=== PATIENT | female | born 1975 | race Caucasian/White ===

== ENCOUNTER 2023-05-27 19:49 | Emergency (ER) | payer OTHER, SELFPAY ==
[2023-05-27 19:54] VITALS: BP 167/95; PULSE 103; RESP 18; TEMP 36.6; O2SAT 97; BMI 44.3
--- NOTE | 2023-05-27 22:38 | ED_ITS ---
HPI - Back Pain/Injury General Chief Complaint: Back Pain/Injury Stated Complaint: Lower Back Pain Time Seen by Provider: 05/27/23 20:01 Source: patient Mode of arrival: walk-in Limitations: no limitations History of Present Illness HPI Narrative: This 48-year-old female with a history of chronic low back pain who states she has herniated discs in her back and is scheduled to see a neurosurgeon at [facility] later this month presents for evaluation of ongoing and worsening low back pain. The patient states they are opening up a new [address] in [place] and she was lifting some boxes recently and thinks she re-irritated her herniated disks. She has pain in her low back that goes down into her buttocks and both legs. She denies any recent injury. She has no loss of bowel or bladder control. She has not had a fever. She has never had any back surgery. She has been seen recently several times at [facility] emergency department and received pain medication but she states that was because she had a broken right thumb. She denies any new or changing weakness or numbness. He states she was previously receiving a cream that had gabapentin and it that did help her somewhat. She also received 90 Percocet 90 gabapentin on 04/13/2023. I discussed this with her and she states that was prescribed by her family physician who is no longer practicing family medicine and moved to [place]. Related Data Home Medications Medication Instructions Recorded Confirmed cream base no.47 (bulk) (Base, applic topical 05/27/23 PCCA Vanpen topical cream) gabapentin 300 mg capsule mg 05/27/23 glecaprevir 100 mg-pibrentasvir 40 tab PO 05/27/23 mg tablet (Mavyret) ibuprofen 800 mg tablet mg 05/27/23 lidocaine 5 % topical patch patch 05/27/23 methocarbamol 500 mg tablet mg 05/27/23 methocarbamol 750 mg tablet mg 05/27/23 oxycodone 5 mg capsule mg 05/27/23 promethazine 25 mg rectal mg KS 05/27/23 suppository tizanidine 4 mg tablet mg 05/27/23 Allergies Allergy/AdvReac Type Severity Reaction Status Date / Time hydrocodone Allergy Verified 05/27/23 19:58 ketorolac [From Toradol] Allergy Verified 05/27/23 19:58 Penicillins Allergy Verified 05/27/23 19:58 Review of Systems ROS Status of ROS 10 or more systems reviewed and unremark able except as noted in history and below [facility] Social History Smoking status: Current every day smoker Exam Narrative Exam Narrative: Nurses note and vital signs reviewed and patient is not hypoxic. Blood pressure is elevated at 167/95, pulse is mildly elevated at 103. General: Obese female resting comfortably on a stretcher, she is ambulatory with a steady gait, no respiratory distress Skin: Warm, dry, no pallor noted. There is no rash noted. Head: Normocephalic, atraumatic Eye: Normal conjunctiva, no drainage, EOMI. PERRL Cardiovascular: Regular Rate and Rhythm S1 S2, no murmurs, rubs or gallops Respiratory: Patient is in no distress, no accessory muscle use, lungs are clear to auscultation, no wheezing, rales or rhonchi Back: Lumbar soft tissue tenderness with no bony vertebral step-off, skin rash or other notable abnormality GI: Normal bowel sounds, no tenderness to palpation, no masses appreciated. No rebound, guarding, or rigidity noted. Musculoskeletal: The patient has no evidence of calf tenderness, no pitting edema, symmetrical pulses noted bilaterally, pain in low back with straight leg raising bilaterally Neurological: A&O x4, normal speech, no saddle anesthesia, DTRs are brisk and equal bilaterally, lower extremity push and pulls are intact and equal bilate rally Psychiatric: Cooperative Constitutional Vital Signs, click to edit/add: Last Vital Signs Temp 97.9 F 05/27/23 19:54 Pulse 103 H 05/27/23 19:54 Resp 18 05/27/23 19:54 BP 167/95 H 05/27/23 19:54 Pulse Ox 97 05/27/23 19:54 Course Vital Signs Vital signs: Vital Signs Temperature 97.9 F 05/27/23 19:54 Pulse Rate 103 H 05/27/23 19:54 Respiratory Rate 18 05/27/23 19:54 Blood Pressure 167/95 H 05/27/23 19:54 Pulse Oximetry 97 05/27/23 19:54 Temperature 97.9 F 05/27/23 19:54 Pulse Rate 103 H 05/27/23 19:54 Respiratory Rate 18 05/27/23 19:54 Blood Pressure 167/95 H 05/27/23 19:54 Pulse Oximetry 97 05/27/23 19:54 MDM - Back Pain/Injury MDM Narrative Medical decision making narrative: This 48 showed female history of chronic low back pain who is a herniated disc and has been seen by multiple providers recently presents for evaluation of ongoing and worsening back pain. She has low back pain that radiates into her hips and down her legs bilaterally. This is chronic in nature. She has not had any bowel or bladder dysfunction. She states her pain has gotten worse recently because she has been lifting boxes because they are opening up a new [employer] where she works. Her neuro exam is normal she is able to her the study gait. 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 She is a smoker. She has a follow-up appointment later this month with a neurosurgeon at [facility]. I did review her orders report. Her last prescription for narcotic analgesics was on 05/12/2023 when she received 9 oxycodone from a provider at [facility] emergency department. She was medicated emergency department with a dose of Solu-Medrol. I ordered Toradol but she states she is ALLERGIC to Toradol. She was given 2 Percocet in the emergency department and will be given a prescription for 10 Percocet to use as needed. I explained to her that [facility] emergency Department is not her go to for pain management and she needs to quit smoking and follow up closely with neurosurgery and her family physician. Discharge Plan Discharge Chief Complaint: Back Pain/Injury Clinical Impression: Acute exacerbation of chronic low back pain Patient Disposition: Home, Self-Care Time of Disposition Decision: 22:40 Condition: Good Prescriptions / Home Meds: No Action methocarbamol 500 mg tablet ibuprofen 800 mg tablet tizanidine 4 mg tablet promethazine 25 mg suppository KS methocarbamol 750 mg tablet lidocaine 5 % adhesive patch,medicated oxycodone 5 mg capsule gabapentin 300 mg capsule Base, PCCA Vanpen Cream TOPICAL Mavyret 100-40 mg tablet PO Instructions: Pain Management (ED), Chronic Pain (ED), Chronic Back Pain (DC), Heat Pack Application (ED), Opioid Safety (ED) Referrals: Physician,Non-Staff, MD [Primary Care Provider] - 1 week Stand Alone Forms: Portal Instructions
[2023-05-27] MEDS: METHYLPREDNISOLONE SOD SUCC PF 125 MG/2 ML VIAL IM (23:04)
[2023-05-27] MEDS: OXYCODONE HCL/ACETAMINOPHEN 5MG/325MG 2 TAB PO (23:04)
== END 2023-05-27 23:15 | disposition home or self-care (01) ==
PROVIDERS: Emergency Provider Emergency Medicine
DX: M54.50 Low back pain, unspecified (principal); G89.29 Other chronic pain; Z79.899 Other long term (current) drug therapy; F17.210 Nicotine dependence, cigarettes, uncomplicated
CPT/HCPCS: 96372; 99284; J2930

== ENCOUNTER 2023-06-05 14:20 | Emergency (ER) | payer OTHER, SELFPAY ==
[2023-06-05 14:25] VITALS: BP 129/98; PULSE 92; RESP 20; TEMP 37.1; O2SAT 97; BMI 44.3
[2023-06-05] MEDS: HYDROMORPHONE HCL 1 MG/ML CARTRIDGE IM (14:58)
[2023-06-05] MEDS: ORPHENADRINE 60 MG/ 2 ML VIAL IM (14:58)
--- NOTE | 2023-06-05 15:01 | ED.BACK1 ---
HPI - Back Pain/Injury General Chief Complaint: Back Pain/Injury Stated Complaint: BACK PAIN Time Seen by Provider: 06/05/23 14:45 Source: patient Mode of arrival: walk-in Limitations: no limitations History of Present Illness HPI Narrative: 48-year-old female presents for lower back pain. She bent over to pick something up about noon today and felt pain in her back. She has a history of back issues and has a herniated disc at L4-L5. She is scheduled to have a nerve stimulator placed soon. She always has pain going into her buttocks. She did not fall and this is the same pain she typically has. No dysuria or hematuria. Related Data Home Medications Medication Instructions Recorded Confirmed cream base no.47 (bulk) (Base, applic topical 05/27/23 PCCA Vanpen topical cream) gabapentin 300 mg capsule mg 05/27/23 glecaprevir 100 mg-pibrentasvir 40 tab PO 05/27/23 mg tablet (Mavyret) ibuprofen 800 mg tablet mg 05/27/23 lidocaine 5 % topical patch patch 05/27/23 methocarbamol 500 mg tablet mg 05/27/23 methocarbamol 750 mg tablet mg 05/27/23 oxycodone 5 mg capsule mg 05/27/23 promethazine 25 mg rectal mg MS 05/27/23 suppository tizanidine 4 mg tablet mg 05/27/23 Previous Rx's Medication Instructions Recorded oxycodone-acetaminophen 5 mg-325 1 tab PO Q6H PRN pain 5 days #20 06/05/23 mg tablet (Percocet) tabs Allergies Allergy/AdvReac Type Severity Reaction Status Date / Time hydrocodone Allergy Verified 06/05/23 14:28 ketorolac [From Toradol] Allergy Verified 06/05/23 14:28 Penicillins Allergy Verified 06/05/23 14:28 Review of Systems ROS Narrative A ten point review of systems is negative except as noted above. PFSH PFSH Social History Smoking status: Current every day smoker Exam Narrative Exam Narrative: Nurses note and vital signs reviewed and patient is not hypoxic. General: The patient appears in no apparent distress. Patient is resting comfortably on cart. Skin: Warm, dry, no pallor noted. There is no rash noted. Head: Normocephalic, atraumatic Eye: Normal conjunctiva, no drainage Ears, Nose, Mouth, and Throat: oral mucosa is moist. Nares patent. Cardiovascular: Regular Rate and Rhythm Respiratory: Patient is in no distress, no accessory muscle use, lungs are clear to auscultation, no wheezing, rales or rhonchi Back: No bruise or rash to her back GI: Soft and nontender Musculoskeletal: The patient has no evidence of calf tenderness, no pitting edema, symmetrical pulses noted bilaterally Neurological: A&O, normal speech, upper and lower extremity strength 5 out of 5 and symmetric Psychiatric: Cooperative Constitutional Vital Signs, click to edit/add: Last Vital Signs Temp 98.7 F 06/05/23 14:25 Pulse 92 H 06/05/23 14:25 Resp 20 06/05/23 14:25 BP 129/98 H 06/05/23 14:25 Pulse Ox 97 06/05/23 14:25 O2 Del Method Room Air 06/05/23 14:25 Course Vital Signs Vital signs: Vital Signs Temperature 98.7 F 06/05/23 14:25 Pulse Rate 92 H 06/05/23 14:25 Respiratory Rate 20 06/05/23 14:25 Blood Pressure 129/98 H 06/05/23 14:25 Pulse Oximetry 97 06/05/23 14:25 Oxygen Delivery Method Room Air 06/05/23 14:25 Temperature 98.7 F 06/05/23 14:25 Pulse Rate 92 H 06/05/23 14:25 Respiratory Rate 06/05/23 14:25 Blood Pressure 129/98 H 06/05/23 14:25 Pulse Oximetry 97 06/05/23 14:25 Oxygen Delivery Method Room Air 06/05/23 14:25 MDM - Back Pain/Injury MDM Narrative Medical decision making narrative: The patient was given IM Dilaudid and Norflex and feels improved and she is discharged home on Percocet. Treatment diagnosis and follow-up were discussed with the patient. There is no indication for radiographic imaging. Differential Diagnosis Differential diagnosis: Likely lumbar radiculopathy, strain of lumbar region and other (Acute exacerbation of chronic back pain, herniated disc) Discharge Plan Discharge Stand Alone Forms: Portal Instructions Chief Complaint: Back Pain/Injury Clinical Impression: Acute exacerbation of chronic low back pain Patient Disposition: Home, Self-Care Time of Disposition Decision: 15:29 Condition: Good Mode of Transportation: Private Vehicle Prescriptions / Home Meds: New oxycodone-acetaminophen [Percocet] 5-325 mg tablet 1 tab PO Q6H PRN (Reason: pain) 5 Days Qty: 20 0RF No Action methocarbamol 500 mg tablet ibuprofen 800 mg tablet tizanidine 4 mg tablet promethazine 25 mg suppository MS methocarbamol 750 mg tablet lidocaine 5 % adhesive patch,medicated oxycodone 5 mg capsule gabapentin 300 mg capsule Base, PCCA Vanpen Cream TOPICAL Mavyret 100-40 mg tablet PO Instructions: Acute Low Back Pain (ED) Referrals: Physician,Non-Staff, MD [Primary Care Provider] - 1 week
== END 2023-06-05 15:39 | disposition home or self-care (01) ==
PROVIDERS: Emergency Provider Emergency Medicine
DX: M54.50 Low back pain, unspecified (principal); G89.29 Other chronic pain; Z79.899 Other long term (current) drug therapy; F17.210 Nicotine dependence, cigarettes, uncomplicated
CPT/HCPCS: 96372; 99284; J1170

== ENCOUNTER 2023-06-17 11:45 | Emergency (ER) | payer OTHER, SELFPAY ==
[2023-06-17 12:12] VITALS: BP 172/93; PULSE 78; RESP 16; TEMP 36.8; O2SAT 96; BMI 43.4
--- NOTE | 2023-06-17 12:56 | ED.BACK1 ---
HPI - Back Pain/Injury General Chief Complaint: Back Pain/Injury Stated Complaint: BACK PAIN Time Seen by Provider: 06/17/23 12:45 Source: patient Mode of arrival: walk-in Limitations: no limitations History of Present Illness HPI Narrative: 48-year-old female presents for lower back pain. She has ongoing issues with her back and she states she has bulging disks. She is being evaluated for a nerve stimulator and that is supposed to be placed next month. No new injury. The pain does not radiate and she does not have any weakness or numbness. No dysuria or hematuria. The pain is severe and worse in certain positions. Related Data Home Medications ?Medication ?Instructions ?Recorded ?Confirmed cream base no.47 (bulk) (Base, applic topical 05/27/23 PCCA Vanpen topical cream) gabapentin 300 mg capsule mg 05/27/23 glecaprevir 100 mg-pibrentasvir 40 tab PO 05/27/23 mg tablet (Mavyret) ibuprofen 800 mg tablet mg 05/27/23 lidocaine 5 % topical patch patch 05/27/23 methocarbamol 500 mg tablet mg 05/27/23 methocarbamol 750 mg tablet mg 05/27/23 oxycodone 5 mg capsule mg 05/27/23 promethazine 25 mg rectal mg MD 05/27/23 suppository tizanidine 4 mg tablet mg 05/27/23 Previous Rx's ?Medication ?Instructions ?Recorded oxycodone-acetaminophen 5 mg-325 1 tab PO Q6H PRN pain 5 days #20 06/05/23 mg tablet (Percocet) tabs oxycodone-acetaminophen 5 mg-325 1 tab PO Q6H PRN pain 5 days #20 06/17/23 mg tablet (Percocet) tabs Allergies Allergy/AdvReac Type Severity Reaction Status Date / Time hydrocodone Allergy Verified 06/17/23 12:11 ketorolac [From Toradol] Allergy Verified 06/17/23 12:11 Penicillins Allergy Verified 06/17/23 12:11 Review of Systems ROS Narrative A ten point review of systems is negative except as noted above. PFSH PFSH Social History Smoking status: Current every day smoker Exam Narrative Exam Narrative: Nurses note and vital signs reviewed and patient is not hypoxic. General: The patient appears well and in no apparent distress. Patient is resting comfortably on cart. Skin: Warm, dry, no pallor noted. There is no rash noted. Head: Normocephalic, atraumatic Eye: Normal conjunctiva, no drainage Ears, Nose, Mouth, and Throat: oral mucosa is moist. Nares patent. Cardiovascular: Regular Rate and Rhythm Respiratory: Patient is in no distress, no accessory muscle use, lungs are clear to auscultation, no wheezing, rales or rhonchi Back: No bruise or rash. Ice pack is in place. No focal area of tenderness to palpation. GI: Soft and nontender Musculoskeletal: The patient has no evidence of calf tenderness, no pitting edema, symmetrical pulses noted bilaterally Neurological: A&O, normal speech Psychiatric: Cooperative Constitutional Vital Signs, click to edit/add: Last Vital Signs Temp 98.2 F 06/17/23 12:12 Pulse 78 06/17/23 12:12 Resp 16 06/17/23 12:12 BP 172/93 H 06/17/23 12:12 Pulse Ox 96 06/17/23 12:12 O2 Del Method Room Air 06/17/23 12:12 Course Vital Signs Vital signs: Vital Signs Temperature 98.2 F 06/17/23 12:12 Pulse Rate 78 06/17/23 12:12 Respiratory Rate 16 06/17/23 12:12 Blood Pressure 172/93 H 06/17/23 12:12 Pulse Oximetry 96 06/17/23 12:12 Oxygen Delivery Method Room Air 06/17/23 12:12 Temperature 98.2 F 06/17/23 12:12 Pulse Rate 78 06/17/23 12:12 Respiratory Rate 16 06/17/23 12:12 Blood Pressure 172/93 H 06/17/23 12:12 Pulse Oximetry 96 06/17/23 12:12 Oxygen Delivery Method Room Air 06/17/23 12:12 MDM - Back Pain/Injury MDM Narrative Medical decision making narrative: She was given injections of Dilaudid and Norflex and prescribed Percocet. She was instructed to have follow-up with her physician. Treatment diagnosis and follow-up were discussed with the patient Differential Diagnosis Differential diagnosis: Likely lumbar radiculopathy, sciatica, strain of lumbar region and other (Herniated disc) Discharge Plan Discharge Stand Alone Forms: Portal Instructions Chief Complaint: Back Pain/Injury Clinical Impression: Acute exacerbation of chronic low back pain Patient Disposition: Home, Self-Care Time of Disposition Decision: 12:53 Condition: Good Mode of Transportation: Private Vehicle Prescriptions / Home Meds: New oxycodone-acetaminophen [Percocet] 5-325 mg tablet 1 tab PO Q6H PRN (Reason: pain) 5 Days Qty: 20 0RF No Action oxycodone-acetaminophen [Percocet] 5-325 mg tablet 1 tab PO Q6H PRN (Reason: pain) 5 Days Qty: 20 0RF methocarbamol 500 mg tablet ibuprofen 800 mg tablet tizanidine 4 mg tablet promethazine 25 mg suppository MD methocarbamol 750 mg tablet lidocaine 5 % adhesive patch,medicated oxycodone 5 mg capsule gabapentin 300 mg capsule Base, PCCA Vanpen Cream TOPICAL Mavyret 100-40 mg tablet PO Print Language: Occitan Instructions: Acute Low Back Pain (ED) Referrals: Physician,Non-Staff, MD [Primary Care Provider] - 1 week
[2023-06-17] MEDS: HYDROMORPHONE HCL 1 MG/ML CARTRIDGE IM (13:08)
[2023-06-17] MEDS: ORPHENADRINE 60 MG/ 2 ML VIAL IM (13:09)
== END 2023-06-17 13:15 | disposition home or self-care (01) ==
PROVIDERS: Emergency Provider Emergency Medicine
DX: M54.50 Low back pain, unspecified (principal); G89.29 Other chronic pain; Z79.899 Other long term (current) drug therapy; F17.210 Nicotine dependence, cigarettes, uncomplicated
CPT/HCPCS: 96372; 99284; J1170

== ENCOUNTER 2023-06-25 09:09 | Emergency (ER) | payer OTHER, SELFPAY ==
--- NOTE | 2023-06-25 | MR_ITS ---
[address] [address] Patient Name: JERAD BROWN MRN: [facility]:[id number] date: 1975 Sex: F Assigned Patient Location: ER Current Patient Location: ER Accession/Order Number: [id number] Exam Date: 06/25/2023 11:35 Report Date: 06/25/2023 12:37 At the request of: LYNDA HINTON Procedure: MR lumbar spine wo con EXAM: MR lumbar spine wo con CLINICAL INDICATION: loss of sensation, R/O cauda equina COMPARISON: CT lumbar spine 04/08/2023. TECHNIQUE/PROTOCOL: Noncontrast lumbar spine MR protocol (Sagittal T1, T2, STIR and axial T1, T2 sequences). FINDINGS: Segmentation: Normal. Conus: Terminates at mid L2. Spinal Cord and Cauda Equina: Normal. Epidural Hematoma: None. Alignment: Normal. Marrow Signal: Degenerative reactive marrow endplate changes at L4-L5. Vertebral Body Heights: Maintained. Sacroiliac Joints: Grossly normal given only partially visualized. Paraspinal Soft Tissues: Normal. Retroperitoneal Soft Tissues: No acute abnormalities. Spondylotic Changes: Mild multilevel spondylotic changes include varying degrees of intervertebral disc height loss, disc desiccation, osteophytic ridging, and facet/ligamentum flavum hypertrophy. T12-L1: No disc bulge or herniation. No high-grade spinal canal or foraminal narrowing. L1-L2: No disc bulge or herniation. No high-grade spinal canal or foraminal narrowing. L2-L3: No disc bulge or herniation. No high-grade spinal canal or foraminal narrowing. L3-L4: No disc bulge or herniation. No high-grade spinal canal or foraminal narrowing. L4-L5: Disc bulge with hyperintense T2 annular fissure indents the ventral thecal sac and compresses the transiting left L5 nerve root. Disc material possibly contacts the transiting right L5 nerve root. Mild spinal canal narrowing is also contributed to by moderate bilateral facet/ligamentum flavum hypertrophy. Moderate bilateral foraminal narrowing. L5-S1: Slight disc bulge with superimposed central disc protrusion minimally indents the ventral thecal sac. No high-grade spinal canal narrowing. Moderate right and mild left foraminal narrowing. Moderate bilateral facet hypertrophy. MR/MR lumbar spine wo con IMPRESSION: 1. Mild multilevel spondylotic changes without high-grade spinal canal or foraminal narrowing at any lumbar level. 2. Disc bulge at L4-L5 compresses the transiting left L5 nerve root and possibly contacts the transiting right L5 nerve root. 3. Foraminal narrowing is at most moderate bilaterally at L4-L5 and on the right at L5-S1. Electronically authenticated by: ALEN FRANKEL Date: 06/25/2023 12:37
[2023-06-25 09:14] VITALS: BP 130/88; PULSE 86; TEMP 36.5; O2SAT 97; BMI 44.3
--- NOTE | 2023-06-25 09:22 | PC.NURSE ---
Patient arrives c/o left leg numbness and states that she is unable to tell when her bladder is full. Patient ambulates to room and moves onto bed with no issues. patient is able to do straight leg raises and push/pull tests with equal strength. patient tells this nurse that she had urinary incontinence twice. when physician entered room, patient stated she had two episodes of bowel incontinence and denies the urinary incontinence. patient has motril and flexeril at home but patient states she did not take these prior to arrival.
[2023-06-25] MEDS: ORPHENADRINE 60 MG/ 2 ML VIAL IM (10:25)
--- NOTE | 2023-06-25 13:20 | ED.BACK1 ---
HPI HPI - Back Pain/Injury General Chief Complaint: Back Pain/Injury Stated Complaint: BACK PAIN Time Seen by Provider: 06/25/23 09:13 Source: patient Mode of arrival: walk-in Limitations: no limitations History of Present Illness HPI Narrative: 48-year-old female presents for lower back pain. She was directed here by her neurologist because she called and told him that she had lost control of her bowels twice and could not sense if she needed to urinate or not. She has ongoing issues and is under the care of a neurologist. She has had no fever or dysuria. No injury. Related Data Home Medications ?Medication ?Instructions ?Recorded ?Confirmed cream base no.47 (bulk) (Base, applic topical 05/27/23 PCCA Vanpen topical cream) gabapentin 300 mg capsule mg 05/27/23 glecaprevir 100 mg-pibrentasvir 40 tab PO 05/27/23 mg tablet (Mavyret) ibuprofen 800 mg tablet mg 05/27/23 lidocaine 5 % topical patch patch 05/27/23 methocarbamol 500 mg tablet mg 05/27/23 methocarbamol 750 mg tablet mg 05/27/23 oxycodone 5 mg capsule mg 05/27/23 promethazine 25 mg rectal mg DC 05/27/23 suppository tizanidine 4 mg tablet mg 05/27/23 Previous Rx's ?Medication ?Instructions ?Recorded oxycodone-acetaminophen 5 mg-325 1 tab PO Q6H PRN pain 5 days #20 06/05/23 mg tablet (Percocet) tabs oxycodone-acetaminophen 5 mg-325 1 tab PO Q6H PRN pain 5 days #20 06/17/23 mg tablet (Percocet) tabs Allergies Allergy/AdvReac Type Severity Reaction Status Date / Time hydrocodone Allergy Verified 06/17/23 12:11 ketorolac [From Toradol] Allergy Verified 06/17/23 12:11 Penicillins Allergy Verified 06/17/23 12:11 Opioid HPI Opioid Management Most Recent Opioid Data: Last Pain Scale 8 06/17/23 13:08 Review of Systems ROS Narrative A ten point review of systems is negative except as noted above. PFSH PFSH Social History Smoking status: Current every day smoker Exam Narrative Exam Narrative: Nurses note and vital signs reviewed and patient is not hypoxic. General: The patient appears in no apparent distress. Skin: Warm, dry, no pallor noted. There is no rash noted. Head: Normocephalic, atraumatic Eye: Normal conjunctiva, no drainage Ears, Nose, Mouth, and Throat: oral mucosa is moist. Nares patent. Cardiovascular: Regular Rate and Rhythm Respiratory: Patient is in no distress, no accessory muscle use, lungs are clear to auscultation, no wheezing, rales or rhonchi Back: No bruise or rash GI: no tenderness to palpation, no masses appreciated. No rebound, guarding, or rigidity noted. Musculoskeletal: No ankle edema. Motor strength intact in her lower extremities Neurological: A&O, normal speech; motor strength intact in her lower extremities. Arms have full range of motion Psychiatric: Cooperative Constitutional Vital Signs, click to edit/add: Last Vital Signs Temp 97.7 F 06/25/23 09:14 Pulse 86 06/25/23 09:14 Resp 24 H 06/25/23 09:14 BP 130/88 06/25/23 09:14 Pulse Ox 97 06/25/23 09:14 O2 Del Method Room Air 06/25/23 09:14 Course Vital Signs Vital signs: Vital Signs Temperature 97.7 F 06/25/23 09:14 Pulse Rate 86 06/25/23 09:14 Respiratory Rate 24 H 06/25/23 09:14 Blood Pressure 130/88 06/25/23 09:14 Pulse Oximetry 97 06/25/23 09:14 Oxygen Delivery Method Room Air 06/25/23 09:14 Temperature 97.7 F 06/25/23 09:14 Pulse Rate 86 06/25/23 09:14 Respiratory Rate 24 H 06/25/23 09:14 Blood Pressure 130/88 06/25/23 09:14 Pulse Oximetry 97 06/25/23 09:14 Oxygen Delivery Method Room Air 06/25/23 09:14 MDM - Back Pain/Injury MDM Narrative Medical decision making narrative: MRI findings are discussed with the patient. She was recommended to have pain medication from her neurologist or family doctor or from pain management. She has been in this emergency department multiple times over the past month for ongoing pain. She was given IM Norflex here. No evidence of cauda equina syndrome. Differential Diagnosis Differential diagnosis: Likely lumbar radiculopathy, sciatica and other (Cauda equina) Imaging Data MRI lumbar: Radiologist's impression: ITS Impressions Lumbar Spine MRI 06/25/23 00:00 IMPRESSION: 1. Mild multilevel spondylotic changes without high-grade spinal canal or foraminal narrowing at any lumbar level. 2. Disc bulge at L4-L5 compresses the transiting left L5 nerve root and possibly contacts the transiting right L5 nerve root. 3. Foraminal narrowing is at most moderate bilaterally at L4-L5 and on the right at L5-S1. Electronically authenticated by: ALEN FRANKEL Date: 06/25/2023 12:37 Discharge Plan Discharge Stand Alone Forms: Portal Instructions Chief Complaint: Back Pain/Injury Clinical Impression: Acute exacerbation of chronic low back pain Patient Disposition: Home, Self-Care Time of Disposition Decision: 13:20 Condition: Good Mode of Transportation: Private Vehicle Prescriptions / Home Meds: No Action oxycodone-acetaminophen [Percocet] 5-325 mg tablet 1 tab PO Q6H PRN (Reason: pain) 5 Days Qty: 20 0RF methocarbamol 500 mg tablet ibuprofen 800 mg tablet tizanidine 4 mg tablet promethazine 25 mg suppository DC methocarbamol 750 mg tablet lidocaine 5 % adhesive patch,medicated oxycodone 5 mg capsule gabapentin 300 mg capsule Base, PCCA Vanpen Cream TOPICAL Mavyret 100-40 mg tablet PO oxycodone-acetaminophen [Percocet] 5-325 mg tablet 1 tab PO Q6H PRN (Reason: pain) 5 Days Qty: 20 0RF Print Language: Danish Instructions: Chronic Pain (ED) Referrals: Physician,Non-Staff, MD [Primary Care Provider] - 1 week
== END 2023-06-25 13:32 | disposition home or self-care (01) ==
PROVIDERS: Emergency Provider Emergency Medicine
DX: M54.50 Low back pain, unspecified (principal); G89.29 Other chronic pain; F17.210 Nicotine dependence, cigarettes, uncomplicated; Z79.899 Other long term (current) drug therapy
CPT/HCPCS: 72148; 99285

== ENCOUNTER 2023-07-16 11:20 | Emergency (ER) | payer OTHER, SELFPAY ==
[2023-07-16 11:24] VITALS: BP 169/96; PULSE 88; TEMP 36.8; O2SAT 98; BMI 42.2
--- NOTE | 2023-07-16 12:02 | ED.BACK1 ---
HPI HPI - Back Pain/Injury General Chief Complaint: Back Pain/Injury Stated Complaint: BACK PAIN Time Seen by Provider: 07/16/23 11:26 Source: patient Mode of arrival: walk-in Limitations: no limitations History of Present Illness HPI Narrative: Patient has chronic back pain for which she sees a neurosurgeon and plans to have back surgery next month. Over the last few months she has tried narcotics, lidocaine patches and a variety of other meds without complete relief. She said that right now her surgeon only has me on ibuprofen and won't prescribe anything until my surgery . 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 She presents now with pain in the right lower back that worsened yesterday. No injury or activity to cause the pain to worsen. No bowel or bladder dysfunction,. No fever or chills. No neck pain or abdominal pain. Pain radiates from the right lower back down the outside of the right leg. All of these symptoms are typical for her and the same symptoms she has been experiencing for the last few months. Related Data Home Medications ?Medication ?Instructions ?Recorded ?Confirmed ibuprofen 800 mg tablet 800 mg PO Q8H 05/27/23 07/16/23 fluoxetine 60 mg tablet 60 mg PO DAILY 07/16/23 07/16/23 Previous Rx's ?Medication ?Instructions ?Recorded methocarbamol 750 mg tablet 750 mg PO Q6H PRN pain #30 tabs 07/16/23 nabumetone 750 mg tablet 750 mg PO BID PRN pain #14 tabs 07/16/23 Allergies Allergy/AdvReac Type Severity Reaction Status Date / Time hydrocodone Allergy Verified 06/17/23 12:11 ketorolac [From Toradol] Allergy Verified 06/17/23 12:11 Penicillins Allergy Verified 06/17/23 12:11 Opioid HPI Opioid Management Most Recent Opioid Data: Last Pain Scale 8 07/16/23 11:27 PFSH PFSH Social History Smoking status: Current every day smoker Exam Narrative Exam Narrative: General: Alert, no acute distress, patient resting comfortably Skin: warm, intact, no pallor noted Head: Normocephalic, atraumatic Eye: Normal conjunctiva Respiratory: No acute distress Abdomen: obese. Normal bowel sounds, soft, nontender, no masses detected. No rebound, guarding, or rigidity noted. Back: inspection of the back shows no obvious deformity, no swelling, no ecchymosis, contusion, abrasion, swelling, erythema, fluctuance or induration. Tenderness noted to Right paralumbar soft tissue. Straight leg raise on left is Negative. Straight leg raise on right is Positive. No CVA tenderness noted bilaterally. Musculoskeletal: No deformity noted to bilateral lower extremities. no cyanosis or mottling noted. normal pulses at DP and PT 2+ bilaterally and symmetrically. Normal 5/5 strength at ankles with dorsiflexion and plantar flexion. Patient is able to ambulate. Normal sensation noted to both lower extremities. Neurological: AAOx4, normal sensory and motor observed. L5-S1 reflexes intact symmetrically. DTR 2+ at patellar bilaterally. Psychiatric: Cooperative and interactive. Constitutional Vital Signs, click to edit/add: Last Vital Signs Temp 98.3 F 07/16/23 11:24 Pulse 88 07/16/23 11:24 Resp 18 07/16/23 11:24 BP 169/96 H 07/16/23 11:24 Pulse Ox 98 07/16/23 11:24 O2 Del Method Room Air 07/16/23 11:24 Course Vital Signs Vital signs: Vital Signs Temperature 98.3 F 07/16/23 11:24 Pulse Rate 88 07/16/23 11:24 Respiratory Rate 18 07/16/23 11:24 Blood Pressure 169/96 H 07/16/23 11:24 Pulse Oximetry 98 07/16/23 11:24 Oxygen Delivery Method Room Air 07/16/23 11:24 Temperature 98.3 F 07/16/23 11:24 Pulse Rate 88 07/16/23 11:24 Respiratory Rate 18 07/16/23 11:24 Blood Pressure 169/96 H 07/16/23 11:24 Pulse Oximetry 98 07/16/23 11:24 Oxygen Delivery Method Room Air 07/16/23 11:24 MDM - Back Pain/Injury MDM Narrative Medical decision making narrative: No neurological deficits to suggest acute cauda equina syndrome. No bowel or bladder incontinence or retention. She has normal movement of the lower extremities and intact reflexes and sensation in both lower extremities. The patient received IM Solu-Medrol and IM Norflex before being discharged home with prescriptions for Relafen and Robaxin. She was instructed to follow-up with her surgeon as needed or return to the ED if she worsens. Discharge Plan Discharge Stand Alone Forms: Portal Instructions Chief Complaint: Back Pain/Injury Clinical Impression: Lumbar radiculopathy, Acute exacerbation of chronic low back pain Patient Disposition: Home, Self-Care Time of Disposition Decision: 12:06 Prescriptions / Home Meds: New nabumetone 750 mg tablet 750 mg PO BID PRN (Reason: pain) Qty: 14 0RF methocarbamol 750 mg tablet 750 mg PO Q6H PRN (Reason: pain) Qty: 30 0RF No Action ibuprofen 800 mg tablet 800 mg PO Q8H fluoxetine 60 mg tablet 60 mg PO DAILY Print Language: Nepali Instructions: Chronic Pain (ED), Acute Low Back Pain (ED), Lumbar Radiculopathy (ED) Referrals: Physician,Non-Staff, MD [Primary Care Provider] - 1 week
[2023-07-16] MEDS: ORPHENADRINE 60 MG/ 2 ML VIAL IM (12:11)
[2023-07-16] MEDS: METHYLPREDNISOLONE SOD SUCC PF 125 MG/2 ML VIAL IM (12:11)
[2023-07-16 12:19] VITALS: BP 148/88; PULSE 88; O2SAT 98
== END 2023-07-16 12:20 | disposition home or self-care (01) ==
PROVIDERS: Emergency Provider Emergency Medicine
DX: M54.16 Radiculopathy, lumbar region (principal); G89.29 Other chronic pain; M54.50 Low back pain, unspecified; E66.9 Obesity, unspecified; Z68.41 Body mass index [BMI] 40.0-44.9, adult; F17.210 Nicotine dependence, cigarettes, uncomplicated; Z79.899 Other long term (current) drug therapy
CPT/HCPCS: 96372; 99284; J2919

== ENCOUNTER 2023-08-09 11:04 | Emergency (ER) | payer OTHER, SELFPAY ==
[2023-08-09 11:18] VITALS: BP 150/101; PULSE 85; TEMP 36.7; O2SAT 98; BMI 44.3
--- NOTE | 2023-08-09 13:07 | ED_ITS ---
HPI HPI - Back Pain/Injury General Chief Complaint: Back Pain/Injury Stated Complaint: LOWER BACK PAIN Time Seen by Provider: 08/09/23 13:05 Source: patient Mode of arrival: walk-in Limitations: no limitations History of Present Illness HPI Narrative: Patient is a 48-year-old female presents to the ER with acute on chronic low back pain. Patient states she is scheduled for a spine stimulator to be placed with neurosurgery on 08/20, she was advised to stop her Motrin 14 days before surgery and has since been experiencing increased pain in her lower back. Patient notes chronic pain radiating into her legs that goes down the posterior thigh stopping at the knee. She denies symptoms into her gil or feet. She denies pain into her calf. She denies any bowel or bladder incontinence or saddle paresthesias. Patient notes pain is worse with movement but she is seen pacing about the room in no distress waiting provider in the hallway. Patient is pleasant but states that she typically gets treated with IM pain medication and unfortunately cannot do any more steroids with upcoming surgery. Patient states she does not see pain management. Patient denies any new injury or roma nge in symptoms and states her pain is chronic in her lower back moderate worse with movement and diffuse across the lower lumbar spine. Denies dysuria MD elicited complaint: Reports back pain Pertinent past history: Reports prior back pain; Denies neurological deficit Severity: moderate Similar Symptoms Previously: No Quality: Reports aching Location: Reports lumbar spine Related Data Home Medications ?Medication ?Instructions ?Recorded ?Confirmed ibuprofen 800 mg tablet 800 mg PO Q8H 05/27/23 08/09/23 fluoxetine 60 mg tablet 60 mg PO DAILY 07/16/23 08/09/23 Previous Rx's ?Medication ?Instructions ?Recorded methocarbamol 750 mg tablet 750 mg PO Q6H PRN pain #30 tabs 07/16/23 Allergies Allergy/AdvReac Type Severity Reaction Status Date / Time hydrocodone Allergy Verified 06/17/23 12:11 ketorolac [From Toradol] Allergy Verified 06/17/23 12:11 Penicillins Allergy Verified 06/17/23 12:11 nabumet Allergy Mild Uncoded 07/16/23 12:15 nabumetone Allergy Mild Uncoded 07/16/23 12:15 Review of Systems ROS Constitutional Denies: fever or chills Eyes Denies: change in vision Ears, nose, mouth, and throat Denies: throat pain Cardiovascular Denies: chest pain, palpitations or bluish discoloration of hands/feet Respiratory Denies: shortness of breath or cough Gastrointestinal Denies: abdominal pain Musculoskeletal Reports: back pain and limited range of motion; Denies: neck pain Integumentary/Breast Denies: rash, itching or redness Neurological Denies: headache, numbness in extremities, weakness in extremities or lack of coordination Psychiatric Denies: anxiety Endocrine Denies: excessive urination Allergic/Immunologic Denies: hives [facility] Social History Smoking status: Current every day smoker Exam Narrative Exam Narrative: Vital Signs reviewed and nurse's notes reviewed. The patient is not hypoxic. General: Alert, no acute distress, patient Standing, no acute distress in the doorway upon my arrival to the room. Ambulates easily about the room. Skin: warm, intact, no pallor noted, no rash Head: Normocephalic, atraumatic Eye: Normal conjunctiva, EOMI Respiratory: No acute distress Abdomen: Normal bowel sounds, soft, nontender, no masses detected. No rebound, guarding, or rigidity noted. No midline pulsatile mass. Back: inspection of the back shows no obvious deformity, no swelling, no ecchymosis, contusion, abrasion, swelling, erythema, fluctuance or induration. No step offs or crepitus noted. No CVA tenderness noted bilaterally. Tenderness noted to Paravertebral lumbar region, no midline bony tenderness. Mild spasm noted.. Straight leg raise on left is Negative in seated position . Straight leg raise on right is In seated position. Musculoskeletal: No deformity noted to bilateral lower extremities. no cyanosis or mottling noted. normal pulses at DP and PT 2+ bilaterally and symmetrically. Normal 5/5 strength at ankles with dorsiflexion and plantar flexion. Patient is able to ambulate. Normal sensation noted to the bilateral lower extremities. Neurological: alert and oriented x4, normal sensory and motor observed. DTR 2+ at patellar and achilles bilaterally. Psychiatric: Cooperative Constitutional Vital Signs, click to edit/add: Last Vital Signs Temp 98.1 F 08/09/23 11:18 Pulse 85 08/09/23 11:18 Resp 18 08/09/23 11:18 BP 150/101 H 08/09/23 11:18 Pulse Ox 98 08/09/23 11:18 O2 Del Method Room Air 08/09/23 11:18 Course Vital Signs Vital signs: Vital Signs Temperature 98.1 F 08/09/23 11:18 Pulse Rate 85 08/09/23 11:18 Respiratory Rate 18 08/09/23 11:18 Blood Pressure 150/101 H 08/09/23 11:18 Pulse Oximetry 98 08/09/23 11:18 Oxygen Delivery Method Room Air 08/09/23 11:18 Temperature 98.1 F 08/09/23 11:18 Pulse Rate 85 08/09/23 11:18 Respiratory Rate 18 08/09/23 11:18 Blood Pressure 150/101 H 08/09/23 11:18 Pulse Oximetry 98 08/09/23 11:18 Oxygen Delivery Method Room Air 08/09/23 11:18 MDM - Back Pain/Injury MDM Narrative Medical decision making narrative: Discussed patient's history, prior MRI, I feel she is having myofascial lower back pain, denies CVA tenderness. Reviewed her MRI and she does not have any L5-S1 or L4 complaints in the lower leg and actually demonstrates pain more favorable to sciatica. We discussed the chronicity of her symptoms, [facility] was reviewed noting multiple providers with short-term narcotic prescriptions. Patient states she typically receives IM Dilaudid in the ER, I do not feel this is indicated. I am compassionate that she does have pain and will give her 1 Percocet here with a muscle relaxant injection but she is to contact her on-call neurosurgeon to discuss her pain needs now that she has stopped her daily anti-inflammatory pending upcoming surgery. Patient given number for local pain management if her neurosurgeon suggest this as a treatment plan pending her stimulator. Patient denies any bowel or bladder incontinence or saddle paresthesias. Notes chronic pain posterior thighs. Patient admits this is the same pain that she has had for months unchanged. Patient educated on medication safety. The patient is to followup with primary care physician in next 2-3 days or to return to the emergency department should any of the signs or symptoms worsen or new symptoms develop. Patient had questions answered. The patient agrees with the following Diagnosis and Treatment plan and the patient will be discharged home. Medical Records Attestation: I reviewed the patient's medical records. Medical records narrative: MRN: [facility]:[id number] date: 1975 Sex: F Assigned Patient Location: Current Patient Location: Accession/Order Number: [id number] Exam Date: 06/25/2023 11:35 Report Date: 06/26/2023 08:50 At the request of: LYNDA HINTON Procedure: MR lumbar spine wo con Begin Addendum #1 Addendum requested as prior MRI lumbar spine from 10/31/2022 is now available in PACS for review. Since 10/31/2022, there has been no substantial progression of the mild multilevel spondylotic changes. Overall findings are unchanged. Original Report EXAM: MR lumbar spine wo con CLINICAL INDICATION: loss of sensation, R/O cauda equina COMPARISON: CT lumbar spine 04/08/2023. TECHNIQUE/PROTOCOL: Noncontrast lumbar spine MR protocol (Sagittal T1, T2, STIR and axial T1, T2 sequences). FINDINGS: Segmentation: Normal. Conus: Terminates at mid L2. Spinal Cord and Cauda Equina: Normal. Epidural Hematoma: None. Alignment: Normal. Marrow Signal: Degenerative reactive marrow endplate changes at L4-L5. Vertebral Body Heights: Maintained. Sacroiliac Joints: Grossly normal given only partially visualized. Paraspinal Soft Tissues: Normal. Retroperitoneal Soft Tissues: No acute abnormalities. Spondylotic Changes: Mild multilevel spondylotic changes include varying degrees of intervertebral disc height loss, disc desiccation, osteophytic ridging, and facet/ligamentum flavum hypertrophy. T12-L1: No disc bulge or herniation. No high-grade spinal canal or foraminal narrowing. L1-L2: No disc bulge or herniation. No high-grade spinal canal or foraminal narrowing. L2-L3: No disc bulge or herniation. No high-grade spinal canal or foraminal narrowing. L3-L4: No disc bulge or herniation. No high-grade spinal canal or foraminal narrowing. L4-L5: Disc bulge with hyperintense T2 annular fissure indents the ventral thecal sac and compresses the transiting left L5 nerve root. Disc material possibly contacts the transiting right L5 nerve root. Mild spinal canal narrowing is also contributed to by moderate bilateral facet/ligamentum flavum hypertrophy. Moderate bilateral foraminal narrowing. L5-S1: Slight disc bulge with superimposed central disc protrusion minimally indents the ventral thecal sac. No high-grade spinal canal narrowing. Moderate right and mild left foraminal narrowing. Moderate bilateral facet hypertrophy. IMPRESSION: 1. Mild multilevel spondylotic changes without high-grade spinal canal or foraminal narrowing at any lumbar level. 2. Disc bulge at L4-L5 compresses the transiting left L5 nerve root and possibly contacts the transiting right L5 nerve root. 3. Foraminal narrowing is at most moderate bilaterally at L4-L5 and on the right at L5-S1. Electronically authenticated by: ALEN FRANKEL Date: 06/26/2023 08:50 Discharge Plan Discharge Stand Alone Forms: Portal Instructions Chief Complaint: Back Pain/Injury Clinical Impression: Acute exacerbation of chronic low back pain Patient Disposition: Home, Self-Care Time of Disposition Decision: 13:23 Condition: Good Prescriptions / Home Meds: No Action ibuprofen 800 mg tablet 800 mg PO Q8H fluoxetine 60 mg tablet 60 mg PO DAILY methocarbamol 750 mg tablet 750 mg PO Q6H PRN (Reason: pain) Qty: 30 0RF Print Language: Italian Instructions: Chronic Pain (ED), Opioid Safety (ED) Additional Instructions: Please contact your Neurosurgeon today/ physician loss control engineer at to discuss pain managment with stopping motrin before surgery: Yoanna pain management: [phone] Referrals: Physician,Non-Staff, MD [Primary Care Provider] - 1 week Discharge Date/Time: 08/09/23 13:41
[2023-08-09] MEDS: ORPHENADRINE 60 MG/ 2 ML VIAL IM (13:34)
[2023-08-09] MEDS: OXYCODONE HCL/ACETAMINOPHEN 5MG/325MG 1 TAB PO (13:35)
== END 2023-08-09 13:41 | disposition home or self-care (01) ==
PROVIDERS: Emergency Provider Emergency Medicine
DX: M54.50 Low back pain, unspecified (principal); G89.29 Other chronic pain; Z79.899 Other long term (current) drug therapy; F17.210 Nicotine dependence, cigarettes, uncomplicated
CPT/HCPCS: 96372; 99284

== ENCOUNTER 2023-08-12 19:02 | Emergency (ER) | payer OTHER, SELFPAY ==
[2023-08-12 19:12] VITALS: BP 172/85; PULSE 81; TEMP 36.9; O2SAT 97; BMI 44.3
== END 2023-08-12 20:30 | disposition left against medical advice (07) ==
PROVIDERS: Emergency Provider Emergency Medicine
DX: Z53.21 Procedure and treatment not carried out due to patient leaving prior to being seen by health care provider (principal)

== ENCOUNTER 2023-08-15 11:35 | Emergency (ER) | payer OTHER, SELFPAY ==
[2023-08-15 11:38] VITALS: BP 167/90; PULSE 92; TEMP 36.8; O2SAT 98; BMI 44.6
--- NOTE | 2023-08-15 11:40 | XR_ITS ---
The [address] [address] Patient Name: JERAD BROWN MRN: [id number] date: 1975 Sex: F Assigned Patient Location: ED.MAIN Current Patient Location: ER Accession/Order Number: [id number] Exam Date: 08/15/2023 11:50 Report Date: 08/15/2023 12:51 At the request of: LYNDA HINTON Procedure: XR hand RT min 3V PROCEDURE: XR hand RT min 3V COMPARISON: None. HISTORY: injury c/o pain attn. to right thumb FINDINGS: BONES:Moderate degenerative change at the first metacarpal phalangeal joint. Contour deformity base of the first metacarpal and heterotopic ossification along the radial aspect of the trapezoid. I favor degenerative policy change clerk an acute fracture SOFT TISSUES:Negative. No visible soft tissue swelling. EFFUSION:None visible. OTHER: Negative. XR/XR hand RT min 3V IMPRESSION: Moderate degenerative changes of the first carpometacarpal joint Electronically authenticated by: BROOK PUENTES Date: 08/15/2023 12:51
--- NOTE | 2023-08-15 11:48 | ED_ITS ---
HPI HPI - Extremity Injury (Upper) General Chief Complaint: Extremity Injury, Upper Stated Complaint: UPPER EXTREMITY INJURY Time Seen by Provider: 08/15/23 11:40 Source: patient Mode of arrival: walk-in Limitations: no limitations History of Present Illness HPI narrative: 48-year-old female presents to the emergency department for chief complaint of pain to her right thumb. She tripped and caught it on a counter today, hyper flexing the MCP joint, which is where most of her pain is. No other injury was sustained, the other fingers do not hurt. It hurts more to move it or push on i t. Related Data Home Medications ?Medication ?Instructions ?Recorded ?Confirmed fluoxetine 60 mg tablet 60 mg PO DAILY 07/16/23 08/12/23 Previous Rx's ?Medication ?Instructions ?Recorded methocarbamol 750 mg tablet 750 mg PO Q6H PRN pain #30 tabs 07/16/23 Allergies Allergy/AdvReac Type Severity Reaction Status Date / Time hydrocodone Allergy Verified 08/15/23 11:38 ketorolac [From Toradol] Allergy Verified 08/15/23 11:38 Penicillins Allergy Verified 08/15/23 11:38 nabumet Allergy Mild Uncoded 08/15/23 11:38 nabumetone Allergy Mild Uncoded 08/15/23 11:38 Opioid HPI Opioid Management Most Recent Pain and Opioid Data: Last Pain Scale 6 08/15/23 11:52 Last ED Pain Assessment 08/15/23 11:52 Review of Systems ROS Narrative A ten point review of systems is negative except as noted above. PFSH PFSH Social History Smoking status: Current every day smoker Exam Narrative Exam Narrative: Nurses note and vital signs reviewed and patient is not hypoxic. General: The patient appears well and in no apparent distress. Patient is resting comfortably on cart. Skin: Warm, dry, no pallor noted. There is no rash noted. Head: Normocephalic, atraumatic Eye: Normal conjunctiva, no drainage Ears, Nose, Mouth, and Throat: oral mucosa is moist. Nares patent. Cardiovascular: Regular Rate and Rhythm Respiratory: Patient is in no distress, no accessory muscle use, lungs are clear to auscultation, no wheezing, rales or rhonchi Back: non-tender GI: Soft and nontender Musculoskeletal: The right thumb is not swollen or bruised. Skin intact. She has tenderness at the MCP joint area. Other fingers are nontender. Wrist nontender. Neurological: A&O, normal speech Psychiatric: Cooperative Constitutional Vital Signs, click to edit/add: Last Vital Signs Temp 98.3 F 08/15/23 11:38 Pulse 92 H 08/15/23 11:38 Resp 16 08/15/23 11:38 BP 167/90 H 08/15/23 11:38 Pulse Ox 98 08/15/23 11:38 O2 Del Method Room Air 08/15/23 11:38 Course Vital Signs Vital signs: Vital Signs Temperature 98.3 F 08/15/23 11:38 Pulse Rate 92 H 08/15/23 11:38 Respiratory Rate 16 08/15/23 11:38 Blood Pressure 167/90 H 08/15/23 11:38 Pulse Oximetry 98 08/15/23 11:38 Oxygen Delivery Method Room Air 08/15/23 11:38 Temperature 98.3 F 08/15/23 11:38 Pulse Rate 92 H 08/15/23 11:38 Respiratory Rate 16 08/15/23 11:38 Blood Pressure 167/90 H 08/15/23 11:38 Pulse Oximetry 98 08/15/23 11:38 Oxygen Delivery Method Room Air 08/15/23 11:38 MDM - Extremity Injury (Upper) MDM Narrative Medical decision making narrative: X-rays are negative and thumb spica splint applied, application checked by me and found to be appropriate, she is neurovascularly intact. Treatment diagnosis and follow-up were discussed with the patient. Differential Diagnosis Differential diagnosis: Likely other (Thumb fracture, thumb sprain) Imaging Data Hand x-ray: Radiologist's impression: ITS Impressions Hand X-Ray 08/15/23 11:40 IMPRESSION: Moderate degenerative changes of the first carpometacarpal joint Electronically authenticated by: BROOK PUENTES Date: 08/15/2023 12:51 Discharge Plan Discharge Stand Alone Forms: Portal Instructions Chief Complaint: Extremity Injury, Upper Clinical Impression: Sprain of right thumb Patient Disposition: Home, Self-Care Time of Disposition Decision: 13:03 Condition: Good Mode of Transportation: Private Vehicle Prescriptions / Home Meds: No Action fluoxetine 60 mg tablet 60 mg PO DAILY methocarbamol 750 mg tablet 750 mg PO Q6H PRN (Reason: pain) Qty: 30 0RF Print Language: Mongolian Instructions: Finger Sprain (ED) Referrals: Physician,Non-Staff, MD [Primary Care Provider] - 1 week
[2023-08-15] MEDS: ACETAMINOPHEN 325 MG TABLET 650 MG PO (13:26)
[2023-08-15 13:27] VITALS: PULSE 78; O2SAT 96
== END 2023-08-15 13:28 | disposition home or self-care (01) ==
PROVIDERS: Emergency Provider Emergency Medicine
DX: S63.601A Unspecified sprain of right thumb, initial encounter (principal); W18.40XA Slipping, tripping and stumbling without falling, unspecified, initial encounter; F17.210 Nicotine dependence, cigarettes, uncomplicated
CPT/HCPCS: 73130; 99283

== ENCOUNTER 2023-09-04 15:19 | Emergency (ER) | payer BC, OTHER, SELFPAY ==
[2023-09-04 15:29] VITALS: BP 105/63; PULSE 90; TEMP 36.7; O2SAT 99; BMI 44.9
--- NOTE | 2023-09-04 16:08 | ED.GENADUL1 ---
HPI HPI - General Adult General Chief complaint: Back Pain/Injury Stated complaint: Back Pain Post Surgical Time Seen by Provider: 09/04/23 15:38 Mode of arrival: walk-in History of Present Illness HPI narrative: Patient presents ED complaining of low back pain. She has a known herniated disc between L4-L5. She is scheduled for spinal stimulator in 2 weeks. She sees someone in the system in [place]. 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 She thinks this flared up her back pain. She has no new neurological deficits, no numbness or tingling that is new, no loss of bowel or bladder habit or urinary retention. She does have some tingling into her legs bilaterally but this is completely normal for her per patient. She ambulated into ED. No fevers no abdominal pain alert and oriented resting comfortably in the bed in no acute distress Related Data Home Medications ?Medication ?Instructions ?Recorded ?Confirmed fluoxetine 60 mg tablet 60 mg PO DAILY 07/16/23 08/12/23 Previous Rx's ?Medication ?Instructions ?Recorded methocarbamol 750 mg tablet 750 mg PO Q6H PRN pain #30 tabs 07/16/23 oxycodone 5 mg capsule 5 mg PO Q6H PRN pain #10 caps 09/04/23 Allergies Allergy/AdvReac Type Severity Reaction Status Date / Time hydrocodone Allergy Verified 08/15/23 11:38 ketorolac [From Toradol] Allergy Verified 08/15/23 11:38 Penicillins Allergy Verified 08/15/23 11:38 nabumet Allergy Mild Uncoded 08/15/23 11:38 nabumetone Allergy Mild Uncoded 08/15/23 11:38 Opioid HPI Opioid Management Most Recent Opioid Data: Last Pain Scale 7 09/04/23 15:37 Last ED Pain Assessment 09/04/23 15:37 Review of Systems ROS Status of ROS 10 or more systems reviewed and unremarkable except as noted in history and below PFSH PFS Surgical History (Updated 09/04/23 @ 15:39 by Michelle Marie) History of spinal surgery ?Z98.890 - Other specified postprocedural states (ICD-10) Social History Smoking status: Current every day smoker Exam Narrative Exam Narrative: General: alert, no acute distress Cardiovascular: regular rate and rhythm, normal peripheral perfusion. Respiratory: Lungs CTA, respirations non labored. Extremities: no deformity, no trauma. Generalized lumbar back pain. Sutures in place from spinal stimulator trial, no signs of cellulitis Neurological: oriented x 4, LOC appropriate for age. Constitutional Vital Signs, click to edit/add: Last Vital Signs Temp 98.1 F 09/04/23 15:29 Pulse 90 09/04/23 15:29 Resp 18 09/04/23 15:29 BP 105/63 09/04/23 15:29 Pulse Ox 99 09/04/23 15:29 O2 Del Method Room Air 09/04/23 15:29 Course Vital Signs Vital signs: Vital Signs Temperature 98.1 F 09/04/23 15:29 Pulse Rate 90 09/04/23 15:29 Respiratory Rate 18 09/04/23 15:29 Blood Pressure 105/63 09/04/23 15:29 Pulse Oximetry 99 09/04/23 15:29 Oxygen Delivery Method Room Air 09/04/23 15:29 Temperature 98.1 F 09/04/23 15:29 Pulse Rate 90 09/04/23 15:29 Respiratory Rate 18 09/04/23 15:29 Blood Pressure 105/63 09/04/23 15:29 Pulse Oximetry 99 09/04/23 15:29 Oxygen Delivery Method Room Air 09/04/23 15:29 Medical Decision Making [facility] Narrative Medical decision making narrative: Patient states she usually gets an injection for pain here and goes home with steroids to hold her over until she sees her doctor. She was given IM Dilaudid here and will be sent home with steroids and oxycodone. She states she has liver problems and cannot take regular Percocet but can have the plain oxycodone. Return to ER If anything worsens or changes that is concerning. Patient expresses understanding and is comfortable care plan for home Differential Diagnosis Differential Diagnosis: Lumbar disc disease, radicular symptoms, cauda equina, cellulitis, Medical Records Medical records reviewed: Yes I reviewed the patient's medical records Discharge Plan Discharge Stand Alone Forms: Portal Instructions Chief Complaint: Back Pain/Injury Clinical Impression: Lumbar radiculopathy Patient Disposition: Home, Self-Care Time of Disposition Decision: 16:10 Condition: Good Mode of Transportation: Private Vehicle Prescriptions / Home Meds: New oxycodone 5 mg capsule 5 mg PO Q6H PRN (Reason: pain) Qty: 10 0RF No Action fluoxetine 60 mg tablet 60 mg PO DAILY methocarbamol 750 mg tablet 750 mg PO Q6H PRN (Reason: pain) Qty: 30 0RF Print Language: Citizen [place] Instructions: Acute Low Back Pain (ED) Referrals: Physician,Non-Staff, MD [Primary Care Provider] - 1 week
[2023-09-04] MEDS: HYDROMORPHONE HCL 1 MG/ML CARTRIDGE IM (16:13)
== END 2023-09-04 16:22 | disposition home or self-care (01) ==
PROVIDERS: Emergency Provider Emergency Medicine
DX: M51.16 Intervertebral disc disorders with radiculopathy, lumbar region (principal); F17.200 Nicotine dependence, unspecified, uncomplicated
CPT/HCPCS: 96372; 99284; J1170

== ENCOUNTER 2023-09-13 16:16 | Emergency (ER) | payer BC, OTHER, SELFPAY ==
[2023-09-13 16:23] VITALS: BP 152/88; PULSE 92; TEMP 36.7; O2SAT 97; BMI 42.9
--- NOTE | 2023-09-13 16:36 | ED.BACK1 ---
HPI HPI - Back Pain/Injury General Chief Complaint: Back Pain/Injury Stated Complaint: SEVERE BACK PAIN Time Seen by Provider: 09/13/23 16:18 Source: patient Mode of arrival: walk-in Limitations: no limitations History of Present Illness HPI Narrative: 48-year-old female presents for lower back pain. She has an ongoing issue with her back and has had extensive evaluation including the recent MRI. She states that she is scheduled to have a nerve stimulator placed on September 22 at [facility]. She has had no new injury and the pain does not radiate. The pain is moderate and continuous and worse in certain positions. Related Data Home Medications ?Medication ?Instructions ?Recorded ?Confirmed fluoxetine 60 mg tablet 60 mg PO DAILY 07/16/23 09/13/23 cyclobenzaprine 10 mg tablet mg 09/13/23 ibuprofen 800 mg tablet mg 09/13/23 Previous Rx's ?Medication ?Instructions ?Recorded methocarbamol 750 mg tablet 750 mg PO Q6H PRN pain #30 tabs 07/16/23 methylprednisolone 4 mg tablets in 4 mg PO DAILY #21 ea 09/04/23 a dose pack (Medrol (Ian)) oxycodone 5 mg capsule 5 mg PO Q6H PRN pain #10 caps 09/04/23 oxycodone 5 mg tablet 5 mg PO Q8H PRN pain 3 days #10 09/13/23 tabs Allergies Allergy/AdvReac Type Severity Reaction Status Date / Time nabumetone Allergy Mild Verified 09/13/23 16:25 hydrocodone Allergy Verified 09/13/23 16:22 ketorolac [From Toradol] Allergy Verified 09/13/23 16:22 Penicillins Allergy Verified 09/13/23 16:22 Opioid HPI Opioid Management Most Recent Opioid Data: Last Pain Scale 9 09/04/23 16:13 Review of Systems ROS Narrative A ten point review of systems is negative except as noted above. PFSH PFSH Surgical History (Updated 09/04/23 @ 15:39 by Michelle Marie) History of spinal surgery ?Z98.890 - Other specified postprocedural states (ICD-10) Social History Smoking status: Current every day smoker Exam Narrative Exam Narrative: Nurses note and vital signs reviewed and patient is not hypoxic. General: The patient appears well and in no apparent distress. Patient is resting comfortably on cart. Skin: Warm, dry, no pallor noted. There is no rash noted. Head: Normocephalic, atraumatic Eye: Normal conjunctiva, no drainage Ears, Nose, Mouth, and Throat: oral mucosa is moist. Nares patent. Cardiovascular: Regular Rate and Rhythm Respiratory: Patient is in no distress, no accessory muscle use, lungs are clear to auscultation, no wheezing, rales or rhonchi Back: non-tender, no bruise or rash GI: Soft and nontender Musculoskeletal: The patient has no evidence of calf tenderness, no pitting edema, symmetrical pulses noted bilaterally Neurological: Awake and alert Psychiatric: Cooperative Constitutional Vital Signs, click to edit/add: Last Vital Signs Temp 98.1 F 09/13/23 16:23 Pulse 92 H 09/13/23 16:23 Resp 16 09/13/23 16:23 BP 152/88 H 09/13/23 16:23 Pulse Ox 97 09/13/23 16:23 O2 Del Method Room Air 09/13/23 16:23 Course Vital Signs Vital signs: Vital Signs Temperature 98.1 F 09/13/23 16:23 Pulse Rate 92 H 09/13/23 16:23 Respiratory Rate 16 09/13/23 16:23 Blood Pressure 152/88 H 09/13/23 16:23 Pulse Oximetry 97 09/13/23 16:23 Oxygen Delivery Method Room Air 09/13/23 16:23 Temperature 98.1 F 09/13/23 16:23 Pulse Rate 92 H 09/13/23 16:23 Respiratory Rate 16 09/13/23 16:23 Blood Pressure 152/88 H 09/13/23 16:23 Pulse Oximetry 97 09/13/23 16:23 Oxygen Delivery Method Room Air 09/13/23 16:23 MDM - Back Pain/Injury MDM Narrative Medical decision making narrative: She was given IM Norflex and prescribed 10 oxycodone tablets. Treatment diagnosis and follow-up were discussed with the patient. Differential Diagnosis Differential diagnosis: Likely other (Chronic pain, degenerative disc disease, muscle strain) Discharge Plan Discharge Stand Alone Forms: Portal Instructions Chief Complaint: Back Pain/Injury Clinical Impression: Acute exacerbation of chronic low back pain Patient Disposition: Home, Self-Care Time of Disposition Decision: 16:33 Condition: Good Mode of Transportation: Private Vehicle Prescriptions / Home Meds: New oxycodone 5 mg tablet 5 mg PO Q8H PRN (Reason: pain) 3 Days Qty: 10 0RF No Action cyclobenzaprine 10 mg tablet ibuprofen 800 mg tablet fluoxetine 60 mg tablet 60 mg PO DAILY methocarbamol 750 mg tablet 750 mg PO Q6H PRN (Reason: pain) Qty: 30 0RF oxycodone 5 mg capsule 5 mg PO Q6H PRN (Reason: pain) Qty: 10 0RF methylprednisolone [Medrol (Ian)] 4 mg tablets,dose pack 4 mg PO DAILY Qty: 21 0RF Print Language: Persian Instructions: Chronic Pain (ED) Referrals: Physician,Non-Staff, MD [Primary Care Provider] - 1 week
[2023-09-13] MEDS: ORPHENADRINE 60 MG/ 2 ML VIAL IM (16:40)
== END 2023-09-13 16:46 | disposition home or self-care (01) ==
PROVIDERS: Emergency Provider Emergency Medicine
DX: M54.50 Low back pain, unspecified (principal); G89.29 Other chronic pain; F17.200 Nicotine dependence, unspecified, uncomplicated
CPT/HCPCS: 96372; 99284; J2360

== ENCOUNTER 2023-09-21 14:50 | Emergency (ER) | payer BC, OTHER, SELFPAY ==
[2023-09-21 14:54] VITALS: PULSE 83; TEMP 36.8; O2SAT 98; BMI 44.3
[2023-09-21 14:57] VITALS: BP 170/100
--- OUTSIDE RECORDS SUMMARY | 2023-09-21 15:02 | XMS_ITS ---
Patient Summarization (C-CDA 2.1 CCD) Created on: September 21, 2023 JERAD TRACY Seng : 1975 Sex: Female Author Organization Sample organization Care Team Providers Care Neonatal Specialist Name Role Phone ROSHAN ESCOBEDO Seng Primary Care Physician Jd Malone Unavailable Avery Goodman Unavailable [facility] Primary Care Provider DO Vlad Martinez Emergency Provider [phone] MORGAN Romero Attending Provider [phone] DO José Miguel Mcnamara Emergency Provider GINGER Bennett Emergency Provider ELIZABETH Veliz Attending Provider DO Berto Villasenor Emergency Provider [facility] Primary Care Provider [phone] FAROOQ, DR MASTERSON Primary Care Unavailable JUAN TRUONG Admitting Unavailable JUAN TRUONG Attending Unavailable MIKE, DR PROMISE Lopez Consulting Unavailable JUAN TRUONG Consulting Unavailable ALMAS GRULLON Admitting Unavailable ALMAS GRULLON Attending Unavailable FAROOQ, DR MASTERSON Primary Care Unavailable JOON MOSLEY Consulting Unavailable LEILANI SOLOMON Consulting Unavailable [facility], Services Primary Care Provider GINGER Lamar Emergency Provider [facility] Services Primary Care Provider DO Berto Villasenor Emergency Provider [phone] ELIZABETH Veliz Attending Provider GINGER Lamar Emergency Provider DO Dalton Ceja Emergency Provider [phone] [facility] Primary Care Provider DO Cameron Rene Emergency Provider Unavai [facility] Primary Care Provider DO Berto Villasenor Emergency Provider MD Jorge Dan Emergency Provider Keke Skaggs Unavailable [facility] Primary Care Provider MD Jorge Dan Emergency Provider MD Keke Skaggs Attending Provider [phone] [facility] Mary Beth E Emergency Provider [facility] Primary Care Provider GINGER Bennett Emergency Provider [phone] Rose Marie Shepherd Unavailable ELIZABETH Veliz Attending Provider ELIZABETH Ferrell Emergency Provider MD Rena Belcher Emergency Provider Glen Garza Unavailable NONE, XXXX Primary Care Physician Unavailab MD Jorge Samuel Emergency Provider [facility] Primary Care Provider [phone] [facility] E Emergency Provider [phone] MD Joe Meza Attending Provider ELZBIETA Shepherd Attending Provider MD Glen Garza Attending Provider DO Vlad Martinez Emergency Provider ELIZABETH Carmichael Emergency Provider [phone] GINGER Dowd Emergency Provider [phone] MD Avery Berger Jr Emergency Provider [facility] Primary Care Provider GINGER Bennett Emergency Provider MD RASHAD RAMACHANDRAN Attending Unavaila [facility] Primary Care Provider [place], [facility] DELIV[facility] CLERK[facility] Mary Beth E Emergency Provider [facility], Services Primary Care Provider ELIZABETH Ferrell Emergency Provider [phone] [facility] Services Primary Care Provider [place], [facility] CL[facility] Mary Beth E Emergency Provider NO FAMILY, PHYSICIAN Primary Care Provider Unava alvaro Bermeo MD, [facility] Primary Care Provider [phone] [facility] Services Primary Care Provider ELIZABETH Ferrell Emergency Provider ELZBIETA Shepherd Attending Provider [facility] Primary Care Provider [place], [facility]IV[facility] Mary Beth E Emergency Provider MD Glen Garza Attending Provider [phone] [facility] Primary Care Provider GINGER Bennett Emergency Provider DO Vlad Martinez Emergency Provider [phone] [facility] Primary Care Provider [phone] ELIZABETH Ferrell Emergency Provider GINGER Bennett Emergency Provider ELIZABETH Veliz Primary Care Provider [phone] [facility] Services Primary Care Provider [phone] Joe Meza Unavailable [facility] Services Primary Care Provider [phone] [place], [facility] Mary Beth E Emergency Provider [phone] NON STAFF Primary Care Provider ELIZABETH Valentin Emergency Provider Antonio Husain PA-C Primary Care Provider [facility] Primary Care Provider [place], [facility] ON DELIVERY CLERK-BC Mary Beth E Emergency Provider ELIZABETH Ferrell Emergency Provider [phone] [facility] Primary Care Provider ELZBIETA Shepherd Attending Provider DO Vlad Martinez Emergency Provider [place], [facility] ON DELIVERY CLERK-BC Mary Beth E Emergency Provider ELIZABETH Ferrell Emergency Provider GINGER Bennett Emergency Provider [phone] MD Glen Garza Attending Provider NO FAMILY, PHYSICIAN Primary Care Provider Unava ilable ELIZABETH Veliz Primary Care Provider NON STAFF Primary Care Provider ELIZABETH Valentin Emergency Provider [facility] Primary Care Provider ELZBIETA Shepherd Attending Provider DO Vlad Martinez Emergency Provider [facility] Primary Care Provider [phone] ELIZABETH Ferrell Emergency Provider [phone] [place], [facility] Mary Beth E Emergency Provider ELZBIETA Shepherd Attending Provider DO Vlad Martinez Emergency Provider NO FAMILY, PHYSICIAN Primary Care Provider Unava ilable [place], [facility] DELIV[employer] [facility]ERK-[facility] Mary Beth E Emergency Provider MD Glen Garza Attending Provider ELIZABETH Ferrell Emergency Provider ANTONIO HUSAIN Primary Care Physician [phone] ELIZABETH Veliz Primary Care Provider [phone] ELIZABETH Ferrell Emergency Provider [place], [facility] DELIVERY CLERK-[facility] Mary Beth E Emergency Provider NO FAMILY, PHYSICIAN Primary Care Provider Unava ilable NON STAFF Primary Care Provider Unavailabl e Mariaelena 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 Joshua Emergency Provider [phone] [place], [facility] Mary Beth E Emergency Provider [phone] [facility] Primary Care Provider NO FAMILY, PHYSICIAN Primary Care Provider Unava ilable ELIZABETH Huerta Kati A Emergency Provider ELIZABETH Ferrell Emergency Provider Cheyanne Rosas Primary Care Physician [phone] NO FAMILY, PHYSICIAN Primary Care Provider Unava ilable [place], [facility]- Mary Beth E Emergency Provider ELIZABETH Huerta Kati A Emergency Provider ELIZABETH Giraldo Emergency Provider Slime Sherwood DO Primary Care Provider ELIZABETH Ferrell Emergency Provider [facility] Primary Care Provider ELIZABETH Huerta Kati A Emergency Provider ELIZABETH Giraldo Emergency Provider ELIZABETH Carmichael Emergency Provider DO Vlad Martinez Emergency Provider [phone] [facility] Primary Care Provider ELIZABETH Ferrell Emergency Provider [place], [facility] Mary Beth E Emergency Provider [phone] ANTONIO HUSAIN Attending Unavailable ANTONIO HUSAIN Primary Care Unavailable JORI CAM Attending Unavailable ANTONIO HUSAIN Primary Care Unavailable BELKIS HERNANDEZ Attending Unavailable ANTONIO HUSAIN Primary Care Unavailable BELKIS HERNANDEZ Referring Unavailable ANTONIO HUSAIN Primary Care Unavailable DECLAN LEYVA Attending Unavailable SLIME SHERWOOD Primary Care Unavailable KEKE PAYNE Attending Unavailable ALLYSON GRIFFITHS Attending Unavailable SAL MENA Attending Unavailable ALLYSON GRIFFITHS Attending Unavailable Garry MILES, Dory Garcia Attending Unavaila ble Unavailable, Physician Primary Care Unavailab loretta Linder APRN-MARINA, Daysi Muñoz Attending Unavailable Generic Provider , No Assigned Pcp Primary Car e Provider Unavailable Cheyanne Mckeon Primary Care Unavailable Kathy, Peter S Admitting Unavailab ePter Michel S Attending Unavailab [facility], Services Primary Care Provider ELIZABETH Carmichael Emergency Provider [phone] Vlad Martinez Admitting Unavailable Vlad Martinez Attending Unavailable [facility], Services Primary Care Unavaila ble Laurita Giraldo Admitting Unavailable Laurita Giraldo Attending Unavailable [facility], Services Primary Care Unavaila ble Mariaelena, Joshua Attending Unavailable [facility], Services Primary Care Unavaila ble Mariaelena, Joshua Admitting Unavailable [place], Mary Beth E Attending Unavailable [place], Mary Beth E Admitting Unavailable [facility], Services Primary Care Unavaila ble [facility], Services Primary Care Unavaila ble Kayla, Glen S Admitting Unavailable Kayla, Glen S Attending Unavailable [place], Mary Beth E Admitting Unavailable [place], Mary Beth E Attending Unavailable NO FAMILY, PHYSICIAN Primary Care Unavailable Rose Marie Shepherd Admitting Unavailable Rose Marie Shepherd Attending Unavailable [facility], Services Primary Care Unavaila ble Mariaelena, Joshua Admitting Unavailable Mariaelena, Joshua Attending Unavailable NO FAMILY, PHYSICIAN Primary Care Unavailable [place], Mary Beth E Admitting Unavailable [place], Mary Beth E Attending Unavailable NO FAMILY, PHYSICIAN Primary Care Unavailable Mariaelena, Joshua Admitting Unavailable Mariaelena, Joshua Attending Unavailable NO FAMILY, PHYSICIAN Primary Care Unavailable [place], Mary Beth E Admitting Unavailable [place], Mary Beth E Attending Unavailable NO FAMILY, PHYSICIAN Primary Care Unavailable Kati Huerta Attending Unavailable Kati Huerta Admitting Unavailable NO FAMILY, PHYSICIAN Primary Care Unavailable [place], Mary Beth E Admitting Unavailable [place], Mary Beth E Attending Unavailable NO FAMILY, PHYSICIAN Primary Care Unavailable Mariaelena, Joshua Attending Unavailable Mariaelena, Joshua Admitting Unavailable NO FAMILY, PHYSICIAN Primary Care Unavailable [place], Mary Beth E Admitting Unavailable [place], Mary Beth E Attending Unavailable NO FAMILY, PHYSICIAN Primary Care Unavailable Mariaelena, Joshua Admitting Unavailable Mariaelena, Joshua Attending Unavailable [facility] Primary Care Unavaila ble Mariaelena, Joshua Admitting Unavailable Mariaelena, Joshua Attending Unavailable [facility] Primary Care Unavaila ble [place], Mary Beth E Admitting Unavailable [facility] Primary Care Unavaila ble [place], Mary Beth E Attending Unavailable Mariaelena, Joshua Attending Unavailable Mariaelena, Joshua Admitting Unavailable NO FAMILY, PHYSICIAN Primary Care Unavailable Kiepert, Kati A Attending Unavailable Kiepert, Kati A Admitting Unavailable NO FAMILY, PHYSICIAN Primary Care Unavailable Mariaelena, Joshua Attending Unavailable Mariaelena, Joshua Admitting Unavailable NO FAMILY, PHYSICIAN Primary Care Unavailable NON STAFF Primary Care Unavailable Kiepert, Kati A Attending Unavailable Kiepert, Kati A Admitting Unavailable [place], Mary Beth E Attending Unavailable Estelle Veliz Mayra Primary Care Unavailable [place], Mary Beth E Admitting Unavailable Mariaelena, Joshua Attending Unavailable Mariaelena, Joshua Admitting Unavailable Veliz [facility] Primary Care Unavailable [place], Mary Beth E Attending Unavailable Veliz [facility] Primary Care Unavailable [place], Mary Beth E Admitting Unavailable [place], Mary Beth E Attending Unavailable [place], Mary Beth E Admitting Unavailable NO FAMILY, PHYSICIAN Primary Care Unavailable [place], Mary Beth E Attending Unavailable [place], Mary Beth E Admitting Unavailable [facility] Primary Care Unavaila ble Saffle, Deb N Admitting Unavailable Saffle, Deb N Attending Unavailable [facility] Primary Care Unavaila ble Mariaelena, Joshua Admitting Unavailable [facility] Primary Care Unavaila ble Mariaelena, Joshua Attending Unavailable Mariaelena, Joshua Attending Unavailable Mariaelena, Joshua Admitting Unavailable [facility] Primary Care Unavaila ble [facility] Primary Care Unavaila ble Narciso Bennett Attending Unavailable Narciso Bennett Admitting Unavailable [place], Mary Beth E Admitting Unavailable [place], Mary Beth E Attending Unavailable [facility] Primary Care Unavaila ble Saffle, Deb N Attending Unavailable [facility] Primary Care Unavaila ble Saffle, Deb N Admitting Unavailable [place], Mary Beth E Admitting Unavailable [facility] Primary Care Unavaila ble [place], Mary Beth E Attending Unavailable [facility] Primary Care Unavaila ble Rose Marie Shepherd Attending Unavailable Rose Marie Shepherd Admitting Unavailable [facility] Primary Care Unavaila ble Rose Marie Shepherd Admitting Unavailable Rose Marie Shepherd Attending Unavailable Estelle Veliz Primary Care Unavailable Rose Marie Shepherd Attending Unavailable Rose Marie Shepherd Admitting Unavailable Kayla, Glen S Admitting Unavailable Kayla, Glen S Attending Unavailable NO FAMILY, PHYSICIAN Primary Care Unavailable Sam Dowd Admitting Unavailable Sam Dowd Attending Unavailable [facility] Primary Care Unavaila ble Narciso Bennett Admitting Unavailable Narciso Bennett Attending Unavailable [facility] Primary Care Unavaila ble Mariaelena, Joshua Admitting Unavailable Mariaelena, Joshua Attending Unavailable [facility] Primary Care Unavaila ble Mariaelena, Joshua Admitting Unavailable [facility] Primary Care Unavaila ble Mariaelena, Joshua Attending Unavailable [facility] Primary Care Unavaila ble Kayla, Glen S Admitting Unavailable Kayla, Glen S Attending Unavailable Avery Berger Jr Admitting Unavailable Avery Berger Jr Attending Unavailable [facility] Primary Care Unavaila ble Elisabet, Vlad M Admitting Unavailable Vlad Martinez M Attending Unavailable [facility] Primary Care Unavaila ble Mariaelena, Joshua Admitting Unavailable Mariaelena, Joshua Attending Unavailable NO FAMILY, PHYSICIAN Primary Care Unavailable Mariaelena, Joshua Admitting Unavailable [facility] Primary Care Unavaila ble Mariaelena, Joshua Attending Unavailable Vlad Martinez M Attending Unavailable Vlad Martinez M Admitting Unavailable [facility] Primary Care Unavaila ble Vlad Martinez M Admitting Unavailable NON STAFF Primary Care Unavailable Vlad Martinez M Attending Unavailable [facility] Primary Care Unavaila ble Terrenceeperkim, Kati A Attending Unavailable Deanna Kati A Admitting Unavailable Vlad Martinez M Attending Unavailable [facility] Primary Care Unavaila ble Tupa, Vlad M Admitting Unavailable MariaelenaJoshua shultz Attending Unavailable Mariaelena, Joshua Admitting Unavailable NO FAMILY, PHYSICIAN Primary Care Unavailable Deb Carmichael Attending Unavailable Deb Carmichael Admitting Unavailable [facility] Primary Care Unavaila ble [facility] Primary Care Unavaila ble Narciso Bennett Admitting Unavailable Narciso Bennett Attending Unavailable Mariaelena, Joshua Attending Unavailable Mariaelena, Joshua Admitting Unavailable NO FAMILY, PHYSICIAN Primary Care Unavailable [place], Mary Beth E Admitting Unavailable [facility] Primary Care Unavaila ble [place], Mary Beth E Attending Unavailable Unavailable Primary Care Provider Unavailabl BENJA Gonzalez Attending Unavailable Arnaldo, Jorge Attending Unavailable Nikhil Tubbs Attending Unavailable Hajdari, Astrit H Attending Unavailable Arnaldo, Jorge Attending Unavailable Arnaldo, Jorge Attending Unavailable Hajdari, Astrit H Attending Unavailable Nikhil Tubbs Attending Unavailable Hajdari, Astrit H Attending Unavailable Hajdari, Astrit H Attending Unavailable Arnaldo, Jorge Attending Unavailable Arnaldo, Jorge Attending Unavailable Dokken, DO Pérez A Attending Unavailable Nikhil Tubbs Attending Unavailable Arnaldo, Jorge Attending Unavailable Hajdari, Astrit H Attending Unavailable Nikhil Tubbs Attending Unavailable Hajdari, Astrit H Attending Unavailable Chance, Pedro Pablo S. Attending Unavailable Chance, Pedro Pablo S. Attending Unavailable Dokkhudson, DO Pérez A Attending Unavailable Ashia Ruiz Attending Unavailable Ashia Ruiz Attending Unavailable Dax Lira Attending Unavailable Dokken, DO Pérez A Attending Unavailable Nikhil Tubbs Attending Unavailable NONE, XXXX Referring Unavailable Dory Shepherd Attending Unavailable GINGER Shepherd Admitting Unavailabl Domenic Brownlee Attending Unavailable DO Domenic Sher Admitting Unavailabl e Cheyanne Rosas Referring Unavailable Arnaldo, Jorge Attending Unavailable Arnaldo, Jorge Attending Unavailable Hajdari, Astrit H Attending Unavailable Cheyanne Rosas Attending Unavailable Chance, Pedro Pablo S. Attending Unavailable Chance, Pedro Pablo S. Attending Unavailable Nikhil Tubbs Attending Unavailable FARASherron Attending Unavailable FARASherron PAGE Attending Unavailable Nikhil Tubbs Attending Unavailable Hajdari, Astrit H Attending Unavailable Chance, Pedro Pablo S. Attending Unavailable Dokken, Kaylinn A Attending Unavailable Nikhil Tubbs Attending Unavailable Nikhil Tubbs Attending Unavailable Nikhil Tubbs Attending Unavailable Arnaldo, Jorge Attending Unavailable Hajdari, Astrit H Attending Unavailable Arnaldo, Jorge Attending Unavailable Chance, Pedro Pablo S. Attending Unavailable Hajdari, Astrit H Attending Unavailable Dokken, Kaylinn A Attending Unavailable Hajdari, Astrit H Attending Unavailable DokkDO Bebeto treviñoylvera A Attending Unavailable Nikhil Tubbs Attending Unavailable Hajdari, Astrit H Attending Unavailable Nikhil Tubbs. Attending Unavailable Hajdari, Astrit H Attending Unavailable DokkenDO Kaylinn A Attending Unavailable Nikhil Tubbs Attending Unavailable Hajdari, Astrit H Attending Unavailable Jorge Mcintosh Attending Unavailable Nikhil Tubbs Attending Unavailable Nikhil Tubbs. Attending Unavailable Jorge Mcintosh Attending Unavailable Nikhil Tubbs Attending Unavailable Pedro Pablo Fletcher Attending Unavailable Chandana Varela Attending Unavailable GHOLAM, CHIDI M Referring Unavailable NEWBILL, ANTONIO M Primary Care Unavailable SWEET, ELKE A Attending Unavailable NEWBILL, ANTONIO M Referring Unavailable NEWBILL, ANTONIO M Primary Care Unavailable OBERHAUSER, SLIME L Primary Care Unavailable SWEET, ELKE A Admitting Unavailable SWEET, ELKE A Attending Unavailable GENERIC PROVIDER, NO ASSIGNED PCP Primary Care Unavailable OBERHAUSER, SLIME L Primary Care Unavailable SWEET, ELKE A Referring Unavailable GENERIC PROVIDER, NO ASSIGNED PCP Primary Care Unavailable NEWBILL, ANTONIO M Primary Care Unavailable GHOLAM, CHIDI M Attending Unavailable VELA, EFE Referring Unavailable NEWBILL, ANTONIO M Primary Care Unavailable NEWBILL, ANTONIO M Primary Care Unavailable CHIRAG OVIEDO Attending Unavailab le GENERIC PROVIDER, NO ASSIGNED PCP Primary Care Unavailable SWEET, ELKE A Admitting Unavailable SWEET, ELKE A Attending Unavailable GENERIC PROVIDER, NO ASSIGNED PCP Primary Care Unavailable GENERIC PROVIDER, NO ASSIGNED PCP Primary Care Unavailable NEWBILL, ANTONIO M Primary Care Unavailable GENERIC PROVIDER, NO ASSIGNED PCP Primary Care Unavailable NEWBILL, ANTONIO M Referring Unavailable NEWBILL, ANTONIO M Primary Care Unavailable GENERIC PROVIDER, NO ASSIGNED PCP Primary Care Unavailable GENERIC PROVIDER, NO ASSIGNED PCP Primary Care Unavailable Allergies Allergy Classification Reported Allergen(s) Allergy Type Date of Onset Reaction(s) Facility Acetaminophen / HYDROcodone (4 sources) Acetaminophen / HYDROcodone; Translations: [acetaminophen-hy drocodone] Drug Allergy 3 Hives [facility] NSAIDs (4 sources) nabumetone; Translations: [nabumetone] Drug Allergy 3 Nausea/vomitin g, Rash [facility] Opioid Agonists (1 source) HYDROcodone Drug Allergy 3 Hives, Unknown [facility] Work Phone: Penicillins (antibiotic) (4 sources) Penicillin; Translations: [penicillin] Drug Allergy 3 Hives, Unknown [facility] (20 sources) Acetaminophen / HYDROcodone; Translations: [Acetaminophen / Hydrocodone] Drug Allergy Unknown, Hives [facility] (20 sources) Diclofenac Drug Allergy 4 Unknown, Hives [facility] (20 sources) HYDROcodone; Translations: [Hydrocodone] Drug Allergy 4 Hives, Unknown, Rash [facility] (20 sources) Penicillins; Translations: [PENICILLINS] Propensity to adverse reactions 2 Hives, Unknown [facility] (20 sources) Penicillin; Translations: [penicillin] Drug Allergy 2 Unknown, Hives [facility] (19 sources) Acetaminophen; Translations: [acetaminophen] Drug Allergy 2 Abdominal Pain, Hives, Unknown Reaction [facility] (20 sources) nabumetone; Translations: [nabumetone] Drug Allergy 3 Nausea/vomitin g, Rash [facility] (17 sources) Acetaminophen / HYDROcodone; Translations: [HYDROCODONE-ACET AMINOPHEN] Drug Allergy 3 [facility] (16 sources) Penicillin G; Translations: [PENICILLIN G] Drug Allergy [address] [facility] (1 source) Diclofenac Drug Allergy 4 [facility] Encounters Encounter Date Encounter Type Care Provider Facility Start: 09-20-2023 End: 09-20-2023 Emergency department patient visit Jorge Mcintosh [facility] Start: 09-19-2023 End: 09-19-2023 Emergency department patient visit NO ASSIGNED PCP GENERIC PROVIDER [facility] Start: 09-18-2023 ambulatory ELKE ADAMS [facility] Start: 09-17-2023 End: 09-17-2023 ambulatory Dax Lira Facility:[facility] [place] Start: 09-17-2023 End: 09-17-2023 Patient encounter procedure Dax Lira [facility] Start: 09-16-2023 End: 09-16-2023 Emergency department patient visit NO ASSIGNED PCP GENERIC PROVIDER [facility] Start: 09-16-2023 ambulatory NO ASSIGNED PC P GENERIC PROVIDER [facility] Start: 09-11-2023 End: 09-11-2023 ambulatory Ashia Ruiz Facility[facility] Start: 09-11-2023 End: 09-11-2023 Patient encounter procedure Ashia Ruiz [facility] Start: 09-10-2023 End: 09-10-2023 Emergency department patient visit Benja Radha SLATER Work Phone: [facility] Comment on above: Strain of lumbar reg ion, initial encounter (Primary Dx) Start: 09-09-2023 End: 09-09-2023 Emergency department patient visit Jorge Mcintosh [facility] Start: 09-08-2023 End: 09-08-2023 Emergency department patient visit Services [facility] Work Phone: [facility] Work Phone: Start: 09-06-2023 End: 09-06-2023 Emergency department patient visit Pedro Pablo Fletcher [facility] Start: 09-02-2023 End: 09-02-2023 Emergency department patient visit Jorge Mcintosh [facility] Start: 08-30-2023 End: 08-30-2023 Emergency department patient visit Nikhil Tubbs [facility] Start: 08-27-2023 End: 08-27-2023 ambulatory CHIRAG OVIEDO [facility] Start: 08-27-2023 End: 08-27-2023 Postop follow up visit related to original px Chirag Oviedo 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[employer] Work Phone: [facility] [place] Comment on above: Chronic back pain gr eater than 3 months duration (Primary Dx); Neuropathic pain Start: 08-21-2023 End: 08-21-2023 ambulatory ELKE ADAMS [facility] Start: 08-21-2023 End: 08-21-2023 Subsequent hospital visit by physician Elke Adams MD Work Phone: [facility] [place] Comment on above: Chronic back pain gr eater than 3 months duration (Primary Dx); Neuropathic pain; Continuous opioid dependence (Multi) Start: 08-17-2023 End: 08-17-2023 Emergency department patient visit Cheyanne HORVATH Facility:[facility] Start: 08-16-2023 End: 08-16-2023 Emergency department patient visit Physician Unavailable Facility:[facility] Start: 08-15-2023 End: 08-16-2023 Emergency department patient visit Balbina Bryant [facility] Start: 08-14-2023 End: 08-14-2023 ambulatory Domenic Sher Facility:[facility] Start: 08-14-2023 End: 08-14-2023 Pain Management Domenic Sher [facility] Start: 08-12-2023 End: 08-12-2023 Emergency department patient visit Elisa Sánchez [facility] Start: 08-09-2023 End: 08-10-2023 Emergency department patient visit KEKE PAYNE [facility] Start: 08-09-2023 End: 08-09-2023 Emergency department patient visit Keke Payne MD Work Phone: [facility] Emergency [facility] Level [facility] Start: 08-07-2023 End: 08-07-2023 ambulatory Ashia Ruiz Facility:[facility] Start: 08-07-2023 End: 08-07-2023 Patient encounter procedure Ashia Ruiz [facility] Start: 08-05-2023 End: 08-05-2023 Emergency department patient visit Pedro Pablo SAdrien Fletcher [facility] Start: 08-02-2023 End: 08-02-2023 Emergency department patient visit Nikhil Tubbs [facility] Start: 08-02-2023 End: 08-02-2023 ambulatory ELKE Seng [facility] Start: 08-02-2023 End: 08-02-2023 Encounter for other preprocedural examination [facility] Start: 07-31-2023 End: 07-31-2023 Emergency department patient visit Balbina Bryant [facility] Start: 07-26-2023 End: 07-26-2023 ambulatory SLIME SHERWOOD [facility] Start: 07-26-2023 End: 07-26-2023 Emergency department patient visit Jorge Mcintosh [facility] Start: 07-20-2023 End: 07-20-2023 Emergency department patient visit Nikhil Tubbs Facility:[facility] Start: 07-17-2023 ambulatory Jorge Mcintosh Facility:[facility] Start: 07-17-2023 End: 07-17-2023 ambulatory Cheyanne Rosas Facility:[facility] Start: 07-17-2023 End: 07-17-2023 Patient encounter procedure Cheyanne Rosas [facility] Start: 07-17-2023 End: 07-17-2023 Well adult monitoring check done Cheyanne Rosas [facility] Start: 07-15-2023 End: 07-15-2023 ambulatory XXXX NONE Facility:[facility] Start: 07-15-2023 End: 07-15-2023 Pain Management Dory Joao [facility] Start: 07-14-2023 End: 07-14-2023 Emergency department patient visit Nikhil Tubbs [facility] Start: 07-11-2023 ambulatory [facility] Facility:[facility] Start: 07-11-2023 End: 07-11-2023 Emergency department patient visit Balbina Starreduard [facility] Start: 07-08-2023 End: 07-08-2023 ambulatory [facility] Start: 07-08-2023 End: 07-08-2023 Telemedicine consultation with patient Declan De La Rosa [facility] PhD Work Phone: [facility] Comment on above: 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 Start: 07-06-2023 End: 07-06-2023 Emergency department patient visit Balbina Bryant [facility] Start: 07-04-2023 End: 07-04-2023 Emergency department patient visit Services [facility] Work Phone: [facility]Emergency [facility] Work Phone: Start: 06-29-2023 End: 06-29-2023 Emergency department patient visit Nikhil Tubbs [facility] Start: 06-27-2023 End: 06-27-2023 Emergency department patient visit Nikhil Tubbs [facility] Start: 06-26-2023 End: 06-26-2023 Emergency department patient visit ELIZABETH Ferrell Work Phone: [facility]-Emergency Room Work Phone: Start: 06-24-2023 End: 06-24-2023 Emergency department patient visit [facility] Bridger Bryant [facility] Start: 06-22-2023 End: 06-22-2023 ambulatory [facility] Facility:[facility] Start: 06-22-2023 End: 06-22-2023 Emergency department patient visit Nikhil Tubbs [facility] Start: 06-22-2023 End: 06-22-2023 ambulatory [facility] Facility:[facility] Start: 06-17-2023 End: 06-17-2023 ambulatory [facility] Start: 06-15-2023 End: 06-15-2023 [facility] Start: 06-15-2023 End: 06-15-2023 Emergency department patient visit NO ASSIGNED PCP GENERIC PROVIDER [facility] Comment on above: Chronic back pain, u nspecified back location, unspecified back pain laterality (Primary Dx) Start: 06-11-2023 End: 06-11-2023 Emergency department patient visit Elisa Sánchez [facility] Start: 06-08-2023 End: 06-08-2023 Emergency department patient visit ALLYSON GRIFFITHS [facility] Start: 06-08-2023 End: 06-08-2023 Emergency department patient visit Allyson Griffiths DO Work Phone: [facility] Emergency [facility] Level [facility] Tra[facility] Start: 06-05-2023 End: 06-05-2023 ambulatory ELKE ADAMS [facility] Start: 06-05-2023 End: 06-05-2023 Office outpatient new 45 minutes Elke Adams MD Work Phone: [facility] Comment on above: Chronic back pain gr eater than 3 months duration (Primary Dx); Neuropathic pain Start: 06-03-2023 End: 06-03-2023 Emergency department patient visit Jorge Mcintosh [facility] Start: 06-01-2023 End: 06-01-2023 Emergency department patient visit 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Radha Ferrell Work Phone: [facility] Work Phone: Start: 05-31-2023 End: 05-31-2023 Emergency department patient visit Jorge Mcintosh [facility] Start: 05-26-2023 End: 05-26-2023 Emergency department patient visit Pedro Pablo Flecther [facility] Start: 05-25-2023 End: 05-25-2023 Emergency department patient visit 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Radha Ferrell Work Phone: [facility] Work Phone: Start: 05-24-2023 End: 05-24-2023 Emergency department patient visit Nikhil Tubbs [facility] Start: 05-20-2023 End: 05-21-2023 ambulatory BELKIS HERNANDEZ [facility] Amb[facility] Start: 05-20-2023 End: 05-20-2023 Office outpatient new 45 minutes Belkis Hernandez DO Work Phone: [facility] Comment on above: [facility] arthritis (Prima ry Dx); Right wrist pain Start: 05-19-2023 End: 05-19-2023 Emergency department patient visit PHYSICIAN YENNI [facility] Work Phone: Start: 05-16-2023 End: 05-16-2023 Emergency department patient visit Nikhil Tubbs [facility] Start: 05-15-2023 End: 05-15-2023 ambulatory PHYSICIAN NO [facility] Work Phone: Start: 05-15-2023 End: 05-15-2023 Patient encounter procedure PHYSICIAN NO [facility] Work Phone: Start: 05-14-2023 End: 05-14-2023 Emergency department patient visit Jorge Mcintosh [facility] Start: 05-12-2023 End: 05-12-2023 Emergency department patient visit Nikhil Tubbs [facility] Start: 05-11-2023 End: 05-11-2023 Emergency department patient visit Jorge Mcintosh [facility] Start: 05-08-2023 End: 05-08-2023 Emergency department patient visit Balbina Bryant [facility] Start: 05-05-2023 End: 05-05-2023 Emergency department patient visit PHYSICIAN NO [facility] Work Phone: Start: 05-04-2023 End: 05-04-2023 Emergency department patient visit Pedro Pablo Fletcher Facility:[facility] Start: 05-03-2023 End: 05-03-2023 Emergency department patient visit ANTONIO Nguyen [facility] Start: 04-30-2023 End: 04-30-2023 Emergency department patient visit Jorge Mcintosh Facility:[facility] Start: 04-28-2023 End: 04-28-2023 Emergency department patient visit SAL MENA [facility] Start: 04-27-2023 End: 04-28-2023 Emergency department patient visit Sal Mena MD Work Phone: [facility] Emergency [facility] Tra[facility] Start: 04-26-2023 End: 04-26-2023 Emergency department patient visit Balbina Bryant [facility] Start: 04-22-2023 End: 04-22-2023 Emergency department patient visit Pedro Pablo Fletcher [facility] Start: 04-19-2023 End: 04-19-2023 [facility] Start: 04-12-2023 End: 04-12-2023 Emergency department patient visit [facility] Work Phone: Start: 04-11-2023 End: 04-11-2023 Emergency department patient visit Balbina Bryant [facility] Start: 04-10-2023 End: 04-11-2023 Emergency department patient visit Pedro Pablo Fletcher [facility] Start: 04-08-2023 End: 04-08-2023 Emergency department patient visit Dory Castañeda PA-C Facility:[facility] Start: 04-05-2023 End: 04-05-2023 Emergency department patient visit Nikhil Tubbs [facility] Start: 04-02-2023 End: 04-02-2023 Emergency department patient visit Elisa Sánchez [facility] Start: 04-01-2023 End: 04-01-2023 Office consultation new/estab patient 60 min Chidi Yuen MD Work Phone: [facility] Comment on above: Continuous opioid de pendence (CMS/HCC) (Primary Dx); Chronic hepatitis C without hepatic coma (CMS/HCC) Start: 04-01-2023 End: 04-01-2023 ambulatory ANTONIO Wendy [facility] Start: 03-29-2023 End: 03-29-2023 Emergency department patient visit 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 Estelle Veliz Work Phone: [facility] Work Phone: Start: 03-26-2023 End: 03-26-2023 Emergency department patient visit Jorge Mcintosh [facility] Start: 2023 End: 2023 Emergency department patient visit 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 Estelle Veliz Work Phone: [facility] Work Phone: Start: 03-23-2023 End: 03-23-2023 Emergency department patient visit Nikhil Tubbs [facility] Start: 03-20-2023 End: 03-20-2023 Emergency department patient visit Elisa Sánchez [facility] Start: 03-11-2023 End: 03-11-2023 Emergency department patient visit Balbina Bryant [facility] Start: 03-09-2023 End: 03-09-2023 Emergency department patient visit PHYSICIAN YENNI BLAIR [facility] Work Phone: Start: 02-22-2023 ambulatory Jorge Mcintosh Facility:[facility] Start: 02-21-2023 End: 02-21-2023 Emergency department patient visit [facility] Work Phone: [facility] Work Phone: Start: 02-13-2023 End: 02-13-2023 Subsequent hospital visit by physician Dre Farmer [facility] Comment on above: Chronic hepatitis C without hepatic coma (CMS/HCC) Start: 02-13-2023 End: 02-13-2023 ambulatory ANTONIO Nguyen [facility] Start: 02-12-2023 End: 02-12-2023 Emergency department patient visit Pedro Pablo Fletcher [facility] Start: 02-08-2023 End: 02-08-2023 Emergency department patient visit [facility] Work Phone: [facility] Work Phone: Start: 02-07-2023 End: 02-07-2023 Emergency department patient visit Elisa Sánchez [facility] Start: 02-04-2023 End: 02-04-2023 Emergency department patient visit [facility] Work Phone: [facility] Work Phone: Start: 02-02-2023 End: 02-02-2023 Emergency department patient visit [facility] Work Phone: [facility] Work Phone: Start: 01-29-2023 End: 01-29-2023 Emergency department patient visit Jorge Mcintosh [facility] Start: 01-28-2023 End: 01-28-2023 ambulatory Joe Meza Other [employer] Other Start: 01-28-2023 Telephone encounter Joe Meza [facility] Sales Property Manager Start: 01-27-2023 End: 01-27-2023 Emergency department patient visit Services [facility] Work Phone: [facility] Work Phone: Start: 01-23-2023 End: 01-23-2023 Emergency department patient visit Services [facility] Work Phone: [facility] Work Phone: Start: 01-22-2023 End: 01-22-2023 Emergency department patient visit [facility] Bridger [facility] Start: 01-22-2023 End: 01-22-2023 ambulatory JORI Oanh [facility] Start: 01-22-2023 End: 01-22-2023 Office outpatient new 30 minutes Jori Cam MD PhD Work Phone: [facility] Comment on above: Chronic low back marily n, unspecified back pain laterality, unspecified whether sciatica present (Primary Dx) Start: 01-15-2023 End: 01-15-2023 ambulatory [facility] Start: 01-15-2023 End: 01-15-2023 Office outpatient new 45 minutes [facility]-C Work Phone: [facility] Comment on above: Encounter for screen ing mammogram for breast cancer (Primary Dx); Recurrent major depressive disorder, in full remission (CMS/HCC); Herniation of intervertebral disc between L4 and L5; Lumbar radiculopathy; Chronic hepatitis C without hepatic coma (CMS/HCC); Chronic, continuous use of opioids; Controlled substance agreement signed Start: 01-14-2023 End: 01-14-2023 Emergency department patient visit Jogre Arnaldo [facility] Start: 01-12-2023 End: 01-12-2023 [facility] Annette [facility] Start: 01-12-2023 End: 01-12-2023 Emergency department patient visit [facility] Work Phone: [facility] Work Phone: Start: 01-11-2023 End: 01-11-2023 Emergency department patient visit [facility] Work Phone: [facility] Work Phone: Start: 01-10-2023 End: 01-10-2023 ambulatory Joe Meza Other [facility] [employer] Other Start: 01-10-2023 Office outpatient vi sit 15 minutes Joe Meza [facility] Neurosurgery Start: 01-10-2023 End: 01-10-2023 Emergency department patient visit Nikhil Tubbs [facility] Start: 01-07-2023 End: 01-07-2023 Emergency department patient visit [facility] Work Phone: [facility] Work Phone: Start: 01-04-2023 End: 01-05-2023 Emergency department patient visit Balbina Starreduard [facility] Start: 01-04-2023 End: 01-04-2023 Emergency department patient visit [facility] Work Phone: [facility] Work Phone: Start: 01-02-2023 End: 01-02-2023 Emergency department patient visit Nikhil Tubbs [facility] Start: 12-31-2022 End: 12-31-2022 Emergency department patient visit DO Elisa Sánchez Facility:[facility] Start: 12-28-2022 End: 12-28-2022 Emergency department patient visit [facility] Work Phone: [facility] Work Phone: Start: 12-28-2022 End: 12-28-2022 Patient encounter procedure Services [facility] Work Phone: [facility]-XRay [place] Work Phone: Start: 12-28-2022 End: 12-28-2022 ambulatory Estelle Mayra Veliz Facility:[facility] Start: 12-27-2022 End: 12-27-2022 ambulatory Rose Marie Shepherd Other [facility] [employer] Other Start: 12-27-2022 Office outpatient vi sit 15 minutes Rose Marie Shepherd [facility] Start: 12-26-2022 End: 12-26-2022 Emergency department patient visit Balbina Finleyzander [facility] Start: 12-26-2022 End: 12-26-2022 ambulatory Glen Garza Other [facility] [employer] Other Start: 12-26-2022 Office outpatient vi sit 15 minutes Glen Garza [facility] Start: 12-24-2022 End: 12-24-2022 Emergency department patient visit Services [facility] Work Phone: [facility] Work Phone: Start: 12-23-2022 End: 12-23-2022 Emergency department patient visit Nikhil Tubbs [facility] Start: 12-21-2022 End: 12-21-2022 Emergency department patient visit Services [facility] Work Phone: [facility] Work Phone: Start: 12-18-2022 End: 12-18-2022 Emergency department patient visit Jorge Arnaldo [facility] Start: 12-14-2022 End: 12-14-2022 Emergency department patient visit [facility] Work Phone: [facility] Work Phone: Start: 12-13-2022 End: 12-13-2022 Emergency department patient visit Nikhil NguyenAdrien Tubbs [facility] Start: 12-12-2022 End: 12-13-2022 Emergency department patient visit Houstonjaidenradha Ellsworth Gonzalo [facility] Start: 12-12-2022 (PROC) PROCEDURE Glen Garza [facility] Medical OutPt Start: 12-12-2022 End: 12-12-2022 Admission to same day surgery center Services [facility] Work Phone: [facility] Work Phone: Start: 12-12-2022 End: 12-12-2022 ambulatory [facility] Work Phone: [facility] Work Phone: Start: 12-11-2022 End: 12-11-2022 Emergency department patient visit [facility] Work Phone: [facility] Work Phone: Start: 12-10-2022 End: 12-10-2022 Emergency department patient visit [facility] Work Phone: [facility] Work Phone: Start: 12-09-2022 End: 12-09-2022 Emergency department patient visit [facility] Work Phone: [facility] Work Phone: Start: 12-07-2022 End: 12-07-2022 Emergency department patient visit Chandana Varela [facility] Start: 12-07-2022 End: 12-07-2022 Emergency department patient visit [facility] Work Phone: [facility] Work Phone: Start: 12-04-2022 End: 12-04-2022 Emergency department patient visit ALLYSON E COREY [facility] Start: 12-04-2022 End: 12-04-2022 Emergency department patient visit Allyson Griffiths DO Work Phone: [facility] Emergency [facility] Tra[facility] Start: 11-29-2022 End: 11-29-2022 Emergency department patient visit [facility] Work Phone: [facility] Work Phone: Start: 11-28-2022 (PROC) PROCEDURE Glen Garza [facility] Start: 11-28-2022 End: 11-28-2022 Admission to same day surgery center Services [facility] Work Phone: [facility] Work Phone: Start: 11-28-2022 End: 11-28-2022 ambulatory [facility] Work Phone: [facility] Work Phone: Start: 11-19-2022 End: 11-19-2022 ambulatory Glen Garza Other [employer] Other Start: 11-19-2022 Office outpatient vi sit 25 minutes Glen Garza [facility] Start: 11-18-2022 End: 11-18-2022 Emergency department patient visit [facility] Work Phone: [facility] Work Phone: Start: 11-16-2022 End: 11-17-2022 Emergency department patient visit [facility] Work Phone: [facility] Work Phone: Start: 11-15-2022 End: 11-15-2022 Emergency department patient visit [facility] Work Phone: [facility] Work Phone: Start: 11-12-2022 End: 11-12-2022 Emergency department patient visit [facility] Work Phone: [facility] Work Phone: Start: 11-11-2022 End: 11-11-2022 Emergency department patient visit [facility] Work Phone: [facility] Work Phone: Start: 11-08-2022 End: 11-08-2022 Emergency department patient visit [facility] Work Phone: [facility] Work Phone: Start: 11-06-2022 Office outpatient vi sit 15 minutes Rose Marie Shepherd [facility] Neurosurgery Start: 11-06-2022 End: 11-06-2022 Patient encounter procedure [facility] Work Phone: [facility] [place] Work Phone: Start: 11-06-2022 End: 11-06-2022 ambulatory [facility] Work Phone: [facility] Work Phone: Start: 11-05-2022 End: 11-05-2022 Emergency department patient visit MD RASHAD RAMACHANDRAN Facility:[id number] Start: 11-01-2022 End: 11-01-2022 Emergency department patient visit [facility] Work Phone: [facility] Work Phone: Start: 10-31-2022 End: 10-31-2022 Patient encounter procedure [facility] Work Phone: [facility] [place] Work Phone: Start: 10-31-2022 End: 10-31-2022 ambulatory [facility] Work Phone: [facility] Work Phone: Start: 10-25-2022 End: 10-26-2022 Emergency department patient visit [facility] Work Phone: [facility]Emer[facility] Work Phone: Start: 10-23-2022 End: 10-23-2022 Emergency department patient visit [facility] Work Phone: [facility]Emer[facility] Work Phone: Start: 10-16-2022 End: 10-16-2022 Emergency department patient visit [facility] Work Phone: [facility]Emer[facility] Work Phone: Start: 10-11-2022 End: 10-11-2022 Emergency department patient visit [facility] Work Phone: [facility] Work Phone: Start: 10-07-2022 End: 10-07-2022 Emergency department patient visit [facility] Work Phone: [facility]Emer[facility] Work Phone: Start: 10-04-2022 End: 10-04-2022 Emergency department patient visit [facility] Work Phone: [facility] Work Phone: Start: 10-02-2022 End: 10-02-2022 Emergency department patient visit [facility] Work Phone: [facility] Work Phone: Start: 09-28-2022 End: 09-28-2022 Emergency department patient visit [facility] Work Phone: [facility] Work Phone: Start: 09-26-2022 End: 09-26-2022 ambulatory Glen Garza Other [employer] Other Start: 09-26-2022 Office outpatient vi sit 15 minutes Glen Garza [facility] Start: 09-24-2022 End: 09-24-2022 Emergency department patient visit [facility] Work Phone: [facility]-Emergency Room Work Phone: Start: 09-22-2022 End: 09-22-2022 Emergency department patient visit [facility] Work Phone: [facility]-Emergency Room Work Phone: Start: 09-19-2022 (PROC) PROCEDURE Glen Garza [facility] Medical OutPt Start: 09-19-2022 End: 09-19-2022 Admission to same day surgery center [facility] Work Phone: [facility]-Digestive Health Work Phone: Start: 09-19-2022 End: 09-19-2022 ambulatory [facility] Work Phone: [facility] [employer] Other Start: 09-18-2022 End: 09-18-2022 Emergency department patient visit [facility] Work Phone: [facility]-Emergency Room Work Phone: Start: 09-11-2022 End: 09-11-2022 ambulatory Rose Marie Shepherd Other [employer] Other Start: 09-11-2022 Telephone encounter Rose Marie Shepherd [facility] Neurosurgery Start: 09-11-2022 End: 09-11-2022 Emergency department patient visit [facility] Work Phone: [facility]-Emergency Room Work Phone: Start: 09-10-2022 End: 09-10-2022 Patient encounter procedure [facility] Work Phone: [facility]-Center for Breast Care Work Phone: Start: 09-10-2022 End: 09-10-2022 ambulatory [facility] Facility:[facility] Start: 09-06-2022 End: 09-06-2022 Discharged Recurring [facility] Work Phone: [facility]-Physical Therapy [place] [employer] Start: 09-05-2022 End: 09-05-2022 Emergency department patient visit [facility] Work Phone: [facility]-Emergency Room Work Phone: Start: 09-04-2022 End: 09-04-2022 Emergency department patient visit Pedro Pablo Fletcher [facility] Start: 09-04-2022 End: 09-04-2022 ambulatory Glen Garza Other [employer] Other Start: 09-04-2022 Office consultation new/estab patient 60 min Glen Garza [facility] Start: 09-04-2022 Telephone encounter Glen CHAU [employer] Start: 09-01-2022 End: 09-01-2022 Emergency department patient visit [facility] Work Phone: [facility]-Emergency Room Work Phone: Start: 08-31-2022 End: 08-31-2022 Emergency department patient visit [facility] Work Phone: [facility]-Emergency Room Work Phone: Start: 08-27-2022 End: 08-27-2022 ambulatory Rose Marie Shepherd Other [employer] Other Start: 08-27-2022 Telephone encounter Rose Marie CHAU [facility] Neurosurgery Start: 08-26-2022 End: 08-26-2022 Emergency department patient visit [facility] Work Phone: [facility]-Emergency Room Work Phone: Start: 08-21-2022 End: 08-21-2022 ambulatory Rose Marie Shepherd Other [employer] Other Start: 08-21-2022 Office outpatient ne w 45 minutes Rose Marie Shepherd [facility] Neurosurgery Start: 08-16-2022 End: 08-17-2022 Emergency department patient visit [facility] Work Phone: [facility]Emer[facility] Room Work Phone: Start: 08-13-2022 End: 08-13-2022 Emergency department patient visit [facility] Work Phone: [facility] Work Phone: Start: 08-09-2022 End: 08-09-2022 Patient encounter procedure [facility] Work Phone: [facility]XRay [place] Work Phone: Start: 08-06-2022 End: 08-06-2022 Emergency department patient visit [facility] Work Phone: [facility] Work Phone: Start: 08-02-2022 End: 08-02-2022 Emergency department patient visit [facility] Work Phone: [facility] Work Phone: Start: 06-16-2022 End: 06-16-2022 Emergency department patient visit [facility] Work Phone: [facility] Work Phone: Start: 03-30-2022 End: 03-30-2022 Admission to same day surgery center [facility] Work Phone: [facility]Digestive Health Work Phone: Start: 03-22-2022 End: 03-22-2022 ambulatory Keke Skaggs Other [facility] [employer] Other Start: 03-22-2022 Telephone encounter Keke Small [facility] Start: 03-19-2022 End: 03-19-2022 Emergency department patient visit [facility] Work Phone: [facility] Work Phone: Start: 03-17-2022 End: 03-17-2022 Emergency department patient visit [facility] Work Phone: [facility] Work Phone: Start: 03-14-2022 End: 03-14-2022 Emergency department patient visit [facility] Work Phone: [facility] Room Start: 02-03-2022 End: 02-03-2022 Emergency department patient visit [facility] Work Phone: [facility] Start: 01-21-2022 End: 01-21-2022 Emergency department patient visit [facility] Work Phone: [facility] Room Start: 01-10-2022 End: 01-10-2022 Patient encounter procedure [facility] Start: 12-20-2021 End: 12-20-2021 ambulatory [facility] Work Phone: [facility] Work Phone: Start: 12-20-2021 End: 12-20-2021 Patient encounter procedure [facility] Work Phone: [facility] [place] Start: 11-13-2021 End: 11-14-2021 Emergency department patient visit [facility] Work Phone: [facility]Emer[facility] Room Start: 10-30-2021 End: 10-30-2021 Patient encounter procedure [facility] Work Phone: [facility] [place] Start: 10-18-2021 End: 10-18-2021 Emergency department patient visit [facility] Work Phone: [facility] Start: 10-15-2021 End: 10-15-[address] DOCTOR [id number] Start: 10-09-2021 End: 10-10-2021 Emergency department patient visit Services [employer] Work Phone: [facility]-Emergency Room Start: 09-19-2021 End: 09-19-2021 Patient encounter procedure Services [employer] [facility] Work Phone: [facility] [place] Start: 09-13-2021 End: 09-14-2021 ambulatory ALMAS MITCHEL Facility: Start: 09-13-2021 End: 09-13-2021 Emergency department patient visit [facility] [employer] Phone: [facility]-Emergency Room Start: 06-21-2021 End: 06-21-2021 Lab Drop off Dagoberto Romero [facility] Start: 04-18-2021 (Procedure) Short Avery Goodman [facility] Start: 04-18-2021 End: 04-18-2021 ambulatory Avery Goodman Other [employer] Other Start: 03-30-2021 End: 03-30-2021 ambulatory Avery Goodman Other [employer] Other Start: 03-30-2021 Office consultation new/estab patient 60 min Avery Goodman [facility] [place] [employer] Start: 02-15-2021 End: 02-15-2021 ambulatory Jd Malone Other [employer] Other Start: 02-15-2021 Office outpatient vi sit 15 minutes Jd Malone [facility] Medical Equipment Procedure Code Equipment Code Equipment Origin al Text Equipment Identifier Dates Kellee Ponce - [id number] - [id number] Start: 08-21-2023 Goals Date Patient Goal Desired Activity /State Immunizations Immunization Date Immunization Notes Care Provider Farhat roman 04-26-2023 hepatitis B vaccine, adult dosage Dax Lira [facility] 07-03-2020 SARS-CoV-2 (COVID-19 ) Ad26 vaccine, recombinant Dax Lira [facility] Medications Current Medications Medication Drug Class(es) Dates Sig (Normalized) Sig (Original) acetaminophen 325 mg / butalbital 50 mg / caffeine 40 mg oral tablet (5 sources) Barbiturate, Central Nervous System Stimulant, Methylxanthine Start: 05-14-2023 take 1 tablet by mouth every four hours for headache APAP/butalbital/ caffeine 325 mg-50 mg-40 mg Tab 1 tab(s), Oral, q4hr for headache, 15 tab(s), Refill(s) 0, [id number], 160, cm, 05/14/23 10:27:00 EST, Height/Length Dosing, 115, kg, 05/14/23 10:27:00 EST, Weight Dosing Start Date: 05/14/23 Status: Ordered acetaminophen 325 mg / oxyCODONE hydrochloride 5 mg oral tablet (20 sources) Opioid Agonist Start: 09-10-2023 End: 09-10-2023 oxyCODONE-acetam inophen (PERCOCET) 5-325 MG per tablet 1 tablet Start: 08-09-2023 End: 08-12-2023 take 1 tablet by mouth every six hours as needed for pain oxyCODONE-acetaminophen (PERCOCET) 5-325 mg tablet Indications: Pain Take 1 Tab by mouth every 6 hours as needed (pain) for up to 3 days 12 Tab 0 08/09/2023 08/12/2023 Active Start: 08-05-2023 End: 08-08-2023 acetaminophen-oxycodone 325 mg-5 mg Tab 1 tab(s), Oral, q4hr for pain for 3 day(s), 12 tab(s), Refill(s) 0, [id number], 160, cm, 08/05/23 20:18:00 EDT, Height/Length Dosing, 114.7, kg, 08/05/23 20:18:00 EDT, Weight Dosing Start Date: 08/05/23 Stop Date: 08/08/23 Status: Ordered Start: 07-17-2023 End: 07-20-2023 acetaminophen-oxycodone 325 mg-5 mg Tab 2 tab(s), Oral, q6hr for pain for 3 day(s), 12 tab(s), Refill(s) 0, [id number], 160, cm, 07/17/23 8:06:00 EDT, Height/Length Dosing, 116.8, kg, 07/17/23 8:06:00 EDT, Weight Dosing Start Date: 07/17/23 Stop Date: 07/20/23 Status: Ordered Start: 06-08-2023 End: 06-11-2023 take 1 tablet by mouth every six hours as needed for pain oxyCODONE-acetaminophen (PERCOCET) 5-325 mg tablet Indications: Pain Take 1 Tab by mouth every 6 hours as needed (pain) for up to 3 days 12 Tab 0 06/08/2023 06/11/2023 Active Start: 04-13-2023 take 1 tablet by wei th three times daily as needed for pain oxyCODONE-acetaminophen (Percocet) 5-325 mg tablet Indications: Herniation of intervertebral disc between L4 and L5 , Lumbar radiculopathy Take 1 tablet by mouth 3 times a day as needed for severe pain (7 - 10). 90 tablet 04/13/2023 Active Start: 03-11-2023 take 1 tablet by wei th three times daily as needed for pain oxyCODONE-acetaminophen (Percocet) 5-325 mg tablet Indications: Herniation of intervertebral disc between L4 and L5 , Lumbar radiculopathy Take 1 tablet by mouth 3 times a day as needed for severe pain (7 - 10). 90 tablet 0 03/11/2023 Active Start: 02-11-2023 take 1 tablet by wei th three times daily as needed for pain oxyCODONE-acetaminophen (Percocet) 5-325 mg tablet Indications: Herniation of intervertebral disc between L4 and L5 , Lumbar radiculopathy Take 1 tablet by mouth 3 times a day as needed for severe pain (7 - 10). 90 tablet 0 02/11/2023 Active Start: 02-08-2023 End: 06-01-2023 take 1 tablet by mouth every six hours Oxycodone-Acetaminophen (Percocet) 5-325 mg tablet Discontinued 1 TAB PO Every 6 hours 12 May 19, 2023 June 01, 2023 2:55pm Start: 12-24-2022 End: 01-12-2023 take 1 tablet by mouth every six hours Oxycodone-Acetaminophen Discontinued 1 T AB PO Q6H 12 January 07, 2023 January 12, 2023 10:17am Start: 12-21-2022 End: 12-24-2022 take 1 tablet by mouth every eight hours Oxycodone-Acetaminophen (Percocet) 5-325 mg tablet Discontinued 1 TAB PO Q8H 9 December 21, 2022 December 24, 2022 1:07pm Start: 12-18-2022 End: 12-21-2022 Percocet 5 mg-325 mg oral ta blet 1 tab(s), Oral, q6hr as needed for pain for 3 day(s), 8 tab(s), Refill(s) 0, [id number], 160, cm, 12/18/22 12:28:00 EDT, Height/Length Dosing, 105.1, kg, 12/18/22 12:28:00 EDT, Weight Dosing Start Date: 12/18/22 Stop Date: 12/21/22 Status: Ordered Start: 12-04-2022 End: 12-10-2022 acetaminophen-oxycodone 325 mg-5 mg Tab 1 tab(s), Oral, q6hr for pain for 3 day(s), 12 tab(s), Refill(s) 0, [id number], 160, cm, 12/07/22 16:52:00 EDT, Height/Length Dosing, 105.1, kg, 12/07/22 16:52:00 EDT, Weight Dosing Start Date: 12/07/22 Stop Date: 12/10/22 Status: Ordered Start: 11-18-2022 End: 11-29-2022 take 1 tablet by mouth every six hours Oxycodone-Acetaminophen Discontinued 1 T AB PO Q6H 10 November 18, 2022 November 29, 2022 3:27pm Start: 11-08-2022 End: 11-11-2022 take 1 tablet by mouth every six hours Oxycodone-Acetaminophen Discontinued 1 T AB PO Q6H 10 November 08, 2022 November 11, 2022 3:38pm Start: 10-11-2022 End: 10-25-2022 take 1 tablet by mouth every six hours Oxycodone-Acetaminophen Discontinued 1 T AB PO Q6H 12 October 16, 2022 October 25, 2022 11:29pm Start: 10-07-2022 End: 10-11-2022 take 1 tablet by mouth every four to six hours Oxycodone-Acetaminophen (Percocet) 5-325 mg tablet Discontinued 1 TAB PO EVERY 4-6 HOURS 4 October 07, 2022 October 11, 2022 5:28pm Start: 09-28-2022 End: 10-02-2022 take 1 tablet by mouth every eight hours Oxycodone-Acetaminophen (Percocet) 5-325 mg tablet Discontinued 1 TAB PO Q8H 7 September 28, 2022 October 02, 2022 7:03pm Start: 09-18-2022 End: 09-28-2022 take 1 tablet by mouth every six hours Oxycodone-Acetaminophen (Percocet) 5-325 mg tablet Discontinued 1 TAB PO Q6H 10 September 24, 2022 September 28, 2022 5:16pm Start: 09-05-2022 End: 09-11-2022 take 1 tablet by mouth every eight hours Oxycodone-Acetaminophen (Percocet) 5-325 mg tablet Discontinued 1 TAB PO Q8H 10 September 05, 2022 September 11, 2022 12:38pm Start: 08-26-2022 End: 09-01-2022 take 1 tablet by mouth every six hours Oxycodone-Acetaminophen Discontinued 1 T AB PO Q6H 10 August 26, 2022 September 01, 2022 2:59pm Start: 08-17-2022 End: 08-26-2022 take 1 tablet by mouth every four to six hours Oxycodone-Acetaminophen (Percocet) 5-325 mg tablet Discontinued 1 TAB PO EVERY 4-6 HOURS 02 26August 17, 2022 August 26, 2022 3:39pm Start: 08-13-2022 End: 08-26-2022 take 1 tablet by mouth every eight hours Oxycodone-Acetaminophen (Percocet) 5-325 mg tablet Discontinued 1 TAB PO Q8H 10 August 13, 2022 August 26, 2022 3:39pm Start: 08-02-2022 End: 08-06-2022 take 1 tablet by mouth every six hours Oxycodone-Acetaminophen (Percocet) 5-325 mg tablet Discontinued 1 TAB PO Q6H 8 August 02, 2022 August 06, 2022 6:46pm Start: 03-14-2022 End: 03-29-2022 take 1 tablet by mouth once daily Oxycodone-Acetaminophen (Percocet) 5-325 mg tablet Discontinued 1 TAB PO Daily 5 March 14, 2022 March 29, 2022 2:25pm Start: 04-27-2021 End: 06-02-2021 take 1 tablet by mouth every six hours Oxycodone-Acetaminophen Discontinued 1 T AB PO Q6H 10 April 27, 2021 June 02, 2021 1:55pm Start: 11-27-2020 End: 01-27-2023 take 1 tablet by mouth three times daily Oxycodone-Acetaminophen (Percocet) 5-325 mg tablet Discontinued 1 TAB PO Three times daily 6 January 12, 2023 January 27, 2023 11:40am Start: 05-10-2020 End: 06-30-2020 take 1 tablet by mouth every four to six hours Oxycodone-Acetaminophen (Percocet) 5-325 mg tablet Discontinued 1 TAB PO EVERY 4-6 HOURS 7 May 10, 2020 June 30, 2020 3:39pm Start: 06-20-2017 End: 04-11-2018 take 1 tablet by mouth every four to six hours Oxycodone-Acetaminophen (Percocet) 5-325 mg tablet Discontinued 1 TAB PO EVERY 4-6 HOURS 7 August 29, 2017 April 01, 2018 8:03pm [id number] 200 actuat albuterol 0.09 mg/actuat metered dose inhaler (20 sources) beta2-Adrenergic Agonist Start: 07-24-2021 Albut maxwell Sulfate Active 2 INH INHALATION .every 4 hours prn July 24, 2021 12:00am administer with spacer Start: 02-02-2020 End: 06-30-2020 Albuterol Sulfate Discontinu ed 2 INH INHALATION EVERY 4-6 HOURS 6.7 February 02, 2020 1:00am June 30, 2020 3:39pm Aspirin / butalbital / Caffeine (2 sources) Start: 08-12-2023 End: 08-15-2023 take 1 capsule by mouth every six hours for pain Fiorinal 325 mg-50 mg-40 mg Cap 1 cap(s), Oral, q6hr for pain for 3 day(s), 12 cap(s), Refill(s) 0, [facility]acy #[id number], 160, cm, 08/12/23 20:54:00 EDT, Height/Length Dosing, 114.7, kg, 08/12/23 20:54:00 EDT, Weight Dosing Start Date: 08/12/23 Stop Date: 08/15/23 Status: Ordered baclofen 5 mg oral tablet (9 sources) gamma-Aminobu tyric Acid-ergic Agonist Start: 08-14-2023 End: 10-13-2023 take 1 tablet by mouth three times daily as needed for muscle spasms baclofen 5 mg oral tablet 5 mg = 1 tab(s), Oral, TID, take as needed for spasms, X 30 day(s), # 90 tab(s), Refills(s) 1, Pharmacy: [facility]/pharmacy #[id number], 160, cm, 08/14/23 15:27:00 EDT, Height/Length Dosing, 113.5, kg, 08/14/23 15:27:00 EDT, Weight Dosing Start Date: 08/14/23 Stop Date: 10/13/23 Status: Ordered calcium chloride 0.0014 meq/ml / potassium chloride 0.004 meq/ml / sodium chloride 0.103 meq/ml / sodium lactate 0.028 meq/ml injectable solution (1 source) Start: 08-21-2023 take 100 mL intravenously every hour 100 mL/hr, intravenous, Continuous, Starting on Sat08/21/23 at 1015, Recovery (only) chlorhexidine gluconate 1.2 mg/ml mouthwash (19 sources) Start: 08-02-2023 End: 08-21-2023 chlorhexidine (Peridex) 0.12 % solution Indications: Preoperative examination Swish and spit 15 mL night before surgery and morning of surgery 473 mL 08/02/2023 08/21/2023 Discontinued (Stop Taking at Discharge) Start: 01-13-2018 take 0.018 g by mout h twice daily Peridex 0.12% Liquid 0.018 gram, 15 mL, Oral, BID, 480 mL, Refill(s) 0, (swish and spit; do not swallow) Start Date: 01/13/18 Status: Ordered Start: 01-13-2018 take 0.018 g by mout h twice daily Peridex 0.12% Liquid 0.018 gram, 15 mL, Oral, BID, 480 mL, Refill(s) 0, (swish and spit; do not swallow) Start Date: 01/13/18 Status: Ordered cyclobenzaprine hydrochloride 10 mg oral tablet (20 sources) Muscle Relaxant Start: 09-10-2023 End: 09-10-2023 cyclobenzaprine (FLEXERIL) tablet 10 mg Start: 07-17-2023 End: 09-20-2023 take 1 tablet by mouth three times daily as needed for muscle spasms cyclobenzaprine 10 mg Tab 10 mg = 1 tab(s), Oral, TID, PRN for spasm, # 20 tab(s), Refills(s) 0, Pharmacy: [facility]/pharmacy #[id number], 160, cm, 08/15/23 22:27:00 EDT, Height/Length Dosing, 115.5, kg, 08/15/23 22:27:00 EDT, Weight Dosing Start Date: 08/16/23 Status: Ordered Start: 01-07-2023 End: 06-22-2023 take 10 mg by mouth three times daily Cyclobenzaprine Discontinued 10 MG PO Three times daily February 04, 2023 1:00am June 01, 2023 2:54pm Start: 12-23-2022 End: 01-04-2023 take 10 mg by mouth three times daily Cyclobenzaprine Discontinued 10 MG PO Three times daily December 24, 2022 12:00am January 04, 2023 3:20pm Start: 11-06-2022 take 1 tablet by wei th every twenty-four hours Cyclobenzaprine HCl 5 MG 1 tablet at bedtime as needed Orally Once a day for 30 day(s) Oct, Active Start: 10-11-2022 End: 10-25-2022 take 10 mg by mouth three times daily Cyclobenzaprine Discontinued 10 MG PO Three times daily October 16, 2022 5:51pm October 25, 2022 11:29pm Start: 08-31-2022 End: 09-18-2022 take 10 mg by mouth three times daily Cyclobenzaprine Discontinued 10 MG PO Three times daily August 31, 2022 12:00am September 18, 2022 3:40pm Start: 08-26-2022 End: 09-01-2022 Cyclobenzaprine Discontinued MG TABLET August 26, 2022 12:00am September 01, 2022 2:59pm Start: 08-21-2022 take 1 tablet by wei every twenty-four hours Cyclobenzaprine HCl 5 MG 1 tablet at bedtime as needed Orally Once a day for 30 day(s) July, Active Start: 06-16-2022 End: 08-13-2022 take 10 mg by mouth three times daily Cyclobenzaprine Discontinued 10 MG PO Three times daily June 16, 2022 12:00am August 13, 2022 5:22pm Start: 01-18-2021 take 1 tablet by wei every eight hours as needed Cyclobenzaprine HCl 5 MG 1 tablet Orally every 8 hours as needed for 30 day(s) Dec, Active Dexamethasone (20 sources) Corticosteroid Start: 09-10-2023 End: 09-10-2023 dexAMETHasone (DECADRON) tab let 10 mg Start: 12-11-2022 End: 01-04-2023 take 6 mg by mouth once daily Dexamethasone Discontinu ed 6 MG PO Daily December 11, 2022 12:00am January 04, 2023 3:20pm diazePAM 5 mg oral tablet (5 sources) Benzodiazepine Start: 12-04-2022 End: 12-04-2022 take 1 tablet by mouth three times daily diazePAM (VALIUM) 5 mg tablet Indications: Lumbar disc disease Take 1 Tab by mouth three times a day 10 Tab 0 12/04/2022 Active diclofenac sodium 0.03 mg/mg topical gel (20 sources) Nonsteroidal Anti-inflammatory Drug Start: 09-04-2022 Diclofenac Sodium 3 % as directed Externally apply to painful areas two to three times daily as needed for 30 days Aug, Active Start: 06-02-2021 End: 01-21-2022 apply 4 g topically four times daily Diclofenac Sodium Discontinued 4 GM TOPICAL Four times daily June 02, 2021 1:00am January 21, 2022 8:16pm apply to single knee, ankle, foot; for foot includes sole/toes/top of foot dicyclomine hydrochloride 10 mg oral capsule (20 sources) Anticholinergic Start: 06-22-2023 take 1 capsule by mouth four times daily as needed Bentyl 10 mg Cap 10 mg = 1 cap(s), Oral, QID, PRN Other (see comment), For abdominal cramping, # 12 cap(s), Refills(s) 0, Pharmacy: [facility]/pharmacy #[id number], 160, cm, 06/22/23 14:24:00 EDT, Height/Length Dosing, 118.5, kg, 06/22/23 14:24:00 EDT, Weight Dosing Start Date: 06/22/23 Status: Ordered Start: 06-01-2023 End: 06-26-2023 take 10 mg by mouth twice daily Dicyclomine Discontinued 10 MG PO Twice daily June 01, 2023 1:00am June 26, 2023 4:40pm Start: 03-19-2022 End: 08-26-2022 take 20 mg by mouth four times daily Dicyclomine Discontinued 20 MG PO Four times daily March 19, 2022 1:00am August 26, 2022 3:39pm Start: 03-17-2022 End: 03-29-2022 take 20 mg by mouth three times daily Dicyclomine Discontinued 20 MG PO Three times daily March 17, 2022 1:00am March 29, 2022 2:25pm Start: 03-14-2022 End: 03-29-2022 take 10 mg by mouth twice daily Dicyclomine Discontinued 10 MG PO Twice daily 6 March 14, 2022 8:45pm March 29, 2022 2:25pm diflunisal 500 mg oral tablet (6 sources) Nonsteroidal Anti-inflammatory Drug Start: 09-02-2023 take 1 tablet by mouth every twelve hours diflunisal 500 mg Tab 500 mg = 1 tab(s), Oral, q12hr, # 20 tab(s), Refills(s) 0, Pharmacy: [facility]/pharmacy #[id number], 160, cm, 09/02/23 18:11:00 EDT, Height/Length Dosing, 115.5, kg, 09/02/23 18:11:00 EDT, Weight Dosing Start Date: 09/02/23 Status: Ordered docusate sodium 50 mg / sennosides, fpc 8.6 mg oral tablet (2 sources) Start: 08-21-2023 End: 08-28-2023 take 1 tablet by mouth once daily sennosides-docusat e sodium (Judy-Colace) 8.6-50 mg tablet Indications: Continuous opioid dependence (Multi) Take 1 tablet by mouth once daily for 7 days. 7 tablet 08/21/2023 08/28/2023 Active 2 ml droperidol 2.5 mg/ml injection (1 source) Dopamine-2 Receptor Antagonist Start: 08-21-2023 0.625 mg, intravenous, Once as needed, nausea/vomiting, second line, Starting on Sat08/21/23 at 0946, For 1 dose, Recovery (only), Monitor QTc while on therapy (2 lead monitoring) 1 ml fentaNYL 0.05 mg/ml injection (6 sources) Opioid Agonist Start: 08-21-2023 50 mcg, intravenous, Every 5 min PRN, pain severe (7-10), first line, Starting on Sat08/21/23 at 0946, Recovery (only), Max total of 200 micrograms regardless of dose., If ordered PRN for pain, nurse is permitted to administer this medication for higher pain scores based on patient preference? Yes Start: 08-21-2023 25 mcg, intrav enous, Every 5 min PRN, pain moderate (4-6), first line, Starting on Sat08/21/23 at 0946, Recovery (only), Max total of 200 micrograms regardless of dose., If ordered PRN for pain, nurse is permitted to administer this medication for higher pain scores based on patient preference? Yes Start: 08-21-2023 12.5 mcg, intr avenous, Every 5 min PRN, pain mild (1-3), first line, Starting on Sat08/21/23 at 0946, Recovery (only), Max total of 200 micrograms regardless of dose., If ordered PRN for pain, nurse is permitted to administer this medication for higher pain scores based on patient preference? Yes Start: 08-09-2023 End: 08-09-2023 fentaNYL (PF) (SUBLIMAZE) in jection solution 50 mcg Start: 06-08-2023 End: 06-08-2023 fentaNYL (PF) (SUBLIMAZE) in jection solution 50 mcg Start: 12-04-2022 End: 12-04-2022 fentaNYL (PF) (SUBLIMAZE) in jection solution 75 mcg FLUoxetine 60 mg oral tablet (20 sources) Serotonin Reuptake Inhibitor Start: 02-11-2023 take 1 tablet by mouth once daily FLUoxetine 60 mg oral tablet 60 mg = 1 tab(s), Oral, Daily, # 90 tab(s), Refills(s) 1, Pharmacy: [facility]/pharmacy #[id number], 160, cm, 07/17/23 8:06:00 EDT, Height/Length Dosing, 116.8, kg, 07/17/23 8:06:00 EDT, Weight Dosing Start Date: 07/17/23 Status: Ordered Start: 12-20-2022 End: 01-15-2023 take 1 tablet by mouth once daily FLUoxetine (PROzac) 60 mg tablet Indications: Recurrent major depressive disorder, in full remission (CMS/HCC) Take 1 tablet (60 mg) by mouth once daily. 30 tablet 6 01/15/2023 Active Start: 06-02-2021 take 3 capsules by m outh once daily Fluoxetine (Prozac) 20 mg capsule Active 60 MG PO Daily June 02, 2021 1:00am Start: 06-02-2021 take 20 mg by mouth once daily Fluoxetine Active 20 MG PO Daily June 02, 2021 12:00am Start: 06-02-2021 take 60 mg by mouth once daily Fluoxetine Active 60 MG PO Daily June 02, 2021 1:00am Mavyret (18 sources) Start: 06-03-2023 take 3 tablets by mo uth once daily Mavyret 3 tab(s), Oral, Daily, Refill(s) 0 Start Date: 06/03/23 Status: Ordered Start: 05-15-2023 Glecaprevir-Pi brentasvir (Mavyret) 100-40 mg tablet Active TAB PO May 15, 2023 12:00am Start: 04-27-2023 End: 09-08-2023 take 1 tablet by mouth once daily Glecaprevir-Pibrentasvir (Mavyret) 100-4 0 mg tablet Discontinued 3 TAB PO Daily May 15, 2023 1:00am September 08, 2023 6:36pm ibuprofen 600 mg oral tablet (20 sources) Nonsteroidal Anti-inflammatory Drug Start: 09-10-2023 take 1 tablet by mouth three times daily as needed for pain ibuprofen (ADVIL;MOTRIN) 600 MG tablet Take 1 tablet by mouth 3 times daily as needed for Pain 30 tablet 0 09/10/2023 Active Start: 07-17-2023 take 1 tablet by wei th three times daily ibuprofen 800 mg Tab 800 mg = 1 tab(s), Oral, TID, # 30 tab(s), Refills(s) 0, Pharmacy: [facility]/pharmacy #[id number], 160, cm, 07/17/23 8:06:00 EDT, Height/Length Dosing, 116.8, kg, 07/17/23 8:06:00 EDT, Weight Dosing Start Date: 07/17/23 Status: Ordered Start: 06-27-2023 take 1 tablet by wei th every six hours ibuprofen 600 mg Tab 600 mg = 1 tab(s), Oral, q6hr, Pt is to start this after she has completed the course of prednisone, # 40 tab(s), Refills(s) 0, Pharmacy: [facility]/pharmacy #[id number], 160, cm, 06/27/23 11:54:00 EDT, Height/Length Dosing, 117.2, kg, 06/27/23 11:54:00 EDT, Weight Dosing Start Date: 06/27/23 Status: Ordered Start: 02-21-2023 take 800 mg by mouth every eight hours Ibuprofen Active 800 MG PO Q8H February 21, 2023 6:15pm Start: 01-12-2023 End: 06-01-2023 take 800 mg by mouth three times daily Ibuprofen Discontinued 800 MG PO Three times daily January 12, 2023 12:00am June 01, 2023 2:54pm Start: 08-31-2022 End: 09-01-2022 take 800 mg by mouth three times daily Ibuprofen Discontinued 800 MG PO Three times daily August 31, 2022 12:00am September 01, 2022 2:59pm Start: 03-19-2022 End: 03-29-2022 take 800 mg by mouth three times daily Ibuprofen Discontinued 800 MG PO Three times daily March 19, 2022 1:00am March 29, 2022 2:25pm Start: 01-21-2022 End: 09-28-2022 take 800 mg by mouth every six hours Ibuprofen Discontinued 800 MG PO Q6H January 21, 2022 12:00am September 28, 2022 5:16pm Start: 05-10-2020 End: 06-30-2020 take 800 mg by mouth three times daily Ibuprofen Discontinued 800 MG PO Three times daily May 10, 2020 11:42am June 30, 2020 3:39pm Start: 01-13-2018 take 1 tablet by wei th every eight hours ibuprofen 600 mg Tab 600 mg = 1 tab(s), Oral, q8hr, # 60 tab(s), Refills(s) 0 Start Date: 01/13/18 Status: Ordered Start: 02-01-2017 End: 08-29-2017 take 800 mg by mouth three times daily Ibuprofen Discontinued 800 MG PO Three times daily February 01, 2017 1:00am August 29, 2017 2:32pm lidocaine 0.05 mg/mg medicated patch (20 sources) Antiarrhythmic, Amide Local Anesthetic Start: 09-02-2023 Lidoderm 5% Patch 1 patch(es), Topical, Daily, 7 patch(es), Refill(s) 0, apply 12 hours on and 12 hours off daily, [facility]/pharmacy #[id number], 160, cm, 09/02/23 18:11:00 EDT, Height/Length Dosing, 115.5, kg, 09/02/23 18:11:00 EDT, Weight Dosing Start Date: 09/02/23 Status: Ordered Start: 08-09-2023 End: 08-10-2023 Lidocaine (ASPERCREME) 4 % t opical patch 1 Patch Start: 05-20-2023 End: 05-20-2023 lidocaine (Xylocaine) 10 mg/ mL (1 %) injection 0.5 mL Start: 04-28-2023 End: 05-13-2023 apply 1 dose topically once daily lidocaine patch (LIDODERM) 5 % topical patch Apply 1 Patch daily for 15 doses 15 Patch 0 04/28/2023 05/13/2023 Active Start: 04-27-2023 Lidocaine (ASP ERCREME) 4 % topical patch 2 Patch Start: 12-23-2022 Lidoderm 5% Pa tch 1 patch(es), Topical, Daily, 7 EA, Refill(s) 0, apply 12 hours on and 12 hours off daily, [facility]/pharmacy #[id number], 160, cm, 01/12/23 20:29:00 EDT, Height/Length Dosing, 114.3, kg, 01/12/23 20:29:00 EDT, Weight Dosing Start Date: 01/12/23 Status: Ordered Start: 08-02-2022 End: 10-16-2022 apply 1 dose topically every twenty-four hours Lidocaine Discontinued 1 PATCH TOPICAL Q24H 15 August 02, 2022 12:00am October 16, 2022 4:13pm leave on most painful area for up to 12 hrs Medrol Dose Pack as directed (5 sources) Start: 01-18-2021 Medrol Dose Pa ck as directed as directed orally as directed Dec, Active meloxicam 15 mg oral tablet (20 sources) Nonsteroidal Anti-inflammatory Drug Start: 09-04-2022 End: 04-22-2023 take 1 tablet by mouth once daily meloxicam (Mobic) 15 mg tablet Indications: Chronic low back pain, unspecified back pain laterality, unspecified whether sciatica present Take 1 tablet (15 mg) by mouth once daily. 30 tablet 2 01/22/2023 04/01/2023 Discontinued (Therapy completed) Start: 01-18-2021 take 1 tablet by wei th every twenty-four hours Meloxicam 15 MG 1 tablet Orally Once a day for 30 day(s) Dec, Active methocarbamol 750 mg oral tablet (20 sources) Muscle Relaxant Start: 09-02-2023 End: 09-09-2023 take 1 tablet by mouth three times daily Robaxin-750 oral tablet 750 mg = 1 tab(s), Oral, TID, X 7 day(s), # 21 tab(s), Refills(s) 0, Pharmacy: [facility]/pharmacy #[id number], 160, cm, 09/02/23 18:11:00 EDT, Height/Length Dosing, 115.5, kg, 09/02/23 18:11:00 EDT, Weight Dosing Start Date: 09/02/23 Stop Date: 09/09/23 Status: Ordered Start: 08-09-2023 End: 08-09-2023 methocarbamoL (ROBAXIN) tabl et 1,000 mg Start: 08-05-2023 End: 08-19-2023 take 2 tablets by mouth four times daily Robaxin 500 mg Tab 1,000 mg = 2 tab(s), Oral, QID, X 14 day(s), # 112 tab(s), Refills(s) 0, [id number], cm, 08/05/23 20:18:00 EDT, Height/Length Dosing, 114.7, kg, 08/05/23 20:18:00 EDT, Weight Dosing Start Date: 08/05/23 Stop Date: 08/19/23 Status: Ordered Start: 07-26-2023 End: 08-02-2023 take 1 tablet by mouth three times daily Robaxin-750 oral tablet 750 mg = 1 tab(s), Oral, TID, X 7 day(s), # 21 tab(s), Refills(s) 0, Pharmacy: [facility]/pharmacy #[id number], 160, cm, 07/26/23 11:12:00 EDT, Height/Length Dosing, 116.8, kg, 07/26/23 11:12:00 EDT, Weight Dosing Start Date: 07/26/23 Stop Date: 08/02/23 Status: Ordered Start: 06-15-2023 End: 06-22-2023 take 1 tablet by mouth three times daily Robaxin-750 oral tablet 1,500 mg = 2 tab(s), Oral, TID, X 7 day(s), # 42 tab(s), Refills(s) 0, Pharmacy: [facility]/pharmacy #[id number], 160, cm, 06/15/23 18:08:00 EDT, Height/Length Dosing, 118.5, kg, 06/15/23 18:08:00 EDT, Weight Dosing Start Date: 06/15/23 Stop Date: 06/22/23 Status: Ordered Start: 06-11-2023 End: 06-14-2023 take 1 tablet by mouth three times daily Robaxin 500 mg Tab 500 mg = 1 tab(s), Oral, TID, X 3 day(s), # 9 tab(s), Refills(s) 0, Pharmacy: [facility]/pharmacy #[id number], 160, cm, 06/11/23 19:00:00 EDT, Height/Length Dosing, 118.8, kg, 06/11/23 19:00:00 EDT, Weight Dosing Start Date: 06/11/23 Stop Date: 06/14/23 Status: Ordered Start: 06-08-2023 End: 06-13-2023 take 2 tablets by mouth twice daily as needed methocarbamoL (ROBAXIN) 500 mg tablet Take 2 Tab by mouth two times a day as needed for up to 5 days 20 Tab 0 06/08/2023 06/13/2023 Active Start: 04-28-2023 End: 06-08-2023 take 2 tablets by mouth three times daily as needed methocarbamoL (ROBAXIN) 500 mg tablet Take 2 Tab by mouth three times a day as needed for up to 90 doses 90 Tab 0 04/28/2023 06/08/2023 Discontinued (Therapy Completed) Start: 04-27-2023 End: 04-27-2023 methocarbamoL (ROBAXIN) tabl et 1,000 mg Start: 04-10-2023 End: 04-13-2023 take 1 tablet by mouth three times daily as needed for pain Robaxin-750 oral tablet 750 mg = 1 tab(s), Oral, TID, PRN as needed for pain, X 3 day(s), # 9 tab(s), Refills(s) 0, Pharmacy: [facility]/pharmacy #[id number], 160, cm, 04/10/23 22:09:00 EST, Height/Length Dosing, 114.5, kg, 04/10/23 22:09:00 EST, Weight Dosing Start Date: 04/10/23 Stop Date: 04/13/23 Status: Ordered Start: 04-02-2023 End: 04-05-2023 take 1 tablet by mouth three times daily Robaxin 500 mg Tab 500 mg = 1 tab(s), Oral, TID, X 3 day(s), # 9 tab(s), Refills(s) 0, Pharmacy: [facility]/pharmacy #[id number], 160, cm, 04/02/23 21:48:00 EST, Height/Length Dosing, 110, kg, 04/02/23 21:48:00 EST, Weight Dosing Start Date: 04/02/23 Stop Date: 04/05/23 Status: Ordered Start: 02-07-2023 End: 02-10-2023 take 1 tablet by mouth three times daily Robaxin 500 mg Tab 500 mg = 1 tab(s), Oral, TID, X 3 day(s), # 9 tab(s), Refills(s) 0 Start Date: 02/07/23 Stop Date: 02/10/23 Status: Ordered Start: 12-07-2022 End: 12-14-2022 take 2 tablets by mouth four times daily Robaxin 500 mg Tab 1,000 mg = 2 tab(s), Oral, QID, X 7 day(s), # 56 tab(s), Refills(s) 0, Pharmacy: [facility]/pharmacy #[id number], 160, cm, 12/07/22 16:52:00 EDT, Height/Length Dosing, 105.1, kg, 12/07/22 16:52:00 EDT, Weight Dosing Start Date: 12/07/22 Stop Date: 12/14/22 Status: Ordered Start: 08-02-2022 End: 08-26-2022 take 750 mg by mouth three times daily Methocarbamol Discontinued 750 MG PO Three times daily August 02, 2022 12:00am August 26, 2022 3:39pm methylPREDNISolone 4 mg oral tablet (20 sources) Corticosteroid Start: 08-30-2023 End: 09-05-2023 Medrol 4 mg Tab = 1 packet(s), Oral, As Directed, as directed on package labeling, X 6 day(s), # 21 tab(s), Refills(s) 0, Pharmacy: [facility]/pharmacy #[id number], 160, cm, 08/30/23 18:16:00 EDT, Height/Length Dosing, 115.5, kg, 08/30/23 18:16:00 EDT, Weight Dosing Start Date: 08/30/23 Stop Date: 09/05/23 Status: Ordered Start: 04-10-2023 End: 04-16-2023 Medrol Dosepack 4 mg Tab = 1 packet(s), Oral, As Directed, as directed on package labeling, X 6 day(s), # 21 tab(s), Refills(s) 0, Pharmacy: [facility]/pharmacy #[id number], 160, cm, 04/10/23 22:09:00 EST, Height/Length Dosing, 114.5, kg, 04/10/23 22:09:00 EST, Weight Dosing Start Date: 04/10/23 Stop Date: 04/16/23 Status: Ordered Start: 01-10-2023 End: 01-16-2023 Medrol 4 mg Tab = 1 packet(s ), Oral, As Directed, as directed on package labeling, X 6 day(s), # 21 tab(s), Refills(s) 0, Pharmacy: [facility]/pharmacy #[id number], 160, cm, 01/10/23 10:36:00 EDT, Height/Length Dosing, 115.7, kg, 01/10/23 10:36:00 EDT, Weight Dosing Start Date: 01/10/23 Stop Date: 01/16/23 Status: Ordered Start: 10-11-2022 End: 10-25-2022 Methylprednisolone Discontin ued 0 PO .COMPLEX October 10, 2022 11:00pm October 25, 2022 10:29pm orally per package directions Start: 10-11-2022 End: 10-25-2022 Methylprednisolone Discontin ued 0 PO .COMPLEX October 11, 2022 12:00am October 25, 2022 11:29pm orally per package directions Start: 10-11-2022 Methylpredniso lone Active 0 PO .COMPLEX October 11, 2022 12:00am orally per package directions Start: 08-06-2022 End: 08-13-2022 Methylprednisolone Discontin ued 0 PO .COMPLEX August 05, 2022 11:00pm August 13, 2022 4:22pm orally per package directions Start: 08-06-2022 End: 08-13-2022 Methylprednisolone Discontin ued 0 PO .COMPLEX August 06, 2022 12:00am August 13, 2022 5:22pm orally per package directions Start: 08-06-2022 Methylpredniso lone Active 0 PO .COMPLEX August 06, 2022 12:00am orally per package directions metoclopramide 10 mg oral tablet (11 sources) Dopamine-2 Receptor Antagonist Start: 08-12-2023 take 1 tablet by mouth every six hours Reglan 10 mg Tab 10 mg = 1 tab(s), Oral, q6hr, # 12 tab(s), Refills(s) 0, Pharmacy: [facility]/pharmacy #[id number], 160, cm, 08/12/23 20:54:00 EDT, Height/Length Dosing, 114.7, kg, 08/12/23 20:54:00 EDT, Weight Dosing Start Date: 08/12/23 Status: Ordered Start: 03-26-2023 End: 03-31-2023 take 1 tablet by mouth three times daily Reglan 10 mg Tab 10 mg = 1 tab(s), Oral, TID, X 5 day(s), # 15 tab(s), Refills(s) 0, Pharmacy: [facility]/pharmacy #[id number], 160, cm, 03/26/23 10:58:00 EST, Height/Length Dosing, 110, kg, 03/26/23 10:58:00 EST, Weight Dosing Start Date: 03/26/23 Stop Date: 03/31/23 Status: Ordered naloxone hydrochloride 40 mg/ml nasal spray (10 sources) Opioid Antagonist Start: 01-15-2023 End: 01-15-2024 naloxone (Narcan) 4 mg/0.1 mL nasal spray Indications: Chronic, continuous use of opioids Administer 1 spray (4 mg) into affected nostril(s) if needed for opioid reversal. May repeat every 2-3 minutes if needed, alternating nostrils, until medical assistance becomes available. 2 each 01/15/2023 08/21/2023 Discontinued (Stop Taking at Discharge) 2 ml ondansetron 2 mg/ml injection (20 sources) Serotonin-3 Receptor Antagonist Start: 08-21-2023 4 mg, intravenous, Once as needed, nausea/vomiting, first line, Starting on Sat08/21/23 at 0946, For 1 dose, Recovery (only), When administering via IV Push, administer over 3-5 minutes. Start: 06-08-2023 End: 06-08-2023 ondansetron (ZOFRAN ODT) RAP ID DISSOLVING tablet 4 mg Start: 06-01-2023 take 4 mg by mouth e very eight hours Ondansetron Active 4 MG PO Every 8 hours 9 June 01, 2023 1:00am Start: 12-18-2023 take 1 tablet by wei th every six hours as needed for nausea Zofran 4 mg Tab 4 mg = 1 tab(s), Oral, q6hr, PRN Nausea, Take one tab by mouth every six hours as needed for nausea, # 10 tab(s), Refills(s) 0 Start Date: 03/11/23 Status: Ordered Start: 12-04-2022 take 1 tablet by wei th every six hours as needed ondansetron (ZOFRAN ODT) RAPID DISSOLVING tablet 4 mg Start: 11-14-2021 End: 09-05-2022 take 4 mg by mouth every eight hours Ondansetron Discontinued 4 MG PO Q8H 6 January 21, 2022 12:00am March 29, 2022 2:25pm Start: 11-14-2021 take 4 mg by mouth e very eight hours Ondansetron Active 4 MG PO Q8H 6 2 November 14, 2021 12:00am Start: 11-14-2021 take 4 mg by mouth e very eight hours Ondansetron Active 4 MG PO Q8H 6 2 November 14, 2021 12:00am Start: 02-02-2020 End: 06-30-2020 take 4 mg by mouth every eight hours Ondansetron Discontinued 4 MG PO Q8H 9 February 02, 2020 1:00am June 30, 2020 3:39pm oxyCODONE hydrochloride 5 mg oral tablet (20 sources) Opioid Agonist Start: 08-21-2023 End: 09-10-2023 take 1 tablet by mouth every six hours for pain oxyCODONE (Roxicodone) 5 mg immediate release tablet Indications: Chronic back pain greater than 3 months duration , Neuropathic pain Take 1 tablet (5 mg) by mouth every 6 hours if needed for severe pain (7 - 10) for up to 3 days. 12 tablet 08/27/2023 08/30/2023 Active Start: 05-12-2023 oxyCODONE 5 mg Cap 5 mg = 1 cap(s), Oral, q6hr, PRN Pain 8-10, # 9 cap(s), Refills(s) 0, Pharmacy: [facility]/pharmacy #[id number], 160, cm, 05/12/23 10:26:00 EST, Height/Length Dosing, 114.8, kg, 05/12/23 10:26:00 EST, Weight Dosing Start Date: 05/12/23 Status: Ordered Start: 11-14-2021 End: 01-21-2022 take 1 tablet by mouth three times daily Oxycodone (Roxicodone) 5 mg tablet Discontinued 5 MG PO Three times daily 7 3 November 14, 2021 January 21, 2022 8:16pm Start: 11-14-2021 take 1 tablet by wei th three times daily Oxycodone (Roxicodone) 5 mg tablet Active 5 MG PO Three times daily 7 November 14, 2021 Start: 11-14-2021 take 1 tablet by wei th three times daily Oxycodone (Roxicodone) 5 mg tablet Active 5 MG PO Three times daily 7 November 14, 2021 take 1 tablet by wei th every six hours oxyCODONE HCl 5 MG 1 tablet as needed Orally every 6 hrs Active oxygen (O2) therapy (1 source) Start: 08-21-2023 inhalation, Co ntinuous - Inhalation, First dose on Sat08/21/23 at 1015, Recovery (only), Device: Nasal Cannula, Rate in liters per minute: Other, Custom Value: 1-6 LPM, Keep O2 Sat Above: 92% predniSONE 10 mg oral tablet (20 sources) Start: 06-27-2023 predniSONE 10 mg Tab = 1 -, Oral, As Directed, Take 3 tabs by mouth daily x3 days, then 2 tabs daily x3 days, then 1 tab daily x3 days., # 18 tab(s), Refills(s) 0, Pharmacy: [facility]/pharmacy #[id number], 160, cm, 06/27/23 11:54:00 EDT, Height/Length Dosing, 117.2, kg, 06/27/23 11:54:00 EDT, Weight Dosing Start Date: 06/27/23 Status: Ordered Start: 06-11-2023 End: 06-16-2023 take 1 tablet by mouth once daily predniSONE 50 mg Tab 50 mg = 1 tab(s), Oral, Daily, X 5 day(s), # 5 tab(s), Refills(s) 0, Pharmacy: [facility]/pharmacy #[id number], 160, cm, 06/11/23 19:00:00 EDT, Height/Length Dosing, 118.8, kg, 06/11/23 19:00:00 EDT, Weight Dosing Start Date: 06/11/23 Stop Date: 06/16/23 Status: Ordered Start: 02-07-2023 End: 02-12-2023 take 1 tablet by mouth once daily predniSONE 50 mg Tab 50 mg = 1 tab(s), Oral, Daily, X 5 day(s), # 5 tab(s), Refills(s) 0 Start Date: 02/07/23 Stop Date: 02/12/23 Status: Ordered Start: 08-31-2022 End: 09-01-2022 Prednisone Discontinued 0 MG .ROUTE .COMPLEX 39 August 31, 2022 12:00am September 01, 2022 2:59pm 6 tabs for 3 days 4 tabs for 3 days 2 tabs for 3 days 1 tabs for 3 days Start: 08-21-2022 predniSONE 10 MG Take 3 tablets by mouth for 3 days then 2 tablets by mouth for 3 days then 1 tablet by mouth for 3 days Orally Once a day for July, Active Start: 06-16-2022 End: 08-06-2022 take 50 mg by mouth once daily Prednisone Discontinued 50 MG PO Daily 4 June 16, 2022 12:00am August 06, 2022 6:45pm Start: 06-02-2021 End: 01-21-2022 take 50 mg by mouth once daily at mealtime Prednisone Discontinued 50 MG PO Daily 4 July 24, 2021 4:40pm January 21, 2022 8:16pm administer with food or milk Start: 01-08-2021 End: 04-27-2021 take 60 mg by mouth once daily at mealtime Prednisone Discontinued 60 MG PO Daily January 08, 2021 12:00am April 27, 2021 12:57pm administer with food or milk Start: 02-09-2020 End: 06-30-2020 take 60 mg by mouth once daily Prednisone Discontinued 60 MG PO Daily 06 08February 09, 2020 1:00am June 30, 2020 3:39pm Start: 05-10-2018 End: 05-15-2018 take 60 mg by mouth once daily Prednisone Discontinued 60 MG PO Daily 15 May 10, 2018 1:00am May 15, 2018 1:01am pregabalin 50 mg oral capsule (8 sources) Start: 07-15-2023 End: 09-13-2023 take 1 capsule by mouth twice daily pregabalin 50 mg Cap 50 mg = 1 cap(s), Oral, BID, X 30 day(s), # 60 cap(s), Refills(s) 1, [id number] 160, cm, 07/15/23 13:55:00 EDT, Height/Length Dosing, 116.5, kg, 07/15/23 13:55:00 EDT, Weight Dosing Start Date: 07/15/23 Stop Date: 09/13/23 Status: Ordered promethazine hydrochloride 25 mg rectal suppository (8 sources) Phenothiazine Start: 04-30-2023 take 25 mg rectal route every six hours as needed for nausea Phenergan 25 mg Supp 25 mg = 1 supp, Rectal, q6hr, PRN Nausea/Vomiting, # 6 EA, Refills(s) 0, [id number] 160, cm, 04/30/23 17:09:00 EST, Height/Length Dosing, 114, kg, 04/30/23 17:09:00 EST, Weight Dosing Start Date: 04/30/23 Status: Ordered Robaxin-750 (1 source) Robaxin-750 Acti ve tiZANidine 4 mg oral tablet (6 sources) Central alpha-2 Adrenergic Agonist Start: 06-27-2023 take 1 tablet by mouth every six hours as needed for pain tiZANidine 4 mg Tab 4 mg = 1 tab(s), Oral, q6hr, PRN Muscle pain, # 40 tab(s), Refills(s) 0, [id number] 160, cm, 06/27/23 11:54:00 EDT, Height/Length Dosing, 117.2, kg, 06/27/23 11:54:00 EDT, Weight Dosing Start Date: 06/27/23 Status: Ordered Start: 05-26-2023 End: 05-31-2023 take 1 tablet by mouth every eight hours Zanaflex 4 mg Tab 4 mg = 1 tab(s), Oral, q8hr, X 5 day(s), # 15 tab(s), Refills(s) 0, Pharmacy: [facility] #[id number], 160, cm, 05/26/23 19:39:00 EST, Height/Length Dosing, 120, kg, 05/26/23 19:39:00 EST, Weight Dosing Start Date: 05/26/23 Stop Date: 05/31/23 Status: Ordered traMADol hydrochloride 50 mg oral tablet (10 sources) Opioid Agonist Start: 05-15-2023 take 1 tablet by mouth every six hours Tramadol Active 50 MG PO Every 6 hours 11 10May 15, 2023 1:00am Dispense quantity of twenty tablets. Dx code s63.601A right thumb sprain Start: 01-18-2021 take 1 tablet by wei th every eight hours as needed traMADol HCl 50 MG 1 tablet as needed Orally every 8 hours as needed Dec, Active Zofran ODT 4 mg Tab-Dis (20 sources) Start: 06-22-2023 take 1 tablet by mouth every eight hours as needed for nausea Zofran ODT 4 mg Tab-Dis 4 mg = 1 tab(s), Oral, q8hr, PRN Nausea/Vomiting, # 12 tab(s), Refills(s) 0, Pharmacy: [facility]/pharmacy #[id number], 160, cm, 06/22/23 14:24:00 EDT, Height/Length Dosing, 118.5, kg, 06/22/23 14:24:00 EDT, Weight Dosing Start Date: 06/22/23 Status: Ordered Start: 05-14-2023 take 1 tablet by wie th three times daily Zofran ODT 4 mg Tab-Dis 4 mg = 1 tab(s), Oral, TID, # 15 tab(s), Refills(s) 0, Pharmacy: [facility]/pharmacy #[id number], 160, cm, 05/14/23 10:27:00 EST, Height/Length Dosing, 115, kg, 05/14/23 10:27:00 EST, Weight Dosing Start Date: 05/14/23 Status: Ordered Start: 04-30-2023 take 1 tablet by wei th every eight hours Zofran ODT 4 mg Tab-Dis 4 mg = 1 tab(s), Oral, q8hr, # 12 tab(s), Refills(s) 0, Pharmacy: [facility]/pharmacy #[id number], 160, cm, 04/30/23 17:09:00 EST, Height/Length Dosing, 114, kg, 04/30/23 17:09:00 EST, Weight Dosing Start Date: 04/30/23 Status: Ordered Start: 01-02-2023 take 1 tablet by wei th every eight hours as needed for nausea Zofran ODT 4 mg Tab-Dis 4 mg = 1 tab(s), Oral, q8hr, PRN Nausea/Vomiting, # 12 tab(s), Refills(s) 0, Pharmacy: [facility]/pharmacy #[id number], 160, cm, 01/02/23 16:09:00 EDT, Height/Length Dosing, 114.2, kg, 01/02/23 16:09:00 EDT, Weight Dosing Start Date: 01/02/23 Status: Ordered Completed/Discontinued Medications Medication Drug Class(es) Dates Sig (Normalized) Sig (Original) acetaminophen 500 mg oral tablet (1 source) Start: 08-09-2023 End: 08-09-2023 acetaminophen (TYLENOL EXTRA STR) tablet 1,000 mg Start: 08-09-2023 End: 08-09-2023 acetaminophen (TYLENOL EXTRA STR) tablet 1,000 mg azithromycin 250 mg oral tablet (20 sources) Macrolide Antimicrobial Start: 02-09-2020 End: 06-30-2020 take 2-5 tablets by mouth once daily Azithromycin (Zithromax Z-Ian) 250 mg tablet Discontinued 0 PO .COMPLEX February 09, 2020 1:00am June 30, 2020 3:39pm take 500 mg today (day 1), then 250 mg for 4 days (days 2-5) benzonatate 200 mg oral capsule (20 sources) Non-narcotic Antitussive Start: 07-24-2021 End: 01-21-2022 take 200 mg by mouth three times daily Benzonatate Discontinued 200 MG PO Three times daily October 18, 2021 12:00am January 21, 2022 8:15pm cephalexin 500 mg oral capsule (20 sources) Cephalosporin Antibacterial Start: 12-10-2022 End: 01-04-2023 take 500 mg by mouth every eight hours Cephalexin Discontinued 500 MG PO Q8H 21 December 10, 2022 12:00am January 04, 2023 3:19pm Start: 08-29-2017 End: 04-01-2018 take 1 capsule by mouth every six hours Cephalexin (Keflex) 500 mg capsule Discontinued 500 MG PO Q6H 40 August 29, 2017 12:00am April 01, 2018 8:03pm cetirizine hydrochloride 10 mg oral tablet (20 sources) Histamine-1 Receptor Antagonist Start: 10-11-2022 End: 11-29-2022 take 10 mg by mouth once daily Cetirizine Discontinued 10 MG PO Daily October 11, 2022 12:00am November 29, 2022 3:26pm clindamycin 150 mg oral capsule (20 sources) Lincosamide Antibacterial Start: 07-02-2021 End: 01-21-2022 take 450 mg by mouth three times daily Clindamycin Hcl Discontinued 450 MG PO Three times daily 90 July 02, 2021 12:00am January 21, 2022 8:16pm Start: 06-30-2020 End: 11-27-2020 take 300 mg by mouth every eight hours Clindamycin Hcl Discontinued 300 MG PO Q8H 30 June 30, 2020 12:00am November 27, 2020 6:42pm Start: 05-10-2020 End: 06-30-2020 take 300 mg by mouth every six hours Clindamycin Hcl Discontinued 300 MG PO Q6H 40 May 10, 2020 1:00am June 30, 2020 3:39pm Start: 01-13-2018 take 2 capsules by m outh four times daily clindamycin 150 mg Cap 300 mg = 2 cap(s), Oral, QID, # 80 cap(s), Refills(s) 0 Start Date: 01/13/18 Status: Ordered Start: 02-01-2017 End: 02-11-2017 take 150 mg by mouth four times daily Clindamycin Hcl Discontinued 150 MG PO Four times daily 40 February 01, 2017 1:00am February 11, 2017 1:03am gabapentin 300 mg oral capsule (20 sources) Anti-epileptic Agent Start: 11-12-2022 End: 06-01-2023 take 300 mg by mouth three times daily Gabapentin Discontinued 300 MG PO Three times daily November 16, 2022 12:00am June 01, 2023 2:54pm hydrOXYzine hydrochloride 25 mg oral tablet (16 sources) Antihistamine Start: 07-17-2023 End: 11-14-2023 hydrOXYzine hydrochloride 25 mg Tab 25 mg = 1 tab(s), Oral, QID, PRN for anxiety, may take 2 at night, 1-2 times daily, X 30 day(s), # 120 tab(s), Refills(s) 3, Pharmacy: [facility]/pharmacy #[id number], 160, cm, 07/17/23 8:06:00 EDT, Height/Length Dosing, 116.8, kg, 07/17/23 8:06:00 EDT, Weight Dosing Start Date: 07/17/23 Stop Date: 11/14/23 Status: Ordered 1 ml ketorolac tromethamine 30 mg/ml injection (20 sources) Nonsteroidal Anti-inflammatory Drug, Cyclooxygenase Inhibitor Start: 06-15-2023 End: 06-15-2023 ketorolac (Toradol) injection 30 mg Start: 04-28-2023 take 1 tablet by wei th every six hours as needed ketorolac (TORADOL) 10 mg tablet Take 1 Tab by mouth every 6 hours as needed for up to 30 doses 30 Tab 0 04/28/2023 Active Start: 04-27-2023 End: 04-27-2023 ketorolac (TORADOL) injectio n 15 mg Start: 06-16-2022 End: 08-26-2022 take 10 mg by mouth every six hours Ketorolac Discontinued 10 MG PO Q6H June 16, 2022 12:00am August 26, 2022 3:39pm levoFLOXacin 750 mg oral tablet (20 sources) Quinolone Antimicrobial Start: 02-03-2022 End: 03-29-2022 take 750 mg by mouth once daily Levofloxacin Discontinued 750 MG PO Daily 12 01February 03, 2022 1:00am March 29, 2022 2:25pm Multivitamin preparation (20 sources) Start: 06-30-2020 End: 11-27-2020 Multivitamin Discontinued CAP June 29, 2020 11:00pm November 27, 2020 5:42pm Start: 06-30-2020 End: 11-27-2020 Multivitamin Discontinued CA P June 30, 2020 12:00am November 27, 2020 6:42pm nabumetone 750 mg oral tablet (20 sources) Nonsteroidal Anti-inflammatory Drug Start: 10-02-2022 End: 10-07-2022 take 750 mg by mouth twice daily Nabumetone Discontinued 750 MG PO Twice daily October 02, 2022 12:00am October 07, 2022 12:25pm naproxen 500 mg oral tablet (20 sources) Nonsteroidal Anti-inflammatory Drug Start: 07-26-2023 take 1 tablet by mouth twice daily naproxen 500 mg Tab 500 mg = 1 tab(s), Oral, BID, Take one tab by mouth two times a day, # 14 tab(s), Refills(s) 0, Pharmacy: [facility]/pharmacy #[id number], 160, cm, 07/26/23 11:12:00 EDT, Height/Length Dosing, 116.8, kg, 07/26/23 11:12:00 EDT, Weight Dosing Start Date: 07/26/23 Status: Ordered Start: 02-22-2023 take 1 tablet by wei th twice daily as needed for pain Naprosyn 500 mg Tab 500 mg = 1 tab(s), Oral, BID, PRN for pain, # 20 tab(s), Refills(s) 0, Pharmacy: [facility]/pharmacy #[id number], 160, cm, 04/02/23 21:48:00 EST, Height/Length Dosing, 110, kg, 04/02/23 21:48:00 EST, Weight Dosing Start Date: 04/02/23 Status: Ordered Start: 12-23-2022 take 1 tablet by wei th twice daily as needed for pain naproxen 500 mg Tab 500 mg = 1 tab(s), Oral, BID, PRN for pain, # 20 tab(s), Refills(s) 0, Pharmacy: [facility]/pharmacy #[id number], 160, cm, 12/23/22 17:18:00 EDT, Height/Length Dosing, 113.8, kg, 12/23/22 17:18:00 EDT, Weight Dosing Start Date: 12/23/22 Status: Ordered Start: 07-18-2016 End: 11-28-2022 take 500 mg by mouth twice daily at mealtime Naproxen Discontinued 500 MG PO Twice daily October 26, 2022 12:00am November 11, 2022 3:38pm administer with food or milk nitrofurantoin, macrocrystals 25 mg / nitrofurantoin, monohydrate 75 mg oral capsule (20 sources) Nitrofuran Antibacterial Start: 10-10-2021 End: 01-21-2022 take 1 capsule by mouth twice daily at mealtime Nitrofurantoin Monohyd/M-Cryst (Macrobid) 100 mg capsule Discontinued 100 MG PO Twice daily 10 October 10, 2021 12:00am January 21, 2022 8:16pm must administer with a meal/food omeprazole 40 mg delayed release oral capsule (20 sources) Proton Pump Inhibitor Start: 02-03-2022 End: 08-26-2022 take 40 mg by mouth once daily Omeprazole Discontinued 40 MG PO Daily February 03, 2022 1:00am August 26, 2022 3:39pm take 1 capsule by [facility] twice daily at mealtime omeprazole (PRILOSEC) 20 MG capsule Take 20 mg by mouth 2 times daily (with meals). 0 Active 2 ml orphenadrine citrate 30 mg/ml injection (1 source) Muscle Relaxant Start: 06-15-2023 End: 06-15-2023 orphenadrine (Norflex) injection 60 mg penicillin v potassium 500 mg oral tablet (20 sources) Start: 01-21-2022 End: 02-03-2022 take 500 mg by mouth every six hours Penicillin V Potassium Discontinued 500 MG PO Q6H 28 January 21, 2022 12:00am February 03, 2022 8:57pm QUEtiapine 50 mg oral tablet (20 sources) Atypical Antipsychotic Start: 02-01-2017 End: 04-01-2018 take 100 mg by mouth once daily Quetiapine Discontinued 100 MG PO Daily February 01, 2017 1:00am April 01, 2018 8:03pm sertraline 50 mg oral tablet (20 sources) Serotonin Reuptake Inhibitor Start: 07-18-2016 End: 04-01-2018 take 50 mg by mouth once daily Sertraline Discontinued 50 MG PO Daily February 01, 2017 1:00am April 01, 2018 8:03pm simethicone 250 mg oral capsule (20 sources) Start: 03-14-2022 End: 09-05-2022 take 250 mg by mouth once daily Simethicone Discontinued 250 MG PO Daily 09 28March 14, 2022 1:00am September 05, 2022 3:33pm sucralfate 1000 mg oral tablet (20 sources) Aluminum Complex Start: 03-17-2022 End: 09-05-2022 take 1 tablet by mouth twice daily Sucralfate (Carafate) 1 gram tablet Discontinued 1 GM PO Twice daily March 17, 2022 1:00am September 05, 2022 3:33pm sulfamethoxazole 800 mg / trimethoprim 160 mg oral tablet (20 sources) Dihydrofolate Reductase Inhibitor Antibacterial, Sulfonamide Antimicrobial Start: 04-01-2018 End: 04-11-2018 take 1 tablet by mouth twice daily Sulfamethoxazole- Trimethoprim (Bactrim Ds) 800-160 mg tablet Discontinued 1 TAB PO Twice daily April 01, 2018 1:00am April 11, 2018 8:03pm topiramate 100 mg oral tablet (20 sources) Start: 01-21-2022 End: 06-01-2023 take 1 tablet by mouth twice daily Topiramate (Topamax) 100 mg tablet Discontinued 100 MG PO Twice daily January 21, 2022 12:00am June 01, 2023 2:55pm Start: 01-21-2022 take 100 mg by mouth once sha y Topiramate Active 100 MG PO Daily January 21, 2022 12:00am triamcinolone acetonide 10 mg/ml injectable suspension (2 sources) Corticosteroid Start: 05-20-2023 End: 05-20-2023 triamcinolone acetonide (Kenalog) injection 5 mg Payers Date Payer Category Payer Unknown [id number] 08-15-2023 Worker's Compensation [id number] 05-24-2023 Unknown [id number] 07-16-2022 [facility] [id number] 2.16.840.1.391296.19 04-25-2022 Medicaid [id number]. [id number] .[id number] 04-25-2022 Unknown 1977 Unknown [id number] 2.16.840.1.619876.3.579.2 .593 1977 Unknown [id number] 2.16.840.1.486395.3.579.2 .593 1977 Unknown [id number] 2.16.840.1.230428.3.579.2 .1069 1977 Unknown [id number] 2.16.840.1.666065.3.579.2 .1244 1977 Unknown [id number] 2.16.840.1.227731.3.579.2 .1244 1977 Unknown [id number] 2.16.840.1.421395.3.579.2 .1244 1977 Unknown [id number] 2.16.840.1.042701.3.579.2 .1244 1977 Unknown [id number] 2.16.840.1.466629.3.579.2 .1244 1977 Unknown [id number] 2.16.840.1.186450.3.579.2 .196 1977 Unknown [id number] 2.16.840.1.957527.3.579.2 .196 1977 Unknown [id number] 2.16.840.1.163062.3.579.2 .718 1977 Unknown [id number] 2.16.840.1.999267.3.579.2 .176 1977 Unknown [id number] 2.16.840.1.183926.3.579.2 .727 1977 Unknown [id number] 2.16.840.1.177044.3.579.2 .727 1977 Unknown [id number] 2.16.840.1.019863.3.579.2 .727 1977 Unknown [id number] 2.16.840.1.798889.3.579.2 .727 1977 Unknown [id number] 2.16.840.1.790161.3.579.2 .727 1977 Unknown [id number] 2.16.840.1.587443.3.579.2 .727 1977 Unknown [id number] 2.16.840.1.694899.3.579.2 .1977 Unknown [id number] 2.16.840.1.118935.3.579.2 1977 Unknown [id number] 2.16.840.1.088437.3.579.2 1977 Unknown [id number] 2.16.840.1.260471.3.579.2 1977 Unknown [id number] 2.16.840.1.281161.3.579.2 1977 Unknown [id number] 2.16.840.1.775799.3.579.2 1977 Unknown [id number] 2.16.840.1.762678.3.579.2 1977 Unknown [id number] 2.16.840.1.186441.3.579.2 1977 Unknown [id number] 2.16.840.1.569917.3.579.2 1977 Unknown [id number] 2.16.840.1.065849.3.579.2 1977 Unknown [id number] 2.16.840.1.844115.3.579.2 1977 Unknown [id number] 2.16.840.1.766374.3.579.2 1977 Unknown [id number] 2.16.840.1.798963.3.579.2 1977 Unknown [id number] 2.16.840.1.368935.3.579.2 1977 Unknown [id number] 2.16.840.1.059340.3.579.2 1977 Unknown [id number] 2.16.840.1.421117.3.579.2 1977 Unknown [id number] 2.16.840.1.577837.3.579.2 1977 Unknown [id number] 2.16.840.1.311415.3.579.2 1977 Unknown [id number] 2.16.840.1.164219.3.579.2 1977 Unknown [id number] 2.16.840.1.503405.3.579.2 1977 Unknown [id number] 2.16.840.1.356596.3.579.2 1977 Unknown [id number] 2.16.840.1.900764.3.579.2 1977 Unknown [id number] 2.16.840.1.313998.3.579.2 1977 Unknown [id number] 2.16.840.1.571912.3.579.2 1977 Unknown [id number] 2.16.840.1.651976.3.579.2 1977 Unknown [id number] 2.16.840.1.878573.3.579.2 1977 Unknown [id number] 2.16.840.1.918614.3.579.2 1977 Unknown [id number] 2.16.840.1.514498.3.579.2 1977 Unknown [id number] 2.16.840.1.570891.3.579.2 1977 Unknown [id number] 2.16.840.1.859340.3.579.2 1977 Unknown [id number] 2.16.840.1.876326.3.579.2 1977 Unknown [id number] 2.16.840.1.967702.3.579.2 .72 1977 Unknown [id number] 2.16.840.1.066533.3.579.2 1977 Unknown [id number] 2.16.840.1.701930.3.579.2 .72 1977 Unknown [id number] 2.16.840.1.797793.3.579.2 1977 Unknown [id number] 2.16.840.1.616691.3.579.2 1977 Unknown [id number] 2.16.840.1.119381.3.579.2 1977 Unknown [id number] 2.16.840.1.257977.3.579.2 1977 Unknown [id number] 2.16.840.1.382051.3.579.2 1977 Unknown [id number] 2.16.840.1.732541.3.579.2 1977 Unknown [id number] 2.16.840.1.635062.3.579.2 1977 Unknown [id number] 2.16.840.1.997676.3.579.2 1977 Unknown [id number] 2.16.840.1.802147.3.579.2 1977 Unknown [id number] 2.16.840.1.724696.3.579.2 1977 Unknown [id number] 2.16.840.1.121658.3.579.2 1977 Unknown [id number] 2.16.840.1.162128.3.579.2 1977 Unknown [id number] 2.16.840.1.010169.3.579.2 1977 Unknown [id number] 2.16.840.1.158463.3.579.2 .727 1977 Unknown [id number] 2.16.840.1.790087.3.579.2 .727 1977 Unknown [id number] 2.16.840.1.067957.3.579.2 .727 1977 Unknown [id number] 2.16.840.1.642126.3.579.2 .72 1977 Unknown [id number] 2.16.840.1.827031.3.579.2 .727 1977 Unknown [id number] 2.16.840.1.723053.3.579.2 .72 1977 Unknown [id number] 2.16.840.1.337705.3.579.2 .72 1977 Unknown [id number] 2.16.840.1.903731.3.579.2 .72 1977 Unknown [id number] 2.16.840.1.108015.3.579.2 .727 1977 Unknown [id number] 2.16.840.1.199587.3.579.2 .72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 02-02-2020 Episodic Residual codes; unclassified (1 source) Asymptomatic menopausal state Episodic Residual codes; unclassified (1 source) Left against medical advice; Translations: [Procedure and treatment not carried out due to patient leaving prior to being seen by health care provider] Onset: 3 Episodic Residual codes; unclassified (16 sources) Chronic back pain 07-17-2023 Episodic Screening and history of mental health and substance abuse codes (17 sources) Patient encounter status; Translations: [Encounter for screening for depression] Episodic Skull and face fractures (20 sources) Fracture of tooth ; Translations: [Fracture of tooth (traumatic), initial encounter for closed fracture] 06-30-2020 Episodic Spondylosis; intervertebral disc disorders; other back problems (20 sources) Degeneration of lumbar intervertebral disc; Translations: [Other intervertebral disc degeneration, lumbar region] Onset: 2 Resolved: 2 Chronic Spondylosis; intervertebral disc disorders; other back problems (2 sources) Spondylosis; intervertebral disc disorders; other back problems Onset: 4 Sprains and strains (20 sources) Sprain of ankle; Translations: [Sprain of unspecified ligament of right ankle, initial encounter] Onset: 4 11-27-2020 Episodic Substance-related disorders (20 sources) Smoker; Translations: [Nicotine dependence, unspecified, uncomplicated] Onset: 3 07-18-2016 Chronic Comment on above: Added secondary to d ocumentation in Social History. Substance-related disorders (9 sources) Continuous opioid dependence; Translations: [Opioid use, unspecified, uncomplicated] Onset: 3 01-15-2023 Episodic Superficial injury; contusion (4 sources) Superficial injury of trunk; Translations: [Contusion of lower back and pelvis, initial encounter] Onset: 3 Episodic Unclassified (3 sources) Fitting and adjustment of other gastrointestinal appliance and device; Translations: [Fitting and adjustment of other gastrointestinal appliance and device] Unclassified (1 source) CONTACT W/AND (SUSP) EXPOS COVID-19; Translations: [CONTACT W/AND (SUSP) EXPOS COVID-19] Onset: 2 Unclassified (6 sources) Low back pain, unspecified; Translations: [Low back pain, unspecified] Onset: 3 Unclassified (16 sources) Drug therapy finding 07-17-2023 Unclassified (20 sources) Patient encounter status 07-17-2023 Unclassified (1 source) Pain in right wrist; Translations: [Pain in right wrist] Onset: 4 Unclassified (1 source) Pain in left shoulder; Translations: [Pain in left shoulder] Onset: 4 Unclassified (1 source) Other low back pain; Translations: [Other low back pain] Onset: 3 Unclassified (1 source) Low back pain, unspecified; Translations: [Low back pain, unspecified] Onset: 3 Unclassified (1 source) Trochanteric bursitis, left hip; Translations: [Trochanteric bursitis, left hip] Onset: 3 Unclassified (1 source) Other intervertebral disc degeneration, lumbar region; Translations: [Other intervertebral disc degeneration, lumbar region] Onset: 3 Unclassified (1 source) Encounter for screening for osteoporosis; Translations: [Encounter for screening for osteoporosis] Onset: 3 Urinary tract infections (20 sources) Urinary tract infectious disease; Translations: [Urinary tract infection, site not specified] 10-10-2021 Episodic Viral infection (20 sources) Disease caused by 2019-nCoV; Translations: [COVID-19] Onset: 3 10-18-2021 Episodic Viral infection (16 sources) Disease caused by 2019-nCoV Onset: 3 07-17-2023 Past or Other Problems Problem Classification Problem Date Documented Da te Episodic/Chronic Abdominal pain (20 sources) Right upper quadrant pain; Translations: [Right upper quadrant pain] Onset: 01-31-2014 11-13-2021 Episodic Allergic reactions (2 sources) Allergy status to penicillin; Translations: [Urticaria, unspecified] Onset: 10-04-2022 Episodic Fracture of upper limb (19 sources) Closed fracture of trapezoidal bone of wrist; Translations: [Displaced fracture of trapezoid [smaller multangular], right wrist, initial encounter for closed fracture] Onset: 05-11-2023 Episodic Nonspecific chest pain (1 source) Chest pain, unspecified; Translations: [Chest pain, unspecified] Onset: 09-22-2022 Episodic Other aftercare (3 sources) Other prison (current) drug therapy; Translations: [[employer] CURRENT DRUG THERAPY] Onset: 10-19-2021 Episodic Other connective tissue disease (1 source) Pain in right lower limb; Translations: [Pain in right leg] Onset: 11-12-2022 Episodic Other gastrointestinal disorders (1 source) Diarrhea, unspecified; Translations: [DIARRHEA UNSPECIFIED] Onset: 09-15-2021 Episodic Other nervous system disorders (1 source) Anesthesia of skin; Translations: [Anesthesia of skin] Onset: 12-09-2022 Episodic Other non-traumatic joint disorders (1 source) Pain in left hip Onset: 02-15-2021 Resolved: 02-15-2021 Episodic Other upper respiratory infections (3 sources) Streptococcal sore throat; Translations: [Strep pharyngitis] Episodic Residual codes; unclassified (3 sources) Insomnia; Translations: [Insomnia] Episodic Spondylosis; intervertebral disc disorders; other back problems (20 sources) Radiculopathy, lumbar region; Translations: [Low back pain] Onset: 02-15-2021 Resolved: 02-15-2021 Episodic Unclassified (4 sources) Other low back pain; Translations: [Other low back pain] Unclassified (1 source) Other low back pain M54.59 Onset: 03-30-2021 Resolved: 03-30-2021 Unclassified (1 source) Acute left-sided low back pain, unspecified whether sciatica present M54.50 Unclassified (14 sources) Myofascial low back pain; Translations: [Other low back pain] Unclassified (11 sources) Onset: 01-15-2023 Resolved: 06-05-2023 01-15-2023 Unclassified (3 sources) Low back pain, unspecified; Translations: [Low back pain, unspecified] Onset: 01-22-2023 Procedures Date Procedure Procedure Detail Performing Clinician Start: 08-21-2023 XR tomography Unspecified body region Tiff Story MD Work Phone: Start: 08-21-2023 PULSE OXIMETRY, CONTINUOUS Joe miller MD Work Phone: Start: 08-21-2023 VERAB/VERIFY SALBADOR Adams MD Work Phone: Start: 08-21-2023 PULSE OXIMETRY, SPOT Chirag Chinchilla terrence 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[employer] Work Phone: Start: 08-02-2023 EXTRA URINE CASTRO TUBE CHIDI YUEN Start: 08-02-2023 URINALYSIS WITH REFLEX CULTURE AND MICROSCOPIC CHIDI YUEN Start: 08-02-2023 Basic metabolic 2000 panel - Serum or Plasma CHIDI YUEN Start: 08-02-2023 CBC panel - Blood by Automated count CHIDIKARINA YUEN Start: 08-02-2023 COAGULATION SCREEN CHIDI YUEN Start: 08-02-2023 STAPHYLOCOCCUS AUREUS/MRSA COLONIZATION, CULTURE CHIDIKARINA YUEN Start: 08-02-2023 TYPE AND SCREEN CHIDIKARINA YUEN Start: 08-02-2023 REQUEST FOR PRE-ADMISSION TESTING VISIT CHIDI YUEN Start: 06-17-2023 Hepatic function 2000 panel - Serum or Plasma CHIDI YUEN Start: 06-01-2023 Computed tomography of abdomen and pelvis with contrast ELIZABETH Ferrell Work Phone: Start: 06-01-2023 Plain chest X-ray ELIZABETH Ferrell Work Phone: Start: 05-20-2023 HAND/UPPER EXTREMITY INJECTION/ARTHROCENTESIS ANTONIO HUSAIN Start: 05-20-2023 XR WRIST RIGHT 3+ VIEWS ANTONIO HUSAIN Start: 05-20-2023 Arthrocentesis aspir&/inj small jt/bursa w/o us Belkis Hernandez DO Work Phone: Start: 04-19-2023 LIVER ELASTOGRAPHY CHIDI YUEN Start: 04-12-2023 Plain X-ray of left shoulder Start: 04-01-2023 [id number] CHIDI ALEXANDRAWendy Start: 04-01-2023 ALPHA-FETOPROTEIN CHIDI ALEXANDRAWendy Start: 04-01-2023 BEATRIZ-WITH REFLEX TO JESUS CHIDI ALEXANDRAWendy Start: 04-01-2023 ANTI-MITOCHONDRIAL ANTIBODY CHDII Nguyen Start: 04-01-2023 ANTI-SMOOTH MUSCLE ANTIBODY CHIDI Nguyen Start: 04-01-2023 Bilirubin.indirect [Mass/volume] in Serum or Plasma CHIDI YUEN Start: 04-01-2023 CBC W Auto Differential panel - Blood CHIDI YUEN Start: 04-01-2023 CERULOPLASMIN CHIDI YUEN Start: 04-01-2023 Comprehensive metabolic 2000 panel - Serum or Plasma CHIDI YUEN Start: 04-01-2023 Ferritin [Mass/volume] in Serum or Plasma CIHDI YUEN Start: 04-01-2023 HCV PCR WITH GENOTYPE REFLEX CHIDI HUDSON Start: 04-01-2023 HEPATITIS A ANTIBODY, TOTAL CHIDI Nguyen Start: 04-01-2023 HEPATITIS B CORE ANTIBODY, TOTAL CHIDI YUEN Start: 04-01-2023 HEPATITIS B SURFACE ANTIBODY CHIDI HUDSON Start: 04-01-2023 HEPATITIS B SURFACE ANTIGEN CHIDI Nguyen Start: 04-01-2023 HEPATITIS C GENOTYPE CHIDI YUEN Start: 04-01-2023 HIV 1/2 ANTIGEN/ANTIBODY SCREEN WIH REFLEX TO CONFIRMATION CHIDI YUEN Start: 04-01-2023 IRON AND TIBC CHIDI YUEN Start: 04-01-2023 PHOSPHATIDYLETHANOL (PETH), WHOLE BLOOD, QUANTITATIVE CHIDI YUEN Start: 04-01-2023 PROTIME-INR CHIDI YUEN Start: 02-13-2023 HEPATITIS C ANTIBODY CHIDI YUEN Start: 02-13-2023 HEPATITIS C RNA, QUANTITATIVE, PCR CHIDI YUEN Start: 02-13-2023 US ABDOMEN LIMITED LIVER ANTONIO HUSAIN Start: 02-13-2023 Us abdominal real time w/image limited Antonio Husain [employer] Work Phone: Start: 01-15-2023 DRUG SCREEN, URINE WITH REFLEX TO CONFIRMATION ANTONIO SOCORRO Start: 12-28-2022 X-ray of lumbar spine, six views including bending views Services [employer] [facility] [email or web address] Phone: Start: 12-12-2022 Injection of spinal epidural space Services [employer] Work Phone: Start: 12-09-2022 X-ray of lumbar spine, four or more views Services [employer] [facility] [email or web address] Phone: Start: 11-28-2022 Injection of spinal epidural space [facility] [employer] Phone: Start: 11-17-2022 X-ray of lumbar spine, two or three views [employer] Phone: Start: 11-06-2022 Plain X-ray of left hip [employer] Phone: Start: 10-31-2022 MR lumbar spine wo con [facility] [employer] Phone: Start: 10-16-2022 CT of lumbar spine without contrast [employer] Phone: Start: 09-19-2022 Injection of local anesthetic into sacroiliac joint [employer] Phone: Start: 09-11-2022 X-ray of lumbar spine, four or more views [employer] Phone: Start: 09-10-2022 Dual energy X-ray absorptiometry [employer] Phone: Start: 08-09-2022 X-ray of lumbar spine, six views including bending views [employer] Phone: Start: 03-30-2022 End: 03-30-2022 Colonoscopy [employer] Phone: Start: 03-19-2022 CT of abdomen and pelvis without contrast [employer] Phone: Start: 03-19-2022 SARS-CoV-2, Influenza & RSV (PCR) [facility] [employer] Phone: Start: 03-14-2022 Computed tomography of abdomen and pelvis with contrast [facility] [employer] Phone: Start: 03-14-2022 Screening for occult blood in feces [facility] Phone: Start: 02-03-2022 CT of abdomen and pelvis without contrast [facility] Phone: Start: 02-03-2022 Urine culture [facility] Phone: Start: 12-20-2021 Plain X-ray of left shoulder Services [facility] [email or web address] Phone: Start: 11-13-2021 Computed tomography of abdomen and pelvis with contrast Services [facility] Work Phone: Start: 10-18-2021 Plain chest X-ray Services [facility] Work Phone: Start: 10-09-2021 Computed tomography of abdomen and pelvis with contrast Services [facility] Work Phone: Start: 03-25-2010 Hysterectomy Cheyanne Rosas History of cholecystectomy L annette Skaggs Other History of cholecystectomy E marcos Rosas Hysterectomy Dagoberto Romero Hysterectomy Cheyanne Rosas lap x 7 Dagoberto Romero Tonillectomy with adenoids N jewell Romero Urine culture Services [facility] Work Phone: Results Test Name Value Interpretation Reference Range Facility XR SACRUM COCCYX 2+ VIEWSon 09-19-2023 XR SACRUM COCCYX 2+ VIEWS Interpreted By: Susie Brennan, STUDY: XR SACRUM COCCYX 2+ VIEWS; 09/19/2023 1:13 pm INDICATION: Signs/Symptoms:fall. COMPARISON: None. ACCESSION NUMBER(S): [id number] ORDERING CLINICIAN: GERMAINE DIAZ FINDINGS: Three views of the sacrum/coccyx obtained. No focal disruption of the sacral or coccygeal contours to suggest acute displaced fracture. Sacral neural arches are grossly intact and symmetric. SI joints are grossly symmetric. Presumed tubal ligation clips overlying the upper pelvis. IMPRESSION: No evidence of acute displaced sacral or coccygeal fracture. MACRO: None. Signed by: Susie Brennan 09/19/2023 1:41 PM Dictation workstation: [id number] [facility] Family Medicine Office/Clini c Noteon 09-17-2023 Family Medicine Office/Clinic Note Normal [facility] Comment on above: Result Comment: Elec tronically Signed By: Pankaj MILES, Dax Salguero\.br\Date and Time Signed: 09/17/23 18:07 EDT Patient Educationon 09-17-19 Patient Education Normal [facility] HCV RNA panel LINDSEY+probeon HCV RNA LINDSEY+probe [Log units/Vol] Normal [facility] Comment on above: Order Comment: Repor table Range: 15-100,000,000 IU/mL.The javier HCV is an in vitro nucleic acid amplification test for both the detection and quantitation of hepatitis C virus (HCV) RNA, in human EDTA plasma or serum, of HCV antibody positive or HCV-infected individuals on the javier [employer]/8800 Systems. Dual probes are used to detect and quantify, but notdiscriminate HCV genotypes 1-6. Though rare, mutations within the highly conserved regions of a viral genome covered by javier HCV may affect primer and/or probe binding resulting in the under-quantitation of virus or failure to detect the presence of virus.The analytical quantification range of this assay has been determined to be 15 to 100,000,000 IU/ml in plasma. If the assay DETECTED the presence of the virus but was not able to accurately quantify the number of copies, the test result will be reported as <15 Detected or >100,000,000 Detected .The javier HCV is intended for use as an aid in the diagnosis of HCV infection in the following populations: individuals with antibody evidence of HCV with evidence of liver disease, individuals suspected to be actively infected with HCV antibody evidence, and individuals at risk for HCV infection with antibodies to HCV. Detection of HCV RNA indicates that the virus is replicating and therefore is evidence of active infection. The javier HCV is intended for use as an aid in the management of HCV infected patients undergoing anti-viral therapy. The assay can be used to measure HCV RNA levels at baseline, during treatment, at the end of treatment, and at the end of follow up of treatment todetermine sustained or non-sustained viral response. The results must be interpreted within the context of all relevant clinical and laboratory findings.This test is approved by the [place] Food and Drug Administration, and its performance characteristics verified by the [facility] Laboratory, Department of Pathology, [facility]. Result Comment: Not calculated Performed By: #### 5 7021-8 #### SHWETA ROCHA ([id number]) [facility] ([facility]) [address] [place] [address] [place] [address] HCV RNA LINDSEY+probe Qn Not detected Normal Not detected [facility] Comment on above: Order Comment: Repor table Range: 15-100,000,000 IU/mL.The javier HCV is an in vitro nucleic acid amplification test for both the detection and quantitation of hepatitis C virus (HCV) RNA, in human EDTA plasma or serum, of HCV antibody positive or HCV-infected individuals on the javier [employer]/8800 Systems. Dual probes are used to detect and quantify, but notdiscriminate HCV genotypes 1-6. Though rare, mutations within the highly conserved regions of a viral genome covered by javier HCV may affect primer and/or probe binding resulting in the under-quantitation of virus or failure to detect the presence of virus.The analytical quantification range of this assay has been determined to be 15 to 100,000,000 IU/ml in plasma. If the assay DETECTED the presence of the virus but was not able to accurately quantify the number of copies, the test result will be reported as <15 Detected or >100,000,000 Detected .The javier HCV is intended for use as an aid in the diagnosis of HCV infection in the following populations: individuals with antibody evidence of HCV with evidence of liver disease, individuals suspected to be actively infected with HCV antibody evidence, and individuals at risk for HCV infection with antibodies to HCV. Detection of HCV RNA indicates that the virus is replicating and therefore is evidence of active infection. The javier HCV is intended for use as an aid in the management of HCV infected patients undergoing anti-viral therapy. The assay can be used to measure HCV RNA levels at baseline, during treatment, at the end of treatment, and at the end of follow up of treatment todetermine sustained or non-sustained viral response. The results must be interpreted within the context of all relevant clinical and laboratory findings.This test is approved by the US Food and Drug Administration, and its performance characteristics verified by the [facility], Department of Pathology, [facility]. Performed By: #### 5 7021-8 #### SHWETA ROCHA ([id number]) [facility] ([facility]) [address] [place] [address] 50198 Hepatic function 2000 panelo n 09-16-2023 Albumin BCP dye [Mass/Vol] 4.1 g/dL Normal 3.4-5.0 [facility] Comment on above: Performed By: #### 5 7021-8 #### SHWETA ROCHA ([id number]) [facility] ([facility]) [address] [place] [address] 53345 ALP [Catalytic activity/Vol] 96 U/L Normal 33-110 [facility] Comment on above: Performed By: #### 5 7021-8 #### SHWETA ROCHA ([id number]) [facility] ([facility]) [address] [place] [address] 45795 ALT With P-5'-P [Catalytic activity/Vol] 21 U/L Normal 7-45 [facility] Comment on above: Result Comment: Katia ents treated with Sulfasalazine may generate falsely decreased results for ALT. Performed By: #### 5 7021-8 #### SHWETA ROCHA ([id number]) [facility] ([facility]) [address] [place] [address] 57608 AST With P-5'-P [Catalytic activity/Vol] 17 U/L Normal 9-39 [facility] Comment on above: Performed By: #### 5 7021-8 #### SHWETA ROCHA ([id number]) [facility] ([facility]) [address] [place] [address] 12755 Bilirubin [Mass/Vol] 0.2 mg/dL Normal 0.0-1.2 [facility] Comment on above: Performed By: #### 5 7021-8 #### SHWETA ROCHA ([id number]) [facility] ([facility]) [address] [place] [address] 27944 Bilirubin.direct [Mass/Vol] 0.1 mg/dL Normal 0.0-0.3 [facility] Comment on above: Performed By: #### 5 7021-8 #### SHWETA ROCHA ([id number]) [facility] ([facility]) [address] [place] [address] 32885 Protein [Mass/Vol] 6.7 g/dL Normal 6.4-8.2 [facility] Comment on above: Performed By: #### 5 7021-8 #### SHWETA ROCHA ([id number]) [facility] (C) [address] [place] [address] 16870 XR ELBOW RIGHT 3+ VIEWSon XR ELBOW RIGHT 3+ VIEWS STUDY: Elbow Radiographs; 09/16/2023 4:48 PM INDICATION: Injury to the right elbow. COMPARISON: None Available. ACCESSION NUMBER(S): [id number] ORDERING CLINICIAN: GERMAINE BLAIR TECHNIQUE: Five view(s) of the right elbow. FINDINGS: There is no displaced fracture. The alignment is anatomic. No soft tissue abnormality is seen. There is no joint effusion. IMPRESSION: No acute bony abnormalities. Signed by Johan Connor MD [facility] Coding Summary.on 09-12-2023 Coding Summary. Normal [facility] Provider Letteron 09-12-2023 Provider Letter [facility] Discharge Instructionson Discharge Instructions [id number]#1.00TIF F [facility] MRI Spine Lumbar w/o Contras ton 09-10-2023 MRI Spine Lumbar w/o Contrast Normal [facility] RAD - Preliminary Cat Scan R eporton 09-10-2023 RAD - Preliminary Cat Scan Report [id number]#1.00TIF F [facility] Consent for Treatmenton 08-23 Consent for Treatment [id number]#1.00TIF F Normal [facility] ED Clinical Summaryon 2023 ED Clinical Summary Normal [facility] ED Note-Physicianon 09-09-19 ED Note-Physician Normal [facility] Comment on above: Result Comment: Elec tronically Signed By: Landon Tidwell PA-C.br\Date and Time Signed: 09/09/23 23:52 EDT\.br\Electronically Co-Signed By: Dokken DO, Kaylinn A\.br\Date and Time Co-Signed: 09/09/23 23:54 EDT ED Patient Education Noteon 09-09-2023 ED Patient Education Note Normal [facility] ED Patient Summaryon 024 ED Patient Summary Normal [facility] RAD - MRI Screening Formon 0 09-09-2023 RAD - MRI Screening Form [id number]#1.00TI FF Normal [facility] ED Clinical Summaryon 2023 ED Clinical Summary Normal [facility] ED Note-Physicianon 09-07-19 ED Note-Physician Normal [facility] Comment on above: Result Comment: Elec tronically Signed By: Zhane Castro PA-C\.br\Date and Time Signed: 09/07/23 00:11 EDT\.br\Electronically Co-Signed By: Pedro Pablo Fletcher DO\.br\Date and Time Co-Signed: 09/07/23 01:06 EDT ED Patient Education Noteon 09-07-2023 ED Patient Education Note Normal [facility] ED Patient Summaryon 024 ED Patient Summary Normal [facility] Consent for Treatmenton 08-23 Consent for Treatment [id number]#1.00TIF F [facility] Consent for Treatmenton 08-23 Consent for Treatment [id number]#1.00TIF F [facility] Discharge Instructionson Discharge Instructions [id number]#1.00TI FF Normal [facility] ED Clinical Summaryon 2023 ED Clinical Summary Normal [facility] ED Note-Physicianon 09-02-19 ED Note-Physician [facility] Comment on above: Result Comment: Elec tronically Signed By: Jorge Mcintosh DO\.br\Date and Time Signed: 09/02/23 18:33 EDT ED Patient Education Noteon 09-02-2023 ED Patient Education Note Normal [facility] ED Patient Summaryon 024 ED Patient Summary Normal [facility] Progress Note-Nurseon 2023 Progress Note-Nurse left with [facility]jazmine [facility] Consent for Treatmenton Consent for Treatment [id number]#1.00TIF F Normal [facility] Discharge Instructionson Discharge Instructions [id number]#1.00TI FF Normal [facility] ED Clinical Summaryon 2023 ED Clinical Summary Normal Osbaldo lopez [facility] ED Note-Nursingon 08-30-2023 ED Note-Nursing pt states she is mitra ng driven home by her who is at bedside Normal [facility] ED Note-Physicianon 08-30-19 ED Note-Physician Normal [facility] Comment on above: Result Comment: Elec tronically Signed By: April Krueger PA-C\.br\Date and Time Signed: 08/30/23 19:02 EDT\.br\Electronically Co-Signed By: Nikhil Tubbs DO\.br\Date and Time Co-Signed: 08/30/23 19:48 EDT ED Patient Education Noteon 08-30-2023 ED Patient Education Note Normal [facility] ED Patient Summaryon 024 ED Patient Summary Normal [facility] Coding Summaryon 08-27-2023 Coding Summary HTMLBase 64 GuitsbsuUUb2jYo+PGhlYWQ+ QA4ARJKhZ84wdYLkpV4fN9YQ TElOSywgQVBQTElOSyIgbmFt ST5bcQYyWXAk IC8+IE7yAXRgRyxqvMVkk3X3 wIA0K17rfw6vSDsirTS8WZSi ChTgqomif4bmyPc5XNthDctq OyBt UQAynP72GUA2gD92Eq86pLAt nWOau3svyIq4ZwNhBPWrTSZ7 eCrxCUixf5MeSRXoC51jkGMu c2U6 CVMwkQdqwSFpSsFvmBO5uI7n ALynavqnk9pzroovVji5xm09 qQLdw9N2fHA3G9EsurT8HJCp bGQg BamknHBIkF1kgtraa3rrvnsu NvGdXLGbAOb9DYw0MTQqcZxw SgUhQU68GYA3FDXbifRqD5Av LWFs kNdnBxA5f1A9Oq5OC3EMZeaz E1HDYHZMAAoliJC+XP74gk44 W7BuHtoqUgy7ARNaVSS3oPV5 aD0n OEUqKRkjl3I8oEM6U6BupkTx sl4nd0ahIPKqZBcnX15awTOc s1X2XVRbzMA3SGWlwCdfLsPr aG93 Oyc+MOSdrRikl8WnHvkfe8xx u7djhPh6XejnWKKbxzQwpNbl BJQ7f8VjTp4sKQRmwPU9kUU1 aD0i WfIcXfO4EZfqY383RdMdyVFc GfgbS58rG6KjmDO+PHRyPjx0 FAOiaApdYO8mZ8BmPYMwclhl bGVm gZfnHQ6wQEZsoxkrEFCcxK6a LFZeB4t5RrQgAwJ5VLmzB4Eb YOHpxpmeZt21tU7sFgCgPsM8 MGlu T5NiwaN8ZYLsbWUtJSynSQV3 R84gc4H6LWKjARPcHEG5jRA9 wL5xdUogqfllfPAqeWjzrgFi dGlj FTkcENguY667QKOuvZomUhQb ZGluZyBEYXRlOiAgMDYvMDQv MjAyNDwvdGQ+EIFqNCP8oMxg PSAn eHTfGDttDb8jeEelrFekJD3z FDGdedizMNWbaL7oWLYlhTUm hHnvRW4nFSJmhhxnz712SfWy MHB0 MBUqyANeB8WxsP5dIpLtQTJm SUJaH8RvqLPaNSfpP494DFbt LpT0OIJfufShD3KuICAzeUtc OiB0 t5D7Bi9Cj4OfjmmdA6HsyUKx VvKoIfhsWMq6O1VjPuaqlLZ+ QQ05XTTnLO15YYr7RWI2vYdr PSdi PRDkE1SfaN7pLpTgTCFkUCIf Oyc+PHRhYmxlIHdpZHRoPScx GWObShEarSroES1xHk7eHXQe LWNv iLdmaWRaDhAat3wzAVOtMJjr OO1ejYbrG6ErkHG1DQFye7o0 Sa56W01pQ9EogNE+PGNvbCB3 aWR0 lZ2lMsRgKpE1QGiwA720CqTc cGQvDbinn5usj1fptLn4LoC2 PXRvwvCzqAroZPN4e2NeDp73 Y29s IHdpZHRoPSIxNSUiIHZhbGln ee7puK6cEb1+QZImjGR1gXV9 pN3mYbZjPrO9JRkoD860XwSd cCIv Pcmrg9sxh8izrIy8ZkBbTURr llWexWsdAHF5o1JoLd86L9Si aFztl6RsMhf5qi34lOCxu7A0 bGU9 W0NiSRNlonojtSZizNztEM6j CDNuqnbdCKJdtW4bTEGcL5i1 IdMkEpK6SIfkB1NqvaO8VWYl bGQg VERgxKGWmP9ponzor9nzzsqu PrKhPJDzGBr3JMf5SXIniMpa TpFaSXH4LsM6IEP3ePZueG8w bGln jufskX8vGvw+MYI4jDXymXOJ BG1uWkgojTW+THGfJRW4rPzm TDvzNJJmcI9pMICsD1o9QmEk LjA1 ETxwK8EbtvF4FTImwXJaWWSj nNXVlT8fibmba6wrwopiIaOl LDUyGMp3WGt2AKBprMsjYiVl ZWZ0 FqT5JQQ1pZYelQ6jdGgritgp iX0qRhz+CwqpyTghHDO9ZAc4 U8XcCyn1BXLstLadDT9ziWAm ZGlu Fx3tzAleeQgjCU7mJHSdpgpl j353MxQij6xcXPKgeTXrSGng HHX3N32ak4P0JHXzZIPsZZM2 dGV4 hM6xqHkvgkmszNDttVdnjcRd uFvdZVbqWEceB291SPOqaEdj OvGaEZm1B8YeOof5ECSkdJvf ZT0n iUAjUMsrOc2znJjgzGkbGN1k AFDuotldp394HoLls3qiSDFb iAVpVVhxJIO8L44fu3C9EHNj MDAw MJY5dQL5pF9tzLhlldxzgLLn dNomoxSexDnzJPveICdeS641 UPKvcQowAfKaxJs6Y1McNms2 ZCBz rJvhJU3fsPMvNEnyXc3fdYno lFetTD1pTGStdbobl912WwQj k2jbRNCkvTUoISfpBDN6Q79i b3I6 XDBvDIOpJFK6rRH3cO8zmKig bjogbGVmdDsgdmVydGljYWwt IYnjR113USMjvNzsPhHnnXol bnQg GHyaXQn1P8TdGyotfAB+PC90 XXZfPA61cWDnoQLnr5ivbPp2 YsEoAYTnJRE1jZekSYrrf2Tk ZXIt K31okFRve6H3NLHdeAzbnUGa CmIfmCV3gN6rTOxciasjv9at onmnMfgco8lfdl02rV90H24p IHdp QAEpJLXfJRQdUTWanYdrll3z nA0oMu6+CDDxxLT6lGX0cI7m PBWmVsD3IGlmB880ZcDnoCQs Pjxj j7hlw6ckvSm4OjL8RLQxrwEr pZzzAPZ9m0KmWd99T55tSZcb YDXrQXHwBLRpOGLtcOptct2s dG9w Ii8+IAMjpYS1bJB0wF2uNvRh ScA0CEcrP178HfGfhBPfKkiw P67cH5JtxUK+EUMbWmk6WCFo dHls NP2foCMmQWivIe0kKSJ9RxDb HxYkFJxkS3IhCNYkkvwbhbfs cCQ1CYGyYAJyiA44Sn6xcNni MTBw xCXOgS2odilrs3jhboyhMoOi FCDpTOl3JRc4OUQcbPdpYwYc OKW0PvJ0CCT8sTFicS7rlXlg bjog bN4qR5YsYVLydwisBl31zN3s QjYnDhQ0GPdhBwc+TElFQiwg JWXIGMRBFIFDRtmNOeP0F6Xg Pjx0 LPDgbFtfZK3ycDQcHGzlIk6h sKxfbAnvTB3fPPMhxysqZAAy rK6hDWUvzUIfwGoiVC3kNGMg bjtm i432HyKkBHV0JQYnpIXlZ0Zp mG5sUqVfYKBvESJjD0VolQHy ICdeN342AMpiMcO0WXNagfSd Y2Fs LHErsOwoZmY6y9J4Gx6wUf6x GU1tEUq2YA18GL20zNAdz2U3 qCS5Z1WcVHThiqyivwzpvOQ8 IDAu DNAoxF25zOYyUXimUm2xz7U8 a985VVUuSUNgfE10Qs1jlLdp BIEryTZVpQ2xathes2vekvdm IzAw EIIkAJm4CKg1MAWmnYvfVvZw XZE6FiC1GJS8lBPtuW9wsLiz oghedZ7qHug+NDYgWWVhcnM8 L3Rk Ovu8DVYloDxsCJ9fmNJnDDrn Bx6xfUuypTrsZU3fSWPgpwxj EPSusE4nMPWfnHCfvNppLE7f NTBp vqjtw107CkIkEHP3OMWwsQBw Q7EisT3bUaXtUVZkYTGlA1Kx oDPeXOfvN158DHgmVfP8DEDw cnRp L6GiUDWwgRjhPaJ5u3O3Sl1S HN2LANK7T4JzQdp8XOPgqSkk WT9mvEQyCWpbWm2jcHsqoGlp MC4w TMEuxiwyYVTioC5pFKWkzPDx ySykNE2kXHQzuidrz548MjRi CFC9VRAcrXMkB3IdoG0aZwJg MDAw PDReR3YhaDPhNZsdD537KOlw GgU4HASszgJmG4YoESXfuZdg GmL8n0J8Kd1HsYEcJ8UsS8s4 L3Rk PjwvdHI+FB42CTLnOI13xYFs aBTbu9autWd4CnKrHNJtYZN0 aHqgUZzeo8UgTACzJ14nlPCs c2U6 AHEzgRiftZCcTyYgpVG8cI8f WFfkzgjdt5dcoxsgTdsbl9lc kb37rL69U68zNUnlBZBsXTCl MCUi IOHjaSbooc5zaN0vPr2+PGNv fPC5aLJ2sU6vMgAiBuG8EJhi A294MtYiaUTlYrcqr9yzf9cr dGg9 JsLkGEUegbNftLpbFQY8x2Oj Rv59O87vOIchNXMvWUMvWYYj ZKUpzXrwfl9rzG4vPm3+PC9j b2xn ih88oE51wIG+AAEkGNX9mLfh ALrcUVZoaK5oAUelShE5FLPd DgDwaE82hRNmKBmyBt6thIuq dDog NZ9aROOqoixuh514XmYhc4gs IZSyiEKjCPogQFW4L98sl8A0 IIXoEFBoHJQ2hEL2iM0lvBhk bjog bGVmdDsgdmVydGljYWwtYWxp N657QOCzyIedCuBvxGWoB9rc osAUOL3uZlcslAV+PHRkIHN0 eWxl GJegGFRyoB6kEJZcV2v4QbEb XpO0OUkgV1ZabcO3NELweXOe ZBEunMKFhZ0ocsljo9irdypn IzAw LAPzPWs7AZx3OTYfkJvuOsBw NYO8AmK8AGD5kWUpcH3gmRot jrixuW8vFkt+RklOOjwvdGQ+ PHRk DMM1tQxcPUejQNXvcV2wZVTp O3k1MaAaTfR3WIswG9PtfiO2 WGUgbQKqXHZmhETPbK5esvir b2xv gxkoJgMaWIJbCYd5ESz2EFUf jMwrUlLdUWX1OvU0INY7xOBr mM5ssVzezznzlV5ySgg+TVJO Ojwv dGQ+GFRhHZI8oUmqRSguNPWw wS3fQYZmT4h8TmJmIrL1RLou N1EgcjV5RFAvaMGsAFIrqLGR aW1l vlody3zeyclqDuElHUMvXPh0 HGc4KUCriJgpKjDjFMD4YoJ5 YJG0kYSdmS2xeBmclsprhX8s Oyc+ AND9PCZ7UD74RJ11H0HwCgbv dGFibGU+PHRhYmxlIHdpZHRo YPgzIQVzDzPzhNtbXF7mWm5l ZGVy LWN (more content not included)... [facility] FL FLUORO IMAGES NO CHARGEon 08-21-2023 FL FLUORO IMAGES NO CHARGE These images are not reportable by radiology and will not be interpreted by Radiologists. [facility] VERAB/VERIFY ABORHon 024 ABO group Nom (Bld) O Normal [facility] Comment on above: Performed By: #### 5 902-2 #### JOLENE Cantu ([id number]) [facility] ([facility]) [address] [place] [address] D Ag Ql (Bld) Positive [facility] Comment on above: Performed By: #### 5 902-2 #### JOLENE Cantu ([id number]) [facility] ([facility]) [address] [place] [address] Verify ABO/Rh Group Test (VE RAB)on 08-21-2023 ABO group Nom (Bld) O [facility] D Ag Ql (Bld) Positive [facility] XR tomography Unspecified diana dy regionon 08-21-2023 These images are not reportable by radiology and will not be interpreted by Radiologists. IMAGING ED Clinical Summaryon 2023 ED Clinical Summary [facility] Emergency Department [address] [place] [address] ED Clinical Summary PERSON INFORMATION Name: JERAD TRACY Age: 48 Years Sex: FEMALE : 1975 MRN: Acct#: Visit Reason: Back pain; FELL , LOWER BACK PAIN Arrival: 08/17/2023 15:31:41 Discharge: 08/17/2023 17:29:00 LOS: 000 01:58 Check In: 08/17/2023 15:31:41 Checkout:08/17/2023 17:29:00 Address: [address] [place] [id number] PCP: Cheyanne Mckeon PROVIDER INFORMATION Provider Role Assigned Unassigned Peter Chavez DO ED Provider 08/17/2023 16:07:25 Gayla Miranda ANGLE BENDER Nurse 08/17/2023 16:08:50 VITALS INFORMATION Vital Sign Triage Latest Temperature Tympanic Temperature Temporal Artery Pulse Rate O2 Sat 100 % 100 % Respiratory Rate 16 br/min 16 br/min Blood Pressure /78 mmHg /78 mmHg MEDICAL INFORMATION Medications Given: Medication Dose Route acetaminophen-oxycodone (acetaminophen-oxycodone 325 mg-5 mg oral tablet) 1 tab(s) Oral Allergy Information: HYDROcodone; penicillin PHYSICIAN DOCUMENTATION Patient: JERAD TRACY Age: 48 years Sex: FEMALE : 1975 Associated Diagnoses: Acute lumbosacral myofascial strain Author: Peter Chavez DO Basic Information Additional information: Chief Complaint from Nursing Triage Note : Chief Complaint 08/17/2023 16:01 EDT Chief Complaint Pt. C/O of back pain due to tripping over a hose. . History of Present Illness 48-year-old female to the emergency department chief complaint of low back pain. Patient states she has a history of bulging and herniated disc at her L4-L5 area. Patient supposed to have surgery at [facility] next [facility]. Patient tripped over a hose and fell when she did she twisted her lower back denies any blunt trauma. No changes to bowel movements or bladder function. The injury happened approximately 3 hours ago. Patient states numbness and tingling down her legs which is normal for her no new or unusual symptoms. Patient states that she is currently out of her pain medication. Denies head injury or loss of consciousness no neck pain Review of Systems Constitutional symptoms: Negative except as documented in HPI. Skin symptoms: Negative except as documented in HPI. Eye symptoms: Negative except as documented in HPI. ENMT symptoms: Negative except as documented in HPI. Respiratory symptoms: Negative except as documented in HPI. Cardiovascular symptoms: Negative except as documented in HPI. Gastrointestinal symptoms: Negative except as documented in HPI. Genitourinary symptoms: Negative except as documented in HPI. Musculoskeletal symptoms: Back pain, Muscle pain. Neurologic symptoms: Negative except as documented in HPI. Health Status Allergies: Allergic Reactions (Selected) Unknown HYDROcodone- No reactions were documented. Penicillin- No reactions were documented.. Medications: (Selected) Inpatient Medications Ordered acetaminophen-oxycodone 325 mg-5 mg oral tablet: 1 tab(s), Oral, Once Documented Medications Documented FLUoxetine: 60 mg, Oral, Daily, 0 Refill(s) cyclobenzaprine: 0 Refill(s). Past Medical/ Family/ Social History Medical history: No active or resolved past medical history items have been selected or recorded.. Surgical history: No active procedure history items have been selected or recorded.. Family history: No family history items have been selected or recorded.. Social history: Social & Psychosocial Habits Alcohol 08/17/2023 Alcohol Use: Never Substance Use 08/17/2023 Substance use: Never Tobacco 08/17/2023 Smoking tobacco use: Current everyday tobacco Number used per day: 1/2 ppd Electronic Cigarette/Vaping 08/17/2023 Electronic Cigarette Use: Never . Problem list: Active Problems (1) Tobacco user . Physical Examination Vital Signs Vital Signs 08/17/2023 16:01 EDT Temperature Oral 36.7 DegC Heart Rate Monitored 75 bpm Respiratory Rate 16 br/min Systolic Blood Pressure 131 mmHg Diastolic Blood Pressure 78 mmHg SpO2 100 % Oxygen Therapy Room air . Measurements 08/17/2023 16:01 EDT Height 161 cm Weight 114.31 kg Weight Dosing 114.310 kg Body Mass Index Measured 44.1 kg/m2 . General: Alert, no acute distress, Appears uncomfortable with movement.. Skin: Warm, dry. Head: Normocephalic, atraumatic. Neck: Supple. Eye: Pupils are equal, round and reactive to light, normal conjunctiva. Cardiovascular: Regular rate and rhythm, No murmur. Respiratory: Lungs are clear to auscultation, respirations are non-labored. Genitourinary: No CVA tenderness. Back: Examination of the lower back shows no redness warmth or signs of infection no swelling bruising or signs of trauma no obvious spasm. No step-offs noted. Patient with tenderness midline mid to lower lumbar spine and upper aspect of the sacrum. Mostly tender to the right paraspinal musculat (more content not included)... Normal [facility] ED Note - Physicianon 2023 ED Note - Physician Patient: GINI TRACY SA Age: 48 years Sex: FEMALE : 1975 Associated Diagnoses: Acute lumbosacral myofascial strain Author: Peter Chavez DO Basic Information Additional information: Chief Complaint from Nursing Triage Note : Chief Complaint 08/17/2023 16:01 EDT Chief Complaint Pt. C/O of back pain due to tripping over a hose. . History of Present Illness 48-year-old female to the emergency department chief complaint of low back pain. Patient states she has a history of bulging and herniated disc at her L4-L5 area. Patient supposed to have surgery at [facility] next month. Patient tripped over a hose and fell when she did she twisted her lower back denies any blunt trauma. No changes to bowel movements or bladder function. The injury happened approximately 3 hours ago. Patient states numbness and tingling down her legs which is normal for her no new or unusual symptoms. Patient states that she is currently out of her pain medication. Denies head injury or loss of consciousness no neck pain Review of Systems Constitutional symptoms: Negative except as documented in HPI. Skin symptoms: Negative except as documented in HPI. Eye symptoms: Negative except as documented in HPI. ENMT symptoms: Negative except as documented in HPI. Respiratory symptoms: Negative except as documented in HPI. Cardiovascular symptoms: Negative except as documented in HPI. Gastrointestinal symptoms: Negative except as documented in HPI. Genitourinary symptoms: Negative except as documented in HPI. Musculoskeletal symptoms: Back pain, Muscle pain. Neurologic symptoms: Negative except as documented in HPI. Health Status Allergies: Allergic Reactions (Selected) Unknown HYDROcodone- No reactions were documented. Penicillin- No reactions were documented.. Medications: (Selected) Inpatient Medications Ordered acetaminophen-oxycodone 325 mg-5 mg oral tablet: 1 tab(s), Oral, Once Documented Medications Documented FLUoxetine: 60 mg, Oral, Daily, 0 Refill(s) cyclobenzaprine: 0 Refill(s). Past Medical/ Family/ Social History Medical history: No active or resolved past medical history items have been selected or recorded.. Surgical history: No active procedure history items have been selected or recorded.. Family history: No family history items have been selected or recorded.. Social history: Social & Psychosocial Habits Alcohol 08/17/2023 Alcohol Use: Never Substance Use 08/17/2023 Substance use: Never Tobacco 08/17/2023 Smoking tobacco use: Current everyday tobacco Number used per day: 1/2 ppd Electronic Cigarette/Vaping 08/17/2023 Electronic Cigarette Use: Never . Problem list: Active Problems (1) Tobacco user . Physical Examination Vital Signs Vital Signs 08/17/2023 16:01 EDT Temperature Oral 36.7 DegC Heart Rate Monitored 75 bpm Respiratory Rate 16 br/min Systolic Blood Pressure 131 mmHg Diastolic Blood Pressure 78 mmHg SpO2 100 % Oxygen Therapy Room air . Measurements 08/17/2023 16:01 EDT Height 161 cm Weight 114.31 kg Weight Dosing 114.310 kg Body Mass Index Measured 44.1 kg/m2 . General: Alert, no acute distress, Appears uncomfortable with movement.. Skin: Warm, dry. Head: Normocephalic, atraumatic. Neck: Supple. Eye: Pupils are equal, round and reactive to light, normal conjunctiva. Cardiovascular: Regular rate and rhythm, No murmur. Respiratory: Lungs are clear to auscultation, respirations are non-labored. Genitourinary: No CVA tenderness. Back: Examination of the lower back shows no redness warmth or signs of infection no swelling bruising or signs of trauma no obvious spasm. No step-offs noted. Patient with tenderness midline mid to lower lumbar spine and upper aspect of the sacrum. Mostly tender to the right paraspinal musculature in that area but no tenderness at sciatic region. No calf swelling or tenderness neurovascularly intact distally.. Musculoskeletal: No swelling, no deformity. Neurological: Alert and oriented to person, place, time, and situation, normal speech observed. Lymphatics: No lymphadenopathy. Psychiatric: Cooperative. Medical Decision Making Differential Diagnosis: Back pain, lumbar strain, disc herniation, sciatica, spinal stenosis, urinary tract infection, chronic back pain, vertebral fracture, renal stone. Lumbosacral spine X-ray: X-rays interpreted by me as showing no gross deformity or malalignment. Mild degenerative changes. No obvious fracture. Reexamination/ Reevaluation 48-year-old female with history of chronic low back pain and scheduled for surgery next month to the emergency department after twisting her back and having worsened pain earlier today. X-rays were obtained and interpreted by me as showing no obvious signs of acute bony abnormality. Patient was given a p.o. Percocet in the emergency department. Discussed x-ray findings and need for close (more content not included)... Normal [facility] ED Patient Summaryon 024 ED Patient Summary [facility] - Emergency Department [address] [place] [id number] PATIENT DISCHARGE INSTRUCTIONS Patient Information Name: JERAD TRACY Age: 48 Years Date of : 1975 [facility]: [id number] Reason For Visit: Back pain; FELL , LOWER BACK PAIN Arrival Time: 08/17/2023 15:31:41 Primary Care Physician: Cheyanne Mckeon Attending Physician: Peter Chavez DO Comment: Visit Diagnosis: Diagnoses This Visit Acute lumbosacral myofascial strain (S39.012A) Back pain ([id number]) The Pharmacy at [facility] is open Saturday through Saturday from 9A to 6P and Saturday and Saturday from 9A to 5P Prescription Information: If you have been given a prescription for narcotics, seek immediate medical attention if you have any difficulty breathing or any sudden status changes such as confusion and sleepiness. If you or anyone you know is experiencing suicidal thoughts, mental health, alcohol and/or drug addiction problems; contact the [facility] 15/10 Crisis Hotline -Text 5KZHD kz 740492. If you received any narcotics, sedation, or any other medication that causes drowsiness for the next 24 hours, unless otherwise directed: ? Do not drive a car. ? Do not operate machinery such as power tools, lawn mowers, drills, sewing machines, or stoves ? Avoid alcoholic beverages and drugs for allergies, nerves, or sleep ? Do not make important personal or business decisions or sign any legal documents With: Address: When: Call your back surgeon first thing on Saturday and make them aware you were in the emergency department. Follow-up as directed Within 3 to 5 days Comments: Call for follow up appointment Return for wound check Medication Information: The exam and treatment you received today in the [facility] Emergency Department were for an urgent problem and are not intended as complete care. It is important for you to follow up with a doctor, nurse practitioner, or physician?s assistant professor of surgery for ongoing care. If your symptoms become worse or you do not improve as expected and you are unable to reach your usual health care provider, you should return to the Emergency Department, we are available 24 hours a day. For those patients who have received Radiology results, the interpretation of your X-ray as given to you by our Emergency Department physician is only a preliminary report. The Radiologist will review your films and if there is a change in the diagnosis you will be notified by phone. Please make sure you have provided a working phone number so we can reach you if necessary. In the event that you had a lab culture while you were a patient in the Emergency Department, you will be notified by phone if there is a need to change your antibiotic. Please make sure you have provided a working phone number so we can reach you if necessary. [facility] Emergency Department has provided you with a complete list of medications post discharge. Please inform your drafting clerk/provider of your visit and for further instruction on these medications. Any specific questions regarding your chronic medications and dosages should be discussed with your primary care physician(s) and/or pharmacist. New Medications Printed Prescriptions oxyCODONE (oxyCODONE 5 mg oral capsule) 1 cap(s) Oral (given by mouth) every 6 hours. as needed for pain. Refills: 0. Additional medications on your home medication list not specifically addressed. Please contact the ordering physician if you have questions about these medications. cyclobenzaprine FLUoxetine 60 Milligram Oral (given by mouth) every day. Visit Information Allergies: Substance Reaction Symptoms Type Comments HYDROcodone Drug penicillin Drug Vital Signs: Vitals and Measurements this Visit (last charted value for your 08/17/2023 visit) Vital Signs This Visit Temperature Oral: 36.7 DegC Heart Rate Monitored: 75 bpm Respiratory Rate: 16 br/min Systolic Blood Pressure: 131 mmHg Diastolic Blood Pressure: 78 mmHg SpO2: 100 % Oxygen Therapy: Room air Measurements This Visit Height/Length Measured: 161 cm Weight Measured: 114.31 kg Weight Dosin.310 kg Body Mass Index: 44.1 kg/m2 Problems List: Problem Onset Comments Tobacco user Patient Education Chronic Pain, Adult Chronic pain is a type of pain that lasts or keeps coming back for at least 3?6 months. You may have headaches, pain in the abdomen, or pain in other areas of the body. Chronic pain may be related to an illness, injury, or a health condition. Sometimes, the cause of chronic pain is not known. Chronic pain can make it hard for you to do daily activities. If it is not treated, chronic pain can lead to anxiety and depression. Treatment depends on the cause of your pain and how severe it is. You may need to work with a pain specialist to come up with a treatme (more content not included)... Normal [facility] XR Spine Lumbosacral 2 or 3 Viewson 08-17-2023 XR Spine Lumbosacral 2 or 3 Views IMAGES REVIEWED: XR Spine Lumbosacral 2 or 3 Views COMPARISON: 06/25/2023. CLINICAL INDICATION: fall, twisted lower back FINDINGS/IMPRESSION: 1. No radiographic evidence of acute osseous abnormality of the lumbar spine. 2. Moderate degenerative disc disease at L4-L5 and lower lumbar facet arthropathy again seen. 3. Recent MRI with left lateral recess narrowing at L4-L5, moderate bilateral foraminal narrowing at L4-L5 and on the right at L5-S1. Final Dictated by: Manuel Doll MD Dictated DT/TM: 08/17/23 5:39 Signed (Electronic Signature): Manuel Doll MD 08/17/23 5:42 pm Technologist: Wendy TRAN [facility] CT Head or Brain w/o Contras ton 08-16-2023 CT Head or Brain w/o Contrast Normal [facility] CT Spine Cervical w/o Contra ston 08-16-2023 CT Spine Cervical w/o Contrast Normal [facility] Discharge Instructionson Discharge Instructions [id number]#1.00T IFF Normal [facility] ED Clinical Summaryon 2023 ED Clinical Summary Normal [facility] ED Clinical Summary (Inserted Image. Darlene ble to display) [place] [id number] ED Clinical Summary Person Information Name: Jerad Tracy/[facility] Age: 48 Years : 1975 Sex: Female PCP: Unavailable, Physician Marital Status: Phone: Race: White Ethnicity: Not or Language: Malaysian Visit Reason: Back pain; back pain Acuity: 4 Enc Type: Emergency Med Service: Emergency Medicine Arrival: 08/16/2023 15:20:16 Discharge: 08/16/2023 16:38:00 LOS: 000 01:18 Checkin: 08/16/2023 15:20:16 Checkout: 08/16/2023 16:38:00 Dispo Type: Home or Self Care Address: [facility] [id number] Provider Notes: Diagnosis: 1:Chronic back pain Problems No Problems Documented Smoking Status: Smoking Status 10 or more cigarettes (1/2 pack or more)/day in last 30 days Functional Status: Sensory Deficits: History of Falls: Mobility Assistance Prior to Admission: ADLs: Current Level of Assistance for Self-Care/Mobility: Cognitive Status: Allergies HYDROcodone (hives) penicillin (hives) Laboratory or Other Results This Visit (last charted value for your 08/16/2023 visit) No Laboratory or Other Results This Visit Measurements: Height: Weight: 115 kg Blood Pressure: /104 mmHg BMI: Procedures No Procedures Documented Immunizations No Immunizations Documented This Visit Final Med List: Medications that have not changed Other Medications dicyclomine (Bentyl 10 mg oral capsule) 1 Capsules Oral (given by mouth) 3 times a day as needed abdominal spasms for 7 Days. Refills: 0. Last Dose: _ esomeprazole (NexIUM 20 mg oral delayed release capsule) 1 Capsules Oral (given by mouth) every day. Last Dose: _ methylPREDNISolone (Medrol Dosepak 4 mg oral tablet) 1 Packets Oral (given by mouth) As Indicated for 6 Days. as directed on package labeling. Refills: 0. Last Dose: _ ondansetron (Zofran 4 mg oral tablet) 1 Tabs Oral (given by mouth) every 8 hours as needed as needed for nausea/vomiting. Refills: 0. Last Dose: _ Other Medications dicyclomine (Bentyl 10 mg oral capsule) 1 Capsules Oral (given by mouth) 3 times a day as needed abdominal spasms for 7 Days. Refills: 0. esomeprazole (NexIUM 20 mg oral delayed release capsule) 1 Capsules Oral (given by mouth) every day. methylPREDNISolone (Medrol Dosepak 4 mg oral tablet) 1 Packets Oral (given by mouth) As Indicated for 6 Days. as directed on package labeling. Refills: 0. ondansetron (Zofran 4 mg oral tablet) 1 Tabs Oral (given by mouth) every 8 hours as needed as needed for nausea/vomiting. Refills: 0. Care Team Members: Attending Physician: Daysi Yates Consulting Physician: Referring Physician: Provider Role Assigned Unassigned Daysi Yates ED MidLevel 08/16/2023 15:26:24 Follow up: With: Address: When: Specialist Comments: Follow-up with your back specialist as previously scheduled for your procedure. Try to take it easy and I would decrease how long your travel time is as this puts added pressure and stress on your back. Please return to the emergency department for new or worsening symptoms. Discharge Orders: Discharge Patient 08/16/23 16:03:00 EDT, Discharge to Home, Self, Chronic back pain Patient Education Information: Caring for Your Back Throughout the Day [facility] Poison Help line: . [facility] Hotline: [place] Tobacco Quit Line: [place], [place]) [address]: [phone] [place], [place]) [address]: [phone] [facility] [address], [place]: [phone] [facility] ED Note-Physicianon 08-16-19 ED Note-Physician Normal [facility] Comment on above: Result Comment: Elec tronically Signed By: Annette Watkins, Balbina Sparks\.rufino\Date and Time Signed: 08/16/23 03:58 EDT ED Note-Physician Chief Complaint Patient was traveling in the car from [place] and has started having lower back spasms. She believes that she was in the car too long. History of Present Illness Patient is an alert, oriented 48-year-old female presenting to the emergency department with complaints of low back pain. Patient does have chronic pain and is supposed to be having surgery soon. Patient reports that she felt like she was doing fine and was traveling over 2 hours here to visit family. Patient reports she got here and that the pain has just become excruciating. Patient reports that she just needs to be able to get back home but in the amount of pain that she is currently in does not feel that she will be able to make it back home. Her son is going to drive her home she just needs to be able to get there. Review of Systems As reviewed in the HPI. All other systems reviewed are negative or normal. Physical Exam CONSTITUTIONAL: [well appearing in no acute distress] SKIN: [Warm, dry, and intact without rash] EYES: [extraocular movements are grossly intact, clear conjunctiva] HENT: [Normocephalic, atraumatic, moist mucus membranes] NECK: [no obvious swelling, normal range of motion] PULMONARY: [normal chest rise and fall, no respiratory distress or stridor CARDIOVASCULAR: [regular rate, distal extremities are warm and well perfused] GASTROINSTESTINAL: [nondistended, non-tender] GENITOURINARY: [deferred] NEUROLOGIC: [normal speech, moves all extremities] MUSCULOSKELETAL: [Decreased range of motion of trunk, tenderness on palpation down the low back.] PSYCHIATRIC: [normal mood and affect] Vitals & Measurements T: 36.5 ?C (Oral) HR: 85 (Peripheral) RR: 18 SpO2: 94% HT: 160 cm WT: 115 kg (Dosing) Additional Vitals No qualifying data available. Procedure No qualifying data available. ASA Documentation Medical Decision Making MEDICAL DECISION MAKING Number and Complexity of Problems Differential Diagnosis: _Including but not limited to chronic back pain Treatment and Disposition ED Course: _ Patient is an alert, oriented 48-year-old female presenting to the emergency department with complaints of low back pain. Patient does have chronic pain and is supposed to be having surgery soon. Patient reports that she felt like she was doing fine and was traveling over 2 hours here to visit family. Patient reports she got here and that the pain has just become excruciating. Patient reports that she just needs to be able to get back home but in the amount of pain that she is currently in does not feel that she will be able to make it back home. Her son is going to drive her home she just needs to be able to get there. On evaluation I do note a decreased range of motion of the trunk with tenderness on palpation down the low back. With patient's complaints and patient's history and her upcoming procedure. I did go ahead and discuss treating her pain now and discharging her so that she can travel home to get started back on her current pain medication regimen. Patient is very agreeable with this plan of care. I did order for her to receive Dilaudid 2 mg IM and Toradol 30 mg IM. Did also order for Zofran ODT. Plan to discharge home with the following discharge instructions: Follow-up with your back specialist as previously scheduled for your procedure. Try to take it easy and I would decrease how long your travel time is as this puts added pressure and stress on your back. Please return to the emergency department for new or worsening symptoms. Patient verbalized understanding had no further questions or concerns. All were agreeable with this plan of care. Shared decision making: _The results of pertinent diagnostic studies and exam findings were discussed. The patient?s provisional diagnosis and plan of care were discussed with the patient and present family. The patient and/or present family expressed understanding of the diagnosis and plan. The nurse was instructed to provide written instructions and appropriate follow-up information. The patient understands their need and responsibility to obtain additional follow-up as instructed. The risks of medications administered and prescribed were discussed with the patient and family present. Code status: _Full code Assessment/Plan 1. Chronic back pain Refresh vitals and sections below: Problem List/Past Medical History Ongoing Hep C w/ coma, chronic Historical No qualifying data Medications Inpatient No active inpatient medications Home Bentyl 10 mg oral capsule, 10 mg= 1 caps, Oral, TID, PRN, Not taking Medrol Dosepak 4 mg oral tablet, 1 packets, Oral, As Indicated, as directed on package labeling, Not taking NexIUM 20 mg oral delayed release capsule, 20 mg= 1 caps, Oral, Daily Zofran 4 mg oral tablet, 4 mg= 1 tabs, Oral, q8hr, PRN, Not taking Allergies penicillin (hives) HYDROcodone (hives) Social History Alcohol Never Substance Abuse Denies All Tobacco 10 or more ciga (more content not included)... Normal [facility] ED Patient Education Noteon 08-16-2023 ED Patient Education Note Normal [facility] ED Patient Summaryon 024 ED Patient Summary Normal [facility] RAD - Preliminary Cat Scan R eporton 08-16-2023 RAD - Preliminary Cat Scan Report [id number]#1.00T IFF Normal [facility] RAD - Preliminary Cat Scan Report [id number]#1.00T IFF Normal [facility] Workers Comp Formson 024 Workers Comp Forms [id number]#1.00T IFF Normal [facility] XR Spine Lumbosacral 2 or 3 Viewson 08-16-2023 XR Spine Lumbosacral 2 or 3 Views Normal [facility] XR Spine Thoracic 3 Viewson 08-16-2023 XR Spine Thoracic 3 Views [facility] Consent for Treatmenton 07-24 Consent for Treatment [id number]#1.00TIF F [facility] Consent for Treatmenton 07-24 Consent for Treatment [id number]#1.00TI FF [facility] Consultation Noteon 08-14-19 Consultation Note Normal [facility] Comment on above: Result Comment: Elec tronically Signed By: Domenic Sher DO.br\Date and Time Signed: 08/14/23 16:33 EDT Office/Clinic Note-Physician on 08-14-2023 Office/Clinic Note-Physician [id number]#1.00TI FF Normal [facility] Patient Correspondenceon Patient Correspondence [id number] FF Normal [facility] Patient Correspondence [id number]#1.00TI FF Normal [facility] Patient History Officeon Patient History Office [id number]#1.00TI FF [facility] Consent for Treatmenton 07-24 Consent for Treatment [id number]#1.00TIF F [facility] Discharge Instructionson Discharge Instructions [id number]#1.00TI FF [facility] ED Clinical Summaryon 2023 ED Clinical Summary Normal [facility] ED Note-Nursingon 08-12-2023 ED Note-Nursing This nurse went to discharge patient and recheck vitals and patient has eloped from the department without her instructions. Normal [facility] ED Note-Physicianon 08-12-19 ED Note-Physician [facility] Comment on above: Result Comment: Elec tronically Signed By: Elisa Sánchez DO\.br\Date and Time Signed: 08/12/23 22:53 EDT ED Patient Education Noteon 08-12-2023 ED Patient Education Note [facility] ED Patient Summaryon 024 ED Patient Summary [facility] ED NOTESon 08-10-2023 [facility] Ed Note ED Note: Last filed note HNO ID: [id number] Author: Yarelis Finley RN Service: ? Author Type: Registered Nurse Filed: 08/09/23 2314 Note Text: Discharge instructions, medications and follow up discussed with patient with patient's understanding verbalized. Patient left the department in no acute distress. Normal [facility] ED PROVIDER NOTESon 08-10-19 [facility] Ed Provider Note ED Provider Note: Pepe ast filed note HNO ID: [id number] Author: Courtney Gibbs MD Service: Emergency Medicine Author Type: Resident Filed: 08/10/23 0004 Note Text: TRIAGE CHIEF COMPLAINT: Chief Complaint Patient presents with Back Pain HPI: Jerad Tracy is a 48 year old female who presents to the emergency department with lower back pain. Patient reports a history of a bulging disc at L4-L5 and states she is scheduled for surgery later this month in [place]. Patient states that she is in town visiting her cousin and because of the 3-hour drive, her back pain has been exacerbated. Patient states she typically takes Motrin for her pain but is not allowed to take NSAIDs within 2 weeks of her surgery. Patient denies loss of bowel/bladder function, saddle anesthesia, fevers, chills, IVDU, lower extremity weakness. She denies any other complaints. REVIEW OF SYSTEMS: As listed above, otherwise negative PAST MEDICAL HISTORY: History reviewed. No pertinent past medical history. CURRENT MEDICATIONS: Current Facility-Administered Medications: Lidocaine (ASPERCREME) 4 % topical patch 1 Patch, 1 Patch, Topical, Once, Courtney Gibbs MD, 1 Patch at 08/09/232222 Current Outpatient Medications: oxyCODONE-acetaminophen (PERCOCET) 5-325 mg tablet, Take 1 Tab by mouth every 6 hours as needed (pain) for up to 3 days, Disp: 12 Tab, Rfl: 0 ketorolac (TORADOL) 10 mg tablet, Take 1 Tab by mouth every 6 hours as needed for up to 30 doses, Disp: 30 Tab, Rfl: 0 gabapentin (NEURONTIN) 300 mg capsule, Take 1 Cap by mouth three times a day, Disp: , Rfl: ibuprofen (MOTRIN) 800 mg tablet, Take 1 Tab by mouth three times a day as needed for Pain, Disp: , Rfl: diazePAM (VALIUM) 5 mg tablet, Take 1 Tab by mouth three times a day, Disp: 10 Tab, Rfl: 0 SURGICAL HISTORY: History reviewed. No pertinent surgical history. FAMILY HISTORY: History reviewed. No pertinent family history. SOCIAL HISTORY: Social History Socioeconomic History Marital status: Legally Tobacco Use Smoking status: Every Day Packs/day: .5 Types: Cigarettes Smokeless tobacco: Never Substance and Sexual Activity Drug use: Never ALLERGIES: Hydrocodone-acetaminophe n and Penicillin g PHYSICAL EXAM: VITAL SIGNS: The Initial Triage assessment is as follows: ED Vitals Temp: 98 F (36.7 C) (08/09/232145) Temp Source: Oral (08/09/232145) Pulse: 84 (08/09/232145) Resp: 16 (08/09/232145) BP: 139/65 (08/09/232145) MAP: Noninvasive: 94 mmHg (08/09/232145) SpO2: 97 % (08/09/232145) Oxygen Liters Per Minute: 0 LITERS PER MINUTE (08/09/23 2320) Oxygen Source: Rm Air (08/09/23 2146) Vitals during ED course were reviewed and are as charted. Constitutional: Awake, alert. Non-toxic appearing. HENT: Normocephalic, bilateral ears without appreciable injury or deformity. External nose without appreciable injury or deformity. Moist mucous membranes. Eyes: EOMI as observed, Conjunctiva noninjected. Neck: Full ROM as observed, trachea midline. Cardiovascular: Regular rate and rhythm, No murmurs. Peripheral pulses intact. Pulmonary/Chest: Normal respiratory effort, breath sounds present bilaterally, no wheezes, rales, or rhonchi. Abdomen: Soft, non-distended, nontender, no rebound or guarding. Back: Midline lumbar tenderness palpation, no step-offs or deformities Musculoskeletal: No major deformities noted. Full ROM in all major joints as observed. No peripheral edema. Skin: Warm, dry, No erythema. No rash or lesion on visualized skin Neurologic: CN II through XII grossly intact, intact and sensation all 4 extremities. Radiology: I reviewed the radiologist interpretation: No orders to display Lab Results: Labs Reviewed - No data to display ED COURSE Pertinent Labs 48 year old female presents with lower back pain, as above. At the time of presentation, patient was hemodynamically stable, nontoxic-appearing, and in no acute distress. Patient is afebrile vital signs within supple limits. Patient does not have any red flag signs or symptoms of back pain. Neuroexam is unremarkable. Patient treated symptomatically with Tylenol, Robaxin, fentanyl, and lidocaine patch. She endorses improvement in her symptoms following these interventions. She is able to ambulate independently in the emergency department. She was determined to be safe for discharge at this time. She will be given a short course of Percocet for her pain. She is to follow-up with her spine surgeon. She was given strict return precautions and discharged home in medically stable condition. All diagnoses and treatment plans were discussed and explained to the patient and/or family at bedside. The patient/family understand and agree to our treatment plan. Patient seen with attending physician Keke Payne MD Medications Administered in the Emergency Dept: Medications Lidocaine (ASPERCREME) 4 % topical patc (more content not included)... Normal [facility] Ed Provider Note ED Provider Note: L ast filed note HNO ID: [id number] Author: Keke Payne MD Service: ? Author Type: Physician Filed: 08/09/23 3119 Note Text: [facility] Keke Payne MD Attending Physician Emergency Department Encounter Note, Attestation, and Medical Decision Making I have personally examined, evaluated, and fully participated in the care of this patient, in conjunction with the Resident Physician. I agree with the History and Physical Examination, assessment, treatment plan, medical decision making and disposition of this patient, as recorded or as will be recorded by the Resident Physician, unless specifically recorded differently in my personal documentation of this patient's emergency encounter. Furthermore, I have verified, to the best of my ability, that this patient has granted permission for visitors to be present during my history taking, physical exam and results review, including diagnosis and my impression. I was involved in the decision making of and/or medrano portions of and/or final evaluation of any procedures performed, as well as the inclusive time noted for any critical care statement. I have personally made/approved the management plan and take responsibility for the patient management. A review of systems was performed and is negative throughout except as documented by the Resident Physician or by myself below. If, for any reason, this attending note has its final electronic signature timestamp before the initial electronic signature timestamp of the Resident Physician's note, I attest that it is my usual and customary practice to confirm that the Resident Physician understands - and fully intends to implement and document - the assessment and plan that I have approved during our collaboration in this patient's emergency department care. Very pleasant 48-year-old woman presents with acute on chronic back pain, she has upcoming lumbar surgery in 2 weeks at [facility]. She just had a 3-hour car ride which has exacerbated the pain. Patient denies any trauma, fever, IV drug use, bilateral radicular symptoms, history of cancer, bowel or bladder incontinence or retention, saddle or genital anesthesia or hypoesthesia. Vitals: 08/09/232145 BP: 139/65 Pulse: 84 Resp: 16 Temp: 98 F (36.7 C) SpO2: 97% On musculoskeletal examination of the back, patient has no midline spinal tenderness to palpation. Patient has no step-off or deformity, no crepitus or fluctuance. Patient does have tenderness to palpation with a palpable knot with spasm to the right of midline in the lower lumbar distribution. Palpating this area does exacerbate the radicular pain described. No tachycardia. No respiratory distress. GCS 13. Stands and ambulates without assistance. No brock red flags for spinal cord infection or compression such as cauda equina, epidural abscess, no evidence of discitis osteomyelitis or other great pathology. Will treat symptomatically and refer the patient to her upcoming surgery in 2 weeks. Patient comfortable with this plan of care, follow-up instructions and usual return precautions. Clinical impression: Right-sided lower back pain with radicular pain Normal [facility] ED TRIAGEon 08-09-2023 [facility] Ed Triage Note ED Triage Note: Last filed note HNO ID: [id number] Author: Juan Gustafson RN Service: ? Author Type: Registered Nurse Filed: 08/09/232143 Note Text: Patient arrives through triage for complaints of chronic back pain that is worsened by a 3.[address]. Endorses history of L 4-5 disc herniation. A/O x4 with respirations even and unlabored. Normal [facility] Consent for Treatmenton 07-23 Consent for Treatment [id number]#[id number] F Normal [facility] Discharge Instructionson Discharge Instructions [id number]#1.00T IFF Normal [facility] ED Clinical Summaryon 2023 ED Clinical Summary Normal [facility] ED Note-Physicianon 08-05-19 ED Note-Physician Normal [facility] Comment on above: Result Comment: Elec tronically Signed By: Yaw MILES, Landon Govea\.br\Date and Time Signed: 08/05/23 21:19 EDT\.br\Electronically Co-Signed By: Pedro Pablo Fletcher DO\.br\Date and Time Co-Signed: 08/05/23 22:58 EDT ED Patient Education Noteon 08-05-2023 ED Patient Education Note Normal [facility] ED Patient Summaryon 024 ED Patient Summary Normal [facility] Basic metabolic 2000 panelon 08-02-2023 Anion gap [Moles/Vol] 15 mmol/L Normal 10-20 [facility] Comment on above: Performed By: #### 5 902-2 #### JOLENE RONQUILLO L ([id number]) [facility] ([facility]) [address] [place] [address] Calcium [Mass/Vol] 8.8 mg/dL Normal 8.6-10.6 [facility] Comment on above: Performed By: #### 5 902-2 #### JOLENE CASTROER L ([id number]) [facility] ([facility]) [address] [place] [address] Chloride [Moles/Vol] 105 mmol/L Normal 98-107 [facility] Comment on above: Performed By: #### 5 902-2 #### JOLENE WELSHMOTZER L ([id number]) [facility] ([facility]) [id number] [place] [address] 67872 CO2 [Moles/Vol] 24 mmol/L Normal 21-32 [facility] Comment on above: Performed By: #### 5 902-2 #### JOLENE WELSHMOTZER L ([id number]) [facility] ([facility]) [address] [place] [address] Creatinine [Mass/Vol] 0.63 mg/dL Normal 0.50-1.05 [facility] Comment on above: Performed By: #### 5 902-2 #### JOLENE WELSHMOTZER L ([id number]) [facility] ([facility]) [address] [place] [address] 95158 GFR/1.73 sq M.predicted MDRD (S/P/Bld) [Vol rate/Area] mL/min/{1.73_m2} Normal >60 [facility] Comment on above: Result Comment: Calc ulations of estimated GFR are performed using the 2020 CKD-EPI Study Refit equation without the race variable for the IDMS-Traceable creatinine methods. https://jasn.asnjournals.org/content/early/ASN.2020 189171 Performed By: #### 5 902-2 #### JOLENE Cantu ([id number]) [facility] ([facility]) [address] [place] [address] 29799 Glucose [Mass/Vol] 87 mg/dL Normal 74-99 [facility] Comment on above: Performed By: #### 5 902-2 #### JOLENE Cantu ([id number]) [facility] ([facility]) [address] [place] [address]1379 Potassium [Moles/Vol] 4.8 mmol/L Normal 3.5-5.3 [facility] Comment on above: Performed By: #### 5 902-2 #### JOLENE Cantu ([id number]) [facility] ([facility]) [id number] [place] [address]5929 Sodium [Moles/Vol] 139 mmol/L Normal 136-145 [facility] Comment on above: Performed By: #### 5 902-2 #### JOLENE Cantu ([id number]) [facility] ([facility]) [id number] [place] [address] 28890 Urea nitrogen [Mass/Vol] 10 mg/dL Normal 6-23 [facility] Comment on above: Performed By: #### 5 902-2 #### JOLENE Cantu ([id number]) [facility] ([facility]) [address] [place] [address] 33238 Blood type and Indirect anti body screen panel (Bld)on 08-02-2023 ABO group Nom (Bld) O Normal [facility] Comment on above: Performed By: #### 5 902-2 #### JOLENE Cantu ([id number]) [facility] ([facility]) [address] [place] [address] 58699 Blood group antibody screen Ql [facility] Comment on above: Performed By: #### 5 902-2 #### JOLENE Cantu ([id number]) [facility] ([facility]) [address] [place] [address] 53859 D Ag Ql (Bld) [facility] Comment on above: Result Comment: 2nd ABO test required. Order and Collect VERAB Performed By: #### 5 902-2 #### JOLENE Cantu ([id number]) [facility] ([facility]) [address] [place], [place] [address] CBC panel Auto (Bld)on 08-01 Erythrocyte distribution width (RBC) [Ratio] 12.7 % Normal 11.5-14.5 [facility] Comment on above: Performed By: #### 5 902-2 #### JOLENE Cantu ([id number]) [facility] ([facility]) [address] [place] [address] 95976 Hematocrit (Bld) [Volume fraction] 42.8 % Normal 36.0-46.0 [facility] Comment on above: Performed By: #### 5 902-2 #### JOLENE Cantu ([id number]) [facility] ([facility]) [address] [place] [address] 48308 Hemoglobin (Bld) [Mass/Vol] 14.4 g/dL Normal 12.0-16.0 [facility] Comment on above: Performed By: #### 5 902-2 #### JOLENE Cantu ([id number]) [facility] ([facility]) [address] [place] [address] 46664 MCH (RBC) [Entitic mass] 30.9 pg Normal 26.0-34.0 [facility] Comment on above: Performed By: #### 5 902-2 #### JOLENE Cantu ([id number]) [facility] ([facility]) [address] [place] [address] 79910 MCHC (RBC) [Mass/Vol] 33.6 g/dL Normal 32.0-36.0 [facility] Comment on above: Performed By: #### 5 902-2 #### JOLENE Cantu ([id number]) [facility] ([facility]) [address] [place] [address] MCV (RBC) [Entitic vol] 92 fL Normal 80-100 [facility] Comment on above: Performed By: #### 5 902-2 #### JOLENE Cantu ([id number]) [facility] ([facility]) [address] [place] [address] 25598 Nucleated RBC/100 WBC (Bld) [Ratio] 0.0 /100 WBCs Normal 0.0-0.0 [facility] Comment on above: Performed By: #### 5 902-2 #### JOLENE Cantu ([id number]) [facility] ([facility]) [address] [place] [address] 67188 Platelets (Bld) [#/Vol] 308 x10*3/uL Normal 150-450 [facility] Comment on above: Performed By: #### 5 902-2 #### JOLENE Cantu ([id number]) [facility] ([facility]) [address] [place] [address] 62507 RBC (Bld) [#/Vol] 4.66 x10*6/uL Normal 4.00-5.20 [facility] Comment on above: Performed By: #### 5 902-2 #### JOLENE Cantu ([id number]) [facility] ([facility]) [address] [place] [address] 41054 WBC (Bld) [#/Vol] 5.9 x10*3/uL Normal 4.4-11.3 [facility] Comment on above: Performed By: #### 5 902-2 #### JOLENE Cantu ([id number]) [facility] ([facility]) [address] [place] [address] Spine Lumbar w/o Contrast on 08-02-2023 CT Spine Lumbar w/o Contrast Normal [facility] Consent for Treatmenton 07-23 Consent for Treatment [id number]#1.00TIF F Normal [facility] Discharge Instructionson Discharge Instructions [id number]#1.00TI FF Normal [facility] ED Clinical Summaryon 2023 ED Clinical Summary Normal [facility]baldo [facility] ED Note-Physicianon 08-02-19 ED Note-Physician Normal [facility] Comment on above: Result Comment: Elec tronically Signed By: Landon Tidwell PA-C\.br\Date and Time Signed: 08/02/23 15:22 EDT\.br\Electronically Co-Signed By: Nikhil Tubbs DO\.br\Date and Time Co-Signed: 08/02/23 15:32 EDT ED Patient Education Noteon 08-02-2023 ED Patient Education Note Normal [facility] ED Patient Summaryon 024 ED Patient Summary Normal [facility] PT and aPTT panel Coag (PPP) on 08-02-2023 aPTT Coag (PPP) [Time] 33 s Normal 27-38 Un [facility] Comment on above: Order Comment: The A PTT is no longer used for monitoring Unfractionated Heparin Therapy. For monitoring Heparin Therapy, use the Heparin Assay. Performed By: #### 5 902-2 #### JOLENE Cantu ([id number]) [facility] ([facility]) [address] [place] [address] 64735 INR Coag (PPP) [Relative time] 1.0 Normal 0.9-1.1 [facility] Comment on above: Order Comment: The A PTT is no longer used for monitoring Unfractionated Heparin Therapy. For monitoring Heparin Therapy, use the Heparin Assay. Performed By: #### 5 902-2 #### JOLENE Cantu ([id number]) [facility] ([facility]) [address] [place] [address] 15319 PT Coag (PPP) [Time] 11.1 s Normal 9.8-12.8 [facility] Comment on above: Order Comment: The A PTT is no longer used for monitoring Unfractionated Heparin Therapy. For monitoring Heparin Therapy, use the Heparin Assay. Performed By: #### 5 902-2 #### JOLENE Cantu ([id number]) [facility] ([facility]) [address] [place] [address] 21848 Progress Note-Nurseon 2023 Progress Note-Nurse Pt leaves with ride James [facility] Staphylococcus aureus.methic illin resistant isolateon 08-02-2023 MRSA isol Org specific cx Ql (Nose) Test: Staphylococcus aureus/MRSA colonization, Culture Specimen Source: Nares/Axilla/Groin Specimen Type: Swab Specimen Date: 08/02/2023 0853 Result Date: 08/03/2023 1234 Result Status: Final result Abnormal: No Resulting Lab: [facility] [address] [place] [address] CULTURE No Staphylococcus aureus isolated Normal [facility] Comment on above: Performed By: #### 5 902-2 #### JOLENE Cantu ([id number]) [facility] ([facility]) [address] [place] [address] 05657 Urinalysis complete W Reflex Culture panel (U)on 08-02-2023 Appearance (U) Clear Normal Clear [facility] Comment on above: Performed By: #### 5 902-2 #### JOLENE Cantu ([id number]) [facility] ([facility]) [address] [place] [address] 33646 Bilirubin (U) [Mass/Vol] Negative Normal NEGATIVE [facility] Comment on above: Performed By: #### 5 902-2 #### JOLENE Cantu ([id number]) [facility] ([facility]) [address] [place] [address] 76184 Color (U) Colorless Normal Light-Yellow , Yellow, Dark-Yellow [facility] Comment on above: Performed By: #### 5 902-2 #### JOLENE Cantu ([id number]) [facility] ([facility]) [address] [place] [address] 19280 Glucose Auto test strip (U) [Mass/Vol] Normal Normal Normal [facility] Comment on above: Performed By: #### 5 902-2 #### JOLENE RONQUILLO L ([id number]) [facility] ([facility]) [address] [place] [address] 87969 Ketones (U) [Mass/Vol] Negative [facility]: Performed By: #### 5 902-2 #### JOLENE Cantu ([id number]) [facility] ([facility]) [address] [place] [address] 72955 Leukocyte esterase Auto test strip Ql (U) Negative Normal NEGATIVE [facility] Comment on above: Performed By: #### 5 902-2 #### JOLENE RONQUILLO L ([id number]) [facility] ([facility]) [address] [place] [address] 52151 Nitrite Auto test strip Ql (U) Negative Normal NEGATIVE [facility] Comment on above: Performed By: #### 5 902-2 #### JOLENE Cantu ([id number]) [facility] ([facility]) [address] [place] [address] 29601 pH (U) 7.5 [pH] Normal 5.0, 5.5, 6.0, 6.5, 7.0, 7.5, 8.0 [facility] Comment on above: Performed By: #### 5 902-2 #### JOLENE RONQUILLO L ([id number]) [facility] ([facility]) [address] [place] [address] 67115 Protein (U) [Mass/Vol] Negative Normal NEGAT ALEXANDRE, 10 (TRACE), 20 (TRACE) [facility] Comment on above: Performed By: #### 5 902-2 #### JOLENE RONQUILLO L (49988) [facility] ([facility]) [address] [place] [address] 97321 RBC (U) [#/Vol] Negative Normal NEGATIVE [facility] Comment on above: Performed By: #### 5 902-2 #### JOLENE Cantu ([id number]) [facility] ([facility]) [address] [place] [address] 98130 Specific gravity (U) [Rel density] 1.007 Normal 1.005-1.035 [facility] Comment on above: Performed By: #### 5 902-2 #### JOLENE Cantu ([id number]) [facility] ([facility]) [id number] [place] [address] 01262 Urobilinogen (U) [Mass/Vol] Normal Normal Normal [facility] Comment on above: Performed By: #### 5 902-2 #### JOLENE Cantu ([id number]) [facility] ([facility]) [address] [place] [address] 98025 Consent for Treatmenton Consent for Treatment [id number]#1.00TIF F Normal [facility] Discharge Instructionson Discharge Instructions [id number]#1.00TIF F Normal [facility] ED Clinical Summaryon 2023 ED Clinical Summary Normal [facility] ED Note-Physicianon 07-31-19 ED Note-Physician Normal [facility] Comment on above: Result Comment: Elec tronically Signed By: Landon Tidwell PA-C.br\Date and Time Signed: 07/31/23 15:32 EDT\.br\Electronically Co-Signed By: Balbina Bryant M.D..br\Date and Time Co-Signed: 07/31/23 15:51 EDT ED Patient Education Noteon 07-31-2023 ED Patient Education Note Normal [facility] ED Patient Summaryon 024 ED Patient Summary Normal [facility] Consent To Leave AMAon 07-25 Consent To Leave AMA [id number]#1.00TIF F [facility] Consent for Treatmenton Consent for Treatment [id number]#1.00TIF F [facility] Discharge Instructionson Discharge Instructions [id number]#1.00TIF F [facility] ED Clinical Summaryon 2023 ED Clinical Summary [facility] ED Note-Physicianon 07-26-19 ED Note-Physician [facility] Comment on above: Result Comment: Elec tronically Signed By: Jorge Mcintosh DO\.br\Date and Time Signed: 07/26/23 11:28 EDT ED Patient Education Noteon 07-26-2023 ED Patient Education Note Normal [facility] ED Patient Summaryon 024 ED Patient Summary Normal [facility] Consultation Noteon 07-24-19 Consultation Note [id number]#1.00TIF F [facility] Consultation Note [id number]#1.00TIF F [facility] Family Medicine Office/Clini c Noteon 07-23-2023 Family Medicine Office/Clinic Note [facility] Comment on above: Result Comment: Elec tronically Signed By: Cheyanne Rincon\.br\Date and Time Signed: 07/23/23 14:37 EDT Physician Referralon 024 Physician Referral [id number]#1.00TIF F [facility] CT Abdomen/Pelvis w/o Contra ston 07-21-2023 CT Abdomen/Pelvis w/o Contrast [facility] ED Note-Physicianon 07-21-19 ED Note-Physician [facility] Comment on above: Result Comment: Elec tronically Signed By: Balbina Bryant M.D.\.br\Date and Time Signed: 07/21/23 04:24 EDT XR Chest Single Viewon 07-20 XR Chest Single View Normal [facility] BMPon 07-20-2023 Anion gap [Moles/Vol] 10 mmol/L Normal 6-16 [facility] Comment on above: Performed By: #### 1 [id number], 1358095, 82929185, 85944499, 4001335, 0277170, 42804471 ####[facility] [address] [place] [address] Calcium [Mass/Vol] 8.2 mg/dL Low 8.9-11.1 [facility] Comment on above: Performed By: #### 1 8133892, 1553927, 74392431, 48188403, 0419944, 9538137, 71555638 ####[facility] [address] [place] [address] Chloride [Moles/Vol] 105 mmol/L Normal 101-111 [facility] Comment on above: Performed By: #### 1 8350957, 4493276, 94290271, 87447416, 4591490, 5649156, 72313702 ####[facility] [address] [place] [address] CO2 [Moles/Vol] 26 mmol/L Normal 21-31 [facility] Comment on above: Performed By: #### 1 7332562, 7228544, 41857903, 17152440, 1632217, 8227969, 36394416 ####[facility] [address] [place] [address] Creatinine [Mass/Vol] 0.7 mg/dL Normal 0.5-1.3 [facility] Comment on above: Performed By: #### 1 3066867, 2822371, 73623937, 66656120, 7232948, 4609914, 40123722 ####[facility] [address] [place] [address] Glucose [Mass/Vol] 122 mg/dL Normal 55-199 [facility] Comment on above: Performed By: #### 1 8421221, 3655806, 13999615, 71131474, 9687636, 4844341, 06193722 ####[facility] [address] [place] [address] Potassium [Moles/Vol] 4.0 mmol/L Normal 3.5-5.3 [facility] Comment on above: Performed By: #### 1 7938604, 6073775, 50365579, 29742026, 1338126, 7900397, [id number] ####[facility] [address] [place] [address] Sodium [Moles/Vol] 137 mmol/L Normal 135-145 [facility] Comment on above: Performed By: #### 1 6986056, 2752545, 82831550, 41587325, 2345348, 5938473, 05391187 ####[facility] [address] [place] [address] Urea nitrogen [Mass/Vol] 17 mg/dL Normal 5-21 [facility] Comment on above: Performed By: #### 1 3657925, 6168923, 34840418, 27675852, 1864926, 5600887, 07883601 ####[facility] [address] [place] [address] Urea nitrogen/Creatinine [Mass ratio] 24 No Units High 10-20 [facility] Comment on above: Performed By: #### 1 2893689, 4824588, 30900924, 79662235, 6294552, 9587320, 89647812 ####[facility] [address] [place] [address] BNPon 07-20-2023 Natriuretic peptide B (Bld) [Mass/Vol] 25 pg/mL Normal 5-80 [facility] Comment on above: Performed By: #### 1 6302729, 3604360, 99510750, 66844670, 1309245, 4298491, 78123603 ####[address] [place] [address] CBC w/ Auto Diffon 4 Basophils/100 WBC (Bld) 0.4 % Normal 0.0-2.0 [facility] Comment on above: Performed By: #### 1 2946528, 5022268, 23059827, 49218684, 6308890, 7387330, 49231502 ####[address] [address] Basophils/Leukocytes Auto (Bld) [Pure # fraction] 0.0 E9/L Normal 0.0-0.2 [facility] Comment on above: Performed By: #### 1 1623070, 7065279, 52179915, 73064831, 3051244, 6841578, 71634102 ####[address] [address] Eosinophils (Bld) [#/Vol] 0.2 E9/L Normal 0.0-0.5 [facility] Comment on above: Performed By: #### 1 6091375, 0025995, 26351226, 37643637, 8316868, 5135514, 77414177 ####[address] [address] Eosinophils/100 WBC (Bld) 1.3 % Normal 0.0-8.0 [facility] Comment on above: Performed By: #### 1 7099702, 0656809, 05642448, 24040307, 6144863, 5803472, 17466247 ####[address] [address] Erythrocyte distribution width (RBC) [Ratio] 13.3 % Normal 10.9-14.2 [facility] Comment on above: Performed By: #### 1 4078037, 7151078, 20310738, 22737573, 2800288, 8657748, 92219075 ####[address] [address] Hematocrit (Bld) [Volume fraction] 38.3 % Normal 34.0-46.0 [facility] Comment on above: Performed By: #### 1 6592068, 6210132, 11579590, 28436447, 5335880, 3681359, 20179109 ####[facility] [address] [place] [address] Hemoglobin (Bld) [Mass/Vol] 12.9 g/dL Normal 12.0-16.0 [facility] Comment on above: Performed By: #### 1 1112225, 2039888, 55859471, 80170308, 7523202, 9963549, 67641868 ####[facility] [address] [place] [address] Lymphocytes (Bld) [#/Vol] 2.2 E9/L Normal 1.0-4.0 [facility] Comment on above: Performed By: #### 1 5289618, 4703400, 81889957, 85192300, 5762074, 9110699, 16133948 ####[facility] [address] [place] [address] Lymphocytes/100 WBC (Bld) 18.2 % Normal 14.0-50.0 [facility] Comment on above: Performed By: #### 1 1505381, 8759495, 68897718, 33133261, 3916642, 5190338, 79850283 ####[address] [place] [address] MCH (RBC) [Entitic mass] 31.7 pg Normal 27.0-34.0 [facility] Comment on above: Performed By: #### 1 4353705, 3992533, 63369875, 10148560, 9610733, 9586592, 90521891 ####[facility] [address] [place] [address] MCHC (RBC) [Mass/Vol] 33.8 g/dL Normal 31.4-36.0 [facility] Comment on above: Performed By: #### 1 4382460, 0045699, 82333511, 72488048, 1168111, 6896982, 80823306 ####[address] [place] [address] MCV (RBC) [Entitic vol] 93.8 fL Normal 80.0-100.0 [facility] Comment on above: Performed By: #### 1 1125703, 0549802, 14537474, 95994504, 1459738, 0644218, 12165574 ####[address] [address] Monocytes (Bld) [#/Vol] 0.6 E9/L Normal 0.2-1.0 [facility] Comment on above: Performed By: #### 1 3761842, 1712988, 59709699, 21027780, 6475570, 5827743, 79759987 ####[address] [address] Neutrophils (Bld) [#/Vol] 9.0 E9/L High 2.0-7.5 [facility] Comment on above: Performed By: #### 1 0828770, 5067941, 52940440, 83586544, 8807188, 2005596, 06838979 ####[address] [address] Neutrophils/100 WBC (Bld) 75.2 % High 36.0-75.0 [facility] Comment on above: Performed By: #### 1 6448243, 6012682, 45196581, 28557215, 7341300, 7423635, 77485525 ####[address] [address] Platelet mean volume (Bld) [Entitic vol] 8.9 fL Normal 6.4-10.8 [facility] Comment on above: Performed By: #### 1 3869738, 2527342, 33377357, 62682484, 7977346, 7251247, 30981945 ####[facility] [address] [place] [address] Platelets (Bld) [#/Vol] 245.0 E9/L Normal 150.0-500.0 [facility] Comment on above: Performed By: #### 1 2914829, 5181306, 93205815, 78383279, 5825810, 2199402, 62250963 ####[facility] [address] [place] [address] RBC (Bld) [#/Vol] 4.1 E12/L Low 4.3-5.9 [facility] Comment on above: Performed By: #### 1 3588843, 5003108, 52970404, 82784996, 4545948, 4580682, 17778668 ####[facility] [address] [place] [address] WBC corrected for nucl RBC Auto (Bld) [#/Vol] 11.9 E9/L High 4.0-11.0 [facility] Comment on above: Performed By: #### 1 7956779, 1009294, 55966424, 74802590, 4684567, 8557938, 66168084 ####[facility] [address] [place] [address] Consent for Treatmenton 06-24 Consent for Treatment [id number]#1.00TIF F Normal [facility] Discharge Instructionson Discharge Instructions [id number]#1.00TIF F Normal [facility] ED Clinical Summaryon 2023 ED Clinical Summary Normal [facility] ED Patient Education Noteon 07-20-2023 ED Patient Education Note Normal [facility] ED Patient Summaryon 024 ED Patient Summary Normal [facility] Hep Func Panelon 07-20-2023 Albumin [Mass/Vol] 3.8 g/dL Normal 3.3-5.0 [facility] Comment on above: Performed By: #### 1 5794706, 4357815, 21288019, 92393545, 2357204, 6657069, 65490816 ####[address] [place] [address] Albumin/Globulin (S) [Mass conc ratio] 1.4 Normal 1.1-2.2 [facility] Comment on above: Performed By: #### 1 0477021, 2211338, 34853568, 74530846, 4419364, 5665745, 35544112 ####[facility] [address] [place] [address] ALP [Catalytic activity/Vol] 68 Int._Unit/L Normal 21-98 [facility] Comment on above: Performed By: #### 1 2915690, 0368694, 65856631, 35955075, 9182085, 4178414, 55969070 ####[address] [address] ALT No additional P-5'-P [Catalytic activity/Vol] 22 Int._Unit/L Normal 6-46 [facility] Comment on above: Performed By: #### 1 8900001, 9093353, 34841508, 18942857, 8244104, 8367271, 32247528 ####[address] [address] AST [Catalytic activity/Vol] 26 Int._Unit/L Normal 5-43 [facility] Comment on above: Performed By: #### 1 6573668, 0813998, 12093276, 00183316, 1678139, 4243077, 82210352 ####[address] [place] [address] Bilirubin [Mass/Vol] 0.3 mg/dL Normal 0.0-1.1 [facility] Comment on above: Performed By: #### 1 5900437, 6295203, 76079735, 74405638, 3762130, 2234539, 18722133 ####[address] [place] [address] Bilirubin.direct [Mass/Vol] 0.1 mg/dL Normal 0.0-0.4 [facility] Comment on above: Performed By: #### 1 7807594, 9716097, 00658856, 16150691, 2113233, 2900133, 24938820 ####[facility] [address] [place] [address] Bilirubin.indirect [Mass or moles/Vol] 0.2 mg/dL Normal 0.1-0.9 [facility] Comment on above: Performed By: #### 1 3827033, 4373491, 18577202, 40762709, 0704346, 0940185, 91542065 ####[facility] [address] [place] [address] Globulin (S) [Mass/Vol] 2.8 g/dL Normal 1.4-4.0 [facility] Comment on above: Performed By: #### 1 0721550, 9547964, 72074249, 96223124, 3510071, 4112114, 04981402 ####[facility] [address] [place] [address] Protein [Mass/Vol] 6.6 g/dL Normal 6.0-7.8 [facility] Comment on above: Performed By: #### 1 9698364, 4052099, 74089086, 14385481, 1010575, 0521841, 68816879 ####[facility] [address] [place] [address] PT & PTTon 07-20-2023 aPTT Coag (PPP) [Time] 33.9 second(s) Normal 25.1-36.5 [facility] Comment on above: Result Comment: Para meter 15 days - 4 weeks 1 - 5 months 6 - 11 months 1 - 5 years 6 - 10 years 11 - 17 years PTT Mean: 35.4 (27.6-45.6) Mean: 33.5 (24.8-40.7) Mean: 32.4 (25.1-40.7) Mean: 31.6 (24.0-39.2) Mean: 31.6 (26.9-38.7) Mean: 31.0 (24.6-38.4) Pediatric Reference ranges were obtained from a study by jean-claude Zavala. prepared from 1437 samples obtained at 7 different centers using the same coagulation reagent and instrumentation as [facility]. Currently there are no coagulation studies available worldwide for children to 14 days, and no normal ranges. Heparin therapeutic range (represented by Anti-Factor Xa activity of 0.2 - 0.4 U/mL) corresponds to PTT of 56.6 - 109.0 sec. Performed By: #### 1 8813219, 5498209, 47571299, 56293560, 0657129, 6488504, 82049573 ####[facility] [address] [place] [address] INR Coag (PPP) [Relative time] 0.98 {INR} Invalid Interpretation Code [facility] Comment on above: Result Comment: INR results are specifically intended to assess patients stabilized on long-term Anticoagulation therapy suggested INR?s ?Less Intensive Anticoagulation? 2.0 ? 3.0Conventional Range 3.0 ? 4.5 Performed By: #### 1 7651293, 2794903, 53290079, 60069961, 9480173, 6488036, 17198726 ####[facility] [address] [place] [address] PT Coag (PPP) [Time] 11.0 second(s) Normal 9.4-12.5 [facility] Comment on above: Result Comment: 15 d ays - 4 weeks 1 - 5 months 6 -11 months 1-5 years 6-10 years 11 -17 years Mean: 11.2 (9.5-12.6) Mean: 11.0 (9.7-12.8) Mean: 11.0 (9.8-13.0) Mean: 11.3 (9.9-13.4) Mean: 11.7 (10.0-14.6) Mean: 11.8 (10.0 - 14.1) Pediatric Reference ranges were obtained from a study by Chidi Paonia, et al. prepared from 1437 samples obtained at 7 different centers using the same coagulation reagent and instrumentation as [facility]. Currently there are no coagulation studies available worldwide for children to 14 days, and no normal ranges. Performed By: #### 1 1502978, 0934636, 15628986, 97148747, 6683734, 2756015, 11872720 ####[facility] [address] [place] [address] RAD - Preliminary Cat Scan R eporton 07-20-2023 RAD - Preliminary Cat Scan Report [id number]#1.00TIF F Normal [facility] Troponin 0 Hr.on 07-20-2023 Troponin 11.90 pg/mL Normal 10.10-27.10 [facility] Comment on above: Result Comment: The 95% CI (Confidence Interval) PPV (Positive Predictive Value) for myocardial infarction in females is 38 pg/mL, in males 51 pg/mL. The results should be used in conjunction with clinical conditions of myocardial infarction.(Access High Sensitivity Troponin I Instructions For Use, [employer]ink, October 2017) Performed By: #### 1 8016931, 6125237, 80068572, 80403807, 9811524, 1418210, 83528634 ####[facility] [address] [place] [address] Troponin 1 Hr.on 07-20-2023 Troponin 2.50 pg/mL Low 10.10-27.10 [facility] Comment on above: Order Comment: to be drawn at 1939. [id number] 07/20/2023 18:47:40 EDT Result Comment: The 95% CI (Confidence Interval) PPV (Positive Predictive Value) for myocardial infarction in females is 38 pg/mL, in males 51 pg/mL. The results should be used in conjunction with clinical conditions of myocardial infarction.(Access High Sensitivity Troponin I Instructions For Use, [employer]ink, October 2017) Performed By: #### 1 2559625 ####[facility] [address] [place] [address] eGFRon 07-20-2023 eGFR 108 mL/min/1.73 m2 Normal >=59 [facility] Comment on above: Order Comment: Order added by Discern Expert. Performed By: #### 1 6716503, 0714168, 98470354, 62803236, 9085982, 3096944, 34905196 ####[facility] [address] [place] [address] Outside Records Officeon Outside Records Office [id number]#1.00TI FF [facility] Ambulatory Visit Summaryon 0 07-17-2023 Ambulatory Visit Summary Invalid Interpretation Code Weight gain [facility] Auth for Release of Medical Recordson 07-17-2023 Auth for Release of Medical Records [id number]#1.00TIF F [facility] Formson 07-17-2023 Forms [id number]#1.00TIF F [facility] Patient Educationon 07-17-19 Patient Education [facility] Outside Records Officeon Outside Records Office [id number]#1.00TI FF [facility] Outside Records Office [id number]#1.00TI FF [facility] Consent for Treatmenton 06-24 Consent for Treatment [id number]#1.00TI FF [facility] Consultation Noteon 07-15-19 Consultation Note Normal [facility] Comment on above: Result Comment: Elec tronically Signed By: Joao MILES, Dory\.br\Date and Time Signed: 07/15/23 14:14 EDT HIPAA Forms Officeon 024 HIPAA Forms Office [id number]#1.00TI FF [facility] Legal Correspondence Officeo n 07-15-2023 Legal Correspondence Office [id number]#1.00TI FF [facility] Legal Correspondence Office [id number]#1.00TI FF Normal [facility] Office/Clinic Note-Physician on 07-15-2023 Office/Clinic Note-Physician [id number]#1.00TI FF Normal [facility] Patient Correspondenceon Patient Correspondence [id number]#1.00TI FF Normal [facility] Patient Correspondence [id number]#1.00TI FF Normal [facility] Patient Correspondence [id number]#1.00TI FF Normal [facility] Patient Correspondence [id number]#1.00TI FF Normal [facility] Patient Correspondence [id number]#1.00TI FF [facility] Patient History Officeon Patient History Office [id number]#1.00TI FF [facility] Release of Records Officeon 07-15-2023 Release of Records Office [id number]#1.00TI FF [facility] Release of Records Office [id number]#1.00TI FF [facility] Consent for Treatmenton 06-24 Consent for Treatment [id number]#1.00TIF F [facility] Discharge Instructionson Discharge Instructions [id number]#1.00TI FF [facility] ED Clinical Summaryon 2023 ED Clinical Summary Normal [facility] ED Note-Physicianon 07-14-19 ED Note-Physician Normal [facility] Comment on above: Result Comment: Elec tronically Signed By: Angelic Reece PA-C\.br\Date and Time Signed: 07/14/23 12:06 EDT\.br\Electronically Co-Signed By: Nikhil Tubbs DO.br\Date and Time Co-Signed: 07/14/23 13:59 EDT ED Patient Education Noteon 07-14-2023 ED Patient Education Note Normal [facility] ED Patient Summaryon 024 ED Patient Summary Normal [facility] Consent for Treatmenton 06-23 Consent for Treatment [id number]#1.00TIF F Normal [facility] Discharge Instructionson Discharge Instructions [id number]#1.00TIFF Normal [facility] ED Clinical Summaryon 2023 ED Clinical Summary Normal [facility] ED Note-Physicianon 07-11-19 ED Note-Physician Normal [facility] Comment on above: Result Comment: Elec tronically Signed By: Balbina Bryant M.D.\.br\Date and Time Signed: 07/11/23 10:11 EDT ED Patient Education Noteon 07-11-2023 ED Patient Education Note Normal [facility] ED Patient Summaryon 024 ED Patient Summary Normal [facility] Clipboard Summaryon 07-08-19 Clipboard Summary {mx-60-pv-01-9d-ab-4 a-89 -15-11-6t-15-2t-z9-42-37 }XML Normal [facility] Discharge Instructionson Discharge Instructions [id number]#1.00TI FF Normal [facility] Consent for Treatmenton 06-23 Consent for Treatment [id number]#1.00TIF F Normal [facility] ED Clinical Summaryon 2023 ED Clinical Summary Normal [facility] ED Note-Physicianon 07-06-19 ED Note-Physician Normal [facility] Comment on above: Result Comment: Elec tronically Signed By: Pedro Pablo Fletcher DO\.br\Date and Time Signed: 07/06/23 19:43 EDT ED Patient Education Noteon 07-06-2023 ED Patient Education Note Normal [facility] ED Patient Summaryon 024 ED Patient Summary Normal [facility] Consent for Treatmenton Consent for Treatment [id number]#1.00TIF F [facility] Discharge Instructionson Discharge Instructions [id number]#1.00TI FF Normal [facility] ED Clinical Summaryon 2023 ED Clinical Summary Normal [facility] ED Note-Physicianon 06-29-19 ED Note-Physician Normal [facility] Comment on above: Result Comment: Elec tronically Signed By: Landon Tidwell PA-C\.br\Date and Time Signed: 06/29/23 15:22 EDT\.br\Electronically Co-Signed By: Nikhil Tubbs DO\.br\Date and Time Co-Signed: 06/29/23 15:52 EDT ED Patient Education Noteon 06-29-2023 ED Patient Education Note Normal [facility] ED Patient Summaryon 024 ED Patient Summary Normal [facility] .HCV RT-PCR, Quant (Non-Grap h)on 06-27-2023 Diagnostic impression Mol[employer] Sky (Unsp spec) [Interp] Comment Invalid Interpretation Code [facility] Comment on above: Result Comment: Posi tive HCV antibody screen without the presence of HCV RNAis consistent with a resolved past infection or a falsepositive HCV antibody. Consider repeat testing after onemonth.Performed at: [address] [id number] MD Bhargav Lamar Performed By: #### 2 [id number], [id number], 5519709 ####[facility] [address] [place] [address]457 HCV RNA LINDSEY+probe Qn Not detected Invalid Interpretation Code [facility] Comment on above: Performed By: #### 2 027692638, 4092397835, 9458708 ####[facility] [address] [place] [address]457 Reference Lab Test Reference Range Comment Invalid Interpretation Code [facility] Comment on above: Result Comment: The quantitative range of this assay is 15 IU/mL to 100 million IU/mL. Performed By: #### 2 722797521, [id number], 9853946 ####[facility] [address] [place] [address] Consent for Treatmenton Consent for Treatment [id number]#1.00TIF F Normal [facility] Discharge Instructionson Discharge Instructions [id number]#1.00TI FF Normal [facility] ED Clinical Summaryon 2023 ED Clinical Summary Normal [facility] ED Note-Physicianon 06-27-19 ED Note-Physician Normal [facility] Comment on above: Result Comment: Elec tronically Signed By: Kristie Boss PA-C\.br\Date and Time Signed: 06/27/23 12:40 EDT\.br\Electronically Co-Signed By: Nikhil Tubbs DO.br\Date and Time Co-Signed: 06/27/23 14:49 EDT ED Patient Education Noteon 06-27-2023 ED Patient Education Note Normal [facility] ED Patient Summaryon 024 ED Patient Summary Normal [facility] HCV Antibody RFX to Quant PC Fernando 06-27-2023 HCV IgG IA Ql Reactive Abnormal Non Reactive [facility] Comment on above: Result Comment: Perf ormed at: [facility] [place], [place] [id number] PhD Pantera Alonso Performed By: #### 2 [id number], [id number], 6992987 ####[facility] [address] [place] [address] Hep Bs Agon 06-27-2023 HBV surface Ag IA Ql Negative Invalid Interpretation Code Negative [facility] Comment on above: Result Comment: Perf ormed at: [facility] [place], [place] [id number] PhD [employer]tera Alonso Performed By: #### 2 [id number], [id number], 8111598 ####[facility] [address] [place] [address] Consent for Treatmenton Consent for Treatment [id number]#1.00TIF F Normal [facility] Discharge Instructionson Discharge Instructions [id number]#1.00TI FF Normal [facility] ED Clinical Summaryon 2023 ED Clinical Summary Normal [facility] ED Note-Physicianon 06-24-19 ED Note-Physician Normal [facility] Comment on above: Result Comment: Elec tronically Signed By: Annette Watkins, Balbina Sparks\.br\Date and Time Signed: 06/24/23 12:17 EDT ED Patient Education Noteon 06-24-2023 ED Patient Education Note Normal [facility] ED Patient Summaryon 024 ED Patient Summary Normal [facility] MRI Spine Lumbar w/o Contras ton 06-24-2023 MRI Spine Lumbar w/o Contrast Normal [facility] RAD - MRI Screening Formon 0 06-24-2023 RAD - MRI Screening Form [id number]#1.00TIF F Normal [facility] CT Abdomen/Pelvis w/ Contras ton 06-23-2023 CT Abdomen/Pelvis w/ Contrast Normal [facility] CBC w/ Auto DiffOrdered By: SYSTEM SYSTEM on 06-22-2023 Basophils/100 WBC (Bld) 0.1 % Normal 0.0-2.0 R [facility] Comment on above: Performed By: #### 2 925785, 0380752, 6704271, 8322339, 98094473, 93030247, 81133502, 6744609 ####[address] [address] Basophils/Leukocytes Auto (Bld) [Pure # fraction] 0.0 E9/L Normal 0.0-0.2 [facility] Comment on above: Performed By: #### 2 216127, 2534002, 8048738, 0859681, 61262113, 72833535, 81929364, 8946650 ####[address] [address] Eosinophils (Bld) [#/Vol] 0.1 E9/L Normal 0.0-0.5 [facility] Comment on above: Performed By: #### 2 375714, 4213443, 6762738, 7155704, 49425747, 93525976, 74819216, 0438233 ####[address] [address] Eosinophils/100 WBC (Bld) 0.9 % Normal 0.0-8.0 [facility] Comment on above: Performed By: #### 2 781284, 7532650, 4078201, 0333269, 66337467, 36530444, 96242673, 5949906 ####[address] [address] Erythrocyte distribution width (RBC) [Ratio] 13.3 % Normal 10.9-14.2 [facility] Comment on above: Performed By: #### 2 262015, 6136506, 3330416, 3498374, 44787360, 75866150, 69371521, 5064264 ####[address] [place] [address] Hematocrit (Bld) [Volume fraction] 45.0 % Normal 34.0-46.0 [facility] Comment on above: Performed By: #### 2 960066, 3347032, 0700094, 4601410, 83475738, 87736643, 03211699, 7852284 ####[place] [address] Hemoglobin (Bld) [Mass/Vol] 15.1 g/dL Normal 12.0-16.0 [facility] Comment on above: Performed By: #### 2 964691, 7257540, 7858020, 5052097, 96772671, 25843663, 30408040, 8756110 ####[place] [address] Lymphocytes (Bld) [#/Vol] 0.4 E9/L Low 1.0-4.0 [facility] Comment on above: Performed By: #### 2 960332, 1286961, 2444986, 3603664, 39117561, 89545705, 98582310, 5478735 ####[place] [address]457 Lymphocytes/100 WBC (Bld) 3.7 % Low 14.0-50.0 [facility] Comment on above: Performed By: #### 2 032949, 2839466, 7230062, 7919529, 14546717, 34762820, 73820128, 1406745 ####[place] [address] [address] MCH (RBC) [Entitic mass] 31.5 pg Normal 27.0-34.0 [facility] Comment on above: Performed By: #### 2 132569, 1097658, 3908016, 3730048, 72358404, 14952616, 08139253, 8262557 ####[place] [address] [address] MCHC (RBC) [Mass/Vol] 33.5 g/dL Normal 31.4-36.0 [facility] Comment on above: Performed By: #### 2 863251, 6314718, 6015594, 6987827, 65564815, 17529179, 70332811, 4821491 ####[address] [address] MCV (RBC) [Entitic vol] 94.2 fL Normal 80.0-100.0 R emisol Heme Comment on above: Performed By: #### 2 480815, 4147016, 1805366, 9558044, 63251435, 83832180, 26359177, 6993408 ####[address] [address] Monocytes (Bld) [#/Vol] 0.3 E9/L Normal 0.2-1.0 R emisol Heme Comment on above: Performed By: #### 2 856589, 4788953, 2329918, 5928574, 39855142, 66434519, 21187040, 4479836 ####Orr [address] [address] Neutrophils (Bld) [#/Vol] 9.5 E9/L High 2.0-7.5 Remisol Heme Comment on above: Performed By: #### 2 011792, 8945239, 4865973, 6233627, 30632482, 24750140, 91054752, 8513033 ####Orr [address] [address] Neutrophils/100 WBC (Bld) 92.1 % High 36.0-75.0 Remisol Heme Comment on above: Performed By: #### 2 198575, 5561900, 7019008, 9855347, 86745427, 05901311, 92243433, 8236115 ####[address] [address] Platelet 308.0 E9/L Normal 150.0-500.0 Remisol Heme Comment on above: Performed By: #### 2 025095, 0563541, 7843460, 4713903, 77915472, 98718166, 15483093, 4375087 ####[facility] [address] [place] [address] Platelet mean volume (Bld) [Entitic vol] 8.7 fL Normal 6.4-10.8 Remisol Heme Comment on above: Performed By: #### 2 668303, 6932503, 1425041, 3526490, 31053846, 45865333, 92798016, 6925344 ####[facility] [address] [place] [address] RBC (Bld) [#/Vol] 4.8 E12/L Normal 4.3-5.9 Remisol Heme Comment on above: Performed By: #### 2 989170, 8463105, 8175088, 6788699, 28368205, 51693072, 71113639, 4062371 ####[facility] [address] [place] [address] WBC corrected for nucl RBC Auto (Bld) [#/Vol] 10.3 E9/L Normal 4.0-11.0 Remisol Heme Comment on above: Performed By: #### 2 196759, 1257825, 1899257, 0114464, 21485389, 73343166, 67767819, 0063058 ####Kirby [address] [address] CHEMISTRYOrdered By: SYSTEM SYSTEM on 06-22-2023 Albumin/Globulin [Mass ratio] 1.2 {ratio} Normal 1.1 - 2.2 Remisol Chem ALP [Catalytic activity/Vol] 74 [iU]/d Normal 21 - 98 Int._Unit/L Remisol Chem ALT No additional P-5'-P [Catalytic activity/Vol] 17 [iU]/d Normal 6 - 46 Int._Unit/L Remisol Chem AST [Catalytic activity/Vol] 18 [iU]/d Normal 5 - 43 Int._Unit/L Remisol Chem Lipase [Catalytic activity/Vol] unit/L Low 13 - 58 unit/L Remisol Chem Urea nitrogen/Creatinine [Mass ratio] 19 mg/mg Normal 10 - 20 Remisol Chem CMPOrdered By: SYSTEM SYSTEM on 06-22-2023 Albumin [Mass/Vol] 4.2 g/dL Normal 3.3-5.0 Remiso l Chem Comment on above: Performed By: #### 2 683043, 2664785, 8720046, 4863516, 14945168, 17354395, 35254535, 0316447 ####[facility] [address] [place] [address] Anion gap [Moles/Vol] 13 mmol/L Normal 6-16 Rem isol Chem Comment on above: Performed By: #### 2 028516, 7973394, 1278779, 1281196, 31513961, 30431947, 76997767, 3553849 ####[address] [address] Bilirubin [Mass/Vol] 0.6 mg/dL Normal 0.0-1.1 Donnie diego Chem Comment on above: Performed By: #### 2 472523, 1161612, 3548029, 3527171, 66194025, 00764155, 14954711, 3427869 ####[address] [address] Calcium [Mass/Vol] 8.3 mg/dL Low 8.9-11.1 Remiso l Chem Comment on above: Performed By: #### 2 496343, 0841492, 9355269, 7905031, 81805339, 90995333, 65694560, 1430825 ####[facility] [address] [place] [address] Chloride [Moles/Vol] 106 mmol/L Normal 101-111 Donnie diego Chem Comment on above: Performed By: #### 2 366231, 2093159, 8479893, 5784158, 30075582, 46526419, 36418126, 0001947 ####[address] [address] CO2 [Moles/Vol] 24 mmol/L Normal 21-31 Remisol Chem Comment on above: Performed By: #### 2 014498, 8058416, 8971125, 5784725, 29967986, 98971862, 00734206, 9230873 ####[place] [address] [place] [address] Creatinine [Mass/Vol] 0.7 mg/dL Normal 0.5-1.3 Rem isol Chem Comment on above: Performed By: #### 2 638777, 4117099, 1947938, 0677659, 13670743, 82654376, 95551657, 6788253 ####[address] [address] Globulin (S) [Mass/Vol] 3.6 g/dL Normal 1.4-4.0 R emisol Chem Comment on above: Performed By: #### 2 561446, 9144980, 7395892, 9218442, 86322120, 32068069, 00622751, 0554029 ####Kirby [address] [address] Glucose [Mass/Vol] 124 mg/dL Normal 55-199 Remiso l Chem Comment on above: Performed By: #### 2 296154, 0643720, 3092354, 5654214, 08198852, 97667000, 83040972, 3641222 ####Orr [address] [address] Potassium [Moles/Vol] 3.9 mmol/L Normal 3.5-5.3 Rem isol Chem Comment on above: Performed By: #### 2 839273, 4933049, 3545921, 3045421, 48283349, 85837383, 49224174, 7699036 ####Orr [address] [address] Protein [Mass/Vol] 7.8 g/dL Normal 6.0-7.8 Remiso l Chem Comment on above: Performed By: #### 2 302976, 2813049, 0158873, 8616196, 96424132, 93533123, 33223484, 2537091 ####[facility] [address] [place] [address] Sodium [Moles/Vol] 139 mmol/L Normal 135-145 Remiso l Chem Comment on above: Performed By: #### 2 335121, 3976999, 3962684, 8856082, 30406199, 74436208, 17025232, 5530887 ####[address] [place] [address] Urea nitrogen [Mass/Vol] 13 mg/dL Normal 5-21 Remisol Chem Comment on above: Performed By: #### 2 067302, 5687950, 4873043, 0557596, 41780013, 83761715, 46016332, 1745050 ####[address] [address] CMPon 06-22-2023 Albumin/Globulin (S) [Mass conc ratio] 1.2 Normal 1.1-2.2 [facility] Comment on above: Performed By: #### 2 617896, 5001182, 7898495, 3996777, 22665169, 12513429, 82679820, 4411635 ####[address] [place] [address] ALP [Catalytic activity/Vol] 74 Int._Unit/L Normal 21-98 [facility] Comment on above: Performed By: #### 2 807592, 8149485, 6998592, 5922262, 55802601, 36712069, 77392213, 1661866 ####[facility] [address] [place] [address] ALT No additional P-5'-P [Catalytic activity/Vol] 17 Int._Unit/L Normal 6-46 [facility] Comment on above: Performed By: #### 2 040114, 8978977, 0103057, 3906216, 03446337, 23749294, 13138132, 7523085 ####[address] [place] [address] AST [Catalytic activity/Vol] 18 Int._Unit/L Normal 5-43 [facility] Comment on above: Performed By: #### 2 979872, 9701150, 8520648, 2465434, 00020802, 41083317, 06426573, 1172819 ####[facility] [address] [place] [address] Urea nitrogen/Creatinine [Mass ratio] 19 No Units Normal 10-20 [facility] Comment on above: Performed By: #### 2 173311, 7415273, 9772249, 9670561, 73290623, 87328799, 34269921, 0498758 ####[facility] [address] [place] [address] COAGULATIONOrdered By: Nuvia Carrillo on 06-22-2023 aPTT Coag (PPP) [Time] 36.0 s Normal 25.1 - 36.5 second(s) [facility] Auto Coag Comment on above: Interpretive Data: P arameter 15 days - 4 weeks 1 - 5 months 6 - 11 months 1 - 5 years 6 - 10 years 11 - 17 years PTT Mean: 35.4 (27.6-45.6) Mean: 33.5 (24.8-40.7) Mean: 32.4 (25.1-40.7) Mean: 31.6 (24.0-39.2) Mean: 31.6 (26.9-38.7) Mean: 31.0 (24.6-38.4) Pediatric Reference ranges were obtained from a study by Chidi Valera et al. prepared from 1437 samples obtained at 7 different centers using the same coagulation reagent and instrumentation as [facility]. Currently there are no coagulation studies available worldwide for children to 14 days, and no normal ranges. Heparin therapeutic range (represented by Anti-Factor Xa activity of 0.2 - 0.4 U/mL) corresponds to PTT of 56.6 - 109.0 sec. PT Coag (PPP) [Time] 10.7 s Normal 9.4 - 1 2.5 second(s) [facility] Auto Coag Comment on above: Interpretive Data: 1 5 days - 4 weeks 1 - 5 months 6 -11 months 1 5 years 6 10 years 11 -17 years Mean: 11.2 (9.5 12.6) Mean: 11.0 (9.7 12.8) Mean: 11.0 (9.8 13.0) Mean: 11.3 (9.9 13.4) Mean: 11.7 (10.0 14.6) Mean: 11.8 (10.0 - 14.1) Pediatric Reference ranges were obtained from a study by monet Zavala al. prepared from 1437 samples obtained at 7 different centers using the same coagulation reagent and instrumentation as [facility]. Currently there are no coagulation studies available worldwide for children to 14 days, and no normal ranges. Consent for Treatmenton 05-25 Consent for Treatment [id number]#[id number] F [facility] Consent for Treatment [id number]#1.00TI FF [facility] Discharge Instructionson Discharge Instructions [id number]#[id number] FF Normal [facility] ED Clinical Summaryon 2023 ED Clinical Summary Normal [facility] ED Note-Physicianon 06-22-19 ED Note-Physician Normal [facility] Comment on above: Result Comment: Elec tronically Signed By: Susu Lamar PA-C\.br\Date and Time Signed: 06/22/23 15:59 EDT\.br\Electronically Co-Signed By: Nikhil Tubbs DO\.br\Date and Time Co-Signed: 06/22/23 18:54 EDT ED Patient Education Noteon 06-22-2023 ED Patient Education Note Normal [facility] ED Patient Summaryon 024 ED Patient Summary Normal [facility] HEMATOLOGYOrdered By: SYSTEM SYSTEM on 06-22-2023 Monocytes/100 WBC (Bld) 3.2 % Low 4.0 - 14.0 % Remisol Heme HIV-1/2 Ag/Ab Comboon 2023 HIV 1+2 Ab and HIV1 p24 Ag IA.rapid Nom (S/P/Bld) Negative Normal Negative [facility] Comment on above: Performed By: #### 8 [id number] ####[address] [place] [address] HIV 1+2 Ab+HIV1 p24 Ag IA Ql Non-Reactive Normal Non-Reactive [facility] Comment on above: Performed By: #### 8 17448145 ####[place] HIV Combo Internal Control Line Reactive Normal Reactive [facility] Comment on above: Performed By: #### 8 46191695 ####[address] HIV-1/2 Ag/Ab Combo Negative for HIV-1 and/or HIV-2 antibodies and HIV-1 p24 antigen. Normal Negative [facility] Influenza A&B Agon Influenzae A Ag Negative Normal Negative [facility] Comment on above: Performed By: #### 1 2257337, [id number] ####[address] [address] Influenzae B Ag Negative Normal Negative [facility] Comment on above: Result Comment: Test sensitivity and specificity vary for age group, specimen type, antigen types, and prevalence of disease. Test results must be evaluated in conjunction with other clinical data available to the physician. Individuals who received nasally administered Influenza A vaccine may have positive test results up to 3 days after vaccination. Performed By: #### 1 5089997, [id number] ####[address] [place] [address] Lactic AcidOrdered By: Chiquita Michaud on 06-22-2023 Lactic Acid Lvl 1.4 mmol/L Normal 0.5-2.2 Remisol Chem Comment on above: Performed By: #### 2 618920, 8212413, 0185455, 3096805, 43877698, 74706438, 61409161, 1629825 ####[facility] [address] [place] [address] Lipase Levelon 06-22-2023 Lipase [Catalytic activity/Vol] U/L Low 13-58 [facility] Comment on above: Performed By: #### 2 016652, 8216796, 5580649, 7817440, 19112216, 41452511, 62082453, 2046917 ####[facility] [address] [place] [address] MICRO OTHER TESTSOrdered By: Allen Hansen on 06-22-2023 Influenzae A Ag Negative (06/22/23 2:59 PM) Normal Negative [facility] Man Sero Influenzae B Ag Negative 2 (06/22/23 2:59 PM) Normal Negative [facility] Man Sero Comment on above: Interpretive Data: T est sensitivity and specificity vary for age group, specimen type, antigen types, and prevalence of disease. Test results must be evaluated in conjunction with other clinical data available to the physician. Individuals who received nasally administered Influenza A vaccine may have positive test results up to 3 days after vaccination. Rapid COV Int NEG Ctl Pass (06/22/23 2:59 PM) Normal [facility] Man Sero Rapid COV Int POS Ctl Pass (06/22/23 2:59 PM) Normal [facility] Sero SARS-CoV+SARS-CoV-2 (COVID-19) Ag IA.rapid Ql (Resp) Not Detected 7 (06/22/23 2:59 PM) Normal Not Detected [facility] Man Sero Comment on above: Interpretive Data: T he iZettle Veritor System for Rapid Detection of SARS-CoV-2 is a chromatographic digital immunoassay intended for the direct and qualitative detection of SARS-CoV-2 nucleocapsid antigens in nasal swabs from individuals who are suspected of COVID-19 by their healthcare provider within the first five days of the onset of symptoms. Negative results should be treated as presumptive, do not rule out SARS-CoV-2 infection and should not be used as the sole basis for treatment or patient management decisions, including infection control decisions. Negative results should be considered in the context of a patient s recent exposures, history and the presence of clinical signs and symptoms consistent with COVID-19, and confirmed with a molecular assay, if necessary, for patient management. For in vitro diagnostic use. In the [place], only for use under an Emergency Use Authorization. In the [place], this test has not been FDA cleared or approved; this test has been authorized by FDA under an EUA for use by authorized laboratories; use by laboratories certified under the CLIA, 42 U.S.C. 263a, that meet requirements to perform moderate, high, or waived complexity tests and at the Point of Care (POC), i.e., in patient care settings operating under a CLIA Certificate of Waiver, Certificate of Compliance, or Certificate of Accreditation. This test has been authorized only for the detection of proteins from SARS-CoV-2, not for any other viruses or pathogens; and, in the [place], this test is only authorized for the duration of the declaration that circumstances exist justifying the authorization of emergency use of in vitro diagnostics for detection and/or diagnosis of the virus that causes COVID-19 under Section 564(b)(1) of the Act, 21 U.S.C. 360bbb-3(b)(1), unless the authorization is terminated or revoked sooner. MagnesiumOrdered By: SYSTEM SYSTEM on 06-22-2023 Magnesium [Mass/Vol] 1.8 mg/dL Normal 1.3-2.4 Donnie die[facility] Chem Comment on above: Performed By: #### 2 881497, 1810250, 6725964, 9519346, 84054984, 76234312, 26023310, 2332416 ####[facility] [address] [place] [address] PT & PTTon 06-22-2023 aPTT Coag (PPP) [Time] 36.0 second(s) Normal 25.1-36.5 [facility] Comment on above: Result Comment: Para meter 15 days - 4 weeks 1 - 5 months 6 - 11 months 1 - 5 years 6 - 10 years 11 - 17 years PTT Mean: 35.4 (27.6-45.6) Mean: 33.5 (24.8-40.7) Mean: 32.4 (25.1-40.7) Mean: 31.6 (24.0-39.2) Mean: 31.6 (26.9-38.7) Mean: 31.0 (24.6-38.4) Pediatric Reference ranges were obtained from a study by Chidi Valera et al. prepared from 1437 samples obtained at 7 different centers using the same coagulation reagent and instrumentation as [facility]. Currently there are no coagulation studies available worldwide for children to 14 days, and no normal ranges. Heparin therapeutic range (represented by Anti-Factor Xa activity of 0.2 - 0.4 U/mL) corresponds to PTT of 56.6 - 109.0 sec. Performed By: #### 2 105343, 1428052, 7690534, 2243419, 86987227, 94763805, 77284875, 2769091 ####[facility] [address] [place] [address] PT Coag (PPP) [Time] 10.7 second(s) Normal 9.4-12.5 [facility] Comment on above: Result Comment: 15 d ays - 4 weeks 1 - 5 months 6 -11 months 1 ? 5 years 6 ? 10 years 11 -17 years Mean: 11.2 (9.5 ? 12.6) Mean: 11.0 (9.7 ? 12.8) Mean: 11.0 (9.8 ? 13.0) Mean: 11.3 (9.9 ? 13.4) Mean: 11.7 (10.0 ? 14.6) Mean: 11.8 (10.0 - 14.1) Pediatric Reference ranges were obtained from a study by Chidi Valera et al. prepared from 1437 samples obtained at 7 different centers using the same coagulation reagent and instrumentation as [facility]. Currently there are no coagulation studies available worldwide for children to 14 days, and no normal ranges. Performed By: #### 2 658618, 2083630, 5702101, 8331032, 32798917, 23197500, 60201364, 8775863 ####[facility] [address] [place] [address] PT & PTTOrdered By: Elke Carrillo on 06-22-2023 INR Coag (PPP) [Relative time] 0.96 {INR} Invalid Interpretation Code [facility] Auto Coag Comment on above: Interpretive Data: I NR results are specifically intended to assess patients stabilized on long-term Anticoagulation therapy suggested INR s Less Intensive Anticoagulation 2.0 3.0 Conventional Range 3.0 4.5 Result Comment: INR results are specifically intended to assess patients stabilized on long-term Anticoagulation therapy suggested INR?s ?Less Intensive Anticoagulation? 2.0 ? 3.0Conventional Range 3.0 ? 4.5 Performed By: #### 2 577173, 1231292, 5075448, 9387992, 13680285, 68948658, 34117435, 4717280 ####[facility] [address] [place] [address] Physician Orderon 06-22-2023 Physician Order [id number]#[id number] FF Normal [facility] RAD - Preliminary Cat Scan R eporton 06-22-2023 RAD - Preliminary Cat Scan Report [id number]#1.00TI FF Normal [facility] Rapid COVID Antigen ([facility])on 06-22-2023 Rapid COV Int NEG Ctl Pass Normal [facility] Comment on above: Performed By: #### 1 4769273, [id number] ####[facility] [address] [place] [address] Rapid COV Int POS Ctl Pass Normal [facility] Comment on above: Performed By: #### 1 4073772, [id number] ####[facility] [address] [place] [address] SARS-CoV+SARS-CoV-2 (COVID-19) Ag IA.rapid Ql (Resp) Not detected Normal Not Detected [facility] Comment on above: Result Comment: The iZettle Veritor? System for Rapid Detection of SARS-CoV-2 is a chromatographic digital immunoassay intended for the direct and qualitative detection of SARS-CoV-2 nucleocapsid antigens in nasal swabs from individuals who are suspected of COVID-19 by their healthcare provider within the first five days of the onset of symptoms. Negative results should be treated as presumptive, do not rule out SARS-CoV-2 infection and should not be used as the sole basis for treatment or patient management decisions, including infection control decisions. Negative results should be considered in the context of a patient?s recent exposures, history and the presence of clinical signs and symptoms consistent with COVID-19, and confirmed with a molecular assay, if necessary, for patient management. For in vitro diagnostic use. In the [place], only for use under an Emergency Use Authorization. In the [place], this test has not been FDA cleared or approved; this test has been authorized by FDA under an EUA for use by authorized laboratories; use by laboratories certified under the CLIA, 42 U.S.C. ?263a, that meet requirements to perform moderate, high, or waived complexity tests and at the Point of Care (POC), i.e., in patient care settings operating under a CLIA Certificate of Waiver, Certificate of Compliance, or Certificate of Accreditation.This test has been authorized only for the detection of proteins from SARS-CoV-2, not for any other viruses or pathogens; and, in the [place], this test is only authorized for the duration of the declaration that circumstances exist justifying the authorization of emergency use of in vitro diagnostics for detection and/or diagnosis of the virus that causes COVID-19 under Section 564(b)(1) of the Act, 21 U.S.C. ? 360bbb-3(b)(1), unless the authorization is terminated or revoked sooner. Performed By: #### 1 0177959, [id number] ####Orr [facility] [place] [address] Troponin 0 Hr.Ordered By: Plisten on 06-22-2023 Troponin 3.10 pg/mL Low 10.10-27.10 [facility] Comment on above: Interpretive Data: T he 95% CI (Confidence Interval) PPV (Positive Predictive Value) for myocardial infarction in females is 38 pg/mL, in males 51 pg/mL. The results should be used in conjunction with clinical conditions of myocardial infarction. ([employer] High Sensitivity Troponin I Instructions For Use, [employer], October 2017) Result Comment: The 95% CI (Confidence Interval) PPV (Positive Predictive Value) for myocardial infarction in females is 38 pg/mL, in males 51 pg/mL. The results should be used in conjunction with clinical conditions of myocardial infarction.([employer] High Sensitivity Troponin I Instructions For Use, [employer], October 2017) Performed By: #### 2 981028, 2694494, 9576891, 5529439, 04512401, 92919899, 62045037, 6148561 ####[address] [place] [address] UA with Cult Rflxon 06-22-19 Color (U) Yellow Normal Yellow [facility] Comment on above: Result Comment: Micr oscopic readings are only performed on those samples that meet specific criteria set forth by [facility]. Performed By: #### 4 [id number] ####[place] [address] UA Clarity Clear Normal Clear [facility] Comment on above: Performed By: #### 4 [id number] ####[place] [address] UA pH 7.0 Invalid Interpretation Code 5.0-9.0 [facility] Comment on above: Performed By: #### 4 [id number] ####[place] [address] UA Protein Trace Abnormal Negative [facility] Comment on above: Performed By: #### 4 [id number] ####[place] [address] UA Spec Desc Clean Catch Normal [facility] Comment on above: Performed By: #### 4 [id number] ####[place] [address] UA Spec Grav 1.028 Invalid Interpretation Code 1.005-1.030 [facility] Comment on above: Performed By: #### 4 [id number] ####[address] [address] UA with Cult RflxOrdered By: SYSTEM SYSTEM on 06-22-2023 Glucose (U) [Mass/Vol] Negative Normal Negative FT UA Auto SS Comment on above: Performed By: #### 4 [id number] ####[address] [address] Ketones Ql (U) Negative Normal Negative FT [facility] Auto SS Comment on above: Performed By: #### 4 [id number] ####[address] [address] UA Blood Negative Normal Negative FT [facility] Auto SS Comment on above: Performed By: #### 4 [id number] ####[address] [address] UA Leuk Est Negative Normal Negative FT [facility] Auto SS Comment on above: Performed By: #### 4 [id number] ####[address] [address] UA Nitrite Negative Normal Negative FT [facility]A Auto SS Comment on above: Performed By: #### 4 [id number] ####[address] [address] UA Urobilinogen Negative Normal Negative FT UA Auto SS Comment on above: Performed By: #### 4 [id number] ####[place] [address] Urobilinogen (U) [Mass/Vol] Negative Normal Negative [facility] UA Auto SS Comment on above: Performed By: #### 4 [id number] ####[place] [address] URINALYSISOrdered By: SYSTEM SYSTEM on 06-22-2023 Color (U) Yellow 1 (06/22/23 3:09 PM) Normal Yellow FT UA Auto SS Comment on above: Interpretive Data: M icroscopic readings are only performed on those samples that meet specific criteria set forth by [facility]. UA Clarity Clear (06/22/23 3:09 PM) Normal Clear FT UA Auto SS UA pH 7.0 *NA* (06/22/23 3:09 PM) Invalid Interpretation Code 5.0 - 9.0 [facility] UA Auto SS UA Protein Trace mg/dL Invalid Interpretation Code Negativemg/d L [facility] UA Auto SS UA Spec Grav 1.028 *NA* (06/22/23 3:09 PM) Invalid Interpretation Code 1.005 - 1.030 [facility] UA Auto SS URINALYSISOrdered By: Susu Lamar on 06-22-2023 UA Spec Desc Clean Catch (06/22/23 3:09 PM) Normal [facility] UA Auto SS Work Phone: eGFROrdered By: KRYSTAL Nguyen on 06-22-2023 eGFR 108 mL/min/1.73 m2 Normal >=59 [facility] Comment on above: Order Comment: Order added by Discern Expert. Performed By: #### 2 521295, 8385986, 3698400, 7309331, 06454593, 62646320, 92328105, 4075458 ####Orr [facility] [address] [place] [address] Hepatic function 2000 panelo n 06-17-2023 Albumin BCP dye [Mass/Vol] 4.0 g/dL Normal 3.4-5.0 [facility] Comment on above: Performed By: #### 5 902-2 #### JOLENE Cantu ([id number]) [facility] ([facility]) [address] [place] [address] ALP [Catalytic activity/Vol] 87 U/L Normal 33-110 [facility] Comment on above: Performed By: #### 5 902-2 #### JOLENE Cantu ([id number]) [facility] ([facility]) [id number] [place] [address] ALT With P-5'-P [Catalytic activity/Vol] 18 U/L Normal 7-45 [facility] Comment on above: Result Comment: Katia ents treated with Sulfasalazine may generate falsely decreased results for ALT. Performed By: #### 5 902-2 #### JOLENE Cantu ([id number]) [facility] ([facility]) [address] [place] [address] AST With P-5'-P [Catalytic activity/Vol] 18 U/L Normal 9-39 [facility] Comment on above: Performed By: #### 5 902-2 #### JOLENE Cantu ([id number]) [facility] ([facility]) [address] [place] [address] Bilirubin [Mass/Vol] 0.5 mg/dL Normal 0.0-1.2 [facility] Comment on above: Performed By: #### 5 902-2 #### JOLENE Cantu ([id number]) [facility] ([facility]) [address] [place] [address] Bilirubin.direct [Mass/Vol] 0.1 mg/dL Normal 0.0-0.3 [facility] Comment on above: Performed By: #### 5 902-2 #### JOLENE Cantu ([id number]) [facility] ([facility]) [id number] [place] [address] Protein [Mass/Vol] 7.0 g/dL Normal 6.4-8.2 [facility] Comment on above: Performed By: #### 5 902-2 #### JOLENE Cantu ([id number]) [facility] ([facility]) [address] [place] [address] Consent for Treatmenton 05-24 Consent for Treatment [id number] F Normal [facility] Discharge Instructionson Discharge Instructions [id number] F Normal [facility] ED Clinical Summaryon 2023 ED Clinical Summary Normal [facility] ED Note-Physicianon 06-15-19 ED Note-Physician [facility] Comment on above: Result Comment: Elec tronically Signed By: Annette Watkins, Balbina Sparks\.br\Date and Time Signed: 06/15/23 18:34 EDT ED Patient Education Noteon 06-15-2023 ED Patient Education Note Normal [facility] ED Patient Summaryon 024 ED Patient Summary Normal [facility] Consent for Treatmenton 05-23 Consent for Treatment [id number] F Normal [facility] Discharge Instructionson Discharge Instructions [id number] F Normal [facility] ED Clinical Summaryon 2023 ED Clinical Summary Normal Osbaldo lopez [facility] ED Note-Physicianon 06-11-19 ED Note-Physician Normal [facility] Comment on above: Result Comment: Elec tronically Signed By: Elisa Sánchez DO.br\Date and Time Signed: 06/11/23 22:47 EDT ED PROVIDER NOTESon 06-11-19 Php Ed Provider Note ED Provider Note: L ast filed note HNO ID: [id number] Author: Allyson Griffiths DO Service: ? Author Type: Physician Filed: 06/11/23 1012 Note Text: I have seen Jerad Tracy with the LOGAN and have personally evaluated this patient myself. I am in agreement with the history and physical examination, past medical history, allergies, medications, and medical decision-making as documented by the LOGAN. I am also in agreement with the workup performed here in the emergency department. I have personally made/approved the management plan and take responsibility for the patient management. Please see documentation by the LOGAN for full H department evaluation, and medical decision-making. Electronically signed by: Allyson Griffiths DO, 06/11/2023 10:12 AM Normal [facility] ED Patient Education Noteon 06-11-2023 ED Patient Education Note Normal [facility] ED Patient Summaryon 024 ED Patient Summary Normal [facility] ED NOTESon 06-08-2023 [facility] Ed Note ED Note: Last filed note HNO ID: [id number] Author: Munira Perez RN Service: ? Author Type: Registered Nurse Filed: 06/08/23 3841 Note Text: Registration called for registration as pt has been up for discharge for 20 min. Normal [facility] ED PROVIDER NOTESon 06-08-19 [facility] Ed Provider Note ED Provider Note: L ast filed note HNO ID: [id number] Author: Flex Jansen PA-C Service: Emergency Medicine Author Type: Physician Hearing Aid Assembly Supervisor Filed: 06/08/23 5674 Note Text: TRIAGE CHIEF COMPLAINT: Chief Complaint Patient presents with Back Pain HPI: Jerad Tracy is a 48 year old female who presents to the emergency department with a chief complaint of low back pain, this has been a chronic issue however she rode in a long car ride yesterday, visiting family, concerned she may have exacerbated her pain. Does have known bulging disc at L4-L5. No loss of bladder or bowel function, no saddle anesthesia. Did ibuprofen with no relief. No history of IV drug use, no history of fevers chills. REVIEW OF SYSTEMS: Otherwise Negative PAST MEDICAL HISTORY: History reviewed. No pertinent past medical history. FAMILY HISTORY: History reviewed. No pertinent family history. SOCIAL HISTORY: Social History Socioeconomic History Marital status: Legally Spouse name: Not on file Number of children: Not on file Years of education: Not on file Highest education level: Not on file Occupational History Not on file Tobacco Use Smoking status: Every Day Packs/day: .5 Types: Cigarettes Smokeless tobacco: Never Substance and Sexual Activity Alcohol use: Not on file Drug use: Never Sexual activity: Not on file Other Topics Concern Not on file Social History Narrative Not on file Social Determinants of Health Financial Resource Strain: Not on file Food Insecurity: Not on file Transportation Needs: Not on file Physical Activity: Not on file Stress: Not on file Social Connections: Not on file Intimate Partner Violence: Not on file Housing Stability: Not on file SURGICAL HISTORY: History reviewed. No pertinent surgical history. CURRENT MEDICATIONS: Home medications reviewed. ALLERGIES: Hydrocodone-acetaminophe n and Penicillin g PHYSICAL EXAM: VITAL SIGNS: Visit Vitals Pulse 88 Temp 97.8 F (36.6 C) Resp 18 Ht 1.6 m (5' 3 ) Wt 113.4 kg (250 lb) SpO2 98% BMI 44.29 kg/m? OB Status Postmenopausal Smoking Status Every Day BSA 2.24 m? CONSTITUTIONAL: Awake, oriented, appears non-toxic HENT: Atraumatic, normocephalic, oral mucosa pink and moist, airway patent EYES: Conjunctiva clear NECK: Trachea midline, non-tender, supple BACK: Minimal bilateral low back tenderness, no CVA tenderness SKIN: Warm, Dry, No erythema, No rash EXTREMITIES: No clubbing, cyanosis, or edema NEUROLOGIC: Non-focal, CN 2-12 intact, patient ambulating without issue, no foot drop. Labs Reviewed - No data to display ED COURSE / MEDICAL DECISION MAKING: Patient presents with acute on chronic low back pain, exacerbated after long car ride yesterday. Is able to ambulate, no loss of bladder or bowel function, no saddle anesthesia. Discussed with attending who did evaluate patient [id number], developed plan for pain control here, will be given fentanyl dose here with [place]. Being prescription for Percocet. Encourage rest hydration outpatient follow-up as discussed, close return precautions if symptoms get worse. Did discuss with attending, Allyson Griffiths DO, who did evaluate patient [id number]. Patient otherwise stable at this time, vital signs are stable, patient afebrile, and nontoxic in appearance. Attending physician available for immediate consultation throughout entire patient's stay. Decision to Disposition Home or Admit: Discharge FINAL IMPRESSION: 1. Bilateral low back pain Normal [facility] ED TRIAGEon 06-08-2023 [facility] Ed Triage Note ED Triage Note: Last filed note HNO ID: [id number] Author: Cheryl Joiner RN Service: Emergency Medicine Author Type: Registered Nurse Filed: 06/08/23 8817 Note Text: Pt arrives via triage for complaints of lower back apin. Pt states she has hx of bulging disc and states that she was in the car for a long time and thinks that it aggravated her pain more. Normal [facility] ED Note-Physicianon 06-04-19 ED Note-Physician Normal [facility] Comment on above: Result Comment: Elec tronically Signed By: Landon Tidwell PA-C\.br\Date and Time Signed: 06/03/23 19:41 EDT\.br\Electronically Co-Signed By: Pedro Pablo Fletcher DO\.br\Date and Time Co-Signed: 06/04/23 01:40 EDT Consent for Treatmenton 05-23 Consent for Treatment [id number] F Normal [facility] Discharge Instructionson Discharge Instructions [id number] IFF Normal [facility] ED Clinical Summaryon 2023 ED Clinical Summary Normal Tommy juan [facility] ED Patient Education Noteon 06-03-2023 ED Patient Education Note Normal [facility] ED Patient Summaryon 024 ED Patient Summary Normal [facility] Alanine aminotransferase [En zymatic activity/volume] in Serum or PlasmaOrdered By: Deb Carmichael on 06-01-2023 ALT [Catalytic activity/Vol] 14 U/L Normal 7-52 [facility] Comment on above: Performed By: #### L IPASE, HEPATIC, BMP, CBC #### [facility] [address] [place] [address] [place] Albumin [Mass/volume] in Ser um or Plasma by Bromocresol green (BCG) dye binding methoOrdered By: Deb Carmichael on 06-01-2023 Albumin BCG dye [Mass/Vol] 4.2 g/dL 3.5-5.7 [facility] Alkaline phosphatase [Enzyma tic activity/volume] in Serum or PlasmaOrdered By: Deb Carmichael on 06-01-2023 ALP [Catalytic activity/Vol] 69 U/L Normal 34-104 [facility] Comment on above: Performed By: #### L IPASE, HEPATIC, BMP, CBC #### [facility] [address] Aspartate aminotransferase [ Enzymatic activity/volume] in Serum or PlasmaOrdered By: Deb Carmichael on 06-01-2023 AST [Catalytic activity/Vol] 16 U/L Normal 13-39 [facility] Comment on above: Result Comment: PERF ORMED BY: [facility] [address] [place] [address] PATHOLOGIST COMPUTER EDUCATION PROFESSOR JASON WILSON M.D. Performed By: #### R EDRAW DBILi, REDRAW AST, REDRAW K ####[facility] Ceq[address] Automated basophil %Ordered By: Deb Carmichael on 06-01-2023 Basophils/100 WBC (Bld) 0.4 % Normal . [facility] Comment on above: Performed By: #### L IPASE, HEPATIC, BMP, CBC #### [facility] [address] [place] [address] [place] Automated basophil countOrde red By: Deb Carmichael on 06-01-2023 Basophils (Bld) [#/Vol] 0.0 10*3/uL Normal 0.0-0.2 [facility] Comment on above: Result Comment: PERF ORMED BY: [place] [address] PATHOLOGIST COMPUTER EDUCATION PROFESSOR JASON WILSON M.D. Performed By: #### L IPASE, HEPATIC, BMP, CBC #### [address] Automated blood monocyte cou ntOrdered By: Deb Carmichael on 06-01-2023 Monocytes (Bld) [#/Vol] 0.6 10*3/uL Normal 0.0-0.8 [facility] Comment on above: Performed By: #### L IPASE, HEPATIC, BMP, CBC #### [facility] [address] [place] [address] Automated eosinophil %Ordere d By: Deb Carmichael on 06-01-2023 Eosinophils/100 WBC (Bld) 2.6 % Normal . [facility] Comment on above: Performed By: #### L IPASE, HEPATIC, BMP, CBC #### [facility] [address] [place] [address] Automated eosinophil countOr dered By: Deb Carmichael on 06-01-2023 Eosinophils (Bld) [#/Vol] 0.3 10*3/uL Normal 0.0-0.45 [facility] Comment on above: Performed By: #### L IPASE, HEPATIC, BMP, CBC #### [facility] [address] [place] [address] Automated monocyte %Ordered By: Deb Carmichael on 06-01-2023 Monocytes/100 WBC (Bld) 6.0 % Normal . F [facility] Comment on above: Performed By: #### L IPASE, HEPATIC, BMP, CBC #### [facility] [address] [place] [address] Automated neutrophil %Ordere d By: Deb Carmichael on 06-01-2023 Neutrophils/100 WBC (Bld) 60.6 % Normal . [facility] Comment on above: Performed By: #### L IPASE, HEPATIC, BMP, CBC #### [facility] [address] Automated urine color determ inationOrdered By: PROVIDER TEMP on 06-01-2023 Color (U) Yellow Normal Yellow [facility] Comment on above: Order Comment: Name Collection Type:: Clean-Voided Midstream Performed By: #### U A ####[place] [id number] [address] Basic Metabolic Panelon Anion gap [Moles/Vol] Not performed Normal 6.0-15.0 [facility] Comment on above: Performed By: #### L IPASE, HEPATIC, BMP, CBC ####[place] [id number] [address] Creatinine Clr Calc Pharmacy 122.15 Normal [facility] Comment on above: Performed By: #### L IPASE, HEPATIC, BMP, CBC ####[place] [address] [address] GFR/1.73 sq M.predicted MDRD (S/P/Bld) [Vol rate/Area] mL/min/{1.73_m2} Normal [facility] Comment on above: Performed By: #### L IPASE, HEPATIC, BMP, CBC ####[address] Potassium Normal 3.5-5.1 [facility] Comment on above: Result Comment: Spec imen hemolyzed, redraw requested Performed By: #### L IPASE, HEPATIC, BMP, CBC ####[address] Bilirubin Test strip Ql (U)O rdered By: PROVIDER TEMP on 06-01-2023 Bilirubin Ql (U) Negative Negative [facility] Bilirubin.direct [Mass/volum e] in Serum or PlasmaOrdered By: Deb Carmichael on 06-01-2023 Bilirubin.direct [Mass/Vol] 0.10 mg/dL 0.03-0.18 [facility] Bilirubin.total [Mass/volume ] in Serum or PlasmaOrdered By: Deb Carmichael on 06-01-2023 Bilirubin [Mass/Vol] 0.5 mg/dL Normal 0.3-1.0 [facility] Comment on above: Performed By: #### L IPASE, HEPATIC, BMP, CBC #### [facility] [address] abdomen pelvis w conon CT abdomen pelvis w con [facility] [address] [place] [address] [place] [address] CT Scan Report Signed Patient: Jerad Tracy MR#: [id number] 49 : 1975 Acct:[id number] Age/Sex: 48 / F ADM Date: 06/01/23 Loc: ER Room: Type: [facility] ER Attending Dr: Copies to: Deb Carmichael APRN Ordering Provider: Deb Carmichael APRN Date of Service: 06/01/23 CT/CT abdomen pelvis w con: pain CT ABDOMEN AND PELVIS WITH CONTRAST COMPARISON: 03/19/2022 CLINICAL DATA: Right upper quadrant pain with nausea and vomiting. History of cirrhosis. Spiral images were obtained through the abdomen and pelvis following 90 mL of Isovue-300. This CT exam was performed using one or more following dose reduction techniques: Automated exposure control, adjustment of the mA and/or kV according to patient size, or use of iterative reconstruction technique. Limited cuts through the lung bases show no contributory findings. The gallbladder is surgically absent. No common duct stones are identified. No intrahepatic masses are seen. The spleen and pancreas show no acute findings. There is similar low-density bilateral adrenal nodularity. Symmetric renal nephrograms are visualized. No hydronephrosis is present. There is minor atherosclerotic plaque at the aorta and iliac arteries. There are similar abdominal lymph nodes. No ascites is noted. The small bowel loops are not distended. There is air and stool within the colon, greater on the right. Degenerative changes are visualized at the spine, greatest at the facets. Images through the pelvis show normal caliber small bowel loops. No appendiceal inflammation is seen. There is a small amount of distal colonic stool. No diverticular disease is noted. The uterus is surgically absent. There is a left ovarian cyst measuring approximately 3 cm cm in size. Tubal ligation clips are present. No bladder abnormalities are seen. There is no ascites. CT/CT abdomen pelvis w con IMPRESSION: SIMILAR ADRENAL NODULARITY. NO BOWEL OR URINARY TRACT OBSTRUCTION. 3 CM LEFT OVARIAN CYST. NO ACUTE FINDINGS. Impression dictated by: Idalia Juarez M.D.06/01/2023 3:07 PM Dictation Location: [place] [address] Transcribed By: [facility] 06/01/23 1507 Dictated By: Idalia Juarez MD 06/01/23 1501 Signed By: 06/01/23 1507 Normal [facility] Physician [facility] Calcium [Mass/volume] in Ser um or PlasmaOrdered By: Deb Carmichael on 06-01-2023 Calcium [Mass/Vol] 9.0 mg/dL Normal 8.6-10.3 [facility] Comment on above: Performed By: #### L IPASE, HEPATIC, BMP, CBC ####[facility] [address] Carbon dioxide, total [Moles /volume] in Serum or PlasmaOrdered By: Deb Carmichael on 06-01-2023 CO2 [Moles/Vol] 25.6 mmol/L Normal 21.0-31.0 [facility] Comment on above: Performed By: #### L IPASE, HEPATIC, BMP, CBC ####[place] [id number] [place] [id number] [facility] Chloride [Moles/volume] in S saw or PlasmaOrdered By: Deb Carmichael on 06-01-2023 Chloride [Moles/Vol] 102 mmol/L Normal 98-107 [facility] Comment on above: Performed By: #### L IPASE, HEPATIC, BMP, CBC ####[facility] Tyw[address]395 [place] [id number] [facility] Complete Blood Count Auto Di ffon 06-01-2023 Mean Corpuscular HGB Conc 33.9 g/dL Normal 32.0-35.0 [facility] Comment on above: Performed By: #### L IPASE, HEPATIC, BMP, CBC #### [facility] [address] [place] [address] [place] Monocytes/100 WBC (Bld) 18.80 % Normal 0.00-20.00 T ned [facility] Comment on above: Performed By: #### L IPASE, HEPATIC, BMP, CBC #### [facility] [address] NRBC% 0.1 /100{WBC} Normal 0-0.5 [facility] Comment on above: Performed By: #### L IPASE, HEPATIC, BMP, CBC #### [facility] [address] Creatinine [Mass/volume] in Serum or PlasmaOrdered By: Deb Carmichael on 06-01-2023 Creatinine [Mass/Vol] 0.64 mg/dL Normal 0.60-1.20 [facility] Comment on above: Performed By: #### L IPASE, HEPATIC, BMP, CBC ####[facility] Dyx0727 [place] [id number] [facility] ECG 12 lead ECGon 06-01-2023 ECG 12 lead ECG [facility] [place] [address] [place] [address] Electrocardiograph Report Signed Patient: Jerad Tracy MR#: [id number] 49 : 1975 Acct:[id number] Age/Sex: 48 / F ADM Date: 06/01/23 Loc: ER Room: Type: [facility] ER Attending Dr: Ordering Provider: Deb Carmichael APRN Date of Service: 06/01/2312/16/1353 ECG/ECG 12 lead ECG: Abdominal Pain Copies to: Test Reason : Blood Pressure : / mmHG Vent. Rate : 078 BPM Atrial Rate : 078 BPM P-R Int : 144 ms QRS Dur : 086 ms QT Int : 408 ms P-R-T Axes : 054 050 042 degrees QTc Int : 465 ms Normal sinus rhythm Normal ECG When compared with ECG of 22-SEP-2022 22:20, No significant change was found Confirmed by VLAD MARTINEZ DO ([id number]) on 06/01/2023 6:34:55 PM Referred By: Electronically Signed By:VLAD MARTINEZ DO Transcribed By: MUS Signed By Vlad Martinez DO 1834 Normal [facility] ED Note-Physicianon 06-01-19 ED Note-Physician Normal [facility] Comment on above: Result Comment: Elec tronically Signed By: Robert Taylor PA-C\.br\Date and Time Signed: 05/31/23 18:10 EST\.br\Electronically Co-Signed By: Jorge Mcintosh DO\.br\Date and Time Co-Signed: 06/01/23 07:39 EST Erythrocyte distribution wid th [Ratio] by Automated countOrdered By: Deb Carmichael on 06-01-2023 Erythrocyte distribution width (RBC) [Ratio] 13.4 % Normal 11.9-15.3 [facility] Comment on above: Performed By: #### L IPASE, HEPATIC, BMP, CBC #### [facility] [address] Erythrocytes [#/volume] in B lood by Automated countOrdered By: Deb Carmichael on 06-01-2023 RBC (Bld) [#/Vol] 4.75 10*6/uL Normal 3.60-5.00 [facility] Comment on above: Performed By: #### L IPASE, HEPATIC, BMP, CBC #### [facility] [address] Glucose [Mass/volume] in Ser um or PlasmaOrdered By: Deb Carmichael on 06-01-2023 Glucose [Mass/Vol] 92 mg/dL Normal 70-100 [facility] Comment on above: ADA recommended refe rence rangeRandom Glucose Reference Range is dependent on time and content of last meal. Glucose of more than 200 mg/dL in a nonstressed, ambulatory subject supports the diagnosis of Diabetes Mellitus. Result Comment: [place] Glucose Reference Range is dependent on time and content of last meal. Glucose of more than 200 mg/dL in a nonstressed, ambulatory subject supports the diagnosis of Diabetes Mellitus. ADA recommended reference range Performed By: #### L IPASE, HEPATIC, BMP, CBC ####[facility] [id number] Hematocrit [Volume Fraction] of Blood by Automated countOrdered By: Deb Carmichael on 06-01-2023 Hematocrit (Bld) [Volume fraction] 44.7 % Normal 34.0-46.4 [facility] Comment on above: Performed By: #### L IPASE, HEPATIC, BMP, CBC #### [address] Hemoglobin [Mass/volume] in BloodOrdered By: Deb Carmichael on 06-01-2023 Hemoglobin (Bld) [Mass/Vol] 15.1 g/dL Normal 11.8-15.4 [facility] Comment on above: Performed By: #### L IPASE, HEPATIC, BMP, CBC #### [address] Hepatic Panelon 06-01-2023 Albumin [Mass/Vol] 4.2 g/dL Normal 3.5-5.7 [facility] Comment on above: Performed By: #### L IPASE, HEPATIC, BMP, CBC #### [address] Aspartate Amino Transferase Normal 13-39 [facility] Comment on above: Result Comment: Spec imen hemolyzed, redraw requested Performed By: #### L IPASE, HEPATIC, BMP, CBC #### [address] Bilirubin,Direct Normal 0.03-0.18 [facility] Comment on above: Result Comment: Spec imen hemolyzed, redraw requested Performed By: #### L IPASE, HEPATIC, BMP, CBC #### [address] Bilirubin,Indirect Not performed Normal [facility] Comment on above: Performed By: #### L IPASE, HEPATIC, BMP, CBC #### [address] Ketones Auto test strip (U) [Mass/Vol]Ordered By: PROVIDER TEMP on 06-01-2023 Ketones (U) [Mass/Vol] Negative Negative [facility] Leukocytes [#/volume] correc lisa for nucleated erythrocytes in Blood by Automated counOrdered By: Deb Carmichael on 06-01-2023 WBC corrected for nucl RBC Auto (Bld) [#/Vol] 10.7 10*3/uL 3.8-11.6 [facility] Leukocytes [#/volume] in Blo od by Automated countOrdered By: Deb Carmichael on 06-01-2023 WBC (Bld) [#/Vol] 10.7 10*3/uL Normal 3.8-11.6 [facility] Comment on above: Performed By: #### L IPASE, HEPATIC, BMP, CBC #### [facility] [address] [place] [address] [place] Lipase [Enzymatic activity/v olume] in Serum or PlasmaOrdered By: Deb Carmichael on 06-01-2023 Lipase [Catalytic activity/Vol] 13.0 U/L Normal 11.0-82.0 [facility] Comment on above: Result Comment: PERF ORMED BY: [facility] [address] [place] [address] PATHOLOGIST COMPUTER EDUCATION PROFESSOR JASON WILSON M.D. Performed By: #### L IPASE, HEPATIC, BMP, CBC ####[facility] [address] [place] [address] [place] Lymphocytes [#/volume] in Bl ood by Automated countOrdered By: Deb Carmichael on 06-01-2023 Lymphocytes (Bld) [#/Vol] 3.2 10*3/uL Normal 1.00-4.8 [facility] Comment on above: Performed By: #### L IPASE, HEPATIC, BMP, CBC #### [facility] [address] [place] [id number] [place] Lymphocytes/100 leukocytes i n Blood by Automated countOrdered By: Deb Carmichael on 06-01-2023 Lymphocytes/100 WBC (Bld) 30.4 % Normal . [facility] Comment on above: Performed By: #### L IPASE, HEPATIC, BMP, CBC #### [facility] [address] MCH [Entitic mass] by Automa lisa countOrdered By: Deb Carmichael on 06-01-2023 MCH (RBC) [Entitic mass] 31.8 pg Normal 24.7-34.3 [facility] Comment on above: Performed By: #### L IPASE, HEPATIC, BMP, CBC #### [facility] [address] [place] [address] MCHC Auto (RBC) [Mass/Vol]Or dered By: Deb Carmichael on 06-01-2023 MCHC (RBC) [Mass/Vol] 33.9 g/dL 32.0-35.0 [facility] MCV [Entitic volume] by Auto mated countOrdered By: Deb Carmichael on 06-01-2023 MCV (RBC) [Entitic vol] 94.0 fL Normal 80-100 F [facility] Comment on above: Performed By: #### L IPASE, HEPATIC, BMP, CBC #### [facility] [address] [place] [address] Monocyte distribution width [Entitic volume] in Blood by AutomatedOrdered By: Deb Carmichael on 06-01-2023 Monocyte distribution width Auto (Bld) [Entitic vol] 18.80 % 0.00-20.00 [facility] Neutrophils [#/volume] in Bl ood by Automated countOrdered By: Deb Carmichael on 06-01-2023 Neutrophils (Bld) [#/Vol] 6.5 10*3/uL Normal 1.8-7.7 [facility] Comment on above: Performed By: #### L IPASE, HEPATIC, BMP, CBC #### [facility] [address] [place] [address] Nitrite Test strip Ql (U)Ord ered By: PROVIDER TEMP on 06-01-2023 Nitrite Ql (U) Negative Negative [facility] No Panel InformationOrdered By: Deb Carmichael on 06-01-2023 Estimated GFR (CKD-EPI) > 60.0 mL/Min [facility] Creatinine Clearance (Chem 122.15 [facility] Nucleated erythrocytes [Pres ence] in Blood by Automated countOrdered By: Deb Carmichael on 06-01-2023 Nucleated RBC Auto Ql (Bld) 0.1 /100{WBC} 0-0.5 [facility] Platelet mean volume [Entiti c volume] in Blood by Automated countOrdered By: Deb Carmichael on 06-01-2023 Platelet mean volume (Bld) [Entitic vol] 9.0 fL Normal 6.3-10.7 [facility] Comment on above: Performed By: #### L IPASE, HEPATIC, BMP, CBC #### [facility] [address] [place] [address] [place] Platelets [#/volume] in Bloo d by Automated countOrdered By: Deb Carmichael on 06-01-2023 Platelets (Bld) [#/Vol] 311 10*3/uL Normal 150-450 [facility] Comment on above: Performed By: #### L IPASE, HEPATIC, BMP, CBC #### [facility] [address] [place] [address] [place] Potassium [Moles/volume] in Serum or PlasmaOrdered By: Deb Carmichael on 06-01-2023 Potassium [Moles/Vol] 4.2 mmol/L Normal 3.5-5.1 [facility] Comment on above: Performed By: #### R EDRAW DBILi, REDRAW AST, REDRAW K ####[facility] [id number] Protein Auto test strip (U) [Mass/Vol]Ordered By: MOLLY KURTZ on 06-01-2023 Protein (U) [Mass/Vol] Negative Negative [facility] Protein [Mass/volume] in Ser um or PlasmaOrdered By: Deb Carmichael on 06-01-2023 Protein [Mass/Vol] 7.9 g/dL Normal 6.4-8.9 [facility] Comment on above: Performed By: #### L IPASE, HEPATIC, BMP, CBC #### [facility] [address] [place] [address] [place] Redraw Bilirubin,Directon Redraw Bilirubin,Direct 0.10 mg/dL Normal 0.03-0.18 T ned [facility] Comment on above: Performed By: #### R EDRAW DBILi, REDRAW AST, REDRAW K ####[facility] [id number] Serum globulin measurement b y calculation (mass/volume)Ordered By: Deb Carmichael on 06-01-2023 Globulin (S) [Mass/Vol] 3.7 g/dL Normal F [facility] Comment on above: Performed By: #### L IPASE, HEPATIC, BMP, CBC #### [facility] [address] Serum or plasma albumin/glob ulin mass ratioOrdered By: Deb Carmichael on 06-01-2023 Albumin/Globulin [Mass ratio] 1.1 {ratio} Normal [facility] Comment on above: Performed By: #### L IPASE, HEPATIC, BMP, CBC #### [facility] [address] Serum or plasma anion gap de terminationOrdered By: Deb Carmichael on 06-01-2023 Anion gap [Moles/Vol] TNP [facility] Comment on above: Test not performed Serum or plasma non-glucuron idated bilirubin measurement (mass/volume)Ordered By: Deb Carmichael on 06-01-2023 Bilirubin.indirect [Mass/Vol] TNP [facility] Comment on above: Test not performed Sodium [Moles/volume] in Ser um or PlasmaOrdered By: Deb Cramichael on 06-01-2023 Sodium [Moles/Vol] 136 mmol/L Normal 136-145 [facility] Comment on above: Performed By: #### L IPASE, HEPATIC, BMP, CBC ####[facility] Mxm[address] Specific gravity Auto test s trip (U) [Rel density]Ordered By: PROVIDER TEMP on 06-01-2023 Specific gravity (U) [Rel density] 1.015 1.001-1.030 [facility] Troponin I High Sensitivityo n 06-01-2023 Troponin I High Sensitivity 3.5 pg/mL Normal 0.0-15.0 [facility] Comment on above: Result Comment: PERF ORMED BY: [facility] [address] [place] [id number] PATHOLOGIST COMPUTER EDUCATION PROFESSOR JASON WILSON M.D. Performed By: #### H S TROP ####[place] [id number] [facility] Troponin I.cardiac [Mass/vol ume] in Serum or Plasma by Detection limit <= 0.01 ng/Ordered By: Deb Carmichael on 06-01-2023 Troponin I.cardiac DL <= 0.01 ng/mL [Mass/Vol] 3.5 pg/mL 0.0-15.0 [facility] Urea nitrogen [Mass/volume] in Serum or PlasmaOrdered By: Deb Carmichael on 06-01-2023 Urea nitrogen [Mass/Vol] 18 mg/dL Normal 7-25 [facility] Comment on above: Performed By: #### L IPASE, HEPATIC, BMP, CBC ####[place] [id number] [facility] Urinalysison 06-01-2023 Appearance (U) Clear Normal Clear [facility] Comment on above: Order Comment: Name Collection Type:: Clean-Voided Midstream Performed By: #### U A ####[place] [id number] [facility] Bilirubin,Urine Negative Normal Negative [facility] Comment on above: Order Comment: Name Collection Type:: Clean-Voided Midstream Performed By: #### U A ####[address] [address] [facility] Glucose Ql (U) Normal Normal Normal [facility] Comment on above: Order Comment: Name Collection Type:: Clean-Voided Midstream Performed By: #### U A ####[address] [address] [facility] Ketones Ql (U) Negative Normal Negative [facility] Comment on above: Order Comment: Name Collection Type:: Clean-Voided Midstream Performed By: #### U A ####[address] [address] [facility] Leukocyte esterase Test strip Ql (U) Negative Normal Negative [facility] Comment on above: Order Comment: Name Collection Type:: Clean-Voided Midstream Performed By: #### U A ####[address] [address] [facility] Nitrite,Urine Negative Normal Negative [facility] Comment on above: Order Comment: Name Collection Type:: Clean-Voided Midstream Performed By: #### U A ####[address] [address] [facility] Occult Blood,Urine Negative Normal Negative [facility] Comment on above: Order Comment: Name Collection Type:: Clean-Voided Midstream Result Comment: PERF ORMED BY: [facility] [address] [place] [id number] PATHOLOGIST COMPUTER EDUCATION PROFESSOR JASON WILSON M.D. Performed By: #### U A ####[address] [address] [facility] Protein,Urine Negative Normal Negative [facility] Comment on above: Order Comment: Name Collection Type:: Clean-Voided Midstream Performed By: #### U A ####[address] [address] [facility] Specificy [place],Urine 1.015 Normal 1.001-1.030 [facility] Comment on above: Order Comment: Name Collection Type:: Clean-Voided Midstream Performed By: #### U A ####[address] [address] [facility] Urobilinogen,Urine Normal Normal Normal [facility] Comment on above: Order Comment: Name Collection Type:: Clean-Voided Midstream Performed By: #### U A ####[address] [address] [facility] Urine clarity by refractomet ry automatedOrdered By: PROVIDER TEMP on 06-01-2023 Clarity Refractometry automated (U) Clear Clear [facility] Urine glucose measurement by automated test strip (mass/volume)Ordered By: PROVIDER TEMP on 06-01-2023 Glucose Auto test strip (U) [Mass/Vol] Normal mg/dL Normal [facility] Urine hemoglobin detection b y automated test stripOrdered By: PROVIDER TEMP on 06-01-2023 Hemoglobin Auto test strip Ql (U) Negative Negative [facility] Urine leukocyte esterase det ection by automated test stripOrdered By: PROVIDER TEMP on 06-01-2023 Leukocyte esterase Auto test strip Ql (U) Negative Negative [facility] Urine pH measurement by auto mated test stripOrdered By: PROVIDER TEMP on 06-01-2023 pH (U) 7.0 [pH] Normal 5.0-9.0 [facility] Comment on above: Order Comment: Name Collection Type:: Clean-Voided Midstream Performed By: #### U A ####[facility] [id number] Urobilinogen Auto test strip (U) [Mass/Vol]Ordered By: PROVIDER TEMP on 06-01-2023 Urobilinogen (U) [Mass/Vol] Normal mg/dL Normal [facility] XR chest 2V*on 06-01-2023 XR chest 2V* [facility] [place] [address] [place] [address] XRay Report Signed Patient: Jerad Tracy MR#: [id number] 49 : 1975 Acct:[id number] Age/Sex: 48 / F ADM Date: 06/01/23 Loc: ER Room: Type: [facility] ER Attending Dr: Copies to: Deb Carmichael APRN Ordering Provider: Deb Carmichael APRN Date of Service: 06/01/23 XR/XR chest 2V*: Abdominal Pain PA AND LATERAL CHEST: CLINICAL HISTORY: Right upper quadrant abdominal pain COMPARISON: 10/18/2021 There is no focal parenchymal consolidation, effusion or pneumothorax. The cardiac, hilar and mediastinal silhouettes are within normal limits. There is no vascular congestion. The visualized bony thorax is intact. There is mild endplate spurring. XR/XR chest 2V* IMPRESSION: NO ACUTE CARDIOPULMONARY ABNORMALITY. Impression dictated by: Idalia Juarez M.D.06/01/2023 5:24 PM Dictation Location: [place] [address] Transcribed By: [facility] 06/01/231723 Dictated By: Idalia Juarez MD 06/01/231722 Signed By: 06/01/231723 Normal [facility] BMPOrdered By: SYSTEM SYSTEM on 05-31-2023 Anion gap [Moles/Vol] 11 mmol/L Normal 6-16 Rem isol Chem Comment on above: Performed By: #### 2 848159, 0148005, 8138958, 1803753, 68879883, 81431997 ####[place] [address] [place] [address] Calcium [Mass/Vol] 9.0 mg/dL Normal 8.9-11.1 [facility] Comment on above: Performed By: #### 2 490327, 2963409, 1487355, 9095138, 36380169, 28968201 ####[facility] [address] [place] [address] Chloride [Moles/Vol] 104 mmol/L Normal 101-111 [facility] Comment on above: Performed By: #### 2 569630, 7547563, 9384485, 4340102, 41799105, 85999485 ####[facility] [address] [place] [address] CO2 [Moles/Vol] 27 mmol/L Normal 21-31 [facility] Comment on above: Performed By: #### 2 136066, 5126102, 0840541, 6793810, 94641791, 35686850 ####[facility] [address] [place] [address] Creatinine [Mass/Vol] 0.7 mg/dL Normal 0.5-1.3 Rem isol Chem Comment on above: Performed By: #### 2 606182, 6166070, 1201406, 5828908, 35444231, 42710537 ####[facility] [address] [place] [address] Glucose [Mass/Vol] 97 mg/dL Normal 55-199 [facility] Comment on above: Performed By: #### 2 804215, 8610889, 5294385, 9931006, 89046018, 29544404 ####[place] [address] [place] [address] Potassium [Moles/Vol] 3.7 mmol/L Normal 3.5-5.3 Rem isol Chem Comment on above: Performed By: #### 2 249693, 2367515, 6150191, 8527218, 03089624, 10301777 ####[place] [address] [place] [address] Sodium [Moles/Vol] 138 mmol/L Normal 135-145 [facility] Comment on above: Performed By: #### 2 507769, 6108570, 2552343, 0893597, 14655181, 86156376 ####[address] [address] Urea nitrogen [Mass/Vol] 15 mg/dL Normal 5-21 [facility] Comment on above: Performed By: #### 2 947838, 2854979, 1148955, 8503617, 63381555, 32010643 ####[address] [address] BMPon 05-31-2023 Urea nitrogen/Creatinine [Mass ratio] 21 No Units High 10-20 [facility] Comment on above: Performed By: #### 2 760724, 9875154, 0351399, 7259862, 54076257, 90367838 ####[facility] [address] [place] [address] CBC w/ Auto DiffOrdered By: SYSTEM SYSTEM on 05-31-2023 Basophils/100 WBC (Bld) 0.5 % Normal 0.0-2.0 R emisol Heme Comment on above: Performed By: #### 2 703519, 9079239, 6101343, 5815623, 80500083, 69986671 ####[place] [address] Basophils/Leukocytes Auto (Bld) [Pure # fraction] 0.1 E9/L Normal 0.0-0.2 [facility] Comment on above: Performed By: #### 2 155878, 6488880, 5918458, 3993920, 23549523, 29188795 ####[place] [address] Eosinophils (Bld) [#/Vol] 0.2 E9/L Normal 0.0-0.5 [facility] Comment on above: Performed By: #### 2 147238, 7821107, 8620889, 6163787, 22795296, 37292049 ####[place] [address] Eosinophils/100 WBC (Bld) 2.1 % Normal 0.0-8.0 [facility] Comment on above: Performed By: #### 2 651036, 5580053, 8392822, 6823256, 67171583, 01454302 ####[place] [address] Erythrocyte distribution width (RBC) [Ratio] 13.4 % Normal 10.9-14.2 [facility] Comment on above: Performed By: #### 2 066641, 9436112, 2365098, 6391042, 86180043, 54512270 ####[place] [address] Hematocrit (Bld) [Volume fraction] 41.8 % Normal 34.0-46.0 [facility] Comment on above: Performed By: #### 2 599617, 2357570, 8283567, 9616665, 14054844, 04943638 ####[place] [address] [address] Hemoglobin (Bld) [Mass/Vol] 13.9 g/dL Normal 12.0-16.0 [facility] Comment on above: Performed By: #### 2 822377, 2515945, 5696366, 1295545, 94921419, 12064755 ####[address] [address] Lymphocytes (Bld) [#/Vol] 3.6 E9/L Normal 1.0-4.0 [facility] Comment on above: Performed By: #### 2 736182, 2209828, 8691252, 1408108, 02623922, 15140663 ####[address] [address] Lymphocytes/100 WBC (Bld) 32.1 % Normal 14.0-50.0 [facility] Comment on above: Performed By: #### 2 671902, 6410150, 2993993, 9621014, 00925087, 22650650 ####[address] [address] MCH (RBC) [Entitic mass] 31.4 pg Normal 27.0-34.0 [facility] Comment on above: Performed By: #### 2 305582, 8320527, 3349429, 4073431, 89624074, 08859494 ####[address] [address] MCHC (RBC) [Mass/Vol] 33.3 g/dL Normal 31.4-36.0 Rem [facility] Comment on above: Performed By: #### 2 967947, 1755398, 8302234, 9882048, 24785227, 17215673 ####[address] [address] MCV (RBC) [Entitic vol] 94.1 fL Normal 80.0-100.0 R em[facility] Comment on above: Performed By: #### 2 217452, 9164305, 4785906, 1194429, 11709498, 47905039 ####[address] [address] Monocytes (Bld) [#/Vol] 0.6 E9/L Normal 0.2-1.0 R [facility] Comment on above: Performed By: #### 2 574999, 3355782, 9280992, 6377163, 32035815, 80981870 ####[place] [address] [address] Neutrophils (Bld) [#/Vol] 6.8 E9/L Normal 2.0-7.5 [facility] Comment on above: Performed By: #### 2 522634, 1630342, 4740062, 9889263, 96922027, 26950561 ####[place] [address] Neutrophils/100 WBC (Bld) 59.6 % Normal 36.0-75.0 [facility] Comment on above: Performed By: #### 2 218353, 1964357, 0598360, 3158767, 07665317, 07776893 ####[place] [address] [address] Platelet mean volume (Bld) [Entitic vol] 9.2 fL Normal 6.4-10.8 [facility] Comment on above: Performed By: #### 2 520670, 6590918, 3138846, 3216905, 29598489, 50850564 ####[place] [address] [address] Platelets (Bld) [#/Vol] 271.0 E9/L Normal 150.0-500.0 [facility] Comment on above: Performed By: #### 2 375484, 8497940, 3181926, 7539543, 03033299, 13025736 ####[place] [address] [address] RBC (Bld) [#/Vol] 4.4 E12/L Normal 4.3-5.9 [facility] Comment on above: Performed By: #### 2 936115, 0360562, 7307971, 0932668, 27834537, 14954791 ####[place] [address] [address] WBC corrected for nucl RBC Auto (Bld) [#/Vol] 11.4 E9/L High 4.0-11.0 [facility] Comment on above: Performed By: #### 2 509862, 0117179, 7068752, 1140007, 36622992, 50822038 ####[place] [facility] [address] [place] [address] CHEMISTRYOrdered By: SYSTEM SYSTEM on 05-31-2023 Albumin/Globulin [Mass ratio] 1.3 {ratio} Normal 1.1 - 2.2 [facility] ALP [Catalytic activity/Vol] 72 [iU]/d Normal 21 - 98 Int._Unit/L [facility] ALT No additional P-5'-P [Catalytic activity/Vol] 13 [iU]/d Normal 6 - 46 Int._Unit/L [facility] AST [Catalytic activity/Vol] 14 [iU]/d Normal 5 - 43 Int._Unit/L [facility] Urea nitrogen/Creatinine [Mass ratio] 21 mg/mg High 10 - 20 [facility] COAGULATIONOrdered By: Zoë Case on 05-31-2023 aPTT Coag (PPP) [Time] 33.3 s Normal 25.1 - 36.5 second(s) [facility] Auto Coag Comment on above: Interpretive Data: P arameter 15 days - 4 weeks 1 - 5 months 6 - 11 months 1 - 5 years 6 - 10 years 11 - 17 years PTT Mean: 35.4 (27.6-45.6) Mean: 33.5 (24.8-40.7) Mean: 32.4 (25.1-40.7) Mean: 31.6 (24.0-39.2) Mean: 31.6 (26.9-38.7) Mean: 31.0 (24.6-38.4) Pediatric Reference ranges were obtained from a study by Chidi Valera et al. prepared from 1437 samples obtained at 7 different centers using the same coagulation reagent and instrumentation as [facility]. Currently there are no coagulation studies available worldwide for children to 14 days, and no normal ranges. Heparin therapeutic range (represented by Anti-Factor Xa activity of 0.2 - 0.4 U/mL) corresponds to PTT of 56.6 - 109.0 sec. PT Coag (PPP) [Time] 10.8 s Normal 9.4 - 1 2.5 second(s) [facility] Auto Coag Comment on above: Interpretive Data: 1 5 days - 4 weeks 1 - 5 months 6 -11 months 1 5 years 6 10 years 11 -17 years Mean: 11.2 (9.5 12.6) Mean: 11.0 (9.7 12.8) Mean: 11.0 (9.8 13.0) Mean: 11.3 (9.9 13.4) Mean: 11.7 (10.0 14.6) Mean: 11.8 (10.0 - 14.1) Pediatric Reference ranges were obtained from a study by Chidi Valera et al. prepared from 1437 samples obtained at 7 different centers using the same coagulation reagent and instrumentation as [facility]. Currently there are no coagulation studies available worldwide for children to 14 days, and no normal ranges. Consent for Treatmenton Consent for Treatment [id number] F Normal [facility] Discharge Instructionson Discharge Instructions [id number] FF Normal [facility] ED Clinical Summaryon 2023 ED Clinical Summary Normal [facility] ED Patient Education Noteon 05-31-2023 ED Patient Education Note Normal [facility] ED Patient Summaryon 024 ED Patient Summary Normal [facility] HEMATOLOGYOrdered By: SYSTEM SYSTEM on 05-31-2023 Monocytes/100 WBC (Bld) 5.7 % Normal 4.0 - 14.0 % [facility] Hep Func PanelOrdered By: SY STEM SYSTEM on 05-31-2023 Albumin [Mass/Vol] 4.1 g/dL Normal 3.3-5.0 [facility] Comment on above: Performed By: #### 2 185457, 7874099, 9941856, 9485225, 09574506, 31592692 ####[facility] [place] [address] Bilirubin [Mass/Vol] 0.4 mg/dL Normal 0.0-1.1 [facility] Comment on above: Performed By: #### 2 451683, 8531191, 0158813, 1236779, 51709257, 73301338 ####[address] [address] Bilirubin.direct [Mass/Vol] 0.1 mg/dL Normal 0.0-0.4 [facility] Comment on above: Performed By: #### 2 806974, 6230921, 0968845, 1342534, 21952765, 84540096 ####[address] [address] Bilirubin.indirect [Mass or moles/Vol] 0.3 mg/dL Normal 0.1-0.9 [facility] Comment on above: Performed By: #### 2 165155, 5275901, 3064933, 2973883, 78844726, 73594717 ####[address] [address] Globulin (S) [Mass/Vol] 3.1 g/dL Normal 1.4-4.0 R emisol Chem Comment on above: Performed By: #### 2 018145, 2255057, 7612049, 4708639, 43968043, 57134418 ####[address] [address] Protein [Mass/Vol] 7.2 g/dL Normal 6.0-7.8 [facility] Comment on above: Performed By: #### 2 997270, 9537771, 6796295, 7096970, 28420785, 85124154 ####[address] [address] Hep Func Panelon 05-31-2023 Albumin/Globulin (S) [Mass conc ratio] 1.3 Normal 1.1-2.2 [facility] Comment on above: Performed By: #### 2 388273, 7293824, 2120218, 1472881, 29183613, 29154263 ####[address] [place] [address] ALP [Catalytic activity/Vol] 72 Int._Unit/L Normal 21-98 [facility] Comment on above: Performed By: #### 2 317830, 3819476, 8708293, 6991957, 66675668, 66341059 ####[facility] [address] [place] [address] ALT No additional P-5'-P [Catalytic activity/Vol] 13 Int._Unit/L Normal 6-46 [facility] Comment on above: Performed By: #### 2 057292, 8801692, 3435309, 4691811, 93227741, 83521129 ####[facility] [address] [place] [address] AST [Catalytic activity/Vol] 14 Int._Unit/L Normal 5-43 [facility] Comment on above: Performed By: #### 2 540857, 0795577, 8247226, 2886599, 21489230, 70993611 ####[facility] [address] [place] [address] Lipase LevelOrdered By: SYST EM SYSTEM on 05-31-2023 Lipase [Catalytic activity/Vol] 10 U/L Low 13-58 [facility] Comment on above: Performed By: #### 2 883718, 0768039, 1973577, 9918304, 97602102, 39730526 ####[place] [address] [place] [address] PT & PTTon 05-31-2023 aPTT Coag (PPP) [Time] 33.3 second(s) Normal 25.1-36.5 [facility] Comment on above: Result Comment: Para meter 15 days - 4 weeks 1 - 5 months 6 - 11 months 1 - 5 years 6 - 10 years 11 - 17 years PTT Mean: 35.4 (27.6-45.6) Mean: 33.5 (24.8-40.7) Mean: 32.4 (25.1-40.7) Mean: 31.6 (24.0-39.2) Mean: 31.6 (26.9-38.7) Mean: 31.0 (24.6-38.4) Pediatric Reference ranges were obtained from a study by monet Zavala al. prepared from 1437 samples obtained at 7 different centers using the same coagulation reagent and instrumentation as [facility]. Currently there are no coagulation studies available worldwide for children to 14 days, and no normal ranges. Heparin therapeutic range (represented by Anti-Factor Xa activity of 0.2 - 0.4 U/mL) corresponds to PTT of 56.6 - 109.0 sec. Performed By: #### 2 466100, 3849328, 9936925, 0131032, 91201469, 68691725 ####[facility] [address] [place] [address] PT Coag (PPP) [Time] 10.8 second(s) Normal 9.4-12.5 [facility] Comment on above: Result Comment: 15 d ays - 4 weeks 1 - 5 months 6 -11 months 1 ? 5 years 6 ? 10 years 11 -17 years Mean: 11.2 (9.5 ? 12.6) Mean: 11.0 (9.7 ? 12.8) Mean: 11.0 (9.8 ? 13.0) Mean: 11.3 (9.9 ? 13.4) Mean: 11.7 (10.0 ? 14.6) Mean: 11.8 (10.0 - 14.1) Pediatric Reference ranges were obtained from a study by Chidi Valera et al. prepared from 1437 samples obtained at 7 different centers using the same coagulation reagent and instrumentation as [facility]. Currently there are no coagulation studies available worldwide for children to 14 days, and no normal ranges. Performed By: #### 2 679476, 3118356, 6277488, 0004448, 80878691, 30026159 ####[facility] [address] [place] [address] PT & PTTOrdered By: Zoë lucero on 05-31-2023 INR Coag (PPP) [Relative time] 0.96 {INR} Invalid Interpretation Code [facility] Auto Coag Comment on above: Interpretive Data: I NR results are specifically intended to assess patients stabilized on long-term Anticoagulation therapy suggested INR s Less Intensive Anticoagulation 2.0 3.0 Conventional Range 3.0 4.5 Result Comment: INR results are specifically intended to assess patients stabilized on long-term Anticoagulation therapy suggested INR?s ?Less Intensive Anticoagulation? 2.0 ? 3.0Conventional Range 3.0 ? 4.5 Performed By: #### 2 290729, 3112234, 5870691, 3250425, 42305660, 55414185 ####[facility] [address] [place] [address] UA With Cult Reflexon 2023 Bacteria LM Ql (Urine sed) TRACE Normal Trace [facility] Comment on above: Performed By: #### 1 [id number] ####[facility] [address] [place] [address] Bilirubin Ql (U) Negative Normal Negative [facility] Comment on above: Performed By: #### 1 6185275 ####[facility] [address] [place] [address] Clarity (U) CLOUDY Abnormal Clear [facility] Comment on above: Performed By: #### 1 4798825 ####[facility] [address] [place] [address] Color (U) YELLOW Normal Yellow [facility] Comment on above: Performed By: #### 1 [id number] ####[facility] [address] [place] [address] Crystals LM Ql (Urine sed) Present Normal [facility] Comment on above: Performed By: #### 1 8777756 ####[facility] [address] [place] [address] Epithelial cells.squamous LM.HPF (Urine sed) [#/Area] 0-2 Normal 0-2 [facility] Comment on above: Performed By: #### 1 5094386 ####[facility] [address] [place] [address] Glucose Test strip (U) [Mass/Vol] Negative Normal Negative [facility] Comment on above: Performed By: #### 1 4067451 ####[address] [address] Hemoglobin Ql (U) Negative Normal Negative [facility] Comment on above: Performed By: #### 1 8474501 ####[address] [address] Ketones (U) [Mass/Vol] Negative Normal Negative [facility] Comment on above: Performed By: #### 1 5500399 ####[address] [address] [place].plasma/[place]. RBC (Bld) [Mass ratio] 0-3 Normal 0-3 [facility] Comment on above: Performed By: #### 1 5997265 ####[address] [address] Nitrite Ql (U) Negative Normal Negative [facility] Comment on above: Performed By: #### 1 7707997 ####[address] [address] pH (U) 8.0 [pH] Invalid Interpretation Code 5.0-9.0 [facility] Comment on above: Performed By: #### 1 8583102 ####[address] [address] Protein (U) [Mass/Vol] Negative Normal Negative [facility] Comment on above: Performed By: #### 1 2571945 ####[address] [address] Specific gravity (U) [Rel density] 1.015 Invalid Interpretation Code 1.005-1.030 [facility] Comment on above: Performed By: #### 1 4989115 ####[address] [address] Type of Urine collection method Clean Catch Normal [facility] Comment on above: Performed By: #### 1 4363727 ####[address] [address] Urobilinogen Qn (U) 0.2 {Jan'U}/dL Normal 0.0-1.0 [facility] Comment on above: Performed By: #### 1 0641715 ####[facility] [address] [place] [address] WBC Auto Ql (U) Negative Normal Negative [facility] Comment on above: Performed By: #### 1 6310695 ####[facility] [address] [place] [address] WBC LM.HPF (Urine sed) [#/Area] 0-5 Normal 0-5 [facility] Comment on above: Performed By: #### 1 9215799 ####[facility] [address] [place] [address] URINALYSISOrdered By: Zoë gordon on 05-31-2023 Bacteria LM Ql (Urine sed) Trace /HPF Normal Trace/HPF [facility] UA Auto SS Bilirubin Ql (U) Negative (05/31/23 4:53 PM) Normal Negative [facility] UA Auto SS Clarity (U) Cloudy *ABN* (05/31/23 4:53 PM) Invalid Interpretation Code Clear [facility] UA Auto SS Color (U) Yellow (05/31/23 4:53 PM) Normal Yellow [facility] UA Auto SS Crystals LM Ql (Urine sed) Present (05/31/23 4:53 PM) Normal [facility] UA Auto SS Epithelial cells.squamous LM.HPF (Urine sed) [#/Area] 0-2 /HPF Normal 0-2/HPF [facility] UA Auto SS Glucose Test strip (U) [Mass/Vol] Negative (05/31/23 4:53 PM) Normal Negative [facility] UA Auto SS Hemoglobin Ql (U) Negative (05/31/23 4:53 PM) Normal Negative [facility] UA Auto SS Ketones (U) [Mass/Vol] Negative (05/31/23 4:53 PM) Normal Negative [facility] UA Auto SS [place].plasma/[place]. RBC (Bld) [Mass ratio] 0-3 /HPF Normal 0-3/HPF [facility] UA Auto SS Nitrite Ql (U) Negative (05/31/23 4:53 PM) Normal Negative [facility] UA Auto SS pH (U) 8.0 *NA* (05/31/23 4:53 PM) Invalid Interpretation Code 5.0 - 9.0 [facility] UA Auto SS Protein (U) [Mass/Vol] Negative (05/31/23 4:53 PM) Normal Negative [facility] UA Auto SS Specific gravity (U) [Rel density] 1.015 *NA* (05/31/23 4:53 PM) Invalid Interpretation Code 1.005 - 1.030 [facility] UA Auto SS UA Spec Desc Clean Catch (05/31/23 4:53 PM) Normal [facility] UA Auto SS Urobilinogen Qn (U) 0.9920902 {Jan'U}/dL Normal 0.0 - 1.0 EU/dL [facility] UA Auto SS WBC Auto Ql (U) Negative (05/31/23 4:53 PM) Normal Negative [facility] UA Auto SS WBC LM.HPF (Urine sed) [#/Area] 0-5 /HPF Normal 0-5/HPF [facility] UA Auto SS eGFROrdered By: SYSTEM SYSTE Ecast on 05-31-2023 eGFR 108 mL/min/1.73 m2 Normal >=59 [facility] Comment on above: Order Comment: Order added by Discern Expert. Performed By: #### 2 886014, 4036212, 1247803, 5267404, 83754187, 68455969 ####[facility] [address] [place] [address] ED Note-Physicianon 05-27-19 ED Note-Physician Normal [facility] Comment on above: Result Comment: Elec tronically Signed By: Susu Lamar PA-C\.br\Date and Time Signed: 05/26/23 21:33 EST\.br\Electronically Co-Signed By: Pedro Pablo Fletcher DO\.br\Date and Time Co-Signed: 05/27/23 00:01 EST Consent for Treatmenton Consent for Treatment [id number]#1.00TIF F Normal [facility] ED Clinical Summaryon 2023 ED Clinical Summary Normal Osbaldo juan [facility] ED Patient Education Noteon 05-26-2023 ED Patient Education Note Normal [facility] ED Patient Summaryon 024 ED Patient Summary Normal [facility] UA With Cult Reflexon 2023 Bilirubin Ql (U) Negative Normal Negative [facility] Comment on above: Performed By: #### 1 [id number] ####[facility] [address] [place] [address] Clarity (U) CLEAR Normal Clear [facility] Comment on above: Performed By: #### 1 8503139 ####[facility] [address] [place] [address] Color (U) YELLOW Normal Yellow [facility] Comment on above: Performed By: #### 1 6223248 ####[address] [address] Epithelial cells.squamous LM.HPF (Urine sed) [#/Area] 0-2 Normal 0-2 [facility] Comment on above: Performed By: #### 1 6582148 ####[facility] [address] [place] [address] Glucose Test strip (U) [Mass/Vol] Negative Normal Negative [facility] Comment on above: Performed By: #### 1 2109911 ####[facility] [address] [place] [address] Hemoglobin Ql (U) Negative Normal Negative [facility] Comment on above: Performed By: #### 1 9549746 ####[facility] [address] [place] [address] Ketones (U) [Mass/Vol] Negative Normal Negative [facility] Comment on above: Performed By: #### 1 5423503 ####[facility] [address] [place] [address] [place].plasma/[place]. RBC (Bld) [Mass ratio] 0-3 Normal 0-3 [facility] Comment on above: Performed By: #### 1 5281419 ####[facility] [address] [place] [address] Nitrite Ql (U) Negative Normal Negative [facility] Comment on above: Performed By: #### 1 7304026 ####[facility] [address] [place] [address] pH (U) 6.5 [pH] Invalid Interpretation Code 5.0-9.0 [facility] Comment on above: Performed By: #### 1 5280668 ####[place] [address]057 Protein (U) [Mass/Vol] Negative Normal Negative [facility] Comment on above: Performed By: #### 1 1486643 ####[place] [address]057 Specific gravity (U) [Rel density] 1.020 Invalid Interpretation Code 1.005-1.030 [facility] Comment on above: Performed By: #### 1 3675645 ####[place] [address] Type of Urine collection method Clean Catch Normal [facility] Comment on above: Performed By: #### 1 0295933 ####[place] [address]057 Urobilinogen Qn (U) 0.2 {Jan'U}/dL Normal 0.0-1.0 [facility] Comment on above: Performed By: #### 1 5714332 ####[place] [address]69057 WBC Auto Ql (U) Negative Normal Negative [facility] Comment on above: Performed By: #### 1 3758099 ####[place] [address]057 WBC LM.HPF (Urine sed) [#/Area] 0-5 Normal 0-5 [facility] Comment on above: Performed By: #### 1 8222917 ####[place] [address]057 URINALYSISOrdered By: Alfonso Hernandez on 05-26-2023 Bilirubin Ql (U) Negative (05/26/23 8:20 PM) Normal Negative [facility] UA Auto SS Clarity (U) Clear (05/26/23 8:20 PM) Normal Clear [facility] UA Auto SS Color (U) Yellow (05/26/23 8:20 PM) Normal Yellow [facility] UA Auto SS Epithelial cells.squamous LM.HPF (Urine sed) [#/Area] 0-2 /HPF Normal 0-2/HPF [facility] UA Auto SS Glucose Test strip (U) [Mass/Vol] Negative (05/26/23 8:20 PM) Normal Negative [facility] UA Auto SS Hemoglobin Ql (U) Negative (05/26/23 8:20 PM) Normal Negative [facility] UA Auto SS Ketones (U) [Mass/Vol] Negative (05/26/23 8:20 PM) Normal Negative [facility] UA Auto SS [place].plasma/[place]. RBC (Bld) [Mass ratio] 0-3 /HPF Normal 0-3/HPF [facility] UA Auto SS Nitrite Ql (U) Negative (05/26/23 8:20 PM) Normal Negative [facility] UA Auto SS pH (U) 6.5 *NA* (05/26/23 8:20 PM) Invalid Interpretation Code 5.0 - 9.0 [facility] UA Auto SS Protein (U) [Mass/Vol] Negative (05/26/23 8:20 PM) Normal Negative [facility] UA Auto SS Specific gravity (U) [Rel density] 1.020 *NA* (05/26/23 8:20 PM) Invalid Interpretation Code 1.005 - 1.030 [facility] UA Auto SS UA Spec Desc Clean Catch (05/26/23 8:20 PM) Normal [facility] UA Auto SS Urobilinogen Qn (U) 0.8304063 {Jan'U}/dL Normal 0.0 - 1.0 EU/dL [facility] UA Auto SS WBC Auto Ql (U) Negative (05/26/23 8:20 PM) Normal Negative [facility] UA Auto SS WBC LM.HPF (Urine sed) [#/Area] 0-5 /HPF Normal 0-5/HPF [facility] UA Auto SS ED Note-Physicianon 05-25-19 ED Note-Physician Normal [facility] Comment on above: Result Comment: Elec tronically Signed By: Landon Tidwell PA-C\.br\Date and Time Signed: 05/24/23 23:15 EST\.br\Electronically Co-Signed By: Pedro Pablo Fletcher DO.br\Date and Time Co-Signed: 05/25/23 01:59 EST XR Spine Lumbosacral 2 or 3 Viewson 05-25-2023 XR Spine Lumbosacral 2 or 3 Views Normal [facility] Consent for Treatmenton Consent for Treatment [id number]#1.00TIF F [facility] Discharge Instructionson Discharge Instructions [id number]#1.00TIFF Normal [facility] ED Clinical Summaryon 2023 ED Clinical Summary Normal [facility] ED Patient Education Noteon 05-24-2023 ED Patient Education Note Normal [facility] ED Patient Summaryon 024 ED Patient Summary [facility] Hand / UE Inj/Asp: R thumb C MCon 05-20-2023 Belkis Hernandez, DO 05/20/2023 9:07 AM Hand / UE Inj/Asp: R thumb CMC for osteoarthritis on 05/20/2023 8:27 AM Indications: pain Details: 25 G needle, dorsal approach Medications: 5 mg triamcinolone acetonide 10 mg/mL; 0.5 mL lidocaine 10 mg/mL (1 %) Outcome: tolerated well, no immediate complications Right Thumb Carpometacarpal Joint Injection: It was explained to the patient that the risks of a steroid injection include but are not limited to infection, local skin irritation, skin atrophy, calcification, continued pain and discomfort, elevated blood sugar, burning, failure to relieve pain, and possible late infection. The patient verbalized good insight and verbalized consent for the injection. It was further explained that the postinjection discomfort can be alleviated with additional medications, ice, elevation, and rest over the first 24 hours, and that these modalities are recommended. Using aseptic technique, a solution containing 0.5 cc of 5 mg of Kenalog and 0.5 mL of 1% lidocaine without epinephrine was injected intraarticularly to the right thumb carpometacarpal joint. Digital palpation was used to localize the CMC articulation about the dorsal radial aspect of the joint. Gentle traction was then imparted to the thumb distally and a 25-gauge needle was advanced through the skin, subcutaneous tissue and capsule. The injection was then administered and the patient tolerated the injection well. A band-aid was then placed. It should be noted that ethyl chloride spray was used to make the injection delivery more comfortable for the patient. Procedure, treatment alternatives, risks and benefits explained, specific risks discussed. Consent was given by the patient. Immediately prior to procedure a time out was called to verify the correct patient, procedure, equipment, it desktop support specialist and site/side marked as required. Patient was prepped and draped in the usual sterile fashion. [facility] Work Phone: [facility] Work Phone: XR WRIST RIGHT 3+ VIEWSon XR WRIST RIGHT 3+ VIEWS Interpreted By: Belkis Hernandez, STUDY: XR WRIST RIGHT 3+ VIEWS; ; 05/20/2023 8:00 am INDICATION: Signs/Symptoms:Pain. ACCESSION NUMBER(S): [id number] ORDERING CLINICIAN: BELKIS HERNANDEZ FINDINGS: X-rays of the right wrist show no acute fracture or dislocation. Right thumb CMC arthritis. Signed by: Belkis Hernandez 05/20/2023 3:12 PM Dictation workstation: [id number] [facility] Ambulatory ED Note-Physicianon 05-17-19 ED Note-Physician [facility] Comment on above: Result Comment: Elec tronically Signed By: Robert Taylor PA-C\.br\Date and Time Signed: 05/14/23 11:56 EST\.br\Electronically Co-Signed By: Jorge Mcintosh DO\.br\Date and Time Co-Signed: 05/17/23 08:07 EST Correction Documentson 05-17-2023 Correction Documents [id number]#1.00T IFF [facility] Consent for Treatmenton 04-26 Consent for Treatment [id number]#1.00TIF F [facility] Discharge Instructionson Discharge Instructions [id number]#1.00TIF F [facility] ED Clinical Summaryon 2023 ED Clinical Summary Normal [facility] ED Note-Physicianon 05-16-19 ED Note-Physician Normal [facility] Comment on above: Result Comment: Elec tronically Signed By: Robert Taylor PA-C\.br\Date and Time Signed: 05/16/23 16:54 EST\.br\Electronically Co-Signed By: Nikhil Tubbs DO\.br\Date and Time Co-Signed: 05/16/23 17:00 EST ED Patient Education Noteon 05-16-2023 ED Patient Education Note Normal [facility] ED Patient Summaryon 024 ED Patient Summary Normal [facility] Consent for Treatmenton 04-26 Consent for Treatment [id number]#1.00TIF F [facility] Discharge Instructionson Discharge Instructions [id number]#1.00T IFF Normal [facility] ED Clinical Summaryon 2023 ED Clinical Summary Normal [facility] ED Patient Education Noteon 05-14-2023 ED Patient Education Note Normal [facility] ED Patient Summaryon 024 ED Patient Summary Normal [facility] ED Note-Physicianon 05-13-19 ED Note-Physician [facility] Comment on above: Result Comment: Elec tronically Signed By: Landon Tidwell PA-C\.br\Date and Time Signed: 05/11/23 17:24 EST\.br\Electronically Co-Signed By: Jorge Mcintosh DO\.br\Date and Time Co-Signed: 05/13/23 07:06 EST Consent for Treatmenton 04-25 Consent for Treatment [id number]#1.00TIF F Normal [facility] Discharge Instructionson Discharge Instructions [id number]#1.00TI FF Normal [facility] ED Clinical Summaryon 2023 ED Clinical Summary Normal [facility] ED Note-Physicianon 05-12-19 ED Note-Physician Normal [facility] Comment on above: Result Comment: Elec tronically Signed By: Nikhil Tubbs DO\.br\Date and Time Signed: 05/12/23 11:06 EST ED Patient Education Noteon 05-12-2023 ED Patient Education Note Normal [facility] ED Patient Summaryon 024 ED Patient Summary Normal [facility] Consent for Treatmenton 04-25 Consent for Treatment [id number]#1.00TIF F Normal [facility] Discharge Instructionson Discharge Instructions [id number]#1.00TIF F Normal [facility] ED Clinical Summaryon 2023 ED Clinical Summary Normal [facility] ED Patient Education Noteon 05-11-2023 ED Patient Education Note Normal [facility] ED Patient Summaryon 024 ED Patient Summary Normal [facility] XR Hand 3+ Views Righton XR Hand 3+ Views Right Normal Fi [facility] XR Wrist 3+ Views Righton XR Wrist 3+ Views Right Normal F [facility] ED Note-Physicianon 05-09-19 ED Note-Physician Normal [facility] Comment on above: Result Comment: Elec tronically Signed By: Landon Tidwell PA-C\.br\Date and Time Signed: 05/08/23 14:03 EST\.br\Electronically Co-Signed By: Balbina Bryant M.D..br\Date and Time Co-Signed: 05/09/23 07:48 EST BMPOrdered By: SYSTEM SYSTEM on 05-08-2023 Anion gap [Moles/Vol] 12 mmol/L Normal 6-16 Rem isol Chem Comment on above: Performed By: #### 2 930703, 9334532, 6450699, 3402502, 26906320 ####[place] [place] [address] [address] Calcium [Mass/Vol] 8.4 mg/dL Low 8.9-11.1 Remiso l [facility] Comment on above: Performed By: #### 2 678629, 5049533, 3495856, 3306668, 52785621 ####[address] [address] Chloride [Moles/Vol] 105 mmol/L Normal 101-111 [facility] Comment on above: Performed By: #### 2 156200, 6921883, 1905656, 7938741, 93481395 ####[address] [address] CO2 [Moles/Vol] 24 mmol/L Normal 21-31 [facility] Comment on above: Performed By: #### 2 600442, 8016888, 5134842, 4061035, 49368024 ####[address] [address] Creatinine [Mass/Vol] 0.7 mg/dL Normal 0.5-1.3 Rem isol Chem Comment on above: Performed By: #### 2 020771, 4754928, 2354899, 7790862, 22100291 ####[address] [address] Glucose [Mass/Vol] 107 mg/dL Normal 55-199 Rem[facility] Comment on above: Performed By: #### 2 616935, 9885755, 7223400, 3658662, 08227988 ####[address] [address] Potassium [Moles/Vol] 4.1 mmol/L Normal 3.5-5.3 Rem isol Chem Comment on above: Performed By: #### 2 876660, 3404208, 4839505, 0961971, 28186949 ####[address] [address] Sodium [Moles/Vol] 137 mmol/L Normal 135-145 [facility] Comment on above: Performed By: #### 2 982776, 4983442, 3906194, 7472221, 09820377 ####[address] [address] Urea nitrogen [Mass/Vol] 15 mg/dL Normal 5-21 [facility] Comment on above: Performed By: #### 2 585479, 8514360, 4799776, 7440024, 91722456 ####[address] [address] BMPon 05-08-2023 BUN/Creat Ratio 21 No Units High 10-20 [facility] Comment on above: Performed By: #### 2 906479, 2055310, 2716302, 3523500, 81484456 ####[address] [address] CBC w/ Auto DiffOrdered By: SYSTEM SYSTEM on 05-08-2023 Basophil Absolute 0.1 E9/L Normal 0.0-0.2 [facility] Heme Comment on above: Performed By: #### 2 443150, 7250885, 9919780, 2216763, 39342941 ####[address] [address] Basophils/100 WBC (Bld) 0.8 % Normal 0.0-2.0 R emisol Heme Comment on above: Performed By: #### 2 554043, 2063620, 3962481, 2263221, 81098348 ####[address] [address] Eos Absolute 0.2 E9/L Normal 0.0-0.5 [facility] Comment on above: Performed By: #### 2 503502, 6722923, 8743032, 2769422, 14129124 ####[address] [address] Eosinophils/100 WBC (Bld) 2.0 % Normal 0.0-8.0 [facility] Comment on above: Performed By: #### 2 748572, 6348802, 4498551, 3833406, 79186896 ####[facility] [address] [address] Erythrocyte distribution width (RBC) [Ratio] 13.1 % Normal 10.9-14.2 [facility] Comment on above: Performed By: #### 2 520550, 4117643, 6528999, 9215755, 59099750 ####[address] [address] Hematocrit (Bld) [Volume fraction] 44.0 % Normal 34.0-46.0 [facility] Comment on above: Performed By: #### 2 362864, 1213821, 2363089, 6306167, 51968161 ####[place] 5469057 Hemoglobin (Bld) [Mass/Vol] 15.0 g/dL Normal 12.0-16.0 [facility] Comment on above: Performed By: #### 2 825855, 9902048, 2313980, 8725100, 31360825 ####[facility] [address] [address] Lymph Absolute 3.1 E9/L Normal 1.0-4.0 [facility] Comment on above: Performed By: #### 2 590637, 2411948, 0054612, 7066228, 01561009 ####[address] [address] Lymphocytes/100 WBC (Bld) 35.0 % Normal 14.0-50.0 [facility] Comment on above: Performed By: #### 2 255930, 1212140, 1279293, 2384655, 06357907 ####[address] [address] MCH (RBC) [Entitic mass] 32.2 pg Normal 27.0-34.0 [facility] Comment on above: Performed By: #### 2 360794, 8557271, 4686870, 0700109, 56786998 ####[facility] [address] [address] MCHC (RBC) [Mass/Vol] 34.3 g/dL Normal 31.4-36.0 Rem isol Heme Comment on above: Performed By: #### 2 115477, 4328288, 0457842, 3351294, 78247078 ####[address] [address] MCV (RBC) [Entitic vol] 94.0 fL Normal 80.0-100.0 R emisol Heme Comment on above: Performed By: #### 2 300408, 4617073, 4390256, 9225598, 12602118 ####[address] [address] [place] Absolute 0.6 E9/L Normal 0.2-1.0 Rem[facility] Heme Comment on above: Performed By: #### 2 502791, 6309224, 7300534, 1638213, 33648007 ####[place] 5469057 Monocytes/100 WBC (Bld) 6.9 % Normal 4.0-14.0 R emisol Heme Comment on above: Performed By: #### 2 948210, 4830845, 9930921, 1754195, 59502057 ####[address] [address] Neutro Absolute 5.0 E9/L Normal 2.0-7.5 [facility] Comment on above: Performed By: #### 2 933689, 4535018, 6164719, 7132723, 92682215 ####[address] [address] Neutro Auto 55.3 % Normal 36.0-75.0 [facility] Comment on above: Performed By: #### 2 488239, 8577388, 8105820, 9834139, 09981694 ####[address] [address] Platelet 279.0 E9/L Normal 150.0-500.0 Rem[facility] Heme Comment on above: Performed By: #### 2 966241, 0744311, 5545385, 8313668, 46466615 ####[facility] [address] [place] 0435457 Platelet mean volume (Bld) [Entitic vol] 9.1 fL Normal 6.4-10.8 Remisol Heme Comment on above: Performed By: #### 2 617332, 6676167, 5733098, 9630025, 52399362 ####[facility] [address] [place] 0435457 RBC 4.7 E12/L Normal 4.3-5.9 Remisol Heme Comment on above: Performed By: #### 2 284295, 5796145, 9592172, 8953136, 82170150 ####[facility] [address] [place] [address] WBC 9.0 E9/L Normal 4.0-11.0 Remisol Heme Comment on above: Performed By: #### 2 622260, 6438104, 7683051, 6137178, 81692417 ####[facility] [address] [place] [address] CHEMISTRYOrdered By: SYSTEM SYSTEM on 05-08-2023 Alk Phos 80 [iU]/d Normal 21 - 98 Int._Unit/L Remisol Chem ALT 57 [iU]/d High 6 - 46 Int._Unit/L Remisol Chem AST 27 [iU]/d Normal 5 - 43 Int._Unit/L Remisol Chem Urea nitrogen/Creatinine [Mass ratio] 21 mg/mg High 10 - 20 Remisol Chem Consent for Treatmenton 04-25 Consent for Treatment [id number]#1.00TIF F Normal [facility] Discharge Instructionson Discharge Instructions [id number]#1.00TI FF Normal [facility] ED Clinical Summaryon 2023 ED Clinical Summary [facility] Patient Education Noteon 05-08-2023 ED Patient Education Note Normal [facility] ED Patient Summaryon 024 ED Patient Summary Normal [facility] Hep Func PanelOrdered By: LUMI Mask SYSTEM on 05-08-2023 Albumin [Mass/Vol] 4.1 g/dL Normal 3.3-5.0 Remiso l Chem Comment on above: Performed By: #### 2 663238, 0100691, 8825993, 3933935, 28764647 ####[facility] [address] [place] [address] Albumin/Globulin [Mass ratio] 1.3 {ratio} Normal 1.1-2.2 Remisol Chem Comment on above: Performed By: #### 2 655353, 9315302, 4014548, 7488160, 23009783 ####[address] [address] Bili Direct 0.1 mg/dL Normal 0.0-0.4 Remisol Chem Comment on above: Performed By: #### 2 095264, 6102985, 5876314, 2523807, 82014591 ####[facility] [address] [place] [address] Bili Indirect 0.4 mg/dL Normal 0.1-0.9 Remisol Chem Comment on above: Performed By: #### 2 056084, 6811918, 0474839, 8830571, 91345902 ####[address] [place] [address] Bili Total 0.5 mg/dL Normal 0.0-1.1 Remisol Chem Comment on above: Performed By: #### 2 503552, 2521100, 0938153, 2929350, 44998846 ####[address] [place] [address] Globulin (S) [Mass/Vol] 3.2 g/dL Normal 1.4-4.0 R emisol Chem Comment on above: Performed By: #### 2 760272, 5491863, 7926085, 8209812, 81078862 ####[address] [place] [address] Protein [Mass/Vol] 7.3 g/dL Normal 6.0-7.8 Remiso l Chem Comment on above: Performed By: #### 2 240709, 0301456, 9782354, 2579075, 63847621 ####[address] [address] Hep Func Panelon 05-08-2023 Alk Phos 80 Int._Unit/L Normal 21-98 [facility] Comment on above: Performed By: #### 2 398406, 0203746, 2335192, 2824864, 21369116 ####[address] [address] ALT 57 Int._Unit/L High 6-46 [facility] Comment on above: Performed By: #### 2 665462, 1725155, 1145971, 8788579, 72403897 ####[address] [address] AST 27 Int._Unit/L Normal 5-43 [facility] Comment on above: Performed By: #### 2 791066, 2657690, 7336965, 1469532, 76073843 ####[address] [address] Lipase LevelOrdered By: SYST EM SYSTEM on 05-08-2023 Lipase Lvl 26 unit/L Normal 13-58 Remisol Chem Comment on above: Performed By: #### 2 302933, 4285033, 6581310, 8567374, 73599596 ####[facility] [address] [place] [address] eGFROrdered By: SYSTEM SYSTE M on 05-08-2023 eGFR 108 mL/min/1.73 m2 Normal >=59 Remiso l Chem Comment on above: Order Comment: Order added by Discern Expert. Performed By: #### 2 064504, 3269594, 8786908, 5690164, 87390445 ####[address] [address] Discharge Instructionson Discharge Instructions [id number] F [facility] ED Note-Physicianon 05-05-19 ED Note-Physician [facility] Comment on above: Result Comment: Elec tronically Signed By: Landon Tidwell PA-C\.br\Date and Time Signed: 05/04/23 22:33 EST\.br\Electronically Co-Signed By: Pedro Pablo Fletcher DO\.br\Date and Time Co-Signed: 05/05/23 19:43 EST Consent for Treatmenton 04-25 Consent for Treatment [id number] F [facility] ED Clinical Summaryon 2023 ED Clinical Summary Normal [facility] ED Note-Nursingon 05-04-2023 ED Note-Nursing Pt. refused staying for 30 minutes more for observation after receiving pain meds, said she always get immediately discharged after receiving the medications. Demanded leaving at this time. Normal [facility] ED Patient Education Noteon 05-04-2023 ED Patient Education Note Normal [facility] ED Patient Summaryon 024 ED Patient Summary Normal [facility] B hCG Qualon 04-30-2023 Beta HCG ( test) Ql Negative [facility] Comment on above: Performed By: #### 1 4395723, 37174301, 0773844, 9671255, 7574044, 3906270, 8650814 ####[facility] [address] [place] [address] BMPon 04-30-2023 Anion gap [Moles/Vol] 12 mmol/L Normal 6-16 [facility] Comment on above: Performed By: #### 1 7203598, 63285338, 5441888, 1900911, 4542686, 9123636, 6276292 ####[facility] [address] [place] [address] BUN/Creat Ratio 21 No Units High 10- [facility] Comment on above: Performed By: #### 1 9849181, 32442787, 7815453, 6543750, 4068221, 5498077, 8869234 ####[facility] [address] [place] [address] Calcium [Mass/Vol] 8.6 mg/dL Low 8.9-11.1 [facility] Comment on above: Performed By: #### 1 4314229, 03532291, 7991718, 9121199, 4709158, 5286301, 7786347 ####[facility] [address] [place] [address] Chloride [Moles/Vol] 106 mmol/L Normal 101-111 [facility] Comment on above: Performed By: #### 1 3391245, 80153307, 7836613, 4635641, 9004256, 9359930, 2278580 ####[facility] [address] [place] [address] CO2 [Moles/Vol] 24 mmol/L Normal 21-31 [facility] Comment on above: Performed By: #### 1 6394986, 85204315, 7521330, 2042514, 7718154, 3270152, 7124875 ####[facility] [address] [place] [address] Creatinine [Mass/Vol] 0.7 mg/dL Normal 0.5-1.3 [facility] Comment on above: Performed By: #### 1 1454983, 01021147, 1057576, 7640319, 6462189, 2734391, 0283518 ####[facility] [address] [place] [address] Glucose [Mass/Vol] 83 mg/dL Normal 55-199 [facility] Comment on above: Performed By: #### 1 5740287, 05110325, 9913940, 5212850, 2521716, 0710851, 2819770 ####[facility] [address] [place] [address] Potassium [Moles/Vol] 4.1 mmol/L Normal 3.5-5.3 [facility] Comment on above: Performed By: #### 1 4766974, 57222648, 0991771, 5433392, 0676591, 0224864, 5192736 ####[facility] [address] [place] [address] Sodium [Moles/Vol] 138 mmol/L Normal 135-145 [facility] Comment on above: Performed By: #### 1 3290424, 94005335, 5906606, 3818993, 4339012, 4924144, 8749782 ####[facility] [address] [place] [address] Urea nitrogen [Mass/Vol] 15 mg/dL Normal 5-21 [facility] Comment on above: Performed By: #### 1 5055441, 67012182, 4353084, 2071364, 6683817, 5584713, 8901077 ####[address] [address] CBC w/ Auto Diffon 4 Basophil Absolute 0.0 E9/L Normal 0.0-0.2 [facility] Comment on above: Performed By: #### 1 0798184, 45829518, 7484507, 8512102, 3009236, 2637153, 3866289 ####[address] [address] Basophils/100 WBC (Bld) 0.6 % Normal 0.0-2.0 [facility] Comment on above: Performed By: #### 1 1621477, 34863672, 3445408, 6294421, 9946057, 9235394, 6207054 ####[address] [place] [address] Eos Absolute 0.2 E9/L Normal 0.0-0.5 [facility] Comment on above: Performed By: #### 1 5015974, 81645740, 5320619, 9881292, 6257158, 8180298, 1380305 ####[address] [address] Eosinophils/100 WBC (Bld) 2.5 % Normal 0.0-8.0 [facility] Comment on above: Performed By: #### 1 0254179, 39797979, 2808314, 1014184, 6787560, 6564250, 1629245 ####[address] [place] [address] Erythrocyte distribution width (RBC) [Ratio] 13.3 % Normal 10.9-14.2 [facility] Comment on above: Performed By: #### 1 0835745, 14407311, 1323658, 2260019, 5494859, 7679220, 6179680 ####[address] [place] [address] Hematocrit (Bld) [Volume fraction] 43.0 % Normal 34.0-46.0 [facility] Comment on above: Performed By: #### 1 4019060, 38583659, 0035743, 5642684, 3035921, 2602297, 9901747 ####[address]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 Normal 40.0-80.0 [facility] Comment on above: Performed By: #### 5 7021-8 #### SHWETA ROCHA ([id number]) [facility] ([facility]) [address] [place] [address] Nucleated RBC/100 WBC (Bld) [Ratio] 0.0 /100 WBCs Normal 0.0-0.0 [facility] Comment on above: Performed By: #### 5 7021-8 #### SHWETA ROCHA (47107) [facility] ([facility]) [address] [place] [address] Platelets (Bld) [#/Vol] 403 x10*3/uL Normal 150-450 [facility] Comment on above: Performed By: #### 5 7021-8 #### SHWETA ROCHA (22277) [facility] ([facility]) [address] [place] [address] RBC (Bld) [#/Vol] 4.96 x10*6/uL Normal 4.00-5.20 [facility] Comment on above: Performed By: #### 5 7021-8 #### SHWETA ROCHA (64573) [facility] ([facility]) [address] [place] [address] WBC (Bld) [#/Vol] 6.2 x10*3/uL Normal 4.4-11.3 [facility] Comment on above: Performed By: #### 5 7021-8 #### SHWETA ROCHA (23777) [facility] ([facility]) [address] [place] [address] Ceruloplasminon 04-01-2023 Ceruloplasmin [Mass/Vol] 30.7 mg/dL Normal 20.0-60.0 [facility] Comment on above: Performed By: #### 2 064-4 #### JOLENE Cantu (45038) [facility] ([facility]) [id number] [place] [address] Coagulation tissue factor in ducedon 04-01-2023 PT Coag (PPP) [Time] 10.1 s Normal 9.8-12.8 [facility] Comment on above: Performed By: #### 5 902-2 #### JOLENE Cantu (71007) [facility] ([facility]) [address] [place] [address] Comprehensive metabolic 2000 panelon 04-01-2023 Albumin BCP dye [Mass/Vol] 4.3 g/dL Normal 3.4-5.0 [facility] Comment on above: Performed By: #### 2 4323-8 #### SHWETA ROCHA ([id number]) [facility] ([facility]) [address] [place] [address] ALP [Catalytic activity/Vol] 97 U/L Normal 33-110 [facility] Comment on above: Performed By: #### 2 4323-8 #### SHWETA ROCHA (88219) [facility] ([facility]) [address] [place] [address] ALT With P-5'-P [Catalytic activity/Vol] 144 U/L High 7-45 [facility] Comment on above: Result Comment: Katia ents treated with Sulfasalazine may generate falsely decreased results for ALT. Performed By: #### 2 4323-8 #### SHWETA ROCHA ([id number]) [facility] ([facility]) [address] [place] [address] Anion gap [Moles/Vol] 14 mmol/L Normal 10-20 [facility] Comment on above: Performed By: #### 2 4323-8 #### SHWETA ROCHA (02397) [facility] ([facility]) [address] [place] [address] AST With P-5'-P [Catalytic activity/Vol] 120 U/L High 9-39 [facility] Comment on above: Performed By: #### 2 4323-8 #### SHWETA ROCHA (01559) [facility] ([facility]) [address] [place] [address] Bilirubin [Mass/Vol] 0.6 mg/dL Normal 0.0-1.2 [facility] Comment on above: Performed By: #### 2 4323-8 #### SHWETA ROCHA (49752) [facility] ([facility]) [address] [place] [address] Calcium [Mass/Vol] 9.4 mg/dL Normal 8.6-10.3 [facility] Comment on above: Performed By: #### 2 4323-8 #### CARLOSRENE ROCHA (81166) [facility] ([facility]) [address] [place] [address] Chloride [Moles/Vol] 101 mmol/L Normal 98-107 [facility] Comment on above: Performed By: #### 2 4323-8 #### [address]ELIGANESH BARNET[address] (83387) [facility] ([facility]) [address] [place] [address] CO2 [Moles/Vol] 29 mmol/L Normal 21-32 [facility] Comment on above: Performed By: #### 2 4323-8 #### BEATRIZIBRENE ROCHA (46891) [facility] ([facility]) [address] [place] [address] Creatinine [Mass/Vol] 0.74 mg/dL Normal 0.50-1.05 [facility] Comment on above: Performed By: #### 2 4323-8 #### BEATRIZIBRENE ROCHA (62556) [facility] ([facility]) [address] [place] [address] 107[address] GFR/1.73 sq M.predicted MDRD (S/P/Bld) [Vol rate/Area] mL/min/{1.73_m2} Normal >60 [facility] Comment on above: Result Comment: Calc ulations of estimated GFR are performed using the 2020 CKD-EPI Study Refit equation without the race variable for the IDMS-Traceable creatinine methods. https://jasn.asnjournals.org/content/early/ASN.2020 211513 Performed By: #### 2 4323-8 #### BEATRIZIBRENE BARNETT [address] KEY ([id number]) [facility] ([facility]) [address] [place] [address] Glucose [Mass/Vol] 81 mg/dL Normal 74-99 [facility] Comment on above: Performed By: #### 2 4323-8 #### BEATRIZIBRENE ROCHA (79624) [facility] ([facility]) [address] [place] [address] Potassium [Moles/Vol] 5.5 mmol/L High 3.5-5.3 [facility] Comment on above: Performed By: #### 2 4323-8 #### SHWETA ROCHA (35014) [facility] ([facility]) [address] [place] [address] Protein [Mass/Vol] 7.6 g/dL Normal 6.4-8.2 [facility] Comment on above: Performed By: #### 2 4323-8 #### SHWETA ROCHA (93952) [facility] ([facility]) [address] [place] [address] 36262 Sodium [Moles/Vol] 138 mmol/L Normal 136-145 [facility] Comment on above: Performed By: #### 2 4323-8 #### SHWETA ROCHA (13591) [facility] ([facility]) [address] [place] [address]39 Urea nitrogen [Mass/Vol] 11 mg/dL Normal 6-23 [facility] Comment on above: Performed By: #### 2 4323-8 #### SHWETA BARNETT [address] ([id number]) [facility] ([facility]) [address] [place] [address] 02466 Ferritinon 04-01-2023 Ferritin [Mass/Vol] 77 ng/mL Normal 8-150 [facility] Comment on above: Performed By: #### 5 0023-1 #### JOLENE Cantu (26509) [facility] ([facility]) [address] [place] [address] HCV RNA panel LINDSEY+probeon HCV PCR QUANT [id number] IU/mL High Not detected [facility] Comment on above: Order Comment: Repor table Range: 15-100,000,000 IU/mL. The javier HCV is an in vitro nucleic acid amplification test for both the detection and quantitation of hepatitis C virus (HCV) RNA, in human EDTA plasma or serum, of HCV antibody positive or HCV-infected individuals on the javier 6800/8800 Systems. Dual probes are used to detect and quantify, but not discriminate HCV genotypes 1-6. Though rare, mutations within the highly conserved regions of a viral genome covered by javier HCV may affect primer and/or probe binding resulting in the under-quantitation of virus or failure to detect the presence of virus. The analytical quantification range of this assay has been determined to be 15 to 100,000,000 IU/ml in plasma. If the assay DETECTED the presence of the virus but was not able to accurately quantify the number of copies, the test result will be reported as <15 Detected or >100,000,000 Detected . The javier??? HCV is intended for use as an aid in the diagnosis of HCV infection in the following populations: individuals with antibody evidence of HCV with evidence of liver disease, individuals suspected to be actively infected with HCV antibody evidence, and individuals at risk for HCV infection with antibodies to HCV. Detection of HCV RNA indicates that the virus is replicating and therefore is evidence of active infection. The javier HCV is intended for use as an aid in the management of HCV infected patients undergoing anti-viral therapy. The assay can be used to measure HCV RNA levels at baseline, during treatment, at the end of treatment, and at the end of follow up of treatment to determine sustained or non-sustained viral response. The results must be interpreted within the context of all relevant clinical and laboratory findings. This test is approved by the [place] Food and Drug Administration, and its performance characteristics verified by the Molecular Diagnostic Laboratory, Department of Pathology, [facility]. Performed By: #### 5 0023-1 #### JOLENE Cantu (32651) [facility] ([facility]) [address] [place] [address] HCV PCR W/GENOTYPE REFLEX ORDERED Aliquot sent to Genetics Lab for genotyping Normal [facility] Comment on above: Order Comment: Repor table Range: 15-100,000,000 IU/mL. The javier HCV is an in vitro nucleic acid amplification test for both the detection and quantitation of hepatitis C virus (HCV) RNA, in human EDTA plasma or serum, of HCV antibody positive or HCV-infected individuals on the javier 6800/8800 Systems. Dual probes are used to detect and quantify, but not discriminate HCV genotypes 1-6. Though rare, mutations within the highly conserved regions of a viral genome covered by javier HCV may affect primer and/or probe binding resulting in the under-quantitation of virus or failure to detect the presence of virus. The analytical quantification range of this assay has been determined to be 15 to 100,000,000 IU/ml in plasma. If the assay DETECTED the presence of the virus but was not able to accurately quantify the number of copies, the test result will be reported as <15 Detected or >100,000,000 Detected . The javier??? HCV is intended for use as an aid in the diagnosis of HCV infection in the following populations: individuals with antibody evidence of HCV with evidence of liver disease, individuals suspected to be actively infected with HCV antibody evidence, and individuals at risk for HCV infection with antibodies to HCV. Detection of HCV RNA indicates that the virus is replicating and therefore is evidence of active infection. The javier HCV is intended for use as an aid in the management of HCV infected patients undergoing anti-viral therapy. The assay can be used to measure HCV RNA levels at baseline, during treatment, at the end of treatment, and at the end of follow up of treatment to determine sustained or non-sustained viral response. The results must be interpreted within the context of all relevant clinical and laboratory findings. This test is approved by the [place] Food and Drug Administration, and its performance characteristics verified by the Molecular Diagnostic Laboratory, Department of Pathology, [facility]. Performed By: #### 5 0023-1 #### JOLENE Cantu (14572) [facility] ([facility]) [address] [place] [address] HCV RNA RESULT Detected Abnormal Not detected [facility] Comment on above: Order Comment: Repor table Range: 15-100,000,000 IU/mL. The javier HCV is an in vitro nucleic acid amplification test for both the detection and quantitation of hepatitis C virus (HCV) RNA, in human EDTA plasma or serum, of HCV antibody positive or HCV-infected individuals on the javier World Reviewer0/8800 Systems. Dual probes are used to detect and quantify, but not discriminate HCV genotypes 1-6. Though rare, mutations within the highly conserved regions of a viral genome covered by javier HCV may affect primer and/or probe binding resulting in the under-quantitation of virus or failure to detect the presence of virus. The analytical quantification range of this assay has been determined to be 15 to 100,000,000 IU/ml in plasma. If the assay DETECTED the presence of the virus but was not able to accurately quantify the number of copies, the test result will be reported as <15 Detected or >100,000,000 Detected . The javier??? HCV is intended for use as an aid in the diagnosis of HCV infection in the following populations: individuals with antibody evidence of HCV with evidence of liver disease, individuals suspected to be actively infected with HCV antibody evidence, and individuals at risk for HCV infection with antibodies to HCV. Detection of HCV RNA indicates that the virus is replicating and therefore is evidence of active infection. The javier HCV is intended for use as an aid in the management of HCV infected patients undergoing anti-viral therapy. The assay can be used to measure HCV RNA levels at baseline, during treatment, at the end of treatment, and at the end of follow up of treatment to determine sustained or non-sustained viral response. The results must be interpreted within the context of all relevant clinical and laboratory findings. This test is approved by the [place] Food and Drug Administration, and its performance characteristics verified by the Molecular Diagnostic Laboratory, Department of Pathology, [facility]. Performed By: #### 5 0023-1 #### JOLENE Cantu ([id number]) [facility] ([facility]) [address] [place] [address] HCV RNA, PCR LOG 7.24 Log IU/mL Normal [facility] Comment on above: Order Comment: Repor table Range: 15-100,000,000 IU/mL. The javier HCV is an in vitro nucleic acid amplification test for both the detection and quantitation of hepatitis C virus (HCV) RNA, in human EDTA plasma or serum, of HCV antibody positive or HCV-infected individuals on the javier World Reviewer0/8800 Systems. Dual probes are used to detect and quantify, but not discriminate HCV genotypes 1-6. Though rare, mutations within the highly conserved regions of a viral genome covered by javier HCV may affect primer and/or probe binding resulting in the under-quantitation of virus or failure to detect the presence of virus. The analytical quantification range of this assay has been determined to be 15 to 100,000,000 IU/ml in plasma. If the assay DETECTED the presence of the virus but was not able to accurately quantify the number of copies, the test result will be reported as <15 Detected or >100,000,000 Detected . The javier??? HCV is intended for use as an aid in the diagnosis of HCV infection in the following populations: individuals with antibody evidence of HCV with evidence of liver disease, individuals suspected to be actively infected with HCV antibody evidence, and individuals at risk for HCV infection with antibodies to HCV. Detection of HCV RNA indicates that the virus is replicating and therefore is evidence of active infection. The javier HCV is intended for use as an aid in the management of HCV infected patients undergoing anti-viral therapy. The assay can be used to measure HCV RNA levels at baseline, during treatment, at the end of treatment, and at the end of follow up of treatment to determine sustained or non-sustained viral response. The results must be interpreted within the context of all relevant clinical and laboratory findings. This test is approved by the [place] Food and Drug Administration, and its performance characteristics verified by the Molecular Diagnostic Laboratory, Department of Pathology, [facility]. Performed By: #### 5 0023-1 #### JOLENE Cantu ([id number]) [facility] ([facility]) [address] [place] [address] HCV genotype Sequencing Nomo n 04-01-2023 ELECTRONICALLY SIGNED BY Stephen Nguyen MD PhD [facility] Comment on above: Performed By: #### 5 902-2 #### JOLENE Cantu ([id number]) [facility] ([facility]) [address] [place], [place] [address] HEPATITIS C INTERPRETATION INTERPRETATION [facility] Comment on above: Performed By: #### 5 902-2 #### JOLENE Cantu ([id number]) [facility] ([facility]) [address] [place] [address] HIV 1+2 Ab+HIV1 p24 Agon HIV 1+2 Ab+HIV1 p24 Ag IA Ql Non-Reactive Normal Nonreactive [facility] Comment on above: Order Comment: HIV A g/Ab screen is performed using the Siemens AtellGigsJam HIV Ag/Ab Combo assay which detects the presence of HIV p24 antigen as well as antibodies to HIV-1 (Group M and O) and HIV-2. No laboratory evidence of HIV infection. If acute HIV infection is suspected, consider testing for HIV RNA by PCR (viral load). Performed By: #### 5 6888-1 #### JOLENE Cantu ([id number]) [facility] ([facility]) [address] [place] [address] Hepatitis A virus Abon 04-01 HAV Ab IA Ql (S) Reactive Abnormal Nonreactive [facility] Comment on above: Order Comment: Repor table Range: 15-100,000,000 IU/mL. The javier HCV is an in vitro nucleic acid amplification test for both the detection and quantitation of hepatitis C virus (HCV) RNA, in human EDTA plasma or serum, of HCV antibody positive or HCV-infected individuals on the javier World Reviewer0/8800 Systems. Dual probes are used to detect and quantify, but not discriminate HCV genotypes 1-6. Though rare, mutations within the highly conserved regions of a viral genome covered by javier HCV may affect primer and/or probe binding resulting in the under-quantitation of virus or failure to detect the presence of virus. The analytical quantification range of this assay has been determined to be 15 to 100,000,000 IU/ml in plasma. If the assay DETECTED the presence of the virus but was not able to accurately quantify the number of copies, the test result will be reported as <15 Detected or >100,000,000 Detected . The javier??? HCV is intended for use as an aid in the diagnosis of HCV infection in the following populations: individuals with antibody evidence of HCV with evidence of liver disease, individuals suspected to be actively infected with HCV antibody evidence, and individuals at risk for HCV infection with antibodies to HCV. Detection of HCV RNA indicates that the virus is replicating and therefore is evidence of active infection. The javier HCV is intended for use as an aid in the management of HCV infected patients undergoing anti-viral therapy. The assay can be used to measure HCV RNA levels at baseline, during treatment, at the end of treatment, and at the end of follow up of treatment to determine sustained or non-sustained viral response. The results must be interpreted within the context of all relevant clinical and laboratory findings. This test is approved by the US Food and Drug Administration, and its performance characteristics verified by the Molecular Diagnostic Laboratory, Department of Pathology, [facility]. Performed By: #### 5 0023-1 #### JOLENE Cantu ([id number]) [facility] ([facility]) [address] [place] [address] Hepatitis B virus core Abon 04-01-2023 HBV core Ab Ql (S) Non-Reactive Normal Nonreactive [facility] Comment on above: Order Comment: Repor table Range: 15-100,000,000 IU/mL. The javier HCV is an in vitro nucleic acid amplification test for both the detection and quantitation of hepatitis C virus (HCV) RNA, in human EDTA plasma or serum, of HCV antibody positive or HCV-infected individuals on the javier World Reviewer0/8800 Systems. Dual probes are used to detect and quantify, but not discriminate HCV genotypes 1-6. Though rare, mutations within the highly conserved regions of a viral genome covered by javier HCV may affect primer and/or probe binding resulting in the under-quantitation of virus or failure to detect the presence of virus. The analytical quantification range of this assay has been determined to be 15 to 100,000,000 IU/ml in plasma. If the assay DETECTED the presence of the virus but was not able to accurately quantify the number of copies, the test result will be reported as <15 Detected or >100,000,000 Detected . The javier??? HCV is intended for use as an aid in the diagnosis of HCV infection in the following populations: individuals with antibody evidence of HCV with evidence of liver disease, individuals suspected to be actively infected with HCV antibody evidence, and individuals at risk for HCV infection with antibodies to HCV. Detection of HCV RNA indicates that the virus is replicating and therefore is evidence of active infection. The javier HCV is intended for use as an aid in the management of HCV infected patients undergoing anti-viral therapy. The assay can be used to measure HCV RNA levels at baseline, during treatment, at the end of treatment, and at the end of follow up of treatment to determine sustained or non-sustained viral response. The results must be interpreted within the context of all relevant clinical and laboratory findings. This test is approved by the US Food and Drug Administration, and its performance characteristics verified by the Molecular Diagnostic Laboratory, Department of Pathology, [facility]. Performed By: #### 5 0023-1 #### JOLENE Cantu ([id number]) [facility] ([facility]) [address] [place], [place] [address] Hepatitis B virus surface Ab on 04-01-2023 HBV surface Ab Qn (S) <3.1 Normal <10.0 [facility] Comment on above: Result Comment: Inte rpretive Criteria: <10 mIU/mL Nonreactive >=10 mIU/mL Reactive Biotin interference may cause falsely decreased results. Patients taking a Biotin dose of up to 5 mg/day should refrain from taking Biotin for 24 hours before sample collection. Providers may contact their local laboratory for further information. Performed By: #### 5 0023-1 #### JOLENE Cantu ([id number]) [facility] ([facility]) [address] [place] [address] Hepatitis B virus surface Ag on 04-01-2023 HBV surface Ag IA Ql Non-Reactive Normal Nonreactive [facility] Comment on above: Result Comment: Biot in interference may cause falsely decreased results. Patients taking a Biotin dose of up to 5 mg/day should refrain from taking Biotin for 24 hours before sample collection. Providers may contact their local laboratory for further information. Performed By: #### 5 0023-1 #### JOLENE Cantu ([id number]) [facility] ([facility]) [address] [place], [place] [address] Hepatitis C virus genotypeon 04-01-2023 HCV genotype Sequencing Nom Genotype 1a Normal Genotypes: 1, 1a, 1b, 1c, 1d, 1e, 1g, 1h, 1i, 1j, 1k, 1l, 1m, 1n, 2, 2a, 2b, 3, 3a, 3b, 3d, 3e, 3g, 3h, 3i, 3k, 4, 4a, 4b, 5, 5a, 6, 6a, 6b [facility] Comment on above: Performed By: #### 5 902-2 #### JOLENE Cantu ([id number]) [facility] ([facility]) [address] [place] [address] Iron and Iron binding capaci ty panelon 04-01-2023 Iron [Mass/Vol] 119 ug/dL Normal 35-150 [facility] Comment on above: Performed By: #### 5 0190-8 #### SHWETA ROCHA ([id number]) [facility] ([facility]) [address] [place] [address] Iron binding capacity [Mass/Vol] 465 ug/dL High 240-445 [facility] Comment on above: Performed By: #### 5 0190-8 #### SHWETA ROCHA ([id number]) [facility] ([facility]) [address] [place] [address] Iron binding capacity.unsaturated [Mass/Vol] 346 ug/dL Normal 110-370 [facility] Comment on above: Performed By: #### 5 0190-8 #### SHWETA ROCHA ([id number]) [facility] ([facility]) [address] [place] [address] Iron saturation [Mass fraction] 26 % Normal 25-45 [facility] Comment on above: Performed By: #### 5 0190-8 #### SHWETA ROCHA ([id number]) [facility] ([facility]) [address] [place] [address] Mitochondria Abon 04-01-2023 Mitochondria Ab IF Ql (S) Negative Normal Negative [facility] Comment on above: Performed By: #### 5 0023-1 #### JOLENE Cantu ([id number]) [facility] ([facility]) [address] [place] [address] Nuclear Abon 04-01-2023 Nuclear Ab Hep2 substrate Ql (S) Negative Normal Negative [facility] Comment on above: Result Comment: The Antinuclear Antibody (BEATRIZ) test was performed using indirect immunofluorescence assay with HEp-2 cells slide. Performed By: #### 5 0023-1 #### JOLENE Cantu ([id number]) [facility] ([facility]) [address] [place] [address] PHOSPHATIDYLETHANOL (PETH), WHOLE BLOOD, QUANTITATIVEon 04-01-2023 Laboratory report See Note Normal [facility] Comment on above: Result Comment: Auth orized individuals can access the [employer] Enhanced Report using the following link: [email or web address] Performed By: #### 5 902-2 #### JOLENE Cantu ([id number]) [facility] ([facility]) [address] [place] [address] PETH INTERPRETATION See Note Normal [facility] Comment on above: Result Comment: Phos phatidylethanol (PEth) is a group of phospholipids formed in the presence of ethanol, phospholipase D and phosphatidylcholine. PEth is known to be a direct alcohol biomarker. The predominant PEth homologues are PEth 16:0/18:1 (POPEth) and PEth 16:0/18:2 (PLPEth), which account for 37-46% and 26-28% of the total PEth homologues, respectively. PEth is incorporated into the phospholipid membrane of red blood cells and has a general half-life of 4-10 days and a window of detection of 2-4 weeks. However, the window of detection is longer in individuals who chronically or excessively consume alcohol. The limit of quantification is 10 ng/mL. Serial monitoring of PEth may be helpful in monitoring alcohol abstinence over time. PEth results should be interpreted in the context of the patient's clinical and behavioral history. Patients with advanced liver disease may have falsely elevated PEth concentrations (Shweta MATTHEW et al 2018, Alcoholism Clinical & Experimental Research). This test was developed and its performance characteristics determined by [employer]. It has not been cleared or approved by the U.S. Food and Drug Administration. This test was performed in a CLIA-certified laboratory and is intended for clinical purposes. Performed By: [employer] [address] [place] [address] Helper Coordinator: Miki Neal MD, PhD CLIA Number: [id number] Performed By: #### 5 902-2 #### JOLENE Cantu ([id number]) [facility] ([facility]) [address] [place], [place] [address] Phosphatidylethanol 16:0-18:1 <10 [facility] Comment on above: Result Comment: PEth 16:0/18:1 (POPEth) Less than 10 ng/mL............Not detected Less than 20 ng/mL............Abstinence or light alcohol consumption 20 - 200 ng/mL................Moderate alcohol consumption Greater than 200 ng/mL........Heavy alcohol consumption or chronic alcohol use (Reference: Enrike Mirza and Noé Dan 2018 J. Forensic Sci) Performed By: #### 5 902-2 #### JOLENE Cantu ([id number]) [facility] ([facility]) [address] [place] [address] Phosphatidylethanol 16:0-18:2 <10 Normal [facility] Comment on above: Result Comment: Refe rence ranges are not well established. Performed By: #### 5 902-2 #### JOLENE Cantu ([id number]) [facility] ([facility]) [address] [place] [address] 10123 PT Coag (PPP) [Time]on 04-01 INR Coag (PPP) [Relative time] 0.9 Normal 0.9-1.1 [facility] Comment on above: Performed By: #### 5 902-2 #### JOLENE Cantu ([id number]) [facility] ([facility]) [address] [place] [address] Smooth muscle Abon 4 Smooth muscle Ab IF Ql (S) Negative Normal Negative [facility] Comment on above: Performed By: #### 5 0023-1 #### JOLENE Cantu ([id number]) [facility] ([facility]) [address] [place] [address]76 Consent for Treatmenton Consent for Treatment [id number]#1.00TIF F Normal [facility] Discharge Instructionson Discharge Instructions [id number]#1.00TI FF Normal [facility] ED Clinical Summaryon 2023 ED Clinical Summary Normal Osbaldo lopez [facility] ED Note-Physicianon 03-26-19 ED Note-Physician Normal [facility] Comment on above: Result Comment: Elec tronically Signed By: Jorge Mcintosh DO\.br\Date and Time Signed: 03/26/23 12:29 EST ED Patient Education Noteon 03-26-2023 ED Patient Education Note Normal [facility] ED Patient Summaryon 024 ED Patient Summary Normal [facility] Consent for Treatmenton 02-24 Consent for Treatment [id number] F [facility] Discharge Instructionson Discharge Instructions [id number]#1.00TI FF Normal [facility] ED Clinical Summaryon 2022 ED Clinical Summary Normal [facility] ED Note-Physicianon 03-23-20 ED Note-Physician Normal [facility] Comment on above: Result Comment: Elec tronically Signed By: Landon Tidwell PA-C.br\Date and Time Signed: 03/23/23 13:46 EST\.br\Electronically Co-Signed By: Nikhil Tubbs DO.br\Date and Time Co-Signed: 03/23/23 15:51 EST ED Patient Education Noteon 03-23-2023 ED Patient Education Note Normal [facility] ED Patient Summaryon 023 ED Patient Summary [facility] Consent for Treatmenton 02-23 Consent for Treatment [id number] F [facility] Discharge Instructionson Discharge Instructions [id number]#1.00TI FF Normal [facility] ED Clinical Summaryon 2022 ED Clinical Summary Normal [facility] ED Note-Physicianon 03-20-20 ED Note-Physician [facility] Comment on above: Result Comment: Elec tronically Signed By: Landon Tidwell PA-C.br\Date and Time Signed: 03/20/23 13:40 EST\.br\Electronically Co-Signed By: Elisa Sánchez DO\.br\Date and Time Co-Signed: 03/20/23 15:13 EST ED Patient Education Noteon 03-20-2023 ED Patient Education Note Normal [facility] ED Patient Summaryon 023 ED Patient Summary Normal [facility] Auto DiffOrdered By: SYSTEM SYSTEM on 03-11-2023 Basophils/100 WBC (Bld) 0.3 % Normal 0.0-2.0 F [facility] Comment on above: Order Comment: Order Added by Discern Expert. Performed By: #### 2 121511, 4013116, 5171290, 8214418, 83828005, 0065147 ####[address] [address] Basophils/Leukocytes Auto (Bld) [Pure # fraction] 0.0 E9/L Normal 0.0-0.2 [facility] Comment on above: Order Comment: Order Added by Discern Expert. Performed By: #### 2 111158, 2706561, 1042434, 1929578, 71758921, 5386038 ####[address] [address] Eosinophils/100 WBC (Bld) 5.6 % Normal 0.0-8.0 [facility] Comment on above: Order Comment: Order Added by Discern Expert. Performed By: #### 2 196268, 2843144, 9023819, 6614461, 44782541, 3330419 ####[address] [place] [address] Eosinophils/Leukocytes Auto (Bld) [Pure # fraction] 0.3 E9/L Normal 0.0-0.5 [facility] Comment on above: Order Comment: Order Added by Discern Expert. Performed By: #### 2 473292, 0005274, 0477424, 2970996, 52119631, 6289954 ####[address] [address] Lymphocytes/100 WBC (Bld) 28.4 % Normal 14.0-50.0 [facility] Comment on above: Order Comment: Order Added by Discern Expert. Performed By: #### 2 376606, 0372627, 7738085, 6164918, 82601825, 0730880 ####[place] [address] [address] Lymphocytes/Leukocytes Auto (Bld) [Pure # fraction] 1.8 E9/L Normal 1.0-4.0 [facility] Comment on above: Order Comment: Order Added by Discern Expert. Performed By: #### 2 338954, 2504114, 8012320, 1143737, 71571413, 7160643 ####[place] [address] Monocytes/100 WBC (Bld) 9.4 % Normal 4.0-14.0 F [facility] Comment on above: Order Comment: Order Added by Discern Expert. Performed By: #### 2 041895, 8875916, 5053900, 5968165, 19218422, 8287313 ####[place] [address] [address] Monocytes/Leukocytes Auto (Bld) [Pure # fraction] 0.6 E9/L Normal 0.2-1.0 [facility] Comment on above: Order Comment: Order Added by Discern Expert. Performed By: #### 2 428362, 8248150, 3250831, 9323279, 37510247, 2989084 ####[place] [address] [address] Neutrophils/100 WBC (Bld) 56.3 % Normal 36.0-75.0 [facility] Comment on above: Order Comment: Order Added by Discern Expert. Performed By: #### 2 729616, 3184164, 6867490, 2836399, 85418546, 2855782 ####[address] [address] Neutrophils/Leukocytes Auto (Bld) [Pure # fraction] 3.5 E9/L Normal 2.0-7.5 [facility] Comment on above: Order Comment: Order Added by Discern Expert. Performed By: #### 2 042623, 3261033, 7244871, 6693339, 88303649, 0840181 ####[address] [address] BMPOrdered By: SYSTEM SYSTEM on 03-11-2023 Anion gap [Moles/Vol] 9 mmol/L Normal 6-16 Rem isol Chem Comment on above: Performed By: #### 2 090887, 7009502, 0423948, 6443541, 35416559, 5436175 ####[address] [address] Calcium [Mass/Vol] 8.5 mg/dL Low 8.9-11.1 [facility] Comment on above: Performed By: #### 2 187382, 4383449, 4474419, 8052744, 12207277, 3658498 ####[address] [address] Chloride [Moles/Vol] 105 mmol/L Normal 101-111 [facility] Comment on above: Performed By: #### 2 887891, 4916572, 6159001, 1306398, 77436782, 1788160 ####[address] [address] CO2 [Moles/Vol] 27 mmol/L Normal 21-31 [facility] Comment on above: Performed By: #### 2 344320, 6449571, 1176130, 3301076, 56884593, 6459161 ####[address] [place] [address] Creatinine [Mass/Vol] 0.7 mg/dL Normal 0.5-1.3 Rem isol Chem Comment on above: Performed By: #### 2 910182, 2687429, 5029616, 0124241, 48797575, 7989382 ####[address] [address] Glucose [Mass/Vol] 104 mg/dL Normal 55-199 [facility] Comment on above: Performed By: #### 2 518244, 7265788, 4995291, 0999114, 98845895, 8660084 ####[address] [place] [address] Potassium [Moles/Vol] 4.0 mmol/L Normal 3.5-5.3 Rem isol Chem Comment on above: Performed By: #### 2 659956, 6913099, 0029788, 7703533, 53436966, 5504433 ####[address] [address] Sodium [Moles/Vol] 137 mmol/L Normal 135-145 [facility] Comment on above: Performed By: #### 2 231717, 3647559, 8556490, 5452205, 44073464, 0031085 ####[address] [address] Urea nitrogen [Mass/Vol] 9 mg/dL Normal 5-21 [facility] Comment on above: Performed By: #### 2 242363, 7374607, 4442751, 5854300, 10836290, 3383021 ####[address] [address] BMPon 03-11-2023 BUN/Creat Ratio 13 No Units Normal 10-20 [facility] Comment on above: Performed By: #### 2 653155, 0767566, 3917827, 6961541, 80662900, 0177143 ####[address] [address] CBC w/ Auto DiffOrdered By: Radha Vivar on 03-11-2023 Erythrocyte distribution width (RBC) [Ratio] 13.1 % Normal 10.9-14.2 [facility] Comment on above: Performed By: #### 2 535008, 8722159, 3910309, 1814909, 68767756, 2218987 ####[address] [address] Hematocrit (Bld) [Volume fraction] 46.1 % High 34.0-46.0 [facility] Comment on above: Performed By: #### 2 515888, 8869159, 1567687, 0703557, 73736395, 6245826 ####[address] [address] Hemoglobin (Bld) [Mass/Vol] 15.4 g/dL Normal 12.0-16.0 [facility] Comment on above: Performed By: #### 2 380041, 1730440, 5281036, 2340614, 17226906, 2731699 ####[address] [address] MCH (RBC) [Entitic mass] 32.0 pg Normal 27.0-34.0 [facility] Comment on above: Performed By: #### 2 288362, 2314264, 5956745, 6263817, 41666818, 5090051 ####[place] [address] [address] MCHC (RBC) [Mass/Vol] 33.5 g/dL Normal 31.4-36.0 [facility] Comment on above: Performed By: #### 2 642308, 3424475, 9326979, 5075427, 25386796, 9864707 ####[address] [address] MCV (RBC) [Entitic vol] 95.7 fL Normal 80.0-100.0 F [facility] Comment on above: Performed By: #### 2 198577, 0578782, 9243022, 6480242, 59398126, 7176022 ####[address] [address] Platelet mean volume (Bld) [Entitic vol] 9.0 fL Normal 6.4-10.8 [facility] Comment on above: Performed By: #### 2 188624, 5877575, 1603629, 3279443, 01139645, 0673979 ####[place] [address] [place] [address] Platelets (Bld) [#/Vol] 248.0 E9/L Normal 150.0-500.0 [facility] Comment on above: Performed By: #### 2 125244, 4730551, 0041793, 1343608, 46649405, 8166702 ####[facility] [address] [place] [address] RBC (Bld) [#/Vol] 4.8 E12/L Normal 4.3-5.9 [facility] Comment on above: Performed By: #### 2 770233, 1351989, 1738185, 9726162, 56831801, 0525007 ####[facility] [address] [place] [address] WBC corrected for nucl RBC Auto (Bld) [#/Vol] 6.2 E9/L Normal 4.0-11.0 [facility] Comment on above: Performed By: #### 2 843231, 5071682, 9935130, 6938780, 73156780, 8652062 ####[facility] [address] [place] [address] CHEMISTRYOrdered By: SYSTEM SYSTEM on 03-11-2023 Alk Phos 68 [iU]/d Normal 21 - 98 Int._Unit/L Remisol Chem ALT 66 [iU]/d High 6 - 46 Int._Unit/L Remisol Chem AST 51 [iU]/d High 5 - 43 Int._Unit/L Remisol Chem eGFR mL/min/1.73 m2 Normal >=59mL/min/1 .73 m2 Remisol Chem Urea nitrogen/Creatinine [Mass ratio] 13 mg/mg Normal 10 - 20 Remisol Chem Consent for Treatmenton 02-22 Consent for Treatment [id number] F Normal [facility] Discharge Instructionson Discharge Instructions [id number] FF Normal [facility] ED Clinical Summaryon 2022 ED Clinical Summary Normal Osbaldo lopez [facility] ED Note-Physicianon 03-11-20 ED Note-Physician Normal [facility] Comment on above: Result Comment: Elec tronically Signed By: Jorge Mcintosh DO\.rufino\Date and Time Signed: 03/11/23 10:39 EST ED Patient Education Noteon 03-11-2023 ED Patient Education Note Normal [facility] ED Patient Summaryon 023 ED Patient Summary Normal [facility] Hep Func PanelOrdered By: LUMI Mask SYSTEM on 03-11-2023 Albumin [Mass/Vol] 4.1 g/dL Normal 3.3-5.0 Remiso l Chem Comment on above: Performed By: #### 2 521126, 9519563, 4057744, 9683508, 80349731, 8828652 ####[facility] [address] [place] [address] Albumin/Globulin [Mass ratio] 1.4 {ratio} Normal 1.1-2.2 Remisol Chem Comment on above: Performed By: #### 2 848200, 5367564, 8737021, 3789457, [id number], 9530129 ####[facility] [address] [place] [address] Bili Direct 0.2 mg/dL Normal 0.1-0.4 Remisol Chem Comment on above: Performed By: #### 2 939024, 6290953, 2114206, 3388421, 79995867, 7562056 ####[facility] [address] [place] [address] Bili Indirect 0.4 mg/dL Normal 0.1-0.9 Remisol Chem Comment on above: Performed By: #### 2 079054, 2283816, 7184997, 8349907, 19597197, 6705994 ####[facility] [address] [place] [address] Bili Total 0.6 mg/dL Normal 0.0-1.1 Remisol Chem Comment on above: Performed By: #### 2 346747, 4267928, 5312918, 1124663, 48402291, 8711603 ####[address] [place] [address] Globulin (S) [Mass/Vol] 3.0 g/dL Normal 1.4-4.0 R emisol Chem Comment on above: Performed By: #### 2 961297, 9166301, 7866841, 5831522, 77319587, 4278582 ####[address] [address] Protein [Mass/Vol] 7.1 g/dL Normal 6.0-7.8 Remiso l Chem Comment on above: Performed By: #### 2 014207, 4807209, 7418592, 0028303, 84104137, 0119309 ####[address] [address] Hep Func Panelon 03-11-2023 Alk Phos 68 Int._Unit/L Normal 21-98 [facility] Comment on above: Performed By: #### 2 053729, 2098157, 4363875, 0325512, 74617112, 4850866 ####[address] [address] ALT 66 Int._Unit/L High 6-46 [facility] Comment on above: Performed By: #### 2 299702, 8394700, 6295554, 8316080, 14654905, 2383298 ####[address] [address] AST 51 Int._Unit/L High 5-43 [facility] Comment on above: Performed By: #### 2 231746, 2621402, 0783514, 2634195, 77900857, 5452817 ####[address] [address] Lipase LevelOrdered By: SYST EM SYSTEM on 03-11-2023 Lipase Lvl 15 unit/L Normal 13-58 Remisol Chem Comment on above: Performed By: #### 2 763725, 6524179, 9516207, 8254068, 19383549, 3550874 ####Orr [facility] [address] [place] [address] MICRO OTHER TESTSOrdered By: Chyeanne Rosas on 03-11-2023 Rapid COV Int NEG Ctl Pass (03/11/23 9:34 AM) Normal [facility] Man Sero Rapid COV Int POS Ctl Pass (03/11/23 9:34 AM) Normal [facility] Man Sero SARS-CoV+SARS-CoV-2 (COVID-19) Ag IA.rapid Ql (Resp) Not Detected 1 (03/11/23 9:34 AM) Normal Not Detected [facility] Man Sero Comment on above: Interpretive Data: Kim ned iZettle Veritor System for Rapid Detection of SARS-CoV-2 is a chromatographic digital immunoassay intended for the direct and qualitative detection of SARS-CoV-2 nucleocapsid antigens in nasal swabs from individuals who are suspected of COVID-19 by their healthcare provider within the first five days of the onset of symptoms. Negative results should be treated as presumptive, do not rule out SARS-CoV-2 infection and should not be used as the sole basis for treatment or patient management decisions, including infection control decisions. Negative results should be considered in the context of a patient s recent exposures, history and the presence of clinical signs and symptoms consistent with COVID-19, and confirmed with a molecular assay, if necessary, for patient management. For in vitro diagnostic use. In the [place], only for use under an Emergency Use Authorization. In the [place], this test has not been FDA cleared or approved; this test has been authorized by FDA under an EUA for use by authorized laboratories; use by laboratories certified under the CLIA, 42 U.S.C. 263a, that meet requirements to perform moderate, high, or waived complexity tests and at the Point of Care (POC), i.e., in patient care settings operating under a CLIA Certificate of Waiver, Certificate of Compliance, or Certificate of Accreditation. This test has been authorized only for the detection of proteins from SARS-CoV-2, not for any other viruses or pathogens; and, in the [place], this test is only authorized for the duration of the declaration that circumstances exist justifying the authorization of emergency use of in vitro diagnostics for detection and/or diagnosis of the virus that causes COVID-19 under Section 564(b)(1) of the Act, 21 U.S.C. 360bbb-3(b)(1), unless the authorization is terminated or revoked sooner. Rapid COVID Antigen ([facility])on 03-11-2023 Rapid COV Int NEG Ctl Pass Normal [facility] Comment on above: Performed By: #### 2 [id number] ####[facility] [address] [place] [address] Rapid COV Int POS Ctl Pass Normal [facility] Comment on above: Performed By: #### 2 [id number] ####[address] [place] [address] SARS-CoV+SARS-CoV-2 (COVID-19) Ag IA.rapid Ql (Resp) Not detected Normal Not Detected [facility] Comment on above: Result Comment: The Above Security System for Rapid Detection of SARS-CoV-2 is a chromatographic digital immunoassay intended for the direct and qualitative detection of SARS-CoV-2 nucleocapsid antigens in nasal swabs from individuals who are suspected of COVID-19 by their healthcare provider within the first five days of the onset of symptoms. Negative results should be treated as presumptive, do not rule out SARS-CoV-2 infection and should not be used as the sole basis for treatment or patient management decisions, including infection control decisions. Negative results should be considered in the context of a patient?s recent exposures, history and the presence of clinical signs and symptoms consistent with COVID-19, and confirmed with a molecular assay, if necessary, for patient management. For in vitro diagnostic use. In the [place], only for use under an Emergency Use Authorization. In the [place], this test has not been FDA cleared or approved; this test has been authorized by FDA under an EUA for use by authorized laboratories; use by laboratories certified under the CLIA, 42 U.S.C. ?263a, that meet requirements to perform moderate, high, or waived complexity tests and at the Point of Care (POC), i.e., in patient care settings operating under a CLIA Certificate of Waiver, Certificate of Compliance, or Certificate of Accreditation.This test has been authorized only for the detection of proteins from SARS-CoV-2, not for any other viruses or pathogens; and, in the [place], this test is only authorized for the duration of the declaration that circumstances exist justifying the authorization of emergency use of in vitro diagnostics for detection and/or diagnosis of the virus that causes COVID-19 under Section 564(b)(1) of the Act, 21 U.S.C. ? 360bbb-3(b)(1), unless the authorization is terminated or revoked sooner. Performed By: #### 2 [id number] ####[facility] [address] [place] [address] eGFRon 03-11-2023 GFR/1.73 sq M.predicted among non-blacks MDRD (S/P/Bld) [Vol rate/Area] mL/min/{1.73_m2} Normal >=59 [facility] Comment on above: Order Comment: Order added by Discern Expert. Performed By: #### 2 768055, 2881705, 2900864, 1655832, 56965761, 5410328 ####[facility] [address] [place] [address] US Liver limitedon 3 No focal intrahepati c lesions noted. The patient is status post cholecystectomy. MACRO: None Signed by: Harshad Tran 02/14/2023 7:30 AM Dictation workstation: [id number] [facility] Interpreted By: Harshad Tran, STUDY: US ABDOMEN LIMITED LIVER; 02/13/2023 7:27 am INDICATION: Signs/Symptoms:Hx of Hep C. COMPARISON: None. ACCESSION NUMBER(S): [id number] ORDERING CLINICIAN: ANTONIO HUSAIN TECHNIQUE: Multiple images of the right upper quadrant were obtained. FINDINGS: LIVER: The visualized portions of the liver are grossly unremarkable and free of any focal lesions. The liver measures 17.1 cm in length. No focal lesions are identified. GALLBLADDER: Surgically absent. BILIARY TREE: There is no intrahepatic biliary dilatation. The common bile duct is mildly dilated at 8 mm in diameter. This is most likely normal in a post cholecystectomy state. PANCREAS: The visualized pancreas is unremarkable in appearance. RIGHT KIDNEY: The right kidney is normal in size, measuring 11.2 cm in craniocaudal dimension. The renal cortical echogenicity and thickness are within normal limits. No hydronephrosis or renal calculi are seen. [facility] Harshad Tran MD - 02/14/2023 Interpreted By: Harshad Tran, STUDY: US ABDOMEN LIMITED LIVER; 02/13/2023 7:27 am INDICATION: Signs/Symptoms:Hx of Hep C. COMPARISON: None. ACCESSION NUMBER(S): [id number] ORDERING CLINICIAN: ANTONIO HUSAIN TECHNIQUE: Multiple images of the right upper quadrant were obtained. FINDINGS: LIVER: The visualized portions of the liver are grossly unremarkable and free of any focal lesions. The liver measures 17.1 cm in length. No focal lesions are identified. GALLBLADDER: Surgically absent. BILIARY TREE: There is no intrahepatic biliary dilatation. The common bile duct is mildly dilated at 8 mm in diameter. This is most likely normal in a post cholecystectomy state. PANCREAS: The visualized pancreas is unremarkable in appearance. RIGHT KIDNEY: The right kidney is normal in size, measuring 11.2 cm in craniocaudal dimension. The renal cortical echogenicity and thickness are within normal limits. No hydronephrosis or renal calculi are seen. IMPRESSION: No focal intrahepatic lesions noted. The patient is status post cholecystectomy. MACRO: None Signed by: Harshad Tran 02/14/2023 7:30 AM Dictation workstation: [id number] [facility] Work Phone: US Liver limitedOrdered By: Harshad Tran on 02-14-2023 [facility] Work Phone: HCV RNA panel LINDSEY+probeon HCV RNA LINDSEY+probe [Log units/Vol] 7.46 Log IU/mL Normal [facility] Comment on above: Order Comment: Repor table Range: 15-100,000,000 IU/mL. The javier HCV is an in vitro nucleic acid amplification test for both the detection and quantitation of hepatitis C virus (HCV) RNA, in human EDTA plasma or serum, of HCV antibody positive or HCV-infected individuals on the javier 6800/8800 Systems. Dual probes are used to detect and quantify, but not discriminate HCV genotypes 1-6. Though rare, mutations within the highly conserved regions of a viral genome covered by javier HCV may affect primer and/or probe binding resulting in the under-quantitation of virus or failure to detect the presence of virus. The analytical quantification range of this assay has been determined to be 15 to 100,000,000 IU/ml in plasma. If the assay DETECTED the presence of the virus but was not able to accurately quantify the number of copies, the test result will be reported as <15 Detected or >100,000,000 Detected . The javier??? HCV is intended for use as an aid in the diagnosis of HCV infection in the following populations: individuals with antibody evidence of HCV with evidence of liver disease, individuals suspected to be actively infected with HCV antibody evidence, and individuals at risk for HCV infection with antibodies to HCV. Detection of HCV RNA indicates that the virus is replicating and therefore is evidence of active infection. The javier HCV is intended for use as an aid in the management of HCV infected patients undergoing anti-viral therapy. The assay can be used to measure HCV RNA levels at baseline, during treatment, at the end of treatment, and at the end of follow up of treatment to determine sustained or non-sustained viral response. The results must be interpreted within the context of all relevant clinical and laboratory findings. This test is approved by the [place] Food and Drug Administration, and its performance characteristics verified by the Molecular Diagnostic Laboratory, Department of Pathology, [facility]. Performed By: #### 5 0023-1 #### JOLENE Cantu ([id number]) [facility] ([facility]) [address] [place] [address] HCV RNA LINDSEY+probe Qn Detected Abnormal Not detected Un [facility] Comment on above: Order Comment: Repor table Range: 15-100,000,000 IU/mL. The javier HCV is an in vitro nucleic acid amplification test for both the detection and quantitation of hepatitis C virus (HCV) RNA, in human EDTA plasma or serum, of HCV antibody positive or HCV-infected individuals on the javier World Reviewer0/8800 Systems. Dual probes are used to detect and quantify, but not discriminate HCV genotypes 1-6. Though rare, mutations within the highly conserved regions of a viral genome covered by javier HCV may affect primer and/or probe binding resulting in the under-quantitation of virus or failure to detect the presence of virus. The analytical quantification range of this assay has been determined to be 15 to 100,000,000 IU/ml in plasma. If the assay DETECTED the presence of the virus but was not able to accurately quantify the number of copies, the test result will be reported as <15 Detected or >100,000,000 Detected . The javier??? HCV is intended for use as an aid in the diagnosis of HCV infection in the following populations: individuals with antibody evidence of HCV with evidence of liver disease, individuals suspected to be actively infected with HCV antibody evidence, and individuals at risk for HCV infection with antibodies to HCV. Detection of HCV RNA indicates that the virus is replicating and therefore is evidence of active infection. The javier HCV is intended for use as an aid in the management of HCV infected patients undergoing anti-viral therapy. The assay can be used to measure HCV RNA levels at baseline, during treatment, at the end of treatment, and at the end of follow up of treatment to determine sustained or non-sustained viral response. The results must be interpreted within the context of all relevant clinical and laboratory findings. This test is approved by the [place] Food and Drug Administration, and its performance characteristics verified by the Molecular Diagnostic Laboratory, Department of Pathology, [facility]. Performed By: #### 5 0023-1 #### JOLENE Cantu ([id number]) [facility] ([facility]) [address] [place] [address] Hepatitis C virus Abon 02-13 HCV Ab Ql (S) Reactive Abnormal Nonreactive [facility] Comment on above: Result Comment: HCV antibody detected. HCV RNA PCR has been ordered to evaluate the possibility of a current infection. Results from patients taking biotin supplements or receiving high-dose biotin therapy should be interpreted with caution due to possible interference with this test. Providers may contact their local laboratory for further information. Performed By: #### 1 6128-1 #### JOLENE Cantu ([id number]) [facility] ([facility]) [address] [place] [address] US ABDOMEN LIMITED LIVERon 1 04-15-2022 US ABDOMEN LIMITED LIVER Interpreted By: Harshad Tran, STUDY: US ABDOMEN LIMITED LIVER; 02/13/2023 7:27 am INDICATION: Signs/Symptoms:Hx of Hep C. COMPARISON: None. ACCESSION NUMBER(S): [id number] ORDERING CLINICIAN: ANTONIO HUSAIN TECHNIQUE: Multiple images of the right upper quadrant were obtained. FINDINGS: LIVER: The visualized portions of the liver are grossly unremarkable and free of any focal lesions. The liver measures 17.1 cm in length. No focal lesions are identified. GALLBLADDER: Surgically absent. BILIARY TREE: There is no intrahepatic biliary dilatation. The common bile duct is mildly dilated at 8 mm in diameter. This is most likely normal in a post cholecystectomy state. PANCREAS: The visualized pancreas is unremarkable in appearance. RIGHT KIDNEY: The right kidney is normal in size, measuring 11.2 cm in craniocaudal dimension. The renal cortical echogenicity and thickness are within normal limits. No hydronephrosis or renal calculi are seen. IMPRESSION: No focal intrahepatic lesions noted. The patient is status post cholecystectomy. MACRO: None Signed by: Harshad Tran 02/14/2023 7:30 AM Dictation workstation: [id number] [facility] US Liver limitedon 3 Radiology Study observation (narrative) [facility] Work Phone: Consent for Treatmenton 01-24 Consent for Treatment [id number]#1.00TIF F Normal [facility] Discharge Instructionson Discharge Instructions [id number]#1.00TIF F Normal [facility] ED Clinical Summaryon 2022 ED Clinical Summary Normal [facility] ED Note-Physicianon 02-13-20 ED Note-Physician Normal [facility] Comment on above: Result Comment: Elec tronically Signed By: Pedro Pablo Fletcher DO\.br\Date and Time Signed: 02/12/23 20:43 EST ED Patient Education Noteon 02-12-2023 ED Patient Education Note Normal [facility] ED Patient Summaryon 023 ED Patient Summary Normal [facility] ED Note-Physicianon 02-09-20 ED Note-Physician Normal [facility] Comment on above: Result Comment: Elec tronically Signed By: Elisa Sánchez DO\.br\Date and Time Signed: 02/08/23 00:49 EST Consent for Treatmenton 01-23 Consent for Treatment [id number]#1.00TIF F [facility] Discharge Instructionson Discharge Instructions [id number]#1.00TI FF [facility] ED Clinical Summaryon 2022 ED Clinical Summary Normal [facility] ED Patient Education Noteon 02-07-2023 ED Patient Education Note Normal [facility] ED Patient Summaryon ED Patient Summary [facility] ED Note-Physicianon 02-05-20 ED Note-Physician [facility] Comment on above: Result Comment: Elec tronically Signed By: Robert Taylor PA-C\.br\Date and Time Signed: 01/29/23 12:25 EST\.br\Electronically Co-Signed By: Jorge Mcintosh DO\.br\Date and Time Co-Signed: 02/04/23 07:04 EST Consent for Treatmenton Consent for Treatment [id number]#1.00TIF F [facility] Discharge Instructionson Discharge Instructions [id number]#1.00TI FF [facility] ED Clinical Summaryon 2022 ED Clinical Summary Normal [facility] ED Patient Education Noteon 01-29-2023 ED Patient Education Note [facility] ED Patient Summaryon 023 ED Patient Summary [facility] Consent for Treatmenton 12-25 Consent for Treatment [id number] F [facility] Discharge Instructionson Discharge Instructions [id number] FF [facility] ED Clinical Summaryon 2022 ED Clinical Summary Normal Osbaldo lopez [facility] ED Note-Physicianon 01-23-20 ED Note-Physician Normal [facility] Comment on above: Result Comment: Elec tronically Signed By: Landon Tidwell PA-C\.br\Date and Time Signed: 01/22/23 20:05 EDT\.br\Electronically Co-Signed By: Pedro Pablo Fletcher DO\.br\Date and Time Co-Signed: 01/22/23 20:44 EDT ED Patient Education Noteon 01-22-2023 ED Patient Education Note Normal [facility] ED Patient Summaryon 023 ED Patient Summary Normal [facility] Drugs of abuse screen W Refl ex confirm panel (U)on 01-15-2023 Amphetamines Screen Ql (U) Negative Normal Presumptive Negative [facility] Comment on above: Order Comment: Drug screen results are presumptive and should not be used to assess compliance with prescribed medication. Definitive confirmatory drug testing has been added to this sample for any positive screen result and will be reported separately. Toxicology screening results are reported qualitatively. The concentration must be greater than or equal to the cutoff to be reported as positive. The concentration at which the screening test can detect an individual drug or metabolite varies. The absence of expected drug(s) and/or drug metabolite(s) may indicate non-compliance, inappropriate timing of specimen collection relative to drug administration, poor drug absorption, diluted/adulterated urine, or limitations of testing. For medical purposes only; not valid for forensic use. Interpretive questions should be directed to the laboratory medical directors. Result Comment: CUTO FF LEVEL: 500 NG/ML Cross-reactivity has been reported with high concentrations of the following drugs: buproprion, chloroquine, chlorpromazine, ephedrine, mephentermine, fenfluramine, phentermine, phenylpropanolamine, pseudoephedrine, and propranolol. Performed By: #### 8 7428-9 #### DAVILA LEX ([id number]) [facility] ([facility]) [address] [place] [address] Barbiturates Screen Ql (U) Negative Normal Presumptive Negative [facility] Comment on above: Order Comment: Drug screen results are presumptive and should not be used to assess compliance with prescribed medication. Definitive confirmatory drug testing has been added to this sample for any positive screen result and will be reported separately. Toxicology screening results are reported qualitatively. The concentration must be greater than or equal to the cutoff to be reported as positive. The concentration at which the screening test can detect an individual drug or metabolite varies. The absence of expected drug(s) and/or drug metabolite(s) may indicate non-compliance, inappropriate timing of specimen collection relative to drug administration, poor drug absorption, diluted/adulterated urine, or limitations of testing. For medical purposes only; not valid for forensic use. Interpretive questions should be directed to the laboratory medical directors. Result Comment: CUTO FF LEVEL: 200 NG/ML Performed By: #### 8 7428-9 #### GIOVANNI BURNETT ([id number]) [facility] ([facility]) [address] [place] [address] Benzodiazepines Ql (U) Negative Normal Presu mptive Negative [facility] Comment on above: Order Comment: Drug screen results are presumptive and should not be used to assess compliance with prescribed medication. Definitive confirmatory drug testing has been added to this sample for any positive screen result and will be reported separately. Toxicology screening results are reported qualitatively. The concentration must be greater than or equal to the cutoff to be reported as positive. The concentration at which the screening test can detect an individual drug or metabolite varies. The absence of expected drug(s) and/or drug metabolite(s) may indicate non-compliance, inappropriate timing of specimen collection relative to drug administration, poor drug absorption, diluted/adulterated urine, or limitations of testing. For medical purposes only; not valid for forensic use. Interpretive questions should be directed to the laboratory medical directors. Result Comment: CUTO FF LEVEL: 200 NG/ML Performed By: #### 8 7428-9 #### GIOVANNI BURNETT ([id number]) [facility] ([facility]) [address] [place] [address] Benzoylecgonine Screen Ql (U) Negative Normal Presumptive Negative [facility] Ambulatory Comment on above: Order Comment: Drug screen results are presumptive and should not be used to assess compliance with prescribed medication. Definitive confirmatory drug testing has been added to this sample for any positive screen result and will be reported separately. Toxicology screening results are reported qualitatively. The concentration must be greater than or equal to the cutoff to be reported as positive. The concentration at which the screening test can detect an individual drug or metabolite varies. The absence of expected drug(s) and/or drug metabolite(s) may indicate non-compliance, inappropriate timing of specimen collection relative to drug administration, poor drug absorption, diluted/adulterated urine, or limitations of testing. For medical purposes only; not valid for forensic use. Interpretive questions should be directed to the laboratory medical directors. Result Comment: CUTO FF LEVEL: 150 NG/ML Performed By: #### 8 7428-9 #### GIOVANNI BURNETT ([id number]) [facility] ([facility]) [address] [place] [address] Cannabinoids Screen Ql (U) Negative Normal Presumptive Negative [facility] Ambulatory Comment on above: Order Comment: Drug screen results are presumptive and should not be used to assess compliance with prescribed medication. Definitive confirmatory drug testing has been added to this sample for any positive screen result and will be reported separately. Toxicology screening results are reported qualitatively. The concentration must be greater than or equal to the cutoff to be reported as positive. The concentration at which the screening test can detect an individual drug or metabolite varies. The absence of expected drug(s) and/or drug metabolite(s) may indicate non-compliance, inappropriate timing of specimen collection relative to drug administration, poor drug absorption, diluted/adulterated urine, or limitations of testing. For medical purposes only; not valid for forensic use. Interpretive questions should be directed to the laboratory medical directors. Result Comment: CUTO FF LEVEL: 50 NG/ML Performed By: #### 8 7428-9 #### GIOVANNI BURNETT ([id number]) [facility] ([facility]) [address] [place] [address] fentaNYL+Norfentanyl Screen Ql (U) Negative Normal Presumptive Negative [facility] Ambulatory Comment on above: Order Comment: Drug screen results are presumptive and should not be used to assess compliance with prescribed medication. Definitive confirmatory drug testing has been added to this sample for any positive screen result and will be reported separately. Toxicology screening results are reported qualitatively. The concentration must be greater than or equal to the cutoff to be reported as positive. The concentration at which the screening test can detect an individual drug or metabolite varies. The absence of expected drug(s) and/or drug metabolite(s) may indicate non-compliance, inappropriate timing of specimen collection relative to drug administration, poor drug absorption, diluted/adulterated urine, or limitations of testing. For medical purposes only; not valid for forensic use. Interpretive questions should be directed to the laboratory medical directors. Result Comment: CUTO FF LEVEL: 5 NG/ML Performed By: #### 8 7428-9 #### GIOVANNI BURNETT ([id number]) [facility] ([facility]) [address] [place] [address] Opiates Screen Ql (U) Positive Abnormal Presum ptive Negative [facility] Ambulatory Comment on above: Order Comment: Drug screen results are presumptive and should not be used to assess compliance with prescribed medication. Definitive confirmatory drug testing has been added to this sample for any positive screen result and will be reported separately. Toxicology screening results are reported qualitatively. The concentration must be greater than or equal to the cutoff to be reported as positive. The concentration at which the screening test can detect an individual drug or metabolite varies. The absence of expected drug(s) and/or drug metabolite(s) may indicate non-compliance, inappropriate timing of specimen collection relative to drug administration, poor drug absorption, diluted/adulterated urine, or limitations of testing. For medical purposes only; not valid for forensic use. Interpretive questions should be directed to the laboratory medical directors. Result Comment: CUTO FF LEVEL: 300 NG/ML The opiate screen does not detect fentanyl, meperidine, or tramadol. Oxycodone is not consistently detected (refer to Oxycodone Screen, Urine result). Performed By: #### 8 7428-9 #### GIOVANNI BURNETT ([id number]) [facility] ([facility]) [address] [place], [place] [id number] oxyCODONE+oxyMORphone Screen Ql (U) Negative Normal Presumptive Negative [facility] Ambulatory Comment on above: Order Comment: Drug screen results are presumptive and should not be used to assess compliance with prescribed medication. Definitive confirmatory drug testing has been added to this sample for any positive screen result and will be reported separately. Toxicology screening results are reported qualitatively. The concentration must be greater than or equal to the cutoff to be reported as positive. The concentration at which the screening test can detect an individual drug or metabolite varies. The absence of expected drug(s) and/or drug metabolite(s) may indicate non-compliance, inappropriate timing of specimen collection relative to drug administration, poor drug absorption, diluted/adulterated urine, or limitations of testing. For medical purposes only; not valid for forensic use. Interpretive questions should be directed to the laboratory medical directors. Result Comment: CUTO FF LEVEL: 100 NG/ML This test will accurately detect both oxycodone and oxymorphone. Performed By: #### 8 7428-9 #### GIOVANNI BURNETT ([id number]) [facility] ([facility]) [address] [place] [address] Phencyclidine Ql (U) Negative Normal Presump tive Negative [facility] Ambulatory Comment on above: Order Comment: Drug screen results are presumptive and should not be used to assess compliance with prescribed medication. Definitive confirmatory drug testing has been added to this sample for any positive screen result and will be reported separately. Toxicology screening results are reported qualitatively. The concentration must be greater than or equal to the cutoff to be reported as positive. The concentration at which the screening test can detect an individual drug or metabolite varies. The absence of expected drug(s) and/or drug metabolite(s) may indicate non-compliance, inappropriate timing of specimen collection relative to drug administration, poor drug absorption, diluted/adulterated urine, or limitations of testing. For medical purposes only; not valid for forensic use. Interpretive questions should be directed to the laboratory medical directors. Result Comment: CUTO FF LEVEL: 25 NG/ML Cross-reactivity has been reported with dextromethorphan. Performed By: #### 8 7428-9 #### GIOVANNI BURNETT ([id number]) [facility] ([facility]) [address] [place], [place] [id number] Opiates Confirm (U) [Mass/Vo l]on 01-15-2023 6-Monoacetylmorphine (6-PERLITA) Confirm (U) [Mass/Vol] <25 Normal <25 [facility] Ambulatory Comment on above: Order Comment: The p erformance characteristics of the Opiate Confirmation, Urine has been validated by the individual laboratory site where testing is performed. It has not been cleared or approved by the FDA. However the FDA has determined that such clearance or approval is not necessary. Our Laboratory is certified under the Clinical Laboratory Improvement Amendments of 1988 (CLIA) as qualified to perform high complexity clinical laboratory testing. Performed By: #### 1 7384-9 #### JOLENE Cantu ([id number]) [facility] ([facility]) [address] [place] [address] Codeine Confirm (U) [Mass/Vol] <50 Normal <50 [facility] Ambulatory Comment on above: Order Comment: The p erformance characteristics of the Opiate Confirmation, Urine has been validated by the individual laboratory site where testing is performed. It has not been cleared or approved by the FDA. However the FDA has determined that such clearance or approval is not necessary. Our Laboratory is certified under the Clinical Laboratory Improvement Amendments of 1988 (CLIA) as qualified to perform high complexity clinical laboratory testing. Performed By: #### 1 7384-9 #### JOLENE Cantu ([id number]) [facility] ([facility]) [address] [place] [address] HYDROcodone cutoff Confirm (U) [Mass/Vol] <25 Normal <25 [facility] Ambulatory Comment on above: Order Comment: The p erformance characteristics of the Opiate Confirmation, Urine has been validated by the individual laboratory site where testing is performed. It has not been cleared or approved by the FDA. However the FDA has determined that such clearance or approval is not necessary. Our Laboratory is certified under the Clinical Laboratory Improvement Amendments of 1988 (CLIA) as qualified to perform high complexity clinical laboratory testing. Performed By: #### 1 7384-9 #### JOLENE RONQUILLO L ([id number]) [facility] ([facility]) [address] [place] [address] HYDROmorphone Confirm (U) [Mass/Vol] <25 Normal <25 [facility] Ambulatory Comment on above: Order Comment: The p erformance characteristics of the Opiate Confirmation, Urine has been validated by the individual laboratory site where testing is performed. It has not been cleared or approved by the FDA. However the FDA has determined that such clearance or approval is not necessary. Our Laboratory is certified under the Clinical Laboratory Improvement Amendments of 1988 (CLIA) as qualified to perform high complexity clinical laboratory testing. Performed By: #### 1 7384-9 #### JOLENE WELSHMOTZER L ([id number]) [facility] ([facility]) [address] [place] [address] Morphine Confirm (U) [Mass/Vol] 207 ng/mL High <50 [facility] Ambulatory Comment on above: Order Comment: The p erformance characteristics of the Opiate Confirmation, Urine has been validated by the individual laboratory site where testing is performed. It has not been cleared or approved by the FDA. However the FDA has determined that such clearance or approval is not necessary. Our Laboratory is certified under the Clinical Laboratory Improvement Amendments of 1988 (CLIA) as qualified to perform high complexity clinical laboratory testing. Result Comment: Cons istent with metabolism of a drug containing codeine or heroin. May also reflect independent use of a drug containing morphine. Performed By: #### 1 7384-9 #### JOLENE Cantu ([id number]) [facility] ([facility]) [address] [place] [address]68 Norhydrocodone Confirm (U) [Mass/Vol] <25 Normal <25 [facility] Ambulatory Comment on above: Order Comment: The p erformance characteristics of the Opiate Confirmation, Urine has been validated by the individual laboratory site where testing is performed. It has not been cleared or approved by the FDA. However the FDA has determined that such clearance or approval is not necessary. Our Laboratory is certified under the Clinical Laboratory Improvement Amendments of 1988 (CLIA) as qualified to perform high complexity clinical laboratory testing. Performed By: #### 1 7384-9 #### JOLENE Cantu ([id number]) [facility] ([facility]) [address] [place] [address] Noroxycodone Confirm (U) [Mass/Vol] 711 ng/mL High <25 [facility] Ambulatory Comment on above: Order Comment: The p erformance characteristics of the Opiate Confirmation, Urine has been validated by the individual laboratory site where testing is performed. It has not been cleared or approved by the FDA. However the FDA has determined that such clearance or approval is not necessary. Our Laboratory is certified under the Clinical Laboratory Improvement Amendments of 1988 (CLIA) as qualified to perform high complexity clinical laboratory testing. Result Comment: Noro xycodone is a metabolite of oxycodone; consistent with use of a drug containing oxycodone. Performed By: #### 1 7384-9 #### JOLENE Cantu ([id number]) [facility] ([facility]) [address] [place], [place] [phone] oxyCODONE Confirm (U) [Mass/Vol] 63 ng/mL High <25 [facility] Ambulatory Comment on above: Order Comment: The p erformance characteristics of the Opiate Confirmation, Urine has been validated by the individual laboratory site where testing is performed. It has not been cleared or approved by the FDA. However the FDA has determined that such clearance or approval is not necessary. Our Laboratory is certified under the Clinical Laboratory Improvement Amendments of 1988 (CLIA) as qualified to perform high complexity clinical laboratory testing. Result Comment: Cons istent with use of drug containing oxycodone. Performed By: #### 1 7384-9 #### JOLENE Cantu ([id number]) [facility] ([facility]) [address] [place] [address] oxyMORphone Confirm (U) [Mass/Vol] <25 Normal <25 [facility] Ambulatory Comment on above: Order Comment: The p erformance characteristics of the Opiate Confirmation, Urine has been validated by the individual laboratory site where testing is performed. It has not been cleared or approved by the FDA. However the FDA has determined that such clearance or approval is not necessary. Our Laboratory is certified under the Clinical Laboratory Improvement Amendments of 1988 (CLIA) as qualified to perform high complexity clinical laboratory testing. Performed By: #### 1 7384-9 #### JOLENE Cantu ([id number]) [facility] ([facility]) [address] [place], [place] [address] Consent for Treatmenton 12-24 Consent for Treatment [id number]#1.00TIF F Normal [facility] Discharge Instructionson Discharge Instructions [id number]#1.00T IFF Normal [facility] ED Clinical Summaryon 2022 ED Clinical Summary [facility]-Physicianon 01-15-20 ED Note-Physician Normal [facility] Comment on above: Result Comment: Elec tronically Signed By: Eden Salomon\.br\Date and Time Signed: 01/14/23 15:35 EDT\.br\Electronically Co-Signed By: Jorge Mcintosh DO\.br\Date and Time Co-Signed: 01/14/23 15:43 EDT ED Patient Education Noteon 01-14-2023 ED Patient Education Note Normal [facility] ED Patient Summaryon 023 ED Patient Summary Normal [facility] ED Note-Physicianon 01-14-20 ED Note-Physician Normal [facility] Comment on above: Result Comment: Elec tronically Signed By: Balbina Bryant M.D.\.br\Date and Time Signed: 01/13/23 01:40 EDT XR Spine Lumbosacral 2 or 3 Viewson 01-13-2023 XR Spine Lumbosacral 2 or 3 Views [facility] Consent for Treatmenton 12-24 Consent for Treatment [id number]#1.00TIF F [facility] Discharge Instructionson Discharge Instructions [id number]#1.00TIF F [facility] ED Clinical Summaryon 2022 ED Clinical Summary Normal [facility] ED Note-Nursingon 01-12-2023 ED Note-Nursing [facility] ED Note-Nursing pt given d/c instructions and educated on importance of follow up. pt educated on new medication. pt verbalized understanding of instructions and readiness for d/c. pt was wheeled to her cousins car in stable condition. Normal [facility] ED Patient Education Noteon 01-12-2023 ED Patient Education Note Normal [facility] ED Patient Summaryon 023 ED Patient Summary Normal [facility] Consent for Treatmenton 12-23 Consent for Treatment [id number]#1.00TIF F [facility] Discharge Instructionson Discharge Instructions [id number]#1.00TIF F Normal [facility] ED Clinical Summaryon 2022 ED Clinical Summary Normal [facility] ED Note-Physicianon 01-11-20 ED Note-Physician Normal [facility] Comment on above: Result Comment: Elec tronically Signed By: Nikhil Tubbs DO\.br\Date and Time Signed: 01/10/23 11:50 EDT ED Patient Education Noteon 01-10-2023 ED Patient Education Note Normal [facility] ED Patient Summaryon 023 ED Patient Summary Normal [facility] CT Spine Lumbar w/o Contrast on 01-05-2023 CT Spine Lumbar w/o Contrast Normal [facility] Discharge Instructionson Discharge Instructions [id number]#1.00TI FF Normal [facility] ED Clinical Summaryon 2022 ED Clinical Summary Normal [facility] ED Note-Physicianon 01-06-20 ED Note-Physician Normal [facility] Comment on above: Result Comment: Elec tronically Signed By: Balbina Bryant M.D.\.br\Date and Time Signed: 01/05/23 00:31 EDT ED Patient Education Noteon 01-05-2023 ED Patient Education Note Normal [facility] ED Patient Summaryon ED Patient Summary Normal [facility] RAD - Preliminary Cat Scan R eporton 01-05-2023 RAD - Preliminary Cat Scan Report [id number]#1.00TI FF Normal [facility] XR Hip 2-3 Views Left + Pelv kavin 01-05-2023 XR Hip 2-3 Views Left + Pelvis Normal [facility] Consent for Treatmenton 12-23 Consent for Treatment [id number]#1.00TIF F Normal [facility] Consent for Treatmenton 12-23 Consent for Treatment [id number]#1.00TIF F Normal [facility] Discharge Instructionson Discharge Instructions [id number]#1.00TI FF Normal [facility] ED Clinical Summaryon 2022 ED Clinical Summary Normal [facility] ED Note-Physicianon 01-03-20 ED Note-Physician [facility] Comment on above: Result Comment: Elec tronically Signed By: Landon Tidwell PA-C\.br\Date and Time Signed: 01/02/23 18:55 EDT\.br\Electronically Co-Signed By: Nikhil Tubbs DO.br\Date and Time Co-Signed: 01/02/23 20:25 EDT ED Patient Education Noteon 01-02-2023 ED Patient Education Note Normal [facility] ED Patient Summaryon ED Patient Summary Normal [facility] ED Note-Physicianon 01-02-20 ED Note-Physician Normal [facility] Comment on above: Result Comment: Elec tronically Signed By: Landon Tidwell PA-C\.br\Date and Time Signed: 01/01/23 00:28 EDT\.br\Electronically Co-Signed By: Elisa Sánchez DO.br\Date and Time Co-Signed: 01/01/23 01:37 EDT Consent for Treatmenton Consent for Treatment [id number]#1.00TIF F Normal [facility] Discharge Instructionson Discharge Instructions [id number]#1.00TI FF Normal [facility] ED Clinical Summaryon 2022 ED Clinical Summary Normal [facility] ED Patient Education Noteon 12-31-2022 ED Patient Education Note Normal [facility] ED Patient Summaryon 023 ED Patient Summary Normal [facility] XR lumbar spine 6V w bending on 12-28-2022 XR lumbar spine 6V w bending [address] [address] XRay Report Signed Patient: Jerad Tracy MR#: [id number] : 1975 Acct:[id number] Age/Sex: 47 / F ADM Date: 12/28/22 Loc: XD Room: Type: [facility] Attending Dr: Rose Marie RUFF Copies to: ELZBIETA Kaye Ordering Provider: ELZBIETA Kaye Date of Service: 12/28/22 XR/XR lumbar spine 6V w bending: M54.17 6 views of the Lumbar Spinewith bending HISTORY: Low back pain with radiation into the legs. Numbness and tingling. COMPARISON: 12/09/2022 POSTSURGICAL CHANGES: Right upper quadrant surgical clips. Tubal ligation clips. BONY ALIGNMENT: Similar mild L4-5 degenerative retrolisthesis. No hypermobility. FRACTURE: None DEGENERATIVE CHANGES: Similar moderate L4-5 and mild L5-S1 spondylosis. Lower lumbar hypertrophic facet changes. SOFT TISSUES: Unremarkable BONY MINERALIZATION:Adequate XR/XR lumbar spine 6V w bending IMPRESSION: No hypermobility. Similar lower lumbar degeneration. Impression dictated by: Declan Bailey M.D.12/28/2022 3:27 PM Dictation Location: [place] [address] Transcribed By: [facility] 12/28/221526 Dictated By: Declan Bailey DO 12/28/22 1525 Signed By: 12/28/22 152 Normal [facility] Consent for Treatmenton Consent for Treatment [id number]#1.00CD: 127 Normal [facility] Discharge Instructionson Discharge Instructions [id number]#1.00CD :127 Normal [facility] ED Clinical Summaryon 2022 ED Clinical Summary Normal [facility] ED Note-Physicianon 12-27-19 ED Note-Physician Normal [facility] Comment on above: Result Comment: Elec tronically Signed By: Brandon MILES, Robert\.br\Date and Time Signed: 12/26/22 17:06 EDT\.br\Electronically Co-Signed By: Balbina Bryant M.D.\.br\Date and Time Co-Signed: 12/26/22 17:28 EDT ED Patient Education Noteon 12-26-2022 ED Patient Education Note Normal [facility] ED Patient Summaryon 023 ED Patient Summary Normal [facility] XR Spine Lumbosacral 2 or 3 Viewson 12-24-2022 XR Spine Lumbosacral 2 or 3 Views Normal [facility] Consent for Treatmenton Consent for Treatment [id number]#1.00CD: 127 Normal [facility] Discharge Instructionson Discharge Instructions [id number]#1.00CD: 127 Normal [facility] ED Clinical Summaryon 2022 ED Clinical Summary Normal [facility] ED Note-Physicianon 12-24-19 ED Note-Physician Normal [facility] Comment on above: Result Comment: Elec tronically Signed By: Nikhil Tubbs DO\.br\Date and Time Signed: 12/23/22 19:56 EDT ED Patient Education Noteon 12-23-2022 ED Patient Education Note Normal [facility] ED Patient Summaryon 023 ED Patient Summary Normal [facility] Progress Note-Nurseon 2022 Progress Note-Nurse left without papers Normal [facility] ED Note-Physicianon 12-23-19 ED Note-Physician Normal [facility] Comment on above: Result Comment: Elec tronically Signed By: Landon Tidwell PA-C\.br\Date and Time Signed: 12/07/22 23:23 EDT\.br\Electronically Co-Signed By: Chandana Varela MD\.br\Date and Time Co-Signed: 12/22/22 19:17 EDT Result Comment: Elec tronically Signed By: Robert Taylor PA-C\.br\Date and Time Signed: 12/18/22 13:31 EDT\.br\Electronically Co-Signed By: Jorge Mcintosh DO\.br\Date and Time Co-Signed: 12/22/22 18:47 EDT Consent for Treatmenton 11-24 Consent for Treatment [id number]#1.00CD: 127 Normal [facility] Discharge Instructionson Discharge Instructions [id number]#1.00CD: 127 Normal [facility] ED Clinical Summaryon 2022 ED Clinical Summary Normal [facility] ED Patient Education Noteon 12-18-2022 ED Patient Education Note Normal [facility] ED Patient Summaryon 023 ED Patient Summary [facility] ED Note-Physicianon 12-15-19 ED Note-Physician [facility] Comment on above: Result Comment: Elec tronically Signed By: Angelic Reece PA-C\.br\Date and Time Signed: 12/13/22 23:26 EDT\.br\Electronically Co-Signed By: Nikhil Tubbs DO\.br\Date and Time Co-Signed: 12/14/22 06:46 EDT Consent for Treatmenton 11-24 Consent for Treatment [id number]: 127 Normal [facility] Discharge Instructionson Discharge Instructions [id number]: 127 Normal [facility] Discharge Instructions [id number]: 127 Normal [facility] ED Clinical Summaryon 2022 ED Clinical Summary Normal [facility] ED Clinical Summary Normal [facility] ED Note-Physicianon 12-14-19 ED Note-Physician [facility] Comment on above: Result Comment: Elec tronically Signed By: Sam Dowd PA-C\.br\Date and Time Signed: 12/12/22 23:57 EDT\.br\Electronically Co-Signed By: Elisa Sánchez DO\.br\Date and Time Co-Signed: 12/13/22 01:13 EDT ED Patient Education Noteon 12-13-2022 ED Patient Education Note Normal [facility] ED Patient Education Note Normal [facility] ED Patient Summaryon 023 ED Patient Summary Normal [facility] ED Patient Summary Normal [facility] MRI Spine Lumbar w/o Contras ton 12-13-2022 MRI Spine Lumbar w/o Contrast Normal [facility] Monitor Recordon 12-13-2022 Monitor Record [id number] :127 Normal [facility] RAD - Preliminary Cat Scan R eporton 12-13-2022 RAD - Preliminary Cat Scan Report [id number]#[id number]: 127 Normal [facility] U BetaHcg QualOrdered By: Vimal wn Case on 12-13-2022 HCG.beta subunit (U) [Moles/Vol] Negative Normal [facility] Man Sero Comment on above: Performed By: #### 2 [id number] ####[facility] [address] [place] [address] UA With Cult Reflexon 2022 Bacteria LM Ql (Urine sed) TRACE Normal Trace [facility] Comment on above: Performed By: #### 1 [id number] ####[facility] [address] [place] [address] Bilirubin Ql (U) 1+ Abnormal Negative [facility] Comment on above: Performed By: #### 1 [id number] ####[facility] [address] [place] [address] Calcium oxalate crystals LM Ql (Urine sed) Present Normal [facility] Comment on above: Performed By: #### 1 [id number] ####[facility] [address] [place] [address] Color (U) YELLOW Normal Yellow [facility] Comment on above: Performed By: #### 1 [id number] ####[facility] [address] [facility] [place] [address] Crystals LM Ql (Urine sed) Present Normal [facility] Comment on above: Performed By: #### 1 [id number] ####[facility] [address] [facility] [place] [address] Glucose Test strip (U) [Mass/Vol] Negative Normal Negative [facility] Comment on above: Performed By: #### 1 [id number] ####[facility] [address] [facility] [place] [address] Hemoglobin Ql (U) Negative Normal Negative [facility] Comment on above: Performed By: #### 1 [id number] ####[facility] [address] [facility] [place] [address] Ketones (U) [Mass/Vol] TRACE Invalid Interpretation Code Negative [facility] Comment on above: Performed By: #### 1 [id number] ####[facility] [address] [place] [address] [place].plasma/[place]. RBC (Bld) [Mass ratio] 0-3 Normal 0-3 [facility] Comment on above: Performed By: #### 1 [id number] ####[facility] [address] [facility] [place] [address] Mucus Ql (Urine sed) 3+ Normal [facility] Comment on above: Performed By: #### 1 [id number] ####[facility] [address] [facility] [place] [address] Nitrite Ql (U) Negative Normal Negative [facility] Comment on above: Performed By: #### 1 [id number] ####[facility] [address] [facility] [place] [address] pH (U) 6.0 [pH] Invalid Interpretation Code 5.0-9.0 [facility] Comment on above: Performed By: #### 1 [id number] ####[facility] [address] [facility] [place] [address] Protein (U) [Mass/Vol] 1+ Abnormal Negative Fi [facility] Comment on above: Performed By: #### 1 [id number] ####[facility] [address] [place] [address] Specific gravity (U) [Rel density] >=1.030 Invalid Interpretation Code 1.005-1.030 [facility] Comment on above: Performed By: #### 1 [id number] ####[address] [address] Type of Urine collection method Clean Catch Normal [facility] Comment on above: Performed By: #### 1 [id number] ####[address] [address] Urobilinogen Qn (U) 0.2 {Jan'U}/dL Normal 0.0-1.0 [facility] Comment on above: Performed By: #### 1 [id number] ####[address] [address] WBC Auto Ql (U) Negative Normal Negative [facility] Comment on above: Performed By: #### 1 [id number] ####[address] [address] WBC LM.HPF (Urine sed) [#/Area] 0-5 Normal 0-5 [facility] Comment on above: Performed By: #### 1 [id number] ####[address] [address] UA With Cult ReflexOrdered B y: Zoë Joyce on 12-13-2022 Clarity (U) SL CLOUDY Invalid Interpretation Code [facility] UA Auto SS Comment on above: Performed By: #### 1 [id number] ####[address] [address] Epithelial cells.squamous LM.HPF (Urine sed) [#/Area] /[HPF] Normal 0-2 [facility] UA Auto SS Comment on above: Performed By: #### 1 [id number] ####[address] [address] URINALYSISOrdered By: Zoë gordon on 12-13-2022 Bacteria LM Ql (Urine sed) Trace /HPF Normal Trace/HPF [facility] UA Auto SS Bilirubin Ql (U) 1+ *ABN* (12/13/22 5:52 PM) Invalid Interpretation Code Negative [facility] UA Auto SS Calcium oxalate crystals LM Ql (Urine sed) Present (12/13/22 5:52 PM) Normal [facility] UA Auto SS Color (U) Yellow (12/13/22 5:52 PM) Normal Yellow [facility] UA Auto SS Crystals LM Ql (Urine sed) Present (12/13/22 5:52 PM) Normal [facility] UA Auto SS Glucose Test strip (U) [Mass/Vol] Negative (12/13/22 5:52 PM) Normal Negative [facility] UA Auto SS Hemoglobin Ql (U) Negative (12/13/22 5:52 PM) Normal Negative [facility] UA Auto SS Ketones (U) [Mass/Vol] Trace *NA* (12/13/22 5:52 PM) Invalid Interpretation Code Negative [facility] UA Auto SS [place].plasma/[place]. RBC (Bld) [Mass ratio] 0-3 /HPF Normal 0-3/HPF [facility] UA Auto SS Mucus Ql (Urine sed) 3+ (12/13/22 5:52 PM) Normal [facility] UA Auto SS Nitrite Ql (U) Negative (12/13/22 5:52 PM) Normal Negative [facility] UA Auto SS pH (U) 6.0 *NA* (12/13/22 5:52 PM) Invalid Interpretation Code 5.0 - 9.0 [facility] UA Auto SS Protein (U) [Mass/Vol] 1+ *ABN* (12/13/22 5:52 PM) Invalid Interpretation Code Negative [facility] UA Auto SS Specific gravity (U) [Rel density] >=1.030 *NA* (12/13/22 5:52 PM) Invalid Interpretation Code 1.005 - 1.030 [facility] UA Auto SS UA Spec Desc Clean Catch (12/13/22 5:52 PM) Normal [facility] UA Auto SS Urobilinogen Qn (U) 0.3967878 {Jan'U}/dL Normal 0.0 - 1.0 EU/dL [facility] UA Auto SS WBC Auto Ql (U) Negative (12/13/22 5:52 PM) Normal Negative [facility] UA Auto SS WBC LM.HPF (Urine sed) [#/Area] 0-5 /HPF Normal 0-5/HPF FT UA Auto SS XR Chest Single Viewon 12-13 XR Chest Single View Normal [facility] Auto DiffOrdered By: SYSTEM SYSTEM on 12-12-2022 Basophils/100 WBC (Bld) 0.2 % Normal 0.0-2.0 F [facility] Comment on above: Order Comment: Order Added by Discern Expert. Performed By: #### 2 584328, 4115367, 3207291, 10243131 ####[place] [address] [address] Basophils/Leukocytes Auto (Bld) [Pure # fraction] 0.0 E9/L Normal 0.0-0.2 [facility] Comment on above: Order Comment: Order Added by Discern Expert. Performed By: #### 2 772247, 4033256, 2914003, 24344683 ####[place] [address] [address] Eosinophils/100 WBC (Bld) 0.2 % Normal 0.0-8.0 [facility] Comment on above: Order Comment: Order Added by Discern Expert. Performed By: #### 2 565998, 9306818, 7958956, 51276619 ####[address] [address] Eosinophils/Leukocytes Auto (Bld) [Pure # fraction] 0.0 E9/L Normal 0.0-0.5 [facility] Comment on above: Order Comment: Order Added by Discern Expert. Performed By: #### 2 217405, 8912776, 3252182, 34703617 ####[place] [address] [address] Lymphocytes/100 WBC (Bld) 8.3 % Low 14.0-50.0 [facility] Comment on above: Order Comment: Order Added by Discern Expert. Performed By: #### 2 751396, 6862944, 6665845, 53714858 ####[address] [address] Lymphocytes/Leukocytes Auto (Bld) [Pure # fraction] 1.2 E9/L Normal 1.0-4.0 [facility] Comment on above: Order Comment: Order Added by Discern Expert. Performed By: #### 2 631255, 1742308, 8195017, 52606775 ####[address] [address] Monocytes/100 WBC (Bld) 2.4 % Low 4.0-14.0 F [facility]eAuto[facility] Comment on above: Order Comment: Order Added by Discern Expert. Performed By: #### 2 206611, 5134375, 3974812, 10261130 ####[address] [address] Monocytes/Leukocytes Auto (Bld) [Pure # fraction] 0.3 E9/L Normal 0.2-1.0 [facility] Comment on above: Order Comment: Order Added by Discern Expert. Performed By: #### 2 805822, 2482988, 2645474, 41748432 ####[place] [address] [address] Neutrophils/100 WBC (Bld) 88.9 % High 36.0-75.0 [facility] Comment on above: Order Comment: Order Added by Discern Expert. Performed By: #### 2 960683, 5258961, 1022205, 28304590 ####[address] [address] Neutrophils/Leukocytes Auto (Bld) [Pure # fraction] 12.7 E9/L High 2.0-7.5 [facility] Comment on above: Order Comment: Order Added by Discern Expert. Performed By: #### 2 525865, 7715534, 8558950, 27374655 ####[address] [address] BMPOrdered By: SYSTEM SYSTEM on 12-12-2022 Anion gap [Moles/Vol] 12 mmol/L Normal 6-16 F[facility] C [facility] Comment on above: Performed By: #### 2 414412, 2663618, 1474342, 23020883 ####[facility] [address] [place] [address] Calcium [Mass/Vol] 8.6 mg/dL Low 8.9-11.1 [facility] Comment on above: Performed By: #### 2 707019, 4411515, 2489657, 52972502 ####[facility] [address] [place] [address] Chloride [Moles/Vol] 110 mmol/L Normal 101-111 [facility] Comment on above: Performed By: #### 2 469157, 2493137, 6437203, 37832841 ####[facility] [address] [place] [address] CO2 [Moles/Vol] 19 mmol/L Low 21-31 [facility] Comment on above: Performed By: #### 2 003684, 5689754, 9738456, 93675107 ####[facility] [address] [place] [address] Creatinine [Mass/Vol] 0.9 mg/dL Normal 0.5-1.3 [facility] Comment on above: Performed By: #### 2 642139, 1639736, 3024285, 00168253 ####[address] [address] Glucose [Mass/Vol] 132 mg/dL Normal 55-199 [facility] Remisol Comment on above: Result Comment: If t his glucose result represents a fasting glucose, interpretation should refer to the following reference range: 55-99 mg/dL Performed By: #### 2 732006, 7887072, 8447961, 45326008 ####[facility] [address] [place] [address] Potassium [Moles/Vol] 4.7 mmol/L Normal 3.5-5.3 [facility] Comment on above: Result Comment: 'Spe cimen hemolyzed. Result may be affected. Redraw is recommended.' Result Comment: 'Spe cimen hemolyzed. Result may be affected. Redraw is recommended.' Performed By: #### 2 306928, 7639682, 2361741, 56145464 ####[facility] [address] [place] [address] Sodium [Moles/Vol] 136 mmol/L Normal 135-145 [facility] Remisol Comment on above: Performed By: #### 2 051168, 1109427, 1917821, 69658417 ####[address] [place] [address] Urea nitrogen [Mass/Vol] 17 mg/dL Normal 5-21 [facility] Comment on above: Performed By: #### 2 344159, 2731678, 9754207, 74007251 ####[address] [place] [address] BMPon 12-12-2022 Urea nitrogen/Creatinine [Mass ratio] 19 No Units Normal 10-20 [facility] Comment on above: Performed By: #### 2 787480, 6654683, 0594702, 23135465 ####[facility] [address] [place] [address] CBC w/ Auto DiffOrdered By: Frank Strong on 12-12-2022 Erythrocyte distribution width (RBC) [Ratio] 13.1 % Normal 10.9-14.2 [facility] HemeAutoSS Comment on above: Performed By: #### 2 472099, 3128822, 9781580, 63944940 ####[address] [place] [address] Hematocrit (Bld) [Volume fraction] 42.4 % Normal 34.0-46.0 FT [facility] Comment on above: Performed By: #### 2 178574, 1813593, 0539578, 27807342 ####[address] [place] [address] Hemoglobin (Bld) [Mass/Vol] 14.1 g/dL Normal 12.0-16.0 [facility] Comment on above: Performed By: #### 2 785664, 9260943, 9901513, 37791673 ####[place] [address] [address] MCH (RBC) [Entitic mass] 32.5 pg Normal 27.0-34.0 [facility] Comment on above: Performed By: #### 2 790333, 1133305, 9015135, 92588566 ####[place] [address] [address] MCHC (RBC) [Mass/Vol] 33.4 g/dL Normal 31.4-36.0 [facility] Comment on above: Performed By: #### 2 152970, 4532463, 5626608, 97527989 ####[place] [address] MCV (RBC) [Entitic vol] 97.5 fL Normal 80.0-100.0 F C [facility] Comment on above: Performed By: #### 2 519526, 1641283, 1367057, 14843298 ####[place] [address] Platelet mean volume (Bld) [Entitic vol] 8.6 fL Normal 6.4-10.8 [facility] Comment on above: Performed By: #### 2 370545, 0502148, 2816298, 23362581 ####[place] [address] [address] Platelets (Bld) [#/Vol] 281.0 E9/L Normal 150.0-500.0 [facility] Comment on above: Performed By: #### 2 036681, 0958031, 2660285, 51704197 ####[place] [address] RBC (Bld) [#/Vol] 4.4 E12/L Normal 4.3-5.9 [facility] Comment on above: Performed By: #### 2 621131, 9009001, 2511898, 07965307 ####[place] [address] WBC corrected for nucl RBC Auto (Bld) [#/Vol] 14.3 E9/L High 4.0-11.0 [facility] HemeAuto[facility] Comment on above: Performed By: #### 2 542912, 1539701, 4241116, 32398198 ####[facility] [address] [place] [address] CHEMISTRYOrdered By: SYSTEM SYSTEM on 12-12-2022 Urea nitrogen/Creatinine [Mass ratio] 19 mg/mg Normal - [facility] Remisol Consent for Treatmenton 11-24 Consent for Treatment [id number]#[id number]: 127 Normal [facility] ED Note-Nursingon 12-12-2022 ED Note-Nursing This RN requests to observe patient due to paresthesia, per PA. Sam Okay to put patient back in waiting room Normal [facility] ED Note-Nursing Patient complaint du ring registration not SOB. EKG done when patient reports SOB Normal [facility] RAD - MRI Screening Formon 0 12-12-2022 RAD - MRI Screening Form [id number]#[id number] :127 Normal [facility] eGFROrdered By: SYSTEM SYSTE M on 12-12-2022 GFR/1.73 sq M.predicted among non-blacks MDRD (S/P/Bld) [Vol rate/Area] 80 mL/min/1.73 m2 Normal >=59 [facility] Chem S Comment on above: Order Comment: Order added by Discern Expert. Result Comment: Aniline Press Worker simba kidney disease could be indicated at eGFR's of less than 60 mL/min/1.73m2. Kidney failure is indicated at less than 15 mL/min/1.73m2. Performed By: #### 2 437025, 9664715, 2593213, 70132504 ####[facility] [address] [place] [address] Alanine aminotransferase [En zymatic activity/volume] in Serum or PlasmaOrdered By: Mary Beth Sloan on 12-10-2022 ALT [Catalytic activity/Vol] 39 U/L Normal 7-52 [facility] Comment on above: Performed By: #### C MP, CBC #### [address] Albumin [Mass/volume] in Ser um or Plasma by Bromocresol green (BCG) dye binding methoOrdered By: Mary Beth Bullimore on 12-10-2022 Albumin BCG dye [Mass/Vol] 3.7 g/dL 3.5-5.7 [facility] Alkaline phosphatase [Enzyma tic activity/volume] in Serum or PlasmaOrdered By: Mary Beth Bullimore on 12-10-2022 ALP [Catalytic activity/Vol] 70 U/L Normal 34-104 [facility] Comment on above: Performed By: #### C MP, CBC #### [address] Amorphous urine sedimentOrde red By: Deb Carmichael on 12-10-2022 Amorphous sediment LM Ql (Urine sed) 2+ [LPF] [facility] Aspartate aminotransferase [ Enzymatic activity/volume] in Serum or PlasmaOrdered By: Mary Beth Bullimore on 12-10-2022 AST [Catalytic activity/Vol] 28 U/L Normal 13-39 [facility] Comment on above: Performed By: #### C MP, CBC #### [address] Automated basophil %Ordered By: Mary Beth Bullimore on 12-10-2022 Basophils/100 WBC (Bld) 0.5 % Normal . F [facility] Comment on above: Performed By: #### C MP, CBC #### [address] Automated basophil countOrde red By: Mary Beth Sebastienimore on 12-10-2022 Basophils (Bld) [#/Vol] 0.1 10*3/uL Normal 0.0-0.2 [facility] Comment on above: Result Comment: PERF ORMED BY: [place] [address] PATHOLOGIST COMPUTER EDUCATION PROFESSOR JASON WILSON M.D. Performed By: #### C MP, CBC #### [facility] [address] Automated blood monocyte cou ntOrdered By: Mary Beth Bullimore on 12-10-2022 Monocytes (Bld) [#/Vol] 0.7 10*3/uL Normal 0.0-0.8 [facility] Comment on above: Performed By: #### C MP, CBC #### [address] Automated eosinophil %Ordere d By: Mary Beth Bullimore on 12-10-2022 Eosinophils/100 WBC (Bld) 1.7 % Normal . [facility] Comment on above: Performed By: #### C MP, CBC #### [address] Automated eosinophil countOr dered By: Mary Beth Bullimore on 12-10-2022 Eosinophils (Bld) [#/Vol] 0.2 10*3/uL Normal 0.0-0.45 [facility] Comment on above: Performed By: #### C MP, CBC #### [address] Automated erythrocytes count in urine sediment (number/area)Ordered By: Deb Carmichael on 12-10-2022 RBC Auto (Urine sed) [#/Area] 10-19 [HPF] 0-4 [facility] Automated leukocytes count i n urine sediment (number/area)Ordered By: Deb Carmichael on 12-10-2022 WBC Auto (Urine sed) [#/Area] 3-4 [HPF] 0-4 [facility] Automated monocyte %Ordered By: Mary Beth Sebastienimore on 12-10-2022 Monocytes/100 WBC (Bld) 6.2 % Normal . [facility] Comment on above: Performed By: #### C MP, CBC #### [address] Automated neutrophil %Ordere d By: Mary Beth Bullimore on 12-10-2022 Neutrophils/100 WBC (Bld) 71.6 % Normal . [facility] Comment on above: Performed By: #### C MP, CBC #### [facility] [address] Automated urine color determ inationOrdered By: Deb Carmichael on 12-10-2022 Color (U) Yellow Normal Yellow [facility] Comment on above: Order Comment: Name Collection Type:: Voided Performed By: #### A DDONUAPLUS #### [facility] [address] Bilirubin Test strip Ql (U)O rdered By: Deb Carmichael on 12-10-2022 Bilirubin Ql (U) Negative Negative [facility] Bilirubin.total [Mass/volume ] in Serum or PlasmaOrdered By: Mary Beth Bullimore on 12-10-2022 Bilirubin [Mass/Vol] 0.3 mg/dL Normal 0.3-1.0 [facility] Comment on above: Performed By: #### C MP, CBC #### [place] [address] [place] Calcium [Mass/volume] in Ser um or PlasmaOrdered By: Mary Beth Bullimore on 12-10-2022 Calcium [Mass/Vol] 8.3 mg/dL Low 8.6-10.3 [facility] Comment on above: Performed By: #### C MP, CBC #### [address] Carbon dioxide, total [Moles /volume] in Serum or PlasmaOrdered By: Mary Beth Bullimore on 12-10-2022 CO2 [Moles/Vol] 22.2 mmol/L Normal 21.0-31.0 [facility] Comment on above: Performed By: #### C MP, CBC #### [facility] [address] [place] [address] [place] Chloride [Moles/volume] in S saw or PlasmaOrdered By: Mary Beth Bullimore on 12-10-2022 Chloride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 José Miguel Mcnamara on 03-19-2022 Monocytes (Bld) [#/Vol] 0.4 10*3/uL 0.0-0.8 [facility] Monocytes/100 WBC Auto (Bld) Ordered By: José Miguel Mcnamara on 03-19-2022 Monocytes/100 WBC (Bld) 11.7 % . [facility] Neutrophils Auto (Bld) [#/Vo l]Ordered By: José Miguel Mcnamara on 03-19-2022 Neutrophils (Bld) [#/Vol] 1.2 10*3/uL 1.8-7.7 [facility] Neutrophils/100 WBC Auto (Bl d)Ordered By: José Miguel Mcnamara on 03-19-2022 Neutrophils/100 WBC (Bld) 38.0 % . [facility] No Panel InformationOrdered By: José Miguel Mcnamara on 03-19-2022 Estimated GFR () > 60 mL/Min [facility] Comment on above: GFR estimated refere nce range: According to KDOQI guidelines, <60 ml/min/1.73m2 is sufficient to diagnose a patient with chronic kidney disease. Pharmacy Creatinine Clearance (Chem 107.22 [facility] Nucleated erythrocytes [Pres ence] in Blood by Automated countOrdered By: José Miguel Mcnamara on 03-19-2022 Nucleated RBC Auto Ql (Bld) 0.3 /100{WBC} 0-0.5 [facility] Platelet mean volume Auto (B ld) [Entitic vol]Ordered By: José Miguel Mcnamara on 03-19-2022 Platelet mean volume (Bld) [Entitic vol] 9.5 fL 6.3-10.7 [facility] Platelet poor plasma interna tional normalized ratio (INR) by coagulation assay (relatOrdered By: José Miguel Mcnamara on 03-19-2022 INR Coag (PPP) [Relative time] 1.1 {INR} [facility] Comment on above: INR Therapeutic Rang e A) Pre- and Peroperative OAT started two weeks before surgery. NOT HIP SURGERY: 1.5 - 2.5 HIP SURGERY: 2 - 3B) Primary and secondary prevention of venous THROMBOSIS: 2 - 3C) Active venous thrombosis, pulmonary embolismand prevention of recurrent venous thrombosis: 2 - 3D) Prevention of arterial thromboembolismincluding patients with mechanical heart valves: 3 - 4.5 Platelets Auto (Bld) [#/Vol] Ordered By: José Miguel Mcnamara on 03-19-2022 Platelets (Bld) [#/Vol] 206 10*3/uL 150-450 [facility] Protein [Mass/volume] in Ser um or PlasmaOrdered By: José Miguel Mcnamara on 03-19-2022 Protein [Mass/Vol] 6.9 g/dL 6.1-7.9 [facility] RBC Auto (Bld) [#/Vol]Ordere d By: José Miguel Mcnamara on 03-19-2022 RBC (Bld) [#/Vol] 4.28 10*6/uL 3.60-5.00 [facility] Serum or plasma alanine cardoso otransferase measurement without P-5'-P (enzymatic activiOrdered By: José Miguel Mcnamara on 03-19-2022 ALT No additional P-5'-P [Catalytic activity/Vol] 86 U/L 10-60 [facility] Serum or plasma albumin/glob ulin mass ratioOrdered By: José Miguel Mcnamara on 03-19-2022 Albumin/Globulin [Mass ratio] 1.1 {ratio} [facility] Serum or plasma alkaline sintia sphatase measurement (enzymatic activity/volume)Ordered By: José Miguel Mcnamara on 03-19-2022 ALP [Catalytic activity/Vol] 65 U/L 32-92 [facility] Serum or plasma anion gap de terminationOrdered By: José Miguel Mcnamara on 03-19-2022 Anion gap [Moles/Vol] 9.9 mmol/L 6.0-15.0 [facility] Serum or plasma aspartate am inotransferase measurement (enzymatic activity/volume)Ordered By: José Miguel Mcnamara on 03-19-2022 AST [Catalytic activity/Vol] 74 U/L 10-42 [facility] Serum or plasma calcium skyla urement (mass/volume)Ordered By: José Miguel Mcnamara on 03-19-2022 Calcium [Mass/Vol] 8.3 mg/dL 8.2-10.2 [facility] Serum or plasma chloride florin surement (moles/volume)Ordered By: José Miguel Mcnamara on 03-19-2022 Chloride [Moles/Vol] 108 mmol/L 95-114 [facility] Serum or plasma glucose skyla urement (mass/volume)Ordered By: José Miguel Mcnamara on 03-19-2022 Glucose [Mass/Vol] 100 mg/dL 70-100 [facility] Comment on above: ADA recommended refe rence rangeRandom Glucose Reference Range is dependent on time and content of last meal. Glucose of more than 200 mg/dL in a nonstressed, ambulatory subject supports the diagnosis of Diabetes Mellitus. Serum or plasma non-glucuron idated bilirubin measurement (mass/volume)Ordered By: José Miguel Mcnamara on 03-19-2022 Bilirubin.indirect [Mass/Vol] 0.4 mg/dL [facility] Serum or plasma potassium me asurement (moles/volume)Ordered By: José Miguel Mcnamara on 03-19-2022 Potassium [Moles/Vol] 3.2 mmol/L 3.5-5.1 [facility] Serum or plasma sodium measu rement (moles/volume)Ordered By: José Miguel Mcnamara on 03-19-2022 Sodium [Moles/Vol] 136 mmol/L 136-146 [facility] Serum or plasma total biliru bin measurement (mass/volume)Ordered By: José Miguel Mcnamara on 03-19-2022 Bilirubin [Mass/Vol] 0.5 mg/dL 0.3-1.2 [facility] Serum or plasma total carbon dioxide measurement (moles/volume)Ordered By: José Miguel Mcnamara on 03-19-2022 CO2 [Moles/Vol] 21.3 mmol/L 22.0-30.0 [facility] Serum or plasma urea nitroge n measurement (mass/volume)Ordered By: José Miguel Mcnamara on 03-19-2022 Urea nitrogen [Mass/Vol] 5 mg/dL 12-15 [facility] WBC Auto (Bld) [#/Vol]Ordere d By: José Miguel Mcnamara on 03-19-2022 WBC (Bld) [#/Vol] 3.2 10*3/uL 3.8-11.6 [facility] Basophils Auto (Bld) [#/Vol] Ordered By: Berto Villasenor on 03-17-2022 Basophils (Bld) [#/Vol] 0.0 10*3/uL 0.0-0.2 [facility] Basophils/100 WBC Auto (Bld) Ordered By: Berto Villasenor on 03-17-2022 Basophils/100 WBC (Bld) 0.6 % . [facility] Body fluid albumin measureme nt (mass/volume)Ordered By: Berto Villasenor on 03-17-2022 Albumin (Body fld) [Mass/Vol] 3.7 g/dL 3.2-5.5 [facility] Creatinine and Glomerular fi ltration rate.predicted panel (S/P/Bld)Ordered By: Berto Villasenor on 03-17-2022 Creatinine [Mass/Vol] 0.80 mg/dL 0.44-1.03 [facility] Direct bilirubin measurement Ordered By: Berto Villasenor on 03-17-2022 Bilirubin.direct [Mass/Vol] 0.2 mg/dL 0.0-0.4 [facility] Eosinophils Auto (Bld) [#/Vo l]Ordered By: Berto Villasenor on 03-17-2022 Eosinophils (Bld) [#/Vol] 0.0 10*3/uL 0.0-0.45 [facility] Eosinophils/100 WBC Auto (Bl d)Ordered By: Berto Villasenor on 03-17-2022 Eosinophils/100 WBC (Bld) 0.5 % . [facility] Erythrocyte distribution wid th Auto (RBC) [Ratio]Ordered By: Berto Villasenor on 03-17-2022 Erythrocyte distribution width (RBC) [Ratio] 13.3 % 11.9-15.3 [facility] Estimated glomerular filtrat ion rate (GFR) non- AmericanOrdered By: Berto Villasenor on 03-17-2022 GFR/1.73 sq M.predicted among non-blacks MDRD (S/P/Bld) [Vol rate/Area] > 60 mL/Min [facility] Globulin Calc (S) [Mass/Vol] Ordered By: Berto Villasenor on 03-17-2022 Globulin (S) [Mass/Vol] 3.1 g/dL [facility] Hematocrit Auto (Bld) [Volum e fraction]Ordered By: Berto Villasenor on 03-17-2022 Hematocrit (Bld) [Volume fraction] 40.8 % 34.0-46.4 [facility] Hemoglobin [Mass/volume] in BloodOrdered By: Berto Villasenor on 03-17-2022 Hemoglobin (Bld) [Mass/Vol] 13.8 g/dL 11.8-15.4 [facility] Leukocytes [#/volume] correc lisa for nucleated erythrocytes in Blood by Automated counOrdered By: Berto Villasenor on 03-17-2022 WBC corrected for nucl RBC Auto (Bld) [#/Vol] 5.2 10*3/uL 3.8-11.6 [facility] Lymphocytes Auto (Bld) [#/Vo l]Ordered By: Berto Villasenor on 03-17-2022 Lymphocytes (Bld) [#/Vol] 1.8 10*3/uL 1.00-4.8 [facility] Lymphocytes/100 WBC Auto (Bl d)Ordered By: Berto Villasenor on 03-17-2022 Lymphocytes/100 WBC (Bld) 34.2 % . [facility] MCH Auto (RBC) [Entitic mass ]Ordered By: Berto Villasenor on 03-17-2022 MCH (RBC) [Entitic mass] 31.8 pg 24.7-34.3 [facility] MCHC Auto (RBC) [Mass/Vol]Or dered By: Berto Villasenor on 03-17-2022 MCHC (RBC) [Mass/Vol] 33.7 g/dL 32.0-35.[address] [facility] MCV Auto (RBC) [Entitic vol] Ordered By: Berto Villasenor on 03-17-2022 MCV (RBC) [Entitic vol] 94.2 fL 80-100 [facility] Monocyte distribution width [Entitic volume] in Blood by AutomatedOrdered By: Berto Villasenor on 03-17-2022 Monocyte distribution width Auto (Bld) [Entitic vol] 20.70 % 0.00-20.00 [facility] Comment on above: For adults in ED, MD W > 20.0 may be associated with a higher risk of sepsis during the first 12 hrs of hospital admission Monocytes Auto (Bld) [#/Vol] Ordered By: Berto Villasenor on 03-17-2022 Monocytes (Bld) [#/Vol] 0.5 10*3/uL 0.0-0.8 [facility] Monocytes/100 WBC Auto (Bld) Ordered By: Berto Villasenor on 03-17-2022 Monocytes/100 WBC (Bld) 9.1 % . [facility] Neutrophils Auto (Bld) [#/Vo l]Ordered By: Berto Villasenor on 03-17-2022 Neutrophils (Bld) [#/Vol] 2.9 10*3/uL 1.8-7.7 [facility] Neutrophils/100 WBC Auto (Bl d)Ordered By: Berto Villasenor on 03-17-2022 Neutrophils/100 WBC (Bld) 55.6 % . [facility] No Panel InformationOrdered By: Berto Villasenor on 03-17-2022 Estimated GFR () > 60 mL/Min [facility] Comment on above: GFR estimated refere nce range: According to KDOQI guidelines, <60 ml/min/1.73m2 is sufficient to diagnose a patient with chronic kidney disease. Pharmacy Creatinine Clearance (Chem 106.22 [facility] Nucleated erythrocytes [Pres ence] in Blood by Automated countOrdered By: Berto Villasenor on 03-17-2022 Nucleated RBC Auto Ql (Bld) 0.6 /100{WBC} 0-0.5 [facility] Platelet mean volume Auto (B ld) [Entitic vol]Ordered By: Berto Villasenor on 03-17-2022 Platelet mean volume (Bld) [Entitic vol] 9.0 fL 6.3-10.7 [facility] Platelets Auto (Bld) [#/Vol] Ordered By: Berto Villasenor on 12-24-2022 Platelets (Bld) [#/Vol] 225 10*3/uL 150-450 [facility] Protein [Mass/volume] in Ser um or PlasmaOrdered By: Berto Villasenor on 03-17-2022 Protein [Mass/Vol] 6.8 g/dL 6.1-7.9 [facility] RBC Auto (Bld) [#/Vol]Ordere d By: Berto Villasenor on 03-17-2022 RBC (Bld) [#/Vol] 4.33 10*6/uL 3.60-5.00 [facility] Serum or plasma alanine cardoso otransferase measurement without P-5'-P (enzymatic activiOrdered By: Berto Villasenor on 03-17-2022 ALT No additional P-5'-P [Catalytic activity/Vol] 87 U/L 1060 [facility] Serum or plasma albumin/glob ulin mass ratioOrdered By: Berto Villasenor on 03-17-2022 Albumin/Globulin [Mass ratio] 1.2 {ratio} [facility] Serum or plasma alkaline sintia sphatase measurement (enzymatic activity/volume)Ordered By: Berto Villasenor on 03-17-2022 ALP [Catalytic activity/Vol] 71 U/L 32-92 [facility] Serum or plasma anion gap de terminationOrdered By: Berto Villasenor on 03-17-2022 Anion gap [Moles/Vol] 12.6 mmol/L 6.0-15.0 [facility] Serum or plasma aspartate am inotransferase measurement (enzymatic activity/volume)Ordered By: Berto Villasenor on 03-17-2022 AST [Catalytic activity/Vol] 71 U/L 10-42 [facility] Serum or plasma calcium skyla urement (mass/volume)Ordered By: Berto Villasenor on 03-17-2022 Calcium [Mass/Vol] 8.5 mg/dL 8.2-10.2 [facility] Serum or plasma chloride florin surement (moles/volume)Ordered By: Berto Villasenor on 03-17-2022 Chloride [Moles/Vol] 110 mmol/L 95-114 [facility] Serum or plasma glucose skyla urement (mass/volume)Ordered By: Berto Villasenor on 03-17-2022 Glucose [Mass/Vol] 98 mg/dL 70-100 [facility] Comment on above: ADA recommended refe rence rangeRandom Glucose Reference Range is dependent on time and content of last meal. Glucose of more than 200 mg/dL in a nonstressed, ambulatory subject supports the diagnosis of Diabetes Mellitus. Serum or plasma non-glucuron idated bilirubin measurement (mass/volume)Ordered By: Berto Villasenor on 03-17-2022 Bilirubin.indirect [Mass/Vol] 0.4 mg/dL [facility] Serum or plasma potassium me asurement (moles/volume)Ordered By: Berto Villasenor on 03-17-2022 Potassium [Moles/Vol] 4.1 mmol/L 3.5-5.1 [facility] Serum or plasma sodium measu rement (moles/volume)Ordered By: Berto Villasenor on 03-17-2022 Sodium [Moles/Vol] 138 mmol/L 136-146 [facility] Serum or plasma total biliru bin measurement (mass/volume)Ordered By: Berto Villasenor on 03-17-2022 Bilirubin [Mass/Vol] 0.6 mg/dL 0.3-1.2 [facility] Serum or plasma total carbon dioxide measurement (moles/volume)Ordered By: Berto Villasenor on 03-17-2022 CO2 [Moles/Vol] 19.5 mmol/L 22.0-30.0 [facility] Serum or plasma urea nitroge n measurement (mass/volume)Ordered By: Berto Villasenor on 03-17-2022 Urea nitrogen [Mass/Vol] 9 mg/dL 12-15 [facility] WBC Auto (Bld) [#/Vol]Ordere d By: Berto Villasenor on 03-17-2022 WBC (Bld) [#/Vol] 5.2 10*3/uL 3.8-11.6 [facility] Activated partial thrombopla stin time (aPTT) in platelet poor plasma by coagulation aOrdered By: Cameron Rene on 03-14-2022 aPTT Coag (PPP) [Time] 22.4 s 25.1-36.5 [facility] Albumin [Mass/volume] in Ser um or PlasmaOrdered By: Cameron Rene on 03-14-2022 Albumin [Mass/Vol] 3.7 g/dL 3.2-5.5 [facility] Automated erythrocytes count in urine sediment (number/area)Ordered By: Cameron Rene on 03-14-2022 RBC Auto (Urine sed) [#/Area] 0-1 [HPF] 0-4 [facility] Automated leukocytes count i n urine sediment (number/area)Ordered By: Cameron Rene on 03-14-2022 WBC Auto (Urine sed) [#/Area] 0-1 [HPF] 0-4 [facility] Basophils Auto (Bld) [#/Vol] Ordered By: Cameron Rene on 03-14-2022 Basophils (Bld) [#/Vol] 0.0 10*3/uL 0.0-0.2 [facility] Basophils/100 WBC Auto (Bld) Ordered By: Cameron Rene on 03-14-2022 Basophils/100 WBC (Bld) 0.2 % . [facility] Bilirubin Test strip Ql (U)O rdered By: Cameron Rene on 03-14-2022 Bilirubin Ql (U) Negative Negative [facility] Color Auto (U)Ordered By: Bo Rene on 03-14-2022 Color (U) Dark yellow Yellow [facility] Creatinine and Glomerular fi ltration rate.predicted panel (S/P/Bld)Ordered By: Cameron Rene on 03-14-2022 Creatinine [Mass/Vol] 0.86 mg/dL 0.44-1.03 [facility] Eosinophils Auto (Bld) [#/Vo l]Ordered By: Cameron Rene on 03-14-2022 Eosinophils (Bld) [#/Vol] 0.1 10*3/uL 0.0-0.45 [facility] Eosinophils/100 WBC Auto (Bl d)Ordered By: Cameron Rene on 03-14-2022 Eosinophils/100 WBC (Bld) 1.2 % . [facility] Erythrocyte distribution wid th Auto (RBC) [Ratio]Ordered By: Cameron Rene on 03-14-2022 Erythrocyte distribution width (RBC) [Ratio] 13.3 % 11.9-15.3 [facility] Estimated glomerular filtrat ion rate (GFR) non- AmericanOrdered By: Cameron Rene on 03-14-2022 GFR/1.73 sq M.predicted among non-blacks MDRD (S/P/Bld) [Vol rate/Area] > 60 mL/Min [facility] Fecal occult blood detection by immunochemistryOrdered By: Cameron Rene on 03-14-2022 Hemoglobin.gastrointest inal Ql (Stl) [facility] Globulin Calc (S) [Mass/Vol] Ordered By: Cameron Rene on 03-14-2022 Globulin (S) [Mass/Vol] 3.8 g/dL [facility] Hematocrit Auto (Bld) [Volum e fraction]Ordered By: Cameron Rene on 03-14-2022 Hematocrit (Bld) [Volume fraction] 43.7 % 34.0-46.4 [facility] Hemoglobin [Mass/volume] in BloodOrdered By: Cameron Rene on 03-14-2022 Hemoglobin (Bld) [Mass/Vol] 14.6 g/dL 11.8-15.4 [facility] Ketones Auto test strip (U) [Mass/Vol]Ordered By: Cameron Rene on 03-14-2022 Ketones (U) [Mass/Vol] Trace Negative [facility] Laboratory - CoagulationOrde red By: Cameron Rene on 03-14-2022 PT Coag (PPP) [Time] 12.4 s 9.0-12.9 [facility] Laboratory - UrinalysisOrder ed By: Cameron Rene on 03-14-2022 Hyaline casts LM Ql (Urine sed) 0-8 [LPF] 0-8 [facility] Leukocytes [#/volume] correc lisa for nucleated erythrocytes in Blood by Automated counOrdered By: Cameron Rene on 03-14-2022 WBC corrected for nucl RBC Auto (Bld) [#/Vol] 6.8 10*3/uL 3.8-11.6 [facility] Lymphocytes Auto (Bld) [#/Vo l]Ordered By: Cameron Rene on 03-14-2022 Lymphocytes (Bld) [#/Vol] 2.2 10*3/uL 1.00-4.8 [facility] Lymphocytes/100 WBC Auto (Bl d)Ordered By: Cameron Rene on 03-14-2022 Lymphocytes/100 WBC (Bld) 32.9 % . [facility] MCH Auto (RBC) [Entitic mass ]Ordered By: Cameron Rene on 03-14-2022 MCH (RBC) [Entitic mass] 31.2 pg 24.7-34.3 [facility] MCHC Auto (RBC) [Mass/Vol]Or dered By: Cameron Rene on 03-14-2022 MCHC (RBC) [Mass/Vol] 33.3 g/dL 32.0-35.[address] [facility] MCV Auto (RBC) [Entitic vol] Ordered By: Cameron Rene on 03-14-2022 MCV (RBC) [Entitic vol] 93.7 fL 80-100 [facility] Monocyte distribution width [Entitic volume] in Blood by AutomatedOrdered By: Cameron Rene on 03-14-2022 Monocyte distribution width Auto (Bld) [Entitic vol] 18.75 % 0.00-20.00 [facility] Monocytes Auto (Bld) [#/Vol] Ordered By: Cameron Rene on 03-14-2022 Monocytes (Bld) [#/Vol] 0.4 10*3/uL 0.0-0.8 [facility] Monocytes/100 WBC Auto (Bld) Ordered By: Cameron Rene on 03-14-2022 Monocytes/100 WBC (Bld) 6.1 % . [facility] Neutrophils Auto (Bld) [#/Vo l]Ordered By: Cameron Rene on 03-14-2022 Neutrophils (Bld) [#/Vol] 4.0 10*3/uL 1.8-7.7 [facility] Neutrophils/100 WBC Auto (Bl d)Ordered By: Cameron Rene on 03-14-2022 Neutrophils/100 WBC (Bld) 59.6 % . [facility] Nitrite Test strip Ql (U)Ord ered By: Cameorn Rene on 03-14-2022 Nitrite Ql (U) Negative Negative [facility] No Panel InformationOrdered By: Cameron Rene on 03-14-2022 Estimated GFR () > 60 mL/Min [facility] Comment on above: GFR estimated refere nce range: According to KDOQI guidelines, <60 ml/min/1.73m2 is sufficient to diagnose a patient with chronic kidney disease. Pharmacy Creatinine Clearance (Chem 98.52 [facility] Nucleated erythrocytes [Pres ence] in Blood by Automated countOrdered By: Cameron Rene on 03-14-2022 Nucleated RBC Auto Ql (Bld) 0.1 /100{WBC} 0-0.5 [facility] Platelet mean volume Auto (B ld) [Entitic vol]Ordered By: Cameron Rene on 03-14-2022 Platelet mean volume (Bld) [Entitic vol] 9.1 fL 6.3-10.7 [facility] Platelet poor plasma interna tional normalized ratio (INR) by coagulation assay (relatOrdered By: Cameron Rene on 03-14-2022 INR Coag (PPP) [Relative time] 1.1 {INR} [facility] Comment on above: INR Therapeutic Rang e A) Pre- and Peroperative OAT started two weeks before surgery. NOT HIP SURGERY: 1.5 - 2.5 HIP SURGERY: 2 - 3B) Primary and secondary prevention of venous THROMBOSIS: 2 - 3C) Active venous thrombosis, pulmonary embolismand prevention of recurrent venous thrombosis: 2 - 3D) Prevention of arterial thromboembolismincluding patients with mechanical heart valves: 3 - 4.5 Platelets Auto (Bld) [#/Vol] Ordered By: Cameron Rene on 03-14-2022 Platelets (Bld) [#/Vol] 279 10*3/uL 150-450 [facility] Protein Auto test strip (U) [Mass/Vol]Ordered By: Cameron Rene on 03-14-2022 Protein (U) [Mass/Vol] Trace mg/dL Negative [facility] Protein [Mass/volume] in Ser um or PlasmaOrdered By: Cameron Rene on 03-14-2022 Protein [Mass/Vol] 7.5 g/dL 6.1-7.9 [facility] RBC Auto (Bld) [#/Vol]Ordere d By: Cameron Rene on 03-14-2022 RBC (Bld) [#/Vol] 4.66 10*6/uL 3.60-5.00 [facility] Serum or plasma alanine cardoso otransferase measurement without P-5'-P (enzymatic activiOrdered By: Cameron Rene on 03-14-2022 ALT No additional P-5'-P [Catalytic activity/Vol] 86 U/L 10-60 [facility] Serum or plasma albumin/glob ulin mass ratioOrdered By: Cameron Rene on 03-14-2022 Albumin/Globulin [Mass ratio] 1.0 {ratio} [facility] Serum or plasma alkaline sintia sphatase measurement (enzymatic activity/volume)Ordered By: Cameron Rene on 03-14-2022 ALP [Catalytic activity/Vol] 69 U/L 32-92 [facility] Serum or plasma anion gap de terminationOrdered By: Cameron Rene on 03-14-2022 Anion gap [Moles/Vol] 11.6 mmol/L 6.0-15.0 [facility] Serum or plasma aspartate am inotransferase measurement (enzymatic activity/volume)Ordered By: Cameron Rene on 03-14-2022 AST [Catalytic activity/Vol] 70 U/L 10-42 [facility] Serum or plasma calcium skyla urement (mass/volume)Ordered By: Cameron Rene on 03-14-2022 Calcium [Mass/Vol] 8.3 mg/dL 8.2-10.2 [facility] Serum or plasma chloride florin surement (moles/volume)Ordered By: Cameron Rene on 03-14-2022 Chloride [Moles/Vol] 108 mmol/L 95-114 [facility] Serum or plasma glucose skyla urement (mass/volume)Ordered By: Cameron Rene on 03-14-2022 Glucose [Mass/Vol] 105 mg/dL 70-100 [facility] Comment on above: ADA recommended refe rence rangeRandom Glucose Reference Range is dependent on time and content of last meal. Glucose of more than 200 mg/dL in a nonstressed, ambulatory subject supports the diagnosis of Diabetes Mellitus. Serum or plasma potassium me asurement (moles/volume)Ordered By: Cameron Rene on 03-14-2022 Potassium [Moles/Vol] 3.9 mmol/L 3.5-5.1 [facility] Serum or plasma sodium measu rement (moles/volume)Ordered By: Cameron Rene on 03-14-2022 Sodium [Moles/Vol] 135 mmol/L 136-146 [facility] Serum or plasma total biliru bin measurement (mass/volume)Ordered By: Cameron Rene on 03-14-2022 Bilirubin [Mass/Vol] 0.7 mg/dL 0.3-1.2 [facility] Serum or plasma total carbon dioxide measurement (moles/volume)Ordered By: Cameron Rene on 03-14-2022 CO2 [Moles/Vol] 19.3 mmol/L 22.0-30.0 [facility] Serum or plasma urea nitroge n measurement (mass/volume)Ordered By: Cameron Rene on 03-14-2022 Urea nitrogen [Mass/Vol] 11 mg/dL 9-23 [facility] Specific gravity Auto test s trip (U) [Rel density]Ordered By: Cameron Rene on 03-14-2022 Specific gravity (U) [Rel density] 1.030 1.001-1.030 [facility] Squamous epithelial cells de tection in urine sediment by light microscopyOrdered By: Cameron Rene on 03-14-2022 Epithelial cells.squamous LM Ql (Urine sed) 3-4 [HPF] 0-2 [facility] Urine bacteria detection by automated methodOrdered By: Cameron Rene on 03-14-2022 Bacteria Auto Ql (U) None seen None Seen [facility] Urine clarity by refractomet ry automatedOrdered By: Cameron Rene on 03-14-2022 Clarity Refractometry automated (U) Clear Clear [facility] Urine glucose measurement by automated test strip (mass/volume)Ordered By: Cameron Rene on 03-14-2022 Glucose Auto test strip (U) [Mass/Vol] Normal mg/dL Normal [facility] Urine hemoglobin detection b y automated test stripOrdered By: Cameron Rene on 03-14-2022 Hemoglobin Auto test strip Ql (U) Negative Negative [facility] Urine lactic acid measuremen tOrdered By: Cameron Rene on 03-14-2022 Lactate (U) [Moles/Vol] 1.0 mmol/L 0.5-2.2 [facility] Urine leukocyte esterase det ection by automated test stripOrdered By: Cameron Rene on 03-14-2022 Leukocyte esterase Auto test strip Ql (U) Negative Negative [facility] Urobilinogen Auto test strip (U) [Mass/Vol]Ordered By: Cameron Rene on 03-14-2022 Urobilinogen (U) [Mass/Vol] Normal mg/dL Normal [facility] WBC Auto (Bld) [#/Vol]Ordere d By: Cameron Rene on 03-14-2022 WBC (Bld) [#/Vol] 6.8 10*3/uL 3.8-11.6 [facility] pH Auto test strip (U)Ordere d By: Cameron Rene on 03-14-2022 pH (U) 6.5 [pH] 5.0-9.0 [facility] Urine culture routineOrdered By: Dalton Ceja on 02-05-2022 Bacteria identified Cx Nom (U) Escherichia coli [facility] Automated erythrocytes count in urine sediment (number/area)Ordered By: Dalton Ceja on 02-03-2022 RBC Auto (Urine sed) [#/Area] 0-1 [HPF] 0-4 [facility] Automated leukocytes count i n urine sediment (number/area)Ordered By: Dalton Ceja on 02-03-2022 WBC Auto (Urine sed) [#/Area] Innumerable [HPF] 0-4 [facility] Automated urine hyaline cast s count (number/volume)Ordered By: Dalton Ceja on 02-03-2022 Hyaline casts Auto (U) [#/Vol] None seen [LPF] 0-1 [facility] Basophils Auto (Bld) [#/Vol] Ordered By: Dalton Ceja on 02-03-2022 Basophils (Bld) [#/Vol] 0.0 10*3/uL 0.0-0.2 [facility] Basophils/100 WBC Auto (Bld) Ordered By: Dalton Ceja on 02-03-2022 Basophils/100 WBC (Bld) 0.5 % . [facility] Bilirubin Test strip Ql (U)O rdered By: Dalton Ceja on 02-03-2022 Bilirubin Ql (U) Negative Negative [facility] Body fluid albumin measureme nt (mass/volume)Ordered By: Dalton Ceja on 02-03-2022 Albumin (Body fld) [Mass/Vol] 3.7 g/dL 3.2-5.5 [facility] Casts typing in urine sedime nt by light microscopyOrdered By: Dalton Cjea on 02-03-2022 Casts LM Nom (Urine sed) None seen [LPF] None Seen [facility] Color Auto (U)Ordered By: Susan Ceja on 02-03-2022 Color (U) Yellow Yellow [facility] Creatinine and Glomerular fi ltration rate.predicted panel (S/P/Bld)Ordered By: Dalton Ceja on 02-03-2022 Creatinine [Mass/Vol] 0.78 mg/dL 0.44-1.03 [facility] Direct bilirubin measurement Ordered By: Dalton Ceja on 02-03-2022 Bilirubin.direct [Mass/Vol] 0.1 mg/dL 0.0-0.4 [facility] Eosinophils Auto (Bld) [#/Vo l]Ordered By: Dalton Ceaj on 02-03-2022 Eosinophils (Bld) [#/Vol] 0.1 10*3/uL 0.0-0.45 [facility] Eosinophils/100 WBC Auto (Bl d)Ordered By: Dalton Ceja on 02-03-2022 Eosinophils/100 WBC (Bld) 1.7 % . [facility] Erythrocyte distribution wid th Auto (RBC) [Ratio]Ordered By: Dalton Ceja on 02-03-2022 Erythrocyte distribution width (RBC) [Ratio] 13.4 % 11.9-15.3 [facility] Estimated glomerular filtrat ion rate (GFR) non- AmericanOrdered By: Dalton Ceja on 02-03-2022 GFR/1.73 sq M.predicted among non-blacks MDRD (S/P/Bld) [Vol rate/Area] > 60 mL/Min [facility] Globulin Calc (S) [Mass/Vol] Ordered By: Dalton Ceja on 02-03-2022 Globulin (S) [Mass/Vol] 3.4 g/dL [facility] HCG ( test) IA.rapi d Ql (U)Ordered By: Dalton Ceja on 02-03-2022 HCG ( test) Ql (U) Negative [facility] Hematocrit Auto (Bld) [Volum e fraction]Ordered By: Dalton Ceja on 02-03-2022 Hematocrit (Bld) [Volume fraction] 43.8 % 34.0-46.4 [facility] Hemoglobin [Mass/volume] in BloodOrdered By: Dalton Ceja on 02-03-2022 Hemoglobin (Bld) [Mass/Vol] 14.5 g/dL 11.8-15.4 [facility] Ketones Auto test strip (U) [Mass/Vol]Ordered By: Dalton Ceja on 02-03-2022 Ketones (U) [Mass/Vol] Negative Negative [facility] Laboratory - Chemistry and C hemistry - challengeOrdered By: Dalton Ceja on 02-03-2022 Lipase [Catalytic activity/Vol] 30.0 U/L 22-51 [facility] Laboratory - CoagulationOrde red By: Dalton Ceja on 02-03-2022 PT Coag (PPP) [Time] 11.9 s 9.0-12.9 [facility] Laboratory - Hematology and Cell countsOrdered By: Dalton Ceja on 02-03-2022 Nucleated RBC/100 WBC (Bld) [Ratio] 0.1 % 0-0.5 [facility] Leukocytes [#/volume] in Blo od by Automated countOrdered By: Dalton Ceja on 02-03-2022 WBC (Bld) [#/Vol] 8.6 10*3/uL 4.5-11.0 [facility] Lymphocytes Auto (Bld) [#/Vo l]Ordered By: Dalton Ceja on 02-03-2022 Lymphocytes (Bld) [#/Vol] 2.6 10*3/uL 1.00-4.8 [facility] Lymphocytes/100 WBC Auto (Bl d)Ordered By: Dalton Ceja on 02-03-2022 Lymphocytes/100 WBC (Bld) 30.4 % . [facility] MCH Auto (RBC) [Entitic mass ]Ordered By: Dalton Ceja on 02-03-2022 MCH (RBC) [Entitic mass] 31.4 pg 24.7-34.3 [facility] MCHC Auto (RBC) [Mass/Vol]Or dered By: Dalton Ceja on 02-03-2022 MCHC (RBC) [Mass/Vol] 33.1 g/dL 32.0-35.[address] [facility] MCV Auto (RBC) [Entitic vol] Ordered By: Dalton Ceja on 02-03-2022 MCV (RBC) [Entitic vol] 94.9 fL 80-100 [facility] Monocytes Auto (Bld) [#/Vol] Ordered By: Dalton Ceja on 02-03-2022 Monocytes (Bld) [#/Vol] 0.6 10*3/uL 0.0-0.8 [facility] Monocytes/100 WBC Auto (Bld) Ordered By: Dalton Ceja on 02-03-2022 Monocytes/100 WBC (Bld) 7.4 % . [facility] Neutrophils Auto (Bld) [#/Vo l]Ordered By: Dalton Ceja on 02-03-2022 Neutrophils (Bld) [#/Vol] 5.1 10*3/uL 1.8-7.7 [facility] Neutrophils/100 WBC Auto (Bl d)Ordered By: Dalton Ceja on 02-03-2022 Neutrophils/100 WBC (Bld) 60.0 % . [facility] Nitrite Test strip Ql (U)Ord ered By: Dalton Ceja on 02-03-2022 Nitrite Ql (U) Positive Negative [facility] No Panel InformationOrdered By: Dalton Ceja on 02-03-2022 Estimated GFR () > 60 mL/Min [facility] Comment on above: GFR estimated refere nce range: According to KDOQI guidelines, <60 ml/min/1.73m2 is sufficient to diagnose a patient with chronic kidney disease. Pharmacy Creatinine Clearance (Chem 111.62 [facility] Platelet mean volume Auto (B ld) [Entitic vol]Ordered By: Dalton Ceja on 02-03-2022 Platelet mean volume (Bld) [Entitic vol] 9.6 fL 6.3-10.7 [facility] Platelet poor plasma interna tional normalized ratio (INR) by coagulation assay (relatOrdered By: Dalton Ceja on 02-03-2022 INR Coag (PPP) [Relative time] 1.1 {INR} [facility] Comment on above: INR Therapeutic Rang e A) Pre- and Peroperative OAT started two weeks before surgery. NOT HIP SURGERY: 1.5 - 2.5 HIP SURGERY: 2 - 3B) Primary and secondary prevention of venous THROMBOSIS: 2 - 3C) Active venous thrombosis, pulmonary embolismand prevention of recurrent venous thrombosis: 2 - 3D) Prevention of arterial thromboembolismincluding patients with mechanical heart valves: 3 - 4.5 Platelets Auto (Bld) [#/Vol] Ordered By: Dalton Ceja on 02-03-2022 Platelets (Bld) [#/Vol] 269 10*3/uL 150-450 [facility] Protein Auto test strip (U) [Mass/Vol]Ordered By: Dalton Ceja on 02-03-2022 Protein (U) [Mass/Vol] 100 mg/dL Negative [facility] Protein [Mass/volume] in Ser um or PlasmaOrdered By: Dalton Ceja on 02-03-2022 Protein [Mass/Vol] 7.1 g/dL 6.1-7.9 [facility] RBC Auto (Bld) [#/Vol]Ordere d By: Dalton Ceja on 02-03-2022 RBC (Bld) [#/Vol] 4.62 10*6/uL 3.60-5.00 [facility] Serum or plasma alanine cardoso otransferase measurement without P-5'-P (enzymatic activiOrdered By: Dalton Ceja on 02-03-2022 ALT No additional P-5'-P [Catalytic activity/Vol] 74 U/L 10-60 [facility] Serum or plasma albumin/glob ulin mass ratioOrdered By: Dalton Ceja on 02-03-2022 Albumin/Globulin [Mass ratio] 1.1 {ratio} [facility] Serum or plasma alkaline sintia sphatase measurement (enzymatic activity/volume)Ordered By: Dalton Ceja on 02-03-2022 ALP [Catalytic activity/Vol] 78 U/L 32-92 [facility] Serum or plasma anion gap de terminationOrdered By: Dalton Ceja on 02-03-2022 Anion gap [Moles/Vol] 14.0 mmol/L 6.0-15.0 [facility] Serum or plasma aspartate am inotransferase measurement (enzymatic activity/volume)Ordered By: Dalton Ceja on 02-03-2022 AST [Catalytic activity/Vol] 54 U/L 10-42 [facility] Serum or plasma calcium skyla urement (mass/volume)Ordered By: Dalton Ceja on 02-03-2022 Calcium [Mass/Vol] 8.9 mg/dL 8.2-10.2 [facility] Serum or plasma chloride florin surement (moles/volume)Ordered By: Dalton Ceja on 02-03-2022 Chloride [Moles/Vol] 109 mmol/L 95-114 [facility] Serum or plasma glucose skyla urement (mass/volume)Ordered By: Dalton Ceja on 02-03-2022 Glucose [Mass/Vol] 107 mg/dL 70-100 [facility] Comment on above: ADA recommended refe rence rangeRandom Glucose Reference Range is dependent on time and content of last meal. Glucose of more than 200 mg/dL in a nonstressed, ambulatory subject supports the diagnosis of Diabetes Mellitus. Serum or plasma non-glucuron idated bilirubin measurement (mass/volume)Ordered By: Dalton Ceja on 02-03-2022 Bilirubin.indirect [Mass/Vol] 0.3 mg/dL [facility] Serum or plasma potassium me asurement (moles/volume)Ordered By: Dalton Ceja on 02-03-2022 Potassium [Moles/Vol] 3.6 mmol/L 3.5-5.1 [facility] Serum or plasma sodium measu rement (moles/volume)Ordered By: Dalton Ceja on 02-03-2022 Sodium [Moles/Vol] 137 mmol/L 136-146 [facility] Serum or plasma total biliru bin measurement (mass/volume)Ordered By: Dalton Ceja on 02-03-2022 Bilirubin [Mass/Vol] 0.4 mg/dL 0.3-1.2 [facility] Serum or plasma total carbon dioxide measurement (moles/volume)Ordered By: Dalton Ceja on 02-03-2022 CO2 [Moles/Vol] 17.6 mmol/L 22.0-30.0 [facility] Serum or plasma urea nitroge n measurement (mass/volume)Ordered By: Dalton Ceja on 02-03-2022 Urea nitrogen [Mass/Vol] 15 mg/dL 9- [facility] Specific gravity Auto test s trip (U) [Rel density]Ordered By: Dalton Ceja on 02-03-2022 Specific gravity (U) [Rel density] 1.020 1.001-1.030 [facility] Squamous epithelial cells de tection in urine sediment by light microscopyOrdered By: Dalton Ceja on 02-03-2022 Epithelial cells.squamous LM Ql (Urine sed) 3-4 [HPF] 0-2 [facility] Urine bacteria detection by automated methodOrdered By: Dalton Ceja on 02-03-2022 Bacteria Auto Ql (U) 4+ None Seen [facility] Urine clarity by refractomet ry automatedOrdered By: Dalton Ceja on 02-03-2022 Clarity Refractometry automated (U) Cloudy Clear [facility] Urine culture routineOrdered By: Dalton Ceja on 02-03-2022 Bacteria identified Cx Nom (U) Escherichia coli [facility] Urine glucose measurement by automated test strip (mass/volume)Ordered By: Dalton Ceja on 02-03-2022 Glucose Auto test strip (U) [Mass/Vol] Normal mg/dL Normal [facility] Urine hemoglobin detection b y automated test stripOrdered By: Dalton Ceja on 02-03-2022 Hemoglobin Auto test strip Ql (U) 3+ Negative [facility] Urine leukocyte esterase det ection by automated test stripOrdered By: Dalton Ceja on 02-03-2022 Leukocyte esterase Auto test strip Ql (U) 4+ Negative [facility] Urobilinogen Auto test strip (U) [Mass/Vol]Ordered By: Dalton Ceja on 02-03-2022 Urobilinogen (U) [Mass/Vol] Normal mg/dL Normal [facility] pH Auto test strip (U)Ordere d By: Dalton Ceja on 02-03-2022 pH (U) 7.0 [pH] 5.0-9.0 [facility] Activated partial thrombopla stin time (aPTT) in platelet poor plasma by coagulation aOrdered By: Berto Villasenor on 11-13-2021 aPTT Coag (PPP) [Time] 31.1 s 25.1-36.5 [facility] Albumin [Mass/volume] in Ser um or PlasmaOrdered By: Berto Villasenor on 11-13-2021 Albumin [Mass/Vol] 3.5 g/dL 3.2-5.5 [facility] Basophils Auto (Bld) [#/Vol] Ordered By: Berto Villasenor on 11-13-2021 Basophils (Bld) [#/Vol] 0.0 10*3/uL 0.0-0.2 [facility] Basophils/100 WBC Auto (Bld) Ordered By: Berto Villasenor on 11-13-2021 Basophils/100 WBC (Bld) 0.5 % . [facility] Blood hemoglobin measurement (mass/volume)Ordered By: Berto Villasenor on 11-13-2021 Hemoglobin (Bld) [Mass/Vol] 14.8 g/dL 11.8-15.4 [facility] Blood leukocytes automated c ount (number/volume)Ordered By: Berto Villasenor on 11-13-2021 WBC (Bld) [#/Vol] 7.8 10*3/uL 4.5-11.0 [facility] Creatinine and Glomerular fi ltration rate.predicted panel (S/P/Bld)Ordered By: Berto Villasenor on 11-13-2021 Creatinine [Mass/Vol] 0.92 mg/dL 0.44-1.03 [facility] Direct bilirubin measurement Ordered By: Berto Villasenor on 11-13-2021 Bilirubin.direct [Mass/Vol] mg/dL 0.0-0.4 [facility] Eosinophils Auto (Bld) [#/Vo l]Ordered By: Berto Villasenor on 11-13-2021 Eosinophils (Bld) [#/Vol] 0.2 10*3/uL 0.0-0.45 [facility] Eosinophils/100 WBC Auto (Bl d)Ordered By: Berto Villasenor on 11-13-2021 Eosinophils/100 WBC (Bld) 2.5 % . [facility] Erythrocyte distribution wid th Auto (RBC) [Ratio]Ordered By: Berto Villasenor on 11-13-2021 Erythrocyte distribution width (RBC) [Ratio] 13.6 % 11.9-15.3 [facility] Estimated glomerular filtrat ion rate (GFR) non- AmericanOrdered By: Berto Villasenor on 11-13-2021 GFR/1.73 sq M.predicted among non-blacks MDRD (S/P/Bld) [Vol rate/Area] > 60 mL/Min [facility] Globulin Calc (S) [Mass/Vol] Ordered By: Berto Villasenor on 11-13-2021 Globulin (S) [Mass/Vol] 3.6 g/dL [facility] Hematocrit Auto (Bld) [Volum e fraction]Ordered By: Berto Villasenor on 11-13-2021 Hematocrit (Bld) [Volume fraction] 45.1 % 34.0-46.4 [facility] Laboratory - Chemistry and C hemistry - challengeOrdered By: Berto Villasenor on 11-13-2021 Lipase [Catalytic activity/Vol] 33.0 U/L 51 [facility] Laboratory - CoagulationOrde red By: Berto Villasenor on 11-13-2021 PT Coag (PPP) [Time] 11.7 s 9.0-12.9 [facility] Laboratory - Hematology and Cell countsOrdered By: Berto Villasenor on 11-13-2021 Nucleated RBC/100 WBC (Bld) [Ratio] 0.1 % 0-0.5 [facility] Lactate dehydrogenase measur ement (enzymatic activity/volume)Ordered By: Berto Villasenor on 11-13-2021 LDH (Unsp spec) [Catalytic activity/Vol] 154 U/L 45-190 [facility] Lymphocytes Auto (Bld) [#/Vo l]Ordered By: Berto Villasenor on 11-13-2021 Lymphocytes (Bld) [#/Vol] 2.5 10*3/uL 1.00-4.8 [facility] Lymphocytes/100 WBC Auto (Bl d)Ordered By: Berto Villasenor on 11-13-2021 Lymphocytes/100 WBC (Bld) 31.5 % . [facility] MCH Auto (RBC) [Entitic mass ]Ordered By: Berto Villasenor on 11-13-2021 MCH (RBC) [Entitic mass] 30.8 pg 24.7-34.3 [facility] MCHC Auto (RBC) [Mass/Vol]Or dered By: Berto Villasenor on 11-13-2021 MCHC (RBC) [Mass/Vol] 32.8 g/dL 32.0-35.[address] [facility] MCV Auto (RBC) [Entitic vol] Ordered By: Berto Villasenor on 11-13-2021 MCV (RBC) [Entitic vol] 94.1 fL 80-100 [facility] Monocyte %Ordered By: Berto Villasenor on 11-13-2021 Monocyte % 27 umol/L 11-35 [facility] Monocytes Auto (Bld) [#/Vol] Ordered By: Berto Villasenor on 11-13-2021 Monocytes (Bld) [#/Vol] 0.5 10*3/uL 0.0-0.8 [facility] Monocytes/100 WBC Auto (Bld) Ordered By: Berto Villasenor on 11-13-2021 Monocytes/100 WBC (Bld) 6.5 % . [facility] Neutrophils Auto (Bld) [#/Vo l]Ordered By: Berto Villasenor on 11-13-2021 Neutrophils (Bld) [#/Vol] 4.6 10*3/uL 1.8-7.7 [facility] Neutrophils/100 WBC Auto (Bl d)Ordered By: Berto Villasenor on 11-13-2021 Neutrophils/100 WBC (Bld) 59.0 % . [facility] No Panel InformationOrdered By: Berto Villasenor on 11-13-2021 Estimated GFR () > 60 mL/Min [facility] Comment on above: GFR estimated refere nce range: According to KDOQI guidelines, <60 ml/min/1.73m2 is sufficient to diagnose a patient with chronic kidney disease. Pharmacy Creatinine Clearance (Chem 92.37 [facility] Platelet mean volume Auto (B ld) [Entitic vol]Ordered By: Berto Villasenor on 11-13-2021 Platelet mean volume (Bld) [Entitic vol] 9.2 fL 6.3-10.7 [facility] Platelet poor plasma interna tional normalized ratio (INR) by coagulation assay (relatOrdered By: Berto Villasenor on 11-13-2021 INR Coag (PPP) [Relative time] 1.0 {INR} [facility] Comment on above: INR Therapeutic Rang e A) Pre- and Peroperative OAT started two weeks before surgery. NOT HIP SURGERY: 1.5 - 2.5 HIP SURGERY: 2 - 3 B) Primary and secondary prevention of venous THROMBOSIS: 2 - 3 C) Active venous thrombosis, pulmonary embolism and prevention of recurrent venous thrombosis: 2 - 3 D) Prevention of arterial thromboembolism including patients with mechanical heart valves: 3 - 4.5 INR Therapeutic Rang e A) Pre- and Peroperative OAT started two weeks before surgery. NOT HIP SURGERY: 1.5 - 2.5 HIP SURGERY: 2 - 3B) Primary and secondary prevention of venous THROMBOSIS: 2 - 3C) Active venous thrombosis, pulmonary embolismand prevention of recurrent venous thrombosis: 2 - 3D) Prevention of arterial thromboembolismincluding patients with mechanical heart valves: 3 - 4.5 Platelets Auto (Bld) [#/Vol] Ordered By: Berto Villasenor on 11-13-2021 Platelets (Bld) [#/Vol] 281 10*3/uL 150-450 [facility] Protein [Mass/volume] in Ser um or PlasmaOrdered By: Berto Villasenor on 11-13-2021 Protein [Mass/Vol] 7.1 g/dL 6.1-7.9 [facility] RBC Auto (Bld) [#/Vol]Ordere d By: Berto Villasenor on 11-13-2021 RBC (Bld) [#/Vol] 4.79 10*6/uL 3.60-5.00 [facility] Serum or plasma alanine cardoso otransferase measurement without P-5'-P (enzymatic activiOrdered By: Berto Villasenor on 11-13-2021 ALT No additional P-5'-P [Catalytic activity/Vol] 96 U/L 10-60 [facility] Serum or plasma albumin/glob ulin mass ratioOrdered By: Berto Villasenor on 11-13-2021 Albumin/Globulin [Mass ratio] 1.0 {ratio} [facility] Serum or plasma alkaline sintia sphatase measurement (enzymatic activity/volume)Ordered By: Berto Villasenor on 11-13-2021 ALP [Catalytic activity/Vol] 87 U/L 32-92 [facility] Serum or plasma aspartate am inotransferase measurement (enzymatic activity/volume)Ordered By: Berto Villasenor on 11-13-2021 AST [Catalytic activity/Vol] 64 U/L 10-42 [facility] Serum or plasma calcium skyla urement (mass/volume)Ordered By: Berto Villasenor on 11-13-2021 Calcium [Mass/Vol] 9.0 mg/dL 8.2-10.2 [facility] Serum or plasma chloride florin surement (moles/volume)Ordered By: Berto Villasenor on 11-13-2021 Chloride [Moles/Vol] 101 mmol/L 95-114 [facility] Serum or plasma glucose skyla urement (mass/volume)Ordered By: Berto Villasenor on 11-13-2021 Glucose [Mass/Vol] 96 mg/dL 70-100 [facility] Comment on above: ADA recommended refe rence range Random Glucose Reference Range is dependent on time and content of last meal. Glucose of more than 200 mg/dL in a nonstressed, ambulatory subject supports the diagnosis of Diabetes Mellitus. ADA recommended refe rence rangeRandom Glucose Reference Range is dependent on time and content of last meal. Glucose of more than 200 mg/dL in a nonstressed, ambulatory subject supports the diagnosis of Diabetes Mellitus. Serum or plasma non-glucuron idated bilirubin measurement (mass/volume)Ordered By: Berto Villasenor on 11-13-2021 Bilirubin.indirect [Mass/Vol] TNP [facility] Comment on above: Test not performed Serum or plasma potassium me asurement (moles/volume)Ordered By: Berto Villasenor on 11-13-2021 Potassium [Moles/Vol] 4.0 mmol/L 3.5-5.1 [facility] Serum or plasma sodium measu rement (moles/volume)Ordered By: Berto Villasenor on 11-13-2021 Sodium [Moles/Vol] 135 mmol/L 136-146 [facility] Serum or plasma total biliru bin measurement (mass/volume)Ordered By: Berto Villasenor on 11-13-2021 Bilirubin [Mass/Vol] 0.4 mg/dL 0.3-1.2 [facility] Serum or plasma total carbon dioxide measurement (moles/volume)Ordered By: Berto Villasenor on 11-13-2021 CO2 [Moles/Vol] 24.3 mmol/L 22.0-30.0 [facility] Serum or plasma urea nitroge n measurement (mass/volume)Ordered By: Berto Villasenor on 11-13-2021 Urea nitrogen [Mass/Vol] 14 mg/dL 12-15 [facility] Basophils Auto (Bld) [#/Vol] Ordered By: Estelle Veliz on 10-30-2021 Basophils (Bld) [#/Vol] 0.1 10*3/uL 0.0-0.2 [facility] Basophils/100 WBC Auto (Bld) Ordered By: Estelle Veliz on 10-30-2021 Basophils/100 WBC (Bld) 0.8 % . [facility] Blood hemoglobin measurement (mass/volume)Ordered By: Estelle Veliz on 10-30-2021 Hemoglobin (Bld) [Mass/Vol] 14.9 g/dL 11.8-15.4 [facility] Blood leukocytes automated c ount (number/volume)Ordered By: Estelle Veliz on 10-30-2021 WBC (Bld) [#/Vol] 8.2 10*3/uL 4.5-11.0 [facility] Body fluid albumin measureme nt (mass/volume)Ordered By: Estelle Veliz on 10-30-2021 Albumin (Body fld) [Mass/Vol] 3.5 g/dL 3.2-5.5 [facility] Creatinine and Glomerular fi ltration rate.predicted panel (S/P/Bld)Ordered By: Estelle Veliz on 10-30-2021 Creatinine [Mass/Vol] 0.74 mg/dL 0.44-1.03 [facility] Diagnostic impression [Inter pretation] in Specimen NarrativeOrdered By: Estelle Veliz on 10-30-2021 Diagnostic impression [employer] (Unsp spec) [Interp] See comment . [facility] Comment on above: Positive HCV antibod y screen with the presence of HCV RNA is consistent with active infection. Performed at: [employer] [id number] Treatment Plant Operator: Gavin Mott PhD, Phone: [phone] Performed at: [facility] [employer] [id number] Treatment Plant Operator: Brianda Durant MD, Phone: [phone] Positive HCV antibod y screen with the presence of HCV RNAis consistent with active infection.Performed at: [employer] [id number] Director: Gavin Mott PhD, Phone: [phone] at: [facility] [employer] [id number] Director: Brianda Durant MD, Phone: [phone] Eosinophils Auto (Bld) [#/Vo l]Ordered By: Estelle Veliz on 10-30-2021 Eosinophils (Bld) [#/Vol] 0.1 10*3/uL 0.0-0.45 [facility] Eosinophils/100 WBC Auto (Bl d)Ordered By: Estelle Veliz on 10-30-2021 Eosinophils/100 WBC (Bld) 1.4 % . [facility] Erythrocyte distribution wid th Auto (RBC) [Ratio]Ordered By: Estelle Veliz on 10-30-2021 Erythrocyte distribution width (RBC) [Ratio] 13.4 % 11.9-15.3 [facility] Estimated glomerular filtrat ion rate (GFR) non- AmericanOrdered By: Estelle Veliz on 10-30-2021 GFR/1.73 sq M.predicted among non-blacks MDRD (S/P/Bld) [Vol rate/Area] > 60 mL/Min [facility] Globulin Calc (S) [Mass/Vol] Ordered By: Estelle Veliz on 10-30-2021 Globulin (S) [Mass/Vol] 3.5 g/dL [facility] Hematocrit Auto (Bld) [Volum e fraction]Ordered By: Estelle Veliz on 10-30-2021 Hematocrit (Bld) [Volume fraction] 45.0 % 34.0-46.4 [facility] Hepatitis B virus surface Ag [Presence] in Serum or Plasma by ImmunoassayOrdered By: Estelle Veliz on 10-30-2021 HBV surface Ag IA Ql Negative Negative [facility] Hepatitis C virus RNA [Units /volume] (viral load) in Serum or Plasma by LINDSEY with probOrdered By: Estelle Veliz on 10-30-2021 HCV RNA LINDSEY+probe Qn [id number] [IU]/mL . [facility] Hepatitis C virus RNA [log u nits/volume] (viral load) in Serum or Plasma by LINDSEY withOrdered By: Estelle Veliz on 10-30-2021 HCV RNA LINDSEY+probe [Log units/Vol] 7.124 . [facility] Comment on above: Result Units: log10 IU/mL Laboratory - Chemistry and C hemistry - challengeOrdered By: Estelle Veliz on 10-30-2021 Amylase [Catalytic activity/Vol] 77 U/L 7-64 [facility] Laboratory - Hematology and Cell countsOrdered By: Estelle Veliz on 10-30-2021 Nucleated RBC/100 WBC (Bld) [Ratio] 0.0 % 0-0.5 [facility] Lymphocytes Auto (Bld) [#/Vo l]Ordered By: Estelle Veliz on 10-30-2021 Lymphocytes (Bld) [#/Vol] 1.9 10*3/uL 1.00-4.8 [facility] Lymphocytes/100 WBC Auto (Bl d)Ordered By: Estelle Veliz on 10-30-2021 Lymphocytes/100 WBC (Bld) 23.9 % . [facility] MCH Auto (RBC) [Entitic mass ]Ordered By: Estelle Veliz on 10-30-2021 MCH (RBC) [Entitic mass] 31.0 pg 24.7-34.3 [facility] MCHC Auto (RBC) [Mass/Vol]Or dered By: Estelle Veliz on 10-30-2021 MCHC (RBC) [Mass/Vol] 33.1 g/dL 32.0-35.0 [facility] MCV Auto (RBC) [Entitic vol] Ordered By: Estelle Veliz on 10-30-2021 MCV (RBC) [Entitic vol] 93.5 fL 80-100 F [facility] Monocytes Auto (Bld) [#/Vol] Ordered By: Estelle Veliz on 10-30-2021 Monocytes (Bld) [#/Vol] 0.7 10*3/uL 0.0-0.8 [facility] Monocytes/100 WBC Auto (Bld) Ordered By: Estelle Veliz on 10-30-2021 Monocytes/100 WBC (Bld) 8.5 % . [facility] Neutrophils Auto (Bld) [#/Vo l]Ordered By: Estelle Veliz on 10-30-2021 Neutrophils (Bld) [#/Vol] 5.3 10*3/uL 1.8-7.7 [facility] Neutrophils/100 WBC Auto (Bl d)Ordered By: Estelle Veliz on 10-30-2021 Neutrophils/100 WBC (Bld) 65.4 % . [facility] No Panel InformationOrdered By: Estelle Veliz on 10-30-2021 Estimated GFR () > 60 mL/Min [facility] Comment on above: GFR estimated refere nce range: According to KDOQI guidelines, <60 ml/min/1.73m2 is sufficient to diagnose a patient with chronic kidney disease. Hepatitis A IgM Antibody Negative Negative [facility] Hepatitis B Core IgM Antibody Negative Negative [facility] Hepatitis C RNA Qnt (PCR) Test Info See comment . [facility] Comment on above: The quantitative ran ge of this assay is 15 IU/mL to 100 million IU/mL. The quantitative ran ge of this assay is 15 IU/mL to 100million IU/mL. Pharmacy Creatinine Clearance (Chem N/A [facility] Platelet mean volume Auto (B ld) [Entitic vol]Ordered By: Estelle Veliz on 10-30-2021 Platelet mean volume (Bld) [Entitic vol] 9.6 fL 6.3-10.7 [facility] Platelets Auto (Bld) [#/Vol] Ordered By: Estelle Veliz on 10-30-2021 Platelets (Bld) [#/Vol] 251 10*3/uL 150-450 [facility] Protein [Mass/volume] in Ser um or PlasmaOrdered By: Estelle Veliz on 10-30-2021 Protein [Mass/Vol] 7.0 g/dL 6.1-7.9 [facility] RBC Auto (Bld) [#/Vol]Ordere d By: Estelle Veliz on 10-30-2021 RBC (Bld) [#/Vol] 4.81 10*6/uL 3.60-5.00 [facility] Serum nuclear antibody titer Ordered By: Estelle Veliz on 10-30-2021 Nuclear Ab (S) [Titer] Negative . [facility] Comment on above: Negative <1:80 Borderline 1:80 Positive >1:80 ICAP nomenclature: AC-[id number] For more information about Hep-2 cell patterns use ANApaTrueFaceterns.org, the official website for the International Consensus on Antinuclear Antibody (BEATRIZ) Patterns (ICAP). Speckled cytoplasmic fluorescence is present. The antibodies noted in this pattern may be associated with, but not restricted to, primary biliary cirrhosis (PBC), polymyositis and dermatomyositis (PM/DM), and/or systemic lupus erythematosus (SLE). Performed at: [facility] [address] [place] [id number] [place] Operator: Gavin Mott PhD, Phone: [phone] Negative <1:80 [place] 1:80 Positive >1:80ICAP nomenclature: [id number] more information about Hep-2 cell patterns useANApaTrueFaceterAuction.com.org, the official website for theInternational Consensus on Antinuclear Antibody (BEATRIZ)Patterns (ICAP).Speckled cytoplasmic fluorescence is present. Theantibodies noted in this pattern may be associated with,but not restricted to, primary biliary cirrhosis (PBC),polymyositis and dermatomyositis (PM/DM), and/or systemiclupus erythematosus (SLE).Performed at: [facility] [address] [id number] Director: Gavin Mott PhD, Phone: [phone] Serum or plasma alanine cardoso otransferase measurement without P-5'-P (enzymatic activiOrdered By: Estelle Veliz on 10-30-2021 ALT No additional P-5'-P [Catalytic activity/Vol] 118 U/L 10-60 [facility] Serum or plasma albumin/glob ulin mass ratioOrdered By: Estelle Veliz on 10-30-2021 Albumin/Globulin [Mass ratio] 1.0 {ratio} [facility] Serum or plasma alkaline sintia sphatase measurement (enzymatic activity/volume)Ordered By: Estelle Veliz on 10-30-2021 ALP [Catalytic activity/Vol] 79 U/L 32-92 [facility] Serum or plasma aspartate am inotransferase measurement (enzymatic activity/volume)Ordered By: Estelle Veliz on 10-30-2021 AST [Catalytic activity/Vol] 95 U/L 10-42 [facility] Serum or plasma calcium skyla urement (mass/volume)Ordered By: Estelle Veliz on 10-30-2021 Calcium [Mass/Vol] 8.8 mg/dL 8.2-10.2 [facility] Serum or plasma chloride florin surement (moles/volume)Ordered By: Estelle Veliz on 10-30-2021 Chloride [Moles/Vol] 101 mmol/L 95-114 [facility] Serum or plasma glucose skyla urement (mass/volume)Ordered By: Estelle Veliz on 10-30-2021 Glucose [Mass/Vol] 100 mg/dL 70-100 [facility] Comment on above: ADA recommended refe rence range Random Glucose Reference Range is dependent on time and content of last meal. Glucose of more than 200 mg/dL in a nonstressed, ambulatory subject supports the diagnosis of Diabetes Mellitus. ADA recommended refe rence rangeRandom Glucose Reference Range is dependent on time and content of last meal. Glucose of more than 200 mg/dL in a nonstressed, ambulatory subject supports the diagnosis of Diabetes Mellitus. Serum or plasma hepatitis C virus antibody signal/cutoff ratio by immunoassay (relatiOrdered By: Estelle Veliz on 10-30-2021 HCV Ab Signal/Cutoff IA [Rel units/Vol] >11.0 s/co ratio 0.0-0.9 [facility] Serum or plasma potassium me asurement (moles/volume)Ordered By: Estelle Veliz on 10-30-2021 Potassium [Moles/Vol] 4.2 mmol/L 3.5-5.1 [facility] Serum or plasma sodium measu rement (moles/volume)Ordered By: Estelle Veliz on 10-30-2021 Sodium [Moles/Vol] 136 mmol/L 136-146 [facility] Serum or plasma total biliru bin measurement (mass/volume)Ordered By: Estelle Veliz on 10-30-2021 Bilirubin [Mass/Vol] 0.3 mg/dL 0.3-1.2 [facility] Serum or plasma total carbon dioxide measurement (moles/volume)Ordered By: Estelle Veliz on 10-30-2021 CO2 [Moles/Vol] 22.6 mmol/L 22.0-30.0 [facility] Serum or plasma urea nitroge n measurement (mass/volume)Ordered By: Estelle Veliz on 10-30-2021 Urea nitrogen [Mass/Vol] 11 mg/dL 12-15 [facility] CBC AUTO DIFFon 10-15-2021 BASO # 0.0 103/ul Normal 0.0-0.1 [facility] Comment on above: Performed By: #### C BC #### [facility] [address] [address] [address] Nolan Biggs Basophils/100 WBC (Bld) 0.2 % Normal 0.2-2.0 [facility] Comment on above: Performed By: #### C BC #### [facility] [address] [address] [address] Nolan Biggs EO # 0.1 103/ul Normal 0.0-0.7 [facility] Comment on above: Performed By: #### C BC #### [facility] [address] [address] [address] Nolan Biggs Eosinophils/100 WBC (Bld) 2.0 % Normal 0.9-7.0 [facility] Comment on above: Performed By: #### C BC #### [facility] [address] [place] [address] Dr. Nolan Biggs Erythrocyte distribution width (RBC) [Ratio] 12.7 % Normal 11.0-15.0 [facility] Comment on above: Performed By: #### C BC #### [facility] [address] [place] [address] Dr. Nolan Biggs Hematocrit (Bld) [Volume fraction] 43.7 % Normal 36.0-48.0 [facility] Comment on above: Performed By: #### C BC #### [facility] [address] [place] [address] Dr. Nolan Biggs Hemoglobin (Bld) [Mass/Vol] 14.8 g/dL Normal 12.0-16.0 [facility] Comment on above: Performed By: #### C BC #### [facility] [address] [place] [address] Dr. Nolan Biggs IG # 0.02 10e3/ul Normal 0.00-0.03 [facility] Comment on above: Performed By: #### C BC #### [facility] [address] [place] [address] Dr. Nolan Biggs IG % 0.3 % Normal 0.0-0.5 [facility] Comment on above: Performed By: #### C BC #### [facility] [address] [place] [address] Dr. Nolan Biggs LYMPH # 0.4 103/ul Critically low 1.2-3.8 [facility] Comment on above: Performed By: #### C BC #### [facility] [address] [place] [address] Dr. Nolan Biggs Lymphocytes/100 WBC (Bld) 7.0 % Critically low 20.5-60.0 [facility] Comment on above: Performed By: #### C BC #### [facility] [address] [place] [address] Dr. Nolan Biggs MANUAL DIFF REQ NO Normal [facility] Comment on above: Performed By: #### C BC #### [facility] [address] [place] [address] Dr. Nolan Biggs MCH (RBC) [Entitic mass] 31.3 pg Normal 26.7-34.0 [facility] Comment on above: Performed By: #### C BC #### [facility] [address] [address] [address] Nolan Biggs MCHC (RBC) [Mass/Vol] 33.9 g/dL Normal 29.9-35.2 [facility] Comment on above: Performed By: #### C BC #### [facility] [address] [place] [address] Dr. Nolan Biggs MCV (RBC) [Entitic vol] 92.4 fL Normal 81.0-99.0 [facility] Comment on above: Performed By: #### C BC #### [facility] [address] [place] [address] Dr. Nolan Biggs MONO # 0.3 103/ul Normal 0.3-0.8 [facility] Comment on above: Performed By: #### C BC #### [facility] [address] [place] [address] Dr. Nolan Biggs Monocytes/100 WBC (Bld) 5.7 % Normal 1.7-12.0 [facility] Comment on above: Performed By: #### C BC #### [facility] [address] [place] [address] Dr. Nolan Biggs NEUT # 5.1 103/ul Normal 1.4-6.5 [facility] Comment on above: Performed By: #### C BC #### [facility] [address] [place] [address] Dr. Nolan Biggs Neutrophils/100 WBC (Bld) 84.8 % Critically high 43.0-75.0 [facility] Comment on above: Performed By: #### C BC #### [facility] [address] [place] [address] Dr. Nolan Biggs Platelet mean volume (Bld) [Entitic vol] 10.5 fL Normal 9.5-13.5 [facility] Comment on above: Performed By: #### C BC #### [facility] [address] [place] [address] Dr. Nolan Biggs PLT 218 103/ul Normal 150-450 [facility] Comment on above: Performed By: #### C BC #### [facility] [address] [place] [address] Dr. Nolan Biggs RBC 4.73 106/ul Normal 4.20-5.40 [facility] Comment on above: Performed By: #### C BC #### [facility] [address] [place] [address] Dr. Nolan Biggs WBC 6.0 103/ul Normal 4.0-11.0 [facility] Comment on above: Performed By: #### C BC #### [facility] [address] [place] [address] Dr. Nolan Biggs ER URINE PROFILEon 2 Bilirubin Ql (U) Negative Normal NEGATIVE [facility] Comment on above: Performed By: #### E RUR, PREGU #### [facility] [address] [place] [address] Dr. Nolan Biggs Clarity (U) CLEAR Normal CLEAR [facility] Comment on above: Performed By: #### E RUR, PREGU #### [facility] [address] [place] [address] Dr. Nolan Biggs Color (U) YELLOW Normal YELLOW [facility] Comment on above: Performed By: #### E RUR, PREGU #### [facility] [address] [place] [address] Dr. Nolan Biggs ERULAUREND A micrscopic examina tion will be performed if indicated. Normal [facility] Comment on above: Performed By: #### E RUR, PREGU #### [facility] [address] [place] [address] Dr. Nolan Biggs Glucose Ql (U) Negative Normal NEGATIVE [facility] Comment on above: Performed By: #### E RUR, PREGU #### [facility] [address] [place] [address] Dr. Nolan Biggs Hemoglobin Ql (U) Negative Normal NEGATIVE [facility] Comment on above: Performed By: #### E RUR, PREGU #### [facility] [address] [place] [address] Dr. Nolan Biggs Ketones Ql (U) Negative Normal NEGATIVE [facility] Comment on above: Performed By: #### E RUR, PREGU #### [facility] [address] [place] [address] Dr. Nolan Biggs LEUKOCYTES Negative Normal NEGATIVE [facility] Comment on above: Performed By: #### E RUR, PREGU #### [facility] [address] [place] [address] Dr. Nolan Biggs Nitrite Ql (U) Negative Normal NEGATIVE [facility] Comment on above: Performed By: #### E RUR, PREGU #### [facility] [address] [place] [address] Dr. Nolan Biggs pH (U) 7.0 [pH] Normal 5-9 [facility] Comment on above: Performed By: #### E RUR, PREGU #### [facility] [address] [place] [address] Dr. Nolan Biggs SPEC GRAVITY 1.020 Normal 1.005-<=1.02 5 [facility] Comment on above: Performed By: #### E RUR, PREGU #### [facility] [address] [place] [address] Dr. Nolan Biggs UA PROTEIN TRACE Normal NEGATIVE/ TRACE [facility] Comment on above: Performed By: #### Jazmine SARABIAR, PREGU #### [facility] [address] [place] [address] Dr. Nolan Biggs UR MICRO IND NOT INDICATED Normal [facility] Comment on above: Performed By: #### E RUR, PREGU #### [facility] [address] [place] [address] Dr. Nolan Biggs Urobilinogen Qn (U) 1.0 {Jan'U}/dL Normal 0.2 - 1. 0 [facility] Comment on above: Performed By: #### E RUR, PREGU #### [facility] [address] [place] [address] Dr. Nolan Biggs LIPASEon 10-15-2021 Lipase [Catalytic activity/Vol] 56.0 U/L Critically low 73.0-393.0 [facility] Comment on above: Performed By: #### L IPA, CMP #### [facility] [address] [address] [address] Nolan Biggs URon 10-15-2021 , QUAL Negative Normal NEGATIVE [facility] Comment on above: Performed By: #### E RUR, PREGU #### [facility] [address] [place] [address] Dr. Nolan Biggs PROF 14(COMP METB)on 022 Albumin [Mass/Vol] 3.5 g/dL Normal 3.4-5.0 [facility] Comment on above: Performed By: #### L IPA, CMP #### [facility] [address] [place] [address] Dr. Nolan Biggs Albumin/Globulin [Mass ratio] 0.9 {ratio} Normal [facility] Comment on above: Performed By: #### L IPA, CMP #### [facility] [address] [place] [address] Dr. Nolan Biggs ALP [Catalytic activity/Vol] 78 U/L Normal 46-116 [facility] Comment on above: Performed By: #### L IPA, CMP #### [facility] [address] [place] [address] Dr. Nolan Biggs ALT [Catalytic activity/Vol] 157 U/L Critically high 14-59 [facility] Comment on above: Performed By: #### L IPA, CMP #### [facility] [address] [place] [address] Dr. Nolan Biggs Anion gap [Moles/Vol] 11.3 mmol/L Normal [facility] Comment on above: Performed By: #### L IPA, CMP #### [facility] [address] [place] [address] Dr. Nolan Biggs AST [Catalytic activity/Vol] 84 U/L Critically high 15-37 [facility] Comment on above: Performed By: #### L IPA, CMP #### [facility] [address] [place] [address] Dr. Nolan Biggs Bilirubin [Mass/Vol] 0.5 mg/dL Normal 0.2-1.0 [facility] Comment on above: Performed By: #### L IPA, CMP #### [facility] [address] [address] [address] Nolan Biggs Calcium [Mass/Vol] 8.2 mg/dL Critically low 8.5-10.1 [facility] Comment on above: Performed By: #### L IPA, CMP #### [facility] [address] [address] [address] Nolan Biggs Chloride [Moles/Vol] 106 mmol/L Normal 98-107 [facility] Comment on above: Performed By: #### L IPA, CMP #### [facility] [address] [place] [address] Dr. Nolan Biggs CO2 [Moles/Vol] 23.6 mmol/L Normal 21.0-32.0 [facility] Comment on above: Performed By: #### L IPA, CMP #### [facility] [address] [place] [address] Dr. Nolan Biggs Creatinine [Mass/Vol] 0.83 mg/dL Normal 0.55-1.02 [facility] Comment on above: Performed By: #### L IPA, CMP #### [facility] [address] [place] [address] Dr. Nolan Biggs EGFR-AF URUGUAYAN >60 Normal >=60 [facility] Comment on above: Performed By: #### L IPA, CMP #### [facility] [address] [place] [address] Dr. Nolan Biggs EGFR-NON AF URUGUAYAN >60 Normal >=60 [facility] Comment on above: Performed By: #### L IPA, CMP #### [facility] [address] [place] [address] Dr. Nolan Biggs Globulin (S) [Mass/Vol] 4.0 g/dL Normal [facility] Comment on above: Performed By: #### L IPA, CMP #### [facility] [address] [place] [address] Dr. Noaln Biggs Glucose [Mass/Vol] 115 mg/dL Critically high 74-106 [facility] Comment on above: Performed By: #### L IPA, CMP #### [facility] [address] [address] [address] Nolan Biggs Potassium [Moles/Vol] 3.9 mmol/L Normal 3.5-5.1 [facility] Comment on above: Performed By: #### L IPA, CMP #### [facility] [address] [address] [address] Nolan Biggs Protein [Mass/Vol] 7.5 g/dL Normal 6.4-8.2 [facility] Comment on above: Performed By: #### L IPA, CMP #### [facility] [address] [address] [address] Nolan Biggs Sodium [Moles/Vol] 137 mmol/L Normal 136-145 [facility] Comment on above: Performed By: #### L IPA, CMP #### [facility] [address] [address] [address] Nolan Biggs Urea nitrogen [Mass/Vol] 13.0 mg/dL Normal 7.0-18.0 [facility] Comment on above: Performed By: #### L IPA, CMP #### [facility] [address] [address] [address] Nolan Biggs Urea nitrogen/Creatinine [Mass ratio] 15.7 mg/mg Normal [facility] Comment on above: Performed By: #### L IPA, CMP #### [facility] [address] [address] [address] Nolan Biggs XR ABD FLAT UP_PA Jeevan 10-15 XR ABD FLAT UP_PA CH EXAMINATION: XR ABD FLAT UP_PA CH HISTORY: NAUSEA WITH VOMITING, UNSPECIFIED ; acute left flank pain radiating to groin COMPARISON: No relevant comparison available. FINDINGS: LUNGS: No infiltrate, pneumothorax, or pleural effusion. MEDIASTINUM: No abnormal widening. BOWEL GAS PATTERN: Non-obstructed. No abnormal dilation or suspicious fluid levels. FREE AIR: None. CALCIFICATIONS: No visible urinary tract calculi. BONES: No fracture or visible bone lesion. OTHER: Bilateral fallopian tube clips. Cholecystectomy. IMPRESSION: 1. No acute cardiopulmonary process. 2. Normal bowel gas pattern. 3. No visible urinary tract calculi. Electronically authenticated by: PROMISE MCKEON Date: 2021-10-15 12:58 Normal [facility] Serum or plasma potassium me asurement (moles/volume)Ordered By: José Miguel Mcnamara on 10-10-2021 Potassium [Moles/Vol] 3.9 mmol/L 3.5-5.1 [facility] Activated partial thrombopla stin time (aPTT) in platelet poor plasma by coagulation aOrdered By: José Miguel Mcnamara on 10-09-2021 aPTT Coag (PPP) [Time] 24.4 s 25.1-36.5 [facility] Automated erythrocytes count in urine sediment (number/area)Ordered By: PROVIDER TEMP on 10-09-2021 RBC Auto (Urine sed) [#/Area] 1-2 [HPF] 0-4 [facility] Automated leukocytes count i n urine sediment (number/area)Ordered By: PROVIDER TEMP on 10-09-2021 WBC Auto (Urine sed) [#/Area] 0-1 [HPF] 0-4 [facility] Basophils Auto (Bld) [#/Vol] Ordered By: José Miguel Mcnamara on 10-09-2021 Basophils (Bld) [#/Vol] 0.1 10*3/uL 0.0-0.2 [facility] Basophils/100 WBC Auto (Bld) Ordered By: José Miguel Mcnamara on 10-09-2021 Basophils/100 WBC (Bld) 0.7 % . [facility] Bilirubin Test strip Ql (U)O rdered By: PROVIDER TEMP on 10-09-2021 Bilirubin Ql (U) Negative Negative [facility] Blood hemoglobin measurement (mass/volume)Ordered By: José Miguel Mcnamara on 10-09-2021 Hemoglobin (Bld) [Mass/Vol] 14.4 g/dL 11.8-15.4 [facility] Blood leukocytes automated c ount (number/volume)Ordered By: José Miguel Mcnamara on 10-09-2021 WBC (Bld) [#/Vol] 8.3 10*3/uL 4.5-11.0 [facility] Body fluid albumin measureme nt (mass/volume)Ordered By: José Miguel Mcnamara on 10-09-2021 Albumin (Body fld) [Mass/Vol] 3.4 g/dL 3.2-5.5 [facility] Color Auto (U)Ordered By: RICH KURTZ on 10-09-2021 Color (U) Yellow Yellow [facility] Creatinine and Glomerular fi ltration rate.predicted panel (S/P/Bld)Ordered By: José Miguel Mcnamara on 10-09-2021 Creatinine [Mass/Vol] 0.94 mg/dL 0.44-1.03 [facility] Direct bilirubin measurement Ordered By: José Miguel Mcnamara on 10-09-2021 Bilirubin.direct [Mass/Vol] 0.3 mg/dL 0.0-0.4 [facility] Eosinophils Auto (Bld) [#/Vo l]Ordered By: José Miguel Mcnamara on 10-09-2021 Eosinophils (Bld) [#/Vol] 0.3 10*3/uL 0.0-0.45 [facility] Eosinophils/100 WBC Auto (Bl d)Ordered By: José Miguel Mcnamara on 10-09-2021 Eosinophils/100 WBC (Bld) 3.1 % . [facility] Erythrocyte distribution wid th Auto (RBC) [Ratio]Ordered By: José Miguel Mcnamara on 10-09-2021 Erythrocyte distribution width (RBC) [Ratio] 13.2 % 11.9-15.3 [facility] Estimated glomerular filtrat ion rate (GFR) non- AmericanOrdered By: José Miguel Mcnamara on 10-09-2021 GFR/1.73 sq M.predicted among non-blacks MDRD (S/P/Bld) [Vol rate/Area] > 60 mL/Min [facility] Globulin Calc (S) [Mass/Vol] Ordered By: José Miguel Mcnamara on 10-09-2021 Globulin (S) [Mass/Vol] 3.3 g/dL [facility] Hematocrit Auto (Bld) [Volum e fraction]Ordered By: José Miguel Mcnamara on 10-09-2021 Hematocrit (Bld) [Volume fraction] 42.6 % 34.0-46.4 [facility] Ketones Auto test strip (U) [Mass/Vol]Ordered By: MOLLY KURTZ on 10-09-2021 Ketones (U) [Mass/Vol] Trace Negative [facility] - Chemistry and C hemistry - challengeOrdered By: José Miguel Mcnamara on 10-09-2021 Lipase [Catalytic activity/Vol] 31.0 U/L 22-51 [facility] - CoagulationOrde red By: José Miguel Mcnamara on 10-09-2021 PT Coag (PPP) [Time] 11.1 s 9.0-12.9 [facility] - Hematology and Cell countsOrdered By: José Miguel Mcnamara on 10-09-2021 Nucleated RBC/100 WBC (Bld) [Ratio] 0.1 % 0-0.5 [facility] - UrinalysisOrder ed By: PROVIDER TEMP on 10-09-2021 Hyaline casts LM Ql (Urine sed) 0-8 [LPF] 0-8 [facility] Lymphocytes Auto (Bld) [#/Vo l]Ordered By: José Miguel Mcnamara on 10-09-2021 Lymphocytes (Bld) [#/Vol] 2.6 10*3/uL 1.00-4.8 [facility] Lymphocytes/100 WBC Auto (Bl d)Ordered By: José Miguel Mcnamara on 10-09-2021 Lymphocytes/100 WBC (Bld) 30.9 % . [facility] MCH Auto (RBC) [Entitic mass ]Ordered By: José Miguel Mcnamara on 10-09-2021 MCH (RBC) [Entitic mass] 31.7 pg 24.7-34.3 [facility] MCHC Auto (RBC) [Mass/Vol]Or dered By: José Miguel Mcnamara on 10-09-2021 MCHC (RBC) [Mass/Vol] 33.7 g/dL 32.0-35.0 [facility] MCV Auto (RBC) [Entitic vol] Ordered By: José Miguel Mcnamara on 10-09-2021 MCV (RBC) [Entitic vol] 94.3 fL 80-100 [facility] Monocytes Auto (Bld) [#/Vol] Ordered By: José Miguel Mcnamara on 10-09-2021 Monocytes (Bld) [#/Vol] 0.6 10*3/uL 0.0-0.8 [facility] Monocytes/100 WBC Auto (Bld) Ordered By: José Miguel Mcnamara on 10-09-2021 Monocytes/100 WBC (Bld) 6.6 % . [facility] Neutrophils Auto (Bld) [#/Vo l]Ordered By: José Miguel Mcnamara on 10-09-2021 Neutrophils (Bld) [#/Vol] 4.9 10*3/uL 1.8-7.7 [facility] Neutrophils/100 WBC Auto (Bl d)Ordered By: José Miguel Mcnamara on 10-09-2021 Neutrophils/100 WBC (Bld) 58.7 % . [facility] Nitrite Test strip Ql (U)Ord ered By: PROVIDER TEMP on 10-09-2021 Nitrite Ql (U) Negative Negative [facility] No Panel InformationOrdered By: José Miguel Mcnamara on 10-09-2021 Estimated GFR () > 60 mL/Min [facility] Comment on above: GFR estimated refere nce range: According to KDOQI guidelines, <60 ml/min/1.73m2 is sufficient to diagnose a patient with chronic kidney disease. Pharmacy Creatinine Clearance (Chem 90.41 [facility] Platelet mean volume Auto (B ld) [Entitic vol]Ordered By: José Miguel Mcnamara on 10-09-2021 Platelet mean volume (Bld) [Entitic vol] 9.2 fL 6.3-10.7 [facility] Platelet poor plasma interna tional normalized ratio (INR) by coagulation assay (relatOrdered By: José Miguel Mcnamara on 10-09-2021 INR Coag (PPP) [Relative time] 1.0 {INR} [facility] Comment on above: INR Therapeutic Rang e A) Pre- and Peroperative OAT started two weeks before surgery. NOT HIP SURGERY: 1.5 - 2.5 HIP SURGERY: 2 - 3 B) Primary and secondary prevention of venous THROMBOSIS: 2 - 3 C) Active venous thrombosis, pulmonary embolism and prevention of recurrent venous thrombosis: 2 - 3 D) Prevention of arterial thromboembolism including patients with mechanical heart valves: 3 - 4.5 INR Therapeutic Rang e A) Pre- and Peroperative OAT started two weeks before surgery. NOT HIP SURGERY: 1.5 - 2.5 HIP SURGERY: 2 - 3B) Primary and secondary prevention of venous THROMBOSIS: 2 - 3C) Active venous thrombosis, pulmonary embolismand prevention of recurrent venous thrombosis: 2 - 3D) Prevention of arterial thromboembolismincluding patients with mechanical heart valves: 3 - 4.5 Platelets Auto (Bld) [#/Vol] Ordered By: José Miguel Mcnamara on 10-09-2021 Platelets (Bld) [#/Vol] 233 10*3/uL 150-450 [facility] Protein Auto test strip (U) [Mass/Vol]Ordered By: PROVIDER TEMP on 10-09-2021 Protein (U) [Mass/Vol] Trace mg/dL Negative [facility] Protein [Mass/volume] in Ser um or PlasmaOrdered By: José Miguel Mcnamara on 10-09-2021 Protein [Mass/Vol] 6.7 g/dL 6.1-7.9 [facility] RBC Auto (Bld) [#/Vol]Ordere d By: José Miguel Mcnamara on 10-09-2021 RBC (Bld) [#/Vol] 4.52 10*6/uL 3.60-5.00 [facility] Serum or plasma alanine cardoso otransferase measurement without P-5'-P (enzymatic activiOrdered By: José Miguel Mcnamara on 10-09-2021 ALT No additional P-5'-P [Catalytic activity/Vol] 101 U/L 10-60 [facility] Serum or plasma albumin/glob ulin mass ratioOrdered By: José Miguel Mcnamara on 10-09-2021 Albumin/Globulin [Mass ratio] 1.0 {ratio} [facility] Serum or plasma alkaline sintia sphatase measurement (enzymatic activity/volume)Ordered By: José Miguel Mcnamara on 10-09-2021 ALP [Catalytic activity/Vol] 79 U/L 32-92 [facility] Serum or plasma aspartate am inotransferase measurement (enzymatic activity/volume)Ordered By: José Miguel Mcnamara on 10-09-2021 AST [Catalytic activity/Vol] 66 U/L 10-42 [facility] Serum or plasma calcium skyla urement (mass/volume)Ordered By: José Mgiuel Mcnamara on 10-09-2021 Calcium [Mass/Vol] 8.8 mg/dL 8.2-10.2 [facility] Serum or plasma chloride florin surement (moles/volume)Ordered By: José Miguel Mcnamara on 10-09-2021 Chloride [Moles/Vol] 107 mmol/L 95-114 [facility] Serum or plasma glucose skyla urement (mass/volume)Ordered By: José Miguel Mcnamara on 10-09-2021 Glucose [Mass/Vol] 103 mg/dL 70-100 [facility] Comment on above: ADA recommended refe rence range Random Glucose Reference Range is dependent on time and content of last meal. Glucose of more than 200 mg/dL in a nonstressed, ambulatory subject supports the diagnosis of Diabetes Mellitus. ADA recommended refe rence rangeRandom Glucose Reference Range is dependent on time and content of last meal. Glucose of more than 200 mg/dL in a nonstressed, ambulatory subject supports the diagnosis of Diabetes Mellitus. Serum or plasma non-glucuron idated bilirubin measurement (mass/volume)Ordered By: José Miguel Mcnamara on 10-09-2021 Bilirubin.indirect [Mass/Vol] 0.4 mg/dL [facility] Serum or plasma sodium measu rement (moles/volume)Ordered By: José Miguel Mcnamara on 10-09-2021 Sodium [Moles/Vol] 139 mmol/L 136-146 [facility] Serum or plasma total biliru bin measurement (mass/volume)Ordered By: José Miguel Mcnamara on 10-09-2021 Bilirubin [Mass/Vol] 0.7 mg/dL 0.3-1.2 [facility] Serum or plasma total carbon dioxide measurement (moles/volume)Ordered By: José Miguel Mcnamara on 10-09-2021 CO2 [Moles/Vol] 23.0 mmol/L 22.0-30.0 [facility] Serum or plasma urea nitroge n measurement (mass/volume)Ordered By: José Miguel Mcnamara on 10-09-2021 Urea nitrogen [Mass/Vol] 16 mg/dL 9-23 [facility] Specific gravity Auto test s trip (U) [Rel density]Ordered By: PROVIDER TEMP on 10-09-2021 Specific gravity (U) [Rel density] 1.038 1.001-1.030 [facility] Squamous epithelial cells de tection in urine sediment by light microscopyOrdered By: PROVIDER TEMP on 10-09-2021 Epithelial cells.squamous LM Ql (Urine sed) 3-4 [HPF] 0-2 [facility] Urine bacteria detection by automated methodOrdered By: PROVIDER TEMP on 10-09-2021 Bacteria Auto Ql (U) 1+ None Seen [facility] Urine clarity by refractomet ry automatedOrdered By: PROVIDER TEMP on 10-09-2021 Clarity Refractometry automated (U) Turbid Clear [facility] Urine glucose measurement by automated test strip (mass/volume)Ordered By: PROVIDER TEMP on 10-09-2021 Glucose Auto test strip (U) [Mass/Vol] Normal mg/dL Normal [facility] Urine hemoglobin detection b y automated test stripOrdered By: PROVIDER TEMP on 10-09-2021 Hemoglobin Auto test strip Ql (U) Negative Negative [facility] Urine leukocyte esterase det ection by automated test stripOrdered By: PROVIDER TEMP on 10-09-2021 Leukocyte esterase Auto test strip Ql (U) Negative Negative [facility] Urobilinogen Auto test strip (U) [Mass/Vol]Ordered By: PROVIDER TEMP on 10-09-2021 Urobilinogen (U) [Mass/Vol] Normal mg/dL Normal [facility] pH Auto test strip (U)Ordere d By: PROVIDER TEMP on 10-09-2021 pH (U) 7.0 [pH] 5.0-9.0 [facility] Basophils Auto (Bld) [#/Vol] Ordered By: Dagoberto Romero on 09-19-2021 Basophils (Bld) [#/Vol] 0.0 10*3/uL 0.0-0.2 [facility] Basophils/100 WBC Auto (Bld) Ordered By: Dagoberto Romero on 09-19-2021 Basophils/100 WBC (Bld) 0.3 % . [facility] Blood hemoglobin measurement (mass/volume)Ordered By: Dagoberto Romero on 09-19-2021 Hemoglobin (Bld) [Mass/Vol] 15.0 g/dL 11.8-15.4 [facility] Blood leukocytes automated c ount (number/volume)Ordered By: Dagoberto Romero on 09-19-2021 WBC (Bld) [#/Vol] 6.9 10*3/uL 4.5-11.0 [facility] Creatinine and Glomerular fi ltration rate.predicted panel (S/P/Bld)Ordered By: Dagoberto Romero on 09-19-2021 Creatinine [Mass/Vol] 0.86 mg/dL 0.44-1.03 [facility] Eosinophils Auto (Bld) [#/Vo l]Ordered By: Dagoberto Romero on 09-19-2021 Eosinophils (Bld) [#/Vol] 0.3 10*3/uL 0.0-0.45 [facility] Eosinophils/100 WBC Auto (Bl d)Ordered By: Dagoberto Romero on 09-19-2021 Eosinophils/100 WBC (Bld) 4.7 % . [facility] Erythrocyte distribution wid th Auto (RBC) [Ratio]Ordered By: Dagoberto Romero on 09-19-2021 Erythrocyte distribution width (RBC) [Ratio] 13.1 % 11.9-15.3 [facility] Estimated glomerular filtrat ion rate (GFR) non- AmericanOrdered By: Dagoberto Romero on 09-19-2021 GFR/1.73 sq M.predicted among non-blacks MDRD (S/P/Bld) [Vol rate/Area] > 60 mL/Min [facility] Hematocrit Auto (Bld) [Volum e fraction]Ordered By: Dagoberto Romero on 09-19-2021 Hematocrit (Bld) [Volume fraction] 44.6 % 34.0-46.4 [facility] Laboratory - Hematology and Cell countsOrdered By: Dagoberto Romero on 09-19-2021 Nucleated RBC/100 WBC (Bld) [Ratio] 0.1 % 0-0.5 [facility] Lymphocytes Auto (Bld) [#/Vo l]Ordered By: Dagoberto Romero on 09-19-2021 Lymphocytes (Bld) [#/Vol] 2.0 10*3/uL 1.00-4.8 [facility] Lymphocytes/100 WBC Auto (Bl d)Ordered By: Dagoberto Romero on 09-19-2021 Lymphocytes/100 WBC (Bld) 28.5 % . [facility] MCH Auto (RBC) [Entitic mass ]Ordered By: Dagoberto Romero on 09-19-2021 MCH (RBC) [Entitic mass] 31.7 pg 24.7-34.3 [facility] MCHC Auto (RBC) [Mass/Vol]Or dered By: Dagoberto Romero on 09-19-2021 MCHC (RBC) [Mass/Vol] 33.7 g/dL 32.0-35.0 [facility] MCV Auto (RBC) [Entitic vol] Ordered By: Dagoberto Romero on 09-19-2021 MCV (RBC) [Entitic vol] 94.2 fL 80-100 [facility] Monocytes Auto (Bld) [#/Vol] Ordered By: Dagoberto Romero on 09-19-2021 Monocytes (Bld) [#/Vol] 0.7 10*3/uL 0.0-0.8 [facility] Monocytes/100 WBC Auto (Bld) Ordered By: Dagoberto Romero on 09-19-2021 Monocytes/100 WBC (Bld) 9.7 % . [facility] Neutrophils Auto (Bld) [#/Vo l]Ordered By: Dagoberto Romero on 09-19-2021 Neutrophils (Bld) [#/Vol] 3.9 10*3/uL 1.8-7.7 [facility] Neutrophils/100 WBC Auto (Bl d)Ordered By: Dagoberto Romero on 09-19-2021 Neutrophils/100 WBC (Bld) 56.8 % . [facility] No Panel InformationOrdered By: Dagoberto Romero on 09-19-2021 Estimated GFR () > 60 mL/Min [facility] Comment on above: GFR estimated refere nce range: According to KDOQI guidelines, <60 ml/min/1.73m2 is sufficient to diagnose a patient with chronic kidney disease. Pharmacy Creatinine Clearance (Chem N/A [facility] Platelet mean volume Auto (B ld) [Entitic vol]Ordered By: Dagoberto Romero on 09-19-2021 Platelet mean volume (Bld) [Entitic vol] 9.6 fL 6.3-10.7 [facility] Platelets Auto (Bld) [#/Vol] Ordered By: Dagoberto Romero on 09-19-2021 Platelets (Bld) [#/Vol] 254 10*3/uL 150-450 [facility] RBC Auto (Bld) [#/Vol]Ordere d By: Dagoberto Romero on 09-19-2021 RBC (Bld) [#/Vol] 4.74 10*6/uL 3.60-5.00 [facility] Serum or plasma calcium skyla urement (mass/volume)Ordered By: Dagoberto Romero on 09-19-2021 Calcium [Mass/Vol] 8.5 mg/dL 8.2-10.2 [facility] Serum or plasma chloride florin surement (moles/volume)Ordered By: Dagoberto Romreo on 09-19-2021 Chloride [Moles/Vol] 105 mmol/L 95-114 [facility] Serum or plasma glucose skyla urement (mass/volume)Ordered By: Dagoberto Romero on 09-19-2021 Glucose [Mass/Vol] 97 mg/dL 70-100 [facility] Comment on above: ADA recommended refe rence range Random Glucose Reference Range is dependent on time and content of last meal. Glucose of more than 200 mg/dL in a nonstressed, ambulatory subject supports the diagnosis of Diabetes Mellitus. Serum or plasma potassium me asurement (moles/volume)Ordered By: Dagoberto Romero on 09-19-2021 Potassium [Moles/Vol] 4.1 mmol/L 3.5-5.1 [facility] Serum or plasma sodium measu rement (moles/volume)Ordered By: Dagoberto Romero on 09-19-2021 Sodium [Moles/Vol] 137 mmol/L 136-146 [facility] Serum or plasma total carbon dioxide measurement (moles/volume)Ordered By: Dagoberto Romero on 09-19-2021 CO2 [Moles/Vol] 23.5 mmol/L 22.0-30.0 [facility] Serum or plasma urea nitroge n measurement (mass/volume)Ordered By: Dagoberto Romero on 09-19-2021 Urea nitrogen [Mass/Vol] 12 mg/dL - [facility] CBC AUTO DIFFon 09-13-2021 BASO # 0.0 103/ul Normal 0.0-0.1 [facility] Comment on above: Performed By: #### C BC #### [facility] [address] [place] [address] Dr. Nolan Biggs Basophils/100 WBC (Bld) 0.2 % Normal 0.2-2.0 [facility] Comment on above: Performed By: #### C BC #### [facility] [address] [place] [address] Dr. Nolan Biggs EO # 0.2 103/ul Normal 0.0-0.7 [facility] Comment on above: Performed By: #### C BC #### [facility] [address] [place] [address] Dr. Nolan Biggs Eosinophils/100 WBC (Bld) 3.2 % Normal 0.9-7.0 [facility] Comment on above: Performed By: #### C BC #### [facility] [address] [place] [address] Dr. Nolan Biggs Erythrocyte distribution width (RBC) [Ratio] 12.3 % Normal 11.0-15.0 [facility] Comment on above: Performed By: #### C BC #### [facility] [address] [place] [address] Dr. Nolan Biggs Hematocrit (Bld) [Volume fraction] 44.6 % Normal 36.0-48.0 [facility] Comment on above: Performed By: #### C BC #### [facility] [address] [place] [address] Dr. Nolan Biggs Hemoglobin (Bld) [Mass/Vol] 14.8 g/dL Normal 12.0-16.0 [facility] Comment on above: Performed By: #### C BC #### [facility] [address] [place] [address] Dr. Nolan Biggs IG # 0.02 10e3/ul Normal 0.00-0.03 [facility] Comment on above: Performed By: #### C BC #### [facility] [address] [place] [address] Dr. Nolan Biggs IG % 0.3 % Normal 0.0-0.5 [facility] Comment on above: Performed By: #### C BC #### [facility] [address] [place] [address] Dr. Nolan Biggs LYMPH # 2.4 103/ul Normal 1.2-3.8 [facility] Comment on above: Performed By: #### C BC #### [facility] [address] [place] [address] Dr. Nolan Biggs Lymphocytes/100 WBC (Bld) 40.0 % Normal 20.5-60.0 [facility] Comment on above: Performed By: #### C BC #### [facility] [address] [place] [address] Dr. Nolan Biggs MANUAL DIFF REQ NO Normal [facility] Comment on above: Performed By: #### C BC #### [facility] [address] [place] [address] Dr. Nolan Biggs MCH (RBC) [Entitic mass] 30.9 pg Normal 26.7-34.0 [facility] Comment on above: Performed By: #### C BC #### [facility] [address] [place] [address] Dr. Nolan Biggs MCHC (RBC) [Mass/Vol] 33.2 g/dL Normal 29.9-35.2 [facility] Comment on above: Performed By: #### C BC #### [facility] [address] [place] [address] Dr. Nolan Biggs MCV (RBC) [Entitic vol] 93.1 fL Normal 81.0-99.0 [facility] Comment on above: Performed By: #### C BC #### [facility] [address] [place] [address] Dr. Nolan Biggs MONO # 0.5 103/ul Normal 0.3-0.8 [facility] Comment on above: Performed By: #### C BC #### [facility] [address] [place] [address] Dr. Nolan Biggs Monocytes/100 WBC (Bld) 8.4 % Normal 1.7-12.0 [facility] Comment on above: Performed By: #### C BC #### [facility] [address] [place] [address] Dr. Nolan Biggs NEUT # 2.9 103/ul Normal 1.4-6.5 [facility] Comment on above: Performed By: #### C BC #### [facility] [address] [place] [address] Dr. Nolan Biggs Neutrophils/100 WBC (Bld) 47.9 % Normal 43.0-75.0 [facility] Comment on above: Performed By: #### C BC #### [facility] [address] [place] [address] Dr. Nolan Biggs Platelet mean volume (Bld) [Entitic vol] 10.7 fL Normal 9.5-13.5 [facility] Comment on above: Performed By: #### C BC #### [facility] [address] [place] [address] Dr. Nolan Biggs PLT 298 103/ul Normal 150-450 [facility] Comment on above: Performed By: #### C BC #### [facility] [address] [place] [address] Dr. Nolan Biggs RBC 4.79 106/ul Normal 4.20-5.40 [facility] Comment on above: Performed By: #### C BC #### [facility] [address] [place] [address] Dr. Nolan Biggs WBC 6.0 103/ul Normal 4.0-11.0 [facility] Comment on above: Performed By: #### C BC #### [facility] [address] [place] [address] ABD/PELVIS WO CONon 09-13 CT ABD/PELVIS WO CON TECHNIQUE: CT abdom en and pelvis. Helically acquired axial images of the abdomen and pelvis from the diaphragm to the iliac crest and the iliac crest to the symphysis pubis. Sagittal and coronal multiplanar reconstructions. . HISTORY: Nausea and vomiting with abdominal pain COMPARISON: No comparison FINDINGS: The lung bases are clear. The heart size is normal. The liver, spleen, and pancreas appear unremarkable on this noncontrast examination. Patient is post cholecystectomy. Surgical clips are seen in the gallbladder fossa. 15 mm bilateral adrenal nodule is seen with density characteristics suggestive of benign adenomas. Bilateral kidneys have an unremarkable noncontrast appearance. There is no evidence for nephrolithiasis or hydronephrosis bilaterally. No ureteral calculus is seen bilaterally. The urinary bladder appears unremarkable. The stomach and duodenum appear unremarkable. Nonobstructive bowel pattern is seen. Normal-appearing appendix is visualized. Mild wall thickening of the colon is seen, without significant surrounding mesenteric fat stranding, suggestive of mild colitis. No significant free fluid or abnormal fluid collection is seen in the abdomen and pelvis. The vascular structures demonstrate normal caliber. Tiny fat-containing umbilical hernia is seen. No acute osseous abnormality seen. IMPRESSION: Mild wall thickening of the colon is seen, suggestive of mild (probably inflammatory) colitis. Normal-appearing appendix is visualized. Bilateral adrenal nodules. Prior cholecystectomy. Electronically authenticated by: LEILANI SOLOMON Date: 2021-09-13 21:13 Normal [facility] Covid-19 PCR ([facility])on 08-24 SARS-CoV-2 (COVID-19) RNA LINDSEY+probe Ql (Unsp spec) Not detected Normal NOT DETECTED [facility] Comment on above: Result Comment: When diagnostic testing is negative, the possibility of a false negative should be considered in the context of a patient's recent exposures and the presence of clinical signs and symptoms consistent with SARS-CoV-2. This test is not yet approved or cleared by the [place] FDA. When there are no FDA-approved or cleared tests available, and other criteria are met, FDA can make tests available under an emergency access mechanism called an Emergency Use Authorization (EUA). The EUA for this test is supported by the Master Motorcycle Technician of Health and Human Service's declaration that circumstances exist to justify the emergency use of in vitro diagnostics for the detection and/or diagnosis of the virus that causes COVID-19. This EUA will remain in effect for the duration of the COVID-19 declaration justifying emergency of IVDs, unless it is terminated or revoked by the FDA (after which the test may no longer be used). Performed By: #### C BC #### [facility] [address] [place] [address] Dr. Nolan Biggs ER URINE PROFILEon 2 Bilirubin Ql (U) SMALL Abnormal NEGATIVE [facility] Comment on above: Performed By: #### E RUR #### [facility] [address] [place] [address] Dr. Nolan Biggs Clarity (U) CLEAR Normal CLEAR [facility] Comment on above: Performed By: #### E RUR #### [facility] [address] [place] [address] Dr. Nolan Biggs Color (U) DK. YELLOW Normal YELLOW [facility] Comment on above: Performed By: #### E RUR #### [facility] [address] [place] [address] Dr. Nolan Biggs ERUAHD A micrscopic examina tion will be performed if indicated. Normal [facility] Comment on above: Performed By: #### E RUR #### [facility] [address] [place] [address] Dr. Nolan Biggs Glucose Ql (U) Negative Normal NEGATIVE [facility] Comment on above: Performed By: #### E RUR #### [facility] [address] [place] [address] Dr. Nolan Biggs Hemoglobin Ql (U) Negative Normal NEGATIVE [facility] Comment on above: Performed By: #### E RUR #### [facility] [address] [place] [address] Dr. Nolan Biggs Ketones Ql (U) Negative Normal NEGATIVE [facility] Comment on above: Performed By: #### E RUR #### [facility] [address] [place] [address] Dr. Nolan Biggs LEUKOCYTES Negative Normal NEGATIVE [facility] Comment on above: Performed By: #### E RUR #### [facility] [address] [place] [address] Dr. Nolan Biggs Nitrite Ql (U) Negative Normal NEGATIVE [facility] Comment on above: Performed By: #### E RUR #### [facility] [address] [place] [address] Dr. Nolan Biggs pH (U) 5.5 [pH] Normal 5-9 [facility] Comment on above: Performed By: #### E RUR #### [facility] [address] [place] [address] Dr. Nolan Biggs SPEC GRAVITY >=1.030 Abnormal 1.005-<=1.02 5 [facility] Comment on above: Performed By: #### E RUR #### [facility] [address] [place] [address] Dr. Nolan Biggs UA PROTEIN Negative Normal NEGATIVE/ TRACE [facility] Comment on above: Performed By: #### E RUR #### [facility] [address] [place] [address] Dr. Nolan Biggs UR MICRO IND NOT INDICATED Normal [facility] Comment on above: Performed By: #### E RUR #### [facility] [address] [place] [address] Dr. Nolan Biggs Urobilinogen Qn (U) 1.0 {Jan'U}/dL Normal 0.2 - 1. 0 [facility] Comment on above: Performed By: #### E RUR #### [facility] [address] [place] [address] Dr. Nolan Biggs INFLUENZA A AND B AGon 09-13 INFLUENZA A AG Negative Normal NEGATIVE SEE COMMENT [facility] Comment on above: Performed By: #### C BC #### [facility] [address] [place] [address] Dr. Nolan Biggs INFLUENZA B AG Negative Normal NEGATIVE SEE COMMENT [facility] Comment on above: Performed By: #### C BC #### [facility] [address] [place] [address] Dr. Nolan Biggs INTERNAL CONTROLS Within Normal Limits Normal Wi thin Normal Limits [facility] Comment on above: Performed By: #### C BC #### [facility] [address] [place] [address] Dr. Nolan Biggs LACTATE/LACTIC ACIDon 2021 Lactate [Moles/Vol] 0.4 mmol/L Normal 0.4-1.9 [facility] Comment on above: Performed By: #### C BC #### [facility] [address] [place] [address] Dr. Nolan Biggs LIPASEon 09-13-2021 Lipase [Catalytic activity/Vol] 63.0 U/L Critically low 73.0-393.0 [facility] Comment on above: Performed By: #### C MP, HSTROPN, LIPA #### [facility] [address] [place] [address] Dr. Nolan Biggs PROF 14(COMP METB)on 022 Albumin [Mass/Vol] 3.5 g/dL Normal 3.4-5.0 [facility] Comment on above: Performed By: #### C MP, HSTROPN, LIPA #### [facility] [address] [place] [address] Dr. Nolan Biggs Albumin/Globulin [Mass ratio] 0.8 {ratio} Normal [facility] Comment on above: Performed By: #### C MP, HSTROPN, LIPA #### [facility] [address] [place] [address] Dr. Nolan Biggs ALP [Catalytic activity/Vol] 83 U/L Normal 46-116 [facility] Comment on above: Performed By: #### C MP, HSTROPN, LIPA #### [facility] [address] [place] [address] Dr. Nolan Biggs ALT [Catalytic activity/Vol] 143 U/L Critically high 14-59 [facility] Comment on above: Performed By: #### C MP, HSTROPN, LIPA #### [facility] [address] [place] [address] Dr. Nolan Biggs Anion gap [Moles/Vol] 10.9 mmol/L Normal [facility] Comment on above: Performed By: #### C MP, HSTROPN, LIPA #### [facility] [address] [place] [address] Dr. Nolan Biggs AST [Catalytic activity/Vol] 82 U/L Critically high 15-37 [facility] Comment on above: Performed By: #### C MP, HSTROPN, LIPA #### [facility] [address] [place] [address] Dr. Nolan Biggs Bilirubin [Mass/Vol] 0.6 mg/dL Normal 0.2-1.0 [facility] Comment on above: Performed By: #### C MP, HSTROPN, LIPA #### [facility] [address] [place] [address] Dr. Nolan Biggs Calcium [Mass/Vol] 8.4 mg/dL Critically low 8.5-10.1 Th e [facility] Comment on above: Performed By: #### C MP, HSTROPN, LIPA #### [facility] [address] [place] [address] Dr. Nolan Biggs Chloride [Moles/Vol] 106 mmol/L Normal 98-107 [facility] Comment on above: Performed By: #### C MP, HSTROPN, LIPA #### [facility] [address] [place] [address] Dr. Nolan Biggs CO2 [Moles/Vol] 26.2 mmol/L Normal 21.0-32.0 [facility] Comment on above: Performed By: #### C MP, HSTROPN, LIPA #### [facility] [address] [place] [address] Dr. Nolan Biggs Creatinine [Mass/Vol] 0.82 mg/dL Normal 0.55-1.02 [facility] Comment on above: Performed By: #### C MP, HSTROPN, LIPA #### [facility] [address] [place] [address] Dr. Nolan Biggs EGFR-AF URUGUAYAN >60 Normal >=60 [facility] Comment on above: Performed By: #### C MP, HSTROPN, LIPA #### [facility] [address] [place] [address] Dr. Nolan Biggs EGFR-NON AF URUGUAYAN >60 Normal >=60 [facility] Comment on above: Performed By: #### C MP, HSTROPN, LIPA #### [facility] [address] [place] [address] Dr. Nolan Biggs Globulin (S) [Mass/Vol] 4.2 g/dL Normal T [facility] Comment on above: Performed By: #### C MP, HSTROPN, LIPA #### [facility] [address] [place] [address] Dr. Nolan Biggs Glucose [Mass/Vol] 112 mg/dL Critically high 74-106 T [facility] Comment on above: Performed By: #### C MP, HSTROPN, LIPA #### [facility] [address] [place] [address] Dr. Nolan Biggs Potassium [Moles/Vol] 4.1 mmol/L Normal 3.5-5.1 [facility] Comment on above: Performed By: #### C MP, HSTROPN, LIPA #### [facility] [address] [place] [address] Dr. Nolan Biggs Protein [Mass/Vol] 7.7 g/dL Normal 6.4-8.2 [facility] Comment on above: Performed By: #### C MP, HSTROPN, LIPA #### [facility] [address] [place] [address] Dr. Nolan Biggs Sodium [Moles/Vol] 139 mmol/L Normal 136-145 [facility] Comment on above: Performed By: #### C MP, HSTROPN, LIPA #### [facility] [address] [place] [address] Dr. Nolan Biggs Urea nitrogen [Mass/Vol] 11.0 mg/dL Normal 7.0-18.0 [facility] Comment on above: Performed By: #### C MP, HSTROPN, LIPA #### [facility] [address] [place] [address] Dr. Nolan Biggs Urea nitrogen/Creatinine [Mass ratio] 13.4 mg/mg Normal [facility] Comment on above: Performed By: #### C MP, HSTROPN, LIPA #### [facility] [address] [place] [address] Dr. Nolan Biggs PROTIMEon 09-13-2021 INR Coag (PPP) [Relative time] 1.00 {INR} Normal [facility] Comment on above: Performed By: #### C BC #### [facility] [address] [place] [address] Dr. Nolan Biggs INR GUIDELINES SEE BELOW Normal [facility] Comment on above: Result Comment: PATRICIA RED INR: 2.0 - 3.0 CONDITIONS NOT LISTED BELOW 2.5 - 3.5 FOR PROSTHETIC HEART VALVE REPLACEMENT 2.5 - 3.5 RECURRENT THROMBOSIS Performed By: #### C BC #### [facility] [address] [address] [address] Nolan Biggs PT Coag (PPP) [Time] 10.8 s Normal 9.0-11.6 [facility] Comment on above: Performed By: #### C BC #### [facility] [address] [address] [address] Nolan Biggs PTTon 09-13-2021 aPTT Coag (Bld) [Time] 27.3 s Normal 22.3-36.2 Th [facility] Comment on above: Performed By: #### C BC #### [facility] [address] [place] [address] Dr. Nolan Biggs TROPONIN, HIGH SENSITIVITYon 09-13-2021 HSTROP <4.0 Normal 4.0-51.3 [facility] Comment on above: Result Comment: CUT- OFF POINTS HAVE BEEN ESTABLISHED BASED ON THE FOURTH UNIVERSAL DEFINITIONS OF MYOCARDIAL INFARCTION. THE UPPER REFERENCE LIMIT (URL) OF TROPONIN, DEFINED THE 99TH PERCENTILE OF cTnI DISTRIBUTION IN A REFERENCE POPULATION, HAS BEEN CONFIRMED THE DECISION THRESHOLD FOR AR DIAGNOSIS. Performed By: #### C BC #### [facility] [address] [place] [address] Dr. Nolan Biggs Social History Date Type Detail Facility Start: 08-21-2023 Gender identity Identifies as female gender (finding) [facility] Work Phone: Start: 01-22-2023 End: 09-17-2023 Tobacco smoking status Heavy tobacco smoker (finding) [facility] Start: 01-22-2023 End: 08-27-2023 Alcohol intake Current drinker of alcohol (finding) [facility] Work Phone: Start: 01-22-2023 Alcohol Comment Soc[address] [facility] Work Phone: Start: 08-24-2014 End: 01-15-2023 Sex Assigned At Female [employer] [facility] [employer] Other Start: 01-15-2023 Alcohol intake Ex-drinker (finding) [facility] Work Phone: Start: 01-05-2023 End: 08-27-2023 Exposure to SARS-CoV-2 (event) Not sure [facility] Start: 12-21-2022 Tobacco smoking status IAIS Never smoked tobacco (finding) [facility] Start: 01-30-2014 End: 12-04-2022 Tobacco smoking status IAIS Smokes tobacco daily [facility] Start: 08-24-2014 End: 12-04-2022 Cigarettes smoked current (pack per day) - Reported 0.5 [facility] Start: 12-04-2022 End: 07-26-2023 Tobacco use and exposure Smokeless tobacco non-user [facility] Start: 11-13-2021 End: 09-08-2023 Tobacco smoking status NHIS Smoker (finding) [facility] Start: 01-31-2014 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 [employer] [facility] [employer] Other Comment on above: 10 cigs per day every day smoker Tobacco smoking status No Smoking Status Entered [facility] History of tobacco use Cigarette Smoker [facility] Tobacco smoking status Never [facility] NEGATED: Highlighted row [facility] Vital Signs Date Time Vital Sign Value Performing Clinician Facility 09-20-2023 10:55-0400 Body temperature 97.52 [degF] Jorge Mcintosh [facility] 09-20-2023 10:55-0400 Diastolic blood pressure 85 mm[Hg] Jorge Mcintosh [facility] 06-28-2024 10:55-0400 Heart rate 102 /min Jorge Mcintosh [facility] 09-20-2023 10:55-0400 Respiratory rate 97 /min Jorge Mcintosh [facility] 09-20-2023 10:55-0400 SaO2% (BldA) [Mass fraction] 99 % Jorge Mcintosh [facility] 09-20-2023 10:55-0400 Systolic blood pressure 166 mm[Hg] Jorge Mcintosh [facility] 09-17-2023 17:45-0400 Blood Pressure Location Dax Lira [facility] 09-17-2023 17:45-0400 Body temperature 98.6 [degF] Dax Zapatapsey [facility] 09-17-2023 17:45-0400 Diastolic blood pressure 88 mm[Hg] Dax Zapatapsey [facility] 09-17-2023 17:45-0400 Heart rate 92 /min Dax Lira [facility] 09-17-2023 17:45-0400 Respiratory rate 16 /min Dax Lira [facility] 09-17-2023 17:45-0400 SaO2% (BldA) [Mass fraction] 98 % Dax Lira [facility] 09-17-2023 17:45-0400 Systolic blood pressure 130 mm[Hg] Dax Pankaj [facility] 09-10-2023 14:06-0400 Diastolic blood pressure 61 mm[Hg] Benja Garcia DO Work Phone: [facility] 09-10-2023 14:06-0400 Systolic blood pressure 140 mm[Hg] Benja Lid DO Work Phone: [facility] [employer] 09-10-2023 14:02-0400 Body height 160 cm Benja Lid DO Work Phone: [facility] [employer] 09-10-2023 14:02-0400 Body mass index (BMI) [Ratio] 38.09 kg/m2 Benja Lid DO Work Phone: [facility] [employer] 09-10-2023 14:02-0400 Body temperature 98.29 [degF] Benja Garcia DO Work Phone: [facility] [employer] 09-10-2023 14:02-0400 Body weight 97.52 kg Benja Garcia DO Work Phone: [facility] [employer] 09-10-2023 14:02-0400 Heart rate 83 /min Benja Lid DO Work Phone: [facility] [employer] 09-10-2023 14:02-0400 Respiratory rate 17 /min Benja Lid DO Work Phone: [facility] [employer] 09-10-2023 14:02-0400 SaO2% (BldA) [Mass fraction] 97 % Benja Lid DO Work Phone: [facility] [employer] [facility] [employer] [facility] 09-09-2023 22:30-0400 Blood Pressure Location Jorge Mcintosh [facility] 09-09-2023 22:30-0400 Diastolic blood pressure 67 mm[Hg] Jorge Mcintosh [facility] 09-09-2023 22:30-0400 Heart rate 71 /min Jorge Mcintosh [facility] 09-09-2023 22:30-0400 Mean blood pressure 87 mm[Hg] Jorge Mcintosh [facility] 09-09-2023 22:30-0400 Respiratory rate 16 /min Jorge Arnaldo [facility] 09-09-2023 22:30-0400 SaO2% (BldA) [Mass fraction] 99 % Jorge Arnaldo [facility] 09-09-2023 22:30-0400 Systolic blood pressure 126 mm[Hg] Jorge Arnaldo [facility] 09-09-2023 21:30-0400 Diastolic blood pressure 76 mm[Hg] Jorge Arnaldo [facility] 09-09-2023 21:30-0400 Heart rate 80 /min Jorge Arnaldo [facility] 09-09-2023 21:30-0400 Mean blood pressure 96 mm[Hg] Jorge Arnaldo [facility] 09-09-2023 21:30-0400 SaO2% (BldA) [Mass fraction] 98 % Jorge Arnaldo [facility] 09-09-2023 21:30-0400 Systolic blood pressure 136 mm[Hg] Jorge Arnaldo [facility] 09-09-2023 21:00-0400 Diastolic blood pressure 62 mm[Hg] Jorge Arnaldo [facility] 09-09-2023 21:00-0400 Heart rate 79 /min Jorge Arnaldo [facility] 09-09-2023 21:00-0400 SaO2% (BldA) [Mass fraction] 94 % Jorge Arnaldo [facility] 09-09-2023 19:12-0400 Heart rate 96 /min Jorge Arnaldo [facility] 09-08-2023 18:37-0400 Body height 162.56 cm [facility] Work Phone: [facility] 09-08-2023 18:37-0400 Body temperature 98.3 [degF] [employer] Work Phone: [facility] 09-08-2023 18:37-0400 Body weight 116.3 kg [employer] Work Phone: [facility] 09-08-2023 18:37-0400 Diastolic blood pressure 89 mm[Hg] [employer] Work Phone: [facility] 09-08-2023 18:37-0400 Heart rate 97 /min [facility] Work Phone: [facility] 09-08-2023 18:37-0400 Respiratory rate 19 /min [facility] Work Phone: [facility] 09-08-2023 18:37-0400 SaO2% (BldA) [Mass fraction] 99 % [employer] Work Phone: [facility] 09-08-2023 18:37-0400 Systolic blood pressure 162 mm[Hg] [facility] Work Phone: [facility] 09-06-2023 21:10-0400 Body temperature 97.88 [degF] Pedro Pablo Chance [facility] 09-06-2023 21:10-0400 Diastolic blood pressure 82 mm[Hg] Pedro Pablo Chance [facility] 09-06-2023 21:10-0400 Heart rate 79 /min Pedro Pablo Chance [facility] 09-06-2023 21:10-0400 Respiratory rate 17 /min Pedro Pablo Chance [facility] 09-06-2023 21:10-0400 SaO2% (BldA) [Mass fraction] 98 % Pedro Pablo Chance [facility] 09-06-2023 21:10-0400 Systolic blood pressure 152 mm[Hg] Pedro Pablo Fletcher [facility] 09-02-2023 18:07-0400 Body temperature 97.88 [degF] Jorge Mcintosh [facility] 09-02-2023 18:07-0400 Diastolic blood pressure 79 mm[Hg] Jorge Mcintosh [facility] 09-02-2023 18:07-0400 Heart rate 94 /min Jorge Mcintosh [facility] 09-02-2023 18:07-0400 Respiratory rate 16 /min Jorge Mcintosh [facility] 09-02-2023 18:07-0400 SaO2% (BldA) [Mass fraction] 96 % Jorge Mcintosh [facility] 09-02-2023 18:07-0400 Systolic blood pressure 136 mm[Hg] Jorge Mcintosh [facility] 08-30-2023 19:17-0400 Diastolic blood pressure 92 mm[Hg] Nikhil Tubbs [facility] 08-30-2023 19:17-0400 Heart rate 94 /min Nikhil Arley [facility] 08-30-2023 19:17-0400 Mean blood pressure 112 mm[Hg] Nikhil Arley [facility] 08-30-2023 19:17-0400 Respiratory rate 17 /min Nikhil Arley [facility] 08-30-2023 19:17-0400 SaO2% (BldA) [Mass fraction] 97 % Nikhil Arley [facility] 08-30-2023 19:17-0400 Systolic blood pressure 151 mm[Hg] Nikhil Arley [facility] 08-30-2023 18:13-0400 Body temperature 98.24 [degF] Nikhil Tubbs [facility] 08-30-2023 18:13-0400 Diastolic blood pressure 100 mm[Hg] Nikhil Tubbs [facility] 08-30-2023 18:13-0400 Heart rate 92 /min Nikhil Tubbs [facility] 08-30-2023 18:13-0400 Respiratory rate 18 /min Nikhil Tubbs [facility] 08-30-2023 18:13-0400 SaO2% (BldA) [Mass fraction] 100 % Nikhil Tubbs [facility] 08-30-2023 18:13-0400 Systolic blood pressure 165 mm[Hg] Nikhil Tubbs [facility] 08-27-2023 13:20-0400 Body height 160 cm Chirag Oviedo 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 Work Phone: [facility] 08-27-2023 13:20-0400 Body mass index (BMI) [Ratio] 44.29 kg/m2 Chirag Oviedo 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 Work Phone: [facility] 08-27-2023 13:20-0400 Body weight 113.4 kg Chirag Oviedo 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 Work Phone: [facility] 08-27-2023 13:20-0400 Diastolic blood pressure 88 mm[Hg] Chirag Oviedo 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 Work Phone: [facility] 08-27-2023 13:20-0400 Heart rate 88 /min Chirag Oviedo 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 Work Phone: [facility] 08-27-2023 13:20-0400 Respiratory rate 18 /min Chirag Oviedo 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 Work Phone: [facility] 08-27-2023 13:20-0400 Systolic blood pressure 132 mm[Hg] Chirag Oviedo 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 Work Phone: [facility] 08-21-2023 10:06-0400 Body temperature 98.8 [degF] Elke Adams MD Work Phone: [facility] 08-21-2023 10:06-0400 Diastolic blood pressure 62 mm[Hg] Elke Adams MD Work Phone: [facility] 08-21-2023 10:06-0400 Respiratory rate 16 /min Elke Adams MD Work Phone: [facility] 08-21-2023 10:06-0400 SaO2% (BldA) [Mass fraction] 93 % Elke Adams MD Work Phone: [facility] 08-21-2023 10:06-0400 Systolic blood pressure 116 mm[Hg] Elke Adams MD Work Phone: [facility] 08-21-2023 06:30-0400 Body height 160 cm Elke Adams MD Work Phone: [facility] 08-21-2023 06:30-0400 Body mass index (BMI) [Ratio] 44.32 kg/m2 Elke Adams MD Work Phone: [facility] 08-21-2023 06:30-0400 Body weight 113.5 kg Elke Adams MD Work Phone: [facility] 08-21-2023 06:30-0400 Heart rate 87 /min Elke Adams MD Work Phone: [facility] 08-16-2023 00:55-0400 Diastolic blood pressure 90 mm[Hg] Balbina Bryant [facility] 08-16-2023 00:55-0400 Heart rate 64 /min [facility] 08-16-2023 00:55-0400 Mean blood pressure 111 mm[Hg] [facility] 08-16-2023 00:55-0400 Respiratory rate 15 /min [facility] 08-16-2023 00:55-0400 SaO2% (BldA) [Mass fraction] 93 % [facility] 08-16-2023 00:55-0400 Systolic blood pressure 153 mm[Hg] [facility] 08-16-2023 00:07-0400 Diastolic blood pressure 88 mm[Hg] [facility] 08-16-2023 00:07-0400 Heart rate 73 /min [facility] 08-16-2023 00:07-0400 Mean blood pressure 105 mm[Hg] [facility] 08-16-2023 00:07-0400 Respiratory rate 17 /min [facility] 08-16-2023 00:07-0400 Systolic blood pressure 138 mm[Hg] [facility] 08-15-2023 23:42-0400 Diastolic blood pressure 80 mm[Hg] [facility] 08-15-2023 23:42-0400 Heart rate 79 /min [facility] 08-15-2023 23:42-0400 Mean blood pressure 96 mm[Hg] [facility] 08-15-2023 23:42-0400 Respiratory rate 15 /min [facility] 08-15-2023 23:42-0400 SaO2% (BldA) [Mass fraction] 94 % [facility] 08-15-2023 23:42-0400 Systolic blood pressure 129 mm[Hg] [facility] 08-15-2023 22:22-0400 Body temperature 98.06 [degF] [facility] 08-15-2023 22:22-0400 Heart rate 88 /min [facility] 08-14-2023 15:16-0400 Diastolic blood pressure 58 mm[Hg] Domenic Sher [facility] 08-14-2023 15:16-0400 Heart rate 86 /min Domenic Sher [facility] 08-14-2023 15:16-0400 Mean blood pressure 88 mm[Hg] Domenic Sher [facility] 08-14-2023 15:16-0400 Respiratory rate 16 /min Domenic Sher [facility] 08-14-2023 15:16-0400 Systolic blood pressure 148 mm[Hg] Domenic Sher [facility] 08-12-2023 20:51-0400 Body temperature 98.24 [degF] Kaylinn Dokken [facility] 08-12-2023 20:51-0400 Diastolic blood pressure 83 mm[Hg] Kaylinn Dokken [facility] 08-12-2023 20:51-0400 Heart rate 83 /min Kaylinn Dokken [facility] 08-12-2023 20:51-0400 Respiratory rate 18 /min Kaylinn Dokken [facility] 08-12-2023 20:51-0400 SaO2% (BldA) [Mass fraction] 95 % Kaylinn Dokken [facility] 08-12-2023 20:51-0400 Systolic blood pressure 146 mm[Hg] Kaylinn Dokken [facility] 08-09-2023 23:20-0400 Body temperature 97.7 [degF] Keke Payne MD Work Phone: [facility] 08-09-2023 23:20-0400 Diastolic blood pressure 78 mm[Hg] Keke Payne MD Work Phone: [facility] 08-09-2023 23:20-0400 Heart rate 79 /min Keke Payne MD Work Phone: [facility] 08-09-2023 23:20-0400 Respiratory rate 18 /min Keke Payne MD Work Phone: [facility] 08-09-2023 23:20-0400 SaO2% (BldA) [Mass fraction] 95 % Keke Payne MD Work Phone: [facility] 08-09-2023 23:20-0400 Systolic blood pressure 151 mm[Hg] Keke Payne MD Work Phone: [facility] 08-09-2023 21:46-0400 Body mass index (BMI) [Ratio] 44.29 kg/m2 Keke Payne MD Work Phone: [facility] 08-09-2023 21:46-0400 Body weight 113.4 kg Keke Payne MD Work Phone: [facility] 08-05-2023 20:15-0400 Body temperature 97.88 [degF] Pedro Pablo Chance [facility] 08-05-2023 20:15-0400 Diastolic blood pressure 85 mm[Hg] Pedro Pablo Chance [facility] 08-05-2023 20:15-0400 Heart rate 98 /min Pedro Pablo Chance [facility] 08-05-2023 20:15-0400 Respiratory rate 16 /min Pedro Pablo Chance [facility] 08-05-2023 20:15-0400 SaO2% (BldA) [Mass fraction] 94 % Pedro Pablo Chance [facility] 08-05-2023 20:15-0400 Systolic blood pressure 150 mm[Hg] Pedro Pablo Fletcher [facility] 08-02-2023 11:52-0400 Body temperature 97.88 [degF] Nikhil Tubbs [facility] 08-02-2023 11:52-0400 Diastolic blood pressure 68 mm[Hg] Nikhil Tubbs [facility] 08-02-2023 11:52-0400 Heart rate 86 /min Nikhil Tubbs [facility] 08-02-2023 11:52-0400 Respiratory rate 20 /min Nikhil Tubbs [facility] 08-02-2023 11:52-0400 SaO2% (BldA) [Mass fraction] 93 % Nikhil Tubbs [facility] 08-02-2023 11:52-0400 Systolic blood pressure 161 mm[Hg] Nikhil uTbbs [facility] 07-31-2023 15:29-0400 Diastolic blood pressure 86 mm[Hg] [facility] 07-31-2023 15:29-0400 Heart rate 75 /min [facility] 07-31-2023 15:29-0400 Mean blood pressure 103 mm[Hg] [facility] 07-31-2023 15:29-0400 Respiratory rate 16 /min [facility] 07-31-2023 15:29-0400 SaO2% (BldA) [Mass fraction] 98 % [facility] 07-31-2023 15:29-0400 Systolic blood pressure 138 mm[Hg] [facility] 07-31-2023 14:22-0400 Body temperature 98.06 [degF] [facility] 07-31-2023 14:22-0400 Diastolic blood pressure 87 mm[Hg] [facility] 07-31-2023 14:22-0400 Heart rate 88 /min [facility] 07-31-2023 14:22-0400 Mean blood pressure 101 mm[Hg] [facility] 07-31-2023 14:22-0400 Respiratory rate 18 /min [facility] 07-31-2023 14:22-0400 SaO2% (BldA) [Mass fraction] 96 % [facility] 07-31-2023 14:22-0400 Systolic blood pressure 130 mm[Hg] [facility] 07-26-2023 11:06-0400 Body temperature 98.24 [degF] Jorge Mcintosh [facility] 07-26-2023 11:06-0400 Diastolic blood pressure 66 mm[Hg] Jorge Mcintosh [facility] 07-26-2023 11:06-0400 Heart rate 83 /min Jorge Mcintosh [facility] 07-26-2023 11:06-0400 Respiratory rate 19 /min Jorge Mcintosh [facility] 07-26-2023 11:06-0400 SaO2% (BldA) [Mass fraction] 97 % Jorge Mcintosh [facility] 07-26-2023 11:06-0400 Systolic blood pressure 119 mm[Hg] Jorge Mcintosh [facility] 07-17-2023 09:43-0400 Diastolic blood pressure 90 mm[Hg] Cheyanne Rosas [facility] 07-17-2023 09:43-0400 Mean blood pressure 107 mm[Hg] Cheyanne Rosas [facility] 07-17-2023 09:43-0400 Systolic blood pressure 140 mm[Hg] Cheyanne Rosas [facility] 07-17-2023 07:48-0400 Blood Pressure Location Cheyanne Rosas [facility] 07-17-2023 07:48-0400 Body temperature 97.7 [degF] Cheyanne Rosas [facility] 07-17-2023 07:48-0400 Diastolic blood pressure 78 mm[Hg] Cheyanne Rosas [facility] 07-17-2023 07:48-0400 Heart rate 91 /min Cheyanne Rosas [facility] 07-17-2023 07:48-0400 Respiratory rate 18 /min Cheyanne Rosas [facility] 07-17-2023 07:48-0400 SaO2% (BldA) [Mass fraction] 97 % Cheyanne Rosas [facility] 07-17-2023 07:48-0400 Systolic blood pressure 144 mm[Hg] Cheyanne Rosas [facility] 07-15-2023 13:42-0400 Diastolic blood pressure 86 mm[Hg] Dory Shepherd [facility] 07-15-2023 13:42-0400 Heart rate 76 /min Dory Shepherd [facility] 07-15-2023 13:42-0400 Mean blood pressure 103 mm[Hg] Dory Shepherd [facility] 07-15-2023 13:42-0400 Respiratory rate 15 /min Dory Shepherd [facility] 07-15-2023 13:42-0400 Systolic blood pressure 138 mm[Hg] Dory Shepherd [facility] 07-14-2023 11:37-0400 Body temperature 97.52 [degF] Nikhil Arley [facility] 07-14-2023 11:37-0400 Diastolic blood pressure 80 mm[Hg] Nikhil Arley [facility] 07-14-2023 11:37-0400 Heart rate 98 /min Nikhil Tubbs [facility] 07-14-2023 11:37-0400 Respiratory rate 18 /min Nikhil Tubbs [facility] 07-14-2023 11:37-0400 SaO2% (BldA) [Mass fraction] 99 % Nikhil Arley [facility] 07-14-2023 11:37-0400 Systolic blood pressure 124 mm[Hg] Nikhil Arley [facility] 07-11-2023 09:23-0400 Body temperature 98.24 [degF] [facility] 07-11-2023 09:23-0400 Diastolic blood pressure 82 mm[Hg] [facility] 07-11-2023 09:23-0400 Heart rate 92 /min [facility] 07-11-2023 09:23-0400 Respiratory rate 18 /min [facility] 07-11-2023 09:23-0400 SaO2% (BldA) [Mass fraction] 99 % [facility] 07-11-2023 09:23-0400 Systolic blood pressure 151 mm[Hg] [facility] 07-06-2023 18:22-0400 Body temperature 97.88 [degF] [facility] 07-06-2023 18:22-0400 Diastolic blood pressure 99 mm[Hg] [facility] 07-06-2023 18:22-0400 Heart rate 90 /min [facility] 07-06-2023 18:22-0400 Respiratory rate 18 /min [facility] 07-06-2023 18:22-0400 SaO2% (BldA) [Mass fraction] 97 % [facility] 07-06-2023 18:22-0400 Systolic blood pressure 159 mm[Hg] [facility] 07-04-2023 10:35-0400 Body height 160.02 cm Services [employer] [facility] Work Phone: [facility] 07-04-2023 10:35-0400 Body weight 117.5 kg [facility] Work Phone: [facility] 07-04-2023 10:34-0400 Body temperature 97.5 [degF] [facility] Work Phone: [facility] 07-04-2023 10:34-0400 Diastolic blood pressure 78 mm[Hg] [facility] Work Phone: [facility] 07-04-2023 10:34-0400 Heart rate 98 /min [facility] Work Phone: [facility] 07-04-2023 10:34-0400 Respiratory rate 22 /min [facility] Work Phone: [facility] 07-04-2023 10:34-0400 SaO2% (BldA) [Mass fraction] 98 % [facility] Work Phone: [facility] 07-04-2023 10:34-0400 Systolic blood pressure 173 mm[Hg] [facility] Work Phone: [facility] 06-29-2023 13:37-0400 Body temperature 98.24 [degF] Nikhil Arley [facility] 06-29-2023 13:37-0400 Diastolic blood pressure 89 mm[Hg] Nikhil Arley [facility] 06-29-2023 13:37-0400 Heart rate 84 /min Nikhil Arley [facility] 06-29-2023 13:37-0400 Respiratory rate 16 /min Nikhil Arley [facility] 06-29-2023 13:37-0400 SaO2% (BldA) [Mass fraction] 97 % Nikhil Arley [facility] 06-29-2023 13:37-0400 Systolic blood pressure 153 mm[Hg] Nikhil Arley [facility] 06-27-2023 11:52-0400 Body temperature 97.7 [degF] Nikhil Arley [facility] 06-27-2023 11:52-0400 Diastolic blood pressure 82 mm[Hg] Nikhil Arley [facility] 06-27-2023 11:52-0400 Heart rate 87 /min Nikhil Arley [facility] 06-27-2023 11:52-0400 Respiratory rate 18 /min Nikhil Arley [facility] 06-27-2023 11:52-0400 SaO2% (BldA) [Mass fraction] 96 % Nikhil Arley [facility] 06-27-2023 11:52-0400 Systolic blood pressure 146 mm[Hg] Nikhil Arley [facility] 06-26-2023 16:39-0400 Body height 160.02 cm ELIZABETH Ferrell Work Phone: [facility] 06-26-2023 16:39-0400 Body temperature 97.6 [degF] ELIZABETH Ferrell Work Phone: [facility] 06-26-2023 16:39-0400 Body weight 117 kg ELIZABETH Ferrell Work Phone: [facility] 06-26-2023 16:39-0400 Diastolic blood pressure 72 mm[Hg] ELIZABETH Ferrell Work Phone: [facility] 06-26-2023 16:39-0400 Heart rate 92 /min 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Radha Ferrell Work Phone: [facility] 06-26-2023 16:39-0400 Respiratory rate 21 /min 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Radha Ferrell Work Phone: [facility] 06-26-2023 16:39-0400 SaO2% (BldA) [Mass fraction] 97 % ELIZAEBTH Ferrell Work Phone: [facility] 06-26-2023 16:39-0400 Systolic blood pressure 139 mm[Hg] ELIZABETH Ferrell Work Phone: [facility] 06-24-2023 11:30-0400 Diastolic blood pressure 78 mm[Hg] [facility] 06-24-2023 11:30-0400 Heart rate 78 /min [facility] 06-24-2023 11:30-0400 Mean blood pressure 87 mm[Hg] [facility] 06-24-2023 11:30-0400 Respiratory rate 18 /min [facility] 06-24-2023 11:30-0400 SaO2% (BldA) [Mass fraction] 97 % [facility] 06-24-2023 11:30-0400 Systolic blood pressure 106 mm[Hg] [facility] 06-24-2023 10:30-0400 Diastolic blood pressure 75 mm[Hg] [facility] 06-24-2023 10:30-0400 Heart rate 80 /min [facility] 06-24-2023 10:30-0400 Mean blood pressure 98 mm[Hg] [facility] 06-24-2023 10:30-0400 Systolic blood pressure 143 mm[Hg] [facility] 06-24-2023 09:45-0400 Body temperature 97.7 [degF] [facility] 06-24-2023 09:45-0400 Diastolic blood pressure 84 mm[Hg] [facility] 06-24-2023 09:45-0400 Heart rate 103 /min [facility] 06-24-2023 09:45-0400 Respiratory rate 17 /min [facility] 06-24-2023 09:45-0400 SaO2% (BldA) [Mass fraction] 97 % [facility] 06-24-2023 09:45-0400 Systolic blood pressure 137 mm[Hg] [facility] 06-22-2023 19:05-0400 Diastolic blood pressure 95 mm[Hg] Nikhil Tubbs [facility] 06-22-2023 19:05-0400 Heart rate 94 /min Nikhil Tubbs [facility] 06-22-2023 19:05-0400 Mean blood pressure 108 mm[Hg] Nikhil Tubbs [facility] 06-22-2023 19:05-0400 SaO2% (BldA) [Mass fraction] 94 % Nikhil Tubbs [facility] 06-22-2023 19:05-0400 Systolic blood pressure 135 mm[Hg] Nikhil Tubbs [facility] 06-22-2023 18:02-0400 Diastolic blood pressure 76 mm[Hg] Nikhil Arley [facility] 06-22-2023 18:02-0400 Heart rate 95 /min Nikhil Arley [facility] 06-22-2023 18:02-0400 Mean blood pressure 93 mm[Hg] Nikhil Arley [facility] 06-22-2023 18:02-0400 Systolic blood pressure 126 mm[Hg] Nikhil Arley [facility] 06-22-2023 17:00-0400 Blood Pressure Location Nikhil Arley [facility] 06-22-2023 17:00-0400 Diastolic blood pressure 80 mm[Hg] Nikhil Arley [facility] 06-22-2023 17:00-0400 Heart rate 93 /min Nikhil Arley [facility] 06-22-2023 17:00-0400 Mean blood pressure 97 mm[Hg] Nikhil Arley [facility] 06-22-2023 17:00-0400 Respiratory rate 18 /min Nikhil Arley [facility] 06-22-2023 17:00-0400 SaO2% (BldA) [Mass fraction] 96 % Nikhil Arley [facility] 06-22-2023 17:00-0400 Systolic blood pressure 130 mm[Hg] Nikhil Arley [facility] 06-22-2023 16:00-0400 SaO2% (BldA) [Mass fraction] 98 % Nikhil Arley [facility] 06-22-2023 15:20-0400 Respiratory rate 17 /min Nikhil Arley [facility] 06-22-2023 14:21-0400 Body temperature 98.24 [degF] Nikhil Tubbs [facility] 06-22-2023 14:21-0400 Heart rate 109 /min Nikhil Tubbs [facility] 06-22-2023 14:21-0400 Respiratory rate 16 /min Nikhil Tubbs [facility] 06-15-2023 18:05-0400 Body temperature 97.7 [degF] [facility] 06-15-2023 18:05-0400 Diastolic blood pressure 99 mm[Hg] [facility] 06-15-2023 18:05-0400 Heart rate 79 /min [facility] 06-15-2023 18:05-0400 Respiratory rate 18 /min [facility] 06-15-2023 18:05-0400 SaO2% (BldA) [Mass fraction] 99 % [facility] 06-15-2023 18:05-0400 Systolic blood pressure 125 mm[Hg] [facility] 06-15-2023 16:03-0400 Diastolic blood pressure 80 mm[Hg] Slime Oberhauser DO Work Phone: [facility] 06-15-2023 16:03-0400 Heart rate 84 /min Slime Oberhauser DO Work Phone: [facility] 06-15-2023 16:03-0400 Respiratory rate 16 /min Slime Oberhauser DO Work Phone: [facility] 06-15-2023 16:03-0400 SaO2% (BldA) [Mass fraction] 98 % Slime Oberhauser DO Work Phone: [facility] 06-15-2023 16:03-0400 Systolic blood pressure 128 mm[Hg] Lsime Oberhauser DO Work Phone: [facility] 06-15-2023 14:37-0400 Body height 160 cm Slime Oberhauser DO Work Phone: [facility] 06-15-2023 14:37-0400 Body mass index (BMI) [Ratio] 44.29 kg/m2 Slime Oberhauser DO Work Phone: [facility] 06-15-2023 14:37-0400 Body temperature 97 [degF] Slime Oberhauser DO Work Phone: [facility] 06-15-2023 14:37-0400 Body weight 113.4 kg Slime Oberhauser DO Work Phone: [facility] 06-11-2023 18:54-0400 Body temperature 98.24 [degF] Kaylinn Dokken [facility] 06-11-2023 18:54-0400 Diastolic blood pressure 80 mm[Hg] Kaylinn Dokken [facility] 06-11-2023 18:54-0400 Heart rate 92 /min Kaylinn Dokken [facility] 06-11-2023 18:54-0400 Respiratory rate 16 /min Kaylinn Dokken [facility] 06-11-2023 18:54-0400 SaO2% (BldA) [Mass fraction] 98 % Kaylinn Dokken [facility] 06-11-2023 18:54-0400 Systolic blood pressure 135 mm[Hg] Kaylinn Dokken [facility] 06-08-2023 18:35-0400 Diastolic blood pressure 86 mm[Hg] Allyson Griffiths DO Work Phone: [facility] 06-08-2023 18:35-0400 Heart rate 86 /min Allyson Griffiths DO Work Phone: [facility] 06-08-2023 18:35-0400 Respiratory rate 16 /min Allyson Griffiths DO Work Phone: [facility] 06-08-2023 18:35-0400 SaO2% (BldA) [Mass fraction] 98 % Allyson Griffiths DO Work Phone: [facility] 06-08-2023 18:35-0400 Systolic blood pressure 135 mm[Hg] Allyson Griffiths DO Work Phone: [facility] 06-08-2023 17:41-0400 Body height 160 cm Allyson Griffiths DO Work Phone: [facility] 06-08-2023 17:41-0400 Body mass index (BMI) [Ratio] 44.29 kg/m2 Allyson Griffiths DO Work Phone: [facility] 06-08-2023 17:41-0400 Body temperature 97.81 [degF] Allyson Griffiths DO Work Phone: [facility] 06-08-2023 17:41-0400 Body weight 113.4 kg Allyson Griffiths DO Work Phone: [facility] 06-05-2023 08:13-0400 Body height 160 cm Elke Adams MD Work Phone: [facility] 06-05-2023 08:13-0400 Body mass index (BMI) [Ratio] 44.29 kg/m2 Elke Adams MD Work Phone: [facility] 06-05-2023 08:13-0400 Body weight 113.4 kg Elke Adams MD Work Phone: [facility] 06-05-2023 08:13-0400 Diastolic blood pressure 88 mm[Hg] Elke Adams MD Work Phone: [facility] 06-05-2023 08:13-0400 Heart rate 85 /min Elke Adams MD Work Phone: [facility] 06-05-2023 08:13-0400 Respiratory rate 20 /min Elke Adams MD Work Phone: [facility] 06-05-2023 08:13-0400 Systolic blood pressure 133 mm[Hg] Elke Adams MD Work Phone: [facility] 06-03-2023 19:07-0400 Body temperature 98.06 [degF] Jorge Mcintosh [facility] 06-03-2023 19:07-0400 Diastolic blood pressure 88 mm[Hg] Jorge Mcintosh [facility] 06-03-2023 19:07-0400 Heart rate 71 /min Jorge Mcintosh [facility] 06-03-2023 19:07-0400 Respiratory rate 16 /min Jorge Mcintosh [facility] 06-03-2023 19:07-0400 SaO2% (BldA) [Mass fraction] 96 % Jorge Mcintosh [facility] 06-03-2023 19:07-0400 Systolic blood pressure 132 mm[Hg] Jorge Mcintosh [facility] 06-01-2023 16:07-0500 Diastolic blood pressure 81 mm[Hg] 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 Joshua Mariaelena Work Phone: [facility] 06-01-2023 16:07-0500 Heart rate 76 /min 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 Joshua Mariaelena Work Phone: [facility] 06-01-2023 16:07-0500 Respiratory rate 18 /min 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 Joshua Mariaelena Work Phone: [facility] 06-01-2023 16:07-0500 SaO2% (BldA) [Mass fraction] 96 % 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 Joshua Mariaelena Work Phone: [facility] 06-01-2023 16:07-0500 Systolic blood pressure 141 mm[Hg] ELIZABETH Ferrell Work Phone: [facility] 06-01-2023 11:49-0500 Body height 160.02 cm ELIZABETH Ferrell Work Phone: [facility] 06-01-2023 11:49-0500 Body temperature 97.9 [degF] ELIZABETH Ferrell Work Phone: [facility] 06-01-2023 11:49-0500 Body weight 97.52 kg ELIZABETH Ferrell Work Phone: [facility] 05-31-2023 18:12-0500 Diastolic blood pressure 104 mm[Hg] Jorge Mcintosh [facility] 05-31-2023 18:12-0500 Heart rate 71 /min Jorge Mcintosh [facility] 05-31-2023 18:12-0500 Mean blood pressure 117 mm[Hg] Jorge Mcintosh [facility] 05-31-2023 18:12-0500 Respiratory rate 18 /min Jorge Mcintosh [facility] 05-31-2023 18:12-0500 SaO2% (BldA) [Mass fraction] 97 % Jorge Mcintosh [facility] 05-31-2023 18:12-0500 Systolic blood pressure 143 mm[Hg] Jorge Rodrigueze [facility] 05-31-2023 17:01-0500 Diastolic blood pressure 70 mm[Hg] Jorge Mcintosh [facility] 05-31-2023 17:01-0500 Heart rate 85 /min Jorge Mcintosh [facility] 05-31-2023 17:01-0500 Mean blood pressure 91 mm[Hg] Jorge Mcintosh [facility] 05-31-2023 17:01-0500 Respiratory rate 18 /min Jorge Mcintosh [facility] 05-31-2023 17:01-0500 SaO2% (BldA) [Mass fraction] 96 % Jorge Mcintosh [facility] 05-31-2023 17:01-0500 Systolic blood pressure 133 mm[Hg] Jorge Mcintosh [facility] 05-31-2023 16:41-0500 Body temperature 98.6 [degF] Jorge Mcintosh [facility] 05-31-2023 16:41-0500 Diastolic blood pressure 91 mm[Hg] Jorge Mcintosh [facility] 05-31-2023 16:41-0500 Heart rate 88 /min Jorge Mcintosh [facility] 05-31-2023 16:41-0500 Systolic blood pressure 155 mm[Hg] Jorge Mcintosh [facility] 05-26-2023 19:35-0500 Body temperature 97.7 [degF] Pedro Pablo Chance [facility] 05-26-2023 19:35-0500 Diastolic blood pressure 81 mm[Hg] Pedro Pablo Chance [facility] 05-26-2023 19:35-0500 Heart rate 94 /min Pedro Pablo Chance [facility] 05-26-2023 19:35-0500 Respiratory rate 16 /min Pedro Pablo Chance [facility] 05-26-2023 19:35-0500 SaO2% (BldA) [Mass fraction] 98 % Pedro Pablo Fletcher [facility] 05-26-2023 19:35-0500 Systolic blood pressure 147 mm[Hg] Pedro Pablo Fletcher [facility] 05-25-2023 14:00-0500 Body height 160.02 cm 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Radha Carranzamond Work Phone: [facility] 05-25-2023 14:00-0500 Body temperature 97.7 [degF] ELIZABETH Carranzamond Work Phone: [facility] 05-25-2023 14:00-0500 Body weight 116 kg 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Radha Lewis Mariaelena Work Phone: [facility] 05-25-2023 14:00-0500 Diastolic blood pressure 86 mm[Hg] 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Radha EllingtonJoshua Mariaelena Work Phone: [facility] 05-25-2023 14:00-0500 Heart rate 89 /min 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Radha EllingtonJoshua Mariaelena Work Phone: [facility] 05-25-2023 14:00-0500 Respiratory rate 16 /min 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 Joshua Mariaelena Work Phone: [facility] 05-25-2023 14:00-0500 SaO2% (BldA) [Mass fraction] 96 % 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Radha EllingtonJoshua Mariaelena Work Phone: [facility] 05-25-2023 14:00-0500 Systolic blood pressure 134 mm[Hg] 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Radha EllingtonJoshua Mariaelena Work Phone: [facility] 05-24-2023 19:20-0500 Body temperature 97.7 [degF] Nikhil Tubbs [facility] 05-24-2023 19:20-0500 Diastolic blood pressure 95 mm[Hg] Nikhil Tubbs [facility] 05-24-2023 19:20-0500 Heart rate 98 /min Nikhil Tubbs [facility] 05-24-2023 19:20-0500 Respiratory rate 16 /min Nikhil Tubbs [facility] 05-24-2023 19:20-0500 SaO2% (BldA) [Mass fraction] 96 % Nikhil Tubbs [facility] 05-24-2023 19:20-0500 Systolic blood pressure 151 mm[Hg] Nikhil Tubbs [facility] 05-19-2023 12:01-0500 Body height 160.02 cm PHYSICIAN NO [facility] 05-19-2023 12:01-0500 Body temperature 98.1 [degF] PHYSICIAN NO [facility] 05-19-2023 12:01-0500 Body weight 115 kg PHYSICIAN NO [facility] 05-19-2023 12:01-0500 Diastolic blood pressure 80 mm[Hg] PHYSICIAN NO [facility] 05-19-2023 12:01-0500 Heart rate 97 /min PHYSICIAN NO [facility] 05-19-2023 12:01-0500 Respiratory rate 18 /min PHYSICIAN NO [facility] 05-19-2023 12:01-0500 SaO2% (BldA) [Mass fraction] 98 % PHYSICIAN NO [facility] 05-19-2023 12:01-0500 Systolic blood pressure 165 mm[Hg] PHYSICIAN NO [facility] 05-16-2023 16:20-0500 Body temperature 98.06 [degF] Nikhil Tubbs [facility] 05-16-2023 16:20-0500 Diastolic blood pressure 93 mm[Hg] Nikhil Tubbs [facility] 05-16-2023 16:20-0500 Heart rate 86 /min Nikhil Tubbs [facility] 05-16-2023 16:20-0500 Respiratory rate 16 /min Nikhil Tubbs [facility] 05-16-2023 16:20-0500 SaO2% (BldA) [Mass fraction] 100 % Nikhil Tubbs [facility] 05-16-2023 16:20-0500 Systolic blood pressure 162 mm[Hg] Nikhil Tubbs [facility] 05-14-2023 10:24-0500 Body temperature 97.52 [degF] Jorge Mcintosh [facility] 05-14-2023 10:24-0500 Diastolic blood pressure 86 mm[Hg] Jorge Mcintosh [facility] 05-14-2023 10:24-0500 Heart rate 85 /min Jorge Mcintosh [facility] 05-14-2023 10:24-0500 Respiratory rate 18 /min Jorge Mcintosh [facility] 05-14-2023 10:24-0500 SaO2% (BldA) [Mass fraction] 96 % Jorge Mcintosh [facility] 05-14-2023 10:24-0500 Systolic blood pressure 143 mm[Hg] Jorge Mcintosh [facility] 05-12-2023 10:19-0500 Body temperature 97.88 [degF] Nikhil Tubbs [facility] 05-12-2023 10:19-0500 Diastolic blood pressure 107 mm[Hg] Nikhil Arley [facility] 05-12-2023 10:19-0500 Heart rate 82 /min Nikhil Tubbs [facility] 05-12-2023 10:19-0500 Respiratory rate 18 /min Nikhil Tubbs [facility] 05-12-2023 10:19-0500 SaO2% (BldA) [Mass fraction] 96 % Nikhil Tubbs [facility] 05-12-2023 10:19-0500 Systolic blood pressure 156 mm[Hg] Nikhil Tubbs [facility] 05-11-2023 16:23-0500 Body temperature 97.88 [degF] Jorge Mcintosh [facility] 05-11-2023 16:23-0500 Diastolic blood pressure 102 mm[Hg] Jorge Mcintosh [facility] 05-11-2023 16:23-0500 Heart rate 89 /min Jorge Mcintosh [facility] 05-11-2023 16:23-0500 Respiratory rate 16 /min Jorge Mcintosh [facility] 05-11-2023 16:23-0500 SaO2% (BldA) [Mass fraction] 97 % Jorge Mcintosh [facility] 05-11-2023 16:23-0500 Systolic blood pressure 163 mm[Hg] Jorge Mcintosh [facility] 05-08-2023 12:41-0500 Diastolic blood pressure 62 mm[Hg] [facility] 05-08-2023 12:41-0500 Heart rate 78 /min [facility] 05-08-2023 12:41-0500 Mean blood pressure 80 mm[Hg] [facility] 05-08-2023 12:41-0500 Respiratory rate 16 /min [facility] 05-08-2023 12:41-0500 SaO2% (BldA) [Mass fraction] 95 % [facility] 05-08-2023 12:41-0500 Systolic blood pressure 115 mm[Hg] [facility] 05-08-2023 12:00-0500 Diastolic blood pressure 74 mm[Hg] [facility] 05-08-2023 12:00-0500 Mean blood pressure 95 mm[Hg] [facility] 05-08-2023 12:00-0500 SaO2% (BldA) [Mass fraction] 96 % [facility] 05-08-2023 12:00-0500 Systolic blood pressure 138 mm[Hg] [facility] 05-08-2023 11:27-0500 Body temperature 98.06 [degF] [facility] 05-08-2023 11:27-0500 Diastolic blood pressure 93 mm[Hg] [facility] 05-08-2023 11:27-0500 Heart rate 97 /min [facility] 05-08-2023 11:27-0500 Respiratory rate 18 /min [facility] 05-08-2023 11:27-0500 SaO2% (BldA) [Mass fraction] 95 % [facility] 05-08-2023 11:27-0500 Systolic blood pressure 166 mm[Hg] [facility] 05-05-2023 11:58-0500 Body height 160.02 cm PHYSICIAN NO [facility] 05-05-2023 11:58-0500 Body temperature 97.4 [degF] PHYSICIAN NO [facility] 05-05-2023 11:58-0500 Body weight 115.3 kg PHYSICIAN NO [facility] 05-05-2023 11:58-0500 Diastolic blood pressure 89 mm[Hg] PHYSICIAN NO [facility] 05-05-2023 11:58-0500 Heart rate 91 /min PHYSICIAN NO [facility] 05-05-2023 11:58-0500 Respiratory rate 20 /min PHYSICIAN NO [facility] 05-05-2023 11:58-0500 SaO2% (BldA) [Mass fraction] 98 % PHYSICIAN NO [facility] 05-05-2023 11:58-0500 Systolic blood pressure 152 mm[Hg] PHYSICIAN NO [facility] 04-28-2023 00:38-0500 Diastolic blood pressure 89 mm[Hg] Sal Mena MD Work Phone: [facility] 04-28-2023 00:38-0500 Heart rate 76 /min Sal Mena MD Work Phone: [facility] 04-28-2023 00:38-0500 Respiratory rate 16 /min Sal Mena MD Work Phone: [facility] 04-28-2023 00:38-0500 SaO2% (BldA) [Mass fraction] 99 % Sal Mena MD Work Phone: [facility] 04-28-2023 00:38-0500 Systolic blood pressure 160 mm[Hg] Sal Mena MD Work Phone: [facility] 04-27-2023 22:40-0500 Body temperature 97.81 [degF] Sal Mena MD Work Phone: [facility] 04-26-2023 09:29-0500 Body temperature 97.52 [degF] [facility] 04-26-2023 09:29-0500 Diastolic blood pressure 80 mm[Hg] [facility] 04-26-2023 09:29-0500 Heart rate 87 /min [facility] 04-26-2023 09:29-0500 Respiratory rate 20 /min [facility] 04-26-2023 09:29-0500 SaO2% (BldA) [Mass fraction] 96 % [facility] 04-26-2023 09:29-0500 Systolic blood pressure 166 mm[Hg] [facility] 04-22-2023 20:11-0500 Body temperature 98.06 [degF] Pedro Pablo Chance [facility] 04-22-2023 20:11-0500 Diastolic blood pressure 82 mm[Hg] Pedro Pablo Chance [facility] 04-22-2023 20:11-0500 Heart rate 93 /min Pedro Pablo Chance [facility] 04-22-2023 20:11-0500 Respiratory rate 18 /min Pedro Pablo Chance [facility] 04-22-2023 20:11-0500 SaO2% (BldA) [Mass fraction] 96 % Pedro Pablo Chance [facility] 04-22-2023 20:11-0500 Systolic blood pressure 166 mm[Hg] Pedro Pablo Chance [facility] 04-12-2023 14:11-0500 Body height 160.02 cm [facility] 04-12-2023 14:11-0500 Body temperature 97.9 [degF] [facility] 04-12-2023 14:11-0500 Body weight 114.5 kg [facility] 04-12-2023 14:11-0500 Diastolic blood pressure 98 mm[Hg] [facility] 04-12-2023 14:11-0500 Heart rate 99 /min [facility] 04-12-2023 14:11-0500 Respiratory rate 18 /min [facility] 04-12-2023 14:11-0500 SaO2% (BldA) [Mass fraction] 98 % [facility] 04-12-2023 14:11-0500 Systolic blood pressure 193 mm[Hg] [facility] 04-11-2023 18:31-0500 Body temperature 97.34 [degF] [facility] 04-11-2023 18:31-0500 Diastolic blood pressure 105 mm[Hg] [facility] 04-11-2023 18:31-0500 Heart rate 87 /min [facility] 04-11-2023 18:31-0500 Respiratory rate 20 /min [facility] 04-11-2023 18:31-0500 SaO2% (BldA) [Mass fraction] 96 % [facility] 04-11-2023 18:31-0500 Systolic blood pressure 160 mm[Hg] [facility] 04-11-2023 01:00-0500 Hourly Rounding Pedro Pablo Chance [facility] 04-11-2023 01:00-0500 Promise to Return Pedro Pablo Chance [facility] 04-11-2023 00:00-0500 Hourly Rounding Pedro Pablo Chance [facility] 04-11-2023 00:00-0500 Promise to Return Pedro Pablo Chance [facility] 04-10-2023 23:00-0500 Hourly Rounding Pedro Pablo Chance [facility] 04-10-2023 23:00-0500 Promise to Return Pedro Pablo Chance [facility] 04-10-2023 22:05-0500 Body temperature 97.34 [degF] Pedro Pablo Chance [facility] 04-10-2023 22:05-0500 Diastolic blood pressure 95 mm[Hg] Pedro Pablo Chance [facility] 04-10-2023 22:05-0500 Heart rate 80 /min Pedro Pablo Chance [facility] 04-10-2023 22:05-0500 Respiratory rate 16 /min Pedro Pablo Chance [facility] 04-10-2023 22:05-0500 SaO2% (BldA) [Mass fraction] 95 % Pedro Pablo Chance [facility] 04-10-2023 22:05-0500 Systolic blood pressure 156 mm[Hg] Pedro Pablo Chance [facility] 04-05-2023 15:30-0500 Diastolic blood pressure 82 mm[Hg] Nikhil Arley [facility] 04-05-2023 15:30-0500 Heart rate 76 /min Nikhil Arley [facility] 04-05-2023 15:30-0500 Mean blood pressure 100 mm[Hg] Nikhil Arley [facility] 04-05-2023 15:30-0500 Respiratory rate 17 /min Nikhil Arley [facility] 04-05-2023 15:30-0500 SaO2% (BldA) [Mass fraction] 97 % Nikhil Arley [facility] 04-05-2023 15:30-0500 Systolic blood pressure 137 mm[Hg] Nikhil Arley [facility] 04-05-2023 15:00-0500 Diastolic blood pressure 85 mm[Hg] Nikhil Arley [facility] 04-05-2023 15:00-0500 Heart rate 84 /min Nikhil Arley [facility] 04-05-2023 15:00-0500 Mean blood pressure 108 mm[Hg] Nikhil Arley [facility] 04-05-2023 15:00-0500 Systolic blood pressure 153 mm[Hg] Nikhil Arley [facility] 04-05-2023 14:30-0500 Diastolic blood pressure 66 mm[Hg] Nikhil Arley [facility] 04-05-2023 14:30-0500 Heart rate 81 /min Nikhil Tubbs [facility] 04-05-2023 14:30-0500 Mean blood pressure 88 mm[Hg] Nikhil Tubbs [facility] 04-05-2023 14:30-0500 Respiratory rate 18 /min Nikhil Tubbs [facility] 04-05-2023 14:30-0500 SaO2% (BldA) [Mass fraction] 96 % Nikhil Tubbs [facility] 04-05-2023 14:30-0500 Systolic blood pressure 131 mm[Hg] Nikhil Tubbs [facility] 04-05-2023 12:34-0500 Body temperature 98.06 [degF] Nikhil Tubbs [facility] 04-05-2023 12:34-0500 Heart rate 92 /min Nikhil Tubbs [facility] 04-02-2023 21:43-0500 Body temperature 97.34 [degF] Bebetoylinn Dokken [facility] 04-02-2023 21:43-0500 Diastolic blood pressure 94 mm[Hg] Kaylinn Dokken [facility] 04-02-2023 21:43-0500 Heart rate 96 /min Kaylinn Dokken [facility] 04-02-2023 21:43-0500 Respiratory rate 20 /min Kaylinn Dokken [facility] 04-02-2023 21:43-0500 SaO2% (BldA) [Mass fraction] 96 % Kaylinn Dokken [facility] 04-02-2023 21:43-0500 Systolic blood pressure 145 mm[Hg] Elisa Sánchez [facility] 04-01-2023 08:21-0500 Body height 160 cm Chidi Yuen MD Work Phone: 0(110)[phone] [address] 04-01-2023 08:21-0500 Body mass index (BMI) [Ratio] 43.22 kg/m2 Chidi Yuen MD Work Phone: 5(536)[phone] [address] 04-01-2023 08:21-0500 Body temperature 97.5 [degF] Chidi Yuen MD Work Phone: 9(952)[phone] [place] [address] 04-01-2023 08:21-0500 Body weight 110.68 kg Chidi Yuen MD Work Phone: 4(466)[phone] [address] 04-01-2023 08:21-0500 Diastolic blood pressure 87 mm[Hg] Chidi Yuen MD Work Phone: 5(556)[phone] [address] 04-01-2023 08:21-0500 Heart rate 92 /min Chidi Yuen MD Work Phone: 5(585)[phone] [place] [address] 04-01-2023 08:21-0500 Respiratory rate 16 /min Chidi Yuen MD Work Phone: 5(094)[phone] [place] [address] 04-01-2023 08:21-0500 Systolic blood pressure 138 mm[Hg] Chidi Yuen MD Work Phone: 7(205)[phone] [place] [address] 03-29-2023 10:06-0500 Body height 160.02 cm ELIZABETH Veliz Work Phone: [facility] 03-29-2023 10:06-0500 Body temperature 97.5 [degF] ELIZABETH Veliz Work Phone: [facility] 03-29-2023 10:06-0500 Body weight 111 kg ELIZABETH Veliz Work Phone: [facility] 03-29-2023 10:06-0500 Diastolic blood pressure 86 mm[Hg] ELIZABETH Veliz Work Phone: [facility] 03-29-2023 10:06-0500 Heart rate 85 /min ELIZABETH Veliz Work Phone: [facility] 03-29-2023 10:06-0500 Respiratory rate 20 /min ELIZABETH Veliz Work Phone: [facility] 03-29-2023 10:06-0500 SaO2% (BldA) [Mass fraction] 96 % ELIZABETH Veliz Work Phone: [facility] 03-29-2023 10:06-0500 Systolic blood pressure 133 mm[Hg] ELIZABETH Veliz Work Phone: [facility] 03-26-2023 12:43-0500 Diastolic blood pressure 80 mm[Hg] Jorge Mcintosh [facility] 03-26-2023 12:43-0500 Heart rate 79 /min Jorge Mcintosh [facility] 03-26-2023 12:43-0500 Respiratory rate 16 /min Jorge Mcintosh [facility] 03-26-2023 12:43-0500 SaO2% (BldA) [Mass fraction] 100 % Jorge Mcintosh [facility] 03-26-2023 12:43-0500 Systolic blood pressure 109 mm[Hg] Jorge Arnaldo [facility] 03-26-2023 10:55-0500 Body temperature 97.88 [degF] Jorge Arnaldo [facility] 03-26-2023 10:55-0500 Diastolic blood pressure 75 mm[Hg] Jorge Arnaldo [facility] 03-26-2023 10:55-0500 Heart rate 88 /min Jorge Arnaldo [facility] 03-26-2023 10:55-0500 Respiratory rate 16 /min Jorge Mcintosh [facility] 03-26-2023 10:55-0500 SaO2% (BldA) [Mass fraction] 95 % Jorge Mcintosh [facility] 03-26-2023 10:55-0500 Systolic blood pressure 132 mm[Hg] Jorge Mcintosh [facility] 2023 13:28-0500 Body height 160.02 cm 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Radha Veliz Work Phone: [facility] 2023 13:28-0500 Body temperature 97.8 [degF] 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 Estelle Veliz Work Phone: [facility] 2023 13:28-0500 Body weight 112.3 kg 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 Estelle Veliz Work Phone: [facility] 2023 13:28-0500 Diastolic blood pressure 85 mm[Hg] 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 Estelle Veliz Work Phone: [facility] 2023 13:28-0500 Heart rate 72 /min 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 Estelle Veliz Work Phone: [facility] 2023 13:28-0500 Respiratory rate 20 /min 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 Estelle Veliz Work Phone: [facility] 2023 13:28-0500 SaO2% (BldA) [Mass fraction] 98 % 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 Estelle Veliz Work Phone: [facility] 2023 13:28-0500 Systolic blood pressure 148 mm[Hg] 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 Estelle Veliz Work Phone: [facility] 03-23-2023 12:47-0500 Body temperature 97.7 [degF] Nikhil Tubbs [facility] 03-23-2023 12:47-0500 Diastolic blood pressure 100 mm[Hg] Nikhil Arley [facility] 03-23-2023 12:47-0500 Heart rate 77 /min Nikhil Arley [facility] 03-23-2023 12:47-0500 Respiratory rate 16 /min Nikhil Arley [facility] 03-23-2023 12:47-0500 SaO2% (BldA) [Mass fraction] 98 % Nikhil Arley [facility] 03-23-2023 12:47-0500 Systolic blood pressure 158 mm[Hg] Nikhil Arley [facility] 03-20-2023 13:07-0500 Body temperature 98.06 [degF] Kaylinn Dokken [facility] 03-20-2023 13:07-0500 Diastolic blood pressure 87 mm[Hg] Kaylinn Dokken [facility] 03-20-2023 13:07-0500 Heart rate 99 /min Kaylinn Dokken [facility] 03-20-2023 13:07-0500 Respiratory rate 16 /min Kaylinn Dokken [facility] 03-20-2023 13:07-0500 SaO2% (BldA) [Mass fraction] 97 % Kaylinn Dokken [facility] 03-20-2023 13:07-0500 Systolic blood pressure 125 mm[Hg] Kaylinn Dokken [facility] 03-11-2023 10:57-0500 Blood Pressure Location Alexute Finleyzander [facility] 03-11-2023 10:57-0500 Diastolic blood pressure 83 mm[Hg] [facility] 03-11-2023 10:57-0500 Heart rate 82 /min [facility] 03-11-2023 10:57-0500 Mean blood pressure 110 mm[Hg] [facility] 03-11-2023 10:57-0500 Respiratory rate 16 /min [facility] 03-11-2023 10:57-0500 SaO2% (BldA) [Mass fraction] 97 % [facility] 03-11-2023 10:57-0500 Systolic blood pressure 163 mm[Hg] [facility] 03-11-2023 10:13-0500 Diastolic blood pressure 99 mm[Hg] [facility] 03-11-2023 10:13-0500 Heart rate 64 /min [facility] 03-11-2023 10:13-0500 Mean blood pressure 117 mm[Hg] [facility] 03-11-2023 10:13-0500 SaO2% (BldA) [Mass fraction] 95 % [facility] 03-11-2023 10:13-0500 Systolic blood pressure 154 mm[Hg] [facility] 03-11-2023 09:02-0500 Body temperature 97.88 [degF] [facility] 03-11-2023 09:02-0500 Diastolic blood pressure 94 mm[Hg] [facility] 03-11-2023 09:02-0500 Heart rate 76 /min [facility] 03-11-2023 09:02-0500 Respiratory rate 20 /min [facility] 03-11-2023 09:02-0500 SaO2% (BldA) [Mass fraction] 96 % [facility] 03-11-2023 09:02-0500 Systolic blood pressure 143 mm[Hg] Balbina Bryant [facility] 03-09-2023 10:24-0500 Body height 160.02 cm PHYSICIAN NO [facility] 03-09-2023 10:24-0500 Body temperature 97.9 [degF] PHYSICIAN NO [facility] 03-09-2023 10:24-0500 Body weight 110 kg PHYSICIAN NO [facility] 03-09-2023 10:24-0500 Diastolic blood pressure 87 mm[Hg] PHYSICIAN NO [facility] 03-09-2023 10:24-0500 Heart rate 97 /min PHYSICIAN NO [facility] 03-09-2023 10:24-0500 Respiratory rate 16 /min PHYSICIAN NO [facility] 03-09-2023 10:24-0500 SaO2% (BldA) [Mass fraction] 96 % PHYSICIAN NO [facility] 03-09-2023 10:24-0500 Systolic blood pressure 154 mm[Hg] PHYSICIAN NO [facility] 02-21-2023 17:00-0500 Body height 160.02 cm [facility] Work Phone: [facility] 02-21-2023 17:00-0500 Body weight 110.95 kg [facility] Work Phone: [facility] 02-21-2023 16:59-0500 Body temperature 97.3 [degF] [facility] Work Phone: [facility] 02-21-2023 16:59-0500 Diastolic blood pressure 86 mm[Hg] [facility] Work Phone: [facility] 02-21-2023 16:59-0500 Heart rate 91 /min [facility] Work Phone: [facility] 02-21-2023 16:59-0500 Respiratory rate 20 /min [facility] Work Phone: [facility] 02-21-2023 16:59-0500 SaO2% (BldA) [Mass fraction] 97 % [facility] Work Phone: [facility] 02-21-2023 16:59-0500 Systolic blood pressure 183 mm[Hg] [facility] Work Phone: [facility] 02-12-2023 19:48-0500 Body temperature 98.06 [degF] Pedro Pablo Chance [facility] 02-12-2023 19:48-0500 Diastolic blood pressure 84 mm[Hg] Pedro Pablo Chance [facility] 02-12-2023 19:48-0500 Heart rate 98 /min Pedro Pablo Chance [facility] 02-12-2023 19:48-0500 Respiratory rate 18 /min Pedro Pablo Chance [facility] 02-12-2023 19:48-0500 SaO2% (BldA) [Mass fraction] 100 % Pedro Pablo Chance [facility] 02-12-2023 19:48-0500 Systolic blood pressure 134 mm[Hg] Pedro Pablo Chance [facility] 02-08-2023 17:18-0500 Body height 160.02 cm [facility] Work Phone: [facility] 02-08-2023 17:18-0500 Body temperature 98.5 [degF] [facility] Work Phone: [facility] 02-08-2023 17:18-0500 Body weight 108.86 kg [facility] Work Phone: [facility] 02-08-2023 17:18-0500 Diastolic blood pressure 115 mm[Hg] [facility] Work Phone: [facility] 02-08-2023 17:18-0500 Heart rate 98 /min [facility] Work Phone: [facility] 11-17-2023 17:18-0500 Respiratory rate 18 /min [facility] Work Phone: [facility] 02-08-2023 17:18-0500 SaO2% (BldA) [Mass fraction] 98 % [facility] Work Phone: [facility] 02-08-2023 17:18-0500 Systolic blood pressure 167 mm[Hg] [facility] Work Phone: [facility] 02-07-2023 19:28-0500 Body temperature 97.88 [degF] Houstoninn Dokken [facility] 02-07-2023 19:28-0500 Diastolic blood pressure 84 mm[Hg] Kaylinn Dokken [facility] 02-07-2023 19:28-0500 Heart rate 114 /min Bebetoylinn Dokken [facility] 02-07-2023 19:28-0500 Respiratory rate 18 /min Bebetoylinn Dokken [facility] 02-07-2023 19:28-0500 SaO2% (BldA) [Mass fraction] 99 % Bebetoylinn Dokken [facility] 02-07-2023 19:28-0500 Systolic blood pressure 163 mm[Hg] Bebetoylinn Dokken [facility] 02-04-2023 13:13-0500 Diastolic blood pressure 91 mm[Hg] [facility] Work Phone: [facility] 02-04-2023 13:13-0500 Heart rate 95 /min [facility] Work Phone: [facility] 02-04-2023 13:13-0500 Respiratory rate 18 /min Services [facility] Work Phone: [facility] 02-04-2023 13:13-0500 SaO2% (BldA) [Mass fraction] 99 % [facility] Work Phone: [facility] 02-04-2023 13:13-0500 Systolic blood pressure 145 mm[Hg] [facility] Work Phone: [facility] 02-04-2023 11:54-0500 Body height 160.02 cm [facility] Work Phone: [facility] 02-04-2023 11:54-0500 Body temperature 98.1 [degF] [facility] Work Phone: [facility] 02-04-2023 11:54-0500 Body weight 110.15 kg [facility] Work Phone: [facility] 02-02-2023 13:17-0500 Body height 160.02 cm [facility] Work Phone: [facility] 02-02-2023 13:17-0500 Body temperature 98.7 [degF] [facility] Work Phone: [facility] 02-02-2023 13:17-0500 Body weight 112.2 kg [facility] Work Phone: [facility] 02-02-2023 13:17-0500 Diastolic blood pressure 92 mm[Hg] [facility] Work Phone: [facility] 02-02-2023 13:17-0500 Heart rate 96 /min [facility] Work Phone: [facility] 02-02-2023 13:17-0500 Respiratory rate 24 /min [facility] Work Phone: [facility] 02-02-2023 13:17-0500 SaO2% (BldA) [Mass fraction] 98 % [facility] Work Phone: [facility] 02-02-2023 13:17-0500 Systolic blood pressure 171 mm[Hg] [facility] Work Phone: [facility] 01-29-2023 11:35-0500 Body temperature 98.06 [degF] Jorge Mcintosh [facility] 01-29-2023 11:35-0500 Diastolic blood pressure 87 mm[Hg] Jorge Mcintosh [facility] 01-29-2023 11:35-0500 Heart rate 84 /min Jorge Mcintosh [facility] 01-29-2023 11:35-0500 Respiratory rate 18 /min Jorge Mcintosh [facility] 01-29-2023 11:35-0500 SaO2% (BldA) [Mass fraction] 97 % Jorge Mcintosh [facility] 01-29-2023 11:35-0500 Systolic blood pressure 140 mm[Hg] Jorge Mcintosh [facility] 01-27-2023 10:41-0500 Body height 163.19 cm Services [employer] [facility] Work Phone: [facility] 01-27-2023 10:41-0500 Body weight 110 kg [facility] Work Phone: [facility] 01-27-2023 10:39-0500 Body temperature 98.2 [degF] [facility] Work Phone: [facility] 01-27-2023 10:39-0500 Diastolic blood pressure 100 mm[Hg] [facility] Work Phone: [facility] 01-27-2023 10:39-0500 Heart rate 96 /min [facility] Work Phone: [facility] 01-27-2023 10:39-0500 Respiratory rate 18 /min [facility] Work Phone: [facility] 01-27-2023 10:39-0500 SaO2% (BldA) [Mass fraction] 98 % [facility] Work Phone: [facility] 01-27-2023 10:39-0500 Systolic blood pressure 140 mm[Hg] [facility] Work Phone: [facility] 01-23-2023 13:19-0400 Body height 160.02 cm [facility] Work Phone: [facility] 01-23-2023 13:19-0400 Body temperature 97.4 [degF] [facility] Work Phone: [facility] 01-23-2023 13:19-0400 Body weight 113.4 kg Services [employer] [facility] Work Phone: [facility] 01-23-2023 13:19-0400 Diastolic blood pressure 85 mm[Hg] [facility] Work Phone: [facility] 01-23-2023 13:19-0400 Heart rate 81 /min [facility] Work Phone: [facility] 01-23-2023 13:19-0400 Respiratory rate 20 /min [facility] Work Phone: [facility] 01-23-2023 13:19-0400 SaO2% (BldA) [Mass fraction] 99 % [facility] Work Phone: [facility] 01-23-2023 13:19-0400 Systolic blood pressure 154 mm[Hg] [facility] Work Phone: [facility] 01-22-2023 18:48-0400 Body temperature 97.52 [degF] [facility] 01-22-2023 18:48-0400 Diastolic blood pressure 97 mm[Hg] [facility] 01-22-2023 18:48-0400 Heart rate 85 /min [facility] 01-22-2023 18:48-0400 Respiratory rate 16 /min [facility] 01-22-2023 18:48-0400 SaO2% (BldA) [Mass fraction] 96 % [facility] 01-22-2023 18:48-0400 Systolic blood pressure 143 mm[Hg] Balbina Bryant [facility] 01-22-2023 13:45-0400 Body height 160 cm Jori Cam MD PhD Work Phone: [facility] 01-22-2023 13:45-0400 Body mass index (BMI) [Ratio] 43.08 kg/m2 Jori Cam MD PhD Work Phone: [facility] 01-22-2023 13:45-0400 Body temperature 96.8 [degF] Jori Cam MD PhD Work Phone: [facility] 01-22-2023 13:45-0400 Body weight 110.31 kg Jori Cam MD PhD Work Phone: [facility] 01-22-2023 13:45-0400 Diastolic blood pressure 84 mm[Hg] Jori Cam MD PhD Work Phone: [facility] 01-22-2023 13:45-0400 Heart rate 97 /min Jori Cam MD PhD Work Phone: [facility] 01-22-2023 13:45-0400 Systolic blood pressure 160 mm[Hg] Jori Cam MD PhD Work Phone: [facility] 01-15-2023 13:20-0400 Body height 160 cm Antonio Newbill PA-C Work Phone: [facility] 01-15-2023 13:20-0400 Body mass index (BMI) [Ratio] 44.04 kg/m2 Antonio Newbill PA-C Work Phone: [facility] 01-15-2023 13:20-0400 Body temperature 97.5 [degF] Antonio Newbill PA-C Work Phone: [facility] 01-15-2023 13:20-0400 Body weight 112.76 kg Antonio Newbill PA-C Work Phone: [facility] 01-15-2023 13:20-0400 Diastolic blood pressure 90 mm[Hg] Antonio Husain PA-C Work Phone: [facility] 01-15-2023 13:20-0400 Heart rate 92 /min Antonio Husain PA-C Work Phone: [facility] 01-15-2023 13:20-0400 SaO2% (BldA) [Mass fraction] 94 % Antonio Husain PA-C Work Phone: [facility] 01-15-2023 13:20-0400 Systolic blood pressure 144 mm[Hg] Antonio Mcelroyl PA-C Work Phone: [facility] 01-14-2023 14:35-0400 Body temperature 97.52 [degF] Jorge Mcintosh [facility] 01-14-2023 14:35-0400 Diastolic blood pressure 81 mm[Hg] Jorge Mcintosh [facility] 01-14-2023 14:35-0400 Heart rate 81 /min Jorge Mcintosh [facility] 01-14-2023 14:35-0400 Respiratory rate 22 /min Jorge Mcintosh [facility] 01-14-2023 14:35-0400 SaO2% (BldA) [Mass fraction] 95 % Jorge Mcintosh [facility] 01-14-2023 14:35-0400 Systolic blood pressure 118 mm[Hg] Jorge Rodrigueze [facility] 01-12-2023 21:30-0400 Body temperature 98.06 [degF] [facility] 01-12-2023 21:30-0400 Diastolic blood pressure 80 mm[Hg] [facility] 01-12-2023 21:30-0400 Heart rate 78 /min [facility] 01-12-2023 21:30-0400 Mean blood pressure 100 mm[Hg] [facility] 01-12-2023 21:30-0400 Respiratory rate 16 /min [facility] 01-12-2023 21:30-0400 SaO2% (BldA) [Mass fraction] 98 % [facility] 01-12-2023 21:30-0400 Systolic blood pressure 140 mm[Hg] [facility] 01-12-2023 21:00-0400 Diastolic blood pressure 67 mm[Hg] [facility] 01-12-2023 21:00-0400 Heart rate 70 /min [facility] 01-12-2023 21:00-0400 Mean blood pressure 91 mm[Hg] [facility] 01-12-2023 21:00-0400 Systolic blood pressure 138 mm[Hg] [facility] 01-12-2023 20:24-0400 Body temperature 98.06 [degF] [facility] 01-12-2023 20:24-0400 Diastolic blood pressure 84 mm[Hg] [facility] 01-12-2023 20:24-0400 Heart rate 79 /min [facility] 01-12-2023 20:24-0400 Respiratory rate 20 /min [facility] 01-12-2023 20:24-0400 SaO2% (BldA) [Mass fraction] 97 % [facility] 01-12-2023 20:24-0400 Systolic blood pressure 144 mm[Hg] [facility] 01-12-2023 10:20-0400 Body height 160.02 cm [facility] Work Phone: [facility] 01-12-2023 10:20-0400 Body temperature 97.8 [degF] [facility] Work Phone: [facility] 01-12-2023 10:20-0400 Body weight 113.39 kg [facility] Work Phone: [facility] 01-12-2023 10:20-0400 Diastolic blood pressure 75 mm[Hg] [facility] Work Phone: [facility] 01-12-2023 10:20-0400 Heart rate 79 /min [facility] Work Phone: [facility] 01-12-2023 10:20-0400 Respiratory rate 18 /min Services [facility] Work Phone: [facility] 01-12-2023 10:20-0400 SaO2% (BldA) [Mass fraction] 96 % [facility] Work Phone: [facility] 01-12-2023 10:20-0400 Systolic blood pressure 130 mm[Hg] [facility] Work Phone: [facility] 01-10-2023 10:32-0400 Body temperature 97.88 [degF] Nikhil Tubbs [facility] 01-10-2023 10:32-0400 Diastolic blood pressure 92 mm[Hg] Nikhil Tubbs [facility] 01-10-2023 10:32-0400 Heart rate 75 /min Nikhil Tubbs [facility] 01-10-2023 10:32-0400 Respiratory rate 18 /min Nikhil Tubbs [facility] 01-10-2023 10:32-0400 SaO2% (BldA) [Mass fraction] 98 % Nikhil Tubbs [facility] 01-10-2023 10:32-0400 Systolic blood pressure 138 mm[Hg] Nikhil Tubbs [facility] 01-10-2023 08:40-0400 Body height 162.56 cm Joe Meza Other [employer] [facility] [employer] Other 01-10-2023 08:40-0400 Body mass index (BMI) [Ratio] 43.94 kg/m2 Joe Meza Other [employer] [facility] [employer] Other 01-10-2023 08:40-0400 Body weight 116.12 kg Joe Meza Other [employer] [facility] [employer] Other 01-07-2023 11:04-0400 Body height 160.02 cm [facility] Work Phone: [facility] 01-07-2023 11:04-0400 Body temperature 97.5 [degF] [facility] Work Phone: [facility] 01-07-2023 11:04-0400 Body weight 108.86 kg [facility] Work Phone: [facility] 01-07-2023 11:04-0400 Diastolic blood pressure 81 mm[Hg] [facility] Work Phone: [facility] 01-07-2023 11:04-0400 Heart rate 75 /min Services [employer] [facility] Work Phone: [facility] 01-07-2023 11:04-0400 Respiratory rate 18 /min Services [employer] [facility] Work Phone: [facility] 01-07-2023 11:04-0400 SaO2% (BldA) [Mass fraction] 97 % [facility] Work Phone: [facility] 01-07-2023 11:04-0400 Systolic blood pressure 159 mm[Hg] [facility] Work Phone: [facility] 01-04-2023 23:07-0400 Diastolic blood pressure 83 mm[Hg] Balbina Bryant [facility] 01-04-2023 23:07-0400 Heart rate 77 /min [facility] 01-04-2023 23:07-0400 Respiratory rate 18 /min [facility] 01-04-2023 23:07-0400 SaO2% (BldA) [Mass fraction] 95 % [facility] 01-04-2023 23:07-0400 Systolic blood pressure 124 mm[Hg] [facility] 01-04-2023 21:12-0400 Body temperature 97.88 [degF] [facility] 01-04-2023 21:12-0400 Diastolic blood pressure 82 mm[Hg] [facility] 01-04-2023 21:12-0400 Heart rate 81 /min [facility] 01-04-2023 21:12-0400 Respiratory rate 16 /min [facility] 01-04-2023 21:12-0400 SaO2% (BldA) [Mass fraction] 98 % [facility] 01-04-2023 21:12-0400 Systolic blood pressure 121 mm[Hg] [facility] 01-04-2023 15:17-0400 Body height 160.02 cm [facility] Work Phone: [facility] 01-04-2023 15:17-0400 Body temperature 98.5 [degF] [facility] Work Phone: [facility] 01-04-2023 15:17-0400 Body weight 108.86 kg [facility] Work Phone: [facility] 01-04-2023 15:17-0400 Diastolic blood pressure 68 mm[Hg] [facility] Work Phone: [facility] 01-04-2023 15:17-0400 Heart rate 97 /min [facility] Work Phone: [facility] 01-04-2023 15:17-0400 Respiratory rate 18 /min [facility] Work Phone: [facility] 01-04-2023 15:17-0400 SaO2% (BldA) [Mass fraction] 96 % [facility] Work Phone: [facility] 01-04-2023 15:17-0400 Systolic blood pressure 148 mm[Hg] [facility] Work Phone: [facility] 01-02-2023 16:07-0400 Body temperature 97.88 [degF] Nikhil Tubbs [facility] 01-02-2023 16:07-0400 Diastolic blood pressure 84 mm[Hg] Nikhil Tubbs [facility] 01-02-2023 16:07-0400 Heart rate 67 /min Nikhil Tubbs [facility] 01-02-2023 16:07-0400 Respiratory rate 18 /min Nikhil Tubbs [facility] 01-02-2023 16:07-0400 SaO2% (BldA) [Mass fraction] 93 % Nikhil Tubbs [facility] 01-02-2023 16:07-0400 Systolic blood pressure 127 mm[Hg] Nikhil Tubbs [facility] 12-28-2022 14:48-0400 Heart rate 97 /min [facility] Work Phone: [facility] 12-28-2022 13:09-0400 Body height 160.02 cm [facility] Work Phone: [facility] 12-28-2022 13:09-0400 Body temperature 98.3 [degF] [facility] Work Phone: [facility] 12-28-2022 13:09-0400 Body weight 108.86 kg [facility] Work Phone: [facility] 12-28-2022 13:09-0400 Diastolic blood pressure 84 mm[Hg] [facility] Work Phone: [facility] 12-28-2022 13:09-0400 Respiratory rate 20 /min Services [facility] Work Phone: [facility] 12-28-2022 13:09-0400 SaO2% (BldA) [Mass fraction] 100 % Services [facility] Work Phone: [facility] 12-28-2022 13:09-0400 Systolic blood pressure 124 mm[Hg] Services [facility] Work Phone: [facility] 12-27-2022 08:40-0400 Body height 162.56 cm Rose [employer] Other [employer] Other 12-27-2022 08:40-0400 Body mass index (BMI) [Ratio] 42.05 kg/m2 [employer] Other [employer] Other 12-27-2022 08:40-0400 Body weight 111.13 kg [employer] Other [employer] Other 12-26-2022 16:28-0400 Body temperature 98.06 [degF] [facility] 12-26-2022 16:28-0400 Diastolic blood pressure 63 mm[Hg] [facility] 12-26-2022 16:28-0400 Heart rate 74 /min [facility] 12-26-2022 16:28-0400 Respiratory rate 18 /min [facility] 12-26-2022 16:28-0400 SaO2% (BldA) [Mass fraction] 98 % [facility] 12-26-2022 16:28-0400 Systolic blood pressure 142 mm[Hg] [facility] 12-26-2022 13:15-0400 Body height 162.56 cm Glen Garza Other [employer] Other 12-26-2022 13:15-0400 Body mass index (BMI) [Ratio] 42.74 kg/m2 Glen Garza Other [employer] Other 12-26-2022 13:15-0400 Body weight 112.95 kg Glen Garza Other [employer] Other 12-26-2022 13:15-0400 Diastolic blood pressure 80 mm[Hg] Glen Garza Other [employer] Other 12-26-2022 13:15-0400 SaO2% (BldA) [Mass fraction] 98 % Glen Garza Other [employer] Other 12-26-2022 13:15-0400 Systolic blood pressure 126 mm[Hg] Glen Garza Other [employer] Other 12-24-2022 12:28-0400 Body height 160.02 cm [facility] Work Phone: [facility] 12-24-2022 12:28-0400 Body temperature 97.8 [degF] [facility] Work Phone: [facility] 12-24-2022 12:28-0400 Body weight 114 kg [facility] Work Phone: [facility] 12-24-2022 12:28-0400 Diastolic blood pressure 78 mm[Hg] [facility] Work Phone: [facility] 12-24-2022 12:28-0400 Heart rate 82 /min [facility] Work Phone: [facility] 12-24-2022 12:28-0400 Respiratory rate 20 /min [facility] Work Phone: [facility] 12-24-2022 12:28-0400 SaO2% (BldA) [Mass fraction] 100 % [facility] Work Phone: [facility] 12-24-2022 12:28-0400 Systolic blood pressure 135 mm[Hg] [facility] Work Phone: [facility] 12-23-2022 16:55-0400 Body temperature 97.7 [degF] Nikhil Tubbs [facility] 12-23-2022 16:55-0400 Diastolic blood pressure 80 mm[Hg] Nikhil Tubbs [facility] 12-23-2022 16:55-0400 Heart rate 81 /min Nikhil Tubbs [facility] 12-23-2022 16:55-0400 Respiratory rate 20 /min Nikhil Tubbs [facility] 12-23-2022 16:55-0400 SaO2% (BldA) [Mass fraction] 98 % Nikhil Tubbs [facility] 12-23-2022 16:55-0400 Systolic blood pressure 123 mm[Hg] Nikhil Tubbs [facility] 12-21-2022 16:11-0400 Body height 160.02 cm Services [employer] [facility] Work Phone: [facility] 12-21-2022 16:11-0400 Body weight 112 kg Services [employer] [facility] Work Phone: [facility] 12-21-2022 16:10-0400 Body temperature 97.8 [degF] [facility] Work Phone: [facility] 12-21-2022 16:10-0400 Diastolic blood pressure 78 mm[Hg] [facility] Work Phone: [facility] 09-29-2023 16:10-0400 Heart rate 87 /min Services [employer] [facility] Work Phone: [facility] 12-21-2022 16:10-0400 Respiratory rate 16 /min [facility] Work Phone: [facility] 12-21-2022 16:10-0400 SaO2% (BldA) [Mass fraction] 97 % [facility] Work Phone: [facility] 12-21-2022 16:10-0400 Systolic blood pressure 139 mm[Hg] [facility] Work Phone: [facility] 12-18-2022 12:25-0400 Body temperature 98.06 [degF] Jorge Rodrigueze [facility] 12-18-2022 12:25-0400 Diastolic blood pressure 84 mm[Hg] Jorge Rodrigueze [facility] 12-18-2022 12:25-0400 Heart rate 77 /min Jorge Rodrigueze [facility] 12-18-2022 12:25-0400 Respiratory rate 18 /min Jorge Rodrigueze [facility] 12-18-2022 12:25-0400 SaO2% (BldA) [Mass fraction] 98 % Jorge Rodrigueze [facility] 12-18-2022 12:25-0400 Systolic blood pressure 131 mm[Hg] Jorge Rodrigueze [facility] 12-14-2022 15:12-0400 Body height 160.02 cm Services [employer] [facility] Work Phone: [facility] 12-14-2022 15:12-0400 Body temperature 98.1 [degF] [facility] Work Phone: [facility] 12-14-2022 15:12-0400 Body weight 108.86 kg [facility] Work Phone: [facility] 12-14-2022 15:12-0400 Diastolic blood pressure 73 mm[Hg] [facility] Work Phone: [facility] 12-14-2022 15:12-0400 Heart rate 93 /min [facility] Work Phone: [facility] 12-14-2022 15:12-0400 Respiratory rate 20 /min Services [facility] Work Phone: [facility] 12-14-2022 15:12-0400 SaO2% (BldA) [Mass fraction] 97 % [facility] Work Phone: [facility] 12-14-2022 15:12-0400 Systolic blood pressure 132 mm[Hg] [facility] Work Phone: [facility] 12-13-2022 18:33-0400 Diastolic blood pressure 68 mm[Hg] Nikhil Arley [facility] 12-13-2022 18:33-0400 Heart rate 61 /min Nikhil Arley [facility] 12-13-2022 18:33-0400 Mean blood pressure 95 mm[Hg] Nikhil Arley [facility] 12-13-2022 18:33-0400 SaO2% (BldA) [Mass fraction] 97 % Nikhil Arley [facility] 12-13-2022 18:33-0400 Systolic blood pressure 149 mm[Hg] Nikhil Arley [facility] 12-13-2022 18:13-0400 Diastolic blood pressure 63 mm[Hg] Nikhil Arley [facility] 12-13-2022 18:13-0400 Heart rate 73 /min Nikhil Arley [facility] 12-13-2022 18:13-0400 Mean blood pressure 86 mm[Hg] Nikhil Arley [facility] 12-13-2022 18:13-0400 Respiratory rate 20 /min Nikhil Arley [facility] 12-13-2022 18:13-0400 SaO2% (BldA) [Mass fraction] 98 % Nikhil Arley [facility] 12-13-2022 18:13-0400 Systolic blood pressure 131 mm[Hg] Nikhil Arley [facility] 12-13-2022 17:22-0400 Body temperature 98.06 [degF] Nikhil Arley [facility] 12-13-2022 17:22-0400 Diastolic blood pressure 61 mm[Hg] Nikhil Arley [facility] 12-13-2022 17:22-0400 Heart rate 63 /min Nikhil Arley [facility] 12-13-2022 17:22-0400 Respiratory rate 22 /min Nikhil Arley [facility] 12-13-2022 17:22-0400 Systolic blood pressure 147 mm[Hg] Nikhil Arley [facility] 12-13-2022 00:15-0400 Diastolic blood pressure 56 mm[Hg] Kaylinn Dokken [facility] 12-13-2022 00:15-0400 Heart rate 65 /min Kaylinn Dokken [facility] 12-13-2022 00:15-0400 Mean blood pressure 77 mm[Hg] Kaylinn Dokken [facility] 12-13-2022 00:15-0400 Respiratory rate 16 /min Kaylinn Dokken [facility] 12-13-2022 00:15-0400 SaO2% (BldA) [Mass fraction] 96 % Kaylinn Dokken [facility] 12-13-2022 00:15-0400 Systolic blood pressure 120 mm[Hg] Kaylinn Dokken [facility] 12-12-2022 23:39-0400 Diastolic blood pressure 47 mm[Hg] Kaylinn Dokken [facility] 12-12-2022 23:39-0400 Heart rate 70 /min Kaylinn Dokken [facility] 12-12-2022 23:39-0400 Respiratory rate 25 /min Kaylinn Dokken [facility] 12-12-2022 23:39-0400 SaO2% (BldA) [Mass fraction] 95 % Kaylinn Dokken [facility] 12-12-2022 23:39-0400 Systolic blood pressure 136 mm[Hg] Kaylinn Dokken [facility] 12-12-2022 22:59-0400 Diastolic blood pressure 72 mm[Hg] Kaylinn Dokken [facility] 12-12-2022 22:59-0400 Heart rate 69 /min Kaylinn Dokken [facility] 12-12-2022 22:59-0400 Mean blood pressure 96 mm[Hg] Kaylinn Dokken [facility] 12-12-2022 22:59-0400 Respiratory rate 18 /min Kaylinn Dokken [facility] 12-12-2022 22:59-0400 Systolic blood pressure 143 mm[Hg] Kaylinn Dokken [facility] 12-12-2022 20:58-0400 Body temperature 98.24 [degF] Elisa Sánchez [facility] 12-12-2022 20:58-0400 Heart rate 79 /min Elisa Sánchez [facility] 12-12-2022 20:58-0400 Respiratory rate 18 /min Elisa Sánchez [facility] 12-12-2022 10:45-0400 Diastolic blood pressure 75 mm[Hg] [facility] Work Phone: [facility] 12-12-2022 10:45-0400 Heart rate 84 /min Services [employer] [facility] Work Phone: [facility] 12-12-2022 10:45-0400 Respiratory rate 16 /min Services [employer] [facility] Work Phone: [facility] 12-12-2022 10:45-0400 SaO2% (BldA) [Mass fraction] 100 % [facility] Work Phone: [facility] 12-12-2022 10:45-0400 Systolic blood pressure 127 mm[Hg] [facility] Work Phone: [facility] 12-12-2022 09:01-0400 Body height 162.56 cm [facility] Work Phone: [facility] 12-12-2022 09:01-0400 Body weight 112.03 kg [facility] Work Phone: [facility] 12-11-2022 17:19-0400 Diastolic blood pressure 71 mm[Hg] [facility] Work Phone: [facility] 12-11-2022 17:19-0400 Heart rate 70 /min [facility] Work Phone: [facility] 12-11-2022 17:19-0400 Respiratory rate 20 /min [facility] Work Phone: [facility] 12-11-2022 17:19-0400 SaO2% (BldA) [Mass fraction] 97 % [facility] Work Phone: [facility] 12-11-2022 17:19-0400 Systolic blood pressure 131 mm[Hg] [facility] Work Phone: [facility] 12-11-2022 14:58-0400 Body height 160.02 cm [facility] Work Phone: [facility] 12-11-2022 14:58-0400 Body temperature 98.7 [degF] [facility] Work Phone: [facility] 12-11-2022 14:58-0400 Body weight 108.86 kg [facility] Work Phone: [facility] 12-10-2022 17:46-0400 Body height 160.02 cm [facility] Work Phone: [facility] 12-10-2022 17:46-0400 Body temperature 98.2 [degF] [facility] Work Phone: [facility] 12-10-2022 17:46-0400 Body weight 108.86 kg [facility] Work Phone: [facility] 12-10-2022 17:46-0400 Diastolic blood pressure 90 mm[Hg] [facility] Work Phone: [facility] 12-10-2022 17:46-0400 Heart rate 97 /min [facility] Work Phone: [facility] 12-10-2022 17:46-0400 Respiratory rate 15 /min [facility] Work Phone: [facility] 12-10-2022 17:46-0400 SaO2% (BldA) [Mass fraction] 99 % [facility] Work Phone: [facility] 12-10-2022 17:46-0400 Systolic blood pressure 135 mm[Hg] [facility] Work Phone: [facility] 12-09-2022 16:38-0400 Body height 160.02 cm [facility] Work Phone: [facility] 12-09-2022 16:38-0400 Body temperature 97.7 [degF] [facility] Work Phone: [facility] 12-09-2022 16:38-0400 Body weight 104.32 kg [facility] Work Phone: [facility] 12-09-2022 16:38-0400 Diastolic blood pressure 86 mm[Hg] [facility] Work Phone: [facility] 12-09-2022 16:38-0400 Heart rate 90 /min Services [facility] Work Phone: [facility] 12-09-2022 16:38-0400 Respiratory rate 20 /min [facility] Work Phone: [facility] 12-09-2022 16:38-0400 SaO2% (BldA) [Mass fraction] 98 % [facility] Work Phone: [facility] 12-09-2022 16:38-0400 Systolic blood pressure 125 mm[Hg] Services [facility] Work Phone: [facility] 12-07-2022 18:54-0400 Heart rate 70 /min Chandana Avery [facility] 12-07-2022 18:54-0400 Respiratory rate 16 /min Chandana Avery [facility] 12-07-2022 18:54-0400 SaO2% (BldA) [Mass fraction] 99 % Chandana Avery [facility] 12-07-2022 16:49-0400 Body temperature 98.78 [degF] Chandana Avery [facility] 12-07-2022 16:49-0400 Diastolic blood pressure 79 mm[Hg] Chandana Varela [facility] 12-07-2022 16:49-0400 Heart rate 84 /min Chandana Varela [facility] 12-07-2022 16:49-0400 Respiratory rate 18 /min [facility] [facility] 12-07-2022 16:49-0400 SaO2% (BldA) [Mass fraction] 98 % Chandana Varela [facility] 12-07-2022 16:49-0400 Systolic blood pressure 116 mm[Hg] Chandana Varela [facility] 12-07-2022 10:20-0400 Body height 160.02 cm Services [employer] [facility] Work Phone: [facility] 12-07-2022 10:20-0400 Body temperature 97.6 [degF] Services [facility] Work Phone: [facility] 12-07-2022 10:20-0400 Body weight 110.1 kg Services [facility] Work Phone: [facility] 12-07-2022 10:20-0400 Diastolic blood pressure 82 mm[Hg] Services [facility] Work Phone: [facility] 12-07-2022 10:20-0400 Heart rate 98 /min [facility] Work Phone: [facility] 12-07-2022 10:20-0400 Respiratory rate 22 /min [facility] Work Phone: [facility] 12-07-2022 10:20-0400 SaO2% (BldA) [Mass fraction] 98 % Services [facility] Work Phone: [facility] 12-07-2022 10:20-0400 Systolic blood pressure 139 mm[Hg] [facility] Work Phone: [facility] 12-04-2022 20:24-0400 Body temperature 98.01 [degF] Allyson Griffiths DO Work Phone: [facility] 12-04-2022 20:24-0400 Diastolic blood pressure 74 mm[Hg] Allyson Griffiths DO Work Phone: [facility] 12-04-2022 20:24-0400 Heart rate 70 /min Allyson Griffiths DO Work Phone: [facility] 12-04-2022 20:24-0400 Respiratory rate 18 /min Allyson Griffiths DO Work Phone: [facility] 12-04-2022 20:24-0400 SaO2% (BldA) [Mass fraction] 98 % Allyson Griffiths DO Work Phone: [facility] 12-04-2022 20:24-0400 Systolic blood pressure 127 mm[Hg] Allyson Griffiths DO Work Phone: [facility] 12-04-2022 19:35-0400 Body height 160 cm Allyson Griffiths DO Work Phone: [facility] 12-04-2022 19:35-0400 Body mass index (BMI) [Ratio] 42.16 kg/m2 Allyson Griffiths DO Work Phone: [facility] 12-04-2022 19:35-0400 Body weight 107.96 kg Allyson Griffiths DO Work Phone: [facility] 11-29-2022 16:15-0400 Body temperature 97.9 [degF] Services [facility] Work Phone: [facility] 11-29-2022 16:15-0400 Diastolic blood pressure 86 mm[Hg] Services [facility] Work Phone: [facility] 11-29-2022 16:15-0400 Heart rate 86 /min [facility] Work Phone: [facility] 11-29-2022 16:15-0400 Respiratory rate 18 /min [facility] Work Phone: [facility] 11-29-2022 16:15-0400 SaO2% (BldA) [Mass fraction] 98 % Services [facility] Work Phone: [facility] 11-29-2022 16:15-0400 Systolic blood pressure 113 mm[Hg] Services [facility] Work Phone: [facility] 11-29-2022 15:27-0400 Body height 160.02 cm Services [facility] Work Phone: [facility] 11-29-2022 15:27-0400 Body weight 108.9 kg Services [facility] Work Phone: [facility] 11-28-2022 10:51-0400 Diastolic blood pressure 95 mm[Hg] [facility] Work Phone: [facility] 11-28-2022 10:51-0400 Heart rate 84 /min [facility] Work Phone: [facility] 11-28-2022 10:51-0400 Respiratory rate 16 /min [facility] Work Phone: [facility] 11-28-2022 10:51-0400 SaO2% (BldA) [Mass fraction] 98 % Services [facility] Work Phone: [facility] 11-28-2022 10:51-0400 Systolic blood pressure 122 mm[Hg] [facility] Work Phone: [facility] 11-28-2022 10:11-0400 Inhaled oxygen flow rate 3 L/min [facility] Work Phone: [facility] 11-28-2022 08:54-0400 Body height 160.02 cm Services [facility] Work Phone: [facility] 11-28-2022 08:54-0400 Body temperature 97.9 [degF] Services [facility] Work Phone: [facility] 11-28-2022 08:54-0400 Body weight 108.86 kg Services [facility] Work Phone: [facility] 11-19-2022 10:30-0400 Body height 162.56 cm Glen Garza Other [employer] Other 11-19-2022 10:30-0400 Body mass index (BMI) [Ratio] 42.39 kg/m2 Glen Garza Other [employer] Other 11-19-2022 10:30-0400 Body weight 112.04 kg Glen Garza Other [employer] Other 11-19-2022 10:30-0400 Diastolic blood pressure 70 mm[Hg] Glen Garza Other [employer] Other 11-19-2022 10:30-0400 SaO2% (BldA) [Mass fraction] 97 % Glen Garza Other [employer] Other 11-19-2022 10:30-0400 Systolic blood pressure 102 mm[Hg] Glen Garza Other [employer] Other 11-18-2022 12:35-0400 Body height 160.02 cm Services [facility] Work Phone: [facility] 11-18-2022 12:35-0400 Body temperature 98.6 [degF] Services [facility] Work Phone: [facility] 11-18-2022 12:35-0400 Body weight 110.4 kg Services [facility] Work Phone: [facility] 11-18-2022 12:35-0400 Diastolic blood pressure 84 mm[Hg] Services [employer] [facility] Work Phone: [facility] 11-18-2022 12:35-0400 Heart rate 99 /min [facility] Work Phone: [facility] 11-18-2022 12:35-0400 Respiratory rate 20 /min [facility] Work Phone: [facility] 11-18-2022 12:35-0400 SaO2% (BldA) [Mass fraction] 98 % Services [facility] Work Phone: [facility] 11-18-2022 12:35-0400 Systolic blood pressure 142 mm[Hg] Services [facility] Work Phone: [facility] 11-16-2022 23:39-0400 Body height 160.02 cm Services [facility] Work Phone: [facility] 11-16-2022 23:39-0400 Body temperature 97.5 [degF] Services [facility] Work Phone: [facility] 11-16-2022 23:39-0400 Body weight 110 kg [facility] Work Phone: [facility] 11-16-2022 23:39-0400 Diastolic blood pressure 64 mm[Hg] Services [facility] Work Phone: [facility] 11-16-2022 23:39-0400 Heart rate 85 /min [facility] Work Phone: [facility] 11-16-2022 23:39-0400 Respiratory rate 18 /min [facility] Work Phone: [facility] 11-16-2022 23:39-0400 SaO2% (BldA) [Mass fraction] 96 % [facility] Work Phone: [facility] 11-16-2022 23:39-0400 Systolic blood pressure 140 mm[Hg] [facility] Work Phone: [facility] 11-15-2022 18:19-0400 Body height 160.02 cm [facility] Work Phone: [facility] 11-15-2022 18:19-0400 Body temperature 97.8 [degF] Services [facility] Work Phone: [facility] 11-15-2022 18:19-0400 Body weight 111 kg Services [facility] Work Phone: [facility] 11-15-2022 18:19-0400 Diastolic blood pressure 76 mm[Hg] [facility] Work Phone: [facility] 11-15-2022 18:19-0400 Heart rate 96 /min [facility] Work Phone: [facility] 11-15-2022 18:19-0400 Respiratory rate 22 /min [facility] Work Phone: [facility] 11-15-2022 18:19-0400 SaO2% (BldA) [Mass fraction] 97 % [facility] Work Phone: [facility] 11-15-2022 18:19-0400 Systolic blood pressure 133 mm[Hg] [facility] Work Phone: [facility] 11-12-2022 21:47-0400 Body height 160.02 cm Services [facility] Work Phone: [facility] 11-12-2022 21:47-0400 Body temperature 98 [degF] Services [facility] Work Phone: [facility] 11-12-2022 21:47-0400 Body weight 108.86 kg Services [facility] Work Phone: [facility] 11-12-2022 21:47-0400 Diastolic blood pressure 81 mm[Hg] [facility] Work Phone: [facility] 11-12-2022 21:47-0400 Heart rate 81 /min [facility] Work Phone: [facility] 11-12-2022 21:47-0400 Respiratory rate 20 /min [facility] Work Phone: [facility] 11-12-2022 21:47-0400 SaO2% (BldA) [Mass fraction] 96 % [facility] Work Phone: [facility] 11-12-2022 21:47-0400 Systolic blood pressure 142 mm[Hg] [facility] Work Phone: [facility] 11-11-2022 15:39-0400 Body height 160.02 cm Services [facility] Work Phone: [facility] 11-11-2022 15:39-0400 Body temperature 97.6 [degF] Services [facility] Work Phone: [facility] 11-11-2022 15:39-0400 Body weight 109.45 kg Services [facility] Work Phone: [facility] 11-11-2022 15:39-0400 Diastolic blood pressure 109 mm[Hg] Services [facility] Work Phone: [facility] 11-11-2022 15:39-0400 Heart rate 105 /min [facility] Work Phone: [facility] 11-11-2022 15:39-0400 Respiratory rate 20 /min [facility] Work Phone: [facility] 11-11-2022 15:39-0400 SaO2% (BldA) [Mass fraction] 96 % [facility] Work Phone: [facility] 11-11-2022 15:39-0400 Systolic blood pressure 153 mm[Hg] [facility] Work Phone: [facility] 11-08-2022 09:05-0400 Body height 160.02 cm [facility] Work Phone: [facility] 11-08-2022 09:05-0400 Body temperature 97.7 [degF] [facility] Work Phone: [facility] 11-08-2022 09:05-0400 Body weight 108.86 kg [facility] Work Phone: [facility] 11-08-2022 09:05-0400 Diastolic blood pressure 76 mm[Hg] Services [facility] Work Phone: [facility] 11-08-2022 09:05-0400 Heart rate 95 /min [facility] Work Phone: [facility] 11-08-2022 09:05-0400 Respiratory rate 18 /min Services [employer] [facility] Work Phone: [facility] 11-08-2022 09:05-0400 SaO2% (BldA) [Mass fraction] 96 % Services [facility] Work Phone: [facility] 11-08-2022 09:05-0400 Systolic blood pressure 134 mm[Hg] Services [employer] [facility] Work Phone: [facility] 11-06-2022 09:00-0400 Body height 162.56 cm Rose Marie Shepherd Other [employer] [facility] [employer] Other 11-06-2022 09:00-0400 Body mass index (BMI) [Ratio] 41.36 kg/m2 Rose Marie Shepherd Other [employer] Other 11-06-2022 09:00-0400 Body weight 109.32 kg Rose Marie Shepherd Other [employer] Other 11-06-2022 09:00-0400 Diastolic blood pressure 76 mm[Hg] Rose Marie Shepherd Other [employer] Other 11-06-2022 09:00-0400 Systolic blood pressure 136 mm[Hg] Rose Marie Shepherd Other [employer] Other 11-01-2022 20:46-0400 Body height 160.02 cm Services [employer] [facility] Work Phone: [facility] 11-01-2022 20:46-0400 Body temperature 97.8 [degF] Services [facility] Work Phone: [facility] 11-01-2022 20:46-0400 Body weight 109.76 kg [facility] Work Phone: [facility] 11-01-2022 20:46-0400 Diastolic blood pressure 92 mm[Hg] [facility] Work Phone: [facility] 11-01-2022 20:46-0400 Heart rate 90 /min [facility] Work Phone: [facility] 11-01-2022 20:46-0400 Respiratory rate 12 /min [facility] Work Phone: [facility] 11-01-2022 20:46-0400 SaO2% (BldA) [Mass fraction] 97 % [facility] Work Phone: [facility] 11-01-2022 20:46-0400 Systolic blood pressure 138 mm[Hg] [facility] Work Phone: [facility] 10-31-2022 09:05-0400 Body height 160.02 cm [facility] Work Phone: [facility] 10-31-2022 09:05-0400 Body weight 108.86 kg [facility] Work Phone: [facility] 10-25-2022 21:56-0400 Body height 160.02 cm [facility] Work Phone: [facility] 10-25-2022 21:56-0400 Body temperature 98.1 [degF] [facility] Work Phone: [facility] 10-25-2022 21:56-0400 Body weight 104.32 kg [facility] Work Phone: [facility] 10-25-2022 21:56-0400 Diastolic blood pressure 77 mm[Hg] [facility] Work Phone: [facility] 10-25-2022 21:56-0400 Heart rate 90 /min [facility] Work Phone: [facility] 10-25-2022 21:56-0400 Respiratory rate 18 /min [facility] Work Phone: [facility] 10-25-2022 21:56-0400 SaO2% (BldA) [Mass fraction] 96 % [facility] Work Phone: [facility] 10-25-2022 21:56-0400 Systolic blood pressure 127 mm[Hg] [facility] Work Phone: [facility] 10-23-2022 12:21-0400 Body temperature 97.6 [degF] [facility] Work Phone: [facility] 10-23-2022 12:20-0400 Body height 160.02 cm [facility] Work Phone: [facility] 10-23-2022 12:20-0400 Body weight 108.86 kg [facility] Work Phone: [facility] 10-23-2022 12:20-0400 Diastolic blood pressure 89 mm[Hg] [facility] Work Phone: [facility] 10-23-2022 12:20-0400 Heart rate 87 /min [facility] Work Phone: [facility] 10-23-2022 12:20-0400 Respiratory rate 20 /min [facility] Work Phone: [facility] 10-23-2022 12:20-0400 SaO2% (BldA) [Mass fraction] 97 % [facility] Work Phone: [facility] 10-23-2022 12:20-0400 Systolic blood pressure 133 mm[Hg] [facility] Work Phone: [facility] 10-16-2022 16:24-0400 Body height 160.02 cm [facility] Work Phone: [facility] 10-16-2022 16:24-0400 Body temperature 97.7 [degF] [facility] Work Phone: [facility] 10-16-2022 16:24-0400 Body weight 105.7 kg [facility] Work Phone: [facility] 10-16-2022 16:24-0400 Diastolic blood pressure 95 mm[Hg] [facility] Work Phone: [facility] 10-16-2022 16:24-0400 Heart rate 82 /min [facility] Work Phone: [facility] 10-16-2022 16:24-0400 Respiratory rate 16 /min [facility] Work Phone: [facility] 10-16-2022 16:24-0400 SaO2% (BldA) [Mass fraction] 96 % [facility] Work Phone: [facility] 10-16-2022 16:24-0400 Systolic blood pressure 122 mm[Hg] [facility] Work Phone: [facility] 10-11-2022 17:34-0400 Body height 160.02 cm [facility] Work Phone: [facility] 10-11-2022 17:34-0400 Body temperature 97.7 [degF] [facility] Work Phone: [facility] 10-11-2022 17:34-0400 Body weight 106.95 kg [facility] Work Phone: [facility] 10-11-2022 17:34-0400 Diastolic blood pressure 82 mm[Hg] [facility] Work Phone: [facility] 10-11-2022 17:34-0400 Heart rate 90 /min [facility] Work Phone: [facility] 10-11-2022 17:34-0400 Respiratory rate 18 /min [facility] Work Phone: [facility] 10-11-2022 17:34-0400 SaO2% (BldA) [Mass fraction] 97 % [facility] Work Phone: [facility] 10-11-2022 17:34-0400 Systolic blood pressure 126 mm[Hg] [facility] Work Phone: [facility] 10-07-2022 12:25-0400 Body height 162.56 cm [facility] Work Phone: [facility] 10-07-2022 12:25-0400 Body temperature 97.7 [degF] [facility] Work Phone: [facility] 10-07-2022 12:25-0400 Body weight 106 kg [facility] Work Phone: [facility] 10-07-2022 12:25-0400 Diastolic blood pressure 81 mm[Hg] [facility] Work Phone: [facility] 10-07-2022 12:25-0400 Heart rate 85 /min [facility] Work Phone: [facility] 10-07-2022 12:25-0400 Respiratory rate 20 /min [facility] Work Phone: [facility] 10-07-2022 12:25-0400 SaO2% (BldA) [Mass fraction] 97 % [facility] Work Phone: [facility] 10-07-2022 12:25-0400 Systolic blood pressure 154 mm[Hg] [facility] Work Phone: [facility] 10-04-2022 18:16-0400 Body height 162.56 cm [facility] Work Phone: [facility] 10-04-2022 18:16-0400 Body temperature 98.1 [degF] [facility] Work Phone: [facility] 10-04-2022 18:16-0400 Body weight 107.2 kg [facility] Work Phone: [facility] 10-04-2022 18:16-0400 Diastolic blood pressure 80 mm[Hg] [facility] Work Phone: [facility] 10-04-2022 18:16-0400 Heart rate 89 /min [facility] Work Phone: [facility] 10-04-2022 18:16-0400 Respiratory rate 18 /min [facility] Work Phone: [facility] 10-04-2022 18:16-0400 SaO2% (BldA) [Mass fraction] 96 % [facility] Work Phone: [facility] 10-04-2022 18:16-0400 Systolic blood pressure 165 mm[Hg] [facility] Work Phone: [facility] 10-02-2022 19:44-0400 Diastolic blood pressure 84 mm[Hg] [facility] Work Phone: [facility] 10-02-2022 19:44-0400 Heart rate 77 /min [facility] Work Phone: [facility] 10-02-2022 19:44-0400 Respiratory rate 20 /min [facility] Work Phone: [facility] 10-02-2022 19:44-0400 Systolic blood pressure 130 mm[Hg] [facility] Work Phone: [facility] 10-02-2022 18:59-0400 Body height 162.56 cm [facility] Work Phone: [facility] 10-02-2022 18:59-0400 Body temperature 98 [degF] [facility] Work Phone: [facility] 10-02-2022 18:59-0400 Body weight 108.8 kg [facility] Work Phone: [facility] 10-02-2022 18:59-0400 SaO2% (BldA) [Mass fraction] 96 % [facility] Work Phone: [facility] 09-28-2022 18:45-0400 Diastolic blood pressure 52 mm[Hg] [facility] Work Phone: [facility] 09-28-2022 18:45-0400 Heart rate 81 /min [facility] Work Phone: [facility] 09-28-2022 18:45-0400 Respiratory rate 20 /min [facility] Work Phone: [facility] 09-28-2022 18:45-0400 SaO2% (BldA) [Mass fraction] 97 % [facility] Work Phone: [facility] 09-28-2022 18:45-0400 Systolic blood pressure 139 mm[Hg] [facility] Work Phone: [facility] 09-28-2022 17:30-0400 Body height 160.02 cm Services [facility] Work Phone: [facility] 09-28-2022 17:30-0400 Body weight 108.86 kg Services [employer] Work Phone: [facility] 09-28-2022 17:28-0400 Body temperature 98.1 [degF] Services [employer] Work Phone: [facility] 09-26-2022 14:00-0400 Body height 162.56 cm Glen Garza Other [facility] [employer] Other 09-26-2022 14:00-0400 Diastolic blood pressure 70 mm[Hg] Glen Garza Other [facility] [employer] Other 09-26-2022 14:00-0400 SaO2% (BldA) [Mass fraction] 97 % Glen Garza Other [employer] [facility] [employer] Other 09-26-2022 14:00-0400 Systolic blood pressure 140 mm[Hg] Glen Garza Other [facility] [employer] Other 09-24-2022 17:58-0400 Body temperature 97.8 [degF] Services [employer] Work Phone: [facility] 09-24-2022 17:58-0400 Diastolic blood pressure 63 mm[Hg] [facility] Work Phone: [facility] 09-24-2022 17:58-0400 Heart rate 84 /min [facility] Work Phone: [facility] 09-24-2022 17:58-0400 Respiratory rate 20 /min [facility] Work Phone: [facility] 09-24-2022 17:58-0400 SaO2% (BldA) [Mass fraction] 97 % [facility] Work Phone: [facility] 09-24-2022 17:58-0400 Systolic blood pressure 129 mm[Hg] [facility] Work Phone: [facility] 09-24-2022 17:56-0400 Body height 160.02 cm [facility] Work Phone: [facility] 09-24-2022 17:56-0400 Body weight 107 kg [facility] Work Phone: [facility] 09-22-2022 22:23-0400 Body temperature 98.1 [degF] [facility] Work Phone: [facility] 09-22-2022 22:23-0400 Diastolic blood pressure 67 mm[Hg] [facility] Work Phone: [facility] 09-22-2022 22:23-0400 Heart rate 87 /min [facility] Work Phone: [facility] 09-22-2022 22:23-0400 Respiratory rate 24 /min [facility] Work Phone: [facility] 09-22-2022 22:23-0400 SaO2% (BldA) [Mass fraction] 96 % [facility] Work Phone: [facility] 09-22-2022 22:23-0400 Systolic blood pressure 126 mm[Hg] [facility] Work Phone: [facility] 09-22-2022 22:17-0400 Body height 160.02 cm [facility] Work Phone: [facility] 09-22-2022 22:17-0400 Body weight 104.32 kg [facility] Work Phone: [facility] 09-19-2022 12:24-0400 Diastolic blood pressure 70 mm[Hg] [facility] Work Phone: [facility] 09-19-2022 12:24-0400 Heart rate 63 /min [facility] Work Phone: [facility] 09-19-2022 12:24-0400 Respiratory rate 16 /min [facility] Work Phone: [facility] 09-19-2022 12:24-0400 SaO2% (BldA) [Mass fraction] 96 % [facility] Work Phone: [facility] 09-19-2022 12:24-0400 Systolic blood pressure 111 mm[Hg] [facility] Work Phone: [facility] 09-19-2022 11:49-0400 Inhaled oxygen flow rate 3 L/min [facility] Work Phone: [facility] 09-19-2022 10:59-0400 Body height 160.02 cm [facility] Work Phone: [facility] 09-19-2022 10:59-0400 Body weight 104.32 kg [facility] Work Phone: [facility] 09-18-2022 15:42-0400 Body height 160.02 cm [facility] Work Phone: [facility] 09-18-2022 15:42-0400 Body temperature 97.7 [degF] [facility] Work Phone: [facility] 09-18-2022 15:42-0400 Body weight 104.32 kg [facility] Work Phone: [facility] 09-18-2022 15:42-0400 Diastolic blood pressure 80 mm[Hg] [facility] Work Phone: [facility] 09-18-2022 15:42-0400 Heart rate 82 /min [facility] Work Phone: [facility] 09-18-2022 15:42-0400 Respiratory rate 18 /min [facility] Work Phone: [facility] 09-18-2022 15:42-0400 SaO2% (BldA) [Mass fraction] 97 % [facility] Work Phone: [facility] 09-18-2022 15:42-0400 Systolic blood pressure 140 mm[Hg] [facility] Work Phone: [facility] 09-11-2022 14:00-0400 Diastolic blood pressure 71 mm[Hg] [facility] Work Phone: [facility] 09-11-2022 14:00-0400 Heart rate 86 /min [facility] Work Phone: [facility] 09-11-2022 14:00-0400 Respiratory rate 20 /min [facility] Work Phone: [facility] 09-11-2022 14:00-0400 Systolic blood pressure 109 mm[Hg] [facility] Work Phone: [facility] 09-11-2022 12:59-0400 Body height 160.02 cm [facility] Work Phone: [facility] 09-11-2022 12:59-0400 Body temperature 98 [degF] [facility] Work Phone: [facility] 09-11-2022 12:59-0400 Body weight 104.32 kg [facility] Work Phone: [facility] 09-11-2022 12:59-0400 SaO2% (BldA) [Mass fraction] 98 % [facility] Work Phone: [facility] 09-05-2022 15:23-0400 Body height 160.02 cm [facility] Work Phone: [facility] 09-05-2022 15:23-0400 Body temperature 97.9 [degF] Services [employer] Work Phone: [facility] 09-05-2022 15:23-0400 Body weight 105.25 kg Services [employer] Work Phone: [facility] 09-05-2022 15:23-0400 Diastolic blood pressure 90 mm[Hg] Services [employer] [facility] Work Phone: [facility] 09-05-2022 15:23-0400 Heart rate 90 /min Services [facility] Work Phone: [facility] 09-05-2022 15:23-0400 Respiratory rate 20 /min Services [facility] Work Phone: [facility] 09-05-2022 15:23-0400 SaO2% (BldA) [Mass fraction] 98 % Services [employer] Work Phone: [facility] 09-05-2022 15:23-0400 Systolic blood pressure 151 mm[Hg] Services [facility] Work Phone: [facility] 09-04-2022 19:11-0400 Body temperature 98.42 [degF] Pedro Pablo Chance [facility] 09-04-2022 19:11-0400 Diastolic blood pressure 104 mm[Hg] Pedro Pablo Chance [facility] 09-04-2022 19:11-0400 Heart rate 101 /min Pedro Pablo Chance [facility] 09-04-2022 19:11-0400 Respiratory rate 18 /min Pedro Pablo Chance [facility] 09-04-2022 19:11-0400 SaO2% (BldA) [Mass fraction] 100 % Pedro Pablo Chance [facility] 09-04-2022 19:11-0400 Systolic blood pressure 141 mm[Hg] Pedro Pablo Perezner [facility] 09-04-2022 10:00-0400 Body height 162.56 cm Glen Garza Other [employer] Other 09-04-2022 10:00-0400 Body mass index (BMI) [Ratio] 40.16 kg/m2 Glen Garza Other [facility] [employer] Other 09-04-2022 10:00-0400 Body weight 106.14 kg Glen Garza Other [employer] [facility] [employer] Other 09-04-2022 10:00-0400 Diastolic blood pressure 70 mm[Hg] Glen Garza Other [facility] [employer] Other 09-04-2022 10:00-0400 SaO2% (BldA) [Mass fraction] 99 % Glen Kayla Other [facility] [employer] Other 09-04-2022 10:00-0400 Systolic blood pressure 110 mm[Hg] Glentito Garza Other [facility] [employer] Other 09-01-2022 15:00-0400 Body height 162.56 cm [facility] Work Phone: [facility] 09-01-2022 15:00-0400 Body temperature 97.7 [degF] [facility] Work Phone: [facility] 09-01-2022 15:00-0400 Body weight 104 kg [facility] Work Phone: [facility] 09-01-2022 15:00-0400 Diastolic blood pressure 73 mm[Hg] [facility] Work Phone: [facility] 09-01-2022 15:00-0400 Heart rate 96 /min [facility] Work Phone: [facility] 09-01-2022 15:00-0400 Respiratory rate 20 /min [facility] Work Phone: [facility] 09-01-2022 15:00-0400 SaO2% (BldA) [Mass fraction] 100 % [facility] Work Phone: [facility] 09-01-2022 15:00-0400 Systolic blood pressure 132 mm[Hg] [facility] Work Phone: [facility] 08-31-2022 20:05-0400 Body height 160.02 cm [facility] Work Phone: [facility] 08-31-2022 20:05-0400 Body temperature 97.8 [degF] [facility] Work Phone: [facility] 08-31-2022 20:05-0400 Body weight 103.7 kg [facility] Work Phone: [facility] 08-31-2022 20:05-0400 Diastolic blood pressure 76 mm[Hg] [facility] Work Phone: [facility] 08-31-2022 20:05-0400 Heart rate 94 /min [facility] Work Phone: [facility] 08-31-2022 20:05-0400 Respiratory rate 18 /min [facility] Work Phone: [facility] 08-31-2022 20:05-0400 SaO2% (BldA) [Mass fraction] 98 % [facility] Work Phone: [facility] 08-31-2022 20:05-0400 Systolic blood pressure 134 mm[Hg] [facility] Work Phone: [facility] 08-26-2022 15:35-0400 Body height 160.02 cm [facility] Work Phone: [facility] 08-26-2022 15:35-0400 Body temperature 98.1 [degF] [facility] Work Phone: [facility] 08-26-2022 15:35-0400 Body weight 104.6 kg [facility] Work Phone: [facility] 08-26-2022 15:35-0400 Diastolic blood pressure 59 mm[Hg] [facility] Work Phone: [facility] 08-26-2022 15:35-0400 Heart rate 94 /min Services [employer] [facility] Work Phone: [facility] 08-26-2022 15:35-0400 Respiratory rate 18 /min Services [employer] [facility] Work Phone: [facility] 08-26-2022 15:35-0400 SaO2% (BldA) [Mass fraction] 99 % Services [employer] [facility] Work Phone: [facility] 08-26-2022 15:35-0400 Systolic blood pressure 119 mm[Hg] Services [employer] Work Phone: [facility] 08-21-2022 08:40-0400 Body height 162.56 cm Rose Marie Shepherd Other [employer] Other 08-21-2022 08:40-0400 Body mass index (BMI) [Ratio] 40.16 kg/m2 Rose Marie Shepherd Other [employer] Other 08-21-2022 08:40-0400 Body weight 106.14 kg Rose Marie Shepherd Other [employer] Other 08-21-2022 08:40-0400 Diastolic blood pressure 78 mm[Hg] Rose Marie Shepherd Other [employer] Other 08-21-2022 08:40-0400 Systolic blood pressure 132 mm[Hg] Rose Marie Shepherd Other [employer] Other 08-17-2022 00:19-0400 Diastolic blood pressure 62 mm[Hg] [facility] Work Phone: [facility] 08-17-2022 00:19-0400 Heart rate 75 /min [facility] Work Phone: [facility] 08-17-2022 00:19-0400 Respiratory rate 20 /min [facility] Work Phone: [facility] 08-17-2022 00:19-0400 SaO2% (BldA) [Mass fraction] 97 % [facility] Work Phone: [facility] 08-17-2022 00:19-0400 Systolic blood pressure 127 mm[Hg] [facility] Work Phone: [facility] 08-16-2022 21:20-0400 Body height 160.02 cm [facility] Work Phone: [facility] 08-16-2022 21:20-0400 Body temperature 97.9 [degF] [facility] Work Phone: [facility] 08-16-2022 21:20-0400 Body weight 104.32 kg [facility] Work Phone: [facility] 08-13-2022 17:20-0400 Body height 160.02 cm [facility] Work Phone: [facility] 08-13-2022 17:20-0400 Body temperature 97.8 [degF] [facility] Work Phone: [facility] 08-13-2022 17:20-0400 Body weight 102.85 kg [facility] Work Phone: [facility] 08-13-2022 17:20-0400 Diastolic blood pressure 81 mm[Hg] [facility] Work Phone: [facility] 08-13-2022 17:20-0400 Heart rate 92 /min [facility] Work Phone: [facility] 08-13-2022 17:20-0400 Respiratory rate 20 /min [facility] Work Phone: [facility] 08-13-2022 17:20-0400 SaO2% (BldA) [Mass fraction] 96 % [facility] Work Phone: [facility] 08-13-2022 17:20-0400 Systolic blood pressure 140 mm[Hg] [facility] Work Phone: [facility] 08-06-2022 17:12-0400 Body height 160.02 cm [facility] Work Phone: [facility] 08-06-2022 17:12-0400 Body temperature 97.7 [degF] [facility] Work Phone: [facility] 08-06-2022 17:12-0400 Body weight 103.3 kg [facility] Work Phone: [facility] 08-06-2022 17:12-0400 Diastolic blood pressure 76 mm[Hg] [facility] Work Phone: [facility] 08-06-2022 17:12-0400 Heart rate 78 /min [facility] Work Phone: [facility] 08-06-2022 17:12-0400 Respiratory rate 20 /min [facility] Work Phone: [facility] 08-06-2022 17:12-0400 SaO2% (BldA) [Mass fraction] 98 % [facility] Work Phone: [facility] 08-06-2022 17:12-0400 Systolic blood pressure 130 mm[Hg] [facility] Work Phone: [facility] 08-02-2022 21:20-0400 Body height 160.02 cm [facility] Work Phone: [facility] 08-02-2022 21:20-0400 Body temperature 97.6 [degF] [facility] Work Phone: [facility] 08-02-2022 21:20-0400 Body weight 104.55 kg [facility] Work Phone: [facility] 08-02-2022 21:20-0400 Diastolic blood pressure 84 mm[Hg] [facility] Work Phone: [facility] 08-02-2022 21:20-0400 Heart rate 74 /min [facility] Work Phone: [facility] 08-02-2022 21:20-0400 Respiratory rate 22 /min [facility] Work Phone: [facility] 08-02-2022 21:20-0400 SaO2% (BldA) [Mass fraction] 97 % [facility] Work Phone: [facility] 08-02-2022 21:20-0400 Systolic blood pressure 174 mm[Hg] [facility] Work Phone: [facility] 06-16-2022 12:24-0400 Body height 160.02 cm [facility] Work Phone: [facility] 06-16-2022 12:24-0400 Body temperature 97.5 [degF] [facility] Work Phone: [facility] 06-16-2022 12:24-0400 Body weight 104 kg [facility] Work Phone: [facility] 06-16-2022 12:24-0400 Diastolic blood pressure 68 mm[Hg] [facility] Work Phone: [facility] 06-16-2022 12:24-0400 Heart rate 69 /min [facility] Work Phone: [facility] 06-16-2022 12:24-0400 Respiratory rate 20 /min [facility] Work Phone: [facility] 06-16-2022 12:24-0400 SaO2% (BldA) [Mass fraction] 97 % [facility] Work Phone: [facility] 06-16-2022 12:24-0400 Systolic blood pressure 151 mm[Hg] [facility] Work Phone: [facility] 03-30-2022 13:10-0500 Diastolic blood pressure 60 mm[Hg] [facility] Work Phone: [facility] 03-30-2022 13:10-0500 Heart rate 79 /min [facility] Work Phone: [facility] 03-30-2022 13:10-0500 Respiratory rate 18 /min [facility] Work Phone: [facility] 03-30-2022 13:10-0500 SaO2% (BldA) [Mass fraction] 98 % [facility] Work Phone: [facility] 03-30-2022 13:10-0500 Systolic blood pressure 118 mm[Hg] [facility] Work Phone: [facility] 03-30-2022 10:09-0500 Body height 160.02 cm [facility] Work Phone: [facility] 03-30-2022 10:09-0500 Body temperature 98.3 [degF] [facility] Work Phone: [facility] 03-30-2022 10:09-0500 Body weight 107.95 kg [facility] Work Phone: [facility] 03-19-2022 18:13-0500 Diastolic blood pressure 64 mm[Hg] [facility] Work Phone: [facility] 03-19-2022 18:13-0500 Heart rate 51 /min [facility] Work Phone: [facility] 03-19-2022 18:13-0500 Respiratory rate 20 /min [facility] Work Phone: [facility] 03-19-2022 18:13-0500 SaO2% (BldA) [Mass fraction] 97 % [facility] Work Phone: [facility] 03-19-2022 18:13-0500 Systolic blood pressure 121 mm[Hg] [facility] Work Phone: [facility] 03-19-2022 14:37-0500 Body height 160.02 cm [facility] Work Phone: [facility] 03-19-2022 14:37-0500 Body temperature 97.5 [degF] [facility] Work Phone: [facility] 03-19-2022 14:37-0500 Body weight 108.25 kg [facility] Work Phone: [facility] 03-17-2022 18:14-0500 Diastolic blood pressure 79 mm[Hg] [facility] Work Phone: [facility] 03-17-2022 18:14-0500 Heart rate 79 /min [facility] Work Phone: [facility] 03-17-2022 18:14-0500 Respiratory rate 19 /min [facility] Work Phone: [facility] 03-17-2022 18:14-0500 SaO2% (BldA) [Mass fraction] 98 % [facility] Work Phone: [facility] 03-17-2022 18:14-0500 Systolic blood pressure 118 mm[Hg] [facility] Work Phone: [facility] 03-17-2022 14:45-0500 Body height 160.02 cm [facility] Work Phone: [facility] 03-17-2022 14:45-0500 Body temperature 97.9 [degF] [facility] Work Phone: [facility] 03-17-2022 14:45-0500 Body weight 108.85 kg [facility] Work Phone: [facility] 03-14-2022 19:09-0500 Diastolic blood pressure 61 mm[Hg] [facility] Work Phone: [facility] 03-14-2022 19:09-0500 Heart rate 61 /min [facility] Work Phone: [facility] 03-14-2022 19:09-0500 Respiratory rate 16 /min [facility] Work Phone: [facility] 03-14-2022 19:09-0500 SaO2% (BldA) [Mass fraction] 96 % [facility] Work Phone: [facility] 03-14-2022 19:09-0500 Systolic blood pressure 111 mm[Hg] [facility] Work Phone: [facility] 03-14-2022 15:23-0500 Body height 160.02 cm [facility] Work Phone: [facility] 03-14-2022 15:23-0500 Body temperature 97.4 [degF] [facility] Work Phone: [facility] 03-14-2022 15:23-0500 Body weight 108.3 kg [facility] Work Phone: [facility] 02-03-2022 21:30-0500 Body temperature 97.9 [degF] [facility] Work Phone: [facility] 02-03-2022 21:30-0500 Diastolic blood pressure 87 mm[Hg] [facility] Work Phone: [facility] 02-03-2022 21:30-0500 Heart rate 70 /min [facility] Work Phone: [facility] 02-03-2022 21:30-0500 Respiratory rate 16 /min [facility] Work Phone: [facility] 02-03-2022 21:30-0500 SaO2% (BldA) [Mass fraction] 99 % [facility] Work Phone: [facility] 02-03-2022 21:30-0500 Systolic blood pressure 142 mm[Hg] [facility] Work Phone: [facility] 02-03-2022 17:12-0500 Body height 163.83 cm [facility] Work Phone: [facility] 02-03-2022 17:12-0500 Body weight 110 kg [facility] Work Phone: [facility] 01-21-2022 20:16-0400 Body height 160.02 cm [facility] Work Phone: [facility] 01-21-2022 20:16-0400 Body temperature 98.2 [degF] [facility] Work Phone: [facility] 01-21-2022 20:16-0400 Body weight 111.25 kg [facility] Work Phone: [facility] 01-21-2022 20:16-0400 Diastolic blood pressure 77 mm[Hg] [facility] Work Phone: [facility] 01-21-2022 20:16-0400 Heart rate 107 /min [facility] Work Phone: [facility] 01-21-2022 20:16-0400 Respiratory rate 22 /min [facility] Work Phone: [facility] 01-21-2022 20:16-0400 SaO2% (BldA) [Mass fraction] 98 % [facility] Work Phone: [facility] 01-21-2022 20:16-0400 Systolic blood pressure 134 mm[Hg] [facility] Work Phone: [facility] 11-14-2021 00:54-0400 Diastolic blood pressure 70 mm[Hg] [facility] Work Phone: [facility] 11-14-2021 00:54-0400 Heart rate 81 /min [facility] Work Phone: [facility] 11-14-2021 00:54-0400 Respiratory rate 20 /min [facility] Work Phone: [facility] 11-14-2021 00:54-0400 SaO2% (BldA) [Mass fraction] 99 % [facility] Work Phone: [facility] 11-14-2021 00:54-0400 Systolic blood pressure 122 mm[Hg] [facility] Work Phone: [facility] 11-13-2021 18:29-0400 Body height 160.02 cm [facility] Work Phone: [facility] 11-13-2021 18:29-0400 Body temperature 97.6 [degF] [facility] Work Phone: [facility] 11-13-2021 18:29-0400 Body weight 108.86 kg [facility] Work Phone: [facility] 10-18-2021 20:30-0400 Body height 160.02 cm [facility] Work Phone: [facility] 10-18-2021 20:30-0400 Body temperature 98 [degF] [facility] Work Phone: [facility] 10-18-2021 20:30-0400 Body weight 109.6 kg [facility] Work Phone: [facility] 10-18-2021 20:30-0400 Diastolic blood pressure 89 mm[Hg] [facility] Work Phone: [facility] 10-18-2021 20:30-0400 Heart rate 87 /min [facility] Work Phone: [facility] 10-18-2021 20:30-0400 Respiratory rate 22 /min [facility] Work Phone: [facility] 10-18-2021 20:30-0400 SaO2% (BldA) [Mass fraction] 99 % [facility] Work Phone: [facility] 10-18-2021 20:30-0400 Systolic blood pressure 149 mm[Hg] [facility] Work Phone: [facility] 10-10-2021 01:28-0400 Diastolic blood pressure 71 mm[Hg] [facility] Work Phone: [facility] 10-10-2021 01:28-0400 Heart rate 70 /min [facility] Work Phone: [facility] 10-10-2021 01:28-0400 Respiratory rate 18 /min [facility] Work Phone: [facility] 10-10-2021 01:28-0400 SaO2% (BldA) [Mass fraction] 98 % [facility] Work Phone: [facility] 10-10-2021 01:28-0400 Systolic blood pressure 159 mm[Hg] [facility] Work Phone: [facility] 10-09-2021 20:44-0400 Body height 160.02 cm [facility] Work Phone: [facility] 10-09-2021 20:44-0400 Body mass index (BMI) [Ratio] 42.5 kg/m2 [facility] Work Phone: [facility] 10-09-2021 20:44-0400 Body temperature 98.2 [degF] [facility] Work Phone: [facility] 10-09-2021 20:44-0400 Body weight 108.86 kg [facility] Work Phone: [facility] 09-13-2021 18:42-0400 Heart rate 93 /min [facility] Work Phone: [facility] 09-13-2021 17:16-0400 Body height 160.02 cm [facility] Work Phone: [facility] 09-13-2021 17:16-0400 Body mass index (BMI) [Ratio] 42.7 kg/m2 [facility] Work Phone: [facility] 09-13-2021 17:16-0400 Body temperature 98.5 [degF] [facility] Work Phone: [facility] 09-13-2021 17:16-0400 Body weight 109.45 kg Services [facility] Work Phone: [facility] 09-13-2021 17:16-0400 Diastolic blood pressure 78 mm[Hg] Services [facility] Work Phone: [facility] 09-13-2021 17:16-0400 Respiratory rate 20 /min Services [facility] Work Phone: [facility] 09-13-2021 17:16-0400 SaO2% (BldA) [Mass fraction] 96 % Services [facility] Work Phone: [facility] 09-13-2021 17:16-0400 Systolic blood pressure 136 mm[Hg] Services [facility] Work Phone: [facility] 03-30-2021 10:30-0500 Body height 162.56 cm Avery Goodman Other [facility] [employer] Other Functional Status Date Assessment Result Facility 09-20-2023 Functional Status N/A [facility] 09-17-2023 Functional Status N/A [facility] 09-09-2023 Functional Status N/A [facility] 09-06-2023 Functional Status N/A [facility] 09-02-2023 Functional Status N/A [facility] 08-30-2023 Functional Status N/A [facility] 08-15-2023 Functional Status N/A [facility] 08-14-2023 Functional Status N/A [facility] 08-12-2023 Functional Status N/A [facility] 08-05-2023 Functional Status N/A [facility] 08-02-2023 Functional Status N/A [facility] 07-31-2023 Functional Status N/A [facility] 07-26-2023 Functional Status N/A [facility] 07-17-2023 Functional Status N/A [facility] 07-15-2023 Functional Status N/A [facility] 07-14-2023 Functional Status N/A [facility] 07-11-2023 Functional Status N/A [facility] 07-06-2023 Functional Status N/A [facility] 06-29-2023 Functional Status N/A [facility] 06-27-2023 Functional Status N/A [facility] 06-24-2023 Functional Status N/A [facility] 06-22-2023 Functional Status N/A [facility] 06-15-2023 Functional Status N/A [facility] 06-11-2023 Functional Status N/A [facility] 06-03-2023 Functional Status N/A [facility] 05-31-2023 Functional Status N/A [facility] 05-26-2023 Functional Status N/A [facility] 05-24-2023 Functional Status N/A [facility] 05-16-2023 Functional Status N/A [facility] 05-14-2023 Functional Status N/A [facility] 05-12-2023 Functional Status N/A [facility] 05-11-2023 Functional Status N/A [facility] 05-08-2023 Functional Status N/A [facility] 04-26-2023 Functional Status N/A [facility] 04-22-2023 Functional Status N/A [facility] 04-11-2023 Functional Status N/A [facility] 04-10-2023 Functional Status N/A [facility] 04-05-2023 Functional Status N/A [facility] 04-02-2023 Functional Status N/A [facility] 03-26-2023 Functional Status N/A [facility] 03-23-2023 Functional Status N/A [facility] 03-20-2023 Functional Status N/A [facility] 03-11-2023 Functional Status N/A [facility] 02-12-2023 Functional Status N/A [facility] 02-07-2023 Functional Status N/A [facility] 01-29-2023 Functional Status N/A [facility] 01-22-2023 Functional Status N/A [facility] 01-14-2023 Functional Status N/A [facility] 01-12-2023 Functional Status N/A [facility] 01-10-2023 Functional Status N/A [facility] 01-04-2023 Functional Status N/A [facility] 01-02-2023 Functional Status N/A [facility] 12-26-2022 Functional Status N/A [facility] 12-23-2022 Functional Status N/A [facility] 12-18-2022 Functional Status N/A [facility] 12-13-2022 Functional Status N/A [facility] 12-12-2022 Functional Status N/A [facility] 12-07-2022 Functional Status N/A [facility] 09-04-2022 Functional Status N/A [facility] Clinical Notes 02-15-2021 to 09-20-2023 Note Date & Type Note Facility 09-20-2023 Evaluation + Plan note Extrac lisa from: Title:ED Note Author:Robert Taylor PA-C te:09/20/23 Chronic back pain (M54.9: Do rsalgia, unspecified) Other chronic pain (G89.29: Other chronic pain) Orders: oxycodone, 10 mg = 2 tab(s), Tab, Oral, Once, Stop date 09/20/23 11:15:00 EDT, STAT, Start date 09/20/23 11:15:00 EDT, 09/20/23 11:15:00 EDT Future Appointments Appointment Date:11/13/2023 08:00:00 AM Scheduled Provider:Domenic Sher DO Location:.[facility] [place] Appointment Type:Pain Management - Follow Up (FT) Future Scheduled Tests Laboratory* TSH With T4fr Reflex 07/17/23 * Urinalysis with Micro 07/17/23 * Lipid Panel 07/17/23 * Drug Screen Urine 07/17/23 Radiology* MA Mamm Screen w/CAD if perf and 3D Kenan 07/17/23 [facility]06[facility]24 Hospital Discharge instructions Patient Education 09/20/2023 11:31:16 Chronic Obstructive Pulmonary Disease, [id number] Chronic Obstructive Pulmonary Disease Chronic obstructive pulmonary disease (COPD) is a long-term (chronic) lung problem. When you have COPD, it is hard for air to get in and out of your lungs. Usually the condition gets worse over time, and your lungs will never return to normal. There are things you can do to keep yourself as healthy as possible. What are the causes? Smoking. This is the most common cause. Certain genes passed from parent to child (inherited). What increases the risk? Being exposed to secondhand smoke from cigarettes, pipes, or cigars. Being exposed to chemicals and other irritants, such as fumes and dust in the work environment. Having chronic lung conditions or infections. What are the signs or symptoms? Shortness of breath, especially during physical activity. A long-term cough with a large amount of thick mucus. Sometimes, the cough may not have any mucus (dry cough). Wheezing. Breathing quickly. Skin that looks castro or blue, especially in the fingers, toes, or lips. Feeling tired (fatigue). Weight loss. Chest tightness. Having infections often. Episodes when breathing symptoms become much worse (exacerbations). At the later stages of this disease, you may have swelling in the ankles, feet, or legs. How is this treated? Taking medicines. Quitting smoking, if you smoke. Rehabilitation. This includes steps to make your body work better. It may involve a team of specialists. Doing exercises. Making changes to your diet. Using oxygen. Lung surgery. Lung transplant. Comfort measures (palliative care). Follow these instructions at home: Medicines Take nrxk-nwk-ynwauuh and prescription medicines only as told by your doctor. Talk to your doctor before taking any cough or allergy medicines. You may need to avoid medicines that cause your lungs to be dry. Lifestyle If you smoke, stop smoking. Smoking makes the problem worse. Do not smoke or use any products that contain nicotine or tobacco. If you need help quitting, ask your doctor. Avoid being around things that make your breathing worse. This may include smoke, chemicals, and fumes. Stay active, but remember to rest as well. Learn and use tips on how to manage stress and control your breathing. Make sure you get enough sleep. Most adults need at least 7 hours of sleep every night. Eat healthy foods. Eat smaller meals more often. Rest before meals. Controlled breathing Learn and use tips on how to control your breathing as told by your doctor. Try: Breathing in (inhaling) through your nose for 1 second. Then, pucker your lips and breath out (exhale) through your lips for 2 seconds. Putting one hand on your belly (abdomen). Breathe in slowly through your nose for 1 second. Your hand on your belly should move out. Pucker your lips and breathe out slowly through your lips. Your hand on your belly should move in as you breathe out. Controlled coughing Learn and use controlled coughing to clear mucus from your lungs. Follow these steps: 1.Lean your head a little forward. 2.Breathe in deeply. 3.Try to hold your breath for 3 seconds. 4.Keep your mouth slightly open while coughing 2 times. 5.Spit any mucus out into a tissue. 6.Rest and do the steps again 1 or 2 times as needed. General instructions Make sure you get all the shots (vaccines) that your doctor recommends. Ask your doctor about a flushot and a pneumonia shot. Use oxygen therapy and pulmonary rehabilitation if told by your doctor. If you need home oxygen therapy, ask your doctor if you should buy a tool to measure your oxygen level (oximeter). Make a COPD action plan with your doctor. This helps you to know what to do if you feel worse than usual. Manage any other conditions you have as told by your doctor. Avoid going outside when it is very hot, cold, or humid. Avoid people who have a sickness you can catch (contagious). Keep all follow-up visits. Contact a doctor if: You cough up more mucus than usual. There is a change in the color or thickness of the mucus. It is harder to breathe than usual. Your breathing is faster than usual. You have trouble sleeping. You need to use your medicines more often than usual. You have trouble doing your normal activities such as getting dressed or walking around the house. Get help right away if: You have shortness of breath while resting. You have shortness of breath that stops you from: ?Being able to talk. ?Doing normal activities. Your chest hurts for longer than 5 minutes. Your skin color is more blue than usual. Your pulse oximeter shows that you have low oxygen for longer than 5 minutes. You have a fever. You feel too tired to breathe normally. These symptoms may represent a serious problem that is an emergency. Do not wait to see if the symptoms will go away. Get medical help right away. Call your local emergency services (911 in the [place] Do not drive yourself to the hospital. Summary Chronic obstructive pulmonary disease (COPD) is a long-term lung problem. The way your lungs work will never return to normal. Usually the condition gets worse over time. There are things you can do to keep yourself as healthy as possible. Take imfv-kpb-kscetww and prescription medicines only as told by your doctor. If you smoke, stop. Smoking makes the problem worse. This information is not intended to replace advice given to you by your health care provider. Make sure you discuss any questions you have with your health care provider. Document Revised: 01/17/2021 Document Reviewed: 01/17/2021 [employer] Patient Education 2022 [email or web address]. Follow Up Care 09/20/2023 10:52:05 With:Cheyanne Rosas Address[address] [place] [id number] Business (1) When:09/23/2023 11:16:15 [facility]06[facility]24 Hospital Discharge instructions Patient Education 09/17/2023 17:50:54 BMI for Adults BMI for Adults What is BMI? Body mass index (BMI) is a number that is calculated from a person's weight and height. BMI can help estimate how much of a person's weight is composed of fat. BMI does not measure body fat directly.Rather, it is an alternative to procedures that directly measure body fat, which can be difficult and expensive. BMI can help identify people who may be at higher risk for certain medical problems. What are BMI measurements used for? BMI is used as a screening tool to identify possible weight problems. It helps determine whether a person is obese, overweight, a healthy weight, or underweight. BMI is useful for: Identifying a weight problem that may be related to a medical condition or may increase the risk for medical problems. Promoting changes, such as changes in diet and exercise, to help reach a healthy weight. BMI screening can be repeated to see if these changes are working. How is BMI calculated? BMI involves measuring your weight in relation to your height. Both height and weight are measured,and the BMI is calculated from those numbers. This can be done either in [place] ([place] or metric measurements. Note that charts and online BMI calculators are available to help you find your BMI quickly and easily without having to do these calculations yourself. To calculate your BMI in [place] measurements: 1.Measure your weight in pounds (lb). 2.Multiply the number of pounds by 703. For example, for a person who weighs 180 lb, multiply that number by 703, which equals 126,540. 3.Measure your height in inches. Then multiply that number by itself to get a measurement called inches squared. For example, for a person who is 70 inches tall, the inches squared measurement is 70 inches x 70inches, which equals 4,900 inches squared. 4.Divide the total from step 2 (number of lb x 703) by the total from step 3 (inches squared): 126,540 4,900 = 25.8. This is your BMI. To calculate your BMI in metric measurements: 1.Measure your weight in kilograms (kg). 2.Measure your height in meters (m). Then multiply that number by itself to get a measurement called meters squared. For example, for a person who is 1.75 m tall, the meters squared measurement is 1.75 m x 1.75 m, which is equal to 3.1 meters squared. 3.Divide the number of kilograms (your weight) by the meters squared number. In this example: 70 3.1 = 22.6. This is your BMI. What do the results mean? BMI charts are used to identify whether you are underweight, normal weight, overweight, or obese. The following guidelines will be used: Underweight: BMI less than 18.5. Normal weight: BMI between 18.5 and 24.9. Overweight: BMI between 25 and 29.9. Obese: BMI of 30 or above. Keep these notes in mind: Weight includes both fat and muscle, so someone with a muscular build, such as an athlete, may havea BMI that is higher than 24.9. In cases like these, BMI is not an accurate measure of body fat. To determine if excess body fat is the cause of a BMI of 25 or higher, further assessments may needto be done by a health care provider. BMI is usually interpreted in the same way for men and women. Where to find more information For more information about BMI, including tools to quickly calculate your BMI, go to these websites: Centers for Disease Control and Prevention: www.cdc.gov [place] [employer]: www.heart.org National Heart, Lung, and Blood [place]: www.nhlbi.nih.gov Summary Body mass index (BMI) is a number that is calculated from a person's weight and height. BMI may help estimate how much of a person's weight is composed of fat. BMI can help identify thosewho may be at higher risk for certain medical problems. BMI can be measured using Malaysian measurements or metric measurements. BMI charts are used to identify whether you are underweight, normal weight, overweight, or obese. This information is not intended to replace advice given to you by your health care provider. Make sure you discuss any questions you have with your health care provider. Document Revised: 12/02/2019 Document Reviewed: 10/09/2019 [employer] Patient Education 2022 [email or web address]. 09/17/2023 17:50:52 Steps to Quit Smoking Steps to Quit Smoking Smoking tobacco is the leading cause of preventable . It can affect almost every organ in the body. Smoking puts you and those around you at risk for developing many serious chronic diseases. Quitting smoking can be very challenging. Do not get discouraged if you are not successful the first time. Some people need to make many attempts to quit before they achieve long-term success. Do your best to stick to your quit plan, and talk with your health care provider if you have any questionsor concerns. How do I get ready to quit? When you decide to quit smoking, create a plan to help you succeed. Before you quit: Pick a date to quit. Set a date within the next 2 weeks to give you time to prepare. Write down the reasons why you are quitting. Keep this list in places where you will see it often. Tell your family, friends, and co-workers that you are quitting. Support from people you are close to can make quitting easier. Talk with your health care provider about your options for quitting smoking. Find out what treatment options are covered by your health insurance. Identify people, places, things, and activities that make you want to smoke (triggers). Avoid them. What first steps can I take to quit smoking? Throw away all cigarettes at home, at work, and in your car. Throw away smoking accessories, such as ashtrays and lighters. Clean your car. Make sure to empty the ashtray. Clean your home, including curtains and carpets. What strategies can I use to quit smoking? Talk with your health care provider about combining strategies, such as taking medicines while you are also receiving in-person counseling. Using these two strategies together makes you more likely to succeed in quitting than if you used either strategy on its own. If you are or , talk with your health care provider about finding counseling or other support strategies to quit smoking. Do not take medicine to help you quit smoking unless your health care provider tells you to. Quit right away Quit smoking completely, instead of gradually reducing how much you smoke over a period of time. Stopping smoking right away may be more successful than gradually quitting. Attend in-person counseling to help you build problem-solving skills. You are more likely to succeed in quitting if you attend counseling sessions regularly. Even short sessions of 10 minutes can be effective. Take medicine You may take medicines to help you quit smoking. Some medicines require a prescription. You can also purchase serb-sij-jteainh medicines. Medicines may have nicotine in them to replace the nicotine in cigarettes. Medicines may: Help to stop cravings. Help to relieve withdrawal symptoms. Your health care provider may recommend: Nicotine patches, gum, or lozenges. Nicotine inhalers or sprays. Non-nicotine medicine that you take by mouth. Find resources Find resources and support systems that can help you quit smoking and remain smoke-free after you quit. These resources are most helpful when you use them often. They include: Online chats with a counselor. Telephone quitlines. Printed self-help materials. Support groups or group counseling. Text messaging programs. Mobile phone apps or applications. Use apps that can help you stick to your quit plan by providing reminders, tips, and encouragement. Examples of free services include Quit Guide from the CDC and smokefree.gov What can I do to make it easier to quit? Reach out to your family and friends for support and encouragement. Call telephone quitlines, such as 3-782-OGHW-NOW, reach out to support groups, or work with a counselor for support. Ask people who smoke to avoid smoking around you. Avoid places that trigger you to smoke, such as bars, parties, or smoke-break areas at work. Spend time with people who do not smoke. Lessen the stress in your life. Stress can be a smoking trigger for some people. To lessen stress, try: ?Exercising regularly. ?Doing deep-breathing exercises. ?Doing yoga. ?Meditating. What benefits will I see if I quit smoking? Over time, you should start to see positive results, such as: Improved sense of smell and taste. Decreased coughing and sore throat. Slower heart rate. Lower blood pressure. Clearer and healthier skin. The ability to breathe more easily. Fewer sick days. Summary Quitting smoking can be very challenging. Do not get discouraged if you are not successful the first time. Some people need to make many attempts to quit before they achieve long-term success. When you decide to quit smoking, create a plan to help you succeed. Quit smoking right away, not slowly over a period of time. Find resources and support systems that can help you quit smoking and remain smoke-free after you quit. This information is not intended to replace advice given to you by your health care provider. Make sure you discuss any questions you have with your health care provider. Document Revised: 03/02/2022 Document Reviewed: 03/02/2022 [employer] Patient Education 2022 [employer] 09/17/2023 17:50:51 Health Risks of Smoking Health Risks of Smoking Smoking tobacco is very bad for your health. Tobacco smoke contains many toxic chemicals that can damage every part of your body. Secondhand smoke can be harmful to those around you. Tobacco or nicotine use can cause many long-term (chronic) diseases. Smoking is difficult to quit because a chemical in tobacco, called nicotine, causes addiction or dependence. When you smoke and inhale, nicotine is absorbed quickly into your bloodstream through yourlungs. Both inhaled and non-inhaled nicotine may be addictive. How can quitting affect me? There are health benefits of quitting smoking. Some benefits happen right away and others take time. Benefits may include: Blood flow, blood pressure, heart rate, and lung capacity may begin to improve. However, any lung damage that has already occurred cannot be repaired. Respiratory symptoms from smoking, such as nasal congestion and cough, may improve over time. Your risk of heart disease, stroke, and cancer is reduced. The overall quality of your health may improve. You may save money, as you will not spend money on tobacco products and may spend less money on smoking-related health issues. What can increase my risk? Smoking harms nearly every organ in the body. People who smoke tobacco have a shorter life expectancy and an increased risk of many serious medical problems. These include: More respiratory infections, such as colds and pneumonia. Cancer. Heart disease. Stroke. Chronic respiratory diseases. Delayed wound healing and increased risk of complications during surgery. Problems with reproduction, , and childbirth, such as infertility, early (premature) births, stillbirths, and defects. Secondhand smoke exposure to children increases the risk of: Sudden infant syndrome (SIDS). Infections in the nose, throat, or airways (respiratory infections). Chronic respiratory symptoms. What actions can I take to quit? Smoking is an addiction that affects both your body and your mind, and long-time habits can be hardto change. Your health care provider can recommend: Nicotine replacement products, such as patches, gum, and nasal sprays. Use these products only as directed. Do not replace cigarette smoking with electronic cigarettes, which are commonly called e-cigarettes. The safety of e-cigarettes is not known, and some may contain harmful chemicals. Programs and community resources, which may include group support, education, or talk therapy. Prescription medicines to help reduce cravings. A combination of two or more quit methods, which may increase the success of quitting. Where to find support Follow the recommendations from your health care provider about support groups and other assistance. You can also visit: [place] Department of Health and Human Services: www.smokefree.gov [place] [employer]: www.freedomfromsmoking.org [place] [employer] Association: www.heart.org Where to find more information Centers for Disease Control and Prevention: www.cdc.gov World Health Organization: www.who.int Summary Smoking tobacco is very bad for your health. Tobacco smoke contains many toxic chemicals that can damage every part of the body. Smoking is difficult to quit because a chemical in tobacco, called nicotine, causes addiction or dependence. There are immediate and long-term health benefits of quitting smoking. A combination of two or more quit methods may increase the success of quitting. This information is not intended to replace advice given to you by your health care provider. Make sure you discuss any questions you have with your health care provider. Document Revised: 03/13/2022 Document Reviewed: 03/13/2022 [employer] Patient Education 2022 [email or web address]. Follow Up Care 09/17/2023 17:37:01 With:Ralph BEYER, VANESSA Aaron, [facility] Address: [facility] Emmanuel Oswald, [facility] [address] [phone]- When: Unknown [facility] 06-18-2024 Hospital Discharge instructions Patient Education 09/09/2023 23:26:42 Chronic Back Pain, Jlrd-oa-Glux Chronic Back Pain When back pain lasts longer than 3 months, it is called chronic back pain. Pain may get worse at certain times (flare-ups). There are things you can do at home to manage your pain. Follow these instructions at home: Pay attention to any changes in your symptoms. Take these actions to help with your pain: Managing pain and stiffness If told, put ice on the painful area. Your doctor may tell you to use ice for 24 48 hours after theflare-up starts. To do this: ?Put ice in a plastic bag. ?Place a towel between your skin and the bag. ?Leave the ice on for 20 minutes, 2 3 times a day. If told, put heat on the painful area. Do this as often as told by your doctor. Use the heat sourcethat your doctor recommends, such as a moist heat pack or a heating pad. ?Place a towel between your skin and the heat source. ?Leave the heat on for 20 30 minutes. ?Take off the heat if your skin turns bright red. This is especially important if you are unable tofeel pain, heat, or cold. You may have a greater risk of getting burned. Soak in a warm bath. This can help relieve pain. Activity Avoid bending and other activities that make pain worse. When standing: ?Keep your upper back and neck straight. ?Keep your shoulders pulled back. ?Avoid slouching. When sitting: ?Keep your back straight. ?Relax your shoulders. Do not round your shoulders or pull them backward. Do not sit or intelligence consultant one place for long periods of time. Take short rest breaks during the day. Lying down or standing is usually better than sitting. Resting can help relieve pain. When sitting or lying down for a long time, do some mild activity or stretching. This will help to prevent stiffness and pain. Get regular exercise. Ask your doctor what activities are safe for you. Do not lift anything that is heavier than 10 lb (4.5 kg) or the limit that you are told, until yourdoctor says that it is safe. To prevent injury when you lift things: ?Bend your knees. ?Keep the weight close to your body. ?Avoid twisting. Sleep on a firm mattress. Try lying on your side with your knees slightly bent. If you lie on your back, put a pillow under your knees. Medicines Treatment may include medicines for pain and swelling taken by mouth or put on the skin, prescription pain medicine, or muscle relaxants. Take qkxg-pye-pnzzjyn and prescription medicines only as told by your doctor. Ask your doctor if the medicine prescribed to you: ?Requires you to avoid driving or using machinery. ?Can cause trouble pooping (constipation). You may need to take these actions to prevent or treat trouble pooping: ?Drink enough fluid to keep your pee (urine) pale yellow. ?Take exur-qhs-bcguokh or prescription medicines. ?Eat foods that are high in fiber. These include beans, whole grains, and fresh fruits and vegetables. ?Limit foods that are high in fat and sugars. These include fried or sweet foods. General instructions Do not use any products that contain nicotine or tobacco, such as cigarettes, e- cigarettes, and chewing tobacco. If you need help quitting, ask your doctor. Keep all follow-up visits as told by your doctor. This is important. Contact a doctor if: Your pain does not get better with rest or medicine. Your pain gets worse, or you have new pain. You have a high fever. You lose weight very quickly. You have trouble doing your normal activities. Get help right away if: One or both of your legs or feet feel weak. One or both of your legs or feet lose feeling (have numbness). You have trouble controlling when you poop (have a bowel movement) or pee (urinate). You have bad back pain and: ?You feel like you may vomit (nauseous), or you vomit. ?You have pain in your belly (abdomen). ?You have shortness of breath. ?You faint. Summary When back pain lasts longer than 3 months, it is called chronic back pain. Pain may get worse at certain times (flare-ups). Use ice and heat as told by your doctor. Your doctor may tell you to use ice after flare-ups. This information is not intended to replace advice given to you by your health care provider. Make sure you discuss any questions you have with your health care provider. Document Revised: 04/20/2020 Document Reviewed: 04/20/2020 [employer] Patient Education 2022 [email or web address]. 09/09/2023 23:26:42 Acute Back Pain, Adult Acute Back Pain, Adult Acute back pain is sudden and usually short-lived. It is often caused by an injury to the muscles and tissues in the back. The injury may result from: A muscle, tendon, or ligament getting overstretched or torn. Ligaments are tissues that connect bones to each other. Lifting something improperly can cause a back strain. Wear and tear (degeneration) of the spinal disks. Spinal disks are circular tissue that provide cushioning between the bones of the spine (vertebrae). Twisting motions, such as while playing sports or doing yard work. A hit to the back. Arthritis. You may have a physical exam, lab tests, and imaging tests to find the cause of your pain. Acute back pain usually goes away with rest and home care. Follow these instructions at home: Managing pain, stiffness, and swelling Take wwlp-uyq-sozrgbc and prescription medicines only as told by your health care provider. Treatment may include medicines for pain and inflammation that are taken by mouth or applied to the skin, or muscle relaxants. Your health care provider may recommend applying ice during the first 24 48 hours after your pain starts. To do this: ?Put ice in a plastic bag. ?Place a towel between your skin and the bag. ?Leave the ice on for 20 minutes, 2 3 times a day. ?Remove the ice if your skin turns bright red. This is very important. If you cannot feel pain, heat, or cold, you have a greater risk of damage to the area. If directed, apply heat to the affected area as often as told by your health care provider. Use theheat source that your health care provider recommends, such as a moist heat pack or a heating pad. ?Place a towel between your skin and the heat source. ?Leave the heat on for 20 30 minutes. ?Remove the heat if your skin turns bright red. This is especially important if you are unable to feel pain, heat, or cold. You have a greater risk of getting burned. Activity Do not stay in bed. Staying in bed for more than 1 2 days can delay your recovery. Sit up and stand up straight. Avoid leaning forward when you sit or hunching over when you stand. ?If you work at a desk, sit close to it so you do not need to lean over. Keep your chin tucked in. Keep your neck drawn back, and keep your elbows bent at a 90-degree angle (right angle). ?Sit high and close to the steering wheel when you drive. Add lower back (lumbar) support to your car seat, if needed. Take short walks on even surfaces as soon as you are able. Try to increase the length of time you walk each day. Do not sit, drive, or intelligence consultant one place for more than 30 minutes at a time. Sitting or standing for long periods of time can put stress on your back. Do not drive or use heavy machinery while taking prescription pain medicine. Use proper lifting techniques. When you bend and lift, use positions that put less stress on your back: ?Bend your knees. ?Keep the load close to your body. ?Avoid twisting. Exercise regularly as told by your health care provider. Exercising helps your back heal faster andhelps prevent back injuries by keeping muscles strong and flexible. Work with a physical therapist to make a safe exercise program, as recommended by your health care provider. Do any exercises as told by your physical therapist. Lifestyle Maintain a healthy weight. Extra weight puts stress on your back and makes it difficult to have good posture. Avoid activities or situations that make you feel anxious or stressed. Stress and anxiety increase muscle tension and can make back pain worse. Learn ways to manage anxiety and stress, such as through exercise. General instructions Sleep on a firm mattress in a comfortable position. Try lying on your side with your knees slightlybent. If you lie on your back, put a pillow under your knees. Keep your head and neck in a straight line with your spine (neutral position) when using electronicequipment like smartphones or pads. To do this: ?Raise your smartphone or pad to look at it instead of bending your head or neck to look down. ?Put the smartphone or pad at the level of your face while looking at the screen. Follow your treatment plan as told by your health care provider. This may include: ?Cognitive or behavioral therapy. ?Acupuncture or massage therapy. ?Meditation or yoga. Contact a health care provider if: You have pain that is not relieved with rest or medicine. You have increasing pain going down into your legs or buttocks. Your pain does not improve after 2 weeks. You have pain at night. You lose weight without trying. You have a fever or chills. You develop nausea or vomiting. You develop abdominal pain. Get help right away if: You develop new bowel or bladder control problems. You have unusual weakness or numbness in your arms or legs. You feel faint. These symptoms may represent a serious problem that is an emergency. Do not wait to see if the symptoms will go away. Get medical help right away. Call your local emergency services (911 in the [place] Do not drive yourself to the hospital. Summary Acute back pain is sudden and usually short-lived. Use proper lifting techniques. When you bend and lift, use positions that put less stress on your back. Take ccff-mnj-jwgzzit and prescription medicines only as told by your health care provider, and apply heat or ice as told. This information is not intended to replace advice given to you by your health care provider. Make sure you discuss any questions you have with your health care provider. Document Revised: 06/02/2021 Document Reviewed: 06/02/2021 Elsevier Patient Education 2022 [employer] Follow Up Care 09/09/2023 18:55:50 With:Cheyanne Rosas Address: [address] [place] [address] [place] [id number] [facility] (1) When:09/12/2023 Comments:Call Dr for diagnosis based follow up [facility]06-17-2024 Evaluation + Plan noteExtracted from: Title:ED Note Author:Landon Tidwell PA-C te:09/09/23 Chronic back pain (M54.9: Do rsalgia, unspecified) Other chronic pain (G89.29: Other chronic pain) Orders: ketorolac, 30 mg = 1 mL, Injection, IntraMuscular, Once, Stop date 09/09/23 19:26:00 EDT, STAT, Start date 09/09/23 19:26:00 EDT, 09/09/23 19:26:00 EDT morphine, 2 mg = 0.5 mL, Injection, IntraMuscular, Once, Stop date 09/09/23 19:25:00 EDT, STAT, Start date 09/09/23 19:25:00 EDT, 09/09/23 19:25:00 EDT orphenadrine, 60 mg = 2 mL, Injection, IntraMuscular, Once, Stop date 09/09/23 23:02:00 EDT, STAT, Start date 09/09/23 23:02:00 EDT, 09/09/23 23:02:00 EDT triamcinolone, 40 mg = 1 mL, Susp-Inj, IntraMuscular, Once, Stop date 09/09/23 23:02:00 EDT, STAT, Start date 09/09/23 23:02:00 EDT, 09/09/23 23:02:00 EDT MRI Spine Lumbar w/o Contrast Future Appointments Appointment Date:09/11/2023 09:00:00 AM Scheduled Provider:Ashia Simental Location:[facility] Appointment Type: Intake Appointment Date:11/13/2023 08:00:00 AM Scheduled Provider:Domenic Sher DO Location:[facility] Appointment Type:Pain Management - Follow Up (FT) Future Scheduled Tests Laboratory* TSH With T4fr Reflex 07/17/23 * Urinalysis with Micro 07/17/23 * Lipid Panel 07/17/23 * Drug Screen Urine 07/17/23 Radiology* MA Mamm Screen w/CAD if perf and 3D Kenan 07/17/23 [facility]06-14-2024 Evaluation + Plan noteExtracted from: Title:ED Note Author:Matthew MILES, Zhane Celis te:09/06/23 Headache, migraine (G43.909: Migraine, unspecified, not intractable, without status migrainosus) Orders: diphenhydrAMINE, 25 mg = 0.5 mL, Injection, IntraMuscular, Once, Stop date 09/06/23 21:23:00 EDT, STAT, Start date 09/06/23 21:23:00 EDT, 09/06/23 21:23:00 EDT ketorolac, 30 mg = 1 mL, Injection, IntraMuscular, Once, Stop date 09/06/23 21:23:00 EDT, STAT, Start date 09/06/23 21:23:00 EDT, 09/06/23 21:23:00 EDT metoclopramide, 10 mg = 2 mL, Injection, IntraMuscular, Once, Stop date 09/06/23 21:23:00 EDT, STAT, Start date 09/06/23 21:23:00 EDT, 09/06/23 21:23:00 EDT Future Appointments Appointment Date:09/11/2023 09:00:00 AM Scheduled Provider:Ashia Simental Location:[facility] Appointment Type: Intake Appointment Date:11/13/2023 08:00:00 AM Scheduled Provider:Domenic Sher DO Location:[facility] Appointment Type:Pain Management - Follow Up (FT) Future Scheduled Tests Laboratory* TSH With T4fr Reflex 07/17/23 * Urinalysis with Micro 07/17/23 * Lipid Panel 07/17/23 * Drug Screen Urine 07/17/23 Radiology* MA Mamm Screen w/CAD if perf and 3D Kenan 07/17/23 [facility]06-10-2024 Hospital Discharge instructions Patient Education 09/02/2023 19:03:31 Chronic Back Pain Chronic Back Pain When back pain lasts longer than 3 months, it is called chronic back pain. The cause of your back pain may not be known. Some common causes include: Wear and tear (degenerative disease) of the bones, ligaments, or disks in your back. Inflammation and stiffness in your back (arthritis). People who have chronic back pain often go through certain periods in which the pain is more intense (flare-ups). Many people can learn to manage the pain with home care. Follow these instructions at home: Pay attention to any changes in your symptoms. Take these actions to help with your pain: Managing pain and stiffness If directed, apply ice to the painful area. Your health care provider may recommend applying ice during the first 24 48 hours after a flare-up begins. To do this: ?Put ice in a plastic bag. ?Place a towel between your skin and the bag. ?Leave the ice on for 20 minutes, 2 3 times per day. If directed, apply heat to the affected area as often as told by your health care provider. Use theheat source that your health care provider recommends, such as a moist heat pack or a heating pad. ?Place a towel between your skin and the heat source. ?Leave the heat on for 20 30 minutes. ?Remove the heat if your skin turns bright red. This is especially important if you are unable to feel pain, heat, or cold. You may have a greater risk of getting burned. Try soaking in a warm tub. Activity Avoid bending and other activities that make the problem worse. Maintain a proper position when standing or sitting: ?When standing, keep your upper back and neck straight, with your shoulders pulled back. Avoid slouching. ?When sitting, keep your back straight and relax your shoulders. Do not round your shoulders or pull them backward. Do not sit or intelligence consultant one place for long periods of time. Take brief periods of rest throughout the day. This will reduce your pain. Resting in a lying or standing position is usually better than sitting to rest. When you are resting for longer periods, mix in some mild activity or stretching between periods ofrest. This will help to prevent stiffness and pain. Get regular exercise. Ask your health care provider what activities are safe for you. Do not lift anything that is heavier than 10 lb (4.5 kg), or the limit that you are told, until your health care provider says that it is safe. Always use proper lifting technique, which includes: ?Bending your knees. ?Keeping the load close to your body. ?Avoiding twisting. Sleep on a firm mattress in a comfortable position. Try lying on your side with your knees slightlybent. If you lie on your back, put a pillow under your knees. Medicines Treatment may include medicines for pain and inflammation taken by mouth or applied to the skin, prescription pain medicine, or muscle relaxants. Take ezsd-qij-imdpiwi and prescription medicines onlyas told by your health care provider. Ask your health care provider if the medicine prescribed to you: ?Requires you to avoid driving or using machinery. ?Can cause constipation. You may need to take these actions to prevent or treat constipation: ?Drink enough fluid to keep your urine pale yellow. ?Take inta-rnp-cznvjhk or prescription medicines. ?Eat foods that are high in fiber, such as beans, whole grains, and fresh fruits and vegetables. ?Limit foods that are high in fat and processed sugars, such as fried or sweet foods. General instructions Do not use any products that contain nicotine or tobacco, such as cigarettes, e- cigarettes, and chewing tobacco. If you need help quitting, ask your health care provider. Keep all follow-up visits as told by your health care provider. This is important. Contact a health care provider if: You have pain that is not relieved with rest or medicine. Your pain gets worse, or you have new pain. You have a high fever. You have rapid weight loss. You have trouble doing your normal activities. Get help right away if: You have weakness or numbness in one or both of your legs or feet. You have trouble controlling your bladder or your bowels. You have severe back pain and have any of the following: ?Nausea or vomiting. ?Pain in your abdomen. ?Shortness of breath or you faint. Summary Chronic back pain is back pain that lasts longer than 3 months. When a flare-up begins, apply ice to the painful area for the first 24 48 hours. Apply a moist heat pad or use a heating pad on the painful area as directed by your health care provider. When you are resting for longer periods, mix in some mild activity or stretching between periods ofrest. This will help to prevent stiffness and pain. This information is not intended to replace advice given to you by your health care provider. Make sure you discuss any questions you have with your health care provider. Document Revised: 04/20/2020 Document Reviewed: 04/20/2020 [employer] Patient Education 2022 [email or web address]. Follow Up Care 09/02/2023 17:51:01 With:Domenic Sher Address: [address] [place], [place] [address] [address] Business (1) When:09/05/2023 18:28:26 With:[employer] Address: [address] [place] [address]- Business (1) When:09/05/2023 18:28:19 With:Cheyanne Rosas Address: [address], [address] [facility] [address] [place] [address]- Business (1) When:Within 3 Day(s) [facility]06-10-2024 Evaluation + Plan noteExtracted from: Title:ED Note Author:Jorge Mcintosh DO Date:08/23 Back pain (M54.9: Dorsalgia, unspecified) Orders: diazepam, 5 mg = 1 mL, Injection, IntraMuscular, Once, Stop date 09/02/23 18:30:00 EDT, STAT, Start date 09/02/23 18:30:00 EDT, 09/02/23 18:30:00 EDT diflunisal, 500 mg = 1 tab(s), Oral, q12hr, # 20 tab(s), Refills(s) 0, Pharmacy: [facility]/pharmacy #[id number], 160, cm, 09/02/23 18:11:00 EDT, Height/Length Dosing, 115.5, kg, 09/02/23 18:11:00 EDT, Weight Dosing ketorolac, 60 mg = 2 mL, Injection, IntraMuscular, Once, Stop date 09/02/23 18:30:00 EDT, STAT, Start date 09/02/23 18:30:00 EDT, 09/02/23 18:30:00 EDT lidocaine topical, 1 patch(es), Topical, Daily, 7 patch(es), Refill(s) 0, apply 12 hours on and 12 hours off daily, [id number], 160, cm, 09/02/23 18:11:00 EDT, Height/Length Dosing, 115.5, kg, 09/02/23 18:11:00 EDT, Weight Dosing methocarbamol, 750 mg = 1 tab(s), Oral, TID, X 7 day(s), # 21 tab(s), Refills(s) 0, Pharmacy: [facility]/pharmacy #[id number], 160, cm, 09/02/23 18:11:00 EDT, Height/Length Dosing, 115.5, kg, 09/02/23 18:11:00 EDT, Weight Dosing Future Appointments Appointment Date:09/11/2023 09:00:00 AM Scheduled Provider:Ashia Simental Location:[facility] Appointment Type: Intake Appointment Date:11/13/2023 08:00:00 AM Scheduled Provider:Domenic Sher DO Location:.[facility] Appointment Type:Pain Management - Follow Up (FT) Future Scheduled Tests Laboratory* TSH With T4fr Reflex 07/17/23 * Urinalysis with Micro 07/17/23 * Lipid Panel 07/17/23 * Drug Screen Urine 07/17/23 Radiology* MA Mamm Screen w/CAD if perf and 3D Kenan 07/17/23 [facility]06-07-2024 Hospital Discharge instructions Patient Education 08/30/2023 19:01:28 Chronic Back Pain, [place] Chronic Back Pain When back pain lasts longer than 3 months, it is called chronic back pain. Pain may get worse at certain times (flare-ups). There are things you can do at home to manage your pain. Follow these instructions at home: Pay attention to any changes in your symptoms. Take these actions to help with your pain: Managing pain and stiffness If told, put ice on the painful area. Your doctor may tell you to use ice for 24 48 hours after theflare-up starts. To do this: ?Put ice in a plastic bag. ?Place a towel between your skin and the bag. ?Leave the ice on for 20 minutes, 2 3 times a day. If told, put heat on the painful area. Do this as often as told by your doctor. Use the heat sourcethat your doctor recommends, such as a moist heat pack or a heating pad. ?Place a towel between your skin and the heat source. ?Leave the heat on for 20 30 minutes. ?Take off the heat if your skin turns bright red. This is especially important if you are unable tofeel pain, heat, or cold. You may have a greater risk of getting burned. Soak in a warm bath. This can help relieve pain. Activity Avoid bending and other activities that make pain worse. When standing: ?Keep your upper back and neck straight. ?Keep your shoulders pulled back. ?Avoid slouching. When sitting: ?Keep your back straight. ?Relax your shoulders. Do not round your shoulders or pull them backward. Do not sit or intelligence consultant one place for long periods of time. Take short rest breaks during the day. Lying down or standing is usually better than sitting. Resting can help relieve pain. When sitting or lying down for a long time, do some mild activity or stretching. This will help to prevent stiffness and pain. Get regular exercise. Ask your doctor what activities are safe for you. Do not lift anything that is heavier than 10 lb (4.5 kg) or the limit that you are told, until yourdoctor says that it is safe. To prevent injury when you lift things: ?Bend your knees. ?Keep the weight close to your body. ?Avoid twisting. Sleep on a firm mattress. Try lying on your side with your knees slightly bent. If you lie on your back, put a pillow under your knees. Medicines Treatment may include medicines for pain and swelling taken by mouth or put on the skin, prescription pain medicine, or muscle relaxants. Take fvio-gjs-njycqra and prescription medicines only as told by your doctor. Ask your doctor if the medicine prescribed to you: ?Requires you to avoid driving or using machinery. ?Can cause trouble pooping (constipation). You may need to take these actions to prevent or treat trouble pooping: ?Drink enough fluid to keep your pee (urine) pale yellow. ?Take neqo-xfm-dassdap or prescription medicines. ?Eat foods that are high in fiber. These include beans, whole grains, and fresh fruits and vegetables. ?Limit foods that are high in fat and sugars. These include fried or sweet foods. General instructions Do not use any products that contain nicotine or tobacco, such as cigarettes, e- cigarettes, and chewing tobacco. If you need help quitting, ask your doctor. Keep all follow-up visits as told by your doctor. This is important. Contact a doctor if: Your pain does not get better with rest or medicine. Your pain gets worse, or you have new pain. You have a high fever. You lose weight very quickly. You have trouble doing your normal activities. Get help right away if: One or both of your legs or feet feel weak. One or both of your legs or feet lose feeling (have numbness). You have trouble controlling when you poop (have a bowel movement) or pee (urinate). You have bad back pain and: ?You feel like you may vomit (nauseous), or you vomit. ?You have pain in your belly (abdomen). ?You have shortness of breath. ?You faint. Summary When back pain lasts longer than 3 months, it is called chronic back pain. Pain may get worse at certain times (flare-ups). Use ice and heat as told by your doctor. Your doctor may tell you to use ice after flare-ups. This information is not intended to replace advice given to you by your health care provider. Make sure you discuss any questions you have with your health care provider. Document Revised: 04/20/2020 Document Reviewed: 04/20/2020 [employer] Patient Education 2022 [email or web address]. Follow Up Care 08/30/2023 18:12:14 With:Ralph BEYER, Cheyanne Cantu [facility] Address: [address] [place], [place] [address]- When:09/02/2023 [facility]06-07-2024 Evaluation + Plan noteExtracted from: Title:ED Note Author:Pati MILES, April Sagastume ate:08/30/23 1. Acute exacerbation of chr onic low back pain (M54.50: Low back pain, unspecified) Ordered: methylPREDNISolone, = 1 packet(s), Oral, As Directed, as directed on package labeling, X 6 day(s), # 21 tab(s), Refills(s) 0, Pharmacy: [facility]/pharmacy #[id number], 160, cm, 08/30/23 18:16:00 EDT, Height/Length Dosing, 115.5, kg, 08/30/23 18:16:00 EDT, Weight Dosing Other chronic pain (G89.29: Other chronic pain) Orders: ketorolac, 30 mg = 1 mL, Injection, IntraMuscular, Once, Stop date 08/30/23 19:00:00 EDT, STAT, Start date 08/30/23 19:00:00 EDT, 08/30/23 19:00:00 EDT morphine, 4 mg = 1 mL, Injection, IntraMuscular, Once, Stop date 08/30/23 19:00:00 EDT, STAT, Start date 08/30/23 19:00:00 EDT, 08/30/23 19:00:00 EDT Future Appointments Appointment Date:09/11/2023 09:00:00 AM Scheduled Provider:Ashia Simental Location:[facility] Appointment Type: Intake Appointment Date:11/13/2023 08:00:00 AM Scheduled Provider:Domenic Sher DO Location[facility] Appointment Type:Pain Management - Follow Up (FT) Future Scheduled Tests Laboratory* TSH With T4fr Reflex 07/17/23 * Urinalysis with Micro 07/17/23 * Lipid Panel 07/17/23 * Drug Screen Urine 07/17/23 Radiology* MA Mamm Screen w/CAD if perf and 3D Kenan 07/17/23 [facility]06-04-2024 History of Present illness Narrative* Chirag Oviedo, ELIZABETH-VERTICA ARCHITECT - 08/27/2023 1:00 PM EDT [facility] Neurosurgery Diagnosis Jerad Dee was seen today for follow-up. Diagnoses and all orders for this visit: Chronic back pain greater than 3 months duration - oxyCODONE (Roxicodone) 5 mg immediate release tablet; Take 1 tablet (5 mg) by mouth every 6 hoursif needed for severe pain (7 - 10) for up to 3 days. Neuropathic pain - oxyCODONE (Roxicodone) 5 mg immediate release tablet; Take 1 tablet (5 mg) by mouth every 6 hoursif needed for severe pain (7 - 10) for up to 3 days. Patient Discussion/Summary 1) You expressed that you are pleased with the results of the trial, and would like to proceed withimplantation of the device. 2) We discussed proceeding with a percutaneous method, though you are aware that if there is difficulty in placing the leads or migration of the leads, a paddle device may be necessary down the line. 3) We will proceed with preoperative lab work and scheduling surgery for the next available time. Provider Impressions 48 y.o. female with chronic b/l LBP, as well as neuropathic LE pain, R>L, primarily in the anterior thighs and occas down to the feet; refractory to medical management. Patient was determined to be a good candidate for spinal cord stimulation trial, s/p successful perc thoracic SCS trial w/ [place] on 08/21/[address] Adams, with 75% relief of low back and LE pain with stim, and improved ability to sit, walk, and sleep. As such, patient is an excellent candidate for permanent perc thoracic SCS placement. Our office will schedule surgery for the next available date. 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 History of Present Illness Chief Complaint: Chief Complaint Patient presents with Follow-up Spinal cord stimulator HPI: Jerad Tracy is a 48 y.o. 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 As such, patient was determined to be a good candidate for spinal cord stimulation, and is now s/p perc thoracic SCS trial w/ [place] on 08/21/[address] Adams. Patient presents today for her postop visit and lead pull. Patient reports excellent relief with stim, with 75% relief of low back and LE pain during trial. Patient reports improved ability to sit, walk, and sleep during trial, and is extremely pleased with results. Patient would like to proceed with placement as soon as possible. Patient is requesting a short refill of opioid pain relief, for return to work and while awaiting permanent placement. Will provide with one additional short- term refill, and patient will follow up with her PCP or pain management for further management. Procedure: Perc thoracic lead was pulled in a clean fashion and was intact upon removal. Patient tolerated the procedure. ROS: As noted in HPI. Previous History Past Medical History: Diagnosis Date Anxiety Arthritis Bipolar disorder (Multi) Chronic back pain Chronic pain disorder Depression taking prozac HCV (hepatitis C virus) 2013 (in setting of prison opioid use), treated with medication, seen by Dr. Yuen on 04/01/23 Herniated lumbar intervertebral disc Liver disease stage 3 Neuropathic pain R>L Obesity Vision loss Past Surgical History: Procedure Laterality Date ADENOIDECTOMY BUNIONECTOMY CHOLECYSTECTOMY COLONOSCOPY DENTAL SURGERY Bilateral all teeth removed, dentures HYSTERECTOMY MYRINGOTOMY W/ TUBES Bilateral TONSILLECTOMY Social History Tobacco Use Smoking status: Every Day Current packs/day: 0.50 Types: Cigarettes Smokeless tobacco: Never Vaping Use Vaping status: Never Used Substance Use Topics Alcohol use: Yes Comment: Socially Drug use: Not Currently Comment: last use 2016- heroin Family History Problem Relation Name Age of Onset Lung disease Mother COPD Mother Lung disease Father Lung cancer Father Heart disease Father Allergies Allergen Reactions Hydrocodone Hives and Unknown Hydrocodone-Acetaminophen Hives Penicillins Hives and Unknown Nabumetone Nausea/vomiting and Rash Current Outpatient Medications Medication Instructions cyclobenzaprine (FLEXERIL) 10 mg, oral, 3 times daily PRN FLUoxetine (PROZAC) 60 mg, oral, Daily ibuprofen 800 mg, oral, Every 8 hours PRN omeprazole (PRILOSEC) 20 mg, oral, 2 times daily before meals, Do not crush or chew. oxyCODONE (ROXICODONE) 5 mg, oral, Every 6 hours PRN sennosides-docusate sodium (Judy-Colace) 8.6-50 mg tablet 1 tablet, oral, Daily Vitals BP 132/88 Pulse 88 Resp 18 Ht 1.6 m (5' 3 ) Wt 113 kg (250 lb) BMI 44.29 kg/m Physical Exam Well appearing, in no acute distress. S/p removal of perc thoracic lead, c/d/I. documented in this [facility] Work Phone: [phone] 608-954805-29-2024 Hospital Note* Hospital Course - Tiff Story MD - 08/21/2023 6:11 AM EDT 48yF h/o chronic bilateral low back pain, neuropathic BLE pain (R>L), LL radiculopathy, HCV, GERD, depression, bipolar disorder, presenting for spinal cord stimulator trial. 08/20 s/p thoracic spinal stimulator lead placement for trial. On the day of discharge, patient was clinically stable from a neurosurgical perspective. [facility] Work Phone: [phone] Miscellaneous Notes* Hospital Course - Tiff Story MD - 08/21/2023 6:11 AM EDT 48yF h/o chronic bilateral low back pain, neuropathic BLE pain (R>L), LL radiculopathy, HCV, GERD, depression, bipolar disorder, presenting for spinal cord stimulator trial. 08/20 s/p thoracic spinal stimulator lead placement for trial. On the day of discharge, patient was clinically stable from a neurosurgical perspective. [facility] [phone] NoteEducation Materials Mental and Behavioral Health Chronic Pain, Adult Chronic pain is a type of pain that lasts or keeps coming back for at least 3?6 months. You may have headaches, pain in the abdomen, or pain in other areas of the body. Chronic pain may be related gonzalez illness, injury, or a health condition. Sometimes, the cause of chronic pain is not known. Chronic pain can make it hard for you to do daily activities. If it is not treated, chronic pain can lead to anxiety and depression. Treatment depends on the cause of your pain and how severe it is. You may need to work with a pain specialist to come up with a treatment plan. Many people benefit from two or more types of treatment to control their pain. Follow these instructions at home: Treatment plan Follow your treatment plan as told by your health care provider. This may include: ? Gentle, regular exercise. ? Eating a healthy diet that includes foods such as vegetables, fruits, fish, and lean meats. ? Mental health therapy (cognitive or behavioral therapy) that changes the way you think or act in response to the pain. This may help improve how you feel. ? Doing physical therapy exercises to improve movement and strength. ? Meditation, yoga, acupuncture, or massage therapy. ? Using the oils from plants in your environment or on your skin (aromatherapy). Other treatments may include: ? Pviw-izm-kqcjajo or prescription medicines. ? Color, light, or sound therapy. ? Local electrical stimulation. The electrical pulses help to relieve pain by temporarily stopping the nerve impulses that cause you to feel pain. ? Injections. These deliver numbing or pain-relieving medicines into the spine or the area of pain. Medicines ? Take xwqs-pzs-eyxubbd and prescription medicines only as told by your health care provider. ? Ask your health care provider if the medicine prescribed to you: ? Requires you to avoid driving or using machinery. ? Can cause constipation. You may need to take these actions to prevent or treat constipation: ? Drink enough fluid to keep your urine pale yellow. ? Take ktnx-uwi-hyfzflf or prescription medicines. ? Eat foods that are high in fiber, such as beans, whole grains, and fresh fruits and vegetables. ? Limit foods that are high in fat and processed sugars, such as fried or sweet foods. Lifestyle ? Ask your health care provider whether you should keep a pain diary. Your health care provider will tell you what information to write in the diary. This may include: ? When you have pain. ? What the pain feels like. ? How medicines and other behaviors or treatments help to reduce the pain. ? Consider talking with a mental health care provider about how to help manage chronic pain. ? Consider joining a chronic pain support group. ? Try to control or lower your stress levels. Talk with your health care provider about ways to do this. General instructions ? Learn as much as you can about how to manage your chronic pain. Ask your health care provider if an intensive pain rehabilitation program or a chronic pain specialist would be helpful. ? Check your pain level as told by your health care provider. Ask your health care provider if you should use a pain scale. Contact a health care provider if: ? Your pain is not controlled with treatment. ? You have new pain. ? You have side effects from pain medicine. ? You feel weak or you have trouble doing your normal activities. ? You have trouble sleeping or you develop confusion. ? You lose feeling or have numbness in your body. ? You lose control of your bowels or bladder. Get help right away if: ? Your pain suddenly gets much worse. ? You develop chest pain. ? You have trouble breathing or shortness of breath. ? You faint, or another person sees you faint. These symptoms may be an emergency. Get help right away. Call 911. ? Do not wait to see if the symptoms will go away. ? Do not drive yourself to the hospital. Also, get help right away if: ? You have thoughts about hurting yourself or others. Take one of these steps if you feel like you may hurt yourself or others, or have thoughts about taking your own life: ? Go to your nearest emergency room. ? Call 911. ? Call the National Suicide Prevention Lifeline at or 325. This is open 24 hours a day. ? Text the Crisis Text Line at 771036. This information is not intended to replace advice given to you by your health care provider. Make sure you discuss any questions you have with your health care provider. Document Revised: 10/31/2022 Document Reviewed: 10/03/2022 [employer] Patient Education ? 2022 [employer] Orthopedics Lumbosacral Strain A lumbosacral strain is an injury that causes pain in the lower back (lumbosacral spine). This injury usually happens from overstretching the muscles or ligaments along the spine. Ligaments are cord-l (more content not included)...[id number] Evaluation + Plan noteExtracted from: Title:ED Note Author:Annette Watkins, Balbina Celis te:08/16/23 1. Closed head injury (S09.9 0XA: Unspecified injury of head, initial encounter) 2. Muscle strain (T14.8XXA: Other injury of unspecified body region, initial encounter) Orders: acetaminophen, 650 mg = 2 tab(s), Tab, Oral, Once, Stop date 08/16/23 1:14:00 EDT, STAT, Start date 08/16/23 1:14:00 EDT, 08/16/23 1:14:00 EDT cyclobenzaprine, 10 mg = 1 tab(s), Oral, TID, PRN for spasm, # 20 tab(s), Refills(s) 0, Pharmacy: [facility]/pharmacy #[id number], 160, cm, 08/15/23 22:27:00 EDT, Height/Length Dosing, 115.5, kg, 08/15/23 22:27:00 EDT, Weight Dosing CT Head or Brain w/o Contrast CT Spine Cervical w/o Contrast XR Spine Lumbosacral 2 or 3 Views XR Spine Thoracic 3 Views Future Appointments Appointment Date:09/11/2023 09:00:00 AM Scheduled Provider:Ashia Simental Location:[facility] Appointment Type: Intake Appointment Date:11/13/2023 08:00:00 AM Scheduled Provider:Domenic Sher DO Location:[facility] Appointment Type:Pain Management - Follow Up (FT) Future Scheduled Tests Laboratory* TSH With T4fr Reflex 07/17/23 * Urinalysis with Micro 07/17/23 * Lipid Panel 07/17/23 * Drug Screen Urine 07/17/23 Radiology* MA Mamm Screen w/CAD if perf and 3D Kenan 07/17/23 [facility]05-24-2024 Hospital Discharge instructions Patient Education 08/16/2023 01:25:49 Muscle Strain Muscle Strain A muscle strain is an injury that occurs when a muscle is stretched beyond its normal length. Usually, a small number of muscle fibers are torn when this happens. There are three types of muscle strains. First-degree strains have the least amount of muscle fiber tearing and the least amount of pain. Second-degree and third-degree strains have more tearing and pain. Usually, recovery from muscle strain takes 1 2 weeks. Complete healing normally takes 5 6 weeks. What are the causes? This condition is caused when a sudden, violent force is placed on a muscle and stretches it too far. This may occur with a fall, while lifting, or during sports. What increases the risk? This condition is more likely to develop in athletes and people who are physically active. What are the signs or symptoms? Symptoms of this condition include: Pain. Tenderness. Bruising. Swelling. Trouble using the muscle. How is this diagnosed? This condition is diagnosed based on a physical exam and your medical history. Tests may also be done, including an X-ray, ultrasound, or MRI. How is this treated? This condition is initially treated with DIGGS therapy. This therapy involves: Protecting the muscle from being injured again. Resting the injured muscle. Icing the injured muscle. Applying pressure (compression) to the injured muscle. This may be done with a splint or elastic bandage. Raising (elevating) the injured muscle. Your health care provider may also recommend medicine for pain. Follow these instructions at home: If you have a removable splint: Wear the splint as told by your health care provider. Remove it only as told by your health care provider. Check the skin around the splint every day. Tell your health care provider about any concerns. Loosen the splint if your fingers or toes tingle, become numb, or turn cold and blue. Keep the splint clean. If the splint is not waterproof: ?Do not let it get wet. ?Cover it with a watertight covering when you take a bath or a shower. Managing pain, stiffness, and swelling If directed, put ice on the injured area. To do this: ?If you have a removable splint, remove it as told by your health care provider. ?Put ice in a plastic bag. ?Place a towel between your skin and the bag. ?Leave the ice on for 20 minutes, 2 3 times a day. ?Remove the ice if your skin turns bright red. This is very important. If you cannot feel pain, heat, or cold, you have a greater risk of damage to the area. Move your fingers or toes often to reduce stiffness and swelling. Raise (elevate) the injured area above the level of your heart while you are sitting or lying down. Wear an elastic bandage as told by your health care provider. Make sure that it is not too tight. General instructions Take auch-ein-voyoaxx and prescription medicines only as told by your health care provider. Treatment may include muscle relaxants or medicines for pain and inflammation that are taken by mouth or applied to the skin. Restrict your activity and rest the injured muscle as told by your health care provider. Gentle movements may be allowed. If physical therapy was prescribed, do exercises as told by your health care provider. Do not put pressure on any part of the splint until it is fully hardened. This may take several hours. Do not use any products that contain nicotine or tobacco. These products include cigarettes, chewing tobacco, and vaping devices, such as e-cigarettes. If you need help quitting, ask your health careprovider. Ask your health care provider when it is safe to drive if you have a splint. Keep all follow-up visits. This is important. How is this prevented? Warm up before exercising. This helps to prevent future muscle strains. Contact a health care provider if: You have more pain or swelling in the injured area. Get help right away if: You have numbness or tingling in the injured area. You lose a lot of strength in the injured area. Summary A muscle strain is an injury that occurs when a muscle is stretched beyond its normal length. This condition is caused when a sudden, violent force is placed on a muscle and stretches it too far. This condition is initially treated with DIGGS therapy, which involves protecting, resting, icing, compressing, and elevating. Gentle movements may be allowed. If physical therapy was prescribed, do exercises as told by your health care provider. This information is not intended to replace advice given to you by your health care provider. Make sure you discuss any questions you have with your health care provider. Document Revised: 05/29/2021 Document Reviewed: 05/29/2021 [employer] Patient Education 2022 [email or web address]. 08/16/2023 01:25:49 Head Injury, Adult Head Injury, Adult There are many types of head injuries. Head injuries can be as minor as a small bump, or they can be a serious medical issue. More severe head injuries include: A jarring injury to the brain (concussion). A bruise (contusion) of the brain. This means there is bleeding in the brain that can cause swelling. A cracked skull (skull fracture). Bleeding in the brain that collects, clots, and forms a bump (hematoma). After a head injury, most problems occur within the first 24 hours, but side effects may occur up to 7 10 days after the injury. It is important to watch your condition for any changes. You may need to be observed in the emergency department or urgent care, or you may be admitted to the hospital. What are the causes? There are many possible causes of a head injury. Serious head injuries may be caused by car accidents, bicycle or motorcycle accidents, sports injuries, falls, or being struck by an object. What are the symptoms? Symptoms of a head injury include a contusion, bump, or bleeding at the site of the injury. Other physical symptoms may include: Headache. Nausea or vomiting. Dizziness. Blurred or double vision. Being uncomfortable around bright lights or loud noises. Seizures. Feeling tired. Trouble being awakened. Loss of consciousness. Mental or emotional symptoms may include: Irritability. Confusion and memory problems. Poor attention and concentration. Changes in eating or sleeping habits. Anxiety or depression. How is this diagnosed? This condition can usually be diagnosed based on your symptoms, a description of the injury, and a physical exam. You may also have imaging tests done, such as a CT scan or an MRI. How is this treated? Treatment for this condition depends on the severity and type of injury you have. The main goal of treatment is to prevent complications and allow the brain time to heal. Mild head injury If you have a mild head injury, you may be sent home, and treatment may include: Observation. A responsible adult should stay with you for 24 hours after your injury and check on you often. Physical rest. Brain rest. Pain medicines. Severe head injury If you have a severe head injury, treatment may include: Close observation. This includes hospitalization with the following care: ?Frequent physical exams. ?Frequent checks of how your brain and nervous system are working (neurological status). ?Checking your blood pressure and oxygen levels. Medicines to relieve pain, prevent seizures, and decrease brain swelling. Airway protection and breathing support. This may include using a ventilator. Treatments that monitor and manage swelling inside the brain. Brain surgery. This may be needed to: ?Remove a collection of blood or blood clots. ?Stop the bleeding. ?Remove a part of the skull to allow room for the brain to swell. Follow these instructions at home: Activity Rest and avoid activities that are physically hard or tiring. Make sure you get enough sleep. Let your brain rest by limiting activities that require a lot of thought or attention, such as: ?Watching TV. ?Playing memory games and puzzles. ?Job-related work or homework. ?Working on the computer, using social media, and texting. Avoid activities that could cause another head injury, such as playing sports, until your health care provider approves. Having another head injury, especially before the first one has healed, can bedangerous. Ask your health care provider when it is safe for you to return to your regular activities, including work or school. Ask your health care provider for a pmxm-nc-lihq plan for gradually returning to activities. Ask your health care provider when you can drive, ride a bicycle, or use heavy machinery. Your ability to react may be slower after a brain injury. Do not do these activities if you are dizzy. Lifestyle Do not drink alcohol until your health care provider approves. Do not use drugs. Alcohol and certain drugs may slow your recovery and can put you at risk of further injury. If it is harder than usual to remember things, write them down. If you are easily distracted, try to do one thing at a time. Talk with family members or close friends when making important decisions. Tell your friends, family, a trusted colleague, and barnworker groom about your injury, symptoms, and restrictions. Have them watch for any new or worsening problems. General instructions Take unxc-lcb-ylfibgz and prescription medicines only as told by your health care provider. Have someone stay with you for 24 hours after your head injury. This person should watch you for any changes in your symptoms and be ready to seek medical help. Keep all follow-up visits as told by your health care provider. This is important. How is this prevented? Work on improving your balance and strength to avoid falls. Wear a seat belt when you are in a moving vehicle. Wear a helmet when riding a bicycle, skiing, or doing any other sport or activity that has a risk of injury. If you drink alcohol: ?Limit how much you use to: ?0 1 drink a day for non women. ?0 2 drinks a day for men. ?Be aware of how much alcohol is in your drink. In the [place] one drink equals one 12 oz bottle of beer (355 mL), one 5 oz glass of wine (148 mL), or one 1 oz glass of hard liquor (44 mL). Take safety measures in your home, such as: ?Removing clutter and tripping hazards from floors and stairways. ?Using grab bars in bathrooms and handrails by stairs. ?Placing non-slip mats on floors and in bathtubs. ?Improving lighting in dim areas. Where to find more information Centers for Disease Control and Prevention: www.cdc.gov Get help right away if: You have: ?A severe headache that is not helped by medicine. ?Trouble walking or weakness in your arms and legs. ?Clear or bloody fluid coming from your nose or ears. ?Changes in your vision. ?A seizure. ?Increased confusion or irritability. Your symptoms get worse. You are sleepier than normal and have trouble staying awake. You lose your balance. Your pupils change size. Your speech is slurred. Your dizziness gets worse. You vomit. These symptoms may represent a serious problem that is an emergency. Do not wait to see if the symptoms will go away. Get medical help right away. Call your local emergency services (911 in the [place] Do not drive yourself to the hospital. Summary Head injuries can be minor, or they can be a serious medical issue requiring immediate attention. Treatment for this condition depends on the severity and type of injury you have. Have someone stay with you for 24 hours after your injury and check on you often. Ask your health care provider when it is safe for you to return to your regular activities, including work or school. Head injury prevention includes wearing a seat belt in a motor vehicle, using a helmet on a bicycle, limiting alcohol use, and taking safety measures in your home. This information is not intended to replace advice given to you by your health care provider. Make sure you discuss any questions you have with your health care provider. Document Revised: 01/22/2020 Document Reviewed: 01/22/2020 [employer] Patient Education 2022 [email or web address]. Follow Up Care 08/15/2023 22:16:33 With:Occupational Health: [facility] [phone] Address:Unknown When:08/19/2023 Comments:Return to the emergency room if your headache gets worse, vomiting, your pain gets worse or any newsymptoms. [facility]05-22-2024 Evaluation + Plan noteExtracted from: Title:chronic pain Author:Domenic Sher DO Date:08/14/23 Patient is presenting with h istory of lumbar stenosis with neurogenic claudication and bilateral lumbar radiculopathy. She rates her pain as a 8/10 when it is acutely exacerbated and it stays in the back as well as travels down her legs. This pain is intensified by any standing or walking and makes it difficult for her to complete her job. She has had this pain for quite some time we did review a CT scan of her lumbar spine showed at least moderate central canal stenosis at L4/5. She is multilevel degenerative changes and foraminal stenosis throughout. She is planning undergo a spinal cord stimulator trial on . We discussed that this is a typically effective therapy for her conditions and we should evaluate her response to this before considering significant medication changes or other interventions. Patient was agreeable to this plan. CESAR Score: 52% PHQ-2: 0 Patient denies any symptoms of progressively worsening upper/lower extremity weakness, progressively worsening gait abnormality, new onset bowel/bladder incontinence/ urinary retention, or saddle anesthesia. No new or worsening symptoms of fever, chills, night sweats. 14 Point Review of systems negative unless otherwise noted. General: No acute distress. Patient appears well-nourished. HEENT: Head is normocephalic and external ears are normal in appearance. Cardiovascular: No signs of poor perfusion and no peripheral edema Pulmonary: Nonlabored breathing, symmetric chest movement. GI: Abdomen nondistended Integumentary: No lesions Neurologic: Alert, oriented x3. 5/5 strength grossly in the bilateral upper extremities. Sensation intact to light touch in the bilateral upper extremities. 5/5 strength grossly in the bilateral lower extremities. Sensation intact to light touch in the bilateral lower extremities. MSK/Special Testing: Negative Jeyson sign bilaterally, seated straight leg raise test did reproduce radicular symptoms bilaterally. History, physical examination, and personal review of pertinent imaging results indicate a diagnosis of: -Lumbar stenosis with neurogenic claudication -Lumbosacral radiculopathy Plan: -We extensively reviewed her medications and things that have not worked in the past. It appears we are very limited on medications and I do not believe that opioid- based therapy would be the most appropriate treatment course at this time we discussed that a trial of a different muscle relaxant such as baclofen 5 mg 3 times daily with meals most reasonable neck step -We like to follow-up with her 3 months from now, she is undergoing a spinal cord stimulator trial on August 25/2024. We would like to see how this does for her before considering other interventions as I feel that this therapy may be very effective for her Patient was counseled on the above diagnosis and treatment, all questions were answered and patient agrees to adhere to the plan above. Risk and benefits of appropriate procedures and medications were reviewed as well with patient, who voiced understanding and agreeance. Patient was counseled on appropriate use of opioids if prescribed or renewed today and naloxone was offered to patient if opioids were prescribed or maintained at this visit. PHQ-2 scoring reviewed with patient and discussed seeking treatment for depression or mood disorder as appropriate. Patient was counseled on smoking cessation and/or continuing to abstain from nicotine/tobacco products as appropriate based on history; as smoking/nicotine can contribute to increased pain overall and decreased wound healing. Patient counseled on maintaining a healthy BMI as part of the total treatment of their pain and to reduce stress/strain on joints. Patient invited to return or call with any questions or concerns that arise. Future Appointments Appointment Date:09/11/2023 09:00:00 AM Scheduled Provider:Ashia Simental Location:[facility] Appointment Type: Intake Appointment Date:11/13/2023 08:00:00 AM Scheduled Provider:Domenic Sher DO Location:.[facility] [place] Appointment Type:Pain Management - Follow Up (FT) Future Scheduled Tests Laboratory* TSH With T4fr Reflex 07/17/23 * Urinalysis with Micro 07/17/23 * Lipid Panel 07/17/23 * Drug Screen Urine 07/17/23 Radiology* MA Mamm Screen w/CAD if perf and 3D Kenan 07/17/23 [facility]05-21-2024 Hospital Discharge instructions Patient Education 08/12/2023 22:33:51 General Headache Without Cause, Pwhg-hz-Wfyi General Headache Without Cause A headache is pain or discomfort you feel around the head or neck area. There are many causes and types of headaches. In some cases, the cause may not be found. Follow these instructions at home: Watch your condition for any changes. Let your doctor know about them. Take these steps to help with your condition: Managing pain Take rqsi-doa-wpwyunl and prescription medicines only as told by your doctor. This includes medicines for pain that are taken by mouth or put on the skin. Lie down in a dark, quiet room when you have a headache. If told, put ice on your head and neck area: ?Put ice in a plastic bag. ?Place a towel between your skin and the bag. ?Leave the ice on for 20 minutes, 2 3 times per day. ?Take off the ice if your skin turns bright red. This is very important. If you cannot feel pain, heat, or cold, you have a greater risk of damage to the area. If told, put heat on the affected area. Use the heat source that your doctor recommends, such as a moist heat pack or a heating pad. ? Place a towel between your skin and the heat source. ?Leave the heat on for 20 30 minutes. ?Take off the heat if your skin turns bright red. This is very important. If you cannot feel pain, heat, or cold, you have a greater risk of getting burned. Keep lights dim if bright lights bother you or make your headaches worse. Eating and drinking Eat meals on a regular schedule. If you drink alcohol: ?Limit how much you have to: ?0 1 drink a day for women who are not . ? 0 2 drinks a day for men. ?Know how much alcohol is in a drink. In the [place] one drink equals one 12 oz bottle of beer (355 mL), one 5 oz glass of wine (148 mL), or one 1 oz glass of hard liquor (44 mL). Stop drinking caffeine, or drink less caffeine. General instructions Keep a journal to find out if certain things bring on headaches. For example, write down: ?What you eat and drink. ?How much sleep you get. ?Any change to your diet or medicines. Get a massage or try other ways to relax. Limit stress. Sit up straight. Do not tighten (tense) your muscles. Do not smoke or use any products that contain nicotine or tobacco. If you need help quitting, ask your doctor. Exercise regularly as told by your doctor. Get enough sleep. This often means 7 9 hours of sleep each night. Keep all follow-up visits. This is important. Contact a doctor if: Medicine does not help your symptoms. You have a headache that feels different than the other headaches. You feel like you may vomit (nauseous) or you vomit. You have a fever. Get help right away if: Your headache: ?Gets very bad quickly. ?Gets worse after a lot of physical activity. You have any of these symptoms: ?You continue to vomit. ?A stiff neck. ?Trouble seeing. ?Your eye or ear hurts. ?Trouble speaking. ?Weak muscles or you lose muscle control. ?You lose your balance or have trouble walking. You feel like you will pass out (faint) or you pass out. You are mixed up (confused). You have a seizure. These symptoms may be an emergency. Get help right away. Call your local emergency services (911 int [place] Do not wait to see if the symptoms will go away. Do not drive yourself to the hospital. Summary A headache is pain or discomfort that is felt around the head or neck area. There are many causes and types of headaches. In some cases, the cause may not be found. Keep a journal to help find out what causes your headaches. Watch your condition for any changes. Let your doctor know about them. Contact a doctor if you have a headache that is different from usual, or if medicine does not help your headache. Get help right away if your headache gets very bad, you throw up, you have trouble seeing, you loseyour balance, or you have a seizure. This information is not intended to replace advice given to you by your health care provider. Make sure you discuss any questions you have with your health care provider. Document Revised: 08/09/2021 Document Reviewed: 08/09/2021 [employer] Patient Education 2022 [email or web address]. Follow Up Care 08/12/2023 20:18:09 With:Cheyanne Rosas Address: [address] [place] [address] Business (1) When:08/15/2023 Comments:You can use the medications as prescribed as needed for pain. Please follow-up with your primary care doctor in the next 2 to 3 days for further evaluation and management. Please return to the ED forany new or worsening symptoms. [facility]05-20-2024 Evaluation + Plan noteExtracted from: Title:ED Note Author:Elisa Sánchez DO Date :08/12/23 Headache (R51.9: Headache, u nspecified) Orders: APAP/butalbital/caffeine, 1 tab(s), Tab, Oral, Once, Stop date 08/12/23 21:52:00 EDT, STAT, Start date 08/12/23 21:52:00 EDT ASA/butalbital/caffeine, 1 cap(s), Oral, q6hr for pain for 3 day(s), 12 cap(s), Refill(s) 0, [id number], 160, cm, 08/12/23 20:54:00 EDT, Height/Length Dosing, 114.7, kg, 08/12/23 20:54:00 EDT, Weight Dosing diphenhydrAMINE, 25 mg = 0.5 mL, Injection, IntraMuscular, Once, Stop date 08/12/23 21:52:00 EDT, STAT, Start date 08/12/23 21:52:00 EDT, 08/12/23 21:52:00 EDT ketorolac, 30 mg = 1 mL, Injection, IntraMuscular, Once, Stop date 08/12/23 21:52:00 EDT, STAT, Start date 08/12/23 21:52:00 EDT, 08/12/23 21:52:00 EDT metoclopramide, 10 mg = 1 tab(s), Oral, q6hr, # 12 tab(s), Refills(s) 0, Pharmacy: [id number], 160, cm, 08/12/23 20:54:00 EDT, Height/Length Dosing, 114.7, kg, 08/12/23 20:54:00 EDT, Weight Dosing metoclopramide, 10 mg = 2 mL, Injection, IntraMuscular, Once, Stop date 08/12/23 21:52:00 EDT, STAT, Start date 08/12/23 21:52:00 EDT, 08/12/23 21:52:00 EDT Future Appointments Appointment Date:08/14/2023 03:15:00 PM Scheduled Provider:Domenic Sher DO Location:.[facility] [place] Appointment Type:Pain Management - Follow Up (FT) Future Scheduled Tests Laboratory* TSH With T4fr Reflex 07/17/23 * Urinalysis with Micro 07/17/23 * Lipid Panel 07/17/23 * Drug Screen Urine 07/17/23 Radiology* MA Mamm Screen w/CAD if perf and 3D Kenan 07/17/23 [facility]05-17-2024 Emergency department Note* Yarelis Finley RN - 08/09/2023 11:14 PM EDT Discharge instructions, medications and follow up discussed with patient with patient's understanding verbalized. Patient left the department in no acute distress. [id number]* Yarelis Finley RN - 08/09/2023 11:14 PM EDT Discharge instructions, medications and follow up discussed with patient with patient's understanding verbalized. Patient left the department in no acute distress. * Keke Payne MD - 08/09/2023 10:43 PM EDT [facility] Keke Payne MD Attending Physician Emergency Department Encounter Note, Attestation, and Medical Decision Making I have personally examined, evaluated, and fully participated in the care of this patient, in conjunction with the Resident Physician. I agree with the History and Physical Examination, assessment, treatment plan, medical decision making and disposition of this patient, as recorded or as will be recorded by the Resident Physician, unless specifically recorded differently in my personal documentation of this patient's emergency encounter. Furthermore, I have verified, to the best of my ability, that this patient has granted permission for visitors to be present during my history taking, physical exam and results review, including diagnosis and my impression. I was involved in the decision making of and/or medrano portions of and/or final evaluation of any procedures performed, as well as the inclusive time noted for any critical care statement. I have personally made/approved the management plan and take responsibility for the patient management. A review of systems was performed and is negative throughout except as documented by the Resident Physician or by myself below. If, for any reason, this attending note has its final electronic signature timestamp before the initial electronic signature timestamp of the Resident Physician's note, I attest that it is my usual and customary practice to confirm that the Resident Physician understands - and fully intends to implement and document - the assessment and plan that I have approved during our collaboration in this patient's emergency department care. Very pleasant 48-year-old woman presents with acute on chronic back pain, she has upcoming lumbar surgery in 2 weeks at [facility]. She just had a 3- hour car ride which has exacerbated the pain. Patient denies any trauma, fever, IV drug use, bilateral radicular symptoms, history of cancer, bowel or bladder incontinence or retention, saddle or genital anesthesia or hypoesthesia. Vitals: 08/09/23 2146 BP: 139/65 Pulse: 84 Resp: 16 Temp: 98 F (36.7 C) SpO2: 97% On musculoskeletal examination of the back, patient has no midline spinal tenderness to palpation. Patient has no step-off or deformity, no crepitus or fluctuance. Patient does have tenderness to palpation with a palpable knot with spasm to the right of midline in the lower lumbar distribution. Palpating this area does exacerbate the radicular pain described. No tachycardia. No respiratory distress. GCS 13. Stands and ambulates without assistance. No brock red flags for spinal cord infection or compression such as cauda equina, epidural abscess,no evidence of discitis osteomyelitis or other great pathology. Will treat symptomatically and refer the patient to her upcoming surgery in 2 weeks. Patient comfortable with this plan of care, follow-up instructions and usual return precautions. Clinical impression: Right-sided lower back pain with radicular pain * Juan Gustafson RN - 08/09/2023 9:42 PM EDT Patient arrives through triage for complaints of chronic back pain that is worsened by a 3.[address]. Endorses history of L 4-5 disc herniation. A/O x4 with respirations even and unlabored. documented in this encounterWood County [id number] Physician Emergency department Note* Keke Payne MD - 08/09/2023 10:43 PM EDT [facility] Keke Payne MD Attending Physician Emergency Department Encounter Note, Attestation, and Medical Decision Making I have personally examined, evaluated, and fully participated in the care of this patient, in conjunction with the Resident Physician. I agree with the History and Physical Examination, assessment, treatment plan, medical decision making and disposition of this patient, as recorded or as will be recorded by the Resident Physician, unless specifically recorded differently in my personal documentation of this patient's emergency encounter. Furthermore, I have verified, to the best of my ability, that this patient has granted permission for visitors to be present during my history taking, physical exam and results review, including diagnosis and my impression. I was involved in the decision making of and/or medrano portions of and/or final evaluation of any procedures performed, as well as the inclusive time noted for any critical care statement. I have personally made/approved the management plan and take responsibility for the patient management. A review of systems was performed and is negative throughout except as documented by the Resident Physician or by myself below. If, for any reason, this attending note has its final electronic signature timestamp before the initial electronic signature timestamp of the Resident Physician's note, I attest that it is my usual and customary practice to confirm that the Resident Physician understands - and fully intends to implement and document - the assessment and plan that I have approved during our collaboration in this patient's emergency department care. Very pleasant 48-year-old woman presents with acute on chronic back pain, she has upcoming lumbar surgery in 2 weeks at [facility]. She just had a 3- hour car ride which has exacerbated the pain. Patient denies any trauma, fever, IV drug use, bilateral radicular symptoms, history of cancer, bowel or bladder incontinence or retention, saddle or genital anesthesia or hypoesthesia. Vitals: 08/09/23 2146 BP: 139/65 Pulse: 84 Resp: 16 Temp: 98 F (36.7 C) SpO2: 97% On musculoskeletal examination of the back, patient has no midline spinal tenderness to palpation. Patient has no step-off or deformity, no crepitus or fluctuance. Patient does have tenderness to palpation with a palpable knot with spasm to the right of midline in the lower lumbar distribution. Palpating this area does exacerbate the radicular pain described. No tachycardia. No respiratory distress. GCS 13. Stands and ambulates without assistance. No brock red flags for spinal cord infection or compression such as cauda equina, epidural abscess,no evidence of discitis osteomyelitis or other great pathology. Will treat symptomatically and refer the patient to her upcoming surgery in 2 weeks. Patient comfortable with this plan of care, follow-up instructions and usual return precautions. Clinical impression: Right-sided lower back pain with radicular pain [facility] Phone: [phone] Hospital Discharge instructions* Discharge Instructions* Courtney Gibbs MD - 08/09/2023 10:39 PM EDT Dear Jerad Tracy, Thank you for allowing me and the rest of the Emergency Department staff at the [facility] Emergency Department to care for you today. You were evaluated in the Emergency Department today for back pain. During your visit today you were screened for medical and surgical emergencies requiring immediate intervention or hospitalization. But today is only one snapshot in time. Emergent medical conditionsand severe diseases can change and progress over time. Please follow up with your primary care physician as needed. If you do not have a primary doctor, you can call your insurance company or call [facility] at [phone] for assistance in finding a doctor. If you do not have insurance, you can go to the finance/registration department for more assistance. Return to the Emergency Department if you experience worsening shortness of breath, chest pain, palpitations, headache, light headedness, nausea/vomiting, or any other concerning symptoms. You should seek immediate medical help for: Worsening pain that is not helped with prescribed pain medicines and/or the recommended doses of over the counter pain medicines such as acetaminophen (Tylenol) or ibuprofen (Motrin/Advil)*. New or worsening chest pain or trouble breathing New or worsening headache, confusion, weakness, or visual changes New or worsening fever (>100.4 F) that does not improve with the recommended doses of over the counter fever treatments such as acetaminophen (Tylenol) or ibuprofen (Motrin/Advil)* for more than afew hours. Any other concerns that you feel could be life, limb, or eye-sight threatening Inability to tolerate fluid intake Continue a healthy diet and drink plenty of clear fluids. Avoid sugary and carbonated beverages. Continue regular exercise as tolerated. If you were given any prescriptions, then take the medications as prescribed. If you require assistance with paying for medications, please visit https://www.[employer]/ where you can find the best prices for prescription and qxfn-kqb-wslzzho medications. Wishing you a speedy recovery, Courtney Gibbs MD documented in this encounterWood County [id number] Emergency department Note* Juan Gustafson RN - 08/09/2023 9:42 PM EDT Patient arrives through triage for complaints of chronic back pain that is worsened by a 3.[address]. Endorses history of L 4-5 disc herniation. A/O x4 with respirations even and unlabored. [facility] [id number] Hospital Discharge instructions Patient Education 08/05/2023 21:13:19 Chronic Back Pain, Pvmy-jm-Duus Chronic Back Pain When back pain lasts longer than 3 months, it is called chronic back pain. Pain may get worse at certain times (flare-ups). There are things you can do at home to manage your pain. Follow these instructions at home: Pay attention to any changes in your symptoms. Take these actions to help with your pain: Managing pain and stiffness If told, put ice on the painful area. Your doctor may tell you to use ice for 24 48 hours after theflare-up starts. To do this: ?Put ice in a plastic bag. ?Place a towel between your skin and the bag. ?Leave the ice on for 20 minutes, 2 3 times a day. If told, put heat on the painful area. Do this as often as told by your doctor. Use the heat sourcethat your doctor recommends, such as a moist heat pack or a heating pad. ?Place a towel between your skin and the heat source. ?Leave the heat on for 20 30 minutes. ?Take off the heat if your skin turns bright red. This is especially important if you are unable tofeel pain, heat, or cold. You may have a greater risk of getting burned. Soak in a warm bath. This can help relieve pain. Activity Avoid bending and other activities that make pain worse. When standing: ?Keep your upper back and neck straight. ?Keep your shoulders pulled back. ?Avoid slouching. When sitting: ?Keep your back straight. ?Relax your shoulders. Do not round your shoulders or pull them backward. Do not sit or intelligence consultant one place for long periods of time. Take short rest breaks during the day. Lying down or standing is usually better than sitting. Resting can help relieve pain. When sitting or lying down for a long time, do some mild activity or stretching. This will help to prevent stiffness and pain. Get regular exercise. Ask your doctor what activities are safe for you. Do not lift anything that is heavier than 10 lb (4.5 kg) or the limit that you are told, until yourdoctor says that it is safe. To prevent injury when you lift things: ?Bend your knees. ?Keep the weight close to your body. ?Avoid twisting. Sleep on a firm mattress. Try lying on your side with your knees slightly bent. If you lie on your back, put a pillow under your knees. Medicines Treatment may include medicines for pain and swelling taken by mouth or put on the skin, prescription pain medicine, or muscle relaxants. Take zrra-teq-fmjcyzz and prescription medicines only as told by your doctor. Ask your doctor if the medicine prescribed to you: ?Requires you to avoid driving or using machinery. ?Can cause trouble pooping (constipation). You may need to take these actions to prevent or treat trouble pooping: ?Drink enough fluid to keep your pee (urine) pale yellow. ?Take flmp-uwy-tuyvjnv or prescription medicines. ?Eat foods that are high in fiber. These include beans, whole grains, and fresh fruits and vegetables. ?Limit foods that are high in fat and sugars. These include fried or sweet foods. General instructions Do not use any products that contain nicotine or tobacco, such as cigarettes, e- cigarettes, and chewing tobacco. If you need help quitting, ask your doctor. Keep all follow-up visits as told by your doctor. This is important. Contact a doctor if: Your pain does not get better with rest or medicine. Your pain gets worse, or you have new pain. You have a high fever. You lose weight very quickly. You have trouble doing your normal activities. Get help right away if: One or both of your legs or feet feel weak. One or both of your legs or feet lose feeling (have numbness). You have trouble controlling when you poop (have a bowel movement) or pee (urinate). You have bad back pain and: ?You feel like you may vomit (nauseous), or you vomit. ?You have pain in your belly (abdomen). ?You have shortness of breath. ?You faint. Summary When back pain lasts longer than 3 months, it is called chronic back pain. Pain may get worse at certain times (flare-ups). Use ice and heat as told by your doctor. Your doctor may tell you to use ice after flare-ups. This information is not intended to replace advice given to you by your health care provider. Make sure you discuss any questions you have with your health care provider. Document Revised: 04/20/2020 Document Reviewed: 04/20/2020 [employer] Patient Education 2022 [email or web address]. 08/05/2023 21:13:19 Acute Back Pain, Adult Acute Back Pain, Adult Acute back pain is sudden and usually short-lived. It is often caused by an injury to the muscles and tissues in the back. The injury may result from: A muscle, tendon, or ligament getting overstretched or torn. Ligaments are tissues that connect bones to each other. Lifting something improperly can cause a back strain. Wear and tear (degeneration) of the spinal disks. Spinal disks are circular tissue that provide cushioning between the bones of the spine (vertebrae). Twisting motions, such as while playing sports or doing yard work. A hit to the back. Arthritis. You may have a physical exam, lab tests, and imaging tests to find the cause of your pain. Acute back pain usually goes away with rest and home care. Follow these instructions at home: Managing pain, stiffness, and swelling Take akqo-eoc-qmkapcg and prescription medicines only as told by your health care provider. Treatment may include medicines for pain and inflammation that are taken by mouth or applied to the skin, or muscle relaxants. Your health care provider may recommend applying ice during the first 24 48 hours after your pain starts. To do this: ?Put ice in a plastic bag. ?Place a towel between your skin and the bag. ?Leave the ice on for 20 minutes, 2 3 times a day. ?Remove the ice if your skin turns bright red. This is very important. If you cannot feel pain, heat, or cold, you have a greater risk of damage to the area. If directed, apply heat to the affected area as often as told by your health care provider. Use theheat source that your health care provider recommends, such as a moist heat pack or a heating pad. ?Place a towel between your skin and the heat source. ?Leave the heat on for 20 30 minutes. ?Remove the heat if your skin turns bright red. This is especially important if you are unable to feel pain, heat, or cold. You have a greater risk of getting burned. Activity Do not stay in bed. Staying in bed for more than 1 2 days can delay your recovery. Sit up and stand up straight. Avoid leaning forward when you sit or hunching over when you stand. ?If you work at a desk, sit close to it so you do not need to lean over. Keep your chin tucked in. Keep your neck drawn back, and keep your elbows bent at a 90-degree angle (right angle). ?Sit high and close to the steering wheel when you drive. Add lower back (lumbar) support to your car seat, if needed. Take short walks on even surfaces as soon as you are able. Try to increase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 hours after your pain starts. To do this: ?Put ice in a plastic bag. ?Place a towel between your skin and the bag. ?Leave the ice on for 20 minutes, 2 3 times a day. ?Remove the ice if your skin turns bright red. This is very important. If you cannot feel pain, heat, or cold, you have a greater risk of damage to the area. If directed, apply heat to the affected area as often as told by your health care provider. Use theheat source that your health care provider recommends, such as a moist heat pack or a heating pad. ?Place a towel between your skin and the heat source. ?Leave the heat on for 20 30 minutes. ?Remove the heat if your skin turns bright red. This is especially important if you are unable to feel pain, heat, or cold. You have a greater risk of getting burned. Activity Do not stay in bed. Staying in bed for more than 1 2 days can delay your recovery. Sit up and stand up straight. Avoid leaning forward when you sit or hunching over when you stand. ?If you work at a desk, sit close to it so you do not need to lean over. Keep your chin tucked in. Keep your neck drawn back, and keep your elbows bent at a 90-degree angle (right angle). ?Sit high and close to the steering wheel when you drive. Add lower back (lumbar) support to your car seat, if needed. Take short walks on even surfaces as soon as you are able. Try to increase the length of time you walk each day. Do not sit, drive, or intelligence consultant one place for more than 30 minutes at a time. Sitting or standing for long periods of time can put stress on your back. Do not drive or use heavy machinery while taking prescription pain medicine. Use proper lifting techniques. When you bend and lift, use positions that put less stress on your back: ?Bend your knees. ?Keep the load close to your body. ?Avoid twisting. Exercise regularly as told by your health care provider. Exercising helps your back heal faster andhelps prevent back injuries by keeping muscles strong and flexible. Work with a physical therapist to make a safe exercise program, as recommended by your health care provider. Do any exercises as told by your physical therapist. Lifestyle Maintain a healthy weight. Extra weight puts stress on your back and makes it difficult to have good posture. Avoid activities or situations that make you feel anxious or stressed. Stress and anxiety increase muscle tension and can make back pain worse. Learn ways to manage anxiety and stress, such as through exercise. General instructions Sleep on a firm mattress in a comfortable position. Try lying on your side with your knees slightlybent. If you lie on your back, put a pillow under your knees. Keep your head and neck in a straight line with your spine (neutral position) when using electronicequipment like smartphones or pads. To do this: ?Raise your smartphone or pad to look at it instead of bending your head or neck to look down. ?Put the smartphone or pad at the level of your face while looking at the screen. Follow your treatment plan as told by your health care provider. This may include: ?Cognitive or behavioral therapy. ?Acupuncture or massage therapy. ?Meditation or yoga. Contact a health care provider if: You have pain that is not relieved with rest or medicine. You have increasing pain going down into your legs or buttocks. Your pain does not improve after 2 weeks. You have pain at night. You lose weight without trying. You have a fever or chills. You develop nausea or vomiting. You develop abdominal pain. Get help right away if: You develop new bowel or bladder control problems. You have unusual weakness or numbness in your arms or legs. You feel faint. These symptoms may represent a serious problem that is an emergency. Do not wait to see if the symptoms will go away. Get medical help right away. Call your local emergency services (911 in the [place] Do not drive yourself to the hospital. Summary Acute back pain is sudden and usually short-lived. Use proper lifting techniques. When you bend and lift, use positions that put less stress on your back. Take encl-abe-yabraev and prescription medicines only as told by your health care provider, and apply heat or ice as told. This information is not intended to replace advice given to you by your health care provider. Make sure you discuss any questions you have with your health care provider. Document Revised: 06/02/2021 Document Reviewed: 06/02/2021 [employer] Patient Education 2022 [email or web address]. 07/31/2023 15:31:04 Back Injury Prevention, Sywg-jo-Qgvo Back Injury Prevention Back injuries can be very painful. They can also be difficult to heal. After having one back injury, you are more likely to have another one. It is important to learn how to avoid injuring or re-injuring your back. The following tips can help you prevent a back injury. What actions can I take to prevent back injuries? Changes in your diet Talk with your doctor about what to eat. Some foods can help make the bones strong. Talk with your doctor about how much calcium and vitamin D you need each day. These nutrients help to prevent weakening of the bones (osteoporosis). Eat foods that have calcium. These include: ?Dairy products. ?Green leafy vegetables. ?Food and drinks that have calcium added to them (are fortified). Eat foods that have vitamin D. These include: ?Milk. ?Food and drinks that have vitamin D added to them. If needed, take supplements and vitamins as told by your doctor. Physical fitness Physical fitness makes your bones and muscles strong. It also improves your balance and strength. Exercise for 30 minutes a day on most days of the week, or as told by your doctor. Make sure to: ?Do aerobic exercises, such as walking, jogging, biking, or swimming. ?Do exercises that increase balance and strength, such as douglas chi and yoga. ?Do stretching exercises. ?Develop strong belly (abdominal) muscles. Your belly muscles help to support your back. Stay at a healthy weight. This lowers your risk of a back injury. Good posture Prevent back injuries by developing and keeping a good posture. To do this: Sit up straight and stand up straight. Avoid leaning forward when you sit or hunching over when youstand. Choose chairs that have good low-back (lumbar) support. If you work at a desk: ?Sit close to it so you do not need to lean over. ?Keep your chin tucked in. ?Keep your neck drawn back. ?Keep your elbows bent so that your arms make a corner (right angle). When you drive: ?Sit high and close to the steering wheel. Add low-back support to your car seat, if needed. ?Take breaks every hour if you are driving for long periods of time. Avoid sitting or standing in one position for very long. Take breaks to get up, stretch, and walk around at least once every hour. Sleep on your side with your knees slightly bent, or sleep on your back with a pillow under your knees. Keep your head and neck in a straight line with your spine (neutral position) when using electronics like smartphones or tablets. To do this: ?Raise your smartphone or tablet to look at it instead of bending your head or neck to look down. ?Put the smartphone or tablet at the level of your face while looking at the screen. Lifting, twisting, and reaching Heavy lifting ?Avoid heavy lifting, especially lifting over and over again. If you must do heavy lifting: ?Stretch before lifting. ?Work slowly. ?Rest between lifts. ?Use a tool such as a cart or a kelly to move objects. ?Make a few small trips instead of carrying one heavy load. ?Ask for help when you need it, especially when moving big objects. ?Follow these steps when lifting: ?Stand with your feet shoulder-width apart. ?Get as close to the object as you can. Do not berry picker machine operator a heavy object that is far from your body. ?Use handles or lifting straps if you have them. ?Bend at your knees. Squat down, but keep your heels off the floor. ?Keep your shoulders back. Keep your chin tucked in. Keep your back straight. ?Lift the object slowly while you tighten the muscles in your legs, belly, and butt. Keep the object as close to the center of your body as you can. ?Follow these steps when putting down a heavy load: ?Stand with your feet shoulder-width apart. ?Lower the object slowly while you tighten the muscles in your legs, belly, and butt. Keep the object as close to the center of your body as you can. ?Keep your shoulders back. Keep your chin tucked in. Keep your back straight. ?Bend at your knees. Squat down, but keep your heels off the floor. ?Use handles or lifting straps if you have them. Twisting and reaching ?Avoid lifting heavy objects above your waist. ?Do not twist at your waist while you are lifting or carrying a load. If you need to turn, move your feet. ?Do not bend over without bending at your knees. ?Avoid reaching over your head, across a table, or for an object on a high surface. Other things to do Avoid wet floors and icy ground. Keep sidewalks clear of ice to prevent falls. Do not sleep on a mattress that is too soft or too hard. Put heavier objects on shelves at waist level. Put oyster worker objects on lower or higher shelves. Find ways to lower your stress, such as: ?Exercise. ?Massage. ?Using a technique to help you relax. Talk with your doctor if you feel worried or sad (depressed). These conditions can make back pain worse. Wear flat heeled shoes with cushioned soles. Use both shoulder straps when carrying a backpack. Do not smoke or use any products that contain nicotine or tobacco. If you need help quitting, ask your doctor. Summary Back injuries can be very painful and difficult to heal. You can keep your back healthy by making certain changes. These include eating foods that make bones strong, working on being physically fit, developing a good posture, and lifting heavy objects in asafe way. Talk with your doctor about how much calcium and vitamin D you need each day. These nutrients help to prevent weakening of the bones (osteoporosis). This information is not intended to replace advice given to you by your health care provider. Make sure you discuss any questions you have with your health care provider. Document Revised: 07/03/2021 Document Reviewed: 07/03/2021 [employer] Patient Education 2022 [employer] 07/31/2023 15:31:04 Back Exercises, Nyqr-ma-Fktl Back Exercises These exercises help to make your trunk and back strong. They also help to keep the lower back flexible. Doing these exercises can help to prevent or lessen pain in your lower back. If you have back pain, try to do these exercises 2 3 times each day or as told by your doctor. As you get better, do the exercises once each day. Repeat the exercises more often as told by your doctor. To stop back pain from coming back, do the exercises once each day, or as told by your doctor. Do exercises exactly as told by your doctor. Stop right away if you feel sudden pain or your pain gets worse. Exercises Single knee to chest Do these steps 3 5 times in a row for each le.Lie on your back on a firm bed or the floor with your legs stretched out. 2.Bring one knee to your chest. 3.Grab your knee or thigh with both hands and hold it in place. 4.Pull on your knee until you feel a gentle stretch in your lower back or butt. 5.Keep doing the stretch for 10 30 seconds. 6.Slowly let go of your leg and straighten it. Pelvic tilt Do these steps 5 10 times in a row: 1.Lie on your back on a firm bed or the floor with your legs stretched out. 2.Bend your knees so they point up to the ceiling. Your feet should be flat on the floor. 3.Tighten your lower belly (abdomen) muscles to press your lower back against the floor. This will make your tailbone point up to the ceiling instead of pointing down to your feet or the floor. 4.Stay in this position for 5 10 seconds while you gently tighten your muscles and breathe evenly. Cat cow Do these steps until your lower back bends more easily: 1.Get on your hands and knees on a firm bed or the floor. Keep your hands under your shoulders, andkeep your knees under your hips. You may put padding under your knees. 2.Let your head hang down toward your chest. Tighten (contract) the muscles in your belly. Point your tailbone toward the floor so your lower back becomes rounded like the back of a cat. 3.Stay in this position for 5 seconds. 4.Slowly lift your head. Let the muscles of your belly relax. Point your tailbone up toward the ceiling so your back forms a sagging arch like the back of a cow. 5.Stay in this position for 5 seconds. Press-ups Do these steps 5 10 times in a row: 1.Lie on your belly (face-down) on a firm bed or the floor. 2.Place your hands near your head, about shoulder-width apart. 3.While you keep your back relaxed and keep your hips on the floor, slowly straighten your arms to raise the top half of your body and lift your shoulders. Do not use your back muscles. You may change where you place your hands to make yourself more comfortable. 4.Stay in this position for 5 seconds. Keep your back relaxed. 5.Slowly return to lying flat on the floor. Bridges Do these steps 10 times in a row: 1.Lie on your back on a firm bed or the floor. 2.Bend your knees so they point up to the ceiling. Your feet should be flat on the floor. Your armsshould be flat at your sides, next to your body. 3.Tighten your butt muscles and lift your butt off the floor until your waist is almost as high as your knees. If you do not feel the muscles working in your butt and the back of your thighs, slide your feet 1 2 inches (2.5 5 cm) farther away from your butt. 4.Stay in this position for 3 5 seconds. 5.Slowly lower your butt to the floor, and let your butt muscles relax. If this exercise is too easy, try doing it with your arms crossed over your chest. Belly crunches Do these steps 5 10 times in a row: 1.Lie on your back on a firm bed or the floor with your legs stretched out. 2.Bend your knees so they point up to the ceiling. Your feet should be flat on the floor. 3.Cross your arms over your chest. 4.Tip your chin a little bit toward your chest, but do not bend your neck. 5.Tighten your belly muscles and slowly raise your chest just enough to lift your shoulder blades atiny bit off the floor. Avoid raising your body higher than that because it can put too much stresson your lower back. 6.Slowly lower your chest and your head to the floor. Back lifts Do these steps 5 10 times in a row: 1.Lie on your belly (face-down) with your arms at your sides, and rest your forehead on the floor. 2.Tighten the muscles in your legs and your butt. 3.Slowly lift your chest off the floor while you keep your hips on the floor. Keep the back of yourhead in line with the curve in your back. Look at the floor while you do this. 4.Stay in this position for 3 5 seconds. 5.Slowly lower your chest and your face to the floor. Contact a doctor if: Your back pain gets a lot worse when you do an exercise. Your back pain does not get better within 2 hours after you exercise. If you have any of these problems, stop doing the exercises. Do not do them again unless your doctor says it is okay. Get help right away if: You have sudden, very bad back pain. If this happens, stop doing the exercises. Do not do them again unless your doctor says it is okay. This information is not intended to replace advice given to you by your health care provider. Make sure you discuss any questions you have with your health care provider. Document Revised: 05/24/2021 Document Reviewed: 05/24/2021 [employer] Patient Education 2022 [email or web address]. Follow Up Care 07/31/2023 14:21:17 With:Cheyanne Rosas Address: [address] [place] [address] [place] [phone] Business (1) When:08/03/2023 14:50:19 Comments:Call Dr for diagnosis based follow up [facility]05-08-2024 Evaluation + Plan noteExtracted from: Title:ED Note Author:Landon Tidwell PA-C te:07/31/23 Acute back pain (M54.9: [place], unspecified) Orders: ketorolac, 30 mg = 1 mL, Injection, IntraMuscular, Once, Stop date 07/31/23 14:48:00 EDT, STAT, Start date 07/31/23 14:48:00 EDT, 07/31/23 14:48:00 EDT morphine, 4 mg = 1 mL, Injection, IntraMuscular, Once, Stop date 07/31/23 14:48:00 EDT, STAT, Start date 07/31/23 14:48:00 EDT, 07/31/23 14:48:00 EDT Future Appointments Appointment Date:08/07/2023 08:00:00 AM Scheduled Provider:Ashia Simental Location:[facility] Appointment Type: Intake Appointment Date:08/14/2023 03:15:00 PM Scheduled Provider:Domenic Sher DO Location:[facility] Appointment Type:Pain Management - Follow Up (FT) Future Scheduled Tests Laboratory* TSH With T4fr Reflex 07/17/23 * Urinalysis with Micro 07/17/23 * Lipid Panel 07/17/23 * Drug Screen Urine 07/17/23 Radiology* MA Mamm Screen w/CAD if perf and 3D Kenan 07/17/23 [facility]05-03-2024 Evaluation + Plan noteExtracted from: Title:ED Note Author:Jorge Mcintosh DO Date:07/25 Low back pain (M54.50: Low b ack pain, unspecified) Orders: HYDROmorphone, 1 mg = 1 mL, Injection, IntraMuscular, Once, Stop date 07/26/23 11:17:00 EDT, STAT, Start date 07/26/23 11:17:00 EDT, 07/26/23 11:17:00 EDT ketorolac, 60 mg = 2 mL, Injection, IntraMuscular, Once, Stop date 07/26/23 11:17:00 EDT, STAT, Start date 07/26/23 11:17:00 EDT, 07/26/23 11:17:00 EDT methocarbamol, 750 mg = 1 tab(s), Oral, TID, X 7 day(s), # 21 tab(s), Refills(s) 0, Pharmacy: [facility]/pharmacy #[id number], 160, cm, 07/26/23 11:12:00 EDT, Height/Length Dosing, 116.8, kg, 07/26/23 11:12:00 EDT, Weight Dosing naproxen, 500 mg = 1 tab(s), Oral, BID, Take one tab by mouth two times a day, # 14 tab(s), Refills(s) 0, Pharmacy: [facility]/pharmacy #[id number], 160, cm, 07/26/23 11:12:00 EDT, Height/Length Dosing, 116.8, kg, 07/26/23 11:12:00 EDT, Weight Dosing Future Appointments Appointment Date:08/07/2023 08:00:00 AM Scheduled Provider:Ashia Simental Location:[facility] Appointment Type: Intake Appointment Date:08/14/2023 03:15:00 PM Scheduled Provider:Domenic Sher DO Location:[facility] Appointment Type:Pain Management - Follow Up (FT) Future Scheduled Tests Laboratory* TSH With T4fr Reflex 07/17/23 * Urinalysis with Micro 07/17/23 * Lipid Panel 07/17/23 * Drug Screen Urine 07/17/23 Radiology* MA Mamm Screen w/CAD if perf and 3D Kenan 07/17/23 [facility]05-03-2024 Hospital Discharge instructions Follow Up Care 07/26/2023 11:04:26 With:Cheyanne Rosas Address: [facility]ald, [address] [place], [place] [id number] Business (1) When:Within 3 Day(s) [facility]04-24-2024 Hospital Discharge instructions Patient Education 07/17/2023 09:41:09 Finding Treatment for Addiction Finding Treatment for Addiction Addiction is a complex disease of the brain that causes an uncontrollable (compulsive) need for: A substance. This includes alcohol, drugs, or prescription medicines, such as painkillers. An activity or behavior, such as gambling or shopping. What are the risks? Addiction is a progressive disease. Without treatment, addiction can get worse. Living with addiction puts you at higher risk for injury, poor health, loss of employment, loss of money, and even . Addiction changes the way your brain works. Because of this change: The need for the medicine, drug, or activity can become so strong that you think about it all the time. Getting more and more of your addiction becomes the most important thing to you. You may find yourself leaving other activities and relationships to pursue your addiction. You can become physically dependent on a substance. Your health, behavior, emotions, and relationships can change for the worse. How to select a treatment program Know your options There may be options for treatment programs and plans based on your addiction, condition, needs, and preferences. No single treatment is right for everyone. Treatment programs can be: ?Outpatient. You live at home and go to work or school, but you go to a clinic for treatment. ?Inpatient. You live and sleep at the program facility during treatment. Programs may include: ?Medicine. You may need medicine to treat the addiction itself or to treat anxiety or depression. ?Counseling and behavior therapy. This can help individuals and families behave in healthier ways and relate more effectively. ?Support groups. Confidential group therapy, such as a 12-step program, can help individuals and families during treatment and recovery. ?A combination of education, counseling, and a 12-step, spirituality-based approach. Think about your needs Think about your individual requirements when selecting a treatment program. Ask about: The overall approach to treatment. ?Some programs are strictly 12-step programs. Some have a more flexible approach. ?Programs may differ in length of stay, setting, and size. ?Some programs include your family in your treatment plan. Support may be offered to them throughout the treatment process, as well as instructions for them when you are discharged. ?You may continue to receive support after you have left the program. The types of medical services that are offered. Find out if the program: ?Offers specific treatment for your particular addiction. ?Meets all of your needs, including physical and cultural needs. ?Includes any medicines you might need. ?Offers mental health counseling as part of your treatment. ?Offers the 12-step meetings at the center, or if transport is available for you to attend meetingsat other locations. The cost and types of insurance that are accepted. ?Some programs are sponsored by the government. They support people in treatment who do not have private insurance. ?If you do not have insurance, or if you choose to attend a program that does not accept your insurance, call the treatment center. Tell them your financial needs and ask whether a payment plan can be set up. ?There are also organizations that will help you find the resources for treatment. You can find them online by searching for treatment for addiction. If the program is certified by the appropriate government agency. Follow these instructions at home: Find supportive people who will help you stay away from your addiction and stay sober. Do not use the substance or engage in the activity. If you have been through treatment: ?Follow your plan. The plan is usually developed by you and your health care provider during treatment. These discussions are confidential. ?Go to meetings with other people in recovery. ?Avoid people, situations, and things that lead you to do the things you are addicted to (triggers). Where to find more information Recovered: recovered.org Substance Abuse and Mental Health Services Administration (SAMHSA): findtreatment.samhsa.gov National [place] on Problem Gambling: www.ncpgambling.org Get help right away if: You have serious thoughts about hurting yourself or others. Get help right away if you feel like you may hurt yourself or others, or have thoughts about takingyour own life. Go to your nearest emergency room or: Call 911. Call the National Suicide Prevention Lifeline at or 652 in the [place] This is open 24hours a day. Text the Crisis Text Line at 075883. Summary Addiction changes the way your brain works. These changes cause a desire to repeat and increase theuse of the substance or behavior. Addiction is a progressive disease. Without treatment, addiction can get worse. Living with addiction puts you at higher risk for injury, poor health, loss of employment, loss of money, and even . There may be options for treatment programs and plans based on your addiction, condition, needs, and preferences. No single treatment is right for everyone. Your health care provider can help you find the right treatment. These discussions are confidential. This information is not intended to replace advice given to you by your health care provider. Make sure you discuss any questions you have with your health care provider. Document Revised: 10/05/2021 Document Reviewed: 09/13/2021 [employer] Patient Education 2022 [email or web address]. 07/17/2023 09:41:03 Managing Anxiety, Adult Managing Anxiety, Adult After being diagnosed with anxiety, you may be relieved to know why you have felt or behaved a certain way. You may also feel overwhelmed about the treatment ahead and what it will mean for your life. With care and support, you can manage this condition. How to manage lifestyle changes Managing stress and anxiety Stress is your body's reaction to life changes and events, both good and bad. Most stress will lastjust a few hours, but stress can be ongoing and can lead to more than just stress. Although stress can play a major role in anxiety, it is not the same as anxiety. Stress is usually caused by something external, such as a deadline, test, or competition. Stress normally passes after the triggering event has ended. Anxiety is caused by something internal, such as imagining a terrible outcome or worrying that something will go wrong that will devastate you. Anxiety often does not go away even after the triggering event is over, and it can become long-term (chronic) worry. It is important to understand the differences between stress and anxiety and to manage your stress effectively so that it does not lead gonzalez anxious response. Talk with your health care provider or a counselor to learn more about reducing anxiety and stress.He or she may suggest tension reduction techniques, such as: Music therapy. Spend time creating or listening to music that you enjoy and that inspires you. Mindfulness-based meditation. Practice being aware of your normal breaths while not trying to control your breathing. It can be done while sitting or walking. Centering prayer. This involves focusing on a word, phrase, or sacred image that means something toyou and brings you peace. Deep breathing. To do this, expand your stomach and inhale slowly through your nose. Hold your breath for 3 5 seconds. Then exhale slowly, letting your stomach muscles relax. Self-talk. Learn to notice and identify thought patterns that lead to anxiety reactions and change those patterns to thoughts that feel peaceful. Muscle relaxation. Taking time to tense muscles and then relax them. Choose a tension reduction technique that fits your lifestyle and personality. These techniques take time and practice. Set aside 5 15 minutes a day to do them. Therapists can offer counseling and training in these techniques. The training to help with anxiety may be covered by some insurance plans. Other things you can do to manage stress and anxiety include: Keeping a stress diary. This can help you learn what triggers your reaction and then learn ways to manage your response. Thinking about how you react to certain situations. You may not be able to control everything, but you can control your response. Making time for activities that help you relax and not feeling guilty about spending your time in this way. Doing visual imagery. This involves imagining or creating mental pictures to help you relax. Practicing yoga. Through yoga poses, you can lower tension and promote relaxation. Medicines Medicines can help ease symptoms. Medicines for anxiety include: Antidepressant medicines. These are usually prescribed for long-term daily control. Anti-anxiety medicines. These may be added in severe cases, especially when panic attacks occur. Medicines will be prescribed by a health care provider. When used together, medicines, psychotherapy, and tension reduction techniques may be the most effective treatment. Relationships Relationships can play a big part in helping you recover. Try to spend more time connecting with trusted friends and family members. Consider going to couples counseling if you have a partner, taking family education classes, or going to family therapy. Therapy can help you and others better understand your condition. How to recognize changes in your anxiety Everyone responds differently to treatment for anxiety. Recovery from anxiety happens when symptomsdecrease and stop interfering with your daily activities at home or work. This may mean that you will start to: Have better concentration and focus. Worry will interfere less in your daily thinking. Sleep better. Be less irritable. Have more energy. Have improved memory. It is also important to recognize when your condition is getting worse. Contact your health care provider if your symptoms interfere with home or work and you feel like your condition is not improving. Follow these instructions at home: Activity Exercise. Adults should do the following: ?Exercise for at least 150 minutes each week. The exercise should increase your heart rate and makeyou sweat (moderate-intensity exercise). ?Strengthening exercises at least twice a week. Get the right amount and quality of sleep. Most adults need 7 9 hours of sleep each night. Lifestyle Eat a healthy diet that includes plenty of vegetables, fruits, whole grains, low-fat dairy products, and lean protein. ?Do not eat a lot of foods that are high in fats, added sugars, or salt (sodium). Make choices that simplify your life. Do not use any products that contain nicotine or tobacco. These products include cigarettes, chewing tobacco, and vaping devices, such as e-cigarettes. If you need help quitting, ask your health careprovider. Avoid caffeine, alcohol, and certain isce-age-libeulz cold medicines. These may make you feel worse. Ask your pharmacist which medicines to avoid. General instructions Take gqhy-nex-ncenwem and prescription medicines only as told by your health care provider. Keep all follow-up visits. This is important. Where to find support You can get help and support from these sources: Self-help groups. Online and community organizations. A trusted spiritual leader. Couples counseling. Family education classes. Family therapy. Where to find more information You may find that joining a support group helps you deal with your anxiety. The following sources can help you locate counselors or support groups near you: Mental Health [place]: www.mentalhealthamer[place].net Anxiety and Depression Association of [place] (ADAA): www.adaa.org National [place] on Mental Illness (KATI): www.kati.org Contact a health care provider if: You have a hard time staying focused or finishing daily tasks. You spend many hours a day feeling worried about everyday life. You become exhausted by worry. You start to have headaches or frequently feel tense. You develop chronic nausea or diarrhea. Get help right away if: You have a racing heart and shortness of breath. You have thoughts of hurting yourself or others. If you ever feel like you may hurt yourself or others, or have thoughts about taking your own life,get help right away. Go to your nearest emergency department or: Call your local emergency services (232 in the [place] Call a suicide crisis helpline, such as the National Suicide Prevention Lifeline at or 765 in the [place] This is open 24 hours a day in the [place] Text the Crisis Text Line at 642408 (in the [place] Summary Taking steps to learn and use tension reduction techniques can help calm you and help prevent triggering an anxiety reaction. When used together, medicines, psychotherapy, and tension reduction techniques may be the most effective treatment. Family, friends, and partners can play a big part in supporting you. This information is not intended to replace advice given to you by your health care provider. Make sure you discuss any questions you have with your health care provider. Document Revised: 10/04/2021 Document Reviewed: 07/02/2021 [employer] Patient Education 2022 [email or web address]. 07/17/2023 09:40:59 Exercising to Lose Weight Exercising to Lose Weight Getting regular exercise is important for everyone. It is especially important if you are overweight. Being overweight increases your risk of heart disease, stroke, diabetes, high blood pressure, andseveral types of cancer. Exercising, and reducing the calories you consume, can help you lose weight and improve fitness and health. Exercise can be moderate or vigorous intensity. To lose weight, most people need to do a certain amount of moderate or vigorous-intensity exercise each week. How can exercise affect me? You lose weight when you exercise enough to burn more calories than you eat. Exercise also reduces body fat and builds muscle. The more muscle you have, the more calories you burn. Exercise also: Improves mood. Reduces stress and tension. Improves your overall fitness, flexibility, and endurance. Increases bone strength. Moderate-intensity exercise Moderate-intensity exercise is any activity that gets you moving enough to burn at least three times more energy (calories) than if you were sitting. Examples of moderate exercise include: Walking a mile in 15 minutes. Doing light yard work. Biking at an easy pace. Most people should get at least 150 minutes of moderate-intensity exercise a week to maintain theirbody weight. Vigorous-intensity exercise Vigorous-intensity exercise is any activity that gets you moving enough to burn at least six times more calories than if you were sitting. When you exercise at this intensity, you should be working hard enough that you are not able to carry on a conversation. Examples of vigorous exercise include: Running. Playing a team sport, such as football, basketball, and soccer. Jumping rope. Most people should get at least 75 minutes a week of vigorous exercise to maintain their body weight. What actions can I take to lose weight? The amount of exercise you need to lose weight depends on: Your age. The type of exercise. Any health conditions you have. Your overall physical ability. Talk to your health care provider about how much exercise you need and what types of activities aresafe for you. Nutrition Make changes to your diet as told by your health care provider or diet and medicare contact specialist (dietitian). This may include: ?Eating fewer calories. ?Eating more protein. ?Eating less unhealthy fats. ?Eating a diet that includes fresh fruits and vegetables, whole grains, low-fat dairy products, andlean protein. ?Avoiding foods with added fat, salt, and sugar. Drink plenty of water while you exercise to prevent dehydration or heat stroke. Activity Choose an activity that you enjoy and set realistic goals. Your health care provider can help you make an exercise plan that works for you. Exercise at a moderate or vigorous intensity most days of the week. ?The intensity of exercise may vary from person to person. You can tell how intense a workout is for you by paying attention to your breathing and heartbeat. Most people will notice their breathing and heartbeat get faster with more intense exercise. Do resistance training twice each week, such as: ?Push-ups. ?Sit-ups. ?Lifting weights. ?Using resistance bands. Getting short amounts of exercise can be just as helpful as long, structured periods of exercise. If you have trouble finding time to exercise, try doing these things as part of your daily routine: ?Get up, stretch, and walk around every 30 minutes throughout the day. ?Go for a walk during your lunch break. ?Park your car farther away from your destination. ?If you take public transportation, get off one stop early and walk the rest of the way. ?Make phone calls while standing up and walking around. ?Take the stairs instead of elevators or escalators. Wear comfortable clothes and shoes with good support. Do not exercise so much that you hurt yourself, feel dizzy, or get very short of breath. Where to find more information [place] Department of Health and Human Services: www.hhs.gov Centers for Disease Control and Prevention: www.cdc.gov Contact a health care provider: Before starting a new exercise program. If you have questions or concerns about your weight. If you have a medical problem that keeps you from exercising. Get help right away if: You have any of the following while exercising: ?Injury. ?Dizziness. ?Difficulty breathing or shortness of breath that does not go away when you stop exercising. ?Chest pain. ?Rapid heartbeat. These symptoms may represent a serious problem that is an emergency. Do not wait to see if the symptoms will go away. Get medical help right away. Call your local emergency services (911 in the [place] Do not drive yourself to the hospital. Summary Getting regular exercise is especially important if you are overweight. Being overweight increases your risk of heart disease, stroke, diabetes, high blood pressure, and several types of cancer. Losing weight happens when you burn more calories than you eat. Reducing the amount of calories you eat, and getting regular moderate or vigorous exercise each week, helps you lose weight. This information is not intended to replace advice given to you by your health care provider. Make sure you discuss any questions you have with your health care provider. Document Revised: 05/07/2021 Document Reviewed: 05/07/2021 [employer] Patient Education 2022 [employer] 07/17/2023 09:40:58 BMI for Adults BMI for Adults What is BMI? Body mass index (BMI) is a number that is calculated from a person's weight and height. BMI can help estimate how much of a person's weight is composed of fat. BMI does not measure body fat directly.Rather, it is an alternative to procedures that directly measure body fat, which can be difficult and expensive. BMI can help identify people who may be at higher risk for certain medical problems. What are BMI measurements used for? BMI is used as a screening tool to identify possible weight problems. It helps determine whether a person is obese, overweight, a healthy weight, or underweight. BMI is useful for: Identifying a weight problem that may be related to a medical condition or may increase the risk for medical problems. Promoting changes, such as changes in diet and exercise, to help reach a healthy weight. BMI screening can be repeated to see if these changes are working. How is BMI calculated? BMI involves measuring your weight in relation to your height. Both height and weight are measured,and the BMI is calculated from those numbers. This can be done either in [place] ([place] or metric measurements. Note that charts and online BMI calculators are available to help you find your BMI quickly and easily without having to do these calculations yourself. To calculate your BMI in [place] ([place] measurements: 1.Measure your weight in pounds (lb). 2.Multiply the number of pounds by 703. For example, for a person who weighs 180 lb, multiply that number by 703, which equals 126,540. 3.Measure your height in inches. Then multiply that number by itself to get a measurement called inches squared. For example, for a person who is 70 inches tall, the inches squared measurement is 70 inches x 70inches, which equals 4,900 inches squared. 4.Divide the total from step 2 (number of lb x 703) by the total from step 3 (inches squared): 126,540 4,900 = 25.8. This is your BMI. To calculate your BMI in metric measurements: 1.Measure your weight in kilograms (kg). 2.Measure your height in meters (m). Then multiply that number by itself to get a measurement called meters squared. For example, for a person who is 1.75 m tall, the meters squared measurement is 1.75 m x 1.75 m, which is equal to 3.1 meters squared. 3.Divide the number of kilograms (your weight) by the meters squared number. In this example: 70 3.1 = 22.6. This is your BMI. What do the results mean? BMI charts are used to identify whether you are underweight, normal weight, overweight, or obese. The following guidelines will be used: Underweight: BMI less than 18.5. Normal weight: BMI between 18.5 and 24.9. Overweight: BMI between 25 and 29.9. Obese: BMI of 30 or above. Keep these notes in mind: Weight includes both fat and muscle, so someone with a muscular build, such as an athlete, may havea BMI that is higher than 24.9. In cases like these, BMI is not an accurate measure of body fat. To determine if excess body fat is the cause of a BMI of 25 or higher, further assessments may needto be done by a health care provider. BMI is usually interpreted in the same way for men and women. Where to find more information For more information about BMI, including tools to quickly calculate your BMI, go to these websites: Centers for Disease Control and Prevention: www.cdc.gov [place] [employer] Association: www.heart.org National Heart, Lung, and Blood [place]: www.nhlbi.nih.gov Summary Body mass index (BMI) is a number that is calculated from a person's weight and height. BMI may help estimate how much of a person's weight is composed of fat. BMI can help identify thosewho may be at higher risk for certain medical problems. BMI can be measured using [place] measurements or metric measurements. BMI charts are used to identify whether you are underweight, normal weight, overweight, or obese. This information is not intended to replace advice given to you by your health care provider. Make sure you discuss any questions you have with your health care provider. Document Revised: 12/02/2019 Document Reviewed: 10/09/2019 [employer] Patient Education 2022 [email or web address]. 07/17/2023 09:40:55 Heart Disease Prevention Heart Disease Prevention Heart disease is the leading cause of in the world. Coronary artery disease is the most common cause of heart disease. This condition results when cholesterol and other substances (plaque) build up inside the boyle of the blood vessels that supply your heart muscle (arteries). This buildup inarteries is called atherosclerosis. You can take actions to lower your risk of heart disease. How can heart disease affect me? Heart disease can cause many unpleasant symptoms and complications, such as: Chest pain (angina). Reduced or blocked blood flow to your heart. This can cause: ?Irregular heartbeats (arrhythmias). ?Heart attack. ?Heart failure. What can increase my risk? The following factors may make you more likely to develop this condition: High blood pressure (hypertension). High cholesterol. A diet high in saturated fats or trans fats. Obesity. Diabetes. Having a family history of heart disease. Certain lifestyle factors, including: ?Smoking. ?Lack of physical activity. ?Drinking too much alcohol. What actions can I take to prevent heart disease? Nutrition Follow a heart-healthy eating plan as told by your health care provider. Examples include the DASH eating plan. DASH stands for Dietary Approaches to Stop Hypertension. Generally, it is recommended that you: ?Eat less salt (sodium). Ask your health care provider how much sodium is safe for you. Most peopleshould have less than 2,300 mg each day. ?Limit unhealthy fats, such as saturated and trans fats, in your diet. You can do this by eating low-fat dairy products, eating less red meat, and avoiding processed foods. ?Eat healthy fats (omega-3 fatty acids). These are found in fish, such as mackerel or salmon. ?Eat more fruits and vegetables. You should try to fill one-half of your plate with fruits and vegetables at each meal. ?Eat more whole grains. ?Avoid foods and drinks that have added sugars. Try to limit how much added sugar you have to: ?Less than 25 grams a day for women. ?Less than 36 grams a day for men. Lifestyle Get regular exercise. This is one of the most important things you can do for your health. Generally, it is recommended that you: ?Exercise for at least 30 minutes on most days of the week (150 minutes each week). This should be exercise that causes your heart to beat faster (aerobic exercise). ?Add strength exercises on at least 2 days each week. Do not use any products that contain nicotine or tobacco. These products include cigarettes, chewing tobacco, and vaping devices, such as e-cigarettes. These can damage your heart and blood vessels. If you need help quitting, ask your health care provider. Alcohol use Do not drink alcohol if: ?Your health care provider tells you not to drink. ?You are , may be , or are planning to become . If you drink alcohol: ?Limit how much you have to: ?0 1 drink a day for women. ?0 2 drinks a day for men. ?Know how much alcohol is in your drink. In the [place] one drink equals one 12 oz bottle of beer (355 mL), one 5 oz glass of wine (148 mL), or one 1 oz glass of hard liquor (44 mL). Medicines Take jzat-bav-qeonebk and prescription medicines only as told by your health care provider. Work with your health care provider to find out whether it is safe and beneficial for you to take aspirin daily. Make sure that you understand how much to take and what form to take. Depending on your risk factors, your health care provider may prescribe medicines to lower your risk of heart disease or to control related conditions. You may take medicine to: ?Lower cholesterol. ?Control blood pressure. ?Control diabetes. General information Keep your blood pressure under control, as recommended by your health care provider. For most healthy people, the upper number of their blood pressure (systolic) should be no higher than 120, and thelower number (diastolic) no higher than 80. Treatment may be needed if your blood pressure is higher than 130/80. Have your blood pressure checked at least every 2 years. Your health care provider may check your blood pressure more often if you have high blood pressure. After age 20, have your cholesterol checked every 4 6 years. If you have risk factors for heart disease, you may need to have it checked more often. Treatment may be needed if your cholesterol is high. Have your body mass index (BMI) checked every year. Your health care provider can calculate your BMI from your height and weight. Check your waist circumference. It should be: ?No more than 35 inches (89 cm) for women who are not . ?No more than 40 inches (102 cm) for men. Work with your health care provider to lose weight, if needed, or to maintain a healthy weight. Where to find more information: Centers for Disease Control and Prevention: www.cdc.gov/heartdisease [place] [employer]: www.heart.org Summary Heart disease is the leading cause of in the world. Heart disease can cause chest pain, abnormal heart rhythms, heart attack, and heart failure. Some of the risk factors for heart disease include high blood pressure, high cholesterol, and smoking. You can take actions to lower your chances of developing heart disease. Work with your health care provider to reduce your risk by following a heart-healthy diet, being physically active, and controlling your weight, blood pressure, and cholesterol level. This information is not intended to replace advice given to you by your health care provider. Make sure you discuss any questions you have with your health care provider. Document Revised: 11/08/2021 Document Reviewed: 11/08/2021 [employer] Patient Education 2022 [email or web address]. 07/17/2023 09:40:54 Form - Blood Pressure Record Sheet Blood Pressure Record Sheet To take your blood pressure, you will need a blood pressure machine. You may be prescribed one, or you can buy a blood pressure machine (blood pressure monitor) at your clinic, drug store, or online.When choosing one, look for these features: An automatic monitor that has an arm cuff. A cuff that wraps snugly, but not too tightly, around your upper arm. You should be able to fit only one finger between your arm and the cuff. A device that stores blood pressure reading results. Do not choose a monitor that measures your blood pressure from your wrist or finger. Follow your health care provider's instructions for how to take your blood pressure. To use this form: Get one reading in the morning (a.m.) before you take any medicines. Get one reading in the evening (p.m.) before supper. Take at least two readings with each blood pressure check. This makes sure the results are correct.Wait 1 2 minutes between measurements. Write down the results in the spaces on this form. Repeat this once a week, or as told by your health care provider. Make a follow-up appointment with your health care provider to discuss the results. Blood pressure log Date: a.m. (1st reading) (2nd reading) p.m. (1st reading) (2nd reading) Date: a.m. (1st reading) (2nd reading) p.m. (1st reading) (2nd reading) Date: a.m. (1st reading) (2nd reading) p.m. (1st reading) (2nd reading) Date: a.m. (1st reading) (2nd reading) p.m. (1st reading) (2nd reading) Date: a.m. (1st reading) (2nd reading) p.m. (1st reading) (2nd reading) This information is not intended to replace advice given to you by your health care provider. Make sure you discuss any questions you have with your health care provider. Document Revised: 11/23/2021 Document Reviewed: 11/23/2021 [employer] Patient Education 2022 [email or web address]. 07/17/2023 09:40:54 DASH Eating Plan DASH Eating Plan DASH stands for Dietary Approaches to Stop Hypertension. The DASH eating plan is a healthy eating plan that has been shown to: Reduce high blood pressure (hypertension). Reduce your risk for type 2 diabetes, heart disease, and stroke. Help with weight loss. What are tips for following this plan? Reading food labels Check food labels for the amount of salt (sodium) per serving. Choose foods with less than 5 percent of the Daily Value of sodium. Generally, foods with less than 300 milligrams (mg) of sodium per serving fit into this eating plan. To find whole grains, look for the word whole as the first word in the ingredient list. Shopping Buy products labeled as low-sodium or no salt added. Buy fresh foods. Avoid canned foods and pre-made or frozen meals. Cooking Avoid adding salt when cooking. Use salt-free seasonings or herbs instead of table salt or sea salt. Check with your health care provider or pharmacist before using salt substitutes. Do not todd foods. Cook foods using healthy methods such as baking, boiling, grilling, roasting, andbroiling instead. Cook with heart-healthy oils, such as olive, canola, avocado, soybean, or sunflower oil. Meal planning Eat a balanced diet that includes: ?4 or more servings of fruits and 4 or more servings of vegetables each day. Try to fill one-half of your plate with fruits and vegetables. ?6 8 servings of whole grains each day. ?Less than 6 oz (170 g) of lean meat, poultry, or fish each day. A 3-oz (85-g) serving of meat is about the same size as a deck of cards. One egg equals 1 oz (28 g). ?2 3 servings of low-fat dairy each day. One serving is 1 cup (237 mL). ?1 serving of nuts, seeds, or beans 5 times each week. ?2 3 servings of heart-healthy fats. Healthy fats called omega-3 fatty acids are found in foods such as walnuts, flaxseeds, fortified milks, and eggs. These fats are also found in cold-water fish, such as sardines, salmon, and mackerel. Limit how much you eat of: ?Canned or prepackaged foods. ?Food that is high in trans fat, such as some fried foods. ?Food that is high in saturated fat, such as fatty meat. ?Desserts and other sweets, sugary drinks, and other foods with added sugar. ?Full-fat dairy products. Do not salt foods before eating. Do not eat more than 4 egg yolks a week. Try to eat at least 2 vegetarian meals a week. Eat more home-cooked food and less restaurant, buffet, and fast food. Lifestyle When eating at a restaurant, ask that your food be prepared with less salt or no salt, if possible. If you drink alcohol: ?Limit how much you use to: ?0 1 drink a day for women who are not . ?0 2 drinks a day for men. ?Be aware of how much alcohol is in your drink. In the [place] one drink equals one 12 oz bottle of beer (355 mL), one 5 oz glass of wine (148 mL), or one 1 oz glass of hard liquor (44 mL). General information Avoid eating more than 2,300 mg of salt a day. If you have hypertension, you may need to reduce your sodium intake to 1,500 mg a day. Work with your health care provider to maintain a healthy body weight or to lose weight. Ask what an ideal weight is for you. Get at least 30 minutes of exercise that causes your heart to beat faster (aerobic exercise) most days of the week. Activities may include walking, swimming, or biking. Work with your health care provider or dietitian to adjust your eating plan to your individual calorie needs. What foods should I eat? Fruits All fresh, dried, or frozen fruit. Canned fruit in natural juice (without added sugar). Vegetables Fresh or frozen vegetables (raw, steamed, roasted, or grilled). Low-sodium or reduced-sodium tomatoand vegetable juice. Low-sodium or reduced-sodium tomato sauce and tomato paste. Low-sodium or reduced-sodium canned vegetables. Grains Whole-grain or whole-wheat bread. Whole-grain or whole-wheat pasta. Brown rice. Oatmeal. Quinoa. Bulgur. Whole-grain and low-sodium cereals. Melany bread. Low- fat, low-sodium crackers. Whole-wheat flour tortillas. Meats and other proteins Skinless chicken or turkey. Ground chicken or turkey. Pork with fat trimmed off. Fish and seafood. Egg whites. Dried beans, peas, or lentils. Unsalted nuts, nut butters, and seeds. Unsalted canned beans. Lean cuts of beef with fat trimmed off. Low-sodium, lean precooked or cured meat, such as sausages or meat loaves. Dairy Low-fat (1%) or fat-free (skim) milk. Reduced-fat, low-fat, or fat-free cheeses. Nonfat, low-sodiumricotta or cottage cheese. Low-fat or nonfat yogurt. Low-fat, low-sodium cheese. Fats and oils Soft margarine without trans fats. Vegetable oil. Reduced-fat, low-fat, or light mayonnaise and salad dressings (reduced-sodium). Canola, safflower, olive, avocado, soybean, and sunflower oils. Avocado. Seasonings and condiments Herbs. Spices. Seasoning mixes without salt. Other foods Unsalted popcorn and pretzels. Fat-free sweets. The items listed above may not be a complete list of foods and beverages you can eat. Contact a dietitian for more information. What foods should I avoid? Fruits Canned fruit in a light or heavy syrup. Fried fruit. Fruit in cream or butter sauce. Vegetables Creamed or fried vegetables. Vegetables in a cheese sauce. Regular canned vegetables (not low-sodium or reduced-sodium). Regular canned tomato sauce and paste (not low-sodium or reduced-sodium). Regular tomato and vegetable juice (not low-sodium or reduced-sodium). Pickles. Olives. Grains Baked goods made with fat, such as croissants, muffins, or some breads. Dry pasta or rice meal packs. Meats and other proteins Fatty cuts of meat. Ribs. Fried meat. [place]. Bologna, salami, and other precooked or cured meats, such as sausages or meat loaves. Fat from the back of a pig (fatback). Bratwurst. Salted nuts and seeds. Canned beans with added salt. Canned or smoked fish. Whole eggs or egg yolks. Chicken or turkey with skin. Dairy Whole or 2% milk, cream, and mjnf-tbv-ilbr. Whole or full-fat cream cheese. Whole-fat or sweetened yogurt. Full-fat cheese. Nondairy creamers. Whipped toppings. Processed cheese and cheese spreads. Fats and oils Butter. Stick margarine. Lard. Shortening. Ghee. [place] fat. Tropical oils, such as coconut, palm kernel, or palm oil. Seasonings and condiments Onion salt, garlic salt, seasoned salt, table salt, and sea salt. Worcestershire sauce. Tartar sauce. Barbecue sauce. Teriyaki sauce. Soy sauce, including reduced-sodium. Steak sauce. Canned and packaged gravies. Fish sauce. Oyster sauce. Cocktail sauce. Store-bought horseradish. Ketchup. Mustard. Meat flavorings and tenderizers. Bouillon cubes. Hot sauces. Pre-made or packaged marinades. Pre-made or packaged taco seasonings. Relishes. Regular salad dressings. Other foods Salted popcorn and pretzels. The items listed above may not be a complete list of foods and beverages you should avoid. Contact a dietitian for more information. Where to find more information National Heart, Lung, and [facility] [place]: www.nhlbi.nih.gov [place] [employer]: www.heart.org Academy of Nutrition and Dietetics: www.eatright.org National Kidney Foundation: www.kidney.org Summary The DASH eating plan is a healthy eating plan that has been shown to reduce high blood pressure (hypertension). It may also reduce your risk for type 2 diabetes, heart disease, and stroke. When on the DASH eating plan, aim to eat more fresh fruits and vegetables, whole grains, lean proteins, low-fat dairy, and heart-healthy fats. With the DASH eating plan, you should limit salt (sodium) intake to 2,300 mg a day. If you have hypertension, you may need to reduce your sodium intake to 1,500 mg a day. Work with your health care provider or dietitian to adjust your eating plan to your individual calorie needs. This information is not intended to replace advice given to you by your health care provider. Make sure you discuss any questions you have with your health care provider. Document Revised: 02/12/2020 Document Reviewed: 02/12/2020 [employer] Patient Education 2022 [email or web address]. 07/17/2023 09:40:52 Health Risks of Smoking Health Risks of Smoking Smoking tobacco is very bad for your health. Tobacco smoke contains many toxic chemicals that can damage every part of your body. Secondhand smoke can be harmful to those around you. Tobacco or nicotine use can cause many long-term (chronic) diseases. Smoking is difficult to quit because a chemical in tobacco, called nicotine, causes addiction or dependence. When you smoke and inhale, nicotine is absorbed quickly into your bloodstream through yourlungs. Both inhaled and non-inhaled nicotine may be addictive. How can quitting affect me? There are health benefits of quitting smoking. Some benefits happen right away and others take time. Benefits may include: Blood flow, blood pressure, heart rate, and lung capacity may begin to improve. However, any lung damage that has already occurred cannot be repaired. Respiratory symptoms from smoking, such as nasal congestion and cough, may improve over time. Your risk of heart disease, stroke, and cancer is reduced. The overall quality of your health may improve. You may save money, as you will not spend money on tobacco products and may spend less money on smoking-related health issues. What can increase my risk? Smoking harms nearly every organ in the body. People who smoke tobacco have a shorter life expectancy and an increased risk of many serious medical problems. These include: More respiratory infections, such as colds and pneumonia. Cancer. Heart disease. Stroke. Chronic respiratory diseases. Delayed wound healing and increased risk of complications during surgery. Problems with reproduction, , and childbirth, such as infertility, early (premature) births, stillbirths, and defects. Secondhand smoke exposure to children increases the risk of: Sudden syndrome (SIDS). Infections in the nose, throat, or airways (respiratory infections). Chronic respiratory symptoms. What actions can I take to quit? Smoking is an addiction that affects both your body and your mind, and long-time habits can be hardto change. Your health care provider can recommend: Nicotine replacement products, such as patches, gum, and nasal sprays. Use these products only as directed. Do not replace cigarette smoking with electronic cigarettes, which are commonly called e-cigarettes. The safety of e-cigarettes is not known, and some may contain harmful chemicals. Programs and community resources, which may include group support, education, or talk therapy. Prescription medicines to help reduce cravings. A combination of two or more quit methods, which may increase the success of quitting. Where to find support Follow the recommendations from your health care provider about support groups and other assistance. You can also visit: [place] Department of Health and Human Services: www.smokefree.gov [place] [employer]: www.freedomfromsmoking.org [place] [employer]: www.heart.org Where to find more information Centers for Disease Control and Prevention: www.cdc.gov World Health Organization: www.who.int Summary Smoking tobacco is very bad for your health. Tobacco smoke contains many toxic chemicals that can damage every part of the body. Smoking is difficult to quit because a chemical in tobacco, called nicotine, causes addiction or dependence. There are immediate and long-term health benefits of quitting smoking. A combination of two or more quit methods may increase the success of quitting. This information is not intended to replace advice given to you by your health care provider. Make sure you discuss any questions you have with your health care provider. Document Revised: 03/13/2022 Document Reviewed: 03/13/2022 [employer] Patient Education 2022 [email or web address]. 07/17/2023 09:40:49 Chronic Back Pain Chronic Back Pain When back pain lasts longer than 3 months, it is called chronic back pain. The cause of your back pain may not be known. Some common causes include: Wear and tear (degenerative disease) of the bones, ligaments, or disks in your back. Inflammation and stiffness in your back (arthritis). People who have chronic back pain often go through certain periods in which the pain is more intense (flare-ups). Many people can learn to manage the pain with home care. Follow these instructions at home: Pay attention to any changes in your symptoms. Take these actions to help with your pain: Managing pain and stiffness If directed, apply ice to the painful area. Your health care provider may recommend applying ice during the first 24 48 hours after a flare-up begins. To do this: ?Put ice in a plastic bag. ?Place a towel between your skin and the bag. ?Leave the ice on for 20 minutes, 2 3 times per day. If directed, apply heat to the affected area as often as told by your health care provider. Use theheat source that your health care provider recommends, such as a moist heat pack or a heating pad. ?Place a towel between your skin and the heat source. ?Leave the heat on for 20 30 minutes. ?Remove the heat if your skin turns bright red. This is especially important if you are unable to feel pain, heat, or cold. You may have a greater risk of getting burned. Try soaking in a warm tub. Activity Avoid bending and other activities that make the problem worse. Maintain a proper position when standing or sitting: ?When standing, keep your upper back and neck straight, with your shoulders pulled back. Avoid slouching. ?When sitting, keep your back straight and relax your shoulders. Do not round your shoulders or pull them backward. Do not sit or intelligence consultant one place for long periods of time. Take brief periods of rest throughout the day. This will reduce your pain. Resting in a lying or standing position is usually better than sitting to rest. When you are resting for longer periods, mix in some mild activity or stretching between periods ofrest. This will help to prevent stiffness and pain. Get regular exercise. Ask your health care provider what activities are safe for you. Do not lift anything that is heavier than 10 lb (4.5 kg), or the limit that you are told, until your health care provider says that it is safe. Always use proper lifting technique, which includes: ?Bending your knees. ?Keeping the load close to your body. ?Avoiding twisting. Sleep on a firm mattress in a comfortable position. Try lying on your side with your knees slightlybent. If you lie on your back, put a pillow under your knees. Medicines Treatment may include medicines for pain and inflammation taken by mouth or applied to the skin, prescription pain medicine, or muscle relaxants. Take mtzy-fwt-quzvjpl and prescription medicines onlyas told by your health care provider. Ask your health care provider if the medicine prescribed to you: ?Requires you to avoid driving or using machinery. ?Can cause constipation. You may need to take these actions to prevent or treat constipation: ?Drink enough fluid to keep your urine pale yellow. ?Take zrux-set-sqkhtrm or prescription medicines. ?Eat foods that are high in fiber, such as beans, whole grains, and fresh fruits and vegetables. ?Limit foods that are high in fat and processed sugars, such as fried or sweet foods. General instructions Do not use any products that contain nicotine or tobacco, such as cigarettes, e- cigarettes, and chewing tobacco. If you need help quitting, ask your health care provider. Keep all follow-up visits as told by your health care provider. This is important. Contact a health care provider if: You have pain that is not relieved with rest or medicine. Your pain gets worse, or you have new pain. You have a high fever. You have rapid weight loss. You have trouble doing your normal activities. Get help right away if: You have weakness or numbness in one or both of your legs or feet. You have trouble controlling your bladder or your bowels. You have severe back pain and have any of the following: ?Nausea or vomiting. ?Pain in your abdomen. ?Shortness of breath or you faint. Summary Chronic back pain is back pain that lasts longer than 3 months. When a flare-up begins, apply ice to the painful area for the first 24 48 hours. Apply a moist heat pad or use a heating pad on the painful area as directed by your health care provider. When you are resting for longer periods, mix in some mild activity or stretching between periods ofrest. This will help to prevent stiffness and pain. This information is not intended to replace advice given to you by your health care provider. Make sure you discuss any questions you have with your health care provider. Document Revised: 04/20/2020 Document Reviewed: 04/20/2020 [employer] Patient Education 2022 [email or web address]. 07/17/2023 09:40:47 Hepatitis C Hepatitis C Hepatitis C is a liver infection that is caused by the hepatitis C virus (HCV). The virus infects and causes inflammation in the liver. Hepatitis C can lead to: Loss of liver function (liver failure). Scarring of the liver (cirrhosis). Liver cancer. People with hepatitis C often do not know for months or years that they have this condition. This is because they have no symptoms or may have only mild symptoms. What are the causes? This condition is caused by HCV. The virus can spread from person to person (is contagious). It canspread through: Contact with an infected person's blood, semen, or vaginal fluids. Childbirth. A woman who has hepatitis C can pass it to her baby during . Having received donated blood (blood transfusion) or an organ transplant that was done in the [place] before 1991. What increases the risk? The following factors may make you more likely to develop this condition: Having contact with needles or syringes that have HCV on them (are contaminated). This may happen while injecting drugs, getting a tattoo or body piercing, or receiving acupuncture. Acupuncture is a treatment that inserts thin needles through your skin. Contact also may happen when you: ?Have sex with someone who is infected. The virus can spread through vaginal, oral, or anal sex. ?Receive treatment to filter your blood (kidney dialysis). ?Have a job that involves contact with blood or body fluids, such as in health care. Having HIV (human immunodeficiency virus) or AIDS (acquired immunodeficiency syndrome). What are the signs or symptoms? Symptoms of this condition include: Tiredness (fatigue). Loss of appetite. Nausea or vomiting. Pain in your abdomen. Dark yellow urine. Yellowing of your skin or the white parts of your eyes (jaundice). Itchy skin. Light-colored or noguera stool. Joint pain. Bleeding and bruising that happen often. Fluid buildup in your stomach (ascites). Often, hepatitis C causes no symptoms. How is this diagnosed? This condition is diagnosed with: Blood tests. Other tests that show how well your liver is working. These tests may include: ?Magnetic resonance elastography (MRE). This imaging test uses MRI and sound waves to measure liverstiffness. ?Transient elastography. This imaging test uses ultrasound to measure liver stiffness. ?Liver biopsy. In this test, a tissue sample is taken from your liver and looked at under a microscope. How is this treated? Treatment may depend on how severe your condition is, how long it has lasted, and whether you have liver damage. Treatment may include: Taking antiviral medicines and other medicines. Having follow-up treatments every 6 12 months for infections or other liver problems. Having a liver transplant. Follow these instructions at home: Medicines Take xjpw-weu-wjnwsdx and prescription medicines only as told by your health care provider. If you were prescribed an antiviral medicine, take it as told by your health care provider. Do not stop using the antiviral even if you start to feel better. Do not take any new medicines, including vcvu-weh-zwmgdma medicines or supplements, unless your health care provider approves. Activity Rest as needed. Do not have sex unless your health care provider approves. Avoid swimming or using hot tubs if you have open sores or wounds. Return to your normal activities as told by your health care provider. Ask your health care provider what activities are safe for you. Ask your health care provider when you may return to school or work. Eating and drinking Eat a balanced diet with plenty of fruits and vegetables, whole grains, and lean meats or non-meat proteins, such as beans or tofu. Drink enough fluid to keep your urine pale yellow. Do not drink alcohol. General instructions Do not share toothbrushes, nail clippers, or razors. Wash your hands often with soap and water for at least 20 seconds. If soap and water are not available, use alcohol-based hand hip hop artist. Cover any cuts or open sores on your skin to prevent spreading HCV. Keep all follow-up visits. This is important. You may need follow-up visits every 6 12 months. How is this prevented? There is no vaccine for hepatitis C. You can lessen your risk of coming into contact with HCV by making sure you: Wash your hands often with soap and water for at least 20 seconds. Do not share needles or syringes. Use a condom every time you have vaginal, oral, or anal sex. Latex condoms offer the best protection. Avoid handling blood or other body fluids without gloves or other protection. Avoid getting tattoos or body piercings in shops that are not clean. Where to find more information Centers for Disease Control and Prevention: www.cdc.gov/hepatitis World Health Organization: www.who.int Contact a health care provider if you: Have a fever or chills. Have pain or swelling in your abdomen. Pass dark urine. Pass light-colored or noguera stool. Have joint pain. Get help right away if you: Have more fatigue. Lose your appetite. Cannot eat or drink without vomiting. Develop jaundice, or your jaundice gets worse. Bruise or bleed easily. Summary Hepatitis C is a liver infection that is caused by the hepatitis C virus (HCV). This infection can lead to a loss of liver function (liver failure), scarring of the liver (cirrhosis), or liver cancer. HCV can spread from person to person (is contagious). Do not take any medicines, including nuzk-mka-ztforeh medicines or supplements, unless your health care provider approves. This information is not intended to replace advice given to you by your health care provider. Make sure you discuss any questions you have with your health care provider. Document Revised: 01/26/2021 Document Reviewed: 01/26/2021 [employer] Patient Education 2022 [email or web address]. 07/17/2023 09:40:45 Mixed Bipolar Disorder Mixed Bipolar Disorder Mixed bipolar disorder is a mental health disorder in which a person has episodes of emotional highs (bel), lows (depression), or both of these feelings at the same time. People with this disorder have very big mood changes (mood swings) that happen quickly on a regular basis. These episodes may be severe enough to cause problems with relationships, school, or work. In some cases, they can cause the person to be unsafe, and the person may need to stay in a hospital. What are the causes? The cause of this condition is not known. What increases the risk? The following factors may make you more likely to develop this condition: Having a family history of the disorder. Misusing substances such as alcohol or drugs. Having an anxiety disorder. Having another illness, such as heart disease or thyroid disease. What are the signs or symptoms? Symptoms of this condition include having episodes of bel or depression. Sometimes, symptoms of both happen at the same time. For instance, you may feel sad and full of energy at the same time. Youmay have mood swings almost every day. Symptoms of bel may include: Very high self-esteem or self-confidence. Being unusually talkative, or feeling a need to keep talking. Speech may be very fast. It may seem like you cannot stop talking. Racing thoughts or constant talking, with quick shifts between topics that may or may not be related (flight of ideas). Being less able or more able to focus. Increased purposeful activity, such as work, study, or social activity. Increased nonproductive activity. This could be pacing, squirming and fidgeting, or finger and toe tapping. Impulsive behavior and poor judgment. These may lead to high-risk activities, such as having unprotected sex or spending a lot of money. Symptoms of depression may include: Feeling sad, hopeless, or helpless. Lack of feeling or caring about anything. Not being able to enjoy things that you used to enjoy. Trouble concentrating or remembering. Trouble making decisions. Thoughts of , or wanting to harm yourself. How is this diagnosed? This condition may be diagnosed based on: Your symptoms, your medical history, and a mental health (psychiatric) assessment. Your health careprovider will ask about your emotional episodes. A physical exam. This is done to rule out any health problems that may be causing symptoms. Your health care provider will also ask about your alcohol and drug use. How is this treated? Bipolar disorder is a long-term (chronic) illness. It is best controlled with treatment that is given on an ongoing basis, rather than only when symptoms are present. A combination of treatments is best. Treatment may include: Medicines. These can be prescribed by a provider who specializes in treating mental health disorders (psychiatrist). ?Medicines called mood stabilizers, antipsychotics, or antidepressants may be prescribed. ?If symptoms occur while one type of medicine is taken, other medicines may be added. Talk therapy (psychotherapy). Some forms of talk therapy, such as cognitive behavioral therapy (CBT), can provide support, education, and guidance. Methods of managing your condition, such as journaling or relaxation exercises. These may include: ?Yoga. ?Meditation. ?Deep breathing. Lifestyle changes, such as: ?Avoiding alcohol and drug use. ?Exercising regularly. ?Getting plenty of sleep. ?Making healthy eating choices. In severe cases, if other treatments do not work, a procedure called electroconvulsive therapy (ECT) may be used. In ECT, short electrical pulses are sent to the brain through the scalp. This is doneto change the brain chemicals that send messages between brain cells (neurotransmitters). Follow these instructions at home: Activity Return to your normal activities as told by your health care provider. Find activities that you enjoy, and make time to do them. Get regular exercise. Lifestyle Follow a set schedule for eating and sleeping. Eat a balanced diet that includes fresh fruits and vegetables, whole grains, low-fat dairy products, and lean meat. Get 7 8 or more hours of sleep each night. Avoid using products that contain nicotine or tobacco. If you need help quitting, ask your health care provider. Do not drink alcohol or use drugs. General instructions Take htys-zbd-wuafkzw and prescription medicines only as told by your health care provider. Think about joining a support group. Your health care provider may be able to recommend one. Talk with your family and loved ones about your treatment goals and about how they can help. Keep all follow-up visits. This is important. Where to find more information National [place] on Mental Illness: kati.org National [place] of Mental Health: nimh.nih.gov Contact a health care provider if: Your symptoms get worse. You have side effects from your medicine. You have trouble sleeping. You have trouble doing daily activities. You feel unsafe in your surroundings. You are misusing substances. Get help right away if: You think about hurting yourself or you try to hurt yourself. You think about suicide. If you ever feel like you may hurt yourself or others, or have thoughts about taking your own life,get help right away. Go to your nearest emergency department or: Call your local emergency services (982 in the [place] Call a suicide crisis helpline, such as the National Suicide Prevention Lifeline at or 289 in the [place] This is open 24 hours a day. Text the Crisis Text Line at 479385 (in the [place] Summary Mixed bipolar disorder is a mental health disorder in which a person has episodes of emotional highs (bel), lows (depression), or both of these feelings at the same time. Bipolar disorder is a long-term illness. It is best controlled with treatment that is given on an ongoing basis, rather than only when symptoms are present. The best treatment approach is a combination of medicine, talk therapy, and methods of managing thecondition. This information is not intended to replace advice given to you by your health care provider. Make sure you discuss any questions you have with your health care provider. Document Revised: 10/05/2021 Document Reviewed: 08/31/2021 [employer] Patient Education 2022 [employer] Follow Up Care 05/07/2023 10:08:54 With:Cheyanne Rincon FAM, MED Address: [address] [place], [place] [address] [address] [address]- When:Within 1 Month(s) Comments:f/u labs, HTN, [facility] 04-22-2024 Evaluation + Plan noteExtracted from: Title:Pain Managment H&P new patient Author:Dory Biswas PA-C Date:07/15/23 Impression and Plan Patient is a 48-year-old female with a past medical history significant for lumbar degenerative disease and lumbar neuritis. Per patient she is scheduled for a spinal cord stimulator trial by Dr. Adams on 08/26/2023. Unfortunate, she still has lower back pain with right radiating leg pain that she has not been able to get calm down. She has gone to the ER a few times. They recommended her here for further pain control. We reviewed her MRI. We discussed different options. We discussed the medication she has trialed. At this time, I would not recommend chronic opiates. The reasons as to why were discussed. Patient voiced understanding. She does have a history of pain management. I would like to try to get these records. I would also like to get her records from her surgeon. We discussed trialing Lyrica. Potential side effects discussed. How to start the medication was discussed. OARRS was reviewed. Prescription sent to the pharmacy. Follow-up in 4 to 6 weeks. Call the clinic sooner if necessary. CESAR score: 64% Future Appointments Appointment Date:07/17/2023 07:40:00 AM Scheduled Provider:Cheyanne Rincon Location:[facility] Appointment Type:FM New Patient - Adult Appointment Date:08/14/2023 03:15:00 PM Scheduled Provider:Domenic Sher DO Location:[facility] Appointment Type:Pain Management - Follow Up (FT) [facility]04-21-2024 Hospital Discharge instructions Patient Education 07/14/2023 12:21:30 Chronic Back Pain Chronic Back Pain When back pain lasts longer than 3 months, it is called chronic back pain. The cause of your back pain may not be known. Some common causes include: Wear and tear (degenerative disease) of the bones, ligaments, or disks in your back. Inflammation and stiffness in your back (arthritis). People who have chronic back pain often go through certain periods in which the pain is more intense (flare-ups). Many people can learn to manage the pain with home care. Follow these instructions at home: Pay attention to any changes in your symptoms. Take these actions to help with your pain: Managing pain and stiffness If directed, apply ice to the painful area. Your health care provider may recommend applying ice during the first 24 48 hours after a flare-up begins. To do this: ?Put ice in a plastic bag. ?Place a towel between your skin and the bag. ?Leave the ice on for 20 minutes, 2 3 times per day. If directed, apply heat to the affected area as often as told by your health care provider. Use theheat source that your health care provider recommends, such as a moist heat pack or a heating pad. ?Place a towel between your skin and the heat source. ?Leave the heat on for 20 30 minutes. ?Remove the heat if your skin turns bright red. This is especially important if you are unable to feel pain, heat, or cold. You may have a greater risk of getting burned. Try soaking in a warm tub. Activity Avoid bending and other activities that make the problem worse. Maintain a proper position when standing or sitting: ?When standing, keep your upper back and neck straight, with your shoulders pulled back. Avoid slouching. ?When sitting, keep your back straight and relax your shoulders. Do not round your shoulders or pull them backward. Do not sit or intelligence consultant one place for long periods of time. Take brief periods of rest throughout the day. This will reduce your pain. Resting in a lying or standing position is usually better than sitting to rest. When you are resting for longer periods, mix in some mild activity or stretching between periods ofrest. This will help to prevent stiffness and pain. Get regular exercise. Ask your health care provider what activities are safe for you. Do not lift anything that is heavier than 10 lb (4.5 kg), or the limit that you are told, until your health care provider says that it is safe. Always use proper lifting technique, which includes: ?Bending your knees. ?Keeping the load close to your body. ?Avoiding twisting. Sleep on a firm mattress in a comfortable position. Try lying on your side with your knees slightlybent. If you lie on your back, put a pillow under your knees. Medicines Treatment may include medicines for pain and inflammation taken by mouth or applied to the skin, prescription pain medicine, or muscle relaxants. Take shoh-kxd-kewyyvc and prescription medicines onlyas told by your health care provider. Ask your health care provider if the medicine prescribed to you: ?Requires you to avoid driving or using machinery. ?Can cause constipation. You may need to take these actions to prevent or treat constipation: ?Drink enough fluid to keep your urine pale yellow. ?Take aonc-xeq-vklybfa or prescription medicines. ?Eat foods that are high in fiber, such as beans, whole grains, and fresh fruits and vegetables. ?Limit foods that are high in fat and processed sugars, such as fried or sweet foods. General instructions Do not use any products that contain nicotine or tobacco, such as cigarettes, e- cigarettes, and chewing tobacco. If you need help quitting, ask your health care provider. Keep all follow-up visits as told by your health care provider. This is important. Contact a health care provider if: You have pain that is not relieved with rest or medicine. Your pain gets worse, or you have new pain. You have a high fever. You have rapid weight loss. You have trouble doing your normal activities. Get help right away if: You have weakness or numbness in one or both of your legs or feet. You have trouble controlling your bladder or your bowels. You have severe back pain and have any of the following: ?Nausea or vomiting. ?Pain in your abdomen. ?Shortness of breath or you faint. Summary Chronic back pain is back pain that lasts longer than 3 months. When a flare-up begins, apply ice to the painful area for the first 24 48 hours. Apply a moist heat pad or use a heating pad on the painful area as directed by your health care provider. When you are resting for longer periods, mix in some mild activity or stretching between periods ofrest. This will help to prevent stiffness and pain. This information is not intended to replace advice given to you by your health care provider. Make sure you discuss any questions you have with your health care provider. Document Revised: 04/20/2020 Document Reviewed: 04/20/2020 [employer] Patient Education 2022 [email or web address]. Follow Up Care 07/14/2023 11:37:07 With:Follow-up with pain management tomorrow as scheduled Address:Unknown When: Unknown With:Pain Clinic: [facility] [phone] Address:Unknown When:07/15/2023 12:02:43 With:Cheyanne Rosas Address: [address], [facility] A [address] [address]- Business (1) When:Within 3 Day(s) [facility]04-21-2024 Evaluation + Plan noteExtracted from: Title:ED Note Author:Angelic Reece PA-C e:07/14/23 1. Exacerbation of chronic b ack pain (M54.9: Dorsalgia, unspecified) Other chronic pain (G89.29: Other chronic pain) Orders: ketorolac, 30 mg = 1 mL, Injection, IntraMuscular, Once, Stop date 07/14/23 12:01:00 EDT, STAT, Start date 07/14/23 12:01:00 EDT, 07/14/23 12:01:00 EDT lidocaine topical, 1 patch(es), Patch, TransDermal, Once, Stop date 07/14/23 12:02:00 EDT, STAT, Start date 07/14/23 12:02:00 EDT orphenadrine, 60 mg = 2 mL, Injection, IntraMuscular, Once, Stop date 07/14/23 12:01:00 EDT, STAT, Start date 07/14/23 12:01:00 EDT, 07/14/23 12:01:00 EDT 48 year old female presents to the ER with complaint of exacerbation of chronic low back pain. In the ER patient is afebrile, vital signs are stable, no acute distress. Neurologically intact, no alarm signs. Will treat with IM Toradol and orphenadrine. Will also apply Lidoderm patch. Patient does have a concerning OOARS score. Will avoid narcotics at this time. Patient is requesting oxycodone, discussed that this was not the appropriate management of chronic back pain. Patient instructed to follow with her pain management appointment tomorrow as scheduled and is to return to the ER with any new or worsening symptoms. Patient voices understanding and is agreeable to plan Future Appointments Appointment Date:07/15/2023 01:45:00 PM Scheduled Provider:Dory Shepherd PA-C Location:[facility] Appointment Type:Pain Management - New (FT) Appointment Date:07/17/2023 07:40:00 AM Scheduled Provider:Cheyanne Rincon Location:[facility] Appointment Type:FM New Patient - Adult [facility]04-18-2024 Evaluation + Plan noteExtracted from: Title:ED Note Author:Annette Watkins, Balbina Celis te:07/11/23 1. Chronic back pain (M54.9: Dorsalgia, unspecified) Other chronic pain (G89.29: Other chronic pain) Orders: acetaminophen-oxycodone, 1 tab(s), Tab, Oral, Once, Stop date 07/11/23 9:47:00 EDT, STAT, Start date 07/11/23 9:47:00 EDT ketorolac, 60 mg = 2 mL, Injection, IntraMuscular, Once, Stop date 07/11/23 9:47:00 EDT, STAT, Start date 07/11/23 9:47:00 EDT, 07/11/23 9:47:00 EDT orphenadrine, 60 mg = 2 mL, Injection, IntraMuscular, Once, Stop date 07/11/23 9:47:00 EDT, STAT, Start date 07/11/23 9:47:00 EDT, 07/11/23 9:47:00 EDT Future Appointments Appointment Date:07/15/2023 01:45:00 PM Scheduled Provider:Dory Shepherd PA-C [facility] Type:Pain Management - New (FT) Appointment Date:07/17/2023 07:40:00 AM Scheduled Provider:Cheyanne Rincon Location:[facility] Appointment Type:FM New Patient - Adult [facility]04-18-2024 Hospital Discharge instructions Patient Education 07/11/2023 10:06:49 Chronic Back Pain Chronic Back Pain When back pain lasts longer than 3 months, it is called chronic back pain. The cause of your back pain may not be known. Some common causes include: Wear and tear (degenerative disease) of the bones, ligaments, or disks in your back. Inflammation and stiffness in your back (arthritis). People who have chronic back pain often go through certain periods in which the pain is more intense (flare-ups). Many people can learn to manage the pain with home care. Follow these instructions at home: Pay attention to any changes in your symptoms. Take these actions to help with your pain: Managing pain and stiffness If directed, apply ice to the painful area. Your health care provider may recommend applying ice during the first 24 48 hours after a flare-up begins. To do this: ?Put ice in a plastic bag. ?Place a towel between your skin and the bag. ?Leave the ice on for 20 minutes, 2 3 times per day. If directed, apply heat to the affected area as often as told by your health care provider. Use theheat source that your health care provider recommends, such as a moist heat pack or a heating pad. ?Place a towel between your skin and the heat source. ?Leave the heat on for 20 30 minutes. ?Remove the heat if your skin turns bright red. This is especially important if you are unable to feel pain, heat, or cold. You may have a greater risk of getting burned. Try soaking in a warm tub. Activity Avoid bending and other activities that make the problem worse. Maintain a proper position when standing or sitting: ?When standing, keep your upper back and neck straight, with your shoulders pulled back. Avoid slouching. ?When sitting, keep your back straight and relax your shoulders. Do not round your shoulders or pull them backward. Do not sit or intelligence consultant one place for long periods of time. Take brief periods of rest throughout the day. This will reduce your pain. Resting in a lying or standing position is usually better than sitting to rest. When you are resting for longer periods, mix in some mild activity or stretching between periods ofrest. This will help to prevent stiffness and pain. Get regular exercise. Ask your health care provider what activities are safe for you. Do not lift anything that is heavier than 10 lb (4.5 kg), or the limit that you are told, until your health care provider says that it is safe. Always use proper lifting technique, which includes: ?Bending your knees. ?Keeping the load close to your body. ?Avoiding twisting. Sleep on a firm mattress in a comfortable position. Try lying on your side with your knees slightlybent. If you lie on your back, put a pillow under your knees. Medicines Treatment may include medicines for pain and inflammation taken by mouth or applied to the skin, prescription pain medicine, or muscle relaxants. Take knro-nws-ahuscda and prescription medicines onlyas told by your health care provider. Ask your health care provider if the medicine prescribed to you: ?Requires you to avoid driving or using machinery. ?Can cause constipation. You may need to take these actions to prevent or treat constipation: ?Drink enough fluid to keep your urine pale yellow. ?Take qkiw-ouz-pmyoqdc or prescription medicines. ?Eat foods that are high in fiber, such as beans, whole grains, and fresh fruits and vegetables. ?Limit foods that are high in fat and processed sugars, such as fried or sweet foods. General instructions Do not use any products that contain nicotine or tobacco, such as cigarettes, e- cigarettes, and chewing tobacco. If you need help quitting, ask your health care provider. Keep all follow-up visits as told by your health care provider. This is important. Contact a health care provider if: You have pain that is not relieved with rest or medicine. Your pain gets worse, or you have new pain. You have a high fever. You have rapid weight loss. You have trouble doing your normal activities. Get help right away if: You have weakness or numbness in one or both of your legs or feet. You have trouble controlling your bladder or your bowels. You have severe back pain and have any of the following: ?Nausea or vomiting. ?Pain in your abdomen. ?Shortness of breath or you faint. Summary Chronic back pain is back pain that lasts longer than 3 months. When a flare-up begins, apply ice to the painful area for the first 24 48 hours. Apply a moist heat pad or use a heating pad on the painful area as directed by your health care provider. When you are resting for longer periods, mix in some mild activity or stretching between periods ofrest. This will help to prevent stiffness and pain. This information is not intended to replace advice given to you by your health care provider. Make sure you discuss any questions you have with your health care provider. Document Revised: 04/20/2020 Document Reviewed: 04/20/2020 [employer] Patient Education 2022 [email or web address]. 07/11/2023 10:06:49 Managing Chronic Back Pain Managing Chronic Back Pain Chronic back pain is back pain that lasts for 12 weeks or longer. It often affects the lower back. Back pain may feel like a muscle ache or a sharp, stabbing pain. It can be mild, moderate, or severe. If you have been diagnosed with chronic back pain, there are things you can do to manage your symptoms. You may have to try different things to see what works best for you. Your health care provider may also give you specific instructions. How to manage lifestyle changes Treating chronic back pain often starts with rest and pain relief, followed by exercises to restoremovement and strength to your back (physical therapy). You may need surgery if other treatments do not help, or if your pain is caused by a condition or an injury. Follow your treatment plan as told by your health care provider. This may include: Relaxation techniques. Talk therapy or counseling with a mental health specialist. A form of talk therapy called cognitivebehavioral therapy (CBT) can be especially helpful. This therapy helps you set goals and follow up on the changes that you make. Acupuncture or massage therapy. Local electrical stimulation. Injections. These deliver numbing or pain-relieving medicines into your spine or the area of pain. How to recognize changes in your chronic back pain Your condition may improve with treatment. However, back pain may not go away or may get worse overtime. Watch your symptoms carefully and let your health care provider know if your symptoms get worse or do not improve. Your back pain may be getting worse if you have: Pain that begins to cause problems with posture. Pain that gets worse when you are sitting, standing, walking, bending, or lifting. Pain that affects you while you are active, or at rest, or both. Pain that eventually makes it hard to move around (limits mobility). Pain that occurs with fever, weight loss, or difficulty urinating. Pain that causes numbness and tingling. How to use body mechanics and posture to help with pain Healthy body mechanics and good posture can help to relieve stress on your back. Body mechanics refers to the movements and positions of your body during your daily activities. Posture is part of body mechanics. Good posture means: Your spine is in its natural S-curve, or neutral, position. Your shoulders are pulled back slightly. Your head is not tipped forward. Follow these guidelines to improve your posture and body mechanics in your everyday activities. Standing When standing, keep your spine neutral and your feet about hip-width apart. Keep your knees slightly bent. Your ears, shoulders, and hips should line up. When you do a task in which you intelligence consultant one place for a long time, place one foot on a stable object that is 2 4 inches (5 10 cm) high, such as a footstool. This helps keep your spine neutral. Sitting When sitting, keep your spine neutral and your feet flat on the floor. Use a footrest, if necessary, and keep your thighs parallel to the floor. Avoid rounding your shoulders, and avoid tilting your head forward. When working at a desk or a computer, keep your desk at a height where your hands are slightly lower than your elbows. Slide your chair under your desk so you are close enough to maintain good posture. When working at a computer, place your monitor at a height where you are looking straight ahead andyou do not have to tilt your head forward or downward to view the screen. Lifting Keep your feet at least shoulder-width apart and tighten the muscles of your abdomen. Bend your knees and hips and keep your spine neutral. Be sure to lift using the strength of your legs, not your back. Do not lock your knees straight out. Always ask for help to lift heavy or awkward objects. Resting When lying down and resting, avoid positions that are most painful. If you have pain with activities such as sitting, bending, stooping, or squatting, lie in a position in which your body does not bend very much. For example, avoid curling up on your side with your arms and knees near your chest ( position). If you have pain with activities such as standing for a long time or reaching with your arms, lie with your spine in a neutral position and bend your knees slightly. Try: ?Lying on your side with a pillow between your knees. ?Lying on your back with a pillow under your knees. Follow these instructions at home: Medicines Treatment may include ryaa-yyu-tqoifku or prescription medicines for pain and inflammation that aretaken by mouth or applied to the skin. Another treatment may include muscle relaxants. Take rdtm-fqv-opnsxny and prescription medicines only as told by your health care provider. Ask your health care provider if the medicine prescribed to you: ?Requires you to avoid driving or using machinery. ?Can cause constipation. You may need to take these actions to prevent or treat constipation: ?Drink enough fluid to keep your urine pale yellow. ?Take ypxa-bfz-tfvakpp or prescription medicines. ?Eat foods that are high in fiber, such as beans, whole grains, and fresh fruits and vegetables. ?Limit foods that are high in fat and processed sugars, such as fried or sweet foods. Lifestyle Do not use any products that contain nicotine or tobacco, such as cigarettes, e- cigarettes, and chewing tobacco. If you need help quitting, ask your health care provider. Eat a healthy diet that includes foods such as vegetables, fruits, fish, and lean meats. Work with your health care provider to achieve or maintain a healthy weight. General instructions Get regular exercise as told. Exercise improves flexibility and strength. If physical therapy was prescribed, do exercises as told by your health care provider. Use ice or heat therapy as told by your health care provider. Keep all follow-up visits as told by your health care provider. This is important. Where can I get support? Consider joining a support group for people managing chronic back pain. Ask your health care provider about support groups in your area. You can also find online and in-person support groups through: The [place] [employer]: theacpa.org Pain Connection Program: painconnection.org Contact a health care provider if: You have pain that is not relieved with rest or medicine. Your pain gets worse, or you have new pain. You have a fever. You have rapid weight loss. You have trouble doing your normal activities. Get help right away if: You have weakness or numbness in one or both of your legs or feet. You have trouble controlling your bladder or your bowels. You have severe back pain and have any of the following: ?Nausea or vomiting. ?Abdominal pain. ?Shortness of breath or you faint. Summary Chronic back pain is often treated with rest, pain relief, and physical therapy. Talk therapy, acupuncture, massage, and local electrical stimulation may help. Follow your treatment plan as told by your health care provider. Joining a support group may help you manage chronic back pain. This information is not intended to replace advice given to you by your health care provider. Make sure you discuss any questions you have with your health care provider. Document Revised: 04/21/2020 Document Reviewed: 12/29/2019 [employer] Patient Education 2022 [email or web address]. Follow Up Care 07/11/2023 09:19:03 With:Cheyanne Rosas Address: [address], [address] [place] [id number]- Business (1) When:07/14/2023 09:59:05 Comments:Make sure to follow-up with your primary doctor and the pain management. Return to the emergency room if your pain gets worse, bowel or bladder incontinence, numbness/tingling in the saddle/groin area, weakness in your legs or any new symptoms. [facility]04-15-2024 History of Present illness Narrative* Declan Leyva, PhD - 07/08/2023 10:00 AM EDT Televideo Informed Consent for psychological evaluation was reviewed with the patient as follows: There are potential benefits and risks of the use of telephone or video- conferencing that differ from in-person sessions. Specifically, the telephone or televideo system we are using may not be HIPPAcompliant and may present limits to patient confidentiality. Confidentiality still applies for telepsychology services, and nobody will record the session without your permission. Understanding and verbal agreement was attested to by the patient. Patient identity was confirmed using 3 sources, including telephone number, email address and date of . The televideo call originated from the patient's house. Non-secure Note: The patient has consented to an unrestricted note. I had the pleasure of seeing Jerad Tracy for a psychological evaluation to help determine the appropriateness of a trial of neurostimulation. As you know, she is a 48 y.o. year old woman with a history of chronic low back and bilateral lower extremity pain. Current pain and psychoactive medications include: Oxycodone, Flexeril, fluoxetine. Pain Status She reports pain in her low back with neuropathic pain in both her legs, right greater than left, that she has been experiencing for over a year. She quantifies her pain as 9/10 in intensity with a very limited range of 9-10/10. Her pain is worse if she stands beyond her 2-hour tolerance, walks more than about a block or sits in a car for too long. As a consequence she avoids activities that tendto intensify her pain. For example, she has learned to pace her activity at work such that she sitsfor 15 minutes out of every hour that she works. She has tried physical therapy which was discontinued after only 2 sessions as a consequence of theintense pain she experienced. She has found water therapy to be helpful and we talked about the importance of water-based exercise. She has no history of spine surgery. None of the strategies she hastried have reduced her pain nor improved her function. 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 She has 4 sons. She reports that she feels safe and well supported at home. Mental Status Exam Orientation: Alert. Oriented x3. Memory: Grossly intact. Attention/Concentration: Normal. Distractible. Appearance: Well-groomed. Neat. Behavior/Attitude: Cooperative. Pleasant. Good eye contact. Motor: Calm. Normal motor activity. Speech: Regular rate and volume. Fluent. No pressure. Mood: My mood is generally good Affect: Congruent to stated mood. Broad. Reactive. Thought process: Goal-directed. Linear. Organized. Thought content: No paranoia, delusion or ideas of reference. No hallucinations in auditory, visualor other sensory modalities. Suicidal ideation: denied. Homicidal ideation: denied. Insight: Fair. Psychological Status She reports that her mood is euthymic and stable. She has been maintained on a regimen of fluoxetine for many years. The dose was increased 4 years ago during a period of grief when she lost both herfather and sister. That grief episode is resolved but she remains on 60 mg of fluoxetine and I encouraged her to contact the prescribing PCP to consider downward titration. She reports no current depr essive symptoms with adequate energy and motivation. She denies anhedonia. Her mood is stable without irritability or mood fragility and she has no history of bel nor of hypomania. She has no history of suicidal or homicidal ideation and no history of substance misuse. She has never required psychiatric hospitalization. She has no history of anxiety, fears, phobias or panic. Sleep tends to be restorative for her. She has experienced a significant 50 pound weight gain over the past year which she relates to the inactivity associated with low back and leg pain. She reportsno problems with memory nor concentration and a brief cognitive screen reveals no gross deficits. Reason and judgment seem fully intact. Behavioral Screening for Neurostimulation 1) Active psychosis: There is no evidence of delusions, hallucinations or somatic preoccupation, and, as such, the validity of the patient's pain complaints is not suspect. 2) Major Affective Disorder: Patients with severe mood disturbance are at risk for responding poorly to treatment. In this case, I do not believe that mood issues preclude either accuracy of pain report nor adequate response to neurostimulation. 3) Suicidal or homicidal ideation: There is no history of either suicidal or homicidal ideation. 4) Substance misuse or addiction: There is no reported history of substance misuse, including alcohol, street drugs and pharmaceuticals. 5) Somatization or somatoform disorder: There is no evidence of preoccupation with physical complaints that are unsupported by or exceed evidence obtained in diagnostic evaluations. 6) Unresolved compensation or litigation: There is no evidence of the presence of significant disincentive to accurately report positive response to interventional treatment. 7) Adequate social support: To be successful, pain treatment and the accompanying rehabilitative efforts require the daily practical and psychological support of family and friends. By patient report, there is adequate social support present. 8) Serious cognitive deficits: Careful mental status exam reveals no evidence of problems with memory, concentration, attention, reason and judgment. 9) Self-efficacy: Adequate self-efficacy expresses itself in the form of active engagement in the behavior change efforts that are the necessary companions to intervention. She expresses willingness and inclination to pair any relief obtained through neurostimulation with their own rehabilitative efforts. 10) Informed consent: She is able to describe the interventional process, including the trial period, pain reduction levels that permit permanent installation, and installation procedures. Understanding is expressed that stimulation is not likely to eliminate pain but rather to reduce it to the point that self-managed strategies, such as behavior change efforts and rehabilitative strategies, are likely to be additionally helpful. Impression: In my opinion, Jerad Tracy is able to provide informed consent and is an acceptable candidate for a trial of neurostimulation from the behavioral perspective. Please fell free to contact me with any questions. Thank you for allowing me to collaborate in the care of your patient. Declan Leyva, Ph.D. Professor, Department of Psychiatry Director, Division of Psychology [facility] (o) [phone] documented in this [facility] Work Phone: [phone] Hospital Discharge instructions Patient Education 07/06/2023 19:51:44 Acute Back Pain, Adult Acute Back Pain, Adult Acute back pain is sudden and usually short-lived. It is often caused by an injury to the muscles and tissues in the back. The injury may result from: A muscle, tendon, or ligament getting overstretched or torn. Ligaments are tissues that connect bones to each other. Lifting something improperly can cause a back strain. Wear and tear (degeneration) of the spinal disks. Spinal disks are circular tissue that provide cushioning between the bones of the spine (vertebrae). Twisting motions, such as while playing sports or doing yard work. A hit to the back. Arthritis. You may have a physical exam, lab tests, and imaging tests to find the cause of your pain. Acute back pain usually goes away with rest and home care. Follow these instructions at home: Managing pain, stiffness, and swelling Take mcnx-sea-fmzdbix and prescription medicines only as told by your health care provider. Treatment may include medicines for pain and inflammation that are taken by mouth or applied to the skin, or muscle relaxants. Your health care provider may recommend applying ice during the first 24 48 hours after your pain starts. To do this: ?Put ice in a plastic bag. ?Place a towel between your skin and the bag. ?Leave the ice on for 20 minutes, 2 3 times a day. ?Remove the ice if your skin turns bright red. This is very important. If you cannot feel pain, heat, or cold, you have a greater risk of damage to the area. If directed, apply heat to the affected area as often as told by your health care provider. Use theheat source that your health care provider recommends, such as a moist heat pack or a heating pad. ?Place a towel between your skin and the heat source. ?Leave the heat on for 20 30 minutes. ?Remove the heat if your skin turns bright red. This is especially important if you are unable to feel pain, heat, or cold. You have a greater risk of getting burned. Activity Do not stay in bed. Staying in bed for more than 1 2 days can delay your recovery. Sit up and stand up straight. Avoid leaning forward when you sit or hunching over when you stand. ?If you work at a desk, sit close to it so you do not need to lean over. Keep your chin tucked in. Keep your neck drawn back, and keep your elbows bent at a 90-degree angle (right angle). ?Sit high and close to the steering wheel when you drive. Add lower back (lumbar) support to your car seat, if needed. Take short walks on even surfaces as soon as you are able. Try to increase the length of time you walk each day. Do not sit, drive, or intelligence consultant one place for more than 30 minutes at a time. Sitting or standing for long periods of time can put stress on your back. Do not drive or use heavy machinery while taking prescription pain medicine. Use proper lifting techniques. When you bend and lift, use positions that put less stress on your back: ?Bend your knees. ?Keep the load close to your body. ?Avoid twisting. Exercise regularly as told by your health care provider. Exercising helps your back heal faster andhelps prevent back injuries by keeping muscles strong and flexible. Work with a physical therapist to make a safe exercise program, as recommended by your health care provider. Do any exercises as told by your physical therapist. Lifestyle Maintain a healthy weight. Extra weight puts stress on your back and makes it difficult to have good posture. Avoid activities or situations that make you feel anxious or stressed. Stress and anxiety increase muscle tension and can make back pain worse. Learn ways to manage anxiety and stress, such as through exercise. General instructions Sleep on a firm mattress in a comfortable position. Try lying on your side with your knees slightlybent. If you lie on your back, put a pillow under your knees. Keep your head and neck in a straight line with your spine (neutral position) when using electronicequipment like smartphones or pads. To do this: ?Raise your smartphone or pad to look at it instead of bending your head or neck to look down. ?Put the smartphone or pad at the level of your face while looking at the screen. Follow your treatment plan as told by your health care provider. This may include: ?Cognitive or behavioral therapy. ?Acupuncture or massage therapy. ?Meditation or yoga. Contact a health care provider if: You have pain that is not relieved with rest or medicine. You have increasing pain going down into your legs or buttocks. Your pain does not improve after 2 weeks. You have pain at night. You lose weight without trying. You have a fever or chills. You develop nausea or vomiting. You develop abdominal pain. Get help right away if: You develop new bowel or bladder control problems. You have unusual weakness or numbness in your arms or legs. You feel faint. These symptoms may represent a serious problem that is an emergency. Do not wait to see if the symptoms will go away. Get medical help right away. Call your local emergency services (911 in the [place] Do not drive yourself to the hospital. Summary Acute back pain is sudden and usually short-lived. Use proper lifting techniques. When you bend and lift, use positions that put less stress on your back. Take vjkk-bxa-dgiasde and prescription medicines only as told by your health care provider, and apply heat or ice as told. This information is not intended to replace advice given to you by your health care provider. Make sure you discuss any questions you have with your health care provider. Document Revised: 06/02/2021 Document Reviewed: 06/02/2021 [employer] Patient Education 2022 [email or web address]. Follow Up Care 07/06/2023 18:10:42 With:Cheyanne Rosas Address: [address] [place] [address] A [place] [phone] Business (1) When:Within 3 Day(s) [facility]04-13-2024 Evaluation + Plan noteExtracted from: Title:ED Note Author:Pedro Pablo Fletcher DO Date :07/06/23 Acute exacerbation of chroni c low back pain (M54.50: Low back pain, unspecified) Other chronic pain (G89.29: Other chronic pain) Orders: acetaminophen-oxycodone, 1 EA, Tab, Oral, Once, Stop date 07/06/23 19:41:00 EDT, STAT, Start date 07/06/23 19:41:00 EDT ketorolac, 30 mg = 1 mL, Injection, IntraMuscular, Once, Stop date 07/06/23 19:40:00 EDT, STAT, Start date 07/06/23 19:40:00 EDT, 07/06/23 19:40:00 EDT morphine, 4 mg = 1 mL, Injection, IntraMuscular, Once, Stop date 07/06/23 19:41:00 EDT, STAT, Start date 07/06/23 19:41:00 EDT, 07/06/23 19:41:00 EDT Future Appointments Appointment Date:07/15/2023 01:45:00 PM Scheduled Provider:Dory Shepherd PA-C [facility] Type:Pain Management - New () Appointment Date:07/17/2023 07:40:00 AM Scheduled Provider:Cheyanne Rincon Location:[facility] Appointment Type:FM New Patient - Adult [facility]04-06-2024 Hospital Discharge instructions Patient Education 06/29/2023 14:20:12 Chronic Back Pain Chronic Back Pain When back pain lasts longer than 3 months, it is called chronic back pain. The cause of your back pain may not be known. Some common causes include: Wear and tear (degenerative disease) of the bones, ligaments, or disks in your back. Inflammation and stiffness in your back (arthritis). People who have chronic back pain often go through certain periods in which the pain is more intense (flare-ups). Many people can learn to manage the pain with home care. Follow these instructions at home: Pay attention to any changes in your symptoms. Take these actions to help with your pain: Managing pain and stiffness If directed, apply ice to the painful area. Your health care provider may recommend applying ice during the first 24 48 hours after a flare-up begins. To do this: ?Put ice in a plastic bag. ?Place a towel between your skin and the bag. ?Leave the ice on for 20 minutes, 2 3 times per day. If directed, apply heat to the affected area as often as told by your health care provider. Use theheat source that your health care provider recommends, such as a moist heat pack or a heating pad. ?Place a towel between your skin and the heat source. ?Leave the heat on for 20 30 minutes. ?Remove the heat if your skin turns bright red. This is especially important if you are unable to feel pain, heat, or cold. You may have a greater risk of getting burned. Try soaking in a warm tub. Activity Avoid bending and other activities that make the problem worse. Maintain a proper position when standing or sitting: ?When standing, keep your upper back and neck straight, with your shoulders pulled back. Avoid slouching. ?When sitting, keep your back straight and relax your shoulders. Do not round your shoulders or pull them backward. Do not sit or intelligence consultant one place for long periods of time. Take brief periods of rest throughout the day. This will reduce your pain. Resting in a lying or standing position is usually better than sitting to rest. When you are resting for longer periods, mix in some mild activity or stretching between periods ofrest. This will help to prevent stiffness and pain. Get regular exercise. Ask your health care provider what activities are safe for you. Do not lift anything that is heavier than 10 lb (4.5 kg), or the limit that you are told, until your health care provider says that it is safe. Always use proper lifting technique, which includes: ?Bending your knees. ?Keeping the load close to your body. ?Avoiding twisting. Sleep on a firm mattress in a comfortable position. Try lying on your side with your knees slightlybent. If you lie on your back, put a pillow under your knees. Medicines Treatment may include medicines for pain and inflammation taken by mouth or applied to the skin, prescription pain medicine, or muscle relaxants. Take uood-sxe-emtdxdb and prescription medicines onlyas told by your health care provider. Ask your health care provider if the medicine prescribed to you: ?Requires you to avoid driving or using machinery. ?Can cause constipation. You may need to take these actions to prevent or treat constipation: ?Drink enough fluid to keep your urine pale yellow. ?Take dmwo-olc-sablrfi or prescription medicines. ?Eat foods that are high in fiber, such as beans, whole grains, and fresh fruits and vegetables. ?Limit foods that are high in fat and processed sugars, such as fried or sweet foods. General instructions Do not use any products that contain nicotine or tobacco, such as cigarettes, e- cigarettes, and chewing tobacco. If you need help quitting, ask your health care provider. Keep all follow-up visits as told by your health care provider. This is important. Contact a health care provider if: You have pain that is not relieved with rest or medicine. Your pain gets worse, or you have new pain. You have a high fever. You have rapid weight loss. You have trouble doing your normal activities. Get help right away if: You have weakness or numbness in one or both of your legs or feet. You have trouble controlling your bladder or your bowels. You have severe back pain and have any of the following: ?Nausea or vomiting. ?Pain in your abdomen. ?Shortness of breath or you faint. Summary Chronic back pain is back pain that lasts longer than 3 months. When a flare-up begins, apply ice to the painful area for the first 24 48 hours. Apply a moist heat pad or use a heating pad on the painful area as directed by your health care provider. When you are resting for longer periods, mix in some mild activity or stretching between periods ofrest. This will help to prevent stiffness and pain. This information is not intended to replace advice given to you by your health care provider. Make sure you discuss any questions you have with your health care provider. Document Revised: 04/20/2020 Document Reviewed: 04/20/2020 [employer] Patient Education 2022 [email or web address]. 06/29/2023 14:20:12 Acute Back Pain, Adult Acute Back Pain, Adult Acute back pain is sudden and usually short-lived. It is often caused by an injury to the muscles and tissues in the back. The injury may result from: A muscle, tendon, or ligament getting overstretched or torn. Ligaments are tissues that connect bones to each other. Lifting something improperly can cause a back strain. Wear and tear (degeneration) of the spinal disks. Spinal disks are circular tissue that provide cushioning between the bones of the spine (vertebrae). Twisting motions, such as while playing sports or doing yard work. A hit to the back. Arthritis. You may have a physical exam, lab tests, and imaging tests to find the cause of your pain. Acute back pain usually goes away with rest and home care. Follow these instructions at home: Managing pain, stiffness, and swelling Take jjfc-gpw-rhgsyhw and prescription medicines only as told by your health care provider. Treatment may include medicines for pain and inflammation that are taken by mouth or applied to the skin, or muscle relaxants. Your health care provider may recommend applying ice during the first 24 48 hours after your pain starts. To do this: ?Put ice in a plastic bag. ?Place a towel between your skin and the bag. ?Leave the ice on for 20 minutes, 2 3 times a day. ?Remove the ice if your skin turns bright red. This is very important. If you cannot feel pain, heat, or cold, you have a greater risk of damage to the area. If directed, apply heat to the affected area as often as told by your health care provider. Use theheat source that your health care provider recommends, such as a moist heat pack or a heating pad. ?Place a towel between your skin and the heat source. ?Leave the heat on for 20 30 minutes. ?Remove the heat if your skin turns bright red. This is especially important if you are unable to feel pain, heat, or cold. You have a greater risk of getting burned. Activity Do not stay in bed. Staying in bed for more than 1 2 days can delay your recovery. Sit up and stand up straight. Avoid leaning forward when you sit or hunching over when you stand. ?If you work at a desk, sit close to it so you do not need to lean over. Keep your chin tucked in. Keep your neck drawn back, and keep your elbows bent at a 90-degree angle (right angle). ?Sit high and close to the steering wheel when you drive. Add lower back (lumbar) support to your car seat, if needed. Take short walks on even surfaces as soon as you are able. Try to increase the length of time you walk each day. Do not sit, drive, or intelligence consultant one place for more than 30 minutes at a time. Sitting or standing for long periods of time can put stress on your back. Do not drive or use heavy machinery while taking prescription pain medicine. Use proper lifting techniques. When you bend and lift, use positions that put less stress on your back: ?Bend your knees. ?Keep the load close to your body. ?Avoid twisting. Exercise regularly as told by your health care provider. Exercising helps your back heal faster andhelps prevent back injuries by keeping muscles strong and flexible. Work with a physical therapist to make a safe exercise program, as recommended by your health care provider. Do any exercises as told by your physical therapist. Lifestyle Maintain a healthy weight. Extra weight puts stress on your back and makes it difficult to have good posture. Avoid activities or situations that make you feel anxious or stressed. Stress and anxiety increase muscle tension and can make back pain worse. Learn ways to manage anxiety and stress, such as through exercise. General instructions Sleep on a firm mattress in a comfortable position. Try lying on your side with your knees slightlybent. If you lie on your back, put a pillow under your knees. Keep your head and neck in a straight line with your spine (neutral position) when using electronicequipment like smartphones or pads. To do this: ?Raise your smartphone or pad to look at it instead of bending your head or neck to look down. ?Put the smartphone or pad at the level of your face while looking at the screen. Follow your treatment plan as told by your health care provider. This may include: ?Cognitive or behavioral therapy. ?Acupuncture or massage therapy. ?Meditation or yoga. Contact a health care provider if: You have pain that is not relieved with rest or medicine. You have increasing pain going down into your legs or buttocks. Your pain does not improve after 2 weeks. You have pain at night. You lose weight without trying. You have a fever or chills. You develop nausea or vomiting. You develop abdominal pain. Get help right away if: You develop new bowel or bladder control problems. You have unusual weakness or numbness in your arms or legs. You feel faint. These symptoms may represent a serious problem that is an emergency. Do not wait to see if the symptoms will go away. Get medical help right away. Call your local emergency services (911 in the [place] Do not drive yourself to the hospital. Summary Acute back pain is sudden and usually short-lived. Use proper lifting techniques. When you bend and lift, use positions that put less stress on your back. Take ujfv-fog-acmqcnj and prescription medicines only as told by your health care provider, and apply heat or ice as told. This information is not intended to replace advice given to you by your health care provider. Make sure you discuss any questions you have with your health care provider. Document Revised: 06/02/2021 Document Reviewed: 06/02/2021 [employer] Patient Education 2022 [employer] Follow Up Care 06/29/2023 13:03:37 With:Cheyanne Rosas Address: [address], [facility] [place] [phone] Business (1) When:07/02/2023 14:07:11 Comments:Follow-up with your primary care provider in 3 to 5 days. If symptoms worsen, do not improve, or new symptoms arise please report back to emergency department for further evaluation. [facility]04-06-2024 Evaluation + Plan noteExtracted from: Title:ED Note Author:Landon Tidwell PA-C te:06/29/23 Lumbago (M54.50: Low back pa in, unspecified) Orders: ketorolac, 60 mg = 2 mL, Injection, IntraMuscular, Once, Stop date 06/29/23 14:06:00 EDT, STAT, Start date 06/29/23 14:06:00 EDT, 06/29/23 14:06:00 EDT morphine, 4 mg = 1 mL, Injection, IntraMuscular, Once, Stop date 06/29/23 14:06:00 EDT, STAT, Start date 06/29/23 14:06:00 EDT, 06/29/23 14:06:00 EDT Future Appointments Appointment Date:07/15/2023 01:45:00 PM Scheduled Provider:Dory Shepherd PA-C [facility] Type:Pain Management - New () Appointment Date:07/17/2023 07:40:00 AM Scheduled Provider:Cheyanne Rincon Location:[facility] Appointment Type: New Patient - Adult [facility]04-04-2024 Hospital Discharge instructions Patient Education 06/27/2023 12:37:54 Lumbosacral Radiculopathy Lumbosacral Radiculopathy Lumbosacral radiculopathy is a condition that involves the spinal nerves and nerve roots in the lowback and bottom of the spine. The condition develops when these nerves and nerve roots move out of place or become inflamed and cause symptoms. What are the causes? This condition may be caused by: Pressure from a disk that bulges out of place (herniated disk). A disk is a plate of soft cartilagethat separates bones in the spine. Disk changes that occur with age (disk degeneration). A narrowing of the bones of the lower back (spinal stenosis). A tumor. An infection. An injury that places sudden pressure on the disks that cushion the bones of your lower spine. What increases the risk? You are more likely to develop this condition if: You are a male who is 30 50 years old. You are a female who is 50 60 years old. You use improper technique when lifting things. You are overweight or live a sedentary lifestyle. You smoke. Your work requires frequent lifting. You do repetitive activities that strain the spine. What are the signs or symptoms? Symptoms of this condition include: Pain that goes down from your back into your legs (sciatica), usually on one side of the body. Thisis the most common symptom. The pain may be worse when you sit, cough, or sneeze. Tingling and numbness in your legs. Muscle weakness in your legs. Loss of bladder control or bowel control. How is this diagnosed? This condition may be diagnosed based on: Your symptoms and medical history. A physical exam. If the pain lasts, you may have tests, such as: MRI. X-ray. CT scan. A type of CT scan used to examine the spinal canal after injecting a dye into your spine (myelogram). A test to measure how electrical impulses move through a nerve (nerve conduction study). A test to measure the electrical activity in muscles (electromyogram). How is this treated? In many cases, treatment is not needed for this condition. With rest, the condition usually gets better over time. If treatment is needed, it may include: Working with a physical therapist to improve strength and flexibility. Taking pain medicine. Applying heat or ice or both to the affected areas. Having chiropractic spinal manipulation. Using transcutaneous electrical nerve stimulation (TENS) therapy. Getting a steroid injection in the spine. Having surgery. This may be needed if other treatments do not help. Different types of surgery may be done depending on the cause of this condition. Follow these instructions at home: Activity Avoid bending and any other activities that make the problem worse. Maintain a proper position when standing or sitting. ?When standing, keep your upper back and neck straight with your shoulders pulled back. Avoid slouching. ?When sitting, keep your back straight and relax your shoulders. Do not round your shoulders or pull them backward. Do not sit or intelligence consultant one place for long periods of time. Take brief periods of rest throughout the day. This will reduce your pain. It is usually better to rest by lying down or standing, not sitting. Mix in mild activity or stretching between long periods of rest. This will help to prevent stiffness and pain. Get regular exercise. Ask your health care provider what activities are safe for you. If you were shown how to do any exercises or stretches, do them as told by your health care provider. You may have to avoid lifting. Ask your health care provider how much you can safely lift. Always use proper lifting technique, which includes: ?Bending your knees. ?Keeping the load close to your body. ?Avoiding twisting. Managing pain If directed, put ice on the affected area. To do this: ?Put ice in a plastic bag. ?Place a towel between your skin and the bag. ?Leave the ice on for 20 minutes, 2 3 times a day. ?Remove the ice if your skin turns bright red. This is very important. If you cannot feel pain, heat, or cold, you have a greater risk of damage to the area. If directed, apply heat to the affected area as often as told by your health care provider. Use theheat source that your health care provider recommends, such as a moist heat pack or a heating pad. ?Place a towel between your skin and the heat source. ?Leave the heat on for 20 30 minutes. ?Remove the heat if your skin turns bright red. This is especially important if you are unable to feel pain, heat, or cold. You have a greater risk of getting burned. Take lekk-sei-cpmvrvh and prescription medicines only as told by your health care provider. General instructions Sleep on a firm mattress in a comfortable position. Try lying on your side with your knees slightlybent. If you lie on your back, put a pillow under your knees. Ask your health care provider if the medicine prescribed to you requires you to avoid driving or using machinery. If your health care provider prescribed a diet or exercise program, follow it as told. Keep all follow-up visits. This is important. Contact a health care provider if: Your pain does not get better over time, even when taking pain medicines. Get help right away if: You develop severe pain. Your pain suddenly gets worse. You develop increasing weakness in your legs. You lose the ability to control your bladder or bowel. You have difficulty walking or balancing. You have a fever. Summary Lumbosacral radiculopathy is a condition that occurs when the spinal nerves and nerve roots in the lower part of the spine move out of place or become inflamed and cause symptoms. Symptoms include pain, numbness, and tingling that go down from your back into your legs (sciatica), muscle weakness, and loss of bladder control or bowel control. If directed, apply ice or heat or both to the affected area as told by your health care provider. Follow instructions about activity, rest, and proper lifting technique. This information is not intended to replace advice given to you by your health care provider. Make sure you discuss any questions you have with your health care provider. Document Revised: 09/14/2021 Document Reviewed: 09/14/2021 [employer] Patient Education 2022 [email or web address] 06/27/2023 12:37:54 Herniated Disk Herniated Disk A herniated disk, also called a ruptured disk or slipped disk, occurs when a disk in the spine bulges out too far. Between the bones in the spine (vertebrae), there are oval disks that are made of a soft, spongy center filled with liquid that is surrounded by a tough outer ring. The disks connect the vertebrae, help the spine move, and keep the bones from rubbing against each other when you move. When you have a herniated disk, the spongy center of the disk bulges out or breaks through the outer ring. The spongy center can press on a nerve between the vertebrae and cause pain. This can occur anywhere in the back or neck area, but the lower back is most commonly affected. What are the causes? This condition may be caused by: Age-related wear and tear. Sudden injury, such as a strain or sprain. What increases the risk? The following factors may make you more likely to develop this condition: Aging. This is the main risk factor for a herniated disk. Being a man who is 30 50 years old. Frequently doing activities that involve heavy lifting, bending, or twisting. Not getting enough exercise. Being overweight. Using tobacco products. What are the signs or symptoms? Symptoms may vary depending on where your herniated disk is located. A herniated disk in the lower back may cause: ?Sharp pain in part of the hips, buttocks, or legs. ?Sharp pain in the lower back, spreading down through the leg into the foot (sciatica). A herniated disk in the neck may cause dizziness and vertigo. It may also cause pain or weakness inthe neck, shoulder, or upper arm, forearm, or fingers. You may also have muscle weakness. You may have trouble: Lifting your leg or arm. Standing on your toes. Squeezing tightly with one of your hands. Other symptoms may include: Numbness or tingling in the affected areas of the hands, arms, feet, or legs. Inability to control when you urinate or when you have bowel movements. This is a rare but serious sign of a severe herniated disk in the lower back. How is this diagnosed? This condition may be diagnosed based on: Your symptoms. Your medical history. A physical exam. The exam may include: ?A straight-leg test. For this test, you will lie on your back while your health care provider lifts your leg, keeping your knee straight. If you feel pain, you likely have a herniated disk. ?Neurologic tests. These include checking for numbness, reflexes, muscle strength, and problems with posture. Imaging tests, such as: ?X-rays. ?MRI. ?CT scan. ?Electromyogram (EMG) to check the nerves that control muscles. How is this treated? Treatment for this condition may include: A period of light, painless activity for a few days to several weeks. Complete bed rest is not recommended. ?If you have a herniated disk in your lower back, avoid sitting as it increases pressure on the disk. Medicines. These may include: ?NSAIDs, such as ibuprofen, to help reduce pain and swelling. ?Muscle relaxants to prevent sudden tightening of the back muscles (back spasms). ?Prescription pain medicines, if you have severe pain. Ice or heat therapy. Steroid injections in the area of the herniated disk. These can help reduce pain and swelling. Physical therapy to strengthen your back muscles. In many cases, symptoms go away with treatment over a period of days or weeks. You will most likelybe free of symptoms after 3 4 months. If other treatments do not help to relieve your symptoms, youmay need surgery. Follow these instructions at home: Medicines Take uufn-dyd-iogdmph and prescription medicines only as told by your health care provider. Ask your health care provider if the medicine prescribed to you: ?Requires you to avoid driving or using heavy machinery. ?Can cause constipation. You may need to take these actions to prevent or treat constipation: ?Drink enough fluid to keep your urine pale yellow. ?Take vqgb-lif-pdasedw or prescription medicines. ?Eat foods that are high in fiber, such as beans, whole grains, and fresh fruits and vegetables. ?Limit foods that are high in fat and processed sugars, such as fried or sweet foods. Managing pain, stiffness, and swelling If directed, put ice on the painful area. Icing can help to relieve pain. To do this: ?Put ice in a plastic bag. ?Place a towel between your skin and the bag. ?Leave the ice on for 20 minutes, 2 3 times a day. ?Remove the ice if your skin turns bright red. This is very important. If you cannot feel pain, heat, or cold, you have a greater risk of damage to the area. If directed, apply heat to the painful area as often as told by your health care provider. Heat canreduce the stiffness of your muscles. Use the heat source that your health care provider recommends, such as a moist heat pack or a heating pad. ?Place a towel between your skin and the heat source. ?Leave the heat on for 20 30 minutes. ?Remove the heat if your skin turns bright red. This is especially important if you are unable to feel pain, heat, or cold. You may have a greater risk of getting burned. Activity Avoid strict bed rest but only do activities that are painless. Gradually return to your normal activities and exercise as told by your health care provider. Ask your health care provider what activities and exercises are safe for you. Use good posture. Avoid movements that cause pain. Do not lift anything that is heavier than 10 lb (4.5 kg), or the limit that you are told, until your health care provider says that it is safe. Do not sit or stand for long periods of time without changing positions. Do not sit for long periods of time without getting up and moving around. If physical therapy was prescribed, do exercises as told by your health care provider. Aim to strengthen muscles in your back and abdomen with exercises such as swimming or walking. General instructions Do not use any products that contain nicotine or tobacco, such as cigarettes, e- cigarettes, and chewing tobacco. These products can delay healing. If you need help quitting, ask your health care provider. Do not wear high-heeled shoes. Do not sleep on your abdomen. If you are overweight, work with your health care provider to lose weight safely. Keep all follow-up visits. This is important. How is this prevented? Maintain a healthy weight. Maintain physical fitness. Do at least 150 minutes of moderate-intensity exercise each week, such as brisk walking or water aerobics. When lifting objects: ?Keep your feet at least shoulder-width apart and tighten the muscles of your abdomen. ?Keep your spine neutral as you bend your knees and hips. It is important to lift using the strength of your legs, not your back. Do not lock your knees straight out. ?Always ask for help to lift heavy or awkward objects. Contact a health care provider if you: Have back pain or neck pain that does not get better after 6 weeks. Have severe pain in your back, neck, legs, or arms. Develop numbness, tingling, or weakness anywhere in your body. Get help right away if: You cannot move your arms or legs. You cannot control when you urinate or have bowel movements. You feel dizzy or you faint. You have shortness of breath. These symptoms may represent a serious problem that is an emergency. Do not wait to see if the symptoms will go away. Get medical help right away. Call your local emergency services (911 in the [place] Do not drive yourself to the hospital. Summary A herniated disk, also called a ruptured disk or slipped disk, occurs when a disk in the spine bulges out too far (herniates). This condition may be caused by age-related wear and tear or a sudden injury. Symptoms may vary depending on where your herniated disk is located. Treatment may include rest, medicines, ice or heat therapy, steroid injections, and physical therapy. If other treatments do not help to relieve your symptoms, you may need surgery. This information is not intended to replace advice given to you by your health care provider. Make sure you discuss any questions you have with your health care provider. Document Revised: 06/29/2020 Document Reviewed: 06/29/2020 [employer] Patient Education 2022 [email or web address] Follow Up Care 06/27/2023 11:49:45 With:[facility] [phone] Address:Unknown When:06/30/2023 12:22:32 With:Cheyanne Rosas Address: [address], [facility] [address] [address] Business (1) When:Within 3 Day(s) [facility]04-04-2024 Evaluation + Plan noteExtracted from: Title:ED Note Author:Kristie Boss PA-C Date:06/27/23 1. Chronic left-sided lumbar radiculopathy (M54.16: Radiculopathy, lumbar region) 2. Herniated intervertebral disc of lumbar spine (M51.26: Other intervertebral disc displacement, lumbar region) Orders: acetaminophen-oxycodone, 1 tab(s), Tab, Oral, Once, Stop date 06/27/23 12:32:00 EDT, STAT, Start date 06/27/23 12:32:00 EDT ibuprofen, 600 mg = 1 tab(s), Oral, q6hr, Pt is to start this after she has completed the course of prednisone, # 40 tab(s), Refills(s) 0, Pharmacy: [facility]/pharmacy #[id number], 160, cm, 06/27/23 11:54:00 EDT, Height/Length Dosing, 117.2, kg, 06/27/23 11:54:00 EDT, Weigh... ketorolac, 60 mg = 2 mL, Injection, IntraMuscular, Once, Stop date 06/27/23 12:13:00 EDT, STAT, Start date 06/27/23 12:13:00 EDT, 06/27/23 12:13:00 EDT orphenadrine, 60 mg = 2 mL, Injection, IntraMuscular, Once, Stop date 06/27/23 12:14:00 EDT, STAT, Start date 06/27/23 12:14:00 EDT, 06/27/23 12:14:00 EDT predniSONE, = 1 -, Oral, As Directed, Take 3 tabs by mouth daily x3 days, then 2 tabs daily x3 days, then 1 tab daily x3 days., # 18 tab(s), Refills(s) 0, Pharmacy: [facility]/pharmacy #[id number], 160, cm, 06/27/23 11:54:00 EDT, Height/Length Dosing, 117.2, kg, 06/27/23 11:5... tizanidine, 4 mg = 1 tab(s), Oral, q6hr, PRN Muscle pain, # 40 tab(s), Refills(s) 0, Pharmacy: [facility]/pharmacy #[id number], 160, cm, 06/27/23 11:54:00 EDT, Height/Length Dosing, 117.2, kg, 06/27/23 11:54:00 EDT, Weight Dosing Future Appointments Appointment Date:07/17/2023 07:40:00 AM Scheduled Provider:Cheyanne Rincon Location:[facility] Appointment Type: New Patient - Adult [facility]04-01-2024 Evaluation + Plan noteExtracted from: Title:ED Note Author:Annette Watkins, Balbina Celis te:06/24/23 1. Chronic lower back pain ( M54.50: Low back pain, unspecified) 2. Degenerative disc disease, lumbar (M51.36: Other intervertebral disc degeneration, lumbar region) Other chronic pain (G89.29: Other chronic pain) Orders: acetaminophen-oxycodone, 1 tab(s), Tab, Oral, Once, Stop date 06/24/23 11:40:00 EDT, STAT, Start date 06/24/23 11:40:00 EDT ketorolac, 60 mg = 2 mL, Injection, IntraMuscular, Once, Stop date 06/24/23 10:09:00 EDT, STAT, Start date 06/24/23 10:09:00 EDT, 06/24/23 10:09:00 EDT orphenadrine, 60 mg = 2 mL, Injection, IntraMuscular, Once, Stop date 06/24/23 10:09:00 EDT, STAT, Start date 06/24/23 10:09:00 EDT, 06/24/23 10:09:00 EDT Bladder Scan MRI Spine Lumbar w/o Contrast Future Appointments Appointment Date:07/17/2023 07:40:00 AM Scheduled Provider:Cheyanne Rincon Location:[facility] Appointment Type: New Patient - Adult [facility]04-01-2024 Hospital Discharge instructions Patient Education 06/24/2023 11:56:52 Chronic Back Pain Chronic Back Pain When back pain lasts longer than 3 months, it is called chronic back pain. The cause of your back pain may not be known. Some common causes include: Wear and tear (degenerative disease) of the bones, ligaments, or disks in your back. Inflammation and stiffness in your back (arthritis). People who have chronic back pain often go through certain periods in which the pain is more intense (flare-ups). Many people can learn to manage the pain with home care. Follow these instructions at home: Pay attention to any changes in your symptoms. Take these actions to help with your pain: Managing pain and stiffness If directed, apply ice to the painful area. Your health care provider may recommend applying ice during the first 24 48 hours after a flare-up begins. To do this: ?Put ice in a plastic bag. ?Place a towel between your skin and the bag. ?Leave the ice on for 20 minutes, 2 3 times per day. If directed, apply heat to the affected area as often as told by your health care provider. Use theheat source that your health care provider recommends, such as a moist heat pack or a heating pad. ?Place a towel between your skin and the heat source. ?Leave the heat on for 20 30 minutes. ?Remove the heat if your skin turns bright red. This is especially important if you are unable to feel pain, heat, or cold. You may have a greater risk of getting burned. Try soaking in a warm tub. Activity Avoid bending and other activities that make the problem worse. Maintain a proper position when standing or sitting: ?When standing, keep your upper back and neck straight, with your shoulders pulled back. Avoid slouching. ?When sitting, keep your back straight and relax your shoulders. Do not round your shoulders or pull them backward. Do not sit or intelligence consultant one place for long periods of time. Take brief periods of rest throughout the day. This will reduce your pain. Resting in a lying or standing position is usually better than sitting to rest. When you are resting for longer periods, mix in some mild activity or stretching between periods ofrest. This will help to prevent stiffness and pain. Get regular exercise. Ask your health care provider what activities are safe for you. Do not lift anything that is heavier than 10 lb (4.5 kg), or the limit that you are told, until your health care provider says that it is safe. Always use proper lifting technique, which includes: ?Bending your knees. ?Keeping the load close to your body. ?Avoiding twisting. Sleep on a firm mattress in a comfortable position. Try lying on your side with your knees slightlybent. If you lie on your back, put a pillow under your knees. Medicines Treatment may include medicines for pain and inflammation taken by mouth or applied to the skin, prescription pain medicine, or muscle relaxants. Take stfa-crz-vevsywr and prescription medicines onlyas told by your health care provider. Ask your health care provider if the medicine prescribed to you: ?Requires you to avoid driving or using machinery. ?Can cause constipation. You may need to take these actions to prevent or treat constipation: ?Drink enough fluid to keep your urine pale yellow. ?Take rymf-xga-yrropid or prescription medicines. ?Eat foods that are high in fiber, such as beans, whole grains, and fresh fruits and vegetables. ?Limit foods that are high in fat and processed sugars, such as fried or sweet foods. General instructions Do not use any products that contain nicotine or tobacco, such as cigarettes, e- cigarettes, and chewing tobacco. If you need help quitting, ask your health care provider. Keep all follow-up visits as told by your health care provider. This is important. Contact a health care provider if: You have pain that is not relieved with rest or medicine. Your pain gets worse, or you have new pain. You have a high fever. You have rapid weight loss. You have trouble doing your normal activities. Get help right away if: You have weakness or numbness in one or both of your legs or feet. You have trouble controlling your bladder or your bowels. You have severe back pain and have any of the following: ?Nausea or vomiting. ?Pain in your abdomen. ?Shortness of breath or you faint. Summary Chronic back pain is back pain that lasts longer than 3 months. When a flare-up begins, apply ice to the painful area for the first 24 48 hours. Apply a moist heat pad or use a heating pad on the painful area as directed by your health care provider. When you are resting for longer periods, mix in some mild activity or stretching between periods ofrest. This will help to prevent stiffness and pain. This information is not intended to replace advice given to you by your health care provider. Make sure you discuss any questions you have with your health care provider. Document Revised: 04/20/2020 Document Reviewed: 04/20/2020 [employer] Patient Education 2022 [employer] Follow Up Care 06/24/2023 09:43:03 With:Cheyanne Rosas Address: [address], [facility] [place] [phone] Business (1) When:06/27/2023 11:48:27 Comments:Follow-up with your primary doctor and your back specialist. Return to the emergency room if your pain gets worse or any new symptoms. [facility]03-30-2024 Hospital Discharge instructions Patient Education 06/22/2023 18:48:41 Viral Gastroenteritis, Adult, Cmjv-am-Zwlp Viral Gastroenteritis, Adult Viral gastroenteritis is also known as the stomach flu. This condition may affect your stomach, your small intestine, and your large intestine. It can cause sudden watery poop (diarrhea), fever, and vomiting. This condition is caused by certain germs (viruses). These germs can be passed from personto person very easily (are contagious). Having watery poop and vomiting can make you feel weak and cause you to not have enough water in your body (get dehydrated). This can make you tired and thirsty, make you have a dry mouth, and make it so you pee (urinate) less often. It is important to replace the fluids that you lose from having watery poop and vomiting. What are the causes? You can get sick by catching germs from other people. You can also get sick by: ?Eating food, drinking water, or touching a surface that has the germs on it (is contaminated). ?Sharing utensils or other personal items with a person who is sick. What increases the risk? Having a weak body defense system (immune system). Living with one or more children who are younger than 2 years. Living in a senior care. Going on cruise ships. What are the signs or symptoms? Symptoms of this condition start suddenly. Symptoms may last for a few days or for as long as a week. Common symptoms include: ?Watery poop. ?Vomiting. Other symptoms include: ?Fever. ?Headache. ?Feeling tired (fatigue). ?Pain in the belly (abdomen). ?Chills. ?Feeling weak. ?Feeling like you may vomit (nauseous). ?Muscle aches. ?Not feeling hungry. How is this treated? This condition typically goes away on its own. The focus of treatment is to replace the fluids thatyou lose. This condition may be treated with: An ORS (oral rehydration solution). This is a drink that helps you replace fluids and minerals yourbody lost. It is sold at pharmacies and stores. Medicines to help with your symptoms. Probiotic supplements to reduce symptoms of watery poop. Fluids given through an IV tube, if needed. Older adults and people with other diseases or a weak body defense system are at higher risk for not having enough water in the body. Follow these instructions at home: Eating and drinking Take an ORS as told by your doctor. Drink clear fluids in small amounts as you are able. Clear fluids include: ?Water. ?Ice chips. ?Fruit juice that has water added to it (is diluted). ?Low-calorie sports drinks. Drink enough fluid to keep your pee (urine) pale yellow. Eat small amounts of healthy foods every 3 4 hours as you are able. This may include whole grains, fruits, vegetables, lean meats, and yogurt. Avoid fluids that have a lot of sugar or caffeine in them. This includes energy drinks, sports drinks, and soda. Avoid spicy or fatty foods. Avoid alcohol. General instructions Wash your hands often. This is very important after you have watery poop or you vomit. If you cannot use soap and water, use hand hip hop artist. Make sure that all people in your home wash their hands well and often. Take fabg-dth-jkmeaaq and prescription medicines only as told by your doctor. Rest at home while you get better. Watch your condition for any changes. Take a warm bath to help with any burning or pain from having watery poop. Keep all follow-up visits. Contact a doctor if: You cannot keep fluids down. Your symptoms get worse. You have new symptoms. You feel light-headed or dizzy. You have muscle cramps. Get help right away if: You have chest pain. You have trouble breathing, or you are breathing very fast. You have a fast heartbeat. You feel very weak or you faint. You have a very bad headache, a stiff neck, or both. You have a rash. You have very bad pain, cramping, or bloating in your belly. Your skin feels cold and clammy. You feel mixed up (confused). You have pain when you pee. You have signs of not having enough water in the body, such as: ?Dark pee, hardly any pee, or no pee. ?Cracked lips. ?Dry mouth. ?Sunken eyes. ?Feeling very sleepy. ?Feeling weak. You have signs of bleeding, such as: ?You see blood in your vomit. ?Your vomit looks like coffee grounds. ?You have bloody or black poop or poop that looks like tar. These symptoms may be an emergency. Get help right away. Call 911. Do not wait to see if the symptoms will go away. Do not drive yourself to the hospital. Summary Viral gastroenteritis is also known as the stomach flu. This condition can cause sudden watery poop (diarrhea), fever, and vomiting. These germs can be passed from person to person very easily. Take an ORS (oral rehydration solution) as told by your doctor. This is a drink that is sold at pharmacies and stores. Wash your hands often, especially after having watery poop or vomiting. If you cannot use soap and water, use hand hip hop artist. This information is not intended to replace advice given to you by your health care provider. Make sure you discuss any questions you have with your health care provider. Document Revised: 01/08/2022 Document Reviewed: 01/08/2022 [employer] Patient Education 2022 [email or web address] Follow Up Care 06/22/2023 14:18:20 With:Cheyanne Rosas Address: [address] [place] [address] [place] [phone] [facility] (1) When:06/25/2023 18:47:46 Comments:Call the office of your primary care doctor to arrange for follow-up within the above-stated timeframe. Follow-up with your primary care doctor about this ED visit. You should review your labs, imaging, and diagnoses from this ED visit with your primary care physician. There are occasionally non-emergent findings that require additional follow-up after your ED visit. If you were prescribed medications you should discuss possible side-effects and drug interactions with your pharmacist. Call 911 or go to the nearest Emergency Department if you develop any new or worsening symptoms.Seek immediate medical attention if you develop:worsening abdominal pain, new or worsening nausea, new or worsening vomiting, new or worsening diarrhea, chest pain, shortness of breath, pain with urination, problems urinating, fever, chills, weakness, or any new or worsening symptoms. [facility]03-30-2024 Evaluation + Plan noteExtracted from: Title:ED Note Author:Susu Lamar PA-C Date :06/22/23 Acute gastroenteritis (K52.9 : Noninfective gastroenteritis and colitis, unspecified) Orders: dicyclomine, 10 mg = 1 cap(s), Oral, QID, PRN Other (see comment), For abdominal cramping, # 12 cap(s), Refills(s) 0, Pharmacy: [facility]/pharmacy #[id number], 160, cm, 06/22/23 14:24:00 EDT, Height/Length Dosing, 118.5, kg, 06/22/23 14:24:00 EDT, Weight Dosing dicyclomine, 20 mg = 1 tab(s), Tab, Oral, Once, Stop date 06/22/23 18:49:00 EDT, STAT, Start date 06/22/23 18:49:00 EDT, 06/22/23 18:49:00 EDT ondansetron, 4 mg = 1 tab(s), Oral, q8hr, PRN Nausea/Vomiting, # 12 tab(s), Refills(s) 0, Pharmacy: [facility]/pharmacy #[id number], 160, cm, 06/22/23 14:24:00 EDT, Height/Length Dosing, 118.5, kg, 06/22/23 14:24:00 EDT, Weight Dosing ondansetron, 4 mg = 1 tab(s), Tab-Dis, Oral, Once, Stop date 06/22/23 18:49:00 EDT, STAT, Start date 06/22/23 18:49:00 EDT, 06/22/23 18:49:00 EDT Future Appointments Appointment Date:07/17/2023 07:40:00 AM Scheduled Provider:Cheyanne Rincon Location:[facility] Appointment Type:FM New Patient - Adult [facility]03-23-2024 Hospital Discharge instructions Patient Education 06/15/2023 18:41:01 Chronic Back Pain Chronic Back Pain When back pain lasts longer than 3 months, it is called chronic back pain. The cause of your back pain may not be known. Some common causes include: Wear and tear (degenerative disease) of the bones, ligaments, or disks in your back. Inflammation and stiffness in your back (arthritis). People who have chronic back pain often go through certain periods in which the pain is more intense (flare-ups). Many people can learn to manage the pain with home care. Follow these instructions at home: Pay attention to any changes in your symptoms. Take these actions to help with your pain: Managing pain and stiffness If directed, apply ice to the painful area. Your health care provider may recommend applying ice during the first 24 48 hours after a flare-up begins. To do this: ?Put ice in a plastic bag. ?Place a towel between your skin and the bag. ?Leave the ice on for 20 minutes, 2 3 times per day. If directed, apply heat to the affected area as often as told by your health care provider. Use theheat source that your health care provider recommends, such as a moist heat pack or a heating pad. ?Place a towel between your skin and the heat source. ?Leave the heat on for 20 30 minutes. ?Remove the heat if your skin turns bright red. This is especially important if you are unable to feel pain, heat, or cold. You may have a greater risk of getting burned. Try soaking in a warm tub. Activity Avoid bending and other activities that make the problem worse. Maintain a proper position when standing or sitting: ?When standing, keep your upper back and neck straight, with your shoulders pulled back. Avoid slouching. ?When sitting, keep your back straight and relax your shoulders. Do not round your shoulders or pull them backward. Do not sit or intelligence consultant one place for long periods of time. Take brief periods of rest throughout the day. This will reduce your pain. Resting in a lying or standing position is usually better than sitting to rest. When you are resting for longer periods, mix in some mild activity or stretching between periods ofrest. This will help to prevent stiffness and pain. Get regular exercise. Ask your health care provider what activities are safe for you. Do not lift anything that is heavier than 10 lb (4.5 kg), or the limit that you are told, until your health care provider says that it is safe. Always use proper lifting technique, which includes: ?Bending your knees. ?Keeping the load close to your body. ?Avoiding twisting. Sleep on a firm mattress in a comfortable position. Try lying on your side with your knees slightlybent. If you lie on your back, put a pillow under your knees. Medicines Treatment may include medicines for pain and inflammation taken by mouth or applied to the skin, prescription pain medicine, or muscle relaxants. Take rcxm-hpe-wpsdiap and prescription medicines onlyas told by your health care provider. Ask your health care provider if the medicine prescribed to you: ?Requires you to avoid driving or using machinery. ?Can cause constipation. You may need to take these actions to prevent or treat constipation: ?Drink enough fluid to keep your urine pale yellow. ?Take egrj-ovf-gfqxuwc or prescription medicines. ?Eat foods that are high in fiber, such as beans, whole grains, and fresh fruits and vegetables. ?Limit foods that are high in fat and processed sugars, such as fried or sweet foods. General instructions Do not use any products that contain nicotine or tobacco, such as cigarettes, e- cigarettes, and chewing tobacco. If you need help quitting, ask your health care provider. Keep all follow-up visits as told by your health care provider. This is important. Contact a health care provider if: You have pain that is not relieved with rest or medicine. Your pain gets worse, or you have new pain. You have a high fever. You have rapid weight loss. You have trouble doing your normal activities. Get help right away if: You have weakness or numbness in one or both of your legs or feet. You have trouble controlling your bladder or your bowels. You have severe back pain and have any of the following: ?Nausea or vomiting. ?Pain in your abdomen. ?Shortness of breath or you faint. Summary Chronic back pain is back pain that lasts longer than 3 months. When a flare-up begins, apply ice to the painful area for the first 24 48 hours. Apply a moist heat pad or use a heating pad on the painful area as directed by your health care provider. When you are resting for longer periods, mix in some mild activity or stretching between periods ofrest. This will help to prevent stiffness and pain. This information is not intended to replace advice given to you by your health care provider. Make sure you discuss any questions you have with your health care provider. Document Revised: 04/20/2020 Document Reviewed: 04/20/2020 [employer] Patient Education 2022 [email or web address]. Follow Up Care 06/15/2023 17:57:51 With:Cheyanne Rosas Address: [address] [place] [address], [facility] [place] [phone] Business (1) When:06/18/2023 18:33:35 Comments:Return to the emergency room if your pain gets worse, bowel or bladder incontinence, numbness/tingling in the saddle/groin area or any new symptoms. [facility]03-23-2024 Emergency department Note* Germaine David Diaz, 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VERTICA ARCHITECT - 06/15/2023 2:33 PM EDT Chief Complaint Patient presents with Back Pain Patient to ED reference back pain. She has history of chronic back pain with bulging discs at L4 and L5. She is schedule electric stimulator in June. She recently returned to work and is having issues with her back. Patient History Past Medical History: Diagnosis Date Depression Past Surgical History: Procedure Laterality Date CHOLECYSTECTOMY DENTAL SURGERY Bilateral HYSTERECTOMY MYRINGOTOMY W/ TUBES Bilateral TONSILLECTOMY Family History Problem Relation Name Age of Onset Lung disease Mother COPD Mother Lung disease Father Lung cancer Father Heart disease Father Social History Social History Narrative Not on file Allergies Allergen Reactions Hydrocodone Hives and Unknown Hydrocodone-Acetaminophen Hives Penicillin G Hives Penicillins Hives and Unknown Nabumetone Nausea/vomiting and Rash PMH: Reviewed PSH: Reviewed Social History: Reviewed. Allergies reviewed. HPI: Jerad Tracy is a 48 y.o. female who presents to the ED today accompanied by her with complaints of mid to upper back pain, worsening. She has chronic back pain. She recently went back to work and has been doing activities that have aggravated her pain. She's set for stimulator placement sometime after July 08 and has an appt with her new PCP July 16. No loss of bowel or bladder control. Does not see pain management. She has muscle relaxer but states it's not helping her. PHYSICAL EXAM: GENERAL: Vitals noted, no distress. Alert and oriented x 3. Non-toxic. HEAD: Normocephalic, atraumatic. NECK: Supple. No midline or paraspinal tenderness through full range of motion. CARDIAC: Regular rate, rhythm. No murmurs or rubs. RESPIRATORY: Lungs clear and equal bilaterally. No respiratory distress. MUSCULOSKELETAL & SKIN: Warm, dry, and intact. No rash/lesions. No peripheral edema. Ambulates with steady gait. NEURO: No focal neurologic deficits, acting appropriately. Labs Reviewed - No data to display No orders to display Medical Decision Making ED COURSE: This patient was seen and examined by myself independently. She's well appearing withoutevidence of cauda equina today. Will give IM injections of Norflex and Tordaol here today. She has been on Flexeril in the past and this is not what she has at home currently. Therefore, will write aprescription for Flexeril and have her continue Motrin for pain. If needs more pain medication, will need to get into PCP sooner or consult pain management. She is discharged home in a stable condition with computer instructions given and is encouraged to return to the ER for any new or worsening symptoms. DIAGNOSTIC IMPRESSION: #1 acute exacerbation of chronic back pain ROX Martinez 06/15/23 [id number] [facility] Phone: [phone] 152-835303-23-2024 Physician Emergency department Note* ROX Martinez - 06/15/2023 2:33 PM EDT Chief Complaint Patient presents with Back Pain Patient to ED reference back pain. She has history of chronic back pain with bulging discs at L4 and L5. She is schedule electric stimulator in June. She recently returned to work and is having issues with her back. Patient History Past Medical History: Diagnosis Date Depression Past Surgical History: Procedure Laterality Date CHOLECYSTECTOMY DENTAL SURGERY Bilateral HYSTERECTOMY MYRINGOTOMY W/ TUBES Bilateral TONSILLECTOMY Family History Problem Relation Name Age of Onset Lung disease Mother COPD Mother Lung disease Father Lung cancer Father Heart disease Father Social History Social History Narrative Not on file Allergies Allergen Reactions Hydrocodone Hives and Unknown Hydrocodone-Acetaminophen Hives Penicillin G Hives Penicillins Hives and Unknown Nabumetone Nausea/vomiting and Rash PMH: Reviewed PSH: Reviewed Social History: Reviewed. Allergies reviewed. HPI: Jerad Tracy is a 48 y.o. female who presents to the ED today accompanied by her with complaints of mid to upper back pain, worsening. She has chronic back pain. She recently went back to work and has been doing activities that have aggravated her pain. She's set for stimulator placement sometime after July 08 and has an appt with her new PCP July 16. No loss of bowel or bladder control. Does not see pain management. She has muscle relaxer but states it's not helping her. PHYSICAL EXAM: GENERAL: Vitals noted, no distress. Alert and oriented x 3. Non-toxic. HEAD: Normocephalic, atraumatic. NECK: Supple. No midline or paraspinal tenderness through full range of motion. CARDIAC: Regular rate, rhythm. No murmurs or rubs. RESPIRATORY: Lungs clear and equal bilaterally. No respiratory distress. MUSCULOSKELETAL & SKIN: Warm, dry, and intact. No rash/lesions. No peripheral edema. Ambulates with steady gait. NEURO: No focal neurologic deficits, acting appropriately. Labs Reviewed - No data to display No orders to display Medical Decision Making ED COURSE: This patient was seen and examined by myself independently. She's well appearing withoutevidence of cauda equina today. Will give IM injections of Norflex and Tordaol here today. She has been on Flexeril in the past and this is not what she has at home currently. Therefore, will write aprescription for Flexeril and have her continue Motrin for pain. If needs more pain medication, will need to get into PCP sooner or consult pain management. She is discharged home in a stable condition with computer instructions given and is encouraged to return to the ER for any new or worsening symptoms. DIAGNOSTIC IMPRESSION: #1 acute exacerbation of chronic back pain ROX Martinez 06/15/23 1537 [facility] Work Phone: [phone]) 519-429703-23-2024 Evaluation + Plan noteExtracted from: Title:ED Note Author:Annette Watkins, Balbina Sparks Vimal te:06/15/23 1. Chronic back pain (M54.9: Dorsalgia, unspecified) Other chronic pain (G89.29: Other chronic pain) Orders: ketorolac, 30 mg = 1 mL, Injection, IntraMuscular, Once, Stop date 06/15/23 18:23:00 EDT, STAT, Start date 06/15/23 18:23:00 EDT, 06/15/23 18:23:00 EDT methocarbamol, 1,500 mg = 2 tab(s), Oral, TID, X 7 day(s), # 42 tab(s), Refills(s) 0, Pharmacy: [facility]/pharmacy #[id number], 160, cm, 06/15/23 18:08:00 EDT, Height/Length Dosing, 118.5, kg, 06/15/23 18:08:00 EDT, Weight Dosing orphenadrine, 60 mg = 2 mL, Injection, IntraMuscular, Once, Stop date 06/15/23 18:23:00 EDT, STAT, Start date 06/15/23 18:23:00 EDT, 06/15/23 18:23:00 EDT Future Appointments Appointment Date:07/17/2023 07:40:00 AM Scheduled Provider:Cheyanne Rincon Location:[facility] Appointment Type:FM New Patient - Adult [facility]03-19-2024 Hospital Discharge instructions Patient Education 06/11/2023 20:11:42 Chronic Back Pain, Qxtf-[id number] Chronic Back Pain When back pain lasts longer than 3 months, it is called chronic back pain. Pain may get worse at certain times (flare-ups). There are things you can do at home to manage your pain. Follow these instructions at home: Pay attention to any changes in your symptoms. Take these actions to help with your pain: Managing pain and stiffness If told, put ice on the painful area. Your doctor may tell you to use ice for 24 48 hours after theflare-up starts. To do this: ?Put ice in a plastic bag. ?Place a towel between your skin and the bag. ?Leave the ice on for 20 minutes, 2 3 times a day. If told, put heat on the painful area. Do this as often as told by your doctor. Use the heat sourcethat your doctor recommends, such as a moist heat pack or a heating pad. ?Place a towel between your skin and the heat source. ?Leave the heat on for 20 30 minutes. ?Take off the heat if your skin turns bright red. This is especially important if you are unable tofeel pain, heat, or cold. You may have a greater risk of getting burned. Soak in a warm bath. This can help relieve pain. Activity Avoid bending and other activities that make pain worse. When standing: ?Keep your upper back and neck straight. ?Keep your shoulders pulled back. ?Avoid slouching. When sitting: ?Keep your back straight. ?Relax your shoulders. Do not round your shoulders or pull them backward. Do not sit or intelligence consultant one place for long periods of time. Take short rest breaks during the day. Lying down or standing is usually better than sitting. Resting can help relieve pain. When sitting or lying down for a long time, do some mild activity or stretching. This will help to prevent stiffness and pain. Get regular exercise. Ask your doctor what activities are safe for you. Do not lift anything that is heavier than 10 lb (4.5 kg) or the limit that you are told, until yourdoctor says that it is safe. To prevent injury when you lift things: ?Bend your knees. ?Keep the weight close to your body. ?Avoid twisting. Sleep on a firm mattress. Try lying on your side with your knees slightly bent. If you lie on your back, put a pillow under your knees. Medicines Treatment may include medicines for pain and swelling taken by mouth or put on the skin, prescription pain medicine, or muscle relaxants. Take zkch-odz-qraykni and prescription medicines only as told by your doctor. Ask your doctor if the medicine prescribed to you: ?Requires you to avoid driving or using machinery. ?Can cause trouble pooping (constipation). You may need to take these actions to prevent or treat trouble pooping: ?Drink enough fluid to keep your pee (urine) pale yellow. ?Take gkww-cyz-fnoyvzm or prescription medicines. ?Eat foods that are high in fiber. These include beans, whole grains, and fresh fruits and vegetables. ?Limit foods that are high in fat and sugars. These include fried or sweet foods. General instructions Do not use any products that contain nicotine or tobacco, such as cigarettes, e- cigarettes, and chewing tobacco. If you need help quitting, ask your doctor. Keep all follow-up visits as told by your doctor. This is important. Contact a doctor if: Your pain does not get better with rest or medicine. Your pain gets worse, or you have new pain. You have a high fever. You lose weight very quickly. You have trouble doing your normal activities. Get help right away if: One or both of your legs or feet feel weak. One or both of your legs or feet lose feeling (have numbness). You have trouble controlling when you poop (have a bowel movement) or pee (urinate). You have bad back pain and: ?You feel like you may vomit (nauseous), or you vomit. ?You have pain in your belly (abdomen). ?You have shortness of breath. ?You faint. Summary When back pain lasts longer than 3 months, it is called chronic back pain. Pain may get worse at certain times (flare-ups). Use ice and heat as told by your doctor. Your doctor may tell you to use ice after flare-ups. This information is not intended to replace advice given to you by your health care provider. Make sure you discuss any questions you have with your health care provider. Document Revised: 04/20/2020 Document Reviewed: 04/20/2020 [employer] Patient Education 2022 [email or web address]. Follow Up Care 06/11/2023 18:49:29 With:Cheyanne Rosas Address: [facility] [place] [id number] Business (1) When:06/14/2023 19:30:55 Comments:Take the steroids once daily and to complete the course. Use medications as prescribed as needed for pain. Please follow-up with your primary care doctor next 2 to 3 days. Please return to the ED forany new or worsening symptoms. [facility]03-19-2024 Evaluation + Plan noteExtracted from: Title:ED Note Author:Elisa Sánchez DO Date :06/11/23 Chronic back pain (M54.9: Do rsalgia, unspecified) Other chronic pain (G89.29: Other chronic pain) Orders: ketorolac, 30 mg = 1 mL, Injection, IntraMuscular, Once, Stop date 06/11/23 19:29:00 EDT, STAT, Start date 06/11/23 19:29:00 EDT, 06/11/23 19:29:00 EDT methocarbamol, 500 mg = 1 tab(s), Oral, TID, X 3 day(s), # 9 tab(s), Refills(s) 0, Pharmacy: [facility]/pharmacy #[id number], 160, cm, 06/11/23 19:00:00 EDT, Height/Length Dosing, 118.8, kg, 06/11/23 19:00:00 EDT, Weight Dosing morphine, 2 mg = 1 mL, Injection, IntraMuscular, Once, Stop date 06/11/23 19:29:00 EDT, STAT, Start date 06/11/23 19:29:00 EDT, 06/11/23 19:29:00 EDT predniSONE, 50 mg = 1 tab(s), Oral, Daily, X 5 day(s), # 5 tab(s), Refills(s) 0, Pharmacy: [facility]/pharmacy #[id number], 160, cm, 06/11/23 19:00:00 EDT, Height/Length Dosing, 118.8, kg, 06/11/23 19:00:00 EDT, Weight Dosing predniSONE, 60 mg = 3 tab(s), Tab, Oral, Once, Stop date 06/11/23 19:29:00 EDT, STAT, Start date 06/11/23 19:29:00 EDT, 06/11/23 19:29:00 EDT Future Appointments Appointment Date:07/17/2023 07:40:00 AM Scheduled Provider:Cheyanne Rincon Location:[facility] Appointment Type:FM New Patient - Adult [facility]03-16-2024 Emergency department Note* Munira Perez, RN - 06/08/2023 6:29 PM EDT Registration called for registration as pt has been up for discharge for 20 min. [id number] Note* Munira Perez RN - 06/08/2023 6:29 PM EDT Registration called for registration as pt has been up for discharge for 20 min. * Flex Jansen PA-C - 06/08/2023 5:42 PM EDT TRIAGE CHIEF COMPLAINT: Chief Complaint Patient presents with Back Pain HPI: Jerad Tracy is a 48 year old female who presents to the emergency department with a chief complaint of low back pain, this has been a chronic issue however she rode in a long car ride yesterday, visiting family, concerned she may have exacerbated her pain. Does have known bulging disc at L4-L5. No loss of bladder or bowel function, no saddle anesthesia. Did ibuprofen with no relief. No history of IV drug use, no history of fevers chills. REVIEW OF SYSTEMS: Otherwise Negative PAST MEDICAL HISTORY: History reviewed. No pertinent past medical history. FAMILY HISTORY: History reviewed. No pertinent family history. SOCIAL HISTORY: Social History Socioeconomic History Marital status: Legally Spouse name: Not on file Number of children: Not on file Years of education: Not on file Highest education level: Not on file Occupational History Not on file Tobacco Use Smoking status: Every Day Packs/day: .5 Types: Cigarettes Smokeless tobacco: Never Substance and Sexual Activity Alcohol use: Not on file Drug use: Never Sexual activity: Not on file Other Topics Concern Not on file Social History Narrative Not on file Social Determinants of Health Financial Resource Strain: Not on file Food Insecurity: Not on file Transportation Needs: Not on file Physical Activity: Not on file Stress: Not on file Social Connections: Not on file Intimate Partner Violence: Not on file Housing Stability: Not on file SURGICAL HISTORY: History reviewed. No pertinent surgical history. CURRENT MEDICATIONS: Home medications reviewed. ALLERGIES: Hydrocodone-acetaminophen and Penicillin g PHYSICAL EXAM: VITAL SIGNS: Visit Vitals Pulse 88 Temp 97.8 F (36.6 C) Resp 18 Ht 1.6 m (5' 3 ) Wt 113.4 kg (250 lb) SpO2 98% BMI 44.29 kg/m OB Status Postmenopausal Smoking Status Every Day BSA 2.24 m CONSTITUTIONAL: Awake, oriented, appears non-toxic HENT: Atraumatic, normocephalic, oral mucosa pink and moist, airway patent EYES: Conjunctiva clear NECK: Trachea midline, non-tender, supple BACK: Minimal bilateral low back tenderness, no CVA tenderness SKIN: Warm, Dry, No erythema, No rash EXTREMITIES: No clubbing, cyanosis, or edema NEUROLOGIC: Non-focal, CN 2-12 intact, patient ambulating without issue, no foot drop. Labs Reviewed - No data to display ED COURSE / MEDICAL DECISION MAKING: Patient presents with acute on chronic low back pain, exacerbated after long car ride yesterday. Isable to ambulate, no loss of bladder or bowel function, no saddle anesthesia. Discussed with attending who did evaluate patient bbrm-xt-lckl, developed plan for pain control here, will be given fentanyl dose here with Zofran. Being prescription for Percocet. Encourage rest hydration outpatient follow-up as discussed, close return precautions if symptoms get worse. Did discuss with attending, Allyson Griffiths DO, who did evaluate patient oxnz-qq-vesx. Patient otherwise stable at this time, vital signs are stable, patient afebrile, and nontoxic in appearance.Attending physician available for immediate consultation throughout entire patient's stay. Decision to Disposition Home or Admit: Discharge FINAL IMPRESSION: 1. Bilateral low back pain * Cheryl Joiner RN - 06/08/2023 5:39 PM EDT Pt arrives via triage for complaints of lower back apin. Pt states she has hx of bulging disc and states that she was in the car for a long time and thinks that it aggravated her pain more. documented in this [facility] [id number] Hospital Discharge instructions* Discharge Instructions* Flex Jansen PA-C - 06/08/2023 5:58 PM EDT Medication as directed, beware may cause drowsiness. Rest and hydrate, follow-up with your doctors in the next few days, return as needed. * Attachments The following attachments cannot be sent through Care Everywhere. * Back Pain (Malaysian) documented in this encounterPreCleveland [id number] Physician Emergency department Note* Flex Jansen PA-C - 06/08/2023 5:42 PM EDT TRIAGE CHIEF COMPLAINT: Chief Complaint Patient presents with Back Pain HPI: Jerad Tracy is a 48 year old female who presents to the emergency department with a chief complaint of low back pain, this has been a chronic issue however she rode in a long car ride yesterday, visiting family, concerned she may have exacerbated her pain. Does have known bulging disc at L4-L5. No loss of bladder or bowel function, no saddle anesthesia. Did ibuprofen with no relief. No history of IV drug use, no history of fevers chills. REVIEW OF SYSTEMS: Otherwise Negative PAST MEDICAL HISTORY: History reviewed. No pertinent past medical history. FAMILY HISTORY: History reviewed. No pertinent family history. SOCIAL HISTORY: Social History Socioeconomic History Marital status: Legally Spouse name: Not on file Number of children: Not on file Years of education: Not on file Highest education level: Not on file Occupational History Not on file Tobacco Use Smoking status: Every Day Packs/day: .5 Types: Cigarettes Smokeless tobacco: Never Substance and Sexual Activity Alcohol use: Not on file Drug use: Never Sexual activity: Not on file Other Topics Concern Not on file Social History Narrative Not on file Social Determinants of Health Financial Resource Strain: Not on file Food Insecurity: Not on file Transportation Needs: Not on file Physical Activity: Not on file Stress: Not on file Social Connections: Not on file Intimate Partner Violence: Not on file Housing Stability: Not on file SURGICAL HISTORY: History reviewed. No pertinent surgical history. CURRENT MEDICATIONS: Home medications reviewed. ALLERGIES: Hydrocodone-acetaminophen and Penicillin g PHYSICAL EXAM: VITAL SIGNS: Visit Vitals Pulse 88 Temp 97.8 F (36.6 C) Resp 18 Ht 1.6 m (5' 3 ) Wt 113.4 kg (250 lb) SpO2 98% BMI 44.29 kg/m OB Status Postmenopausal Smoking Status Every Day BSA 2.24 m CONSTITUTIONAL: Awake, oriented, appears non-toxic HENT: Atraumatic, normocephalic, oral mucosa pink and moist, airway patent EYES: Conjunctiva clear NECK: Trachea midline, non-tender, supple BACK: Minimal bilateral low back tenderness, no CVA tenderness SKIN: Warm, Dry, No erythema, No rash EXTREMITIES: No clubbing, cyanosis, or edema NEUROLOGIC: Non-focal, CN 2-12 intact, patient ambulating without issue, no foot drop. Labs Reviewed - No data to display ED COURSE / MEDICAL DECISION MAKING: Patient presents with acute on chronic low back pain, exacerbated after long car ride yesterday. Isable to ambulate, no loss of bladder or bowel function, no saddle anesthesia. Discussed with attending who did evaluate patient [id number], developed plan for pain control here, will be given fentanyl dose here with Zofran. Being prescription for Percocet. Encourage rest hydration outpatient follow-up as discussed, close return precautions if symptoms get worse. Did discuss with attending, Allyson Griffiths DO, who did evaluate patient sgnl-ic-poat. Patient otherwise stable at this time, vital signs are stable, patient afebrile, and nontoxic in appearance.Attending physician available for immediate consultation throughout entire patient's stay. Decision to Disposition Home or Admit: Discharge FINAL IMPRESSION: 1. Bilateral low back pain [id number] Emergency department Note* Cheryl Joiner RN - 06/08/2023 5:39 PM EDT Pt arrives via triage for complaints of lower back apin. Pt states she has hx of bulging disc and states that she was in the car for a long time and thinks that it aggravated her pain more. [facility] [id number] History of Present illness Narrative* Elke Adams MD - 06/05/2023 8:00 AM EDT NEUROSURGERY EVALUATION NOTE Diagnosis Jerad was seen today for back pain. Diagnoses and all orders for this visit: Chronic back pain greater than 3 months duration - Referral to Psychology; Future Neuropathic pain - Referral to Psychology; Future Patient Discussion/Summary 1) We discussed the nature of spinal cord stimulation and the potential benefits of spinal cord stimulation over spine surgery and continued medical management. Given that you have persistent pain that appears to be neuropathic in etiology, without any concerning structural abnormality on imaging at this time, and given that you have failed extensive conservative management, you would be a great candidate for spinal cord stimulation. 2) We discussed the process of undergoing a spinal cord stimulator trial prior to an implant. We discussed the procedure, as well as the associated risks/benefits. We also discussed the different implant techniques, including a percutaneous approach with wire placement through a small needle vs a paddle lead approach via a bony opening called a laminotomy. Finally, we reviewed the different typesof spinal cord stimulation devices currently available. 3) Prior to proceeding with a trial, we will need a pain psychology evaluation. Once this is complete, we will proceed with preoperative lab work and scheduling for the next available date for surgery. Provider Impressions 48 y.o. female with chronic b/l LBP, as well as neuropathic LE pain, R>L, primarily in the anterior thighs and occas down to the feet; likely attributed to many years of working a physically demanding job; symptoms refractory to medical management. Patient is a good candidate for thoracic perc SCS trial, pending pain psych evaluation. History of Present Illness Chief Complaint: Chief Complaint Patient presents with Back Pain Disc L4-L5 HPI: Jerad Tracy is a 48 y.o. 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 Cam for consideration of spinal cord stimulation. Patient was evaluated by Dr. Cam in December 2022 for her symptoms, who reviewed imaging and did not feel surgery was indicated. As such, patient was recommended continued conservative management with PT and pain management, and was referred here. Patient also had a recent EMG of lower extremities reporting mild b/l S1 radiculopathy, L>R (EMG report not available for review today).In the interim, patient has had multiple presentations to the ED for exacerbation of her back pain symptoms. Patient presents today for neurosurgical evaluation and to discuss spinal cord stimulation. 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 Patient reports pain is primarily in b/l low back, which is chronic sharp, shooting and stabbing; ave 7.5/10 and worst 10/10 with bending, prolonged sitting, and activity. Pain also goes into b/l anterior thighs, R>L, that is a chronic painful tingling, ave 5/10, worst 8/10; occas down to b/l feet with prolonged standing ~2x/month. Patient reports occasnumbness from groin to buttocks that occurs with prolonged sitting, ~2x/week. Patient denies changes in b/b. Patient denies history of neck pain. Patient did PT in 08/2022, which exacerbated pain. Patient takes Motrin for pain, as well as heat application, which is not helpful, and is unable to take Tylenol due to history of liver disease. Patient reports that pain is only improved with going to the ED and receiving an injection, which lasts only for a few days. Patient does not currently follow with pain management. Patient was being prescribed opioid therapy by her PCP, whom recently left the practice, but she would like a more prison solution to her pain, and she is also scheduled to establish with a new physician. Patient was evaluated by neurosurgery, Dr. Cam, in 12/2022 and surgery was not recommended and was further referred here for consideration of spinal cord stimulation. 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 Previous History Past Medical History: Diagnosis Date Depression Past Surgical History: Procedure Laterality Date CHOLECYSTECTOMY DENTAL SURGERY Bilateral HYSTERECTOMY MYRINGOTOMY W/ TUBES Bilateral TONSILLECTOMY Social History Tobacco Use Smoking status: Every Day Types: Cigarettes Smokeless tobacco: Never Substance Use Topics Alcohol use: Yes Comment: Socially Drug use: Never Family History Problem Relation Name Age of Onset Lung disease Mother COPD Mother Lung disease Father Lung cancer Father Heart disease Father Allergies Allergen Reactions Hydrocodone Hives and Unknown Hydrocodone-Acetaminophen Hives Penicillin G Hives Penicillins Hives and Unknown Nabumetone Nausea/vomiting and Rash Current Outpatient Medications Medication Instructions cyclobenzaprine (FLEXERIL) 10 mg, oral, 3 times daily PRN FLUoxetine (PROZAC) 60 mg, oral, Daily glecaprevir-pibrentasvir (Mavyret) 100-40 mg tablet tablet 3 tablets, oral, Daily naloxone (NARCAN) 4 mg, nasal, As needed, May repeat every 2-3 minutes if needed, alternating nostrils, until medical assistance becomes available. omeprazole (PRILOSEC) 20 mg, oral, 2 times daily before meals, Do not crush or chew. oxyCODONE-acetaminophen (Percocet) 5-325 mg tablet 1 tablet, oral, 3 times daily PRN Vitals BP 133/88 Pulse 85 Resp 20 Ht 1.6 m (5' 3 ) Wt 113 kg (250 lb) BMI 44.29 kg/m Physical Exam Constitutional: Well appearing. No acute distress. Musculoskeletal: No visible deformity of joints and nails. Normal ROM. Orientation: Oriented to self, place, and time Language: Fluid speech and intact cognition CN 2: Normal CN 3, 4, and 6: Normal CN 5: Normal CN 7: Normal CN 8: Normal CN 9 and 10: Normal CN 11: Normal CN 12: Normal Muscle strength: 4+/5 R hip flex and knee ext (pain limited), otherwise 5/5 strength throughout. Muscle tone: No atrophy, abnormal movements, flaccidity, cogwheeling or spasticity. Gait and station: antalgic gait Sensation: Reduced sensation b/l anterior thighs, otherwise grossly intact throughout all dermatomes. No allodynia. Reflexes: Brisk 3+ L patellar, otherwise symmetric and normal deep tendon reflexes throughout. Negative Kebede's sign. No clonus at ankles. Coordination: No dysmetria. Mood and Affect: Appropriate mood and affect. Results I personally reviewed the lumbar MRI from 10/31/22 demonstrating mild disc bulge and foraminal narrowing at L4-L5, L>R, without evidence of nerve impingement, and no significant central canal narrowing. documented in this [facility] Work Phone: [phone] Hospital Discharge instructions Patient Education 06/03/2023 20:00:59 Acute Back Pain, Adult Acute Back Pain, Adult Acute back pain is sudden and usually short-lived. It is often caused by an injury to the muscles and tissues in the back. The injury may result from: A muscle, tendon, or ligament getting overstretched or torn. Ligaments are tissues that connect bones to each other. Lifting something improperly can cause a back strain. Wear and tear (degeneration) of the spinal disks. Spinal disks are circular tissue that provide cushioning between the bones of the spine (vertebrae). Twisting motions, such as while playing sports or doing yard work. A hit to the back. Arthritis. You may have a physical exam, lab tests, and imaging tests to find the cause of your pain. Acute back pain usually goes away with rest and home care. Follow these instructions at home: Managing pain, stiffness, and swelling Take dhce-hom-ewvkxnw and prescription medicines only as told by your health care provider. Treatment may include medicines for pain and inflammation that are taken by mouth or applied to the skin, or muscle relaxants. Your health care provider may recommend applying ice during the first 24 48 hours after your pain starts. To do this: ?Put ice in a plastic bag. ?Place a towel between your skin and the bag. ?Leave the ice on for 20 minutes, 2 3 times a day. ?Remove the ice if your skin turns bright red. This is very important. If you cannot feel pain, heat, or cold, you have a greater risk of damage to the area. If directed, apply heat to the affected area as often as told by your health care provider. Use theheat source that your health care provider recommends, such as a moist heat pack or a heating pad. ?Place a towel between your skin and the heat source. ?Leave the heat on for 20 30 minutes. ?Remove the heat if your skin turns bright red. This is especially important if you are unable to feel pain, heat, or cold. You have a greater risk of getting burned. Activity Do not stay in bed. Staying in bed for more than 1 2 days can delay your recovery. Sit up and stand up straight. Avoid leaning forward when you sit or hunching over when you stand. ?If you work at a desk, sit close to it so you do not need to lean over. Keep your chin tucked in. Keep your neck drawn back, and keep your elbows bent at a 90-degree angle (right angle). ?Sit high and close to the steering wheel when you drive. Add lower back (lumbar) support to your car seat, if needed. Take short walks on even surfaces as soon as you are able. Try to increase the length of time you walk each day. Do not sit, drive, or intelligence consultant one place for more than 30 minutes at a time. Sitting or standing for long periods of time can put stress on your back. Do not drive or use heavy machinery while taking prescription pain medicine. Use proper lifting techniques. When you bend and lift, use positions that put less stress on your back: ?Bend your knees. ?Keep the load close to your body. ?Avoid twisting. Exercise regularly as told by your health care provider. Exercising helps your back heal faster andhelps prevent back injuries by keeping muscles strong and flexible. Work with a physical therapist to make a safe exercise program, as recommended by your health care provider. Do any exercises as told by your physical therapist. Lifestyle Maintain a healthy weight. Extra weight puts stress on your back and makes it difficult to have good posture. Avoid activities or situations that make you feel anxious or stressed. Stress and anxiety increase muscle tension and can make back pain worse. Learn ways to manage anxiety and stress, such as through exercise. General instructions Sleep on a firm mattress in a comfortable position. Try lying on your side with your knees slightlybent. If you lie on your back, put a pillow under your knees. Keep your head and neck in a straight line with your spine (neutral position) when using electronicequipment like smartphones or pads. To do this: ?Raise your smartphone or pad to look at it instead of bending your head or neck to look down. ?Put the smartphone or pad at the level of your face while looking at the screen. Follow your treatment plan as told by your health care provider. This may include: ?Cognitive or behavioral therapy. ?Acupuncture or massage therapy. ?Meditation or yoga. Contact a health care provider if: You have pain that is not relieved with rest or medicine. You have increasing pain going down into your legs or buttocks. Your pain does not improve after 2 weeks. You have pain at night. You lose weight without trying. You have a fever or chills. You develop nausea or vomiting. You develop abdominal pain. Get help right away if: You develop new bowel or bladder control problems. You have unusual weakness or numbness in your arms or legs. You feel faint. These symptoms may represent a serious problem that is an emergency. Do not wait to see if the symptoms will go away. Get medical help right away. Call your local emergency services (911 in the [place] Do not drive yourself to the hospital. Summary Acute back pain is sudden and usually short-lived. Use proper lifting techniques. When you bend and lift, use positions that put less stress on your back. Take qjsw-qsw-ooplgsc and prescription medicines only as told by your health care provider, and apply heat or ice as told. This information is not intended to replace advice given to you by your health care provider. Make sure you discuss any questions you have with your health care provider. Document Revised: 06/02/2021 Document Reviewed: 06/02/2021 [employer] Patient Education 2022 [email or web address]. 06/03/2023 20:00:59 Chronic Back Pain, Mhcs-ju-Zbrv Chronic Back Pain When back pain lasts longer than 3 months, it is called chronic back pain. Pain may get worse at certain times (flare-ups). There are things you can do at home to manage your pain. Follow these instructions at home: Pay attention to any changes in your symptoms. Take these actions to help with your pain: Managing pain and stiffness If told, put ice on the painful area. Your doctor may tell you to use ice for 24 48 hours after theflare-up starts. To do this: ?Put ice in a plastic bag. ?Place a towel between your skin and the bag. ?Leave the ice on for 20 minutes, 2 3 times a day. If told, put heat on the painful area. Do this as often as told by your doctor. Use the heat sourcethat your doctor recommends, such as a moist heat pack or a heating pad. ?Place a towel between your skin and the heat source. ?Leave the heat on for 20 30 minutes. ?Take off the heat if your skin turns bright red. This is especially important if you are unable tofeel pain, heat, or cold. You may have a greater risk of getting burned. Soak in a warm bath. This can help relieve pain. Activity Avoid bending and other activities that make pain worse. When standing: ?Keep your upper back and neck straight. ?Keep your shoulders pulled back. ?Avoid slouching. When sitting: ?Keep your back straight. ?Relax your shoulders. Do not round your shoulders or pull them backward. Do not sit or intelligence consultant one place for long periods of time. Take short rest breaks during the day. Lying down or standing is usually better than sitting. Resting can help relieve pain. When sitting or lying down for a long time, do some mild activity or stretching. This will help to prevent stiffness and pain. Get regular exercise. Ask your doctor what activities are safe for you. Do not lift anything that is heavier than 10 lb (4.5 kg) or the limit that you are told, until yourdoctor says that it is safe. To prevent injury when you lift things: ?Bend your knees. ?Keep the weight close to your body. ?Avoid twisting. Sleep on a firm mattress. Try lying on your side with your knees slightly bent. If you lie on your back, put a pillow under your knees. Medicines Treatment may include medicines for pain and swelling taken by mouth or put on the skin, prescription pain medicine, or muscle relaxants. Take ucof-upr-islhrnh and prescription medicines only as told by your doctor. Ask your doctor if the medicine prescribed to you: ?Requires you to avoid driving or using machinery. ?Can cause trouble pooping (constipation). You may need to take these actions to prevent or treat trouble pooping: ?Drink enough fluid to keep your pee (urine) pale yellow. ?Take isae-woc-tpwpsik or prescription medicines. ?Eat foods that are high in fiber. These include beans, whole grains, and fresh fruits and vegetables. ?Limit foods that are high in fat and sugars. These include fried or sweet foods. General instructions Do not use any products that contain nicotine or tobacco, such as cigarettes, e- cigarettes, and chewing tobacco. If you need help quitting, ask your doctor. Keep all follow-up visits as told by your doctor. This is important. Contact a doctor if: Your pain does not get better with rest or medicine. Your pain gets worse, or you have new pain. You have a high fever. You lose weight very quickly. You have trouble doing your normal activities. Get help right away if: One or both of your legs or feet feel weak. One or both of your legs or feet lose feeling (have numbness). You have trouble controlling when you poop (have a bowel movement) or pee (urinate). You have bad back pain and: ?You feel like you may vomit (nauseous), or you vomit. ?You have pain in your belly (abdomen). ?You have shortness of breath. ?You faint. Summary When back pain lasts longer than 3 months, it is called chronic back pain. Pain may get worse at certain times (flare-ups). Use ice and heat as told by your doctor. Your doctor may tell you to use ice after flare-ups. This information is not intended to replace advice given to you by your health care provider. Make sure you discuss any questions you have with your health care provider. Document Revised: 04/20/2020 Document Reviewed: 04/20/2020 [employer] Patient Education 2022 [email or web address]. Follow Up Care 06/03/2023 18:58:41 With:Cheyanne Rosas Address: [facility] [place] [phone] Business (1) When:06/06/2023 19:33:42 Comments:Follow-up with your primary care provider in 3 to 5 days. If symptoms worsen, do not improve, or new symptoms arise please report back to emergency department for further evaluation. [facility]03-11-2024 Evaluation + Plan noteExtracted from: Title:ED Note Author:Landon Tidwell PA-C te:06/03/23 Chronic back pain (M54.9: Do rsalgia, unspecified) Other chronic pain (G89.29: Other chronic pain) Orders: ibuprofen, 800 mg = 1 tab(s), Oral, q8hr, # 30 tab(s), Refills(s) 0, Pharmacy: [id number], 160, cm, 03/23/23 12:50:00 EST, Height/Length Dosing, 109, kg, 03/23/23 12:50:00 EST, Weight Dosing ketorolac, 30 mg = 1 mL, Injection, IntraMuscular, Once, Stop date 06/03/23 19:31:00 EDT, STAT, Start date 06/03/23 19:31:00 EDT, 06/03/23 19:31:00 EDT morphine, 4 mg = 1 mL, Injection, IntraMuscular, Once, Stop date 06/03/23 19:30:00 EDT, STAT, Start date 06/03/23 19:30:00 EDT, 06/03/23 19:30:00 EDT Future Appointments Appointment Date:06/13/2023 07:40:00 AM Scheduled Provider:Cheyanne Rincon Location:[facility] Appointment Type: New Patient - Adult [facility]03-08-2024 Hospital Discharge instructions Patient Education 05/31/2023 18:15:18 Abdominal Pain, Adult Abdominal Pain, Adult Pain in the abdomen (abdominal pain) can be caused by many things. Often, abdominal pain is not serious and it gets better with no treatment or by being treated at home. However, sometimes abdominal pain is serious. Your health care provider will ask questions about your medical history and do a physical exam to try to determine the cause of your abdominal pain. Follow these instructions at home: Medicines Take dvwd-akz-xepamsj and prescription medicines only as told by your health care provider. Do not take a laxative unless told by your health care provider. General instructions Watch your condition for any changes. Drink enough fluid to keep your urine pale yellow. Keep all follow-up visits as told by your health care provider. This is important. Contact a health care provider if: Your abdominal pain changes or gets worse. You are not hungry or you lose weight without trying. You are constipated or have diarrhea for more than 2 3 days. You have pain when you urinate or have a bowel movement. Your abdominal pain wakes you up at night. Your pain gets worse with meals, after eating, or with certain foods. You are vomiting and cannot keep anything down. You have a fever. You have blood in your urine. Get help right away if: Your pain does not go away as soon as your health care provider told you to expect. You cannot stop vomiting. Your pain is only in areas of the abdomen, such as the right side or the left lower portion of the abdomen. Pain on the right side could be caused by appendicitis. You have bloody or black stools, or stools that look like tar. You have severe pain, cramping, or bloating in your abdomen. You have signs of dehydration, such as: ?Dark urine, very little urine, or no urine. ?Cracked lips. ?Dry mouth. ?Sunken eyes. ?Sleepiness. ?Weakness. You have trouble breathing or chest pain. Summary Often, abdominal pain is not serious and it gets better with no treatment or by being treated at home. However, sometimes abdominal pain is serious. Watch your condition for any changes. Take xrln-kez-brfkybx and prescription medicines only as told by your health care provider. Contact a health care provider if your abdominal pain changes or gets worse. Get help right away if you have severe pain, cramping, or bloating in your abdomen. This information is not intended to replace advice given to you by your health care provider. Make sure you discuss any questions you have with your health care provider. Document Revised: 04/29/2020 Document Reviewed: 07/20/2019 [employer] Patient Education 2022 [email or web address]. Follow Up Care 05/31/2023 16:33:31 With:Cheyanne Rosas Address: [address] [place] [phone] [facility] (1) When:06/03/2023 18:09:48 [facility]03-03-2024 Hospital Discharge instructions Patient Education 05/26/2023 20:04:37 Lumbosacral Strain Lumbosacral Strain Lumbosacral strain is an injury that causes pain in the lower back (lumbosacral spine). This injuryusually happens from overstretching the muscles or ligaments along your spine. Ligaments are cord-like tissues that connect bones to other bones. A strain can affect one or more muscles or ligaments. What are the causes? This condition may be caused by: A hard, direct hit to the back. Overstretching the lower back muscles. This may result from: ?A fall. ?Lifting something heavy. ?Repetitive movements such as bending or crouching. What increases the risk? The following factors may make you more likely to develop this condition: Participating in sports or activities that involve: ?A sudden twist of the back. ?Pushing or pulling motions. Being overweight or obese. Having poor strength and flexibility, especially tight hamstrings or weak muscles in the back or abdomen. Having too much of a curve in the lower back. Having a pelvis that is tilted forward. What are the signs or symptoms? The main symptom of this condition is pain in the lower back, at the site of the strain. Pain may also be felt down one or both legs. How is this diagnosed? This condition is diagnosed based on your symptoms, your medical history, and a physical exam. During the physical exam, your health care provider may push on certain areas of your back to find the source of your pain. You may be asked to bend forward, backward, and side to side to check your pain and range of motion. You may also have imaging tests, such as X-rays and an MRI. How is this treated? This condition may be treated by: Applying heat and cold on the affected area. Taking medicines to help relieve pain and relax your muscles. Taking NSAIDs, such as ibuprofen, to help reduce swelling and discomfort. Doing stretching and strengthening exercises for your lower back. Symptoms usually improve within several weeks of treatment. However, recovery time varies. When your symptoms improve, gradually return to your normal routine as soon as possible to reduce pain, avoid stiffness, and keep muscle strength. Follow these instructions at home: Medicines Take jdwl-iyi-jczffzi and prescription medicines only as told by your health care provider. Ask your health care provider if the medicine prescribed to you: ?Requires you to avoid driving or using heavy machinery. ?Can cause constipation. You may need to take these actions to prevent or treat constipation: ?Drink enough fluid to keep your urine pale yellow. ?Take xjve-tqy-qczuyvo or prescription medicines. ?Eat foods that are high in fiber, such as beans, whole grains, and fresh fruits and vegetables. ?Limit foods that are high in fat and processed sugars, such as fried or sweet foods. Managing pain, stiffness, and swelling If directed, put ice on the injured area. To do this: ?Put ice in a plastic bag. ?Place a towel between your skin and the bag. ?Leave the ice on for 20 minutes, 2 3 times a day. If directed, apply heat on the affected area as often as told by your health care provider. Use theheat source that your health care provider recommends, such as a moist heat pack or a heating pad. ?Place a towel between your skin and the heat source. ?Leave the heat on for 20 30 minutes. ?Remove the heat if your skin turns bright red. This is especially important if you are unable to feel pain, heat, or cold. You may have a greater risk of getting burned. Activity Rest as told by your health care provider. Do not stay in bed. Staying in bed for more than 1 2 days can delay your recovery. Return to your normal activities as told by your health care provider. Ask your health care provider what activities are safe for you. Avoid activities that take a lot of energy for as long as told by your health care provider. Do exercises as told by your health care provider. This includes stretching and strengthening exercises. General instructions Sit up and stand up straight. Avoid leaning forward when you sit, or hunching over when you stand. Do not use any products that contain nicotine or tobacco, such as cigarettes, e- cigarettes, and chewing tobacco. If you need help quitting, ask your health care provider. Keep all follow-up visits as told by your health care provider. This is important. How is this prevented? Use correct form when playing sports and lifting heavy objects. Use good posture when sitting and standing. Maintain a healthy weight. Sleep on a mattress with medium firmness to support your back. Do at least 150 minutes of moderate-intensity exercise each week, such as brisk walking or water aerobics. Try a form of exercise that takes stress off your back, such as swimming or stationary cycling. Maintain physical fitness, including: ?Strength. ?Flexibility. Contact a health care provider if: Your back pain does not improve after several weeks of treatment. Your symptoms get worse. Get help right away if: Your back pain is severe. You cannot stand or walk. You have difficulty controlling when you urinate or when you have a bowel movement. You feel nauseous or you vomit. Your feet or legs get very cold, turn pale, or look blue. You have numbness, tingling, weakness, or problems using your arms or legs. You develop any of the following: ?Shortness of breath. ?Dizziness. ?Pain in your legs. ?Weakness in your buttocks or legs. Summary Lumbosacral strain is an injury that causes pain in the lower back (lumbosacral spine). This injury usually happens from overstretching the muscles or ligaments along your spine. This condition may be caused by a direct hit to the lower back or by overstretching the lower back muscles. Symptoms usually improve within several weeks of treatment. This information is not intended to replace advice given to you by your health care provider. Make sure you discuss any questions you have with your health care provider. Document Revised: 06/18/2022 Document Reviewed: 08/04/2019 [employer] Patient Education 2022 [email or web address]. Follow Up Care 05/26/2023 19:25:03 With:Ralph BEYER, VANESSA Aaron, MED Address: [facility] [place], [facility] [place] [phone]- When:05/29/2023 [facility]03-03-2024 Evaluation + Plan noteExtracted from: Title:ED Note Author:Susu Lamar PA-C Date :05/26/23 1. Lumbar strain (S39.012A: Strain of muscle, fascia and tendon of lower back, initial encounter) Ordered: tizanidine, 4 mg = 1 tab(s), Oral, q8hr, X 5 day(s), # 15 tab(s), Refills(s) 0, Pharmacy: [id number], 160, cm, 05/26/23 19:39:00 EST, Height/Length Dosing, 120, kg, 05/26/23 19:39:00 EST, Weight Dosing Orders: ketorolac, 15 mg = 0.5 mL, Injection, IntraMuscular, Once, Stop date 05/26/23 20:00:00 EST, STAT, Start date 05/26/23 20:00:00 EST, 05/26/23 20:00:00 EST lidocaine topical, 1 patch(es), Patch, TransDermal, Once, Stop date 05/26/23 20:01:00 EST, STAT, Start date 05/26/23 20:01:00 EST orphenadrine, 60 mg = 2 mL, Injection, IntraMuscular, Once, Stop date 05/26/23 20:01:00 EST, STAT, Start date 05/26/23 20:01:00 EST, 05/26/23 20:01:00 EST UA With Cult Reflex Future Appointments Appointment Date:06/13/2023 07:40:00 AM Scheduled Provider:Cheyanne Rincon Location:[facility] Appointment Type:FM New Patient - Adult [facility]03-01-2024 Hospital Discharge instructions Patient Education 05/24/2023 20:43:51 Chronic Back Pain, Bxfc-ew-Brkc Chronic Back Pain When back pain lasts longer than 3 months, it is called chronic back pain. Pain may get worse at certain times (flare-ups). There are things you can do at home to manage your pain. Follow these instructions at home: Pay attention to any changes in your symptoms. Take these actions to help with your pain: Managing pain and stiffness If told, put ice on the painful area. Your doctor may tell you to use ice for 24 48 hours after theflare-up starts. To do this: ?Put ice in a plastic bag. ?Place a towel between your skin and the bag. ?Leave the ice on for 20 minutes, 2 3 times a day. If told, put heat on the painful area. Do this as often as told by your doctor. Use the heat sourcethat your doctor recommends, such as a moist heat pack or a heating pad. ?Place a towel between your skin and the heat source. ?Leave the heat on for 20 30 minutes. ?Take off the heat if your skin turns bright red. This is especially important if you are unable tofeel pain, heat, or cold. You may have a greater risk of getting burned. Soak in a warm bath. This can help relieve pain. Activity Avoid bending and other activities that make pain worse. When standing: ?Keep your upper back and neck straight. ?Keep your shoulders pulled back. ?Avoid slouching. When sitting: ?Keep your back straight. ?Relax your shoulders. Do not round your shoulders or pull them backward. Do not sit or intelligence consultant one place for long periods of time. Take short rest breaks during the day. Lying down or standing is usually better than sitting. Resting can help relieve pain. When sitting or lying down for a long time, do some mild activity or stretching. This will help to prevent stiffness and pain. Get regular exercise. Ask your doctor what activities are safe for you. Do not lift anything that is heavier than 10 lb (4.5 kg) or the limit that you are told, until yourdoctor says that it is safe. To prevent injury when you lift things: ?Bend your knees. ?Keep the weight close to your body. ?Avoid twisting. Sleep on a firm mattress. Try lying on your side with your knees slightly bent. If you lie on your back, put a pillow under your knees. Medicines Treatment may include medicines for pain and swelling taken by mouth or put on the skin, prescription pain medicine, or muscle relaxants. Take rneo-sxw-ijsjfuh and prescription medicines only as told by your doctor. Ask your doctor if the medicine prescribed to you: ?Requires you to avoid driving or using machinery. ?Can cause trouble pooping (constipation). You may need to take these actions to prevent or treat trouble pooping: ?Drink enough fluid to keep your pee (urine) pale yellow. ?Take dgke-ars-vtfwper or prescription medicines. ?Eat foods that are high in fiber. These include beans, whole grains, and fresh fruits and vegetables. ?Limit foods that are high in fat and sugars. These include fried or sweet foods. General instructions Do not use any products that contain nicotine or tobacco, such as cigarettes, e- cigarettes, and chewing tobacco. If you need help quitting, ask your doctor. Keep all follow-up visits as told by your doctor. This is important. Contact a doctor if: Your pain does not get better with rest or medicine. Your pain gets worse, or you have new pain. You have a high fever. You lose weight very quickly. You have trouble doing your normal activities. Get help right away if: One or both of your legs or feet feel weak. One or both of your legs or feet lose feeling (have numbness). You have trouble controlling when you poop (have a bowel movement) or pee (urinate). You have bad back pain and: ?You feel like you may vomit (nauseous), or you vomit. ?You have pain in your belly (abdomen). ?You have shortness of breath. ?You faint. Summary When back pain lasts longer than 3 months, it is called chronic back pain. Pain may get worse at certain times (flare-ups). Use ice and heat as told by your doctor. Your doctor may tell you to use ice after flare-ups. This information is not intended to replace advice given to you by your health care provider. Make sure you discuss any questions you have with your health care provider. Document Revised: 04/20/2020 Document Reviewed: 04/20/2020 [employer] Patient Education 2022 [email or web address]. Follow Up Care 05/24/2023 18:42:41 With:Cheyanne Rosas Address: [address] [facility], [facility] [place] [phone] Business (1) When:Within 3 Day(s) [facility]03-01-2024 Evaluation + Plan noteExtracted from: Title:ED Note Author:Yaw MILES, Landon Celis te:05/24/23 Lumbago (M54.50: Low back pa in, unspecified) Orders: ketorolac, 60 mg = 2 mL, Injection, IntraMuscular, Once, Stop date 05/24/23 20:27:00 EST, STAT, Start date 05/24/23 20:27:00 EST, 05/24/23 20:27:00 EST morphine, 4 mg = 1 mL, Injection, IntraMuscular, Once, Stop date 05/24/23 20:28:00 EST, STAT, Start date 05/24/23 20:28:00 EST, 05/24/23 20:28:00 EST triamcinolone, 40 mg = 1 mL, Susp-Inj, IntraMuscular, Once, Stop date 05/24/23 20:28:00 EST, STAT, Start date 05/24/23 20:28:00 EST, 05/24/23 20:28:00 EST Future Appointments Appointment Date:06/13/2023 07:40:00 AM Scheduled Provider:Cheyanne Rincon Location:[facility] Appointment Type:FM New Patient - Adult [facility]02-26-2024 History of Present illness Narrative* Belkis Hernandez, - 05/20/2023 8:15 AM ESTAssociated Order(s): Hand / UE Inj/Asp: R thumb CMC Post-Procedure Diagnose(s): CMC arthritis History present illness: Patient presents today for evaluation status post mechanical fall down 2 stairs that occurred on 11 May 2023. She was walking the dog in the snow. She slipped and fell. Lwfsq-unqd-yoptnfha and otherwise healthy. She describes right radial wrist pain along with pain to the right thumb at the CMC joint. Past medical history: The patient's past medical history, family history, social history, and review of systems were documented on the patient medical intake. The updated data was reviewed in the electronic medical record. History is negative except otherwise stated in history of present illness. Physical examination: General: Alert and oriented to person, place, and time. No acute distress and breathing comfortably: Pleasant and cooperative with examination. HEENT: Head is normocephalic and atraumatic. Neck: Supple, no visible swelling. Cardiovascular: No palpable tachycardia Lungs: No audible wheezing or labored breathing Abdomen: Nondistended. Extremities: Evaluation of the right upper extremity finds the patient had palpable radial artery at the wrist with brisk capillary refill to all digits. Patient has intact sensation to axillary radial median and ulnar nerves. There are no open wounds. There are no signs of infection. There is no evidence of lymphedema or lymphatic streaking. The patient has supple compartments to right arm forearm and hand. Tenderness to right wrist at anatomic snuffbox. More pronounced tenderness to right thumb CMC joint. Radiology: X-rays of the right wrist taken in the office today show no acute fracture or dislocation. Arthritic changes right thumb at CMC joint. Assessment: Right wrist sprain with concern for occult scaphoid fracture. Right thumb CMC sprain exacerbating baseline of arthritic change. Plan: Treatment options were discussed. Patient has a Velcro thumb spica splint. We recommend for continuance of nonweightbearing and to wear the splint like a cast only coming out for skin rest and bathing. The patient is agreeable with this strategy. Provide to see back in 2 weeks for x-rays of the right wrist including 3 standard views along with a dedicated scaphoid view. Regarding the flareup of her baseline of right thumb CMC arthritis secondary to injury and sprain she elects for intra-articular steroid injection to the right thumb CMC joint. She tolerated that well. Procedure: Hand / UE Inj/Asp: R thumb CMC for osteoarthritis on 05/20/2023 8:27 AM Indications: pain Details: 25 G needle, dorsal approach Medications: 5 mg triamcinolone acetonide 10 mg/mL; 0.5 mL lidocaine 10 mg/mL (1 %) Outcome: tolerated well, no immediate complications Right Thumb Carpometacarpal Joint Injection: It was explained to the patient that the risks of a steroid injection include but are not limited to infection, local skin irritation, skin atrophy, calcification, continued pain and discomfort, elevated blood sugar, burning, failure to relieve pain, andpossible late infection. The patient verbalized good insight and verbalized consent for the injection. It was further explained that the postinjection discomfort can be alleviated with additional medications, ice, elevation, and rest over the first 24 hours, and that these modalities are recommended. Using aseptic technique, a solution containing 0.5 cc of 5 mg of Kenalog and 0.5 mL of 1% lidocainewithout epinephrine was injected intraarticularly to the right thumb carpometacarpal joint. Digitalpalpation was used to localize the CMC articulation about the dorsal radial aspect of the joint. Gentle traction was then imparted to the thumb distally and a 25-gauge needle was advanced through theskin, subcutaneous tissue and capsule. The injection was then administered and the patient tolerated the injection well. A band-aid was then placed. It should be noted that ethyl chloride spray was used to make the injection delivery more comfortable for the patient. Procedure, treatment alternatives, risks and benefits explained, specific risks discussed. Consent was given by the patient. Immediately prior to procedure a time out was called to verify the correctpatient, procedure, equipment, it desktop support specialist and site/side marked as required. Patient was prepped and draped in the usual sterile fashion. documented in this [facility] Work Phone: [phone]) 741-209702-22-2024 Hospital Discharge instructions Patient Education 05/16/2023 17:04:02 Thumb Fracture Thumb Fracture A thumb fracture is a break in one of the two bones in your thumb. The bone that goes from the tip of your thumb to the first joint in your thumb is called the distal phalanx. The bone that goes fromthe first joint to the joint at the base of your thumb is called the proximal phalanx. Fractures that happen at the joints of your thumb are harder to treat. A broken thumb is more serious than a break in one of your other fingers because you need your thumb for grasping. Thumb fractures are also more likely to lead to pain and stiffness years after healing (arthritis). What are the causes? A thumb fracture may be caused by: A hard, direct hit to your thumb. Your thumb being pulled out of place. What increases the risk? You may be more likely to break your thumb if you: Participate in sports such as wrestling, hockey, football, or skiing. Have a condition that causes your bones to become thin and brittle (osteoporosis). What are the signs or symptoms? Symptoms may include: Sudden severe pain. Swelling. Bruising. Not being able to move the thumb. An abnormal shape of the thumb (deformity). Numbness or coldness. A red, black, or blue thumbnail. How is this diagnosed? This condition may be diagnosed based on: Your symptoms and medical history. A physical exam. Imaging studies such as X-ray, ultrasound, or MRI. How is this treated? Treatment for this condition depends on the severity of the fracture. At first, you may need to wear a padded splint until you can get a cast or have surgery. The paddedsplint protects your thumb and keeps it from moving (immobilization). If the broken pieces of your bone line up with each other, you will need to wear a splint or a castfor up to 4 6 weeks. If your fracture is severe, your health care provider will need to align the bone pieces manually or surgically. Your health care provider may: ?Move the bones back into position without surgery (closed reduction). ?Do surgery to align the fracture and put in metal screws, plates, or wires to hold the bone piecesin place (open reduction and internal fixation, ORIF). ?Do surgery to align the fracture and put in pins that are attached to a stabilizing bar outside your skin to hold the bone pieces in place (external fixation). In all cases, treatment may involve: ?Wearing a splint or cast for up to 6 weeks. ?Follow-up visits with your health care provider and X-rays to make sure you are healing correctly. ?Doing exercises to restore full movement and strength to your thumb (physical therapy) after your cast is removed. Follow these instructions at home: If you have a splint: Wear the splint as told by your health care provider. Remove it only as told by your health care provider. Do not put pressure on any part of the splint until it is fully hardened. This may take several hours. Check the skin around the splint every day. Tell your health care provider about any concerns. Loosen the splint if your thumb or fingers tingle, become numb, or turn cold and blue. Keep the splint clean and dry. If you have a cast: Do not put pressure on any part of the cast until it is fully hardened. This may take several hours. Do not stick anything inside the cast to scratch your skin. Doing that increases your risk of infection. Check the skin around the cast every day. Tell your health care provider about any concerns. You may put lotion on dry skin around the edges of the cast. Do not put lotion on the skin underneath the cast. Keep the cast clean and dry. Bathing Do not take baths, swim, or use a hot tub until your health care provider approves. Ask your healthcare provider if you may take showers. You may only be allowed to take sponge baths. If the splint or cast is not waterproof: ?Do not let it get wet. ?Cover it with a watertight covering when you take a bath or shower. Managing pain, stiffness, and swelling If directed, put ice on your thumb. To do this: ?If you have a removable splint, remove it as told by your health care provider. ? Put ice in a plastic bag. ?Place a towel between your skin and the bag, or between your cast and the bag. ?Leave the ice on for 20 minutes, 2 3 times a day. ?Remove the ice if your skin turns bright red. This is very important. If you cannot feel pain, heat, or cold, you have a greater risk of damage to the area. Move your thumb and fingers often to reduce stiffness and swelling. Raise (elevate) your hand above the level of your heart while you are sitting or lying down. Activity Return to your normal activities as told by your health care provider. Ask your health care provider what activities are safe for you. After your cast is removed, do physical therapy exercises as directed. Your health care provider may recommend that you: ?Move your thumb in circles. ?Touch your thumb to your pinky finger. ?Do these exercises several times a day. Ask your health care provider if you may use a hand clinical program director to strengthen your muscles. If your thumb feels stiff while you are exercising it, try doing the exercises while soaking your hand in warm water. General instructions Take etkt-qqu-cnjfpjw and prescription medicines only as told by your health care provider. Ask your health care provider when it is safe to drive if you have a splint or cast on your thumb. Do not use any products that contain nicotine or tobacco. These products include cigarettes, chewing tobacco, and vaping devices, such as e-cigarettes. These can delay bone healing. If you need help quitting, ask your health care provider. Keep all follow-up visits. This is important. Contact a health care provider if: You have pain that gets worse. You have a fever. You have a bad smell coming from your cast or splint. Get help right away if: Your thumb feels numb, tingles, turns cold, or turns blue. You have redness or swelling that gets worse. You have severe pain. Summary A thumb fracture is a break in one of the two bones in your thumb. Treatment involves wearing a splint or cast to keep the thumb from moving until it heals. Sometimessurgery is needed. Make sure you understand and follow all of your health care provider's home care instructions. This information is not intended to replace advice given to you by your health care provider. Make sure you discuss any questions you have with your health care provider. Document Revised: 01/17/2021 Document Reviewed: 01/17/2021 [employer] Patient Education 2022 [email or web address]. 05/16/2023 17:04:02 Cast or Splint Care, Adult Cast or Splint Care, Adult Casts and splints are supports that are worn to protect broken bones and other injuries. A cast or splint may hold a bone still and in the correct position while it heals. Casts and splints may also help with pain, swelling, and muscle spasms. A cast is a hardened support that is usually made of fiberglass or plaster. It is custom-fit to thebody and offers more protection than a splint. Most casts cannot be taken off and put back on. A splint is a type of soft support that is usually made from cloth and elastic. It can be adjusted or taken off as needed. Often, when a bone is broken, a splint is put on until the swelling goes down, and then the splint is replaced by a cast. You may need a cast or a splint if you: Have a broken bone. Have a soft-tissue injury. Need to keep an injured body part from moving (keep it immobile) after surgery. What are the risks? In some cases, wearing a cast or splint can cause a reduced blood supply to the wrist or hand or tothe foot and toes. This can happen if there is a lot of swelling or if the cast or splint is too tight. Limited blood supply results in a condition called compartment syndrome and can cause permanentdamage. Symptoms include: Pain that is getting worse. Numbness and tingling. Changes in skin color, including paleness or a bluish color. Cold fingers or toes. Other complications of wearing a cast or splint can include: Skin irritation that can cause itching, rash, skin sores, or skin infection. Limb stiffness or weakness. How to care for a nonremovable cast or splint Do not put pressure on any part of the cast or splint until it is fully hardened. This may take several hours. Check the skin around the cast or splint every day. Tell your health care provider about any concerns. Do not stick anything inside the cast or splint to scratch your skin. Doing that increases your risk of infection. You may put lotion on dry skin around the edges of the cast or splint. Do not put lotion on the skin underneath the cast or splint. Keep the cast or splint clean and dry. How to care for a removable splint Wear the splint as told by your health care provider. Remove it only as told by your health care provider. Check the skin around the splint every day. Tell your health care provider about any concerns. Loosen the splint if your fingers tingle, become numb, or turn cold and blue. Keep the splint clean and dry. Clean your splint as told by your health care provider. Use mild soap and water and let it air-dry. Do not use heat on your splint. Follow these instructions at home: Bathing Do not take baths, swim, or use a hot tub until your health care provider approves. Ask your healthcare provider if you may take showers. You may only be allowed to take sponge baths. If your cast or splint is not waterproof: ?Do not let it get wet. ?Cover it with a watertight covering when you take a bath or shower. Managing pain, stiffness, and swelling If directed, put ice on the affected area. To do this: ?If you have a removable cast or splint, remove it as told by your health care provider. ?Put ice in a plastic bag. ?Place a towel between your skin and the bag or between your cast and the bag. ?Leave the ice on for 20 minutes, 2 3 times a day. ?Remove the ice if your skin turns bright red. This is very important. If you cannot feel pain, heat, or cold, you have a greater risk of damage to the area. Move your fingers or toes often to reduce stiffness and swelling. Raise (elevate) the injured area above the level of your heart while you are sitting or lying down. Safety Do not use the injured limb to support your body weight until your health care provider says that you can. Use crutches or other assistive devices as told by your health care provider. Ask your health care provider when it is safe to drive if you have a cast or splint on part of yourbody. General instructions Take vghf-fsj-ltdwsen and prescription medicines only as told by your health care provider. Return to your normal activities as told by your health care provider. Ask your health care provider what activities are safe for you. Keep all follow-up visits. This is important. Contact a health care provider if: The skin around the cast or splint gets red or raw. The skin under the cast is extremely itchy or painful. Your cast or splint: ?Gets damaged. ?Feels very uncomfortable. ?Is too tight or too loose. Your cast becomes wet or develops a soft spot or area. You notice a bad smell coming from under your cast. You get an object stuck under your cast. There is fluid leaking through the cast. Get help right away if: You develop any symptoms of compartment syndrome, such as: ?Severe pain or pressure under the cast. ?Numbness, tingling, coldness, or pale or bluish skin. The part of your body above or below the cast is swollen and discolored. You cannot feel or move your fingers or toes. You have trouble breathing or shortness of breath. You have chest pain. Your pain gets worse. These symptoms may represent a serious problem that is an emergency. Do not wait to see if the symptoms will go away. Get medical help right away. Call your local emergency services (911 in the [place] Do not drive yourself to the hospital. Summary Casts and splints are worn to protect broken bones and other injuries. Casts and splints should remain clean and dry. Remove your cast or splint only as told by your health care provider. Get help right away if your pain gets worse, or if you have numbness, tingling, or skin that turns cold, blue, or discolored. This information is not intended to replace advice given to you by your health care provider. Make sure you discuss any questions you have with your health care provider. Document Revised: 09/05/2021 Document Reviewed: 09/05/2021 [employer] Patient Education 2022 [email or web address]. Follow Up Care 05/16/2023 16:17:01 With:Cheyanne Rosas Address: [address] [place] [address] [place] [phone] Business (1) When:05/19/2023 16:52:35 [facility]02-22-2024 Evaluation + Plan noteExtracted from: Title:ED Note Author:Robert Taylor PA-C te:05/16/23 Right hand fracture (S62.91X A: Unspecified fracture of right wrist and hand, initial encounter for closed fracture) Ordered: acetaminophen-oxycodone, 1 tab(s), Oral, q6hr as needed for pain for 3 day(s), 6 tab(s), Refill(s) 0, [id number], 160, cm, 05/16/23 16:22:00 EST, Height/Length Dosing, 115, kg, 05/16/23 16:22:00 EST, Weight Dosing Future Appointments Appointment Date:06/13/2023 07:40:00 AM Scheduled Provider:Cheyanne Rincon Location:[facility] Appointment Type:FM New Patient - Adult [facility]02-20-2024 Hospital Discharge instructions Patient Education 05/14/2023 12:06:20 Chronic Migraine Headache Chronic Migraine Headache A migraine is a type of headache that is usually stronger and more sudden than other headaches. Migraines are characterized by an intense pulsing, throbbing pain that is usually only present on one side of the head. Migraine pain usually gets worse with activity. Migraines can cause nausea, vomiting, sensitivity to light and sound, and vision changes. Migrainesthat keep coming back are called recurrent migraines. A migraine is called a chronic migraine if ithappens at least 15 days in a month for more than 3 months. Talk with your health care provider about what things may bring on (trigger) your migraines. What are the causes? The exact cause of this condition is not known. However, a migraine may be caused when nerves in the brain become irritated and release chemicals that cause inflammation of blood vessels. The inflammation of the blood vessels causes pain. Migraines may be triggered or caused by: Smoking. Certain foods and drinks, such as: ?Aged cheese. ?Chocolate. ?Alcohol. ?Caffeine. ?Foods or drinks that contain nitrates, glutamate, aspartame, MSG, or tyramine. Medicines, such as control pills or some blood pressure medicines. Other things that may trigger a migraine include: Menstruation. Emotional stress. Lack of sleep or too much sleep. Tiredness (fatigue). Bright lights or loud noises. Odors. Weather changes and high altitude. What increases the risk? The following factors may make you more likely to experience chronic migraine: Having migraines or a family history of migraines. Having a mental health condition, such as depression or anxiety. Having to take a lot of pain medicine. Having sleep problems. Having heart disease, diabetes, or obesity. What are the signs or symptoms? Symptoms of a migraine vary for each person and may include: Pulsating or throbbing pain. Pain that is usually only present on one side of the head. In some cases, the pain may be on both sides of the head or around the head or neck. Severe pain that prevents you from doing daily activities. Pain that gets worse with physical activity. Nausea, vomiting, or both. Pain with exposure to bright lights, loud noises, or activity. General sensitivity to bright lights, loud noises, or smells. Dizziness. A sign that a migraine is becoming chronic is an increasing number of migraine episodes. It is considered chronic if the migraine happens at least 15 days in a month for more than 3 months. How is this diagnosed? This condition is often diagnosed based on: Your symptoms and medical history. A physical exam. You may also have tests, including: A CT scan or an MRI of your brain. These imaging tests cannot diagnose migraines, but they can helpto rule out other causes of headaches. Taking fluid from the spine (lumbar puncture) and analyzing it (cerebrospinal fluid analysis, or CSF analysis). Blood tests. How is this treated? This condition is treated with: Medicines. These help to: ?Lessen pain and nausea. ?Prevent migraines. Lifestyle changes, such as changes to your diet or sleeping patterns. Behavior therapy. This may include: ?Relaxation training. ?Biofeedback. This is a treatment that teaches you to relax and use your brain to lower your heart rate and control your breathing. ?Cognitive behavioral therapy (CBT). This is a form of talk therapy. This therapy helps you set goals and follow up on the changes that you make. Acupuncture. Using a device that provides electrical stimulation to your nerves, which can relieve pain (neuromodulation therapy). Surgery, if the other treatments are not working. Follow these instructions at home: Medicines Take eeak-uzi-bhqjheq and prescription medicines only as told by your health care provider. Ask your health care provider if the medicine prescribed to you requires you to avoid driving or using machinery. Lifestyle Do not use any products that contain nicotine or tobacco, such as cigarettes, e- cigarettes, and chewing tobacco. If you need help quitting, ask your health care provider. Do not drink alcohol. Get 7 9 hours of sleep each night, or the amount of sleep recommended by your health care provider. Find ways to manage stress, such as meditation, deep breathing, or yoga. Maintain a healthy weight. If you need help losing weight, ask your health care provider. Exercise regularly. Aim for 150 minutes of moderate-intensity exercise, such as walking, biking, oryoga, or 75 minutes of vigorous exercise each week. Vigorous exercise includes running, circuit training, and swimming. General instructions Keep a journal to find out what triggers your migraines so you can avoid these triggers. For example, write down: ?What you eat and drink. ?How much sleep you get. ?Any change to your diet or medicines. Lie down in a dark, quiet room when you have a migraine. Try placing a cool towel over your head when you have a migraine. Keep lights dim, if bright lights bother you or make your migraines worse. Keep all follow-up visits as told by your health care provider. This is important. Where to find more information Coalition for Headache and Migraine Patients (CHAMP): headachemigraine.org [employer] [employer]: americanmigrainefoundation.org National Headache Foundation: headaches.org Contact a health care provider if: Your pain does not improve, even with medicine. Your migraines continue to return, even with medicine. Get help right away if: Your migraine becomes severe and medicine does not help. You have a stiff neck and fever. You have a loss of vision. You have muscle weakness or loss of muscle control. You start losing your balance, or you have trouble walking. You feel like you may faint, or you faint. You start having sudden and unexpected, severe headaches. You have a seizure. Summary Migraine headaches are usually stronger and more sudden than other headaches. Migraines are characterized by an intense pulsing, throbbing pain that is usually only present on one side of the head. Migraines that keep coming back are called recurrent migraines. A migraine is called a chronic migraine if it happens 15 days in a month for more than 3 months. Certain things may trigger migraines, such as lack of sleep or too much sleep, smoking, certain foods, alcohol, stress, and certain medicines. Your treatment plan may include medicines, lifestyle changes, and behavior therapy. This information is not intended to replace advice given to you by your health care provider. Make sure you discuss any questions you have with your health care provider. Document Revised: 04/27/2020 Document Reviewed: 04/27/2020 [employer] Patient Education 2022 [employer] Follow Up Care 05/14/2023 10:21:04 With:Cheyanne Rosas Address: [address], [facility] [address] [address] Business (1) When:05/17/2023 11:54:32 [facility]02-18-2024 Evaluation + Plan noteExtracted from: Title:ED Note Author:Nikhil Tubbs DO Date: Wrist fracture (S62.109A: Fr acture of unspecified carpal bone, unspecified wrist, initial encounter for closed fracture) Ordered: oxycodone, 5 mg = 1 cap(s), Oral, q6hr, PRN Pain 8-10, # 9 cap(s), Refills(s) 0, Pharmacy: [facility]/pharmacy #[id number], 160, cm, 05/12/23 10:26:00 EST, Height/Length Dosing, 114.8, kg, 05/12/23 10:26:00 EST, Weight Dosing Orders: acetaminophen-oxycodone, 1 tab(s), Tab, Oral, Once, Stop date 05/12/23 10:41:00 EST, STAT, Start date 05/12/23 10:41:00 EST Future Appointments Appointment Date:06/13/2023 07:40:00 AM Scheduled Provider:Cheyanne Rincon Location:[facility] Appointment Type: New Patient - Adult [facility]02-18-2024 Hospital Discharge instructions Patient Education 05/12/2023 10:45:04 Wrist Fracture Treated With Immobilization Wrist Fracture Treated With Immobilization A wrist fracture is a break or crack in one of the bones of the wrist. The wrist is made up of eight small bones at the palm of the hand (carpal bones) and two long bones that make up the forearm (radius and ulna). If the joint is stable and the bones are still in their normal position (nondisplaced), the injury may be treated with immobilization. This involves the use of a cast, splint, or sling to hold the wrist in place. Immobilization ensures that the bones continue to stay in the correct position while the wrist is healing. What are the causes? This condition may be caused by: A direct force to the wrist. Trauma, such as a car crash or falling on an outstretched hand. What increases the risk? The following factors may make you more likely to develop this condition: Doing contact sports or high-risk sports such as skiing, biking, and ice skating. Taking steroid medicines. Smoking. Being female. Being . Drinking more than three alcoholic beverages a day. Having a condition that weakens the bones (osteoporosis). Being older. Having a history of previous fractures. What are the signs or symptoms? Symptoms of this condition include: Pain. Swelling. Bruising. Not being able to move the wrist normally. The wrist may also hang in an odd position or appear deformed. How is this diagnosed? This condition may be diagnosed based on a physical exam and X-rays. You may also have a CT scan orMRI. How is this treated? Treatment for this condition involves wearing a cast, splint, or sling until the injured area is stable enough for you to begin jhhco-cy-ucgtcj exercises. You may also be prescribed pain medicine. Follow these instructions at home: If you have a cast: Do not stick anything inside the cast to scratch your skin. Doing that increases your risk of infection. Check the skin around the cast every day. Tell your health care provider about any concerns. You may put lotion on dry skin around the edges of the cast. Do not put lotion on the skin underneath the cast. Keep the cast clean and dry. If you have a splint or sling: Wear the splint or sling as told by your health care provider. Remove it only as told by your health care provider. Loosen the splint or sling if your fingers tingle, become numb, or turn cold and blue. Keep the splint or sling clean and dry. Bathing Do not take baths, swim, or use a hot tub until your health care provider approves. Ask your healthcare provider if you may take showers. You may only be allowed to take sponge baths. If your cast, splint, or sling is not waterproof: ?Do not let it get wet. ?Cover it with a watertight covering when you take a bath or a shower. If you have a sling, remove it for bathing only if your health care provider tells you it is safe to do that. Managing pain, stiffness, and swelling If directed, put ice on the injured area. To do this: ?If you have a removable splint or sling, remove it as told by your health care provider. ?Put ice in a plastic bag. ?Place a towel between your skin and the bag or between your cast and the bag. ?Leave the ice on for 20 minutes, 2 3 times a day. ?Remove the ice if your skin turns bright red. This is very important. If you cannot feel pain, heat, or cold, you have a greater risk of damage to the area. Move your fingers often to reduce stiffness and swelling. Raise (elevate) the injured area above the level of your heart while you are sitting or lying down. Activity Return to your normal activities as told by your health care provider. Ask your health care provider what activities are safe for you. Do not lift with or put weight on your injured wrist until your health care provider approves. Ask your health care provider when it is safe to drive if you have a cast, splint, or sling on yourwrist. Do obuln-yg-upodrm exercises only as told by your health care provider or physical therapist. Medicines Take jwxe-idf-yvzfuau and prescription medicines only as told by your health care provider. Ask your health care provider if the medicine prescribed to you: ?Requires you to avoid driving or using machinery. ?Can cause constipation. You may need to take these actions to prevent or treat constipation: ?Drink enough fluid to keep your urine pale yellow. ?Take trmn-ftm-nbqwfkn or prescription medicines. ?Eat foods that are high in fiber, such as beans, whole grains, and fresh fruits and vegetables. ?Limit foods that are high in fat and processed sugars, such as fried or sweet foods. General instructions Do not put pressure on any part of the cast or splint until it is fully hardened. This may take several hours. Do not use any products that contain nicotine or tobacco, such as cigarettes, e- cigarettes, and chewing tobacco. These can delay bone healing. If you need help quitting, ask your health care provider. Keep all follow-up visits. This is important. Contact a health care provider if: Your cast, splint, or sling is damaged or loose. You have any new pain, swelling, or bruising. Your pain, swelling, and bruising do not improve. You have a fever. You have chills. Get help right away if: Your skin or fingers on your injured arm turn blue or castro. Your arm feels cold or numb. You have severe pain in your injured wrist. Summary A wrist fracture is a break or crack in one of the bones of the wrist. If the joint is stable and the bones are still in their normal position, the injury may be treated by wearing a cast, splint, or sling. If you have a cast, check the skin around the cast every day. Tell your health care provider about any concerns. If you have a splint or sling, wear it as told by your health care provider. Remove it only as toldby your health care provider. This information is not intended to replace advice given to you by your health care provider. Make sure you discuss any questions you have with your health care provider. Document Revised: 06/21/2020 Document Reviewed: 06/21/2020 [employer] Patient Education 2022 [email or web address] Follow Up Care 05/12/2023 10:19:15 With:Esvin Romero Address: [address] [place] [address]- Business (1) When:05/15/2023 10:42:26 Comments:Follow-up with Dr. Romero in office.Take oxycodone as prescribed. You may take the 5 mg oxycodone tablet on top of your baseline Percocet for breakthrough pain from your fracture. [facility]02-17-2024 Hospital Discharge instructions Patient Education 05/11/2023 17:37:45 Wrist Fracture Treated With Immobilization, Kefg-mu-Ipbq Wrist Fracture Treated With Immobilization A wrist fracture is a break or crack in one of the bones of your wrist. Your wrist is made of eightsmall bones at the palm of your hand (carpal bones) and two long bones of the forearm (radius and ulna). A broken wrist is often treated by wearing a cast, splint, or sling (immobilization). This holds the broken pieces in place so they can heal. What are the causes? A direct force to the wrist. Trauma, such as a car crash or falling on an outstretched hand. What increases the risk? Doing contact sports or high-risk sports such as skiing, biking, and ice skating. Taking steroid medicines. Smoking. Being female. Being . Drinking more than three drinks that contain alcohol a day. Having a condition that weakens the bones (osteoporosis). Being older. Having had other broken bones in the past. What are the signs or symptoms? Pain. Swelling. Bruising. Not being able to move the wrist normally. The wrist hanging in an odd position or looking oddly shaped. How is this treated? Treatment involves wearing a cast, splint, or sling. You may also need to take pain medicine. Once the injury has healed enough, you may begin doing wqlmv-pd-sncbej exercises. Follow these instructions at home: If you have a cast: Do not stick anything inside the cast to scratch your skin. Check the skin around the cast every day. Tell your doctor if you see problems. You may put lotion on dry skin around the cast. Do not put lotion on the skin under the cast. Keep the cast clean and dry. If you have a splint or sling: Wear the splint or sling as told by your doctor. Take it off only as told by your doctor. Loosen the splint or sling if your fingers: ?Tingle. ?Become numb. ?Turn cold and blue. Keep the splint or sling clean and dry. Bathing Do not take baths, swim, or use a hot tub. Ask your doctor about taking showers or sponge baths. If your cast, splint, or sling is not waterproof: ?Do not let it get wet. ?Cover it with a watertight covering when you take a bath or shower. If you have a sling, take it off for bathing only if your doctor says this is okay. Managing pain, stiffness, and swelling If told, put ice on the injured area. To do this: ?If you have a removable splint or sling, take it off as told by your doctor. ?Put ice in a plastic bag. ?Place a towel between your skin and the bag or between your cast and the bag. ?Leave the ice on for 20 minutes, 2 3 times a day. ?Take off the ice if your skin turns bright red. This is very important. If you cannot feel pain, heat, or cold, you have a greater risk of damage to the area. Move your fingers often. Raise the injured area above the level of your heart while you are sitting or lying down. Activity Return to your normal activities when your doctor says that it is safe. Do not lift with or put weight on your injured wrist until your doctor says this is okay. Ask your doctor when it is safe to drive if you have a cast, splint, or sling on your wrist. Do qhafy-me-mjtwzd exercises only as told by your doctor. Medicines Take rgqa-yaa-dpajcpl and prescription medicines only as told by your doctor. Ask your doctor if you should avoid driving or using machines while you are taking your medicine. General instructions Do not put pressure on any part of the cast or splint until it is fully hardened. Do not smoke or use any products that contain nicotine or tobacco. If you need help quitting, ask your doctor. If told, take steps to prevent problems with pooping (constipation). You may need to: ?Drink enough fluid to keep your pee (urine) pale yellow. ?Take medicines. You will be told what medicines to take. ?Eat foods that are high in fiber. These include beans, whole grains, and fresh fruits and vegetables. ?Limit foods that are high in fat and sugar. These include fried or sweet foods. Keep all follow-up visits. Contact a doctor if: Your cast, splint, or sling is damaged or loose. You have any new pain, swelling, or bruising. Your pain, swelling, and bruising do not get better. You have a fever. You have chills. Get help right away if: Your skin or fingers on your injured arm turn blue or castro. Your arm feels cold or gets numb. You have very bad pain in your injured wrist. Summary A wrist fracture is a break or crack in one of the bones of your wrist. A broken wrist is often treated by wearing a cast, splint, or sling. You should check the skin around a cast every day. Take off a splint or sling only as told by your doctor. This information is not intended to replace advice given to you by your health care provider. Make sure you discuss any questions you have with your health care provider. Document Revised: 06/21/2020 Document Reviewed: 06/21/2020 [employer] Patient Education 2022 [email or web address]. 05/11/2023 17:37:45 Cast or Splint Care, Adult, Xbvl-bh-Gczf Cast or Splint Care, Adult Casts and splints are supports that are worn to protect broken bones and other injuries. A cast or splint may hold a bone still and in the correct position while it heals. Casts and splints may also help with pain, swelling, and muscle spasms. A cast is a hardened support that is usually made of fiberglass or plaster. It is custom-fit to thebody and offers more protection than a splint. Most casts cannot be taken off and put back on. A splint is a type of soft support that is usually made from cloth and elastic. It can be adjusted or taken off as needed. Often, splints are used on broken bones at first. Later, a cast can replace the splint. What are the risks? In some cases, wearing a cast or splint can make it so that less blood gets to the wrist or hand orto the foot and toes. This can happen if there is a lot of swelling or if the cast or splint is tootight. Limited blood supply can cause a problem called compartment syndrome. This can lead to lasting damage. Symptoms include: Pain that gets worse. Numbness and tingling. Changes in skin color, including paleness or a bluish color. Cold fingers or toes. Other problems from wearing a cast or splint can include: Skin irritation that can cause: ?Itching. ?Rash. ?Skin sores. ?Skin infection. Limb stiffness or weakness. How to care for a cast or splint that cannot be taken off Do not put pressure on any part of the cast or splint until it is fully hardened. Do not stick anything inside the cast or splint to scratch your skin. Check the skin around the cast or splint every day. Tell your doctor if you see problems. You may put lotion on dry skin around the cast or splint. Do not put lotion on the skin under the cast or splint. Keep the cast or splint clean and dry. How to care for your splint that you can take off Wear the splint as told by your doctor. Take it off only as told by your doctor. Check the skin around it every day. Tell your doctor if you see problems. Loosen it if your fingers or toes: ?Tingle. ?Become numb. ?Turn cold and blue. Keep it clean and dry. Clean your splint as told by your doctor. Use mild soap and water and let itair-dry. Do not use heat on the splint. Follow these instructions at home: Bathing Do not take baths, swim, or use a hot tub until your doctor approves. Ask your doctor if you may take showers. You may only be allowed to take sponge baths. If the cast or splint is not waterproof: ?Do not let it get wet. ?Cover it with a watertight covering when you take a bath or a shower. Managing pain, stiffness, and swelling If told, put ice on the affected area. To do this: ?If you have a cast or splint that can be taken off, take it off as told by your doctor. ?Put ice in a plastic bag. ?Place a towel between your skin and the bag or between your cast and the bag. ?Leave the ice on for 20 minutes, 2 3 times a day. ?Take off the ice if your skin turns bright red. This is very important. If you cannot feel pain, heat, or cold, you have a greater risk of damage to the area. Move your fingers or toes often. Raise the injured area above the level of your heart while you are sitting or lying down. Safety Do not use your injured leg or foot to support your body weight until your doctor says that you can. Use crutches or other helpful (assistive) devices as told by your doctor. Ask your doctor when it is safe to drive if you have a cast or splint on part of your body. General instructions Take glpc-yyr-xbzwsad and prescription medicines only as told by your doctor. Return to your normal activities as told by your doctor. Ask your doctor what activities are safe for you. Keep all follow-up visits. This is important. Contact a doctor if: The skin around the cast or splint gets red or raw. The skin under the cast is very itchy or painful. Your cast or splint: ?Gets damaged. ?Feels very uncomfortable. ?Is too tight or too loose. Your cast becomes wet or it starts to have a soft spot or area. There is a bad smell coming from under your cast. You get an object stuck under your cast. Get help right away if: You get any symptoms of compartment syndrome, such as: ?Very bad pain or pressure under the cast. ?Numbness, tingling, coldness, or pale or bluish skin. The part of your body above or below the cast is swollen, and it turns a different color (is discolored). You cannot feel or move your fingers or toes. Your pain gets worse. There is fluid leaking through the cast. You have trouble breathing or shortness of breath. You have chest pain. These symptoms may be an emergency. Get help right away. Call your local emergency services (911 int [place] Do not wait to see if the symptoms will go away. Do not drive yourself to the hospital. Summary Casts and splints are worn to protect broken bones and other injuries. Keep your cast or splint clean and dry. Take off your cast or splint only as told by your doctor. Get help right away if you have very bad pain, numbness, tingling, or skin that turns cold or another color. This information is not intended to replace advice given to you by your health care provider. Make sure you discuss any questions you have with your health care provider. Document Revised: 09/05/2021 Document Reviewed: 09/05/2021 [employer] Patient Education 2022 [email or web address]. Follow Up Care 05/11/2023 16:21:24 With:Esvin Romero Address: [address] [place] [address]- Business (1) When:05/14/2023 17:17:09 Comments:Call Dr for diagnosis based follow up With:Cheyanne Rosas Address: [address], [facility] [address] [address]- Business (1) When:05/14/2023 17:17:07 [facility]02-14-2024 Hospital Discharge instructions Patient Education 05/08/2023 13:05:53 Abdominal Pain, Adult, Uhqn-ij-Mnbm Abdominal Pain, Adult Many things can cause belly (abdominal) pain. Most times, belly pain is not dangerous. Many cases of belly pain can be watched and treated at home. Sometimes, though, belly pain is serious. Your doctor will try to find the cause of your belly pain. Follow these instructions at home: Medicines Take gder-aqr-ylflpic and prescription medicines only as told by your doctor. Do not take medicines that help you poop (laxatives) unless told by your doctor. General instructions Watch your belly pain for any changes. Drink enough fluid to keep your pee (urine) pale yellow. Keep all follow-up visits as told by your doctor. This is important. Contact a doctor if: Your belly pain changes or gets worse. You are not hungry, or you lose weight without trying. You are having trouble pooping (constipated) or have watery poop (diarrhea) for more than 2 3 days. You have pain when you pee or poop. Your belly pain wakes you up at night. Your pain gets worse with meals, after eating, or with certain foods. You are vomiting and cannot keep anything down. You have a fever. You have blood in your pee. Get help right away if: Your pain does not go away as soon as your doctor says it should. You cannot stop vomiting. Your pain is only in areas of your belly, such as the right side or the left lower part of the belly. You have bloody or black poop, or poop that looks like tar. You have very bad pain, cramping, or bloating in your belly. You have signs of not having enough fluid or water in your body (dehydration), such as: ?Dark pee, very little pee, or no pee. ?Cracked lips. ?Dry mouth. ?Sunken eyes. ?Sleepiness. ?Weakness. You have trouble breathing or chest pain. Summary Many cases of belly pain can be watched and treated at home. Watch your belly pain for any changes. Take jlew-tww-wfzmpbe and prescription medicines only as told by your doctor. Contact a doctor if your belly pain changes or gets worse. Get help right away if you have very bad pain, cramping, or bloating in your belly. This information is not intended to replace advice given to you by your health care provider. Make sure you discuss any questions you have with your health care provider. Document Revised: 07/20/2019 Document Reviewed: 07/20/2019 [employer] Patient Education 2022 [email or web address]. Follow Up Care 05/08/2023 11:25:27 With:Katharina Kidd Address: [address], [address] [place] [phone] Business (1) When:05/11/2023 12:34:39 With:Cheyanne Roass Address: [address], [address] [place] [address]- Business (1) When:05/11/2023 12:34:31 Comments:Follow-up with your primary care provider in 3 to 5 days. If symptoms worsen, do not improve, or new symptoms arise please report back to emergency department for further evaluation. [facility]02-04-2024 Emergency department Note* Laurita Baires RN - 04/28/2023 12:39 AM EST Patient discharged to home, alert and oriented, skin warm, dry and pink. Denies needs and or questions. Will follow-up as directed, patient encouraged to return for worsening or new symptoms or otherconcerns. [id number]* Laurita Baires RN - 04/28/2023 12:39 AM EST Patient discharged to home, alert and oriented, skin warm, dry and pink. Denies needs and or questions. Will follow-up as directed, patient encouraged to return for worsening or new symptoms or otherconcerns. * Laurita Baires RN - 04/28/2023 12:24 AM EST Pt ambulated to restroom with steady gait. Pt states her pain has improved and is now 5/10 and tolerable. Physician aware. * Laurita Baires RN - 04/27/2023 11:26 PM EST To bedside for rounding. Pt medicated for 10/10 pain per MAY. Pt resting quietly. No other needs expressed at this time. Call light in reach. * Laurita Baires RN - 04/27/2023 11:00 PM EST To bedside to introduce self to pt and address needs. Resident at bedside. Pt resting quietly. No needs expressed at this time. Call light within reach. * Sharan Hwang MD - 04/27/2023 10:41 PM EST CHIEF COMPLAINT Chief Complaint Patient presents with Back Pain HPI Jerad Tracy is a 48 year old female with a PMHx of herniated disc L4-5 who presents to the ED with chief complaint of acute on chronic back pain. Onset earlier this afternoon when she was on a tilt table inverted at a friends house. She describes shooting pain down both legs but much more severeon the right. Please see MDM and ED course for full details. REVIEW OF SYSTEMS ROS reviewed and negative except as stated in the HPI. PAST MEDICAL HISTORY No past medical history on file. FAMILY HISTORY No family history on file. SOCIAL HISTORY Social History Socioeconomic History Marital status: Legally Tobacco Use Smoking status: Every Day Packs/day: .5 Types: Cigarettes Smokeless tobacco: Never Substance and Sexual Activity Drug use: Never SURGICAL HISTORY No past surgical history on file. CURRENT MEDICATIONS No current facility-administered medications on file prior to encounter. Current Outpatient Medications on File Prior to Encounter Medication Sig gabapentin (NEURONTIN) 300 mg capsule Take 1 Cap by mouth three times a day ibuprofen (MOTRIN) 800 mg tablet Take 1 Tab by mouth three times a day as needed for Pain diazePAM (VALIUM) 5 mg tablet Take 1 Tab by mouth three times a day ALLERGIES Allergies Allergen Reactions Hydrocodone-Acetaminophen Hives Penicillin G Hives PHYSICAL EXAM VITAL SIGNS: ED Triage Vitals [04/27/23 2240] Enc Vitals Group BP (!) 170/96 Pulse 83 Resp 16 Temp 97.8 F (36.6 C) Temp src SpO2 98 % Weight Height Head Circumference Peak Flow Pain Score Pain Loc Pain Edu? Excl. in GC? Vitals: 04/27/23 2240 BP: (!) 170/96 Pulse: 83 Resp: 16 Temp: 97.8 F (36.6 C) SpO2: 98% Physical Exam Vitals and nursing note reviewed. Constitutional: General: She is not in acute distress. Appearance: She is normal weight. She is not toxic-appearing. HENT: Head: Normocephalic and atraumatic. Right Ear: Tympanic membrane and external ear normal. Left Ear: Tympanic membrane and external ear normal. Nose: Nose normal. Mouth/Throat: Mouth: Mucous membranes are moist. Eyes: Extraocular Movements: Extraocular movements intact. Pupils: Pupils are equal, round, and reactive to light. Cardiovascular: Rate and Rhythm: Normal rate and regular rhythm. Heart sounds: No murmur heard. No friction rub. No gallop. Pulmonary: Effort: Pulmonary effort is normal. Breath sounds: No stridor. No wheezing, rhonchi or rales. Abdominal: General: Bowel sounds are normal. Palpations: Abdomen is soft. Tenderness: There is no abdominal tenderness. There is no guarding or rebound. Musculoskeletal: General: Normal range of motion. Cervical back: Normal range of motion. Comments: Slightly limited range of motion at the back and hips to extension fully, patient having trouble standing completely erect. She can do it this is limited by pain. There is no midline tenderness but has some sacroiliac tenderness on the right. Patient is able to ambulate. No concerning overlying cutaneous changes, no palpable step-offs on palpation. Skin: General: Skin is warm. Capillary Refill: Capillary refill takes less than 2 seconds. Neurological: General: No focal deficit present. Mental Status: She is alert and oriented to person, place, and time. Psychiatric: Mood and Affect: Mood normal. Judgment: Judgment normal. LABS Labs Reviewed - No data to display RADIOLOGY I personally reviewed the images. The radiologist's interpretation reveals: Last Imaging results: No orders to display MEDS GIVEN IN ED: Medications acetaminophen (TYLENOL EXTRA STR) tablet 1,000 mg (1,000 mg Oral Not Given 04/27/232327) Lidocaine (ASPERCREME) 4 % topical patch 2 Patch (2 Patches Topical Patch Applied 04/27/232328) methocarbamoL (ROBAXIN) tablet 1,000 mg (1,000 mg Oral Given 04/27/238) ketorolac (TORADOL) injection 15 mg (15 mg Intramuscular Given 04/27/232326) COURSE & MEDICAL DECISION MAKING Pertinent Labs & Imaging studies reviewed. (See chart for details) In summary, patient presents with CC stated above in the HPI Chronic conditions managed during thisvisit include chronic low back pain. Notable points from history and exam discussed above. History was obtained from pt, chart review, family, EMS. My differential diagnosis includes but is not limited to cauda equina syndrome, epidural abscess, spinal hematoma, lumbar strain, . Please see the ED Course section for further details. I considered the following: -Diagnostic tests: Basic labs, CT lumbar spine, MRI -Medications (including prescriptions): Multimodal pain therapy -Escalation to higher level of care: Consider admission and consultation if indicated Patient presents with seems like radicular pain versus sciatica. Acute on chronic worsening of her underlying lumbar back pain with a known slipped disc at L4-L5. Patient has appointment with her neurosurgeon on May 08. It seems like the patient's activities today during physical therapy and using a inversion table exacerbate her pain. Will treat symptomatically and if there is no improvement we will pursue further imaging. No red flag signs of cauda equina syndrome or other emergent back pain. ED Course Update: ED Course as of 04/28/23 0030 Sun Apr 28, 2023 0023 Patient's pain is improved, she will ambulate to the bathroom and actually stand completely erect without any significant pain. She rates her pain as a 4-5 out of 10 now. Patient is satisfied with the pain improvement. We discussed the option for further imaging today versus discharge home with appropriate return precautions and follow-up with her spinal surgeon as already scheduled for . Patient is comfortable with the plan for discharge home at this time is grateful for the pain control. She was discharged home in stable and amatory condition. At this time patient is stable for discharge. Results were reviewed with the patient. Patient will follow-up with their primary care provider in the immediate future. All questions and concerns were addressed and strict return precautions were given. Time of Disposition: 002 New Prescriptions KETOROLAC (TORADOL) 10 MG TABLET Take 1 Tab by mouth every 6 hours as needed for up to 30 doses LIDOCAINE PATCH (LIDODERM) 5 % TOPICAL PATCH Apply 1 Patch daily for 15 doses METHOCARBAMOL (ROBAXIN) 500 MG TABLET Take 2 Tab by mouth three times a day as needed for up to 90 doses FINAL IMPRESSION ICD-10-CM ICD-9-CM 1. Chronic right-sided low back pain with right-sided sciatica M54.41 724.2 G89.29 724.3 338.29 Electronically signed by: Sharan Hwang MD, 04/28/2023 * Rebecca Gómez RN - 04/27/2023 10:39 PM EST Patient arrives to triage stating she has a herniated L4-L5 disc, got on an inversion table tonightand is now having back pain. Denies any other injury or complaints. A&Ox4. documented in this encounterWood County [id number] Hospital Discharge instructions* Discharge Instructions* Sharan Hwang MD - 04/28/2023 12:28 AM EST Dear Jerad Tracy, Thank you for allowing me and the rest of the Emergency Department staff at the [facility] ED to care for you today. You were evaluated in the Emergency Department today for worsening of chronic back pain. During your visit today you were screened for medical and surgical emergencies requiring immediate intervention or hospitalization. But today is only one snapshot in time. Emergent medical conditionsand severe diseases can change and progress over time. Please follow up with your primary care physician as needed. If you do not have a primary doctor, you can call your insurance company or call [facility] at [phone] for assistance in finding a doctor. If you do not have insurance, you can go to the finance/registration department for more assistance. Return to the Emergency Department if you experience worsening shortness of breath, chest pain, palpitations, headache, light headedness, nausea/vomiting, or any other concerning symptoms. You should seek immediate medical help for: Worsening pain that is not helped with prescribed pain medicines and/or the recommended doses of over the counter pain medicines such as acetaminophen (Tylenol) or ibuprofen (Motrin/Advil)*. New or worsening chest pain or trouble breathing New or worsening headache, confusion, weakness, or visual changes New or worsening fever (>100.4 F) that does not improve with the recommended doses of over the counter fever treatments such as acetaminophen (Tylenol) or ibuprofen (Motrin/Advil)* for more than afew hours. Any other concerns that you feel could be life, limb, or eye-sight threatening Inability to tolerate fluid intake Continue a healthy diet and drink plenty of clear fluids. Avoid sugary and carbonated beverages. Continue regular exercise as tolerated. If you were given any prescriptions, then take the medications as prescribed. If you require assistance with paying for medications, please visit https://www.[employer]/ where you can find the best prices for prescription and rttt-olp-rhmyuud medications. Wishing you a speedy recovery, Sharan Hwang MD documented in this encounterWood County [id number] Emergency department Note* Laurita Baires RN - 04/28/2023 12:24 AM EST Pt ambulated to restroom with steady gait. Pt states her pain has improved and is now 5/10 and tolerable. Physician aware. [facility] [id number] Emergency department Note* Laurita Baires RN - 04/27/2023 11:26 PM EST To bedside for rounding. Pt medicated for 10/10 pain per MAR. Pt resting quietly. No other needs expressed at this time. Call light in reach. [facility] [id number] Emergency department Note* Laurita Baires RN - 04/27/2023 11:00 PM EST To bedside to introduce self to pt and address needs. Resident at bedside. Pt resting quietly. No needs expressed at this time. Call light within reach. [address]03-2024 Physician Emergency department Note* Sharan Hwang MD - 04/27/2023 10:41 PM EST CHIEF COMPLAINT Chief Complaint Patient presents with Back Pain HPI Jerad Tracy is a 48 year old female with a PMHx of herniated disc L4-5 who presents to the ED with chief complaint of acute on chronic back pain. Onset earlier this afternoon when she was on a tilt table inverted at a friends house. She describes shooting pain down both legs but much more severeon the right. Please see MDM and ED course for full details. REVIEW OF SYSTEMS ROS reviewed and negative except as stated in the HPI. PAST MEDICAL HISTORY No past medical history on file. FAMILY HISTORY No family history on file. SOCIAL HISTORY Social History Socioeconomic History Marital status: Legally Tobacco Use Smoking status: Every Day Packs/day: .5 Types: Cigarettes Smokeless tobacco: Never Substance and Sexual Activity Drug use: Never SURGICAL HISTORY No past surgical history on file. CURRENT MEDICATIONS No current facility-administered medications on file prior to encounter. Current Outpatient Medications on File Prior to Encounter Medication Sig gabapentin (NEURONTIN) 300 mg capsule Take 1 Cap by mouth three times a day ibuprofen (MOTRIN) 800 mg tablet Take 1 Tab by mouth three times a day as needed for Pain diazePAM (VALIUM) 5 mg tablet Take 1 Tab by mouth three times a day ALLERGIES Allergies Allergen Reactions Hydrocodone-Acetaminophen Hives Penicillin G Hives PHYSICAL EXAM VITAL SIGNS: ED Triage Vitals [04/27/23 2240] Enc Vitals Group BP (!) 170/96 Pulse 83 Resp 16 Temp 97.8 F (36.6 C) Temp src SpO2 98 % Weight Height Head Circumference Peak Flow Pain Score Pain Loc Pain Edu? Excl. in GC? Vitals: 04/27/23 2240 BP: (!) 170/96 Pulse: 83 Resp: 16 Temp: 97.8 F (36.6 C) SpO2: 98% Physical Exam Vitals and nursing note reviewed. Constitutional: General: She is not in acute distress. Appearance: She is normal weight. She is not toxic-appearing. HENT: Head: Normocephalic and atraumatic. Right Ear: Tympanic membrane and external ear normal. Left Ear: Tympanic membrane and external ear normal. Nose: Nose normal. Mouth/Throat: Mouth: Mucous membranes are moist. Eyes: Extraocular Movements: Extraocular movements intact. Pupils: Pupils are equal, round, and reactive to light. Cardiovascular: Rate and Rhythm: Normal rate and regular rhythm. Heart sounds: No murmur heard. No friction rub. No gallop. Pulmonary: Effort: Pulmonary effort is normal. Breath sounds: No stridor. No wheezing, rhonchi or rales. Abdominal: General: Bowel sounds are normal. Palpations: Abdomen is soft. Tenderness: There is no abdominal tenderness. There is no guarding or rebound. Musculoskeletal: General: Normal range of motion. Cervical back: Normal range of motion. Comments: Slightly limited range of motion at the back and hips to extension fully, patient having trouble standing completely erect. She can do it this is limited by pain. There is no midline tenderness but has some sacroiliac tenderness on the right. Patient is able to ambulate. No concerning overlying cutaneous changes, no palpable step-offs on palpation. Skin: General: Skin is warm. Capillary Refill: Capillary refill takes less than 2 seconds. Neurological: General: No focal deficit present. Mental Status: She is alert and oriented to person, place, and time. Psychiatric: Mood and Affect: Mood normal. Judgment: Judgment normal. LABS Labs Reviewed - No data to display RADIOLOGY I personally reviewed the images. The radiologist's interpretation reveals: Last Imaging results: No orders to display MEDS GIVEN IN ED: Medications acetaminophen (TYLENOL EXTRA STR) tablet 1,000 mg (1,000 mg Oral Not Given 04/27/232327) Lidocaine (ASPERCREME) 4 % topical patch 2 Patch (2 Patches Topical Patch Applied 04/27/232328) methocarbamoL (ROBAXIN) tablet 1,000 mg (1,000 mg Oral Given 04/27/238) ketorolac (TORADOL) injection 15 mg (15 mg Intramuscular Given 04/27/232326) COURSE & MEDICAL DECISION MAKING Pertinent Labs & Imaging studies reviewed. (See chart for details) In summary, patient presents with CC stated above in the HPI Chronic conditions managed during thisvisit include chronic low back pain. Notable points from history and exam discussed above. History was obtained from pt, chart review, family, EMS. My differential diagnosis includes but is not limited to cauda equina syndrome, epidural abscess, spinal hematoma, lumbar strain, . Please see the ED Course section for further details. I considered the following: -Diagnostic tests: Basic labs, CT lumbar spine, MRI -Medications (including prescriptions): Multimodal pain therapy -Escalation to higher level of care: Consider admission and consultation if indicated Patient presents with seems like radicular pain versus sciatica. Acute on chronic worsening of her underlying lumbar back pain with a known slipped disc at L4-L5. Patient has appointment with her neurosurgeon on May 08. It seems like the patient's activities today during physical therapy and using a inversion table exacerbate her pain. Will treat symptomatically and if there is no improvement we will pursue further imaging. No red flag signs of cauda equina syndrome or other emergent back pain. ED Course Update: ED Course as of 04/28/23 0030 Sun Apr 28, 2023 0023 Patient's pain is improved, she will ambulate to the bathroom and actually stand completely erect without any significant pain. She rates her pain as a 4-5 out of 10 now. Patient is satisfied with the pain improvement. We discussed the option for further imaging today versus discharge home with appropriate return precautions and follow-up with her spinal surgeon as already scheduled for . Patient is comfortable with the plan for discharge home at this time is grateful for the pain control. She was discharged home in stable and amatory condition. At this time patient is stable for discharge. Results were reviewed with the patient. Patient will follow-up with their primary care provider in the immediate future. All questions and concerns were addressed and strict return precautions were given. Time of Disposition: 002 New Prescriptions KETOROLAC (TORADOL) 10 MG TABLET Take 1 Tab by mouth every 6 hours as needed for up to 30 doses LIDOCAINE PATCH (LIDODERM) 5 % TOPICAL PATCH Apply 1 Patch daily for 15 doses METHOCARBAMOL (ROBAXIN) 500 MG TABLET Take 2 Tab by mouth three times a day as needed for up to 90 doses FINAL IMPRESSION ICD-10-CM ICD-9-CM 1. Chronic right-sided low back pain with right-sided sciatica M54.41 724.2 G89.29 724.3 338.29 Electronically signed by: Sharan Hwang MD, 04/28/2023 [facility] [id number] Emergency department Note* Rebecca Gómez RN - 04/27/2023 10:39 PM EST Patient arrives to triage stating she has a herniated L4-L5 disc, got on an inversion table tonightand is now having back pain. Denies any other injury or complaints. A&Ox4. [facility] [id number] Evaluation + Plan noteExtracted from: Title:ED Note Author:Annette Watkins, Balbina Celis te:04/26/23 1. Chronic back pain (M54.9: Dorsalgia, unspecified) Other chronic pain (G89.29: Other chronic pain) Orders: ibuprofen, 800 mg = 1 tab(s), Oral, TID, # 30 tab(s), Refills(s) 0, Pharmacy: [facility]/pharmacy #[id number], 160, cm, 04/26/23 9:34:00 EST, Height/Length Dosing, 114.3, kg, 04/26/23 9:34:00 EST, Weight Dosing ketorolac, 60 mg = 2 mL, Injection, IntraMuscular, Once, Stop date 04/26/23 9:37:00 EST, STAT, Start date 04/26/23 9:37:00 EST, 04/26/23 9:37:00 EST morphine, 4 mg = 1 mL, Injection, IntraMuscular, Once, Stop date 04/26/23 9:38:00 EST, STAT, Start date 04/26/23 9:38:00 EST, 04/26/23 9:38:00 EST [facility]02-02-2024 Hospital Discharge instructions Patient Education 04/26/2023 10:11:06 Chronic Back Pain Chronic Back Pain When back pain lasts longer than 3 months, it is called chronic back pain. The cause of your back pain may not be known. Some common causes include: Wear and tear (degenerative disease) of the bones, ligaments, or disks in your back. Inflammation and stiffness in your back (arthritis). People who have chronic back pain often go through certain periods in which the pain is more intense (flare-ups). Many people can learn to manage the pain with home care. Follow these instructions at home: Pay attention to any changes in your symptoms. Take these actions to help with your pain: Managing pain and stiffness If directed, apply ice to the painful area. Your health care provider may recommend applying ice during the first 24 48 hours after a flare-up begins. To do this: ?Put ice in a plastic bag. ?Place a towel between your skin and the bag. ?Leave the ice on for 20 minutes, 2 3 times per day. If directed, apply heat to the affected area as often as told by your health care provider. Use theheat source that your health care provider recommends, such as a moist heat pack or a heating pad. ?Place a towel between your skin and the heat source. ?Leave the heat on for 20 30 minutes. ?Remove the heat if your skin turns bright red. This is especially important if you are unable to feel pain, heat, or cold. You may have a greater risk of getting burned. Try soaking in a warm tub. Activity Avoid bending and other activities that make the problem worse. Maintain a proper position when standing or sitting: ?When standing, keep your upper back and neck straight, with your shoulders pulled back. Avoid slouching. ?When sitting, keep your back straight and relax your shoulders. Do not round your shoulders or pull them backward. Do not sit or intelligence consultant one place for long periods of time. Take brief periods of rest throughout the day. This will reduce your pain. Resting in a lying or standing position is usually better than sitting to rest. When you are resting for longer periods, mix in some mild activity or stretching between periods ofrest. This will help to prevent stiffness and pain. Get regular exercise. Ask your health care provider what activities are safe for you. Do not lift anything that is heavier than 10 lb (4.5 kg), or the limit that you are told, until your health care provider says that it is safe. Always use proper lifting technique, which includes: ?Bending your knees. ?Keeping the load close to your body. ?Avoiding twisting. Sleep on a firm mattress in a comfortable position. Try lying on your side with your knees slightlybent. If you lie on your back, put a pillow under your knees. Medicines Treatment may include medicines for pain and inflammation taken by mouth or applied to the skin, prescription pain medicine, or muscle relaxants. Take llyq-hbr-ymfnsjz and prescription medicines onlyas told by your health care provider. Ask your health care provider if the medicine prescribed to you: ?Requires you to avoid driving or using machinery. ?Can cause constipation. You may need to take these actions to prevent or treat constipation: ?Drink enough fluid to keep your urine pale yellow. ?Take sqpx-bem-abymrny or prescription medicines. ?Eat foods that are high in fiber, such as beans, whole grains, and fresh fruits and vegetables. ?Limit foods that are high in fat and processed sugars, such as fried or sweet foods. General instructions Do not use any products that contain nicotine or tobacco, such as cigarettes, e- cigarettes, and chewing tobacco. If you need help quitting, ask your health care provider. Keep all follow-up visits as told by your health care provider. This is important. Contact a health care provider if: You have pain that is not relieved with rest or medicine. Your pain gets worse, or you have new pain. You have a high fever. You have rapid weight loss. You have trouble doing your normal activities. Get help right away if: You have weakness or numbness in one or both of your legs or feet. You have trouble controlling your bladder or your bowels. You have severe back pain and have any of the following: ?Nausea or vomiting. ?Pain in your abdomen. ?Shortness of breath or you faint. Summary Chronic back pain is back pain that lasts longer than 3 months. When a flare-up begins, apply ice to the painful area for the first 24 48 hours. Apply a moist heat pad or use a heating pad on the painful area as directed by your health care provider. When you are resting for longer periods, mix in some mild activity or stretching between periods ofrest. This will help to prevent stiffness and pain. This information is not intended to replace advice given to you by your health care provider. Make sure you discuss any questions you have with your health care provider. Document Revised: 04/20/2020 Document Reviewed: 04/20/2020 [employer] Patient Education 2022 [email or web address]. Follow Up Care 04/26/2023 09:28:24 With:ANTONIO HUSAIN Address: [address] [place] [phone] Business (1) When:04/29/2023 10:05:29 Comments:Make sure to follow-up with your neurosurgeon as scheduled and your primary doctor. Return to the emergency room if your pain gets worse, bowel or bladder incontinence, numbness/tingling in the saddle/groin area, weakness in your leg or any new symptoms. [facility]01-29-2024 Hospital Discharge instructions Patient Education 04/22/2023 20:37:29 Acute Back Pain, Adult Acute Back Pain, Adult Acute back pain is sudden and usually short-lived. It is often caused by an injury to the muscles and tissues in the back. The injury may result from: A muscle, tendon, or ligament getting overstretched or torn. Ligaments are tissues that connect bones to each other. Lifting something improperly can cause a back strain. Wear and tear (degeneration) of the spinal disks. Spinal disks are circular tissue that provide cushioning between the bones of the spine (vertebrae). Twisting motions, such as while playing sports or doing yard work. A hit to the back. Arthritis. You may have a physical exam, lab tests, and imaging tests to find the cause of your pain. Acute back pain usually goes away with rest and home care. Follow these instructions at home: Managing pain, stiffness, and swelling Take mhfr-wuz-empmlpl and prescription medicines only as told by your health care provider. Treatment may include medicines for pain and inflammation that are taken by mouth or applied to the skin, or muscle relaxants. Your health care provider may recommend applying ice during the first 24 48 hours after your pain starts. To do this: ?Put ice in a plastic bag. ?Place a towel between your skin and the bag. ?Leave the ice on for 20 minutes, 2 3 times a day. ?Remove the ice if your skin turns bright red. This is very important. If you cannot feel pain, heat, or cold, you have a greater risk of damage to the area. If directed, apply heat to the affected area as often as told by your health care provider. Use theheat source that your health care provider recommends, such as a moist heat pack or a heating pad. ?Place a towel between your skin and the heat source. ?Leave the heat on for 20 30 minutes. ?Remove the heat if your skin turns bright red. This is especially important if you are unable to feel pain, heat, or cold. You have a greater risk of getting burned. Activity Do not stay in bed. Staying in bed for more than 1 2 days can delay your recovery. Sit up and stand up straight. Avoid leaning forward when you sit or hunching over when you stand. ?If you work at a desk, sit close to it so you do not need to lean over. Keep your chin tucked in. Keep your neck drawn back, and keep your elbows bent at a 90-degree angle (right angle). ?Sit high and close to the steering wheel when you drive. Add lower back (lumbar) support to your car seat, if needed. Take short walks on even surfaces as soon as you are able. Try to increase the length of time you walk each day. Do not sit, drive, or intelligence consultant one place for more than 30 minutes at a time. Sitting or standing for long periods of time can put stress on your back. Do not drive or use heavy machinery while taking prescription pain medicine. Use proper lifting techniques. When you bend and lift, use positions that put less stress on your back: ?Bend your knees. ?Keep the load close to your body. ?Avoid twisting. Exercise regularly as told by your health care provider. Exercising helps your back heal faster andhelps prevent back injuries by keeping muscles strong and flexible. Work with a physical therapist to make a safe exercise program, as recommended by your health care provider. Do any exercises as told by your physical therapist. Lifestyle Maintain a healthy weight. Extra weight puts stress on your back and makes it difficult to have good posture. Avoid activities or situations that make you feel anxious or stressed. Stress and anxiety increase muscle tension and can make back pain worse. Learn ways to manage anxiety and stress, such as through exercise. General instructions Sleep on a firm mattress in a comfortable position. Try lying on your side with your knees slightlybent. If you lie on your back, put a pillow under your knees. Keep your head and neck in a straight line with your spine (neutral position) when using electronicequipment like smartphones or pads. To do this: ?Raise your smartphone or pad to look at it instead of bending your head or neck to look down. ?Put the smartphone or pad at the level of your face while looking at the screen. Follow your treatment plan as told by your health care provider. This may include: ?Cognitive or behavioral therapy. ?Acupuncture or massage therapy. ?Meditation or yoga. Contact a health care provider if: You have pain that is not relieved with rest or medicine. You have increasing pain going down into your legs or buttocks. Your pain does not improve after 2 weeks. You have pain at night. You lose weight without trying. You have a fever or chills. You develop nausea or vomiting. You develop abdominal pain. Get help right away if: You develop new bowel or bladder control problems. You have unusual weakness or numbness in your arms or legs. You feel faint. These symptoms may represent a serious problem that is an emergency. Do not wait to see if the symptoms will go away. Get medical help right away. Call your local emergency services (911 in the [place] Do not drive yourself to the hospital. Summary Acute back pain is sudden and usually short-lived. Use proper lifting techniques. When you bend and lift, use positions that put less stress on your back. Take qsva-muw-kpbyebf and prescription medicines only as told by your health care provider, and apply heat or ice as told. This information is not intended to replace advice given to you by your health care provider. Make sure you discuss any questions you have with your health care provider. Document Revised: 06/02/2021 Document Reviewed: 06/02/2021 [employer] Patient Education 2022 [email or web address]. 04/22/2023 20:37:29 Chronic Back Pain, Ylel-mr-Jyie Chronic Back Pain When back pain lasts longer than 3 months, it is called chronic back pain. Pain may get worse at certain times (flare-ups). There are things you can do at home to manage your pain. Follow these instructions at home: Pay attention to any changes in your symptoms. Take these actions to help with your pain: Managing pain and stiffness If told, put ice on the painful area. Your doctor may tell you to use ice for 24 48 hours after theflare-up starts. To do this: ?Put ice in a plastic bag. ?Place a towel between your skin and the bag. ?Leave the ice on for 20 minutes, 2 3 times a day. If told, put heat on the painful area. Do this as often as told by your doctor. Use the heat sourcethat your doctor recommends, such as a moist heat pack or a heating pad. ?Place a towel between your skin and the heat source. ?Leave the heat on for 20 30 minutes. ?Take off the heat if your skin turns bright red. This is especially important if you are unable tofeel pain, heat, or cold. You may have a greater risk of getting burned. Soak in a warm bath. This can help relieve pain. Activity Avoid bending and other activities that make pain worse. When standing: ?Keep your upper back and neck straight. ?Keep your shoulders pulled back. ?Avoid slouching. When sitting: ?Keep your back straight. ?Relax your shoulders. Do not round your shoulders or pull them backward. Do not sit or intelligence consultant one place for long periods of time. Take short rest breaks during the day. Lying down or standing is usually better than sitting. Resting can help relieve pain. When sitting or lying down for a long time, do some mild activity or stretching. This will help to prevent stiffness and pain. Get regular exercise. Ask your doctor what activities are safe for you. Do not lift anything that is heavier than 10 lb (4.5 kg) or the limit that you are told, until yourdoctor says that it is safe. To prevent injury when you lift things: ?Bend your knees. ?Keep the weight close to your body. ?Avoid twisting. Sleep on a firm mattress. Try lying on your side with your knees slightly bent. If you lie on your back, put a pillow under your knees. Medicines Treatment may include medicines for pain and swelling taken by mouth or put on the skin, prescription pain medicine, or muscle relaxants. Take gvve-cgq-ehfnugc and prescription medicines only as told by your doctor. Ask your doctor if the medicine prescribed to you: ?Requires you to avoid driving or using machinery. ?Can cause trouble pooping (constipation). You may need to take these actions to prevent or treat trouble pooping: ?Drink enough fluid to keep your pee (urine) pale yellow. ?Take kovo-dcy-qzgtdtg or prescription medicines. ?Eat foods that are high in fiber. These include beans, whole grains, and fresh fruits and vegetables. ?Limit foods that are high in fat and sugars. These include fried or sweet foods. General instructions Do not use any products that contain nicotine or tobacco, such as cigarettes, e- cigarettes, and chewing tobacco. If you need help quitting, ask your doctor. Keep all follow-up visits as told by your doctor. This is important. Contact a doctor if: Your pain does not get better with rest or medicine. Your pain gets worse, or you have new pain. You have a high fever. You lose weight very quickly. You have trouble doing your normal activities. Get help right away if: One or both of your legs or feet feel weak. One or both of your legs or feet lose feeling (have numbness). You have trouble controlling when you poop (have a bowel movement) or pee (urinate). You have bad back pain and: ?You feel like you may vomit (nauseous), or you vomit. ?You have pain in your belly (abdomen). ?You have shortness of breath. ?You faint. Summary When back pain lasts longer than 3 months, it is called chronic back pain. Pain may get worse at certain times (flare-ups). Use ice and heat as told by your doctor. Your doctor may tell you to use ice after flare-ups. This information is not intended to replace advice given to you by your health care provider. Make sure you discuss any questions you have with your health care provider. Document Revised: 04/20/2020 Document Reviewed: 04/20/2020 [employer] Patient Education 2022 [email or web address]. Follow Up Care 04/22/2023 20:10:10 With:ANTONIO HUSAIN Address: [address] [place] [phone] Business (1) When:04/25/2023 20:23:39 Comments:Follow-up with your primary care provider in 3 to 5 days. If symptoms worsen, do not improve, or new symptoms arise please report back to emergency department for further evaluation. [facility]01-29-2024 Evaluation + Plan noteExtracted from: Title:ED Note Author:Landon Tidwell PA-C te:04/22/23 Lumbago (M54.50: Low back pa in, unspecified) Orders: ketorolac, 60 mg = 2 mL, Injection, IntraMuscular, Once, Stop date 04/22/23 20:20:00 EST, STAT, Start date 04/22/23 20:20:00 EST, 04/22/23 20:20:00 EST morphine, 4 mg = 1 mL, Injection, IntraMuscular, Once, Stop date 04/22/23 20:19:00 EST, STAT, Start date 04/22/23 20:19:00 EST, 04/22/23 20:19:00 EST [facility]01-18-2024 Hospital Discharge instructions Patient Education 04/11/2023 19:08:19 Chronic Back Pain Chronic Back Pain When back pain lasts longer than 3 months, it is called chronic back pain. The cause of your back pain may not be known. Some common causes include: Wear and tear (degenerative disease) of the bones, ligaments, or disks in your back. Inflammation and stiffness in your back (arthritis). People who have chronic back pain often go through certain periods in which the pain is more intense (flare-ups). Many people can learn to manage the pain with home care. Follow these instructions at home: Pay attention to any changes in your symptoms. Take these actions to help with your pain: Managing pain and stiffness If directed, apply ice to the painful area. Your health care provider may recommend applying ice during the first 24 48 hours after a flare-up begins. To do this: ?Put ice in a plastic bag. ?Place a towel between your skin and the bag. ?Leave the ice on for 20 minutes, 2 3 times per day. If directed, apply heat to the affected area as often as told by your health care provider. Use theheat source that your health care provider recommends, such as a moist heat pack or a heating pad. ?Place a towel between your skin and the heat source. ?Leave the heat on for 20 30 minutes. ?Remove the heat if your skin turns bright red. This is especially important if you are unable to feel pain, heat, or cold. You may have a greater risk of getting burned. Try soaking in a warm tub. Activity Avoid bending and other activities that make the problem worse. Maintain a proper position when standing or sitting: ?When standing, keep your upper back and neck straight, with your shoulders pulled back. Avoid slouching. ?When sitting, keep your back straight and relax your shoulders. Do not round your shoulders or pull them backward. Do not sit or intelligence consultant one place for long periods of time. Take brief periods of rest throughout the day. This will reduce your pain. Resting in a lying or standing position is usually better than sitting to rest. When you are resting for longer periods, mix in some mild activity or stretching between periods ofrest. This will help to prevent stiffness and pain. Get regular exercise. Ask your health care provider what activities are safe for you. Do not lift anything that is heavier than 10 lb (4.5 kg), or the limit that you are told, until your health care provider says that it is safe. Always use proper lifting technique, which includes: ?Bending your knees. ?Keeping the load close to your body. ?Avoiding twisting. Sleep on a firm mattress in a comfortable position. Try lying on your side with your knees slightlybent. If you lie on your back, put a pillow under your knees. Medicines Treatment may include medicines for pain and inflammation taken by mouth or applied to the skin, prescription pain medicine, or muscle relaxants. Take novd-liw-epnkrdz and prescription medicines onlyas told by your health care provider. Ask your health care provider if the medicine prescribed to you: ?Requires you to avoid driving or using machinery. ?Can cause constipation. You may need to take these actions to prevent or treat constipation: ?Drink enough fluid to keep your urine pale yellow. ?Take ilhg-eso-uzkjlbu or prescription medicines. ?Eat foods that are high in fiber, such as beans, whole grains, and fresh fruits and vegetables. ?Limit foods that are high in fat and processed sugars, such as fried or sweet foods. General instructions Do not use any products that contain nicotine or tobacco, such as cigarettes, e- cigarettes, and chewing tobacco. If you need help quitting, ask your health care provider. Keep all follow-up visits as told by your health care provider. This is important. Contact a health care provider if: You have pain that is not relieved with rest or medicine. Your pain gets worse, or you have new pain. You have a high fever. You have rapid weight loss. You have trouble doing your normal activities. Get help right away if: You have weakness or numbness in one or both of your legs or feet. You have trouble controlling your bladder or your bowels. You have severe back pain and have any of the following: ?Nausea or vomiting. ?Pain in your abdomen. ?Shortness of breath or you faint. Summary Chronic back pain is back pain that lasts longer than 3 months. When a flare-up begins, apply ice to the painful area for the first 24 48 hours. Apply a moist heat pad or use a heating pad on the painful area as directed by your health care provider. When you are resting for longer periods, mix in some mild activity or stretching between periods ofrest. This will help to prevent stiffness and pain. This information is not intended to replace advice given to you by your health care provider. Make sure you discuss any questions you have with your health care provider. Document Revised: 04/20/2020 Document Reviewed: 04/20/2020 [employer] Patient Education 2022 [email or web address]. Follow Up Care 04/11/2023 18:29:24 With:ANTONIORadha EMERYKENANPepe Address: [address] [place] [phone] Business (1) When:04/14/2023 18:58:52 [facility]01-18-2024 Evaluation + Plan noteExtracted from: Title:ED Note Author:Robert Taylor PA-C te:04/11/23 Chronic back pain (M54.9: Do rsalgia, unspecified) Other chronic pain (G89.29: Other chronic pain) Orders: ketorolac, 60 mg = 2 mL, Injection, IntraMuscular, Once, Stop date 04/11/23 18:56:00 EST, STAT, Start date 04/11/23 18:56:00 EST, 04/11/23 18:56:00 EST oxycodone, 10 mg = 2 tab(s), Tab, Oral, Once, Stop date 04/11/23 18:57:00 EST, STAT, Start date 04/11/23 18:57:00 EST, 04/11/23 18:57:00 EST [facility]01-18-2024 Hospital Discharge instructions Patient Education 04/11/2023 01:37:11 Chronic Back Pain, Mdws-jz-Vnlp Chronic Back Pain When back pain lasts longer than 3 months, it is called chronic back pain. Pain may get worse at certain times (flare-ups). There are things you can do at home to manage your pain. Follow these instructions at home: Pay attention to any changes in your symptoms. Take these actions to help with your pain: Managing pain and stiffness If told, put ice on the painful area. Your doctor may tell you to use ice for 24 48 hours after theflare-up starts. To do this: ?Put ice in a plastic bag. ?Place a towel between your skin and the bag. ?Leave the ice on for 20 minutes, 2 3 times a day. If told, put heat on the painful area. Do this as often as told by your doctor. Use the heat sourcethat your doctor recommends, such as a moist heat pack or a heating pad. ?Place a towel between your skin and the heat source. ?Leave the heat on for 20 30 minutes. ?Take off the heat if your skin turns bright red. This is especially important if you are unable tofeel pain, heat, or cold. You may have a greater risk of getting burned. Soak in a warm bath. This can help relieve pain. Activity Avoid bending and other activities that make pain worse. When standing: ?Keep your upper back and neck straight. ?Keep your shoulders pulled back. ?Avoid slouching. When sitting: ?Keep your back straight. ?Relax your shoulders. Do not round your shoulders or pull them backward. Do not sit or intelligence consultant one place for long periods of time. Take short rest breaks during the day. Lying down or standing is usually better than sitting. Resting can help relieve pain. When sitting or lying down for a long time, do some mild activity or stretching. This will help to prevent stiffness and pain. Get regular exercise. Ask your doctor what activities are safe for you. Do not lift anything that is heavier than 10 lb (4.5 kg) or the limit that you are told, until yourdoctor says that it is safe. To prevent injury when you lift things: ?Bend your knees. ?Keep the weight close to your body. ?Avoid twisting. Sleep on a firm mattress. Try lying on your side with your knees slightly bent. If you lie on your back, put a pillow under your knees. Medicines Treatment may include medicines for pain and swelling taken by mouth or put on the skin, prescription pain medicine, or muscle relaxants. Take objz-rxv-jyatdws and prescription medicines only as told by your doctor. Ask your doctor if the medicine prescribed to you: ?Requires you to avoid driving or using machinery. ?Can cause trouble pooping (constipation). You may need to take these actions to prevent or treat trouble pooping: ?Drink enough fluid to keep your pee (urine) pale yellow. ?Take fpyv-nce-rnglzkr or prescription medicines. ?Eat foods that are high in fiber. These include beans, whole grains, and fresh fruits and vegetables. ?Limit foods that are high in fat and sugars. These include fried or sweet foods. General instructions Do not use any products that contain nicotine or tobacco, such as cigarettes, e- cigarettes, and chewing tobacco. If you need help quitting, ask your doctor. Keep all follow-up visits as told by your doctor. This is important. Contact a doctor if: Your pain does not get better with rest or medicine. Your pain gets worse, or you have new pain. You have a high fever. You lose weight very quickly. You have trouble doing your normal activities. Get help right away if: One or both of your legs or feet feel weak. One or both of your legs or feet lose feeling (have numbness). You have trouble controlling when you poop (have a bowel movement) or pee (urinate). You have bad back pain and: ?You feel like you may vomit (nauseous), or you vomit. ?You have pain in your belly (abdomen). ?You have shortness of breath. ?You faint. Summary When back pain lasts longer than 3 months, it is called chronic back pain. Pain may get worse at certain times (flare-ups). Use ice and heat as told by your doctor. Your doctor may tell you to use ice after flare-ups. This information is not intended to replace advice given to you by your health care provider. Make sure you discuss any questions you have with your health care provider. Document Revised: 04/20/2020 Document Reviewed: 04/20/2020 [employer] Patient Education 2022 [email or web address]. 04/11/2023 01:37:11 Acute Back Pain, Adult Acute Back Pain, Adult Acute back pain is sudden and usually short-lived. It is often caused by an injury to the muscles and tissues in the back. The injury may result from: A muscle, tendon, or ligament getting overstretched or torn. Ligaments are tissues that connect bones to each other. Lifting something improperly can cause a back strain. Wear and tear (degeneration) of the spinal disks. Spinal disks are circular tissue that provide cushioning between the bones of the spine (vertebrae). Twisting motions, such as while playing sports or doing yard work. A hit to the back. Arthritis. You may have a physical exam, lab tests, and imaging tests to find the cause of your pain. Acute back pain usually goes away with rest and home care. Follow these instructions at home: Managing pain, stiffness, and swelling Take gnqg-qsk-hszmhka and prescription medicines only as told by your health care provider. Treatment may include medicines for pain and inflammation that are taken by mouth or applied to the skin, or muscle relaxants. Your health care provider may recommend applying ice during the first 24 48 hours after your pain starts. To do this: ?Put ice in a plastic bag. ?Place a towel between your skin and the bag. ?Leave the ice on for 20 minutes, 2 3 times a day. ?Remove the ice if your skin turns bright red. This is very important. If you cannot feel pain, heat, or cold, you have a greater risk of damage to the area. If directed, apply heat to the affected area as often as told by your health care provider. Use theheat source that your health care provider recommends, such as a moist heat pack or a heating pad. ?Place a towel between your skin and the heat source. ?Leave the heat on for 20 30 minutes. ?Remove the heat if your skin turns bright red. This is especially important if you are unable to feel pain, heat, or cold. You have a greater risk of getting burned. Activity Do not stay in bed. Staying in bed for more than 1 2 days can delay your recovery. Sit up and stand up straight. Avoid leaning forward when you sit or hunching over when you stand. ?If you work at a desk, sit close to it so you do not need to lean over. Keep your chin tucked in. Keep your neck drawn back, and keep your elbows bent at a 90-degree angle (right angle). ?Sit high and close to the steering wheel when you drive. Add lower back (lumbar) support to your car seat, if needed. Take short walks on even surfaces as soon as you are able. Try to increase the length of time you walk each day. Do not sit, drive, or intelligence consultant one place for more than 30 minutes at a time. Sitting or standing for long periods of time can put stress on your back. Do not drive or use heavy machinery while taking prescription pain medicine. Use proper lifting techniques. When you bend and lift, use positions that put less stress on your back: ?Bend your knees. ?Keep the load close to your body. ?Avoid twisting. Exercise regularly as told by your health care provider. Exercising helps your back heal faster andhelps prevent back injuries by keeping muscles strong and flexible. Work with a physical therapist to make a safe exercise program, as recommended by your health care provider. Do any exercises as told by your physical therapist. Lifestyle Maintain a healthy weight. Extra weight puts stress on your back and makes it difficult to have good posture. Avoid activities or situations that make you feel anxious or stressed. Stress and anxiety increase muscle tension and can make back pain worse. Learn ways to manage anxiety and stress, such as through exercise. General instructions Sleep on a firm mattress in a comfortable position. Try lying on your side with your knees slightlybent. If you lie on your back, put a pillow under your knees. Keep your head and neck in a straight line with your spine (neutral position) when using electronicequipment like smartphones or pads. To do this: ?Raise your smartphone or pad to look at it instead of bending your head or neck to look down. ?Put the smartphone or pad at the level of your face while looking at the screen. Follow your treatment plan as told by your health care provider. This may include: ?Cognitive or behavioral therapy. ?Acupuncture or massage therapy. ?Meditation or yoga. Contact a health care provider if: You have pain that is not relieved with rest or medicine. You have increasing pain going down into your legs or buttocks. Your pain does not improve after 2 weeks. You have pain at night. You lose weight without trying. You have a fever or chills. You develop nausea or vomiting. You develop abdominal pain. Get help right away if: You develop new bowel or bladder control problems. You have unusual weakness or numbness in your arms or legs. You feel faint. These symptoms may represent a serious problem that is an emergency. Do not wait to see if the symptoms will go away. Get medical help right away. Call your local emergency services (911 in the [place] Do not drive yourself to the hospital. Summary Acute back pain is sudden and usually short-lived. Use proper lifting techniques. When you bend and lift, use positions that put less stress on your back. Take kgbe-vwn-fahdyub and prescription medicines only as told by your health care provider, and apply heat or ice as told. This information is not intended to replace advice given to you by your health care provider. Make sure you discuss any questions you have with your health care provider. Document Revised: 06/02/2021 Document Reviewed: 06/02/2021 Elsevier Patient Education 2022 [email or web address]. Follow Up Care 04/10/2023 22:03:35 With:ANTONIO MCELROYPepe Address: [address] [place] [phone] Business (1) When:Within 3 Day(s) [facility]01-12-2024 Hospital Discharge instructions Patient Education 04/05/2023 15:51:34 Hepatitis C Hepatitis C Hepatitis C is a liver infection that is caused by the hepatitis C virus (HCV). The virus infects and causes inflammation in the liver. Hepatitis C can lead to: Loss of liver function (liver failure). Scarring of the liver (cirrhosis). Liver cancer. People with hepatitis C often do not know for months or years that they have this condition. This is because they have no symptoms or may have only mild symptoms. What are the causes? This condition is caused by HCV. The virus can spread from person to person (is contagious). It canspread through: Contact with an infected person's blood, semen, or vaginal fluids. Childbirth. A woman who has hepatitis C can pass it to her baby during . Having received donated blood (blood transfusion) or an organ transplant that was done in the [place] before 1991. What increases the risk? The following factors may make you more likely to develop this condition: Having contact with needles or syringes that have HCV on them (are contaminated). This may happen while injecting drugs, getting a tattoo or body piercing, or receiving acupuncture. Acupuncture is a treatment that inserts thin needles through your skin. Contact also may happen when you: ?Have sex with someone who is infected. The virus can spread through vaginal, oral, or anal sex. ?Receive treatment to filter your blood (kidney dialysis). ?Have a job that involves contact with blood or body fluids, such as in health care. Having HIV (human immunodeficiency virus) or AIDS (acquired immunodeficiency syndrome). What are the signs or symptoms? Symptoms of this condition include: Tiredness (fatigue). Loss of appetite. Nausea or vomiting. Pain in your abdomen. Dark yellow urine. Yellowing of your skin or the white parts of your eyes (jaundice). Itchy skin. Light-colored or noguera stool. Joint pain. Bleeding and bruising that happen often. Fluid buildup in your stomach (ascites). Often, hepatitis C causes no symptoms. How is this diagnosed? This condition is diagnosed with: Blood tests. Other tests that show how well your liver is working. These tests may include: ?Magnetic resonance elastography (MRE). This imaging test uses MRI and sound waves to measure liverstiffness. ?Transient elastography. This imaging test uses ultrasound to measure liver stiffness. ?Liver biopsy. In this test, a tissue sample is taken from your liver and looked at under a microscope. How is this treated? Treatment may depend on how severe your condition is, how long it has lasted, and whether you have liver damage. Treatment may include: Taking antiviral medicines and other medicines. Having follow-up treatments every 6 12 months for infections or other liver problems. Having a liver transplant. Follow these instructions at home: Medicines Take ydba-mrd-mgchfpx and prescription medicines only as told by your health care provider. If you were prescribed an antiviral medicine, take it as told by your health care provider. Do not stop using the antiviral even if you start to feel better. Do not take any new medicines, including cmtf-hol-luuwnaq medicines or supplements, unless your health care provider approves. Activity Rest as needed. Do not have sex unless your health care provider approves. Avoid swimming or using hot tubs if you have open sores or wounds. Return to your normal activities as told by your health care provider. Ask your health care provider what activities are safe for you. Ask your health care provider when you may return to school or work. Eating and drinking Eat a balanced diet with plenty of fruits and vegetables, whole grains, and lean meats or non-meat proteins, such as beans or tofu. Drink enough fluid to keep your urine pale yellow. Do not drink alcohol. General instructions Do not share toothbrushes, nail clippers, or razors. Wash your hands often with soap and water for at least 20 seconds. If soap and water are not available, use alcohol-based hand hip hop artist. Cover any cuts or open sores on your skin to prevent spreading HCV. Keep all follow-up visits. This is important. You may need follow-up visits every 6 12 months. How is this prevented? There is no vaccine for hepatitis C. You can lessen your risk of coming into contact with HCV by making sure you: Wash your hands often with soap and water for at least 20 seconds. Do not share needles or syringes. Use a condom every time you have vaginal, oral, or anal sex. Latex condoms offer the best protection. Avoid handling blood or other body fluids without gloves or other protection. Avoid getting tattoos or body piercings in shops that are not clean. Where to find more information Centers for Disease Control and Prevention: www.cdc.gov/hepatitis World Health Organization: www.who.int Contact a health care provider if you: Have a fever or chills. Have pain or swelling in your abdomen. Pass dark urine. Pass light-colored or noguera stool. Have joint pain. Get help right away if you: Have more fatigue. Lose your appetite. Cannot eat or drink without vomiting. Develop jaundice, or your jaundice gets worse. Bruise or bleed easily. Summary Hepatitis C is a liver infection that is caused by the hepatitis C virus (HCV). This infection can lead to a loss of liver function (liver failure), scarring of the liver (cirrhosis), or liver cancer. HCV can spread from person to person (is contagious). Do not take any medicines, including mwnp-pmw-xqbbfdc medicines or supplements, unless your health care provider approves. This information is not intended to replace advice given to you by your health care provider. Make sure you discuss any questions you have with your health care provider. Document Revised: 01/26/2021 Document Reviewed: 01/26/2021 [employer] Patient Education 2022 [email or web address]. 04/05/2023 15:51:34 Abdominal Pain, Adult Abdominal Pain, Adult Pain in the abdomen (abdominal pain) can be caused by many things. Often, abdominal pain is not serious and it gets better with no treatment or by being treated at home. However, sometimes abdominal pain is serious. Your health care provider will ask questions about your medical history and do a physical exam to try to determine the cause of your abdominal pain. Follow these instructions at home: Medicines Take tldt-yub-bvgujbu and prescription medicines only as told by your health care provider. Do not take a laxative unless told by your health care provider. General instructions Watch your condition for any changes. Drink enough fluid to keep your urine pale yellow. Keep all follow-up visits as told by your health care provider. This is important. Contact a health care provider if: Your abdominal pain changes or gets worse. You are not hungry or you lose weight without trying. You are constipated or have diarrhea for more than 2 3 days. You have pain when you urinate or have a bowel movement. Your abdominal pain wakes you up at night. Your pain gets worse with meals, after eating, or with certain foods. You are vomiting and cannot keep anything down. You have a fever. You have blood in your urine. Get help right away if: Your pain does not go away as soon as your health care provider told you to expect. You cannot stop vomiting. Your pain is only in areas of the abdomen, such as the right side or the left lower portion of the abdomen. Pain on the right side could be caused by appendicitis. You have bloody or black stools, or stools that look like tar. You have severe pain, cramping, or bloating in your abdomen. You have signs of dehydration, such as: ?Dark urine, very little urine, or no urine. ?Cracked lips. ?Dry mouth. ?Sunken eyes. ?Sleepiness. ?Weakness. You have trouble breathing or chest pain. Summary Often, abdominal pain is not serious and it gets better with no treatment or by being treated at home. However, sometimes abdominal pain is serious. Watch your condition for any changes. Take gcym-vee-cpfxful and prescription medicines only as told by your health care provider. Contact a health care provider if your abdominal pain changes or gets worse. Get help right away if you have severe pain, cramping, or bloating in your abdomen. This information is not intended to replace advice given to you by your health care provider. Make sure you discuss any questions you have with your health care provider. Document Revised: 04/29/2020 Document Reviewed: 07/20/2019 [employer] Patient Education 2022 [email or web address]. Follow Up Care 04/05/2023 12:31:48 With:ANTONIO HUSAIN Address: [address] [place] [phone] Business (1) When:04/08/2023 15:38:51 [facility]01-12-2024 Evaluation + Plan noteExtracted from: Title:ED Note Author:Robert Taylor PA-C te:04/05/23 Abdominal pain (R10.9: Unspe cified abdominal pain) Hepatitis C (B19.20: Unspecified viral hepatitis C without hepatic coma) Orders: HYDROmorphone, 1 mg = 1 mL, Injection, IV Push, Once, Stop date 04/05/23 14:42:00 EST, STAT, Start date 04/05/23 14:42:00 EST, 04/05/23 14:42:00 EST morphine, 4 mg = 1 mL, Injection, IV Push, Once, Stop date 04/05/23 13:07:00 EST, STAT, Start date 04/05/23 13:07:00 EST, 04/05/23 13:07:00 EST ondansetron, 4 mg = 2 mL, Injection, IV Push, Once, Stop date 04/05/23 13:07:00 EST, STAT, Start date 04/05/23 13:07:00 EST, 04/05/23 13:07:00 EST [facility]01-10-2024 Hospital Discharge instructions Patient Education 04/02/2023 22:19:34 Chronic Back Pain, Oizd-ok-Emnd Chronic Back Pain When back pain lasts longer than 3 months, it is called chronic back pain. Pain may get worse at certain times (flare-ups). There are things you can do at home to manage your pain. Follow these instructions at home: Pay attention to any changes in your symptoms. Take these actions to help with your pain: Managing pain and stiffness If told, put ice on the painful area. Your doctor may tell you to use ice for 24 48 hours after theflare-up starts. To do this: ?Put ice in a plastic bag. ?Place a towel between your skin and the bag. ?Leave the ice on for 20 minutes, 2 3 times a day. If told, put heat on the painful area. Do this as often as told by your doctor. Use the heat sourcethat your doctor recommends, such as a moist heat pack or a heating pad. ?Place a towel between your skin and the heat source. ?Leave the heat on for 20 30 minutes. ?Take off the heat if your skin turns bright red. This is especially important if you are unable tofeel pain, heat, or cold. You may have a greater risk of getting burned. Soak in a warm bath. This can help relieve pain. Activity Avoid bending and other activities that make pain worse. When standing: ?Keep your upper back and neck straight. ?Keep your shoulders pulled back. ?Avoid slouching. When sitting: ?Keep your back straight. ?Relax your shoulders. Do not round your shoulders or pull them backward. Do not sit or intelligence consultant one place for long periods of time. Take short rest breaks during the day. Lying down or standing is usually better than sitting. Resting can help relieve pain. When sitting or lying down for a long time, do some mild activity or stretching. This will help to prevent stiffness and pain. Get regular exercise. Ask your doctor what activities are safe for you. Do not lift anything that is heavier than 10 lb (4.5 kg) or the limit that you are told, until yourdoctor says that it is safe. To prevent injury when you lift things: ?Bend your knees. ?Keep the weight close to your body. ?Avoid twisting. Sleep on a firm mattress. Try lying on your side with your knees slightly bent. If you lie on your back, put a pillow under your knees. Medicines Treatment may include medicines for pain and swelling taken by mouth or put on the skin, prescription pain medicine, or muscle relaxants. Take xdwk-ips-lsudroh and prescription medicines only as told by your doctor. Ask your doctor if the medicine prescribed to you: ?Requires you to avoid driving or using machinery. ?Can cause trouble pooping (constipation). You may need to take these actions to prevent or treat trouble pooping: ?Drink enough fluid to keep your pee (urine) pale yellow. ?Take jotj-pzl-nnoifro or prescription medicines. ?Eat foods that are high in fiber. These include beans, whole grains, and fresh fruits and vegetables. ?Limit foods that are high in fat and sugars. These include fried or sweet foods. General instructions Do not use any products that contain nicotine or tobacco, such as cigarettes, e- cigarettes, and chewing tobacco. If you need help quitting, ask your doctor. Keep all follow-up visits as told by your doctor. This is important. Contact a doctor if: Your pain does not get better with rest or medicine. Your pain gets worse, or you have new pain. You have a high fever. You lose weight very quickly. You have trouble doing your normal activities. Get help right away if: One or both of your legs or feet feel weak. One or both of your legs or feet lose feeling (have numbness). You have trouble controlling when you poop (have a bowel movement) or pee (urinate). You have bad back pain and: ?You feel like you may vomit (nauseous), or you vomit. ?You have pain in your belly (abdomen). ?You have shortness of breath. ?You faint. Summary When back pain lasts longer than 3 months, it is called chronic back pain. Pain may get worse at certain times (flare-ups). Use ice and heat as told by your doctor. Your doctor may tell you to use ice after flare-ups. This information is not intended to replace advice given to you by your health care provider. Make sure you discuss any questions you have with your health care provider. Document Revised: 04/20/2020 Document Reviewed: 04/20/2020 [employer] Patient Education 2022 [email or web address]. 04/02/2023 22:19:34 Back Exercises, Ltqn-xt-Taen Back Exercises These exercises help to make your trunk and back strong. They also help to keep the lower back flexible. Doing these exercises can help to prevent or lessen pain in your lower back. If you have back pain, try to do these exercises 2 3 times each day or as told by your doctor. As you get better, do the exercises once each day. Repeat the exercises more often as told by your doctor. To stop back pain from coming back, do the exercises once each day, or as told by your doctor. Do exercises exactly as told by your doctor. Stop right away if you feel sudden pain or your pain gets worse. Exercises Single knee to chest Do these steps 3 5 times in a row for each le.Lie on your back on a firm bed or the floor with your legs stretched out. 2.Bring one knee to your chest. 3.Grab your knee or thigh with both hands and hold it in place. 4.Pull on your knee until you feel a gentle stretch in your lower back or butt. 5.Keep doing the stretch for 10 30 seconds. 6.Slowly let go of your leg and straighten it. Pelvic tilt Do these steps 5 10 times in a row: 1.Lie on your back on a firm bed or the floor with your legs stretched out. 2.Bend your knees so they point up to the ceiling. Your feet should be flat on the floor. 3.Tighten your lower belly (abdomen) muscles to press your lower back against the floor. This will make your tailbone point up to the ceiling instead of pointing down to your feet or the floor. 4.Stay in this position for 5 10 seconds while you gently tighten your muscles and breathe evenly. Cat cow Do these steps until your lower back bends more easily: 1.Get on your hands and knees on a firm bed or the floor. Keep your hands under your shoulders, andkeep your knees under your hips. You may put padding under your knees. 2.Let your head hang down toward your chest. Tighten (contract) the muscles in your belly. Point your tailbone toward the floor so your lower back becomes rounded like the back of a cat. 3.Stay in this position for 5 seconds. 4.Slowly lift your head. Let the muscles of your belly relax. Point your tailbone up toward the ceiling so your back forms a sagging arch like the back of a cow. 5.Stay in this position for 5 seconds. Press-ups Do these steps 5 10 times in a row: 1.Lie on your belly (face-down) on a firm bed or the floor. 2.Place your hands near your head, about shoulder-width apart. 3.While you keep your back relaxed and keep your hips on the floor, slowly straighten your arms to raise the top half of your body and lift your shoulders. Do not use your back muscles. You may change where you place your hands to make yourself more comfortable. 4.Stay in this position for 5 seconds. Keep your back relaxed. 5.Slowly return to lying flat on the floor. Bridges Do these steps 10 times in a row: 1.Lie on your back on a firm bed or the floor. 2.Bend your knees so they point up to the ceiling. Your feet should be flat on the floor. Your armsshould be flat at your sides, next to your body. 3.Tighten your butt muscles and lift your butt off the floor until your waist is almost as high as your knees. If you do not feel the muscles working in your butt and the back of your thighs, slide your feet 1 2 inches (2.5 5 cm) farther away from your butt. 4.Stay in this position for 3 5 seconds. 5.Slowly lower your butt to the floor, and let your butt muscles relax. If this exercise is too easy, try doing it with your arms crossed over your chest. Belly crunches Do these steps 5 10 times in a row: 1.Lie on your back on a firm bed or the floor with your legs stretched out. 2.Bend your knees so they point up to the ceiling. Your feet should be flat on the floor. 3.Cross your arms over your chest. 4.Tip your chin a little bit toward your chest, but do not bend your neck. 5.Tighten your belly muscles and slowly raise your chest just enough to lift your shoulder blades atiny bit off the floor. Avoid raising your body higher than that because it can put too much stresson your lower back. 6.Slowly lower your chest and your head to the floor. Back lifts Do these steps 5 10 times in a row: 1.Lie on your belly (face-down) with your arms at your sides, and rest your forehead on the floor. 2.Tighten the muscles in your legs and your butt. 3.Slowly lift your chest off the floor while you keep your hips on the floor. Keep the back of yourhead in line with the curve in your back. Look at the floor while you do this. 4.Stay in this position for 3 5 seconds. 5.Slowly lower your chest and your face to the floor. Contact a doctor if: Your back pain gets a lot worse when you do an exercise. Your back pain does not get better within 2 hours after you exercise. If you have any of these problems, stop doing the exercises. Do not do them again unless your doctor says it is okay. Get help right away if: You have sudden, very bad back pain. If this happens, stop doing the exercises. Do not do them again unless your doctor says it is okay. This information is not intended to replace advice given to you by your health care provider. Make sure you discuss any questions you have with your health care provider. Document Revised: 05/24/2021 Document Reviewed: 05/24/2021 [employer] Patient Education 2022 [employer] Follow Up Care 04/02/2023 21:42:13 With:ANTONIO HUSAIN Address: [address] [place] [phone] Business (1) When:04/05/2023 21:59:55 Comments:You can take the naproxen every 12 hours as needed for for pain you can use the Robaxin every 8 hours as needed for pain. Please follow-up with your primary care doctor next 2 to 3 days. Please return to the ED for any new or worsening symptoms. [facility]01-09-2024 Evaluation + Plan noteExtracted from: Title:ED Note Author:Elisa Sánchez DO Date :04/02/23 Chronic back pain (M54.9: Do rsalgia, unspecified) Other chronic pain (G89.29: Other chronic pain) Orders: ketorolac, 30 mg = 1 mL, Injection, IntraMuscular, Once, Stop date 04/02/23 21:58:00 EST, STAT, Start date 04/02/23 21:58:00 EST, 04/02/23 21:58:00 EST methocarbamol, 500 mg = 1 tab(s), Oral, TID, X 3 day(s), # 9 tab(s), Refills(s) 0, Pharmacy: [facility]/pharmacy #[id number], 160, cm, 04/02/23 21:48:00 EST, Height/Length Dosing, 110, kg, 04/02/23 21:48:00 EST, Weight Dosing naproxen, 500 mg = 1 tab(s), Oral, BID, PRN for pain, # 20 tab(s), Refills(s) 0, Pharmacy: [facility]/pharmacy #[id number], 160, cm, 04/02/23 21:48:00 EST, Height/Length Dosing, 110, kg, 04/02/23 21:48:00 EST, Weight Dosing orphenadrine, 60 mg = 2 mL, Injection, IntraMuscular, Once, Stop date 04/02/23 21:58:00 EST, STAT, Start date 04/02/23 21:58:00 EST, 04/02/23 21:58:00 EST oxycodone, 5 mg = 1 tab(s), Tab, Oral, Once, Stop date 04/02/23 21:59:00 EST, STAT, Start date 04/02/23 21:59:00 EST, 04/02/23 21:59:00 EST [facility]01-08-2024 Evaluation + Plan note* Assessment & Plan Note - Chidi Yuen MD - 04/01/2023 9:14 AM ESTAssociated Problem(s): Chronic hepatitis C without hepatic coma (CMS/HCC) This patient has chronic Hepatitis C infection with no evidence of advanced fibrosis. We discussed the natural history of hepatitis C and ways to prevent transmission to others. Specifically we emphasized the importance of keeping all grooming tools including razors, toothbrushes and hairbrushes away from the reach of others. We emphasized the importance of proper dressing of all wounds to avoid exposing others to blood We advised avoidance of sexual contact in the setting of bleeding or genital sores or wounds We emphasized the critical importance of commitment to lifelong abstinence We advised avoidance of raw fish and shellfish which can harbor bacteria which can injure the liver We advised diet and exercise to avoid weight gain and potential fatty liver which may exacerbate liver disease We will perform a work up for causes of chronic liver disease including inheritable, viral and autoimmune causes We will vaccinate against Hepatitis A and/or B if not immune We will check an ultrasound of the liver to assess for evidence of advanced chronic liver disease We will perform a fibroscan to assess for the presence and severity of steatosis and fibrosis We will plan to prescribe HCV meds pending the above We will see this patient in 6 weeks [facility] Work Phone: 1(635) 357-751301-08-2024 Miscellaneous Notes* Assessment & Plan Note - Chidi Yuen MD - 04/01/2023 9:14 AM ESTAssociated Problem(s): Chronic hepatitis C without hepatic coma (CMS/HCC) This patient has chronic Hepatitis C infection with no evidence of advanced fibrosis. We discussed the natural history of hepatitis C and ways to prevent transmission to others. Specifically we emphasized the importance of keeping all grooming tools including razors, toothbrushes and hairbrushes away from the reach of others. We emphasized the importance of proper dressing of all wounds to avoid exposing others to blood We advised avoidance of sexual contact in the setting of bleeding or genital sores or wounds We emphasized the critical importance of commitment to lifelong abstinence We advised avoidance of raw fish and shellfish which can harbor bacteria which can injure the liver We advised diet and exercise to avoid weight gain and potential fatty liver which may exacerbate liver disease We will perform a work up for causes of chronic liver disease including inheritable, viral and autoimmune causes We will vaccinate against Hepatitis A and/or B if not immune We will check an ultrasound of the liver to assess for evidence of advanced chronic liver disease We will perform a fibroscan to assess for the presence and severity of steatosis and fibrosis We will plan to prescribe HCV meds pending the above We will see this patient in 6 weeks documented in this [facility] Work Phone: 1([phone]) 186-537401-08-2024 History of Present illness Narrative* Chidi Yuen MD - 04/01/2023 8:20 AM EST Subjective She has known HCV infection since 2014 in the setting of an opioid use disorder in prolonged remission. She doesn't drink alcohol. She smokes 1/2 PPD. She denies fluid overload or cognitive impairment. Review of Systems Constitutional: Positive for fatigue. Negative for appetite change. HENT: Negative. Respiratory: Negative. Negative for cough and shortness of breath. Gastrointestinal: Positive for abdominal pain. Endocrine: Positive for cold intolerance. Skin: Negative. Neurological: Negative for seizures and speech difficulty. Physical Exam Vitals reviewed. Constitutional: General: She is awake. Cardiovascular: Rate and Rhythm: Normal rate and regular rhythm. Pulmonary: Effort: Pulmonary effort is normal. Breath sounds: Normal breath sounds. Neurological: Mental Status: She is alert and oriented to person, place, and time. Psychiatric: Attention and Perception: Attention and perception normal. Behavior: Behavior normal. LIVER LABS: No results found for: ALBUMIN , BILITOT , BILIDIR , ALKPHOS , ALT , AST , PROT No results found for: NA , CREATININE , BILITOT , INR Lab Results Component Value Date HEPCAB Reactive (A) 02/13/2023 Lab Results Component Value Date HEPCAB Reactive (A) 02/13/2023 HCVRNAPCR Detected (A) 02/13/2023 No results found for: HEPBSAG , HEPBSAB , HEPBCAB , HBVDNAPCRIUM , HBVDNAQNPCRL , HBVDNAPCR No results found for: GFIH306 , KYDI767 === 02/13/23 === US ABDOMEN LIMITED LIVER - Impression - No focal intrahepatic lesions noted. The patient is status post cholecystectomy. MACRO: None Signed by: Harshad Tran 02/14/2023 7:30 AM Dictation workstation: [id number] Chronic hepatitis C without hepatic coma (CMS/HCC) This patient has chronic Hepatitis C infection with no evidence of advanced fibrosis. We discussed the natural history of hepatitis C and ways to prevent transmission to others. Specifically we emphasized the importance of keeping all grooming tools including razors, toothbrushes and hairbrushes away from the reach of others. We emphasized the importance of proper dressing of all wounds to avoid exposing others to blood We advised avoidance of sexual contact in the setting of bleeding or genital sores or wounds We emphasized the critical importance of commitment to lifelong abstinence We advised avoidance of raw fish and shellfish which can harbor bacteria which can injure the liver We advised diet and exercise to avoid weight gain and potential fatty liver which may exacerbate liver disease We will perform a work up for causes of chronic liver disease including inheritable, viral and autoimmune causes We will vaccinate against Hepatitis A and/or B if not immune We will check an ultrasound of the liver to assess for evidence of advanced chronic liver disease We will perform a fibroscan to assess for the presence and severity of steatosis and fibrosis We will plan to prescribe HCV meds pending the above We will see this patient in 6 weeks documented in this [facility] Work Phone: 1([phone]) 877-371801-08-2024 Instructions* Patient Instructions* Elke Haas RN - 04/01/2023 8:20 AM EST [phone] (See below for department name when scheduling) [x] LABS:due date : Now (Labs can be done at any location) A workup for underlying causes of liver disease has been ordered. This includes checking to see if you are protected against Hepatitis A & B. If you are not, it is recommended that anyone with chronic liver disease be vaccinated. [x] LIVER ELASTOGRAPHY aka Fibroscan (Department Gastro) (This test is not done in radiology) Type of liver elastography. A special ultrasound that measures scarring (fibrosis) and fat (steatosis) in the liver. The Fibroscan is located at the following locations: [facility], [facility], [facility]. YOU SHOULD NOT EAT OR DRINK 3 HOURS BEFORE THE EXAM. [x] FOLLOW UP (Department Gastro): due date : 6 Week If you have any questions or need assistance, please don't hesitate to contact us. Dr. Yuen: Office [phone] Hepatology Nurse Coordinator: Elke SEXTON [phone] documented in this [facility] Work Phone: 1(537) 611-663401-02-2024 Hospital Discharge instructions Patient Education 03/26/2023 12:45:13 Migraine Headache Migraine Headache A migraine headache is an intense, throbbing pain on one side or both sides of the head. Migraine headaches may also cause other symptoms, such as nausea, vomiting, and sensitivity to light and noise. A migraine headache can last from 4 hours to 3 days. Talk with your doctor about what things may bring on (trigger) your migraine headaches. What are the causes? The exact cause of this condition is not known. However, a migraine may be caused when nerves in the brain become irritated and release chemicals that cause inflammation of blood vessels. This inflammation causes pain. This condition may be triggered or caused by: Drinking alcohol. Smoking. Taking medicines, such as: ?Medicine used to treat chest pain (nitroglycerin). ? control pills. ?Estrogen. ?Certain blood pressure medicines. Eating or drinking products that contain nitrates, glutamate, aspartame, or tyramine. Aged cheeses,chocolate, or caffeine may also be triggers. Doing physical activity. Other things that may trigger a migraine headache include: Menstruation. . Hunger. Stress. Lack of sleep or too much sleep. Weather changes. Fatigue. What increases the risk? The following factors may make you more likely to experience migraine headaches: Being a certain age. This condition is more common in people who are 25 55 years old. Being female. Having a family history of migraine headaches. Being . Having a mental health condition, such as depression or anxiety. Being obese. What are the signs or symptoms? The main symptom of this condition is pulsating or throbbing pain. This pain may: Happen in any area of the head, such as on one side or both sides. Interfere with daily activities. Get worse with physical activity. Get worse with exposure to bright lights or loud noises. Other symptoms may include: Nausea. Vomiting. Dizziness. General sensitivity to bright lights, loud noises, or smells. Before you get a migraine headache, you may get warning signs (an aura). An aura may include: Seeing flashing lights or having blind spots. Seeing bright spots, halos, or zigzag lines. Having tunnel vision or blurred vision. Having numbness or a tingling feeling. Having trouble talking. Having muscle weakness. Some people have symptoms after a migraine headache (postdromal phase), such as: Feeling tired. Difficulty concentrating. How is this diagnosed? A migraine headache can be diagnosed based on: Your symptoms. A physical exam. Tests, such as: ?CT scan or an MRI of the head. These imaging tests can help rule out other causes of headaches. ?Taking fluid from the spine (lumbar puncture) and analyzing it (cerebrospinal fluid analysis, or CSF analysis). How is this treated? This condition may be treated with medicines that: Relieve pain. Relieve nausea. Prevent migraine headaches. Treatment for this condition may also include: Acupuncture. Lifestyle changes like avoiding foods that trigger migraine headaches. Biofeedback. Cognitive behavioral therapy. Follow these instructions at home: Medicines Take zugg-oip-gfqcddc and prescription medicines only as told by your health care provider. Ask your health care provider if the medicine prescribed to you: ?Requires you to avoid driving or using heavy machinery. ?Can cause constipation. You may need to take these actions to prevent or treat constipation: ?Drink enough fluid to keep your urine pale yellow. ?Take tkvl-ciz-xizavxg or prescription medicines. ?Eat foods that are high in fiber, such as beans, whole grains, and fresh fruits and vegetables. ?Limit foods that are high in fat and processed sugars, such as fried or sweet foods. Lifestyle Do not drink alcohol. Do not use any products that contain nicotine or tobacco, such as cigarettes, e- cigarettes, and chewing tobacco. If you need help quitting, ask your health care provider. Get at least 8 hours of sleep every night. Find ways to manage stress, such as meditation, deep breathing, or yoga. General instructions Keep a journal to find out what may trigger your migraine headaches. For example, write down: ?What you eat and drink. ?How much sleep you get. ?Any change to your diet or medicines. If you have a migraine headache: ?Avoid things that make your symptoms worse, such as bright lights. ?It may help to lie down in a dark, quiet room. ?Do not drive or use heavy machinery. ?Ask your health care provider what activities are safe for you while you are experiencing symptoms. Keep all follow-up visits as told by your health care provider. This is important. Contact a health care provider if: You develop symptoms that are different or more severe than your usual migraine headache symptoms. You have more than 15 headache days in one month. Get help right away if: Your migraine headache becomes severe. Your migraine headache lasts longer than 72 hours. You have a fever. You have a stiff neck. You have vision loss. Your muscles feel weak or like you cannot control them. You start to lose your balance often. You have trouble walking. You faint. You have a seizure. Summary A migraine headache is an intense, throbbing pain on one side or both sides of the head. Migraines may also cause other symptoms, such as nausea, vomiting, and sensitivity to light and noise. This condition may be treated with medicines and lifestyle changes. You may also need to avoid certain things that trigger a migraine headache. Keep a journal to find out what may trigger your migraine headaches. Contact your health care provider if you have more than 15 headache days in a month or you develop symptoms that are different or more severe than your usual migraine headache symptoms. This information is not intended to replace advice given to you by your health care provider. Make sure you discuss any questions you have with your health care provider. Document Revised: 07/03/2019 Document Reviewed: 04/23/2019 [employer] Patient Education 2022 [email or web address]. Follow Up Care 03/26/2023 10:48:18 With:ANTONIO SOCORRO Address: [address] [place] [phone] Business (1) When:Within 3 Day(s) [facility]01-02-2024 Evaluation + Plan noteExtracted from: Title:ED Note Author:Arnaldo SLATER Jorge Date:03/26 Migraine (G43.909: Migraine, unspecified, not intractable, without status migrainosus) Orders: diphenhydrAMINE, 25 mg = 0.5 mL, Injection, IV Push, Once, Stop date 03/26/23 11:06:00 EST, STAT, Start date 03/26/23 11:06:00 EST, 03/26/23 11:06:00 EST ketorolac, 30 mg = 1 mL, Injection, IV Push, Once, Stop date 03/26/23 11:06:00 EST, STAT, Start date 03/26/23 11:06:00 EST, 03/26/23 11:06:00 EST metoclopramide, 10 mg = 1 tab(s), Oral, TID, X 5 day(s), # 15 tab(s), Refills(s) 0, Pharmacy: [facility]/pharmacy #[id number], 160, cm, 03/26/23 10:58:00 EST, Height/Length Dosing, 110, kg, 03/26/23 10:58:00 EST, Weight Dosing metoclopramide, 10 mg = 2 mL, Injection, IV Push, Once, Stop date 03/26/23 11:06:00 EST, STAT, Start date 03/26/23 11:06:00 EST, 03/26/23 11:06:00 EST Sodium Chloride 0.9% intravenous solution, 1,000 mL, Soln-IV, IV, Once, Stop date 03/26/23 11:06:00 EST, STAT, Start date 03/26/23 11:06:00 EST, Infuse over 61, minute(s) [facility]12-30-2023 Hospital Discharge instructions Patient Education 03/23/2023 13:57:23 Acute Back Pain, Adult Acute Back Pain, Adult Acute back pain is sudden and usually short-lived. It is often caused by an injury to the muscles and tissues in the back. The injury may result from: A muscle, tendon, or ligament getting overstretched or torn. Ligaments are tissues that connect bones to each other. Lifting something improperly can cause a back strain. Wear and tear (degeneration) of the spinal disks. Spinal disks are circular tissue that provide cushioning between the bones of the spine (vertebrae). Twisting motions, such as while playing sports or doing yard work. A hit to the back. Arthritis. You may have a physical exam, lab tests, and imaging tests to find the cause of your pain. Acute back pain usually goes away with rest and home care. Follow these instructions at home: Managing pain, stiffness, and swelling Take juym-edm-rhcytje and prescription medicines only as told by your health care provider. Treatment may include medicines for pain and inflammation that are taken by mouth or applied to the skin, or muscle relaxants. Your health care provider may recommend applying ice during the first 24 48 hours after your pain starts. To do this: ?Put ice in a plastic bag. ?Place a towel between your skin and the bag. ?Leave the ice on for 20 minutes, 2 3 times a day. ?Remove the ice if your skin turns bright red. This is very important. If you cannot feel pain, heat, or cold, you have a greater risk of damage to the area. If directed, apply heat to the affected area as often as told by your health care provider. Use theheat source that your health care provider recommends, such as a moist heat pack or a heating pad. ?Place a towel between your skin and the heat source. ?Leave the heat on for 20 30 minutes. ?Remove the heat if your skin turns bright red. This is especially important if you are unable to feel pain, heat, or cold. You have a greater risk of getting burned. Activity Do not stay in bed. Staying in bed for more than 1 2 days can delay your recovery. Sit up and stand up straight. Avoid leaning forward when you sit or hunching over when you stand. ?If you work at a desk, sit close to it so you do not need to lean over. Keep your chin tucked in. Keep your neck drawn back, and keep your elbows bent at a 90-degree angle (right angle). ?Sit high and close to the steering wheel when you drive. Add lower back (lumbar) support to your car seat, if needed. Take short walks on even surfaces as soon as you are able. Try to increase the length of time you walk each day. Do not sit, drive, or intelligence consultant one place for more than 30 minutes at a time. Sitting or standing for long periods of time can put stress on your back. Do not drive or use heavy machinery while taking prescription pain medicine. Use proper lifting techniques. When you bend and lift, use positions that put less stress on your back: ?Bend your knees. ?Keep the load close to your body. ?Avoid twisting. Exercise regularly as told by your health care provider. Exercising helps your back heal faster andhelps prevent back injuries by keeping muscles strong and flexible. Work with a physical therapist to make a safe exercise program, as recommended by your health care provider. Do any exercises as told by your physical therapist. Lifestyle Maintain a healthy weight. Extra weight puts stress on your back and makes it difficult to have good posture. Avoid activities or situations that make you feel anxious or stressed. Stress and anxiety increase muscle tension and can make back pain worse. Learn ways to manage anxiety and stress, such as through exercise. General instructions Sleep on a firm mattress in a comfortable position. Try lying on your side with your knees slightlybent. If you lie on your back, put a pillow under your knees. Keep your head and neck in a straight line with your spine (neutral position) when using electronicequipment like smartphones or pads. To do this: ?Raise your smartphone or pad to look at it instead of bending your head or neck to look down. ?Put the smartphone or pad at the level of your face while looking at the screen. Follow your treatment plan as told by your health care provider. This may include: ?Cognitive or behavioral therapy. ?Acupuncture or massage therapy. ?Meditation or yoga. Contact a health care provider if: You have pain that is not relieved with rest or medicine. You have increasing pain going down into your legs or buttocks. Your pain does not improve after 2 weeks. You have pain at night. You lose weight without trying. You have a fever or chills. You develop nausea or vomiting. You develop abdominal pain. Get help right away if: You develop new bowel or bladder control problems. You have unusual weakness or numbness in your arms or legs. You feel faint. These symptoms may represent a serious problem that is an emergency. Do not wait to see if the symptoms will go away. Get medical help right away. Call your local emergency services (911 in the [place] Do not drive yourself to the hospital. Summary Acute back pain is sudden and usually short-lived. Use proper lifting techniques. When you bend and lift, use positions that put less stress on your back. Take mwvk-nkz-rksxmpj and prescription medicines only as told by your health care provider, and apply heat or ice as told. This information is not intended to replace advice given to you by your health care provider. Make sure you discuss any questions you have with your health care provider. Document Revised: 06/02/2021 Document Reviewed: 06/02/2021 [employer] Patient Education 2022 [email or web address]. 03/23/2023 13:57:23 Chronic Back Pain, Iqgl-ri-Zryu Chronic Back Pain When back pain lasts longer than 3 months, it is called chronic back pain. Pain may get worse at certain times (flare-ups). There are things you can do at home to manage your pain. Follow these instructions at home: Pay attention to any changes in your symptoms. Take these actions to help with your pain: Managing pain and stiffness If told, put ice on the painful area. Your doctor may tell you to use ice for 24 48 hours after theflare-up starts. To do this: ?Put ice in a plastic bag. ?Place a towel between your skin and the bag. ?Leave the ice on for 20 minutes, 2 3 times a day. If told, put heat on the painful area. Do this as often as told by your doctor. Use the heat sourcethat your doctor recommends, such as a moist heat pack or a heating pad. ?Place a towel between your skin and the heat source. ?Leave the heat on for 20 30 minutes. ?Take off the heat if your skin turns bright red. This is especially important if you are unable tofeel pain, heat, or cold. You may have a greater risk of getting burned. Soak in a warm bath. This can help relieve pain. Activity Avoid bending and other activities that make pain worse. When standing: ?Keep your upper back and neck straight. ?Keep your shoulders pulled back. ?Avoid slouching. When sitting: ?Keep your back straight. ?Relax your shoulders. Do not round your shoulders or pull them backward. Do not sit or intelligence consultant one place for long periods of time. Take short rest breaks during the day. Lying down or standing is usually better than sitting. Resting can help relieve pain. When sitting or lying down for a long time, do some mild activity or stretching. This will help to prevent stiffness and pain. Get regular exercise. Ask your doctor what activities are safe for you. Do not lift anything that is heavier than 10 lb (4.5 kg) or the limit that you are told, until yourdoctor says that it is safe. To prevent injury when you lift things: ?Bend your knees. ?Keep the weight close to your body. ?Avoid twisting. Sleep on a firm mattress. Try lying on your side with your knees slightly bent. If you lie on your back, put a pillow under your knees. Medicines Treatment may include medicines for pain and swelling taken by mouth or put on the skin, prescription pain medicine, or muscle relaxants. Take rxvi-qmt-ceeskhn and prescription medicines only as told by your doctor. Ask your doctor if the medicine prescribed to you: ?Requires you to avoid driving or using machinery. ?Can cause trouble pooping (constipation). You may need to take these actions to prevent or treat trouble pooping: ?Drink enough fluid to keep your pee (urine) pale yellow. ?Take aedh-itg-eawnqfc or prescription medicines. ?Eat foods that are high in fiber. These include beans, whole grains, and fresh fruits and vegetables. ?Limit foods that are high in fat and sugars. These include fried or sweet foods. General instructions Do not use any products that contain nicotine or tobacco, such as cigarettes, e- cigarettes, and chewing tobacco. If you need help quitting, ask your doctor. Keep all follow-up visits as told by your doctor. This is important. Contact a doctor if: Your pain does not get better with rest or medicine. Your pain gets worse, or you have new pain. You have a high fever. You lose weight very quickly. You have trouble doing your normal activities. Get help right away if: One or both of your legs or feet feel weak. One or both of your legs or feet lose feeling (have numbness). You have trouble controlling when you poop (have a bowel movement) or pee (urinate). You have bad back pain and: ?You feel like you may vomit (nauseous), or you vomit. ?You have pain in your belly (abdomen). ?You have shortness of breath. ?You faint. Summary When back pain lasts longer than 3 months, it is called chronic back pain. Pain may get worse at certain times (flare-ups). Use ice and heat as told by your doctor. Your doctor may tell you to use ice after flare-ups. This information is not intended to replace advice given to you by your health care provider. Make sure you discuss any questions you have with your health care provider. Document Revised: 04/20/2020 Document Reviewed: 04/20/2020 [employer] Patient Education 2022 [email or web address]. 03/23/2023 13:57:23 Back Exercises, Khvr-vr-Mupg Back Exercises These exercises help to make your trunk and back strong. They also help to keep the lower back flexible. Doing these exercises can help to prevent or lessen pain in your lower back. If you have back pain, try to do these exercises 2 3 times each day or as told by your doctor. As you get better, do the exercises once each day. Repeat the exercises more often as told by your doctor. To stop back pain from coming back, do the exercises once each day, or as told by your doctor. Do exercises exactly as told by your doctor. Stop right away if you feel sudden pain or your pain gets worse. Exercises Single knee to chest Do these steps 3 5 times in a row for each le.Lie on your back on a firm bed or the floor with your legs stretched out. 2.Bring one knee to your chest. 3.Grab your knee or thigh with both hands and hold it in place. 4.Pull on your knee until you feel a gentle stretch in your lower back or butt. 5.Keep doing the stretch for 10 30 seconds. 6.Slowly let go of your leg and straighten it. Pelvic tilt Do these steps 5 10 times in a row: 1.Lie on your back on a firm bed or the floor with your legs stretched out. 2.Bend your knees so they point up to the ceiling. Your feet should be flat on the floor. 3.Tighten your lower belly (abdomen) muscles to press your lower back against the floor. This will make your tailbone point up to the ceiling instead of pointing down to your feet or the floor. 4.Stay in this position for 5 10 seconds while you gently tighten your muscles and breathe evenly. Cat cow Do these steps until your lower back bends more easily: 1.Get on your hands and knees on a firm bed or the floor. Keep your hands under your shoulders, andkeep your knees under your hips. You may put padding under your knees. 2.Let your head hang down toward your chest. Tighten (contract) the muscles in your belly. Point your tailbone toward the floor so your lower back becomes rounded like the back of a cat. 3.Stay in this position for 5 seconds. 4.Slowly lift your head. Let the muscles of your belly relax. Point your tailbone up toward the ceiling so your back forms a sagging arch like the back of a cow. 5.Stay in this position for 5 seconds. Press-ups Do these steps 5 10 times in a row: 1.Lie on your belly (face-down) on a firm bed or the floor. 2.Place your hands near your head, about shoulder-width apart. 3.While you keep your back relaxed and keep your hips on the floor, slowly straighten your arms to raise the top half of your body and lift your shoulders. Do not use your back muscles. You may change where you place your hands to make yourself more comfortable. 4.Stay in this position for 5 seconds. Keep your back relaxed. 5.Slowly return to lying flat on the floor. Bridges Do these steps 10 times in a row: 1.Lie on your back on a firm bed or the floor. 2.Bend your knees so they point up to the ceiling. Your feet should be flat on the floor. Your armsshould be flat at your sides, next to your body. 3.Tighten your butt muscles and lift your butt off the floor until your waist is almost as high as your knees. If you do not feel the muscles working in your butt and the back of your thighs, slide your feet 1 2 inches (2.5 5 cm) farther away from your butt. 4.Stay in this position for 3 5 seconds. 5.Slowly lower your butt to the floor, and let your butt muscles relax. If this exercise is too easy, try doing it with your arms crossed over your chest. Belly crunches Do these steps 5 10 times in a row: 1.Lie on your back on a firm bed or the floor with your legs stretched out. 2.Bend your knees so they point up to the ceiling. Your feet should be flat on the floor. 3.Cross your arms over your chest. 4.Tip your chin a little bit toward your chest, but do not bend your neck. 5.Tighten your belly muscles and slowly raise your chest just enough to lift your shoulder blades atiny bit off the floor. Avoid raising your body higher than that because it can put too much stresson your lower back. 6.Slowly lower your chest and your head to the floor. Back lifts Do these steps 5 10 times in a row: 1.Lie on your belly (face-down) with your arms at your sides, and rest your forehead on the floor. 2.Tighten the muscles in your legs and your butt. 3.Slowly lift your chest off the floor while you keep your hips on the floor. Keep the back of yourhead in line with the curve in your back. Look at the floor while you do this. 4.Stay in this position for 3 5 seconds. 5.Slowly lower your chest and your face to the floor. Contact a doctor if: Your back pain gets a lot worse when you do an exercise. Your back pain does not get better within 2 hours after you exercise. If you have any of these problems, stop doing the exercises. Do not do them again unless your doctor says it is okay. Get help right away if: You have sudden, very bad back pain. If this happens, stop doing the exercises. Do not do them again unless your doctor says it is okay. This information is not intended to replace advice given to you by your health care provider. Make sure you discuss any questions you have with your health care provider. Document Revised: 05/24/2021 Document Reviewed: 05/24/2021 [employer] Patient Education 2022 [employer] Follow Up Care 03/23/2023 12:41:35 With:[facility] [phone] Address:Unknown When:03/26/2023 13:05:55 With:ANTONIO HUSAIN Address: [address] [place] [phone] Business (1) When:03/26/2023 13:05:48 Comments:Follow-up with your primary care provider in 3 to 5 days. If symptoms worsen, do not improve, or new symptoms arise please report back to emergency department for further evaluation. [facility]12-30-2023 Evaluation + Plan noteExtracted from: Title:ED Note Author:Landon Tidwell PA-C te:03/23/23 Chronic back pain (M54.9: Do rsalgia, unspecified) Other chronic pain (G89.29: Other chronic pain) Orders: ibuprofen, 800 mg = 1 tab(s), Oral, q8hr, # 30 tab(s), Refills(s) 0, Pharmacy: [facility]/pharmacy #[id number], 160, cm, 03/23/23 12:50:00 EST, Height/Length Dosing, 109, kg, 03/23/23 12:50:00 EST, Weight Dosing ketorolac, 60 mg = 2 mL, Injection, IntraMuscular, Once, Stop date 03/23/23 13:03:00 EST, STAT, Start date 03/23/23 13:03:00 EST, 03/23/23 13:03:00 EST morphine, 4 mg = 1 mL, Injection, IntraMuscular, Once, Stop date 03/23/23 13:03:00 EST, STAT, Start date 03/23/23 13:03:00 EST, 03/23/23 13:03:00 EST orphenadrine, 60 mg = 2 mL, Injection, IntraMuscular, Once, Stop date 03/23/23 13:03:00 EST, STAT, Start date 03/23/23 13:03:00 EST, 03/23/23 13:03:00 EST [facility]12-27-2023 Hospital Discharge instructions Patient Education 03/20/2023 13:38:51 Chronic Back Pain Chronic Back Pain When back pain lasts longer than 3 months, it is called chronic back pain. The cause of your back pain may not be known. Some common causes include: Wear and tear (degenerative disease) of the bones, ligaments, or disks in your back. Inflammation and stiffness in your back (arthritis). People who have chronic back pain often go through certain periods in which the pain is more intense (flare-ups). Many people can learn to manage the pain with home care. Follow these instructions at home: Pay attention to any changes in your symptoms. Take these actions to help with your pain: Managing pain and stiffness If directed, apply ice to the painful area. Your health care provider may recommend applying ice during the first 24 48 hours after a flare-up begins. To do this: ?Put ice in a plastic bag. ?Place a towel between your skin and the bag. ?Leave the ice on for 20 minutes, 2 3 times per day. If directed, apply heat to the affected area as often as told by your health care provider. Use theheat source that your health care provider recommends, such as a moist heat pack or a heating pad. ?Place a towel between your skin and the heat source. ?Leave the heat on for 20 30 minutes. ?Remove the heat if your skin turns bright red. This is especially important if you are unable to feel pain, heat, or cold. You may have a greater risk of getting burned. Try soaking in a warm tub. Activity Avoid bending and other activities that make the problem worse. Maintain a proper position when standing or sitting: ?When standing, keep your upper back and neck straight, with your shoulders pulled back. Avoid slouching. ?When sitting, keep your back straight and relax your shoulders. Do not round your shoulders or pull them backward. Do not sit or intelligence consultant one place for long periods of time. Take brief periods of rest throughout the day. This will reduce your pain. Resting in a lying or standing position is usually better than sitting to rest. When you are resting for longer periods, mix in some mild activity or stretching between periods ofrest. This will help to prevent stiffness and pain. Get regular exercise. Ask your health care provider what activities are safe for you. Do not lift anything that is heavier than 10 lb (4.5 kg), or the limit that you are told, until your health care provider says that it is safe. Always use proper lifting technique, which includes: ?Bending your knees. ?Keeping the load close to your body. ?Avoiding twisting. Sleep on a firm mattress in a comfortable position. Try lying on your side with your knees slightlybent. If you lie on your back, put a pillow under your knees. Medicines Treatment may include medicines for pain and inflammation taken by mouth or applied to the skin, prescription pain medicine, or muscle relaxants. Take jqhg-sbm-mshotqj and prescription medicines onlyas told by your health care provider. Ask your health care provider if the medicine prescribed to you: ?Requires you to avoid driving or using machinery. ?Can cause constipation. You may need to take these actions to prevent or treat constipation: ?Drink enough fluid to keep your urine pale yellow. ?Take jqpz-xju-bqudfvi or prescription medicines. ?Eat foods that are high in fiber, such as beans, whole grains, and fresh fruits and vegetables. ?Limit foods that are high in fat and processed sugars, such as fried or sweet foods. General instructions Do not use any products that contain nicotine or tobacco, such as cigarettes, e- cigarettes, and chewing tobacco. If you need help quitting, ask your health care provider. Keep all follow-up visits as told by your health care provider. This is important. Contact a health care provider if: You have pain that is not relieved with rest or medicine. Your pain gets worse, or you have new pain. You have a high fever. You have rapid weight loss. You have trouble doing your normal activities. Get help right away if: You have weakness or numbness in one or both of your legs or feet. You have trouble controlling your bladder or your bowels. You have severe back pain and have any of the following: ?Nausea or vomiting. ?Pain in your abdomen. ?Shortness of breath or you faint. Summary Chronic back pain is back pain that lasts longer than 3 months. When a flare-up begins, apply ice to the painful area for the first 24 48 hours. Apply a moist heat pad or use a heating pad on the painful area as directed by your health care provider. When you are resting for longer periods, mix in some mild activity or stretching between periods ofrest. This will help to prevent stiffness and pain. This information is not intended to replace advice given to you by your health care provider. Make sure you discuss any questions you have with your health care provider. Document Revised: 04/20/2020 Document Reviewed: 04/20/2020 [employer] Patient Education 2022 [email or web address] 03/20/2023 13:38:51 Acute Pain, Adult Acute Pain, Adult Acute pain is a type of sudden pain that may last for just a few days or for as long as six months.It is often related to an illness, injury, or medical procedure. Acute pain may be mild, moderate, or severe. Pain can make it hard for you to do your normal, daily activities. It can cause anxiety and lead toother problems if it is left untreated. Treatment depends on the cause and severity of your pain. Acute pain usually goes away once your injury has healed or you are no longer ill. Follow these instructions at home: Medicines Take jibt-xbc-tsblqub and prescription medicines only as told by your health care provider. Take the lowest dose of medicine for the shortest amount of time needed to relieve the pain. If you are taking prescription pain medicine: ?Do not stop taking the medicine suddenly. Talk to your health care provider about how and when to discontinue prescription medicine. ?Do not take more pills than told by your health care provider even if your pain is severe. ?Do not take other xmir-okj-ngsrnpu pain medicines in addition to prescription pain medicine unlesstold by your health care provider. ?Ask your health care provider if the medicine requires you to avoid driving or using heavy machinery. ?Ask your health care provider if the medicine can cause constipation. You may need to take these actions to prevent or treat constipation: ?Drink enough fluid to keep your urine pale yellow. ?Eat foods that are high in fiber, such as beans, whole grains, and fresh fruits and vegetables. ?Take pirq-cqu-otdahfs or prescription medicines. ?Limit foods that are high in fat and processed sugars, such as fried or sweet foods. Managing pain, stiffness, and swelling If directed, put ice on the affected area. To do this: Put ice in a plastic bag. Place a towel between your skin and the bag. Leave the ice on for 20 minutes, 2 3 times a day. If directed, apply heat to the affected area as often as told by your health care provider. Use theheat source that your health care provider recommends, such as a moist heat pack or a heating pad. Place a towel between your skin and the heat source. Leave the heat on for 20 30 minutes. Remove the heat if your skin turns bright red. This is especially important if you are unable to feel pain, heat, or cold. You may have a greater risk of getting burned. Activity Rest as told by your health care provider. Return to your normal activities as told by your health care provider. Ask your health care provider what activities are safe for you. General instructions Check your pain level as told by your health care provider. Ask your health care provider if other strategies such as distraction, relaxation, or physical therapies can help your pain. Keep all follow-up visits as told by your health care provider. This is important. Contact a health care provider if: Your pain is not controlled by medicine. Your pain does not improve or gets worse. You have side effects from pain medicines, such as vomiting or confusion. Get help right away if you: Have severe pain. Have trouble breathing. Lose consciousness. Have chest pain or pressure that lasts for more than a few minutes, or if you have other symptoms along with chest pain, including if you: ?Have pain or discomfort in one or both arms, your back, neck, jaw, or stomach. ?Have shortness of breath. ?Break out in a cold sweat. ?Feel nauseous. ?Become light-headed. These symptoms may represent a serious problem that is an emergency. Do not wait to see if the symptoms will go away. Get medical help right away. Call your local emergency services (911 in the [place] Do not drive yourself to the hospital. Summary Acute pain may be mild, moderate, or severe. It usually goes away once your injury has healed or you are no longer ill. Take yvxb-hqv-wdvhttt and prescription medicines only as told by your health care provider. Ask your health care provider if the medicine prescribed to you can cause constipation. Contact a health care provider if your pain is not controlled by medicine. This information is not intended to replace advice given to you by your health care provider. Make sure you discuss any questions you have with your health care provider. Document Revised: 07/26/2022 Document Reviewed: 07/27/2019 [employer] Patient Education 2022 [email or web address] 03/20/2023 13:38:51 Radicular Pain Radicular Pain Radicular pain is a type of pain that spreads from your back or neck along a spinal nerve. Spinal nerves are nerves that leave the spinal cord and go to the muscles. Radicular pain is sometimes called radiculopathy, radiculitis, or a pinched nerve. When you have this type of pain, you may also haveweakness, numbness, or tingling in the area of your body that is supplied by the nerve. The pain may feel sharp and burning. Depending on which spinal nerve is affected, the pain may occur in the: Neck area (cervical radicular pain). You may also feel pain, numbness, weakness, or tingling in thearms. Mid-spine area (thoracic radicular pain). You would feel this pain in the back and chest. This typeis rare. Lower back area (lumbar radicular pain). You would feel this pain as low back pain. You may feel pain, numbness, weakness, or tingling in the buttocks or legs. Sciatica is a type of lumbar radicular pain that shoots down the back of the leg. Radicular pain occurs when one of the spinal nerves becomes irritated or squeezed (compressed). It is often caused by something pushing on a spinal nerve, such as one of the bones of the spine (vertebrae) or one of the round cushions between vertebrae (intervertebral disks). This can result from: An injury. Wear and tear or aging of a disk. The growth of a bone spur that pushes on the nerve. Radicular pain often goes away when you follow instructions from your health care provider for relieving pain at home. How is this treated? Treatment may depend on the cause of the condition and may include: Working with a physical therapist. Taking pain medicine. Applying heat or ice or both to the affected areas. Doing stretches to improve flexibility. Having surgery. This may be needed if other treatments do not help. Different types of surgery may be done depending on the cause of this condition. Follow these instructions at home: Managing pain If directed, put ice on the affected area. To do this: ?Put ice in a plastic bag. ?Place a towel between your skin and the bag. ?Leave the ice on for 20 minutes, 2 3 times a day. ?Remove the ice if your skin turns bright red. This is very important. If you cannot feel pain, heat, or cold, you have a greater risk of damage to the area. If directed, apply heat to the affected area as often as told by your health care provider. Use theheat source that your health care provider recommends, such as a moist heat pack or a heating pad. ?Place a towel between your skin and the heat source. ?Leave the heat on for 20 30 minutes. ?Remove the heat if your skin turns bright red. This is especially important if you are unable to feel pain, heat, or cold. You have a greater risk of getting burned. Activity Do not sit or rest in bed for long periods of time. Try to stay as active as possible. Ask your health care provider what type of exercise or activity is best for you. Avoid activities that make your pain worse, such as bending and lifting. You may have to avoid lifting. Ask your health care provider how much you can safely lift. Practice using proper technique when lifting items. Proper lifting technique involves bending your knees and rising up. Do strength and hopqu-gs-vbjzmd exercises only as told by your health care provider or physical therapist. General instructions Take kocx-hth-encwmhs and prescription medicines only as told by your health care provider. Pay attention to any changes in your symptoms. Keep all follow-up visits. This is important. Contact a health care provider if: Your pain and other symptoms get worse. Your pain medicine is not helping. Your pain has not improved after a few weeks of home care. You have a fever. Get help right away if: You have severe pain, weakness, or numbness. You have difficulty with bladder or bowel control. Summary Radicular pain is a type of pain that spreads from your back or neck along a spinal nerve. When you have radicular pain, you may also have weakness, numbness, or tingling in the area of yourbody that is supplied by the nerve. The pain may feel sharp or burning. Radicular pain may be treated with ice, heat, medicines, or physical therapy. This information is not intended to replace advice given to you by your health care provider. Make sure you discuss any questions you have with your health care provider. Document Revised: 09/14/2021 Document Reviewed: 09/14/2021 [employer] Patient Education 2022 [email or web address] Follow Up Care 03/20/2023 12:42:50 With:ANTONIO HUSAIN Address: [address] [place] [phone] Business (1) When:03/23/2023 13:25:02 Comments:Follow-up with your primary care provider in 3 to 5 days. If symptoms worsen, do not improve, or new symptoms arise please report back to emergency department for further evaluation. [facility]12-27-2023 Evaluation + Plan noteExtracted from: Title:ED Note Author:Ladnon Tidwell PA-C te:03/20/23 Lumbago with sciatica, right side (M54.41: Lumbago with sciatica, right side) Orders: ketorolac, 60 mg = 2 mL, Injection, IntraMuscular, Once, Stop date 03/20/23 13:21:00 EST, STAT, Start date 03/20/23 13:21:00 EST, 03/20/23 13:21:00 EST morphine, 4 mg = 1 mL, Injection, IntraMuscular, Once, Stop date 03/20/23 13:21:00 EST, STAT, Start date 03/20/23 13:21:00 EST, 03/20/23 13:21:00 EST [facility]12-18-2023 Evaluation + Plan noteExtracted from: Title:ED Note Author:Jorge Mcintosh DO Date: Gastroenteritis (K52.9: Denisa nfective gastroenteritis and colitis, unspecified) Viral syndrome (B34.9: Viral infection, unspecified) Orders: acetaminophen, 975 mg = 3 tab(s), Tab, Oral, Once, Stop date 03/11/23 10:36:00 EST, STAT, Start date 03/11/23 10:36:00 EST, 03/11/23 10:36:00 EST ketorolac, 30 mg = 1 mL, Injection, IV, Once, Stop date 03/11/23 10:36:00 EST, STAT, Start date 03/11/23 10:36:00 EST, 03/11/23 10:36:00 EST ondansetron, 4 mg = 2 mL, Injection, IV Push, Once, Stop date 03/11/23 9:13:00 EST, STAT, Start date 03/11/23 9:13:00 EST, 03/11/23 9:13:00 EST ondansetron, 4 mg = 1 tab(s), Oral, q6hr, PRN Nausea, Take one tab by mouth every six hours as needed for nausea, # 10 tab(s), Refills(s) 0 pantoprazole, 40 mg = 10 mL, Injection, IV Push, Once, Stop date 03/11/23 9:13:00 EST, STAT, Start date 03/11/23 9:13:00 EST, 03/11/23 9:13:00 EST Sodium Chloride 0.9% intravenous solution, 1,000 mL, Soln-IV, IV, Once, Stop date 03/11/23 9:13:00 EST, STAT, Start date 03/11/23 9:13:00 EST, Infuse over 61, minute(s) Automated Diff Basic Metabolic Panel CBC w/ Auto Diff eGFR Extra Blue Tube Extra SST Tube Hepatic Function Panel Lipase Level Rapid COVID Antigen ([facility] [place]) [facility]12-18-2023 Hospital Discharge instructions Follow Up Care 03/11/2023 08:57:16 With:ANTONIO HUSAIN Address: [address] [place] [phone] Business (1) When:Within 3 Day(s) [facility]11-21-2023 Hospital Discharge instructions Patient Education 02/12/2023 21:11:24 Chronic Back Pain Chronic Back Pain When back pain lasts longer than 3 months, it is called chronic back pain. The cause of your back pain may not be known. Some common causes include: Wear and tear (degenerative disease) of the bones, ligaments, or disks in your back. Inflammation and stiffness in your back (arthritis). People who have chronic back pain often go through certain periods in which the pain is more intense (flare-ups). Many people can learn to manage the pain with home care. Follow these instructions at home: Pay attention to any changes in your symptoms. Take these actions to help with your pain: Managing pain and stiffness If directed, apply ice to the painful area. Your health care provider may recommend applying ice during the first 24 48 hours after a flare-up begins. To do this: ?Put ice in a plastic bag. ?Place a towel between your skin and the bag. ?Leave the ice on for 20 minutes, 2 3 times per day. If directed, apply heat to the affected area as often as told by your health care provider. Use theheat source that your health care provider recommends, such as a moist heat pack or a heating pad. ?Place a towel between your skin and the heat source. ?Leave the heat on for 20 30 minutes. ?Remove the heat if your skin turns bright red. This is especially important if you are unable to feel pain, heat, or cold. You may have a greater risk of getting burned. Try soaking in a warm tub. Activity Avoid bending and other activities that make the problem worse. Maintain a proper position when standing or sitting: ?When standing, keep your upper back and neck straight, with your shoulders pulled back. Avoid slouching. ?When sitting, keep your back straight and relax your shoulders. Do not round your shoulders or pull them backward. Do not sit or intelligence consultant one place for long periods of time. Take brief periods of rest throughout the day. This will reduce your pain. Resting in a lying or standing position is usually better than sitting to rest. When you are resting for longer periods, mix in some mild activity or stretching between periods ofrest. This will help to prevent stiffness and pain. Get regular exercise. Ask your health care provider what activities are safe for you. Do not lift anything that is heavier than 10 lb (4.5 kg), or the limit that you are told, until your health care provider says that it is safe. Always use proper lifting technique, which includes: ?Bending your knees. ?Keeping the load close to your body. ?Avoiding twisting. Sleep on a firm mattress in a comfortable position. Try lying on your side with your knees slightlybent. If you lie on your back, put a pillow under your knees. Medicines Treatment may include medicines for pain and inflammation taken by mouth or applied to the skin, prescription pain medicine, or muscle relaxants. Take buml-ofo-nrbbziv and prescription medicines onlyas told by your health care provider. Ask your health care provider if the medicine prescribed to you: ?Requires you to avoid driving or using machinery. ?Can cause constipation. You may need to take these actions to prevent or treat constipation: ?Drink enough fluid to keep your urine pale yellow. ?Take qcqq-qmj-bqtmhpz or prescription medicines. ?Eat foods that are high in fiber, such as beans, whole grains, and fresh fruits and vegetables. ?Limit foods that are high in fat and processed sugars, such as fried or sweet foods. General instructions Do not use any products that contain nicotine or tobacco, such as cigarettes, e- cigarettes, and chewing tobacco. If you need help quitting, ask your health care provider. Keep all follow-up visits as told by your health care provider. This is important. Contact a health care provider if: You have pain that is not relieved with rest or medicine. Your pain gets worse, or you have new pain. You have a high fever. You have rapid weight loss. You have trouble doing your normal activities. Get help right away if: You have weakness or numbness in one or both of your legs or feet. You have trouble controlling your bladder or your bowels. You have severe back pain and have any of the following: ?Nausea or vomiting. ?Pain in your abdomen. ?Shortness of breath or you faint. Summary Chronic back pain is back pain that lasts longer than 3 months. When a flare-up begins, apply ice to the painful area for the first 24 48 hours. Apply a moist heat pad or use a heating pad on the painful area as directed by your health care provider. When you are resting for longer periods, mix in some mild activity or stretching between periods ofrest. This will help to prevent stiffness and pain. This information is not intended to replace advice given to you by your health care provider. Make sure you discuss any questions you have with your health care provider. Document Revised: 04/20/2020 Document Reviewed: 04/20/2020 [employer] Patient Education 2022 [email or web address]. Follow Up Care 02/12/2023 19:28:18 With:DALTON JAMES Address: [address] [address] Business (1) When:02/15/2023 20:41:14 [facility]11-21-2023 Evaluation + Plan noteExtracted from: Title:ED Note Author:Pedro Pablo Fletcher DO Date :02/12/23 Acute exacerbation of chroni c low back pain (M54.50: Low back pain, unspecified) Other chronic pain (G89.29: Other chronic pain) Orders: morphine, 2 mg = 1 mL, Injection, IntraMuscular, Once, Stop date 02/12/23 20:40:00 EST, STAT, Start date 02/12/23 20:40:00 EST, 02/12/23 20:40:00 EST orphenadrine, 60 mg = 2 mL, Injection, IntraMuscular, Once, Stop date 02/12/23 20:39:00 EST, STAT, Start date 02/12/23 20:39:00 EST, 02/12/23 20:39:00 EST [facility]11-16-2023 Hospital Discharge instructions Patient Education 02/07/2023 20:30:36 Chronic Back Pain, Sltr-yy-Hmlm Chronic Back Pain When back pain lasts longer than 3 months, it is called chronic back pain. Pain may get worse at certain times (flare-ups). There are things you can do at home to manage your pain. Follow these instructions at home: Pay attention to any changes in your symptoms. Take these actions to help with your pain: Managing pain and stiffness If told, put ice on the painful area. Your doctor may tell you to use ice for 24 48 hours after theflare-up starts. To do this: ?Put ice in a plastic bag. ?Place a towel between your skin and the bag. ?Leave the ice on for 20 minutes, 2 3 times a day. If told, put heat on the painful area. Do this as often as told by your doctor. Use the heat sourcethat your doctor recommends, such as a moist heat pack or a heating pad. ?Place a towel between your skin and the heat source. ?Leave the heat on for 20 30 minutes. ?Take off the heat if your skin turns bright red. This is especially important if you are unable tofeel pain, heat, or cold. You may have a greater risk of getting burned. Soak in a warm bath. This can help relieve pain. Activity Avoid bending and other activities that make pain worse. When standing: ?Keep your upper back and neck straight. ?Keep your shoulders pulled back. ?Avoid slouching. When sitting: ?Keep your back straight. ?Relax your shoulders. Do not round your shoulders or pull them backward. Do not sit or intelligence consultant one place for long periods of time. Take short rest breaks during the day. Lying down or standing is usually better than sitting. Resting can help relieve pain. When sitting or lying down for a long time, do some mild activity or stretching. This will help to prevent stiffness and pain. Get regular exercise. Ask your doctor what activities are safe for you. Do not lift anything that is heavier than 10 lb (4.5 kg) or the limit that you are told, until yourdoctor says that it is safe. To prevent injury when you lift things: ?Bend your knees. ?Keep the weight close to your body. ?Avoid twisting. Sleep on a firm mattress. Try lying on your side with your knees slightly bent. If you lie on your back, put a pillow under your knees. Medicines Treatment may include medicines for pain and swelling taken by mouth or put on the skin, prescription pain medicine, or muscle relaxants. Take sypp-qbc-equepzh and prescription medicines only as told by your doctor. Ask your doctor if the medicine prescribed to you: ?Requires you to avoid driving or using machinery. ?Can cause trouble pooping (constipation). You may need to take these actions to prevent or treat trouble pooping: ?Drink enough fluid to keep your pee (urine) pale yellow. ?Take rybq-vox-kgxlqam or prescription medicines. ?Eat foods that are high in fiber. These include beans, whole grains, and fresh fruits and vegetables. ?Limit foods that are high in fat and sugars. These include fried or sweet foods. General instructions Do not use any products that contain nicotine or tobacco, such as cigarettes, e- cigarettes, and chewing tobacco. If you need help quitting, ask your doctor. Keep all follow-up visits as told by your doctor. This is important. Contact a doctor if: Your pain does not get better with rest or medicine. Your pain gets worse, or you have new pain. You have a high fever. You lose weight very quickly. You have trouble doing your normal activities. Get help right away if: One or both of your legs or feet feel weak. One or both of your legs or feet lose feeling (have numbness). You have trouble controlling when you poop (have a bowel movement) or pee (urinate). You have bad back pain and: ?You feel like you may vomit (nauseous), or you vomit. ?You have pain in your belly (abdomen). ?You have shortness of breath. ?You faint. Summary When back pain lasts longer than 3 months, it is called chronic back pain. Pain may get worse at certain times (flare-ups). Use ice and heat as told by your doctor. Your doctor may tell you to use ice after flare-ups. This information is not intended to replace advice given to you by your health care provider. Make sure you discuss any questions you have with your health care provider. Document Revised: 04/20/2020 Document Reviewed: 04/20/2020 [employer] Patient Education 2022 [email or web address]. 02/07/2023 20:30:36 Back Exercises, Azbd-ye-Lmuo Back Exercises These exercises help to make your trunk and back strong. They also help to keep the lower back flexible. Doing these exercises can help to prevent or lessen pain in your lower back. If you have back pain, try to do these exercises 2 3 times each day or as told by your doctor. As you get better, do the exercises once each day. Repeat the exercises more often as told by your doctor. To stop back pain from coming back, do the exercises once each day, or as told by your doctor. Do exercises exactly as told by your doctor. Stop right away if you feel sudden pain or your pain gets worse. Exercises Single knee to chest Do these steps 3 5 times in a row for each le.Lie on your back on a firm bed or the floor with your legs stretched out. 2.Bring one knee to your chest. 3.Grab your knee or thigh with both hands and hold it in place. 4.Pull on your knee until you feel a gentle stretch in your lower back or butt. 5.Keep doing the stretch for 10 30 seconds. 6.Slowly let go of your leg and straighten it. Pelvic tilt Do these steps 5 10 times in a row: 1.Lie on your back on a firm bed or the floor with your legs stretched out. 2.Bend your knees so they point up to the ceiling. Your feet should be flat on the floor. 3.Tighten your lower belly (abdomen) muscles to press your lower back against the floor. This will make your tailbone point up to the ceiling instead of pointing down to your feet or the floor. 4.Stay in this position for 5 10 seconds while you gently tighten your muscles and breathe evenly. Cat cow Do these steps until your lower back bends more easily: 1.Get on your hands and knees on a firm bed or the floor. Keep your hands under your shoulders, andkeep your knees under your hips. You may put padding under your knees. 2.Let your head hang down toward your chest. Tighten (contract) the muscles in your belly. Point your tailbone toward the floor so your lower back becomes rounded like the back of a cat. 3.Stay in this position for 5 seconds. 4.Slowly lift your head. Let the muscles of your belly relax. Point your tailbone up toward the ceiling so your back forms a sagging arch like the back of a cow. 5.Stay in this position for 5 seconds. Press-ups Do these steps 5 10 times in a row: 1.Lie on your belly (face-down) on a firm bed or the floor. 2.Place your hands near your head, about shoulder-width apart. 3.While you keep your back relaxed and keep your hips on the floor, slowly straighten your arms to raise the top half of your body and lift your shoulders. Do not use your back muscles. You may change where you place your hands to make yourself more comfortable. 4.Stay in this position for 5 seconds. Keep your back relaxed. 5.Slowly return to lying flat on the floor. Bridges Do these steps 10 times in a row: 1.Lie on your back on a firm bed or the floor. 2.Bend your knees so they point up to the ceiling. Your feet should be flat on the floor. Your armsshould be flat at your sides, next to your body. 3.Tighten your butt muscles and lift your butt off the floor until your waist is almost as high as your knees. If you do not feel the muscles working in your butt and the back of your thighs, slide your feet 1 2 inches (2.5 5 cm) farther away from your butt. 4.Stay in this position for 3 5 seconds. 5.Slowly lower your butt to the floor, and let your butt muscles relax. If this exercise is too easy, try doing it with your arms crossed over your chest. Belly crunches Do these steps 5 10 times in a row: 1.Lie on your back on a firm bed or the floor with your legs stretched out. 2.Bend your knees so they point up to the ceiling. Your feet should be flat on the floor. 3.Cross your arms over your chest. 4.Tip your chin a little bit toward your chest, but do not bend your neck. 5.Tighten your belly muscles and slowly raise your chest just enough to lift your shoulder blades atiny bit off the floor. Avoid raising your body higher than that because it can put too much stresson your lower back. 6.Slowly lower your chest and your head to the floor. Back lifts Do these steps 5 10 times in a row: 1.Lie on your belly (face-down) with your arms at your sides, and rest your forehead on the floor. 2.Tighten the muscles in your legs and your butt. 3.Slowly lift your chest off the floor while you keep your hips on the floor. Keep the back of yourhead in line with the curve in your back. Look at the floor while you do this. 4.Stay in this position for 3 5 seconds. 5.Slowly lower your chest and your face to the floor. Contact a doctor if: Your back pain gets a lot worse when you do an exercise. Your back pain does not get better within 2 hours after you exercise. If you have any of these problems, stop doing the exercises. Do not do them again unless your doctor says it is okay. Get help right away if: You have sudden, very bad back pain. If this happens, stop doing the exercises. Do not do them again unless your doctor says it is okay. This information is not intended to replace advice given to you by your health care provider. Make sure you discuss any questions you have with your health care provider. Document Revised: 05/24/2021 Document Reviewed: 05/24/2021 [employer] Patient Education 2022 [email or web address]. Follow Up Care 02/07/2023 19:11:26 With:Declan COLVIN Address: [address] [place] [id number] [facility] (1) When:02/10/2023 19:59:42 Comments:Take the steroids once daily until you have completed the course. You can use the anti-inflammatory, muscle relaxers as prescribed as needed for pain. Please follow-up with your primary care doctor in addition to spine doctor for further evaluation and management. With:XXXX NONE Address: [place] When:Within 3 Day(s) [facility]11-07-2023 Hospital Discharge instructions Patient Education 01/29/2023 12:30:56 Chronic Pain, Adult Chronic Pain, Adult Chronic pain is a type of pain that lasts or keeps coming back for at least 3 6 months. You may have headaches, pain in the abdomen, or pain in other areas of the body. Chronic pain may be related gonzalez illness, such as fibromyalgia or complex regional pain syndrome. Chronic pain may also be related to an injury or a health condition. Sometimes, the cause of chronic pain is not known. Chronic pain can make it hard for you to do daily activities. If not treated, chronic pain can leadto anxiety and depression. Treatment depends on the cause and severity of your pain. You may need to work with a pain specialist to come up with a treatment plan. The plan may include medicine, counseling, and physical therapy. Many people benefit from a combination of two or more types of treatment to control their pain. Follow these instructions at home: Medicines Take rlhs-njt-dbewnbb and prescription medicines only as told by your health care provider. Ask your health care provider if the medicine prescribed to you: ?Requires you to avoid driving or using machinery. ?Can cause constipation. You may need to take these actions to prevent or treat constipation: ?Drink enough fluid to keep your urine pale yellow. ?Take qkma-ttz-qeeybpv or prescription medicines. ?Eat foods that are high in fiber, such as beans, whole grains, and fresh fruits and vegetables. ?Limit foods that are high in fat and processed sugars, such as fried or sweet foods. Treatment plan Follow your treatment plan as told by your health care provider. This may include: Gentle, regular exercise. Eating a healthy diet that includes foods such as vegetables, fruits, fish, and lean meats. Cognitive or behavioral therapy that changes the way you think or act in response to the pain. Thismay help improve how you feel. Working with a physical therapist. Meditation, yoga, acupuncture, or massage therapy. Aroma, color, light, or sound therapy. Local electrical stimulation. The electrical pulses help to relieve pain by temporarily stopping the nerve impulses that cause you to feel pain. Injections. These deliver numbing or pain-relieving medicines into the spine or the area of pain. Lifestyle Ask your health care provider whether you should keep a pain diary. Your health care provider will tell you what information to write in the diary. This may include when you have pain, what the pain feels like, and how medicines and other behaviors or treatments help to reduce the pain. Consider talking with a mental health care provider about how to manage chronic pain. Consider joining a chronic pain support group. Try to control or lower your stress levels. Talk with your health care provider about ways to do this. General instructions Learn as much as you can about how to manage your chronic pain. Ask your health care provider if anintensive pain rehabilitation program or a chronic pain specialist would be helpful. Check your pain level as told by your health care provider. Ask your health care provider if you should use a pain scale. It is up to you to get the results of any tests that were done. Ask your health care provider, or the department that is doing the tests, when your results will be ready. Keep all follow-up visits as told by your health care provider. This is important. Contact a health care provider if: Your pain gets worse, or you have new pain. You have trouble sleeping. You have trouble doing your normal activities. Your pain is not controlled with treatment. You have side effects from pain medicine. You feel weak. You notice any other changes that show that your condition is getting worse. Get help right away if: You lose feeling or have numbness in your body. You lose control of bowel or bladder function. Your pain suddenly gets much worse. You develop shaking or chills. You develop confusion. You develop chest pain. You have trouble breathing or shortness of breath. You pass out. You have thoughts about hurting yourself or others. If you ever feel like you may hurt yourself or others, or have thoughts about taking your own life,get help right away. Go to your nearest emergency department or: Call your local emergency services (244 in the [place] Call a suicide crisis helpline, such as the National Suicide Prevention Lifeline at or 394 in the [place] This is open 24 hours a day in the [place] Text the Crisis Text Line at 651988 (in the [place] Summary Chronic pain is a type of pain that lasts or keeps coming back for at least 3 6 months. Chronic pain may be related to an illness, injury, or other health condition. Sometimes, the cause of chronic pain is not known. Treatment depends on the cause and severity of your pain. Many people benefit from a combination of two or more types of treatment to control their pain. Follow your treatment plan as told by your health care provider. This information is not intended to replace advice given to you by your health care provider. Make sure you discuss any questions you have with your health care provider. Document Revised: 10/04/2021 Document Reviewed: 11/26/2019 [employer] Patient Education 2022 [email or web address]. Follow Up Care 01/29/2023 11:30:42 With:Luís Mar Address: [facility] [address] [phone]- Business (1) When:02/01/2023 12:09:50 [facility]10-31-2023 Hospital Discharge instructions Patient Education 01/22/2023 19:37:08 Chronic Back Pain, Nxmz-id-Qreo Chronic Back Pain When back pain lasts longer than 3 months, it is called chronic back pain. Pain may get worse at certain times (flare-ups). There are things you can do at home to manage your pain. Follow these instructions at home: Pay attention to any changes in your symptoms. Take these actions to help with your pain: Managing pain and stiffness If told, put ice on the painful area. Your doctor may tell you to use ice for 24 48 hours after theflare-up starts. To do this: ?Put ice in a plastic bag. ?Place a towel between your skin and the bag. ?Leave the ice on for 20 minutes, 2 3 times a day. If told, put heat on the painful area. Do this as often as told by your doctor. Use the heat sourcethat your doctor recommends, such as a moist heat pack or a heating pad. ?Place a towel between your skin and the heat source. ?Leave the heat on for 20 30 minutes. ?Take off the heat if your skin turns bright red. This is especially important if you are unable tofeel pain, heat, or cold. You may have a greater risk of getting burned. Soak in a warm bath. This can help relieve pain. Activity Avoid bending and other activities that make pain worse. When standing: ?Keep your upper back and neck straight. ?Keep your shoulders pulled back. ?Avoid slouching. When sitting: ?Keep your back straight. ?Relax your shoulders. Do not round your shoulders or pull them backward. Do not sit or intelligence consultant one place for long periods of time. Take short rest breaks during the day. Lying down or standing is usually better than sitting. Resting can help relieve pain. When sitting or lying down for a long time, do some mild activity or stretching. This will help to prevent stiffness and pain. Get regular exercise. Ask your doctor what activities are safe for you. Do not lift anything that is heavier than 10 lb (4.5 kg) or the limit that you are told, until yourdoctor says that it is safe. To prevent injury when you lift things: ?Bend your knees. ?Keep the weight close to your body. ?Avoid twisting. Sleep on a firm mattress. Try lying on your side with your knees slightly bent. If you lie on your back, put a pillow under your knees. Medicines Treatment may include medicines for pain and swelling taken by mouth or put on the skin, prescription pain medicine, or muscle relaxants. Take arjf-mej-qyhytju and prescription medicines only as told by your doctor. Ask your doctor if the medicine prescribed to you: ?Requires you to avoid driving or using machinery. ?Can cause trouble pooping (constipation). You may need to take these actions to prevent or treat trouble pooping: ?Drink enough fluid to keep your pee (urine) pale yellow. ?Take nqor-pfn-fzcxhlr or prescription medicines. ?Eat foods that are high in fiber. These include beans, whole grains, and fresh fruits and vegetables. ?Limit foods that are high in fat and sugars. These include fried or sweet foods. General instructions Do not use any products that contain nicotine or tobacco, such as cigarettes, e- cigarettes, and chewing tobacco. If you need help quitting, ask your doctor. Keep all follow-up visits as told by your doctor. This is important. Contact a doctor if: Your pain does not get better with rest or medicine. Your pain gets worse, or you have new pain. You have a high fever. You lose weight very quickly. You have trouble doing your normal activities. Get help right away if: One or both of your legs or feet feel weak. One or both of your legs or feet lose feeling (have numbness). You have trouble controlling when you poop (have a bowel movement) or pee (urinate). You have bad back pain and: ?You feel like you may vomit (nauseous), or you vomit. ?You have pain in your belly (abdomen). ?You have shortness of breath. ?You faint. Summary When back pain lasts longer than 3 months, it is called chronic back pain. Pain may get worse at certain times (flare-ups). Use ice and heat as told by your doctor. Your doctor may tell you to use ice after flare-ups. This information is not intended to replace advice given to you by your health care provider. Make sure you discuss any questions you have with your health care provider. Document Revised: 04/20/2020 Document Reviewed: 04/20/2020 [employer] Patient Education 2022 [email or web address]. Follow Up Care 01/22/2023 18:45:34 With:Peña Salazar Address: [address] [place] [id number] [phone] Business (1) When:01/25/2023 19:09:36 Comments:Follow-up with your primary care provider in 3 to 5 days. If symptoms worsen, do not improve, or new symptoms arise please report back to emergency department for further evaluation. [facility]10-31-2023 Evaluation + Plan noteExtracted from: Title:ED Note Author:Landon Tidwell PA-C te:01/22/23 Chronic back pain (M54.9: Do rsalgia, unspecified) Other chronic pain (G89.29: Other chronic pain) Orders: ketorolac, 30 mg = 1 mL, Injection, IntraMuscular, Once, Stop date 01/22/23 19:08:00 EDT, STAT, Start date 01/22/23 19:08:00 EDT, 01/22/23 19:08:00 EDT morphine, 4 mg = 2 mL, Injection, IntraMuscular, Once, Stop date 01/22/23 19:08:00 EDT, STAT, Start date 01/22/23 19:08:00 EDT, 01/22/23 19:08:00 EDT [facility]10-31-2023 History of Present illness Narrative* Jori Cam MD PhD - 01/22/2023 1:30 PM EDT It was a pleasure to see Ms. Tracy at the [facility] at [facility]. Patient is a 47 year old who presents to us with complaints of back pain and LLE radicular issues. She has had issues for a long time but worsened in May of this year. Reportedly nothing helps withthe pain. Pain is worse in the morning when she wakes up. Denies any new bowel or bladder issues. ROS is otherwise negative. A recent EMG/nerve conduction study was interpreted as showing mild bilateral S1 radiculopathy, worse on the left. She has tried medications without any relief. Injections and PT have provided no relief either. Aggravating factors: movement Relieving factors: NONE Associated symptoms : No history of bowel bladder symptoms. No history of depression, DVT/Blood Clots, chronic steroid use, Osteoporosis, narcotic dependence, cancer, or recent infections. PRIOR SPINE SURGERY: No The patient denies any history of trauma, fever, low back pain, headache, vomiting, excessive sleepiness, diplopia, photophobia, visual or hearing deterioration. 14 point review of systems as above, otherwise negative Denies use of Aspirin, Coumadin, or Plavix Part of this patient s history is from personal review of the patient s previous charts. I also personally reviewed the past imaging and interpreted it myself. Physical Exam: General: Well developed, awake/alert/oriented x3, no distress, alert and cooperative Skin: Warm and dry, no lesions, no rashes ENMT: Mucous membranes moist, no apparent injury, no lesions seen Head/Neck: Neck Supple, no apparent injury Respiratory/Thorax: Normal breath sounds with good chest expansion, thorax symmetric Cardiovascular: No pitting edema, no JVD BUE 4+, BLE pain limited 4/5 Imaging: Imaging was personally reviewed and shows disc degeneration at L4-L5 with no sig central canal stenosis. Does have some foraminal compression on the right. Assessment and Plan: Patient is a 47 year old with back pain and LLE radicular issues with L4-L5 disc degeneration without any significant compression. At this point, we will get standing flexion/extension xrays. We are referring her to my colleague Dr. Elke Adams for consideration of neuromodulation therapy. We have also recommended that the patient continue her work with therapy and pain management. All questions were answered. documented in this [facility] Work Phone: [phone]) 868-294110-24-2023 History of Present illness Narrative* Antonio Husain PA-C - 01/15/2023 1:10 PM EDT Subjective Patient ID: Jerad Tracy is a 47 y.o. female who presents for [facility] (Patient transferring Care form [place], [place], last seen by PCP 3 months ago./Colonoscopy done 04/2022 and bone density done 10/2022 at [facility], mammogram scheduled for 01-17-23 and Pap done over 5 years.) and Weight Loss (Patient would like to discuss weight loss options.). HPI Patient presents to [facility]. Patient has medical history of depression, herniated disc at L4-L5 with radiculopathy causing chronic pain, and GERD currently managed with Percocet, omeprazole,, and Prozac. Acutely, patient has no complaints. Patient does report a history of hep C that has not been assessed or treated. Regarding the low back, patient is scheduled to see neurosurgeon on 22 January 2023. Patient hasbeen dealing with back pain for quite some time and was previously seen in [place] by neurosurgery. Patient reports inability to get surgery that she wants. The pain is quite severe at times and is debilitating. Patient admits to leading a sedentary life secondary to pain. Review of Systems Constitutional: See HPI Eye: No recent visual problem. Respiratory: No shortness of breath, No cough. Cardiovascular: No chest pain. Gastrointestinal: No abdominal pain, No nausea, No vomiting. Genitourinary: No dysuria, No hematuria. Musculoskeletal: See HPI Integumentary: No rash. Neurologic: See HPI All other systems are negative Objective BP 144/90 Pulse 92 Temp 36.4 C (97.5 F) (Temporal) Ht 1.6 m (5' 3 ) Wt 113 kg (248 lb 9.6 oz) SpO2 94% BMI 44.04 kg/m Physical Exam General: Alert and oriented, No acute distress. Eye: Pupils are equal, round and reactive to light, Extraocular movements are intact, Normal conjunctiva. HENT: Normocephalic, Normal hearing, Oral mucosa is moist, No pharyngeal erythema, No sinus tenderness. Neck: Supple, Non-tender, No lymphadenopathy. Respiratory: Lungs are clear to auscultation, Respirations are non-labored, Breath sounds are equal Cardiovascular: Normal rate, Regular rhythm. Gastrointestinal: Non-distended. Musculoskeletal: Normal range of motion, Normal strength, No tenderness, No swelling, No deformity,Normal gait. Integumentary: Warm, Dry, Intact, No pallor, No rash. Neurologic: Alert, Oriented, Normal sensory, Normal motor function, No focal deficits, Cranial Nerves II-XII are grossly intact Psychiatric: Cooperative, Appropriate mood & affect. OARRS: Antonio Husain PA-C on 01/15/2023 1:47 PM I have personally reviewed the OARRS report for Jerad Tracy. I have considered the risks of abuse,dependence, addiction and diversion Is the patient prescribed a combination of a benzodiazepine and opioid? Yes, I feel it is clincially indicated to continue the medication and have discussed with the patient risks/benefits/alternatives. Last Urine Drug Screen / ordered today: Yes No results found for this or any previous visit (from the past 8760 hour(s)). N/A Controlled Substance Agreement: Date of the Last Agreement: Today Reviewed Controlled Substance Agreement including but not limited to the benefits, risks, and alternatives to treatment with a Controlled Substance medication(s). Opioids: What is the patient's goal of therapy? Pain control Is this being achieved with current treatment? Yes I have calculated the patient's Morphine Dose Equivalent (MED): I have considered referral to Pain Management and/or a specialist, and do not feel it is necessary at this time. I feel that it is clinically indicated to continue this current medication regimen after consideration of alternative therapies, and other non-opioid treatment. Opioid Risk Screening: No data recorded Pain Assessment: No data recorded Assessment/Plan Major depression: Continue Prozac Herniated disc with lumbar radiculopathy: Continue with neurosurgery as scheduled. Patient does have a recent MRI. The patient was previously getting Percocet from ERs at the behest of neurosurgery. Patient has not seen a pain management. Patient with be periodically sent to the ER by the neurosurgery and this was verifiable in OARRS. Agreed to continue Percocet treatment here. The patient's OARRS is full of red flags however, the patient readily admits to visiting ER departments for treatment.OARRS reviewed, appropriate, and consitent with provided history. Follow-up in 3 months Hepatitis C: Hep titer and antibody ordered as well as liver ultrasound with hep otology referral. Problem List Items Addressed This Visit None Visit Diagnoses Encounter for screening mammogram for breast cancer - Primary Relevant Orders BI mammo bilateral screening tomosynthesis Recurrent major depressive disorder, in full remission (CMS/HCC) Relevant Medications FLUoxetine (PROzac) 60 mg tablet Herniation of intervertebral disc between L4 and L5 Relevant Medications gabapentin (Neurontin) 300 mg capsule oxyCODONE-acetaminophen (Percocet) 5-325 mg tablet Lumbar radiculopathy Relevant Medications gabapentin (Neurontin) 300 mg capsule oxyCODONE-acetaminophen (Percocet) 5-325 mg tablet Chronic hepatitis C without hepatic coma (CMS/HCC) Relevant Orders Hepatitis C RNA, Quantitative, PCR Hepatitis C Antibody US abdomen limited liver Referral to Hepatology Chronic, continuous use of opioids Relevant Medications naloxone (Narcan) 4 mg/0.1 mL nasal spray Controlled substance agreement signed Relevant Orders Drug Screen, Urine With Reflex to Confirmation Final diagnoses: [Z12.31] Encounter for screening mammogram for breast cancer [F33.42] Recurrent major depressive disorder, in full remission (CMS/HCC) [M51.26] Herniation of intervertebral disc between L4 and L5 [M54.16] Lumbar radiculopathy [B18.2] Chronic hepatitis C without hepatic coma (CMS/HCC) [F11.90] Chronic, continuous use of opioids [Z79.899] Controlled substance agreement signed [facility]: [phone]) 495-825010-23-2023 Hospital Discharge instructions Patient Education 01/14/2023 15:50:08 Chronic Back Pain Chronic Back Pain When back pain lasts longer than 3 months, it is called chronic back pain. The cause of your back pain may not be known. Some common causes include: Wear and tear (degenerative disease) of the bones, ligaments, or disks in your back. Inflammation and stiffness in your back (arthritis). People who have chronic back pain often go through certain periods in which the pain is more intense (flare-ups). Many people can learn to manage the pain with home care. Follow these instructions at home: Pay attention to any changes in your symptoms. Take these actions to help with your pain: Managing pain and stiffness If directed, apply ice to the painful area. Your health care provider may recommend applying ice during the first 24 48 hours after a flare-up begins. To do this: ?Put ice in a plastic bag. ?Place a towel between your skin and the bag. ?Leave the ice on for 20 minutes, 2 3 times per day. If directed, apply heat to the affected area as often as told by your health care provider. Use theheat source that your health care provider recommends, such as a moist heat pack or a heating pad. ?Place a towel between your skin and the heat source. ?Leave the heat on for 20 30 minutes. ?Remove the heat if your skin turns bright red. This is especially important if you are unable to feel pain, heat, or cold. You may have a greater risk of getting burned. Try soaking in a warm tub. Activity Avoid bending and other activities that make the problem worse. Maintain a proper position when standing or sitting: ?When standing, keep your upper back and neck straight, with your shoulders pulled back. Avoid slouching. ?When sitting, keep your back straight and relax your shoulders. Do not round your shoulders or pull them backward. Do not sit or intelligence consultant one place for long periods of time. Take brief periods of rest throughout the day. This will reduce your pain. Resting in a lying or standing position is usually better than sitting to rest. When you are resting for longer periods, mix in some mild activity or stretching between periods ofrest. This will help to prevent stiffness and pain. Get regular exercise. Ask your health care provider what activities are safe for you. Do not lift anything that is heavier than 10 lb (4.5 kg), or the limit that you are told, until your health care provider says that it is safe. Always use proper lifting technique, which includes: ?Bending your knees. ?Keeping the load close to your body. ?Avoiding twisting. Sleep on a firm mattress in a comfortable position. Try lying on your side with your knees slightlybent. If you lie on your back, put a pillow under your knees. Medicines Treatment may include medicines for pain and inflammation taken by mouth or applied to the skin, prescription pain medicine, or muscle relaxants. Take gcms-nmq-gjwndnc and prescription medicines onlyas told by your health care provider. Ask your health care provider if the medicine prescribed to you: ?Requires you to avoid driving or using machinery. ?Can cause constipation. You may need to take these actions to prevent or treat constipation: ?Drink enough fluid to keep your urine pale yellow. ?Take axtz-zbd-busemhp or prescription medicines. ?Eat foods that are high in fiber, such as beans, whole grains, and fresh fruits and vegetables. ?Limit foods that are high in fat and processed sugars, such as fried or sweet foods. General instructions Do not use any products that contain nicotine or tobacco, such as cigarettes, e- cigarettes, and chewing tobacco. If you need help quitting, ask your health care provider. Keep all follow-up visits as told by your health care provider. This is important. Contact a health care provider if: You have pain that is not relieved with rest or medicine. Your pain gets worse, or you have new pain. You have a high fever. You have rapid weight loss. You have trouble doing your normal activities. Get help right away if: You have weakness or numbness in one or both of your legs or feet. You have trouble controlling your bladder or your bowels. You have severe back pain and have any of the following: ?Nausea or vomiting. ?Pain in your abdomen. ?Shortness of breath or you faint. Summary Chronic back pain is back pain that lasts longer than 3 months. When a flare-up begins, apply ice to the painful area for the first 24 48 hours. Apply a moist heat pad or use a heating pad on the painful area as directed by your health care provider. When you are resting for longer periods, mix in some mild activity or stretching between periods ofrest. This will help to prevent stiffness and pain. This information is not intended to replace advice given to you by your health care provider. Make sure you discuss any questions you have with your health care provider. Document Revised: 04/20/2020 Document Reviewed: 04/20/2020 [employer] Patient Education 2022 [email or web address]. 01/14/2023 15:50:08 Back Exercises, Cmhc-dp-Xqem Back Exercises These exercises help to make your trunk and back strong. They also help to keep the lower back flexible. Doing these exercises can help to prevent or lessen pain in your lower back. If you have back pain, try to do these exercises 2 3 times each day or as told by your doctor. As you get better, do the exercises once each day. Repeat the exercises more often as told by your doctor. To stop back pain from coming back, do the exercises once each day, or as told by your doctor. Do exercises exactly as told by your doctor. Stop right away if you feel sudden pain or your pain gets worse. Exercises Single knee to chest Do these steps 3 5 times in a row for each le.Lie on your back on a firm bed or the floor with your legs stretched out. 2.Bring one knee to your chest. 3.Grab your knee or thigh with both hands and hold it in place. 4.Pull on your knee until you feel a gentle stretch in your lower back or butt. 5.Keep doing the stretch for 10 30 seconds. 6.Slowly let go of your leg and straighten it. Pelvic tilt Do these steps 5 10 times in a row: 1.Lie on your back on a firm bed or the floor with your legs stretched out. 2.Bend your knees so they point up to the ceiling. Your feet should be flat on the floor. 3.Tighten your lower belly (abdomen) muscles to press your lower back against the floor. This will make your tailbone point up to the ceiling instead of pointing down to your feet or the floor. 4.Stay in this position for 5 10 seconds while you gently tighten your muscles and breathe evenly. Cat cow Do these steps until your lower back bends more easily: 1.Get on your hands and knees on a firm bed or the floor. Keep your hands under your shoulders, andkeep your knees under your hips. You may put padding under your knees. 2.Let your head hang down toward your chest. Tighten (contract) the muscles in your belly. Point your tailbone toward the floor so your lower back becomes rounded like the back of a cat. 3.Stay in this position for 5 seconds. 4.Slowly lift your head. Let the muscles of your belly relax. Point your tailbone up toward the ceiling so your back forms a sagging arch like the back of a cow. 5.Stay in this position for 5 seconds. Press-ups Do these steps 5 10 times in a row: 1.Lie on your belly (face-down) on a firm bed or the floor. 2.Place your hands near your head, about shoulder-width apart. 3.While you keep your back relaxed and keep your hips on the floor, slowly straighten your arms to raise the top half of your body and lift your shoulders. Do not use your back muscles. You may change where you place your hands to make yourself more comfortable. 4.Stay in this position for 5 seconds. Keep your back relaxed. 5.Slowly return to lying flat on the floor. Bridges Do these steps 10 times in a row: 1.Lie on your back on a firm bed or the floor. 2.Bend your knees so they point up to the ceiling. Your feet should be flat on the floor. Your armsshould be flat at your sides, next to your body. 3.Tighten your butt muscles and lift your butt off the floor until your waist is almost as high as your knees. If you do not feel the muscles working in your butt and the back of your thighs, slide your feet 1 2 inches (2.5 5 cm) farther away from your butt. 4.Stay in this position for 3 5 seconds. 5.Slowly lower your butt to the floor, and let your butt muscles relax. If this exercise is too easy, try doing it with your arms crossed over your chest. Belly crunches Do these steps 5 10 times in a row: 1.Lie on your back on a firm bed or the floor with your legs stretched out. 2.Bend your knees so they point up to the ceiling. Your feet should be flat on the floor. 3.Cross your arms over your chest. 4.Tip your chin a little bit toward your chest, but do not bend your neck. 5.Tighten your belly muscles and slowly raise your chest just enough to lift your shoulder blades atiny bit off the floor. Avoid raising your body higher than that because it can put too much stresson your lower back. 6.Slowly lower your chest and your head to the floor. Back lifts Do these steps 5 10 times in a row: 1.Lie on your belly (face-down) with your arms at your sides, and rest your forehead on the floor. 2.Tighten the muscles in your legs and your butt. 3.Slowly lift your chest off the floor while you keep your hips on the floor. Keep the back of yourhead in line with the curve in your back. Look at the floor while you do this. 4.Stay in this position for 3 5 seconds. 5.Slowly lower your chest and your face to the floor. Contact a doctor if: Your back pain gets a lot worse when you do an exercise. Your back pain does not get better within 2 hours after you exercise. If you have any of these problems, stop doing the exercises. Do not do them again unless your doctor says it is okay. Get help right away if: You have sudden, very bad back pain. If this happens, stop doing the exercises. Do not do them again unless your doctor says it is okay. This information is not intended to replace advice given to you by your health care provider. Make sure you discuss any questions you have with your health care provider. Document Revised: 05/24/2021 Document Reviewed: 05/24/2021 [employer] Patient Education 2022 [email or web address]. Follow Up Care 01/14/2023 14:32:06 With:Domenic Sher Address: [address] [place] [address] [place] [address] Business (1) When:01/17/2023 15:23:38 [facility]10-23-2023 Evaluation + Plan noteExtracted from: Title:ED Note Author:Eden Salomon ate:01/14/23 Chronic back pain (M54.9: Do rsalgia, unspecified) [facility]10-21-2023 Hospital Discharge instructions Patient Education 01/12/2023 21:42:49 Acute Back Pain, Adult Acute Back Pain, Adult Acute back pain is sudden and usually short-lived. It is often caused by an injury to the muscles and tissues in the back. The injury may result from: A muscle, tendon, or ligament getting overstretched or torn. Ligaments are tissues that connect bones to each other. Lifting something improperly can cause a back strain. Wear and tear (degeneration) of the spinal disks. Spinal disks are circular tissue that provide cushioning between the bones of the spine (vertebrae). Twisting motions, such as while playing sports or doing yard work. A hit to the back. Arthritis. You may have a physical exam, lab tests, and imaging tests to find the cause of your pain. Acute back pain usually goes away with rest and home care. Follow these instructions at home: Managing pain, stiffness, and swelling Take yxti-onl-ujjwsde and prescription medicines only as told by your health care provider. Treatment may include medicines for pain and inflammation that are taken by mouth or applied to the skin, or muscle relaxants. Your health care provider may recommend applying ice during the first 24 48 hours after your pain starts. To do this: ?Put ice in a plastic bag. ?Place a towel between your skin and the bag. ?Leave the ice on for 20 minutes, 2 3 times a day. ?Remove the ice if your skin turns bright red. This is very important. If you cannot feel pain, heat, or cold, you have a greater risk of damage to the area. If directed, apply heat to the affected area as often as told by your health care provider. Use theheat source that your health care provider recommends, such as a moist heat pack or a heating pad. ?Place a towel between your skin and the heat source. ?Leave the heat on for 20 30 minutes. ?Remove the heat if your skin turns bright red. This is especially important if you are unable to feel pain, heat, or cold. You have a greater risk of getting burned. Activity Do not stay in bed. Staying in bed for more than 1 2 days can delay your recovery. Sit up and stand up straight. Avoid leaning forward when you sit or hunching over when you stand. ?If you work at a desk, sit close to it so you do not need to lean over. Keep your chin tucked in. Keep your neck drawn back, and keep your elbows bent at a 90-degree angle (right angle). ?Sit high and close to the steering wheel when you drive. Add lower back (lumbar) support to your car seat, if needed. Take short walks on even surfaces as soon as you are able. Try to increase the length of time you walk each day. Do not sit, drive, or intelligence consultant one place for more than 30 minutes at a time. Sitting or standing for long periods of time can put stress on your back. Do not drive or use heavy machinery while taking prescription pain medicine. Use proper lifting techniques. When you bend and lift, use positions that put less stress on your back: ?Bend your knees. ?Keep the load close to your body. ?Avoid twisting. Exercise regularly as told by your health care provider. Exercising helps your back heal faster andhelps prevent back injuries by keeping muscles strong and flexible. Work with a physical therapist to make a safe exercise program, as recommended by your health care provider. Do any exercises as told by your physical therapist. Lifestyle Maintain a healthy weight. Extra weight puts stress on your back and makes it difficult to have good posture. Avoid activities or situations that make you feel anxious or stressed. Stress and anxiety increase muscle tension and can make back pain worse. Learn ways to manage anxiety and stress, such as through exercise. General instructions Sleep on a firm mattress in a comfortable position. Try lying on your side with your knees slightlybent. If you lie on your back, put a pillow under your knees. Keep your head and neck in a straight line with your spine (neutral position) when using electronicequipment like smartphones or pads. To do this: ?Raise your smartphone or pad to look at it instead of bending your head or neck to look down. ?Put the smartphone or pad at the level of your face while looking at the screen. Follow your treatment plan as told by your health care provider. This may include: ?Cognitive or behavioral therapy. ?Acupuncture or massage therapy. ?Meditation or yoga. Contact a health care provider if: You have pain that is not relieved with rest or medicine. You have increasing pain going down into your legs or buttocks. Your pain does not improve after 2 weeks. You have pain at night. You lose weight without trying. You have a fever or chills. You develop nausea or vomiting. You develop abdominal pain. Get help right away if: You develop new bowel or bladder control problems. You have unusual weakness or numbness in your arms or legs. You feel faint. These symptoms may represent a serious problem that is an emergency. Do not wait to see if the symptoms will go away. Get medical help right away. Call your local emergency services (911 in the [place] Do not drive yourself to the hospital. Summary Acute back pain is sudden and usually short-lived. Use proper lifting techniques. When you bend and lift, use positions that put less stress on your back. Take goga-vbp-tgewmch and prescription medicines only as told by your health care provider, and apply heat or ice as told. This information is not intended to replace advice given to you by your health care provider. Make sure you discuss any questions you have with your health care provider. Document Revised: 06/02/2021 Document Reviewed: 06/02/2021 [employer] Patient Education 2022 [email or web address]. 01/12/2023 21:42:49 Contusion Contusion A contusion is a deep bruise. Contusions are the result of a blunt injury to tissues and muscle fibers under the skin. The injury causes bleeding under the skin. The skin overlying the contusion may turn blue, purple, or yellow. Minor injuries will give you a painless contusion, but more severe injuries cause contusions that may stay painful and swollen for a few weeks. Follow these instructions at home: Pay attention to any changes in your symptoms. Let your health care provider know about them. Take these actions to relieve your pain. Managing pain, stiffness, and swelling Use resting, icing, applying pressure (compression), and raising (elevating) the injured area. Thisis often called the RICE strategy. ?Rest the injured area. Return to your normal activities as told by your health care provider. Ask your health care provider what activities are safe for you. ?If directed, put ice on the injured area: ?Put ice in a plastic bag. ?Place a towel between your skin and the bag. ?Leave the ice on for 20 minutes, 2 3 times per day. ?If directed, apply light compression to the injured area using an elastic bandage. Make sure the bandage is not wrapped too tightly. Remove and reapply the bandage as directed by your health care provider. ?If possible, raise (elevate) the injured area above the level of your heart while you are sitting or lying down. General instructions Take iprl-ynh-mhkkekl and prescription medicines only as told by your health care provider. Keep all follow-up visits as told by your health care provider. This is important. Contact a health care provider if: Your symptoms do not improve after several days of treatment. Your symptoms get worse. You have difficulty moving the injured area. Get help right away if: You have severe pain. You have numbness in a hand or foot. Your hand or foot turns pale or cold. Summary A contusion is a deep bruise. Contusions are the result of a blunt injury to tissues and muscle fibers under the skin. It is treated with rest, ice, compression, and elevation. You may be given trym-egq-zyydqip medicines for pain. Contact a health care provider if your symptoms do not improve, or get worse. Get help right away if you have severe pain, have numbness, or the area turns pale or cold. This information is not intended to replace advice given to you by your health care provider. Make sure you discuss any questions you have with your health care provider. Document Revised: 01/23/2022 Document Reviewed: 01/04/2022 [employer] Patient Education 2022 [email or web address]. Follow Up Care 01/12/2023 20:23:40 With:Alondra LIZETT Address: [address] [place] [address] [address] [place] [address] Business (1) When:01/15/2023 21:37:43 Comments:Return to the emergency room if your pain gets worse or any new symptoms. [facility]10-21-2023 Evaluation + Plan noteExtracted from: Title:ED Note Author:Balbina Bryant M.D. te:01/12/23 1. Lumbar contusion (S30.0XX A: Contusion of lower back and pelvis, initial encounter) Orders: lidocaine topical, 1 patch(es), Topical, Daily, 7 EA, Refill(s) 0, apply 12 hours on and 12 hours off daily, [id number], 160, cm, 01/12/23 20:29:00 EDT, Height/Length Dosing, 114.3, kg, 01/12/23 20:29:00 EDT, Weight Dosing morphine, 4 mg = 2 mL, Injection, IntraMuscular, Once, Stop date 01/12/23 20:36:00 EDT, STAT, Start date 01/12/23 20:36:00 EDT, 01/12/23 20:36:00 EDT XR Spine Lumbosacral 2 or 3 Views [facility]10-19-2023 Evaluation + Plan noteExtracted from: Title:ED Note Author:Nikhil Tubbs DO Date:1 Back pain (M54.9: Dorsalgia, unspecified) Ordered: acetaminophen-oxycodone, 1 tab(s), Oral, q6hr Pain 8-10, 4 tab(s), Refill(s) 0, [id number], 160, cm, 01/10/23 10:36:00 EDT, Height/Length Dosing, 115.7, kg, 01/10/23 10:36:00 EDT, Weight Dosing Orders: ketorolac, 30 mg = 1 mL, Injection, IntraMuscular, Once, Stop date 01/10/23 11:37:00 EDT, STAT, Start date 01/10/23 11:37:00 EDT, 01/10/23 11:37:00 EDT methylPREDNISolone, = 1 packet(s), Oral, As Directed, as directed on package labeling, X 6 day(s), # 21 tab(s), Refills(s) 0, Pharmacy: [id number], 160, cm, 01/10/23 10:36:00 EDT, Height/Length Dosing, 115.7, kg, 01/10/23 10:36:00 EDT, Weight Dosing morphine, 4 mg = 2 mL, Injection, IntraMuscular, Once, Stop date 01/10/23 11:37:00 EDT, STAT, Start date 01/10/23 11:37:00 EDT, 01/10/23 11:37:00 EDT [facility]10-19-2023 Evaluation note* Encounter Date Diagnosis Assessment Notes Treatment Notes Treatment Clinical Notes Dec, Lumbar degenerative disc disease (ICD-10 - M51.36) Dec, Lumbar radiculopathy (ICD-10 - M54.16) I independently reviewed the MRI of the lumbar spine and the report the plain x-ray of the lumbar spine and report and the DEXA scan.Her bone quality is good. Her MRI shows mild lateral recess narrowing L4-5 with disc bulge. She has no overt nerve compromise her foramen are overall adequate her complaint of leg pain is down the very back of the legs bilaterally when pressed as to the exact path based on this MRI there is no pathology that would cause her a S1 radiculopathy and I believe this is why she got no improvement with the transforaminal injections this patient has axial back pain midline sacrum lumbar sacral junction and in my opinion her best option remains pain management I have given her a referral.She would like to go back to the [facility] and does not like coming all the way out to [place] for the pain management. Dec, Lumbosacral spondylosis (ICD-10 - M47.817) Dec, Chronic pain (ICD-10 - G89.29) [employer] Other 10-19-2023 Hospital Discharge instructions Patient Education 01/10/2023 11:36:59 Acute Back Pain, Adult Acute Back Pain, Adult Acute back pain is sudden and usually short-lived. It is often caused by an injury to the muscles and tissues in the back. The injury may result from: A muscle, tendon, or ligament getting overstretched or torn. Ligaments are tissues that connect bones to each other. Lifting something improperly can cause a back strain. Wear and tear (degeneration) of the spinal disks. Spinal disks are circular tissue that provide cushioning between the bones of the spine (vertebrae). Twisting motions, such as while playing sports or doing yard work. A hit to the back. Arthritis. You may have a physical exam, lab tests, and imaging tests to find the cause of your pain. Acute back pain usually goes away with rest and home care. Follow these instructions at home: Managing pain, stiffness, and swelling Take repe-iyn-cuhblip and prescription medicines only as told by your health care provider. Treatment may include medicines for pain and inflammation that are taken by mouth or applied to the skin, or muscle relaxants. Your health care provider may recommend applying ice during the first 24 48 hours after your pain starts. To do this: ?Put ice in a plastic bag. ?Place a towel between your skin and the bag. ?Leave the ice on for 20 minutes, 2 3 times a day. ?Remove the ice if your skin turns bright red. This is very important. If you cannot feel pain, heat, or cold, you have a greater risk of damage to the area. If directed, apply heat to the affected area as often as told by your health care provider. Use theheat source that your health care provider recommends, such as a moist heat pack or a heating pad. ?Place a towel between your skin and the heat source. ?Leave the heat on for 20 30 minutes. ?Remove the heat if your skin turns bright red. This is especially important if you are unable to feel pain, heat, or cold. You have a greater risk of getting burned. Activity Do not stay in bed. Staying in bed for more than 1 2 days can delay your recovery. Sit up and stand up straight. Avoid leaning forward when you sit or hunching over when you stand. ?If you work at a desk, sit close to it so you do not need to lean over. Keep your chin tucked in. Keep your neck drawn back, and keep your elbows bent at a 90-degree angle (right angle). ?Sit high and close to the steering wheel when you drive. Add lower back (lumbar) support to your car seat, if needed. Take short walks on even surfaces as soon as you are able. Try to increase the length of time you walk each day. Do not sit, drive, or intelligence consultant one place for more than 30 minutes at a time. Sitting or standing for long periods of time can put stress on your back. Do not drive or use heavy machinery while taking prescription pain medicine. Use proper lifting techniques. When you bend and lift, use positions that put less stress on your back: ?Bend your knees. ?Keep the load close to your body. ?Avoid twisting. Exercise regularly as told by your health care provider. Exercising helps your back heal faster andhelps prevent back injuries by keeping muscles strong and flexible. Work with a physical therapist to make a safe exercise program, as recommended by your health care provider. Do any exercises as told by your physical therapist. Lifestyle Maintain a healthy weight. Extra weight puts stress on your back and makes it difficult to have good posture. Avoid activities or situations that make you feel anxious or stressed. Stress and anxiety increase muscle tension and can make back pain worse. Learn ways to manage anxiety and stress, such as through exercise. General instructions Sleep on a firm mattress in a comfortable position. Try lying on your side with your knees slightlybent. If you lie on your back, put a pillow under your knees. Keep your head and neck in a straight line with your spine (neutral position) when using electronicequipment like smartphones or pads. To do this: ?Raise your smartphone or pad to look at it instead of bending your head or neck to look down. ?Put the smartphone or pad at the level of your face while looking at the screen. Follow your treatment plan as told by your health care provider. This may include: ?Cognitive or behavioral therapy. ?Acupuncture or massage therapy. ?Meditation or yoga. Contact a health care provider if: You have pain that is not relieved with rest or medicine. You have increasing pain going down into your legs or buttocks. Your pain does not improve after 2 weeks. You have pain at night. You lose weight without trying. You have a fever or chills. You develop nausea or vomiting. You develop abdominal pain. Get help right away if: You develop new bowel or bladder control problems. You have unusual weakness or numbness in your arms or legs. You feel faint. These symptoms may represent a serious problem that is an emergency. Do not wait to see if the symptoms will go away. Get medical help right away. Call your local emergency services (911 in the [place] Do not drive yourself to the hospital. Summary Acute back pain is sudden and usually short-lived. Use proper lifting techniques. When you bend and lift, use positions that put less stress on your back. Take tknk-tqu-dqsrknd and prescription medicines only as told by your health care provider, and apply heat or ice as told. This information is not intended to replace advice given to you by your health care provider. Make sure you discuss any questions you have with your health care provider. Document Revised: 06/02/2021 Document Reviewed: 06/02/2021 [employer] Patient Education 2022 [email or web address]. Follow Up Care 01/10/2023 10:31:11 With:Joe Meza Address: [address] [place], [place] [id number] [facility] (1) When:01/13/2023 11:35:28 Comments:Call the office of your primary care doctor to arrange for follow-up within the above-stated timeframe. Follow-up with your primary care doctor about this ED visit. You should review your labs, imaging, and diagnoses from this ED visit with your primary care physician. There are occasionally non-emergent findings that require additional follow-up after your ED visit. If you were prescribed medications you should discuss possible side-effects and drug interactions with your pharmacist. Call 911 or go to the nearest Emergency Department if you develop any new or worsening symptoms.Seek immediate medical attention if you develop: increasing pain, numbness, tingling, weakness, loss of motion inyour arms or legs, loss of control of your urine or stool, fever, abdominal pain, chest pain, shortness of breath, or any new or worsening symptoms. [facility]10-15-2023 Hospital Discharge instructions Additional Instructions Take medication as prescribed Follow-up with the doctor as scheduled this week Return to the ER for worsening pain fever weakness in her legs loss of bladder bowel control or any [facility] Phone: [phone] Hospital Discharge instructions Additional Instructions Keep follow up appointment with [facility] neurosurgery this week. She is uncertain of the name of the provider she is seeing. She was referred to the [facility] last week by Dr. Meza. [facility] Work Phone: [phone] Evaluation + Plan noteExtracted from: Title:ED Note Author:Balbina Bryant M.D. te:01/05/23 1. Contusion of lower back ( S30.0XXA: Contusion of lower back and pelvis, initial encounter) Ordered: acetaminophen-oxycodone, 1 tab(s), Oral, q6hr as needed for pain, 10 tab(s), Refill(s) 0, [id number], 160, cm, 01/04/23 21:16:00 EDT, Height/Length Dosing, 114.7, kg, 01/04/23 21:16:00 EDT, Weight Dosing 2. Lumbar herniated disc (M51.26: Other intervertebral disc displacement, lumbar region) Ordered: acetaminophen-oxycodone, 1 tab(s), Oral, q6hr as needed for pain, 10 tab(s), Refill(s) 0, [id number], 160, cm, 01/04/23 21:16:00 EDT, Height/Length Dosing, 114.7, kg, 01/04/23 21:16:00 EDT, Weight Dosing Orders: ketorolac, 60 mg = 2 mL, Injection, IntraMuscular, Once, Stop date 01/04/23 21:38:00 EDT, STAT, Start date 01/04/23 21:38:00 EDT, 01/04/23 21:38:00 EDT morphine, 4 mg = 2 mL, Injection, IntraMuscular, Once, Stop date 01/04/23 22:59:00 EDT, STAT, Start date 01/04/23 22:59:00 EDT, 01/04/23 22:59:00 EDT naproxen, 500 mg = 1 tab(s), Oral, BID, # 20 tab(s), Refills(s) 0, Pharmacy: [id number], 160, cm, 01/04/23 21:16:00 EDT, Height/Length Dosing, 114.7, kg, 01/04/23 21:16:00 EDT, Weight Dosing orphenadrine, 60 mg = 2 mL, Injection, IntraMuscular, Once, Stop date 01/04/23 21:39:00 EDT, STAT, Start date 01/04/23 21:39:00 EDT, 01/04/23 21:39:[address] Spine Lumbar w/o Contrast XR Hip 2-3 Views Left + Pelvis [facility]10-14-2023 Hospital Discharge instructions Patient Education 01/05/2023 00:38:20 Herniated Disk Herniated Disk A herniated disk, also called a ruptured disk or slipped disk, occurs when a disk in the spine bulges out too far. Between the bones in the spine (vertebrae), there are oval disks that are made of a soft, spongy center filled with liquid that is surrounded by a tough outer ring. The disks connect the vertebrae, help the spine move, and keep the bones from rubbing against each other when you move. When you have a herniated disk, the spongy center of the disk bulges out or breaks through the outer ring. The spongy center can press on a nerve between the vertebrae and cause pain. This can occur anywhere in the back or neck area, but the lower back is most commonly affected. What are the causes? This condition may be caused by: Age-related wear and tear. Sudden injury, such as a strain or sprain. What increases the risk? The following factors may make you more likely to develop this condition: Aging. This is the main risk factor for a herniated disk. Being a man who is 30 50 years old. Frequently doing activities that involve heavy lifting, bending, or twisting. Not getting enough exercise. Being overweight. Using tobacco products. What are the signs or symptoms? Symptoms may vary depending on where your herniated disk is located. A herniated disk in the lower back may cause: ?Sharp pain in part of the hips, buttocks, or legs. ?Sharp pain in the lower back, spreading down through the leg into the foot (sciatica). A herniated disk in the neck may cause dizziness and vertigo. It may also cause pain or weakness inthe neck, shoulder, or upper arm, forearm, or fingers. You may also have muscle weakness. You may have trouble: Lifting your leg or arm. Standing on your toes. Squeezing tightly with one of your hands. Other symptoms may include: Numbness or tingling in the affected areas of the hands, arms, feet, or legs. Inability to control when you urinate or when you have bowel movements. This is a rare but serious sign of a severe herniated disk in the lower back. How is this diagnosed? This condition may be diagnosed based on: Your symptoms. Your medical history. A physical exam. The exam may include: ?A straight-leg test. For this test, you will lie on your back while your health care provider lifts your leg, keeping your knee straight. If you feel pain, you likely have a herniated disk. ?Neurologic tests. These include checking for numbness, reflexes, muscle strength, and problems with posture. Imaging tests, such as: ?X-rays. ?MRI. ?CT scan. ?Electromyogram (EMG) to check the nerves that control muscles. How is this treated? Treatment for this condition may include: A period of light, painless activity for a few days to several weeks. Complete bed rest is not recommended. ?If you have a herniated disk in your lower back, avoid sitting as it increases pressure on the disk. Medicines. These may include: ?NSAIDs, such as ibuprofen, to help reduce pain and swelling. ?Muscle relaxants to prevent sudden tightening of the back muscles (back spasms). ?Prescription pain medicines, if you have severe pain. Ice or heat therapy. Steroid injections in the area of the herniated disk. These can help reduce pain and swelling. Physical therapy to strengthen your back muscles. In many cases, symptoms go away with treatment over a period of days or weeks. You will most likelybe free of symptoms after 3 4 months. If other treatments do not help to relieve your symptoms, youmay need surgery. Follow these instructions at home: Medicines Take wjlj-utq-zkeqmgp and prescription medicines only as told by your health care provider. Ask your health care provider if the medicine prescribed to you: ?Requires you to avoid driving or using heavy machinery. ?Can cause constipation. You may need to take these actions to prevent or treat constipation: ?Drink enough fluid to keep your urine pale yellow. ?Take orho-ily-ezjeflw or prescription medicines. ?Eat foods that are high in fiber, such as beans, whole grains, and fresh fruits and vegetables. ?Limit foods that are high in fat and processed sugars, such as fried or sweet foods. Managing pain, stiffness, and swelling If directed, put ice on the painful area. Icing can help to relieve pain. To do this: ?Put ice in a plastic bag. ?Place a towel between your skin and the bag. ?Leave the ice on for 20 minutes, 2 3 times a day. ?Remove the ice if your skin turns bright red. This is very important. If you cannot feel pain, heat, or cold, you have a greater risk of damage to the area. If directed, apply heat to the painful area as often as told by your health care provider. Heat canreduce the stiffness of your muscles. Use the heat source that your health care provider recommends, such as a moist heat pack or a heating pad. ?Place a towel between your skin and the heat source. ?Leave the heat on for 20 30 minutes. ?Remove the heat if your skin turns bright red. This is especially important if you are unable to feel pain, heat, or cold. You may have a greater risk of getting burned. Activity Avoid strict bed rest but only do activities that are painless. Gradually return to your normal activities and exercise as told by your health care provider. Ask your health care provider what activities and exercises are safe for you. Use good posture. Avoid movements that cause pain. Do not lift anything that is heavier than 10 lb (4.5 kg), or the limit that you are told, until your health care provider says that it is safe. Do not sit or stand for long periods of time without changing positions. Do not sit for long periods of time without getting up and moving around. If physical therapy was prescribed, do exercises as told by your health care provider. Aim to strengthen muscles in your back and abdomen with exercises such as swimming or walking. General instructions Do not use any products that contain nicotine or tobacco, such as cigarettes, e- cigarettes, and chewing tobacco. These products can delay healing. If you need help quitting, ask your health care provider. Do not wear high-heeled shoes. Do not sleep on your abdomen. If you are overweight, work with your health care provider to lose weight safely. Keep all follow-up visits. This is important. How is this prevented? Maintain a healthy weight. Maintain physical fitness. Do at least 150 minutes of moderate-intensity exercise each week, such as brisk walking or water aerobics. When lifting objects: ?Keep your feet at least shoulder-width apart and tighten the muscles of your abdomen. ?Keep your spine neutral as you bend your knees and hips. It is important to lift using the strength of your legs, not your back. Do not lock your knees straight out. ?Always ask for help to lift heavy or awkward objects. Contact a health care provider if you: Have back pain or neck pain that does not get better after 6 weeks. Have severe pain in your back, neck, legs, or arms. Develop numbness, tingling, or weakness anywhere in your body. Get help right away if: You cannot move your arms or legs. You cannot control when you urinate or have bowel movements. You feel dizzy or you faint. You have shortness of breath. These symptoms may represent a serious problem that is an emergency. Do not wait to see if the symptoms will go away. Get medical help right away. Call your local emergency services (911 in the [place] Do not drive yourself to the hospital. Summary A herniated disk, also called a ruptured disk or slipped disk, occurs when a disk in the spine bulges out too far (herniates). This condition may be caused by age-related wear and tear or a sudden injury. Symptoms may vary depending on where your herniated disk is located. Treatment may include rest, medicines, ice or heat therapy, steroid injections, and physical therapy. If other treatments do not help to relieve your symptoms, you may need surgery. This information is not intended to replace advice given to you by your health care provider. Make sure you discuss any questions you have with your health care provider. Document Revised: 06/29/2020 Document Reviewed: 06/29/2020 [employer] Patient Education 2022 [email or web address]. 01/05/2023 00:38:20 Contusion Contusion A contusion is a deep bruise. Contusions are the result of a blunt injury to tissues and muscle fibers under the skin. The injury causes bleeding under the skin. The skin overlying the contusion may turn blue, purple, or yellow. Minor injuries will give you a painless contusion, but more severe injuries cause contusions that may stay painful and swollen for a few weeks. Follow these instructions at home: Pay attention to any changes in your symptoms. Let your health care provider know about them. Take these actions to relieve your pain. Managing pain, stiffness, and swelling Use resting, icing, applying pressure (compression), and raising (elevating) the injured area. Thisis often called the RICE strategy. ?Rest the injured area. Return to your normal activities as told by your health care provider. Ask your health care provider what activities are safe for you. ?If directed, put ice on the injured area: ?Put ice in a plastic bag. ?Place a towel between your skin and the bag. ?Leave the ice on for 20 minutes, 2 3 times per day. ?If directed, apply light compression to the injured area using an elastic bandage. Make sure the bandage is not wrapped too tightly. Remove and reapply the bandage as directed by your health care provider. ?If possible, raise (elevate) the injured area above the level of your heart while you are sitting or lying down. General instructions Take rbme-sco-ccbvbam and prescription medicines only as told by your health care provider. Keep all follow-up visits as told by your health care provider. This is important. Contact a health care provider if: Your symptoms do not improve after several days of treatment. Your symptoms get worse. You have difficulty moving the injured area. Get help right away if: You have severe pain. You have numbness in a hand or foot. Your hand or foot turns pale or cold. Summary A contusion is a deep bruise. Contusions are the result of a blunt injury to tissues and muscle fibers under the skin. It is treated with rest, ice, compression, and elevation. You may be given jaul-pgz-biuuvfx medicines for pain. Contact a health care provider if your symptoms do not improve, or get worse. Get help right away if you have severe pain, have numbness, or the area turns pale or cold. This information is not intended to replace advice given to you by your health care provider. Make sure you discuss any questions you have with your health care provider. Document Revised: 01/23/2022 Document Reviewed: 01/04/2022 [employer] Patient Education 2022 [email or web address]. Follow Up Care 01/04/2023 21:05:36 With:Joe Meza Address: [address] [place] [phone]- Business (1) When:01/08/2023 Comments:Return to the emergency room if your pain gets worse, bowel or bladder incontinence, numbness/tingling in the saddle/groin area or any new symptoms. [facility]10-11-2023 Hospital Discharge instructions Patient Education 01/02/2023 16:56:30 Chronic Back Pain, Hots-za-Avtx Chronic Back Pain When back pain lasts longer than 3 months, it is called chronic back pain. Pain may get worse at certain times (flare-ups). There are things you can do at home to manage your pain. Follow these instructions at home: Pay attention to any changes in your symptoms. Take these actions to help with your pain: Managing pain and stiffness If told, put ice on the painful area. Your doctor may tell you to use ice for 24 48 hours after theflare-up starts. To do this: ?Put ice in a plastic bag. ?Place a towel between your skin and the bag. ?Leave the ice on for 20 minutes, 2 3 times a day. If told, put heat on the painful area. Do this as often as told by your doctor. Use the heat sourcethat your doctor recommends, such as a moist heat pack or a heating pad. ?Place a towel between your skin and the heat source. ?Leave the heat on for 20 30 minutes. ?Take off the heat if your skin turns bright red. This is especially important if you are unable tofeel pain, heat, or cold. You may have a greater risk of getting burned. Soak in a warm bath. This can help relieve pain. Activity Avoid bending and other activities that make pain worse. When standing: ?Keep your upper back and neck straight. ?Keep your shoulders pulled back. ?Avoid slouching. When sitting: ?Keep your back straight. ?Relax your shoulders. Do not round your shoulders or pull them backward. Do not sit or intelligence consultant one place for long periods of time. Take short rest breaks during the day. Lying down or standing is usually better than sitting. Resting can help relieve pain. When sitting or lying down for a long time, do some mild activity or stretching. This will help to prevent stiffness and pain. Get regular exercise. Ask your doctor what activities are safe for you. Do not lift anything that is heavier than 10 lb (4.5 kg) or the limit that you are told, until yourdoctor says that it is safe. To prevent injury when you lift things: ?Bend your knees. ?Keep the weight close to your body. ?Avoid twisting. Sleep on a firm mattress. Try lying on your side with your knees slightly bent. If you lie on your back, put a pillow under your knees. Medicines Treatment may include medicines for pain and swelling taken by mouth or put on the skin, prescription pain medicine, or muscle relaxants. Take aqxp-fzm-jjcdwfa and prescription medicines only as told by your doctor. Ask your doctor if the medicine prescribed to you: ?Requires you to avoid driving or using machinery. ?Can cause trouble pooping (constipation). You may need to take these actions to prevent or treat trouble pooping: ?Drink enough fluid to keep your pee (urine) pale yellow. ?Take kgnd-fya-zzkuhak or prescription medicines. ?Eat foods that are high in fiber. These include beans, whole grains, and fresh fruits and vegetables. ?Limit foods that are high in fat and sugars. These include fried or sweet foods. General instructions Do not use any products that contain nicotine or tobacco, such as cigarettes, e- cigarettes, and chewing tobacco. If you need help quitting, ask your doctor. Keep all follow-up visits as told by your doctor. This is important. Contact a doctor if: Your pain does not get better with rest or medicine. Your pain gets worse, or you have new pain. You have a high fever. You lose weight very quickly. You have trouble doing your normal activities. Get help right away if: One or both of your legs or feet feel weak. One or both of your legs or feet lose feeling (have numbness). You have trouble controlling when you poop (have a bowel movement) or pee (urinate). You have bad back pain and: ?You feel like you may vomit (nauseous), or you vomit. ?You have pain in your belly (abdomen). ?You have shortness of breath. ?You faint. Summary When back pain lasts longer than 3 months, it is called chronic back pain. Pain may get worse at certain times (flare-ups). Use ice and heat as told by your doctor. Your doctor may tell you to use ice after flare-ups. This information is not intended to replace advice given to you by your health care provider. Make sure you discuss any questions you have with your health care provider. Document Revised: 04/20/2020 Document Reviewed: 04/20/2020 [employer] Patient Education 2022 [employer] Follow Up Care 01/02/2023 15:59:31 With:Joe Meza Address: [address] [place], [place] [id number] Business (1) When:01/05/2023 16:20:40 [facility]10-11-2023 Evaluation + Plan noteExtracted from: Title:ED Note Author:Yaw MILES, Landon Celis te:01/02/23 Chronic back pain (M54.9: Do rsalgia, unspecified) Other chronic pain (G89.29: Other chronic pain) Orders: acetaminophen-oxycodone, 1 EA, Tab, Oral, Once, Stop date 01/02/23 16:19:00 EDT, STAT, Start date 01/02/23 16:19:00 EDT ketorolac, 30 mg = 1 mL, Injection, IntraMuscular, Once, Stop date 01/02/23 16:18:00 EDT, STAT, Start date 01/02/23 16:18:00 EDT, 01/02/23 16:18:00 EDT morphine, 4 mg = 2 mL, Injection, IntraMuscular, Once, Stop date 01/02/23 16:18:00 EDT, STAT, Start date 01/02/23 16:18:00 EDT, 01/02/23 16:18:00 EDT ondansetron, 4 mg = 1 tab(s), Oral, q8hr, PRN Nausea/Vomiting, # 12 tab(s), Refills(s) 0, Pharmacy: [facility]/pharmacy #[id number], 160, cm, 01/02/23 16:09:00 EDT, Height/Length Dosing, 114.2, kg, 01/02/23 16:09:00 EDT, Weight Dosing [facility]10-05-2023 Evaluation note* Encounter Date Diagnosis Assessment Notes Treatment Notes Treatment Clinical Notes Dec, Lumbosacral radiculopathy at L5 (ICD-10 - M54.17) All test reviewed with patient X-ray lumbar spine 4V reviewed from 12/09/2022 which shows no fracture or subluxation. Degenerative changes are redemonstrated in the lower lumbar spine greatest at L4-5 and L5-S1. Mild degeneration changes are noted in the sacroiliac joints.I independently reviewed the MRI of the lumbar spine from and which shows at the L4-L5 extensive spondylosis. Disc herniation with mild central canal stenosis. Facet ligamentum flavum hypertrophy. Marked bilateral neuroforaminal narrowing similar endplate edematous changes likely reactive consistent with Modic type I endplate change. L5-S1 similar mild spondylosis. Mild midline disc protrusion. Concavity enter thecal sac. Patent central canal. Facet ligamentum flavum hypertrophy. Moderate right and mild left neuroforaminal narrowing. Patient's symptoms seem to be L4-L5 L5-S1 with left greater than right. DEXA scan reviewed from 09/10/2022 which shows normal. Physical therapy notes from 09/06/2022 in which patient had 1 physical therapy session and was disengaged due to worsening of pain. Pain management notes reviewed with the most recent note from Dr. Garza from 12/26/2022 in which patient had minimal relief from injections. Medical management patient will continue with current medication as prescribed. Will order bilateral lower extremity EMG. -Follow up in 2 weeks for Sx Consult with Dr Meza. Dec, Lumbosacral spondylosis (ICD-10 - M47.817) Dec, Lumbar degenerative disc disease (ICD-10 - M51.36) [employer] Other 10-04-2023 Hospital Discharge instructions Patient Education 12/26/2022 17:49:33 Chronic Back Pain Chronic Back Pain When back pain lasts longer than 3 months, it is called chronic back pain. The cause of your back pain may not be known. Some common causes include: Wear and tear (degenerative disease) of the bones, ligaments, or disks in your back. Inflammation and stiffness in your back (arthritis). People who have chronic back pain often go through certain periods in which the pain is more intense (flare-ups). Many people can learn to manage the pain with home care. Follow these instructions at home: Pay attention to any changes in your symptoms. Take these actions to help with your pain: Managing pain and stiffness If directed, apply ice to the painful area. Your health care provider may recommend applying ice during the first 24 48 hours after a flare-up begins. To do this: ?Put ice in a plastic bag. ?Place a towel between your skin and the bag. ?Leave the ice on for 20 minutes, 2 3 times per day. If directed, apply heat to the affected area as often as told by your health care provider. Use theheat source that your health care provider recommends, such as a moist heat pack or a heating pad. ?Place a towel between your skin and the heat source. ?Leave the heat on for 20 30 minutes. ?Remove the heat if your skin turns bright red. This is especially important if you are unable to feel pain, heat, or cold. You may have a greater risk of getting burned. Try soaking in a warm tub. Activity Avoid bending and other activities that make the problem worse. Maintain a proper position when standing or sitting: ?When standing, keep your upper back and neck straight, with your shoulders pulled back. Avoid slouching. ?When sitting, keep your back straight and relax your shoulders. Do not round your shoulders or pull them backward. Do not sit or intelligence consultant one place for long periods of time. Take brief periods of rest throughout the day. This will reduce your pain. Resting in a lying or standing position is usually better than sitting to rest. When you are resting for longer periods, mix in some mild activity or stretching between periods ofrest. This will help to prevent stiffness and pain. Get regular exercise. Ask your health care provider what activities are safe for you. Do not lift anything that is heavier than 10 lb (4.5 kg), or the limit that you are told, until your health care provider says that it is safe. Always use proper lifting technique, which includes: ?Bending your knees. ?Keeping the load close to your body. ?Avoiding twisting. Sleep on a firm mattress in a comfortable position. Try lying on your side with your knees slightlybent. If you lie on your back, put a pillow under your knees. Medicines Treatment may include medicines for pain and inflammation taken by mouth or applied to the skin, prescription pain medicine, or muscle relaxants. Take szsd-lej-iqzytsd and prescription medicines onlyas told by your health care provider. Ask your health care provider if the medicine prescribed to you: ?Requires you to avoid driving or using machinery. ?Can cause constipation. You may need to take these actions to prevent or treat constipation: ?Drink enough fluid to keep your urine pale yellow. ?Take obww-fee-fjrgykf or prescription medicines. ?Eat foods that are high in fiber, such as beans, whole grains, and fresh fruits and vegetables. ?Limit foods that are high in fat and processed sugars, such as fried or sweet foods. General instructions Do not use any products that contain nicotine or tobacco, such as cigarettes, e- cigarettes, and chewing tobacco. If you need help quitting, ask your health care provider. Keep all follow-up visits as told by your health care provider. This is important. Contact a health care provider if: You have pain that is not relieved with rest or medicine. Your pain gets worse, or you have new pain. You have a high fever. You have rapid weight loss. You have trouble doing your normal activities. Get help right away if: You have weakness or numbness in one or both of your legs or feet. You have trouble controlling your bladder or your bowels. You have severe back pain and have any of the following: ?Nausea or vomiting. ?Pain in your abdomen. ?Shortness of breath or you faint. Summary Chronic back pain is back pain that lasts longer than 3 months. When a flare-up begins, apply ice to the painful area for the first 24 48 hours. Apply a moist heat pad or use a heating pad on the painful area as directed by your health care provider. When you are resting for longer periods, mix in some mild activity or stretching between periods ofrest. This will help to prevent stiffness and pain. This information is not intended to replace advice given to you by your health care provider. Make sure you discuss any questions you have with your health care provider. Document Revised: 04/20/2020 Document Reviewed: 04/20/2020 [employer] Patient Education 2022 [email or web address]. Follow Up Care 12/26/2022 16:21:06 With:Bridger Del Rosario Address: [address] [place] [address] [facility] [place] [address] Business (1) When:12/29/2022 16:53:27 [facility]10-04-2023 Evaluation + Plan noteExtracted from: Title:ED Note Author:Robert Taylor PA-C te:12/26/22 Chronic back pain (M54.9: Do rsalgia, unspecified) Ordered: acetaminophen-oxycodone, 1 tab(s), Oral, q6hr as needed for pain for 3 day(s), 8 tab(s), Refill(s) 0, [id number], 160, cm, 12/26/22 16:32:00 EDT, Height/Length Dosing, 113.8, kg, 12/26/22 16:32:00 EDT, Weight Dosing Other chronic pain (G89.29: Other chronic pain) Orders: ketorolac, 60 mg = 2 mL, Injection, IntraMuscular, Once, Stop date 12/26/22 16:52:00 EDT, STAT, Start date 12/26/22 16:52:00 EDT, 12/26/22 16:52:00 EDT morphine, 4 mg = 2 mL, Injection, IntraMuscular, Once, Stop date 12/26/22 16:52:00 EDT, STAT, Start date 12/26/22 16:52:00 EDT, 12/26/22 16:52:00 EDT ondansetron, 4 mg = 1 tab(s), Tab-Dis, Oral, Once, Stop date 12/26/22 16:52:00 EDT, STAT, Start date 12/26/22 16:52:00 EDT, 12/26/22 16:52:00 EDT [facility]10-04-2023 Evaluation note* Encounter Date Diagnosis Assessment Notes Treatment Notes Treatment Clinical Notes Dec, Lumbar degenerative disc disease (ICD-10 - M51.36) Follow up with Neurosurgery Dec, Lumbar radiculopathy (ICD-10 - M54.16) 47 year old female here for follow up status post right followed by left L4 and L5 transforaminal epidural steroid injection under fluoroscopic guidance. Patient reports minimal pain relief as well as improved walking, standing and daily functions following procedure. She continues to complain of low back pain with radiation down the bilateral lower extremities. She also notes numbness to bilateral lower extremities. Anatomy of spine as well as different treatment options were discussed in detail with patient in regards to patients condition. I feel we have exhausted nearly all interventional options. She is encouraged to follow up with [facility] for neurosurgery consultation as scheduled tomorrow. She can also see a tertiary center or chronic pain rehab in the future, if applicable. Dec, Sacroiliitis (ICD-10 - M46.1) Patient reports minimal pain relief or improved walking, standing and daily functions following procedure. Dec, Lumbosacral spondylosis (ICD-10 - M47.817) Continue with current treatment plan Dec, Chronic pain (ICD-10 - G89.29) No follow up. [employer] Other 10-01-2023 Hospital Discharge instructions Patient Education 12/23/2022 18:30:17 Acute Back Pain, Adult Acute Back Pain, Adult Acute back pain is sudden and usually short-lived. It is often caused by an injury to the muscles and tissues in the back. The injury may result from: A muscle, tendon, or ligament getting overstretched or torn. Ligaments are tissues that connect bones to each other. Lifting something improperly can cause a back strain. Wear and tear (degeneration) of the spinal disks. Spinal disks are circular tissue that provide cushioning between the bones of the spine (vertebrae). Twisting motions, such as while playing sports or doing yard work. A hit to the back. Arthritis. You may have a physical exam, lab tests, and imaging tests to find the cause of your pain. Acute back pain usually goes away with rest and home care. Follow these instructions at home: Managing pain, stiffness, and swelling Take cihj-fnv-keyehlj and prescription medicines only as told by your health care provider. Treatment may include medicines for pain and inflammation that are taken by mouth or applied to the skin, or muscle relaxants. Your health care provider may recommend applying ice during the first 24 48 hours after your pain starts. To do this: ?Put ice in a plastic bag. ?Place a towel between your skin and the bag. ?Leave the ice on for 20 minutes, 2 3 times a day. ?Remove the ice if your skin turns bright red. This is very important. If you cannot feel pain, heat, or cold, you have a greater risk of damage to the area. If directed, apply heat to the affected area as often as told by your health care provider. Use theheat source that your health care provider recommends, such as a moist heat pack or a heating pad. ?Place a towel between your skin and the heat source. ?Leave the heat on for 20 30 minutes. ?Remove the heat if your skin turns bright red. This is especially important if you are unable to feel pain, heat, or cold. You have a greater risk of getting burned. Activity Do not stay in bed. Staying in bed for more than 1 2 days can delay your recovery. Sit up and stand up straight. Avoid leaning forward when you sit or hunching over when you stand. ?If you work at a desk, sit close to it so you do not need to lean over. Keep your chin tucked in. Keep your neck drawn back, and keep your elbows bent at a 90-degree angle (right angle). ?Sit high and close to the steering wheel when you drive. Add lower back (lumbar) support to your car seat, if needed. Take short walks on even surfaces as soon as you are able. Try to increase the length of time you walk each day. Do not sit, drive, or intelligence consultant one place for more than 30 minutes at a time. Sitting or standing for long periods of time can put stress on your back. Do not drive or use heavy machinery while taking prescription pain medicine. Use proper lifting techniques. When you bend and lift, use positions that put less stress on your back: ?Bend your knees. ?Keep the load close to your body. ?Avoid twisting. Exercise regularly as told by your health care provider. Exercising helps your back heal faster andhelps prevent back injuries by keeping muscles strong and flexible. Work with a physical therapist to make a safe exercise program, as recommended by your health care provider. Do any exercises as told by your physical therapist. Lifestyle Maintain a healthy weight. Extra weight puts stress on your back and makes it difficult to have good posture. Avoid activities or situations that make you feel anxious or stressed. Stress and anxiety increase muscle tension and can make back pain worse. Learn ways to manage anxiety and stress, such as through exercise. General instructions Sleep on a firm mattress in a comfortable position. Try lying on your side with your knees slightlybent. If you lie on your back, put a pillow under your knees. Keep your head and neck in a straight line with your spine (neutral position) when using electronicequipment like smartphones or pads. To do this: ?Raise your smartphone or pad to look at it instead of bending your head or neck to look down. ?Put the smartphone or pad at the level of your face while looking at the screen. Follow your treatment plan as told by your health care provider. This may include: ?Cognitive or behavioral therapy. ?Acupuncture or massage therapy. ?Meditation or yoga. Contact a health care provider if: You have pain that is not relieved with rest or medicine. You have increasing pain going down into your legs or buttocks. Your pain does not improve after 2 weeks. You have pain at night. You lose weight without trying. You have a fever or chills. You develop nausea or vomiting. You develop abdominal pain. Get help right away if: You develop new bowel or bladder control problems. You have unusual weakness or numbness in your arms or legs. You feel faint. These symptoms may represent a serious problem that is an emergency. Do not wait to see if the symptoms will go away. Get medical help right away. Call your local emergency services (911 in the [place] Do not drive yourself to the hospital. Summary Acute back pain is sudden and usually short-lived. Use proper lifting techniques. When you bend and lift, use positions that put less stress on your back. Take oiqi-pir-hvlcnwj and prescription medicines only as told by your health care provider, and apply heat or ice as told. This information is not intended to replace advice given to you by your health care provider. Make sure you discuss any questions you have with your health care provider. Document Revised: 06/02/2021 Document Reviewed: 06/02/2021 [employer] Patient Education 2022 [employer] Follow Up Care 12/23/2022 16:55:38 With:Keep upcoming appointment with your spinal surgeon Address:Unknown When:12/26/2022 18:30:08 Comments:Seek immediate medical attention if you develop: increasing pain, numbness, tingling, weakness, loss of motion in your arms or legs, loss of control of your urine or stool, fever, abdominal pain, chest pain, shortness of breath, or any new or worsening symptoms. [facility]10-01-2023 Evaluation + Plan noteExtracted from: Title:ED Note Author:Nikhil Tubbs DO Date: Acute exacerbation of chroni c low back pain (M54.50: Low back pain, unspecified) Eloped from emergency department (Z53.21: Procedure and treatment not carried out due to patient leaving prior to being seen by health care provider) Other chronic pain (G89.29: Other chronic pain) Orders: cyclobenzaprine, 10 mg = 1 tab(s), Tab, Oral, Once, Stop date 12/23/22 18:01:00 EDT, STAT, Start date 12/23/22 18:01:00 EDT, 12/23/22 18:01:00 EDT cyclobenzaprine, 10 mg = 1 tab(s), Oral, TID, PRN Muscle pain, X 5 day(s), # 15 tab(s), Refills(s) 0, Pharmacy: [facility]/pharmacy #[id number], 160, cm, 12/23/22 17:18:00 EDT, Height/Length Dosing, 113.8, kg, 12/23/22 17:18:00 EDT, Weight Dosing ketorolac, 60 mg = 2 mL, Injection, IntraMuscular, Once, Stop date 12/23/22 18:00:00 EDT, STAT, Start date 12/23/22 18:00:00 EDT, 12/23/22 18:00:00 EDT lidocaine topical, 1 patch(es), Topical, Daily Pain, 7 EA, Refill(s) 0, apply 12 hours on and 12 hours off daily, [facility]/pharmacy #[id number], 160, cm, 12/23/22 17:18:00 EDT, Height/Length Dosing, 113.8, kg, 12/23/22 17:18:00 EDT, Weight Dosing naproxen, 500 mg = 1 tab(s), Oral, BID, PRN for pain, # 20 tab(s), Refills(s) 0, Pharmacy: [facility]/pharmacy #[id number], 160, cm, 12/23/22 17:18:00 EDT, Height/Length Dosing, 113.8, kg, 12/23/22 17:18:00 EDT, Weight Dosing XR Spine Lumbosacral 2 or 3 Views [facility]09-26-2023 Hospital Discharge instructions Patient Education 12/18/2022 13:31:19 Acute Back Pain, Adult Acute Back Pain, Adult Acute back pain is sudden and usually short-lived. It is often caused by an injury to the muscles and tissues in the back. The injury may result from: A muscle, tendon, or ligament getting overstretched or torn. Ligaments are tissues that connect bones to each other. Lifting something improperly can cause a back strain. Wear and tear (degeneration) of the spinal disks. Spinal disks are circular tissue that provide cushioning between the bones of the spine (vertebrae). Twisting motions, such as while playing sports or doing yard work. A hit to the back. Arthritis. You may have a physical exam, lab tests, and imaging tests to find the cause of your pain. Acute back pain usually goes away with rest and home care. Follow these instructions at home: Managing pain, stiffness, and swelling Take shrt-qpm-ygoguiq and prescription medicines only as told by your health care provider. Treatment may include medicines for pain and inflammation that are taken by mouth or applied to the skin, or muscle relaxants. Your health care provider may recommend applying ice during the first 24 48 hours after your pain starts. To do this: ?Put ice in a plastic bag. ?Place a towel between your skin and the bag. ?Leave the ice on for 20 minutes, 2 3 times a day. ?Remove the ice if your skin turns bright red. This is very important. If you cannot feel pain, heat, or cold, you have a greater risk of damage to the area. If directed, apply heat to the affected area as often as told by your health care provider. Use theheat source that your health care provider recommends, such as a moist heat pack or a heating pad. ?Place a towel between your skin and the heat source. ?Leave the heat on for 20 30 minutes. ?Remove the heat if your skin turns bright red. This is especially important if you are unable to feel pain, heat, or cold. You have a greater risk of getting burned. Activity Do not stay in bed. Staying in bed for more than 1 2 days can delay your recovery. Sit up and stand up straight. Avoid leaning forward when you sit or hunching over when you stand. ?If you work at a desk, sit close to it so you do not need to lean over. Keep your chin tucked in. Keep your neck drawn back, and keep your elbows bent at a 90-degree angle (right angle). ?Sit high and close to the steering wheel when you drive. Add lower back (lumbar) support to your car seat, if needed. Take short walks on even surfaces as soon as you are able. Try to increase the length of time you walk each day. Do not sit, drive, or intelligence consultant one place for more than 30 minutes at a time. Sitting or standing for long periods of time can put stress on your back. Do not drive or use heavy machinery while taking prescription pain medicine. Use proper lifting techniques. When you bend and lift, use positions that put less stress on your back: ?Bend your knees. ?Keep the load close to your body. ?Avoid twisting. Exercise regularly as told by your health care provider. Exercising helps your back heal faster andhelps prevent back injuries by keeping muscles strong and flexible. Work with a physical therapist to make a safe exercise program, as recommended by your health care provider. Do any exercises as told by your physical therapist. Lifestyle Maintain a healthy weight. Extra weight puts stress on your back and makes it difficult to have good posture. Avoid activities or situations that make you feel anxious or stressed. Stress and anxiety increase muscle tension and can make back pain worse. Learn ways to manage anxiety and stress, such as through exercise. General instructions Sleep on a firm mattress in a comfortable position. Try lying on your side with your knees slightlybent. If you lie on your back, put a pillow under your knees. Keep your head and neck in a straight line with your spine (neutral position) when using electronicequipment like smartphones or pads. To do this: ?Raise your smartphone or pad to look at it instead of bending your head or neck to look down. ?Put the smartphone or pad at the level of your face while looking at the screen. Follow your treatment plan as told by your health care provider. This may include: ?Cognitive or behavioral therapy. ?Acupuncture or massage therapy. ?Meditation or yoga. Contact a health care provider if: You have pain that is not relieved with rest or medicine. You have increasing pain going down into your legs or buttocks. Your pain does not improve after 2 weeks. You have pain at night. You lose weight without trying. You have a fever or chills. You develop nausea or vomiting. You develop abdominal pain. Get help right away if: You develop new bowel or bladder control problems. You have unusual weakness or numbness in your arms or legs. You feel faint. These symptoms may represent a serious problem that is an emergency. Do not wait to see if the symptoms will go away. Get medical help right away. Call your local emergency services (911 in the [place] Do not drive yourself to the hospital. Summary Acute back pain is sudden and usually short-lived. Use proper lifting techniques. When you bend and lift, use positions that put less stress on your back. Take ipnh-qdn-rggtxna and prescription medicines only as told by your health care provider, and apply heat or ice as told. This information is not intended to replace advice given to you by your health care provider. Make sure you discuss any questions you have with your health care provider. Document Revised: 06/02/2021 Document Reviewed: 06/02/2021 [employer] Patient Education 2022 [email or web address]. Follow Up Care 12/18/2022 12:20:19 With:Joe Meza Address: [address] [place], [place] [id number] [facility] (1) When:12/21/2022 12:52:24 [facility]09-21-2023 Hospital Discharge instructions Patient Education 12/13/2022 19:09:28 Chronic Back Pain Chronic Back Pain When back pain lasts longer than 3 months, it is called chronic back pain. The cause of your back pain may not be known. Some common causes include: Wear and tear (degenerative disease) of the bones, ligaments, or disks in your back. Inflammation and stiffness in your back (arthritis). People who have chronic back pain often go through certain periods in which the pain is more intense (flare-ups). Many people can learn to manage the pain with home care. Follow these instructions at home: Pay attention to any changes in your symptoms. Take these actions to help with your pain: Managing pain and stiffness If directed, apply ice to the painful area. Your health care provider may recommend applying ice during the first 24 48 hours after a flare-up begins. To do this: ?Put ice in a plastic bag. ?Place a towel between your skin and the bag. ?Leave the ice on for 20 minutes, 2 3 times per day. If directed, apply heat to the affected area as often as told by your health care provider. Use theheat source that your health care provider recommends, such as a moist heat pack or a heating pad. ?Place a towel between your skin and the heat source. ?Leave the heat on for 20 30 minutes. ?Remove the heat if your skin turns bright red. This is especially important if you are unable to feel pain, heat, or cold. You may have a greater risk of getting burned. Try soaking in a warm tub. Activity Avoid bending and other activities that make the problem worse. Maintain a proper position when standing or sitting: ?When standing, keep your upper back and neck straight, with your shoulders pulled back. Avoid slouching. ?When sitting, keep your back straight and relax your shoulders. Do not round your shoulders or pull them backward. Do not sit or intelligence consultant one place for long periods of time. Take brief periods of rest throughout the day. This will reduce your pain. Resting in a lying or standing position is usually better than sitting to rest. When you are resting for longer periods, mix in some mild activity or stretching between periods ofrest. This will help to prevent stiffness and pain. Get regular exercise. Ask your health care provider what activities are safe for you. Do not lift anything that is heavier than 10 lb (4.5 kg), or the limit that you are told, until your health care provider says that it is safe. Always use proper lifting technique, which includes: ?Bending your knees. ?Keeping the load close to your body. ?Avoiding twisting. Sleep on a firm mattress in a comfortable position. Try lying on your side with your knees slightlybent. If you lie on your back, put a pillow under your knees. Medicines Treatment may include medicines for pain and inflammation taken by mouth or applied to the skin, prescription pain medicine, or muscle relaxants. Take vacu-xsp-diytxsp and prescription medicines onlyas told by your health care provider. Ask your health care provider if the medicine prescribed to you: ?Requires you to avoid driving or using machinery. ?Can cause constipation. You may need to take these actions to prevent or treat constipation: ?Drink enough fluid to keep your urine pale yellow. ?Take buqg-jgg-tyfuyvd or prescription medicines. ?Eat foods that are high in fiber, such as beans, whole grains, and fresh fruits and vegetables. ?Limit foods that are high in fat and processed sugars, such as fried or sweet foods. General instructions Do not use any products that contain nicotine or tobacco, such as cigarettes, e- cigarettes, and chewing tobacco. If you need help quitting, ask your health care provider. Keep all follow-up visits as told by your health care provider. This is important. Contact a health care provider if: You have pain that is not relieved with rest or medicine. Your pain gets worse, or you have new pain. You have a high fever. You have rapid weight loss. You have trouble doing your normal activities. Get help right away if: You have weakness or numbness in one or both of your legs or feet. You have trouble controlling your bladder or your bowels. You have severe back pain and have any of the following: ?Nausea or vomiting. ?Pain in your abdomen. ?Shortness of breath or you faint. Summary Chronic back pain is back pain that lasts longer than 3 months. When a flare-up begins, apply ice to the painful area for the first 24 48 hours. Apply a moist heat pad or use a heating pad on the painful area as directed by your health care provider. When you are resting for longer periods, mix in some mild activity or stretching between periods ofrest. This will help to prevent stiffness and pain. This information is not intended to replace advice given to you by your health care provider. Make sure you discuss any questions you have with your health care provider. Document Revised: 04/20/2020 Document Reviewed: 04/20/2020 [employer] Patient Education 2022 [email or web address]. Follow Up Care 12/13/2022 17:19:50 With:Joe Meza Address: [address] [place] [phone] Business (1) When:12/16/2022 18:50:16 [facility]09-21-2023 Hospital Discharge instructions Patient Education 12/12/2022 23:52:47 Paresthesia Paresthesia Paresthesia is an abnormal burning or prickling sensation. It is usually felt in the hands, arms, legs, or feet. However, it may occur in any part of the body. Usually, paresthesia is not painful. Itmay feel like: Tingling or numbness. Buzzing. Itching. Paresthesia may occur without any clear cause, or it may be caused by: Breathing too quickly (hyperventilation). Pressure on a nerve. An underlying medical condition. Side effects of a medicine. Nutritional deficiencies. Exposure to toxic chemicals. Most people experience temporary (transient) paresthesia at some time in their lives. For some people, it may be long-lasting (chronic) because of an underlying medical condition. If you have paresthesia that lasts a long time, you need to be evaluated by your health care provider. Follow these instructions at home: Nutrition Eat a healthy diet. This includes: Eating foods that are high in fiber, such as beans, whole grains, and fresh fruits and vegetables. Limiting foods that are high in fat and processed sugars, such as fried or sweet foods. Alcohol use Avoid or limit alcohol. Too much alcohol can cause a vitamin B deficiency, and vitamin B is needed for healthy nerves. Do not drink alcohol if: ?Your health care provider tells you not to drink. ?You are , may be , or are planning to become . If you drink alcohol: ?Limit how much you have to: ?0 1 drink a day for women. ?0 2 drinks a day for men. ?Know how much alcohol is in your drink. In the [place] one drink equals one 12 oz bottle of beer (355 mL), one 5 oz glass of wine (148 mL), or one 1 oz glass of hard liquor (44 mL). General instructions Take hecg-cok-zttxugh and prescription medicines only as told by your health care provider. Do not use any products that contain nicotine or tobacco. These products include cigarettes, chewing tobacco, and vaping devices, such as e-cigarettes. If you need help quitting, ask your health careprovider. If you have diabetes, work closely with your health care provider to keep your blood sugar under control. If you have numbness in your feet: ?Check every day for signs of injury or infection. Watch for redness, warmth, and swelling. ?Wear padded socks and comfortable shoes. These help protect your feet. Keep all follow-up visits. This is important. Contact a health care provider if you: Have paresthesia that gets worse or does not go away. Have numbness after an injury. Have a burning or prickling feeling that gets worse when you walk. Have pain, cramps, or dizziness, or you faint. Develop a rash. Get help right away if you: Feel muscle weakness. Develop new weakness in an arm or leg. Have trouble walking or moving. Have problems with speech, understanding, or vision. Feel confused. Cannot control your bladder or bowel movements. These symptoms may be an emergency. Get help right away. Call 911. Do not wait to see if the symptoms will go away. Do not drive yourself to the hospital. Summary Paresthesia is an abnormal burning or prickling sensation that is usually felt in the hands, arms, legs, or feet. It may also occur in other parts of the body. Paresthesia may occur without any clear cause, or it may be caused by breathing too quickly (hyperventilation), pressure on a nerve, an underlying medical condition, side effects of a medicine, nutritional deficiencies, or exposure to toxic chemicals. If you have paresthesia that lasts a long time, you need to be evaluated by your health care provider. This information is not intended to replace advice given to you by your health care provider. Make sure you discuss any questions you have with your health care provider. Document Revised: 11/20/2021 Document Reviewed: 11/20/2021 [employer] Patient Education 2022 [email or web address]. 12/12/2022 23:52:47 Chronic Back Pain Chronic Back Pain When back pain lasts longer than 3 months, it is called chronic back pain. The cause of your back pain may not be known. Some common causes include: Wear and tear (degenerative disease) of the bones, ligaments, or disks in your back. Inflammation and stiffness in your back (arthritis). People who have chronic back pain often go through certain periods in which the pain is more intense (flare-ups). Many people can learn to manage the pain with home care. Follow these instructions at home: Pay attention to any changes in your symptoms. Take these actions to help with your pain: Managing pain and stiffness If directed, apply ice to the painful area. Your health care provider may recommend applying ice during the first 24 48 hours after a flare-up begins. To do this: ?Put ice in a plastic bag. ?Place a towel between your skin and the bag. ?Leave the ice on for 20 minutes, 2 3 times per day. If directed, apply heat to the affected area as often as told by your health care provider. Use theheat source that your health care provider recommends, such as a moist heat pack or a heating pad. ?Place a towel between your skin and the heat source. ?Leave the heat on for 20 30 minutes. ?Remove the heat if your skin turns bright red. This is especially important if you are unable to feel pain, heat, or cold. You may have a greater risk of getting burned. Try soaking in a warm tub. Activity Avoid bending and other activities that make the problem worse. Maintain a proper position when standing or sitting: ?When standing, keep your upper back and neck straight, with your shoulders pulled back. Avoid slouching. ?When sitting, keep your back straight and relax your shoulders. Do not round your shoulders or pull them backward. Do not sit or intelligence consultant one place for long periods of time. Take brief periods of rest throughout the day. This will reduce your pain. Resting in a lying or standing position is usually better than sitting to rest. When you are resting for longer periods, mix in some mild activity or stretching between periods ofrest. This will help to prevent stiffness and pain. Get regular exercise. Ask your health care provider what activities are safe for you. Do not lift anything that is heavier than 10 lb (4.5 kg), or the limit that you are told, until your health care provider says that it is safe. Always use proper lifting technique, which includes: ?Bending your knees. ?Keeping the load close to your body. ?Avoiding twisting. Sleep on a firm mattress in a comfortable position. Try lying on your side with your knees slightlybent. If you lie on your back, put a pillow under your knees. Medicines Treatment may include medicines for pain and inflammation taken by mouth or applied to the skin, prescription pain medicine, or muscle relaxants. Take zaez-uda-lkqixgw and prescription medicines onlyas told by your health care provider. Ask your health care provider if the medicine prescribed to you: ?Requires you to avoid driving or using machinery. ?Can cause constipation. You may need to take these actions to prevent or treat constipation: ?Drink enough fluid to keep your urine pale yellow. ?Take ixre-ogx-vdyipsf or prescription medicines. ?Eat foods that are high in fiber, such as beans, whole grains, and fresh fruits and vegetables. ?Limit foods that are high in fat and processed sugars, such as fried or sweet foods. General instructions Do not use any products that contain nicotine or tobacco, such as cigarettes, e- cigarettes, and chewing tobacco. If you need help quitting, ask your health care provider. Keep all follow-up visits as told by your health care provider. This is important. Contact a health care provider if: You have pain that is not relieved with rest or medicine. Your pain gets worse, or you have new pain. You have a high fever. You have rapid weight loss. You have trouble doing your normal activities. Get help right away if: You have weakness or numbness in one or both of your legs or feet. You have trouble controlling your bladder or your bowels. You have severe back pain and have any of the following: ?Nausea or vomiting. ?Pain in your abdomen. ?Shortness of breath or you faint. Summary Chronic back pain is back pain that lasts longer than 3 months. When a flare-up begins, apply ice to the painful area for the first 24 48 hours. Apply a moist heat pad or use a heating pad on the painful area as directed by your health care provider. When you are resting for longer periods, mix in some mild activity or stretching between periods ofrest. This will help to prevent stiffness and pain. This information is not intended to replace advice given to you by your health care provider. Make sure you discuss any questions you have with your health care provider. Document Revised: 04/20/2020 Document Reviewed: 04/20/2020 [employer] Patient Education 2022 [email or web address]. Follow Up Care 12/12/2022 20:51:35 With:XXXX NONE Address: [place] When:12/15/2022 Comments:[facility] of your primary care doctor to arrange for follow-up within the above-stated timeframe. Follow-up with your primary care doctor about this ED visit. You should review your labs, imaging, and diagnoses from this ED visit with your primarycare physician. If you were prescribed medications you should discuss possible side- effects and drug interactions with your pharmacist. Call 911 or go to the nearest Emergency Department if you develop any new or worsening symptoms. [facility]09-20-2023 Evaluation + Plan noteExtracted from: Title:ED Note Author:Sam Dowd PA-C Gerry e:12/12/22 Low back pain (M54.50: Low b ack pain, unspecified) Lower extremity pain, left (M79.605: Pain in left leg) Paresthesia of lower extremity (R20.2: Paresthesia of skin) Orders: acetaminophen-oxycodone, 1 EA, Tab, Oral, Once, Stop date 12/12/22 23:51:00 EDT, STAT, Start date 12/12/22 23:51:00 EDT lorazepam, 0.5 mg = 0.25 mL, Injection, IV Push, Once, Stop date 12/12/22 22:00:00 EDT, Start date 12/12/22 22:00:00 EDT, 12/12/22 21:53:00 EDT morphine, 4 mg = 2 mL, Injection, IV Push, Once, Stop date 12/12/22 23:27:00 EDT, STAT, Start date 12/12/22 23:27:00 EDT, 12/12/22 23:27:00 EDT ondansetron, 4 mg = 2 mL, Injection, IV Push, Once, Stop date 12/12/22 23:27:00 EDT, STAT, Start date 12/12/22 23:27:00 EDT, 12/12/22 23:27:00 EDT Automated Diff Basic Metabolic Panel CBC w/ Auto Diff eGFR Extra Blue Tube MRI Spine Lumbar w/o Contrast XR Chest Single View [facility]09-20-2023 Procedure [facility]09-15-2023 Hospital Discharge instructions Patient Education 12/07/2022 18:55:05 Chronic Back Pain, Njus-ep-Suev Chronic Back Pain When back pain lasts longer than 3 months, it is called chronic back pain. Pain may get worse at certain times (flare-ups). There are things you can do at home to manage your pain. Follow these instructions at home: Pay attention to any changes in your symptoms. Take these actions to help with your pain: Managing pain and stiffness If told, put ice on the painful area. Your doctor may tell you to use ice for 24 48 hours after theflare-up starts. To do this: ?Put ice in a plastic bag. ?Place a towel between your skin and the bag. ?Leave the ice on for 20 minutes, 2 3 times a day. If told, put heat on the painful area. Do this as often as told by your doctor. Use the heat sourcethat your doctor recommends, such as a moist heat pack or a heating pad. ?Place a towel between your skin and the heat source. ?Leave the heat on for 20 30 minutes. ?Take off the heat if your skin turns bright red. This is especially important if you are unable tofeel pain, heat, or cold. You may have a greater risk of getting burned. Soak in a warm bath. This can help relieve pain. Activity Avoid bending and other activities that make pain worse. When standing: ?Keep your upper back and neck straight. ?Keep your shoulders pulled back. ?Avoid slouching. When sitting: ?Keep your back straight. ?Relax your shoulders. Do not round your shoulders or pull them backward. Do not sit or intelligence consultant one place for long periods of time. Take short rest breaks during the day. Lying down or standing is usually better than sitting. Resting can help relieve pain. When sitting or lying down for a long time, do some mild activity or stretching. This will help to prevent stiffness and pain. Get regular exercise. Ask your doctor what activities are safe for you. Do not lift anything that is heavier than 10 lb (4.5 kg) or the limit that you are told, until yourdoctor says that it is safe. To prevent injury when you lift things: ?Bend your knees. ?Keep the weight close to your body. ?Avoid twisting. Sleep on a firm mattress. Try lying on your side with your knees slightly bent. If you lie on your back, put a pillow under your knees. Medicines Treatment may include medicines for pain and swelling taken by mouth or put on the skin, prescription pain medicine, or muscle relaxants. Take bwck-mie-tiatord and prescription medicines only as told by your doctor. Ask your doctor if the medicine prescribed to you: ?Requires you to avoid driving or using machinery. ?Can cause trouble pooping (constipation). You may need to take these actions to prevent or treat trouble pooping: ?Drink enough fluid to keep your pee (urine) pale yellow. ?Take vcgj-mle-abaxlmy or prescription medicines. ?Eat foods that are high in fiber. These include beans, whole grains, and fresh fruits and vegetables. ?Limit foods that are high in fat and sugars. These include fried or sweet foods. General instructions Do not use any products that contain nicotine or tobacco, such as cigarettes, e- cigarettes, and chewing tobacco. If you need help quitting, ask your doctor. Keep all follow-up visits as told by your doctor. This is important. Contact a doctor if: Your pain does not get better with rest or medicine. Your pain gets worse, or you have new pain. You have a high fever. You lose weight very quickly. You have trouble doing your normal activities. Get help right away if: One or both of your legs or feet feel weak. One or both of your legs or feet lose feeling (have numbness). You have trouble controlling when you poop (have a bowel movement) or pee (urinate). You have bad back pain and: ?You feel like you may vomit (nauseous), or you vomit. ?You have pain in your belly (abdomen). ?You have shortness of breath. ?You faint. Summary When back pain lasts longer than 3 months, it is called chronic back pain. Pain may get worse at certain times (flare-ups). Use ice and heat as told by your doctor. Your doctor may tell you to use ice after flare-ups. This information is not intended to replace advice given to you by your health care provider. Make sure you discuss any questions you have with your health care provider. Document Revised: 04/20/2020 Document Reviewed: 04/20/2020 [employer] Patient Education 2022 [email or web address]. 12/07/2022 18:55:05 Acute Back Pain, Adult Acute Back Pain, Adult Acute back pain is sudden and usually short-lived. It is often caused by an injury to the muscles and tissues in the back. The injury may result from: A muscle, tendon, or ligament getting overstretched or torn. Ligaments are tissues that connect bones to each other. Lifting something improperly can cause a back strain. Wear and tear (degeneration) of the spinal disks. Spinal disks are circular tissue that provide cushioning between the bones of the spine (vertebrae). Twisting motions, such as while playing sports or doing yard work. A hit to the back. Arthritis. You may have a physical exam, lab tests, and imaging tests to find the cause of your pain. Acute back pain usually goes away with rest and home care. Follow these instructions at home: Managing pain, stiffness, and swelling Take vlah-era-zbyjleq and prescription medicines only as told by your health care provider. Treatment may include medicines for pain and inflammation that are taken by mouth or applied to the skin, or muscle relaxants. Your health care provider may recommend applying ice during the first 24 48 hours after your pain starts. To do this: ?Put ice in a plastic bag. ?Place a towel between your skin and the bag. ?Leave the ice on for 20 minutes, 2 3 times a day. ?Remove the ice if your skin turns bright red. This is very important. If you cannot feel pain, heat, or cold, you have a greater risk of damage to the area. If directed, apply heat to the affected area as often as told by your health care provider. Use theheat source that your health care provider recommends, such as a moist heat pack or a heating pad. ?Place a towel between your skin and the heat source. ?Leave the heat on for 20 30 minutes. ?Remove the heat if your skin turns bright red. This is especially important if you are unable to feel pain, heat, or cold. You have a greater risk of getting burned. Activity Do not stay in bed. Staying in bed for more than 1 2 days can delay your recovery. Sit up and stand up straight. Avoid leaning forward when you sit or hunching over when you stand. ?If you work at a desk, sit close to it so you do not need to lean over. Keep your chin tucked in. Keep your neck drawn back, and keep your elbows bent at a 90-degree angle (right angle). ?Sit high and close to the steering wheel when you drive. Add lower back (lumbar) support to your car seat, if needed. Take short walks on even surfaces as soon as you are able. Try to increase the length of time you walk each day. Do not sit, drive, or intelligence consultant one place for more than 30 minutes at a time. Sitting or standing for long periods of time can put stress on your back. Do not drive or use heavy machinery while taking prescription pain medicine. Use proper lifting techniques. When you bend and lift, use positions that put less stress on your back: ?Bend your knees. ?Keep the load close to your body. ?Avoid twisting. Exercise regularly as told by your health care provider. Exercising helps your back heal faster andhelps prevent back injuries by keeping muscles strong and flexible. Work with a physical therapist to make a safe exercise program, as recommended by your health care provider. Do any exercises as told by your physical therapist. Lifestyle Maintain a healthy weight. Extra weight puts stress on your back and makes it difficult to have good posture. Avoid activities or situations that make you feel anxious or stressed. Stress and anxiety increase muscle tension and can make back pain worse. Learn ways to manage anxiety and stress, such as through exercise. General instructions Sleep on a firm mattress in a comfortable position. Try lying on your side with your knees slightlybent. If you lie on your back, put a pillow under your knees. Keep your head and neck in a straight line with your spine (neutral position) when using electronicequipment like smartphones or pads. To do this: ?Raise your smartphone or pad to look at it instead of bending your head or neck to look down. ?Put the smartphone or pad at the level of your face while looking at the screen. Follow your treatment plan as told by your health care provider. This may include: ?Cognitive or behavioral therapy. ?Acupuncture or massage therapy. ?Meditation or yoga. Contact a health care provider if: You have pain that is not relieved with rest or medicine. You have increasing pain going down into your legs or buttocks. Your pain does not improve after 2 weeks. You have pain at night. You lose weight without trying. You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 patient, which shows moderate disc space narrowing L4-L5 and L5-S1 without any spondylolisthesis. Similar to previous study. Flory get notes from Physical Therapy. Will order MRI to rule out any cord compression and determin interventional procdures. Will refer to pain managment Dr Garza for SI injections. Due to previous history of hysterectomy greater than 10 years vitamin D deficiency, will order Dexa scan to rule out osteoporosis. OARRS reviewed 470 discussion of use of Rx risks. Will follow up 4 weeks or once MRI is completed. Medical decision making shows a new problem to me with further workup planned or suggested with the potential for extensive treatment options that were considered with the most applicable given this patient's situation as noted above. Treatment options considered include a combination of physical therapy approaches, pharmacologic management, and interventional procedures. Those most applicable to the patient were discussed at this time. Risk of complications and/or morbidity and mortality is high given that acute and chronic pain poses a threat to life and bodily function if undertreated, poorly treated or with failure to maintain adequate treatment and timely followup. Given the serious and fluctuating nature of pain with extensive consideration for whenever pain changes, there always remains the possibility of prolonged functional impairment requiring constant patient reassessment and high-level medical decision making. The amount and complexity of data reviewed is high given that patient labs, radiology reports, and other test were obtained, reviewed and summarized as applicable from the physician portal and/or outside medical records. Pertinent positive and negative findings were considered in medical decision-making July, Acute left-sided low back pain, unspecified whether sciatica present (ICD-10 - M54.50) July, Post-menopausal (ICD-10 - Z78.0) July, Encounter for screening for depression (ICD-10 - Z13.31) PHQ reviewed score 0 negative screening for July, Severe obesity (BMI >= 40) (ICD-10 - E66.01) Discussion of diet and exercise, decrease sugar intake. Advised of 1pound over is equvilent to 4-6 pounds of pressure on the spine. [employer] Other 01-06-2022 Evaluation note* Encounter Date Diagnosis Assessment Notes Treatment Notes Treatment Clinical Notes Mar, DDD (degenerative disc disease), lumbar (ICD-10 - M51.36) Patient's main complaint continues to be her axial back pain symptoms that radiate into her left lower extremity. Given these findings as well as MRI results and physical exam we will plan to proceed with lumbar epidural steroid injection. Risks and benefits of procedure explained to patient; patient verbalizes understanding. Anatomy of spine discussed in detail with patient in regards to patients condition. Mar, Other low back pain (ICD-10 - M54.59) Mar, Other Above note written by Ina Regalado LPN, Pediatric Physician Assistant. Edited and approved by Dr. Avery Goodman MD. Medical decision making shows a new problem to me with further workup planned or suggested with the potential for extensive treatment options that were considered with the most applicable given this patient's situation as noted above. Treatment options considered include a combination of physical therapy approaches, pharmacologic management, and interventional procedures. Those most applicable to the patient were discussed at this time. Risk of complications and/or morbidity and mortality is high given that acute and chronic pain poses a threat to life and bodily function if undertreated, poorly treated or with failure to maintain adequate treatment and timely followup. Given the serious and fluctuating nature of pain with extensive consideration for whenever pain changes, there always remains the possibility of prolonged functional impairment requiring constant patient reassessment and high-level medical decision making. The amount and complexity of data reviewed is high given that patient labs, radiology reports, and other test were obtained, reviewed and summarized as applicable from the physician portal and/or outside medical records. Pertinent positive and negative findings were considered in medical decision-making. [employer] Other 11-24-2021 Evaluation note* Encounter Date Diagnosis Assessment Notes Treatment Notes Treatment Clinical Notes Jan, Left hip pain (ICD-10 - M25.552) Jan, Lumbar radiculopathy (ICD-10 - M54.16) Jerad presents with what I believe is a form of lumbar radiculopathy. At this juncture we have discussed the findings and diagnosis as well as personally reviewed appropriate imaging and performed interpretation of related testing and examination with the patient in office today. Our conservative care did not resolve her issues and she continues to have radicular pain. I would recommend MRI of the lumbar spine at this point referral to Dr. Roby Goodman for possible epidural injection. We will obtain an MRI which will help with treatment plans. We will send a referral to Dr Kim Goodman for further treatment options. A reill for Cyclobenzaprine was given today. Possible side effects to medication reveiwed with the patient, patint verbalized understanding and denies any concerns at this time. [employer] Other Evaluation + Plan note No data available for this section [facility] noteExtracted from: Title:ED Note Author:Elisa Sánchez DO Date :02/08/23 Back pain (M54.9: Dorsalgia, unspecified) Orders: methocarbamol, 500 mg = 1 tab(s), Oral, TID, X 3 day(s), # 9 tab(s), Refills(s) 0 morphine, 4 mg = 1 mL, Injection, IntraMuscular, Once, Stop date 02/07/23 19:57:00 EST, STAT, Start date 02/07/23 19:57:00 EST, 02/07/23 19:57:00 EST naproxen, 500 mg = 1 tab(s), Oral, BID, PRN for pain, # 20 tab(s), Refills(s) 0 orphenadrine, 60 mg = 2 mL, Injection, IntraMuscular, Once, Stop date 02/07/23 19:57:00 EST, STAT, Start date 02/07/23 19:57:00 EST, 02/07/23 19:57:00 EST predniSONE, 50 mg = 1 tab(s), Oral, Daily, X 5 day(s), # 5 tab(s), Refills(s) 0 predniSONE, 60 mg = 3 tab(s), Tab, Oral, Once, Stop date 02/07/23 19:57:00 EST, STAT, Start date 02/07/23 19:57:00 EST, 02/07/23 19:57:00 EST [facility] Future Appointments Appointment Date:06/13/2023 07:40:00 AM Scheduled Provider:Cheyanne Rincon Location:[facility] Appointment Type:FM New Patient - Adult [facility] Future Appointments Appointment Date:08/14/2023 03:15:00 PM Scheduled Provider:Domenic Sher DO Location:[facility] Appointment Type:Pain Management - Follow Up (FT) Future Scheduled Tests Laboratory* TSH With T4fr Reflex 07/17/23 * Urinalysis with Micro 07/17/23 * Lipid Panel 07/17/23 * Drug Screen Urine 07/17/23 Radiology* MA Mamm Screen w/CAD if perf and 3D Kenan 07/17/23 [facility] Evaluation + Plan note Future Appointments Appointment Date:11/13/2023 08:00:00 AM Scheduled Provider:Domenic Sher DO Location:[facility] Appointment Type:Pain Management - Follow Up (FT) Future Scheduled Tests Laboratory* TSH With T4fr Reflex 07/17/23 * Urinalysis with Micro 07/17/23 * Lipid Panel 07/17/23 * Drug Screen Urine 07/17/23 Radiology* MA Mamm Screen w/CAD if perf and 3D Kenan 07/17/23 [facility] evaluation noteNo InformationNort IndianStage Other Evaluation noteNo assessment information available [facility] Work Phone: Evaluation note* Diagnosis Onset Date Resolution Status Rectal bleeding acute [facility] Work Phone: Evaluation note* Diagnosis Lumbar disc disease- Primary Other and unspecified disc disorder of lumbar region [facility]* Diagnosis Encounter for screening mammogram for breast cancer- Primary Recurrent major depressive disorder, in full remission (CMS/HCC) Herniation of intervertebral disc between L4 and L5 Lumbar radiculopathy Thoracic or lumbosacral neuritis or radiculitis, unspecified Chronic hepatitis C without hepatic coma (CMS/HCC) Chronic, continuous use of opioids Controlled substance agreement signed documented in this encounter [facility] Work Phone: Evaluation note* Diagnosis Chronic low back pain, unspecified back pain laterality, unspecified whether sciatica present- Primary documented in this encounter [facility] Work Phone: Evaluation note* Diagnosis Chronic hepatitis C without hepatic coma (CMS/HCC) documented in this encounter [facility] Work Phone: Evaluation note* Diagnosis Chronic hepatitis C without hepatic coma (CMS/HCC) documented in this encounter [facility] Work Phone: Evaluation note* Diagnosis Continuous opioid dependence (CMS/HCC)- Primary Opioid type dependence, continuous abuse Chronic hepatitis C without hepatic coma (CMS/HCC) documented in this encounter [facility] Work Phone: Evaluation note* Diagnosis Chronic right-sided low back pain with right-sided sciatica- Primary [facility] Diagnosis Onset Date Resolution Status Arthritis of carpometacarpal (CMC) joint of right thum b acute Sprain of right thumb acute [facility] Work Phone: Evaluation note* Diagnosis CMC arthritis- Primary Right wrist pain Pain in joint, forearm documented in this encounter [facility] Work Phone: Evaluation note* Diagnosis Chronic back pain greater than 3 months duration- Primary Neuropathic pain documented in this encounter [facility] Work Phone: Evaluation note* Diagnosis Acute bilateral low back pain, unspecified whether sciatica present- Primary [facility] Diagnosis Chronic back pain, unspecified back location, unspecified back pain laterality- Primary documented in this encounter [facility] Work Phone: Evaluation note* Diagnosis Pain disorder associated with psychological and physical factors documented in this encounter [facility] Work Phone: Evaluation note* Diagnosis Low back pain without sciatica, unspecified back pain laterality, unspecified chronicity- Primary [facility] Diagnosis Chronic back pain greater than 3 months duration- Primary Chronic back pain greater than 3 months duration Neuropathic pain Continuous opioid dependence (Multi) Opioid type dependence, continuous abuse Neuropathic pain documented in this encounter [facility] Work Phone: Evaluation note* Diagnosis Chronic back pain greater than 3 months duration- Primary Neuropathic pain documented in this encounter [facility] Work Phone: Evaluation note* Diagnosis Strain of lumbar region, initial encounter- Primary documented in this encounter [facility] general Narrative - Reported* Type Description Date Medical History depression/ anxiety Medical History endometrosis Medical History DUB Medical History menorrhagia Medical History irregular menses Medical History migraine Medical History Hx cocaine and marijuana abuse - last used 2009 Surgical History laparoscopies x8 for endometros is Surgical History tubal ligation 2006 Surgical History tubes in ears x4 Surgical History tonsils & adneoids Surgical History TANIKA, RSO 2010 [employer] Other History general Narrative - Reported* Type Description Date Medical History depression/ anxiety Medical History endometrosis Medical History DUB Medical History menorrhagia Medical History irregular menses Medical History migraine Medical History Hx cocaine and marijuana abuse - last used 2009 Surgical History laparoscopies x8 for endometros is Surgical History tubal ligation 2006 Surgical History tubes in ears x4 Surgical History tonsils & adneoids Surgical History TANIKA, RSO 2010 Hospitalization History see surg Hx [facility] [employer] Other Hospital Discharge instructions No data available for this section [facility] Additional Instructions Return for new or worsening symptoms [facility] Hospital Discharge instructions Additional Instructions Take Bentyl and simethicone as prescribed for mild to moderate pain. Take Percocet as needed for severe pain. Increase your intake of fluids. Follow-up with a quill machine operator listed below for ongoing evaluation possible colonoscopy regarding your lower GI bleeding. Return to emergency department if you develop any fevers chills or intractable nausea vomiting, severe worsening bleeding, shortness of breath fatigue with bleeding. Follow-up with the PCP for reevaluation in 3 to 5 days days.[facility] Work Phone: Hospital Discharge instructions Additional Instructions Take the Bentyl as needed for abdominal cramping pain, use Zofran for nausea, start taking Carafate as well Call the GI doctor to see if he can be seen sooner Return for worsening abdominal pain or bleeding, fevers, continued vomiting, [facility]ness[facility] Work Phone: Hospital Discharge instructions Additional Instructions [facility] Work Phone: Hospital Discharge instructions Additional Instructions Take the prednisone for 4 more days starting tomorrow After prednisone completed can take the ketorolac every 6 hours as needed for pain take with food You can take the cyclobenzaprine muscle relaxer 3 times a day as needed may make you drowsy May use ice warm moist heat and gentle stretching May use topical medicine such as [employer] Beng[place] or lidocaine patches Follow-up with your family doctor for recheck Return to the ER for worsening pain loss of bladder bowel control weakness gets in your legs high fever or any other [facility] Work Phone: Hospital Discharge instructions Additional Instructions Take the Medrol Dosepak as prescribed to completed 1 oxycodone every 6 hours as needed for pain Continue the muscle relaxers you have at home Ice warm moist heat whichever helps the best Follow-up with the family doctor Return to the ER for worsening pain weakness in the legs loss of bladder bowel control high fever or any other concernsUniversity [facility]als [facility] Work Phone: Hospital Discharge instructions Additional Instructions Take 1 oxycodone every 6 hours for severe pain Continue your other medications Follow-up with the neurosurgeon and physical therapy Return to the ER for more severe pain high fever weakness in your legs loss of bladder bowel control or any other concernsUniversity [facility] Work Phone: Hospital Discharge instructions Additional Instructions Take the oxycodone as prescribed to completed Follow-up with your doctors Return to the ER for worsening pain high fever weakness in your legs loss of bladder bowel control or any other concernsUniversity [facility]als [facility] Work Phone: hospital Discharge instructions Additional Instructions Follow-up pain management as discussed Take Relafen if needed for pain Gentle range of motion Return here if any problems persist or worsen including loss of bowel bladder control, fevers, chills, numbness, tingling or other concernsUniversity Hospitals [facility] Work Phone: hospital Discharge instructions Additional Instructions Take the oxycodone every 6 hours as needed for severe pain Take the cyclobenzaprine 3 times a day as needed for pain Take the Medrol Dosepak as prescribed to completed Follow-up as scheduled with neurology and getting your MRI Return to the ER for worsening pain weakness in your legs loss of bladder bowel control high fever or any other concernsUniversity Hospitals Portage [facility] Center Work Phone: Hospital Discharge instructions Additional Instructions We know that you have arthritis in your back causing some nerve impingement. This relates directly to your symptoms. The MRI is to make sure there is no herniated disc or other problem. This will help us figure out whether surgery might be a solution or whether nonsurgical treatments are better. Have the tests done and follow-up with your doctor. I have prescribed you pain medicine for the next several days.[facility] Work Phone: hospital Discharge instructions Additional Instructions Take 1 oxycodone every 6 hours for severe pain May apply ice warm moist heat to sore areas Gentle stretching Follow-up with your family doctorUniversity [facility]als [facility] Work Phone: Hospital Discharge instructions Additional Instructions Avoid heavy lifting Take your antibiotic as instructed until gone for your UTI Is important that you call Dr. Meza and Dr. Rivero's office both tomorrow to let them know of your symptoms and discuss treatment plan Return here if any problems persist or worsen*[facility] Work Phone: Hospital Discharge instructions Additional Instructions Take the dexamethasone once a day for 7 days Continue your other medication May use ice warm moist heat Follow-up with pain management and neurosurgery Return to the ER for worsening symptoms fever more severe pain or any other concernsUniversity Hospitals [facility] Center Work Phone: Hospital Discharge instructions Additional Instructions On oxycodone every 6 hours as needed for pain Ice warm moist heat Continue your other medications Follow-up with your doctors as scheduled Return to the ER worsening pain high fever weakness in the legs loss of bladder bowel control or any other concernsUniversity Hospitals [facility] Work Phone: Hospital Discharge instructions Additional Instructions Continue cyclobenzaprine 3 times a day as needed Oxycodone every 6 hours as needed Follow-up with the specialist as scheduled Return to the ER for leg weakness loss of bladder bowel control high fever or any other concernsUniversity Hospitals [facility] Center Work Phone: Hospital Discharge instructions Additional Instructions 1. Apply moist heat to affected area 2. Avoid lifting, pushing or pulling more than 10 pounds 3. Keep appointment with neurosurgery/pain management as scheduled in March 28. May apply OTC Lidocaine patches to affected area to help with painUniversity Hospitals [facility] Work Phone: Hospital Discharge instructions Additional Instructions Avoid lifting, pushing, pulling continue to try to reach neurosurgeonUniversity Hospitals [facility] Work Phone: Hospital Discharge instructions Additional Instructions Continue your other medication Follow-up with your providers Return to the ER for worsening back pain high fever weakness in your legs loss of bladder bowel control or any other concernsUniversity Hospitals [facility] Center Work Phone: Hospital Discharge instructions Additional Instructions Follow-up with Ortho as scheduled Take Percocet as needed for pain, do not drive, drink, operate heavy machinery while takingUniversity Hospitals [facility] Center Work Phone: Hospital Discharge instructions* Attachments The following attachments cannot be sent through Care Everywhere. * Managing acute pain at home (Malaysian) [facility] Discharge instructions Additional Instructions Continue your regular medication Follow-up with your family doctor Return to the ER for worsening pain weakness in your legs loss of bladder bowel control high fever or any other concernsUniversity Hospitals [facility] Work Phone: Hospital Discharge instructions Additional Instructions Continue Flexeril for muscle spasms at home Continue oxycodone as prescribed at home Follow-up with pain management Rest Apply ice Return here if any problems persist or worsenUniversity Hospitals [facility] Center Work Phone: Hospital Discharge instructions* Attachments The following attachments cannot be sent through Care Everywhere. * Back: Strain (Malaysian) [facility] No data available for this section [facility] Reason for referral (narrative)* Consultation (Routine) - Authorized Specialty Diagnoses / Procedures Referred By Michi alvarez Referred To Contact Primary Care Procedures Follow Up In Primary Care - Established Antonio Husain PA-C [address] [place] [address] [place] [address] Referral ID Status Reason Start Date Expiration Date V isits Requested Visits Authorized [id number] Authorized 01/15/2023 01/15/2024 1 1 * Consultation (Routine) - Pending Review Specialty Diagnoses / Procedures Referred By Michi alvarez Referred To Contact Hepatology Diagnoses Chronic hepatitis C without hepatic coma (CMS/HCC) Antonio Husain PA-C [address] [facility] [place] [address] Referral ID Status Reason Start Date Expiration Date Visits Requested Visits Authorized [id number] Pending Review Specialty Services Required 3 01/15/2024 1 1 * Imaging (Routine) - Pending Review Specialty Diagnoses / Procedures Referred By Contac t Referred To Contact Radiology Diagnoses Chronic hepatitis C without hepatic coma (CMS/HCC) Procedures US abdomen limited liver Antonio Husain PA-C [address] [facility] [place] [address] Referral ID Status Reason Start Date Expiration Date Visits Requested Visits Authorized [id number] Pending Review Perform Procedure 3 01/15/2024 1 1 * Imaging (Routine) - Authorized Specialty Diagnoses / Procedures Referred By Contac t Referred To Contact Radiology Diagnoses Encounter for screening mammogram for breast cancer Procedures BI mammo bilateral screening tomosynthesis Antonio Husain PA-C [address] [facility] [place] [address] Referral ID Status Reason Start Date Expiration Date Visits Requested Visits Authorized [id number] Authorized Perform Procedure 3 01/15/2024 1 1 * Medications - Pending Review Specialty Diagnoses / Procedures Referred By Contac t Referred To Contact Diagnoses Recurrent major depressive disorder, in full remission (CMS/HCC) Antonio Husain PA-C [address] [facility] [place] [address] Referral ID Status Reason Start Date Expiration Date V isits Requested Visits Authorized [id number] Pending Review 1 1 [facility] Work Phone: Reason for referral (narrative)* Consultation (Routine) - Pending Review Specialty Diagnoses / Procedures Referred By Contac t Referred To Contact Neurosurgery Diagnoses Chronic low back pain, unspecified back pain laterality, unspecified [place] [address] [address] Department of Neurosurgery/[place] [address] [place] [address] [address] Department [place] [address] Referral ID Status Reason Start Date Expiration Date Visits Requested Visits Authorized [id number] Pending Review Specialty Services Required 3 01/22/2024 1 1 * Imaging (Routine) - Authorized Specialty Diagnoses / Procedures Referred By Contac t Referred To Contact Radiology Diagnoses Chronic low back pain, unspecified back pain laterality, unspecified whether sciatica present Procedures XR lumbar spine 4+ [place] [address] [address] Department of Neurosurgery/[place] [address] Referral ID Status Reason Start Date Expiration Date Visits Requested Visits Authorized [id number] Authorized Perform Procedure 3 01/22/2024 1 1 [facility] Work Phone: Reason for referral (narrative)* Consultation (Routine) - Authorized Specialty Diagnoses / Procedures Referred By Contac t Referred To Contact Hepatology Diagnoses Chronic hepatitis C without hepatic coma (CMS/HCC) Procedures Follow [place] [address] [address] Department [place] [address] Referral ID Status Reason Start Date Expiration Date V isits Requested Visits Authorized [id number] Authorized 04/01/2023 03/31/2024 1 1 * Gastroenterology (Routine) - Pending Review Specialty Diagnoses / Procedures Referred By Contac t Referred To Contact Gastroenterology Diagnoses Chronic hepatitis C without hepatic coma (CMS/HCC) Procedures Liver Elastography (Fibrosc[place]) [place] [address] [place] [facility] Department [place] [address] Referral ID Status Reason Start Date Expiration Date V isits Requested Visits Authorized [id number] Pending Review 04/01/2023 03/31/2024 1 1 [facility] Work Phone: [employer] for referral (narrative)* Consultation (Routine) - Authorized Specialty Diagnoses / Procedures Referred By Contact Referred To Contact Psychology / Behavioral Health Diagnoses Chronic back pain greater than 3 months duration Neuropathic pain Chirag Oviedo, [place] [address] [place] [facility] Department [place] [address] Referral ID Status Reason Start Date Expiration Date Visits Requested Visits Authorized [id number] Authorized Specialty Services Required 06/05/2023 06/04/2024 1 1 Electronically signed by Chirag Oviedo 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[employer]ICA [employer]CHITECT at 06/05/2023 9:03 AM EDT [facility] Work Phone: Rebqyn for referral (narrative) , - bipolar- hx drug use, hep c, BHAVIK score high and PHQ9 - high Referred by: Ralph BEYER, Cheyanne [facility] Primary [facility] Reason for visit NarrativePain Medicine Referral Update [employer] Other Reason for Referral Specialty Diagnoses / Procedures Referred By Contact Referred To Contact Orthopaedic Surgery / Orthopedic Surgery Diagnoses [facility] arthritis Procedures Hand / UE Inj/Asp: R thumb [facility] Belkis Hernandez, DO [address] [facility], [address] [place] [address] Referral ID Status Reason Start Date Expiration Date V isits Requested Visits Authorized [id number] Pending Review 05/20/2023 05/19/2024 1 1 Specialty Diagnoses / Procedures Referred By Contac t Referred To Contact Radiology Diagnoses Right wrist pain Procedures XR wrist right 3+ views Belkis Hernandez, DO [address] [facility], [address] [place] [address] Referral ID Status Reason Start Date Expiration Date Visits Requested Visits Authorized [id number] Authorized Perform Procedure 05/20/2023 05/19/2024 1 1 Specialty Diagnoses / Procedures Referred By Contac t Referred To Contact Radiology Diagnoses Chronic hepatitis C without hepatic coma (CMS/HCC) Procedures US abdomen limited liver Antonio Husain PA-C [address] [place] [address] Referral ID Status Reason Start Date Expiration Date Visits Requested Visits Authorized [id number] Pending Review Perform Procedure 3 01/15/2024 1 1 Reason evaluate and treat Diagnosis 1 Other low back pain (M54.59) Referral Organization [facility] Referring Provider First Name Joe Referring Provider Last Name Derrick Referring Provider Specialty Neurologica l Surgery Referred Organization [facility] Referred Provider Domenic Sher Referred Address [address] [place], [place],[address] Referred Provider Specialty Pain Medicin e Referral Priority Routine General Notes Zoë Subramanian 023 02:17:44 PM >Received today and waiting for office notes to be locked before sending referral Reason EMG Bilat lower extr emities Diagnosis 1 Lumbosacral radiculo jose alejandro at L5 (M54.17) Referral Organization [facility] Referring Provider First Name Rose Marie Referring Provider Last Name Shepherd Referring Provider Specialty Nurse Pract itioner Referred Organization [facility] Referred Address [address] [place],[address] Referred Provider Specialty Neurology Referral Priority Routine Reason Evaluate and treat Diagnosis 1 DDD (degenerative di sc disease), lumbar (M51.36) Referral Organization [facility] Referring Provider First Name Rose Marie Referring Provider Last Name Joao Referring Provider Specialty Nurse Pract itioner Referred Organization [facility] Managemen t Referred Provider Glen Garza Referred Address [address] ,[place], [place],[address] Referred Provider Specialty Pain Medicin e Referral Priority Routine Reason discuss treatment op tions Diagnosis 1 Lumbar radiculopathy (M54.16) Referral Organization [facility] Referring Provider First Name Jd Referring Provider Last Name Kira Referring Provider Specialty Orthopedic Surgery Referred Organization [facility] Referred Provider Tami Goodman Thomas Referred Address [address] [place], [place],[address] Referred Provider Specialty Pain Medicin e Referral Priority Routine Chief Complaint and Reason for Visit Chief Complaint Headache,abd pain T84.84XA stomach pain sob, FINLEY, body aches, weak R74.8 rt side pain Chief Complaint stomach pain sob, FINLEY, body aches, weak R74.8 rt side pain Pain in left shoulder Chief Complaint R74.8 rt side pain Pain in left shoulder Mouth pain post teeth removal Chief Complaint rt side pain Pain in left shoulder Mouth pain post teeth removal Abd Pain Chief Complaint Pain in left shoulde r Mouth pain post teeth removal Abd Pain bleeding from rectum Chief Complaint Mouth pain post teet h removal Abd Pain bleeding from rectum rectal bleeding Chief Complaint Mouth pain post teet h removal Abd Pain bleeding from rectum rectal bleeding bleeding from colon Chief Complaint bleeding from colon abd pain, rectal bleed back pain Reason for Visit Rectal bleeding Chief Complaint back pain back pain Chief Complaint back pain back pain back pain-nki Chief Complaint back pain back pain back pain-nki M54.42 back pain-nki back pain low back pain Chief Complaint back pain back pain back pain-nki M54.42 back pain-nki back pain low back pain Back pain NKI back pain lower back pain Chief Complaint back pain back pain-nki M54.42 back pain-nki back pain low back pain Back pain NKI back pain lower back pain Lower back pain z78.0 back inj, fell down stairs 6--23 @ home back pain Chief Complaint back pain back pain-nki M54.42 back pain-nki back pain low back pain Back pain NKI back pain lower back pain Lower back pain z78.0 back inj, fell down stairs 6-20-23 @ home back pain Back Pain Chest pain Chief Complaint back pain back pain-nki M54.42 back pain-nki back pain low back pain Back pain NKI back pain lower back pain Lower back pain z78.0 back inj, fell down stairs -- @ home back pain Back Pain Chest pain back pain Chief Complaint back pain back pain-nki M54.42 back pain-nki back pain low back pain Back pain NKI back pain lower back pain Lower back pain z78.0 back inj, fell down stairs 09-11- @ home back pain Back Pain Chest pain back pain BACK PAIN Chief Complaint back pain back pain-nki M54.42 back pain-nki back pain low back pain Back pain NKI back pain lower back pain Lower back pain z78.0 back inj, fell down stairs 09-11- @ home back pain Back Pain Chest pain back pain BACK PAIN Back pain Chief Complaint back pain back pain-nki M54.42 back pain-nki back pain low back pain Back pain NKI back pain lower back pain Lower back pain z78.0 back inj, fell down stairs 09-11- @ home back pain Back Pain Chest pain back pain BACK PAIN Back pain med rxn lower back pain Back pain Chief Complaint back pain back pain-nki M54.42 back pain-nki back pain low back pain Back pain NKI back pain lower back pain Lower back pain z78.0 back inj, fell down stairs 09-11- @ home back pain Back Pain Chest pain back pain BACK PAIN Back pain med rxn lower back pain Back pain Lower back pain NKI back pain,nki Chief Complaint back pain back pain-nki M54.42 back pain-nki back pain low back pain Back pain NKI back pain lower back pain Lower back pain z78.0 back inj, fell down stairs 09-11- @ home back pain Back Pain Chest pain back pain BACK PAIN Back pain med rxn lower back pain Back pain Lower back pain NKI back pain,nki back pain/ left leg numbness Chief Complaint back pain-nki M54.42 back pain-nki back pain low back pain Back pain NKI back pain lower back pain Lower back pain z78.0 back inj, fell down stairs 09-11- @ home back pain Back Pain Chest pain back pain BACK PAIN Back pain med rxn lower back pain Back pain Lower back pain NKI back pain,nki back pain/ left leg numbness z78.0 Chief Complaint back pain-nki back pain low back pain Back pain NKI back pain lower back pain Lower back pain z78.0 back inj, fell down stairs 6--23 @ home back pain Back Pain Chest pain back pain BACK PAIN Back pain med rxn lower back pain Back pain Lower back pain NKI back pain,nki back pain/ left leg numbness z78.0 Back pain M70.62 Chief Complaint back pain-nki back pain low back pain Back pain NKI back pain lower back pain Lower back pain z78.0 back inj, fell down stairs 6-- @ home back pain Back Pain Chest pain back pain BACK PAIN Back pain med rxn lower back pain Back pain Lower back pain NKI back pain,nki back pain/ left leg numbness z78.0 Back pain M70.62 back pain lower back pain Chief Complaint low back pain Back pain NKI back pain lower back pain Lower back pain z78.0 back inj, fell down stairs -- @ home back pain Back Pain Chest pain back pain BACK PAIN Back pain med rxn lower back pain Back pain Lower back pain NKI back pain,nki back pain/ left leg numbness z78.0 Back pain M70.62 back pain lower back pain back pain fall,lower back pain Chief Complaint low back pain Back pain NKI back pain lower back pain Lower back pain z78.0 back inj, fell down stairs 6-- @ home back pain Back Pain Chest pain back pain BACK PAIN Back pain med rxn lower back pain Back pain Lower back pain NKI back pain,nki back pain/ left leg numbness z78.0 Back pain M70.62 back pain lower back pain back pain fall,lower back pain Fall Chief Complaint low back pain Back pain NKI back pain lower back pain Lower back pain z78.0 back inj, fell down stairs 6--23 @ home back pain Back Pain Chest pain back pain BACK PAIN Back pain med rxn lower back pain Back pain Lower back pain NKI back pain,nki back pain/ left leg numbness z78.0 Back pain M70.62 back pain lower back pain back pain fall,lower back pain Fall left leg /hip pain Chief Complaint Back pain NKI back pain lower back pain Lower back pain z78.0 back inj, fell down stairs 09-11- @ home back pain Back Pain Chest pain back pain BACK PAIN Back pain med rxn lower back pain Back pain Lower back pain NKI back pain,nki back pain/ left leg numbness z78.0 Back pain M70.62 back pain lower back pain back pain fall,lower back pain Fall left leg /hip pain Back Pain Chief Complaint Back pain NKI back pain lower back pain Lower back pain z78.0 back inj, fell down stairs 09-11- @ home back pain Back Pain Chest pain back pain BACK PAIN Back pain med rxn lower back pain Back pain Lower back pain NKI back pain,nki back pain/ left leg numbness z78.0 Back pain M70.62 back pain lower back pain back pain fall,lower back pain Fall left leg /hip pain Back Pain back pain Chief Complaint back pain Back Pain Chest pain back pain BACK PAIN Back pain med rxn lower back pain Back pain Lower back pain NKI back pain,nki back pain/ left leg numbness z78.0 Back pain M70.62 back pain lower back pain back pain fall,lower back pain Fall left leg /hip pain Back Pain back pain back pain back pain back pain, bilateral leg numbness Chief Complaint back pain Back Pain Chest pain back pain BACK PAIN Back pain med rxn lower back pain Back pain Lower back pain NKI back pain,nki back pain/ left leg numbness z78.0 Back pain M70.62 back pain lower back pain back pain fall,lower back pain Fall left leg /hip pain Back Pain back pain back pain back pain back pain, bilateral leg numbness dr. sent over Chief Complaint back pain Back Pain Chest pain back pain BACK PAIN Back pain med rxn lower back pain Back pain Lower back pain NKI back pain,nki back pain/ left leg numbness z78.0 Back pain M70.62 back pain lower back pain back pain fall,lower back pain Fall left leg /hip pain Back Pain back pain back pain back pain back pain, bilateral leg numbness dr. sent over Back Pain Chief Complaint back pain Back Pain Chest pain back pain BACK PAIN Back pain med rxn lower back pain Back pain Lower back pain NKI back pain,nki back pain/ left leg numbness z78.0 Back pain M70.62 back pain lower back pain back pain fall,lower back pain Fall left leg /hip pain Back Pain back pain back pain back pain back pain, bilateral leg numbness dr. sent over Back Pain left leg pain post epidural Chief Complaint Chest pain back pain BACK PAIN Back pain med rxn lower back pain Back pain Lower back pain NKI back pain,nki back pain/ left leg numbness z78.0 Back pain M70.62 back pain lower back pain back pain fall,lower back pain Fall left leg /hip pain Back Pain back pain back pain back pain back pain, bilateral leg numbness dr. sent over Back Pain left leg pain post epidural back pain/numbness Chief Complaint BACK PAIN Back pain med rxn lower back pain Back pain Lower back pain NKI back pain,nki back pain/ left leg numbness z78.0 Back pain M70.62 back pain lower back pain back pain fall,lower back pain Fall left leg /hip pain Back Pain back pain back pain back pain back pain, bilateral leg numbness dr. sent over Back Pain left leg pain post epidural back pain/numbness lower back pain, nki Chief Complaint lower back pain Back pain Lower back pain NKI back pain,nki back pain/ left leg numbness z78.0 Back pain M70.62 back pain lower back pain back pain fall,lower back pain Fall left leg /hip pain Back Pain back pain back pain back pain back pain, bilateral leg numbness dr. sent over Back Pain left leg pain post epidural back pain/numbness lower back pain, nki M54.17 lower back spasms back pain Chief Complaint Back pain Lower back pain NKI back pain,nki back pain/ left leg numbness z78.0 Back pain M70.62 back pain lower back pain back pain fall,lower back pain Fall left leg /hip pain Back Pain back pain back pain back pain back pain, bilateral leg numbness dr. sent over Back Pain left leg pain post epidural back pain/numbness lower back pain, nki M54.17 lower back spasms back pain back spasms Chief Complaint Lower back pain NKI back pain,nki back pain/ left leg numbness z78.0 Back pain M70.62 back pain lower back pain back pain fall,lower back pain Fall left leg /hip pain Back Pain back pain back pain back pain back pain, bilateral leg numbness dr. sent over Back Pain left leg pain post epidural back pain/numbness lower back pain, nki M54.17 lower back spasms back pain back spasms back pain Chief Complaint Lower back pain NKI back pain,nki back pain/ left leg numbness z78.0 Back pain M70.62 back pain lower back pain back pain fall,lower back pain Fall left leg /hip pain Back Pain back pain back pain back pain back pain, bilateral leg numbness dr. sent over Back Pain left leg pain post epidural back pain/numbness lower back pain, nki M54.17 lower back spasms back pain back spasms back pain back pain Chief Complaint back pain/ left leg numbness z78.0 Back pain M70.62 back pain lower back pain back pain fall,lower back pain Fall left leg /hip pain Back Pain back pain back pain back pain back pain, bilateral leg numbness dr. sent over Back Pain left leg pain post epidural back pain/numbness lower back pain, nki M54.17 lower back spasms back pain back spasms back pain back pain lower back pain Chief Complaint z78.0 Back pain M70.62 back pain lower back pain back pain fall,lower back pain Fall left leg /hip pain Back Pain back pain back pain back pain back pain, bilateral leg numbness dr. sent over Back Pain left leg pain post epidural back pain/numbness lower back pain, nki M54.17 lower back spasms back pain back spasms back pain back pain lower back pain back pain Chief Complaint M70.62 back pain lower back pain back pain fall,lower back pain Fall left leg /hip pain Back Pain back pain back pain back pain back pain, bilateral leg numbness dr. sent over Back Pain left leg pain post epidural back pain/numbness lower back pain, nki M54.17 lower back spasms back pain back spasms back pain back pain lower back pain back pain back pain Chief Complaint M70.62 back pain lower back pain back pain fall,lower back pain Fall left leg /hip pain Back Pain back pain back pain back pain back pain, bilateral leg numbness dr. sent over Back Pain left leg pain post epidural back pain/numbness lower back pain, nki M54.17 lower back spasms back pain back spasms back pain back pain lower back pain back pain back pain lower back pain Chief Complaint Back Pain back pain back pain back pain back pain, bilateral leg numbness dr. sent over Back Pain left leg pain post epidural back pain/numbness lower back pain, nki M54.17 lower back spasms back pain back spasms back pain back pain lower back pain back pain back pain lower back pain back pain lower back pain Chief Complaint sent over Back Pain left leg pain post epidural back pain/numbness lower back pain, nki M54.17 lower back spasms back pain back spasms back pain back pain lower back pain back pain back pain lower back pain back pain lower back pain back pain Chief Complaint back pain back spasms back pain back pain lower back pain back pain back pain lower back pain back pain lower back pain back pain back pain back pain Chief Complaint back pain lower back pain back pain back pain lower back pain back pain lower back pain back pain back pain back pain mva left side pain Chief Complaint lower back pain back pain lower back pain back pain back pain back pain mva left side pain back pain Chief Complaint lower back pain back pain back pain back pain mva left side pain back pain ER [facility] RIGHT WRIST FX WX Reason for Visit 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 Sprain of right thumb Chief Complaint lower back pain back pain back pain back pain mva left side pain back pain ER [facility] RIGHT WRIST FX WX rt thumb pain-recent fall Reason for Visit 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 Sprain of right thumb Chief Complaint back pain mva left side pain back pain ER [facility] RIGHT WRIST FX WX rt thumb pain-recent fall back pain rt side pain back pain Reason for Visit 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 Sprain of right thumb Chief Complaint mva left side pain back pain ER [facility] RIGHT WRIST FX WX rt thumb pain-recent fall back pain rt side pain back pain back pain Reason for Visit 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 Sprain of right thumb Chief Complaint back pain back pain back pain-recent surgery Advance Directives No Advanced Directives Records Found Advance Directive Response Recorded Date/ Time Advance Directives No January 11:56am Advance Directive Response Recorded Date/ Time Advance Directives No January 10:56am Advance Directive Response Recorded Date/ Time Advance Directives No April 3:47pm Advance Directive Response Recorded Date/ Time Advance Directives No April 4:47pm Date Activated Date Inactivated Comments 08/21/2023 6:35 AM Question Answer Comments Plan of Care: Code Status Discussion Not Compl eted Decision Maker: Provider Rationale: Patient condition does not warra nt discussion Date Activated Date Inactivated Comments 08/21/2023 6:35 AM Question Answer Comments Plan of Care: Code Status Discussion Not Compl eted Decision Maker: Provider Rationale: Patient condition does not warra nt discussion Latest Code Status on File Code Status Date Activated Date Inactivated Comments Full Code 01/31/2014 5:10 AM 01/31/2014 7:41 PM Summary Purpose Family History Relationship Condition Age at Onset Recorded Date/T kelechi grandparent Unknown Myocardial infarction Unknown grandparent Malignant neoplasm Unknown Unknown No Family History Records Found Additional Source Comments REASON FOR VISIT (unrecogniz ed section and content) Reason Comments Back Pain Reason Comments Establish Care Patient transferring Care form [place], [place], last seen by PCP 3 months ago.Colonoscopy done 04/2022 and bone density done 10/2022 at [facility], mammogram scheduled for 01-17-23 and Pap done over 5 years. Weight Loss Patient would like t o discuss weight loss options. Reason Comments Back Pain Patient presents wit h low back pain. Patient describes her pain as throbbing and constant. Specialty Diagnoses / Procedures Referred By Contac t Referred To Contact Radiology Diagnoses Chronic hepatitis C without hepatic coma (CMS/HCC) Procedures US abdomen limited liver Antonio Husain PA-C [address] [facility] [address] [facility] [address] Referral ID Status Reason Start Date Expiration Date Visits Requested Visits Authorized [id number] Pending Review Perform Procedure 3 01/15/2024 1 1 Reason Comments Hepatitis C New Patient Visit Specialty Diagnoses / Procedures Referred By Contac t Referred To Contact Neurosurgery Diagnoses Chronic low back pain, unspecified back pain laterality, unspecified [place] [id number] [address] Department of Neurosurgery/[place] [address] [place] [address] [address] Department [place] [address] Referral ID Status Reason Start Date Expiration Date Visits Requested Visits Authorized [id number] Pending Review Specialty Services Required 3 01/22/2024 1 1 Reason Comments Follow-up Rt Wrist Fx; Xrays T alicia Reason Comments Back Pain Disc L4-L5 Reason Comments Back Pain Patient to ED refere nce back pain. She has history of chronic back pain with bulging discs at L4 and L5. She is schedule electric stimulator in June. She recently returned to work and is having issues with her back. Specialty Diagnoses / Procedures Referred By Michi t Referred To Contact Diagnoses Chronic back pain greater than 3 months duration Neuropathic pain Chronic back pain greater than 3 months duration [M54.9, G89.29] Neuropathic pain [M79.2] Procedures PA PRQ IMPLTJ NSTIM ELECTRODE ARRAY EPIDURAL PA ELEC GARO IMPLT NPGT SMPL SP/PN NPGT PRGRMG Percutaneous Thoracic Spinal Cord [place] [address] [facility] Department [place] [address] [facility] [place] [address] [place] [address] Referral ID Status Reason Start Date Expiration Date Visits Re quested Visits Authorized [id number] 1 1 Reason Comments Follow-up Spinal cord stimulat or Care Teams (unrecognized sec tion and content) Team Status: Inactive Member Role Status Dates Services [facility] Primary Care Provider Active Berto Villasenor DO Emergency Provider Active Team Status: Inactive Member Role Status [facility] Services [facility] Primary Care Provider Active ELIZABETH DiazC Attending Provider Active Team Status: Inactive Member Role Status Dates Services [facility] Primary Care Provider Active Naricso Bennett PA-C Emergency Provider Active Team Status: Inactive Member Role Status Dates Services [facility] Primary Care Provider Active Dagoberto Romero DPM Attending Provider Active Team Status: Inactive Member Role Status Dates Services [facility] Primary Care Provider Active José Miguel Mcnamara DO Emergency Provider Active Team Status: Inactive Member Role Status Dates Services [facility] Primary Care Provider Active Vlad Martinez DO Emergency Provider Active Team Status: Active Member Role Status Dates Services [facility] Primary Care Provider Active Team Status: Inactive Member Role Status [facility] Services [facility] Primary Care Provider Active Susu Lamar PA-C Emergency Provider Active Team Status: Inactive Member Role Status Dates Services [facility] Primary Care Provider Active Dalton Ceja DO Emergency Provider Active Team Status: Inactive Member Role Status Dates Services [facility] Primary Care Provider Active Cameron Rene DO Emergency Provider Active Team Status: Inactive Member Role Status Dates Services [facility] Primary Care Provider Active Jorge Dan MD Emergency Provider Active Team Status: Inactive Member Role Status Dates Services [facility] Primary Care Provider Active Mary Beth Sloan , COLLECT ON DELIVERY CLERK-BC Emergency Provider Active Team Status: Inactive Member Role Status Dates Services [facility] Primary Care Provider Active Keke Skaggs MD Attending Provider Active Team Status: Inactive Member Role Status Dates Services [facility] Primary Care Provider Active Rena Belcher MD Emergency Provider Active Team Status: Inactive Member Role Status Dates Services [facility] Primary Care Provider Active Joshua Ferrell APRN Emergency Provider Active Team Status: Inactive Member Role Status Dates Services [facility] Primary Care Provider Active ELZBIETA Causey Attending Provider Active Team Status: Inactive Member Role Status Dates Services [facility] Primary Care Provider Active Joe Meza MD Attending Provider Active Team Status: Active Member Role Status Dates Services [facility] Primary Care Provider Active Glen Garza MD Attending Provider Active Team Status: Inactive Member Role Status Dates Services [facility] Primary Care Provider Active Glen Garza MD Attending Provider Active Team Status: Inactive Member Role Status Dates Services [facility] Primary Care Provider Active Deb Carmichael APRN Emergency Provider Active Team Status: Inactive Member Role Status Dates Services [facility] Primary Care Provider Active Sam Dowd PA-C Emergency Provider Active Team Status: Inactive Member Role Status Dates Services [facility] Primary Care Provider Active Avery Berger Jr, MD Emergency Provider Active Team Status: Active Member Role Status Dates PHYSICIAN NO FAMILY Primary Care Provider Active Team Status: Inactive Member Role Status Dates PHYSICIAN NO FAMILY Primary Care Provider Active Joshua Ferrell APRN Emergency Provider Active Neonatal Specialist Relationship Specialty Start Date End Date [place] [address] [phone] (Work) PCP - General 12/04/22 Team Status: Inactive Member Role Status Dates PHYSICIAN NO FAMILY Primary Care Provider Active Mary Beth Sloan , COLLECT ON DELIVERY CLERK-BC Emergency Provider Active Team Status: Inactive Member Role Status Dates PHYSICIAN NO FAMILY Primary Care Provider Active Glen Garza MD Attending Provider Active Team Status: Active Member Role Status Dates Estelle Veliz , 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 SUPERINTENDENT PRESSURE-C Primary Care Provider Act alexandre Team Status: Inactive Member Role Status Dates Estelle Veliz , 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 SUPERINTENDENT PRESSURE-C Primary Care Provider Act alexandre Rose Marie Shepherd SUPERINTENDENT PRESSURE-C Attending Provider Active Team Status: Inactive Member Role Status Dates Estelle Veliz , 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 SUPERINTENDENT PRESSURE-C Primary Care Provider Act alexandre Mary Beth Jazmine Sebastiengurpreet , COLLECT ON DELIVERY CLERK- Emergency Provider Active Team Status: Inactive Member Role Status Dates Estelle Veliz , 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 SUPERINTENDENT PRESSURE-C Primary Care Provider Act alexandre Joshua Ferrell , 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 Emergency Provider Active Team Status: Active Member Role Status Dates NON STAFF Primary Care Provider Active Team Status: Inactive Member Role Status Dates NON STAFF Primary Care Provider Active Vlad Martinez , Emergency Provider Active Team Status: Inactive Member Role Status Dates NON STAFF Primary Care Provider Active Kati Huerta APRN Emergency Provider Active Neonatal Specialist Relationship Specialty Start Date End Date Antonio Husain PA-C [address] [facility] Physician [place] [phone] PCP - General Internal Medicine 01/08/23 Neonatal Specialist Relationship Specialty Start Date End Date Antonio Husain PA-C [address] [facility] [place] [address] PCP - General Internal Medicine 01/08/23 Team Status: Inactive Member Role Status Dates PHYSICIAN NO FAMILY Primary Care Provider Active Kati Huerta APRN Emergency Provider Active Neonatal Specialist Relationship Specialty Start Date End Date Antonio Husain PA-C [address] [facility] [place] [address] PCP - General Internal Medicine 01/08/23 Neonatal Specialist Relationship Specialty Start Date End Date Antonio Husain PA-C [address] [facility] [place] [address] PCP - General Internal Medicine 01/08/23 Neonatal Specialist Relationship Specialty Start Date End Date Antonio Husain PA-C [address] [facility] [place] [address] PCP - General Internal Medicine 01/08/23 Team Status: Inactive Member Role Status Dates NON STAFF Primary Care Provider Active Start: January 12, 2023 End: January 12, 2023 Kati Huerta APRN Emergency Provider Active Start: January 12, 2023 End: January 12, 2023 Team Status: Inactive Member Role Status Dates PHYSICIAN NO FAMILY Primary Care Provider Active Start: January 23, 2023 End: January 23, 2023 Joshua Ferrell APRN Emergency Provider Active Start: January 23, 2023 End: January 23, 2023 Team Status: Inactive Member Role Status Dates PHYSICIAN NO FAMILY Primary Care Provider Active Start: January 27, 2023 End: January 27, 2023 Kati Huerta APRN Emergency Provider Active Start: January 27, 2023 End: January 27, 2023 Team Status: Inactive Member Role Status Dates PHYSICIAN NO FAMILY Primary Care Provider Active Start: February 02, 2023 End: February 02, 2023 Joshua Ferrell APRN Emergency Provider Active Start: February 02, 2023 End: February 02, 2023 Team Status: Inactive Member Role Status Dates PHYSICIAN NO FAMILY Primary Care Provider Active Start: February 04, 2023 End: February 04, 2023 Kati Huerta APRN Emergency Provider Active Start: February 04, 2023 End: February 04, 2023 Team Status: Inactive Member Role Status Dates PHYSICIAN NO FAMILY Primary Care Provider Active Start: February 08, 2023 End: February 08, 2023 YULIET Pineda- Emergency Provider Active Start: February 08, 2023 End: February 08, 2023 Team Status: Inactive Member Role Status Dates PHYSICIAN NO FAMILY Primary Care Provider Active Start: February 21, 2023 End: February 21, 2023 Joshua Ferrell APRN Emergency Provider Active Start: February 21, 2023 End: February 21, 2023 Team Status: Inactive Member Role Status Dates PHYSICIAN NO FAMILY Primary Care Provider Active Start: March 09, 2023 End: March 09, 2023 Mary Beth Sloan COLLECT ON DELIVERY CLERK- Emergency Provider Active Start: March 09, 2023 End: March 09, 2023 Team Status: Inactive Member Role Status Dates PHYSICIAN NO FAMILY Primary Care Provider Active Start: 2023 End: 2023 Joshua Ferrell APRN Emergency Provider Active Start: 2023 End: 2023 Team Status: Inactive Member Role Status Dates Joshua Ferrell APRN Emergency Provider Active Start: March 29, 2023 End: March 29, 2023 Services [facility] Primary Care Provider Active Start: March 29, 2023 End: March 29, 2023 Team Status: Inactive Member Role Status Dates Services [facility] Primary Care Provider Active Start: April 12, 2023 End: April 12, 2023 Joshua Ferrell APRN Emergency Provider Active Start: April 12, 2023 End: April 12, 2023 Neonatal Specialist Relationship Specialty Start Date End Date [place] [phone] (Work) PCP - General 12/04/22 Team Status: Inactive Member Role Status Dates Services [facility] Primary Care Provider Active Start: May 05, 2023 End: May 05, 2023 Kati Huerta APRN Emergency Provider Active Start: May 05, 2023 End: May 05, 2023 Team Status: Inactive Member Role Status Dates Services [facility] Primary Care Provider Active Start: May 15, 2023 End: May 15, 2023 Jd Malone DO Attending Provider Active S tart: May 15, 2023 End: May 15, 2023 Team Status: Inactive Member Role Status Dates Services [facility] Primary Care Provider Active Start: May 19, 2023 End: May 19, 2023 Laurita Giraldo APRN Emergency Provider Active Start: May 19, 2023 End: May 19, 2023 Neonatal Specialist Relationship Specialty Start Date End Date Antonio Husain PA-C [address] [facility] [place] [address] PCP - General Internal Medicine 01/08/23 Neonatal Specialist Relationship Specialty Start Date End Date [place] [phone] (Work) PCP - General 12/04/22 Neonatal Specialist Relationship Specialty Start Date End Date Slime Sherwood DO [address] [facility] [place] [address] PCP - General Internal Medicine 06/15/23 Team Status: Inactive Member Role Status Dates Services [facility] Primary Care Provider Active Start: May 25, 2023 End: May 25, 2023 Joshua Ferrell APRN Emergency Provider Active Start: May 25, 2023 End: May 25, 2023 Team Status: Inactive Member Role Status Dates Services [facility] Primary Care Provider Active Start: June 01, 2023 End: June 01, 2023 Deb Carmichael APRN Emergency Provider Active Start: June 01, 2023 End: June 01, 2023 Team Status: Inactive Member Role Status Dates Services [facility] Primary Care Provider Active Start: June 26, 2023 End: June 26, 2023 Vlad Martinez DO Emergency Provider Active St art: June 26, 2023 End: June 26, 2023 Team Status: Inactive Member Role Status Dates Services [facility] Primary Care Provider Active Start: July 04, 2023 End: July 04, 2023 Mary Beth Sloan [facility] Emergency Provider Active Start: July 04, 2023 End: July 04, 2023 Neonatal Specialist Relationship Specialty Start Date End Date Slime Sherwood DO [address] [facility] [place] [address] PCP - General Internal Medicine 06/15/23 Neonatal Specialist Relationship Specialty Start Date End Date [place] [phone] (Work) PCP - General 12/04/22 Neonatal Specialist Relationship Specialty Start Date End Date Generic Provider, No [place] [address] PCP - General Audio/Video Technician 08/02/23 Neonatal Specialist Relationship Specialty Start Date End Date Generic Provider, No Assigned [place] [address] PCP - General Audio/Video Technician 08/02/23 Team Status: Inactive Member Role Status Dates Services [facility] Primary Care Provider Active Start: September 08, 2023 End: September 08, 2023 Deb Carmichael APRN Emergency Provider Active Start: September 08, 2023 End: September 08, 2023 Goals (unrecognized section and content) Goals may be documented in a n alternate section INFORMATION SOURCE (unrecogn ized section and content) DATE CREATED AUTHOR 01/15/2022 [facility] DATE CREATED AUTHOR AUTHOR'S ORGANIZ ATION 11/08/2022 [facility] DATE CREATED AUTHOR AUTHOR'S ORGANIZ ATION 07/09/2023 [facility] DATE CREATED AUTHOR AUTHOR'S ORGANIZ ATION 08/12/2023 [facility] DATE CREATED AUTHOR AUTHOR'S ORGANIZ ATION 08/20/[address] [facility] DATE CREATED AUTHOR AUTHOR'S ORGANIZ ATION 08/29/2023 [facility] DATE CREATED AUTHOR AUTHOR'S ORGANIZ ATION 09/08/2023 [facility] DATE CREATED AUTHOR AUTHOR'S ORGANIZ ATION 09/12/2023 [facility] DATE CREATED AUTHOR AUTHOR'S ORGANIZ ATION 09/19/2023 [facility] DATE CREATED AUTHOR AUTHOR'S ORGANIZ ATION 09/20/2023 [facility] DATE CREATED AUTHOR AUTHOR'S ORGANIZ ATION 09/21/2023 [facility] Scheduled Active and Recently Administ ered Medications (unrecognized section and content) Medication Order 12/02/2022 12/03/2022 12/04/2022 diazePAM (VALIUM) tablet 5 mg (COMPLETED) 5 mg, Oral, NOW, 1 dose, On Sat12/04/22 at 2004 2006 (Given - Provid er: Zoey Dan RN) fentaNYL (PF) (SUBLIMAZE) injection solution 75 mcg (COMPLETED) 75 mcg, Subcutaneous, NOW, 1 dose, On Sat12/04/22 at 2004 2006 (Given - Provid er: Zoey Dan RN) PRN Medication Order 12/02/2022 12/03/2022 12/04/2022 ondansetron (ZOFRAN ODT) RAPID DISSOLVING tablet 4 mg 4 mg, Oral, EVERY 6 HOURS PRN, Starting on Sat12/04/22 at 1957, Until Discontinued, Nausea/Vomiting 2006 (Given - Provid er: Zoey Dan RN) Scheduled Medication Order 04/26/2023 04/27/2023 04/28/2023 acetaminophen (TYLENOL EXTRA STR) tablet 1,000 mg 1,000 mg, Oral, NOW, 1 dose, On 04/27/23 at 2320 2328 (Not Given - Provider: Laurita Baires RN - Reason: Refused - Comment: Liver disease per pt) ketorolac (TORADOL) injection 15 mg (COMPLETED) 15 mg, Intramuscular, NOW, 1 dose, On 04/27/23 at 2320 2327 (Given - Provider: Laurita Baires RN) Lidocaine (ASPERCREME) 4 % topical patch 2 Patch 2 Patch, Topical, DAILY (PATCH), First dose on 04/27/23 at 2315, Until Discontinued, Administer over 12 Hours 2329 (Patch Applied - Provider: Laurita Baires, DARSHAN) 1129 (Due: Patch Removed - Provider: Laurita Baires RN) methocarbamoL (ROBAXIN) tablet 1,000 mg (COMPLETED) 1,000 mg, Oral, NOW, 1 dose, On 04/27/23 at 2320 2328 (Given - Provider: Laurita Baires RN) Scheduled Medication Order 06/06/2023 06/07/2023 06/08/2023 fentaNYL (PF) (SUBLIMAZE) injection solution 50 mcg (COMPLETED) 50 mcg, Subcutaneous, NOW, 1 dose, On 06/08/23 at 1810 1808 (Given - Provid er: Munira Perez, DARSHAN) ondansetron (ZOFRAN ODT) RAPID DISSOLVING tablet 4 mg (COMPLETED) 4 mg, Oral, NOW, 1 dose, On 06/08/23 at 1810 1807 (Given - Provid er: Munira Perez RN) Scheduled Medication Order 06/13/2023 06/14/2023 06/15/2023 ketorolac (Toradol) injection 30 mg (COMPLETED) 30 mg, intramuscular, Once, On 06/15/23 at 1525, For 1 dose 1539 (Given - Provid er: Layla Schulz RN) orphenadrine (Norflex) injection 60 mg (COMPLETED) 60 mg, intramuscular, Once, On 06/15/23 at 1525, For 1 dose 1539 (Given - Provid er: Layla Schulz RN) Scheduled Medication Order 08/07/2023 08/08/2023 08/09/2023 acetaminophen (TYLENOL EXTRA STR) tablet 1,000 mg (COMPLETED) 1,000 mg, Oral, NOW, 1 dose, On Sat08/09/23 at 2225 2223 (Given - Provid er: Yarelis Finley RN) fentaNYL (PF) (SUBLIMAZE) injection solution 50 mcg (COMPLETED) 50 mcg, Subcutaneous, NOW, 1 dose, On Sat08/09/23 at 2315 2319 (Given - Provid er: Yarelis Finley RN) Lidocaine (ASPERCREME) 4 % topical patch 1 Patch 1 Patch, Topical, ONCE, 1 dose, On Sat08/09/23 at 2225, Administer over 12 Hours 2223 (Patch Applied - Provider: Yarelis Finley RN) methocarbamoL (ROBAXIN) tablet 1,000 mg (COMPLETED) 1,000 mg, Oral, NOW, 1 dose, On Sat08/09/23 at 2225 2223 (Given - Provid er: Yarelis Finley RN) Scheduled Medication Order 08/19/2023 08/20/2023 08/21/2023 lidocaine (Xylocaine) 10 mg/mL (1 %) injection 1 mg 1 mg (0.1 mL), subcutaneous, Once, On Sat08/21/23 at 1015, For 1 dose, Recovery (only), To be used for IV insertion ONLY 1015 (Due) oxygen (O2) therapy inhalation, Continuous - Inhalation, First dose on Sat08/21/23 at 1015, Recovery (only), Device: Nasal Cannula, Rate in liters per minute: Other, Custom Value: 1-6 LPM, Keep O2 Sat Above: 92% 1015 (Due)1999 (Due) Continuous Medication Order 08/19/2023 08/20/2023 08/21/2023 lactated Ringer's infusion 100 mL/hr, intravenous, Continuous, Starting on Sat08/21/23 at 1015, Recovery (only) 1015 (Due) PRN Medication Order 08/19/2023 08/20/2023 08/21/2023 bacitracin ointment (CANCELED) As needed, Starting on Sat08/21/23 at 0907, Intraprocedure 0907 (Given - Provid er: Elke Adams MD) bupivacaine PF (Marcaine) 0.25 % (2.5 mg/mL) 20 mL, lidocaine-epinephrine (Xylocaine W/EPI) 1 %-1:100,000 20 mL, sodium bicarbonate 6 mEq syringe (CANCELED) As needed, Starting on Sat08/21/23 at 0858, Intraprocedure 0858 (Canceled Entry - Provider: Elke Adams MD)0918 (Given - Provider: Elke Adams MD)0930 (Given - Provider: Elke Adams MD) droperidol (Inapsine) injection 0.625 mg 0.625 mg, intravenous, Once as needed, nausea/vomiting, second line, Starting on Sat08/21/23 at 0946, For 1 dose, Recovery (only), Monitor QTc while on therapy (2 lead monitoring) fentaNYL PF (Sublimaze) injection 12.5 mcg 12.5 mcg, intravenous, Every 5 min PRN, pain mild (1-3), first line, Starting on Sat08/21/23 at 0946, Recovery (only), Max total of 200 micrograms regardless of dose., If ordered PRN for pain, nurse is permitted to administer this medication for higher pain scores based on patient preference? Yes fentaNYL PF (Sublimaze) injection 25 mcg 25 mcg, intravenous, Every 5 min PRN, pain moderate (4-6), first line, Starting on Sat08/21/23 at 0946, Recovery (only), Max total of 200 micrograms regardless of dose., If ordered PRN for pain, nurse is permitted to administer this medication for higher pain scores based on patient preference? Yes fentaNYL PF (Sublimaze) injection 50 mcg 50 mcg, intravenous, Every 5 min PRN, pain severe (7-10), first line, Starting on Sat08/21/23 at 0946, Recovery (only), Max total of 200 micrograms regardless of dose., If ordered PRN for pain, nurse is permitted to administer this medication for higher pain scores based on patient preference? Yes ondansetron (Zofran) injection 4 mg 4 mg, intravenous, Once as needed, nausea/vomiting, first line, Starting on Sat08/21/23 at 0946, For 1 dose, Recovery (only), When administering via IV Push, administer over 3-5 minutes. sterile water injection (COMPLETED) Continuous PRN, Starting on Sat08/21/23 at 0859, Intraprocedure 0859 (New Bag - Prov ider: Elke Adams MD - Comment: used to find edidural space) Scheduled Medication Order 09/08/2023 09/09/2023 09/10/2023 cyclobenzaprine (FLEXERIL) tablet 10 mg (COMPLETED) 10 mg, Oral, ONCE, 1 dose, On Sat09/10/23 at 1445 1441 (Given - Provid er: Michelle Sweet RN) dexAMETHasone (DECADRON) tablet 10 mg (COMPLETED) 10 mg, Oral, ONCE, 1 dose, On Sat09/10/23 at 1445 1441 (Given - Provid er: Michelle Sweet RN) oxyCODONE-acetaminophen (PERCOCET) 5-325 MG per tablet 1 tablet (COMPLETED) 1 tablet, Oral, ONCE, 1 dose, On Sat09/10/23 at 1445, Maximum dose of acetaminophen is 4000 mg from all sources in 24 hours. 1441 (Given - Provid er: Michelle Sweet RN) Ordered Prescriptions (unrec ognized section and content) Prescription Sig Dispensed Refills Start Date End Da te cyclobenzaprine (FLEXERIL) 10 MG tablet Take 1 tablet by mouth 3 times daily as needed for Muscle spasms 21 tablet 0 09/10/2023 09/20/2023 ibuprofen (ADVIL;MOTRIN) 600 MG tablet Take 1 tablet by mouth 3 times daily as needed for Pain 30 tablet 0 09/10/2023 FOR RECORDS PERTAINING TO PATIENTS WHO ARE OR HAVE BEEN ENROLLED IN A CHEMICAL DEPENDENCY/SUBSTANCEABUSE PROGRAM, SOME INFORMATION MAY BE OMITTED. This clinical summary was aggregated from multiple sources. Caution should be exercised in using it in the provision of clinical care. This summary normalizes information from multiple sources, and as a consequence, information in this document may materially change the coding, format and clinical context of patient data. In addition, data may be omitted in some cases. CLINICAL DECISIONS SHOULD BE BASED ON THE PRIMARY CLINICAL RECORDS. [facility]. provides no warranty or guarantee of the accuracy or completeness of information in this document.
--- NOTE | 2023-09-21 15:12 | ED.BACK1 ---
HPI HPI - Back Pain/Injury General Chief Complaint: Back Pain/Injury Stated Complaint: LOWER BACK PAIN Time Seen by Provider: 09/21/23 14:53 Source: patient Mode of arrival: walk-in Limitations: no limitations History of Present Illness HPI Narrative: 48-year-old female presents for chronic back pain. She states she ran out of her pain medication and is scheduled to have a nerve stimulator placed the day after tomorrow in [place]. No new injury and no radiation or weakness or numbness. The pain is moderate to severe. Related Data Home Medications ?Medication ?Instructions ?Recorded ?Confirmed fluoxetine 60 mg tablet 60 mg PO DAILY 07/16/23 09/13/23 cyclobenzaprine 10 mg tablet mg 09/13/23 ibuprofen 800 mg tablet mg 09/13/23 Previous Rx's ?Medication ?Instructions ?Recorded methocarbamol 750 mg tablet 750 mg PO Q6H PRN pain #30 tabs 07/16/23 methylprednisolone 4 mg tablets in 4 mg PO DAILY #21 ea 09/04/23 a dose pack (Medrol (Ian)) oxycodone 5 mg capsule 5 mg PO Q6H PRN pain #10 caps 09/04/23 oxycodone 5 mg tablet 5 mg PO Q8H PRN pain 3 days #10 09/13/23 tabs oxycodone 5 mg tablet 5 mg PO Q6H PRN pain #6 tabs 09/21/23 Allergies Allergy/AdvReac Type Severity Reaction Status Date / Time nabumetone Allergy Mild Verified 09/13/23 16:25 hydrocodone Allergy Verified 09/13/23 16:22 ketorolac [From Toradol] Allergy Verified 09/13/23 16:22 Penicillins Allergy Verified 09/13/23 16:22 Opioid HPI Opioid Management Most Recent Opioid Data: Last Pain Scale 9 09/04/23 16:13 Review of Systems ROS Narrative A ten point review of systems is negative except as noted above. PFSH PFSH Surgical History (Updated 09/04/23 @ 15:39 by Michelle Marie) History of spinal surgery ?Z98.890 - Other specified postprocedural states (ICD-10) Social History Smoking status: Current every day smoker Exam Narrative Exam Narrative: Nurses note and vital signs reviewed and patient is not hypoxic. General: The patient appears well and in no apparent distress. Patient is resting comfortably on cart. Skin: Warm, dry, no pallor noted. There is no rash noted. Head: Normocephalic, atraumatic Eye: Normal conjunctiva, no drainage Ears, Nose, Mouth, and Throat: oral mucosa is moist. Nares patent. Cardiovascular: Regular Rate and Rhythm Respiratory: Patient is in no distress, no accessory muscle use, lungs are clear to auscultation, no wheezing, rales or rhonchi Back: No bruise or rash or focal area of tenderness GI: Soft and nontender Musculoskeletal: The patient has no evidence of calf tenderness, no pitting edema, symmetrical pulses noted bilaterally Neurological: A&O, normal speech Psychiatric: Cooperative Constitutional Vital Signs, click to edit/add: Last Vital Signs Temp 98.3 F 09/21/23 14:54 Pulse 83 09/21/23 14:54 Resp 22 H 09/21/23 14:54 BP 170/100 H 09/21/23 14:57 Pulse Ox 98 09/21/23 14:54 O2 Del Method Room Air 09/21/23 14:54 Course Vital Signs Vital signs: Vital Signs Temperature 98.3 F 09/21/23 14:54 Pulse Rate 83 09/21/23 14:54 Respiratory Rate 22 H 09/21/23 14:54 Pulse Oximetry 98 09/21/23 14:54 Oxygen Delivery Method Room Air 09/21/23 14:54 Temperature 98.3 F 09/21/23 14:54 Pulse Rate 83 09/21/23 14:54 Respiratory Rate 22 H 09/21/23 14:54 Blood Pressure 170/100 H 09/21/23 14:57 Pulse Oximetry 98 09/21/23 14:54 Oxygen Delivery Method Room Air 09/21/23 14:54 MDM - Back Pain/Injury MDM Narrative Medical decision making narrative: She was given IM Norflex and a prescription for 6 Percocet tablets. She has had numerous visits to this emergency department and I have informed her today that I would no longer be prescribing her narcotic pain medications for this chronic condition and that future prescriptions would need to come from her treating physicians with whom she is established. Treatment diagnosis and follow-up were discussed with the patient. Differential Diagnosis Differential diagnosis: Likely lumbar radiculopathy, sciatica and other (Muscle strain) Medical Records Attestation: I reviewed the patient's medical records. Discharge Plan Discharge Stand Alone Forms: Portal Instructions Chief Complaint: Back Pain/Injury Clinical Impression: Chronic back pain Patient Disposition: Home, Self-Care Time of Disposition Decision: 15:10 Condition: Good Mode of Transportation: Private Vehicle Prescriptions / Home Meds: New oxycodone 5 mg tablet 5 mg PO Q6H PRN (Reason: pain) Qty: 6 0RF No Action cyclobenzaprine 10 mg tablet ibuprofen 800 mg tablet oxycodone 5 mg tablet 5 mg PO Q8H PRN (Reason: pain) 3 Days Qty: 10 0RF fluoxetine 60 mg tablet 60 mg PO DAILY methocarbamol 750 mg tablet 750 mg PO Q6H PRN (Reason: pain) Qty: 30 0RF oxycodone 5 mg capsule 5 mg PO Q6H PRN (Reason: pain) Qty: 10 0RF methylprednisolone [Medrol (Ian)] 4 mg tablets,dose pack 4 mg PO DAILY Qty: 21 0RF Print Language: Nigerian Instructions: Chronic Back Pain (DC) Additional Instructions: Future pain medication will need to come from your treating physicians. Referrals: Physician,Non-Staff, MD [Primary Care Provider] - 1 week
[2023-09-21] MEDS: ORPHENADRINE 60 MG/ 2 ML VIAL IM (15:14)
== END 2023-09-21 15:22 | disposition home or self-care (01) ==
PROVIDERS: Emergency Provider Emergency Medicine
DX: M54.9 Dorsalgia, unspecified (principal); G89.29 Other chronic pain; F17.200 Nicotine dependence, unspecified, uncomplicated
CPT/HCPCS: 96372; 99284; J2360

== ENCOUNTER 2023-11-03 15:15 | Emergency (ER) | payer BC, OTHER, SELFPAY ==
[2023-11-03 15:23] VITALS: BP 158/90; PULSE 84; TEMP 36.6; O2SAT 98; BMI 44.6
--- OUTSIDE RECORDS SUMMARY | 2023-11-03 15:26 | XMS_ITS | CCD ---
Author Organization [facility] Inform ion [facility] Care Team Providers Care Lumber Sorter Machine Name Role Phone ROSHAN ESCOBEDO Seng Primary Care Physician Jd Malone Unavailable Avery Goodman Unavailable [facility] Primary Care Provider DO Vlad Martinez Emergency Provider [phone] MORGAN Romero Attending Provider DO José Miguel Mcnamara Emergency Provider GINGER Bennett Emergency Provider ELIZABETH Veliz Attending Provider DO Berto Villasenor Emergency Provider [facility] Primary Care Provider FAROOQ, DR MASTERSON Primary Care Unavailable JUAN TRUONG Admitting Unavailable JUAN TRUONG Attending Unavailable DR PROMISE MCKEON Consulting Unavailable JUAN TRUONG Consulting Unavailable ALMAS GRULLON Admitting Unavailable ALMAS GRULLON Attending Unavailable FAROOQ, DR MASTERSON Primary Care Unavailable JOON MOSLEY Consulting Unavailable LEILANI SOLOMON Consulting Unavailable [facility] Primary Care Provider GINGER Lamar Emergency Provider [phone] [facility] Services Primary Care Provider DO Berto Villasenor Emergency Provider ELIZABETH Veliz Attending Provider GINGER Lamar Emergency Provider DO Dalton Ceja Emergency Provider [facility] Primary Care Provider [phone] DO Cameron Rene Emergency Provider Unasandra guerrero [facility] Primary Care Provider [phone] DO Berto Villasenor Emergency Provider [phone] MD Jorge Dan Emergency Provider Keke Skaggs Unavailable [facility] Primary Care Provider [phone] MD Jorge Dan Emergency Provider [phone] MD Keke Skaggs Attending Provider [phone] Nathalia [facility] Mary Beth E Emergency Provider [facility] Primary Care Provider [phone] GINGER Bennett Emergency Provider [phone] Rose Marie Shepherd Unavailable ELIZABETH Veliz Attending Provider ELIZABETH Ferrell Emergency Provider MD Rena Belcher B Emergency Provider Glen Garza Unavailable NONE, XXXX Primary Care Physician Unavailab MD Jorge Samuel Emergency Provider [facility] Primary Care Provider [phone] Nathalia [facility] Mary Beth E Emergency Provider [phone] MD Joe Meza Attending Provider ELZBIETA Shepherd Attending Provider MD Glen Garza Attending Provider DO Vlad Martinez Emergency Provider ELIZABETH Carmichael Emergency Provider GINGER Dowd Emergency Provider MD Avery Berger Jr Emergency Provider [facility] Primary Care Provider GINGER Bennett Emergency Provider MD RASHAD RAMACHANDRAN Attending Unavaila david [facility] Primary Care Provider [phone] Nathalia [facility] Beth E Emergency Provider [phone] [facility] Primary Care Provider ELIZABETH Ferrell Emergency Provider [facility] Primary Care Provider Nathalia, [facility] Mary Beth E Emergency Provider NO FAMILY, PHYSICIAN Primary Care Provider Unava alvaro Bermeo MD, [facility] Primary Care Provider [phone] [facility] Primary Care Provider [phone] ELIZABETH Ferrell Emergency Provider ELZBIETA Shepherd Attending Provider [facility] Primary Care Provider [phone] Nath[place] [facility] Mary Beth E Emergency Provider MD Glen Garza Attending Provider [phone] [facility] Services Primary Care Provider [phone] GINGER Bennett Emergency Provider [phone] DO Vlad Martinez Emergency Provider [facility] Services Primary Care Provider ELIZABETH Ferrell Emergency Provider GINGER Bennett Emergency Provider [phone] ELIZABETH Veliz Primary Care Provider [phone] [facility] Primary Care Provider [phone] Joe Meza Unavailable [facility] Primary Care Provider Nathalia [facility] Mary Beth E Emergency Provider [phone] NON STAFF Primary Care Provider ELIZABETH Valentin Emergency Provider Antonio Husain PA-C Primary Care Provider [facility] Primary Care Provider [place]ath[place], [facility] Mary Beth E Emergency Provider ELIZABETH Ferrell Emergency Provider [phone] [facility] Primary Care Provider ELZBIETA Shepherd Attending Provider DO Vlad Martinez Emergency Provider [place], [facility] Mary Beth E Emergency Provider [phone] ELIZABETH Ferrell Emergency Provider GINGER Bennett Emergency Provider [phone] MD Glen aGrza Attending Provider NO FAMILY, PHYSICIAN Primary Care Provider Unava ilable ELIZABETH Veliz Primary Care Provider NON STAFF Primary Care Provider ELIZABETH Valentin Emergency Provider [facility] Primary Care Provider [phone] ELZBIETA Shepherd Attending Provider DO Vlda Martinez Emergency Provider [facility] Primary Care Provider ELIZABETH Ferrell Emergency Provider [place]ath[place], [facility] Mary Beth E Emergency Provider [phone] ELZBIETA Shepherd Attending Provider DO Vlad Martinez Emergency Provider NO FAMILY, PHYSICIAN Primary Care Provider Unava ilable Nathalia, [facility] Mary Beth E Emergency Provider [phone] MD Glen Garza Attending Provider [phone] ELIZABETH Ferrell Emergency Provider ANTONIO HUSAIN Primary Care Physician ELIZABETH Veliz Primary Care Provider ELIZABETH Ferrell Emergency Provider [place], [facility] Beth E Emergency Provider NO FAMILY, PHYSICIAN Primary Care Provider Unava ilable NON STAFF Primary Care Provider Unavailparag jazmine ELIZABETH Ferrell Emergency Provider [place], [facility] Mary Beth E Emergency Provider [facility] Primary Care Provider NO FAMILY, PHYSICIAN Primary Care Provider Unava ilable ELIZABETH Huerta Kati A Emergency Provider ELIZABETH Ferrell Emergency Provider [phone] Cheyanne Rosas Primary Care Physician NO FAMILY, PHYSICIAN Primary Care Provider Unava ilable [place], [facility] Mary Beth E Emergency Provider [phone] ELIZABETH Huerta Kati A Emergency Provider ELIZABETH Giraldo Emergency Provider [phone] [facility] Primary Care Provider ELIZABETH Ferrell Emergency Provider [facility] Primary Care Provider ELIZABETH Huerta Kati Seng Emergency Provider ELIZABETH Giraldo Emergency Provider ELIZABETH Carmichael Emergency Provider [phone] DO Vlad Martinez Emergency Provider [facility] Primary Care Provider ELIZABETH Ferrell Emergency Provider [place], [facility] Mary Beth E Emergency Provider ANTONIO HUSAIN Attending Unavailable ANTONIO HUSAIN Primary Care Unavailable JORI CAM Attending Unavailable ANTONIO HUSAIN Primary Care Unavailable BELKIS HERNANDEZ Attending Unavailable ANTONIO HUSAIN Primary Care Unavailable BELKIS HERNANDEZ Referring Unavailable NEWBILL, ANTONIO M Primary Care Unavailable DECLAN LEYVA Attending Unavailable SLIME SHERWOOD Primary Care Unavailable KEKE PAYNE Attending Unavailable ALLYSON GRIFFITHS Attending Unavailable SAL MENA Attending Unavailable ALLYSON GRIFFITHS Attending Unavailable Garry MILES, Dory Garcia Attending Unavaila ble Unavailable, Physician Primary Care Unavailab loretta GRAMAJO, Daysi Muñoz Attending Unavailable Generic Provider MD, No Assigned Pcp Primary Car e Provider Unavailable [facility] Primary Care Provider ELIZABETH Carmichael Emergency Provider Unavailable Primary Care Provider Unavailabl e [facility] Primary Care Provider [phone] MD Abby Ng Emergency Provider Ralph [employer] FIELD COACH, [place]yanne Primary Care Unavailable Raj Ayers Attending Unavailable Raj Ayers Admitting Unavailable Ralph [employer] FIELD COACH, Cheyanne Primary Care Unavailable Daryl Cullen Attending Unavailable Daryl Cullen Admitting Unavailable Peter Chavez Attending Unavailab Peter Michel Admitting Unavailab loretta Rosas [employer] FIELD COACH, Cheyanne Primary Care Unavailable NEWBILL, ANTONIO M Primary Care Unavailable GENERIC PROVIDER, NO ASSIGNED PCP Primary Care Unavailable NEWBILL, ANTONIO M Referring Unavailable NEWBILL, ANTONIO M Primary Care Unavailable GENERIC PROVIDER, NO ASSIGNED PCP Primary Care Unavailable GENERIC PROVIDER, NO ASSIGNED PCP Primary Care Unavailable MD Peter Veliz Emergency Provider Laurita Grialdo Attending Unavailable Laurita Giraldo Admitting Unavailable [facility] Services Primary Care Unavaila ble [facility] Primary Care Unavaila ble Vlad Martinez M Admitting Unavailable TupaFiorellaVlad M Attending Unavailable Vlad Martinez M Attending Unavailable NON STAFF Primary Care Unavailable Tupa, Vlad M Admitting Unavailable Kiepert, Kati A Admitting Unavailable Kiepert, Kati A Attending Unavailable NO FAMILY, PHYSICIAN Primary Care Unavailable Joshua Ferrell Attending Unavailable Joshua Ferrell Admitting Unavailable NO FAMILY, PHYSICIAN Primary Care Unavailable Kiepert, Kati A Admitting Unavailable Kiepert, Kati A Attending Unavailable NO FAMILY, PHYSICIAN Primary Care Unavailable Joshua Ferrell Admitting Unavailable Joshua Ferrell Attending Unavailable NO FAMILY, PHYSICIAN Primary Care Unavailable Mariaelena, Joshua Admitting Unavailable Mariaelena, Joshua Attending Unavailable [facility] Primary Care Unavaila ble [facility] Primary Care Unavaila ble Narciso Bennett Admitting Unavailable Narciso Bennett Attending Unavailable Mariaelena, Joshua Admitting Unavailable Mariaelena, Joshua Attending Unavailable [facility] Primary Care Unavaila ble [place], Mary Beth E Admitting Unavailable [place], Mary Beth E Attending Unavailable [facility] Primary Care Unavaila ble [facility] Primary Care Unavaila ble Vlad Martinez Attending Unavailable Vlad Martinez Admitting Unavailable Avery Berger Jr Attending Unavailable Avery Berger Jr Admitting Unavailable [facility] Primary Care Unavaila ble Deb Carmichael Attending Unavailable Deb Carmichael Admitting Unavailable [facility] Primary Care Unavaila ble Mariaelena, Joshua Admitting Unavailable Mariaelena, Joshua Attending Unavailable [facility], Services Primary Care Unavaila ble [place], Mary Beth E Attending Unavailable NO FAMILY, PHYSICIAN Primary Care Unavailable [place], Mary Beth E Admitting Unavailable [place], Mary Beth E Admitting Unavailable NO FAMILY, PHYSICIAN Primary Care Unavailable [place], Mary Beth E Attending Unavailable Mariaelena, Joshua Admitting Unavailable Mariaelena, Joshua Attending Unavailable NO FAMILY, PHYSICIAN Primary Care Unavailable Kati Huerta Admitting Unavailable Kati Huerta Attending Unavailable [facility] Primary Care Unavaila ble Abby Ng Attending Unavailable Abby Ng Admitting Unavailable [facility] Primary Care Unavaila ble [place], Mary Beth E Admitting Unavailable Estelle Veliz Primary Care Unavailable [place], Mary Beth E Attending Unavailable Mariaelena, Joshua Admitting Unavailable Mariaelena, Joshua Attending Unavailable NO FAMILY, PHYSICIAN Primary Care Unavailable Mariaelena, Joshua Admitting Unavailable Mariaelena, Joshua Attending Unavailable [facility] Primary Care Unavaila ble Mariaelena, Joshua Admitting Unavailable Mariaelena, Joshua Attending Unavailable [facility] Primary Care Unavaila ble [place], Mary Beth E Admitting Unavailable [place], [...] PHYSICIAN Primary Care Unavailable Kiepert, Kati A Admitting Unavailable Kiepert, Kati A Attending Unavailable NON STAFF Primary Care Unavailable [place], Mary Beth E Attending Unavailable [facility] Primary Care Unavaila ble [place], Mary Beth E Admitting Unavailable Peter Veliz Attending Unavailable Peetr Veliz Admitting Unavailable [facility] Primary Care Unavaila ble Deb Carmichael Attending Unavailable Deb Carmichael Admitting Unavailable [facility] Primary Care Unavaila ble [facility] Primary Care Unavaila ble Rose Marie Shepherd Attending Unavailable Rose Marie Shepherd Admitting Unavailable Jose Alfredo, Estelle Mayra Primary Care Unavailable Rose Marie Shepherd Attending Unavailable Rose Marie Shepherd Admitting Unavailable Glen Garza S Attending Unavailable Kayla, Glen S Admitting Unavailable [facility] Primary Care Unavaila ble Mariaelena, Joshua Attending Unavailable Mariaelena, Joshua Admitting Unavailable NO FAMILY, PHYSICIAN Primary Care Unavailable [facility], Services Primary Care Unavaila ble Rose Marie Shepherd Attending Unavailable Rose Marie Shepherd Admitting Unavailable Kayla, Glen S Attending Unavailable Kayla, Glen S Admitting Unavailable NO FAMILY, PHYSICIAN Primary Care Unavailable Mariaelena, Joshua Attending Unavailable Mariaelena, Joshua Admitting Unavailable Jose Alfredo, Estelle Mayra Primary Care Unavailable [place], Mary Beth E Admitting Unavailable Veliz, Estelle Mayra Primary Care Unavailable [place], Mary Beth E Attending Unavailable [place], Mary Beth E Admitting Unavailable [place], Mary Beth E Attending Unavailable [facility] Primary Care Unavaila ble [facility] Primary Care Unavaila ble Vlad Martinez Attending Unavailable Vlad Martinez Admitting Unavailable Mariaelena, Joshua Admitting Unavailable Mariaelena, Joshua Attending Unavailable NO FAMILY, PHYSICIAN Primary Care Unavailable [place], Mary Beth E Admitting Unavailable [place], Mary Beth E Attending Unavailable NO FAMILY, PHYSICIAN Primary Care Unavailable Mariaelena, Joshua Attending Unavailable Mariaelena, Joshua Admitting Unavailable NO FAMILY, PHYSICIAN Primary Care Unavailable ELKE ADAMS Attending Unavailable GENERIC PROVIDER, NO ASSIGNED PCP Primary Care Unavailable ELKE ADAMS Attending Unavailable GENERIC PROVIDER, NO ASSIGNED PCP Primary Care Unavailable Jorge Mcintosh Attending Unavailable Chandana Varela Attending Unavailable NONE, XXXX Referring Unavailable GINGER Shepherd Admitting Unavailabl e GINGER Shepherd Attending Unavailabl e Hajdeduard, Astrit H Attending Unavailable Nikhil Tubbs Attending Unavailable Arnaldo, Jorge Attending Unavailable Pedro Pablo Fletcher S. Attending Unavailable Nikhil Tubbs Attending Unavailable Nikhil Tubbs Attending Unavailable Hajdari, Astrit H Attending Unavailable Nikhil Tubbs MAdrien Attending Unavailable Hajdari, Astrit H Attending Unavailable Arnaldo, Jorge Attending Unavailable Hajdari, Astrit H Attending Unavailable Nikhil Tubbs Attending Unavailable Arnaldo, Jorge Attending Unavailable Dokken, DO Elisa Ellsworth Attending Unavailable Nikhil Tubbs Attending Unavailable Cheyanne Rosas Referring Unavailable Domenic Sher Attending Unavailable DO Domenic Sher Admitting Unavailabl e Arnaldo, Jorge Attending Unavailable Chance, Pedro Pablo S. Attending Unavailable Hajdari, Astrit H Attending Unavailable Arnaldo, Jorge Attending Unavailable Nikhil Tubbs Attending Unavailable Arnaldo, Jorge Attending Unavailable Hajdari, Astrit H Attending Unavailable Arnaldo, Jorge Attending Unavailable Dax Lira Attending Unavailable Joseph, [facility] Ashia M Attending Unavailable Joseph, [facility] Ashia M Attending Unavailable Nikhil Tubbs MAdrien Attending Unavailable Nikhil Tubbs Attending Unavailable Arnaldo, Jorge Attending Unavailable Nikhil Tubbs Attending Unavailable Nikhil Tubbs MAdrien Attending Unavailable Dokken, DO Mitchelln A Attending Unavailable Nikhil Tubbs MAdrien Attending Unavailable Hajdari, Astrit H Attending Unavailable Nikhil Tubbs MAdrien Attending Unavailable Dokken, DO Tateylinn A Attending Unavailable Dokken, Kaylinradha A Attending Unavailable Hajdari, Astrit H Attending Unavailable Hajdari, Astrit H Attending Unavailable Nikhil Tubbs MAdrien Attending Unavailable Hajdari, Astrit H Attending Unavailable Hajdari, Astrit H Attending Unavailable Nikhil Tubbs MAdrien Attending Unavailable Chance, Pedro Pablo S. Attending Unavailable Hajdari, Astrit H Attending Unavailable Hajdari, Astrit H Attending Unavailable Arnaldo, Jorge Attending Unavailable Arnaldo, Jorge Attending Unavailable Arnaldo, Jorge Attending Unavailable Nikhil Tubbs MAdrien Attending Unavailable Hajdari, Astrit H Attending Unavailable Arnaldo, Jorge Attending Unavailable Chance, Pedro Pablo S. Attending Unavailable Hajdari, Astrit H Attending Unavailable Sherron CHAUDHARI Attending Unavailable FARA, Sherron Alvarez Attending Unavailable Chance, Pedro Pablo S. Attending Unavailable Nikhil Tubbs Attending Unavailable Chance, Pedro Pablo S. Attending Unavailable Chance, Pedro Pablo S. Attending Unavailable Dokken, DO Kaylinn A Attending Unavailable Dokken, DO Kaylinn A Attending Unavailable Chance, Pedro Pablo S. Attending Unavailable Balbina Bryant Attending Unavailable Dorobert, DO Elisa A Attending Unavailable Cheyanne Rosas Attending Unavailable Jorge Mcintosh Attending Unavailable WICHO TUBBS Attending Unavailable TAD, BENJA Attending Unavailable JADIELOLACHIDI Nguyen Referring Unavailable NEWBILL, ANTONIO M Primary Care [...] PROVIDER, NO ASSIGNED PCP Primary Care Unavailable ZOEOLOCHIRAG PINO Attending Unavailab le GENERIC PROVIDER, NO ASSIGNED PCP Primary Care Unavailable SWEET, ELKE A Admitting Unavailable SWEET, ELKE A Attending Unavailable GENERIC PROVIDER, NO ASSIGNED PCP Primary Care Unavailable GENERIC PROVIDER, NO ASSIGNED PCP Primary Care Unavailable GENERIC PROVIDER, NO ASSIGNED PCP Primary Care Unavailable ABBY NG Referring Unavailable MAINE WELCH Attending Unavailable SWEET, ELKE A Admitting Unavailable SWEET, ELKE A Attending Unavailable CHIRAG OVIEDO Referring Unavailab le GENERIC PROVIDER, NO ASSIGNED PCP Primary Care Unavailable GENERIC PROVIDER, NO ASSIGNED PCP Primary Care Unavailable SWEET, ELKE A Admitting Unavailable SWEET, ELKE A Attending Unavailable JEFFREY STEINBERG Consulting Unavailable WICHO TUBBS Referring Unavailable GENERIC PROVIDER, NO ASSIGNED PCP Primary Care Unavailable SWEET, ELKE A Admitting Unavailable SWEET, ELKE A Attending Unavailable GILLIAN BELL Consulting Unavailable NEWBILL, ANTONIO M Primary Care Unavailable GHOLAMCHIDI Attending Unavailable EFE VELA Referring Unavailable NEWBILL, ANTONIO M Primary Care Unavailable NEWBILL, ANTONIO M Primary Care Unavailable Allergies Allergy Classification Reported Allergen(s) Allergy Type Date of Onset Reaction(s) Facility Acetaminophen / HYDROcodone (4 sources) Acetaminophen / HYDROcodone; Translations: [acetaminophen-hy drocodone] Drug Allergy 3 [facility] NSAIDs (4 sources) nabumetone; Translations: [nabumetone] Drug Allergy 3 Nausea/vomitin g, Rash [facility] Opioid Agonists (1 source) HYDROcodone Drug Allergy 3 Hives, Unknown [facility] Work Phone: Penicillins (antibiotic) (4 sources) Penicillin; Translations: [penicillin] Drug Allergy 3 Hives, Unknown [facility] (20 sources) Acetaminophen / HYDROcodone; Translations: [Acetaminophen / Hydrocodone] Drug Allergy Unknown, [facility] (20 sources) Diclofenac Drug Allergy 4 Unknown, [facility] (20 sources) HYDROcodone; Translations: [Hydrocodone] Drug Allergy 4 Hives, Unknown, Rash [facility] (20 sources) Penicillins; Translations: [PENICILLINS] Propensity to adverse reactions 2 Hives, Unknown [facility] (20 sources) Penicillin; Translations: [penicillin] Drug Allergy 2 Unknown, Hives [facility] (19 sources) Acetaminophen; Translations: [acetaminophen] Drug Allergy 2 Abdominal Pain, Hives, Unknown Reaction [facility] (20 sources) nabumetone; Translations: [nabumetone] Drug Allergy 3 Nausea/vomitin g, Rash [facility] (17 sources) Acetaminophen / HYDROcodone; Translations: [HYDROCODONE-ACET AMINOPHEN] Drug Allergy 3 [facility] (16 sources) Penicillin G; Translations: [PENICILLIN G] Drug Allergy 3 [facility] (1 source) Diclofenac Drug Allergy 4 [facility] Repository Medications Current Medications Medication Drug Class(es) Dates [...] tab(s), Refill(s) 0, [id number], 160, cm, 07/17/23 8:06:00 EDT, Height/Length [...] Discontinued 1 TAB PO Every 6 hours 02 24May 19, 2023 June 01, 2023 2:55pm Start: 12-24-2022 End: 01-12-2023 take 1 tablet by mouth every six hours Oxycodone-Acetaminophen Discontinued 1 T AB PO Q6H 02 24January 07, 2023 January 12, 2023 10:17am Start: [...] tablet Discontinued 1 TAB PO Q8H 7 2 September 28, 2022 October 02, 2022 7:03pm Start: 09-18-2022 End: 09-28-2022 take 1 tablet by mouth every six hours Oxycodone-Acetaminophen (Percocet) 5-325 mg tablet Discontinued 1 TAB PO Q6H 10 3 September 24, 2022 September 28, 2022 5:16pm Start: 09-05-2022 End: 09-11-2022 take 1 tablet by mouth every eight hours Oxycodone-Acetaminophen (Percocet) 5-325 mg tablet Discontinued 1 TAB PO Q8H 10 3 September 05, 2022 September 11, 2022 12:38pm Start: 08-26-2022 End: 09-01-2022 take 1 tablet by mouth every six hours Oxycodone-Acetaminophen Discontinued 1 T AB PO Q6H 10 3 August 26, 2022 September 01, 2022 2:59pm Start: 08-17-2022 End: 08-26-2022 take 1 tablet by mouth every four to six hours Oxycodone-Acetaminophen (Percocet) 5-325 mg tablet Discontinued 1 TAB PO EVERY 4-6 HOURS 12 August 17, 2022 August 26, 2022 3:39pm Start: 08-13-2022 End: 08-26-2022 take 1 tablet by mouth every eight hours Oxycodone-Acetaminophen (Percocet) 5-325 mg tablet Discontinued 1 TAB PO Q8H 10 3 August 13, 2022 August 26, 2022 3:39pm Start: 08-02-2022 End: 08-06-2022 take 1 tablet by mouth every six hours Oxycodone-Acetaminophen (Percocet) 5-325 mg tablet Discontinued 1 TAB PO Q6H 8 2 August 02, 2022 August 06, 2022 6:46pm [...] August 29, 2017 April 01, 2018 8:03pm [id number] 200 actuat albuterol 0.09 mg/actuat metered dose [...] 3 day(s), 12 cap(s), Refill(s) 0, [id number], 160, cm, 08/12/23 20:54:00 EDT, Height/Length Dosing, 114.7, kg, 08/12/23 20:54:00 EDT, Weight Dosing Start Date: 08/12/23 Stop Date: 08/15/23 Status: Ordered baclofen 5 mg oral tablet (12 sources) gamma-Aminobutyric Acid-ergic Agonist Start: 08-14-2023 End: 10-13-2023 take 1 tablet by mouth three times daily as needed for muscle spasms baclofen 5 mg oral tablet 5 mg = 1 tab(s), Oral, TID, take as needed for spasms, X 30 day(s), # 90 tab(s), Refills(s) 1, Pharmacy: [id number], 160, cm, 08/14/23 15:27:00 EDT, Height/Length [...] Starting on Sat08/21/23 at 1015, Recovery (only) cephalexin 500 mg oral capsule (20 sources) Cephalosporin Antibacterial Start: 09-25-2023 End: 10-02-2023 take 1 capsule by mouth every six hours Keflex 500 mg Cap 500 mg = 1 cap(s), Oral, q6hr, X 7 day(s), # 28 cap(s), Refills(s) 0, Pharmacy: [id number], 160, cm, 09/25/23 11:43:00 EDT, Height/Length Dosing, 115.3, kg, 09/25/23 11:43:00 EDT, Weight Dosing Start Date: 09/25/23 Stop Date: 10/02/23 Status: Ordered Start: 12-10-2022 End: 01-04-2023 take 500 mg by mouth every eight hours Cephalexin Discontinued 500 MG PO Q8H 21 December 10, 2022 12:00am January 04, 2023 3:19pm Start: 08-29-2017 End: 04-01-2018 take 1 capsule by mouth every six hours Cephalexin (Keflex) 500 mg capsule Discontinued 500 MG PO Q6H 40 August 29, 2017 12:00am April 01, 2018 8:03pm chlorhexidine gluconate 1.2 mg/ml mouthwash (19 sources) [...] oral tablet (20 sources) Muscle Relaxant Start: 09-21-2023 take 1 tablet by mouth three times daily as needed for muscle spasms cyclobenzaprine 10 mg Tab 10 mg = 1 tab(s), Oral, TID, PRN for spasm, # 30 tab(s), Refills(s) 0, Pharmacy: [facility]/pharmacy #[id number], 160, cm, 09/21/23 11:20:00 EDT, Height/Length Dosing, 115.3, kg, 09/21/23 11:20:00 EDT, Weight Dosing Start Date: 09/21/23 Status: Ordered Start: 09-10-2023 End: 09-10-2023 cyclobenzaprine (FLEXERIL) t ablet 10 mg Start: 07-17-2023 End: 09-20-2023 take 1 tablet by mouth three times daily as needed for muscle spasms cyclobenzaprine 10 mg Tab 10 mg = 1 tab(s), Oral, TID, PRN for spasm, # 20 tab(s), Refills(s) 0, Pharmacy: [facility]/pharmacy #[id number], 160, cm, 08/15/23 22:27:00 EDT, Height/Length [...] Start: 08-21-2022 take 1 tablet by wei th every [...] wei th every eight hours as needed Cyclobenzaprine HCl 5 MG 1 tablet Orally every 8 hours as needed for 30 day(s) Dec, Active Dexamethasone (20 sources) Corticosteroid Start: 09-10-2023 End: 09-10-2023 dexAMETHasone (DECADRON) tab let 10 mg Start: 12-11-2022 End: 01-04-2023 take 6 mg by mouth once daily Dexamethasone Discontinu ed 6 MG PO Daily December 11, 2022 12:00am January 04, 2023 3:20pm diclofenac sodium 0.03 mg/mg topical gel (20 [...] cramping, # 12 cap(s), Refills(s) 0, Pharmacy: [facility]/pharmacy #[id number], 160, cm, 06/22/23 14:24:00 EDT, Height/Length [...] Dicyclomine Discontinued 10 MG PO Twice daily 08 25March 14, 2022 8:45pm March 29, 2022 2:25pm diflunisal 500 mg oral tablet (11 sources) Nonsteroidal Anti-inflammatory Drug Start: 09-02-2023 take 1 tablet by mouth every twelve hours diflunisal 500 mg Tab 500 mg = 1 tab(s), Oral, q12hr, # 20 tab(s), Refills(s) 0, Pharmacy: [facility]/pharmacy #[id number], 160, cm, 09/02/23 18:11:00 EDT, Height/Length Dosing, 115.5, kg, 09/02/23 18:11:00 EDT, Weight Dosing Start Date: 09/02/23 Status: Ordered docusate sodium 50 mg / sennosides, [facility] 8.6 mg oral tablet (2 sources) Start: [...] Daily, # 90 tab(s), Refills(s) 1, Pharmacy: [facility]/pharmacy #[id number], 160, cm, 07/17/23 8:06:00 EDT, Height/Length [...] PO Daily June 02, 2021 1:00am Mavyret (20 sources) Start: 06-03-2023 take 3 tablets by mo alh once daily Mavyret 3 tab(s), Oral, Daily, [...] TID, # 30 tab(s), Refills(s) 0, Pharmacy: [facility]/pharmacy #[id number], 160, cm, 07/17/23 8:06:00 EDT, Height/Length Dosing, 116.8, kg, 07/17/23 8:06:00 EDT, Weight Dosing Start Date: 07/17/23 Status: Ordered Start: 06-27-2023 take 1 tablet by wei th every six hours ibuprofen 600 mg Tab 600 mg = 1 tab(s), Oral, q6hr, Pt is to start this after she has completed the course of prednisone, # 40 tab(s), Refills(s) 0, Pharmacy: [facility]/pharmacy #[id number], 160, cm, 06/27/23 11:54:00 EDT, Height/Length [...] 01, 2017 1:00am August 29, 2017 2:32pm ketoconazole 20 mg/ml topical cream (2 sources) Azole Antifungal Start: 10-26-2023 End: 11-23-2023 ketoconazole Top 2% Crm 1 kennedi, Topical, BID for 28 day(s), 60 gm, Refill(s) 0, [facility] #[id number], 160, cm, 10/26/23 2:47:00 EDT, Height/Length Dosing, 116.7, kg, 10/26/23 2:47:00 EDT, Weight Dosing Start Date: 10/26/23 Stop Date: 11/23/23 Status: Ordered lidocaine 0.05 mg/mg medicated patch (20 sources) Antiarrhythmic, Amide Local Anesthetic Start: 09-02-2023 Lidoderm 5% Patch 1 patch(es), Topical, Daily, 7 patch(es), Refill(s) 0, apply 12 hours on and 12 hours off daily, [facility]/pharmacy #[id number], 160, cm, 09/02/23 18:11:00 EDT, Height/Length [...] hours on and 12 hours off daily, [facility]/pharmacy #[id number], 160, cm, 01/12/23 20:29:00 EDT, Height/Length Dosing, 114.3, kg, 01/12/23 20:29:00 EDT, Weight Dosing Start Date: 01/12/23 Status: Ordered Start: 08-02-2022 End: 10-16-2022 apply 1 dose topically every twenty-four hours Lidocaine Discontinued 1 PATCH TOPICAL Q24H 15 15 August 02, 2022 12:00am October 16, [...] day(s), # 21 tab(s), Refills(s) 0, Pharmacy: [facility]/pharmacy #[id number], 160, cm, 09/02/23 18:11:00 EDT, Height/Length [...] day(s), # 112 tab(s), Refills(s) 0, Pharmacy: [facility]/pharmacy #[id number], 160, cm, 08/05/23 20:18:00 EDT, Height/Length Dosing, 114.7, kg, 08/05/23 20:18:00 EDT, Weight Dosing Start Date: 08/05/23 Stop Date: 08/19/23 Status: Ordered Start: 07-26-2023 End: 08-02-2023 take 1 tablet by mouth three times daily Robaxin-750 oral tablet 750 mg = 1 tab(s), Oral, TID, X 7 day(s), # 21 tab(s), Refills(s) 0, Pharmacy: [facility]/pharmacy #[id number], 160, cm, 07/26/23 11:12:00 EDT, Height/Length Dosing, 116.8, kg, 07/26/23 11:12:00 EDT, Weight Dosing Start Date: 07/26/23 Stop Date: 08/02/23 Status: Ordered Start: 06-15-2023 End: 06-22-2023 take 1 tablet by mouth three times daily Robaxin-750 oral tablet 1,500 mg = 2 tab(s), Oral, TID, X 7 day(s), # 42 tab(s), Refills(s) 0, Pharmacy: [facility]/pharmacy #[id number], 160, cm, 06/15/23 18:08:00 EDT, Height/Length Dosing, 118.5, kg, 06/15/23 18:08:00 EDT, Weight Dosing Start Date: 06/15/23 Stop Date: 06/22/23 Status: Ordered Start: 06-11-2023 End: 06-14-2023 take 1 tablet by mouth three times daily Robaxin 500 mg Tab 500 mg = 1 tab(s), Oral, TID, X 3 day(s), # 9 tab(s), Refills(s) 0, Pharmacy: [facility]/pharmacy #[id number], 160, cm, 06/11/23 19:00:00 EDT, Height/Length [...] day(s), # 9 tab(s), Refills(s) 0, Pharmacy: [facility]/pharmacy #[id number], 160, cm, 04/10/23 22:09:00 EST, Height/Length Dosing, 114.5, kg, 04/10/23 22:09:00 EST, Weight Dosing Start Date: 04/10/23 Stop Date: 04/13/23 Status: Ordered Start: 04-02-2023 End: 04-05-2023 take 1 tablet by mouth three times daily Robaxin 500 mg Tab 500 mg = 1 tab(s), Oral, TID, X 3 day(s), # 9 tab(s), Refills(s) 0, Pharmacy: [facility]/pharmacy #[id number], 160, cm, 04/02/23 21:48:00 EST, Height/Length [...] day(s), # 56 tab(s), Refills(s) 0, Pharmacy: [facility]/pharmacy #[id number], 160, cm, 12/07/22 16:52:00 EDT, Height/Length [...] day(s), # 21 tab(s), Refills(s) 0, Pharmacy: [facility]/pharmacy #[id number], 160, cm, 08/30/23 18:16:00 EDT, Height/Length Dosing, 115.5, kg, 08/30/23 18:16:00 EDT, Weight Dosing Start Date: 08/30/23 Stop Date: 09/05/23 Status: Ordered Start: 04-10-2023 End: 04-16-2023 Medrol Dosepack 4 mg Tab = 1 packet(s), Oral, As Directed, as directed on package labeling, X 6 day(s), # 21 tab(s), Refills(s) 0, Pharmacy: [facility]/pharmacy #[id number], 160, cm, 04/10/23 22:09:00 EST, Height/Length Dosing, 114.5, kg, 04/10/23 22:09:00 EST, Weight Dosing Start Date: 04/10/23 Stop Date: 04/16/23 Status: Ordered Start: 01-10-2023 End: 01-16-2023 Medrol 4 mg Tab = 1 packet(s ), Oral, As Directed, as directed on package labeling, X 6 day(s), # 21 tab(s), Refills(s) 0, Pharmacy: [facility]/pharmacy #[id number], 160, cm, 01/10/23 10:36:00 EDT, Height/Length [...] package directions metoclopramide 10 mg oral tablet (16 sources) Dopamine-2 Receptor Antagonist Start: 08-12-2023 take 1 tablet by mouth every six hours Reglan 10 mg Tab 10 mg = 1 tab(s), Oral, q6hr, # 12 tab(s), Refills(s) 0, Pharmacy: [facility]/pharmacy #[id number], 160, cm, 08/12/23 20:54:00 EDT, Height/Length Dosing, 114.7, kg, 08/12/23 20:54:00 EDT, Weight Dosing Start Date: 08/12/23 Status: Ordered Start: 03-26-2023 End: 03-31-2023 take 1 tablet by mouth three times daily Reglan 10 mg Tab 10 mg = 1 tab(s), Oral, TID, X 5 day(s), # 15 tab(s), Refills(s) 0, Pharmacy: [facility]/pharmacy #[id number], 160, cm, 03/26/23 10:58:00 EST, Height/Length [...] 4 MG PO Every 8 hours 9 3 June 01, 2023 1:00am Start: 03-11-2023 take 1 tablet by wei th every [...] Ondansetron Discontinued 4 MG PO Q8H 6 2 January 21, 2022 12:00am March 29, 2022 [...] 8-10, # 9 cap(s), Refills(s) 0, Pharmacy: [facility]/pharmacy #[id number], 160, cm, 05/12/23 10:26:00 EST, Height/Length Dosing, 114.8, kg, 05/12/23 10:26:00 EST, Weight Dosing Start Date: 05/12/23 Status: Ordered Start: 11-14-2021 End: 01-21-2022 take 1 tablet by mouth three times daily Oxycodone (Roxicodone) 5 mg tablet Discontinued 5 MG PO Three times daily 7 November 14, 2021 January 21, 2022 8:16pm [...] 14, 2021 take 1 tablet by wei every six hours oxyCODONE HCl 5 MG [...] days., # 18 tab(s), Refills(s) 0, Pharmacy: [facility]/pharmacy #[id number], 160, cm, 06/27/23 11:54:00 EDT, Height/Length Dosing, 117.2, kg, 06/27/23 11:54:00 EDT, Weight Dosing Start Date: 06/27/23 Status: Ordered Start: 06-11-2023 End: 06-16-2023 take 1 tablet by mouth once daily predniSONE 50 mg Tab 50 mg = 1 tab(s), Oral, Daily, X 5 day(s), # 5 tab(s), Refills(s) 0, Pharmacy: [facility]/pharmacy #[id number], 160, cm, 06/11/23 19:00:00 EDT, Height/Length [...] 3 days Orally Once a day for 9 July, Active Start: 06-16-2022 End: 08-06-2022 take [...] Prednisone Discontinued 60 MG PO Daily 15 February 09, 2020 1:00am June 30, 2020 [...] day(s), # 60 cap(s), Refills(s) 1, Pharmacy: [facility]/pharmacy #[id number], 160, cm, 07/15/23 13:55:00 EDT, Height/Length [...] Nausea/Vomiting, # 6 EA, Refills(s) 0, Pharmacy: [facility]/pharmacy #[id number], 160, cm, 04/30/23 17:09:00 EST, Height/Length Dosing, 114, kg, 04/30/23 17:09:00 EST, Weight Dosing Start Date: 04/30/23 Status: Ordered Robaxin-750 (1 source) Robaxin-750 Acti ve 5 ml sodium chloride 9 mg/ml injection (2 sources) Start: 10-30-2023 sodium chlorid e flush 0.9 % injection 10 mL Start: 10-30-2023 End: 10-30-2023 sodium chloride 0.9 % bolus 1,000 mL sulfamethoxazole 800 mg / trimethoprim 160 mg oral tablet (20 sources) Dihydrofolate Reductase Inhibitor Antibacterial, Sulfonamide Antimicrobial Start: 09-25-2023 End: 10-02-2023 Bactrim D.S. 800 mg-160 mg Tab 1 tab(s), Oral, BID for 7 day(s), 14 tab(s), Refill(s) 0, [facility]/pharmacy #[id number], 160, cm, 09/25/23 11:43:00 EDT, Height/Length Dosing, 115.3, kg, 09/25/23 11:43:00 EDT, Weight Dosing Start Date: 09/25/23 Stop Date: 10/02/23 Status: Ordered Start: 04-01-2018 End: 04-11-2018 take 1 tablet by mouth twice daily Sulfamethoxazole-Trimethoprim (Bactrim D s) 800-160 mg tablet Discontinued 1 TAB PO Twice daily April 01, 2018 1:00am April 11, 2018 8:03pm tiZANidine 4 mg oral tablet (6 sources) Central alpha-2 Adrenergic Agonist Start: 06-27-2023 take 1 tablet by mouth every six hours as needed for pain tiZANidine 4 mg Tab 4 mg = 1 tab(s), Oral, q6hr, PRN Muscle pain, # 40 tab(s), Refills(s) 0, Pharmacy: [facility]/pharmacy #[id number], 160, cm, 06/27/23 11:54:00 EDT, Height/Length Dosing, 117.2, kg, 06/27/23 11:54:00 EDT, Weight Dosing Start Date: 06/27/23 Status: Ordered Start: 05-26-2023 End: 05-31-2023 take 1 tablet by mouth every eight hours Zanaflex 4 mg Tab 4 mg = 1 tab(s), Oral, q8hr, X 5 day(s), # 15 tab(s), Refills(s) 0, Pharmacy: [facility]/pharmacy #[id number], 160, cm, 05/26/23 19:39:00 EST, Height/Length Dosing, 120, kg, 05/26/23 19:39:00 EST, Weight Dosing Start Date: 05/26/23 Stop Date: 05/31/23 Status: Ordered traMADol hydrochloride 50 mg oral tablet (12 sources) Opioid Agonist Start: 05-15-2023 take 1 [...] Nausea/Vomiting, # 12 tab(s), Refills(s) 0, Pharmacy: [facility]/pharmacy #[id number], 160, cm, 06/22/23 14:24:00 EDT, Height/Length Dosing, 118.5, kg, 06/22/23 14:24:00 EDT, Weight Dosing Start Date: 06/22/23 Status: Ordered Start: 05-14-2023 take 1 tablet by wei th three times daily Zofran ODT 4 mg Tab-Dis 4 mg = 1 tab(s), Oral, TID, # 15 tab(s), Refills(s) 0, Pharmacy: [facility] #[id number], 160, cm, 05/14/23 10:27:00 EST, Height/Length Dosing, 115, kg, 05/14/23 10:27:00 EST, Weight Dosing Start Date: 05/14/23 Status: Ordered Start: 04-30-2023 take 1 tablet by wei th every eight hours Zofran ODT 4 mg Tab-Dis 4 mg = 1 tab(s), Oral, q8hr, # 12 tab(s), Refills(s) 0, [id number], cm, 04/30/23 17:09:00 EST, Height/Length Dosing, 114, kg, 04/30/23 17:09:00 EST, Weight Dosing Start Date: 04/30/23 Status: Ordered Start: 01-02-2023 take 1 tablet by wei th every eight hours as needed for nausea Zofran ODT 4 mg Tab-Dis 4 mg = 1 tab(s), Oral, q8hr, PRN Nausea/Vomiting, # 12 tab(s), Refills(s) 0, [id number] 160, cm, 01/02/23 16:09:00 EDT, Height/Length [...] 18, 2021 12:00am January 21, 2022 8:15pm cetirizine hydrochloride 10 mg oral tablet (20 [...] 01, 2017 1:00am February 11, 2017 1:03am diazePAM 5 mg oral tablet (6 sources) Benzodiazepine Start: 10-30-2023 End: 10-30-2023 diazePAM (VALIUM) tablet 5 mg Start: 12-04-2022 End: 12-04-2022 take 1 tablet by mouth three times daily diazePAM (VALIUM) 5 mg tablet Indications: Lumbar disc disease Take 1 Tab by mouth three times a day 10 Tab 0 12/04/2022 Active gabapentin 300 mg oral capsule (20 sources) Anti-epileptic Agent Start: 11-12-2022 End: 06-01-2023 take 300 mg by mouth three times daily Gabapentin Discontinued 300 MG PO Three times daily November 16, 2022 12:00am June 01, 2023 2:54pm gadoteridol (PROHANCE) injection 20 mL (1 source) Start: 10-30-2023 End: 10-30-2023 gadoteridol (PROHANCE) injection 20 mL hydrOXYzine hydrochloride 25 mg oral tablet (20 sources) Antihistamine Start: 07-17-2023 End: 11-14-2023 hydrOXYzine hydrochloride 25 mg Tab 25 mg = 1 tab(s), Oral, QID, PRN for anxiety, may take 2 at night, 1-2 times daily, X 30 day(s), # 120 tab(s), Refills(s) 3, Pharmacy: [facility]/pharmacy #[id number], 160, cm, 07/17/23 8:06:00 EDT, Height/Length [...] daily Levofloxacin Discontinued 750 MG PO Daily 9 9 November 12th, 2022 1:00am March 29, 2022 2:25pm 1 ml morphine sulfate 4 mg/ml cartridge (3 sources) Opioid Agonist Start: 10-31-2023 End: 10-31-2023 morphine injection 4 mg Start: 10-30-2023 End: 10-30-2023 morphine injection 4 mg Start: 10-30-2023 End: 10-30-2023 morphine injection 4 mg Multivitamin preparation (20 sources) Start: 06-30-2020 End: 11-27-2020 Multivitamin Discontinued CA P June 29, 2020 11:00pm November 27, 2020 [...] day, # 14 tab(s), Refills(s) 0, Pharmacy: [facility]acy #[id number], 160, cm, 07/26/23 11:12:00 EDT, Height/Length Dosing, 116.8, kg, 07/26/23 11:12:00 EDT, Weight Dosing Start Date: 07/26/23 Status: Ordered Start: 02-22-2023 take 1 tablet by wei th twice daily as needed for pain Naprosyn 500 mg Tab 500 mg = 1 tab(s), Oral, BID, PRN for pain, # 20 tab(s), Refills(s) 0, Pharmacy: [facility]/pharmacy #[id number], 160, cm, 04/02/23 21:48:00 EST, Height/Length Dosing, 110, kg, 04/02/23 21:48:00 EST, Weight Dosing Start Date: 04/02/23 Status: Ordered Start: 12-23-2022 take 1 tablet by wei twice daily as needed for pain naproxen 500 mg Tab 500 mg = 1 tab(s), Oral, BID, PRN for pain, # 20 tab(s), Refills(s) 0, Pharmacy: [facility]/pharmacy #[id number], 160, cm, 12/23/22 17:18:00 EDT, Height/Length [...] 26, 2022 3:39pm take 1 capsule by mo [facility] twice daily at mealtime omeprazole [...] 17, 2022 1:00am September 05, 2022 3:33pm topiramate 100 mg oral tablet (20 sources) [...] 05-20-2023 triamcinolone acetonide (Kenalog) injection 5 mg Problems Active Problems Problem Classification Problem Date Documented Da te Episodic/Chronic Allergic reactions (2 sources) Allergy status to penicillin; Translations: [Eczema] Onset: Episodic Chronic obstructive pulmonary disease and bronchiectasis (20 sources) Bronchitis; Translations: [Bronchitis, not specified as acute or chronic] 07-24-2021 Episodic Complications of surgical procedures or medical care (12 sources) Complication of procedure; Translations: [Unspecified complication of procedure, initial encounter] Onset: 4 Episodic Diseases of mouth; excluding dental (20 [...] accident, traffic, initial encounter] Onset: 4 Episodic Fever of unknown origin (1 source) Fever, unspecified; Translations: [Fever, unspecified] Onset: 4 Episodic Gastrointestinal hemorrhage (20 sources) [...] respiratory manifestations] 03-19-2022 Episodic Malaise and fatigue (20 sources) Weakness; Translations: [Fatigue] Onset: 2 Episodic Miscellaneous mental health disorders (1 source) Pain disorder with psychological factor; Translations: [Pain disorder with related psychological factors] 07-08-2023 Chronic Mood disorders (20 sources) Bipolar disorder; Translations: [Bipolar disorder] Onset: 3 09-10-2013 Chronic Mycoses (1 source) Candidal paronychia ; Translations: [Candidiasis of skin and nail] Onset: 4 Episodic Noninfectious gastroenteritis (20 sources) Noninfective gastroenteritis and colitis, unspecified; Translations: [Colitis] Onset: 2 03-19-2022 Episodic Osteoarthritis (20 sources) Arthritis of first carpometacarpal joint of right hand; Translations: [Unilateral primary osteoarthritis of first carpometacarpal joint, right hand] Onset: 4 05-15-2023 Chronic Other aftercare (1 source) Drug therapy finding; Translations: [Other intermodal customer service (current) drug therapy] 01-15-2023 Episodic Other aftercare (1 source) Procedure carried out on subject; Translations: [Encounter for other specified aftercare] Onset: 4 Episodic Other circulatory disease (1 source) Elevated blood-pressure reading without diagnosis of hypertension; Translations: [Elevated blood-pressure reading, without diagnosis of hypertension] Onset: 4 Episodic Other circulatory disease (20 sources) Elevated blood pressure 07-17-2023 Episodic Other [...] 4 06-05-2023 Episodic Other connective tissue disease (4 sources) Neuralgia and neuritis, unspecified; Translations: [Neuralgia and neuritis, unspecified] Onset: 4 Episodic Other gastrointestinal disorders (20 sources) Diarrhea; Translations: [Diarrhea, unspecified] Onset: 4 Episodic Other gastrointestinal disorders (2 sources) Drug induced constipation; Translations: [Drug induced constipation] Onset: 4 Episodic Other injuries and conditions due to external causes (9 sources) Contusion; Translations: [Other injury of unspecified body region, initial encounter] 04-12-2023 Episodic Other injuries and conditions due to external causes (1 source) Injury of head; Translations: [Unspecified injury of head, initial encounter] Onset: 4 Episodic Other injuries and conditions due to external causes (1 source) Traumatic AND/OR non-traumatic injury; Translations: [Other injury of unspecified body region, initial encounter] Onset: 4 Episodic Other injuries and conditions due to external causes (2 sources) Other injury of unspecified body region, initial encounter; Translations: [Other injury of unspecified body region, [...] Onset: 3 Chronic Other nervous system disorders (17 sources) Other chronic pain; Translations: [Other chronic pain] Onset: 3 Chronic Other nervous system disorders (1 source) Other chronic pain; Translations: [Other chronic pain] Onset: 3 Chronic Other nervous system disorders (1 source) Paresthesia; Translations: [Paresthesia of skin] Onset: 3 Episodic Other nervous system disorders (2 sources) Other acute postprocedural pain; Translations: [Other acute postprocedural pain] Onset: 4 Episodic Other non-traumatic joint disorders (1 source) Allergic arthritis of the hand; 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, right hand] Onset: 4 Chronic Other non-traumatic joint disorders (20 sources) Hip pain; Translations: [Pain in unspecified hip] 01-08-2021 Episodic Other non-traumatic joint disorders (6 sources) Pain in wrist; Translations: [Pain in [...] Episodic Other nutritional; endocrine; and metabolic disorders (20 sources) Weight gain 07-17-2023 Episodic Other screening for suspected conditions (not mental disorders or infectious disease) (4 sources) Encounter for screening mammogram for malignant neoplasm of breast; Translations: [Cardiac disease monitoring status] Onset: 3 Episodic Residual codes; unclassified (2 sources) Presence of other specified functional implants; Translations: [Presence of other specified functional implants] Onset: 4 Chronic Residual codes; unclassified (20 sources) Tobacco user [...] provider] Onset: 3 Episodic Residual codes; unclassified (20 sources) Chronic back pain 07-17-2023 Episodic Screening and history of mental health and substance abuse codes (17 sources) Patient encounter status; Translations: [Encounter for screening for depression] Episodic Skin and subcutaneous tissue infections (3 sources) Cellulitis; Translations: [Cellulitis, unspecified] Onset: 4 Episodic Skull and face fractures (20 sources) [...] lumbar region; Translations: [Low back pain] Onset: 1 Resolved: 1 Episodic Spondylosis; intervertebral disc disorders; other back [...] d ocumentation in Social History. Substance-related disorders (11 sources) Continuous opioid dependence; Translations: [Opioid use, [...] W/AND (SUSP) EXPOS COVID-19] Onset: 2 Unclassified (7 sources) Low back pain, unspecified; Translations: [Low back pain, unspecified] Onset: 3 Unclassified (20 sources) Drug therapy finding 07-17-2023 Unclassified (20 sources) Patient encounter status 07-17-2023 Unclassified (1 source) Pain in right wrist; Translations: [Pain in right wrist] Onset: 4 Unclassified (1 source) Pain in left shoulder; Translations: [Pain in left shoulder] Onset: 4 Unclassified (1 source) Low back pain, unspecified; Translations: [Low back pain, unspecified] Onset: 3 Unclassified (1 source) Other low back pain; Translations: [Other low back pain] Onset: 3 Unclassified (1 source) Trochanteric bursitis, left hip; Translations: [Trochanteric bursitis, left hip] Onset: 3 Unclassified (1 source) Other intervertebral disc degeneration, lumbar region; Translations: [Other intervertebral disc degeneration, lumbar region] Onset: 3 Unclassified (2 sources) Chronic back pain greater than 3 months duration Onset: 4 Urinary tract infections (20 sources) Urinary tract infectious disease; Translations: [Urinary tract infection, site not specified] 10-10-2021 Episodic Viral infection (20 sources) Disease caused by 2019-nCoV; Translations: [COVID-19] Onset: 3 10-18-2021 Episodic Viral infection (20 sources) Disease caused by 2019-nCoV Onset: 3 07-17-2023 Past or Other Problems Problem Classification Problem Date Documented Da te Episodic/Chronic Abdominal pain (20 sources) Right upper quadrant pain; Translations: [Right upper quadrant pain] Onset: 01-31-2014 11-13-2021 Episodic Fracture of upper limb (20 sources) Closed fracture of trapezoidal bone of wrist; Translations: [Displaced fracture of trapezoid [smaller multangular], right wrist, initial encounter for closed fracture] Onset: 05-11-2023 Episodic Other aftercare (3 sources) Other intermodal customer service (current) drug therapy; Translations: [OTH LAYOUT TECHNICIAN CURRENT DRUG THERAPY] Onset: 10-19-2021 Episodic Other [...] unclassified (3 sources) Insomnia; Translations: [Insomnia] Episodic Unclassified (4 sources) Other low back pain; Translations: [Other low back pain] Unclassified (1 source) Other low back pain M54.59 Onset: 03-30-2021 Resolved: 03-30-2021 Unclassified (1 source) Acute left-sided low back pain, unspecified whether sciatica present M54.50 Unclassified (14 sources) Myofascial low back pain; Translations: [Other low back pain] Unclassified (11 sources) Onset: 01-15-2023 Resolved: 06-05-2023 01-15-2023 Unclassified (4 sources) Low back pain, unspecified; Translations: [Low back pain, unspecified] Onset: 01-22-2023 Results Test Name Value Interpretation Reference Range Facility C reactive proteinon 024 CRP [Mass/Vol] 0.43 mg/dL Normal <1.00 [facility] Comment on above: Performed By: #### 2 064-4 #### JOLENE Cantu ([id number]) [facility] ([facility]) [address] [place] [address] CBC panel Auto (Bld)on 10-31 Erythrocyte distribution width (RBC) [Ratio] 13.0 % Normal 11.5-14.5 [facility] Comment on above: Performed By: #### 2 064-4 #### JOLENE Cantu ([id number]) [facility] ([facility]) [id number] [place] [address] Hematocrit (Bld) [Volume fraction] 39.1 % Normal 36.0-46.0 [facility] Comment on above: Performed By: #### 2 064-4 #### JOLENE Cantu ([id number]) [facility] ([facility]) [address] [place] [id number] Hemoglobin (Bld) [Mass/Vol] 12.8 g/dL Normal 12.0-16.0 [facility] Comment on above: Performed By: #### 2 064-4 #### JOLENE Cantu ([id number]) [facility] ([facility]) [address] [place] [address] 72419 MCH (RBC) [Entitic mass] 31.4 pg Normal 26.0-34.0 [facility] Comment on above: Performed By: #### 2 064-4 #### JOLENE Cantu ([id number]) [facility] ([facility]) [address] [place] [address] 23077 MCHC (RBC) [Mass/Vol] 32.7 g/dL Normal 32.0-36.0 [facility] Comment on above: Performed By: #### 2 064-4 #### JOLENE Cantu ([id number]) [facility] ([facility]) [address] [place] [address] 14783 MCV (RBC) [Entitic vol] 96 fL Normal 80-100 [facility] Comment on above: Performed By: #### 2 064-4 #### JOLENE Cantu ([id number]) [facility] ([facility]) [address] [place] [address] 41727 Nucleated RBC/100 WBC (Bld) [Ratio] 0.0 /100 WBCs Normal 0.0-0.0 [facility] Comment on above: Performed By: #### 2 064-4 #### JOLENE Cantu ([id number]) [facility] ([facility]) [address] [place] [address] 47214 Platelets (Bld) [#/Vol] 304 x10*3/uL Normal 150-450 [facility] Comment on above: Performed By: #### 2 064-4 #### OJLENE Cantu ([id number]) [facility] ([facility]) [id number] [place] [address] 52249 RBC (Bld) [#/Vol] 4.08 x10*6/uL Normal 4.00-5.20 [facility] Comment on above: Performed By: #### 2 064-4 #### JOLENE Cantu ([id number]) [facility] ([facility]) [id number] [place] [address] 80791 WBC (Bld) [#/Vol] 6.2 x10*3/uL Normal 4.4-11.3 [facility] Comment on above: Performed By: #### 2 064-4 #### JOLENE Cantu ([id number]) [facility] ([facility]) [id number] [place] [address] 64857 ESR Westergren method (Bld) [Velocity]on 11-01-2023 ESR (Bld) [Velocity] 44 mm/h High 0-20 [facility] Comment on above: Performed By: #### 2 064-4 #### JOLENE Cantu ([id number]) [facility] ([facility]) [id number] [place] [address] 29722 MRI LUMBAR SPINE W WO CONTRA STon 11-01-2023 MRI LUMBAR SPINE W WO CONTRAST EXAMINATION: MRI OF THE LUMBAR SPINE WITHOUT AND WITH CONTRAST 10/30/2023 8:21 pm TECHNIQUE: Multiplanar multisequence MRI of the lumbar spine was performed without and with the administration of intravenous contrast. COMPARISON: None. HISTORY: ORDERING SYSTEM PROVIDED HISTORY: electrode stimulator removed 2 weeks ago due to infection. was admitted with IV antibiotcs. pt dc home and pain returned last night TECHNOLOGIST PROVIDED HISTORY: electrode stimulator removed 2 weeks ago due to infection. was admitted with IV antibiotcs. pt dc home and pain returned last night Decision Support Exception - unselect if not a suspected or confirmed emergency medical condition->Emergency Medical Condition (MA) Reason for Exam: electrode stimulator removed 2 weeks ago due to infection. was admitted with IV antibiotcs. pt dc home and pain returned last night Additional signs and symptoms: kub done 10/29 for mri clearance FINDINGS: BONES/ALIGNMENT: Modic type 2 endplate change at L4-L5. Vertebral heights and alignment are normal. No abnormal marrow enhancement or edema. SPINAL CORD: The conus terminates normally. SOFT TISSUES: There is a 31 x 27 x 22 mm (transverse x anteroposterior x craniocaudal) rim enhancing pocket of fluid in the midline subcutaneous space at L3 with mild surrounding enhancement. No epidural or immediate paraspinal fluid collection is identified. L1-L2: There is no significant disc protrusion, spinal canal stenosis or neural foraminal narrowing. L2-L3: There is no significant disc protrusion, spinal canal stenosis or neural foraminal narrowing. L3-L4: There is no significant disc protrusion, spinal canal stenosis or neural foraminal narrowing. L4-L5: Disc bulge eccentric to the left causes mild thecal sac, mild right foraminal and moderate left foraminal stenosis. It also narrows the left lateral recess possibly compressing the descending left L5 nerve root. L5-S1: There is no significant disc protrusion, spinal canal stenosis or neural foraminal narrowing. IMPRESSION: 31 mm midline subcutaneous fluid collection at L3 may be sterile or infected. L4-L5 disc bulge possibly compressing the left L5 nerve root. Interpreted by: Johnson Shin MD Signed by: Johnson Shin MD 11/01/23 Final result Normal [facility] Renal function 2000 panelon 11-01-2023 Albumin BCP dye [Mass/Vol] 3.7 g/dL Normal 3.4-5.0 [facility] Comment on above: Performed By: #### 2 064-4 #### JOLENE Cantu ([id number]) [facility] ([facility]) [address] [place] [address] Anion gap [Moles/Vol] 12 mmol/L Normal 10-20 [facility] Comment on above: Performed By: #### 2 064-4 #### JOLENE Cantu ([id number]) [facility] ([facility]) [address] [place] [address] Calcium [Mass/Vol] 8.4 mg/dL Low 8.6-10.6 [facility] Comment on above: Performed By: #### 2 064-4 #### JOLENE Cantu ([id number]) [facility] ([facility]) [address] [place] [address] Chloride [Moles/Vol] 105 mmol/L Normal 98-107 [facility] Comment on above: Performed By: #### 2 064-4 #### JOLENE Cantu ([id number]) [facility] ([facility]) [address] [place] [address] CO2 [Moles/Vol] 25 mmol/L Normal 21-32 [facility] Comment on above: Performed By: #### 2 064-4 #### JOLENE Cantu ([id number]) [facility] ([facility]) [address] [place] [address] Creatinine [Mass/Vol] 0.73 mg/dL Normal 0.50-1.05 [facility] Comment on above: Performed By: #### 2 064-4 #### JOLENE Cantu ([id number]) [facility] ([facility]) [id number] [place] [address] 20751 GFR/1.73 sq M.predicted MDRD (S/P/Bld) [Vol rate/Area] mL/min/{1.73_m2} Normal >60 [facility] Comment on above: Result Comment: Calc ulations of estimated GFR are performed using the 2020 CKD-EPI Study Refit equation without the race variable for the IDMS-Traceable creatinine methods. https://jasn.asnjournals.org/content//ASN.38565 23444 Performed By: #### 2 064-4 #### JOLENE Cantu ([id number]) [facility] ([facility]) [address] [place] [address] Glucose [Mass/Vol] 84 mg/dL Normal 74-99 [facility] Comment on above: Performed By: #### 2 064-4 #### JOLENE Cantu ([id number]) [facility] ([facility]) [address] [place] [address] 90461 Phosphate [Mass/Vol] 3.1 mg/dL Normal 2.5-4.9 [facility] Comment on above: Result Comment: The performance characteristics of phosphorus testing in heparinized plasma have been validated by the individual laboratory site where testing is performed. Testing on heparinized plasma is not approved by the FDA; however, such approval is not necessary. Performed By: #### 2 064-4 #### JOLENE Cantu ([id number]) [facility] ([facility]) [address] [place] [address] 31621 Potassium [Moles/Vol] 3.9 mmol/L Normal 3.5-5.3 [facility] Comment on above: Performed By: #### 2 064-4 #### JOLENE Cantu ([id number]) [facility] ([facility]) [address] [place] [address] 10918 Sodium [Moles/Vol] 138 mmol/L Normal 136-145 [facility] Comment on above: Performed By: #### 2 064-4 #### JOLENE Cantu ([id number]) [facility] ([facility]) [address] [place] [address] 45389 Urea nitrogen [Mass/Vol] 14 mg/dL Normal 6-23 [facility] Comment on above: Performed By: #### 2 064-4 #### JOLENE Cantu ([id number]) [facility] ([facility]) [address] [place] [address] 61316 Bacteria identifiedon 2023 Bacteria identified Cx Nom (Bld) Test: Blood Culture Specimen Source: Peripheral Venipuncture Specimen Type: Blood culture Specimen Date: 10/31/2023511 Result Date: 11/02/2023 100 Result Status: Preliminary result Abnormal: No Resulting Lab: [facility] [address] [place] [address] 56172 CULTURE No growth at 2 days Normal [facility] Comment on above: Performed By: #### 5 0-8 #### SHWETA ROCHA ([id number]) [facility] ([facility]) [address] [place] [address] Blood type and Indirect anti body screen panel (Bld)on 10-31-2023 ABO group Nom (Bld) O Normal [facility] Comment on above: Performed By: #### 5 0-8 #### SHWETA ROCHA ([id number]) [facility] ([facility]) [address] [place] [address] Blood group antibody screen Ql Negative [facility] Comment on above: Performed By: #### 5 0-8 #### SHWETA ROCHA ([id number]) [facility] ([facility]) [address] [place] [address] D Ag Ql (Bld) Positive [facility] Comment on above: Performed By: #### 5 0-8 #### SHWETA ROCHA ([id number]) [facility] ([facility]) [address] [place] [address] CBC W Auto Differential pane l (Bld)on 10-31-2023 Basophils (Bld) [#/Vol] 0.01 x10*3/uL Normal 0.00-0.10 [facility] Comment on above: Performed By: #### 5 0-8 #### SHWETA ROCHA ([id number]) [facility] ([facility]) [address] [place] [address] Basophils/100 WBC (Bld) 0.2 % Normal 0.0-2.0 [facility] Comment on above: Performed By: #### 5 0-8 #### SHWETA ROCHA ([id number]) [facility] ([facility]) [address] [place] [address] Eosinophils (Bld) [#/Vol] 0.20 x10*3/uL Normal 0.00-0.70 [facility] Comment on above: Performed By: #### 5 0190-8 #### SHWETA ROCHA ([id number]) [facility] ([facility]) [address] [place] [address] 65263 Eosinophils/100 WBC (Bld) 3.3 % Normal 0.0-6.0 [facility] Comment on above: Performed By: #### 5 0-8 #### SHWETA ROCHA ([id number]) [facility] ([facility]) [address] [place] [address] 73800 Erythrocyte distribution width (RBC) [Ratio] 13.1 % Normal 11.5-14.5 [facility] Comment on above: Performed By: #### 5 0-8 #### SHWETA ROCHA ([id number]) [facility] ([facility]) [address] [place] [address] Hematocrit (Bld) [Volume fraction] 37.2 % Normal 36.0-46.0 [facility] Comment on above: Performed By: #### 5 0-8 #### SHWETA ROCHA ([id number]) [facility] ([facility]) [address] [place] [address] Hemoglobin (Bld) [Mass/Vol] 12.6 g/dL Normal 12.0-16.0 [facility] Comment on above: Performed By: #### 5 0190-8 #### SHWETA ROCHA ([id number]) [facility] ([facility]) [address] [place] [address] 81070 Immature granulocytes (Bld) [#/Vol] 0.01 x10*3/uL Normal 0.00-0.70 [facility] Comment on above: Performed By: #### 5 0190-8 #### SHWETA ROCHA ([id number]) [facility] ([facility]) [address] [place] [address] Immature granulocytes/100 WBC (Bld) 0.2 % Normal 0.0-0.9 [facility] Comment on above: Result Comment: Aspen ture Granulocyte Count (IG) includes promyelocytes, myelocytes and metamyelocytes but does not include bands. Percent differential counts (%) should be interpreted in the context of the absolute cell counts (cells/UL). Performed By: #### 5 0190-8 #### SHWETA ROCHA ([id number]) [facility] ([facility]) [address] [place] [address] 17929 Lymphocytes (Bld) [#/Vol] 1.51 x10*3/uL Normal 1.20-4.80 [facility] Comment on above: Performed By: #### 5 0-8 #### SHWETA ROCHA ([id number]) [facility] ([facility]) [address] [place] [address] Lymphocytes/100 WBC (Bld) 24.6 % Normal 13.0-44.0 [facility] Comment on above: Performed By: #### 5 0-8 #### SHWETA ROCHA ([id number]) [facility] ([facility]) [address] [place] [address] 98378 MCH (RBC) [Entitic mass] 30.3 pg Normal 26.0-34.0 [facility] Comment on above: Performed By: #### 5 0190-8 #### SHWETA ROCHA ([id number]) [facility] ([facility]) [address] [place] [address] 30849 MCHC (RBC) [Mass/Vol] 33.9 g/dL Normal 32.0-36.0 [facility] Comment on above: Performed By: #### 5 0190-8 #### SHWETA ROCHA ([id number]) [facility] ([facility]) [address] [place] [address] 69021 MCV (RBC) [Entitic vol] 89 fL Normal 80-100 [facility] Comment on above: Performed By: #### 5 0190-8 #### SHWETA ROCHA (49876) [facility] ([facility]) [address] [place] [address] 83211 Monocytes (Bld) [#/Vol] 0.45 x10*3/uL Normal 0.10-1.00 [facility] Comment on above: Performed By: #### 5 0190-8 #### SHWETA ROCHA (59081) [facility] ([facility]) [address] [place] [address] 70331 Monocytes/100 WBC (Bld) 7.3 % Normal 2.0-10.0 [facility] Comment on above: Performed By: #### 5 0190-8 #### SHWETA ROCHA ([id number]) [facility] ([facility]) [address] [place] [address] 62638 Neutrophils (Bld) [#/Vol] 3.95 x10*3/uL Normal 1.20-7.70 [facility] Comment on above: Result Comment: Perc ent differential counts (%) should be interpreted in the context of the absolute cell counts (cells/uL). Performed By: #### 5 0190-8 #### SHWETA ROCHA ([id number]) [facility] ([facility]) [address] [place] [address] 27692 Neutrophils/100 WBC (Bld) 64.4 % Normal 40.0-80.0 [facility] Comment on above: Performed By: #### 5 0190-8 #### SHWETA ROCHA ([id number]) [facility] ([facility]) [address] [place] [address] 77963 Nucleated RBC/100 WBC (Bld) [Ratio] 0.0 /100 WBCs Normal 0.0-0.0 [facility] Comment on above: Performed By: #### 5 0190-8 #### SHWETA ROCHA ([id number]) [facility] ([facility]) [address] [place] [address] 46084 Platelets (Bld) [#/Vol] 304 x10*3/uL Normal 150-450 [facility] Comment on above: Performed By: #### 5 0190-8 #### SHWETA ROCHA ([id number]) [facility] ([facility]) [address] [place] [address] 52985 RBC (Bld) [#/Vol] 4.16 x10*6/uL Normal 4.00-5.20 [facility] Comment on above: Performed By: #### 5 0190-8 #### SHWETA ROCHA (45409) [facility] ([facility]) [address] [place] [address] WBC (Bld) [#/Vol] 6.1 x10*3/uL Normal 4.4-11.3 [facility] Comment on above: Performed By: #### 5 0190-8 #### SHWETA ROCHA ([id number]) [facility] ([facility]) [address] [place] [address] Choriogonadotropin.beta subu niton 10-31-2023 HCG.beta subunit Qn m[IU]/mL Normal <5 [facility] Comment on above: Order Comment: Total HCG measurement is performed using the Siemens AtellGood Greens immunoassay which detects intact HCG and free beta HCG subunit. This test is not indicated for use as a tumor marker. HCG testing is performed using a different test methodology at [facility] than other [facility]. Direct result comparison should only be made within the same method. Performed By: #### 5 0190-8 #### SHWETA ROCHA ([id number]) [facility] ([facility]) [address] [place] [address] Comprehensive metabolic 2000 panelon 10-31-2023 Albumin BCP dye [Mass/Vol] 3.6 g/dL Normal 3.4-5.0 [facility] Comment on above: Performed By: #### 5 0190-8 #### SHWETA ROCHA ([id number]) [facility] ([facility]) [address] [place] [address] ALP [Catalytic activity/Vol] 75 U/L Normal 33-110 [facility] Comment on above: Performed By: #### 5 0190-8 #### SHWETA ROCHA (33907) [facility] ([facility]) [address] [place] [address] ALT With P-5'-P [Catalytic activity/Vol] 28 U/L Normal 7-45 [facility] Comment on above: Result Comment: Katia ents treated with Sulfasalazine may generate falsely decreased results for ALT. Performed By: #### 5 0190-8 #### SHWETA ROCHA ([id number]) [facility] ([facility]) [address] [place] [address] Anion gap [Moles/Vol] 13 mmol/L Normal 10-20 [facility] Comment on above: Performed By: #### 5 0190-8 #### BEATRIZIBRENE ROCHA ([id number]) [facility] ([facility]) [address] [place] [address] 61225 AST With P-5'-P [Catalytic activity/Vol] 34 U/L Normal 9-39 [facility] Comment on above: Performed By: #### 5 0190-8 #### SHWETA ROCHA ([id number]) [facility] ([facility]) [address] [place] [address] 83913 Bilirubin [Mass/Vol] 0.5 mg/dL Normal 0.0-1.2 [facility] Comment on above: Performed By: #### 5 0190-8 #### SHWETA ROCHA ([id number]) [facility] ([facility]) [address] [place] [address] 73292 Calcium [Mass/Vol] 8.2 mg/dL Low 8.6-10.6 [facility] Comment on above: Performed By: #### 5 0190-8 #### BEATRIZIBRENE BARNETT RIO KEY ([id number]) [facility] ([facility]) [address] [place] [address] 40214 Chloride [Moles/Vol] 106 mmol/L Normal 98-107 [facility] Comment on above: Performed By: #### 5 0190-8 #### BEATRIZIBELIGANESH BARNETTADAMA KEY ([id number]) [facility] ([facility]) [address] [place] [address] 50523 CO2 [Moles/Vol] 24 mmol/L Normal 21-32 [facility] Comment on above: Performed By: #### 5 0190-8 #### SHWETA ROCHA ([id number]) [facility] ([facility]) [address] [place] [address] 21733 Creatinine [Mass/Vol] 0.74 mg/dL Normal 0.50-1.05 [facility] Comment on above: Performed By: #### 5 0190-8 #### SHWETA ROCHA ([id number]) [facility] ([facility]) [address] [place] [address] 61984 GFR/1.73 sq M.predicted MDRD (S/P/Bld) [Vol rate/Area] mL/min/{1.73_m2} Normal >60 [facility] Comment on above: Result Comment: Calc ulations of estimated GFR are performed using the 2020 CKD-EPI Study Refit equation without the race variable for the IDMS-Traceable creatinine methods. https://jasn.asnjournals.org/content//ASN.25716 59099 Performed By: #### 5 0190-8 #### SHWETA ROCHA ([id number]) [facility] ([facility]) [address] [place] [address] 99447 Glucose [Mass/Vol] 90 mg/dL Normal 74-99 [facility] Comment on above: Performed By: #### 5 0190-8 #### SHWETA ROCHA ([id number]) [facility] ([facility]) [address] [place] [address] 72843 Potassium [Moles/Vol] 4.0 mmol/L Normal 3.5-5.3 [facility] Comment on above: Performed By: #### 5 0190-8 #### SHWETA ROCHA ([id number]) [facility] ([facility]) [address] [place] [address] 28466 Protein [Mass/Vol] 6.6 g/dL Normal 6.4-8.2 [facility] Comment on above: Performed By: #### 5 0190-8 #### ANAIBELIGANESH ERICKA MACKEY ([id number]) [facility] ([facility]) [address] [place] [address] Sodium [Moles/Vol] 139 mmol/L Normal 136-145 [facility] Comment on above: Performed By: #### 5 0190-8 #### ANAIBELIGANESH ERICKA MACKEY ([id number]) [facility] ([facility]) [address] [place] [address] Urea nitrogen [Mass/Vol] 13 mg/dL Normal 6-23 [facility] Comment on above: Performed By: #### 5 0190-8 #### BEATRIZIBELIGANESH ERICKA MACKEY ([id number]) [facility] ([facility]) [address] [place] [address] 45571 MR LUMBAR SPINE W AND WO IV CONTRASTon 10-31-2023 MR LUMBAR SPINE W AND WO IV CONTRAST Interpreted By: Amy Miller and Stephens Katherine STUDY: MR LUMBAR SPINE W AND WO IV CONTRAST; 10/31/2023 10:52 pm INDICATION: Signs/Symptoms:r/o infection. COMPARISON: MRI lumbar spine 10/31/2022 ACCESSION NUMBER(S): [id number] ORDERING CLINICIAN: ELKE ADAMS TECHNIQUE: Multiplanar multisequence MR imaging of the lumbar spine performed prior to and following administration of 20 mL Dotarem intravenous contrast. Sagittal T1, T2, STIR, axial T1 and T2 weighted images of the lumbar spine were acquired. Postcontrast sagittal and axial T1 imaging obtained. FINDINGS: Segmentation: There are 5 lumbar type vertebral bodies. The last rib-bearing vertebra is labeled T12. Conus: The lower thoracic cord appears unremarkable. The conus terminates at L2. Cauda equina are unremarkable. No abnormal enhancement. Epidural fluid: None. Alignment: Normal. Vertebral bodies: The vertebral body heights are maintained. Marrow signal: Degenerative type 2 endplate changes at L4-5. Otherwise the marrow signal is within normal limits. Intervertebral discs: Loss of intervertebral disc space most prominent at L4-5 with disc desiccation. 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 This causes moderate left neural foraminal stenosis. No significant spinal canal or right neural foraminal stenosis. L1-2: Prominent epidural fat and facet arthropathy without significant spinal canal or neural foraminal stenosis. L2-3: Circumferential disc bulge, prominent epidural fat, and facet arthropathy without significant spinal canal or neural foraminal stenosis. L3-4: Circumferential disc bulge, prominent epidural fat, and facet arthropathy without significant spinal canal or neural foraminal stenosis. L4-5: Circumferential disc bulge with superimposed left paracentral disc extrusion, prominent epidural fat, and facet arthrosis causing moderate spinal canal and bilateral neural foraminal stenosis. Severe stenosis of the left lateral recess L5-S1: Facet arthropathy without significant spinal canal or neural foraminal stenosis. Soft tissues: Within the posterior soft tissues to the left of the midline approximately the level of L3 a T2 hyperintense, T1 hypointense collection is seen measuring 3.3 x 3.3 x 2.4 cm (series 12, image 19 and series 15, image 34). There is surrounding enhancement which is favored to be postoperative and inflammatory in nature, however rim enhancement is not fully excluded. There is overlying soft tissue swelling. Findings appear new since prior imaging. IMPRESSION: 1. 3.3 cm fluid collection within the posterior subcutaneous tissues to the left of the midline at the level of L3. There is surrounding enhancement predominantly thought to be postsurgical and inflammatory in nature, however rim enhancement is not fully excluded. Differential considerations include a postoperative seroma versus abscess. Correlation with laboratory enzymes and fluid sampling suggested. No evidence of extension into the paraspinal musculature or posterior elements of the lumbar spine. 2. Interval worsening of lumbar spondylosis most notable at L4-5 with left paracentral disc bulge/extrusion resulting in effacement the left lateral recess which likely contacts the traversing left L5 nerve root as well as moderate canal stenosis. I personally reviewed the images/study and I agree with Germaine Solitario DO's (vice president and portfolio manager) findings as stated. This study was interpreted at [facility], [place], [place]. MACRO: None Signed by: Amy Miller 11/01/2023 12:21 AM Dictation workstation: [id number] Normal [facility] Urinalysis complete W Reflex Culture panel (U)on 10-31-2023 Appearance (U) Turbid Normal Clear [facility] Comment on above: Performed By: #### 5 0190-8 #### SHWETA ROCHA ([id number]) [facility] ([facility]) [address] [place] [address] 04590 Bilirubin (U) [Mass/Vol] Negative Normal NEGATIVE [facility] Comment on above: Performed By: #### 5 0190-8 #### SHWETA ROCHA ([id number]) [facility] [facility] ([facility]) [address] [place] [id number] Color (U) Yellow Normal Light-Yellow , Yellow, Dark-Yellow [facility] Comment on above: Performed By: #### 5 0190-8 #### SHWETA ROCHA ([id number]) [facility] ([facility]) [address] [place] [address] 18880 Epithelial cells.squamous Auto (Urine sed) [#/Area] 26-50 (1+) Normal Reference range not established. [facility] Comment on above: Performed By: #### 5 0190-8 #### SHWETA ROCHA ([id number]) [facility] ([facility]) [address] [place] [address] 50639 Glucose Auto test strip (U) [Mass/Vol] Normal Normal Normal [facility] Comment on above: Performed By: #### 5 0190-8 #### SHWETA ROCHA ([id number]) [facility] ([facility]) [address] [place] [address] 36232 Ketones (U) [Mass/Vol] Negative Normal NEGATIVE [facility] Comment on above: Performed By: #### 5 0190-8 #### SHWETA ROCHA ([id number]) [facility] ([facility]) [address] [place] [address] 31762 Leukocyte esterase Auto test strip Ql (U) Negative Normal NEGATIVE [facility] Comment on above: Performed By: #### 5 0190-8 #### SHWETA ROCHA ([id number]) [facility] ([facility]) [address] [place] [address] 74978 Mucus Auto (Urine sed) [#/Area] 3+ /LPF Normal Reference range not established. [facility] Comment on above: Performed By: #### 5 0190-8 #### SHWETA ROCHA ([id number]) [facility] ([facility]) [address] [place] [address] 54925 Nitrite Auto test strip Ql (U) Negative Normal NEGATIVE [facility] Comment on above: Performed By: #### 5 0190-8 #### SHWETA ROCHA ([id number]) [facility] [place] [address] [place] [address] 19037 pH (U) 6.0 [pH] Normal 5.0, 5.5, 6.0, 6.5, 7.0, 7.5, 8.0 [facility] Comment on above: Performed By: #### 5 0190-8 #### SHWETA ROCHA ([id number]) [facility] ([facility]) [address] [place] [address] 57600 Protein (U) [Mass/Vol] 30 (1+) Abnormal NEGAT ALEXANDRE, 10 (TRACE), 20 (TRACE) [facility] Comment on above: Performed By: #### 5 0190-8 #### SHWETA ROCHA ([id number]) [facility] ([facility]) [address] [place] [address] 97863 RBC (U) [#/Vol] Negative Normal NEGATIVE [facility] Comment on above: Performed By: #### 5 0190-8 #### SHWETA ROCHA ([id number]) [facility] ([facility]) [address] [place] [address] 19620 RBC Auto (Urine sed) [#/Area] 1-2 Normal NONE, 1-2, 3-5 [facility] Comment on above: Performed By: #### 5 0190-8 #### SHWETA ROCHA ([id number]) [facility] ([facility]) [address] [place] [address] 08506 Specific gravity (U) [Rel density] 1.033 Normal 1.005-1.035 [facility] Comment on above: Performed By: #### 5 0190-8 #### SHWETA ROCHA ([id number]) [facility] ([facility]) [address] [place] [address] Urobilinogen (U) [Mass/Vol] Normal Normal Normal [facility] Comment on above: Performed By: #### 5 0190-8 #### SHWETA BARNETT RIO KEY ([id number]) [facility] ([facility]) [address] [place] [address] 28218 WBC Auto (Urine sed) [#/Area] 1-5 Normal 1-5, NONE [facility] Comment on above: Performed By: #### 5 0190-8 #### SHWETA BARNETT RIO KEY ([id number]) [facility] ([facility] [address] [place] [address] 64421 XR ABDOMEN (KUB) (SINGLE AP VIEW)on 10-31-2023 XR ABDOMEN (KUB) (SINGLE AP VIEW) EXAMINATION: ONE SUPINE XRAY VIEW(S) OF THE ABDOMEN 10/30/2023 7:26 pm COMPARISON: CT abdomen January 30, 2014 HISTORY: ORDERING SYSTEM PROVIDED HISTORY: rule out FB in lumbar spine from spinal stimulator prior to MACHINE BURRER PROVIDED HISTORY: rule out FB in lumbar spine from spinal stimulator prior to MRI Reason for Exam: Pre MRI clearance, PT hx recent surgery to back including removal of spinal stimulator. PT clothing checked multiple times no exterior metal artifacts on clothing FINDINGS: Cholecystectomy clips as well as tubal ligation clips in the pelvis. No other foreign body. Nonobstructive bowel gas pattern. No evidence of free air. IMPRESSION: Cholecystectomy clips as well as tubal ligation clips in the pelvis. No other foreign body. Interpreted by: Liyah Miranda MD Signed by: Liyah Miranda MD 10/31/23 Final result Normal [facility] XR ABDOMEN 1 VIEWon 10-31-19 XR ABDOMEN 1 VIEW Interpreted By: Amy Miller, and Lisbeth Khan STUDY: XR PELVIS 1-2 VIEWS; XR ABDOMEN 1 VIEW; ; 10/31/2023 9:47 pm INDICATION: Signs/Symptoms:evaluate for abandoned SCS leads prior to MRI. COMPARISON: None ACCESSION NUMBER(S): [id number]; [id number] ORDERING CLINICIAN: GERMAINE SOLITARIO FINDINGS: AP views of the abdomen and pelvis were provided. Radiopaque tubal ligation clips are visualized overlying the pelvis. Right upper quadrant cholecystectomy clips No evidence of radiopaque spinal cord stimulator leads overlying the spine. No additional radiopaque foreign body is identified. Mild degenerative changes. No osseous abnormality. Nonobstructive bowel-gas pattern. The visualized lung bases and cardiac silhouette are unremarkable. Moderate stool burden. IMPRESSION: 1. Nonobstructive bowel gas pattern. No acute osseous abnormality identified. 2. Probable tubal ligation clips and cholecystectomy clips. Otherwise no radiopaque foreign bodies or hardware identified. I personally reviewed the image(s)/study and resident interpretation as stated by Dr. Erin Bob MD. I agree with the findings as stated. This study was interpreted at [facility], [place], [place]. MACRO: None Signed by: Amy Miller 10/31/2023 10:52 PM Dictation workstation: [id number] Normal [facility] XR Abdomen Single viewon Cholecystectomy clip s as well as tubal ligation clips in the pelvis. No other foreign body. [facility] RIS CONSOLIDATED EXAMINATION: ONE SUPINE XRAY VIEW(S) OF THE ABDOMEN 10/30/2023 7:26 pm COMPARISON: CT abdomen January 30, 2014 HISTORY: ORDERING SYSTEM PROVIDED HISTORY: rule out FB in lumbar spine from spinal stimulator prior to MACHINE BURRER PROVIDED HISTORY: rule out FB in lumbar spine from spinal stimulator prior to MRI Reason for Exam: Pre MRI clearance, PT hx recent surgery to back including removal of spinal stimulator. PT clothing checked multiple times no exterior metal artifacts on clothing FINDINGS: Cholecystectomy clips as well as tubal ligation clips in the pelvis. No other foreign body. Nonobstructive bowel gas pattern. No evidence of free air. 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 PT clothing checked multiple times no exterior metal artifacts on clothing FINDINGS: Cholecystectomy clips as well as tubal ligation clips in the pelvis. No other foreign body. Nonobstructive bowel gas pattern. No evidence of free air. IMPRESSION: Cholecystectomy clips as well as tubal ligation clips in the pelvis. No other foreign body. [facility] XR Abdomen Single viewOrdere d By: Liyah Miranda on 10-31-2023 [facility] Work Phone: XR CHEST 1 VIEWon 10-31-2023 XR CHEST 1 VIEW Interpreted By: Amy Miller and Kamau Nyokabi STUDY: XR CHEST 1 VIEW; 10/31/2023 4:38 am INDICATION: Signs/Symptoms:infectio us work up. COMPARISON: None. ACCESSION NUMBER(S): [id number] ORDERING CLINICIAN: ELKE ADAMS FINDINGS: AP radiographs of the chest were provided. CARDIOMEDIASTINAL SILHOUETTE: Cardiomediastinal silhouette is normal in size and configuration. LUNGS: Bilateral lungs appear clear. No pneumothorax, pleural effusion, or focal consolidation. ABDOMEN: No remarkable upper abdominal findings. BONES: Remote/healed right distal 2/3 clavicular fracture. No acute osseous changes. IMPRESSION: 1. No evidence of acute cardiopulmonary process. No focal consolidations. 2. Remote/healed right distal 2/3 clavicular fracture. I personally reviewed the images/study and I agree with Dr. Lucio Chadwick findings as stated. This study was interpreted at [place], [place] MACRO: None Signed by: Amy Miller 10/31/2023 4:46 AM Dictation workstation: [id number] Normal [facility] XR PELVIS 1-2 VIEWSon 2023 XR PELVIS 1-2 VIEWS Interpreted By: Amy Miller and [place] Lesley STUDY: XR PELVIS 1-2 VIEWS; XR ABDOMEN 1 VIEW; ; 10/31/2023 9:47 pm INDICATION: Signs/Symptoms:evaluate for abandoned SCS leads prior to MRI. COMPARISON: None ACCESSION NUMBER(S): [id number]; [id number] ORDERING CLINICIAN: GERMAINE SOLITARIO FINDINGS: AP views of the abdomen and pelvis were provided. Radiopaque tubal ligation clips are visualized overlying the pelvis. Right upper quadrant cholecystectomy clips No evidence of radiopaque spinal cord stimulator leads overlying the spine. No additional radiopaque foreign body is identified. Mild degenerative changes. No osseous abnormality. Nonobstructive bowel-gas pattern. The visualized lung bases and cardiac silhouette are unremarkable. Moderate stool burden. IMPRESSION: 1. Nonobstructive bowel gas pattern. No acute osseous abnormality identified. 2. Probable tubal ligation clips and cholecystectomy clips. Otherwise no radiopaque foreign bodies or hardware identified. I personally reviewed the image(s)/study and resident interpretation as stated by Dr. Erin Bob MD. I agree with the findings as stated. This study was interpreted at [facility], [place], [place]. MACRO: None Signed by: Amy Miller 10/31/2023 10:52 PM Dictation workstation: [id number] Normal [facility] Basic Metabolic Panelon 08-0 Anion gap [Moles/Vol] 10 mmol/L 9 - 17 mmol/L [facility] Calcium [Mass/Vol] 8.7 mg/dL 8.6 - 10. 4 mg/dL [facility] Chloride [Moles/Vol] 103 mmol/L 98 - 10 7 mmol/L [facility] CO2 [Moles/Vol] 25 mmol/L 20 - 31 mmol/L [facility] Creatinine [Mass/Vol] 0.7 mg/dL 0.5 - 0.9 mg/dL [facility] Est, Glom Filt Rate - [facility] Comment on above: These results are not intended for use in patients <18 years of age. eGFR results are calculated without a race factor using the 2020 CKD-EPI equation. Careful clinical correlation is recommended, particularly when comparing to results calculated using previous equations. The CKD-EPI equation is less accurate in patients with extremes of muscle mass, extra-renal metabolism of creatine, excessive creatine ingestion, or following therapy that affects renal tubular secretion. Glucose [Mass/Vol] 96 mg/dL 70 - 99 mg/dL [facility] Potassium [Moles/Vol] 4.1 mmol/L 3.7 - 5.3 mmol/L [facility] Sodium [Moles/Vol] 138 mmol/L 135 - 144 mmol/L [facility] Urea nitrogen [Mass/Vol] 13 mg/dL 6 - 20 mg/dL [facility] Basic Metabolic Profon 10-29 Anion gap [Moles/Vol] 10 mmol/L Normal 9-17 [facility] Comment on above: Performed By: #### B MP, CDP, CRP #### [facility] [address] [place] [address] Angiography Nurse: Keke Romero DO #### SED #### [address] [address] Angiography Nurse: Jose Enrique Oneal MD Calcium [Mass/Vol] 8.7 mg/dL Normal 8.6-10.4 [facility] Comment on above: Performed By: #### B MP, CDP, CRP #### [facility] [address] [place] [address] Angiography Nurse: Keke Romero DO #### SED #### [address] [address] Angiography Nurse: Jose Enrique Oneal MD Chloride [Moles/Vol] 103 mmol/L Normal 98-107 [facility] Comment on above: Performed By: #### B MP, CDP, CRP #### [facility] [address] [place] [address] Angiography Nurse: Keke Romero DO #### SED #### [address] [address] Angiography Nurse: Jose Enrique Oneal MD CO2 [Moles/Vol] 25 mmol/L Normal 20-31 [facility] Comment on above: Performed By: #### B MP, CDP, CRP #### [facility] [address] [facility] [place] [address] Angiography Nurse: Keke Romero DO #### SED #### [address] [place] [place] [address] Angiography Nurse: Jose Enrique Oneal MD Creatinine [Mass/Vol] 0.7 mg/dL Normal 0.5-0.9 [facility] Comment on above: Performed By: #### B MP, CDP, CRP #### [facility] [address] [facility] [place] [address] Angiography Nurse: Keke Romero DO #### SED #### [address] [address] Angiography Nurse: Jose Enrique Oneal MD GFR/1.73 sq M.predicted among non-blacks MDRD (S/P/Bld) [Vol rate/Area] mL/min/{1.73_m2} Normal >60 [facility] Comment on above: Result Comment: These results are not intended for use in patients <18 years of age. eGFR results are calculated without a race factor using the 2020 CKD-EPI equation. Careful clinical correlation is recommended, particularly when comparing to results calculated using previous equations. The CKD-EPI equation is less accurate in patients with extremes of muscle mass, extra-renal metabolism of creatine, excessive creatine ingestion, or following therapy that affects renal tubular secretion. Performed By: #### B MP, CDP, CRP #### [facility] [address] [facility] [place] [address] Angiography Nurse: Keke Romero DO #### SED #### [address] [address] Angiography Nurse: Jose Enrique Oneal MD Glucose [Mass/Vol] 96 mg/dL Normal 70-99 [facility] Comment on above: Performed By: #### B MP, CDP, CRP #### [facility] [address] [place] [address] Angiography Nurse: Keke Romero DO #### SED #### [address] [address] Angiography Nurse: Jose Enrique Oneal MD Potassium [Moles/Vol] 4.1 mmol/L Normal 3.7-5.3 [facility] Comment on above: Performed By: #### B MP, CDP, CRP #### [facility] [address] [place] [address] Angiography Nurse: Keke Romero DO #### SED #### [address] [address] Angiography Nurse: Jose Enrique Oneal MD Sodium [Moles/Vol] 138 mmol/L Normal 135-144 [facility] Comment on above: Performed By: #### B MP, CDP, CRP #### [facility] [address] [place] [address] Angiography Nurse: Keke Romero DO #### SED #### [address] [address] Angiography Nurse: Jose Enrique Oneal MD Urea nitrogen [Mass/Vol] 13 mg/dL Normal 6-20 [facility] Comment on above: Performed By: #### B MP, CDP, CRP #### [facility] [address] [place] [address] Angiography Nurse: Keke Romero DO #### SED #### [address] [address] Angiography Nurse: Jose Enrique Oneal MD C-Reactive Proteinon 024 CRP High sensitivity method [Mass/Vol] 3.6 mg/L 0.0 - 5.0 mg/L [facility] CRP [Mass/Vol] 3.6 mg/L Normal 0.0-5.0 [facility] Comment on above: Performed By: #### B MP, CDP, CRP #### [facility] [address] [place] [address] Angiography Nurse: Keke Romero DO #### SED #### [facility] [address] [place], [place] [id number] Angiography Nurse: Jose Enrique Oneal MD CBC with Auto Differentialon 10-30-2023 Basophils (Bld) [#/Vol] 0.00 10*3/uL [facility] Basophils/100 WBC (Bld) 0 % 0 - 2 % [facility] Eosinophils (Bld) [#/Vol] 0.10 10*3/uL [facility] Eosinophils/100 WBC (Bld) 2 % 0 - 4 % [facility] Erythrocyte distribution width (RBC) [Ratio] 14.2 % 11.5 - 14.9 % [facility] Hematocrit (Bld) [Volume fraction] 42.0 % 36 - 46 % [facility] Hemoglobin (Bld) [Mass/Vol] 13.8 g/dL 12.0 - 16.0 g/dL [facility] Lymphocytes/100 WBC (Bld) 25 % 24 - 44 % [facility] Lymphocytes/100 WBC (Bld) 2.50 % [facility] MCH (RBC) [Entitic mass] 31.3 pg 26 - 34 pg [facility] MCHC (RBC) [Mass/Vol] 33.0 g/dL 31 - 37 g/dL [facility] MCV (RBC) [Entitic vol] 95.0 fL 80 - 100 fL [facility] Monocytes/100 WBC (Bld) 7 % 1 - 7 % [facility] Monocytes/100 WBC (Bld) 0.70 % [facility] Neutrophils/100 WBC (Bld) 66 % 36 - 66 % [facility] Platelet mean volume (Bld) [Entitic vol] 8.1 fL 6.0 - 12.0 fL [facility] Platelets (Bld) [#/Vol] 347 10*3/uL [facility] RBC (Bld) [#/Vol] 4.42 10*6/uL 4.0 - 5.2 m/uL [facility] Segmented neutrophils/100 WBC (Bld) 6.60 % [facility] WBC other (Bld) [#/Vol] 9.9 [facility] CBC with Diffon 10-30-2023 Abs. Basophil 0.00 k/uL Normal 0.0-0.2 [facility] Comment on above: Performed By: #### B MP, CDP, CRP #### [facility] [address] [place] [address] Angiography Nurse: Keke Romero DO #### SED #### [address] [address] Angiography Nurse: Jose Enrique Oneal MD Abs.Neutrophil (Seg) 6.60 k/uL Normal 1.3-9.1 [facility] Comment on above: Performed By: #### B MP, CDP, CRP #### [facility] [address] [place] [address] Angiography Nurse: Keke Romero DO #### SED #### [address] [address] Angiography Nurse: Jose Enrique Oneal MD Basophils/100 WBC (Bld) 0 % Normal 0-2 [facility] Comment on above: Performed By: #### B MP, CDP, CRP #### [facility] [address] [place] [address] Angiography Nurse: Keke Romero DO #### SED #### [address] [address] Angiography Nurse: Jose Enrique Oneal MD Eosinophils (Bld) [#/Vol] 0.10 10*3/uL Normal 0.0-0.4 [facility] Comment on above: Performed By: #### B MP, CDP, CRP #### [facility] [address] [place] [address] Angiography Nurse: Keke Romero DO #### SED #### [address] [address] Angiography Nurse: Jose Enrique Oneal MD Eosinophils/100 WBC (Bld) 2 % Normal 0-4 [facility] Comment on above: Performed By: #### B MP, CDP, CRP #### [facility] [address] [place] [address] Angiography Nurse: Keke Romero DO #### SED #### [address] [address] Angiography Nurse: Jose Enrique Oneal MD Erythrocyte distribution width (RBC) [Ratio] 14.2 % Normal 11.5-14.9 [facility] Comment on above: Performed By: #### B MP, CDP, CRP #### [facility] [address] [place] [address] Angiography Nurse: Keke Romero DO #### SED #### [address] [address] Angiography Nurse: Jose Enrique Oneal MD Hematocrit (Bld) [Volume fraction] 42.0 % Normal 36-46 [facility] Comment on above: Performed By: #### B MP, CDP, CRP #### [facility] [address] [place] [address] Angiography Nurse: Keke Romero DO #### SED #### [address] [address] Angiography Nurse: Jose Enrique Oneal MD Hemoglobin (Bld) [Mass/Vol] 13.8 g/dL Normal 12.0-16.0 [facility] Comment on above: Performed By: #### B MP, CDP, CRP #### [facility] [address] [place] [address] Angiography Nurse: Keke Romero DO #### SED #### [address] [address] Angiography Nurse: Jose Enrique Oneal MD Lymphocytes (Bld) [#/Vol] 2.50 10*3/uL Normal 1.0-4.8 [facility] Comment on above: Performed By: #### B MP, CDP, CRP #### [facility] [address] [place] [address] Angiography Nurse: Keke Romero DO #### SED #### [address] [address] Angiography Nurse: Jose Enrique Oneal MD Lymphocytes/100 WBC (Bld) 25 % Normal 24-44 [facility] Comment on above: Performed By: #### B MP, CDP, CRP #### [facility] [address] [place] [address] Angiography Nurse: Keke Romero DO #### SED #### [address] [address] Angiography Nurse: Jose Enrique Oneal MD MCH (RBC) [Entitic mass] 31.3 pg Normal 26-34 [facility] Comment on above: Performed By: #### B MP, CDP, CRP #### [facility] [address] [place] [address] Angiography Nurse: Keke Romero DO #### SED #### [address] [address] Angiography Nurse: Jose Enrique Oneal MD MCHC (RBC) [Mass/Vol] 33.0 g/dL Normal 31-37 [facility] Comment on above: Performed By: #### B MP, CDP, CRP #### [facility] [address] [place] [address] Angiography Nurse: Keke Romero DO #### SED #### [address] [address] Angiography Nurse: Jose Enrique Oneal MD MCV (RBC) [Entitic vol] 95.0 fL Normal 80-100 [facility] Comment on above: Performed By: #### B MP, CDP, CRP #### [facility] [address] [place] [address] Angiography Nurse: Keke Romero DO #### SED #### [address] [address] Angiography Nurse: Jose Enrique Onela MD Monocytes (Bld) [#/Vol] 0.70 10*3/uL Normal 0.1-1.3 [facility] Comment on above: Performed By: #### B MP, CDP, CRP #### [facility] [address] [place] [address] Angiography Nurse: Keke Romero DO #### SED #### [address] [address] Angiography Nurse: Jose Enrique Oneal MD Monocytes/100 WBC (Bld) 7 % Normal 1-7 [facility] Comment on above: Performed By: #### B MP, CDP, CRP #### [facility] [address] [place] [address] Angiography Nurse: Keke Romero DO #### SED #### [address] [address] Angiography Nurse: Jose Enrique Oneal MD Neutrophil (Seg) 66 % Normal 36-66 [facility] Comment on above: Performed By: #### B MP, CDP, CRP #### [facility] [address] [place] [address] Angiography Nurse: Keke Romero DO #### SED #### [address] [address] Angiography Nurse: Jose Enrique Oneal MD Platelet mean volume (Bld) [Entitic vol] 8.1 fL Normal 6.0-12.0 [facility] Comment on above: Performed By: #### B MP, CDP, CRP #### [facility] [address] [place] [address] Angiography Nurse: Keke Romero DO #### SED #### [address] [address] Angiography Nurse: Jose Enrique Oneal MD Platelets (Bld) [#/Vol] 347 10*3/uL Normal 150-450 [facility] Comment on above: Performed By: #### B MP, CDP, CRP #### [facility] [address] [place] [address] Angiography Nurse: Keke Romero DO #### SED #### [address] [address] Angiography Nurse: Jose Enrique Oneal MD RBC (Bld) [#/Vol] 4.42 10*6/uL Normal 4.0-5.2 [facility] Comment on above: Performed By: #### B MP, CDP, CRP #### [facility] [address] [place] [address] Angiography Nurse: Keke Romero DO #### SED #### [address] [address] Angiography Nurse: Jose Enrique Oneal MD WBC (Bld) [#/Vol] 9.9 10*3/uL Normal 3.5-11.0 [facility] Comment on above: Performed By: #### B MP, CDP, CRP #### [facility] [address] [place] [address] Angiography Nurse: Keke Romero DO #### SED #### [facility] [facility] [address] [place], [place] [id number] Angiography Nurse: Jose Enrique Oneal MD ED Clinical Summaryon 2023 ED Clinical Summary Normal [facility] ED Note-Physicianon 10-30-19 ED Note-Physician Normal [facility] Comment on above: Result Comment: Elec tronically Signed By: Annette Watkins, [email or web address]\Date and Time Signed: 10/30/23 15:29 EDT ED Patient Education Noteon 10-30-2023 ED Patient Education Note Normal [facility] ED Patient Summaryon ED Patient Summary Normal [facility] No Panel Informationon 10-29 [facility] Sedimentation Rateon ESR Photometric method (Bld) [Velocity] 32 High [facility] Interpretation and review of laboratory results Abnormal [facility] Sedimentation Rate 32 mm/Hr High 0-20 [facility] Comment on above: Performed By: #### B MP, CDP, CRP #### [facility] [address] [place] [address] Angiography Nurse: Keke Romero DO #### SED #### [facility] [address] [place] [address] Angiography Nurse: Jsoe Enrique Oneal MD XR Abdomen Single viewon Radiology Study observation (narrative) [facility] ED Clinical Summaryon 2023 ED Clinical Summary Normal [facility] ED Note-Physicianon 10-26-19 ED Note-Physician Normal [facility] Comment on above: Result Comment: Elec tronically Signed By: Pedro Pablo Fletcher DO.[email or web address]\Date and Time Signed: 10/26/23 03:05 EDT ED Patient Education Noteon 10-26-2023 ED Patient Education Note Normal [facility] ED Patient Summaryon 024 ED Patient Summary Normal [facility] Alanine aminotransferase [En zymatic activity/volume] in Serum or PlasmaOrdered By: Peter Veliz on 10-19-2023 ALT [Catalytic activity/Vol] 41 U/L Normal 7-52 [facility] Comment on above: Performed By: #### C CANDACE WADE CUBLD #### [address] Albumin [Mass/volume] in Ser um or Plasma by Bromocresol green (BCG) dye binding methoOrdered By: Peter Veliz on 10-19-2023 Albumin BCG dye [Mass/Vol] 4.0 g/dL 3.5-5.7 [facility] Alkaline phosphatase [Enzyma tic activity/volume] in Serum or PlasmaOrdered By: Peter Veliz on 10-19-2023 ALP [Catalytic activity/Vol] 92 U/L Normal 34-104 [facility] Comment on above: Performed By: #### C CANDACE WADE CUBLD #### [address] Aspartate aminotransferase [ Enzymatic activity/volume] in Serum or PlasmaOrdered By: Peter Veliz on 10-19-2023 AST [Catalytic activity/Vol] 22 U/L Normal 13-39 [facility] Comment on above: Performed By: #### C CANDACE WADE CUBLD #### [address] Automated basophil %Ordered By: Peter Veliz on 10-19-2023 Basophils/100 WBC (Bld) 0.3 % Normal . [facility] Comment on above: Performed By: #### C CANDACE WADE CUBLD #### [address] Automated basophil countOrde red By: Peter Veliz on 10-19-2023 Basophils (Bld) [#/Vol] 0.0 10*3/uL Normal 0.0-0.2 [facility] Comment on above: Result Comment: PERF ORMED BY: [place] [address] PATHOLOGIST JOB RECRUITER JASON WILSON M.D. Performed By: #### C BC, CMP, CUBLD #### [address] Automated blood monocyte cou ntOrdered By: Peter Veliz on 10-19-2023 Monocytes (Bld) [#/Vol] 0.8 10*3/uL Normal 0.0-0.8 [facility] Comment on above: Performed By: #### C BC, CMP, CUBLD #### [address] Automated eosinophil %Ordere d By: Peter Veliz on 10-19-2023 Eosinophils/100 WBC (Bld) 1.9 % Normal . [facility] Comment on above: Performed By: #### C BC, CMP, CUBLD #### [address] Automated eosinophil countOr dered By: Peter Veliz on 10-19-2023 Eosinophils (Bld) [#/Vol] 0.2 10*3/uL Normal 0.0-0.45 [facility] Comment on above: Performed By: #### C BC, CMP, CUBLD #### [address] Automated monocyte %Ordered By: Peter Veliz on 10-19-2023 Monocytes/100 WBC (Bld) 6.8 % Normal . [facility] Comment on above: Performed By: #### C BC, CMP, CUBLD #### [address] Automated neutrophil %Ordere d By: Peter Veliz on 10-19-2023 Neutrophils/100 WBC (Bld) 72.3 % Normal . [facility] Comment on above: Performed By: #### C BC, CMP, CUBLD #### [address] Bacteria [Presence] in Urine by AutomatedOrdered By: Peter Veliz on 10-19-2023 Bacteria Auto Ql (U) None seen [HPF] None Seen [facility] Bilirubin Test strip Ql (U)O rdered By: Peter Veliz on 10-19-2023 Bilirubin Ql (U) Negative Negative [facility] Bilirubin.total [Mass/volume ] in Serum or PlasmaOrdered By: Peter Veliz on 10-19-2023 Bilirubin [Mass/Vol] 0.5 mg/dL Normal 0.3-1.0 [facility] Comment on above: Performed By: #### C BC, CMP, CUBLD #### [facility] [address] [place] [address] Blood Cultureon 10-19-2023 Bacteria identified Cx Nom (Bld) NO GROWTH 5 DAYS PERFORMED BY: [place] [address] PATHOLOGIST JOB RECRUITER JASON WILSON M.D. Normal [facility] Comment on above: Performed By: #### C BC, CMP, CUBLD #### [address] Bacteria identified Cx Nom (Bld) NO GROWTH 5 DAYS PERFORMED BY: [place] [address] PATHOLOGIST JOB RECRUITER JASON WILSON M.D. Normal [facility] Comment on above: Performed By: #### C BC, CMP, CUBLD #### [facility] [address] [place] [address] COVID CepheidOrdered By: Cedric Veliz on 10-19-2023 SARS-CoV-2 (COVID-19) Ab IA Ql Negative Negative [facility] Comment on above: This is a duplicate Cepheid Xpert Xpress CoV-2/Flu/RSV Plus RNA by RT-PCR result to be used for statistical tracking purpose only. SARS-CoV-2 (COVID-19) RNA LINDSEY+probe Ql (Unsp spec) [facility] COVID-19 / Flu A/B / RSV PCR on 10-19-2023 SARS-CoV-2 (COVID-19) RNA LINDSEY+probe Ql (Unsp spec) COVID-19 Cepheid Result Negative for SARS-CoV-2 RNA by RT-PCR Flu A Cepheid Result Negative for Flu A RNA by RT-PCR Flu B Cepheid Result Negative for Flu B RNA by RT-PCR RSV Cepheid Result Negative for RSV RNA by RT-PCR COVID19 Blank Space -------- Reference: Negative COVID19 Blank Space -------- Cepheid Disclaimer The Cepheid Xpert Xpress CoV-2/Flu/RSV Plus has Cepheid Disclaimer not been FDA cleared or approved; this test has Cepheid Disclaimer been authorized by FDA under an EUA for use by Cepheid Disclaimer authorized laboratories; this test has been Cepheid Disclaimer authorized only for the simultaneous qualitative Cepheid Disclaimer detection and differentiation of nucleic acids from Cepheid Disclaimer SARS-CoV-2, influenza A, influenza B, and Cepheid Disclaimer respiratory syncytial virus (RSV), and not for any Cepheid Disclaimer other viruses or pathogens; and this test is only Cepheid Disclaimer authorized for the duration of the declaration that Cepheid Disclaimer circumstances exist justifying the authorization of Cepheid Disclaimer emergency use of in vitro diagnostic tests for Cepheid Disclaimer detection and/or diagnosis of COVID-19 under Cepheid Disclaimer Section 564(b)(1) of the Act, 21 U.S.C. 360bbb- Cepheid Disclaimer 3(b)(1), unless the authorization is terminated or Cepheid Disclaimer revoked sooner. PERFORMED BY: [facility] [address] [place] [address] PATHOLOGIST JOB RECRUITER JASON WILSON M.D. Normal [facility] Comment on above: Performed By: #### C BC, CMP, DEYVI #### [address] Calcium [Mass/volume] in Ser um or PlasmaOrdered By: Peter Veliz on 10-19-2023 Calcium [Mass/Vol] 8.9 mg/dL Normal 8.6-10.3 [facility] Comment on above: Performed By: #### C CANDACE WADE, CUBLD #### [address] Carbon dioxide, total [Moles /volume] in Serum or PlasmaOrdered By: Peter Veliz on 10-19-2023 CO2 [Moles/Vol] 25.7 mmol/L Normal 21.0-31.0 [facility] Comment on above: Performed By: #### C CANDACE WADE CUBLD #### [address] Cepheid COVID PCR Negativeon 10-19-2023 SARS-CoV-2 (COVID-19) RNA LINDSEY+probe Ql (Unsp spec) Negative Normal Negative [facility] Comment on above: Result Comment: This is a duplicate Cepheid Xpert Xpress CoV-2/Flu/RSV Plus RNA by RT-PCR result to be used for statistical tracking purpose only. PERFORMED BY: [place] [address] PATHOLOGIST JOB RECRUITER JASON WILSON M.D. Performed By: #### C CANDACE WADE CUBLD #### [place] [address] [place] Chloride [Moles/volume] in S saw or PlasmaOrdered By: Peter Veliz on 10-19-2023 Chloride [Moles/Vol] 107 mmol/L Normal 98-107 [facility] Comment on above: Performed By: #### C CANDACE WADE, CUBLD #### [address] Color of Urine by AutoOrdere d By: Peter Veliz on 10-19-2023 Color (U) Yellow Normal Yellow [facility] Comment on above: Order Comment: Name Collection Type:: Clean-Voided Midstream Performed By: #### A DDONUAPLUS #### [address] Complete Blood Count Auto Di ffon 10-19-2023 Mean Corpuscular HGB Conc 34.0 g/dL Normal 32.0-35.0 [facility] Comment on above: Performed By: #### C BC, CMP, CUBLD #### [facility] [address] [place] [address] [place] Monocytes/100 WBC (Bld) 19.02 % Normal 0.00-20.00 [facility] Comment on above: Performed By: #### C BC, CMP, CUBLD #### [facility] [address] NRBC% 0.2 /100{WBC} Normal 0-0.5 [facility] Comment on above: Performed By: #### C BC, CMP, CUBLD #### [address] Comprehensive Metabolic Pane cassie 10-19-2023 Albumin [Mass/Vol] 4.0 g/dL Normal 3.5-5.7 [facility] Comment on above: Performed By: #### C BC, CMP, CUBLD #### [place] [address] [place] Creatinine Clr Calc Pharmacy 115.17 Normal [facility] Comment on above: Result Comment: PERF ORMED BY: [place] [address] PATHOLOGIST JOB RECRUITER JASON WILSON M.D. Performed By: #### C BC, CMP, CUBLD #### [place] [address] [place] GFR/1.73 sq M.predicted MDRD (S/P/Bld) [Vol rate/Area] mL/min/{1.73_m2} Normal [facility] Comment on above: Performed By: #### C BC, CMP, CUBLD #### [place] [address] [place] Creatinine [Mass/volume] in Serum or PlasmaOrdered By: Peter Veliz on 10-19-2023 Creatinine [Mass/Vol] 0.74 mg/dL Normal 0.60-1.20 [facility] Comment on above: Performed By: #### C BC, CMP, CUBLD #### [facility] [address] [place] [address] [place] Dipstick and Microscopicon 0 10-19-2023 Bacteria,Urine None Seen Normal None Seen [facility] Comment on above: Order Comment: Name Collection Type:: Clean-Voided Midstream Performed By: #### A DDONUAPLUS #### [place] [address] [place] Bilirubin,Urine Negative Normal Negative [facility] Comment on above: Order Comment: Name Collection Type:: Clean-Voided Midstream Performed By: #### A DDONUAPLUS #### [place] [address] [place] Glucose Ql (U) Normal Normal Normal [facility] Comment on above: Order Comment: Name Collection Type:: Clean-Voided Midstream Performed By: #### A DDONUAPLUS #### [place] [address] [place] Granular Casts, Urine 1-2 High None Seen [facility] Comment on above: Order Comment: Name Collection Type:: Clean-Voided Midstream Performed By: #### A DDONUAPLUS #### [place] [address] [place] Hyaline Casts,Urine 0-8 Normal 0-8 [facility] Comment on above: Order Comment: Name Collection Type:: Clean-Voided Midstream Performed By: #### A DDONUAPLUS #### [place] [address] [place] Mucus,Urine Rare Normal [facility] Comment on above: Order Comment: Name Collection Type:: Clean-Voided Midstream Result Comment: PERF ORMED BY: [place] [address] PATHOLOGIST JOB RECRUITER JASON WILSON M.D. Performed By: #### A DDONUAPLUS #### [place] [address] [place] Nitrite,Urine Negative Normal Negative [facility] Comment on above: Order Comment: Name Collection Type:: Clean-Voided Midstream Performed By: #### A DDONUAPLUS #### [address] Occult Blood,Urine Negative Normal Negative [facility] Comment on above: Order Comment: Name Collection Type:: Clean-Voided Midstream Result Comment: PERF ORMED BY: [place] [address] PATHOLOGIST JOB RECRUITER JASON WILSON M.D. Performed By: #### A DDONUAPLUS #### [address] RBC,Urine 1-2 Normal 0-4 [facility] Comment on above: Order Comment: Name Collection Type:: Clean-Voided Midstream Performed By: #### A DDONUAPLUS #### [place] [address] [place] Specificy [place],Urine 1.027 Normal 1.001-1.030 [facility] Comment on above: Order Comment: Name Collection Type:: Clean-Voided Midstream Performed By: #### A DDONUAPLUS #### [place] [address] [place] Squamous Epithelial Cell,Urine 3-4 High 0-2 [facility] Comment on above: Order Comment: Name Collection Type:: Clean-Voided Midstream Performed By: #### A DDONUAPLUS #### [place] [address] [place] Urobilinogen,Urine Normal Normal Normal [facility] Comment on above: Order Comment: Name Collection Type:: Clean-Voided Midstream Performed By: #### A DDONUAPLUS #### [place] [address] [place] WBC,Urine 1-2 Normal 0-4 [facility] Comment on above: Order Comment: Name Collection Type:: Clean-Voided Midstream Performed By: #### A DDONUAPLUS #### [facility] [address] Epithelial cells.squamous [# /area] in Urine sediment by Automated countOrdered By: Peter Veliz on 10-19-2023 Epithelial cells.squamous Auto (Urine sed) [#/Area] 3-4 [HPF] High 0-2 [facility] Erythrocyte distribution wid th [Ratio] by Automated countOrdered By: Peter Veliz on 10-19-2023 Erythrocyte distribution width (RBC) [Ratio] 13.9 % Normal 11.9-15.3 [facility] Comment on above: Performed By: #### C CANDACE WADE CUBLD #### [address] Erythrocytes [#/area] in Uri ne sediment by Automated countOrdered By: Peter Veliz on 10-19-2023 RBC Auto (Urine sed) [#/Area] 1-2 [HPF] 0-4 [facility] Erythrocytes [#/volume] in B lood by Automated countOrdered By: Peter Veliz on 10-19-2023 RBC (Bld) [#/Vol] 4.47 10*6/uL Normal 3.60-5.00 [facility] Comment on above: Performed By: #### C CADNACE WADE CUBLD #### [address] Glucose [Mass/volume] in Ser um or PlasmaOrdered By: Peter Veliz on 10-19-2023 Glucose [Mass/Vol] 87 mg/dL Normal 70-100 [facility] Comment on above: ADA recommended refe rence rangeRandom Glucose Reference Range is dependent on time and content of last meal. Glucose of more than 200 mg/dL in a nonstressed, ambulatory subject supports the diagnosis of Diabetes Mellitus. Result Comment: [place] om Glucose Reference Range is dependent on time and content of last meal. Glucose of more than 200 mg/dL in a nonstressed, ambulatory subject supports the diagnosis of Diabetes Mellitus. ADA recommended reference range Performed By: #### C CANDACE WADE CUBLD #### [place] [address] [place] Glucose [Mass/volume] in Uri ne by Test stripOrdered By: Peter Veliz on 10-19-2023 Glucose Test strip (U) [Mass/Vol] Normal mg/dL Normal [facility] Granular casts [#/area] in U rine by Computer assisted methodOrdered By: Peter Veliz on 10-19-2023 Granular casts Computer assisted (U) [#/Area] 1-2 [LPF] High None Seen [facility] Hematocrit [Volume Fraction] of Blood by Automated countOrdered By: Peter Veliz on 10-19-2023 Hematocrit (Bld) [Volume fraction] 41.9 % Normal 34.0-46.4 [facility] Comment on above: Performed By: #### C CANDACE WADE CUBLD #### [facility] [address] [place] [address] Hemoglobin Test strip Ql (U) Ordered By: Peter Veliz on 10-19-2023 Hemoglobin Ql (U) Negative Negative [facility] Hemoglobin [Mass/volume] in BloodOrdered By: Peter Veliz on 10-19-2023 Hemoglobin (Bld) [Mass/Vol] 14.2 g/dL Normal 11.8-15.4 [facility] Comment on above: Performed By: #### C CANDACE WADE, DEYVI #### [facility] [address] [place] [address] [place] Hyaline casts [#/area] in Ur ine sediment by Automated countOrdered By: Peter Veliz on 10-19-2023 Hyaline casts Auto (Urine sed) [#/Area] 0-8 [LPF] 0-8 [facility] Ketones [Presence] in Urine by Test stripOrdered By: Peter Veliz on 10-19-2023 Ketones Ql (U) Negative Normal Negative [facility] Comment on above: Order Comment: Name Collection Type:: Clean-Voided Midstream Performed By: #### A DDONUAPLUS #### [facility] [address] [place] [address] [place] Lactate [Moles/volume] in Se rum or PlasmaOrdered By: Peter Veliz on 10-19-2023 Lactate [Moles/Vol] 1.0 mmol/L Normal 0.5-2.2 [facility] Comment on above: Result Comment: PERF ORMED BY: [place] [address] PATHOLOGIST JOB RECRUITER JASON WILSON M.D. Performed By: #### C BC, CMP, CUBLD #### [address] Leukocyte esterase [Presence ] in Urine by Test stripOrdered By: Peter Veliz on 10-19-2023 Leukocyte esterase Test strip Ql (U) Negative Normal Negative [facility] Comment on above: Order Comment: Name Collection Type:: Clean-Voided Midstream Performed By: #### A DDONUAPLUS #### [place] [address] [place] Leukocytes [#/area] in Urine sediment by Automated countOrdered By: Peter Veliz on 10-19-2023 WBC Auto (Urine sed) [#/Area] 1-2 [HPF] 0-4 [facility] Leukocytes [#/volume] correc lisa for nucleated erythrocytes in Blood by Automated counOrdered By: Peter Veliz on 10-19-2023 WBC corrected for nucl RBC Auto (Bld) [#/Vol] 11.5 10*3/uL 3.8-11.6 [facility] Leukocytes [#/volume] in Blo od by Automated countOrdered By: Peter Veliz on 10-19-2023 WBC (Bld) [#/Vol] 11.5 10*3/uL Normal 3.8-11.6 [facility] Comment on above: Performed By: #### C BC, CMP, CUBLD #### [place] [address] [place] Lymphocytes [#/volume] in Bl ood by Automated countOrdered By: Peter Veliz on 10-19-2023 Lymphocytes (Bld) [#/Vol] 2.2 10*3/uL Normal 1.00-4.8 [facility] Comment on above: Performed By: #### C BC, CMP, CUBLD #### [place] [address] [place] Lymphocytes/100 leukocytes i n Blood by Automated countOrdered By: Peter Veliz on 10-19-2023 Lymphocytes/100 WBC (Bld) 18.7 % Normal . [facility] Comment on above: Performed By: #### C CANDACE WADE CUBLD #### [address] MCH [Entitic mass] by Automa lisa countOrdered By: Peter Veliz on 10-19-2023 MCH (RBC) [Entitic mass] 31.9 pg Normal 24.7-34.3 [facility] Comment on above: Performed By: #### C CANDACE WADE CUBLD #### [address] MCHC Auto (RBC) [Mass/Vol]Or dered By: Peter Veliz on 10-19-2023 MCHC (RBC) [Mass/Vol] 34.0 g/dL 32.0-35.0 [facility] MCV [Entitic volume] by Auto mated countOrdered By: Peter Veliz on 10-19-2023 MCV (RBC) [Entitic vol] 93.6 fL Normal 80-100 [facility] Comment on above: Performed By: #### C CANDACE WADE CUBLD #### [address] Monocyte distribution width [Entitic volume] in Blood by AutomatedOrdered By: Peter Veliz on 10-19-2023 Monocyte distribution width Auto (Bld) [Entitic vol] 19.02 % 0.00-20.00 [facility] Mucus [Presence] in Urine by AutomatedOrdered By: Peter Veliz on 10-19-2023 Mucus Auto Ql (U) Rare [LPF] [facility] Neutrophils [#/volume] in Bl ood by Automated countOrdered By: Peetr Veliz on 10-19-2023 Neutrophils (Bld) [#/Vol] 8.3 10*3/uL High 1.8-7.7 [facility] Comment on above: Performed By: #### C CANDACE WADE, BETTYLD #### [address] Nitrite Test strip Ql (U)Ord ered By: Peter Veliz on 10-19-2023 Nitrite Ql (U) Negative Negative [facility] No Panel InformationOrdered By: Peter Veliz on 10-19-2023 Blood Gas Critical Value See comment [facility] Comment on above: Critical Value castro d on: 10/19/2023 at 12:39 Blood Gas Sample Site Venous Fir [facility] FiO2 21 % [facility] Venous Blood Base Excess -0.8 mmol/L -3.0-3.0 [facility] Venous Blood Oxygen Content 6.1 mmol/L Low 6.6-9.7 [facility] Venous Blood Oxygen Saturation 70.1 % Low 73.0-76.0 [facility] Venous Blood Partial Pressure CO2 38.6 mm[Hg] 38.0-50.0 [facility] Venous Blood Partial Pressure O2 34.7 mm[Hg] Low 35.0-45.0 [facility] Venous Blood pH 7.41 7.32-7.43 [facility] Estimated GFR (CKD-EPI) > 60.0 mL/Min [facility] Creatinine Clearance (Chem 115.17 [facility] Nucleated erythrocytes [Pres ence] in Blood by Automated countOrdered By: Peter Veliz on 10-19-2023 Nucleated RBC Auto Ql (Bld) 0.2 /100{WBC} 0-0.5 [facility] Platelet mean volume [Entiti c volume] in Blood by Automated countOrdered By: Peter Veliz on 10-19-2023 Platelet mean volume (Bld) [Entitic vol] 8.1 fL Normal 6.3-10.7 [facility] Comment on above: Performed By: #### C BC, CMP, CUBLD #### [facility] [address] [place] [address] [place] Platelets [#/volume] in Bloo d by Automated countOrdered By: Peter Veliz on 10-19-2023 Platelets (Bld) [#/Vol] 317 10*3/uL Normal 150-450 [facility] Comment on above: Performed By: #### C BC, CMP, CUBLD #### [facility] [address] [place] [address] [place] Potassium [Moles/volume] in Serum or PlasmaOrdered By: Peter Veliz on 10-19-2023 Potassium [Moles/Vol] 4.2 mmol/L Normal 3.5-5.1 [facility] Comment on above: Hemolysis is present at a level that could interfere with the result.Contact lab if redraw is required Result Comment: Hemo lysis is present at a level that could interfere with the result. Contact lab if redraw is required Performed By: #### C CANDACE WADE CUBLD #### [address] Protein [Mass/volume] in Ser um or PlasmaOrdered By: Peter Veliz on 10-19-2023 Protein [Mass/Vol] 7.4 g/dL Normal 6.4-8.9 [facility] Comment on above: Performed By: #### C CANDACE WADE CUBLD #### [address] Protein [Mass/volume] in Uri ne by Test stripOrdered By: Peter Veliz on 10-19-2023 Protein (U) [Mass/Vol] 20 mg/dL High Negative [facility] Comment on above: Order Comment: Name Collection Type:: Clean-Voided Midstream Performed By: #### A DDONUAPLUS #### [address] Serum globulin measurement b y calculation (mass/volume)Ordered By: Peter Veliz on 10-19-2023 Globulin (S) [Mass/Vol] 3.4 g/dL [facility] Comment on above: Performed By: #### C CANDACE WADE CUBLD #### [address] Serum or plasma albumin/glob ulin mass ratioOrdered By: Peter Veliz on 10-19-2023 Albumin/Globulin [Mass ratio] 1.2 {ratio} [facility] Comment on above: Performed By: #### C CANDACE WADE CUBLD #### [address] Serum or plasma anion gap de terminationOrdered By: Peter Veliz on 10-19-2023 Anion gap [Moles/Vol] 10.5 mmol/L Normal 6.0-15.0 [facility] Comment on above: Performed By: #### C CANDACE WADE, DEYVI #### [address] Sodium [Moles/volume] in Ser um or PlasmaOrdered By: Peter Veliz on 10-19-2023 Sodium [Moles/Vol] 139 mmol/L Normal 136-145 [facility] Comment on above: Performed By: #### C SHERI, CANDACE, DEYVI #### [address] Specific gravity Test strip (U) [Rel density]Ordered By: Peter Veliz on 10-19-2023 Specific gravity (U) [Rel density] 1.027 1.001-1.030 [facility] Urea nitrogen [Mass/volume] in Serum or PlasmaOrdered By: Peter Veliz on 10-19-2023 Urea nitrogen [Mass/Vol] 17 mg/dL Normal 7-25 [facility] Comment on above: Performed By: #### C CANDACE WADE, DEYVI #### [address] Urine appearanceOrdered By: Peter Veliz on 10-19-2023 Appearance (U) Clear Normal Clear [facility] Comment on above: Order Comment: Name Collection Type:: Clean-Voided Midstream Performed By: #### A DDONUAPLUS #### [address] Urobilinogen Test strip (U) [Mass/Vol]Ordered By: Peter Veliz on 10-19-2023 Urobilinogen (U) [Mass/Vol] Normal mg/dL Normal [facility] Venous Blood GasOrdered By: Peter Veliz on 10-19-2023 CO2 [Moles/Vol] 24.8 mmol/L Normal 24.0-29.0 [facility] Comment on above: Performed By: #### B MP, LIPASE, CBC, HEPATIC #### [address] HCO3 (Bld) [Moles/Vol] 23.6 mmol/L Normal 23.0-29.0 [facility] Comment on above: Performed By: #### B MP, LIPASE, CBC, HEPATIC #### [address] Venous Blood [place] Respiratory Critical Normal [facility] Group Comment on above: Result Comment: Crit ical Value called on: 10/19/2023 at 12:39 PERFORMED BY: [place] [address] PATHOLOGIST JOB RECRUITER JASON WILSON M.D. Performed By: #### B MP, LIPASE, CBC, HEPATIC #### [address] [facility] Base Excess -0.8 mmol/L Normal -3.0-3.0 [facility] Comment on above: Performed By: #### B MP, LIPASE, CBC, HEPATIC #### [address] [facility] Draw Site Venous Normal [facility] Comment on above: Performed By: #### B MP, LIPASE, CBC, HEPATIC #### [address] [facility] Frac Inspired O2 21 % Normal [facility] Comment on above: Performed By: #### B MP, LIPASE, CBC, HEPATIC #### [address] [facility] O2 Content 6.1 mmol/L Low 6.6-9.7 [facility] Comment on above: Performed By: #### B MP, LIPASE, CBC, HEPATIC #### [address] [facility] Oxygen Saturation 70.1 % Low 73.0-76.0 [facility] Comment on above: Performed By: #### B MP, LIPASE, CBC, HEPATIC #### [address] [facility] PCO2 38.6 mm[Hg] Normal 38.0-50.0 [facility] Comment on above: Performed By: #### B MP, LIPASE, CBC, HEPATIC #### [facility] [address] VBG PH Venous PH 7.41 Normal 7.32-7.43 [facility] Comment on above: Performed By: #### B MP, LIPASE, CBC, HEPATIC #### [facility] [address] [facility] PO2 34.7 mm[Hg] Low 35.0-45.0 [facility] Comment on above: Performed By: #### B MP, LIPASE, CBC, HEPATIC #### [facility] [address] XR chest 1V portableon 10-18 XR chest 1V portable [facility] [place] [address] [place] [address] XRay Report Signed Patient: Jerad Tracy MR#: [id number] 49 : 1975 Acct:[id number] Age/Sex: 48 / F ADM Date: 10/19/23 Loc: ER Room: Type: [facility] ER Attending Dr: Copies to: Peter Veliz MD Ordering Provider: Peter Veliz MD Date of Service: 10/19/23 XR/XR chest 1V portable: Weakness SINGLE VIEW CHEST CLINICAL HISTORY: Increasing weakness after spinal stimulator was removed 5 days ago. COMPARISON: Chest 10/05/2023 FINDINGS: Heart normal size. Lungs are clear. No free air. Remote deformity right clavicle. XR/XR chest 1V portable IMPRESSION: NO ACUTE FINDINGS Impression dictated by: Johan Velazquez Jr., D.OAdrien10/19/2023 12:21 PM Dictation Location: [place] [address] Transcribed By: [facility] 10/19/23 1221 Dictated By: Johan Velazquez Jr, DO 10/19/23 1219 Signed By: 10/19/23 1221 Normal [facility] pH of Urine by Test stripOrd ered By: Peter Veliz on 10-19-2023 pH (U) 6.5 [pH] Normal 5.0-9.0 [facility] Comment on above: Order Comment: Name Collection Type:: Clean-Voided Midstream Performed By: #### A DDONUAPLUS #### [facility] [address] CBC panel Auto (Bld)on 10-15 Erythrocyte distribution width (RBC) [Ratio] 13.3 % Normal 11.5-14.5 [facility] Comment on above: Performed By: #### 1 968-7 #### SHWETA ROCHA (31265) [facility] ([facility]) [address] [place] [address] 98085 Hematocrit (Bld) [Volume fraction] 39.7 % Normal 36.0-46.0 [facility] Comment on above: Performed By: #### 1 968-7 #### SHWETA ROCHA (39423) [facility] ([facility]) [address] [place] [address] 40360 Hemoglobin (Bld) [Mass/Vol] 12.8 g/dL Normal 12.0-16.0 [facility] Comment on above: Performed By: #### 1 968-7 #### SHWETA ROCHA (83194) [facility] ([facility]) [address] [place] [address] 91493 MCH (RBC) [Entitic mass] 30.8 pg Normal 26.0-34.0 [facility] Comment on above: Performed By: #### 1 968-7 #### SHWETA ROCHA (77333) [facility] ([facility]) [address] [place] [address] 90353 MCHC (RBC) [Mass/Vol] 32.2 g/dL Normal 32.0-36.0 [facility] Comment on above: Performed By: #### 1 968-7 #### SHWETA ROCHA (08484) [facility] ([facility]) [address] [place] [address] 25692 MCV (RBC) [Entitic vol] 96 fL Normal 80-100 [facility] Comment on above: Performed By: #### 1 968-7 #### SHWETA ROCHA (11806) [facility] ([facility]) [address] [place] [address] 87754 Nucleated RBC/100 WBC (Bld) [Ratio] 0.0 /100 WBCs Normal 0.0-0.0 [facility] Comment on above: Performed By: #### 1 968-7 #### SHWETA ROCHA (21764) [facility] ([facility]) [address] [place] [address] 02677 Platelets (Bld) [#/Vol] 268 x10*3/uL Normal 150-450 [facility] Comment on above: Performed By: #### 1 968-7 #### SHWETA ROCHA (64824) [facility] ([facility]) [address] [place] [address] 59233 RBC (Bld) [#/Vol] 4.15 x10*6/uL Normal 4.00-5.20 [facility] Comment on above: Performed By: #### 1 968-7 #### SHWETA ROCHA (86625) [facility] ([facility]) [address] [place] [address] 48021 WBC (Bld) [#/Vol] 6.6 x10*3/uL Normal 4.4-11.3 [facility] Comment on above: Performed By: #### 1 968-7 #### SHWETA ROCHA (75020) [facility]) [address] [place] [address] 86295 Renal function 2000 panelon 10-16-2023 Albumin BCP dye [Mass/Vol] 3.7 g/dL Normal 3.4-5.0 [facility] Comment on above: Performed By: #### 1 968-7 #### SHWETA ROCHA (99439) [facility]) [address] [place] [address] 47417 Anion gap [Moles/Vol] 11 mmol/L Normal 10-20 [facility] Comment on above: Performed By: #### 1 968-7 #### SHWETA BARNETT RIO KEY (74889) [facility]) [address] [place] [address] Calcium [Mass/Vol] 8.1 mg/dL Low 8.6-10.6 [facility] Comment on above: Performed By: #### 1 968-7 #### BEATRIZIBELIGANESH ROCHA (84224) [facility] ([facility]) [address] [place] [address] 48901 Chloride [Moles/Vol] 100 mmol/L Normal 98-107 [facility] Comment on above: Performed By: #### 1 968-7 #### SHWETA ROCHA (16189) [facility]) [address] [place] [address] 87303 CO2 [Moles/Vol] 30 mmol/L Normal 21-32 [facility] Comment on above: Performed By: #### 1 968-7 #### SHWETA BARNETT RIO KEY (59913) [facility]) [address] [place] [address] 90698 Creatinine [Mass/Vol] 0.62 mg/dL Normal 0.50-1.05 [facility] Comment on above: Performed By: #### 1 968-7 #### SHWETA BARNETT RIO KEY (09752) [facility]) [address] [place] [address] 70446 GFR/1.73 sq M.predicted MDRD (S/P/Bld) [Vol rate/Area] mL/min/{1.73_m2} Normal >60 [facility] Comment on above: Result Comment: Calc ulations of estimated GFR are performed using the 2020 CKD-EPI Study Refit equation without the race variable for the IDMS-Traceable creatinine methods. https://jasn.asnjournals.org/content//ASN.13748 12102 Performed By: #### 1 968-7 #### SHWETA ROCHA (00255) [facility]) [address] [place] [address] 51486 Glucose [Mass/Vol] 86 mg/dL Normal 74-99 [facility] Comment on above: Performed By: #### 1 968-7 #### SHWETA ERICKA MACKEY (99094) [facility] ([facility]) [address] [place] [address] 52386 Phosphate [Mass/Vol] 3.6 mg/dL Normal 2.5-4.9 [facility] Comment on above: Result Comment: The performance characteristics of phosphorus testing in heparinized plasma have been validated by the individual laboratory site where testing is performed. Testing on heparinized plasma is not approved by the FDA; however, such approval is not necessary. Performed By: #### 1 968-7 #### SHWETA BARNETT RUBEN MACKEY (75887) [facility] ([facility]) [address] [place] [address] 64460 Potassium [Moles/Vol] 4.3 mmol/L Normal 3.5-5.3 [facility] Comment on above: Performed By: #### 1 968-7 #### SHWETA ERICKA MACKEY (07056) [facility] ([facility]) [address] [place] [address] 95210 Sodium [Moles/Vol] 137 mmol/L Normal 136-145 [facility] Comment on above: Performed By: #### 1 968-7 #### SHWETA ERICKA MACKEY (48177) [facility]) [address] [place] [address] 64912 Urea nitrogen [Mass/Vol] 16 mg/dL Normal 6-23 [facility] Comment on above: Performed By: #### 1 968-7 #### SHWETA ERICKA MACKEY (06234) [facility]) [address] [place] [address] 03331 CBC panel Auto (Bld)on 10-14 Erythrocyte distribution width (RBC) [Ratio] 13.0 % Normal 11.5-14.5 [facility] Comment on above: Order Comment: After transfusion completed. Performed By: #### 1 968-7 #### SHWETA ROCHA (74828) [facility]) [address] [place] [address] 84712 Hematocrit (Bld) [Volume fraction] 36.2 % Normal 36.0-46.0 [facility] Comment on above: Order Comment: After transfusion completed. Performed By: #### 1 968-7 #### SHWETA ROCHA (90282) [facility]) [address] [place] [address] 80763 Hemoglobin (Bld) [Mass/Vol] 12.4 g/dL Normal 12.0-16.0 [facility] Comment on above: Order Comment: After transfusion completed. Performed By: #### 1 968-7 #### SHWETA ROCHA (38599) [facility] [address] [place] [address] 49492 MCH (RBC) [Entitic mass] 31.5 pg Normal 26.0-34.0 [facility] Comment on above: Order Comment: After transfusion completed. Performed By: #### 1 968-7 #### SHWETA ROCHA (94456) [facility]) [address] [place] [address] 23911 MCHC (RBC) [Mass/Vol] 34.3 g/dL Normal 32.0-36.0 [facility] Comment on above: Order Comment: After transfusion completed. Performed By: #### 1 968-7 #### SHWETA ROCHA (25491) [facility]) [address] [place] [address] 39657 MCV (RBC) [Entitic vol] 92 fL Normal 80-100 [facility] Comment on above: Order Comment: After transfusion completed. Performed By: #### 1 968-7 #### SHWETA ROCHA (56515) [facility]) [address] [place] [address] 23972 Nucleated RBC/100 WBC (Bld) [Ratio] 0.0 /100 WBCs Normal 0.0-0.0 [facility] Comment on above: Order Comment: After transfusion completed. Performed By: #### 1 968-7 #### SHWETA ROCHA (54278) [facility] ([facility]) [address] [place] [address] 27320 Platelets (Bld) [#/Vol] 261 x10*3/uL Normal 150-450 [facility] Comment on above: Order Comment: After transfusion completed. Performed By: #### 1 968-7 #### SHWETA ROCHA (28870) [facility] ([facility] [address] [place] [address] 63017 RBC (Bld) [#/Vol] 3.94 x10*6/uL Low 4.00-5.20 [facility] Comment on above: Order Comment: After transfusion completed. Performed By: #### 1 968-7 #### SHWETA ROCHA (52007) [facility] ([facility]) [address] [place] [address] 85685 WBC (Bld) [#/Vol] 10.8 x10*3/uL Normal 4.4-11.3 [facility] Comment on above: Order Comment: After transfusion completed. Performed By: #### 1 968-7 #### SHWETA BARNETT RIO KEY (35231) [facility] ([facility]) [address] [place] [address] 22176 Vancomycinon 10-15-2023 Vancomycin [Mass/Vol] 17.4 ug/mL Normal 5.0-20.0 [facility] Comment on above: Order Comment: Vanco mycin levels can be monitored according to area under the curve (AUC) or concentration (ug/mL). The preferred monitoring strategy is determined by the patient's renal function and indication for therapy.For AUC monitoring, a random vancomycin level should be interpreted in the context of AUC rather than the concentration at a single point in time.For concentration monitoring, a trough concentration drawn immediately prior to the next dose is preferred.Therapeutic ranges using concentration-guided results:Peak (all ages): 30.0-40.0 ug/mLTrough (all ages): 10.0-20.0 ug/mL Performed By: #### 1 968-7 #### SHWETA ROCHA (10895) [facility] ([facility]) [address] [place] [address] Bacteria identifiedon 2023 Bacteria identified Cx Nom (Unsp spec) Test: Tissue/Wound Culture/Smear Specimen Source: HARDWARE Specimen Type: Swab Specimen Date: 10/14/20231435 Result Date: 10/16/20231012 Result Status: Final result Resulting Lab: [facility] [address] [place] [address] CULTURE No growth aerobically and anaerobically STAIN (1+) Rare Polymorphonuclear leukocytes No organisms seen Normal [facility] Comment on above: Performed By: #### 1 968-7 #### SHWETA ROCHA (06671) [facility] ([facility] [address] [place] [address] Bacteria identified Cx Nom (Unsp spec) Test: Tissue/Wound Culture/Smear Specimen Source: HARDWARE Specimen Type: Swab Specimen Date: 10/14/20231434 Result Date: 10/16/20231012 Result Status: Final result Resulting Lab: [facility] [address] [place] [address] CULTURE No growth aerobically and anaerobically STAIN No polymorphonuclear leukocytes seen No organisms seen Normal [facility] Comment on above: Performed By: #### 1 968-7 #### SHWETA ROCAH (65939) [facility] ([facility]) [address] [place] [address] Bacteria identified Cx Nom (Unsp spec) Test: Tissue/Wound Culture/Smear Specimen Source: VERTEBRAL BIOPSY Specimen Type: Swab Specimen Date: 10/14/20231419 Result Date: 10/16/20231007 Result Status: Final result Resulting Lab: [facility] [address] [place] [address] CULTURE No growth aerobically and anaerobically STAIN (1+) Rare Polymorphonuclear leukocytes No organisms seen Normal [facility] Comment on above: Performed By: #### 1 774-6 #### SHWETA ROCHA (35254) [facility] ([facility] [address] [place] [address] Bacteria identified Cx Nom (Unsp spec) Test: Tissue/Wound Culture/Smear Specimen Source: VERTEBRAL BIOPSY Specimen Type: Swab Specimen Date: 10/14/20231409 Result Date: 10/16/20231007 Result Status: Final result Resulting Lab: [facility] [address] [place] [address] CULTURE No growth aerobically and anaerobically STAIN No polymorphonuclear leukocytes seen No organisms seen Normal [facility] Comment on above: Performed By: #### 1 645-9 #### SHWETA ROCHA (15566) [facility] ([facility]) [address] [place] [address] Bacteria identified Cx Nom (Unsp spec) Test: Tissue/Wound Culture/Smear Specimen Source: VERTEBRAL BIOPSY Specimen Type: Swab Specimen Date: 10/14/20231408 Result Date: 10/16/20231007 Result Status: Final result Resulting Lab: [facility] [address] [place] [address] CULTURE No growth aerobically and anaerobically STAIN No polymorphonuclear leukocytes seen No organisms seen Normal [facility] Comment on above: Performed By: #### 1 929-1 #### SHWETA ROCHA (25183) [facility] ([facility]) [address] [place] [address] Blood type and Indirect anti body screen panel (Bld)on 10-13-2023 ABO group Nom (Bld) O Normal [facility] Comment on above: Performed By: #### 2 4323-8 #### SHWETA ROCHA (15409) [facility] ([facility]) [address] [place] [address] Blood group antibody screen Ql Negative [facility] Comment on above: Performed By: #### 2 4323-8 #### SHWETA ROCHA (24060) [facility] ([facility]) [address] [place] [address] D Ag Ql (Bld) Positive [facility] Comment on above: Performed By: #### 2 4323-8 #### SHWETA ROCHA (21711) [facility] ([facility]) [address] [place] [address] CBC panel Auto (Bld)on 10-12 Erythrocyte distribution width (RBC) [Ratio] 12.9 % Normal 11.5-14.5 [facility] Comment on above: Performed By: #### 2 4323-8 #### SHWETA ROCHA (38582) [facility] ([facility] [address] [place] [address] Hematocrit (Bld) [Volume fraction] 38.9 % Normal 36.0-46.0 [facility] Comment on above: Performed By: #### 2 4323-8 #### SHWETA ROCHA (96115) [facility] ([facility]) [address] [place] [address] Hemoglobin (Bld) [Mass/Vol] 12.7 g/dL Normal 12.0-16.0 [facility] Comment on above: Performed By: #### 2 4323-8 #### SHWETA ROCHA (20592) [facility] ([facility]) [address] [place] [address] 75622 MCH (RBC) [Entitic mass] 30.4 pg Normal 26.0-34.0 [facility] Comment on above: Performed By: #### 2 4323-8 #### SHWETA ROCHA (72038) [facility] ([facility]) [address] [place] [address] 91210 MCHC (RBC) [Mass/Vol] 32.6 g/dL Normal 32.0-36.0 [facility] Comment on above: Performed By: #### 2 4323-8 #### SHWETA ROCHA (24563) [facility] ([facility] [address] [place] [address] MCV (RBC) [Entitic vol] 93 fL Normal 80-100 [facility] Comment on above: Performed By: #### 2 4323-8 #### SHWETA ROCHA (35461) [facility] ([facility]) [address] [place] [address] 71190 Nucleated RBC/100 WBC (Bld) [Ratio] 0.0 /100 WBCs Normal 0.0-0.0 [facility] Comment on above: Performed By: #### 2 4323-8 #### SHWETA ROCHA (14350) [facility] ([facility]) [address] [place] [address] 01762 Platelets (Bld) [#/Vol] 293 x10*3/uL Normal 150-450 [facility] Comment on above: Performed By: #### 2 4323-8 #### SHWETA ROCHA (98943) [facility] ([facility]) [address] [place] [address] 37681 RBC (Bld) [#/Vol] 4.18 x10*6/uL Normal 4.00-5.20 [facility] Comment on above: Performed By: #### 2 4323-8 #### SHWETA ROCHA (88942) [facility] ([facility]) [address] [place] [address] 13933 WBC (Bld) [#/Vol] 5.5 x10*3/uL Normal 4.4-11.3 [facility] Comment on above: Performed By: #### 2 4323-8 #### SHWETA ROCHA (63393) [facility] ([facility]) [address] [place] [address] 09061 HCG ( test) IA.rapi d Ql (U)on 10-13-2023 HCG ( test) Ql (U) Negative Normal NEGATIVE [facility] Comment on above: Performed By: #### 2 4323-8 #### SHWETA ROCHA (64304) [facility] ([facility] [address] [place] [address] 62992 PT and aPTT panel Coag (PPP) on 10-13-2023 aPTT Coag (PPP) [Time] 28 s Normal 27-38 [facility] Comment on above: Order Comment: The A PTT is no longer used for monitoring Unfractionated Heparin Therapy. For monitoring Heparin Therapy, use the Heparin Assay. Performed By: #### 2 4323-8 #### SHWETA ROCHA (36499) [facility] ([facility] [address] [place] [address] 86891 INR Coag (PPP) [Relative time] 1.0 Normal 0.9-1.1 [facility] Comment on above: Order Comment: The A PTT is no longer used for monitoring Unfractionated Heparin Therapy. For monitoring Heparin Therapy, use the Heparin Assay. Performed By: #### 2 4323-8 #### SHWETA ROCHA (18123) [facility] ([facility]) [address] [place] [address] 88438 PT Coag (PPP) [Time] 10.9 s Normal 9.8-12.8 [facility] Comment on above: Order Comment: The A PTT is no longer used for monitoring Unfractionated Heparin Therapy. For monitoring Heparin Therapy, use the Heparin Assay. Performed By: #### 2 4323-8 #### SHWETA ROCHA (70796) [facility]) [address] [place] [address] 88083 Renal function 2000 panelon 10-13-2023 Albumin BCP dye [Mass/Vol] 3.6 g/dL Normal 3.4-5.0 [facility] Comment on above: Performed By: #### 2 4323-8 #### BEATRIZIBRENE ROCHA (03385) [facility] ([facility]) [address] [place] [address] 44890 Anion gap [Moles/Vol] 14 mmol/L Normal 10-20 [facility] Comment on above: Performed By: #### 2 4323-8 #### BEATRIZIBRENE ROCHA (30821) [facility] ([facility]) [address] [place] [address] 50666 Calcium [Mass/Vol] 8.0 mg/dL Low 8.6-10.6 [facility] Comment on above: Performed By: #### 2 4323-8 #### BEATRIZIBELIGANESH ROCHA (11369) [facility] ([facility]) [address] [place] [address] 10310 Chloride [Moles/Vol] 104 mmol/L Normal 98-107 [facility] Comment on above: Performed By: #### 2 4323-8 #### BEATRIZIBRENE ROCHA (33167) [facility] ([facility]) [address] [place] [address] 18134 CO2 [Moles/Vol] 24 mmol/L Normal 21-32 [facility] Comment on above: Performed By: #### 2 4323-8 #### ANAIBELIGANESH ADAMA KEY (14536) [facility] ([facility]) [address] [place] [address] 49555 Creatinine [Mass/Vol] 0.70 mg/dL Normal 0.50-1.05 [facility] Comment on above: Performed By: #### 2 4323-8 #### ANAIBELIGANESH ADAMA KEY (46421) [facility] ([facility]) [address] [place] [address] 22947 GFR/1.73 sq M.predicted MDRD (S/P/Bld) [Vol rate/Area] mL/min/{1.73_m2} Normal >60 [facility] Comment on above: Result Comment: Calc ulations of estimated GFR are performed using the 2020 CKD-EPI Study Refit equation without the race variable for the IDMS-Traceable creatinine methods. https://jasn.asnjournals.org/content//ASN.85497 13515 Performed By: #### 2 4323-8 #### SHWEAT ROCHA (86749) [facility] ([facility]) [address] [place] [address] 83206 Glucose [Mass/Vol] 129 mg/dL High 74-99 [facility] Comment on above: Performed By: #### 2 4323-8 #### SHWETA ROCHA (36694) [facility] ([facility]) [address] [place] [address] 04181 Phosphate [Mass/Vol] 2.2 mg/dL Low 2.5-4.9 [facility] Comment on above: Result Comment: The performance characteristics of phosphorus testing in heparinized plasma have been validated by the individual laboratory site where testing is performed. Testing on heparinized plasma is not approved by the FDA; however, such approval is not necessary. Performed By: #### 2 4323-8 #### SHWETA ROCHA (09142) [facility] ([facility]) [address] [place] [address] 94811 Potassium [Moles/Vol] 3.7 mmol/L Normal 3.5-5.3 [facility] Comment on above: Performed By: #### 2 4323-8 #### SHWETA ROCHA (35765) [facility] ([facility]) [address] [place] [address] 97232 Sodium [Moles/Vol] 138 mmol/L Normal 136-145 [facility] Comment on above: Performed By: #### 2 4323-8 #### SHWETA ROCHA (45566) [facility]) [address] [place] [address] 07133 Urea nitrogen [Mass/Vol] 12 mg/dL Normal 6-23 [facility] Comment on above: Performed By: #### 2 4323-8 #### SHWETA ROCHA (87749) [facility]) [address] [place] [address] 22677 Urinalysis complete panel (U )on 10-13-2023 Appearance (U) Clear Normal Clear [facility] Comment on above: Performed By: #### 2 4323-8 #### SHWETA ROCHA ([id number]) [facility] ([facility]) [address] [place] [address] [id number] Bilirubin (U) [Mass/Vol] Negative Normal NEGATIVE [facility] Comment on above: Performed By: #### 2 4323-8 #### SHWETA ROCHA ([id number]) [facility] ([facility]) [address] [place] [id number] Color (U) Light-Yellow Normal Light-Yellow , Yellow, Dark-Yellow [facility] Comment on above: Performed By: #### 2 4323-8 #### SHWETA ROCHA ([id number]) [facility] ([facility]) [address] [place] [id number] Glucose Auto test strip (U) [Mass/Vol] Normal Normal Normal [facility] Comment on above: Performed By: #### 2 4323-8 #### SHWETA ROCHA ([id number]) [facility] ([facility]) [address] [place] [address] 05494 Ketones (U) [Mass/Vol] TRACE Abnormal NEGATIVE [facility] Comment on above: Performed By: #### 2 4323-8 #### SHWETA ROCHA ([id number]) [facility] ([facility]) [address] [place] [address] 93370 Leukocyte esterase Auto test strip Ql (U) Negative Normal NEGATIVE [facility] Comment on above: Performed By: #### 2 4323-8 #### SHWETA ROCHA ([id number]) [facility] ([facility]) [address] [place] [address] 28922 Nitrite Auto test strip Ql (U) Negative Normal NEGATIVE [facility] Comment on above: Performed By: #### 2 4323-8 #### SHWETA ROCHA ([id number]) [facility] ([facility]) [address] [place] [address] 03462 pH (U) 6.5 [pH] Normal 5.0, 5.5, 6.0, 6.5, 7.0, 7.5, 8.0 [facility] Comment on above: Performed By: #### 2 4323-8 #### SHWETA ROCHA ([id number]) [facility] ([facility]) [address] [place] [address] 73736 Protein (U) [Mass/Vol] Negative Normal NEGAT ALEXANDRE, 10 (TRACE), 20 (TRACE) [facility] Comment on above: Performed By: #### 2 4323-8 #### SHWETA ROCHA ([id number]) [facility] ([facility]) [address] [place] [address] 01823 RBC (U) [#/Vol] Negative Normal NEGATIVE [facility] Comment on above: Performed By: #### 2 4323-8 #### SHWETA ROCHA ([id number]) [facility] ([facility]) [address] [place] [address] 14957 Specific gravity (U) [Rel density] 1.016 Normal 1.005-1.035 [facility] Comment on above: Performed By: #### 2 4323-8 #### SHWETA ROCHA ([id number]) [facility] ([facility]) [address] [place] [address] 32346 Urobilinogen (U) [Mass/Vol] Normal Normal Normal [facility] Comment on above: Performed By: #### 2 4323-8 #### SHWETA ROCHA ([id number]) [facility] ([facility]) [address] [place] [address] Vancomycinon 10-13-2023 Vancomycin [Mass/Vol] 15.8 ug/mL Normal 5.0-20.0 [facility] Comment on above: Order Comment: Vanco mycin levels can be monitored according to area under the curve (AUC) or concentration (ug/mL). The preferred monitoring strategy is determined by the patient's renal function and indication for therapy.For AUC monitoring, a random vancomycin level should be interpreted in the context of AUC rather than the concentration at a single point in time.For concentration monitoring, a trough concentration drawn immediately prior to the next dose is preferred.Therapeutic ranges using concentration-guided results:Peak (all ages): 30.0-40.0 ug/mLTrough (all ages): 10.0-20.0 ug/mL Performed By: #### 2 4323-8 #### SHWETA ROCHA ([id number]) [facility] ([facility] [address] [place] [address] PICC >5 YR BEDSIDE IMAGINGon 10-12-2023 PICC >5 YR BEDSIDE IMAGING These images are not reportable by radiology and will not be interpreted by Radiologists. [facility] Vancomycinon 10-12-2023 Vancomycin [Mass/Vol] 4.7 ug/mL Low 5.0-20.0 [facility] Comment on above: Order Comment: Vanco mycin levels can be monitored according to area under the curve (AUC) or concentration (ug/mL). The preferred monitoring strategy is determined by the patient's renal function and indication for therapy.For AUC monitoring, a random vancomycin level should be interpreted in the context of AUC rather than the concentration at a single point in time.For concentration monitoring, a trough concentration drawn immediately prior to the next dose is preferred.Therapeutic ranges using concentration-guided results:Peak (all ages): 30.0-40.0 ug/mLTrough (all ages): 10.0-20.0 ug/mL Performed By: #### 2 4323-8 #### SHWETA ROCHA ([id number]) [facility] ([facility]) [address] [place], [place] [id number] Blood type and Indirect anti body screen panel (Bld)on 10-11-2023 ABO group Nom (Bld) O Normal [facility] Comment on above: Performed By: #### 2 4323-8 #### SHWETA ROCHA ([id number]) [facility] ([facility]) [address] [place] [address] 79873 Blood group antibody screen Ql Negative Normal [facility] Comment on above: Performed By: #### 2 4323-8 #### SHWETA ROCHA ([id number]) [facility] ([facility]) [address] [place] [address] 65804 D Ag Ql (Bld) Positive Normal [facility] Comment on above: Performed By: #### 2 4323-8 #### SHWETA ROCHA ([id number]) [facility] ([facility]) [address] [place] [address] 98137 C reactive proteinon 024 CRP [Mass/Vol] 1.04 mg/dL High <1.00 [facility] Comment on above: Performed By: #### 5 6888-1 #### JOLENE Cantu ([id number]) [facility] ([facility]) [id number] [place] [address] 24067 CBC W Auto Differential pane l (Bld)on 10-11-2023 Basophils (Bld) [#/Vol] 0.03 x10*3/uL Normal 0.00-0.10 [facility] Comment on above: Performed By: #### 5 6888-1 #### JOLENE Cantu ([id number]) [facility] ([facility]) [id number] [place] [address] 95399 Basophils/100 WBC (Bld) 0.3 % Normal 0.0-2.0 [facility] Comment on above: Performed By: #### 5 6888-1 #### JOLENE Cantu ([id number]) [facility] ([facility]) [address] [place] [address] 75104 Eosinophils (Bld) [#/Vol] 0.27 x10*3/uL Normal 0.00-0.70 [facility] Comment on above: Performed By: #### 5 6888-1 #### JOLENE Cantu (88751) [facility] ([facility]) [address] [place] [address] 24038 Eosinophils/100 WBC (Bld) 2.4 % Normal 0.0-6.0 [facility] Comment on above: Performed By: #### 5 6888-1 #### JOLENE Cantu ([id number]) [facility] ([facility]) [address] [place] [address] 46052 Erythrocyte distribution width (RBC) [Ratio] 12.9 % Normal 11.5-14.5 [facility] Comment on above: Performed By: #### 5 6888-1 #### JOLENE Cantu ([id number]) [facility] ([facility]) [address] [place] [address] 47130 Hematocrit (Bld) [Volume fraction] 39.2 % Normal 36.0-46.0 [facility] Comment on above: Performed By: #### 5 6888-1 #### JOLENE Cantu ([id number]) [facility] ([facility]) [address] [place] [address] 29357 Hemoglobin (Bld) [Mass/Vol] 13.6 g/dL Normal 12.0-16.0 [facility] Comment on above: Performed By: #### 5 6888-1 #### JOLENE Cantu ([id number]) [facility] ([facility]) [address] [place] [address] 32182 Immature granulocytes (Bld) [#/Vol] 0.05 x10*3/uL Normal 0.00-0.70 [facility] Comment on above: Performed By: #### 5 6888-1 #### JOLENE Cantu ([id number]) [facility] ([facility]) [address] [place] [address] 13886 Immature granulocytes/100 WBC (Bld) 0.4 % Normal 0.0-0.9 [facility] Comment on above: Result Comment: Aspen ture Granulocyte Count (IG) includes promyelocytes, myelocytes and metamyelocytes but does not include bands. Percent differential counts (%) should be interpreted in the context of the absolute cell counts (cells/UL). Performed By: #### 5 6888-1 #### JOLENE Cantu ([id number]) [facility] ([facility]) [address] [place] [address] Lymphocytes (Bld) [#/Vol] 2.27 x10*3/uL Normal 1.20-4.80 [facility] Comment on above: Performed By: #### 5 6888-1 #### JOLENE Cantu ([id number]) [facility] ([facility]) [address] [place] [address] 28276 Lymphocytes/100 WBC (Bld) 19.9 % Normal 13.0-44.0 [facility] Comment on above: Performed By: #### 5 6888-1 #### JOLENE Cantu ([id number]) [facility] ([facility]) [address] [place] [address] MCH (RBC) [Entitic mass] 31.0 pg Normal 26.0-34.0 [facility] Comment on above: Performed By: #### 5 6888-1 #### JOLENE Cantu ([id number]) [facility] ([facility]) [address] [place] [address] MCHC (RBC) [Mass/Vol] 34.7 g/dL Normal 32.0-36.0 [facility] Comment on above: Performed By: #### 5 6888-1 #### JOLENE Cantu (43513) [facility] ([facility]) [address] [place] [address] MCV (RBC) [Entitic vol] 89 fL Normal 80-100 [facility] Comment on above: Performed By: #### 5 6888-1 #### JOLENE Cantu ([id number]) [facility] ([facility]) [address] [place] [address] Monocytes (Bld) [#/Vol] 0.77 x10*3/uL Normal 0.10-1.00 [facility] Comment on above: Performed By: #### 5 6888-1 #### JOLENE Cantu (48320) [facility] ([facility]) [address] [place] [address] 83992 Monocytes/100 WBC (Bld) 6.8 % Normal 2.0-10.0 [facility] Comment on above: Performed By: #### 5 6888-1 #### JOLENE Cantu ([id number]) [facility] ([facility]) [address] [place] [address] 62427 Neutrophils (Bld) [#/Vol] 8.01 x10*3/uL High 1.20-7.70 [facility] Comment on above: Result Comment: Perc ent differential counts (%) should be interpreted in the context of the absolute cell counts (cells/uL). Performed By: #### 5 6888-1 #### JOLENE Cantu ([id number]) [facility] ([facility]) [address] [place] [address] 12027 Neutrophils/100 WBC (Bld) 70.2 % Normal 40.0-80.0 [facility] Comment on above: Performed By: #### 5 6888-1 #### JOLENE Cantu (26035) [facility] ([facility]) [address] [place] [address] 97606 Nucleated RBC/100 WBC (Bld) [Ratio] 0.0 /100 WBCs Normal 0.0-0.0 [facility] Comment on above: Performed By: #### 5 6888-1 #### JOLENE Cantu ([id number]) [facility] ([facility]) [address] [place] [address] Platelets (Bld) [#/Vol] 371 x10*3/uL Normal 150-450 [facility] Comment on above: Performed By: #### 5 6888-1 #### JOLENE Cantu ([id number]) [facility] ([facility]) [address] [place] [address] RBC (Bld) [#/Vol] 4.39 x10*6/uL Normal 4.00-5.20 [facility] Comment on above: Performed By: #### 5 6888-1 #### JOLENE Cantu ([id number]) [facility] ([facility]) [address] [place] [address] 70061 WBC (Bld) [#/Vol] 11.4 x10*3/uL High 4.4-11.3 [facility] Comment on above: Performed By: #### 5 6888-1 #### JOLENE Cantu ([id number]) [facility] ([facility]) [address] [place] [address] 63706 CBC panel Auto (Bld)on 10-10 Erythrocyte distribution width (RBC) [Ratio] 13.0 % Normal 11.5-14.5 [facility] Comment on above: Performed By: #### 5 6888-1 #### JOLENE Cantu ([id number]) [facility] ([facility]) [address] [place] [address] 76644 Hematocrit (Bld) [Volume fraction] 38.2 % Normal 36.0-46.0 [facility] Comment on above: Performed By: #### 5 6888-1 #### JOLENE Cantu ([id number]) [facility] ([facility]) [address] [place] [address] 94418 Hemoglobin (Bld) [Mass/Vol] 12.5 g/dL Normal 12.0-16.0 [facility] Comment on above: Performed By: #### 5 6888-1 #### JOLENE Cantu (32253) [facility] ([facility]) [address] [place] [address] 00254 MCH (RBC) [Entitic mass] 30.3 pg Normal 26.0-34.0 [facility] Comment on above: Performed By: #### 5 6888-1 #### JOLENE Cantu (90687) [facility] ([facility]) [address] [place] [address] 18063 MCHC (RBC) [Mass/Vol] 32.7 g/dL Normal 32.0-36.0 [facility] Comment on above: Performed By: #### 5 6888-1 #### JOLENE Cantu ([id number]) [facility] ([facility]) [id number] [place] [address] 51406 MCV (RBC) [Entitic vol] 93 fL Normal 80-100 [facility] Comment on above: Performed By: #### 5 6888-1 #### JOLENE Cantu ([id number]) [facility] ([facility]) [address] [place] [address] 97751 Nucleated RBC/100 WBC (Bld) [Ratio] 0.0 /100 WBCs Normal 0.0-0.0 [facility] Comment on above: Performed By: #### 5 6888-1 #### JOLENE Cantu ([id number]) [facility] ([facility]) [address] [place] [address] 30527 Platelets (Bld) [#/Vol] 353 x10*3/uL Normal 150-450 [facility] Comment on above: Performed By: #### 5 6888-1 #### JOLENE Cantu ([id number]) [facility] ([facility]) [address] [place] [address] 65153 RBC (Bld) [#/Vol] 4.13 x10*6/uL Normal 4.00-5.20 [facility] Comment on above: Performed By: #### 5 6888-1 #### JOLENE Canut ([id number]) [facility] ([facility]) [address] [place] [address] 71156 WBC (Bld) [#/Vol] 10.4 x10*3/uL Normal 4.4-11.3 [facility] Comment on above: Performed By: #### 5 6888-1 #### JOLENE Cantu (24566) [facility] ([facility]) [address] [place] [address] 12196 Coagulation surface inducedo n 07-19-2024 aPTT Coag (PPP) [Time] 33 s Normal 27-38 [facility] Comment on above: Order Comment: HIV A g/Ab screen is performed using the Siemens Atell[employer] HIV Ag/Ab Combo assay which detects the presence of HIV p24 antigen as well as antibodies to HIV-1 (Group M and O) and HIV-2. No laboratory evidence of HIV infection. If acute HIV infection is suspected, consider testing for HIV RNA by PCR (viral load). Performed By: #### 5 6888-1 #### JOLENE Cantu ([id number]) [facility] ([facility]) [address] [place] [address] 53380 Coagulation tissue factor in ducedon 10-11-2023 PT Coag (PPP) [Time] 10.4 s Normal 9.8-12.8 [facility] Comment on above: Performed By: #### 5 6888-1 #### JOLENE Cantu (69296) [facility] ([facility]) [id number] [place] [address] 88741 Comprehensive metabolic 2000 panelon 10-11-2023 Albumin BCP dye [Mass/Vol] 4.1 g/dL Normal 3.4-5.0 [facility] Comment on above: Performed By: #### 5 6888-1 #### JOLENE Cantu ([id number]) [facility] ([facility]) [address] [place] [address] 77425 ALP [Catalytic activity/Vol] 88 U/L Normal 33-110 [facility] Comment on above: Performed By: #### 5 6888-1 #### JOLENE Cantu (90753) [facility] ([facility]) [address] [place] [address] 72381 ALT With P-5'-P [Catalytic activity/Vol] 15 U/L Normal 7-45 [facility] Comment on above: Result Comment: Katia ents treated with Sulfasalazine may generate falsely decreased results for ALT. Performed By: #### 5 6888-1 #### JOLENE Cantu ([id number]) [facility] ([facility]) [address] [place] [address] 23225 Anion gap [Moles/Vol] 12 mmol/L Normal 10-20 [facility] Comment on above: Performed By: #### 5 6888-1 #### JOLENE Cantu ([id number]) [facility] ([facility]) [address] [place] [address] AST With P-5'-P [Catalytic activity/Vol] 16 U/L Normal 9-39 [facility] Comment on above: Performed By: #### 5 6888-1 #### JOLENE Cantu ([id number]) [facility] ([facility]) [address] [place] [address] 35465 Bilirubin [Mass/Vol] 0.3 mg/dL Normal 0.0-1.2 [facility] Comment on above: Performed By: #### 5 6888-1 #### JOLENE Cantu (74895) [facility] ([facility]) [address] [place] [address] 71911 Calcium [Mass/Vol] 8.5 mg/dL Low 8.6-10.6 [facility] Comment on above: Performed By: #### 5 6888-1 #### JOLENE Cantu ([id number]) [facility] ([facility]) [address] [place] [address] 41095 Chloride [Moles/Vol] 102 mmol/L Normal 98-107 [facility] Comment on above: Performed By: #### 5 6888-1 #### JOLENE Cantu ([id number]) [facility] ([facility]) [address] [place] [address] 28212 CO2 [Moles/Vol] 27 mmol/L Normal 21-32 [facility] Comment on above: Performed By: #### 5 6888-1 #### JOLENE Cantu (05124) [facility] ([facility]) [id number] [place] [address] 77251 Creatinine [Mass/Vol] 0.77 mg/dL Normal 0.50-1.05 [facility] Comment on above: Performed By: #### 5 6888-1 #### JOLENE Cantu ([id number]) [facility] ([facility]) [address] [place] [address] GFR/1.73 sq M.predicted MDRD (S/P/Bld) [Vol rate/Area] mL/min/{1.73_m2} Normal >60 [facility] Comment on above: Result Comment: Calc ulations of estimated GFR are performed using the 2020 CKD-EPI Study Refit equation without the race variable for the IDMS-Traceable creatinine methods. https://jasn.asnjournals.org/content/early//ASN.18417 51323 Performed By: #### 5 6888-1 #### JOLENE Cantu (58793) [facility] ([facility]) [address] [place] [address] 96420 Glucose [Mass/Vol] 85 mg/dL Normal 74-99 [facility] Comment on above: Performed By: #### 5 6888-1 #### JOLENE Cantu (27346) [facility] ([facility]) [id number] [place] [address] 51256 Potassium [Moles/Vol] 3.8 mmol/L Normal 3.5-5.3 [facility] Comment on above: Performed By: #### 5 6888-1 #### JOLENE Cantu (13490) [facility] ([facility]) [address] [place] [address] 38831 Protein [Mass/Vol] 7.5 g/dL Normal 6.4-8.2 [facility] Comment on above: Performed By: #### 5 6888-1 #### JOLENE RONQUILLO L ([id number]) [facility] ([facility]) [address] [place] [address] 05165 Sodium [Moles/Vol] 137 mmol/L Normal 136-145 [facility] Comment on above: Performed By: #### 5 6888-1 #### JOLENE RONQUILLO L ([id number]) [facility] ([facility]) [address] [place] [address] Urea nitrogen [Mass/Vol] 18 mg/dL Normal 6-23 [facility] Comment on above: Performed By: #### 5 6888-1 #### JOLENE Cantu ([id number]) [facility] ([facility]) [address] [place] [address] 14302 ESR Westergren method (Bld) [Velocity]on 10-11-2023 ESR (Bld) [Velocity] 26 mm/h High 0-20 [facility] Comment on above: Performed By: #### 5 6888-1 #### JOLENE Cantu ([id number]) [facility] ([facility]) [address] [place] [address] 41101 Magnesiumon 10-11-2023 Magnesium [Mass/Vol] 1.99 mg/dL Normal 1.60-2.40 [facility] Comment on above: Performed By: #### 5 6888-1 #### JOLENE Cantu (15772) [facility] ([facility]) [id number] [place] [address] 33448 PT Coag (PPP) [Time]on 10-10 INR Coag (PPP) [Relative time] 0.9 Normal 0.9-1.1 [facility] Comment on above: Performed By: #### 5 6888-1 #### JOLENE Cantu ([id number]) [facility] ([facility]) [address] [place] [address] 05854 PT and aPTT panel Coag (PPP) on 10-11-2023 aPTT Coag (PPP) [Time] 32 s Normal 27-38 [facility] Comment on above: Order Comment: HIV A g/Ab screen is performed using the Siemens [employer] HIV Ag/Ab Combo assay which detects the presence of HIV p24 antigen as well as antibodies to HIV-1 (Group M and O) and HIV-2. No laboratory evidence of HIV infection. If acute HIV infection is suspected, consider testing for HIV RNA by PCR (viral load). Performed By: #### 5 6888-1 #### JOLENE Cantu ([id number]) [facility] ([facility]) [address] [place] [address] INR Coag (PPP) [Relative time] 1.0 Normal 0.9-1.1 [facility] Comment on above: Order Comment: HIV A g/Ab screen is performed using the Siemens [employer] HIV Ag/Ab Combo assay which detects the presence of HIV p24 antigen as well as antibodies to HIV-1 (Group M and O) and HIV-2. No laboratory evidence of HIV infection. If acute HIV infection is suspected, consider testing for HIV RNA by PCR (viral load). Performed By: #### 5 6888-1 #### JOLENE Cantu ([id number]) [facility] ([facility]) [address] [place] [address] 94301 PT Coag (PPP) [Time] 11.3 s Normal 9.8-12.8 [facility] Comment on above: Order Comment: HIV A g/Ab screen is performed using the Siemens [employer] HIV Ag/Ab Combo assay which detects the presence of HIV p24 antigen as well as antibodies to HIV-1 (Group M and O) and HIV-2. No laboratory evidence of HIV infection. If acute HIV infection is suspected, consider testing for HIV RNA by PCR (viral load). Performed By: #### 5 6888-1 #### JOLENE Cantu ([id number]) [facility] ([facility]) [address] [place], [place] [id number] Coding Summaryon 10-07-2023 Coding Summary HTMLBase 64 AvvqutqtITy4bCg+PGhlYWQ +RC2NYPKhC10xoNSoiY2kE6 NMTElOSywgQVBQTElOSyIgb fAwWV3weXKeZIBl IC8+WV3oCCEhLikkhPBuo4Q 8sJB3B89opq6wYZhqpTK6KN GlIoZcdphdw7xikJa7WAjlD mluOyBt LCKmdH72BVD5mY74Co23fKP nhKLth7vtyPd7BfTlHFMzCT M3gCszMOauf7CtBUHfL99hg FJla6T3 YPDfzBkwuRPoCrPcrMF5jV9 jQDsrsafru7hetskwEyr1yr 24aXSsr6C2zCY7N9EozlH4M GJvbGQg PvkmpPGVtD4bsvbxu0kkokm lPoYuRNQpOQa9HSv0KIBzjR ohRaVgIU25GOD8LLPktxJkR 2FsLWFs kXlhIvM6v6P4Vs9IV5ASZry wW3HQUHDJILqysGP+PC90cj 28J6WmRafwIff4SUUtHOT1n VW0xI7s PCCqZKamt9C2kXY7E5ItpxP cbg0oh0pcTXJeNQhuX07ekE Uqm4Z2ZJGktTB8TVKecVzfP iBzaG93 Oyc+HSFspMcgt2DyAustr5l hr8xfePy3VexkEGSidqOpwH umIEU9z5WvXx9sUTWudPS6y VU0fS6l KcMcVhP4APewR383AxBejWT sPblcK37nS1WxoCY+PHRyPj b1QXXuhTrxDS8dT8JeUEOhe mctbGVm uLhgDS3pIVSxdjekHCLqzW3 uMIVqS3j9JcBqYmD6PImeV8 KoTBAlkrgtLd36qK2hDmVlM kT7OEgv K3EgwcC5NCPfxAToAXcgLFT 9L03an4Z8VZJhDSTpNON7yW E5nY1ooCctljksbXLuzMwsw mVydGlj ZKjuAHtkA327AMMkyXzlWbF vZGluZyBEYXRlOiAgMDcvMT UvMjAyNDwvdGQ+VRYlETW7t WxlPSAn qLJpCTroLe1afUvuwXzvFC8 nHAQcbxheWRNwrB8fSWNivU FqxZqtRI9lXZNcbqhwg952H iAxMHB0 IIPtxHRmQ3FhmN7qSgNtRMU xRMWlD7QwyBLqSJgvW949XR atPwI3ATXkcdCzU0NjVVUbb WduOiB0 e7F1Vo8Bh5McsuvzF3CimLR hIqUbVqpbAFy9P5LmShcmcL I+WT02XMUkST70PXl3ALX1m WxlPSdi QMLjM6DaqO7pCvJcCUWqHDC kOyc+PHRhYmxlIHdpZHRoPS usWMQjZqWecXbqEK1fIy1nO GVyLWNv vYifdTZdJlFps9kzDTUbFXq mCZ9whXigY0OqfVG0BPIyn3 n3Fl46V06zL9QrpFW+PGNvb WE8nEN7 wC5rQzFyKjG9GUykU016UnM imYKbVwkqx7bxs4naeEi5Vh K2XVToqiZemXtuZTK9s6HzV k55S67b IHdpZHRoPSIxNSUiIHZhbGl eix0vnE7qOk4+JQXjtXQ8wG S9xU0dMkImUyL6ICklZ183T nRvcCIv Rqvvw6lxu1smyOh7PiDhGNM cszBqtIgqRDS9h8NbRv27G7 BolPsug7VbFki7vt70yUXdk 7A2dUV7 O8ZfTVQnyzhobCShzZnoXW2 wARVdzepgVCBkwZ9oZVEjV5 s9NyJjVwI4GLgnF5XoadB2V GJvbGQg VOHehNCXjP4beektz5kuqke rCzNoCRZsTSe8LYh7NGVnkJ zrCiXoDKM7WcC2ZNH5yDMhm J2eeIdl avutbN5bDls+WRK6wYLogKF XEF2bWvdliNN+UAKwOLC9mT ebAHgwREGxvY2rELZwE9f4X iAwLjA1 FJdiQ2GakdZ3BNVaeVJpAIQ xoTXRiD0wcbvtm3glribwKn KqGTQqGLe3SFf8JHNorHfjD iBsZWZ0 MrP1STU6xFZhhH5qrMdsyqm tqN7kSqq+DrxwzQpvWKH9HV q4G5AzEnh9UBOvaEkeWB6wc GFkZGlu Nv8qjKvcsEjdWF7uUJFvzaz ay587ZrFhl8mfIEJudSUqHH lwWPP0T46gl0E9FBRhTXLxO IV3hNQ9 mF4gjBivfhcimXIchBixraP dhGieVMqyWEglF415JCYfgB iuLiCsZVv2B6CdDpp6DBWov QliEW1f bILePLifGy4zkFgcgWfoMQ9 sXTOqhghnd952IfTqc2evRP SzkCSzLTjnJLK5T77zu1U1C CMwMDAw GOI7xXB9tA0kxWkmznknyIC mdDsgdmVydGljYWwtYWxpZ2 88MCDmqRywJcOdwTo5J2IeG ae0QKCa pXpvTJ6uyZWkMQpeVd4miDa dtMxcAJ7mZYRwtrwzg144Iv Wha2bkPDLadFLfJOfxDWN2C 32rh6Q7 QOFaNDSgSCS4sQP2cM7luVw nbjogbGVmdDsgdmVydGljYW xlFDoiT908PFQokSecEdFnv GllbnQg ADirUCf1O3TyWgqsdWV+PC9 4ZQZhPP71oYMldPGqd8aizP j1MjBiPDHgIYK2yRqoHZlcx 3JkZXIt F00syPNot4P4SVFgfAplnKD tTbExeWP6jM3gZDgtqnmde4 osclwgPasop3dpgl24eI72S 29sIHdp ZHRoPSIzMCUiIHZhbGlnbj0 gsN9vCx6+WZMcxAV3sEF6xV 9qKHHaLkK2SLjzK071JhHct CIvPjxj s5uqn4sfgDo2GmH3XZGzrxF toQvjGAT3z6MpPk61R74zWN dpZHRoPSIyMCUiIHZhbGlnb e9tiY8y Ii8+QJZacYD2nKY8sW1pQdX mJsY7DAinX466OhIiqKSzRk djN16nM3GclQE+MKHdXbg1A CBzdHls BZ5jmKPoSMejVe9xWKQ9DrW jTaIuMNljQ1NtZGTkptbzen jybTH8HEJxKNKvnG79Qd5da DogMTBw eVGIbA7ioozuq5cwofyvBqM pXJEdRZq8FDq7AXYqeMbjKu ZwNXQ9FtG4YVD7yVEkmD7ai Glnbjog mY5hI6DkIGLuqmzzQm39yR4 yUvReVrV1XUkzOsn+TElFQi reBZUFUKJQGCJGLkcIOpS0O 2MaPqv4 DOVazDuzJN3lvFSpPFujBh1 trXxmcGpvXU8dYPCnutrgDG DfcE7oQUFioAIjfQdiLV7tG TBpbjtm t542LnRgPOX6SUWxtQEyB7E clO6rHqFzCPBhSBIeT6JmqB JbWIgrZ358VOcyUiO0DVEab lSyU2Mg YENjzXleGqH8e2V6Pq4uDz8 dBD2jNJp9LM67QI98kUAvd6 C9tTX4O5HxIQPsncpvqezcc YL0QYPo HOKxkS75vNTjQVcrIn5tm9L 3b237MLAlIGRpfX42Ot3ngO faKCMmhOVByC3trhtrg5frc jogIzAw MSQfGPw0HAp5JMDvsMsiXhQ pGWQ4YzV0JXR2eBGzbB1uzZ ymjhigvM6lHxp+NDYgWWVhc cP6U9Cx Gqj5SRTgmTgqLZ9rbNNjXAh wAs7agFbhzTxcMY4yKNAreu wpFFKxiU7xUJXizYEzmVzzU X0cLIOo wwryr127BeWaWGF6OKZwtKN lZ7NyxH6cUfCwYGEvESPeI4 VbcTOyLCkxH751SRtbOhM2U HZlcnRp W8QaBSCcjAyiMdZ7j2H7Yg0 PFA8WIAC6S2UiKrf8SLVyeW ejUV1tsBHfAZfbFt9qsJblx KtiNU0h PIKqxvajKSOyfE7pPJXjzIU tbUsfLC0hMREixmaks612Ot OyVIO6DKQbdJRqA2BteD9vR iAjMDAw QUFpX0QagIBtPZqsF571ZKp sAvR5AOWdpnZtE8NaRNWgbL sdTpZ9v4X2Cn6TmFLbT8SvA 8g7Q3Dw PjwvdHI+SG43RRWmIQ82dFM waKLcn4yhaLx8PaBnAEThBM J9aZoqCUekj8ZyKQGwL67jf DEsw7N3 QUQxtQayqQOsFqPahGY6aL9 iWIskomndt6yzbsnpKsvwo1 wfyd18cT33K04rZNnlZHUxH SIzMCUi LNFazAvvab9kvL3uEi6+PGN kxXL7eKY3gC0hFwPyAxO4AY xqJ961FbNykLLpMsgul3cld 4prxZm5 NxLyWOHxieHteMyfCQC2c8L wVl77I93mJAcdRSYcQJSyJB EyMNSrcJlchi4tyX6mZx5+P S1rm5ft tv73hY62iCN+QABcGML3aLu wFPogWWRteO8pPRrvJhW3DL YxOcPuqT75xOKlQUdgRl6oe WdodDog DX2sDYSzwqmzb042PzXgb3t jFOPmjWPkSEvkUDF7A61us7 T2HNCkYFIaBKK0gVG2wY1kj Glnbjog bGVmdDsgdmVydGljYWwtYWx xR605XPAwhWhtMeFnsAEqP7 rqgmRPGX3lExczvDQ+PHRkI LV1uSdx ZYnwXUZwhI6vMKBeL0k5MkZ sLjK9WQxiS7DzfoC0ZMPdhI MbHKJmmJGCxZ1obygmb7iuj jogIzAw GEIrFXd5UYe6OROczGylWrN rABB2UfM9GBA3iBYmsK4zkI dyvnjdcB0fFjs+RklOOjwvd GQ+PHRk ERO3dTmdHIqwJZOukQ0dHHL nJ8l9NdTvUdY8GWfcB0Zzra Y1ALCkaVFzRFMfvZRMiF7ub yunv9an ponpHzThYFNdKZi7FIk2BUF fgGyfBdViSXO7CmY1IZT4eL BixK1hmZqpnomnzK9zFqk+T VJOOjwv dGQ+DXJuWFX5aTajTAmbBZF knI7qDJJwP6g5YjIdQeS1HY jrM8OhmuB7ANHxhYYpGSDni LPOsW8a lfmqj2atvsljDqWmURPqSXt 5WQd0GWFneHsxEtPrEBZ8Hs F5KFS8eYTyeP6ljGgbaxdvp G9wOyc+ AFG1JOW5GN26CD79U6PtVdx vdGFibGU+PHRhYmxlIHdpZH WtTGaxZRLiXhAccBsbSP3bO t8wYOJb LWN (more content not included)... Normal [facility] Activated partial thrombopla stin time (aPTT) in platelet poor plasma by coagulation aOrdered By: Abby Ng on 10-05-2023 aPTT Coag (PPP) [Time] 33.6 s 25.1-36.5 [facility] Comment on above: A hematocrit value g reater than 55% may lead to inaccurate results in coagulation testing. Patients having hematocrit values >55% require a special collection tube for coagulation studies. Please contact the laboratory at [phone] for redraw instructions. Automated basophil %Ordered By: Abby Ng on 10-05-2023 Basophils/100 WBC (Bld) 0.4 % Normal . [facility] Comment on above: Performed By: #### C BC CMP, CUBLD #### [address] Automated basophil countOrde red By: Abby Ng on 10-05-2023 Basophils (Bld) [#/Vol] 0.0 10*3/uL Normal 0.0-0.2 [facility] Comment on above: Performed By: #### C BC CMP, CUBLD #### [address] Automated blood monocyte cou ntOrdered By: Abby Ng on 10-05-2023 Monocytes (Bld) [#/Vol] 0.7 10*3/uL Normal 0.0-0.8 [facility] Comment on above: Performed By: #### C BC CMP, CUBLD #### [address] Automated eosinophil %Ordere d By: Abby Ng on 10-05-2023 Eosinophils/100 WBC (Bld) 1.0 % Normal . [facility] Comment on above: Performed By: #### C BC CMP, CUBLD #### [address] Automated eosinophil countOr dered By: Abby Ng on 10-05-2023 Eosinophils (Bld) [#/Vol] 0.1 10*3/uL Normal 0.0-0.45 [facility] Comment on above: Performed By: #### C BC CMP, CUBLD #### [address] Automated monocyte %Ordered By: Abby Ng on 10-05-2023 Monocytes/100 WBC (Bld) 6.1 % Normal . [facility] Comment on above: Performed By: #### C CANDACE WADE, BETTYLD #### [address] Automated neutrophil %Ordere d By: Abby Ng on 10-05-2023 Neutrophils/100 WBC (Bld) 75.7 % Normal . [facility] Comment on above: Performed By: #### C SHERI, CMP, CUBLD #### [address] BNP ser/plasOrdered By: Rick Ng on 10-05-2023 Natriuretic peptide B (Bld) [Mass/Vol] 70.0 pg/mL Normal 5-100 [facility] Comment on above: Result Comment: PERF ORMED BY: [place] [address] PATHOLOGIST JOB RECRUITER JASON WILSON M.D. Performed By: #### C CANDACE WADE, BETTYLD #### [address] Bacteria identifiedon 2023 Bacteria identified Cx Nom (Bld) Test: Blood Culture Specimen Source: Peripheral Venipuncture Specimen Type: Blood culture Specimen Date: 10/05/20232147 Result Date: 10/10/2023 0000 Result Status: Final result Abnormal: No Resulting Lab: [facility] [id number] [facility] [address] CULTURE No growth at 4 days - FINAL REPORT Normal [facility] Comment on above: Performed By: #### 5 7021-8 #### SHWETA ROCHA ([id number]) [facility] ([facility]) [address] [place] [address] Bacterial blood cultureOrder ed By: Abby Ng on 10-05-2023 Bacteria identified Cx Nom (Bld) NO GROWTH 5 DAYS [facility] Basic Metabolic Panelon 07- Creatinine Clr Calc Pharmacy 116.62 Normal [facility] Comment on above: Performed By: #### C BC, CMP, CUBLD #### [facility] [address] [place] [address] [place] GFR/1.73 sq M.predicted MDRD (S/P/Bld) [Vol rate/Area] mL/min/{1.73_m2} Normal [facility] Comment on above: Performed By: #### C BC, CMP, CUBLD #### [address] Bilirubin Test strip Ql (U)O rdered By: Abby Ng on 10-05-2023 Bilirubin Ql (U) Negative Negative [facility] Blood Cultureon 10-05-2023 Bacteria identified Cx Nom (Bld) NO GROWTH 5 DAYS PERFORMED BY: [place] [address] PATHOLOGIST JOB RECRUITER JASON WILSON M.D. Normal [facility] Comment on above: Performed By: #### C BC, CMP, CUBLD #### [address] Blood type and Indirect anti body screen panel (Bld)on 10-05-2023 ABO group Nom (Bld) O Normal [facility] Comment on above: Performed By: #### 5 6888-1 #### JOLENE Cantu ([id number]) [facility] ([facility]) [address] [place] [address] Blood group antibody screen Ql Negative [facility] Comment on above: Performed By: #### 5 6888-1 #### JOLENE Cantu ([id number]) [facility] ([facility]) [id number] [place] [address] D Ag Ql (Bld) Positive [facility] Comment on above: Performed By: #### 5 6888-1 #### JOLENE Cantu ([id number]) [facility] ([facility]) [address] [place] [address]63 C reactive proteinon 024 CRP [Mass/Vol] 0.98 mg/dL Normal <1.00 [facility] Comment on above: Performed By: #### 5 7021-8 #### SHWETA ROCHA ([id number]) [facility] ([facility]) [address] [place] [address] C reactive protein [Mass/vol ume] in Serum or PlasmaOrdered By: Abby Ng on 10-05-2023 CRP [Mass/Vol] 1.0 mg/dL High 0.0-0.5 [facility] C-Reactive Proteinon 024 C-Reactive Protein 1.0 mg/dL High 0.0-0.5 [facility] Comment on above: Result Comment: PERF ORMED BY: [facility] [address] [place] [address] PATHOLOGIST JOB RECRUITER JASON WILSON M.D. Performed By: #### C BC, CMP, CUBLD #### [facility] [address] CBC panel Auto (Bld)on 10-04 Erythrocyte distribution width (RBC) [Ratio] 12.4 % Normal 11.5-14.5 [facility] Comment on above: Performed By: #### 5 7021-8 #### SHWETA ROCHA ([id number]) [facility] ([facility]) [address] [place] [address] Hematocrit (Bld) [Volume fraction] 36.3 % Normal 36.0-46.0 [facility] Comment on above: Performed By: #### 5 7021-8 #### SHWETA ROCHA ([id number]) [facility]) [address] [place] [address]779 Hemoglobin (Bld) [Mass/Vol] 12.5 g/dL Normal 12.0-16.0 [facility] Comment on above: Performed By: #### 5 7021-8 #### SHWETA ROCHA ([id number]) [facility]) [address] [place] [address]21 MCH (RBC) [Entitic mass] 30.4 pg Normal 26.0-34.0 [facility] Comment on above: Performed By: #### 5 7021-8 #### SHWETA ROCHA ([id number]) [facility] ([facility]) [address] [place] [address]79 MCHC (RBC) [Mass/Vol] 34.4 g/dL Normal 32.0-36.0 [facility] Comment on above: Performed By: #### 5 7021-8 #### SHWETA ROCHA ([id number]) [facility]) [address] [place] [address]671 MCV (RBC) [Entitic vol] 88 fL Normal 80-100 [facility] Comment on above: Performed By: #### 5 7021-8 #### SHWETA ROCHA ([id number]) [facility] ([facility]) [address] [place] [address] 14277 Nucleated RBC/100 WBC (Bld) [Ratio] 0.0 /100 WBCs Normal 0.0-0.0 [facility] Comment on above: Performed By: #### 5 7021-8 #### SHWETA ROCHA ([id number]) [facility] ([facility]) [address] [place] [address]551 Platelets (Bld) [#/Vol] 422 x10*3/uL Normal 150-450 [facility] Comment on above: Performed By: #### 5 7021-8 #### SHWETA ROCHA ([id number]) [facility]) [address] [place] [address] 87711 RBC (Bld) [#/Vol] 4.11 x10*6/uL Normal 4.00-5.20 [facility] Comment on above: Performed By: #### 5 7021-8 #### SHWETA ROCHA ([id number]) [facility]) [address] [place] [address] WBC (Bld) [#/Vol] 10.1 x10*3/uL Normal 4.4-11.3 [facility] Comment on above: Performed By: #### 5 7021-8 #### SHWETA ROCHA ([id number]) [facility]) [address] [place] [address] abdomen pelvis w conon CT abdomen pelvis w con [facility] [place] [address] [place] [address] Scan Report Signed Patient: Jerad Tracy MR#: [id number] 49 : 1975 Acct:[id number] Age/Sex: 48 / F ADM Date: 10/05/23 Loc: ER Room: Type: [facility] ER Attending Dr: Copies to: Abby Ng MD Ordering Provider: Abby Ng MD Date of Service: 10/05/23 CT/CT abdomen pelvis w con: recent spinal stimulator with overlying redness CT abdomen pelvis w con 10/05/2023 5:21 PM SIGNS AND SYMPTOMS: Spinal cord similar placement with left lower quadrant tenderness, warmth and drainage at incision site TECHNIQUE: Multidetector ct axial images of the abdomen and pelvis were obtained with IV contrast. Multiplanar reformats were performed and reviewed to further define anatomy and possible pathology. CT was performed with one or more of the following dose reduction techniques: Automated exposure control, adjustment of the mA and/or kV according to patient size, or use of iterative reconstruction technique. COMPARISON: None. FINDINGS: Lower Chest: Within normal limits. ABDOMEN: Liver: Within normal limits. Bile Ducts: Normal caliber. Gallbladder: Previously removed Pancreas: Within normal limits. Spleen: Within normal limits. 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 This is similar to the prior exam. There is an unchanged 1 cm right adrenal nodule. Kidneys: Within normal limits. Pelvis: Reproductive Organs: No pelvic masses. Ureters: Within normal limits. Bladder: Within normal limits. Bowel: Normal caliber. There is a normal appendix in the right lower quadrant. Mesenteric Lymph Nodes: No enlarged mesenteric lymph nodes. Peritoneum: No ascites or free air, no fluid collection. Vessels: Atherosclerotic changes are noted in the abdominal aorta and its branches. Retroperitoneum: Within normal limits. Abdominal Wall: A pacer generator is noted in the left posterior flank. The leads extending medially towards spine with a fluid collection surrounding the lesions measuring 5.2 x 2.8 cm in greatest axial dimension. This may represent a postoperative seroma. An infectious etiology is not excluded however. Bones: Degenerative changes are noted in the thoracic lumbar spine. There is a spinal cord stimulator entering the canal at the L1-L2 level posteriorly and extending to the T8 superior endplate. CT/CT abdomen pelvis w con IMPRESSION: A pacer generator is noted in the left posterior flank. The leads extending medially towards spine with a fluid collection surrounding the lesions measuring 5.2 x 2.8 cm in greatest axial dimension. This may represent a postoperative seroma. An infectious etiology is not excluded however. No acute intra-abdominal pathology. Impression dictated by: Yoan Ma M.D.10/05/2023 6:57 PM Dictation Location: [place] [address] Transcribed By: [facility] 10/05/231856 Dictated By: Yoan Ma II, MD 10/05/231848 Signed By: 10/05/231856 Normal [facility] Calcium [Mass/volume] in Ser um or PlasmaOrdered By: Abby Ng on 10-05-2023 Calcium [Mass/Vol] 8.8 mg/dL Normal 8.6-10.3 [facility] Comment on above: Performed By: #### C CANDACE WADE CUBLD #### [facility] [address] Carbon dioxide, total [Moles /volume] in Serum or PlasmaOrdered By: Abby Ng on 10-05-2023 CO2 [Moles/Vol] 26.0 mmol/L Normal 21.0-31.0 [facility] Comment on above: Performed By: #### C CANDACE WADE CUBLD #### [facility] [address] [place] [id number] [place] Chloride [Moles/volume] in S saw or PlasmaOrdered By: Abby Ng on 10-05-2023 Chloride [Moles/Vol] 105 mmol/L Normal 98-107 [facility] Comment on above: Performed By: #### C BC, CMP, CUBLD #### [address] Color of Urine by AutoOrdere d By: Abby Ng on 10-05-2023 Color (U) Light-yellow Normal Yellow [facility] Comment on above: Order Comment: Name Collection Type:: Clean-Voided Midstream Performed By: #### C BC, CMP, CUBLD #### [address] Complete Blood Count Auto Di ffon 10-05-2023 Mean Corpuscular HGB Conc 33.9 g/dL Normal 32.0-35.0 [facility] Comment on above: Performed By: #### C BC, CMP, CUBLD #### [address] Monocytes/100 WBC (Bld) 16.83 % Normal 0.00-20.00 [facility] Comment on above: Performed By: #### C BC, CMP, CUBLD #### [address] NRBC% 0.1 /100{WBC} Normal 0-0.5 [facility] Comment on above: Performed By: #### C BC, CMP, CUBLD #### [address] Creatine kinase [Enzymatic a ctivity/volume] in Serum or PlasmaOrdered By: Abby Ng on 10-05-2023 CK [Catalytic activity/Vol] 49 U/L Normal 30-223 [facility] Comment on above: Performed By: #### C BC, CMP, CUBLD #### [place] [address] [place] Creatinine [Mass/volume] in Serum or PlasmaOrdered By: Abby Ng on 10-05-2023 Creatinine [Mass/Vol] 0.75 mg/dL Normal 0.60-1.20 [facility] Comment on above: Performed By: #### C BC, CMP, CUBLD #### [address] ECG 12 lead ECGon 10-05-2023 ECG 12 lead ECG [facility] [place] [address] [place] [address] Electrocardiograph Report Signed Patient: Jerad Tracy MR#: [id number] 49 : 1975 Acct:[id number] Age/Sex: 48 / F ADM Date: 10/05/23 Loc: ER Room: Type: [facility] ER Attending Dr: Ordering Provider: Abby Ng MD Date of Service: 10/05/23 ECG/ECG 12 lead ECG: Skin/Abscess/Foreign Body Copies to: Test Reason : Blood Pressure : 149/86 mmHG Vent. Rate : 81 BPM Atrial Rate : 81 BPM P-R Int : 132 ms QRS Dur : 90 ms QT Int : 414 ms P-R-T Axes : 53 49 44 degrees QTcB Int : 480 ms Normal sinus rhythm regular axis Nonspecific ST abnormality When compared with ECG of 01-Jun-2023 14:02, No significant change was found Confirmed by Abby Ng MD ([id number]) on 10/05/2023 10:15:52 PM Referred By: Electronically Signed By: Abby Ng MD Transcribed By: MUS Signed By Abby Ng MD 09/22 06/15 6198 Normal [facility] ED Clinical Summaryon 2023 ED Clinical Summary [facility] Emergency Department [address] [place], [place] [id number] ED Clinical Summary PERSON INFORMATION Name: JERAD TRACY Age: 48 Years Sex: FEMALE : 1975 MRN: Acct#: Visit Reason: Post surgical problem; SKIN PROBLEM-BACK Arrival: 10/05/2023 11:20:01 Discharge: 10/05/2023 12:04:00 LOS: 000 00:44 Check In: 10/05/2023 11:20:01 Checkout:10/05/2023 12:04:00 Address: [address] [place] [address] PCP: Cheyanne Mckeon PROVIDER INFORMATION Provider Role Assigned Unassigned Susu Lamar PA-C ED PA 10/05/2023 11:21:33 Niki Reyes CONSTRUCTION JOB COST ESTIMATOR Nurse 10/05/2023 11:33:03 VITALS INFORMATION Vital Sign Triage Latest Temperature Tympanic Temperature Temporal Artery Pulse Rate O2 Sat 97 % 97 % Respiratory Rate 16 br/min 16 br/min Blood Pressure /65 mmHg /65 mmHg MEDICAL INFORMATION Medications Given: Allergy Information: HYDROcodone; penicillin PHYSICIAN DOCUMENTATION DISCHARGE INFORMATION: Discharge Disposition: Home Discharge Location: Home PATIENT EDUCATION INFORMATION Instructions: Wound Dehiscence, [id number] Follow-Up: With: Address: When: [facility] [address] [place] [phone] Within 3 to 5 days Comments: Call for follow up appointment With: Address: When: Cheyanne Mckoen [address] [facility] [place] [address] Within 3 to 5 days Comments: keep appt with surgeon in 3 days DIAGNOSIS: 1:Dehiscence of incision Patient Understands: Yes - Patient/family/caregive r verbalizes understanding of instructions given Comment: Normal [facility] ED Note-Physicianon 10-05-19 24 ED Note-Physician [facility] Comment on above: Result Comment: Elec tronically Signed By: Landon Tidwell PA-C\.br\Date and Time Signed: 10/04/23 17:18 EDT\.br\Electronically Co-Signed By: Jorge Mcintosh DO\.br\Date and Time Co-Signed: 10/05/23 07:28 EDT ED Patient Summaryon 024 ED Patient Summary [facility] - Emergency Department [address] [place] [address] PATIENT DISCHARGE INSTRUCTIONS Patient Information Name: JERAD TRACY Age: 48 Years Date of : 1975 Reason For Visit: Post surgical problem; SKIN PROBLEM-BACK Arrival Time: 10/05/2023 11:20:01 Primary Care Physician: Cheyanne Mckeon Attending Physician: Raj Ayers MD Comment: Visit Diagnosis: Diagnoses This Visit Dehiscence of incision (T81.31XA) Post surgical problem ([id number]) The Pharmacy at [facility] is open Saturday through Saturday from 9A [...] alcohol and/or drug addiction problems; contact the [facility] 15/10 Crisis Hotline -Text 1WPLG to 932717. If you received any narcotics, sedation, or [...] sign any legal documents With: Address: When: [facility] [address] [place] [phone] Within 3 to 5 days Comments: Call for follow up appointment With: Address: When: Cheyanne Mckeon [address] [place] [address] [place] [address] Within 3 to 5 days Comments: keep appt with surgeon in 3 days Medication Information: The exam and treatment you received today in the [facility] Emergency Department were for an urgent problem and are not intended as complete care. It is important for you to follow up with a doctor, nurse practitioner, or physician?s carpenter assistant installer for ongoing care. If your symptoms become [...] so we can reach you if necessary. [facility] Emergency Department has provided you with a complete list of medications post discharge. Please inform your supervisor pig machine/provider of your visit and for further instruction on these medications. Any specific questions regarding your chronic medications and dosages should be discussed with your primary care physician(s) and/or pharmacist. New Medications [facility], [address] [place], [place] [id number], [phone] doxycycline (doxycycline hyclate 100 mg oral capsule) 100 Milligram Oral (given by mouth) 2 times per day for 10 Days. Refills: 0. Additional medications on your home medication list not specifically addressed. Please contact the ordering physician if you have questions about these medications. cyclobenzaprine docusate-senna (Stool Softener with Laxative 50 mg-8.6 mg oral tablet) FLUoxetine 60 Milligram Oral (given by mouth) every day. oxyCODONE (oxyCODONE 5 mg oral tablet) Visit Information Allergies: Substance Reaction Symptoms Type Comments HYDROcodone Drug penicillin Drug Vital Signs: Vitals and Measurements this Visit (last charted value for your 10/05/2023 visit) Vital Signs This Visit Temperature Oral: 37 DegC Heart Rate Monitored: 98 bpm Respiratory Rate: 16 br/min Systolic Blood Pressure: 116 mmHg Diastolic Blood Pressure: 65 mmHg SpO2: 97 % Oxygen Therapy: Room air Measurements This Visit Height/Length Measured: 160 cm Weight Measured: 113.40 kg Weight Dosin.400 kg Body Mass Index: 44.3 kg/m2 Problems List: Problem Onset Comments Tobacco user Patient Education Wound Dehiscence Wound dehiscence is when a cut from surgery (an incision) opens up and does not heal like it should. This problem usually happens 7?10 days after surgery. You may have bleeding from the cut. You may also have pain or a fever. This condition should be treated early. What are the causes? C (more content not included)... Normal [facility] ESR Westergren method (Bld) [Velocity]on 10-05-2023 ESR (Bld) [Velocity] 35 mm/h High 0-20 [facility] Comment on above: Performed By: #### 5 7021-8 #### SHWETA ROCHA ([id number]) [facility] [address] [place] [address] Erythrocyte Sedimentation Ra karen 10-05-2023 ESR (Bld) [Velocity] 58 mm/h High 0-19 [facility] Comment on above: Result Comment: PERF ORMED BY: [place] [address] PATHOLOGIST JOB RECRUITER JASON WILSON M.D. Performed By: #### C CANDACE WADE, BETTYLD #### [address] Erythrocyte distribution wid th [Ratio] by Automated countOrdered By: Abby Ng on 10-05-2023 Erythrocyte distribution width (RBC) [Ratio] 13.2 % Normal 11.9-15.3 [facility] Comment on above: Performed By: #### C CANDACE WADE CUBLD #### [address] Erythrocyte sedimentation ra te by Photometric methodOrdered By: Abby Ng on 10-05-2023 ESR Photometric method (Bld) [Velocity] 58 mm/hr High 0-19 [facility] Erythrocytes [#/volume] in B lood by Automated countOrdered By: Abby Ng on 10-05-2023 RBC (Bld) [#/Vol] 4.32 10*6/uL Normal 3.60-5.00 [facility] Comment on above: Performed By: #### C CANDACE WADE CUBLD #### [address] Glucose [Mass/volume] in Ser um or PlasmaOrdered By: Abby Ng on 10-05-2023 Glucose [Mass/Vol] 95 mg/dL Normal 70-100 [facility] Comment on above: ADA recommended refe rence rangeRandom Glucose Reference Range is dependent on time and content of last meal. Glucose of more than 200 mg/dL in a nonstressed, ambulatory subject supports the diagnosis of Diabetes Mellitus. Result Comment: [place] om Glucose Reference Range is dependent on time and content of last meal. Glucose of more than 200 mg/dL in a nonstressed, ambulatory subject supports the diagnosis of Diabetes Mellitus. ADA recommended reference range Performed By: #### C CANDACE WADE CUBLD #### [address] Glucose [Mass/volume] in Uri ne by Test stripOrdered By: Abby Ng on 10-05-2023 Glucose Test strip (U) [Mass/Vol] Normal mg/dL Normal [facility] Hematocrit [Volume Fraction] of Blood by Automated countOrdered By: Abby Ng on 10-05-2023 Hematocrit (Bld) [Volume fraction] 40.4 % Normal 34.0-46.4 [facility] Comment on above: Performed By: #### C CANDACE WADE CUBLD #### [address] Hemoglobin Test strip Ql (U) Ordered By: Abby Ng on 10-05-2023 Hemoglobin Ql (U) Negative Negative [facility] Hemoglobin [Mass/volume] in BloodOrdered By: Abby Ng on 10-05-2023 Hemoglobin (Bld) [Mass/Vol] 13.7 g/dL Normal 11.8-15.4 [facility] Comment on above: Performed By: #### C CANDACE WADE CUBLD #### [address] INR in Platelet poor plasma by Coagulation assayOrdered By: Abby Ng on 10-05-2023 INR Coag (PPP) [Relative time] 1.0 {INR} Normal [facility] Comment on above: INR Therapeutic Rang e A) Pre- and Peroperative OAT started two weeks before surgery. NOT HIP SURGERY: 1.5 - 2.5 HIP SURGERY: 2 - 3B) Primary and secondary prevention of venous THROMBOSIS: 2 - 3C) Active venous thrombosis, pulmonary embolismand prevention of recurrent venous thrombosis: 2 - 3D) Prevention of arterial thromboembolismincluding patients with mechanical heart valves: 3 - 4.5 Result Comment: INR Therapeutic Range A) Pre- and Peroperative OAT started two weeks before surgery. NOT HIP SURGERY: 1.5 - 2.5 HIP SURGERY: 2 - 3 B) Primary and secondary prevention of venous THROMBOSIS: 2 - 3 C) Active venous thrombosis, pulmonary embolism and prevention of recurrent venous thrombosis: 2 - 3 D) Prevention of arterial thromboembolism including patients with mechanical heart valves: 3 - 4.5 Performed By: #### C BC, CMP, CUBLD #### [address] Ketones [Presence] in Urine by Test stripOrdered By: Abby Ng on 10-05-2023 Ketones Ql (U) Negative Normal Negative [facility] Comment on above: Order Comment: Name Collection Type:: Clean-Voided Midstream Performed By: #### C BC, CMP, CUBLD #### [place] [address] [place] Lactate [Moles/volume] in Se rum or PlasmaOrdered By: Abby Ng on 10-05-2023 Lactate [Moles/Vol] 0.6 mmol/L Normal 0.5-2.2 [facility] Comment on above: Result Comment: PERF ORMED BY: [place] [address] PATHOLOGIST JOB RECRUITER JASON WILSON M.D. Performed By: #### C UBLD, LACTIC, BMP, CRP, BNP, CK, HS TROP, PT, PTT, CBC, ESR #### [facility] [address] [place] [address] [place] Leukocyte esterase [Presence ] in Urine by Test stripOrdered By: Abby Ng on 10-05-2023 Leukocyte esterase Test strip Ql (U) Negative Normal Negative [facility] Comment on above: Order Comment: Name Collection Type:: Clean-Voided Midstream Performed By: #### C BC, CMP, CUBLD #### [facility] [address] [place] [address] [place] Leukocytes [#/volume] correc lisa for nucleated erythrocytes in Blood by Automated counOrdered By: Abby Ng on 10-05-2023 WBC corrected for nucl RBC Auto (Bld) [#/Vol] 12.3 10*3/uL High 3.8-11.6 [facility] Leukocytes [#/volume] in Blo od by Automated countOrdered By: Abby Ng on 10-05-2023 WBC (Bld) [#/Vol] 12.3 10*3/uL High 3.8-11.6 [facility] Comment on above: Performed By: #### C BC, CMP, CUBLD #### [facility] [address] Lymphocytes [#/volume] in Bl ood by Automated countOrdered By: Abby Ng on 10-05-2023 Lymphocytes (Bld) [#/Vol] 2.1 10*3/uL Normal 1.00-4.8 [facility] Comment on above: Performed By: #### C BC, CMP, CUBLD #### [place] [address] [place] Lymphocytes/100 leukocytes i n Blood by Automated countOrdered By: Abby Ng on 10-05-2023 Lymphocytes/100 WBC (Bld) 16.8 % Normal . [facility] Comment on above: Performed By: #### C BC, CMP, CUBLD #### [address] MCH [Entitic mass] by Automa lisa countOrdered By: Abby Ng on 10-05-2023 MCH (RBC) [Entitic mass] 31.8 pg Normal 24.7-34.3 [facility] Comment on above: Performed By: #### C BC, CMP, CUBLD #### [address] MCHC Auto (RBC) [Mass/Vol]Or dered By: Abby Ng on 10-05-2023 MCHC (RBC) [Mass/Vol] 33.9 g/dL 32.0-35.0 [facility] MCV [Entitic volume] by Auto mated countOrdered By: Abby Ng on 10-05-2023 MCV (RBC) [Entitic vol] 93.6 fL Normal 80-100 [facility] Comment on above: Performed By: #### C BC, CMP, CUBLD #### [place] [address] [place] Monocyte distribution width [Entitic volume] in Blood by AutomatedOrdered By: Abby Ng on 10-05-2023 Monocyte distribution width Auto (Bld) [Entitic vol] 16.83 % 0.00-20.00 [facility] Neutrophils [#/volume] in Bl ood by Automated countOrdered By: Abby Ng on 10-05-2023 Neutrophils (Bld) [#/Vol] 9.3 10*3/uL High 1.8-7.7 [facility] Comment on above: Performed By: #### C BC, CMP, CUBLD #### [facility] [address] Nitrite Test strip Ql (U)Ord ered By: Abby Ng on 10-05-2023 Nitrite Ql (U) Negative Negative [facility] No Panel InformationOrdered By: Abby Ng on 10-05-2023 Estimated GFR (CKD-EPI) > 60.0 mL/Min [facility] Creatinine Clearance (Chem 116.62 [facility] Nucleated erythrocytes [Pres ence] in Blood by Automated countOrdered By: Abby Ng on 10-05-2023 Nucleated RBC Auto Ql (Bld) 0.1 /100{WBC} 0-0.5 [facility] PT and aPTT panel Coag (PPP) on 10-05-2023 aPTT Coag (PPP) [Time] 33 s Normal 27-38 [facility] Comment on above: Order Comment: The A PTT is no longer used for monitoring Unfractionated Heparin Therapy. For monitoring Heparin Therapy, use the Heparin Assay. Performed By: #### 5 7021-8 #### SHWETA ROCHA ([id number]) [facility] (EM) [address] [place] [address] INR Coag (PPP) [Relative time] 1.0 Normal 0.9-1.1 [facility] Comment on above: Order Comment: The A PTT is no longer used for monitoring Unfractionated Heparin Therapy. For monitoring Heparin Therapy, use the Heparin Assay. Performed By: #### 5 7021-8 #### SHWETA ROCHA ([id number]) [facility] (EM) [address] [place] [address] PT Coag (PPP) [Time] 11.3 s Normal 9.8-12.8 [facility] Comment on above: Order Comment: The A PTT is no longer used for monitoring Unfractionated Heparin Therapy. For monitoring Heparin Therapy, use the Heparin Assay. Performed By: #### 5 7021-8 #### SHWETA ROCHA ([id number]) [facility] ([facility]) [address] [place] [address] Partial Thromboplastin Timeo n 10-05-2023 aPTT Coag (Bld) [Time] 33.6 s Normal 25.1-36.5 [facility] Comment on above: Result Comment: A he matocrit value greater than 55% may lead to inaccurate results in coagulation testing. Patients having hematocrit values >55% require a special collection tube for coagulation studies. Please contact the laboratory at [phone] for redraw instructions. PERFORMED BY: [place] [address] PATHOLOGIST JOB RECRUITER JASON WILSON M.D. Performed By: #### C CANDACE WADE CUBLD #### [place] [id number] [place] Platelet mean volume [Entiti c volume] in Blood by Automated countOrdered By: Abby Ng on 10-05-2023 Platelet mean volume (Bld) [Entitic vol] 7.5 fL Normal 6.3-10.7 [facility] Comment on above: Performed By: #### C CANDACE WADE CUBLD #### [facility] [address] [place] [id number] [place] Platelets [#/volume] in Bloo d by Automated countOrdered By: Abby Ng on 10-05-2023 Platelets (Bld) [#/Vol] 464 10*3/uL High 150-450 [facility] Comment on above: Performed By: #### C CANDACE WADE CUBLD #### [facility] [address] [place] [id number] [place] Potassium [Moles/volume] in Serum or PlasmaOrdered By: Abby Ng on 10-05-2023 Potassium [Moles/Vol] 4.0 mmol/L Normal 3.5-5.1 [facility] Comment on above: Performed By: #### C CANDACE WADE, CUBLD #### [facility] [address] [place] [id number] [facility] Protein Test strip (U) [Mass /Vol]Ordered By: Abby Ng on 10-05-2023 Protein (U) [Mass/Vol] Negative Negative [facility] Prothrombin time (PT)Ordered By: Abby Ng on 10-05-2023 PT Coag (PPP) [Time] 12.0 s Normal 9.0-12.9 [facility] Comment on above: A hematocrit value g reater than 55% may lead to inaccurate results in coagulation testing. Patients having hematocrit values >55% require a special collection tube for coagulation studies. Please contact the laboratory at [phone] for redraw instructions. Result Comment: A he matocrit value greater than 55% may lead to inaccurate results in coagulation testing. Patients having hematocrit values >55% require a special collection tube for coagulation studies. Please contact the laboratory at [phone] for redraw instructions. Performed By: #### C CANDACE WADE, CUBLD #### [facility] [address] [place] [id number] [facility] Renal function 2000 panelon 10-05-2023 Albumin BCP dye [Mass/Vol] 3.9 g/dL Normal 3.4-5.0 [facility] Comment on above: Performed By: #### 5 7021-8 #### SHWETA ROCHA ([id number]) [facility] ([facility]) [address] [place] [address] Anion gap [Moles/Vol] 13 mmol/L Normal 10-20 [facility] Comment on above: Performed By: #### 5 7021-8 #### SHWETA ROCHA ([id number]) [facility] ([facility]) [address] [place] [address] Calcium [Mass/Vol] 8.6 mg/dL Normal 8.6-10.6 [facility] Comment on above: Performed By: #### 5 7021-8 #### SHWETA ROCHA ([id number]) [facility] ([facility]) [address] [place] [address] Chloride [Moles/Vol] 105 mmol/L Normal 98-107 [facility] Comment on above: Performed By: #### 5 7021-8 #### SHWETA ROCHA ([id number]) [facility] ([facility]) [address] [place] [address] CO2 [Moles/Vol] 24 mmol/L Normal 21-32 [facility] Comment on above: Performed By: #### 5 7021-8 #### SHWETA ROCHA ([id number]) [facility] ([facility]) [address] [place] [address] Creatinine [Mass/Vol] 0.68 mg/dL Normal 0.50-1.05 [facility] Comment on above: Performed By: #### 5 7021-8 #### SHWETA BARNETT RIO KEY ([id number]) [facility] ([facility]) [address] [place] [address]871 GFR/1.73 sq M.predicted MDRD (S/P/Bld) [Vol rate/Area] mL/min/{1.73_m2} Normal >60 [facility] Comment on above: Result Comment: Calc ulations of estimated GFR are performed using the 2020 CKD-EPI Study Refit equation without the race variable for the IDMS-Traceable creatinine methods. https://jasn.asnjournals.org/content/early//ASN.81593 13102 Performed By: #### 5 7021-8 #### SHWETA ROCHA ([id number]) [facility] ([facility]) [address] [place] [address] Glucose [Mass/Vol] 94 mg/dL Normal 74-99 [facility] Comment on above: Performed By: #### 5 7021-8 #### SHWETA ROCHA ([id number]) [facility] ([facility]) [address] [place] [address] Phosphate [Mass/Vol] 2.8 mg/dL Normal 2.5-4.9 [facility] Comment on above: Result Comment: The performance characteristics of phosphorus testing in heparinized plasma have been validated by the individual laboratory site where testing is performed. Testing on heparinized plasma is not approved by the FDA; however, such approval is not necessary. Performed By: #### 5 7021-8 #### SHWETA ROCHA ([id number]) [facility] ([facility]) [address] [place] [address] Potassium [Moles/Vol] 3.9 mmol/L Normal 3.5-5.3 [facility] Comment on above: Performed By: #### 5 7021-8 #### SHWETA ROCHA ([id number]) [facility] ([facility]) [address] [place] [address] Sodium [Moles/Vol] 138 mmol/L Normal 136-145 [facility] Comment on above: Performed By: #### 5 7021-8 #### SHWETA ROCHA ([id number]) [facility] ([facility]) [address] [place] [address] Urea nitrogen [Mass/Vol] 10 mg/dL Normal 6-23 [facility] Comment on above: Performed By: #### 5 7021-8 #### SHWETA ROCHA ([id number]) [facility] ([facility]) [address] [place] [address] Serum or plasma anion gap de terminationOrdered By: Abby Ng on 10-05-2023 Anion gap [Moles/Vol] 11.0 mmol/L Normal 6.0-15.0 [facility] Comment on above: Performed By: #### C BC, CMP, CUBLD #### [facility] [address] Sodium [Moles/volume] in Ser um or PlasmaOrdered By: Abby Ng on 10-05-2023 Sodium [Moles/Vol] 138 mmol/L Normal 136-145 [facility] Comment on above: Performed By: #### C BC CMP, CUBLD #### [address] Specific gravity Test strip (U) [Rel density]Ordered By: Abby Ng on 10-05-2023 Specific gravity (U) [Rel density] 1.018 1.001-1.030 [facility] Troponin I High Sensitivityo n 10-05-2023 Troponin I High Sensitivity 2.6 pg/mL Normal 0.0-15.0 [facility] Comment on above: Result Comment: PERF ORMED BY: [place] [address] PATHOLOGIST JOB RECRUITER JASON WILSON M.D. Performed By: #### C BC CMPDEYVI #### [address] Troponin I.cardiac [Mass/vol ume] in Serum or Plasma by Detection limit <= 0.01 ng/Ordered By: Abby Ng on 10-05-2023 Troponin I.cardiac DL <= 0.01 ng/mL [Mass/Vol] 2.6 pg/mL 0.0-15.0 [facility] Urea nitrogen [Mass/volume] in Serum or PlasmaOrdered By: Abby Ng on 10-05-2023 Urea nitrogen [Mass/Vol] 12 mg/dL Normal 7-25 [facility] Comment on above: Performed By: #### C BCCANDACE CUBLD #### [address] Urinalysison 10-05-2023 Bilirubin,Urine Negative Normal Negative [facility] Comment on above: Order Comment: Name Collection Type:: Clean-Voided Midstream Performed By: #### C BC CMP, CUBLD #### [address] Glucose Ql (U) Normal Normal Normal [facility] Comment on above: Order Comment: Name Collection Type:: Clean-Voided Midstream Performed By: #### C BC, CMP, CUBLD #### [place] [address] [place] Nitrite,Urine Negative Normal Negative [facility] Comment on above: Order Comment: Name Collection Type:: Clean-Voided Midstream Performed By: #### C BC, CMP, CUBLD #### [address] Occult Blood,Urine Negative Normal Negative [facility] Comment on above: Order Comment: Name Collection Type:: Clean-Voided Midstream Result Comment: PERF ORMED BY: [place] [address] PATHOLOGIST JOB RECRUITER JASON WILSON M.D. Performed By: #### C BC, CMP, CUBLD #### [address] Protein,Urine Negative Normal Negative [facility] Comment on above: Order Comment: Name Collection Type:: Clean-Voided Midstream Performed By: #### C BC, CMP, CUBLD #### [address] Specificy [place],Urine 1.018 Normal 1.001-1.030 [facility] Comment on above: Order Comment: Name Collection Type:: Clean-Voided Midstream Performed By: #### C BC, CMP, CUBLD #### [address] Urobilinogen,Urine Normal Normal Normal [facility] Comment on above: Order Comment: Name Collection Type:: Clean-Voided Midstream Performed By: #### C BC, CMP, CUBLD #### [address] Urine Cultureon 10-05-2023 Bacteria identified Cx Nom (U) >100,000 colonies/ml mixed bacterial skin contaminants 2 Days PERFORMED BY: [place] [address] PATHOLOGIST JOB RECRUITER JASON WILSON M.D. Normal [facility] Comment on above: Performed By: #### C BC, CMP, CUBLD #### [address] [place] [address] [place] Urine appearanceOrdered By: Abby Ng on 10-05-2023 Appearance (U) Clear Normal Clear [facility] Comment on above: Order Comment: Name Collection Type:: Clean-Voided Midstream Performed By: #### C BC, CMP, CUBLD #### [facility] [address] [place], [place] [id number] [facility] Urine culture routineOrdered By: Abby Ng on 10-05-2023 Bacteria identified Cx Nom (U) 2 Days [facility] Urobilinogen Test strip (U) [Mass/Vol]Ordered By: Abby Ng on 10-05-2023 Urobilinogen (U) [Mass/Vol] Normal mg/dL Normal [facility] XR chest 2V*on 10-05-2023 XR chest 2V* [facility] [place] [address] [place] [address] XRay Report Signed Patient: Jerad Tracy MR#: [id number] 49 : 1975 Acct:[id number] Age/Sex: 48 / F ADM Date: 10/05/23 Loc: ER Room: Type: [facility] ER Attending Dr: Copies to: Abby Ng MD Ordering Provider: Abby Ng MD Date of Service: 10/05/23 XR/XR chest 2V*: Skin/Abscess/Foreign Body XR chest 2V* 10/05/2023 5:15 PM SIGNS AND SYMPTOMS: Ascites contributes, pain, fever PROTOCOL: Frontal and lateral radiographs of the chest COMPARISON: 06/01/2023 FINDINGS: The trachea is midline. The heart and mediastinal structures are within normal limits. The lung parenchyma is clear. The bony thorax is intact. Degenerative changes are present in the thoracic spine. There is a remote healed fracture of the midshaft of the right clavicle. There is a spinal cord stimulator with leads reaching the mid T8 vertebral body segment. XR/XR chest 2V* IMPRESSION: No acute cardiopulmonary pathology. Interval placement of a spinal cord stimulator with the leads reaching fatigue vertebral body segment. Impression dictated by: Yoan Ma M.D.10/05/2023 6:49 PM Dictation Location: [place] [address] Transcribed By: [facility] 10/05/231848 Dictated By: Yoan Ma II, MD 10/05/231847 Signed By: 10/05/231848 Normal [facility] pH of Urine by Test stripOrd ered By: Abby Ng on 10-05-2023 pH (U) 7.5 [pH] Normal 5.0-9.0 [facility] Comment on above: Order Comment: Name Collection Type:: Clean-Voided Midstream Performed By: #### C BC, CMP, CUBLD #### [facility] [address] [place] [address] ED Clinical Summaryon 2023 ED Clinical Summary Normal [facility] ED Patient Education Noteon 10-04-2023 ED Patient Education Note Normal [facility] ED Patient Summaryon 024 ED Patient Summary Normal [facility] ED Clinical Summaryon 2023 ED Clinical Summary [facility] Emergency Department [address] [place] [address] ED Clinical Summary PERSON INFORMATION Name: JERAD TRACY Age: 48 Years Sex: FEMALE : 1975 MRN: Acct#: Visit Reason: Surgical problem reevaluation; SKIN PROBLEM-BACK Arrival: 09/26/2023 11:09:47 Discharge: 09/26/2023 12:04:00 LOS: 000 00:55 Check In: 09/26/2023 11:09:47 Checkout:09/26/2023 12:04:00 Address: [address] [place] [id number] PCP: Cheyanne Mckeon PROVIDER INFORMATION Provider Role Assigned Unassigned Niki Reyes RN ED Nurse 09/26/2023 11:24:21 Daryl Cullen MD ED Provider 09/26/2023 11:27:14 VITALS INFORMATION Vital Sign Triage Latest Temperature Tympanic Temperature Temporal Artery 36.4 DegC Pulse Rate 94 bpm 94 bpm O2 Sat 96 % 96 % Respiratory Rate 20 br/min 20 br/min Blood Pressure /80 mmHg /80 mmHg MEDICAL INFORMATION Medications Given: Medication Dose Route sulfamethoxazole-trimet hoprim (Bactrim DS 800 mg-160 mg oral tablet) 1 tab(s) Oral acetaminophen-oxycodone (acetaminophen-oxycodon e 325 mg-5 mg oral tablet) 1 tab(s) Oral cephalexin 1000 mg Oral Allergy Information: HYDROcodone; penicillin PHYSICIAN DOCUMENTATION DISCHARGE INFORMATION: Discharge Disposition: Home Discharge Location: Home PATIENT EDUCATION INFORMATION Instructions: Pain Medicine Instructions, [id number]; Wound Infection, [id number]; Acute Pain, Adult Follow-Up: With: Address: When: Follow up with specialist Within 2 to 4 days Comments: Reviewed discharge care instruction. Continue with therapy as outlined by Dr. Cullen. Follow-up with your surgeon and specialist. Take your antibiotic as prescribed by your surgeon. Take Percocet as needed for pain. Return to ER for any worsening symptoms especially any symptom that concerns you. With: Address: When: Cheyanne Rosas [address] [place] [address] [place] [address] [facility] () Within 3 to 5 days DIAGNOSIS: Acute post-operative pain; Infected surgical wound Patient Understands: Yes - Patient/family/caregive r verbalizes understanding of instructions given Comment: [facility] ED Note - Physicianon 2023 ED Note - Physician Patient: GINI TRACY SA Age: 48 years Sex: FEMALE : 1975 Associated Diagnoses: Acute post-operative pain; Infected surgical wound Author: Daryl Cullen MD Basic Information Time seen: Date & time 09/26/2023 11:44:00. History source: Patient. Arrival mode: Private vehicle. Additional information: Chief Complaint from Nursing Triage Note : Chief Complaint 09/26/2023 11:17 EDT Chief Complaint Patient arrives with c/o pain and redness an incision site, she had back sugery on saturday and had a electro stimulator placed. Unable to reach combat control surgeon. . History of Present Illness The patient presents with wound infection. The onset was 2 days ago. 48-year-old female presented to ER for evaluation of pain at the lower back area. Patient stated that she had a stimulator placed on Saturday. Stated that it was done at [facility]. Stated that she had been prescribed Percocet 5 for pain. Stated that she has been taking medication, more than prescribed, due to the significant pain. She stated that symptoms worsen 2 days ago. She states that she had noted redness extending from the area. She stated that she had contacted surgeon, and unable to get through. Somehow, she had already been diagnosed with a skin infection postoperative, and been prescribed Bactrim and Keflex at the [facility] in [facility]. Apparently was called in yesterday. She only found out about it today, after we have reviewed med list. She denies any fever. She stated that she had significant pain. She stated that she does not like to take pain medication but because of the significant pain postoperative and ongoing infection, she stated that she has no other option except for come to the ER. Review of Systems Constitutional symptoms: No fever, Skin symptoms: Rash. Eye symptoms: Negative except as documented in HPI. Cardiovascular symptoms: No chest pain, Gastrointestinal symptoms: No abdominal pain, Genitourinary symptoms: No dysuria, Musculoskeletal symptoms: Back pain. Endocrine symptoms: Negative except as documented in HPI. Health Status Allergies: Allergic Reactions (Selected) Unknown HYDROcodone- No reactions were documented. Penicillin- No reactions were documented.. Medications: (Selected) Documented Medications Documented FLUoxetine: 60 mg, Oral, Daily, 0 Refill(s) Stool Softener with Laxative 50 mg-8.6 mg oral tablet: 0 Refill(s) cephalexin 500 mg oral capsule: 0 Refill(s) cyclobenzaprine: 0 Refill(s) oxyCODONE 5 mg oral tablet: 0 Refill(s) sulfamethoxazole-trimet hoprim 800 mg-160 mg oral tablet: 0 Refill(s). Past Medical/ Family/ Social History Medical history: No active or resolved past medical history items have been selected or recorded., Reviewed as documented in chart. Surgical history: No active procedure history items have been selected or recorded., Reviewed as documented in chart. Family history: No family history items have been selected or recorded., Reviewed as documented in chart. Social history: Social & Psychosocial Habits Alcohol 08/17/2023 Alcohol Use: Never 09/26/2023 Alcohol Use: Never Substance Use 08/17/2023 Substance use: Never 09/26/2023 Substance use: Never Tobacco 08/17/2023 Smoking tobacco use: Current everyday tobacco Number used per day: 1/2 ppd 09/26/2023 Smoking tobacco use: Current everyday tobacco Number used per day: 1/2 PPD Electronic Cigarette/Vaping 08/17/2023 Electronic Cigarette Use: Never 09/26/2023 Electronic Cigarette Use: Never , Reviewed as documented in chart. Problem list: Active Problems (1) Tobacco user , per nurse's notes. Physical Examination Vital Signs Vital Signs 09/26/2023 11:17 EDT Temperature Temporal Artery 36.4 DegC Peripheral Pulse Rate 94 bpm Respiratory Rate 20 br/min Systolic Blood Pressure 142 mmHg HI Diastolic Blood Pressure 80 mmHg SpO2 96 % Oxygen Therapy Room air . Measurements 09/26/2023 11:17 EDT Height 160 cm Weight 113.40 kg Weight Dosing 113.400 kg Body Mass Index Measured 44.3 kg/m2 . General: Alert, mild distress. Skin: Warm, dry, On examination, the patient's lower lumbar region, midline, surgical scar noted. Surgical ink, and tissue adhesive still in place. Extending from this area, laterally, appears to be mild erythema, noted over the dermis. Mildly tender around the area as well. No fluctuance. No drainage from the area. No signs of any abscess collection. Eye: Extraocular movements are intact, normal conjunctiva. Cardiovascular: Regular rate and rhythm. Respiratory: Lungs are clear to auscultation, respirations are non-labored. Gastrointestinal: Soft, Nontender, Obese. Musculoskeletal: Normal ROM, no tenderness, no swelling. Neurological: Alert and oriented to person, place, time, and situation. Medical Decision Making Differential Diagnosis:: Cellulitis, postoperative infection. Orders Launch Orders Pharmacy: cephalexin (Order): 1,000 mg, Or (more content not included)... Normal [facility] ED Patient Summaryon 024 ED Patient Summary [facility] - Emergency Department [address] [place] [address] PATIENT DISCHARGE INSTRUCTIONS Patient Information Name: JERAD TRACY Age: 48 Years Date of : 1975 Reason For Visit: Surgical problem reevaluation; SKIN PROBLEM-BACK Arrival Time: 09/26/2023 11:09:47 Primary Care Physician: Cheyanne Mckeon Attending Physician: Daryl Cullen MD Comment: Visit Diagnosis: Diagnoses This Visit Acute post-operative pain (G89.18) Infected surgical wound (T81.49XA) Surgical problem reevaluation ([id number]) The Pharmacy at [facility] is open Saturday through Saturday from 9A [...] alcohol and/or drug addiction problems; contact the [facility] 15/10 Crisis Hotline -Text 2VCEH zl [phone]. If you received any narcotics, sedation, or [...] sign any legal documents With: Address: When: Follow up with specialist Within 2 to 4 days Comments: Reviewed discharge care instruction. Continue with therapy as outlined by Dr. Cullen. Follow-up with your surgeon and specialist. Take your antibiotic as prescribed by your surgeon. Take Percocet as needed for pain. Return to ER for any worsening symptoms especially any symptom that concerns you. With: Address: When: [address], [place] [address] Business (1) Within 3 to 5 days Medication Information: The exam and treatment you received today in the [facility] Emergency Department were for an urgent problem and are not intended as complete care. It is important for you to follow up with a doctor, nurse practitioner, or physician?s carpenter assistant installer for ongoing care. If your symptoms become [...] so we can reach you if necessary. [facility] Emergency Department has provided you with a complete list of medications post discharge. Please inform your supervisor pig machine/provider of your visit and for further instruction on these medications. Any specific questions regarding your chronic medications and dosages should be discussed with your primary care physician(s) and/or pharmacist. New Medications [facility] [id number], [place] [id number], [phone] acetaminophen-oxycodone (acetaminophen-oxycodon e 325 mg-5 mg oral tablet) 1 tab(s) Oral (given by mouth) 3 times per day as needed for pain for 2 Days. Refills: 0. Additional medications on your home medication list not specifically addressed. Please contact the ordering physician if you have questions about these medications. cephalexin (cephalexin 500 mg oral capsule) cyclobenzaprine docusate-senna (Stool Softener with Laxative 50 mg-8.6 mg oral tablet) FLUoxetine 60 Milligram Oral (given by mouth) every day. oxyCODONE (oxyCODONE 5 mg oral tablet) sulfamethoxazole-trimet hoprim (sulfamethoxazole-trime thoprim 800 mg-160 mg oral tablet) Visit Information Allergies: Substance Reaction Symptoms Type Comments HYDROcodone Drug penicillin Drug Vital Signs: Vitals and Measurements this Visit (last charted value for your 09/26/2023 visit) Vital Signs This Visit Temperature Temporal Artery: 36.4 DegC Peripheral Pulse Rate: 94 bpm Respiratory Rate: 20 br/min Systolic Blood Pressure: 142 mmHg Diastolic Blood Pressure: 80 mmHg SpO2: 96 % Oxygen Therapy: Room air Measurements This Visit Height/Length Measured: 160 cm Weight Measured: 113.40 kg Weight Dosin.40 (more content not included)... Normal [facility] CT Spine Lumbar w/o Contrast on 09-25-2023 CT Spine Lumbar w/o Contrast Normal [facility] ED Clinical Summaryon 2023 ED Clinical Summary Normal [facility] ED Note-Physicianon 09-25-19 ED Note-Physician Normal [facility] Comment on above: Result Comment: Elec tronically Signed By: Landon Tidwell PA-C\.br\Date and Time Signed: 09/25/23 15:17 EDT\.br\Electronically Co-Signed By: Balbina Bryant M.D.\.br\Date and Time Co-Signed: 09/25/23 15:18 EDT ED Patient Education Noteon 09-25-2023 ED Patient Education Note Normal [facility] ED Patient Summaryon ED Patient Summary Normal [facility] FL FLUORO IMAGES NO CHARGEon 09-23-2023 FL FLUORO IMAGES NO CHARGE These images are not reportable by radiology and will not be interpreted by Radiologists. Normal [facility] ED Clinical Summaryon 2023 ED Clinical Summary Normal [facility] ED Note-Physicianon 09-21-19 ED Note-Physician Normal [facility] Comment on above: Result Comment: Elec tronically Signed By: Kristie Boss PA-C\.br\Date and Time Signed: 09/21/23 15:14 EDT\.br\Electronically Co-Signed By: Nikhil Tubbs DO\.br\Date and Time Co-Signed: 09/21/23 15:21 EDT ED Patient Education Noteon 09-21-2023 ED Patient Education Note Normal [facility] ED Patient Summaryon 024 ED Patient Summary Normal [facility] ED Clinical Summaryon 2023 ED Clinical Summary Normal [facility] ED Note-Physicianon 09-20-19 ED Note-Physician Normal [facility] Comment on above: Result Comment: Elec tronically Signed By: Robert Taylor PA-C\.br\Date and Time Signed: 09/20/23 11:16 EDT\.br\Electronically Co-Signed By: Jorge Mcintosh DO\.br\Date and Time Co-Signed: 09/20/23 18:45 EDT ED Patient Education Noteon 09-20-2023 ED Patient Education Note Normal [facility] ED Patient Summaryon 024 ED Patient Summary Normal [facility] XR SACRUM COCCYX 2+ VIEWSon 09-19-2023 XR SACRUM COCCYX 2+ VIEWS Interpreted By: Susie Brennan, STUDY: XR SACRUM COCCYX 2+ VIEWS; 09/19/2023 1:13 pm INDICATION: Signs/Symptoms:fall. COMPARISON: None. ACCESSION NUMBER(S): [id number] ORDERING CLINICIAN: GERMAINE LLOYD FINDINGS: Three views of the sacrum/coccyx obtained. No focal disruption of the sacral or coccygeal contours to suggest acute displaced fracture. Sacral neural arches are grossly intact and symmetric. SI joints are grossly symmetric. Presumed tubal ligation clips overlying the upper pelvis. IMPRESSION: No evidence of acute displaced sacral or coccygeal fracture. MACRO: None. Signed by: Susie Brennan 09/19/2023 1:41 PM Dictation workstation: [id number] Normal [facility] Family Medicine Office/Clini c Noteon 09-17-2023 Family Medicine Office/Clinic Note Normal [facility] Comment on above: Result Comment: Elec tronically Signed By: Dax Lira PA-C\.br\Date and Time Signed: 09/17/23 18:07 EDT Patient Educationon 09-17-19 24 Patient Education Normal [facility] HCV RNA panel LINDSEY+probeon HCV RNA LINDSEY+probe [Log units/Vol] [facility] Comment on above: Order Comment: Repor table [...] the Molecular Diagnostic Laboratory, Department of Pathology, [facility]. Result Comment: Not calculated Performed By: #### 5 7021-8 #### SHWETA ROCHA ([id number]) [facility] ([facility] [address] [place] [address] HCV RNA LINDSEY+probe Qn Not detected Normal Not detected [facility] Comment on above: Order Comment: Repor table Range: 15-100,000,000 IU/mL.The javier HCV is an in vitro nucleic acid amplification test for both the detection and quantitation of hepatitis C virus (HCV) RNA, in human EDTA plasma or serum, of HCV antibody positive or HCV-infected individuals on the javier Play[employer]/8800 Systems. Dual probes are used to detect [...] the Molecular Diagnostic Laboratory, Department of Pathology, [facility]. Performed By: #### 5 7021-8 #### SHWETA ROCHA ([id number]) [facility] ([facility] [address] [place] [address] Hepatic function 2000 panelo n 09-16-2023 Albumin BCP dye [Mass/Vol] 4.1 g/dL Normal 3.4-5.0 [facility] Comment on above: Performed By: #### 5 7021-8 #### SHWETA ROCHA ([id number]) [facility] ([facility] [address] [place] [address] ALP [Catalytic activity/Vol] 96 U/L Normal 33-110 [facility] Comment on above: Performed By: #### 5 7021-8 #### SHWETA ROCHA ([id number]) [facility] ([facility]) [address] [place] [address] ALT With P-5'-P [Catalytic activity/Vol] 21 U/L Normal 7-45 [facility] Comment on above: Result Comment: Katia ents treated with Sulfasalazine may generate falsely decreased results for ALT. Performed By: #### 5 7021-8 #### SHWETA ROCHA ([id number]) [facility] ([facility]) [address] [place] [address] AST With P-5'-P [Catalytic activity/Vol] 17 U/L Normal 9-39 [facility] Comment on above: Performed By: #### 5 7021-8 #### SHWETA ROCHA ([id number]) [facility] ([facility]) [address] [place] [address] Bilirubin [Mass/Vol] 0.2 mg/dL Normal 0.0-1.2 [facility] Comment on above: Performed By: #### 5 7021-8 #### SHWETA ROCHA ([id number]) [facility] ([facility]) [address] [place] [address] Bilirubin.direct [Mass/Vol] 0.1 mg/dL Normal 0.0-0.3 [facility] Comment on above: Performed By: #### 5 7021-8 #### SHWETA BARNETT RIO KEY ([id number]) [facility] ([facility]) [address] [place] [address] Protein [Mass/Vol] 6.7 g/dL Normal 6.4-8.2 [facility] Comment on above: Performed By: #### 5 7021-8 #### SHWETA BARNETT RIO KEY ([id number]) [facility] ([facility]) [address] [place] [address] XR ELBOW RIGHT 3+ VIEWSon XR ELBOW RIGHT 3+ VIEWS STUDY: Elbow Radiographs; 09/16/2023 4:48 PM INDICATION: Injury to the right elbow. COMPARISON: None Available. ACCESSION NUMBER(S): [id number] ORDERING CLINICIAN: GERMAINE BLAIR TECHNIQUE: Five view(s) of the right elbow. FINDINGS: There is no displaced fracture. The alignment is anatomic. No soft tissue abnormality is seen. There is no joint effusion. IMPRESSION: No acute bony abnormalities. Signed by Johan Connor MD [facility] Coding Summary.on 09-12-2023 Coding Summary. Normal [facility] Provider Letteron 09-12-2023 Provider Letter Normal [facility] Discharge Instructionson Discharge Instructions [id number]#1.00T IFF Normal [facility] MRI Spine Lumbar w/o Contras ton 09-10-2023 MRI Spine Lumbar w/o Contrast Normal [facility] RAD - Preliminary Cat Scan R eporton 09-10-2023 RAD - Preliminary Cat Scan Report [id number]#1.00T IFF Normal [facility] Consent for Treatmenton 08-23 Consent for Treatment [id number]#1.00T IFF Normal [facility] ED Clinical Summaryon 2023 ED Clinical Summary Normal [facility] ED Note-Physicianon 09-09-19 ED Note-Physician Normal [facility] Comment on above: Result Comment: Elec tronically Signed By: Landon Tidwell PA-C\.br\Date and Time Signed: 09/09/23 23:52 EDT\.br\Electronically Co-Signed By: Elisa Sánchez DO\.br\Date and Time Co-Signed: 09/09/23 23:54 EDT ED Patient Education Noteon 09-09-2023 ED Patient Education Note Normal [facility] ED Patient Summaryon 024 ED Patient Summary Normal [facility] RAD - MRI Screening Formon 0 09-09-2023 RAD - MRI Screening Form [id number]#1.00 TIFF Normal [facility] ED Clinical Summaryon 2023 ED Clinical Summary Normal [facility] ED Note-Physicianon 09-07-19 ED Note-Physician Normal [facility] Comment on above: Result Comment: Elec tronically Signed By: Zhane Castro PA-C\.br\Date and Time Signed: 09/07/23 00:11 EDT\.br\Electronically Co-Signed By: Pedro Pablo Fletcher DObr\Date and Time Co-Signed: 09/07/23 01:06 EDT ED Patient Education Noteon 09-07-2023 ED Patient Education Note Normal [facility] ED Patient Summaryon 024 ED Patient Summary Normal [facility] Consent for Treatmenton 08-23 Consent for Treatment [id number]#1.00T IFF Normal [facility] Consent for Treatmenton 08-23 Consent for Treatment [id number]#1.00T IFF Normal [facility] Discharge Instructionson Discharge Instructions [id number]#1.00 TIFF Normal [facility] ED Clinical Summaryon 2023 ED Clinical Summary Normal [facility] ED Note-Physicianon 09-02-19 24 ED Note-Physician Normal [facility] Comment on above: Result Comment: Elec tronically Signed By: Jorge Mcintosh DO\Adrienbr\Date and Time Signed: 09/02/23 18:33 EDT ED Patient Education Noteon 09-02-2023 ED Patient Education Note Normal [facility] ED Patient Summaryon 024 ED Patient Summary Normal [facility] Progress Note-Nurseon 2023 Progress Note-Nurse left with ride Normal [facility] Consent for Treatmenton Consent for Treatment [id number]#1.00T IFF Normal [facility] Discharge Instructionson Discharge Instructions [id number]#1.00 TIFF Normal [facility] ED Clinical Summaryon 2023 ED Clinical Summary Normal [facility] ED Note-Nursingon 08-30-2023 ED Note-Nursing pt states she is mitra ng driven home by her who is at bedside Normal [facility] ED Note-Physicianon 08-30-19 ED Note-Physician Normal [facility] Comment on above: Result Comment: Elec tronically Signed By: Pati MILES, April Palencia\.br\Date and Time Signed: 08/30/23 19:02 EDT\.br\Electronically Co-Signed By: Nikhil Tubbs DO\.br\Date and Time Co-Signed: 08/30/23 19:48 EDT ED Patient Education Noteon 08-30-2023 ED Patient Education Note Normal [facility] ED Patient Summaryon 024 ED Patient Summary Normal [facility] Coding Summaryon 08-27-2023 Coding Summary HTMLBase 64 QhvpupjjXTt1eIx+PGhlYWQ +BW9GKOKhK85niFZgbR1aX7 NMTElOSywgQVBQTElOSyIgb aBjDT0adOTjOMEj IC8+LY5oMRHsPreitJKyf5D 5wEN7M16rve2qMKzsbXQ6OC OaEfMvyibdc0vdcHg1OSqpK mluOyBt IYKmiO68SZQ9wV40Pp03xZJ lcWEwg2pgiDv8VtRgXAIxXW L7gSrbIDrsn5VcVQCmD05ir AGvd3F9 EQZneTttmTIrIxEixGP3qV6 fGAvpsctzp8lmxntrYht9lb 66nYXve1W5yHF3C0YxopE3P GJvbGQg RxxfqMYNgJ8bnwzih8redvt jQgHeBUBhELr1SDb5JLWtbZ rdByLxEO32KDW3GLDtndOyK 2FsLWFs gWvnAgM9v7F5Tx6UP6SETvv zK6TMVSBTMDqhyNT+PC90cj 65S9AtYxbaGyq9YOBvOJB1s EO4fK4r RVEfAVsjb9A3gWV3S0DmuhV ekl3gu0bsYIJrYHynG41woO Hjf3J7TQDsgGN5YYMkxCugA iBzaG93 Oyc+WWFmpOial5CtOicef3a op9okgTu4SwooOMTvzyYpcC arEOB9j3XdZp7tTNTxoMF5g LD6wS0j PpXwOsC0MRdyH196KhCufCG eHtvbI28fZ3WnxPP+PHRyPj d6MAAqvVinTE3aE8NtKDTnl mctbGVm nYbmJW8qKPQeifvsVCJiaX6 gREKmV1n3UaJeIyY7LXzeS4 KzCTHfncmfDz64jW6oSxIjJ vV4UQbf M4SgddM6AHFixMOuQIexRNJ 3U47tn7Z7SKFyVBNnRRF3sM Q7sQ7hrIkecdtxmBXcgMvcn mVydGlj EHvyGUcuZ231UIUyoKmtReU vZGluZyBEYXRlOiAgMDYvMD QvMjAyNDwvdGQ+QJQoDZU2b WxlPSAn bRVnBTdeDg0xrZhprJkuRW6 bPSWmgbppNDYeyI9lECAjmT SytChoID3vCYCjsmxxb560Z iAxMHB0 EAIouAPdR0WhcS4zCyIiVQA eTCMyD6ZzqVWkMZddQ365AW dhVjM3DJJcswEeV9AsXAUat WduOiB0 l6C2Zf5Xt0SuuyysI3AgoHI uNrKnTcxeQMo7Q7WhTpdqbO I+KF67BHKzPD19ZIj8VMQ6w WxlPSdi KBMiW2EycO1mGdIkKVSpEFY kOyc+PHRhYmxlIHdpZHRoPS eaXKBpTwTcmBlpHS3vLg4bD GVyLWNv bOwjtMPrXxEas5lgNTUrWBp bRW3oxWmvX1ResOV9IKBnk0 f6Qo67A16mF0ClhKI+PGNvb TA2iID4 mH9fWwJwKrL2JCwgK261IzT qcPLoHiitv9jve5kqyYh4Kl G1PAAfwyBdmEsaFAT1v5McF t46B67x IHdpZHRoPSIxNSUiIHZhbGl oin6mrX5lTg5+JFLnnIN7aO G6wA2oYgMaZrR3BMhcH282R nRvcCIv Ltplk4hni6vosLv4HkIdCBI fpwOcjFsiKOP8c4XxHn40B2 CmcGvud8MzGoq6bz87oXAon 1Q1jDC6 L6AeFNCuqzagqDIbnYkfQV5 qBHLhmamhEEFalA5jDGNsU5 n8TuFiQiO4WMafN6IlxfG1C GJvbGQg ANYwyNWCjZ0kappbd2udrvx iMcRyOJLtCUq9AYo5DIFbzQ xnKnUqLNT9GnE6IBY6oSCmk D3exWrc ycjbuT8uRkq+HDS3bZRucCZ TBG0qHdcytGB+KBStQSM4eA veAPpmODYsbT1jCJEnY5d8P iAwLjA1 RSlfP2FjgdB6NFRpxWZxODP bzPMCfJ0mnsfnh8ukbtdsMu WuAOInNAn3LFu2SQQtbWyyI iBsZWZ0 CnI2MJB6uWGwtT1wlFxdgjy bwL7hTgl+GqhrwBcaTQJ8SM v9R0ZeRzf8MUIlvWuwVC6ij GFkZGlu Mh2onZhnaMzzFP5mWGLedkg ki928WgGvh7qfZEIzjOUfFP wkXMC5L84qw8L6SOEgZPVqL TW3zEB5 gK3qwMdidonasJRxrBndoqA gjUnqWLhrMYryE035PMCpuN zlUjTcUTy4B8PsKzi6XFUcz BagVU9u oZWeAKtrYc1jyGirxTdzLU9 pHVWvzasqn275EdAtt5zxAL IomDJnMIrlDPQ1P28iw1T6S CMwMDAw RIN2mRQ5cK5lpTzrabzilJD mdDsgdmVydGljYWwtYWxpZ2 94FFIalMolGcKeqFz0S1QyO mc9GUCp tTvcLK9auFOuHIqcUi5rsKv heSrvFL5dAJTwyvhdn062Am Kuf8bzZRFixOZhQNcjBPL7Q 09uc5F7 DUFoGOLzBLI1iBA8dN0zuGw nbjogbGVmdDsgdmVydGljYW wfMOqcA599UKJweBohQcCzn GllbnQg ZGypSYr6V5KiBvperBF+PC9 5LPFnFG33iRZehYZob2ixvJ e8NzItFMSjQIU2lXioBJisy 3JkZXIt W57qoXYso8Y5LTGubUfinJO gTgTvxCF9bK9lISbuepwfb2 othhzvQkcvv6wciu64eN61Z 29sIHdp ZHRoPSIzMCUiIHZhbGlnbj0 idQ7iSv2+QGZkiUI7fMT5zF 6uUQIoCmN3HAvcK254HfXcx CIvPjxj o5pfv6sfbFg4PzG2HNXjhtK suAjnRSI4t0QsQn59H03hXQ dpZHRoPSIyMCUiIHZhbGlnb f7pmZ7d Ii8+FRMgeNI2nEF8kY5uQfD oPgY4ASdjT115VaCzdGJsZv clI45fI7VcaGX+WAXqDrj4Y CBzdHls CT6daZJeMTveWt8mPCE8IpQ lOoDtRWlnC3EvXKNjgtxrkw bfwZS1GJDkWOBjjF31Lb6be DogMTBw uZQWoH2wzyhdc9rxqlquYiZ zITTmASb0FGl7CGWnrOolRs CxINS1IiC8XEV3oMTltZ5mi Glnbjog uJ2oD4UeTHRgcfbkUu15pF0 wDmWyYgB0FTomAfz+TElFQi csIITMGIVAJHTAWdfJZrG8P 4TzTsw7 BCYigGsgVK2ahUZrMFygDh4 hiOdsnZwdMH1oKBYseewhDU DaqR1vXWDmmDVayArxWL6uE TBpbjtm q409UfLtYKK3GINjzYBqK2L lcK8mNvKyADRjHHQfB4SwxK OrXWkiT984KTxoVqY5KJAfa xQsN4Rj BBNrxQjdXtU2j6E9Aw0fNm5 uIB3uHGw7SC73OP67bQFox1 D3mXR0T1JyOLEinvbopjopv SF5RBLb SWFpdC40pZXjXDmaBd6of0U 3b087JNWeASCvbA24Wp0jxD hdZYQefWOVwU0axeurq4bvf jogIzAw DWBuPQd8BEi6HXFlxGhaScB vNWB5JcB4UWW6fHAelX9ytD zhgcsssG3zQtd+NDYgWWVhc oQ8X7Tf Gfc3ZWBaiRajWX4mkAGnEMz oJf0evTbbwTnjKW3qUMWouz osGKFayV9lMSQrdXHxeVjxY R5qXUOu zqacq236RdDkFHK6WLAskSB wB6VjpH4cZcIsNNOeYYHaM5 KayKWjHKmeU063QWewRvU4D HZlcnRp N0RsMIKxwGyaZmG1i3K4Sf6 LLK2EDVT3I0XvGqf7RWZvjD eeSK7fdYFmIHrqEx3fyJlyg QxhZO8e IAOhzdtgCPKsjZ8cUXNyuRB epFtkBR1zZFThmatvn521Cf NvTHQ6GVOijDUaF5IplF4vX iAjMDAw TMAzF7QxsYXiHOamH351HKu dSyS5AUYurnBiS0EjZAJphM cmRaB3o6W6Cu1YbBYyS9QwT 3x2P3Iz PjwvdHI+OA56HCTnZF56eRY nhAGjz3yxyAt0SyHyYUErYJ X1oIreWNcxu2AmNZDfA11ny WZuu2A4 JIHsjDbqvPClGnHfnBS5rD8 qXGkaycfjp6dhlwdcMhsjs1 ewep12iT83I97qTWcmQMLcE SIzMCUi IIJfbMyakm3qzF2bLn9+PGN mpAL5hAA8bW0pDoXxYxX3LJ glT216MnHsyPNkLhopl2axe 8lwdKn4 YtYaDGTserKkdSuoANR4l0T xKg43S75dSOviIAXwGWEgGX PqLWMswJceld3ypM1dQp8+P A1dv3ej bw46aX26rDI+DJOxYCJ5yLy sYRwnVKJxcG6gXBvrNoR1KP YaImSlaI04rMCoQFqkJz9tl WdodDog SQ4cEGCqltqmg332GrHhv1m aXAPnnVGfCBuuCYL5W77wo3 Q1JEWbCGOfLIU1bXH9nR6pu Glnbjog bGVmdDsgdmVydGljYWwtYWx xK460MWLitCtaBkBgwVHxC4 oeshFPVR4xGxbnxUU+PHRkI HA0rApi ETesJJWxcT0pBFUnY2s1LcM bZkN8YCdfR8SiizI3WVVwhE EzSVMtoCGRwW3kqjcvr4qvz jogIzAw NEWnJXs6ADs7NXGkeIgyQjL uYYM9MmV4RSF8iKEyxL1llN vvygcrxR7vXis+RklOOjwvd GQ+PHRk THL8nDthVCllCOZunR0tTZM kX6c4NfVoRvJ7ZCmmD3Oakq O6MYXywENzLGPndZVSnU8nr amgy9ka aioiAjXmXSXcSXu5URt7TBV laDrnScMyBVE7EnW6MDG3oK GtuG3icMkhojbvhT4lPlc+T VJOOjwv dGQ+BHZtCUC3wVkfYPfhNYB njH9hWAXpK0v3QfFzIoY7GU htD1AbnlX9LSDmlEKcXGFmw MRVbQ0w xveex9eamclxOyNyUCFnOUo 0SZf0NGDvaDiiVkEgNLS4Px Q1QPO9sNUplB9akNzgqvyws G9wOyc+ WAT6YNK4FI50PL27K3FvYnh vdGFibGU+PHRhYmxlIHdpZH UbHTxqCVSsUrSwpZjyUB1cV x4oWGQx LWN (more content not included)... [facility] FL FLUORO IMAGES NO CHARGEon 08-21-2023 FL FLUORO IMAGES NO CHARGE These images are not reportable by radiology and will not be interpreted by Radiologists. [facility] VERAB/VERIFY ABORHon 024 ABO group Nom (Bld) O Normal [facility] Comment on above: Performed By: #### 5 902-2 #### JOLENE Cantu ([id number]) [facility] ([facility]) [address] [place] [address] D Ag Ql (Bld) Positive [facility] Comment on above: Performed By: #### 5 902-2 #### JOLENE Cantu ([id number]) [facility] ([facility]) [address] [place] [address] Verify ABO/Rh Group Test (VE RAB)on 08-21-2023 ABO group Nom (Bld) O [facility] D Ag Ql (Bld) Positive [facility] XR tomography Unspecified diana dy regionon 08-21-2023 These images are not reportable by radiology and will not be interpreted by Radiologists. IMAGING ED Clinical Summaryon 2023 ED Clinical Summary [facility] Emergency Department [address] [place], [place] [id number] ED Clinical Summary PERSON INFORMATION Name: JERAD TRACY Age: 48 Years Sex: FEMALE : 1975 MRN: Acct#: Visit Reason: Back pain; FELL , LOWER BACK PAIN Arrival: 08/17/2023 15:31:41 Discharge: 08/17/2023 17:29:00 LOS: 000 01:58 Check In: 08/17/2023 15:31:41 Checkout:08/17/2023 17:29:00 Address: [facility] [address] PCP: Cheyanne Mckeon PROVIDER INFORMATION Provider Role Assigned Unassigned Peter Chavez DO ED Provider 08/17/2023 16:07:25 Gayla Miranda [employer]CTION [employer]ST ESTIMATOR Nurse 08/17/2023 16:08:50 VITALS INFORMATION Vital Sign Triage Latest Temperature Tympanic Temperature Temporal Artery Pulse Rate O2 Sat 100 % 100 % Respiratory Rate 16 br/min 16 br/min Blood Pressure /78 mmHg /78 mmHg MEDICAL INFORMATION Medications Given: Medication Dose Route acetaminophen-oxycodone (acetaminophen-oxycodon e 325 mg-5 mg oral tablet) 1 tab(s) [...] area. [facility] [place] [facility]. Patient tripped over a hose [...] paraspinal musculat (more content not included)... Normal [facility] ED Note - Physicianon 2023 ED [...] area. Patient supposed to have surgery at [facility] next month. Patient tripped over a hose [...] for close (more content not included)... Normal [facility] ED Patient Summaryon 024 ED Patient Summary [facility] - Emergency Department [address] [place] [address] PATIENT DISCHARGE INSTRUCTIONS Patient Information Name: JERAD TRACY Age: 48 Years Date of : 1975 Reason For Visit: Back pain; FELL , LOWER BACK PAIN Arrival Time: 08/17/2023 15:31:41 Primary Care Physician: Cheyanne Mckeon Attending Physician: Peter Chavez DO Comment: Visit Diagnosis: Diagnoses This Visit Acute lumbosacral myofascial strain (S39.012A) Back pain ([id number]) The Pharmacy at [facility] is open Saturday through Saturday from 9A [...] alcohol and/or drug addiction problems; contact the [facility] 15/10 Crisis Hotline -Text 2GJYP bu 356267. If you received any narcotics, sedation, or [...] and treatment you received today in the [facility] Emergency Department were for an urgent problem and are not intended as complete care. It is important for you to follow up with a doctor, nurse practitioner, or physician?s carpenter assistant installer for ongoing care. If your symptoms become [...] so we can reach you if necessary. [facility] Emergency Department has provided you with a complete list of medications post discharge. Please inform your supervisor pig machine/provider of your visit and for further instruction [...] a treatme (more content not included)... Normal [facility] XR Spine Lumbosacral 2 or 3 [...] MD 08/17/23 5:42 pm Technologist: Wendy TRAN [facility] CT Head or Brain w/o Contras ton 08-16-2023 CT Head or Brain w/o Contrast Normal [facility] CT Spine Cervical w/o Contra ston 08-16-2023 CT Spine Cervical w/o Contrast Normal [facility] Discharge Instructionson Discharge Instructions [id number]#1.0 0TIFF Normal [facility] ED Clinical Summaryon 2023 ED Clinical Summary (Inserted Image. Darlene ble to display) [address] [address] ED Clinical Summary Person Information Name: Jerad Tracy/[facility] Age: 48 Years : 1975 Sex: Female PCP: Unavailable, Physician Marital Status: Phone: Race: White Ethnicity: Not or Language: Guatemalan Visit Reason: Back pain; back pain Acuity: 4 Enc Type: Emergency Med Service: Emergency Medicine Arrival: 08/16/2023 15:20:16 Discharge: 08/16/2023 16:38:00 LOS: 000 01:18 Checkin: 08/16/2023 15:20:16 Checkout: 08/16/2023 16:38:00 Dispo Type: Home or Self Care Address: [address] [place] [id number] Provider Notes: Diagnosis: 1:Chronic back pain Problems [...] for 7 Days. Refills: 0. Last Dose: __ esomeprazole (NexIUM 20 mg oral delayed release capsule) 1 Capsules Oral (given by mouth) every day. Last Dose: __ methylPREDNISolone (Medrol Dosepak 4 mg oral tablet) 1 Packets Oral (given by mouth) As Indicated for 6 Days. as directed on package labeling. Refills: 0. Last Dose: __ ondansetron (Zofran 4 mg oral tablet) 1 Tabs Oral (given by mouth) every 8 hours as needed as needed for nausea/vomiting. Refills: 0. Last Dose: __ Other Medications dicyclomine (Bentyl 10 mg oral [...] Caring for Your Back Throughout the Day [facility] Poison Help line: . [facility] Hotline: [place] Tobacco Quit Line: [facility] ([place], [place]) [address]: [phone] [facility] ([place], [place]) [address]: [phone] [facility] [address], [place]: [phone] Normal [facility] ED Clinical Summary Normal [facility] ED Note-Physicianon 08-16-19 ED Note-Physician Chief Complaint Patient was traveling in the car from [place] and has started having lower back spasms. [...] more ciga (more content not included)... Normal [facility] ED Note-Physician Normal [facility] Comment on above: Result Comment: Elec tronically Signed By: Annette Watkins, Balbina Sparks\.br\Date and Time Signed: 08/16/23 03:58 EDT ED Patient Education Noteon 08-16-2023 ED Patient Education Note Normal [facility] ED Patient Summaryon 024 ED Patient Summary [facility] RAD - Preliminary Cat Scan R eporton 08-16-2023 RAD - Preliminary Cat Scan Report [id number]#1.0 0TIFF [facility] RAD - Preliminary Cat Scan Report [id number]#1.0 0TIFF [facility] Workers Comp Formson 024 Workers Comp Forms [id number]#1.0 0TIFF [facility] XR Spine Lumbosacral 2 or 3 Viewson 08-16-2023 XR Spine Lumbosacral 2 or 3 Views Normal [facility] XR Spine Thoracic 3 Viewson 08-16-2023 XR Spine Thoracic 3 Views Normal [facility] Consent for Treatmenton 07-24 Consent for Treatment [id number]#1.00T IFF [facility] Consent for Treatmenton 07-24 Consent for Treatment [id number]#1.00 TIFF Normal [facility] Consultation Noteon 08-14-19 Consultation Note Normal [facility] Comment on above: Result Comment: Elec tronically Signed By: Domenic Sher DO.br\Date and Time Signed: 08/14/23 16:33 EDT Office/Clinic Note-Physician on 08-14-2023 Office/Clinic Note-Physician [id number]#1.00 TIFF Normal [facility] Patient Correspondenceon Patient Correspondence [id number]#1.00 TIFF Normal [facility] Patient Correspondence [id number]#1.00 TIFF [facility] Patient History Officeon Patient History Office [id number]#1.00 TIFF [facility] Consent for Treatmenton 07-24 Consent for Treatment [id number]#1.00T IFF [facility] Discharge Instructionson Discharge Instructions [id number]#1.00 TIFF [facility] ED Clinical Summaryon 2023 ED Clinical Summary Normal [facility] ED Note-Nursingon 08-12-2023 ED Note-Nursing This nurse went to discharge patient and recheck vitals and patient has eloped from the department without her instructions. Normal [facility] ED Note-Physicianon 08-12-19 ED Note-Physician [facility] Comment on above: Result Comment: Elec tronically Signed By: Elisa Sánchez DO.rufino\Date and Time Signed: 08/12/23 22:53 EDT ED Patient Education Noteon 08-12-2023 ED Patient Education Note Normal [facility] ED Patient Summaryon 024 ED Patient Summary Normal [facility] ED NOTESon 08-10-2023 Php Ed Note ED Note: Last filed note HNO ID: [id number] Author: Yarelis Finley RN Service: ? Author Type: Registered Nurse Filed: 08/09/23 2318 Note Text: Discharge instructions, medications and follow up discussed with patient with patient's understanding verbalized. Patient left the department in no acute distress. Normal [facility] ED PROVIDER NOTESon 08-10-19 [facility] Ed Provider Note ED Provider Note: L ast filed note HNO ID: [id number] Author: Keke Payne MD Service: ? Author Type: Physician Filed: 08/09/23 9179 Note Text: [facility] Keke Payne MD Attending Physician [...] collaboration in this patient's emergency department care. __ Very pleasant 48-year-old woman presents with acute on chronic back pain, she has upcoming lumbar surgery in 2 weeks at [facility]. She just had a 3-hour car [...] lower back pain with radicular pain Normal [facility] Ed Provider Note ED Provider Note: Pepe blas filed note HNO ID: [id number] Author: Courtney Gibbs MD Service: Emergency Medicine [...] scheduled for surgery later this month in [place]. Patient states that she is in town [...] and Sexual Activity Drug use: Never ALLERGIES: Hydrocodone-acetaminoph en and Penicillin g PHYSICAL EXAM: VITAL SIGNS: The Initial Triage assessment is as follows: ED Vitals Temp: 98 F (36.7 C) (08/09/232145) Temp Source: Oral (08/09/232145) Pulse: 84 (08/09/232145) Resp: 16 (08/09/232145) BP: 139/65 (08/09/232145) MAP: Noninvasive: 94 mmHg (08/09/232145) SpO2: 97 % (08/09/232145) Oxygen Liters Per Minute: 0 LITERS PER MINUTE (08/09/232319) Oxygen Source: Rm Air (08/09/232145) Vitals during ED course were reviewed and [...] topical patc (more content not included)... Normal [facility] ED TRIAGEon 08-09-2023 [facility] Ed Triage Note ED Triage Note: Last filed note HNO ID: [id number] Author: Juan Gustafson RN Service: ? Author Type: Registered Nurse Filed: 08/09/23 5184 Note Text: Patient arrives through triage for complaints of chronic back pain that is worsened by a 3.[address] Endorses history of L 4-5 disc herniation. A/O x4 with respirations even and unlabored. Normal [facility] Consent for Treatmenton 07-23 Consent for Treatment [id number]#1.00T IFF Normal [facility] Discharge Instructionson Discharge Instructions [id number]#1.0 0TIFF Normal [facility] ED Clinical Summaryon 2023 ED Clinical Summary Normal [facility] ED Note-Physicianon 08-05-19 ED Note-Physician Normal [facility] Comment on above: Result Comment: Elec tronically Signed By: Landon Tidwell PA-C\.br\Date and Time Signed: 08/05/23 21:19 EDT\.br\Electronically Co-Signed By: Pedro Pablo Fletcher DO\.br\Date and Time Co-Signed: 08/05/23 22:58 EDT ED Patient Education Noteon 08-05-2023 ED Patient Education Note Normal [facility] ED Patient Summaryon 024 ED Patient Summary Normal [facility] Basic metabolic 2000 panelon 08-02-2023 Anion gap [Moles/Vol] 15 mmol/L Normal - [facility] Comment on above: Performed By: #### 5 902-2 #### JOLENE Cantu ([id number]) [facility] ([facility]) [id number] [place] [address] Calcium [Mass/Vol] 8.8 mg/dL Normal 8.6-10.6 [facility] Comment on above: Performed By: #### 5 902-2 #### JOLENE Cantu ([id number]) [facility] ([facility]) [address] [place] [address] Chloride [Moles/Vol] 105 mmol/L Normal 98-107 [facility] Comment on above: Performed By: #### 5 902-2 #### JOLENE Cantu ([id number]) [facility] ([facility]) [address] [place] [address] CO2 [Moles/Vol] 24 mmol/L Normal 21-32 [facility] Comment on above: Performed By: #### 5 902-2 #### JOLENE Cantu ([id number]) [facility] ([facility]) [address] [place] [address] Creatinine [Mass/Vol] 0.63 mg/dL Normal 0.50-1.05 [facility] Comment on above: Performed By: #### 5 902-2 #### JOLENE Cantu ([id number]) [facility] ([facility]) [address] [place] [address] GFR/1.73 sq M.predicted MDRD (S/P/Bld) [Vol rate/Area] mL/min/{1.73_m2} Normal >60 [facility] Comment on above: Result Comment: Calc ulations of estimated GFR are performed using the 2020 CKD-EPI Study Refit equation without the race variable for the IDMS-Traceable creatinine methods. https://jasn.asnjournals.org/content//ASN.36889 33208 Performed By: #### 5 902-2 #### JOLENE Cantu ([id number]) [facility] ([facility]) [address] [place] [address] Glucose [Mass/Vol] 87 mg/dL Normal 74-99 [facility] Comment on above: Performed By: #### 5 902-2 #### JOLENE Cantu ([id number]) [facility] ([facility]) [id number] [place] [address] Potassium [Moles/Vol] 4.8 mmol/L Normal 3.5-5.3 [facility] Comment on above: Performed By: #### 5 902-2 #### JOLENE Cantu ([id number]) [facility] ([facility]) [address] [place] [address] Sodium [Moles/Vol] 139 mmol/L Normal 136-145 [facility] Comment on above: Performed By: #### 5 902-2 #### JOLENE Cantu (22782) [facility] ([facility]) [address] [place] [address] Urea nitrogen [Mass/Vol] 10 mg/dL Normal 6-23 [facility] Comment on above: Performed By: #### 5 902-2 #### JOLENE Cantu ([id number]) [facility] ([facility]) [address] [place] [address] Blood type and Indirect anti body screen panel (Bld)on 08-02-2023 ABO group Nom (Bld) O [facility] Comment on above: Performed By: #### 5 902-2 #### JOLENE Cantu ([id number]) [facility] ([facility]) [address] [place] [address] Blood group antibody screen Ql Negative [facility] Comment on above: Performed By: #### 5 902-2 #### JOLENE Cantu ([id number]) [facility] ([facility]) [address] [place] [address] D Ag Ql (Bld) Positive [facility] Comment on above: Result Comment: 2nd ABO test required. Order and Collect VERAB Performed By: #### 5 902-2 #### JOLENE Cantu ([id number]) [facility] ([facility]) [address] [place] [address] CBC panel Auto (Bld)on 08-01 Erythrocyte distribution width (RBC) [Ratio] 12.7 % Normal 11.5-14.5 [facility] Comment on above: Performed By: #### 5 902-2 #### JOLENE Cantu ([id number]) [facility] ([facility]) [address] [place] [address]47 Hematocrit (Bld) [Volume fraction] 42.8 % Normal 36.0-46.0 [facility] Comment on above: Performed By: #### 5 902-2 #### JOLENE Cantu ([id number]) [facility] ([facility]) [address] [place] [address]1425 Hemoglobin (Bld) [Mass/Vol] 14.4 g/dL Normal 12.0-16.0 [facility] Comment on above: Performed By: #### 5 902-2 #### JOLENE Cantu ([id number]) [facility] ([facility]) [address] [place] [address] 45729 MCH (RBC) [Entitic mass] 30.9 pg Normal 26.0-34.0 [facility] Comment on above: Performed By: #### 5 902-2 #### JOLENE Cantu ([id number]) [facility] ([facility]) [address] [place] [address] 30289 MCHC (RBC) [Mass/Vol] 33.6 g/dL Normal 32.0-36.0 [facility] Comment on above: Performed By: #### 5 902-2 #### JOLENE Cantu ([id number]) [facility] ([facility]) [address] [place] [address] 01789 MCV (RBC) [Entitic vol] 92 fL Normal 80-100 [facility] Comment on above: Performed By: #### 5 902-2 #### JOLENE Cantu (39902) [facility] ([facility]) [address] [place] [address] 36746 Nucleated RBC/100 WBC (Bld) [Ratio] 0.0 /100 WBCs Normal 0.0-0.0 [facility] Comment on above: Performed By: #### 5 902-2 #### JOLENE Cantu (75562) [facility] ([facility]) [address] [place] [address] Platelets (Bld) [#/Vol] 308 x10*3/uL Normal 150-450 [facility] Comment on above: Performed By: #### 5 902-2 #### JOLENE Cantu (40393) [facility] ([facility]) [address] [place] [address] RBC (Bld) [#/Vol] 4.66 x10*6/uL Normal 4.00-5.20 [facility] Comment on above: Performed By: #### 5 902-2 #### JOLENE RONQUILLO L ([id number]) [facility] ([facility]) [address] [place] [address] WBC (Bld) [#/Vol] 5.9 x10*3/uL Normal 4.4-11.3 [facility] Comment on above: Performed By: #### 5 902-2 #### JOLENE Cantu ([id number]) [facility] ([facility]) [address] [place] [address] CT Spine Lumbar w/o Contrast on 08-02-2023 CT Spine Lumbar w/o Contrast Normal [facility] Consent for Treatmenton 07-23 Consent for Treatment [id number]#1.00T IFF Normal [facility] Discharge Instructionson Discharge Instructions [id number]#1.00 TIFF Normal [facility] ED Clinical Summaryon 2023 ED Clinical Summary Normal [facility] ED Note-Physicianon 08-02-19 24 ED Note-Physician Normal [facility] Comment on above: Result Comment: Elec tronically Signed By: Yaw MILES, Landon J.\.br\Date and Time Signed: 08/02/23 15:22 EDT\.br\Electronically Co-Signed By: Nikhil Tubbs DO\.br\Date and Time Co-Signed: 08/02/23 15:32 EDT ED Patient Education Noteon 08-02-2023 ED Patient Education Note Normal [facility] ED Patient Summaryon 024 ED Patient Summary Normal [facility] PT and aPTT panel Coag (PPP) on 08-02-2023 aPTT Coag (PPP) [Time] 33 s Normal 27-38 Un [facility] Comment on above: Order Comment: The A PTT is no longer used for monitoring Unfractionated Heparin Therapy. For monitoring Heparin Therapy, use the Heparin Assay. Performed By: #### 5 902-2 #### JOLENE Cantu ([id number]) [facility] ([facility]) [address] [place] [address] 97546 INR Coag (PPP) [Relative time] 1.0 Normal 0.9-1.1 [facility] Comment on above: Order Comment: The A PTT is no longer used for monitoring Unfractionated Heparin Therapy. For monitoring Heparin Therapy, use the Heparin Assay. Performed By: #### 5 902-2 #### JOLENE Cantu ([id number]) [facility] ([facility]) [address] [place] [address] 23937 PT Coag (PPP) [Time] 11.1 s Normal 9.8-12.8 [facility] Comment on above: Order Comment: The A PTT is no longer used for monitoring Unfractionated Heparin Therapy. For monitoring Heparin Therapy, use the Heparin Assay. Performed By: #### 5 902-2 #### JOLENE Cantu ([id number]) [facility] ([facility]) [address] [place] [address] 81062 Progress Note-Nurseon 2023 Progress Note-Nurse Pt leaves with ride Normal [facility] Staphylococcus aureus.methic illin resistant isolateon 08-02-2023 MRSA isol Org specific cx Ql (Nose) Test: Staphylococcus aureus/MRSA colonization, Culture Specimen Source: Nares/Axilla/Groin Specimen Type: Swab Specimen Date: 08/02/2023 0853 Result Date: 08/03/2023 1234 Result Status: Final result Abnormal: No Resulting Lab: [facility] [address] [place] [address] CULTURE No Staphylococcus aureus isolated Normal [facility] Comment on above: Performed By: #### 5 902-2 #### JOLENE Cantu ([id number]) [facility] ([facility]) [address] [place] [address]9440 Urinalysis complete W Reflex Culture panel (U)on 08-02-2023 Appearance (U) Clear Normal Clear [facility] Comment on above: Performed By: #### 5 902-2 #### JOLENE Cantu ([id number]) [facility] ([facility]) [address] [place] [address] 09611 Bilirubin (U) [Mass/Vol] Negative Normal NEGATIVE [facility] Comment on above: Performed By: #### 5 902-2 #### JOLENE Cantu ([id number]) [facility] ([facility]) [address] [place] [address] 09373 Color (U) Colorless Normal Light-Yellow , Yellow, Dark-Yellow [facility] Comment on above: Performed By: #### 5 902-2 #### JOLENE Cantu ([id number]) [facility] ([facility]) [address] [place] [address] 86867 Glucose Auto test strip (U) [Mass/Vol] Normal Normal Normal [facility] Comment on above: Performed By: #### 5 902-2 #### JOLENE Cantu ([id number]) [facility] ([facility]) [address] [place] [address] 74443 Ketones (U) [Mass/Vol] Negative Normal NEGATIVE [facility] Comment on above: Performed By: #### 5 902-2 #### JOLENE Cantu (28854) [facility] ([facility]) [address] [place] [address] 33960 Leukocyte esterase Auto test strip Ql (U) Negative Normal NEGATIVE [facility] Comment on above: Performed By: #### 5 902-2 #### JOLENE Cantu (85870) [facility] ([facility]) [address] [place] [address] 96082 Nitrite Auto test strip Ql (U) Negative Normal NEGATIVE [facility] Comment on above: Performed By: #### 5 902-2 #### JOLENE Cantu ([id number]) [facility] ([facility]) [address] [place] [address] 42442 pH (U) 7.5 [pH] Normal 5.0, 5.5, 6.0, 6.5, 7.0, 7.5, 8.0 [facility] Comment on above: Performed By: #### 5 902-2 #### JOLENE Cantu ([id number]) [facility] ([facility]) [address] [place] [address] 30129 Protein (U) [Mass/Vol] Negative Normal NEGAT ALEXANDRE, 10 (TRACE), 20 (TRACE) [facility] Comment on above: Performed By: #### 5 902-2 #### JOLENE Cantu ([id number]) [facility] ([facility]) [address] [place] [address] 93932 RBC (U) [#/Vol] Negative Normal NEGATIVE [facility] Comment on above: Performed By: #### 5 902-2 #### JOLENE Cantu ([id number]) [facility] ([facility]) [address] [place] [address] 97785 Specific gravity (U) [Rel density] 1.007 Normal 1.005-1.035 [facility] Comment on above: Performed By: #### 5 902-2 #### JOLENE Cantu ([id number]) [facility] ([facility]) [address] [place] [address] 48101 Urobilinogen (U) [Mass/Vol] Normal Normal Normal [facility] Comment on above: Performed By: #### 5 902-2 #### JOLENE Cantu ([id number]) [facility] ([facility]) [address] [place] [address] Consent for Treatmenton Consent for Treatment [id number]#1.00T IFF Normal [facility] Discharge Instructionson Discharge Instructions [id number]#1.00T IFF Normal [facility] ED Clinical Summaryon 2023 ED Clinical Summary Normal [facility] ED Note-Physicianon 07-31-19 ED Note-Physician [facility] Comment on above: Result Comment: Elec tronically Signed By: Landon Tidwell PA-C\.br\Date and Time Signed: 07/31/23 15:32 EDT\.br\Electronically Co-Signed By: Balbina Bryant M.D.\.br\Date and Time Co-Signed: 07/31/23 15:51 EDT ED Patient Education Noteon 07-31-2023 ED Patient Education Note Normal [facility] ED Patient Summaryon 024 ED Patient Summary Normal [facility] Consent To Leave AMAon 07-25 Consent To Leave AMA [id number]#1.00T IFF Normal [facility] Consent for Treatmenton Consent for Treatment [id number]#1.00T IFF Normal [facility] Discharge Instructionson Discharge Instructions [id number]#1.00T IFF Normal [facility] ED Clinical Summaryon 2023 ED Clinical Summary Normal [facility] ED Note-Physicianon 07-26-19 ED Note-Physician [facility] Comment on above: Result Comment: Elec tronically Signed By: Jorge Mcintosh DO\.br\Date and Time Signed: 07/26/23 11:28 EDT ED Patient Education Noteon 07-26-2023 ED Patient Education Note Normal [facility] ED Patient Summaryon 024 ED Patient Summary Normal [facility] Consultation Noteon 07-24-19 Consultation Note [id number]#1.00T IFF Normal [facility] Consultation Note [id number]#1.00T IFF Normal [facility] Family Medicine Office/Clini c Noteon 07-23-2023 Family Medicine Office/Clinic Note Normal [facility] Comment on above: Result Comment: Elec tronically Signed By: Cheyanne Rincon\.br\Date and Time Signed: 07/23/23 14:37 EDT Physician Referralon 024 Physician Referral [id number]#1.00T IFF Normal [facility] CT Abdomen/Pelvis w/o Contra ston 07-21-2023 CT Abdomen/Pelvis w/o Contrast Normal [facility] ED Note-Physicianon 07-21-19 ED Note-Physician Normal [facility] Comment on above: Result Comment: Elec tronically Signed By: Balbina Bryant M.D.\.br\Date and Time Signed: 07/21/23 04:24 EDT XR Chest Single Viewon 07-20 XR Chest Single View Normal [facility] BMPon 07-20-2023 Anion gap [Moles/Vol] 10 mmol/L Normal 6-16 [facility] Comment on above: Performed By: #### 2 [id number], [id number], [id number], [id number], [id number], [id number], [id number] ####[facility] [address] [place] [address] Calcium [Mass/Vol] 8.2 mg/dL Low 8.9-11.1 [facility] [facility] Comment on above: Performed By: #### 2 528231, 9413732, 7478307, 23051182, 36918548, 96717703, 72659815 ####[facility] [address] [place] [address] Chloride [Moles/Vol] 105 mmol/L Normal 101-111 [facility] Comment on above: Performed By: #### 2 699235, 4199716, 8003480, 94740960, 23781216, 52707709, 02389418 ####[facility] [address] [place] [address] CO2 [Moles/Vol] 26 mmol/L Normal 21-31 [facility] Comment on above: Performed By: #### 2 313704, 4517069, 0082003, 76404254, 96872146, 93212518, 71517226 ####[facility] [address] [place] [address] Creatinine [Mass/Vol] 0.7 mg/dL Normal 0.5-1.3 [facility] Comment on above: Performed By: #### 2 903486, 5707542, 6864105, 34034985, 99893824, 53937150, 88590847 ####[facility] [address] [place] [address] Glucose [Mass/Vol] 122 mg/dL Normal 55-199 [facility] Comment on above: Performed By: #### 2 497206, 1632887, 3336761, 17239186, 06480744, 26726004, 99932567 ####[facility] [address] [place] [address] Potassium [Moles/Vol] 4.0 mmol/L Normal 3.5-5.3 [facility] Comment on above: Performed By: #### 2 660909, 9224564, 9293324, 69631731, 43990126, 58251453, 50353689 ####[facility] [address] [place] [address] Sodium [Moles/Vol] 137 mmol/L Normal 135-145 [facility] Comment on above: Performed By: #### 2 286090, 3881399, 7423135, 15453693, 05059476, 13696956, 05991464 ####[facility] [address] [place] [address] Urea nitrogen [Mass/Vol] 17 mg/dL Normal 5-21 [facility] Comment on above: Performed By: #### 2 202955, 7098402, 9652134, 36672968, 30238734, 01493073, 51568606 ####[facility] [address] [place] [address] Urea nitrogen/Creatinine [Mass ratio] 24 No Units High 10-20 [facility] Comment on above: Performed By: #### 2 019115, 1956035, 4027665, 29729607, 38379102, 08968845, 67027890 ####[facility] [address] [place] [address] BNPon 07-20-2023 Natriuretic peptide B (Bld) [Mass/Vol] 25 pg/mL Normal 5-80 [facility] Comment on above: Performed By: #### 2 814086, 3650913, 9694666, 02955597, 41727495, 83225518, 28824098 ####[facility] [address] [place] [address] CBC w/ Auto Diffon 4 Basophils/100 WBC (Bld) 0.4 % Normal 0.0-2.0 [facility] Comment on above: Performed By: #### 2 327846, 1586063, 3226742, 69081412, 83664598, 94088279, 49023065 ####[facility] [address] [place] [address] Basophils/Leukocytes Auto (Bld) [Pure # fraction] 0.0 E9/L Normal 0.0-0.2 [facility] Comment on above: Performed By: #### 2 416650, 9418870, 0301858, 72362697, 61761504, 79344617, 85112709 ####[address] [place] [address] Eosinophils (Bld) [#/Vol] 0.2 E9/L Normal 0.0-0.5 [facility] Comment on above: Performed By: #### 2 224674, 1059221, 0483454, 06027600, 20028017, 98117960, 42945361 ####[address] [address] Eosinophils/100 WBC (Bld) 1.3 % Normal 0.0-8.0 [facility] Comment on above: Performed By: #### 2 500686, 4016556, 4440427, 93598180, 24766121, 05421935, 31464532 ####[address] [address] Erythrocyte distribution width (RBC) [Ratio] 13.3 % Normal 10.9-14.2 [facility] Comment on above: Performed By: #### 2 394653, 4977985, 4673840, 19381473, 84147348, 86344042, 37471350 ####[address] [address] Hematocrit (Bld) [Volume fraction] 38.3 % Normal 34.0-46.0 [facility] Comment on above: Performed By: #### 2 740567, 8363691, 8757310, 56339430, 48676757, 13437527, 30524434 ####[address] [address] Hemoglobin (Bld) [Mass/Vol] 12.9 g/dL Normal 12.0-16.0 [facility] Comment on above: Performed By: #### 2 597881, 8670913, 6421519, 21510100, 59352067, 01948906, 01766453 ####[address] [place] [address] Lymphocytes (Bld) [#/Vol] 2.2 E9/L Normal 1.0-4.0 [facility] Comment on above: Performed By: #### 2 964388, 9578066, 9411311, 38630676, 29457471, 90388709, 68086495 ####[address] [address] Lymphocytes/100 WBC (Bld) 18.2 % Normal 14.0-50.0 [facility] Comment on above: Performed By: #### 2 670535, 5908994, 1277163, 28556493, 06616056, 05568370, 85390282 ####[address] [address] MCH (RBC) [Entitic mass] 31.7 pg Normal 27.0-34.0 [facility] Comment on above: Performed By: #### 2 500300, 6888209, 3029134, 54868986, 10584929, 65848656, 92489152 ####[facility] [address] [place] [address] MCHC (RBC) [Mass/Vol] 33.8 g/dL Normal 31.4-36.0 [facility] Comment on above: Performed By: #### 2 412465, 7077596, 8691695, 80441498, 91130342, 26886493, 41527367 ####[address] [address] MCV (RBC) [Entitic vol] 93.8 fL Normal 80.0-100.0 [facility] Comment on above: Performed By: #### 2 553673, 3582561, 6189470, 98727422, 73788214, 64538048, 99649666 ####[address] [address] Monocytes (Bld) [#/Vol] 0.6 E9/L Normal 0.2-1.0 [facility] Comment on above: Performed By: #### 2 385116, 7863203, 6341451, 91880674, 53061010, 73312232, 27920828 ####[facility] [address] [place] [address] Neutrophils (Bld) [#/Vol] 9.0 E9/L High 2.0-7.5 [facility] Comment on above: Performed By: #### 2 421145, 7339836, 6719234, 32359620, 78623709, 13414861, 28284416 ####[facility] [address] [place] [address] Neutrophils/100 WBC (Bld) 75.2 % High 36.0-75.0 [facility] Comment on above: Performed By: #### 2 237579, 3276568, 1924037, 41073168, 34714112, 32003636, 52982393 ####[address] [address] Platelet mean volume (Bld) [Entitic vol] 8.9 fL Normal 6.4-10.8 [facility] Comment on above: Performed By: #### 2 447641, 7342641, 8787533, 54537446, 49724744, 20267714, 58877753 ####[address] [address] Platelets (Bld) [#/Vol] 245.0 E9/L Normal 150.0-500.0 [facility] Comment on above: Performed By: #### 2 374552, 8866886, 7654689, 96400414, 27069889, 76674813, 97823810 ####[address] [place] [address] RBC (Bld) [#/Vol] 4.1 E12/L Low 4.3-5.9 [facility] Comment on above: Performed By: #### 2 379349, 1426300, 8455155, 34633819, 82406398, 80582531, 58759180 ####[facility] [address] [place] [address] WBC corrected for nucl RBC Auto (Bld) [#/Vol] 11.9 E9/L High 4.0-11.0 [facility] Comment on above: Performed By: #### 2 769086, 6620412, 2942620, 46306454, 10859270, 60916240, 28405456 ####[facility] [address] [place] [address] Consent for Treatmenton 06-24 Consent for Treatment [id number] 58604 [id number]#1.00T IFF Normal [facility] Discharge Instructionson Discharge Instructions [id number] 786325 [id number]#1.00T IFF Normal [facility] ED Clinical Summaryon 2023 ED Clinical Summary Normal [facility] ED Patient Education Noteon 07-20-2023 ED Patient Education Note Normal [facility] ED Patient Summaryon 024 ED Patient Summary Normal [facility] Hep Func Panelon 07-20-2023 Albumin [Mass/Vol] 3.8 g/dL Normal 3.3-5.0 [facility] Comment on above: Performed By: #### 2 503777, 0343625, 6370452, 62701623, 90020560, 41455754, 84566207 ####[facility] [address] [place] [address] Albumin/Globulin (S) [Mass conc ratio] 1.4 Normal 1.1-2.2 [facility] Comment on above: Performed By: #### 2 954323, 2318768, 6307805, 05182748, 53850843, 22214958, 87353154 ####[facility] [address] [place] [address] ALP [Catalytic activity/Vol] 68 Int._Unit/L Normal 21-98 [facility] Comment on above: Performed By: #### 2 415026, 2426498, 4571726, 61444361, 38728513, 82666975, 19741343 ####[facility] [address] [place], [place] [address] ALT No additional P-5'-P [Catalytic activity/Vol] 22 Int._Unit/L Normal 6-46 [facility] Comment on above: Performed By: #### 2 558739, 6088892, 6131649, 75243429, 30037160, 20818811, 21832813 ####[address] [place] [address] AST [Catalytic activity/Vol] 26 Int._Unit/L Normal 5-43 [facility] Comment on above: Performed By: #### 2 355184, 1174747, 7596378, 42914347, 96093414, 57062285, 33235868 ####[address] Bilirubin [Mass/Vol] 0.3 mg/dL Normal 0.0-1.1 [facility] Comment on above: Performed By: #### 2 887850, 0203567, 9547120, 02152942, 30802987, 93271442, 04489880 ####[address] [address] Bilirubin.direct [Mass/Vol] 0.1 mg/dL Normal 0.0-0.4 [facility] Comment on above: Performed By: #### 2 108689, 3160923, 9994575, 34818197, 94858608, 92576254, 59982950 ####[address] [place] [address] Bilirubin.indirect [Mass or moles/Vol] 0.2 mg/dL Normal 0.1-0.9 [facility] Comment on above: Performed By: #### 2 561186, 5451445, 7609320, 73898501, 97723560, 19457298, 38846994 ####[facility] [address] [place] [address] Globulin (S) [Mass/Vol] 2.8 g/dL Normal 1.4-4.0 [facility] Comment on above: Performed By: #### 2 157463, 5904693, 9039103, 62371890, 63780017, 89919805, 03454025 ####[facility] [address] [place] [address] Protein [Mass/Vol] 6.6 g/dL Normal 6.0-7.8 [facility] Comment on above: Performed By: #### 2 434028, 6559207, 6334372, 52984067, 55802637, 29051621, 53785555 ####[facility] [address] [place] [address] PT & PTTon 07-20-2023 aPTT Coag (PPP) [Time] 33.9 second(s) Normal 25.1-36.5 [facility] Comment on above: Result Comment: Para meter [...] the same coagulation reagent and instrumentation as [facility]. Currently there are no coagulation studies available worldwide for children to 14 days, and no normal ranges. Heparin therapeutic range (represented by Anti-Factor Xa activity of 0.2 - 0.4 U/mL) corresponds to PTT of 56.6 - 109.0 sec. Performed By: #### 2 068985, 3215507, 0096121, 66536333, 08444886, 68662483, 27264234 ####[facility] [address] [place] [address] INR Coag (PPP) [Relative time] 0.98 {INR} Invalid Interpretation Code [facility] Comment on above: Result Comment: INR results are specifically intended to assess patients stabilized on long-term Anticoagulation therapy suggested INR?s ?Less Intensive Anticoagulation? 2.0 ? 3.0Conventional Range 3.0 ? 4.5 Performed By: #### 2 512161, 4971757, 4623448, 35785762, 29191929, 56108543, 69900148 ####[facility] [address] [place] [address] PT Coag (PPP) [Time] 11.0 second(s) Normal 9.4-12.5 [facility] Comment on above: Result Comment: 15 d ays - 4 weeks 1 - 5 months 6 -11 months 1- 5 years 6-10 years 11 -17 years Mean: 11.2 (9.5-12.6) Mean: 11.0 (9.7-12.8) Mean: 11.0 (9.8-13.0) Mean: 11.3 (9.9-13.4) Mean: 11.7 (10.0-14.6) Mean: 11.8 (10.0 - 14.1) Pediatric Reference ranges were obtained from a study by Chidi Valera et al. prepared from 1437 samples obtained at 7 different centers using the same coagulation reagent and instrumentation as [facility]. Currently there are no coagulation studies available worldwide for children to 14 days, and no normal ranges. Performed By: #### 2 333531, 3672840, 2877696, 33544809, 52446841, 20231546, 39804036 ####[facility] [address] [place] [address] RAD - Preliminary Cat Scan R eporton 07-20-2023 RAD - Preliminary Cat Scan Report [id number]#1.00T IFF Normal [facility] Troponin 0 Hr.on 07-20-2023 Troponin 11.90 pg/mL Normal 10.10-27.10 [facility] Comment on above: Result Comment: The 95% CI (Confidence Interval) PPV (Positive Predictive Value) for myocardial infarction in females is 38 pg/mL, in males 51 pg/mL. The results should be used in conjunction with clinical conditions of myocardial infarction.(Access High Sensitivity Troponin I Instructions For Use, [employer], October 2017) Performed By: #### 2 212919, 9253139, 9641529, 62436340, 12774495, 79975743, 41539949 ####[facility] [address] [place] [address] Troponin 1 Hr.on 07-20-2023 Troponin 2.50 pg/mL Low 10.-. [facility] Comment on above: Order Comment: to be drawn at 1939. [id number] 07/20/2023 18:47:40 EDT Result Comment: The 95% CI (Confidence Interval) PPV (Positive Predictive Value) for myocardial infarction in females is 38 pg/mL, in males 51 pg/mL. The results should be used in conjunction with clinical conditions of myocardial infarction.(Access High Sensitivity Troponin I Instructions For Use, [employer], October 2017) Performed By: #### 1 8385319 ####[facility] [address] [place] [address] eGFRon 07-20-2023 eGFR 108 mL/min/1.73 m2 Normal >=59 [facility] Comment on above: Order Comment: Order added by Discern Expert. Performed By: #### 2 526250, 8389253, 6661472, 86936781, 72548096, 65872588, 19354059 ####[facility] [address] [place] [address] Outside Records Officeon Outside Records Office [id number]#1.00 TIFF Normal [facility] Ambulatory Visit Summaryon 0 07-17-2023 Ambulatory Visit Summary Invalid Interpretation Code Weight gain [facility] Auth for Release of Medical Recordson 07-17-2023 Auth for Release of Medical Records [id number]#1.00T IFF Normal [facility] Formson 07-17-2023 Forms [id number]#1.00T IFF Normal [facility] Patient Educationon 07-17-19 Patient Education Normal [facility] Outside Records Officeon Outside Records Office [id number] [id number]#1.00 TIFF Normal [facility] Outside Records Office [id number] [id number]#1.00 TIFF Normal [facility] Consent for Treatmenton 06-24 Consent for Treatment [id number]#1.00 TIFF Normal [facility] Consultation Noteon 07-15-19 Consultation Note Normal [facility] Comment on above: Result Comment: Elec tronically Signed By: Joao MILES, Dory\.br\Date and Time Signed: 07/15/23 14:14 EDT HIPAA Forms Officeon 024 HIPAA Forms Office [id number]#1.00 TIFF Normal [facility] Legal Correspondence Officeo n 07-15-2023 Legal Correspondence Office [id number]#1.00 TIFF Normal [facility] Legal Correspondence Office [id number]#1.00 TIFF Normal [facility] Office/Clinic Note-Physician on 07-15-2023 Office/Clinic Note-Physician [id number]#1.00 TIFF Normal [facility] Patient Correspondenceon Patient Correspondence [id number]#1.00 TIFF Normal [facility] Patient Correspondence [id number]#1.00 TIFF Normal [facility] Patient Correspondence [id number]#1.00 TIFF Normal [facility] Patient Correspondence [id number] [id number]#1.00 TIFF Normal [facility] Patient Correspondence [id number] [id number]#1.00 TIFF Normal [facility] Patient History Officeon Patient History Office [id number]#1.00 TIFF Normal [facility] Release of Records Officeon 07-15-2023 Release of Records Office [id number]#1.00 TIFF Normal [facility] Release of Records Office [id number]#1.00 TIFF Normal [facility] Consent for Treatmenton 06-24 Consent for Treatment [id number]#1.00T IFF [facility] Discharge Instructionson Discharge Instructions [id number]#1.00 TIFF Normal [facility] ED Clinical Summaryon 2023 ED Clinical Summary Normal [facility] ED Note-Physicianon 07-14-19 ED Note-Physician [facility] Comment on above: Result Comment: Elec tronically Signed By: Angelic Reece PA-C\.br\Date and Time Signed: 07/14/23 12:06 EDT\.br\Electronically Co-Signed By: Nikhil Tubbs DO\.br\Date and Time Co-Signed: 07/14/23 13:59 EDT ED Patient Education Noteon 07-14-2023 ED Patient Education Note Normal [facility] ED Patient Summaryon 024 ED Patient Summary Normal [facility] Consent for Treatmenton 06-23 Consent for Treatment [id number]#1.00T IFF Normal [facility] Discharge Instructionson Discharge Instructions [id number]#1.00TI FF Normal [facility] ED Clinical Summaryon 2023 ED Clinical Summary Normal [facility] ED Note-Physicianon 07-11-19 ED Note-Physician Normal [facility] Comment on above: Result Comment: Elec tronically Signed By: Balbina Bryant M.D.\.br\Date and Time Signed: 07/11/23 10:11 EDT ED Patient Education Noteon 07-11-2023 ED Patient Education Note Normal [facility] ED Patient Summaryon ED Patient Summary Normal [facility] Clipboard Summaryon 07-08-19 Clipboard Summary {is-03-go-01-9d-ab-4 a-8 1-76-92-2b-26-9k-d1-42- 37}XML Normal [facility] Discharge Instructionson Discharge Instructions [id number]#1.00 TIFF [facility] Consent for Treatmenton 06-23 Consent for Treatment [id number]#1.00T IFF Normal [facility] ED Clinical Summaryon 2023 ED Clinical Summary Normal [facility] ED Note-Physicianon 07-06-19 ED Note-Physician Normal [facility] Comment on above: Result Comment: Elec tronically Signed By: Pedro Pablo Fletcher DO\.br\Date and Time Signed: 07/06/23 19:43 EDT ED Patient Education Noteon 07-06-2023 ED Patient Education Note Normal [facility] ED Patient Summaryon 024 ED Patient Summary Normal [facility] Consent for Treatmenton Consent for Treatment [id number]#1.00T IFF Normal [facility] Discharge Instructionson Discharge Instructions [id number]#1.00 TIFF Normal [facility] ED Clinical Summaryon 2023 ED Clinical Summary Normal Osbaldo martinez [facility] ED Note-Physicianon 06-29-19 ED Note-Physician Normal [facility] Comment on above: Result Comment: Elec tronically Signed By: Landon Tidwell PA-C\.br\Date and Time Signed: 06/29/23 15:22 EDT\.br\Electronically Co-Signed By: Nikhil Tubbs DO\.br\Date and Time Co-Signed: 06/29/23 15:52 EDT ED Patient Education Noteon 06-29-2023 ED Patient Education Note Normal [facility] ED Patient Summaryon ED Patient Summary Normal [facility] .HCV RT-PCR, Quant (Non-Grap h)on 06-27-2023 Diagnostic impression [employer] Sky (Unsp spec) [Interp] Comment Invalid Interpretation Code [facility] Comment on above: Result Comment: Posi tive HCV antibody screen without the presence of HCV RNAis consistent with a resolved past infection or a falsepositive HCV antibody. Consider repeat testing after onemonth.Performed at: [address] [id number] MD Bhargav Lamar Performed By: #### 2 857388, [id number], [id number] ####[facility] [address] [place] [address] HCV RNA LINDSEY+probe Qn Not detected Invalid Interpretation Code [facility] Comment on above: Performed By: #### 2 874274, [id number], [id number] ####[facility] [address] [place] [address] Reference Lab Test Reference Range Comment Invalid Interpretation Code [facility] Comment on above: Result Comment: The quantitative range of this assay is 15 IU/mL to 100 million IU/mL. Performed By: #### 2 197048, [id number], [id number] ####[facility] [address] [place] [address] Consent for Treatmenton Consent for Treatment [id number]#1.00T IFF Normal [facility] Discharge Instructionson Discharge Instructions [id number]#1.00 TIFF Normal [facility] ED Clinical Summaryon 2023 ED Clinical Summary Normal [facility] ED Note-Physicianon 06-27-19 ED Note-Physician Normal [facility] Comment on above: Result Comment: Elec tronically Signed By: Kristie Boss PA-C\.br\Date and Time Signed: 06/27/23 12:40 EDT\.br\Electronically Co-Signed By: Nikhil Tubbs DO\.br\Date and Time Co-Signed: 06/27/23 14:49 EDT ED Patient Education Noteon 06-27-2023 ED Patient Education Note Normal [facility] ED Patient Summaryon 024 ED Patient Summary Normal [facility] HCV Antibody RFX to Quant PC Fernando 06-27-2023 HCV IgG IA Ql Reactive Abnormal Non Reactive [facility] Comment on above: Result Comment: Perf ormed at: [email or web address] [place], [place] [id number] PhD [employer] Performed By: #### 2 567910, [id number], [id number] ####[facility] [address] [place] [address] Hep Bs Agon 06-27-2023 HBV surface Ag IA Ql Negative Invalid Interpretation Code Negative [facility] Comment on above: Result Comment: Perf ormed at: [employer] [place], [place] [id number] PhD [employer] Performed By: #### 2 425576, [id number], [id number] ####[facility] [address] [place] [address] Consent for Treatmenton Consent for Treatment [id number]#1.00T IFF Normal [facility] Discharge Instructionson Discharge Instructions [id number]#1.00 TIFF Normal [facility] ED Clinical Summaryon 2023 ED Clinical Summary Normal Tommye r [facility] ED Note-Physicianon 06-24-19 ED Note-Physician Normal [facility] Comment on above: Result Comment: Elec tronically Signed By: Balbina Bryant M.D.\.br\Date and Time Signed: 06/24/23 12:17 EDT ED Patient Education Noteon 06-24-2023 ED Patient Education Note Normal [facility] ED Patient Summaryon 024 ED Patient Summary Normal [facility] MRI Spine Lumbar w/o Contras ton 06-24-2023 MRI Spine Lumbar w/o Contrast Normal [facility] RAD - MRI Screening Formon 0 06-24-2023 RAD - MRI Screening Form [id number]#1.00T IFF Normal [facility] CT Abdomen/Pelvis w/ Contras ton 06-23-2023 CT Abdomen/Pelvis w/ Contrast Normal [facility] CBC w/ Auto Diffon 4 Basophils/100 WBC (Bld) 0.1 % Normal 0.0-2.0 [facility] Comment on above: Performed By: #### 1 2301154, 78650650, 7071520, 3748641, 5008381, 4034952, 86929723, 9297045 ####[facility] [address] [place] [address] Basophils/Leukocytes Auto (Bld) [Pure # fraction] 0.0 E9/L Normal 0.0-0.2 [facility] Comment on above: Performed By: #### 1 7013281, 18424884, 8281481, 0362546, 8311897, 9353966, 15543060, 2968175 ####[address] [place] [address] Eosinophils (Bld) [#/Vol] 0.1 E9/L Normal 0.0-0.5 [facility] [facility] Comment on above: Performed By: #### 1 9974829, 18185394, 2571774, 2277400, 8892201, 0900745, 43752247, 8552072 ####[address] [place] [address] Eosinophils/100 WBC (Bld) 0.9 % Normal 0.0-8.0 [facility] Comment on above: Performed By: #### 1 0261596, 39651164, 8438301, 1760088, 5528417, 7463228, 92578001, 8882894 ####[address] Erythrocyte distribution width (RBC) [Ratio] 13.3 % Normal 10.9-14.2 [facility] Comment on above: Performed By: #### 1 9705498, 43790012, 6606273, 5246223, 8971051, 3673546, 02825255, 4554331 ####[address] [address] Hematocrit (Bld) [Volume fraction] 45.0 % Normal 34.0-46.0 [facility] Comment on above: Performed By: #### 1 8790255, 35241445, 6437025, 3582671, 9225636, 7486714, 84329160, 1099842 ####[address] [address] Hemoglobin (Bld) [Mass/Vol] 15.1 g/dL Normal 12.0-16.0 [facility] Comment on above: Performed By: #### 1 7828010, 04411988, 9200111, 7252279, 4249512, 1889669, 46697680, 1364086 ####[facility] [address] [place] [address] Lymphocytes (Bld) [#/Vol] 0.4 E9/L Low 1.0-4.0 [facility] Comment on above: Performed By: #### 1 8466184, 24637969, 3247017, 7728796, 0444650, 4403868, 05823961, 7573911 ####[address] [address] Lymphocytes/100 WBC (Bld) 3.7 % Low 14.0-50.0 [facility] Comment on above: Performed By: #### 1 9192443, 57186405, 4398621, 5471876, 9920285, 0329345, 56086396, 3970301 ####[address] [address] MCH (RBC) [Entitic mass] 31.5 pg Normal 27.0-34.0 [facility] Comment on above: Performed By: #### 1 8113124, 31223368, 6719799, 5399556, 5092899, 2917186, 11662877, 4650210 ####[address] [address] MCHC (RBC) [Mass/Vol] 33.5 g/dL Normal 31.4-36.0 [facility] Comment on above: Performed By: #### 1 3869720, 72982676, 8319850, 5589834, 1945859, 1538921, 34513767, 5384537 ####[address] [place] [address] MCV (RBC) [Entitic vol] 94.2 fL Normal 80.0-100.0 [facility] Comment on above: Performed By: #### 1 7698170, 15351863, 3904014, 7997741, 5425158, 3228315, 33532869, 1521464 ####[address] [address] Monocytes (Bld) [#/Vol] 0.3 E9/L Normal 0.2-1.0 [facility] Comment on above: Performed By: #### 1 7803822, 13167559, 6668478, 4967851, 0598073, 8472463, 83966008, 3867970 ####[facility] [address] [place] [address] Neutrophils (Bld) [#/Vol] 9.5 E9/L High 2.0-7.5 [facility] Comment on above: Performed By: #### 1 8084501, 40269185, 1323887, 4040780, 1148078, 3139712, 08967474, 8302176 ####[address] [place] [address] Neutrophils/100 WBC (Bld) 92.1 % High 36.0-75.0 [facility] Comment on above: Performed By: #### 1 5029150, 75998266, 5007495, 3047726, 8123861, 2372481, 92488853, 5911441 ####[facility] [address] [place] [address] Platelet 308.0 E9/L Normal 150.0-500.0 [facility] Comment on above: Performed By: #### 1 0169686, 10486232, 7233827, 2082278, 0531627, 2160297, 90547685, 0974294 ####[facility] [address] [place] [address] Platelet mean volume (Bld) [Entitic vol] 8.7 fL Normal 6.4-10.8 [facility] Comment on above: Performed By: #### 1 1711165, 88403974, 8618473, 4378144, 4674312, 5429388, 12891448, 2931338 ####[facility] [address] [place] [address] RBC (Bld) [#/Vol] 4.8 E12/L Normal 4.3-5.9 [facility] Comment on above: Performed By: #### 1 4363205, 26842751, 3195751, 6369895, 5875785, 6341546, 68825296, 3591910 ####[facility] [address] [place] [address] WBC corrected for nucl RBC Auto (Bld) [#/Vol] 10.3 E9/L Normal 4.0-11.0 [facility] Comment on above: Performed By: #### 1 7385434, 43143182, 7523662, 2024629, 3479264, 3357115, 65752420, 2948785 ####[facility] [address] [place] [address] CHEMISTRYOrdered By: Chiquita saldana on 06-22-2023 Lactic Acid Lvl 1.4 mmol/L Normal 0.5 - 2.2 mmol/L [facility] Chem CHEMISTRYOrdered By: SYSTEM SYSTEM on 06-22-2023 Albumin [Mass/Vol] 4.2 g/dL Normal 3.3 - 5.0 gm/dL [facility] Chem Albumin/Globulin [Mass ratio] 1.2 {ratio} Normal 1.1 - 2.2 [facility] ALP [Catalytic activity/Vol] 74 [iU]/d Normal 21 - 98 Int._Unit/L [facility] Chem ALT No additional P-5'-P [Catalytic activity/Vol] 17 [iU]/d Normal 6 - 46 Int._Unit/L [facility] Chem Anion gap [Moles/Vol] 13 mmol/L Normal 6 - 16 mEq/L R emisol Chem AST [Catalytic activity/Vol] 18 [iU]/d Normal 5 - 43 Int._Unit/L [facility] Chem Bilirubin [Mass/Vol] 0.6 mg/dL Normal 0.0 - 1 .1 mg/dL [facility] Calcium [Mass/Vol] 8.3 mg/dL Low 8.9 - 11. 1 mg/dL [facility] Chloride [Moles/Vol] 106 mmol/L Normal 101 - 1 11 mmol/L [facility] CO2 [Moles/Vol] 24 mmol/L Normal 21 - 31 mmol/L [facility] Creatinine [Mass/Vol] 0.7 mg/dL Normal 0.5 - 1.3 mg/dL [facility] eGFR 108 mL/min/1.73 m2 Normal >=59mL/mi n/1 .73 m2 [facility] Globulin (S) [Mass/Vol] 3.6 g/dL Normal 1.4 - 4.0 gm/dL [facility] Glucose [Mass/Vol] 124 mg/dL Normal 55 - 199 mg/dL [facility] Lipase [Catalytic activity/Vol] unit/L Low 13 - 58 unit/L [facility] Magnesium [Mass/Vol] 1.8 mg/dL Normal 1.3 - 2 .4 mg/dL [facility] Potassium [Moles/Vol] 3.9 mmol/L Normal 3.5 - 5.3 mmol/L [facility] Chem Protein [Mass/Vol] 7.8 g/dL Normal 6.0 - 7.8 gm/dL [facility] Sodium [Moles/Vol] 139 mmol/L Normal 135 - 145 mmol/L [facility] Troponin 3.10 pg/mL Low 10.10 - 27.10 pg/mL [facility] Comment on above: Interpretive Data: T he 95% CI (Confidence Interval) PPV (Positive Predictive Value) for myocardial infarction in females is 38 pg/mL, in males 51 pg/mL. The results should be used in conjunction with clinical conditions of myocardial infarction. (Access High Sensitivity Troponin I Instructions For Use, Katlyn Edson, October 2017) Urea nitrogen [Mass/Vol] 13 mg/dL Normal 5 - 21 mg/dL [facility] Urea nitrogen/Creatinine [Mass ratio] 19 mg/mg Normal 10 - 20 [facility] Chem CMPon 06-22-2023 Albumin [Mass/Vol] 4.2 g/dL Normal 3.3-5.0 [facility] Comment on above: Performed By: #### 1 2682713, 59089645, 0306702, 6368806, 9101972, 3222079, 69031635, 1548145 ####[facility] [address] [place] [address] Albumin/Globulin (S) [Mass conc ratio] 1.2 Normal 1.1-2.2 [facility] Comment on above: Performed By: #### 1 4552665, 28542134, 3571346, 4060736, 9097613, 2866552, 01900211, 8602976 ####[address] [place] [address] ALP [Catalytic activity/Vol] 74 Int._Unit/L Normal 21-98 [facility] Comment on above: Performed By: #### 1 4928226, 85137821, 4018294, 8606177, 1093514, 2990529, 68218503, 2965445 ####[address] [address] ALT No additional P-5'-P [Catalytic activity/Vol] 17 Int._Unit/L Normal 6-46 [facility] Comment on above: Performed By: #### 1 1078848, 15004481, 1791318, 9185860, 6071085, 0501556, 59408288, 0233000 ####[address] [address] Anion gap [Moles/Vol] 13 mmol/L Normal 6-16 [facility] Comment on above: Performed By: #### 1 3352802, 21610101, 7768979, 5556573, 4461526, 3974265, 96674590, 7430274 ####[address] [address] AST [Catalytic activity/Vol] 18 Int._Unit/L Normal 5-43 [facility] Comment on above: Performed By: #### 1 5389220, 56863052, 7552474, 1658966, 0174111, 5759709, 86029258, 9722690 ####[address] [address] Bilirubin [Mass/Vol] 0.6 mg/dL Normal 0.0-1.1 [facility] Comment on above: Performed By: #### 1 5305501, 25271710, 0188265, 9369423, 2177627, 1074852, 61775255, 7048086 ####[facility] [address] [place] [address] Calcium [Mass/Vol] 8.3 mg/dL Low 8.9-11.1 [facility] Comment on above: Performed By: #### 1 0652033, 13536842, 4496672, 3304152, 1577894, 5557962, 86817691, 4808732 ####[facility] [address] [place] [address] Chloride [Moles/Vol] 106 mmol/L Normal 101-111 [facility] Comment on above: Performed By: #### 1 3177114, 91524664, 1121403, 0720697, 1488675, 2367188, 35516526, 1999039 ####[facility] [address] [place] [address] CO2 [Moles/Vol] 24 mmol/L Normal 21-31 [facility] Comment on above: Performed By: #### 1 4546837, 31137353, 1903640, 5743450, 7210451, 1936791, 00504050, 6025048 ####[facility] [address] [place] [address] Creatinine [Mass/Vol] 0.7 mg/dL Normal 0.5-1.3 [facility] Comment on above: Performed By: #### 1 7332984, 99292914, 4748112, 9620023, 3463791, 2187742, 63543547, 1895605 ####[facility] [address] [place] [address] Globulin (S) [Mass/Vol] 3.6 g/dL Normal 1.4-4.0 [facility] Comment on above: Performed By: #### 1 4859969, 21378289, 1629589, 2870862, 7643006, 0022592, 61937180, 4507795 ####[facility] [address] [place] [address] Glucose [Mass/Vol] 124 mg/dL Normal 55-199 [facility] Comment on above: Performed By: #### 1 9921284, 69439403, 0928449, 1811676, 7592618, 1527925, 61544683, 6362856 ####[facility] [address] [place] [address] Potassium [Moles/Vol] 3.9 mmol/L Normal 3.5-5.3 [facility] Comment on above: Performed By: #### 1 2703386, 52324318, 6850426, 9126805, 4629701, 7919056, 38650644, 7918478 ####[facility] [address] [place] [address] Protein [Mass/Vol] 7.8 g/dL Normal 6.0-7.8 [facility] Comment on above: Performed By: #### 1 9115290, 86362970, 9606174, 7185878, 9127820, 0155998, 07957859, 9144209 ####[facility] [address] [place] [address] Sodium [Moles/Vol] 139 mmol/L Normal 135-145 [facility] Comment on above: Performed By: #### 1 3704255, 08856079, 6970805, 4653765, 9164270, 8565538, 33596911, 2840449 ####[facility] [address] [place] [address] Urea nitrogen [Mass/Vol] 13 mg/dL Normal 5-21 [facility] Comment on above: Performed By: #### 1 6913891, 64263886, 3725743, 5596047, 8471914, 3477612, 00205089, 8236342 ####[facility] [address] [place] [address] Urea nitrogen/Creatinine [Mass ratio] 19 No Units Normal 10-20 [facility] Comment on above: Performed By: #### 1 4472199, 14935372, 4282495, 1299564, 8248572, 7774410, 42038636, 3613592 ####[facility] [address] [place] [address] COAGULATIONOrdered By: Nuvia Carrillo on 06-22-2023 aPTT Coag (PPP) [Time] 36.0 s Normal 25.1 - 36.5 second(s) [facility] Auto Coag Comment on above: Interpretive Data: Tami abraham 15 days - 4 weeks 1 - [...] the same coagulation reagent and instrumentation as [facility]. Currently there are no coagulation studies available worldwide for children to 14 days, and no normal ranges. Heparin therapeutic range (represented by Anti-Factor Xa activity of 0.2 - 0.4 U/mL) corresponds to PTT of 56.6 - 109.0 sec. INR Coag (PPP) [Relative time] 0.96 {INR} Invalid Interpretation Code [facility] Comment on above: Interpretive Data: I NR results are specifically intended to assess patients stabilized on long-term Anticoagulation therapy suggested INR s Less Intensive Anticoagulation 2.0 3.0 Conventional Range 3.0 4.5 PT Coag (PPP) [Time] 10.7 s Normal 9.4 - 1 2.5 second(s) [facility] Comment on above: Interpretive Data: [...] the same coagulation reagent and instrumentation as [facility]. Currently there are no coagulation studies available worldwide for children to 14 days, and no normal ranges. Consent for Treatmenton 05-25 Consent for Treatment [id number]#1.00 TIFF Normal [facility] Consent for Treatment [id number]#1.00T IFF Normal [facility] Discharge Instructionson Discharge Instructions [id number]#1.00 TIFF Normal [facility] ED Clinical Summaryon 2023 ED Clinical Summary Normal [facility] ED Note-Physicianon 06-22-19 ED Note-Physician Normal [facility] Comment on above: Result Comment: Elec tronically Signed By: Susu Lamar PA-C\.br\Date and Time Signed: 06/22/23 15:59 EDT\.br\Electronically Co-Signed By: Nikhil Tubbs DO\.br\Date and Time Co-Signed: 06/22/23 18:54 EDT ED Patient Education Noteon 06-22-2023 ED Patient Education Note Normal [facility] ED Patient Summaryon 024 ED Patient Summary Normal [facility] HEMATOLOGYOrdered By: SYSTEM SYSTEM on 06-22-2023 Basophils/100 WBC (Bld) 0.1 % Normal 0.0 - 2.0 % [facility] Heme Basophils/Leukocytes Auto (Bld) [Pure # fraction] 0.0 E9/L Normal 0.0 - 0.2 E9/L [facility] Eosinophils (Bld) [#/Vol] 0.1 E9/L Normal 0.0 - 0.5 E9/L [facility] Eosinophils/100 WBC (Bld) 0.9 % Normal 0.0 - 8.0 % [facility] Erythrocyte distribution width (RBC) [Ratio] 13.3 % Normal 10.9 - 14.2 % [facility] Hematocrit (Bld) [Volume fraction] 45.0 % Normal 34.0 - 46.0 % [facility] Hemoglobin (Bld) [Mass/Vol] 15.1 g/dL Normal 12.0 - 16.0 gm/dL [facility] Lymphocytes (Bld) [#/Vol] 0.4 E9/L Low 1.0 - 4.0 E9/L [facility] Lymphocytes/100 WBC (Bld) 3.7 % Low 14.0 - 50.0 % [facility] MCH (RBC) [Entitic mass] 31.5 pg Normal 27.0 - 34.0 pg [facility]e MCHC (RBC) [Mass/Vol] 33.5 g/dL Normal 31.4 - 36.0 gm/dL [facility] MCV (RBC) [Entitic vol] 94.2 fL Normal 80.0 - 100.0 fL [facility] Monocytes (Bld) [#/Vol] 0.3 E9/L Normal 0.2 - 1.0 E9/L [facility] Monocytes/100 WBC (Bld) 3.2 % Low 4.0 - 14.0 % [facility] Neutrophils (Bld) [#/Vol] 9.5 E9/L High 2.0 - 7.5 E9/L [facility] Neutrophils/100 WBC (Bld) 92.1 % High 36.0 - 75.0 % [facility] Platelet 308.0 E9/L Normal 150.0 - 500.0 E9/L [facility] Platelet mean volume (Bld) [Entitic vol] 8.7 fL Normal 6.4 - 10.8 fL [facility] RBC (Bld) [#/Vol] 4.8 E12/L Normal 4.3 - 5.9 E12/L [facility] WBC corrected for nucl RBC Auto (Bld) [#/Vol] 10.3 E9/L Normal 4.0 - 11.0 E9/L [facility]-1/2 [facility] 1+2 Ab and HIV1 p24 Ag IA.rapid Nom (S/P/Bld) Negative Normal Negative [facility] Comment on above: Performed By: #### 8 [id number] ####[facility] [address] [place] [address] HIV 1+2 Ab+HIV1 p24 Ag IA Ql Non-Reactive Normal Non-Reactive [facility] Comment on above: Performed By: #### 8 46475812 ####[facility] [address] [place] [address] HIV Combo Internal Control Line Reactive Normal Reactive [facility] Comment on above: Performed By: #### 8 [id number] ####[address] [place] [address] HIV-1/2 Ag/Ab Combo Negative for HIV-1 and/or HIV-2 antibodies and HIV-1 p24 antigen. Normal Negative [facility] Influenza A&B Agon Influenzae A Ag Negative Normal Negative [facility] Comment on above: Performed By: #### 1 0374253, [id number] ####[address] [address] Influenzae B Ag Negative Normal Negative [facility] Comment on above: Result Comment: Test sensitivity and specificity vary for age group, specimen type, antigen types, and prevalence of disease. Test results must be evaluated in conjunction with other clinical data available to the physician. Individuals who received nasally administered Influenza A vaccine may have positive test results up to 3 days after vaccination. Performed By: #### 1 8415172, [id number] ####[address] [place] [address] Lactic Acidon 06-22-2023 Lactic Acid Lvl 1.4 mmol/L Normal 0.5-2.2 [facility] Comment on above: Performed By: #### 1 9677521, 26905944, 0970538, 6366111, 7435438, 5651027, 53980257, 2610986 ####[address] [place] [address] Lipase Levelon 06-22-2023 Lipase [Catalytic activity/Vol] U/L Low 13-58 [facility] Comment on above: Performed By: #### 1 2372994, 38292250, 4352639, 1097326, 3214019, 9644738, 35102091, 3188685 ####[facility] [address] [place] [address] MICRO OTHER TESTSOrdered By: Allen Hansen on 06-22-2023 Influenzae A Ag Negative (06/22/23 2:59 PM) Normal Negative [facility] Man Sero Influenzae B Ag Negative 2 (06/22/23 2:59 PM) Normal Negative [facility] Sero Comment on above: Interpretive Data: T [...] NEG Ctl Pass (06/22/23 2:59 PM) Normal [facility] Sero Rapid COV Int POS Ctl Pass (06/22/23 2:59 PM) Normal [facility] Sero SARS-CoV+SARS-CoV-2 (COVID-19) Ag IA.rapid Ql (Resp) Not Detected 7 (06/22/23 2:59 PM) Normal Not Detected [facility] Sero Comment on above: Interpretive Data: T he Branch Veritor System for Rapid Detection of SARS-CoV-2 [...] the authorization is terminated or revoked sooner. Magnesiumon 06-22-2023 Magnesium [Mass/Vol] 1.8 mg/dL Normal 1.3-2.4 [facility] Comment on above: Performed By: #### 1 2195249, 64673456, 9708816, 9737999, 1320108, 6375728, 86357897, 5188663 ####[facility] [address] [place] [address] PT & PTTon 06-22-2023 aPTT Coag (PPP) [Time] 36.0 second(s) Normal 25.1-36.5 [facility] Comment on above: Result Comment: Para meter [...] the same coagulation reagent and instrumentation as [facility]. Currently there are no coagulation studies available worldwide for children to 14 days, and no normal ranges. Heparin therapeutic range (represented by Anti-Factor Xa activity of 0.2 - 0.4 U/mL) corresponds to PTT of 56.6 - 109.0 sec. Performed By: #### 1 1440694, 00999572, 7116620, 8106728, 9769708, 0179671, 38090485, 0317061 ####[facility] [address] [place] [address] INR Coag (PPP) [Relative time] 0.96 {INR} Invalid Interpretation Code [facility] Comment on above: Result Comment: INR results are specifically intended to assess patients stabilized on long-term Anticoagulation therapy suggested INR?s ?Less Intensive Anticoagulation? 2.0 ? 3.0Conventional Range 3.0 ? 4.5 Performed By: #### 1 3270226, 15798190, 6009543, 8948349, 6428644, 6520315, 30593205, 0390124 ####[facility] [address] [place] [address] PT Coag (PPP) [Time] 10.7 second(s) Normal 9.4-12.5 [facility] Comment on above: Result Comment: 15 d [...] the same coagulation reagent and instrumentation as [facility]. Currently there are no coagulation studies available worldwide for children to 14 days, and no normal ranges. Performed By: #### 1 2895718, 35979948, 9426191, 9244070, 5954872, 6497998, 91869719, 7268783 ####[facility] [address] [place] [address] Physician Orderon 06-22-2023 Physician Order [id number]#1.00 TIFF Normal [facility] RAD - Preliminary Cat Scan R cornelia 06-22-2023 RAD - Preliminary Cat Scan Report [id number]#1.00 TIFF Normal [facility] Rapid COVID Antigen ([facility])on 06-22-2023 Rapid COV Int NEG Ctl Pass Normal Fis [facility] Comment on above: Performed By: #### 1 9611132, [id number] ####[facility] [address] [place] [address] Rapid COV Int POS Ctl Pass Normal Fis [facility] Comment on above: Performed By: #### 1 4433118, [id number] ####[facility] [address] [place] [address] SARS-CoV+SARS-CoV-2 (COVID-19) Ag IA.rapid Ql (Resp) Not detected Normal Not Detected [facility] Comment on above: Result Comment: The Branch Veritor? System for Rapid Detection of SARS-CoV-2 [...] in patient care settings operating under a [place] Certificate of Waiver, Certificate of Compliance, or [...] or revoked sooner. Performed By: #### 1 0679797, [id number] ####[address] [place] [address] Troponin 0 Hr.on 06-22-2023 Troponin 3.10 pg/mL Low 10.10-27.10 [facility] Comment on above: Result Comment: The 95% CI (Confidence Interval) PPV (Positive Predictive Value) for myocardial infarction in females is 38 pg/mL, in males 51 pg/mL. The results should be used in conjunction with clinical conditions of myocardial infarction.(Access High Sensitivity Troponin I Instructions For Use, Katlyn Washington, October 2017) Performed By: #### 1 1018782, 46437603, 5288903, 7716012, 7796857, 7842189, 43522965, 2283876 ####[address] [place] [address] UA with Cult Rflxon 06-22-19 24 Color (U) Yellow Normal Yellow [facility] Comment on above: Result Comment: Micr oscopic readings are only performed on those samples that meet specific criteria set forth by [facility]. Performed By: #### 4 [id number] ####[address] [place] [address] Glucose (U) [Mass/Vol] Negative Normal Negative Fi [facility] Comment on above: Performed By: #### 4 [id number] ####[facility] [address] [place] [address] Ketones Ql (U) Negative Normal Negative [facility] Comment on above: Performed By: #### 4 [id number] ####[facility] [address] [facility] [place] [address] UA Blood Negative Normal Negative [facility] Comment on above: Performed By: #### 4 [id number] ####[facility] [address] [facility] [place] [address] UA Clarity Clear Normal Clear [facility] Comment on above: Performed By: #### 4 [id number] ####[facility] [address] [place] [address] UA Leuk Est Negative Normal Negative [facility] Comment on above: Performed By: #### 4 [id number] ####[facility] [address] [place] [address] UA Nitrite Negative Normal Negative [facility] Comment on above: Performed By: #### 4 [id number] ####[facility] [address] [place] [address] UA pH 7.0 Invalid Interpretation Code 5.0-9.0 [facility] Comment on above: Performed By: #### 4 [id number] ####[facility] [address] [place] [address] UA Protein Trace Abnormal Negative [facility] Comment on above: Performed By: #### 4 [id number] ####[facility] [address] [place] [address] UA Spec Grav 1.028 Invalid Interpretation Code 1.005-1.030 [facility] Comment on above: Performed By: #### 4 [id number] ####[facility] [address] [facility] [place] [address] UA Urobilinogen Negative Normal Negative [facility] Comment on above: Performed By: #### 4 [id number] ####[facility] [address] [place] [address] Urobilinogen (U) [Mass/Vol] Negative Normal Negative [facility] Comment on above: Performed By: #### 4 [id number] ####[facility] [address] [place] [address] UA Spec Desc Clean Catch Normal [facility] Comment on above: Performed By: #### 4 [id number] ####[facility] [address] [place] [address] URINALYSISOrdered By: SYSTEM SYSTEM on 06-22-2023 Color (U) Yellow 1 (06/22/23 3:09 PM) Normal Yellow [facility] UA Auto SS Comment on above: Interpretive Data: M icroscopic readings are only performed on those samples that meet specific criteria set forth by [facility]. Glucose (U) [Mass/Vol] Negative Normal Negat ivemg/d L [facility] UA Auto SS Ketones Ql (U) Negative Normal Negativemg/d L [facility] UA Auto SS UA Blood Negative Normal Negativemg/d L [facility] UA Auto SS UA Clarity Clear (06/22/23 3:09 PM) Normal Clear [facility] UA Auto SS UA Leuk Est Negative Normal NegativeLeu/ uL [facility] UA Auto SS UA Nitrite Negative Normal Negativemg/d L [facility] UA Auto SS UA pH 7.0 *NA* (06/22/23 3:09 PM) Invalid Interpretation Code 5.0 - 9.0 [facility] UA Auto SS UA Protein Trace mg/dL Invalid Interpretation Code Negativemg/d L [facility] UA Auto SS UA Spec Grav 1.028 *NA* (06/22/23 3:09 PM) Invalid Interpretation Code 1.005 - 1.030 [facility] UA Auto SS UA Urobilinogen Negative Normal Negativemg/d L [facility] UA Auto SS Urobilinogen (U) [Mass/Vol] Negative Normal Negativemg/d L [facility] UA Auto SS URINALYSISOrdered By: Susu Lamar on 06-22-2023 UA Spec Desc Clean Catch (06/22/23 3:09 PM) Normal [facility] UA Auto SS eGFRon 06-22-2023 eGFR 108 mL/min/1.73 m2 Normal >=59 [facility] Comment on above: Order Comment: Order added by Discern Expert. Performed By: #### 1 [id number], [id number], [id number], [id number], [id number], [id number], [id number], [id number] ####[facility] [address] [place] [address] Hepatic function 2000 panelo n 06-17-2023 Albumin BCP dye [Mass/Vol] 4.0 g/dL Normal 3.4-5.0 [facility] Comment on above: Performed By: #### 5 902-2 #### JOLENE Cantu ([id number]) [facility] ([facility]) [address] [place] [address] ALP [Catalytic activity/Vol] 87 U/L Normal 33-110 [facility] Comment on above: Performed By: #### 5 902-2 #### JOLENE Cantu ([id number]) [facility] ([facility]) [address] [place] [address] ALT With P-5'-P [Catalytic activity/Vol] 18 U/L Normal 7-45 [facility] Comment on above: Result Comment: Katia ents treated with Sulfasalazine may generate falsely decreased results for ALT. Performed By: #### 5 902-2 #### JOLENE Cantu ([id number]) [facility] ([facility]) [address] [place] [address] AST With P-5'-P [Catalytic activity/Vol] 18 U/L Normal 9-39 [facility] Comment on above: Performed By: #### 5 902-2 #### JOLENE Cantu ([id number]) [facility] ([facility]) [address] [place] [address] Bilirubin [Mass/Vol] 0.5 mg/dL Normal 0.0-1.2 [facility] Comment on above: Performed By: #### 5 902-2 #### JOLENE Cantu ([id number]) [facility] ([facility]) [id number] [place] [address] Bilirubin.direct [Mass/Vol] 0.1 mg/dL Normal 0.0-0.3 [facility] Comment on above: Performed By: #### 5 902-2 #### JOLENE Cantu ([id number]) [facility] ([facility]) [address] [place] [address] Protein [Mass/Vol] 7.0 g/dL Normal 6.4-8.2 [facility] Comment on above: Performed By: #### 5 902-2 #### JOLENE Cantu ([id number]) [facility] ([facility]) [address] [place] [address] Consent for Treatmenton 05-24 Consent for Treatment [id number] IFF Normal [facility] Discharge Instructionson Discharge Instructions [id number]#1.00T IFF Normal [facility] ED Clinical Summaryon 2023 ED Clinical Summary Normal [facility] ED Note-Physicianon 06-15-19 ED Note-Physician Normal [facility] Comment on above: Result Comment: Elec tronically Signed By: Balbina Bryant M.D.\.br\Date and Time Signed: 06/15/23 18:34 EDT ED Patient Education Noteon 06-15-2023 ED Patient Education Note Normal [facility] ED Patient Summaryon 024 ED Patient Summary Normal [facility] Consent for Treatmenton 05-23 Consent for Treatment [id number]#1.00T IFF Normal [facility] Discharge Instructionson Discharge Instructions [id number]#1.00T IFF Normal [facility] ED Clinical Summaryon 2023 ED Clinical Summary Normal [facility] ED Note-Physicianon 06-11-19 ED Note-Physician Normal [facility] Comment on above: Result Comment: Elec tronically Signed By: Elisa Sánchez DO\.br\Date and Time Signed: 06/11/23 22:47 EDT ED PROVIDER NOTESon 06-11-19 Php Ed Provider Note ED Provider Note: L ast filed note HNO ID: [id number] Author: Allyson Griffiths DO Service: ? Author Type: Physician Filed: 06/11/23 1012 Note Text: I have seen Jerad Tracy with the [facility] and have personally evaluated this patient myself. I am in agreement with the history and physical examination, past medical history, allergies, medications, and medical decision-making as documented by the [facility]. I am also in agreement with the workup performed here in the emergency department. I have personally made/approved the management plan and take responsibility for the patient management. Please see documentation by the [facility] for full H department evaluation, and medical decision-making. Electronically signed by: Allyson Griffiths DO, 06/11/2023 10:12 AM Normal [facility] ED Patient Education Noteon 06-11-2023 ED Patient Education Note Normal [facility] ED Patient Summaryon 024 ED Patient Summary Normal [facility] ED NOTESon 06-08-2023 [facility] Ed Note ED Note: Last filed note HNO ID: [id number] Author: Munira Perez RN Service: ? Author Type: Registered Nurse Filed: 06/08/23 7078 Note Text: Registration called for registration as pt has been up for discharge for 20 min. Normal [facility] ED PROVIDER NOTESon 06-08-19 [facility] Ed Provider Note ED Provider Note: L ast filed note HNO ID: [id number] Author: Flex Jansen PA-C Service: Emergency Medicine Author Type: Physician [employer] Filed: 06/08/23 9784 Note Text: TRIAGE CHIEF COMPLAINT: Chief Complaint [...] history. CURRENT MEDICATIONS: Home medications reviewed. ALLERGIES: Hydrocodone-acetaminoph en and Penicillin g PHYSICAL EXAM: VITAL SIGNS: [...] Discussed with attending who did evaluate patient [id number], developed plan for pain control here, will be given fentanyl dose here with Zofran. Being prescription for Percocet. Encourage rest hydration outpatient follow-up as discussed, close return precautions if symptoms get worse. Did discuss with attending, Allyson Griffiths DO, who did evaluate patient [id number]. Patient otherwise stable at this time, vital signs are stable, patient afebrile, and nontoxic in appearance. Attending physician available for immediate consultation throughout entire patient's stay. Decision to Disposition Home or Admit: Discharge FINAL IMPRESSION: 1. Bilateral low back pain Normal [facility] ED TRIAGEon 06-08-2023 [facility] Ed Triage Note ED Triage Note: Last filed note HNO ID: [id number] Author: Cheryl Joiner RN Service: Emergency Medicine Author Type: Registered Nurse Filed: 06/08/23 3515 Note Text: Pt arrives via triage for complaints of lower back apin. Pt states she has hx of bulging disc and states that she was in the car for a long time and thinks that it aggravated her pain more. Normal [facility] ED Note-Physicianon 06-04-19 24 ED Note-Physician Normal [facility] Comment on above: Result Comment: Elec tronically Signed By: Landon Tidwell PA-C\.br\Date and Time Signed: 06/03/23 19:41 EDT\.br\Electronically Co-Signed By: Pedro Pablo Fletcher DO\.br\Date and Time Co-Signed: 06/04/23 01:40 EDT Consent for Treatmenton 05-23 Consent for Treatment [id number] IFF Normal [facility] Discharge Instructionson Discharge Instructions [id number] 0TIFF Normal [facility] ED Clinical Summaryon 2023 ED Clinical Summary Normal [facility] ED Patient Education Noteon 06-03-2023 ED Patient Education Note Normal [facility] ED Patient Summaryon 024 ED Patient Summary Normal [facility] Alanine aminotransferase [En zymatic activity/volume] in Serum or PlasmaOrdered By: Deb Carmichael on 06-01-2023 ALT [Catalytic activity/Vol] 14 U/L Normal 7-52 [facility] Comment on above: Performed By: #### B MP, LIPASE, CBC, HEPATIC #### [address] Albumin [Mass/volume] in Ser um or Plasma by Bromocresol green (BCG) dye binding methoOrdered By: Deb Carmichael on 06-01-2023 Albumin BCG dye [Mass/Vol] 4.2 g/dL 3.5-5.7 [facility] Alkaline phosphatase [Enzyma tic activity/volume] in Serum or PlasmaOrdered By: Deb Carmichael on 06-01-2023 ALP [Catalytic activity/Vol] 69 U/L Normal 34-104 [facility] Comment on above: Performed By: #### B MP, LIPASE, CBC, HEPATIC #### [address] Aspartate aminotransferase [ Enzymatic activity/volume] in Serum or PlasmaOrdered By: Deb Carmichael on 06-01-2023 AST [Catalytic activity/Vol] 16 U/L Normal 13-39 [facility] Comment on above: Result Comment: PERF ORMED BY: [place] [address] PATHOLOGIST JOB RECRUITER JASON WILSON M.D. Performed By: #### C BC, CMP, CUBLD #### [address] Automated basophil %Ordered By: Deb Carmichael on 06-01-2023 Basophils/100 WBC (Bld) 0.4 % Normal . [facility] Comment on above: Performed By: #### B MP, LIPASE, CBC, HEPATIC #### [address] Automated basophil countOrde red By: Deb Carmichael on 06-01-2023 Basophils (Bld) [#/Vol] 0.0 10*3/uL Normal 0.0-0.2 [facility] Comment on above: Result Comment: PERF ORMED BY: [place] [address] PATHOLOGIST JOB RECRUITER JASON WILSON M.D. Performed By: #### B MP, LIPASE, CBC, HEPATIC #### [address] Automated blood monocyte cou ntOrdered By: Deb Carmichael on 06-01-2023 Monocytes (Bld) [#/Vol] 0.6 10*3/uL Normal 0.0-0.8 [facility] Comment on above: Performed By: #### B MP, LIPASE, CBC, HEPATIC #### [address] Automated eosinophil %Ordere d By: Deb Adrianekath on 06-01-2023 Eosinophils/100 WBC (Bld) 2.6 % Normal . [facility] Comment on above: Performed By: #### B MP, LIPASE, CBC, HEPATIC #### [address] Automated eosinophil countOr dered By: Deb Carmichael on 06-01-2023 Eosinophils (Bld) [#/Vol] 0.3 10*3/uL Normal 0.0-0.45 [facility] Comment on above: Performed By: #### B MP, LIPASE, CBC, HEPATIC #### [address] Automated monocyte %Ordered By: Deb Carmichael on 06-01-2023 Monocytes/100 WBC (Bld) 6.0 % Normal . [facility] Comment on above: Performed By: #### B MP, LIPASE, CBC, HEPATIC #### [address] Automated neutrophil %Ordere d By: Deb Adrianekath on 06-01-2023 Neutrophils/100 WBC (Bld) 60.6 % Normal . [facility] Comment on above: Performed By: #### B MP, LIPASE, CBC, HEPATIC #### [address] Automated urine color determ inationOrdered By: PROVIDER TEMP on 06-01-2023 Color (U) Yellow Normal Yellow [facility] Comment on above: Order Comment: Name Collection Type:: Clean-Voided Midstream Performed By: #### C BC, CMP, CUBLD #### [facility] [address] Basic Metabolic Panelon 030 Anion gap [Moles/Vol] Not performed Normal 6.0-15.0 [facility] Comment on above: Performed By: #### B MP, LIPASE, CBC, HEPATIC #### [facility] [address] Creatinine Clr Calc Pharmacy 122.15 Normal [facility] Comment on above: Performed By: #### B MP, LIPASE, CBC, HEPATIC #### [facility] [address] GFR/1.73 sq M.predicted MDRD (S/P/Bld) [Vol rate/Area] mL/min/{1.73_m2} Normal [facility] Comment on above: Performed By: #### B MP, LIPASE, CBC, HEPATIC #### [facility] [address] Potassium Normal 3.5-5.1 [facility] Comment on above: Result Comment: Spec imen hemolyzed, redraw requested Performed By: #### B MP, LIPASE, CBC, HEPATIC #### [facility] [address] Bilirubin Test strip Ql (U)O rdered By: PROVIDER TEMP on 06-01-2023 Bilirubin Ql (U) Negative Negative [facility] Bilirubin.direct [Mass/volum e] in Serum or PlasmaOrdered By: Deb Carmichael on 06-01-2023 Bilirubin.direct [Mass/Vol] 0.10 mg/dL 0.03-0.18 [facility] Bilirubin.total [Mass/volume ] in Serum or PlasmaOrdered By: Deb Carmichael on 06-01-2023 Bilirubin [Mass/Vol] 0.5 mg/dL Normal 0.3-1.0 [facility] Comment on above: Performed By: #### B MP, LIPASE, CBC, HEPATIC #### [facility] [address] abdomen pelvis w conon CT abdomen pelvis w con [facility] [place] [address] [place] [address] CT Scan Report Signed Patient: Jerad Tracy MR#: [id number] 49 : 1975 Acct:[id number] Age/Sex: 48 / F ADM Date: 06/01/23 Loc: ER Room: Type: [facility] ER Attending Dr: Copies to: Deb Carmichael [...] Idalia Juarez M.D.06/01/2023 3:07 PM Dictation Location: [place] [address] Transcribed By: BRYCE 06/01/23 1507 Dictated By: Idalia Juarez MD 06/01/23 1501 Signed By: 06/01/23 1507 Normal [facility] Calcium [Mass/volume] in Ser um or PlasmaOrdered By: Deb Carmichael on 06-01-2023 Calcium [Mass/Vol] 9.0 mg/dL Normal 8.6-10.3 [facility] Comment on above: Performed By: #### B MP, LIPASE, CBC, HEPATIC #### [address] Carbon dioxide, total [Moles /volume] in Serum or PlasmaOrdered By: Deb Carmichael on 06-01-2023 CO2 [Moles/Vol] 25.6 mmol/L Normal 21.0-31.0 [facility] Comment on above: Performed By: #### B MP, LIPASE, CBC, HEPATIC #### [address] Chloride [Moles/volume] in S saw or PlasmaOrdered By: Deb Carmichael on 06-01-2023 Chloride [Moles/Vol] 102 mmol/L Normal 98-107 [facility] Comment on above: Performed By: #### B MP, LIPASE, CBC, HEPATIC #### [address] Complete Blood Count Auto Di ffon 06-01-2023 Mean Corpuscular HGB Conc 33.9 g/dL Normal 32.0-35.0 [facility] Comment on above: Performed By: #### B MP, LIPASE, CBC, HEPATIC #### [place] [address] [place] Monocytes/100 WBC (Bld) 18.80 % Normal 0.00-20.00 [facility] Comment on above: Performed By: #### B MP, LIPASE, CBC, HEPATIC #### [address] NRBC% 0.1 /100{WBC} Normal 0-0.5 [facility] Comment on above: Performed By: #### B MP, LIPASE, CBC, HEPATIC #### [facility] [address] Creatinine [Mass/volume] in Serum or PlasmaOrdered By: Deb Carmichael on 06-01-2023 Creatinine [Mass/Vol] 0.64 mg/dL Normal 0.60-1.20 [facility] Comment on above: Performed By: #### B MP, LIPASE, CBC, HEPATIC #### [facility] [address] ECG 12 lead ECGon 06-01-2023 ECG 12 lead ECG [facility] [place] [address] [place] [address] Electrocardiograph Report Signed Patient: Jerad Tracy MR#: [id number] 49 : 1975 Acct:[id number] Age/Sex: 48 / F ADM Date: 06/01/23 Loc: ER Room: Type: [facility] ER Attending Dr: Ordering Provider: Deb Carmichael [...] By: MUS Signed By Vlad Martinez DO 183 Normal [facility] ED Note-Physicianon 06-01-19 ED Note-Physician Normal [facility] Comment on above: Result Comment: Elec tronically Signed By: Robert Taylor PA-C\.br\Date and Time Signed: 05/31/23 18:10 EST\.br\Electronically Co-Signed By: Jorge Mcintosh DO\.br\Date and Time Co-Signed: 06/01/23 07:39 EST Erythrocyte distribution wid th [Ratio] by Automated countOrdered By: Deb Carmichael on 06-01-2023 Erythrocyte distribution width (RBC) [Ratio] 13.4 % Normal 11.9-15.3 [facility] Comment on above: Performed By: #### B MP, LIPASE, CBC, HEPATIC #### [facility] [address] [place] [address] [place] Erythrocytes [#/volume] in B lood by Automated countOrdered By: Deb Carmichael on 06-01-2023 RBC (Bld) [#/Vol] 4.75 10*6/uL Normal 3.60-5.00 [facility] Comment on above: Performed By: #### B MP, LIPASE, CBC, HEPATIC #### [facility] [address] [place] [address] [place] Glucose [Mass/volume] in Ser um or PlasmaOrdered By: Deb Carmichael on 06-01-2023 Glucose [Mass/Vol] 92 mg/dL Normal 70-100 [facility] Comment on above: ADA recommended refe rence rangeRandom Glucose Reference Range is dependent on time and content of last meal. Glucose of more than 200 mg/dL in a nonstressed, ambulatory subject supports the diagnosis of Diabetes Mellitus. Result Comment: [place] om Glucose Reference Range is dependent on time and content of last meal. Glucose of more than 200 mg/dL in a nonstressed, ambulatory subject supports the diagnosis of Diabetes Mellitus. ADA recommended reference range Performed By: #### B MP, LIPASE, CBC, HEPATIC #### [facility] [address] [place] [id number] [place] Hematocrit [Volume Fraction] of Blood by Automated countOrdered By: Deb Carmichael on 06-01-2023 Hematocrit (Bld) [Volume fraction] 44.7 % Normal 34.0-46.4 [facility] Comment on above: Performed By: #### B MP, LIPASE, CBC, HEPATIC #### [facility] [address] [place] [id number] [place] Hemoglobin [Mass/volume] in BloodOrdered By: Deb Carmichael on 06-01-2023 Hemoglobin (Bld) [Mass/Vol] 15.1 g/dL Normal 11.8-15.4 [facility] Comment on above: Performed By: #### B MP, LIPASE, CBC, HEPATIC #### [facility] [address] Hepatic Panelon 06-01-2023 Albumin [Mass/Vol] 4.2 g/dL Normal 3.5-5.7 [facility] Comment on above: Performed By: #### B MP, LIPASE, CBC, HEPATIC #### [facility] [address] Aspartate Amino Transferase Normal 13-39 [facility] Comment on above: Result Comment: Spec imen hemolyzed, redraw requested Performed By: #### B MP, LIPASE, CBC, HEPATIC #### [facility] [address] Bilirubin,Direct Normal 0.03-0.18 [facility] Comment on above: Result Comment: Spec imen hemolyzed, redraw requested Performed By: #### B MP, LIPASE, CBC, HEPATIC #### [facility] [address] Bilirubin,Indirect Not performed Normal [facility] Comment on above: Performed By: #### B MP, LIPASE, CBC, HEPATIC #### [facility] [address] [place] [id number] [facility] Ketones Auto test strip (U) [Mass/Vol]Ordered By: PROVIDER TEMP on 06-01-2023 Ketones (U) [Mass/Vol] Negative Negative [facility] Leukocytes [#/volume] correc lisa for nucleated erythrocytes in Blood by Automated counOrdered By: Deb Carmichael on 06-01-2023 WBC corrected for nucl RBC Auto (Bld) [#/Vol] 10.7 10*3/uL 3.8-11.6 [facility] Leukocytes [#/volume] in Blo od by Automated countOrdered By: Deb Carmichael on 06-01-2023 WBC (Bld) [#/Vol] 10.7 10*3/uL Normal 3.8-11.6 [facility] Comment on above: Performed By: #### B MP, LIPASE, CBC, HEPATIC #### [address] Lipase [Enzymatic activity/v olume] in Serum or PlasmaOrdered By: Deb Carmichael on 06-01-2023 Lipase [Catalytic activity/Vol] 13.0 U/L Normal 11.0-82.0 [facility] Comment on above: Result Comment: PERF ORMED BY: [place] [address] PATHOLOGIST JOB RECRUITER JASON WILSON M.D. Performed By: #### B MP, LIPASE, CBC, HEPATIC #### [address] Lymphocytes [#/volume] in Bl ood by Automated countOrdered By: Deb Carmichael on 06-01-2023 Lymphocytes (Bld) [#/Vol] 3.2 10*3/uL Normal 1.00-4.8 [facility] Comment on above: Performed By: #### B MP, LIPASE, CBC, HEPATIC #### [address] Lymphocytes/100 leukocytes i n Blood by Automated countOrdered By: Deb Carmichael on 06-01-2023 Lymphocytes/100 WBC (Bld) 30.4 % Normal . [facility] Comment on above: Performed By: #### B MP, LIPASE, CBC, HEPATIC #### [address] MCH [Entitic mass] by Automa lisa countOrdered By: Deb Carmichael on 06-01-2023 MCH (RBC) [Entitic mass] 31.8 pg Normal 24.7-34.3 [facility] Comment on above: Performed By: #### B MP, LIPASE, CBC, HEPATIC #### [address] MCHC Auto (RBC) [Mass/Vol]Or dered By: Deb Carmichael on 06-01-2023 MCHC (RBC) [Mass/Vol] 33.9 g/dL 32.0-35.0 [facility] MCV [Entitic volume] by Auto mated countOrdered By: Deb Carmichael on 06-01-2023 MCV (RBC) [Entitic vol] 94.0 fL Normal 80-100 [facility] Comment on above: Performed By: #### B MP, LIPASE, CBC, HEPATIC #### [facility] [address] [place] [address] Monocyte distribution width [Entitic volume] in Blood by AutomatedOrdered By: Deb Carmichael on 06-01-2023 Monocyte distribution width Auto (Bld) [Entitic vol] 18.80 % 0.00-20.00 [facility] Neutrophils [#/volume] in Bl ood by Automated countOrdered By: Deb Carmichael on 06-01-2023 Neutrophils (Bld) [#/Vol] 6.5 10*3/uL Normal 1.8-7.7 [facility] Comment on above: Performed By: #### B MP, LIPASE, CBC, HEPATIC #### [facility] [address] [place] [address] Nitrite Test strip Ql (U)Ord ered By: MOLLY TEMP on 06-01-2023 Nitrite Ql (U) Negative Negative [facility] No Panel InformationOrdered By: Deb Carmichael on 06-01-2023 Estimated GFR (CKD-EPI) > 60.0 mL/Min [facility] Creatinine Clearance (Chem 122.15 [facility] Nucleated erythrocytes [Pres ence] in Blood by Automated countOrdered By: Deb Carmichael on 06-01-2023 Nucleated RBC Auto Ql (Bld) 0.1 /100{WBC} 0-0.5 [facility] Platelet mean volume [Entiti c volume] in Blood by Automated countOrdered By: Deb Carmichael on 06-01-2023 Platelet mean volume (Bld) [Entitic vol] 9.0 fL Normal 6.3-10.7 [facility] Comment on above: Performed By: #### B MP, LIPASE, CBC, HEPATIC #### [facility] [address] Platelets [#/volume] in Bloo d by Automated countOrdered By: Deb Carmichael on 06-01-2023 Platelets (Bld) [#/Vol] 311 10*3/uL Normal 150-450 [facility] Comment on above: Performed By: #### B MP, LIPASE, CBC, HEPATIC #### [address] Potassium [Moles/volume] in Serum or PlasmaOrdered By: Deb Carmichael on 06-01-2023 Potassium [Moles/Vol] 4.2 mmol/L Normal 3.5-5.1 [facility] Comment on above: Performed By: #### C BC, CMP, CUBLD #### [address] Protein Auto test strip (U) [Mass/Vol]Ordered By: PROVIDER TEMP on 06-01-2023 Protein (U) [Mass/Vol] Negative Negative [facility] Protein [Mass/volume] in Ser um or PlasmaOrdered By: Deb Carmichael on 06-01-2023 Protein [Mass/Vol] 7.9 g/dL Normal 6.4-8.9 [facility] Comment on above: Performed By: #### B MP, LIPASE, CBC, HEPATIC #### [address] Redraw Bilirubin,Directon Redraw Bilirubin,Direct 0.10 mg/dL Normal 0.03-0.18 [facility] Comment on above: Performed By: #### C BC, CMP, CUBLD #### [address] Serum globulin measurement b y calculation (mass/volume)Ordered By: Deb Carmichael on 06-01-2023 Globulin (S) [Mass/Vol] 3.7 g/dL Normal [facility] Comment on above: Performed By: #### B MP, LIPASE, CBC, HEPATIC #### [address] Serum or plasma albumin/glob ulin mass ratioOrdered By: Deb Carmichael on 06-01-2023 Albumin/Globulin [Mass ratio] 1.1 {ratio} Normal [facility] Comment on above: Performed By: #### B MP, LIPASE, CBC, HEPATIC #### [facility] [address] Serum or plasma anion gap de terminationOrdered By: Deb Carmichael on 06-01-2023 Anion gap [Moles/Vol] TNP [facility] Comment on above: Test not performed Serum or plasma non-glucuron idated bilirubin measurement (mass/volume)Ordered By: Deb Carmichael on 06-01-2023 Bilirubin.indirect [Mass/Vol] TNP [facility] Comment on above: Test not performed Sodium [Moles/volume] in Ser um or PlasmaOrdered By: Deb Carmichael on 06-01-2023 Sodium [Moles/Vol] 136 mmol/L Normal 136-145 [facility] Comment on above: Performed By: #### B MP, LIPASE, CBC, HEPATIC #### [facility] [address] [place] [address] Specific gravity Auto test s trip (U) [Rel density]Ordered By: MOLLY KURTZ on 06-01-2023 Specific gravity (U) [Rel density] 1.015 1.001-1.030 [facility] Troponin I High Sensitivityo n 06-01-2023 Troponin I High Sensitivity 3.5 pg/mL Normal 0.0-15.0 [facility] Comment on above: Result Comment: PERF ORMED BY: [place] [address] PATHOLOGIST JOB RECRUITER JASON WILSON M.D. Performed By: #### C BC, CMP, CUBLD #### [facility] [address] [place] [address] Troponin I.cardiac [Mass/vol ume] in Serum or Plasma by Detection limit <= 0.01 ng/Ordered By: Deb Carmichael on 06-01-2023 Troponin I.cardiac DL <= 0.01 ng/mL [Mass/Vol] 3.5 pg/mL 0.0-15.0 [facility] Urea nitrogen [Mass/volume] in Serum or PlasmaOrdered By: Deb Carmichael on 06-01-2023 Urea nitrogen [Mass/Vol] 18 mg/dL Normal 7-25 [facility] Comment on above: Performed By: #### B MP, LIPASE, CBC, HEPATIC #### [address] Urinalysison 06-01-2023 Appearance (U) Clear Normal Clear [facility] Comment on above: Order Comment: Name Collection Type:: Clean-Voided Midstream Performed By: #### C BC, CMP, CUBLD #### [address] Bilirubin,Urine Negative Normal Negative [facility] Comment on above: Order Comment: Name Collection Type:: Clean-Voided Midstream Performed By: #### C BC, CMP, CUBLD #### [address] Glucose Ql (U) Normal Normal Normal [facility] Comment on above: Order Comment: Name Collection Type:: Clean-Voided Midstream Performed By: #### C BC, CMP, CUBLD #### [address] Ketones Ql (U) Negative Normal Negative [facility] Comment on above: Order Comment: Name Collection Type:: Clean-Voided Midstream Performed By: #### C BC, CMP, CUBLD #### [address] Leukocyte esterase Test strip Ql (U) Negative Normal Negative [facility] Comment on above: Order Comment: Name Collection Type:: Clean-Voided Midstream Performed By: #### C BC, CMP, CUBLD #### [address] Nitrite,Urine Negative Normal Negative [facility] Comment on above: Order Comment: Name Collection Type:: Clean-Voided Midstream Performed By: #### C BC, CMP, CUBLD #### [address] Occult Blood,Urine Negative Normal Negative [facility] Comment on above: Order Comment: Name Collection Type:: Clean-Voided Midstream Result Comment: PERF ORMED BY: [place] [address] PATHOLOGIST JOB RECRUITER JASON WILSON M.D. Performed By: #### C BC, CMP, CUBLD #### [address] Protein,Urine Negative Normal Negative [facility] Comment on above: Order Comment: Name Collection Type:: Clean-Voided Midstream Performed By: #### C BC, CMP, CUBLD #### [address] Specificy [place],Urine 1.015 Normal 1.001-1.030 [facility] Comment on above: Order Comment: Name Collection Type:: Clean-Voided Midstream Performed By: #### C BC, CMP, CUBLD #### [place] [address] [place] Urobilinogen,Urine Normal Normal Normal [facility] Comment on above: Order Comment: Name Collection Type:: Clean-Voided Midstream Performed By: #### C BC, CMP, CUBLD #### [address] Urine clarity by refractomet ry automatedOrdered By: PROVIDER TEMP on 06-01-2023 Clarity Refractometry automated (U) Clear Clear [facility] Urine glucose measurement by automated test strip (mass/volume)Ordered By: PROVIDER TEMP on 06-01-2023 Glucose Auto test strip (U) [Mass/Vol] Normal mg/dL Normal [facility] Urine hemoglobin detection b y automated test stripOrdered By: PROVIDER TEMP on 06-01-2023 Hemoglobin Auto test strip Ql (U) Negative Negative [facility] Urine leukocyte esterase det ection by automated test stripOrdered By: PROVIDER TEMP on 06-01-2023 Leukocyte esterase Auto test strip Ql (U) Negative Negative [facility] Urine pH measurement by auto mated test stripOrdered By: PROVIDER TEMP on 06-01-2023 pH (U) 7.0 [pH] Normal 5.0-9.0 [facility] Comment on above: Order Comment: Name Collection Type:: Clean-Voided Midstream Performed By: #### C BC, CMP, CUBLD #### [address] Urobilinogen Auto test strip (U) [Mass/Vol]Ordered By: PROVIDER TEMP on 06-01-2023 Urobilinogen (U) [Mass/Vol] Normal mg/dL Normal [facility] XR chest 2V*on 06-01-2023 XR chest 2V* [facility] [place] [address] [place] [address] XRay Report Signed Patient: Jerad Tracy MR#: [id number] 49 : 1975 Acct:[id number] Age/Sex: 48 / F ADM Date: 06/01/23 Loc: ER Room: Type: [facility] ER Attending Dr: Copies to: Deb Carmichael [...] Idalia Juarez M.D.06/01/2023 5:24 PM Dictation Location: [place] [address] Transcribed By: [facility] 06/01/231723 Dictated By: Idalia Juarez MD 06/01/231722 Signed By: 06/01/23 172 Normal [facility] BMPOrdered By: SYSTEM SYSTEM on 05-31-2023 Anion gap [Moles/Vol] 11 mmol/L Normal 6-16 Rem isol Chem Comment on above: Performed By: #### 1 7930614, 0333111, 7652125, 5917223, 3942167, 59380884 ####[address] [address] Calcium [Mass/Vol] 9.0 mg/dL Normal 8.9-11.1 [facility] Comment on above: Performed By: #### 1 8571830, 4894592, 6209014, 6052849, 4769117, 27378790 ####[address] [address] Chloride [Moles/Vol] 104 mmol/L Normal 101-111 [facility] Comment on above: Performed By: #### 1 5558151, 3333958, 1613540, 1533531, 5574120, 52433317 ####[address] [address] CO2 [Moles/Vol] 27 mmol/L Normal 21-31 [facility] Comment on above: Performed By: #### 1 1015752, 9763844, 6183275, 1902109, 5200084, 55947763 ####[address] [address] Creatinine [Mass/Vol] 0.7 mg/dL Normal 0.5-1.3 Rem isol Chem Comment on above: Performed By: #### 1 0560244, 4273288, 4730750, 6007877, 2604093, 37379277 ####[address] [address] Glucose [Mass/Vol] 97 mg/dL Normal 55-199 [facility] Comment on above: Performed By: #### 1 5185683, 3503968, 7088412, 4381523, 7887208, 78126787 ####[address] [address] Potassium [Moles/Vol] 3.7 mmol/L Normal 3.5-5.3 Rem isol Chem Comment on above: Performed By: #### 1 5932326, 1580843, 9308036, 5705926, 3111825, 00195248 ####[facility] [address] [place] [address] Sodium [Moles/Vol] 138 mmol/L Normal 135-145 [facility] Comment on above: Performed By: #### 1 1997741, 9564195, 6351627, 2894188, 3941894, 22511224 ####[facility] [address] [place] [address] Urea nitrogen [Mass/Vol] 15 mg/dL Normal 5-21 [facility] Comment on above: Performed By: #### 1 6918137, 3423144, 9138475, 1998707, 4711029, 43321079 ####[address] [address] BMPon 05-31-2023 Urea nitrogen/Creatinine [Mass ratio] 21 No Units High 10-20 [facility] Comment on above: Performed By: #### 1 4374077, 0042373, 5998073, 0463653, 2500450, 66065732 ####[facility] [address] [place] [address] CBC w/ Auto DiffOrdered By: SYSTEM SYSTEM on 05-31-2023 Basophils/100 WBC (Bld) 0.5 % Normal 0.0-2.0 [facility] Comment on above: Performed By: #### 1 7674730, 0115155, 6904498, 0721059, 2771800, 42587583 ####[address] [address] Basophils/Leukocytes Auto (Bld) [Pure # fraction] 0.1 E9/L Normal 0.0-0.2 [facility] Comment on above: Performed By: #### 1 1562916, 7715511, 7662931, 3010346, 9197096, 10035037 ####[address] [address] Eosinophils (Bld) [#/Vol] 0.2 E9/L Normal 0.0-0.5 [facility] Comment on above: Performed By: #### 1 3886003, 1314790, 2868229, 4567142, 2679219, 86060568 ####[address] [address] Eosinophils/100 WBC (Bld) 2.1 % Normal 0.0-8.0 [facility] Comment on above: Performed By: #### 1 1375246, 3286347, 3315003, 6439867, 6702871, 18565255 ####[place] [address] Erythrocyte distribution width (RBC) [Ratio] 13.4 % Normal 10.9-14.2 [facility] Comment on above: Performed By: #### 1 6147242, 2504132, 2840463, 7122702, 9626163, 63455351 ####[place] [address] Hematocrit (Bld) [Volume fraction] 41.8 % Normal 34.0-46.0 [facility] Comment on above: Performed By: #### 1 6117517, 3807261, 6949267, 7360627, 5491777, 33215776 ####[place] [address]757 Hemoglobin (Bld) [Mass/Vol] 13.9 g/dL Normal 12.0-16.0 [facility] Comment on above: Performed By: #### 1 3928053, 4428297, 6965041, 7631041, 9119190, 88014855 ####[place] [address] [address] Lymphocytes (Bld) [#/Vol] 3.6 E9/L Normal 1.0-4.0 [facility] Comment on above: Performed By: #### 1 7750345, 8518873, 7014789, 9410754, 0718581, 03603447 ####[address] [address] Lymphocytes/100 WBC (Bld) 32.1 % Normal 14.0-50.0 [facility] Comment on above: Performed By: #### 1 3045696, 7890195, 3330729, 7934030, 5374382, 41616799 ####[place] [address]757 MCH (RBC) [Entitic mass] 31.4 pg Normal 27.0-34.0 [facility] Comment on above: Performed By: #### 1 3750781, 8697238, 1130246, 1142961, 3625907, 44063475 ####[address] [address] MCHC (RBC) [Mass/Vol] 33.3 g/dL Normal 31.4-36.0 Rem isol [facility] Comment on above: Performed By: #### 1 7670197, 2760621, 2418568, 9143244, 7604141, 11173526 ####[place] [address]757 MCV (RBC) [Entitic vol] 94.1 fL Normal 80.0-100.0 [facility] Comment on above: Performed By: #### 1 3189537, 7486757, 4371686, 5006595, 0344475, 24960353 ####[address] [address] Monocytes (Bld) [#/Vol] 0.6 E9/L Normal 0.2-1.0 [facility] Comment on above: Performed By: #### 1 8415706, 6502695, 0078756, 1471921, 3215550, 20873248 ####[address] [address] Neutrophils (Bld) [#/Vol] 6.8 E9/L Normal 2.0-7.5 [facility] Comment on above: Performed By: #### 1 4648275, 8045481, 4742235, 4277402, 8767969, 69115142 ####[address] [address] Neutrophils/100 WBC (Bld) 59.6 % Normal 36.0-75.0 [facility] Comment on above: Performed By: #### 1 3132886, 5880702, 1504479, 2554722, 0294753, 61192591 ####[place] [address] Platelet mean volume (Bld) [Entitic vol] 9.2 fL Normal 6.4-10.8 [facility] Comment on above: Performed By: #### 1 2204041, 8620408, 5938344, 1265444, 5044929, 77755163 ####[place] [address]757 Platelets (Bld) [#/Vol] 271.0 E9/L Normal 150.0-500.0 [facility] Comment on above: Performed By: #### 1 7204740, 3983840, 7126161, 7166124, 4927562, 23268858 ####[place] [address]757 RBC (Bld) [#/Vol] 4.4 E12/L Normal 4.3-5.9 [facility] Comment on above: Performed By: #### 1 1522995, 7236681, 4926233, 0943894, 1373570, 39503444 ####[address] [address] WBC corrected for nucl RBC Auto (Bld) [#/Vol] 11.4 E9/L High 4.0-11.0 [facility] Comment on above: Performed By: #### 1 3420111, 0333246, 7196853, 1300310, 2557940, 47538105 ####[place] [address] CHEMISTRYOrdered By: SYSTEM SYSTEM on 05-31-2023 Albumin/Globulin [...] - 20 [facility] COAGULATIONOrdered By: Zoë Isiah on 05-31-2023 aPTT Coag (PPP) [Time] 33.3 s Normal 25.1 - 36.5 second(s) [facility] Auto Coag Comment on above: Interpretive Data: [...] the same coagulation reagent and instrumentation as [facility]. Currently there are no coagulation studies available worldwide for children to 14 days, and no normal ranges. Heparin therapeutic range (represented by Anti-Factor Xa activity of 0.2 - 0.4 U/mL) corresponds to PTT of 56.6 - 109.0 sec. PT Coag (PPP) [Time] 10.8 s Normal 9.4 - 1 2.5 second(s) [facility] Auto Coag Comment on above: Interpretive Data: [...] were obtained from a study by Chidi Southbridge, et al. prepared from 1437 samples obtained at 7 different centers using the same coagulation reagent and instrumentation as [facility]. Currently there are no coagulation studies available worldwide for children to 14 days, and no normal ranges. Consent for Treatmenton Consent for Treatment [id number] IFF Normal [facility] Discharge Instructionson Discharge Instructions [id number] TIFF Normal [facility] ED Clinical Summaryon 2023 ED Clinical Summary Normal [facility] ED Patient Education Noteon 05-31-2023 ED Patient Education Note Normal [facility] ED Patient Summaryon 024 ED Patient Summary Normal [facility] HEMATOLOGYOrdered By: SYSTEM SYSTEM on 05-31-2023 Monocytes/100 WBC (Bld) 5.7 % Normal 4.0 - 14.0 % [facility] Hep Func PanelOrdered By: [facility] SYSTEM on 05-31-2023 Albumin [Mass/Vol] 4.1 g/dL Normal 3.3-5.0 [facility] Comment on above: Performed By: #### 1 9400341, 6268011, 3960797, 4464552, 8813711, 96404057 ####[facility] [address] [place] [address] Bilirubin [Mass/Vol] 0.4 mg/dL Normal 0.0-1.1 [facility] Comment on above: Performed By: #### 1 9297193, 5450007, 5612765, 5358353, 8134148, 41054439 ####[facility] [address] [place] [address] Bilirubin.direct [Mass/Vol] 0.1 mg/dL Normal 0.0-0.4 [facility] Comment on above: Performed By: #### 1 9862073, 7407419, 6346321, 9362863, 1644780, 03725263 ####[facility] [address] [place] 3[address]357 Bilirubin.indirect [Mass or moles/Vol] 0.3 mg/dL Normal 0.1-0.9 [facility] Comment on above: Performed By: #### 1 7730761, 0453132, 9228498, 2816946, 8429292, 32237763 ####[place] [address] [place] [address] Globulin (S) [Mass/Vol] 3.1 g/dL Normal 1.4-4.0 [facility] Comment on above: Performed By: #### 1 5454738, 6117589, 4248906, 3029990, 7855050, 09851485 ####[place] [address] [place] [address] Protein [Mass/Vol] 7.2 g/dL Normal 6.0-7.8 [facility] Comment on above: Performed By: #### 1 3118773, 4812134, 1912493, 6218564, 7286181, 29313405 ####[address] [address] Hep Func Panelon 05-31-2023 Albumin/Globulin (S) [Mass conc ratio] 1.3 Normal 1.1-2.2 [facility] Comment on above: Performed By: #### 1 7712750, 4410285, 7311152, 2617720, 5138794, 42868635 ####[place] [address] [place] [address] ALP [Catalytic activity/Vol] 72 Int._Unit/L Normal 21-98 [facility] Comment on above: Performed By: #### 1 8282851, 1316215, 9418373, 5242250, 6538825, 67961243 ####[place] [address] [place] [address] ALT No additional P-5'-P [Catalytic activity/Vol] 13 Int._Unit/L Normal 6-46 [facility] Comment on above: Performed By: #### 1 0357648, 1694236, 1094480, 7302133, 5779900, 42645647 ####[facility] [address] [place] [address] AST [Catalytic activity/Vol] 14 Int._Unit/L Normal 5-43 [facility] Comment on above: Performed By: #### 1 3837566, 3700510, 4184176, 3116604, 3422789, 23830382 ####[facility] [address] [place] [address] Lipase LevelOrdered By: SYST EM SYSTEM on 05-31-2023 Lipase [Catalytic activity/Vol] 10 U/L Low 13-58 [facility] Comment on above: Performed By: #### 1 2500742, 3795721, 9757360, 6036798, 4829296, 16111232 ####[facility] [address] [place] [address] PT & PTTon 05-31-2023 aPTT Coag (PPP) [Time] 33.3 second(s) Normal 25.1-36.5 [facility] Comment on above: Result Comment: Para meter [...] the same coagulation reagent and instrumentation as [facility]. Currently there are no coagulation studies available worldwide for children to 14 days, and no normal ranges. Heparin therapeutic range (represented by Anti-Factor Xa activity of 0.2 - 0.4 U/mL) corresponds to PTT of 56.6 - 109.0 sec. Performed By: #### 1 3173431, 1914457, 2985313, 7901179, 0790507, 90641751 ####[facility] [address] [place] [address] PT Coag (PPP) [Time] 10.8 second(s) Normal 9.4-12.5 [facility] Comment on above: Result Comment: 15 d [...] the same coagulation reagent and instrumentation as [facility]. Currently there are no coagulation studies available worldwide for children to 14 days, and no normal ranges. Performed By: #### 1 1178452, 0488742, 9012250, 7342255, 9972836, 83382223 ####[facility] [address] [place] [address] PT & PTTOrdered By: Zoë lucero on 05-31-2023 INR Coag (PPP) [Relative time] 0.96 {INR} Invalid Interpretation Code [facility] Auto Coag Comment on above: Interpretive Data: [...] 3.0 ? 4.5 Performed By: #### 1 7508941, 8245889, 6840688, 4527980, 2762495, 74397314 ####[facility] [address] [place] [address] UA With Cult Reflexon 2023 Bacteria LM Ql (Urine sed) TRACE Normal Trace [facility] Comment on above: Performed By: #### 1 6021207 ####[facility] [address] [place] [address] Bilirubin Ql (U) Negative Normal Negative [facility] Comment on above: Performed By: #### 1 6276454 ####[address] [address] Clarity (U) CLOUDY Abnormal Clear [facility] Comment on above: Performed By: #### 1 7092046 ####[address] [address] Color (U) YELLOW Normal Yellow [facility] Comment on above: Performed By: #### 1 1858686 ####[address] [address] Crystals LM Ql (Urine sed) Present Normal [facility] Comment on above: Performed By: #### 1 0629423 ####[address] [address] Epithelial cells.squamous LM.HPF (Urine sed) [#/Area] 0-2 Normal 0-2 [facility] Comment on above: Performed By: #### 1 9432365 ####[address] [address] Glucose Test strip (U) [Mass/Vol] Negative Normal Negative [facility] Comment on above: Performed By: #### 1 4691975 ####[facility] [address] [place] [address] Hemoglobin Ql (U) Negative Normal Negative [facility] Comment on above: Performed By: #### 1 6434876 ####[facility] [address] [place] [address] Ketones (U) [Mass/Vol] Negative Normal Negative [facility] Comment on above: Performed By: #### 1 4128493 ####[address] [address] [place].plasma/[place] .RBC (Bld) [Mass ratio] 0-3 Normal 0-3 [facility] Comment on above: Performed By: #### 1 8607472 ####[address] [address] Nitrite Ql (U) Negative Normal Negative [facility] Comment on above: Performed By: #### 1 4735800 ####[address] [address] pH (U) 8.0 [pH] Invalid Interpretation Code 5.0-9.0 [facility] Comment on above: Performed By: #### 1 0596494 ####[address] [address] Protein (U) [Mass/Vol] Negative Normal Negative [facility] Comment on above: Performed By: #### 1 3590429 ####[address] [address] Specific gravity (U) [Rel density] 1.015 Invalid Interpretation Code 1.005-1.030 [facility] Comment on above: Performed By: #### 1 5867738 ####[address] [address] Type of Urine collection method Clean Catch Normal [facility] Comment on above: Performed By: #### 1 0947564 ####[address] [address] Urobilinogen Qn (U) 0.2 {Jan'U}/dL Normal 0.0-1.0 [facility] Comment on above: Performed By: #### 1 2812801 ####[address] [address] WBC Auto Ql (U) Negative Normal Negative [facility] Comment on above: Performed By: #### 1 0495732 ####[address] [address] WBC LM.HPF (Urine sed) [#/Area] 0-5 Normal 0-5 [facility] Comment on above: Performed By: #### 1 1347201 ####[address] [address] URINALYSISOrdered By: Zoë gordon on 05-31-2023 Bacteria [...] [#/Area] 0-2 /HPF Normal 0-2/HPF [facility] UA Aut o SS Glucose Test strip (U) [Mass/Vol] Negative (05/31/23 4:53 PM) Normal Negative [facility] UA Auto SS Hemoglobin Ql (U) Negative (05/31/23 4:53 PM) Normal Negative [facility] UA Auto SS Ketones (U) [Mass/Vol] Negative (05/31/23 4:53 PM) Normal Negative [facility] UA Auto SS [place].plasma/[place] .RBC (Bld) [Mass ratio] 0-3 /HPF Normal 0-3/HPF [...] Desc Clean Catch (05/31/23 4:53 PM) Normal [facility] UA Auto SS Urobilinogen Qn (U) 0.3012500 {Jan'U}/dL Normal 0.0 - 1.0 EU/dL [facility] UA Auto SS WBC Auto Ql (U) Negative (05/31/23 4:53 PM) Normal Negative [facility] UA Auto SS WBC LM.HPF (Urine sed) [#/Area] 0-5 /HPF Normal 0-5/HPF [facility] UA Auto SS eGFROrdered By: KRYSTAL Nguyen on 05-31-2023 eGFR 108 mL/min/1.73 m2 Normal >=59 [facility] Comment on above: Order Comment: Order added by Discern Expert. Performed By: #### 1 0255285, 7251468, 9846830, 7020110, 3080144, 26652696 ####[facility] [address] [place] [address] ED Note-Physicianon 05-27-19 ED Note-Physician Normal [facility] Comment on above: Result Comment: Elec tronically Signed By: Susu Lamar PA-C\.br\Date and Time Signed: 05/26/23 21:33 EST\.br\Electronically Co-Signed By: Pedro Pablo Fletcher DO\.br\Date and Time Co-Signed: 05/27/23 00:01 EST Consent for Treatmenton Consent for Treatment [id number] IFF Normal [facility] ED Clinical Summaryon 2023 ED Clinical Summary Normal Tommy [facility] ED Patient Education Noteon 05-26-2023 ED Patient Education Note Normal [facility] ED Patient Summaryon 024 ED Patient Summary Normal [facility] UA With Cult Reflexon 2023 Bilirubin Ql (U) Negative Normal Negative [facility] Comment on above: Performed By: #### 1 1559700 ####[facility] [address] [place] [address] Clarity (U) CLEAR Normal Clear [facility] Comment on above: Performed By: #### 1 5852743 ####[facility] [address] [place] [address] Color (U) YELLOW Normal Yellow [facility] Comment on above: Performed By: #### 1 8284328 ####[facility] [address] [place] [address] Epithelial cells.squamous LM.HPF (Urine sed) [#/Area] 0-2 Normal 0-2 [facility] Comment on above: Performed By: #### 1 9308470 ####[facility] [address] [place] [address] Glucose Test strip (U) [Mass/Vol] Negative Normal Negative [facility] Comment on above: Performed By: #### 1 7820123 ####[address] [address] Hemoglobin Ql (U) Negative Normal Negative [facility] Comment on above: Performed By: #### 1 3814871 ####[address] [address] Ketones (U) [Mass/Vol] Negative Normal Negative [facility] Comment on above: Performed By: #### 1 8603560 ####[address] [address] [place].plasma/[place] .RBC (Bld) [Mass ratio] 0-3 Normal 0-3 [facility] Comment on above: Performed By: #### 1 4430550 ####[facility] [address] [place] [address] Nitrite Ql (U) Negative Normal Negative [facility] Comment on above: Performed By: #### 1 0474119 ####[address] [address] pH (U) 6.5 [pH] Invalid Interpretation Code 5.0-9.0 [facility] Comment on above: Performed By: #### 1 1475751 ####[address] [address] Protein (U) [Mass/Vol] Negative Normal Negative [facility] Comment on above: Performed By: #### 1 9027831 ####[facility] [address] [place] [address] Specific gravity (U) [Rel density] 1.020 Invalid Interpretation Code 1.005-1.030 [facility] Comment on above: Performed By: #### 1 3836428 ####[facility] [address] [place] [address] Type of Urine collection method Clean Catch Normal [facility] Comment on above: Performed By: #### 1 7605299 ####[facility] [address] [place] [address] Urobilinogen Qn (U) 0.2 {Jan'U}/dL Normal 0.0-1.0 [facility] Comment on above: Performed By: #### 1 4670975 ####[facility] [address] [place] [address] WBC Auto Ql (U) Negative Normal Negative [facility] Comment on above: Performed By: #### 1 [id number] ####[facility] [address] [place] [address] WBC LM.HPF (Urine sed) [#/Area] 0-5 Normal 0-5 [facility] Comment on above: Performed By: #### 1 [id number] ####[facility] [address] [place] [address] URINALYSISOrdered By: Alfonso Hernandez on 05-26-2023 Bilirubin Ql (U) Negative (05/26/23 8:20 PM) Normal Negative [facility] UA Auto SS Clarity (U) Clear (05/26/23 8:20 PM) Normal Clear [facility] UA Auto SS Color (U) Yellow (05/26/23 8:20 PM) Normal Yellow [facility] UA Auto SS Epithelial cells.squamous LM.HPF (Urine sed) [#/Area] 0-2 /HPF Normal 0-2/HPF [facility] UA Aut o SS Glucose Test strip (U) [Mass/Vol] Negative (05/26/23 8:20 PM) Normal Negative [facility] UA Auto SS Hemoglobin Ql (U) Negative (05/26/23 8:20 PM) Normal Negative [facility] UA Auto SS Ketones (U) [Mass/Vol] Negative (05/26/23 8:20 PM) Normal Negative [facility] UA Auto SS [place].plasma/[place] .RBC (Bld) [Mass ratio] 0-3 /HPF Normal 0-3/HPF [facility] UA Auto SS Nitrite Ql (U) Negative (05/26/23 8:20 PM) Normal Negative [facility] UA Auto SS pH (U) 6.5 *NA* (05/26/23 8:20 PM) Invalid Interpretation Code 5.0 - 9.0 [facility] UA Auto SS Protein (U) [Mass/Vol] Negative (05/26/23 8:20 PM) Normal Negative [facility] UA Auto SS Specific gravity (U) [Rel density] 1.020 *NA* (05/26/23 8:20 PM) Invalid Interpretation Code 1.005 - 1.030 [facility] UA Auto SS UA Spec Desc Clean Catch (05/26/23 8:20 PM) Normal [facility] UA Auto SS Urobilinogen Qn (U) 0.4477584 {Jan'U}/dL Normal 0.0 - 1.0 EU/dL [facility] UA Auto SS WBC Auto Ql (U) Negative (05/26/23 8:20 PM) Normal Negative [facility] UA Auto SS WBC LM.HPF (Urine sed) [#/Area] 0-5 /HPF Normal 0-5/HPF [facility] UA Auto SS ED Note-Physicianon 05-25-19 ED Note-Physician Normal [facility] Comment on above: Result Comment: Elec tronically Signed By: Landon Tidwell PA-C\.br\Date and Time Signed: 05/24/23 23:15 EST\.br\Electronically Co-Signed By: Pedro Pablo Fletcher DO\.br\Date and Time Co-Signed: 05/25/23 01:59 EST XR Spine Lumbosacral 2 or 3 Viewson 05-25-2023 XR Spine Lumbosacral 2 or 3 Views Normal [facility] Consent for Treatmenton Consent for Treatment [id number]#1.00T IFF Normal [facility] Discharge Instructionson Discharge Instructions [id number]#1.00TI FF Normal [facility] ED Clinical Summaryon 2023 ED Clinical Summary Normal [facility] ED Patient Education Noteon 05-24-2023 ED Patient Education Note Normal [facility] ED Patient Summaryon 024 ED Patient Summary Normal [facility] Hand / UE Inj/Asp: R thumb C MCon 05-20-2023 Belkis Nguyen Ciabernardadeyanira, DO 05/20/2023 9:07 AM Hand / UE [...] to verify the correct patient, procedure, equipment, sales support rep and site/side marked as required. Patient was prepped and draped in the usual sterile fashion. [facility] Work Phone: [facility] Work Phone: XR WRIST RIGHT 3+ VIEWSon 02 -26-2024 XR WRIST RIGHT 3+ VIEWS Interpreted By: Belkis Hernandez, STUDY: XR WRIST RIGHT 3+ VIEWS; ; 05/20/2023 8:00 am INDICATION: Signs/Symptoms:Pain. ACCESSION NUMBER(S): [id number] ORDERING CLINICIAN: BELKIS HERNANDEZ FINDINGS: X-rays of the right wrist show no acute fracture or dislocation. Right thumb [facility] arthritis. Signed by: Belkis Hernandez 05/20/2023 3:12 PM Dictation workstation: [id number] [facility] Ambulatory ED Note-Physicianon 05-17-19 ED Note-Physician Normal [facility] Comment on above: Result Comment: Elec tronically Signed By: Robert Taylor PA-C\.br\Date and Time Signed: 05/14/23 11:56 EST\.br\Electronically Co-Signed By: Jorge Mcintosh DO\.br\Date and Time Co-Signed: 05/17/23 08:07 EST Skilled Nursing Documentson 05-17-2023 Skilled Nursing Documents [id number]#1.0 [facility] Consent for Treatmenton 04-26 Consent for Treatment [id number]#1.00T IFF Normal [facility] Discharge Instructionson Discharge Instructions [id number]#1.00T IFF Normal [facility] ED Clinical Summaryon 2023 ED Clinical Summary Normal [facility] ED Note-Physicianon 05-16-19 ED Note-Physician Normal [facility] Comment on above: Result Comment: Elec tronically Signed By: Robert Taylor PA-C\.br\Date and Time Signed: 05/16/23 16:54 EST\.br\Electronically Co-Signed By: Nikhil Tubbs DO\.br\Date and Time Co-Signed: 05/16/23 17:00 EST ED Patient Education Noteon 05-16-2023 ED Patient Education Note Normal [facility] ED Patient Summaryon 024 ED Patient Summary Normal [facility] Consent for Treatmenton 04-26 Consent for Treatment [id number]#1.00T IFF Normal [facility] Discharge Instructionson Discharge Instructions [id number]#1.0 0TIFF Normal [facility] ED Clinical Summaryon 2023 ED Clinical Summary Normal [facility] ED Patient Education Noteon 05-14-2023 ED Patient Education Note Normal [facility] ED Patient Summaryon ED Patient Summary Normal [facility] ED Note-Physicianon 05-13-19 ED Note-Physician Normal [facility] Comment on above: Result Comment: Elec tronically Signed By: Landon Tidwell PA-C\.br\Date and Time Signed: 05/11/23 17:24 EST\.br\Electronically Co-Signed By: Belia Mcintosh DO.br\Date and Time Co-Signed: 05/13/23 07:06 EST Consent for Treatmenton 04-25 Consent for Treatment [id number]#1.00T IFF Normal [facility] Discharge Instructionson Discharge Instructions [id number]#1.00 TIFF Normal [facility] ED Clinical Summaryon 2023 ED Clinical Summary Normal [facility] ED Note-Physicianon 05-12-19 ED Note-Physician Normal [facility] Comment on above: Result Comment: Elec tronically Signed By: Nikhil Tubbs DO.br\Date and Time Signed: 05/12/23 11:06 EST ED Patient Education Noteon 05-12-2023 ED Patient Education Note Normal [facility] ED Patient Summaryon 024 ED Patient Summary Normal [facility] Consent for Treatmenton 04-25 Consent for Treatment [id number]#1.00T IFF Normal [facility] Discharge Instructionson Discharge Instructions [id number]#1.00T IFF Normal [facility] ED Clinical Summaryon 2023 ED Clinical Summary Normal Osbaldo martinez [facility] ED Patient Education Noteon 05-11-2023 ED Patient Education Note Normal [facility] ED Patient Summaryon 024 ED Patient Summary Normal [facility] XR Hand 3+ Views Righton XR Hand 3+ Views Right Normal Jose kingston [facility] XR Wrist 3+ Views Righton XR Wrist 3+ Views Right Normal [facility] ED Note-Physicianon 05-09-19 ED Note-Physician Normal [facility] Comment on above: Result Comment: Elec tronically Signed By: Landon Tidwell PA-C\.br\Date and Time Signed: 05/08/23 14:03 EST\.br\Electronically Co-Signed By: Balbina Bryant M.D.\.br\Date and Time Co-Signed: 05/09/23 07:48 EST BMPon 05-08-2023 Anion gap [Moles/Vol] 12 mmol/L Normal 6-16 [facility] Comment on above: Performed By: #### 1 [id number], 7368901, 5916375, 0770153, 3528765 ####[facility] [address] [place] [address] BUN/Creat Ratio 21 No Units High 10-20 [facility] Comment on above: Performed By: #### 1 2861327, 6691818, 5458521, 9594967, 7171506 ####[facility] [address] [place] [address] Calcium [Mass/Vol] 8.4 mg/dL Low 8.9-11.1 [facility] Comment on above: Performed By: #### 1 1099531, 6287687, 4110855, 5187993, 5696282 ####[facility] [address] [place] [address] Chloride [Moles/Vol] 105 mmol/L Normal 101-111 [facility] Comment on above: Performed By: #### 1 7413879, 0496426, 1919786, 3275245, 8723228 ####[facility] [address] [place] [address] CO2 [Moles/Vol] 24 mmol/L Normal 21-31 [facility] Comment on above: Performed By: #### 1 4125752, 2798006, 0436061, 5735400, 1901526 ####[facility] [address] [facility] [place] [address] Creatinine [Mass/Vol] 0.7 mg/dL Normal 0.5-1.3 [facility] Comment on above: Performed By: #### 1 9747463, 5602282, 1783739, 8941304, 3444357 ####[facility] [address] [facility] [place] [address] Glucose [Mass/Vol] 107 mg/dL Normal 55-199 [facility] Comment on above: Performed By: #### 1 7281294, 2105061, 1255549, 3412643, 5707982 ####[facility] [address] [place] [place] [address] Potassium [Moles/Vol] 4.1 mmol/L Normal 3.5-5.3 [facility] Comment on above: Performed By: #### 1 4162634, 8949675, 3329066, 0555207, 1583868 ####[facility] [address] [place] [place] [address] Sodium [Moles/Vol] 137 mmol/L Normal 135-145 [facility] Comment on above: Performed By: #### 1 3388227, 8032378, 7930427, 4102018, 9656685 ####[facility] [address] [place] [address] Urea nitrogen [Mass/Vol] 15 mg/dL Normal 5-21 [facility] Comment on above: Performed By: #### 1 1690975, 9250783, 6193115, 7629655, 9263720 ####[address] [place] [address] CBC w/ Auto Diffon 4 Basophil Absolute 0.1 E9/L Normal 0.0-0.2 [facility] Comment on above: Performed By: #### 1 2176358, 5632889, 9499837, 4489604, 1133097 ####[address] [address] Basophils/100 WBC (Bld) 0.8 % Normal 0.0-2.0 [facility] Comment on above: Performed By: #### 1 0660415, 6124528, 4154352, 1099687, 9623387 ####[address] [address] Eos Absolute 0.2 E9/L Normal 0.0-0.5 [facility] Comment on above: Performed By: #### 1 4704864, 5402306, 6089288, 6422184, 7326195 ####[address] [address] Eosinophils/100 WBC (Bld) 2.0 % Normal 0.0-8.0 [facility] Comment on above: Performed By: #### 1 1268350, 6356818, 1362518, 3549411, 4609578 ####[address] [address] Erythrocyte distribution width (RBC) [Ratio] 13.1 % Normal 10.9-14.2 [facility] Comment on above: Performed By: #### 1 4632032, 7718886, 1163855, 4605266, 5909505 ####[address] [address] Hematocrit (Bld) [Volume fraction] 44.0 % Normal 34.0-46.0 [facility] Comment on above: Performed By: #### 1 8894779, 4427248, 0122059, 4398953, 8749611 ####[address] [place] [address] Hemoglobin (Bld) [Mass/Vol] 15.0 g/dL Normal 12.0-16.0 [facility] Comment on above: Performed By: #### 1 1845784, 4760109, 8045483, 6952393, 4735413 ####[address] [address] Lymph Absolute 3.1 E9/L Normal 1.0-4.0 [facility] Comment on above: Performed By: #### 1 9604704, 0741453, 5088425, 8162674, 2037616 ####[address] Lymphocytes/100 WBC (Bld) 35.0 % Normal 14.0-50.0 [facility] Comment on above: Performed By: #### 1 2915115, 5437283, 4067310, 7380124, 4551906 ####[address] MCH (RBC) [Entitic mass] 32.2 pg Normal 27.0-34.0 [facility] Comment on above: Performed By: #### 1 7795601, 7058189, 3729369, 6507416, 8362370 ####[address] [address] MCHC (RBC) [Mass/Vol] 34.3 g/dL Normal 31.4-36.0 [facility] Comment on above: Performed By: #### 1 2003297, 4415263, 3585336, 5555363, 0051927 ####[address] [address] MCV (RBC) [Entitic vol] 94.0 fL Normal 80.0-100.0 [facility] Comment on above: Performed By: #### 1 8043658, 3343899, 9027724, 6240472, 6817239 ####[address] [address] [place] Absolute 0.6 E9/L Normal 0.2-1.0 [facility] Comment on above: Performed By: #### 1 1836056, 9953149, 0995923, 6573657, 7721764 ####[facility] [address] [place] [address] Monocytes/100 WBC (Bld) 6.9 % Normal 4.0-14.0 [facility] Comment on above: Performed By: #### 1 1928348, 9528624, 7547551, 9777227, 0069741 ####[facility] [address] [place] [address] Neutro Absolute 5.0 E9/L Normal 2.0-7.5 [facility] Comment on above: Performed By: #### 1 1150925, 7576989, 9402271, 2003250, 9823425 ####[address] [address] Neutro Auto 55.3 % Normal 36.0-75.0 [facility] Comment on above: Performed By: #### 1 1423017, 0324225, 8870502, 6595870, 6028337 ####[address] [place] [address] Platelet 279.0 E9/L Normal 150.0-500.0 [facility] Comment on above: Performed By: #### 1 0168710, 3768274, 8656236, 3137979, 0468815 ####[facility] [address] [place] [address] Platelet mean volume (Bld) [Entitic vol] 9.1 fL Normal 6.4-10.8 [facility] Comment on above: Performed By: #### 1 8904773, 0771752, 2217611, 9270034, 0567951 ####[facility] [address] [place] [address] RBC 4.7 E12/L Normal 4.3-5.9 [facility] Comment on above: Performed By: #### 1 1742390, 9925935, 6309666, 5470087, 3200606 ####[facility] [address] [place] [address] WBC 9.0 E9/L Normal 4.0-11.0 [facility] Comment on above: Performed By: #### 1 7931396, 9430304, 3581260, 3009057, 4454244 ####[facility] [address] [place] [address] CHEMISTRYOrdered By: SYSTEM SYSTEM on 05-08-2023 Albumin [Mass/Vol] 4.1 g/dL Normal 3.3 - 5.0 gm/dL [facility] Chem Albumin/Globulin [Mass ratio] 1.3 {ratio} Normal 1.1 - 2.2 [facility] Alk Phos 80 [iU]/d Normal 21 - 98 Int._Unit/L [facility] ALT 57 [iU]/d High 6 - 46 Int._Unit/L [facility] Anion gap [Moles/Vol] 12 mmol/L Normal 6 - 16 mEq/L R emisol Chem AST 27 [iU]/d Normal 5 - 43 Int._Unit/L [facility] Bili Direct 0.1 mg/dL Normal 0.0 - 0.4 mg/dL [facility] Bili Indirect 0.4 mg/dL Normal 0.1 - 0.9 mg/dL [facility] Bili Total 0.5 mg/dL Normal 0.0 - 1.1 mg/dL [facility] Calcium [Mass/Vol] 8.4 mg/dL Low 8.9 - 11. 1 mg/dL [facility] Chloride [Moles/Vol] 105 mmol/L Normal 101 - 1 11 mmol/L [facility] CO2 [Moles/Vol] 24 mmol/L Normal 21 - 31 mmol/L [facility] Creatinine [Mass/Vol] 0.7 mg/dL Normal 0.5 - 1.3 mg/dL [facility] eGFR 108 mL/min/1.73 m2 Normal >=59mL/mi n/1 .73 m2 [facility] Globulin (S) [Mass/Vol] 3.2 g/dL Normal 1.4 - 4.0 gm/dL [facility] Glucose [Mass/Vol] 107 mg/dL Normal 55 - 199 mg/dL [facility] Lipase Lvl 26 unit/L Normal 13 - 58 unit/L [facility] Potassium [Moles/Vol] 4.1 mmol/L Normal 3.5 - 5.3 mmol/L [facility] Protein [Mass/Vol] 7.3 g/dL Normal 6.0 - 7.8 gm/dL [facility] Sodium [Moles/Vol] 137 mmol/L Normal 135 - 145 mmol/L [facility] Urea nitrogen [Mass/Vol] 15 mg/dL Normal 5 - 21 mg/dL [facility] Urea nitrogen/Creatinine [Mass ratio] 21 mg/mg High 10 - 20 [facility] Consent for Treatmenton 04-25 Consent for Treatment [id number]#1.00T IFF Normal [facility] Discharge Instructionson Discharge Instructions [id number]#1.00 TIFF Normal [facility] ED Clinical Summaryon 2023 ED Clinical Summary Normal [facility] ED Patient Education Noteon 05-08-2023 ED Patient Education Note Normal [facility] ED Patient Summaryon 024 ED Patient Summary Normal [facility] HEMATOLOGYOrdered By: SYSTEM SYSTEM on 05-08-2023 Basophil Absolute 0.1 E9/L Normal 0.0 - 0.2 E9/L Remisol Heme Basophils/100 WBC (Bld) 0.8 % Normal 0.0 - 2.0 % Remisol Heme Eos Absolute 0.2 E9/L Normal 0.0 - 0.5 E9/L Rem[facility] Heme Eosinophils/100 WBC (Bld) 2.0 % Normal 0.0 - 8.0 % Remisol Heme Erythrocyte distribution width (RBC) [Ratio] 13.1 % Normal 10.9 - 14.2 % Rem[facility] Heme Hematocrit (Bld) [Volume fraction] 44.0 % Normal 34.0 - 46.0 % Rem[facility] Heme Hemoglobin (Bld) [Mass/Vol] 15.0 g/dL Normal 12.0 - 16.0 gm/dL [facility] Heme Lymph Absolute 3.1 E9/L Normal 1.0 - 4.0 E9/L Rem[facility] Heme Lymphocytes/100 WBC (Bld) 35.0 % Normal 14.0 - 50.0 % Remisol Heme MCH (RBC) [Entitic mass] 32.2 pg Normal 27.0 - 34.0 pg Remisol Heme MCHC (RBC) [Mass/Vol] 34.3 g/dL Normal 31.4 - 36.0 gm/dL Remisol Heme MCV (RBC) [Entitic vol] 94.0 fL Normal 80.0 - 100.0 fL Remisol Heme [place] Absolute 0.6 E9/L Normal 0.2 - 1.0 E9/L [facility] Heme Monocytes/100 WBC (Bld) 6.9 % Normal 4.0 - 14.0 % Rem[facility] Heme Neutro Absolute 5.0 E9/L Normal 2.0 - 7.5 E9/L [facility] Neutro Auto 55.3 % Normal 36.0 - 75.0 % [facility] Platelet 279.0 E9/L Normal 150.0 - 500.0 E9/L [facility]e Platelet mean volume (Bld) [Entitic vol] 9.1 fL Normal 6.4 - 10.8 fL Rem[facility] Heme RBC 4.7 E12/L Normal 4.3 - 5.9 E12/L [facility] Heme WBC 9.0 E9/L Normal 4.0 - 11.0 E9/L [facility] Heme Hep Func Panelon 05-08-2023 Albumin [Mass/Vol] 4.1 g/dL Normal 3.3-5.0 [facility] Comment on above: Performed By: #### 1 9028927, 4302612, 7444916, 6105394, 6215850 ####[facility] [address] [place] [address] Albumin/Globulin [Mass ratio] 1.3 {ratio} Normal 1.1-2.2 [facility] Comment on above: Performed By: #### 1 3285776, 4217700, 4919913, 7582493, 3795896 ####[facility] [address] [place] [address] Alk Phos 80 Int._Unit/L Normal 21-98 [facility] Comment on above: Performed By: #### 1 2393436, 2176922, 4223890, 2472051, 3134691 ####[facility] [address] [place] [address] ALT 57 Int._Unit/L High 6-46 [facility] Comment on above: Performed By: #### 1 7929492, 1935038, 7805919, 2351476, 8750818 ####[address] [place] [address] AST 27 Int._Unit/L Normal 5-43 [facility] Comment on above: Performed By: #### 1 1768338, 3817585, 9483891, 6557855, 7951766 ####[address] [address] Bili Direct 0.1 mg/dL Normal 0.0-0.4 [facility] Comment on above: Performed By: #### 1 6926574, 7322342, 7307601, 5081915, 1946862 ####[facility] [address] [place] [address] Bili Indirect 0.4 mg/dL Normal 0.1-0.9 [facility] Comment on above: Performed By: #### 1 1875946, 5473141, 6226128, 7001342, 3367459 ####[address] [address] Bili Total 0.5 mg/dL Normal 0.0-1.1 [facility] Comment on above: Performed By: #### 1 5771834, 5868306, 3045367, 0408246, 1457642 ####[address] [place] [address] Globulin (S) [Mass/Vol] 3.2 g/dL Normal 1.4-4.0 [facility] Comment on above: Performed By: #### 1 5052004, 3844303, 6872430, 3690533, 1551160 ####[address] [address] Protein [Mass/Vol] 7.3 g/dL Normal 6.0-7.8 [facility] Comment on above: Performed By: #### 1 4085351, 2859768, 3036110, 4365741, 5086218 ####[facility] [address] [place] [address] Lipase Levelon 05-08-2023 Lipase Lvl 26 unit/L Normal 13-58 [facility] Comment on above: Performed By: #### 1 2393665, 9144487, 8202729, 2267614, 9847681 ####[facility] [address] [place] [address] eGFRon 05-08-2023 eGFR 108 mL/min/1.73 m2 Normal >=59 [facility] Comment on above: Order Comment: Order added by Discern Expert. Performed By: #### 1 6037265, 2127113, 9961276, 1638901, 9186600 ####[facility] [address] [place] [address] Discharge Instructionson Discharge Instructions [id number]#1.00T IFF Normal [facility] ED Note-Physicianon 05-05-19 ED Note-Physician Normal [facility] Comment on above: Result Comment: Elec tronically Signed By: Landon Tidwell PA-C\.br\Date and Time Signed: 05/04/23 22:33 EST\.br\Electronically Co-Signed By: Pedro Pablo Fletcher DO\.br\Date and Time Co-Signed: 05/05/23 19:43 EST Consent for Treatmenton 04-25 Consent for Treatment [id number]#1.00T IFF Normal [facility] ED Clinical Summaryon 2023 ED Clinical Summary Normal Os[facility]do [facility] ED Note-Nursingon 05-04-2023 ED Note-Nursing Pt. refused staying for 30 minutes more for observation after receiving pain meds, said she always get immediately discharged after receiving the medications. Demanded leaving at this time. Normal [facility] ED Patient Education Noteon 05-04-2023 ED Patient Education Note Normal [facility] ED Patient Summaryon 024 ED Patient Summary Normal [facility] B hCG Qualon 04-30-2023 Beta HCG ( test) Ql Negative Normal [facility] Comment on above: Performed By: #### 2 3635790, 6040671, 1861880, 0345020, 2859792, 99086257, 6440463 ####[facility] [address] [place] [place] [address] BMPon 04-30-2023 Anion gap [Moles/Vol] 12 mmol/L Normal 6-16 [facility] Comment on above: Performed By: #### 2 4583032, 6905255, 6486035, 4966317, 5115799, 21623799, 4553615 ####[facility] [address] [place] [address] BUN/Creat Ratio 21 No Units High 10-20 [facility] Comment on above: Performed By: #### 2 4227474, 8831759, 0584297, 1276226, 2165057, 31164112, 3631516 ####[facility] [address] [place] [place] [address] Calcium [Mass/Vol] 8.6 mg/dL Low 8.9-11.1 [facility] Comment on above: Performed By: #### 2 7513315, 7661017, 9944537, 7543989, 2821268, 31451890, 0657729 ####[facility] [address] [place] [place] [address] Chloride [Moles/Vol] 106 mmol/L Normal 101-111 [facility] Comment on above: Performed By: #### 2 4013268, 0256651, 9733081, 5485441, 0792781, 81621616, 3435259 ####[facility] [address] [place] [place] [address] CO2 [Moles/Vol] 24 mmol/L Normal 21-31 [facility] Comment on above: Performed By: #### 2 4446489, 8923987, 7278448, 0557369, 5006689, 98242972, 6409313 ####[facility] [address] [place] [address] Creatinine [Mass/Vol] 0.7 mg/dL Normal 0.5-1.3 [facility] Comment on above: Performed By: #### 2 3193706, 9789029, 2964260, 9461292, 8158969, 20734914, 1620928 ####[facility] [address] [place] [address] Glucose [Mass/Vol] 83 mg/dL Normal 55-199 [facility] Comment on above: Performed By: #### 2 3350596, 1054549, 1400960, 5739663, 2319119, 01094222, 1378477 ####[facility] [address] [place] [address] Potassium [Moles/Vol] 4.1 mmol/L Normal 3.5-5.3 [facility] Comment on above: Performed By: #### 2 7932225, 5299620, 9471771, 8125106, 7093318, 92686249, 9103220 ####[facility] [address] [place] [address] Sodium [Moles/Vol] 138 mmol/L Normal 135-145 [facility] Comment on above: Performed By: #### 2 0207373, 4905556, 5646574, 1970184, 4731042, 10992557, [id number] ####[facility] [address] [place] [address] Urea nitrogen [Mass/Vol] 15 mg/dL Normal 5-21 [facility] Comment on above: Performed By: #### 2 9643772, 7899601, 7443655, 5250350, 6330642, 40452517, 7654122 ####[facility] [address] [place] [address] CBC w/ Auto Diffon 4 Basophil Absolute 0.0 E9/L Normal 0.0-0.2 [facility] Comment on above: Performed By: #### 2 6274120, 9563696, 0429536, 1385691, 9525854, 06890201, 3533548 ####[address] [address] Basophils/100 WBC (Bld) 0.6 % Normal 0.0-2.0 [facility] Comment on above: Performed By: #### 2 9171227, 4162009, 7811825, 1950910, 5650605, 08755510, 9584090 ####[place] 1222757 Eos Absolute 0.2 E9/L Normal 0.0-0.5 [facility] Comment on above: Performed By: #### 2 3176405, 2523251, 9349018, 0538996, 9515783, 39478716, 7011483 ####[address] [address] Eosinophils/100 WBC (Bld) 2.5 % Normal 0.0-8.0 [facility] Comment on above: Performed By: #### 2 9797533, 2382972, 6620915, 5741987, 0686985, 91446805, 0047721 ####[place] 1222757 Erythrocyte distribution width (RBC) [Ratio] 13.3 % Normal 10.9-14.2 [facility] Comment on above: Performed By: #### 2 1254764, 2750013, 5705300, 1615310, 1457545, 71403342, 2631874 ####[address] [address] Hematocrit (Bld) [Volume fraction] 43.0 % Normal 34.0-46.0 [facility] Comment on above: Performed By: #### 2 8804287, 4488263, 7943529, 1849014, 3945597, 20874312, 0905438 ####[facility] [address] [place] [address] Hemoglobin (Bld) [Mass/Vol] 14.3 g/dL Normal 12.0-16.0 [facility] Comment on above: Performed By: #### 2 7903207, 3125779, 0410303, 1838366, 4434236, 76452892, 9386258 ####[address] [address] Lymph Absolute 2.2 E9/L Normal 1.0-4.0 [facility] Comment on above: Performed By: #### 2 0064538, 4501108, 9697846, 3747330, 7928231, 14691186, 7537347 ####[address] [address] Lymphocytes/100 WBC (Bld) 26.7 % Normal 14.0-50.0 [facility] Comment on above: Performed By: #### 2 4655634, 9972612, 4916536, 8863908, 8592179, 86550288, 8864218 ####[address] [address] MCH (RBC) [Entitic mass] 31.7 pg Normal 27.0-34.0 [facility] Comment on above: Performed By: #### 2 7568511, 4684243, 8131408, 0276247, 8195627, 17320391, 8238407 ####[address] [address] MCHC (RBC) [Mass/Vol] 33.5 g/dL Normal 31.4-36.0 [facility] Comment on above: Performed By: #### 2 1829055, 0358898, 0979487, 7281697, 0455579, 05829621, 3627852 ####[address] [address] MCV (RBC) [Entitic vol] 94.6 fL Normal 80.0-100.0 [facility] Comment on above: Performed By: #### 2 8554294, 6625415, 0901252, 9654819, 5333014, 13237553, 8576823 ####[facility] [address] [place] [address] [place] Absolute 0.7 E9/L Normal 0.2-1.0 [facility] Comment on above: Performed By: #### 2 1922649, 0544134, 2464111, 7062353, 2035238, 57437287, 0743775 ####[address] [address] Monocytes/100 WBC (Bld) 8.4 % Normal 4.0-14.0 [facility] Comment on above: Performed By: #### 2 3933987, 0191375, 7634411, 1210285, 9277888, 83588801, 1065689 ####[address] [address] Neutro Absolute 5.0 E9/L Normal 2.0-7.5 [facility] Comment on above: Performed By: #### 2 3697070, 9860329, 4006837, 4306710, 4060065, 89030312, 9976026 ####[address] [address] Neutro Auto 61.8 % Normal 36.0-75.0 [facility] Comment on above: Performed By: #### 2 6476513, 0757064, 3611834, 7484597, 9573292, 06797505, 1602929 ####[address] [address] Platelet 303.0 E9/L Normal 150.0-500.0 [facility] Comment on above: Performed By: #### 2 4907318, 1205060, 3447909, 0623807, 0100089, 83532887, 3401645 ####[address] [address] Platelet mean volume (Bld) [Entitic vol] 9.1 fL Normal 6.4-10.8 [facility] Comment on above: Performed By: #### 2 4716493, 5610801, 7275277, 0005540, 9453671, 95248565, 7365813 ####[facility] [address] [place] [address] RBC 4.5 E12/L Normal 4.3-5.9 [facility] Comment on above: Performed By: #### 2 6164270, 2692052, 3076015, 0482763, 2984585, 77793480, 1611523 ####[facility] [address] [place] [address] WBC 8.1 E9/L Normal 4.0-11.0 [facility] Comment on above: Performed By: #### 2 3956003, 8864065, 3658440, 4094293, 8752824, 29953926, 1111931 ####[facility] [address] [place] [address] CT Abdomen/Pelvis w/ Contras ton 04-30-2023 CT Abdomen/Pelvis w/ Contrast Normal [facility] Consent for Treatmenton Consent for Treatment [id number]#1.00T IFF Normal [facility] Discharge Instructionson Discharge Instructions [id number]#1.00T IFF Normal [facility] ED Clinical Summaryon 2023 ED Clinical Summary Normal Osbaldo martinez [facility] ED Note-Physicianon 04-30-19 24 ED Note-Physician Normal [facility] Comment on above: Result Comment: Elec tronically Signed By: Elisa Sánchez DO.rufino\Date and Time Signed: 04/30/23 21:02 EST ED Patient Education Noteon 04-30-2023 ED Patient Education Note Normal [facility] ED Patient Summaryon 024 ED Patient Summary Normal [facility] Hep Func Panelon 04-30-2023 Albumin [Mass/Vol] 3.9 g/dL Normal 3.3-5.0 [facility] Comment on above: Performed By: #### 2 9512599, 3871752, 6640739, 2218802, 9412584, 22457540, 2089247 ####[facility] [address] [place] [address] Albumin/Globulin [Mass ratio] 1.3 {ratio} Normal 1.1-2.2 [facility] Comment on above: Performed By: #### 2 4063174, 1198025, 7948538, 3735883, 5927615, 81326756, 9417213 ####[facility] [address] [place] [address] Alk Phos 84 Int._Unit/L Normal 21-98 [facility] Comment on above: Performed By: #### 2 0257553, 0654530, 9813150, 1087224, 3872310, 32488058, 9732160 ####[facility] [address] [place] [address] ALT 118 Int._Unit/L High 6-46 [facility] Comment on above: Performed By: #### 2 0640142, 7169121, 3402064, 0434292, 8281432, 23665828, 4715402 ####[facility] [address] [place] [address] AST 83 Int._Unit/L High 5-43 [facility] Comment on above: Performed By: #### 2 8378910, 7964553, 8406807, 2016586, 9871250, 01956585, 9055857 ####[facility] [address] [place] [address] Bili Direct 0.1 mg/dL Normal 0.0-0.4 [facility] Comment on above: Performed By: #### 2 3166723, 8035276, 8988339, 6083932, 6131048, 62425034, 3165033 ####[facility] [address] [place] [address] Bili Indirect 0.2 mg/dL Normal 0.1-0.9 [facility] Comment on above: Performed By: #### 2 0410196, 9684944, 2436391, 1588656, 5497265, 69523946, 1847205 ####[facility] [address] [place] [address] Bili Total 0.3 mg/dL Normal 0.0-1.1 [facility] Comment on above: Performed By: #### 2 6676264, 3466497, 5339549, 8426194, 2373654, 15521731, 7566764 ####[address] [address] Globulin (S) [Mass/Vol] 3.0 g/dL Normal 1.4-4.0 [facility] Comment on above: Performed By: #### 2 2996524, 0224617, 1318258, 8319524, 3578569, 73543292, 6813355 ####[facility] [address] [place] [address] Protein [Mass/Vol] 6.9 g/dL Normal 6.0-7.8 [facility] Comment on above: Performed By: #### 2 5943609, 0645955, 5874498, 0060842, 2215296, 22863569, 2454723 ####[address] [address] Lactic Acidon 04-30-2023 Lactic Acid Lvl 1.3 mmol/L Normal 0.5-2.2 [facility] Comment on above: Performed By: #### 2 7286189, 3923170, 2426172, 1116886, 3606706, 11058141, 2083379 ####[facility] [address] [place] [address] Lipase Levelon 04-30-2023 Lipase Lvl 29 unit/L Normal 13-58 [facility] Comment on above: Performed By: #### 2 6977197, 7020906, 2589981, 3691322, 8454061, 65649158, 7962992 ####[facility] [address] [place] [address] MRI Cholangiogram Pancreatog abdulkadir (mrcp)on 04-30-2023 MRI Cholangiogram Pancreatography (mrcp) Normal [facility] RAD - MRI Screening Formon 0 04-30-2023 RAD - MRI Screening Form [id number]#1.00 TIFF Normal [facility] UA With Cult Reflexon 2023 Bacteria LM Ql (Urine sed) TRACE Normal Trace [facility] Comment on above: Performed By: #### 1 4750987 ####[facility] [address] [place] [address] Bilirubin Ql (U) Negative Normal Negative [facility] Comment on above: Performed By: #### 1 5701201 ####[facility] [address] [place] [address] Clarity (U) CLEAR Normal Clear [facility] Comment on above: Performed By: #### 1 2801341 ####[facility] [address] [place] [address] Color (U) YELLOW Normal Yellow [facility] Comment on above: Performed By: #### 1 2200070 ####[facility] [address] [place] [address] Epithelial cells.squamous LM.HPF (Urine sed) [#/Area] 5-8 Normal 0-2 [facility] Comment on above: Performed By: #### 1 4506088 ####[facility] [address] [place] [address] Glucose Test strip (U) [Mass/Vol] Negative Normal Negative [facility] Comment on above: Performed By: #### 1 5139498 ####[facility] [address] [place] [address] Hemoglobin Ql (U) Negative Normal Negative [facility] Comment on above: Performed By: #### 1 8451958 ####[place] [address] [place] [address] Ketones (U) [Mass/Vol] Negative Normal Negative [facility] Comment on above: Performed By: #### 1 1445462 ####[address] [address] [place].plasma/[place] .RBC (Bld) [Mass ratio] 0-3 Normal 0-3 [facility] Comment on above: Performed By: #### 1 9188687 ####[address] [address] Nitrite Ql (U) Negative Normal Negative [facility] Comment on above: Performed By: #### 1 1969897 ####[address] [address] pH (U) 5.5 [pH] Invalid Interpretation Code 5.0-9.0 [facility] Comment on above: Performed By: #### 1 8775565 ####[address] [address] Protein (U) [Mass/Vol] Negative Normal Negative [facility] Comment on above: Performed By: #### 1 5843375 ####[address] [address] Specific gravity (U) [Rel density] 1.010 Invalid Interpretation Code 1.005-1.030 [facility] Comment on above: Performed By: #### 1 7409784 ####[address] [address] Type of Urine collection method Clean Catch Normal [facility] Comment on above: Performed By: #### 1 2846484 ####[address] [address] Urobilinogen Qn (U) 0.2 {Jan'U}/dL Normal 0.0-1.0 [facility] Comment on above: Performed By: #### 1 9117742 ####[address] [address] WBC Auto Ql (U) Negative Normal Negative [facility] Comment on above: Performed By: #### 1 9953189 ####[facility] [address] [place] [address] WBC LM.HPF (Urine sed) [#/Area] 0-5 Normal 0-5 [facility] Comment on above: Performed By: #### 1 6292549 ####[facility] [address] [place] [address] eGFRon 04-30-2023 eGFR 108 mL/min/1.73 m2 Normal >=59 [facility] Comment on above: Order Comment: Order added by Discern Expert. Performed By: #### 2 6279749, 2127538, 7131548, 9862227, 5528318, 02389424, 0650510 ####[facility] [address] [place] [address] ED NOTESon 04-28-2023 [facility] Ed Note ED Note: Last filed note HNO ID: [id number] Author: Laurita Baires, DARSHAN Service: Length of Stay Author Type: Registered Nurse Filed: 04/28/2338 Note Text: Patient discharged to home, alert and oriented, skin warm, dry and pink. Denies needs and or questions. Will follow-up as directed, patient encouraged to return for worsening or new symptoms or other concerns. [facility] Ed Note ED Note: Last filed note HNO ID: [id number] Author: Laurita Baires, DARSHAN Service: Length of Stay Author Type: Registered Nurse Filed: 04/28/2330 Note Text: Pt ambulated to restroom with steady gait. Pt states her pain has improved and is now 5/10 and tolerable. Physician aware. HNO ID: [id number] Author: Laurita Baires, RN Service: Length of Stay Author Type: Registered Nurse Filed: 04/28/2329 Note Text: Pt ambulated to restroom with steady gait. Pt states her pain has improved and is now 5/10 and tolerable. [facility] Ed Note ED Note: Last filed note HNO ID: [id number] Author: Laurita Baires RN Service: Length of Stay Author Type: Registered Nurse Filed: 04/27/23 2337 Note Text: To bedside for rounding. Pt medicated for 10/10 pain per MAR. Pt resting quietly. No other needs expressed at this time. Call light in reach. [facility] Ed Note ED Note: Last filed note HNO ID: [id number] Author: Laurita Baires RN Service: Length of Stay Author Type: Registered Nurse Filed: 04/27/23 2301 Note Text: To bedside to introduce self to pt and address needs. Resident at bedside. Pt resting quietly. No needs expressed at this time. Call light within reach. [facility] ED PROVIDER NOTESon 04-28-19 [facility] Ed Provider Note ED Provider Note: Pepe ast filed note HNO ID: [id number] Author: Sal Mena MD Service: Emergency Medicine Author Type: Physician Filed: 04/28/23 0508 Note Text: ATTENDING NOTE I have personally seen and examined this patient. I have fully participated in the care of this patient. I have reviewed and agree with all pertinent clinical information including history, physical exam, labs, radiographic studies and the plan. I have also reviewed and agree with the medications, allergies and past medical history sections for this patient. Please see Resident/KENNEDI note and ED Course below for further [...] by: Sal Mena MD, 04/28/2023 5:07 AM [facility] Ed Provider Note ED Provider Note: L ast filed note HNO ID: [id number] Author: Sharan Hwang MD Service: Emergency Medicine Author Type: Resident Filed: 04/28/23 0031 Note Text: CHIEF COMPLAINT Chief Complaint Patient [...] times a day ALLERGIES Allergies Allergen Reactions Hydrocodone-Acetaminoph en Hives Penicillin G Hives PHYSICAL EXAM VITAL SIGNS: ED Triage Vitals [04/27/232239] Enc Vitals Group BP (!) 170/96 Pulse 83 Resp 16 Temp 97.8 F (36.6 C) Temp src SpO2 98 % Weight Height Head Circumference Peak Flow Pain Score Pain Loc Pain Edu? Excl. in GC? Vitals: 04/27/230 BP: (!) 170/96 Pulse: 83 Resp: 16 [...] injection 15 mg (15 mg Intramuscular Given 04/27/237) COURSE Pertinent Labs In summary, patient presents [...] with se (more content not included)... Normal [facility] ED TRIAGEon 04-28-2023 [facility] Ed Triage Note ED Triage Note: Last filed note HNO ID: [id number] Author: Rebecca Gómez RN Service: Emergency Medicine Author Type: Registered Nurse Filed: 04/27/23 1075 Note Text: Patient arrives to triage stating she has a herniated L4-L5 disc, got on an inversion table tonight and is now having back pain. Denies any other injury or complaints. A Normal [facility] ED Note-Physicianon 04-27-19 ED Note-Physician [facility] Comment on above: Result Comment: Elec tronically Signed By: Angelic Reece PA-C\.br\Date and Time Signed: 04/25/23 10:27 EST\.br\Electronically Co-Signed By: Pedro Pablo Fletcher DO\.br\Date and Time Co-Signed: 04/27/23 20:17 EST Consent for Treatmenton Consent for Treatment [id number]#1.00T IFF [facility] Discharge Instructionson Discharge Instructions [id number]#1.00T IFF [facility] ED Clinical Summaryon 2023 ED Clinical Summary Normal [facility] ED Note-Physicianon 04-26-19 ED Note-Physician [facility] Comment on above: Result Comment: Elec tronically Signed By: Balbina Bryant M.D.\.br\Date and Time Signed: 04/26/23 10:46 EST ED Patient Education Noteon 04-26-2023 ED Patient Education Note Normal [facility] ED Patient Summaryon ED Patient Summary Normal [facility] ED Note-Physicianon 04-23-19 ED Note-Physician [facility] Comment on above: Result Comment: Elec tronically Signed By: Landon Tidwell PA-C.br\Date and Time Signed: 04/22/23 20:40 EST\.br\Electronically Co-Signed By: Landon Tidwell PA-C.br\Date and Time Co-Signed: 04/22/23 20:40 EST\.br\Electronically Co-Signed By: Pedro Pablo Fletcher DO.br\Date and Time Co-Signed: 04/23/23 00:21 EST Consent for Treatmenton 03-26 Consent for Treatment [id number]#1.00T IFF Normal [facility] Discharge Instructionson Discharge Instructions [id number]#1.00 TIFF Normal [facility] ED Clinical Summaryon 2023 ED Clinical Summary Normal [facility] ED Patient Education Noteon 04-22-2023 ED Patient Education Note Normal [facility] ED Patient Summaryon 024 ED Patient Summary Normal [facility] XR shoulder LT min 2V*on XR shoulder LT min 2V* [facility] [place] [address] XRay Report Signed Patient: Jerad Tracy MR#: [id number] 49 : 1975 Acct:[id number] Age/Sex: 48 / F ADM Date: 04/12/23 Loc: ER Room: Type: [facility] ER Attending Dr: Copies to: Joshua Ferrell [...] process. Impression dictated by: Johan Velazquez Jr., DIvan04/12/2023 2:36 PM Dictation Location: [place] [address] Transcribed By: [facility] 04/12/23 1436 Dictated By: Johan Velazquez Jr, DO 04/12/23 1435 Signed By: 04/12/23 1436 Normal [facility] CT Spine Lumbar w/o Contrast on 04-11-2023 CT Spine Lumbar w/o Contrast Normal [facility] CT Spine Thoracic w/o Contra ston 04-11-2023 CT Spine Thoracic w/o Contrast Normal [facility] Consent To Leave AMAon 04-11 Consent To Leave AMA [id number]#1.00 TIFF [facility] Consent for Treatmenton 03-25 Consent for Treatment [id number]#1.00T IFF [facility] Discharge Instructionson Discharge Instructions [id number]#1.0 0TIFF [facility] ED Clinical Summaryon 2023 ED Clinical Summary Normal [facility] ED Clinical Summary Normal [facility] ED Note-Nursingon 04-11-2023 ED Note-Nursing Patient requesting t o leave AMA at this time. Dr. Fletcher made aware. Patient ambulatory upon exit with spouse. Normal [facility] ED Note-Nursing Patient offered additional medication. Patient states no relief from original medication. Patient refused additional medications. Patient states I can just do that at home. Dr. Fletcher made aware. Normal [facility] ED Note-Nursing Patient updated with plan at this time, aware of awaiting ct results. Normal [facility] ED Note-Physicianon 04-11-19 ED Note-Physician [facility] Comment on above: Result Comment: Elec tronically Signed By: Robert Taylor PA-C\.br\Date and Time Signed: 04/11/23 18:59 EST\.br\Electronically Co-Signed By: Hajdari M.D., Astrit H\.br\Date and Time Co-Signed: 04/11/23 19:13 EST ED Patient Education Noteon 04-11-2023 ED Patient Education Note Normal [facility] ED Patient Education Note Normal [facility] ED Patient Summaryon 024 ED Patient Summary Normal [facility] ED Patient Summary Normal [facility] RAD - Preliminary Cat Scan R eporton 04-11-2023 RAD - Preliminary Cat Scan Report [id number]#1.00 TIFF Normal [facility] XR Spine Lumbosacral 2 or 3 Viewson 04-11-2023 XR Spine Lumbosacral 2 or 3 Views Normal [facility] Consent for Treatmenton 03-25 Consent for Treatment [id number]#1.00T IFF Normal [facility] CT Spine Lumbar w/o Contrast on 04-08-2023 [...] above for additional findings. Radiation Dose Estimate: CTDI(mGy):0.608733 / / / kVp:120.844104 / mAs:0.468020 / / / DLP(mGy-cm):3.154309Gdh y Part: CTDI(mGy):49.030715 / / / kVp:140.921676 / mAs:341.723041 / / / DLP(mGy-cm):1330.929735 Body Part: Final Dictated by: Kem Childers MD Dictated DT/TM: 04.08.2023 7:30 pm Signed by: Kem Childers MD Signed (Electronic Signature): 04.08.2023 7:37 pm (If Report Is Signed, Electronically Signed in Other Vendor System) Normal [facility] ED Clinical Summaryon 2023 ED Clinical Summary (Inserted Image. Darlene ble to display) [place] [id number] ED Clinical Summary Person Information Name: Jerad Tracy/[facility] Age: 48 Years : 1975 Sex: Female PCP: Marital Status: Phone: Race: White Ethnicity: Not or Language: Guatemalan Visit Reason: Back pain; back pain Acuity: 4 Enc Type: Emergency Med Service: Emergency Medicine Arrival: 04/08/2023 16:48:15 Discharge: 04/08/2023 20:40:00 LOS: 000 03:52 Checkin: 04/08/2023 16:48:15 Checkout: 04/08/2023 20:40:00 Dispo Type: Home or Self Care Address: [address] [place], [place] [address]Jazmine [facility] [id number] Provider Notes: Diagnosis: 1:Lumbar pain; 2:Bulging lumbar [...] for 7 Days. Refills: 0. Last Dose: __ esomeprazole (NexIUM 20 mg oral delayed release capsule) 1 Capsules Oral (given by mouth) every day. Last Dose: __ methylPREDNISolone (Medrol Dosepak 4 mg oral tablet) 1 Packets Oral (given by mouth) As Indicated for 6 Days. as directed on package labeling. Refills: 0. Last Dose: __ ondansetron (Zofran 4 mg oral tablet) 1 Tabs Oral (given by mouth) every 8 hours as needed as needed for nausea/vomiting. Refills: 0. Last Dose: __ Other Medications dicyclomine (Bentyl 10 mg oral [...] Physician Referral Line Comments: [facility] Referral Line [phone] to establish PCP Discharge Orders: Discharge Patient 04/08/23 20:15:00 EST, Discharge to Home, Self, Lumbar pain Patient Education Information: Degenerative Disk Disease [facility] Poison Help line: . [facility] Hotline: [place] Tobacco Quit Line: [place], [place]) [address]: [phone] [place], [place]) [address]: [phone] [facility] [address], [place]: [phone] [facility] ED Note-Physicianon 04-08-19 ED Note-Physician Chief Complaint [...] and appropria (more content not included)... Normal [facility] Auto Diffon 04-05-2023 Basophils/100 WBC (Bld) 0.4 % Normal 0.0-2.0 [facility] Comment on above: Order Comment: Order Added by Discern Expert. Performed By: #### 2 905516, 1400449, 7601744, 8593098, 9524319, 38725479 ####[facility] [address] [place] [address] Basophils/Leukocytes Auto (Bld) [Pure # fraction] 0.0 E9/L Normal 0.0-0.2 [facility] Comment on above: Order Comment: Order Added by Gregory Expert. Performed By: #### 2 994086, 4693798, 9209511, 6876787, 8446773, 07683710 ####[facility] [address] [place] [address] Eosinophils/100 WBC (Bld) 2.3 % Normal 0.0-8.0 [facility] Comment on above: Order Comment: Order Added by Gregory Expert. Performed By: #### 2 938416, 0397228, 5512020, 5210757, 6040063, 47419637 ####[facility] [address] [place] [address] Eosinophils/Leukocytes Auto (Bld) [Pure # fraction] 0.2 E9/L Normal 0.0-0.5 [facility] Comment on above: Order Comment: Order Added by Gregory Expert. Performed By: #### 2 242617, 7799556, 3303877, 8977085, 4278143, 82516108 ####[facility] [address] [place] [address] Lymphocytes/100 WBC (Bld) 29.6 % Normal 14.0-50.0 [facility] Comment on above: Order Comment: Order Added by Gregory Expert. Performed By: #### 2 198604, 2910404, 3992345, 3055179, 2178846, 21423937 ####[address] [address] Lymphocytes/Leukocytes Auto (Bld) [Pure # fraction] 2.2 E9/L Normal 1.0-4.0 [facility] Comment on above: Order Comment: Order Added by Discern Expert. Performed By: #### 2 713567, 0609565, 3652442, 3505170, 6808877, 46741740 ####[facility] [address] [place] [address] Monocytes/100 WBC (Bld) 9.7 % Normal 4.0-14.0 [facility] Comment on above: Order Comment: Order Added by Discern Expert. Performed By: #### 2 036385, 1209803, 1396632, 1657446, 5511154, 08010661 ####[address] [place] [address] Monocytes/Leukocytes Auto (Bld) [Pure # fraction] 0.7 E9/L Normal 0.2-1.0 [facility] Comment on above: Order Comment: Order Added by Discern Expert. Performed By: #### 2 523124, 8301365, 7082162, 3201234, 1631183, 18531009 ####[address] [place] [address] Neutrophils/100 WBC (Bld) 58.0 % Normal 36.0-75.0 [facility] Comment on above: Order Comment: Order Added by Discern Expert. Performed By: #### 2 907243, 5441441, 4624580, 4431846, 6005220, 21281929 ####[address] [place] [address] Neutrophils/Leukocytes Auto (Bld) [Pure # fraction] 4.3 E9/L Normal 2.0-7.5 [facility] Comment on above: Order Comment: Order Added by Discern Expert. Performed By: #### 2 918105, 5907963, 7891891, 7266629, 3691708, 68335272 ####[address] [place] [address] BMPon 04-05-2023 Anion gap [Moles/Vol] 11 mmol/L Normal 6-16 [facility] Comment on above: Performed By: #### 2 193839, 4863097, 3700483, 5413546, 6443382, 00283202 ####[facility] [address] [place] [address] BUN/Creat Ratio 15 No Units Normal 10-20 [facility] Comment on above: Performed By: #### 2 401800, 8286628, 4356909, 0781618, 8893507, 24897254 ####[facility] [address] [place] [address] Calcium [Mass/Vol] 8.6 mg/dL Low 8.9-11.1 [facility] Comment on above: Performed By: #### 2 675800, 4993539, 0824914, 4187848, 4188150, 02999156 ####[facility] [address] [place] [address] Chloride [Moles/Vol] 107 mmol/L Normal 101-111 [facility] Comment on above: Performed By: #### 2 211691, 3602362, 5735448, 2987068, 0977957, 53601934 ####[facility] [address] [place] [address] CO2 [Moles/Vol] 24 mmol/L Normal 21-31 [facility] Comment on above: Performed By: #### 2 290766, 7600379, 6990537, 6711895, 3749061, 55297082 ####[facility] [address] [place] [address] Creatinine [Mass/Vol] 0.8 mg/dL Normal 0.5-1.3 [facility] Comment on above: Performed By: #### 2 630752, 7394414, 3728028, 3383831, 9146948, 01054857 ####[facility] [address] [place] [address] Glucose [Mass/Vol] 145 mg/dL Normal 55-199 [facility] Comment on above: Performed By: #### 2 330591, 9943680, 2104231, 7997211, 0382810, 77882352 ####[facility] [address] [place] [address] Potassium [Moles/Vol] 3.4 mmol/L Low 3.5-5.3 [facility] Comment on above: Performed By: #### 2 942389, 2331953, 2961592, 6782768, 3195394, 26760253 ####[facility] [address] [place] [address] Sodium [Moles/Vol] 139 mmol/L Normal 135-145 [facility] Comment on above: Performed By: #### 2 524030, 7157239, 6872719, 1843724, 5856055, 81053822 ####[facility] [address] [place] [address] Urea nitrogen [Mass/Vol] 12 mg/dL Normal 5-21 [facility] Comment on above: Performed By: #### 2 805232, 0017867, 6431579, 3843646, 8901507, 78832685 ####[facility] [address] [place] [address] CBC w/ Auto Diffon Erythrocyte distribution width (RBC) [Ratio] 13.2 % Normal 10.9-14.2 [facility] Comment on above: Performed By: #### 2 741958, 1482533, 2852330, 4108225, 5106873, 90708205 ####[facility] [address] [place] [address] Hematocrit (Bld) [Volume fraction] 43.1 % Normal 34.0-46.0 [facility] Comment on above: Performed By: #### 2 823195, 7177319, 4580444, 7389381, 7609462, 60997404 ####[facility] [address] [place] [address] Hemoglobin (Bld) [Mass/Vol] 14.5 g/dL Normal 12.0-16.0 [facility] Comment on above: Performed By: #### 2 350215, 1326323, 7414916, 7908271, 0285716, 21278767 ####[facility] [address] [place] [address] MCH (RBC) [Entitic mass] 31.8 pg Normal 27.0-34.0 [facility] Comment on above: Performed By: #### 2 369474, 0764416, 2708611, 1343946, 7801048, 02058710 ####[address] [address] MCHC (RBC) [Mass/Vol] 33.5 g/dL Normal 31.4-36.0 [facility] Comment on above: Performed By: #### 2 166196, 9102316, 2362629, 6714544, 0358882, 93236522 ####[address] MCV (RBC) [Entitic vol] 95.0 fL Normal 80.0-100.0 [facility] Comment on above: Performed By: #### 2 557815, 8516320, 0046520, 7427410, 6235654, 15834203 ####[address] [address] Platelet mean volume (Bld) [Entitic vol] 9.0 fL Normal 6.4-10.8 [facility] Comment on above: Performed By: #### 2 148120, 1962677, 3504093, 1690127, 7774374, 04556271 ####[address] [address] Platelets (Bld) [#/Vol] 268.0 E9/L Normal 150.0-500.0 [facility] Comment on above: Performed By: #### 2 611715, 3211923, 2240894, 6986069, 6146959, 26122097 ####[address] RBC (Bld) [#/Vol] 4.5 E12/L Normal 4.3-5.9 [facility] Comment on above: Performed By: #### 2 326179, 5426916, 8081762, 2771030, 9089861, 88547235 ####[facility] [address] [place] [address] WBC corrected for nucl RBC Auto (Bld) [#/Vol] 7.4 E9/L Normal 4.0-11.0 [facility] Comment on above: Performed By: #### 2 537740, 7113531, 9890774, 8674043, 4963904, 90711308 ####[facility] [address] [place] [address] CHEMISTRYOrdered By: SYSTEM SYSTEM on 04-05-2023 Albumin [Mass/Vol] 4.0 g/dL Normal 3.3 - 5.0 gm/dL Rem[facility] Chem Albumin/Globulin [Mass ratio] 1.2 {ratio} Normal 1.1 - 2.2 [facility] Alk Phos 79 [iU]/d Normal 21 - 98 Int._Unit/L Remisol Chem ALT 140 [iU]/d High 6 - 46 Int._Unit/L [facility] Anion gap [Moles/Vol] 11 mmol/L Normal 6 - 16 mEq/L R emisol Chem AST 83 [iU]/d High 5 - 43 Int._Unit/L [facility] Bili Direct 0.2 mg/dL Normal 0.0 - 0.4 mg/dL [facility] Bili Indirect 0.6 mg/dL Normal 0.1 - 0.9 mg/dL [facility] Bili Total 0.8 mg/dL Normal 0.0 - 1.1 mg/dL [facility] Calcium [Mass/Vol] 8.6 mg/dL Low 8.9 - 11. 1 mg/dL [facility] Chloride [Moles/Vol] 107 mmol/L Normal 101 - 1 11 mmol/L [facility] CO2 [Moles/Vol] 24 mmol/L Normal 21 - 31 mmol/L [facility] Creatinine [Mass/Vol] 0.8 mg/dL Normal 0.5 - 1.3 mg/dL [facility] eGFR mL/min/1.73 m2 Normal >=59mL/min/1 .73 m2 [facility] Globulin (S) [Mass/Vol] 3.3 g/dL Normal 1.4 - 4.0 gm/dL [facility] Glucose [Mass/Vol] 145 mg/dL Normal 55 - 199 mg/dL [facility] Lipase Lvl 26 unit/L Normal 13 - 58 unit/L [facility] Potassium [Moles/Vol] 3.4 mmol/L Low 3.5 - 5.3 mmol/L [facility] Protein [Mass/Vol] 7.3 g/dL Normal 6.0 - 7.8 gm/dL [facility] Sodium [Moles/Vol] 139 mmol/L Normal 135 - 145 mmol/L [facility] Urea nitrogen [Mass/Vol] 12 mg/dL Normal 5 - 21 mg/dL [facility] Urea nitrogen/Creatinine [Mass ratio] 15 mg/mg Normal 10 - 20 [facility] Consent for Treatmenton 03-25 Consent for Treatment [id number]#1.00T IFF Normal [facility] Discharge Instructionson Discharge Instructions [id number]#1.00 TIFF Normal [facility] ED Clinical Summaryon 2023 ED Clinical Summary Normal [facility] ED Note-Physicianon 04-05-19 ED Note-Physician Normal [facility] Comment on above: Result Comment: Elec tronically Signed By: Robert Taylor PA-C\.br\Date and Time Signed: 04/05/23 18:35 EST\.br\Electronically Co-Signed By: Nikhil Tubbs DO.br\Date and Time Co-Signed: 04/05/23 18:36 EST ED Patient Education Noteon 04-05-2023 ED Patient Education Note Normal [facility] ED Patient Summaryon 024 ED Patient Summary Normal [facility] HEMATOLOGYOrdered By: SYSTEM SYSTEM on 04-05-2023 Basophils/100 WBC (Bld) 0.4 % Normal 0.0 - 2.0 % [facility] Basophils/Leukocytes Auto (Bld) [Pure # fraction] 0.0 E9/L Normal 0.0 - 0.2 E9/L [facility] Eosinophils/100 WBC (Bld) 2.3 % Normal 0.0 - 8.0 % [facility] Eosinophils/Leukocytes Auto (Bld) [Pure # fraction] 0.2 E9/L Normal 0.0 - 0.5 E9/L [facility] Lymphocytes/100 WBC (Bld) 29.6 % Normal 14.0 - 50.0 % [facility] Lymphocytes/Leukocytes Auto (Bld) [Pure # fraction] 2.2 E9/L Normal 1.0 - 4.0 E9/L [facility] Monocytes/100 WBC (Bld) 9.7 % Normal 4.0 - 14.0 % [facility] Monocytes/Leukocytes Auto (Bld) [Pure # fraction] 0.7 E9/L Normal 0.2 - 1.0 E9/L [facility] Neutrophils/100 WBC (Bld) 58.0 % Normal 36.0 - 75.0 % [facility] Neutrophils/Leukocytes Auto (Bld) [Pure # fraction] 4.3 E9/L Normal 2.0 - 7.5 E9/L [facility] HEMATOLOGYOrdered By: Nisha Chau on 04-05-2023 Erythrocyte distribution width (RBC) [Ratio] 13.2 % Normal 10.9 - 14.2 % [facility] Hematocrit (Bld) [Volume fraction] 43.1 % Normal 34.0 - 46.0 % [facility] Hemoglobin (Bld) [Mass/Vol] 14.5 g/dL Normal 12.0 - 16.0 gm/dL [facility] MCH (RBC) [Entitic mass] 31.8 pg Normal 27.0 - 34.0 pg [facility] MCHC (RBC) [Mass/Vol] 33.5 g/dL Normal 31.4 - 36.0 gm/dL [facility] MCV (RBC) [Entitic vol] 95.0 fL Normal 80.0 - 100.0 fL [facility] Platelet mean volume (Bld) [Entitic vol] 9.0 fL Normal 6.4 - 10.8 fL [facility] Platelets (Bld) [#/Vol] 268.0 E9/L Normal 150.0 - 500.0 E9/L [facility] RBC (Bld) [#/Vol] 4.5 E12/L Normal 4.3 - 5.9 E12/L [facility] WBC corrected for nucl RBC Auto (Bld) [#/Vol] 7.4 E9/L Normal 4.0 - 11.0 E9/L [facility] Hep Func Panelon 04-05-2023 Albumin [Mass/Vol] 4.0 g/dL Normal 3.3-5.0 [facility] Comment on above: Performed By: #### 2 873484, 8543773, 3168620, 0234554, 7931444, 85758305 ####[facility] [address] [place] [address] Albumin/Globulin [Mass ratio] 1.2 {ratio} Normal 1.1-2.2 [facility] Comment on above: Performed By: #### 2 743296, 8778395, 3733833, 9904573, 8554201, 70150814 ####[facility] [address] [place] [address] Alk Phos 79 Int._Unit/L Normal 21-98 [facility] Comment on above: Performed By: #### 2 855971, 3270389, 5549722, 8726197, 1929210, 39093167 ####[facility] [address] [place] [address] ALT 140 Int._Unit/L High 6-46 [facility] Comment on above: Performed By: #### 2 789427, 5525204, 7070855, 9508851, 4496661, 82379929 ####[facility] [address] [place] [address] AST 83 Int._Unit/L High 5-43 [facility] Comment on above: Performed By: #### 2 668142, 7394765, 6638714, 6369073, 0389731, 36725592 ####[facility] [address] [place] [address] Bili Direct 0.2 mg/dL Normal 0.0-0.4 [facility] Comment on above: Performed By: #### 2 131778, 1023802, 6586988, 2778683, 1240266, 44532683 ####[facility] [address] [place] [address] Bili Indirect 0.6 mg/dL Normal 0.1-0.9 [facility] Comment on above: Performed By: #### 2 692864, 9073454, 2928868, 5808465, 0024107, 18125925 ####[facility] [address] [place] [address] Bili Total 0.8 mg/dL Normal 0.0-1.1 [facility] Comment on above: Performed By: #### 2 676738, 9157295, 5614840, 4986617, 1086847, 76360975 ####[facility] [address] [place] [address] Globulin (S) [Mass/Vol] 3.3 g/dL Normal 1.4-4.0 [facility] Comment on above: Performed By: #### 2 508018, 9516718, 0257133, 8077827, 1373594, 88536894 ####[facility] [address] [place] [address] Protein [Mass/Vol] 7.3 g/dL Normal 6.0-7.8 [facility] Comment on above: Performed By: #### 2 912680, 9320114, 9987586, 9179234, 0842191, 09175395 ####[facility] [address] [place] [address] Lipase Levelon 04-05-2023 Lipase Lvl 26 unit/L Normal 13-58 [facility] Comment on above: Performed By: #### 2 144754, 8095799, 1542450, 9605265, 8703849, 64543100 ####[facility] [address] [place] [address] eGFRon 04-05-2023 GFR/1.73 sq M.predicted among non-blacks MDRD (S/P/Bld) [Vol rate/Area] mL/min/{1.73_m2} Normal >=59 [facility] Comment on above: Order Comment: Order added by Discern Expert. Performed By: #### 2 362734, 5780057, 9329258, 4928942, 5631681, 41017562 ####[facility] [address] [place] [address] Consent for Treatmenton Consent for Treatment [id number]#1.00T IFF Normal [facility] Discharge Instructionson Discharge Instructions [id number]#1.00T IFF Normal [facility] ED Clinical Summaryon 2023 ED Clinical Summary Normal [facility] ED Note-Physicianon 04-02-19 24 ED Note-Physician Normal [facility] Comment on above: Result Comment: Elec tronically Signed By: Elisa Sánchez DO\.br\Date and Time Signed: 04/02/23 22:34 EST ED Patient Education Noteon 04-02-2023 ED Patient Education Note Normal [facility] ED Patient Summaryon 024 ED Patient Summary Normal [facility] Alpha 1 antitrypsinon 2023 Alpha 1 antitrypsin Nephelometry [Mass/Vol] 155 mg/dL Normal 84-218 [facility] Comment on above: Performed By: #### 5 0023-1 #### JOLENE Cantu ([id number]) [facility] ([facility]) [address] [place] [address] Shtum-0-Wkaubtuhaknom 2023 AFP [Mass/Vol] 6 ng/mL Normal 0-9 [facility] Comment on above: Order Comment: AFP t esting is performed by chemiluminescent immunoassay using the Siemens Malesbanget. Values obtained with different analyte methods cannot be used interchangeably. This test can be used as an adjunct in the diagnosis and monitoring of AFP-producing tumors, including non-seminomatous germ cell tumors and hepatocellular carcinomas. Performed By: #### 1 834-1 #### JOLENE Cantu ([id number]) [facility] ([facility]) [address] [id number] Bilirubin.glucuronidated+Kenan irubin.albumin boundon 04-01-2023 Bilirubin.direct [Mass/Vol] 0.1 mg/dL Normal 0.0-0.3 [facility] Comment on above: Performed By: #### 1 968-7 #### SHWETA ROCHA (29300) [facility] ([facility]) [address] [place] [address] CBC W Auto Differential pane l (Bld)on 04-01-2023 Basophils (Bld) [#/Vol] 0.01 x10*3/uL Normal 0.00-0.10 [facility] Comment on above: Performed By: #### 5 7021-8 #### SHWETA ROCHA ([id number]) [facility] ([facility]) [address] [place] [address] Basophils/100 WBC (Bld) 0.2 % Normal 0.0-2.0 [facility] Comment on above: Performed By: #### 5 7021-8 #### SHWETA ROCHA (98789) [facility] ([facility]) [address] [place] [address] Eosinophils (Bld) [#/Vol] 0.16 x10*3/uL Normal 0.00-0.70 [facility] Comment on above: Performed By: #### 5 7021-8 #### SHWETA ROCHA ([id number]) [facility] ([facility]) [address] [place] [address] Eosinophils/100 WBC (Bld) 2.6 % Normal 0.0-6.0 [facility] Comment on above: Performed By: #### 5 7021-8 #### SHWETA ROCHA (28799) [facility] ([facility]) [address] [place] [address] Erythrocyte distribution width (RBC) [Ratio] 12.2 % Normal 11.5-14.5 [facility] Comment on above: Performed By: #### 5 7021-8 #### SHWETA ROCHA (57320) [facility] ([facility]) [address] [place] [address] Hematocrit (Bld) [Volume fraction] 47.8 % High 36.0-46.0 [facility] Comment on above: Performed By: #### 5 7021-8 #### SHWETA ROCHA (00104) [facility] ([facility]) [address] [place] [address] Hemoglobin (Bld) [Mass/Vol] 16.0 g/dL Normal 12.0-16.0 [facility] Comment on above: Performed By: #### 5 7021-8 #### SHWETA ROCHA (28597) [facility] ([facility]) [address] [place] [address] Immature granulocytes (Bld) [#/Vol] 0.02 x10*3/uL Normal 0.00-0.70 [facility] Comment on above: Performed By: #### 5 7021-8 #### SHWETA ROCHA (70235) [facility] ([facility]) [address] [place] [address] Immature granulocytes/100 WBC (Bld) 0.3 % Normal 0.0-0.9 [facility] Comment on above: Result Comment: Aspen ture Granulocyte Count (IG) includes promyelocytes, myelocytes and metamyelocytes but does not include bands. Percent differential counts (%) should be interpreted in the context of the absolute cell counts (cells/UL). Performed By: #### 5 7021-8 #### SHWETA ROCHA (96094) [facility] ([facility]) [address] [place] [address] Lymphocytes (Bld) [#/Vol] 2.03 x10*3/uL Normal 1.20-4.80 [facility] Comment on above: Performed By: #### 5 7021-8 #### SHWETA ROCHA (08149) [facility] ([facility]) [address] [place] [address] Lymphocytes/100 WBC (Bld) 32.7 % Normal 13.0-44.0 [facility] Comment on above: Performed By: #### 5 7021-8 #### SHWETA ROCHA (61684) [facility] ([facility]) [address] [place] [address] MCH (RBC) [Entitic mass] 32.3 pg Normal 26.0-34.0 [facility] Comment on above: Performed By: #### 5 7021-8 #### SHWETA ROCHA (40966) [facility] ([facility]) [address] [place] [address] MCHC (RBC) [Mass/Vol] 33.5 g/dL Normal 32.0-36.0 [facility] Comment on above: Performed By: #### 5 7021-8 #### SHWETA ROCHA (68542) [facility] ([facility]) [address] [place] [address] MCV (RBC) [Entitic vol] 96 fL Normal 80-100 [facility] Comment on above: Performed By: #### 5 7021-8 #### SHWETA ROCHA (69108) [facility] ([facility]) [address] [place] [address] Monocytes (Bld) [#/Vol] 0.72 x10*3/uL Normal 0.10-1.00 [facility] Comment on above: Performed By: #### 5 7021-8 #### SHWETA ROCHA (06661) [facility] ([facility]) [address] [place] [address] Monocytes/100 WBC (Bld) 11.6 % Normal 2.0-10.0 [facility] Comment on above: Performed By: #### 5 7021-8 #### SHWETA ROCHA (51956) [facility] ([facility]) [address] [place] [address] Neutrophils (Bld) [#/Vol] 3.26 x10*3/uL Normal 1.20-7.70 [facility] Comment on above: Result Comment: Perc ent differential counts (%) should be interpreted in the context of the absolute cell counts (cells/uL). Performed By: #### 5 7021-8 #### SHWETA ROCHA (93796) [facility] ([facility]) [address] [place] [address] Neutrophils/100 WBC (Bld) 52.6 % Normal 40.0-80.0 [facility] Comment on above: Performed By: #### 5 7021-8 #### SHWETA ROCHA (50150) [facility] ([facility]) [address] [place] [address] Nucleated RBC/100 WBC (Bld) [Ratio] 0.0 /100 WBCs Normal 0.0-0.0 [facility] Comment on above: Performed By: #### 5 7021-8 #### SHWETA ROCHA (88784) [facility] ([facility]) [address] [place] [address] Platelets (Bld) [#/Vol] 403 x10*3/uL Normal 150-450 [facility] Comment on above: Performed By: #### 5 7021-8 #### SHWETA ROCHA (04066) [facility] ([facility]) [address] [place] [address] RBC (Bld) [#/Vol] 4.96 x10*6/uL Normal 4.00-5.20 [facility] Comment on above: Performed By: #### 5 7021-8 #### SHWETA ROCHA (26305) [facility] ([facility]) [address] [place] [address] 35967 WBC (Bld) [#/Vol] 6.2 x10*3/uL Normal 4.4-11.3 [facility] Comment on above: Performed By: #### 5 7021-8 #### SHWETA ROCHA (48260) [facility] ([facility]) [address] [place] [address] Ceruloplasminon 04-01-2023 Ceruloplasmin [Mass/Vol] 30.7 mg/dL Normal 20.0-60.0 [facility] Comment on above: Performed By: #### 2 064-4 #### JOLENE Cantu (78384) [facility] ([facility]) [address] [place], [place] [id number] Coagulation tissue factor in ducedon 04-01-2023 PT Coag (PPP) [Time] 10.1 s Normal 9.8-12.8 [facility] Comment on above: Performed By: #### 5 902-2 #### JOLENE Cantu (02496) [facility] ([facility]) [address] [place] [address]896 Comprehensive metabolic 2000 panelon 04-01-2023 Albumin BCP dye [Mass/Vol] 4.3 g/dL Normal 3.4-5.0 [facility] Comment on above: Performed By: #### 2 4323-8 #### SHWETA ROHCA (26267) [facility] ([facility]) [address] [place] [address] ALP [Catalytic activity/Vol] 97 U/L Normal 33-110 [facility] Comment on above: Performed By: #### 2 4323-8 #### SHWETA ROCHA (76696) [facility] ([facility]) [address] [place] [address] 66994 ALT With P-5'-P [Catalytic activity/Vol] 144 U/L High 7-45 [facility] Comment on above: Result Comment: Katia ents treated with Sulfasalazine may generate falsely decreased results for ALT. Performed By: #### 2 4323-8 #### BEATRIZIBRENE ADAMA KEY ([id number]) [facility] ([facility]) [address] [place] [address] [id number] Anion gap [Moles/Vol] 14 mmol/L Normal 10-20 [facility] Comment on above: Performed By: #### 2 4323-8 #### BEATRIZIBRENE ADAMA KEY ([id number]) [facility] ([facility]) [address] [place] [address] [id number] AST With P-5'-P [Catalytic activity/Vol] 120 U/L High 9-39 [facility] Comment on above: Performed By: #### 2 4323-8 #### BEATRIZIBRENE BARNETT RIO KEY ([id number]) [facility] ([facility]) [address] [place] [address] 79368 Bilirubin [Mass/Vol] 0.6 mg/dL Normal 0.0-1.2 [facility] Comment on above: Performed By: #### 2 4323-8 #### BEATRIZIBELIGANESH ADAMA KEY ([id number]) [facility] ([facility]) [address] [place] [address] 09983 Calcium [Mass/Vol] 9.4 mg/dL Normal 8.6-10.3 [facility] Comment on above: Performed By: #### 2 4323-8 #### BEATRIZIBRENE ADAMA KEY ([id number]) [facility] ([facility]) [address] [place] [address] [id number] Chloride [Moles/Vol] 101 mmol/L Normal 98-107 [facility] [facility] Comment on above: Performed By: #### 2 4323-8 #### ANAIBELIGANESH ADAMA KEY ([id number]) [facility] ([facility]) [address] [place] [address] 70335 CO2 [Moles/Vol] 29 mmol/L Normal 21-32 [facility] Comment on above: Performed By: #### 2 4323-8 #### BEATRIZIBELIGANESH ADAMA KEY ([id number]) [facility] ([facility]) [address] [place] [address] 61007 Creatinine [Mass/Vol] 0.74 mg/dL Normal 0.50-1.05 [facility] Comment on above: Performed By: #### 2 4323-8 #### SHWETA ROCHA (06591) [facility] ([facility]) [address] [place] [address] 69319 GFR/1.73 sq M.predicted MDRD (S/P/Bld) [Vol rate/Area] mL/min/{1.73_m2} Normal >60 [facility] Comment on above: Result Comment: Calc ulations of estimated GFR are performed using the 2020 CKD-EPI Study Refit equation without the race variable for the IDMS-Traceable creatinine methods. https://jasn.asnjournals.org/content/early//ASN.03489 34734 Performed By: #### 2 4323-8 #### SHWETA ROCHA (46505) [facility] ([facility]) [address] [place] [address] 49264 Glucose [Mass/Vol] 81 mg/dL Normal 74-99 [facility] Comment on above: Performed By: #### 2 4323-8 #### SHWETA ROCHA ([id number]) [facility] ([facility]) [address] [place] [address] 27673 Potassium [Moles/Vol] 5.5 mmol/L High 3.5-5.3 [facility] Comment on above: Performed By: #### 2 4323-8 #### SHWETA ROCHA (99608) [facility] ([facility]) [address] [place] [address] 20248 Protein [Mass/Vol] 7.6 g/dL Normal 6.4-8.2 [facility] Comment on above: Performed By: #### 2 4323-8 #### SHWETA ROCHA (43902) [facility] ([facility]) [address] [place] [address] 11696 Sodium [Moles/Vol] 138 mmol/L Normal 136-145 [facility] Comment on above: Performed By: #### 2 4323-8 #### SHWETA ROCHA (59532) [facility] ([facility] [address] [place] [address] Urea nitrogen [Mass/Vol] 11 mg/dL Normal 6-23 [facility] Comment on above: Performed By: #### 2 4323-8 #### SHWETA ROCHA (58774) [facility] ([facility]) [address] [place] [address] 58710 Ferritinon 04-01-2023 Ferritin [Mass/Vol] 77 ng/mL Normal 8-150 [facility] Comment on above: Performed By: #### 5 0023-1 #### JOLENE Cantu ([id number]) [facility] ([facility]) [address] [place] [address] HCV RNA panel LINDSEY+probeon HCV PCR QUANT [id number] IU/mL High Not detected [facility] Comment on [...] the Molecular Diagnostic Laboratory, Department of Pathology, [facility]. Performed By: #### 5 0023-1 #### JOLENE Cantu (98448) [facility] ([facility]) [address] [place] [address] HCV PCR W/GENOTYPE REFLEX ORDERED Aliquot sent to Genetics Lab for genotyping Normal [facility] Comment on above: Order Comment: Repor table Range: 15-100,000,000 IU/mL. The javier HCV is an in vitro nucleic acid amplification test for both the detection and quantitation of hepatitis C virus (HCV) RNA, in human EDTA plasma or serum, of HCV antibody positive or HCV-infected individuals on the javier PlayData0/8800 Systems. Dual probes are used to detect [...] the Molecular Diagnostic Laboratory, Department of Pathology, [facility]. Performed By: #### 5 0023-1 #### JOLENE Cantu (96204) [facility] ([facility]) [address] [place] [address] HCV RNA RESULT Detected Abnormal Not detected [facility] Comment on above: Order Comment: Repor table Range: 15-100,000,000 IU/mL. The javier HCV is an in vitro nucleic acid amplification test for both the detection and quantitation of hepatitis C virus (HCV) RNA, in human EDTA plasma or serum, of HCV antibody positive or HCV-infected individuals on the javier PlayData0/8800 Systems. Dual probes are used to detect [...] the Molecular Diagnostic Laboratory, Department of Pathology, [facility]. Performed By: #### 5 0023-1 #### JOLENE Cantu (48745) [facility] ([facility]) [address] [place] [address] HCV RNA, PCR LOG 7.24 Log IU/mL Normal [facility] Comment on above: Order Comment: Repor table Range: 15-100,000,000 IU/mL. The javier HCV is an in vitro nucleic acid amplification test for both the detection and quantitation of hepatitis C virus (HCV) RNA, in human EDTA plasma or serum, of HCV antibody positive or HCV-infected individuals on the javier PlayData0/8800 Systems. Dual probes are used to detect [...] the Molecular Diagnostic Laboratory, Department of Pathology, [facility]. Performed By: #### 5 0023-1 #### JOLENE Cantu ([id number]) [facility] ([facility]) [address] [place] [address] HCV genotype Sequencing Nomo n 04-01-2023 ELECTRONICALLY SIGNED BY Stephen Nguyen MD PhD [facility] Comment on above: Performed By: #### 5 902-2 #### JOLENE Cantu ([id number]) [facility] ([facility]) [address] [place] [address] HEPATITIS C INTERPRETATION INTERPRETATION [facility] Comment on above: Performed By: #### 5 902-2 #### JOLENE Cantu (03306) [facility] ([facility]) [address] [place] [address] HIV 1+2 Ab+HIV1 p24 Agon HIV 1+2 Ab+HIV1 p24 Ag IA Ql Non-Reactive Normal Nonreactive [facility] Comment on above: Order Comment: HIV A g/Ab screen is performed using the Siemens Malesbanget HIV Ag/Ab Combo assay which detects the presence of HIV p24 antigen as well as antibodies to HIV-1 (Group M and O) and HIV-2. No laboratory evidence of HIV infection. If acute HIV infection is suspected, consider testing for HIV RNA by PCR (viral load). Performed By: #### 5 6888-1 #### JOLENE Cantu (81986) [facility] ([facility]) [address] [place] [address] Hepatitis A virus Abon 04-01 HAV Ab IA Ql (S) Reactive Abnormal Nonreactive [facility] Comment on above: Order Comment: Repor table Range: 15-100,000,000 IU/mL. The javier HCV is an in vitro nucleic acid amplification test for both the detection and quantitation of hepatitis C virus (HCV) RNA, in human EDTA plasma or serum, of HCV antibody positive or HCV-infected individuals on the javier PlayData0/8800 Systems. Dual probes are used to detect [...] the Molecular Diagnostic Laboratory, Department of Pathology, [facility]. Performed By: #### 5 0023-1 #### JOLENE Cantu (52459) [facility] ([facility]) [address] [place] [address] Hepatitis B virus core Abon 04-01-2023 HBV core Ab Ql (S) Non-Reactive Normal Nonreactive [facility] Comment on above: Order Comment: Repor [...] the Molecular Diagnostic Laboratory, Department of Pathology, [facility]. Performed By: #### 5 0023-1 #### JOLENE Cantu ([id number]) [facility] ([facility]) [address] [place], [place] [address] Hepatitis B virus surface Ab on 04-01-2023 HBV surface Ab Qn (S) <3.1 Normal <10.0 [facility] Comment on above: Result Comment: Inte rpretive Criteria: <10 mIU/mL Nonreactive >=10 mIU/mL Reactive Biotin interference may cause falsely decreased results. Patients taking a Biotin dose of up to 5 mg/day should refrain from taking Biotin for 24 hours before sample collection. Providers may contact their local laboratory for further information. Performed By: #### 5 0023-1 #### JOLENE Cantu (49996) [facility] ([facility]) [address] [place], [place] [address] Hepatitis B virus surface Ag on 04-01-2023 HBV surface Ag IA Ql Non-Reactive Normal Nonreactive [facility] Comment on above: Result Comment: Biot in interference may cause falsely decreased results. Patients taking a Biotin dose of up to 5 mg/day should refrain from taking Biotin for 24 hours before sample collection. Providers may contact their local laboratory for further information. Performed By: #### 5 0023-1 #### JOLENE Cantu ([id number]) [facility] ([facility]) [address] [place] [address] Hepatitis C virus genotypeon 04-01-2023 HCV genotype Sequencing Nom Genotype 1a Normal Genotypes: 1, 1a, 1b, 1c, 1d, 1e, 1g, 1h, 1i, 1j, 1k, 1l, 1m, 1n, 2, 2a, 2b, 3, 3a, 3b, 3d, 3e, 3g, 3h, 3i, 3k, 4, 4a, 4b, 5, 5a, 6, 6a, 6b [facility] Comment on above: Performed By: #### 5 902-2 #### JOLENE Cantu (52908) [facility] ([facility]) [address] [place] [address] 73724 Iron and Iron binding capaci ty panelon 04-01-2023 Iron [Mass/Vol] 119 ug/dL Normal 35-150 [facility] Comment on above: Performed By: #### 5 0190-8 #### SHWETA ROCHA (31130) [facility] ([facility]) [address] [place] [address] 62448 Iron binding capacity [Mass/Vol] 465 ug/dL High 240-445 [facility] Comment on above: Performed By: #### 5 0190-8 #### SHWETA ROCHA (98869) [facility] ([facility]) [address] [place] [address] 86184 Iron binding capacity.unsaturated [Mass/Vol] 346 ug/dL Normal 110-370 [facility] Comment on above: Performed By: #### 5 0190-8 #### SHWETA ROCHA (62836) [facility] ([facility]) [address] [place] [address] [place] [address] Iron saturation [Mass fraction] 26 % Normal 25-45 [facility] Comment on above: Performed By: #### 5 0190-8 #### SHWETA ROCHA (16026) [facility] ([facility]) [address] [place] [address] Mitochondria Abon 04-01-2023 Mitochondria Ab IF Ql (S) Negative Normal Negative [facility] Comment on above: Performed By: #### 5 0023-1 #### JOLENE Cantu (59703) [facility] ([facility]) [address] [place] [address] 77615 Nuclear Abon 04-01-2023 Nuclear Ab Hep2 substrate Ql (S) Negative Normal Negative [facility] Comment on above: Result Comment: The Antinuclear Antibody (BEATRIZ) test was performed using indirect immunofluorescence assay with HEp-2 cells slide. Performed By: #### 5 0023-1 #### JOLENE Cantu ([id number]) [facility] ([facility]) [address] [place] [address] 68202 PHOSPHATIDYLETHANOL (PETH), WHOLE BLOOD, QUANTITATIVEon 04-01-2023 Laboratory report See Note Normal [facility] Comment on above: Result Comment: Auth orized individuals can access the [facility] Enhanced Report using the following link: [email or web address] Performed By: #### 5 902-2 #### JOLENE Cantu (77373) [facility] ([facility]) [address] [place] [address] 31111 PETH INTERPRETATION See Note Normal [facility] Comment on above: Result Comment: Phos [...] developed and its performance characteristics determined by [facility]. It has not been cleared or approved by the U.S. Food and Drug Administration. This test was performed in a CLIA-certified laboratory and is intended for clinical purposes. Performed By: [facility] [address] [place] [address] Assisted Living Coordinator: Miki Neal MD, PhD CLIA Number: [id number] Performed By: #### 5 902-2 #### JOLENE Cantu (97653) [facility] ([facility]) [address] [place] [address] 20841 Phosphatidylethanol 16:0-18:1 <10 [facility] Comment on above: Result Comment: PEth 16:0/18:1 (POPEth) Less than 10 ng/mL............Not detected Less than 20 ng/mL............Abstinence or light alcohol consumption 20 - 200 ng/mL................Moderate alcohol consumption Greater than 200 ng/mL........Heavy alcohol consumption or chronic alcohol use (Reference: Enrike Mirza and Noé Dan 2018 J. Forensic Sci) Performed By: #### 5 902-2 #### JOLENE Cantu (19573) [facility] ([facility]) [address] [place] [address] 07138 Phosphatidylethanol 16:0-18:2 <10 [facility] Comment on above: Result Comment: Refe rence ranges are not well established. Performed By: #### 5 902-2 #### JOLENE Cantu (48157) [facility] ([facility]) [address] [place] [address] 07915 PT Coag (PPP) [Time]on 04-01 INR Coag (PPP) [Relative time] 0.9 Normal 0.9-1.1 [facility] Comment on above: Performed By: #### 5 902-2 #### JOLENE Cantu (36654) [facility] ([facility]) [address] [place] [address] 80726 Smooth muscle Abon 4 Smooth muscle Ab IF Ql (S) Negative Normal Negative [facility] Comment on above: Performed By: #### 5 0023-1 #### JOLENE Cantu ([id number]) [facility] ([facility]) [address] [place] [address] 90743 Consent for Treatmenton Consent for Treatment [id number]#1.00T IFF Normal [facility] Discharge Instructionson Discharge Instructions [id number]#1.00 TIFF Normal [facility] ED Clinical Summaryon 2023 ED Clinical Summary Normal [facility] ED Note-Physicianon 03-26-19 ED Note-Physician Normal [facility] Comment on above: Result Comment: Elec tronically Signed By: Jorge Mcintosh DO\.br\Date and Time Signed: 03/26/23 12:29 EST ED Patient Education Noteon 03-26-2023 ED Patient Education Note Normal [facility] ED Patient Summaryon 024 ED Patient Summary Normal [facility] Consent for Treatmenton 02-24 Consent for Treatment [id number] IFF Normal [facility] Discharge Instructionson Discharge Instructions [id number]#1.00 TIFF Normal [facility] ED Clinical Summaryon 2022 ED Clinical Summary Normal [facility] ED Note-Physicianon 03-23-20 ED Note-Physician Normal [facility] Comment on above: Result Comment: Elec tronically Signed By: Landon Tidwell PA-C.br\Date and Time Signed: 03/23/23 13:46 EST\.br\Electronically Co-Signed By: Nikhil Tubbs DO\.br\Date and Time Co-Signed: 03/23/23 15:51 EST ED Patient Education Noteon 03-23-2023 ED Patient Education Note Normal [facility] ED Patient Summaryon 023 ED Patient Summary Normal [facility] Consent for Treatmenton 02-23 Consent for Treatment [id number]#1.00T IFF Normal [facility] Discharge Instructionson Discharge Instructions [id number]#1.00 TIFF Normal [facility] ED Clinical Summaryon 2022 ED Clinical Summary Normal [facility] ED Note-Physicianon 03-20-20 ED Note-Physician Normal [facility] Comment on above: Result Comment: Elec tronically Signed By: Landon Tidwell PA-C\.br\Date and Time Signed: 03/20/23 13:40 EST\.br\Electronically Co-Signed By: Elisa Sánchez DO.br\Date and Time Co-Signed: 03/20/23 15:13 EST ED Patient Education Noteon 03-20-2023 ED Patient Education Note Normal [facility] ED Patient Summaryon 023 ED Patient Summary Normal [facility] Auto Diffon 03-11-2023 Basophils/100 WBC (Bld) 0.3 % Normal 0.0-2.0 [facility] Comment on above: Order Comment: Order Added by Discern Expert. Performed By: #### 1 5468640, 5306866, 1639828, 3575970, 3300737, 2106856 ####[address] [place] [address] Basophils/Leukocytes Auto (Bld) [Pure # fraction] 0.0 E9/L Normal 0.0-0.2 [facility] Comment on above: Order Comment: Order Added by Discern Expert. Performed By: #### 1 3977505, 8521653, 6714519, 8017807, 2074991, 1653929 ####[address] [address] Eosinophils/100 WBC (Bld) 5.6 % Normal 0.0-8.0 [facility] Comment on above: Order Comment: Order Added by Discern Expert. Performed By: #### 1 0439308, 6617658, 4051723, 3737525, 2126107, 7806327 ####[address] [address] Eosinophils/Leukocytes Auto (Bld) [Pure # fraction] 0.3 E9/L Normal 0.0-0.5 [facility] Comment on above: Order Comment: Order Added by Discern Expert. Performed By: #### 1 8630130, 8127957, 6910324, 9940328, 3258623, 7227141 ####[address] [address] Lymphocytes/100 WBC (Bld) 28.4 % Normal 14.0-50.0 [facility] Comment on above: Order Comment: Order Added by Discern Expert. Performed By: #### 1 1837903, 4539407, 4858885, 9498709, 9288215, 9038063 ####[address] [place] [address] Lymphocytes/Leukocytes Auto (Bld) [Pure # fraction] 1.8 E9/L Normal 1.0-4.0 [facility] Comment on above: Order Comment: Order Added by Discern Expert. Performed By: #### 1 9110514, 2586527, 3740447, 5749647, 2251291, 6710037 ####[address] [address] Monocytes/100 WBC (Bld) 9.4 % Normal 4.0-14.0 [facility] Comment on above: Order Comment: Order Added by Discern Expert. Performed By: #### 1 6204588, 9787215, 6545303, 4980580, 0134280, 4339800 ####[address] [place] [address] Monocytes/Leukocytes Auto (Bld) [Pure # fraction] 0.6 E9/L Normal 0.2-1.0 [facility] Comment on above: Order Comment: Order Added by Discern Expert. Performed By: #### 1 1132712, 4812298, 8033276, 1572647, 2129273, 6892249 ####[address] [place] [address] Neutrophils/100 WBC (Bld) 56.3 % Normal 36.0-75.0 [facility] Comment on above: Order Comment: Order Added by Discern Expert. Performed By: #### 1 1721123, 2214093, 7986790, 3146657, 4097068, 3217900 ####[address] [place] [address] Neutrophils/Leukocytes Auto (Bld) [Pure # fraction] 3.5 E9/L Normal 2.0-7.5 [facility] Comment on above: Order Comment: Order Added by Discern Expert. Performed By: #### 1 7261718, 5846335, 9562177, 2546377, 5040933, 1397503 ####[facility] [address] [place] [address] BMPon 03-11-2023 Anion gap [Moles/Vol] 9 mmol/L Normal 6-16 [facility] Comment on above: Performed By: #### 1 2608786, 2957836, 6239322, 6012311, 0920332, 0857251 ####[facility] [address] [place] [address] BUN/Creat Ratio 13 No Units Normal 10-20 [facility] Comment on above: Performed By: #### 1 4826494, 9384667, 0014039, 0311040, 4898172, 9345680 ####[facility] [address] [place] [address] Calcium [Mass/Vol] 8.5 mg/dL Low 8.9-11.1 [facility] Comment on above: Performed By: #### 1 6428471, 7452018, 3356404, 4733216, 5747415, 7997288 ####[facility] [address] [place] [address] Chloride [Moles/Vol] 105 mmol/L Normal 101-111 [facility] Comment on above: Performed By: #### 1 0323332, 6127147, 4031302, 5300094, 9902034, 0250407 ####[facility] [address] [place] [address] CO2 [Moles/Vol] 27 mmol/L Normal 21-31 [facility] Comment on above: Performed By: #### 1 8300782, 2606805, 9722662, 3088188, 0480788, 3850921 ####[facility] [address] [place] [address] Creatinine [Mass/Vol] 0.7 mg/dL Normal 0.5-1.3 [facility] Comment on above: Performed By: #### 1 5254302, 4612820, 2496017, 9308225, 7265223, 9186670 ####[facility] [address] [place] [address] Glucose [Mass/Vol] 104 mg/dL Normal 55-199 [facility] Comment on above: Performed By: #### 1 7850001, 7299039, 4705275, 6744356, 0662906, 9504542 ####[facility] [address] [place] [address] Potassium [Moles/Vol] 4.0 mmol/L Normal 3.5-5.3 [facility] Comment on above: Performed By: #### 1 2627544, 2615650, 1876692, 1081966, 1748491, 2910599 ####[facility] [address] [place] [address] Sodium [Moles/Vol] 137 mmol/L Normal 135-145 [facility] Comment on above: Performed By: #### 1 9394431, 8690348, 1229766, 3289202, 0437192, 1005439 ####[facility] [address] [place] [address] Urea nitrogen [Mass/Vol] 9 mg/dL Normal 5-21 [facility] Comment on above: Performed By: #### 1 9710283, 0834211, 7851598, 0520413, 4429407, 4568874 ####[facility] [address] [place] [address] CBC w/ Auto Diffon Erythrocyte distribution width (RBC) [Ratio] 13.1 % Normal 10.9-14.2 [facility] Comment on above: Performed By: #### 1 5192644, 3135834, 2426045, 4485967, 5633607, 7877464 ####[facility] [address] [place] [address] Hematocrit (Bld) [Volume fraction] 46.1 % High 34.0-46.0 [facility] Comment on above: Performed By: #### 1 9050069, 5904129, 8026511, 4133546, 0401307, 3707128 ####[facility] [address] [place] [address] Hemoglobin (Bld) [Mass/Vol] 15.4 g/dL Normal 12.0-16.0 [facility] Comment on above: Performed By: #### 1 8830378, 1476102, 0505043, 3976572, 2531827, 0466285 ####[facility] [address] [place] [address] MCH (RBC) [Entitic mass] 32.0 pg Normal 27.0-34.0 [facility] Comment on above: Performed By: #### 1 7888625, 9129005, 3629653, 3601873, 8527196, 8271954 ####[address] [place] [address] MCHC (RBC) [Mass/Vol] 33.5 g/dL Normal 31.4-36.0 [facility] Comment on above: Performed By: #### 1 5136262, 3403878, 3479055, 5269809, 7196410, 4150942 ####[address] [address] MCV (RBC) [Entitic vol] 95.7 fL Normal 80.0-100.0 [facility] Comment on above: Performed By: #### 1 6834945, 3454886, 8298801, 4715081, 1539016, 0290725 ####[address] [address] Platelet mean volume (Bld) [Entitic vol] 9.0 fL Normal 6.4-10.8 [facility] Comment on above: Performed By: #### 1 5836296, 2998428, 1756648, 7715360, 5908812, 4782655 ####[address] [address] Platelets (Bld) [#/Vol] 248.0 E9/L Normal 150.0-500.0 [facility] Comment on above: Performed By: #### 1 1088587, 0368926, 0196674, 2936828, 3840740, 4526512 ####[address] [address] RBC (Bld) [#/Vol] 4.8 E12/L Normal 4.3-5.9 [facility] Comment on above: Performed By: #### 1 9764452, 6947418, 1037565, 7717825, 1991259, 4628887 ####[address] [address] WBC corrected for nucl RBC Auto (Bld) [#/Vol] 6.2 E9/L Normal 4.0-11.0 [facility] Comment on above: Performed By: #### 1 1343994, 9377641, 9267713, 8840995, 9211409, 7135303 ####[facility] [address] [place] [address] CHEMISTRYOrdered By: SYSTEM SYSTEM on 03-11-2023 Albumin [Mass/Vol] 4.1 g/dL Normal 3.3 - 5.0 gm/dL Rem[facility] Chem Albumin/Globulin [Mass ratio] 1.4 {ratio} Normal 1.1 - 2.2 [facility] Alk Phos 68 [iU]/d Normal 21 - 98 Int._Unit/L Remisol Chem ALT 66 [iU]/d High 6 - 46 Int._Unit/L [facility] Anion gap [Moles/Vol] 9 mmol/L Normal 6 - 16 mEq/L R emisol Chem AST 51 [iU]/d High 5 - 43 Int._Unit/L [facility] Bili Direct 0.2 mg/dL Normal 0.1 - 0.4 mg/dL [facility] Bili Indirect 0.4 mg/dL Normal 0.1 - 0.9 mg/dL [facility] Bili Total 0.6 mg/dL Normal 0.0 - 1.1 mg/dL [facility] Calcium [Mass/Vol] 8.5 mg/dL Low 8.9 - 11. 1 mg/dL [facility] Chloride [Moles/Vol] 105 mmol/L Normal 101 - 1 11 mmol/L [facility] CO2 [Moles/Vol] 27 mmol/L Normal 21 - 31 mmol/L [facility] Creatinine [Mass/Vol] 0.7 mg/dL Normal 0.5 - 1.3 mg/dL [facility] eGFR mL/min/1.73 m2 Normal >=59mL/min/1 .73 m2 [facility] Globulin (S) [Mass/Vol] 3.0 g/dL Normal 1.4 - 4.0 gm/dL Remisol Chem Glucose [Mass/Vol] 104 mg/dL Normal 55 - 199 mg/dL Remisol Chem Lipase Lvl 15 unit/L Normal 13 - 58 unit/L Remisol Chem Potassium [Moles/Vol] 4.0 mmol/L Normal 3.5 - 5.3 mmol/L Remisol Chem Protein [Mass/Vol] 7.1 g/dL Normal 6.0 - 7.8 gm/dL Remisol Chem Sodium [Moles/Vol] 137 mmol/L Normal 135 - 145 mmol/L Remisol Chem Urea nitrogen [Mass/Vol] 9 mg/dL Normal 5 - 21 mg/dL Remisol Chem Urea nitrogen/Creatinine [Mass ratio] 13 mg/mg Normal 10 - 20 Remisol Chem Consent for Treatmenton 02-22 Consent for Treatment [id number]#1.00T IFF Normal [facility] Discharge Instructionson Discharge Instructions [id number]#1.00 TIFF Normal [facility] ED Clinical Summaryon 2022 ED Clinical Summary Normal [facility] ED Note-Physicianon 03-11-20 ED Note-Physician Normal [facility] Comment on above: Result Comment: Elec tronically Signed By: Jorge Mcintosh DO\.br\Date and Time Signed: 03/11/23 10:39 EST ED Patient Education Noteon 03-11-2023 ED Patient Education Note Normal [facility] ED Patient Summaryon 023 ED Patient Summary Normal [facility] HEMATOLOGYOrdered By: SYSTEM SYSTEM on 03-11-2023 Basophils/100 WBC (Bld) 0.3 % Normal 0.0 - 2.0 % [facility] Basophils/Leukocytes Auto (Bld) [Pure # fraction] 0.0 E9/L Normal 0.0 - 0.2 E9/L [facility] Eosinophils/100 WBC (Bld) 5.6 % Normal 0.0 - 8.0 % [facility] Eosinophils/Leukocytes Auto (Bld) [Pure # fraction] 0.3 E9/L Normal 0.0 - 0.5 E9/L [facility] Lymphocytes/100 WBC (Bld) 28.4 % Normal 14.0 - 50.0 % [facility] Lymphocytes/Leukocytes Auto (Bld) [Pure # fraction] 1.8 E9/L Normal 1.0 - 4.0 E9/L [facility] Monocytes/100 WBC (Bld) 9.4 % Normal 4.0 - 14.0 % [facility] Monocytes/Leukocytes Auto (Bld) [Pure # fraction] 0.6 E9/L Normal 0.2 - 1.0 E9/L [facility] Neutrophils/100 WBC (Bld) 56.3 % Normal 36.0 - 75.0 % [facility] Neutrophils/Leukocytes Auto (Bld) [Pure # fraction] 3.5 E9/L Normal 2.0 - 7.5 E9/L [facility] HEMATOLOGYOrdered By: Radha finn on 03-11-2023 Erythrocyte distribution width (RBC) [Ratio] 13.1 % Normal 10.9 - 14.2 % [facility] Hematocrit (Bld) [Volume fraction] 46.1 % High 34.0 - 46.0 % [facility] Hemoglobin (Bld) [Mass/Vol] 15.4 g/dL Normal 12.0 - 16.0 gm/dL [facility] MCH (RBC) [Entitic mass] 32.0 pg Normal 27.0 - 34.0 pg [facility] MCHC (RBC) [Mass/Vol] 33.5 g/dL Normal 31.4 - 36.0 gm/dL [facility] MCV (RBC) [Entitic vol] 95.7 fL Normal 80.0 - 100.0 fL [facility] Platelet mean volume (Bld) [Entitic vol] 9.0 fL Normal 6.4 - 10.8 fL [facility] Platelets (Bld) [#/Vol] 248.0 E9/L Normal 150.0 - 500.0 E9/L [facility] RBC (Bld) [#/Vol] 4.8 E12/L Normal 4.3 - 5.9 E12/L [facility] WBC corrected for nucl RBC Auto (Bld) [#/Vol] 6.2 E9/L Normal 4.0 - 11.0 E9/L [facility] Hep Func Panelon 03-11-2023 Albumin [Mass/Vol] 4.1 g/dL Normal 3.3-5.0 [facility] Comment on above: Performed By: #### 1 1190786, 8444155, 3565730, 0627971, 6478039, 5990970 ####[address] [place] [address] Albumin/Globulin [Mass ratio] 1.4 {ratio} Normal 1.1-2.2 [facility] Comment on above: Performed By: #### 1 3468355, 6832071, 5907910, 0181769, 0782103, 2600841 ####[address] [place] [address] Alk Phos 68 Int._Unit/L Normal 21-98 [facility] Comment on above: Performed By: #### 1 8582734, 0584198, 3401777, 5371275, 6856098, 1800809 ####[address] [address] ALT 66 Int._Unit/L High 6-46 [facility] Comment on above: Performed By: #### 1 1575090, 6498518, 3068010, 2979569, 9899809, 2622058 ####[address] [place] [address] AST 51 Int._Unit/L High 5-43 [facility] Comment on above: Performed By: #### 1 7527648, 0201882, 0951258, 2304387, 1866839, 8955891 ####[address] [place] [address] Bili Direct 0.2 mg/dL Normal 0.1-0.4 [facility] Comment on above: Performed By: #### 1 2124095, 5222199, 2471685, 3907931, 0432702, 3521853 ####[address] [place] [address] Bili Indirect 0.4 mg/dL Normal 0.1-0.9 [facility] Comment on above: Performed By: #### 1 0343766, 1941932, 2886233, 7440172, 2659331, 3263944 ####[facility] [address] [place] [address] Bili Total 0.6 mg/dL Normal 0.0-1.1 [facility] Comment on above: Performed By: #### 1 2574819, 0983819, 7366192, 5817287, 2515009, 2599165 ####[facility] [address] [place] [address] Globulin (S) [Mass/Vol] 3.0 g/dL Normal 1.4-4.0 [facility] Comment on above: Performed By: #### 1 9416031, 6905195, 3181173, 7115110, 7897293, 8157217 ####[address] [place] [address] Protein [Mass/Vol] 7.1 g/dL Normal 6.0-7.8 [facility] Comment on above: Performed By: #### 1 0411568, 9858949, 0832209, 3785886, 7726634, 7293521 ####[facility] [address] [place] [address] Lipase Levelon 03-11-2023 Lipase Lvl 15 unit/L Normal 13-58 [facility] Comment on above: Performed By: #### 1 0417596, 1275575, 4045701, 4231646, 2143974, 5407203 ####[address] [address] MICRO OTHER TESTSOrdered By: Cheyanne Rosas on 03-11-2023 Rapid COV Int NEG Ctl Pass (03/11/23 9:34 AM) Normal [facility] Man Sero Rapid COV Int POS Ctl Pass (03/11/23 9:34 AM) Normal [facility] Sero SARS-CoV+SARS-CoV-2 (COVID-19) Ag IA.rapid Ql (Resp) Not Detected 1 (03/11/23 9:34 AM) Normal Not Detected [facility] Sero Comment on above: Interpretive Data: T ned Branch Veritor System for Rapid Detection of SARS-CoV-2 [...] Rapid COV Int NEG Ctl Pass Normal [facility] Comment on above: Performed By: #### 2 [id number] ####[facility] [address] [place] [address] Rapid COV Int POS Ctl Pass Normal [facility] Comment on above: Performed By: #### 2 [id number] ####[address] [place] [address] SARS-CoV+SARS-CoV-2 (COVID-19) Ag IA.rapid Ql (Resp) Not detected Normal Not Detected [facility] Comment on above: Result Comment: The Branch Veritor? System for Rapid Detection of SARS-CoV-2 [...] or revoked sooner. Performed By: #### 2 [id number] ####[facility] [address] [place] [address] eGFRon 03-11-2023 GFR/1.73 sq M.predicted among non-blacks MDRD (S/P/Bld) [Vol rate/Area] mL/min/{1.73_m2} Normal >=59 [facility] Comment on above: Order Comment: Order added by Discern Expert. Performed By: #### 1 5365162, 4547281, 7409476, 9234061, 5073248, 6545002 ####[facility] [address] [place] [address] US Liver limitedon 3 No focal intrahepati c lesions noted. The patient is status post cholecystectomy. MACRO: None Signed by: Harshad Tran 02/14/2023 7:30 AM Dictation workstation: [id number] [facility] Interpreted By: Harshad Tran, STUDY: US ABDOMEN LIMITED LIVER; 02/13/2023 7:27 am INDICATION: Signs/Symptoms:Hx of Hep C. COMPARISON: None. ACCESSION NUMBER(S): [id number] ORDERING CLINICIAN: ANTONIO HUSAIN TECHNIQUE: Multiple images [...] No hydronephrosis or renal calculi are seen. MMODAL Harshad Tran MD - 02/14/2023 Interpreted By: Harshad Tran, STUDY: US ABDOMEN LIMITED LIVER; 02/13/2023 7:27 am INDICATION: Signs/Symptoms:Hx of Hep C. COMPARISON: None. ACCESSION NUMBER(S): [id number] ORDERING CLINICIAN: ANTONIO HUSAIN TECHNIQUE: Multiple images [...] Harshad Tran 02/14/2023 7:30 AM Dictation workstation: [id number] [facility] Work Phone: US Liver limitedOrdered By: Harshad Tran on 02-14-2023 [facility] Work Phone: HCV RNA panel LINDSEY+probeon HCV RNA LINDSEY+probe [Log units/Vol] 7.46 Log IU/mL Normal [facility] Comment on above: Order Comment: Repor table Range: 15-100,000,000 IU/mL. The javier HCV is an in vitro nucleic acid amplification test for both the detection and quantitation of hepatitis C virus (HCV) RNA, in human EDTA plasma or serum, of HCV antibody positive or HCV-infected individuals on the javier PlayData0/8800 Systems. Dual probes are used to detect [...] the Molecular Diagnostic Laboratory, Department of Pathology, [facility]. Performed By: #### 5 0023-1 #### JOLENE Cantu ([id number]) [facility] ([facility]) [address] [place] [address] HCV RNA LINDSEY+probe Qn Detected Abnormal Not detected [facility] Comment on above: Order Comment: Repor table Range: 15-100,000,000 IU/mL. The javier HCV is an in vitro nucleic acid amplification test for both the detection and quantitation of hepatitis C virus (HCV) RNA, in human EDTA plasma or serum, of HCV antibody positive or HCV-infected individuals on the javier PlayData0/8800 Systems. Dual probes are used to detect [...] the Molecular Diagnostic Laboratory, Department of Pathology, [facility]. Performed By: #### 5 0023-1 #### JOLENE Cantu ([id number]) [facility] ([facility]) [address] [place] [address] Hepatitis C virus Abon 02-13 HCV Ab Ql (S) Reactive Abnormal Nonreactive [facility] Comment on above: Result Comment: HCV antibody detected. HCV RNA PCR has been ordered to evaluate the possibility of a current infection. Results from patients taking biotin supplements or receiving high-dose biotin therapy should be interpreted with caution due to possible interference with this test. Providers may contact their local laboratory for further information. Performed By: #### 1 6128-1 #### JOLENE Cantu ([id number]) [facility] ([facility]) [address] [place] [address] US ABDOMEN LIMITED LIVERon 1 04-15-2022 US ABDOMEN LIMITED LIVER Interpreted By: Harshad Tran, STUDY: US ABDOMEN LIMITED LIVER; 02/13/2023 7:27 am INDICATION: Signs/Symptoms:Hx of Hep C. COMPARISON: None. ACCESSION NUMBER(S): [id number] ORDERING CLINICIAN: ANTONIO HUSAIN TECHNIQUE: Multiple images [...] Harshad Tran 02/14/2023 7:30 AM Dictation workstation: [id number] Normal [facility] US Liver limitedon 3 Radiology Study observation (narrative) [facility] Work Phone: Consent for Treatmenton 01-24 Consent for Treatment [id number]#1.00T IFF Normal [facility] Discharge Instructionson Discharge Instructions [id number]#1.00T IFF Normal [facility] ED Clinical Summaryon 2022 ED Clinical Summary Normal [facility] ED Note-Physicianon 02-13-20 ED Note-Physician Normal [facility] Comment on above: Result Comment: Elec tronically Signed By: Pedro Pablo Fletcher DO\.br\Date and Time Signed: 02/12/23 20:43 EST ED Patient Education Noteon 02-12-2023 ED Patient Education Note Normal [facility] ED Patient Summaryon 023 ED Patient Summary Normal [facility] ED Note-Physicianon 02-09-20 ED Note-Physician Normal [facility] Comment on above: Result Comment: Elec tronically Signed By: Elisa Sánchez DO\.br\Date and Time Signed: 02/08/23 00:49 EST Consent for Treatmenton 01-23 Consent for Treatment [id number]#1.00T IFF Normal [facility] Discharge Instructionson Discharge Instructions [id number]#1.00 TIFF Normal [facility] ED Clinical Summaryon 2022 ED Clinical Summary Normal [facility] ED Patient Education Noteon 02-07-2023 ED Patient Education Note Normal [facility] ED Patient Summaryon 023 ED Patient Summary Normal [facility] ED Note-Physicianon 02-05-20 ED Note-Physician Normal [facility] Comment on above: Result Comment: Elec tronically Signed By: Robert Taylor PA-C\.br\Date and Time Signed: 01/29/23 12:25 EST\.br\Electronically Co-Signed By: Jorge Mcintosh DO\.br\Date and Time Co-Signed: 02/04/23 07:04 EST Consent for Treatmenton -0 Consent for Treatment [id number]#1.00T IFF Normal [facility] Discharge Instructionson Discharge Instructions [id number]#1.00 TIFF Normal [facility] ED Clinical Summaryon 2022 ED Clinical Summary Normal [facility] ED Patient Education Noteon 01-29-2023 ED Patient Education Note Normal [facility] ED Patient Summaryon 023 ED Patient Summary Normal [facility] Consent for Treatmenton 12-25 Consent for Treatment [id number]#1.00T IFF Normal [facility] Discharge Instructionson Discharge Instructions [id number]#1.00 TIFF Normal [facility] ED Clinical Summaryon 2022 ED Clinical Summary Normal [facility] ED Note-Physicianon 01-23-20 ED Note-Physician Normal [facility] Comment on above: Result Comment: Elec tronically Signed By: Landon Tidwell PA-C\.br\Date and Time Signed: 01/22/23 20:05 EDT\.br\Electronically Co-Signed By: Pedro Pablo Fletcher DO\.br\Date and Time Co-Signed: 01/22/23 20:44 EDT ED Patient Education Noteon 01-22-2023 ED Patient Education Note Normal [facility] ED Patient Summaryon 023 ED Patient Summary Normal [facility] Drugs of abuse screen W Refl ex confirm panel (U)on 01-15-2023 Amphetamines Screen Ql (U) Negative Normal Presumptive Negative [facility] Comment on above: Order Comment: Drug [...] propranolol. Performed By: #### 8 7428-9 #### GIOVANNI BURNETT ([id number]) [facility] ([facility]) [address] [place] [address] Barbiturates Screen Ql (U) Negative Normal Presumptive Negative [facility] Comment on above: Order Comment: Drug [...] By: #### 8 7428-9 #### GIOVANNI BURNETT ([id number]) [facility] ([facility]) [address] [place] [address] Benzodiazepines Ql (U) Negative Normal Presu mptive Negative [facility] Comment on above: Order Comment: Drug [...] By: #### 8 7428-9 #### GIOVANNI BURNETT ([id number]) [facility] ([facility]) [address] [place] [address] Benzoylecgonine Screen Ql (U) Negative Normal Presumptive Negative [facility] Comment on above: Order Comment: Drug [...] By: #### 8 7428-9 #### GIOVANNI BURNETT ([id number]) [facility] ([facility]) [address] [place] [address] Cannabinoids Screen Ql (U) Negative Normal Presumptive Negative [facility] Comment on above: Order Comment: Drug [...] NG/ML Performed By: #### 8 7428-9 #### IGOVANNI BURNETT ([id number]) [facility] ([facility]) [address] [place] [address] fentaNYL+Norfentanyl Screen Ql (U) Negative Normal Presumptive Negative [facility] Comment on above: Order Comment: Drug [...] By: #### 8 7428-9 #### GIOVANNI BURNETT ([id number]) [facility] ([facility]) [address] [place] [address] Opiates Screen Ql (U) Positive Abnormal Presum ptive Negative [facility] Comment on above: Order Comment: Drug [...] By: #### 8 7428-9 #### GIOVANNI BURNETT ([id number]) [facility] ([facility]) [address] [place] [address] oxyCODONE+oxyMORphone Screen Ql (U) Negative Normal Presumptive Negative [facility] Comment on above: Order Comment: Drug [...] By: #### 8 7428-9 #### GIOVANNI BURNETT ([id number]) [facility] ([facility]) [address] [place] [address] Phencyclidine Ql (U) Negative Normal Presump tive Negative [facility] Comment on above: Order Comment: Drug [...] dextromethorphan. Performed By: #### 8 7428-9 #### DAVILA LEX ([id number]) [facility] ([facility]) [address] [place] [address] Opiates Confirm (U) [Mass/Vo l]on 01-15-2023 6-Monoacetylmorphine (6-PERLITA) Confirm (U) [Mass/Vol] <25 Normal <25 [facility] Comment on above: Order Comment: The [...] By: #### 1 7384-9 #### JOLENE Cantu ([id number]) [facility] ([facility]) [address] [place] [address] Codeine Confirm (U) [Mass/Vol] <50 Normal <50 [facility] Comment on above: Order Comment: The [...] #### 1 7384-9 #### JOLENE RONQUILLO L ([id number]) [facility] ([facility]) [address] [place] [address] HYDROcodone cutoff Confirm (U) [Mass/Vol] <25 Normal <25 [facility] Comment on above: Order Comment: The [...] By: #### 1 7384-9 #### JOLENE Cantu ([id number]) [facility] ([facility]) [address] [place] [address] HYDROmorphone Confirm (U) [Mass/Vol] <25 Normal <25 [facility] Comment on above: Order Comment: The [...] By: #### 1 7384-9 #### JOLENE Cantu ([id number]) [facility] ([facility]) [address] [place] [address] Morphine Confirm (U) [Mass/Vol] 207 ng/mL High <50 [facility] Comment on above: Order Comment: The [...] By: #### 1 7384-9 #### JOLENE Cantu ([id number]) [facility] ([facility]) [address] [place] [address] Norhydrocodone Confirm (U) [Mass/Vol] <25 Normal <25 [facility] Comment on above: Order Comment: The [...] By: #### 1 7384-9 #### JOLENE Cantu ([id number]) [facility] ([facility]) [address] [place] [address] Noroxycodone Confirm (U) [Mass/Vol] 711 ng/mL High <25 [facility] Comment on above: Order Comment: The [...] By: #### 1 7384-9 #### JOLENE Cantu ([id number]) [facility] ([facility]) [address] [place] [address] oxyCODONE Confirm (U) [Mass/Vol] 63 ng/mL High <25 [facility] Comment on above: Order Comment: The [...] By: #### 1 7384-9 #### JOLENE Cantu ([id number]) [facility] ([facility]) [address] [place] [address] oxyMORphone Confirm (U) [Mass/Vol] <25 Normal <25 [facility] Comment on above: Order Comment: The [...] By: #### 1 7384-9 #### JOLENE Cantu ([id number]) [facility] ([facility]) [address] [place] [address] Consent for Treatmenton 12-24 Consent for Treatment [id number]#1.00T IFF Normal [facility] Discharge Instructionson Discharge Instructions [id number]#1.0 0TIFF Normal [facility] ED Clinical Summaryon 2022 ED Clinical Summary Normal [facility] ED Note-Physicianon 01-15-20 ED Note-Physician Normal [facility] Comment on above: Result Comment: Elec tronically Signed By: Eden Salomon\.br\Date and Time Signed: 01/14/23 15:35 EDT\.br\Electronically Co-Signed By: Jorge Mcintosh DO\.br\Date and Time Co-Signed: 01/14/23 15:43 EDT ED Patient Education Noteon 01-14-2023 ED Patient Education Note Normal [facility] ED Patient Summaryon 023 ED Patient Summary Normal [facility] ED Note-Physicianon 01-14-20 ED Note-Physician Normal [facility] Comment on above: Result Comment: Elec tronically Signed By: Balbina Bryant M.D.\.br\Date and Time Signed: 01/13/23 01:40 EDT XR Spine Lumbosacral 2 or 3 Viewson 01-13-2023 XR Spine Lumbosacral 2 or 3 Views Normal [facility] Consent for Treatmenton 12-24 Consent for Treatment [id number]#1.00T IFF Normal [facility] Discharge Instructionson Discharge Instructions [id number]#1.00T IFF Normal [facility] ED Clinical Summaryon 2022 ED Clinical Summary Normal [facility] ED Note-Nursingon 01-12-2023 ED Note-Nursing pt given d/c instructions and educated on importance of follow up. pt educated on new medication. pt verbalized understanding of instructions and readiness for d/c. pt was wheeled to her cousins car in stable condition. Normal [facility] ED Note-Nursing Normal [facility] ED Patient Education Noteon 01-12-2023 ED Patient Education Note Normal [facility] ED Patient Summaryon ED Patient Summary Normal [facility] Consent for Treatmenton 12-23 Consent for Treatment [id number]#1.00T [facility] Discharge Instructions[facility] Discharge Instructions [id number]#1.00T IFF Normal [facility] ED Clinical Summaryon 2022 ED Clinical Summary Normal [facility] ED Note-Physicianon 01-11-20 ED Note-Physician Normal [facility] Comment on above: Result Comment: Elec tronically Signed By: Nikhil Tubbs DO.br\Date and Time Signed: 01/10/23 11:50 EDT ED Patient Education Noteon 01-10-2023 ED Patient Education Note Normal [facility] ED Patient Summaryon 023 ED Patient Summary [facility] Spine Lumbar w/o Contrast on 01-05-2023 CT Spine Lumbar w/o Contrast Normal [facility] Discharge Instructionson Discharge Instructions [id number]#1.00 TIFF Normal [facility] ED Clinical Summaryon 2022 ED Clinical Summary Normal [facility] ED Note-Physicianon 01-06-20 ED Note-Physician Normal [facility] Comment on above: Result Comment: Elec tronically Signed By: Balbina Bryant M.D.br\Date and Time Signed: 01/05/23 00:31 EDT ED Patient Education Noteon 01-05-2023 ED Patient Education Note Normal [facility] ED Patient Summaryon 023 ED Patient Summary Normal [facility] RAD - Preliminary Cat Scan R eporton 01-05-2023 RAD - Preliminary Cat Scan Report [id number]#1.00 TIFF Normal [facility] XR Hip 2-3 Views Left + Pelv kavin 01-05-2023 XR Hip 2-3 Views Left + Pelvis Normal [facility] Consent for Treatmenton 12-23 Consent for Treatment [id number]#1.00T IFF Normal [facility] Consent for Treatmenton 12-23 Consent for Treatment [id number]#1.00T IFF Normal [facility] Discharge Instructionson Discharge Instructions [id number]#1.00 TIFF Normal [facility] ED Clinical Summaryon 2022 ED Clinical Summary Normal [facility] ED Note-Physicianon 01-03-20 ED Note-Physician Normal [facility] Comment on above: Result Comment: Elec tronically Signed By: Landon Tidwell PA-C.br\Date and Time Signed: 01/02/23 18:55 EDT\.br\Electronically Co-Signed By: Nikhil Tubbs DO\Date and Time Co-Signed: 01/02/23 20:25 EDT ED Patient Education Noteon 01-02-2023 ED Patient Education Note Normal [facility] ED Patient Summaryon 023 ED Patient Summary Normal [facility] ED Note-Physicianon 01-02-20 ED Note-Physician Normal [facility] Comment on above: Result Comment: Elec tronically Signed By: Landon Tidwell PA-C\.br\Date and Time Signed: 01/01/23 00:28 EDT\.br\Electronically Co-Signed By: Elisa Sánchez DO\.br\Date and Time Co-Signed: 01/01/23 01:37 EDT Consent for Treatmenton Consent for Treatment [id number]#1.00T IFF Normal [facility] Discharge Instructionson Discharge Instructions [id number]#1.00 TIFF Normal [facility] ED Clinical Summaryon 2022 ED Clinical Summary Normal [facility] ED Patient Education Noteon 12-31-2022 ED Patient Education Note Normal [facility] ED Patient Summaryon 023 ED Patient Summary Normal [facility] XR lumbar spine 6V w bending on 12-28-2022 XR lumbar spine 6V w bending [facility] [place] [address] XRay Report Signed Patient: Jerad Tracy MR#: [id number] 49 : 1975 Acct:[id number] Age/Sex: 47 / F ADM Date: 12/28/22 Loc: XD Room: Type: [facility] Attending Dr: Rose Marie SANTOSC Copies to: ELZBIETA Kaye Ordering Provider: ELZBIETA [...] Declan Bailey M.D.12/28/2022 3:27 PM Dictation Location: [place] [address] Transcribed By: [facility] 12/28/221526 Dictated By: Declan Bailey DO 12/28/221524 Signed By: 12/28/221526 Normal [facility] Consent for Treatmenton Consent for Treatment [id number]#1.00C D:127 Normal [facility] Discharge Instructionson Discharge Instructions [id number]#1.00 CD:127 Normal [facility] ED Clinical Summaryon 2022 ED Clinical Summary Normal [facility] ED Note-Physicianon 12-27-19 ED Note-Physician Normal [facility] Comment on above: Result Comment: Elec tronically Signed By: Robert Taylor PA-C\.br\Date and Time Signed: 12/26/22 17:06 EDT\.br\Electronically Co-Signed By: Balbina Bryant M.D.\.br\Date and Time Co-Signed: 12/26/22 17:28 EDT ED Patient Education Noteon 12-26-2022 ED Patient Education Note Normal [facility] ED Patient Summaryon 023 ED Patient Summary Normal [facility] XR Spine Lumbosacral 2 or 3 Viewson 12-24-2022 XR Spine Lumbosacral 2 or 3 Views Normal [facility] Consent for Treatmenton Consent for Treatment [id number]#1.00C D:127 Normal [facility] Discharge Instructionson Discharge Instructions [id number]#1.00C D:127 Normal [facility] ED Clinical Summaryon 2022 ED Clinical Summary Normal [facility] ED Note-Physicianon 12-24-19 ED Note-Physician [facility] Comment on above: Result Comment: Elec tronically Signed By: Nikhil Tubbs DO\.br\Date and Time Signed: 12/23/22 19:56 EDT ED Patient Education Noteon 12-23-2022 ED Patient Education Note Normal [facility] ED Patient Summaryon 023 ED Patient Summary Normal [facility] Progress Note-Nurseon 2022 Progress Note-Nurse left without papers [facility] ED Note-Physicianon 12-23-19 ED Note-Physician [facility] Comment on above: Result Comment: Elec tronically Signed By: Landon Tidewll PA-C\.br\Date and Time Signed: 12/07/22 23:23 EDT\.br\Electronically Co-Signed By: Chandana Varela MD\.br\Date and Time Co-Signed: 12/22/22 19:17 EDT ED Note-Physician [facility] Comment on above: Result Comment: Elec tronically Signed By: Robert Taylor PA-C\.br\Date and Time Signed: 12/18/22 13:31 EDT\.br\Electronically Co-Signed By: Jorge Mcintosh DO\.br\Date and Time Co-Signed: 12/22/22 18:47 EDT Consent for Treatmenton 11-24 Consent for Treatment [id number]#1.00C D:127 Normal [facility] Discharge Instructionson Discharge Instructions [id number]#1.00C D:127 Normal [facility] ED Clinical Summaryon 2022 ED Clinical Summary Normal [facility] ED Patient Education Noteon 12-18-2022 ED Patient Education Note Normal [facility] ED Patient Summaryon 023 ED Patient Summary Normal [facility] ED Note-Physicianon 12-15-19 ED Note-Physician Normal [facility] Comment on above: Result Comment: Elec tronically Signed By: Angelic Reece PA-C\.br\Date and Time Signed: 12/13/22 23:26 EDT\.br\Electronically Co-Signed By: Nikhil Tubbs DO\.br\Date and Time Co-Signed: 12/14/22 06:46 EDT Consent for Treatmenton 11-24 Consent for Treatment [id number]#1.00C D:127 Normal [facility] Discharge Instructionson Discharge Instructions [id number]#1.00C D:127 Normal [facility] Discharge Instructions [id number]#1.00C D:127 Normal [facility] ED Clinical Summaryon 2022 ED Clinical Summary Normal [facility] ED Clinical Summary Normal [facility] ED Note-Physicianon 12-14-19 ED Note-Physician Normal [facility] Comment on above: Result Comment: Elec tronically Signed By: Sam Dowd PA-C\.br\Date and Time Signed: 12/12/22 23:57 EDT\.br\Electronically Co-Signed By: Elisa Sánchez DO\.br\Date and Time Co-Signed: 12/13/22 01:13 EDT ED Patient Education Noteon 12-13-2022 ED Patient Education Note Normal [facility] ED Patient Education Note Normal [facility] ED Patient Summaryon 023 ED Patient Summary Normal [facility] ED Patient Summary Normal [facility] MRI Spine Lumbar w/o Contras ton 12-13-2022 MRI Spine Lumbar w/o Contrast Normal [facility] Monitor Recordon 12-13-2022 Monitor Record [id number]#1.00 CD:127 Normal [facility] RAD - Preliminary Cat Scan R eporton 12-13-2022 RAD - Preliminary Cat Scan Report [id number]#1.00C D:127 Normal [facility] SEROLOGYOrdered By: Zoë Khan e on 12-13-2022 HCG.beta subunit (U) [Moles/Vol] Negative Normal [facility] Man Sero U BetaHcg Qualon 12-13-2022 HCG.beta subunit (U) [Moles/Vol] Negative Normal [facility] Comment on above: Performed By: #### 2 [id number] ####[facility] [address] [place] [address] UA With Cult Reflexon 2022 Bacteria LM Ql (Urine sed) TRACE Normal Trace [facility] Comment on above: Performed By: #### 1 [id number] ####[facility] [address] [place] [address] Bilirubin Ql (U) 1+ Abnormal Negative [facility] Comment on above: Performed By: #### 1 [id number] ####[facility] [address] [place] [address] Calcium oxalate crystals LM Ql (Urine sed) Present Normal [facility] Comment on above: Performed By: #### 1 [id number] ####[facility] [address] [place] [address] Clarity (U) SL CLOUDY Invalid Interpretation Code [facility] Comment on above: Performed By: #### 1 [id number] ####[facility] [address] [place] [address] Color (U) YELLOW Normal Yellow [facility] Comment on above: Performed By: #### 1 4243943 ####[facility] [address] [place] [address] Crystals LM Ql (Urine sed) Present Normal [facility] Comment on above: Performed By: #### 1 [id number] ####[facility] [address] [place] [address] Epithelial cells.squamous LM.HPF (Urine sed) [#/Area] /[HPF] Normal 0-2 [facility] Comment on above: Performed By: #### 1 0848939 ####[facility] [address] [place] [address] Glucose Test strip (U) [Mass/Vol] Negative Normal Negative [facility] Comment on above: Performed By: #### 1 [id number] ####[address] [address] Hemoglobin Ql (U) Negative Normal Negative [facility] Comment on above: Performed By: #### 1 [id number] ####[address] [address] Ketones (U) [Mass/Vol] TRACE Invalid Interpretation Code Negative [facility] Comment on above: Performed By: #### 1 [id number] ####[address] [address] [place].plasma/[place] .RBC (Bld) [Mass ratio] 0-3 Normal 0-3 [facility] Comment on above: Performed By: #### 1 5837623 ####[address] [address] Mucus Ql (Urine sed) 3+ Normal Fish [facility] Comment on above: Performed By: #### 1 8000307 ####[address] [address] Nitrite Ql (U) Negative Normal Negative [facility] Comment on above: Performed By: #### 1 7323796 ####[address] [address] pH (U) 6.0 [pH] Invalid Interpretation Code 5.0-9.0 [facility] Comment on above: Performed By: #### 1 [id number] ####[facility] [address] [place] [address] Protein (U) [Mass/Vol] 1+ Abnormal Negative Fi [facility] Comment on above: Performed By: #### 1 8854953 ####[facility] [address] [place] [address] Specific gravity (U) [Rel density] >=1.030 Invalid Interpretation Code 1.005-1.030 [facility] Comment on above: Performed By: #### 1 8548122 ####[facility] [address] [place] [address] Type of Urine collection method Clean Catch Normal [facility] Comment on above: Performed By: #### 1 5900959 ####[facility] [address] [place] [address] Urobilinogen Qn (U) 0.2 {Jan'U}/dL Normal 0.0-1.0 [facility] Comment on above: Performed By: #### 1 5965495 ####[place] [address] WBC Auto Ql (U) Negative Normal Negative [facility] Comment on above: Performed By: #### 1 2406761 ####[facility] [address] [place] [address] WBC LM.HPF (Urine sed) [#/Area] 0-5 Normal 0-5 [facility] Comment on above: Performed By: #### 1 8432995 ####[facility] [address] [place] [address] URINALYSISOrdered By: Zoë gordon on 12-13-2022 Bacteria LM Ql (Urine sed) Trace /HPF Normal Trace/HPF [facility] UA Auto SS Bilirubin Ql (U) 1+ *ABN* (12/13/22 5:52 PM) Invalid Interpretation Code Negative [facility] UA Auto SS Calcium oxalate crystals LM Ql (Urine sed) Present (12/13/22 5:52 PM) Normal [facility] UA Auto SS Clarity (U) SL CLOUDY Invalid Interpretation Code [facility] UA Auto SS Color (U) Yellow (12/13/22 5:52 PM) Normal Yellow [facility] UA Auto SS Crystals LM Ql (Urine sed) Present (12/13/22 5:52 PM) Normal [facility] UA Auto SS Epithelial cells.squamous LM.HPF (Urine sed) [#/Area] /[HPF] Normal 0-2/HPF [facility] UA Aut o SS Glucose Test strip (U) [Mass/Vol] Negative (12/13/22 5:52 PM) Normal Negative [facility] UA Auto SS Hemoglobin Ql (U) Negative (12/13/22 5:52 PM) Normal Negative [facility] UA Auto SS Ketones (U) [Mass/Vol] Trace *NA* (12/13/22 5:52 PM) Invalid Interpretation Code Negative [facility] UA Auto SS [place].plasma/[place] .RBC (Bld) [Mass ratio] 0-3 /HPF Normal 0-3/HPF [...] [facility] UA Auto SS Urobilinogen Qn (U) 0.7581769 {Jan'U}/dL Normal 0.0 - 1.0 EU/dL [facility] UA Auto SS WBC Auto Ql (U) Negative (12/13/22 5:52 PM) Normal Negative [facility] UA Auto SS WBC LM.HPF (Urine sed) [#/Area] 0-5 /HPF Normal 0-5/HPF [facility] UA Auto SS XR Chest Single Viewon 12-13 XR Chest Single View Normal Fish [facility] Auto Diffon 12-12-2022 Basophils/100 WBC (Bld) 0.2 % Normal 0.0-2.0 [facility] Comment on above: Order Comment: Order Added by Discern Expert. Performed By: #### 2 914138, 9170874, 6967371, 05159205 ####[place] [address] [place] [address] Basophils/Leukocytes Auto (Bld) [Pure # fraction] 0.0 E9/L Normal 0.0-0.2 [facility] Comment on above: Order Comment: Order Added by Discern Expert. Performed By: #### 2 787727, 3975270, 4519851, 32237780 ####[address] [address] Eosinophils/100 WBC (Bld) 0.2 % Normal 0.0-8.0 [facility] Comment on above: Order Comment: Order Added by Gregory Expert. Performed By: #### 2 306746, 9032685, 3128231, 30766200 ####[address] [address] Eosinophils/Leukocytes Auto (Bld) [Pure # fraction] 0.0 E9/L Normal 0.0-0.5 [facility] Comment on above: Order Comment: Order Added by Gregory Expert. Performed By: #### 2 324159, 6433849, 8435326, 23470509 ####[address] [address] Lymphocytes/100 WBC (Bld) 8.3 % Low 14.0-50.0 [facility] Comment on above: Order Comment: Order Added by Gregory Expert. Performed By: #### 2 893912, 1091411, 1951690, 14910376 ####[address] [address] Lymphocytes/Leukocytes Auto (Bld) [Pure # fraction] 1.2 E9/L Normal 1.0-4.0 [facility] Comment on above: Order Comment: Order Added by Gregory Expert. Performed By: #### 2 797255, 6183557, 3955246, 00414936 ####[address] [address] Monocytes/100 WBC (Bld) 2.4 % Low 4.0-14.0 [facility] Comment on above: Order Comment: Order Added by Discern Expert. Performed By: #### 2 979407, 1069944, 2776354, 54039596 ####[place] [address] [place] [address] Monocytes/Leukocytes Auto (Bld) [Pure # fraction] 0.3 E9/L Normal 0.2-1.0 [facility] Comment on above: Order Comment: Order Added by Discern Expert. Performed By: #### 2 964601, 5255644, 1272021, 13493316 ####[address] [address] Neutrophils/100 WBC (Bld) 88.9 % High 36.0-75.0 [facility] Comment on above: Order Comment: Order Added by Discern Expert. Performed By: #### 2 217571, 2901805, 4598032, 03714318 ####[address] [address] Neutrophils/Leukocytes Auto (Bld) [Pure # fraction] 12.7 E9/L High 2.0-7.5 [facility] Comment on above: Order Comment: Order Added by Discern Expert. Performed By: #### 2 225137, 2041534, 6982223, 32098944 ####[place] [address] [place] [address] BMPon 12-12-2022 Anion gap [Moles/Vol] 12 mmol/L Normal 6-16 [facility] Comment on above: Performed By: #### 2 480497, 7483690, 5709703, 92002300 ####[place] [address] [place] [address] Calcium [Mass/Vol] 8.6 mg/dL Low 8.9-11.1 [facility] Comment on above: Performed By: #### 2 818862, 2034138, 2005182, 78959018 ####[place] [address] [place] [address] Chloride [Moles/Vol] 110 mmol/L Normal 101-111 Fish [facility] Comment on above: Performed By: #### 2 149367, 5804884, 3075047, 03320851 ####[facility] [address] [place] [address] CO2 [Moles/Vol] 19 mmol/L Low 21-31 [facility] Comment on above: Performed By: #### 2 099626, 0583171, 8749218, 96103530 ####[facility] [address] [place] [address] Creatinine [Mass/Vol] 0.9 mg/dL Normal 0.5-1.3 [facility] Comment on above: Performed By: #### 2 100645, 0175735, 8492836, 11110401 ####[facility] [address] [place] [address] Glucose [Mass/Vol] 132 mg/dL Normal 55-199 [facility] Comment on above: Result Comment: If t his glucose result represents a fasting glucose, interpretation should refer to the following reference range: 55-99 mg/dL Performed By: #### 2 042590, 9159731, 8310735, 78034580 ####[facility] [address] [place] [address] Potassium [Moles/Vol] 4.7 mmol/L Normal 3.5-5.3 [facility] Comment on above: Result Comment: 'Spe cimen hemolyzed. Result may be affected. Redraw is recommended.' Performed By: #### 2 822225, 9372616, 6978994, 98256110 ####[facility] [address] [place] [address] Sodium [Moles/Vol] 136 mmol/L Normal 135-145 [facility] Comment on above: Performed By: #### 2 051527, 0036661, 0494302, 39393951 ####[facility] [address] [place] [address] Urea nitrogen [Mass/Vol] 17 mg/dL Normal 5-21 [facility] Comment on above: Performed By: #### 2 405606, 1310232, 8329075, 16309425 ####[facility] [address] [place] [address] Urea nitrogen/Creatinine [Mass ratio] 19 No Units Normal 10-20 [facility] Comment on above: Performed By: #### 2 270408, 4370364, 6088124, 17612118 ####[address] [address] CBC w/ Auto Diffon 3 Erythrocyte distribution width (RBC) [Ratio] 13.1 % Normal 10.9-14.2 [facility] Comment on above: Performed By: #### 2 663301, 7661059, 6427033, 26929318 ####[address] [address] Hematocrit (Bld) [Volume fraction] 42.4 % Normal 34.0-46.0 [facility] Comment on above: Performed By: #### 2 225622, 0477976, 6573502, 27210582 ####[address] [address] Hemoglobin (Bld) [Mass/Vol] 14.1 g/dL Normal 12.0-16.0 [facility] Comment on above: Performed By: #### 2 280945, 0249543, 2645278, 74286926 ####[address] [address] MCH (RBC) [Entitic mass] 32.5 pg Normal 27.0-34.0 [facility] Comment on above: Performed By: #### 2 657828, 5814359, 0856281, 14566389 ####[address] [address] MCHC (RBC) [Mass/Vol] 33.4 g/dL Normal 31.4-36.0 [facility] Comment on above: Performed By: #### 2 564884, 4441092, 0816691, 14842349 ####[facility] [address] [place] [address] MCV (RBC) [Entitic vol] 97.5 fL Normal 80.0-100.0 [facility] Comment on above: Performed By: #### 2 246398, 3815651, 9304234, 24782654 ####[address] [address] Platelet mean volume (Bld) [Entitic vol] 8.6 fL Normal 6.4-10.8 [facility] Comment on above: Performed By: #### 2 704976, 0751761, 7201117, 95873154 ####[address] [address] Platelets (Bld) [#/Vol] 281.0 E9/L Normal 150.0-500.0 [facility] Comment on above: Performed By: #### 2 096682, 8938330, 4005164, 16237008 ####[address] [address] RBC (Bld) [#/Vol] 4.4 E12/L Normal 4.3-5.9 [facility] Comment on above: Performed By: #### 2 574555, 8520052, 2134030, 29329307 ####[address] [address] WBC corrected for nucl RBC Auto (Bld) [#/Vol] 14.3 E9/L High 4.0-11.0 [facility] Comment on above: Performed By: #### 2 935434, 0369201, 9259405, 81660865 ####[address] [address] CHEMISTRYOrdered By: SYSTEM SYSTEM on 12-12-2022 Anion gap [Moles/Vol] 12 mmol/L Normal 6 - 16 mEq/L [facility] Remisol Calcium [Mass/Vol] 8.6 mg/dL Low 8.9 - 11. 1 mg/dL [facility] Remisol Chloride [Moles/Vol] 110 mmol/L Normal 101 - 1 11 mmol/L [facility] Remisol CO2 [Moles/Vol] 19 mmol/L Low 21 - 31 mmol/L [facility] Remisol Creatinine [Mass/Vol] 0.9 mg/dL Normal 0.5 - 1.3 mg/dL [facility] Remisol GFR/1.73 sq M.predicted among non-blacks MDRD (S/P/Bld) [Vol rate/Area] 80 mL/min/1.73 m2 Normal >=59mL/min/1 .73 m2 [facility] Chem S Glucose [Mass/Vol] 132 mg/dL Normal 55 - 199 mg/dL [facility] Potassium [Moles/Vol] 4.7 mmol/L Normal 3.5 - 5.3 mmol/L [facility] Comment on above: Result Comment: 'Spe cimen hemolyzed. Result may be affected. Redraw is recommended.' Sodium [Moles/Vol] 136 mmol/L Normal 135 - 145 mmol/L [facility] Remisol Urea nitrogen [Mass/Vol] 17 mg/dL Normal 5 - 21 mg/dL [facility] Remisol Urea nitrogen/Creatinine [Mass ratio] 19 mg/mg Normal 10 - 20 [facility] Remisol Consent for Treatmenton 11-24 Consent for Treatment [id number]#1.00C D:127 Normal [facility] ED Note-Nursingon 12-12-2022 ED Note-Nursing Patient complaint during registration not SOB. EKG done when patient reports SOB Normal [facility] ED Note-Nursing This RN requests to observe patient due to paresthesia, per PA. Gabe Vargas to put patient back in waiting room Normal [facility] HEMATOLOGYOrdered By: SYSTEM SYSTEM on 12-12-2022 Basophils/100 WBC (Bld) 0.2 % Normal 0.0 - 2.0 % [facility] HemeAutoSS Basophils/Leukocytes Auto (Bld) [Pure # fraction] 0.0 E9/L Normal 0.0 - 0.2 E9/L [facility] HemeAutoSS Eosinophils/100 WBC (Bld) 0.2 % Normal 0.0 - 8.0 % [facility] HemeAutoSS Eosinophils/Leukocytes Auto (Bld) [Pure # fraction] 0.0 E9/L Normal 0.0 - 0.5 E9/L [facility] HemeAutoSS Lymphocytes/100 WBC (Bld) 8.3 % Low 14.0 - 50.0 % [facility] HemeAutoSS Lymphocytes/Leukocytes Auto (Bld) [Pure # fraction] 1.2 E9/L Normal 1.0 - 4.0 E9/L [facility] HemeAutoSS Monocytes/100 WBC (Bld) 2.4 % Low 4.0 - 14.0 % [facility] HemeAutoSS Monocytes/Leukocytes Auto (Bld) [Pure # fraction] 0.3 E9/L Normal 0.2 - 1.0 E9/L [facility] HemeAutoSS Neutrophils/100 WBC (Bld) 88.9 % High 36.0 - 75.0 % [facility] HemeAutoSS Neutrophils/Leukocytes Auto (Bld) [Pure # fraction] 12.7 E9/L High 2.0 - 7.5 E9/L [facility] HemeAutoSS HEMATOLOGYOrdered By: Frank Strong on 12-12-2022 Erythrocyte distribution width (RBC) [Ratio] 13.1 % Normal 10.9 - 14.2 % [facility] HemeAutoSS Hematocrit (Bld) [Volume fraction] 42.4 % Normal 34.0 - 46.0 % [facility] HemeAutoSS Hemoglobin (Bld) [Mass/Vol] 14.1 g/dL Normal 12.0 - 16.0 gm/dL [facility] HemeAutoSS MCH (RBC) [Entitic mass] 32.5 pg Normal 27.0 - 34.0 pg [facility] HemeAutoSS MCHC (RBC) [Mass/Vol] 33.4 g/dL Normal 31.4 - 36.0 gm/dL [facility] HemeAutoSS MCV (RBC) [Entitic vol] 97.5 fL Normal 80.0 - 100.0 fL [facility] HemeAutoSS Platelet mean volume (Bld) [Entitic vol] 8.6 fL Normal 6.4 - 10.8 fL [facility] HemeAutoSS Platelets (Bld) [#/Vol] 281.0 E9/L Normal 150.0 - 500.0 E9/L [facility] HemeAutoSS RBC (Bld) [#/Vol] 4.4 E12/L Normal 4.3 - 5.9 E12/L [facility] HemeAutoSS WBC corrected for nucl RBC Auto (Bld) [#/Vol] 14.3 E9/L High 4.0 - 11.0 E9/L [facility] HemeAutoSS RAD - MRI Screening Formon 0 12-12-2022 RAD - MRI Screening Form [id number]#1.00 CD:127 Normal [facility] eGFRon 12-12-2022 GFR/1.73 sq M.predicted among non-blacks MDRD (S/P/Bld) [Vol rate/Area] 80 mL/min/1.73 m2 Normal >=59 [facility] Comment on above: Order Comment: Order added by Discern Expert. Result Comment: Humanities And Languages Professor simba kidney disease could be indicated at eGFR's of less than 60 mL/min/1.73m2. Kidney failure is indicated at less than 15 mL/min/1.73m2. Performed By: #### 2 488987, 2242342, 3071050, [id number] ####[facility] [address] [place] [address] Alanine aminotransferase [En zymatic activity/volume] in Serum or PlasmaOrdered By: Mary Beth Chavezore on 12-10-2022 ALT [Catalytic activity/Vol] 39 U/L Normal 7-52 [facility] Comment on above: Performed By: #### B MP, LIPASE, CBC, HEPATIC #### [facility] [id number] [facility] Albumin [Mass/volume] in Ser um or Plasma by Bromocresol green (BCG) dye binding methoOrdered By: Mary Beth Bullimore on 12-10-2022 Albumin BCG dye [Mass/Vol] 3.7 g/dL 3.5-5.7 [facility] Alkaline phosphatase [Enzyma tic activity/volume] in Serum or PlasmaOrdered By: Mary Beth Bullimore on 12-10-2022 ALP [Catalytic activity/Vol] 70 U/L Normal 34-104 [facility] Comment on above: Performed By: #### B MP, LIPASE, CBC, HEPATIC #### [facility] [id number] [facility] Amorphous urine sedimentOrde red By: Deb Carmichael on 12-10-2022 Amorphous sediment LM Ql (Urine sed) 2+ [LPF] [facility] Aspartate aminotransferase [ Enzymatic activity/volume] in Serum or PlasmaOrdered By: Mary Beth Sebastienimceline on 12-10-2022 AST [Catalytic activity/Vol] 28 U/L Normal 13-39 [facility] Comment on above: Performed By: #### B MP, LIPASE, CBC, HEPATIC #### [address] Automated basophil %Ordered By: Mary Beth Bullimore on 12-10-2022 Basophils/100 WBC (Bld) 0.5 % Normal . [facility] Comment on above: Performed By: #### B MP, LIPASE, CBC, HEPATIC #### [address] Automated basophil countOrde red By: Mary Beth Sebastienimore on 12-10-2022 Basophils (Bld) [#/Vol] 0.1 10*3/uL Normal 0.0-0.2 [facility] Comment on above: Result Comment: PERF ORMED BY: [place] [address] PATHOLOGIST JOB RECRUITER JASON WILSON M.D. Performed By: #### B MP, LIPASE, CBC, HEPATIC #### [address] Automated blood monocyte cou ntOrdered By: Mary Beth Bullimore on 12-10-2022 Monocytes (Bld) [#/Vol] 0.7 10*3/uL Normal 0.0-0.8 [facility] Comment on above: Performed By: #### B MP, LIPASE, CBC, HEPATIC #### [address] Automated eosinophil %Ordere d By: Mary Beth Bullimore on 12-10-2022 Eosinophils/100 WBC (Bld) 1.7 % Normal . [facility] Comment on above: Performed By: #### B MP, LIPASE, CBC, HEPATIC #### [address] [place] [address] [place] Automated eosinophil countOr dered By: Mary Beth Sloan on 12-10-2022 Eosinophils (Bld) [#/Vol] 0.2 10*3/uL Normal 0.0-0.45 [facility] Comment on above: Performed By: #### B MP, LIPASE, CBC, HEPATIC #### [facility] [address] Automated erythrocytes count in urine sediment (number/area)Ordered By: Deb Carmichael on 12-10-2022 RBC Auto (Urine sed) [#/Area] 10-19 [HPF] 0-4 [facility] Automated leukocytes count i n urine sediment (number/area)Ordered By: Deb Carmichael on 12-10-2022 WBC Auto (Urine sed) [#/Area] 3-4 [HPF] 0-4 [facility] Automated monocyte %Ordered By: Mary Beth Sloan on 12-10-2022 Monocytes/100 WBC (Bld) 6.2 % Normal . [facility] Comment on above: Performed By: #### B MP, LIPASE, CBC, HEPATIC #### [address] Automated neutrophil %Ordere d By: Mary Beth Sloan on 12-10-2022 Neutrophils/100 WBC (Bld) 71.6 % Normal . [facility] Comment on above: Performed By: #### B MP, LIPASE, CBC, HEPATIC #### [address] Automated urine color determ inationOrdered By: Deb Carmichael on 12-10-2022 Color (U) Yellow Normal Yellow [facility] Comment on above: Order Comment: Name Collection Type:: Voided Performed By: #### C BC, CMP, CUBLD #### [address] Bilirubin Test strip Ql (U)O rdered By: Dbe Carmichael on 12-10-2022 Bilirubin Ql (U) Negative Negative [facility] Bilirubin.total [Mass/volume ] in Serum or PlasmaOrdered By: Mary Beth Sloan on 12-10-2022 Bilirubin [Mass/Vol] 0.3 mg/dL Normal 0.3-1.0 [facility] Comment on above: Performed By: #### B MP, LIPASE, CBC, HEPATIC #### [address] Calcium [Mass/volume] in Ser um or PlasmaOrdered By: Mary Beth Bullimore on 12-10-2022 Calcium [Mass/Vol] 8.3 mg/dL Low 8.6-10.3 [facility] Comment on above: Performed By: #### B MP, LIPASE, CBC, HEPATIC #### [address] Carbon dioxide, total [Moles /volume] in Serum or PlasmaOrdered By: Mary Beth Bullimore on 12-10-2022 CO2 [Moles/Vol] 22.2 mmol/L Normal 21.0-31.0 [facility] Comment on above: Performed By: #### B MP, LIPASE, CBC, HEPATIC #### [address] Chloride [Moles/volume] in S saw or PlasmaOrdered By: Mary Beth Bullimore on 12-10-2022 Chloride [Moles/Vol] 112 mmol/L High 98-107 [facility] Comment on above: Performed By: #### B MP, LIPASE, CBC, HEPATIC #### [address] Complete Blood Count Auto Di ffon 12-10-2022 Mean Corpuscular HGB Conc 34.0 g/dL Normal 32.0-35.0 [facility] Comment on above: Performed By: #### B MP, LIPASE, CBC, HEPATIC #### [address] Monocytes/100 WBC (Bld) 18.95 % Normal 0.00-20.00 [facility] Comment on above: Performed By: #### B MP, LIPASE, CBC, HEPATIC #### [address] NRBC% 0.1 /100{WBC} Normal 0-0.5 [facility] Comment on above: Performed By: #### B MP, LIPASE, CBC, HEPATIC #### [address] Comprehensive Metabolic Pane cassie 12-10-2022 Albumin [Mass/Vol] 3.7 g/dL Normal 3.5-5.7 [facility] Comment on above: Performed By: #### B MP, LIPASE, CBC, HEPATIC #### [address] Creatinine Clr Calc Pharmacy 109.22 Normal [facility] Comment on above: Result Comment: PERF ORMED BY: [place] [address] PATHOLOGIST JOB RECRUITER JASON WILSON M.D. Performed By: #### B MP, LIPASE, CBC, HEPATIC #### [address] GFR/1.73 sq M.predicted MDRD (S/P/Bld) [Vol rate/Area] mL/min/{1.73_m2} Normal [facility] Comment on above: Performed By: #### B MP, LIPASE, CBC, HEPATIC #### [address] Creatinine [Mass/volume] in Serum or PlasmaOrdered By: Mary Beth Sloan on 12-10-2022 Creatinine [Mass/Vol] 0.77 mg/dL Normal 0.60-1.20 [facility] Comment on above: Performed By: #### B MP, LIPASE, CBC, HEPATIC #### [address] Dipstick and Microscopicon 0 12-10-2022 Amorphous Sediment,Urine 2+ Normal [facility] Comment on above: Order Comment: Name Collection Type:: Voided Performed By: #### C BC, CMP, CUBLD #### [address] Appearance (U) Turbid Critically abnormal Clear [facility] Comment on above: Order Comment: Name Collection Type:: Voided Performed By: #### C BC, CMP, CUBLD #### [address] Bacteria,Urine 3+ High None Seen [facility] Comment on above: Order Comment: Name Collection Type:: Voided Performed By: #### C BC, CMP, CUBLD #### [address] Bilirubin,Urine Negative Normal Negative [facility] Comment on above: Order Comment: Name Collection Type:: Voided Performed By: #### C BC, CMP, CUBLD #### [address] Glucose Ql (U) Normal Normal Normal [facility] Comment on above: Order Comment: Name Collection Type:: Voided Performed By: #### C BC, CMP, CUBLD #### [place] [address] [place] Hyaline Casts,Urine 0-8 Normal 0-8 [facility] Comment on above: Order Comment: Name Collection Type:: Voided Result Comment: PERF ORMED BY: [place] [address] PATHOLOGIST JOB RECRUITER JASON WILSON M.D. Performed By: #### C BC, CMP, CUBLD #### [address] Ketones Ql (U) Negative Normal Negative [facility] Comment on above: Order Comment: Name Collection Type:: Voided Performed By: #### C BC, CMP, CUBLD #### [address] Leukocyte esterase Test strip Ql (U) 1+ High Negative [facility] Comment on above: Order Comment: Name Collection Type:: Voided Performed By: #### C BC, CMP, CUBLD #### [address] Nitrite,Urine Negative Normal Negative [facility] Comment on above: Order Comment: Name Collection Type:: Voided Performed By: #### C BC, CMP, CUBLD #### [address] Occult Blood,Urine Negative Normal Negative [facility] Comment on above: Order Comment: Name Collection Type:: Voided Result Comment: PERF ORMED BY: [place] [address] PATHOLOGIST JOB RECRUITER JASON WILSON M.D. Performed By: #### C BC, CMP, CUBLD #### [address] Othe Crystals,Urine None Seen Normal [facility] Comment on above: Order Comment: Name Collection Type:: Voided Performed By: #### C BC, CMP, CUBLD #### [address] Protein,Urine Negative Normal Negative [facility] Comment on above: Order Comment: Name Collection Type:: Voided Performed By: #### C BC, CMP, CUBLD #### [address] RBC,Urine 10-19 High 0-4 [facility] Comment on above: Order Comment: Name Collection Type:: Voided Performed By: #### C BC, CMP, CUBLD #### [address] Specificy [place],Urine 1.020 Normal 1.001-1.030 [facility] Comment on above: Order Comment: Name Collection Type:: Voided Performed By: #### C BC, CMP, CUBLD #### [place] [address] [place] Squamous Epithelial Cell,Urine 5-9 High 0-2 [facility] Comment on above: Order Comment: Name Collection Type:: Voided Performed By: #### C BC, CMP, CUBLD #### [address] Urobilinogen,Urine Normal Normal Normal [facility] Comment on above: Order Comment: Name Collection Type:: Voided Performed By: #### C BC, CMP, CUBLD #### [facility] [address] WBC,Urine 3-4 Normal 0-4 [facility] Comment on above: Order Comment: Name Collection Type:: Voided Performed By: #### C BC, CMP, CUBLD #### [facility] [address] Erythrocyte distribution wid th [Ratio] by Automated countOrdered By: Mary Beth Nathalia on 12-10-2022 Erythrocyte distribution width (RBC) [Ratio] 13.3 % Normal 11.9-15.3 [facility] Comment on above: Performed By: #### B MP, LIPASE, CBC, HEPATIC #### [facility] [address] Erythrocytes [#/volume] in B lood by Automated countOrdered By: Mary Beth Chavezore on 12-10-2022 RBC (Bld) [#/Vol] 4.00 10*6/uL Normal 3.60-5.00 [facility] Comment on above: Performed By: #### B MP, LIPASE, CBC, HEPATIC #### [address] Glucose [Mass/volume] in Ser um or PlasmaOrdered By: Mary Beth Bullimore on 12-10-2022 Glucose [Mass/Vol] 111 mg/dL High 70-100 [facility] Comment on above: ADA recommended refe rence rangeRandom Glucose Reference Range is dependent on time and content of last meal. Glucose of more than 200 mg/dL in a nonstressed, ambulatory subject supports the diagnosis of Diabetes Mellitus. Result Comment: [place] om Glucose Reference Range is dependent on time and content of last meal. Glucose of more than 200 mg/dL in a nonstressed, ambulatory subject supports the diagnosis of Diabetes Mellitus. ADA recommended reference range Performed By: #### B MP, LIPASE, CBC, HEPATIC #### [facility] [address] [place] [address] [place] Hematocrit [Volume Fraction] of Blood by Automated countOrdered By: Mary Beth Bullimore on 12-10-2022 Hematocrit (Bld) [Volume fraction] 39.3 % Normal 34.0-46.4 [facility] Comment on above: Performed By: #### B MP, LIPASE, CBC, HEPATIC #### [facility] [address] Hemoglobin [Mass/volume] in BloodOrdered By: Mary Beth Sloan on 12-10-2022 Hemoglobin (Bld) [Mass/Vol] 13.4 g/dL Normal 11.8-15.4 [facility] Comment on above: Performed By: #### B MP, LIPASE, CBC, HEPATIC #### [facility] [address] Ketones Auto test strip (U) [Mass/Vol]Ordered By: Deb Carimchael on 12-10-2022 Ketones (U) [Mass/Vol] Negative Negative [facility] - UrinalysisOrder ed By: Deb Carmichael on 12-10-2022 Hyaline casts LM Ql (Urine sed) 0-8 [LPF] 0-8 [facility] Leukocytes [#/volume] correc lisa for nucleated erythrocytes in Blood by Automated counOrdered By: Mary Beth Sloan on 12-10-2022 WBC corrected for nucl RBC Auto (Bld) [#/Vol] 11.1 10*3/uL 3.8-11.6 [facility] Leukocytes [#/volume] in Blo od by Automated countOrdered By: Mary Beth Sloan on 12-10-2022 WBC (Bld) [#/Vol] 11.1 10*3/uL Normal 3.8-11.6 [facility] Comment on above: Performed By: #### B MP, LIPASE, CBC, HEPATIC #### [facility] [address] Lymphocytes [#/volume] in Bl ood by Automated countOrdered By: Mary Beth Sloan on 12-10-2022 Lymphocytes (Bld) [#/Vol] 2.2 10*3/uL Normal 1.00-4.8 [facility] Comment on above: Performed By: #### B MP, LIPASE, CBC, HEPATIC #### [facility] [address] Lymphocytes/100 leukocytes i n Blood by Automated countOrdered By: Mary Beth Sloan on 12-10-2022 Lymphocytes/100 WBC (Bld) 20.0 % Normal . [facility] Comment on above: Performed By: #### B MP, LIPASE, CBC, HEPATIC #### [facility] [address] [place] [address] MCH [Entitic mass] by Automa lisa countOrdered By: Mary Beth Croweimore on 12-10-2022 MCH (RBC) [Entitic mass] 33.4 pg Normal 24.7-34.3 [facility] Comment on above: Performed By: #### B MP, LIPASE, CBC, HEPATIC #### [address] MCHC Auto (RBC) [Mass/Vol]Or dered By: Mary Beth Croweimceline on 12-10-2022 MCHC (RBC) [Mass/Vol] 34.0 g/dL 32.0-35.0 [facility] MCV [Entitic volume] by Auto mated countOrdered By: Mary Beth Sloan on 12-10-2022 MCV (RBC) [Entitic vol] 98.2 fL Normal 80-100 [facility] Comment on above: Performed By: #### B MP, LIPASE, CBC, HEPATIC #### [facility] [address] [place] [address] Monocyte distribution width [Entitic volume] in Blood by AutomatedOrdered By: Mary Beth Sloan on 12-10-2022 Monocyte distribution width Auto (Bld) [Entitic vol] 18.95 % 0.00-20.00 [facility] Neutrophils [#/volume] in Bl ood by Automated countOrdered By: Mary Beth Croweimceline on 12-10-2022 Neutrophils (Bld) [#/Vol] 7.9 10*3/uL High 1.8-7.7 [facility] Comment on above: Performed By: #### B MP, LIPASE, CBC, HEPATIC #### [address] Nitrite Test strip Ql (U)Ord ered By: Deb Carmichael on 12-10-2022 Nitrite Ql (U) Negative Negative [facility] No Panel InformationOrdered By: Mary Beth Sloan on 12-10-2022 Estimated GFR (CKD-EPI) > 60.0 mL/Min [facility] Creatinine Clearance (Chem 109.22 [facility] Nucleated erythrocytes [Pres ence] in Blood by Automated countOrdered By: Mary Beth Sloan on 12-10-2022 Nucleated RBC Auto Ql (Bld) 0.1 /100{WBC} 0-0.5 [facility] Platelet mean volume [Entiti c volume] in Blood by Automated countOrdered By: Mary Beth Sloan on 12-10-2022 Platelet mean volume (Bld) [Entitic vol] 8.5 fL Normal 6.3-10.7 [facility] Comment on above: Performed By: #### B MP, LIPASE, CBC, HEPATIC #### [facility] [address] Platelets [#/volume] in Bloo d by Automated countOrdered By: Mary Beth Sloan on 12-10-2022 Platelets (Bld) [#/Vol] 228 10*3/uL Normal 150-450 [facility] Comment on above: Performed By: #### B MP, LIPASE, CBC, HEPATIC #### [facility] [address] Potassium [Moles/volume] in Serum or PlasmaOrdered By: Mary Beth Sloan on 12-10-2022 Potassium [Moles/Vol] 3.9 mmol/L Normal 3.5-5.1 [facility] Comment on above: Performed By: #### B MP, LIPASE, CBC, HEPATIC #### [facility] [address] Protein Auto test strip (U) [Mass/Vol]Ordered By: Deb Carmichael on 12-10-2022 Protein (U) [Mass/Vol] Negative Negative [facility] Protein [Mass/volume] in Ser um or PlasmaOrdered By: Mary Beth Sloan on 12-10-2022 Protein [Mass/Vol] 6.8 g/dL Normal 6.4-8.9 [facility] Comment on above: Performed By: #### B MP, LIPASE, CBC, HEPATIC #### [facility] [address] Serum globulin measurement b y calculation (mass/volume)Ordered By: Mary Beth Sloan on 12-10-2022 Globulin (S) [Mass/Vol] 3.1 g/dL Normal [facility] Comment on above: Performed By: #### B MP, LIPASE, CBC, HEPATIC #### [facility] [address] [place] [address] Serum or plasma albumin/glob ulin mass ratioOrdered By: Mary Beth Sloan on 12-10-2022 Albumin/Globulin [Mass ratio] 1.2 {ratio} [facility] Comment on above: Performed By: #### B MP, LIPASE, CBC, HEPATIC #### [facility] [address] [place] [address] Serum or plasma anion gap de terminationOrdered By: Mary Beth Sloan on 12-10-2022 Anion gap [Moles/Vol] 6.7 mmol/L Normal 6.0-15.0 [facility] Comment on above: Performed By: #### B MP, LIPASE, CBC, HEPATIC #### [address] Sodium [Moles/volume] in Ser um or PlasmaOrdered By: Mary Beth Bullimore on 12-10-2022 Sodium [Moles/Vol] 137 mmol/L Normal 136-145 [facility] Comment on above: Performed By: #### B MP, LIPASE, CBC, HEPATIC #### [facility] [address] [place] [address] Specific gravity Auto test s trip (U) [Rel density]Ordered By: Deb Carmichael on 12-10-2022 Specific gravity (U) [Rel density] 1.020 1.001-1.030 [facility] Squamous epithelial cells de tection in urine sediment by light microscopyOrdered By: Deb Carmichael on 12-10-2022 Epithelial cells.squamous LM Ql (Urine sed) 5-9 [HPF] 0-2 [facility] Urea nitrogen [Mass/volume] in Serum or PlasmaOrdered By: Mary Beth Sloan on 12-10-2022 Urea nitrogen [Mass/Vol] 12 mg/dL Normal 7-25 [facility] Comment on above: Performed By: #### B MP, LIPASE, CBC, HEPATIC #### [facility] [address] Urine bacteria detection by automated methodOrdered By: Deb Carmichael on 12-10-2022 Bacteria Auto Ql (U) 3+ None Seen [facility] Urine clarity by refractomet ry automatedOrdered By: Deb Carmichael on 12-10-2022 Clarity Refractometry automated (U) Turbid Clear [facility] Urine glucose measurement by automated test strip (mass/volume)Ordered By: Deb Carmichael on 12-10-2022 Glucose Auto test strip (U) [Mass/Vol] Normal mg/dL Normal [facility] Urine hemoglobin detection b y automated test stripOrdered By: Deb Carmichael on 12-10-2022 Hemoglobin Auto test strip Ql (U) Negative Negative [facility] Urine leukocyte esterase det ection by automated test stripOrdered By: Deb Carmichael on 12-10-2022 Leukocyte esterase Auto test strip Ql (U) 1+ Negative [facility] Urine pH measurement by auto mated test stripOrdered By: Deb Carmichael on 12-10-2022 pH (U) 8.0 [pH] Normal 5.0-9.0 [facility] Comment on above: Order Comment: Name Collection Type:: Voided Performed By: #### C BC, CMP, CUBLD #### [facility] [address] [place] [address] Urine sediment crystal ident ification by light microscopyOrdered By: Deb Carmichael on 12-10-2022 Crystals LM Nom (Urine sed) None seen [HPF] [facility] Urobilinogen Auto test strip (U) [Mass/Vol]Ordered By: Deb Carmichael on 12-10-2022 Urobilinogen (U) [Mass/Vol] Normal mg/dL Normal [facility] XR lumbar spine min 4V*on XR lumbar spine min 4V* [facility] [place] [address] [place] [address] XRay Report Signed Patient: Jerad Tracy MR#: [id number] 49 : 1975 Acct:[id number] Age/Sex: 47 / F ADM Date: 12/09/22 Loc: ER Room: Type: [facility] ER Attending Dr: Copies to: Joshua Ferrell [...] Yoan Ma M.D.12/09/2022 5:39 PM Dictation Location: [place] [address] Transcribed By: [facility] 12/09/221738 Dictated By: Yoan Ma II, MD 12/09/221735 Signed By: 12/09/221738 Normal [facility] Consent for Treatmenton 11-23 Consent for Treatment [id number] D:127 Normal [facility] Discharge Instructionson Discharge Instructions [id number] CD:127 Normal [facility] ED Clinical Summaryon 2022 ED Clinical Summary Normal Osbaldo martinez [facility] ED Patient Education Noteon 12-07-2022 ED Patient Education Note Normal [facility] ED Patient Summaryon 023 ED Patient Summary Normal [facility] ED NOTESon 12-04-2022 [facility] Ed Note ED Note: Last filed note HNO ID: [id number] Author: Zoey Dan RN Service: Emergency Medicine Author Type: Registered Nurse Filed: 12/04/222024 Note Text: Patient discharged to home, alert and oriented, skin warm, dry and pink. Denies needs and or questions. Will follow-up as directed, patient encouraged to return for worsening or new symptoms or other concerns. Normal [facility] Ed Note ED Note: Last filed note HNO ID: [id number] Author: Zoey Dan RN Service: Emergency Medicine Author Type: Registered Nurse Filed: 12/04/222010 Note Text: Patient medicated per MAY. Respirations even and unlabored. Skin warm and dry. Normal [facility] Ed Note ED Note: Last filed note HNO ID: [id number] Author: Zoey Dan RN Service: Emergency Medicine Author Type: Registered Nurse Filed: 12/04/221953 Note Text: Provider at bedside. Normal [facility] ED PROVIDER NOTESon 12-05-19 [facility] Ed Provider Note ED Provider Note: Pepe ast filed note HNO ID: [id number] Author: Allyson Griffiths, DO Service: ? Author Type: Physician Filed: 12/04/221999 Note Text: Chief Complaint: Lower lumbar back pain that radiates to the right leg history of lumbar disc disease HPI: Jerad Tracy is a 47 year old female who presents with a complaint that she does have a known history of lumbar disc disease. She drove over the weekend from [facility] where she lives and exacerbated her back [...] No current outpatient medications on file. ALLERGIES: Hydrocodone-acetaminoph en and Penicillin g PHYSICAL EXAM: VITAL SIGNS: [...] Management: Outpatient management with her neurosurgeon in [place] FINAL IMPRESSION: 1 --acute on chronic lower lumbar back pain with history of lumbar disc disease 2 -- 3 -- I have reviewed the past medical, family, and social history sections including the medications and allergies listed in the above medical record. Electronically signed by: Allyson Griffiths DO, 12/04/2022 7:58 PM Normal [facility] ED TRIAGEon 12-04-2022 [facility] Ed Triage Note ED Triage Note: Last filed note HNO ID: [id number] Author: Radha Spivey RN Service: ? Author Type: Registered Nurse Filed: 12/04/22 0880 Note Text: Patient arrives ambulatory to triage with c/o herniated disc in her back, states this is a chronic issue but the pain has been flaring up worse. Normal [facility] XR lumbar spine 2-3V*on 10-24 XR lumbar spine 2-3V* [facility] [place] [address] XRay Report Signed Patient: Jerad Tracy MR#: [id number] 49 : 1975 Acct:[id number] Age/Sex: 47 / F ADM Date: 11/16/22 Loc: ER Room: Type: [facility] ER Attending Dr: Copies to: Vlad Martinez [...] L5-S1. Impression dictated by: Johan Velazquez Jr., D.O.11/17/2022 10:33 AM Dictation Location: RADIO-PC-15 Transcribed By: [facility] 11/17/22 103 Dictated By: Johan Velazquez Jr, DO 11/17/22 103 Signed By: 11/17/22 103 Normal [facility] XR hip LT min 2V(w/wo pelvis )*on 11-06-2022 XR hip LT min 2V(w/wo pelvis)* [facility] [place] [address] [place] [address] XRay Report Signed Patient: Jerad Tracy MR#: [id number] 49 : 1975 Acct:[id number] Age/Sex: 47 / F ADM Date: 11/06/22 Loc: XD Room: Type: [facility] Attending Dr: Rose Marie SANTOSC Copies to: ELZBIETA Kaye Ordering Provider: ELZBIETA [...] Idalia Juarez M.D.11/06/2022 3:31 PM Dictation Location: RADIO--10 Transcribed By: BRYCE 11/06/22 153 Dictated By: Idalia Juarez MD 11/06/22 153 Signed By: 11/06/22 153 Normal [facility] Provider Note - ED v3on [...] SIGNS: T PRBP SpO2O2(LPM) %FiO2 Method 04-Nov-2022 22:29:[id number] 96 room air, no respiratory support MDM [...] she always goes to the same place, [facility]'s ER and that she is not frequently [...] Referenced From Triage - ED 04-Nov-2022 22:29 [facility] Triage - EDon 11-05-2022 Triage - ED [...] BMI (kg/m2): 42.617 Calculated BSA (m2) 2.20 [place] Coma Scale: Best Eye Response: (E4) spontaneous Best Motor Response: (M6) obeys commands Best Verbal Response: (V5) oriented Gadiel Score: 15 Allergies: yes [employer] History: hysterectomy Patient has homicidal thoughts: no [...] Updated: 04-Nov-2022 22:50 by Jayna August (RN) [facility] MR lumbar spine wo conon MR lumbar spine wo con [facility] [place] [address] MRI Report Signed Patient: Jerad Tracy MR#: [id number] 49 : 1975 Acct:[id number] Age/Sex: 47 / F ADM Date: 10/31/22 Loc: Room: Type: [facility] Attending Dr: Rose Marie SANTOSC Copies to: ELZBIETA Kaye Ordering Provider: ELZBIETA [...] Declan Bailey M.D.10/31/2022 12:58 PM Dictation Location: [place] [address] Transcribed By: [facility] 10/31/22 1258 Dictated By: Declan Bailey DO 10/31/22 1251 Signed By: 10/31/22 1258 Normal [facility] Bilirubin Test strip Ql (U)O rdered By: Mary Beth Sloan on 10-16-2022 Bilirubin Ql (U) Negative Negative [facility] Color Auto (U)Ordered By: Pascale Sloan on 10-16-2022 Color (U) Yellow Yellow [facility] Ketones Auto test strip (U) [Mass/Vol]Ordered By: Mary Beth Sloan on 10-16-2022 Ketones (U) [Mass/Vol] Negative Negative Fi [facility] Nitrite Test strip Ql (U)Ord ered By: Mary Beth Sloan on 10-16-2022 Nitrite Ql (U) Negative Negative [facility] Protein Auto test strip (U) [Mass/Vol]Ordered By: Mary Beth Sloan on 10-16-2022 Protein (U) [Mass/Vol] Negative Negative Fi [facility] Specific gravity Auto test s trip (U) [Rel density]Ordered By: Mary Beth Sloan on 10-16-2022 Specific gravity (U) [Rel density] 1.017 1.001-1.030 [facility] Urine clarity by refractomet ry automatedOrdered By: Mary Beth Sloan on 10-16-2022 Clarity Refractometry automated (U) Clear Clear [facility] Urine glucose measurement by automated test strip (mass/volume)Ordered By: Mary Beth Sloan on 10-16-2022 Glucose Auto test strip (U) [Mass/Vol] Normal mg/dL Normal [facility] Urine hemoglobin detection b y automated test stripOrdered By: Mary Beth Sloan on 10-16-2022 Hemoglobin Auto test strip Ql (U) Negative Negative [facility] Urine leukocyte esterase det ection by automated test stripOrdered By: Mary Beth Sloan on 10-16-2022 Leukocyte esterase Auto test strip Ql (U) Negative Negative [facility] Urobilinogen Auto test strip (U) [Mass/Vol]Ordered By: Mary Beth Sloan on 10-16-2022 Urobilinogen (U) [Mass/Vol] Normal mg/dL Normal [facility] pH Auto test strip (U)Ordere d By: Mary Beth Sloan on 10-16-2022 pH (U) 7.0 [pH] 5.0-9.0 [facility] Automated erythrocytes count in urine sediment (number/area)Ordered By: Narciso Bennett on 08-02-2022 RBC Auto (Urine sed) [#/Area] 1-2 [HPF] 0-4 [facility] Automated leukocytes count i n urine sediment (number/area)Ordered By: Narciso Bennett on 08-02-2022 WBC Auto (Urine sed) [#/Area] 3-4 [HPF] 0-4 [facility] Bilirubin Test strip Ql (U)O rdered By: Narciso Bennett on 08-02-2022 Bilirubin Ql (U) Negative Negative [facility] Color Auto (U)Ordered By: Romeo Bennett on 08-02-2022 Color (U) Yellow Yellow [facility] Ketones Auto test strip (U) [Mass/Vol]Ordered By: Narciso Bennett on 08-02-2022 Ketones (U) [Mass/Vol] Trace Negative Fi [facility] Laboratory - UrinalysisOrder ed By: Narciso Bennett on 08-02-2022 Hyaline casts LM Ql (Urine sed) 0-8 [LPF] 0-8 [facility] Nitrite Test strip Ql (U)Ord ered By: Narciso Bennett on 08-02-2022 Nitrite Ql (U) Negative Negative [facility] Protein Auto test strip (U) [Mass/Vol]Ordered By: Narciso Bennett on 08-02-2022 Protein (U) [Mass/Vol] Trace mg/dL Negative [facility] Specific gravity Auto test s trip (U) [Rel density]Ordered By: Narciso Bennett on 08-02-2022 Specific gravity (U) [Rel density] 1.037 1.001-1.030 [facility] Squamous epithelial cells de tection in urine sediment by light microscopyOrdered By: Narciso Bennett on 08-02-2022 Epithelial cells.squamous LM Ql (Urine sed) 1-2 [HPF] 0-2 [facility] Urine bacteria detection by automated methodOrdered By: Narciso Bennett on 08-02-2022 Bacteria Auto Ql (U) 1+ None Seen [facility] Urine clarity by refractomet ry automatedOrdered By: Narciso Bennett on 08-02-2022 Clarity Refractometry automated (U) Cloudy Clear [facility] Urine glucose measurement by automated test strip (mass/volume)Ordered By: Narciso Bennett on 08-02-2022 Glucose Auto test strip (U) [Mass/Vol] Normal mg/dL Normal [facility] Urine hemoglobin detection b y automated test stripOrdered By: Narciso Bennett on 08-02-2022 Hemoglobin Auto test strip Ql (U) Negative Negative [facility] Urine leukocyte esterase det ection by automated test stripOrdered By: Narciso Bennett on 08-02-2022 Leukocyte esterase Auto test strip Ql (U) Negative Negative [facility] Urobilinogen Auto test strip (U) [Mass/Vol]Ordered By: Narciso Bennett on 08-02-2022 Urobilinogen (U) [Mass/Vol] Normal mg/dL Normal [facility] pH Auto test strip (U)Ordere d By: Narciso Bennett on 08-02-2022 pH (U) 6.5 [pH] 5.0-9.0 [facility] Automated erythrocytes count in urine sediment (number/area)Ordered By: Mary Beth Sloan on 06-16-2022 RBC Auto (Urine sed) [#/Area] 1-2 [HPF] 0-4 [facility] Automated leukocytes count i n urine sediment (number/area)Ordered By: Mary Beth Sloan on 06-16-2022 WBC Auto (Urine sed) [#/Area] 0-1 [HPF] 0-4 [facility] Bilirubin Test strip Ql (U)O rdered By: Mary Beth Sloan on 06-16-2022 Bilirubin Ql (U) Negative Negative [facility] Color Auto (U)Ordered By: Pascale Sloan on 06-16-2022 Color (U) Yellow Yellow [facility] Ketones Auto test strip (U) [Mass/Vol]Ordered By: Mary Beth Sloan on 06-16-2022 Ketones (U) [Mass/Vol] Negative Negative [facility] - UrinalysisOrder ed By: Mary Beth Sloan on 06-16-2022 Hyaline casts LM Ql (Urine sed) None seen [LPF] 0-8 [facility] Nitrite Test strip Ql (U)Ord ered By: Mary Beth Sloan on 06-16-2022 Nitrite Ql (U) Negative Negative [facility] Protein Auto test strip (U) [Mass/Vol]Ordered By: Mary Beth Sloan on 06-16-2022 Protein (U) [Mass/Vol] Negative Negative [facility] Specific gravity Auto test s trip (U) [Rel density]Ordered By: Mary Beth Sloan on 06-16-2022 Specific gravity (U) [Rel density] 1.017 1.001-1.030 [facility] Squamous epithelial cells de tection in urine sediment by light microscopyOrdered By: Mary Beth Sloan on 06-16-2022 Epithelial cells.squamous LM Ql (Urine sed) 1-2 [HPF] 0-2 [facility] Urine bacteria detection by automated methodOrdered By: Mary Beth Sloan on 06-16-2022 Bacteria Auto Ql (U) None seen None Seen [facility] Urine clarity by refractomet ry automatedOrdered By: Mary Beth Sloan on 06-16-2022 Clarity Refractometry automated (U) Turbid Clear [facility] Urine glucose measurement by automated test strip (mass/volume)Ordered By: Mary Beth Sloan on 06-16-2022 Glucose Auto test strip (U) [Mass/Vol] Normal mg/dL Normal [facility] Urine hemoglobin detection b y automated test stripOrdered By: Mary Beth Sloan on 06-16-2022 Hemoglobin Auto test strip Ql (U) Negative Negative [facility] Urine leukocyte esterase det ection by automated test stripOrdered By: Mary Beth Sloan on 06-16-2022 Leukocyte esterase Auto test strip Ql (U) Negative Negative [facility] Urobilinogen Auto test strip (U) [Mass/Vol]Ordered By: Mary Beth Sloan on 06-16-2022 Urobilinogen (U) [Mass/Vol] Normal mg/dL Normal [facility] pH Auto test strip (U)Ordere d By: Mary Beth Sloan on 06-16-2022 pH (U) [pH] 5.0-9.0 [facility] Activated partial thrombopla stin time (aPTT) in platelet poor plasma by coagulation aOrdered By: José Miguel Mcnamara on 03-19-2022 aPTT Coag (PPP) [Time] 32.5 s 25.1-36.5 [facility] Albumin [Mass/volume] in Ser um or PlasmaOrdered By: José Miguel Mcnamara on 03-19-2022 Albumin [Mass/Vol] 3.6 g/dL 3.2-5.5 [facility] Basophils Auto (Bld) [#/Vol] Ordered By: José Miguel Mcnamara on 03-19-2022 Basophils (Bld) [#/Vol] 0.0 10*3/uL 0.0-0.2 [facility] Basophils/100 WBC Auto (Bld) Ordered By: José Miguel Mcnamara on 03-19-2022 Basophils/100 WBC (Bld) 0.1 % . [facility] COVID CepheidOrdered By: Anel ramirez Naima on 03-19-2022 SARS-CoV-2 (COVID-19) Ab IA Ql Negative Negative [facility] Comment on above: This is a duplicate [employer] X[employer] Xpress CoV-2/Flu/RSV Plus RNA by RT-PCR result to be used for statistical tracking purpose only. SARS-CoV-2 (COVID-19) RNA LINDSEY+probe Ql (Unsp spec) [facility] SARS-CoV-2 (COVID-19) RNA LINDSEY+probe Ql (Unsp spec) [facility] Creatinine and Glomerular fi ltration rate.predicted panel (S/P/Bld)Ordered By: José Miguel Mcanmara on 03-19-2022 Creatinine [Mass/Vol] 0.79 mg/dL 0.44-1.03 [facility] Direct bilirubin measurement Ordered By: José Miguel Mcnamara on 03-19-2022 Bilirubin.direct [Mass/Vol] 0.1 mg/dL 0.0-0.4 [facility] Eosinophils Auto (Bld) [#/Vo l]Ordered By: José Miguel Mcnamara on 03-19-2022 Eosinophils (Bld) [#/Vol] 0.0 10*3/uL 0.0-0.45 [facility] Eosinophils/100 WBC Auto (Bl d)Ordered By: José Miguel Mcnamara on 03-19-2022 Eosinophils/100 WBC (Bld) 0.8 % . [facility] Erythrocyte distribution wid th Auto (RBC) [Ratio]Ordered By: José Miguel Mcnamara on 03-19-2022 Erythrocyte distribution width (RBC) [Ratio] 13.2 % 11.9-15.3 [facility] Estimated glomerular filtrat ion rate (GFR) non- AmericanOrdered By: José Miguel Mcnamara on 03-19-2022 GFR/1.73 sq M.predicted among non-blacks MDRD (S/P/Bld) [Vol rate/Area] > 60 mL/Min [facility] Globulin Calc (S) [Mass/Vol] Ordered By: José Miguel Mcnamara on 03-19-2022 Globulin (S) [Mass/Vol] 3.3 g/dL [facility] HCG ( test) IA.rapi d Ql (U)Ordered By: Jorge Dan on 03-19-2022 HCG ( test) Ql (U) Negative [facility] Hematocrit Auto (Bld) [Volum e fraction]Ordered By: José Miguel Mcnamara on 03-19-2022 Hematocrit (Bld) [Volume fraction] 40.0 % 34.0-46.4 [facility] Hemoglobin [Mass/volume] in BloodOrdered By: José Miguel Mcnamara on 03-19-2022 Hemoglobin (Bld) [Mass/Vol] 13.5 g/dL 11.8-15.4 [facility] Laboratory - CoagulationOrde red By: José Miguel Mcnamara on 03-19-2022 PT Coag (PPP) [Time] 12.4 s 9.0-12.9 [facility] Leukocytes [#/volume] correc lisa for nucleated erythrocytes in Blood by Automated counOrdered By: José Miguel Mcnamara on 03-19-2022 WBC corrected for nucl RBC Auto (Bld) [#/Vol] 3.2 10*3/uL 3.8-11.6 [facility] Lymphocytes Auto (Bld) [#/Vo l]Ordered By: José Miguel Mcnamara on 03-19-2022 Lymphocytes (Bld) [#/Vol] 1.6 10*3/uL 1.00-4.8 [facility] Lymphocytes/100 WBC Auto (Bl d)Ordered By: José Miguel Mcnamara on 03-19-2022 Lymphocytes/100 WBC (Bld) 49.4 % . [facility] MCH Auto (RBC) [Entitic mass ]Ordered By: José Miguel Mcnamara on 03-19-2022 MCH (RBC) [Entitic mass] 31.6 pg 24.7-34.3 [facility] MCHC Auto (RBC) [Mass/Vol]Or dered By: José Miguel Mcnamara on 03-19-2022 MCHC (RBC) [Mass/Vol] 33.8 g/dL 32.0-35.0 [facility] MCV Auto (RBC) [Entitic vol] Ordered By: José Miguel Mcnamara on 03-19-2022 MCV (RBC) [Entitic vol] 93.4 fL 80-100 [facility] Monocyte distribution width [Entitic volume] in Blood by AutomatedOrdered By: José Miguel Mcnamara on 03-19-2022 Monocyte distribution width Auto (Bld) [Entitic vol] 19.83 % 0.00-20.00 [facility] Monocytes Auto (Bld) [#/Vol] Ordered By: José Miguel Mcnamara on 03-19-2022 Monocytes (Bld) [#/Vol] 0.4 10*3/uL 0.0-0.8 [facility] Monocytes/100 WBC Auto (Bld) Ordered By: José Miguel Mcnamara on 03-19-2022 Monocytes/100 WBC (Bld) 11.7 % . [facility] Neutrophils Auto (Bld) [#/Vo l]Ordered By: José Miguel Mcnamara on 03-19-2022 Neutrophils (Bld) [#/Vol] 1.2 10*3/uL 1.8-7.7 [facility] Neutrophils/100 WBC Auto (Bl d)Ordered By: José Miguel Mcnamara on 03-19-2022 Neutrophils/100 WBC (Bld) 38.0 % . [facility] No Panel InformationOrdered By: José Miguel Mcnamara on 03-19-2022 Estimated GFR () > 60 mL/Min [facility] Comment on above: GFR estimated refere nce range: According to KDOQI guidelines, <60 ml/min/1.73m2 is sufficient to diagnose a patient with chronic kidney disease. Pharmacy Creatinine Clearance (Chem 107.22 [facility] Nucleated erythrocytes [Pres ence] in Blood by Automated countOrdered By: José Miguel Mcnamara on 03-19-2022 Nucleated RBC Auto Ql (Bld) 0.3 /100{WBC} 0-0.5 [facility] Platelet mean volume Auto (B ld) [Entitic vol]Ordered By: José Miguel Mcnamara on 03-19-2022 Platelet mean volume (Bld) [Entitic vol] 9.5 fL 6.3-10.7 [facility] Platelet poor plasma interna tional normalized ratio (INR) by coagulation assay (relatOrdered By: José Miguel Mcnamara on 03-19-2022 INR Coag (PPP) [Relative time] 1.1 {INR} [facility] Comment on above: INR Therapeutic Rang e [...] 03-19-2022 Platelets (Bld) [#/Vol] 206 10*3/uL 150-450 [facility] Protein [Mass/volume] in Ser um or PlasmaOrdered By: José Miguel Mcnamara on 03-19-2022 Protein [Mass/Vol] 6.9 g/dL 6.1-7.9 [facility] RBC Auto (Bld) [#/Vol]Ordere d By: José Miguel Mcnamara on 03-19-2022 RBC (Bld) [#/Vol] 4.28 10*6/uL 3.60-5.00 [facility] Serum or plasma alanine cardoso otransferase measurement without P-5'-P (enzymatic activiOrdered By: José Miguel Mcnamara on 03-19-2022 ALT No additional P-5'-P [Catalytic activity/Vol] 86 U/L 1060 [facility] Serum or plasma albumin/glob ulin mass ratioOrdered By: José Miguel Mcnamara on 03-19-2022 Albumin/Globulin [Mass ratio] 1.1 {ratio} [facility] Serum or plasma alkaline sintia sphatase measurement (enzymatic activity/volume)Ordered By: José Miguel Mcnamara on 03-19-2022 ALP [Catalytic activity/Vol] 65 U/L 32-92 [facility] Serum or plasma anion gap de terminationOrdered By: José Miguel Mcnamara on 03-19-2022 Anion gap [Moles/Vol] 9.9 mmol/L 6.0-15.0 [facility] Serum or plasma aspartate am inotransferase measurement (enzymatic activity/volume)Ordered By: José Miguel Mcnamara on 03-19-2022 AST [Catalytic activity/Vol] 74 U/L 1042 [facility] Serum or plasma calcium skyla urement (mass/volume)Ordered By: José Miguel Mcnamara on 03-19-2022 Calcium [Mass/Vol] 8.3 mg/dL 8.2-10.2 [facility] Serum or plasma chloride florin surement (moles/volume)Ordered By: José Miguel Mcnamara on 03-19-2022 Chloride [Moles/Vol] 108 mmol/L 95-114 [facility] Serum or plasma glucose skyla urement (mass/volume)Ordered By: José Migule Mcnamara on 03-19-2022 Glucose [Mass/Vol] 100 mg/dL 70-100 [facility] Comment on above: ADA recommended refe rence rangeRandom Glucose Reference Range is dependent on time and content of last meal. Glucose of more than 200 mg/dL in a nonstressed, ambulatory subject supports the diagnosis of Diabetes Mellitus. Serum or plasma non-glucuron idated bilirubin measurement (mass/volume)Ordered By: José Miguel Mcnamara on 03-19-2022 Bilirubin.indirect [Mass/Vol] 0.4 mg/dL [facility] Serum or plasma potassium me asurement (moles/volume)Ordered By: José Miguel Mcnamara on 03-19-2022 Potassium [Moles/Vol] 3.2 mmol/L 3.5-5.1 [facility] Serum or plasma sodium measu rement (moles/volume)Ordered By: José Miguel Mcnamara on 03-19-2022 Sodium [Moles/Vol] 136 mmol/L 136-146 [facility] Serum or plasma total biliru bin measurement (mass/volume)Ordered By: José Miguel Mcnamara on 03-19-2022 Bilirubin [Mass/Vol] 0.5 mg/dL 0.3-1.2 [facility] Serum or plasma total carbon dioxide measurement (moles/volume)Ordered By: José Miguel Mcnamara on 03-19-2022 CO2 [Moles/Vol] 21.3 mmol/L 22.0-30.0 [facility] Serum or plasma urea nitroge n measurement (mass/volume)Ordered By: José Miguel Mcnamara on 03-19-2022 Urea nitrogen [Mass/Vol] 5 mg/dL 9-23 [facility] WBC Auto (Bld) [#/Vol]Ordere d By: José Miguel Mcnamara on 03-19-2022 WBC (Bld) [#/Vol] 3.2 10*3/uL 3.8-11.6 [facility] Basophils Auto (Bld) [#/Vol] Ordered By: Berto Villasenor on 03-17-2022 Basophils (Bld) [#/Vol] 0.0 10*3/uL 0.0-0.2 [facility] Basophils/100 WBC Auto (Bld) Ordered By: Berto Villasenor on 03-17-2022 Basophils/100 WBC (Bld) 0.6 % . [facility] Body fluid albumin measureme nt (mass/volume)Ordered By: Berto Villasenor on 03-17-2022 Albumin (Body fld) [Mass/Vol] 3.7 g/dL 3.2-5.5 [facility] Creatinine and Glomerular fi ltration rate.predicted panel (S/P/Bld)Ordered By: Berto Villasenor on 03-17-2022 Creatinine [Mass/Vol] 0.80 mg/dL 0.44-1.03 [facility] Direct bilirubin measurement Ordered By: Berto Villasenor on 03-17-2022 Bilirubin.direct [Mass/Vol] 0.2 mg/dL 0.0-0.4 [facility] Eosinophils Auto (Bld) [#/Vo l]Ordered By: Berto Villasenor on 03-17-2022 Eosinophils (Bld) [#/Vol] 0.0 10*3/uL 0.0-0.45 [facility] Eosinophils/100 WBC Auto (Bl d)Ordered By: Berto Villasenor on 03-17-2022 Eosinophils/100 WBC (Bld) 0.5 % . [facility] Erythrocyte distribution wid th Auto (RBC) [Ratio]Ordered By: Berot Villasenor on 03-17-2022 Erythrocyte distribution width (RBC) [Ratio] 13.3 % 11.9-15.3 [facility] Estimated glomerular filtrat ion rate (GFR) non- AmericanOrdered By: Berto Villasenor on 03-17-2022 GFR/1.73 sq M.predicted among non-blacks MDRD (S/P/Bld) [Vol rate/Area] > 60 mL/Min [facility] Globulin Calc (S) [Mass/Vol] Ordered By: Berto Villasenor on 03-17-2022 Globulin (S) [Mass/Vol] 3.1 g/dL [facility] Hematocrit Auto (Bld) [Volum e fraction]Ordered By: Berto Villasenor on 03-17-2022 Hematocrit (Bld) [Volume fraction] 40.8 % 34.0-46.4 [facility] Hemoglobin [Mass/volume] in BloodOrdered By: Berto Villasenor on 03-17-2022 Hemoglobin (Bld) [Mass/Vol] 13.8 g/dL 11.8-15.4 [facility] Leukocytes [#/volume] correc lisa for nucleated erythrocytes in Blood by Automated counOrdered By: Berto Villasenor on 03-17-2022 WBC corrected for nucl RBC Auto (Bld) [#/Vol] 5.2 10*3/uL 3.8-11.6 [facility] Lymphocytes Auto (Bld) [#/Vo l]Ordered By: Berto Villasenor on 03-17-2022 Lymphocytes (Bld) [#/Vol] 1.8 10*3/uL 1.00-4.8 [facility] Lymphocytes/100 WBC Auto (Bl d)Ordered By: Berto Villasenor on 03-17-2022 Lymphocytes/100 WBC (Bld) 34.2 % . [facility] MCH Auto (RBC) [Entitic mass ]Ordered By: Berto Villasenor on 03-17-2022 MCH (RBC) [Entitic mass] 31.8 pg 24.7-34.3 [facility] MCHC Auto (RBC) [Mass/Vol]Or dered By: Berto Villasenor on 03-17-2022 MCHC (RBC) [Mass/Vol] 33.7 g/dL 32.0-35.0 [facility] MCV Auto (RBC) [Entitic vol] Ordered By: Berto Villasenor on 03-17-2022 MCV (RBC) [Entitic vol] 94.2 fL 80-100 [facility] Monocyte distribution width [Entitic volume] in Blood by AutomatedOrdered By: Berto Villasenor on 03-17-2022 Monocyte distribution width Auto (Bld) [Entitic vol] 20.70 % 0.00-20.00 [facility] Comment on above: For adults in ED, MD W > 20.0 may be associated with a higher risk of sepsis during the first 12 hrs of hospital admission Monocytes Auto (Bld) [#/Vol] Ordered By: Berto Villasenor on 03-17-2022 Monocytes (Bld) [#/Vol] 0.5 10*3/uL 0.0-0.8 [facility] Monocytes/100 WBC Auto (Bld) Ordered By: Berto Villasenor on 03-17-2022 Monocytes/100 WBC (Bld) 9.1 % . [facility] Neutrophils Auto (Bld) [#/Vo l]Ordered By: Berto Villasenor on 03-17-2022 Neutrophils (Bld) [#/Vol] 2.9 10*3/uL 1.8-7.7 [facility] Neutrophils/100 WBC Auto (Bl d)Ordered By: Berto Villasenor on 03-17-2022 Neutrophils/100 WBC (Bld) 55.6 % . [facility] No Panel InformationOrdered By: Berto Villasenor on 03-17-2022 Estimated GFR () > 60 mL/Min [facility] Comment on above: GFR estimated refere nce range: According to KDOQI guidelines, <60 ml/min/1.73m2 is sufficient to diagnose a patient with chronic kidney disease. Pharmacy Creatinine Clearance (Chem 106.22 [facility] Nucleated erythrocytes [Pres ence] in Blood by Automated countOrdered By: Berto Villasenor on 03-17-2022 Nucleated RBC Auto Ql (Bld) 0.6 /100{WBC} 0-0.5 [facility] Platelet mean volume Auto (B ld) [Entitic vol]Ordered By: Berto Villasenor on 03-17-2022 Platelet mean volume (Bld) [Entitic vol] 9.0 fL 6.3-10.7 [facility] Platelets Auto (Bld) [#/Vol] Ordered By: Berto Villasenor on 03-17-2022 Platelets (Bld) [#/Vol] 225 10*3/uL 150-450 [facility] Protein [Mass/volume] in Ser um or PlasmaOrdered By: Berto Villasenor on 03-17-2022 Protein [Mass/Vol] 6.8 g/dL 6.1-7.9 [facility] RBC Auto (Bld) [#/Vol]Ordere d By: Berto Villasenor on 03-17-2022 RBC (Bld) [#/Vol] 4.33 10*6/uL 3.60-5.00 [facility] Serum or plasma alanine cardoso otransferase measurement without P-5'-P (enzymatic activiOrdered By: Berto Villasenor on 03-17-2022 ALT No additional P-5'-P [Catalytic activity/Vol] 87 U/L 10-60 [facility] Serum or plasma albumin/glob ulin mass ratioOrdered By: Berto Villasenor on 03-17-2022 Albumin/Globulin [Mass ratio] 1.2 {ratio} [facility] Serum or plasma alkaline sintia sphatase measurement (enzymatic activity/volume)Ordered By: Berto Villasenor on 03-17-2022 ALP [Catalytic activity/Vol] 71 U/L 32-92 [facility] Serum or plasma anion gap de terminationOrdered By: Berto Villasenor on 03-17-2022 Anion gap [Moles/Vol] 12.6 mmol/L 6.0-15.0 [facility] Serum or plasma aspartate am inotransferase measurement (enzymatic activity/volume)Ordered By: Berto Villasenor on 03-17-2022 AST [Catalytic activity/Vol] 71 U/L 10-42 [facility] Serum or plasma calcium skyla urement (mass/volume)Ordered By: Berto Villasenor on 03-17-2022 Calcium [Mass/Vol] 8.5 mg/dL 8.2-10.2 [facility] Serum or plasma chloride florin surement (moles/volume)Ordered By: Berto Villasenor on 03-17-2022 Chloride [Moles/Vol] 110 mmol/L 95-114 [facility] Serum or plasma glucose skyla urement (mass/volume)Ordered By: Berto Villasenor on 03-17-2022 Glucose [Mass/Vol] 98 mg/dL 70-100 [facility] Comment on above: ADA recommended refe rence rangeRandom Glucose Reference Range is dependent on time and content of last meal. Glucose of more than 200 mg/dL in a nonstressed, ambulatory subject supports the diagnosis of Diabetes Mellitus. Serum or plasma non-glucuron idated bilirubin measurement (mass/volume)Ordered By: Berto Villasenor on 03-17-2022 Bilirubin.indirect [Mass/Vol] 0.4 mg/dL [facility] Serum or plasma potassium me asurement (moles/volume)Ordered By: Berto Villasenor on 03-17-2022 Potassium [Moles/Vol] 4.1 mmol/L 3.5-5.1 [facility] Serum or plasma sodium measu rement (moles/volume)Ordered By: Berto Villasenor on 03-17-2022 Sodium [Moles/Vol] 138 mmol/L 136-146 [facility] Serum or plasma total biliru bin measurement (mass/volume)Ordered By: Berto Villasenor on 03-17-2022 Bilirubin [Mass/Vol] 0.6 mg/dL 0.3-1.2 [facility] Serum or plasma total carbon dioxide measurement (moles/volume)Ordered By: Berto Villasenor on 03-17-2022 CO2 [Moles/Vol] 19.5 mmol/L 22.0-30.0 [facility] Serum or plasma urea nitroge n measurement (mass/volume)Ordered By: Berto Villasenor on 03-17-2022 Urea nitrogen [Mass/Vol] 9 mg/dL 9 [facility] WBC Auto (Bld) [#/Vol]Ordere d By: Berto Villasenor on 03-17-2022 WBC (Bld) [#/Vol] 5.2 10*3/uL 3.8-11.6 [facility] Activated partial thrombopla stin time (aPTT) in platelet poor plasma by coagulation aOrdered By: Cameron Rene on 03-14-2022 aPTT Coag (PPP) [Time] 22.4 s 25.1-36.5 [facility] Albumin [Mass/volume] in Ser um or PlasmaOrdered By: Cameron Rene on 03-14-2022 Albumin [Mass/Vol] 3.7 g/dL 3.2-5.5 [facility] Automated erythrocytes count in urine sediment (number/area)Ordered By: Cameron Rene on 03-14-2022 RBC Auto (Urine sed) [#/Area] 0-1 [HPF] 0-4 [facility] Automated leukocytes count i n urine sediment (number/area)Ordered By: Cameron Rene on 03-14-2022 WBC Auto (Urine sed) [#/Area] 0-1 [HPF] 0-4 [facility] Basophils Auto (Bld) [#/Vol] Ordered By: Cameron Rene on 03-14-2022 Basophils (Bld) [#/Vol] 0.0 10*3/uL 0.0-0.2 [facility] Basophils/100 WBC Auto (Bld) Ordered By: Cameron Rene on 03-14-2022 Basophils/100 WBC (Bld) 0.2 % . [facility] Bilirubin Test strip Ql (U)O rdered By: Cameron Rene on 03-14-2022 Bilirubin Ql (U) Negative Negative [facility] Color Auto (U)Ordered By: Bo Rene on 03-14-2022 Color (U) Dark yellow Yellow [facility] Creatinine and Glomerular fi ltration rate.predicted panel (S/P/Bld)Ordered By: Cameron Rene on 03-14-2022 Creatinine [Mass/Vol] 0.86 mg/dL 0.44-1.03 [facility] Eosinophils Auto (Bld) [#/Vo l]Ordered By: Cameron Rene on 03-14-2022 Eosinophils (Bld) [#/Vol] 0.1 10*3/uL 0.0-0.45 [facility] Eosinophils/100 WBC Auto (Bl d)Ordered By: Cameron Rene on 03-14-2022 Eosinophils/100 WBC (Bld) 1.2 % . [facility] Erythrocyte distribution wid th Auto (RBC) [Ratio]Ordered By: Cameron Rene on 03-14-2022 Erythrocyte distribution width (RBC) [Ratio] 13.3 % 11.9-15.3 [facility] Estimated glomerular filtrat ion rate (GFR) non- AmericanOrdered By: Cameron Rene on 03-14-2022 GFR/1.73 sq M.predicted among non-blacks MDRD (S/P/Bld) [Vol rate/Area] > 60 mL/Min [facility] Fecal occult blood detection by immunochemistryOrdered By: Cameron Rene on 03-14-2022 Hemoglobin.gastrointes tinal Ql (Stl) [facility] Globulin Calc (S) [Mass/Vol] Ordered By: Cameron Rene on 03-14-2022 Globulin (S) [Mass/Vol] 3.8 g/dL [facility] Hematocrit Auto (Bld) [Volum e fraction]Ordered By: Cameron Reen on 03-14-2022 Hematocrit (Bld) [Volume fraction] 43.7 % 34.0-46.4 [facility] Hemoglobin [Mass/volume] in BloodOrdered By: Cameron Rene on 03-14-2022 Hemoglobin (Bld) [Mass/Vol] 14.6 g/dL 11.8-15.4 [facility] Ketones Auto test strip (U) [Mass/Vol]Ordered By: Cameron Rene on 03-14-2022 Ketones (U) [Mass/Vol] Trace Negative [facility] - CoagulationOrde red By: Cameron Rene on 03-14-2022 PT Coag (PPP) [Time] 12.4 s 9.0-12.9 [facility] - UrinalysisOrder ed By: Cameron Rene on 03-14-2022 Hyaline casts LM Ql (Urine sed) 0-8 [LPF] 0-8 [facility] Leukocytes [#/volume] correc lisa for nucleated erythrocytes in Blood by Automated counOrdered By: Cameron Rene on 03-14-2022 WBC corrected for nucl RBC Auto (Bld) [#/Vol] 6.8 10*3/uL 3.8-11.6 [facility] Lymphocytes Auto (Bld) [#/Vo l]Ordered By: Cameron Rene on 03-14-2022 Lymphocytes (Bld) [#/Vol] 2.2 10*3/uL 1.00-4.8 [facility] Lymphocytes/100 WBC Auto (Bl d)Ordered By: Cameron Rene on 12-21-2022 Lymphocytes/100 WBC (Bld) 32.9 % . [facility] MCH Auto (RBC) [Entitic mass ]Ordered By: Cameron Rene on 03-14-2022 MCH (RBC) [Entitic mass] 31.2 pg 24.7-34.3 [facility] MCHC Auto (RBC) [Mass/Vol]Or dered By: Cameron Rene on 03-14-2022 MCHC (RBC) [Mass/Vol] 33.3 g/dL 32.0-35.0 [facility] MCV Auto (RBC) [Entitic vol] Ordered By: Cameron Rene on 03-14-2022 MCV (RBC) [Entitic vol] 93.7 fL 80-100 [facility] Monocyte distribution width [Entitic volume] in Blood by AutomatedOrdered By: Cameron Rene on 03-14-2022 Monocyte distribution width Auto (Bld) [Entitic vol] 18.75 % 0.00-20.00 [facility] Monocytes Auto (Bld) [#/Vol] Ordered By: Cameron Rene on 03-14-2022 Monocytes (Bld) [#/Vol] 0.4 10*3/uL 0.0-0.8 [facility] Monocytes/100 WBC Auto (Bld) Ordered By: Cameron Rene on 03-14-2022 Monocytes/100 WBC (Bld) 6.1 % . [facility] Neutrophils Auto (Bld) [#/Vo l]Ordered By: Cameron Rene on 03-14-2022 Neutrophils (Bld) [#/Vol] 4.0 10*3/uL 1.8-7.7 [facility] Neutrophils/100 WBC Auto (Bl d)Ordered By: Cameron Rene on 03-14-2022 Neutrophils/100 WBC (Bld) 59.6 % . [facility] Nitrite Test strip Ql (U)Ord ered By: Cameron Rene on 03-14-2022 Nitrite Ql (U) Negative Negative [facility] No Panel InformationOrdered By: Cameron Rene on 03-14-2022 Estimated GFR () > 60 mL/Min [facility] Comment on above: GFR estimated refere nce range: According to KDOQI guidelines, <60 ml/min/1.73m2 is sufficient to diagnose a patient with chronic kidney disease. Pharmacy Creatinine Clearance (Chem 98.52 [facility] Nucleated erythrocytes [Pres ence] in Blood by Automated countOrdered By: Cameron Rene on 03-14-2022 Nucleated RBC Auto Ql (Bld) 0.1 /100{WBC} 0-0.5 [facility] Platelet mean volume Auto (B ld) [Entitic vol]Ordered By: Cameron Rene on 03-14-2022 Platelet mean volume (Bld) [Entitic vol] 9.1 fL 6.3-10.7 [facility] Platelet poor plasma interna tional normalized ratio (INR) by coagulation assay (relatOrdered By: Cameron Rene on 03-14-2022 INR Coag (PPP) [Relative time] 1.1 {INR} [facility] Comment on above: INR Therapeutic Rang e [...] 03-14-2022 Platelets (Bld) [#/Vol] 279 10*3/uL 150-450 [facility] Protein Auto test strip (U) [Mass/Vol]Ordered By: Cameron Rene on 03-14-2022 Protein (U) [Mass/Vol] Trace mg/dL Negative [facility] Protein [Mass/volume] in Ser um or PlasmaOrdered By: Cameron Rene on 03-14-2022 Protein [Mass/Vol] 7.5 g/dL 6.1-7.9 [facility] RBC Auto (Bld) [#/Vol]Ordere d By: Cameron Rene on 03-14-2022 RBC (Bld) [#/Vol] 4.66 10*6/uL 3.60-5.00 [facility] Serum or plasma alanine cardoso otransferase measurement without P-5'-P (enzymatic activiOrdered By: Cameron Rene on 03-14-2022 ALT No additional P-5'-P [Catalytic activity/Vol] 86 U/L 10-60 [facility] Serum or plasma albumin/glob ulin mass ratioOrdered By: Cameron Rene on 03-14-2022 Albumin/Globulin [Mass ratio] 1.0 {ratio} [facility] Serum or plasma alkaline sintia sphatase measurement (enzymatic activity/volume)Ordered By: Cameron Rene on 03-14-2022 ALP [Catalytic activity/Vol] 69 U/L 32-92 [facility] Serum or plasma anion gap de terminationOrdered By: Cameron Rene on 03-14-2022 Anion gap [Moles/Vol] 11.6 mmol/L 6.0-15.0 [facility] Serum or plasma aspartate am inotransferase measurement (enzymatic activity/volume)Ordered By: Cameron Rene on 03-14-2022 AST [Catalytic activity/Vol] 70 U/L 10 [facility] Serum or plasma calcium skyla urement (mass/volume)Ordered By: Cameron Rene on 03-14-2022 Calcium [Mass/Vol] 8.3 mg/dL 8.2-10.2 [facility] Serum or plasma chloride florin surement (moles/volume)Ordered By: Cameron Rene on 03-14-2022 Chloride [Moles/Vol] 108 mmol/L 95-114 [facility] Serum or plasma glucose skyla urement (mass/volume)Ordered By: Cameron Rene on 03-14-2022 Glucose [Mass/Vol] 105 mg/dL 70-100 [facility] Comment on above: ADA recommended refe rence rangeRandom Glucose Reference Range is dependent on time and content of last meal. Glucose of more than 200 mg/dL in a nonstressed, ambulatory subject supports the diagnosis of Diabetes Mellitus. Serum or plasma potassium me asurement (moles/volume)Ordered By: Cameron Rene on 03-14-2022 Potassium [Moles/Vol] 3.9 mmol/L 3.5-5.1 [facility] Serum or plasma sodium measu rement (moles/volume)Ordered By: Cameron Rene on 03-14-2022 Sodium [Moles/Vol] 135 mmol/L 136-146 [facility] Serum or plasma total biliru bin measurement (mass/volume)Ordered By: Cameron Rene on 03-14-2022 Bilirubin [Mass/Vol] 0.7 mg/dL 0.3-1.2 [facility] Serum or plasma total carbon dioxide measurement (moles/volume)Ordered By: Cameron Rene on 03-14-2022 CO2 [Moles/Vol] 19.3 mmol/L 22.0-30.0 [facility] Serum or plasma urea nitroge n measurement (mass/volume)Ordered By: Cameron Rene on 03-14-2022 Urea nitrogen [Mass/Vol] 11 mg/dL 9-23 [facility] Specific gravity Auto test s trip (U) [Rel density]Ordered By: Cameron Rene on 03-14-2022 Specific gravity (U) [Rel density] 1.030 1.001-1.030 [facility] Squamous epithelial cells de tection in urine sediment by light microscopyOrdered By: Cameron Rene on 03-14-2022 Epithelial cells.squamous LM Ql (Urine sed) 3-4 [HPF] 0-2 [facility] Urine bacteria detection by automated methodOrdered By: Cameron Rene on 03-14-2022 Bacteria Auto Ql (U) None seen None Seen [facility] Urine clarity by refractomet ry automatedOrdered By: Cameron Rene on 03-14-2022 Clarity Refractometry automated (U) Clear Clear [facility] Urine glucose measurement by automated test strip (mass/volume)Ordered By: Cameron Rene on 03-14-2022 Glucose Auto test strip (U) [Mass/Vol] Normal mg/dL Normal [facility] Urine hemoglobin detection b y automated test stripOrdered By: Cameron Rene on 03-14-2022 Hemoglobin Auto test strip Ql (U) Negative Negative [facility] Urine lactic acid measuremen tOrdered By: Cameron Rene on 03-14-2022 Lactate (U) [Moles/Vol] 1.0 mmol/L 0.5-2.2 [facility] Urine leukocyte esterase det ection by automated test stripOrdered By: Cameron Rene on 03-14-2022 Leukocyte esterase Auto test strip Ql (U) Negative Negative [facility] Urobilinogen Auto test strip (U) [Mass/Vol]Ordered By: Cameron Sanchezy on 03-14-2022 Urobilinogen (U) [Mass/Vol] Normal mg/dL Normal [facility] WBC Auto (Bld) [#/Vol]Ordere d By: Cameron Rojasarthy on 03-14-2022 WBC (Bld) [#/Vol] 6.8 10*3/uL 3.8-11.6 [facility] pH Auto test strip (U)Ordere d By: Cameron Edgard on 03-14-2022 pH (U) 6.5 [pH] 5.0-9.0 [facility] Urine culture routineOrdered By: Dalton Ceja on 02-05-2022 Bacteria identified Cx Nom (U) Escherichia coli [facility] Automated erythrocytes count in urine sediment (number/area)Ordered By: Dalton Ceja on 02-03-2022 RBC Auto (Urine sed) [#/Area] 0-1 [HPF] 0-4 [facility] Automated leukocytes count i n urine sediment (number/area)Ordered By: Dalton Ceja on 02-03-2022 WBC Auto (Urine sed) [#/Area] Innumerable [HPF] 0-4 [facility] Automated urine hyaline cast s count (number/volume)Ordered By: Dalton Ceja on 02-03-2022 Hyaline casts Auto (U) [#/Vol] None seen [LPF] 0-1 [facility] Basophils Auto (Bld) [#/Vol] Ordered By: Dalton Ceja on 02-03-2022 Basophils (Bld) [#/Vol] 0.0 10*3/uL 0.0-0.2 [facility] Basophils/100 WBC Auto (Bld) Ordered By: Dalton Ceja on 02-03-2022 Basophils/100 WBC (Bld) 0.5 % . [facility] Bilirubin Test strip Ql (U)O rdered By: Dalton Ceja on 02-03-2022 Bilirubin Ql (U) Negative Negative [facility] Body fluid albumin measureme nt (mass/volume)Ordered By: Dalton Ceja on 02-03-2022 Albumin (Body fld) [Mass/Vol] 3.7 g/dL 3.2-5.5 [facility] Casts typing in urine sedime nt by light microscopyOrdered By: Dalton Ceja on 02-03-2022 Casts LM Nom (Urine sed) None seen [LPF] None Seen [facility] Color Auto (U)Ordered By: Han Ceja on 02-03-2022 Color (U) Yellow Yellow [facility] Creatinine and Glomerular fi ltration rate.predicted panel (S/P/Bld)Ordered By: Dalton Ceja on 02-03-2022 Creatinine [Mass/Vol] 0.78 mg/dL 0.44-1.03 [facility] Direct bilirubin measurement Ordered By: Dalton Ceja on 02-03-2022 Bilirubin.direct [Mass/Vol] 0.1 mg/dL 0.0-0.4 [facility] Eosinophils Auto (Bld) [#/Vo l]Ordered By: Dalton Ceja on 02-03-2022 Eosinophils (Bld) [#/Vol] 0.1 10*3/uL 0.0-0.45 [facility] Eosinophils/100 WBC Auto (Bl d)Ordered By: Dalton Ceja on 02-03-2022 Eosinophils/100 WBC (Bld) 1.7 % . [facility] Erythrocyte distribution wid th Auto (RBC) [Ratio]Ordered By: Dalton Ceja on 02-03-2022 Erythrocyte distribution width (RBC) [Ratio] 13.4 % 11.9-15.3 [facility] Estimated glomerular filtrat ion rate (GFR) non- AmericanOrdered By: Dalton Ceja on 02-03-2022 GFR/1.73 sq M.predicted among non-blacks MDRD (S/P/Bld) [Vol rate/Area] > 60 mL/Min [facility] Globulin Calc (S) [Mass/Vol] Ordered By: Dalton Ceja on 02-03-2022 Globulin (S) [Mass/Vol] 3.4 g/dL [facility] HCG ( test) IA.rapi d Ql (U)Ordered By: Dalton Ceja on 02-03-2022 HCG ( test) Ql (U) Negative [facility] Hematocrit Auto (Bld) [Volum e fraction]Ordered By: Dalton Ceja on 02-03-2022 Hematocrit (Bld) [Volume fraction] 43.8 % 34.0-46.4 [facility] Hemoglobin [Mass/volume] in BloodOrdered By: Dalton Ceja on 02-03-2022 Hemoglobin (Bld) [Mass/Vol] 14.5 g/dL 11.8-15.4 [facility] Ketones Auto test strip (U) [Mass/Vol]Ordered By: Dalton Ceja on 02-03-2022 Ketones (U) [Mass/Vol] Negative Negative [facility] - Chemistry and C hemistry - challengeOrdered By: Dalton Ceja on 02-03-2022 Lipase [Catalytic activity/Vol] 30.0 U/L 22-51 [facility] - CoagulationOrde red By: Dalton Ceja on 02-03-2022 PT Coag (PPP) [Time] 11.9 s 9.0-12.9 [facility] - Hematology and Cell countsOrdered By: Dalton Ceja on 02-03-2022 Nucleated RBC/100 WBC (Bld) [Ratio] 0.1 % 0-0.5 [facility] Leukocytes [#/volume] in Blo od by Automated countOrdered By: Dalton Ceja on 02-03-2022 WBC (Bld) [#/Vol] 8.6 10*3/uL 4.5-11.0 [facility] Lymphocytes Auto (Bld) [#/Vo l]Ordered By: Dalton Ceja on 02-03-2022 Lymphocytes (Bld) [#/Vol] 2.6 10*3/uL 1.00-4.8 [facility] Lymphocytes/100 WBC Auto (Bl d)Ordered By: Dalton Ceja on 02-03-2022 Lymphocytes/100 WBC (Bld) 30.4 % . [facility] MCH Auto (RBC) [Entitic mass ]Ordered By: Dalton Ceja on 02-03-2022 MCH (RBC) [Entitic mass] 31.4 pg 24.7-34.3 [facility] MCHC Auto (RBC) [Mass/Vol]Or dered By: Dalton Ceja on 02-03-2022 MCHC (RBC) [Mass/Vol] 33.1 g/dL 32.0-35.0 [facility] MCV Auto (RBC) [Entitic vol] Ordered By: Dalton Ceja on 02-03-2022 MCV (RBC) [Entitic vol] 94.9 fL 80-100 [facility] Monocytes Auto (Bld) [#/Vol] Ordered By: Dalton Ceja on 02-03-2022 Monocytes (Bld) [#/Vol] 0.6 10*3/uL 0.0-0.8 [facility] Monocytes/100 WBC Auto (Bld) Ordered By: Dalton Ceja on 02-03-2022 Monocytes/100 WBC (Bld) 7.4 % . [facility] Neutrophils Auto (Bld) [#/Vo l]Ordered By: Dalton Ceja on 02-03-2022 Neutrophils (Bld) [#/Vol] 5.1 10*3/uL 1.8-7.7 [facility] Neutrophils/100 WBC Auto (Bl d)Ordered By: Dalton Ceja on 02-03-2022 Neutrophils/100 WBC (Bld) 60.0 % . [facility] Nitrite Test strip Ql (U)Ord ered By: Dalton Ceja on 02-03-2022 Nitrite Ql (U) Positive Negative [facility] No Panel InformationOrdered By: Dalton Ceja on 02-03-2022 Estimated GFR () > 60 mL/Min [facility] Comment on above: GFR estimated refere nce range: According to KDOQI guidelines, <60 ml/min/1.73m2 is sufficient to diagnose a patient with chronic kidney disease. Pharmacy Creatinine Clearance (Chem 111.62 [facility] Platelet mean volume Auto (B ld) [Entitic vol]Ordered By: Dalton Ceja on 02-03-2022 Platelet mean volume (Bld) [Entitic vol] 9.6 fL 6.3-10.7 [facility] Platelet poor plasma interna tional normalized ratio (INR) by coagulation assay (relatOrdered By: Dalton Ceja on 02-03-2022 INR Coag (PPP) [Relative time] 1.1 {INR} [facility] Comment on above: INR Therapeutic Rang e [...] 02-03-2022 Platelets (Bld) [#/Vol] 269 10*3/uL 150-450 [facility] Protein Auto test strip (U) [Mass/Vol]Ordered By: Dalton Ceja on 02-03-2022 Protein (U) [Mass/Vol] 100 mg/dL Negative [facility] Protein [Mass/volume] in Ser um or PlasmaOrdered By: Dalton Ceja on 02-03-2022 Protein [Mass/Vol] 7.1 g/dL 6.1-7.9 [facility] RBC Auto (Bld) [#/Vol]Ordere d By: Dalton Ceja on 02-03-2022 RBC (Bld) [#/Vol] 4.62 10*6/uL 3.60-5.00 [facility] Serum or plasma alanine cardoso otransferase measurement without P-5'-P (enzymatic activiOrdered By: Dalton Ceja on 02-03-2022 ALT No additional P-5'-P [Catalytic activity/Vol] 74 U/L 10-60 [facility] Serum or plasma albumin/glob ulin mass ratioOrdered By: Dalton Ceja on 02-03-2022 Albumin/Globulin [Mass ratio] 1.1 {ratio} [facility] Serum or plasma alkaline sintia sphatase measurement (enzymatic activity/volume)Ordered By: Dalton Ceja on 02-03-2022 ALP [Catalytic activity/Vol] 78 U/L 32-92 [facility] Serum or plasma anion gap de terminationOrdered By: Dlaton Ceja on 02-03-2022 Anion gap [Moles/Vol] 14.0 mmol/L 6.0-15.0 [facility] Serum or plasma aspartate am inotransferase measurement (enzymatic activity/volume)Ordered By: Dalton Ceja on 02-03-2022 AST [Catalytic activity/Vol] 54 U/L 10-42 [facility] Serum or plasma calcium skyla urement (mass/volume)Ordered By: Dalton Ceja on 02-03-2022 Calcium [Mass/Vol] 8.9 mg/dL 8.2-10.2 [facility] Serum or plasma chloride florin surement (moles/volume)Ordered By: Dalton Ceja on 02-03-2022 Chloride [Moles/Vol] 109 mmol/L 95-114 [facility] Serum or plasma glucose skyla urement (mass/volume)Ordered By: Dalton Ceja on 02-03-2022 Glucose [Mass/Vol] 107 mg/dL 70-100 [facility] Comment on above: ADA recommended refe rence rangeRandom Glucose Reference Range is dependent on time and content of last meal. Glucose of more than 200 mg/dL in a nonstressed, ambulatory subject supports the diagnosis of Diabetes Mellitus. Serum or plasma non-glucuron idated bilirubin measurement (mass/volume)Ordered By: Dalton Ceja on 02-03-2022 Bilirubin.indirect [Mass/Vol] 0.3 mg/dL [facility] Serum or plasma potassium me asurement (moles/volume)Ordered By: Dalton Ceja on 02-03-2022 Potassium [Moles/Vol] 3.6 mmol/L 3.5-5.1 [facility] Serum or plasma sodium measu rement (moles/volume)Ordered By: Dalton Ceja on 02-03-2022 Sodium [Moles/Vol] 137 mmol/L 136-146 [facility] Serum or plasma total biliru bin measurement (mass/volume)Ordered By: Dalton Ceja on 02-03-2022 Bilirubin [Mass/Vol] 0.4 mg/dL 0.3-1.2 [facility] Serum or plasma total carbon dioxide measurement (moles/volume)Ordered By: Dalton Ceja on 02-03-2022 CO2 [Moles/Vol] 17.6 mmol/L 22.0-30.0 [facility] Serum or plasma urea nitroge n measurement (mass/volume)Ordered By: Dalton Ceja on 02-03-2022 Urea nitrogen [Mass/Vol] 15 mg/dL 9- [facility] Specific gravity Auto test s trip (U) [Rel density]Ordered By: Dalton Ceja on 02-03-2022 Specific gravity (U) [Rel density] 1.020 1.001-1.030 [facility] Squamous epithelial cells de tection in urine sediment by light microscopyOrdered By: Dalton Ceja on 02-03-2022 Epithelial cells.squamous LM Ql (Urine sed) 3-4 [HPF] 0-2 [facility] Urine bacteria detection by automated methodOrdered By: Dalton Ceja on 02-03-2022 Bacteria Auto Ql (U) 4+ None Seen [facility] Urine clarity by refractomet ry automatedOrdered By: Dalton Ceja on 02-03-2022 Clarity Refractometry automated (U) Cloudy Clear [facility] Urine culture routineOrdered By: Dalton Ceja on 02-03-2022 Bacteria identified Cx Nom (U) Escherichia coli [facility] Urine glucose measurement by automated test strip (mass/volume)Ordered By: Dalton Ceja on 02-03-2022 Glucose Auto test strip (U) [Mass/Vol] Normal mg/dL Normal [facility] Urine hemoglobin detection b y automated test stripOrdered By: Dalton Ceja on 02-03-2022 Hemoglobin Auto test strip Ql (U) 3+ Negative [facility] Urine leukocyte esterase det ection by automated test stripOrdered By: Dalton Ceja on 02-03-2022 Leukocyte esterase Auto test strip Ql (U) 4+ Negative [facility] Urobilinogen Auto test strip (U) [Mass/Vol]Ordered By: Dalton Ceja on 02-03-2022 Urobilinogen (U) [Mass/Vol] Normal mg/dL Normal [facility] pH Auto test strip (U)Ordere d By: Dalton Ceja on 02-03-2022 pH (U) 7.0 [pH] 5.0-9.0 [facility] Activated partial thrombopla stin time (aPTT) in platelet poor plasma by coagulation aOrdered By: Berto Villasenor on 11-13-2021 aPTT Coag (PPP) [Time] 31.1 s 25.1-36.5 [facility] Albumin [Mass/volume] in Ser um or PlasmaOrdered By: Berto Villasenor on 11-13-2021 Albumin [Mass/Vol] 3.5 g/dL 3.2-5.5 [facility] Basophils Auto (Bld) [#/Vol] Ordered By: Berto Villasenor on 11-13-2021 Basophils (Bld) [#/Vol] 0.0 10*3/uL 0.0-0.2 [facility] Basophils/100 WBC Auto (Bld) Ordered By: Berto Villasenor on 11-13-2021 Basophils/100 WBC (Bld) 0.5 % . [facility] Blood hemoglobin measurement (mass/volume)Ordered By: Berto Villasenor on 11-13-2021 Hemoglobin (Bld) [Mass/Vol] 14.8 g/dL 11.8-15.4 [facility] Blood leukocytes automated c ount (number/volume)Ordered By: Berto Villasenor on 11-13-2021 WBC (Bld) [#/Vol] 7.8 10*3/uL 4.5-11.0 [facility] Creatinine and Glomerular fi ltration rate.predicted panel (S/P/Bld)Ordered By: Berto Villasenor on 11-13-2021 Creatinine [Mass/Vol] 0.92 mg/dL 0.44-1.03 [facility] Direct bilirubin measurement Ordered By: Berto Villasenor on 11-13-2021 Bilirubin.direct [Mass/Vol] mg/dL 0.0-0.4 [facility] Eosinophils Auto (Bld) [#/Vo l]Ordered By: Berto Villasenor on 11-13-2021 Eosinophils (Bld) [#/Vol] 0.2 10*3/uL 0.0-0.45 [facility] Eosinophils/100 WBC Auto (Bl d)Ordered By: Berto Villasenor on 11-13-2021 Eosinophils/100 WBC (Bld) 2.5 % . [facility] Erythrocyte distribution wid th Auto (RBC) [Ratio]Ordered By: Berto Villasenor on 11-13-2021 Erythrocyte distribution width (RBC) [Ratio] 13.6 % 11.9-15.3 [facility] Estimated glomerular filtrat ion rate (GFR) non- AmericanOrdered By: Berto Villasenor on 11-13-2021 GFR/1.73 sq M.predicted among non-blacks MDRD (S/P/Bld) [Vol rate/Area] > 60 mL/Min [facility] Globulin Calc (S) [Mass/Vol] Ordered By: Berto Villasenor on 11-13-2021 Globulin (S) [Mass/Vol] 3.6 g/dL [facility] Hematocrit Auto (Bld) [Volum e fraction]Ordered By: Berto Villasenor on 11-13-2021 Hematocrit (Bld) [Volume fraction] 45.1 % 34.0-46.4 [facility] Laboratory - Chemistry and C hemistry - challengeOrdered By: Berto Villasenor on 11-13-2021 Lipase [Catalytic activity/Vol] 33.0 U/L 22-51 [facility] - CoagulationOrde red By: Berto Villasenor on 11-13-2021 PT Coag (PPP) [Time] 11.7 s 9.0-12.9 [facility] - Hematology and Cell countsOrdered By: Berto Villasenor on 11-13-2021 Nucleated RBC/100 WBC (Bld) [Ratio] 0.1 % 0-0.5 [facility] Lactate dehydrogenase measur ement (enzymatic activity/volume)Ordered By: Berto Villasenor on 11-13-2021 LDH (Unsp spec) [Catalytic activity/Vol] 154 U/L 45-190 [facility] Lymphocytes Auto (Bld) [#/Vo l]Ordered By: Berto Villasenor on 11-13-2021 Lymphocytes (Bld) [#/Vol] 2.5 10*3/uL 1.00-4.8 [facility] Lymphocytes/100 WBC Auto (Bl d)Ordered By: Berto Villasenor on 11-13-2021 Lymphocytes/100 WBC (Bld) 31.5 % . [facility] MCH Auto (RBC) [Entitic mass ]Ordered By: Berto Villasenor on 11-13-2021 MCH (RBC) [Entitic mass] 30.8 pg 24.7-34.3 [facility] MCHC Auto (RBC) [Mass/Vol]Or dered By: Berto Villasenor on 11-13-2021 MCHC (RBC) [Mass/Vol] 32.8 g/dL 32.0-35.0 [facility] MCV Auto (RBC) [Entitic vol] Ordered By: Berto Villasenor on 11-13-2021 MCV (RBC) [Entitic vol] 94.1 fL 80-100 [facility] Monocyte %Ordered By: Berto Villasenor on 11-13-2021 Monocyte % 27 umol/L 11-35 [facility] Monocytes Auto (Bld) [#/Vol] Ordered By: Berto Villasenor on 11-13-2021 Monocytes (Bld) [#/Vol] 0.5 10*3/uL 0.0-0.8 [facility] Monocytes/100 WBC Auto (Bld) Ordered By: Berto Villasenor on 11-13-2021 Monocytes/100 WBC (Bld) 6.5 % . [facility] Neutrophils Auto (Bld) [#/Vo l]Ordered By: Berto Villasenor on 11-13-2021 Neutrophils (Bld) [#/Vol] 4.6 10*3/uL 1.8-7.7 [facility] Neutrophils/100 WBC Auto (Bl d)Ordered By: Berto Villasenor on 11-13-2021 Neutrophils/100 WBC (Bld) 59.0 % . [facility] No Panel InformationOrdered By: Berto Villasenor on 11-13-2021 Estimated GFR () > 60 mL/Min [facility] Comment on above: GFR estimated refere nce range: According to KDOQI guidelines, <60 ml/min/1.73m2 is sufficient to diagnose a patient with chronic kidney disease. Pharmacy Creatinine Clearance (Chem 92.37 [facility] Platelet mean volume Auto (B ld) [Entitic vol]Ordered By: Berto Villasenor on 08-22-2022 Platelet mean volume (Bld) [Entitic vol] 9.2 fL 6.3-10.7 [facility] Platelet poor plasma interna tional normalized ratio (INR) by coagulation assay (relatOrdered By: Berto Villasenor on 11-13-2021 INR Coag (PPP) [Relative time] 1.0 {INR} [facility] Comment on above: INR Therapeutic Rang e [...] 11-13-2021 Platelets (Bld) [#/Vol] 281 10*3/uL 150-450 [facility] Protein [Mass/volume] in Ser um or PlasmaOrdered By: Berto Villasenor on 11-13-2021 Protein [Mass/Vol] 7.1 g/dL 6.1-7.9 [facility] RBC Auto (Bld) [#/Vol]Ordere d By: Berto Villasenor on 11-13-2021 RBC (Bld) [#/Vol] 4.79 10*6/uL 3.60-5.00 [facility] Serum or plasma alanine cardoso otransferase measurement without P-5'-P (enzymatic activiOrdered By: Berto Villasenor on 11-13-2021 ALT No additional P-5'-P [Catalytic activity/Vol] 96 U/L 10-60 [facility] Serum or plasma albumin/glob ulin mass ratioOrdered By: Berto Villasenor on 11-13-2021 Albumin/Globulin [Mass ratio] 1.0 {ratio} [facility] Serum or plasma alkaline sintia sphatase measurement (enzymatic activity/volume)Ordered By: Berto Villasenor on 11-13-2021 ALP [Catalytic activity/Vol] 87 U/L 32-92 [facility] Serum or plasma aspartate am inotransferase measurement (enzymatic activity/volume)Ordered By: Berto Villasenor on 11-13-2021 AST [Catalytic activity/Vol] 64 U/L 10-42 [facility] Serum or plasma calcium skyla urement (mass/volume)Ordered By: Berto Villasenor on 11-13-2021 Calcium [Mass/Vol] 9.0 mg/dL 8.2-10.2 [facility] Serum or plasma chloride florin surement (moles/volume)Ordered By: Berto Villasenor on 11-13-2021 Chloride [Moles/Vol] 101 mmol/L 95-114 [facility] Serum or plasma glucose skyla urement (mass/volume)Ordered By: Berto Villasenor on 11-13-2021 Glucose [Mass/Vol] 96 mg/dL 70-100 [facility] Comment on above: ADA recommended refe [...] Berto Villasenor on 11-13-2021 Bilirubin.indirect [Mass/Vol] TNP [facility] Comment on above: Test not performed Serum or plasma potassium me asurement (moles/volume)Ordered By: Berto Villasenor on 11-13-2021 Potassium [Moles/Vol] 4.0 mmol/L 3.5-5.1 [facility] Serum or plasma sodium measu rement (moles/volume)Ordered By: Berto Villasenor on 11-13-2021 Sodium [Moles/Vol] 135 mmol/L 136-146 [facility] Serum or plasma total biliru bin measurement (mass/volume)Ordered By: Berto Villasenor on 11-13-2021 Bilirubin [Mass/Vol] 0.4 mg/dL 0.3-1.2 [facility] Serum or plasma total carbon dioxide measurement (moles/volume)Ordered By: Berto Villasenor on 11-13-2021 CO2 [Moles/Vol] 24.3 mmol/L 22.0-30.0 [facility] Serum or plasma urea nitroge n measurement (mass/volume)Ordered By: Berto Villasenor on 11-13-2021 Urea nitrogen [Mass/Vol] 14 mg/dL 12-15 [facility] Basophils Auto (Bld) [#/Vol] Ordered By: Estelle Veliz on 10-30-2021 Basophils (Bld) [#/Vol] 0.1 10*3/uL 0.0-0.2 [facility] Basophils/100 WBC Auto (Bld) Ordered By: Estelle Veliz on 10-30-2021 Basophils/100 WBC (Bld) 0.8 % . [facility] Blood hemoglobin measurement (mass/volume)Ordered By: Estelle Veliz on 10-30-2021 Hemoglobin (Bld) [Mass/Vol] 14.9 g/dL 11.8-15.4 [facility] Blood leukocytes automated c ount (number/volume)Ordered By: Estelle Veliz on 10-30-2021 WBC (Bld) [#/Vol] 8.2 10*3/uL 4.5-11.0 [facility] Body fluid albumin measureme nt (mass/volume)Ordered By: Estelle Veliz on 10-30-2021 Albumin (Body fld) [Mass/Vol] 3.5 g/dL 3.2-5.5 [facility] Creatinine and Glomerular fi ltration rate.predicted panel (S/P/Bld)Ordered By: Estelle Veliz on 10-30-2021 Creatinine [Mass/Vol] 0.74 mg/dL 0.44-1.03 [facility] Diagnostic impression [Inter pretation] in Specimen NarrativeOrdered By: Estelle Veliz on 10-30-2021 Diagnostic impression [employer] (Unsp spec) [Interp] See comment . [facility] Comment on above: Positive HCV antibod y screen with the presence of HCV RNA is consistent with active infection. Performed at: [address] [id number] Angiography Nurse: Gavin Mott PhD, Phone: [phone] Performed at: [address] [id number] Angiography Nurse: Brianda Durant MD, Phone: [phone] Positive HCV antibod y screen with the presence of HCV RNAis consistent with active infection.Performed at: [address] [id number] Director: Gavin Mott PhD, Phone: [phone] at: [address] [id number] Director: Brianda Durant MD, Phone: [phone] Eosinophils Auto (Bld) [#/Vo l]Ordered By: Estelle Veliz on 10-30-2021 Eosinophils (Bld) [#/Vol] 0.1 10*3/uL 0.0-0.45 [facility] Eosinophils/100 WBC Auto (Bl d)Ordered By: Estelle Veliz on 10-30-2021 Eosinophils/100 WBC (Bld) 1.4 % . [facility] Erythrocyte distribution wid th Auto (RBC) [Ratio]Ordered By: Estelle Veliz on 10-30-2021 Erythrocyte distribution width (RBC) [Ratio] 13.4 % 11.9-15.3 [facility] Estimated glomerular filtrat ion rate (GFR) non- AmericanOrdered By: Estelle Veliz on 10-30-2021 GFR/1.73 sq M.predicted among non-blacks MDRD (S/P/Bld) [Vol rate/Area] > 60 mL/Min [facility] Globulin Calc (S) [Mass/Vol] Ordered By: Estelle Veliz on 10-30-2021 Globulin (S) [Mass/Vol] 3.5 g/dL [facility] Hematocrit Auto (Bld) [Volum e fraction]Ordered By: Estelle Veliz on 10-30-2021 Hematocrit (Bld) [Volume fraction] 45.0 % 34.0-46.4 [facility] Hepatitis B virus surface Ag [Presence] in Serum or Plasma by ImmunoassayOrdered By: Estelle Veliz on 10-30-2021 HBV surface Ag IA Ql Negative Negative [facility] Hepatitis C virus RNA [Units /volume] (viral load) in Serum or Plasma by LINDSEY with probOrdered By: Estelle Veliz on 10-30-2021 HCV RNA LINDSEY+probe Qn [id number] [IU]/mL . [facility] Hepatitis C virus RNA [log u nits/volume] (viral load) in Serum or Plasma by LINDSEY withOrdered By: Estelle Veliz on 10-30-2021 HCV RNA LINDSEY+probe [Log units/Vol] 7.124 . [facility] Comment on above: Result Units: log10 IU/mL Laboratory - Chemistry and C hemistry - challengeOrdered By: Estelle Veliz on 10-30-2021 Amylase [Catalytic activity/Vol] 77 U/L 7-64 [facility] Laboratory - Hematology and Cell countsOrdered By: Estelle Veliz on 10-30-2021 Nucleated RBC/100 WBC (Bld) [Ratio] 0.0 % 0-0.5 [facility] Lymphocytes Auto (Bld) [#/Vo l]Ordered By: Estelle Veliz on 10-30-2021 Lymphocytes (Bld) [#/Vol] 1.9 10*3/uL 1.00-4.8 [facility] Lymphocytes/100 WBC Auto (Bl d)Ordered By: Estelle Veliz on 10-30-2021 Lymphocytes/100 WBC (Bld) 23.9 % . [facility] MCH Auto (RBC) [Entitic mass ]Ordered By: Estelle Veliz on 10-30-2021 MCH (RBC) [Entitic mass] 31.0 pg 24.7-34.3 [facility] MCHC Auto (RBC) [Mass/Vol]Or dered By: Estelle Veliz on 10-30-2021 MCHC (RBC) [Mass/Vol] 33.1 g/dL 32.0-35.0 [facility] MCV Auto (RBC) [Entitic vol] Ordered By: Estelle Veliz on 10-30-2021 MCV (RBC) [Entitic vol] 93.5 fL 80-100 [facility] Monocytes Auto (Bld) [#/Vol] Ordered By: Estelle Veliz on 10-30-2021 Monocytes (Bld) [#/Vol] 0.7 10*3/uL 0.0-0.8 [facility] Monocytes/100 WBC Auto (Bld) Ordered By: Estelle Veliz on 10-30-2021 Monocytes/100 WBC (Bld) 8.5 % . [facility] Neutrophils Auto (Bld) [#/Vo l]Ordered By: Estelle Veliz on 10-30-2021 Neutrophils (Bld) [#/Vol] 5.3 10*3/uL 1.8-7.7 [facility] Neutrophils/100 WBC Auto (Bl d)Ordered By: Estelle Veliz on 10-30-2021 Neutrophils/100 WBC (Bld) 65.4 % . [facility] No Panel InformationOrdered By: Estelle Veliz on 10-30-2021 Estimated GFR () > 60 mL/Min [facility] Comment on above: GFR estimated refere nce range: According to KDOQI guidelines, <60 ml/min/1.73m2 is sufficient to diagnose a patient with chronic kidney disease. Hepatitis A IgM Antibody Negative Negative [facility] Hepatitis B Core IgM Antibody Negative Negative [facility] Hepatitis C RNA Qnt (PCR) Test Info See comment . [facility] Comment on above: The quantitative ran ge of this assay is 15 IU/mL to 100 million IU/mL. The quantitative ran ge of this assay is 15 IU/mL to 100million IU/mL. Pharmacy Creatinine Clearance (Chem N/A [facility] Platelet mean volume Auto (B ld) [Entitic vol]Ordered By: Estelle Veliz on 10-30-2021 Platelet mean volume (Bld) [Entitic vol] 9.6 fL 6.3-10.7 [facility] Platelets Auto (Bld) [#/Vol] Ordered By: Estelle Veliz on 10-30-2021 Platelets (Bld) [#/Vol] 251 10*3/uL 150-450 [facility] Protein [Mass/volume] in Ser um or PlasmaOrdered By: Estelle Veliz on 10-30-2021 Protein [Mass/Vol] 7.0 g/dL 6.1-7.9 [facility] RBC Auto (Bld) [#/Vol]Ordere d By: Estelle Veliz on 10-30-2021 RBC (Bld) [#/Vol] 4.81 10*6/uL 3.60-5.00 [facility] Serum nuclear antibody titer Ordered By: Estelle Veliz on 10-30-2021 Nuclear Ab (S) [Titer] Negative . [facility] Comment on above: Negative <1:80 Borderline 1:80 Positive >1:80 ICAP nomenclature: AC-[id number] For more information about Hep-2 cell patterns use ANApatterns.org, the official website for the International Consensus on Antinuclear Antibody (BEATRIZ) Patterns (ICAP). Speckled cytoplasmic fluorescence is present. The antibodies noted in this pattern may be associated with, but not restricted to, primary biliary cirrhosis (PBC), polymyositis and dermatomyositis (PM/DM), and/or systemic lupus erythematosus (SLE). Performed at: [facility] [id number] Angiography Nurse: Gavin Mott PhD, Phone: [phone] Negative <1:80 Borde rline 1:80 Positive >1:80ICAP nomenclature: [id number] more information about Hep-2 cell patterns useANApatterns.org, the official website for theInternational Consensus on Antinuclear Antibody (BEATRIZ)Patterns (ICAP).Speckled cytoplasmic fluorescence is present. Theantibodies noted in this pattern may be associated with,but not restricted to, primary biliary cirrhosis (PBC),polymyositis and dermatomyositis (PM/DM), and/or systemiclupus erythematosus (SLE).Performed at: [facility] [id number] Director: Gavin Mott PhD, Phone: [phone] Serum or plasma alanine cardoso otransferase measurement without P-5'-P (enzymatic activiOrdered By: Estelle Veliz on 10-30-2021 ALT No additional P-5'-P [Catalytic activity/Vol] 118 U/L 10-60 [facility] Serum or plasma albumin/glob ulin mass ratioOrdered By: Estelle Veliz on 10-30-2021 Albumin/Globulin [Mass ratio] 1.0 {ratio} [facility] Serum or plasma alkaline sintia sphatase measurement (enzymatic activity/volume)Ordered By: Estelle Veliz on 10-30-2021 ALP [Catalytic activity/Vol] 79 U/L 32-92 [facility] Serum or plasma aspartate am inotransferase measurement (enzymatic activity/volume)Ordered By: Estelle Veliz on 10-30-2021 AST [Catalytic activity/Vol] 95 U/L 10-42 [facility] Serum or plasma calcium skyla urement (mass/volume)Ordered By: Estelle Veliz on 10-30-2021 Calcium [Mass/Vol] 8.8 mg/dL 8.2-10.2 [facility] Serum or plasma chloride florin surement (moles/volume)Ordered By: Estelle Veliz on 10-30-2021 Chloride [Moles/Vol] 101 mmol/L 95-114 [facility] Serum or plasma glucose skyla urement (mass/volume)Ordered By: Estelle Veliz on 10-30-2021 Glucose [Mass/Vol] 100 mg/dL 70-100 [facility] Comment on above: ADA recommended refe [...] IA [Rel units/Vol] >11.0 s/co ratio 0.0-0.9 [facility] Serum or plasma potassium me asurement (moles/volume)Ordered By: Estelle Veliz on 10-30-2021 Potassium [Moles/Vol] 4.2 mmol/L 3.5-5.1 [facility] Serum or plasma sodium measu rement (moles/volume)Ordered By: Estelle Veliz on 10-30-2021 Sodium [Moles/Vol] 136 mmol/L 136-146 [facility] Serum or plasma total biliru bin measurement (mass/volume)Ordered By: Estelle Veliz on 10-30-2021 Bilirubin [Mass/Vol] 0.3 mg/dL 0.3-1.2 [facility] Serum or plasma total carbon dioxide measurement (moles/volume)Ordered By: Estelle Veliz on 10-30-2021 CO2 [Moles/Vol] 22.6 mmol/L 22.0-30.0 [facility] Serum or plasma urea nitroge n measurement (mass/volume)Ordered By: Estelle Veliz on 10-30-2021 Urea nitrogen [Mass/Vol] 11 mg/dL 12-15 [facility] CBC AUTO DIFFon 10-15-2021 BASO # 0.0 103/ul Normal 0.0-0.1 [facility] Comment on above: Performed By: #### C BC #### [facility] [address] [place] [address] Dr. Nolan Biggs Basophils/100 WBC (Bld) 0.2 % Normal 0.2-2.0 [facility] Comment on above: Performed By: #### C BC #### [facility] [address] [address] [address] Nolan Bgigs EO # 0.1 103/ul Normal 0.0-0.7 [facility] Comment on above: Performed By: #### C BC #### [facility] [address] [place] [address] Dr. Nolan Biggs Eosinophils/100 WBC (Bld) 2.0 % Normal 0.9-7.0 [facility] Comment on above: Performed By: #### C BC #### [facility] [address] [place] [address] Dr. Nolan Biggs Erythrocyte distribution width (RBC) [Ratio] 12.7 % Normal 11.0-15.0 [facility] Comment on above: Performed By: #### C BC #### [facility] [address] [address] [address] Nolan Biggs Hematocrit (Bld) [Volume fraction] 43.7 % Normal 36.0-48.0 [facility] Comment on above: Performed By: #### C BC #### [facility] [address] [place] [address] Dr. Nolan Biggs Hemoglobin (Bld) [Mass/Vol] 14.8 g/dL Normal 12.0-16.0 [facility] Comment on above: Performed By: #### C BC #### [facility] [address] [place] [address] Dr. Nolan Biggs IG # 0.02 10e3/ul Normal 0.00-0.03 [facility] Comment on above: Performed By: #### C BC #### [facility] [address] [place] [address] Dr. Nolan Biggs IG % 0.3 % Normal 0.0-0.5 [facility] Comment on above: Performed By: #### C BC #### [facility] [address] [place] [address] Dr. Nolan Biggs LYMPH # 0.4 103/ul Critically low 1.2-3.8 [facility] Comment on above: Performed By: #### C BC #### [facility] [address] [place] [address] Dr. Nolan Biggs Lymphocytes/100 WBC (Bld) 7.0 % Critically low 20.5-60.0 [facility] Comment on above: Performed By: #### C BC #### [facility] [address] [place] [address] Dr. Nolan Biggs MANUAL DIFF REQ NO Normal [facility] Comment on above: Performed By: #### C BC #### [facility] [address] [place] [address] Dr. Nolan Biggs MCH (RBC) [Entitic mass] 31.3 pg Normal 26.7-34.0 [facility] Comment on above: Performed By: #### C BC #### [facility] [address] [place] [address] Dr. Nolan Biggs MCHC (RBC) [Mass/Vol] 33.9 g/dL Normal 29.9-35.2 [facility] Comment on above: Performed By: #### C BC #### [facility] [address] [place] [address] Dr. Nolan Biggs MCV (RBC) [Entitic vol] 92.4 fL Normal 81.0-99.0 [facility] Comment on above: Performed By: #### C BC #### [facility] [address] [place] [address] Dr. Nolan Biggs MONO # 0.3 103/ul Normal 0.3-0.8 [facility] Comment on above: Performed By: #### C BC #### [facility] [address] [place] [address] Dr. Nolan Biggs Monocytes/100 WBC (Bld) 5.7 % Normal 1.7-12.0 [facility] Comment on above: Performed By: #### C BC #### [facility] [address] [place] [address] Dr. Nolan Biggs NEUT # 5.1 103/ul Normal 1.4-6.5 [facility] Comment on above: Performed By: #### C BC #### [facility] [address] [place] [address] Dr. Nolan Biggs Neutrophils/100 WBC (Bld) 84.8 % Critically high 43.0-75.0 [facility] Comment on above: Performed By: #### C BC #### [facility] [address] [place] [address] Dr. Nolan Biggs Platelet mean volume (Bld) [Entitic vol] 10.5 fL Normal 9.5-13.5 [facility] Comment on above: Performed By: #### C BC #### [facility] [address] [place] [address] Dr. Nolan Biggs PLT 218 103/ul Normal 150-450 [facility] Comment on above: Performed By: #### C BC #### [facility] [address] [place] [address] Dr. Nolan Biggs RBC 4.73 106/ul Normal 4.20-5.40 [facility] Comment on above: Performed By: #### C BC #### [facility] [address] [place] [address] Dr. Nolan Biggs WBC 6.0 103/ul Normal 4.0-11.0 [facility] Comment on above: Performed By: #### C BC #### [facility] [address] [address] [address] Nolan DUONG URINE PROFILEon 2 Bilirubin Ql (U) Negative Normal NEGATIVE [facility] Comment on above: Performed By: #### E RUR, PREGU #### [facility] [address] [place] [address] Dr. Nolan Biggs Clarity (U) CLEAR Normal CLEAR [facility] Comment on above: Performed By: #### E RUR, PREGU #### [facility] [address] [place] [address] Dr. Nolan Biggs Color (U) YELLOW Normal YELLOW [facility] Comment on above: Performed By: #### E RUR, PREGU #### [facility] [address] [place] [address] Dr. Nolan URBINA A micrscopic examination will be performed if indicated. Normal [facility] Comment on above: Performed By: #### E RUR, PREGU #### [facility] [address] [place] [address] Dr. Nolan Biggs Glucose Ql (U) Negative Normal NEGATIVE [facility] Comment on above: Performed By: #### E RUR, PREGU #### [facility] [address] [place] [address] Dr. Nolan Biggs Hemoglobin Ql (U) Negative Normal NEGATIVE [facility] Comment on above: Performed By: #### E RUR, PREGU #### [facility] [address] [place] [address] Dr. Nolan Biggs Ketones Ql (U) Negative Normal NEGATIVE [facility] Comment on above: Performed By: #### E RUR, PREGU #### [facility] [address] [place] [address] Dr. Nolan Biggs LEUKOCYTES Negative Normal NEGATIVE [facility] Comment on above: Performed By: #### E RUR, PREGU #### [facility] [address] [place] [address] Dr. Nolan Biggs Nitrite Ql (U) Negative Normal NEGATIVE [facility] Comment on above: Performed By: #### E RUR, PREGU #### [facility] [address] [place] [address] Dr. Nolan Biggs pH (U) 7.0 [pH] Normal 5-9 [facility] Comment on above: Performed By: #### E RUR, PREGU #### [facility] [address] [place] [address] Dr. Nolan Biggs SPEC GRAVITY 1.020 Normal 1.005-<=1.02 5 [facility] Comment on above: Performed By: #### E RUR, PREGU #### [facility] [address] [place] [address] Dr. Nolan Biggs UA PROTEIN TRACE Normal NEGATIVE/ TRACE [facility] Comment on above: Performed By: #### E RUR, PREGU #### [facility] [address] [place] [address] Dr. Nolan Biggs UR MICRO IND NOT INDICATED Normal [facility] Comment on above: Performed By: #### E RUR, PREGU #### [facility] [address] [place] [address] Dr. Nolan Biggs Urobilinogen Qn (U) 1.0 {Jan'U}/dL Normal 0.2 - 1. 0 [facility] Comment on above: Performed By: #### E RUR, PREGU #### [facility] [address] [place] [address] Dr. Nolan Biggs LIPASEon 10-15-2021 Lipase [Catalytic activity/Vol] 56.0 U/L Critically low 73.0-393.0 [facility] Comment on above: Performed By: #### L IPA, CMP #### [facility] [address] [place] [address] Dr. Nolan Biggs URon 10-15-2021 , QUAL Negative Normal NEGATIVE [facility] Comment on above: Performed By: #### E RUR, PREGU #### [facility] [address] [place] [address] Dr. Nolan Biggs PROF 14(COMP METB)on 022 Albumin [Mass/Vol] 3.5 g/dL Normal 3.4-5.0 [facility] Comment on above: Performed By: #### L IPA, CMP #### [facility] [address] [address] [address] Nolan Biggs Albumin/Globulin [Mass ratio] 0.9 {ratio} Normal [facility] Comment on above: Performed By: #### L IPA, CMP #### [facility] [address] [address] [address] Nolan Biggs ALP [Catalytic activity/Vol] 78 U/L Normal 46-116 [facility] Comment on above: Performed By: #### L IPA, CMP #### [facility] [address] [address] [address] Nolan Biggs ALT [Catalytic activity/Vol] 157 U/L Critically high 14-59 [facility] Comment on above: Performed By: #### L IPA, CMP #### [facility] [address] [address] [address] Nolan Biggs Anion gap [Moles/Vol] 11.3 mmol/L Normal [facility] Comment on above: Performed By: #### L IPA, CMP #### [facility] [address] [address] [address] Nolan Biggs AST [Catalytic activity/Vol] 84 U/L Critically high 15-37 [facility] Comment on above: Performed By: #### L IPA, CMP #### [facility] [address] [address] [address] Nolan Biggs Bilirubin [Mass/Vol] 0.5 mg/dL Normal 0.2-1.0 [facility] Comment on above: Performed By: #### L IPA, CMP #### [facility] [address] [address] [address] Nolan Biggs Calcium [Mass/Vol] 8.2 mg/dL Critically low 8.5-10.1 [facility] Comment on above: Performed By: #### L IPA, CMP #### [facility] [address] [address] [address] Nolan Biggs Chloride [Moles/Vol] 106 mmol/L Normal 98-107 [facility] Comment on above: Performed By: #### L IPA, CMP #### [facility] [address] [place] [address] Dr. Nolan Biggs CO2 [Moles/Vol] 23.6 mmol/L Normal 21.0-32.0 [facility] Comment on above: Performed By: #### L IPA, CMP #### [facility] [address] [place] [address] Dr. Nolan Biggs Creatinine [Mass/Vol] 0.83 mg/dL Normal 0.55-1.02 [facility] Comment on above: Performed By: #### L IPA, CMP #### [facility] [address] [place] [address] Dr. Nolan Biggs EGFR-AF [place] >60 Normal >=60 [facility] Comment on above: Performed By: #### L IPA, CMP #### [facility] [address] [place] [address] Dr. Nolan Biggs EGFR-NON AF [place] >60 Normal >=60 [facility] Comment on above: Performed By: #### L IPA, CMP #### [facility] [address] [place] [address] Dr. Nolan Biggs Globulin (S) [Mass/Vol] 4.0 g/dL Normal [facility] Comment on above: Performed By: #### L IPA, CMP #### [facility] [address] [address] [address] Nolan Biggs Glucose [Mass/Vol] 115 mg/dL Critically high 74-106 [facility] Comment on above: Performed By: #### L IPA, CMP #### [facility] [address] [address] [address] Nolan Biggs Potassium [Moles/Vol] 3.9 mmol/L Normal 3.5-5.1 [facility] Comment on above: Performed By: #### L IPA, CMP #### [facility] [address] [place] [address] Dr. Nolan Biggs Protein [Mass/Vol] 7.5 g/dL Normal 6.4-8.2 [facility] Comment on above: Performed By: #### L IPA, CMP #### [facility] [address] [place] [address] Dr. Nolan Biggs Sodium [Moles/Vol] 137 mmol/L Normal 136-145 [facility] Comment on above: Performed By: #### L IPA, CMP #### [facility] [address] [address] [address] Nolan Biggs Urea nitrogen [Mass/Vol] 13.0 mg/dL Normal 7.0-18.0 [facility] Comment on above: Performed By: #### L IPA, CMP #### [facility] [address] [address] [address] Nolan Biggs Urea nitrogen/Creatinine [Mass ratio] 15.7 mg/mg Normal [facility] Comment on above: Performed By: #### L IPA, CMP #### [facility] [address] [address] [address] Nolan Biggs XR ABD FLAT UP_PA [...] by: PROMISE MCKEON Date: 2021-10-15 12:58 Normal [facility] Serum or plasma potassium me asurement (moles/volume)Ordered By: José Miguel Mcnamara on 10-10-2021 Potassium [Moles/Vol] 3.9 mmol/L 3.5-5.1 [facility] Activated partial thrombopla stin time (aPTT) in platelet poor plasma by coagulation aOrdered By: José Miguel Mcnamara on 10-09-2021 aPTT Coag (PPP) [Time] 24.4 s 25.1-36.5 [facility] Automated erythrocytes count in urine sediment (number/area)Ordered By: PROVIDER TEMP on 10-09-2021 RBC Auto (Urine sed) [#/Area] 1-2 [HPF] 0-4 [facility] Automated leukocytes count i n urine sediment (number/area)Ordered By: PROVIDER TEMP on 10-09-2021 WBC Auto (Urine sed) [#/Area] 0-1 [HPF] 0-4 [facility] Basophils Auto (Bld) [#/Vol] Ordered By: José Miguel Mcnamara on 10-09-2021 Basophils (Bld) [#/Vol] 0.1 10*3/uL 0.0-0.2 [facility] Basophils/100 WBC Auto (Bld) Ordered By: José Miguel Mcnamara on 10-09-2021 Basophils/100 WBC (Bld) 0.7 % . [facility] Bilirubin Test strip Ql (U)O rdered By: PROVIDER TEMP on 10-09-2021 Bilirubin Ql (U) Negative Negative [facility] Blood hemoglobin measurement (mass/volume)Ordered By: José Miguel Mcnamara on 10-09-2021 Hemoglobin (Bld) [Mass/Vol] 14.4 g/dL 11.8-15.4 [facility] Blood leukocytes automated c ount (number/volume)Ordered By: José Miguel Mcnamara on 10-09-2021 WBC (Bld) [#/Vol] 8.3 10*3/uL 4.5-11.0 [facility] Body fluid albumin measureme nt (mass/volume)Ordered By: José Miguel Mcnamara on 10-09-2021 Albumin (Body fld) [Mass/Vol] 3.4 g/dL 3.2-5.5 [facility] Color Auto (U)Ordered By: RICH GARCIA TEMP on 10-09-2021 Color (U) Yellow Yellow [facility] Creatinine and Glomerular fi ltration rate.predicted panel (S/P/Bld)Ordered By: José Miguel Mcnamara on 10-09-2021 Creatinine [Mass/Vol] 0.94 mg/dL 0.44-1.03 [facility] Direct bilirubin measurement Ordered By: José Miguel Mcnamara on 10-09-2021 Bilirubin.direct [Mass/Vol] 0.3 mg/dL 0.0-0.4 [facility] Eosinophils Auto (Bld) [#/Vo l]Ordered By: José Miguel Mcnamara on 10-09-2021 Eosinophils (Bld) [#/Vol] 0.3 10*3/uL 0.0-0.45 [facility] Eosinophils/100 WBC Auto (Bl d)Ordered By: José Miguel Mcnamara on 10-09-2021 Eosinophils/100 WBC (Bld) 3.1 % . [facility] Erythrocyte distribution wid th Auto (RBC) [Ratio]Ordered By: José Miguel Mcnamara on 10-09-2021 Erythrocyte distribution width (RBC) [Ratio] 13.2 % 11.9-15.3 [facility] Estimated glomerular filtrat ion rate (GFR) non- AmericanOrdered By: José Miguel Mcnamara on 10-09-2021 GFR/1.73 sq M.predicted among non-blacks MDRD (S/P/Bld) [Vol rate/Area] > 60 mL/Min [facility] Globulin Calc (S) [Mass/Vol] Ordered By: José Miguel Mcnamara on 10-09-2021 Globulin (S) [Mass/Vol] 3.3 g/dL [facility] Hematocrit Auto (Bld) [Volum e fraction]Ordered By: José Miguel Mcnamara on 10-09-2021 Hematocrit (Bld) [Volume fraction] 42.6 % 34.0-46.4 [facility] Ketones Auto test strip (U) [Mass/Vol]Ordered By: MOLLY TEMP on 10-09-2021 Ketones (U) [Mass/Vol] Trace Negative Fi [facility] - Chemistry and C hemistry - challengeOrdered By: José Miguel Mcnamara on 10-09-2021 Lipase [Catalytic activity/Vol] 31.0 U/L 22-51 [facility] - CoagulationOrde red By: José Miguel Mcnamara on 10-09-2021 PT Coag (PPP) [Time] 11.1 s 9.0-12.9 [facility] - Hematology and Cell countsOrdered By: José Miguel Mcnamara on 10-09-2021 Nucleated RBC/100 WBC (Bld) [Ratio] 0.1 % 0-0.5 [facility] - UrinalysisOrder ed By: MOLLY KURTZ on 10-09-2021 Hyaline casts LM Ql (Urine sed) 0-8 [LPF] 0-8 [facility] Lymphocytes Auto (Bld) [#/Vo l]Ordered By: José Miguel Mcnamara on 10-09-2021 Lymphocytes (Bld) [#/Vol] 2.6 10*3/uL 1.00-4.8 [facility] Lymphocytes/100 WBC Auto (Bl d)Ordered By: José Miguel Mcnamara on 10-09-2021 Lymphocytes/100 WBC (Bld) 30.9 % . [facility] MCH Auto (RBC) [Entitic mass ]Ordered By: José Miguel Mcnamara on 10-09-2021 MCH (RBC) [Entitic mass] 31.7 pg 24.7-34.3 [facility] MCHC Auto (RBC) [Mass/Vol]Or dered By: José Miguel Mcnamara on 10-09-2021 MCHC (RBC) [Mass/Vol] 33.7 g/dL 32.0-35.0 [facility] MCV Auto (RBC) [Entitic vol] Ordered By: José Miguel Mcnamara on 10-09-2021 MCV (RBC) [Entitic vol] 94.3 fL 80-100 [facility] Monocytes Auto (Bld) [#/Vol] Ordered By: José Miguel Mcnamara on 10-09-2021 Monocytes (Bld) [#/Vol] 0.6 10*3/uL 0.0-0.8 [facility] Monocytes/100 WBC Auto (Bld) Ordered By: José Miguel Mcnamara on 10-09-2021 Monocytes/100 WBC (Bld) 6.6 % . [facility] Neutrophils Auto (Bld) [#/Vo l]Ordered By: José Miguel Mcnamara on 10-09-2021 Neutrophils (Bld) [#/Vol] 4.9 10*3/uL 1.8-7.7 [facility] Neutrophils/100 WBC Auto (Bl d)Ordered By: José Miguel Mcnamara on 10-09-2021 Neutrophils/100 WBC (Bld) 58.7 % . [facility] Nitrite Test strip Ql (U)Ord ered By: PROVIDER TEMTami on 10-09-2021 Nitrite Ql (U) Negative Negative [facility] No Panel InformationOrdered By: José Miguel Mcnamara on 10-09-2021 Estimated GFR () > 60 mL/Min [facility] Comment on above: GFR estimated refere nce range: According to KDOQI guidelines, <60 ml/min/1.73m2 is sufficient to diagnose a patient with chronic kidney disease. Pharmacy Creatinine Clearance (Chem 90.41 [facility] Platelet mean volume Auto (B ld) [Entitic vol]Ordered By: José Miguel Mcnamara on 10-09-2021 Platelet mean volume (Bld) [Entitic vol] 9.2 fL 6.3-10.7 [facility] Platelet poor plasma interna tional normalized ratio (INR) by coagulation assay (relatOrdered By: José Miguel Mcnamara on 10-09-2021 INR Coag (PPP) [Relative time] 1.0 {INR} [facility] Comment on above: INR Therapeutic Rang e [...] 10-09-2021 Platelets (Bld) [#/Vol] 233 10*3/uL 150-450 [facility] Protein Auto test strip (U) [Mass/Vol]Ordered By: PROVIDER TEMP on 10-09-2021 Protein (U) [Mass/Vol] Trace mg/dL Negative [facility] Protein [Mass/volume] in Ser um or PlasmaOrdered By: José Miguel Mcnamara on 10-09-2021 Protein [Mass/Vol] 6.7 g/dL 6.1-7.9 [facility] RBC Auto (Bld) [#/Vol]Ordere d By: José Miguel Mcnamara on 10-09-2021 RBC (Bld) [#/Vol] 4.52 10*6/uL 3.60-5.00 [facility] Serum or plasma alanine cardoso otransferase measurement without P-5'-P (enzymatic activiOrdered By: José Miguel Mcnamara on 10-09-2021 ALT No additional P-5'-P [Catalytic activity/Vol] 101 U/L 10-60 [facility] Serum or plasma albumin/glob ulin mass ratioOrdered By: José Miguel Mcnamara on 10-09-2021 Albumin/Globulin [Mass ratio] 1.0 {ratio} [facility] Serum or plasma alkaline sintia sphatase measurement (enzymatic activity/volume)Ordered By: José Miguel Mcnamara on 10-09-2021 ALP [Catalytic activity/Vol] 79 U/L 32-92 [facility] Serum or plasma aspartate am inotransferase measurement (enzymatic activity/volume)Ordered By: José Miguel Mcnamara on 10-09-2021 AST [Catalytic activity/Vol] 66 U/L 10-42 [facility] Serum or plasma calcium skyla urement (mass/volume)Ordered By: José Miguel Mcnamara on 10-09-2021 Calcium [Mass/Vol] 8.8 mg/dL 8.2-10.2 [facility] Serum or plasma chloride florin surement (moles/volume)Ordered By: José Miguel Mcnamara on 10-09-2021 Chloride [Moles/Vol] 107 mmol/L 95-114 [facility] Serum or plasma glucose skyla urement (mass/volume)Ordered By: José Miguel Mcnamara on 10-09-2021 Glucose [Mass/Vol] 103 mg/dL 70-100 [facility] Comment on above: ADA recommended refe [...] Mcnamara on 10-09-2021 Bilirubin.indirect [Mass/Vol] 0.4 mg/dL [facility] Serum or plasma sodium measu rement (moles/volume)Ordered By: José Miguel Mcnamara on 10-09-2021 Sodium [Moles/Vol] 139 mmol/L 136-146 [facility] Serum or plasma total biliru bin measurement (mass/volume)Ordered By: José Miguel Mcnamara on 10-09-2021 Bilirubin [Mass/Vol] 0.7 mg/dL 0.3-1.2 [facility] Serum or plasma total carbon dioxide measurement (moles/volume)Ordered By: José Miguel Mcnamara on 10-09-2021 CO2 [Moles/Vol] 23.0 mmol/L 22.0-30.0 [facility] Serum or plasma urea nitroge n measurement (mass/volume)Ordered By: José Miguel Mcnamara on 10-09-2021 Urea nitrogen [Mass/Vol] 16 mg/dL 9-23 [facility] Specific gravity Auto test s trip (U) [Rel density]Ordered By: MOLLY KURTZ on 10-09-2021 Specific gravity (U) [Rel density] 1.038 1.001-1.030 [facility] Squamous epithelial cells de tection in urine sediment by light microscopyOrdered By: PROVIDER TESSIE on 10-09-2021 Epithelial cells.squamous LM Ql (Urine sed) 3-4 [HPF] 0-2 [facility] Urine bacteria detection by automated methodOrdered By: PROVIDER TEMP on 10-09-2021 Bacteria Auto Ql (U) 1+ None Seen [facility] Urine clarity by refractomet ry automatedOrdered By: PROVIDER TEMP on 10-09-2021 Clarity Refractometry automated (U) Turbid Clear [facility] Urine glucose measurement by automated test strip (mass/volume)Ordered By: PROVIDER TEMP on 10-09-2021 Glucose Auto test strip (U) [Mass/Vol] Normal mg/dL Normal [facility] Urine hemoglobin detection b y automated test stripOrdered By: PROVIDER TEMP on 10-09-2021 Hemoglobin Auto test strip Ql (U) Negative Negative [facility] Urine leukocyte esterase det ection by automated test stripOrdered By: PROVIDER TEMP on 10-09-2021 Leukocyte esterase Auto test strip Ql (U) Negative Negative [facility] Urobilinogen Auto test strip (U) [Mass/Vol]Ordered By: PROVIDER TEMP on 10-09-2021 Urobilinogen (U) [Mass/Vol] Normal mg/dL Normal [facility] pH Auto test strip (U)Ordere d By: PROVIDER TEMP on 10-09-2021 pH (U) 7.0 [pH] 5.0-9.0 [facility] Basophils Auto (Bld) [#/Vol] Ordered By: Dagoberto Romero on 09-19-2021 Basophils (Bld) [#/Vol] 0.0 10*3/uL 0.0-0.2 [facility] Basophils/100 WBC Auto (Bld) Ordered By: Dagoberto Romero on 09-19-2021 Basophils/100 WBC (Bld) 0.3 % . [facility] Blood hemoglobin measurement (mass/volume)Ordered By: Dagoberto Romero on 09-19-2021 Hemoglobin (Bld) [Mass/Vol] 15.0 g/dL 11.8-15.4 [facility] Blood leukocytes automated c ount (number/volume)Ordered By: Dagoberto Romero on 09-19-2021 WBC (Bld) [#/Vol] 6.9 10*3/uL 4.5-11.0 [facility] Creatinine and Glomerular fi ltration rate.predicted panel (S/P/Bld)Ordered By: Dagoberto Romero on 09-19-2021 Creatinine [Mass/Vol] 0.86 mg/dL 0.44-1.03 [facility] Eosinophils Auto (Bld) [#/Vo l]Ordered By: Dagoberto Romero on 09-19-2021 Eosinophils (Bld) [#/Vol] 0.3 10*3/uL 0.0-0.45 [facility] Eosinophils/100 WBC Auto (Bl d)Ordered By: Dagoberto Romero on 09-19-2021 Eosinophils/100 WBC (Bld) 4.7 % . [facility] Erythrocyte distribution wid th Auto (RBC) [Ratio]Ordered By: Dagoberto Romero on 09-19-2021 Erythrocyte distribution width (RBC) [Ratio] 13.1 % 11.9-15.3 [facility] Estimated glomerular filtrat ion rate (GFR) non- AmericanOrdered By: Dagoberto Romero on 09-19-2021 GFR/1.73 sq M.predicted among non-blacks MDRD (S/P/Bld) [Vol rate/Area] > 60 mL/Min [facility] Hematocrit Auto (Bld) [Volum e fraction]Ordered By: Dagoberto Romero on 09-19-2021 Hematocrit (Bld) [Volume fraction] 44.6 % 34.0-46.4 [facility] - Hematology and Cell countsOrdered By: Dagoberto Romero on 09-19-2021 Nucleated RBC/100 WBC (Bld) [Ratio] 0.1 % 0-0.5 [facility] Lymphocytes Auto (Bld) [#/Vo l]Ordered By: Dagoberto Romero on 09-19-2021 Lymphocytes (Bld) [#/Vol] 2.0 10*3/uL 1.00-4.8 [facility] Lymphocytes/100 WBC Auto (Bl d)Ordered By: Dagoberto Romero on 09-19-2021 Lymphocytes/100 WBC (Bld) 28.5 % . [facility] MCH Auto (RBC) [Entitic mass ]Ordered By: Dagoberto Romero on 09-19-2021 MCH (RBC) [Entitic mass] 31.7 pg 24.7-34.3 [facility] MCHC Auto (RBC) [Mass/Vol]Or dered By: Dagoberto Romero on 09-19-2021 MCHC (RBC) [Mass/Vol] 33.7 g/dL 32.0-35.0 [facility] MCV Auto (RBC) [Entitic vol] Ordered By: Dagoberto Romero on 09-19-2021 MCV (RBC) [Entitic vol] 94.2 fL 80-100 [facility] Monocytes Auto (Bld) [#/Vol] Ordered By: Dagoberto Romero on 09-19-2021 Monocytes (Bld) [#/Vol] 0.7 10*3/uL 0.0-0.8 [facility] Monocytes/100 WBC Auto (Bld) Ordered By: Dagoberto Romero on 09-19-2021 Monocytes/100 WBC (Bld) 9.7 % . [facility] Neutrophils Auto (Bld) [#/Vo l]Ordered By: Dagoberto Romero on 09-19-2021 Neutrophils (Bld) [#/Vol] 3.9 10*3/uL 1.8-7.7 [facility] Neutrophils/100 WBC Auto (Bl d)Ordered By: Dagoberto Romero on 09-19-2021 Neutrophils/100 WBC (Bld) 56.8 % . [facility] No Panel InformationOrdered By: Dagoberto Romero on 09-19-2021 Estimated GFR () > 60 mL/Min [facility] Comment on above: GFR estimated refere nce range: According to KDOQI guidelines, <60 ml/min/1.73m2 is sufficient to diagnose a patient with chronic kidney disease. Pharmacy Creatinine Clearance (Chem N/A [facility] Platelet mean volume Auto (B ld) [Entitic vol]Ordered By: Dagoberto Romero on 09-19-2021 Platelet mean volume (Bld) [Entitic vol] 9.6 fL 6.3-10.7 [facility] Platelets Auto (Bld) [#/Vol] Ordered By: Dagoberto Romero on 09-19-2021 Platelets (Bld) [#/Vol] 254 10*3/uL 150-450 [facility] RBC Auto (Bld) [#/Vol]Ordere d By: Dagoberto Romero on 09-19-2021 RBC (Bld) [#/Vol] 4.74 10*6/uL 3.60-5.00 [facility] Serum or plasma calcium skyla urement (mass/volume)Ordered By: Dagoberto Romero on 09-19-2021 Calcium [Mass/Vol] 8.5 mg/dL 8.2-10.2 [facility] Serum or plasma chloride florin surement (moles/volume)Ordered By: Dagoberto Romero on 09-19-2021 Chloride [Moles/Vol] 105 mmol/L 95-114 [facility] Serum or plasma glucose skyla urement (mass/volume)Ordered By: Dagoberto Romero on 09-19-2021 Glucose [Mass/Vol] 97 mg/dL 70-100 [facility] Comment on above: ADA recommended refe rence range Random Glucose Reference Range is dependent on time and content of last meal. Glucose of more than 200 mg/dL in a nonstressed, ambulatory subject supports the diagnosis of Diabetes Mellitus. Serum or plasma potassium me asurement (moles/volume)Ordered By: Dagoberto Romero on 09-19-2021 Potassium [Moles/Vol] 4.1 mmol/L 3.5-5.1 [facility] Serum or plasma sodium measu rement (moles/volume)Ordered By: Dagoberto Romero on 09-19-2021 Sodium [Moles/Vol] 137 mmol/L 136-146 [facility] Serum or plasma total carbon dioxide measurement (moles/volume)Ordered By: Dagoberto Romero on 09-19-2021 CO2 [Moles/Vol] 23.5 mmol/L 22.0-30.0 [facility] Serum or plasma urea nitroge n measurement (mass/volume)Ordered By: Dagoberto Romero on 09-19-2021 Urea nitrogen [Mass/Vol] 12 mg/dL 9-23 [facility] CBC AUTO DIFFon 09-13-2021 BASO # 0.0 103/ul Normal 0.0-0.1 [facility] Comment on above: Performed By: #### C BC #### [facility] [address] [place], [place] [address] Dr. Nolan Biggs Basophils/100 WBC (Bld) 0.2 % Normal 0.2-2.0 [facility] Comment on above: Performed By: #### C BC #### [facility] [address] [place], [place] [address] Dr. Nolan Biggs EO # 0.2 103/ul Normal 0.0-0.7 [facility] Comment on above: Performed By: #### C BC #### [facility] [address] [place] [address] Dr. Nolan Biggs Eosinophils/100 WBC (Bld) 3.2 % Normal 0.9-7.0 [facility] Comment on above: Performed By: #### C BC #### [facility] [address] [place] [address] Dr. Nolan Biggs Erythrocyte distribution width (RBC) [Ratio] 12.3 % Normal 11.0-15.0 [facility] Comment on above: Performed By: #### C BC #### [facility] [address] [place] [address] Dr. Nolan Biggs Hematocrit (Bld) [Volume fraction] 44.6 % Normal 36.0-48.0 [facility] Comment on above: Performed By: #### C BC #### [facility] [address] [place] [address] Dr. Nolan Biggs Hemoglobin (Bld) [Mass/Vol] 14.8 g/dL Normal 12.0-16.0 [facility] Comment on above: Performed By: #### C BC #### [facility] [address] [place] [address] Dr. Nolan Biggs IG # 0.02 10e3/ul Normal 0.00-0.03 [facility] Comment on above: Performed By: #### C BC #### [facility] [address] [place] [address] Dr. Nolan Biggs IG % 0.3 % Normal 0.0-0.5 [facility] Comment on above: Performed By: #### C BC #### [facility] [address] [place] [address] Dr. Nolan Biggs LYMPH # 2.4 103/ul Normal 1.2-3.8 [facility] Comment on above: Performed By: #### C BC #### [facility] [address] [place] [address] Dr. Nolan Biggs Lymphocytes/100 WBC (Bld) 40.0 % Normal 20.5-60.0 [facility] Comment on above: Performed By: #### C BC #### [facility] [address] [place] [address] Dr. Nolan Biggs MANUAL DIFF REQ NO Normal [facility] Comment on above: Performed By: #### C BC #### [facility] [address] [place] [address] Dr. Nolan Biggs MCH (RBC) [Entitic mass] 30.9 pg Normal 26.7-34.0 [facility] Comment on above: Performed By: #### C BC #### [facility] [address] [place] [address] Dr. Nolan Biggs MCHC (RBC) [Mass/Vol] 33.2 g/dL Normal 29.9-35.2 [facility] Comment on above: Performed By: #### C BC #### [facility] [address] [place] [address] Dr. Nolan Biggs MCV (RBC) [Entitic vol] 93.1 fL Normal 81.0-99.0 [facility] Comment on above: Performed By: #### C BC #### [facility] [address] [place] [address] Dr. Nolan Biggs MONO # 0.5 103/ul Normal 0.3-0.8 [facility] Comment on above: Performed By: #### C BC #### [facility] [address] [place] [address] Dr. Nolan Biggs Monocytes/100 WBC (Bld) 8.4 % Normal 1.7-12.0 [facility] Comment on above: Performed By: #### C BC #### [facility] [address] [place] [address] Dr. Nolan Biggs NEUT # 2.9 103/ul Normal 1.4-6.5 [facility] Comment on above: Performed By: #### C BC #### [facility] [address] [place] [address] Dr. Nolan Biggs Neutrophils/100 WBC (Bld) 47.9 % Normal 43.0-75.0 [facility] Comment on above: Performed By: #### C BC #### [facility] [address] [address] [address] Nolan Biggs Platelet mean volume (Bld) [Entitic vol] 10.7 fL Normal 9.5-13.5 [facility] Comment on above: Performed By: #### C BC #### [facility] [address] [address] [address] Nolan Biggs PLT 298 103/ul Normal 150-450 [facility] Comment on above: Performed By: #### C BC #### [facility] [address] [address] [address] Nolan Biggs RBC 4.79 106/ul Normal 4.20-5.40 [facility] Comment on above: Performed By: #### C BC #### [facility] [address] [place] [address] Dr. Nolan Biggs WBC 6.0 103/ul Normal 4.0-11.0 [facility] Comment on above: Performed By: #### C BC #### [facility] [address] [place] [address] ABD/PELVIS WO CONon [...] LEILANI SOLOMON Date: 2021-09-13 21:13 Normal [facility]on 08-24 SARS-CoV-2 (COVID-19) RNA LINDSEY+probe Ql (Unsp spec) Not detected Normal NOT DETECTED [facility] Comment on above: Result Comment: When diagnostic [...] for this test is supported by the Sales Operations Analyst of Health and Human Service's declaration that [...] used). Performed By: #### C BC #### [facility] [address] [place] [address] Dr. Nolan Biggs ER URINE PROFILEon 2 Bilirubin Ql (U) SMALL Abnormal NEGATIVE [facility] Comment on above: Performed By: #### E RUR #### [facility] [address] [address] [address] Nolan Biggs Clarity (U) CLEAR Normal CLEAR [facility] Comment on above: Performed By: #### E RUR #### [facility] [address] [place] [address] Dr. Nolan Biggs Color (U) DK. YELLOW Normal YELLOW [facility] Comment on above: Performed By: #### E RUR #### [facility] [address] [address] [address] Nolan URBINA A micrscopic examination will be performed if indicated. Normal [facility] Comment on above: Performed By: #### E RUR #### [facility] [address] [address] [address] Nolan Biggs Glucose Ql (U) Negative Normal NEGATIVE [facility] Comment on above: Performed By: #### E RUR #### [facility] [address] [place] [address] Dr. Nolan Biggs Hemoglobin Ql (U) Negative Normal NEGATIVE [facility] Comment on above: Performed By: #### E RUR #### [facility] [address] [place] [address] Dr. Nolan Biggs Ketones Ql (U) Negative Normal NEGATIVE [facility] Comment on above: Performed By: #### E RUR #### [facility] [address] [place] [address] Dr. Nolan Biggs LEUKOCYTES Negative Normal NEGATIVE [facility] Comment on above: Performed By: #### E RUR #### [facility] [address] [place] [address] Dr. Nolan Biggs Nitrite Ql (U) Negative Normal NEGATIVE [facility] Comment on above: Performed By: #### E RUR #### [facility] [address] [place] [address] Dr. Nolan Biggs pH (U) 5.5 [pH] Normal 5-9 [facility] Comment on above: Performed By: #### E RUR #### [facility] [address] [place] [address] Dr. Nolan Biggs SPEC GRAVITY >=1.030 Abnormal 1.005-<=1.02 5 [facility] Comment on above: Performed By: #### E RUR #### [facility] [address] [place] [address] Dr. Nolan Biggs UA PROTEIN Negative Normal NEGATIVE/ TRACE [facility] Comment on above: Performed By: #### E RUR #### [facility] [address] [place] [address] Dr. Nolan Biggs UR MICRO IND NOT INDICATED Normal [facility] Comment on above: Performed By: #### E RUR #### [facility] [address] [place] [address] Dr. Nolan Biggs Urobilinogen Qn (U) 1.0 {Jan'U}/dL Normal 0.2 - 1. 0 [facility] Comment on above: Performed By: #### E RUR #### [facility] [address] [place] [address] Dr. Nolan Biggs INFLUENZA A AND B AGon 09-13 INFLUENZA A AG Negative Normal NEGATIVE SEE COMMENT [facility] Comment on above: Performed By: #### C BC #### [facility] [address] [place] [address] Dr. Nolan Biggs INFLUENZA B AG Negative Normal NEGATIVE SEE COMMENT [facility] Comment on above: Performed By: #### C BC #### [facility] [address] [place] [address] Dr. Nolan Biggs INTERNAL CONTROLS Within Normal Limits Normal Wi thin Normal Limits [facility] Comment on above: Performed By: #### C BC #### [facility] [address] [place] [address] Dr. Nolan Biggs LACTATE/LACTIC ACIDon 2021 Lactate [Moles/Vol] 0.4 mmol/L Normal 0.4-1.9 [facility] Comment on above: Performed By: #### C BC #### [facility] [address] [place] [address] Dr. Nolan Biggs LIPASEon 09-13-2021 Lipase [Catalytic activity/Vol] 63.0 U/L Critically low 73.0-393.0 [facility] Comment on above: Performed By: #### C MP, HSTROPN, LIPA #### [facility] [address] [place] [address] Dr. Nolan Biggs PROF 14(COMP METB)on Albumin [Mass/Vol] 3.5 g/dL Normal 3.4-5.0 [facility] Comment on above: Performed By: #### C MP, HSTROPN, LIPA #### [facility] [address] [address] [address] Nolan Biggs Albumin/Globulin [Mass ratio] 0.8 {ratio} Normal [facility] Comment on above: Performed By: #### C MP, HSTROPN, LIPA #### [facility] [address] [address] [address] Nolan Biggs ALP [Catalytic activity/Vol] 83 U/L Normal 46-116 [facility] Comment on above: Performed By: #### C MP, HSTROPN, LIPA #### [facility] [address] [place] [address] Dr. Nolan Biggs ALT [Catalytic activity/Vol] 143 U/L Critically high 14-59 [facility] Comment on above: Performed By: #### C MP, HSTROPN, LIPA #### [facility] [address] [place] [address] Dr. Nolan Biggs Anion gap [Moles/Vol] 10.9 mmol/L Normal [facility] Comment on above: Performed By: #### C MP, HSTROPN, LIPA #### [facility] [address] [place] [address] Dr. Nolan Biggs AST [Catalytic activity/Vol] 82 U/L Critically high 15-37 [facility] Comment on above: Performed By: #### C MP, HSTROPN, LIPA #### [facility] [address] [place] [address] Dr. Nolan Biggs Bilirubin [Mass/Vol] 0.6 mg/dL Normal 0.2-1.0 [facility] Comment on above: Performed By: #### C MP, HSTROPN, LIPA #### [facility] [address] [place] [address] Dr. Nolan Biggs Calcium [Mass/Vol] 8.4 mg/dL Critically low 8.5-10.1 [facility] Comment on above: Performed By: #### C MP, HSTROPN, LIPA #### [facility] [address] [address] [address] oNlan Biggs Chloride [Moles/Vol] 106 mmol/L Normal 98-107 [facility] Comment on above: Performed By: #### C MP, HSTROPN, LIPA #### [facility] [address] [address] [address] Nolan Biggs CO2 [Moles/Vol] 26.2 mmol/L Normal 21.0-32.0 [facility] Comment on above: Performed By: #### C MP, HSTROPN, LIPA #### [facility] [address] [address] [address] Nolan Biggs Creatinine [Mass/Vol] 0.82 mg/dL Normal 0.55-1.02 [facility] Comment on above: Performed By: #### C MP, HSTROPN, LIPA #### [facility] [address] [address] [address] Nolan Biggs EGFR-AF [place] CITIZ[place] >60 Normal >=60 [facility] Comment on above: Performed By: #### C MP, HSTROPN, LIPA #### [facility] [address] [address] [address] Nolan Biggs EGFR-NON AF [place] CITIZEN >60 Normal >=60 [facility] Comment on above: Performed By: #### C MP, HSTROPN, LIPA #### [facility] [address] [address] [address] Nolan Biggs Globulin (S) [Mass/Vol] 4.2 g/dL Normal [facility] Comment on above: Performed By: #### C MP, HSTROPN, LIPA #### [facility] [address] [address] [address] Nolan Biggs Glucose [Mass/Vol] 112 mg/dL Critically high 74-106 [facility] Comment on above: Performed By: #### C MP, HSTROPN, LIPA #### [facility] [address] [address] [address] Nolan Biggs Potassium [Moles/Vol] 4.1 mmol/L Normal 3.5-5.1 [facility] Comment on above: Performed By: #### C AMI PARKINSONTRNAMITA LIPA #### [facility] [address] [place] [address] Dr. Nolan Biggs Protein [Mass/Vol] 7.7 g/dL Normal 6.4-8.2 [facility] Comment on above: Performed By: #### C AMI PARKINSONTRNAMITA, LIPA #### [facility] [address] [place] [address] Dr. Nolan Biggs Sodium [Moles/Vol] 139 mmol/L Normal 136-145 [facility] Comment on above: Performed By: #### C AMI PARKINSONTROPRadha, LIPA #### [facility] [address] [place] [address] Dr. Nolan Biggs Urea nitrogen [Mass/Vol] 11.0 mg/dL Normal 7.0-18.0 [facility] Comment on above: Performed By: #### C IGGY HSTRNAMITA, LIPA #### [facility] [address] [place] [address] Dr. Nolan Biggs Urea nitrogen/Creatinine [Mass ratio] 13.4 mg/mg Normal [facility] Comment on above: Performed By: #### C AMI PARKINSONTRNAMITA, LIPA #### [facility] [address] [place] [address] Dr. Nolan Biggs PROTIMEon 09-13-2021 INR Coag (PPP) [Relative time] 1.00 {INR} Normal [facility] Comment on above: Performed By: #### C BC #### [facility] [address] [place] [address] Dr. Nolan Biggs INR GUIDELINES SEE BELOW Normal [facility] Comment on above: Result Comment: PATRICIA RED INR: 2.0 - 3.0 CONDITIONS NOT LISTED BELOW 2.5 - 3.5 FOR PROSTHETIC HEART VALVE REPLACEMENT 2.5 - 3.5 RECURRENT THROMBOSIS Performed By: #### C BC #### [facility] [address] [place] [address] Dr. Nolan Biggs PT Coag (PPP) [Time] 10.8 s Normal 9.0-11.6 [facility] Comment on above: Performed By: #### C BC #### [facility] [address] [place], [place] [address] Dr. Nolan Bgigs PTTon 09-13-2021 aPTT Coag (Bld) [Time] 27.3 s Normal 22.3-36.2 [facility] Comment on above: Performed By: #### C BC #### [facility] [address] [place], [place] [address] Dr. Nolan Biggs TROPONIN, HIGH SENSITIVITYon 09-13-2021 HSTROP <4.0 Normal 4.0-51.3 [facility] Comment on above: Result Comment: CUT- OFF POINTS HAVE BEEN ESTABLISHED BASED ON THE FOURTH UNIVERSAL DEFINITIONS OF MYOCARDIAL INFARCTION. THE UPPER REFERENCE LIMIT (URL) OF TROPONIN, DEFINED THE 99TH PERCENTILE OF cTnI DISTRIBUTION IN A REFERENCE POPULATION, HAS BEEN CONFIRMED THE DECISION THRESHOLD FOR NM DIAGNOSIS. Performed By: #### C BC #### [facility] [address] [place], [place] [id number] Dr. Nolan Biggs Vital Signs Date Time Vital Sign Value Performing Clinician Facility 10-31-2023 00:00-0400 Diastolic blood pressure 70 mm[Hg] Aaliyah Fischer I, DO Work Phone: [facility] 10-31-2023 00:00-0400 Heart rate 69 /min Aaliyah Fischer I, DO Work Phone: [facility] 10-31-2023 00:00-0400 Respiratory rate 19 /min Aaliyah Fischer I, DO Work Phone: [facility] 10-31-2023 00:00-0400 SaO2% (BldA) [Mass fraction] 96 % Aaliyah Fischer I, DO Work Phone: [facility] 10-31-2023 00:00-0400 Systolic blood pressure 127 mm[Hg] Aaliyah Fischer I, DO Work Phone: [facility] 10-30-2023 20:06-0400 Body temperature 97.7 [degF] Aaliyah Fischer I, DO Work Phone: [facility] [employer] 10-30-2023 18:01-0400 Body height 160 cm Aaliyah Fischer I, DO [facility] Phone[facility] 10-30-2023 18:01-0400 Body mass index (BMI) [Ratio] 44.29 kg/m2 Aaliyah Fischer I, DO Work Phone[facility] 10-30-2023 18:01-0400 Body weight 113.4 kg Aaliyah Fischer I DO Work Phone: [facility] 10-30-2023 12:14-0400 Body temperature 98.24 [degF] [facility] 10-30-2023 12:14-0400 Diastolic blood pressure 96 mm[Hg] [facility] 10-30-2023 12:14-0400 Heart rate 91 /min [facility] 10-30-2023 12:14-0400 Respiratory rate 20 /min [facility] 10-30-2023 12:14-0400 SaO2% (BldA) [Mass fraction] 98 % [facility] 10-30-2023 12:14-0400 Systolic blood pressure 146 mm[Hg] [facility] 10-26-2023 02:43-0400 Body temperature 97.7 [degF] Pedro Pablo [facility] 10-26-2023 02:43-0400 Diastolic blood pressure 92 mm[Hg] Pedro Pablo [facility] 10-26-2023 02:43-0400 Heart rate 82 /min Pedro Pablo [facility] 10-26-2023 02:43-0400 Respiratory rate 16 /min Pedro Pablo [facility] 10-26-2023 02:43-0400 SaO2% (BldA) [Mass fraction] 94 % Pedro Pablo [facility] 10-26-2023 02:43-0400 Systolic blood pressure 143 mm[Hg] Pedro [facility] 10-19-2023 13:04-0400 Body temperature 98.1 [degF] [facility] Work Phone: [facility] 10-19-2023 13:04-0400 Diastolic blood pressure 79 mm[Hg] [facility] Work Phone: [facility] 10-19-2023 13:04-0400 Heart rate 87 /min [facility] Work Phone: [facility] 10-19-2023 13:04-0400 Respiratory rate 18 /min [facility] Work Phone: [facility] 10-19-2023 13:04-0400 SaO2% (BldA) [Mass fraction] 99 % [facility] Work Phone: [facility] 10-19-2023 13:04-0400 Systolic blood pressure 136 mm[Hg] [facility] Work Phone: [facility] 10-19-2023 11:26-0400 Body height 160.02 cm [facility] Work Phone: [facility] 10-19-2023 11:26-0400 Body weight 113.39 kg [facility] Work Phone: [facility] 10-05-2023 19:56-0400 Diastolic blood pressure 62 mm[Hg] [facility] Work Phone: [facility] 10-05-2023 19:56-0400 Heart rate 87 /min [facility] Work Phone: [facility] 10-05-2023 19:56-0400 Respiratory rate 18 /min [facility] [employer] Work Phone: [facility] 10-05-2023 19:56-0400 SaO2% (BldA) [Mass fraction] 98 % [facility] [employer] Work Phone: [facility] 10-05-2023 19:56-0400 Systolic blood pressure 134 mm[Hg] [facility] [employer] Work Phone: [facility] 10-05-2023 14:36-0400 Body height 163.83 cm [facility] [employer] Work Phone: [facility] 10-05-2023 14:36-0400 Body temperature 98 [degF] [facility] [employer] Work Phone: [facility] 10-05-2023 14:36-0400 Body weight 115 kg Services [facility] [employer] Work Phone: [facility] 10-04-2023 14:48-0400 Body temperature 98.06 [degF] Jorge Rodrigueze [facility] 10-04-2023 14:48-0400 Diastolic blood pressure 75 mm[Hg] Jorge Rodrigueze [facility] 10-04-2023 14:48-0400 Heart rate 72 /min Jorge Rodrigueze [facility] 10-04-2023 14:48-0400 Respiratory rate 16 /min Jorge Rodrigueze [facility] 10-04-2023 14:48-0400 SaO2% (BldA) [Mass fraction] 97 % Jorge Rodrigueze [facility] 10-04-2023 14:48-0400 Systolic blood pressure 153 mm[Hg] Jorge Rodrigueze [facility] 09-25-2023 11:41-0400 Body temperature 98.24 [degF] Balbina Bryant [facility] 09-25-2023 11:41-0400 Diastolic blood pressure 105 mm[Hg] [facility] 09-25-2023 11:41-0400 Heart rate 105 /min [facility] 09-25-2023 11:41-0400 Respiratory rate 18 /min [facility] 09-25-2023 11:41-0400 SaO2% (BldA) [Mass fraction] 95 % [facility] 09-25-2023 11:41-0400 Systolic blood pressure 173 mm[Hg] [facility] 09-21-2023 11:15-0400 Body temperature 98.24 [degF] Nikhil Arley [facility] 09-21-2023 11:15-0400 Diastolic blood pressure 65 mm[Hg] Nikhil Tubbs [facility] 09-21-2023 11:15-0400 Heart rate 100 /min Nikhil Arley [facility] 09-21-2023 11:15-0400 Respiratory rate 18 /min Nikhil Arley [facility] 09-21-2023 11:15-0400 SaO2% (BldA) [Mass fraction] 98 % Nikhil Tubbs [facility] 09-21-2023 11:15-0400 Systolic blood pressure 121 mm[Hg] Nikhil Arley [facility] 09-20-2023 10:55-0400 Body temperature 97.52 [degF] Jorge Mcintosh [facility] 09-20-2023 10:55-0400 Diastolic blood pressure 85 mm[Hg] Jorge Mcintosh [facility] 09-20-2023 10:55-0400 Heart rate 102 /min Jorge Mcintosh [facility] 09-20-2023 10:55-0400 Respiratory rate 97 /min Jorge Mcintosh [facility] 09-20-2023 10:55-0400 SaO2% (BldA) [Mass fraction] 99 % Jorge Mcintosh [facility] 09-20-2023 10:55-0400 Systolic blood pressure 166 mm[Hg] Jorge Mcintosh [facility] 09-17-2023 17:45-0400 Blood Pressure Location Dax Lira [facility] 09-17-2023 17:45-0400 Body temperature 98.6 [degF] Dax Moralesey [facility] 09-17-2023 17:45-0400 Diastolic blood pressure 88 mm[Hg] Dax Pankaj [facility] 09-17-2023 17:45-0400 Heart rate 92 /min Dax Lira [facility] 09-17-2023 17:45-0400 Respiratory rate 16 /min Dax Lira [facility] 09-17-2023 17:45-0400 SaO2% (BldA) [Mass fraction] 98 % Dax Lira [facility] 09-17-2023 17:45-0400 Systolic blood pressure 130 mm[Hg] Dax Pankaj [facility] 09-10-2023 14:06-0400 Diastolic blood pressure 61 mm[Hg] Benja Tad DO Work Phone: [facility] 09-10-2023 14:06-0400 Systolic blood pressure 140 mm[Hg] Benja Tad DO Work Phone: [employer] 09-10-2023 14:02-0400 Body height 160 cm Benja Lid DO Work Phone: [employer] 09-10-2023 14:02-0400 Body mass index (BMI) [Ratio] 38.09 kg/m2 Benja Clarkeoud DO Work Phone: [facility] [employer] 09-10-2023 14:02-0400 Body temperature 98.29 [degF] Benja Lid DO Work Phone: [facility] [employer] 09-10-2023 14:02-0400 Body weight 97.52 kg Benja Lid DO Work Phone: [facility] [employer] 09-10-2023 14:02-0400 Heart rate 83 /min Benja Lid DO Work Phone: [facility] [employer] 09-10-2023 14:02-0400 Respiratory rate 17 /min Benja Lid DO Work Phone: [facility] [employer] 09-10-2023 14:02-0400 SaO2% (BldA) [Mass fraction] 97 % Benja Lid DO Work Phone: [facility] [employer] 09-09-2023 22:30-0400 Blood Pressure Location Jorge Mcintosh [facility] 09-09-2023 22:30-0400 Diastolic blood pressure 67 mm[Hg] Jorge Mcintosh [facility] 09-09-2023 22:30-0400 Heart rate 71 /min Jorge Mcintosh [facility] 09-09-2023 22:30-0400 Mean blood pressure 87 mm[Hg] Jorge Mcintosh [facility] 09-09-2023 22:30-0400 Respiratory rate 16 /min Jorge Arnaldo [facility] 09-09-2023 22:30-0400 SaO2% (BldA) [Mass fraction] 99 % Jorge Rodrigueze [facility] 09-09-2023 22:30-0400 Systolic blood pressure 126 mm[Hg] Jorge Rodrigueze [facility] 09-09-2023 21:30-0400 Blood Pressure Location Jorge Rodrigueze [facility] 09-09-2023 21:30-0400 Diastolic blood pressure 76 mm[Hg] Jorge Rodrigueze [facility] 09-09-2023 21:30-0400 Heart rate 80 /min Jorge Rodrigueze [facility] 09-09-2023 21:30-0400 Mean blood pressure 96 mm[Hg] Jorge Rodrigueze [facility] 09-09-2023 21:30-0400 Respiratory rate 16 /min Jorge Arnaldo [facility] 09-09-2023 21:30-0400 SaO2% (BldA) [Mass fraction] 98 % Jorge Rodrigueze [facility] 09-09-2023 21:30-0400 Systolic blood pressure 136 mm[Hg] Jorge Arnaldo [facility] 09-09-2023 21:00-0400 Diastolic blood pressure 62 mm[Hg] Jorge Arnaldo [facility] 09-09-2023 21:00-0400 Heart rate 79 /min Jorge Arnaldo [facility] 09-09-2023 21:00-0400 SaO2% (BldA) [Mass fraction] 94 % Jorge Arnaldo [facility] 09-09-2023 19:12-0400 Heart rate 96 /min Jorge Mcintohs [facility] 09-08-2023 18:37-0400 Body height 162.56 cm [facility] Work Phone: [facility] 09-08-2023 18:37-0400 Body temperature 98.3 [degF] [facility] Work Phone: [facility] 09-08-2023 18:37-0400 Body weight 116.3 kg Services [email or web address] [facility] Work Phone: [facility] 09-08-2023 18:37-0400 Diastolic blood pressure 89 mm[Hg] Services [email or web address] [facility] Work Phone: [facility] 09-08-2023 18:37-0400 Heart rate 97 /min [facility] [employer] Work Phone: [facility] 09-08-2023 18:37-0400 Respiratory rate 19 /min [facility] [employer] Work Phone: [facility] 09-08-2023 18:37-0400 SaO2% (BldA) [Mass fraction] 99 % [facility] [employer] Work Phone: [facility] 09-08-2023 18:37-0400 Systolic blood pressure 162 mm[Hg] Services [facility] [employer] Work Phone: [facility] 09-06-2023 21:10-0400 Body temperature 97.88 [degF] Pedro Pablo [facility] 09-06-2023 21:10-0400 Diastolic blood pressure 82 mm[Hg] Pedro Pablo [facility] 09-06-2023 21:10-0400 Heart rate 79 /min Pedro Pablo [facility] 09-06-2023 21:10-0400 Respiratory rate 17 /min Pedro Pablo [facility] 09-06-2023 21:10-0400 SaO2% (BldA) [Mass fraction] 98 % Pedro [facility] 09-06-2023 21:10-0400 Systolic blood pressure 152 mm[Hg] Pedro Pablo [facility] 09-02-2023 18:07-0400 Body temperature 97.88 [degF] Jorge Mcintosh [facility] 09-02-2023 18:07-0400 Diastolic blood pressure 79 mm[Hg] Jorge Mcintosh [facility] 09-02-2023 18:07-0400 Heart rate 94 /min Jorge Mcintosh [facility] 09-02-2023 18:07-0400 Respiratory rate 16 /min Jorge Mcintosh [facility] 09-02-2023 18:07-0400 SaO2% (BldA) [Mass fraction] 96 % Jorge Mcintosh [facility] 09-02-2023 18:07-0400 Systolic blood pressure 136 mm[Hg] Jorge Mcintosh [facility] 08-30-2023 19:17-0400 Diastolic blood pressure 92 mm[Hg] Nikhil Arley [facility] 08-30-2023 19:17-0400 Heart rate 94 /min Nikhil Arley [facility] 08-30-2023 19:17-0400 Mean blood pressure 112 mm[Hg] Nikhil Arley [facility] 08-30-2023 19:17-0400 Respiratory rate 17 /min Nikhil Arley [facility] 08-30-2023 19:17-0400 SaO2% (BldA) [Mass fraction] 97 % Nikhil Arley [facility] 08-30-2023 19:17-0400 Systolic blood pressure 151 mm[Hg] Nikhil Tubbs [facility] 08-30-2023 18:13-0400 Body temperature 98.24 [degF] Nikhil Tubbs [facility] 08-30-2023 18:13-0400 Diastolic blood pressure 100 mm[Hg] Nikhil Tubbs [facility] 08-30-2023 18:13-0400 Heart rate 92 /min Nikhil Tubbs [facility] 08-30-2023 18:13-0400 Respiratory rate 18 /min Nikhil Tubbs [facility] 08-30-2023 18:13-0400 SaO2% (BldA) [Mass fraction] 100 % Nikhil Tubbs [facility] 08-30-2023 18:13-0400 Systolic blood pressure 165 mm[Hg] Nikhil Tubbs [facility] 08-27-2023 13:20-0400 Body height 160 cm Chirag Oviedo 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[facility] 08-27-2023 13:20-0400 Body mass index (BMI) [Ratio] 44.29 kg/m2 Chirag Oviedo 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[facility] 08-27-2023 13:20-0400 Body weight 113.4 kg Chirag Oviedo 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[facility] 08-27-2023 13:20-0400 Diastolic blood pressure 88 mm[Hg] Chirag Oviedo 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[facility] 08-27-2023 13:20-0400 Heart rate 88 /min Chirag Oviedo 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[facility] 08-27-2023 13:20-0400 Respiratory rate 18 /min Chirag Oviedo 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[facility] 08-27-2023 13:20-0400 Systolic blood pressure 132 mm[Hg] Chirag Oviedo 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[facility] 08-21-2023 10:06-0400 Body temperature 98.8 [degF] Elke Adams MD Work Phone: [facility] 08-21-2023 10:06-0400 Diastolic blood pressure 62 mm[Hg] Elke Adams MD Work Phone: [facility] 08-21-2023 10:06-0400 Respiratory rate 16 /min Elke Adams MD Work Phone: [facility] 08-21-2023 10:06-0400 SaO2% (BldA) [Mass fraction] 93 % Elke Adams MD Work Phone: [facility] 08-21-2023 10:06-0400 Systolic blood pressure 116 mm[Hg] Elke Adams MD Work Phone: [facility] 08-21-2023 06:30-0400 Body height 160 cm Elke Adams MD Work Phone: [facility] 08-21-2023 06:30-0400 Body mass index (BMI) [Ratio] 44.32 kg/m2 Elke Adams MD Work Phone: [facility] 08-21-2023 06:30-0400 Body weight 113.5 kg Elke Adams MD Work Phone: [facility] 08-21-2023 06:30-0400 Heart rate 87 /min Elke Adams MD Work Phone: [facility] 08-16-2023 00:55-0400 Diastolic blood pressure 90 mm[Hg] [facility] 08-16-2023 00:55-0400 Heart rate 64 /min [facility] 08-16-2023 00:55-0400 Mean blood pressure 111 mm[Hg] [facility] 08-16-2023 00:55-0400 Respiratory rate 15 /min [facility] 08-16-2023 00:55-0400 SaO2% (BldA) [Mass fraction] 93 % [facility] 08-16-2023 00:55-0400 Systolic blood pressure 153 mm[Hg] [facility] 08-16-2023 00:07-0400 Diastolic blood pressure 88 mm[Hg] [facility] 08-16-2023 00:07-0400 Heart rate 73 /min [facility] 08-16-2023 00:07-0400 Mean blood pressure 105 mm[Hg] [facility] 08-16-2023 00:07-0400 Respiratory rate 17 /min [facility] 08-16-2023 00:07-0400 SaO2% (BldA) [Mass fraction] 93 % [facility] 08-16-2023 00:07-0400 Systolic blood pressure 138 mm[Hg] [facility] 08-15-2023 23:42-0400 Diastolic blood pressure 80 mm[Hg] [facility] 08-15-2023 23:42-0400 Heart rate 79 /min [facility] 08-15-2023 23:42-0400 Mean blood pressure 96 mm[Hg] [facility] 08-15-2023 23:42-0400 Respiratory rate 15 /min [facility] 08-15-2023 23:42-0400 SaO2% (BldA) [Mass fraction] 94 % [facility] 08-15-2023 23:42-0400 Systolic blood pressure 129 mm[Hg] [facility] 08-15-2023 22:22-0400 Body temperature 98.06 [degF] [facility] 08-15-2023 22:22-0400 Heart rate 88 /min [facility] 08-14-2023 15:16-0400 Diastolic blood pressure 58 mm[Hg] Domenic Sher [facility] 08-14-2023 15:16-0400 Heart rate 86 /min Domenic Sher [facility] 08-14-2023 15:16-0400 Mean blood pressure 88 mm[Hg] Domenic Sher [facility] 08-14-2023 15:16-0400 Respiratory rate 16 /min Domenic Sher [facility] 08-14-2023 15:16-0400 Systolic blood pressure 148 mm[Hg] Domenic Sher [facility] 08-12-2023 20:51-0400 Body temperature 98.24 [degF] Kaylinn Dokken [facility] 08-12-2023 20:51-0400 Diastolic blood pressure 83 mm[Hg] Kaylinn Dokken [facility] 08-12-2023 20:51-0400 Heart rate 83 /min Kaylinn Dokken [facility] 08-12-2023 20:51-0400 Respiratory rate 18 /min Kaylinn Dokken [facility] 08-12-2023 20:51-0400 SaO2% (BldA) [Mass fraction] 95 % Elisa Sánchez [facility] 08-12-2023 20:51-0400 Systolic blood pressure 146 mm[Hg] Elisa Sánchez [facility] 08-09-2023 23:20-0400 Body temperature 97.7 [degF] Keke Payne MD Work Phone: [facility] 08-09-2023 23:20-0400 Diastolic blood pressure 78 mm[Hg] Keke Payne MD Work Phone: [facility] 08-09-2023 23:20-0400 Heart rate 79 /min Keke Payne MD Work Phone: [facility] 08-09-2023 23:20-0400 Respiratory rate 18 /min Keke Payne MD Work Phone: [facility] 08-09-2023 23:20-0400 SaO2% (BldA) [Mass fraction] 95 % Keke Payne MD Work Phone: [facility] 08-09-2023 23:20-0400 Systolic blood pressure 151 mm[Hg] Keke Payne MD Work Phone: [facility] 08-09-2023 21:46-0400 Body mass index (BMI) [Ratio] 44.29 kg/m2 Keke Payne MD Work Phone: [facility] 08-09-2023 21:46-0400 Body weight 113.4 kg Keke Payne MD Work Phone: [facility] 08-05-2023 20:15-0400 Body temperature 97.88 [degF] Pedro Pablo Chance [facility] 08-05-2023 20:15-0400 Diastolic blood pressure 85 mm[Hg] Pedro Pablo Chance [facility] 08-05-2023 20:15-0400 Heart rate 98 /min Pedro Pablo Chance [facility] 08-05-2023 20:15-0400 Respiratory rate 16 /min Pedro Pablo Fletcher [facility] 08-05-2023 20:15-0400 SaO2% (BldA) [Mass fraction] 94 % Pedro Pablo Chance [facility] 08-05-2023 20:15-0400 Systolic blood pressure 150 mm[Hg] Pedro Pablo Fletcher [facility] 08-02-2023 11:52-0400 Body temperature 97.88 [degF] Nikhil Tubbs [facility] 08-02-2023 11:52-0400 Diastolic blood pressure 68 mm[Hg] Nikhil Arley [facility] 08-02-2023 11:52-0400 Heart rate 86 /min Nikhil Tubbs [facility] 08-02-2023 11:52-0400 Respiratory rate 20 /min Nikhil Tubbs [facility] 08-02-2023 11:52-0400 SaO2% (BldA) [Mass fraction] 93 % Nikhil Tubbs [facility] 08-02-2023 11:52-0400 Systolic blood pressure 161 mm[Hg] Nikhil Arley [facility] 07-31-2023 15:29-0400 Diastolic blood pressure 86 mm[Hg] [facility] 07-31-2023 15:29-0400 Heart rate 75 /min [facility] 07-31-2023 15:29-0400 Mean blood pressure 103 mm[Hg] [facility] 07-31-2023 15:29-0400 Respiratory rate 16 /min [facility] 07-31-2023 15:29-0400 SaO2% (BldA) [Mass fraction] 98 % [facility] 07-31-2023 15:29-0400 Systolic blood pressure 138 mm[Hg] [facility] 07-31-2023 14:22-0400 Body temperature 98.06 [degF] [facility] 07-31-2023 14:22-0400 Diastolic blood pressure 87 mm[Hg] [facility] 07-31-2023 14:22-0400 Heart rate 88 /min [facility] 07-31-2023 14:22-0400 Mean blood pressure 101 mm[Hg] [facility] 07-31-2023 14:22-0400 Respiratory rate 18 /min [facility] 07-31-2023 14:22-0400 SaO2% (BldA) [Mass fraction] 96 % [facility] 07-31-2023 14:22-0400 Systolic blood pressure 130 mm[Hg] [facility] 07-26-2023 11:06-0400 Body temperature 98.24 [degF] Jorge Mcintosh [facility] 07-26-2023 11:06-0400 Diastolic blood pressure 66 mm[Hg] Jorge Mcintosh [facility] 07-26-2023 11:06-0400 Heart rate 83 /min Jorge Mcintosh [facility] 07-26-2023 11:06-0400 Respiratory rate 19 /min Jorge Mcintosh [facility] 07-26-2023 11:06-0400 SaO2% (BldA) [Mass fraction] 97 % Jorge Mcintosh [facility] 05-03-2024 11:06-0400 Systolic blood pressure 119 mm[Hg] Jorge Mcintosh [facility] 07-17-2023 09:43-0400 Diastolic blood pressure 90 mm[Hg] Cheyanne Rosas [facility] 07-17-2023 09:43-0400 Mean blood pressure 107 mm[Hg] Cheyanne Rosas [facility] 07-17-2023 09:43-0400 Systolic blood pressure 140 mm[Hg] Cheyanne Rosas [facility] 07-17-2023 07:48-0400 Blood Pressure Location Cheyanne Rosas [facility] 07-17-2023 07:48-0400 Body temperature 97.7 [degF] Cheyanne Rosas [facility] 07-17-2023 07:48-0400 Diastolic blood pressure 78 mm[Hg] Cheyanne Rosas [facility] 07-17-2023 07:48-0400 Heart rate 91 /min Cheyanne Rosas [facility] 07-17-2023 07:48-0400 Respiratory rate 18 /min Cheyanne Rosas [facility] 07-17-2023 07:48-0400 SaO2% (BldA) [Mass fraction] 97 % Cheyanne Rosas [facility] 07-17-2023 07:48-0400 Systolic blood pressure 144 mm[Hg] Cheyanne Rosas [facility] 07-15-2023 13:42-0400 Diastolic blood pressure 86 mm[Hg] Dory Shepherd [place] [address]-22-2024 13:42-0400 Heart rate 76 /min Dory Shepherd [facility] 07-15-2023 13:42-0400 Mean blood pressure 103 mm[Hg] Dory Shepherd [facility] 07-15-2023 13:42-0400 Respiratory rate 15 /min Dory Shepherd [facility] 07-15-2023 13:42-0400 Systolic blood pressure 138 mm[Hg] Dory Shepherd [facility] 07-14-2023 11:37-0400 Body temperature 97.52 [degF] Nikhil Tubbs [facility] 07-14-2023 11:37-0400 Diastolic blood pressure 80 mm[Hg] Nikhil Tubbs [facility] 07-14-2023 11:37-0400 Heart rate 98 /min Nikhil Tubbs [facility] 07-14-2023 11:37-0400 Respiratory rate 18 /min Nikhil Tubbs [facility] 07-14-2023 11:37-0400 SaO2% (BldA) [Mass fraction] 99 % Nikhil Tubbs [facility] 07-14-2023 11:37-0400 Systolic blood pressure 124 mm[Hg] Nikhil Tubbs [facility] 07-11-2023 09:23-0400 Body temperature 98.24 [degF] [facility] 07-11-2023 09:23-0400 Diastolic blood pressure 82 mm[Hg] [facility] 07-11-2023 09:23-0400 Heart rate 92 /min [facility] 07-11-2023 09:23-0400 Respiratory rate 18 /min [facility] 07-11-2023 09:23-0400 SaO2% (BldA) [Mass fraction] 99 % [facility] 07-11-2023 09:23-0400 Systolic blood pressure 151 mm[Hg] [facility] 07-06-2023 18:22-0400 Body temperature 97.88 [degF] [facility] 07-06-2023 18:22-0400 Diastolic blood pressure 99 mm[Hg] [facility] 07-06-2023 18:22-0400 Heart rate 90 /min [facility] 07-06-2023 18:22-0400 Respiratory rate 18 /min [facility] 07-06-2023 18:22-0400 SaO2% (BldA) [Mass fraction] 97 % [facility] 07-06-2023 18:22-0400 Systolic blood pressure 159 mm[Hg] [facility] 07-04-2023 10:35-0400 Body height 160.02 cm [facility] Work Phone: [facility] 07-04-2023 10:35-0400 Body weight 117.5 kg [facility] Work Phone: [facility] 07-04-2023 10:34-0400 Body temperature 97.5 [degF] [facility] Work Phone: [facility] 07-04-2023 10:34-0400 Diastolic blood pressure 78 mm[Hg] [facility] Work Phone: [facility] 07-04-2023 10:34-0400 Heart rate 98 /min [facility] Work Phone: [facility] 07-04-2023 10:34-0400 Respiratory rate 22 /min [facility] Work Phone: [facility] 07-04-2023 10:34-0400 SaO2% (BldA) [Mass fraction] 98 % [facility] Work Phone: [facility] 07-04-2023 10:34-0400 Systolic blood pressure 173 mm[Hg] [facility] Work Phone: [facility] 06-29-2023 13:37-0400 Body temperature 98.24 [degF] Nikhil Arley [facility] 06-29-2023 13:37-0400 Diastolic blood pressure 89 mm[Hg] Nikhil Arley [facility] 06-29-2023 13:37-0400 Heart rate 84 /min Nikhil Arley [facility] 06-29-2023 13:37-0400 Respiratory rate 16 /min Nikhil Arley [facility] 06-29-2023 13:37-0400 SaO2% (BldA) [Mass fraction] 97 % Nikhil Arley [facility] 06-29-2023 13:37-0400 Systolic blood pressure 153 mm[Hg] Nikhil Arley [facility] 06-27-2023 11:52-0400 Body temperature 97.7 [degF] Nikhil Arley [facility] 06-27-2023 11:52-0400 Diastolic blood pressure 82 mm[Hg] Nikhil Arley [facility] 06-27-2023 11:52-0400 Heart rate 87 /min Nikhil Arley [facility] 06-27-2023 11:52-0400 Respiratory rate 18 /min Nikhil Arley [facility] 06-27-2023 11:52-0400 SaO2% (BldA) [Mass fraction] 96 % Nikhil Arley [facility] 06-27-2023 11:52-0400 Systolic blood pressure 146 mm[Hg] Nikhil Tubbs [facility] 06-26-2023 16:39-0400 Body height 160.02 cm 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 Joshua Mariaelena Work Phone: [facility] 06-26-2023 16:39-0400 Body temperature 97.6 [degF] 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 Joshua Mariaelena Work Phone: [facility] 06-26-2023 16:39-0400 Body weight 117 kg 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 Joshua Mariaelena Work Phone: [facility] 06-26-2023 16:39-0400 Diastolic blood pressure 72 mm[Hg] 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 Joshua Mariaelena Work Phone: [facility] 06-26-2023 16:39-0400 Heart rate 92 /min 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 Joshua Mariaelena Work Phone: [facility] 06-26-2023 16:39-0400 Respiratory rate 21 /min 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 Joshua Mariaelena Work Phone: [facility] 06-26-2023 16:39-0400 SaO2% (BldA) [Mass fraction] 97 % 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 Joshua Mariaelena Work Phone: [facility] 06-26-2023 16:39-0400 Systolic blood pressure 139 mm[Hg] 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 Joshua Mariaelena Work Phone: [facility] 06-24-2023 11:30-0400 Diastolic blood pressure 78 mm[Hg] [facility] 06-24-2023 11:30-0400 Heart rate 78 /min [facility] 06-24-2023 11:30-0400 Mean blood pressure 87 mm[Hg] [facility] 06-24-2023 11:30-0400 Respiratory rate 18 /min [facility] 06-24-2023 11:30-0400 SaO2% (BldA) [Mass fraction] 97 % [facility] 06-24-2023 11:30-0400 Systolic blood pressure 106 mm[Hg] [facility] 06-24-2023 10:30-0400 Diastolic blood pressure 75 mm[Hg] [facility] 06-24-2023 10:30-0400 Heart rate 80 /min [facility] 06-24-2023 10:30-0400 Mean blood pressure 98 mm[Hg] [facility] 06-24-2023 10:30-0400 Respiratory rate 18 /min [facility] 06-24-2023 10:30-0400 SaO2% (BldA) [Mass fraction] 97 % [facility] 06-24-2023 10:30-0400 Systolic blood pressure 143 mm[Hg] [facility] 06-24-2023 09:45-0400 Body temperature 97.7 [degF] [facility] 06-24-2023 09:45-0400 Diastolic blood pressure 84 mm[Hg] [facility] 06-24-2023 09:45-0400 Heart rate 103 /min [facility] 06-24-2023 09:45-0400 Respiratory rate 17 /min [facility] 06-24-2023 09:45-0400 SaO2% (BldA) [Mass fraction] 97 % [facility] 06-24-2023 09:45-0400 Systolic blood pressure 137 mm[Hg] [facility] 06-22-2023 19:05-0400 Diastolic blood pressure 95 mm[Hg] Nikhil Tubbs [facility] 06-22-2023 19:05-0400 Heart rate 94 /min Nikhil Arley [facility] 06-22-2023 19:05-0400 Mean blood pressure 108 mm[Hg] Nikhil Arley [facility] 06-22-2023 19:05-0400 SaO2% (BldA) [Mass fraction] 94 % Nikhil Arley [facility] 06-22-2023 19:05-0400 Systolic blood pressure 135 mm[Hg] Nikhil Arley [facility] 06-22-2023 18:02-0400 Diastolic blood pressure 76 mm[Hg] Nikhil Arley [facility] 06-22-2023 18:02-0400 Heart rate 95 /min Nikhil Arley [facility] 06-22-2023 18:02-0400 Mean blood pressure 93 mm[Hg] Nikhil Arley [facility] 06-22-2023 18:02-0400 Systolic blood pressure 126 mm[Hg] Nikhil Arley [facility] 06-22-2023 17:00-0400 Blood Pressure Location Nikhil Arley [facility] 06-22-2023 17:00-0400 Diastolic blood pressure 80 mm[Hg] Nikhil Arley [facility] 06-22-2023 17:00-0400 Heart rate 93 /min Nikhil Arley [facility] 06-22-2023 17:00-0400 Mean blood pressure 97 mm[Hg] Nikhil Arley [facility] 06-22-2023 17:00-0400 Respiratory rate 18 /min Nikhil Arley [facility] 06-22-2023 17:00-0400 SaO2% (BldA) [Mass fraction] 96 % Nikhil Tubbs [facility] 06-22-2023 17:00-0400 Systolic blood pressure 130 mm[Hg] Nikhil Tubbs [facility] 06-22-2023 16:00-0400 SaO2% (BldA) [Mass fraction] 98 % Nikhil Tubbs [facility] 06-22-2023 15:20-0400 Respiratory rate 17 /min Nikhil Tubbs [facility] 06-22-2023 14:21-0400 Body temperature 98.24 [degF] Nikhil Tubbs [facility] 06-22-2023 14:21-0400 Heart rate 109 /min Nikhil Tubbs [facility] 06-22-2023 14:21-0400 Respiratory rate 16 /min Nikhil Tubbs [facility] 06-15-2023 18:05-0400 Body temperature 97.7 [degF] [facility] 06-15-2023 18:05-0400 Diastolic blood pressure 99 mm[Hg] [facility] 06-15-2023 18:05-0400 Heart rate 79 /min [facility] 06-15-2023 18:05-0400 Respiratory rate 18 /min [facility] 06-15-2023 18:05-0400 SaO2% (BldA) [Mass fraction] 99 % [facility] 06-15-2023 18:05-0400 Systolic blood pressure 125 mm[Hg] [facility] 06-15-2023 16:03-0400 Diastolic blood pressure 80 mm[Hg] Slime Sherwood DO Work Phone: [facility] 06-15-2023 16:03-0400 Heart rate 84 /min Slime Oberhauser DO Work Phone: [facility] 06-15-2023 16:03-0400 Respiratory rate 16 /min Slime Oberhauser DO Work Phone: [facility] 06-15-2023 16:03-0400 SaO2% (BldA) [Mass fraction] 98 % Slime Oberhauser DO Work Phone: [facility] 06-15-2023 16:03-0400 Systolic blood pressure 128 mm[Hg] Slime Oberhauser DO Work Phone: [facility] 06-15-2023 14:37-0400 Body height 160 cm Slime Oberhauser DO Work Phone: [facility] 06-15-2023 14:37-0400 Body mass index (BMI) [Ratio] 44.29 kg/m2 Slime Oberhauser DO Work Phone: [facility] 06-15-2023 14:37-0400 Body temperature 97 [degF] Slime Oberhauser DO Work Phone: [facility] 06-15-2023 14:37-0400 Body weight 113.4 kg Slime Oberhauser DO Work Phone: [facility] 06-11-2023 18:54-0400 Body temperature 98.24 [degF] Kaylinn Dokken [facility] 06-11-2023 18:54-0400 Diastolic blood pressure 80 mm[Hg] Kaylinn Dokken [facility] 06-11-2023 18:54-0400 Heart rate 92 /min Kaylinn Dokken [facility] 06-11-2023 18:54-0400 Respiratory rate 16 /min Kaylinn Dokken [facility] 06-11-2023 18:54-0400 SaO2% (BldA) [Mass fraction] 98 % Elisa Sánchez [facility] 06-11-2023 18:54-0400 Systolic blood pressure 135 mm[Hg] Elisa Sánchez [facility] 06-08-2023 18:35-0400 Diastolic blood pressure 86 mm[Hg] Allyson Griffiths DO Work Phone: [employer] 06-08-2023 18:35-0400 Heart rate 86 /min Allyson Griffiths DO Work Phone: [employer] 06-08-2023 18:35-0400 Respiratory rate 16 /min Allyson Griffiths DO Work Phone: [employer] 06-08-2023 18:35-0400 SaO2% (BldA) [Mass fraction] 98 % Allyson Griffiths DO Work Phone: [employer] 06-08-2023 18:35-0400 Systolic blood pressure 135 mm[Hg] Allyson Griffiths DO Work Phone: [employer] 06-08-2023 17:41-0400 Body height 160 cm Allyson Griffiths DO Work Phone: [employer] 06-08-2023 17:41-0400 Body mass index (BMI) [Ratio] 44.29 kg/m2 Allyson Griffiths DO Work Phone: [employer] 06-08-2023 17:41-0400 Body temperature 97.81 [degF] Allyson Griffiths DO Work Phone: [employer] 06-08-2023 17:41-0400 Body weight 113.4 kg Allyson Griffiths DO Work Phone: [employer] 06-05-2023 08:13-0400 Body height 160 cm Elke Adams MD Work Phone: [facility] 06-05-2023 08:13-0400 Body mass index (BMI) [Ratio] 44.29 kg/m2 Elke Adams MD Work Phone: [facility] 06-05-2023 08:13-0400 Body weight 113.4 kg Elke Adams MD Work Phone: [facility] 06-05-2023 08:13-0400 Diastolic blood pressure 88 mm[Hg] Elke Adams MD Work Phone: [facility] 06-05-2023 08:13-0400 Heart rate 85 /min Elke Adams MD Work Phone: [facility] 06-05-2023 08:13-0400 Respiratory rate 20 /min Elke Adams MD Work Phone: [facility] 06-05-2023 08:13-0400 Systolic blood pressure 133 mm[Hg] Elke Adams MD Work Phone: [facility] 06-03-2023 19:07-0400 Body temperature 98.06 [degF] Jorge Mcintosh [facility] 06-03-2023 19:07-0400 Diastolic blood pressure 88 mm[Hg] Jorge Mcintosh [facility] 06-03-2023 19:07-0400 Heart rate 71 /min Jorge Mcintosh [facility] 06-03-2023 19:07-0400 Respiratory rate 16 /min Jorge Mcintosh [facility] 06-03-2023 19:07-0400 SaO2% (BldA) [Mass fraction] 96 % Jorge Mcintosh [facility] 06-03-2023 19:07-0400 Systolic blood pressure 132 mm[Hg] Jorge Mcintosh [facility] 06-01-2023 16:07-0500 Diastolic blood pressure 81 mm[Hg] 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Radha Ferrell Work Phone: [facility] 06-01-2023 16:07-0500 Heart rate 76 /min 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Radha Ferrell Work Phone: [facility] 06-01-2023 16:07-0500 Respiratory rate 18 /min 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Radha Ferrell Work Phone: [facility] 06-01-2023 16:07-0500 SaO2% (BldA) [Mass fraction] 96 % 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Radha Ferrell Work Phone: [facility] 06-01-2023 16:07-0500 Systolic blood pressure 141 mm[Hg] ELIZABETH Ferrell Work Phone: [facility] 06-01-2023 11:49-0500 Body height 160.02 cm 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Radha Ferrell Work Phone: [facility] 06-01-2023 11:49-0500 Body temperature 97.9 [degF] 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Radha Ferrell Work Phone: [facility] 06-01-2023 11:49-0500 Body weight 97.52 kg 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Radha Ferrell Work Phone: [facility] 05-31-2023 18:12-0500 Diastolic blood pressure 104 mm[Hg] Jorge Mcintosh [facility] 05-31-2023 18:12-0500 Heart rate 71 /min Jorge Mcintosh [facility] 05-31-2023 18:12-0500 Mean blood pressure 117 mm[Hg] Jorge Mcintosh [facility] 05-31-2023 18:12-0500 Respiratory rate 18 /min Jorge Mcintosh [facility] 05-31-2023 18:12-0500 SaO2% (BldA) [Mass fraction] 97 % Jorge Arnaldo [facility] 05-31-2023 18:12-0500 Systolic blood pressure 143 mm[Hg] Jorge Arnaldo [facility] 05-31-2023 17:01-0500 Diastolic blood pressure 70 mm[Hg] Jorge Arnaldo [facility] 05-31-2023 17:01-0500 Heart rate 85 /min Jorge Arnaldo [facility] 05-31-2023 17:01-0500 Mean blood pressure 91 mm[Hg] Jorge Arnaldo [facility] 05-31-2023 17:01-0500 Respiratory rate 18 /min Jorge Rodrigueze [facility] 05-31-2023 17:01-0500 SaO2% (BldA) [Mass fraction] 96 % Jorge Arnaldo [facility] 05-31-2023 17:01-0500 Systolic blood pressure 133 mm[Hg] Jorge Arnaldo [facility] 05-31-2023 16:41-0500 Body temperature 98.6 [degF] Jorge Arnaldo [facility] 05-31-2023 16:41-0500 Diastolic blood pressure 91 mm[Hg] Jorge Arnaldo [facility] 05-31-2023 16:41-0500 Heart rate 88 /min Jorge Arnaldo [facility] 05-31-2023 16:41-0500 Respiratory rate 18 /min Jorge Arnaldo [facility] 05-31-2023 16:41-0500 SaO2% (BldA) [Mass fraction] 96 % Jorge Arnaldo [facility] 05-31-2023 16:41-0500 Systolic blood pressure 155 mm[Hg] Jorge Mcintosh [facility] 05-26-2023 19:35-0500 Body temperature 97.7 [degF] Pedro Pablo Chance [facility] 05-26-2023 19:35-0500 Diastolic blood pressure 81 mm[Hg] Pedro Pablo Chance [facility] 05-26-2023 19:35-0500 Heart rate 94 /min Pedro Pablo Chance [facility] 05-26-2023 19:35-0500 Respiratory rate 16 /min Pedro Pablo Chance [facility] 05-26-2023 19:35-0500 SaO2% (BldA) [Mass fraction] 98 % Pedro Pablo Chance [facility] 05-26-2023 19:35-0500 Systolic blood pressure 147 mm[Hg] Pedro Pablo Chance [facility] 05-25-2023 14:00-0500 Body height 160.02 cm 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 Joshua Mariaelena Work Phone: [facility] 05-25-2023 14:00-0500 Body temperature 97.7 [degF] 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 Joshua Mariaelena Work Phone: [facility] 05-25-2023 14:00-0500 Body weight 116 kg 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 Joshua Mariaelena Work Phone: [facility] 05-25-2023 14:00-0500 Diastolic blood pressure 86 mm[Hg] 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 Joshua Mariaelena Work Phone: [facility] 05-25-2023 14:00-0500 Heart rate 89 /min 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 Joshua Mariaelena Work Phone: [facility] 05-25-2023 14:00-0500 Respiratory rate 16 /min 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Radha Ferrell Work Phone: [facility] 05-25-2023 14:00-0500 SaO2% (BldA) [Mass fraction] 96 % ELIZABETH Ferrell Work Phone: [facility] 05-25-2023 14:00-0500 Systolic blood pressure 134 mm[Hg] ELIZABETH Ferrell Work Phone: [facility] 05-24-2023 19:20-0500 Body temperature 97.7 [degF] Nikhil Tubbs [facility] 05-24-2023 19:20-0500 Diastolic blood pressure 95 mm[Hg] Nikhil Tubbs [facility] 05-24-2023 19:20-0500 Heart rate 98 /min Nikhil Tubbs [facility] 05-24-2023 19:20-0500 Respiratory rate 16 /min Nikhil Tubbs [facility] 05-24-2023 19:20-0500 SaO2% (BldA) [Mass fraction] 96 % Nikhil Tubbs [facility] 05-24-2023 19:20-0500 Systolic blood pressure 151 mm[Hg] Nikhil Tubbs [facility] 05-19-2023 12:01-0500 Body height 160.02 cm PHYSICIAN NO [facility] 05-19-2023 12:01-0500 Body temperature 98.1 [degF] PHYSICIAN NO [facility] 05-19-2023 12:01-0500 Body weight 115 kg PHYSICIAN NO [facility] 05-19-2023 12:01-0500 Diastolic blood pressure 80 mm[Hg] PHYSICIAN NO [facility] 02-25-2024 12:01-0500 Heart rate 97 /min PHYSICIAN NO [facility] 05-19-2023 12:01-0500 Respiratory rate 18 /min PHYSICIAN NO [facility] 05-19-2023 12:01-0500 SaO2% (BldA) [Mass fraction] 98 % PHYSICIAN NO [facility] 05-19-2023 12:01-0500 Systolic blood pressure 165 mm[Hg] PHYSICIAN NO [facility] 05-16-2023 16:20-0500 Body temperature 98.06 [degF] Nikhil Tubbs [facility] 05-16-2023 16:20-0500 Diastolic blood pressure 93 mm[Hg] Nikhil Tubbs [facility] 05-16-2023 16:20-0500 Heart rate 86 /min Nikhil Tubbs [facility] 05-16-2023 16:20-0500 Respiratory rate 16 /min Nikhil Tubbs [facility] 05-16-2023 16:20-0500 SaO2% (BldA) [Mass fraction] 100 % Nikhil Tubbs [facility] 05-16-2023 16:20-0500 Systolic blood pressure 162 mm[Hg] Nikhil Tubbs [facility] 05-14-2023 10:24-0500 Body temperature 97.52 [degF] Jorge Mcintosh [facility] 05-14-2023 10:24-0500 Diastolic blood pressure 86 mm[Hg] Jorge Mcintosh [facility] 05-14-2023 10:24-0500 Heart rate 85 /min Jorge Mcintosh [facility] 05-14-2023 10:24-0500 Respiratory rate 18 /min Jorge Mcintosh [facility] 05-14-2023 10:24-0500 SaO2% (BldA) [Mass fraction] 96 % Jorge Mcintosh [facility] 05-14-2023 10:24-0500 Systolic blood pressure 143 mm[Hg] Jorge Mcintosh [facility] 05-12-2023 10:19-0500 Body temperature 97.88 [degF] Nikhil Tubbs [facility] 05-12-2023 10:19-0500 Diastolic blood pressure 107 mm[Hg] Nikhil Tubbs [facility] 05-12-2023 10:19-0500 Heart rate 82 /min Nikhil Tubbs [facility] 05-12-2023 10:19-0500 Respiratory rate 18 /min Nikhil Tubbs [facility] 05-12-2023 10:19-0500 SaO2% (BldA) [Mass fraction] 96 % Nikhil Tubbs [facility] 05-12-2023 10:19-0500 Systolic blood pressure 156 mm[Hg] Nikhil Tubbs [facility] 05-11-2023 16:23-0500 Body temperature 97.88 [degF] Jorge Mcintosh [facility] 05-11-2023 16:23-0500 Diastolic blood pressure 102 mm[Hg] Jorge Mcintosh [facility] 05-11-2023 16:23-0500 Heart rate 89 /min Jorge Mcintosh [facility] 05-11-2023 16:23-0500 Respiratory rate 16 /min Jorge Mcintosh [facility] 05-11-2023 16:23-0500 SaO2% (BldA) [Mass fraction] 97 % Jorge Mcintosh [facility] 05-11-2023 16:23-0500 Systolic blood pressure 163 mm[Hg] Jorge Mcintosh [facility] 05-08-2023 12:41-0500 Diastolic blood pressure 62 mm[Hg] [facility] 05-08-2023 12:41-0500 Heart rate 78 /min [facility] 05-08-2023 12:41-0500 Mean blood pressure 80 mm[Hg] [facility] 05-08-2023 12:41-0500 Respiratory rate 16 /min [facility] 05-08-2023 12:41-0500 SaO2% (BldA) [Mass fraction] 95 % [facility] 05-08-2023 12:41-0500 Systolic blood pressure 115 mm[Hg] [facility] 05-08-2023 12:00-0500 Diastolic blood pressure 74 mm[Hg] [facility] 05-08-2023 12:00-0500 Mean blood pressure 95 mm[Hg] [facility] 05-08-2023 12:00-0500 SaO2% (BldA) [Mass fraction] 96 % [facility] 05-08-2023 12:00-0500 Systolic blood pressure 138 mm[Hg] [facility] 05-08-2023 11:27-0500 Body temperature 98.06 [degF] [facility] 05-08-2023 11:27-0500 Diastolic blood pressure 93 mm[Hg] [facility] 05-08-2023 11:27-0500 Heart rate 97 /min [facility] 05-08-2023 11:27-0500 Respiratory rate 18 /min [facility] 05-08-2023 11:27-0500 SaO2% (BldA) [Mass fraction] 95 % [facility] 05-08-[facility]23 11:27-0500 Systolic blood pressure 166 mm[Hg] [facility] 05-05-2023 11:58-0500 Body height 160.02 cm PHYSICIAN NO [facility] 05-05-2023 11:58-0500 Body temperature 97.4 [degF] PHYSICIAN NO [facility] 05-05-2023 11:58-0500 Body weight 115.3 kg PHYSICIAN NO [facility] 05-05-2023 11:58-0500 Diastolic blood pressure 89 mm[Hg] PHYSICIAN NO [facility] 05-05-2023 11:58-0500 Heart rate 91 /min PHYSICIAN NO [facility] 05-05-2023 11:58-0500 Respiratory rate 20 /min PHYSICIAN NO [facility] 05-05-2023 11:58-0500 SaO2% (BldA) [Mass fraction] 98 % PHYSICIAN NO [facility] 05-05-2023 11:58-0500 Systolic blood pressure 152 mm[Hg] PHYSICIAN NO [facility] 04-28-2023 00:38-0500 Diastolic blood pressure 89 mm[Hg] Sal Mena MD Work Phone: [facility] 04-28-2023 00:38-0500 Heart rate 76 /min Sal Mena MD Work Phone: [facility] 04-28-2023 00:38-0500 Respiratory rate 16 /min Sal Mena MD Work Phone: [facility] 04-28-2023 00:38-0500 SaO2% (BldA) [Mass fraction] 99 % Sal Mena MD Work Phone: [facility] 04-28-2023 00:38-0500 Systolic blood pressure 160 mm[Hg] Sal Mena MD Work Phone: [facility] 04-27-2023 22:40-0500 Body temperature 97.81 [degF] Sal Mena MD Work Phone: [facility] 04-26-2023 09:29-0500 Body temperature 97.52 [degF] [facility] 04-26-2023 09:29-0500 Diastolic blood pressure 80 mm[Hg] [facility] 04-26-2023 09:29-0500 Heart rate 87 /min [facility] 04-26-2023 09:29-0500 Respiratory rate 20 /min [facility] 04-26-2023 09:29-0500 SaO2% (BldA) [Mass fraction] 96 % [facility] 04-26-2023 09:29-0500 Systolic blood pressure 166 mm[Hg] [facility] 04-22-2023 20:11-0500 Body temperature 98.06 [degF] Pedro Pablo Chance [facility] 04-22-2023 20:11-0500 Diastolic blood pressure 82 mm[Hg] Pedro Pablo [facility] 04-22-2023 20:11-0500 Heart rate 93 /min Pedro Pablo [facility] 04-22-2023 20:11-0500 Respiratory rate 18 /min Pedro Pablo [facility] 04-22-2023 20:11-0500 SaO2% (BldA) [Mass fraction] 96 % Pedro Pablo [facility] 04-22-2023 20:11-0500 Systolic blood pressure 166 mm[Hg] Pedro Pablo Chance [facility] 04-12-2023 14:11-0500 Body height 160.02 cm [facility] 04-12-2023 14:11-0500 Body temperature 97.9 [degF] [facility] 04-12-2023 14:11-0500 Body weight 114.5 kg [facility] 04-12-2023 14:11-0500 Diastolic blood pressure 98 mm[Hg] [facility] 04-12-2023 14:11-0500 Heart rate 99 /min [facility] 04-12-2023 14:11-0500 Respiratory rate 18 /min [facility] 04-12-2023 14:11-0500 SaO2% (BldA) [Mass fraction] 98 % [facility] 04-12-2023 14:11-0500 Systolic blood pressure 193 mm[Hg] [facility] 04-11-2023 18:31-0500 Body temperature 97.34 [degF] [facility] 04-11-2023 18:31-0500 Diastolic blood pressure 105 mm[Hg] [facility] 04-11-2023 18:31-0500 Heart rate 87 /min [facility] 04-11-2023 18:31-0500 Respiratory rate 20 /min [facility] 04-11-2023 18:31-0500 SaO2% (BldA) [Mass fraction] 96 % [facility] 04-11-2023 18:31-0500 Systolic blood pressure 160 mm[Hg] [facility] 04-11-2023 01:00-0500 Hourly Rounding [facility] 04-11-2023 01:00-0500 Promise to Return [facility] 04-11-2023 00:00-0500 Hourly Rounding [facility] 04-11-2023 00:00-0500 Promise to Return [facility] 04-10-2023 23:00-0500 Hourly Rounding [facility] 04-10-2023 23:00-0500 Promise to Return [facility] 04-10-2023 22:05-0500 Body temperature 97.34 [degF] Pedro [facility] 04-10-2023 22:05-0500 Diastolic blood pressure 95 mm[Hg] Pedro Pablo [facility] 04-10-2023 22:05-0500 Heart rate 80 /min Pedro Pablo [facility] 04-10-2023 22:05-0500 Respiratory rate 16 /min Pedro Pablo [facility] 04-10-2023 22:05-0500 SaO2% (BldA) [Mass fraction] 95 % [facility] 04-10-2023 22:05-0500 Systolic blood pressure 156 mm[Hg] Pedro Pablo [facility] 04-05-2023 15:30-0500 Diastolic blood pressure 82 mm[Hg] Nikhil Arley [facility] 04-05-2023 15:30-0500 Heart rate 76 /min Nikhil Arley [facility] 04-05-2023 15:30-0500 Mean blood pressure 100 mm[Hg] Nikhil Arley [facility] 04-05-2023 15:30-0500 Respiratory rate 17 /min Nikhil Arley [facility] 04-05-2023 15:30-0500 SaO2% (BldA) [Mass fraction] 97 % Nikhil Arley [facility] 04-05-2023 15:30-0500 Systolic blood pressure 137 mm[Hg] Nikhil Arley [facility] 04-05-2023 15:00-0500 Diastolic blood pressure 85 mm[Hg] Nikhil Arley [facility] 04-05-2023 15:00-0500 Heart rate 84 /min Nikhil Arley [facility] 04-05-2023 15:00-0500 Mean blood pressure 108 mm[Hg] Nikhil Arley [facility] 04-05-2023 15:00-0500 Systolic blood pressure 153 mm[Hg] Nikhil Arley [facility] 04-05-2023 14:30-0500 Diastolic blood pressure 66 mm[Hg] Nikhil Arley [facility] 04-05-2023 14:30-0500 Heart rate 81 /min Nikhil Arley [facility] 04-05-2023 14:30-0500 Mean blood pressure 88 mm[Hg] Nikhil Arley [facility] 04-05-2023 14:30-0500 Respiratory rate 18 /min Inkhil Arley [facility] 04-05-2023 14:30-0500 SaO2% (BldA) [Mass fraction] 96 % Nikhil Arley [facility] 04-05-2023 14:30-0500 Systolic blood pressure 131 mm[Hg] Nikhil Arley [facility] 04-05-2023 12:34-0500 Body temperature 98.06 [degF] Nikhil Arley [facility] 04-05-2023 12:34-0500 Heart rate 92 /min Nikhil Tubbs [facility] 04-02-2023 21:43-0500 Body temperature 97.34 [degF] Elisa Sánchez [facility] 04-02-2023 21:43-0500 Diastolic blood pressure 94 mm[Hg] Houstoninn Dokken [facility] 04-02-2023 21:43-0500 Heart rate 96 /min Paulan kken [facility] 04-02-2023 21:43-0500 Respiratory rate 20 /min Paulan Dokken [facility] 04-02-2023 21:43-0500 SaO2% (BldA) [Mass fraction] 96 % Paulan Dokken [facility] 04-02-2023 21:43-0500 Systolic blood pressure 145 mm[Hg] Paulan Dokken [facility] 04-01-2023 08:21-0500 Body height 160 cm Chidi Yuen MD Work Phone: [facility] 04-01-2023 08:21-0500 Body mass index (BMI) [Ratio] 43.22 kg/m2 Chidi Yuen MD Work Phone: [facility] 04-01-2023 08:21-0500 Body temperature 97.5 [degF] Chidi Yuen MD Work Phone: [facility] 04-01-2023 08:21-0500 Body weight 110.68 kg Chidi Yuen MD Work Phone: [facility] 04-01-2023 08:21-0500 Diastolic blood pressure 87 mm[Hg] Chidi Yuen MD Work Phone: [facility] 04-01-2023 08:21-0500 Heart rate 92 /min Chidi Yuen MD Work Phone: [facility] 04-01-2023 08:21-0500 Respiratory rate 16 /min Chiid Yuen MD Work Phone: [facility] 04-01-2023 08:21-0500 Systolic blood pressure 138 mm[Hg] Chidi Yuen MD Work Phone: [facility] 03-29-2023 10:06-0500 Body height 160.02 cm 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 Estelle Veliz Work Phone: [facility] 03-29-2023 10:06-0500 Body temperature 97.5 [degF] 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 Estelle Veliz Work Phone: [facility] 03-29-2023 10:06-0500 Body weight 111 kg 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 Estelle Veliz Work Phone: [facility] 03-29-2023 10:06-0500 Diastolic blood pressure 86 mm[Hg] 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 Estelle Veliz Work Phone: [facility] 03-29-2023 10:06-0500 Heart rate 85 /min 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 Estelle Veliz Work Phone: [facility] 03-29-2023 10:06-0500 Respiratory rate 20 /min 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 Estelle Veliz Work Phone: [facility] 03-29-2023 10:06-0500 SaO2% (BldA) [Mass fraction] 96 % 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 Estelle Veliz Work Phone: [facility] 03-29-2023 10:06-0500 Systolic blood pressure 133 mm[Hg] 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 Estelle Veliz Work Phone: [facility] 03-26-2023 12:43-0500 Diastolic blood pressure 80 mm[Hg] Jorge Mcintosh [facility] 03-26-2023 12:43-0500 Heart rate 79 /min Jorge Mcintosh [facility] 03-26-2023 12:43-0500 Respiratory rate 16 /min Jorge Mcintosh [facility] 03-26-2023 12:43-0500 SaO2% (BldA) [Mass fraction] 100 % Jorge Mcintosh [facility] 03-26-2023 12:43-0500 Systolic blood pressure 109 mm[Hg] Jorge Mcintosh [facility] 03-26-2023 10:55-0500 Body temperature 97.88 [degF] Jorge Mcintosh [facility] 03-26-2023 10:55-0500 Diastolic blood pressure 75 mm[Hg] Jorge Mcintosh [facility] 03-26-2023 10:55-0500 Heart rate 88 /min Jorge Mcintosh [facility] 03-26-2023 10:55-0500 Respiratory rate 16 /min Jorge Mcintosh [facility] 03-26-2023 10:55-0500 SaO2% (BldA) [Mass fraction] 95 % Jorge Mcintosh [facility] 03-26-2023 10:55-0500 Systolic blood pressure 132 mm[Hg] Jorge Mcintosh [facility] 2023 13:28-0500 Body height 160.02 cm ELIZABETH Veliz Work Phone: [facility] 2023 13:28-0500 Body temperature 97.8 [degF] 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 Estelle Veliz Work Phone: [facility] 2023 13:28-0500 Body weight 112.3 kg 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 Estelle Veliz Work Phone: [facility] 2023 13:28-0500 Diastolic blood pressure 85 mm[Hg] ELIZABETH Veliz Work Phone: [facility] 2023 13:28-0500 Heart rate 72 /min ELIZABETH Veliz Work Phone: [facility] 2023 13:28-0500 Respiratory rate 20 /min ELIZABETH Veliz Work Phone: [facility] 2023 13:28-0500 SaO2% (BldA) [Mass fraction] 98 % ELIZABETH Veliz Work Phone: [facility] 2023 13:28-0500 Systolic blood pressure 148 mm[Hg] ELIZABTEH Veliz Work Phone: [facility] 03-23-2023 12:47-0500 Body temperature 97.7 [degF] Nikhil Tubbs [facility] 03-23-2023 12:47-0500 Diastolic blood pressure 100 mm[Hg] Nikhil Tubbs [facility] 03-23-2023 12:47-0500 Heart rate 77 /min Nikhil Tubbs [facility] 03-23-2023 12:47-0500 Respiratory rate 16 /min Nikhil Tubbs [facility] 03-23-2023 12:47-0500 SaO2% (BldA) [Mass fraction] 98 % Nikhil Arley [facility] 03-23-2023 12:47-0500 Systolic blood pressure 158 mm[Hg] Nikhil Arley [facility] 03-20-2023 13:07-0500 Body temperature 98.06 [degF] Elisa Dokken [facility] 03-20-2023 13:07-0500 Diastolic blood pressure 87 mm[Hg] Kaylinn Dokken [facility] 03-20-2023 13:07-0500 Heart rate 99 /min Elisa Sánchez [facility] 03-20-2023 13:07-0500 Respiratory rate 16 /[facility] 03-20-2023 13:07-0500 SaO2% (BldA) [Mass fraction] 97 % [place]ha Sánchez [facility] 03-20-2023 13:07-0500 Systolic blood pressure 125 mm[Hg] Elisa Fuentesen [facility] 03-11-2023 10:57-0500 Blood Pressure Location [facility] 03-11-2023 10:57-0500 Diastolic blood pressure 83 mm[Hg] [facility] 03-11-2023 10:57-0500 Heart rate 82 /min [facility] 03-11-2023 10:57-0500 Mean blood pressure 110 mm[Hg] [facility] 03-11-2023 10:57-0500 Respiratory rate 16 /min [facility] 03-11-2023 10:57-0500 SaO2% (BldA) [Mass fraction] 97 % [facility] 03-11-2023 10:57-0500 Systolic blood pressure 163 mm[Hg] [facility] 03-11-2023 10:13-0500 Blood Pressure Location [facility] 03-11-2023 10:13-0500 Diastolic blood pressure 99 mm[Hg] [facility] 03-11-2023 10:13-0500 Heart rate 64 /min [facility] 12-18-2023 10:13-0500 Mean blood pressure 117 mm[Hg] [facility] 03-11-2023 10:13-0500 Respiratory rate 16 /min [facility] 03-11-2023 10:13-0500 SaO2% (BldA) [Mass fraction] 95 % [facility] 03-11-2023 10:13-0500 Systolic blood pressure 154 mm[Hg] [facility] 03-11-2023 09:02-0500 Body temperature 97.88 [degF] [facility] 03-11-2023 09:02-0500 Diastolic blood pressure 94 mm[Hg] [facility] 03-11-2023 09:02-0500 Heart rate 76 /min [facility] 03-11-2023 09:02-0500 Respiratory rate 20 /min [facility] 03-11-2023 09:02-0500 SaO2% (BldA) [Mass fraction] 96 % [facility] 03-11-2023 09:02-0500 Systolic blood pressure 143 mm[Hg] [facility] 03-09-2023 10:24-0500 Body height 160.02 cm PHYSICIAN NO [facility] 03-09-2023 10:24-0500 Body temperature 97.9 [degF] PHYSICIAN NO [facility] 03-09-2023 10:24-0500 Body weight 110 kg PHYSICIAN NO [facility] 03-09-2023 10:24-0500 Diastolic blood pressure 87 mm[Hg] PHYSICIAN NO [facility] 03-09-2023 10:24-0500 Heart rate 97 /min PHYSICIAN NO [facility] 03-09-2023 10:24-0500 Respiratory rate 16 /min PHYSICIAN NO [facility] 03-09-2023 10:24-0500 SaO2% (BldA) [Mass fraction] 96 % PHYSICIAN NO [facility] 03-09-2023 10:24-0500 Systolic blood pressure 154 mm[Hg] PHYSICIAN NO [facility] 02-21-2023 17:00-0500 Body height 160.02 cm [facility] Work Phone: [facility] 02-21-2023 17:00-0500 Body weight 110.95 kg [facility] Work Phone: [facility] 02-21-2023 16:59-0500 Body temperature 97.3 [degF] [facility] Work Phone: [facility] 02-21-2023 16:59-0500 Diastolic blood pressure 86 mm[Hg] [facility] Work Phone: [facility] 02-21-2023 16:59-0500 Heart rate 91 /min [facility] [employer] Work Phone: [facility] 02-21-2023 16:59-0500 Respiratory rate 20 /min [facility] [employer] Work Phone: [facility] 02-21-2023 16:59-0500 SaO2% (BldA) [Mass fraction] 97 % [email or web address] [facility] Work Phone: [facility] 02-21-2023 16:59-0500 Systolic blood pressure 183 mm[Hg] [facility] [employer] Work Phone: [facility] 02-12-2023 19:48-0500 Body temperature 98.06 [degF] Pedro Pablo [facility] 02-12-2023 19:48-0500 Diastolic blood pressure 84 mm[Hg] Pedro Pablo Chance [facility] 02-12-2023 19:48-0500 Heart rate 98 /min Pedro Pablo [facility] 02-12-2023 19:48-0500 Respiratory rate 18 /min Pedro Pablo [facility] 02-12-2023 19:48-0500 SaO2% (BldA) [Mass fraction] 100 % Pedro Pablo [facility] 02-12-2023 19:48-0500 Systolic blood pressure 134 mm[Hg] Pedro Pablo Chance [facility] 02-08-2023 17:18-0500 Body height 160.02 cm [facility] [employer] Work Phone: [facility] 02-08-2023 17:18-0500 Body temperature 98.5 [degF] [facility] [employer] Work Phone: [facility] 02-08-2023 17:18-0500 Body weight 108.86 kg [facility] [employer] Work Phone: [facility] 02-08-2023 17:18-0500 Diastolic blood pressure 115 mm[Hg] [facility] [employer] Work Phone: [facility] 02-08-2023 17:18-0500 Heart rate 98 /min [facility] [employer] Work Phone: [facility] 02-08-2023 17:18-0500 Respiratory rate 18 /min [facility] [employer] Work Phone: [facility] 02-08-2023 17:18-0500 SaO2% (BldA) [Mass fraction] 98 % [facility] [employer] Work Phone: [facility] 02-08-2023 17:18-0500 Systolic blood pressure 167 mm[Hg] [facility] [employer] Work Phone: [facility] 02-07-2023 19:28-0500 Body temperature 97.88 [degF] [facility] Dok[facility] 02-07-2023 19:28-0500 Diastolic blood pressure 84 mm[Hg] Kaylinn Dokken [facility] 02-07-2023 19:28-0500 Heart rate 114 /min Kaylinn Dokken [facility] 02-07-2023 19:28-0500 Respiratory rate 18 /min Elisa Sánchez [facility] 02-07-2023 19:28-0500 SaO2% (BldA) [Mass fraction] 99 % Elisa Sánchez [facility] 02-07-2023 19:28-0500 Systolic blood pressure 163 mm[Hg] Elisa Sánchez [facility] 02-04-2023 13:13-0500 Diastolic blood pressure 91 mm[Hg] [facility] [email or web address] [facility] Work Phone: [facility] 02-04-2023 13:13-0500 Heart rate 95 /min [facility] Work Phone: [facility] 02-04-2023 13:13-0500 Respiratory rate 18 /min [facility] [email or web address] [facility] Work Phone: [facility] 02-04-2023 13:13-0500 SaO2% (BldA) [Mass fraction] 99 % [facility] Work Phone: [facility] 02-04-2023 13:13-0500 Systolic blood pressure 145 mm[Hg] [facility] Work Phone: [facility] 02-04-2023 11:54-0500 Body height 160.02 cm [facility] Work Phone: [facility] 02-04-2023 11:54-0500 Body temperature 98.1 [degF] [facility] Work Phone: [facility] 02-04-2023 11:54-0500 Body weight 110.15 kg [facility] Work Phone: [facility] 02-02-2023 13:17-0500 Body height 160.02 cm [email or web address] [facility] Work Phone: [facility] 02-02-2023 13:17-0500 Body temperature 98.7 [degF] [facility] Work Phone: [facility] 02-02-2023 13:17-0500 Body weight 112.2 kg [facility] Work Phone: [facility] 02-02-2023 13:17-0500 Diastolic blood pressure 92 mm[Hg] [facility] Work Phone: [facility] 02-02-2023 13:17-0500 Heart rate 96 /min [facility] Work Phone: [facility] 02-02-2023 13:17-0500 Respiratory rate 24 /min [email or web address] [facility] Work Phone: [facility] 02-02-2023 13:17-0500 SaO2% (BldA) [Mass fraction] 98 % [facility] [employer] Work Phone: [facility] 02-02-2023 13:17-0500 Systolic blood pressure 171 mm[Hg] [facility] [employer] Work Phone: [facility] 01-29-2023 11:35-0500 Body temperature 98.06 [degF] Jorge Rodrigueze [facility] 01-29-2023 11:35-0500 Diastolic blood pressure 87 mm[Hg] Jorge Rodrigueze [facility] 01-29-2023 11:35-0500 Heart rate 84 /min Jorge Arnaldo [facility] 01-29-2023 11:35-0500 Respiratory rate 18 /min Jorge Rodrigueze [facility] 01-29-2023 11:35-0500 SaO2% (BldA) [Mass fraction] 97 % Jorge Rodrigueze [facility] 01-29-2023 11:35-0500 Systolic blood pressure 140 mm[Hg] Jorge Rodrigueze [facility] 01-27-2023 10:41-0500 Body height 163.19 cm [facility] Work Phone: [facility] 01-27-2023 10:41-0500 Body weight 110 kg [facility] Work Phone: [facility] 01-27-2023 10:39-0500 Body temperature 98.2 [degF] [facility] Work Phone: [facility] 01-27-2023 10:39-0500 Diastolic blood pressure 100 mm[Hg] [facility] Work Phone: [facility] 01-27-2023 10:39-0500 Heart rate 96 /min [facility] Work Phone: [facility] 01-27-2023 10:39-0500 Respiratory rate 18 /min [facility] Work Phone: [facility] 01-27-2023 10:39-0500 SaO2% (BldA) [Mass fraction] 98 % [facility] Work Phone: [facility] 01-27-2023 10:39-0500 Systolic blood pressure 140 mm[Hg] [facility] Work Phone: [facility] 01-23-2023 13:19-0400 Body height 160.02 cm [facility] Work Phone: [facility] 01-23-2023 13:19-0400 Body temperature 97.4 [degF] [facility] Work Phone: [facility] 01-23-2023 13:19-0400 Body weight 113.4 kg [facility] Work Phone: [facility] 01-23-2023 13:19-0400 Diastolic blood pressure 85 mm[Hg] [facility] Work Phone: [facility] 01-23-2023 13:19-0400 Heart rate 81 /min [facility] Work Phone: [facility] 01-23-2023 13:19-0400 Respiratory rate 20 /min Services [facility] Work Phone: [facility] 01-23-2023 13:19-0400 SaO2% (BldA) [Mass fraction] 99 % Services [facility] Work Phone: [facility] 01-23-2023 13:19-0400 Systolic blood pressure 154 mm[Hg] Services [facility] Work Phone: [facility] 01-22-2023 18:48-0400 Body temperature 97.52 [degF] [facility] 01-22-2023 18:48-0400 Diastolic blood pressure 97 mm[Hg] [facility] 01-22-2023 18:48-0400 Heart rate 85 /min [facility] 01-22-2023 18:48-0400 Respiratory rate 16 /min [facility] 01-22-2023 18:48-0400 SaO2% (BldA) [Mass fraction] 96 % [facility] 01-22-2023 18:48-0400 Systolic blood pressure 143 mm[Hg] [facility] 01-22-2023 13:45-0400 Body height 160 cm Jori Cam MD PhD Work Phone: [facility] 01-22-2023 13:45-0400 Body mass index (BMI) [Ratio] 43.08 kg/m2 Jori Cam MD PhD Work Phone: [facility] 01-22-2023 13:45-0400 Body temperature 96.8 [degF] Jori Cam MD PhD Work Phone: [facility] 01-22-2023 13:45-0400 Body weight 110.31 kg Jori Cam MD PhD Work Phone: [facility] 10-31-2023 13:45-0400 Diastolic blood pressure 84 mm[Hg] Jori Cam MD PhD Work Phone: [facility] 01-22-2023 13:45-0400 Heart rate 97 /min Jori Cam MD PhD Work Phone: [facility] 01-22-2023 13:45-0400 Systolic blood pressure 160 mm[Hg] Jori Cam MD PhD Work Phone: [facility] 01-15-2023 13:20-0400 Body height 160 cm Antonio Newbill PA-C Work Phone: [facility] 01-15-2023 13:20-0400 Body mass index (BMI) [Ratio] 44.04 kg/m2 Antonio Newbill PA-C Work Phone: [facility] 01-15-2023 13:20-0400 Body temperature 97.5 [degF] Antonio Newbill PA-C Work Phone: [facility] 01-15-2023 13:20-0400 Body weight 112.76 kg Antonio Newbill PA-C Work Phone: [facility] 01-15-2023 13:20-0400 Diastolic blood pressure 90 mm[Hg] Antonio Newbill PA-C Work Phone: [facility] 01-15-2023 13:20-0400 Heart rate 92 /min Antonio Newbill PA-C Work Phone: [facility] 01-15-2023 13:20-0400 SaO2% (BldA) [Mass fraction] 94 % Antonio Newbill PA-C Work Phone: [facility] 01-15-2023 13:20-0400 Systolic blood pressure 144 mm[Hg] Antonio Newbill PA-C Work Phone: [facility] 01-14-2023 14:35-0400 Body temperature 97.52 [degF] Jorge Mcintosh [facility] 01-14-2023 14:35-0400 Diastolic blood pressure 81 mm[Hg] Jorge Mcintosh [facility] 01-14-2023 14:35-0400 Heart rate 81 /min Jorge Mcintosh [facility] 01-14-2023 14:35-0400 Respiratory rate 22 /min Jorge Mcintosh [facility] 01-14-2023 14:35-0400 SaO2% (BldA) [Mass fraction] 95 % Jorge Mcintosh [facility] 01-14-2023 14:35-0400 Systolic blood pressure 118 mm[Hg] Jorge Mcintosh [facility] 01-12-2023 21:30-0400 Body temperature 98.06 [degF] [facility] 01-12-2023 21:30-0400 Diastolic blood pressure 80 mm[Hg] [facility] 01-12-2023 21:30-0400 Heart rate 78 /min [facility] 01-12-2023 21:30-0400 Mean blood pressure 100 mm[Hg] [facility] 01-12-2023 21:30-0400 Respiratory rate 16 /min [facility] 01-12-2023 21:30-0400 SaO2% (BldA) [Mass fraction] 98 % [facility] 01-12-2023 21:30-0400 Systolic blood pressure 140 mm[Hg] [facility] 01-12-2023 21:00-0400 Diastolic blood pressure 67 mm[Hg] [facility] 01-12-2023 21:00-0400 Heart rate 70 /min [facility] 01-12-2023 21:00-0400 Mean blood pressure 91 mm[Hg] [facility] 01-12-2023 21:00-0400 Systolic blood pressure 138 mm[Hg] [facility] 01-12-2023 20:24-0400 Body temperature 98.06 [degF] [facility] 01-12-2023 20:24-0400 Diastolic blood pressure 84 mm[Hg] [facility] 01-12-2023 20:24-0400 Heart rate 79 /min [facility] 01-12-2023 20:24-0400 Respiratory rate 20 /min [facility] 01-12-2023 20:24-0400 SaO2% (BldA) [Mass fraction] 97 % [facility] 01-12-2023 20:24-0400 Systolic blood pressure 144 mm[Hg] [facility] 01-12-2023 10:20-0400 Body height 160.02 cm [facility] Work Phone: [facility] 01-12-2023 10:20-0400 Body temperature 97.8 [degF] [facility] Work Phone: [facility] 01-12-2023 10:20-0400 Body weight 113.39 kg [facility] Work Phone: [facility] 01-12-2023 10:20-0400 Diastolic blood pressure 75 mm[Hg] [facility] Work Phone: [facility] 01-12-2023 10:20-0400 Heart rate 79 /min [facility] Work Phone: [facility] 01-12-2023 10:20-0400 Respiratory rate 18 /min [facility] Work Phone: [facility] 01-12-2023 10:20-0400 SaO2% (BldA) [Mass fraction] 96 % [facility] Work Phone: [facility] 01-12-2023 10:20-0400 Systolic blood pressure 130 mm[Hg] [facility] [employer] Work Phone: [facility] 01-10-2023 10:32-0400 Body temperature 97.88 [degF] Nikhil Tubbs [facility] 01-10-2023 10:32-0400 Diastolic blood pressure 92 mm[Hg] Nikhil Arley [facility] 01-10-2023 10:32-0400 Heart rate 75 /min Nikhil Tubbs [facility] 01-10-2023 10:32-0400 Respiratory rate 18 /min Nikhil Tubbs [facility] 01-10-2023 10:32-0400 SaO2% (BldA) [Mass fraction] 98 % Nikhil Tubbs [facility] 01-10-2023 10:32-0400 Systolic blood pressure 138 mm[Hg] Nikhil Tubbs [facility] 01-10-2023 08:40-0400 Body height 162.56 cm Joe Meza Other [employer] [facility] [employer] Other 01-10-2023 08:40-0400 Body mass index (BMI) [Ratio] 43.94 kg/m2 Joe Meza Other [employer] Other 01-10-2023 08:40-0400 Body weight 116.12 kg Joe Meza Other [employer] Other 01-07-2023 11:04-0400 Body height 160.02 cm [facility] [employer] Work Phone: [facility] 01-07-2023 11:04-0400 Body temperature 97.5 [degF] [facility] [employer] Work Phone: [facility] 01-07-2023 11:04-0400 Body weight 108.86 kg [facility] [employer] Work Phone: [facility] 01-07-2023 11:04-0400 Diastolic blood pressure 81 mm[Hg] [facility] [employer] Work Phone: [facility] 01-07-2023 11:04-0400 Heart rate 75 /min [facility] [employer] Work Phone: [facility] 01-07-2023 11:04-0400 Respiratory rate 18 /min Services [facility] [employer] Work Phone: [facility] 01-07-2023 11:04-0400 SaO2% (BldA) [Mass fraction] 97 % [facility] [employer] Work Phone: [facility] 01-07-2023 11:04-0400 Systolic blood pressure 159 mm[Hg] Services [facility] [employer] Work Phone: [facility] 01-04-2023 23:07-0400 Diastolic blood pressure 83 mm[Hg] [facility] 01-04-2023 23:07-0400 Heart rate 77 /min [facility] 01-04-2023 23:07-0400 Respiratory rate 18 /min [facility] 01-04-2023 23:07-0400 SaO2% (BldA) [Mass fraction] 95 % [facility] 01-04-2023 23:07-0400 Systolic blood pressure 124 mm[Hg] [facility] 01-04-2023 21:12-0400 Body temperature 97.88 [degF] [facility] 01-04-2023 21:12-0400 Diastolic blood pressure 82 mm[Hg] [facility] 01-04-2023 21:12-0400 Heart rate 81 /min [facility] 01-04-2023 21:12-0400 Respiratory rate 16 /min [facility] 01-04-2023 21:12-0400 SaO2% (BldA) [Mass fraction] 98 % [facility] 01-04-2023 21:12-0400 Systolic blood pressure 121 mm[Hg] [facility] 01-04-2023 15:17-0400 Body height 160.02 cm [facility] [employer] Work Phone: [facility] 01-04-2023 15:17-0400 Body temperature 98.5 [degF] [facility] [employer] Work Phone: [facility] 01-04-2023 15:17-0400 Body weight 108.86 kg [facility] [employer] Work Phone: [facility] 01-04-2023 15:17-0400 Diastolic blood pressure 68 mm[Hg] [facility] [employer] Work Phone: [facility] 01-04-2023 15:17-0400 Heart rate 97 /min [facility] [employer] Work Phone: [facility] 01-04-2023 15:17-0400 Respiratory rate 18 /min [facility] [employer] Work Phone: [facility] 01-04-2023 15:17-0400 SaO2% (BldA) [Mass fraction] 96 % [facility] [employer] Work Phone: [facility] 01-04-2023 15:17-0400 Systolic blood pressure 148 mm[Hg] [facility] [employer] Work Phone: [facility] 01-02-2023 16:07-0400 Body temperature 97.88 [degF] Nikhil Tubbs [facility] 01-02-2023 16:07-0400 Diastolic blood pressure 84 mm[Hg] Nikhil Tubbs [facility] 01-02-2023 16:07-0400 Heart rate 67 /min Nikhil Tubbs [facility] 01-02-2023 16:07-0400 Respiratory rate 18 /min Nikhil Tubbs [facility] 01-02-2023 16:07-0400 SaO2% (BldA) [Mass fraction] 93 % Nikhil Tubbs [facility] 01-02-2023 16:07-0400 Systolic blood pressure 127 mm[Hg] Nikhil Tubbs [facility] 12-28-2022 14:48-0400 Heart rate 97 /min [facility] [employer] Work Phone: [facility] 12-28-2022 13:09-0400 Body height 160.02 cm [facility] [employer] Work Phone: [facility] 12-28-2022 13:09-0400 Body temperature 98.3 [degF] [facility] [employer] Work Phone: [facility] 12-28-2022 13:09-0400 Body weight 108.86 kg [facility] [employer] Work Phone: [facility] 12-28-2022 13:09-0400 Diastolic blood pressure 84 mm[Hg] [facility] [employer] Work Phone: [facility] 12-28-2022 13:09-0400 Respiratory rate 20 /min [facility] [employer] Work Phone: [facility] 12-28-2022 13:09-0400 SaO2% (BldA) [Mass fraction] 100 % [facility] [employer] Work Phone: [facility] 12-28-2022 13:09-0400 Systolic blood pressure 124 mm[Hg] [facility] [employer] Work Phone: [facility] 12-27-2022 08:40-0400 Body height 162.56 cm Rose Marie Shepherd Other [employer] Other 12-27-2022 08:40-0400 Body mass index (BMI) [Ratio] 42.05 kg/m2 Rose Marie Shepherd Other [facility] [employer] Other 12-27-2022 08:40-0400 Body weight 111.13 kg Rose Maire Shepherd Other [facility] [employer] Other 12-26-2022 16:28-0400 Body temperature 98.06 [degF] [facility] 12-26-2022 16:28-0400 Diastolic blood pressure 63 mm[Hg] [facility] 12-26-2022 16:28-0400 Heart rate 74 /min [facility] 12-26-2022 16:28-0400 Respiratory rate 18 /min [facility] 12-26-2022 16:28-0400 SaO2% (BldA) [Mass fraction] 98 % [facility] 12-26-2022 16:28-0400 Systolic blood pressure 142 mm[Hg] [facility] 12-26-2022 13:15-0400 Body height 162.56 cm Glen Garza Other [facility] [employer] Other 12-26-2022 13:15-0400 Body mass index (BMI) [Ratio] 42.74 kg/m2 Glen Garza Other [employer] [facility] [employer] Other 12-26-2022 13:15-0400 Body weight 112.95 kg Glen Garza Other [employer] [facility] [employer] Other 12-26-2022 13:15-0400 Diastolic blood pressure 80 mm[Hg] Glen Garza Other [employer] Other 12-26-2022 13:15-0400 SaO2% (BldA) [Mass fraction] 98 % Glen Garza Other [facility] [employer] Other 12-26-2022 13:15-0400 Systolic blood pressure 126 mm[Hg] Glen Garza Other [facility] [employer] Other 12-24-2022 12:28-0400 Body height 160.02 cm Services [email or web address] [facility] Work Phone: [facility] 12-24-2022 12:28-0400 Body temperature 97.8 [degF] [facility] [employer] Work Phone: [facility] 12-24-2022 12:28-0400 Body weight 114 kg [facility] [employer] Work Phone: [facility] 12-24-2022 12:28-0400 Diastolic blood pressure 78 mm[Hg] [facility] [employer] Work Phone: [facility] 12-24-2022 12:28-0400 Heart rate 82 /min [facility] [employer] Work Phone: [facility] 12-24-2022 12:28-0400 Respiratory rate 20 /min [facility] [employer] Work Phone: [facility] 12-24-2022 12:28-0400 SaO2% (BldA) [Mass fraction] 100 % [facility] [employer] Work Phone: [facility] 12-24-2022 12:28-0400 Systolic blood pressure 135 mm[Hg] [facility] [employer] Work Phone: [facility] 12-23-2022 16:55-0400 Body temperature 97.7 [degF] Nikhil Tubbs [facility] 12-23-2022 16:55-0400 Diastolic blood pressure 80 mm[Hg] Nikhil Tubbs [facility] 12-23-2022 16:55-0400 Heart rate 81 /min Nikhil Tubbs [facility] 12-23-2022 16:55-0400 Respiratory rate 20 /min Nikhil Tubbs [facility] 12-23-2022 16:55-0400 SaO2% (BldA) [Mass fraction] 98 % Nikhil Tubbs [facility] 12-23-2022 16:55-0400 Systolic blood pressure 123 mm[Hg] Nikhil Tubbs [facility] 12-21-2022 16:11-0400 Body height 160.02 cm [facility] [email or web address] [facility] Work Phone: [facility] 12-21-2022 16:11-0400 Body weight 112 kg [facility] [email or web address] [facility] Work Phone: [facility] 12-21-2022 16:10-0400 Body temperature 97.8 [degF] [facility] Work Phone: [facility] 12-21-2022 16:10-0400 Diastolic blood pressure 78 mm[Hg] [facility] Work Phone: [facility] 12-21-2022 16:10-0400 Heart rate 87 /min [facility] [email or web address] [facility] Work Phone: [facility] 12-21-2022 16:10-0400 Respiratory rate 16 /min [facility] [employer] Work Phone: [facility] 12-21-2022 16:10-0400 SaO2% (BldA) [Mass fraction] 97 % [facility] Work Phone: [facility] 12-21-2022 16:10-0400 Systolic blood pressure 139 mm[Hg] [facility] [email or web address] [facility] Work Phone: [facility] 12-18-2022 12:25-0400 Body temperature 98.06 [degF] Jorge Mcintosh [facility] 12-18-2022 12:25-0400 Diastolic blood pressure 84 mm[Hg] Jorge Mcintosh [facility] 12-18-2022 12:25-0400 Heart rate 77 /min Jorge Mcintosh [facility] 12-18-2022 12:25-0400 Respiratory rate 18 /min Jorge Mcintosh [facility] 12-18-2022 12:25-0400 SaO2% (BldA) [Mass fraction] 98 % Jorge Mcintosh [facility] 12-18-2022 12:25-0400 Systolic blood pressure 131 mm[Hg] Jorge Mcintosh [facility] 12-14-2022 15:12-0400 Body height 160.02 cm [facility] [employer] Work Phone: [facility] 12-14-2022 15:12-0400 Body temperature 98.1 [degF] [facility] Work Phone: [facility] 12-14-2022 15:12-0400 Body weight 108.86 kg [facility] Work Phone: [facility] 12-14-2022 15:12-0400 Diastolic blood pressure 73 mm[Hg] [facility] Work Phone: [facility] 12-14-2022 15:12-0400 Heart rate 93 /min [facility] Work Phone: [facility] 12-14-2022 15:12-0400 Respiratory rate 20 /min [facility] Work Phone: [facility] 12-14-2022 15:12-0400 SaO2% (BldA) [Mass fraction] 97 % [facility] Work Phone: [facility] 12-14-2022 15:12-0400 Systolic blood pressure 132 mm[Hg] [facility] [employer] Work Phone: [facility] 12-13-2022 18:33-0400 Diastolic blood pressure 68 mm[Hg] Nikhil Tubbs [facility] 12-13-2022 18:33-0400 Heart rate 61 /min Nikhil Arley [facility] 12-13-2022 18:33-0400 Mean blood pressure 95 mm[Hg] Nikhil Arley [facility] 12-13-2022 18:33-0400 SaO2% (BldA) [Mass fraction] 97 % Nikhil Arley [facility] 12-13-2022 18:33-0400 Systolic blood pressure 149 mm[Hg] Nikhil Tubbs [facility] 12-13-2022 18:13-0400 Diastolic blood pressure 63 mm[Hg] Nikhil Tubbs [facility] 12-13-2022 18:13-0400 Heart rate 73 /min Nikhil Tubbs [facility] 12-13-2022 18:13-0400 Mean blood pressure 86 mm[Hg] Nikhil Tubbs [facility] 12-13-2022 18:13-0400 Respiratory rate 20 /min Nikhil Tubbs [facility] 12-13-2022 18:13-0400 SaO2% (BldA) [Mass fraction] 98 % Nikhil Tubbs [facility] 12-13-2022 18:13-0400 Systolic blood pressure 131 mm[Hg] Nikhil Arley [facility] 12-13-2022 17:22-0400 Body temperature 98.06 [degF] Nikhiljaiden Tubbs [facility] 12-13-2022 17:22-0400 Diastolic blood pressure 61 mm[Hg] Nikhil Tubbs [facility] 12-13-2022 17:22-0400 Heart rate 63 /min Nikhil Arley [facility] 12-13-2022 17:22-0400 Respiratory rate 22 /min Nikhil Arley [facility] 12-13-2022 17:22-0400 SaO2% (BldA) [Mass fraction] 98 % Nikhil Arley [facility] 12-13-2022 17:22-0400 Systolic blood pressure 147 mm[Hg] Nikhil Arlye [facility] 12-13-2022 00:15-0400 Diastolic blood pressure 56 mm[Hg] Kaylinn Dokken [facility] 12-13-2022 00:15-0400 Heart rate 65 /min Kaylinn Dokken [facility] 12-13-2022 00:15-0400 Mean blood pressure 77 mm[Hg] Kaylinn Dokken [facility] 12-13-2022 00:15-0400 Respiratory rate 16 /min Kaylinn Dokken [facility] 12-13-2022 00:15-0400 SaO2% (BldA) [Mass fraction] 96 % Kaylinn Dokken [facility] 12-13-2022 00:15-0400 Systolic blood pressure 120 mm[Hg] Kaylinn Dokken [facility] 12-12-2022 23:39-0400 Diastolic blood pressure 47 mm[Hg] Kaylinn Dokken [facility] 12-12-2022 23:39-0400 Heart rate 70 /min Kaylinn Dokken [facility] 12-12-2022 23:39-0400 Mean blood pressure 77 mm[Hg] Kaylinn Dokken [facility] 12-12-2022 23:39-0400 Respiratory rate 25 /min Kaylinn Dokken [facility] 12-12-2022 23:39-0400 SaO2% (BldA) [Mass fraction] 95 % Kaylinn Dokken [facility] 12-12-2022 23:39-0400 Systolic blood pressure 136 mm[Hg] Kaylinn Dokken [facility] 12-12-2022 22:59-0400 Diastolic blood pressure 72 mm[Hg] Kaylinn Dokken [facility] 12-12-2022 22:59-0400 Heart rate 69 /min Kaylinn Dokken [facility] 12-12-2022 22:59-0400 Mean blood pressure 96 mm[Hg] Kaylinn Dokken [facility] 12-12-2022 22:59-0400 Respiratory rate 18 /min Kaylinn Dokken [facility] 12-12-2022 22:59-0400 SaO2% (BldA) [Mass fraction] 95 % Kaylinn Dokken [facility] 12-12-2022 22:59-0400 Systolic blood pressure 143 mm[Hg] Kaylinn Dokken [facility] 12-12-2022 22:04-0400 Respiratory rate 18 /min Kaylinn Dokken [facility] 12-12-2022 20:58-0400 Body temperature 98.24 [degF] Elisa Sánchez [facility] 12-12-2022 20:58-0400 Heart rate 79 /min Elisa Sánchez [facility] 12-12-2022 20:58-0400 Respiratory rate 18 /min Elisa Sánchez [facility] 12-12-2022 10:45-0400 Diastolic blood pressure 75 mm[Hg] [facility] Work Phone: [facility] 12-12-2022 10:45-0400 Heart rate 84 /min [facility] Work Phone: [facility] 12-12-2022 10:45-0400 Respiratory rate 16 /min [facility] Work Phone: [facility] 12-12-2022 10:45-0400 SaO2% (BldA) [Mass fraction] 100 % [facility] Work Phone: [facility] 12-12-2022 10:45-0400 Systolic blood pressure 127 mm[Hg] [facility] Work Phone: [facility] 12-12-2022 09:01-0400 Body height 162.56 cm [facility] Work Phone: [facility] 12-12-2022 09:01-0400 Body weight 112.03 kg [facility] Work Phone: [facility] 12-11-2022 17:19-0400 Diastolic blood pressure 71 mm[Hg] [facility] Work Phone: [facility] 12-11-2022 17:19-0400 Heart rate 70 /min [facility] Work Phone: [facility] 12-11-2022 17:19-0400 Respiratory rate 20 /min [facility] Work Phone: [facility] 12-11-2022 17:19-0400 SaO2% (BldA) [Mass fraction] 97 % [facility] Work Phone: [facility] 12-11-2022 17:19-0400 Systolic blood pressure 131 mm[Hg] [facility] Work Phone: [facility] 12-11-2022 14:58-0400 Body height 160.02 cm [facility] Work Phone: [facility] 12-11-2022 14:58-0400 Body temperature 98.7 [degF] [facility] Work Phone: [facility] 12-11-2022 14:58-0400 Body weight 108.86 kg [facility] Work Phone: [facility] 12-10-2022 17:46-0400 Body height 160.02 cm [facility] Work Phone: [facility] 12-10-2022 17:46-0400 Body temperature 98.2 [degF] [facility] Work Phone: [facility] 12-10-2022 17:46-0400 Body weight 108.86 kg [facility] Work Phone: [facility] 12-10-2022 17:46-0400 Diastolic blood pressure 90 mm[Hg] [facility] Work Phone: [facility] 12-10-2022 17:46-0400 Heart rate 97 /min [facility] Work Phone: [facility] 12-10-2022 17:46-0400 Respiratory rate 15 /min [facility] Work Phone: [facility] 12-10-2022 17:46-0400 SaO2% (BldA) [Mass fraction] 99 % [facility] Work Phone: [facility] 12-10-2022 17:46-0400 Systolic blood pressure 135 mm[Hg] [facility] Work Phone: [facility] 12-09-2022 16:38-0400 Body height 160.02 cm [facility] Work Phone: [facility] 12-09-2022 16:38-0400 Body temperature 97.7 [degF] [facility] Work Phone: [facility] 12-09-2022 16:38-0400 Body weight 104.32 kg [facility] Work Phone: [facility] 12-09-2022 16:38-0400 Diastolic blood pressure 86 mm[Hg] [facility] Work Phone: [facility] 12-09-2022 16:38-0400 Heart rate 90 /min Services [facility] [employer] Work Phone: [facility] 12-09-2022 16:38-0400 Respiratory rate 20 /min Services [facility] [employer] Work Phone: [facility] 12-09-2022 16:38-0400 SaO2% (BldA) [Mass fraction] 98 % Services [facility] [employer] Work Phone: [facility] 12-09-2022 16:38-0400 Systolic blood pressure 125 mm[Hg] Services [facility] [employer] Work Phone: [facility] 12-07-2022 18:54-0400 Heart rate 70 /min Chandana Avery [facility] 12-07-2022 18:54-0400 Respiratory rate 16 /min Chandana Avery [facility] 12-07-2022 18:54-0400 SaO2% (BldA) [Mass fraction] 99 % Chandana Avery [facility] 12-07-2022 16:49-0400 Body temperature 98.78 [degF] Chandana Avery [facility] 12-07-2022 16:49-0400 Diastolic blood pressure 79 mm[Hg] Chandana Avery [facility] 12-07-2022 16:49-0400 Heart rate 84 /min Chandana Varela [facility] 12-07-2022 16:49-0400 Respiratory rate 18 /min Chandana Varela [facility] 12-07-2022 16:49-0400 SaO2% (BldA) [Mass fraction] 98 % Chandana Varela [facility] 12-07-2022 16:49-0400 Systolic blood pressure 116 mm[Hg] Chandana Varela [facility] 12-07-2022 10:20-0400 Body height 160.02 cm [facility] [email or web address] [facility] Work Phone: [facility] 12-07-2022 10:20-0400 Body temperature 97.6 [degF] Services [facility] Work Phone: [facility] 12-07-2022 10:20-0400 Body weight 110.1 kg Services [email or web address] [facility] Work Phone: [facility] 12-07-2022 10:20-0400 Diastolic blood pressure 82 mm[Hg] Services [facility] Work Phone: [facility] 12-07-2022 10:20-0400 Heart rate 98 /min Services [facility] Work Phone: [facility] 12-07-2022 10:20-0400 Respiratory rate 22 /min Services [facility] Work Phone: [facility] 12-07-2022 10:20-0400 SaO2% (BldA) [Mass fraction] 98 % Services [employer] Work Phone: [facility] 12-07-2022 10:20-0400 Systolic blood pressure 139 mm[Hg] Services [employer] Work Phone: [facility] 12-04-2022 20:24-0400 Body temperature 98.01 [degF] Allyson Griffiths DO Work Phone: [place] [id number] 20:24-0400 Diastolic blood pressure 74 mm[Hg] Allyson Griffiths DO Work Phone: [facility] [employer] 12-04-2022 20:24-0400 Heart rate 70 /min Allyson Griffiths DO Work Phone: [facility] 12-04-2022 20:24-0400 Respiratory rate 18 /min Allyson Griffiths DO Work Phone: [facility] 12-04-2022 20:24-0400 SaO2% (BldA) [Mass fraction] 98 % Allyson Griffiths DO Work Phone: [facility] 12-04-2022 20:24-0400 Systolic blood pressure 127 mm[Hg] Allyson Griffiths DO Work Phone: [facility] 12-04-2022 19:35-0400 Body height 160 cm Allyson Griffiths DO Work Phone: [facility] 12-04-2022 19:35-0400 Body mass index (BMI) [Ratio] 42.16 kg/m2 Allyson Griffiths DO Work Phone: [facility] 12-04-2022 19:35-0400 Body weight 107.96 kg Allyson Griffiths DO Work Phone: [facility] 11-29-2022 16:15-0400 Body temperature 97.9 [degF] Services [employer] Work Phone: [facility] 11-29-2022 16:15-0400 Diastolic blood pressure 86 mm[Hg] Services [employer] Work Phone: [facility] 11-29-2022 16:15-0400 Heart rate 86 /min Services [employer] Work Phone: [facility] 11-29-2022 16:15-0400 Respiratory rate 18 /min Services [employer] Work Phone: [facility] 11-29-2022 16:15-0400 SaO2% (BldA) [Mass fraction] 98 % Services [employer] Work Phone: [facility] 11-29-2022 16:15-0400 Systolic blood pressure 113 mm[Hg] [facility] Work Phone: [facility] 11-29-2022 15:27-0400 Body height 160.02 cm [facility] Work Phone: [facility] 11-29-2022 15:27-0400 Body weight 108.9 kg [facility] Work Phone: [facility] 11-28-2022 10:51-0400 Diastolic blood pressure 95 mm[Hg] [facility] Work Phone: [facility] 11-28-2022 10:51-0400 Heart rate 84 /min [facility] Work Phone: [facility] 11-28-2022 10:51-0400 Respiratory rate 16 /min [facility] Work Phone: [facility] 11-28-2022 10:51-0400 SaO2% (BldA) [Mass fraction] 98 % Services [facility] Work Phone: [facility] 11-28-2022 10:51-0400 Systolic blood pressure 122 mm[Hg] Services [facility] Work Phone: [facility] 11-28-2022 10:11-0400 Inhaled oxygen flow rate 3 L/min [facility] Work Phone: [facility] 11-28-2022 08:54-0400 Body height 160.02 cm Services [facility] Work Phone: [facility] 11-28-2022 08:54-0400 Body temperature 97.9 [degF] Services [facility] Work Phone: [facility] 11-28-2022 08:54-0400 Body weight 108.86 kg Services [facility] Work Phone: [facility] 11-19-2022 10:30-0400 Body height 162.56 cm Glen Garza Other [employer] Other 11-19-2022 10:30-0400 Body mass index (BMI) [Ratio] 42.39 kg/m2 Glen Garza Other [employer] Other 11-19-2022 10:30-0400 Body weight 112.04 kg Glen Garza Other [employer] Other 11-19-2022 10:30-0400 Diastolic blood pressure 70 mm[Hg] Glen Garza Other [employer] Other 11-19-2022 10:30-0400 SaO2% (BldA) [Mass fraction] 97 % Glen Garza Other [employer] Other 11-19-2022 10:30-0400 Systolic blood pressure 102 mm[Hg] Glen Garza Other [employer] Other 11-18-2022 12:35-0400 Body height 160.02 cm [facility] Work Phone: [facility] 11-18-2022 12:35-0400 Body temperature 98.6 [degF] Services [facility] Work Phone: [facility] 11-18-2022 12:35-0400 Body weight 110.4 kg Services [facility] Work Phone: [facility] 11-18-2022 12:35-0400 Diastolic blood pressure 84 mm[Hg] Services [facility] Work Phone: [facility] 11-18-2022 12:35-0400 Heart rate 99 /min [facility] Work Phone: [facility] 11-18-2022 12:35-0400 Respiratory rate 20 /min [facility] Work Phone: [facility] 11-18-2022 12:35-0400 SaO2% (BldA) [Mass fraction] 98 % Services [facility] Work Phone: [facility] 11-18-2022 12:35-0400 Systolic blood pressure 142 mm[Hg] Services [facility] Work Phone: [facility] 11-16-2022 23:39-0400 Body height 160.02 cm Services [facility] Work Phone: [facility] 11-16-2022 23:39-0400 Body temperature 97.5 [degF] Services [facility] Work Phone: [facility] 11-16-2022 23:39-0400 Body weight 110 kg Services [facility] Work Phone: [facility] 11-16-2022 23:39-0400 Diastolic blood pressure 64 mm[Hg] Services [facility] Work Phone: [facility] 11-16-2022 23:39-0400 Heart rate 85 /min [facility] Work Phone: [facility] 11-16-2022 23:39-0400 Respiratory rate 18 /min Services [facility] Work Phone: [facility] 11-16-2022 23:39-0400 SaO2% (BldA) [Mass fraction] 96 % Services [facility] Work Phone: [facility] 11-16-2022 23:39-0400 Systolic blood pressure 140 mm[Hg] Services [facility] Work Phone: [facility] 11-15-2022 18:19-0400 Body height 160.02 cm Services [facility] Work Phone: [facility] 11-15-2022 18:19-0400 Body temperature 97.8 [degF] Services [facility] Work Phone: [facility] 11-15-2022 18:19-0400 Body weight 111 kg Services [facility] Work Phone: [facility] 11-15-2022 18:19-0400 Diastolic blood pressure 76 mm[Hg] Services [facility] Work Phone: [facility] 11-15-2022 18:19-0400 Heart rate 96 /min [facility] Work Phone: [facility] 11-15-2022 18:19-0400 Respiratory rate 22 /min [facility] Work Phone: [facility] 11-15-2022 18:19-0400 SaO2% (BldA) [Mass fraction] 97 % Services [facility] Work Phone: [facility] 11-15-2022 18:19-0400 Systolic blood pressure 133 mm[Hg] Services [facility] Work Phone: [facility] 11-12-2022 21:47-0400 Body height 160.02 cm Services [facility] Work Phone: [facility] 11-12-2022 21:47-0400 Body temperature 98 [degF] Services [facility] Work Phone: [facility] 11-12-2022 21:47-0400 Body weight 108.86 kg Services [facility] Work Phone: [facility] 11-12-2022 21:47-0400 Diastolic blood pressure 81 mm[Hg] Services [facility] Work Phone: [facility] 11-12-2022 21:47-0400 Heart rate 81 /min [facility] Work Phone: [facility] 11-12-2022 21:47-0400 Respiratory rate 20 /min [facility] Work Phone: [facility] 11-12-2022 21:47-0400 SaO2% (BldA) [Mass fraction] 96 % Services [facility] Work Phone: [facility] 11-12-2022 21:47-0400 Systolic blood pressure 142 mm[Hg] [facility] Work Phone: [facility] 11-11-2022 15:39-0400 Body height 160.02 cm Services [facility] Work Phone: [facility] 11-11-2022 15:39-0400 Body temperature 97.6 [degF] Services [facility] Work Phone: [facility] 11-11-2022 15:39-0400 Body weight 109.45 kg [facility] Work Phone: [facility] 11-11-2022 15:39-0400 Diastolic blood pressure 109 mm[Hg] [facility] Work Phone: [facility] 11-11-2022 15:39-0400 Heart rate 105 /min [facility] Work Phone: [facility] 11-11-2022 15:39-0400 Respiratory rate 20 /min [facility] Work Phone: [facility] 11-11-2022 15:39-0400 SaO2% (BldA) [Mass fraction] 96 % Services [facility] Work Phone: [facility] 11-11-2022 15:39-0400 Systolic blood pressure 153 mm[Hg] Services [facility] Work Phone: [facility] 11-08-2022 09:05-0400 Body height 160.02 cm Services [facility] Work Phone: [facility] 11-08-2022 09:05-0400 Body temperature 97.7 [degF] Services [facility] Work Phone: [facility] 11-08-2022 09:05-0400 Body weight 108.86 kg Services [facility] Work Phone: [facility] 11-08-2022 09:05-0400 Diastolic blood pressure 76 mm[Hg] Services [facility] Work Phone: [facility] 11-08-2022 09:05-0400 Heart rate 95 /min [facility] Work Phone: [facility] 11-08-2022 09:05-0400 Respiratory rate 18 /min [facility] Work Phone: [facility] 11-08-2022 09:05-0400 SaO2% (BldA) [Mass fraction] 96 % Services [facility] Work Phone: [facility] 11-08-2022 09:05-0400 Systolic blood pressure 134 mm[Hg] Services [facility] Work Phone: [facility] 11-06-2022 09:00-0400 Body height 162.56 cm Rose Marie Shepherd Other [employer] [facility] [employer] Other 11-06-2022 09:00-0400 Body mass index (BMI) [Ratio] 41.36 kg/m2 Rose Marie Shepherd Other [employer] Other 11-06-2022 09:00-0400 Body weight 109.32 kg Rose Marie Shepherd Other [employer] Other 11-06-2022 09:00-0400 Diastolic blood pressure 76 mm[Hg] Rose Marie Shepherd Other [employer] Other 11-06-2022 09:00-0400 Systolic blood pressure 136 mm[Hg] Rose Marie Shepherd Other [employer] Other 11-01-2022 20:46-0400 Body height 160.02 cm [email or web address] [facility] Work Phone: [facility] 11-01-2022 20:46-0400 Body temperature 97.8 [degF] Services [facility] Work Phone: [facility] 11-01-2022 20:46-0400 Body weight 109.76 kg Services [email or web address] [facility] Work Phone: [facility] 11-01-2022 20:46-0400 Diastolic blood pressure 92 mm[Hg] Services [facility] Work Phone: [facility] 11-01-2022 20:46-0400 Heart rate 90 /min [facility] Work Phone: [facility] 11-01-2022 20:46-0400 Respiratory rate 12 /min [facility] Work Phone: [facility] 11-01-2022 20:46-0400 SaO2% (BldA) [Mass fraction] 97 % Services [facility] Work Phone: [facility] 11-01-2022 20:46-0400 Systolic blood pressure 138 mm[Hg] Services [facility] Work Phone: [facility] 10-31-2022 09:05-0400 Body height 160.02 cm Services [facility] Work Phone: [facility] 10-31-2022 09:05-0400 Body weight 108.86 kg [facility] Work Phone: [facility] 10-25-2022 21:56-0400 Body height 160.02 cm [facility] Work Phone: [facility] 10-25-2022 21:56-0400 Body temperature 98.1 [degF] Services [facility] Work Phone: [facility] 10-25-2022 21:56-0400 Body weight 104.32 kg [facility] Work Phone: [facility] 10-25-2022 21:56-0400 Diastolic blood pressure 77 mm[Hg] Services [facility] Work Phone: [facility] 10-25-2022 21:56-0400 Heart rate 90 /min [facility] Work Phone: [facility] 10-25-2022 21:56-0400 Respiratory rate 18 /min [facility] Work Phone: [facility] 10-25-2022 21:56-0400 SaO2% (BldA) [Mass fraction] 96 % Services [facility] Work Phone: [facility] 10-25-2022 21:56-0400 Systolic blood pressure 127 mm[Hg] Services [facility] Work Phone: [facility] 10-23-2022 12:21-0400 Body temperature 97.6 [degF] [facility] Work Phone: [facility] 10-23-2022 12:20-0400 Body height 160.02 cm [facility] Work Phone: [facility] 10-23-2022 12:20-0400 Body weight 108.86 kg [facility] Work Phone: [facility] 10-23-2022 12:20-0400 Diastolic blood pressure 89 mm[Hg] [facility] Work Phone: [facility] 10-23-2022 12:20-0400 Heart rate 87 /min [facility] Work Phone: [facility] 10-23-2022 12:20-0400 Respiratory rate 20 /min [facility] Work Phone: [facility] 10-23-2022 12:20-0400 SaO2% (BldA) [Mass fraction] 97 % [facility] Work Phone: [facility] 10-23-2022 12:20-0400 Systolic blood pressure 133 mm[Hg] [facility] Work Phone: [facility] 10-16-2022 16:24-0400 Body height 160.02 cm [facility] Work Phone: [facility] 10-16-2022 16:24-0400 Body temperature 97.7 [degF] [facility] Work Phone: [facility] 10-16-2022 16:24-0400 Body weight 105.7 kg [facility] Work Phone: [facility] 10-16-2022 16:24-0400 Diastolic blood pressure 95 mm[Hg] [facility] Work Phone: [facility] 10-16-2022 16:24-0400 Heart rate 82 /min [facility] Work Phone: [facility] 10-16-2022 16:24-0400 Respiratory rate 16 /min [facility] Work Phone: [facility] 10-16-2022 16:24-0400 SaO2% (BldA) [Mass fraction] 96 % Services [facility] Work Phone: [facility] 10-16-2022 16:24-0400 Systolic blood pressure 122 mm[Hg] [facility] Work Phone: [facility] 10-11-2022 17:34-0400 Body height 160.02 cm [facility] Work Phone: [facility] 10-11-2022 17:34-0400 Body temperature 97.7 [degF] [facility] Work Phone: [facility] 10-11-2022 17:34-0400 Body weight 106.95 kg [facility] Work Phone: [facility] 10-11-2022 17:34-0400 Diastolic blood pressure 82 mm[Hg] [facility] Work Phone: [facility] 10-11-2022 17:34-0400 Heart rate 90 /min [facility] Work Phone: [facility] 10-11-2022 17:34-0400 Respiratory rate 18 /min [facility] Work Phone: [facility] 10-11-2022 17:34-0400 SaO2% (BldA) [Mass fraction] 97 % Services [facility] Work Phone: [facility] 10-11-2022 17:34-0400 Systolic blood pressure 126 mm[Hg] [facility] Work Phone: [facility] 10-07-2022 12:25-0400 Body height 162.56 cm [facility] Work Phone: [facility] 10-07-2022 12:25-0400 Body temperature 97.7 [degF] [facility] Work Phone: [facility] 10-07-2022 12:25-0400 Body weight 106 kg [facility] Work Phone: [facility] 10-07-2022 12:25-0400 Diastolic blood pressure 81 mm[Hg] [facility] Work Phone: [facility] 10-07-2022 12:25-0400 Heart rate 85 /min [facility] Work Phone: [facility] 10-07-2022 12:25-0400 Respiratory rate 20 /min [facility] Work Phone: [facility] 10-07-2022 12:25-0400 SaO2% (BldA) [Mass fraction] 97 % Services [facility] Work Phone: [facility] 10-07-2022 12:25-0400 Systolic blood pressure 154 mm[Hg] Services [facility] Work Phone: [facility] 10-04-2022 18:16-0400 Body height 162.56 cm [facility] Work Phone: [facility] 10-04-2022 18:16-0400 Body temperature 98.1 [degF] [facility] Work Phone: [facility] 10-04-2022 18:16-0400 Body weight 107.2 kg Services [facility] Work Phone: [facility] 10-04-2022 18:16-0400 Diastolic blood pressure 80 mm[Hg] [facility] Work Phone: [facility] 10-04-2022 18:16-0400 Heart rate 89 /min [facility] Work Phone: [facility] 10-04-2022 18:16-0400 Respiratory rate 18 /min [facility] Work Phone: [facility] 10-04-2022 18:16-0400 SaO2% (BldA) [Mass fraction] 96 % Services [facility] Work Phone: [facility] 10-04-2022 18:16-0400 Systolic blood pressure 165 mm[Hg] Services [facility] Work Phone: [facility] 10-02-2022 19:44-0400 Diastolic blood pressure 84 mm[Hg] [facility] Work Phone: [facility] 10-02-2022 19:44-0400 Heart rate 77 /min [facility] Work Phone: [facility] 10-02-2022 19:44-0400 Respiratory rate 20 /min [facility] Work Phone: [facility] 10-02-2022 19:44-0400 Systolic blood pressure 130 mm[Hg] Services [facility] Work Phone: [facility] 10-02-2022 18:59-0400 Body height 162.56 cm [facility] Work Phone: [facility] 10-02-2022 18:59-0400 Body temperature 98 [degF] Services [facility] Work Phone: [facility] 10-02-2022 18:59-0400 Body weight 108.8 kg Services [facility] Work Phone: [facility] 10-02-2022 18:59-0400 SaO2% (BldA) [Mass fraction] 96 % Services [facility] Work Phone: [facility] 09-28-2022 18:45-0400 Diastolic blood pressure 52 mm[Hg] Services [facility] Work Phone: [facility] 09-28-2022 18:45-0400 Heart rate 81 /min Services [facility] Work Phone: [facility] 09-28-2022 18:45-0400 Respiratory rate 20 /min Services [facility] Work Phone: [facility] 09-28-2022 18:45-0400 SaO2% (BldA) [Mass fraction] 97 % Services [facility] Work Phone: [facility] 09-28-2022 18:45-0400 Systolic blood pressure 139 mm[Hg] Services [facility] Work Phone: [facility] 09-28-2022 17:30-0400 Body height 160.02 cm Services [facility] Work Phone: [facility] 09-28-2022 17:30-0400 Body weight 108.86 kg Services [facility] Work Phone: [facility] 09-28-2022 17:28-0400 Body temperature 98.1 [degF] Services [facility] Work Phone: [facility] 09-26-2022 14:00-0400 Body height 162.56 cm Glen Garza Other [employer] [facility] [employer] Other 09-26-2022 14:00-0400 Diastolic blood pressure 70 mm[Hg] Glen Garza Other [employer] Other 09-26-2022 14:00-0400 SaO2% (BldA) [Mass fraction] 97 % Glen Garza Other [employer] Other 09-26-2022 14:00-0400 Systolic blood pressure 140 mm[Hg] Glen Garza Other [employer] Other 09-24-2022 17:58-0400 Body temperature 97.8 [degF] [facility] Work Phone: [facility] 09-24-2022 17:58-0400 Diastolic blood pressure 63 mm[Hg] [facility] Work Phone: [facility] 09-24-2022 17:58-0400 Heart rate 84 /min [facility] Work Phone: [facility] 09-24-2022 17:58-0400 Respiratory rate 20 /min [facility] Work Phone: [facility] 09-24-2022 17:58-0400 SaO2% (BldA) [Mass fraction] 97 % Services [facility] Work Phone: [facility] 09-24-2022 17:58-0400 Systolic blood pressure 129 mm[Hg] [facility] Work Phone: [facility] 09-24-2022 17:56-0400 Body height 160.02 cm Services [facility] Work Phone: [facility] 09-24-2022 17:56-0400 Body weight 107 kg [facility] Work Phone: [facility] 09-22-2022 22:23-0400 Body temperature 98.1 [degF] [facility] Work Phone: [facility] 09-22-2022 22:23-0400 Diastolic blood pressure 67 mm[Hg] [facility] Work Phone: [facility] 09-22-2022 22:23-0400 Heart rate 87 /min [facility] Work Phone: [facility] 09-22-2022 22:23-0400 Respiratory rate 24 /min [facility] Work Phone: [facility] 09-22-2022 22:23-0400 SaO2% (BldA) [Mass fraction] 96 % [facility] Work Phone: [facility] 09-22-2022 22:23-0400 Systolic blood pressure 126 mm[Hg] [facility] Work Phone: [facility] 09-22-2022 22:17-0400 Body height 160.02 cm [facility] Work Phone: [facility] 09-22-2022 22:17-0400 Body weight 104.32 kg [facility] Work Phone: [facility] 09-19-2022 12:24-0400 Diastolic blood pressure 70 mm[Hg] [facility] Work Phone: [facility] 09-19-2022 12:24-0400 Heart rate 63 /min [facility] Work Phone: [facility] 09-19-2022 12:24-0400 Respiratory rate 16 /min [facility] Work Phone: [facility] 09-19-2022 12:24-0400 SaO2% (BldA) [Mass fraction] 96 % Services [facility] Work Phone: [facility] 09-19-2022 12:24-0400 Systolic blood pressure 111 mm[Hg] [facility] Work Phone: [facility] 09-19-2022 11:49-0400 Inhaled oxygen flow rate 3 L/min [facility] Work Phone: [facility] 09-19-2022 10:59-0400 Body height 160.02 cm [facility] Work Phone: [facility] 09-19-2022 10:59-0400 Body weight 104.32 kg [facility] Work Phone: [facility] 09-18-2022 15:42-0400 Body height 160.02 cm [facility] Work Phone: [facility] 09-18-2022 15:42-0400 Body temperature 97.7 [degF] Services [facility] Work Phone: [facility] 09-18-2022 15:42-0400 Body weight 104.32 kg [facility] Work Phone: [facility] 09-18-2022 15:42-0400 Diastolic blood pressure 80 mm[Hg] [facility] Work Phone: [facility] 09-18-2022 15:42-0400 Heart rate 82 /min [facility] Work Phone: [facility] 09-18-2022 15:42-0400 Respiratory rate 18 /min [facility] Work Phone: [facility] 09-18-2022 15:42-0400 SaO2% (BldA) [Mass fraction] 97 % [facility] Work Phone: [facility] 09-18-2022 15:42-0400 Systolic blood pressure 140 mm[Hg] [facility] Work Phone: [facility] 09-11-2022 14:00-0400 Diastolic blood pressure 71 mm[Hg] [facility] Work Phone: [facility] 09-11-2022 14:00-0400 Heart rate 86 /min [facility] Work Phone: [facility] 09-11-2022 14:00-0400 Respiratory rate 20 /min [facility] Work Phone: [facility] 09-11-2022 14:00-0400 Systolic blood pressure 109 mm[Hg] [facility] Work Phone: [facility] 09-11-2022 12:59-0400 Body height 160.02 cm [facility] Work Phone: [facility] 09-11-2022 12:59-0400 Body temperature 98 [degF] [facility] Work Phone: [facility] 09-11-2022 12:59-0400 Body weight 104.32 kg [facility] Work Phone: [facility] 09-11-2022 12:59-0400 SaO2% (BldA) [Mass fraction] 98 % [facility] Work Phone: [facility] 09-05-2022 15:23-0400 Body height 160.02 cm [facility] Work Phone: [facility] 09-05-2022 15:23-0400 Body temperature 97.9 [degF] [facility] Work Phone: [facility] 09-05-2022 15:23-0400 Body weight 105.25 kg [facility] Work Phone: [facility] 09-05-2022 15:23-0400 Diastolic blood pressure 90 mm[Hg] Services [employer] Work Phone: [facility] 09-05-2022 15:23-0400 Heart rate 90 /min [facility] Company 09-05-2022 15:23-0400 Respiratory rate 20 /min Services [facility] [employer] Work Phone: [facility] 09-05-2022 15:23-0400 SaO2% (BldA) [Mass fraction] 98 % Services [employer] Work Phone: [facility] 09-05-2022 15:23-0400 Systolic blood pressure 151 mm[Hg] Services [employer] Work Phone: [facility] 09-04-2022 19:11-0400 Body temperature 98.42 [degF] Pedro Pablo [facility] 09-04-2022 19:11-0400 Diastolic blood pressure 104 mm[Hg] Pedro Pablo [facility] 09-04-2022 19:11-0400 Heart rate 101 /min Pedro Pablo [facility] 09-04-2022 19:11-0400 Respiratory rate 18 /min Pedro Pablo [facility] 09-04-2022 19:11-0400 SaO2% (BldA) [Mass fraction] 100 % Pedro Pablo [facility] 09-04-2022 19:11-0400 Systolic blood pressure 141 mm[Hg] Pedro Pablo [facility] 09-04-2022 10:00-0400 Body height 162.56 cm Glen Garza Other [facility] [employer] Other 09-04-2022 10:00-0400 Body mass index (BMI) [Ratio] 40.16 kg/m2 Glen Garza Other [facility] [employer] Other 09-04-2022 10:00-0400 Body weight 106.14 kg Glen Garza Other [facility] [employer] Other 09-04-2022 10:00-0400 Diastolic blood pressure 70 mm[Hg] Glen Garza Other [facility] [employer] Other 09-04-2022 10:00-0400 SaO2% (BldA) [Mass fraction] 99 % Glen Garza Other [facility] [employer] Other 09-04-2022 10:00-0400 Systolic blood pressure 110 mm[Hg] Glen Garza Other [facility] [employer] Other 09-01-2022 15:00-0400 Body height 162.56 cm Services [email or web address] [facility] Work Phone: [facility] 09-01-2022 15:00-0400 Body temperature 97.7 [degF] Services [facility] Work Phone: [facility] 09-01-2022 15:00-0400 Body weight 104 kg Services [facility] Work Phone: [facility] 09-01-2022 15:00-0400 Diastolic blood pressure 73 mm[Hg] Services [email or web address] [facility] Work Phone: [facility] 09-01-2022 15:00-0400 Heart rate 96 /min Services [employer] Work Phone: [facility] 09-01-2022 15:00-0400 Respiratory rate 20 /min Services [facility] Work Phone: [facility] 09-01-2022 15:00-0400 SaO2% (BldA) [Mass fraction] 100 % Services [facility] Work Phone: [facility] 09-01-2022 15:00-0400 Systolic blood pressure 132 mm[Hg] Services [facility] Work Phone: [facility] 08-31-2022 20:05-0400 Body height 160.02 cm Services [facility] Work Phone: [facility] 08-31-2022 20:05-0400 Body temperature 97.8 [degF] Services [facility] Work Phone: [facility] 08-31-2022 20:05-0400 Body weight 103.7 kg Services [facility] Work Phone: [facility] 08-31-2022 20:05-0400 Diastolic blood pressure 76 mm[Hg] Services [facility] Work Phone: [facility] 08-31-2022 20:05-0400 Heart rate 94 /min Services [facility] Work Phone: [facility] 08-31-2022 20:05-0400 Respiratory rate 18 /min Services [facility] Work Phone: [facility] 08-31-2022 20:05-0400 SaO2% (BldA) [Mass fraction] 98 % Services [facility] Work Phone: [facility] 08-31-2022 20:05-0400 Systolic blood pressure 134 mm[Hg] Services [facility] Work Phone: [facility] 08-26-2022 15:35-0400 Body height 160.02 cm Services [facility] Work Phone: [facility] 08-26-2022 15:35-0400 Body temperature 98.1 [degF] Services [facility] Work Phone: [facility] 08-26-2022 15:35-0400 Body weight 104.6 kg Services [facility] Work Phone: [facility] 08-26-2022 15:35-0400 Diastolic blood pressure 59 mm[Hg] Services [facility] Work Phone: [facility] 08-26-2022 15:35-0400 Heart rate 94 /min Services [facility] Work Phone: [facility] 08-26-2022 15:35-0400 Respiratory rate 18 /min Services [facility] Work Phone: [facility] 08-26-2022 15:35-0400 SaO2% (BldA) [Mass fraction] 99 % Services [facility] Work Phone: [facility] 08-26-2022 15:35-0400 Systolic blood pressure 119 mm[Hg] Services [email or web address] Work Phone: [facility] 08-21-2022 08:40-0400 Body height 162.56 cm Rose Marie Shepherd Other [employer] Other 08-21-2022 08:40-0400 Body mass index (BMI) [Ratio] 40.16 kg/m2 Rose Marie Shepherd Other [employer] Other 08-21-2022 08:40-0400 Body weight 106.14 kg Rose Marie Shepherd Other [employer] Other 08-21-2022 08:40-0400 Diastolic blood pressure 78 mm[Hg] Rose Marie Shepherd Other [employer] Other 08-21-2022 08:40-0400 Systolic blood pressure 132 mm[Hg] Rose Marie Shepherd Other [employer] Other 08-17-2022 00:19-0400 Diastolic blood pressure 62 mm[Hg] Services [facility] Work Phone: [facility] 08-17-2022 00:19-0400 Heart rate 75 /min Services [facility] Work Phone: [facility] 08-17-2022 00:19-0400 Respiratory rate 20 /min Services [facility] Work Phone: [facility] 08-17-2022 00:19-0400 SaO2% (BldA) [Mass fraction] 97 % Services [facility] Work Phone: [facility] 08-17-2022 00:19-0400 Systolic blood pressure 127 mm[Hg] Services [facility] Work Phone: [facility] 08-16-2022 21:20-0400 Body height 160.02 cm Services [facility] Work Phone: [facility] 08-16-2022 21:20-0400 Body temperature 97.9 [degF] Services [facility] Work Phone: [facility] 08-16-2022 21:20-0400 Body weight 104.32 kg Services [facility] Work Phone: [facility] 08-13-2022 17:20-0400 Body height 160.02 cm Services [facility] Work Phone: [facility] 08-13-2022 17:20-0400 Body temperature 97.8 [degF] Services [facility] Work Phone: [facility] 08-13-2022 17:20-0400 Body weight 102.85 kg Services [facility] Work Phone: [facility] 08-13-2022 17:20-0400 Diastolic blood pressure 81 mm[Hg] Services [facility] Work Phone: [facility] 08-13-2022 17:20-0400 Heart rate 92 /min Services [facility] Work Phone: [facility] 08-13-2022 17:20-0400 Respiratory rate 20 /min Services [facility] Work Phone: [facility] 08-13-2022 17:20-0400 SaO2% (BldA) [Mass fraction] 96 % Services [facility] Work Phone: [facility] 08-13-2022 17:20-0400 Systolic blood pressure 140 mm[Hg] Services [facility] Work Phone: [facility] 08-06-2022 17:12-0400 Body height 160.02 cm Services [facility] Work Phone: [facility] 08-06-2022 17:12-0400 Body temperature 97.7 [degF] Services [facility] Work Phone: [facility] 08-06-2022 17:12-0400 Body weight 103.3 kg Services [facility] Work Phone: [facility] 08-06-2022 17:12-0400 Diastolic blood pressure 76 mm[Hg] Services [facility] Work Phone: [facility] 08-06-2022 17:12-0400 Heart rate 78 /min Services [facility] Work Phone: [facility] 08-06-2022 17:12-0400 Respiratory rate 20 /min Services [facility] Work Phone: [facility] 08-06-2022 17:12-0400 SaO2% (BldA) [Mass fraction] 98 % Services [facility] Work Phone: [facility] 08-06-2022 17:12-0400 Systolic blood pressure 130 mm[Hg] Services [facility] Work Phone: [facility] 08-02-2022 21:20-0400 Body height 160.02 cm Services [facility] Work Phone: [facility] 08-02-2022 21:20-0400 Body temperature 97.6 [degF] Services [facility] Work Phone: [facility] 08-02-2022 21:20-0400 Body weight 104.55 kg Services [facility] Work Phone: [facility] 08-02-2022 21:20-0400 Diastolic blood pressure 84 mm[Hg] Services [facility] Work Phone: [facility] 08-02-2022 21:20-0400 Heart rate 74 /min Services [facility] Work Phone: [facility] 08-02-2022 21:20-0400 Respiratory rate 22 /min Services [facility] Work Phone: [facility] 08-02-2022 21:20-0400 SaO2% (BldA) [Mass fraction] 97 % Services [facility] Work Phone: [facility] 08-02-2022 21:20-0400 Systolic blood pressure 174 mm[Hg] Services [facility] Work Phone: [facility] 06-16-2022 12:24-0400 Body height 160.02 cm Services [facility] Work Phone: [facility] 06-16-2022 12:24-0400 Body temperature 97.5 [degF] Services [facility] Work Phone: [facility] 06-16-2022 12:24-0400 Body weight 104 kg Services [facility] Work Phone: [facility] 06-16-2022 12:24-0400 Diastolic blood pressure 68 mm[Hg] Services [facility] Work Phone: [facility] 06-16-2022 12:24-0400 Heart rate 69 /min Services [facility] Work Phone: [facility] 06-16-2022 12:24-0400 Respiratory rate 20 /min Services [facility] Work Phone: [facility] 06-16-2022 12:24-0400 SaO2% (BldA) [Mass fraction] 97 % Services [facility] Work Phone: [facility] 06-16-2022 12:24-0400 Systolic blood pressure 151 mm[Hg] Services [facility] Work Phone: [facility] 03-30-2022 13:10-0500 Diastolic blood pressure 60 mm[Hg] Services [facility] Work Phone: [facility] 03-30-2022 13:10-0500 Heart rate 79 /min Services [facility] Work Phone: [facility] 03-30-2022 13:10-0500 Respiratory rate 18 /min Services [facility] Work Phone: [facility] 03-30-2022 13:10-0500 SaO2% (BldA) [Mass fraction] 98 % Services [facility] Work Phone: [facility] 03-30-2022 13:10-0500 Systolic blood pressure 118 mm[Hg] Services [facility] Work Phone: [facility] 03-30-2022 10:09-0500 Body height 160.02 cm Services [facility] Work Phone: [facility] 03-30-2022 10:09-0500 Body temperature 98.3 [degF] Services [facility] Work Phone: [facility] 03-30-2022 10:09-0500 Body weight 107.95 kg Services [facility] Work Phone: [facility] 03-19-2022 18:13-0500 Diastolic blood pressure 64 mm[Hg] Services [facility] Work Phone: [facility] 03-19-2022 18:13-0500 Heart rate 51 /min Services [facility] Work Phone: [facility] 03-19-2022 18:13-0500 Respiratory rate 20 /min Services [facility] Work Phone: [facility] 03-19-2022 18:13-0500 SaO2% (BldA) [Mass fraction] 97 % Services [facility] Work Phone: [facility] 03-19-2022 18:13-0500 Systolic blood pressure 121 mm[Hg] Services [facility] Work Phone: [facility] 03-19-2022 14:37-0500 Body height 160.02 cm Services [facility] Work Phone: [facility] 03-19-2022 14:37-0500 Body temperature 97.5 [degF] Services [facility] Work Phone: [facility] 03-19-2022 14:37-0500 Body weight 108.25 kg Services [facility] Work Phone: [facility] 03-17-2022 18:14-0500 Diastolic blood pressure 79 mm[Hg] Services [facility] Work Phone: [facility] 03-17-2022 18:14-0500 Heart rate 79 /min Services [facility] Work Phone: [facility] 03-17-2022 18:14-0500 Respiratory rate 19 /min Services [facility] Work Phone: [facility] 03-17-2022 18:14-0500 SaO2% (BldA) [Mass fraction] 98 % Services [facility] Work Phone: [facility] 03-17-2022 18:14-0500 Systolic blood pressure 118 mm[Hg] Services [facility] Work Phone: [facility] 03-17-2022 14:45-0500 Body height 160.02 cm Services [facility] Work Phone: [facility] 03-17-2022 14:45-0500 Body temperature 97.9 [degF] Services [facility] Work Phone: [facility] 03-17-2022 14:45-0500 Body weight 108.85 kg Services [facility] Work Phone: [facility] 03-14-2022 19:09-0500 Diastolic blood pressure 61 mm[Hg] Services [facility] Work Phone: [facility] 03-14-2022 19:09-0500 Heart rate 61 /min Services [facility] Work Phone: [facility] 03-14-2022 19:09-0500 Respiratory rate 16 /min Services [facility] Work Phone: [facility] 03-14-2022 19:09-0500 SaO2% (BldA) [Mass fraction] 96 % Services [facility] Work Phone: [facility] 03-14-2022 19:09-0500 Systolic blood pressure 111 mm[Hg] Services [facility] Work Phone: [facility] 03-14-2022 15:23-0500 Body height 160.02 cm Services [facility] Work Phone: [facility] 03-14-2022 15:23-0500 Body temperature 97.4 [degF] Services [facility] Work Phone: [facility] 03-14-2022 15:23-0500 Body weight 108.3 kg Services [facility] Work Phone: [facility] 02-03-2022 21:30-0500 Body temperature 97.9 [degF] Services [facility] Work Phone: [facility] 02-03-2022 21:30-0500 Diastolic blood pressure 87 mm[Hg] Services [facility] Work Phone: [facility] 02-03-2022 21:30-0500 Heart rate 70 /min Services [facility] Work Phone: [facility] 02-03-2022 21:30-0500 Respiratory rate 16 /min Services [facility] Work Phone: [facility] 02-03-2022 21:30-0500 SaO2% (BldA) [Mass fraction] 99 % Services [facility] Work Phone: [facility] 02-03-2022 21:30-0500 Systolic blood pressure 142 mm[Hg] Services [facility] Work Phone: [facility] 02-03-2022 17:12-0500 Body height 163.83 cm Services [facility] Work Phone: [facility] 02-03-2022 17:12-0500 Body weight 110 kg Services [facility] Work Phone: [facility] 01-21-2022 20:16-0400 Body height 160.02 cm Services [facility] Work Phone: [facility] 01-21-2022 20:16-0400 Body temperature 98.2 [degF] Services [facility] Work Phone: [facility] 01-21-2022 20:16-0400 Body weight 111.25 kg Services [facility] Work Phone: [facility] 01-21-2022 20:16-0400 Diastolic blood pressure 77 mm[Hg] Services [facility] Work Phone: [facility] 01-21-2022 20:16-0400 Heart rate 107 /min Services [facility] Work Phone: [facility] 01-21-2022 20:16-0400 Respiratory rate 22 /min Services [facility] Work Phone: [facility] 01-21-2022 20:16-0400 SaO2% (BldA) [Mass fraction] 98 % Services [facility] Work Phone: [facility] 01-21-2022 20:16-0400 Systolic blood pressure 134 mm[Hg] Services [facility] Work Phone: [facility] 11-14-2021 00:54-0400 Diastolic blood pressure 70 mm[Hg] Services [facility] Work Phone: [facility] 11-14-2021 00:54-0400 Heart rate 81 /min Services [facility] Work Phone: [facility] 11-14-2021 00:54-0400 Respiratory rate 20 /min Services [facility] Work Phone: [facility] 11-14-2021 00:54-0400 SaO2% (BldA) [Mass fraction] 99 % Services [facility] Work Phone: [facility] 11-14-2021 00:54-0400 Systolic blood pressure 122 mm[Hg] Services [facility] Work Phone: [facility] 11-13-2021 18:29-0400 Body height 160.02 cm Services [facility] Work Phone: [facility] 11-13-2021 18:29-0400 Body temperature 97.6 [degF] Services [facility] Work Phone: [facility] 11-13-2021 18:29-0400 Body weight 108.86 kg Services [facility] Work Phone: [facility] 10-18-2021 20:30-0400 Body height 160.02 cm Services [facility] Work Phone: [facility] 10-18-2021 20:30-0400 Body temperature 98 [degF] Services [facility] Work Phone: [facility] 10-18-2021 20:30-0400 Body weight 109.6 kg Services [facility] Work Phone: [facility] 10-18-2021 20:30-0400 Diastolic blood pressure 89 mm[Hg] Services [facility] Work Phone: [facility] 10-18-2021 20:30-0400 Heart rate 87 /min Services [facility] Work Phone: [facility] 10-18-2021 20:30-0400 Respiratory rate 22 /min [facility] Work Phone: [facility] 10-18-2021 20:30-0400 SaO2% (BldA) [Mass fraction] 99 % Services [facility] Work Phone: [facility] 10-18-2021 20:30-0400 Systolic blood pressure 149 mm[Hg] Services [facility] Work Phone: [facility] 10-10-2021 01:28-0400 Diastolic blood pressure 71 mm[Hg] Services [facility] Work Phone: [facility] 10-10-2021 01:28-0400 Heart rate 70 /min [facility] Work Phone: [facility] 10-10-2021 01:28-0400 Respiratory rate 18 /min Services [facility] Work Phone: [facility] 10-10-2021 01:28-0400 SaO2% (BldA) [Mass fraction] 98 % Services [facility] Work Phone: [facility] 10-10-2021 01:28-0400 Systolic blood pressure 159 mm[Hg] Services [facility] Work Phone: [facility] 10-09-2021 20:44-0400 Body height 160.02 cm Services [facility] Work Phone: [facility] 10-09-2021 20:44-0400 Body mass index (BMI) [Ratio] 42.5 kg/m2 Services [facility] Work Phone: [facility] 10-09-2021 20:44-0400 Body temperature 98.2 [degF] Services [facility] Work Phone: [facility] 10-09-2021 20:44-0400 Body weight 108.86 kg Services [facility] Work Phone: [facility] 09-13-2021 18:42-0400 Heart rate 93 /min Services [facility] Work Phone: [facility] 09-13-2021 17:16-0400 Body height 160.02 cm [facility] Work Phone: [facility] 09-13-2021 17:16-0400 Body mass index (BMI) [Ratio] 42.7 kg/m2 Services [facility] Work Phone: [facility] 09-13-2021 17:16-0400 Body temperature 98.5 [degF] Services [facility] Work Phone: [facility] 09-13-2021 17:16-0400 Body weight 109.45 kg Services [facility] Work Phone: [facility] 09-13-2021 17:16-0400 Diastolic blood pressure 78 mm[Hg] Services [employer] Work Phone: [facility] 09-13-2021 17:16-0400 Respiratory rate 20 /min Services [facility] Work Phone: [facility] 09-13-2021 17:16-0400 SaO2% (BldA) [Mass fraction] 96 % Services [employer] Work Phone: [facility] 09-13-2021 17:16-0400 Systolic blood pressure 136 mm[Hg] Services [facility] Work Phone: [facility] 03-30-2021 10:30-0500 Body height 162.56 cm Avery Goodman Other [employer] Other Encounters Encounter Date Encounter Type Care Provider Facility Start: 10-31-2023 End: 11-01-2023 ambulatory [facility] Start: 10-30-2023 End: 10-31-2023 Emergency department patient visit Aaliyah Fischer DO Work Phone: [facility] Comment on above: Infection of superfi cial incisional surgical site after procedure, initial encounter (Primary Dx) Start: 10-30-2023 End: 10-30-2023 Emergency department patient visit Balbina Bryant [facility] Start: 10-26-2023 End: 10-26-2023 Emergency department patient visit Pedro Pablo Fletcher [facility] Start: 10-25-2023 End: 10-25-2023 ambulatory [facility] Start: 10-19-2023 End: 10-19-2023 Emergency department patient visit Services [employer] Work Phone: [facility] Work Phone: Start: 10-11-2023 End: 10-16-2023 Evaluation and management of inpatient NO ASSIGNED PCP GENERIC PROVIDER [facility] Start: 10-11-2023 Evaluation and management of inpatient ELKE A ELENA [facility] Start: 10-11-2023 End: 10-11-2023 ambulatory ELKE A ELENA [facility] Start: 10-05-2023 End: 10-06-2023 Emergency department patient visit NO ASSIGNED PCP GENERIC PROVIDER [facility] Start: 10-05-2023 End: 10-05-2023 Emergency department patient visit Services [facility] Work Phone: [facility] Work Phone: Start: 10-05-2023 End: 10-05-2023 Emergency department patient visit Cheyanne Rosas [facility] Facility:[facility] Start: 10-04-2023 End: 10-04-2023 Emergency department patient visit Jorge Mcintosh [facility] Start: 09-26-2023 End: 09-26-2023 Emergency department patient visit Cheyanne Rosas [facility] Facility:[facility] Start: 09-25-2023 End: 09-25-2023 Emergency department patient visit Alexute Sparks Annette [facility] Start: 09-21-2023 End: 09-21-2023 Emergency department patient visit Nikhil Tubbs [facility] Start: 09-20-2023 End: 09-20-2023 Emergency department patient visit Jorge Mcintosh [facility] Start: 09-19-2023 End: 09-19-2023 Emergency department patient visit NO ASSIGNED PCP GENERIC PROVIDER [facility] Start: 09-18-2023 ambulatory ELKE [facility] Start: 09-17-2023 End: 09-17-2023 ambulatory Dax Lira Facility:[facility] Start: 09-17-2023 End: 09-17-2023 Patient encounter procedure Dax Lira [facility] Start: 09-16-2023 End: 09-16-2023 Emergency department patient visit NO ASSIGNED PCP GENERIC PROVIDER [facility] Start: 09-16-2023 End: 09-16-2023 ambulatory NO ASSIGNED PCP GENERIC PROVIDER [facility] Start: 09-11-2023 End: 09-11-2023 ambulatory [facility] Ashia Ruiz Facility:[facility] Start: 09-11-2023 End: 09-11-2023 Patient encounter procedure Ashia Ruiz [facility] Start: 09-10-2023 End: 09-10-2023 Emergency department patient visit Benja Garcia DO Work Phone: [facility] Comment on above: Strain of lumbar reg ion, initial encounter (Primary Dx) Start: 09-09-2023 End: 09-09-2023 Emergency department patient visit Jorge Mcintosh [facility] Start: 09-08-2023 End: 09-08-2023 Emergency department patient visit Services [facility] Work Phone: [facility] Work Phone: Start: 09-06-2023 End: 09-06-2023 Emergency department patient visit Pedro Pablo Fletcher [facility] Start: 09-02-2023 End: 09-02-2023 Emergency department patient visit Jorge Arnaldo [facility] Start: 08-30-2023 End: 08-30-2023 Emergency department patient visit Nikhil Tubbs [facility] Start: 08-27-2023 End: 08-27-2023 ambulatory CHIRAG OVIEDO [facility] Start: 08-27-2023 End: 08-27-2023 Postop follow up visit related to original px Chirag Oviedo 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[facility] [place] Comment on above: Chronic back pain gr eater than 3 months duration (Primary Dx); Neuropathic pain Start: 08-21-2023 End: 08-21-2023 ambulatory ELKE ADAMS [facility] Start: 08-21-2023 End: 08-21-2023 Subsequent hospital visit by physician Elke Adams MD Work Phone: [facility] [place] Comment on above: Chronic back pain gr eater than 3 months duration (Primary Dx); Neuropathic pain; Continuous opioid dependence (Multi) Start: 08-17-2023 End: 08-17-2023 Emergency department patient visit Peter Rausch Adrian Facility:[facility] Start: 08-16-2023 End: 08-16-2023 Emergency department patient visit Physician Shankar Facility:[facility] Start: 08-15-2023 End: 08-16-2023 Emergency department patient visit Balbina Bryant [facility] Start: 08-14-2023 End: 08-14-2023 ambulatory Cheyanne Rosas Facility:[facility] Start: 08-14-2023 End: 08-14-2023 Pain Management Domenic Sher [facility] Start: 08-12-2023 End: 08-12-2023 Emergency department patient visit Elisa Sánchez [facility] Start: 08-09-2023 End: 08-10-2023 Emergency department patient visit KEKE PAYNE [facility] Start: 08-09-2023 End: 08-09-2023 Emergency department patient visit Keke Payne MD Work Phone: [facility] Start: 08-07-2023 End: 08-07-2023 ambulatory [facility] Ashia Ruiz Facility:[facility] Start: 08-07-2023 End: 08-07-2023 Patient encounter procedure Ashia Ruiz [facility] Start: 08-05-2023 End: 08-05-2023 Emergency department patient visit Pedro Pablo Fletcher [facility] Start: 08-02-2023 End: 08-02-2023 Emergency department patient visit Nikhil Tubbs [facility] Start: 08-02-2023 End: 08-02-2023 ambulatory ELKE Ellsworth [facility] Start: 08-02-2023 End: 08-02-2023 Encounter for other preprocedural examination BANNER Seng [facility] Start: 07-31-2023 End: 07-31-2023 Emergency department patient visit Balbina Starreduard [facility] Start: 07-26-2023 End: 07-26-2023 ambulatory SLIME SHERWOOD [facility] Start: 07-26-2023 End: 07-26-2023 Emergency department patient visit Jorge Mcintosh [facility] Start: 07-20-2023 End: 07-20-2023 Emergency department patient visit Nikhil Tubbs Facility:[facility] Start: 07-17-2023 ambulatory Jorge Mcintosh Facility:[facility] Start: 07-17-2023 End: 07-17-2023 ambulatory Cheyanne Rosas Facility:[facility] Start: 07-17-2023 End: 07-17-2023 Patient encounter procedure Cheyanne Rosas [facility] Start: 07-17-2023 End: 07-17-2023 Well adult monitoring check done Cheyanne Rosas [facility] Start: 07-15-2023 End: 07-15-2023 ambulatory XXXX NONE Facility:[facility] Start: 07-15-2023 End: 07-15-2023 Pain Management Dory Shepherd [facility] Start: 07-14-2023 End: 07-14-2023 Emergency department patient visit Nikhil Tubbs [facility] Start: 07-11-2023 ambulatory [facility] Facility: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 Start: 07-06-2023 End: 07-06-2023 Emergency department patient visit Balbina Finleyzander [facility] Start: 07-04-2023 End: 07-04-2023 Emergency department patient visit Services [facility] Work Phone: [facility] Work Phone: Start: 06-29-2023 End: 06-29-2023 Emergency department patient visit Nikhil Tubbs [facility] Start: 06-27-2023 End: 06-27-2023 Emergency department patient visit Nikhil Tubbs [facility] Start: 06-26-2023 End: 06-26-2023 Emergency department patient visit ELIZABETH Ferrell Work Phone: [facility] Work Phone: Start: 06-24-2023 End: 06-24-2023 Emergency department patient [facility] Start: 06-22-2023 End: 06-22-2023 ambulatory [facility] Facility:[facility] Start: 06-22-2023 End: 06-22-2023 Emergency department patient visit Nikhil Tubbs [facility] Start: 06-22-2023 End: 06-22-2023 ambulatory [facility] Facility:[facility] Start: 06-17-2023 End: 06-17-[address] [facility] Start: 06-15-2023 End: 06-15-2023 Emergency department [facility] Start: 06-15-2023 End: 06-15-2023 Emergency department patient visit NO ASSIGNED PCP GENERIC PROVIDER [facility] Comment on above: Chronic back pain, u nspecified back location, unspecified back pain laterality (Primary Dx) Start: 06-11-2023 End: 06-11-2023 Emergency department patient visit Elisa Sánchez [facility] Start: 06-08-2023 End: 06-08-2023 Emergency department patient visit ALLYSON GRIFFITHS [facility] Start: 06-08-2023 End: 06-08-2023 Emergency department patient visit Allyson Lucero Corey SLATER Work Phone: [facility] Start: 06-05-2023 End: 06-05-2023 ambulatory ELKE ADAMS [facility] Start: 06-05-2023 End: 06-05-2023 Office outpatient new 45 minutes Elke Adams MD Work Phone: [facility] Comment on above: Chronic back pain gr eater than 3 months duration (Primary Dx); Neuropathic pain Start: 06-03-2023 End: 06-03-2023 Emergency department patient visit Jorge Arnaldo [facility] Start: 06-01-2023 End: 06-01-2023 Emergency department patient visit ELIZABETH Ferrell Work Phone: [facility] Work Phone: Start: 05-31-2023 End: 05-31-2023 Emergency department patient visit Jorge Arnaldo [facility] Start: 05-26-2023 End: 05-26-2023 Emergency department patient visit Pedro Pablo Fletcher [facility] Start: 05-25-2023 End: 05-25-2023 Emergency department patient visit ELIZABETH Ferrell Work Phone: [facility] Work Phone: Start: 05-24-2023 End: 05-24-2023 Emergency department patient visit Nikhil Tubbs [facility] Start: 05-20-2023 End: 05-21-2023 ambulatory BELKIS Nguyen [facility] Ambulatory Start: 05-20-2023 End: 05-20-2023 Office outpatient new 45 minutes Belkis Hernandez DO Work Phone: [facility] Comment on above: [facility] arthritis (Prima ry Dx); Right wrist pain Start: 05-19-2023 End: 05-19-2023 Emergency department patient visit PHYSICIAN NO [facility] Work Phone: Start: 05-16-2023 End: 05-16-2023 Emergency department patient visit Nikhil Tubbs [facility] Start: 05-15-2023 End: 05-15-2023 ambulatory PHYSICIAN NO [facility] Work Phone: Start: 05-15-2023 End: 05-15-2023 Patient encounter procedure PHYSICIAN NO [facility] Work Phone: Start: 05-14-2023 End: 05-14-2023 Emergency department patient visit Jorge Mcintosh [facility] Start: 05-12-2023 End: 05-12-2023 Emergency department patient visit Nikhil Tubbs [facility] Start: 05-11-2023 End: 05-11-2023 Emergency department patient visit Jorge Mcintosh [facility] Start: 05-08-2023 End: 05-08-2023 Emergency department patient visit Balbina Bryant [facility] Start: 05-05-2023 End: 05-05-2023 Emergency department patient visit PHYSICIAN NO [facility] Work Phone: Start: 05-04-2023 End: 05-04-2023 Emergency department patient visit Pedro Pablo Fletcher Facility:[facility] Start: 05-03-2023 End: 05-03-2023 Emergency department patient visit ANTONIO Nguyen [facility] Start: 04-30-2023 End: 04-30-2023 Emergency department patient visit Jorge Mcintosh Facility:[facility] Start: 04-28-2023 End: 04-28-2023 Emergency department patient visit SAL MENA [facility] Start: 04-27-2023 End: 04-28-2023 Emergency department patient visit Sal Mena MD Work Phone: [facility] Start: 04-26-2023 End: 04-26-2023 Emergency department patient visit [facility] Brid[facility] Start: 04-22-2023 End: 04-22-2023 Emergency department patient visit Pedro Pablo Fletcher [facility] Start: 04-19-2023 End: 04-19-2023 ambulatory [facility] Start: 04-12-2023 End: 04-12-2023 Emergency department patient visit [facility] Work Phone: Start: 04-11-2023 End: 04-11-2023 Emergency department patient visit Balbina tSarreduard [facility] Start: 04-10-2023 End: 04-11-2023 Emergency department patient visit Pedro Pablo Fletcher [facility] Start: 04-08-2023 End: 04-08-2023 Emergency department patient visit Dory Castañeda PA-C Facility:[facility] Start: 04-05-2023 End: 04-05-2023 Emergency department patient visit Nikhil Tubbs [facility] Start: 04-02-2023 End: 04-02-2023 Emergency department patient visit Elisa Seng Gonzalo [facility] Start: 04-01-2023 End: 04-01-2023 Office consultation new/estab patient 60 min Chidi Yuen MD Work Phone: [facility] Comment on above: Continuous opioid de pendence (CMS/HCC) (Primary Dx); Chronic hepatitis C without hepatic coma (CMS/HCC) Start: 04-01-2023 End: 04-01-2023 ambulatory [facility] Start: 03-29-2023 End: 03-29-2023 Emergency department patient visit ELIZABETH Veliz Work Phone: [facility] Work Phone: Start: 03-26-2023 End: 03-26-2023 Emergency department patient visit Jorge Mcintosh [facility] Start: 2023 End: 2023 Emergency department patient visit ELIZABETH Veliz Work Phone: [facility] Work Phone: Start: 03-23-2023 End: 03-23-2023 Emergency department patient visit Nikhil Tubbs [facility] Start: 03-20-2023 End: 03-20-2023 Emergency department patient visit Houstonvera Seng Gonzalo [facility] Start: 03-11-2023 End: 03-11-2023 Emergency department patient visit Balbina Bryant [facility] Start: 03-09-2023 End: 03-09-2023 Emergency department patient visit PHYSICIAN YENNI BLAIR [facility] Work Phone: Start: 02-22-2023 ambulatory Jorge Mcintosh Facility:[facility] Start: 02-21-2023 End: 02-21-2023 Emergency department patient visit Services [facility] Work Phone: [facility] Work Phone: Start: 02-13-2023 End: 02-13-2023 Subsequent hospital visit by physician [address] Comment on above: Chronic hepatitis C without hepatic coma (CMS/HCC) Start: 02-13-2023 End: 02-13-2023 ambulatory [facility] Start: 02-12-2023 End: 02-12-2023 Emergency department patient visit Pedro Pablo Fletcher [facility] Start: 02-08-2023 End: 02-08-2023 Emergency department patient visit Services [facility] Work Phone: [facility] Work Phone: Start: 02-07-2023 End: 02-07-2023 Emergency department patient visit Elisa Sánchez [facility] Start: 02-04-2023 End: 02-04-2023 Emergency department patient visit Services Family [facility] Work Phone: [facility] Work Phone: Start: 02-02-2023 End: 02-02-2023 Emergency department patient visit Services Family [facility] Work Phone: [facility] Work Phone: Start: 01-29-2023 End: 01-29-2023 Emergency department patient visit Jorge Mcintosh [facility] Start: 01-28-2023 End: 01-28-2023 ambulatory Joe Meza Other [facility] [employer] Other Start: 01-28-2023 Telephone encounter Joe CHAU [employer] Start: 01-27-2023 End: 01-27-2023 Emergency department patient visit Services [facility] Work Phone: [facility] Work Phone: Start: 01-23-2023 End: 01-23-2023 Emergency department patient visit Services [facility] Work Phone: [facility] Work Phone: Start: 01-22-2023 End: 01-22-2023 Emergency department patient visit [facility] Start: 01-22-2023 End: 01-22-2023 ambulatory ANNANDALE Oanh [facility] Start: 01-22-2023 End: 01-22-2023 Office outpatient new 30 minutes Jori Cam MD PhD Work Phone: [facility] Comment on above: Chronic low back marily n, unspecified back pain laterality, unspecified whether sciatica present (Primary Dx) Start: 01-15-2023 End: 01-15-2023 ambulatory [facility] Start: 01-15-2023 End: 01-15-2023 Office outpatient new 45 minutes [facility] PA-C Work Phone: [facility] Comment on above: Encounter for screen ing mammogram for breast cancer (Primary Dx); Recurrent major depressive disorder, in full remission (CMS/HCC); Herniation of intervertebral disc between L4 and L5; Lumbar radiculopathy; Chronic hepatitis C without hepatic coma (CMS/HCC); Chronic, continuous use of opioids; Controlled substance agreement signed Start: 01-14-2023 End: 01-14-2023 Emergency department patient visit Jorge Mcintosh [facility] Start: 01-12-2023 End: 01-12-2023 Emergency department patient visit [facility] Start: 01-12-2023 End: 01-12-2023 Emergency department patient visit Services [facility] Work Phone: [facility] Work Phone: Start: 01-11-2023 End: 01-11-2023 Emergency department patient visit Services [facility] Work Phone: [facility] Work Phone: Start: 01-10-2023 End: 01-10-2023 ambulatory Joe Derrick Other [facility] [employer] Other Start: 01-10-2023 Office outpatient vi sit 15 minutes Joe Meza [facility] Start: 01-10-2023 End: 01-10-2023 Emergency department patient visit Nikhil Tubbs [facility] Start: 01-07-2023 End: 01-07-2023 Emergency department patient visit Services [facility] Work Phone: [facility] Work Phone: Start: 01-04-2023 End: 01-05-2023 [facility] Start: 01-04-2023 End: 01-04-2023 Emergency department patient visit Services [facility] Work Phone: [facility] Work Phone: Start: 01-02-2023 End: 01-02-2023 Emergency department patient visit Nikhil Tubbs [facility] Start: 12-31-2022 End: 12-31-2022 Emergency department patient visit DO Elisa Sánchez Facility:[facility] Start: 12-28-2022 End: 12-28-2022 Emergency department patient visit Services [facility] Work Phone: [facility] Work Phone: Start: 12-28-2022 End: 12-28-2022 Patient encounter procedure Services [facility] Work Phone: [facility] [place] Work Phone: Start: 12-28-2022 End: 12-28-2022 ambulatory Estelle Veliz Facility:[facility] Start: 12-27-2022 End: 12-27-2022 ambulatory Rose Marie Joao Other [facility] [employer] Other Start: 12-27-2022 Office outpatient vi sit 15 minutes Rose Marie Shepherd [facility] Start: 12-26-2022 End: 12-26-2022 Emergency department patient visit Alexute Sparks Annette [facility] Start: 12-26-2022 End: 12-26-2022 ambulatory Glen Garza Other [facility] [employer] Other Start: 12-26-2022 Office outpatient vi sit 15 minutes Glen Garza [facility] Start: 12-24-2022 End: 12-24-2022 Emergency department patient visit Services [email or web address] [facility] Work Phone: [facility] Work Phone: Start: 12-23-2022 End: 12-23-2022 Emergency department patient visit Nikhil Tubbs [facility] Start: 12-21-2022 End: 12-21-2022 Emergency department patient visit Services [email or web address] [facility] Work Phone: [facility] Work Phone: Start: 12-18-2022 End: 12-18-2022 Emergency department patient visit Jorge Mcintosh [facility] Start: 12-14-2022 End: 12-14-2022 Emergency department patient visit Services [facility] Work Phone: [facility] Work Phone: Start: 12-13-2022 End: 12-13-2022 Emergency department patient visit Nikhil Tubbs [facility] Start: 12-12-2022 End: 12-13-2022 Emergency department patient visit Elisa Ellsworth Gonzalo [facility] Start: 12-12-2022 (PROC) PROCEDURE Glen Garza [facility] Start: 12-12-2022 End: 12-12-2022 Admission to same day surgery center Services [facility] Work Phone: [facility] Work Phone: Start: 12-12-2022 End: 12-12-2022 ambulatory Services [facility] Work Phone: [facility] Work Phone: Start: 12-11-2022 End: 12-11-2022 Emergency department patient visit Services [facility] Work Phone: [facility] Work Phone: Start: 12-10-2022 End: 12-10-2022 Emergency department patient visit Services [facility] Work Phone: [facility] Work Phone: Start: 12-09-2022 End: 12-09-2022 Emergency department patient visit Services [facility] Work Phone: [facility] Work Phone: Start: 12-07-2022 End: 12-07-2022 Emergency department patient visit Chandana Varela [facility] Start: 12-07-2022 End: 12-07-2022 Emergency department patient visit Services [facility] Work Phone: [facility] Work Phone: Start: 12-04-2022 End: 12-04-2022 Emergency department patient visit ALLYSON E COREY [facility] Start: 12-04-2022 End: 12-04-2022 Emergency department patient visit Allyson Lucero Griffiths DO Work Phone: [facility] Start: 11-29-2022 End: 11-29-2022 Emergency department patient visit Services [facility] Work Phone: [facility] Work Phone: Start: 11-28-2022 (PROC) PROCEDURE Glen Garza [facility] Start: 11-28-2022 End: 11-28-2022 Admission to same day surgery center Services [facility] Work Phone: [facility] Work Phone: Start: 11-28-2022 End: 11-28-2022 ambulatory Services [facility] Work Phone: [facility] Work Phone: Start: 11-19-2022 End: 11-19-2022 ambulatory Glen Garza Other [employer] Other Start: 11-19-2022 Office outpatient vi sit 25 minutes Glen Garza [facility] Start: 11-18-2022 End: 11-18-2022 Emergency department patient visit Services [facility] Work Phone: [facility] Work Phone: Start: 11-16-2022 End: 11-17-2022 Emergency department patient visit Services [facility] Work Phone: [facility] Work Phone: Start: 11-15-2022 End: 11-15-2022 Emergency department patient visit Services [facility] Work Phone: [facility] Work Phone: Start: 11-12-2022 End: 11-12-2022 Emergency department patient visit Services [facility] Work Phone: [facility] Work Phone: Start: 11-11-2022 End: 11-11-2022 Emergency department patient visit Services [facility] Work Phone: [facility] Work Phone: Start: 11-08-2022 End: 11-08-2022 Emergency department patient visit Services [facility] Work Phone: [facility] Work Phone: Start: 11-06-2022 Office outpatient vi sit 15 minutes Rose Marie Shepherd [facility] Start: 11-06-2022 End: 11-06-2022 Patient encounter procedure Services [facility] Work Phone: [facility] [place] Work Phone: Start: 11-06-2022 End: 11-06-2022 ambulatory Services [facility] Work Phone: [facility] Work Phone: Start: 11-05-2022 End: 11-05-2022 Emergency department patient visit MD RASHAD RAMACHANDRAN Facility:[id number] Start: 11-01-2022 End: 11-01-2022 Emergency department patient visit Services [facility] Work Phone: [facility] Work Phone: Start: 10-31-2022 End: 10-31-2022 Patient encounter procedure Services [facility] Work Phone: [facility] [place] Work Phone: Start: 10-31-2022 End: 10-31-2022 ambulatory Services [facility] Work Phone: [facility] Work Phone: Start: 10-25-2022 End: 10-26-2022 Emergency department patient visit Services [facility] Work Phone: [facility] Work Phone: Start: 10-23-2022 End: 10-23-2022 Emergency department patient visit Services [facility] Work Phone: [facility] Work Phone: Start: 10-16-2022 End: 10-16-2022 Emergency department patient visit Services [facility] Work Phone: [facility] Work Phone: Start: 10-11-2022 End: 10-11-2022 Emergency department patient visit Services [facility] Work Phone: [facility] Work Phone: Start: 10-07-2022 End: 10-07-2022 Emergency department patient visit Services [facility] Work Phone: [facility] Work Phone: Start: 10-04-2022 End: 10-04-2022 Emergency department patient visit Services [facility] Work Phone: [facility] Work Phone: Start: 10-02-2022 End: 10-02-2022 Emergency department patient visit Services [facility] Work Phone: [facility] Work Phone: Start: 09-28-2022 End: 09-28-2022 Emergency department patient visit Services [facility] Work Phone: [facility] Work Phone: Start: 09-26-2022 End: 09-26-2022 ambulatory Glen Garza Other [place] [employer] Other Start: 09-26-2022 Office outpatient vi sit 15 minutes Glen Garza [facility] Start: 09-24-2022 End: 09-24-2022 Emergency department patient visit Services [facility] Work Phone: [facility] Work Phone: Start: 09-22-2022 End: 09-22-2022 Emergency department patient visit Services [facility] Work Phone: [facility] Work Phone: Start: 09-19-2022 (PROC) PROCEDURE Glen Garza [facility] Start: 09-19-2022 End: 09-19-2022 Admission to same day surgery center Services [facility] Work Phone: [facility] Work Phone: Start: 09-19-2022 End: 09-19-2022 ambulatory Services [facility] Work Phone: [facility] [employer] Other Start: 09-18-2022 End: 09-18-2022 Emergency department patient visit Services [facility] Work Phone: [facility] Work Phone: Start: 09-11-2022 End: 09-11-2022 ambulatory Rose Marie Shepherd Other [employer] Other Start: 09-11-2022 Telephone encounter Rose Marie Shepherd [facility] Start: 09-11-2022 End: 09-11-2022 Emergency department patient visit Services [facility] Work Phone: [facility] Work Phone: Start: 09-10-2022 End: 09-10-2022 Patient encounter procedure Services [facility] Work Phone: [facility] Work Phone: Start: 09-06-2022 End: 09-06-2022 Discharged Recurring Services [facility] Work Phone: [facility] [place] Start: 09-05-2022 End: 09-05-2022 Emergency department patient visit Services [facility] Work Phone: [facility] Work Phone: Start: 09-04-2022 End: 09-04-2022 Emergency department patient visit Pedro Pablo Fletcher [facility] Start: 09-04-2022 End: 09-04-2022 ambulatory Glen Garza Other [employer] Other Start: 09-04-2022 Office consultation new/estab patient 60 min Glen [facility] Start: 09-04-2022 Telephone encounter Glen CHAU [employer] Start: 09-01-2022 End: 09-01-2022 Emergency department patient visit Services [facility] Work Phone: [facility] Work Phone: Start: 08-31-2022 End: 08-31-2022 Emergency department patient visit Services [facility] Work Phone: [facility] Work Phone: Start: 08-27-2022 End: 08-27-2022 ambulatory Rose Marie Shepherd Other [employer] Other Start: 08-27-2022 Telephone encounter Rose Marie CHAU [facility] Start: 08-26-2022 End: 08-26-2022 Emergency department patient visit Services [facility] Work Phone: [facility] Work Phone: Start: 08-21-2022 End: 08-21-2022 ambulatory Rose Marie Shepherd Other [employer] Other Start: 08-21-2022 Office outpatient ne w 45 minutes Rose Marie Shepherd [facility] Start: 08-16-2022 End: 08-17-2022 Emergency department patient visit Services [facility] Work Phone: [facility] Work Phone: Start: 08-13-2022 End: 08-13-2022 Emergency department patient visit Services [facility] Work Phone: [facility] Room Work Phone: Start: 08-09-2022 End: 08-09-2022 Patient encounter procedure [facility] Work Phone: [facility] [place] Work Phone: Start: 08-06-2022 End: 08-06-2022 Emergency department patient visit [facility] Work Phone: [facility] Work Phone: Start: 08-02-2022 End: 08-02-2022 Emergency department patient visit [facility] Work Phone: [facility] Work Phone: Start: 06-16-2022 End: 06-16-2022 Emergency department patient visit [facility] Work Phone: [facility] Work Phone: Start: 03-30-2022 End: 03-30-2022 Admission to same day surgery center [facility] Work Phone: [facility] Work Phone: Start: 03-22-2022 End: 03-22-2022 ambulatory Keke Skaggs Other [facility] [employer] Other Start: 03-22-2022 Telephone encounter Keke Small ck [facility] Start: 03-19-2022 End: 03-19-2022 Emergency department patient visit [facility] Work Phone: [facility] Work Phone: Start: 03-17-2022 End: 03-17-2022 Emergency department patient visit [facility] Work Phone: [facility] Work Phone: Start: 03-14-2022 End: 03-14-2022 Emergency department patient visit [facility] Work Phone: [facility] Start: 02-03-2022 End: 02-03-2022 Emergency department patient visit [facility] Work Phone: [facility] Start: 01-21-2022 End: 01-21-2022 Emergency department patient visit [facility] Work Phone: [facility] Start: 01-10-2022 End: 01-10-2022 Patient encounter procedure [facility] Start: 12-20-2021 End: 12-20-2021 ambulatory [facility] Work Phone: [facility] Work Phone: Start: 12-20-2021 End: 12-20-2021 Patient encounter procedure [facility] Work Phone: [facility] [place] Start: 11-13-2021 End: 11-14-2021 Emergency department patient visit [facility] Work Phone: [facility] Start: 10-30-2021 End: 10-30-2021 Patient encounter procedure [facility] Work Phone: [facility] [place] Start: 10-18-2021 End: 10-18-2021 Emergency department patient visit [facility] Work Phone: [facility] Start: 10-15-2021 End: 10-15-[address] [facility] [place] Start: 10-09-2021 End: 10-10-2021 Emergency department patient visit [facility] Work Phone: [facility] Start: 09-19-2021 End: 09-19-2021 Patient encounter procedure Services [email or web address] [facility] Work Phone: [facility] [place] Start: 09-13-2021 End: 09-14-2021 ambulatory ALMAS GRULLON Facility: Start: 09-13-2021 End: 09-13-2021 Emergency department patient visit [facility] Work Phone: [facility] Start: 06-21-2021 End: 06-21-2021 Lab Drop off Dagoberto Seng Romero [facility] Start: 04-18-2021 (Procedure) Short Avery Goodman [facility] Start: 04-18-2021 End: 04-18-2021 ambulatory Avery Goodman Other [facility] Other Start: 03-30-2021 End: 03-30-2021 ambulatory Avery Goodman Other [facility] Other Start: 03-30-2021 Office consultation new/estab patient 60 min Avery Goodman [facility] Start: 02-15-2021 End: 02-15-2021 ambulatory Jd Malone Other [facility] Other Start: 02-15-2021 Office outpatient vi sit 15 minutes Jd Malone [facility] Procedures Date Procedure Procedure Detail Performing Clinician Start: 10-30-2023 Mri spinal canal lumbar w/o & w/contr matrl Gabbi Corbinus PA-C Work Phone: Start: 10-30-2023 Radiologic exam abdomen 1 view Gabbi Corbinus PA-C Work Phone: Start: 10-30-2023 Basic metabolic panel calcium total Gabbi Corbinus PA-C Work Phone: Start: 10-30-2023 C-reactive protein Gabbi Hernandez Ruth PA-C Work Phone: Start: 10-19-2023 SARS-CoV-2, Influenza & RSV (PCR) Services [facility] Work Phone: Start: 10-19-2023 Plain chest X-ray [facility] Work Phone: Start: 10-05-2023 Computed tomography of abdomen and pelvis with contrast [facility] Work Phone: Start: 10-05-2023 Plain chest X-ray [facility] Work Phone: Start: 10-05-2023 Blood culture for bacteria, including anaerobic screen [facility] Work Phone: Start: 10-05-2023 Urine culture [facility] Work Phone: Start: 08-21-2023 XR tomography Unspecified body region Tiff Story MD Work Phone: Start: 08-21-2023 PULSE OXIMETRY, CONTINUOUS Joe miller MD Work Phone: Start: 08-21-2023 VERAB/VERIFY ABORH Elke Adams MD Work Phone: Start: 08-21-2023 PULSE OXIMETRY, SPOT Chirag fam 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Start: 08-02-2023 EXTRA URINE CASTRO TUBE CHIDI YUEN Start: 08-02-2023 URINALYSIS WITH REFLEX CULTURE AND MICROSCOPIC CHIDI YUEN Start: 08-02-2023 Basic metabolic 2000 panel - Serum or Plasma CHIDI YUEN Start: 08-02-2023 CBC panel - Blood by Automated count CHIDI YUEN Start: 08-02-2023 COAGULATION SCREEN CHIDI YUEN Start: 08-02-2023 STAPHYLOCOCCUS AUREUS/MRSA COLONIZATION, CULTURE CHIDI YUEN Start: 08-02-2023 TYPE AND SCREEN CHIDI YUEN Start: 08-02-2023 REQUEST FOR PRE-ADMISSION TESTING [...] Plain X-ray of left shoulder Start: 04-01-2023 [id number] CHIDIKARINA MORRISWendy Start: 04-01-2023 ALPHA-FETOPROTEIN CHIDIKARINA YUNE Start: 04-01-2023 BEATRIZ-WITH REFLEX TO JESUS CHIDIKARINA YUEN Start: 04-01-2023 ANTI-MITOCHONDRIAL ANTIBODY CHIDI ALEXANDRA Nguyen Start: 04-01-2023 ANTI-SMOOTH MUSCLE ANTIBODY CHIDIKARINA MORRIS Start: 04-01-2023 Bilirubin.indirect [Mass/volume] in Serum or Plasma CHIDIKARINA YUEN Start: 04-01-2023 CBC W Auto Differential panel - Blood CHIDI ALEXANDRAWendy Start: 04-01-2023 CERULOPLASMIN CHIDIKARINA MORRISWendy Start: 04-01-2023 Comprehensive metabolic 2000 panel - Serum or Plasma CHIDIKARINA YUEN Start: 04-01-2023 Ferritin [Mass/volume] in Serum or Plasma CHIDIKARINA MORRIS Start: 04-01-2023 HCV PCR WITH GENOTYPE REFLEX CHIDI HUDSON AM Start: 04-01-2023 HEPATITIS A ANTIBODY, TOTAL CHIDI ALEXANDRA M Start: 04-01-2023 HEPATITIS B CORE ANTIBODY, TOTAL CHIDI ALEXANDRAWendy Start: 04-01-2023 HEPATITIS B SURFACE ANTIBODY CHIDI HUDSON AM Start: 04-01-2023 HEPATITIS B SURFACE ANTIGEN CHIDI DUVALLRAO Wendy Start: 04-01-2023 HEPATITIS C GENOTYPE CHIDI YUEN [...] abdominal real time w/image limited Antonio Husain PA-C Work Phone: Start: 01-15-2023 DRUG SCREEN, URINE WITH REFLEX TO CONFIRMATION ANTONIO HUSAIN Start: 12-28-2022 X-ray of lumbar spine, six views including bending views Services [facility] Phone: Start: 12-12-2022 Injection of spinal epidural space [facility] Phone: Start: 12-09-2022 X-ray of lumbar spine, four or more views [facility] Phone: Start: 11-28-2022 Injection of spinal epidural space [facility] Phone: Start: 11-17-2022 X-ray of lumbar spine, two or three views [facility] Phone: Start: 11-06-2022 Plain X-ray of left hip [facility] Phone: Start: 10-31-2022 MR lumbar spine wo con [facility] Phone: Start: 10-16-2022 CT of lumbar spine without contrast [facility] Phone: Start: 09-19-2022 Injection of local anesthetic into sacroiliac joint [facility] Phone: Start: 09-11-2022 X-ray of lumbar spine, four or more views [facility] Phone: Start: 09-10-2022 Dual energy X-ray absorptiometry [facility] Phone: Start: 08-09-2022 X-ray of lumbar spine, six views including bending views [facility] Phone: Start: 03-30-2022 End: 03-30-2022 Colonoscopy [facility] Phone: Start: 03-19-2022 CT of abdomen and pelvis without contrast [facility] Phone: Start: 03-19-2022 SARS-CoV-2, Influenza & RSV (PCR) Services [facility] Phone: Start: 03-14-2022 Computed tomography of abdomen and pelvis with contrast [facility] Phone: Start: 03-14-2022 Screening for occult blood in feces [facility] Phone: Start: 02-03-2022 CT of abdomen and pelvis without contrast [facility] Phone: Start: 02-03-2022 Urine culture [facility] Phone: Start: 12-20-2021 Plain X-ray of left shoulder Services [facility] [employer] Phone: Start: 11-13-2021 Computed tomography of abdomen and pelvis with contrast Services [facility] Phone: Start: 10-18-2021 Plain chest X-ray [facility] Phone: Start: 10-09-2021 Computed tomography of abdomen and pelvis with contrast Services [facility] Phone: Start: 03-25-2010 Hysterectomy Cheyanne Rosas History of cholecystectomy L annette Skaggs Other History of cholecystectomy E marcos Rosas Hysterectomy Dagoberto Romero Hysterectomy Cheyanne Rosas lap x 7 Dagoberto Romero Tonillectomy with adenoids N jewell Romero Urine culture Services [facility] Work Phone: Plan of Treatment Date Care Activity Detail Author Start: 2037 RSV patients and/or patients aged 60+ years (1 - 1-dose 60+ series) RSV patients and/or patients aged 60+ years (1 - 1-dose 60+ series) [facility] Start: 03-30-2032 Screening for malignant neoplasm of colon [facility] Start: 2027 Zoster Vaccines (1 of 2) Zoster Vaccines (1 of 2) [facility] Start: 11-24-2023 Influenza vaccination Influenza Vaccine (Season Ended) [facility] Start: 10-24-2023 Influenza vaccination [facility] Start: 10-24-2023 Refusal of treatment by patient INFLUENZA VACCINE [facility] Start: 10-19-2023 Bacteria identified in Blood by Culture [facility] Start: 10-05-2023 Bacteria identified in Blood by Culture [facility] Start: 10-05-2023 Bacteria identified in Urine by Culture [facility] Start: 08-27-2023 End: 08-27-2023 Patient encounter procedure 08/27/2023 1:00 PM EDT Office Visit [facility] [address] [facility] [address] [place] [address] Chirag Oviedo N, 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 [address] Department [place] [address] [facility] Start: 07-08-2023 End: 07-08-2023 Telemedicine consultation with patient 07/08/2023 10:00 AM EDT Telemedicine [facility] [address] [place] [id number] [place] [address] Department of Psychiat[place] [address] [facility] Start: 06-05-2023 End: 06-05-2023 Patient encounter procedure 06/05/2023 8:00 AM EDT Office Visit [facility] [address] [facility] [address] [place] [address] [place] [address] Department [place] [address] [facility] Start: 06-03-2023 End: 06-03-2023 Patient encounter procedure 06/03/2023 8:45 AM EDT Office Visit [address] [phone] Belkis Hernandez, DO [address] [facility], [address] [place] [address] [facility] Start: 05-24-2023 Hepatitis B vaccine (2 of 2 - CpG 2-dose series) Hepatitis B vaccine (2 of 2 - CpG 2-dose series) [facility] Start: 05-24-2023 Hepatitis B Vaccines (2 of 2 - CpG 2-dose series) Hepatitis B Vaccines (2 of 2 - CpG 2-dose series) [facility] Start: 05-20-2023 End: 05-20-2024 XR Wrist - right 3 Views [facility] Service Ar ea Work Phone: Comment on above: Expected: 05/20/2023, Expires: Start: 05-08-2023 End: 05-08-2023 Patient encounter procedure 05/08/2023 8:45 AM EST Office Visit [facility] [address] [facility] [address] [place] [address] [place] [address] Department of Neurological Surgery [place], [place] [id number] [facility] Start: 04-30-2023 End: 04-30-2023 Patient encounter procedure 04/30/2023 11:00 AM EST Office Visit [facility] [address] Leonardo [place]rí[place] [address] [place] [address] [place] [address] [facility] Start: 04-17-2023 End: 04-17-2023 Patient encounter procedure 04/17/2023 1:10 PM EST Office Visit [facility] [address] [place] [address] Antonio Husain PA-C [address] [facility] [place] [address] [facility] Start: 04-01-2023 End: 04-01-2024 Alpha 1 antitrypsin [Mass/volume] in Serum or Plasma by Nephelometry [facility] Work Phone: Comment on above: Expected: 04/01/2023 (Approximate), Expi res: 04/01/2024 Start: 04-01-2023 End: 04-01-2024 [id number] [Mass/volume] in Serum or Plasma [facility] Work Phone: Comment on above: Expected: 04/01/2023 (Approximate), Expi res: 04/01/2024 Start: 04-01-2023 End: 04-01-2024 Bilirubin.direct [Mass/volume] in Serum or Plasma [facility] Work Phone: Comment on above: Expected: 04/01/2023 (Approximate), Expi res: 04/01/2024 Start: 04-01-2023 End: 04-01-2024 CBC W Auto Differential panel - Blood [facility] Work Phone: Comment on above: Expected: 04/01/2023 (Approximate), Expi res: 04/01/2024 Start: 04-01-2023 End: 04-01-2024 Ceruloplasmin [Mass/volume] in Serum or Plasma [facility] Work Phone: Comment on above: Expected: 04/01/2023 (Approximate), Expi res: 04/01/2024 Start: 04-01-2023 End: 04-01-2024 Comprehensive metabolic 2000 panel - Serum or Plasma [facility] Work Phone: Comment on above: Expected: 04/01/2023 (Approximate), Expi res: 04/01/2024 Start: 04-01-2023 End: 04-01-2024 Ferritin [Mass/volume] in Serum or Plasma [facility] Work Phone: Comment on above: Expected: 04/01/2023 (Approximate), Expi res: 04/01/2024 Start: 04-01-2023 End: 04-01-2024 Hepatitis A virus Ab [Presence] in Serum by Immunoassay [facility] Work Phone: Comment on above: Expected: 04/01/2023 (Approximate), Expi res: 04/01/2024 Start: 04-01-2023 End: 04-01-2024 Hepatitis B virus core Ab [Presence] in Serum [facility] Work Phone: Comment on above: Expected: 04/01/2023 (Approximate), Expi res: 04/01/2024 Start: 04-01-2023 End: 04-01-2024 Hepatitis B virus surface Ab [Units/volume] in Serum [facility] Work Phone: Comment on above: Expected: 04/01/2023 (Approximate), Expi res: 04/01/2024 Start: 04-01-2023 End: 04-01-2024 Hepatitis B virus surface Ag [Presence] in Serum or Plasma by Immunoassay [facility] Work Phone: Comment on above: Expected: 04/01/2023 (Approximate), Expi res: 04/01/2024 Start: 04-01-2023 End: 04-01-2024 Hepatitis C virus RNA panel (viral load) in Serum or Plasma by LINDSEY with probe detection [facility] Work Phone: Comment on above: Expected: 04/01/2023 (Approximate), Expi res: 04/01/2024 Start: 04-01-2023 End: 04-01-2024 HIV 1+2 Ab+HIV1 p24 Ag [Presence] in Serum or Plasma by Immunoassay [facility] Work Phone: Comment on above: Expected: 04/01/2023 (Approximate), Expi res: 04/01/2024 Start: 04-01-2023 End: 04-01-2024 Iron and Iron binding capacity panel - Serum or Plasma [facility] Work Phone: Comment on above: Expected: 04/01/2023 (Approximate), Expi res: 04/01/2024 Start: 04-01-2023 End: 04-01-2024 Liver Elastography (Fibroscan) Liver Elastography (Fibroscan) GI Routine Chronic hepatitis C without hepatic coma (CMS/HCC) Expected: 04/01/2023 (Approximate), Expires: 04/01/2024 [facility] Service Area Work Phone: Comment on above: Expected: 04/01/2023 (Approximate), Expi res: 04/01/2024 Start: 04-01-2023 End: 04-01-2024 Mitochondria Ab [Presence] in Serum by Immunofluorescence [facility] Work Phone: Comment on above: Expected: 04/01/2023 (Approximate), Expi res: 04/01/2024 Start: 04-01-2023 End: 04-01-2024 Nuclear Ab [Presence] in Serum by Hep2 substrate [facility] Work Phone: Comment on above: Expected: 04/01/2023 (Approximate), Expi res: 04/01/2024 Start: 04-01-2023 End: 04-01-2024 Phosphatidylethanol (PEth), Whole Blood, Quantitative [facility] Work Phone: Comment on above: Expected: 04/01/2023 (Approximate), Expi res: 04/01/2024 Start: 04-01-2023 End: 04-01-2024 Prothrombin time (PT) [facility] Work Phone: Comment on above: Expected: 04/01/2023 (Approximate), Expi res: 04/01/2024 Start: 04-01-2023 End: 04-01-2024 Smooth muscle Ab [Presence] in Serum by Immunofluorescence [facility] Work Phone: Comment on above: Expected: 04/01/2023 (Approximate), Expi res: 04/01/2024 Start: 01-22-2023 End: 01-23-2024 XR Lumbar spine Views W flexion and W extension XR lumbar spine 4+ views w flexion extension Imaging Routine Chronic low back pain, unspecified back pain laterality, unspecified whether sciatica present Expected: 01/22/2023, Expires: 01/23/2024 [facility] Service Area Work Phone: Comment on above: Expected: 01/22/2023, Expires: Start: 01-22-2023 End: 01-22-2023 Patient encounter procedure 01/22/2023 1:30 PM EDT Office Visit [facility] [address] [place] [address] [address] [place] [address] [place] [address] [facility] [address] [place] [address], [address] [id number] [facility] Start: 01-18-2023 End: 01-18-2023 Patient encounter procedure 01/18/2023 9:30 AM EDT Appointment [address] [phone] [facility] Start: 01-15-2023 End: 03-17-2024 DBT Breast - bilateral BI mammo bilateral screening tomosynthesis Imaging Routine Encounter for screening mammogram for breast cancer Expected: 01/15/2023, Expires: 03/17/2024 [facility] Service Area Work Phone: Comment on above: Expected: 01/15/2023, Expires: Start: 01-15-2023 End: 01-16-2024 Drugs of abuse screen W Reflex confirm panel - Urine [facility] Work Phone: Comment on above: Expected: 01/15/2023 (Approximate), Expi res: 01/16/2024 Start: 01-15-2023 End: 01-16-2024 Hepatitis C virus Ab [Presence] in Serum Hepatitis C Antibody Lab Routine Chronic hepatitis C without hepatic coma (CMS/HCC) Expected: 01/15/2023 (Approximate), Expires: 01/16/2024 [facility] Work Phone: Comment on above: Expected: 01/15/2023 (Approximate), Expi res: 01/16/2024 Start: 01-15-2023 End: 01-16-2024 Hepatitis C virus RNA panel (viral load) in Serum or Plasma by LINDSEY with probe detection Hepatitis C RNA, Quantitative, PCR Lab Routine Chronic hepatitis C without hepatic coma (CMS/HCC) Expected: 01/15/2023 (Approximate), Expires: 01/16/2024 [facility] Work Phone: Comment on above: Expected: 01/15/2023 (Approximate), Expi res: 01/16/2024 Start: 01-15-2023 End: 01-16-2024 US Liver limited US abdomen limited liver Imaging Routine Chronic hepatitis C without hepatic coma (CMS/HCC) Expected: 01/15/2023, Expires: 01/16/2024 [facility] Work Phone: Comment on above: Expected: 01/15/2023, Expires: Start: 12-12-2022 [facility] Start: 11-28-2022 [facility] Start: 11-23-2022 COVID-19 VACCINE ( season) COVID-19 VACCINE ( season) [facility] Start: 11-23-2022 Influenza vaccination Influenza Vaccine (#1) [facility] Start: 11-17-2022 X-ray of lumbar spine, two or three views XR lumbar spine 2-3V* [facility] Start: 11-17-2022 XR Lumbar spine 2 or 3 Views [facility] Start: 10-23-2022 Refusal of treatment by patient INFLUENZA VACCINE [facility] Start: 03-30-2022 [facility] Start: 2022 DIABETES SCREENING DIABETES SCREENING [facility] Start: 2022 Screening for malignant neoplasm of colon [facility] Start: 11-13-2021 Computed tomography of abdomen and pelvis with contrast CT abdomen pelvis w [facility] Start: 11-13-2021 End: 11-14-2021 Emergency department patient visit Departed Emergency [facility] Start: 10-30-2021 End: 10-30-2021 Patient encounter procedure Departed Clinical [facility] [place] Start: 08-28-2020 COVID-19 VACCINE (2 - Booster for Teddy series) COVID-19 VACCINE (2 - Booster for Teddy series) [facility] Start: 2017 Lipid panel Lipids [facility] Start: 2017 Screening for malignant neoplasm of breast [facility] Start: 2002 CERVICAL CANCER SCREENING CERVICAL CANCER SCREENING [facility] Start: 2002 COTEST / HPV COTEST / HPV [facility] Start: 1999 DTaP/Tdap/Td Vaccines (1 - Tdap) DTaP/Tdap/Td Vaccines (1 - Tdap) [facility] Start: 1998 Microscopic observation [Identifier] in Cervix by Cyto stain PAP SMEAR [facility] Start: 1998 Screening for malignant neoplasm of cervix [facility] Start: 1996 DTaP/Tdap/Td vaccine (1 - Tdap) DTaP/Tdap/Td vaccine (1 - Tdap) [facility] Start: 1996 DTaP/Tdap/Td VACCINES (1 - Tdap) DTaP/Tdap/Td VACCINES (1 - Tdap) [facility] Start: 1996 Hepatitis A Vaccines (1 of 2 - Risk 2-dose series) Hepatitis A Vaccines (1 of 2 - Risk 2-dose series) [facility] Start: 1996 HEPATITIS B VACCINES (1 of 3 - 19+ 3-dose series) HEPATITIS B VACCINES (1 of 3 - 19+ 3-dose series) [facility] Start: 1995 BREAST CANCER SCREENING BREAST CANCER SCREENING [facility] Start: 1995 Diabetes mellitus screening Diabetes Screening [facility] Start: 1995 HEPATITIS C SCREENING HEPATITIS C SCREENING [facility] Start: 1995 Hepatitis C screening [facility] Start: 1992 HIV SCREENING HIV SCREENING [facility] Start: 1992 HIV screening HIV screen [facility] Start: 1989 Depression Screen Depression Screen [facility] Start: 1983 Pneumococcal 0-64 years Vaccine (1 of 2 - PCV) Pneumococcal 0-64 years Vaccine (1 of 2 - PCV) [facility] Start: 1983 PNEUMOCOCCAL VACCINE: Pediatrics (0 to 5 Years) and At-Risk Patients (6 to 64 Years) (1 - PCV) PNEUMOCOCCAL VACCINE: Pediatrics (0 to 5 Years) and At-Risk Patients (6 to 64 Years) (1 - PCV) [facility] Start: 1983 PNEUMOCOCCAL VACCINE: Pediatrics (0 to 5 Years) and At-Risk Patients (6 to 64 Years) (1 of 2 - PCV) PNEUMOCOCCAL VACCINE: Pediatrics (0 to 5 Years) and At-Risk Patients (6 to 64 Years) (1 of 2 - PCV) [facility] Start: 1980 ANNUAL PREVENTIVE PHYSICAL (INCLUDES MAAP) ANNUAL PREVENTIVE PHYSICAL (INCLUDES MAAP) [facility] Start: 1978 MMR Vaccines (1 of 1 - Standard series) MMR Vaccines (1 of 1 - Standard series) [facility] Start: 1977 COVID-19 Vaccine (#1) COVID-19 Vaccine (#1) [facility] Start: 1977 Colonoscopy Colonoscopy [facility] Start: 1977 COLORECTAL CANCER SCREENING COLORECTAL CANCER SCREENING [facility] Start: [address] Colonography [facility] Start: 1977 FIT-DNA (Cologuard) FIT-DNA (Cologuard) [facility] Start: 1977 FOBT/FIT FOBT/FIT [facility] Start: 1977 HEPATITIS B VACCINES (1 of 3 - 3-dose series) HEPATITIS B VACCINES (1 of 3 - 3-dose series) [facility] Start: 1977 HIV screening HIV Screening [facility] Start: 1977 Lipid panel Lipid Panel [facility] Start: 1977 Screening for malignant neoplasm of colon [facility] Start: 1977 Yearly Adult Physical Yearly Adult Physical [facility] Bacteria identified in Urine by Culture [facility] MR Lumbar spine WO a nd W contrast IV MRI LUMBAR SPINE W WO CONTRAST Imaging STAT 10/30/2023 9:03 PM EDT [facility] [employer] [facility] Work Phone: Patient Education [facility] Work Phone: Patient referral [facility] Work Phone: End: 02-13-2023 Liver limited [facility] Service Area Work Phone: Comment on above: Once for 1 Occurrences starting 02/14/20 23 until 02/13/2023 Immunizations Immunization Date Immunization Notes Care Provider Farhat roman 04-26-2023 hepatitis B vaccine, adult dosage Dax Lira [facility] 07-03-2020 SARS-CoV-2 (COVID-19 ) Ad26 vaccine, recombinant Dax L[facility] Payers Date Payer Category Payer Unknown [id number] 05-24-2023 Unknown [id number] 07-16-2022 [facility] [id number] 2.16.840.1.392390.19 04-25-2022 Medicaid [id number]. 1.13.129.2. [id number] 04-25-2022 Unknown 1977 Unknown [id number] 2.16.840.1.832836.3.579.2. 593 1977 Unknown [id number] 2.16.840.1.066237.3.579.2. 593 1977 Unknown [id number] 2.16.840.1.683652.3.579.2. 1069 1977 Unknown [id number] 2.16.840.1.306207.3.579.2. 1244 1977 Unknown [id number] 2.16.840.1.334703.3.579.2. 1244 1977 Unknown [id number] 2.16.840.1.403282.3.579.2. 1244 1977 Unknown [id number] 2.16.840.1.112457.3.579.2. 1244 1977 Unknown [id number] 2.16.840.1.125580.3.579.2. 1244 1977 Unknown [id number] 2.16.840.1.663353.3.579.2. 196 1977 Unknown [id number] 2.16.840.1.040762.3.579.2. 196 1977 Unknown [id number] 2.16.840.1.871631.3.579.2. 718 1977 Unknown [id number] 2.16.840.1.501699.3.579.2. 718 1977 Unknown [id number] 2.16.840.1.867348.3.579.2. 718 1977 Unknown [id number] 2.16.840.1.090469.3.579.2. 1243 1977 Unknown [id number] 2.16.840.1.032441.3.579.2. 1243 1977 Unknown [id number] 2.16.840.1.169495.3.579.2. 1243 1977 Unknown [id number] 2.16.840.1.550650.3.579.2. 1243 1977 Unknown [id number] 2.16.840.1.979501.3.579.2. 1243 1977 Unknown [id number] 2.16.840.1.466912.3.579.2. 1242 1977 Unknown [id number] 2.16.840.1.207740.3.579.2. 124 1977 Unknown [id number] 2.16.840.1.584453.3.579.2 1977 Unknown [id number] 2.16.840.1.471179.3.579.2 1977 Unknown [id number] 2.16.840.1.405227.3.579.2 72 1977 Unknown [id number] 2.16.840.1.326467.3.579.2 1977 Unknown [id number] 2.16.840.1.622631.3.579.2 1977 Unknown [id number] 2.16.840.1.300315.3.579.2 72 1977 Unknown [id number] 2.16.840.1.412915.3.579.2 72 1977 Unknown [id number] 2.16.840.1.674451.3.579.2 72 1977 Unknown [id number] 2.16.840.1.500809.3.579.2 1977 Unknown [id number] 2.16.840.1.951063.3.579.2 72 1977 Unknown [id number] 2.16.840.1.094780.3.579.2 1977 Unknown [id number] 2.16.840.1.172055.3.579.2 1977 Unknown [id number] 2.16.840.1.732027.3.579.2 1977 Unknown [id number] 2.16.840.1.609786.3.579.2 1977 Unknown [id number] 2.16.840.1.952216.3.579.2 1977 Unknown [id number] 2.16.840.1.077643.3.579.2 1977 Unknown [id number] 2.16.840.1.195729.3.579.2 1977 Unknown [id number] 2.16.840.1.635523.3.579.2 1977 Unknown [id number] 2.16.840.1.931926.3.579.2 1977 Unknown [id number] 2.16.840.1.118415.3.579. 1977 Unknown [id number] 2.16.840.1.156936.3.579.2 1977 Unknown [id number] 2.16.840.1.056116.3.579.2 1977 Unknown [id number] 2.16.840.1.935196.3.579.2 1977 Unknown [id number] 2.16.840.1.825568.3.579.2 1977 Unknown [id number] 2.16.840.1.421482.3.579.2 1977 Unknown [id number] 2.16.840.1.608583.3.579.2 1977 Unknown [id number] 2.16.840.1.645606.3.579.2 1977 Unknown [id number] 2.16.840.1.150087.3.579.2 1977 Unknown [id number] 2.16.840.1.014865.3.579.2 1977 Unknown [id number] 2.16.840.1.486471.3.579.2 1977 Unknown [id number] 2.16.840.1.574418.3.579.2 1977 Unknown [id number] 2.16.840.1.999207.3.579.2 1977 Unknown [id number] 2.16.840.1.964992.3.579.2 1977 Unknown [id number] 2.16.840.1.625443.3.579.2 1977 Unknown [id number] 2.16.840.1.185694.3.579.2 1977 Unknown [id number] 2.16.840.1.613160.3.579.2 1977 Unknown [id number] 2.16.840.1.587011.3.579.2 1977 Unknown [id number] 2.16.840.1.828261.3.579.2 1977 Unknown [id number] 2.16.840.1.121386.3.579.2 1977 Unknown [id number] 2.16.840.1.974829.3.579.2 1977 Unknown [id number] 2.16.840.1.195085.3.579.2 1977 Unknown [id number] 2.16.840.1.183930.3.579.2 1977 Unknown [id number] 2.16.840.1.024099.3.579.2. 72 1977 Unknown [id number] 2.16.840.1.296852.3.579.2. 72 1977 Unknown [id number] 2.16.840.1.293693.3.579.2. 72 1977 Unknown [id number] 2.16.840.1.306750.3.579.2. 1977 Unknown [id number] 2.16.840.1.831513.3.579.2. 1977 Unknown [id number] 2.16.840.1.507797.3.579.2 1977 Unknown [id number] 2.16.840.1.693637.3.579.2 1977 Unknown [id number] 2.16.840.1.561523.3.579.2 1977 Unknown [id number] 2.16.840.1.983645.3.579.2 1977 Unknown [id number] 2.16.840.1.079330.3.579.2 1977 Unknown [id number] 2.16.840.1.800272.3.579.2 1977 Unknown [id number] 2.16.840.1.948798.3.579.2 1977 Unknown [id number] 2.16.840.1.722438.3.579.2 1977 Unknown [id number] 2.16.840.1.083809.3.579.2 1977 Unknown [id number] 2.16.840.1.880272.3.579.2 1977 Unknown [id number] 2.16.840.1.232948.3.579.2 1977 Unknown [id number] 2.16.840.1.666038.3.579.2. 727 1977 Unknown [id number] 2.16.840.1.164877.3.579.2. 727 1977 Unknown [id number] 2.16.840.1.287304.3.579.2. 727 1977 Unknown [id number] 2.16.840.1.432104.3.579.2. 727 1977 Unknown [id number] 2.16.840.1.143985.3.579.2. 727 1977 Unknown [id number] 2.16.840.1.217731.3.579.2. 727 1977 Unknown [id number] 2.16.840.1.354161.3.579.2. 727 1977 Unknown [id number] 2.16.840.1.259386.3.579.2. 727 1977 Unknown [id number] 2.16.840.1.763919.3.579.2. 727 1977 Unknown [id number] 2.16.840.1.993470.3.579.2. 727 1977 Unknown [id number] 2.16.840.1.602703.3.579.2. 727 1977 Unknown [id number] 2.16.840.1.183923.3.579.2. 727 1977 Unknown [id number] 2.16.840.1.405646.3.579.2. 727 1977 Unknown [id number] 2.16.840.1.823481.3.579.2. 727 1977 Unknown [id number] 2.16.840.1.797324.3.579.2. 176 1977 Unknown [id number] 2.16.840.1.630602.3.579.2. 176 1977 Unknown [id number] 2.16.840.1.356163.3.579.2. 1244 1977 Unknown [id number] 2.16.840.1.317561.3.579.2. 1244 1977 Unknown [id number] 2.16.840.1.837039.3.579.2. 1244 1977 Unknown [id number] 2.16.840.1.566198.3.579.2. 1244 1977 Unknown [id number] 2.16.840.1.945271.3.579.2. 1244 1977 Unknown [id number] 2.16.840.1.109740.3.579.2. 1244 1977 Unknown [id number] 2.16.840.1.493788.3.579.2. 1244 1977 Unknown [id number] 2.16.840.1.575232.3.579.2. 1244 1977 Unknown [id number] 2.16.840.1.426458.3.579.2. 1244 1977 Unknown [id number] 2.16.840.1.602633.3.579.2. 1244 1977 Unknown [id number] 2.16.840.1.000879.3.579.2. 1244 1977 Unknown [id number] 2.16.840.1.904248.3.579.2. 1244 1977 Unknown [id number] 2.16.840.1.218708.3.579.2. 1244 1977 Unknown [id number] 2.16.840.1.255818.3.579.2. 1244 1977 Unknown [id number] 2.16.840.1.164299.3.579.2. 1244 1977 Unknown [id number] 2.16.840.1.130992.3.579.2. 12403-25-1957 Medicaid [id number] 03-25-1957 Self-pay [id number] Medicaid [facility] [id number] Private Health Insurance [facility] Plan [id number] Private Health Insurance [employer] [id number] Unknown [id number] .0.1.706079.19 Unknown COVID19 [facility] Fund [id number] Unknown [id number] 2.840.1.834764.3.579.2. 246 Unknown [id number] 2.840.1.474516.3.579.2. 246 Unknown [id number] 2.840.1.024848.3.579.2. 246 Unknown [id number] 2.840.1.704289.3.579.2. 246 Unknown [id number] 2.16840.1.416245.3.579.2. 531 Unknown [id number] 2.16840.1.532158.3.579.2. 531 Unknown [id number] 2.16.840.1.746095.3.579.2. 531 Unknown [id number] 2.16.840.1.058059.3.579.2. 531 Unknown [id number] 2.16.840.1.629243.3.579.2. 531 Unknown [id number] 2.16.840.1.241868.3.579.2. 531 Unknown [id number] 2.16840.1.424409.3.579.2. 531 Unknown [id number] 2.16.840.1.392013.3.579.2. 531 Unknown [id number] 2.16.840.1.695386.3.579.2. 531 Unknown [id number] 2.16.840.1.839358.3.579.2. 531 Unknown [id number] 2.16.840.1.668331.3.579.2. 531 Unknown [id number] 2.16.840.1.080122.3.579.2. 531 Unknown [id number] 2.16.840.1.116691.3.579.2. 531 Unknown [id number] 2.16.840.1.303210.3.579.2. 531 Unknown [id number] 2.16.840.1.382809.3.579.2. 531 Unknown [id number] 2.16.840.1.496993.3.579.2. 531 Unknown [id number] 2.16.840.1.621840.3.579.2. 531 Unknown [id number] 2.16.840.1.492147.3.579.2. 531 Unknown [id number] 2.16.840.1.373607.3.579.2. 531 Unknown [id number] 2.16.840.1.747677.3.579.2. 531 Unknown [id number] 2.16.840.1.897421.3.579.2. 531 Unknown [id number] 2.16.840.1.176098.3.579.2. 531 Unknown [id number] 2.16.840.1.432086.3.579.2. 531 Unknown [id number] 2.16.840.1.097260.3.579.2. 531 Unknown [id number] 2.16.840.1.747229.3.579.2. 531 Unknown [id number] 2.16.840.1.369178.3.579.2. 531 Unknown [id number] 2.16.840.1.129671.3.579.2. 531 Unknown [id number] 2.16.840.1.602977.3.579.2. 531 Unknown [id number] 2.16.840.1.752530.3.579.2. 531 Unknown [id number] 2.16.840.1.120793.3.579.2. 531 Unknown [id number] 2.16.840.1.389745.3.579.2. 531 Unknown [id number] 2.16.840.1.958183.3.579.2. 531 Unknown [id number] 2.16.840.1.112067.3.579.2. 531 Unknown [id number] 2.16.840.1.409067.3.579.2. 531 Unknown [id number] 2.16.840.1.746331.3.579.2. 531 Unknown [id number] 2.16.840.1.931188.3.579.2. 531 Unknown [id number] 2.16.840.1.686249.3.579.2. 531 Unknown [id number] 2.16.840.1.522742.3.579.2. 531 Unknown [id number] 2.16.840.1.879499.3.579.2. 531 Unknown [id number] 2.16.840.1.009112.3.579.2. 531 Unknown [id number] 2.16.840.1.706178.3.579.2. 531 Unknown [id number] 2.16.840.1.362023.3.579.2. 531 Unknown [id number] 2.16.840.1.687874.3.579.2. 531 Unknown [id number] 2.16.840.1.839993.3.579.2. 531 Unknown [id number] 2.16.840.1.705505.3.579.2. 531 Social History Date Type Detail Facility Tobacco Current, Cigaret yolie, 10 per day. [facility] Other Comment on above: 10 cigs per day every day smoker Start: 01-15-2023 End: 10-30-2023 Sex Assigned At Female [facility] Other Start: 11-13-2021 End: 10-19-2023 Tobacco smoking status NHIS Smoker (finding) [facility] Start: 1975 Sex Assigned At Female [facility] Tobacco smoking status No Smoking Status Entered [facility] Start: 01-30-2014 End: 12-04-2022 Tobacco smoking status NHIS Smokes tobacco daily [facility] History of tobacco use Cigarette Smoker [facility] Start: 12-04-2022 End: 10-30-2023 Cigarettes smoked current (pack per day) - Reported 0.5 [facility] Start: 12-04-2022 End: 07-26-2023 Tobacco use and exposure Smokeless tobacco non-user [facility] Start: 1975 Sex Assigned At Not on file [facility] Start: 12-21-2022 Tobacco smoking status NHIS Never smoked tobacco (finding) [facility] Start: 01-15-2023 Alcohol intake Ex-drinker (finding) [facility] Work Phone: Start: 01-05-2023 End: 08-27-2023 Exposure to SARS-CoV-2 (event) Not sure [facility] Start: 01-22-2023 End: 08-27-2023 Alcohol intake Current drinker of alcohol (finding) [facility] Work Phone: Start: 01-22-2023 Alcohol Comment [address] [facility] Work Phone: Start: 01-22-2023 End: 09-17-2023 Tobacco smoking status Heavy tobacco smoker (finding) [facility] Tobacco smoking status Never [facility] Start: 08-21-2023 Gender identity Identifies as female gender (finding) [facility] Work Phone: Start: 01-31-2014 End: 10-30-2023 Alcohol intake Current non-drinker of alcohol (finding) [facility] How often to you hav e a drink containing alcohol? Never BON Droplr NEGATED: Highlighted row [facility] Medical Equipment Procedure Code Equipment Code Equipment Origin al Text Equipment Identifier Dates Kellee Ponce - [id number] - [id number] Start: 08-21-2023 Goals Date Patient Goal Desired Activity /State Functional Status Date Assessment Result Facility 10-30-2023 Functional Status N/A [facility] 10-26-2023 Functional Status N/A [facility] 10-04-2023 Functional Status N/A [facility] 09-25-2023 Functional Status N/A [facility] 09-21-2023 Functional Status N/A [facility] 09-20-2023 Functional Status N/A [facility] 09-17-2023 Functional Status N/A [facility] 09-09-2023 Functional Status N/A [facility] 09-06-2023 Functional Status N/A [facility] 09-02-2023 Functional Status N/A [facility] 08-30-2023 Functional Status N/A [facility] 08-15-2023 Functional Status N/A [facility] 08-14-2023 Functional Status N/A [facility] 08-12-2023 Functional Status N/A [facility] 08-05-2023 Functional Status N/A [facility] 08-02-2023 Functional Status N/A [facility] 07-31-2023 Functional Status N/A [facility] 07-26-2023 Functional Status N/A [facility] 07-17-2023 Functional Status N/A [facility] 07-15-2023 Functional Status N/A [facility] 07-14-2023 Functional Status N/A [facility] 07-11-2023 Functional Status N/A [facility] 07-06-2023 Functional Status N/A [facility] 06-29-2023 Functional Status N/A [facility] 06-27-2023 Functional Status N/A [facility] 06-24-2023 Functional Status N/A [facility] 06-22-2023 Functional Status N/A [facility] 06-15-2023 Functional Status N/A [facility] 06-11-2023 Functional Status N/A [facility] 06-03-2023 Functional Status N/A [facility] 05-31-2023 Functional Status N/A [facility] 05-26-2023 Functional Status N/A [facility] 05-24-2023 Functional Status N/A [facility] 05-16-2023 Functional Status N/A [facility] 05-14-2023 Functional Status N/A [facility] 05-12-2023 Functional Status N/A [facility] 05-11-2023 Functional Status N/A [facility] 05-08-2023 Functional Status N/A [facility] 04-26-2023 Functional Status N/A [facility] 04-22-2023 Functional Status N/A [facility] 04-11-2023 Functional Status N/A [facility] 04-10-2023 Functional Status N/A [facility] 04-05-2023 Functional Status N/A [facility] 04-02-2023 Functional Status N/A [facility] 03-26-2023 Functional Status N/A [facility] 03-23-2023 Functional Status N/A [facility] 03-20-2023 Functional Status N/A [facility] 03-11-2023 Functional Status N/A [facility] 02-12-2023 Functional Status N/A [facility] 02-07-2023 Functional Status N/A [facility] 01-29-2023 Functional Status N/A [facility] 01-22-2023 Functional Status N/A [facility] 01-14-2023 Functional Status N/A [facility] 01-12-2023 Functional Status N/A [facility] 01-10-2023 Functional Status N/A [facility] 01-04-2023 Functional Status N/A [facility] 01-02-2023 Functional Status N/A [facility] 12-26-2022 Functional Status N/A [facility] 12-23-2022 Functional Status N/A [facility] 12-18-2022 Functional Status N/A [facility] 12-13-2022 Functional Status N/A [facility] 12-12-2022 Functional Status N/A [facility] 12-07-2022 Functional Status N/A [facility] 09-04-2022 Functional Status N/A [facility] Clinical Notes 02-15-2021 to 10-30-2023 Joan Dumont - 10/30/2023 7:19 PM EDT Note Date & Type Note Facility 10-30-2023 History of Presen t illness Narrative Need lumbar spine x-ray to clear pt for MRI to make sure all stimulator and internal wires are completely removed documented in this encounter [facility] 10-30-2023 Hospital Discharg e instructions Patient Education 10/30/2023 12:55:31 Incision Care, Adult Incision Care, Adult An incision is a surgical cut that is made through your skin. Most incisions are closed after a surgical procedure. Your incision may be closed with stitches (sutures), yue, skin glue, or adhesive strips. You may need to return to your health care provider to have sutures or yue removed. This may occur several days or several weeks after your surgery. Until then, the incision needs to be cared for properly to prevent infection. Follow instructions from your health care provider about how to care for your incision. Supplies needed: Soap, water, and a clean hand towel. Wound cleanser. A clean bandage (dressing), if needed. Cream or ointment, if told by your health care provider. Clean gauze. How to care for your incision Cleaning the incision Ask your health care provider how to clean the incision. This may include: Wearing medical gloves. Using mild soap and water, or wound cleanser. Using a clean gauze to pat the incision dry after cleaning it. Dressing changes Wash your hands with soap and water for at least 20 seconds before and after you change the dressing. If soap and water are not available, use hand manager product. Do not use disinfectants or antiseptics, such as rubbing alcohol, to clean open wounds unless told by your health care provider. Change your dressing as told by your health care provider. Leave sutures, yue, skin glue, or adhesive strips in place. These skin closures may need to stay in place for 2 weeks or longer. If adhesive strip edges start to loosen and curl up, you may trim the loose edges. Do not remove adhesive strips completely unless your health care provider tells you to do that. Apply cream or ointment. Do this only as told by your health care provider. Cover the incision with a clean dressing. Ask your health care provider when you can start to leave the incision uncovered. Checking for infection Check your incision area every day for signs of infection. Check for: More redness, swelling, or pain. More fluid or blood. New warmth, hardness, or a rash that develops along the incision. Pus or a bad smell. Follow these instructions at home Medicines Take otvl-xqp-doacysx and prescription medicines only as told by your health care provider. If you were prescribed an antibiotic medicine, cream, or ointment, take or apply it as told by your health care provider. Do not stop using the antibiotic even if your condition improves. Eating and drinking Eat a diet that includes protein, vitamin A, vitamin C, and other nutrient-rich foods to help the wound heal. ?Foods rich in protein include meat, fish, eggs, dairy, beans, nuts, and protein supplement drinks. ?Foods rich in vitamin A include carrots and dark green, leafy vegetables. ?Foods rich in vitamin C include citrus fruits, tomatoes, broccoli, and peppers. Drink enough fluid to keep your urine pale yellow. General instructions Do not take baths, swim, use a hot tub, or do anything that would put the incision underwater until your health care provider approves. Ask your health care provider if you may take showers. You may only be allowed to take sponge baths. Limit movement around your incision to promote healing. ?Avoid straining, lifting, or exercising for the first 2 weeks after your procedure, or for as long as told by your health care provider. ?Return to your normal activities as told by your health care provider. Ask your health care provider what activities are safe for you. Do not scratch, pick, or scrub the incision. Keep it covered as told by your health care provider. Protect your incision from the sun when you are outside for the first 6 months, or for as long as told by your health care provider. Cover up the scar area or apply sunscreen that has an SPF of at least 30. Do not use any products that contain nicotine or tobacco, such as cigarettes, e-cigarettes, and chewing tobacco. These can delay incision healing. If you need help quitting, ask your health care provider. Keep all follow-up visits. This is important. Contact a health care provider if: You have any of these signs of infection: ?More redness, swelling, or pain around your incision. ?More fluid or blood coming from your incision. ?New warmth or hardness around your incision. ?Pus or a bad smell coming from your incision. ?A rash that develops along the incision. You feel nauseous or you vomit. You are dizzy. Your sutures, yue, skin glue, or adhesive strips come undone. Your wound gets bigger. You have a fever. Get help right away if: Your incision bleeds through the dressing and the bleeding does not stop with gentle pressure. The edges of your incision open up and separate. These symptoms may represent a serious problem that is an emergency. Do not wait to see if the symptoms will go away. Get medical help right away. Call your local emergency services (911 in the [place] Do not drive yourself to the hospital. Summary Follow instructions from your health care provider about how to care for your incision. Wash your hands with soap and water for at least 20 seconds before and after you change the dressing. If soap and water are not available, use hand manager product. Check your incision area every day for signs of infection. Keep all follow-up visits. This is important. This information is not intended to replace advice given to you by your health care provider. Make sure you discuss any questions you have with your health care provider. Document Revised: 06/12/2021 Document Reviewed: 06/12/2021 [employer] Patient Education 2022 [employer]. 10/30/2023 12:55:31 Chronic Back Pain Chronic Back Pain When [...] told by your health care provider. Use the heat source that your health [...] pull them backward. Do not sit or brinell tester one place for long periods of time. Take brief periods of rest throughout the day. This will reduce your pain. Resting in a lying or standing position is usually better than sitting to rest. When you are resting for longer periods, mix in some mild activity or stretching between periods of rest. This will help to [...] prescription pain medicine, or muscle relaxants. Take docy-ion-vhgqszc and prescription medicines only as told by your health care provider. Ask your health care provider if the medicine prescribed to you: ?Requires you to avoid driving or using machinery. ?Can cause constipation. You may need to take these actions to prevent or treat constipation: ?Drink enough fluid to keep your urine pale yellow. ?Take amel-vtb-ekrpsgj or prescription medicines. ?Eat foods that are high in fiber, such as beans, whole grains, and fresh fruits and vegetables. ?Limit foods that are high in fat and processed sugars, such as fried or sweet foods. General instructions Do not use any products that contain nicotine or tobacco, such as cigarettes, e-cigarettes, and chewing tobacco. If you need help [...] some mild activity or stretching between periods of rest. This will help to prevent stiffness and pain. This information is not intended to replace advice given to you by your health care provider. Make sure you discuss any questions you have with your health care provider. Document Revised: 04/20/2020 Document Reviewed: 04/20/2020 [employer] Patient Education 2022 [employer]. Follow Up Care 10/30/2023 12:12:04 With:Cheyanne Rosas Address: [address] [place] [address] Business (1) When:11/02/2023 12:41:56 Comments:Return to the emergency room if your pain gets worse, fever or any new symptoms [facility] 10-30-2023 Evaluation + Plan note Extrac lisa from: Title:ED Note Author:Annette Watkins, Balbina Celis te:10/30/23 1. Chronic lower back pain ( M54.50: Low back pain, unspecified) 2. Visit for wound check (Z51.89: Encounter for other specified aftercare) Other chronic pain (G89.29: Other chronic pain) Orders: acetaminophen-oxycodone, 1 tab(s), Tab, Oral, Once, Stop date 10/30/23 12:29:00 EDT, STAT, Start date 10/30/23 12:29:00 EDT ketorolac, 60 mg = 2 mL, Injection, IntraMuscular, Once, Stop date 10/30/23 12:29:00 EDT, STAT, Start date 10/30/23 12:29:00 EDT, 10/30/23 12:29:00 EDT Future Appointments Appointment Date:11/13/2023 08:00:00 AM Scheduled Provider:Domenic Sher DO Location:.[facility] Appointment Type:Pain Management - Follow Up (FT) Future Scheduled Tests Laboratory* TSH With T4fr Reflex 07/17/23 * Urinalysis with Micro 07/17/23 * Lipid Panel 07/17/23 * Drug Screen Urine 07/17/23 Radiology* MA Mamm Screen w/CAD if perf and 3D Kenan 07/17/23 [facility] 08-03-2024 Evaluation + Plan noteExtracted from: Title:ED Note Author:Pedro Pablo Fletcher DO Date :10/26/23 Candidal intertrigo (B37.2: Candidiasis of skin and nail) Orders: ketoconazole topical, 1 kennedi, Topical, BID for 28 day(s), 60 gm, Refill(s) 0, [id number], 160, cm, 10/26/23 2:47:00 EDT, Height/Length Dosing, 116.7, kg, 10/26/23 2:47:00 EDT, Weight Dosing Future Appointments Appointment Date:11/13/2023 08:00:00 AM Scheduled Provider:Domenic Sher DO Location:[facility] Appointment Type:Pain Management - Follow Up (FT) Future Scheduled Tests Laboratory* TSH With T4fr Reflex 07/17/23 * Urinalysis with Micro 07/17/23 * Lipid Panel 07/17/23 * Drug Screen Urine 07/17/23 Radiology* MA Mamm Screen w/CAD if perf and 3D Kenan 07/17/23 [facility] 08-03-2024 Hospital Discharge instructions Patient Education 10/26/2023 03:09:30 Intertrigo Intertrigo Intertrigo is skin irritation or inflammation (dermatitis) that occurs when folds of skin rub together. The irritation can cause a rash and make skin raw and itchy. This condition most commonly occurs in the skin folds of these areas: Toes. Armpits. Groin. Under the belly. Under the breasts. Buttocks. Intertrigo is not passed from person to person (is not contagious). What are the causes? This condition is caused by heat, moisture, rubbing (friction), and not enough air circulation. Thecondition can be made worse by: Sweat. Bacteria. A fungus, such as yeast. What increases the risk? This condition is more likely to occur if you have moisture in your skin folds. You are more likelyto develop this condition if you: Have diabetes. Are overweight. Are not able to move around or are not active. Live in a warm and moist climate. Wear splints, braces, or other medical devices. Are not able to control your bowels or bladder (have incontinence). What are the signs or symptoms? Symptoms of this condition include: A pink or red skin rash in the skin fold or near the skin fold. Raw or scaly skin. Itchiness. A burning feeling. Bleeding. Leaking fluid. A bad smell. How is this diagnosed? This condition is diagnosed with a medical history and physical exam. You may also have a skin swabto test for bacteria or a fungus. How is this treated? This condition may be treated by: Cleaning and drying your skin. Taking an antibiotic medicine or using an antibiotic skin cream for a bacterial infection. Using an antifungal cream on your skin or taking pills for an infection that was caused by a fungus, such as yeast. Using a steroid ointment to relieve itchiness and irritation. the skin fold with a clean cotton cloth to absorb moisture and allow air to flow into the area. Follow these instructions at home: Keep the affected area clean and dry. Do not scratch your skin. Stay in a cool environment as much as possible. Use an air conditioner or fan, if available. Apply hfsy-nsy-gieiahp and prescription medicines only as told by your health care provider. If you were prescribed an antibiotic medicine, use it as told by your health care provider. Do not stop using the antibiotic even if your condition improves. Keep all follow-up visits as told by your health care provider. This is important. How is this prevented? Maintain a healthy weight. Take care of your feet, especially if you have diabetes. Foot care includes: ?Wearing shoes that fit well. ?Keeping your feet dry. ?Wearing clean, breathable socks. Protect the skin around your groin and buttocks, especially if you have incontinence. Skin protection includes: ?Following a regular cleaning routine. ?Using skin protectant creams, powders, or ointments. ?Changing protection pads frequently. Do not wear tight clothes. Wear clothes that are loose, absorbent, and made of cotton. Wear a bra that gives good support, if needed. Shower and dry yourself well after activity or exercise. Use a chairman & chief executive officer on a cool setting to dry between skin folds, especially after you bathe. If you have diabetes, keep your blood sugar under control. Contact a health care provider if: Your symptoms do not improve with treatment. Your symptoms get worse or they spread. You notice increased redness and warmth. You have a fever. Summary Intertrigo is skin irritation or inflammation (dermatitis) that occurs when folds of skin rub together. This condition is caused by heat, moisture, rubbing (friction), and not enough air circulation. This condition may be treated by cleaning and drying your skin and with medicines. Apply zsps-ehx-hcivryk and prescription medicines only as told by your health care provider. Keep all follow-up visits as told by your health care provider. This is important. This information is not intended to replace advice given to you by your health care provider. Make sure you discuss any questions you have with your health care provider. Document Revised: 05/23/2022 Document Reviewed: 12/25/2021 [employer] Patient Education 2022 [employer]. Follow Up Care 10/26/2023 02:36:10 With:Cheyanne Rosas Address: [address], [place] [phone] Business (1) When:10/31/2023 [facility] 07-13-2024 NoteEducation Materials Dermatology Wound Dehiscence Wound dehiscence is when a cut from surgery (an incision) opens up and does not heal like it should. This problem usually happens 7?10 days after surgery. You may have bleeding from the cut. You may also have pain or a fever. This condition should be treated early. What are the causes? Common causes of this condition include: ? Stretching of the wound area by: ? Lifting. ? Vomiting. ? Coughing hard. ? Straining while pooping (having a bowel movement). ? Wound infection. ? Early removal of stitches (sutures) or the stitches breaking or coming loose. What increases the risk? The following factors may make you more likely to get this condition: ? Being very overweight (obese). ? Lung disease. ? Smoking. ? Not eating enough healthy foods (poor nutrition). ? Germs getting in the wound during surgery. ? Medical problems that make it harder to heal, such as diabetes. ? Taking certain medications. What are the signs or symptoms? Symptoms of this condition include: ? Bleeding or leaking from the wound. ? Pain. ? Fever. ? The wound breaking open. How is this treated? This condition may be treated by: ? Keeping the wound clean. ? Having surgery to fix the wound. ? Taking antibiotic medicine to treat or prevent infection. ? Taking medicines to reduce pain and swelling. Follow these instructions at home: Medicines ? Take zfof-ztf-crtsnxa and prescription medicines only as told by your doctor. ? If told by your doctor, take pain medicine 30 minutes before changing a bandage (dressing). This may help take away some of the pain. ? If you were prescribed an antibiotic medicine, take it as told by your doctor. Do not stop using the antibiotic even if you start to feel better. Wound care ? Follow instructions from your doctor about how to take care of your wound. Make sure you: ? Wash your hands with soap and water before you change your bandage or wash the wound area. If youcannot use soap and water, use hand manager product. ? Wash your wound with mild soap and water 2 times a day, or as told. Rinse off the soap. Pat the area dry with a clean towel. Do not rub the wound. ? Change bandages as told by your doctor. ? Do not pick or scratch at the wound. ? Check your wound area every day for signs of infection. Check for: ? More redness, swelling, or pain around the wound. ? More fluid or blood. ? Warmth. ? Pus or a bad smell. Activity ? Avoid exercises that make you sweat or could stretch your wound. ? Do not lift anything that is heavier than 10 lb (4.5 kg) until the wound is healed or until your doctor says that it is safe. General instructions ? Do not take baths, swim, or use a hot tub until your doctor approves. Ask your doctor if you may take showers. You may only be allowed to take sponge baths. ? Keep all follow-up visits as told by your doctor. This is important. Contact a doctor if: ? Your wound does not seem to be healing right. ? You have a fever. Get help right away if: ? You have more redness, swelling, or pain around your wound. ? You have more fluid coming from your wound. ? Your wound, or the area around it, feels warm or hard when you touch it. ? You have pus or a bad smell coming from your wound. ? More of the wound breaks open. ? You have red streaks spreading from your wound. ? You have a lot of bleeding from your wound. Summary ? Wound dehiscence is when a cut from surgery (an incision) opens up and does not heal like it should. ? Follow instructions from your doctor about how to take care of your wound. ? Check your wound area every day for signs of infection. These signs can be redness, swelling, pain, fluid, blood, warmth, pus, or a bad smell. ? If you were prescribed an antibiotic medicine, take it as told by your doctor. Do not stop using it even if you start to feel better. ? Contact a doctor if your wound does not seem to be healing right. This information is not intended to replace advice given to you by your health care provider. Make sure you discuss any questions you have with your health care provider. Document Revised: 03/02/2020 Document Reviewed: 03/02/2020 [employer] Patient Education ? 2022 [employer].[id number] Note Pt ambulator back to ED RM 6 C/O insicioin pain. Pt was in the ED recently for the same complaint. Pt had a procedure done on her lower back. Wound is red, inflamed and little bit of drainage noted. Pt was prescribed antibiotics and took all of the prescribed antibiotic. Pt is A/Ox4 call light within reach [facility]07-12-2024 Hospital Discharge instructions Patient Education 10/04/2023 15:44:00 Contact Dermatitis, Cdnv-aa-Koxy Contact Dermatitis Dermatitis is redness, soreness, and swelling (inflammation) of the skin. Contact dermatitis is a reaction to something that touches the skin. There are two types of contact dermatitis: Irritant contact dermatitis. This happens when something bothers (irritates) your skin, like soap. Allergic contact dermatitis. This is caused when you are exposed to something that you are allergicto, such as poison domonique. What are the causes? Common causes of irritant contact dermatitis include: ?Makeup. ?Soaps. ?Detergents. ?Bleaches. ?Acids. ?Metals, such as nickel. Common causes of allergic contact dermatitis include: ?Plants. ?Chemicals. ?Jewelry. ?Latex. ?Medicines. ?Preservatives in products, such as clothing. What increases the risk? Having a job that exposes you to things that bother your skin. Having asthma or eczema. What are the signs or symptoms? Symptoms may happen anywhere the irritant has touched your skin. Symptoms include: Dry or flaky skin. Redness. Cracks. Itching. Pain or a burning feeling. Blisters. Blood or clear fluid draining from skin cracks. With allergic contact dermatitis, swelling may occur. This may happen in places such as the eyelids, mouth, or genitals. How is this treated? This condition is treated by checking for the cause of the reaction and protecting your skin. Treatment may also include: ?Steroid creams, ointments, or medicines. ?Antibiotic medicines or other ointments, if you have a skin infection. ?Lotion or medicines to help with itching. ?A bandage (dressing). Follow these instructions at home: Skin care Moisturize your skin as needed. Put cool cloths on your skin. Put a baking soda paste on your skin. Stir water into baking soda until it looks like a paste. Do not scratch your skin. Avoid having things rub up against your skin. Avoid the use of soaps, perfumes, and dyes. Medicines Take or apply mubf-gyo-tbxbkuc and prescription medicines only as told by your doctor. If you were prescribed an antibiotic medicine, take or apply it as told by your doctor. Do not stopusing it even if your condition starts to get better. Bathing Take a bath with: ?Epsom salts. ?Baking soda. ?Colloidal oatmeal. Bathe less often. Bathe in warm water. Avoid using hot water. Bandage care If you were given a bandage, change it as told by your doctor. Wash your hands with soap and water before and after you change your bandage. If soap and water arenot available, use hand manager product. General instructions Avoid the things that caused your reaction. If you do not know what caused it, keep a journal. Write down: ?What you eat. ?What skin products you use. ?What you drink. ?What you wear in the area that has symptoms. This includes jewelry. Check the affected areas every day for signs of infection. Check for: ?More redness, swelling, or pain. ?More fluid or blood. ?Warmth. ?Pus or a bad smell. Keep all follow-up visits as told by your doctor. This is important. Contact a doctor if: You do not get better with treatment. Your condition gets worse. You have signs of infection, such as: ?More swelling. ?Tenderness. ?More redness. ?Soreness. ?Warmth. You have a fever. You have new symptoms. Get help right away if: You have a very bad headache. You have neck pain. Your neck is stiff. You throw up (vomit). You feel very sleepy. You see red streaks coming from the area. Your bone or joint near the area hurts after the skin has healed. The area turns darker. You have trouble breathing. Summary Dermatitis is redness, soreness, and swelling of the skin. Symptoms may occur where the irritant has touched you. Treatment may include medicines and skin care. If you do not know what caused your reaction, keep a journal. Contact a doctor if your condition gets worse or you have signs of infection. This information is not intended to replace advice given to you by your health care provider. Make sure you discuss any questions you have with your health care provider. Document Revised: 12/25/2021 Document Reviewed: 12/25/2021 [employer] Patient Education 2022 [employer] 10/04/2023 15:44:00 Acute Back Pain, Adult Acute Back Pain, [...] home: Managing pain, stiffness, and swelling Take qntu-yoj-smovnmh and prescription medicines only as told by [...] each day. Do not sit, drive, or brinell tester one place for more than 30 minutes [...] put less stress on your back. Take acdb-jga-cayxneh and prescription medicines only as told by your health care provider, and apply heat or ice as told. This information is not intended to replace advice given to you by your health care provider. Make sure you discuss any questions you have with your health care provider. Document Revised: 06/02/2021 Document Reviewed: 06/02/2021 [employer] Patient Education 2022 [employer]. 10/04/2023 15:44:00 Wound Dehiscence, Lptq-dn-Bedb Wound Dehiscence Wound dehiscence is when a cut from surgery (an incision) opens up and does not heal like it should. This problem usually happens 7 10 days after surgery. You may have bleeding from the cut. You may also have pain or a fever. This condition should be treated early. What are the causes? Common causes of this condition include: Stretching of the wound area by: ?Lifting. ?Vomiting. ?Coughing hard. ?Straining while pooping (having a bowel movement). Wound infection. Early removal of stitches (sutures) or the stitches breaking or coming loose. What increases the risk? The following factors may make you more likely to get this condition: Being very overweight (obese). Lung disease. Smoking. Not eating enough healthy foods (poor nutrition). Germs getting in the wound during surgery. Medical problems that make it harder to heal, such as diabetes. Taking certain medications. What are the signs or symptoms? Symptoms of this condition include: Bleeding or leaking from the wound. Pain. Fever. The wound breaking open. How is this treated? This condition may be treated by: Keeping the wound clean. Having surgery to fix the wound. Taking antibiotic medicine to treat or prevent infection. Taking medicines to reduce pain and swelling. Follow these instructions at home: Medicines Take eadr-yfe-lbufrdw and prescription medicines only as told by your doctor. If told by your doctor, take pain medicine 30 minutes before changing a bandage (dressing). This may help take away some of the pain. If you were prescribed an antibiotic medicine, take it as told by your doctor. Do not stop using the antibiotic even if you start to feel better. Wound care Follow instructions from your doctor about how to take care of your wound. Make sure you: ?Wash your hands with soap and water before you change your bandage or wash the wound area. If you cannot use soap and water, use hand manager product. ?Wash your wound with mild soap and water 2 times a day, or as told. Rinse off the soap. Pat the area dry with a clean towel. Do not rub the wound. ?Change bandages as told by your doctor. Do not pick or scratch at the wound. Check your wound area every day for signs of infection. Check for: ?More redness, swelling, or pain around the wound. ?More fluid or blood. ?Warmth. ?Pus or a bad smell. Activity Avoid exercises that make you sweat or could stretch your wound. Do not lift anything that is heavier than 10 lb (4.5 kg) until the wound is healed or until your doctor says that it is safe. General instructions Do not take baths, swim, or use a hot tub until your doctor approves. Ask your doctor if you may take showers. You may only be allowed to take sponge baths. Keep all follow-up visits as told by your doctor. This is important. Contact a doctor if: Your wound does not seem to be healing right. You have a fever. Get help right away if: You have more redness, swelling, or pain around your wound. You have more fluid coming from your wound. Your wound, or the area around it, feels warm or hard when you touch it. You have pus or a bad smell coming from your wound. More of the wound breaks open. You have red streaks spreading from your wound. You have a lot of bleeding from your wound. Summary Wound dehiscence is when a cut from surgery (an incision) opens up and does not heal like it should. Follow instructions from your doctor about how to take care of your wound. Check your wound area every day for signs of infection. These signs can be redness, swelling, pain,fluid, blood, warmth, pus, or a bad smell. If you were prescribed an antibiotic medicine, take it as told by your doctor. Do not stop using iteven if you start to feel better. Contact a doctor if your wound does not seem to be healing right. This information is not intended to replace advice given to you by your health care provider. Make sure you discuss any questions you have with your health care provider. Document Revised: 03/02/2020 Document Reviewed: 03/02/2020 [employer] Patient Education 2022 [employer]. Follow Up Care 10/04/2023 14:32:53 With:Cheyanne Rosas Address: [address], [address] [place] [phone] Business (1) When:10/07/2023 15:32:21 Comments:Call Dr for diagnosis based follow up [facility]07-04-2024 NoteEducation Materials Caregiving Pain Medicine Instructions You may need pain medicine after an injury or illness. Two common types of pain medicine are: ? Non-opioid pain medicine. This includes NSAIDs. ? Opioid pain medicine. These may be called opioids. Pain medicine may not make all of your pain go away. It should make you comfortable enough to move,breathe, and do normal activities. How can pain medicines affect me? Pain medicines can cause side effects such as: ? Vomiting or feeling like you may vomit. ? Belly pain. Opioids can cause other side effects, such as: ? Trouble pooping (constipation). ? Feeling very sleepy. ? Confusion. ? Trouble breathing. ? Addiction to opioids. This means that you will take the medicine even though it hurts your health. Taking opioids for longer than 3 days raises your risk of these side effects. Taking opioids for a long time can affect how well you can do daily tasks. It also puts you at riskfor: ? Car crashes. ? Depression. ? Suicide. ? Heart attack. If you do not take pain medicines correctly, you may be at risk for: ? Liver problems. ? Kidney problems. ? Taking too much of the medicine (overdose). This can lead to . What actions can I take to lower my risk of problems? Know your treatment plan Talk about your treatment plan with your doctor. Both you and your doctor should agree on how you should be treated. ? Talk about the goals of your treatment, including: ? How much pain you might expect to have. ? How you will manage the pain. ? Ask your doctor if you can see other doctors who can treat your pain without using medicine. Thiscan include physical therapy and counseling. ? Talk about the risks and benefits of taking these medicines for your condition. ? Tell your doctor about the amount of medicines you take and about any use of drugs or alcohol. ? Get your pain medicine prescriptions from only one doctor. ? Keep all follow-up visits. Take your medicine as told ? Take pain medicine exactly as told by your doctor. Take it only when you need it. ? If your pain is not too bad, you may take less medicine if your doctor allows. ? If you have no pain, do not take the medicine unless your doctor tells you to take it. ? If your pain is very bad, do not take more medicine than your doctor tells you to take. Call yourdoctor to know what to do. ? If your pain medicine has acetaminophen in it, do not take any other acetaminophen while you are taking this medicine. Too much can damage the liver. ? Write down the times when you take your pain medicine. Look at the times before you take your next dose. ? Take other htie-uhd-pdkcjor or prescription medicines only as told by your doctor. Avoid certain activities While you are taking prescription pain medicine, and for 8 hours after your last dose: ? Do not drive. ? Do not use machinery. ? Do not use power tools. ? Do not sign legal documents. ? Do not drink alcohol. ? Do not take sleeping pills. ? Do not take care of children by yourself. ? Do not do any activities that involve climbing or being in high places. ? Do not go to a [place], river, ocean, spa, or swimming pool unless an adult is nearby who can monitor and help you. Keep pets and people safe ? Store your medicine as told by your doctor. Keep it where children and pets cannot reach it. ? Do not share your pain medicine with anyone. ? Do not save unused pills. If you have unused pills, you can: ? Bring them to a take-back program. ? Bring them to a pharmacy that takes back unused pills. ? Throw them in the trash. Check the medicine label or package insert to see if it is safe to throwit out. If it is safe, take the medicine out of the container. Mix it with something that makes it unusable, such as pet waste. Then put the medicine in the trash. ? Flush them down the toilet only if this is safe to do. To find out: ? Check the label or package insert of your medicine. ? Read information given by the Food and Drug Administration website: fda.gov Treat or prevent constipation You may need to take these actions to prevent or treat constipation: ? Drink enough fluid to keep your pee (urine) pale yellow. ? Take gvha-hmy-sbwyynm or prescription medicines. ? Eat foods that are high in fiber. These include beans, whole grains, and fresh fruits and vegetables. ? Limit foods that are high in fat and sugar. These include fried or sweet foods. Contact a doctor if: ? Your medicine is not helping with your pain. ? You have a rash. ? You feel sick to your stomach. ? You throw up. ? You feel depressed. Get help right away if: ? You have trouble breathing. This means: ? Breathing that is slower than normal. ? Breathing that is more shallow than normal. ? You are confused. ? You are sleeping a lot, or you have trouble staying awake. ? Your skin (more content not included)...[id number] NotePt ambulatory back to ED RM 10, C/O lower back pain. Pt had a procedure down on the lower back at the [facility]. by Dr. Adams. 12/02 pain, the inscions is red, warm to touch. no fever. Pt stated she was not sent home on any antibiotics. Pt tried to call the hospital and was told to come to the ER. Pt is A/ox4 call light within reach. the incision is locate on her lower back to her butt crack. [facility]07-03-2024 Hospital Discharge instructions Patient Education 09/25/2023 13:47:46 Cellulitis, Adult Cellulitis, Adult Cellulitis is a skin infection. The infected area is usually warm, red, swollen, and tender. This condition occurs most often in the arms and lower legs. The infection can travel to the muscles, blood, and underlying tissue and become serious. It is very important to get treated for this condition. What are the causes? Cellulitis is caused by bacteria. The bacteria enter through a break in the skin, such as a cut, burn, insect bite, open sore, or crack. What increases the risk? This condition is more likely to occur in people who: Have a weak body defense system (immune system). Have open wounds on the skin, such as cuts, young, bites, and scrapes. Bacteria can enter the body through these open wounds. Are older than 60 years of age. Have diabetes. Have a type of long-lasting (chronic) liver disease (cirrhosis) or kidney disease. Are obese. Have a skin condition such as: ?Itchy rash (eczema). ?Slow movement of blood in the veins (venous stasis). ?Fluid buildup below the skin (edema). Have had radiation therapy. Use IV drugs. What are the signs or symptoms? Symptoms of this condition include: Redness, streaking, or spotting on the skin. Swollen area of the skin. Tenderness or pain when an area of the skin is touched. Warm skin. A fever. Chills. Blisters. How is this diagnosed? This condition is diagnosed based on a medical history and physical exam. You may also have tests, including: Blood tests. Imaging tests. How is this treated? Treatment for this condition may include: Medicines, such as antibiotic medicines or medicines to treat allergies (antihistamines). Supportive care, such as rest and application of cold or warm cloths (compresses) to the skin. Hospital care, if the condition is severe. The infection usually starts to get better within 1 2 days of treatment. Follow these instructions at home: Medicines Take cxjg-gad-sljhocp and prescription medicines only as told by your health care provider. If you were prescribed an antibiotic medicine, take it as told by your health care provider. Do notstop taking the antibiotic even if you start to feel better. General instructions Drink enough fluid to keep your urine pale yellow. Do not touch or rub the infected area. Raise (elevate) the infected area above the level of your heart while you are sitting or lying down. Apply warm or cold compresses to the affected area as told by your health care provider. Keep all follow-up visits as told by your health care provider. This is important. These visits letyour health care provider make sure a more serious infection is not developing. Contact a health care provider if: You have a fever. Your symptoms do not begin to improve within 1 2 days of starting treatment. Your bone or joint underneath the infected area becomes painful after the skin has healed. Your infection returns in the same area or another area. You notice a swollen bump in the infected area. You develop new symptoms. You have a general ill feeling (malaise) with muscle aches and pains. Get help right away if: Your symptoms get worse. You feel very sleepy. You develop vomiting or diarrhea that persists. You notice red streaks coming from the infected area. Your red area gets larger or turns dark in color. These symptoms may represent a serious problem that is an emergency. Do not wait to see if the symptoms will go away. Get medical help right away. Call your local emergency services (911 in the [place] Do not drive yourself to the hospital. Summary Cellulitis is a skin infection. This condition occurs most often in the arms and lower legs. Treatment for this condition may include medicines, such as antibiotic medicines or antihistamines. Take zzze-mfy-wzzwfsb and prescription medicines only as told by your health care provider. If you were prescribed an antibiotic medicine, do not stop taking the antibiotic even if you start to feel better. Contact a health care provider if your symptoms do not begin to improve within 1 2 days of startingtreatment or your symptoms get worse. Keep all follow-up visits as told by your health care provider. This is important. These visits letyour health care provider make sure that a more serious infection is not developing. This information is not intended to replace advice given to you by your health care provider. Make sure you discuss any questions you have with your health care provider. Document Revised: 12/20/2021 Document Reviewed: 12/21/2021 [employer]patch Patient Education 2022 [employer]. Follow Up Care 09/25/2023 11:29:17 With:Cheyanne Rosas [facility] [address] [facility] [place] [phone] Business (1) When:09/28/2023 13:36:08 Comments:Call Dr for diagnosis based follow up [facility]07-03-2024 Evaluation + Plan noteExtracted from: Title:ED Note Author:Landon Tidwell PA-C te:09/25/23 Cellulitis (L03.90: Cellulit is, unspecified) Post-operative complication (T81.9XXA: Unspecified complication of procedure, initial encounter) Orders: cephalexin, 500 mg = 1 cap(s), Oral, q6hr, X 7 day(s), # 28 cap(s), Refills(s) 0, Pharmacy: [id number], 160, cm, 09/25/23 11:43:00 EDT, Height/Length Dosing, 115.3, kg, 09/25/23 11:43:00 EDT, Weight Dosing morphine, 4 mg = 1 mL, Injection, IntraMuscular, Once, Stop date 09/25/23 12:06:00 EDT, STAT, Start date 09/25/23 12:06:00 EDT, 09/25/23 12:06:00 EDT sulfamethoxazole-trimethoprim, 1 tab(s), Oral, BID for 7 day(s), 14 tab(s), Refill(s) 0, [id number], 160, cm, 09/25/23 11:43:00 EDT, Height/Length Dosing, 115.3, kg, 09/25/23 11:43:00 EDT, Weight Dosing CT Spine Lumbar w/o Contrast Future Appointments Appointment Date:11/13/2023 08:00:00 AM Scheduled Provider:Domenic Sher DO Location:[facility] Appointment Type:Pain Management - Follow Up (FT) Future Scheduled Tests Laboratory* TSH With T4fr Reflex 07/17/23 * Urinalysis with Micro 07/17/23 * Lipid Panel 07/17/23 * Drug Screen Urine 07/17/23 Radiology* MA Mamm Screen w/CAD if perf and 3D Kenan 07/17/23 [facility]06-29-2024 Hospital Discharge instructions Patient Education 09/21/2023 12:23:40 Chronic Back Pain, Bnik-up-Ymnn Chronic Back Pain When back pain lasts [...] pull them backward. Do not sit or brinell tester one place for long periods of time. [...] prescription pain medicine, or muscle relaxants. Take hunb-imq-pbhbeeg and prescription medicines only as told by your doctor. Ask your doctor if the medicine prescribed to you: ?Requires you to avoid driving or using machinery. ?Can cause trouble pooping (constipation). You may need to take these actions to prevent or treat trouble pooping: ?Drink enough fluid to keep your pee (urine) pale yellow. ?Take nksx-yqk-dzdgyaz or prescription medicines. ?Eat foods that are [...] provider. Document Revised: 04/20/2020 Document Reviewed: 04/20/2020 [employer]patch Patient Education 2022 [employer]. Follow Up Care 09/21/2023 11:14:36 With:Cheyanne Rosas Address: [facility] [place] [phone] [facility] (1) When:09/24/2023 12:14:29 [facility]06-29-2024 Evaluation + Plan noteExtracted from: Title:ED Note Author:Kristie Boss PA-C Date:09/21/23 1. Chronic low back pain wit h left-sided sciatica (M54.42: Lumbago with sciatica, left side) Other chronic pain (G89.29: Other chronic pain) Orders: cyclobenzaprine, 10 mg = 1 tab(s), Oral, TID, PRN for spasm, # 30 tab(s), Refills(s) 0, Pharmacy: [id number], 160, cm, 09/21/23 11:20:00 EDT, Height/Length Dosing, 115.3, kg, 09/21/23 11:20:00 EDT, Weight Dosing ketorolac, 60 mg = 2 mL, Injection, IntraMuscular, Once, Stop date 09/21/23 12:13:00 EDT, STAT, Start date 09/21/23 12:13:00 EDT, 09/21/23 12:13:00 EDT orphenadrine, 60 mg = 2 mL, Injection, IntraMuscular, Once, Stop date 09/21/23 12:12:00 EDT, STAT, Start date 09/21/23 12:12:00 EDT, 09/21/23 12:12:00 EDT Future Appointments Appointment Date:11/13/2023 08:00:00 AM Scheduled Provider:Domenic Sher DO Location:[facility] Appointment Type:Pain Management - Follow Up (FT) Future Scheduled Tests Laboratory* TSH With T4fr Reflex 07/17/23 * Urinalysis with Micro 07/17/23 * Lipid Panel 07/17/23 * Drug Screen Urine 07/17/23 Radiology* MA Mamm Screen w/CAD if perf and 3D Kenan 07/17/23 [facility]06-28-2024 Evaluation + Plan noteExtracted from: Title:ED Note Author:Robert Taylor PA-C te:09/20/23 Chronic back pain (M54.9: Do rsalgia, unspecified) Other chronic pain (G89.29: Other chronic pain) Orders: oxycodone, 10 mg = 2 tab(s), Tab, Oral, Once, Stop date 09/20/23 11:15:00 EDT, STAT, Start date 09/20/23 11:15:00 EDT, 09/20/23 11:15:00 EDT Future Appointments Appointment Date:11/13/2023 08:00:00 AM Scheduled Provider:Domenic Sher DO Location[facility] [place] Appointment Type:Pain Management - Follow Up (FT) Future Scheduled Tests Laboratory* TSH With T4fr Reflex 07/17/23 * Urinalysis with Micro 07/17/23 * Lipid Panel 07/17/23 * Drug Screen Urine 07/17/23 Radiology* MA Mamm Screen w/CAD if perf and 3D Kenan 07/17/23 [facility]06-28-2024 Hospital Discharge instructions Patient Education 09/20/2023 11:31:16 Chronic Obstructive Pulmonary Disease, Turz-zo-Mcrz Chronic Obstructive Pulmonary Disease Chronic obstructive pulmonary [...] Follow these instructions at home: Medicines Take ofuc-vrk-bsfjkaz and prescription medicines only as told by [...] keep yourself as healthy as possible. Take vsgq-esk-jhsmmcl and prescription medicines only as told by your doctor. If you smoke, stop. Smoking makes the problem worse. This information is not intended to replace advice given to you by your health care provider. Make sure you discuss any questions you have with your health care provider. Document Revised: 01/17/2021 Document Reviewed: 01/17/2021 [employer]patch Patient Education 2022 [employer]. Follow Up Care 09/20/2023 10:52:05 With:Cheyanne Rosas Address: [address] [place] [address] [facility] [place] [phone] [facility] (1) When:09/23/2023 11:16:15 [facility]06-25-2024 Hospital Discharge instructions Patient Education 09/17/2023 17:50:54 [...] numbers. This can be done either in [place] ([place] or metric measurements. Note that charts and online BMI calculators are available to help you find your BMI quickly and easily without having to do these calculations yourself. To calculate your BMI in [place] ([place] measurements: 1.Measure your weight in pounds [...] Centers for Disease Control and Prevention: www.cdc.gov [place] Heart Association: www.heart.org National Heart, Lung, and Blood [place]: www.nhlbi.nih.gov Summary Body mass index (BMI) is a number that is calculated from a person's weight and height. BMI may help estimate how much of a person's weight is composed of fat. BMI can help identify thosewho may be at higher risk for certain medical problems. BMI can be measured using [place] measurements or metric measurements. BMI charts are used to identify whether you are underweight, normal weight, overweight, or obese. This information is not intended to replace advice given to you by your health care provider. Make sure you discuss any questions you have with your health care provider. Document Revised: 12/02/2019 Document Reviewed: 10/09/2019 [employer]patch Patient Education 2022 [employer]. 09/17/2023 17:50:52 Steps to Quit Smoking Steps [...] require a prescription. You can also purchase pnnl-zfh-omaevat medicines. Medicines may have nicotine in them [...] and encouragement. Call telephone quitlines, such as 2-358-ECZY-NOW, reach out to support groups, or work [...] provider. Document Revised: 03/02/2022 Document Reviewed: 03/02/2022 [employer]patch Patient Education 2022 [employer] 09/17/2023 17:50:51 Health Risks of Smoking [...] Department of Health and Human Services: www.smokefree.gov [place] Lung Association: www.freedomfromsmoking.org [place] Heart Association: www.heart.org Where to find more [...] provider. Document Revised: 03/13/2022 Document Reviewed: 03/13/2022 [employer]patch Patient Education 2022 [employer]. Follow Up Care 09/17/2023 17:37:01 With:Ralph BEYER, VANESSA Aaron, [facility] Address: [facility] [address], [facility] [address] [address]- When: Unknown [facility] 06-18-2024 Hospital Discharge instructions Patient Education 09/09/2023 23:26:42 Chronic Back Pain, Zkjw-zc-Nnqi Chronic Back Pain When back pain lasts [...] pull them backward. Do not sit or brinell tester one place for long periods of time. [...] prescription pain medicine, or muscle relaxants. Take wzap-ptd-mcgtmyk and prescription medicines only as told by your doctor. Ask your doctor if the medicine prescribed to you: ?Requires you to avoid driving or using machinery. ?Can cause trouble pooping (constipation). You may need to take these actions to prevent or treat trouble pooping: ?Drink enough fluid to keep your pee (urine) pale yellow. ?Take cazz-lfe-lqwmcmn or prescription medicines. ?Eat foods that are [...] provider. Document Revised: 04/20/2020 Document Reviewed: 04/20/2020 [employer]patch Patient Education 2022 [employer]. 09/09/2023 23:26:42 Acute Back Pain, Adult Acute [...] home: Managing pain, stiffness, and swelling Take xjab-fme-vbhchkx and prescription medicines only as told by [...] each day. Do not sit, drive, or brinell tester one place for more than 30 minutes [...] put less stress on your back. Take aknj-ust-mwkhaql and prescription medicines only as told by your health care provider, and apply heat or ice as told. This information is not intended to replace advice given to you by your health care provider. Make sure you discuss any questions you have with your health care provider. Document Revised: 06/02/2021 Document Reviewed: 06/02/2021 [employer] Patient Education 2022 [employer] Follow Up Care 09/09/2023 18:55:50 With:Cheyanne Rosas Address: [address] [place] [address] [place], [facility] [place] [phone] [facility] (1) When:09/12/2023 Comments:Call Dr for diagnosis based follow up [facility]06-17-2024 Evaluation + Plan noteExtracted from: Title:ED Note [...] Appointment Date:09/11/2023 09:00:00 AM Scheduled Provider:Ashia Simental Location:[facility] Appointment Type: Intake Appointment Date:11/13/2023 08:00:00 AM Scheduled Provider:Domenic Sher DO Location:[facility] Appointment Type:Pain Management - Follow Up (FT) Future Scheduled Tests Laboratory* TSH With T4fr Reflex 07/17/23 * Urinalysis with Micro 07/17/23 * Lipid Panel 07/17/23 * Drug Screen Urine 07/17/23 Radiology* MA Mamm Screen w/CAD if perf and 3D Kenan 07/17/23 [facility]06-14-2024 Evaluation + Plan noteExtracted from: Title:ED Note [...] Appointment Date:09/11/2023 09:00:00 AM Scheduled Provider:Ashia Simental Location:[facility] Appointment Type: Intake Appointment Date:11/13/2023 08:00:00 AM Scheduled Provider:Domenic Sher DO Location:[facility] Appointment Type:Pain Management - Follow Up (FT) Future Scheduled Tests Laboratory* TSH With T4fr Reflex 07/17/23 * Urinalysis with Micro 07/17/23 * Lipid Panel 07/17/23 * Drug Screen Urine 07/17/23 Radiology* MA Mamm Screen w/CAD if perf and 3D Kenan 07/17/23 [facility]06-10-2024 Hospital Discharge instructions Patient Education 09/02/2023 19:03:31 [...] pull them backward. Do not sit or brinell tester one place for long periods of time. [...] prescription pain medicine, or muscle relaxants. Take livp-zds-hfasjyl and prescription medicines onlyas told by your health care provider. Ask your health care provider if the medicine prescribed to you: ?Requires you to avoid driving or using machinery. ?Can cause constipation. You may need to take these actions to prevent or treat constipation: ?Drink enough fluid to keep your urine pale yellow. ?Take ddsm-qay-ytrhfwa or prescription medicines. ?Eat foods that are [...] provider. Document Revised: 04/20/2020 Document Reviewed: 04/20/2020 [employer]patch Patient Education 2022 [employer]. Follow Up Care 09/02/2023 17:51:01 With:Domenic Sher Address: [address] [place] [address] [place] [address] Business (1) When:09/05/2023 18:28:26 With:Bio Address: [address] [place] [address]- Business (1) When:09/05/2023 18:28:19 With:Cheyanne Rosas Address: [address], [address] [facility] [address] [place] [address]- Business (1) When:Within 3 Day(s) [facility]06-10-2024 Evaluation + Plan noteExtracted from: Title:ED Note Author:Jorge Mcintosh DO Date:08/23 Back pain (M54.9: Dorsalgia, unspecified) Orders: diazepam, 5 mg = 1 mL, Injection, IntraMuscular, Once, Stop date 09/02/23 18:30:00 EDT, STAT, Start date 09/02/23 18:30:00 EDT, 09/02/23 18:30:00 EDT diflunisal, 500 mg = 1 tab(s), Oral, q12hr, # 20 tab(s), Refills(s) 0, Pharmacy: [facility]/pharm[facility] #[id number], 160, cm, 09/02/23 18:11:00 EDT, Height/Length Dosing, 115.5, kg, 09/02/23 18:11:00 EDT, Weight Dosing ketorolac, 60 mg = 2 mL, Injection, IntraMuscular, Once, Stop date 09/02/23 18:30:00 EDT, STAT, Start date 09/02/23 18:30:00 EDT, 09/02/23 18:30:00 EDT lidocaine topical, 1 patch(es), Topical, Daily, 7 patch(es), Refill(s) 0, apply 12 hours on and 12 hours off daily, [id number], 160, cm, 09/02/23 18:11:00 EDT, Height/Length Dosing, 115.5, kg, 09/02/23 18:11:00 EDT, Weight Dosing methocarbamol, 750 mg = 1 tab(s), Oral, TID, X 7 day(s), # 21 tab(s), Refills(s) 0, Pharmacy: [facility]/pharmacy [facility][id number], 160, cm, 09/02/23 18:11:00 EDT, Height/Length Dosing, 115.5, kg, 09/02/23 18:11:00 EDT, Weight Dosing Future Appointments Appointment Date:09/11/2023 09:00:00 AM Scheduled Provider:Ashia Simental Location:[facility] Appointment Type:BH Intake Appointment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 [place] Heart Association: www.heart.org Academy of Nutrition and [...] provider. Document Revised: 02/12/2020 Document Reviewed: 02/12/2020 [employer]patch Patient Education 2022 [employer]. 07/17/2023 09:40:52 Health Risks of Smoking Health [...] Department of Health and Human Services: www.smokefree.gov [place] Lung Association: www.freedomfromsmoking.org [place] Heart Association: www.heart.org Where to find more [...] provider. Document Revised: 03/13/2022 Document Reviewed: 03/13/2022 [employer]patch Patient Education 2022 [employer]. 07/17/2023 09:40:49 Chronic Back Pain Chronic Back [...] pull them backward. Do not sit or brinell tester one place for long periods of time. [...] prescription pain medicine, or muscle relaxants. Take odhv-jty-jepmyqg and prescription medicines onlyas told by your health care provider. Ask your health care provider if the medicine prescribed to you: ?Requires you to avoid driving or using machinery. ?Can cause constipation. You may need to take these actions to prevent or treat constipation: ?Drink enough fluid to keep your urine pale yellow. ?Take hnds-ltd-yycjjpb or prescription medicines. ?Eat foods that are [...] provider. Document Revised: 04/20/2020 Document Reviewed: 04/20/2020 Dispatch Patient Education 2022 [employer]. 07/17/2023 09:40:47 Hepatitis C Hepatitis C Hepatitis [...] Follow these instructions at home: Medicines Take apxv-rir-kvhrusc and prescription medicines only as told by your health care provider. If you were prescribed an antiviral medicine, take it as told by your health care provider. Do not stop using the antiviral even if you start to feel better. Do not take any new medicines, including yuir-sbl-yvhbcpa medicines or supplements, unless your health care [...] water are not available, use alcohol-based hand manager product. Cover any cuts or open sores on [...] contagious). Do not take any medicines, including oglh-eko-nlzdukh medicines or supplements, unless your health care provider approves. This information is not intended to replace advice given to you by your health care provider. Make sure you discuss any questions you have with your health care provider. Document Revised: 01/26/2021 Document Reviewed: 01/26/2021 [employer]patch Patient Education 2022 [employer]. 07/17/2023 09:40:45 Mixed Bipolar Disorder Mixed Bipolar [...] alcohol or use drugs. General instructions Take anoz-zmh-pvheuew and prescription medicines only as told by your health care provider. Think about joining a support group. Your health care provider may be able to recommend one. Talk with your family and loved ones about your treatment goals and about how they can help. Keep all follow-up visits. This is important. Where to find more information National [place] on Mental Illness: kati.org National [place] of Mental Health: nim.nih.gov Contact a health care provider if: Your [...] department or: Call your local emergency services (927 in the U.S.). Call a suicide crisis helpline, such as the National Suicide Prevention Lifeline at or 024 in the U.S. This is open 24 hours a day. Text the Crisis Text Line at 918386 (in the [place].S.). Summary Mixed bipolar disorder [...] provider. Document Revised: 10/05/2021 Document Reviewed: 08/31/2021 [employer]patch Patient Education 2022 [employer] Follow Up Care 05/07/2023 10:08:54 With:Cheyanne Rincon FAM, MED Address: [address] [place] [address] [address]- When:Within 1 Month(s) Comments:f/u labs, HTN, [facility] 04-22-2024 Evaluation + Plan [...] Appointment Date:07/17/2023 07:40:00 AM Scheduled Provider:Cheyanne Rincon Location:[facility] Appointment Type:FM New Patient - Adult Appointment Date:08/14/2023 03:15:00 PM Scheduled Provider:Domenic Sher DO Location:[facility] Appointment Type:Pain Management - Follow Up (FT) [facility]04-21-2024 Hospital Discharge instructions Patient Education 07/14/2023 12:21:30 [...] pull them backward. Do not sit or brinell tester one place for long periods of time. [...] prescription pain medicine, or muscle relaxants. Take qrrt-ugv-dmftxge and prescription medicines onlyas told by your health care provider. Ask your health care provider if the medicine prescribed to you: ?Requires you to avoid driving or using machinery. ?Can cause constipation. You may need to take these actions to prevent or treat constipation: ?Drink enough fluid to keep your urine pale yellow. ?Take sati-lna-dvbnlyi or prescription medicines. ?Eat foods that are [...] provider. Document Revised: 04/20/2020 Document Reviewed: 04/20/2020 Dispatch Patient Education 2022 [employer]. Follow Up Care 07/14/2023 11:37:07 With:Follow-up with pain management tomorrow as scheduled Address:Unknown When: Unknown With:[facility]: [place] [phone] Address:Unknown When:07/15/2023 12:02:43 With:Cheyanne Rosas Address: [address], [address] [address]- Business (1) When:Within 3 Day(s) [facility]04-21-2024 Evaluation + Plan noteExtracted from: Title:ED Note [...] 01:45:00 PM Scheduled Provider:Dory Shepherd PA-C Location:[facility] Appointment Type:Pain Management - New (FT) Appointment Date:07/17/2023 07:40:00 AM Scheduled Provider:Cheyanne Rincon Location:[facility] Appointment Type:FM New Patient - Adult [facility]04-18-2024 Evaluation + Plan noteExtracted from: Title:ED Note [...] Date:07/15/2023 01:45:00 PM Scheduled Provider:Dory Shepherd PA-C Location:[facility] Appointment Type:Pain Management - New (FT) Appointment Date:07/17/2023 07:40:00 AM Scheduled Provider:Cheyanne Rincon Location:[facility] Appointment Type:FM New Patient - Adult [facility]04-18-2024 Hospital Discharge instructions Patient Education 07/11/2023 10:06:49 [...] pull them backward. Do not sit or brinell tester one place for long periods of time. [...] prescription pain medicine, or muscle relaxants. Take hein-fkv-kldxfjf and prescription medicines onlyas told by your health care provider. Ask your health care provider if the medicine prescribed to you: ?Requires you to avoid driving or using machinery. ?Can cause constipation. You may need to take these actions to prevent or treat constipation: ?Drink enough fluid to keep your urine pale yellow. ?Take hbrm-lro-nocijlh or prescription medicines. ?Eat foods that are [...] provider. Document Revised: 04/20/2020 Document Reviewed: 04/20/2020 Dispatch Patient Education 2022 [employer]. 07/11/2023 10:06:49 Managing Chronic Back Pain Managing [...] you do a task in which you brinell tester one place for a long time, place [...] instructions at home: Medicines Treatment may include ubmp-als-rdjesxq or prescription medicines for pain and inflammation that aretaken by mouth or applied to the skin. Another treatment may include muscle relaxants. Take gmvv-wod-ywtyimi and prescription medicines only as told by your health care provider. Ask your health care provider if the medicine prescribed to you: ?Requires you to avoid driving or using machinery. ?Can cause constipation. You may need to take these actions to prevent or treat constipation: ?Drink enough fluid to keep your urine pale yellow. ?Take ozza-vqk-vhamonv or prescription medicines. ?Eat foods that are [...] online and in-person support groups through: [employer] [place] [employer]: theacpa.org Pain Connection Program: [...] provider. Document Revised: 04/21/2020 Document Reviewed: 12/29/2019 Dispatch Patient Education 2022 [employer]. Follow Up Care 07/11/2023 09:19:03 With:Cheyanne Rosas Address: [address], [address] [place] [phone]- Business (1) When:07/14/2023 09:59:05 Comments:Make sure to follow-up with your primary doctor and the pain management. Return to the emergency room if your pain gets worse, bowel or bladder incontinence, numbness/tingling in the saddle/groin area, weakness in your legs or any new symptoms. 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 She has 4 [...] Department of Psychiatry Director, Division of Psychology [facility] (o) [phone] documented in this [facility] Work Phone: 1(696) 197-344404-13-2024 Hospital Discharge instructions Patient Education 07/06/2023 19:51:44 [...] home: Managing pain, stiffness, and swelling Take zgul-wum-guyzicd and prescription medicines only as told by [...] each day. Do not sit, drive, or brinell tester one place for more than 30 minutes [...] put less stress on your back. Take spht-jqv-ngggxjl and prescription medicines only as told by your health care provider, and apply heat or ice as told. This information is not intended to replace advice given to you by your health care provider. Make sure you discuss any questions you have with your health care provider. Document Revised: 06/02/2021 Document Reviewed: 06/02/2021 Dispatch Patient Education 2022 [employer]. Follow Up Care 07/06/2023 18:10:42 With:Cheyanne Rosas Address: [address] [facility], [facility] [address] [place] [phone] Business (1) When:Within 3 Day(s) [facility]04-13-2024 Evaluation + Plan noteExtracted from: Title:ED Note [...] Date:07/15/2023 01:45:00 PM Scheduled Provider:Dory Shepherd PA-C [facility] Appointment Type:Pain Management - New () Appointment Date:07/17/2023 07:40:00 AM Scheduled Provider:Cheyanne Rincon Location:[facility] Appointment Type:FM New Patient - Adult [facility]04-06-2024 Hospital Discharge instructions Patient Education 06/29/2023 14:20:12 [...] pull them backward. Do not sit or brinell tester one place for long periods of time. [...] prescription pain medicine, or muscle relaxants. Take vozf-yup-phxdhyf and prescription medicines onlyas told by your health care provider. Ask your health care provider if the medicine prescribed to you: ?Requires you to avoid driving or using machinery. ?Can cause constipation. You may need to take these actions to prevent or treat constipation: ?Drink enough fluid to keep your urine pale yellow. ?Take xsoy-bmh-bodsqsu or prescription medicines. ?Eat foods that are [...] provider. Document Revised: 04/20/2020 Document Reviewed: 04/20/2020 Dispatch Patient Education 2022 [employer]. 06/29/2023 14:20:12 Acute Back Pain, Adult Acute [...] home: Managing pain, stiffness, and swelling Take meiv-akr-xbastmd and prescription medicines only as told by [...] each day. Do not sit, drive, or brinell tester one place for more than 30 minutes [...] put less stress on your back. Take cxvh-syv-krlefqd and prescription medicines only as told by your health care provider, and apply heat or ice as told. This information is not intended to replace advice given to you by your health care provider. Make sure you discuss any questions you have with your health care provider. Document Revised: 06/02/2021 Document Reviewed: 06/02/2021 Dispatch Patient Education 2022 [employer] Follow Up Care 06/29/2023 13:03:37 With:Cheyanne Rosas Address: [address], [facility] [address] [place] [phone] Business (1) When:07/02/2023 14:07:11 Comments:Follow-up with your primary care provider in 3 to 5 days. If symptoms worsen, do not improve, or new symptoms arise please report back to emergency department for further evaluation. [facility]04-06-2024 Evaluation + Plan noteExtracted from: Title:ED Note [...] Date:07/15/2023 01:45:00 PM Scheduled Provider:Dory Shepherd PA-C [facility] [place] Appointment Type:Pain Management - New () Appointment Date:07/17/2023 07:40:00 AM Scheduled Provider:Cheyanne Rincon Location:[facility] Appointment Type: New Patient - Adult [facility]04-04-2024 Hospital Discharge instructions Patient Education 06/27/2023 12:37:54 [...] pull them backward. Do not sit or brinell tester one place for long periods of time. [...] a greater risk of getting burned. Take mwyk-pab-homgwwt and prescription medicines only as told by [...] provider. Document Revised: 09/14/2021 Document Reviewed: 09/14/2021 Dispatch Patient Education 2022 [employer]. 06/27/2023 12:37:54 Herniated Disk Herniated Disk A [...] Follow these instructions at home: Medicines Take ywlo-inu-alwulpm and prescription medicines only as told by your health care provider. Ask your health care provider if the medicine prescribed to you: ?Requires you to avoid driving or using heavy machinery. ?Can cause constipation. You may need to take these actions to prevent or treat constipation: ?Drink enough fluid to keep your urine pale yellow. ?Take aohc-ail-eierzwb or prescription medicines. ?Eat foods that are [...] provider. Document Revised: 06/29/2020 Document Reviewed: 06/29/2020 Dispatch Patient Education 2022 [employer]. Follow Up Care 06/27/2023 11:49:45 With:[facility]: [place] [phone] Address:Unknown When:06/30/2023 12:22:32 With:Cheyanne Rosas Address: [address], [facility] [address] [address] Business (1) When:Within 3 Day(s) [facility]04-04-2024 Evaluation + Plan noteExtracted from: Title:ED Note [...] prednisone, # 40 tab(s), Refills(s) 0, Pharmacy: [facility]/pharmacy #[id number], 160, cm, 06/27/23 11:54:00 EDT, Height/Length [...] days., # 18 tab(s), Refills(s) 0, Pharmacy: [facility]/pharmacy #[id number], 160, cm, 06/27/23 11:54:00 EDT, Height/Length Dosing, 117.2, kg, 06/27/23 11:5... tizanidine, 4 mg = 1 tab(s), Oral, q6hr, PRN Muscle pain, # 40 tab(s), Refills(s) 0, Pharmacy: [facility]/pharmacy #[id number], 160, cm, 06/27/23 11:54:00 EDT, Height/Length Dosing, 117.2, kg, 06/27/23 11:54:00 EDT, Weight Dosing Future Appointments Appointment Date:07/17/2023 07:40:00 AM Scheduled Provider:Cheyanne Rincon Location:[facility] Appointment Type: New Patient - Adult [facility]04-01-2024 Evaluation + Plan noteExtracted from: Title:ED Note [...] Appointment Date:07/17/2023 07:40:00 AM Scheduled Provider:Cheyanne Rincon Location:[facility] Appointment Type: New Patient - Adult [facility]04-01-2024 Hospital Discharge instructions Patient Education 06/24/2023 11:56:52 [...] pull them backward. Do not sit or brinell tester one place for long periods of time. [...] prescription pain medicine, or muscle relaxants. Take anif-pnc-kgqqkmk and prescription medicines onlyas told by your health care provider. Ask your health care provider if the medicine prescribed to you: ?Requires you to avoid driving or using machinery. ?Can cause constipation. You may need to take these actions to prevent or treat constipation: ?Drink enough fluid to keep your urine pale yellow. ?Take vwir-qig-dtvpokv or prescription medicines. ?Eat foods that are [...] provider. Document Revised: 04/20/2020 Document Reviewed: 04/20/2020 Dispatch Patient Education 2022 [employer] Follow Up Care 06/24/2023 09:43:03 With:Cheyanne Rosas Address: [address], [facility] [address] [place] [phone] [facility] (1) When:06/27/2023 11:48:27 Comments:Follow-up with your primary doctor and your back specialist. Return to the emergency room if your pain gets worse or any new symptoms. [facility]03-30-2024 Hospital Discharge instructions Patient Education 06/22/2023 18:48:41 Viral Gastroenteritis, Adult, Qkzd-ji-Nmus Viral Gastroenteritis, Adult Viral gastroenteritis is also [...] younger than 2 years. Living in a skilled nursing. Going on cruise ships. What are the [...] cannot use soap and water, use hand manager product. Make sure that all people in your home wash their hands well and often. Take ryuu-eyc-vgtpnuh and prescription medicines only as told by [...] cannot use soap and water, use hand manager product. This information is not intended to replace advice given to you by your health care provider. Make sure you discuss any questions you have with your health care provider. Document Revised: 01/08/2022 Document Reviewed: 01/08/2022 Dispatch Patient Education 2022 [employer]. Follow Up Care 06/22/2023 14:18:20 With:Cheyanne Rosas Address: [address] [place], [place] [id number] [facility] (1) When:06/25/2023 18:47:46 Comments:Call the office of [...] weakness, or any new or worsening symptoms. [facility]03-30-2024 Evaluation + Plan noteExtracted from: Title:ED Note Author:Susu Lamar PA-C Date :06/22/23 Acute gastroenteritis (K52.9 : Noninfective gastroenteritis and colitis, unspecified) Orders: dicyclomine, 10 mg = 1 cap(s), Oral, QID, PRN Other (see comment), For abdominal cramping, # 12 cap(s), Refills(s) 0, Pharmacy: [facility]/pharmacy #[id number], 160, cm, 06/22/23 14:24:00 EDT, Height/Length Dosing, 118.5, kg, 06/22/23 14:24:00 EDT, Weight Dosing dicyclomine, 20 mg = 1 tab(s), Tab, Oral, Once, Stop date 06/22/23 18:49:00 EDT, STAT, Start date 06/22/23 18:49:00 EDT, 06/22/23 18:49:00 EDT ondansetron, 4 mg = 1 tab(s), Oral, q8hr, PRN Nausea/Vomiting, # 12 tab(s), Refills(s) 0, Pharmacy: [facility]/pharmacy #[id number], 160, cm, 06/22/23 14:24:00 EDT, Height/Length Dosing, 118.5, kg, 06/22/23 14:24:00 EDT, Weight Dosing ondansetron, 4 mg = 1 tab(s), Tab-Dis, Oral, Once, Stop date 06/22/23 18:49:00 EDT, STAT, Start date 06/22/23 18:49:00 EDT, 06/22/23 18:49:00 EDT Future Appointments Appointment Date:07/17/2023 07:40:00 AM Scheduled Provider:Cheyanne Rincon Location:[facility] Appointment Type:FM New Patient - Adult [facility]03-23-2024 Hospital Discharge instructions Patient Education 06/15/2023 18:41:01 [...] pull them backward. Do not sit or brinell tester one place for long periods of time. [...] prescription pain medicine, or muscle relaxants. Take hocp-udz-zgibfuy and prescription medicines onlyas told by your health care provider. Ask your health care provider if the medicine prescribed to you: ?Requires you to avoid driving or using machinery. ?Can cause constipation. You may need to take these actions to prevent or treat constipation: ?Drink enough fluid to keep your urine pale yellow. ?Take dzoh-ycv-mhasxce or prescription medicines. ?Eat foods that are [...] provider. Document Revised: 04/20/2020 Document Reviewed: 04/20/2020 Dispatch Patient Education 2022 [employer]. Follow Up Care 06/15/2023 17:57:51 With:Cheyanne Rosas Address: [address] [place] [address] [place], [facility] [address] [place] [phone] Business (1) When:06/18/2023 18:33:35 Comments:Return to the emergency room if your pain gets worse, bowel or bladder incontinence, numbness/tingling in the saddle/groin area or any new symptoms. 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 - 06/15/2023 2:33 PM EDT Chief Complaint [...] of chronic back pain ROX Martinez 06/15/23 [id number] [facility] Work Phone: 1(780) 400-769303-23-2024 Physician Emergency department Note* ROX Martinez - [...] of chronic back pain ROX Martinez 06/15/23 4554 [facility] Work Phone: 1(504) 813-336103-23-2024 Evaluation + Plan noteExtracted from: Title:ED Note [...] day(s), # 42 tab(s), Refills(s) 0, Pharmacy: [facility]/pharmacy #[id number], 160, cm, 06/15/23 18:08:00 EDT, Height/Length Dosing, 118.5, kg, 06/15/23 18:08:00 EDT, Weight Dosing orphenadrine, 60 mg = 2 mL, Injection, IntraMuscular, Once, Stop date 06/15/23 18:23:00 EDT, STAT, Start date 06/15/23 18:23:00 EDT, 06/15/23 18:23:00 EDT Future Appointments Appointment Date:07/17/2023 07:40:00 AM Scheduled Provider:Cheyanne Rincon Location:[facility] Appointment Type:FM New Patient - Adult [facility]03-19-2024 Hospital Discharge instructions Patient Education 06/11/2023 20:11:42 Chronic Back Pain, Spil-xh-Cdiq Chronic Back Pain When back pain lasts [...] pull them backward. Do not sit or brinell tester one place for long periods of time. [...] prescription pain medicine, or muscle relaxants. Take ilyf-jei-cxbafvm and prescription medicines only as told by your doctor. Ask your doctor if the medicine prescribed to you: ?Requires you to avoid driving or using machinery. ?Can cause trouble pooping (constipation). You may need to take these actions to prevent or treat trouble pooping: ?Drink enough fluid to keep your pee (urine) pale yellow. ?Take lyte-gde-bwcufrg or prescription medicines. ?Eat foods that are [...] provider. Document Revised: 04/20/2020 Document Reviewed: 04/20/2020 Dispatch Patient Education 2022 [employer]. Follow Up Care 06/11/2023 18:49:29 With:Cheyanne Rosas Address: [address] [place] [address] [place] [phone] Business (1) When:06/14/2023 19:30:55 Comments:Take the steroids once daily and to complete the course. Use medications as prescribed as needed for pain. Please follow-up with your primary care doctor next 2 to 3 days. Please return to the ED forany new or worsening symptoms. [facility]03-19-2024 Evaluation + Plan noteExtracted from: Title:ED Note Author:Elisa Sánchez DO Date :3/19/24 Chronic back pain (M54.9: Do rsalgia, unspecified) Other chronic pain (G89.29: Other chronic pain) Orders: ketorolac, 30 mg = 1 mL, Injection, IntraMuscular, Once, Stop date 06/11/23 19:29:00 EDT, STAT, Start date 06/11/23 19:29:00 EDT, 06/11/23 19:29:00 EDT methocarbamol, 500 mg = 1 tab(s), Oral, TID, X 3 day(s), # 9 tab(s), Refills(s) 0, Pharmacy: [facility]/pharmacy #[id number], 160, cm, 06/11/23 19:00:00 EDT, Height/Length Dosing, 118.8, kg, 06/11/23 19:00:00 EDT, Weight Dosing morphine, 2 mg = 1 mL, Injection, IntraMuscular, Once, Stop date 06/11/23 19:29:00 EDT, STAT, Start date 06/11/23 19:29:00 EDT, 06/11/23 19:29:00 EDT predniSONE, 50 mg = 1 tab(s), Oral, Daily, X 5 day(s), # 5 tab(s), Refills(s) 0, Pharmacy: [facility]/pharmacy #[id number], 160, cm, 06/11/23 19:00:00 EDT, Height/Length Dosing, 118.8, kg, 06/11/23 19:00:00 EDT, Weight Dosing predniSONE, 60 mg = 3 tab(s), Tab, Oral, Once, Stop date 06/11/23 19:29:00 EDT, STAT, Start date 06/11/23 19:29:00 EDT, 06/11/23 19:29:00 EDT Future Appointments Appointment Date:07/17/2023 07:40:00 AM Scheduled Provider:Cheyanne Rincon Location:[facility] Appointment Type:FM New Patient - Adult [facility]03-16-2024 Emergency department Note* Munira Perez RN - 06/08/2023 6:29 PM EDT Registration called for registration as pt has been up for discharge for 20 min. [id number] Emergency department Note* Munira Perez RN - [...] Discussed with attending who did evaluate patient unab-an-zowe, developed plan for pain control here, will be given fentanyl dose here with Zofran. Being prescription for Percocet. Encourage rest hydration outpatient follow-up as discussed, close return precautions if symptoms get worse. Did discuss with attending, Allyson Griffiths DO, who did evaluate patient jdfb-ml-mhes. Patient otherwise stable at this time, vital [...] aggravated her pain more. documented in this encounterOhio[facility] [id number] Hospital Discharge instructions* Discharge Instructions* Flex Jansen PA-C - 06/08/2023 5:58 PM EDT Medication as directed, beware may cause drowsiness. Rest and hydrate, follow-up with your doctors in the next few days, return as needed. * Attachments The following attachments cannot be sent through Care Everywhere. * Back Pain ([place]atem[place]) documented in this encounterOhio[facility] [id number] Physician Emergency department Note* Flex Jansen PA-C [...] Discussed with attending who did evaluate patient bykb-do-emmr, developed plan for pain control here, will be given fentanyl dose here with Zofran. Being prescription for Percocet. Encourage rest hydration outpatient follow-up as discussed, close return precautions if symptoms get worse. Did discuss with attending, Allyson Griffiths DO, who did evaluate patient wnxo-wv-gerx. Patient otherwise stable at this time, vital signs are stable, patient afebrile, and nontoxic in appearance.Attending physician available for immediate consultation throughout entire patient's stay. Decision to Disposition Home or Admit: Discharge FINAL IMPRESSION: 1. Bilateral low back pain [facility] [id number] Emergency department Note* Cheryl Joiner RN - 06/08/2023 5:39 PM EDT Pt arrives via triage for complaints of lower back apin. Pt states she has hx of bulging disc and states that she was in the car for a long time and thinks that it aggravated her pain more. [facility] [id number] History of Present illness Narrative* Elke Adams [...] y.o. female with HCV (in setting of group home opioid use) and depression,with longstanding back and [...] practice, but she would like a more intermodal customer service solution to her pain, and she is [...] significant central canal narrowing. documented in this [facility] Work Phone: 1(577) 202-823203-11-2024 Hospital Discharge instructions Patient Education 06/03/2023 20:00:59 [...] home: Managing pain, stiffness, and swelling Take ldpd-eqd-igewwfa and prescription medicines only as told by [...] each day. Do not sit, drive, or brinell tester one place for more than 30 minutes [...] put less stress on your back. Take wdqi-lil-dkftzaq and prescription medicines only as told by your health care provider, and apply heat or ice as told. This information is not intended to replace advice given to you by your health care provider. Make sure you discuss any questions you have with your health care provider. Document Revised: 06/02/2021 Document Reviewed: 06/02/2021 Dispatch Patient Education 2022 [employer]. 06/03/2023 20:00:59 Chronic Back Pain, Xkio-ui-Bvul Chronic Back Pain When back pain lasts [...] pull them backward. Do not sit or brinell tester one place for long periods of time. [...] prescription pain medicine, or muscle relaxants. Take voby-kwy-pfmubdg and prescription medicines only as told by your doctor. Ask your doctor if the medicine prescribed to you: ?Requires you to avoid driving or using machinery. ?Can cause trouble pooping (constipation). You may need to take these actions to prevent or treat trouble pooping: ?Drink enough fluid to keep your pee (urine) pale yellow. ?Take sjvn-uaf-myrkcdj or prescription medicines. ?Eat foods that are [...] provider. Document Revised: 04/20/2020 Document Reviewed: 04/20/2020 Dispatch Patient Education 2022 [employer]. Follow Up Care 06/03/2023 18:58:41 With:Cheyanne Rosas Address: [facility] [place] [phone] Business (1) When:06/06/2023 19:33:42 Comments:Follow-up with your primary care provider in 3 to 5 days. If symptoms worsen, do not improve, or new symptoms arise please report back to emergency department for further evaluation. [facility]03-11-2024 Evaluation + Plan noteExtracted from: Title:ED Note Author:Landon Tidwell PA-C te:06/03/23 Chronic back pain (M54.9: Do rsalgia, unspecified) Other chronic pain (G89.29: Other chronic pain) Orders: ibuprofen, 800 mg = 1 tab(s), Oral, q8hr, # 30 tab(s), Refills(s) 0, Pharmacy: [facility]/pharmacy #[id number], 160, cm, 03/23/23 12:50:00 EST, Height/Length Dosing, [...] Appointment Date:06/13/2023 07:40:00 AM Scheduled Provider:Cheyanne Rincon Location:[facility] Appointment Type: New Patient - Adult [facility]03-08-2024 Hospital Discharge instructions Patient Education 05/31/2023 18:15:18 [...] Follow these instructions at home: Medicines Take rxle-ing-lxkcvgb and prescription medicines only as told by [...] Watch your condition for any changes. Take hpnz-vxv-eaqmlxq and prescription medicines only as told by [...] provider. Document Revised: 04/29/2020 Document Reviewed: 07/20/2019 Dispatch Patient Education 2022 [employer]. Follow Up Care 05/31/2023 16:33:31 With:Cheyanne Rosas Address: [address] [place] [id number] [facility] (1) When:06/03/2023 18:09:48 [facility]03-03-2024 Hospital Discharge instructions Patient Education 05/26/2023 20:04:37 [...] Follow these instructions at home: Medicines Take dduk-eoa-pskraie and prescription medicines only as told by your health care provider. Ask your health care provider if the medicine prescribed to you: ?Requires you to avoid driving or using heavy machinery. ?Can cause constipation. You may need to take these actions to prevent or treat constipation: ?Drink enough fluid to keep your urine pale yellow. ?Take iwrq-itp-qzvucxa or prescription medicines. ?Eat foods that are [...] provider. Document Revised: 06/18/2022 Document Reviewed: 08/04/2019 Dispatch Patient Education 2022 [employer]. Follow Up Care 05/26/2023 19:25:03 With:Ralph BEYER, VANESSA Aaron, MED Address: [facility] [address], [facility] [place] [phone]- When:05/29/2023 [facility]03-03-2024 Evaluation + Plan noteExtracted from: Title:ED Note Author:Susu Lamar PA-C Date :05/26/23 1. Lumbar strain (S39.012A: Strain of muscle, fascia and tendon of lower back, initial encounter) Ordered: tizanidine, 4 mg = 1 tab(s), Oral, q8hr, X 5 day(s), # 15 tab(s), Refills(s) 0, Pharmacy: [facility]/pharmacy #[id number], 160, cm, 05/26/23 19:39:00 EST, Height/Length [...] Appointment Date:06/13/2023 07:40:00 AM Scheduled Provider:Cheyanne Rincon Location:[facility] Appointment Type:FM New Patient - Adult [facility]03-01-2024 Hospital Discharge instructions Patient Education 05/24/2023 20:43:51 Chronic Back Pain, Mqgx-uq-Hcta Chronic Back Pain When back pain lasts [...] pull them backward. Do not sit or brinell tester one place for long periods of time. [...] prescription pain medicine, or muscle relaxants. Take xcyf-tyo-dmphthq and prescription medicines only as told by your doctor. Ask your doctor if the medicine prescribed to you: ?Requires you to avoid driving or using machinery. ?Can cause trouble pooping (constipation). You may need to take these actions to prevent or treat trouble pooping: ?Drink enough fluid to keep your pee (urine) pale yellow. ?Take bigj-xuh-rrpjugm or prescription medicines. ?Eat foods that are [...] provider. Document Revised: 04/20/2020 Document Reviewed: 04/20/2020 Dispatch Patient Education 2022 [employer]. Follow Up Care 05/24/2023 18:42:41 With:Cheyanne Rosas Address: [address], [facility] [place] [phone] Business (1) When:Within 3 Day(s) [facility]03-01-2024 Evaluation + Plan noteExtracted from: Title:ED Note Author:Landon Tidwell PA-C te:05/24/23 Lumbago (M54.50: Low back pa in, [...] Appointment Date:06/13/2023 07:40:00 AM Scheduled Provider:Cheyanne Rincon Location:[facility] Appointment Type:FM New Patient - Adult [facility]02-26-2024 History of Present illness Narrative* Belkis Hernandez, - 05/20/2023 8:15 AM ESTAssociated Order(s): Hand / UE Inj/Asp: R thumb CMC Post-Procedure Diagnose(s): CMC arthritis History present illness: Patient presents today for evaluation status post mechanical fall down 2 stairs that occurred on 11 May 2023. She was walking the dog in the snow. She slipped and fell. Tdust-youc-zdoxveou and otherwise healthy. She describes right radial [...] called to verify the correctpatient, procedure, equipment, sales support rep and site/side marked as required. Patient was prepped and draped in the usual sterile fashion. documented in this [facility] Work Phone: 1(110) 723-576202-22-2024 Hospital Discharge instructions Patient Education 05/16/2023 17:04:02 [...] provider if you may use a hand parts remover to strengthen your muscles. If your thumb feels stiff while you are exercising it, try doing the exercises while soaking your hand in warm water. General instructions Take fqli-nse-rvtauoh and prescription medicines only as told by [...] provider. Document Revised: 01/17/2021 Document Reviewed: 01/17/2021 Dispatch Patient Education 2022 [employer]. 05/16/2023 17:04:02 Cast or Splint Care, Adult [...] on part of yourbody. General instructions Take aynr-her-vurtlwj and prescription medicines only as told by [...] provider. Document Revised: 09/05/2021 Document Reviewed: 09/05/2021 Dispatch Patient Education 2022 [employer]. Follow Up Care 05/16/2023 16:17:01 With:Cheyanne Rosas Address: [address] [place] [address] [place] [phone] [facility] (1) When:05/19/2023 16:52:35 [facility]02-22-2024 Evaluation + Plan noteExtracted from: Title:ED Note [...] Appointment Date:06/13/2023 07:40:00 AM Scheduled Provider:Cheyanne Rincon Location:[facility] Appointment Type:FM New Patient - Adult [facility]02-20-2024 Hospital Discharge instructions Patient Education 05/14/2023 12:06:20 [...] Follow these instructions at home: Medicines Take bhda-nfm-kmthimq and prescription medicines only as told by [...] for Headache and Migraine Patients (CHAMP): headachemigraine.org [employer] Migraine Foundation: [email or web address].org National Headache Foundation: headaches.org [...] provider. Document Revised: 04/27/2020 Document Reviewed: 04/27/2020 Dispatch Patient Education 2022 [employer]. Follow Up Care 05/14/2023 10:21:04 With:Cheyanne Rosas Address: [address], [facility] [address] [address] Business (1) When:05/17/2023 11:54:32 [facility]02-18-2024 Evaluation + Plan noteExtracted from: Title:ED Note Author:Nikhil Tubbs DO Date: Wrist fracture (S62.109A: Fr acture of unspecified carpal bone, unspecified wrist, initial encounter for closed fracture) Ordered: oxycodone, 5 mg = 1 cap(s), Oral, q6hr, PRN Pain 8-10, # 9 cap(s), Refills(s) 0, Pharmacy: [facility]/pharmacy #[id number], 160, cm, 05/12/23 10:26:00 EST, Height/Length Dosing, 114.8, kg, 05/12/23 10:26:00 EST, Weight Dosing Orders: acetaminophen-oxycodone, 1 tab(s), Tab, Oral, Once, Stop date 05/12/23 10:41:00 EST, STAT, Start date 05/12/23 10:41:00 EST Future Appointments Appointment Date:06/13/2023 07:40:00 AM Scheduled Provider:Cheyanne Rincon Location:[facility] Appointment Type: New Patient - Adult [facility]02-18-2024 Hospital Discharge instructions Patient Education 05/12/2023 10:45:04 [...] is stable enough for you to begin lylfi-up-khvbbe exercises. You may also be prescribed pain [...] cast, splint, or sling on yourwrist. Do yunmk-gr-obtyjr exercises only as told by your health care provider or physical therapist. Medicines Take ijat-ffi-exqbqzh and prescription medicines only as told by your health care provider. Ask your health care provider if the medicine prescribed to you: ?Requires you to avoid driving or using machinery. ?Can cause constipation. You may need to take these actions to prevent or treat constipation: ?Drink enough fluid to keep your urine pale yellow. ?Take nlzi-egj-qjplvjb or prescription medicines. ?Eat foods that are [...] provider. Document Revised: 06/21/2020 Document Reviewed: 06/21/2020 Dispatch Patient Education 2022 [employer]. Follow Up Care 05/12/2023 10:19:15 With:Esvin Romero Address: [address] [place] [address]- [facility] (1) When:05/15/2023 10:42:26 Comments:Follow-up with Dr. Romero in office.Take oxycodone as prescribed. You may take the 5 mg oxycodone tablet on top of your baseline Percocet for breakthrough pain from your fracture. [facility]02-17-2024 Hospital Discharge instructions Patient Education 05/11/2023 17:37:45 Wrist Fracture Treated With Immobilization, Ueyb-zu-Vwjo Wrist Fracture Treated With Immobilization A wrist [...] has healed enough, you may begin doing kdokk-co-cvxxcw exercises. Follow these instructions at home: If [...] splint, or sling on your wrist. Do ailhm-yh-xuoaaj exercises only as told by your doctor. Medicines Take fosl-rln-afszixt and prescription medicines only as told by [...] provider. Document Revised: 06/21/2020 Document Reviewed: 06/21/2020 Dispatch Patient Education 2022 [employer]. 05/11/2023 17:37:45 Cast or Splint Care, Adult, Gaei-ul-Mjty Cast or Splint Care, Adult Casts and [...] part of your body. General instructions Take txuf-uwp-qfqqooq and prescription medicines only as told by [...] right away. Call your local emergency services ([address] Do not wait to see [...] provider. Document Revised: 09/05/2021 Document Reviewed: 09/05/2021 Dispatch Patient Education 2022 [employer]. Follow Up Care 05/11/2023 16:21:24 With:Esvin Romero Address: [address] [place] [address]- Business (1) When:05/14/2023 17:17:09 Comments:Call Dr for diagnosis based follow up With:Cheyanne Rosas Address: [address], [facility] [address] [phone]- Business (1) When:05/14/2023 17:17:07 [facility]02-14-2024 Hospital Discharge instructions Patient Education 05/08/2023 13:05:53 Abdominal Pain, Adult, Xgee-cg-Fpxo Abdominal Pain, Adult Many things can cause belly (abdominal) pain. Most times, belly pain is not dangerous. Many cases of belly pain can be watched and treated at home. Sometimes, though, belly pain is serious. Your doctor will try to find the cause of your belly pain. Follow these instructions at home: Medicines Take uuad-eki-amttolt and prescription medicines only as told by [...] your belly pain for any changes. Take ddpq-edi-sxdfqen and prescription medicines only as told by [...] provider. Document Revised: 07/20/2019 Document Reviewed: 07/20/2019 Dispatch Patient Education 2022 [employer]. Follow Up Care 05/08/2023 11:25:27 With:Katharina Kidd Address: [address], [address] [employer] [address] [place] [phone] Business (1) When:05/11/2023 12:34:39 With:Cheyanne Rosas Address: [address], [address] [place] [address]- Business (1) When:05/11/2023 12:34:31 Comments:Follow-up with your primary care provider in 3 to 5 days. If symptoms worsen, do not improve, or new symptoms arise please report back to emergency department for further evaluation. [facility]02-04-2024 Emergency department Note* Laurita Baires RN - 04/28/2023 12:39 AM EST Patient discharged to home, alert and oriented, skin warm, dry and pink. Denies needs and or questions. Will follow-up as directed, patient encouraged to return for worsening or new symptoms or otherconcerns. [id number] Emergency department Note* Laurita Baires RN - [...] return precautions were given. Time of Disposition: 22 New Prescriptions KETOROLAC (TORADOL) 10 MG TABLET [...] injury or complaints. A&Ox4. documented in this encounterOhio[facility] [id number] Hospital Discharge instructions* Discharge Instructions* Sharan Hwang MD - 04/28/2023 12:28 AM EST Dear Jerad Tracy, Thank you for allowing me and the rest of the Emergency Department staff at the [facility] ED to care for you today. [...] can call your insurance company or call [facility] at [phone] for assistance in finding a doctor. If [...] assistance with paying for medications, please visit [email or web address].[employer]/ where you can find the best prices for prescription and rryn-fha-dehwoov medications. Wishing you a speedy recovery, Sharan Hwang MD documented in this encounterOhio[facility] Medical [id number] Emergency department Note* Laurita Baires RN - 04/28/2023 12:24 AM EST Pt ambulated to restroom with steady gait. Pt states her pain has improved and is now 5/10 and tolerable. Physician aware. [facility] [id number] Emergency department Note* Laurita Baires RN - 04/27/2023 11:26 PM EST To bedside for rounding. Pt medicated for 10/10 pain per MAR. Pt resting quietly. No other needs expressed at this time. Call light in reach. [facility] CenterUndgte20-31-4239 Emergency department Note* Laurita Baires RN - 04/27/2023 11:00 PM EST To bedside to introduce self to pt and address needs. Resident at bedside. Pt resting quietly. No needs expressed at this time. Call light within reach. [address]03-2024 Physician Emergency department Note* Sharan Hwang [...] return precautions were given. Time of Disposition: 22 New Prescriptions KETOROLAC (TORADOL) 10 MG TABLET [...] Electronically signed by: Sharan Hwang MD, 04/28/2023 [facility] [id number] Emergency department Note* Rebecca Gómez RN - 04/27/2023 10:39 PM EST Patient arrives to triage stating she has a herniated L4-L5 disc, got on an inversion table tonightand is now having back pain. Denies any other injury or complaints. A&Ox4. [facility] [id number] Evaluation + Plan noteExtracted from: Title:ED Note Author:Annette Watkins, Balbina Celis te:04/26/23 1. Chronic back pain (M54.9: Dorsalgia, unspecified) Other chronic pain (G89.29: Other chronic pain) Orders: ibuprofen, 800 mg = 1 tab(s), Oral, TID, # 30 tab(s), Refills(s) 0, Pharmacy: [facility]/pharmacy #[id number], 160, cm, 04/26/23 9:34:00 EST, Height/Length Dosing, 114.3, kg, 04/26/23 9:34:00 EST, Weight Dosing ketorolac, 60 mg = 2 mL, Injection, IntraMuscular, Once, Stop date 04/26/23 9:37:00 EST, STAT, Start date 04/26/23 9:37:00 EST, 04/26/23 9:37:00 EST morphine, 4 mg = 1 mL, Injection, IntraMuscular, Once, Stop date 04/26/23 9:38:00 EST, STAT, Start date 04/26/23 9:38:00 EST, 04/26/23 9:38:00 EST [facility]02-02-2024 Hospital Discharge instructions Patient Education 04/26/2023 10:11:06 [...] pull them backward. Do not sit or brinell tester one place for long periods of time. [...] prescription pain medicine, or muscle relaxants. Take gfwd-evm-wztiyhj and prescription medicines onlyas told by your health care provider. Ask your health care provider if the medicine prescribed to you: ?Requires you to avoid driving or using machinery. ?Can cause constipation. You may need to take these actions to prevent or treat constipation: ?Drink enough fluid to keep your urine pale yellow. ?Take euna-pds-jhbecac or prescription medicines. ?Eat foods that are [...] provider. Document Revised: 04/20/2020 Document Reviewed: 04/20/2020 Dispatch Patient Education 2022 [employer]. Follow Up Care 04/26/2023 09:28:24 With:ANTONIO HUSAIN Address: [address] [place] [phone] Business (1) When:04/29/2023 10:05:29 Comments:Make sure to follow-up with your neurosurgeon as scheduled and your primary doctor. Return to the emergency room if your pain gets worse, bowel or bladder incontinence, numbness/tingling in the saddle/groin area, weakness in your leg or any new symptoms. [facility]01-29-2024 Hospital Discharge instructions Patient Education 04/22/2023 20:37:29 [...] home: Managing pain, stiffness, and swelling Take cgub-pxl-ugfnvez and prescription medicines only as told by [...] each day. Do not sit, drive, or brinell tester one place for more than 30 minutes [...] put less stress on your back. Take rhix-ajc-sgtfbhx and prescription medicines only as told by your health care provider, and apply heat or ice as told. This information is not intended to replace advice given to you by your health care provider. Make sure you discuss any questions you have with your health care provider. Document Revised: 06/02/2021 Document Reviewed: 06/02/2021 Dispatch Patient Education 2022 [employer]. 04/22/2023 20:37:29 Chronic Back Pain, Ybch-bv-Epiu Chronic Back Pain When back pain lasts [...] pull them backward. Do not sit or brinell tester one place for long periods of time. [...] prescription pain medicine, or muscle relaxants. Take iqja-rrt-geqqhun and prescription medicines only as told by your doctor. Ask your doctor if the medicine prescribed to you: ?Requires you to avoid driving or using machinery. ?Can cause trouble pooping (constipation). You may need to take these actions to prevent or treat trouble pooping: ?Drink enough fluid to keep your pee (urine) pale yellow. ?Take rvbu-gvi-setlunq or prescription medicines. ?Eat foods that are [...] provider. Document Revised: 04/20/2020 Document Reviewed: 04/20/2020 Dispatch Patient Education 2022 [employer]. Follow Up Care 04/22/2023 20:10:10 With:ANTONIO HUSAIN Address: [address] [place] [phone] Business (1) When:04/25/2023 20:23:39 Comments:Follow-up with your primary care provider in 3 to 5 days. If symptoms worsen, do not improve, or new symptoms arise please report back to emergency department for further evaluation. [facility]01-29-2024 Evaluation + Plan noteExtracted from: Title:ED Note [...] Start date 04/22/23 20:19:00 EST, 04/22/23 20:19:00 [facility]01-18-2024 Hospital Discharge instructions Patient Education 04/11/2023 19:08:19 [...] pull them backward. Do not sit or brinell tester one place for long periods of time. [...] prescription pain medicine, or muscle relaxants. Take thvo-kbb-zdtabae and prescription medicines onlyas told by your health care provider. Ask your health care provider if the medicine prescribed to you: ?Requires you to avoid driving or using machinery. ?Can cause constipation. You may need to take these actions to prevent or treat constipation: ?Drink enough fluid to keep your urine pale yellow. ?Take owon-mqv-gnvsxce or prescription medicines. ?Eat foods that are [...] provider. Document Revised: 04/20/2020 Document Reviewed: 04/20/2020 Dispatch Patient Education 2022 [employer]. Follow Up Care 04/11/2023 18:29:24 With:ANTONIO YULYKENANPepe Address: [address] [place] [phone] Business (1) When:04/14/2023 18:58:52 [facility]01-18-2024 Evaluation + Plan noteExtracted from: Title:ED Note [...] date 04/11/23 18:57:00 EST, 04/11/23 18:57:00 EST [facility]01-18-2024 Hospital Discharge instructions Patient Education 04/11/2023 01:37:11 Chronic Back Pain, Hmgw-nq-Duer Chronic Back Pain When back pain lasts [...] pull them backward. Do not sit or brinell tester one place for long periods of time. [...] prescription pain medicine, or muscle relaxants. Take xyof-pft-shpaovs and prescription medicines only as told by your doctor. Ask your doctor if the medicine prescribed to you: ?Requires you to avoid driving or using machinery. ?Can cause trouble pooping (constipation). You may need to take these actions to prevent or treat trouble pooping: ?Drink enough fluid to keep your pee (urine) pale yellow. ?Take qakb-isq-dsuftxh or prescription medicines. ?Eat foods that are [...] provider. Document Revised: 04/20/2020 Document Reviewed: 04/20/2020 Dispatch Patient Education 2022 [employer]. 04/11/2023 01:37:11 Acute Back Pain, Adult Acute [...] home: Managing pain, stiffness, and swelling Take hcra-ozy-ihdxuhb and prescription medicines only as told by [...] each day. Do not sit, drive, or brinell tester one place for more than 30 minutes [...] put less stress on your back. Take vjum-cfj-kjjmnse and prescription medicines only as told by your health care provider, and apply heat or ice as told. This information is not intended to replace advice given to you by your health care provider. Make sure you discuss any questions you have with your health care provider. Document Revised: 06/02/2021 Document Reviewed: 06/02/2021 [employer] Patient Education 2022 [employer]. Follow Up Care 04/10/2023 22:03:35 With:ANTONIO YULYKENANPepe Address: [address] [place] [phone] Business (1) When:Within 3 Day(s) [facility]01-12-2024 Hospital Discharge instructions Patient Education 04/05/2023 15:51:34 [...] Follow these instructions at home: Medicines Take fyxp-gtz-vzgxlqu and prescription medicines only as told by your health care provider. If you were prescribed an antiviral medicine, take it as told by your health care provider. Do not stop using the antiviral even if you start to feel better. Do not take any new medicines, including ghwg-fop-gumzxfp medicines or supplements, unless your health care [...] water are not available, use alcohol-based hand manager product. Cover any cuts or open sores on [...] contagious). Do not take any medicines, including wljt-fie-ikdvqzp medicines or supplements, unless your health care provider approves. This information is not intended to replace advice given to you by your health care provider. Make sure you discuss any questions you have with your health care provider. Document Revised: 01/26/2021 Document Reviewed: 01/26/2021 Dispatch Patient Education 2022 [employer]. 04/05/2023 15:51:34 Abdominal Pain, Adult Abdominal Pain, [...] Follow these instructions at home: Medicines Take cffw-cwu-hstwsww and prescription medicines only as told by [...] Watch your condition for any changes. Take ooku-jsr-gghlcmg and prescription medicines only as told by [...] provider. Document Revised: 04/29/2020 Document Reviewed: 07/20/2019 Dispatch Patient Education 2022 [employer]. Follow Up Care 04/05/2023 12:31:48 With:ANTONIO HUSAIN Address: [address] [place] [phone] Business (1) When:04/08/2023 15:38:51 [facility]01-12-2024 Evaluation + Plan noteExtracted from: Title:ED Note [...] date 04/05/23 13:07:00 EST, 04/05/23 13:07:00 EST [facility]01-10-2024 Hospital Discharge instructions Patient Education 04/02/2023 22:19:34 Chronic Back Pain, Jqwf-wj-Tobc Chronic Back Pain When back pain lasts [...] pull them backward. Do not sit or brinell tester one place for long periods of time. [...] prescription pain medicine, or muscle relaxants. Take lqsy-vcj-qvwevnq and prescription medicines only as told by your doctor. Ask your doctor if the medicine prescribed to you: ?Requires you to avoid driving or using machinery. ?Can cause trouble pooping (constipation). You may need to take these actions to prevent or treat trouble pooping: ?Drink enough fluid to keep your pee (urine) pale yellow. ?Take ggfy-mio-weygmka or prescription medicines. ?Eat foods that are [...] provider. Document Revised: 04/20/2020 Document Reviewed: 04/20/2020 Dispatch Patient Education 2022 [employer]. 04/02/2023 22:19:34 Back Exercises, Lrmx-ht-Mllj Back Exercises These exercises help to make [...] provider. Document Revised: 05/24/2021 Document Reviewed: 05/24/2021 Dispatch Patient Education 2022 [employer] Follow Up Care 04/02/2023 21:42:13 With:ANTONIO HUSAIN Address: [address] [place] [phone] Business (1) When:04/05/2023 21:59:55 Comments:You can take the naproxen every 12 hours as needed for for pain you can use the Robaxin every 8 hours as needed for pain. Please follow-up with your primary care doctor next 2 to 3 days. Please return to the ED for any new or worsening symptoms. [facility]01-09-2024 Evaluation + Plan noteExtracted from: Title:ED Note [...] day(s), # 9 tab(s), Refills(s) 0, Pharmacy: [facility]/pharmacy #[id number], 160, cm, 04/02/23 21:48:00 EST, Height/Length Dosing, 110, kg, 04/02/23 21:48:00 EST, Weight Dosing naproxen, 500 mg = 1 tab(s), Oral, BID, PRN for pain, # 20 tab(s), Refills(s) 0, Pharmacy: [facility]/pharmacy #[id number], 160, cm, 04/02/23 21:48:00 EST, Height/Length Dosing, 110, kg, 04/02/23 21:48:00 EST, Weight Dosing orphenadrine, 60 mg = 2 mL, Injection, IntraMuscular, Once, Stop date 04/02/23 21:58:00 EST, STAT, Start date 04/02/23 21:58:00 EST, 04/02/23 21:58:00 EST oxycodone, 5 mg = 1 tab(s), Tab, Oral, Once, Stop date 04/02/23 21:59:00 EST, STAT, Start date 04/02/23 21:59:00 EST, 04/02/23 21:59:00 EST [facility]01-08-2024 Evaluation + Plan note* Assessment & Plan [...] will see this patient in 6 weeks [facility] Work Phone: 1(445) 139-725201-08-2024 Miscellaneous Notes* Assessment & Plan Note - [...] patient in 6 weeks documented in this [facility] Work Phone: 1(121) 872-717901-08-2024 History of Present illness Narrative* Chidi Yuen [...] HBVDNAQNPCRL , HBVDNAPCR No results found for: UHTM650 , NRES603 === 02/13/23 === US ABDOMEN LIMITED LIVER - Impression - No focal intrahepatic lesions noted. The patient is status post cholecystectomy. MACRO: None Signed by: Harshad Tran 02/14/2023 7:30 AM Dictation workstation: [id number] Chronic hepatitis C without hepatic coma (CMS/HCC) [...] patient in 6 weeks documented in this [facility] Work Phone: 1(590) 467-147501-08-2024 Instructions* Patient Instructions* Elke Haas RN - 04/01/2023 8:20 AM EST [phone] (See below for department name when scheduling) [x] LABS:due date : Now (Labs can be done at any [facility] location) A workup for underlying causes of [...] [facility] is located at the following locations: [facility], [facility], [facility]. YOU SHOULD NOT EAT OR DRINK 3 HOURS BEFORE THE EXAM. [x] FOLLOW UP (Department Gastro): due date : 6 Week If you have any questions or need assistance, please don't hesitate to contact us. Dr. Yuen: Office [phone] Hepatology Nurse Coordinator: Elke SEXTON [phone] documented in this [facility] Work Phone: 1(490) 608-400501-02-2024 Hospital Discharge instructions Patient Education 03/26/2023 12:45:13 [...] Follow these instructions at home: Medicines Take wgzv-fzy-fzysnux and prescription medicines only as told by your health care provider. Ask your health care provider if the medicine prescribed to you: ?Requires you to avoid driving or using heavy machinery. ?Can cause constipation. You may need to take these actions to prevent or treat constipation: ?Drink enough fluid to keep your urine pale yellow. ?Take ljgg-pwt-blqafbp or prescription medicines. ?Eat foods that are [...] provider. Document Revised: 07/03/2019 Document Reviewed: 04/23/2019 [employer] Patient Education 2022 [employer]. Follow Up Care 03/26/2023 10:48:18 With:ANTONIO SOCORRO Address: [address] [place] [address] [phone] Business (1) When:Within 3 Day(s) [facility]01-02-2024 Evaluation + Plan noteExtracted from: Title:ED Note Author:Jorge Mcintosh DO Date:03/26 Migraine (G43.909: Migraine, unspecified, not intractable, [...] day(s), # 15 tab(s), Refills(s) 0, Pharmacy: [facility]/pharmacy #[id number], 160, cm, 03/26/23 10:58:00 EST, Height/Length [...] 03/26/23 11:06:00 EST, Infuse over 61, minute(s) [facility]12-30-2023 Hospital Discharge instructions Patient Education 03/23/2023 13:57:23 [...] home: Managing pain, stiffness, and swelling Take qeta-vmd-zmqpihp and prescription medicines only as told by [...] each day. Do not sit, drive, or brinell tester one place for more than 30 minutes [...] put less stress on your back. Take jszw-qlr-asolwhz and prescription medicines only as told by your health care provider, and apply heat or ice as told. This information is not intended to replace advice given to you by your health care provider. Make sure you discuss any questions you have with your health care provider. Document Revised: 06/02/2021 Document Reviewed: 06/02/2021 [employer] Patient Education 2022 [employer]. 03/23/2023 13:57:23 Chronic Back Pain, Rexe-rp-Chcq Chronic Back Pain When back pain lasts [...] pull them backward. Do not sit or brinell tester one place for long periods of time. [...] prescription pain medicine, or muscle relaxants. Take ncjj-zcb-ttfahgn and prescription medicines only as told by your doctor. Ask your doctor if the medicine prescribed to you: ?Requires you to avoid driving or using machinery. ?Can cause trouble pooping (constipation). You may need to take these actions to prevent or treat trouble pooping: ?Drink enough fluid to keep your pee (urine) pale yellow. ?Take arln-odj-difsylo or prescription medicines. ?Eat foods that are [...] provider. Document Revised: 04/20/2020 Document Reviewed: 04/20/2020 [employer]patch Patient Education 2022 [employer]. 03/23/2023 13:57:23 Back Exercises, Iruy-nh-Wvwo Back Exercises These exercises help to make [...] provider. Document Revised: 05/24/2021 Document Reviewed: 05/24/2021 [employer] Patient Education 2022 [employer] Follow Up Care 03/23/2023 12:41:35 With:[facility]: [place] [phone] Address:Unknown When:03/26/2023 13:05:55 With:ANTONIO HUSAIN Address: [address] [place] [phone]- [phone] Business (1) When:03/26/2023 13:05:48 Comments:Follow-up with your primary care provider in 3 to 5 days. If symptoms worsen, do not improve, or new symptoms arise please report back to emergency department for further evaluation. [facility]12-30-2023 Evaluation + Plan noteExtracted from: Title:ED Note Author:Yaw MILES, Landon Celis te:03/23/23 Chronic back pain (M54.9: Do rsalgia, unspecified) Other chronic pain (G89.29: Other chronic pain) Orders: ibuprofen, 800 mg = 1 tab(s), Oral, q8hr, # 30 tab(s), Refills(s) 0, Pharmacy: [facility]/pharmacy #[id number], 160, cm, 03/23/23 12:50:00 EST, Height/Length [...] date 03/23/23 13:03:00 EST, 03/23/23 13:03:00 EST [facility]12-27-2023 Hospital Discharge instructions Patient Education 03/20/2023 13:38:51 [...] pull them backward. Do not sit or brinell tester one place for long periods of time. [...] prescription pain medicine, or muscle relaxants. Take pbko-qkt-alkdumj and prescription medicines onlyas told by your health care provider. Ask your health care provider if the medicine prescribed to you: ?Requires you to avoid driving or using machinery. ?Can cause constipation. You may need to take these actions to prevent or treat constipation: ?Drink enough fluid to keep your urine pale yellow. ?Take yidz-itv-vldephx or prescription medicines. ?Eat foods that are [...] provider. Document Revised: 04/20/2020 Document Reviewed: 04/20/2020 [employer] Patient Education 2022 [employer]. 03/20/2023 13:38:51 Acute Pain, Adult Acute Pain, [...] Follow these instructions at home: Medicines Take kyht-ubp-ijklyhw and prescription medicines only as told by [...] pain is severe. ?Do not take other srwy-wva-hdfhagc pain medicines in addition to prescription pain [...] grains, and fresh fruits and vegetables. ?Take wrcw-tze-soyykbi or prescription medicines. ?Limit foods that are [...] or you are no longer ill. Take gfzn-iai-yombixk and prescription medicines only as told by [...] provider. Document Revised: 07/26/2022 Document Reviewed: 07/27/2019 [employer]patch Patient Education 2022 [employer]. 03/20/2023 13:38:51 Radicular Pain Radicular Pain Radicular [...] knees and rising up. Do strength and azrgi-pu-geipoj exercises only as told by your health care provider or physical therapist. General instructions Take ezqz-knf-ndpthwi and prescription medicines only as told by [...] provider. Document Revised: 09/14/2021 Document Reviewed: 09/14/2021 [employer] Patient Education 2022 [employer]. Follow Up Care 03/20/2023 12:42:50 With:ANTONIO HUSAIN Address: [address] [place] [phone]- [phone] Business (1) When:03/23/2023 13:25:02 Comments:Follow-up with your primary care provider in 3 to 5 days. If symptoms worsen, do not improve, or new symptoms arise please report back to emergency department for further evaluation. [facility]12-27-2023 Evaluation + Plan noteExtracted from: Title:ED Note Author:Landon Tidwell PA-C te:03/20/23 Lumbago with sciatica, right side (M54.41: Lumbago with sciatica, right side) Orders: ketorolac, 60 mg = 2 mL, Injection, IntraMuscular, Once, Stop date 03/20/23 13:21:00 EST, STAT, Start date 03/20/23 13:21:00 EST, 03/20/23 13:21:00 EST morphine, 4 mg = 1 mL, Injection, IntraMuscular, Once, Stop date 03/20/23 13:21:00 EST, STAT, Start date 03/20/23 13:21:00 EST, 03/20/23 13:21:00 EST [facility]12-18-2023 Evaluation + Plan noteExtracted from: Title:ED Note [...] Function Panel Lipase Level Rapid COVID Antigen ([facility]) [facility]12-18-2023 Hospital Discharge instructions Follow Up Care 03/11/2023 08:57:16 With:ANTONIO HUSAIN Address: [address] [place] [address] 1999[address]- [phone] Business (1) When:Within 3 Day(s) [facility]11-21-2023 Hospital Discharge instructions Patient Education 02/12/2023 21:11:24 [...] pull them backward. Do not sit or brinell tester one place for long periods of time. [...] prescription pain medicine, or muscle relaxants. Take vouj-dgn-ffhyfoi and prescription medicines onlyas told by your health care provider. Ask your health care provider if the medicine prescribed to you: ?Requires you to avoid driving or using machinery. ?Can cause constipation. You may need to take these actions to prevent or treat constipation: ?Drink enough fluid to keep your urine pale yellow. ?Take mdef-cdu-axvvacx or prescription medicines. ?Eat foods that are [...] provider. Document Revised: 04/20/2020 Document Reviewed: 04/20/2020 [employer]patch Patient Education 2022 [employer]. Follow Up Care 02/12/2023 19:28:18 With:DALTON JAMES Address: [address] [address] Business (1) When:02/15/2023 20:41:14 [facility]11-21-2023 Evaluation + Plan noteExtracted from: Title:ED Note [...] date 02/12/23 20:39:00 EST, 02/12/23 20:39:00 EST [facility]11-16-2023 Hospital Discharge instructions Patient Education 02/07/2023 20:30:36 Chronic Back Pain, Rlnc-yf-Omsr Chronic Back Pain When back pain lasts [...] pull them backward. Do not sit or brinell tester one place for long periods of time. [...] prescription pain medicine, or muscle relaxants. Take wjpe-lmj-pkizyqy and prescription medicines only as told by your doctor. Ask your doctor if the medicine prescribed to you: ?Requires you to avoid driving or using machinery. ?Can cause trouble pooping (constipation). You may need to take these actions to prevent or treat trouble pooping: ?Drink enough fluid to keep your pee (urine) pale yellow. ?Take chiu-awk-tngxuam or prescription medicines. ?Eat foods that are [...] provider. Document Revised: 04/20/2020 Document Reviewed: 04/20/2020 [employer]patch Patient Education 2022 [employer]. 02/07/2023 20:30:36 Back Exercises, Qwam-ou-Puxn Back Exercises These exercises help to make [...] provider. Document Revised: 05/24/2021 Document Reviewed: 05/24/2021 [employer] Patient Education 2022 [employer]. Follow Up Care 02/07/2023 19:11:26 With:Declan COLVIN Address: [address] [place] [id number] [facility] (1) When:02/10/2023 19:59:42 Comments:Take the steroids once daily until you have completed the course. You can use the anti-inflammatory, muscle relaxers as prescribed as needed for pain. Please follow-up with your primary care doctor in addition to spine doctor for further evaluation and management. With:XXXX NONE Address: [place] When:Within 3 Day(s) [facility]11-07-2023 Hospital Discharge instructions Patient Education 01/29/2023 12:30:56 [...] Follow these instructions at home: Medicines Take wmyh-aqt-icgcdtc and prescription medicines only as told by your health care provider. Ask your health care provider if the medicine prescribed to you: ?Requires you to avoid driving or using machinery. ?Can cause constipation. You may need to take these actions to prevent or treat constipation: ?Drink enough fluid to keep your urine pale yellow. ?Take nzla-frk-ammqxtx or prescription medicines. ?Eat foods that are [...] department or: Call your local emergency services (463 in the [place] Call a suicide crisis helpline, such as the National Suicide Prevention Lifeline at or 190 in the [place] This is open 24 hours a day in the [place] Text the Crisis Text Line at 448479 (in the [place] Summary Chronic pain is [...] provider. Document Revised: 10/04/2021 Document Reviewed: 11/26/2019 [employer] Patient Education 2022 [employer]. Follow Up Care 01/29/2023 11:30:42 With:Luís Mar Address: [facility] [address] [address]- [employer] (1) When:02/01/2023 12:09:50 [facility]10-31-2023 Hospital Discharge instructions Patient Education 01/22/2023 19:37:08 Chronic Back Pain, Tkvv-vy-Srvh Chronic Back Pain When back pain lasts [...] pull them backward. Do not sit or brinell tester one place for long periods of time. [...] prescription pain medicine, or muscle relaxants. Take tmdc-niw-sdshzhg and prescription medicines only as told by your doctor. Ask your doctor if the medicine prescribed to you: ?Requires you to avoid driving or using machinery. ?Can cause trouble pooping (constipation). You may need to take these actions to prevent or treat trouble pooping: ?Drink enough fluid to keep your pee (urine) pale yellow. ?Take cugz-hvh-xaosvda or prescription medicines. ?Eat foods that are [...] provider. Document Revised: 04/20/2020 Document Reviewed: 04/20/2020 Dispatch Patient Education 2022 [employer]. Follow Up Care 01/22/2023 18:45:34 With:Peña Salazar Address: [address] [place] [phone] Business (1) When:01/25/2023 19:09:36 Comments:Follow-up with your primary care provider in 3 to 5 days. If symptoms worsen, do not improve, or new symptoms arise please report back to emergency department for further evaluation. [facility]10-31-2023 Evaluation + Plan noteExtracted from: Title:ED Note [...] date 01/22/23 19:08:00 EDT, 01/22/23 19:08:00 EDT [facility]10-31-2023 History of Present illness Narrative* Jori Cam MD PhD - 01/22/2023 1:30 PM EDT It was a pleasure to see Ms. Tracy at the [facility] at [facility]. Patient is a 47 year old who [...] All questions were answered. documented in this [facility] Work Phone: 1(114) 366-400410-24-2023 History of Present illness Narrative* Antonio Husain PA-C - 01/15/2023 1:10 PM EDT Subjective Patient ID: Jerad Tracy is a 47 y.o. female who presents for [facility] (Patient transferring Care form [place], [place], last seen by PCP 3 months ago./Colonoscopy done 04/2022 and bone density done 10/2022 at [facility], mammogram scheduled for 01-17-23 and Pap done over 5 years.) and Weight Loss (Patient would like to discuss weight loss options.). HPI Patient presents to [facility]. Patient has medical history of depression, herniated [...] some time and was previously seen in [place] by neurosurgery. Patient reports inability to get [...] Controlled substance agreement signed [facility]: 1(161) 200-832110-23-2023 Hospital Discharge instructions Patient Education 01/14/2023 15:50:08 [...] pull them backward. Do not sit or brinell tester one place for long periods of time. [...] prescription pain medicine, or muscle relaxants. Take qxey-pfj-pkrpzni and prescription medicines onlyas told by your health care provider. Ask your health care provider if the medicine prescribed to you: ?Requires you to avoid driving or using machinery. ?Can cause constipation. You may need to take these actions to prevent or treat constipation: ?Drink enough fluid to keep your urine pale yellow. ?Take ezer-qtc-xvigbqu or prescription medicines. ?Eat foods that are [...] provider. Document Revised: 04/20/2020 Document Reviewed: 04/20/2020 [employer]patch Patient Education 2022 [employer]. 01/14/2023 15:50:08 Back Exercises, Trpl-bo-Ngko Back Exercises These exercises help to make [...] provider. Document Revised: 05/24/2021 Document Reviewed: 05/24/2021 Dispatch Patient Education 2022 [employer]. Follow Up Care 01/14/2023 14:32:06 With:Domenic Sher Address: [address] [place] [address] [place] [address]- Business (1) When:01/17/2023 15:23:38 [facility]10-23-2023 Evaluation + Plan noteExtracted from: Title:ED Note Author:Eden Salomon ate:01/14/23 Chronic back pain (M54.9: Do rsalgia, unspecified) [facility]10-21-2023 Hospital Discharge instructions Patient Education 01/12/2023 21:42:49 [...] home: Managing pain, stiffness, and swelling Take pvlp-wbl-jwqrjlr and prescription medicines only as told by [...] each day. Do not sit, drive, or brinell tester one place for more than 30 minutes [...] put less stress on your back. Take dnex-vvn-mvhxrsj and prescription medicines only as told by your health care provider, and apply heat or ice as told. This information is not intended to replace advice given to you by your health care provider. Make sure you discuss any questions you have with your health care provider. Document Revised: 06/02/2021 Document Reviewed: 06/02/2021 Else[employer] Patient Education 2022 [employer]. 01/12/2023 21:42:49 Contusion Contusion A contusion is [...] sitting or lying down. General instructions Take nvhd-zae-vgwjbfl and prescription medicines only as told by [...] compression, and elevation. You may be given pzkt-byi-vvlhhyj medicines for pain. Contact a health care [...] provider. Document Revised: 01/23/2022 Document Reviewed: 01/04/2022 Dispatch Patient Education 2022 [employer]. Follow Up Care 01/12/2023 20:23:40 With:Alondra LIZETT Address: [address] [place] [address] [address] [place] [address] Business (1) When:01/15/2023 21:37:43 Comments:Return to the emergency room if your pain gets worse or any new symptoms. [facility]10-21-2023 Evaluation + Plan noteExtracted from: Title:ED Note [...] XR Spine Lumbosacral 2 or 3 Views [facility]10-19-2023 Evaluation + Plan noteExtracted from: Title:ED Note [...] day(s), # 21 tab(s), Refills(s) 0, Pharmacy: [facility]/pharmacy #[id number], 160, cm, 01/10/23 10:36:00 EDT, Height/Length Dosing, 115.7, kg, 01/10/23 10:36:00 EDT, Weight Dosing morphine, 4 mg = 2 mL, Injection, IntraMuscular, Once, Stop date 01/10/23 11:37:00 EDT, STAT, Start date 01/10/23 11:37:00 EDT, 01/10/23 11:37:00 EDT [facility]10-19-2023 Evaluation note* Encounter Date Diagnosis Assessment Notes [...] would like to go back to the [facility] and does not like coming all the way out to [place] for the pain management. Dec, Lumbosacral spondylosis (ICD-10 - M47.817) Dec, Chronic pain (ICD-10 - G89.29) [facility] 10-19-2023 Hospital Discharge instructions Patient Education [...] home: Managing pain, stiffness, and swelling Take rbcf-bdk-tgnnvbd and prescription medicines only as told by [...] each day. Do not sit, drive, or brinell tester one place for more than 30 minutes [...] put less stress on your back. Take oafb-kve-eecscwx and prescription medicines only as told by your health care provider, and apply heat or ice as told. This information is not intended to replace advice given to you by your health care provider. Make sure you discuss any questions you have with your health care provider. Document Revised: 06/02/2021 Document Reviewed: 06/02/2021 [employer]patch Patient Education 2022 [employer]. Follow Up Care 01/10/2023 10:31:11 With:Joe Meza Address: [address] [place], [place] [phone] [facility] (1) When:01/13/2023 11:35:28 Comments:Call the office of [...] breath, or any new or worsening symptoms. [facility]10-15-2023 Hospital Discharge instructions Additional Instructions Take medication as prescribed Follow-up with the doctor as scheduled this week Return to the ER for worsening pain fever weakness in her legs loss of bladder bowel control or [facility] Phone: 1(803) 333-713610-15-2023 Hospital Discharge instructions Additional Instructions Keep follow up appointment with [facility] neurosurgery this week. She is uncertain of the name of the provider she is seeing. She was referred to the [facility] last week by Dr. Meza. [facility] Work Phone: 1([phone]) 125-705610-14-2023 Evaluation + Plan noteExtracted from: Title:ED Note [...] BID, # 20 tab(s), Refills(s) 0, Pharmacy: [facility]/pharmacy #[id number], 160, cm, 01/04/23 21:16:00 EDT, Height/Length Dosing, 114.7, kg, 01/04/23 21:16:00 EDT, Weight Dosing orphenadrine, 60 mg = 2 mL, Injection, IntraMuscular, Once, Stop date 01/04/23 21:39:00 EDT, STAT, Start date 01/04/23 21:39:00 EDT, 01/04/23 21:39:[address] Spine Lumbar w/o Contrast XR Hip 2-3 Views Left + Pelvis [facility]10-14-2023 Hospital Discharge instructions Patient Education 01/05/2023 00:38:20 [...] Follow these instructions at home: Medicines Take lyfe-ose-wlrplfe and prescription medicines only as told by your health care provider. Ask your health care provider if the medicine prescribed to you: ?Requires you to avoid driving or using heavy machinery. ?Can cause constipation. You may need to take these actions to prevent or treat constipation: ?Drink enough fluid to keep your urine pale yellow. ?Take gbjo-noz-bzuxwxf or prescription medicines. ?Eat foods that are [...] provider. Document Revised: 06/29/2020 Document Reviewed: 06/29/2020 [employer]patch Patient Education 2022 [employer]. 01/05/2023 00:38:20 Contusion Contusion A contusion is [...] sitting or lying down. General instructions Take obmt-olu-rqoysxx and prescription medicines only as told by [...] compression, and elevation. You may be given kfyz-ses-ttjdryj medicines for pain. Contact a health care [...] provider. Document Revised: 01/23/2022 Document Reviewed: 01/04/2022 [employer]patch Patient Education 20[employer]. Follow Up Care 01/04/2023 21:05:36 With:Joe Meza Address: [address] [place] [address]- [employer] (1) When:01/08/2023 Comments:Return to the emergency room if your pain gets worse, bowel or bladder incontinence, numbness/tingling in the saddle/groin area or any new symptoms. [facility]10-11-2023 Hospital Discharge instructions Patient Education 01/02/2023 16:56:30 Chronic Back Pain, Xnxq-pr-Lwks Chronic Back Pain When back pain lasts [...] pull them backward. Do not sit or brinell tester one place for long periods of time. [...] prescription pain medicine, or muscle relaxants. Take pykr-mcl-zcoxloe and prescription medicines only as told by your doctor. Ask your doctor if the medicine prescribed to you: ?Requires you to avoid driving or using machinery. ?Can cause trouble pooping (constipation). You may need to take these actions to prevent or treat trouble pooping: ?Drink enough fluid to keep your pee (urine) pale yellow. ?Take kftn-jzy-hxnpqfy or prescription medicines. ?Eat foods that are [...] provider. Document Revised: 04/20/2020 Document Reviewed: 04/20/2020 [employer]patch Patient Education 2022 [employer] Follow Up Care 01/02/2023 15:59:31 With:Joe Derrick Address: [address] [place], [place] [phone] Business (1) When:01/05/2023 16:20:40 [facility]10-11-2023 Evaluation + Plan noteExtracted from: Title:ED Note [...] Nausea/Vomiting, # 12 tab(s), Refills(s) 0, Pharmacy: [facility]/pharmacy #[id number], 160, cm, 01/02/23 16:09:00 EDT, Height/Length Dosing, 114.2, kg, 01/02/23 16:09:00 EDT, Weight Dosing [facility]10-05-2023 Evaluation note* Encounter Date Diagnosis Assessment Notes [...] Lumbar degenerative disc disease (ICD-10 - M51.36) [facility] 10-04-2023 Hospital Discharge instructions Patient Education [...] pull them backward. Do not sit or brinell tester one place for long periods of time. [...] prescription pain medicine, or muscle relaxants. Take klxv-mew-vvpxemq and prescription medicines onlyas told by your health care provider. Ask your health care provider if the medicine prescribed to you: ?Requires you to avoid driving or using machinery. ?Can cause constipation. You may need to take these actions to prevent or treat constipation: ?Drink enough fluid to keep your urine pale yellow. ?Take dgbi-wfc-ewybdje or prescription medicines. ?Eat foods that are [...] provider. Document Revised: 04/20/2020 Document Reviewed: 04/20/2020 Dispatch Patient Education 2022 [employer]. Follow Up Care 12/26/2022 16:21:06 With:Bridger Del Rosario Address: [address] [place] [address] [facility], [place] [address] Business (1) When:12/29/2022 16:53:27 [facility]10-04-2023 Evaluation + Plan noteExtracted from: Title:ED Note [...] date 12/26/22 16:52:00 EDT, 12/26/22 16:52:00 EDT [facility]10-04-2023 Evaluation note* Encounter Date Diagnosis Assessment Notes [...] pain (ICD-10 - G89.29) No follow up. [facility] Other 10-01-2023 Hospital Discharge instructions Patient Education [...] home: Managing pain, stiffness, and swelling Take cgis-pfo-czxxkmx and prescription medicines only as told by [...] each day. Do not sit, drive, or brinell tester one place for more than 30 minutes [...] put less stress on your back. Take iois-egv-szchlaz and prescription medicines only as told by your health care provider, and apply heat or ice as told. This information is not intended to replace advice given to you by your health care provider. Make sure you discuss any questions you have with your health care provider. Document Revised: 06/02/2021 Document Reviewed: 06/02/2021 [employer]patch Patient Education 2022 [employer] Follow Up Care 12/23/2022 16:55:38 With:Keep upcoming appointment with your spinal surgeon Address:Unknown When:12/26/2022 18:30:08 Comments:Seek immediate medical attention if you develop: increasing pain, numbness, tingling, weakness, loss of motion in your arms or legs, loss of control of your urine or stool, fever, abdominal pain, chest pain, shortness of breath, or any new or worsening symptoms. [facility]10-01-2023 Evaluation + Plan noteExtracted from: Title:ED Note [...] day(s), # 15 tab(s), Refills(s) 0, Pharmacy: [facility]/pharmacy #[id number], 160, cm, 12/23/22 17:18:00 EDT, Height/Length Dosing, 113.8, kg, 12/23/22 17:18:00 EDT, Weight Dosing ketorolac, 60 mg = 2 mL, Injection, IntraMuscular, Once, Stop date 12/23/22 18:00:00 EDT, STAT, Start date 12/23/22 18:00:00 EDT, 12/23/22 18:00:00 EDT lidocaine topical, 1 patch(es), Topical, Daily Pain, 7 EA, Refill(s) 0, apply 12 hours on and 12 hours off daily, [id number], 160, cm, 12/23/22 17:18:00 EDT, Height/Length Dosing, 113.8, kg, 12/23/22 17:18:00 EDT, Weight Dosing naproxen, 500 mg = 1 tab(s), Oral, BID, PRN for pain, # 20 tab(s), Refills(s) 0, Pharmacy: [facility]/pharmacy #[id number], 160, cm, 12/23/22 17:18:00 EDT, Height/Length Dosing, 113.8, kg, 12/23/22 17:18:00 EDT, Weight Dosing XR Spine Lumbosacral 2 or 3 Views [facility]09-26-2023 Hospital Discharge instructions Patient Education 12/18/2022 13:31:19 [...] home: Managing pain, stiffness, and swelling Take casj-xun-ermwybh and prescription medicines only as told by [...] each day. Do not sit, drive, or brinell tester one place for more than 30 minutes [...] put less stress on your back. Take wzhl-vbd-ywznasi and prescription medicines only as told by your health care provider, and apply heat or ice as told. This information is not intended to replace advice given to you by your health care provider. Make sure you discuss any questions you have with your health care provider. Document Revised: 06/02/2021 Document Reviewed: 06/02/2021 Dispatch Patient Education 2022 [employer]. Follow Up Care 12/18/2022 12:20:19 With:Joe Meza Address: [address] [place], [place] [id number] [facility] (1) When:12/21/2022 12:52:24 [facility]09-21-2023 Hospital Discharge instructions Patient Education 12/13/2022 19:09:28 [...] pull them backward. Do not sit or brinell tester one place for long periods of time. [...] prescription pain medicine, or muscle relaxants. Take sbiv-rzo-kohjmic and prescription medicines onlyas told by your health care provider. Ask your health care provider if the medicine prescribed to you: ?Requires you to avoid driving or using machinery. ?Can cause constipation. You may need to take these actions to prevent or treat constipation: ?Drink enough fluid to keep your urine pale yellow. ?Take abmq-dlk-upokphu or prescription medicines. ?Eat foods that are [...] provider. Document Revised: 04/20/2020 Document Reviewed: 04/20/2020 Dispatch Patient Education 2022 [employer]. Follow Up Care 12/13/2022 17:19:50 With:Joe Meza Address: [address] [place] [phone] Business (1) When:12/16/2022 18:50:16 [facility]09-21-2023 Hospital Discharge instructions Patient Education 12/12/2022 23:52:47 [...] hard liquor (44 mL). General instructions Take wvjb-jvs-sbsditf and prescription medicines only as told by [...] provider. Document Revised: 11/20/2021 Document Reviewed: 11/20/2021 Dispatch Patient Education 2022 [employer]. 12/12/2022 23:52:47 Chronic Back Pain Chronic Back [...] pull them backward. Do not sit or brinell tester one place for long periods of time. [...] prescription pain medicine, or muscle relaxants. Take difa-xds-okagbof and prescription medicines onlyas told by your health care provider. Ask your health care provider if the medicine prescribed to you: ?Requires you to avoid driving or using machinery. ?Can cause constipation. You may need to take these actions to prevent or treat constipation: ?Drink enough fluid to keep your urine pale yellow. ?Take amon-uez-cqoepkj or prescription medicines. ?Eat foods that are [...] provider. Document Revised: 04/20/2020 Document Reviewed: 04/20/2020 Dispatch Patient Education 2022 [employer]. Follow Up Care 12/12/2022 20:51:35 With:XXXX NONE Address: [place] When:12/15/2022 Comments:[facility] care [facility] [...] you develop any new or worsening symptoms. [facility]09-20-2023 Evaluation + Plan noteExtracted from: Title:ED Note Author:Noemí MILES, Sam Hernandez Gerry e:12/12/22 Low back pain (M54.50: Low [...] Lumbar w/o Contrast XR Chest Single View [facility]09-20-2023 Procedure [facility]09-15-2023 Hospital Discharge instructions Patient Education 12/07/2022 18:55:05 Chronic Back Pain, Eqtk-pa-Ffra Chronic Back Pain When back pain lasts [...] pull them backward. Do not sit or brinell tester one place for long periods of time. [...] prescription pain medicine, or muscle relaxants. Take wfjm-ygu-zutfvfj and prescription medicines only as told by your doctor. Ask your doctor if the medicine prescribed to you: ?Requires you to avoid driving or using machinery. ?Can cause trouble pooping (constipation). You may need to take these actions to prevent or treat trouble pooping: ?Drink enough fluid to keep your pee (urine) pale yellow. ?Take uwfr-pvh-qckfgak or prescription medicines. ?Eat foods that are [...] provider. Document Revised: 04/20/2020 Document Reviewed: 04/20/2020 Dispatch Patient Education 2022 [employer] 12/07/2022 18:55:05 Acute Back Pain, Adult Acute [...] home: Managing pain, stiffness, and swelling Take xpcp-vgh-cklisku and prescription medicines only as told by [...] each day. Do not sit, drive, or brinell tester one place for more than 30 minutes [...] your local emergency services (911 in the .[place] Do not drive yourself to the hospital. Summary Acute back pain is sudden and usually short-lived. Use proper lifting techniques. When you bend and lift, use positions that put less stress on your back. Take mygl-ptx-meixwqb and prescription medicines only as told by your health care provider, and apply heat or ice as told. This information is not intended to replace advice given to you by your health care provider. Make sure you discuss any questions you have with your health care provider. Document Revised: 06/02/2021 Document Reviewed: 06/02/2021 Dispatch Patient Education 2022 [employer]. Follow Up Care 12/07/2022 16:26:15 With:Peña Salazar Address: [address] [place] [phone] Business (1) When:12/10/2022 18:30:41 Comments:Follow-up with your primary care provider in 3 to 5 days. If symptoms worsen, do not improve, or new symptoms arise please report back to emergency department for further evaluation. [facility]09-12-2023 Emergency department Note* Zoey Dan RN - 12/04/2022 8:25 PM EDT Patient discharged to home, alert and oriented, skin warm, dry and pink. Denies needs and or questions. Will follow-up as directed, patient encouraged to return for worsening or new symptoms or otherconcerns. [id number] Emergency department Note* Zoey Dan RN - [...] disease. She drove over the weekend from [facility] where she lives and exacerbated her back [...] 75 mcg, 75 mcg, Subcutaneous, Dinorah, Allyson Griffiths,DO ondansetron (ZOFRAN ODT) RAPID DISSOLVING [...] Management: Outpatient management with her neurosurgeon in [place] FINAL IMPRESSION: 1 --acute on chronic lower [...] been flaring up worse. documented in this encounterOhio[facility] [id number] Emergency department Note* Zoey Dan RN - 12/04/2022 8:08 PM EDT Patient medicated per [place]. Respirations even and unlabored. Skin warm and dry. [facility] [id number] Physician Emergency department Note* Allyson Griffiths DO - 12/04/2022 7:58 PM EDT Chief Complaint: Lower lumbar back pain that radiates to the right leg history of lumbar disc disease HPI: Jerad Tracy is a 47 year old female who presents with a complaint that she does have a known history of lumbar disc disease. She drove over the weekend from [facility] where she lives and exacerbated her back [...] Management: Outpatient management with her neurosurgeon in [place] FINAL IMPRESSION: 1 --acute on chronic lower lumbar back pain with history of lumbar disc disease 2 -- 3 -- I have reviewed the past medical, family, and social history sections including the medications andallergies listed in the above medical record. Electronically signed by: Allyson Griffiths DO, 12/04/2022 7:58 PM [facility] [id number] Emergency department Note* Zoey Dan RN - 12/04/2022 7:54 PM EDT Provider at bedside. [facility] [id number] Emergency department Note* Radha Spivey RN - 12/04/2022 7:08 PM EDT Patient arrives ambulatory to triage with c/o herniated disc in her back, states this is a chronic issue but the pain has been flaring up worse. [facility] [id number] [facility] Evaluation note* Encounter Date Diagnosis Assessment [...] (ICD-10 - G89.29) Follow up after procedure. [facility] Other 08-15-2023 Evaluation note* Encounter Date Diagnosis [...] SI (sacroiliac) joint inflammation (ICD-10 - M46.1) [facility] Other 07-05-2023 Evaluation note* Encounter Date Diagnosis [...] procedure. Sep, Other UDS performe d through [employer] lab today, will await confirmatory results. [facility] Other 06-28-2023 [facility] Hospital Discharge instructions Patient Education 09/04/2022 20:33:40 [...] pull them backward. Do not sit or brinell tester one place for long periods of time. [...] prescription pain medicine, or muscle relaxants. Take jsln-iul-xlbsjuf and prescription medicines onlyas told by your health care provider. Ask your health care provider if the medicine prescribed to you: ?Requires you to avoid driving or using machinery. ?Can cause constipation. You may need to take these actions to prevent or treat constipation: ?Drink enough fluid to keep your urine pale yellow. ?Take sjvn-vxi-attvxwe or prescription medicines. ?Eat foods that are [...] provider. Document Revised: 04/20/2020 Document Reviewed: 04/20/2020 Dispatch Patient Education 2022 [employer]. Follow Up Care 09/04/2022 19:08:34 With:Pain Clinic: [facility] [phone] Address:Unknown When:09/07/2022 20:33:32 With:XXXX NONE Address: [place] When:Within 3 Day(s) [facility]06-13-2023 Evaluation + Plan noteExtracted from: Title:ED Note Author:Sam Dowd PA-C e:09/04/22 Chronic back pain (M54.9: Do rsalgia, unspecified) Other chronic pain (G89.29: Other chronic pain) Orders: ketorolac, 60 mg = 2 mL, Injection, IntraMuscular, Once, Stop date 09/04/22 20:29:00 EDT, STAT, Start date 09/04/22 20:29:00 EDT, 09/04/22 20:29:00 EDT [facility]06-13-2023 Evaluation note* Encounter Date Diagnosis Assessment Notes [...] she is waiting to be scheduled at [facility] for this. Prior to examining the patient, [...] negative findings were considered in medical decision-making. [facility] Other 05-30-2023 Evaluation note* Encounter Date Diagnosis [...] 4-6 pounds of pressure on the spine. [facility] Other 01-06-2022 Evaluation note* Encounter Date Diagnosis [...] Above note written by Ina Regalado LPN, [place] Fisherman. Edited and approved by Dr. Avery Goodman [...] negative findings were considered in medical decision-making. [facility] Other 11-24-2021 Evaluation note* Encounter Date Diagnosis [...] We will send a referral to Dr Susie Goodman for further treatment options. A reill for Cyclobenzaprine was given today. Possible side effects to medication reveiwed with the patient, patint verbalized understanding and denies any concerns at this time. [facility] Other Evaluation + Plan note No data available for this section [facility] Plan noteExtracted from: Title:ED Note Author:Elisa [...] date 02/07/23 19:57:00 EST, 02/07/23 19:57:00 EST [facility] Future Appointments Appointment Date:06/13/2023 07:40:00 AM Scheduled Provider:Cheyanne Rincon Location:[facility] Appointment Type:FM New Patient - Adult [facility] Future Appointments Appointment Date:08/14/2023 03:15:00 PM Scheduled Provider:Domenic Sher DO Location:[facility] Appointment Type:Pain Management - Follow Up (FT) Future Scheduled Tests Laboratory* TSH With T4fr Reflex 07/17/23 * Urinalysis with Micro 07/17/23 * Lipid Panel 07/17/23 * Drug Screen Urine 07/17/23 Radiology* MA Mamm Screen w/CAD if perf and 3D Kenan 07/17/23 [facility] Evaluation + Plan note Future Appointments Appointment Date:11/13/2023 08:00:00 AM Scheduled Provider:Domenic Sher DO Location:[facility] Appointment Type:Pain Management - Follow Up (FT) Future Scheduled Tests Laboratory* TSH With T4fr Reflex 07/17/23 * Urinalysis with Micro 07/17/23 * Lipid Panel 07/17/23 * Drug Screen Urine 07/17/23 Radiology* MA Mamm Screen w/CAD if perf and 3D Kenan 07/17/23 [facility] evaluation noteNo InformationNort [employer] Other Evaluation noteNo assessment information available [facility] Work Phone: Evaluation note* Diagnosis Onset Date Resolution Status Rectal bleeding acute [facility] Work Phone: Evaluation note* Diagnosis Lumbar disc disease- Primary Other and unspecified disc disorder of lumbar region documented in this encounter [facility]* Diagnosis Encounter for screening mammogram for breast cancer- Primary Recurrent major depressive disorder, in full remission (CMS/HCC) Herniation of intervertebral disc between L4 and L5 Lumbar radiculopathy Thoracic or lumbosacral neuritis or radiculitis, unspecified Chronic hepatitis C without hepatic coma (CMS/HCC) Chronic, continuous use of opioids Controlled substance agreement signed documented in this encounter [facility] Work Phone: Evaluation note* Diagnosis Chronic low back pain, unspecified back pain laterality, unspecified whether sciatica present- Primary documented in this encounter [facility] Work Phone: Evaluation note* Diagnosis Chronic hepatitis C without hepatic coma (CMS/HCC) documented in this encounter [facility] Work Phone: Evaluation note* Diagnosis Chronic hepatitis C without hepatic coma (CMS/HCC) documented in this encounter [facility] Work Phone: Evaluation note* Diagnosis Continuous opioid dependence (CMS/HCC)- Primary Opioid type dependence, continuous abuse Chronic hepatitis C without hepatic coma (CMS/HCC) documented in this encounter [facility] Work Phone: Evaluation note* Diagnosis Chronic right-sided low back pain with right-sided sciatica- Primary [facility] Diagnosis Onset Date Resolution Status Arthritis of carpometacarpal (CMC) joint of right thum b acute Sprain of right thumb acute [facility] Work Phone: Evaluation note* Diagnosis CMC arthritis- Primary Right wrist pain Pain in joint, forearm documented in this encounter [facility] Work Phone: Evaluation note* Diagnosis Chronic back pain greater than 3 months duration- Primary Neuropathic pain documented in this encounter [facility] Work Phone: Evaluation note* Diagnosis Acute bilateral low back pain, unspecified whether sciatica present- Primary [facility]* Diagnosis Chronic back pain, unspecified back location, unspecified back pain laterality- Primary documented in this encounter [facility] Work Phone: Evaluation note* Diagnosis Pain disorder associated with psychological and physical factors documented in this encounter [facility] Work Phone: Evaluation note* Diagnosis Low back pain without sciatica, unspecified back pain laterality, unspecified chronicity- Primary documented [facility] encounter [facility]* Diagnosis Chronic back pain greater than 3 months duration- Primary Chronic back pain greater than 3 months duration Neuropathic pain Continuous opioid dependence (Multi) Opioid type dependence, continuous abuse Neuropathic pain documented in this encounter [facility] Work Phone: Evaluation note* Diagnosis Chronic back pain greater than 3 months duration- Primary Neuropathic pain documented in this encounter [facility] Work Phone: Evaluation note* Diagnosis Strain of lumbar region, initial encounter- Primary documented in this encounter [facility] DroplrEvaluation [facility]* Diagnosis Infection of superficial incisional surgical site after procedure, initial encounter- Primary documented in this encounter [facility] general Narrative - Reported* Type Description Date [...] & adneoids Surgical History TANIKA, RSO 2010 [facility] Other History general Narrative - Reported* Type [...] tonsils & adneoids Surgical History TANIKA, RSO 2011 Hospitalization History see surg Hx [facility] [employer] Other Hospital Discharge instructions No data available for this section [facility] Additional Instructions Return for new or worsening symptoms [facility] Discharge instructions Additional Instructions Take Bentyl and simethicone as prescribed for mild to moderate pain. Take Percocet as needed for severe pain. Increase your intake of fluids. Follow-up with a business process coordinator listed below for ongoing evaluation possible colonoscopy regarding your lower GI bleeding. Return to emergency department if you develop any fevers chills or intractable nausea vomiting, severe worsening bleeding, shortness of breath fatigue with bleeding. Follow-up with the PCP for reevaluation in 3 to 5 days days.[facility] Work Phone: Hospital Discharge instructions Additional Instructions Take the Bentyl as needed for abdominal cramping pain, use Zofran for nausea, start taking Carafate as well Call the GI doctor to see if he can be seen sooner Return for worsening abdominal pain or bleeding, fevers, continued vomiting, lightheadednessMart[facility] Ferry Hospital Work Phone: Hospital Discharge instructions Additional Instructions Follow-up [facility]ologyMart[facility] Work Phone: Hospital Discharge instructions Additional Instructions [...] your legs high fever or any other concernsMartins Ferry Hospital Work Phone: Hospital Discharge instructions Additional Instructions [...] bowel control high fever or any other concernsMartins Ferry Hospital Work Phone: Hospital Discharge instructions Additional Instructions Take 1 oxycodone every 6 hours for severe pain Continue your other medications Follow-up with the neurosurgeon and physical therapy Return to the ER for more severe pain high fever weakness in your legs loss of bladder bowel control or any other concernsMartins Ferry Hospital Work Phone: Hospital Discharge instructions Additional Instructions Take the oxycodone as prescribed to completed Follow-up with your doctors Return to the ER for worsening pain high fever weakness in your legs loss of bladder bowel control or any other concernsMartins Ferry Hospital Work Phone: Hospital Discharge instructions Additional Instructions Follow-up pain management as discussed Take Relafen if needed for pain Gentle range of motion Return here if any problems persist or worsen including loss of bowel bladder control, fevers, chills, numbness, tingling or other concernsMartins Ferry Hospital Work Phone: hospital Discharge instructions Additional Instructions [...] bowel control high fever or any other concernsMartins Ferry Hospital Work Phone: Hospital Discharge instructions Additional Instructions [...] you pain medicine for the next several days.[facility] Work Phone: Hospital Discharge instructions Additional Instructions Take 1 oxycodone every 6 hours for severe pain May apply ice warm moist heat to sore areas Gentle stretching Follow-up with your family doctorMart[facility] Work Phone: Hospital Discharge instructions Additional Instructions Avoid heavy lifting Take your antibiotic as instructed until gone for your UTI Is important that you call Dr. Meza and Dr. Rivero's office both tomorrow to let them know of your symptoms and discuss treatment plan Return here if any problems persist or worsen*[facility] Work Phone: Hospital Discharge instructions Additional Instructions Take the dexamethasone once a day for 7 days Continue your other medication May use ice warm moist heat Follow-up with pain management and neurosurgery Return to the ER for worsening symptoms fever more severe pain or any other concernsMartins Ferry Hospital Work Phone: Hospital Discharge instructions Additional Instructions On oxycodone every 6 hours as needed for pain Ice warm moist heat Continue your other medications Follow-up with your doctors as scheduled Return to the ER worsening pain high fever weakness in the legs loss of bladder bowel control or any other concernsMartins Ferry Hospital Work Phone: Hospital Discharge instructions Additional Instructions Continue cyclobenzaprine 3 times a day as needed Oxycodone every 6 hours as needed Follow-up with the specialist as scheduled Return to the ER for leg weakness loss of bladder bowel control high fever or any other concernsMartins Ferry Hospital Work Phone: Hospital Discharge instructions Additional Instructions 1. Apply moist heat to affected area 2. Avoid lifting, pushing or pulling more than 10 pounds 3. Keep appointment with neurosurgery/pain management as scheduled in March 28. May apply OTC Lidocaine patches to affected area to help with painMartins Ferry Hospital Work Phone: Hospital Discharge instructions Additional Instructions Avoid lifting, pushing, pulling continue to try to reach neurosurgeonMartins Ferry [facility] Work Phone: Hospital Discharge instructions Additional Instructions Continue your other medication Follow-up with your providers Return to the ER for worsening back pain high fever weakness in your legs loss of bladder bowel control or any other [facility] Work Phone: Hospital Discharge instructions Additional Instructions Follow-up with Ortho as scheduled Take Percocet as needed for pain, do not drive, drink, operate heavy machinery while taking[facility] Work Phone: Hospital Discharge instructions* Attachments The following attachments cannot be sent through Care Everywhere. * Managing acute pain at home (Guatemalan) [facility] Work Phone: Hospital Discharge instructions Additional Instructions Continue your regular medication Follow-up with your family doctor Return to the ER for worsening pain weakness in your legs loss of bladder bowel control high fever or any other concernsMart[facility]erry [facility] Work Phone: Hospital Discharge instructions Additional Instructions Continue Flexeril for muscle spasms at home Continue oxycodone as prescribed at home Follow-up with pain management Rest Apply ice Return here if any problems persist or worsenMart[facility]erry [facility] Work Phone: Hospital Discharge instructions* Attachments The following attachments cannot be sent through Care Everywhere. * Back: Strain (Guatemalan) [facility] note No data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 (Given - Provider: Houston Dumont) Ordered Prescriptions (unrec ognized section and content) [...] BE BASED ON THE PRIMARY CLINICAL RECORDS. [employer] [facility]. provides no warranty or guarantee of the accuracy or completeness of information in this document.
--- NOTE | 2023-11-03 15:27 | PC.NURSE ---
pt has a healing incision to low back from removal of a device for back pain. another healing incision to left side upper buttock, closed with no drainage. pt reports this procedure done in [place]. Pt feels like her lower back was harry while driving today. Trip was a 4 hr trip
--- NOTE | 2023-11-03 15:55 | ED.BACK1 ---
HPI HPI - Back Pain/Injury General Chief Complaint: Back Pain/Injury Stated Complaint: back pain Time Seen by Provider: 11/03/23 15:22 Source: patient Mode of arrival: walk-in Limitations: no limitations History of Present Illness HPI Narrative: 48-year-old female presents for pain in her back. She had surgery recently and then rode in a car. She states that riding in the car aggravated it. There was no specific injury. She is also scheduled to get an implanted stimulator in a few weeks. The pain is moderate to severe. It does not radiate. Related Data Home Medications ?Medication ?Instructions ?Recorded ?Confirmed fluoxetine 60 mg tablet 60 mg PO DAILY 07/16/23 09/13/23 cyclobenzaprine 10 mg tablet mg 09/13/23 ibuprofen 800 mg tablet mg 09/13/23 Previous Rx's ?Medication ?Instructions ?Recorded methocarbamol 750 mg tablet 750 mg PO Q6H PRN pain #30 tabs 07/16/23 methylprednisolone 4 mg tablets in 4 mg PO DAILY #21 ea 09/04/23 a dose pack (Medrol (Ian)) oxycodone 5 mg capsule 5 mg PO Q6H PRN pain #10 caps 09/04/23 oxycodone 5 mg tablet 5 mg PO Q8H PRN pain 3 days #10 09/13/23 tabs oxycodone 5 mg tablet 5 mg PO Q6H PRN pain #6 tabs 09/21/23 oxycodone-acetaminophen 5 mg-325 1 tab PO Q6H PRN pain 3 days #10 11/03/23 mg tablet (Percocet) tabs Allergies Allergy/AdvReac Type Severity Reaction Status Date / Time nabumetone Allergy Mild Hives Verified 11/03/23 15:22 hydrocodone Allergy Hives Verified 11/03/23 15:22 ketorolac [From Toradol] Allergy Hives Verified 11/03/23 15:22 Penicillins Allergy Hives Verified 11/03/23 15:22 Opioid HPI Opioid Management Most Recent Opioid Data: Last Pain Scale 9 09/04/23 16:13 Review of Systems ROS Narrative A ten point review of systems is negative except as noted above. PFSH PFSH Surgical History (Updated 09/04/23 @ 15:39 by Michelle Marie) History of spinal surgery ?Z98.890 - Other specified postprocedural states (ICD-10) Social History Smoking status: Current every day smoker Exam Narrative Exam Narrative: Nurses note and vital signs reviewed and patient is not hypoxic. General: The patient appears well and in no apparent distress. Patient is resting comfortably on cart. Skin: Warm, dry, no pallor noted. There is no rash noted. Head: Normocephalic, atraumatic Eye: Normal conjunctiva, no drainage Ears, Nose, Mouth, and Throat: oral mucosa is moist. Nares patent. Cardiovascular: Regular Rate and Rhythm Respiratory: Patient is in no distress, no accessory muscle use, lungs are clear to auscultation, no wheezing, rales or rhonchi Back: Surgical wound is healing well. No surrounding erythema or dehiscence or drainage. GI: Soft and nontender Musculoskeletal: The patient has no evidence of calf tenderness, no pitting edema, symmetrical pulses noted bilaterally Neurological: Awake and alert Psychiatric: Cooperative Constitutional Vital Signs, click to edit/add: Last Vital Signs Temp 98 F 11/03/23 15:23 Pulse 84 11/03/23 15:23 Resp 20 11/03/23 15:23 BP 158/90 H 11/03/23 15:23 Pulse Ox 98 11/03/23 15:23 Course Vital Signs Vital signs: Vital Signs Temperature 98 F 11/03/23 15:23 Pulse Rate 84 11/03/23 15:23 Respiratory Rate 20 11/03/23 15:23 Blood Pressure 158/90 H 11/03/23 15:23 Pulse Oximetry 98 11/03/23 15:23 Temperature 98 F 11/03/23 15:23 Pulse Rate 84 11/03/23 15:23 Respiratory Rate 20 11/03/23 15:23 Blood Pressure 158/90 H 11/03/23 15:23 Pulse Oximetry 98 11/03/23 15:23 MDM - Back Pain/Injury MDM Narrative Medical decision making narrative: She was given a prescription for 10 Percocet. Treatment diagnosis and follow-up were discussed with the patient. She has an appointment with her doctor in 5 days. I have no clinical suspicion of cellulitis or dehiscence. Differential Diagnosis Differential diagnosis: Likely other (Postoperative pain, cellulitis, dehiscence.) Discharge Plan Discharge Stand Alone Forms: Portal Instructions Chief Complaint: Back Pain/Injury Clinical Impression: Post-operative pain Patient Disposition: Home, Self-Care Time of Disposition Decision: 15:50 Prescriptions / Home Meds: New oxycodone-acetaminophen [Percocet] 5-325 mg tablet 1 tab PO Q6H PRN (Reason: pain) 3 Days Qty: 10 0RF No Action cyclobenzaprine 10 mg tablet ibuprofen 800 mg tablet oxycodone 5 mg tablet 5 mg PO Q8H PRN (Reason: pain) 3 Days Qty: 10 0RF oxycodone 5 mg tablet 5 mg PO Q6H PRN (Reason: pain) Qty: 6 0RF fluoxetine 60 mg tablet 60 mg PO DAILY methocarbamol 750 mg tablet 750 mg PO Q6H PRN (Reason: pain) Qty: 30 0RF oxycodone 5 mg capsule 5 mg PO Q6H PRN (Reason: pain) Qty: 10 0RF methylprednisolone [Medrol (Ian)] 4 mg tablets,dose pack 4 mg PO DAILY Qty: 21 0RF Print Language: Persian Instructions: Pain Management (ED) Referrals: Physician,Non-Staff, MD [Primary Care Provider] - 1 week
[2023-11-03] MEDS: MORPHINE SULFATE 4 MG/ML VIAL 8 MG IM (16:03)
== END 2023-11-03 16:11 | disposition home or self-care (01) ==
PROVIDERS: Emergency Provider Emergency Medicine
DX: G89.18 Other acute postprocedural pain (principal); M54.9 Dorsalgia, unspecified; F17.210 Nicotine dependence, cigarettes, uncomplicated
CPT/HCPCS: 96372; 99284; J2270

== ENCOUNTER 2023-12-21 16:50 | Emergency (ER) | payer BC, OTHER, SELFPAY ==
[2023-12-21 16:54] VITALS: BP 132/99; PULSE 87; TEMP 36.8; O2SAT 97; BMI 44.3
--- OUTSIDE RECORDS SUMMARY | 2023-12-21 17:04 | XMS_ITS | CCD ---
Author Organization [facility] Care Team Providers Care Manufacturing Electrician Name Role Phone ROSHAN ESCOBEDO Seng Primary Care Physician Jd Malone Unavailable Avery Goodman Unavailable [facility] Primary Care Provider DO Vlad Bhandari Emergency Provider MORGAN Romero Attending Provider [phone] DO José Miguel Mcnamara Emergency Provider [phone] GINGER Bennett Emergency Provider ELIZABETH Veliz Attending Provider DO Berto Villasenor Emergency Provider [phone] [facility] Services Primary Care Provider DR ZELALEM TRIVEDI Primary Care Unavailable JUAN TRUONG Admitting Unavailable JUAN TRUONG Attending Unavailable DR PROMISE MCKEON Consulting Unavailable JUAN TRUONG Consulting Unavailable ALMAS GRULLON Admitting Unavailable ALMAS GRULLON Attending Unavailable DR ZELALEM TRIVEDI Primary Care Unavailable JOON MOSLEY Consulting Unavailable LEILANI SOLOMON Consulting Unavailable [facility], Services Primary Care Provider GINGER Lamar Emergency Provider [facility] Primary Care Provider DO Berto Villasenor Emergency Provider ELIZABETH Veliz Attending Provider GINGER Lamar Emergency Provider DO Dalton Ceja Emergency Provider [facility] Primary Care Provider [phone] DO Cameron Rene Emergency Provider Bubba guerrero [facility] Primary Care Provider [phone] DO Berto Villasenor Emergency Provider MD Jorge Dan Emergency Provider Keke Skaggs Unavailable [phone] [facility] Primary Care Provider MD Jorge Dan Emergency Provider MD Keke Skaggs Attending Provider Nathalia [facility] Mary Beth E Emergency Provider [phone] [facility] Primary Care Provider GINGER Bennett Emergency Provider Rose Marie Shepherd Unavailable ELIZABETH Veliz Attending Provider ELIZABETH Ferrell Emergency Provider MD Rena Belcher B Emergency Provider Glen Garza Unavailable NONE, XXXX Primary Care Physician Unavailab MD Jorge Samuel Emergency Provider [facility] Primary Care Provider Nathalia [facility] Mary Beth E Emergency Provider MD Joe Meza Attending Provider [phone] ELZBEITA Shepherd Attending Provider MD Glen Garza S Attending Provider DO Vlad Bhandari Emergency Provider ELIZABETH Carmichael Emergency Provider GINGER Dowd Emergency Provider MD Avery Berger Jr Emergency Provider [facility] Primary Care Provider GINGER Bennett Emergency Provider MD RASHAD MCKEON Attending Unavaila david [facility] Primary Care Provider Nathalia [facility] Mary Beth E Emergency Provider [phone] [facility] Services Primary Care Provider [phone] ELIZABETH Ferrell Emergency Provider [facility] Primary Care Provider Sebastienceline, [facility] Mary Beth E Emergency Provider NO FAMILY, PHYSICIAN Primary Care Provider Unava alvaro Bermeo MD, [facility] Primary Care Provider [phone] [facility] Primary Care Provider [phone] ELIZABETH Ferrell Emergency Provider ELZBIETA Shepherd Attending Provider [facility] Services Primary Care Provider Nathalia, [facility] Mary Beth E Emergency Provider [phone] MD Glen Garza Attending Provider [phone] [facility] Services Primary Care Provider GINGER Bennett Emergency Provider [phone] DO Vlad Bhandari Emergency Provider [phone] [facility] Services Primary Care Provider ELIZABETH Ferrell Emergency Provider GINGER Bennett Emergency Provider ELIZABETH Veliz Primary Care Provider [phone] [facility] Services Primary Care Provider [phone] Joe Meza Unavailable [facility] Services Primary Care Provider [phone] Nathalia [facility] Mary Beth E Emergency Provider NON STAFF Primary Care Provider ELIZABETH Valentin Emergency Provider Antonio Husain PA-C Primary Care Provider [phone] [facility] Primary Care Provider Nathalia, [facility] Mary Beth E Emergency Provider [phone] ELIZABETH Ferrell Emergency Provider [facility] Primary Care Provider ELZBIETA Shepherd Attending Provider DO Vlad Bhandari Emergency Provider Nathalia, [facility] Mary Beth E Emergency Provider ELIZABETH Ferrell Emergency Provider GINGER Bennett Emergency Provider MD Glen Garza Attending Provider NO FAMILY, PHYSICIAN Primary Care Provider Unava ilable ELIZABETH Veliz Primary Care Provider NON STAFF Primary Care Provider ELIZABETH Valentin Emergency Provider [facility] Primary Care Provider [phone] ELZBIETA Shepherd Attending Provider DO Vlad Bhandari Emergency Provider [facility] Primary Care Provider ELIZABETH Ferrell Emergency Provider Nathalia [facility] Mary Beth E Emergency Provider ELZBIETA Shepherd Attending Provider DO Vlad Bhandari Emergency Provider NO FAMILY, PHYSICIAN Primary Care Provider Unava ilable Nathalia, [facility] Mary Beth E Emergency Provider MD Glen Garza Attending Provider ELIZABETH Ferrell Emergency Provider ANTONIO HUSAIN Primary Care Physician ELIZABETH Veliz Primary Care Provider ELIZABETH Ferrell Emergency Provider [phone] [place], [facility] Mary Beth E Emergency Provider NO FAMILY, PHYSICIAN Primary Care Provider Unava ilable NON STAFF Primary Care Provider Unavailabl e ELIZABETH Ferrell Emergency Provider [phone] [place], [facility] Mary Beth E Emergency Provider [facility] Primary Care Provider NO FAMILY, PHYSICIAN Primary Care Provider Unava ilable Joset OTHER SALES SUPPORT WORKER Kati A Emergency Provider MariaelenaLUCASN Joshua Emergency Provider Cheyanne Rosas Primary Care Physician NO FAMILY, PHYSICIAN Primary Care Provider Unava ilable [place], [facility] Mary Beth E Emergency Provider ELIZABETH Huerta Kati A Emergency Provider ELIZABETH Giraldo [facility] Primary Care Provider MariaelenaLUCASN Joshua Emergency Provider [phone] [facility] Primary Care Provider [phone] ELIZABETH Huerta Kati A Emergency Provider ELIZABETH Giraldo Emergency Provider ELIZABETH Carmichael Emergency Provider DO Vlad Bhandari Emergency Provider [facility] Primary Care Provider Mariaelena OTHER SALES SUPPORT WORKER Joshua Emergency Provider Sebastienore, [facility] Beth E Emergency Provider ANTONIO HUSAIN Attending Unavailable ANTONIO HUSAIN Primary Care Unavailable JORI CAM Attending Unavailable ANTONIO HUSAIN Primary Care Unavailable BELKIS HERNANDEZ Attending Unavailable ANTONIO HUSAIN Primary Care Unavailable BELKIS HERNANDEZ Referring Unavailable ANTONIO HUSAIN Primary Care Unavailable DECLAN DEL ANGEL Attending Unavailable SLIME SHERWOOD Primary Care Unavailable Generic Provider , No Assigned Pcp Primary Car e Provider Unavailable [facility] Services Primary Care Provider ELIZABETH Carmichael Emergency Provider [phone] Unavailable Primary Care Provider Unavailabl e [facility] Primary Care Provider [phone] MD Abby Jensen Emergency Provider [phone] MD Peter Veliz Emergency Provider WICHO TUBBS Attending Unavailable BENJA MISHRA Attending Unavailable Unavailable, Physician Primary Care Unavailab loretta Villareal PA-C, Abby Romero Attending Unavaila ble Garry MILES, Dory Garcia Attending Unavaila ble Unavailable, Physician Primary Care Unavailab loretta Linder 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, Daysi Muñoz Attending Unavailable DO Dalton Ceja Emergency Provider [phone] DO José Miguel Mcnmaara Emergency Provider PCP, No Primary Care Unavailable Flex Veliz Attending Unavailable PCP, No Primary Care Provider UnavailFlex Niño MD Emergency Provider Unavailable Ralph INSTRUCTOR PROGRAMMABLE CONTROLLERS, Cheyanne Primary Care Unavailable Susu Lamar PA-C Attending Unavailable Susu Lamar PA-C Admitting Unavailable Loretta Daryl K Admitting Unavailable Ralph INSTRUCTOR PROGRAMMABLE CONTROLLERS, Cheyanne Primary Care Unavailable Le Daryl K Attending Unavailable Ralph INSTRUCTOR PROGRAMMABLE CONTROLLERS, Cheyanne Primary Care Unavailable Kristin Bryant Attending Unavailable Kristin Bryant Admitting Unavailable Ralph INSTRUCTOR PROGRAMMABLE CONTROLLERS, Cheyanne Primary Care Unavailable Peter Chavez Attending Unavailab Peter Michel Admitting Unavailab DO Vlad Whitlock Emergency Provider [phone] SAL JUAREZ Attending Unavailable BEN URBINA Attending Unavailable ALLYSON NICOLE Attending Unavailable KEKE PAYNE Attending Unavailable Hazander, Astrit H Attending Unavailable DO Chance Pedro Pablo SAdrien Attending Unavailable Hazander, Astrit H Attending Unavailable Nikhil Tubbs Attending Unavailable DO Elisa Sánchez Attending Unavailable DO Chance Pedro Pablo SAdrien Attending Unavailable Jorge Mcintosh Attending Unavailable Hajdari, Astrit H Attending Unavailable Hajdari, Astrit H Attending Unavailable Hajdari, Astrit H Attending Unavailable Nikhil Tubbs Attending Unavailable Hajdari, Astrit H Attending Unavailable Chance, DO Pedro Pablo S. Attending Unavailable Hajdari, Astrit H Attending Unavailable FARASherron Attending Unavailable FARASherron Attending Unavailable Chance, DO Pedro Pablo S. Attending Unavailable Chance, DO Pedro Pablo S. Attending Unavailable Dokken, DO Kaylinn A Attending Unavailable Nikhil Tubbs Attending Unavailable Arnaldo, Jorge Attending Unavailable Nikhil Tubbs Attending Unavailable Dax Lira Attending Unavailable Joseph, Ashia Nguyen Attending Unavailable Ashia Ruiz Attending Unavailable Nikhil Tubbs Attending Unavailable Arnaldo, Jorge Attending Unavailable Dokken, DO Kaylinn A Attending Unavailable Chance, DO Pedro Pablo S. Attending Unavailable Hajdari, Astrit H Attending Unavailable Nikhil Tubbs Attending Unavailable Hajdari, Astrit H Attending Unavailable Hajdari, Astrit H Attending Unavailable Nikhil Tubbs Attending Unavailable Nikhil Tubbs Attending Unavailable Arnaldo, John Attending Unavailable Hajdari, Astrit H Attending Unavailable Dokken, DO Kaylinn A Attending Unavailable Nikhil Tubbs Attending Unavailable Hajdari, Astrit H Attending Unavailable Nikhil Tubbs MAdrien Attending Unavailable Arnaldo, Jorge Attending Unavailable Nikhil Tubbs MAdrien Attending Unavailable Arnaldo, John Attending Unavailable Nikhil Tubbs Attending Unavailable Nikhil Tubbs Attending Unavailable Nikhil Tubbs Attending Unavailable Arnaldo, John Attending Unavailable Arnaldo, Jorge Attending Unavailable Dokken, DO Kaylinn A Attending Unavailable Nikhil Tubbs Attending Unavailable Hajdari, Astrit H Attending Unavailable Chance, DO Pedro Pablo S. Attending Unavailable Hajdari, Astrit H Attending Unavailable Arnaldo, Jorge Attending Unavailable Chance, DO Pedro Pablo S. Attending Unavailable Hajdari, Astrit H Attending Unavailable Hajdari, Astrit H Attending Unavailable Nikhil Tubbs Attending Unavailable Arnaldo, Jorge Attending Unavailable Arnaldo, Jorge Attending Unavailable Dokken, DO Kaylinn A Attending Unavailable Chandana Varela Attending Unavailable Dokken, DO Kaylinn A Attending Unavailable Cheyanne Rosas Attending Unavailable Hajdari, Astrit H Attending Unavailable Chance, DO Pedro Pablo S. Attending Unavailable Balbina Bryant Attending Unavailable Cheyanne Rosas Referring Unavailable Domenic Sher Attending Unavailable DO Domenic Sher Admitting Unavailabl e NONE, XXXX Referring Unavailable Dory Shepherd Attending Unavailable GINGER Shepherd Admitting Unavailabl e Nikhil Tubbs Attending Unavailable Arnaldo, Jorge Attending Unavailable Arnaldo, Jorge Attending Unavailable Balbina Bryant Attending Unavailable Arnaldo, Jorge Attending Unavailable [facility] Services Primary Care Provider ELIZABETH Carmichael Emergency Provider [phone] ANTONIO HUSAIN Primary Care Unavailable GENERIC PROVIDER, NO ASSIGNED PCP Primary Care Unavailable GENERIC PROVIDER, NO ASSIGNED PCP Primary Care Unavailable GENERIC PROVIDER, NO ASSIGNED PCP Primary Care Unavailable CHIRAG REYNOSO Referring Unavailab le GENERIC PROVIDER, NO ASSIGNED PCP Primary Care Unavailable GENERIC PROVIDER, NO ASSIGNED PCP Primary Care Unavailable JAROCHO TRONCOSO Attending Unavailable FELICE VELIZ Primary Care Unavailable JAROCHO TRONCOSO Attending Unavailable ANTONIO HUSAIN Referring Unavailable GENERIC PROVIDER, NO ASSIGNED PCP Primary Care Unavailable GENERIC PROVIDER, NO ASSIGNED PCP Primary Care Unavailable ELENA, ELKE A Attending Unavailable GENERIC PROVIDER, NO ASSIGNED PCP Primary Care Unavailable SWEET, ELKE A Attending Unavailable GENERIC PROVIDER, NO ASSIGNED PCP Primary Care Unavailable SWEET, ELKE A Admitting Unavailable SWEET, ELKE A Attending Unavailable GENERIC PROVIDER, NO ASSIGNED PCP Primary Care Unavailable GENERIC PROVIDER, NO ASSIGNED PCP Primary Care Unavailable PAULINE FRANCIS Attending Unavailable GENERIC PROVIDER, NO ASSIGNED PCP Primary Care Unavailable SWEET, ELKE A Attending Unavailable GENERIC PROVIDER, NO ASSIGNED PCP Primary Care Unavailable SWEET, ELKE A Attending Unavailable GENERIC PROVIDER, NO ASSIGNED PCP Primary Care Unavailable SWEET, ELKE A Attending Unavailable JAROCHO TRONCOSO Referring Unavailable GENERIC PROVIDER, NO ASSIGNED PCP Primary Care Unavailable ELENA, ELKE A Attending Unavailable FELICE VELIZ Primary Care Unavailable SWEET, ELKE A Attending Unavailable GENERIC PROVIDER, NO ASSIGNED PCP Primary Care Unavailable GENERIC PROVIDER, NO ASSIGNED PCP Primary Care Unavailable PABLO GERONIMO Attending Unavailable Laurita Giraldo Attending Unavailable Laurita Giraldo Admitting Unavailable [facility] Primary Care Unavaila José Miguel Isaacs Attending Unavailable [facility] Services Primary Care Unavaila ble Keister, José Miguel A Admitting Unavailable NO FAMILY, PHYSICIAN Primary Care Unavailable Mariaelena, Joshua Admitting Unavailable Mariaelena, Joshua Attending Unavailable Kiepert, Kati A Admitting Unavailable Kiepert, Kati A Attending Unavailable NON STAFF Primary Care Unavailable Peter Veliz Attending Unavailable Peter Veliz Admitting Unavailable [facility] Primary Care Unavaila ble Mariaelena, Joshua Attending Unavailable Mariaelena, Joshua Admitting Unavailable [facility] Primary Care Unavaila ble Saffle, Deb N Attending Unavailable Saffle, Deb N Admitting Unavailable [facility] Primary Care [...] Unavailable NO FAMILY, PHYSICIAN Primary Care Unavailable Saffle, Deb N Admitting Unavailable Saffle, Deb N Attending Unavailable [facility] Primary Care Unavaila ble [place], Mary Beth E Attending Unavailable [place], Mary Beth E Admitting Unavailable [facility] Primary Care Unavaila ble Saffle, Deb N Attending Unavailable Saffle, Deb N Admitting Unavailable [facility] Primary Care Unavaila ble NO FAMILY, PHYSICIAN Primary Care Unavailable Kiepert, Kati A Admitting Unavailable Kiepert, Kati A Attending Unavailable NO FAMILY, PHYSICIAN Primary Care Unavailable [place], Mary Beth E Attending Unavailable [place], Mary Beth E Admitting Unavailable Veliz, Felice Mayra Primary Care Unavailable Mariaelena, Joshua Admitting Unavailable Mariaelena, Joshua Attending Unavailable [place], Mary Beth E Attending Unavailable [place], Mary Beth E Admitting Unavailable Veliz, Felice Mayra Primary Care Unavailable NO FAMILY, PHYSICIAN Primary Care Unavailable Mariaelena, Joshua Admitting Unavailable Mariaelena, Joshua Attending Unavailable NO FAMILY, PHYSICIAN Primary Care Unavailable [place], Mary Beth E Admitting Unavailable [place], Mary Beth E Attending Unavailable Vlad Bhandari Attending Unavailable Vlad Bhandari Admitting Unavailable [facility] Primary Care Unavaila ble Vlad Bhandari Admitting Unavailable Vlad Bhandari Attending Unavailable NON STAFF Primary Care Unavailable Kiepert, Kati A Admitting Unavailable Kiepert, Kati A Attending Unavailable [facility] Primary Care Unavaila ble Abby Jensen Attending Unavailable Abby Jensen R Admitting Unavailable [facility] Primary Care Unavaila ble NO FAMILY, PHYSICIAN Primary Care Unavailable Mariaelena, Joshua Admitting Unavailable Mariaelena, Ojshua Attending Unavailable Tupa, Vlad M Admitting Unavailable Tupa, Vlad M Attending Unavailable [facility] Primary Care Unavaila ble NO FAMILY, PHYSICIAN Primary Care Unavailable Mariaelena, Joshua Admitting Unavailable Mariaelena, Joshua Attending Unavailable Veliz, Felice Mayra Primary Care Unavailable Shepherd, Rose Marie Admitting Unavailable Shepherd, Rose Marie Attending Unavailable Veliz, Felice Mayra Primary Care Unavailable [place], Mary Beth E Attending Unavailable [place], Mary Beth E Admitting Unavailable Ceja, Dalton Admitting Unavailable Ceja, Dalton Attending Unavailable [facility] Primary Care Unavaila ble [place], Mary Beth E Attending Unavailable [place], Mary Beth E Admitting Unavailable NO FAMILY, PHYSICIAN Primary Care Unavailable CHIDI JOSEPH Referring Unavailable NEWBILL, ANTONIO M Primary Care [...] PROVIDER, NO ASSIGNED PCP Primary Care Unavailable CHIRAG REYNOSO Attending Unavailab le GENERIC PROVIDER, NO ASSIGNED PCP Primary Care Unavailable SWEET, ELKE A Admitting Unavailable SWEET, ELKE A Attending Unavailable GENERIC PROVIDER, NO ASSIGNED PCP Primary Care Unavailable GENERIC PROVIDER, NO ASSIGNED PCP Primary Care Unavailable GENERIC PROVIDER, NO ASSIGNED PCP Primary Care Unavailable ABBY JENSEN Referring Unavailable MAINE WELCH Attending Unavailable SWEET, ELKE A Admitting Unavailable SWEET, ELKE A Attending Unavailable CHIRAG REYNOSO Referring Unavailab le GENERIC PROVIDER, NO ASSIGNED PCP Primary Care Unavailable GENERIC PROVIDER, NO ASSIGNED PCP Primary Care Unavailable SWEET, ELKE A Admitting Unavailable SWEET, ELKE A Attending Unavailable JEFFREY STEINBERG Consulting Unavailable WICHO TUBBS Referring Unavailable GENERIC PROVIDER, NO ASSIGNED PCP Primary Care Unavailable SWEET, ELKE A Admitting Unavailable ELKE ADAMS Attending Unavailable GILLIAN BELL Unavailable GENERIC PROVIDER, NO ASSIGNED PCP Primary Care Unavailable EMA ANDRADE Attending Unavailable GENERIC PROVIDER, NO ASSIGNED PCP Primary Care Unavailable ELKE ADAMS Admitting Unavailable ELKE ADAMS Attending Unavailable CRISTOBAL GARIBAY Referring Unavailable GENERIC PROVIDER, NO ASSIGNED PCP Primary Care Unavailable CRISTOBAL GARIBAY Attending Unavailable VELIZ, FELICE R Primary Care Unavailable VELIZ, FELICE R Primary Care Unavailable ELKE BAI Attending Unavailable DOUG ALFONSO Referring Unavailable VELIZ, FELICE R Primary Care Unavailable VELIZ, FELICE R Primary Care Unavailable DECLAN KRISHNAMURTHY Attending Unavailable ROBERTO APARICIO Referring Unavailable GENERIC PROVIDER, NO ASSIGNED PCP Primary Care Unavailable JAROCHO TRONCOSO Referring Unavailable VELIZ, FELICE R Primary Care Unavailable GENERIC PROVIDER, NO ASSIGNED PCP Primary Care Unavailable GENERIC PROVIDER, NO ASSIGNED PCP Primary Care Unavailable PABLO SNOW Attending Unavailable NEWBILPepe, ANTONIO M Primary Care Unavailable CHIDI JOSEPH Attending Unavailable VELA, EFE Referring Unavailable NEWBILANTONIO Cantu M Primary Care Unavailable NEWBILL ANTONIO M Primary Care Unavailable Jorge Mcintosh Attending Unavailable Hajdari, Astrit H Attending Unavailable Hajdari, Astrit H Attending Unavailable Allergies Allergy Classification Reported Allergen(s) Allergy Type Date of Onset Reaction(s) Facility Acetaminophen / HYDROcodone (4 sources) Acetaminophen / HYDROcodone; Translations: [acetaminophen-hy drocodone] Drug Allergy 3 [facility] NSAIDs (4 sources) nabumetone; Translations: [nabumetone] Drug Allergy 3 Nausea/vomitin g, Rash [facility] Opioid Agonists (1 source) HYDROcodone Drug Allergy 3 Hives, [facility] Work Phone: Penicillins (antibiotic) (4 sources) Penicillin; Translations: [penicillin] Drug Allergy 3 Hives, [facility] (20 sources) Acetaminophen / HYDROcodone; Translations: [Acetaminophen / Hydrocodone] Drug Allergy Unknown, [facility] (20 sources) Diclofenac Drug Allergy 4 Unknown, [facility] (20 sources) HYDROcodone; Translations: [Hydrocodone] Drug Allergy 4 Hives, Unknown, Rash [facility] (20 sources) Penicillins; Translations: [PENICILLINS] Propensity to adverse reactions 2 Hives, Unknown [facility] (20 sources) Penicillin; Translations: [penicillin] Drug Allergy 2 Unknown, Hives [facility] (19 sources) Acetaminophen; Translations: [acetaminophen] Drug Allergy 2 Abdominal Pain, Hives, Unknown Reaction [facility] (20 sources) nabumetone; Translations: [nabumetone] Drug Allergy 3 Nausea/vomitin g, Rash [facility] (18 sources) Acetaminophen / HYDROcodone; Translations: [HYDROCODONE-ACET AMINOPHEN] Drug Allergy 3 [facility] (17 sources) Penicillin G; Translations: [PENICILLIN G] Drug Allergy 3 [facility] (4 sources) gabapentin; Translations: [GABAPENTIN] Drug Allergy 4 [facility] 2 Repository (1 source) Diclofenac Drug Allergy 4 [facility] Repository Medications Current Medications Medication Drug Class(es) Dates Sig (Normalized) Sig (Original) acetaminophen 500 mg oral tablet (2 sources) Start: 11-27-2023 take 2 tablets by mouth every eight hours as needed for pain Acetaminophen (Tylenol Extra Strength) 500 mg tablet Active 1000 MG PO Q8H as needed for pain November 27, 2023 12:00am Start: 08-09-2023 End: 08-09-2023 acetaminophen (TYLENOL EXTRA STR) tablet 1,000 mg acetaminophen 325 mg / butalbital 50 mg / caffeine 40 mg oral tablet (5 sources) Barbiturate, Central Nervous System Stimulant, Methylxanthine Start: 05-14-2023 take 1 tablet by mouth every four hours for headache APAP/butalbital/caffeine 325 mg-50 mg-40 mg Tab 1 tab(s), Oral, q4hr for headache, 15 tab(s), Refill(s) 0, [id number], 160, cm, 05/14/23 10:27:00 EST, Height/Length Dosing, 115, kg, 05/14/23 10:27:00 EST, Weight Dosing Start Date: 05/14/23 Status: Ordered acetaminophen 325 mg / oxyCODONE hydrochloride 5 mg oral tablet (20 sources) Opioid Agonist Start: 11-24-2023 End: 11-26-2023 acetaminophen-oxycodone 325 mg-5 mg Tab 1 tab(s), Oral, q6hr for pain for 2 day(s), 8 tab(s), Refill(s) 0, [id number], 160, cm, 11/24/23 13:46:00 EDT, Height/Length Dosing, 115, kg, 11/24/23 13:46:00 EDT, Weight Dosing Start Date: 11/24/23 Stop Date: 11/26/23 Status: Ordered Start: 09-10-2023 End: 09-10-2023 oxyCODONE-acetaminophen (PER COCET) 5-325 MG per tablet 1 tablet Start: [...] August 29, 2017 April 01, 2018 8:03pm [id number] 200 actuat albuterol 0.09 mg/actuat metered dose [...] day(s), # 28 cap(s), Refills(s) 0, Pharmacy: [id number], 160, cm, 09/25/23 11:43:00 EDT, Height/Length Dosing, 115.3, kg, 09/25/23 11:43:00 EDT, Weight Dosing Start Date: 09/25/23 Stop Date: 10/02/23 Status: Ordered Start: 12-10-2022 End: 01-04-2023 take 500 mg by mouth every eight hours Cephalexin Discontinued 500 MG PO Q8H 12 10December 10, 2022 12:00am January 04, 2023 3:19pm [...] not swallow) Start Date: 01/13/18 Status: Ordered clindamycin 150 mg oral capsule (20 sources) Lincosamide Antibacterial Start: 11-10-2023 take 450 mg by mouth three times daily Clindamycin Hcl Active 450 MG PO Three times daily November 10, 2023 12:00am Start: 07-02-2021 End: 01-21-2022 take 450 mg by mouth three times daily Clindamycin Hcl Discontinued 450 MG PO Three times daily July 02, 2021 12:00am January 21, 2022 [...] 01, 2017 1:00am February 11, 2017 1:03am cyclobenzaprine hydrochloride 5 mg oral tablet (20 sources) Muscle Relaxant Start: 12-04-2023 End: 12-07-2023 take 1 tablet by mouth three times daily cyclobenzaprine (FLEXERIL) 5 mg tablet Take 1 Tab by mouth three times a day for 3 days 9 Tab 12/04/2023 12/07/2023 Active Start: 09-21-2023 take 1 tablet by wei three times daily as needed for muscle spasms cyclobenzaprine 10 mg Tab 10 mg = 1 tab(s), Oral, TID, PRN for spasm, # 30 tab(s), Refills(s) 0, Pharmacy: [facility]/pharmacy #[id number], 160, cm, 09/21/23 11:20:00 EDT, Height/Length [...] 12:00am January 04, 2023 3:20pm diclofenac sodium 0.01 mg/mg topical gel (20 sources) Nonsteroidal Anti-inflammatory Drug Start: 11-24-2023 Voltaren Gel 1% G el 1 kennedi, Topical, QID for pain, 100 gram, Refill(s) 0, [facility]/pharmacy #[id number], 160, cm, 11/24/23 13:46:00 EDT, Height/Length Dosing, 115, kg, 11/24/23 13:46:00 EDT, Weight Dosing Start Date: 11/24/23 Status: Ordered Start: 09-04-2022 Diclofenac Sod ium 3 % as directed Externally apply to [...] 2022 2:25pm diflunisal 500 mg oral tablet (16 sources) Nonsteroidal Anti-inflammatory Drug Start: 09-02-2023 take 1 tablet by mouth every twelve hours diflunisal 500 mg Tab 500 mg = 1 tab(s), Oral, q12hr, # 20 tab(s), Refills(s) 0, Pharmacy: [facility]/pharmacy #[id number], 160, cm, 09/02/23 18:11:00 EDT, Height/Length Dosing, 115.5, kg, 09/02/23 18:11:00 EDT, Weight Dosing Start Date: 09/02/23 Status: Ordered docusate sodium 50 mg / sennosides, nursing home 8.6 mg oral tablet (2 sources) Start: 08-21-2023 End: 08-28-2023 take 1 tablet by mouth once daily sennosides-docusat e sodium (Judy-Colace) 8.6-50 mg tablet Indications: Continuous opioid dependence (Multi) Take 1 tablet by mouth once daily for 7 days. 7 tablet 08/21/2023 08/28/2023 Active doxycycline hyclate 100 mg oral tablet (1 source) Tetracycline-class Drug Start: 11-27-2023 take 1 capsule by mouth twice daily Doxycycline Hyclate 100 mg capsule Active 100 MG PO twice a day 11 01November 27, 2023 12:00am 2 ml droperidol 2.5 mg/ml injection (1 [...] Refills(s) 1, Pharmacy: [facility]/pharmacy #[id number], 160, cm, 07/17/23 8:06:00 EDT, Height/Length Dosing, [...] MG PO Daily June 02, 2021 1:00am fluticasone propionate 0.05 mg/actuat metered dose nasal spray (1 source) Corticosteroid Start: 12-13-2023 Flonase 0.05 m g/inh [place] 2 spray(s), Topical, Daily, 16 gram, Refill(s) 0, each nostril, [facility], 160, cm, 12/13/23 13:44:00 EDT, Height/Length Dosing, 115.2, kg, 12/13/23 13:44:00 EDT, Weight Dosing Start Date: 12/13/23 Status: Ordered Mavyret (20 sources) Start: 06-03-2023 take 3 tablets by mouth once daily Mavyret 3 tab(s), Oral, Daily, Refill(s) 0 Start Date: 06/03/23 Status: Ordered Start: 05-15-2023 Glecaprevir-Pi brentasvir (Mavyret) 100-40 mg tablet Active TAB PO May 15, 2023 12:00am Start: 04-27-2023 End: 09-08-2023 take 1 tablet by mouth once daily Glecaprevir-Pibrentasvir (Mavyret) 100-4 0 mg tablet Discontinued 3 TAB PO Daily May 15, 2023 1:00am September 08, 2023 6:36pm ibuprofen 800 mg oral tablet (20 sources) Nonsteroidal Anti-inflammatory [...] 2017 2:32pm ketoconazole 20 mg/ml topical cream (3 sources) Azole Antifungal Start: 10-26-2023 End: 11-23-2023 ketoconazole Top 2% Crm 1 kennedi, Topical, BID for 28 day(s), 60 gm, Refill(s) 0, [facility]/pharmacy #[id number], 160, cm, 10/26/23 2:47:00 EDT, Height/Length [...] a day for 30 day(s) Dec, Active methylPREDNISolone 4 mg oral tablet (20 sources) [...] package directions metoclopramide 10 mg oral tablet (20 sources) Dopamine-2 Receptor Antagonist Start: 08-12-2023 take [...] hours 9 June 01, 2023 1:00am Start: 03-11-2023 take [...] Ondansetron Active 4 MG PO Q8H 6 November 14, 2021 12:00am Start: 11-14-2021 take [...] 8-10, # 9 cap(s), Refills(s) 0, Pharmacy: [facility]/pharmacy #[id number], 160, cm, 05/12/23 10:26:00 EST, Height/Length [...] 10 mg oral tablet (20 sources) Start: 12-13-2023 predniSONE 10 mg Tab = 1 -, Oral, As Directed, Take 3 tabs by mouth daily x3 days, then 2 tabs daily x3 days, then 1 tab daily x3 days., # 18 tab(s), Refills(s) 0, Pharmacy: [facility], 160, cm, 12/13/23 13:44:00 EDT, Height/Length Dosing, 115.2, kg, 12/13/23 13:44:00 EDT, Weight Dosing Start Date: 12/13/23 Status: Ordered Start: 06-27-2023 predniSONE 10 mg Tab = [...] day(s), # 60 cap(s), Refills(s) 1, Pharmacy: [facility]/pharmacy #[id number], 160, cm, 07/15/23 13:55:00 EDT, Height/Length [...] Nausea/Vomiting, # 6 EA, Refills(s) 0, Pharmacy: [facility]/pharmacy #[id number], 160, cm, 04/30/23 17:09:00 EST, Height/Length Dosing, 114, kg, 04/30/23 17:09:00 EST, Weight Dosing Start Date: 04/30/23 Status: Ordered Robaxin-750 (1 source) Robaxin-750 Acti ve sulfamethoxazole 800 mg / trimethoprim 160 mg oral tablet (20 sources) Dihydrofolate Reductase Inhibitor Antibacterial, Sulfonamide Antimicrobial Start: 09-25-2023 End: 10-02-2023 Bactrim D.S. 800 mg-160 mg Tab 1 tab(s), Oral, BID for 7 day(s), 14 tab(s), Refill(s) 0, [facility]/pharmacy #[id number], 160, cm, 09/25/23 11:43:00 EDT, Height/Length Dosing, 115.3, kg, 09/25/23 11:43:00 EDT, Weight Dosing Start Date: 09/25/23 Stop Date: 10/02/23 Status: Ordered Start: 04-01-2018 End: 04-11-2018 take 1 tablet by mouth twice daily Sulfamethoxazole-Trimethoprim (Bactrim D s) 800-160 mg tablet Discontinued 1 TAB PO Twice daily April 01, 2018 1:00am April 11, 2018 8:03pm tiZANidine 2 mg oral tablet (8 sources) Central alpha-2 Adrenergic Agonist Start: 11-27-2023 End: 12-04-2023 take 1 tablet by mouth every eight hours tiZANidine 2 mg Tab 2 mg = 1 tab(s), Oral, q8hr, X 7 day(s), # 21 tab(s), Refills(s) 0, Pharmacy: [facility]/pharmacy #[id number], 160, cm, 11/27/23 17:53:00 EDT, Height/Length Dosing, 115.5, kg, 11/27/23 17:53:00 EDT, Weight Dosing Start Date: 11/27/23 Stop Date: 12/04/23 Status: Ordered Start: 06-27-2023 take 1 tablet by wei th every six hours as needed for pain [...] Ordered traMADol hydrochloride 50 mg oral tablet (16 sources) Opioid Agonist Start: 05-15-2023 take 1 [...] Nausea/Vomiting, # 12 tab(s), Refills(s) 0, [id number] 160, cm, 01/02/23 16:09:00 EDT, Height/Length Dosing, 114.2, kg, 01/02/23 16:09:00 EDT, Weight Dosing Start Date: 01/02/23 Status: Ordered Completed/Discontinued Medications Medication Drug Class(es) Dates Sig (Normalized) Sig (Original) azithromycin 250 mg oral tablet (20 sources) [...] 11, 2022 12:00am November 29, 2022 3:26pm diazePAM 5 mg oral tablet (7 sources) Benzodiazepine Start: 10-30-2023 End: 10-30-2023 diazePAM (VALIUM) tablet 5 mg Start: 12-04-2022 End: 12-04-2022 take 1 tablet by mouth three times daily diazePAM (VALIUM) 5 mg tablet Indications: Lumbar disc disease Take 1 Tab by mouth three times a day 10 Tab 12/04/2022 Active gabapentin 300 mg oral capsule [...] Date: 07/17/23 Stop Date: 11/14/23 Status: Ordered iohexoL (OMNIPAQUE) 350 mg iodine/mL intravenous solution 100 mL (1 source) Start: 12-04-2023 End: 12-04-2023 100 mL, IV Push, TO CT SCAN-ONCE, 1 dose, On Sat12/04/23 at 2250 1 ml ketorolac tromethamine 30 mg/ml injection (20 sources) Nonsteroidal Anti-inflammatory Drug, Cyclooxygenase Inhibitor Start: 06-15-2023 End: 06-15-2023 ketorolac (Toradol) injection 30 mg Start: 04-28-2023 take 1 tablet by wei th every six hours as needed ketorolac (TORADOL) 10 mg tablet Take 1 Tab by mouth every 6 hours as needed for up to 30 doses 30 Tab 04/28/2023 Active Start: 04-27-2023 End: 04-27-2023 ketorolac [...] 03, 2022 1:00am March 29, 2022 2:25pm methocarbamol 500 mg oral tablet (20 sources) Muscle Relaxant Start: 12-04-2023 End: 12-04-2023 1,000 mg, Oral, NOW, 1 dose, On Sat12/04/23 at 2310 Start: 12-04-2023 End: 12-11-2023 take 2 tablets by mouth twice daily as needed methocarbamoL (ROBAXIN) 500 mg tablet Take 2 Tab by mouth two times a day as needed for up to 7 days 28 Tab 12/04/2023 12/11/2023 Active Start: 09-02-2023 End: 09-09-2023 take 1 tablet [...] day(s), # 112 tab(s), Refills(s) 0, Pharmacy: [facility]/pharmacy #[id number], 160, cm, 08/05/23 20:18:00 EDT, Height/Length [...] 02, 2022 12:00am August 26, 2022 3:39pm 1 ml morphine sulfate 4 mg/ml injection (4 sources) Opioid Agonist Start: 12-04-2023 End: 12-04-2023 4 mg, IV Push, NOW, 1 dose, On Sat12/04/23 at 2235 Start: 10-31-2023 End: 10-31-2023 morphine injection 4 [...] (20 sources) Nonsteroidal Anti-inflammatory Drug Start: 07-26-2023 End: 12-07-2023 take 1 tablet by mouth twice daily [...] 26, 2022 3:39pm take 1 capsule by [facility] twice daily at mealtime omeprazole (PRILOSEC) [...] daily Simethicone Discontinued 250 MG PO Daily 7 March 14, 2022 1:00am September 05, 2022 3:33pm 5 ml sodium chloride 9 mg/ml injection (3 sources) Start: 12-04-2023 End: 12-04-2023 IV Push, TO CT SCAN-ONCE, 1 dose, On Sat12/04/23 at 2250 Start: 10-30-2023 sodium chlorid e flush 0.9 % injection 10 mL Start: 10-30-2023 End: 10-30-2023 sodium chloride 0.9 % bolus 1,000 mL sucralfate 1000 mg oral tablet (20 sources) [...] Date Documented Da te Episodic/Chronic Allergic reactions (3 sources) Allergy status to penicillin; Translations: [Eczema] Onset: 3 Episodic Chronic obstructive pulmonary disease and bronchiectasis (20 sources) Bronchitis; Translations: [Bronchitis, not specified as acute or chronic] 07-24-2021 Episodic Complications of surgical procedures or medical care (20 sources) Complication of procedure; Translations: [Unspecified complication [...] unspecified; Translations: [Fever, unspecified] Onset: 4 Episodic Fluid and electrolyte disorders (1 source) Hypokalemia; Translations: [Hypokalemia] Onset: 4 Episodic Gastrointestinal hemorrhage (20 sources) [...] (1 source) Drug therapy finding; Translations: [Other longterm (current) drug therapy] 01-15-2023 Episodic Other aftercare (1 source) Procedure carried out on subject; Translations: [Encounter for other specified aftercare] Onset: 4 Episodic Other aftercare (1 source) Surgical follow-up; Translations: [Encounter for other specified surgical aftercare] Onset: 4 Episodic Other aftercare (3 sources) Wound ; Translations: [Encounter for other specified surgical aftercare] 11-25-2023 Episodic Other aftercare (1 source) Wound finding; Translations: [Encounter for other specified aftercare] 12-12-2023 Episodic Other aftercare (2 sources) Encounter for other specified aftercare; Translations: [Encounter for other specified aftercare] Onset: [...] 4 06-05-2023 Episodic Other connective tissue disease (1 source) Pain in right leg; Translations: [Pain in right leg] Onset: 4 Episodic Other gastrointestinal disorders (20 sources) Diarrhea; Translations: [Diarrhea, unspecified] Onset: 4 Episodic Other gastrointestinal disorders (2 sources) Drug induced constipation; Translations: [Drug induced constipation] Onset: 4 Episodic Other injuries and conditions due to external causes (13 sources) Contusion; Translations: [Other injury of unspecified [...] conditions due to external causes (2 sources) Unspecified injury of head, initial encounter; Translations: [Unspecified injury of head, initial encounter] [...] Onset: 3 Episodic Other nervous system disorders (8 sources) Other acute postprocedural pain; Translations: [Other acute postprocedural pain] Onset: 4 Episodic Other non-traumatic joint disorders (1 source) Allergic arthritis of the hand; 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, right hand] Onset: 4 Chronic Other non-traumatic joint disorders (20 sources) Hip pain; Translations: [Pain in unspecified hip] 01-08-2021 Episodic Other non-traumatic joint disorders (10 sources) Pain in wrist; Translations: [Pain in [...] [Cardiac disease monitoring status] Onset: 3 Episodic Other skin disorders (2 sources) Other skin changes; Translations: [Other skin changes] Onset: 4 Episodic Rehabilitation care; fitting of prostheses; and adjustment of devices (2 sources) Encounter for fitting and adjustment of other specified devices; Translations: [Encounter for fitting and adjustment of other specified devices] Onset: 4 Chronic Residual codes; unclassified (2 sources) Presence of [...] depression] Episodic Skin and subcutaneous tissue infections (4 sources) Cellulitis; Translations: [Cellulitis, unspecified] Onset: 4 [...] back pain] Onset: 1 Resolved: 1 Episodic Sprains and strains (20 sources) Sprain of ankle; Translations: [Sprain of unspecified ligament of right ankle, initial encounter] Onset: 4 11-27-2020 Episodic Substance-related disorders (20 sources) Smoker; Translations: [Nicotine dependence, unspecified, uncomplicated] Onset: 3 07-18-2016 Chronic Comment on above: Added secondary to d ocumentation in Social History. Substance-related disorders (15 sources) Continuous opioid dependence; Translations: [Opioid use, unspecified, uncomplicated] Onset: 3 01-15-2023 Episodic Superficial injury; contusion (6 sources) Superficial injury of trunk; Translations: [Contusion of lower back and pelvis, initial encounter] Onset: 3 Episodic Unclassified (3 sources) Fitting and adjustment of other gastrointestinal appliance and device; Translations: [Fitting and adjustment of other gastrointestinal appliance and device] Unclassified (1 source) CONTACT W/AND (SUSP) EXPOS COVID-19; Translations: [CONTACT W/AND (SUSP) EXPOS COVID-19] Onset: 2 Unclassified (8 sources) Low back pain, unspecified; Translations: [Low back pain, unspecified] Onset: 3 Unclassified (20 sources) Drug therapy finding 07-17-2023 Unclassified (20 sources) Patient encounter status 07-17-2023 Unclassified (1 source) Presented to ED with a complaint of Post Op, Back Pain 11-27-2023 Unclassified (1 source) Pain in right wrist; Translations: [Pain in right wrist] Onset: 4 Unclassified (1 source) Pain in left shoulder; Translations: [Pain in left shoulder] Onset: 4 Unclassified (1 source) Other low back pain; Translations: [Other low back pain] Onset: 3 Unclassified (1 source) Low back pain, unspecified; Translations: [Low back pain, unspecified] Onset: 3 Unclassified (2 sources) Chronic back [...] 05-11-2023 Episodic Other aftercare (3 sources) Other terminal operations manager (current) drug therapy; Translations: [OTH FORESTRY SUPERVISOR CURRENT DRUG THERAPY] Onset: 10-19-2021 Episodic Other connective tissue disease (6 sources) Neuralgia and neuritis, unspecified; Translations: [Neuralgia and neuritis, unspecified] Onset: 08-21-2023 Episodic Other gastrointestinal disorders (1 source) Diarrhea, unspecified; Translations: [DIARRHEA UNSPECIFIED] Onset: 09-15-2021 Episodic Other non-traumatic joint disorders (1 source) [...] sources) Onset: 01-15-2023 Resolved: 06-05-2023 01-15-2023 Unclassified (5 sources) Low back pain, unspecified; Translations: [Low back pain, unspecified] Onset: 01-22-2023 Unclassified (4 sources) Leakage of wound after surgical procedure; Translations: [Drainage from surgical wound] 11-10-2023 Results Test Name Value Interpretation Reference Range Facility C reactive proteinon 024 CRP [Mass/Vol] 0.80 mg/dL Normal <1.00 [facility] Comment on above: Performed By: #### 5 0023-1 #### JOLENE Cantu ([id number]) [facility] ([facility]) [address] [place] [address] CBC W Auto Differential pane l (Bld)on 12-18-2023 Basophils (Bld) [#/Vol] 0.01 x10*3/uL Normal 0.00-0.10 [facility] Comment on above: Performed By: #### 5 0023-1 #### JOLENE Cantu ([id number]) [facility] ([facility]) [id number] [place] [address] 34257 Basophils/100 WBC (Bld) 0.1 % Normal 0.0-2.0 [facility] Comment on above: Performed By: #### 5 0023-1 #### JOLENE Cantu ([id number]) [facility] ([facility]) [address] [place] [address] 92168 Eosinophils (Bld) [#/Vol] 0.14 x10*3/uL Normal 0.00-0.70 [facility] Comment on above: Performed By: #### 5 0023-1 #### JOLENE Cantu ([id number]) [facility] ([facility]) [address] [place] [address] 39294 Eosinophils/100 WBC (Bld) 1.5 % Normal 0.0-6.0 [facility] Comment on above: Performed By: #### 5 0023-1 #### JOLENE Cantu ([id number]) [facility] ([facility]) [address] [place] [address] 34455 Erythrocyte distribution width (RBC) [Ratio] 12.8 % Normal 11.5-14.5 [facility] Comment on above: Performed By: #### 5 0023-1 #### JOLENE Cantu ([id number]) [facility] ([facility]) [address] [place] [address] 12259 Hematocrit (Bld) [Volume fraction] 42.2 % Normal 36.0-46.0 [facility] Comment on above: Performed By: #### 5 0023-1 #### JOLENE Cantu ([id number]) [facility] ([facility]) [address] [place] [address] 76113 Hemoglobin (Bld) [Mass/Vol] 14.0 g/dL Normal 12.0-16.0 [facility] Comment on above: Performed By: #### 5 0023-1 #### JOLENE Cantu ([id number]) [facility] ([facility]) [address] [place] [address] 37362 Immature granulocytes (Bld) [#/Vol] 0.05 x10*3/uL Normal 0.00-0.70 [facility] Comment on above: Performed By: #### 5 0023-1 #### JOLENE RONQUILLO L ([id number]) [facility] ([facility]) [address] [place] [address] 50483 Immature granulocytes/100 WBC (Bld) 0.5 % Normal 0.0-0.9 [facility] Comment on above: Result Comment: Aspen ture Granulocyte Count (IG) includes promyelocytes, myelocytes and metamyelocytes but does not include bands. Percent differential counts (%) should be interpreted in the context of the absolute cell counts (cells/UL). Performed By: #### 5 0023-1 #### JOLENE Cantu ([id number]) [facility] ([facility]) [address] [place] [address] 01370 Lymphocytes (Bld) [#/Vol] 1.77 x10*3/uL Normal 1.20-4.80 [facility] Comment on above: Performed By: #### 5 0023-1 #### JOLENE Cantu ([id number]) [facility] ([facility]) [address] [place] [address] 35405 Lymphocytes/100 WBC (Bld) 18.6 % Normal 13.0-44.0 [facility] Comment on above: Performed By: #### 5 0023-1 #### JOLENE Cantu ([id number]) [facility] ([facility]) [address] [place] [address] 00927 MCH (RBC) [Entitic mass] 30.2 pg Normal 26.0-34.0 [facility] Comment on above: Performed By: #### 5 0023-1 #### JOLENE Cantu ([id number]) [facility] ([facility]) [address] [place] [address] 26850 MCHC (RBC) [Mass/Vol] 33.2 g/dL Normal 32.0-36.0 [facility] Comment on above: Performed By: #### 5 0023-1 #### JOLENE Cantu ([id number]) [facility] ([facility]) [address] [place] [address] MCV (RBC) [Entitic vol] 91 fL Normal 80-100 [facility] Comment on above: Performed By: #### 5 0023-1 #### JOLENE Cantu ([id number]) [facility] ([facility]) [id number] [place] [address] 89643 Monocytes (Bld) [#/Vol] 0.61 x10*3/uL Normal 0.10-1.00 [facility] Comment on above: Performed By: #### 5 0023-1 #### JOLENE Cantu ([id number]) [facility] ([facility]) [id number] [place] [address] 35064 Monocytes/100 WBC (Bld) 6.4 % Normal 2.0-10.0 [facility] Comment on above: Performed By: #### 5 0023-1 #### JOLENE Cantu ([id number]) [facility] ([facility]) [address] [place] [address] 51820 Neutrophils (Bld) [#/Vol] 6.96 x10*3/uL Normal 1.20-7.70 [facility] Comment on above: Result Comment: Perc ent differential counts (%) should be interpreted in the context of the absolute cell counts (cells/uL). Performed By: #### 5 0023-1 #### JOLENE Cantu ([id number]) [facility] ([facility]) [id number] [place] [address] 14785 Neutrophils/100 WBC (Bld) 72.9 % Normal 40.0-80.0 [facility] Comment on above: Performed By: #### 5 0023-1 #### JOLENE Cantu ([id number]) [facility] ([facility]) [address] [place] [address] [place] [address] Nucleated RBC/100 WBC (Bld) [Ratio] 0.0 /100 WBCs Normal 0.0-0.0 [facility] Comment on above: Performed By: #### 5 0023-1 #### JOLENE Cantu ([id number]) [facility] ([facility]) [id number] [place] [address] 34549 Platelets (Bld) [#/Vol] 365 x10*3/uL Normal 150-450 [facility] Comment on above: Performed By: #### 5 0023-1 #### JOLENE Cantu ([id number]) [facility] ([facility]) [address] [place] [address] 33204 RBC (Bld) [#/Vol] 4.63 x10*6/uL Normal 4.00-5.20 [facility] Comment on above: Performed By: #### 5 0023-1 #### JOLENE Cantu ([id number]) [facility] ([facility]) [address] [place] [address] 70727 WBC (Bld) [#/Vol] 9.5 x10*3/uL Normal 4.4-11.3 [facility] Comment on above: Performed By: #### 5 0023-1 #### JOLENE Cantu ([id number]) [facility] ([facility]) [address] [place] [address] 02490 Comprehensive metabolic 2000 panelon 12-18-2023 Albumin BCP dye [Mass/Vol] 4.3 g/dL Normal 3.4-5.0 [facility] Comment on above: Performed By: #### 5 0023-1 #### JOLENE Cantu ([id number]) [facility] ([facility]) [id number] [place] [address] 70826 ALP [Catalytic activity/Vol] 70 U/L Normal 33-110 [facility] Comment on above: Performed By: #### 5 0023-1 #### JOLENE Cantu ([id number]) [facility] ([facility]) [id number] [place] [address] 01845 ALT With P-5'-P [Catalytic activity/Vol] 19 U/L Normal 7-45 [facility] Comment on above: Result Comment: Katia ents treated with Sulfasalazine may generate falsely decreased results for ALT. Performed By: #### 5 0023-1 #### JOLENE Cantu ([id number]) [facility] ([facility]) [address] [place] [address] Anion gap [Moles/Vol] 15 mmol/L Normal 10-20 [facility] Comment on above: Performed By: #### 5 0023-1 #### JOLENE Cantu ([id number]) [facility] ([facility]) [address] [place] [address] AST With P-5'-P [Catalytic activity/Vol] 18 U/L Normal 9-39 [facility] Comment on above: Performed By: #### 5 0023-1 #### JOLENE Cantu ([id number]) [facility] ([facility]) [address] [place] [address] Bilirubin [Mass/Vol] 0.5 mg/dL Normal 0.0-1.2 [facility] Comment on above: Performed By: #### 5 0023-1 #### JOLENE Cantu ([id number]) [facility] ([facility]) [address] [place] [address] Calcium [Mass/Vol] 9.2 mg/dL Normal 8.6-10.6 [facility] Comment on above: Performed By: #### 5 0023-1 #### JOLENE RONQUILLO L ([id number]) [facility] ([facility]) [address] [place] [address] Chloride [Moles/Vol] 101 mmol/L Normal 98-107 [facility] Comment on above: Performed By: #### 5 0023-1 #### JOLENE Cantu ([id number]) [facility] ([facility]) [address] [place] [address] CO2 [Moles/Vol] 24 mmol/L Normal 21-32 [facility] Comment on above: Performed By: #### 5 0023-1 #### JOLENE Cantu ([id number]) [facility] ([facility]) [address] [place] [address] Creatinine [Mass/Vol] 0.76 mg/dL Normal 0.50-1.05 [facility] Comment on above: Performed By: #### 5 0023-1 #### JOLENE Cantu ([id number]) [facility] ([facility]) [address] [place] [address] GFR/1.73 sq M.predicted MDRD (S/P/Bld) [Vol rate/Area] mL/min/{1.73_m2} Normal >60 [facility] Comment on above: Result Comment: Calc ulations of estimated GFR are performed using the 2020 CKD-EPI Study Refit equation without the race variable for the IDMS-Traceable creatinine methods. https://jasn.asnjournals.org/content/early//ASN.85446 03937 Performed By: #### 5 0023-1 #### JOLENE Cantu ([id number]) [facility] ([facility]) [address] [place] [address] Glucose [Mass/Vol] 101 mg/dL High 74-99 [facility] Comment on above: Performed By: #### 5 0023-1 #### JOLENE Cantu ([id number]) [facility] ([facility]) [address] [place] [address] Potassium [Moles/Vol] 4.0 mmol/L Normal 3.5-5.3 [facility] Comment on above: Performed By: #### 5 0023-1 #### JOLENE Cnatu ([id number]) [facility] ([facility]) [id number] [place] [address] Protein [Mass/Vol] 7.5 g/dL Normal 6.4-8.2 [facility] Comment on above: Performed By: #### 5 0023-1 #### JOLENE Cantu ([id number]) [facility] ([facility]) [address] [place] [address] Sodium [Moles/Vol] 136 mmol/L Normal 136-145 [facility] Comment on above: Performed By: #### 5 0023-1 #### JOLENE Cantu ([id number]) [facility] ([facility]) [address] [place] [address] Urea nitrogen [Mass/Vol] 10 mg/dL Normal 6-23 [facility] Comment on above: Performed By: #### 5 0023-1 #### JOLENE Cantu ([id number]) [facility] ([facility]) [address] [place] [address] ESR Westergren method (Bld) [Velocity]on 12-18-2023 ESR (Bld) [Velocity] 51 mm/h High 0-20 [facility] Comment on above: Performed By: #### 5 0023-1 #### JOLENE Cantu ([id number]) [facility] ([facility]) [address] [place] [address] Urinalysis complete W Reflex Culture panel (U)on 12-18-2023 Appearance (U) Clear Normal Clear [facility] Comment on above: Performed By: #### 5 0023-1 #### JOLENE Cantu ([id number]) [facility] ([facility]) [address] [place] [address] Bilirubin (U) [Mass/Vol] Negative Normal NEGATIVE [facility] Comment on above: Performed By: #### 5 0023-1 #### JOLENE Cantu ([id number]) [facility] ([facility]) [address] [place] [address]9485 Color (U) Colorless Normal Light-Yellow , Yellow, Dark-Yellow [facility] Comment on above: Performed By: #### 5 0023-1 #### JOLENE Cantu ([id number]) [facility] ([facility]) [address] [place] [address] Glucose Auto test strip (U) [Mass/Vol] Normal Normal Normal [facility] Comment on above: Performed By: #### 5 0023-1 #### JOLENE Cantu ([id number]) [facility] ([facility]) [id number] [place] [address] Ketones (U) [Mass/Vol] Negative Normal NEGATIVE [facility] Comment on above: Performed By: #### 5 0023-1 #### JOLENE Cantu ([id number]) [facility] ([facility]) [address] [place] [address]206 Leukocyte esterase Auto test strip Ql (U) Negative Normal NEGATIVE [facility] Comment on above: Performed By: #### 5 0023-1 #### JOLENE Cantu ([id number]) [facility] ([facility]) [address] [place] [address]14[address] Nitrite Auto test strip Ql (U) Negative Normal NEGATIVE [facility] Comment on above: Performed By: #### 5 0023-1 #### JOLENE Cantu ([id number]) [facility] ([facility]) [address] [place] [address] 13359 pH (U) 7.5 [pH] Normal 5.0, 5.5, 6.0, 6.5, 7.0, 7.5, 8.0 [facility] Comment on above: Performed By: #### 5 0023-1 #### JOLENE Cantu ([id number]) [facility] ([facility]) [address] [place] [address] 36541 Protein (U) [Mass/Vol] Negative Normal NEGAT ALEXANDRE, 10 (TRACE), 20 (TRACE) [facility] Comment on above: Performed By: #### 5 0023-1 #### JOLENE Cantu ([id number]) [facility] ([facility]) [address] [place] [address] 11759 RBC (U) [#/Vol] Negative Normal NEGATIVE [facility] Comment on above: Performed By: #### 5 0023-1 #### JOLENE Cantu ([id number]) [facility] ([facility]) [address] [place], [place] [address] Specific gravity (U) [Rel density] 1.004 Normal 1.005-1.035 [facility] Comment on above: Performed By: #### 5 0023-1 #### JOLENE Cantu ([id number]) [facility] ([facility]) [address] [place], [place] [address] Urobilinogen (U) [Mass/Vol] Normal Normal Normal [facility] Comment on above: Performed By: #### 5 0023-1 #### JOLENE Cantu ([id number]) [facility] ([facility]) [address] [place], [place] [address] CBC W Auto Differential pane l (Bld)on 12-15-2023 Basophils (Bld) [#/Vol] 0.01 x10*3/uL Normal 0.00-0.10 [facility] Comment on above: Performed By: #### 5 7021-8 #### SANTOSH BAI ([id number]) [facility] ([facility] [place] [place]) [address] [place] [address] Basophils/100 WBC (Bld) 0.1 % Normal 0.0-2.0 [facility] Comment on above: Performed By: #### 5 7021-8 #### SANTOSH BAI ([id number]) [facility] ([facility] [place] [place]) [address] [place] [address] Eosinophils (Bld) [#/Vol] 0.00 x10*3/uL Normal 0.00-0.70 [facility] Comment on above: Performed By: #### 5 7021-8 #### SANTOSH BAI ([id number]) [facility] ([facility] [place] [place]) [address] [place] [address] Eosinophils/100 WBC (Bld) 0.0 % Normal 0.0-6.0 [facility] Comment on above: Performed By: #### 5 7021-8 #### SANTOSH BAI ([id number]) [facility] ([facility] [place] [place]) [address] [place] [address] Erythrocyte distribution width (RBC) [Ratio] 13.2 % Normal 11.5-14.5 [facility] Comment on above: Performed By: #### 5 7021-8 #### SANTOSH BAI ([id number]) [facility] ([facility] [place] [place]) [address] [place] [address] Hematocrit (Bld) [Volume fraction] 40.3 % Normal 36.0-46.0 [facility] Comment on above: Performed By: #### 5 7021-8 #### SANTOSH BAI ([id number]) [facility] ([facility] [place] [place]) [address] [place] [address] Hemoglobin (Bld) [Mass/Vol] 13.1 g/dL Normal 12.0-16.0 [facility] Comment on above: Performed By: #### 5 7021-8 #### SANTOSH BAI ([id number]) [facility] ([facility] [place] [place]) [address] [place] [address] Immature granulocytes (Bld) [#/Vol] 0.05 x10*3/uL Normal 0.00-0.70 [facility] Comment on above: Performed By: #### 5 7021-8 #### SANTOSH BAI ([id number]) [facility] ([facility] [place] [place]) [address] [place] [address] Immature granulocytes/100 WBC (Bld) 0.6 % Normal 0.0-0.9 [facility] Comment on above: Result Comment: Aspen ture Granulocyte Count (IG) includes promyelocytes, myelocytes and metamyelocytes but does not include bands. Percent differential counts (%) should be interpreted in the context of the absolute cell counts (cells/UL). Performed By: #### 5 7021-8 #### SANTOSH BAI ([id number]) [facility] ([facility] [place] [place]) [address] [place] [address] Lymphocytes (Bld) [#/Vol] 0.89 x10*3/uL Low 1.20-4.80 [facility] Comment on above: Performed By: #### 5 7021-8 #### SANTOSH BAI ([id number]) [facility] ([facility] [place] [place]) [address] [place] [address] Lymphocytes/100 WBC (Bld) 11.4 % Normal 13.0-44.0 [facility] Comment on above: Performed By: #### 5 7021-8 #### SANTOSH BAI ([id number]) [facility] ([facility] [place] [place]) [address] [place] [phone] MCH (RBC) [Entitic mass] 31.0 pg Normal 26.0-34.0 [facility] Comment on above: Performed By: #### 5 7021-8 #### SANTOSH BAI ([id number]) [facility] ([facility] [place] [place]) [address] [place] [address] MCHC (RBC) [Mass/Vol] 32.5 g/dL Normal 32.0-36.0 [facility] Comment on above: Performed By: #### 5 7021-8 #### SANTOSH BAI ([id number]) [facility] ([facility] [place] [place]) [address] [place] [phone] MCV (RBC) [Entitic vol] 95 fL Normal 80-100 [facility] Comment on above: Performed By: #### 5 7021-8 #### SANTOSH BAI ([id number]) [facility] ([facility] [place] [place]) [address] [place] [address] Monocytes (Bld) [#/Vol] 0.24 x10*3/uL Normal 0.10-1.00 [facility] Comment on above: Performed By: #### 5 7021-8 #### SANTOSH BAI ([id number]) [facility] ([facility] [place] [place]) [address] [place] [address] Monocytes/100 WBC (Bld) 3.1 % Normal 2.0-10.0 [facility] Comment on above: Performed By: #### 5 7021-8 #### SANTOSH BAI ([id number]) [facility] ([facility] [place] [place]) [address] [place] [phone] Neutrophils (Bld) [#/Vol] 6.64 x10*3/uL Normal 1.20-7.70 [facility] Comment on above: Result Comment: Perc ent differential counts (%) should be interpreted in the context of the absolute cell counts (cells/uL). Performed By: #### 5 7021-8 #### SANTOSH BAI ([id number]) [facility] ([facility] [place] [place]) [address] [place] [address] Neutrophils/100 WBC (Bld) 84.8 % Normal 40.0-80.0 [facility] Comment on above: Performed By: #### 5 7021-8 #### SANTOSH BAI ([id number]) [facility] ([facility] [place] [place]) [address] [place] [phone] Nucleated RBC/100 WBC (Bld) [Ratio] 0.0 /100 WBCs Normal 0.0-0.0 [facility] Comment on above: Performed By: #### 5 7021-8 #### SANTOSH BAI ([id number]) [facility] ([facility] [place] [place]) [address] [place] [address] Platelets (Bld) [#/Vol] 303 x10*3/uL Normal 150-450 [facility] Comment on above: Performed By: #### 5 7021-8 #### SANTOSH BAI ([id number]) [facility] ([facility] [place] [place]) [address] [place] [address] RBC (Bld) [#/Vol] 4.23 x10*6/uL Normal 4.00-5.20 [facility] Comment on above: Performed By: #### 5 7021-8 #### SANTOSH BAI ([id number]) [facility] ([facility] [place] [place]) [address] [place] [address] WBC (Bld) [#/Vol] 7.8 x10*3/uL Normal 4.4-11.3 [facility] Comment on above: Performed By: #### 5 7021-8 #### SANTOSH BAI ([id number]) [facility] ([facility] [place] [place]) [address] [place] [address] CT ABDOMEN PELVIS W IV CONTR William 12-15-2023 CT ABDOMEN PELVIS W IV CONTRAST Interpreted By: Allyson Schultz, STUDY: CT ABDOMEN PELVIS W IV CONTRAST; CT LUMBAR SPINE W IV CONTRAST; 12/15/2023 7:50 pm INDICATION: Signs/Symptoms:h/o spinal stim c/b infections with wound vac in place, pain to surrounding areas radiating to flanks. COMPARISON: 12/07/2023 CT abdomen/pelvis ACCESSION NUMBER(S): [id number]; [id number] ORDERING CLINICIAN: PABLO GERONIMO TECHNIQUE: Contiguous axial images of the abdomen and pelvis were obtained after the intravenous administration of iodinated contrast. Coronal and sagittal reformatted images were reconstructed from the axial data. Multiplanar reformatted images of the lumbar spine were obtained. FINDINGS: CT LUMBAR SPINE: ALIGNMENT: No traumatic spondylolisthesis or traumatic facet widening. VERTEBRAE: No acute fracture. Vertebral body heights are maintained. SPINAL CANAL/INTERVERTEBRAL DISCS/NEURAL FORAMINA: No high-grade spinal canal stenosis. Varying degrees of degenerative disc disease, most significant at L4-5 with moderate disc height loss, vacuum disc phenomena, and a broad-based spur complex that could compress the descending left L5 nerve root given the location of the disc spur complex. There is mild bilateral L4-L5 facet arthropathy in severe left L5-S1 facet arthropathy. There is mild to moderate bilateral L4-L5 neural foraminal stenosis (left > right). There is moderate-severe right and mild left L5-S1 neural foraminal stenosis.. PARASPINAL SOFT TISSUES: No paravertebral soft tissue hematoma. LOWER CHEST: No acute abnormality. ABDOMEN/PELVIS: ABDOMINAL WALL: There is a wound VAC overlying a soft tissue ulceration in the midline of the back. At the base of the ulcer there is skin thickening and mild subjacent fat stranding. The degree of skin thickening is slightly increased in thickness and extent. There is no underlying fluid collection. LIVER: No significant parenchymal abnormality. BILE DUCTS: No significant intrahepatic or extrahepatic dilatation. GALLBLADDER: Surgically absent. PANCREAS: No significant abnormality. SPLEEN: No significant abnormality. ADRENALS: There is a 1.5 cm left adrenal adenoma and a 1.5 cm right adrenal adenoma. KIDNEYS, URETERS, BLADDER: No significant abnormality. REPRODUCTIVE ORGANS: Status post hysterectomy. VESSELS: Mild aortic atherosclerosis without AAA. RETROPERITONEUM/LYMPH NODES: No acute retroperitoneal abnormality. No enlarged lymph nodes. BOWEL/MESENTERY/PERITON EUM: No inflammatory bowel wall thickening or dilatation. Normal appendix. No ascites, free air, or fluid collection. MUSCULOSKELETAL: No acute osseous abnormality. No suspicious osseous lesion. IMPRESSION: Wound VAC overlying a soft tissue ulceration in the midline of the back. At the base of the ulcer there is skin thickening and mild subjacent fat stranding. The degree of skin thickening is slightly increased in thickness and extent. There is no underlying fluid collection. No evidence of paraspinal infection or discitis osteomyelitis. Degenerative changes of lumbar spine as described above, most advanced at L4-5 and L5-S1 at which there could be impingement of the descending left L5 nerve root at L4-L5 and intraforaminal right L5 nerve root at L5-S1. MACRO: None. Signed by: Allyson Schultz 12/15/2023 8:37 PM Dictation workstation: [id number] [facility] CT LUMBAR SPINE W IV CONTRAS Ton 12-15-2023 CT LUMBAR SPINE W IV CONTRAST Interpreted By: Allyson Schultz, STUDY: CT ABDOMEN PELVIS W IV CONTRAST; CT LUMBAR SPINE W IV CONTRAST; 12/15/2023 7:50 pm INDICATION: Signs/Symptoms:h/o spinal stim c/b infections with wound vac in place, pain to surrounding areas radiating to flanks. COMPARISON: 12/07/2023 CT abdomen/pelvis ACCESSION NUMBER(S): [id number]; [id number] ORDERING CLINICIAN: PABLO GERONIMO TECHNIQUE: Contiguous axial images of the abdomen and pelvis were obtained after the intravenous administration of iodinated contrast. Coronal and sagittal reformatted images were reconstructed from the axial data. Multiplanar reformatted images of the lumbar spine were obtained. FINDINGS: CT LUMBAR SPINE: ALIGNMENT: No traumatic spondylolisthesis or traumatic facet widening. VERTEBRAE: No acute fracture. Vertebral body heights are maintained. SPINAL CANAL/INTERVERTEBRAL DISCS/NEURAL FORAMINA: No high-grade spinal canal stenosis. Varying degrees of degenerative disc disease, most significant at L4-5 with moderate disc height loss, vacuum disc phenomena, and a broad-based spur complex that could compress the descending left L5 nerve root given the location of the disc spur complex. There is mild bilateral L4-L5 facet arthropathy in severe left L5-S1 facet arthropathy. There is mild to moderate bilateral L4-L5 neural foraminal stenosis (left > right). There is moderate-severe right and mild left L5-S1 neural foraminal stenosis.. PARASPINAL SOFT TISSUES: No paravertebral soft tissue hematoma. LOWER CHEST: No acute abnormality. ABDOMEN/PELVIS: ABDOMINAL WALL: There is a wound VAC overlying a soft tissue ulceration in the midline of the back. At the base of the ulcer there is skin thickening and mild subjacent fat stranding. The degree of skin thickening is slightly increased in thickness and extent. There is no underlying fluid collection. LIVER: No significant parenchymal abnormality. BILE DUCTS: No significant intrahepatic or extrahepatic dilatation. GALLBLADDER: Surgically absent. PANCREAS: No significant abnormality. SPLEEN: No significant abnormality. ADRENALS: There is a 1.5 cm left adrenal adenoma and a 1.5 cm right adrenal adenoma. KIDNEYS, URETERS, BLADDER: No significant abnormality. REPRODUCTIVE ORGANS: Status post hysterectomy. VESSELS: Mild aortic atherosclerosis without AAA. RETROPERITONEUM/LYMPH NODES: No acute retroperitoneal abnormality. No enlarged lymph nodes. BOWEL/MESENTERY/PERITON EUM: No inflammatory bowel wall thickening or dilatation. Normal appendix. No ascites, free air, or fluid collection. MUSCULOSKELETAL: No acute osseous abnormality. No suspicious osseous lesion. IMPRESSION: Wound VAC overlying a soft tissue ulceration in the midline of the back. At the base of the ulcer there is skin thickening and mild subjacent fat stranding. The degree of skin thickening is slightly increased in thickness and extent. There is no underlying fluid collection. No evidence of paraspinal infection or discitis osteomyelitis. Degenerative changes of lumbar spine as described above, most advanced at L4-5 and L5-S1 at which there could be impingement of the descending left L5 nerve root at L4-L5 and intraforaminal right L5 nerve root at L5-S1. MACRO: None. Signed by: Allyson Schultz 12/15/2023 8:37 PM Dictation workstation: [id number] Normal [facility] Comprehensive metabolic 2000 panelon 12-15-2023 Albumin BCP dye [Mass/Vol] 4.2 g/dL Normal 3.4-5.0 [facility] Comment on above: Performed By: #### 2 4323-8 #### SANTOSH BAI ([id number]) [facility] ([facility] [place] [place]) [address] [place] [address] ALP [Catalytic activity/Vol] 79 U/L Normal 33-110 [facility] Comment on above: Performed By: #### 2 4323-8 #### SANTOSH BAI ([id number]) [facility] ([facility] [place]) [address] [place] [address] ALT With P-5'-P [Catalytic activity/Vol] 21 U/L Normal 7-45 [facility] Comment on above: Result Comment: Katia ents treated with Sulfasalazine may generate falsely decreased results for ALT. Performed By: #### 2 4323-8 #### SANTOSH BAI ([id number]) [facility] ([facility] [place]) [address] [place] [phone] Anion gap [Moles/Vol] 11 mmol/L Normal 10-20 [facility] Comment on above: Performed By: #### 2 4323-8 #### SANTOSH BAI ([id number]) [facility] ([facility] [place]) [address] [place] [address] AST With P-5'-P [Catalytic activity/Vol] 18 U/L Normal 9-39 [facility] Comment on above: Performed By: #### 2 4323-8 #### SATNOSH BAI ([id number]) [facility] ([facility] [place]) [address] [place] [address] Bilirubin [Mass/Vol] 0.2 mg/dL Normal 0.0-1.2 [facility] Comment on above: Performed By: #### 2 4323-8 #### SANTOSH BAI ([id number]) [facility] ([facility] [place]) [address] [place] [address] Calcium [Mass/Vol] 8.5 mg/dL Low 8.6-10.3 [facility] Comment on above: Performed By: #### 2 3-8 #### SANTOSH BAI ([id number]) [facility] ([facility] [place]) [address] [place] [address] Chloride [Moles/Vol] 105 mmol/L Normal 98-107 [facility] Comment on above: Performed By: #### 2 4323-8 #### SANTOSH BAI ([id number]) [facility] ([facility] [place]) [address] [place] [address] CO2 [Moles/Vol] 24 mmol/L Normal 21-32 [facility] Comment on above: Performed By: #### 2 4323-8 #### SANTOSH BAI ([id number]) [facility] ([facility] [place]) [address] [place] [address] Creatinine [Mass/Vol] 0.73 mg/dL Normal 0.50-1.05 [facility] Comment on above: Performed By: #### 2 4323-8 #### SANTOSH BAI ([id number]) [facility] ([facility] [place]) [address] [place] [address] GFR/1.73 sq M.predicted MDRD (S/P/Bld) [Vol rate/Area] mL/min/{1.73_m2} Normal >60 [facility] Comment on above: Result Comment: Calc ulations of estimated GFR are performed using the 2020 CKD-EPI Study Refit equation without the race variable for the IDMS-Traceable creatinine methods. https://jasn.asnjournals.org/content/early//ASN.94130 13151 Performed By: #### 2 4323-8 #### SANTOSH BAI ([id number]) [facility] ([facility] [place]) [address] [place] [address] Glucose [Mass/Vol] 114 mg/dL High 74-99 [facility] Comment on above: Performed By: #### 2 4323-8 #### SANTOSH BAI ([id number]) [facility] ([facility] [place]) [address] [place] [address] Potassium [Moles/Vol] 4.5 mmol/L Normal 3.5-5.3 [facility] Comment on above: Performed By: #### 2 4323-8 #### SANTOSH BAI ([id number]) [facility] ([facility] [place]) [address] [place] [address] Protein [Mass/Vol] 7.2 g/dL Normal 6.4-8.2 [facility] Comment on above: Performed By: #### 2 4323-8 #### SANTOSH BAI ([id number]) [facility] ([facility] [place]) [address] [place] [phone] Sodium [Moles/Vol] 135 mmol/L Low 136-145 [facility] Comment on above: Performed By: #### 2 4323-8 #### SANTOSH BAI ([id number]) [facility] ([facility] [place]) [address] [place] [phone] Urea nitrogen [Mass/Vol] 12 mg/dL Normal 6-23 [facility] Comment on above: Performed By: #### 2 4323-8 #### SANTOSH BAI ([id number]) [facility] ([facility] [place]) [address] [place], [place] [id number] Magnesiumon 12-15-2023 Magnesium [Mass/Vol] 1.90 mg/dL Normal 1.60-2.40 [facility] Comment on above: Performed By: #### 1 9123-9 #### SANTOSH BAI ([id number]) [facility] ([facility] [place]) [address] [place], [place] [id number] PT and aPTT panel Coag (PPP) on 12-15-2023 aPTT Coag (PPP) [Time] 31 s Normal 27-38 [facility] [place] Comment on above: Order Comment: The A PTT is no longer used for monitoring Unfractionated Heparin Therapy. For monitoring Heparin Therapy, use the Heparin Assay. Performed By: #### 3 4529-8 #### SANTOSH BAI ([id number]) [facility] ([facility] – [place] [address] [id number] INR Coag (PPP) [Relative time] 0.9 Normal 0.9-1.1 [facility] Comment on above: Order Comment: The A PTT is no longer used for monitoring Unfractionated Heparin Therapy. For monitoring Heparin Therapy, use the Heparin Assay. Performed By: #### 3 4529-8 #### SANTOSH BAI ([id number]) [facility] ([facility] – [place]) [address] [id number] PT Coag (PPP) [Time] 10.5 s Normal 9.8-12.8 [facility] Comment on above: Order Comment: The A PTT is no longer used for monitoring Unfractionated Heparin Therapy. For monitoring Heparin Therapy, use the Heparin Assay. Performed By: #### 3 4529-8 #### SANTOSH BAI ([id number]) [facility] ([facility] – [place]) [address] [id number] ED Note-Physicianon 12-14-19 ED Note-Physician ED Note-Physician Basic Information Time Seen: Kristie Boss PA-C 12/13/2023 13:46 Chief Complaint Patient presents with wound vac placed to low lumbar on Saturday. Patient verbalized pain that started last night History of Present Illness This patient presents emergency department chief complaint of discomfort after having a wound VAC applied to her lower lumbar spine on Saturday. This was performed at [facility]. She states this was due to an infection after a surgery. She states is just very uncomfortable and she has some itching around the outer edges of the adhesive. Patient denies any fevers chills or sweats. No other new complaints. Review of Systems Constitutional: Denies weight loss, fevers, chills, sweats, malaise Eyes: Denies visual changes, eye pain, double vision, scotomas, floaters ENT: Denies runny nose, epistaxis, sinus pain, ear pain, ringing in ears, tooth ache, sore throat, pain with swallowing Cardiovascular: Denies chest pain, shortness of breath, orthopnea, edema, palpitations, loss of consciousness, claudication Respiratory: Denies cough, sputum production, wheezing, hemoptysis, shortness of breath, dyspnea on exertion Gastrointestinal: Denies abdominal pain, unintentional weight loss, difficulty swallowing, indigestion, bloating, cramping, loss of appetite, nausea, vomiting, diarrhea, constipation, hematochezia, melena Genitourinary: Denies any incontinence of urine, dysuria, hematuria, nocturia, polyuria, hesitancy, frequency, urgency, burning Musculoskeletal: Denies joint pain, morning stiffness, joint swelling, decreased range of motion, crepitus Integumentary: Denies any pruritus, rashes, lesions, wounds, petechiae Neurologic: Denies any changes in sight, smell, hearing, taste, seizures, headache, paresthesia, numbness, weakness, balance disturbance Psychiatric denies any depression, change in sleep patterns, anxiety, difficulty concentrating, paranoia, anhedonia, lack of energy, bel Hematologic/lymphatic: Denies any purpura, petechiae, excessive bleeding, bruising Physical Exam Vitals & Measurements T: 36.9 ?C(Oral) HR: 91(Peripheral) RR: 18 BP: 134/90 SpO2: 99% HT: 160 cm WT: 115.2 kg BMI: 45 Vital Signs reviewed and noted. General: Alert, no acute distress, patient resting comfortably Skin: warm, intact, no pallor noted. Wound VAC is in place to the lower back. The adhesive is well adhering. There are some mild erythema to the periphery of the dressing. There is no induration. There is no lymphangitic streaking. Head: Normocephalic, atraumatic Eye: Normal conjunctiva Cardiac: Normal peripheral perfusion Respiratory: No acute distress Musculoskeletal: No deformity, full ROM. Neurological: alert and oriented, normal sensory and motor observed. Psychiatric: Cooperative Medical Decision Making MEDICAL DECISION MAKING Number and Complexity of Problems Differential Diagnosis: Discomfort to the periphery of the dressing of the wound VAC, cellulitis, allergic reaction MDM Data External documents reviewed: Not applicable My EKG interpretation: Noted in chart if applicable My CT interpretation: Noted in chart if applicable My X-ray interpretation: Noted in chart if applicable My Ultrasound interpretation: Not applicable Decision rules/scores evaluated: Noted in chart if applicable Discussed with: Not applicable Treatment and Disposition ED Course: Patient was interviewed and examined. I discussed with the patient wound VAC is in place. I discussed with her there will be a pulling type sensation as that is the whole purpose of the wound VAC to draw out bacteria. The patient states she does have some itching around the edges of the dressing. I discussed with her that we can provide her with a short course of steroids as well as some Flonase spray that she can apply to her skin prior to application of the adhesive from this point forward. I discussed with her we do not remove wound vacs unless there is a very good indication for this. At this time her wound VAC is performing as it should. I strongly recommended that the patient follow-up with [facility]. She states she does not want to drive all the way to [place]. I discussed with her she might want to contact them and see if she can be followed closer such as the [facility]. I discussed the discharge diagnosis, plan of care, home-going instructions and prescriptions with the patient. She is in agreement with the plan of care. Patient was discharged home in stable condition. She is to return to the emergency department for any further problems or concerns. Shared decision making: I discussed the discharge diagnosis and plan of care with the patient. She is in agreement with the plan of care. Code status: Not applicable Assessment/Plan 1. Allergic reaction to adhesive (T78.49XA: Other allergy, initial encounter) Orders: fluticasone nasal, 2 spray(s), Topical, Daily, 16 gram, Refill(s) 0, each nostr (more content not included)... Normal [facility] Comment on above: Result Comment: Elec tronically Signed By: Kristie Boss PA-C\.br\Date and Time Signed: 12/13/23 14:15 EDT\.br\Electronically Co-Signed By: Jorge Mcintosh DO\.br\Date and Time Co-Signed: 12/14/23 07:22 EDT ED Clinical Summaryon 2023 ED Clinical Summary ED Clinical Summary [place] [id number] ED Clinical Summary Person Information Name: JERAD TRACY Alesha/[facility] Age: 48 Years : 1975 Sex: Female Language: Serbian PCP: Cheyanne Rincon Marital Status: Visit Id: Visit Reason: Back pain; Wound drain evaluation; pain with wound vac Speciality: Acuity: 4 Enc Type: Emergency Med Service: Emergency Arrival: 12/13/2023 13:34:05 Discharge: 12/13/2023 14:17:50 LOS: 000 00:43 Checkin: 12/13/2023 13:34:05 Checkout: 12/13/2023 14:17:50 Dispo Type: Home (Routine DC) EVENTS: Event Name Event Status Request Date/Time Start Date/Time Complete Date/Time Arrive Complete 12/13/2023 13:34:05 12/13/2023 13:34:05 12/13/2023 13:34:05 Document Home Meds Request 12/13/2023 13:34:05 Triage Complete 12/13/2023 13:34:05 12/13/2023 13:44:58 12/13/2023 13:44:58 Bed Assign Complete 12/13/2023 13:40:17 12/13/2023 13:40:17 12/13/2023 13:40:17 Dr Exam Complete 12/13/2023 13:40:17 12/13/2023 13:46:47 12/13/2023 13:46:47 RN Exam Complete 12/13/2023 13:40:17 12/13/2023 14:17:22 12/13/2023 14:17:22 Registration Complete 12/13/2023 13:46:47 12/13/2023 14:13:28 12/13/2023 14:13:28 Dr Exam Complete 12/13/2023 13:48:10 12/13/2023 13:48:10 12/13/2023 13:48:10 Discharge Complete 12/13/2023 14:02:03 12/13/2023 14:18:11 12/13/2023 14:18:11 Reg Complete Request 12/13/2023 14:13:28 Reg Bed Request Complete 12/13/2023 14:13:28 12/13/2023 14:13:28 12/13/2023 14:13:28 Transfer Complete 12/13/2023 14:18:11 12/13/2023 14:18:11 12/13/2023 14:18:11 ADDRESS: [address] [place] [address] [facility] [phone] PHYS DOC NOTES: MEDICAL INFORMATION: Prescriptions Given: New Medications [facility], [address] [place], [place] [id number], [phone] fluticasone nasal (Flonase 0.05 mg/inh [place]) 2 Sprays Topical every day. each nostril. Refills: 0. predniSONE (predniSONE 10 mg Tab) 1 Dose Separtor By Mouth As Directed. Take 3 tabs by mouth daily x3 days, then 2 tabs daily x3 days, then 1 tab daily x3 days.. Refills: 0. Medications to Continue with No Changes Other Medications cyclobenzaprine (cyclobenzaprine 10 mg Tab) 1 Tablets By Mouth 3 times a day as needed for spasm. Refills: 0. diclofenac topical (Voltaren Gel 1% Gel) 1 Application Topical 4 times a day as needed for pain. Refills: 0. diflunisal (diflunisal 500 mg Tab) 1 Tablets By Mouth every 12 hours. Refills: 0. fluoxetine (FLUoxetine 60 mg oral tablet) 1 Tablets By Mouth every day. Refills: 1. ibuprofen (ibuprofen 800 mg Tab) 1 Tablets By Mouth 3 times a day. Refills: 0. lidocaine topical (Lidoderm 5% Patch) 1 Patches Topical every day. apply 12 hours on and 12 hours off daily. Refills: 0. metoclopramide (Reglan 10 mg Tab) 1 Tablets By Mouth every 6 hours. Refills: 0. naproxen (naproxen 500 mg Tab) 1 Tablets By Mouth 2 times a day. Take one tab by mouth two times a day. Refills: 0. ondansetron (Zofran 4 mg Tab) 1 Tablets By Mouth every 6 hours as needed Nausea. Take one tab by mouth every six hours as needed for nausea. Refills: 0. PATIENT EDUCATION INFORMATION: Instructions: Allergies, Adult, Dbmo-ak-Fpmx Follow up: With: Address: When: Cheyanne Rosas [address] [place] [address] [address] [phone] Business (1) In 3 days 12/16/2023 DIAGNOSIS: 1:Allergic reaction to adhesive Normal [facility] ED Patient Summaryon 024 ED Patient Summary ED Patient Summary [address] [address] Patient Discharge Instructions Person Information Name: JERAD TRACY Age: 48 Years Arrival Date: 12/13/2023 13:34:05 Discharge Diagnosis: 1:Allergic reaction to adhesive Primary Care Physician: Cheyanne Rincon Provider Information Primary Provider: Jorge Mcintosh DO [facility] [employer] Blasting:None The exam and treatment you received in the Emergency Department were for an urgent problem and are not intended as complete care. It is important that you follow up with a doctor, nurse practitioner, or physician?s per diem physical therapist assistant for ongoing care. If your symptoms become worse or you do not improve as expected and you are unable to reach your usual health care provider, you should return to the Emergency Department. We are available 24 hours a day. JERAD TRACY has been given the following list of patient education materials, prescriptions and follow-up instructions: Follow-up Instructions: With: Address: When: Cheyanne Rosas [address] [facility], [facility], [place] [phone] Business (1) In 3 days 12/16/2023 In the event that this physician does not participate in your insurance network, please consult with your insurance company to find a nearby participating provider. Patient Education Materials: Allergies, Adult, Skkw-qu-Enbi A MESSAGE TO ALL PATIENTS REGARDING OPIOIDS PRESCRIPTION OPIOIDS: WHAT YOU NEED TO KNOW Prescription opioids can be used to help relieve lothfzpz-fm-ntjndj pain and are often prescribed following a surgery or injury, or for certain health conditions. These medications can be an important part of the treatment but also come with serious risks. It is important to work with your healthcare provider to make sure you are getting the safest, most effective care. WHAT ARE THE RISKS AND SIDE EFFECTS OF OPIOID USE? Prescription opioids carry serious risks of addiction and overdose, especially with prolonged use. An opioid overdose, often marked by slowed breathing, can cause sudden . The use of prescription opioids can have a number of side effects as well, even when taken as directed: ? Tolerance?meaning you might need to take more of the medication for the same pain relief ? Physical dependence?meaning you have symptoms of withdrawal when a medication is stopped ? Increased sensitivity to pain ? Constipation ? Nausea, vomiting, and dry mouth ? Sleepiness and dizziness ? Confusion ? Depression ? Low levels of testosterone that can result in lower sex drive, energy, and strength ? Itching and sweating RISKS ARE GREATER WITH: ? History of drug misuse, substance use disorder, or overdose ? Mental health conditions (such as depression or anxiety) ? Sleep apnea ? Older age (65 years and older) ? Avoid alcohol while taking prescription opioids. Also, unless specifically advised by your health care provider, medications to avoid include: ? Benzodiazepines (such as Xanax or Valium) ? Muscle relaxants (such as Soma or Flexeril) ? Hypnotics (such as Ambien or Lunesta) ? Other prescription opioids KNOW YOUR OPTIONS Talk to your health care provider about ways to manage your pain that don?t involve prescription opioids. Some of these options may actually work better and have fewer risks and side effects. Options may include: ? Pain relievers such as acetaminophen, ibuprofen, and naproxen ? Some medication that are also used for depression or seizures ? Physical therapy and exercise ? Cognitive behavioral therapy, a psychological, goal-directed approach, in which patients learn how to modify physical, behavioral, and emotional triggers of pain and stress. IF YOU ARE PRESCRIBED OPIOIDS FOR PAIN: ? Never take opioids in greater amounts or more often than prescribed. ? Follow up with your primary health care provider. o Work together to create a plan on how to manage your pain. o Talk about ways to help manage your pain that don?t involve prescription opioids. o Talk about any and all concerns and side effects. ? Help prevent misuse and abuse o Never sell or share prescription opioids. o Never use another person?s prescription opioids. ? Store prescription opioids in a secure place and out of reach of others (this may include visitors, children, friends, and family). ? Safely dispose of unused prescription opioids: Find your community drug take-back program or your pharmacy mail-back program, or flush them down the toilet, following guidance from the Food and Drug Administration (www.fda.gov/Drugs/Reso urcesForYou). ? Visit www.cdc.gov/drugoverdos e to learn about the risks of opioids abuse and overdose. ? If you believe you may be struggling with addiction, tell your health plant health care technician and ask for guidance or call [facility] National Help (more content not included)... Normal [facility] CT HEAD WO IV CONTRASTon CT HEAD WO IV CONTRAST Interpreted By: Kati Cordova, STUDY: CT HEAD WO IV CONTRAST; 12/10/2023 4:33 am INDICATION: Signs/Symptoms:fall, syncope head trauma r/o sah, ich. COMPARISON: None. ACCESSION NUMBER(S): [id number] ORDERING CLINICIAN: DECLAN KRISHNAMURTHY TECHNIQUE: Axial noncontrast CT images of the head. FINDINGS: BRAIN PARENCHYMA: Castro-white matter interfaces are preserved. No mass effect or midline shift. HEMORRHAGE: No acute intracranial hemorrhage. VENTRICLES and EXTRA-AXIAL SPACES: The ventricles and sulci are within normal limits in size for brain volume. No abnormal extraaxial fluid collection. EXTRACRANIAL SOFT TISSUES: Within normal limits. PARANASAL SINUSES/MASTOIDS: The visualized paranasal sinuses and mastoid air cells are aerated. CALVARIUM: No depressed skull fracture. No destructive osseous lesion. OTHER FINDINGS: None. IMPRESSION: No acute intracranial abnormality. MACRO: None Signed by: Kati Beth 12/10/2023 4:41 AM Dictation workstation: [id number] Normal [facility] ECG 12-LEADon 12-10-2023 ECG 12-LEAD Ventricular Rate 68 Atrial Rate 68 P-R Interval 126 QRS Duration 88 Q-T Interval 450 QTC Calculation(Bazett) 478 P Orient 39 R Orient 20 T Orient 12 QRS Count 12 Q Onset 217 P Onset 154 P Offset 201 T Offset 442 QTC Fredericia 469 Diagnosis Normal sinus rhythm with sinus arrhythmia Normal ECG When compared with ECG of 09-DEC-2023 13:48, No significant change was found See ED provider note for full interpretation and clinical correlation Confirmed by Samantha Cain ([id number]) on 12/10/2023 1:59:40 AM [facility] Urinalysis complete panel (U )on 12-10-2023 Appearance (U) Turbid Normal Clear [facility] Comment on above: Performed By: #### 5 0023-1 #### JOLENE Cantu ([id number]) [facility] ([facility]) [address] [place] [address]44 Bilirubin (U) [Mass/Vol] Negative Normal NEGATIVE [facility] Comment on above: Performed By: #### 5 0023-1 #### JOLENE Cantu ([id number]) [facility] ([facility]) [address] [place] [address] 31414 Color (U) Yellow Normal Light-Yellow , Yellow, Dark-Yellow [facility] Comment on above: Performed By: #### 5 0023-1 #### JOLENE Cantu ([id number]) [facility] ([facility]) [address] [place] [address] 66682 Glucose Auto test strip (U) [Mass/Vol] Normal Normal Normal [facility] Comment on above: Performed By: #### 5 0023-1 #### JOLENE Cantu ([id number]) [facility] ([facility]) [address] [place] [address] 94625 Ketones (U) [Mass/Vol] 10 (1+) Abnormal NEGATIVE Un [facility] Comment on above: Performed By: #### 5 0023-1 #### JOLENE Cantu ([id number]) [facility] ([facility]) [address] [place] [address] 97171 Leukocyte esterase Auto test strip Ql (U) 25 Robert/???L Abnormal NEGATIVE [facility] Comment on above: Performed By: #### 5 0023-1 #### JOLENE Cantu ([id number]) [facility] ([facility]) [address] [place] [address] 72106 Nitrite Auto test strip Ql (U) Negative Normal NEGATIVE [facility] Comment on above: Performed By: #### 5 0023-1 #### JOLENE Cantu ([id number]) [facility] ([facility]) [address] [place] [address] 44643 pH (U) 6.0 [pH] Normal 5.0, 5.5, 6.0, 6.5, 7.0, 7.5, 8.0 [facility] Comment on above: Performed By: #### 5 0023-1 #### JOLENE Cantu ([id number]) [facility] ([facility]) [address] [place] [address] 44120 Protein (U) [Mass/Vol] 50 (1+) Abnormal NEGAT ALEXANDRE, 10 (TRACE), 20 (TRACE) [facility] Comment on above: Performed By: #### 5 0023-1 #### JOLENE Cantu ([id number]) [facility] ([facility]) [id number] [place] [address] RBC (U) [#/Vol] Negative Normal NEGATIVE [facility] Comment on above: Performed By: #### 5 0023-1 #### JOLENE Cantu ([id number]) [facility] ([facility]) [address] [place], [place] [phone] Specific gravity (U) [Rel density] 1.035 Normal 1.005-1.035 [facility] Comment on above: Performed By: #### 5 0023-1 #### JOLENE Cantu ([id number]) [facility] ([facility]) [address] [place] [address] Urobilinogen (U) [Mass/Vol] 4 (2+) Abnormal Normal [facility] Comment on above: Result Comment: Some pigments and medications may cause a false positive urobilinogen. Performed By: #### 5 0023-1 #### JOLENE Cantu ([id number]) [facility] ([facility]) [address] [place], [place] [phone] Urinalysis microscopic panel Auto Ql (U)on 12-10-2023 Calcium oxalate crystals Computer assisted (U) [#/Area] 4+ /HPF Abnormal NONE, 1+ [facility] Comment on above: Performed By: #### 5 0023-1 #### JOLENE Cantu ([id number]) [facility] ([facility]) [address] [place], [place] [address] Epithelial cells.squamous Auto (Urine sed) [#/Area] 10-25 (FEW) Normal Reference range not established. [facility] Comment on above: Performed By: #### 5 0023-1 #### JOLENE Cantu ([id number]) [facility] ([facility]) [address] [place] [address] Mucus Auto (Urine sed) [#/Area] 4+ /LPF Normal Reference range not established. [facility] Comment on above: Performed By: #### 5 0023-1 #### JOLENE RONQUILLO L ([id number]) [facility] ([facility]) [address] [place] [address] RBC Auto (Urine sed) [#/Area] 1-2 Normal NONE, 1-2, 3-5 [facility] Comment on above: Performed By: #### 5 0023-1 #### JOLENE SCHMOTZER L ([id number]) [facility] ([facility]) [address] [place] [address] WBC Auto (Urine sed) [#/Area] 1-5 Normal 1-5, NONE [facility] Comment on above: Performed By: #### 5 0023-1 #### JOLENE WELSHMOTZER L ([id number]) [facility] ([facility]) [address] [place] [address] 59475 XR CHEST 2 VIEWSon XR CHEST 2 VIEWS Interpreted By: Kati Parra and Beyersdorf Conner STUDY: XR CHEST 2 VIEWS; 12/10/2023 1:25 am INDICATION: Signs/Symptoms:chest tightness r/o pleural effusion pneumothorax. COMPARISON: Two-view chest 12/07/2023 ACCESSION NUMBER(S): [id number] ORDERING CLINICIAN: ROBERTO APARICIO FINDINGS: PA and lateral radiographs of the chest were provided. CARDIOMEDIASTINAL SILHOUETTE: Cardiomediastinal silhouette is normal in size and configuration. LUNGS: No consolidation, pleural effusion, or pneumothorax. ABDOMEN: No remarkable upper abdominal findings. BONES: No acute osseous changes. IMPRESSION: 1. No acute cardiopulmonary process. I personally reviewed the image(s)/study and resident interpretation. I agree with the findings as stated by resident Amado Todd. Data analyzed and images interpreted at [place], [place]. MACRO: None Signed by: Kati Beth 12/10/2023 2:29 AM Dictation workstation: [id number] Normal [facility] CBC W Auto Differential pane l (Bld)on 12-09-2023 Basophils (Bld) [#/Vol] 0.01 x10*3/uL Normal 0.00-0.10 [facility] Comment on above: Performed By: #### 5 0023-1 #### JOLENE Cantu ([id number]) [facility] ([facility]) [address] [place] [address] 04733 Basophils/100 WBC (Bld) 0.2 % Normal 0.0-2.0 [facility] Comment on above: Performed By: #### 5 0023-1 #### JOLENE Cantu ([id number]) [facility] ([facility]) [address] [place] [address] 97450 Eosinophils (Bld) [#/Vol] 0.28 x10*3/uL Normal 0.00-0.70 [facility] Comment on above: Performed By: #### 5 3-1 #### JOLENE Cantu ([id number]) [facility] ([facility]) [address] [place] [address] 74752 Eosinophils/100 WBC (Bld) 4.3 % Normal 0.0-6.0 [facility] Comment on above: Performed By: #### 5 0023-1 #### JOLENE Cantu ([id number]) [facility] ([facility]) [address] [place] [address] 03053 Erythrocyte distribution width (RBC) [Ratio] 12.6 % Normal 11.5-14.5 [facility] Comment on above: Performed By: #### 5 3-1 #### JOLENE Cantu ([id number]) [facility] ([facility]) [address] [place] [address]32 Hematocrit (Bld) [Volume fraction] 35.8 % Low 36.0-46.0 [facility] Comment on above: Performed By: #### 5 3-1 #### JOLENE Cantu ([id number]) [facility] ([facility]) [address] [place] [address] 92692 Hemoglobin (Bld) [Mass/Vol] 12.5 g/dL Normal 12.0-16.0 [facility] Comment on above: Performed By: #### 5 3-1 #### JOLENE Cantu ([id number]) [facility] ([facility]) [address] [place] [address] Immature granulocytes (Bld) [#/Vol] 0.08 x10*3/uL Normal 0.00-0.70 [facility] Comment on above: Performed By: #### 5 0023-1 #### JOLENE Cantu ([id number]) [facility] ([facility]) [address] [place] [address] 89774 Immature granulocytes/100 WBC (Bld) 1.2 % High 0.0-0.9 [facility] [facility] Comment on above: Result Comment: Aspen ture Granulocyte Count (IG) includes promyelocytes, myelocytes and metamyelocytes but does not include bands. Percent differential counts (%) should be interpreted in the context of the absolute cell counts (cells/UL). Performed By: #### 5 0023-1 #### JOLENE Cantu ([id number]) [facility] ([facility]) [id number] [place] [address] 81541 Lymphocytes (Bld) [#/Vol] 2.32 x10*3/uL Normal 1.20-4.80 [facility] Comment on above: Performed By: #### 5 0023-1 #### JOLENE Cantu ([id number]) [facility] ([facility]) [id number] [place] [address] 31163 Lymphocytes/100 WBC (Bld) 35.7 % Normal 13.0-44.0 [facility] Comment on above: Performed By: #### 5 0023-1 #### JOLENE Cantu ([id number]) [facility] ([facility]) [address] [place] [address] 98812 MCH (RBC) [Entitic mass] 30.6 pg Normal 26.0-34.0 [facility] Comment on above: Performed By: #### 5 0023-1 #### JOLENE Cantu ([id number]) [facility] ([facility]) [address] [place] [address] 25272 MCHC (RBC) [Mass/Vol] 34.9 g/dL Normal 32.0-36.0 [facility] Comment on above: Performed By: #### 5 0023-1 #### JOLNEE Cantu ([id number]) [facility] ([facility]) [address] [place] [address] 10292 MCV (RBC) [Entitic vol] 88 fL Normal 80-100 [facility] Comment on above: Performed By: #### 5 0023-1 #### JOLENE Cnatu ([id number]) [facility] ([facility]) [address] [place] [address] 75286 Monocytes (Bld) [#/Vol] 0.52 x10*3/uL Normal 0.10-1.00 [facility] Comment on above: Performed By: #### 5 0023-1 #### JOLENE Cantu ([id number]) [facility] ([facility]) [address] [place] [address] 23064 Monocytes/100 WBC (Bld) 8.0 % Normal 2.0-10.0 [facility] Comment on above: Performed By: #### 5 0023-1 #### JOLENE Cantu ([id number]) [facility] ([facility]) [address] [place] [address] 00494 Neutrophils (Bld) [#/Vol] 3.29 x10*3/uL Normal 1.20-7.70 [facility] Comment on above: Result Comment: Perc ent differential counts (%) should be interpreted in the context of the absolute cell counts (cells/uL). Performed By: #### 5 0023-1 #### JOLENE Cantu ([id number]) [facility] ([facility]) [address] [place] [address] 38915 Neutrophils/100 WBC (Bld) 50.6 % Normal 40.0-80.0 [facility] Comment on above: Performed By: #### 5 0023-1 #### JOLENE Cantu ([id number]) [facility] ([facility]) [address] [place] [address] 75818 Nucleated RBC/100 WBC (Bld) [Ratio] 0.0 /100 WBCs Normal 0.0-0.0 [facility] Comment on above: Performed By: #### 5 0023-1 #### JOLENE Cantu ([id number]) [facility] ([facility]) [address] [place] [address] Platelets (Bld) [#/Vol] 295 x10*3/uL Normal 150-450 [facility] Comment on above: Performed By: #### 5 0023-1 #### JOLENE Cantu ([id number]) [facility] ([facility]) [address] [place] [address] 74516 RBC (Bld) [#/Vol] 4.09 x10*6/uL Normal 4.00-5.20 [facility] Comment on above: Performed By: #### 5 0023-1 #### JOLENE Cantu ([id number]) [facility] ([facility]) [address] [place] [address] 34118 WBC (Bld) [#/Vol] 6.5 x10*3/uL Normal 4.4-11.3 [facility] Comment on above: Performed By: #### 5 0023-1 #### JOLENE Cantu ([id number]) [facility] ([facility]) [address] [place] [address] 74505 Comprehensive metabolic 2000 panelon 12-09-2023 Albumin BCP dye [Mass/Vol] 4.0 g/dL Normal 3.4-5.0 [facility] Comment on above: Performed By: #### 5 0023-1 #### JOLENE Cantu ([id number]) [facility] ([facility]) [address] [place] [address] ALP [Catalytic activity/Vol] 87 U/L Normal 33-110 [facility] Comment on above: Performed By: #### 5 0023-1 #### JOLENE Cantu ([id number]) [facility] ([facility]) [address] [place] [address] ALT With P-5'-P [Catalytic activity/Vol] 24 U/L Normal 7-45 [facility] Comment on above: Result Comment: Katia ents treated with Sulfasalazine may generate falsely decreased results for ALT. Performed By: #### 5 0023-1 #### JOLENE Cantu ([id number]) [facility] ([facility]) [address] [place] [address] Anion gap [Moles/Vol] 14 mmol/L Normal 10-20 [facility] Comment on above: Performed By: #### 5 0023-1 #### JOLENE Cantu ([id number]) [facility] ([facility]) [address] [place] [address] AST With P-5'-P [Catalytic activity/Vol] 25 U/L Normal 9-39 [facility] Comment on above: Performed By: #### 5 0023-1 #### JOLENE Cantu ([id number]) [facility] ([facility]) [address] [place] [address] Bilirubin [Mass/Vol] 0.3 mg/dL Normal 0.0-1.2 [facility] Comment on above: Performed By: #### 5 0023-1 #### JOLENE Cantu ([id number]) [facility] ([facility]) [address] [place] [address] Calcium [Mass/Vol] 8.7 mg/dL Normal 8.6-10.6 [facility] Comment on above: Performed By: #### 5 0023-1 #### JOLENE Cantu ([id number]) [facility] ([facility]) [address] [place] [address] Chloride [Moles/Vol] 105 mmol/L Normal 98-107 [facility] Comment on above: Performed By: #### 5 0023-1 #### JOLENE Cantu ([id number]) [facility] ([facility]) [address] [place] [address] CO2 [Moles/Vol] 25 mmol/L Normal 21-32 [facility] Comment on above: Performed By: #### 5 0023-1 #### JOLENE Cantu ([id number]) [facility] ([facility]) [address] [place] [address] Creatinine [Mass/Vol] 0.82 mg/dL Normal 0.50-1.05 [facility] Comment on above: Performed By: #### 5 0023-1 #### JOLENE Cantu ([id number]) [facility] ([facility]) [address] [place] [address] Glomerular filtration rate/1.73 sq M.predicted 89 mL/min/1.73m*2 Normal >60 [facility] Comment on above: Result Comment: Calc ulations of estimated GFR are performed using the 2020 CKD-EPI Study Refit equation without the race variable for the IDMS-Traceable creatinine methods. https://jasn.asnjournals.org/content/early//ASN.60119 46024 Performed By: #### 5 0023-1 #### JOLENE Cantu ([id number]) [facility] ([facility]) [address] [place] [address] 51496 Glucose [Mass/Vol] 103 mg/dL High 74-99 [facility] Comment on above: Performed By: #### 5 0023-1 #### JOLENE Cantu ([id number]) [facility] ([facility]) [address] [place] [address] 98276 Potassium [Moles/Vol] 3.5 mmol/L Normal 3.5-5.3 [facility] Comment on above: Performed By: #### 5 0023-1 #### JOLENE RONQUILLO L ([id number]) [facility] ([facility]) [address] [place] [address] Protein [Mass/Vol] 7.1 g/dL Normal 6.4-8.2 [facility] Comment on above: Performed By: #### 5 0023-1 #### JOLENE RONQUILLO L ([id number]) [facility] ([facility]) [address] [place] [address] 20660 Sodium [Moles/Vol] 140 mmol/L Normal 136-145 [facility] Comment on above: Performed By: #### 5 0023-1 #### JOLENE Cantu ([id number]) [facility] ([facility]) [address] [place] [address] Urea nitrogen [Mass/Vol] 9 mg/dL Normal 6-23 [facility] Comment on above: Performed By: #### 5 0023-1 #### JOLENE RONQUILLO L ([id number]) [facility] ([facility]) [address] [place] [address] ECG 12-LEADon 12-09-2023 ECG 12-LEAD Ventricular Rate 70 Atrial Rate 70 P-R Interval 128 QRS Duration 86 Q-T Interval 434 QTC Calculation(Bazett) 468 P Orient 47 R Orient 35 T Orient 39 QRS Count 11 Q Onset 217 P Onset 153 P Offset 205 T Offset 434 QTC Fredericia 457 Diagnosis Normal sinus rhythm Low voltage QRS Borderline ECG When compared with ECG of 07-DEC-2023 17:07, No significant change was found See ED provider note for full interpretation and clinical correlation Confirmed by Germaine Diaz ([id number]) on 12/13/2023 5:09:16 PM Normal [facility] Troponin I.cardiac panelon 0 12-09-2023 Tropinin I.cardiac panel High sensitivity method <3 Normal 0-34 [facility] Comment on above: Order Comment: Repor table Range: 15-100,000,000 IU/mL. The javier HCV is an in vitro nucleic acid amplification test for both the detection and quantitation of hepatitis C virus (HCV) RNA, in human EDTA plasma or serum, of HCV antibody positive or HCV-infected individuals on the javier Medbox0/8800 Systems. Dual probes are used to detect [...] the Molecular Diagnostic Laboratory, Department of Pathology, [facility]. Performed By: #### 5 0023-1 #### JOLENE Cantu ([id number]) [facility] ([facility]) [address] [place] [address] XR ELBOW RIGHT 1-2 VIEWSon 0 12-09-2023 XR ELBOW RIGHT 1-2 VIEWS Interpreted By: Ernestina Bond, STUDY: Right elbow, two views. INDICATION: Signs/Symptoms:Fall with injury. COMPARISON: 09/16/2023. ACCESSION NUMBER(S): [id number] ORDERING CLINICIAN: JAROCHO TRONCOSO FINDINGS: No acute fracture or malalignment. No elbow joint effusion or abnormal fat pad elevation. No significant degenerative changes. Soft tissues are unremarkable. IMPRESSION: 1. Unremarkable radiographic evaluation of the right elbow. MACRO: None. Signed by: Ernestina Bond 12/09/2023 2:36 PM Dictation workstation: [id number] [facility] XR HAND RIGHT 3+ VIEWSon XR HAND RIGHT 3+ VIEWS Interpreted By: Ernestina Bond, STUDY: Right hand, 3 views. INDICATION: Signs/Symptoms:Fall with right thumb/hand injury. COMPARISON: None. ACCESSION NUMBER(S): [id number] ORDERING CLINICIAN: JAROCHO TRONCOSO FINDINGS: No acute fracture or malalignment. 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 Small chronic Heterotopic ossification noted in the soft tissues adjacent to the trapezium. Soft tissues are within normal limits. IMPRESSION: 1. 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 No acute fracture or malalignment MACRO: None. Signed by: Ernestina Bond 12/09/2023 2:36 PM Dictation workstation: [id number] [facility] XR SHOULDER RIGHT 2+ VIEWSon 12-09-2023 XR SHOULDER RIGHT 2+ VIEWS Interpreted By: Ernestina Bond, STUDY: Right shoulder, five views. INDICATION: Signs/Symptoms:Injury to right shoulder. COMPARISON: Chest radiograph 12/07/2023. ACCESSION NUMBER(S): [id number] ORDERING CLINICIAN: JAROCHO TRONCOSO FINDINGS: No acute fracture or malalignment. No significant degenerative changes. Soft tissues are unremarkable. Remote healed fracture deformity of the mid right clavicle noted with mild malunion. IMPRESSION: 1. Unremarkable right shoulder radiographs. 2. Remote healed fracture deformity of the mid right clavicle with mild malunion. MACRO: None. Signed by: Ernestina Bond 12/09/2023 2:34 PM Dictation workstation: [id number] [facility] Bilirubin.glucuronidated+Kenan irubin.albumin boundon 12-07-2023 Bilirubin.direct [Mass/Vol] 0.1 mg/dL Normal 0.0-0.3 [facility] Comment on above: Performed By: #### 5 0023-1 #### JOLENE Cantu ([id number]) [facility] ([facility]) [address] [place] [address] CBC W Auto Differential pane l (Bld)on 12-07-2023 Basophils (Bld) [#/Vol] 0.01 x10*3/uL Normal 0.00-0.10 [facility] Comment on above: Performed By: #### 5 0023-1 #### JOLENE Cantu ([id number]) [facility] ([facility]) [address] [place] [address] Basophils/100 WBC (Bld) 0.1 % Normal 0.0-2.0 [facility] Comment on above: Performed By: #### 5 0023-1 #### JOLENE Cantu ([id number]) [facility] ([facility]) [address] [place] [address] 35208 Eosinophils (Bld) [#/Vol] 0.27 x10*3/uL Normal 0.00-0.70 [facility] Comment on above: Performed By: #### 5 0023-1 #### JOLENE Cantu ([id number]) [facility] ([facility]) [address] [place] [address] 57725 Eosinophils/100 WBC (Bld) 3.8 % Normal 0.0-6.0 [facility] Comment on above: Performed By: #### 5 0023-1 #### JOLENE Cantu ([id number]) [facility] ([facility]) [address] [place] [address] 96100 Erythrocyte distribution width (RBC) [Ratio] 13.0 % Normal 11.5-14.5 [facility] Comment on above: Performed By: #### 5 0023-1 #### JOLENE Cantu ([id number]) [facility] ([facility]) [address] [place] [address] 90463 Hematocrit (Bld) [Volume fraction] 41.4 % Normal 36.0-46.0 [facility] Comment on above: Performed By: #### 5 0023-1 #### JOLENE Cantu ([id number]) [facility] ([facility]) [address] [place] [address] 71555 Hemoglobin (Bld) [Mass/Vol] 13.4 g/dL Normal 12.0-16.0 [facility] Comment on above: Performed By: #### 5 0023-1 #### JOLENE Cantu ([id number]) [facility] ([facility]) [address] [place] [address] 89805 Immature granulocytes (Bld) [#/Vol] 0.02 x10*3/uL Normal 0.00-0.70 [facility] Comment on above: Performed By: #### 5 0023-1 #### JOLENE Cantu ([id number]) [facility] ([facility]) [address] [place] [address] 70100 Immature granulocytes/100 WBC (Bld) 0.3 % Normal 0.0-0.9 [facility] Comment on above: Result Comment: Aspen ture Granulocyte Count (IG) includes promyelocytes, myelocytes and metamyelocytes but does not include bands. Percent differential counts (%) should be interpreted in the context of the absolute cell counts (cells/UL). Performed By: #### 5 0023-1 #### JOLENE Cantu ([id number]) [facility] ([facility]) [address] [place] [address] 46853 Lymphocytes (Bld) [#/Vol] 1.45 x10*3/uL Normal 1.20-4.80 [facility] Comment on above: Performed By: #### 5 0023-1 #### JOLENE Cantu ([id number]) [facility] ([facility]) [address] [place] [address] 34023 Lymphocytes/100 WBC (Bld) 20.3 % Normal 13.0-44.0 [facility] Comment on above: Performed By: #### 5 0023-1 #### JOLENE Cantu ([id number]) [facility] ([facility]) [address] [place] [address] 90033 MCH (RBC) [Entitic mass] 30.6 pg Normal 26.0-34.0 [facility] Comment on above: Performed By: #### 5 0023-1 #### JOLENE Cantu ([id number]) [facility] ([facility]) [address] [place] [address] 40503 MCHC (RBC) [Mass/Vol] 32.4 g/dL Normal 32.0-36.0 [facility] Comment on above: Performed By: #### 5 0023-1 #### JOLENE Cantu ([id number]) [facility] ([facility]) [address] [place] [address] MCV (RBC) [Entitic vol] 95 fL Normal 80-100 [facility] Comment on above: Performed By: #### 5 0023-1 #### JOLENE Cantu ([id number]) [facility] ([facility]) [address] [place] [address] 83011 Monocytes (Bld) [#/Vol] 0.52 x10*3/uL Normal 0.10-1.00 [facility] Comment on above: Performed By: #### 5 0023-1 #### JOLENE Cantu ([id number]) [facility] ([facility]) [address] [place] [address] 76493 Monocytes/100 WBC (Bld) 7.3 % Normal 2.0-10.0 [facility] Comment on above: Performed By: #### 5 0023-1 #### JOLENE Cantu ([id number]) [facility] ([facility]) [address] [place] [address] 80756 Neutrophils (Bld) [#/Vol] 4.87 x10*3/uL Normal 1.20-7.70 [facility] Comment on above: Result Comment: Perc ent differential counts (%) should be interpreted in the context of the absolute cell counts (cells/uL). Performed By: #### 5 0023-1 #### JOLENE Cantu ([id number]) [facility] ([facility]) [address] [place] [address] Neutrophils/100 WBC (Bld) 68.2 % Normal 40.0-80.0 [facility] Comment on above: Performed By: #### 5 0023-1 #### JOLENE Cantu ([id number]) [facility] ([facility]) [address] [place] [address] 28936 Nucleated RBC/100 WBC (Bld) [Ratio] 0.0 /100 WBCs Normal 0.0-0.0 [facility] Comment on above: Performed By: #### 5 0023-1 #### JOLENE Cantu ([id number]) [facility] ([facility]) [address] [place] [address] Platelets (Bld) [#/Vol] 341 x10*3/uL Normal 150-450 [facility] Comment on above: Performed By: #### 5 0023-1 #### JOLENE RONQUILLO L ([id number]) [facility] ([facility]) [address] [place] [address] RBC (Bld) [#/Vol] 4.38 x10*6/uL Normal 4.00-5.20 [facility] Comment on above: Performed By: #### 5 0023-1 #### JOLENE CASTROER L ([id number]) [facility] ([facility]) [address] [place] [address] WBC (Bld) [#/Vol] 7.1 x10*3/uL Normal 4.4-11.3 [facility] Comment on above: Performed By: #### 5 0023-1 #### JOLENE WELSHBEATAALEXUSER L ([id number]) [facility] ([facility]) [address] [place] [address] CT ABDOMEN PELVIS W IV CONTR William 12-07-2023 CT ABDOMEN PELVIS W IV CONTRAST STUDY: CT Abdomen and Pelvis with IV Contrast; CT Lumbar Spine Without IV Contrast; 12/07/2023 at 6:06 PM INDICATION: Left sided abdominal pain and guarding. Recent post op fluid collection on lumbar spine MRI. Evaluate for diverticulitis. COMPARISON: CT lumbar spine 12/07/2023, MRI lumbar spine 12/06/2023, CT lumbar spine 11/13/2023, CT lumbar spine , XR abdomen 10/31/2023. ACCESSION NUMBER(S): [id number], [id number] ORDERING CLINICIAN: DOUG ALFONSO TECHNIQUE: CT of the abdomen and pelvis was performed. Contiguous axial images were obtained at 3 mm slice thickness through the abdomen and pelvis. Coronal and sagittal reconstructions at 3 mm slice thickness were performed. Omnipaque 350 80 mL was administered intravenously. CT of the lumbar spine was performed without intravenous or intrathecal contrast. Sagittal and coronal reconstructions were generated. FINDINGS: LOWER CHEST: No cardiomegaly. No pericardial effusion. Lung bases are clear. ABDOMEN: LIVER: No hepatomegaly. Smooth surface contour. There is fatty infiltration of the liver. BILE DUCTS: No intrahepatic or extrahepatic biliary ductal dilatation. GALLBLADDER: The gallbladder is absent. STOMACH: No abnormalities identified. PANCREAS: No masses or ductal dilatation. SPLEEN: No splenomegaly or focal splenic lesion. ADRENAL GLANDS: No thickening or nodules. KIDNEYS AND URETERS: Kidneys are normal in size and location. No renal or ureteral calculi. PELVIS: BLADDER: No abnormalities identified. REPRODUCTIVE ORGANS: No abnormalities identified. BOWEL: No abnormalities identified. Appendix is normal. VESSELS: No abnormalities identified. Abdominal aorta is normal in caliber. PERITONEUM/RETROPERITON EUM/LYMPH NODES: No free fluid. No pneumoperitoneum. No lymphadenopathy. ABDOMINAL WALL: No abnormalities identified. SOFT TISSUES: No abnormalities identified. BONES: No acute fracture or aggressive osseous lesion. FINDINGS: LUMBAR SPINE: The alignment is anatomic. There is no fracture or traumatic subluxation. Again noted is some subcutaneous edema posterior to the midline lumbar spine overall stable in appearance compared to prior exam. No underlying fluid collection or abscess. The vertebral body heights are well maintained. Moderate to severe disc space narrowing at L4-5 and L5-S1. No significant central canal stenosis is demonstrated. Moderate to severe bilateral neuroforaminal narrowing at L4-5 and L5-S1. The hyperdensity in the anterior aspect of the spinal canal at L4-5 seen on prior exam is less well visualized on the current study The paravertebral soft tissues are within normal limits. The visualized abdomen is unremarkable. IMPRESSION: 1. No acute process. 2. Again noted is some subcutaneous edema posterior to the midline lumbar spine overall stable in appearance compared to prior exam. No underlying fluid collection or abscess. 3. The hyperdensity in the anterior aspect of the spinal canal at L4-5 seen on prior exam is less well visualized on the current study. 4. Hepatic steatosis. Signed by Taj Chandler MD [facility] CT LUMBAR SPINE WO IV CONTRA SToradha 12-07-2023 CT LUMBAR SPINE WO IV CONTRAST STUDY: CT Abdomen and Pelvis with IV Contrast; CT Lumbar Spine Without IV Contrast; 12/07/2023 at 6:06 PM INDICATION: Left sided abdominal pain and guarding. Recent post op fluid collection on lumbar spine MRI. Evaluate for diverticulitis. COMPARISON: CT lumbar spine 12/07/2023, MRI lumbar spine 12/06/2023, CT lumbar spine 11/13/2023, CT lumbar spine , XR abdomen 10/31/2023. ACCESSION NUMBER(S): [id number], [id number] ORDERING CLINICIAN: DOUG ALFONSO TECHNIQUE: CT of the abdomen and pelvis was performed. Contiguous axial images were obtained at 3 mm slice thickness through the abdomen and pelvis. Coronal and sagittal reconstructions at 3 mm slice thickness were performed. Omnipaque 350 80 mL was administered intravenously. CT of the lumbar spine was performed without intravenous or intrathecal contrast. Sagittal and coronal reconstructions were generated. FINDINGS: LOWER CHEST: No cardiomegaly. No pericardial effusion. Lung bases are clear. ABDOMEN: LIVER: No hepatomegaly. Smooth surface contour. There is fatty infiltration of the liver. BILE DUCTS: No intrahepatic or extrahepatic biliary ductal dilatation. GALLBLADDER: The gallbladder is absent. STOMACH: No abnormalities identified. PANCREAS: No masses or ductal dilatation. SPLEEN: No splenomegaly or focal splenic lesion. ADRENAL GLANDS: No thickening or nodules. KIDNEYS AND URETERS: Kidneys are normal in size and location. No renal or ureteral calculi. PELVIS: BLADDER: No abnormalities identified. REPRODUCTIVE ORGANS: No abnormalities identified. BOWEL: No abnormalities identified. Appendix is normal. VESSELS: No abnormalities identified. Abdominal aorta is normal in caliber. PERITONEUM/RETROPERITON EUM/LYMPH NODES: No free fluid. No pneumoperitoneum. No lymphadenopathy. ABDOMINAL WALL: No abnormalities identified. SOFT TISSUES: No abnormalities identified. BONES: No acute fracture or aggressive osseous lesion. FINDINGS: LUMBAR SPINE: The alignment is anatomic. There is no fracture or traumatic subluxation. Again noted is some subcutaneous edema posterior to the midline lumbar spine overall stable in appearance compared to prior exam. No underlying fluid collection or abscess. The vertebral body heights are well maintained. Moderate to severe disc space narrowing at L4-5 and L5-S1. No significant central canal stenosis is demonstrated. Moderate to severe bilateral neuroforaminal narrowing at L4-5 and L5-S1. The hyperdensity in the anterior aspect of the spinal canal at L4-5 seen on prior exam is less well visualized on the current study The paravertebral soft tissues are within normal limits. The visualized abdomen is unremarkable. IMPRESSION: 1. No acute process. 2. Again noted is some subcutaneous edema posterior to the midline lumbar spine overall stable in appearance compared to prior exam. No underlying fluid collection or abscess. 3. The hyperdensity in the anterior aspect of the spinal canal at L4-5 seen on prior exam is less well visualized on the current study. 4. Hepatic steatosis. Signed by Taj Chandler MD Normal [facility] Choriogonadotropin.beta subu sahraon 12-07-2023 HCG.beta subunit Qn m[IU]/mL Normal <5 [facility] Comment on above: Order Comment: Repor table Range: 15-100,000,000 IU/mL. The javier HCV is an in vitro nucleic acid amplification test for both the detection and quantitation of hepatitis C virus (HCV) RNA, in human EDTA plasma or serum, of HCV antibody positive or HCV-infected individuals on the javier Medbox0/8800 Systems. Dual probes are used to detect [...] the Molecular Diagnostic Laboratory, Department of Pathology, [facility]. Performed By: #### 5 0023-1 #### JOLENE Cantu ([id number]) [facility] ([facility]) [address] [place] [address] Comprehensive metabolic 2000 panelon 12-07-2023 Albumin BCP dye [Mass/Vol] 4.1 g/dL Normal 3.4-5.0 [facility] Comment on above: Performed By: #### 5 0023-1 #### JOLENE Cantu ([id number]) [facility] ([facility]) [id number] [place] [address] ALP [Catalytic activity/Vol] 76 U/L Normal 33-110 [facility] Comment on above: Performed By: #### 5 0023-1 #### JOLENE Cantu ([id number]) [facility] ([facility]) [address] [place] [address] ALT With P-5'-P [Catalytic activity/Vol] 32 U/L Normal 7-45 [facility] Comment on above: Result Comment: Katia ents treated with Sulfasalazine may generate falsely decreased results for ALT. Performed By: #### 5 0023-1 #### JOLENE Cantu ([id number]) [facility] ([facility]) [address] [place] [address] Anion gap [Moles/Vol] 12 mmol/L Normal 10-20 [facility] Comment on above: Performed By: #### 5 0023-1 #### JOLENE Cantu ([id number]) [facility] ([facility]) [address] [place] [address]44 AST With P-5'-P [Catalytic activity/Vol] 28 U/L Normal 9-39 [facility] Comment on above: Performed By: #### 5 0023-1 #### JOLENE Cantu ([id number]) [facility] ([facility]) [address] [place] [address] Bilirubin [Mass/Vol] 0.4 mg/dL Normal 0.0-1.2 [facility] Comment on above: Performed By: #### 5 0023-1 #### JOLENE RONQUILLO L ([id number]) [facility] ([facility]) [address] [place] [address] Calcium [Mass/Vol] 8.8 mg/dL Normal 8.6-10.6 [facility] Comment on above: Performed By: #### 5 0023-1 #### JOLENE RONQUILLO L ([id number]) [facility] ([facility]) [address] [place] [address] Chloride [Moles/Vol] 104 mmol/L Normal 98-107 [facility] Comment on above: Performed By: #### 5 0023-1 #### JOLENE RONQUILLO L ([id number]) [facility] ([facility]) [address] [place] [address] CO2 [Moles/Vol] 27 mmol/L Normal 21-32 [facility] Comment on above: Performed By: #### 5 0023-1 #### JOLENE RONQUILLO L ([id number]) [facility] ([facility]) [address] [place] [address] Creatinine [Mass/Vol] 0.81 mg/dL Normal 0.50-1.05 [facility] Comment on above: Performed By: #### 5 0023-1 #### JOLENE RONQUILLO L ([id number]) [facility] ([facility]) [address] [place] [address] GFR/1.73 sq M.predicted MDRD (S/P/Bld) [Vol rate/Area] mL/min/{1.73_m2} Normal >60 [facility] Comment on above: Result Comment: Calc ulations of estimated GFR are performed using the 2020 CKD-EPI Study Refit equation without the race variable for the IDMS-Traceable creatinine methods. https://jasn.asnjournals.org/content//ASN.06405 40544 Performed By: #### 5 0023-1 #### JOLENE RONQUILLO L ([id number]) [facility] ([facility]) [address] [place] [address] Glucose [Mass/Vol] 98 mg/dL Normal 74-99 [facility] Comment on above: Performed By: #### 5 0023-1 #### JOLENE Cantu ([id number]) [facility] ([facility]) [address] [place] [address] Potassium [Moles/Vol] 3.6 mmol/L Normal 3.5-5.3 [facility] Comment on above: Performed By: #### 5 0023-1 #### JOLENE Cantu ([id number]) [facility] ([facility]) [address] [place] [address] Protein [Mass/Vol] 7.1 g/dL Normal 6.4-8.2 [facility] Comment on above: Performed By: #### 5 0023-1 #### JOLENE Cantu ([id number]) [facility] ([facility]) [address] [place] [address] Sodium [Moles/Vol] 139 mmol/L Normal 136-145 [facility] Comment on above: Performed By: #### 5 0023-1 #### JOLENE Cantu ([id number]) [facility] ([facility]) [address] [place] [address] Urea nitrogen [Mass/Vol] 12 mg/dL Normal 6-23 [facility] Comment on above: Performed By: #### 5 0023-1 #### JOLENE Cantu ([id number]) [facility] ([facility]) [id number] [place] [address] ECG 12-LEADon 12-07-2023 ECG 12-LEAD Ventricular Rate 76 Atrial Rate 76 P-R Interval 140 QRS Duration 84 Q-T Interval 432 QTC Calculation(Bazett) 486 P Orient 60 R Orient 59 T Orient 61 QRS Count 13 Q Onset 217 P Onset 147 P Offset 205 T Offset 433 QTC Fredericia 467 Diagnosis Normal sinus rhythm Possible Left atrial enlargement Prolonged QT Abnormal ECG When compared with ECG of 06-DEC-2023 16:27, No significant change was found See ED provider note for full interpretation and clinical correlation Confirmed by Marquis Calderón ([id number]) on 12/07/2023 9:49:06 PM Normal [facility] Triacylglycerol lipaseon Lipase [Catalytic activity/Vol] 30 U/L Normal 9-82 [facility] Comment on above: Order Comment: Repor table Range: 15-100,000,000 IU/mL. The javier HCV is an in vitro nucleic acid amplification test for both the detection and quantitation of hepatitis C virus (HCV) RNA, in human EDTA plasma or serum, of HCV antibody positive or HCV-infected individuals on the javier Medbox0/8800 Systems. Dual probes are used to detect [...] the Molecular Diagnostic Laboratory, Department of Pathology, [facility]. Performed By: #### 5 0023-1 #### JOLENE Cantu ([id number]) [facility] ([facility]) [address] [place] [address] Troponin I.cardiac panelon 0 12-07-2023 Tropinin I.cardiac panel High sensitivity method <3 Normal 0-34 [facility] Comment on above: Order Comment: Repor table Range: 15-100,000,000 IU/mL. The javier HCV is an in vitro nucleic acid amplification test for both the detection and quantitation of hepatitis C virus (HCV) RNA, in human EDTA plasma or serum, of HCV antibody positive or HCV-infected individuals on the javier Medbox0/8800 Systems. Dual probes are used to detect [...] the Molecular Diagnostic Laboratory, Department of Pathology, [facility]. Performed By: #### 5 0023-1 #### JOLENE Cantu ([id number]) [facility] ([facility]) [address] [place] [address] XR CHEST 2 VIEWSon 4 XR CHEST 2 VIEWS STUDY: Chest Radiographs; 12/07/2023 4:30 PM INDICATION: Shortness of breath. COMPARISON: XR chest 11/13/2023. ACCESSION NUMBER(S): [id number] ORDERING CLINICIAN: DOUG ALFONSO TECHNIQUE: Frontal and lateral chest. FINDINGS: CARDIOMEDIASTINAL SILHOUETTE: Cardiomediastinal silhouette is normal in size and configuration. LUNGS: Lungs are clear. ABDOMEN: No remarkable upper abdominal findings. BONES: No acute osseous changes. IMPRESSION: No radiographic evidence of acute cardiopulmonary disease. Signed by Chandana Andersen MD [facility] ED Note-Physicianon 12-06-19 ED Note-Physician ED Note-Physician Basic Information Time Seen: Balbina Bryant M.D. 12/05/2023 19:02 Chief Complaint patient presents with surgical incision drainage and dehiscence that happened yesterday. denies fevers but experiencing nausea and chills. back surgery at [facility] 10/13 History of Present Illness The patient is a 48-year-old female who presented to the emergency room for surgical wound evaluation. The patient states that the wound is dehisced. The patient states she had back surgery on October 13. The patient has chronic back pain and that is being the same. The patient states that she noticed some drainage from the wound. She reports some chills but no fever. She denies any other associated symptoms. Review of Systems Additional ROS info: Except as noted in the above Review of Systems and in the History of Present Illness all other systems have been reviewed and are negative or noncontributory. Physical Exam Vitals & Measurements T: 36.7 ?C(Oral) HR: 94(Peripheral) RR: 18 BP: 154/94 SpO2: 97% HT: 160 cm WT: 115.2 kg BMI: 45 General: alert, no acute distress Skin: warm, dry, Head: no trauma, normocephalic Neck: Trachea midline, Eye: normal conjunctiva, sclera clear, Cardiovascular: regular rate and rhythm, Respiratory: Lungs CTA, respirations non labored, breath sounds equal, Gastrointestinal: soft, non distended, no tenderness, no guarding, Back: The surgical incision has an wound from old dehiscence. There is no any new opening. No drainage appreciated. No redness around the wound. No swelling. Extremities: no deformity, no trauma Neurological: Alert and oriented, motor strength equal & normal bilaterally, sensation equal & normal bilaterally, speech normal, no focal neuro deficits Psychiatric: cooperative, affect appropriate for age, Medical Decision Making MEDICAL DECISION MAKING Number and Complexity of Problems Differential Diagnosis: [] [facility] Data External documents reviewed: [] My EKG interpretation: [] My CT interpretation: [] My X-ray interpretation: [] My Ultrasound interpretation: [] Decision rules/scores evaluated: [] Discussed with: [] Treatment and Disposition ED Course: The patient presented for chronic back pain and wound checkup. She does have an old wound dehiscence from surgery in September. I do not appreciate any signs of infection. The patient was given Toradol for chronic back pain. Will discharge patient home follow-up with primary care. She is instructed to return to the emergency room if she develops any drainage from the wound, redness, fever or any new symptoms. Shared decision making: [] Code status: [] Assessment/Plan 1. Visit for wound check (Z51.89: Encounter for other specified aftercare) 2. Chronic back pain (M54.9: Dorsalgia, unspecified) Other chronic pain (G89.29: Other chronic pain) Orders: ketorolac, 60 mg = 2 mL, Injection, IntraMuscular, Once, Stop date 12/05/23 19:12:00 EDT, STAT, Start date 12/05/23 19:12:00 EDT, 12/05/23 19:12:00 EDT Disposition Plan Patient Discharge Condition Stable Discharge Disposition Discharge home Discharge Prescription List Prescriptions No active prescription medications Follow-up With When Contact Information Cheyanne Rosas In 3 days 12/08/2023 EDT [address], [facility] A [address] [address]- [facility] (1) Additional Instructions: Make sure to follow-up with your back surgeon as discussed. Return to the emergency room if there is drainage from the wound, redness around the edge of the wound, fever or any new symptoms. Patient Education Chronic Back Pain Wound Care, Adult Problem List/Past Medical History Ongoing Arthritis of first carpometacarpal joint of right hand Bipolar disorder Chronic back pain Chronic hepatitis C Closed fracture of trapezoidal bone of wrist COVID-19 Diarrhea Disease of liver Drug therapy finding Elevated blood pressure reading Encounter for screening mammogram for breast cancer Fatigue Migraine Screening for cardiovascular condition Smoker Smoker Tendonitis of right wrist Weight gain Wellness examination Historical Bipolar Continuous opioid dependence Hepatitis C Liver disease Migraines Procedure/Surgical History Hysterectomy (2010), History of cholecystectomy, Hysterectomy, lap x 7, Tonillectomy with adenoids. Medications Inpatient ketorolac 60 mg/2 mL Injection, 60 mg= 2 mL, IntraMuscular, Once Home cyclobenzaprine 10 mg Tab, 10 mg= 1 tab(s), Oral, TID, PRN diflunisal 500 mg Tab, 500 mg= 1 tab(s), Oral, q12hr FLUoxetine 60 mg oral tablet, 60 mg= 1 tab(s), Oral, Daily, 1 refills ibuprofen 800 mg Tab, 800 mg= 1 tab(s), Oral, TID Lidoderm 5% Patch, 1 patch(es), Topical, Daily naproxen 500 mg Tab, 500 mg= 1 tab(s), Oral, BID naproxen 500 mg Tab, 500 mg= 1 tab(s), Oral, BID Reglan 10 mg Tab, 10 mg= 1 tab(s), Oral, q6hr Voltaren Gel 1% Gel, 1 kennedi, Topi (more content not included)... Normal [facility] Comment on above: Result Comment: Elec tronically Signed By: Annette Watkins, Balbina H\.br\Date and Time Signed: 12/06/23 02:02 EDT MR LUMBAR SPINE W AND WO IV CONTRASTon 12-06-2023 MR LUMBAR SPINE W AND WO IV CONTRAST Interpreted By: Oscar Sabillon, Carly Kaba STUDY: MR LUMBAR SPINE W AND WO IV CONTRAST; 12/06/2023 9:50 pm INDICATION: Signs/Symptoms:post op wound complication. COMPARISON: MR lumbar spine 11/13/2023. ACCESSION NUMBER(S): [id number] ORDERING CLINICIAN: MARQUIS CALDERÓN TECHNIQUE: Sagittal T1, T2, STIR, axial T1 and T2 weighted images of the lumbar spine were acquired. Postcontrast T1 images were obtained after the administration of 20 mL of intravenous Dotarem. FINDINGS: This report assumes 5 non-rib bearing lumbar vertebral bodies. The lowest intervertebral disc will be labeled L5-S1. Alignment: Mild degenerative retrolisthesis of L4 on L5. The vertebral alignment is otherwise maintained. Vertebrae/Intervertebra l Discs: The vertebral bodies demonstrate expected height. Similar loss of disc height at L4-L5 with associated type 2 endplate Modic change. Stable disc desiccation at L5-S1 and L4-L5. Conus: The lower thoracic cord appears unremarkable. The conus terminates at L1-L2. T12-L1: Mild ligamentum flavum hypertrophy. 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 Dorsal effacement of the thecal sac, without significant central canal stenosis. No right-sided neural foraminal stenosis. L1-2: No disc bulge or herniation. Moderate ligamentum flavum hypertrophy. Mild bilateral facet arthropathy. Dorsal effacement of the thecal sac, without significant central canal stenosis. No significant neural foraminal stenosis. L2-3: No disc bulge or herniation. Mild bilateral facet arthropathy. Dorsal effacement of the thecal sac, without significant central canal stenosis. No significant neural foraminal stenosis. L3-4: Mild disc bulge. Moderate facet arthropathy and epidural dorsal fat without significant canal or foraminal stenosis. L4-5: Disc bulge with superimposed left subarticular disc protrusion. Prominent ventral epidural fat. Moderate ligamentum flavum hypertrophy. Moderate bilateral facet arthropathy. This results in moderate central canal stenosis and moderate to severe left subarticular stenosis, similar to prior. Jxyb-as-gclorupd cfshj-prlhwej-qgjq-left neural foraminal stenosis. L5-S1: Small disc bulge and right greater than left facet arthropathy without significant central canal or left foraminal stenosis. There is mild to moderate right foraminal stenosis. The previously described focal fluid collection at the level of L3 is almost completely resolved with residual 1.3 x 0.8 x 0.9 cm fluid collection on axial image 31 and sagittal image 21 which demonstrates enhancement.. There is however, superficial soft tissue edema/enhancement extending to the deep posterior paraspinal soft tissues centered at the level of L2. There is enhancement of the overlying skin in this region. There are multiple foci of susceptibility artifact, likely representing air. The foci of gas extent to the dorsal midline skin surface at the level of L2-L3 suggestive of a surgical wound or sinus tract. No direct evidence of a formed/loculated fluid collection. IMPRESSION: 1. Previously described focal fluid collection of the level of L3 has almost completely resolved with residual thick rim enhancing fluid collection measuring 1.3 x 0.8 x 0.9 cm, possibly representing granulation tissue. There is however, enhancement/edema of the skin overlying the paraspinal soft tissues from the levels of L1 through L3. Deep to this area, there is ill-defined edema and enhancement extending within the deep subcutaneous fat extending to the superficial fascia. There are foci of gas extending from the midline dorsal fat to the skin surface at the level of L2-L3, which may represent a surgical wound versus sinus tract. These findings may represent cellulitis versus recent postsurgical change with granulation tissue. Clinical correlation recommended. 2. Stable degenerative changes, as described above. I personally reviewed the images/study and I agree with the findings as stated by Sesar Suarez MD. This study was interpreted at [facility], [place], [place] MACRO: None Signed by: Oscar Sabillon 12/07/2023 1:30 AM Dictation workstation: [id number] Normal [facility] ED Clinical Summaryon 2023 ED Clinical Summary ED Clinical Summary [place] [address] ED Clinical Summary Person Information Name: [facility]AD [facility] Age[facility] 48 Years : 1975 Sex: Female Language: Serbian PCP: Cheyanne Rincon Marital Status: Visit Id: Visit Reason: Chills; Nausea; Incision and drainage reevaluation; INCESION LEAKING Speciality: Acuity: 3 Enc Type: Emergency Med Service: Emergency Arrival: 12/05/2023 17:36:20 Discharge: 12/05/2023 19:39:26 LOS: 000 02:03 Checkin: 12/05/2023 17:36:20 Checkout: 12/05/2023 19:39:26 Dispo Type: Eloped EVENTS: Event Name Event Status Request Date/Time Start Date/Time Complete Date/Time Arrive Complete 12/05/2023 17:36:20 12/05/2023 17:36:20 12/05/2023 17:36:20 Document Home Meds Request 12/05/2023 17:36:20 Triage Complete 12/05/2023 17:36:20 12/05/2023 17:50:09 12/05/2023 17:50:09 Registration Complete 12/05/2023 17:40:39 12/05/2023 17:40:39 12/05/2023 17:40:39 Reg Complete Request 12/05/2023 17:40:39 Reg Bed Request Complete 12/05/2023 17:40:39 12/05/2023 17:40:39 12/05/2023 17:40:39 Bed Assign Complete 12/05/2023 17:43:28 12/05/2023 17:43:28 12/05/2023 17:43:28 Dr Exam Complete 12/05/2023 17:43:28 12/05/2023 19:02:52 12/05/2023 19:02:52 RN Exam Complete 12/05/2023 17:43:28 12/05/2023 18:24:44 12/05/2023 18:24:44 Registration Request 12/05/2023 19:02:52 Meds Admin Complete 12/05/2023 19:13:07 12/05/2023 19:38:30 Discharge Complete 12/05/2023 19:14:55 12/05/2023 19:40:10 12/05/2023 19:40:10 Transfer Complete 12/05/2023 19:40:10 12/05/2023 19:40:10 12/05/2023 19:40:10 ADDRESS: [address] [place] [id number] [facility] DOC NOTES: MEDICAL INFORMATION: Prescriptions Given: Medications to Continue with No Changes Other Medications cyclobenzaprine (cyclobenzaprine 10 mg Tab) 1 Tablets By Mouth 3 times a day as needed for spasm. Refills: 0. diclofenac topical (Voltaren Gel 1% Gel) 1 Application Topical 4 times a day as needed for pain. Refills: 0. diflunisal (diflunisal 500 mg Tab) 1 Tablets By Mouth every 12 hours. Refills: 0. fluoxetine (FLUoxetine 60 mg oral tablet) 1 Tablets By Mouth every day. Refills: 1. ibuprofen (ibuprofen 800 mg Tab) 1 Tablets By Mouth 3 times a day. Refills: 0. lidocaine topical (Lidoderm 5% Patch) 1 Patches Topical every day. apply 12 hours on and 12 hours off daily. Refills: 0. metoclopramide (Reglan 10 mg Tab) 1 Tablets By Mouth every 6 hours. Refills: 0. naproxen (naproxen 500 mg Tab) 1 Tablets By Mouth 2 times a day. Take one tab by mouth two times a day. Refills: 0. naproxen (naproxen 500 mg Tab) 1 Tablets By Mouth 2 times a day for 10 Days. Refills: 0. ondansetron (Zofran 4 mg Tab) 1 Tablets By Mouth every 6 hours as needed Nausea. Take one tab by mouth every six hours as needed for nausea. Refills: 0. PATIENT EDUCATION INFORMATION: Instructions: Chronic Back Pain; Wound Care, Adult Follow up: With: Address: When: Cheyanne Rosas [address] [place] [address] A, [place] [id number] Business (1) In 3 days 12/08/2023 Comments: Make sure to follow-up with your back surgeon as discussed. Return to the emergency room if there is drainage from the wound, redness around the edge of the wound, fever or any new symptoms. DIAGNOSIS: 1:Visit for wound check; 2:Chronic back pain; Other chronic pain Normal [facility] ED Patient Summaryon 024 ED Patient Summary ED Patient Summary [address] [address] Patient Discharge Instructions Person Information Name: JERAD TRACY Age: 48 Years Arrival Date: 12/05/2023 17:36:20 Discharge Diagnosis: 1:Visit for wound check; 2:Chronic back pain; Other chronic pain Primary Care Physician: Cheyanne Rincon Provider Information Primary Provider: Annette WatkinsBalbina [employer]:None The exam and treatment you received in the Emergency Department were for an urgent problem and are not intended as complete care. It is important that you follow up with a doctor, nurse practitioner, or physician?s per diem physical therapist assistant for ongoing care. If your symptoms become worse or you do not improve as expected and you are unable to reach your usual health care provider, you should return to the Emergency Department. We are available 24 hours a day. JERAD TRACY has been given the following list of patient education materials, prescriptions and follow-up instructions: Follow-up Instructions: With: Address: When: Cheyanne Rosas [address], [address], [place] [id number] [employer] (1Status4 In 3 days 12/08/2023 Comments: Make sure to follow-up with your back surgeon as discussed. Return to the emergency room if there is drainage from the wound, redness around the edge of the wound, fever or any new symptoms. In the event that this physician does not participate in your insurance network, please consult with your insurance company to find a nearby participating provider. Patient Education Materials: Chronic Back Pain; Wound Care, Adult A MESSAGE TO ALL PATIENTS REGARDING OPIOIDS PRESCRIPTION OPIOIDS: WHAT YOU NEED TO KNOW Prescription opioids can be used to help relieve uihtjano-km-jcqsqw pain and are often prescribed following a surgery or injury, or for certain health conditions. These medications can be an important part of the treatment but also come with serious risks. It is important to work with your healthcare provider to make sure you are getting the safest, most effective care. WHAT ARE THE RISKS AND SIDE EFFECTS OF OPIOID USE? Prescription opioids carry serious risks of addiction and overdose, especially with prolonged use. An opioid overdose, often marked by slowed breathing, can cause sudden . The use of prescription opioids can have a number of side effects as well, even when taken as directed: ? Tolerance?meaning you might need to take more of the medication for the same pain relief ? Physical dependence?meaning you have symptoms of withdrawal when a medication is stopped ? Increased sensitivity to pain ? Constipation ? Nausea, vomiting, and dry mouth ? Sleepiness and dizziness ? Confusion ? Depression ? Low levels of testosterone that can result in lower sex drive, energy, and strength ? Itching and sweating RISKS ARE GREATER WITH: ? History of drug misuse, substance use disorder, or overdose ? Mental health conditions (such as depression or anxiety) ? Sleep apnea ? Older age (65 years and older) ? Avoid alcohol while taking prescription opioids. Also, unless specifically advised by your health care provider, medications to avoid include: ? Benzodiazepines (such as Xanax or Valium) ? Muscle relaxants (such as Soma or Flexeril) ? Hypnotics (such as Ambien or Lunesta) ? Other prescription opioids KNOW YOUR OPTIONS Talk to your health care provider about ways to manage your pain that don?t involve prescription opioids. Some of these options may actually work better and have fewer risks and side effects. Options may include: ? Pain relievers such as acetaminophen, ibuprofen, and naproxen ? Some medication that are also used for depression or seizures ? Physical therapy and exercise ? Cognitive behavioral therapy, a psychological, goal-directed approach, in which patients learn how to modify physical, behavioral, and emotional triggers of pain and stress. IF YOU ARE PRESCRIBED OPIOIDS FOR PAIN: ? Never take opioids in greater amounts or more often than prescribed. ? Follow up with your primary health care provider. o Work together to create a plan on how to manage your pain. o Talk about ways to help manage your pain that don?t involve prescription opioids. o Talk about any and all concerns and side effects. ? Help prevent misuse and abuse o Never sell or share prescription opioids. o Never use another person?s prescription opioids. ? Store prescription opioids in a secure place and out of reach of others (this may include visitors, children, friends, and family). ? Safely dispose of unused prescription opioids: Find your community drug take-back program or your pharmacy mail-back program, or flush them down the toilet, following guidance from the Food and Drug Administration (www.fda.gov/Drugs/Re (more content not included)... Normal [facility] CT SPINE LUMBAR WITH CONTRAS Ton 12-04-2023 CT SPINE LUMBAR WITH CONTRAST 12/04/2023 10:42 PM TECHNIQUE: CT SPINE LUMBAR WITH CONTRAST. INDICATION: BACK PAIN, . COMPARISON: None available. FINDINGS: Nonspecific stranding posterior lumbar subcutaneous fat. Moderate L4-5 degenerative disc disease, facet arthropathy, with central and bilateral neural foraminal stenoses. Anatomic alignment, preserved vertebral body height, and structurally intact posterior elements. Paraspinal soft tissues are otherwise unremarkable. Incidental bilateral adrenal nodules. IMPRESSION: 1. Nonspecific posterior lumbar subcutaneous fat stranding without discrete fluid collection. 2. 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 3. Incidental bilateral adrenal nodules (indeterminate on the basis of this examination); consider dedicated adrenal imaging. Keke Beebe D.O.Workstation ID:[id number] Patient arrives ambulatory to triage with c/o back pain. Patient states she had a stimulator removed a month ago, just completed a 10 hour car ride and thinks that aggravated her back. A&Ox4. Normal [facility] IMPRESSION: 1. Nonspecific posterior lumbar subcutaneous fat stranding without discrete fluid collection. 2. 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 3. Incidental bilateral adrenal nodules (indeterminate on the basis of this examination); consider dedicated adrenal imaging. Keke Beebe D.O.Workstation ID:[id number] [facility] 12/04/2023 10:42 PM TECHNIQUE: CT SPINE LUMBAR WITH CONTRAST. INDICATION: BACK PAIN, . COMPARISON: None available. FINDINGS: Nonspecific stranding posterior lumbar subcutaneous fat. Moderate L4-5 degenerative disc disease, facet arthropathy, with central and bilateral neural foraminal stenoses. Anatomic alignment, preserved vertebral body height, and structurally intact posterior elements. Paraspinal soft tissues are otherwise unremarkable. Incidental bilateral adrenal nodules. [facility] Walker, DO - 12/04/2023 12/04/2023 10:42 PM TECHNIQUE: CT SPINE LUMBAR WITH CONTRAST. INDICATION: BACK PAIN, . COMPARISON: None available. FINDINGS: Nonspecific stranding posterior lumbar subcutaneous fat. Moderate L4-5 degenerative disc disease, facet arthropathy, with central and bilateral neural foraminal stenoses. Anatomic alignment, preserved vertebral body height, and structurally intact posterior elements. Paraspinal soft tissues are otherwise unremarkable. Incidental bilateral adrenal nodules. IMPRESSION: 1. Nonspecific posterior lumbar subcutaneous fat stranding without discrete fluid collection. 2. 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 3. Incidental bilateral adrenal nodules (indeterminate on the basis of this examination); consider dedicated adrenal imaging. Keke Beebe D.O.Workstation ID:[id number] [facility] Radiology Study observation (narrative) [facility] CT SPINE LUMBAR WITH CONTRAS TOrdered By: Keke Beebe on 12-04-2023 [employer] Work Phone: ED NOTESon 12-04-2023 [facility] Ed Note ED Note: Last filed note HNO ID: [id number] Author: Cheyanne Powers RN Service: ? Author Type: Registered Nurse Filed: 12/04/23 2332 Note Text: Patient discharged to home, alert and oriented, skin warm, dry and pink. Denies needs and or questions. Will follow-up as directed, patient encouraged to return for worsening or new symptoms or other concerns. Normal [facility] Ed Note ED Note: Last filed note HNO ID: [id number] Author: Ilya Carrillo RN Service: ? Author Type: Registered Nurse Filed: 12/04/23 2240 Note Text: Pt to CT Normal [facility] ED PROVIDER NOTESon 12-04-19 [facility] Ed Provider Note ED Provider Note: L ast filed note HNO ID: [id number] Author: Ben Urbina MD Service: Emergency Medicine Author Type: Physician Filed: 12/04/23 2216 Note Text: I have seen Jerad Tracy [...] full H department evaluation, and medical decision-making. 48-year-old female with history of previous spine stimulator which unfortunately got infected and was recently removed. Was driving through the area and having severe pain. Her previous surgeries were done in the [place] area at the [facility]. Because of the severe pain she presents to the emergency department today. Review of her records demonstrates multiple recent imaging modalities which are able to be reviewed through care everywhere, including MRI and CT of her lumbar spine. She did have noted fluid collections. She also had recent labs which showed normal kidney function, most recently on November 16. Will obtain repeat CT imaging, and obtain outside images for radiology comparison. Electronically signed by: Ben Urbina MD, 12/04/2023 10:14 PM Normal [facility] Ed Provider Note ED Provider Note: Pepe blas filed note HNO ID: [id number] Author: Nighat Bailey PA-C Service: Emergency Medicine Author Type: Physician [employer] Filed: 12/04/23 2318 Note Text: TRIAGE CHIEF COMPLAINT: Chief Complaint Patient presents with Back Pain HPI: Jerad Tracy is a 48 year old female who presents to the emergency department with back pain. Patient reports tonight when she was in a car driving back home from [place] to [place]. Started to have severe low back pain which prompted her ED visit. Patient reports in September she had pain stimulator in her back removed due to infection. Patient reports she was on antibiotics for 6 weeks and finished her treatment course on November 27. Patient denies any trauma falls or injury. She denies bowel or bladder retention or incontinence or saddle anesthesia. She has not been taking any medicine for relief of her pain. Patient states she has a office appointment with her spine surgeon Dr. Adams at [facility] this Saturday. Pain is 9/10. REVIEW OF SYSTEMS: Review of Systems All other systems reviewed and are negative. PAST MEDICAL HISTORY: History reviewed. No pertinent past medical history. FAMILY HISTORY: History reviewed. No pertinent family history. SOCIAL HISTORY: Social History Socioeconomic History Marital status: Legally Spouse name: Not on file Number of children: Not on file Years of education: Not on file Highest education level: Not on file Occupational History Not on file Tobacco Use Smoking status: Every Day Current packs/day: 0.50 Types: Cigarettes Smokeless tobacco: Never Substance and Sexual Activity Alcohol use: Not on file Drug use: Never Sexual activity: Not on file Other Topics Concern Not on file Social History Narrative Not on file Social Determinants of Health Financial Resource Strain: Low Risk (11/17/2023) Received from [facility] Overall Financial Resource Strain (CARDIA) Difficulty of Paying Living Expenses: Not hard at all Food Insecurity: Patient Declined (10/11/2023) Received from [facility] Hunger Vital Sign Worried About Running Out of Food in the Last Year: Patient declined Ran Out of Food in the Last Year: Patient declined Transportation Needs: No Transportation Needs (11/17/2023) Received from [facility] PRAPARE - Transportation Lack of Transportation (Medical): No Lack of Transportation (Non-Medical): No Physical Activity: Patient Declined (10/11/2023) Received from [facility] Exercise Vital Sign Days of Exercise per Week: Patient declined Minutes of Exercise per Session: Patient declined Stress: Patient Declined (10/11/2023) Received from [facility] [place] [facility] Occupational Health - Occupational Stress Questionnaire Feeling of Stress : Patient declined Social Connections: Patient Declined (10/11/2023) Received from [facility] Social Connection and Isolation Panel [NHANES] Frequency of Communication with Friends and Family: Patient declined Frequency of Social Gatherings with Friends and Family: Patient declined Attends Mormon Services: Patient declined Active Member of Clubs or Organizations: Patient declined Attends Club or Organization Meetings: Patient declined Marital Status: Patient declined Intimate Partner Violence: Patient Declined (10/11/2023) Received from [facility] Humiliation, Afraid, Rape, and Kick questionnaire Fear of Current or Ex-Partner: Patient declined Emotionally Abused: Patient declined Physically Abused: Patient declined Sexually Abused: Patient declined Housing Stability: Low Risk (11/17/2023) Received from [facility] Housing Stability Vital Sign Unable to Pay for Housing in the Last Year: No Number of Times Moved in the Last Year: 1 Homeless in the Last Year: No SURGICAL HISTORY: History reviewed. No pertinent surgical history. CURRENT MEDICATIONS: No current facility-administered medications for this encounter. Current Outpatient Medications: methocarbamoL (ROBAXIN) 500 mg tablet, Take 2 Tab by mouth two times a day as needed for up to 7 days, Disp: 28 Tab, Rfl: 0 cyclobenzaprine (FLEXERIL) 5 mg tablet, Take 1 Tab by mouth three times a day for 3 days, Disp: 9 Tab, Rfl: 0 ketorolac (TORADOL) 10 mg [...] a day, Disp: 10 Tab, Rfl: 0 ALLERGIES: Hydrocodone-acetaminoph en and Penicillin g PHYSICAL EXAM: VITAL SIGNS: Vitals: (more content not included)... Normal [facility] ED TRIAGEon 12-04-2023 [facility] Ed Triage Note ED Triage Note: Last filed note HNO ID: [id number] Author: Rebecca Gómez, RN Service: Emergency Medicine Author Type: Registered Nurse Filed: 12/04/23 4268 Note Text: Patient arrives ambulatory to triage with c/o back pain. Patient states she had a stimulator removed a month ago, just completed a 10 hour car ride and thinks that aggravated her back. A Normal [facility] CT abdomen pelvis w conon CT abdomen pelvis w con [facility] [address] [place] [address] [place] [address] CT Scan Report Signed Patient: Jerad Tracy MR#: [id number] 49 : 1975 Acct:[id number] Age/Sex: 48 / F ADM Date: 12/01/23 Loc: ER Room: Type: [facility] ER Attending Dr: Copies to: Vlad Bhandari DO Ordering Provider: Vlad Bhandari DO Date of Service: 12/01/23 CT/CT abdomen pelvis w con: flank pain and rlq pain CT ABDOMEN AND PELVIS WITH CONTRAST COMPARISON: 10/05/2023 CLINICAL DATA: Right flank and lower quadrant pain. Spiral images were obtained through the abdomen and pelvis following 90 mL of Isovue-300. This CT exam was performed using one or more following dose reduction techniques: Automated exposure control, adjustment of the mA and/or kV according to patient size, or use of iterative reconstruction technique. Limited cuts through the lung bases show no contributory findings. The gallbladder is surgically absent. There is slight biliary prominence. No common duct stones are seen. No intrahepatic masses are identified. The spleen and pancreas show no acute findings. Similar adrenal nodularity is noted. There are symmetric renal nephrograms, without hydronephrosis. There is a tiny renal cyst on the left. There is mild atherosclerotic plaque at the distal aorta and iliac arteries. There are small lymph nodes. No ascites is seen. The small bowel loops are not distended. Air and stool are visualized along the colon. Subtle levoscoliotic curvature and degenerative changes are seen at the spine, greatest at L4-5. Images through the pelvis show normal caliber small bowel. No appendiceal inflammation is identified. The distal colon is underdistended. No diverticular disease is noted. The uterus is surgically absent. There are no bladder abnormalities for the degree of distention. No ascites is seen. There is some sclerosis at the SI joints. The spinal stimulator and battery pack in the left gluteal region on the comparison have been removed. There is minor residual subcutaneous stranding. CT/CT abdomen pelvis w con IMPRESSION: NO BOWEL OR URINARY TRACT OBSTRUCTION. NO ACUTE FINDINGS. Impression dictated by: Idalia Juarez M.D.12/02/2023 8:41 AM Dictation Location: [place] [address] Transcribed By: [facility] 12/02/23840 Dictated By: Idalia Juarez MD 12/02/23825 Signed By: 12/02/23840 Normal [facility] US venous duplex LE RTon US venous duplex LE RT [facility] [place] [address] Ultrasound Report Signed Patient: Jerad Tracy MR#: [id number] 49 : 1975 Acct:[id number] Age/Sex: 48 / F ADM Date: 12/01/23 Loc: ER Room: Type: [facility] ER Attending Dr: Ordering Provider: Vlad Bhandari DO Date of Service: 12/02/23 US/US venous duplex LE RT: calf tendernes Copies to: Vlad Bhandari DO RIGHT LOWER EXTREMITY VENOUS DUPLEX INDICATION: Painful swollen right leg Unilateral right lower extremity venous duplex Doppler study was obtained utilizing B-mode, color- flow and spectral Doppler. FINDINGS: The right common femoral, femoral, and popliteal veins showed adequate compressibility, color-flow and augmentation. The right posterior tibial and peroneal veins were compressible, as well as proximal greater saphenous vein. The contralateral left common femoral vein was compressible with color-flow and augmentation. US/US venous duplex LE RT IMPRESSION: NO EVIDENCE OF DEEP VENOUS THROMBOSIS IN THE RIGHT LOWER EXTREMITY. NO SUPERFICIAL THROMBOPHLEBITIS WAS NOTED. Impression dictated by: Declan Franco M.D.12/02/2023 9:08 AM Dictation Location: [place] [address] Tech: Abby Francisco Transcribed By: BRYCE 12/02/23907 Dictated By: Declan Franco MD 12/02/23907 Signed By: 12/02/23907 Normal [facility] Alanine aminotransferase [En zymatic activity/volume] in Serum or PlasmaOrdered By: Vlad Bhandari on 12-01-2023 ALT [Catalytic activity/Vol] 22 U/L Normal 7-52 [facility] Comment on above: Performed By: #### U HCG, ADDONUAPLUS #### [facility] [address] [place] [address] [place] Albumin [Mass/volume] in Ser um or Plasma by Bromocresol green (BCG) dye binding methoOrdered By: Vlad Bhandari on 12-01-2023 Albumin BCG dye [Mass/Vol] 3.9 g/dL 3.5-5.7 [facility] Alkaline phosphatase [Enzyma tic activity/volume] in Serum or PlasmaOrdered By: Vlad Bhandari on 12-01-2023 ALP [Catalytic activity/Vol] 67 U/L Normal 34-104 [facility] Comment on above: Performed By: #### U HCG, ADDONUAPLUS #### [facility] [address] [place] [address] [place] Aspartate aminotransferase [ Enzymatic activity/volume] in Serum or PlasmaOrdered By: Vlad Bhandari on 12-01-2023 AST [Catalytic activity/Vol] 24 U/L Normal 13-39 [facility] Comment on above: Performed By: #### U HCG, ADDONUAPLUS #### [facility] [address] [place] [address] [place] Automated basophil %Ordered By: Vlad Bhandari on 12-01-2023 Basophils/100 WBC (Bld) 0.3 % Normal . [facility] Comment on above: Performed By: #### U HCG, ADDONUAPLUS #### [facility] [address] [place] [address] [place] Automated basophil countOrde red By: Vlad Bhandari on 12-01-2023 Basophils (Bld) [#/Vol] 0.0 10*3/uL Normal 0.0-0.2 [facility] Comment on above: Result Comment: PERF ORMED BY: [place] [address] PATHOLOGIST RING MAKING 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 JASON WILSON M.D. Performed By: #### U HCG, ADDONUAPLUS #### [address] Automated blood monocyte cou ntOrdered By: Vlad Bhandari on 12-01-2023 Monocytes (Bld) [#/Vol] 0.7 10*3/uL Normal 0.0-0.8 [facility] Comment on above: Performed By: #### U HCG, ADDONUAPLUS #### [address] Automated eosinophil %Ordere d By: Vlad Bhandari on 12-01-2023 Eosinophils/100 WBC (Bld) 3.3 % Normal . [facility] Comment on above: Performed By: #### U HCG, ADDONUAPLUS #### [address] Automated eosinophil countOr dered By: Vlad Bhandari on 12-01-2023 Eosinophils (Bld) [#/Vol] 0.3 10*3/uL Normal 0.0-0.45 [facility] Comment on above: Performed By: #### U HCG, ADDONUAPLUS #### [address] Automated monocyte %Ordered By: Vlad Bhandari on 12-01-2023 Monocytes/100 WBC (Bld) 7.8 % Normal . [facility] Comment on above: Performed By: #### U HCG, ADDONUAPLUS #### [address] Automated neutrophil %Ordere d By: Vlad Bhandari on 12-01-2023 Neutrophils/100 WBC (Bld) 61.5 % Normal . [facility] Comment on above: Performed By: #### U HCG, ADDONUAPLUS #### [facility] [address] [place] [id number] [facility] BMPon 12-01-2023 Anion gap [Moles/Vol] 9 mmol/L Normal 6-16 [facility] Comment on above: Performed By: #### 2 [id number] #### [facility] [address] [place] [address] Calcium [Mass/Vol] 8.8 mg/dL Low 8.9-11.1 [facility] Comment on above: Performed By: #### 2 [id number] #### [facility] [address] [place] [address] Chloride [Moles/Vol] 107 mmol/L Normal 101-111 [facility] Comment on above: Performed By: #### 2 [id number] #### [facility] [address] [place] [address] CO2 [Moles/Vol] 28 mmol/L Normal 21-31 [facility] Comment on above: Performed By: #### 2 [id number] #### [facility] [address] [place] [address] Creatinine [Mass/Vol] 0.7 mg/dL Normal 0.5-1.3 [facility] Comment on above: Performed By: #### 2 [id number] #### [facility] [address] [place] [address] Glucose [Mass/Vol] 101 mg/dL Normal 55-199 [facility] Comment on above: Performed By: #### 2 [id number] #### [facility] [address] [place] [address] Potassium [Moles/Vol] 3.4 mmol/L Low 3.5-5.3 [facility] Comment on above: Performed By: #### 2 [id number] #### [facility] [address] [place] [address] Sodium [Moles/Vol] 141 mmol/L Normal 135-145 [facility] Comment on above: Performed By: #### 2 [id number] #### [facility] [address] [place] [address] Urea nitrogen [Mass/Vol] 12 mg/dL Normal 5-21 [facility] Comment on above: Performed By: #### 2 [id number] #### [facility] [address] [place] [address] Urea nitrogen/Creatinine [Mass ratio] 17 No Units Normal 10-20 [facility] Comment on above: Performed By: #### 2 [id number] #### [facility] [address] [place] [address] Bacteria [Presence] in Urine by AutomatedOrdered By: Vlad Bhandari on 12-01-2023 Bacteria Auto Ql (U) None seen [HPF] None Seen [facility] Basic Metabolic Panelon Creatinine Clr Calc Pharmacy 116.43 Normal [facility] Comment on above: Performed By: #### U HCG, ADDONUAPLUS #### [facility] [address] GFR/1.73 sq M.predicted MDRD (S/P/Bld) [Vol rate/Area] mL/min/{1.73_m2} Normal [facility] Comment on above: Performed By: #### U HCG, ADDONUAPLUS #### [facility] [address] [place] [address] Bilirubin Test strip Ql (U)O rdered By: Vlad Bhandari on 12-01-2023 Bilirubin Ql (U) Negative Negative [facility] Bilirubin.direct [Mass/volum e] in Serum or PlasmaOrdered By: Vlad Bhandari on 12-01-2023 Bilirubin.direct [Mass/Vol] 0.00 mg/dL Low 0.03-0.18 [facility] Comment on above: If the DBIL is less than 0.1, IBIL is not able to becalculated. Bilirubin.total [Mass/volume ] in Serum or PlasmaOrdered By: Vlad Bhandari on 12-01-2023 Bilirubin [Mass/Vol] 0.3 mg/dL Normal 0.3-1.0 [facility] Comment on above: Performed By: #### U HCG, ADDONUAPLUS #### [facility] [address] CBC w/ Auto Diffon 4 Basophils/100 WBC (Bld) 0.2 % Normal 0.0-2.0 [facility] Comment on above: Performed By: #### 2 [id number] #### [facility] [address] [place] [address] Basophils/Leukocytes Auto (Bld) [Pure # fraction] 0.0 E9/L Normal 0.0-0.2 [facility] Comment on above: Performed By: #### 2 [id number] #### [facility] [address] [place] [address] Eosinophils (Bld) [#/Vol] 0.3 E9/L Normal 0.0-0.5 [facility] Comment on above: Performed By: #### 2 [id number] #### [facility] [address] [place] [address] Eosinophils/100 WBC (Bld) 3.1 % Normal 0.0-8.0 [facility] Comment on above: Performed By: #### 2 [id number] #### [facility] [address] [place] [address] Erythrocyte distribution width (RBC) [Ratio] 14.1 % Normal 10.9-14.2 [facility] Comment on above: Performed By: #### 2 [id number] #### [facility] [address] [place] [address] Hematocrit (Bld) [Volume fraction] 35.4 % Normal 34.0-46.0 [facility] Comment on above: Performed By: #### 2 [id number] #### [facility] [address] [place] [address] Hemoglobin (Bld) [Mass/Vol] 12.1 g/dL Normal 12.0-16.0 [facility] Comment on above: Performed By: #### 2 [id number] #### [facility] [address] [place] [address] Lymphocytes (Bld) [#/Vol] 1.9 E9/L Normal 1.0-4.0 [facility] Comment on above: Performed By: #### 2 [id number] #### [facility] [address] [place] [address] Lymphocytes/100 WBC (Bld) 20.2 % Normal 14.0-50.0 [facility] Comment on above: Performed By: #### 2 [id number] #### [facility] [address] [place] [address] MCH (RBC) [Entitic mass] 31.9 pg Normal 27.0-34.0 [facility] Comment on above: Performed By: #### 2 [id number] #### [facility] [address] [place] [address] MCHC (RBC) [Mass/Vol] 34.3 g/dL Normal 31.4-36.0 [facility] Comment on above: Performed By: #### 2 [id number] #### [facility] [address] [place] [address] [id number] MCV (RBC) [Entitic vol] 93.0 fL Normal 80.0-100.0 [facility] Comment on above: Performed By: #### 2 [id number] #### [facility] [address] [place] [address] 18739 Monocytes (Bld) [#/Vol] 0.6 E9/L Normal 0.2-1.0 [facility] Comment on above: Performed By: #### 2 [id number] #### [facility] [address] [place] [address] Neutrophils (Bld) [#/Vol] 6.8 E9/L Normal 2.0-7.5 [facility] Comment on above: Performed By: #### 2 [id number] #### [facility] [address] [place] [address] 85694 Neutrophils/100 WBC (Bld) 70.4 % Normal 36.0-75.0 [facility] Comment on above: Performed By: #### 2 [id number] #### [facility] [address] [place] [address] Platelet 352.0 E9/L Normal 150.0-500.0 [facility] Comment on above: Performed By: #### 2 [id number] #### [facility] [address] [place] [address] Platelet mean volume (Bld) [Entitic vol] 7.6 fL Normal 6.4-10.8 [facility] Comment on above: Performed By: #### 2 [id number] #### [facility] [address] [place] [address] RBC (Bld) [#/Vol] 3.8 E12/L Low 4.3-5.9 [facility] Comment on above: Performed By: #### 2 [id number] #### [facility] [address] [place] [address] WBC corrected for nucl RBC Auto (Bld) [#/Vol] 9.6 E9/L Normal 4.0-11.0 [facility] Comment on above: Performed By: #### 2 [id number] #### [facility] [address] [place] [address] CHEMISTRYOrdered By: SYSTEM SYSTEM on 12-01-2023 ALP [Catalytic activity/Vol] 70 [iU]/d Normal 21 - 98 Int._Unit/L Remisol Chem ALT No additional P-5'-P [Catalytic activity/Vol] 23 [iU]/d Normal 6 - 46 Int._Unit/L Remisol Chem Anion gap [Moles/Vol] 9 mmol/L Normal 6 - 16 mEq/L R emisol Chem AST [Catalytic activity/Vol] 24 [iU]/d Normal 5 - 43 Int._Unit/L Remisol Chem Bilirubin [Mass/Vol] 0.4 mg/dL Normal 0.0 - 1 .1 mg/dL [facility] Bilirubin.direct [Mass/Vol] 0.1 mg/dL Normal 0.0 - 0.4 mg/dL Remisol Chem Bilirubin.indirect [Mass or moles/Vol] 0.3 mg/dL Normal 0.1 - 0.9 mg/dL [facility] Calcium [Mass/Vol] 8.8 mg/dL Low 8.9 - 11. 1 mg/dL [facility] Chloride [Moles/Vol] 107 mmol/L Normal 101 - 1 11 mmol/L [facility] Chem CO2 [Moles/Vol] 28 mmol/L Normal 21 - 31 mmol/L [facility] Creatinine [Mass/Vol] 0.7 mg/dL Normal 0.5 - 1.3 mg/dL [facility] eGFR 107 mL/min/1.73 m2 Normal >=59mL/mi n/1 .73 m2 [facility] Globulin (S) [Mass/Vol] 3.1 g/dL Normal 1.4 - 4.0 gm/dL [facility] Glucose [Mass/Vol] 101 mg/dL Normal 55 - 199 mg/dL [facility] Lactic Acid Lvl 0.7 mmol/L Normal 0.5 - 2.2 mmol/L [facility] Lipase [Catalytic activity/Vol] 24 U/L Normal 13 - 58 unit/L [facility] Potassium [Moles/Vol] 3.4 mmol/L Low 3.5 - 5.3 mmol/L [facility] Protein [Mass/Vol] 7.0 g/dL Normal 6.0 - 7.8 gm/dL [facility] Chem Troponin HS 3.50 pg/mL Low 10.10 - 27.10 pg/mL [facility] Comment on above: Interpretive Data: T he 95% CI (Confidence Interval) PPV (Positive Predictive Value) for myocardial infarction in females is 38 pg/mL, in males 51 pg/mL. The results should be used in conjunction with clinical conditions of myocardial infarction. (Access High Sensitivity Troponin I Instructions For Use, Katlyn [place], October 2017) Urea nitrogen [Mass/Vol] 12 mg/dL Normal 5 - 21 mg/dL [facility] Urea nitrogen/Creatinine [Mass ratio] 17 mg/mg Normal 10 - [address] Abdomen/Pelvis w/o Contra kris 12-01-2023 CT Abdomen/Pelvis w/o Contrast Exam Date/Time: 12/01/2023 13:34 EDT Reason for Exam: ABDOMINAL PAIN, ACUTE, NONLOCALIZED;Other (please specify) Report IMPRESSION: NO ACUTE INTRA-ABDOMINAL PROCESS OR SIGNIFICANT CHANGE FROM PRIOR STUDIES IDENTIFIED. CLINICAL HISTORY: ABDOMINAL PAIN, ACUTE, NONLOCALIZED. COMPARISON: CT abdomen and pelvis 07/20/2023, and lumbar spine MRI 09/09/2023. TECHNIQUE: Spiral unenhanced images were obtained of the abdomen and pelvis without contrast. All CT scans at this facility use dose modulation, iterative reconstruction, and/or weight based dosing when appropriate to reduce radiation dose to as low as reasonably achievable. Unless otherwise stated, incidental findings identified in this report do not require routine follow-up imaging. FINDINGS: Liver: No enlargement, significant fatty infiltration, or suspicious lesion identified without contrast. Biliary: The gallbladder has been removed. No abnormal biliary ductal dilatation. Pancreas: No mass, organized fluid collection, or abnormal pancreatic ductal dilatation. Spleen: Unremarkable. Adrenals: Small bilateral adrenal adenomas, unchanged.. Kidneys: No significant urinary tract calculi or suspicious mass. GI tract: No abnormal dilation or wall thickening. Normal appendix. Lymph nodes: No pathologically enlarged lymph nodes. Vasculature: No aneurysm. Minimal calcified atherosclerotic plaquing. Mesentery/peritoneum/re troperitoneum: No ascites, organized fluid collection, inflammatory changes, or suspicious mass. Pelvis: The nearly decompressed urinary bladder is otherwise unremarkable. Previous hysterectomy. Bones/soft tissue: No acute osseous findings identified. Mild to moderate degenerative changes, predominantly of the lower lumbar spine. Lower thorax: Noncontributory. Report Ordering Provider: Kristie Boss FINAL REPORT Dictated: 12/01/2023 1:40 pm Terrance Hendrickson MD Signed (Electronic Signature): 12/01/2023 1:40 pm Signed by: Terrance Hendrickson MD Transcribed by: KIERRA Technologist: SHARON Technical Comments Rectal Contrast Given? No Oral contrast amount in ml's: 0 Normal [facility] Calcium [Mass/volume] in Ser um or PlasmaOrdered By: Vlad Bhandari on 12-01-2023 Calcium [Mass/Vol] 8.6 mg/dL Normal 8.6-10.3 [facility] Comment on above: Performed By: #### U HCG, ADDONUAPLUS #### [address] Calcium oxalate crystals [Pr esence] in Urine by Computer assisted methodOrdered By: Vlad Bhandari on 12-01-2023 Calcium oxalate crystals Computer assisted Ql (U) 3+ [HPF] [facility] Carbon dioxide, total [Moles /volume] in Serum or PlasmaOrdered By: Vlad Bhandari on 12-01-2023 CO2 [Moles/Vol] 24.9 mmol/L Normal 21.0-31.0 [facility] Comment on above: Performed By: #### U HCG, ADDONUAPLUS #### [address] Chloride [Moles/volume] in S saw or PlasmaOrdered By: Vlad Bhandari on 12-01-2023 Chloride [Moles/Vol] 108 mmol/L High 98-107 [facility] Comment on above: Performed By: #### U HCG, ADDONUAPLUS #### [address] Color of Urine by AutoOrdere d By: Vlad Bhandari on 12-01-2023 Color (U) Yellow Normal Yellow [facility] Comment on above: Order Comment: Name Collection Type:: Clean-Voided Midstream Performed By: #### U HCG, ADDONUAPLUS #### [address] Complete Blood Count Auto Di ffon 12-01-2023 Mean Corpuscular HGB Conc 33.5 g/dL Normal 32.0-35.0 [facility] Comment on above: Performed By: #### U HCG, ADDONUAPLUS #### [place] [address] [place] Monocytes/100 WBC (Bld) 24.15 % High 0.00-20.00 [facility] Comment on above: Result Comment: For adults in ED, MDW > 20.0 may be associated with a higher risk of sepsis during the first 12 hrs of hospital admission Performed By: #### U HCG, ADDONUAPLUS #### [address] NRBC% 0.0 /100{WBC} Normal 0-0.5 [facility] Comment on above: Performed By: #### U HCG, ADDONUAPLUS #### [facility] [address] [place] [address] [place] Creatinine [Mass/volume] in Serum or PlasmaOrdered By: Vlad Bhandari on 12-01-2023 Creatinine [Mass/Vol] 0.74 mg/dL Normal 0.60-1.20 [facility] Comment on above: Performed By: #### U HCG, ADDONUAPLUS #### [facility] [address] [place] [address] [place] Dipstick and Microscopicon 0 12-01-2023 Bacteria,Urine None Seen Normal None Seen [facility] Comment on above: Order Comment: Name Collection Type:: Clean-Voided Midstream Performed By: #### U HCG, ADDONUAPLUS #### [place] [address] [place] Bilirubin,Urine Negative Normal Negative [facility] Comment on above: Order Comment: Name Collection Type:: Clean-Voided Midstream Performed By: #### U HCG, ADDONUAPLUS #### [address] Calcium Oxalate Crystals,Urine 3+ Normal [facility] Comment on above: Order Comment: Name Collection Type:: Clean-Voided Midstream Performed By: #### U HCG, ADDONUAPLUS #### [address] Glucose Ql (U) Normal Normal Normal [facility] Comment on above: Order Comment: Name Collection Type:: Clean-Voided Midstream Performed By: #### U HCG, ADDONUAPLUS #### [place] [address] [place] Hyaline Casts,Urine 0-8 Normal 0-8 [facility] Comment on above: Order Comment: Name Collection Type:: Clean-Voided Midstream Performed By: #### U HCG, ADDONUAPLUS #### [place] [address] [place] Mucus,Urine 2+ Critically abnormal [facility] Comment on above: Order Comment: Name Collection Type:: Clean-Voided Midstream Performed By: #### U HCG, ADDONUAPLUS #### [place] [address] [place] Nitrite,Urine Negative Normal Negative [facility] Comment on above: Order Comment: Name Collection Type:: Clean-Voided Midstream Performed By: #### U HCG, ADDONUAPLUS #### [facility] [address] [place] [address] [place] Occult Blood,Urine Negative Normal Negative [facility] Comment on above: Order Comment: Name Collection Type:: Clean-Voided Midstream Performed By: #### U HCG, ADDONUAPLUS #### [place] [address] [place] Protein,Urine Trace High Negative [facility] Comment on above: Order Comment: Name Collection Type:: Clean-Voided Midstream Performed By: #### U HCG, ADDONUAPLUS #### [place] [address] [place] RBC,Urine 1-2 Normal 0-4 [facility] Comment on above: Order Comment: Name Collection Type:: Clean-Voided Midstream Performed By: #### U HCG, ADDONUAPLUS #### [place] [address] [place] Renal Epithelial Cells,Urine 1-2 High 0-1 [facility] Comment on above: Order Comment: Name Collection Type:: Clean-Voided Midstream Performed By: #### U HCG, ADDONUAPLUS #### [place] [address] [place] Specificy [place],Urine 1.026 Normal 1.001-1.030 [facility] Comment on above: Order Comment: Name Collection Type:: Clean-Voided Midstream Performed By: #### U HCG, ADDONUAPLUS #### [place] [address] [place] Squamous Epithelial Cell,Urine 10-19 High 0-2 [facility] Comment on above: Order Comment: Name Collection Type:: Clean-Voided Midstream Performed By: #### U HCG, ADDONUAPLUS #### [place] [address] [place] Urobilinogen,Urine 3 mg/dL High Normal [facility] Comment on above: Order Comment: Name Collection Type:: Clean-Voided Midstream Performed By: #### U HCG, ADDONUAPLUS #### [facility] [address] [place] [id number] [facility] WBC,Urine 1-2 Normal 0-4 [facility] Comment on above: Order Comment: Name Collection Type:: Clean-Voided Midstream Performed By: #### U HCG, ADDONUAPLUS #### [facility] [address] [place] [id number] [facility] ED Clinical Summaryon 2023 ED Clinical Summary ED Clinical Summary [place] [id number] ED Clinical Summary Person Information Name: JERAD TRACY Alesha/[facility] Age: 48 Years : 1975 Sex: Female Language: Serbian PCP: Cheyanne Rincon Marital Status: Visit Id: Visit Reason: Flank pain; Lower leg pain-swelling; LEGS AND FEET SWOLLEN, KIDNEYS THROBBING Speciality: Acuity: 3 Enc Type: Emergency Med Service: Emergency Arrival: 12/01/2023 11:42:40 Discharge: 12/01/2023 14:28:01 LOS: 000 02:46 Checkin: 12/01/2023 11:42:40 Checkout: 12/01/2023 14:28:01 Dispo Type: Home (Routine DC) EVENTS: Event Name Event Status Request Date/Time Start Date/Time Complete Date/Time Arrive Complete 12/01/2023 11:42:40 12/01/2023 11:42:40 12/01/2023 11:42:40 Document Home Meds Request 12/01/2023 11:42:40 Triage Complete 12/01/2023 11:42:40 12/01/2023 11:57:07 12/01/2023 11:57:07 Registration Complete 12/01/2023 11:45:36 12/01/2023 11:45:36 12/01/2023 11:45:36 Reg Complete Request 12/01/2023 11:45:36 Reg Bed Request Complete 12/01/2023 11:45:36 12/01/2023 11:45:36 12/01/2023 11:45:36 Bed Assign Complete 12/01/2023 11:51:41 12/01/2023 11:51:41 12/01/2023 11:51:41 Dr Exam Complete 12/01/2023 11:51:41 12/01/2023 11:58:45 12/01/2023 11:58:45 RN Exam Complete 12/01/2023 11:51:41 12/01/2023 13:07:43 12/01/2023 13:07:43 Registration Request 12/01/2023 11:58:45 Dr Exam Complete 12/01/2023 12:00:40 12/01/2023 12:00:40 12/01/2023 12:00:40 EKG Complete 12/01/2023 12:47:55 12/01/2023 13:41:26 CT Complete 12/01/2023 12:47:55 12/01/2023 13:07:34 12/01/2023 13:34:50 NPO Request 12/01/2023 12:47:55 Pending Labs Complete 12/01/2023 12:47:55 12/01/2023 13:59:29 Lab Complete 12/01/2023 12:47:55 12/01/2023 13:53:28 Pending Labs Complete 12/01/2023 13:29:40 12/01/2023 13:29:40 12/01/2023 13:53:03 Lab Complete 12/01/2023 13:29:40 12/01/2023 13:29:40 12/01/2023 13:53:03 Pending Labs Cancel 12/01/2023 13:43:37 12/01/2023 13:44:43 Lab Cancel 12/01/2023 13:43:37 12/01/2023 13:44:43 Pending Labs Complete 12/01/2023 13:45:47 12/01/2023 14:05:37 Lab Complete 12/01/2023 13:45:47 12/01/2023 14:05:37 Pending Labs Complete 12/01/2023 14:02:25 12/01/2023 14:02:25 12/01/2023 14:02:25 Meds Admin Complete 12/01/2023 14:16:36 12/01/2023 14:24:10 Discharge Complete 12/01/2023 14:17:42 12/01/2023 14:28:11 12/01/2023 14:28:11 Transfer Complete 12/01/2023 14:28:11 12/01/2023 14:28:11 12/01/2023 14:28:11 ADDRESS: [place] [id number] PHYS DOC NOTES: MEDICAL INFORMATION: Prescriptions Given: Medications to Continue with No Changes Other Medications cyclobenzaprine (cyclobenzaprine 10 mg Tab) 1 Tablets By Mouth 3 times a day as needed for spasm. Refills: 0. diclofenac topical (Voltaren Gel 1% Gel) 1 Application Topical 4 times a day as needed for pain. Refills: 0. diflunisal (diflunisal 500 mg Tab) 1 Tablets By Mouth every 12 hours. Refills: 0. fluoxetine (FLUoxetine 60 mg oral tablet) 1 Tablets By Mouth every day. Refills: 1. ibuprofen (ibuprofen 800 mg Tab) 1 Tablets By Mouth 3 times a day. Refills: 0. lidocaine topical (Lidoderm 5% Patch) 1 Patches Topical every day. apply 12 hours on and 12 hours off daily. Refills: 0. metoclopramide (Reglan 10 mg Tab) 1 Tablets By Mouth every 6 hours. Refills: 0. naproxen (naproxen 500 mg Tab) 1 Tablets By Mouth 2 times a day. Take one tab by mouth two times a day. Refills: 0. naproxen (naproxen 500 mg Tab) 1 Tablets By Mouth 2 times a day for 10 Days. Refills: 0. ondansetron (Zofran 4 mg Tab) 1 Tablets By Mouth every 6 hours as needed Nausea. Take one tab by mouth every six hours as needed for nausea. Refills: 0. tizanidine (tiZANidine 2 mg Tab) 1 Tablets By Mouth every 8 hours for 7 Days. Refills: 0. PATIENT EDUCATION INFORMATION: Instructions: Hypokalemia; Flank Pain, Adult, Gbrl-yl-[id number]; Abdominal Pain, Adult, Rmkt-ql-[id number] Follow up: With: Address: When: Cheyanne [address], [address], [address] [address] Business (1) In 3 days 12/04/2023 DIAGNOSIS: 1:Hypokalemia; 2:Flank pain Normal [facility] ED Note-Nursingon 12-01-2023 ED Note-Nursing ED Note-Nursing Pt requesting pain medication, GINGER Weinstein aware. No further orders at this time. Normal [facility] ED Note-Physicianon 12-01-19 ED Note-Physician ED Note-Physician Basic Information Time Seen: Kristie Bsos PA-C 12/01/2023 11:58 Chief Complaint swelling in feet and legs, bilateral flank pain that started last night. decreased urinary output. took naproxen around 1000 today. History of Present Illness This patient presents emergency department chief complaint of swelling in her feet and her legs, bilateral flank pain that started last night, and decreased urinary output. The patient states she took a Naprosyn at 10:00 this morning. She denies any fevers. She states she did have some chills and sweats. She denies any urinary burning frequency or urgency. She denies constipation or diarrhea. She denies any chest pain or shortness of breath. Review of Systems Constitutional: Denies weight loss, fevers, chills, sweats, malaise Eyes: Denies visual changes, eye pain, double vision, scotomas, floaters ENT: Denies runny nose, epistaxis, sinus pain, ear pain, ringing in ears, tooth ache, sore throat, pain with swallowing Cardiovascular: Denies chest pain, shortness of breath, orthopnea, edema, palpitations, loss of consciousness, claudication. + Swelling of feet and legs Respiratory: Denies cough, sputum production, wheezing, hemoptysis, shortness of breath, dyspnea on exertion Gastrointestinal: Denies abdominal pain, unintentional weight loss, difficulty swallowing, indigestion, bloating, cramping, loss of appetite, nausea, vomiting, diarrhea, constipation, hematochezia, melena. + Bilateral flank pain Genitourinary: Denies any incontinence of urine, dysuria, hematuria, nocturia, polyuria, hesitancy, frequency, urgency, burning. + Decreased urinary output Musculoskeletal: Denies joint pain, morning stiffness, joint swelling, decreased range of motion, crepitus Integumentary: Denies any pruritus, rashes, lesions, wounds, petechiae Neurologic: Denies any changes in sight, smell, hearing, taste, seizures, headache, paresthesia, numbness, weakness, balance disturbance Psychiatric denies any depression, change in sleep patterns, anxiety, difficulty concentrating, paranoia, anhedonia, lack of energy, bel Hematologic/lymphatic: Denies any purpura, petechiae, excessive bleeding, bruising Physical Exam Vitals & Measurements T: 36.6 ?C(Oral) HR: 72(Peripheral) RR: 18 BP: 124/82 SpO2: 97% HT: 160 cm WT: 115.25 kg BMI: 45.02 Vital signs and nursing notes reviewed. General: Awake, alert, NAD. HEENT: Head is normocephalic, atraumatic. PERRL. EOMI. Sclerae are anicteric. External ears are normal. TMs are intact bilaterally. Canals are clear bilaterally. Nares are patent bilaterally. Oral mucosa is pink and moist. No lesions noted. Tongue protrudes in midline. Uvula rises with phonation. Neck is supple, no no palpable adenopathy. No JVD. Trachea is midline. Thorax: Symmetrical rise and fall Lungs: Clear to auscultation throughout all gonzalez, no wheezes, no crackles Heart: Regular rate and rhythm. No murmur, gallop, or rub Abdomen: No tenderness on palpation. Bowel sounds are present active and normal. No organomegaly. No palpable masses. No CVA tenderness. Extremities: Motor sensory pulses intact x4 extremities. No lower extremity edema. No edema of the legs or feet. Skin: No lesions, rashes, ulcerations. No bruising or petechiae. Color appropriate, warm and dry Neuro: No oriented x3, no focal neuro deficits Psych: Mood and affect are normal Medical Decision Making MEDICAL DECISION MAKING Number and Complexity of Problems Differential Diagnosis: Acute lower urinary tract infection, FANY, dehydration, electrolyte imbalance, ureteral lithiasis, hydronephrosis, congestive heart failure MDM Data External documents reviewed: Not applicable My EKG interpretation: Noted in chart if applicable My CT interpretation: Noted in chart if applicable My X-ray interpretation: Noted in chart if applicable My Ultrasound interpretation: Not applicable Decision rules/scores evaluated: Noted in chart if applicable Discussed with: Not applicable Treatment and Disposition ED Course: The patient was interviewed and examined. The appropriate ER workup was initiated. EKG was normal sinus rhythm at a rate of 73, no STEMI. White blood count 9.6, hemoglobin 12.1, hematocrit 35.4, platelet 352. Sodium 141, potassium 3.4, chloride 107, CO2 28, BUN 12, creatinine 0.7, glucose 101, calcium 8.8. Remainder of the CMP is unremarkable. Lipase is normal at 24. Lactic acid is normal at 0.7. 0 troponin is normal at 3.50. UA was remarkable for extremely turbid clarity, present amorphous crystals. CT scan of the abdomen pelvis was with no acute intra-abdominal process, no significant change from prior CT scan. The patient was given potassium 40 mill equivalents orally here in the department. I discussed the results of the workup with the patient. I discussed the discharge diagnosis, and need for follow-up with her primary care physician. Patient will be discharged to home in stable condition. She is to return to (more content not included)... Normal [facility] Comment on above: Result Comment: Elec tronically Signed By: Kristie Boss PA-C\.br\Date and Time Signed: 12/01/23 14:25 EDT\.br\Electronically Co-Signed By: Balbina Bryant M.D.\.br\Date and Time Co-Signed: 12/01/23 19:41 EDT ED Patient Summaryon 024 ED Patient Summary ED Patient Summary [place] [id number] Patient Discharge Instructions Person Information Name: JERAD TRACY Age: 48 Years Arrival Date: 12/01/2023 11:42:40 Discharge Diagnosis: 1:Hypokalemia; 2:Flank pain Primary Care Physician: Cheyanne Rincon Provider Information Primary Provider: Balbina Bryant M.D. Advanced M[employer]er Blasting:None The exam and treatment you received in the Emergency Department were for an urgent problem and are not intended as complete care. It is important that you follow up with a doctor, nurse practitioner, or physician?s per diem physical therapist assistant for ongoing care. If your symptoms become worse or you do not improve as expected and you are unable to reach your usual health care provider, you should return to the Emergency Department. We are available 24 hours a day. JERAD TRACY has been given the following list of patient education materials, prescriptions and follow-up instructions: Follow-up Instructions: With: Address: When: Cheyanne Rosas [address] [facility], [address], [place] [id number] Business (1) In 3 days 12/04/2023 In the event that this physician does not participate in your insurance network, please consult with your insurance company to find a nearby participating provider. Patient Education Materials: Hypokalemia; Flank Pain, Adult, Btlu-rw-[id number]; Abdominal Pain, Adult, Zoei-uy-Aigc A MESSAGE TO ALL PATIENTS REGARDING OPIOIDS PRESCRIPTION OPIOIDS: WHAT YOU NEED TO KNOW Prescription opioids can be used to help relieve toeutyon-np-vspzdj pain and are often prescribed following a surgery or injury, or for certain health conditions. These medications can be an important part of the treatment but also come with serious risks. It is important to work with your healthcare provider to make sure you are getting the safest, most effective care. WHAT ARE THE RISKS AND SIDE EFFECTS OF OPIOID USE? Prescription opioids carry serious risks of addiction and overdose, especially with prolonged use. An opioid overdose, often marked by slowed breathing, can cause sudden . The use of prescription opioids can have a number of side effects as well, even when taken as directed: ? Tolerance?meaning you might need to take more of the medication for the same pain relief ? Physical dependence?meaning you have symptoms of withdrawal when a medication is stopped ? Increased sensitivity to pain ? Constipation ? Nausea, vomiting, and dry mouth ? Sleepiness and dizziness ? Confusion ? Depression ? Low levels of testosterone that can result in lower sex drive, energy, and strength ? Itching and sweating RISKS ARE GREATER WITH: ? History of drug misuse, substance use disorder, or overdose ? Mental health conditions (such as depression or anxiety) ? Sleep apnea ? Older age (65 years and older) ? Avoid alcohol while taking prescription opioids. Also, unless specifically advised by your health care provider, medications to avoid include: ? Benzodiazepines (such as Xanax or Valium) ? Muscle relaxants (such as Soma or Flexeril) ? Hypnotics (such as Ambien or Lunesta) ? Other prescription opioids KNOW YOUR OPTIONS Talk to your health care provider about ways to manage your pain that don?t involve prescription opioids. Some of these options may actually work better and have fewer risks and side effects. Options may include: ? Pain relievers such as acetaminophen, ibuprofen, and naproxen ? Some medication that are also used for depression or seizures ? Physical therapy and exercise ? Cognitive behavioral therapy, a psychological, goal-directed approach, in which patients learn how to modify physical, behavioral, and emotional triggers of pain and stress. IF YOU ARE PRESCRIBED OPIOIDS FOR PAIN: ? Never take opioids in greater amounts or more often than prescribed. ? Follow up with your primary health care provider. o Work together to create a plan on how to manage your pain. o Talk about ways to help manage your pain that don?t involve prescription opioids. o Talk about any and all concerns and side effects. ? Help prevent misuse and abuse o Never sell or share prescription opioids. o Never use another person?s prescription opioids. ? Store prescription opioids in a secure place and out of reach of others (this may include visitors, children, friends, and family). ? Safely dispose of unused prescription opioids: Find your community drug take-back program or your pharmacy mail-back program, or flush them down the toilet, following guidance from the Food and Drug Administration (www.fda.gov/Drugs/Reso urcesForYou). ? Visit www.cdc.gov/drugoverdos e to learn about the risks of opioids abuse and overdose. ? If you believe you may be struggling with addiction, tell your health plant health care technician (more content not included)... Normal [facility] Epithelial cells.renal [#/ar ea] in Urine by Computer assisted methodOrdered By: Vlad Bhandari on 12-01-2023 Epithelial cells.renal Computer assisted (U) [#/Area] 1-2 [HPF] High 0-1 [facility] Epithelial cells.squamous [# /area] in Urine sediment by Automated countOrdered By: Vlad Bhandari on 12-01-2023 Epithelial cells.squamous Auto (Urine sed) [#/Area] 10-19 [HPF] High 0-2 [facility] Erythrocyte distribution wid th [Ratio] by Automated countOrdered By: SYSTEM SYSTEM on 12-01-2023 Erythrocyte distribution width (RBC) [Ratio] 14.1 % Normal 11.9-15.3 [facility] Comment on above: Performed By: #### U HCG, ADDONUAPLUS #### [facility] [address] [place] [address] [place] Erythrocytes [#/area] in Uri ne sediment by Automated countOrdered By: Vlad Bhandari on 12-01-2023 RBC Auto (Urine sed) [#/Area] 1-2 [HPF] 0-4 [facility] Erythrocytes [#/volume] in B lood by Automated countOrdered By: Vlad Bhandari on 12-01-2023 RBC (Bld) [#/Vol] 3.84 10*6/uL Normal 3.60-5.00 [facility] Comment on above: Performed By: #### U HCG, ADDONUAPLUS #### [facility] [address] [place] [address] [place] Glucose [Mass/volume] in Ser um or PlasmaOrdered By: Vlad Bhandari on 12-01-2023 Glucose [Mass/Vol] 104 mg/dL High 70-100 [facility] Comment on above: ADA recommended refe rence rangeRandom Glucose Reference Range is dependent on time and content of last meal. Glucose of more than 200 mg/dL in a nonstressed, ambulatory subject supports the diagnosis of Diabetes Mellitus. Result Comment: Kersey om Glucose Reference Range is dependent on time and content of last meal. Glucose of more than 200 mg/dL in a nonstressed, ambulatory subject supports the diagnosis of Diabetes Mellitus. ADA recommended reference range Performed By: #### U HCG, ADDONUAPLUS #### [facility] [address] [place] [address] [place] Glucose [Mass/volume] in Uri ne by Test stripOrdered By: Vlad Bhandari on 12-01-2023 Glucose Test strip (U) [Mass/Vol] Normal mg/dL Normal [facility] HCG ( test) IAemilyi d Ql (U)Ordered By: Vlad Bhandari on 12-01-2023 HCG ( test) Ql (U) Negative [facility] HCG,Urineon 12-01-2023 Beta HCG ( test) Ql (U) Negative Normal [facility] Comment on above: Order Comment: Name Collection Type:: Clean-Voided Midstream Result Comment: PERF ORMED BY: [facility] [address] [place] [address] PATHOLOGIST RING MAKING 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 JASON WILSON M.D. Performed By: #### U HCG, ADDONUAPLUS #### [address] HEMATOLOGYOrdered By: SYSTEM SYSTEM on 12-01-2023 Basophils/100 WBC (Bld) 0.2 % Normal 0.0 - 2.0 % [facility] Basophils/Leukocytes Auto (Bld) [Pure # fraction] 0.0 E9/L Normal 0.0 - 0.2 E9/L [facility] Eosinophils (Bld) [#/Vol] 0.3 E9/L Normal 0.0 - 0.5 E9/L [facility] Eosinophils/100 WBC (Bld) 3.1 % Normal 0.0 - 8.0 % [facility] Hematocrit (Bld) [Volume fraction] 35.4 % Normal 34.0 - 46.0 % [facility] Hemoglobin (Bld) [Mass/Vol] 12.1 g/dL Normal 12.0 - 16.0 gm/dL [facility] Lymphocytes (Bld) [#/Vol] 1.9 E9/L Normal 1.0 - 4.0 E9/L [facility] Lymphocytes/100 WBC (Bld) 20.2 % Normal 14.0 - 50.0 % [facility] MCH (RBC) [Entitic mass] 31.9 pg Normal 27.0 - 34.0 pg [facility] MCHC (RBC) [Mass/Vol] 34.3 g/dL Normal 31.4 - 36.0 gm/dL [facility] MCV (RBC) [Entitic vol] 93.0 fL Normal 80.0 - 100.0 fL [facility] Monocytes (Bld) [#/Vol] 0.6 E9/L Normal 0.2 - 1.0 E9/L [facility] Monocytes/100 WBC (Bld) 6.1 % Normal 4.0 - 14.0 % [facility] Neutrophils (Bld) [#/Vol] 6.8 E9/L Normal 2.0 - 7.5 E9/L [facility] Neutrophils/100 WBC (Bld) 70.4 % Normal 36.0 - 75.0 % [facility] Platelet 352.0 E9/L Normal 150.0 - 500.0 E9/L [facility] Platelet mean volume (Bld) [Entitic vol] 7.6 fL Normal 6.4 - 10.8 fL [facility] RBC (Bld) [#/Vol] 3.8 E12/L Low 4.3 - 5.9 E12/L [facility] WBC corrected for nucl RBC Auto (Bld) [#/Vol] 9.6 E9/L Normal 4.0 - 11.0 E9/L [facility] Hematocrit [Volume Fraction] of Blood by Automated countOrdered By: Vlad Bhandari on 12-01-2023 Hematocrit (Bld) [Volume fraction] 35.8 % Normal 34.0-46.4 [facility] Comment on above: Performed By: #### U HCG, ADDONUAPLUS #### [facility] [address] [place] [address] Hemoglobin Test strip Ql (U) Ordered By: Vlad Bhandari on 12-01-2023 Hemoglobin Ql (U) Negative Negative [facility] Hemoglobin [Mass/volume] in BloodOrdered By: Vlad Bhandari on 12-01-2023 Hemoglobin (Bld) [Mass/Vol] 12.0 g/dL Normal 11.8-15.4 [facility] Comment on above: Performed By: #### U HCG, ADDONUAPLUS #### [facility] [address] Hep Func Panelon 12-01-2023 Albumin [Mass/Vol] 3.9 g/dL Normal 3.3-5.0 [facility] Comment on above: Performed By: #### 2 [id number] #### [facility] [address] [place] [address] Albumin/Globulin (S) [Mass conc ratio] 1.3 Normal 1.1-2.2 [facility] Comment on above: Performed By: #### 2 [id number] #### [facility] [address] [place] [address] ALP [Catalytic activity/Vol] 70 Int._Unit/L Normal 21-98 [facility] Comment on above: Performed By: #### 2 [id number] #### [facility] [address] [place] [address] ALT No additional P-5'-P [Catalytic activity/Vol] 23 Int._Unit/L Normal 6-46 [facility] Comment on above: Performed By: #### 2 [id number] #### [facility] [address] [place] [address] AST [Catalytic activity/Vol] 24 Int._Unit/L Normal 5-43 [facility] Comment on above: Performed By: #### 2 [id number] #### [facility] [address] [place] [address] Bilirubin [Mass/Vol] 0.4 mg/dL Normal 0.0-1.1 [facility] Comment on above: Performed By: #### 2 [id number] #### [facility] [address] [place] [address] Bilirubin.direct [Mass/Vol] 0.1 mg/dL Normal 0.0-0.4 [facility] Comment on above: Performed By: #### 2 [id number] #### [facility] [address] [place] [address] Bilirubin.indirect [Mass or moles/Vol] 0.3 mg/dL Normal 0.1-0.9 [facility] Comment on above: Performed By: #### 2 [id number] #### [facility] [address] [place] [address] Globulin (S) [Mass/Vol] 3.1 g/dL Normal 1.4-4.0 [facility] Comment on above: Performed By: #### 2 [id number] #### [facility] [address] [place] [address] Protein [Mass/Vol] 7.0 g/dL Normal 6.0-7.8 [facility] Comment on above: Performed By: #### 2 [id number] #### [facility] [address] [place] [address] Hepatic Panelon 12-01-2023 Bilirubin,Indirect 0.3 mg/dL Normal [facility] Comment on above: Performed By: #### U HCG, ADDONUAPLUS #### [address] Bilirubin.indirect [Mass/Vol] 0.00 mg/dL Low 0.03-0.18 [facility] Comment on above: Result Comment: If t he DBIL is less than 0.1, IBIL is not able to be calculated. Performed By: #### U HCG, ADDONUAPLUS #### [address] Hepatic PanelOrdered By: SYS TEM SYSTEM on 12-01-2023 Albumin [Mass/Vol] 3.9 g/dL Normal 3.5-5.7 [facility] Comment on above: Performed By: #### U HCG, ADDONUAPLUS #### [address] Hyaline casts [#/area] in Ur ine sediment by Automated countOrdered By: Vlad Bhandari on 12-01-2023 Hyaline casts Auto (Urine sed) [#/Area] 0-8 [LPF] 0-8 [facility] Ketones [Presence] in Urine by Test stripOrdered By: Vlad Bhandari on 12-01-2023 Ketones Ql (U) Negative Normal Negative [facility] Comment on above: Order Comment: Name Collection Type:: Clean-Voided Midstream Performed By: #### U HCG, ADDONUAPLUS #### [address] Lactic Acidon 12-01-2023 Lactic Acid Lvl 0.7 mmol/L Normal 0.5-2.2 [facility] Comment on above: Performed By: #### 2 [id number] #### [facility] [address] [place] [address] Leukocyte esterase [Presence ] in Urine by Test stripOrdered By: Vlad Bhandari on 12-01-2023 Leukocyte esterase Test strip Ql (U) Negative Normal Negative [facility] Comment on above: Order Comment: Name Collection Type:: Clean-Voided Midstream Performed By: #### U HCG, ADDONUAPLUS #### [facility] [address] [place] [address] [facility] Leukocytes [#/area] in Urine sediment by Automated countOrdered By: Vlad Bhandari on 12-01-2023 WBC Auto (Urine sed) [#/Area] 1-2 [HPF] 0-4 [facility] Leukocytes [#/volume] correc lisa for nucleated erythrocytes in Blood by Automated counOrdered By: Vlad Bhandari on 12-01-2023 WBC corrected for nucl RBC Auto (Bld) [#/Vol] 8.8 10*3/uL 3.8-11.6 [facility] Leukocytes [#/volume] in Blo od by Automated countOrdered By: Vlad Bhandari on 12-01-2023 WBC (Bld) [#/Vol] 8.8 10*3/uL Normal 3.8-11.6 [facility] Comment on above: Performed By: #### U HCG, ADDONUAPLUS #### [facility] [address] [place] [address] [place] Lipase Levelon 12-01-2023 Lipase [Catalytic activity/Vol] 24 U/L Normal 13-58 [facility] Comment on above: Performed By: #### 2 [id number] #### [facility] [address] [place] [address] Lipase [Enzymatic activity/v olume] in Serum or PlasmaOrdered By: Vlad Bhandari on 12-01-2023 Lipase [Catalytic activity/Vol] 23.0 U/L Normal 11.0-82.0 [facility] Comment on above: Result Comment: PERF ORMED BY: [place] [address] PATHOLOGIST RING MAKING 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 JASON WILSON M.D. Performed By: #### U HCG, ADDONUAPLUS #### [address] Lymphocytes [#/volume] in Bl ood by Automated countOrdered By: Vlad Bhandari on 12-01-2023 Lymphocytes (Bld) [#/Vol] 2.4 10*3/uL Normal 1.00-4.8 [facility] Comment on above: Performed By: #### U HCG, ADDONUAPLUS #### [place] [address] [place] Lymphocytes/100 leukocytes i n Blood by Automated countOrdered By: Vlad Bhandari on 12-01-2023 Lymphocytes/100 WBC (Bld) 27.1 % Normal . [facility] Comment on above: Performed By: #### U HCG, ADDONUAPLUS #### [place] [address] [place] MCH [Entitic mass] by Automa lisa countOrdered By: Vlad Bhandari on 12-01-2023 MCH (RBC) [Entitic mass] 31.2 pg Normal 24.7-34.3 [facility] Comment on above: Performed By: #### U HCG, ADDONUAPLUS #### [address] MCHC Auto (RBC) [Mass/Vol]Or dered By: Vlad Bhandari on 12-01-2023 MCHC (RBC) [Mass/Vol] 33.5 g/dL 32.0-35.0 [facility] MCV [Entitic volume] by Auto mated countOrdered By: Vlad Bhandari on 12-01-2023 MCV (RBC) [Entitic vol] 93.2 fL Normal 80-100 [facility] Comment on above: Performed By: #### U HCG, ADDONUAPLUS #### [place] [address] [place] Monocyte distribution width [Entitic volume] in Blood by AutomatedOrdered By: Vlad Bhandari on 12-01-2023 Monocyte distribution width Auto (Bld) [Entitic vol] 24.15 % High 0.00-20.00 [facility] Comment on above: For adults in ED, MD W > 20.0 may be associated with a higher risk of sepsis during the first 12 hrs of hospital admission Mucus [Presence] in Urine by AutomatedOrdered By: Vlad Bhandari on 12-01-2023 Mucus Auto Ql (U) 2+ [LPF] Abnormal [facility] Neutrophils [#/volume] in Bl ood by Automated countOrdered By: Vlad Bhandari on 12-01-2023 Neutrophils (Bld) [#/Vol] 5.4 10*3/uL Normal 1.8-7.7 [facility] Comment on above: Performed By: #### U HCG, ADDONUAPLUS #### [facility] [address] Nitrite Test strip Ql (U)Ord ered By: Vlad Bhnadari on 12-01-2023 Nitrite Ql (U) Negative Negative [facility] No Panel InformationOrdered By: Vlad Bhandari on 12-01-2023 Estimated GFR (CKD-EPI) > 60.0 mL/Min [facility] Creatinine Clearance (Chem 116.43 [facility] Nucleated erythrocytes [Pres ence] in Blood by Automated countOrdered By: Vlad Bhandari on 12-01-2023 Nucleated RBC Auto Ql (Bld) 0.0 /100{WBC} 0-0.5 [facility] Platelet mean volume [Entiti c volume] in Blood by Automated countOrdered By: Vlad Bhandari on 12-01-2023 Platelet mean volume (Bld) [Entitic vol] 8.7 fL Normal 6.3-10.7 [facility] Comment on above: Performed By: #### U HCG, ADDONUAPLUS #### [facility] [address] [place] [address] [place] Platelets [#/volume] in Bloo d by Automated countOrdered By: Vlad Bhandari on 12-01-2023 Platelets (Bld) [#/Vol] 368 10*3/uL Normal 150-450 [facility] Comment on above: Performed By: #### U HCG, ADDONUAPLUS #### [address] Potassium [Moles/volume] in Serum or PlasmaOrdered By: Vlad Bhandari on 12-01-2023 Potassium [Moles/Vol] 3.7 mmol/L Normal 3.5-5.1 [facility] Comment on above: Performed By: #### U HCG, ADDONUAPLUS #### [address] Protein Test strip (U) [Mass /Vol]Ordered By: Vlad Bhandari on 12-01-2023 Protein (U) [Mass/Vol] Trace mg/dL High Negative [facility] Protein [Mass/volume] in Ser um or PlasmaOrdered By: Vlad Bhandari on 12-01-2023 Protein [Mass/Vol] 6.9 g/dL Normal 6.4-8.9 [facility] Comment on above: Performed By: #### U HCG, ADDONUAPLUS #### [address] Serum globulin measurement b y calculation (mass/volume)Ordered By: Vlad Bhandari on 12-01-2023 Globulin (S) [Mass/Vol] 3.0 g/dL Normal [facility] Comment on above: Performed By: #### U HCG, ADDONUAPLUS #### [facility] [address] [place] [address] Serum or plasma albumin/glob ulin mass ratioOrdered By: SYSTEM SYSTEM on 12-01-2023 Albumin/Globulin [Mass ratio] 1.3 {ratio} Normal [facility] Comment on above: Performed By: #### U HCG, ADDONUAPLUS #### [address] Serum or plasma anion gap de terminationOrdered By: Vlad Bhandari on 12-01-2023 Anion gap [Moles/Vol] 11.8 mmol/L Normal 6.0-15.0 [facility] Comment on above: Performed By: #### U HCG, ADDONUAPLUS #### [facility] [address] [place] [id number] [facility] Serum or plasma non-glucuron idated bilirubin measurement (mass/volume)Ordered By: Vlad Bhandari on 12-01-2023 Bilirubin.indirect [Mass/Vol] 0.3 mg/dL [facility] Sodium [Moles/volume] in Ser um or PlasmaOrdered By: SYSTEM SYSTEM on 12-01-2023 Sodium [Moles/Vol] 141 mmol/L Normal 136-145 [facility] Comment on above: Performed By: #### U HCG, ADDONUAPLUS #### [facility] [address] [place] [id number] [facility] Specific gravity Test strip (U) [Rel density]Ordered By: Vlad Bhandari on 12-01-2023 Specific gravity (U) [Rel density] 1.026 1.001-1.030 [facility] Troponin 0 Hr.on 12-01-2023 Troponin HS 3.50 pg/mL Low 10.10-27.10 [facility] Comment on above: Result Comment: The 95% CI (Confidence Interval) PPV (Positive Predictive Value) for myocardial infarction in females is 38 pg/mL, in males 51 pg/mL. The results should be used in conjunction with clinical conditions of myocardial infarction. (Access High Sensitivity Troponin I Instructions For Use, Katlyn Edson, October 2017) Performed By: #### 1 [id number] #### [facility] [address] [place] [address] UA with Cult Rflxon 12-01-19 24 Bilirubin Ql (U) Negative Normal Negative [facility] Comment on above: Performed By: #### 4 [id number] #### [facility] [address] [place] [address] Clarity (U) Ex.Turbid Abnormal Clear [facility] Comment on above: Performed By: #### 4 [id number] #### [facility] [address] [place] [address] Color (U) Yellow Normal Yellow [facility] Comment on above: Result Comment: Micr oscopic readings are only performed on those samples that meet specific criteria set forth by [facility]. Performed By: #### 4 [id number] #### [facility] [address] [place] [address] Crystals.amorphous Computer assisted Ql (U) Present Abnormal [facility] Comment on above: Performed By: #### 4 [id number] #### [facility] [address] [place] [address] Epithelial cells.squamous Auto (Urine sed) [#/Area] 0-2 Invalid Interpretation Code [facility] Comment on above: Performed By: #### 4 [id number] #### [facility] [address] [place] [address] Glucose Ql (U) Negative Normal Negative [facility] Comment on above: Performed By: #### 4 [id number] #### [facility] [address] [place] [address] Hemoglobin Auto test strip (U) [Mass/Vol] Negative Normal Negative [facility] Comment on above: Performed By: #### 4 [id number] #### [facility] [address] [place] [address] Ketones Auto test strip Ql (U) Negative Normal Negative [facility] Comment on above: Performed By: #### 4 [id number] #### [facility] [address] [place] [address] Leukocyte esterase Auto test strip Ql (U) Negative Normal Negative [facility] Comment on above: Performed By: #### 4 [id number] #### [facility] [address] [place] [address] Mucus Auto Ql (U) Negative Normal Negative [facility] Comment on above: Performed By: #### 4 [id number] #### [facility] [address] [place] [address] Nitrite Auto test strip Ql (U) Negative Normal Negative [facility] Comment on above: Performed By: #### 4 [id number] #### [facility] [address] [place] [address] pH (U) 8.0 [pH] Invalid Interpretation Code 5.0-9.0 [facility] Comment on above: Performed By: #### 4 [id number] #### [facility] [address] [place] [address] Protein Ql (U) Negative Normal Negative [facility] Comment on above: Performed By: #### 4 [id number] #### [facility] [address] [place] [address] Specific gravity (U) [Rel density] 1.018 Invalid Interpretation Code 1.005-1.030 [facility] Comment on above: Performed By: #### 4 [id number] #### [facility] [address] [place] [address] Urobilinogen (U) [Mass/Vol] Negative Normal Negative [facility] Comment on above: Performed By: #### 4 [id number] #### [facility] [address] [place] [address] Type of Urine collection method Clean Catch Normal [facility] Comment on above: Performed By: #### 4 [id number] #### [facility] [address] [place] [address] URINALYSISOrdered By: SYSTEM SYSTEM on 12-01-2023 Bilirubin Ql (U) Negative Normal Negativemg/ d L [facility] UA Auto SS Clarity (U) Ex.Turbid *ABN* (12/01/23 12:57 PM) Invalid Interpretation Code Clear [facility] UA Auto SS Color (U) Yellow 1 (12/01/23 12:57 PM) Normal Yellow [facility] UA Auto SS Comment on above: Interpretive Data: M icroscopic readings are only performed on those samples that meet specific criteria set forth by [facility]. Crystals.amorphous Computer assisted Ql (U) Present graded/HPF Invalid Interpretation Code [facility] UA Auto SS Epithelial cells.squamous Auto (Urine sed) [#/Area] 0-2 graded/HPF Invalid Interpretation Code [facility] UA Auto SS Glucose Ql (U) Negative Normal Negativemg/d L [facility] UA Auto SS Hemoglobin Auto test strip (U) [Mass/Vol] Negative Normal Negativemg/d L [facility] UA Auto SS Ketones Auto test strip Ql (U) Negative Normal Negativemg/d L [facility]A Auto SS Leukocyte esterase Auto test strip Ql (U) Negative Normal NegativeLeu/ uL [facility] UA Auto SS Mucus Auto Ql (U) Negative Normal Negativegr ad ed/LPF [facility] UA Auto SS Nitrite Auto test strip Ql (U) Negative Normal Negativemg/d L [facility] UA Auto SS pH (U) 8.0 *NA* (12/01/23 12:57 PM) Invalid Interpretation Code 5.0 - 9.0 [facility] [facility] UA Auto SS Protein Ql (U) Negative Normal Negativemg/d L [facility] UA Auto SS Specific gravity (U) [Rel density] 1.018 *NA* (12/01/23 12:57 PM) Invalid Interpretation Code 1.005 - 1.030 [facility] UA Auto SS Urobilinogen (U) [Mass/Vol] Negative Normal Negativemg/d L [facility] [facility] UA Auto SS URINALYSISOrdered By: Kwan Boss on 12-01-2023 UA Spec Desc Clean Catch (12/01/23 12:57 PM) Normal [facility] UA Auto SS Urea nitrogen [Mass/volume] in Serum or PlasmaOrdered By: Vlad Bhandari on 12-01-2023 Urea nitrogen [Mass/Vol] 14 mg/dL Normal 7-25 [facility] Comment on above: Performed By: #### U HCG, TONYONUAPLUS #### [facility] [address] Urine appearanceOrdered By: Vlad Bhandari on 12-01-2023 Appearance (U) Clear Normal Clear [facility] Comment on above: Order Comment: Name Collection Type:: Clean-Voided Midstream Performed By: #### U HCG, ADDONUAPLUS #### [facility] [address] [place] [address] [place] Urobilinogen Test strip (U) [Mass/Vol]Ordered By: Vlad Bhandari on 12-01-2023 Urobilinogen (U) [Mass/Vol] 3 mg/dL High Normal [facility] eGFRon 12-01-2023 eGFR 107 mL/min/1.73 m2 Normal >=59 [facility] Comment on above: Order Comment: Order added by Discern Expert. Performed By: #### 1 [id number] #### [facility] [address] [place], [place] [address] pH of Urine by Test stripOrd ered By: Vlad Bhandari on 12-01-2023 pH (U) 6.5 [pH] Normal 5.0-9.0 [facility] Comment on above: Order Comment: Name Collection Type:: Clean-Voided Midstream Performed By: #### U HCG, ADDONUAPLUS #### [facility] [address] [place] [address] [facility] Coding Summaryon 11-29-2023 Coding Summary HTMLBase 64 RzzoyvazWPi0hFx+PGhlYWQ +JA1NNCQyV55aqRPugG3fD7 NMTElOSywgQVBQTElOSyIgb yZfLV4axYDfQXIk IC8+ST5eHVSlTgajlSDmu6K 9yZT0D11nvu2jXQjqqUQ8YB FgWjGxbklpq2lfrVl3SVnjI mluOyBt CSOcnR01CGN3hO23Cn66kXL vrNWlj0fvsXp7AvRzQLNhOE K2eRiaZLqyn6XlPZHkN99ob MPtv3D0 YSMydUnxyZZdGsOctRW4gO4 gOUjawpkle9cjyqyvSbw4ce 15bHJpc9Q6iUH4D2NaeqJ2H GJvbGQg UkucxMPMvJ3ohftiw7qosdw wFkRqSGRpKOf1LDx2BENikD dsNcMkHW41BPA4KMAvnwYiS 2FsLWFs iBvuZfZ8z6O6Vm4GC7AWZke pO8XSNJDNBMjgjLS+PC90cj 03S8PzYrvzDwn1SRSyMFY4j GW5xT2k FINnDRqbt8Y5jJE6D3XzehA kci1nn0kzBHTsINldH26wpE Vaf4Q4AGEueXT6KYKzgTopT iBzaG93 Oyc+WITlmEetd1FoIeeww2c be1ujsQi2HjqwKOEnscTkpJ cpVBY0c5WaZe0bYHYuoYD8j EZ5cY5t VuKxZmX3OFtsT149BkZqeFW nPsfuQ65xX8PofGF+PHRyPj n9BZUjbPgjRZ1dY5LoPCNfx mctbGVm dSaeUQ9rXFJhjqnrYDTyiI7 zJDAyD2v7UeGiMmX4XXwhO0 MvPUYenayvMd43kC1iExYrI eW1LCre R8BgizM9EIKpbWJmLSwcVHA 6I13xa0V7LHDrWCBrCLE9aU L1zV4leUtegbgqyKHreZvkl mVydGlj DEjqYRizH034YKXnoPdvXtR vZGluZyBEYXRlOiAgMDkvMD YvMjAyNDwvdGQ+OBLjOLL2z WxlPSAn eCQdYZqtNx2atFjtnDaoOT6 rENHwybskXQEyeK9uQFBcjK YyvSoiGI2yMYZkpsjuc385E iAxMHB0 UIZkeXMmR9QhkM2lHoOgBRH xYZKfU7HpoVVhSIvmZ944RD yqYsG8DNHaaqJuK9PsFRPwa WduOiB0 n4W0Ds6Ol9LuoxeqJ6WgrXM bImAbPzpmQRp3P8PsVrtvqW I+TO11XHRhUB51ROa7MYA8v WxlPSdi MYChQ3KwbI7dMhUiICAoBIY kOyc+PHRhYmxlIHdpZHRoPS haHTYuChTneCskJG4wSf3jY GVyLWNv tQtsuBDtHcLxm9fwJTTkMMp tCQ8nrItuE4LxlGS6WVAvl7 y8Yf09O48aO7HkkKL+PGNvb KQ5bCE1 lH3tEpRtAgQ5NAzfW963XkR mkYByVpsdf7svg2gosJi7Ip V2MEOrvbKcsNqvPNG4b3EoH r78D64b IHdpZHRoPSIxNSUiIHZhbGl oot8sjV9eJi3+IZHruLA8nP L5lK6wExEuYmQ1MVcvE032S nRvcCIv Ifbnb4smz5szpSt2VhFsVUV wufWbuYrnEAF8l4EgDn75A0 ConEkpc7TdDma5ny19uDWdf 5B7qBI4 B4RcCXBugivdxIFxtIieOF8 eJSDbsrezVYNdcN4bFQAeV5 y1JvVnCbX5DDqgF4SmygJ2R GJvbGQg ZRVugPTSjG0dowhlr7mtyvg kOmOaMESgHUx2FAt7QPQreB uvChSbAEC8SoQ8OAO6jJMhf X2qgTay nvxdcF2lEzf+YMB0hVYweOQ VVH9wHqlaoNO+JFUzJZW5vN zcUEtcXNCaeX6zKAAaY1i2U iAwLjA1 ONwyY4PjokM5GLTwiRGnQDM uqSJRxB9sjeejy9ubohnzSj RmEZOgLTu3IJo4DABioOyeW iBsZWZ0 CaZ5ERY9zVRniO2jfXltkht oiA2wXnb+IrhpcPwdFSY4SG p8N1HyEyp8YPKedOxnCV5nu GFkZGlu Sv5pcCchfJvwYS8uFXIyyed nm691HbQtb9vlLSRufRScOR sdGZH8C73jh8I1XLShYMXhQ RA9qRP7 sH4tcNzswqtzqZIfrWqnpdO syDxoFRxeIJgxU025MRBjgH ehNbKyUSx4L5HsBda0BGQtx FiqLS4g hJOpYOyePr0ypYmdeDvfUW0 dUAYlyhern436BaDtj4uwML KdxMFxAWgeAOC8V13tz9N2U CMwMDAw XGM4gAY6xS7gbXhdhfmorFB mdDsgdmVydGljYWwtYWxpZ2 75ALXzsDfhHkHumFa4N7TsB kp3EFBa pWtvQB7ciWNeLRbfKs0fvTi hzHvmAO2rCDUmfnmkd187Jn Ywz2fdOANuyCZgMBduVSM6J 95aj5Y1 KKMlSGYjSDE9lTT6tL5aqMq nbjogbGVmdDsgdmVydGljYW qdDRtfX838TYHabPjoKuRbg GllbnQg RDvaWCx9V1HdBwqgjRM+PC9 0NEShJC86jXDcvTNet3rqjX o6JtLvSTWmZYH4iDcfKQjho 3JkZXIt U76gtYPea7M6BNUgyKfcsXK tSaVdsXP1tW4oJWmnqkgif6 rbgqwqSyfai5ungf70bM38X 29sIHdp ZHRoPSIzMCUiIHZhbGlnbj0 piJ5rAh2+YZYymJK1kNW3dD 7cYQMkKfT3MThuO750IlQot CIvPjxj x3yiu4wrrVi2ToK8HKZbjtE trTczVJP5i8SlNp68J90aKD dpZHRoPSIyMCUiIHZhbGlnb a3bdS3r Ii8+AKYcsZD1aMC3rQ2vYxP aIeR4ZBxsZ273EqFfsWUxNa ihY63qH9EnwIV+GEEbOun9U CBzdHls WV1wwFMjBVlaRk7nGGA4AaN pUlKuZPgfW1WkKLOpyvhaay uhwCR2UUZpXEZoeM49Ed3si DogMTBw sOOHuQ3uhwrop7imylvnAgS mJMSeBFj5BPt6BZVxwJpvCp PwMMT0QdV3ZJH7yXOcdI9gs Glnbjog uI5aL8HlPPTteniaZa92jB4 kQjRjTiU5QPanUwi+TElFQi grINPJXMYLILXYPsuDYzS0J 9OuWhr9 CQJpaYpiON8meXJtCCokIt3 opZmmyXfyCY1gSDPqbbsoAG EevG8eQZUfwVGpnNrdEI0lP TBpbjtm r275CgNvQJH2GFWmiHJkX0P eoF4jPbKhNISqZHBcS6GccB QcBAyaN024PGhjAqZ0VEAyg zFqY3Kh UWSeiYviLaV4c7W1Jp9uPh2 dIE8lISq9MA86JJ08gGZlw8 L0bLT5E6ErADMelsjyctihe FY5UTNs MWVbiR72tJEtNJmzCh2as5Y 6g251MPPbPOQhiW26Eg9zhC koFFVqlJAGmY7nzcflq6vig jogIzAw HOLgYTv1PLn3ZWGcuQcwVjI yJMT5RvM0CIE5bXIxqO8kqR eoplmcjA6nIep+NDYgWWVhc kP1B1Tk Vty6TUChaOfyVL2lwJDrAKx zPg0poQuifYfmXL9aOYJvol ijKHQjwA8gNOLuyTFkzRpuL I3hZICk yuxke739VcKnKDL9IFJrnQI lY7EyjF6iPpRsFIGjGSZzR6 XnhKEwDEafU386JBukWzU7P HZlcnRp Y2ImJPKpbJaiAiN8d5T5Uq5 OKP8EQUG6D3PgMcn5TYPicL mgAG7liJEsENxoFv8suQohh LyhTR2f BRZkqqtfEIFpxK8lLDWxzKR wfSlvDY5uDNNvekhmy652Ij IxAKH9PBZflOPgI6RejN3gN iAjMDAw OSSeV7ZsbKSsBRdrB088PNf sVoA6ITQnfxLoB5UfAZPqyV hhRoI6i9Q8Gm4EtHPnM6VgH 8w8C5Vx PjwvdHI+EW41ETAkLD59nBI agZJsk7hryWb5UlGfVHRjVN L1lEogQAjcb3JfCEXvR77jb GIql4Z5 WCPqhIwugBUdViGgzGE1cB5 aLVhjvgozg1xanodaLjvak3 ipvy49mV96Y32fTGdsEMVpX SIzMCUi QDMerWidvz7tiE3cJt2+PGN ufWR2wLV2rX2dNfRrOtA8PU qaE366HmRknVRmIxktj9nxp 0aopAl1 XsQdFSTrdaSfuEyoMWA7g2G qVu25T78tHYojHWXpSXOzHO RrRRMkkXwzcw3ffV9pFd5+P E8yj6lu jh03tS67gUW+GAGhVTB3rYs jFUfgJNIubD2jQGboIzU7GQ NiAeEmnO50wFFmPLokNg5nq WdodDog CA6zNFKxnmjpl127BkUap7g dOTEzxHAxYTiaCUK9A32jv3 F8QPXwEKNoTGA8lZO2kE7xm Glnbjog bGVmdDsgdmVydGljYWwtYWx kM147QMVmaTtaOfDxwXUsV6 fctzXENX6fKmvxyDN+PHRkI CV4fSbq ZMrqHKRktP7bCTNjD4i0QjC mYxX1GScdQ0QqjaF0ZOOxuP YzJQFlfNXYdL1rwhfzs4evv jogIzAw BBQaLIx8MXq2MNJfdMtbFpG zPJE9JiD2XZC9xYQcxM1miR tzursliB1gZhe+RklOOjwvd GQ+PHRk YQR4lKpxAQbsAXEweE1hVJA vZ0t4BiKhZgA5XOfoG8Ppve Y5IMFgsQJgDQFerFZGwZ4bn bmgm1lw wywzPeOuTELlUVd9OGl2ZTX iwQdySgJbMAV9IrV9XOH5oB NxjG8spWkmzerycL3bBnv+T VJOOjwv dGQ+RHFrFXL4iMbdQHtdUGH ykK2eBCKuC7m9TpYcOyQ1MS rvV5UtavL6RFBhiPPhFRQbl ATViQ8w gzkuz0yzlrxfKcSaYRGfGYb 0WSi0MAQfgIlqSgVtNVR2Wx O2QID1yTGbuK4caNlolzyct G9wOyc+ EDR8FCH7PB46WR04N3SuNis vdGFibGU+PHRhYmxlIHdpZH YyNMmcLFWmBeBmtDlvWE0sI b5wNINx LWN (more content not included)... Normal [facility] ED Note-Physicianon 11-28-19 ED Note-Physician Normal [facility] Comment on above: Result Comment: Elec tronically Signed By: Manuel Naik PA-C\.br\Date and Time Signed: 11/27/23 23:56 EDT\.br\Electronically Co-Signed By: Balbina Bryant M.D.\.br\Date and Time Co-Signed: 11/28/23 07:50 EDT ED Clinical Summaryon 2023 ED Clinical Summary Normal [facility] ED Patient Education Noteon 11-27-2023 ED Patient Education Note Normal [facility] ED Patient Summaryon ED Patient Summary Normal [facility] SPLUMBWon 11-27-2023 [address] [place] [address] [place] Scan Report Signed with Addenda Patient Name: Jerad Tracy R ecord #: [id number] Date of : 1975 Account #:[id number] Age/Sex: 48 / F Location: ED Attending physician: Ordering Provider: Flex Veliz MD Date of Service: 11/26/23 Procedure(s): CT lumbar spine w con ADDENDUM: 100 ml Visipaque 320 IV contrast was administered. Addendum Dictated By: Sean Simmons MD Addendum Signed By: 11/27/23 1623 DD/ /16/999 TD/TT: 11/27/2307/17/1507 HISTORY: A spine stimulator place 09/23/2023 but removed 10/14/2023 secondary to infection. Incision has open backup. Concern for infection Time: 23:03 on 11/26/2023. TECHNIQUE: Axial images were obtained through the lumbar spine. Coronal and sagittal reconstruction imaging was performed. Individualized dose optimization techniques were used for the CT scan. Comparison: None. Findings: In the superficial subcutaneous tissues at the L2-3 level there is localized soft tissue density and overlying skin thickening consistent with a combination of postoperative changes and cellulitis. A distinct drainable abscess is not evident. The underlying bony structures appear intact. Vertebral body heights are maintained and the alignment appears within normal limits. No bony destruction Degenerative changes are seen in the lower lumbar spine predominately with disc space narrowing and a vacuum disc at L4-5 L5-S1 along with some reactive endplate changes. Impression: Soft tissue density extending from the scan into the subcutaneous tissues with overlying skin thickening extending from the L2 to the L3 level posteriorly most consistent with combination of recent post procedural changes and localized infection including changes of cellulitis. I do not identify a drainable abscess at this time and no subcutaneous gas is evident. Degenerative changes lower lumbar spine as discussed above Written provisional report of the study provided by outside reading service at 12:51 a.m. on 11/27/2023. Dictated By: Sean Simmons MD Signed By: 11/27/23 0953 DD/ 9 TD/TT: 11/27/23949 [employer] Orientator: [facility] Exam/Order Verified? Y Exam Explained to Patient/Family? Y Was Patient Shielded? N Is Patient ? N Consent Form Completed? Hx Last Menstrual Period: NO CHANCE Does Patient have a Diabetic Device? No Diabetic Device Type: Was the Diabetic Device Removed? If NO: was Removal Consent form completed? Patient was informed of radiation exposure prior to scan? Verified by Technologist:ANISHA Comment: [id number] cc: Flex Veliz MD PCP,No Normal [facility] Absolute eosinophil countOrd ered By: Flex Veliz on 11-26-2023 Histamine release from basophils measurement Histamine release from basophils measurement 0.0-0.4 [facility] Automated absolute lymphocyt e countOrdered By: Flex Veliz on 11-26-2023 Lymphocytes # (Auto) 2.6 10'3/uL 0.5-3.5 [facility] Automated absolute neutrophi l countOrdered By: Flex Veliz on 11-26-2023 Absolute Neutrophil 8.5 10'3/uL High 1.5-5.6 [facility] BUN venousOrdered By: Flex castillo on 11-26-2023 Urea nitrogen (BldV) [Mass/Vol] BUN venous 7-18 [facility] Basic Metabolic Panelon 09-0 Anion gap [Moles/Vol] 14 mmol/L High 5-13 [facility] Comment on above: Performed By: #### B M, CRP #### [facility] [address] [place] [address] Calcium [Mass/Vol] 9.1 mg/dL Normal 8.4-10.2 [facility] Comment on above: Performed By: #### B M, CRP #### [facility] [address] [place] [address] Chloride [Moles/Vol] 108 mmol/L High 98-107 [facility] Comment on above: Performed By: #### B M, CRP #### [facility] [address] [place] [address] CO2 [Moles/Vol] 20 mmol/L Low 22-29 [facility] Comment on above: Performed By: #### B M, CRP #### [facility] [address] [place] [address] Creatinine [Mass/Vol] 0.77 mg/dL Normal 0.57-1.11 [facility] Comment on above: Performed By: #### B M, CRP #### [facility] [address] [place] [address] GFR/1.73 sq M.predicted among non-blacks MDRD (S/P/Bld) [Vol rate/Area] mL/min/{1.73_m2} Normal mL/min/1.73m 2 [facility] Comment on above: Performed By: #### B M, CRP #### [facility] [address] [place] [address] Glucose [Mass/Vol] 105 mg/dL High 70-100 [facility] Comment on above: Performed By: #### B M, CRP #### [facility] [address] [place] [address] Potassium [Moles/Vol] 3.5 mmol/L Normal 3.5-5.1 [facility] Comment on above: Performed By: #### Martha M, CRP #### [facility] [address] [place] [address] Sodium [Moles/Vol] 142 mmol/L Normal 136-145 [facility] Comment on above: Performed By: #### Martha M, CRP #### [facility] [address] [place] [address] Urea nitrogen [Mass/Vol] 10 mg/dL Normal 7-18 [facility] Comment on above: Performed By: #### Martha M, CRP #### [facility] [address] [place] [address] Basophils Auto (Bld) [#/Vol] Ordered By: Flex Veliz on 11-26-2023 Basophils (Bld) [#/Vol] Automated basophil count Low 0.1-0.2 [facility] Basophils/100 WBC Auto (Bld) Ordered By: Flex Veliz on 11-26-2023 Basophils/100 WBC (Bld) Automated basophil % 0-1 [facility] Blood anion gapOrdered By: Seng Veliz on 11-26-2023 Anion gap (Bld) [Moles/Vol] Blood anion gap High 5-13 [facility] Blood erythrocytes count (nu mber/volume)Ordered By: Flex Veliz on 11-26-2023 RBC (Bld) [#/Vol] Blood erythrocytes count (number/volume) 3.85-4.88 [facility] Blood platelets count (numbe r/volume)Ordered By: Flex Veliz on 11-26-2023 Platelets (Bld) [#/Vol] Platelet count blood High 122-359 [facility] C Reactive Proteinon 024 C Reactive Protein 1.0 mg/dL High <0.6 [facility] Comment on above: Performed By: #### B M, CRP #### [place] [address] [facility] [place] [address] C reactive protein measureme ntOrdered By: Flex Veliz on 11-26-2023 C-Reactive Protein 1.0 mg/dL High <0.6 [facility] Calcium measurement (mass/vo lume)Ordered By: Flex Veliz on 11-26-2023 Calcium (Unsp spec) [Mass/Vol] Calcium measurement (mass/volume) 8.4-10.2 [facility] Complete Blood Count with Di ffon 11-26-2023 Basophils Absolute Auto 0.0 10'3/uL Low 0.1-0.2 [facility] Comment on above: Performed By: #### C BCD #### [place] [address] [facility] [place] [address] Basophils/100 WBC (Bld) 0 % Normal 0-1 [facility] Comment on above: Performed By: #### C BCD #### [place] [address] [facility] [place] [address] Eosinophils Absolute Auto 0.1 10'3/uL Normal 0.0-0.4 [facility] Comment on above: Performed By: #### C BCD #### [place] [address] [place] [address] Eosinophils/100 WBC (Bld) 1 % Low 2-5 [facility] Comment on above: Performed By: #### C BCD #### [place] [address] [place] [address] Erythrocyte distribution width (RBC) [Ratio] 13.2 % Normal 12.2-15.8 [facility] Comment on above: Performed By: #### C BCD #### [facility] [address] [place] [address] Hematocrit (Bld) [Volume fraction] 41.1 % Normal 34.6-44.1 [facility] Comment on above: Performed By: #### C BCD #### [place] [address] [place] [address] Hemoglobin (Bld) [Mass/Vol] 13.8 g/dL Normal 11.7-14.9 [facility] Comment on above: Performed By: #### C BCD #### [place] [address] [place] [address] Lymphocytes Absolute Auto 2.6 10'3/uL Normal 0.5-3.5 [facility] Comment on above: Performed By: #### C BCD #### [place] [address] [place] [address] Lymphocytes/100 WBC (Bld) 22 % Normal 20-35 [facility] Comment on above: Performed By: #### C BCD #### [place] [address] [place] [address] MCH (RBC) [Entitic mass] 31.1 pg Normal 27.8-33.2 [facility] Comment on above: Performed By: #### C BCD #### [place] [address] [place] [address] MCV (RBC) [Entitic vol] 92.6 fL Normal 83.0-97.4 [facility] Comment on above: Performed By: #### C BCD #### [facility] [address] [place] [address] Mean Corpuscular HGB Conc 33.6 g/dL Normal 32.7-34.8 [facility] Comment on above: Performed By: #### C BCD #### [place] [address] [place] [address] Monocytes Absolute Auto 0.7 10'3/uL Normal 0.2-0.8 [facility] Comment on above: Performed By: #### C BCD #### [facility] [address] [place] [address] Monocytes/100 WBC (Bld) 6 % Normal 4-12 [facility] Comment on above: Performed By: #### C BCD #### [facility] [address] [place] [address] Neutrophil # 8.5 10'3/uL High 1.5-5.6 [facility] Comment on above: Performed By: #### C BCD #### [facility] [address] [place] [address] Neutrophils/100 WBC (Bld) 71 % Normal 41-72 [facility] Comment on above: Performed By: #### C BCD #### [facility] [address] [place] [address] Platelet Count 400 10'3/uL High 122-359 [facility] Comment on above: Performed By: #### C BCD #### [facility] [address] [place] [address] Platelet mean volume (Bld) [Entitic vol] 9.7 fL Normal 7.6-10.6 [facility] Comment on above: Performed By: #### C BCD #### [facility] [address] [place] [address] Red Blood Count 4.44 10'6/uL Normal 3.85-4.88 [facility] Comment on above: Performed By: #### C BCD #### [facility] [address] [place] [address] White Blood Count 11.9 10'3/uL High 3.2-9.3 [facility] Comment on above: Performed By: #### C BCD #### [facility] [address] [place] [address] Creatinine (Bld) [Mass/Vol]O rdered By: Flex Veliz on 11-26-2023 Creatinine [Mass/Vol] Blood creatinine measurement (mass/volume) 0.57-1.11 [facility] EDon 11-26-2023 ED [facility] [address] [place] [address] Emergency Department Note Signed Patient Name: Jerad Tracy [address] #: [id number] Date of : 1975 Account #: [id number] Age/Sex: 48 / F Location: ED Attending physician: HPI - General Adult General Date of Visit: 11/26/23 Chief complaint: Back Pain/Injury Time Seen by Provider: 11/26/23 21:47 History of Present Illness HPI narrative: The patient is a 48 year old who presented to the Emergency Department with the complaint of back pain. Patient states that she has a history of herniated lumbar disks and that back in September she had a nerve stimulator placed for pain in her lower back which helped tremendously. However, she states that she developed a blood clot and infection around the area and that it needed to be removed. She states that she is due to have another one placed at the [facility] where she had her previous surgery. However, she states that she is having severe back pain over the incision currently as well as some pain shooting into the left leg which is not new. She notes that she has chronic numbness to bilateral thighs which has not changed. Denies any new numbness, saddle paresthesias, urinary retention, urine or bowel incontinence, trauma, fevers, chills, sweats, rash, or drainage from the incision. Home Meds and Allergies Home Medications ???Medication ???Instructions ???Recorded ???Confirmed ???Type acetaminophen 500 mg tablet 1,000 mg (2 x 500 mg) PO Q8H PRN 11/27/23 Rx (Tylenol Extra Strength) pain #30 tabs doxycycline hyclate 100 mg capsule 100 mg PO BID 10 days #20 caps 11/27/23 Rx ibuprofen 800 mg tablet 800 mg PO Q8H PRN pain #30 tabs 11/27/23 Rx Allergies Allergy/AdvReac Type Severity Reaction Status Date / Time hydrocodone Allergy Unknown Verified 11/27/23 00:26 Penicillins Allergy Unknown Verified 11/27/23 00:26 Review of Systems Narrative: Constitutional: Denies fevers or chills Eyes: Denies any blurred vision or change in vision HEENT: Denies any neck pain or stiffness Cardiovascular: Denies any chest pain, palpitations, shortness of breath, edema Respiratory: Denies any dyspnea, cough, wheezing GI: Denies abdominal pain, nausea, vomiting : MSK: Positive for low back pain Skin: Positive for opening of previous midline back incision with surrounding redness Neurological: Denies any weakness or abnormal gait Psych: Heme: Denies any anticoagulant use or easy bruising Allergic/immunologic: History PFSH Medical History (Updated 11/27/23 @ 01:17 by Flex Veliz MD) Bulging discs Surgical History (Updated 11/27/23 @ 00:31 by Raquel Jennings) H/O: hysterectomy Social History History Provided by: Patient Preferred Language: Serbian Usual Living Arrangement: With Spouse/Significant Other Smoking Status: Current Every Day Smoker Years Smoked: 30 Packs Per Day: 0.5 Other Form of Tobacco Used: Never Used Second Hand Tobacco Smoke Exposure: No How Often do you Have a Drink Containing Alcohol: Never How Many Standard Drinks Containing Alcohol do you Have on a Typical Day: None How Often do you Have Six or More Drinks on One Occasion: Never AUDIT-C Alcohol Total Score: 0 Non-Prescribed Substance Use: Denies Use Suspect/Identified Abuse: No Provider Notified of Abuse or Suspected Abuse: No Physical Exam Narrative: Vital signs, click to edit/add: Vital Signs - 24 hr 11/26/23 21:50 11/26/23 23:19 11/26/23 23:48 Temperature 97.7 F Pulse Rate [Left A pical] 67 Respiratory Rate 16 18 18 Blood Pressure [Le ft Arm] 150/91 H Pulse Oximetry 98 Oxygen Delivery Me thod Room Air Constitutional: No acute distress, patient awake and alert and oriented x3 Eyes: PERRL, EOMI HEENT: Normocephalic, atraumatic Neck: Normal range of motion, supple, no tenderness Cardiovascular: Normal rate and rhythm. No murmurs rubs or gallops. 2+ pulses throughout. No extremity edema. Respiratory: Clear to auscultation bilaterally without any rales, rhonchi, wheezes. Normal respiratory effort without accessory muscle use. GI: Abdomen soft and nontender : MSK: Skin: Mild dehiscence of previous midline spinal incision with scant surrounding erythema and mild warmth, no purulent discharge or drainage. No fluctuance Neurological: Awake and alert. No focal neurological deficits. Strength and sensation to lower extremities appear to be intact. Psych: Medical Decision Making MDM Narrative Medical decision making narrative: Patient is a 48-year-old female presenting with low back pain. Patient does have a history of previous nerve stimulator placement to the low back which was removed due to infection. No neurological deficits on exam. Examination of the back does reveal dehiscence of previous incision with scant (more content not included)... Normal [facility] ED Clinical Summaryon 2023 ED Clinical Summary [facility] Emergency Department [address] [place] [address] [id number] ED Clinical Summary PERSON INFORMATION Name: JERAD TRACY Age: 48 Years Sex: FEMALE : 1975 MRN: Acct#: Visit Reason: Post surgical problem; BACK PAIN Arrival: 11/26/2023 18:54:46 Discharge: 11/26/2023 20:00:00 LOS: 000 01:06 Check In: 11/26/2023 18:54:46 Checkout:11/26/2023 20:00:00 Address: [address] [place] [id number] PCP: Cheyanne Mckeon PROVIDER INFORMATION VITALS INFORMATION Vital Sign Triage Latest Temperature Tympanic Temperature Temporal Artery Pulse Rate O2 Sat 97 % 97 % Respiratory Rate 18 br/min 18 br/min Blood Pressure /92 mmHg /92 mmHg MEDICAL INFORMATION Medications Given: Allergy Information: HYDROcodone; penicillin PHYSICIAN DOCUMENTATION DISCHARGE INFORMATION: Discharge Disposition: Left Without Being Seen Discharge Location: PATIENT EDUCATION INFORMATION Instructions: Follow-Up: DIAGNOSIS: Patient Understands: Yes - Patient/family/caregive r verbalizes understanding of instructions given Comment: [facility] ED Patient Education Noteon 11-26-2023 ED Patient Education Note Education Materials [facility] ED Patient Summaryon 024 ED Patient Summary [facility] Emergency Department [address] [place] [address] [id number] PATIENT DISCHARGE INSTRUCTIONS Patient Information Name: JERAD TRACY Age: 48 Years Date of : 1975 Reason For Visit: Post surgical problem; BACK PAIN Arrival Time: 11/26/2023 18:54:46 Primary Care Physician: Cheyanne Mckeon Attending Physician: Kristin Bryant MD Comment: Visit Diagnosis: Diagnoses This Visit Post surgical problem ([id number]) The Pharmacy at [facility] is open Saturday through Saturday from 9A [...] alcohol and/or drug addiction problems; contact the [facility] 15/10 Crisis Hotline -Vldp 6AKDQ uj 666493. If you received any narcotics, sedation, or [...] business decisions or sign any legal documents Medication Information: The exam and treatment you received today in the [facility] Emergency Department were for an urgent problem and are not intended as complete care. It is important for you to follow up with a doctor, nurse practitioner, or physician?s per diem physical therapist assistant for ongoing care. If your symptoms become [...] so we can reach you if necessary. [facility] - [facility] has provided you with a complete list of medications post discharge. Please inform your furnace attendant/provider of your visit and for further instruction on these medications. Any specific questions regarding your chronic medications and dosages should be discussed with your primary care physician(s) and/or pharmacist. Medications to Continue That Have Not Changed Other Medications cyclobenzaprine docusate-senna (Stool Softener with Laxative 50 mg-8.6 mg oral tablet) FLUoxetine 60 Milligram Oral (given by mouth) every day. oxyCODONE (oxyCODONE 5 mg oral tablet) Visit Information Allergies: Substance Reaction Symptoms Type Comments HYDROcodone Drug penicillin Drug Vital Signs: Vitals and Measurements this Visit (last charted value for your 11/26/2023 visit) Vital Signs This Visit Temperature Oral: 36.5 DegC Heart Rate Monitored: 89 bpm Respiratory Rate: 18 br/min Systolic Blood Pressure: 149 mmHg Diastolic Blood Pressure: 92 mmHg SpO2: 97 % Oxygen Therapy: Room air Measurements This Visit Height/Length Measured: 44.3 cm Weight Measured: 113.40 kg Weight Dosin.400 kg Body Mass Index: 577.84 kg/m2 Problems List: Problem Onset Comments Tobacco user Patient Education Viruses or Bacteria What?s got you sick? Antibiotics only treat bacterial infections. Viral illnesses cannot be treated with antibiotics. When an antibiotic is not prescribed, ask your healthcare professional for tips on how to relieve symptoms and feel better. Usual Cause Illness Viruses Bacteria Antibiotic Needed Cold/Runny Nose ? NO Bronchitis/Chest Cold (in otherwise healthy children and adults) ? NO Whooping Cough ? Yes Flu ? NO Strep Throat ? Yes Sore Throat (except strep) ? NO Fluid in the middle ear (otitis media with effusion) ? NO Urinary Tract Infection ? Yes Antibiotics Aren?t Always the Answer www.cdc.gov/getsmart GET SMART Know When Antibiotics Work U.S. Department of Health and Human Services Centers for Disease Control and Prevention November 2013 Normal [facility] Eosinophils/100 WBC Auto (Bl d)Ordered By: Flex Veliz on 11-26-2023 Eosinophils/100 WBC (Bld) Eosinophil percentage, automated Low 2-5 [facility] Estimated glomerular filtrat ion rate (GFR) determinationOrdered By: Flex Veliz on 11-26-2023 GFR/1.73 sq M.predicted among non-blacks MDRD (S/P/Bld) [Vol rate/Area] mL/min/{1.73_m2} mL/min/1.73m 2 [facility] Hematocrit Auto (Bld) [Volum e fraction]Ordered By: Flex Veliz on 11-26-2023 Hematocrit (Bld) [Volume fraction] Automated blood hematocrit (percentage) 34.6-44.1 [facility] - UrinalysisOrder ed By: Flex Veliz on 11-26-2023 Leukocyte esterase Test strip Ql (U) Trace Negative [facility] Lymphocyte percentage, autom atedOrdered By: Flex Veliz on 11-26-2023 Lymphocytes/100 WBC (Bld) 22 % 20-35 [facility] MCV (mean corpuscular volume ) determinationOrdered By: Flex Veliz on 11-26-2023 MCV (RBC) [Entitic vol] Determination of erythrocyte mean corpuscular volume (MCV) 83.0-97.4 [facility] Mean corpuscular hemoglobin (MCH) determinationOrdered By: Flex Veliz on 11-26-2023 MCH (RBC) [Entitic mass] 31.1 pg 27.8-33.2 [facility] Mean corpuscular hemoglobin concentration (MCHC) determinationOrdered By: Flex Veliz on 11-26-2023 MCHC (RBC) [Mass/Vol] 33.6 g/dL 32.7-34.8 [facility] Monocytes Auto (Bld) [#/Vol] Ordered By: Flex Veliz on 11-26-2023 Monocytes (Bld) [#/Vol] Automated blood monocyte count 0.2-0.8 [facility] Monocytes/100 WBC Auto (Bld) Ordered By: Flex Veliz on 11-26-2023 Monocytes/100 WBC (Bld) Monocyte percentage, automated 4-12 [facility] MpvOrdered By: Flex garcia 11-26-2023 Platelet mean volume (Bld) [Entitic vol] 9.7 fL 7.6-10.6 [facility] Mucus LM Ql (Urine sed)Order ed By: Flex Veliz on 11-26-2023 Mucus Ql (Urine sed) Mucus detection in urine sediment by light microscopy [facility] Neutrophils/100 WBC Manual c nt (Bld)Ordered By: Flex Veliz on 11-26-2023 Neutrophils/100 WBC (Bld) Manual blood neutrophil count as percentage of leukocytes 41-72 [facility] No Panel InformationOrdered By: Flex Veliz on 11-26-2023 Urine Bacteria Trace /hpf 0 [facility] Occult blood ur QLOrdered By : Flex Veliz on 11-26-2023 Hemoglobin Ql (U) Occult blood ur QL Negative [facility] RDWOrdered By: Flex Veliz o n 11-26-2023 Erythrocyte distribution width (RBC) [Ratio] 13.2 % 12.2-15.8 [facility] Serum or plasma carbon dioxi de measurement (moles/volume)Ordered By: Flex Veliz on 11-26-2023 CO2 [Moles/Vol] Serum or plasma tota l carbon dioxide measurement (moles/volume) Low 22-29 [facility] Serum or plasma chloride florin surement (moles/volume)Ordered By: Flex Veliz on 11-26-2023 Chloride [Moles/Vol] Serum or plasma chloride measurement (moles/volume) High 98-107 [facility] Serum or plasma glucose skyla urement (mass/volume)Ordered By: Flex Veliz on 11-26-2023 Glucose [Mass/Vol] Serum glucose measurement (mass/volume) High 70-100 [facility] Serum or plasma potassium me asurement (moles/volume)Ordered By: Flex Veliz on 11-26-2023 Potassium [Moles/Vol] Serum or plasma potassium measurement (moles/volume) 3.5-5.1 [facility] Specific gravity Test strip (U) [Rel density]Ordered By: Flex Veliz on 11-26-2023 Specific gravity (U) [Rel density] Specific gravity ur dipstick 1.005-1.030 [facility] Squamous epithelial cells de tection in urine sediment by light microscopyOrdered By: Flex Veliz on 11-26-2023 Epithelial cells.squamous LM Ql (Urine sed) Squamous epithelial cells detection in urine sediment by light microscopy 0 [facility] UA with Reflex Cultureon Bacteria Urine TRACE Normal 0 [facility] Comment on above: Performed By: #### U AREFLEX #### [facility] [address] [place] [address] Mucus Urine 1+ /hpf Normal [facility] Comment on above: Performed By: #### U AREFLEX #### [facility] [address] [place] [address] Squamous Epithelial Cell Urine 6-10 Normal 0 [facility] Comment on above: Performed By: #### U AREFLEX #### [facility] [address] [place] [address] WBC Urine 0-2 Normal 0 [facility] Comment on above: Performed By: #### U AREFLEX #### [facility] [address] [place] [address] Appearance (U) CLEAR Normal CLEAR [facility] Comment on above: Performed By: #### U AREFLEX #### [facility] [address] [place] [address] Bilirubin Urine Negative Normal Negative [facility] Comment on above: Performed By: #### U AREFLEX #### [facility] [address] [place] [address] Color (U) YELLOW Normal YELLOW [facility] Comment on above: Performed By: #### U AREFLEX #### [facility] [address] [place] [address] Glucose Urine UA Negative Normal Negative [facility] Comment on above: Performed By: #### U AREFLEX #### [facility] [address] [place] [address] Ketones Ql (U) Negative Normal Negative [facility] Comment on above: Performed By: #### U AREFLEX #### [facility] [address] [place] [address] Leukocyte esterase Test strip Ql (U) TRACE Normal Negative [facility] Comment on above: Performed By: #### U AREFLEX #### [facility] [address] [place] [address] Nitrite Urine Negative Normal NEGATIVE [facility] Comment on above: Performed By: #### U AREFLEX #### [facility] [address] [place] [address] Occult Blood Urine Negative Normal Negative [facility] Comment on above: Performed By: #### U AREFLEX #### [facility] [address] [place] [address] pH (U) 7.0 [pH] Normal 5.5-8.0 [facility] Comment on above: Performed By: #### U AREFLEX #### [facility] [address] [place] [address] Protein Urine (Multistix) Negative Normal Negative [facility] Comment on above: Performed By: #### U AREFLEX #### [facility] [address] [place] [address] Specific [place] Urine 1.015 Normal 1.005-1.030 [facility] Comment on above: Performed By: #### U AREFLEX #### [facility] [address] [place] [address] Urobilinogen Urine 0.2 EU/dL Normal 0.2-1.0 [facility] Comment on above: Performed By: #### U AREFLEX #### [facility] [address] [place] [address] Urine appearance determinati onOrdered By: Flex Veliz on 11-26-2023 Appearance (U) Urine appearance CLEAR [facility] Urine bilirubin measurementO rdered By: Flex Veliz on 11-26-2023 Bilirubin Ql (U) Negative Negative [facility] Urine color determinationOrd ered By: Flex Veliz on 11-26-2023 Color (U) Urine color YELLOW [facility] Urine glucose detection by a utomated test stripOrdered By: Flex Veliz on 11-26-2023 Glucose Auto test strip Ql (U) Urine glucose detection by automated test strip Negative [facility] Urine ketones measurementOrd ered By: Flex Veliz on 11-26-2023 Ketones Ql (U) Negative Negative [facility] Urine microscopic examinatio n for leukocytesOrdered By: Flex Veliz on 11-26-2023 Urine Microscopic WBC 0-2 /hpf 0 [facility] Urine nitrite detection by a utomated test stripOrdered By: Flex Veliz on 11-26-2023 Nitrite Auto test strip Ql (U) Urine nitrite detection by automated test strip NEGATIVE [facility] Urine pH measurementOrdered By: Flex Veliz on 11-26-2023 pH (U) pH of Urine 5.5-8.0 [facility] Urine protein measurementOrd ered By: Flex Veliz on 11-26-2023 Protein Ql (U) Negative Negative [facility] Urine urobilinogen measureme ntOrdered By: Flex Veliz on 11-26-2023 Urobilinogen Ql (U) Urine urobilinogen measurement 0.2-1.0 [facility] Venous blood sodium measurem entOrdered By: Flex Veliz on 11-26-2023 Sodium (BldV) [Moles/Vol] Venous blood sodium measurement 136-145 [facility] WBC totalOrdered By: Flex milton on 11-26-2023 White Blood Count 11.9 10'3/uL High 3.2-9.3 [facility] Whole blood hemoglobin measu rement (mass/volume)Ordered By: Flex Veliz on 11-26-2023 Hemoglobin (Bld) [Mass/Vol] Blood hemoglobin measurement (mass/volume) 11.7-14.9 [facility] Alanine aminotransferase [En zymatic activity/volume] in Serum or PlasmaOrdered By: José Miguel Mcnamara on 11-25-2023 ALT [Catalytic activity/Vol] 22 U/L Normal 7-52 [facility] Comment on above: Performed By: #### U HCG, ADDONUAPLUS #### [address] Albumin [Mass/volume] in Ser um or Plasma by Bromocresol green (BCG) dye binding methoOrdered By: José Miguel Mcnamara on 11-25-2023 Albumin BCG dye [Mass/Vol] 3.8 g/dL 3.5-5.7 [facility] Alkaline phosphatase [Enzyma tic activity/volume] in Serum or PlasmaOrdered By: José Miguel Mcnamara on 11-25-2023 ALP [Catalytic activity/Vol] 65 U/L Normal 34-104 [facility] Comment on above: Performed By: #### U HCG, ADDONUAPLUS #### [address] Aspartate aminotransferase [ Enzymatic activity/volume] in Serum or PlasmaOrdered By: José Miguel Mcnamara on 11-25-2023 AST [Catalytic activity/Vol] 18 U/L Normal 13-39 [facility] Comment on above: Performed By: #### U HCG, ADDONUAPLUS #### [address] Automated basophil %Ordered By: José Miguel Mcnamara on 11-25-2023 Basophils/100 WBC (Bld) 0.5 % Normal . [facility] Comment on above: Performed By: #### U HCG, ADDONUAPLUS #### [address] Automated basophil countOrde red By: José Miguel Mcnamara on 11-25-2023 Basophils (Bld) [#/Vol] 0.1 10*3/uL Normal 0.0-0.2 [facility] Comment on above: Result Comment: PERF ORMED BY: [place] [address] PATHOLOGIST RING MAKING 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 JASON WILSON M.D. Performed By: #### U HCG, ADDONUAPLUS #### [facility] [address] [place] [address] Automated blood monocyte cou ntOrdered By: José Miguel Mcnamara on 11-25-2023 Monocytes (Bld) [#/Vol] 0.8 10*3/uL Normal 0.0-0.8 [facility] Comment on above: Performed By: #### U HCG, ADDONUAPLUS #### [address] Automated eosinophil %Ordere d By: José Miguel Mcnamara on 11-25-2023 Eosinophils/100 WBC (Bld) 1.4 % Normal . [facility] Comment on above: Performed By: #### U HCG, ADDONUAPLUS #### [address] Automated eosinophil countOr dered By: José Miguel Mcnamara on 11-25-2023 Eosinophils (Bld) [#/Vol] 0.1 10*3/uL Normal 0.0-0.45 [facility] Comment on above: Performed By: #### U HCG, ADDONUAPLUS #### [address] Automated monocyte %Ordered By: José Miguel Mcnamara on 11-25-2023 Monocytes/100 WBC (Bld) 7.6 % Normal . [facility] Comment on above: Performed By: #### U HCG, ADDONUAPLUS #### [address] Automated neutrophil %Ordere d By: José Miguel Mcnamara on 11-25-2023 Neutrophils/100 WBC (Bld) 64.0 % Normal . [facility] Comment on above: Performed By: #### U HCG, ADDONUAPLUS #### [address] Basic Metabolic Panelon Creatinine Clr Calc Pharmacy 94.23 Normal [facility] Comment on above: Result Comment: PERF ORMED BY: [place] [address] PATHOLOGIST RING MAKING 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 JASON WILSON M.D. Performed By: #### U HCG, ADDONUAPLUS #### [address] GFR/1.73 sq M.predicted MDRD (S/P/Bld) [Vol rate/Area] mL/min/{1.73_m2} Normal [facility] Comment on above: Performed By: #### U HCG, ADDONUAPLUS #### [address] Bilirubin.direct [Mass/volum e] in Serum or PlasmaOrdered By: José Miguel Mcnamara on 11-25-2023 Bilirubin.direct [Mass/Vol] 0.00 mg/dL Low 0.03-0.18 [facility] Comment on above: If the DBIL is less than 0.1, IBIL is not able to becalculated. Bilirubin.total [Mass/volume ] in Serum or PlasmaOrdered By: José Miguel Mcnamara on 11-25-2023 Bilirubin [Mass/Vol] 0.2 mg/dL Low 0.3-1.0 [facility] Comment on above: Performed By: #### U HCG, ADDONUAPLUS #### [facility] [address] [place] [address] Calcium [Mass/volume] in Ser um or PlasmaOrdered By: José Miguel Mcnamara on 11-25-2023 Calcium [Mass/Vol] 8.2 mg/dL Low 8.6-10.3 [facility] Comment on above: Performed By: #### U HCG, ADDONUAPLUS #### [address] Carbon dioxide, total [Moles /volume] in Serum or PlasmaOrdered By: José Miguel Mcnamara on 11-25-2023 CO2 [Moles/Vol] 26.0 mmol/L Normal 21.0-31.0 [facility] Comment on above: Performed By: #### U HCG, ADDONUAPLUS #### [place] [address] [place] Chloride [Moles/volume] in S saw or PlasmaOrdered By: José Miguel Mcnamara on 11-25-2023 Chloride [Moles/Vol] 106 mmol/L Normal 98-107 [facility] Comment on above: Performed By: #### U HCG, ADDONUAPLUS #### [address] Complete Blood Count Auto Di ffon 11-25-2023 Mean Corpuscular HGB Conc 33.6 g/dL Normal 32.0-35.0 [facility] Comment on above: Performed By: #### U HCG, ADDONUAPLUS #### [facility] [address] [place] [address] [place] Monocytes/100 WBC (Bld) 19.84 % Normal 0.00-20.00 [facility] Comment on above: Performed By: #### U HCG, ADDONUAPLUS #### [facility] [address] NRBC% 0.2 /100{WBC} Normal 0-0.5 [facility] Comment on above: Performed By: #### U HCG, ADDONUAPLUS #### [facility] [address] Creatinine [Mass/volume] in Serum or PlasmaOrdered By: José Miguel Mcnamara on 11-25-2023 Creatinine [Mass/Vol] 0.92 mg/dL Normal 0.60-1.20 [facility] Comment on above: Performed By: #### U HCG, ADDONUAPLUS #### [address] Erythrocyte distribution wid th [Ratio] by Automated countOrdered By: José Miguel Mcnamara on 11-25-2023 Erythrocyte distribution width (RBC) [Ratio] 14.0 % Normal 11.9-15.3 [facility] Comment on above: Performed By: #### U HCG, ADDONUAPLUS #### [address] Erythrocytes [#/volume] in B lood by Automated countOrdered By: José Miguel Mcnamara on 11-25-2023 RBC (Bld) [#/Vol] 3.94 10*6/uL Normal 3.60-5.00 [facility] Comment on above: Performed By: #### U HCG, ADDONUAPLUS #### [address] Glucose [Mass/volume] in Ser um or PlasmaOrdered By: José Miguel Mcnamara on 11-25-2023 Glucose [Mass/Vol] 105 mg/dL High 70-100 [facility] Comment on above: ADA recommended refe rence rangeRandom Glucose Reference Range is dependent on time and content of last meal. Glucose of more than 200 mg/dL in a nonstressed, ambulatory subject supports the diagnosis of Diabetes Mellitus. Result Comment: [place] om Glucose Reference Range is dependent on time and content of last meal. Glucose of more than 200 mg/dL in a nonstressed, ambulatory subject supports the diagnosis of Diabetes Mellitus. ADA recommended reference range Performed By: #### U HCG, ADDONUAPLUS #### [address] Hematocrit [Volume Fraction] of Blood by Automated countOrdered By: José Miguel Mcnamara on 11-25-2023 Hematocrit (Bld) [Volume fraction] 37.0 % Normal 34.0-46.4 [facility] Comment on above: Performed By: #### U HCG, ADDONUAPLUS #### [address] Hemoglobin [Mass/volume] in BloodOrdered By: José Miguel Mcnamara on 11-25-2023 Hemoglobin (Bld) [Mass/Vol] 12.4 g/dL Normal 11.8-15.4 [facility] Comment on above: Performed By: #### U HCG, ADDONUAPLUS #### [address] Hepatic Panelon 11-25-2023 Albumin [Mass/Vol] 3.8 g/dL Normal 3.5-5.7 [facility] Comment on above: Performed By: #### U HCG, ADDONUAPLUS #### [address] Bilirubin,Indirect 0.2 mg/dL Normal [facility] Comment on above: Performed By: #### U HCG, ADDONUAPLUS #### [address] Bilirubin.indirect [Mass/Vol] 0.00 mg/dL Low 0.03-0.18 [facility] Comment on above: Result Comment: If t he DBIL is less than 0.1, IBIL is not able to be calculated. Performed By: #### U HCG, ADDONUAPLUS #### [address] Leukocytes [#/volume] correc lisa for nucleated erythrocytes in Blood by Automated counOrdered By: José Miguel Mcnamara on 11-25-2023 WBC corrected for nucl RBC Auto (Bld) [#/Vol] 9.9 10*3/uL 3.8-11.6 [facility] Leukocytes [#/volume] in Blo od by Automated countOrdered By: José Miguel Mcnamara on 11-25-2023 WBC (Bld) [#/Vol] 9.9 10*3/uL Normal 3.8-11.6 [facility] Comment on above: Performed By: #### U HCG, ADDONUAPLUS #### [facility] [address] [place] [address] [place] Lymphocytes [#/volume] in Bl ood by Automated countOrdered By: José Miguel Mcnamara on 11-25-2023 Lymphocytes (Bld) [#/Vol] 2.6 10*3/uL Normal 1.00-4.8 [facility] Comment on above: Performed By: #### U HCG, ADDONUAPLUS #### [address] Lymphocytes/100 leukocytes i n Blood by Automated countOrdered By: José Miguel Mcnamara on 11-25-2023 Lymphocytes/100 WBC (Bld) 26.5 % Normal . [facility] Comment on above: Performed By: #### U HCG, ADDONUAPLUS #### [facility] [address] [place] [address] MCH [Entitic mass] by Automa lisa countOrdered By: José Miguel Mcnamara on 11-25-2023 MCH (RBC) [Entitic mass] 31.6 pg Normal 24.7-34.3 [facility] Comment on above: Performed By: #### U HCG, ADDONUAPLUS #### [address] MCHC Auto (RBC) [Mass/Vol]Or dered By: José Miguel Mcnamara on 11-25-2023 MCHC (RBC) [Mass/Vol] 33.6 g/dL 32.0-35.0 [facility] MCV [Entitic volume] by Auto mated countOrdered By: José Miguel Mcnamara on 11-25-2023 MCV (RBC) [Entitic vol] 93.9 fL Normal 80-100 [facility] Comment on above: Performed By: #### U HCG, ADDONUAPLUS #### [facility] [address] [place] [address] [place] Monocyte distribution width [Entitic volume] in Blood by AutomatedOrdered By: José Miguel Mcnamara on 11-25-2023 Monocyte distribution width Auto (Bld) [Entitic vol] 19.84 % 0.00-20.00 [facility] Neutrophils [#/volume] in Bl ood by Automated countOrdered By: José Miguel Mcnamara on 11-25-2023 Neutrophils (Bld) [#/Vol] 6.3 10*3/uL Normal 1.8-7.7 [facility] Comment on above: Performed By: #### U HCG, ADDONUAPLUS #### [address] No Panel InformationOrdered By: José Miguel Mcnamara on 11-25-2023 Estimated GFR (CKD-EPI) > 60.0 mL/Min [facility] Creatinine Clearance (Chem 94.23 [facility] Nucleated erythrocytes [Pres ence] in Blood by Automated countOrdered By: José Miguel Mcnamara on 11-25-2023 Nucleated RBC Auto Ql (Bld) 0.2 /100{WBC} 0-0.5 [facility] Platelet mean volume [Entiti c volume] in Blood by Automated countOrdered By: José Miguel Mcnamara on 11-25-2023 Platelet mean volume (Bld) [Entitic vol] 8.3 fL Normal 6.3-10.7 [facility] Comment on above: Performed By: #### U HCG, ADDONUAPLUS #### [facility] [address] [place] [address] Platelets [#/volume] in Bloo d by Automated countOrdered By: José Miguel Mcnamara on 11-25-2023 Platelets (Bld) [#/Vol] 326 10*3/uL Normal 150-450 [facility] Comment on above: Performed By: #### U HCG, ADDONUAPLUS #### [address] Potassium [Moles/volume] in Serum or PlasmaOrdered By: José Miguel Mcnamara on 11-25-2023 Potassium [Moles/Vol] 4.0 mmol/L Normal 3.5-5.1 [facility] Comment on above: Performed By: #### U HCG, ADDONUAPLUS #### [address] Protein [Mass/volume] in Ser um or PlasmaOrdered By: José Miguel Mcnamara on 11-25-2023 Protein [Mass/Vol] 6.6 g/dL Normal 6.4-8.9 [facility] Comment on above: Performed By: #### U HCG, ADDONUAPLUS #### [address] Serum globulin measurement b y calculation (mass/volume)Ordered By: José Miguel Mcnamara on 11-25-2023 Globulin (S) [Mass/Vol] 2.8 g/dL [facility] Comment on above: Performed By: #### U HCG, ADDONUAPLUS #### [facility] [address] [place] [address] Serum or plasma albumin/glob ulin mass ratioOrdered By: José Miguel Mcnamara on 11-25-2023 Albumin/Globulin [Mass ratio] 1.4 {ratio} [facility] Comment on above: Performed By: #### U HCG, ADDONUAPLUS #### [address] Serum or plasma anion gap de terminationOrdered By: José Miguel Mcnamara on 11-25-2023 Anion gap [Moles/Vol] 12.0 mmol/L Normal 6.0-15.0 [facility] Comment on above: Performed By: #### U HCG, ADDONUAPLUS #### [address] Serum or plasma non-glucuron idated bilirubin measurement (mass/volume)Ordered By: José Miguel Mcnamara on 11-25-2023 Bilirubin.indirect [Mass/Vol] 0.2 mg/dL [facility] Sodium [Moles/volume] in Ser um or PlasmaOrdered By: José Miguel Mcnamara on 11-25-2023 Sodium [Moles/Vol] 140 mmol/L Normal 136-145 [facility] Comment on above: Performed By: #### U HCG, ADDONUAPLUS #### [facility] [address] Urea nitrogen [Mass/volume] in Serum or PlasmaOrdered By: José Miguel Mcnamara on 11-25-2023 Urea nitrogen [Mass/Vol] 17 mg/dL Normal 7-25 [facility] Comment on above: Performed By: #### U HCG, ADDONUAPLUS #### [facility] [address] ED Clinical Summaryon 2023 ED Clinical Summary Normal [facility] ED Note-Physicianon 11-24-19 ED Note-Physician Normal [facility] Comment on above: Result Comment: Elec tronically Signed By: Landon Tidwell PA-C\.br\Date and Time Signed: 11/24/23 15:48 EDT\.br\Electronically Co-Signed By: Balbina Bryant M.D.\.br\Date and Time Co-Signed: 11/24/23 17:50 EDT ED Patient Education Noteon 11-24-2023 ED Patient Education Note Normal [facility] ED Patient Summaryon 024 ED Patient Summary Normal [facility] XR Knee Complete 4+ Views Le fton 11-24-2023 XR Knee Complete 4+ Views Left Normal [facility] Creatinineon 11-17-2023 Creatinine [Mass/Vol] 0.70 mg/dL Normal 0.50-1.05 [facility] Comment on above: Performed By: #### 5 0023-1 #### JOLENE Cantu ([id number]) [facility] ([facility]) [address] [place] [address] Creatinine [Mass/Vol]on 10-24 GFR/1.73 sq M.predicted MDRD (S/P/Bld) [Vol rate/Area] mL/min/{1.73_m2} Normal >60 [facility] Comment on above: Result Comment: Calc ulations of estimated GFR are performed using the 2020 CKD-EPI Study Refit equation without the race variable for the IDMS-Traceable creatinine methods. https://jasn.asnjournals.org/content/early/ASN.03808 35655 Performed By: #### 5 0023-1 #### JOLENE Cantu ([id number]) [facility] ([facility]) [address] [place] [address] Vancomycinon 11-17-2023 Vancomycin [Mass/Vol] 7.5 ug/mL Normal 5.0-20.0 [facility] Comment on above: Order Comment: Repor table Range: 15-100,000,000 IU/mL. The javier HCV is an in vitro nucleic acid amplification test for both the detection and quantitation of hepatitis C virus (HCV) RNA, in human EDTA plasma or serum, of HCV antibody positive or HCV-infected individuals on the javier Medbox0/8800 Systems. Dual probes are used to detect [...] the [facility] Diagnostic Laboratory, Department of Pathology, [facility]. Performed By: #### 5 0023-1 #### JOLENE Cantu ([id number]) [facility] ([facility]) [address] [place] [address] 49163 Bacteria identifiedon 2023 Bacteria identified Cx Nom (Unsp spec) Test: Tissue/Wound Culture/Smear Specimen Source: Wound/Tissue Specimen Type: Tissue/Biopsy Specimen Date: 11/14/2023929 Result Date: 11/16/20231020 Result Status: Final result Abnormal: Yes Resulting Lab: [facility] [address] [place], [place] [id number] CULTURE (1+) Rare Mixed Skin Microorganisms STAIN No polymorphonuclear leukocytes seen (1+) Rare Gram positive cocci Abnormal [facility] Comment on above: Performed By: #### 1 834-1 #### JOLENE Cantu ([id number]) [facility] ([facility]) [address] [place] [address] 28628 Urinalysis complete panel (U )on 11-14-2023 Appearance (U) Clear Normal Clear [facility] Comment on above: Performed By: #### 1 834-1 #### JOLENE Cantu ([id number]) [facility] ([facility]) [address] [place] [address] 83464 Bilirubin (U) [Mass/Vol] Negative Normal NEGATIVE [facility] Comment on above: Performed By: #### 1 834-1 #### JOLENE Cantu ([id number]) [facility] ([facility]) [address] [place] [address] 52446 Color (U) Yellow Normal Light-Yellow , Yellow, Dark-Yellow [facility] Comment on above: Performed By: #### 1 834-1 #### JOLENE Cantu ([id number]) [facility] ([facility]) [address] [place] [address] 99276 Glucose Auto test strip (U) [Mass/Vol] Normal Normal Normal [facility] Comment on above: Performed By: #### 1 834-1 #### JOLENE Cantu ([id number]) [facility] ([facility]) [address] [place] [address] 10262 Ketones (U) [Mass/Vol] TRACE Abnormal NEGATIVE [facility] Comment on above: Performed By: #### 1 834-1 #### JOLENE Cantu ([id number]) [facility] ([facility]) [address] [place] [address] 89475 Leukocyte esterase Auto test strip Ql (U) 25 Robert/???L Abnormal NEGATIVE [facility] Comment on above: Performed By: #### 1 834-1 #### JOLENE Cantu ([id number]) [facility] ([facility]) [address] [place] [address] 05012 Nitrite Auto test strip Ql (U) Negative Normal NEGATIVE [facility] Comment on above: Performed By: #### 1 834-1 #### JOLENE Cantu ([id number]) [facility] ([facility]) [address] [place] [address] 29825 pH (U) 6.0 [pH] Normal 5.0, 5.5, 6.0, 6.5, 7.0, 7.5, 8.0 [facility] Comment on above: Performed By: #### 1 834-1 #### JOLENE Cantu ([id number]) [facility] ([facility]) [address] [place] [address] 08637 Protein (U) [Mass/Vol] 30 (1+) Abnormal NEGAT ALEXANDRE, 10 (TRACE), 20 (TRACE) [facility] Comment on above: Performed By: #### 1 834-1 #### JOLENE Cantu ([id number]) [facility] ([facility]) [address] [place] [address] 22731 RBC (U) [#/Vol] Negative Normal NEGATIVE [facility] Comment on above: Performed By: #### 1 834-1 #### JOLENE Cantu ([id number]) [facility] ([facility]) [address] [place] [address] Specific gravity (U) [Rel density] >1.050 Normal 1.005-1.035 [facility] Comment on above: Result Comment: Spec [facility] gravity of >1.050 may be falsely elevated due to interferences with measurement. If clinically indicated, repeat testing with an alternative method is available by contacting the laboratory within 24 hours. Performed By: #### 1 834-1 #### JOLENE Cantu ([id number]) [facility] ([facility]) [address] [place] [address] Urobilinogen (U) [Mass/Vol] 3 (1+) Abnormal Normal [facility] Comment on above: Result Comment: Some pigments and medications may cause a false positive urobilinogen. Performed By: #### 1 834-1 #### JOLENE Cantu ([id number]) [facility] ([facility]) [address] [place] [address] Urinalysis microscopic panel Auto Ql (U)on 11-14-2023 Epithelial cells.squamous Auto (Urine sed) [#/Area] 10-25 (FEW) Normal Reference range not established. [facility] Comment on above: Performed By: #### 1 834-1 #### JOLENE Cantu ([id number]) [facility] ([facility]) [address] [place], [place] [address] Mucus Auto (Urine sed) [#/Area] 2+ /LPF Normal Reference range not established. [facility] Comment on above: Performed By: #### 1 834-1 #### JOLENE Cantu ([id number]) [facility] ([facility]) [address] [place] [address] 24293 RBC Auto (Urine sed) [#/Area] 1-2 Normal NONE, 1-2, 3-5 [facility] Comment on above: Performed By: #### 1 834-1 #### JOLENE Cantu ([id number]) [facility] ([facility]) [address] [place], [place] [phone] WBC Auto (Urine sed) [#/Area] 1-5 Normal 1-5, NONE [facility] Comment on above: Performed By: #### 1 834-1 #### JOLENE Cantu ([id number]) [facility] ([facility]) [address] [place] [address] 48965 Vancomycinon 11-14-2023 Vancomycin [Mass/Vol] 9.2 ug/mL Normal 5.0-20.0 [facility] Comment on above: Order Comment: AFP t esting is performed by chemiluminescent immunoassay using the Siemens Synata. Values obtained with different analyte methods cannot be used interchangeably. This test can be used as an adjunct in the diagnosis and monitoring of AFP-producing tumors, including non-seminomatous germ cell tumors and hepatocellular carcinomas. Performed By: #### 1 834-1 #### JOLENE Cantu ([id number]) [facility] ([facility]) [address] [place], [place] [address] Blood type and Indirect anti body screen panel (Bld)on 11-13-2023 ABO group Nom (Bld) O [facility] Comment on above: Performed By: #### 1 834-1 #### JOLENE Cantu ([id number]) [facility] ([facility]) [address] [place], [place] [address] Blood group antibody screen Ql Negative [facility] Comment on above: Performed By: #### 1 834-1 #### JOLENE Cantu ([id number]) [facility] ([facility]) [address] [place], [place] [address] D Ag Ql (Bld) Positive [facility] Comment on above: Performed By: #### 1 834-1 #### JOLENE Cantu ([id number]) [facility] ([facility]) [address] [place], [place] [address] CT LUMBAR SPINE WO IV CONTRA STon 11-13-2023 CT LUMBAR SPINE WO IV CONTRAST This finding was discussed with and acknowledged by Dr Alana Lindquist on 11/13/2023 at 2:54 PM Signed by Bon Berry MD STUDY: CT Lumbar Spine without IV Contrast; 11/13/2023 1:45 PM INDICATION: Re-assess surgical site. COMPARISON: CT lumbar 11/09/2023. MR lumbar 10/31/2023. ACCESSION NUMBER(S): [id number] ORDERING CLINICIAN: ALANA LINDQUIST TECHNIQUE: CT of the lumbar spine was performed without intravenous or intrathecal contrast. Sagittal and coronal reconstructions were generated. Automated mA/kV exposure control was utilized and patient examination was performed in strict accordance with principles of ALARA. FINDINGS: Again seen is the edema in the subcutaneous fat from approximately T12-L4. This has slightly improved. The fluid collection posterior to the spinous process of L3 is no longer seen. At L4-5, there is a hyperdensity in the anterior portion of the spinal canal. This measures 7.2 mm in thickness compared to 3.4 mm on the prior examination. The alignment is anatomic. There is no fracture or traumatic subluxation. The vertebral body heights are well maintained. There is stable disc space narrowing at L4-5. The paravertebral soft tissues are within normal limits. Bilateral adrenal nodules are unchanged. The visualized abdomen is otherwise unremarkable. IMPRESSION: 1. Again seen is the edema in the subcutaneous fat from approximately T12-L4. This has slightly improved. The fluid collection posterior to the spinous process of L3 is no longer seen. 2. At L4-5, there is a hyperdensity in the anterior portion of the spinal canal. This has enlarged since the previous examination. The fact that this has enlarged over just a few days makes this more suspicious for an epidural abscess. Recommend contrast-enhanced MRI for further evaluation. Signed by Bon Berry MD [facility] Choriogonadotropin.beta subu niton 11-13-2023 HCG.beta subunit Qn m[IU]/mL Normal <5 [facility] Comment on above: Order Comment: AFP t esting is performed by chemiluminescent immunoassay using the Siemens Atellica. Values obtained with different analyte methods cannot be used interchangeably. This test can be used as an adjunct in the diagnosis and monitoring of AFP-producing tumors, including non-seminomatous germ cell tumors and hepatocellular carcinomas. Performed By: #### 1 834-1 #### JOLENE Cantu ([id number]) [facility] ([facility]) [address] [place] [id number] ECG 12-LEADon 11-13-2023 ECG 12-LEAD Ventricular Rate 91 Atrial Rate 91 P-R Interval 130 QRS Duration 80 Q-T Interval 408 QTC Calculation(Bazett) 501 P Orient 84 R Orient 56 T Orient 70 QRS Count 15 Q Onset 219 P Onset 154 P Offset 205 T Offset 423 QTC Fredericia 469 Diagnosis Normal sinus rhythm Right atrial enlargement Low voltage QRS Prolonged QT Abnormal ECG No previous ECGs available See ED provider note for full interpretation and clinical correlation Confirmed by Marquis Calderón ([id number]) on 11/14/2023 12:52:38 AM Normal [facility] MR LUMBAR SPINE W AND WO IV CONTRASTon 11-13-2023 MR LUMBAR SPINE W AND WO IV CONTRAST Interpreted By: Oscar Sabillon and Kenji Herr STUDY: MR LUMBAR SPINE W AND WO IV CONTRAST; 11/13/2023 8:10 pm INDICATION: Signs/Symptoms:r/o abscess. COMPARISON: MRI lumbar spine 10/31/2023 ACCESSION NUMBER(S): [id number] ORDERING CLINICIAN: CRISTOBAL GARIBAY TECHNIQUE: Sagittal T1, T2, STIR, axial T1 and T2 weighted images of the lumbar spine were acquired. Postcontrast imaging was obtained after the administration of 20 mL Dotarem. FINDINGS: There are 5 lumbar-type vertebral bodies, the last well-formed disc space is labeled L5-S1. Alignment: The vertebral alignment is maintained. Vertebrae/Intervertebra l Discs: The vertebral bodies demonstrate expected height. Similar appearance of degenerative disc space narrowing at L4-L5 with type 2 endplate Modic change. Disc desiccation at L5-S1. Conus Medullaris: The lower thoracic cord appears unremarkable. The conus terminates at L1-L2. The cauda equina is unremarkable. 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 No spinal canal or right neural foraminal narrowing. L1-L3: Mild facet arthropathy and prominent epidural fat. No disc bulge or herniation. No spinal canal or neural foraminal narrowing. L3-4: Facet arthropathy and prominent epidural fat. Small disc bulge. No spinal canal or neural foraminal narrowing. L4-5: Disc bulge with superimposed left subarticular disc protrusion contributes to moderate central canal stenosis and significant left subarticular stenosis similar to prior. There is also similar wocm-vg-ioiypbhj right greater than left foraminal stenosis due to disc material and facet hypertrophy. L5-S1: Disc bulge and facet arthropathy contributes to mild right foraminal stenosis. No significant central canal or left foraminal stenosis. Interval decrease in size of a fluid-filled collection within the posterior soft tissues to the left of midline at the L3 level which currently measures 1.8 x 2.2 x 2.0 Cm, previously measuring 2.3 x 3.0 x 2.4 cm. There is surrounding enhancement similar to mildly improved compared to prior examination. IMPRESSION: 1. Interval decrease in size of fluid collection within the posterior subcutaneous tissues to the left of midline at the level of L3. There is surrounding inflammatory changes which may also represent postoperative changes. Sterility of this collection can not be determined on imaging. 2. Similar degenerative changes most prominent at L4-L5 with moderate spinal canal stenosis and bilateral neural foraminal stenosis. I personally reviewed the images/study and I agree with the findings as stated. This study was interpreted at [place], [place]. Signed by: Oscar Sabillon 11/14/2023 2:57 AM Dictation workstation: [id number] Normal [facility] PT and aPTT panel Coag (PPP) on 11-13-2023 aPTT Coag (PPP) [Time] 29 s Normal 27-38 Un [facility] Comment on above: Order Comment: AFP t esting is performed by chemiluminescent immunoassay using the Siemens Atellica. Values obtained with different analyte methods cannot be used interchangeably. This test can be used as an adjunct in the diagnosis and monitoring of AFP-producing tumors, including non-seminomatous germ cell tumors and hepatocellular carcinomas. Performed By: #### 1 834-1 #### JOLENE Cantu ([id number]) [facility] ([facility]) [address] [place] [address] INR Coag (PPP) [Relative time] 1.1 Normal 0.9-1.1 [facility] Comment on above: Order Comment: AFP t esting is performed by chemiluminescent immunoassay using the Siemens Atellica. Values obtained with different analyte methods cannot be used interchangeably. This test can be used as an adjunct in the diagnosis and monitoring of AFP-producing tumors, including non-seminomatous germ cell tumors and hepatocellular carcinomas. Performed By: #### 1 834-1 #### JOLENE Cantu ([id number]) [facility] ([facility]) [address] [place] [address] PT Coag (PPP) [Time] 12.3 s Normal 9.8-12.8 [facility] Comment on above: Order Comment: AFP t esting is performed by chemiluminescent immunoassay using the Siemens JuntinesllSuper Vitamin D. Values obtained with different analyte methods cannot be used interchangeably. This test can be used as an adjunct in the diagnosis and monitoring of AFP-producing tumors, including non-seminomatous germ cell tumors and hepatocellular carcinomas. Performed By: #### 1 834-1 #### JOLENE Cantu ([id number]) [facility] ([facility]) [address] [place] [address] XR CHEST 1 VIEWon 11-13-2023 XR CHEST 1 VIEW STUDY: Chest Radiograph; 11/13/2023 11:40 AM INDICATION: Pre-operative evaluation. COMPARISON: XR Chest 10/31/2023 ACCESSION NUMBER(S): [id number] ORDERING CLINICIAN: CRISTOBAL GARIBAY TECHNIQUE: Frontal chest was obtained at 11:38 hours. FINDINGS: CARDIOMEDIASTINAL SILHOUETTE: Cardiomediastinal silhouette is normal in size and configuration. LUNGS: Lungs are clear. ABDOMEN: No remarkable upper abdominal findings. BONES: No acute osseous changes. IMPRESSION: No acute process. Signed by Taj Chandler MD [facility] Bacteria identifiedon 2023 Bacteria identified Cx Nom (Bld) Test: Blood Culture Specimen Source: Peripheral Venipuncture Specimen Type: Blood culture Specimen Date: 11/12/2023 1631 Result Date: 11/17/2023 0002 Result Status: Final result Abnormal: No Resulting Lab: [facility] [address] [place], [place] [id number] CULTURE No growth at 4 days - FINAL REPORT [facility] Comment on above: Performed By: #### 2 064-4 #### JOLENE Cantu ([id number]) [facility] ([facility]) [address] [place] [address] 38837 C reactive proteinon 024 CRP [Mass/Vol] 0.79 mg/dL Normal <1.00 [facility] Comment on above: Performed By: #### 2 064-4 #### JOLENE Cantu ([id number]) [facility] ([facility]) [address] [place] [address] 81634 CBC W Auto Differential pane l (Bld)on 11-12-2023 Basophils (Bld) [#/Vol] 0.02 x10*3/uL Normal 0.00-0.10 [facility] Comment on above: Performed By: #### 2 064-4 #### JOLENE Cantu ([id number]) [facility] ([facility]) [address] [place] [address] 36056 Basophils/100 WBC (Bld) 0.2 % Normal 0.0-2.0 [facility] Comment on above: Performed By: #### 2 064-4 #### JOLENE Cantu ([id number]) [facility] ([facility]) [address] [place] [address] 51102 Eosinophils (Bld) [#/Vol] 0.08 x10*3/uL Normal 0.00-0.70 [facility] Comment on above: Performed By: #### 2 064-4 #### JOLENE Cantu ([id number]) [facility] ([facility]) [address] [place] [address] 78484 Eosinophils/100 WBC (Bld) 0.7 % Normal 0.0-6.0 [facility] Comment on above: Performed By: #### 2 064-4 #### JOLENE Cantu ([id number]) [facility] ([facility]) [address] [place] [address] 14591 Erythrocyte distribution width (RBC) [Ratio] 13.0 % Normal 11.5-14.5 [facility] Comment on above: Performed By: #### 2 064-4 #### JOLENE Cantu ([id number]) [facility] ([facility]) [address] [place] [address] Hematocrit (Bld) [Volume fraction] 42.2 % Normal 36.0-46.0 [facility] Comment on above: Performed By: #### 2 064-4 #### JOLENE Cantu ([id number]) [facility] ([facility]) [address] [place] [address] 66451 Hemoglobin (Bld) [Mass/Vol] 14.9 g/dL Normal 12.0-16.0 [facility] Comment on above: Performed By: #### 2 064-4 #### JOLENE Cantu ([id number]) [facility] ([facility]) [address] [place] [address] 20650 Immature granulocytes (Bld) [#/Vol] 0.04 x10*3/uL Normal 0.00-0.70 [facility] Comment on above: Performed By: #### 2 064-4 #### JOLENE Cantu ([id number]) [facility] ([facility]) [address] [place] [address] 05561 Immature granulocytes/100 WBC (Bld) 0.3 % Normal 0.0-0.9 [facility] Comment on above: Result Comment: Aspen ture Granulocyte Count (IG) includes promyelocytes, myelocytes and metamyelocytes but does not include bands. Percent differential counts (%) should be interpreted in the context of the absolute cell counts (cells/UL). Performed By: #### 2 064-4 #### JOLENE Cantu ([id number]) [facility] ([facility]) [address] [place] [address] Lymphocytes (Bld) [#/Vol] 2.56 x10*3/uL Normal 1.20-4.80 [facility] Comment on above: Performed By: #### 2 064-4 #### JOLENE RONQUILLO L ([id number]) [facility] ([facility]) [address] [place] [address] 68607 Lymphocytes/100 WBC (Bld) 22.2 % Normal 13.0-44.0 [facility] Comment on above: Performed By: #### 2 064-4 #### JOLENE Cantu ([id number]) [facility] ([facility]) [address] [place] [address] 16425 MCH (RBC) [Entitic mass] 31.0 pg Normal 26.0-34.0 [facility] Comment on above: Performed By: #### 2 064-4 #### JOLENE Cantu ([id number]) [facility] ([facility]) [address] [place] [address] 13473 MCHC (RBC) [Mass/Vol] 35.3 g/dL Normal 32.0-36.0 [facility] Comment on above: Performed By: #### 2 064-4 #### JOLENE Cantu ([id number]) [facility] ([facility]) [address] [place] [address] 12059 MCV (RBC) [Entitic vol] 88 fL Normal 80-100 [facility] Comment on above: Performed By: #### 2 064-4 #### JOLENE Cantu ([id number]) [facility] ([facility]) [address] [place] [address] 57581 Monocytes (Bld) [#/Vol] 0.70 x10*3/uL Normal 0.10-1.00 [facility] Comment on above: Performed By: #### 2 064-4 #### JOLENE Cantu ([id number]) [facility] ([facility]) [address] [place] [address] 77283 Monocytes/100 WBC (Bld) 6.1 % Normal 2.0-10.0 [facility] Comment on above: Performed By: #### 2 064-4 #### JOLENE Cantu ([id number]) [facility] ([facility]) [address] [place] [address] 77041 Neutrophils (Bld) [#/Vol] 8.12 x10*3/uL High 1.20-7.70 [facility] Comment on above: Result Comment: Perc ent differential counts (%) should be interpreted in the context of the absolute cell counts (cells/uL). Performed By: #### 2 064-4 #### JOLENE Cantu ([id number]) [facility] ([facility]) [address] [place] [address] Neutrophils/100 WBC (Bld) 70.5 % Normal 40.0-80.0 [facility] Comment on above: Performed By: #### 2 064-4 #### JOLENE Cantu ([id number]) [facility] ([facility]) [address] [place] [address] Nucleated RBC/100 WBC (Bld) [Ratio] 0.0 /100 WBCs Normal 0.0-0.0 [facility] Comment on above: Performed By: #### 2 064-4 #### JOLENE Cantu ([id number]) [facility] ([facility]) [address] [place] [address] Platelets (Bld) [#/Vol] 366 x10*3/uL Normal 150-450 [facility] Comment on above: Performed By: #### 2 064-4 #### JOLENE Cantu ([id number]) [facility] ([facility]) [address] [place] [address] 40416 RBC (Bld) [#/Vol] 4.80 x10*6/uL Normal 4.00-5.20 [facility] Comment on above: Performed By: #### 2 064-4 #### JOLENE Cantu ([id number]) [facility] ([facility]) [address] [place] [address] WBC (Bld) [#/Vol] 11.5 x10*3/uL High 4.4-11.3 [facility] Comment on above: Performed By: #### 2 064-4 #### JOLENE Cantu ([id number]) [facility] [facility] [address] [place] [address] Comprehensive metabolic 2000 panelon 11-12-2023 Albumin BCP dye [Mass/Vol] 4.2 g/dL Normal 3.4-5.0 [facility] Comment on above: Performed By: #### 2 064-4 #### JOLENE Cantu ([id number]) [facility] ([facility]) [address] [place] [address] ALP [Catalytic activity/Vol] 86 U/L Normal 33-110 [facility] Comment on above: Performed By: #### 2 064-4 #### JOLENE Cantu ([id number]) [facility] ([facility]) [address] [place] [address] ALT With P-5'-P [Catalytic activity/Vol] 19 U/L Normal 7-45 [facility] Comment on above: Result Comment: Katia ents treated with Sulfasalazine may generate falsely decreased results for ALT. Performed By: #### 2 064-4 #### JOLENE Cantu ([id number]) [facility] ([facility]) [address] [place] [address] Anion gap [Moles/Vol] 15 mmol/L Normal 10-20 [facility] Comment on above: Performed By: #### 2 064-4 #### JOLENE Cantu ([id number]) [facility] ([facility]) [address] [place] [address] AST With P-5'-P [Catalytic activity/Vol] 22 U/L Normal 9-39 [facility] Comment on above: Performed By: #### 2 064-4 #### JOLENE Cantu ([id number]) [facility] ([facility]) [address] [place] [address] Bilirubin [Mass/Vol] 0.5 mg/dL Normal 0.0-1.2 [facility] Comment on above: Performed By: #### 2 064-4 #### JOLENE Cantu ([id number]) [facility] ([facility]) [address] [place] [address] Calcium [Mass/Vol] 9.1 mg/dL Normal 8.6-10.6 [facility] Comment on above: Performed By: #### 2 064-4 #### JOLENE Cantu ([id number]) [facility] ([facility]) [address] [place] [address] Chloride [Moles/Vol] 103 mmol/L Normal 98-107 [facility] Comment on above: Performed By: #### 2 064-4 #### JOLENE Cantu ([id number]) [facility] ([facility]) [address] [place] [address] 76125 CO2 [Moles/Vol] 24 mmol/L Normal 21-32 [facility] Comment on above: Performed By: #### 2 064-4 #### JOLENE Cantu ([id number]) [facility] ([facility]) [address] [place] [address] Creatinine [Mass/Vol] 0.84 mg/dL Normal 0.50-1.05 [facility] Comment on above: Performed By: #### 2 064-4 #### JOLENE Cantu ([id number]) [facility] ([facility]) [address] [place] [address] Glomerular filtration rate/1.73 sq M.predicted 87 mL/min/1.73m*2 Normal >60 [facility] Comment on above: Result Comment: Calc ulations of estimated GFR are performed using the 2020 CKD-EPI Study Refit equation without the race variable for the IDMS-Traceable creatinine methods. https://jasn.asnjournals.org/content/early/ASN.82871 73184 Performed By: #### 2 064-4 #### JOLENE Cantu ([id number]) [facility] ([facility]) [address] [place] [address]408 Glucose [Mass/Vol] 94 mg/dL Normal 74-99 [facility] Comment on above: Performed By: #### 2 064-4 #### JOLENE Cantu ([id number]) [facility] ([facility]) [address] [place] [address] Potassium [Moles/Vol] 3.6 mmol/L Normal 3.5-5.3 [facility] Comment on above: Performed By: #### 2 064-4 #### JOLENE Cantu ([id number]) [facility] ([facility]) [address] [place] [address] Protein [Mass/Vol] 8.1 g/dL Normal 6.4-8.2 [facility] Comment on above: Performed By: #### 2 064-4 #### JOLENE Cantu ([id number]) [facility] ([facility]) [address] [place] [address]35 Sodium [Moles/Vol] 138 mmol/L Normal 136-145 [facility] Comment on above: Performed By: #### 2 064-4 #### JOLENE Cantu ([id number]) [facility] ([facility]) [address] [place] [address] 36510 Urea nitrogen [Mass/Vol] 12 mg/dL Normal 6-23 [facility] Comment on above: Performed By: #### 2 064-4 #### JOLENE Cantu ([id number]) [facility] ([facility]) [id number] [place] [address] ESR Westergren method (Bld) [Velocity]on 11-12-2023 ESR (Bld) [Velocity] 27 mm/h High 0-20 [facility] Comment on above: Performed By: #### 2 064-4 #### JOLENE Cantu ([id number]) [facility] ([facility]) [address] [place] [address]268 Automated basophil %Ordered By: Dalton Ceja on 11-10-2023 Basophils/100 WBC (Bld) 0.2 % Normal . [facility] Comment on above: Performed By: #### C MP, CUBLD, CBC #### [facility] [address] [place], [place] [address] Automated basophil countOrde red By: Dalton Ceja on 11-10-2023 Basophils (Bld) [#/Vol] 0.0 10*3/uL Normal 0.0-0.2 [facility] Comment on above: Performed By: #### C DEYVI PARKINSON, CBC #### [address] Automated blood monocyte cou ntOrdered By: Dalton Ceja on 11-10-2023 Monocytes (Bld) [#/Vol] 0.7 10*3/uL Normal 0.0-0.8 [facility] Comment on above: Performed By: #### C DEYVI PARKINSON, CBC #### [address] Automated eosinophil %Ordere d By: Dalton Ceja on 11-10-2023 Eosinophils/100 WBC (Bld) 1.2 % Normal . [facility] Comment on above: Performed By: #### C DEYVI PARKINSON, CBC #### [address] Automated eosinophil countOr dered By: Dalton Ceja on 11-10-2023 Eosinophils (Bld) [#/Vol] 0.1 10*3/uL Normal 0.0-0.45 [facility] Comment on above: Performed By: #### C DEYVI PARKINSON, CBC #### [address] Automated monocyte %Ordered By: Dalton Ceja on 11-10-2023 Monocytes/100 WBC (Bld) 6.7 % Normal . [facility] Comment on above: Performed By: #### C DEYVI PARKINSON, CBC #### [address] Automated neutrophil %Ordere d By: Dalton Ceja on 11-10-2023 Neutrophils/100 WBC (Bld) 68.2 % Normal . [facility] Comment on above: Performed By: #### C DEYVI PARKINSON, CBC #### [address] Bacterial blood cultureOrder ed By: Dalton Ceja on 11-10-2023 Bacteria identified Cx Nom (Bld) NO GROWTH 5 DAYS [facility] Blood Cultureon 11-10-2023 Bacteria identified Cx Nom (Bld) NO GROWTH 5 DAYS PERFORMED BY: [place] [address] PATHOLOGIST RING MAKING 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 JASON WILSON M.D. Normal [facility] Comment on above: Performed By: #### C DEYVI PARKINSON, CBC #### [address] C reactive protein [Mass/vol ume] in Serum or PlasmaOrdered By: Dalton Ceja on 11-10-2023 CRP [Mass/Vol] 0.9 mg/dL High 0.0-0.5 [facility] C-Reactive Proteinon 024 C-Reactive Protein 0.9 mg/dL High 0.0-0.5 [facility] Comment on above: Result Comment: PERF ORMED BY: [place] [address] PATHOLOGIST RING MAKING 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 JASON WILSON M.D. Performed By: #### C DEYVI PARKINSON, CBC #### [address] Complete Blood Count Auto Di ffon 11-10-2023 Mean Corpuscular HGB Conc 33.3 g/dL Normal 32.0-35.0 [facility] Comment on above: Performed By: #### C DEYVI PARKINSON, CBC #### [address] Monocytes/100 WBC (Bld) 19.08 % Normal 0.00-20.00 [facility] Comment on above: Performed By: #### C DEYVI PARKINSON, CBC #### [address] NRBC% 0.0 /100{WBC} Normal 0-0.5 [facility] Comment on above: Performed By: #### C DEYVI PARKINSON, CBC #### [address] Erythrocyte Sedimentation Ra karen 11-10-2023 ESR (Bld) [Velocity] 33 mm/h High 0-19 [facility] Comment on above: Result Comment: PERF ORMED BY: [place] [address] PATHOLOGIST RING MAKING 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 JASON WILSON M.D. Performed By: #### C DEYVI PARKINSON, CBC #### [address] Erythrocyte distribution wid th [Ratio] by Automated countOrdered By: Dalton Ceja on 11-10-2023 Erythrocyte distribution width (RBC) [Ratio] 13.6 % Normal 11.9-15.3 [facility] Comment on above: Performed By: #### C DEYVI PARKINSON, CBC #### [address] Erythrocyte sedimentation ra te by Photometric methodOrdered By: Dalton Ceja on 11-10-2023 ESR Photometric method (Bld) [Velocity] 33 mm/hr High 0-19 [facility] Erythrocytes [#/volume] in B lood by Automated countOrdered By: Dalton Ceja on 11-10-2023 RBC (Bld) [#/Vol] 4.15 10*6/uL Normal 3.60-5.00 [facility] Comment on above: Performed By: #### C DEYVI PARKINSON, CBC #### [address] Hematocrit [Volume Fraction] of Blood by Automated countOrdered By: Dalton Ceja on 11-10-2023 Hematocrit (Bld) [Volume fraction] 39.0 % Normal 34.0-46.4 [facility] Comment on above: Performed By: #### C DEYVI PARKINSON, CBC #### [address] Hemoglobin [Mass/volume] in BloodOrdered By: Dalton Ceja on 11-10-2023 Hemoglobin (Bld) [Mass/Vol] 13.0 g/dL Normal 11.8-15.4 [facility] Comment on above: Performed By: #### C DEYVI PARKINSON, CBC #### [facility] [address] [place] [address] [place] Lactate [Moles/volume] in Se rum or PlasmaOrdered By: Dalton Ceja on 11-10-2023 Lactate [Moles/Vol] 0.7 mmol/L Normal 0.5-2.2 [facility] Comment on above: Result Comment: PERF ORMED BY: [place] [address] PATHOLOGIST RING MAKING 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 JASON WILSON M.D. Performed By: #### U HCG, ADDONUAPLUS #### [address] Leukocytes [#/volume] correc lisa for nucleated erythrocytes in Blood by Automated counOrdered By: Dalton Ceja on 11-10-2023 WBC corrected for nucl RBC Auto (Bld) [#/Vol] 10.1 10*3/uL 3.8-11.6 [facility] Leukocytes [#/volume] in Blo od by Automated countOrdered By: Dalton Ceja on 11-10-2023 WBC (Bld) [#/Vol] 10.1 10*3/uL Normal 3.8-11.6 [facility] Comment on above: Performed By: #### C DEYVI PARKINSON, CBC #### [place] [address] [place] Lymphocytes [#/volume] in Bl ood by Automated countOrdered By: Dalton Ceja on 11-10-2023 Lymphocytes (Bld) [#/Vol] 2.4 10*3/uL Normal 1.00-4.8 [facility] Comment on above: Performed By: #### C DEYVI PARKINSON, CBC #### [place] [address] [place] Lymphocytes/100 leukocytes i n Blood by Automated countOrdered By: Dalton Ceja on 11-10-2023 Lymphocytes/100 WBC (Bld) 23.7 % Normal . [facility] Comment on above: Performed By: #### C DEYVI PARKINSON, CBC #### [address] [place] [address] [place] MCH [Entitic mass] by Automa lisa countOrdered By: Dalton Ceja on 11-10-2023 MCH (RBC) [Entitic mass] 31.3 pg Normal 24.7-34.3 [facility] Comment on above: Performed By: #### C DEYVI PARKINSON, CBC #### [facility] [address] MCHC Auto (RBC) [Mass/Vol]Or dered By: Dalton Ceja on 11-10-2023 MCHC (RBC) [Mass/Vol] 33.3 g/dL 32.0-35.0 [facility] MCV [Entitic volume] by Auto mated countOrdered By: Dalton Ceja on 11-10-2023 MCV (RBC) [Entitic vol] 94.0 fL Normal 80-100 [facility] Comment on above: Performed By: #### C DEYVI PARKINSON, CBC #### [facility] [address] [place] [address] Monocyte distribution width [Entitic volume] in Blood by AutomatedOrdered By: Dalton Ceja on 11-10-2023 Monocyte distribution width Auto (Bld) [Entitic vol] 19.08 % 0.00-20.00 [facility] Neutrophils [#/volume] in Bl ood by Automated countOrdered By: Dalton Ceja on 11-10-2023 Neutrophils (Bld) [#/Vol] 6.9 10*3/uL Normal 1.8-7.7 [facility] Comment on above: Performed By: #### C DEYVI PARKINSON, CBC #### [facility] [address] [place] [address] Nucleated erythrocytes [Pres ence] in Blood by Automated countOrdered By: Dalton Ceja on 11-10-2023 Nucleated RBC Auto Ql (Bld) 0.0 /100{WBC} 0-0.5 [facility] Platelet mean volume [Entiti c volume] in Blood by Automated countOrdered By: Dalton Ceja on 11-10-2023 Platelet mean volume (Bld) [Entitic vol] 8.9 fL Normal 6.3-10.7 [facility] Comment on above: Performed By: #### C DEYVI PARKINSON, CBC #### [facility] [address] Platelets [#/volume] in Bloo d by Automated countOrdered By: Dalton Ceja on 11-10-2023 Platelets (Bld) [#/Vol] 300 10*3/uL Normal 150-450 [facility] Comment on above: Performed By: #### C DEYVI PARKINSON, CBC #### [facility] [address] Basic metabolic 2000 panelon 11-09-2023 Anion gap [Moles/Vol] 12 mmol/L Normal 10-20 [facility] Comment on above: Performed By: #### 2 4321-2 #### GIOVANNI BURNETT ([id number]) [facility] ([facility]) [address] [place] [address]291 Calcium [Mass/Vol] 8.5 mg/dL Low 8.6-10.3 [facility] Comment on above: Performed By: #### 2 4321-2 #### GIOVANNI BURNETT ([id number]) [facility] ([facility]) [address] [place] [address] 27522 Chloride [Moles/Vol] 105 mmol/L Normal 98-107 [facility] Comment on above: Performed By: #### 2 4321-2 #### GIOVANNI BURNETT ([id number]) [facility] ([facility]) [address] [place] [address] 84655 CO2 [Moles/Vol] 24 mmol/L Normal 21-32 [facility] Comment on above: Performed By: #### 2 4321-2 #### GIOVANNI BURNETT ([id number]) [facility] ([facility]) [address] [place] [address] 47407 Creatinine [Mass/Vol] 0.77 mg/dL Normal 0.50-1.05 [facility] Comment on above: Performed By: #### 2 4321-2 #### GIOVANNI BURNETT ([id number]) [facility] ([facility]) [address] [place] [address] 59101 GFR/1.73 sq M.predicted MDRD (S/P/Bld) [Vol rate/Area] mL/min/{1.73_m2} Normal >60 [facility] Comment on above: Result Comment: Calc ulations of estimated GFR are performed using the 2020 CKD-EPI Study Refit equation without the race variable for the IDMS-Traceable creatinine methods. https://jasn.asnjournals.org/content/early//ASN.31152 73924 Performed By: #### 2 4321-2 #### GIOVANNI BURNETT ([id number]) [facility] ([facility]) [address] [place] [address] 92625 Glucose [Mass/Vol] 104 mg/dL High 74-99 [facility] Comment on above: Performed By: #### 2 4321-2 #### GIOVANNI BURNETT ([id number]) [facility] ([facility]) [address] [place] [address] 61704 Potassium [Moles/Vol] 3.7 mmol/L Normal 3.5-5.3 [facility] Comment on above: Performed By: #### 2 4321-2 #### GIOVANNI BURNETT ([id number]) [facility] ([facility]) [address] [place] [address] 45922 Sodium [Moles/Vol] 137 mmol/L Normal 136-145 [facility] Comment on above: Performed By: #### 2 4321-2 #### GIOVANNI BURNETT ([id number]) [facility] ([facility]) [address] [place] [address] 35999 Urea nitrogen [Mass/Vol] 10 mg/dL Normal 6-23 [facility] Comment on above: Performed By: #### 2 4321-2 #### GIOVANNI BURNETT ([id number]) [facility] ([facility]) [address] [place] [address] 78275 C reactive proteinon 024 CRP [Mass/Vol] 1.06 mg/dL High <1.00 [facility] Comment on above: Performed By: #### 1 988-5 #### GIOVANNI BURNETT ([id number]) [facility] ([facility]) [address] [place] [address] 18651 CBC W Auto Differential pane l (Bld)on 11-09-2023 Basophils (Bld) [#/Vol] 0.01 x10*3/uL Normal 0.00-0.10 [facility] Comment on above: Performed By: #### 5 7021-8 #### GIOVANNI BURNETT ([id number]) [facility] ([facility]) [address] [place] [address] 36913 Basophils/100 WBC (Bld) 0.1 % Normal 0.0-2.0 [facility] Comment on above: Performed By: #### 5 7021-8 #### GIOVANNI BURNETT ([id number]) [facility] ([facility]) [address] [place] [address] 88873 Eosinophils (Bld) [#/Vol] 0.10 x10*3/uL Normal 0.00-0.70 [facility] Comment on above: Performed By: #### 5 7021-8 #### GIOVANNI BURNETT ([id number]) [facility] ([facility]) [address] [place] [address] 66932 Eosinophils/100 WBC (Bld) 1.0 % Normal 0.0-6.0 [facility] Comment on above: Performed By: #### 5 7021-8 #### GIOVANNI BURNETT ([id number]) [facility] ([facility]) [address] [place] [address] 77691 Erythrocyte distribution width (RBC) [Ratio] 12.8 % Normal 11.5-14.5 [facility] Comment on above: Performed By: #### 5 7021-8 #### GIOVANNI BURNETT ([id number]) [facility] ([facility]) [address] [place] [address] 49414 Hematocrit (Bld) [Volume fraction] 41.3 % Normal 36.0-46.0 [facility] Comment on above: Performed By: #### 5 7021-8 #### GIOVANNI BURNETT ([id number]) [facility] ([facility]) [address] [place] [address] 07518 Hemoglobin (Bld) [Mass/Vol] 13.5 g/dL Normal 12.0-16.0 [facility] Comment on above: Performed By: #### 5 7021-8 #### GIOVANNI BURNETT ([id number]) [facility] ([facility]) [address] [place] [address] 75303 Immature granulocytes (Bld) [#/Vol] 0.03 x10*3/uL Normal 0.00-0.70 [facility] Comment on above: Performed By: #### 5 7021-8 #### GIOVANNI BURNETT ([id number]) [facility] ([facility]) [address] [place] [address] 63675 Immature granulocytes/100 WBC (Bld) 0.3 % Normal 0.0-0.9 [facility] Comment on above: Result Comment: Aspen ture Granulocyte Count (IG) includes promyelocytes, myelocytes and metamyelocytes but does not include bands. Percent differential counts (%) should be interpreted in the context of the absolute cell counts (cells/UL). Performed By: #### 5 7021-8 #### GIOVANNI BURNETT ([id number]) [facility] ([facility]) [address] [place] [address] 24518 Lymphocytes (Bld) [#/Vol] 2.13 x10*3/uL Normal 1.20-4.80 [facility] Comment on above: Performed By: #### 5 7021-8 #### GIOVANNI BURNETT ([id number]) [facility] ([facility]) [address] [place] [address] 37555 Lymphocytes/100 WBC (Bld) 21.4 % Normal 13.0-44.0 [facility] Comment on above: Performed By: #### 5 7021-8 #### GIOVANNI BURNETT ([id number]) [facility] ([facility]) [address] [place] [address] 93954 MCH (RBC) [Entitic mass] 31.0 pg Normal 26.0-34.0 [facility] Comment on above: Performed By: #### 5 7021-8 #### GIOVANNI BURNETT ([id number]) [facility] ([facility]) [address] [place] [address] 10548 MCHC (RBC) [Mass/Vol] 32.7 g/dL Normal 32.0-36.0 [facility] Comment on above: Performed By: #### 5 7021-8 #### GIOVANNI BURNETT ([id number]) [facility] ([facility]) [address] [place] [address] 08601 MCV (RBC) [Entitic vol] 95 fL Normal 80-100 [facility] Comment on above: Performed By: #### 5 7021-8 #### GIOVANNI BURNETT ([id number]) [facility] ([facility]) [address] [place] [address] 17079 Monocytes (Bld) [#/Vol] 0.55 x10*3/uL Normal 0.10-1.00 [facility] Comment on above: Performed By: #### 5 7021-8 #### GIOVANNI BURNETT ([id number]) [facility] ([facility]) [address] [place] [address] 36549 Monocytes/100 WBC (Bld) 5.5 % Normal 2.0-10.0 [facility] Comment on above: Performed By: #### 5 7021-8 #### GIOVANNI BURNETT ([id number]) [facility] ([facility]) [address] [place] [address] 04673 Neutrophils (Bld) [#/Vol] 7.14 x10*3/uL Normal 1.20-7.70 [facility] Comment on above: Result Comment: Perc ent differential counts (%) should be interpreted in the context of the absolute cell counts (cells/uL). Performed By: #### 5 7021-8 #### GIOVANNI BURNETT ([id number]) [facility] ([facility]) [address] [place] [address] 71246 Neutrophils/100 WBC (Bld) 71.7 % Normal 40.0-80.0 [facility] Comment on above: Performed By: #### 5 7021-8 #### GIOVANNI BURNETT ([id number]) [facility] ([facility]) [address] [place] [address] 19416 Nucleated RBC/100 WBC (Bld) [Ratio] 0.0 /100 WBCs Normal 0.0-0.0 [facility] Comment on above: Performed By: #### 5 7021-8 #### GIOVANNI BURNETT ([id number]) [facility] ([facility]) [address] [place] [address] 45325 Platelets (Bld) [#/Vol] 308 x10*3/uL Normal 150-450 [facility] Comment on above: Performed By: #### 5 7021-8 #### GIOVANNI BURNETT ([id number]) [facility] ([facility]) [address] [place] [address] 80018 RBC (Bld) [#/Vol] 4.36 x10*6/uL Normal 4.00-5.20 [facility] Comment on above: Performed By: #### 5 7021-8 #### GIOVANNI BURNETT ([id number]) [facility] ([facility]) [address] [place] [address] 46421 WBC (Bld) [#/Vol] 10.0 x10*3/uL Normal 4.4-11.3 [facility] Comment on above: Performed By: #### 5 7021-8 #### GIOVANNI BURNETT ([id number]) [facility] ([facility]) [address] [place] [address] LUMBAR SPINE W IV CONTRAS Ton 11-09-2023 CT LUMBAR SPINE W IV CONTRAST STUDY: CT Lumbar Spine with IV Contrast; 11/09/2023 at 2:52 PM. INDICATION: Pain and swelling. COMPARISON: MR lumbar 10/31/2023, 10/31/2022. ACCESSION NUMBER(S): [id number] ORDERING CLINICIAN: JAROCHO TRONCOSO TECHNIQUE: CT of the lumbar spine was performed with intravenous contrast. Sagittal and coronal reconstructions were generated. Omnipaque 350 70 mL was administered intravenously. Automated mA/kV exposure control was utilized and patient examination was performed in strict accordance with principles of ALARA. FINDINGS: No compression deformities are visualized lumbar spine. No spondylolisthesis is noted. No pars defects are seen. Disc bulging at L4-5 and L5-S1. There is impingement upon the lateral bilaterally at these levels. Evaluate for an epidural abscess is limited on this is subcutaneous fat stranding posterior to spinous processes from L1 through L4, indicative of cellulitis. There is a small fluid collection posterior to the L3 spinous process, measured at 2.2 x 1.2 x 1.7 cm(Series 2, Image 74; Series 8, Image 65), suspicious for an abscess. There is subcutaneous edema over the upper left buttock region, suggestive of cellulitis(Series 2, Image 107; Series 8, Image 32). No prominent edema is seen within the adjacent psoas musculature. No enlarged lymph nodes are seen in the visualized iliac chains. No hydronephrosis is seen within either kidney. There are are bilateral adrenal nodules. The right nodule is measured at 1.3 x 1.1 cm. The left nodule is measured at 1.1 x 1.0 cm. IMPRESSION: 1. Fat stranding posterior to the spinous processes of L1-L4, suspicious for deep cellulitis. 2. Small fluid collection posterior to the L3 spinous process, suspicious for an abscess. 3. Second focal area of cellulitis seen over the upper left buttock region. 4. Disc bulging with spinal stenoses at L4-5 and L5-S1. Evaluation for an epidural abscess is limited on this modality. 5. Indeterminate bilateral adrenal nodules. Follow-up with adrenal protocol CT is recommended. Signed by Doc Vela MD [facility] ESR Westergren method (Bld) [Velocity]on 11-09-2023 ESR (Bld) [Velocity] 34 mm/h High 0-20 [facility] Comment on above: Performed By: #### 4 537-7 #### DAVILA LEX ([id number]) [facility] ([facility]) [address] [place] [address] MR THORACIC SPINE WO IV CONT [facility]23 MR THORACIC SPINE WO IV CONTRAST Interpreted By: Peter Smith, STUDY: MR THORACIC SPINE WO IV CONTRAST; 11/08/2023 8:25 am INDICATION: Signs/Symptoms:presurgi bryce planning for reimplant of thoracic spinal cord stimulator leads. COMPARISON: None. ACCESSION NUMBER(S): [id number] ORDERING CLINICIAN: CHIRGA REYNOSO TECHNIQUE: Sagittal T1, T2, STIR and axial T2 and T1 weighted MR images of the thoracic spine were obtained. FINDINGS: The thoracic vertebral bodies are in gross anatomic alignment. There are mild degenerative signal changes noted along endplates within the thoracic and visualized lower cervical region. There is multilevel spondylosis. C6-7: There is a posterior disc/osteophyte complex and mild ligamentum flavum hypertrophy contributing to effacement of the ventral and dorsal subarachnoid space. There is flattening of the ventral cervical spinal cord which is draped over the disc/osteophyte complex. There are degenerative uncovertebral joint changes and degenerative facet changes contributing to encroachment upon the neural foramen right greater than left. C7-T1: There is no significant spinal canal or neural foraminal narrowing. T1-2: There is no significant spinal canal narrowing. T2-3: There is no significant spinal canal narrowing. T3-4: There are degenerative facet changes contributing to mild encroachment upon the left dorsal spinal canal. T4-5: There are degenerative facet changes without significant spinal canal narrowing. T5-6: There are degenerative facet changes without significant spinal canal narrowing. T6-7: There are degenerative facet changes without significant spinal canal narrowing. T7-8: There are degenerative facet changes without significant spinal canal narrowing. T8-9: There are degenerative facet changes without significant spinal canal narrowing. T9-10: There are degenerative facet changes without significant spinal canal narrowing. T10-11: There are degenerative facet changes left greater than right contributing to partial effacement of the left dorsal subarachnoid space. There is mild overall spinal canal narrowing. T11-12: There are mild degenerative facet changes without significant spinal canal narrowing. T12-L1: Mild degenerative facet changes without significant spinal canal or neural foraminal narrowing. 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 L1-2: The sagittal images demonstrate no significant spinal canal or neural foraminal narrowing. No axial images were obtained through this level limiting further evaluation. IMPRESSION: There is multilevel spondylosis as described above. MACRO: None Signed by: Peter Smith 11/08/2023 9:53 AM Dictation workstation: [id number] Normal [facility] ED Note-Physicianon 11-06-19 ED Note-Physician Normal [facility] Comment on above: Result Comment: Elec tronically Signed By: Zhane Castro PA-C\.br\Date and Time Signed: 11/05/23 23:31 EDT\.br\Electronically Co-Signed By: Pedro Pablo Fletcher DO\.br\Date and Time Co-Signed: 11/06/23 01:08 EDT Staphylococcus aureus.methic illin resistant isolateon 11-06-2023 MRSA isol Org specific cx Ql (Nose) Test: Staphylococcus aureus/MRSA colonization, Culture Specimen Source: Nares/Axilla/Groin Specimen Type: Swab Specimen Date: 11/06/2023930 Result Date: 11/08/2023 1203 Result Status: Final result Abnormal: No Resulting Lab: [facility] [id number] [place] [address] CULTURE No Staphylococcus aureus isolated Normal [facility] Comment on above: Performed By: #### 5 2969-3 #### JOLENE Cantu ([id number]) [facility] ([facility]) [address] [place] [address] ED Clinical Summaryon 2023 ED Clinical Summary Normal [facility] ED Patient Education Noteon 11-05-2023 ED Patient Education Note Normal [facility] ED Patient Summaryon 024 ED Patient Summary Normal [facility] ED Clinical Summaryon 2023 ED Clinical Summary (Inserted Image. Darlene ble to display) [place] [id number] ED Clinical Summary Person Information Name: Jerad Tracy/[facility] Age: 48 Years : 1975 Sex: Female PCP: Marital Status: Phone: Race: White Ethnicity: Not or Language: Serbian Visit Reason: Back pain; back pain Acuity: 4 Enc Type: Emergency Med Service: Emergency Medicine Arrival: 11/02/2023 14:44:17 Discharge: 11/02/2023 17:11:00 LOS: 000 02:27 Checkin: 11/02/2023 14:44:17 Checkout: 11/02/2023 17:11:00 Dispo Type: Home or Self Care Address: [address] [place] [address] [phone] Provider Notes: Diagnosis: 1:Chronic low back pain Problems No Problems Documented Smoking Status: Smoking Status 10 or more cigarettes (1/2 pack or more)/day in last 30 days Functional Status: Sensory Deficits: History of Falls: Mobility Assistance Prior to Admission: ADLs: Current Level of Assistance for Self-Care/Mobility: Cognitive Status: Allergies HYDROcodone (hives) penicillin (hives) Laboratory or Other Results This Visit (last charted value for your 11/02/2023 visit) No Laboratory or Other Results This Visit Measurements: Height: Weight: 114.5 kg Blood Pressure: /89 mmHg BMI: Procedures No Procedures Documented Immunizations [...] Refills: 0. Care Team Members: Attending Physician: Abby Villareal PA-C Consulting Physician: Referring Physician: Provider Role Assigned Unassigned Abby Villareal PA-C ED MidLevel 11/02/2023 16:05:08 Janki Paz ED Nurse 11/02/2023 16:08:06 Follow up: With: Address: When: Emergency Room , only if needed Comments: Return for any worsening symptoms, inability to ambualte, loss of bowel/bladder control, weakness or other concerns With: Address: When: Family Physician Within 2 to 4 days Comments: Recheck today's symptoms Discharge Orders: Discharge Patient 11/02/23 17:08:00 EDT, Discharge to Home, Self Patient Education Information: CHRONIC PAIN [facility] Poison Help line: . [facility] Hotline: [place] Tobacco Quit Line: [place], [place]) [address]: [phone] [place], [place]) [address]: [phone] [facility] [address] [place], [place]: [phone] [facility] ED Note-Physicianon 11-02-19 ED Note-Physician Chief Complaint hx lower back surgeries, had a stimulator, taken out now. c/o increased back pain History of Present Illness Patient presents to ED c/o acute on chronic low back pain x 2 weeks. She reports recently having a nerve stimulator removed and is scheduled to see her surgeon in 4 days to have a new one placed. Patient is currently here visiting family for a few weeks and believes the car ride here exacerbated her pain. She denies injury, bruising, swelling, abdominal pain, dysuria, hematuria, incontinence, weakness, numbness and fever. Symptoms are aggravated by movement/pressure and alleviated by rest. Patient has had similar symptoms in the past, she takes Oxycodone at home for her pain. Review of Systems General: [Negative for fever, chills, weakness, malaise] Head/Face: [Negative for injury, pain] Eyes: [Negative for injury, redness, pain, discharge] Neck: [Negative for injury, pain, swelling, stiffness] Cardiovascular: [Negative for chest pain, palpitations, edema] Respiratory: [Negative for shortness of breath, cough, wheezing, pleuritic chest pain] Abdomen/GI: [Negative for abdominal pain, nausea, vomiting, diarrhea] Back: [Positive for low back pain. Negative for injury, bruising, swelling] : [Negative for frequency, dysuria, hematuria, hesitancy] Musculoskeletal/Extremi ty: [Negative for injury, pain, decreased range of motion, swelling, numbness, tingling, weakness] Skin: [Negative for injury, rash, discoloration] Neuro: [Negative for urinary/fecal incontinence, numbness, tingling, saddle paresthesias] All other systems reviewed are negative and normal Physical Exam General: [Alert, awake, afebrile, no apparent distress] Eyes: [PERRL, extraocular movements intact, clear conjunctiva] Head/Face: [Normocephalic, atraumatic] Neck: [Non-tender, supple, no nuchal rigidity, full range of motion] Cardiovascular: [Regular rate and rhythm, no appreciated murmurs, normal S1 and S2, strong radial pulses w/intact distal perfusion] Respiratory: [Lungs clear to auscultation w/out wheezes, rhonchi, or rales, normal excursion, no accessory muscle use, no stridor] Abdomen/GI: [Soft non-tender, non-distended, no palpable masses, no rebound, no guarding. Bowel sounds active in all quadrants] Back: [Low back diffusely tender to palpation. Surgical incision to lumbar spine w/dissolvable sutures that are visible, no erythema, swelling or drainage. Normal range of motion. No swelling, no ecchymosis. Straight leg raises normal] : [No costovertebral angle tenderness] Musculoskeletal/Extremi ty: [Extremities are non-tender to palpation, no gross deformity, no edema, no erythema. Normal range of motion. Pulses and sensation intact] Skin: [[place], warm, dry, no injury, no rashes] Neuro: [Alert and oriented x 3, GCS 15, Normal mentation and speech. Moves all extremities w/out motor or sensory deficit, gait is steady, strength normal in all extremities] Psych: [Normal mood and affect, thought process is clear and linear] Vitals & Measurements T: 36.7 ?C (Oral) HR: 81 (Peripheral) RR: 18 BP: 144/89 SpO2: 97% HT: 160 cm WT: 114.5 kg (Dosing) Additional Vitals No qualifying data available. Medical Decision Making MEDICAL DECISION MAKING Number and Complexity of Problems Differential Diagnosis: acute on chronic back pain MDM Data External documents reviewed: previous ED note My EKG interpretation: _ My CT interpretation: _ My X-ray interpretation: _ My Ultrasound interpretation: _ Decision rules/scores evaluated: _ Discussed with: _ Decision rules/scores evaluated: _ ? HEART Score: Not Completed ? PERC Rule: _ ? NEXUS C-spine Criteria: _ ? [place] Ankle Rule: _ ? [place] Knee Rule: _ ? Wells Criteria for DVT: _ ? [place] Criteria for PE: _ Discussed with: _ Treatment and Disposition ED Course: _Patient presents to ED c/o acute on chronic low back pain x 2 weeks. She reports recently having a nerve stimulator removed and is scheduled to see her surgeon in 4 days to have a new one placed. Patient is currently here visiting family for a few weeks and believes the car ride here exacerbated her pain. She denies injury, bruising, swelling, abdominal pain, dysuria, hematuria, incontinence, weakness, numbness and fever. Symptoms are aggravated by movement/pressure and alleviated by rest. Patient has had similar symptoms in the past, she takes Oxycodone at home for her pain. Low back is diffusely tender to palpation, healed surgical incision w/dissolvable sutures present, no signs of cellulitis, no drainage. Vitals are stable, patient is neurovascularly intact. She is treated w/IM pain medication here and states she will follow up with her surgeon as scheduled. Upon attempt to discharge and give follow up instructions it was found that patient had left the ED after her treatment. Shared decision making: _ Code status: _ Assessment/Plan 1. Chronic low back pain Orders: Discharge Patient Refresh vitals and s (more content not included)... [facility] C reactive proteinon 024 CRP [Mass/Vol] 0.43 mg/dL Normal <1.00 [facility] Comment on above: Performed By: #### 2 064-4 #### JOLENE Cantu ([id number]) [facility] ([facility]) [address] [place] [address]697 CBC panel Auto (Bld)on 10-31 Erythrocyte distribution width (RBC) [Ratio] 13.0 % Normal 11.5-14.5 [facility] Comment on above: Performed By: #### 2 4-4 #### JOLENE Cantu ([id number]) [facility] ([facility]) [address] [place] [address] 34017 Hematocrit (Bld) [Volume fraction] 39.1 % Normal 36.0-46.0 [facility] Comment on above: Performed By: #### 2 4-4 #### JOLENE Cantu ([id number]) [facility] ([facility]) [address] [place] [address] 53909 Hemoglobin (Bld) [Mass/Vol] 12.8 g/dL Normal 12.0-16.0 [facility] Comment on above: Performed By: #### 2 064-4 #### JOLENE Cantu ([id number]) [facility] ([facility]) [address] [place] [address] 50824 MCH (RBC) [Entitic mass] 31.4 pg Normal 26.0-34.0 [facility] Comment on above: Performed By: #### 2 064-4 #### JOLENE Cantu ([id number]) [facility] ([facility]) [address] [place] [address] 35268 MCHC (RBC) [Mass/Vol] 32.7 g/dL Normal 32.0-36.0 [facility] Comment on above: Performed By: #### 2 064-4 #### JOLENE Cantu ([id number]) [facility] ([facility]) [address] [place] [address] 22462 MCV (RBC) [Entitic vol] 96 fL Normal 80-100 [facility] Comment on above: Performed By: #### 2 064-4 #### JOLENE Cantu ([id number]) [facility] ([facility]) [address] [place] [address] 27667 Nucleated RBC/100 WBC (Bld) [Ratio] 0.0 /100 WBCs Normal 0.0-0.0 [facility] Comment on above: Performed By: #### 2 064-4 #### JOLENE Cantu ([id number]) [facility] ([facility]) [address] [place] [address] 59308 Platelets (Bld) [#/Vol] 304 x10*3/uL Normal 150-450 [facility] Comment on above: Performed By: #### 2 064-4 #### JOLENE Cantu ([id number]) [facility] ([facility]) [address] [place] [address] 01081 RBC (Bld) [#/Vol] 4.08 x10*6/uL Normal 4.00-5.20 [facility] Comment on above: Performed By: #### 2 064-4 #### JOLENE Cantu ([id number]) [facility] ([facility]) [address] [place] [address] 55664 WBC (Bld) [#/Vol] 6.2 x10*3/uL Normal 4.4-11.3 [facility] Comment on above: Performed By: #### 2 064-4 #### JOLENE RONQUILLO L ([id number]) [facility] ([facility]) [address] [place] [address] 57207 ESR Westergren method (Bld) [Velocity]on 11-01-2023 ESR (Bld) [Velocity] 44 mm/h High 0-20 [facility] Comment on above: Performed By: #### 2 064-4 #### JOLENE Cantu ([id number]) [facility] ([facility]) [address] [place] [address] MRI LUMBAR SPINE W WO DANIELA Kris 11-01-2023 MRI LUMBAR SPINE W WO CONTRAST [...] Johnson Shin MD 11/01/23 Final result Normal [facility] Renal function 2000 panelon 11-01-2023 Albumin BCP dye [Mass/Vol] 3.7 g/dL Normal 3.4-5.0 [facility] Comment on above: Performed By: #### 2 064-4 #### JOLENE CASTROER L ([id number]) [facility] ([facility]) [address] [place] [address] 22293 Anion gap [Moles/Vol] 12 mmol/L Normal 10-20 [facility] Comment on above: Performed By: #### 2 064-4 #### JOLENE WELSHMOREGINALDO L ([id number]) [facility] ([facility]) [address] [place] [address] 24229 Calcium [Mass/Vol] 8.4 mg/dL Low 8.6-10.6 [facility] Comment on above: Performed By: #### 2 064-4 #### JOLENE WELSHMOTZER L ([id number]) [facility] ([facility]) [address] [place] [address] 97270 Chloride [Moles/Vol] 105 mmol/L Normal 98-107 [facility] Comment on above: Performed By: #### 2 064-4 #### JOLENE WELSHMOTZER L ([id number]) [facility] ([facility]) [address] [place] [address] 74705 CO2 [Moles/Vol] 25 mmol/L Normal 21-32 [facility] Comment on above: Performed By: #### 2 064-4 #### JOLENE WELSHMOTZER L ([id number]) [facility] ([facility]) [address] [place] [address] 80111 Creatinine [Mass/Vol] 0.73 mg/dL Normal 0.50-1.05 [facility] Comment on above: Performed By: #### 2 064-4 #### JOLENE WELSHMOTZER L ([id number]) [facility] ([facility]) [address] [place] [address] GFR/1.73 sq M.predicted MDRD (S/P/Bld) [Vol rate/Area] mL/min/{1.73_m2} Normal >60 [facility] Comment on above: Result Comment: Calc ulations of estimated GFR are performed using the 2020 CKD-EPI Study Refit equation without the race variable for the IDMS-Traceable creatinine methods. https://jasn.asnjournals.org/content/early//ASN.37579 45389 Performed By: #### 2 064-4 #### JOLENE Cantu ([id number]) [facility] ([facility]) [address] [place] [address] 38814 Glucose [Mass/Vol] 84 mg/dL Normal 74-99 [facility] Comment on above: Performed By: #### 2 064-4 #### JOLENE Cantu ([id number]) [facility] ([facility]) [address] [place] [address] 25166 Phosphate [Mass/Vol] 3.1 mg/dL Normal 2.5-4.9 [facility] Comment on above: Result Comment: The performance characteristics of phosphorus testing in heparinized plasma have been validated by the individual laboratory site where testing is performed. Testing on heparinized plasma is not approved by the FDA; however, such approval is not necessary. Performed By: #### 2 064-4 #### JOLENE Cantu ([id number]) [facility] ([facility]) [address] [place] [address] Potassium [Moles/Vol] 3.9 mmol/L Normal 3.5-5.3 [facility] Comment on above: Performed By: #### 2 064-4 #### JOLENE Cantu ([id number]) [facility] ([facility]) [address] [place] [address] 24334 Sodium [Moles/Vol] 138 mmol/L Normal 136-145 [facility] Comment on above: Performed By: #### 2 064-4 #### JOLENE Cantu ([id number]) [facility] ([facility]) [address] [place] [address] Urea nitrogen [Mass/Vol] 14 mg/dL Normal - [facility] Comment on above: Performed By: #### 2 064-4 #### JOLENE Cantu ([id number]) [facility] ([facility]) [address] [place], [place] [address] Bacteria identifiedon 2023 Bacteria identified Cx Nom (Bld) Test: Blood Culture Specimen Source: Peripheral Venipuncture Specimen Type: Blood culture Specimen Date: 10/31/2023511 Result Date: 11/04/20231001 Result Status: Final result Abnormal: No Resulting Lab: [facility] [address] [place] [address] CULTURE No growth at 4 days - FINAL REPORT [facility] Comment on above: Performed By: #### 5 0190-8 #### SHWETA ROCHA ([id number]) [facility] ([facility]) [address] [place] [address] Blood type and Indirect anti body screen panel (Bld)on 10-31-2023 ABO group Nom (Bld) O Normal [facility] Comment on above: Performed By: #### 5 0190-8 #### SHWETA ROCHA ([id number]) [facility] ([facility]) [address] [place], [place] [address] Blood group antibody screen Ql Negative [facility] Comment on above: Performed By: #### 5 0190-8 #### SHWETA ROCHA ([id number]) [facility] ([facility]) [address] [place] [address] D Ag Ql (Bld) Positive [facility] Comment on above: Performed By: #### 5 0190-8 #### SHWETA ROCHA ([id number]) [facility] ([facility]) [address] [place] [address] CBC W Auto Differential pane l (Bld)on 10-31-2023 Basophils (Bld) [#/Vol] 0.01 x10*3/uL Normal 0.00-0.10 [facility] Comment on above: Performed By: #### 5 0190-8 #### SHWETA ROCHA ([id number]) [facility] ([facility]) [address] [place] [address] 23741 Basophils/100 WBC (Bld) 0.2 % Normal 0.0-2.0 [facility] Comment on above: Performed By: #### 5 0190-8 #### SHWETA ROCHA ([id number]) [facility] ([facility]) [address] [place] [address] 45667 Eosinophils (Bld) [#/Vol] 0.20 x10*3/uL Normal 0.00-0.70 [facility] Comment on above: Performed By: #### 5 0-8 #### SHWETA ROCHA ([id number]) [facility] ([facility]) [address] [place] [address] 39083 Eosinophils/100 WBC (Bld) 3.3 % Normal 0.0-6.0 [facility] Comment on above: Performed By: #### 5 0-8 #### SHWETA ROCHA ([id number]) [facility] ([facility]) [address] [place] [address] 89084 Erythrocyte distribution width (RBC) [Ratio] 13.1 % Normal 11.5-14.5 [facility] Comment on above: Performed By: #### 5 0190-8 #### SHWETA ROCHA ([id number]) [facility] ([facility]) [address] [place] [address] 85861 Hematocrit (Bld) [Volume fraction] 37.2 % Normal 36.0-46.0 [facility] Comment on above: Performed By: #### 5 0190-8 #### SHWETA ROCHA ([id number]) [facility] ([facility]) [address] [place] [address] Hemoglobin (Bld) [Mass/Vol] 12.6 g/dL Normal 12.0-16.0 [facility] Comment on above: Performed By: #### 5 0190-8 #### SHWETA ROCHA ([id number]) [facility] ([facility]) [address] [place] [address] 98099 Immature granulocytes (Bld) [#/Vol] 0.01 x10*3/uL Normal 0.00-0.70 [facility] Comment on above: Performed By: #### 5 0190-8 #### SHWETA ROCHA ([id number]) [facility] ([facility]) [address] [place] [address] 36503 Immature granulocytes/100 WBC (Bld) 0.2 % Normal 0.0-0.9 [facility] Comment on above: Result Comment: Aspen ture Granulocyte Count (IG) includes promyelocytes, myelocytes and metamyelocytes but does not include bands. Percent differential counts (%) should be interpreted in the context of the absolute cell counts (cells/UL). Performed By: #### 5 0190-8 #### SHWETA ROCHA ([id number]) [facility] ([facility]) [address] [place] [address] 16482 Lymphocytes (Bld) [#/Vol] 1.51 x10*3/uL Normal 1.20-4.80 [facility] Comment on above: Performed By: #### 5 0190-8 #### SHWETA ROCHA ([id number]) [facility] ([facility]) [address] [place] [address] 90254 Lymphocytes/100 WBC (Bld) 24.6 % Normal 13.0-44.0 [facility] Comment on above: Performed By: #### 5 0190-8 #### SHWETA ROCHA ([id number]) [facility] ([facility]) [address] [place] [address] 22474 MCH (RBC) [Entitic mass] 30.3 pg Normal 26.0-34.0 [facility] Comment on above: Performed By: #### 5 0190-8 #### SHWETA ROCHA ([id number]) [facility] ([facility]) [address] [place] [address] 37051 MCHC (RBC) [Mass/Vol] 33.9 g/dL Normal 32.0-36.0 [facility] Comment on above: Performed By: #### 5 0190-8 #### SHWETA ROCHA ([id number]) [facility] ([facility]) [address] [place] [address] 54323 MCV (RBC) [Entitic vol] 89 fL Normal 80-100 [facility] Comment on above: Performed By: #### 5 0190-8 #### SHWETA ROCHA ([id number]) [facility] ([facility]) [address] [place] [address] 01648 Monocytes (Bld) [#/Vol] 0.45 x10*3/uL Normal 0.10-1.00 [facility] Comment on above: Performed By: #### 5 0190-8 #### SHWETA ROCHA ([id number]) [facility] ([facility]) [address] [place] [address] 70201 Monocytes/100 WBC (Bld) 7.3 % Normal 2.0-10.0 [facility] Comment on above: Performed By: #### 5 0190-8 #### SHWETA ROCHA ([id number]) [facility] ([facility]) [address] [place] [address] 10893 Neutrophils (Bld) [#/Vol] 3.95 x10*3/uL Normal 1.20-7.70 [facility] Comment on above: Result Comment: Perc ent differential counts (%) should be interpreted in the context of the absolute cell counts (cells/uL). Performed By: #### 5 0190-8 #### SHWETA ROCHA ([id number]) [facility] ([facility]) [address] [place] [address] 97078 Neutrophils/100 WBC (Bld) 64.4 % Normal 40.0-80.0 [facility] Comment on above: Performed By: #### 5 0190-8 #### SHWETA ROCHA ([id number]) [facility] ([facility]) [address] [place] [address] 66681 Nucleated RBC/100 WBC (Bld) [Ratio] 0.0 /100 WBCs Normal 0.0-0.0 [facility] Comment on above: Performed By: #### 5 0190-8 #### SHWETA ROCHA ([id number]) [facility] ([facility]) [address] [place] [address] 60489 Platelets (Bld) [#/Vol] 304 x10*3/uL Normal 150-450 [facility] Comment on above: Performed By: #### 5 0190-8 #### SHWETA ROCHA ([id number]) [facility] ([facility]) [address] [place] [address] 72892 RBC (Bld) [#/Vol] 4.16 x10*6/uL Normal 4.00-5.20 [facility] Comment on above: Performed By: #### 5 0190-8 #### SHWETA ROCHA ([id number]) [facility] ([facility]) [address] [place] [address] 59113 WBC (Bld) [#/Vol] 6.1 x10*3/uL Normal 4.4-11.3 [facility] Comment on above: Performed By: #### 5 0190-8 #### SHWETA BARNETT RIO KEY ([id number]) [facility]) [address] [place] [address] 17466 Choriogonadotropin.beta subu niton 10-31-2023 HCG.beta subunit Qn m[IU]/mL Normal <5 [facility] Comment on above: Order Comment: Total HCG measurement is performed using the Siemens Atellica immunoassay which detects intact HCG and free beta HCG subunit. This test is not indicated for use as a tumor marker. HCG testing is performed using a different test methodology at [facility]. Direct result comparison should only be made within the same method. Performed By: #### 5 0190-8 #### SHWETA ROCHA ([id number]) [facility]) [address] [place] [address] 86235 Comprehensive metabolic 2000 panelon 10-31-2023 Albumin BCP dye [Mass/Vol] 3.6 g/dL Normal 3.4-5.0 [facility] Comment on above: Performed By: #### 5 0190-8 #### SHWETA ROCHA ([id number]) [facility]) [address] [place] [address] 79851 ALP [Catalytic activity/Vol] 75 U/L Normal 33-110 [facility] Comment on above: Performed By: #### 5 0190-8 #### SHWETA ROCHA ([id number]) [facility]) [address] [place] [address] 22986 ALT With P-5'-P [Catalytic activity/Vol] 28 U/L Normal 7-45 [facility] Comment on above: Result Comment: Katia ents treated with Sulfasalazine may generate falsely decreased results for ALT. Performed By: #### 5 0190-8 #### SHWETA ROCHA ([id number]) [facility] ([facility]) [address] [place] [address] 54835 Anion gap [Moles/Vol] 13 mmol/L Normal 10-20 [facility] Comment on above: Performed By: #### 5 0190-8 #### SHWETA ROCHA ([id number]) [facility]) [address] [place] [address] 17397 AST With P-5'-P [Catalytic activity/Vol] 34 U/L Normal 9-39 [facility] Comment on above: Performed By: #### 5 0190-8 #### SHWETA ROCHA ([id number]) [facility] ([facility]) [address] [place] [address] 35530 Bilirubin [Mass/Vol] 0.5 mg/dL Normal 0.0-1.2 [facility] Comment on above: Performed By: #### 5 0190-8 #### SHWETA ROCHA ([id number]) [facility] ([facility]) [address] [place] [address] 84746 Calcium [Mass/Vol] 8.2 mg/dL Low 8.6-10.6 [facility] Comment on above: Performed By: #### 5 0190-8 #### SHWETA ROCHA ([id number]) [facility] ([facility]) [address] [place] [address] 36494 Chloride [Moles/Vol] 106 mmol/L Normal 98-107 [facility] Comment on above: Performed By: #### 5 0190-8 #### SHWETA ROCHA ([id number]) [facility] ([facility]) [address] [place] [address] 08918 CO2 [Moles/Vol] 24 mmol/L Normal 21-32 [facility] Comment on above: Performed By: #### 5 0190-8 #### SHWETA ROCHA ([id number]) [facility] ([facility]) [address] [place] [address] 63778 Creatinine [Mass/Vol] 0.74 mg/dL Normal 0.50-1.05 [facility] Comment on above: Performed By: #### 5 0190-8 #### SHWETA ROCHA ([id number]) [facility] ([facility]) [address] [place] [address] 35661 GFR/1.73 sq M.predicted MDRD (S/P/Bld) [Vol rate/Area] mL/min/{1.73_m2} Normal >60 [facility] Comment on above: Result Comment: Calc ulations of estimated GFR are performed using the 2020 CKD-EPI Study Refit equation without the race variable for the IDMS-Traceable creatinine methods. https://jasn.asnjournals.org/content//ASN.63586 98368 Performed By: #### 5 0190-8 #### SHWETA ROCHA ([id number]) [facility] ([facility]) [address] [place] [address] 15921 Glucose [Mass/Vol] 90 mg/dL Normal 74-99 [facility] Comment on above: Performed By: #### 5 0190-8 #### SHWETA ROCHA ([id number]) [facility] ([facility]) [address] [place] [address] 19509 Potassium [Moles/Vol] 4.0 mmol/L Normal 3.5-5.3 [facility] Comment on above: Performed By: #### 5 0190-8 #### SHWETA ROCHA ([id number]) [facility] ([facility]) [address] [place] [address] 42009 Protein [Mass/Vol] 6.6 g/dL Normal 6.4-8.2 [facility] Comment on above: Performed By: #### 5 0190-8 #### SHWETA ROCHA ([id number]) [facility] ([facility]) [address] [place] [address] 68525 Sodium [Moles/Vol] 139 mmol/L Normal 136-145 [facility] Comment on above: Performed By: #### 5 0190-8 #### SHWETA ROCHA ([id number]) [facility] ([facility]) [address] [place] [address] 20733 Urea nitrogen [Mass/Vol] 13 mg/dL Normal 6-23 [facility] Comment on above: Performed By: #### 5 0190-8 #### SHWETA BARNETT RIO KEY ([id number]) [facility] ([facility]) [address] [place] [address] 27403 MR LUMBAR SPINE W AND WO IV CONTRASTon 10-31-2023 MR LUMBAR SPINE W AND WO IV CONTRAST Interpreted By: Amy Miller and Stephens Katherine STUDY: MR LUMBAR SPINE W AND WO IV CONTRAST; 10/31/2023 10:52 pm INDICATION: Signs/Symptoms:r/o infection. COMPARISON: MRI lumbar spine 10/31/2022 ACCESSION NUMBER(S): [id number] ORDERING CLINICIAN: ELKE ADAMS TECHNIQUE: Multiplanar multisequence [...] and I agree with Germaine Solitario DO's (resident hall director) findings as stated. This study was interpreted at [place], [place]. MACRO: None Signed by: Amy Miller 11/01/2023 12:21 AM Dictation workstation: [id number] Normal [facility] Urinalysis complete W Reflex Culture panel (U)on 10-31-2023 Appearance (U) Turbid Normal Clear [facility] Comment on above: Performed By: #### 5 0190-8 #### BEATRIZIBRENE ROCHA ([id number]) [facility] ([facility]) [address] [place] [address] 79754 Bilirubin (U) [Mass/Vol] Negative Normal NEGATIVE [facility] Comment on above: Performed By: #### 5 0190-8 #### BEATRIZIBRENE ROCHA ([id number]) [facility] ([facility]) [address] [place] [address] 60554 Color (U) Yellow Normal Light-Yellow , Yellow, Dark-Yellow [facility] Comment on above: Performed By: #### 5 0190-8 #### BEATRIZIBRENE BARNETT RIO KEY ([id number]) [facility] ([facility]) [address] [place] [address] 91541 Epithelial cells.squamous Auto (Urine sed) [#/Area] 26-50 (1+) Normal Reference range not established. [facility] Comment on above: Performed By: #### 5 0190-8 #### BEATRIZIBRENE ROCHA ([id number]) [facility] ([facility]) [address] [place] [address] 46450 Glucose Auto test strip (U) [Mass/Vol] Normal Normal Normal [facility] Comment on above: Performed By: #### 5 0190-8 #### SHWETA ROCHA ([id number]) [facility] ([facility]) [address] [place] [address] 40579 Ketones (U) [Mass/Vol] Negative Normal NEGATIVE [facility] Comment on above: Performed By: #### 5 0190-8 #### SHWETA ROCHA ([id number]) [facility] ([facility]) [address] [place] [address] 21306 Leukocyte esterase Auto test strip Ql (U) Negative Normal NEGATIVE [facility] Comment on above: Performed By: #### 5 0190-8 #### SHWETA ROCHA ([id number]) [facility] ([facility]) [address] [place] [address] 72241 Mucus Auto (Urine sed) [#/Area] 3+ /LPF Normal Reference range not established. [facility] Comment on above: Performed By: #### 5 0190-8 #### SHWETA ROCHA ([id number]) [facility] ([facility]) [address] [place] [address] 55873 Nitrite Auto test strip Ql (U) Negative Normal NEGATIVE [facility] Comment on above: Performed By: #### 5 0190-8 #### SHWETA ROCHA ([id number]) [facility] ([facility]) [address] [place] [address] 03994 pH (U) 6.0 [pH] Normal 5.0, 5.5, 6.0, 6.5, 7.0, 7.5, 8.0 [facility] Comment on above: Performed By: #### 5 0190-8 #### SHWETA ROCHA ([id number]) [facility] ([facility]) [address] [place] [address] 86276 Protein (U) [Mass/Vol] 30 (1+) Abnormal NEGAT ALEXANDRE, 10 (TRACE), 20 (TRACE) [facility] Comment on above: Performed By: #### 5 0190-8 #### SHWETA ROCHA (77698) [facility] ([facility]) [address] [place] [address] RBC (U) [#/Vol] Negative Normal NEGATIVE [facility] Comment on above: Performed By: #### 5 0190-8 #### SHWETA ROCHA ([id number]) [facility] ([facility]) [address] [place] [address] RBC Auto (Urine sed) [#/Area] 1-2 Normal NONE, 1-2, 3-5 [facility] Comment on above: Performed By: #### 5 0190-8 #### SHWETA ROCHA ([id number]) [facility] ([facility]) [address] [place] [address] Specific gravity (U) [Rel density] 1.033 Normal 1.005-1.035 [facility] Comment on above: Performed By: #### 5 0190-8 #### SHWETA ROCHA ([id number]) [facility] ([facility]) [address] [place] [address] Urobilinogen (U) [Mass/Vol] Normal Normal Normal [facility] Comment on above: Performed By: #### 5 0190-8 #### SHWETA ROCHA ([id number]) [facility] ([facility]) [address] [place] [address] WBC Auto (Urine sed) [#/Area] 1-5 Normal 1-5, NONE [facility] Comment on above: Performed By: #### 5 0190-8 #### SHWETA ROCHA ([id number]) [facility] ([facility]) [address] [place] [address] XR ABDOMEN (KUB) (SINGLE AP VIEW)on 10-31-2023 XR ABDOMEN (KUB) (SINGLE AP VIEW) EXAMINATION: ONE SUPINE XRAY VIEW(S) OF THE ABDOMEN 10/30/2023 7:26 pm COMPARISON: CT abdomen January 30, 2014 HISTORY: ORDERING SYSTEM PROVIDED HISTORY: rule out FB in lumbar spine from spinal stimulator prior 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 COMPARISON: None ACCESSION NUMBER(S): [id number]; [id number] ORDERING CLINICIAN: GERMAINE SOLITARIO FINDINGS: AP views [...] as stated. This study was interpreted at [facility], [place], [place]. MACRO: None Signed by: Amy Miller 10/31/2023 10:52 PM Dictation workstation: [id number] Normal [facility] XR Abdomen Single viewon Cholecystectomy clip s as well as tubal ligation clips in the pelvis. No other foreign body. 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 No evidence of free air. 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 No other foreign body. [facility] XR Abdomen Single viewOrdere d By: Liyah Miranda on 10-31-2023 [facility] Work Phone: XR CHEST 1 VIEWon 10-31-2023 XR CHEST 1 VIEW Interpreted By: Amy Miller and Kamau Nyokabi STUDY: XR CHEST 1 VIEW; 10/31/2023 4:38 am INDICATION: Signs/Symptoms:infectio us work up. COMPARISON: None. ACCESSION NUMBER(S): [id number] ORDERING CLINICIAN: ELKE ADAMS FINDINGS: AP radiographs [...] as stated. This study was interpreted at [place], [place] MACRO: None Signed by: Amy Miller 10/31/2023 4:46 AM Dictation workstation: [id number] [facility] XR PELVIS 1-2 VIEWSon 2023 XR PELVIS 1-2 VIEWS Interpreted By: Amy Miller, and Lisbeth Khan STUDY: XR PELVIS 1-2 VIEWS; XR ABDOMEN 1 VIEW; ; 10/31/2023 9:47 pm INDICATION: Signs/Symptoms:evaluate for abandoned SCS leads prior to MRI. COMPARISON: None ACCESSION NUMBER(S): [id number]; [id number] ORDERING CLINICIAN: GERMAINE SOLITARIO FINDINGS: AP views [...] as stated. This study was interpreted at [place], [place]. MACRO: None Signed by: Amy Miller 10/31/2023 10:52 PM Dictation workstation: [id number] [facility] Basic Metabolic Panelon 08-0 Anion gap [Moles/Vol] 10 mmol/L 9 - 17 mmol/L [facility] Calcium [Mass/Vol] 8.7 mg/dL 8.6 - 10. 4 mg/dL [facility] Chloride [Moles/Vol] 103 mmol/L 98 - 10 7 mmol/L [facility] CO2 [Moles/Vol] 25 mmol/L 20 - 31 mmol/L [facility] Creatinine [Mass/Vol] 0.7 mg/dL 0.5 - 0.9 mg/dL [facility] Est, Marianna Chong Rate - [facility] Comment on above: These results are not [...] [Mass/Vol] 96 mg/dL 70 - 99 mg/dL [facility] Potassium [Moles/Vol] 4.1 mmol/L 3.7 - 5.3 mmol/L [facility] Sodium [Moles/Vol] 138 mmol/L 135 - 144 mmol/L [facility] Urea nitrogen [Mass/Vol] 13 mg/dL 6 - 20 mg/dL [facility] Basic Metabolic Profon 10-29 Anion gap [Moles/Vol] 10 mmol/L Normal 9-17 [facility] Comment on above: Performed By: #### B MP, CDP, CRP #### [facility] [address] [facility] [place], [place] [id number] Agriculture Mechanic: Keke Romero DO #### SED #### [address] [place], [place] [id number] Agriculture Mechanic: Jose Enrique Oneal MD Calcium [Mass/Vol] 8.7 mg/dL Normal 8.6-10.4 [facility] Comment on above: Performed By: #### B MP, CDP, CRP #### [facility] [address] [place] [address] Agriculture Mechanic: Keke Romero DO #### SED #### [address] [address] Agriculture Mechanic: Jose Enrique Oneal MD Chloride [Moles/Vol] 103 mmol/L Normal 98-107 [facility] Comment on above: Performed By: #### B MP, CDP, CRP #### [facility] [address] [place] [address] Agriculture Mechanic: Keke Romero DO #### SED #### [address] [address] Agriculture Mechanic: Jose Enrique Oneal MD CO2 [Moles/Vol] 25 mmol/L Normal 20-31 [facility] Comment on above: Performed By: #### B MP, CDP, CRP #### [facility] [address] [place] [address] Agriculture Mechanic: Keke Romero DO #### SED #### [address] [address] Agriculture Mechanic: Jose Enrique Oneal MD Creatinine [Mass/Vol] 0.7 mg/dL Normal 0.5-0.9 [facility] Comment on above: Performed By: #### B MP, CDP, CRP #### [facility] [address] [place] [address] Agriculture Mechanic: Keke Romero DO #### SED #### [address] [id number] Agriculture Mechanic: Jose Enrique Oneal MD GFR/1.73 sq M.predicted among non-blacks MDRD (S/P/Bld) [Vol rate/Area] mL/min/{1.73_m2} Normal >60 [facility] Comment on above: Result Comment: These results [...] By: #### B MP, CDP, CRP #### [facility] [address] [place] [address] Agriculture Mechanic: Keke Romero DO #### SED #### [address] [address] Agriculture Mechanic: Jose Enrique Oneal MD Glucose [Mass/Vol] 96 mg/dL Normal 70-99 [facility] Comment on above: Performed By: #### B MP, CDP, CRP #### [facility] [address] [place] [address] Agriculture Mechanic: Keke Romero DO #### SED #### [address] [address] Agriculture Mechanic: Jose Enrique Oneal MD Potassium [Moles/Vol] 4.1 mmol/L Normal 3.7-5.3 [facility] Comment on above: Performed By: #### B MP, CDP, CRP #### [facility] [place] [address] Agriculture Mechanic: Keke Romero DO #### SED #### [address] [address] Agriculture Mechanic: Jose Enrique Oneal MD Sodium [Moles/Vol] 138 mmol/L Normal 135-144 [facility] Comment on above: Performed By: #### B MP, CDP, CRP #### [facility] [address] [place] [address] Agriculture Mechanic: Keke Romero DO #### SED #### [facility] [address] [place] [address] Agriculture Mechanic: Jose Enrique Oneal MD Urea nitrogen [Mass/Vol] 13 mg/dL Normal 6-20 [facility] Comment on above: Performed By: #### B MP, CDP, CRP #### [facility] [address] [place] [address] Agriculture Mechanic: Keke Romero DO #### SED #### [facility] [place] [address] Agriculture Mechanic: Jose Enrique Oneal MD C-Reactive Proteinon 024 CRP High sensitivity method [Mass/Vol] 3.6 mg/L 0.0 - 5.0 mg/L [facility] CRP [Mass/Vol] 3.6 mg/L Normal 0.0-5.0 [facility] Comment on above: Performed By: #### B MP, CDP, CRP #### [facility] [address] [place] [address] Agriculture Mechanic: Keke Romero DO #### SED #### [address] [address] Agriculture Mechanic: Jose Enrique Oneal MD CBC with Auto Differentialon 10-30-2023 Basophils (Bld) [#/Vol] 0.00 10*3/uL [facility] Basophils/100 WBC (Bld) 0 % 0 - 2 % [facility] Eosinophils (Bld) [#/Vol] 0.10 10*3/uL [facility] Eosinophils/100 WBC (Bld) 2 % 0 - 4 % [facility] Erythrocyte distribution width (RBC) [Ratio] 14.2 % 11.5 - 14.9 % [facility] Hematocrit (Bld) [Volume fraction] 42.0 % 36 - 46 % [facility] Hemoglobin (Bld) [Mass/Vol] 13.8 g/dL 12.0 - 16.0 g/dL [facility] Lymphocytes/100 WBC (Bld) 25 % 24 - 44 % [facility] Lymphocytes/100 WBC (Bld) 2.50 % [facility] MCH (RBC) [Entitic mass] 31.3 pg 26 - 34 pg [facility] MCHC (RBC) [Mass/Vol] 33.0 g/dL 31 - 37 g/dL [facility] MCV (RBC) [Entitic vol] 95.0 fL 80 - 100 fL [facility] Monocytes/100 WBC (Bld) 7 % 1 - 7 % [facility] Monocytes/100 WBC (Bld) 0.70 % [facility] Neutrophils/100 WBC (Bld) 66 % 36 - 66 % [facility] Platelet mean volume (Bld) [Entitic vol] 8.1 fL 6.0 - 12.0 fL [facility] Platelets (Bld) [#/Vol] 347 10*3/uL [facility] RBC (Bld) [#/Vol] 4.42 10*6/uL 4.0 - 5.2 m/uL [facility] Segmented neutrophils/100 WBC (Bld) 6.60 % [facility] WBC other (Bld) [#/Vol] 9.9 [facility] CBC with Diffon 10-30-2023 Abs. Basophil 0.00 k/uL Normal 0.0-0.2 [facility] Comment on above: Performed By: #### B MP, CDP, CRP #### [facility] [address] [place], [place] [id number] Agriculture Mechanic: Keke Romero DO #### SED #### [address] [place], [place] [id number] Agriculture Mechanic: Jose Enrique Oneal MD Abs.Neutrophil (Seg) 6.60 k/uL Normal 1.3-9.1 [facility] Comment on above: Performed By: #### B MP, CDP, CRP #### [facility] [address] [place] [address] Agriculture Mechanic: Keke Romero DO #### SED #### [address] [address] Agriculture Mechanic: Jose Enrique Oneal MD Basophils/100 WBC (Bld) 0 % Normal 0-2 [facility] Comment on above: Performed By: #### B MP, CDP, CRP #### [facility] [address] [place] [address] Agriculture Mechanic: Keke Romero DO #### SED #### [address] [address] Agriculture Mechanic: Jose Enrique Oneal MD Eosinophils (Bld) [#/Vol] 0.10 10*3/uL Normal 0.0-0.4 [facility] Comment on above: Performed By: #### B MP, CDP, CRP #### [facility] [place] [address] Agriculture Mechanic: Keke Romero DO #### SED #### [address] [address] Agriculture Mechanic: Jose Enrique Oneal MD Eosinophils/100 WBC (Bld) 2 % Normal 0-4 [facility] Comment on above: Performed By: #### B MP, CDP, CRP #### [facility] [place] [address] Agriculture Mechanic: Keke Romero DO #### SED #### [address] [address] Agriculture Mechanic: Jose Enrique Oneal MD Erythrocyte distribution width (RBC) [Ratio] 14.2 % Normal 11.5-14.9 [facility] Comment on above: Performed By: #### B MP, CDP, CRP #### [facility] [address] [place] [address] Agriculture Mechanic: Keke Romero DO #### SED #### [address] [address] Agriculture Mechanic: Jose Enrique Oneal MD Hematocrit (Bld) [Volume fraction] 42.0 % Normal 36-46 [facility] Comment on above: Performed By: #### B MP, CDP, CRP #### [facility] [address] [place] [address] Agriculture Mechanic: Keke Romero DO #### SED #### [address] [address] Agriculture Mechanic: Jose Enrique Oneal MD Hemoglobin (Bld) [Mass/Vol] 13.8 g/dL Normal 12.0-16.0 [facility] Comment on above: Performed By: #### B MP, CDP, CRP #### [facility] [place] [address] Agriculture Mechanic: Keke Romero DO #### SED #### [address] [address] Agriculture Mechanic: Jose Enrique Oneal MD Lymphocytes (Bld) [#/Vol] 2.50 10*3/uL Normal 1.0-4.8 [facility] Comment on above: Performed By: #### B MP, CDP, CRP #### [facility] [address] [place] [address] Agriculture Mechanic: Keke Romero DO #### SED #### [address] [address] Agriculture Mechanic: Jose Enrique Oneal MD Lymphocytes/100 WBC (Bld) 25 % Normal 24-44 [facility] Comment on above: Performed By: #### B MP, CDP, CRP #### [facility] [address] [place] [address] Agriculture Mechanic: Keke Romero DO #### SED #### [address] [address] Agriculture Mechanic: Jose Enrique Oneal MD MCH (RBC) [Entitic mass] 31.3 pg Normal 26-34 [facility] Comment on above: Performed By: #### B MP, CDP, CRP #### [facility] [address] [place] [address] Agriculture Mechanic: Keke Romero DO #### SED #### [address] [address] Agriculture Mechanic: Jose Enrique Oneal MD MCHC (RBC) [Mass/Vol] 33.0 g/dL Normal 31-37 [facility] Comment on above: Performed By: #### B MP, CDP, CRP #### [facility] [address] [place] [address] Agriculture Mechanic: Keke Romero DO #### SED #### [address] [address] Agriculture Mechanic: Jose Enrique Oneal MD MCV (RBC) [Entitic vol] 95.0 fL Normal 80-100 [facility] Comment on above: Performed By: #### B MP, CDP, CRP #### [facility] [address] [place] [address] Agriculture Mechanic: Keke Romero DO #### SED #### [address] [address] Agriculture Mechanic: Jose Enrique Oneal MD Monocytes (Bld) [#/Vol] 0.70 10*3/uL Normal 0.1-1.3 [facility] Comment on above: Performed By: #### B MP, CDP, CRP #### [facility] [address] [place] [address] Agriculture Mechanic: Keke Romero DO #### SED #### [address] [address] Agriculture Mechanic: Jose Enrique Oneal MD Monocytes/100 WBC (Bld) 7 % Normal 1-7 [facility] Comment on above: Performed By: #### B MP, CDP, CRP #### [facility] [address] [place] [address] Agriculture Mechanic: Keke Romero DO #### SED #### [address] [address] Agriculture Mechanic: Jose Enrique nOeal MD Neutrophil (Seg) 66 % Normal 36-66 [facility] Comment on above: Performed By: #### B MP, CDP, CRP #### [facility] [address] [place] [address] Agriculture Mechanic: Keke Romero DO #### SED #### [address] [address] Agriculture Mechanic: Jose Enrique Oneal MD Platelet mean volume (Bld) [Entitic vol] 8.1 fL Normal 6.0-12.0 [facility] Comment on above: Performed By: #### B MP, CDP, CRP #### [facility] [address] [place] [address] Agriculture Mechanic: Keke Romero DO #### SED #### [address] [address] Agriculture Mechanic: Jose Enrique Oneal MD Platelets (Bld) [#/Vol] 347 10*3/uL Normal 150-450 [facility] Comment on above: Performed By: #### B MP, CDP, CRP #### [facility] [address] [place] [address] Agriculture Mechanic: Keke Romero DO #### SED #### [address] [address] Agriculture Mechanic: Jose Enrique Oneal MD RBC (Bld) [#/Vol] 4.42 10*6/uL Normal 4.0-5.2 [facility] Comment on above: Performed By: #### B MP, CDP, CRP #### [facility] [address] [place] [address] Agriculture Mechanic: Keke Romero DO #### SED #### [address] [address] Agriculture Mechanic: Jose Enrique Oneal MD WBC (Bld) [#/Vol] 9.9 10*3/uL Normal 3.5-11.0 [facility] Comment on above: Performed By: #### B MP, CDP, CRP #### [facility] [address] [place] [address] Agriculture Mechanic: Keke Romero DO #### SED #### [address] [address] Agriculture Mechanic: Jose Enrique Oneal MD ED Clinical Summaryon 2023 ED Clinical Summary Normal [facility] ED Note-Physicianon 10-30-19 ED Note-Physician Normal [facility] Comment on above: Result Comment: Elec tronically Signed By: Annette Watkins, Balb[place] H\.br\Date and Time Signed: 10/30/23 15:29 EDT ED Patient Education Noteon 10-30-2023 ED Patient Education Note Normal [facility] ED Patient Summaryon ED Patient Summary Normal [facility] No Panel Informationon 10-29 [facility] [employer] [facility] Sedimentation Rateon ESR Photometric method (Bld) [Velocity] 32 High [facility] Interpretation and review of laboratory results Abnormal [facility] Sedimentation Rate 32 mm/Hr High 0-20 [facility] Comment on above: Performed By: #### B MP, CDP, CRP #### [facility] [address] [place] [address] Agriculture Mechanic: Keke Romero DO #### SED #### [facility] [address] [place] [address] Agriculture Mechanic: Jose Enrique Oneal MD XR Abdomen Single viewon Radiology Study observation (narrative) [facility] ED Clinical Summaryon 2023 ED Clinical Summary Normal [facility] ED Note-Physicianon 10-26-19 ED Note-Physician Normal [facility] Comment on above: Result Comment: Elec tronically Signed By: Chance SLATER, Pedro Pablo SAdrien\.br\Date and Time Signed: 10/26/23 03:05 EDT ED Patient Education Noteon 10-26-2023 ED Patient Education Note Normal [facility] ED Patient Summaryon 024 ED Patient Summary Normal [facility] Alanine aminotransferase [En zymatic activity/volume] in Serum or PlasmaOrdered By: Peter Veliz on 10-19-2023 ALT [Catalytic activity/Vol] 41 U/L Normal 7-52 [facility] Comment on above: Performed By: #### C DEYVI PARKINSON CBC #### [facility] [address] Albumin [Mass/volume] in Ser um or Plasma by Bromocresol green (BCG) dye binding methoOrdered By: Peter Veliz on 10-19-2023 Albumin BCG dye [Mass/Vol] 4.0 g/dL 3.5-5.7 [facility] Alkaline phosphatase [Enzyma tic activity/volume] in Serum or PlasmaOrdered By: Peter Veliz on 10-19-2023 ALP [Catalytic activity/Vol] 92 U/L Normal 34-104 [facility] Comment on above: Performed By: #### C DEYVI PARKINSON, CBC #### [address] Aspartate aminotransferase [ Enzymatic activity/volume] in Serum or PlasmaOrdered By: Peter Veliz on 10-19-2023 AST [Catalytic activity/Vol] 22 U/L Normal 13-39 [facility] Comment on above: Performed By: #### C DEYVI PARKINSON, CBC #### [address] Automated basophil %Ordered By: Peter Veliz on 10-19-2023 Basophils/100 WBC (Bld) 0.3 % Normal . [facility] Comment on above: Performed By: #### C DEYVI PARKINSON, CBC #### [address] Automated basophil countOrde red By: Peter Veliz on 10-19-2023 Basophils (Bld) [#/Vol] 0.0 10*3/uL Normal 0.0-0.2 [facility] Comment on above: Result Comment: PERF ORMED BY: [place] [address] PATHOLOGIST RING MAKING 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 JASON WILSON M.D. Performed By: #### C DEYVI PARKINSON, CBC #### [address] Automated blood monocyte cou ntOrdered By: Peter Veliz on 10-19-2023 Monocytes (Bld) [#/Vol] 0.8 10*3/uL Normal 0.0-0.8 [facility] Comment on above: Performed By: #### C DEYVI PARKINSON, CBC #### [address] Automated eosinophil %Ordere d By: Peter Veliz on 10-19-2023 Eosinophils/100 WBC (Bld) 1.9 % Normal . [facility] Comment on above: Performed By: #### C DEYVI PARKINSON, CBC #### [address] Automated eosinophil countOr dered By: Peter Veliz on 10-19-2023 Eosinophils (Bld) [#/Vol] 0.2 10*3/uL Normal 0.0-0.45 [facility] Comment on above: Performed By: #### C DEYVI PARKINSON, CBC #### [address] Automated monocyte %Ordered By: Peter Veliz on 10-19-2023 Monocytes/100 WBC (Bld) 6.8 % Normal . [facility] Comment on above: Performed By: #### C DEYVI PARKINSON, CBC #### [address] Automated neutrophil %Ordere d By: Peter Veliz on 10-19-2023 Neutrophils/100 WBC (Bld) 72.3 % Normal . [facility] Comment on above: Performed By: #### C DEYVI PARKINSON, CBC #### [address] Bacteria [Presence] in Urine by AutomatedOrdered By: Peter Veliz on 10-19-2023 Bacteria Auto Ql (U) None seen [HPF] None Seen [facility] Bacterial blood cultureOrder ed By: Peter Veliz on 10-19-2023 Bacteria identified Cx Nom (Bld) NO GROWTH 5 DAYS [facility] Bacteria identified Cx Nom (Bld) NO GROWTH 5 DAYS [facility] Bilirubin Test strip Ql (U)O rdered By: Peter Veliz on 10-19-2023 Bilirubin Ql (U) Negative Negative [facility] Bilirubin.total [Mass/volume ] in Serum or PlasmaOrdered By: Peter Veliz on 10-19-2023 Bilirubin [Mass/Vol] 0.5 mg/dL Normal 0.3-1.0 [facility] Comment on above: Performed By: #### C DEYVI PARKINSON, CBC #### [facility] [address] [place] [address] Blood Cultureon 10-19-2023 Bacteria identified Cx Nom (Bld) NO GROWTH 5 DAYS PERFORMED BY: [place] [address] PATHOLOGIST RING MAKING 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 JASON WILSON M.D. Normal [facility] Comment on above: Performed By: #### C DEYVI PARKINSON, CBC #### [facility] [address] Bacteria identified Cx Nom (Bld) NO GROWTH 5 DAYS PERFORMED BY: [place] [address] PATHOLOGIST RING MAKING 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 JASON WILSON M.D. Normal [facility] Comment on above: Performed By: #### C DEYVI PARKINSON, CBC #### [facility] [address] [place] [address] COVID CepheidOrdered By: Cedric Veliz on 10-19-2023 SARS-CoV-2 (COVID-19) Ab IA Ql Negative Negative [facility] Comment on above: This is a duplicate Cepheid Xpert Xpress CoV-2/Flu/RSV Plus RNA by RT-PCR result to be used for statistical tracking purpose only. SARS-CoV-2 (COVID-19) RNA LINDSEY+probe Ql (Unsp spec) [facility] COVID-19 / Flu A/B / RSV PCR [...] or Cepheid Disclaimer revoked sooner. PERFORMED BY: [place] [address] PATHOLOGIST RING MAKING 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 JASON WILSON M.D. Normal [facility] Comment on above: Performed By: #### C DEYVI PARKINSON, CBC #### [address] Calcium [Mass/volume] in Ser um or PlasmaOrdered By: Peter Veliz on 10-19-2023 Calcium [Mass/Vol] 8.9 mg/dL Normal 8.6-10.3 [facility] Comment on above: Performed By: #### C DEYVI PARKINSON, CBC #### [address] Carbon dioxide, total [Moles /volume] in Serum or PlasmaOrdered By: Peter Veliz on 10-19-2023 CO2 [Moles/Vol] 25.7 mmol/L Normal 21.0-31.0 [facility] Comment on above: Performed By: #### C DEYVI PARKINSON, CBC #### [address] Cepheid COVID PCR Negativeon 10-19-2023 SARS-CoV-2 (COVID-19) RNA LINDSEY+probe Ql (Unsp spec) Negative Normal Negative [facility] Comment on above: Result Comment: This is a duplicate [employer] Xpert Xpress CoV-2/Flu/RSV Plus RNA by RT-PCR result to be used for statistical tracking purpose only. PERFORMED BY: [place] [address] PATHOLOGIST RING MAKING 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 JASON WILSON M.D. Performed By: #### C DEYVI PARKINSON, CBC #### [address] Chloride [Moles/volume] in S saw or PlasmaOrdered By: Peter Veliz on 10-19-2023 Chloride [Moles/Vol] 107 mmol/L Normal 98-107 [facility] Comment on above: Performed By: #### C DEYVI PARKINSON, CBC #### [address] Color of Urine by AutoOrdere d By: Peter Veliz on 10-19-2023 Color (U) Yellow Normal Yellow [facility] Comment on above: Order Comment: Name Collection Type:: Clean-Voided Midstream Performed By: #### C DEYVI PARKINSON, CBC #### [address] Complete Blood Count Auto Di ffon 10-19-2023 Mean Corpuscular HGB Conc 34.0 g/dL Normal 32.0-35.0 [facility] Comment on above: Performed By: #### C DEYVI PARKINSON, CBC #### [address] Monocytes/100 WBC (Bld) 19.02 % Normal 0.00-20.00 [facility] Comment on above: Performed By: #### C DEYVI PARKINSON, CBC #### [address] NRBC% 0.2 /100{WBC} Normal 0-0.5 [facility] Comment on above: Performed By: #### C DEYVI PARKINSON, CBC #### [address] Comprehensive Metabolic Pane cassie 10-19-2023 Albumin [Mass/Vol] 4.0 g/dL Normal 3.5-5.7 [facility] Comment on above: Performed By: #### C DEYVI PARKINSON, CBC #### [address] Creatinine Clr Calc Pharmacy 115.17 Normal [facility] Comment on above: Result Comment: PERF ORMED BY: [place] [address] PATHOLOGIST RING MAKING 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 JASNO WILSON M.D. Performed By: #### C DEYVI PARKINSON, CBC #### [address] GFR/1.73 sq M.predicted MDRD (S/P/Bld) [Vol rate/Area] mL/min/{1.73_m2} Normal [facility] Comment on above: Performed By: #### C DEYVI PARKINSON, CBC #### [address] Creatinine [Mass/volume] in Serum or PlasmaOrdered By: Peter Veliz on 10-19-2023 Creatinine [Mass/Vol] 0.74 mg/dL Normal 0.60-1.20 [facility] Comment on above: Performed By: #### C DEYVI PARKINSON, CBC #### [place] [address] [place] Dipstick and Microscopicon 0 10-19-2023 Bacteria,Urine None Seen Normal None Seen [facility] Comment on above: Order Comment: Name Collection Type:: Clean-Voided Midstream Performed By: #### C DEYVI PARKINSON, CBC #### [place] [address] [place] Bilirubin,Urine Negative Normal Negative [facility] Comment on above: Order Comment: Name Collection Type:: Clean-Voided Midstream Performed By: #### C DEYVI PARKINSON, CBC #### [place] [address] [place] Glucose Ql (U) Normal Normal Normal [facility] Comment on above: Order Comment: Name Collection Type:: Clean-Voided Midstream Performed By: #### C MP, CUBLD, CBC #### [facility] [address] [place] [address] [place] Granular Casts, Urine 1-2 High None Seen [facility] Comment on above: Order Comment: Name Collection Type:: Clean-Voided Midstream Performed By: #### C MP, CUBLD, CBC #### [facility] [address] [place] [address] [place] Hyaline Casts,Urine 0-8 Normal 0-8 [facility] Comment on above: Order Comment: Name Collection Type:: Clean-Voided Midstream Performed By: #### C MP, CUBLD, CBC #### [place] [address] [place] Mucus,Urine Rare Normal [facility] Comment on above: Order Comment: Name Collection Type:: Clean-Voided Midstream Result Comment: PERF ORMED BY: [place] [address] PATHOLOGIST RING MAKING 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 JASON WILSON M.D. Performed By: #### C MP, CUBLD, CBC #### [place] [address] [place] Nitrite,Urine Negative Normal Negative [facility] Comment on above: Order Comment: Name Collection Type:: Clean-Voided Midstream Performed By: #### C MP, CUBLD, CBC #### [place] [address] [place] Occult Blood,Urine Negative Normal Negative [facility] Comment on above: Order Comment: Name Collection Type:: Clean-Voided Midstream Result Comment: PERF ORMED BY: [place] [address] PATHOLOGIST RING MAKING 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 JASON WILSON M.D. Performed By: #### C MP, CUBLD, CBC #### [facility] [address] [place] [address] [place] RBC,Urine 1-2 Normal 0-4 [facility] Comment on above: Order Comment: Name Collection Type:: Clean-Voided Midstream Performed By: #### C MP, CUBLD, CBC #### [address] Specificy [place],Urine 1.027 Normal 1.001-1.030 [facility] Comment on above: Order Comment: Name Collection Type:: Clean-Voided Midstream Performed By: #### C MP, CUBLD, CBC #### [address] Squamous Epithelial Cell,Urine 3-4 High 0-2 [facility] Comment on above: Order Comment: Name Collection Type:: Clean-Voided Midstream Performed By: #### C MP, CUBLD, CBC #### [address] Urobilinogen,Urine Normal Normal Normal [facility] Comment on above: Order Comment: Name Collection Type:: Clean-Voided Midstream Performed By: #### C MP, CUBLD, CBC #### [address] WBC,Urine 1-2 Normal 0-4 [facility] Comment on above: Order Comment: Name Collection Type:: Clean-Voided Midstream Performed By: #### C MP, CUBLD, CBC #### [address] Epithelial cells.squamous [# /area] in Urine sediment by Automated countOrdered By: Peter Veliz on 10-19-2023 Epithelial cells.squamous Auto (Urine sed) [#/Area] 3-4 [HPF] High 0-2 [facility] Erythrocyte distribution wid th [Ratio] by Automated countOrdered By: Peter Veliz on 10-19-2023 Erythrocyte distribution width (RBC) [Ratio] 13.9 % Normal 11.9-15.3 [facility] Comment on above: Performed By: #### C MP, CUBLD, CBC #### [address] Erythrocytes [#/area] in Uri ne sediment by Automated countOrdered By: Peter Veliz on 10-19-2023 RBC Auto (Urine sed) [#/Area] 1-2 [HPF] 0-4 [facility] Erythrocytes [#/volume] in B lood by Automated countOrdered By: Peter Veliz on 10-19-2023 RBC (Bld) [#/Vol] 4.47 10*6/uL Normal 3.60-5.00 [facility] Comment on above: Performed By: #### C DEYVI PARKINSON, CBC #### [facility] [address] Glucose [Mass/volume] in Ser um or PlasmaOrdered By: Peter Veliz on 10-19-2023 Glucose [Mass/Vol] 87 mg/dL Normal 70-100 [facility] Comment on above: ADA recommended refe rence rangeRandom Glucose Reference Range is dependent on time and content of last meal. Glucose of more than 200 mg/dL in a nonstressed, ambulatory subject supports the diagnosis of Diabetes Mellitus. Result Comment: Kersey om Glucose Reference Range is dependent on time and content of last meal. Glucose of more than 200 mg/dL in a nonstressed, ambulatory subject supports the diagnosis of Diabetes Mellitus. ADA recommended reference range Performed By: #### C DEYVI PARKINSON, CBC #### [facility] [address] [place] [id number] [place] Glucose [Mass/volume] in Uri ne by Test stripOrdered By: Peter Veliz on 10-19-2023 Glucose Test strip (U) [Mass/Vol] Normal mg/dL Normal [facility] Granular casts [#/area] in U rine by Computer assisted methodOrdered By: Peter Veliz on 10-19-2023 Granular casts Computer assisted (U) [#/Area] 1-2 [LPF] High None Seen [facility] Hematocrit [Volume Fraction] of Blood by Automated countOrdered By: Peter Veliz on 10-19-2023 Hematocrit (Bld) [Volume fraction] 41.9 % Normal 34.0-46.4 [facility] Comment on above: Performed By: #### C DEYVI PARKINSON, CBC #### [facility] [address] [place] [id number] [facility] Hemoglobin Test strip Ql (U) Ordered By: Peter Veliz on 10-19-2023 Hemoglobin Ql (U) Negative Negative [facility] Hemoglobin [Mass/volume] in BloodOrdered By: Peter Veliz on 10-19-2023 Hemoglobin (Bld) [Mass/Vol] 14.2 g/dL Normal 11.8-15.4 [facility] Comment on above: Performed By: #### C DEYVI PARKINSON, CBC #### [facility] [address] [place] [address] [place] Hyaline casts [#/area] in Ur ine sediment by Automated countOrdered By: Peter Veliz on 10-19-2023 Hyaline casts Auto (Urine sed) [#/Area] 0-8 [LPF] 0-8 [facility] Ketones [Presence] in Urine by Test stripOrdered By: Peter Veliz on 10-19-2023 Ketones Ql (U) Negative Normal Negative [facility] Comment on above: Order Comment: Name Collection Type:: Clean-Voided Midstream Performed By: #### C DEYVI PARKINSON, CBC #### [facility] [address] [place] [address] [place] Lactate [Moles/volume] in Se rum or PlasmaOrdered By: Peter Veliz on 10-19-2023 Lactate [Moles/Vol] 1.0 mmol/L Normal 0.5-2.2 [facility] Comment on above: Result Comment: PERF ORMED BY: [place] [address] PATHOLOGIST RING MAKING 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 JASON WILSON M.D. Performed By: #### C DEYVI PARKINSON, CBC #### [place] [address] [place] Leukocyte esterase [Presence ] in Urine by Test stripOrdered By: Peter Veliz on 10-19-2023 Leukocyte esterase Test strip Ql (U) Negative Normal Negative [facility] Comment on above: Order Comment: Name Collection Type:: Clean-Voided Midstream Performed By: #### C DEYVI PARKINSON, CBC #### [facility] [address] [place] [id number] [place] Leukocytes [#/area] in Urine sediment by Automated countOrdered By: Peter Veliz on 10-19-2023 WBC Auto (Urine sed) [#/Area] 1-2 [HPF] 0-4 [facility] Leukocytes [#/volume] correc lisa for nucleated erythrocytes in Blood by Automated counOrdered By: Peter Veliz on 10-19-2023 WBC corrected for nucl RBC Auto (Bld) [#/Vol] 11.5 10*3/uL 3.8-11.6 [facility] Leukocytes [#/volume] in Blo od by Automated countOrdered By: Peter Veliz on 10-19-2023 WBC (Bld) [#/Vol] 11.5 10*3/uL Normal 3.8-11.6 [facility] Comment on above: Performed By: #### C DEYVI PARKINSON, CBC #### [place] [address] [place] Lymphocytes [#/volume] in Bl ood by Automated countOrdered By: Peter Veliz on 10-19-2023 Lymphocytes (Bld) [#/Vol] 2.2 10*3/uL Normal 1.00-4.8 [facility] Comment on above: Performed By: #### C DEYVI PARKINSON, CBC #### [facility] [address] [place] [address] [place] Lymphocytes/100 leukocytes i n Blood by Automated countOrdered By: Peter Veliz on 10-19-2023 Lymphocytes/100 WBC (Bld) 18.7 % Normal . [facility] Comment on above: Performed By: #### C DEYVI PARKINSON, CBC #### [place] [address] [place] MCH [Entitic mass] by Automa lisa countOrdered By: Peter Veliz on 10-19-2023 MCH (RBC) [Entitic mass] 31.9 pg Normal 24.7-34.3 [facility] Comment on above: Performed By: #### C DEYVI PARKINSON, CBC #### [address] MCHC Auto (RBC) [Mass/Vol]Or dered By: Peter Veliz on 10-19-2023 MCHC (RBC) [Mass/Vol] 34.0 g/dL 32.0-35.0 [facility] MCV [Entitic volume] by Auto mated countOrdered By: Peter Veliz on 10-19-2023 MCV (RBC) [Entitic vol] 93.6 fL Normal 80-100 [facility] Comment on above: Performed By: #### C DEYVI PARKINSON, CBC #### [facility] [address] Monocyte distribution width [Entitic volume] in Blood by AutomatedOrdered By: Peter Veliz on 10-19-2023 Monocyte distribution width Auto (Bld) [Entitic vol] 19.02 % 0.00-20.00 [facility] Mucus [Presence] in Urine by AutomatedOrdered By: Peter Veliz on 10-19-2023 Mucus Auto Ql (U) Rare [LPF] [facility] Neutrophils [#/volume] in Bl ood by Automated countOrdered By: Peter Veliz on 10-19-2023 Neutrophils (Bld) [#/Vol] 8.3 10*3/uL High 1.8-7.7 [facility] Comment on above: Performed By: #### C DEYVI PARKINSON, CBC #### [facility] [address] Nitrite Test strip Ql (U)Ord ered By: Peter Veliz on 10-19-2023 Nitrite Ql (U) Negative Negative [facility] No Panel InformationOrdered By: Peter Veliz on 10-19-2023 Blood Gas Critical Value See comment [facility] Comment on above: Critical Value matthew garzon on: 10/19/2023 at 12:39 Blood Gas Sample Site Venous [facility] FiO2 21 % [facility] Venous Blood Base Excess -0.8 mmol/L -3.0-3.0 [facility] Venous Blood Oxygen Content 6.1 mmol/L Low 6.6-9.7 [facility] Venous Blood Oxygen Saturation 70.1 % Low 73.0-76.0 [facility] Venous Blood Partial Pressure CO2 38.6 mm[Hg] 38.0-50.0 [facility] Venous Blood Partial Pressure O2 34.7 mm[Hg] Low 35.0-45.0 [facility] Venous Blood pH 7.41 7.32-7.43 [facility] Estimated GFR (CKD-EPI) > 60.0 mL/Min [facility] Creatinine Clearance (Chem 115.17 [facility] Nucleated erythrocytes [Pres ence] in Blood by Automated countOrdered By: Peter Veliz on 10-19-2023 Nucleated RBC Auto Ql (Bld) 0.2 /100{WBC} 0-0.5 [facility] Platelet mean volume [Entiti c volume] in Blood by Automated countOrdered By: Peter Veliz on 10-19-2023 Platelet mean volume (Bld) [Entitic vol] 8.1 fL Normal 6.3-10.7 [facility] Comment on above: Performed By: #### C DEYVI PARKINSON, CBC #### [facility] [address] Platelets [#/volume] in Bloo d by Automated countOrdered By: Peter Veliz on 10-19-2023 Platelets (Bld) [#/Vol] 317 10*3/uL Normal 150-450 [facility] Comment on above: Performed By: #### C DEYVI PARKINSON, CBC #### [address] Potassium [Moles/volume] in Serum or PlasmaOrdered By: Peter Veliz on 10-19-2023 Potassium [Moles/Vol] 4.2 mmol/L Normal 3.5-5.1 [facility] Comment on above: Hemolysis is present at a level that could interfere with the result.Contact lab if redraw is required Result Comment: Hemo lysis is present at a level that could interfere with the result. Contact lab if redraw is required Performed By: #### C DEYVI PARKINSON, CBC #### [place] [address] [place] Protein [Mass/volume] in Ser um or PlasmaOrdered By: Peter Veliz on 10-19-2023 Protein [Mass/Vol] 7.4 g/dL Normal 6.4-8.9 [facility] Comment on above: Performed By: #### C DEYVI PARKINSON, CBC #### [address] Protein [Mass/volume] in Uri ne by Test stripOrdered By: Peter Veliz on 10-19-2023 Protein (U) [Mass/Vol] 20 mg/dL High Negative [facility] Comment on above: Order Comment: Name Collection Type:: Clean-Voided Midstream Performed By: #### C DEVYI PARKINSON, CBC #### [address] Serum globulin measurement b y calculation (mass/volume)Ordered By: Peter Veliz on 10-19-2023 Globulin (S) [Mass/Vol] 3.4 g/dL [facility] Comment on above: Performed By: #### C DEYVI PARKINSON, CBC #### [address] Serum or plasma albumin/glob ulin mass ratioOrdered By: Peter Veliz on 10-19-2023 Albumin/Globulin [Mass ratio] 1.2 {ratio} [facility] Comment on above: Performed By: #### C DEYVI PARKINSON, CBC #### [address] Serum or plasma anion gap de terminationOrdered By: Peter Veliz on 10-19-2023 Anion gap [Moles/Vol] 10.5 mmol/L Normal 6.0-15.0 [facility] Comment on above: Performed By: #### C DEYVI PARKINSON, CBC #### [address] Sodium [Moles/volume] in Ser um or PlasmaOrdered By: Peter Veliz on 10-19-2023 Sodium [Moles/Vol] 139 mmol/L Normal 136-145 [facility] Comment on above: Performed By: #### C DEYVI PARKINSON, CBC #### [address] Specific gravity Test strip (U) [Rel density]Ordered By: Peter Veliz on 10-19-2023 Specific gravity (U) [Rel density] 1.027 1.001-1.030 [facility] Urea nitrogen [Mass/volume] in Serum or PlasmaOrdered By: Peter Veliz on 10-19-2023 Urea nitrogen [Mass/Vol] 17 mg/dL Normal 7-25 [facility] Comment on above: Performed By: #### C DEYVI PARKINSON, CBC #### [facility] [address] Urine appearanceOrdered By: Peter Veliz on 10-19-2023 Appearance (U) Clear Normal Clear [facility] Comment on above: Order Comment: Name Collection Type:: Clean-Voided Midstream Performed By: #### C DEYVI PARKINSON, CBC #### [facility] [address] Urobilinogen Test strip (U) [Mass/Vol]Ordered By: Peter Veliz on 10-19-2023 Urobilinogen (U) [Mass/Vol] Normal mg/dL Normal [facility] Venous Blood GasOrdered By: Peter Veliz on 10-19-2023 CO2 [Moles/Vol] 24.8 mmol/L Normal 24.0-29.0 [facility] Comment on above: Performed By: #### V BG #### Point of Care testing , HCO3 (Bld) [Moles/Vol] 23.6 mmol/L Normal 23.0-29.0 [facility] Comment on above: Performed By: #### V BG #### Point of Care testing , Venous Blood Gason Respiratory Critical Normal [facility] Comment on above: Result Comment: Crit ical Value called on: 10/19/2023 at 12:39 PERFORMED BY: [facility] [address] [place] [address] PATHOLOGIST RING MAKING 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 JASON WILSON M.D. Performed By: #### V BG #### Point of Care testing , VBG Base Excess -0.8 mmol/L Normal -3.0-3.0 [facility] Comment on above: Performed By: #### V BG #### Point of Care testing , VBG Draw Site Venous Normal [facility] Comment on above: Performed By: #### V BG #### Point of Care testing , VBG Frac Inspired O2 21 % Normal [facility] Comment on above: Performed By: #### V BG #### Point of Care testing , VBG O2 Content 6.1 mmol/L Low 6.6-9.7 [facility] Comment on above: Performed By: #### V BG #### Point of Care testing , VBG Oxygen Saturation 70.1 % Low 73.0-76.0 [facility] Comment on above: Performed By: #### V BG #### Point of Care testing , VBG PCO2 38.6 mm[Hg] Normal 38.0-50.0 [facility] Comment on above: Performed By: #### V BG #### Point of Care testing , VBG PH Venous PH 7.41 Normal 7.32-7.43 [facility] Comment on above: Performed By: #### V BG #### Point of Care testing , VBG PO2 34.7 mm[Hg] Low 35.0-45.0 [facility] Comment on above: Performed By: #### V BG #### Point of Care testing , XR chest 1V portableon 10-18 XR chest 1V portable [facility] [place] [address] XRay Report Signed Patient: Jerad Tracy MR#: [id number] 49 : 1975 Acct:[id number] Age/Sex: 48 / F ADM Date: 10/19/23 Loc: ER Room: Type: [facility] ER Attending Dr: Copies to: Peter Veliz [...] Velazquez Jr., D.OAdrien10/19/2023 12:21 PM Dictation Location: [place] [address] Transcribed By: [facility] 10/19/23 1221 Dictated By: Johan Velazquez Jr, DO 10/19/23 1219 Signed By: 10/19/23 1221 Normal [facility] pH of Urine by Test stripOrd ered By: Peter Veliz on 10-19-2023 pH (U) 6.5 [pH] Normal 5.0-9.0 [facility] Comment on above: Order Comment: Name Collection Type:: Clean-Voided Midstream Performed By: #### C MP, CUBLD, CBC #### [facility] [address] CBC panel Auto (Bld)on 10-15 Erythrocyte distribution width (RBC) [Ratio] 13.3 % Normal 11.5-14.5 [facility] Comment on above: Performed By: #### 1 968-7 #### SHWETA ROCHA ([id number]) [facility] ([facility]) [address] [place] [address]238 Hematocrit (Bld) [Volume fraction] 39.7 % Normal 36.0-46.0 [facility] Comment on above: Performed By: #### 1 968-7 #### SHWETA ROCHA ([id number]) [facility]) [address] [place] [address] 74824 Hemoglobin (Bld) [Mass/Vol] 12.8 g/dL Normal 12.0-16.0 [facility] Comment on above: Performed By: #### 1 968-7 #### SHWETA ROCHA ([id number]) [facility]) [address] [place] [address] 49076 MCH (RBC) [Entitic mass] 30.8 pg Normal 26.0-34.0 [facility] Comment on above: Performed By: #### 1 968-7 #### SHWETA ROCHA ([id number]) [facility] ([facility]) [address] [place] [address] 28819 MCHC (RBC) [Mass/Vol] 32.2 g/dL Normal 32.0-36.0 [facility] Comment on above: Performed By: #### 1 968-7 #### SHWETA ROCHA ([id number]) [facility] ([facility]) [address] [place] [address] 93145 MCV (RBC) [Entitic vol] 96 fL Normal 80-100 [facility] Comment on above: Performed By: #### 1 968-7 #### SHWETA ROCHA ([id number]) [facility] ([facility]) [address] [place] [address] Nucleated RBC/100 WBC (Bld) [Ratio] 0.0 /100 WBCs Normal 0.0-0.0 [facility] Comment on above: Performed By: #### 1 968-7 #### SHWETA ROCHA ([id number]) [facility] ([facility]) [address] [place] [address] 72821 Platelets (Bld) [#/Vol] 268 x10*3/uL Normal 150-450 [facility] Comment on above: Performed By: #### 1 968-7 #### SHWETA ROCHA ([id number]) [facility] ([facility]) [address] [place] [address] RBC (Bld) [#/Vol] 4.15 x10*6/uL Normal 4.00-5.20 [facility] Comment on above: Performed By: #### 1 968-7 #### SHWETA ROCHA ([id number]) [facility] ([facility]) [address] [place] [address]140 WBC (Bld) [#/Vol] 6.6 x10*3/uL Normal 4.4-11.3 [facility] Comment on above: Performed By: #### 1 968-7 #### SHWETA ROCHA ([id number]) [facility] ([facility]) [address] [place] [address]33[address] Coding Summary 10-16-2023 Coding Summary HTMLBase 64 RlyduhyjPAu0aJt+PGhlYWQ +EV6XPTPfN87ueRZpaU0rD2 NMTElOSywgQVBQTElOSyIgb uRlYW0kgHAcPQEu IC8+BC9bBKTbUvutlMPib4V 4uNJ2Z33qmg1rRZcfgQQ2GJ PkXoHbigrta9ctmVx1EPlwF mluOyBt CVWwaJ76IVY2fR07Md83jYM viHZdj4oekDm5WgZoOAQoVD F3kOszKIgjn3WvDYPgZ18lu IDul9W8 FCIaeQsrfSQsKqJnsNB4hV8 gPCdxsxhgk6vbwzfbZbl1dh 22pMXxm3U8oRC8G0TubhO7C GJvbGQg UqfluJCTbV3uvtqdm8mjwef xPcNxPFLsBWr1PBa0GJAjyR waFjGzAQ06IOV7DXIypqPpH 2FsLWFs lUrmXuS3g9W7Zx2OJ2XVOqs gO8CNMFBHSAhdjYY+PC90cj 61N1MlVtngPjb1TTGwHAT0r ND8fS8m WFZzSZqmd1A8oFU4O5VbljQ yhv1dy3baBKRfKOoaK51uwC Ttd0O0MLUosPU7TKSqpOhvY iBzaG93 Oyc+QSOohGjfg3LdHtduz0c kv2nivBb1RshtPUPyxkWwdX xuXEX8d8XnYm5cVVKrjWI3b NF2xX8j QdYoUtJ4NHldX390XcYylFQ oJftoK89oJ6BitEH+PHRyPj x9IVPmqHjuCV3vU9DbVZSxz mctbGVm bPuiHR1vTFYvqndoZWLyiY3 qBZIeU8k3NjPfOjR7DQviS3 AjCVMexmvfUb74lS4bOdWpR mP7LUsb W6MnfhF9AOKxwCLuFOarVPQ 4Q62at4G4WIUjXZCpSQH7sC E3lO0tlWghhsgqnEYsuDzot mVydGlj WQrbZOooV412TLRqjVqcNrB vZGluZyBEYXRlOiAgMDcvMj QvMjAyNDwvdGQ+HKMsHCO1p WxlPSAn sFOhPWhtHn9ftCkvbNpfQY3 vUTZoeccxJZGduM4fSHKmiF IbjZnvBX3lAUPwkndrx549I iAxMHB0 AZFmpZRkB0TobM4tVdTpLBN hXYWmG9HplAVpTTvrP479CL sgQtE0WTPzgmWzP9QdNOOik WduOiB0 o3G7Cz0Wa0FyeoddN2WswSJ jRvCvYggsSTf6C9RnZwfvuO I+II95JCKdLJ66HMi6GCL2q WxlPSdi GAOhH2PepH8tMgJsBVPlXGU kOyc+PHRhYmxlIHdpZHRoPS kaKTPvXxGguRoxJG8yJm6xZ GVyLWNv hKdcqCPiSfFka2szPEUwAIx uQU4zgWeaF2CgwQS4EVEmy6 t9Pd08I41sV6BjdBJ+PGNvb PQ3iIH1 kP2gJnKvEjT9BMnpK984KcT atZPqMrluj0lpn7ddnIe5Df O8UDJzttTaySmkYLZ6d3QuG e57H46b IHdpZHRoPSIxNSUiIHZhbGl afm9gvG5vSt7+OUOjqPG7dE Q6iB5wCpPlNyH1CQljO724C nRvcCIv Vroab4cpx6jhgBd1EtSqXME jrtXroDvvEJP6a6XnZm18O6 JxlRwqd1FyHud5ah09qNCrn 0E9tWB1 K8LcXIDieszusDXimZfwCZ5 oPXBrlzybSIYdiH3lJQIbJ7 y4MuUbCzL0YRceY4EhodH0W GJvbGQg XNZebFVAjJ7wckaud2qooye mObYpYWYsKZf1CEv8RWDgeN aeRvXbXUM7JxT9QMU2oSGbh Z6ciXxw htvvhW9bBsy+WAN3bJFiuXF KHE7cUotdmOY+IZNmMGJ0wQ zdQGzlMOLtrE2ePOTvY8o3V iAwLjA1 GDylN9RfrtL5TKUcrNEiDMP qdWDUyB7limfav4ueomooXj YlRDWbXFe4ACf9PQPhaFuxP iBsZWZ0 FpY3TJH8lIRwtZ0psAykwnt xlV2hQwv+TrbdmEclBGA7AH b0W5IsFkr0CSLkrMerVN5gi GFkZGlu Fm0qtTripAvoRO9sFFCgoof qt329AqQuz7kbVBNjdOCnUK doPWR3L79dh5A1UIIeTHZrZ TG9sTO9 uA9tpRvficswtAMeeJwfpwQ gbIqgFAtdINaaD923VDDnfF aoKiLlCTd9E4ElUnq6OFVna CsdZL2q zPNjRDjfCq9ckYacrUqxCW4 kGQEgdxxyi692EjPgk2xrOO YmkNZyYUrtVUF1V22no7M0R CMwMDAw GCC1wDM0mV4oiOtfxqldyUM mdDsgdmVydGljYWwtYWxpZ2 52COFkmSjgBjPxuCy6B7CsQ pg2YBJa mKqpVN5bxCAuZTcoJb1lfKz fhPoxVG2uTXZowlqml406Dp Knu6ezJYZfxGYsGOioXDZ6D 51yx4X2 PZTuGYHdNCA0gFD0tM2auEp nbjogbGVmdDsgdmVydGljYW yaZBdtH991ZIRhqGksUxTbp GllbnQg ADtiIKj7V8AgYgjvzGF+PC9 3AVRiRW05bRPbsXArm8beuI q7TaLsMMJrBYY0uQgzVJhnx 3JkZXIt P23mkGCva3B2YVWhfVvltMG lVcSrwGC5rZ1iBEqhhtiqe2 nlkirhGywth4ygxb54xJ41U 29sIHdp ZHRoPSIzMCUiIHZhbGlnbj0 kkH7wLq2+JECbqFJ5xCK1uX 3mCXCfTtX8YYjjH814ZrZpq CIvPjxj i0bfk5iwwIi9IlR1AOYsaaJ ceZbuMMZ2t9SrWg58U47rGZ dpZHRoPSIyMCUiIHZhbGlnb v1qeA4z Ii8+TGFreUB2yIQ7yN3xNmS kDdH6QKleY752VsZzyWSjIz bfR56iW3JguIP+ZNOrBde4E CBzdHls SZ6faZXbJSldXi7nNAX2MfV sSyLxONdaS3GxEWBcvyyccg mquUB4ZCIfPDLaoX95Co6yy DogMTBw wSDWiN0vhcsyq2kbblxoSeG fCNDrLPn7BIj0HIUhhIzvYd SsJWW1XsP4ZPS1gEFnkC1sl Glnbjog yK5jE2SsRAYdmadfTk17uS2 jWxErIuA7GAytNwg+TElFQi nnLZVIJXCNTDVYFqlGKsI3B 0WhLpw3 NQIihPsoKX7fwNVmQGvqGu6 vmXdzjAagTX9fQIGfwrqrKJ YudS0kOCCgzNYfkPulFA1hN TBpbjtm i250LjKzMFY3PPXxvEAbX8I jcG9kAkQhOMHaVDEgY2KutE GrAQmbP252EYbnLyH0AKTxz gOmG5Wj SXRauKsxJhG5u6Q7Zc8kWt4 nYZ8cCHc8QM17XQ29qHNlj6 L2fFG7T3MuEPPuqbgefeuaa JJ2FFHx KWAqlN57dSFoDXauOl4bs2J 4b608MEUxNUJalT97Ys9ljF ecTGRbaYEHaS4hnzjfx9neb jogIzAw VAAvZCk3PCv0CADdnLudBjY sTSH6DuD6JBY6fLEkyK0krL gpushmqE0iGsr+NDYgWWVhc qN6W2Cj Jfs5RWYqtBvkHT5qvMNjKTl yEy3ocBvrvUpnKN0fULWyvq syPPXyfB1tUYLnjBKfuBxhI S8dLHTg ntbmo950DmChAJN5TAJetWW fH6BaxA2dJbZmBMGgNKNaT5 AxyUJxOFzkJ257KNsvNfX1N HZlcnRp D3BxGQYnrUpmOeD6k5U7En0 RDX7IZKP0E8KnOvb2OEFplG vlBS4rxHHrPNgkYs5ygJljl BnmZC0b KMZqbpzdKKQfxZ7fLHNscRP opLfiUH2tFMHnqzzwe625Lx TsHIW9FMRlwMFqI9QrrP4nM iAjMDAw CKQxK7JmpJJfQNqnV437JUf rUaL1HOSnxaMyY6VyHBKocV wmBrD6w7I4Vq0FhPRmN1CrX 2e0W5Ew PjwvdHI+TO46IKAlDK97rBD owXUop7hkdLu5NhFiDWJqZU O4fLikLCuqn8WzPFDyT70xq AJih4B5 LWOzfItwjNXbIxUziRL6mZ8 eGUamewjfi5hovbavPgfjg3 tnpe40nZ78V31pQZfiKAFbR SIzMCUi EPBbfBhdzm8esM2bSq2+PGN zhRM9oYF2vS1tCrSjRkF6JO kaO106HsKcjKDrQrqll0bek 3icdDw6 LdIpIDYiexYyzHdeFHV7z6E cAg69L78uNGzjTNCpDVUpSZ VxRQIfdZdqde4nyI5rZl8+P B2pk3un kp54hO02dRE+ILUrJUB6iEy qXJmtBFOqvO6dMVteQqL6HI MbTjDzmY51pWOzZAjjLs6gd WdodDog CZ1bNMQcnpexb356IbBqa8l rCTAnkNDvICiaMBC2R16lh5 U3MNSaDREzWXI8iVZ7gN5nu Glnbjog bGVmdDsgdmVydGljYWwtYWx xA197QRFosCydIpHbwHGjI9 eehzMYMO0vYquuhPA+PHRkI XY0bYpu ACcbVBAvwX3jHHDzP4s1JxM tIgR5VKjpS9FinoY4FNSgvP TyISGhdJFInT0gduyrt1ceu jogIzAw LGAlOWs0FXz4BRWckUtcNsW jCOD0EbL7SHT1nFSzzW9jtC fjtdphyE9dLdb+RklOOjwvd GQ+PHRk AND7uZglLRnsEFJzzS3aKXM cY6o5WkNvWoR7MZpmH6Brib B7JHEjeGZuSPYuuERUjD9mc ptoh6zb klpaLwOdGBWlTJd9BEl6FET daAyoHgKtLTS9MhJ6XNL6dP XtuS7nzNaehwfgtE2mCub+T VJOOjwv dGQ+VHOpWBO8uOwfUYqkYAV fpH0qBPYbU5y5MiCpSuQ0VJ lnX7NwrqF6NNPicNPlABCfv BNSeZ7e yixcb5phnmicXlRdHBPnONo 2MHq1WMJubOayKtYqQQY9Id Z2QFY9vWGhaY4wpNjorfhqf G9wOyc+ NVE5SXU0TT64JU19Y8KxKzb vdGFibGU+PHRhYmxlIHdpZH KiAVypITFzNsAtyXvbQC0tC d2gSOAb LWN (more content not included)... Normal [facility] Renal function 2000 panelon 10-16-2023 Albumin BCP dye [Mass/Vol] 3.7 g/dL Normal 3.4-5.0 [facility] Comment on above: Performed By: #### 1 968-7 #### SHWETA ROCHA ([id number]) [facility] ([facility]) [address] [place] [address] 25659 Anion gap [Moles/Vol] 11 mmol/L Normal 10-20 [facility] Comment on above: Performed By: #### 1 968-7 #### SHWETA ROCHA ([id number]) [facility] ([facility]) [address] [place] [address] 23771 Calcium [Mass/Vol] 8.1 mg/dL Low 8.6-10.6 [facility] Comment on above: Performed By: #### 1 968-7 #### SHWETA ROCHA ([id number]) [facility] ([facility]) [address] [place] [address] 23386 Chloride [Moles/Vol] 100 mmol/L Normal 98-107 [facility] Comment on above: Performed By: #### 1 968-7 #### BEATRIZIBRENE ROCHA ([id number]) [facility] ([facility]) [address] [place] [address] 21225 CO2 [Moles/Vol] 30 mmol/L Normal 21-32 [facility] Comment on above: Performed By: #### 1 968-7 #### BEATRIZIBRENE ROCHA ([id number]) [facility] ([facility]) [address] [place] [address] 98498 Creatinine [Mass/Vol] 0.62 mg/dL Normal 0.50-1.05 [facility] Comment on above: Performed By: #### 1 968-7 #### SHWETA ROCHA ([id number]) [facility] ([facility]) [address] [place] [address] 63120 GFR/1.73 sq M.predicted MDRD (S/P/Bld) [Vol rate/Area] mL/min/{1.73_m2} Normal >60 [facility] Comment on above: Result Comment: Calc ulations of estimated GFR are performed using the 2020 CKD-EPI Study Refit equation without the race variable for the IDMS-Traceable creatinine methods. https://jasn.asnjournals.org/content/early/ASN.99081 89124 Performed By: #### 1 968-7 #### SHWETA ROCHA ([id number]) [facility] ([facility]) [address] [place] [address] 24398 Glucose [Mass/Vol] 86 mg/dL Normal 74-99 [facility] Comment on above: Performed By: #### 1 968-7 #### SHWETA ROCHA ([id number]) [facility] ([facility]) [address] [place] [address] 19680 Phosphate [Mass/Vol] 3.6 mg/dL Normal 2.5-4.9 [facility] Comment on above: Result Comment: The performance characteristics of phosphorus testing in heparinized plasma have been validated by the individual laboratory site where testing is performed. Testing on heparinized plasma is not approved by the FDA; however, such approval is not necessary. Performed By: #### 1 968-7 #### SHWETA ROCHA ([id number]) [facility]) [address] [place] [address] 79878 Potassium [Moles/Vol] 4.3 mmol/L Normal 3.5-5.3 [facility] Comment on above: Performed By: #### 1 968-7 #### SHWETA ROCHA ([id number]) [facility]) [address] [place] [address] 03867 Sodium [Moles/Vol] 137 mmol/L Normal 136-145 [facility] Comment on above: Performed By: #### 1 968-7 #### SHWETA ROCHA ([id number]) [facility]) [address] [place] [address] 11678 Urea nitrogen [Mass/Vol] 16 mg/dL Normal 6- [facility] Comment on above: Performed By: #### 1 968-7 #### SHWETA ROCHA ([id number]) [facility] ([facility]) [address] [place] [address] 89106 CBC panel Auto (Bld)on 10-14 Erythrocyte distribution width (RBC) [Ratio] 13.0 % Normal 11.5-14.5 [facility] Comment on above: Order Comment: After transfusion completed. Performed By: #### 1 968-7 #### SHWETA ROCHA ([id number]) [facility] ([facility]) [address] [place] [address] 51975 Hematocrit (Bld) [Volume fraction] 36.2 % Normal 36.0-46.0 [facility] Comment on above: Order Comment: After transfusion completed. Performed By: #### 1 968-7 #### SHWETA ROCHA ([id number]) [facility]) [address] [place] [address] 03015 Hemoglobin (Bld) [Mass/Vol] 12.4 g/dL Normal 12.0-16.0 [facility] Comment on above: Order Comment: After transfusion completed. Performed By: #### 1 968-7 #### SHWETA ROCHA ([id number]) [facility]) [address] [place] [address] 62121 MCH (RBC) [Entitic mass] 31.5 pg Normal 26.0-34.0 [facility] Comment on above: Order Comment: After transfusion completed. Performed By: #### 1 968-7 #### SHWETA ROCHA ([id number]) [facility] ([facility]) [address] [place] [address] 24048 MCHC (RBC) [Mass/Vol] 34.3 g/dL Normal 32.0-36.0 [facility] Comment on above: Order Comment: After transfusion completed. Performed By: #### 1 968-7 #### SHWETA ROCHA ([id number]) [facility] ([facility]) [address] [place] [address] 83575 MCV (RBC) [Entitic vol] 92 fL Normal 80-100 [facility] Comment on above: Order Comment: After transfusion completed. Performed By: #### 1 968-7 #### SHWETA ROCHA ([id number]) [facility] ([facility]) [address] [place] [address] 71297 Nucleated RBC/100 WBC (Bld) [Ratio] 0.0 /100 WBCs Normal 0.0-0.0 [facility] Comment on above: Order Comment: After transfusion completed. Performed By: #### 1 968-7 #### SHWETA ROCHA ([id number]) [facility] ([facility]) [address] [place] [address] 72761 Platelets (Bld) [#/Vol] 261 x10*3/uL Normal 150-450 [facility] Comment on above: Order Comment: After transfusion completed. Performed By: #### 1 968-7 #### SHWETA ROCHA ([id number]) [facility] ([facility]) [address] [place] [address] 26166 RBC (Bld) [#/Vol] 3.94 x10*6/uL Low 4.00-5.20 [facility] Comment on above: Order Comment: After transfusion completed. Performed By: #### 1 968-7 #### SHWETA ROCHA ([id number]) [facility] ([facility]) [address] [place] [address] 17326 WBC (Bld) [#/Vol] 10.8 x10*3/uL Normal 4.4-11.3 [facility] Comment on above: Order Comment: After transfusion completed. Performed By: #### 1 968-7 #### SHWETA ROCHA ([id number]) [facility] ([facility]) [address] [place] [address]72 Vancomycinon 10-15-2023 Vancomycin [Mass/Vol] 17.4 ug/mL Normal 5.0-20.0 [facility] Comment on above: Order Comment: Vanco [...] By: #### 1 968-7 #### SHWETA ROCHA ([id number]) [facility] ([facility]) [address] [place] [address] Bacteria identifiedon 2023 Bacteria identified Cx Nom (Unsp spec) Test: Tissue/Wound Culture/Smear Specimen Source: HARDWARE Specimen Type: Swab Specimen Date: 10/14/2023 1436 Result Date: 10/16/2023 1013 Result Status: Final result Resulting Lab: [facility] [id number] [place] [address] CULTURE No growth aerobically and anaerobically STAIN (1+) Rare Polymorphonuclear leukocytes No organisms seen [facility] Comment on above: Performed By: #### 1 968-7 #### SHWETA ROCHA ([id number]) [facility] ([facility]) [address] [place] [address] Bacteria identified Cx Nom (Unsp spec) Test: Tissue/Wound Culture/Smear Specimen Source: HARDWARE Specimen Type: Swab Specimen Date: 10/14/20231434 Result Date: 10/16/2023 1013 Result Status: Final result Resulting Lab: [facility] [address] [place] [address] CULTURE No growth aerobically and anaerobically STAIN No polymorphonuclear leukocytes seen No organisms seen Normal [facility] Comment on above: Performed By: #### 1 498-3 #### SHWETA ROCHA ([id number]) [facility] ([facility]) [address] [place] [address] Bacteria identified Cx Nom (Unsp spec) Test: Tissue/Wound Culture/Smear Specimen Source: VERTEBRAL BIOPSY Specimen Type: Swab Specimen Date: 10/14/20231419 Result Date: 10/16/2023 1008 Result Status: Final result Resulting Lab: [facility] [address] [place] [address] CULTURE No growth aerobically and anaerobically STAIN (1+) Rare Polymorphonuclear leukocytes No organisms seen Normal [facility] Comment on above: Performed By: #### 1 523-5 #### SHWETA ROCHA ([id number]) [facility] ([facility]) [address] [place] [address] Bacteria identified Cx Nom (Unsp spec) Test: Tissue/Wound Culture/Smear Specimen Source: VERTEBRAL BIOPSY Specimen Type: Swab Specimen Date: 10/14/2023 141 Result Date: 10/16/2023 100 Result Status: Final result Resulting Lab: [facility] [address] [place] [address] CULTURE No growth aerobically and anaerobically STAIN No polymorphonuclear leukocytes seen No organisms seen Normal [facility] Comment on above: Performed By: #### 1 968-7 #### SHWETA ROCHA ([id number]) [facility] ([facility]) [address] [place] [address] Bacteria identified Cx Nom (Unsp spec) Test: Tissue/Wound Culture/Smear Specimen Source: VERTEBRAL BIOPSY Specimen Type: Swab Specimen Date: 10/14/2023 1409 Result Date: 10/16/2023 1008 Result Status: Final result Resulting Lab: [facility] [address] [address] CULTURE No growth aerobically and anaerobically STAIN No polymorphonuclear leukocytes seen No organisms seen [facility] Comment on above: Performed By: #### 1 968-7 #### SHWETA ROCHA ([id number]) [facility] ([facility]) [address] [place] [address] Blood type and Indirect anti body screen panel (Bld)on 10-13-2023 ABO group Nom (Bld) O Normal [facility] Comment on above: Performed By: #### 2 4323-8 #### SHWETA ROCHA ([id number]) [facility] ([facility]) [address] [place] [address] Blood group antibody screen Ql Negative [facility] Comment on above: Performed By: #### 2 4323-8 #### SHWETA ROCHA ([id number]) [facility] ([facility]) [address] [place] [address] D Ag Ql (Bld) Positive [facility] Comment on above: Performed By: #### 2 4323-8 #### SHWETA ROCHA ([id number]) [facility] ([facility]) [address] [place] [address] CBC panel Auto (Bld)on 10-12 Erythrocyte distribution width (RBC) [Ratio] 12.9 % Normal 11.5-14.5 [facility] Comment on above: Performed By: #### 2 4323-8 #### SHWETA ROCHA ([id number]) [facility] ([facility]) [address] [place] [address] 90658 Hematocrit (Bld) [Volume fraction] 38.9 % Normal 36.0-46.0 [facility] Comment on above: Performed By: #### 2 4323-8 #### SHWETA ROCHA ([id number]) [facility] LAB ([facility]) [address] [place] [address] 40321 Hemoglobin (Bld) [Mass/Vol] 12.7 g/dL Normal 12.0-16.0 [facility] Comment on above: Performed By: #### 2 4323-8 #### SHWETA ROCHA ([id number]) [facility] ([facility]) [address] [place] [address] 55952 MCH (RBC) [Entitic mass] 30.4 pg Normal 26.0-34.0 [facility] Comment on above: Performed By: #### 2 4323-8 #### SHWETA ROCHA ([id number]) [facility] ([facility]) [address] [place] [address] 07966 MCHC (RBC) [Mass/Vol] 32.6 g/dL Normal 32.0-36.0 [facility] Comment on above: Performed By: #### 2 4323-8 #### SHWETA ROCHA ([id number]) [facility] ([facility]) [address] [place] [address] 77217 MCV (RBC) [Entitic vol] 93 fL Normal 80-100 [facility] Comment on above: Performed By: #### 2 4323-8 #### SHWETA ROCHA ([id number]) [facility] ([facility]) [address] [place] [address] 44266 Nucleated RBC/100 WBC (Bld) [Ratio] 0.0 /100 WBCs Normal 0.0-0.0 [facility] Comment on above: Performed By: #### 2 4323-8 #### SHWETA ROCHA ([id number]) [facility] ([facility]) [address] [place] [address] 45117 Platelets (Bld) [#/Vol] 293 x10*3/uL Normal 150-450 [facility] Comment on above: Performed By: #### 2 4323-8 #### SHWETA ROCHA ([id number]) [facility] ([facility]) [address] [place] [address] 02931 RBC (Bld) [#/Vol] 4.18 x10*6/uL Normal 4.00-5.20 [facility] Comment on above: Performed By: #### 2 4323-8 #### SHWETA ROCHA ([id number]) [facility] ([facility]) [address] [place] [address] 60272 WBC (Bld) [#/Vol] 5.5 x10*3/uL Normal 4.4-11.3 [facility] Comment on above: Performed By: #### 2 4323-8 #### SHWETA ROCHA ([id number]) [facility] ([facility]) [address] [place] [address] HCG ( test) IA.rapi d Ql (U)on 10-13-2023 HCG ( test) Ql (U) Negative Normal NEGATIVE [facility] Comment on above: Performed By: #### 2 4323-8 #### SHWETA ROCHA ([id number]) [facility] ([facility]) [address] [place] [address] 92535 PT and aPTT panel Coag (PPP) on 10-13-2023 aPTT Coag (PPP) [Time] 28 s Normal 27-38 [facility] Comment on above: Order Comment: The A PTT is no longer used for monitoring Unfractionated Heparin Therapy. For monitoring Heparin Therapy, use the Heparin Assay. Performed By: #### 2 4323-8 #### SHWETA ROCHA ([id number]) [facility] ([facility]) [address] [place] [address] 28552 INR Coag (PPP) [Relative time] 1.0 Normal 0.9-1.1 [facility] Comment on above: Order Comment: The A PTT is no longer used for monitoring Unfractionated Heparin Therapy. For monitoring Heparin Therapy, use the Heparin Assay. Performed By: #### 2 4323-8 #### SHWETA ROCHA ([id number]) [facility] ([facility]) [address] [place] [address] 21214 PT Coag (PPP) [Time] 10.9 s Normal 9.8-12.8 [facility] Comment on above: Order Comment: The A PTT is no longer used for monitoring Unfractionated Heparin Therapy. For monitoring Heparin Therapy, use the Heparin Assay. Performed By: #### 2 4323-8 #### SHWETA ROCHA ([id number]) [facility] (C) [address] [place] [address] 10301 Renal function 2000 panelon 10-13-2023 Albumin BCP dye [Mass/Vol] 3.6 g/dL Normal 3.4-5.0 [facility] Comment on above: Performed By: #### 2 4323-8 #### SHWETA ROCHA ([id number]) [facility] ([facility]) [address] [place] [address] 94933 Anion gap [Moles/Vol] 14 mmol/L Normal 10-20 [facility] Comment on above: Performed By: #### 2 4323-8 #### SHWETA ROCHA ([id number]) [facility] ([facility]) [address] [place] [address] 54567 Calcium [Mass/Vol] 8.0 mg/dL Low 8.6-10.6 [facility] Comment on above: Performed By: #### 2 4323-8 #### SHWETA ROCHA ([id number]) [facility] ([facility]) [address] [place] [address] 76765 Chloride [Moles/Vol] 104 mmol/L Normal 98-107 [facility] Comment on above: Performed By: #### 2 4323-8 #### SHWETA ROCHA ([id number]) [facility] ([facility]) [address] [place] [address] CO2 [Moles/Vol] 24 mmol/L Normal 21-32 [facility] Comment on above: Performed By: #### 2 4323-8 #### SHWETA ROCHA ([id number]) [facility] ([facility]) [address] [place] [address] 52125 Creatinine [Mass/Vol] 0.70 mg/dL Normal 0.50-1.05 [facility] Comment on above: Performed By: #### 2 4323-8 #### SHWETA ROCHA ([id number]) [facility] ([facility]) [address] [place] [address] 95922 GFR/1.73 sq M.predicted MDRD (S/P/Bld) [Vol rate/Area] mL/min/{1.73_m2} Normal >60 [facility] Comment on above: Result Comment: Calc ulations of estimated GFR are performed using the 2020 CKD-EPI Study Refit equation without the race variable for the IDMS-Traceable creatinine methods. https://jasn.asnjournals.org/content/early//ASN.59739 28697 Performed By: #### 2 4323-8 #### SHWETA ROCHA ([id number]) [facility] ([facility]) [address] [place] [address] 93878 Glucose [Mass/Vol] 129 mg/dL High 74-99 [facility] Comment on above: Performed By: #### 2 4323-8 #### SHWETA ROCHA ([id number]) [facility] ([facility]) [address] [place] [address] 85424 Phosphate [Mass/Vol] 2.2 mg/dL Low 2.5-4.9 [facility] Comment on above: Result Comment: The performance characteristics of phosphorus testing in heparinized plasma have been validated by the individual laboratory site where testing is performed. Testing on heparinized plasma is not approved by the FDA; however, such approval is not necessary. Performed By: #### 2 4323-8 #### SHWETA ROCHA ([id number]) [facility] ([facility]) [address] [place] [address] 02765 Potassium [Moles/Vol] 3.7 mmol/L Normal 3.5-5.3 [facility] Comment on above: Performed By: #### 2 4323-8 #### SHWETA ROCHA ([id number]) [facility] ([facility]) [address] [place] [address] 14136 Sodium [Moles/Vol] 138 mmol/L Normal 136-145 [facility] Comment on above: Performed By: #### 2 432-8 #### SHWETA ROCHA ([id number]) [facility] ([facility]) [address] [place] [address] 51648 Urea nitrogen [Mass/Vol] 12 mg/dL Normal 6-23 [facility] Comment on above: Performed By: #### 2 432-8 #### SHWETA ROCHA ([id number]) [facility] ([facility]) [address] [place] [address] 39903 Urinalysis complete panel (U )on 10-13-2023 Appearance (U) Clear Normal Clear [facility] Comment on above: Performed By: #### 2 4323-8 #### SHWETA ROCHA ([id number]) [facility] ([facility]) [address] [place] [address] 81842 Bilirubin (U) [Mass/Vol] Negative Normal NEGATIVE [facility] Comment on above: Performed By: #### 2 4323-8 #### SHWETA ROCHA ([id number]) [facility] ([facility]) [address] [place] [address] 06855 Color (U) Light-Yellow Normal Light-Yellow , Yellow, Dark-Yellow [facility] Comment on above: Performed By: #### 2 4323-8 #### SHWETA ROCHA ([id number]) [facility] ([facility]) [address] [place] [address] 73801 Glucose Auto test strip (U) [Mass/Vol] Normal Normal Normal [facility] Comment on above: Performed By: #### 2 4323-8 #### SHWETA ROCHA ([id number]) [facility] ([facility]) [address] [place] [address] 69791 Ketones (U) [Mass/Vol] TRACE Abnormal NEGATIVE Un [facility] Comment on above: Performed By: #### 2 4323-8 #### SHWETA ROCHA ([id number]) [facility] (EM) [address] [place] [address] 04941 Leukocyte esterase Auto test strip Ql (U) Negative Normal NEGATIVE [facility] Comment on above: Performed By: #### 2 4323-8 #### SHWETA ROCHA ([id number]) [facility] ([facility]) [address] [place] [address] 89123 Nitrite Auto test strip Ql (U) Negative Normal NEGATIVE [facility] Comment on above: Performed By: #### 2 4323-8 #### SHWETA ROCHA ([id number]) [facility] ([facility]) [address] [place] [address] 73857 pH (U) 6.5 [pH] Normal 5.0, 5.5, 6.0, 6.5, 7.0, 7.5, 8.0 [facility] Comment on above: Performed By: #### 2 4323-8 #### SHWETA ROCHA ([id number]) [facility] ([facility]) [address] [place] [address] 96175 Protein (U) [Mass/Vol] Negative Normal NEGAT ALEXANDRE, 10 (TRACE), 20 (TRACE) [facility] Comment on above: Performed By: #### 2 4323-8 #### SHWETA ROCHA ([id number]) [facility] ([facility]) [address] [place] [address] 08912 RBC (U) [#/Vol] Negative Normal NEGATIVE [facility] Comment on above: Performed By: #### 2 4323-8 #### SHWETA ROCHA ([id number]) [facility] ([facility]) [address] [place] [address] 96307 Specific gravity (U) [Rel density] 1.016 Normal 1.005-1.035 [facility] Comment on above: Performed By: #### 2 4323-8 #### SHWETA ROCHA ([id number]) [facility] ([facility]) [address] [place] [address] 73241 Urobilinogen (U) [Mass/Vol] Normal Normal Normal [facility] Comment on above: Performed By: #### 2 4323-8 #### SHWETA ROCHA ([id number]) [facility] ([facility]) [address] [place] [address] Vancomycinon 10-13-2023 Vancomycin [Mass/Vol] 15.8 ug/mL Normal 5.0-20.0 [facility] Comment on above: Order Comment: Vanco [...] 2 4323-8 #### SHWETA BARNETT RIO KEY ([id number]) [facility] (EM) [address] [place] [address] 50093 PICC >5 YR BEDSIDE IMAGINGon 10-12-2023 PICC >5 YR BEDSIDE IMAGING These images are not reportable by radiology and will not be interpreted by Radiologists. Normal [facility] Vancomycinon 10-12-2023 Vancomycin [Mass/Vol] 4.7 ug/mL Low 5.0-20.0 [facility] Comment on above: Order Comment: Vanco [...] By: #### 2 4323-8 #### SHWETA ROCHA ([id number]) [facility] ([facility]) [address] [place] [address] 89665 Blood type and Indirect anti body screen panel (Bld)on 10-11-2023 ABO group Nom (Bld) O [facility] Comment on above: Performed By: #### 2 4323-8 #### BEATRIZIBELIGANESH ROCHA ([id number]) [facility] ([facility]) [address] [place] [address] 72177 Blood group antibody screen Ql Negative [facility] Comment on above: Performed By: #### 2 4323-8 #### BEATRIZIBELIGANESH ROCHA (55353) [facility] ([facility]) [address] [place] [address] 04617 D Ag Ql (Bld) Positive [facility] Comment on above: Performed By: #### 2 4323-8 #### BEATRIZIBELIGANESH ROCHA ([id number]) [facility] ([facility]) [address] [place] [address] 58823 C reactive proteinon 024 CRP [Mass/Vol] 1.04 mg/dL High <1.00 [facility] Comment on above: Performed By: #### 5 6888-1 #### JOLENE Cantu ([id number]) [facility] ([facility]) [address] [place] [address] 04434 CBC W Auto Differential pane l (Bld)on 10-11-2023 Basophils (Bld) [#/Vol] 0.03 x10*3/uL Normal 0.00-0.10 [facility] Comment on above: Performed By: #### 5 6888-1 #### JOLNEE Cantu ([id number]) [facility] ([facility]) [address] [place] [address] 19503 Basophils/100 WBC (Bld) 0.3 % Normal 0.0-2.0 [facility] Comment on above: Performed By: #### 5 6888-1 #### JOLENE Cantu ([id number]) [facility] ([facility]) [address] [place] [address] 56778 Eosinophils (Bld) [#/Vol] 0.27 x10*3/uL Normal 0.00-0.70 [facility] Comment on above: Performed By: #### 5 6888-1 #### JOLENE Cantu ([id number]) [facility] ([facility]) [address] [place] [address] 79560 Eosinophils/100 WBC (Bld) 2.4 % Normal 0.0-6.0 [facility] Comment on above: Performed By: #### 5 6888-1 #### JOLENE Cantu ([id number]) [facility] ([facility]) [address] [place] [address] 61825 Erythrocyte distribution width (RBC) [Ratio] 12.9 % Normal 11.5-14.5 [facility] Comment on above: Performed By: #### 5 6888-1 #### JOLENE Cantu ([id number]) [facility] ([facility]) [address] [place] [address] 78468 Hematocrit (Bld) [Volume fraction] 39.2 % Normal 36.0-46.0 [facility] Comment on above: Performed By: #### 5 6888-1 #### JOLENE Cantu ([id number]) [facility] ([facility]) [address] [place] [address] 69383 Hemoglobin (Bld) [Mass/Vol] 13.6 g/dL Normal 12.0-16.0 [facility] Comment on above: Performed By: #### 5 6888-1 #### JOLENE Cantu ([id number]) [facility] ([facility]) [address] [place] [address] Immature granulocytes (Bld) [#/Vol] 0.05 x10*3/uL Normal 0.00-0.70 [facility] Comment on above: Performed By: #### 5 6888-1 #### JOLENE Cantu ([id number]) [facility] ([facility]) [address] [place] [address] Immature granulocytes/100 WBC (Bld) 0.4 % Normal 0.0-0.9 [facility] Comment on above: Result Comment: Aspen ture Granulocyte Count (IG) includes promyelocytes, myelocytes and metamyelocytes but does not include bands. Percent differential counts (%) should be interpreted in the context of the absolute cell counts (cells/UL). Performed By: #### 5 6888-1 #### JOLENE Cantu ([id number]) [facility] ([facility]) [address] [place] [address] Lymphocytes (Bld) [#/Vol] 2.27 x10*3/uL Normal 1.20-4.80 [facility] Comment on above: Performed By: #### 5 6888-1 #### JOLENE Cantu ([id number]) [facility] ([facility]) [address] [place] [address] Lymphocytes/100 WBC (Bld) 19.9 % Normal 13.0-44.0 [facility] Comment on above: Performed By: #### 5 6888-1 #### JOLENE Cantu ([id number]) [facility] ([facility]) [address] [place] [address] MCH (RBC) [Entitic mass] 31.0 pg Normal 26.0-34.0 [facility] Comment on above: Performed By: #### 5 6888-1 #### JOLENE Cantu ([id number]) [facility] ([facility]) [address] [place] [address] MCHC (RBC) [Mass/Vol] 34.7 g/dL Normal 32.0-36.0 [facility] Comment on above: Performed By: #### 5 6888-1 #### JOLENE Cantu ([id number]) [facility] ([facility]) [address] [place] [address] 79573 MCV (RBC) [Entitic vol] 89 fL Normal 80-100 [facility] Comment on above: Performed By: #### 5 6888-1 #### JOLENE Cantu ([id number]) [facility] ([facility]) [address] [place] [address] 97873 Monocytes (Bld) [#/Vol] 0.77 x10*3/uL Normal 0.10-1.00 [facility] Comment on above: Performed By: #### 5 6888-1 #### JOLENE Cnatu ([id number]) [facility] ([facility]) [address] [place] [address] 55346 Monocytes/100 WBC (Bld) 6.8 % Normal 2.0-10.0 [facility] Comment on above: Performed By: #### 5 6888-1 #### JOLENE Cantu (62528) [facility] ([facility]) [address] [place] [address] 85772 Neutrophils (Bld) [#/Vol] 8.01 x10*3/uL High 1.20-7.70 [facility] Comment on above: Result Comment: Perc ent differential counts (%) should be interpreted in the context of the absolute cell counts (cells/uL). Performed By: #### 5 6888-1 #### JOLENE RONQUILLO L ([id number]) [facility] ([facility]) [address] [place] [address] Neutrophils/100 WBC (Bld) 70.2 % Normal 40.0-80.0 [facility] Comment on above: Performed By: #### 5 6888-1 #### JOLENE Cantu ([id number]) [facility] ([facility]) [address] [place] [address] 86816 Nucleated RBC/100 WBC (Bld) [Ratio] 0.0 /100 WBCs Normal 0.0-0.0 [facility] Comment on above: Performed By: #### 5 6888-1 #### JOLENE Cantu ([id number]) [facility] ([facility]) [address] [place] [address] 31443 Platelets (Bld) [#/Vol] 371 x10*3/uL Normal 150-450 [facility] Comment on above: Performed By: #### 5 6888-1 #### JOLENE Cantu (81071) [facility] ([facility]) [address] [place] [address] 85553 RBC (Bld) [#/Vol] 4.39 x10*6/uL Normal 4.00-5.20 [facility] Comment on above: Performed By: #### 5 6888-1 #### JOLNEE Cantu ([id number]) [facility] ([facility]) [address] [place] [address] 78499 WBC (Bld) [#/Vol] 11.4 x10*3/uL High 4.4-11.3 [facility] Comment on above: Performed By: #### 5 6888-1 #### JOLENE Cantu ([id number]) [facility] ([facility]) [address] [place] [address] 43996 CBC panel Auto (Bld)on 10-10 Erythrocyte distribution width (RBC) [Ratio] 13.0 % Normal 11.5-14.5 [facility] Comment on above: Performed By: #### 5 6888-1 #### JOLENE Cantu ([id number]) [facility] ([facility]) [address] [place] [address] 26544 Hematocrit (Bld) [Volume fraction] 38.2 % Normal 36.0-46.0 [facility] Comment on above: Performed By: #### 5 6888-1 #### JOLENE Cantu (04016) [facility] ([facility]) [address] [place] [address] 45945 Hemoglobin (Bld) [Mass/Vol] 12.5 g/dL Normal 12.0-16.0 [facility] Comment on above: Performed By: #### 5 6888-1 #### JOLENE Cantu (66554) [facility] ([facility]) [address] [place] [address] 10467 MCH (RBC) [Entitic mass] 30.3 pg Normal 26.0-34.0 [facility] Comment on above: Performed By: #### 5 6888-1 #### JOLENE Cantu ([id number]) [facility] ([facility]) [address] [place] [address] 86255 MCHC (RBC) [Mass/Vol] 32.7 g/dL Normal 32.0-36.0 [facility] Comment on above: Performed By: #### 5 6888-1 #### JOLENE Cantu (10600) [facility] ([facility]) [address] [place] [address] 33809 MCV (RBC) [Entitic vol] 93 fL Normal 80-100 [facility] Comment on above: Performed By: #### 5 6888-1 #### JOLENE Cantu (26426) [facility] ([facility]) [address] [place] [address] 23792 Nucleated RBC/100 WBC (Bld) [Ratio] 0.0 /100 WBCs Normal 0.0-0.0 [facility] Comment on above: Performed By: #### 5 6888-1 #### JOLENE Cantu (78112) [facility] ([facility]) [address] [place] [address] 26230 Platelets (Bld) [#/Vol] 353 x10*3/uL Normal 150-450 [facility] Comment on above: Performed By: #### 5 6888-1 #### JOLENE Cantu (70559) [facility] ([facility]) [address] [place] [address] RBC (Bld) [#/Vol] 4.13 x10*6/uL Normal 4.00-5.20 [facility] Comment on above: Performed By: #### 5 6888-1 #### JOLENE Cantu ([id number]) [facility] ([facility]) [address] [place] [address] 18511 WBC (Bld) [#/Vol] 10.4 x10*3/uL Normal 4.4-11.3 [facility] Comment on above: Performed By: #### 5 6888-1 #### JOLENE Cantu (50631) [facility] ([facility]) [address] [place] [address] 01377 Coagulation surface inducedo n 10-11-2023 aPTT Coag (PPP) [Time] 33 s Normal 27-38 [facility] Comment on above: Order Comment: HIV A g/Ab screen is performed using the Siemens AtellSuper Vitamin D HIV Ag/Ab Combo assay which detects the presence of HIV p24 antigen as well as antibodies to HIV-1 (Group M and O) and HIV-2. No laboratory evidence of HIV infection. If acute HIV infection is suspected, consider testing for HIV RNA by PCR (viral load). Performed By: #### 5 6888-1 #### JOLENE Cantu (84830) [facility] ([facility]) [address] [place] [address] 92214 Coagulation tissue factor in ducedon 10-11-2023 PT Coag (PPP) [Time] 10.4 s Normal 9.8-12.8 [facility] Comment on above: Performed By: #### 5 6888-1 #### JOLENE Cantu (10707) [facility] ([facility]) [address] [place] [address] 32155 Comprehensive metabolic 2000 panelon 10-11-2023 Albumin BCP dye [Mass/Vol] 4.1 g/dL Normal 3.4-5.0 [facility] Comment on above: Performed By: #### 5 6888-1 #### JOLENE Cantu (42923) [facility] ([facility]) [address] [place] [address] ALP [Catalytic activity/Vol] 88 U/L Normal 33-110 [facility] Comment on above: Performed By: #### 5 6888-1 #### JOLENE Cantu (05458) [facility] ([facility]) [address] [place] [address] ALT With P-5'-P [Catalytic activity/Vol] 15 U/L Normal 7-45 [facility] Comment on above: Result Comment: Katia ents treated with Sulfasalazine may generate falsely decreased results for ALT. Performed By: #### 5 6888-1 #### JOLENE Cantu ([id number]) [facility] ([facility]) [address] [place] [address] Anion gap [Moles/Vol] 12 mmol/L Normal 10-20 [facility] Comment on above: Performed By: #### 5 6888-1 #### JOLENE Cantu (20961) [facility] ([facility]) [address] [place] [address] AST With P-5'-P [Catalytic activity/Vol] 16 U/L Normal 9-39 [facility] Comment on above: Performed By: #### 5 6888-1 #### JOLENE Cantu (29078) [facility] ([facility]) [address] [place] [address] 16709 Bilirubin [Mass/Vol] 0.3 mg/dL Normal 0.0-1.2 [facility] Comment on above: Performed By: #### 5 6888-1 #### JOLENE Cantu (61913) [facility] ([facility]) [address] [place] [address] 40587 Calcium [Mass/Vol] 8.5 mg/dL Low 8.6-10.6 [facility] [place] Comment on above: Performed By: #### 5 6888-1 #### JOLENE Cantu ([id number]) [facility] ([facility]) [address] [place] [address] Chloride [Moles/Vol] 102 mmol/L Normal 98-107 [facility] Comment on above: Performed By: #### 5 6888-1 #### JOLENE Cantu ([id number]) [facility] ([facility]) [address] [place] [address] CO2 [Moles/Vol] 27 mmol/L Normal 21-32 [facility] Comment on above: Performed By: #### 5 6888-1 #### JOLENE Cantu ([id number]) [facility] ([facility]) [address] [place] [address] Creatinine [Mass/Vol] 0.77 mg/dL Normal 0.50-1.05 [facility] Comment on above: Performed By: #### 5 6888-1 #### JOLENE Cantu ([id number]) [facility] ([facility]) [address] [place] [address] GFR/1.73 sq M.predicted MDRD (S/P/Bld) [Vol rate/Area] mL/min/{1.73_m2} Normal >60 [facility] Comment on above: Result Comment: Calc ulations of estimated GFR are performed using the 2020 CKD-EPI Study Refit equation without the race variable for the IDMS-Traceable creatinine methods. https://jasn.asnjournals.org/content//ASN.03732 11643 Performed By: #### 5 6888-1 #### JOLENE Cantu ([id number]) [facility] CENTER) [address] [place] [address] Glucose [Mass/Vol] 85 mg/dL Normal 74-99 [facility] Comment on above: Performed By: #### 5 6888-1 #### JOLENE Cantu ([id number]) [facility] ([facility]) [address] [place] [address] Potassium [Moles/Vol] 3.8 mmol/L Normal 3.5-5.3 [facility] Comment on above: Performed By: #### 5 6888-1 #### JOLENE Cantu ([id number]) [facility] ([facility]) [address] [place] [address] Protein [Mass/Vol] 7.5 g/dL Normal 6.4-8.2 [facility] Comment on above: Performed By: #### 5 6888-1 #### JOLENE Cantu ([id number]) [facility] ([facility]) [address] [place] [address] Sodium [Moles/Vol] 137 mmol/L Normal 136-145 [facility] Comment on above: Performed By: #### 5 6888-1 #### JOLENE Cantu ([id number]) [facility] ([facility]) [address] [place] [address] Urea nitrogen [Mass/Vol] 18 mg/dL Normal 6-23 [facility] Comment on above: Performed By: #### 5 6888-1 #### JOLENE Cantu ([id number]) [facility] ([facility]) [address] [place] [address] ESR Westergren method (Bld) [Velocity]on 10-11-2023 ESR (Bld) [Velocity] 26 mm/h High 0-20 [facility] Comment on above: Performed By: #### 5 6888-1 #### JOLENE Cantu ([id number]) [facility] ([facility]) [address] [place] [address] Magnesiumon 10-11-2023 Magnesium [Mass/Vol] 1.99 mg/dL Normal 1.60-2.40 [facility] Comment on above: Performed By: #### 5 6888-1 #### JOLENE Cantu ([id number]) [facility] ([facility]) [address] [place] [address] PT Coag (PPP) [Time]on 10-10 INR Coag (PPP) [Relative time] 0.9 Normal 0.9-1.1 [facility] Comment on above: Performed By: #### 5 6888-1 #### JOLENE Cantu ([id number]) [facility] ([facility]) [id number] [place] [address] PT and aPTT panel Coag (PPP) on 10-11-2023 aPTT Coag (PPP) [Time] 32 s Normal 27-38 [facility] Comment on above: Order Comment: HIV [...] By: #### 5 6888-1 #### JOLENE Cantu ([id number]) [facility] ([facility]) [id number] [place] [address] INR Coag (PPP) [Relative time] 1.0 Normal 0.9-1.1 [facility] Comment on above: Order Comment: HIV [...] By: #### 5 6888-1 #### JOLENE Cantu ([id number]) [facility] ([facility]) [address] [place] [address] PT Coag (PPP) [Time] 11.3 s Normal 9.8-12.8 [facility] Comment on above: Order Comment: [...] By: #### 5 6888-1 #### JOLENE Cantu ([id number]) [facility] ([facility]) [address] [place] [address] Coding Summaryon 10-07-2023 Coding Summary HTMLBase 64 PuggozhsWFj9oYr+PGhlYWQ +JL9IMLZcO35oiRPlpT4iV8 NMTElOSywgQVBQTElOSyIgb tBiKJ2coBFiGQKp IC8+XZ5rGDBnFbzdvJMfg4U 6nTG6I79ijx6vRHdziVX8DO LpIaUgvlfuc2gpgIk4QCwjP mluOyBt GWLjqM47GFG7tZ13Xd57aEU tkKHcm0vylDv2DbViZIHqHJ G6eVkzSOpvx9DtZSNlY50wm LDjw2V2 UARmpHgxvZNjGpAhiYH1jN8 jYUgginphp4qarlelIul1jy 42nXKyg7P7oRP8S5AhfrQ5K GJvbGQg RuvjjGNNkT8zfmaqz1yiaau fBdOfBDXfIYh6KSf6CNOzaE aqQzPmWW27CYH7OZOifqTcC 2FsLWFs wPqdKfT1p5C5Cu3HU1OFHoh dB7URDIZGCJodqCQ+PC90cj 91V1IdRmusApk1YQKePKL6z NW0mN2p QYYlNPhjt9U0dNG0V9OoiwZ kpt6uz0bbDZXhHHojR06pkE Yhf6C0ZHVyvGY8BMXeuSrbQ iBzaG93 Oyc+WDHgwAytu1EsWfski5g ld3hcaPv0FikzFQSglaPnlX jnMDV4e5PcBr6iWABulOB8y ML9sE4s BcZoEnI2PUrfE703JmTfpNE gSecgV84xU8MhjQM+PHRyPj k4CNFclFkvNJ0gL1UyWWZcb mctbGVm vBocNW9zSCUebwybYUMrsW6 aVQZgE2s3SoJyNlT2CVwjZ6 AhRQMysauzHd65cZ3iJeFeD wD2UMwo X2FpmjX1UEJadIXvJSybBOH 3G45jq0I7IWGtDNQtVGQ0vJ N2tH5hxVuzpogaqMLtyQbrf mVydGlj FNijWLgcF993TZNkqPgpYoP vZGluZyBEYXRlOiAgMDcvMT UvMjAyNDwvdGQ+MWUyTEZ1h WxlPSAn aCEwTUttIx3loExxoWzqNE9 iUFLyzfglQOEpmS2rEXJhiQ VrpGsbXJ3wPOQtzsxwf657Q iAxMHB0 NESldCVkI8LtwA5yOcHaBKF vPILwH3NduHIpHUykJ260SU yjMnZ7VTMitxVzX1TxBNYdr WduOiB0 f4P2Yx6Ag3IklzvvO6XmpOZ cOqPxLjkxCZc4I7CsIfaopP I+DZ66HTJzLP56XFy1FQK0u WxlPSdi IFGuD2WsoW4gJyOePYPiFUA kOyc+PHRhYmxlIHdpZHRoPS idGASiJxEorIkrWX7sYa4xL GVyLWNv fFittYDoVpCwq8waCJGaAEs yCV0lyTjmZ4HxeIN9QNPpu0 j6Ii40P44nY1SabNB+PGNvb ML5xIW3 zD7nOiZdOyB5VPviL128SgR hpTSvQkimn2lck6drxNi5Wi U4ZCVyxdHzjKiuEMV0b7DlU a91H83g IHdpZHRoPSIxNSUiIHZhbGl tsk1lxA7dMy9+ZKVjtJS7fS T0hJ2kYfPcZpA9WXaxR645O nRvcCIv Rcdtc4jla0aiuBt2DbRoYUB zjlEybWcqPCI5n1JxIf15L8 HawFeqz9CsHbv9ze66fLFmq 0P9zBS9 K8NpVMSjqxlfuUPhoSmcBB8 dFTWiyzswVWQgwG6tXEJaB9 d6DbFrTrA0THvxP3WydpA1R GJvbGQg LHUawGJIaX7csnpxy5dqmwj wTeLvOSDvBTq6JXe2VGZqeX kuSfCwAWE5PhD1YKD9hEUij P2ynFus ylyhaW2wBrr+SHE2oQYivDS HQR6uGvzipEC+ADIpWVP5tH hiHTorYFAgmS4aYKNaZ7q4I iAwLjA1 RUolQ8HjazM2MHWlpFBcSHN auGOTiY3rnjjyo9jnarvvWc XbXZTtWIi6QHn6HTFikQnpR iBsZWZ0 EkJ9HAA3vPRkoR3whApmttk kjN0xPhc+PuvyqKimKRU9QT i2G0YwDsd2LRDwfZcfNZ2mm GFkZGlu Xk3utJgraTbiBP4fASMuopm lg764WkPji8zqMSLclWClIV twLMQ3H39jg6Q3LSFwRFNnU YV1jTD3 vJ4ehVksptcdmPEmhNtikhF vqLkvLSerOObqN783BZQfoT kfMrPxOCf6G6KqObr7VURha MmiIJ1d iQRyUMfuQw6ktLeioTgwLL5 cVNAggsygn518JwRhf8ouWB JkwZPbKLygLVR2G62vv2A1R CMwMDAw SSN5jKQ6pT4gaXtpbusvzZJ mdDsgdmVydGljYWwtYWxpZ2 62LKUmbDxiFxBwfXp4Y0RhJ dz7GNPs pIqlXM3jcXViLVsdFu7bnXb ueZjsBQ1uQPNpnzcer382Yx Ncs3giUYSecMDkHFawLTU9R 70zl3D5 DWMtZKWuLHV0gXB5fE4evDk nbjogbGVmdDsgdmVydGljYW qlWHwsL393DSSebPfxSbHke GllbnQg YKtyUXm9I1QhImbfnWN+PC9 8VWLaLM70oUBapTGie6oxlP s8FlAjFGJzCHP2rMrgUOzxu 3JkZXIt T02phGVwt9O1VBPtpEtjvOG wTjUqsIW3gO3gOSjsaocvk5 bvoksjOjjmm3ywzo56gM65K 29sIHdp ZHRoPSIzMCUiIHZhbGlnbj0 vvB2sRu5+PPUpnGW8rPU5mH 0lHKYiYkH0IPunN998XdWmb CIvPjxj w0etb7ligYg8HzV9ZTPyboU ztKufTJI1k6FpHq24V53tWX dpZHRoPSIyMCUiIHZhbGlnb p9iaC6r Ii8+JSJepIQ9hAP3rQ0fVdC dZrU0BZgtS827ZcNndJLyVf brL08oQ4TkmSY+HUJmJqv6P CBzdHls BU4giLAuVDwfBg6cCKE4EaQ uNrGdZXegY9YyPYFmpshkkj kxjBD8UKRfTVOqbQ38Rv8qo DogMTBw tHSZsH2sikdjn7tndiilIxZ kPPCoZIg4FNy6LYUoeKpdEs ZyOAK8DjX0XIT2uVZofJ7bd Glnbjog iN2nP9LhRKPgdrumUm57dA5 eGqXvAjW9RFtnKlx+TElFQi wbQUQUSUJCQLEMGmwPSuE9K 9HtYyt6 FNQmgPpgOS5xrKScQFclWk2 ypNpiwAcmGI6uFAHoqpitST DktH4uULCtoUVabFwwVB9cS TBpbjtm i777BhPlHMV6IIWkfSQkP4I upS5cUoZoCDOoXVUeV1HglI SdMGygI037VRelNmS9YWJii cEzP9Ug QZHosUxaStG4e6Z3Kk3gQz7 fMA5rPGa6GL11XU29hNNwb7 P7uWO9V7WdQPYzrrgsqfiac DP0APAn XQOqlM36mCCvHOwfMc5qd2K 1k737QDLpYHLwxY74Zd8bwJ dcOYJigYTDsY1apaweg9rac jogIzAw CBHvBEa3AKy4MDCnaJlyWjQ fDAD0QfM1UXP0vYWmtT4zwP kfspohkR5nDti+NDYgWWVhc rE7S2Lo Ayt8UUBtxKvsAW8voIXjPVe iHd7jkTpumVteOU4uXRBabv unWUTmvN7uKHWzrMQzrLxbY M4aMFQy fbfxc751RmGiDZR4IPBleNP nN4KjwO8kMrScHSPaVOJgW4 KtrPQeKKobA619VXtcUqS1D HZlcnRp M1FtPYIkaTmtMuW2w3R1Tz2 IUR5UZDK3O8WbTan1WGPnlN vfZX4naNDrWOdfHl9wsOita JjxYB9l MIUecotmTDAywO0kWNOpdXK stWcrTD8jUSLwsiktb715Xc YgUFI3YFErwZHyR3ZxyX3iL iAjMDAw LOPkM1ZhbWAeEAbwM509WVo mGdJ5MPIukhXiA4WqSILffZ cyUzP3e1X4Em0YqEBgQ8EaM 7y8E2Az PjwvdHI+AM74TDHiUL39qIL yqJGoh9hpjFv8YjHfOPZrKR D7rKdtKWudb0PqCLUaI89jt ZQyx4J7 LTImgCdywAFrSjPayTP4xY0 mMSxzrsycq2vzxmtnWvxqt9 zndf23lO72Q08iUUbzUSKgB SIzMCUi VTVgbIjwdc4xvC2cNw4+PGN zxYR8yYE7zV3jSxKoGvT6KP vyI959JxQliIFsCmvwy1qqi 5kphRe1 DeZeGDRcckGtxDxpBKV6q8E hOm04Q13yYEgcVQToEQWmOZ LnDGJpsYwzsb2uwR8fBw3+P A8ne3fw fk60bY64uZM+LCPsTKE3aDi oKZsuVSClsD2yVGrsToC3US OxWeOcjZ63vSEwABriVv4ef WdodDog UI3bWURsdbamy932OaPrw1d aPJHniMXxTAdlENI9O37yf6 Z7UYXdTSIjTNR7pVM8wQ8rp Glnbjog bGVmdDsgdmVydGljYWwtYWx rT816DCJrzNreNyXocUOvA8 dsdyOXOO1tRogaePE+PHRkI OE2aOvo CYpgUOXisE5eTWVtT7p7QvC xYuT3YCvbF5KpvzY7JFTjpJ ApDQNocHAElJ4txrkfv3mdo jogIzAw LGObHFw0NQm6LJPkkHykFwX zOYS5KvD1NHU1pIRyoT1glP cdzmoziO1cPas+RklOOjwvd GQ+PHRk URR4eDjtOYdnEXQprJ6eVDV wC3l4EnSmCiC9IOzjS3Qvuz P5XNQaiXVtCETdaCZNrJ2em zreo3rj mgpbYmXoIUAsXXu8SWa3YMS dvDabApOpUVS8JxC8ZRG7tI OapO8lkXjyabjjaA9sIpr+T VJOOjwv dGQ+YVChZKO5mIdoQTjnTPW epR3kSRQfQ3c2GfYlEtE1DJ xsM7TbedZ9GHAkvCAtERXsv BWGiD0u ullwh2nicxxuJpEhAUYxFKn 9FGs9CCBciAtiKmCuZMK3Aw O6WTP8uFGrvQ0wiBzcsqurm G9wOyc+ NGF1SAO6BV22ZX80R7NkYry vdGFibGU+PHRhYmxlIHdpZH SaWWftAYQxOpRrxOwpWY0fA n2cYATc LWN (more content not included)... Normal [facility] Activated partial thrombopla stin time (aPTT) in platelet poor plasma by coagulation aOrdered By: Abby Jensen on 10-05-2023 aPTT Coag (PPP) [Time] 33.6 s 25.1-36.5 [facility] Comment on above: A hematocrit value g reater than 55% may lead to inaccurate results in coagulation testing. Patients having hematocrit values >55% require a special collection tube for coagulation studies. Please contact the laboratory at [phone] for redraw instructions. Automated basophil %Ordered By: Abby Jensen on 10-05-2023 Basophils/100 WBC (Bld) 0.4 % Normal . [facility] Comment on above: Performed By: #### V BG #### Point of Care testing , Automated basophil countOrde red By: Abby Jensen on 10-05-2023 Basophils (Bld) [#/Vol] 0.0 10*3/uL Normal 0.0-0.2 [facility] Comment on above: Performed By: #### V BG #### Point of Care testing , Automated blood monocyte cou ntOrdered By: Abby Jensen on 10-05-2023 Monocytes (Bld) [#/Vol] 0.7 10*3/uL Normal 0.0-0.8 [facility] Comment on above: Performed By: #### V BG #### Point of Care testing , Automated eosinophil %Ordere d By: Abby Jensen on 07-13-2024 Eosinophils/100 WBC (Bld) 1.0 % Normal . [facility] Comment on above: Performed By: #### V BG #### Point of Care testing , Automated eosinophil countOr dered By: Abby Jensen on 10-05-2023 Eosinophils (Bld) [#/Vol] 0.1 10*3/uL Normal 0.0-0.45 [facility] Comment on above: Performed By: #### V BG #### Point of Care testing , Automated monocyte %Ordered By: Abby Jensen on 10-05-2023 Monocytes/100 WBC (Bld) 6.1 % Normal . [facility] Comment on above: Performed By: #### V BG #### Point of Care testing , Automated neutrophil %Ordere d By: Abby Jensen on 10-05-2023 Neutrophils/100 WBC (Bld) 75.7 % Normal . [facility] Comment on above: Performed By: #### V BG #### Point of Care testing , BNP ser/plasOrdered By: Rick Jensen on 10-05-2023 Natriuretic peptide B (Bld) [Mass/Vol] 70.0 pg/mL Normal 5-100 [facility] Comment on above: Result Comment: PERF ORMED BY: [facility] [address] [place] [address] PATHOLOGIST RING MAKING 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 JASON WILSON M.D. Performed By: #### V BG #### Point of Care testing , Bacteria identifiedon 2023 Bacteria identified Cx Nom (Bld) Test: Blood Culture Specimen Source: Peripheral Venipuncture Specimen Type: Blood culture Specimen Date: 10/05/20232147 Result Date: 10/10/2023 0000 Result Status: Final result Abnormal: No Resulting Lab: [facility] [address] [facility] [address] CULTURE No growth at 4 days - FINAL REPORT Normal [facility] Comment on above: Performed By: #### 5 7021-8 #### SHWETA ROCHA ([id number]) [facility] [address] [place] [address] Bacterial blood cultureOrder ed By: Abby Jensen on 10-05-2023 Bacteria identified Cx Nom (Bld) NO GROWTH 5 DAYS [facility] Basic Metabolic Panelon 09-22 Creatinine Clr Calc Pharmacy 116.62 Normal [facility] Comment on above: Performed By: #### V BG #### Point of Care testing , GFR/1.73 sq M.predicted MDRD (S/P/Bld) [Vol rate/Area] mL/min/{1.73_m2} Normal [facility] Comment on above: Performed By: #### V BG #### Point of Care testing , Bilirubin Test strip Ql (U)O rdered By: Abby Jensen on 10-05-2023 Bilirubin Ql (U) Negative Negative [facility] Blood Cultureon 10-05-2023 Bacteria identified Cx Nom (Bld) NO GROWTH 5 DAYS PERFORMED BY: [place] [address] PATHOLOGIST RING MAKING 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 JASON WILSON M.D. Normal [facility] Comment on above: Performed By: #### C MP, CUBLD, CBC #### [address] Performed By: #### V BG #### Point of Care testing , Blood type and Indirect anti body screen panel (Bld)on 10-05-2023 ABO group Nom (Bld) O Normal [facility] Comment on above: Performed By: #### 5 6888-1 #### JOLENE Cantu ([id number]) [facility] ([facility]) [address] [place] [address] Blood group antibody screen Ql Negative [facility] Comment on above: Performed By: #### 5 6888-1 #### JOLENE Cantu ([id number]) [facility] ([facility]) [address] [place] [address] 11377 D Ag Ql (Bld) Positive [facility] Comment on above: Performed By: #### 5 6888-1 #### JOLENE Cantu ([id number]) [facility] ([facility]) [address] [place] [address] C reactive proteinon 024 CRP [Mass/Vol] 0.98 mg/dL Normal <1.00 [facility] Comment on above: Performed By: #### 5 7021-8 #### SHWETA ROCHA ([id number]) [facility] ([facility]) [address] [place] [address] C reactive protein [Mass/vol ume] in Serum or PlasmaOrdered By: Abby Jensen on 10-05-2023 CRP [Mass/Vol] 1.0 mg/dL High 0.0-0.5 [facility] C-Reactive Proteinon 024 C-Reactive Protein 1.0 mg/dL High 0.0-0.5 [facility] Comment on above: Result Comment: PERF ORMED BY: [facility] [address] [place] [address] PATHOLOGIST RING MAKING 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 JASON WILSON M.D. Performed By: #### V BG #### Point of Care testing , CBC panel Auto (Bld)on 10-04 Erythrocyte distribution width (RBC) [Ratio] 12.4 % Normal 11.5-14.5 [facility] Comment on above: Performed By: #### 5 7021-8 #### SHWETA ROCHA ([id number]) [facility] ([facility]) [address] [place] [address] Hematocrit (Bld) [Volume fraction] 36.3 % Normal 36.0-46.0 [facility] Comment on above: Performed By: #### 5 7021-8 #### SHWETA ROCHA ([id number]) [facility] ([facility]) [address] [place] [address] Hemoglobin (Bld) [Mass/Vol] 12.5 g/dL Normal 12.0-16.0 [facility] Comment on above: Performed By: #### 5 7021-8 #### SHWETA ROCHA ([id number]) [facility] ([facility]) [address] [place] [address] MCH (RBC) [Entitic mass] 30.4 pg Normal 26.0-34.0 [facility] Comment on above: Performed By: #### 5 7021-8 #### SHWETA ROCHA ([id number]) [facility]) [address] [place] [address] 41533 MCHC (RBC) [Mass/Vol] 34.4 g/dL Normal 32.0-36.0 [facility] Comment on above: Performed By: #### 5 7021-8 #### SHWETA ROCHA ([id number]) [facility]) [address] [place] [address] 35478 MCV (RBC) [Entitic vol] 88 fL Normal 80-100 [facility] Comment on above: Performed By: #### 5 7021-8 #### SHWETA ROCHA ([id number]) [facility]) [address] [place] [address] 32878 Nucleated RBC/100 WBC (Bld) [Ratio] 0.0 /100 WBCs Normal 0.0-0.0 [facility] Comment on above: Performed By: #### 5 7021-8 #### SHWETA ROCHA ([id number]) [facility]) [address] [place] [address] Platelets (Bld) [#/Vol] 422 x10*3/uL Normal 150-450 [facility] Comment on above: Performed By: #### 5 7021-8 #### SHWETA ROCHA ([id number]) [facility]) [address] [place] [address] 52542 RBC (Bld) [#/Vol] 4.11 x10*6/uL Normal 4.00-5.20 [facility] Comment on above: Performed By: #### 5 7021-8 #### SHWETA ROCHA ([id number]) [facility]) [address] [place] [address] WBC (Bld) [#/Vol] 10.1 x10*3/uL Normal 4.4-11.3 [facility] Comment on above: Performed By: #### 5 7021-8 #### SHWETA ORCHA ([id number]) [facility]) [address] [place] [address] CT abdomen pelvis w conon CT abdomen pelvis w con [facility] [place] [address] [place] [address] CT Scan Report Signed Patient: Jerad Tracy MR#: [id number] 49 : 1975 Acct:[id number] Age/Sex: 48 / F ADM Date: 10/05/23 Loc: ER Room: Type: [facility] ER Attending Dr: Copies to: Abby Jensen MD Ordering Provider: Abby Jensen MD Date of Service: 10/05/23 CT/CT abdomen [...] Yoan Ma M.D.10/05/2023 6:57 PM Dictation Location: [place] [address] Transcribed By: [facility] 10/05/231856 Dictated By: Yoan Ma II, MD 10/05/231848 Signed By: 10/05/231856 Normal [facility] Calcium [Mass/volume] in Ser um or PlasmaOrdered By: Abby Jensen on 10-05-2023 Calcium [Mass/Vol] 8.8 mg/dL Normal 8.6-10.3 [facility] Comment on above: Performed By: #### V BG #### Point of Care testing , Carbon dioxide, total [Moles /volume] in Serum or PlasmaOrdered By: Abby Jensen on 10-05-2023 CO2 [Moles/Vol] 26.0 mmol/L Normal 21.0-31.0 [facility] Comment on above: Performed By: #### V BG #### Point of Care testing , Chloride [Moles/volume] in S saw or PlasmaOrdered By: Abby Jensen on 10-05-2023 Chloride [Moles/Vol] 105 mmol/L Normal 98-107 [facility] Comment on above: Performed By: #### V BG #### Point of Care testing , Color of Urine by AutoOrdere d By: Abby Jensen on 10-05-2023 Color (U) Light-yellow Normal Yellow [facility] Comment on above: Order Comment: Name Collection Type:: Clean-Voided Midstream Performed By: #### C MP, CUBLD, CBC #### [facility] [address] Complete Blood Count Auto Di ffon 10-05-2023 Mean Corpuscular HGB Conc 33.9 g/dL Normal 32.0-35.0 [facility] Comment on above: Performed By: #### V BG #### Point of Care testing , Monocytes/100 WBC (Bld) 16.83 % Normal 0.00-20.00 [facility] Comment on above: Performed By: #### V BG #### Point of Care testing , NRBC% 0.1 /100{WBC} Normal 0-0.5 [facility] Comment on above: Performed By: #### V BG #### Point of Care testing , Creatine kinase [Enzymatic a ctivity/volume] in Serum or PlasmaOrdered By: Abby Jensen on 10-05-2023 CK [Catalytic activity/Vol] 49 U/L Normal 30-223 [facility] Comment on above: Performed By: #### V BG #### Point of Care testing , Creatinine [Mass/volume] in Serum or PlasmaOrdered By: Abby Jensen on 10-05-2023 Creatinine [Mass/Vol] 0.75 mg/dL Normal 0.60-1.20 [facility] Comment on above: Performed By: #### V BG #### Point of Care testing , ECG 12 lead ECGon 10-05-2023 ECG 12 lead ECG [facility] [address] [place] [address] Electrocardiograph Report Signed Patient: Jerad Tracy MR#: [id number] 49 : 1975 Acct:[id number] Age/Sex: 48 / F ADM Date: 10/05/23 Loc: ER Room: Type: [facility] ER Attending Dr: Ordering Provider: Abby Jensen MD Date of Service: 10/05/23 ECG/ECG 12 [...] significant change was found Confirmed by Abby Jensen MD ([id number]) on 10/05/2023 10:15:52 PM Referred By: Electronically Signed By: Abby Jensen MD Transcribed By: MUS Signed By Abby Jensen MD 09/22 06/15 6996 Normal [facility] ED Clinical Summaryon 2023 ED Clinical Summary [facility] Emergency Department [address] [place] [address] ED Clinical Summary PERSON INFORMATION Name: JERAD TRACY Age: 48 Years Sex: FEMALE : 1975 MRN: Acct#: Visit Reason: Post surgical problem; SKIN PROBLEM-BACK Arrival: 10/05/2023 11:20:01 Discharge: 10/05/2023 12:04:00 LOS: 000 00:44 Check In: 10/05/2023 11:20:01 Checkout:10/05/2023 12:04:00 Address: [address] [place] [address] PCP: Cheyanne Mckeon PROVIDER INFORMATION Provider Role Assigned Unassigned Susu Lamar PA-C ED PA 10/05/2023 11:21:33 Niki Reyes CARGOMAN Nurse 10/05/2023 11:33:03 VITALS INFORMATION Vital Sign Triage Latest Temperature Tympanic Temperature Temporal Artery Pulse Rate O2 Sat 97 % 97 % Respiratory Rate 16 br/min 16 br/min Blood Pressure /65 mmHg /65 mmHg MEDICAL INFORMATION Medications Given: Allergy Information: HYDROcodone; penicillin PHYSICIAN DOCUMENTATION DISCHARGE INFORMATION: Discharge Disposition: Home Discharge Location: Home PATIENT EDUCATION INFORMATION Instructions: Wound Dehiscence, [place] Follow-Up: With: Address: When: [place] [facility] [address] [place], [place] [phone] Within 3 to 5 days Comments: Call for follow up appointment With: Address: When: Cheyanne Mckeon [address] [place] [address] [place] [address] Within 3 to 5 days Comments: keep appt with surgeon in 3 days DIAGNOSIS: 1:Dehiscence of incision Patient Understands: Yes - Patient/family/caregive r verbalizes understanding of instructions given Comment: [facility] ED Note-Physicianon 10-05-19 ED Note-Physician [facility] Comment on above: Result Comment: Elec tronically Signed By: Landon Tidwell PA-C\.br\Date and Time Signed: 10/04/23 17:18 EDT\.br\Electronically Co-Signed By: Jorge Mcintosh DO\.br\Date and Time Co-Signed: 10/05/23 07:28 EDT ED Patient Summaryon 024 ED Patient Summary [facility] - Emergency Department [address] [place] [address] PATIENT DISCHARGE INSTRUCTIONS Patient Information Name: JERAD TRACY Age: 48 Years Date of : 1975 Reason For Visit: Post surgical problem; SKIN PROBLEM-BACK Arrival Time: 10/05/2023 11:20:01 Primary Care Physician: Cheyanne Mckeon Attending Physician: Raj Ayers MD Comment: Visit Diagnosis: Diagnoses This Visit Dehiscence of incision (T81.31XA) Post surgical problem ([id number]) The Pharmacy at [facility] is open Saturday through Saturday from 9A [...] contact the [facility] [place] 15/10 Crisis Hotline -Text 4HZQP yz 409561. If you received any narcotics, sedation, or [...] sign any legal documents With: Address: When: [facility] [address] [place] [phone] Within 3 to 5 days Comments: Call for follow up appointment With: Address: When: Cheyanne Mckeon [facility] [place] [address] Within 3 to 5 days Comments: keep appt with surgeon in 3 days Medication Information: The exam and treatment you received today in the [facility] Emergency Department were for an urgent problem and are not intended as complete care. It is important for you to follow up with a doctor, nurse practitioner, or physician?s per diem physical therapist assistant for ongoing care. If your symptoms become [...] so we can reach you if necessary. [facility] Emergency Department has provided you with a complete list of medications post discharge. Please inform your furnace attendant/provider of your visit and for further instruction on these medications. Any specific questions regarding your chronic medications and dosages should be discussed with your primary care physician(s) and/or pharmacist. New Medications [facility] [place], [place] [id number], [phone] doxycycline (doxycycline hyclate 100 mg oral capsule) [...] causes? C (more content not included)... Normal [facility] ESR Westergren method (Bld) [Velocity]on 10-05-2023 ESR (Bld) [Velocity] 35 mm/h High 0-20 [facility] Comment on above: Performed By: #### 5 [id number] #### SHWETA ROCHA ([id number]) [facility] ([facility]) [address] [place] [address] Erythrocyte Sedimentation Ra karen 10-05-2023 ESR (Bld) [Velocity] 58 mm/h High 0-19 [facility] Comment on above: Result Comment: PERF ORMED BY: [facility] [address] [place] [address] PATHOLOGIST RING MAKING 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 JASON WILSON M.D. Performed By: #### V BG #### Point of Care testing , Erythrocyte distribution wid th [Ratio] by Automated countOrdered By: Abby Jensen on 10-05-2023 Erythrocyte distribution width (RBC) [Ratio] 13.2 % Normal 11.9-15.3 [facility] Comment on above: Performed By: #### V BG #### Point of Care testing , Erythrocyte sedimentation ra te by Photometric methodOrdered By: Abby Jensen on 10-05-2023 ESR Photometric method (Bld) [Velocity] 58 mm/hr High 0-19 [facility] Erythrocytes [#/volume] in B lood by Automated countOrdered By: Abby Jensen on 10-05-2023 RBC (Bld) [#/Vol] 4.32 10*6/uL Normal 3.60-5.00 [facility] Comment on above: Performed By: #### V BG #### Point of Care testing , Glucose [Mass/volume] in Ser um or PlasmaOrdered By: Abby Jensen on 10-05-2023 Glucose [Mass/Vol] 95 mg/dL Normal 70-100 [facility] Comment on above: ADA recommended refe rence rangeRandom Glucose Reference Range is dependent on time and content of last meal. Glucose of more than 200 mg/dL in a nonstressed, ambulatory subject supports the diagnosis of Diabetes Mellitus. Result Comment: Kersey om Glucose Reference Range is dependent on time and content of last meal. Glucose of more than 200 mg/dL in a nonstressed, ambulatory subject supports the diagnosis of Diabetes Mellitus. ADA recommended reference range Performed By: #### V BG #### Point of Care testing , Glucose [Mass/volume] in Uri ne by Test stripOrdered By: Abby Jensen on 10-05-2023 Glucose Test strip (U) [Mass/Vol] Normal mg/dL Normal [facility] Hematocrit [Volume Fraction] of Blood by Automated countOrdered By: Abby Jensen on 10-05-2023 Hematocrit (Bld) [Volume fraction] 40.4 % Normal 34.0-46.4 [facility] Comment on above: Performed By: #### V BG #### Point of Care testing , Hemoglobin Test strip Ql (U) Ordered By: Abby Jensen on 10-05-2023 Hemoglobin Ql (U) Negative Negative [facility] Hemoglobin [Mass/volume] in BloodOrdered By: Abby Jensen on 10-05-2023 Hemoglobin (Bld) [Mass/Vol] 13.7 g/dL Normal 11.8-15.4 [facility] Comment on above: Performed By: #### V BG #### Point of Care testing , INR in Platelet poor plasma by Coagulation assayOrdered By: Abby Jensen on 10-05-2023 INR Coag (PPP) [Relative time] 1.0 {INR} Normal [facility] Comment on above: INR Therapeutic Rang [...] valves: 3 - 4.5 Performed By: #### V BG #### Point of Care testing , Ketones [Presence] in Urine by Test stripOrdered By: Abby Jensen on 10-05-2023 Ketones Ql (U) Negative Normal Negative [facility] Comment on above: Order Comment: Name Collection Type:: Clean-Voided Midstream Performed By: #### C MPDEYVI, CBC #### [facility] [address] Lactate [Moles/volume] in Se rum or PlasmaOrdered By: Abby Jensen on 10-05-2023 Lactate [Moles/Vol] 0.6 mmol/L Normal 0.5-2.2 [facility] Comment on above: Result Comment: PERF ORMED BY: [place] [address] PATHOLOGIST RING MAKING 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 JASON WILSON M.D. Performed By: #### U HCG, ADDONUAPLUS #### [facility] [address] Leukocyte esterase [Presence ] in Urine by Test stripOrdered By: Abby Jensen on 10-05-2023 Leukocyte esterase Test strip Ql (U) Negative Normal Negative [facility] Comment on above: Order Comment: Name Collection Type:: Clean-Voided Midstream Performed By: #### C MP, CUBLD, CBC #### [facility] [address] Leukocytes [#/volume] correc lisa for nucleated erythrocytes in Blood by Automated counOrdered By: Abby Jensen on 10-05-2023 WBC corrected for nucl RBC Auto (Bld) [#/Vol] 12.3 10*3/uL High 3.8-11.6 [facility] Leukocytes [#/volume] in Blo od by Automated countOrdered By: Abby Jensen on 10-05-2023 WBC (Bld) [#/Vol] 12.3 10*3/uL High 3.8-11.6 [facility] Comment on above: Performed By: #### V BG #### Point of Care testing , Lymphocytes [#/volume] in Bl ood by Automated countOrdered By: Abby Jensen on 10-05-2023 Lymphocytes (Bld) [#/Vol] 2.1 10*3/uL Normal 1.00-4.8 [facility] Comment on above: Performed By: #### V BG #### Point of Care testing , Lymphocytes/100 leukocytes i n Blood by Automated countOrdered By: Abby Jensen on 10-05-2023 Lymphocytes/100 WBC (Bld) 16.8 % Normal . [facility] Comment on above: Performed By: #### V BG #### Point of Care testing , MCH [Entitic mass] by Automa lisa countOrdered By: Abby Jensen on 10-05-2023 MCH (RBC) [Entitic mass] 31.8 pg Normal 24.7-34.3 [facility] Comment on above: Performed By: #### V BG #### Point of Care testing , MCHC Auto (RBC) [Mass/Vol]Or dered By: Abby Jensen on 10-05-2023 MCHC (RBC) [Mass/Vol] 33.9 g/dL 32.0-35.0 [facility] MCV [Entitic volume] by Auto mated countOrdered By: Abby Jensen on 10-05-2023 MCV (RBC) [Entitic vol] 93.6 fL Normal 80-100 [facility] Comment on above: Performed By: #### V BG #### Point of Care testing , Monocyte distribution width [Entitic volume] in Blood by AutomatedOrdered By: Abby Jensen on 10-05-2023 Monocyte distribution width Auto (Bld) [Entitic vol] 16.83 % 0.00-20.00 [facility] Neutrophils [#/volume] in Bl ood by Automated countOrdered By: Abby Jensen on 10-05-2023 Neutrophils (Bld) [#/Vol] 9.3 10*3/uL High 1.8-7.7 [facility] Comment on above: Performed By: #### V BG #### Point of Care testing , Nitrite Test strip Ql (U)Ord ered By: Abby Jensen on 10-05-2023 Nitrite Ql (U) Negative Negative [facility] No Panel InformationOrdered By: Abby Jensen on 10-05-2023 Estimated GFR (CKD-EPI) > 60.0 mL/Min [facility] Creatinine Clearance (Chem 116.62 [facility] Nucleated erythrocytes [Pres ence] in Blood by Automated countOrdered By: Abby Jensen on 10-05-2023 Nucleated RBC Auto Ql (Bld) 0.1 /100{WBC} 0-0.5 [facility] PT and aPTT panel Coag (PPP) on 10-05-2023 aPTT Coag (PPP) [Time] 33 s Normal 27-38 [facility] Comment on above: Order Comment: The A PTT is no longer used for monitoring Unfractionated Heparin Therapy. For monitoring Heparin Therapy, use the Heparin Assay. Performed By: #### 5 7021-8 #### SHWETA ERICKA MIRANDA KEY ([id number]) [facility] ([facility]) [address] [place] [address]77 INR Coag (PPP) [Relative time] 1.0 Normal 0.9-1.1 [facility] Comment on above: Order Comment: The A PTT is no longer used for monitoring Unfractionated Heparin Therapy. For monitoring Heparin Therapy, use the Heparin Assay. Performed By: #### 5 7021-8 #### SHWETA ADAMA KEY ([id number]) [facility] ([facility]) [address] [place] [address] 35960 PT Coag (PPP) [Time] 11.3 s Normal 9.8-12.8 [facility] Comment on above: Order Comment: The A PTT is no longer used for monitoring Unfractionated Heparin Therapy. For monitoring Heparin Therapy, use the Heparin Assay. Performed By: #### 5 7021-8 #### SHWETA ERICKA MIRANDA KEY ([id number]) [facility] ([facility]) [address] [place] [address] 34179 Partial Thromboplastin Timeo n 10-05-2023 aPTT Coag (Bld) [Time] 33.6 s Normal 25.1-36.5 [facility] Comment on above: Result Comment: A he matocrit value greater than 55% may lead to inaccurate results in coagulation testing. Patients having hematocrit values >55% require a special collection tube for coagulation studies. Please contact the laboratory at [phone] for redraw instructions. PERFORMED BY: [facility] [address] [place] [address] PATHOLOGIST RING MAKING 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 JASON WILSON M.D. Performed By: #### V BG #### Point of Care testing , Platelet mean volume [Entiti c volume] in Blood by Automated countOrdered By: Abby Jensen on 10-05-2023 Platelet mean volume (Bld) [Entitic vol] 7.5 fL Normal 6.3-10.7 [facility] Comment on above: Performed By: #### V BG #### Point of Care testing , Platelets [#/volume] in Bloo d by Automated countOrdered By: Abby Jensen on 10-05-2023 Platelets (Bld) [#/Vol] 464 10*3/uL High 150-450 [facility] Comment on above: Performed By: #### V BG #### Point of Care testing , Potassium [Moles/volume] in Serum or PlasmaOrdered By: Abby Jensen on 10-05-2023 Potassium [Moles/Vol] 4.0 mmol/L Normal 3.5-5.1 [facility] Comment on above: Performed By: #### V BG #### Point of Care testing , Protein Test strip (U) [Mass /Vol]Ordered By: Abby Jensen on 10-05-2023 Protein (U) [Mass/Vol] Negative Negative [facility] Prothrombin time (PT)Ordered By: Abby Jensen on 10-05-2023 PT Coag (PPP) [Time] 12.0 s Normal 9.0-12.9 [facility] Comment on above: A hematocrit value g reater than 55% may lead to inaccurate results in coagulation testing. Patients having hematocrit values >55% require a special collection tube for coagulation studies. Please contact the laboratory at [phone] for redraw instructions. Result Comment: A he matocrit value greater than 55% may lead to inaccurate results in coagulation testing. Patients having hematocrit values >55% require a special collection tube for coagulation studies. Please contact the laboratory at [phone] for redraw instructions. Performed By: #### V BG #### Point of Care testing , Renal function 2000 panelon 10-05-2023 Albumin BCP dye [Mass/Vol] 3.9 g/dL Normal 3.4-5.0 [facility] Comment on above: Performed By: #### 5 7021-8 #### SHWETA ROCHA ([id number]) [facility] ([facility]) [address] [place] [address]159 Anion gap [Moles/Vol] 13 mmol/L Normal 10-20 [facility] Comment on above: Performed By: #### 5 7021-8 #### SHWETA ROCHA ([id number]) [facility] ([facility]) [address] [place] [address] Calcium [Mass/Vol] 8.6 mg/dL Normal 8.6-10.6 [facility] Comment on above: Performed By: #### 5 7021-8 #### SHWETA ROCHA ([id number]) [facility] ([facility]) [address] [place] [address]459 Chloride [Moles/Vol] 105 mmol/L Normal 98-107 [facility] Comment on above: Performed By: #### 5 7021-8 #### SHWETA ROCHA ([id number]) [facility] ([facility]) [address] [place] [address] 94156 CO2 [Moles/Vol] 24 mmol/L Normal 21-32 [facility] Comment on above: Performed By: #### 5 7021-8 #### SHWETA ROCHA ([id number]) [facility]) [address] [place] [address] Creatinine [Mass/Vol] 0.68 mg/dL Normal 0.50-1.05 [facility] Comment on above: Performed By: #### 5 7021-8 #### SHWETA ROCHA ([id number]) [facility] ([facility]) [address] [place] [address]156 GFR/1.73 sq M.predicted MDRD (S/P/Bld) [Vol rate/Area] mL/min/{1.73_m2} Normal >60 [facility] Comment on above: Result Comment: Calc ulations of estimated GFR are performed using the 2020 CKD-EPI Study Refit equation without the race variable for the IDMS-Traceable creatinine methods. https://jasn.asnjournals.org/content//ASN.67588 56619 Performed By: #### 5 7021-8 #### SHWETA ROCHA ([id number]) [facility] ([facility]) [address] [place] [address]41 Glucose [Mass/Vol] 94 mg/dL Normal 74-99 [facility] Comment on above: Performed By: #### 5 7021-8 #### SHWETA BARNETT RIO KEY ([id number]) [facility] ([facility]) [address] [place] [address] 12835 Phosphate [Mass/Vol] 2.8 mg/dL Normal 2.5-4.9 [facility] Comment on above: Result Comment: The performance characteristics of phosphorus testing in heparinized plasma have been validated by the individual laboratory site where testing is performed. Testing on heparinized plasma is not approved by the FDA; however, such approval is not necessary. Performed By: #### 5 7021-8 #### SHWETA ROCHA ([id number]) [facility] ([facility]) [address] [place] [address] Potassium [Moles/Vol] 3.9 mmol/L Normal 3.5-5.3 [facility] Comment on above: Performed By: #### 5 7021-8 #### SHWETA ROCHA ([id number]) [facility]) [address] [place] [address] 15526 Sodium [Moles/Vol] 138 mmol/L Normal 136-145 [facility] Comment on above: Performed By: #### 5 7021-8 #### SHWETA ROCHA ([id number]) [facility] ([facility]) [address] [place] [address] 27600 Urea nitrogen [Mass/Vol] 10 mg/dL Normal 6-23 [facility] Comment on above: Performed By: #### 5 7021-8 #### SHWETA BARNETT RUBEN MACKEY ([id number]) [facility] ([facility]) [address] [place] [address] 35162 Serum or plasma anion gap de terminationOrdered By: Abby Jensen on 10-05-2023 Anion gap [Moles/Vol] 11.0 mmol/L Normal 6.0-15.0 [facility] Comment on above: Performed By: #### V BG #### Point of Care testing , Sodium [Moles/volume] in Ser um or PlasmaOrdered By: Abby Jensen on 10-05-2023 Sodium [Moles/Vol] 138 mmol/L Normal 136-145 [facility] Comment on above: Performed By: #### V BG #### Point of Care testing , Specific gravity Test strip (U) [Rel density]Ordered By: Abby Jensen on 10-05-2023 Specific gravity (U) [Rel density] 1.018 1.001-1.030 [facility] Troponin I High Sensitivityo n 10-05-2023 Troponin I High Sensitivity 2.6 pg/mL Normal 0.0-15.0 [facility] Comment on above: Result Comment: PERF ORMED BY: [place] [address] PATHOLOGIST RING MAKING 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 JASON WILSON M.D. Performed By: #### V BG #### Point of Care testing , Troponin I.cardiac [Mass/vol ume] in Serum or Plasma by Detection limit <= 0.01 ng/Ordered By: Abby Jensen on 10-05-2023 Troponin I.cardiac DL <= 0.01 ng/mL [Mass/Vol] 2.6 pg/mL 0.0-15.0 [facility] Urea nitrogen [Mass/volume] in Serum or PlasmaOrdered By: Abby Jensen on 10-05-2023 Urea nitrogen [Mass/Vol] 12 mg/dL Normal 7-25 [facility] Comment on above: Performed By: #### V BG #### Point of Care testing , Urinalysison 10-05-2023 Bilirubin,Urine Negative Normal Negative [facility] Comment on above: Order Comment: Name Collection Type:: Clean-Voided Midstream Performed By: #### C MP, CUBLD, CBC #### [address] Glucose Ql (U) Normal Normal Normal [facility] Comment on above: Order Comment: Name Collection Type:: Clean-Voided Midstream Performed By: #### C MP, CUBLD, CBC #### [place] [address] [place] Nitrite,Urine Negative Normal Negative [facility] Comment on above: Order Comment: Name Collection Type:: Clean-Voided Midstream Performed By: #### C MP, CUBLD, CBC #### [place] [id number] [place] Occult Blood,Urine Negative Normal Negative [facility] Comment on above: Order Comment: Name Collection Type:: Clean-Voided Midstream Result Comment: PERF ORMED BY: [place] [address] PATHOLOGIST RING MAKING 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 JASON WILSON M.D. Performed By: #### C MP, CUBLD, CBC #### [place] [address] [place] Protein,Urine Negative Normal Negative [facility] Comment on above: Order Comment: Name Collection Type:: Clean-Voided Midstream Performed By: #### C MP, CUBLD, CBC #### [place] [address] [place] Specificy [place],Urine 1.018 Normal 1.001-1.030 [facility] Comment on above: Order Comment: Name Collection Type:: Clean-Voided Midstream Performed By: #### C MP, CUBLD, CBC #### [address] Urobilinogen,Urine Normal Normal Normal [facility] Comment on above: Order Comment: Name Collection Type:: Clean-Voided Midstream Performed By: #### C MP, CUBLD, CBC #### [address] Urine Cultureon 10-05-2023 Bacteria identified Cx Nom (U) >100,000 colonies/ml mixed bacterial skin contaminants 2 Days PERFORMED BY: [place] [address] PATHOLOGIST RING MAKING 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 JASON WILSON M.D. Normal [facility] Comment on above: Performed By: #### C MP, CUBLD, CBC #### [facility] [address] [place] [id number] [facility] Urine appearanceOrdered By: Abby Jensen on 10-05-2023 Appearance (U) Clear Normal Clear [facility] Comment on above: Order Comment: Name Collection Type:: Clean-Voided Midstream Performed By: #### C DEYVI PARKINSON, CBC #### [facility] [address] [place] [address] Urine culture routineOrdered By: Abby Jensen on 10-05-2023 Bacteria identified Cx Nom (U) 2 Days [facility] Urobilinogen Test strip (U) [Mass/Vol]Ordered By: Abby Jensen on 10-05-2023 Urobilinogen (U) [Mass/Vol] Normal mg/dL Normal [facility] XR chest 2V*on 10-05-2023 XR chest 2V* [facility] [place] [address] [place] [address] XRay Report Signed Patient: Jerad Tracy MR#: [id number] 49 : 1975 Acct:[id number] Age/Sex: 48 / F ADM Date: 10/05/23 Loc: ER Room: Type: [facility] ER Attending Dr: Copies to: Abby Jensen MD Ordering Provider: Abby Jensen MD Date of Service: 10/05/23 XR/XR chest [...] vertebral body segment. Impression dictated by: Yoan aM M.D.10/05/2023 6:49 PM Dictation Location: [place] [address] Transcribed By: [facility] 10/05/231848 Dictated By: Yoan Ma II, MD 10/05/231847 Signed By: 10/05/231848 Normal [facility] pH of Urine by Test stripOrd ered By: Abby Jensen on 10-05-2023 pH (U) 7.5 [pH] Normal 5.0-9.0 [facility] Comment on above: Order Comment: Name Collection Type:: Clean-Voided Midstream Performed By: #### C MP, CUBLD, CBC #### [facility] [address] [place] [address] ED Clinical Summaryon 2023 ED Clinical Summary Normal [facility] ED Patient Education Noteon 10-04-2023 ED Patient Education Note Normal [facility] ED Patient Summaryon ED Patient Summary Normal [facility] ED Clinical Summaryon 2023 ED Clinical Summary [facility] Emergency Department [address] [place] [address] ED Clinical Summary PERSON INFORMATION Name: JERAD TRACY Age: 48 Years Sex: FEMALE : 1975 MRN: Acct#: Visit Reason: Surgical problem reevaluation; SKIN PROBLEM-BACK Arrival: 09/26/2023 11:09:47 Discharge: 09/26/2023 12:04:00 LOS: 000 00:55 Check In: 09/26/2023 11:09:47 Checkout:09/26/2023 12:04:00 Address: [address] [place] [address] PCP: Cheyanne Mckeon PROVIDER INFORMATION Provider Role [...] PATIENT EDUCATION INFORMATION Instructions: Pain Medicine Instructions, [id number]; Wound Infection, [id number]-va-Uvwx; Acute Pain, Adult Follow-Up: With: Address: When: [...] concerns you. With: Address: When: Cheyanne Rosas [address] [place] [address] [place] [address] [facility] () Within 3 to 5 days DIAGNOSIS: Acute post-operative pain; Infected surgical wound Patient Understands: Yes - Patient/family/caregive r verbalizes understanding of instructions given Comment: [place] [facility] ED Note - Physicianon 2023 ED [...] a electro stimulator placed. Unable to reach business integration analyst surgeon. . History of Present Illness The patient presents with wound infection. The onset was 2 days ago. 48-year-old female presented to ER for evaluation of pain at the lower back area. Patient stated that she had a stimulator placed on Saturday. Stated that it was done at [facility]. Stated that she had been prescribed [...] been prescribed Bactrim and Keflex at the [facility] in [facility]. Apparently was called in yesterday. She [...] mg, Or (more content not included)... Normal [facility] ED Patient Summaryon 024 ED Patient Summary [facility] - Emergency Department [address] [place] [address] PATIENT DISCHARGE INSTRUCTIONS Patient Information Name: JERAD TRACY Age: 48 Years Date of : 1975 Reason For Visit: Surgical problem reevaluation; SKIN PROBLEM-BACK Arrival Time: 09/26/2023 11:09:47 Primary Care Physician: Cheyanne Mckeon Attending Physician: Daryl Cullen MD Comment: Visit Diagnosis: Diagnoses This Visit Acute post-operative pain (G89.18) Infected surgical wound (T81.49XA) Surgical problem reevaluation ([id number]) The Pharmacy at [facility] is open Saturday through Saturday from 9A [...] alcohol and/or drug addiction problems; contact the [facility] 15/10 Crisis Hotline -Text 2ZDQF to 177689. If you received any narcotics, sedation, or [...] concerns you. With: Address: When: Cheyanne Rosas [address] [place] [address], [address] [place] [id number] Business (1) Within 3 to 5 days Medication Information: The exam and treatment you received today in the [facility] Emergency Department were for an urgent problem and are not intended as complete care. It is important for you to follow up with a doctor, nurse practitioner, or physician?s per diem physical therapist assistant for ongoing care. If your symptoms become [...] so we can reach you if necessary. [facility] Emergency Department has provided you with a complete list of medications post discharge. Please inform your furnace attendant/provider of your visit and for further instruction on these medications. Any specific questions regarding your chronic medications and dosages should be discussed with your primary care physician(s) and/or pharmacist. New Medications [facility] [address] [place], [place] [id number], [phone] acetaminophen-oxycodone (acetaminophen-oxycodon e 325 mg-5 mg oral [...] Weight Dosin.40 (more content not included)... Normal [facility] CT Spine Lumbar w/o Contrast on 09-25-2023 CT Spine Lumbar w/o Contrast Normal [facility] ED Clinical Summaryon 2023 ED Clinical Summary Normal [facility] ED Note-Physicianon 09-25-19 ED Note-Physician Normal [facility] Comment on above: Result Comment: Elec tronically Signed By: Landon Tidwell PA-C\.br\Date and Time Signed: 09/25/23 15:17 EDT\.br\Electronically Co-Signed By: Balbina Bryant M.D.\.br\Date and Time Co-Signed: 09/25/23 15:18 EDT ED Patient Education Noteon 09-25-2023 ED Patient Education Note Normal [facility] ED Patient Summaryon ED Patient Summary Normal [facility] FL FLUORO IMAGES NO CHARGEon 09-23-2023 FL FLUORO IMAGES NO CHARGE These images are not reportable by radiology and will not be interpreted by Radiologists. Normal [facility] ED Clinical Summaryon 2023 ED Clinical Summary Normal [facility] ED Note-Physicianon 09-21-19 ED Note-Physician Normal [facility] Comment on above: Result Comment: Elec tronically Signed By: Kristie Boss PA-C\.br\Date and Time Signed: 09/21/23 15:14 EDT\.br\Electronically Co-Signed By: Nikhil Tubbs DO.br\Date and Time Co-Signed: 09/21/23 15:21 EDT ED Patient Education Noteon 09-21-2023 ED Patient Education Note Normal [facility] ED Patient Summaryon 024 ED Patient Summary Normal [facility] ED Clinical Summaryon 2023 ED Clinical Summary Normal [facility] ED Note-Physicianon 09-20-19 ED Note-Physician Normal [facility] Comment on above: Result Comment: Elec tronically Signed By: Robert Taylor PA-C\.br\Date and Time Signed: 09/20/23 11:16 EDT\.br\Electronically Co-Signed By: Jorge Mcintosh DO\.br\Date and Time Co-Signed: 09/20/23 18:45 EDT ED Patient Education Noteon 09-20-2023 ED Patient Education Note Normal [facility] ED Patient Summaryon 024 ED Patient Summary Normal [facility] XR SACRUM COCCYX 2+ VIEWSon 09-19-2023 XR SACRUM COCCYX 2+ VIEWS Interpreted By: Susie Brennan, STUDY: XR SACRUM COCCYX 2+ VIEWS; 09/19/2023 1:13 pm INDICATION: Signs/Symptoms:fall. COMPARISON: None. ACCESSION NUMBER(S): [id number] ORDERING CLINICIAN: GERMAINE DIAZ FINDINGS: Three views [...] Susie Brennan 09/19/2023 1:41 PM Dictation workstation: [id number] Normal [facility] Family Medicine Office/Clini c Noteon 09-17-2023 Family Medicine Office/Clinic Note Normal [facility] Comment on above: Result Comment: Elec tronically Signed By: Dax Lira PA-C\.br\Date and Time Signed: 09/17/23 18:07 EDT Patient Educationon 09-17-19 24 Patient Education Normal [facility] HCV RNA panel LINDSEY+probeon HCV RNA LINDSEY+probe [Log units/Vol] Normal [facility] Comment on above: Order [...] the [facility] Diagnostic Laboratory, Department of Pathology, [facility]. Result Comment: Not calculated Performed By: #### 5 7021-8 #### SHWETA ROCHA ([id number]) [facility] ([facility]) [address] [place] [address] HCV RNA LINDSEY+probe Qn Not detected Normal Not detected [facility] Comment on above: Order Comment: Repor table Range: 15-100,000,000 IU/mL.The javier HCV is an in vitro nucleic acid amplification test for both the detection and quantitation of hepatitis C virus (HCV) RNA, in human EDTA plasma or serum, of HCV antibody positive or HCV-infected individuals on the javier Medbox0/8800 Systems. Dual probes are used to detect [...] the [facility] Diagnostic Laboratory, Department of Pathology, [facility]. Performed By: #### 5 7021-8 #### SHWETA ROCHA ([id number]) [facility] ([facility]) [address] [place] [address] 47442 Hepatic function 2000 panelo n 09-16-2023 Albumin BCP dye [Mass/Vol] 4.1 g/dL Normal 3.4-5.0 [facility] Comment on above: Performed By: #### 5 7021-8 #### SHWETA ROCHA ([id number]) [facility] ([facility]) [address] [place] [address] 39410 ALP [Catalytic activity/Vol] 96 U/L Normal 33-110 [facility] Comment on above: Performed By: #### 5 7021-8 #### SHWETA ROCHA ([id number]) [facility] ([facility]) [address] [place] [address] 37787 ALT With P-5'-P [Catalytic activity/Vol] 21 U/L Normal 7-45 [facility] Comment on above: Result Comment: Katia ents treated with Sulfasalazine may generate falsely decreased results for ALT. Performed By: #### 5 7021-8 #### SHWETA ROCHA ([id number]) [facility] ([facility]) [address] [place] [address] 94725 AST With P-5'-P [Catalytic activity/Vol] 17 U/L Normal 9-39 [facility] Comment on above: Performed By: #### 5 7021-8 #### SHWETA ROCHA ([id number]) [facility] ([facility]) [address] [place] [address] 21578 Bilirubin [Mass/Vol] 0.2 mg/dL Normal 0.0-1.2 [facility] Comment on above: Performed By: #### 5 7021-8 #### SHWETA ROCHA ([id number]) [facility] ([facility]) [address] [place] [address] 79186 Bilirubin.direct [Mass/Vol] 0.1 mg/dL Normal 0.0-0.3 [facility] Comment on above: Performed By: #### 5 7021-8 #### SHWETA ROCHA ([id number]) [facility] ([facility]) [address] [place] [address] 15262 Protein [Mass/Vol] 6.7 g/dL Normal 6.4-8.2 [facility] Comment on above: Performed By: #### 5 7021-8 #### SHWETA BARNETT RIO KEY ([id number]) [facility] ([facility]) [address] [place] [address] 91819 XR ELBOW RIGHT 3+ VIEWSon XR ELBOW RIGHT 3+ VIEWS STUDY: Elbow Radiographs; 09/16/2023 4:48 PM INDICATION: Injury to the right elbow. COMPARISON: None Available. ACCESSION NUMBER(S): [id number] ORDERING CLINICIAN: GERMAINE BLAIR TECHNIQUE: Five view(s) of the right elbow. FINDINGS: There is no displaced fracture. The alignment is anatomic. No soft tissue abnormality is seen. There is no joint effusion. IMPRESSION: No acute bony abnormalities. Signed by Johan Connor MD [facility] Coding Summary.on 09-12-[address] [facility] Provider Letteron 09-12-[address] [facility] Discharge Instructionson Discharge Instructions [id number]#1.00T IFF Normal [facility] MRI Spine Lumbar w/o Contras ton 09-10-2023 MRI Spine Lumbar w/o Contrast [facility] RAD - Preliminary Cat Scan R eporton 09-10-2023 RAD - Preliminary Cat Scan Report [id number]#1.00T IFF Normal [facility] Consent for Treatmenton 08-23 Consent for Treatment [id number]#1.00T IFF Normal [facility] ED Clinical Summaryon 2023 ED Clinical Summary Normal [facility] ED Note-Physicianon 09-09-19 ED Note-Physician Normal [facility] Comment on above: Result Comment: Elec tronically Signed By: Landon Tidwell PA-C\.br\Date and Time Signed: 09/09/23 23:52 EDT\.br\Electronically Co-Signed By: Elisa Sánchez DO\.br\Date and Time Co-Signed: 09/09/23 23:54 EDT ED Patient Education Noteon 09-09-2023 ED Patient Education Note Normal [facility] ED Patient Summaryon 024 ED Patient Summary Normal [facility] RAD - MRI Screening Formon 0 09-09-2023 RAD - MRI Screening Form [id number]#1.00 TIFF Normal [facility] ED Clinical Summaryon 2023 ED Clinical Summary Normal [facility] ED Note-Physicianon 09-07-19 ED Note-Physician Normal [facility] Comment on above: Result Comment: Elec tronically Signed By: Zhane Castro PA-C.br\Date and Time Signed: 09/07/23 00:11 EDT\.br\Electronically Co-Signed By: Pedro Pablo Fletcher DO.br\Date and Time Co-Signed: 09/07/23 01:06 EDT ED Patient Education Noteon 09-07-2023 ED Patient Education Note Normal [facility] ED Patient Summaryon ED Patient Summary Normal [facility] Consent for Treatmenton 08-23 Consent for Treatment [id number]#1.00T IFF Normal [facility] Consent for Treatmenton 08-23 Consent for Treatment [id number]#1.00T IFF Normal [facility] Discharge Instructionson Discharge Instructions [id number]#1.00 TIFF Normal [facility] ED Clinical Summaryon 2023 ED Clinical Summary Normal [facility] ED Note-Physicianon 09-02-19 ED Note-Physician Normal [facility] Comment on above: Result Comment: Elec tronically Signed By: Jorge Mcintosh DO\.br\Date and Time Signed: 09/02/23 18:33 EDT ED Patient Education Noteon 09-02-2023 ED Patient Education Note Normal [facility] ED Patient Summaryon 024 ED Patient Summary Normal [facility] Progress Note-Nurseon 2023 Progress Note-Nurse left with ride Normal [facility] Consent for Treatmenton Consent for Treatment [id number]#1.00T IFF Normal [facility] Discharge Instructionson Discharge Instructions [id number]#1.00 TIFF Normal [facility] ED Clinical Summaryon 2023 ED Clinical Summary Normal [facility] ED Note-Nursingon 08-30-2023 ED Note-Nursing pt states she is mitra ng driven home by her who is at bedside Normal [facility] ED Note-Physicianon 08-30-19 ED Note-Physician Normal [facility] Comment on above: Result Comment: Elec tronically Signed By: April Krueger PA-C\.br\Date and Time Signed: 08/30/23 19:02 EDT\.br\Electronically Co-Signed By: Nikhil Tubbs DO\.br\Date and Time Co-Signed: 08/30/23 19:48 EDT ED Patient Education Noteon 08-30-2023 ED Patient Education Note Normal [facility] ED Patient Summaryon 024 ED Patient Summary Normal [facility] Coding Summaryon 08-27-2023 Coding Summary HTMLBase 64 UhtkaxaiHZs3qTx+PGhlYWQ +CL6GJUJpL59pcLStfP8mI9 NMTElOSywgQVBQTElOSyIgb bNzKH1hvQKnXSHd IC8+ST3hIFOqBduirCUqy2R 5vDK4K88qli2bNLxxwPF0IZ FfUrZchusve8mhrKt2PMvdL mluOyBt NVWxeF75VSJ3fP24Ie85sTA uwHXjo6bmpTq4BsGsEEFkLR H4uNdsLFclp9ZcUXOuN00yi CFfe3V5 JNQghBtopLSzHsYmwEK2cX0 rHLccqepth2ywbyylBor9bd 33rXSpm4C5jQI0Q8HlhcJ6U GJvbGQg XipreHCBaN6wqynyy5jsnxw iXmYxVHKkDKh6LJs5IZUhwT gcYuBlPL39ICK7UHOjexNbO 2FsLWFs pItfMsT7f5F8Pc1ZB1EDXmf dO8UQLXOUJDdhiZD+PC90cj 45D3NgAcilXmp8UEJbDKC6r LO9aU0j DCVpMBkqe8H9fIS3L7PzbuV yis2iu4lsNQJaOCivJ34aeB Dpb9F3XDDpxTJ4IUIomRryR iBzaG93 Oyc+XFKotFwvu1GvQfnef8a dj0cjaJg6RsgiNCZjmzDyhG vzCDN1r5NvQd8vXTZfsNC4f FO4eR7p LcSjGpS9PUhvN881ZkNilYZ hGzfsX90pD9OhyTG+PHRyPj q0PNVbyOmsWI4xO8CrBYUdx mctbGVm hXhhBH2eDAOmrwreJYMvcB5 pPMWbO3n3HfUfCwV7CRqwF3 EdLFOzmbmuJw49nE3nNsAmC mD2JPec M2GavgQ7QJCncIHdPPurQKL 0S10nr7P4KVZgQHLwCHD3qR G0gS3jjJvxhqgdhQDieLohm mVydGlj RTfpFPevI889OCPepCnkGbJ vZGluZyBEYXRlOiAgMDYvMD QvMjAyNDwvdGQ+TUUmZRC5g WxlPSAn jTKdWDnrGl9bjRucnZsvSB3 mLLYlscotSUUrzD5jSQHuxS QhjRcoZS4yDLIkqxrnv902C iAxMHB0 GAGuwUItG0QjcJ2xUgIkGOF hIBIkX9EnvHXeAHkcX749UO qhBiA8LARrldGsD8RuPDSwj WduOiB0 b1X9Xt7Cv7PtjabhG5BfsMA wGlZvAbxhREr6Q7NcUjqmiZ I+CZ13UOCcME88AMg5KSV1z WxlPSdi FYZvT3GwbQ2uFzMkJJEjGQW kOyc+PHRhYmxlIHdpZHRoPS hoSEPbBjNyuStsMJ3nFy0lU GVyLWNv hFcueRNcXoCtx7zqBYNpFTr mFR5zuQleM9RurKT4JBSap4 j1Ws72G13nJ4TupEM+PGNvb HL1zHU9 iZ9fLhNrCkP2KSiyZ312NqK fmKOfEkavu7dlf8ifbXt9Jq N4RDIbyjNxiOnlVZC5m9QmC m76N65s IHdpZHRoPSIxNSUiIHZhbGl jbm3knC1iOb4+MEKkfTZ8uR G6yR8hQoWsDhG5RVspE073G nRvcCIv Cblat1ucz5qqbIn2ChDtVGJ cgqAkdKuxCXL1r3XkVf07L7 KsbElhz8TdPnc7cd91vRJql 2P3kIY0 B8LmSGMgjbafdTFwcXsmXV5 kAKQnrdabIZBqeU1yVBIuO1 s5PqRpJmR9SYtbZ7LkrrY4T GJvbGQg LRYecFLNkU1ywhunk8hpfso qYsOiHQTtIAs1XCr0IBWsaK qdTpTlLSB0SvE8SXM9eXUdx Z0mgNzm hbhdgJ2fJnw+QEP0uYWdpCT LOQ2pRxuaoHB+WVTsYAA1bC wlEWwyPQPfvX5aDIPsV2y5K iAwLjA1 OPfpQ8SaqcO4VRXloKHuFYY pePPSiC5arostl2olcfjsFe BtYNQbDSc7OKc7KWRriUohM iBsZWZ0 YiS3FTR3oRKlwB5bcMofdrs qeT9nGwc+IkayuHrbWCU2AW m8F7TpHle8QFWslMqbOZ6rh GFkZGlu Rt0vhLvtjOpoSJ7gSAGoihj hc464ZjCwe9naOTKduBFfUJ jgNYR6D28ex0B2CJYiCGKoH ZU5vNQ8 iO8niFiamrqvdLXwmVmhibF yeSqbYRiaYUnfZ018YXIxrM oyXeZbKAd2K3EoWwy4SANce AriRX4r cANvHJziCs8qiQwydErvGL7 sFSQqijdzc133IqOal3jtGM IzaAAsBPezVHL0K05gu2L0R CMwMDAw GCB6rML0nE9cjTmiaevqoXB mdDsgdmVydGljYWwtYWxpZ2 49AZNyiTdxUxLxfQz9Y1LfH la1KFWm wAmtOT6bvLJmXHsfCm7toZk zsMqzID8mCWVquysuj938Ig Bzm9msQPOchYLfMGxqFAK4H 50rs7T4 KONcPZUeZRV2nCP5hK6jsKt nbjogbGVmdDsgdmVydGljYW fyDRpeM529ANQzuMquZiTxc GllbnQg WCvtGXy3Z7GdIzzslYQ+PC9 8VROqTJ10dMHvfQRwx8iapC b4SjBvOARaAEY0mLovSDmwn 3JkZXIt T42aaNHom3E5NLBwaWioyKD iDrLoqGJ0vB6oKSkrdzryx5 vwsoopOtwti1txui75aJ95P 29sIHdp ZHRoPSIzMCUiIHZhbGlnbj0 seD0yKz6+RZMooPC3pLZ6aJ 3uJFOjFrE4SGpyJ507MdWfs CIvPjxj c4zpj9ooqSv7ClX9JPJkcoZ nlUunBVR7a0UyFl68K45xVL dpZHRoPSIyMCUiIHZhbGlnb r6yyV1s Ii8+ECAgdLS0nFD4qA2kGrP wOqM6YLlcA091ZuQqoKVhVa aoP21lA5JbyIZ+VKHcLrb0G CBzdHls MF1rkJJgVGujNv9dOEJ1XtL oReAkTQqmA6NeEPUeizdsoh snaOV1MNUvPSHvwI73Wq1wz DogMTBw qYIYnL0moaxcj4fpzqqeHvT dKZGrPFd6ZLz8CKAyuGpkJe AeEXK5LtT4CDA6cNDrkC9cw Glnbjog uR3iJ6EaGBClszqaRq44cM0 hStOaTpT6EMmtKzo+TElFQi nkDFQUBNFGSZQFZdlMGjY4C 1BkKja8 SXLrtFnvSU2hnHHmFTfkIc9 ryZsulNnvJC0hQUAlhraeAB MmlO0hPKQeeHTvnSpnRR4cP TBpbjtm r473PiOmMQF4UQCopPScZ6W pfQ7sGwJjVANzJZGyA2DybZ InMPdpG229BOqsGgU6SEJer xIxB6Hp UAAkrBqvZgD9p7B8Dw4mXt6 uSQ7oUSv0TL09KD75nLJsw1 J6tUU7N0UhHCTkwfgvwtrhz ZN3UXYs LTMcgW70xABwDBwzYi6es3W 5g062DROyDJJhuX18Nr7anG tlWKGqbJPDmY3rozecu8fmr jogIzAw GMGuPVi9ACv3ISGpgIzmZuJ lOGB9CuS3PPE0hMScgG1xaE kzdejytE2gAvr+NDYgWWVhc rE5L3Ai Dpr5ILIecJblGY1niMIkQXl lLv6feCnnmEdkHH1oPBVplb hjLVVkfL3cCPZgiGBfbGnkQ C2pYVAi dkoey459UsDpBQC5GFWppLI oK4CffJ3gOhPkQZRuHXNxN2 NqeOGlOYpoR730WIasVqO8I HZlcnRp S7TvCSPgwNwkIwM4r7W2Yl6 TXZ3AJRF2H0FsAak6XNSgrR rgIT0vdMAqFStqRh4puDiky CndEY5o VQObachaBUTdoS1dTVYbhFZ abYfxML2qZBJgdwbwi830Cp YlGHR0GEHbeFAsQ6MwfE0zA iAjMDAw XKUdP3AgsCBgEEhyX356EAk jXmI0RFEgsnLpG9IoSRCqkR jeDbQ5b6A1Md7VzRElN6WsM 8e7A2Tu PjwvdHI+PQ48OHHbCE56sTR rcAPdo3wyoPd1TiMzBXQbBR G5uFjgTXakj2OnCWQqW20va DRuj2Y2 GOJgbNfxyTZvNeMdbQN6jS6 yMIhcfvngh9byxuyzBsouf2 beko98yO73F03tKNcfCMKwG SIzMCUi FEIutZiqfc2jqX2zZq5+PGN reVB4aZN1fN4uTkPaShW0FU umS995WqWloSAbDimqm5gia 1ymhVt1 MxPzZOPsurQzrQydQHH5y5V iDr10O15zFZevMMKgSFJoHJ CzPQFndYcxvl3eaW0zYi3+P X3lx7ze gc96rB28qTH+XIBcGUU2fHk kYOprYOOpiV1vWUlsXkR7DR PyDsSwtK09nUGxNLjlSs1ew WdodDog FD5mQRXzwyezi541JrIss9y nMURktUTzWXlzJJA5W67jf3 P8PRGsVGQnUIV9yVW9zE6yw Glnbjog bGVmdDsgdmVydGljYWwtYWx aM030WWMkoVqfTbYilOIbA3 rdicMNBE8eQauvyHX+PHRkI IT2aNde DJjjSPQzpJ4bMQAhT3z9EgW bHqR1QObhQ9RgqyD4TXFpvS IxBNKjhQCMpA7gawfhu8kvr jogIzAw VPLbYLx4FVv6NWUgjXnsAxV mGLT5BlY5ZZO1pOYqgJ7vlR etecdiaV8cZdo+RklOOjwvd GQ+PHRk ITW7xQcjUJslSESwkX8fECE aR5f8DnMxEbE7RGqaM5Byjd P2VOTtxXUxHVTgpADGmD5de ibij1gw qgigEiNcPGYkVGy5XJk5ILH gpTlxCgGiQTX5CrR7AEJ8vE ZvwJ6uqWlzudclmV2fJes+T VJOOjwv dGQ+AILwTEU4tDsgYLypRKJ jpM5xTSTzT0l7EyXxFoX9OR tsW3OttpT5BHBviIGrEQBub OGKpO8m nnojn9aembpkWrSjMTSdYLi 3LBg3ORVifWxxPfYnZUF8Wk D8GPM1oRIrlO3miQtqzcgug G9wOyc+ JLY5XTY3NJ83OH98X9ZrLij vdGFibGU+PHRhYmxlIHdpZH MkBKauDVIaYoKkbXxpEL9hF k6cJVVr LWN (more content not included)... [facility] [place] FLUORO IMAGES NO CHARGEon 08-21-2023 [place] FLUORO IMAGES NO CHARGE These images are not reportable by radiology and will not be interpreted by Radiologists. [facility] VERAB/VERIFY ABORHon 024 ABO group Nom (Bld) O Normal [facility] Comment on above: Performed By: #### 5 902-2 #### JOLENE Cantu ([id number]) [facility] ([facility]) [address] [place] [address] D Ag Ql (Bld) Positive [facility] Comment on above: Performed By: #### 5 902-2 #### JOLENE Cantu ([id number]) [facility] ([facility]) [address] [place] [address] Verify ABO/Rh Group Test (VE RAB)on 08-21-2023 ABO group Nom (Bld) O [facility] D Ag Ql (Bld) Positive [facility] XR tomography Unspecified diana dy regionon 08-21-2023 These images are not reportable by radiology and will not be interpreted by Radiologists. IMAGING ED Clinical Summaryon 2023 ED Clinical Summary [facility] Emergency Department [address] [place], [place] [id number] ED Clinical Summary PERSON INFORMATION Name: JERAD TRACY Age: 48 Years Sex: FEMALE : 1975 MRN: Acct#: Visit Reason: Back pain; FELL , LOWER BACK PAIN Arrival: 08/17/2023 15:31:41 Discharge: 08/17/2023 17:29:00 LOS: 000 01:58 Check In: 08/17/2023 15:31:41 Checkout:08/17/2023 17:29:00 Address: [address] [place] [address] PCP: Cheyanne Mckeon PROVIDER INFORMATION Provider Role Assigned Unassigned Peter Chavez DO ED Provider 08/17/2023 16:07:25 Gayla Miranda CARGOMAN Nurse 08/17/2023 16:08:50 VITALS INFORMATION Vital Sign [...] area. Patient supposed to have surgery at [facility] next month. Patient tripped over a hose [...] paraspinal musculat (more content not included)... Normal [facility] ED Note - Physicianon 2023 ED Note [...] area. Patient supposed to have surgery at [facility] next month. Patient tripped over a hose [...] for close (more content not included)... Normal [facility] ED Patient Summaryon 024 ED Patient Summary [facility] - Emergency Department [address] [place] [address] PATIENT DISCHARGE INSTRUCTIONS Patient Information Name: JERAD TRACY Age: 48 Years Date of : 1975 Reason For Visit: Back pain; FELL , LOWER BACK PAIN Arrival Time: 08/17/2023 15:31:41 Primary Care Physician: Cheyanne Mckeon Attending Physician: Peter Chavez DO Comment: Visit Diagnosis: Diagnoses This Visit Acute lumbosacral myofascial strain (S39.012A) Back pain ([id number]) The Pharmacy at [facility] is open Saturday through Saturday from 9A [...] alcohol and/or drug addiction problems; contact the [facility] 15/10 Crisis Hotline -Text 2OREJ ua 759321. If you received any narcotics, sedation, or [...] and treatment you received today in the [facility] Emergency Department were for an urgent problem and are not intended as complete care. It is important for you to follow up with a doctor, nurse practitioner, or physician?s per diem physical therapist assistant for ongoing care. If your symptoms become [...] so we can reach you if necessary. [facility] Emergency Department has provided you with a complete list of medications post discharge. Please inform your furnace attendant/provider of your visit and for further instruction [...] a treatme (more content not included)... Normal [facility] XR Spine Lumbosacral 2 or 3 Viewson [...] MD 08/17/23 5:42 pm Technologist: Wendy TRAN [facility] CT Head or Brain w/o Contras ton 08-16-2023 CT Head or Brain w/o Contrast [facility] CT Spine Cervical w/o Contra ston 08-16-2023 CT Spine Cervical w/o Contrast [facility] Discharge Instructionson Discharge Instructions [id number]#1.0 0TIFF Normal [facility] ED Clinical Summaryon 2023 ED Clinical Summary (Inserted Image. Darlene ble to display) [address] [address] ED Clinical Summary Person Information Name: Jerad Tracy/[facility] Age: 48 Years : 1975 Sex: Female PCP: Unavailable, Physician Marital Status: Phone: Race: White Ethnicity: Not or Language: Serbian Visit Reason: Back pain; back pain Acuity: 4 Enc Type: Emergency Med Service: Emergency Medicine Arrival: 08/16/2023 15:20:16 Discharge: 08/16/2023 16:38:00 LOS: 000 01:18 Checkin: 08/16/2023 15:20:16 Checkout: 08/16/2023 16:38:00 Dispo Type: Home or Self Care Address: [address] [place] [phone] Provider Notes: Diagnosis: 1:Chronic back pain Problems [...] Caring for Your Back Throughout the Day [facility] Poison Help line: . [facility] Hotline: [place] [employer] Quit Line: [place], [place]) [address]: [phone] [facility] ([place], [place]) [address]: [phone] [facility] [address] [place], [place]: [phone] [facility] ED Clinical Summary Normal [facility] ED Note-Physicianon 08-16-19 ED Note-Physician Chief Complaint Patient was traveling in the car from [place] and has started having lower back spasms. [...] more ciga (more content not included)... [facility] ED Note-Physician [facility] Comment on above: Result Comment: Elec tronically Signed By: Balbina Bryant M.D.\.br\Date and Time Signed: 08/16/23 03:58 EDT ED Patient Education Noteon 08-16-2023 ED Patient Education Note [facility] ED Patient Summaryon 024 ED Patient Summary [facility] RAD - Preliminary Cat Scan R eporton 08-16-2023 RAD - Preliminary Cat Scan Report [id number]#1.0 0TIFF [facility] RAD - Preliminary Cat Scan Report [id number]#1.0 0TIFF [facility] Workers Comp Formson 024 Workers Comp Forms [id number]#1.0 0TIFF [facility] XR Spine Lumbosacral 2 or 3 Viewson 08-16-2023 XR Spine Lumbosacral 2 or 3 Views [facility] XR Spine Thoracic 3 Viewson 08-16-2023 XR Spine Thoracic 3 Views [facility] Consent for Treatmenton 07-24 Consent for Treatment [id number]#1.00T IFF Normal [facility] Consent for Treatmenton 07-24 Consent for Treatment [id number]#1.00 TIFF Normal [facility] Consultation Noteon 08-14-19 Consultation Note [facility] Comment on above: Result Comment: Elec tronically Signed By: Christos SLATER, Domenic Arroyo.br\Date and Time Signed: 08/14/23 16:33 EDT Office/Clinic Note-Physician on 08-14-2023 Office/Clinic Note-Physician [id number]#1.00 TIFF [facility] Patient Correspondenceon Patient Correspondence [id number]#1.00 TIFF [facility] Patient Correspondence [id number]#1.00 TIFF [facility] Patient History Officeon Patient History Office [id number]#1.00 TIFF [facility] Consent for Treatmenton 07-24 Consent for Treatment [id number]#1.00T IFF [facility] Discharge Instructionson Discharge Instructions [id number]#1.00 TIFF Normal [facility] ED Clinical Summaryon 2023 ED Clinical Summary Normal [facility] ED Note-Nursingon 08-12-2023 ED Note-Nursing This nurse went to discharge patient and recheck vitals and patient has eloped from the department without her instructions. [facility] ED Note-Physicianon 08-12-19 ED Note-Physician [facility] Comment on above: Result Comment: Elec tronically Signed By: Elisa Sánchez DO.rufino\Date and Time Signed: 08/12/23 22:53 EDT ED Patient Education Noteon 08-12-2023 ED Patient Education Note [facility] ED Patient Summaryon 024 ED Patient Summary Normal [facility] ED NOTESon 08-09-2023 Php Ed Note ED Note: Last filed note HNO ID: [id number] Author: Yarelis Finley RN Service: ? Author Type: Registered Nurse Filed: 08/09/23 2310 Note Text: Discharge instructions, medications and follow up discussed with patient with patient's understanding verbalized. Patient left the department in no acute distress. Normal [facility] ED PROVIDER NOTESon 08-09-19 [facility] Ed Provider Note ED Provider Note: L ast filed note HNO ID: [id number] Author: Keke Payne MD Service: ? Author Type: Physician Filed: 08/09/23 1834 Note Text: [facility] Keke Payne MD Attending [...] upcoming lumbar surgery in 2 weeks at [facility]. She just had a 3-hour car [...] lower back pain with radicular pain Normal [facility] Ed Provider Note ED Provider Note: Pepe ast filed note HNO ID: [id number] Author: Courtney Gibbs MD Service: Emergency Medicine [...] scheduled for surgery later this month in [place]. Patient states that she is in town [...] topical patc (more content not included)... Normal [facility] ED TRIAGEon 08-09-2023 [facility] Ed Triage Note ED Triage Note: Last filed note HNO ID: [id number] Author: Juan Gustafson RN Service: ? Author Type: Registered Nurse Filed: 08/09/23 5327 Note Text: Patient arrives through triage for complaints of chronic back pain that is worsened by a [address] Endorses history of L 4-5 disc herniation. A/O x4 with respirations even and unlabored. Normal [facility] Consent for Treatmenton 07-23 Consent for Treatment [id number] IFF [facility] Discharge Instructionson Discharge Instructions [id number]#1.0 0TIFF Normal [facility] ED Clinical Summaryon 2023 ED Clinical Summary Normal [facility] ED Note-Physicianon 08-05-19 ED Note-Physician [facility] Comment on above: Result Comment: Elec tronically Signed By: Landon Tidwell PA-C\.br\Date and Time Signed: 08/05/23 21:19 EDT\.br\Electronically Co-Signed By: Pedro Pablo Fletcher DO\.br\Date and Time Co-Signed: 08/05/23 22:58 EDT ED Patient Education Noteon 08-05-2023 ED Patient Education Note Normal [facility] ED Patient Summaryon 024 ED Patient Summary Normal [facility] Basic metabolic 2000 panelon 08-02-2023 Anion gap [Moles/Vol] 15 mmol/L Normal - [facility] Comment on above: Performed By: #### 5 902-2 #### JOLENE Cantu ([id number]) [facility] ([facility]) [address] [place] [address] Calcium [Mass/Vol] 8.8 mg/dL Normal 8.6-10.6 [facility] Comment on above: Performed By: #### 5 902-2 #### JOLENE Cantu ([id number]) [facility] ([facility]) [address] [place] [address] Chloride [Moles/Vol] 105 mmol/L Normal 98-107 [facility] Comment on above: Performed By: #### 5 902-2 #### JOLENE RONQUILLO L ([id number]) [facility] ([facility]) [address] [place] [address] CO2 [Moles/Vol] 24 mmol/L Normal 21-32 [facility] Comment on above: Performed By: #### 5 902-2 #### JOLENE Cantu ([id number]) [facility] ([facility]) [address] [place] [address] Creatinine [Mass/Vol] 0.63 mg/dL Normal 0.50-1.05 [facility] Comment on above: Performed By: #### 5 902-2 #### JOLENE RONQUILLO L ([id number]) [facility] ([facility]) [address] [place] [address] GFR/1.73 sq M.predicted MDRD (S/P/Bld) [Vol rate/Area] mL/min/{1.73_m2} Normal >60 [facility] Comment on above: Result Comment: Calc ulations of estimated GFR are performed using the 2020 CKD-EPI Study Refit equation without the race variable for the IDMS-Traceable creatinine methods. https://jasn.asnjournals.org/content//ASN.25133 34681 Performed By: #### 5 902-2 #### JOLENE Cantu ([id number]) [facility] ([facility]) [address] [place] [address] Glucose [Mass/Vol] 87 mg/dL Normal 74-99 [facility] Comment on above: Performed By: #### 5 902-2 #### JOLENE RONQUILLO L ([id number]) [facility] ([facility]) [address] [place] [address] Potassium [Moles/Vol] 4.8 mmol/L Normal 3.5-5.3 [facility] Comment on above: Performed By: #### 5 902-2 #### JOLENE RONQUILLO L ([id number]) [facility] ([facility]) [address] [place] [address] Sodium [Moles/Vol] 139 mmol/L Normal 136-145 [facility] Comment on above: Performed By: #### 5 902-2 #### JOLENE RONQUILLO L ([id number]) [facility] ([facility]) [address] [place] [address] Urea nitrogen [Mass/Vol] 10 mg/dL Normal 6-23 [facility] Comment on above: Performed By: #### 5 902-2 #### JOLENE Cantu ([id number]) [facility] ([facility]) [address] [place] [address]13 Blood type and Indirect anti body screen panel (Bld)on 08-02-2023 ABO group Nom (Bld) O Normal [facility] Comment on above: Performed By: #### 5 902-2 #### JOLENE Cantu ([id number]) [facility] ([facility]) [address] [place] [address] 46487 Blood group antibody screen Ql Negative [facility] Comment on above: Performed By: #### 5 902-2 #### JOLENE Cantu ([id number]) [facility] ([facility]) [address] [place] [address] 09374 D Ag Ql (Bld) Positive [facility] Comment on above: Result Comment: 2nd ABO test required. Order and Collect VERAB Performed By: #### 5 902-2 #### JOLENE Cantu ([id number]) [facility] ([facility]) [address] [place] [address] 49156 CBC panel Auto (Bld)on 08-01 Erythrocyte distribution width (RBC) [Ratio] 12.7 % Normal 11.5-14.5 [facility] Comment on above: Performed By: #### 5 902-2 #### JOLENE Cantu ([id number]) [facility] ([facility]) [address] [place] [address] 96757 Hematocrit (Bld) [Volume fraction] 42.8 % Normal 36.0-46.0 [facility] Comment on above: Performed By: #### 5 902-2 #### JOLENE Cantu ([id number]) [facility] ([facility]) [address] [place] [address]591 Hemoglobin (Bld) [Mass/Vol] 14.4 g/dL Normal 12.0-16.0 [facility] Comment on above: Performed By: #### 5 902-2 #### JOLENE Cantu ([id number]) [facility] ([facility]) [address] [place] [address] 78271 MCH (RBC) [Entitic mass] 30.9 pg Normal 26.0-34.0 [facility] Comment on above: Performed By: #### 5 902-2 #### JOLENE Cantu ([id number]) [facility] ([facility]) [address] [place] [address] 65304 MCHC (RBC) [Mass/Vol] 33.6 g/dL Normal 32.0-36.0 [facility] Comment on above: Performed By: #### 5 902-2 #### JOLENE Cantu ([id number]) [facility] ([facility]) [address] [place] [address] 34056 MCV (RBC) [Entitic vol] 92 fL Normal 80-100 [facility] Comment on above: Performed By: #### 5 902-2 #### JOLENE Cantu ([id number]) [facility] ([facility]) [address] [place] [address] 65282 Nucleated RBC/100 WBC (Bld) [Ratio] 0.0 /100 WBCs Normal 0.0-0.0 [facility] Comment on above: Performed By: #### 5 902-2 #### JOLENE Cantu ([id number]) [facility] ([facility]) [address] [place] [address] Platelets (Bld) [#/Vol] 308 x10*3/uL Normal 150-450 [facility] Comment on above: Performed By: #### 5 902-2 #### JOLENE Cantu ([id number]) [facility] ([facility]) [address] [place] [address] RBC (Bld) [#/Vol] 4.66 x10*6/uL Normal 4.00-5.20 [facility] Comment on above: Performed By: #### 5 902-2 #### JOLENE Cantu ([id number]) [facility] ([facility]) [address] [place] [address] WBC (Bld) [#/Vol] 5.9 x10*3/uL Normal 4.4-11.3 [facility] Comment on above: Performed By: #### 5 902-2 #### JOLENE Cantu ([id number]) [facility] ([facility]) [address] [place] [address] CT Spine Lumbar w/o Contrast on 08-02-2023 CT Spine Lumbar w/o Contrast Normal [facility] Consent for Treatmenton 07-23 Consent for Treatment [id number]#1.00T IFF Normal [facility] Discharge Instructionson Discharge Instructions [id number]#1.00 TIFF Normal [facility] ED Clinical Summaryon 2023 ED Clinical Summary Normal [facility] ED Note-Physicianon 08-02-19 ED Note-Physician Normal [facility] Comment on above: Result Comment: Elec tronically Signed By: Landon Tidwell PA-C\.br\Date and Time Signed: 08/02/23 15:22 EDT\.br\Electronically Co-Signed By: Nikhil Tubbs DO\.br\Date and Time Co-Signed: 08/02/23 15:32 EDT ED Patient Education Noteon 08-02-2023 ED Patient Education Note Normal [facility] ED Patient Summaryon 024 ED Patient Summary Normal [facility] PT and aPTT panel Coag (PPP) on 08-02-2023 aPTT Coag (PPP) [Time] 33 s Normal 27-38 Un [facility] Comment on above: Order Comment: The A PTT is no longer used for monitoring Unfractionated Heparin Therapy. For monitoring Heparin Therapy, use the Heparin Assay. Performed By: #### 5 902-2 #### JOLENE Cantu ([id number]) [facility] ([facility]) [address] [place] [address] 27350 INR Coag (PPP) [Relative time] 1.0 Normal 0.9-1.1 [facility] Comment on above: Order Comment: The A PTT is no longer used for monitoring Unfractionated Heparin Therapy. For monitoring Heparin Therapy, use the Heparin Assay. Performed By: #### 5 902-2 #### JOLENE Cantu ([id number]) [facility] ([facility]) [address] [place] [address] 45145 PT Coag (PPP) [Time] 11.1 s Normal 9.8-12.8 [facility] Comment on above: Order Comment: The A PTT is no longer used for monitoring Unfractionated Heparin Therapy. For monitoring Heparin Therapy, use the Heparin Assay. Performed By: #### 5 902-2 #### JOLENE Cantu ([id number]) [facility] ([facility]) [address] [place] [address] Progress Note-Nurseon 2023 Progress Note-Nurse Pt leaves with ride Normal [facility] Staphylococcus aureus.methic illin resistant isolateon 08-02-2023 MRSA isol Org specific cx Ql (Nose) Test: Staphylococcus aureus/MRSA colonization, Culture Specimen Source: Nares/Axilla/Groin Specimen Type: Swab Specimen Date: 08/02/2023 0853 Result Date: 08/03/2023 1234 Result Status: Final result Abnormal: No Resulting Lab: [facility] [address] [place], [place] [id number] CULTURE No Staphylococcus aureus isolated Normal [facility] Comment on above: Performed By: #### 5 902-2 #### JOLENE Cantu ([id number]) [facility] ([facility]) [address] [place] [address] 44480 Urinalysis complete W Reflex Culture panel (U)on 08-02-2023 Appearance (U) Clear Normal Clear [facility] Comment on above: Performed By: #### 5 902-2 #### JOLENE Cantu ([id number]) [facility] ([facility]) [address] [place] [address] 44142 Bilirubin (U) [Mass/Vol] Negative Normal NEGATIVE [facility] Comment on above: Performed By: #### 5 902-2 #### JOLENE Cantu ([id number]) [facility] ([facility]) [address] [place] [address] 09089 Color (U) Colorless Normal Light-Yellow , Yellow, Dark-Yellow [facility] Comment on above: Performed By: #### 5 902-2 #### JOLENE Cantu ([id number]) [facility] ([facility]) [address] [place] [address] 45133 Glucose Auto test strip (U) [Mass/Vol] Normal Normal Normal [facility] Comment on above: Performed By: #### 5 902-2 #### JOLENE Cantu ([id number]) [facility] ([facility]) [address] [place] [address] 00344 Ketones (U) [Mass/Vol] Negative Normal NEGATIVE [facility] Comment on above: Performed By: #### 5 902-2 #### JOLENE Cantu ([id number]) [facility] ([facility]) [address] [place] [address] 65516 Leukocyte esterase Auto test strip Ql (U) Negative Normal NEGATIVE [facility] Comment on above: Performed By: #### 5 902-2 #### JOLENE Cantu ([id number]) [facility] ([facility]) [address] [place] [address] 65142 Nitrite Auto test strip Ql (U) Negative Normal NEGATIVE [facility] Comment on above: Performed By: #### 5 902-2 #### JOLENE Cantu ([id number]) [facility] ([facility]) [address] [place] [address] 13908 pH (U) 7.5 [pH] Normal 5.0, 5.5, 6.0, 6.5, 7.0, 7.5, 8.0 [facility] Comment on above: Performed By: #### 5 902-2 #### JOLENE Cantu ([id number]) [facility] ([facility]) [address] [place] [address] 44511 Protein (U) [Mass/Vol] Negative Normal NEGAT ALEXANDRE, 10 (TRACE), 20 (TRACE) [facility] Comment on above: Performed By: #### 5 902-2 #### JOLENE Cantu ([id number]) [facility] ([facility]) [address] [place] [address] 44119 RBC (U) [#/Vol] Negative Normal NEGATIVE [facility] Comment on above: Performed By: #### 5 902-2 #### JOLENE Cantu ([id number]) [facility] ([facility]) [address] [place] [address] 87541 Specific gravity (U) [Rel density] 1.007 Normal 1.005-1.035 [facility] Comment on above: Performed By: #### 5 902-2 #### JOLENE Cantu ([id number]) [facility] ([facility]) [address] [place] [address] 71970 Urobilinogen (U) [Mass/Vol] Normal Normal Normal [facility] Comment on above: Performed By: #### 5 902-2 #### JOLENE Cantu ([id number]) [facility] ([facility]) [address] [place] [address] Consent for Treatmenton Consent for Treatment [id number]#1.00T IFF Normal [facility] Discharge Instructionson Discharge Instructions [id number]#1.00T IFF Normal [facility] ED Clinical Summaryon 2023 ED Clinical Summary Normal [facility] ED Note-Physicianon 07-31-19 ED Note-Physician Normal [facility] Comment on above: Result Comment: Elec tronically Signed By: Yaw MILES, Landon Govea\.br\Date and Time Signed: 07/31/23 15:32 EDT\.br\Electronically Co-Signed By: Balbina Bryant M.D.\.br\Date and Time Co-Signed: 07/31/23 15:51 EDT ED Patient Education Noteon 07-31-2023 ED Patient Education Note Normal [facility] ED Patient Summaryon 024 ED Patient Summary Normal [facility] Consent To Leave AMAon 07-25 Consent To Leave AMA [id number]#1.00T IFF Normal [facility] Consent for Treatmenton Consent for Treatment [id number]#1.00T IFF Normal [facility] Discharge Instructionson Discharge Instructions [id number]#1.00T IFF Normal [facility] ED Clinical Summaryon 2023 ED Clinical Summary Normal [facility] ED Note-Physicianon 07-26-19 ED Note-Physician [facility] Comment on above: Result Comment: Elec tronically Signed By: Jorge Mcintosh DO\.br\Date and Time Signed: 07/26/23 11:28 EDT ED Patient Education Noteon 07-26-2023 ED Patient Education Note Normal [facility] ED Patient Summaryon 024 ED Patient Summary Normal [facility] Consultation Noteon 07-24-19 Consultation Note [id number]#1.00T IFF Normal [facility] Consultation Note [id number]#1.00T IFF Normal [facility] Family Medicine Office/Clini c Noteon 07-23-2023 Family Medicine Office/Clinic Note Normal [facility] Comment on above: Result Comment: Elec tronically Signed By: Cheyanne Rincon\.br\Date and Time Signed: 07/23/23 14:37 EDT Physician Referralon 024 Physician Referral [id number]#1.00T IFF Normal [facility] CT Abdomen/Pelvis w/o Contra ston 07-21-2023 CT Abdomen/Pelvis w/o Contrast Normal [facility] ED Note-Physicianon 07-21-19 ED Note-Physician Normal [facility] Comment on above: Result Comment: Elec tronically Signed By: Balbina Bryant M.D.\.br\Date and Time Signed: 07/21/23 04:24 EDT XR Chest Single Viewon 07-20 XR Chest Single View Normal [facility] BMPon 07-20-2023 Anion gap [Moles/Vol] 10 mmol/L Normal 6-16 [facility] Comment on above: Performed By: #### 2 619490, 1440961, 5724768, 80928626, 95572726, 18229381, 85094569 ####[facility] [address] [place] [address] Calcium [Mass/Vol] 8.2 mg/dL Low 8.9-11.1 [facility] Comment on above: Performed By: #### 2 850125, 6712090, 8353775, 94474167, 74095899, 03552755, 04125473 ####[facility] [address] [place] [address] Chloride [Moles/Vol] 105 mmol/L Normal 101-111 [facility] Comment on above: Performed By: #### 2 352512, 4089852, 5825806, 71541716, 64112645, 22848499, 02908863 ####[facility] [address] [place] [address] CO2 [Moles/Vol] 26 mmol/L Normal 21-31 [facility] Comment on above: Performed By: #### 2 648083, 4941004, 4526923, 09701117, 16887771, 18755382, 45967230 ####[facility] [address] [place] [address] Creatinine [Mass/Vol] 0.7 mg/dL Normal 0.5-1.3 [facility] Comment on above: Performed By: #### 2 479359, 7893779, 0290011, 05521518, 20805596, 82797246, 50772795 ####[facility] [address] [place] [address] Glucose [Mass/Vol] 122 mg/dL Normal 55-199 [facility] Comment on above: Performed By: #### 2 015628, 3782745, 4726124, 35422861, 11449259, 37486117, 54849297 ####[facility] [address] [place] [address] Potassium [Moles/Vol] 4.0 mmol/L Normal 3.5-5.3 [facility] Comment on above: Performed By: #### 2 386666, 8437609, 1977672, 85936767, 71687470, 10058239, 45946819 ####[facility] [address] [place] [address] Sodium [Moles/Vol] 137 mmol/L Normal 135-145 [facility] Comment on above: Performed By: #### 2 134047, 9860181, 3473099, 36381129, 80200215, 31588220, 09098044 ####[facility] [address] [place] [address] Urea nitrogen [Mass/Vol] 17 mg/dL Normal 5-21 [facility] Comment on above: Performed By: #### 2 728385, 7419563, 3017690, 41484125, 76776776, 11572089, 67951725 ####[address] [address] Urea nitrogen/Creatinine [Mass ratio] 24 No Units High 10-20 [facility] Comment on above: Performed By: #### 2 620694, 5006050, 6017310, 69379925, 25953712, 26834094, 10532145 ####[address] [address] BNPon 07-20-2023 Natriuretic peptide B (Bld) [Mass/Vol] 25 pg/mL Normal 5-80 [facility] Comment on above: Performed By: #### 2 933978, 5828604, 0843800, 18633947, 94621293, 54772762, 62649618 ####[address] [address] CBC w/ Auto Diffon 4 Basophils/100 WBC (Bld) 0.4 % Normal 0.0-2.0 [facility] Comment on above: Performed By: #### 2 257955, 4154120, 8168717, 07853107, 27019793, 43041757, 59018852 ####[facility] [address] [place] [address] Basophils/Leukocytes Auto (Bld) [Pure # fraction] 0.0 E9/L Normal 0.0-0.2 [facility] Comment on above: Performed By: #### 2 804853, 2954247, 4600288, 23320901, 63738296, 84321454, 12134164 ####[facility] [address] [place] [address] Eosinophils (Bld) [#/Vol] 0.2 E9/L Normal 0.0-0.5 [facility] Comment on above: Performed By: #### 2 450759, 8777982, 1631312, 36643293, 81648578, 48297503, 67801270 ####[address] [place] [address] Eosinophils/100 WBC (Bld) 1.3 % Normal 0.0-8.0 [facility] Comment on above: Performed By: #### 2 493786, 6433015, 7760792, 26691607, 20682665, 76730722, 51575889 ####[place] [place] [address] Erythrocyte distribution width (RBC) [Ratio] 13.3 % Normal 10.9-14.2 [facility] Comment on above: Performed By: #### 2 602025, 3167498, 1961750, 15667574, 56088706, 20919135, 58585200 ####[address] [place] [address] Hematocrit (Bld) [Volume fraction] 38.3 % Normal 34.0-46.0 [facility] Comment on above: Performed By: #### 2 858307, 5285300, 2247310, 58200111, 77923744, 72394540, 73212935 ####[address] [place] [address] Hemoglobin (Bld) [Mass/Vol] 12.9 g/dL Normal 12.0-16.0 [facility] Comment on above: Performed By: #### 2 373362, 6858077, 0440100, 60706990, 66481353, 51521216, 00665862 ####[facility] [address] [place] [address] Lymphocytes (Bld) [#/Vol] 2.2 E9/L Normal 1.0-4.0 [facility] Comment on above: Performed By: #### 2 548583, 6909160, 4875210, 31917423, 37920200, 59834695, 95702044 ####[facility] [address] [place] [address] Lymphocytes/100 WBC (Bld) 18.2 % Normal 14.0-50.0 [facility] Comment on above: Performed By: #### 2 437313, 2025166, 7222954, 77740096, 84627710, 46617579, 81286304 ####[address] [address] MCH (RBC) [Entitic mass] 31.7 pg Normal 27.0-34.0 [facility] Comment on above: Performed By: #### 2 825989, 2243025, 6928482, 08323738, 42405611, 57730774, 02562642 ####[address] [address] MCHC (RBC) [Mass/Vol] 33.8 g/dL Normal 31.4-36.0 [facility] Comment on above: Performed By: #### 2 654670, 3769749, 2859692, 87629167, 95631421, 21587312, 40818343 ####[address] [address] MCV (RBC) [Entitic vol] 93.8 fL Normal 80.0-100.0 [facility] Comment on above: Performed By: #### 2 743158, 8664666, 4151332, 21314588, 92410220, 90211389, 94294868 ####[facility] [address] [place] [address] Monocytes (Bld) [#/Vol] 0.6 E9/L Normal 0.2-1.0 [facility] Comment on above: Performed By: #### 2 380343, 8234851, 6007400, 97170280, 62047139, 17883687, 85634450 ####[facility] [address] [place] [address] Neutrophils (Bld) [#/Vol] 9.0 E9/L High 2.0-7.5 [facility] Comment on above: Performed By: #### 2 168947, 7445128, 2979250, 26234313, 22802923, 62370117, 92827746 ####[facility] [address] [place] [address] Neutrophils/100 WBC (Bld) 75.2 % High 36.0-75.0 [facility] Comment on above: Performed By: #### 2 433878, 6810460, 4304039, 26090892, 86309234, 97619261, 08010676 ####[facility] [address] [place] [address] Platelet mean volume (Bld) [Entitic vol] 8.9 fL Normal 6.4-10.8 [facility] Comment on above: Performed By: #### 2 487085, 2007701, 6435040, 22006195, 00068319, 91600175, 64403472 ####[address] [address] Platelets (Bld) [#/Vol] 245.0 E9/L Normal 150.0-500.0 [facility] Comment on above: Performed By: #### 2 087200, 5375836, 3118102, 24780172, 46596845, 64144996, 84263689 ####[address] [address] RBC (Bld) [#/Vol] 4.1 E12/L Low 4.3-5.9 [facility] Comment on above: Performed By: #### 2 369156, 3406476, 4035617, 23826231, 41723703, 23857678, 50797204 ####[facility] [address] [place] [address] WBC corrected for nucl RBC Auto (Bld) [#/Vol] 11.9 E9/L High 4.0-11.0 [facility] Comment on above: Performed By: #### 2 243269, 3185888, 5299456, 41852451, 52488312, 24005689, 40995529 ####[facility] [address] [place] [address] Consent for Treatmenton 06-24 Consent for Treatment [id number]#1.00T IFF Normal [facility] Discharge Instructionson Discharge Instructions [id number]#1.00T IFF Normal [facility] ED Clinical Summaryon 2023 ED Clinical Summary Normal [facility] ED Patient Education Noteon 07-20-2023 ED Patient Education Note Normal [facility] ED Patient Summaryon 024 ED Patient Summary Normal [facility] Hep Func Panelon 07-20-2023 Albumin [Mass/Vol] 3.8 g/dL Normal 3.3-5.0 [facility] Comment on above: Performed By: #### 2 314434, 8595986, 5990716, 87193648, 78778193, 96277288, 14120767 ####[facility] [address] [place] [address] Albumin/Globulin (S) [Mass conc ratio] 1.4 Normal 1.1-2.2 [facility] Comment on above: Performed By: #### 2 594309, 9431462, 5702529, 11655596, 76252930, 49712644, 15943446 ####[facility] [address] [place] [address] ALP [Catalytic activity/Vol] 68 Int._Unit/L Normal 21-98 [facility] Comment on above: Performed By: #### 2 600316, 6644459, 3409494, 63820698, 30689325, 26393656, 49456560 ####[facility] [address] [place] [address] ALT No additional P-5'-P [Catalytic activity/Vol] 22 Int._Unit/L Normal 6-46 [facility] Comment on above: Performed By: #### 2 245986, 9971521, 0280334, 08913773, 03372173, 95949431, 09637320 ####[facility] [address] [place] [address] AST [Catalytic activity/Vol] 26 Int._Unit/L Normal 5-43 [facility] Comment on above: Performed By: #### 2 246849, 1279076, 8592440, 24972676, 65906088, 78821659, 86776949 ####[facility] [address] [place] [address] Bilirubin [Mass/Vol] 0.3 mg/dL Normal 0.0-1.1 [facility] Comment on above: Performed By: #### 2 091539, 1466986, 3445851, 75260650, 33710136, 67902220, 69464792 ####[facility] [address] [place] [address] Bilirubin.direct [Mass/Vol] 0.1 mg/dL Normal 0.0-0.4 [facility] Comment on above: Performed By: #### 2 664651, 0616638, 1789775, 01575980, 03248598, 49938608, 80957521 ####[facility] [address] [place] [address] Bilirubin.indirect [Mass or moles/Vol] 0.2 mg/dL Normal 0.1-0.9 [facility] Comment on above: Performed By: #### 2 829153, 2185792, 5898234, 95454660, 06125826, 48974788, 07232671 ####[facility] [address] [place] [address] Globulin (S) [Mass/Vol] 2.8 g/dL Normal 1.4-4.0 [facility] Comment on above: Performed By: #### 2 389501, 1315282, 1427237, 29653550, 61471273, 11201924, 65512719 ####[facility] [address] [place] [address] Protein [Mass/Vol] 6.6 g/dL Normal 6.0-7.8 [facility] Comment on above: Performed By: #### 2 782957, 7602508, 3925547, 33094935, 73016208, 66419487, 20739859 ####[facility] [address] [place] [address] PT & PTTon 07-20-2023 aPTT Coag (PPP) [Time] 33.9 second(s) Normal 25.1-36.5 [facility] Comment on above: Result Comment: Para meter [...] the same coagulation reagent and instrumentation as [facility] [place]. Currently there are no coagulation studies available worldwide for children to 14 days, and no normal ranges. Heparin therapeutic range (represented by Anti-Factor Xa activity of 0.2 - 0.4 U/mL) corresponds to PTT of 56.6 - 109.0 sec. Performed By: #### 2 606091, 9645763, 5231623, 32766391, 75818117, 31156155, 40347254 ####[facility] [address] [place] [address] INR Coag (PPP) [Relative time] 0.98 {INR} Invalid Interpretation Code [facility] Comment on above: Result Comment: INR results are specifically intended to assess patients stabilized on long-term Anticoagulation therapy suggested INR?s ?Less Intensive Anticoagulation? 2.0 ? 3.0Conventional Range 3.0 ? 4.5 Performed By: #### 2 854680, 4090894, 6004725, 21332079, 97455842, 50976754, 51345748 ####[facility] [address] [place] [address] PT Coag (PPP) [Time] 11.0 second(s) Normal 9.4-12.5 [facility] Comment on above: Result Comment: 15 d [...] the same coagulation reagent and instrumentation as [facility] [place]. Currently there are no coagulation studies available worldwide for children to 14 days, and no normal ranges. Performed By: #### 2 254581, 6376630, 9615351, 97276398, 28394589, 14193294, 41656102 ####[facility] [address] [place] [address] RAD - Preliminary Cat Scan R eporton 07-20-2023 RAD - Preliminary Cat Scan Report [id number]#1.00T IFF Normal [facility] Troponin 0 Hr.on 07-20-2023 Troponin 11.90 pg/mL Normal 10.10-27.10 [facility] Comment on above: Result Comment: The 95% CI (Confidence Interval) PPV (Positive Predictive Value) for myocardial infarction in females is 38 pg/mL, in males 51 pg/mL. The results should be used in conjunction with clinical conditions of myocardial infarction.(Access High Sensitivity Troponin I Instructions For Use, [employer], October 2017) Performed By: #### 2 145333, 1249525, 9510911, 63098267, 41515164, 77072802, 58301120 ####[facility] [address] [place] [address] Troponin 1 Hr.on 07-20-2023 Troponin 2.50 pg/mL Low 10.10-27.10 [facility] Comment on above: Order Comment: to be drawn at [facility]9. [id number] 07/20/2023 18:47:40 EDT Result Comment: The 95% CI (Confidence Interval) PPV (Positive Predictive Value) for myocardial infarction in females is 38 pg/mL, in males 51 pg/mL. The results should be used in conjunction with clinical conditions of myocardial infarction.(Access High Sensitivity Troponin I Instructions For Use, [employer], October 2017) Performed By: #### 1 8902871 ####[facility] [address] [place] [address] eGFRon 07-20-2023 eGFR 108 mL/min/1.73 m2 Normal >=59 [facility] Comment on above: Order Comment: Order added by Discern Expert. Performed By: #### 2 430773, 7755340, 2680614, 40350362, 27307666, 94798876, 22405671 ####[facility] [address] [place] [address] Outside Records Officeon Outside Records Office [id number]#1.00 TIFF Normal [facility] Ambulatory Visit Summaryon 0 07-17-2023 Ambulatory Visit Summary Invalid Interpretation Code Weight gain [facility] Auth for Release of Medical Recordson 07-17-2023 Auth for Release of Medical Records [id number]#1.00T IFF Normal [facility] Formson 07-17-2023 Forms [id number]#1.00T IFF Normal [facility] Patient Educationon 07-17-19 Patient Education Normal [facility] Outside Records Officeon Outside Records Office [id number]#1.00 TIFF Normal [facility] Outside Records Office [id number]#1.00 TIFF Normal [facility] Consent for Treatmenton 06-24 Consent for Treatment [id number]#1.00 TIFF Normal [facility] Consultation Noteon 07-15-19 Consultation Note Normal [facility] Comment on above: Result Comment: Elec tronically Signed By: Joao MILES, Dory\.br\Date and Time Signed: 07/15/23 14:14 EDT HIPAA Forms Officeon 024 HIPAA Forms Office [id number]#1.00 TIFF Normal [facility] Legal Correspondence Officeo n 07-15-2023 Legal Correspondence Office [id number]#1.00 TIFF Normal [facility] Legal Correspondence Office [id number]#1.00 TIFF Normal [facility] Office/Clinic Note-Physician on 07-15-2023 Office/Clinic Note-Physician [id number]#1.00 TIFF Normal [facility] Patient Correspondenceon Patient Correspondence [id number]#1.00 TIFF Normal [facility] Patient Correspondence [id number]#1.00 TIFF Normal [facility] Patient Correspondence [id number]#1.00 TIFF Normal [facility] Patient Correspondence [id number]#1.00 TIFF Normal [facility] Patient Correspondence [id number]#1.00 TIFF Normal [facility] Patient History Officeon Patient History Office [id number]#1.00 TIFF Normal [facility] Release of Records Officeon 07-15-2023 Release of Records Office [id number]#1.00 TIFF Normal [facility] Release of Records Office [id number]#1.00 TIFF [facility] Consent for Treatmenton 06-24 Consent for Treatment [id number]#1.00T IFF [facility] Discharge Instructionson Discharge Instructions [id number]#1.00 TIFF [facility] ED Clinical Summaryon 2023 ED Clinical Summary Normal [facility] ED Note-Physicianon 07-14-19 ED Note-Physician Normal [facility] Comment on above: Result Comment: Elec tronically Signed By: Angelic Reece PA-C\.br\Date and Time Signed: 07/14/23 12:06 EDT\.br\Electronically Co-Signed By: Nikhil Tubbs DO.br\Date and Time Co-Signed: 07/14/23 13:59 EDT ED Patient Education Noteon 07-14-2023 ED Patient Education Note Normal [facility] ED Patient Summaryon 024 ED Patient Summary Normal [facility] Consent for Treatmenton 06-23 Consent for Treatment [id number]#1.00T IFF Normal [facility] Discharge Instructionson Discharge Instructions [id number]#1.00TI FF Normal [facility] ED Clinical Summaryon 2023 ED Clinical Summary Normal [facility] ED Note-Physicianon 07-11-19 ED Note-Physician Normal [facility] Comment on above: Result Comment: Elec tronically Signed By: Balbina Bryant M.D.\.br\Date and Time Signed: 07/11/23 10:11 EDT ED Patient Education Noteon 07-11-2023 ED Patient Education Note Normal [facility] ED Patient Summaryon ED Patient Summary Normal [facility] Clipboard Summaryon 07-08-19 Clipboard Summary {ho-30-ml-01-9d-ab-4 a-8 8-08-81-3a-38-9r-d1-42- 37}XML Normal [facility] Discharge Instructionson Discharge Instructions [id number]#1.00 TIFF Normal [facility] Consent for Treatmenton 06-23 Consent for Treatment [id number]#1.00T IFF Normal [facility] ED Clinical Summaryon 2023 ED Clinical Summary Normal [facility] ED Note-Physicianon 07-06-19 ED Note-Physician Normal [facility] Comment on above: Result Comment: Elec tronically Signed By: Pedro Pablo Fletcher DO\.br\Date and Time Signed: 07/06/23 19:43 EDT ED Patient Education Noteon 07-06-2023 ED Patient Education Note Normal [facility] ED Patient Summaryon 024 ED Patient Summary Normal [facility] Consent for Treatmenton Consent for Treatment [id number]#1.00T IFF Normal [facility] Discharge Instructionson Discharge Instructions [id number]#1.00 TIFF Normal [facility] ED Clinical Summaryon 2023 ED Clinical Summary Normal [facility] ED Note-Physicianon 06-29-19 ED Note-Physician Normal [facility] Comment on above: Result Comment: Elec tronically Signed By: Landon Tidwell PA-C\.br\Date and Time Signed: 06/29/23 15:22 EDT\.br\Electronically Co-Signed By: Nikhil Tubbs DO\.br\Date and Time Co-Signed: 06/29/23 15:52 EDT ED Patient Education Noteon 06-29-2023 ED Patient Education Note Normal [facility] ED Patient Summaryon 024 ED Patient Summary Normal [facility] .HCV RT-PCR, Quant (Non-Grap h)on 06-27-2023 Diagnostic impression [employer] Sky (Unsp spec) [Interp] Comment Invalid Interpretation Code [facility] Comment on above: Result Comment: Posi tive HCV antibody screen without the presence of HCV RNAis consistent with a resolved past infection or a falsepositive HCV antibody. Consider repeat testing after onemonth.Performed at: [facility] [id number] MD Bhargav Lamar Performed By: #### 2 635269, [id number], [id number] ####[facility] [address] [place] [address] HCV RNA LINDSEY+probe Qn Not detected Invalid Interpretation Code [facility] Comment on above: Performed By: #### 2 367927, [id number], 3563000857 ####[facility] [address] [place] [address] Reference Lab Test Reference Range Comment Invalid Interpretation Code [facility] Comment on above: Result Comment: The quantitative range of this assay is 15 IU/mL to 100 million IU/mL. Performed By: #### 2 449375, [id number], [id number] ####[facility] [address] [place] [address] Consent for Treatmenton Consent for Treatment [id number]#1.00T IFF Normal [facility] Discharge Instructionson Discharge Instructions [id number]#1.00 TIFF Normal [facility] ED Clinical Summaryon 2023 ED Clinical Summary Normal Osbaldo martinez [facility] ED Note-Physicianon 06-27-19 ED Note-Physician Normal [facility] Comment on above: Result Comment: Elec tronically Signed By: Kristie Boss PA-C\.br\Date and Time Signed: 06/27/23 12:40 EDT\.br\Electronically Co-Signed By: Nikhil Tubbs DO\.br\Date and Time Co-Signed: 06/27/23 14:49 EDT ED Patient Education Noteon 06-27-2023 ED Patient Education Note Normal [facility] ED Patient Summaryon 024 ED Patient Summary Normal [facility] HCV Antibody RFX to Quant PC Fernando 06-27-2023 HCV IgG IA Ql Reactive Abnormal Non Reactive [facility] Comment on above: Result Comment: Perf ormed at: [employer] [place], [place] [id number] PhD Pantera Alonso Performed By: #### 2 336297, [id number], [id number] ####[facility] [address] [place] [address] Hep Bs Agon 06-27-2023 HBV surface Ag IA Ql Negative Invalid Interpretation Code Negative [facility] Comment on above: Result Comment: Perf ormed at: [employer] [place], [place] [id number] PhD Pantera Alonso Performed By: #### 2 780388, [id number], [id number] ####[facility] [address] [place] [address] Consent for Treatmenton Consent for Treatment [id number]#1.00T IFF Normal [facility] Discharge Instructionson Discharge Instructions [id number]#1.00 TIFF Normal [facility] ED Clinical Summaryon 2023 ED Clinical Summary Normal [facility] ED Note-Physicianon 06-24-19 ED Note-Physician Normal [facility] Comment on above: Result Comment: Elec tronically Signed By: Annette Watkins, Balbina Sparks\.br\Date and Time Signed: 06/24/23 12:17 EDT ED Patient Education Noteon 06-24-2023 ED Patient Education Note Normal [facility] ED Patient Summaryon 024 ED Patient Summary Normal [facility] MRI Spine Lumbar w/o Contras ton 06-24-2023 MRI Spine Lumbar w/o Contrast Normal [facility] RAD - MRI Screening Formon 0 06-24-2023 RAD - MRI Screening Form [id number]#1.00T IFF Normal [facility] CT Abdomen/Pelvis w/ Contras ton 06-23-2023 CT Abdomen/Pelvis w/ Contrast Normal [facility] CBC w/ Auto Diffon 4 Basophils/100 WBC (Bld) 0.1 % Normal 0.0-2.0 [facility] Comment on above: Performed By: #### 1 6340997, 12691819, 9443180, 0417408, 1390032, 6225146, 61595107, 6400467 ####[facility] [address] [place] [address] Basophils/Leukocytes Auto (Bld) [Pure # fraction] 0.0 E9/L Normal 0.0-0.2 [facility] Comment on above: Performed By: #### 1 1671489, 82342188, 7838061, 4294471, 5159281, 1908378, 12921823, 5751613 ####[facility] [address] [place] [address] Eosinophils (Bld) [#/Vol] 0.1 E9/L Normal 0.0-0.5 [facility] Comment on above: Performed By: #### 1 1260935, 39180844, 4844720, 4746553, 6752286, 1926615, 30820041, 0525841 ####[address] [place] [address] Eosinophils/100 WBC (Bld) 0.9 % Normal 0.0-8.0 [facility] Comment on above: Performed By: #### 1 4699827, 68855963, 2458595, 7021847, 0586432, 7305092, 39401859, 4152497 ####[address] [address] Erythrocyte distribution width (RBC) [Ratio] 13.3 % Normal 10.9-14.2 [facility] Comment on above: Performed By: #### 1 9837554, 89553271, 8828678, 6070959, 9352766, 9605485, 50872094, 5549590 ####[address] [place] [address] Hematocrit (Bld) [Volume fraction] 45.0 % Normal 34.0-46.0 [facility] Comment on above: Performed By: #### 1 6205463, 23691700, 6521036, 4255958, 0827002, 8773418, 85916376, 5688064 ####[address] [address] Hemoglobin (Bld) [Mass/Vol] 15.1 g/dL Normal 12.0-16.0 [facility] Comment on above: Performed By: #### 1 1145251, 36291391, 4257021, 1970614, 9213647, 3386573, 43448780, 3598387 ####[address] [place] [address] Lymphocytes (Bld) [#/Vol] 0.4 E9/L Low 1.0-4.0 [facility] Comment on above: Performed By: #### 1 0750523, 82849609, 1712984, 2443312, 1845508, 0931111, 40993283, 3437063 ####[address] [address] Lymphocytes/100 WBC (Bld) 3.7 % Low 14.0-50.0 [facility] Comment on above: Performed By: #### 1 9818826, 32345361, 6752041, 2522615, 7518630, 1487395, 81795777, 2350170 ####[address] [address] MCH (RBC) [Entitic mass] 31.5 pg Normal 27.0-34.0 [facility] Comment on above: Performed By: #### 1 5697125, 10939199, 8230595, 2900596, 5271785, 9645856, 28367505, 5921541 ####[address] [address] MCHC (RBC) [Mass/Vol] 33.5 g/dL Normal 31.4-36.0 [facility] Comment on above: Performed By: #### 1 7468638, 35328094, 6029393, 7927971, 6099733, 6388875, 17354848, 2450082 ####[address] [address] MCV (RBC) [Entitic vol] 94.2 fL Normal 80.0-100.0 [facility] Comment on above: Performed By: #### 1 3535423, 55734013, 5153154, 3973304, 8762513, 0414297, 09743881, 3266196 ####[facility] [address] [place] [address] Monocytes (Bld) [#/Vol] 0.3 E9/L Normal 0.2-1.0 [facility] Comment on above: Performed By: #### 1 6322069, 06833464, 7365590, 1623173, 1862487, 1020362, 82098609, 0182083 ####[address] [place] [address] Neutrophils (Bld) [#/Vol] 9.5 E9/L High 2.0-7.5 [facility] Comment on above: Performed By: #### 1 1613955, 34886328, 6128972, 8283775, 0081010, 4437215, 96983403, 8395683 ####[address] [address] Neutrophils/100 WBC (Bld) 92.1 % High 36.0-75.0 [facility] Comment on above: Performed By: #### 1 9300865, 66132690, 2963220, 6696632, 5611922, 6690928, 69771420, 9245801 ####[address] [address] Platelet 308.0 E9/L Normal 150.0-500.0 [facility] Comment on above: Performed By: #### 1 3947246, 94328685, 9493156, 6278495, 9269107, 8384884, 15616615, 8973811 ####[address] [place] [address] Platelet mean volume (Bld) [Entitic vol] 8.7 fL Normal 6.4-10.8 [facility] Comment on above: Performed By: #### 1 8759714, 89155558, 4406854, 3071826, 0216716, 3290525, 55834982, 6875764 ####[address] [address] RBC (Bld) [#/Vol] 4.8 E12/L Normal 4.3-5.9 [facility] Comment on above: Performed By: #### 1 2261718, 66367208, 8557876, 5226496, 4233141, 6803710, 70222940, 2974287 ####[facility] [address] [place] [address] WBC corrected for nucl RBC Auto (Bld) [#/Vol] 10.3 E9/L Normal 4.0-11.0 [facility] Comment on above: Performed By: #### 1 3802179, 86021869, 3403315, 8734187, 2530301, 6384767, 23308476, 6333014 ####[facility] [address] [place] [address] CHEMISTRYOrdered By: Chiquita saldana on 06-22-2023 Lactic [...] Sensitivity Troponin I Instructions For Use, [facility] [place], October 2017) Urea nitrogen [Mass/Vol] 13 mg/dL Normal 5 - 21 mg/dL Remisol Chem Urea nitrogen/Creatinine [Mass ratio] 19 mg/mg Normal 10 - 20 Remisol Chem CMPon 06-22-2023 Albumin [Mass/Vol] 4.2 g/dL Normal 3.3-5.0 [facility] Comment on above: Performed By: #### 1 9606127, 36534443, 7318298, 3411379, 7207048, 9257285, 90755954, 5176105 ####[address] [place] [address] Albumin/Globulin (S) [Mass conc ratio] 1.2 Normal 1.1-2.2 [facility] Comment on above: Performed By: #### 1 9616263, 83271493, 7450887, 3967149, 9623059, 6256909, 85008238, 6423532 ####[facility] [address] [place] [address] ALP [Catalytic activity/Vol] 74 Int._Unit/L Normal 21-98 [facility] Comment on above: Performed By: #### 1 4903416, 89097420, 1296679, 6065019, 4503856, 2683677, 01952470, 7882293 ####[facility] [address] [place] [address] ALT No additional P-5'-P [Catalytic activity/Vol] 17 Int._Unit/L Normal 6-46 [facility] Comment on above: Performed By: #### 1 6343564, 75941496, 5735588, 2664915, 6299709, 1184376, 33552859, 2485262 ####[facility] [address] [place] [address] Anion gap [Moles/Vol] 13 mmol/L Normal 6-16 [facility] Comment on above: Performed By: #### 1 6971883, 03594570, 1339651, 5717449, 6029089, 9862162, 17647367, 6666216 ####[facility] [address] [place] [address] AST [Catalytic activity/Vol] 18 Int._Unit/L Normal 5-43 [facility] Comment on above: Performed By: #### 1 1735004, 77712400, 9985243, 0419632, 8215303, 5410918, 67531706, 9734261 ####[address] [place] [address] Bilirubin [Mass/Vol] 0.6 mg/dL Normal 0.0-1.1 [facility] Comment on above: Performed By: #### 1 2305021, 02735947, 4053300, 8676853, 4817422, 1240632, 27842462, 1221471 ####[facility] [address] [place] [address] Calcium [Mass/Vol] 8.3 mg/dL Low 8.9-11.1 [facility] Comment on above: Performed By: #### 1 7050968, 46412655, 1821311, 7620429, 1757481, 0683201, 05324648, 1696130 ####[facility] [address] [place] [address] Chloride [Moles/Vol] 106 mmol/L Normal 101-111 [facility] Comment on above: Performed By: #### 1 1806573, 38115253, 6215051, 9209833, 0347808, 8542026, 05419373, 2189763 ####[facility] [address] [place] [address] CO2 [Moles/Vol] 24 mmol/L Normal 21-31 [facility] Comment on above: Performed By: #### 1 9715019, 00262523, 2928336, 0289232, 7060262, 9096674, 28848634, 8860646 ####[facility] [address] [place] [address] Creatinine [Mass/Vol] 0.7 mg/dL Normal 0.5-1.3 [facility] Comment on above: Performed By: #### 1 4321200, 27369902, 8025867, 3818351, 9159873, 8103838, 15077697, 2094459 ####[facility] [address] [place] [address] Globulin (S) [Mass/Vol] 3.6 g/dL Normal 1.4-4.0 [facility] Comment on above: Performed By: #### 1 8257520, 00052848, 9517105, 8234464, 8371513, 3949865, 04041410, 8718746 ####[facility] [address] [place] [address] Glucose [Mass/Vol] 124 mg/dL Normal 55-199 [facility] Comment on above: Performed By: #### 1 1706573, 69830846, 7558416, 9137372, 6116885, 3741521, 92776572, 8953281 ####[facility] [address] [place] [address] Potassium [Moles/Vol] 3.9 mmol/L Normal 3.5-5.3 [facility] Comment on above: Performed By: #### 1 5482582, 64798725, 9554128, 0441277, 8393595, 2111867, 32897201, 4648826 ####[facility] [address] [place] [address] Protein [Mass/Vol] 7.8 g/dL Normal 6.0-7.8 [facility] Comment on above: Performed By: #### 1 5073486, 96342082, 6392842, 1524854, 4430434, 9666056, 11809119, 6749261 ####[facility] [address] [place] [address] Sodium [Moles/Vol] 139 mmol/L Normal 135-145 [facility] Comment on above: Performed By: #### 1 8219337, 74347370, 2975118, 0859648, 9626315, 9757376, 32005011, 0540995 ####[facility] [address] [place] [address] Urea nitrogen [Mass/Vol] 13 mg/dL Normal 5-21 [facility] [facility] Comment on above: Performed By: #### 1 [id number], [id number], 9646137, 0384902, 3781965, 6438570, 86306213, 0719621 ####[facility] [address] [place] [address] Urea nitrogen/Creatinine [Mass ratio] 19 No Units Normal 10-20 [facility] Comment on above: Performed By: #### 1 6563964, 87709208, 5267574, 6894819, 2950790, 9943972, 00970902, 6541080 ####[facility] [place] [address] COAGULATIONOrdered By: Nuvia Carrillo on 06-22-2023 aPTT Coag (PPP) [Time] 36.0 s Normal 25.1 - 36.5 second(s) [facility] Auto Coag Comment [...] the same coagulation reagent and instrumentation as [facility]. Currently there are no coagulation studies available worldwide for children to 14 days, and no normal ranges. Heparin therapeutic range (represented by Anti-Factor Xa activity of 0.2 - 0.4 U/mL) corresponds to PTT of 56.6 - 109.0 sec. INR Coag (PPP) [Relative time] 0.96 {INR} Invalid Interpretation Code [facility] Auto Coag Comment on above: Interpretive Data: I NR results are specifically intended to assess patients stabilized on long-term Anticoagulation therapy suggested INR s Less Intensive Anticoagulation 2.0 3.0 Conventional Range 3.0 4.5 PT Coag (PPP) [Time] 10.7 s Normal 9.4 - 1 2.5 second(s) [facility] Auto Coag Comment [...] the same coagulation reagent and instrumentation as [facility]. Currently there are no coagulation studies available worldwide for children to 14 days, and no normal ranges. Consent for Treatmenton 05-25 Consent for Treatment [id number]#1.00 TIFF Normal [facility] Consent for Treatment [id number]#1.00T IFF Normal [facility] Discharge Instructionson Discharge Instructions [id number]#1.00 TIFF Normal [facility] ED Clinical Summaryon 2023 ED Clinical Summary Normal [facility] ED Note-Physicianon 06-22-19 ED Note-Physician Normal [facility] Comment on above: Result Comment: Elec tronically Signed By: Ssuu Lamar PA-C\.br\Date and Time Signed: 06/22/23 15:59 EDT\.br\Electronically Co-Signed By: Nikhil Tubbs DO\.br\Date and Time Co-Signed: 06/22/23 18:54 EDT ED Patient Education Noteon 06-22-2023 ED Patient Education Note Normal [facility] ED Patient Summaryon 024 ED Patient Summary Normal [facility] HEMATOLOGYOrdered By: SYSTEM SYSTEM on 06-22-2023 Basophils/100 [...] - 11.0 E9/L Remisol Heme HIV-1/2 Ag/Ab Comboon 2023 HIV 1+2 Ab and HIV1 p24 Ag IA.rapid Nom (S/P/Bld) Negative Normal Negative [facility] Comment on above: Performed By: #### 8 [id number] ####[facility] [address] [place] [address] HIV 1+2 Ab+HIV1 p24 Ag IA Ql Non-Reactive Normal Non-Reactive [facility] Comment on above: Performed By: #### 8 [id number] ####[facility] [address] [place] [address] HIV Combo Internal Control Line Reactive Normal Reactive [facility] Comment on above: Performed By: #### 8 [id number] ####[address] [place] [address] HIV-1/2 Ag/Ab Combo Negative for HIV-1 and/or HIV-2 antibodies and HIV-1 p24 antigen. Normal Negative [facility] Influenza A&B Agon Influenzae A Ag Negative Normal Negative [facility] Comment on above: Performed By: #### 1 [id number], [id number] ####[address] [address] Influenzae B Ag Negative Normal Negative [facility] Comment on above: Result Comment: Test sensitivity and specificity vary for age group, specimen type, antigen types, and prevalence of disease. Test results must be evaluated in conjunction with other clinical data available to the physician. Individuals who received nasally administered Influenza A vaccine may have positive test results up to 3 days after vaccination. Performed By: #### 1 [id number], [id number] ####[address] [address] Lactic Acidon 06-22-2023 Lactic Acid Lvl 1.4 mmol/L Normal 0.5-2.2 [facility] Comment on above: Performed By: #### 1 0270325, 50852620, 2485479, 1788984, 6356990, 0902599, 58797580, 7494151 ####[facility] [address] [place] [address] Lipase Levelon 06-22-2023 Lipase [Catalytic activity/Vol] U/L Low 13-58 [facility] Comment on above: Performed By: #### 1 9407051, 49851651, 4833095, 4852038, 5937390, 0784847, 37037465, 7984605 ####[facility] [address] [place] [address] MICRO OTHER TESTSOrdered By: Allen Hansen on 06-22-2023 Influenzae A Ag Negative (06/22/23 2:59 PM) Normal Negative [facility] Man Sero Influenzae B Ag Negative 2 (06/22/23 2:59 PM) Normal Negative [facility] Sero Comment on above: Interpretive Data: T [...] NEG Ctl Pass (06/22/23 2:59 PM) Normal [facility] Sero Rapid COV Int POS Ctl Pass (06/22/23 2:59 PM) Normal [facility] Sero SARS-CoV+SARS-CoV-2 (COVID-19) Ag IA.rapid Ql (Resp) Not Detected 7 (06/22/23 2:59 PM) Normal Not Detected [facility]ero Comment on above: Interpretive Data: T he [email or web address] Veritor System for Rapid Detection of SARS-CoV-2 [...] 06-22-2023 Magnesium [Mass/Vol] 1.8 mg/dL Normal 1.3-2.4 [facility] Comment on above: Performed By: #### 1 8240903, 72770342, 0011840, 4630107, 1602935, 0680149, 46055301, 5333418 ####[facility] [address] [place] [address] PT & PTTon 06-22-2023 aPTT Coag (PPP) [Time] 36.0 second(s) Normal 25.1-36.5 [facility] Comment on above: Result Comment: Para meter [...] the same coagulation reagent and instrumentation as [facility]. Currently there are no coagulation studies available worldwide for children to 14 days, and no normal ranges. Heparin therapeutic range (represented by Anti-Factor Xa activity of 0.2 - 0.4 U/mL) corresponds to PTT of 56.6 - 109.0 sec. Performed By: #### 1 3296450, 66522825, 2796837, 5501034, 1126402, 4364267, 94393641, 5759479 ####[facility] [address] [place] [address] INR Coag (PPP) [Relative time] 0.96 {INR} Invalid Interpretation Code [facility] Comment on above: Result Comment: INR results are specifically intended to assess patients stabilized on long-term Anticoagulation therapy suggested INR?s ?Less Intensive Anticoagulation? 2.0 ? 3.0Conventional Range 3.0 ? 4.5 Performed By: #### 1 8175437, 16308975, 2938536, 1098504, 4036328, 3741468, 15823454, 5398279 ####[facility] [address] [place] [address] PT Coag (PPP) [Time] 10.7 second(s) Normal 9.4-12.5 [facility] Comment on above: Result Comment: 15 d [...] the same coagulation reagent and instrumentation as [facility]. Currently there are no coagulation studies available worldwide for children to 14 days, and no normal ranges. Performed By: #### 1 9279414, 63592528, 3466602, 8709347, 4117163, 8268151, 25402913, 5727865 ####[facility] [address] [place] [address] Physician Orderon 06-22-2023 Physician Order [id number]#1.00 TIFF Normal [facility] RAD - Preliminary Cat Scan R eporton 06-22-2023 RAD - Preliminary Cat Scan Report [id number]#1.00 TIFF Normal [facility] Rapid COVID Antigen ([facility])on 06-22-2023 Rapid COV Int NEG Ctl Pass Normal [facility] Comment on above: Performed By: #### 1 3284737, [id number] ####[facility] [address] [place] [address] Rapid COV Int POS Ctl Pass Normal [facility] Comment on above: Performed By: #### 1 1383101, [id number] ####[facility] [address] [place] [address] SARS-CoV+SARS-CoV-2 (COVID-19) Ag IA.rapid Ql (Resp) Not detected Normal Not Detected [facility] Comment on above: Result Comment: The [employer]? System for Rapid Detection of SARS-CoV-2 is [...] or revoked sooner. Performed By: #### 1 1402879, [id number] ####[facility] [address] [place] [address] Troponin 0 Hr.on 06-22-2023 Troponin 3.10 pg/mL Low 10.10-27.10 [facility] Comment on above: Result Comment: The 95% CI (Confidence Interval) PPV (Positive Predictive Value) for myocardial infarction in females is 38 pg/mL, in males 51 pg/mL. The results should be used in conjunction with clinical conditions of myocardial infarction.(Access High Sensitivity Troponin I Instructions For Use, Katlyn Edson, October 2017) Performed By: #### 1 8496985, 90695264, 8216414, 6190588, 3921081, 0367869, 10595646, 6964056 ####[facility] [address] [place] [address] UA with Cult Rflxon 06-22-19 24 Color (U) Yellow Normal Yellow [facility] Comment on above: Result Comment: Micr oscopic readings are only performed on those samples that meet specific criteria set forth by [facility]. Performed By: #### 4 [id number] ####[facility] [address] [place] [address] Glucose (U) [Mass/Vol] Negative Normal Negative [facility] Comment on above: Performed By: #### 4 [id number] ####[facility] [address] [place] [address] Ketones Ql (U) Negative Normal Negative [facility] Comment on above: Performed By: #### 4 [id number] ####[facility] [address] [place] [address] UA Blood Negative Normal Negative [facility] Comment on above: Performed By: #### 4 271362591 ####[facility] [address] [place] [address] UA Clarity Clear Normal Clear [facility] Comment on above: Performed By: #### 4 534862518 ####[facility] [address] [place] [address] UA Leuk Est Negative Normal Negative [facility] Comment on above: Performed By: #### 4 929990570 ####[facility] [address] [place] [address] UA Nitrite Negative Normal Negative [facility] Comment on above: Performed By: #### 4 136952051 ####[facility] [address] [place] [address] UA pH 7.0 Invalid Interpretation Code 5.0-9.0 [facility] Comment on above: Performed By: #### 4 [id number] ####[facility] [address] [place] [address] UA Protein Trace Abnormal Negative [facility] Comment on above: Performed By: #### 4 [id number] ####[facility] [address] [place] [address] UA Spec Grav 1.028 Invalid Interpretation Code 1.005-1.030 [facility] Comment on above: Performed By: #### 4 [id number] ####[facility] [address] [place] [address] UA Urobilinogen Negative Normal Negative [facility] Comment on above: Performed By: #### 4 [id number] ####[facility] [address] [place] [address] Urobilinogen (U) [Mass/Vol] Negative Normal Negative [facility] Comment on above: Performed By: #### 4 [id number] ####[facility] [address] [place] [address] UA Spec Desc Clean Catch Normal [facility] Comment on above: Performed By: #### 4 [id number] ####[facility] [address] [place] [address] URINALYSISOrdered By: SYSTEM SYSTEM on 06-22-2023 Color (U) Yellow 1 (06/22/23 3:09 PM) Normal Yellow [facility] UA Auto SS Comment on above: Interpretive Data: M icroscopic readings are only performed on those samples that meet specific criteria set forth by [facility]. Glucose (U) [Mass/Vol] Negative Normal Negat ivemg/d L FT UA Auto SS Ketones Ql (U) Negative Normal Negativemg/d L FT UA Auto SS UA Blood Negative Normal Negativemg/d L FT UA Auto SS UA Clarity Clear (06/22/23 [...] 06-22-2023 eGFR 108 mL/min/1.73 m2 Normal >=59 [facility] Comment on above: Order Comment: Order added by Discern Expert. Performed By: #### 1 7608843, 57492623, 5011234, 9390260, 0979696, 6501187, 61951279, 8541185 ####[facility] [address] [place] [address] Hepatic function 2000 panelo n 06-17-2023 Albumin BCP dye [Mass/Vol] 4.0 g/dL Normal 3.4-5.0 [facility] Comment on above: Performed By: #### 5 902-2 #### JOLENE Cantu ([id number]) [facility] ([facility]) [id number] [place] [address] ALP [Catalytic activity/Vol] 87 U/L Normal 33-110 [facility] Comment on above: Performed By: #### 5 902-2 #### JOLENE Cantu ([id number]) [facility] ([facility]) [address] [place] [address] ALT With P-5'-P [Catalytic activity/Vol] 18 U/L Normal 7-45 [facility] Comment on above: Result Comment: Katia ents treated with Sulfasalazine may generate falsely decreased results for ALT. Performed By: #### 5 902-2 #### JOLENE Cantu ([id number]) [facility] ([facility]) [address] [place] [address] AST With P-5'-P [Catalytic activity/Vol] 18 U/L Normal 9-39 [facility] Comment on above: Performed By: #### 5 902-2 #### JOLENE Cantu ([id number]) [facility] ([facility]) [address] [place] [address] Bilirubin [Mass/Vol] 0.5 mg/dL Normal 0.0-1.2 [facility] Comment on above: Performed By: #### 5 902-2 #### JOLENE Cantu ([id number]) [facility] ([facility]) [address] [place] [address] Bilirubin.direct [Mass/Vol] 0.1 mg/dL Normal 0.0-0.3 [facility] Comment on above: Performed By: #### 5 902-2 #### JOLENE Cantu ([id number]) [facility] ([facility]) [address] [place] [address] Protein [Mass/Vol] 7.0 g/dL Normal 6.4-8.2 [facility] Comment on above: Performed By: #### 5 902-2 #### JOLENE Cantu ([id number]) [facility] ([facility]) [address] [place] [address] Consent for Treatmenton 05-24 Consent for Treatment [id number]#1.00T IFF Normal [facility] Discharge Instructionson Discharge Instructions [id number]#1.00T IFF Normal [facility] ED Clinical Summaryon 2023 ED Clinical Summary Normal [facility] ED Note-Physicianon 06-15-19 ED Note-Physician Normal [facility] Comment on above: Result Comment: Elec tronically Signed By: Annette Watkins, Balbina Sparks\.br\Date and Time Signed: 06/15/23 18:34 EDT ED Patient Education Noteon 06-15-2023 ED Patient Education Note Normal [facility] ED Patient Summaryon 024 ED Patient Summary Normal [facility] Consent for Treatmenton 05-23 Consent for Treatment [id number]#1.00T IFF Normal [facility] Discharge Instructionson Discharge Instructions [id number]#1.00T IFF Normal [facility] ED Clinical Summaryon 2023 ED Clinical Summary Normal [facility] ED Note-Physicianon 06-11-19 ED Note-Physician Normal [facility] Comment on above: Result Comment: Elec tronically Signed By: Elisa Sánchez DO.rufino\Date and Time Signed: 06/11/23 22:47 EDT ED PROVIDER NOTESon 06-11-19 [facility] Ed Provider Note ED Provider Note: Pepe ast filed note HNO ID: [id number] Author: Allyson Nicole DO Service: ? Author Type: Physician Filed: [...] and medical decision-making. Electronically signed by: Allyson Nicole DO, 06/11/2023 10:12 AM Normal [facility] ED Patient Education Noteon 06-11-2023 ED Patient Education Note Normal [facility] ED Patient Summaryon 024 ED Patient Summary Normal [facility] ED NOTESon 06-08-2023 [facility] Ed Note ED Note: Last filed note HNO ID: [id number] Author: Munira Perez RN Service: ? Author Type: Registered Nurse Filed: 06/08/23 7940 Note Text: Registration called for registration as pt has been up for discharge for 20 min. Normal [facility] ED PROVIDER NOTESon 06-08-19 [facility] Ed Provider Note ED Provider Note: Pepe ast filed note HNO ID: [id number] Author: Flex Jansen PA-C Service: Emergency Medicine Author Type: Physician [employer] Filed: 06/08/23 7610 Note Text: TRIAGE CHIEF COMPLAINT: Chief Complaint [...] Discussed with attending who did evaluate patient jneq-jw-bole, developed plan for pain control here, will be given fentanyl dose here with Zofran. Being prescription for Percocet. Encourage rest hydration outpatient follow-up as discussed, close return precautions if symptoms get worse. Did discuss with attending, Allyson Nicole DO, who did evaluate patient ucdc-gv-tmim. Patient otherwise stable at this time, vital signs are stable, patient afebrile, and nontoxic in appearance. Attending physician available for immediate consultation throughout entire patient's stay. Decision to Disposition Home or Admit: Discharge FINAL IMPRESSION: 1. Bilateral low back pain Normal [facility] ED TRIAGEon 06-08-2023 [facility] Ed Triage Note ED Triage Note: Last filed note HNO ID: [id number] Author: Cheryl Joiner, RN Service: Emergency Medicine Author Type: Registered Nurse Filed: 06/08/23 9416 Note Text: Pt arrives via triage for complaints of lower back apin. Pt states she has hx of bulging disc and states that she was in the car for a long time and thinks that it aggravated her pain more. Normal [facility] ED Note-Physicianon 06-04-19 ED Note-Physician Normal [facility] Comment on above: Result Comment: Elec tronically Signed By: Landon iTdwell PA-C\.br\Date and Time Signed: 06/03/23 19:41 EDT\.br\Electronically Co-Signed By: Pedro Pablo Fletcher DO\.br\Date and Time Co-Signed: 06/04/23 01:40 EDT Consent for Treatmenton 05-23 Consent for Treatment [id number]#1.00T IFF Normal [facility] Discharge Instructionson Discharge Instructions [id number]#1.0 0TIFF Normal [facility] ED Clinical Summaryon 2023 ED Clinical Summary [facility] Patient Education Noteon 06-03-2023 ED Patient Education Note Normal [facility] ED Patient Summaryon 024 ED Patient Summary Normal [facility] Alanine aminotransferase [En zymatic activity/volume] in Serum or PlasmaOrdered By: Deb Carmichael on 06-01-2023 ALT [Catalytic activity/Vol] 14 U/L Normal 7-52 [facility] Comment on above: Performed By: #### L IPASE, HEPATIC, BMP, CBC #### [facility] [address] [place] [address] [place] Albumin [Mass/volume] in Ser um or Plasma by Bromocresol green (BCG) dye binding methoOrdered By: Deb Carmichael on 06-01-2023 Albumin BCG dye [Mass/Vol] 4.2 g/dL 3.5-5.7 [facility] Alkaline phosphatase [Enzyma tic activity/volume] in Serum or PlasmaOrdered By: Deb Carmichael on 06-01-2023 ALP [Catalytic activity/Vol] 69 U/L Normal 34-104 [facility] Comment on above: Performed By: #### L IPASE, HEPATIC, BMP, CBC #### [facility] [address] [place] [address] Aspartate aminotransferase [ Enzymatic activity/volume] in Serum or PlasmaOrdered By: Deb Carmichael on 06-01-2023 AST [Catalytic activity/Vol] 16 U/L Normal 13-39 [facility] Comment on above: Result Comment: PERF ORMED BY: [place] [address] PATHOLOGIST RING MAKING 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 JASON WILSON M.D. Performed By: #### C MP, CUBLD, CBC #### [facility] [address] [place] [address] Automated basophil %Ordered By: Deb Carmichael on 06-01-2023 Basophils/100 WBC (Bld) 0.4 % Normal . [facility] Comment on above: Performed By: #### L IPASE, HEPATIC, BMP, CBC #### [facility] [address] [place] [address] Automated basophil countOrde red By: Deb Carmichael on 06-01-2023 Basophils (Bld) [#/Vol] 0.0 10*3/uL Normal 0.0-0.2 [facility] Comment on above: Result Comment: PERF ORMED BY: [place] [address] PATHOLOGIST RING MAKING 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 JASON WILSON M.D. Performed By: #### L IPASE, HEPATIC, BMP, CBC #### [address] Automated blood monocyte cou ntOrdered By: Deb Carmichael on 06-01-2023 Monocytes (Bld) [#/Vol] 0.6 10*3/uL Normal 0.0-0.8 [facility] Comment on above: Performed By: #### L IPASE, HEPATIC, BMP, CBC #### [address] Automated eosinophil %Ordere d By: Deb Carmichael on 06-01-2023 Eosinophils/100 WBC (Bld) 2.6 % Normal . [facility] Comment on above: Performed By: #### L IPASE, HEPATIC, BMP, CBC #### [address] Automated eosinophil countOr dered By: Deb Carmichael on 06-01-2023 Eosinophils (Bld) [#/Vol] 0.3 10*3/uL Normal 0.0-0.45 [facility] Comment on above: Performed By: #### L IPASE, HEPATIC, BMP, CBC #### [address] Automated monocyte %Ordered By: Deb Carmichael on 06-01-2023 Monocytes/100 WBC (Bld) 6.0 % Normal . [facility] Comment on above: Performed By: #### L IPASE, HEPATIC, BMP, CBC #### [address] Automated neutrophil %Ordere d By: Deb Carmichael on 06-01-2023 Neutrophils/100 WBC (Bld) 60.6 % Normal . [facility] Comment on above: Performed By: #### L IPASE, HEPATIC, BMP, CBC #### [address] Automated urine color determ inationOrdered By: PROVIDER TEMP on 06-01-2023 Color (U) Yellow Normal Yellow [facility] Comment on above: Order Comment: Name Collection Type:: Clean-Voided Midstream Performed By: #### C MP, CUBLD, CBC #### [address] Basic Metabolic Panelon Anion gap [Moles/Vol] Not performed Normal 6.0-15.0 [facility] Comment on above: Performed By: #### L IPASE, HEPATIC, BMP, CBC #### [address] Creatinine Clr Calc Pharmacy 122.15 Normal [facility] Comment on above: Performed By: #### L IPASE, HEPATIC, BMP, CBC #### [address] GFR/1.73 sq M.predicted MDRD (S/P/Bld) [Vol rate/Area] mL/min/{1.73_m2} Normal [facility] Comment on above: Performed By: #### L IPASE, HEPATIC, BMP, CBC #### [address] Potassium Normal 3.5-5.1 [facility] Comment on above: Result Comment: Spec imen hemolyzed, redraw requested Performed By: #### L IPASE, HEPATIC, BMP, CBC #### [address] Bilirubin Test strip Ql (U)O rdered By: PROVIDER TEMP on 06-01-2023 Bilirubin Ql (U) Negative Negative [facility] Bilirubin.direct [Mass/volum e] in Serum or PlasmaOrdered By: Deb Carmichael on 06-01-2023 Bilirubin.direct [Mass/Vol] 0.10 mg/dL 0.03-0.18 [facility] Bilirubin.total [Mass/volume ] in Serum or PlasmaOrdered By: Deb Carmichael on 06-01-2023 Bilirubin [Mass/Vol] 0.5 mg/dL Normal 0.3-1.0 [facility] Comment on above: Performed By: #### L IPASE, HEPATIC, BMP, CBC #### [facility] [id number] [facility] CT abdomen pelvis w conon CT abdomen pelvis w con [facility] [place] [id number] Scan Report Signed Patient: Jerad Tracy MR#: [id number] 49 : 1975 Acct:[id number] Age/Sex: 48 / F ADM Date: 06/01/23 Loc: ER Room: Type: [facility] ER Attending Dr: Copies to: Deb Carmichael [...] Idalia Juarez M.D.06/01/2023 3:07 PM Dictation Location: [place] [address] Transcribed By: [facility] 06/01/23 1507 Dictated By: Idalia Juarez MD 06/01/23 1501 Signed By: 06/01/23 1507 Normal [facility] Calcium [Mass/volume] in Ser um or PlasmaOrdered By: Deb Carmichael on 06-01-2023 Calcium [Mass/Vol] 9.0 mg/dL Normal 8.6-10.3 [facility] Comment on above: Performed By: #### L IPASE, HEPATIC, BMP, CBC #### [address] Carbon dioxide, total [Moles /volume] in Serum or PlasmaOrdered By: Deb Carmichael on 06-01-2023 CO2 [Moles/Vol] 25.6 mmol/L Normal 21.0-31.0 [facility] Comment on above: Performed By: #### L IPASE, HEPATIC, BMP, CBC #### [address] Chloride [Moles/volume] in S saw or PlasmaOrdered By: Deb Carmichael on 06-01-2023 Chloride [Moles/Vol] 102 mmol/L Normal 98-107 [facility] Comment on above: Performed By: #### L IPASE, HEPATIC, BMP, CBC #### [facility] [address] [place] [address] [place] Complete Blood Count Auto Di ffon 06-01-2023 Mean Corpuscular HGB Conc 33.9 g/dL Normal 32.0-35.0 [facility] Comment on above: Performed By: #### L IPASE, HEPATIC, BMP, CBC #### [place] [address] [place] Monocytes/100 WBC (Bld) 18.80 % Normal 0.00-20.00 [facility] Comment on above: Performed By: #### L IPASE, HEPATIC, BMP, CBC #### [place] [id number] [place] NRBC% 0.1 /100{WBC} Normal 0-0.5 [facility] Comment on above: Performed By: #### L IPASE, HEPATIC, BMP, CBC #### [facility] [address] [place] [address] Creatinine [Mass/volume] in Serum or PlasmaOrdered By: Deb Carmichael on 06-01-2023 Creatinine [Mass/Vol] 0.64 mg/dL Normal 0.60-1.20 [facility] Comment on above: Performed By: #### L IPASE, HEPATIC, BMP, CBC #### [facility] [address] ECG 12 lead ECGon 06-01-2023 ECG 12 lead ECG [facility] [place] [address] [place] [address] Electrocardiograph Report Signed Patient: Jerad Tracy MR#: [id number] 49 : 1975 Acct:[id number] Age/Sex: 48 / F ADM Date: 06/01/23 Loc: ER Room: Type: [facility] ER Attending Dr: Ordering Provider: Deb Carmichael [...] significant change was found Confirmed by VLAD BHANDARI DO ([id number]) on 06/01/2023 6:34:55 PM Referred By: Electronically Signed By:VLAD BHANDARI DO Transcribed By: MUS Signed By Vlad Bhandari DO [id number] Normal [facility] ED Note-Physicianon 06-01-19 ED Note-Physician Normal [facility] Comment on above: Result Comment: Elec tronically Signed By: BrandonRobert nails PA-C\.br\Date and Time Signed: 05/31/23 18:10 EST\.br\Electronically Co-Signed By: Jorge Mcintosh DO\.br\Date and Time Co-Signed: 06/01/23 07:39 EST Erythrocyte distribution wid th [Ratio] by Automated countOrdered By: Deb Carmichael on 06-01-2023 Erythrocyte distribution width (RBC) [Ratio] 13.4 % Normal 11.9-15.3 [facility] Comment on above: Performed By: #### L IPASE, HEPATIC, BMP, CBC #### [facility] [address] Erythrocytes [#/volume] in B lood by Automated countOrdered By: Deb Carmichael on 06-01-2023 RBC (Bld) [#/Vol] 4.75 10*6/uL Normal 3.60-5.00 [facility] Comment on above: Performed By: #### L IPASE, HEPATIC, BMP, CBC #### [facility] [address] [place] [address] [place] Glucose [Mass/volume] in Ser um or PlasmaOrdered By: Deb Carmichael on 06-01-2023 Glucose [Mass/Vol] 92 mg/dL Normal 70-100 [facility] Comment on above: ADA recommended refe rence rangeRandom Glucose Reference Range is dependent on time and content of last meal. Glucose of more than 200 mg/dL in a nonstressed, ambulatory subject supports the diagnosis of Diabetes Mellitus. Result Comment: [place] om Glucose Reference Range is dependent on time and content of last meal. Glucose of more than 200 mg/dL in a nonstressed, ambulatory subject supports the diagnosis of Diabetes Mellitus. ADA recommended reference range Performed By: #### L IPASE, HEPATIC, BMP, CBC #### [facility] [address] [place] [address] [place] Hematocrit [Volume Fraction] of Blood by Automated countOrdered By: Deb Carmichael on 06-01-2023 Hematocrit (Bld) [Volume fraction] 44.7 % Normal 34.0-46.4 [facility] Comment on above: Performed By: #### L IPASE, HEPATIC, BMP, CBC #### [facility] [address] Hemoglobin [Mass/volume] in BloodOrdered By: Deb Carmichael on 06-01-2023 Hemoglobin (Bld) [Mass/Vol] 15.1 g/dL Normal 11.8-15.4 [facility] Comment on above: Performed By: #### L IPASE, HEPATIC, BMP, CBC #### [facility] [address] [place] [address] Hepatic Panelon 06-01-2023 Albumin [Mass/Vol] 4.2 g/dL Normal 3.5-5.7 [facility] Comment on above: Performed By: #### L IPASE, HEPATIC, BMP, CBC #### [address] Aspartate Amino Transferase Normal 13-39 [facility] Comment on above: Result Comment: Spec imen hemolyzed, redraw requested Performed By: #### L IPASE, HEPATIC, BMP, CBC #### [address] Bilirubin,Direct Normal 0.03-0.18 [facility] Comment on above: Result Comment: Spec imen hemolyzed, redraw requested Performed By: #### L IPASE, HEPATIC, BMP, CBC #### [address] Bilirubin,Indirect Not performed Normal [facility] Comment on above: Performed By: #### L IPASE, HEPATIC, BMP, CBC #### [facility] [address] [place] [address] Ketones Auto test strip (U) [Mass/Vol]Ordered By: PROVIDER TEMP on 06-01-2023 Ketones (U) [Mass/Vol] Negative Negative [facility] Leukocytes [#/volume] correc lisa for nucleated erythrocytes in Blood by Automated counOrdered By: Deb Carmichael on 06-01-2023 WBC corrected for nucl RBC Auto (Bld) [#/Vol] 10.7 10*3/uL 3.8-11.6 [facility] Leukocytes [#/volume] in Blo od by Automated countOrdered By: Deb Carmichael on 06-01-2023 WBC (Bld) [#/Vol] 10.7 10*3/uL Normal 3.8-11.6 [facility] Comment on above: Performed By: #### L IPASE, HEPATIC, BMP, CBC #### [address] Lipase [Enzymatic activity/v olume] in Serum or PlasmaOrdered By: Deb Carmichael on 06-01-2023 Lipase [Catalytic activity/Vol] 13.0 U/L Normal 11.0-82.0 [facility] Comment on above: Result Comment: PERF ORMED BY: [place] [address] PATHOLOGIST RING MAKING 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 JASON WILSON M.D. Performed By: #### U HCG, ADDONUAPLUS #### [place] [address] [place] Lymphocytes [#/volume] in Bl ood by Automated countOrdered By: Deb Carmichael on 06-01-2023 Lymphocytes (Bld) [#/Vol] 3.2 10*3/uL Normal 1.00-4.8 [facility] Comment on above: Performed By: #### L IPASE, HEPATIC, BMP, CBC #### [place] [address] [place] Lymphocytes/100 leukocytes i n Blood by Automated countOrdered By: Deb Carmichael on 06-01-2023 Lymphocytes/100 WBC (Bld) 30.4 % Normal . [facility] Comment on above: Performed By: #### L IPASE, HEPATIC, BMP, CBC #### [facility] [address] [place] [address] [place] MCH [Entitic mass] by Automa lisa countOrdered By: Deb Carmichael on 06-01-2023 MCH (RBC) [Entitic mass] 31.8 pg Normal 24.7-34.3 [facility] Comment on above: Performed By: #### L IPASE, HEPATIC, BMP, CBC #### [facility] [address] MCHC Auto (RBC) [Mass/Vol]Or dered By: Deb Carmichael on 06-01-2023 MCHC (RBC) [Mass/Vol] 33.9 g/dL 32.0-35.0 [facility] MCV [Entitic volume] by Auto mated countOrdered By: Deb Carmichael on 06-01-2023 MCV (RBC) [Entitic vol] 94.0 fL Normal 80-100 [facility] Comment on above: Performed By: #### L IPASE, HEPATIC, BMP, CBC #### [facility] [address] Monocyte distribution width [Entitic volume] in Blood by AutomatedOrdered By: Deb Carmichael on 06-01-2023 Monocyte distribution width Auto (Bld) [Entitic vol] 18.80 % 0.00-20.00 [facility] Neutrophils [#/volume] in Bl ood by Automated countOrdered By: Deb Carmichael on 06-01-2023 Neutrophils (Bld) [#/Vol] 6.5 10*3/uL Normal 1.8-7.7 [facility] Comment on above: Performed By: #### L IPASE, HEPATIC, BMP, CBC #### [facility] [address] Nitrite Test strip Ql (U)Ord ered By: PROVIDER TEMP on 06-01-2023 Nitrite Ql (U) Negative Negative [facility] No Panel InformationOrdered By: Deb Carmichael on 06-01-2023 Estimated GFR (CKD-EPI) > 60.0 mL/Min [facility] Creatinine Clearance (Chem 122.15 [facility] Nucleated erythrocytes [Pres ence] in Blood by Automated countOrdered By: Deb Carmichael on 06-01-2023 Nucleated RBC Auto Ql (Bld) 0.1 /100{WBC} 0-0.5 [facility] Platelet mean volume [Entiti c volume] in Blood by Automated countOrdered By: Deb Carmichael on 06-01-2023 Platelet mean volume (Bld) [Entitic vol] 9.0 fL Normal 6.3-10.7 [facility] Comment on above: Performed By: #### L IPASE, HEPATIC, BMP, CBC #### [facility] [address] Platelets [#/volume] in Bloo d by Automated countOrdered By: Deb Carmichael on 06-01-2023 Platelets (Bld) [#/Vol] 311 10*3/uL Normal 150-450 [facility] Comment on above: Performed By: #### L IPASE, HEPATIC, BMP, CBC #### [address] Potassium [Moles/volume] in Serum or PlasmaOrdered By: Deb Carmichael on 06-01-2023 Potassium [Moles/Vol] 4.2 mmol/L Normal 3.5-5.1 [facility] Comment on above: Performed By: #### C DEYVI PARKINSON, CBC #### [address] Protein Auto test strip (U) [Mass/Vol]Ordered By: MOLLY TEM on 06-01-2023 Protein (U) [Mass/Vol] Negative Negative [facility] Protein [Mass/volume] in Ser um or PlasmaOrdered By: Deb Carmichael on 06-01-2023 Protein [Mass/Vol] 7.9 g/dL Normal 6.4-8.9 [facility] Comment on above: Performed By: #### L IPASE, HEPATIC, BMP, CBC #### [address] Redraw Bilirubin,Directon Redraw Bilirubin,Direct 0.10 mg/dL Normal 0.03-0.18 [facility] Comment on above: Performed By: #### C DEYVI PARKINSON, CBC #### [address] Serum globulin measurement b y calculation (mass/volume)Ordered By: Deb Carmichael on 06-01-2023 Globulin (S) [Mass/Vol] 3.7 g/dL Normal [facility] Comment on above: Performed By: #### L IPASE, HEPATIC, BMP, CBC #### [facility] [address] [place] [address] Serum or plasma albumin/glob ulin mass ratioOrdered By: Deb Carmichael on 06-01-2023 Albumin/Globulin [Mass ratio] 1.1 {ratio} Normal [facility] Comment on above: Performed By: #### L IPASE, HEPATIC, BMP, CBC #### [facility] [address] [place] [address] Serum or plasma anion gap de terminationOrdered By: Deb Carmichael on 06-01-2023 Anion gap [Moles/Vol] [facility] Comment on above: Test not performed Serum or plasma non-glucuron idated bilirubin measurement (mass/volume)Ordered By: Deb Carmichael on 06-01-2023 Bilirubin.indirect [Mass/Vol] [facility] on above: Test not performed Sodium [Moles/volume] in Ser um or PlasmaOrdered By: Deb Carmichael on 06-01-2023 Sodium [Moles/Vol] 136 mmol/L Normal 136-145 [facility] Comment on above: Performed By: #### L IPASE, HEPATIC, BMP, CBC #### [facility] [address] [place] [address] Specific gravity Auto test s trip (U) [Rel density]Ordered By: MOLLY TEMTami on 06-01-2023 Specific gravity (U) [Rel density] 1.015 1.001-1.030 [facility] Troponin I High Sensitivityo n 06-01-2023 Troponin I High Sensitivity 3.5 pg/mL Normal 0.0-15.0 [facility] Comment on above: Result Comment: PERF ORMED BY: [place] [address] PATHOLOGIST RING MAKING 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 JASON WILSON M.D. Performed By: #### C MP, CUBLD, CBC #### [facility] [address] [place] [address] Troponin I.cardiac [Mass/vol ume] in Serum or Plasma by Detection limit <= 0.01 ng/Ordered By: Deb Carmichael on 06-01-2023 Troponin I.cardiac DL <= 0.01 ng/mL [Mass/Vol] 3.5 pg/mL 0.0-15.0 [facility] Urea nitrogen [Mass/volume] in Serum or PlasmaOrdered By: Deb Carmichael on 06-01-2023 Urea nitrogen [Mass/Vol] 18 mg/dL Normal 7-25 [facility] Comment on above: Performed By: #### L IPASE, HEPATIC, BMP, CBC #### [facility] [address] Urinalysison 06-01-2023 Appearance (U) Clear Normal Clear [facility] Comment on above: Order Comment: Name Collection Type:: Clean-Voided Midstream Performed By: #### C MP, CUBLD, CBC #### [facility] [address] Bilirubin,Urine Negative Normal Negative [facility] Comment on above: Order Comment: Name Collection Type:: Clean-Voided Midstream Performed By: #### C MP, CUBLD, CBC #### [address] Glucose Ql (U) Normal Normal Normal [facility] Comment on above: Order Comment: Name Collection Type:: Clean-Voided Midstream Performed By: #### C MP, CUBLD, CBC #### [facility] [address] Ketones Ql (U) Negative Normal Negative [facility] Comment on above: Order Comment: Name Collection Type:: Clean-Voided Midstream Performed By: #### C MP, CUBLD, CBC #### [facility] [address] Leukocyte esterase Test strip Ql (U) Negative Normal Negative [facility] Comment on above: Order Comment: Name Collection Type:: Clean-Voided Midstream Performed By: #### C MP, CUBLD, CBC #### [place] [address] [place] Nitrite,Urine Negative Normal Negative [facility] Comment on above: Order Comment: Name Collection Type:: Clean-Voided Midstream Performed By: #### C DEYVI PARKINSON, CBC #### [place] [address] [place] Occult Blood,Urine Negative Normal Negative [facility] Comment on above: Order Comment: Name Collection Type:: Clean-Voided Midstream Result Comment: PERF ORMED BY: [place] [address] PATHOLOGIST RING MAKING 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 JASON WILSON M.D. Performed By: #### C DEYVI PARKINSON, CBC #### [place] [address] [place] Protein,Urine Negative Normal Negative [facility] Comment on above: Order Comment: Name Collection Type:: Clean-Voided Midstream Performed By: #### C DEYVI PARKINSON, CBC #### [place] [address] [place] Specificy [place],Urine 1.015 Normal 1.001-1.030 [facility] Comment on above: Order Comment: Name Collection Type:: Clean-Voided Midstream Performed By: #### C DEYVI PARKINSON, CBC #### [place] [address] [place] Urobilinogen,Urine Normal Normal Normal [facility] Comment on above: Order Comment: Name Collection Type:: Clean-Voided Midstream Performed By: #### C DEYVI PARKINSON, CBC #### [place] [address] [place] Urine clarity by refractomet ry automatedOrdered By: PROVIDER TEMP on 06-01-2023 Clarity Refractometry automated (U) Clear Clear [facility] Urine glucose measurement by automated test strip (mass/volume)Ordered By: PROVIDER TEMP on 06-01-2023 Glucose Auto test strip (U) [Mass/Vol] Normal mg/dL Normal [facility] Urine hemoglobin detection b y automated test stripOrdered By: PROVIDER TEMP on 06-01-2023 Hemoglobin Auto test strip Ql (U) Negative Negative [facility] Urine leukocyte esterase det ection by automated test stripOrdered By: PROVIDER TEMP on 06-01-2023 Leukocyte esterase Auto test strip Ql (U) Negative Negative [facility] Urine pH measurement by auto mated test stripOrdered By: PROVIDER TEMP on 06-01-2023 pH (U) 7.0 [pH] Normal 5.0-9.0 [facility] Comment on above: Order Comment: Name Collection Type:: Clean-Voided Midstream Performed By: #### C MP, CUBLD, CBC #### [address] Urobilinogen Auto test strip (U) [Mass/Vol]Ordered By: PROVIDER TEMP on 06-01-2023 Urobilinogen (U) [Mass/Vol] Normal mg/dL Normal [facility] XR chest 2V*on 06-01-2023 XR chest 2V* [facility] [place] [address] [place] [address] XRay Report Signed Patient: Jerad Tracy MR#: [id number] 49 : 1975 Acct:[id number] Age/Sex: 48 / F ADM Date: 06/01/23 Loc: ER Room: Type: [facility] ER Attending Dr: Copies to: Deb Carmichael [...] Idalia Juarez M.D.06/01/2023 5:24 PM Dictation Location: [place] [address] Transcribed By: BRYCE 06/01/23 1724 Dictated By: Idalia Juarez MD 06/01/23 1723 Signed By: 06/01/23 1724 Normal [facility] BMPOrdered By: SYSTEM SYSTEM on 05-31-2023 Anion gap [Moles/Vol] 11 mmol/L Normal 6-16 Rem [facility] Comment on above: Performed By: #### 1 5129424, 8721429, 6701281, 5917021, 4421155, [id number] ####[facility] [id number] [place] [address] Calcium [Mass/Vol] 9.0 mg/dL Normal 8.9-11.1 [facility] Comment on above: Performed By: #### 1 5336900, 3894141, 3133180, 6544147, 0547305, 26119465 ####[address] [place] [address] Chloride [Moles/Vol] 104 mmol/L Normal 101-111 [facility] Comment on above: Performed By: #### 1 4858012, 1404478, 3199418, 0279155, 5612419, 79056258 ####[facility] [address] [place] [address] CO2 [Moles/Vol] 27 mmol/L Normal 21-31 [facility] Comment on above: Performed By: #### 1 1722563, 4424961, 5135580, 6453464, 1295977, 55330882 ####[address] [place] [address] Creatinine [Mass/Vol] 0.7 mg/dL Normal 0.5-1.3 [facility] Comment on above: Performed By: #### 1 7231699, 9364044, 6742868, 0673933, 7060969, 99951118 ####[facility] [address] [place] [address] Glucose [Mass/Vol] 97 mg/dL Normal 55-199 [facility] Comment on above: Performed By: #### 1 8383850, 4545389, 7536813, 0239262, 8208084, 52599641 ####[address] [address] Potassium [Moles/Vol] 3.7 mmol/L Normal 3.5-5.3 [facility] Comment on above: Performed By: #### 1 7006637, 4465681, 3153972, 9599436, 6436549, 66128201 ####[address] [address] Sodium [Moles/Vol] 138 mmol/L Normal 135-145 [facility] Comment on above: Performed By: #### 1 4440826, 0651975, 3300843, 4965500, 7141274, 18781239 ####[address] [address] Urea nitrogen [Mass/Vol] 15 mg/dL Normal 5-21 [facility] Comment on above: Performed By: #### 1 9644714, 6287467, 9244948, 1537103, 2040602, 14569250 ####[address] [address] BMPon 05-31-2023 Urea nitrogen/Creatinine [Mass ratio] 21 No Units High 10-20 [facility] Comment on above: Performed By: #### 1 9716914, 6957173, 8722516, 0780329, 8715441, 54740122 ####[address] [address] CBC w/ Auto DiffOrdered By: SYSTEM SYSTEM on 05-31-2023 Basophils/100 WBC (Bld) 0.5 % Normal 0.0-2.0 [facility] Comment on above: Performed By: #### 1 2735201, 4186515, 1537964, 5397440, 0218591, 16970380 ####[address] [address] Basophils/Leukocytes Auto (Bld) [Pure # fraction] 0.1 E9/L Normal 0.0-0.2 [facility] Comment on above: Performed By: #### 1 8584220, 3684539, 8975773, 9759453, 7906051, 56335270 ####[address] [address] Eosinophils (Bld) [#/Vol] 0.2 E9/L Normal 0.0-0.5 [facility] Comment on above: Performed By: #### 1 9851711, 7957204, 2465881, 3533775, 3408457, 58638486 ####[address] [address] Eosinophils/100 WBC (Bld) 2.1 % Normal 0.0-8.0 [facility] Comment on above: Performed By: #### 1 5490239, 6907006, 3621899, 1026758, 5827303, 28952319 ####[address] [address] Erythrocyte distribution width (RBC) [Ratio] 13.4 % Normal 10.9-14.2 [facility] Comment on above: Performed By: #### 1 9854808, 3228720, 2568986, 4972274, 8498723, 86392924 ####[place] [address] Hematocrit (Bld) [Volume fraction] 41.8 % Normal 34.0-46.0 [facility] Comment on above: Performed By: #### 1 8372043, 4381223, 4865033, 3250016, 8461979, 03309996 ####[address] [address] Hemoglobin (Bld) [Mass/Vol] 13.9 g/dL Normal 12.0-16.0 [facility] Comment on above: Performed By: #### 1 0867746, 9930485, 7363679, 0491835, 8081601, 02238950 ####[address] [address] Lymphocytes (Bld) [#/Vol] 3.6 E9/L Normal 1.0-4.0 [facility] Comment on above: Performed By: #### 1 8765351, 5192848, 1198960, 5254042, 7138065, 62548598 ####[address] [place] [address] Lymphocytes/100 WBC (Bld) 32.1 % Normal 14.0-50.0 [facility] Comment on above: Performed By: #### 1 6390602, 8266730, 6510204, 9009876, 5143982, 51950983 ####[place] [address] MCH (RBC) [Entitic mass] 31.4 pg Normal 27.0-34.0 [facility] Comment on above: Performed By: #### 1 1948856, 7648671, 0889715, 8091554, 7988373, 54084691 ####[address] [place] [address] MCHC (RBC) [Mass/Vol] 33.3 g/dL Normal 31.4-36.0 [facility] Comment on above: Performed By: #### 1 1119050, 5732392, 9897430, 6911660, 7366559, 78184919 ####[place] [address] MCV (RBC) [Entitic vol] 94.1 fL Normal 80.0-100.0 [facility] Comment on above: Performed By: #### 1 0776647, 5771071, 1903441, 0513643, 3541315, 54182758 ####[address] [place] [address] Monocytes (Bld) [#/Vol] 0.6 E9/L Normal 0.2-1.0 [facility] Comment on above: Performed By: #### 1 6672254, 6794057, 8353004, 2118746, 5371813, 52774480 ####[address] [address] Neutrophils (Bld) [#/Vol] 6.8 E9/L Normal 2.0-7.5 [facility] Comment on above: Performed By: #### 1 7675639, 2424174, 3018811, 1610584, 2380408, 97623651 ####[address] [place] [address] Neutrophils/100 WBC (Bld) 59.6 % Normal 36.0-75.0 [facility] Comment on above: Performed By: #### 1 0028472, 1808429, 8876333, 1205958, 0126542, 01154645 ####[address] [place] [address] Platelet mean volume (Bld) [Entitic vol] 9.2 fL Normal 6.4-10.8 [facility] Comment on above: Performed By: #### 1 3208951, 3259604, 5068412, 0798107, 3639691, 08442339 ####[place] [place] [address] Platelets (Bld) [#/Vol] 271.0 E9/L Normal 150.0-500.0 [facility] Comment on above: Performed By: #### 1 3834589, 5450588, 4543562, 4180492, 2417514, 96436378 ####[place] [place] [address] RBC (Bld) [#/Vol] 4.4 E12/L Normal 4.3-5.9 [facility] Comment on above: Performed By: #### 1 6538780, 7825185, 1195005, 7834293, 1653754, 05644441 ####[address] [address] WBC corrected for nucl RBC Auto (Bld) [#/Vol] 11.4 E9/L High 4.0-11.0 [facility] Comment on above: Performed By: #### 1 7492947, 7515567, 6191456, 2648687, 7138341, 99928800 ####[address] [place] [address] CHEMISTRYOrdered By: SYSTEM SYSTEM on 05-31-2023 Albumin/Globulin [...] 33.3 s Normal 25.1 - 36.5 second(s) [facility] [place] Auto Coag Comment [...] the same coagulation reagent and instrumentation as [facility] [place]. Currently there are no coagulation studies available worldwide for children to 14 days, and no normal ranges. Heparin therapeutic range (represented by Anti-Factor Xa activity of 0.2 - 0.4 U/mL) corresponds to PTT of 56.6 - 109.0 sec. PT Coag (PPP) [Time] 10.8 s Normal 9.4 - 1 2.5 second(s) [facility] Auto Coag Comment [...] the same coagulation reagent and instrumentation as [facility] [place]. Currently there are no coagulation studies available worldwide for children to 14 days, and no normal ranges. Consent for Treatmenton Consent for Treatment [id number]#1.00T IFF Normal [facility] Discharge Instructionson Discharge Instructions [id number]#1.00 TIFF Normal [facility] ED Clinical Summaryon 2023 ED Clinical Summary Normal [facility] ED Patient Education Noteon 05-31-2023 ED Patient Education Note Normal [facility] ED Patient Summaryon 024 ED Patient Summary Normal [facility] HEMATOLOGYOrdered By: SYSTEM SYSTEM on 05-31-2023 Monocytes/100 WBC (Bld) 5.7 % Normal 4.0 - 14.0 % Remisol Heme Hep Func PanelOrdered By: [employer] SYSTEM on 05-31-2023 Albumin [Mass/Vol] 4.1 g/dL Normal 3.3-5.0 Remiso l Chem Comment on above: Performed By: #### 1 6485554, 4832223, 0930107, 3301416, 5540401, 52709894 ####[facility] [address] [place] [address] Bilirubin [Mass/Vol] 0.4 mg/dL Normal 0.0-1.1 Donnie diego Chem Comment on above: Performed By: #### 1 4090024, 1674039, 3576463, 8988926, 2357275, 51329190 ####[facility] [address] [place] [address] Bilirubin.direct [Mass/Vol] 0.1 mg/dL Normal 0.0-0.4 Remisol Chem Comment on above: Performed By: #### 1 6534846, 3922110, 7188477, 7231978, 7382233, 69080517 ####[address] [address] Bilirubin.indirect [Mass or moles/Vol] 0.3 mg/dL Normal 0.1-0.9 Remisol Chem Comment on above: Performed By: #### 1 0097859, 5198464, 4292042, 1666332, 5378468, 12672933 ####[address] [address] Globulin (S) [Mass/Vol] 3.1 g/dL Normal 1.4-4.0 Remisol Chem Comment on above: Performed By: #### 1 3871187, 0239843, 1671538, 1374860, 1070264, 80800952 ####[address] [address] Protein [Mass/Vol] 7.2 g/dL Normal 6.0-7.8 Remiso l Chem Comment on above: Performed By: #### 1 7477960, 6509990, 0626108, 8004613, 5893892, 59771166 ####[address] [address] Hep Func Panelon 05-31-2023 Albumin/Globulin (S) [Mass conc ratio] 1.3 Normal 1.1-2.2 [facility] Comment on above: Performed By: #### 1 0354170, 3813465, 2742394, 0739347, 7497411, 59536054 ####[address] [address] ALP [Catalytic activity/Vol] 72 Int._Unit/L Normal 21-98 [facility] Comment on above: Performed By: #### 1 6356952, 6819075, 9347692, 8699896, 8291217, 65619323 ####[address] [address] ALT No additional P-5'-P [Catalytic activity/Vol] 13 Int._Unit/L Normal 6-46 [facility] Comment on above: Performed By: #### 1 2321958, 6060934, 6772760, 2800269, 0940678, 84255373 ####[facility] [address] [place] [address] AST [Catalytic activity/Vol] 14 Int._Unit/L Normal 5-43 [facility] Comment on above: Performed By: #### 1 1367307, 6163282, 9417123, 4658724, 6407918, 87306953 ####[facility] [address] [place] [address] Lipase LevelOrdered By: [employer] SYSTEM on 05-31-2023 Lipase [Catalytic activity/Vol] 10 U/L Low 13-58 Remisol Chem Comment on above: Performed By: #### 1 1299913, 5062998, 3537897, 0795829, 8391987, 17977483 ####[facility] [address] [place] [address] PT & PTTon 05-31-2023 aPTT Coag (PPP) [Time] 33.3 second(s) Normal 25.1-36.5 [facility] Comment on above: Result Comment: Para meter [...] the same coagulation reagent and instrumentation as [facility] [place]. Currently there are no coagulation studies available worldwide for children to 14 days, and no normal ranges. Heparin therapeutic range (represented by Anti-Factor Xa activity of 0.2 - 0.4 U/mL) corresponds to PTT of 56.6 - 109.0 sec. Performed By: #### 1 1791041, 0229339, 4958987, 0975055, 6057617, 61297367 ####[facility] [address] [place] [address] PT Coag (PPP) [Time] 10.8 second(s) Normal 9.4-12.5 [facility] Comment on above: Result Comment: 15 d [...] the same coagulation reagent and instrumentation as [facility] [place]. Currently there are no coagulation studies available worldwide for children to 14 days, and no normal ranges. Performed By: #### 1 5084326, 0219373, 9358948, 5379213, 7872938, 77512561 ####[facility] [address] [place] [address] PT & PTTOrdered By: Zoë mosquera on 05-31-2023 INR Coag (PPP) [Relative time] 0.96 {INR} Invalid Interpretation Code [facility] [facility] Auto Coag Comment [...] 3.0 ? 4.5 Performed By: #### 1 1984241, 7172314, 1973347, 3484385, 3759030, 74893796 ####[facility] [address] [place] [address] UA With Cult Reflexon 2023 Bacteria LM Ql (Urine sed) TRACE Normal Trace [facility] Comment on above: Performed By: #### 1 2919824 ####[facility] [address] [place] [address] Bilirubin Ql (U) Negative Normal Negative [facility] Comment on above: Performed By: #### 1 3684668 ####[facility] [address] [place] [address] Clarity (U) CLOUDY Abnormal Clear [facility] Comment on above: Performed By: #### 1 8088290 ####[address] [place] [address] Color (U) YELLOW Normal Yellow [facility] Comment on above: Performed By: #### 1 8184406 ####[facility] [address] [place] [address] Crystals LM Ql (Urine sed) Present Normal [facility] Comment on above: Performed By: #### 1 2452767 ####[facility] [address] [place] [address] Epithelial cells.squamous LM.HPF (Urine sed) [#/Area] 0-2 Normal 0-2 [facility] Comment on above: Performed By: #### 1 0823114 ####[facility] [address] [place] [address] Glucose Test strip (U) [Mass/Vol] Negative Normal Negative [facility] Comment on above: Performed By: #### 1 1229635 ####[facility] [address] [place] [address] Hemoglobin Ql (U) Negative Normal Negative [facility] Comment on above: Performed By: #### 1 2199717 ####[facility] [address] [place] [address] Ketones (U) [Mass/Vol] Negative Normal Negative [facility] Comment on above: Performed By: #### 1 7077792 ####[address] [address] [place].plasma/[place] .RBC (Bld) [Mass ratio] 0-3 Normal 0-3 [facility] Comment on above: Performed By: #### 1 6074841 ####[address] [address] Nitrite Ql (U) Negative Normal Negative [facility] Comment on above: Performed By: #### 1 9090718 ####[address] [address] pH (U) 8.0 [pH] Invalid Interpretation Code 5.0-9.0 [facility] Comment on above: Performed By: #### 1 0444269 ####[address] [address] Protein (U) [Mass/Vol] Negative Normal Negative [facility] Comment on above: Performed By: #### 1 4542694 ####[address] [address] Specific gravity (U) [Rel density] 1.015 Invalid Interpretation Code 1.005-1.030 [facility] Comment on above: Performed By: #### 1 0745315 ####[address] [address] Type of Urine collection method Clean Catch Normal [facility] Comment on above: Performed By: #### 1 2858704 ####[address] [address] Urobilinogen Qn (U) 0.2 {Jan'U}/dL Normal 0.0-1.0 [facility] Comment on above: Performed By: #### 1 4872127 ####[address] [address] WBC Auto Ql (U) Negative Normal Negative [facility] Comment on above: Performed By: #### 1 2235106 ####[address] [address] WBC LM.HPF (Urine sed) [#/Area] 0-5 Normal 0-5 [facility] Comment on above: Performed By: #### 1 6491011 ####[facility] [address] [place] [address] URINALYSISOrdered By: Zoë gordon on 05-31-2023 Bacteria [...] PM) Normal Negative [facility] UA Auto SS [place].plasma/[place] .RBC (Bld) [Mass ratio] 0-3 /HPF Normal [...] [facility] UA Auto SS Urobilinogen Qn (U) 0.5956076 {Jan'U}/dL Normal 0.0 - 1.0 EU/dL [facility] UA Auto SS WBC Auto Ql (U) Negative (05/31/23 4:53 PM) Normal Negative [facility] UA Auto SS WBC LM.HPF (Urine sed) [#/Area] 0-5 /HPF Normal 0-5/HPF [facility] UA Auto SS eGFROrdered By: SYSTEM SYSTE M on 05-31-2023 eGFR 108 mL/min/1.73 m2 Normal >=59 Remiso l [facility] Comment on above: Order Comment: Order added by Discern Expert. Performed By: #### 1 3751181, 1255101, 2494175, 4757534, 6272887, 47130903 ####[facility] [address] [place] [address] ED Note-Physicianon 05-27-19 ED Note-Physician Normal [facility] Comment on above: Result Comment: Elec tronically Signed By: Susu Lamar PA-C\.br\Date and Time Signed: 05/26/23 21:33 EST\.br\Electronically Co-Signed By: Pedro Pablo Fletcher DO\.br\Date and Time Co-Signed: 05/27/23 00:01 EST Consent for Treatmenton Consent for Treatment [id number]#1.00T IFF Normal [facility] ED Clinical Summaryon 2023 ED Clinical Summary Normal Osbaldo martinez [facility] ED Patient Education Noteon 05-26-2023 ED Patient Education Note Normal [facility] ED Patient Summaryon 024 ED Patient Summary Normal [facility] UA With Cult Reflexon 2023 Bilirubin Ql (U) Negative Normal Negative [facility] Comment on above: Performed By: #### 1 4773482 ####[facility] [address] [place] [address] Clarity (U) CLEAR Normal Clear [facility] Comment on above: Performed By: #### 1 0350867 ####[address] [address] Color (U) YELLOW Normal Yellow [facility] Comment on above: Performed By: #### 1 3373984 ####[address] [address] Epithelial cells.squamous LM.HPF (Urine sed) [#/Area] 0-2 Normal 0-2 [facility] Comment on above: Performed By: #### 1 4227391 ####[address] [address] Glucose Test strip (U) [Mass/Vol] Negative Normal Negative [facility] Comment on above: Performed By: #### 1 6149238 ####[address] [address] Hemoglobin Ql (U) Negative Normal Negative [facility] Comment on above: Performed By: #### 1 9565436 ####[address] [address] Ketones (U) [Mass/Vol] Negative Normal Negative [facility] Comment on above: Performed By: #### 1 0563683 ####[address] [address] [place].plasma/[place] .RBC (Bld) [Mass ratio] 0-3 Normal 0-3 [facility] Comment on above: Performed By: #### 1 6792913 ####[address] [address] Nitrite Ql (U) Negative Normal Negative [facility] Comment on above: Performed By: #### 1 7915833 ####[address] [address] pH (U) 6.5 [pH] Invalid Interpretation Code 5.0-9.0 [facility] Comment on above: Performed By: #### 1 8647553 ####[address] [address] Protein (U) [Mass/Vol] Negative Normal Negative [facility] Comment on above: Performed By: #### 1 0724758 ####[facility] [address] [place] [address] Specific gravity (U) [Rel density] 1.020 Invalid Interpretation Code 1.005-1.030 [facility] Comment on above: Performed By: #### 1 3272782 ####[facility] [address] [place] [address] Type of Urine collection method Clean Catch Normal [facility] Comment on above: Performed By: #### 1 9123038 ####[address] [address] Urobilinogen Qn (U) 0.2 {Jan'U}/dL Normal 0.0-1.0 [facility] Comment on above: Performed By: #### 1 8753339 ####[address] [address] WBC Auto Ql (U) Negative Normal Negative [facility] Comment on above: Performed By: #### 1 9870429 ####[facility] [address] [place] [address] WBC LM.HPF (Urine sed) [#/Area] 0-5 Normal 0-5 [facility] Comment on above: Performed By: #### 1 2550695 ####[address] [address] URINALYSISOrdered By: Alfonso Hernandez on 05-26-2023 Bilirubin Ql (U) Negative (05/26/23 8:20 PM) Normal Negative [facility] UA Auto SS Clarity (U) Clear (05/26/23 8:20 PM) Normal Clear [facility] UA Auto SS Color (U) Yellow (05/26/23 8:20 PM) Normal Yellow [facility] UA Auto SS Epithelial cells.squamous LM.HPF (Urine sed) [#/Area] 0-2 /HPF Normal 0-2/HPF [facility] UA Aut o SS Glucose Test strip (U) [Mass/Vol] Negative (05/26/23 8:20 PM) Normal Negative [facility] UA Auto SS Hemoglobin Ql (U) Negative (05/26/23 8:20 PM) Normal Negative [facility] UA Auto SS Ketones (U) [Mass/Vol] Negative (05/26/23 8:20 PM) Normal Negative [facility] UA Auto SS [place].plasma/[place] .RBC (Bld) [Mass ratio] 0-3 /HPF Normal [...] PM) Invalid Interpretation Code 1.005 - 1.030 [facility] UA Auto SS UA Spec Desc Clean Catch (05/26/23 8:20 PM) Normal [facility] UA Auto SS Urobilinogen Qn (U) 0.3896932 {Jan'U}/dL Normal 0.0 - 1.0 EU/dL [facility] UA Auto SS WBC Auto Ql (U) Negative (05/26/23 8:20 PM) Normal Negative [facility] UA Auto SS WBC LM.HPF (Urine sed) [#/Area] 0-5 /HPF Normal 0-5/HPF [facility] UA Auto SS ED Note-Physicianon 05-25-19 ED Note-Physician Normal [facility] Comment on above: Result Comment: Elec tronically Signed By: Landon Tidwell PA-C\.br\Date and Time Signed: 05/24/23 23:15 EST\.br\Electronically Co-Signed By: Pedro Pablo Fletcher DO\.br\Date and Time Co-Signed: 05/25/23 01:59 EST XR Spine Lumbosacral 2 or 3 Viewson 05-25-2023 XR Spine Lumbosacral 2 or 3 Views Normal [facility] Consent for Treatmenton Consent for Treatment [id number]#1.00T IFF Normal [facility] Discharge Instructionson Discharge Instructions [id number]#1.00TI FF Normal [facility] ED Clinical Summaryon 2023 ED Clinical Summary Normal Osbaldo martinez [facility] ED Patient Education Noteon 05-24-2023 ED Patient Education Note Normal [facility] ED Patient Summaryon 024 ED Patient Summary Normal [facility] Hand / UE Inj/Asp: R thumb [...] to verify the correct patient, procedure, equipment, client support administrator and site/side marked as required. Patient was prepped and draped in the usual sterile fashion. [facility] Work Phone: [facility] Work Phone: XR WRIST RIGHT 3+ VIEWSon XR WRIST RIGHT 3+ VIEWS Interpreted By: Belkis Hernandez, STUDY: XR WRIST RIGHT 3+ VIEWS; ; 05/20/2023 8:00 am INDICATION: Signs/Symptoms:Pain. ACCESSION NUMBER(S): [id number] ORDERING CLINICIAN: BELKIS HERNANDEZ FINDINGS: X-rays of the right wrist show no acute fracture or dislocation. Right thumb [facility] arthritis. Signed by: Belkis Hernandez 05/20/2023 3:12 PM Dictation workstation: [id number] [facility] Ambulatory ED Note-Physicianon 05-17-19 ED Note-Physician Normal [facility] Comment on above: Result Comment: Elec tronically Signed By: Robert Taylor PA-C\.br\Date and Time Signed: 05/14/23 11:56 EST\.br\Electronically Co-Signed By: Jorge Mcintosh DO\.br\Date and Time Co-Signed: 05/17/23 08:07 EST Correction Documentson 05-17-2023 Correction Documents [id number]#1.0 0TIFF [facility] Consent for Treatmenton 04-26 Consent for Treatment [id number]#1.00T IFF Normal [facility] Discharge Instructionson Discharge Instructions [id number]#1.00T IFF Normal [facility] ED Clinical Summaryon 2023 ED Clinical Summary Normal [facility] ED Note-Physicianon 05-16-19 ED Note-Physician Normal [facility] Comment on above: Result Comment: Elec tronically Signed By: Rboert Taylor PA-C\.br\Date and Time Signed: 05/16/23 16:54 EST\.br\Electronically Co-Signed By: Nikhil Tubbs DO.br\Date and Time Co-Signed: 05/16/23 17:00 EST ED Patient Education Noteon 05-16-2023 ED Patient Education Note Normal [facility] ED Patient Summaryon 024 ED Patient Summary Normal [facility] Consent for Treatmenton 04-26 Consent for Treatment [id number]#1.00T IFF Normal [facility] Discharge Instructionson Discharge Instructions [id number]#1.0 0TIFF Normal [facility] ED Clinical Summaryon 2023 ED Clinical Summary Normal [facility] ED Patient Education Noteon 05-14-2023 ED Patient Education Note Normal [facility] ED Patient Summaryon 024 ED Patient Summary Normal [facility] ED Note-Physicianon 05-13-19 ED Note-Physician Normal [facility] Comment on above: Result Comment: Elec tronically Signed By: Landon Tidwell PA-C\.br\Date and Time Signed: 05/11/23 17:24 EST\.br\Electronically Co-Signed By: Belia Mcintosh DO.br\Date and Time Co-Signed: 05/13/23 07:06 EST Consent for Treatmenton 04-25 Consent for Treatment [id number]#1.00T IFF Normal [facility] Discharge Instructionson Discharge Instructions [id number]#1.00 TIFF Normal [facility] ED Clinical Summaryon 2023 ED Clinical Summary Normal [facility] ED Note-Physicianon 05-12-19 ED Note-Physician [facility] Comment on above: Result Comment: Elec tronically Signed By: Nikhil Tubbs DO.br\Date and Time Signed: 05/12/23 11:06 EST ED Patient Education Noteon 05-12-2023 ED Patient Education Note Normal [facility] ED Patient Summaryon 024 ED Patient Summary Normal [facility] Consent for Treatmenton 04-25 Consent for Treatment [id number]#1.00T IFF Normal [facility] Discharge Instructionson Discharge Instructions [id number]#1.00T IFF Normal [facility] ED Clinical Summaryon 2023 ED Clinical Summary Normal Osbaldo martinez [facility] ED Patient Education Noteon 05-11-2023 ED Patient Education Note Normal [facility] ED Patient Summaryon 024 ED Patient Summary Normal [facility] XR Hand 3+ Views Righton XR Hand 3+ Views Right Normal Jose [facility] XR Wrist 3+ Views Righton XR Wrist 3+ Views Right Normal [facility] ED Note-Physicianon 05-09-19 ED Note-Physician Normal [facility] Comment on above: Result Comment: Elec tronically Signed By: Landon Tidwell PA-C\.br\Date and Time Signed: 05/08/23 14:03 EST\.br\Electronically Co-Signed By: Balbina Bryant M.D.\.br\Date and Time Co-Signed: 05/09/23 07:48 EST BMPon 05-08-2023 Anion gap [Moles/Vol] 12 mmol/L Normal 6-16 [facility] Comment on above: Performed By: #### 1 0791555, 9492085, 4336912, 8652090, 0609579 ####[facility] [address] [place] [address] BUN/Creat Ratio 21 No Units High 10-20 [facility] Comment on above: Performed By: #### 1 9748177, 0605812, 9809746, 1229973, 0950422 ####[facility] [address] [place] [address] Calcium [Mass/Vol] 8.4 mg/dL Low 8.9-11.1 [facility] Comment on above: Performed By: #### 1 2996256, 1775714, 8047700, 1524382, 0250577 ####[facility] [address] [place] [address] Chloride [Moles/Vol] 105 mmol/L Normal 101-111 [facility] Comment on above: Performed By: #### 1 9660844, 9755495, 4379193, 1789736, 8188469 ####[facility] [address] [place] [address] CO2 [Moles/Vol] 24 mmol/L Normal 21-31 [facility] Comment on above: Performed By: #### 1 8526600, 4558711, 7592231, 0372779, 2036650 ####[facility] [address] [place] [address] Creatinine [Mass/Vol] 0.7 mg/dL Normal 0.5-1.3 [facility] Comment on above: Performed By: #### 1 2922084, 3538724, 3567748, 8198486, 8130148 ####[facility] [address] [place] [address] Glucose [Mass/Vol] 107 mg/dL Normal 55-199 [facility] Comment on above: Performed By: #### 1 3964911, 3507929, 8347001, 3719380, 9950262 ####[address] [place] [address] Potassium [Moles/Vol] 4.1 mmol/L Normal 3.5-5.3 [facility] Comment on above: Performed By: #### 1 4506188, 8503895, 0787703, 5151676, 8313356 ####[facility] [address] [place] [address] Sodium [Moles/Vol] 137 mmol/L Normal 135-145 [facility] Comment on above: Performed By: #### 1 9444284, 2480288, 9934312, 2488795, 9781035 ####[facility] [address] [place] [address] Urea nitrogen [Mass/Vol] 15 mg/dL Normal 5-21 [facility] Comment on above: Performed By: #### 1 6446283, 5901778, 9343593, 7806017, 7797586 ####[address] [address] CBC w/ Auto Diffon 4 Basophil Absolute 0.1 E9/L Normal 0.0-0.2 [facility] Comment on above: Performed By: #### 1 5282499, 3288804, 2037642, 9276824, 3363469 ####[address] [address] Basophils/100 WBC (Bld) 0.8 % Normal 0.0-2.0 [facility] Comment on above: Performed By: #### 1 6144753, 9340912, 6449761, 7110791, 3550965 ####[address] [address] Eos Absolute 0.2 E9/L Normal 0.0-0.5 [facility] Comment on above: Performed By: #### 1 7931574, 8888810, 6367169, 7990050, 9549510 ####[address] [address] Eosinophils/100 WBC (Bld) 2.0 % Normal 0.0-8.0 [facility] Comment on above: Performed By: #### 1 6573553, 5546480, 4274302, 4616181, 0349085 ####[address] [address] Erythrocyte distribution width (RBC) [Ratio] 13.1 % Normal 10.9-14.2 [facility] Comment on above: Performed By: #### 1 5735493, 8930701, 5208734, 7556110, 6366286 ####[address] [address] Hematocrit (Bld) [Volume fraction] 44.0 % Normal 34.0-46.0 [facility] Comment on above: Performed By: #### 1 4778491, 3497284, 4100387, 6567558, 2911071 ####[facility] [address] [place] [address] Hemoglobin (Bld) [Mass/Vol] 15.0 g/dL Normal 12.0-16.0 [facility] Comment on above: Performed By: #### 1 1082766, 3675362, 6428937, 1802444, 2840992 ####[facility] [address] [place] [address] Lymph Absolute 3.1 E9/L Normal 1.0-4.0 [facility] Comment on above: Performed By: #### 1 0822915, 5309800, 6235974, 0954537, 6726153 ####[address] [address] Lymphocytes/100 WBC (Bld) 35.0 % Normal 14.0-50.0 [facility] Comment on above: Performed By: #### 1 7144159, 8422094, 6470563, 1188560, 1748377 ####[address] [address] MCH (RBC) [Entitic mass] 32.2 pg Normal 27.0-34.0 [facility] Comment on above: Performed By: #### 1 4911233, 2145290, 4607253, 9115815, 5094775 ####[address] [address] MCHC (RBC) [Mass/Vol] 34.3 g/dL Normal 31.4-36.0 [facility] [facility] Comment on above: Performed By: #### 1 9174794, 7196337, 0803524, 7743049, 5851683 ####[address] [address] MCV (RBC) [Entitic vol] 94.0 fL Normal 80.0-100.0 [facility] Comment on above: Performed By: #### 1 3095666, 0484078, 6517274, 8881438, 6339159 ####[address] [place] [address] [place] Absolute 0.6 E9/L Normal 0.2-1.0 [facility] Comment on above: Performed By: #### 1 8254230, 8874509, 6579138, 6931035, 7487308 ####[address] [address] Monocytes/100 WBC (Bld) 6.9 % Normal 4.0-14.0 [facility] Comment on above: Performed By: #### 1 5804168, 9386738, 7912253, 4030683, 8779890 ####[address] [address] Neutro Absolute 5.0 E9/L Normal 2.0-7.5 [facility] Comment on above: Performed By: #### 1 0014489, 7730771, 1232302, 9975198, 2021308 ####[address] [address] Neutro Auto 55.3 % Normal 36.0-75.0 [facility] Comment on above: Performed By: #### 1 9389333, 1741935, 8679932, 5198741, 9224086 ####[address] [address] Platelet 279.0 E9/L Normal 150.0-500.0 [facility] Comment on above: Performed By: #### 1 0992860, 4484632, 4257685, 3657455, 7343941 ####[address] [address] Platelet mean volume (Bld) [Entitic vol] 9.1 fL Normal 6.4-10.8 [facility] Comment on above: Performed By: #### 1 5584650, 8059477, 7705839, 7065079, 4434451 ####[facility] [address] [place] [address] RBC 4.7 E12/L Normal 4.3-5.9 [facility] Comment on above: Performed By: #### 1 6202432, 9025187, 5119569, 0139198, 8846784 ####[facility] [address] [place] [address] WBC 9.0 E9/L Normal 4.0-11.0 [facility] Comment on above: Performed By: #### 1 2931014, 2889139, 4692872, 7304701, 7078150 ####[facility] [address] [place] [address] CHEMISTRYOrdered By: SYSTEM SYSTEM on 05-08-2023 Albumin [...] for Treatmenton 04-25 Consent for Treatment [id number]#1.00T IFF Normal [facility] Discharge Instructionson Discharge Instructions [id number]#1.00 TIFF Normal [facility] ED Clinical Summaryon 2023 ED Clinical Summary Normal [facility] ED Patient Education Noteon 05-08-2023 ED Patient Education Note Normal [facility] ED Patient Summaryon 024 ED Patient Summary Normal [facility] HEMATOLOGYOrdered By: SYSTEM SYSTEM on 05-08-2023 Basophil [...] Normal 80.0 - 100.0 fL Remisol Heme [place] Absolute 0.6 E9/L Normal 0.2 - 1.0 [...] 05-08-2023 Albumin [Mass/Vol] 4.1 g/dL Normal 3.3-5.0 [facility] Comment on above: Performed By: #### 1 5633711, 4261440, 6424062, 4650145, 7964578 ####[facility] [address] [place] [address] Albumin/Globulin [Mass ratio] 1.3 {ratio} Normal 1.1-2.2 [facility] Comment on above: Performed By: #### 1 1583649, 5487132, 2701584, 3792075, 7223455 ####[facility] [address] [place] [address] Alk Phos 80 Int._Unit/L Normal 21-98 [facility] Comment on above: Performed By: #### 1 1706588, 4638866, 5528163, 9653044, 9899342 ####[facility] [address] [place] [address] ALT 57 Int._Unit/L High 6-46 [facility] Comment on above: Performed By: #### 1 5925617, 7859450, 9580737, 1407216, 8530937 ####[facility] [address] [place] [address] AST 27 Int._Unit/L Normal 5-43 [facility] Comment on above: Performed By: #### 1 2399518, 1634001, 4739102, 7045197, 4201640 ####[facility] [address] [place] [address] Bili Direct 0.1 mg/dL Normal 0.0-0.4 [facility] Comment on above: Performed By: #### 1 8878041, 6046162, 6937253, 6090454, 1725151 ####[facility] [address] [place] [address] Bili Indirect 0.4 mg/dL Normal 0.1-0.9 [facility] Comment on above: Performed By: #### 1 7723982, 5318829, 9431323, 0742646, 5227482 ####[facility] [address] [place] [address] Bili Total 0.5 mg/dL Normal 0.0-1.1 [facility] Comment on above: Performed By: #### 1 9751479, 6383002, 1194581, 5477582, 2562861 ####[facility] [address] [place] [address] Globulin (S) [Mass/Vol] 3.2 g/dL Normal 1.4-4.0 [facility] Comment on above: Performed By: #### 1 4657514, 4958769, 8916895, 0669446, 9540048 ####[facility] [address] [place] [address] Protein [Mass/Vol] 7.3 g/dL Normal 6.0-7.8 [facility] Comment on above: Performed By: #### 1 5597808, 6377526, 6184440, 8231775, 2157415 ####[facility] [address] [place] [address] Lipase Levelon 05-08-2023 Lipase Lvl 26 unit/L Normal 13-58 [facility] Comment on above: Performed By: #### 1 4876553, 9678444, 4299998, 3640626, 5336306 ####[facility] [address] [place] [address] eGFRon 05-08-2023 eGFR 108 mL/min/1.73 m2 Normal >=59 [facility] Comment on above: Order Comment: Order added by Discern Expert. Performed By: #### 1 1473066, 1012573, 4713348, 5715215, 9715067 ####[facility] [address] [place] [address] Discharge Instructionson Discharge Instructions [id number]#1.00T IFF Normal [facility] ED Note-Physicianon 05-05-19 24 ED Note-Physician Normal [facility] Comment on above: Result Comment: Elec tronically Signed By: Landon Tidwell PA-C\.br\Date and Time Signed: 05/04/23 22:33 EST\.br\Electronically Co-Signed By: Pedro Pablo Fletcher DO\.br\Date and Time Co-Signed: 05/05/23 19:43 EST Consent for Treatmenton 04-25 Consent for Treatment [id number]#1.00T IFF Normal [facility] ED Clinical Summaryon 2023 ED Clinical Summary Normal Osbaldo martinez [facility] ED Note-Nursingon 05-04-2023 ED Note-Nursing Pt. refused staying for 30 minutes more for observation after receiving pain meds, said she always get immediately discharged after receiving the medications. Demanded leaving at this time. Normal [facility] ED Patient Education Noteon 05-04-2023 ED Patient Education Note Normal [facility] ED Patient Summaryon 024 ED Patient Summary Normal [facility] B hCG Qualon 04-30-2023 Beta HCG ( test) Ql Negative Normal [facility] Comment on above: Performed By: #### 2 3871476, 7323799, 5742820, 4517635, 0713299, 74977138, 9093277 ####[facility] [address] [place] [address] BMPon 04-30-2023 Anion gap [Moles/Vol] 12 mmol/L Normal 6-16 [facility] Comment on above: Performed By: #### 2 5612766, 7686378, 2286149, 3662708, 5442565, 60609845, 5666265 ####[facility] [address] [place] [address] BUN/Creat Ratio 21 No Units High 10-20 [facility] Comment on above: Performed By: #### 2 6816416, 9007784, 5236335, 7074531, 8666128, 94163197, 9688318 ####[facility] [address] [place] [address] Calcium [Mass/Vol] 8.6 mg/dL Low 8.9-11.1 [facility] Comment on above: Performed By: #### 2 5999413, 5945073, 4169940, 9029835, 7814315, 09636720, 0490626 ####[facility] [address] [place] [address] Chloride [Moles/Vol] 106 mmol/L Normal 101-111 [facility] Comment on above: Performed By: #### 2 3593676, 0466424, 2776468, 5261963, 8023496, 96758661, 7642738 ####[facility] [address] [place] [address] CO2 [Moles/Vol] 24 mmol/L Normal 21-31 [facility] Comment on above: Performed By: #### 2 9061296, 3683222, 4046980, 9080218, 7320668, 59190397, 0361490 ####[facility] [address] [place] [address] Creatinine [Mass/Vol] 0.7 mg/dL Normal 0.5-1.3 [facility] Comment on above: Performed By: #### 2 7408049, 9167003, 4655203, 2699187, 5419599, 30847578, 9866364 ####[facility] [address] [place] [address] Glucose [Mass/Vol] 83 mg/dL Normal 55-199 [facility] Comment on above: Performed By: #### 2 7957553, 3390236, 7509346, 8483795, 7319031, 67954309, 5561885 ####[facility] [address] [place] [address] Potassium [Moles/Vol] 4.1 mmol/L Normal 3.5-5.3 [facility] Comment on above: Performed By: #### 2 6703726, 5354216, 3714229, 7302095, 7478389, 44335947, 5693598 ####[facility] [address] [place] [address] Sodium [Moles/Vol] 138 mmol/L Normal 135-145 [facility] Comment on above: Performed By: #### 2 1897306, 1544133, 2225309, 6588688, 4621966, 20033874, 6701026 ####[facility] [address] [place] [address] Urea nitrogen [Mass/Vol] 15 mg/dL Normal 5-21 [facility] Comment on above: Performed By: #### 2 4894078, 0392583, 4422054, 5231419, 0212357, 36985935, 1882259 ####[address] [address] CBC w/ Auto Diffon 4 Basophil Absolute 0.0 E9/L Normal 0.0-0.2 [facility] Comment on above: Performed By: #### 2 6287275, 6201277, 3682848, 9633334, 2924966, 06158590, 0074158 ####[address] [address] Basophils/100 WBC (Bld) 0.6 % Normal 0.0-2.0 [facility] Comment on above: Performed By: #### 2 7909697, 4670465, 4746089, 5882785, 2583917, 25234854, 6355054 ####[address] [address] Eos Absolute 0.2 E9/L Normal 0.0-0.5 [facility] Comment on above: Performed By: #### 2 5769938, 7952116, 3445446, 8972567, 8331943, 44293252, 4438983 ####[address] [address] Eosinophils/100 WBC (Bld) 2.5 % Normal 0.0-8.0 [facility] Comment on above: Performed By: #### 2 2607778, 9438165, 8725770, 4329594, 6757783, 18538810, 6386234 ####[address] [address] Erythrocyte distribution width (RBC) [Ratio] 13.3 % Normal 10.9-14.2 [facility] Comment on above: Performed By: #### 2 6137574, 9055413, 3743869, 5128211, 6908674, 03622015, 7901572 ####[address] [place] [address] Hematocrit (Bld) [Volume fraction] 43.0 % Normal 34.0-46.0 [facility] Comment on above: Performed By: #### 2 1833649, 2219513, 6949356, 1580138, 0146745, 46872956, 7129726 ####[address] [address] Hemoglobin (Bld) [Mass/Vol] 14.3 g/dL Normal 12.0-16.0 [facility] Comment on above: Performed By: #### 2 1224589, 7652741, 5664038, 2116732, 8487146, 16009423, 7813495 ####[address] Lymph Absolute 2.2 E9/L Normal 1.0-4.0 [facility] Comment on above: Performed By: #### 2 1614508, 0173397, 7490672, 1582655, 1782332, 02044579, 6478103 ####[address] [address] Lymphocytes/100 WBC (Bld) 26.7 % Normal 14.0-50.0 [facility] Comment on above: Performed By: #### 2 6192389, 7158575, 9091110, 1981220, 3729668, 65560461, 6799452 ####[address] MCH (RBC) [Entitic mass] 31.7 pg Normal 27.0-34.0 [facility] Comment on above: Performed By: #### 2 8843903, 2249273, 0376621, 2361567, 2541524, 56752366, 1232653 ####[address] [address] MCHC (RBC) [Mass/Vol] 33.5 g/dL Normal 31.4-36.0 [facility] Comment on above: Performed By: #### 2 1903585, 0203451, 0321348, 0744361, 5676632, 63564635, 4333871 ####[address] [place] [address] MCV (RBC) [Entitic vol] 94.6 fL Normal 80.0-100.0 [facility] Comment on above: Performed By: #### 2 8350141, 7969982, 3796923, 6095036, 1487237, 82508946, 2013493 ####[address] [address] [place] Absolute 0.7 E9/L Normal 0.2-1.0 [facility] Comment on above: Performed By: #### 2 3264108, 6428975, 8537926, 2721881, 3710414, 44676169, 9273132 ####[address] [address] Monocytes/100 WBC (Bld) 8.4 % Normal 4.0-14.0 [facility] Comment on above: Performed By: #### 2 2371281, 8933959, 7578668, 3146460, 4479165, 45498174, 7983629 ####[address] [address] Neutro Absolute 5.0 E9/L Normal 2.0-7.5 [facility] Comment on above: Performed By: #### 2 0535763, 9374536, 2687597, 5289014, 9701691, 89978083, 4350152 ####[address] [address] Neutro Auto 61.8 % Normal 36.0-75.0 [facility] Comment on above: Performed By: #### 2 2244575, 9262568, 2571894, 3369218, 8273510, 73268689, 8216180 ####[address] [address] Platelet 303.0 E9/L Normal 150.0-500.0 [facility] Comment on above: Performed By: #### 2 1121238, 6943926, 7945551, 4705685, 7324442, 66332686, 6212231 ####[facility] [address] [place] [address] Platelet mean volume (Bld) [Entitic vol] 9.1 fL Normal 6.4-10.8 [facility] Comment on above: Performed By: #### 2 7499628, 1664512, 5689654, 8542571, 7405281, 41347999, 3673452 ####[facility] [address] [place] [address] RBC 4.5 E12/L Normal 4.3-5.9 [facility] Comment on above: Performed By: #### 2 0280529, 7464241, 7030798, 6854396, 6444468, 71224818, 3216076 ####[address] [address] WBC 8.1 E9/L Normal 4.0-11.0 [facility] Comment on above: Performed By: #### 2 0884644, 2652313, 4829177, 8494325, 1319481, 18430510, 1483282 ####[facility] [address] [place] [address] Abdomen/Pelvis w/ Contras ton 04-30-2023 CT Abdomen/Pelvis w/ Contrast Normal [facility] Consent for Treatmenton Consent for Treatment [id number]#1.00T IFF Normal [facility] Discharge Instructionson Discharge Instructions [id number]#1.00T IFF Normal [facility] ED Clinical Summaryon 2023 ED Clinical Summary Normal [facility] ED Note-Physicianon 04-30-19 ED Note-Physician Normal [facility] Comment on above: Result Comment: Elec tronically Signed By: Elisa Sánchez DO\.br\Date and Time Signed: 04/30/23 21:02 EST ED Patient Education Noteon 04-30-2023 ED Patient Education Note Normal [facility] ED Patient Summaryon 024 ED Patient Summary Normal [facility] Hep Func Panelon 04-30-2023 Albumin [Mass/Vol] 3.9 g/dL Normal 3.3-5.0 [facility] Comment on above: Performed By: #### 2 9891977, 2083206, 3965717, 9921102, 2168395, 40064606, 1570718 ####[facility] [address] [place] [address] Albumin/Globulin [Mass ratio] 1.3 {ratio} Normal 1.1-2.2 [facility] Comment on above: Performed By: #### 2 2971463, 9328095, 1393980, 8083028, 8797373, 18856237, 3977294 ####[facility] [address] [place] [address] Alk Phos 84 Int._Unit/L Normal 21-98 [facility] Comment on above: Performed By: #### 2 3951594, 8914418, 0895937, 7022273, 9295631, 09745662, 1481686 ####[facility] [address] [place] [address] ALT 118 Int._Unit/L High 6-46 [facility] Comment on above: Performed By: #### 2 1440896, 1851191, 8611870, 2066252, 0312597, 06144559, 8217497 ####[facility] [address] [place] [address] AST 83 Int._Unit/L High 5-43 [facility] Comment on above: Performed By: #### 2 4862807, 3444730, 0814447, 2844675, 0385613, 20587577, 2765093 ####[facility] [address] [place] [address] Bili Direct 0.1 mg/dL Normal 0.0-0.4 [facility] Comment on above: Performed By: #### 2 4933685, 6946549, 3664888, 6069403, 9441030, 57583492, 7370729 ####[facility] [address] [place] [address] Bili Indirect 0.2 mg/dL Normal 0.1-0.9 [facility] Comment on above: Performed By: #### 2 4440945, 4443958, 4821927, 4291242, 3877032, 03222205, 1499654 ####[facility] [address] [place] [address] Bili Total 0.3 mg/dL Normal 0.0-1.1 [facility] Comment on above: Performed By: #### 2 8901968, 8572768, 6633798, 4622968, 6213053, 36580268, 5862328 ####[facility] [address] [place], [place] [address] Globulin (S) [Mass/Vol] 3.0 g/dL Normal 1.4-4.0 [facility] Comment on above: Performed By: #### 2 8983103, 6523998, 3189795, 7304348, 3917580, 27838892, 7149657 ####[facility] [address] [place] [address] Protein [Mass/Vol] 6.9 g/dL Normal 6.0-7.8 [facility] Comment on above: Performed By: #### 2 4556227, 0085305, 2648193, 4298116, 4853412, 55786437, 3957852 ####[address] [place] [address] Lactic Acidon 04-30-2023 Lactic Acid Lvl 1.3 mmol/L Normal 0.5-2.2 [facility] Comment on above: Performed By: #### 2 9080563, 2544138, 6450909, 4452659, 9504913, 73338663, 6018768 ####[facility] [address] [place] [address] Lipase Levelon 04-30-2023 Lipase Lvl 29 unit/L Normal 13-58 [facility] Comment on above: Performed By: #### 2 0472447, 3057517, 1985179, 0626314, 5985079, 53629457, 3212500 ####[facility] [address] [place] [address] MRI Cholangiogram Pancreatog abdulkadir (mrcp)on 04-30-2023 MRI Cholangiogram Pancreatography (mrcp) Normal [facility] RAD - MRI Screening Formon 0 04-30-2023 RAD - MRI Screening Form [id number]#1.00 TIFF Normal [facility] UA With Cult Reflexon 2023 Bacteria LM Ql (Urine sed) TRACE Normal Trace [facility] Comment on above: Performed By: #### 1 2475311 ####[facility] [address] [place] [address] Bilirubin Ql (U) Negative Normal Negative [facility] Comment on above: Performed By: #### 1 8373671 ####[facility] [address] [place] [address] Clarity (U) CLEAR Normal Clear [facility] Comment on above: Performed By: #### 1 4592365 ####[facility] [address] [place] [address] Color (U) YELLOW Normal Yellow [facility] Comment on above: Performed By: #### 1 1701364 ####[facility] [address] [place] [address] Epithelial cells.squamous LM.HPF (Urine sed) [#/Area] 5-8 Normal 0-2 [facility] Comment on above: Performed By: #### 1 3255406 ####[facility] [address] [place] [address] Glucose Test strip (U) [Mass/Vol] Negative Normal Negative [facility] Comment on above: Performed By: #### 1 5405062 ####[address] [address] Hemoglobin Ql (U) Negative Normal Negative [facility] Comment on above: Performed By: #### 1 3065131 ####[address] [address] Ketones (U) [Mass/Vol] Negative Normal Negative [facility] Comment on above: Performed By: #### 1 2090042 ####[address] [address] [place].plasma/[place] .RBC (Bld) [Mass ratio] 0-3 Normal 0-3 [facility] Comment on above: Performed By: #### 1 5932265 ####[address] [address] Nitrite Ql (U) Negative Normal Negative [facility] Comment on above: Performed By: #### 1 9195124 ####[address] [address] pH (U) 5.5 [pH] Invalid Interpretation Code 5.0-9.0 [facility] Comment on above: Performed By: #### 1 5795545 ####[address] [address] Protein (U) [Mass/Vol] Negative Normal Negative [facility] Comment on above: Performed By: #### 1 8366428 ####[address] [address] Specific gravity (U) [Rel density] 1.010 Invalid Interpretation Code 1.005-1.030 [facility] Comment on above: Performed By: #### 1 0235598 ####[address] [address] Type of Urine collection method Clean Catch Normal [facility] Comment on above: Performed By: #### 1 6590559 ####[address] [address] Urobilinogen Qn (U) 0.2 {Jan'U}/dL Normal 0.0-1.0 [facility] Comment on above: Performed By: #### 1 9969034 ####[facility] [address] [place] [address] WBC Auto Ql (U) Negative Normal Negative [facility] Comment on above: Performed By: #### 1 3156431 ####[facility] [address] [place] [address] WBC LM.HPF (Urine sed) [#/Area] 0-5 Normal 0-5 [facility] Comment on above: Performed By: #### 1 1882050 ####[address] [place] [address] eGFRon 04-30-2023 eGFR 108 mL/min/1.73 m2 Normal >=59 [facility] Comment on above: Order Comment: Order added by Discern Expert. Performed By: #### 2 7537687, 7966790, 7280530, 8722768, 3787896, 60340362, 2647074 ####[facility] [address] [place] [address] ED NOTESon 04-28-2023 [facility] Ed Note ED Note: Last filed note HNO ID: [id number] Author: Laurita Baires RN Service: Length of Stay Author Type: Registered Nurse Filed: 04/28/2338 Note Text: Patient discharged to home, alert and oriented, skin warm, dry and pink. Denies needs and or questions. Will follow-up as directed, patient encouraged to return for worsening or new symptoms or other concerns. Normal [facility] Ed Note ED Note: Last filed note HNO ID: [id number] Author: Laurita Baires RN Service: Length of Stay Author Type: Registered Nurse Filed: 04/28/2330 Note Text: Pt ambulated to restroom with steady gait. Pt states her pain has improved and is now 5/10 and tolerable. Physician aware. HNO ID: [id number] Author: Laurita Baires RN Service: Length of Stay Author Type: Registered Nurse Filed: 02/04/24 0030 Note Text: Pt ambulated to restroom with steady gait. Pt states her pain has improved and is now 5/10 and tolerable. Normal [facility] ED PROVIDER NOTESon 04-28-19 [facility] Ed Provider Note ED Provider Note: Pepe blas filed note HNO ID: [id number] Author: Sal Juarez MD Service: Emergency Medicine Author Type: Physician Filed: 04/28/23 0504 Note Text: ATTENDING NOTE I have personally [...] the emergency department. Electronically signed by: Sal Juarez MD, 04/28/2023 5:07 AM [facility] ED NOTESon 04-27-2023 [facility] Ed Note ED Note: Last filed note HNO ID: [id number] Author: Laurita Baires, RN Service: Length of Stay Author Type: Registered Nurse Filed: 04/27/23 9598 Note Text: To bedside for rounding. Pt medicated for 10/10 pain per MAR. Pt resting quietly. No other needs expressed at this time. Call light in reach. [facility] Ed Note ED Note: Last filed note HNO ID: [id number] Author: Laurita Baires, RN Service: Length of Stay Author Type: Registered Nurse Filed: 04/27/23 8561 Note Text: To bedside to introduce self to pt and address needs. Resident at bedside. Pt resting quietly. No needs expressed at this time. Call light within reach. Normal [facility] ED Note-Physicianon 04-27-19 ED Note-Physician Normal [facility] Comment on above: Result Comment: Elec tronically Signed By: Angelic Reece PA-C\.br\Date and Time Signed: 04/25/23 10:27 EST\.br\Electronically Co-Signed By: Pedro Pablo Fletcher DO\.br\Date and Time Co-Signed: 04/27/23 20:17 EST ED PROVIDER NOTESon 04-27-19 [facility] Provider Note ED Provider Note: Pepe blas filed note HNO ID: [id number] Author: Sharan Hwang MD Service: Emergency Medicine [...] with se (more content not included)... Normal [facility] ED TRIAGEon 04-27-2023 [facility] Ed Triage Note ED Triage Note: Last filed note HNO ID: [id number] Author: Rebecca Gómez, RN Service: Emergency Medicine Author Type: Registered Nurse Filed: 04/27/232239 Note Text: Patient arrives to triage stating she has a herniated L4-L5 disc, got on an inversion table tonight and is now having back pain. Denies any other injury or complaints. A Normal [facility] Consent for Treatmenton Consent for Treatment [id number]#1.00T IFF Normal [facility] Discharge Instructionson Discharge Instructions [id number]#1.00T IFF Normal [facility] ED Clinical Summaryon 2023 ED [facility] 04-26-19 ED Note-Physician Normal [facility] Comment on above: Result Comment: Elec tronically Signed By: Annette Watkins, Astrit H\.br\Date and Time Signed: 04/26/23 10:46 EST ED Patient Education Noteon 04-26-2023 ED Patient Education Note Normal [facility] ED Patient Summaryon 024 ED Patient Summary Normal [facility] ED Note-Physicianon 04-23-19 ED Note-Physician Normal [facility] Comment on above: Result Comment: Elec tronically Signed By: Landon Tidwell PA-C\.br\Date and Time Signed: 04/22/23 20:40 EST\.br\Electronically Co-Signed By: Landon Tidwell PA-C\.br\Date and Time Co-Signed: 04/22/23 20:40 EST\.br\Electronically Co-Signed By: Pedro Pablo Fletcher DO\.br\Date and Time Co-Signed: 04/23/23 00:21 EST Consent for Treatmenton 03-26 Consent for Treatment [id number]#1.00T IFF Normal [facility] Discharge Instructionson Discharge Instructions [id number]#1.00 TIFF Normal [facility] ED Clinical Summaryon 2023 ED Clinical Summary Normal [facility] ED Patient Education Noteon 04-22-2023 ED Patient Education Note Normal [facility] ED Patient Summaryon 024 ED Patient Summary Normal [facility] XR shoulder LT min 2V*on XR shoulder LT min 2V* [facility] [place] [address] XRay Report Signed Patient: Jerad Tracy MR#: [id number] 49 : 1975 Acct:[id number] Age/Sex: 48 / F ADM Date: 04/12/23 Loc: ER Room: Type: [facility] ER Attending Dr: Copies to: Joshua Ferrell [...] Velazquez Jr., D.O.04/12/2023 2:36 PM Dictation Location: [place] [address] Transcribed By: [facility] 04/12/23 1436 Dictated By: Johan Velazquez Jr, DO 04/12/23 1435 Signed By: 04/12/23 1436 Normal [facility] CT Spine Lumbar w/o Contrast on 04-11-2023 CT Spine Lumbar w/o Contrast Normal [facility] CT Spine Thoracic w/o Contra ston 04-11-2023 CT Spine Thoracic w/o Contrast [facility] Consent To Leave AMAon 04-11 Consent To Leave AMA [id number]#1.00 TIFF [facility] Consent for Treatmenton 03-25 Consent for Treatment [id number]#1.00T IFF [facility] Discharge Instructionson Discharge Instructions [id number]#1.0 0TIFF [facility] ED Clinical Summaryon 2023 ED Clinical Summary Normal [facility] ED Clinical Summary Normal [facility] ED Note-Nursingon 04-11-2023 ED Note-Nursing Patient requesting t o leave AMA at this time. Dr. Fletcher made aware. Patient ambulatory upon exit with spouse. Normal [facility] ED Note-Nursing Patient offered additional medication. Patient states no relief from original medication. Patient refused additional medications. Patient states I can just do that at home. Dr. Fletcher made aware. Normal [facility] ED Note-Nursing Patient updated with plan at this time, aware of awaiting ct results. Normal [facility] ED Note-Physicianon 04-11-19 ED Note-Physician Normal [facility] Comment on above: Result Comment: Elec tronically Signed By: Robert Taylor PA-C\.br\Date and Time Signed: 04/11/23 18:59 EST\.br\Electronically Co-Signed By: Balbina Bryant M.D.\.br\Date and Time Co-Signed: 04/11/23 19:13 EST ED Patient Education Noteon 04-11-2023 ED Patient Education Note Normal [facility] ED Patient Education Note Normal [facility] ED Patient Summaryon 024 ED Patient Summary Normal [facility] ED Patient Summary Normal [facility] RAD - Preliminary Cat Scan R eporton 04-11-2023 RAD - Preliminary Cat Scan Report [id number]#1.00 TIFF Normal [facility] XR Spine Lumbosacral 2 or 3 Viewson 04-11-2023 XR Spine Lumbosacral 2 or 3 Views Normal [facility] Consent for Treatmenton 03-25 Consent for Treatment [id number]#1.00T IFF Normal [facility] CT Spine Lumbar w/o Contrast on 04-08-2023 [...] above for additional findings. Radiation Dose Estimate: CTDI(mGy):0.212001 / / / kVp:120.274740 / mAs:0.040439 / / / DLP(mGy-cm):3.533842Deh y Part: CTDI(mGy):49.355896 / / / kVp:140.275807 / mAs:341.365361 / / / DLP(mGy-cm):1330.105995 Body Part: Final Dictated by: Kem Childers MD Dictated DT/TM: 04.08.2023 7:30 pm Signed by: Kem Childers MD Signed (Electronic Signature): 04.08.2023 7:37 pm (If Report Is Signed, Electronically Signed in Other Vendor System) [facility] ED Clinical Summaryon 2023 ED Clinical Summary (Inserted Image. Darlene ble to display) [address] [id number] ED Clinical Summary Person Information Name: Jerad Tracy Alesha/[facility] Age: 48 Years : 1975 Sex: Female PCP: Marital Status: Phone: Race: White Ethnicity: Not or Language: Serbian Visit Reason: Back pain; back pain Acuity: 4 Enc Type: Emergency Med Service: Emergency Medicine Arrival: 04/08/2023 16:48:15 Discharge: 04/08/2023 20:40:00 LOS: 000 03:52 Checkin: 04/08/2023 16:48:15 Checkout: 04/08/2023 20:40:00 Dispo Type: Home or Self Care Address: [address] [place] [phone] Provider Notes: Diagnosis: 1:Lumbar pain; 2:Bulging lumbar [...] Physician Referral Line Comments: [facility] Referral Line [phone] to establish PCP Discharge Orders: Discharge Patient 04/08/23 20:15:00 EST, Discharge to Home, Self, Lumbar pain Patient Education Information: Degenerative Disk Disease [facility] Poison Help line: . [facility] Hotline: [place] Tobacco Quit Line: [place], [place]) [address]: [phone] [place], [place]) [address]: [phone] [facility] [address], [place]: [phone] [facility] ED Note-Physicianon 04-08-19 ED Note-Physician Chief [...] and appropria (more content not included)... [facility] Auto Diffon 04-05-2023 Basophils/100 WBC (Bld) 0.4 % Normal 0.0-2.0 [facility] Comment on above: Order Comment: Order Added by Discern Expert. Performed By: #### 2 821751, 5568029, 3957557, 7381264, 0285998, 77542564 ####[facility] [address] [place] [address] Basophils/Leukocytes Auto (Bld) [Pure # fraction] 0.0 E9/L Normal 0.0-0.2 [facility] Comment on above: Order Comment: Order Added by Discern Expert. Performed By: #### 2 139402, 2768779, 1243185, 8815105, 8914538, 05747683 ####[facility] [address] [place] [address] Eosinophils/100 WBC (Bld) 2.3 % Normal 0.0-8.0 [facility] Comment on above: Order Comment: Order Added by Discern Expert. Performed By: #### 2 288241, 6247788, 7576274, 5935512, 7526467, 71196699 ####[facility] [address] [place] [address] Eosinophils/Leukocytes Auto (Bld) [Pure # fraction] 0.2 E9/L Normal 0.0-0.5 [facility] Comment on above: Order Comment: Order Added by Discern Expert. Performed By: #### 2 174633, 6930510, 1140354, 8327775, 5449938, 76530500 ####[facility] [address] [place] [address] Lymphocytes/100 WBC (Bld) 29.6 % Normal 14.0-50.0 [facility] Comment on above: Order Comment: Order Added by Discern Expert. Performed By: #### 2 946626, 9428086, 8026593, 4130697, 8311970, 76470993 ####[place] [address] [place] [address] Lymphocytes/Leukocytes Auto (Bld) [Pure # fraction] 2.2 E9/L Normal 1.0-4.0 [facility] Comment on above: Order Comment: Order Added by Discern Expert. Performed By: #### 2 969868, 8901607, 8220761, 6775752, 3768148, 44949542 ####[address] [place] [address] Monocytes/100 WBC (Bld) 9.7 % Normal 4.0-14.0 [facility] Comment on above: Order Comment: Order Added by Gregory Expert. Performed By: #### 2 269173, 1009734, 7361995, 1729051, 2964519, 85777750 ####[place] [place] [address] Monocytes/Leukocytes Auto (Bld) [Pure # fraction] 0.7 E9/L Normal 0.2-1.0 [facility] Comment on above: Order Comment: Order Added by Gregory Expert. Performed By: #### 2 217137, 2456451, 8959593, 4606829, 7286986, 72459583 ####[address] [place] [address] Neutrophils/100 WBC (Bld) 58.0 % Normal 36.0-75.0 [facility] Comment on above: Order Comment: Order Added by Gregory Expert. Performed By: #### 2 088591, 8511673, 1618664, 1878023, 1844519, 26091324 ####[address] [place] [address] Neutrophils/Leukocytes Auto (Bld) [Pure # fraction] 4.3 E9/L Normal 2.0-7.5 [facility] Comment on above: Order Comment: Order Added by Discern Expert. Performed By: #### 2 350376, 7088201, 2221619, 5008846, 4748845, 46142177 ####[facility] [address] [place] [address] BMPon 04-05-2023 Anion gap [Moles/Vol] 11 mmol/L Normal 6-16 [facility] Comment on above: Performed By: #### 2 987896, 9313722, 3790650, 2093865, 9862636, 36537717 ####[facility] [address] [place] [address] BUN/Creat Ratio 15 No Units Normal 10-20 [facility] Comment on above: Performed By: #### 2 303568, 3294874, 6783211, 5219445, 2083126, 36651613 ####[facility] [address] [place] [address] Calcium [Mass/Vol] 8.6 mg/dL Low 8.9-11.1 [facility] Comment on above: Performed By: #### 2 214917, 0582582, 6069806, 8456093, 7710794, 07108932 ####[facility] [address] [place] [address] Chloride [Moles/Vol] 107 mmol/L Normal 101-111 [facility] Comment on above: Performed By: #### 2 968240, 7266335, 4874723, 5106584, 2939195, 57277648 ####[facility] [address] [place] [address] CO2 [Moles/Vol] 24 mmol/L Normal 21-31 [facility] Comment on above: Performed By: #### 2 394257, 9984052, 7633499, 7542116, 5124602, 46266451 ####[facility] [address] [place] [address] Creatinine [Mass/Vol] 0.8 mg/dL Normal 0.5-1.3 [facility] Comment on above: Performed By: #### 2 144657, 3213556, 3511326, 4014472, 0254174, 06956288 ####[facility] [address] [place] [address] Glucose [Mass/Vol] 145 mg/dL Normal 55-199 [facility] Comment on above: Performed By: #### 2 668982, 1542129, 5722995, 7854714, 9027382, 89623726 ####[facility] [address] [place] [address] Potassium [Moles/Vol] 3.4 mmol/L Low 3.5-5.3 [facility] Comment on above: Performed By: #### 2 757786, 4445886, 0279886, 9487594, 3985902, 07802135 ####[facility] [address] [place] [address] Sodium [Moles/Vol] 139 mmol/L Normal 135-145 [facility] Comment on above: Performed By: #### 2 448971, 3689518, 7851572, 4958401, 9638922, 58028629 ####[facility] [address] [place] [address] Urea nitrogen [Mass/Vol] 12 mg/dL Normal 5-21 [facility] Comment on above: Performed By: #### 2 180381, 4593555, 7545501, 4650124, 3282461, 21139733 ####[address] [place] [address] CBC w/ Auto Diffon 4 Erythrocyte distribution width (RBC) [Ratio] 13.2 % Normal 10.9-14.2 [facility] Comment on above: Performed By: #### 2 630546, 2052956, 5284585, 4824901, 4348766, 98968022 ####[address] [place] [address] Hematocrit (Bld) [Volume fraction] 43.1 % Normal 34.0-46.0 [facility] Comment on above: Performed By: #### 2 305575, 7159682, 9686680, 0428655, 7503267, 60621583 ####[address] [address] Hemoglobin (Bld) [Mass/Vol] 14.5 g/dL Normal 12.0-16.0 [facility] Comment on above: Performed By: #### 2 020738, 2669372, 9467094, 1944642, 9521448, 53594238 ####[address] [address] MCH (RBC) [Entitic mass] 31.8 pg Normal 27.0-34.0 [facility] Comment on above: Performed By: #### 2 040792, 3234614, 4107377, 4836418, 8093752, 26874775 ####[address] [address] MCHC (RBC) [Mass/Vol] 33.5 g/dL Normal 31.4-36.0 [facility] Comment on above: Performed By: #### 2 379373, 4661402, 1909593, 7324376, 5951960, 28211166 ####[address] [address] MCV (RBC) [Entitic vol] 95.0 fL Normal 80.0-100.0 [facility] Comment on above: Performed By: #### 2 078257, 3180584, 9718288, 8854868, 2802407, 59743166 ####[address] [address] Platelet mean volume (Bld) [Entitic vol] 9.0 fL Normal 6.4-10.8 [facility] Comment on above: Performed By: #### 2 739720, 9692938, 2922784, 3774778, 0513394, 98949095 ####[address] [address] Platelets (Bld) [#/Vol] 268.0 E9/L Normal 150.0-500.0 [facility] Comment on above: Performed By: #### 2 214480, 0503995, 6204650, 2695486, 0358527, 05931185 ####[facility] [address] [place] [address] RBC (Bld) [#/Vol] 4.5 E12/L Normal 4.3-5.9 [facility] Comment on above: Performed By: #### 2 980961, 1722434, 1777237, 7430079, 0628454, 66239033 ####[facility] [address] [place] [address] WBC corrected for nucl RBC Auto (Bld) [#/Vol] 7.4 E9/L Normal 4.0-11.0 [facility] Comment on above: Performed By: #### 2 330982, 2590754, 5579048, 8605294, 5277689, 37681407 ####[facility] [address] [place] [address] CHEMISTRYOrdered By: SYSTEM SYSTEM on 04-05-2023 Albumin [...] for Treatmenton 03-25 Consent for Treatment [id number]#1.00T IFF Normal [facility] Discharge Instructionson Discharge Instructions [id number]#1.00 TIFF Normal [facility] ED Clinical Summaryon 2023 ED Clinical Summary Normal [facility] ED Note-Physicianon 04-05-19 ED Note-Physician Normal [facility] Comment on above: Result Comment: Elec tronically Signed By: Robert Taylor PA-C\.br\Date and Time Signed: 04/05/23 18:35 EST\.br\Electronically Co-Signed By: Nikhil Tubbs DO.br\Date and Time Co-Signed: 04/05/23 18:36 EST ED Patient Education Noteon 04-05-2023 ED Patient Education Note Normal [facility] ED Patient Summaryon 024 ED Patient Summary Normal [facility] HEMATOLOGYOrdered By: SYSTEM SYSTEM on 04-05-2023 Basophils/100 [...] 33.5 g/dL Normal 31.4 - 36.0 gm/dL FT HemeAutoSS MCV (RBC) [Entitic vol] 95.0 fL Normal 80.0 - 100.0 fL FT HemeAutoSS Platelet mean volume (Bld) [Entitic vol] 9.0 fL Normal 6.4 - 10.8 fL FT HemeAutoSS Platelets (Bld) [#/Vol] 268.0 E9/L Normal 150.0 - 500.0 E9/L FT HemeAutoSS RBC (Bld) [#/Vol] 4.5 E12/L Normal 4.3 - 5.9 E12/L [facility] HemeAutoSS WBC corrected for nucl RBC Auto (Bld) [#/Vol] 7.4 E9/L Normal 4.0 - 11.0 E9/L [facility] HemeAutoSS Hep Func Panelon 04-05-2023 Albumin [Mass/Vol] 4.0 g/dL Normal 3.3-5.0 [facility] Comment on above: Performed By: #### 2 608506, 9924241, 5026950, 0710100, 7299439, 27397438 ####[facility] [address] [place] [address] Albumin/Globulin [Mass ratio] 1.2 {ratio} Normal 1.1-2.2 [facility] Comment on above: Performed By: #### 2 837664, 9515215, 3500265, 8286241, 5342483, 83293209 ####[facility] [address] [place] [address] Alk Phos 79 Int._Unit/L Normal 21-98 [facility] Comment on above: Performed By: #### 2 433361, 5315214, 2320690, 9832682, 1708399, 20972635 ####[facility] [address] [place] [address] ALT 140 Int._Unit/L High 6-46 [facility] Comment on above: Performed By: #### 2 204267, 9940572, 3931115, 4265967, 4520080, 11642906 ####[facility] [address] [place] [address] AST 83 Int._Unit/L High 5-43 [facility] Comment on above: Performed By: #### 2 755667, 5425501, 2184016, 0727093, 1496637, 12211383 ####[facility] [address] [place] [address] Bili Direct 0.2 mg/dL Normal 0.0-0.4 [facility] Comment on above: Performed By: #### 2 193035, 1239602, 3537345, 4531004, 3502384, 02272493 ####[facility] [address] [place] [address] Bili Indirect 0.6 mg/dL Normal 0.1-0.9 [facility] Comment on above: Performed By: #### 2 592229, 2996378, 4807645, 7569128, 3871752, 48328099 ####[facility] [address] [place] [address] Bili Total 0.8 mg/dL Normal 0.0-1.1 [facility] Comment on above: Performed By: #### 2 497476, 2469457, 9776233, 3063171, 7312911, 51823556 ####[facility] [address] [place] [address] Globulin (S) [Mass/Vol] 3.3 g/dL Normal 1.4-4.0 [facility] Comment on above: Performed By: #### 2 688463, 6756546, 1950947, 5028291, 1354031, 57590354 ####[facility] [address] [place] [address] Protein [Mass/Vol] 7.3 g/dL Normal 6.0-7.8 [facility] Comment on above: Performed By: #### 2 187482, 6597216, 0459911, 9068719, 1861211, 63604770 ####[address] [place] [address] Lipase Levelon 04-05-2023 Lipase Lvl 26 unit/L Normal 13-58 [facility] Comment on above: Performed By: #### 2 407654, 8750089, 3515620, 3549418, 9263557, 32714397 ####[facility] [address] [place] [address] eGFRon 04-05-2023 GFR/1.73 sq M.predicted among non-blacks MDRD (S/P/Bld) [Vol rate/Area] mL/min/{1.73_m2} Normal >=59 [facility] Comment on above: Order Comment: Order added by Discern Expert. Performed By: #### 2 470018, 2984557, 1246123, 3811759, 6828963, 44476655 ####[facility] [address] [place] [address] Consent for Treatmenton Consent for Treatment [id number]#1.00T IFF Normal [facility] Discharge Instructionson Discharge Instructions [id number]#1.00T IFF Normal [facility] ED Clinical Summaryon 2023 ED Clinical Summary Normal [facility] ED Note-Physicianon 04-02-19 24 ED Note-Physician Normal [facility] Comment on above: Result Comment: Elec tronically Signed By: Elisa Sánchez DO.rufino\Date and Time Signed: 04/02/23 22:34 EST ED Patient Education Noteon 04-02-2023 ED Patient Education Note Normal [facility] ED Patient Summaryon 024 ED Patient Summary Normal [facility] Alpha 1 antitrypsinon 2023 Alpha 1 antitrypsin Nephelometry [Mass/Vol] 155 mg/dL Normal 84-218 [facility] Comment on above: Performed By: #### 5 0023-1 #### JOLENE Cantu ([id number]) [facility] ([facility]) [address] [place] [address] Ikgjo-9-Bbzrjadvqdvry 2023 AFP [Mass/Vol] 6 ng/mL Normal 0-9 [facility] Comment on above: Order Comment: AFP t esting is performed by chemiluminescent immunoassay using the Siemens Synata. Values obtained with different analyte methods cannot be used interchangeably. This test can be used as an adjunct in the diagnosis and monitoring of AFP-producing tumors, including non-seminomatous germ cell tumors and hepatocellular carcinomas. Performed By: #### 1 834-1 #### JOLENE Cantu ([id number]) [facility] ([facility]) [address] [place] [address] Bilirubin.glucuronidated+Kenan irubin.albumin boundon 04-01-2023 Bilirubin.direct [Mass/Vol] 0.1 mg/dL Normal 0.0-0.3 [facility] Comment on above: Performed By: #### 1 968-7 #### SHWETA ROCHA ([id number]) [facility] ([facility]) [address] [place] [address] CBC W Auto Differential pane l (Bld)on 04-01-2023 Basophils (Bld) [#/Vol] 0.01 x10*3/uL Normal 0.00-0.10 [facility] Comment on above: Performed By: #### 5 7021-8 #### SHWETA ROCHA ([id number]) [facility] ([facility]) [address] [place] [address] Basophils/100 WBC (Bld) 0.2 % Normal 0.0-2.0 [facility] Comment on above: Performed By: #### 5 7021-8 #### SHWETA ROCHA (35452) [facility] ([facility]) [address] [place] [address] Eosinophils (Bld) [#/Vol] 0.16 x10*3/uL Normal 0.00-0.70 [facility] Comment on above: Performed By: #### 5 7021-8 #### SHWETA ROCHA (76057) [facility] ([facility]) [address] [place] [address] Eosinophils/100 WBC (Bld) 2.6 % Normal 0.0-6.0 [facility] Comment on above: Performed By: #### 5 7021-8 #### SHWETA ROCHA (67084) [facility] ([facility]) [address] [place] [address] Erythrocyte distribution width (RBC) [Ratio] 12.2 % Normal 11.5-14.5 [facility] Comment on above: Performed By: #### 5 7021-8 #### SHWETA ROCHA (55053) [facility] ([facility]) [address] [place] [address] Hematocrit (Bld) [Volume fraction] 47.8 % High 36.0-46.0 [facility] Comment on above: Performed By: #### 5 7021-8 #### SHWETA ROCHA (10446) [facility] ([facility]) [address] [place] [address] Hemoglobin (Bld) [Mass/Vol] 16.0 g/dL Normal 12.0-16.0 [facility] Comment on above: Performed By: #### 5 7021-8 #### SHWETA ROCHA (43075) [facility] ([facility]) [address] [place] [address] Immature granulocytes (Bld) [#/Vol] 0.02 x10*3/uL Normal 0.00-0.70 [facility] Comment on above: Performed By: #### 5 7021-8 #### SHWETA ROCHA (38893) [facility] ([facility]) [address] [place] [address] Immature granulocytes/100 WBC (Bld) 0.3 % Normal 0.0-0.9 [facility] Comment on above: Result Comment: Aspen ture Granulocyte Count (IG) includes promyelocytes, myelocytes and metamyelocytes but does not include bands. Percent differential counts (%) should be interpreted in the context of the absolute cell counts (cells/UL). Performed By: #### 5 7021-8 #### SHWETA ROCHA (72484) [facility] ([facility]) [address] [place] [address] Lymphocytes (Bld) [#/Vol] 2.03 x10*3/uL Normal 1.20-4.80 [facility] Comment on above: Performed By: #### 5 7021-8 #### SHWETA ROCHA (73392) [facility] ([facility]) [address] [place] [address] Lymphocytes/100 WBC (Bld) 32.7 % Normal 13.0-44.0 [facility] Comment on above: Performed By: #### 5 7021-8 #### SHWETA ROCHA (00481) [facility] ([facility]) [address] [place] [address] MCH (RBC) [Entitic mass] 32.3 pg Normal 26.0-34.0 [facility] Comment on above: Performed By: #### 5 7021-8 #### SHWETA ROCHA (11040) [facility] ([facility]) [address] [place] [address] MCHC (RBC) [Mass/Vol] 33.5 g/dL Normal 32.0-36.0 [facility] Comment on above: Performed By: #### 5 7021-8 #### SHWETA ROCHA (46781) [facility] ([facility]) [address] [place] [address] MCV (RBC) [Entitic vol] 96 fL Normal 80-100 [facility] Comment on above: Performed By: #### 5 7021-8 #### SHWETA ROCHA ([id number]) [facility] ([facility]) [address] [place] [address] 07168 Monocytes (Bld) [#/Vol] 0.72 x10*3/uL Normal 0.10-1.00 [facility] Comment on above: Performed By: #### 5 7021-8 #### SHWETA ROCHA ([id number]) [facility] ([facility]) [address] [place] [address] 01674 Monocytes/100 WBC (Bld) 11.6 % Normal 2.0-10.0 [facility] Comment on above: Performed By: #### 5 7021-8 #### SHWETA ROCHA (12798) [facility] ([facility]) [address] [place] [address] 38033 Neutrophils (Bld) [#/Vol] 3.26 x10*3/uL Normal 1.20-7.70 [facility] Comment on above: Result Comment: Perc ent differential counts (%) should be interpreted in the context of the absolute cell counts (cells/uL). Performed By: #### 5 7021-8 #### SHWETA ROCHA ([id number]) [facility] ([facility]) [address] [place] [address] 19550 Neutrophils/100 WBC (Bld) 52.6 % Normal 40.0-80.0 [facility] Comment on above: Performed By: #### 5 7021-8 #### SHWETA ROCHA ([id number]) [facility] ([facility]) [address] [place] [address] 15398 Nucleated RBC/100 WBC (Bld) [Ratio] 0.0 /100 WBCs Normal 0.0-0.0 [facility] Comment on above: Performed By: #### 5 7021-8 #### SHWETA ROCHA ([id number]) [facility] ([facility]) [address] [place] [address] 32946 Platelets (Bld) [#/Vol] 403 x10*3/uL Normal 150-450 [facility] Comment on above: Performed By: #### 5 7021-8 #### SHWETA ROCHA ([id number]) [facility] ([facility]) [address] [place] [address] 90692 RBC (Bld) [#/Vol] 4.96 x10*6/uL Normal 4.00-5.20 [facility] Comment on above: Performed By: #### 5 7021-8 #### SHWETA ROCHA ([id number]) [facility] ([facility]) [address] [place] [address] 46520 WBC (Bld) [#/Vol] 6.2 x10*3/uL Normal 4.4-11.3 [facility] Comment on above: Performed By: #### 5 7021-8 #### SHWETA ROCHA ([id number]) [facility] ([facility]) [address] [place] [address] 72457 Ceruloplasminon 04-01-2023 Ceruloplasmin [Mass/Vol] 30.7 mg/dL Normal 20.0-60.0 [facility] Comment on above: Performed By: #### 2 064-4 #### JOLENE Cantu ([id number]) [facility] ([facility]) [address] [place] [address] 56083 Coagulation tissue factor in ducedon 04-01-2023 PT Coag (PPP) [Time] 10.1 s Normal 9.8-12.8 [facility] Comment on above: Performed By: #### 5 902-2 #### JOLENE Cantu ([id number]) [facility] ([facility]) [address] [place] [address] 97146 Comprehensive metabolic 2000 panelon 04-01-2023 Albumin BCP dye [Mass/Vol] 4.3 g/dL Normal 3.4-5.0 [facility] Comment on above: Performed By: #### 2 4323-8 #### SHWETA ROCHA ([id number]) [facility] ([facility]) [address] [place] [address] 32206 ALP [Catalytic activity/Vol] 97 U/L Normal 33-110 [facility] Comment on above: Performed By: #### 2 4323-8 #### SHWETA ROCHA ([id number]) [facility] ([facility]) [address] [place] [address] 33340 ALT With P-5'-P [Catalytic activity/Vol] 144 U/L High 7-45 [facility] Comment on above: Result Comment: Katia ents treated with Sulfasalazine may generate falsely decreased results for ALT. Performed By: #### 2 4323-8 #### ANAIBELIGANESH ADAMA KEY ([id number]) [facility] ([facility]) [address] [place] [address] 12190 Anion gap [Moles/Vol] 14 mmol/L Normal 10-20 [facility] Comment on above: Performed By: #### 2 4323-8 #### BEATRIZIBELIGANESH ROCHA ([id number]) [facility] ([facility]) [address] [place] [address] 40965 AST With P-5'-P [Catalytic activity/Vol] 120 U/L High 9-39 [facility] Comment on above: Performed By: #### 2 4323-8 #### ANAIBELIGANESH ADAMA KEY ([id number]) [facility] ([facility]) [address] [place] [address] 58775 Bilirubin [Mass/Vol] 0.6 mg/dL Normal 0.0-1.2 [facility] Comment on above: Performed By: #### 2 4323-8 #### BEATRIZIBELIGANESH ADAMA KEY ([id number]) [facility] ([facility]) [address] [place] [address] 14626 Calcium [Mass/Vol] 9.4 mg/dL Normal 8.6-10.3 [facility] Comment on above: Performed By: #### 2 4323-8 #### ANAIBELIGANESH ADAMA KEY ([id number]) [facility] ([facility]) [address] [place] [address] 71087 Chloride [Moles/Vol] 101 mmol/L Normal 98-107 [facility] Comment on above: Performed By: #### 2 4323-8 #### ANAIBELIGANESH ADAMA KEY ([id number]) [facility] ([facility]) [address] [place] [address], [place] [address] CO2 [Moles/Vol] 29 mmol/L Normal 21-32 [facility] Comment on above: Performed By: #### 2 4323-8 #### SHWETA ROCHA ([id number]) [facility] ([facility]) [address] [place] [address] Creatinine [Mass/Vol] 0.74 mg/dL Normal 0.50-1.05 [facility] Comment on above: Performed By: #### 2 4323-8 #### SHWETA ROCHA (28119) [facility] ([facility]) [address] [place] [address] GFR/1.73 sq M.predicted MDRD (S/P/Bld) [Vol rate/Area] mL/min/{1.73_m2} Normal >60 [facility] Comment on above: Result Comment: Calc ulations of estimated GFR are performed using the 2020 CKD-EPI Study Refit equation without the race variable for the IDMS-Traceable creatinine methods. https://jasn.asnjournals.org/content/early/ASN.22100 49363 Performed By: #### 2 4323-8 #### SHWETA ROCHA (24841) [facility] ([facility]) [address] [place] [address] 55557 Glucose [Mass/Vol] 81 mg/dL Normal 74-99 [facility] Comment on above: Performed By: #### 2 4323-8 #### SHWETA ROCHA (22678) [facility] ([facility]) [address] [place] [address] 63587 Potassium [Moles/Vol] 5.5 mmol/L High 3.5-5.3 [facility] Comment on above: Performed By: #### 2 4323-8 #### SHWETA ROCHA (28124) [facility] ([facility]) [address] [place] [address] 85924 Protein [Mass/Vol] 7.6 g/dL Normal 6.4-8.2 [facility] Comment on above: Performed By: #### 2 4323-8 #### SHWETA ROCHA (78613) [facility] ([facility]) [address] [place] [address] 61912 Sodium [Moles/Vol] 138 mmol/L Normal 136-145 [facility] Comment on above: Performed By: #### 2 4323-8 #### SHWETA ROCHA ([id number]) [facility] ([facility]) [address] [place] [address] 28948 Urea nitrogen [Mass/Vol] 11 mg/dL Normal 6-23 [facility] Comment on above: Performed By: #### 2 4323-8 #### SHWETA ROCHA (93936) [facility] ([facility]) [address] [place] [address] 10759 Ferritinon 04-01-2023 Ferritin [Mass/Vol] 77 ng/mL Normal 8-150 [facility] Comment on above: Performed By: #### 5 0023-1 #### JOLENE Cantu ([id number]) [facility] ([facility]) [address] [place] [address] 17297 HCV RNA panel LINDSEY+probeon HCV PCR QUANT [id number] IU/mL High Not detected [facility] Comment on above: Order Comment: Repor table [...] the [facility], Department of Pathology, [facility]. Performed By: #### 5 0023-1 #### JOLENE Cantu (58801) [facility] ([facility]) [address] [place] [address] HCV PCR W/GENOTYPE REFLEX ORDERED Aliquot sent to Genetics Lab for genotyping Normal [facility] Comment on above: Order Comment: Repor table Range: 15-100,000,000 IU/mL. The javier HCV is an in vitro nucleic acid amplification test for both the detection and quantitation of hepatitis C virus (HCV) RNA, in human EDTA plasma or serum, of HCV antibody positive or HCV-infected individuals on the javier Medbox0/8800 Systems. Dual probes are used to detect [...] the [facility], Department of Pathology, [facility]. Performed By: #### 5 0023-1 #### JOLENE Cantu (18897) [facility] ([facility]) [address] [place] [address] HCV RNA RESULT Detected Abnormal Not detected [facility] Comment on above: Order Comment: Repor table [...] the [facility] Laboratory, Department of Pathology, [facility]. Performed By: #### 5 0023-1 #### JOLENE Cantu ([id number]) [facility] ([facility]) [address] [place] [address] HCV RNA, PCR LOG 7.24 Log IU/mL Normal [facility] Comment on above: Order Comment: Repor table Range: 15-100,000,000 IU/mL. The javier HCV is an in vitro nucleic acid amplification test for both the detection and quantitation of hepatitis C virus (HCV) RNA, in human EDTA plasma or serum, of HCV antibody positive or HCV-infected individuals on the javier Medbox0/8800 Systems. Dual probes are used to detect [...] the [facility], Department of Pathology, [facility]. Performed By: #### 5 0023-1 #### JOLENE Cantu (01295) [facility] ([facility]) [address] [place] [address] HCV genotype Sequencing Nomo n 04-01-2023 ELECTRONICALLY SIGNED BY Stephen Nguyen MD PhD [facility] Comment on above: Performed By: #### 5 902-2 #### JOLENE Cantu (13204) [facility] ([facility]) [address] [place] [address] HEPATITIS C INTERPRETATION INTERPRETATION [facility] Comment on above: Performed By: #### 5 902-2 #### JOLENE Cantu (83310) [facility] ([facility]) [address] [place], [place] [address] HIV 1+2 Ab+HIV1 p24 Agon HIV 1+2 Ab+HIV1 p24 Ag IA Ql Non-Reactive Normal Nonreactive [facility] Comment on above: Order Comment: HIV A g/Ab screen is performed using the Siemens Synata HIV Ag/Ab Combo assay which detects the presence of HIV p24 antigen as well as antibodies to HIV-1 (Group M and O) and HIV-2. No laboratory evidence of HIV infection. If acute HIV infection is suspected, consider testing for HIV RNA by PCR (viral load). Performed By: #### 5 6888-1 #### JOLENE Cantu ([id number]) [facility] ([facility]) [address] [place], [place] [address] Hepatitis A virus Abon 04-01 HAV Ab IA Ql (S) Reactive Abnormal Nonreactive [facility] Comment on above: Order Comment: Repor table Range: 15-100,000,000 IU/mL. The javier HCV is an in vitro nucleic acid amplification test for both the detection and quantitation of hepatitis C virus (HCV) RNA, in human EDTA plasma or serum, of HCV antibody positive or HCV-infected individuals on the javier Medbox0/8800 Systems. Dual probes are used to detect [...] the Molecular Diagnostic Laboratory, Department of Pathology, [facility]. Performed By: #### 5 0023-1 #### JOLENE Cantu (46052) [facility] ([facility]) [address] [place] [address] Hepatitis B virus core Abon 04-01-2023 HBV core Ab Ql (S) Non-Reactive Normal Nonreactive [facility] Comment on above: Order Comment: Repor table Range: 15-100,000,000 IU/mL. The javier HCV is an in vitro nucleic acid amplification test for both the detection and quantitation of hepatitis C virus (HCV) RNA, in human EDTA plasma or serum, of HCV antibody positive or HCV-infected individuals on the javier Medbox0/8800 Systems. Dual probes are used to detect [...] the [facility] Diagnostic Laboratory, Department of Pathology, [facility]. Performed By: #### 5 0023-1 #### JOLENE Cantu (32354) [facility] ([facility]) [address] [place] [address] Hepatitis B virus surface Ab on 04-01-2023 HBV surface Ab Qn (S) <3.1 Normal <10.0 [facility] Comment on above: Result Comment: Inte rpretive Criteria: <10 mIU/mL Nonreactive >=10 mIU/mL Reactive Biotin interference may cause falsely decreased results. Patients taking a Biotin dose of up to 5 mg/day should refrain from taking Biotin for 24 hours before sample collection. Providers may contact their local laboratory for further information. Performed By: #### 5 0023-1 #### JOLENE Cantu (83726) [facility] ([facility]) [address] [place] [address] 93321 Hepatitis B virus surface Ag on 04-01-2023 HBV surface Ag IA Ql Non-Reactive Normal Nonreactive U [facility] Comment on above: Result Comment: Biot in interference may cause falsely decreased results. Patients taking a Biotin dose of up to 5 mg/day should refrain from taking Biotin for 24 hours before sample collection. Providers may contact their local laboratory for further information. Performed By: #### 5 0023-1 #### JOLENE Cantu ([id number]) [facility] ([facility]) [address] [place] [address] 12632 Hepatitis C virus genotypeon 04-01-2023 HCV genotype Sequencing Nom Genotype 1a Normal Genotypes: 1, 1a, 1b, 1c, 1d, 1e, 1g, 1h, 1i, 1j, 1k, 1l, 1m, 1n, 2, 2a, 2b, 3, 3a, 3b, 3d, 3e, 3g, 3h, 3i, 3k, 4, 4a, 4b, 5, 5a, 6, 6a, 6b [facility] Comment on above: Performed By: #### 5 902-2 #### JOLENE Cantu ([id number]) [facility] ([facility]) [address] [place] [address] 69070 Iron and Iron binding capaci ty panelon 04-01-2023 Iron [Mass/Vol] 119 ug/dL Normal 35-150 [facility] Comment on above: Performed By: #### 5 0190-8 #### SHWETA ROCHA (42061) [facility] ([facility]) [address] [place] [address] 23757 Iron binding capacity [Mass/Vol] 465 ug/dL High 240-445 [facility] Comment on above: Performed By: #### 5 0190-8 #### SHWETA ROCHA (92256) [facility] ([facility]) [address] [place] [address] Iron binding capacity.unsaturated [Mass/Vol] 346 ug/dL Normal 110-370 [facility] Comment on above: Performed By: #### 5 0190-8 #### SHWETA ROCHA (44315) [facility] ([facility]) [address] [place] [address] Iron saturation [Mass fraction] 26 % Normal 25-45 [facility] Comment on above: Performed By: #### 5 0190-8 #### SHWETA ROCHA ([id number]) [facility] ([facility]) [address] [place] [address] Mitochondria Abon 04-01-2023 Mitochondria Ab IF Ql (S) Negative Normal Negative [facility] Comment on above: Performed By: #### 5 0023-1 #### JOLENE Cantu (27690) [facility] ([facility]) [address] [place] [address] 61387 Nuclear Abon 04-01-2023 Nuclear Ab Hep2 substrate Ql (S) Negative Normal Negative [facility] Comment on above: Result Comment: The Antinuclear Antibody (BEATRIZ) test was performed using indirect immunofluorescence assay with HEp-2 cells slide. Performed By: #### 5 0023-1 #### JOLENE Cantu (12385) [facility] ([facility]) [address] [place] [address] 49893 PHOSPHATIDYLETHANOL (PETH), WHOLE BLOOD, QUANTITATIVEon 04-01-2023 Laboratory report See Note Normal [facility] Comment on above: Result Comment: Auth orized individuals can access the [facility] Enhanced Report using the following link: [email or web address] Performed By: #### 5 902-2 #### JOLENE Cantu (30842) [facility] ([facility]) [address] [place] [address] 99135 PETH INTERPRETATION See Note Normal [facility] Comment on above: Result Comment: Phos phatidylethanol [...] developed and its performance characteristics determined by [facility]. It has not been cleared or approved by the U.S. Food and Drug Administration. This test was performed in a CLIA-certified laboratory and is intended for clinical purposes. Performed By: [facility] [address] [place] [address] 13484 Cardiology Nurse Practitioner: Miki Neal MD, PhD CLIA Number: [id number] Performed By: #### 5 902-2 #### JOLENE Cantu ([id number]) [facility] ([facility]) [address] [place] [address] Phosphatidylethanol 16:0-18:1 <10 [facility] Comment on above: Result Comment: PEth 16:0/18:1 (POPEth) Less than 10 ng/mL............Not detected Less than 20 ng/mL............Abstinence or light alcohol consumption 20 - 200 ng/mL................Moderate alcohol consumption Greater than 200 ng/mL........Heavy alcohol consumption or chronic alcohol use (Reference: Enrike Mirza and Noé Dan 2018 J. Forensic Sci) Performed By: #### 5 902-2 #### JOLENE Cantu (88492) [facility] ([facility]) [address] [place] [address] Phosphatidylethanol 16:0-18:2 <10 Normal [facility] Comment on above: Result Comment: Refe rence ranges are not well established. Performed By: #### 5 902-2 #### JOLENE Cantu ([id number]) [facility] ([facility]) [address] [place] [address] 46132 PT Coag (PPP) [Time]on 04-01 INR Coag (PPP) [Relative time] 0.9 Normal 0.9-1.1 [facility] Comment on above: Performed By: #### 5 902-2 #### JOLENE Cantu (49621) [facility] ([facility]) [address] [place] [address] 99051 Smooth muscle Abon Smooth muscle Ab IF Ql (S) Negative Normal Negative [facility] Comment on above: Performed By: #### 5 0023-1 #### JOLENE Cantu (01447) [facility] ([facility]) [address] [place] [address] 60646 Consent for Treatmenton Consent for Treatment [id number]#1.00T IFF Normal [facility] Discharge Instructionson Discharge Instructions [id number]#1.00 TIFF Normal [facility] ED Clinical Summaryon 2023 ED Clinical Summary Normal [facility] ED Note-Physicianon 03-26-19 ED Note-Physician Normal [facility] Comment on above: Result Comment: Elec tronically Signed By: Jorge Mcintosh DO\jesus\Date and Time Signed: 03/26/23 12:29 EST ED Patient Education Noteon 03-26-2023 ED Patient Education Note Normal [facility] ED Patient Summaryon 024 ED Patient Summary Normal [facility] Consent for Treatmenton 02-24 Consent for Treatment [id number]#1.00T IFF Normal [facility] Discharge Instructionson Discharge Instructions [id number]#1.00 TIFF Normal [facility] ED Clinical Summaryon 2022 ED Clinical Summary Normal [facility] ED Note-Physicianon 03-23-20 ED Note-Physician Normal [facility] Comment on above: Result Comment: Elec tronically Signed By: Landon Tidwell PA-C\.br\Date and Time Signed: 03/23/23 13:46 EST\.br\Electronically Co-Signed By: Nikhil Tubbs DO\.br\Date and Time Co-Signed: 03/23/23 15:51 EST ED Patient Education Noteon 03-23-2023 ED Patient Education Note Normal [facility] ED Patient Summaryon 023 ED Patient Summary Normal [facility] Consent for Treatmenton 02-23 Consent for Treatment [id number]#1.00T IFF [facility] Discharge Instructionson Discharge Instructions [id number]#1.00 TIFF Normal [facility] ED Clinical Summaryon 2022 ED Clinical Summary Normal [facility] ED Note-Physicianon 03-20-20 ED Note-Physician [facility] Comment on above: Result Comment: Elec tronically Signed By: Landon Tidwell PA-C.br\Date and Time Signed: 03/20/23 13:40 EST\.br\Electronically Co-Signed By: Elisa Sánchez DO.br\Date and Time Co-Signed: 03/20/23 15:13 EST ED Patient Education Noteon 03-20-2023 ED Patient Education Note Normal [facility] ED Patient Summaryon 023 ED Patient Summary Normal [facility] Auto Diffon 03-11-2023 Basophils/100 WBC (Bld) 0.3 % Normal 0.0-2.0 [facility] Comment on above: Order Comment: Order Added by Discern Expert. Performed By: #### 1 8185071, 5997865, 8183748, 0332234, 1671412, 2117800 ####[address] [place] [address] Basophils/Leukocytes Auto (Bld) [Pure # fraction] 0.0 E9/L Normal 0.0-0.2 [facility] Comment on above: Order Comment: Order Added by Discern Expert. Performed By: #### 1 2215184, 0034129, 9675328, 7196187, 9089708, 6689711 ####[address] [address] Eosinophils/100 WBC (Bld) 5.6 % Normal 0.0-8.0 [facility] Comment on above: Order Comment: Order Added by Discern Expert. Performed By: #### 1 2892216, 6527592, 0865429, 5197650, 2361232, 5605163 ####[address] [place] [address] Eosinophils/Leukocytes Auto (Bld) [Pure # fraction] 0.3 E9/L Normal 0.0-0.5 [facility] Comment on above: Order Comment: Order Added by Discern Expert. Performed By: #### 1 7909818, 2131758, 0744857, 5853271, 8050611, 5506909 ####[address] [place] [address] Lymphocytes/100 WBC (Bld) 28.4 % Normal 14.0-50.0 [facility] Comment on above: Order Comment: Order Added by Discern Expert. Performed By: #### 1 6982972, 4912823, 6814407, 0345424, 3290750, 0933397 ####[address] [address] Lymphocytes/Leukocytes Auto (Bld) [Pure # fraction] 1.8 E9/L Normal 1.0-4.0 [facility] Comment on above: Order Comment: Order Added by Discern Expert. Performed By: #### 1 0033565, 7641668, 7747533, 6001943, 3511698, 8239367 ####[address] [place] [address] Monocytes/100 WBC (Bld) 9.4 % Normal 4.0-14.0 [facility] Comment on above: Order Comment: Order Added by Discern Expert. Performed By: #### 1 6209501, 2278410, 1841356, 3627110, 3291770, 2734713 ####[address] [place] [address] Monocytes/Leukocytes Auto (Bld) [Pure # fraction] 0.6 E9/L Normal 0.2-1.0 [facility] Comment on above: Order Comment: Order Added by Gregory Expert. Performed By: #### 1 6015572, 2525957, 1151307, 0678360, 6099002, 1173233 ####[address] [place] [address] Neutrophils/100 WBC (Bld) 56.3 % Normal 36.0-75.0 [facility] Comment on above: Order Comment: Order Added by Gregory Expert. Performed By: #### 1 0832599, 2425572, 4677028, 6999151, 8556444, 7712474 ####[address] [place] [address] Neutrophils/Leukocytes Auto (Bld) [Pure # fraction] 3.5 E9/L Normal 2.0-7.5 [facility] Comment on above: Order Comment: Order Added by Gregory Expert. Performed By: #### 1 5195071, 3416629, 7995934, 0190910, 0687923, 6952037 ####[address] [place] [address] BMPon 03-11-2023 Anion gap [Moles/Vol] 9 mmol/L Normal 6-16 [facility] Comment on above: Performed By: #### 1 6337402, 5494034, 9599732, 5512641, 2438360, 3861608 ####[facility] [address] [place] [address] BUN/Creat Ratio 13 No Units Normal 10-20 [facility] Comment on above: Performed By: #### 1 5507163, 6006800, 7033276, 4778141, 7455074, 5808539 ####[facility] [address] [place] [address] Calcium [Mass/Vol] 8.5 mg/dL Low 8.9-11.1 [facility] Comment on above: Performed By: #### 1 5648085, 0668348, 3230151, 8342808, 2450975, 0635564 ####[facility] [address] [place] [address] Chloride [Moles/Vol] 105 mmol/L Normal 101-111 [facility] Comment on above: Performed By: #### 1 5820794, 3040391, 3019473, 3478327, 3764241, 0214064 ####[facility] [address] [place] [address] CO2 [Moles/Vol] 27 mmol/L Normal 21-31 [facility] Comment on above: Performed By: #### 1 2227916, 0914044, 9142642, 5913857, 4882922, 6341887 ####[facility] [address] [place] [address] Creatinine [Mass/Vol] 0.7 mg/dL Normal 0.5-1.3 [facility] Comment on above: Performed By: #### 1 6765166, 8996785, 1296971, 2155764, 1796660, 5969145 ####[facility] [address] [place] [address] Glucose [Mass/Vol] 104 mg/dL Normal 55-199 [facility] Comment on above: Performed By: #### 1 4102710, 6398559, 8372879, 9258827, 3517739, 8345028 ####[facility] [address] [place] [address] Potassium [Moles/Vol] 4.0 mmol/L Normal 3.5-5.3 [facility] Comment on above: Performed By: #### 1 9957228, 6913582, 6765106, 7267307, 7816882, 1607753 ####[facility] [address] [place] [address] Sodium [Moles/Vol] 137 mmol/L Normal 135-145 [facility] Comment on above: Performed By: #### 1 8300985, 3862150, 5254655, 0968738, 7865223, 2064397 ####[address] [address] Urea nitrogen [Mass/Vol] 9 mg/dL Normal 5-21 [facility] Comment on above: Performed By: #### 1 1841316, 0611604, 2558195, 7911502, 0537838, 0522961 ####[address] [address] CBC w/ Auto Diffon 3 Erythrocyte distribution width (RBC) [Ratio] 13.1 % Normal 10.9-14.2 [facility] Comment on above: Performed By: #### 1 1617836, 8930091, 8579905, 6921386, 4700755, 5540889 ####[address] [place] [address] Hematocrit (Bld) [Volume fraction] 46.1 % High 34.0-46.0 [facility] Comment on above: Performed By: #### 1 1006872, 2865349, 9224697, 6002142, 2920126, 6014103 ####[address] [place] [address] Hemoglobin (Bld) [Mass/Vol] 15.4 g/dL Normal 12.0-16.0 [facility] Comment on above: Performed By: #### 1 3035339, 4105067, 4373990, 1095098, 0625680, 6475660 ####[facility] [address] [place] [address] MCH (RBC) [Entitic mass] 32.0 pg Normal 27.0-34.0 [facility] Comment on above: Performed By: #### 1 5611477, 5821016, 4263220, 2751738, 8810780, 5042450 ####[address] MCHC (RBC) [Mass/Vol] 33.5 g/dL Normal 31.4-36.0 [facility] Comment on above: Performed By: #### 1 5750761, 3144240, 0607834, 4691704, 5842833, 0342123 ####[address] [address] MCV (RBC) [Entitic vol] 95.7 fL Normal 80.0-100.0 [facility] Comment on above: Performed By: #### 1 8811827, 4628780, 9946624, 4032587, 7112281, 9666286 ####[address] [address] Platelet mean volume (Bld) [Entitic vol] 9.0 fL Normal 6.4-10.8 [facility] Comment on above: Performed By: #### 1 4814941, 0822113, 4438120, 8300408, 7389989, 0052646 ####[address] [address] Platelets (Bld) [#/Vol] 248.0 E9/L Normal 150.0-500.0 [facility] Comment on above: Performed By: #### 1 2145699, 3565526, 8831145, 1130220, 3810601, 3183117 ####[address] [address] RBC (Bld) [#/Vol] 4.8 E12/L Normal 4.3-5.9 [facility] Comment on above: Performed By: #### 1 1629043, 1392800, 7770802, 9452853, 6052208, 6030435 ####[facility] [address] [place] [address] WBC corrected for nucl RBC Auto (Bld) [#/Vol] 6.2 E9/L Normal 4.0-11.0 [facility] Comment on above: Performed By: #### 1 3456203, 4292505, 4425971, 9961060, 0596889, 9760001 ####[facility] [address] [place] [address] CHEMISTRYOrdered By: SYSTEM SYSTEM on 03-11-2023 Albumin [...] for Treatmenton 02-22 Consent for Treatment [id number]#1.00T IFF Normal [facility] Discharge Instructionson Discharge Instructions [id number]#1.00 TIFF Normal [facility] ED Clinical Summaryon 2022 ED Clinical Summary Normal [facility] ED Note-Physicianon 03-11-20 ED Note-Physician Normal [facility] Comment on above: Result Comment: Elec tronically Signed By: Jorge Mcintosh DO\.br\Date and Time Signed: 03/11/23 10:39 EST ED Patient Education Noteon 03-11-2023 ED Patient Education Note Normal [facility] ED Patient Summaryon 023 ED Patient Summary Normal [facility] HEMATOLOGYOrdered By: SYSTEM SYSTEM on 03-11-2023 Basophils/100 [...] 6.2 E9/L Normal 4.0 - 11.0 E9/L [facility] HemeAutoSS Hep Func Panelon 03-11-2023 Albumin [Mass/Vol] 4.1 g/dL Normal 3.3-5.0 [facility] Comment on above: Performed By: #### 1 9716532, 8704210, 1811967, 3261486, 0016771, 7192431 ####[facility] [address] [place] [address] Albumin/Globulin [Mass ratio] 1.4 {ratio} Normal 1.1-2.2 [facility] Comment on above: Performed By: #### 1 8944456, 0535120, 9849849, 8682079, 6214699, 2544174 ####[facility] [address] [place] [address] Alk Phos 68 Int._Unit/L Normal 21-98 [facility] Comment on above: Performed By: #### 1 4770305, 6730878, 4759216, 6597819, 4980121, 1955052 ####[facility] [address] [place] [address] ALT 66 Int._Unit/L High 6-46 [facility] Comment on above: Performed By: #### 1 4200302, 4203045, 1863605, 0267762, 5974786, 2817922 ####[facility] [address] [place] [address] AST 51 Int._Unit/L High 5-43 [facility] Comment on above: Performed By: #### 1 7271757, 0681089, 6922057, 7803943, 5751869, 2108136 ####[facility] [address] [place] [address] Bili Direct 0.2 mg/dL Normal 0.1-0.4 [facility] Comment on above: Performed By: #### 1 4556794, 4018275, 3696034, 4125199, 3926576, 9873812 ####[facility] [address] [place] [address] Bili Indirect 0.4 mg/dL Normal 0.1-0.9 [facility] Comment on above: Performed By: #### 1 6953538, 2351994, 0235326, 2007133, 4512736, 4423137 ####[address] [place] [address] Bili Total 0.6 mg/dL Normal 0.0-1.1 [facility] Comment on above: Performed By: #### 1 5974868, 1175111, 4015579, 3075413, 0182943, 5377619 ####[address] [place] [address] Globulin (S) [Mass/Vol] 3.0 g/dL Normal 1.4-4.0 [facility] Comment on above: Performed By: #### 1 7676350, 3528526, 2697216, 8779662, 7864716, 2723490 ####[address] [address] Protein [Mass/Vol] 7.1 g/dL Normal 6.0-7.8 [facility] Comment on above: Performed By: #### 1 2209636, 6613454, 5071015, 6386214, 8326173, 3848959 ####[address] [place] [address] Lipase Levelon 03-11-2023 Lipase Lvl 15 unit/L Normal 13-58 [facility] Comment on above: Performed By: #### 1 5205662, 4207053, 7104628, 2441027, 3586045, 4929432 ####[address] [place] [address] MICRO OTHER TESTSOrdered By: Cheyanne Rosas on 03-11-2023 Rapid COV Int NEG Ctl Pass (03/11/23 9:34 AM) Normal [facility] Man Sero Rapid COV Int POS Ctl Pass (03/11/23 9:34 AM) Normal [facility] Man Sero SARS-CoV+SARS-CoV-2 (COVID-19) Ag IA.rapid Ql (Resp) Not Detected 1 (03/11/23 9:34 AM) Normal Not Detected [facility] Man Sero Comment on above: Interpretive Data: Susie marino [email or web address] Veritor System for Rapid Detection of SARS-CoV-2 [...] other viruses or pathogens; and, in the [facility], this test is only authorized for the duration of the declaration that circumstances exist justifying the authorization of emergency use of in vitro diagnostics for detection and/or diagnosis of the virus that causes COVID-19 under Section 564(b)(1) of the Act, 21 U.S.C. 360bbb-3(b)(1), unless the authorization is terminated or revoked sooner. Rapid COVID Antigen ([facility])on 03-11-2023 Rapid COV Int NEG Ctl Pass Normal Fis her [facility] Comment on above: Performed By: #### 2 [id number] ####[facility] [address] [place] [address] Rapid COV Int POS Ctl Pass Normal Fis her [facility] Comment on above: Performed By: #### 2 [id number] ####[facility] [address] [place] [address] SARS-CoV+SARS-CoV-2 (COVID-19) Ag IA.rapid Ql (Resp) Not detected Normal Not Detected [facility] Comment on above: Result Comment: The [employer] System for Rapid Detection of SARS-CoV-2 is [...] or revoked sooner. Performed By: #### 2 [id number] ####Kirby [facility] [address] [place] [address] eGFRon 03-11-2023 GFR/1.73 sq M.predicted among non-blacks MDRD (S/P/Bld) [Vol rate/Area] mL/min/{1.73_m2} Normal >=59 [facility] Comment on above: Order Comment: Order added by Discern Expert. Performed By: #### 1 9156747, 5957958, 9192829, 2186689, 1567724, 8259368 ####[facility] [address] [place] [address] US Liver limitedon 3 No focal intrahepati c lesions noted. The patient is status post cholecystectomy. MACRO: None Signed by: Harshad Tran 02/14/2023 7:30 AM Dictation workstation: [id number] [facility] MMODAL Interpreted By: Harshad Tran, STUDY: US ABDOMEN LIMITED LIVER; 02/13/2023 7:27 am INDICATION: Signs/Symptoms:Hx of Hep C. COMPARISON: None. ACCESSION NUMBER(S): [id number] ORDERING CLINICIAN: ANTONIO HUSAIN TECHNIQUE: Multiple images [...] of Hep C. COMPARISON: None. ACCESSION NUMBER(S): [id number] ORDERING CLINICIAN: ANTONIO HUSAIN TECHNIQUE: Multiple images [...] Harshad Tran 02/14/2023 7:30 AM Dictation workstation: [id number] [facility] Work Phone: US Liver limitedOrdered By: Harshad Tran on 02-14-2023 [facility] Work Phone: HCV RNA panel LINDSEY+probeon HCV RNA LINDSEY+probe [Log units/Vol] 7.46 Log IU/mL Normal [facility] Comment on above: Order Comment: Repor table Range: 15-100,000,000 IU/mL. The javier HCV is an in vitro nucleic acid amplification test for both the detection and quantitation of hepatitis C virus (HCV) RNA, in human EDTA plasma or serum, of HCV antibody positive or HCV-infected individuals on the javier Medbox0/8800 Systems. Dual probes are used to detect [...] the Molecular Diagnostic Laboratory, Department of Pathology, [facility]. Performed By: #### 5 0023-1 #### JOLENE Cantu ([id number]) [facility] ([facility]) [address] [place] [address] HCV RNA LINDSEY+probe Qn Detected Abnormal Not detected Un [facility] Comment on above: Order Comment: Repor table [...] the Molecular Diagnostic Laboratory, Department of Pathology, [facility]. Performed By: #### 5 0023-1 #### JOLENE Cantu ([id number]) [facility] ([facility]) [address] [place] [address] Hepatitis C virus Abon 02-13 HCV Ab Ql (S) Reactive Abnormal Nonreactive [facility] Comment on above: Result Comment: HCV antibody detected. HCV RNA PCR has been ordered to evaluate the possibility of a current infection. Results from patients taking biotin supplements or receiving high-dose biotin therapy should be interpreted with caution due to possible interference with this test. Providers may contact their local laboratory for further information. Performed By: #### 1 6128-1 #### JOLENE Cantu ([id number]) [facility] ([facility]) [address] [place] [address] US ABDOMEN LIMITED LIVERon 1 04-15-2022 US ABDOMEN LIMITED LIVER Interpreted By: Harshad Tran, STUDY: US ABDOMEN LIMITED LIVER; 02/13/2023 7:27 am INDICATION: Signs/Symptoms:Hx of Hep C. COMPARISON: None. ACCESSION NUMBER(S): [id number] ORDERING CLINICIAN: ANTONIO HUSAIN TECHNIQUE: Multiple images [...] Harshad Tran 02/14/2023 7:30 AM Dictation workstation: [id number] Normal [facility] US Liver limitedon 3 Radiology Study observation (narrative) [facility] Work Phone: Consent for Treatmenton 01-24 Consent for Treatment [id number]#1.00T IFF Normal [facility] Discharge Instructionson Discharge Instructions [id number]#1.00T IFF Normal [facility] ED Clinical Summaryon 2022 ED Clinical Summary Normal [facility] ED Note-Physicianon 02-13-20 ED Note-Physician Normal [facility] Comment on above: Result Comment: Elec tronically Signed By: Pedro Pablo Fletcher DO.br\Date and Time Signed: 02/12/23 20:43 EST ED Patient Education Noteon 02-12-2023 ED Patient Education Note Normal [facility] ED Patient Summaryon 023 ED Patient Summary Normal [facility] ED Note-Physicianon 02-09-20 ED Note-Physician Normal [facility] Comment on above: Result Comment: Elec tronically Signed By: Elisa Sánchez DO\.br\Date and Time Signed: 02/08/23 00:49 EST Consent for Treatmenton 01-23 Consent for Treatment [id number]#1.00T IFF Normal [facility] Discharge Instructionson Discharge Instructions [id number]#1.00 TIFF Normal [facility] ED Clinical Summaryon 2022 ED Clinical Summary Normal [facility] ED Patient Education Noteon 02-07-2023 ED Patient Education Note Normal [facility] ED Patient Summaryon 023 ED Patient Summary Normal [facility] ED Note-Physicianon 02-05-20 ED Note-Physician Normal [facility] Comment on above: Result Comment: Elec tronically Signed By: Robert Taylor PA-C\.br\Date and Time Signed: 01/29/23 12:25 EST\.br\Electronically Co-Signed By: Jorge Mcintosh DO\.br\Date and Time Co-Signed: 02/04/23 07:04 EST Consent for Treatmenton Consent for Treatment [id number]#1.00T IFF Normal [facility] Discharge Instructionson Discharge Instructions [id number]#1.00 TIFF Normal [facility] ED Clinical Summaryon 2022 ED Clinical Summary Normal [facility] ED Patient Education Noteon 01-29-2023 ED Patient Education Note Normal [facility] ED Patient Summaryon 023 ED Patient Summary Normal [facility] Consent for Treatmenton 12-25 Consent for Treatment [id number]#1.00T IFF Normal [facility] Discharge Instructionson Discharge Instructions [id number]#1.00 TIFF Normal [facility] ED Clinical Summaryon 2022 ED Clinical Summary Normal [facility] ED Note-Physicianon 01-23-20 ED Note-Physician Normal [facility] Comment on above: Result Comment: Elec tronically Signed By: Landon Tidwell PA-C.br\Date and Time Signed: 01/22/23 20:05 EDT\.br\Electronically Co-Signed By: Chance DO, Pedro Pablo S.\.br\Date and Time Co-Signed: 01/22/23 20:44 EDT ED Patient Education Noteon 01-22-2023 ED Patient Education Note Normal [facility] ED Patient Summaryon 023 ED Patient Summary Normal [facility] Drugs of abuse screen W Refl ex confirm panel (U)on 01-15-2023 Amphetamines Screen Ql (U) Negative Normal Presumptive Negative [facility] Ambulatory Comment on above: Order [...] By: #### 8 7428-9 #### DAVILA LEX ([id number]) [facility] ([facility]) [address] [place] [address] Barbiturates Screen Ql (U) Negative Normal Presumptive Negative [facility] Ambulatory Comment on above: Order [...] By: #### 8 7428-9 #### GIOVANNI BURNETT ([id number]) [facility] ([facility]) [address] [place] [address] Benzodiazepines Ql (U) Negative Normal Presu mptive Negative [facility] Ambulatory Comment on above: Order [...] By: #### 8 7428-9 #### GIOVANNI BURNETT ([id number]) [facility] ([facility]) [address] [place] [address] Benzoylecgonine Screen Ql (U) Negative Normal Presumptive Negative [facility] Ambulatory Comment on above: Order [...] By: #### 8 7428-9 #### GIOVANNI BURNETT ([id number]) [facility] ([facility]) [address] [place] [address] Cannabinoids Screen Ql (U) Negative Normal Presumptive Negative [facility] Ambulatory Comment on above: Order [...] By: #### 8 7428-9 #### GIOVANNI BURNETT (09503) [facility] ([facility]) [address] [place] [address] fentaNYL+Norfentanyl Screen Ql (U) Negative Normal Presumptive Negative [facility] Ambulatory Comment on above: Order [...] By: #### 8 7428-9 #### GIOVANNI BURNETT (25518) [facility] ([facility]) [address] [place] [address] Opiates Screen Ql (U) Positive Abnormal Presum ptive Negative [facility] Ambulatory Comment on above: Order [...] By: #### 8 7428-9 #### GIOVANNI BURNETT ([id number]) [facility] ([facility]) [address] [place] [address] oxyCODONE+oxyMORphone Screen Ql (U) Negative Normal Presumptive Negative [facility] Ambulatory Comment on above: Order [...] By: #### 8 7428-9 #### GIOVANNI BURNETT ([id number]) [facility] ([facility]) [address] [place] [address] Phencyclidine Ql (U) Negative Normal Presump tive Negative [facility] Ambulatory Comment on above: Order [...] By: #### 8 7428-9 #### GIOVANNI BURNETT ([id number]) [facility] ([facility]) [facility] [place] [id number] Opiates Confirm (U) [Mass/Vo l]on 01-15-2023 6-Monoacetylmorphine (6-PERLITA) Confirm (U) [Mass/Vol] <25 Normal <25 [facility] Ambulatory Comment on above: Order [...] By: #### 1 7384-9 #### JOLENE Cantu ([id number]) [facility] ([facility]) [address] [place], [place] [id number] Codeine Confirm (U) [Mass/Vol] <50 Normal <50 [facility] Ambulatory Comment on above: Order [...] By: #### 1 7384-9 #### JOLENE Cantu (45591) [facility] ([facility]) [address] [place] [address] HYDROcodone cutoff Confirm (U) [Mass/Vol] <25 Normal <25 [facility] Ambulatory Comment on above: Order Comment: [...] By: #### 1 7384-9 #### JOLENE Cantu (74850) [facility] ([facility]) [address] [place] [address] HYDROmorphone Confirm (U) [Mass/Vol] <25 Normal <25 [facility] Ambulatory Comment on above: Order [...] By: #### 1 7384-9 #### JOLENE Cantu ([id number]) [facility] ([facility]) [address] [place] [address] Morphine Confirm (U) [Mass/Vol] 207 ng/mL High <50 [facility] Ambulatory Comment on above: Order [...] By: #### 1 7384-9 #### JOLENE Cantu ([id number]) [facility] ([facility]) [address] [place] [address] Norhydrocodone Confirm (U) [Mass/Vol] <25 Normal <25 [facility] Ambulatory Comment on above: Order [...] By: #### 1 7384-9 #### JOLENE Cantu (81763) [facility] ([facility]) [address] [place] [address] Noroxycodone Confirm (U) [Mass/Vol] 711 ng/mL High <25 [facility] Ambulatory Comment on above: Order [...] By: #### 1 7384-9 #### JOLENE Cantu ([id number]) [facility] ([facility]) [address] [place] [address] oxyCODONE Confirm (U) [Mass/Vol] 63 ng/mL High <25 [facility] Ambulatory Comment on above: Order [...] By: #### 1 7384-9 #### JOLENE Cantu ([id number]) [facility] ([facility]) [address] [place] [address] oxyMORphone Confirm (U) [Mass/Vol] <25 Normal <25 [facility] Ambulatory Comment on above: Order [...] By: #### 1 7384-9 #### JOLENE Cantu ([id number]) [facility] ([facility]) [address] [place] [address] Consent for Treatmenton 12-24 Consent for Treatment [id number]#1.00T IFF Normal [facility] Discharge Instructionson Discharge Instructions [id number]#1.0 0TIFF Normal [facility] ED Clinical Summaryon 2022 ED Clinical Summary Normal [facility] ED Note-Physicianon 01-15-20 ED Note-Physician Normal [facility] Comment on above: Result Comment: Elec tronically Signed By: Eden Slaomon\.br\Date and Time Signed: 01/14/23 15:35 EDT\.br\Electronically Co-Signed By: Jorge Mcintosh DO\.br\Date and Time Co-Signed: 01/14/23 15:43 EDT ED Patient Education Noteon 01-14-2023 ED Patient Education Note Normal [facility] ED Patient Summaryon 023 ED Patient Summary Normal [facility] ED Note-Physicianon 01-14-20 ED Note-Physician Normal [facility] Comment on above: Result Comment: Elec tronically Signed By: Balbina Bryant M.D.\.br\Date and Time Signed: 01/13/23 01:40 EDT XR Spine Lumbosacral 2 or 3 Viewson 01-13-2023 XR Spine Lumbosacral 2 or 3 Views Normal [facility] Consent for Treatmenton 12-24 Consent for Treatment [id number]#1.00T IFF Normal [facility] Discharge Instructionson Discharge Instructions [id number]#1.00T IFF Normal [facility] ED Clinical Summaryon 2022 ED Clinical Summary Normal [facility] ED Note-Nursingon 01-12-2023 ED Note-Nursing pt given d/c instructions and educated on importance of follow up. pt educated on new medication. pt verbalized understanding of instructions and readiness for d/c. pt was wheeled to her cousins car in stable condition. Normal [facility] ED Note-Nursing Normal [facility] ED Patient Education Noteon 01-12-2023 ED Patient Education Note Normal [facility] ED Patient Summaryon 023 ED Patient Summary [facility] Consent for Treatmenton 12-23 Consent for Treatment [id number]#1.00T IFF Normal [facility] Discharge Instructionson Discharge Instructions [id number]#1.00T IFF Normal [facility] ED Clinical Summaryon 2022 ED Clinical Summary Normal [facility] ED Note-Physicianon 01-11-20 ED Note-Physician Normal [facility] Comment on above: Result Comment: Elec tronically Signed By: Nikhil Tubbs DO.br\Date and Time Signed: 01/10/23 11:50 EDT ED Patient Education Noteon 01-10-2023 ED Patient Education Note Normal [facility] ED Patient Summaryon 023 ED Patient Summary Normal [facility] CT Spine Lumbar w/o Contrast on 01-05-2023 CT Spine Lumbar w/o Contrast Normal [facility] Discharge Instructionson Discharge Instructions [id number]#1.00 TIFF Normal [facility] ED Clinical Summaryon 2022 ED Clinical Summary Normal [facility] ED Note-Physicianon 01-06-20 ED Note-Physician Normal [facility] Comment on above: Result Comment: Elec tronically Signed By: Annette Watkins, Balbina Sparks\.br\Date and Time Signed: 01/05/23 00:31 EDT ED Patient Education Noteon 01-05-2023 ED Patient Education Note Normal [facility] ED Patient Summaryon 023 ED Patient Summary Normal [facility] RAD - Preliminary Cat Scan R eporton 01-05-2023 RAD - Preliminary Cat Scan Report [id number]#1.00 TIFF Normal [facility] XR Hip 2-3 Views Left + Pelv kavin 01-05-2023 XR Hip 2-3 Views Left + Pelvis Normal [facility] Consent for Treatmenton 12-23 Consent for Treatment [id number]#1.00T IFF Normal [facility] Consent for Treatmenton 12-23 Consent for Treatment [id number]#1.00T IFF Normal [facility] Discharge Instructionson Discharge Instructions [id number]#1.00 TIFF Normal [facility] ED Clinical Summaryon 2022 ED Clinical Summary Normal [facility] ED Note-Physicianon 01-03-20 ED Note-Physician Normal [facility] Comment on above: Result Comment: Elec tronically Signed By: Landon Tidwell PA-C.br\Date and Time Signed: 01/02/23 18:55 EDT\.br\Electronically Co-Signed By: Nikhil Tubbs DO.br\Date and Time Co-Signed: 01/02/23 20:25 EDT ED Patient Education Noteon 01-02-2023 ED Patient Education Note Normal [facility] ED Patient Summaryon ED Patient Summary Normal [facility] ED Note-Physicianon 01-02-20 ED Note-Physician Normal [facility] Comment on above: Result Comment: Elec tronically Signed By: Landon Tidwell PA-C.br\Date and Time Signed: 01/01/23 00:28 EDT\.br\Electronically Co-Signed By: Elisa Sánchez DO.br\Date and Time Co-Signed: 01/01/23 01:37 EDT Consent for Treatmenton Consent for Treatment [id number]#1.00T IFF Normal [facility] Discharge Instructionson Discharge Instructions [id number]#1.00 TIFF Normal [facility] ED Clinical Summaryon 2022 ED Clinical Summary [facility] ED Patient Education Noteon 12-31-2022 ED Patient Education Note Normal [facility] ED Patient Summaryon 023 ED Patient Summary Normal [facility] XR lumbar spine 6V w bending on 12-28-2022 XR lumbar spine 6V w bending [facility] [place] [address] XRay Report Signed Patient: Jerad Tracy MR#: [id number] 49 : 1975 Acct:[id number] Age/Sex: 47 / F ADM Date: 12/28/22 Loc: XD Room: Type: [facility] Attending Dr: Rose Marie RUFF Copies to: [...] Declan Bailey M.D.12/28/2022 3:27 PM Dictation Location: [place] [address] Transcribed By: [facility] 12/28/221526 Dictated By: Declan Bailey DO 12/28/22 1525 Signed By: 12/28/221526 Normal [facility] Consent for Treatmenton Consent for Treatment [id number]#1.00C D:127 Normal [facility] Discharge Instructionson Discharge Instructions [id number]#1.00 CD:127 Normal [facility] ED Clinical Summaryon 2022 ED Clinical Summary Normal [facility] ED Note-Physicianon 12-27-19 ED Note-Physician Normal [facility] Comment on above: Result Comment: Elec tronically Signed By: Robert Taylor PA-C\.br\Date and Time Signed: 12/26/22 17:06 EDT\.br\Electronically Co-Signed By: Balbina Bryant M.D.\.br\Date and Time Co-Signed: 12/26/22 17:28 EDT ED Patient Education Noteon 12-26-2022 ED Patient Education Note Normal [facility] ED Patient Summaryon 023 ED Patient Summary Normal [facility] XR Spine Lumbosacral 2 or 3 Viewson 12-24-2022 XR Spine Lumbosacral 2 or 3 Views Normal [facility] Consent for Treatmenton Consent for Treatment [id number]#1.00C D:127 Normal [facility] Discharge Instructionson Discharge Instructions [id number]#1.00C D:127 Normal [facility] ED Clinical Summaryon 2022 ED Clinical Summary [facility] ED Note-Physicianon 12-24-19 ED Note-Physician Normal [facility] Comment on above: Result Comment: Elec tronically Signed By: Nikhil Tubbs DO\.br\Date and Time Signed: 12/23/22 19:56 EDT ED Patient Education Noteon 12-23-2022 ED Patient Education Note Normal [facility] ED Patient Summaryon 023 ED Patient Summary Normal [facility] Progress Note-Nurseon 2022 Progress Note-Nurse left without papers Normal [facility] ED Note-Physicianon 12-23-19 ED Note-Physician Normal [facility] Comment on above: Result Comment: Elec tronically Signed By: Landon Tidwell PA-C\.br\Date and Time Signed: 12/07/22 23:23 EDT\.br\Electronically Co-Signed By: Chandana Varela MD\.br\Date and Time Co-Signed: 12/22/22 19:17 EDT ED Note-Physician Normal [facility] Comment on above: Result Comment: Elec tronically Signed By: Robert Taylor PA-C\.br\Date and Time Signed: 12/18/22 13:31 EDT\.br\Electronically Co-Signed By: Jorge Mcintosh DO\.br\Date and Time Co-Signed: 12/22/22 18:47 EDT Consent for Treatmenton 11-24 Consent for Treatment [id number]#1.00C D:127 Normal [facility] Discharge Instructionson Discharge Instructions [id number]#1.00C D:127 Normal [facility] ED Clinical Summaryon 2022 ED Clinical Summary Normal [facility] ED Patient Education Noteon 12-18-2022 ED Patient Education Note Normal [facility] ED Patient Summaryon 023 ED Patient Summary Normal [facility] ED Note-Physicianon 12-15-19 ED Note-Physician Normal [facility] Comment on above: Result Comment: Elec tronically Signed By: Angelic Reece PA-C\.br\Date and Time Signed: 12/13/22 23:26 EDT\.br\Electronically Co-Signed By: Nikhil Tubbs DO\.br\Date and Time Co-Signed: 12/14/22 06:46 EDT Consent for Treatmenton 11-24 Consent for Treatment [id number]#1.00C D:127 Normal [facility] Discharge Instructionson Discharge Instructions [id number]#1.00C D:127 [facility] Discharge Instructions [id number]#1.00C D:127 Normal [facility] ED Clinical Summaryon 2022 ED Clinical Summary Normal [facility] ED Clinical Summary Normal [facility] ED Note-Physicianon 12-14-19 ED Note-Physician Normal [facility] Comment on above: Result Comment: Elec tronically Signed By: Sam Dowd PA-C\.br\Date and Time Signed: 12/12/22 23:57 EDT\.br\Electronically Co-Signed By: Elisa Sánchez DO\.br\Date and Time Co-Signed: 12/13/22 01:13 EDT ED Patient Education Noteon 12-13-2022 ED Patient Education Note Normal [facility] ED Patient Education Note Normal [facility] ED Patient Summaryon 023 ED Patient Summary Normal [facility] ED Patient Summary Normal [facility] MRI Spine Lumbar w/o Contras ton 12-13-2022 MRI Spine Lumbar w/o Contrast Normal [facility] Monitor Recordon 12-13-2022 Monitor Record [id number]#1.00 CD:127 Normal [facility] RAD - Preliminary Cat Scan R eporton 12-13-2022 RAD - Preliminary Cat Scan Report [id number]#1.00C D:127 Normal [facility] SEROLOGYOrdered By: Zoë mosquera on 12-13-2022 HCG.beta subunit (U) [Moles/Vol] Negative Normal [facility] Man Sero U BetaHcg Qualon 12-13-2022 HCG.beta subunit (U) [Moles/Vol] Negative Normal [facility] Comment on above: Performed By: #### 2 [id number] ####[facility] [address] [place] [address] UA With Cult Reflexon 2022 Bacteria LM Ql (Urine sed) TRACE Normal Trace [facility] Comment on above: Performed By: #### 1 [id number] ####[facility] [address] [place] [address] Bilirubin Ql (U) 1+ Abnormal Negative [facility] Comment on above: Performed By: #### 1 [id number] ####[facility] [address] [place] [address] Calcium oxalate crystals LM Ql (Urine sed) Present Normal [facility] Comment on above: Performed By: #### 1 [id number] ####[facility] [address] [place] [address] Clarity (U) SL CLOUDY Invalid Interpretation Code [facility] Comment on above: Performed By: #### 1 [id number] ####[facility] [address] [place] [address] Color (U) YELLOW Normal Yellow [facility] Comment on above: Performed By: #### 1 [id number] ####[facility] [address] [facility] [place] [address] Crystals LM Ql (Urine sed) Present Normal [facility] Comment on above: Performed By: #### 1 [id number] ####[facility] [address] [place] [address] Epithelial cells.squamous LM.HPF (Urine sed) [#/Area] /[HPF] Normal 0-2 [facility] Comment on above: Performed By: #### 1 [id number] ####[facility] [address] [place] [address] Glucose Test strip (U) [Mass/Vol] Negative Normal Negative [facility] Comment on above: Performed By: #### 1 [id number] ####[facility] [address] [place] [address] Hemoglobin Ql (U) Negative Normal Negative [facility] Comment on above: Performed By: #### 1 1456233 ####[facility] [address] [place] [address] Ketones (U) [Mass/Vol] TRACE Invalid Interpretation Code Negative [facility] Comment on above: Performed By: #### 1 [id number] ####[facility] [address] [place] [address] [place].plasma/[place] .RBC (Bld) [Mass ratio] 0-3 Normal 0-3 [facility] Comment on above: Performed By: #### 1 [id number] ####[facility] [address] [place] [address] Mucus Ql (Urine sed) 3+ Normal [facility] Comment on above: Performed By: #### 1 3797317 ####[facility] [address] [place] [address] Nitrite Ql (U) Negative Normal Negative [facility] Comment on above: Performed By: #### 1 [id number] ####[facility] [address] [facility] [place] [address] pH (U) 6.0 [pH] Invalid Interpretation Code 5.0-9.0 [facility] Comment on above: Performed By: #### 1 [id number] ####[place] [address] Protein (U) [Mass/Vol] 1+ Abnormal Negative Fi [facility] Comment on above: Performed By: #### 1 [id number] ####[place] [address] Specific gravity (U) [Rel density] >=1.030 Invalid Interpretation Code 1.005-1.030 [facility] Comment on above: Performed By: #### 1 [id number] ####[place] [address] Type of Urine collection method Clean Catch Normal [facility] Comment on above: Performed By: #### 1 [id number] ####[place] [address] Urobilinogen Qn (U) 0.2 {Jan'U}/dL Normal 0.0-1.0 [facility] Comment on above: Performed By: #### 1 7821212 ####[place] [address] WBC Auto Ql (U) Negative Normal Negative [facility] Comment on above: Performed By: #### 1 0001831 ####[place] [address] WBC LM.HPF (Urine sed) [#/Area] 0-5 Normal 0-5 [facility] Comment on above: Performed By: #### 1 [id number] ####[place] [address] URINALYSISOrdered By: Zoë gordon on 12-13-2022 Bacteria LM Ql (Urine sed) Trace /HPF Normal Trace/HPF FT UA Auto SS Bilirubin Ql (U) 1+ *ABN* (12/13/22 5:52 PM) Invalid Interpretation Code Negative FT UA Auto SS Calcium oxalate crystals LM Ql (Urine sed) Present (12/13/22 5:52 PM) Normal [facility] UA Auto SS Clarity (U) SL CLOUDY Invalid Interpretation Code [facility] UA Auto SS Color (U) Yellow [...] Interpretation Code Negative [facility] UA Auto SS [place].plasma/[place] .RBC (Bld) [Mass ratio] 0-3 /HPF Normal [...] [facility] UA Auto SS Urobilinogen Qn (U) 0.2507108 {Jan'U}/dL Normal 0.0 - 1.0 EU/dL [facility] UA Auto SS WBC Auto Ql (U) Negative (12/13/22 5:52 PM) Normal Negative [facility] UA Auto SS WBC LM.HPF (Urine sed) [#/Area] 0-5 /HPF Normal 0-5/HPF [facility] UA Auto SS XR Chest Single Viewon 12-13 XR Chest Single View Normal Fish er [facility] Auto Diffon 12-12-2022 Basophils/100 WBC (Bld) 0.2 % Normal 0.0-2.0 [facility] Comment on above: Order Comment: Order Added by Discern Expert. Performed By: #### 2 705252, 4742645, 5999224, 73871457 ####[address] [address] Basophils/Leukocytes Auto (Bld) [Pure # fraction] 0.0 E9/L Normal 0.0-0.2 [facility] Comment on above: Order Comment: Order Added by Discern Expert. Performed By: #### 2 772746, 0574742, 0983165, 88905346 ####[address] [address] Eosinophils/100 WBC (Bld) 0.2 % Normal 0.0-8.0 [facility] Comment on above: Order Comment: Order Added by Discern Expert. Performed By: #### 2 173806, 6535110, 9417467, 99010202 ####[address] [address] Eosinophils/Leukocytes Auto (Bld) [Pure # fraction] 0.0 E9/L Normal 0.0-0.5 [facility] Comment on above: Order Comment: Order Added by Discern Expert. Performed By: #### 2 109514, 9637265, 7927440, 82484042 ####[address] [address] Lymphocytes/100 WBC (Bld) 8.3 % Low 14.0-50.0 [facility] Comment on above: Order Comment: Order Added by Discern Expert. Performed By: #### 2 213835, 1500232, 4192716, 95295946 ####[address] [address] Lymphocytes/Leukocytes Auto (Bld) [Pure # fraction] 1.2 E9/L Normal 1.0-4.0 [facility] Comment on above: Order Comment: Order Added by Discern Expert. Performed By: #### 2 471292, 6521704, 0125516, 31696559 ####[place] [address] [place] [address] Monocytes/100 WBC (Bld) 2.4 % Low 4.0-14.0 [facility] Comment on above: Order Comment: Order Added by Discern Expert. Performed By: #### 2 155862, 8863876, 6175012, 96714591 ####[facility] [address] [place] [address] Monocytes/Leukocytes Auto (Bld) [Pure # fraction] 0.3 E9/L Normal 0.2-1.0 [facility] Comment on above: Order Comment: Order Added by Gregory Expert. Performed By: #### 2 339769, 5975261, 0784140, 29694282 ####[address] [address] Neutrophils/100 WBC (Bld) 88.9 % High 36.0-75.0 [facility] Comment on above: Order Comment: Order Added by Gregory Expert. Performed By: #### 2 859221, 0631628, 8846669, 28573466 ####[address] [address] Neutrophils/Leukocytes Auto (Bld) [Pure # fraction] 12.7 E9/L High 2.0-7.5 [facility] Comment on above: Order Comment: Order Added by Discern Expert. Performed By: #### 2 656311, 6116063, 9617691, 70320939 ####[place] [address] [place] [address] BMPon 12-12-2022 Anion gap [Moles/Vol] 12 mmol/L Normal 6-16 [facility] Comment on above: Performed By: #### 2 670241, 8276716, 7942841, 18544323 ####[address] [address] Calcium [Mass/Vol] 8.6 mg/dL Low 8.9-11.1 [facility] Comment on above: Performed By: #### 2 696605, 7894992, 2384213, 60371876 ####[facility] [address] [place] [address] Chloride [Moles/Vol] 110 mmol/L Normal 101-111 [facility] Comment on above: Performed By: #### 2 758036, 6164382, 9399196, 06750359 ####[facility] [address] [place] [address] CO2 [Moles/Vol] 19 mmol/L Low 21-31 [facility] Comment on above: Performed By: #### 2 275282, 9399639, 6881625, 64120424 ####[facility] [address] [place] [address] Creatinine [Mass/Vol] 0.9 mg/dL Normal 0.5-1.3 [facility] Comment on above: Performed By: #### 2 456987, 2068872, 9798948, 42827857 ####[facility] [address] [place] [address] Glucose [Mass/Vol] 132 mg/dL Normal 55-199 [facility] Comment on above: Result Comment: If t his glucose result represents a fasting glucose, interpretation should refer to the following reference range: 55-99 mg/dL Performed By: #### 2 820408, 9064252, 5155443, 76507395 ####[facility] [address] [place] [address] Potassium [Moles/Vol] 4.7 mmol/L Normal 3.5-5.3 [facility] Comment on above: Result Comment: 'Spe cimen hemolyzed. Result may be affected. Redraw is recommended.' Performed By: #### 2 860829, 6894123, 3893646, 19342807 ####[facility] [address] [place] [address] Sodium [Moles/Vol] 136 mmol/L Normal 135-145 [facility] Comment on above: Performed By: #### 2 272677, 7168323, 4383298, 03423551 ####[facility] [address] [place] [address] Urea nitrogen [Mass/Vol] 17 mg/dL Normal 5-21 [facility] Comment on above: Performed By: #### 2 671831, 9407779, 7956206, 41627396 ####[facility] [address] [place] [address] Urea nitrogen/Creatinine [Mass ratio] 19 No Units Normal 10-20 [facility] Comment on above: Performed By: #### 2 672227, 5686786, 2320429, 36101273 ####[facility] [address] [place] [address] CBC w/ Auto Diffon 3 Erythrocyte distribution width (RBC) [Ratio] 13.1 % Normal 10.9-14.2 [facility] Comment on above: Performed By: #### 2 882061, 3261037, 8358894, 18245626 ####[facility] [address] [place] [address] Hematocrit (Bld) [Volume fraction] 42.4 % Normal 34.0-46.0 [facility] Comment on above: Performed By: #### 2 170716, 7205887, 7381709, 72694529 ####[facility] [address] [place] [address] Hemoglobin (Bld) [Mass/Vol] 14.1 g/dL Normal 12.0-16.0 [facility] Comment on above: Performed By: #### 2 601720, 8787728, 9663724, 41117450 ####[facility] [address] [place] [address] MCH (RBC) [Entitic mass] 32.5 pg Normal 27.0-34.0 [facility] Comment on above: Performed By: #### 2 503701, 2859038, 2228593, 92604749 ####[address] [address] MCHC (RBC) [Mass/Vol] 33.4 g/dL Normal 31.4-36.0 [facility] Comment on above: Performed By: #### 2 728782, 1714782, 8247989, 94465185 ####[place] [address] MCV (RBC) [Entitic vol] 97.5 fL Normal 80.0-100.0 [facility] Comment on above: Performed By: #### 2 715953, 9862668, 2334339, 03654907 ####[place] [address] Platelet mean volume (Bld) [Entitic vol] 8.6 fL Normal 6.4-10.8 [facility] Comment on above: Performed By: #### 2 592677, 1186931, 8901611, 93245319 ####[address] [address] Platelets (Bld) [#/Vol] 281.0 E9/L Normal 150.0-500.0 [facility] Comment on above: Performed By: #### 2 292890, 3289602, 3688353, 89726757 ####[address] [address] RBC (Bld) [#/Vol] 4.4 E12/L Normal 4.3-5.9 [facility] Comment on above: Performed By: #### 2 544972, 1497654, 9059069, 45883570 ####[address] [address] WBC corrected for nucl RBC Auto (Bld) [#/Vol] 14.3 E9/L High 4.0-11.0 [facility] Comment on above: Performed By: #### 2 868340, 7324101, 1621483, 57173901 ####[facility] [address] [place] [address] CHEMISTRYOrdered By: SYSTEM SYSTEM on 12-12-2022 Anion gap [Moles/Vol] 12 mmol/L Normal 6 - 16 mEq/L F C Remisol Calcium [Mass/Vol] 8.6 mg/dL Low 8.9 - 11. 1 mg/dL [facility] Remisol Chloride [Moles/Vol] 110 mmol/L Normal 101 - 1 11 mmol/L FT [facility] CO2 [Moles/Vol] 19 mmol/L Low 21 - 31 mmol/L FT [facility] Creatinine [Mass/Vol] 0.9 mg/dL Normal 0.5 - 1.3 mg/dL [facility] GFR/1.73 sq M.predicted among non-blacks MDRD (S/P/Bld) [Vol rate/Area] 80 mL/min/1.73 m2 Normal >=59mL/min/1 .73 m2 [facility] Chem S Glucose [Mass/Vol] 132 mg/dL Normal 55 - 199 mg/dL [facility] Potassium [Moles/Vol] 4.7 mmol/L Normal 3.5 - 5.3 mmol/L [facility] Comment on above: Result Comment: 'Spe cimen hemolyzed. Result may be affected. Redraw is recommended.' Sodium [Moles/Vol] 136 mmol/L Normal 135 - 145 mmol/L [facility] Urea nitrogen [Mass/Vol] 17 mg/dL Normal 5 - 21 mg/dL [facility] Remisol Urea nitrogen/Creatinine [Mass ratio] 19 mg/mg Normal 10 - 20 [facility] Consent for Treatmenton 11-24 Consent for Treatment [id number]#1.00C D:127 Normal [facility] ED Note-Nursingon 12-12-2022 ED Note-Nursing Patient complaint during registration not SOB. EKG done when patient reports SOB Normal [facility] ED Note-Nursing This RN requests to observe patient due to paresthesia, per PA. Sam Okay to put patient back in waiting room Normal [facility] HEMATOLOGYOrdered By: SYSTEM SYSTEM on 09-20-2023 Basophils/100 WBC (Bld) 0.2 % Normal 0.0 [...] 8.6 fL Normal 6.4 - 10.8 fL [facility] HemeAutoSS Platelets (Bld) [#/Vol] 281.0 E9/L Normal 150.0 - 500.0 E9/L [facility] HemeAutoSS RBC (Bld) [#/Vol] 4.4 E12/L Normal 4.3 - 5.9 E12/L [facility] HemeAutoSS WBC corrected for nucl RBC Auto (Bld) [#/Vol] 14.3 E9/L High 4.0 - 11.0 E9/L [facility] HemeAutoSS RAD - MRI Screening Formon 0 12-12-2022 RAD - MRI Screening Form [id number]#1.00 CD:127 Normal [facility] eGFRon 12-12-2022 GFR/1.73 sq M.predicted among non-blacks MDRD (S/P/Bld) [Vol rate/Area] 80 mL/min/1.73 m2 Normal >=59 [facility] Comment on above: Order Comment: Order added by Discern Expert. Result Comment: Machine Feeder simba kidney disease could be indicated at eGFR's of less than 60 mL/min/1.73m2. Kidney failure is indicated at less than 15 mL/min/1.73m2. Performed By: #### 2 092228, 9394704, 3939867, 28507689 ####[facility] [address] [place] [address] Alanine aminotransferase [En zymatic activity/volume] in Serum or PlasmaOrdered By: Mary Beth Bullimore on 12-10-2022 ALT [Catalytic activity/Vol] 39 U/L 7-52 [facility] Albumin [Mass/volume] in Ser um or Plasma by Bromocresol green (BCG) dye binding methoOrdered By: Mary Beth Bullimore on 12-10-2022 Albumin BCG dye [Mass/Vol] 3.7 g/dL 3.5-5.7 [facility] Alkaline phosphatase [Enzyma tic activity/volume] in Serum or PlasmaOrdered By: Mary Beth Bullimore on 12-10-2022 ALP [Catalytic activity/Vol] 70 U/L 34-104 [facility] Amorphous urine sedimentOrde red By: Deb Carmichael on 12-10-2022 Amorphous sediment LM Ql (Urine sed) 2+ [LPF] [facility] Aspartate aminotransferase [ Enzymatic activity/volume] in Serum or PlasmaOrdered By: Mary Beth Sloan on 12-10-2022 AST [Catalytic activity/Vol] 28 U/L 13-39 [facility] Automated erythrocytes count in urine sediment (number/area)Ordered By: Deb Carmichael on 12-10-2022 RBC Auto (Urine sed) [#/Area] 10-19 [HPF] 0-4 [facility] Automated leukocytes count i n urine sediment (number/area)Ordered By: Deb Carmichael on 12-10-2022 WBC Auto (Urine sed) [#/Area] 3-4 [HPF] 0-4 [facility] Basophils Auto (Bld) [#/Vol] Ordered By: Mary Beth Sloan on 12-10-2022 Basophils (Bld) [#/Vol] 0.1 10*3/uL 0.0-0.2 [facility] Basophils/100 WBC Auto (Bld) Ordered By: Mary Beth Sloan on 12-10-2022 Basophils/100 WBC (Bld) 0.5 % . [facility] Bilirubin Test strip Ql (U)O rdered By: Deb Carmichael on 12-10-2022 Bilirubin Ql (U) Negative Negative [facility] Bilirubin.total [Mass/volume ] in Serum or PlasmaOrdered By: Mary Beth Solan on 12-10-2022 Bilirubin [Mass/Vol] 0.3 mg/dL 0.3-1.0 [facility] Calcium [Mass/volume] in Ser um or PlasmaOrdered By: Mary Beth Sloan on 12-10-2022 Calcium [Mass/Vol] 8.3 mg/dL 8.6-10.3 [facility] Carbon dioxide, total [Moles /volume] in Serum or PlasmaOrdered By: Mary Beth Croweimceline on 12-10-2022 CO2 [Moles/Vol] 22.2 mmol/L 21.0-31.0 [facility] Chloride [Moles/volume] in S saw or PlasmaOrdered By: Mary Beth Sloan on 12-10-2022 Chloride [Moles/Vol] 112 mmol/L 98-107 [facility] Color Auto (U)Ordered By: Marva Carmichael on 12-10-2022 Color (U) Yellow Yellow [facility] Creatinine [Mass/volume] in Serum or PlasmaOrdered By: Mary Beth Chavezore on 12-10-2022 Creatinine [Mass/Vol] 0.77 mg/dL 0.60-1.20 [facility] Eosinophils Auto (Bld) [#/Vo l]Ordered By: Mary Beth Croweimore on 12-10-2022 Eosinophils (Bld) [#/Vol] 0.2 10*3/uL 0.0-0.45 [facility] Eosinophils/100 WBC Auto (Bl d)Ordered By: Mary Beth Croweimore on 12-10-2022 Eosinophils/100 WBC (Bld) 1.7 % . [facility] Erythrocyte distribution wid th Auto (RBC) [Ratio]Ordered By: Mary Beth Sloan on 12-10-2022 Erythrocyte distribution width (RBC) [Ratio] 13.3 % 11.9-15.3 [facility] Globulin Calc (S) [Mass/Vol] Ordered By: Mary Beth Slona on 12-10-2022 Globulin (S) [Mass/Vol] 3.1 g/dL [facility] Glucose [Mass/volume] in Ser um or PlasmaOrdered By: Mary Beth Sloan on 12-10-2022 Glucose [Mass/Vol] 111 mg/dL 70-100 [facility] Comment on above: ADA recommended refe rence rangeRandom Glucose Reference Range is dependent on time and content of last meal. Glucose of more than 200 mg/dL in a nonstressed, ambulatory subject supports the diagnosis of Diabetes Mellitus. Hematocrit Auto (Bld) [Volum e fraction]Ordered By: Mary Beth Sloan on 12-10-2022 Hematocrit (Bld) [Volume fraction] 39.3 % 34.0-46.4 [facility] Hemoglobin [Mass/volume] in BloodOrdered By: Mary Beth Sloan on 12-10-2022 Hemoglobin (Bld) [Mass/Vol] 13.4 g/dL 11.8-15.4 [facility] Ketones Auto test strip (U) [Mass/Vol]Ordered By: Deb Carmichael on 12-10-2022 Ketones (U) [Mass/Vol] Negative Negative [facility] Laboratory - UrinalysisOrder ed By: Deb Carmichael on 12-10-2022 Hyaline casts LM Ql (Urine sed) 0-8 [LPF] 0-8 [facility] Leukocytes [#/volume] correc lisa for nucleated erythrocytes in Blood by Automated counOrdered By: Mary Beth Sloan on 12-10-2022 WBC corrected for nucl RBC Auto (Bld) [#/Vol] 11.1 10*3/uL 3.8-11.6 [facility] Lymphocytes Auto (Bld) [#/Vo l]Ordered By: Mary Beth Sloan on 12-10-2022 Lymphocytes (Bld) [#/Vol] 2.2 10*3/uL 1.00-4.8 [facility] Lymphocytes/100 WBC Auto (Bl d)Ordered By: Mary Beth Sloan on 12-10-2022 Lymphocytes/100 WBC (Bld) 20.0 % . [facility] MCH Auto (RBC) [Entitic mass ]Ordered By: Mary Beth Sloan on 12-10-2022 MCH (RBC) [Entitic mass] 33.4 pg 24.7-34.3 [facility] MCHC Auto (RBC) [Mass/Vol]Or dered By: Mary Beth Sloan on 12-10-2022 MCHC (RBC) [Mass/Vol] 34.0 g/dL 32.0-35.0 [facility] MCV Auto (RBC) [Entitic vol] Ordered By: Mary Beth Sloan on 12-10-2022 MCV (RBC) [Entitic vol] 98.2 fL 80-100 [facility] Monocyte distribution width [Entitic volume] in Blood by AutomatedOrdered By: Mary Beth Sloan on 12-10-2022 Monocyte distribution width Auto (Bld) [Entitic vol] 18.95 % 0.00-20.00 [facility] Monocytes Auto (Bld) [#/Vol] Ordered By: Mary Beth Sloan on 12-10-2022 Monocytes (Bld) [#/Vol] 0.7 10*3/uL 0.0-0.8 [facility] Monocytes/100 WBC Auto (Bld) Ordered By: Mary Beth Bullimore on 12-10-2022 Monocytes/100 WBC (Bld) 6.2 % . [facility] Neutrophils Auto (Bld) [#/Vo l]Ordered By: Mary Beth Bullimore on 12-10-2022 Neutrophils (Bld) [#/Vol] 7.9 10*3/uL 1.8-7.7 [facility] Neutrophils/100 WBC Auto (Bl d)Ordered By: Mary Beth Bullimore on 12-10-2022 Neutrophils/100 WBC (Bld) 71.6 % . [facility] Nitrite Test strip Ql (U)Ord ered By: Deb Carmichael on 12-10-2022 Nitrite Ql (U) Negative Negative [facility] No Panel InformationOrdered By: Mary Beth Croweimceline on 12-10-2022 Estimated GFR (CKD-EPI) > 60.0 mL/Min [facility] Creatinine Clearance (Chem 109.22 [facility] Nucleated erythrocytes [Pres ence] in Blood by Automated countOrdered By: Mary Beth Croweimceline on 12-10-2022 Nucleated RBC Auto Ql (Bld) 0.1 /100{WBC} 0-0.5 [facility] Platelet mean volume Auto (B ld) [Entitic vol]Ordered By: Mary Beth Bullimore on 12-10-2022 Platelet mean volume (Bld) [Entitic vol] 8.5 fL 6.3-10.7 [facility] Platelets Auto (Bld) [#/Vol] Ordered By: Mary Beth Bullimore on 12-10-2022 Platelets (Bld) [#/Vol] 228 10*3/uL 150-450 [facility] Potassium [Moles/volume] in Serum or PlasmaOrdered By: Mary Beth Bullimore on 12-10-2022 Potassium [Moles/Vol] 3.9 mmol/L 3.5-5.1 [facility] Protein Auto test strip (U) [Mass/Vol]Ordered By: Deb Carmichael on 12-10-2022 Protein (U) [Mass/Vol] Negative Negative [facility] Protein [Mass/volume] in Ser um or PlasmaOrdered By: Mary Beth Sloan on 12-10-2022 Protein [Mass/Vol] 6.8 g/dL 6.4-8.9 [facility] RBC Auto (Bld) [#/Vol]Ordere d By: Mary Beth Sloan on 12-10-2022 RBC (Bld) [#/Vol] 4.00 10*6/uL 3.60-5.00 [facility] Serum or plasma albumin/glob ulin mass ratioOrdered By: Mary Beth Sloan on 12-10-2022 Albumin/Globulin [Mass ratio] 1.2 {ratio} [facility] Serum or plasma anion gap de terminationOrdered By: Mary Beth Sloan on 12-10-2022 Anion gap [Moles/Vol] 6.7 mmol/L 6.0-15.0 [facility] Sodium [Moles/volume] in Ser um or PlasmaOrdered By: Mary Beth Sloan on 12-10-2022 Sodium [Moles/Vol] 137 mmol/L 136-145 [facility] Specific gravity Auto test s trip (U) [Rel density]Ordered By: Deb Carmichael on 12-10-2022 Specific gravity (U) [Rel density] 1.020 1.001-1.030 [facility] Squamous epithelial cells de tection in urine sediment by light microscopyOrdered By: Deb Carmichael on 12-10-2022 Epithelial cells.squamous LM Ql (Urine sed) 5-9 [HPF] 0-2 [facility] Urea nitrogen [Mass/volume] in Serum or PlasmaOrdered By: Mary Beth Sloan on 12-10-2022 Urea nitrogen [Mass/Vol] 12 mg/dL 7-25 [facility] Urine bacteria detection by automated methodOrdered By: Deb Carmichael on 12-10-2022 Bacteria Auto Ql (U) 3+ None Seen [facility] Urine clarity by refractomet ry automatedOrdered By: Deb Carmichael on 12-10-2022 Clarity Refractometry automated (U) Turbid Clear [facility] Urine glucose measurement by automated test strip (mass/volume)Ordered By: Deb Carmichael on 12-10-2022 Glucose Auto test strip (U) [Mass/Vol] Normal mg/dL Normal [facility] Urine hemoglobin detection b y automated test stripOrdered By: Deb Carmichael on 12-10-2022 Hemoglobin Auto test strip Ql (U) Negative Negative [facility] Urine leukocyte esterase det ection by automated test stripOrdered By: Deb Carmichael on 12-10-2022 Leukocyte esterase Auto test strip Ql (U) 1+ Negative [facility] Urine sediment crystal ident ification by light microscopyOrdered By: Deb Carmichael on 12-10-2022 Crystals LM Nom (Urine sed) None seen [HPF] [facility] Urobilinogen Auto test strip (U) [Mass/Vol]Ordered By: Deb Carmichael on 12-10-2022 Urobilinogen (U) [Mass/Vol] Normal mg/dL Normal [facility] WBC Auto (Bld) [#/Vol]Ordere d By: Mary Beth Sloan on 12-10-2022 WBC (Bld) [#/Vol] 11.1 10*3/uL 3.8-11.6 [facility] pH Auto test strip (U)Ordere d By: Deb Carmichael on 12-10-2022 pH (U) 8.0 [pH] 5.0-9.0 [facility] Consent for Treatmenton 11-23 Consent for Treatment [id number] D:127 Normal [facility] Discharge Instructionson Discharge Instructions [id number] CD:127 Normal [facility] ED Clinical Summaryon 2022 ED Clinical Summary Normal [facility] ED Patient Education Noteon 12-07-2022 ED Patient Education Note Normal [facility] ED Patient Summaryon 023 ED Patient Summary Normal [facility] Provider Note - ED v3on 10-23 Provider [...] SIGNS: T PRBP SpO2O2(LPM) %FiO2 Method 04-Nov-2022 22:29:[id number] 96 room air, no respiratory support MDM [...] she always goes to the same place, [facility] ER and that she is not frequently [...] critically ill patient: no Electronic Signatures: Rashad Mckeon) (Signed 04-Nov-2022 23:55) Authored: ED Notes, HPI, PMH, PE, Results/Vital Signs, MDM/ED Course, Clinical Impression, Attestation, Chart Review, Scores Last Updated: 04-Nov-2022 23:55 by Rashad Mckeon) References: 1. Data Referenced From Triage - ED 04-Nov-2022 22:29 [facility] Triage - EDon 11-05-2022 Triage - [...] BMI (kg/m2): 42.617 Calculated BSA (m2) 2.20 Gadiel Coma Scale: Best Eye Response: (E4) spontaneous Best Motor Response: (M6) obeys commands Best Verbal Response: (V5) oriented [place] Score: 15 Allergies: yes [employer] History: hysterectomy Patient has homicidal thoughts: no [...] patient cognitively impaired not cognitively impaired Interventions: Carlene Fall Interventions: LOW INTERVENTIONS: *patient oriented to [...] Updated: 04-Nov-2022 22:50 by Jayna August (RN) Normal [facility] Bilirubin Test strip Ql (U)O rdered By: Mary Beth Sloan on 10-16-2022 Bilirubin Ql (U) Negative Negative [facility] Color Auto (U)Ordered By: Pascale Sloan on 10-16-2022 Color (U) Yellow Yellow [facility] Ketones Auto test strip (U) [Mass/Vol]Ordered By: Mary Beth Sloan on 10-16-2022 Ketones (U) [Mass/Vol] Negative Negative [facility] Nitrite Test strip Ql (U)Ord ered By: Mary Beth Sloan on 10-16-2022 Nitrite Ql (U) Negative Negative [facility] Protein Auto test strip (U) [Mass/Vol]Ordered By: Mary Beth Sloan on 10-16-2022 Protein (U) [Mass/Vol] Negative Negative [facility] Specific gravity Auto test s trip (U) [Rel density]Ordered By: Mary Beth Sloan on 10-16-2022 Specific gravity (U) [Rel density] 1.017 1.001-1.030 [facility] Urine clarity by refractomet ry automatedOrdered By: Mary Beth Sloan on 10-16-2022 Clarity Refractometry automated (U) Clear Clear [facility] Urine glucose measurement by automated test strip (mass/volume)Ordered By: Mary Beth Sloan on 10-16-2022 Glucose Auto test strip (U) [Mass/Vol] Normal mg/dL Normal [facility] Urine hemoglobin detection b y automated test stripOrdered By: Mary Beth Sloan on 10-16-2022 Hemoglobin Auto test strip Ql (U) Negative Negative [facility] Urine leukocyte esterase det ection by automated test stripOrdered By: Mary Beth Sloan on 10-16-2022 Leukocyte esterase Auto test strip Ql (U) Negative Negative [facility] Urobilinogen Auto test strip (U) [Mass/Vol]Ordered By: Mary Beth Sloan on 10-16-2022 Urobilinogen (U) [Mass/Vol] Normal mg/dL Normal [facility] pH Auto test strip (U)Ordere d By: Mary Beth Sloan on 10-16-2022 pH (U) 7.0 [pH] 5.0-9.0 [facility] Automated erythrocytes count in urine sediment (number/area)Ordered By: Narciso Bennett on 08-02-2022 RBC Auto (Urine sed) [#/Area] 1-2 [HPF] 0-4 [facility] Automated leukocytes count i n urine sediment (number/area)Ordered By: Narciso Bennett on 08-02-2022 WBC Auto (Urine sed) [#/Area] 3-4 [HPF] 0-4 [facility] Bilirubin Test strip Ql (U)O rdered By: Narciso Bennett on 08-02-2022 Bilirubin Ql (U) Negative Negative [facility] Color Auto (U)Ordered By: Romeo Bennett on 08-02-2022 Color (U) Yellow Yellow [facility] Ketones Auto test strip (U) [Mass/Vol]Ordered By: Narciso Bennett on 08-02-2022 Ketones (U) [Mass/Vol] Trace Negative [facility] Laboratory - UrinalysisOrder ed By: Narciso Bennett on 08-02-2022 Hyaline casts LM Ql (Urine sed) 0-8 [LPF] 0-8 [facility] Nitrite Test strip Ql (U)Ord ered By: Narciso Bennett on 08-02-2022 Nitrite Ql (U) Negative Negative [facility] Protein Auto test strip (U) [Mass/Vol]Ordered By: Narciso Bennett on 08-02-2022 Protein (U) [Mass/Vol] Trace mg/dL Negative [facility] Specific gravity Auto test s trip (U) [Rel density]Ordered By: Narciso Bennett on 08-02-2022 Specific gravity (U) [Rel density] 1.037 1.001-1.030 [facility] Squamous epithelial cells de tection in urine sediment by light microscopyOrdered By: Narciso Bennett on 08-02-2022 Epithelial cells.squamous LM Ql (Urine sed) 1-2 [HPF] 0-2 [facility] Urine bacteria detection by automated methodOrdered By: Narciso Bennett on 08-02-2022 Bacteria Auto Ql (U) 1+ None Seen [facility] Urine clarity by refractomet ry automatedOrdered By: Narciso Bennett on 08-02-2022 Clarity Refractometry automated (U) Cloudy Clear [facility] Urine glucose measurement by automated test strip (mass/volume)Ordered By: Narciso Bennett on 08-02-2022 Glucose Auto test strip (U) [Mass/Vol] Normal mg/dL Normal [facility] Urine hemoglobin detection b y automated test stripOrdered By: Narciso Bennett on 08-02-2022 Hemoglobin Auto test strip Ql (U) Negative Negative [facility] Urine leukocyte esterase det ection by automated test stripOrdered By: Narciso Bennett on 08-02-2022 Leukocyte esterase Auto test strip Ql (U) Negative Negative [facility] Urobilinogen Auto test strip (U) [Mass/Vol]Ordered By: Narciso Bennett on 08-02-2022 Urobilinogen (U) [Mass/Vol] Normal mg/dL Normal [facility] pH Auto test strip (U)Ordere d By: Narciso Bennett on 08-02-2022 pH (U) 6.5 [pH] 5.0-9.0 [facility] Automated erythrocytes count in urine sediment (number/area)Ordered By: Mary Beth Sloan on 06-16-2022 RBC Auto (Urine sed) [#/Area] 1-2 [HPF] 0-4 [facility] Automated leukocytes count i n urine sediment (number/area)Ordered By: Mary Beth Sloan on 06-16-2022 WBC Auto (Urine sed) [#/Area] 0-1 [HPF] 0-4 [facility] Bilirubin Test strip Ql (U)O rdered By: Mary Beth Sloan on 06-16-2022 Bilirubin Ql (U) Negative Negative [facility] Color Auto (U)Ordered By: Pascale Sloan on 06-16-2022 Color (U) Yellow Yellow [facility] Ketones Auto test strip (U) [Mass/Vol]Ordered By: Mary Beth Sloan on 06-16-2022 Ketones (U) [Mass/Vol] Negative Negative [facility] Laboratory - UrinalysisOrder ed By: Mary Beth Sloan on 06-16-2022 Hyaline casts LM Ql (Urine sed) None seen [LPF] 0-8 [facility] Nitrite Test strip Ql (U)Ord ered By: Mary Beth Sloan on 06-16-2022 Nitrite Ql (U) Negative Negative [facility] Protein Auto test strip (U) [Mass/Vol]Ordered By: Mary Beth Sloan on 06-16-2022 Protein (U) [Mass/Vol] Negative Negative [facility] Specific gravity Auto test s trip (U) [Rel density]Ordered By: Mary Beth Sloan on 06-16-2022 Specific gravity (U) [Rel density] 1.017 1.001-1.030 [facility] Squamous epithelial cells de tection in urine sediment by light microscopyOrdered By: Mary Beth Sloan on 06-16-2022 Epithelial cells.squamous LM Ql (Urine sed) 1-2 [HPF] 0-2 [facility] Urine bacteria detection by automated methodOrdered By: Mary Beth Sloan on 06-16-2022 Bacteria Auto Ql (U) None seen None Seen [facility] Urine clarity by refractomet ry automatedOrdered By: Mary Beth Sloan on 06-16-2022 Clarity Refractometry automated (U) Turbid Clear [facility] Urine glucose measurement by automated test strip (mass/volume)Ordered By: Mary Beth Sloan on 06-16-2022 Glucose Auto test strip (U) [Mass/Vol] Normal mg/dL Normal [facility] Urine hemoglobin detection b y automated test stripOrdered By: Mary Beth Sloan on 06-16-2022 Hemoglobin Auto test strip Ql (U) Negative Negative [facility] Urine leukocyte esterase det ection by automated test stripOrdered By: Mary Beth Sloan on 06-16-2022 Leukocyte esterase Auto test strip Ql (U) Negative Negative [facility] Urobilinogen Auto test strip (U) [Mass/Vol]Ordered By: Mary Beth Sloan on 06-16-2022 Urobilinogen (U) [Mass/Vol] Normal mg/dL Normal [facility] pH Auto test strip (U)Ordere d By: Mary Beth Sloan on 06-16-2022 pH (U) [pH] 5.0-9.0 [facility] Activated partial thrombopla stin time (aPTT) in platelet poor plasma by coagulation aOrdered By: José Miguel Mcnamara on 03-19-2022 aPTT Coag (PPP) [Time] 32.5 s 25.1-36.5 [facility] Albumin [Mass/volume] in Ser um or PlasmaOrdered By: José Miguel Mcnamara on 03-19-2022 Albumin [Mass/Vol] 3.6 g/dL 3.2-5.5 [facility] Basophils Auto (Bld) [#/Vol] Ordered By: José Miguel Mcnamara on 03-19-2022 Basophils (Bld) [#/Vol] 0.0 10*3/uL 0.0-0.2 [facility] Basophils/100 WBC Auto (Bld) Ordered By: José Miguel Mcnamara on 03-19-2022 Basophils/100 WBC (Bld) 0.1 % . [facility] COVID CepheidOrdered By: Anel Mcnamara on 03-19-2022 SARS-CoV-2 (COVID-19) Ab IA Ql Negative Negative [facility] Comment on above: This is a duplicate Cepbulletn. Xpert Xpress CoV-2/Flu/RSV Plus RNA by RT-PCR result to be used for statistical tracking purpose only. SARS-CoV-2 (COVID-19) RNA LINDSEY+probe Ql (Unsp spec) [facility] SARS-CoV-2 (COVID-19) RNA LINDSEY+probe Ql (Unsp spec) [facility] Creatinine and Glomerular fi ltration rate.predicted panel (S/P/Bld)Ordered By: José Miguel Mcnamara on 03-19-2022 Creatinine [Mass/Vol] 0.79 mg/dL 0.44-1.03 [facility] Direct bilirubin measurement Ordered By: José Miguel Mcnamara on 03-19-2022 Bilirubin.direct [Mass/Vol] 0.1 mg/dL 0.0-0.4 [facility] Eosinophils Auto (Bld) [#/Vo l]Ordered By: José Miguel Mcnamara on 03-19-2022 Eosinophils (Bld) [#/Vol] 0.0 10*3/uL 0.0-0.45 [facility] Eosinophils/100 WBC Auto (Bl d)Ordered By: José Miguel Mcnamara on 03-19-2022 Eosinophils/100 WBC (Bld) 0.8 % . [facility] Erythrocyte distribution wid th Auto (RBC) [Ratio]Ordered By: José Miguel Mcnamara on 03-19-2022 Erythrocyte distribution width (RBC) [Ratio] 13.2 % 11.9-15.3 [facility] Estimated glomerular filtrat ion rate (GFR) non- AmericanOrdered By: José Miguel Mcnamara on 03-19-2022 GFR/1.73 sq M.predicted among non-blacks MDRD (S/P/Bld) [Vol rate/Area] > 60 mL/Min [facility] Globulin Calc (S) [Mass/Vol] Ordered By: José Miguel Mcnamara on 03-19-2022 Globulin (S) [Mass/Vol] 3.3 g/dL [facility] HCG ( test) IA.rapi d Ql (U)Ordered By: Jorge Dan on 03-19-2022 HCG ( test) Ql (U) Negative [facility] Hematocrit Auto (Bld) [Volum e fraction]Ordered By: José Miguel Mcnamara on 03-19-2022 Hematocrit (Bld) [Volume fraction] 40.0 % 34.0-46.4 [facility] Hemoglobin [Mass/volume] in BloodOrdered By: José Miguel Mcnamara on 03-19-2022 Hemoglobin (Bld) [Mass/Vol] 13.5 g/dL 11.8-15.4 [facility] Laboratory - CoagulationOrde red By: José Miguel Mcnamara on 03-19-2022 PT Coag (PPP) [Time] 12.4 s 9.0-12.9 [facility] Leukocytes [#/volume] correc lisa for nucleated erythrocytes in Blood by Automated counOrdered By: José Miguel Mcnamara on 03-19-2022 WBC corrected for nucl RBC Auto (Bld) [#/Vol] 3.2 10*3/uL 3.8-11.6 [facility] Lymphocytes Auto (Bld) [#/Vo l]Ordered By: José Miguel Mcnamara on 03-19-2022 Lymphocytes (Bld) [#/Vol] 1.6 10*3/uL 1.00-4.8 [facility] Lymphocytes/100 WBC Auto (Bl d)Ordered By: José Miguel Mcnamara on 03-19-2022 Lymphocytes/100 WBC (Bld) 49.4 % . [facility] MCH Auto (RBC) [Entitic mass ]Ordered By: José Miguel Mcnamara on 03-19-2022 MCH (RBC) [Entitic mass] 31.6 pg 24.7-34.3 [facility] MCHC Auto (RBC) [Mass/Vol]Or dered By: José Miguel Mcnamara on 03-19-2022 MCHC (RBC) [Mass/Vol] 33.8 g/dL 32.0-35.0 [facility] MCV Auto (RBC) [Entitic vol] Ordered By: José Miguel Mcnamara on 03-19-2022 MCV (RBC) [Entitic vol] 93.4 fL 80-100 [facility] Monocyte distribution width [Entitic volume] in Blood by AutomatedOrdered By: José Miguel Mcnamara on 03-19-2022 Monocyte distribution width Auto (Bld) [Entitic vol] 19.83 % 0.00-20.00 [facility] Monocytes Auto (Bld) [#/Vol] Ordered By: José Miguel Mcnamara on 03-19-2022 Monocytes (Bld) [#/Vol] 0.4 10*3/uL 0.0-0.8 [facility] Monocytes/100 WBC Auto (Bld) Ordered By: José Miguel Mcnamara on 03-19-2022 Monocytes/100 WBC (Bld) 11.7 % . [facility] Neutrophils Auto (Bld) [#/Vo l]Ordered By: José Miguel Mcnamara on 03-19-2022 Neutrophils (Bld) [#/Vol] 1.2 10*3/uL 1.8-7.7 [facility] Neutrophils/100 WBC Auto (Bl d)Ordered By: José Miguel Mcnamara on 03-19-2022 Neutrophils/100 WBC (Bld) 38.0 % . [facility] No Panel InformationOrdered By: José Miguel Mcnamara on 03-19-2022 Estimated GFR () > 60 mL/Min [facility] Comment on above: GFR estimated refere nce range: According to KDOQI guidelines, <60 ml/min/1.73m2 is sufficient to diagnose a patient with chronic kidney disease. Pharmacy Creatinine Clearance (Chem 107.22 [facility] Nucleated erythrocytes [Pres ence] in Blood by Automated countOrdered By: José Miguel Mcnamara on 03-19-2022 Nucleated RBC Auto Ql (Bld) 0.3 /100{WBC} 0-0.5 [facility] Platelet mean volume Auto (B ld) [Entitic vol]Ordered By: José Miguel Mcnamara on 03-19-2022 Platelet mean volume (Bld) [Entitic vol] 9.5 fL 6.3-10.7 [facility] Platelet poor plasma interna tional normalized ratio (INR) by coagulation assay (relatOrdered By: José Miguel Mcnamara on 03-19-2022 INR Coag (PPP) [Relative time] 1.1 {INR} [facility] Comment on above: INR Therapeutic Rang [...] 03-19-2022 Platelets (Bld) [#/Vol] 206 10*3/uL 150-450 [facility] Protein [Mass/volume] in Ser um or PlasmaOrdered By: José Miguel Mcnamara on 03-19-2022 Protein [Mass/Vol] 6.9 g/dL 6.1-7.9 [facility] RBC Auto (Bld) [#/Vol]Ordere d By: José Miguel Mcnamara on 03-19-2022 RBC (Bld) [#/Vol] 4.28 10*6/uL 3.60-5.00 [facility] Serum or plasma alanine cardoso otransferase measurement without P-5'-P (enzymatic activiOrdered By: José Miguel Mcnamara on 03-19-2022 ALT No additional P-5'-P [Catalytic activity/Vol] 86 U/L 10-60 [facility] Serum or plasma albumin/glob ulin mass ratioOrdered By: José Miguel Mcnamara on 03-19-2022 Albumin/Globulin [Mass ratio] 1.1 {ratio} [facility] Serum or plasma alkaline sintia sphatase measurement (enzymatic activity/volume)Ordered By: José Miguel Mcnamara on 03-19-2022 ALP [Catalytic activity/Vol] 65 U/L 32-92 [facility] Serum or plasma anion gap de terminationOrdered By: José Miguel Mcnamara on 03-19-2022 Anion gap [Moles/Vol] 9.9 mmol/L 6.0-15.0 [facility] Serum or plasma aspartate am inotransferase measurement (enzymatic activity/volume)Ordered By: José Miguel Mcnamara on 03-19-2022 AST [Catalytic activity/Vol] 74 U/L 10-42 [facility] Serum or plasma calcium skyla urement (mass/volume)Ordered By: José Miguel Mcnamara on 03-19-2022 Calcium [Mass/Vol] 8.3 mg/dL 8.2-10.2 [facility] Serum or plasma chloride florin surement (moles/volume)Ordered By: José Miguel Mcnamara on 03-19-2022 Chloride [Moles/Vol] 108 mmol/L 95-114 [facility] Serum or plasma glucose skyla urement (mass/volume)Ordered By: José Miguel Mcnamara on 03-19-2022 Glucose [Mass/Vol] 100 mg/dL 70-100 [facility] Comment on above: ADA recommended refe rence rangeRandom Glucose Reference Range is dependent on time and content of last meal. Glucose of more than 200 mg/dL in a nonstressed, ambulatory subject supports the diagnosis of Diabetes Mellitus. Serum or plasma non-glucuron idated bilirubin measurement (mass/volume)Ordered By: José Miguel Mcnamara on 03-19-2022 Bilirubin.indirect [Mass/Vol] 0.4 mg/dL [facility] Serum or plasma potassium me asurement (moles/volume)Ordered By: José Miguel Mcnamara on 03-19-2022 Potassium [Moles/Vol] 3.2 mmol/L 3.5-5.1 [facility] Serum or plasma sodium measu rement (moles/volume)Ordered By: José Miguel Mcnamara on 03-19-2022 Sodium [Moles/Vol] 136 mmol/L 136-146 [facility] Serum or plasma total biliru bin measurement (mass/volume)Ordered By: José Miguel Mcnamara on 03-19-2022 Bilirubin [Mass/Vol] 0.5 mg/dL 0.3-1.2 [facility] Serum or plasma total carbon dioxide measurement (moles/volume)Ordered By: José Miguel Mcnamara on 03-19-2022 CO2 [Moles/Vol] 21.3 mmol/L 22.0-30.0 [facility] Serum or plasma urea nitroge n measurement (mass/volume)Ordered By: José Miguel Mcnamara on 03-19-2022 Urea nitrogen [Mass/Vol] 5 mg/dL 9- [facility] WBC Auto (Bld) [#/Vol]Ordere d By: José Miguel Mcnamara on 03-19-2022 WBC (Bld) [#/Vol] 3.2 10*3/uL 3.8-11.6 [facility] Basophils Auto (Bld) [#/Vol] Ordered By: Berto Villasenor on 03-17-2022 Basophils (Bld) [#/Vol] 0.0 10*3/uL 0.0-0.2 [facility] Basophils/100 WBC Auto (Bld) Ordered By: Berto Villasenor on 03-17-2022 Basophils/100 WBC (Bld) 0.6 % . [facility] Body fluid albumin measureme nt (mass/volume)Ordered By: Berto Villasenor on 03-17-2022 Albumin (Body fld) [Mass/Vol] 3.7 g/dL 3.2-5.5 [facility] Creatinine and Glomerular fi ltration rate.predicted panel (S/P/Bld)Ordered By: Berto Villasenor on 03-17-2022 Creatinine [Mass/Vol] 0.80 mg/dL 0.44-1.03 [facility] Direct bilirubin measurement Ordered By: Berto Villasenor on 03-17-2022 Bilirubin.direct [Mass/Vol] 0.2 mg/dL 0.0-0.4 [facility] Eosinophils Auto (Bld) [#/Vo l]Ordered By: Berto Villasenor on 03-17-2022 Eosinophils (Bld) [#/Vol] 0.0 10*3/uL 0.0-0.45 [facility] Eosinophils/100 WBC Auto (Bl d)Ordered By: Berto Villasenor on 03-17-2022 Eosinophils/100 WBC (Bld) 0.5 % . [facility] Erythrocyte distribution wid th Auto (RBC) [Ratio]Ordered By: Berto Villasenor on 03-17-2022 Erythrocyte distribution width (RBC) [Ratio] 13.3 % 11.9-15.3 [facility] Estimated glomerular filtrat ion rate (GFR) non- AmericanOrdered By: Berto Villasenor on 03-17-2022 GFR/1.73 sq M.predicted among non-blacks MDRD (S/P/Bld) [Vol rate/Area] > 60 mL/Min [facility] Globulin Calc (S) [Mass/Vol] Ordered By: Berto Villasenor on 03-17-2022 Globulin (S) [Mass/Vol] 3.1 g/dL [facility] Hematocrit Auto (Bld) [Volum e fraction]Ordered By: Berto Villasenor on 03-17-2022 Hematocrit (Bld) [Volume fraction] 40.8 % 34.0-46.4 [facility] Hemoglobin [Mass/volume] in BloodOrdered By: Berto Villasenor on 03-17-2022 Hemoglobin (Bld) [Mass/Vol] 13.8 g/dL 11.8-15.4 [facility] Leukocytes [#/volume] correc lisa for nucleated erythrocytes in Blood by Automated counOrdered By: Berto Villasenor on 03-17-2022 WBC corrected for nucl RBC Auto (Bld) [#/Vol] 5.2 10*3/uL 3.8-11.6 [facility] Lymphocytes Auto (Bld) [#/Vo l]Ordered By: Berto Villasenor on 03-17-2022 Lymphocytes (Bld) [#/Vol] 1.8 10*3/uL 1.00-4.8 [facility] Lymphocytes/100 WBC Auto (Bl d)Ordered By: Berto Villasenor on 03-17-2022 Lymphocytes/100 WBC (Bld) 34.2 % . [facility] MCH Auto (RBC) [Entitic mass ]Ordered By: Berto Villasenor on 03-17-2022 MCH (RBC) [Entitic mass] 31.8 pg 24.7-34.3 [facility] MCHC Auto (RBC) [Mass/Vol]Or dered By: Berto Villasenor on 03-17-2022 MCHC (RBC) [Mass/Vol] 33.7 g/dL 32.0-35.0 [facility] MCV Auto (RBC) [Entitic vol] Ordered By: Berto Villasenor on 03-17-2022 MCV (RBC) [Entitic vol] 94.2 fL 80-100 [facility] Monocyte distribution width [Entitic volume] in Blood by AutomatedOrdered By: Berto Villasenor on 03-17-2022 Monocyte distribution width Auto (Bld) [Entitic vol] 20.70 % 0.00-20.00 [facility] Comment on above: For adults in ED, MD W > 20.0 may be associated with a higher risk of sepsis during the first 12 hrs of hospital admission Monocytes Auto (Bld) [#/Vol] Ordered By: Berto Villasenor on 03-17-2022 Monocytes (Bld) [#/Vol] 0.5 10*3/uL 0.0-0.8 [facility] Monocytes/100 WBC Auto (Bld) Ordered By: Berto Villasenor on 03-17-2022 Monocytes/100 WBC (Bld) 9.1 % . [facility] Neutrophils Auto (Bld) [#/Vo l]Ordered By: Berto Villasenor on 03-17-2022 Neutrophils (Bld) [#/Vol] 2.9 10*3/uL 1.8-7.7 [facility] Neutrophils/100 WBC Auto (Bl d)Ordered By: Berto Villasenor on 03-17-2022 Neutrophils/100 WBC (Bld) 55.6 % . [facility] No Panel InformationOrdered By: Berto Villasenor on 03-17-2022 Estimated GFR () > 60 mL/Min [facility] Comment on above: GFR estimated refere nce range: According to KDOQI guidelines, <60 ml/min/1.73m2 is sufficient to diagnose a patient with chronic kidney disease. Pharmacy Creatinine Clearance (Chem 106.22 [facility] Nucleated erythrocytes [Pres ence] in Blood by Automated countOrdered By: Berto Villasenor on 03-17-2022 Nucleated RBC Auto Ql (Bld) 0.6 /100{WBC} 0-0.5 [facility] Platelet mean volume Auto (B ld) [Entitic vol]Ordered By: Berto Villasenor on 03-17-2022 Platelet mean volume (Bld) [Entitic vol] 9.0 fL 6.3-10.7 [facility] Platelets Auto (Bld) [#/Vol] Ordered By: Berto Villasenor on 03-17-2022 Platelets (Bld) [#/Vol] 225 10*3/uL 150-450 [facility] Protein [Mass/volume] in Ser um or PlasmaOrdered By: Berto Villasenor on 03-17-2022 Protein [Mass/Vol] 6.8 g/dL 6.1-7.9 [facility] RBC Auto (Bld) [#/Vol]Ordere d By: Berto Villasenor on 03-17-2022 RBC (Bld) [#/Vol] 4.33 10*6/uL 3.60-5.00 [facility] Serum or plasma alanine cardoso otransferase measurement without P-5'-P (enzymatic activiOrdered By: Berto Villasenor on 03-17-2022 ALT No additional P-5'-P [Catalytic activity/Vol] 87 U/L 10-60 [facility] Serum or plasma albumin/glob ulin mass ratioOrdered By: Berto Villasenor on 03-17-2022 Albumin/Globulin [Mass ratio] 1.2 {ratio} [facility] Serum or plasma alkaline sintia sphatase measurement (enzymatic activity/volume)Ordered By: Berto Villasenor on 03-17-2022 ALP [Catalytic activity/Vol] 71 U/L 32-92 [facility] Serum or plasma anion gap de terminationOrdered By: Berto Villasenor on 03-17-2022 Anion gap [Moles/Vol] 12.6 mmol/L 6.0-15.0 [facility] Serum or plasma aspartate am inotransferase measurement (enzymatic activity/volume)Ordered By: Berto Villasenor on 03-17-2022 AST [Catalytic activity/Vol] 71 U/L 10-42 [facility] Serum or plasma calcium skyla urement (mass/volume)Ordered By: Berto Villasenor on 03-17-2022 Calcium [Mass/Vol] 8.5 mg/dL 8.2-10.2 [facility] Serum or plasma chloride florin surement (moles/volume)Ordered By: Berto Villasenor on 03-17-2022 Chloride [Moles/Vol] 110 mmol/L 95-114 [facility] Serum or plasma glucose skyla urement (mass/volume)Ordered By: Berto Villasenor on 03-17-2022 Glucose [Mass/Vol] 98 mg/dL 70-100 [facility] Comment on above: ADA recommended refe rence rangeRandom Glucose Reference Range is dependent on time and content of last meal. Glucose of more than 200 mg/dL in a nonstressed, ambulatory subject supports the diagnosis of Diabetes Mellitus. Serum or plasma non-glucuron idated bilirubin measurement (mass/volume)Ordered By: Berto Villasenor on 03-17-2022 Bilirubin.indirect [Mass/Vol] 0.4 mg/dL [facility] Serum or plasma potassium me asurement (moles/volume)Ordered By: Berto Villasenor on 03-17-2022 Potassium [Moles/Vol] 4.1 mmol/L 3.5-5.1 [facility] Serum or plasma sodium measu rement (moles/volume)Ordered By: Berto Villasenor on 03-17-2022 Sodium [Moles/Vol] 138 mmol/L 136-146 [facility] Serum or plasma total biliru bin measurement (mass/volume)Ordered By: Berto Villasenor on 03-17-2022 Bilirubin [Mass/Vol] 0.6 mg/dL 0.3-1.2 [facility] Serum or plasma total carbon dioxide measurement (moles/volume)Ordered By: Berto Villasenor on 03-17-2022 CO2 [Moles/Vol] 19.5 mmol/L 22.0-30.0 [facility] Serum or plasma urea nitroge n measurement (mass/volume)Ordered By: Berto Villasenor on 03-17-2022 Urea nitrogen [Mass/Vol] 9 mg/dL - [facility] WBC Auto (Bld) [#/Vol]Ordere d By: Berto Villasenor on 03-17-2022 WBC (Bld) [#/Vol] 5.2 10*3/uL 3.8-11.6 [facility] Activated partial thrombopla stin time (aPTT) in platelet poor plasma by coagulation aOrdered By: Cameron Rene on 03-14-2022 aPTT Coag (PPP) [Time] 22.4 s 25.1-36.5 [facility] Albumin [Mass/volume] in Ser um or PlasmaOrdered By: Cameron Rene on 03-14-2022 Albumin [Mass/Vol] 3.7 g/dL 3.2-5.5 [facility] Automated erythrocytes count in urine sediment (number/area)Ordered By: Cameron Rene on 03-14-2022 RBC Auto (Urine sed) [#/Area] 0-1 [HPF] 0-4 [facility] Automated leukocytes count i n urine sediment (number/area)Ordered By: Cameron Rene on 03-14-2022 WBC Auto (Urine sed) [#/Area] 0-1 [HPF] 0-4 [facility] Basophils Auto (Bld) [#/Vol] Ordered By: Cameron Rene on 03-14-2022 Basophils (Bld) [#/Vol] 0.0 10*3/uL 0.0-0.2 [facility] Basophils/100 WBC Auto (Bld) Ordered By: Cameron Rene on 03-14-2022 Basophils/100 WBC (Bld) 0.2 % . [facility] Bilirubin Test strip Ql (U)O rdered By: Cameron Rene on 03-14-2022 Bilirubin Ql (U) Negative Negative [facility] Color Auto (U)Ordered By: Bo Rene on 03-14-2022 Color (U) Dark yellow Yellow [facility] Creatinine and Glomerular fi ltration rate.predicted panel (S/P/Bld)Ordered By: Cameron Rene on 03-14-2022 Creatinine [Mass/Vol] 0.86 mg/dL 0.44-1.03 [facility] Eosinophils Auto (Bld) [#/Vo l]Ordered By: Cameron Rene on 03-14-2022 Eosinophils (Bld) [#/Vol] 0.1 10*3/uL 0.0-0.45 [facility] Eosinophils/100 WBC Auto (Bl d)Ordered By: Cameron Rene on 03-14-2022 Eosinophils/100 WBC (Bld) 1.2 % . [facility] Erythrocyte distribution wid th Auto (RBC) [Ratio]Ordered By: Cameron Rene on 03-14-2022 Erythrocyte distribution width (RBC) [Ratio] 13.3 % 11.9-15.3 [facility] Estimated glomerular filtrat ion rate (GFR) non- AmericanOrdered By: Cameron Rene on 03-14-2022 GFR/1.73 sq M.predicted among non-blacks MDRD (S/P/Bld) [Vol rate/Area] > 60 mL/Min [facility] Fecal occult blood detection by immunochemistryOrdered By: Cameron Rene on 03-14-2022 Hemoglobin.gastrointes tinal Ql (Stl) [facility] Globulin Calc (S) [Mass/Vol] Ordered By: Cameron Rene on 03-14-2022 Globulin (S) [Mass/Vol] 3.8 g/dL [facility] Hematocrit Auto (Bld) [Volum e fraction]Ordered By: Cameron Rene on 03-14-2022 Hematocrit (Bld) [Volume fraction] 43.7 % 34.0-46.4 [facility] Hemoglobin [Mass/volume] in BloodOrdered By: Cameron Rene on 03-14-2022 Hemoglobin (Bld) [Mass/Vol] 14.6 g/dL 11.8-15.4 [facility] Ketones Auto test strip (U) [Mass/Vol]Ordered By: Cameron Rene on 03-14-2022 Ketones (U) [Mass/Vol] Trace Negative [facility] - CoagulationOrde red By: Cameron Rene on 03-14-2022 PT Coag (PPP) [Time] 12.4 s 9.0-12.9 [facility] - UrinalysisOrder ed By: Cameron Rene on 03-14-2022 Hyaline casts LM Ql (Urine sed) 0-8 [LPF] 0-8 [facility] Leukocytes [#/volume] correc lisa for nucleated erythrocytes in Blood by Automated counOrdered By: Cameron Rene on 03-14-2022 WBC corrected for nucl RBC Auto (Bld) [#/Vol] 6.8 10*3/uL 3.8-11.6 [facility] Lymphocytes Auto (Bld) [#/Vo l]Ordered By: Cameron Rene on 03-14-2022 Lymphocytes (Bld) [#/Vol] 2.2 10*3/uL 1.00-4.8 [facility] Lymphocytes/100 WBC Auto (Bl d)Ordered By: Cameron Rene on 03-14-2022 Lymphocytes/100 WBC (Bld) 32.9 % . [facility] MCH Auto (RBC) [Entitic mass ]Ordered By: Cameron Rene on 03-14-2022 MCH (RBC) [Entitic mass] 31.2 pg 24.7-34.3 [facility] MCHC Auto (RBC) [Mass/Vol]Or dered By: Cameron Rene on 03-14-2022 MCHC (RBC) [Mass/Vol] 33.3 g/dL 32.0-35.0 [facility] MCV Auto (RBC) [Entitic vol] Ordered By: Cameron Rene on 03-14-2022 MCV (RBC) [Entitic vol] 93.7 fL 80-100 [facility] Monocyte distribution width [Entitic volume] in Blood by AutomatedOrdered By: Cameron Rene on 03-14-2022 Monocyte distribution width Auto (Bld) [Entitic vol] 18.75 % 0.00-20.00 [facility] Monocytes Auto (Bld) [#/Vol] Ordered By: Cameron Rene on 03-14-2022 Monocytes (Bld) [#/Vol] 0.4 10*3/uL 0.0-0.8 [facility] Monocytes/100 WBC Auto (Bld) Ordered By: Cameron Rene on 03-14-2022 Monocytes/100 WBC (Bld) 6.1 % . [facility] Neutrophils Auto (Bld) [#/Vo l]Ordered By: Cameron Rene on 03-14-2022 Neutrophils (Bld) [#/Vol] 4.0 10*3/uL 1.8-7.7 [facility] Neutrophils/100 WBC Auto (Bl d)Ordered By: Cameron Rene on 03-14-2022 Neutrophils/100 WBC (Bld) 59.6 % . [facility] Nitrite Test strip Ql (U)Ord ered By: Cameron Rene on 03-14-2022 Nitrite Ql (U) Negative Negative [facility] No Panel InformationOrdered By: Cameron Rene on 03-14-2022 Estimated GFR () > 60 mL/Min [facility] Comment on above: GFR estimated refere nce range: According to KDOQI guidelines, <60 ml/min/1.73m2 is sufficient to diagnose a patient with chronic kidney disease. Pharmacy Creatinine Clearance (Chem 98.52 [facility] Nucleated erythrocytes [Pres ence] in Blood by Automated countOrdered By: Cameron Rene on 03-14-2022 Nucleated RBC Auto Ql (Bld) 0.1 /100{WBC} 0-0.5 [facility] Platelet mean volume Auto (B ld) [Entitic vol]Ordered By: Cameron Rene on 03-14-2022 Platelet mean volume (Bld) [Entitic vol] 9.1 fL 6.3-10.7 [facility] Platelet poor plasma interna tional normalized ratio (INR) by coagulation assay (relatOrdered By: Cameron Rene on 03-14-2022 INR Coag (PPP) [Relative time] 1.1 {INR} [facility] Comment on above: INR Therapeutic Rang [...] 03-14-2022 Platelets (Bld) [#/Vol] 279 10*3/uL 150-450 [facility] Protein Auto test strip (U) [Mass/Vol]Ordered By: Cameron Rene on 03-14-2022 Protein (U) [Mass/Vol] Trace mg/dL Negative [facility] Protein [Mass/volume] in Ser um or PlasmaOrdered By: Cameron Rene on 03-14-2022 Protein [Mass/Vol] 7.5 g/dL 6.1-7.9 [facility] RBC Auto (Bld) [#/Vol]Ordere d By: Cameron Rene on 03-14-2022 RBC (Bld) [#/Vol] 4.66 10*6/uL 3.60-5.00 [facility] Serum or plasma alanine cardoso otransferase measurement without P-5'-P (enzymatic activiOrdered By: Cameron Rene on 03-14-2022 ALT No additional P-5'-P [Catalytic activity/Vol] 86 U/L 10-60 [facility] Serum or plasma albumin/glob ulin mass ratioOrdered By: Cameron Rene on 03-14-2022 Albumin/Globulin [Mass ratio] 1.0 {ratio} [facility] Serum or plasma alkaline sintia sphatase measurement (enzymatic activity/volume)Ordered By: Cameron Rene on 03-14-2022 ALP [Catalytic activity/Vol] 69 U/L 32-92 [facility] Serum or plasma anion gap de terminationOrdered By: Cameron Rene on 03-14-2022 Anion gap [Moles/Vol] 11.6 mmol/L 6.0-15.0 [facility] Serum or plasma aspartate am inotransferase measurement (enzymatic activity/volume)Ordered By: Cameron Rene on 03-14-2022 AST [Catalytic activity/Vol] 70 U/L 10-42 [facility] Serum or plasma calcium skyla urement (mass/volume)Ordered By: Cameron Rene on 03-14-2022 Calcium [Mass/Vol] 8.3 mg/dL 8.2-10.2 [facility] Serum or plasma chloride florin surement (moles/volume)Ordered By: Cameron Rene on 03-14-2022 Chloride [Moles/Vol] 108 mmol/L 95-114 [facility] Serum or plasma glucose skyla urement (mass/volume)Ordered By: Cameron Rene on 03-14-2022 Glucose [Mass/Vol] 105 mg/dL 70-100 [facility] Comment on above: ADA recommended refe rence rangeRandom Glucose Reference Range is dependent on time and content of last meal. Glucose of more than 200 mg/dL in a nonstressed, ambulatory subject supports the diagnosis of Diabetes Mellitus. Serum or plasma potassium me asurement (moles/volume)Ordered By: Cameron Rene on 03-14-2022 Potassium [Moles/Vol] 3.9 mmol/L 3.5-5.1 [facility] Serum or plasma sodium measu rement (moles/volume)Ordered By: Cameron Rene on 03-14-2022 Sodium [Moles/Vol] 135 mmol/L 136-146 [facility] Serum or plasma total biliru bin measurement (mass/volume)Ordered By: Cameron Rene on 03-14-2022 Bilirubin [Mass/Vol] 0.7 mg/dL 0.3-1.2 [facility] Serum or plasma total carbon dioxide measurement (moles/volume)Ordered By: Cameron Rene on 03-14-2022 CO2 [Moles/Vol] 19.3 mmol/L 22.0-30.0 [facility] Serum or plasma urea nitroge n measurement (mass/volume)Ordered By: Cameron Rene on 03-14-2022 Urea nitrogen [Mass/Vol] 11 mg/dL 12-15 [facility] Specific gravity Auto test s trip (U) [Rel density]Ordered By: Cameron Rene on 03-14-2022 Specific gravity (U) [Rel density] 1.030 1.001-1.030 [facility] Squamous epithelial cells de tection in urine sediment by light microscopyOrdered By: Cameron Rene on 03-14-2022 Epithelial cells.squamous LM Ql (Urine sed) 3-4 [HPF] 0-2 [facility] Urine bacteria detection by automated methodOrdered By: Cameron Rene on 03-14-2022 Bacteria Auto Ql (U) None seen None Seen [facility] Urine clarity by refractomet ry automatedOrdered By: Cameron Rene on 03-14-2022 Clarity Refractometry automated (U) Clear Clear [facility] Urine glucose measurement by automated test strip (mass/volume)Ordered By: Cameron Rene on 03-14-2022 Glucose Auto test strip (U) [Mass/Vol] Normal mg/dL Normal [facility] Urine hemoglobin detection b y automated test stripOrdered By: Cameron Rene on 03-14-2022 Hemoglobin Auto test strip Ql (U) Negative Negative [facility] Urine lactic acid measuremen tOrdered By: Cameron Rene on 03-14-2022 Lactate (U) [Moles/Vol] 1.0 mmol/L 0.5-2.2 [facility] Urine leukocyte esterase det ection by automated test stripOrdered By: Cameron Rene on 03-14-2022 Leukocyte esterase Auto test strip Ql (U) Negative Negative [facility] Urobilinogen Auto test strip (U) [Mass/Vol]Ordered By: Cameron Rene on 03-14-2022 Urobilinogen (U) [Mass/Vol] Normal mg/dL Normal [facility] WBC Auto (Bld) [#/Vol]Ordere d By: Cameron Rene on 03-14-2022 WBC (Bld) [#/Vol] 6.8 10*3/uL 3.8-11.6 [facility] pH Auto test strip (U)Ordere d By: Cameron Rene on 03-14-2022 pH (U) 6.5 [pH] 5.0-9.0 [facility] Urine culture routineOrdered By: Dalton Ceja on 02-05-2022 Bacteria identified Cx Nom (U) Escherichia coli [facility] Automated erythrocytes count in urine sediment (number/area)Ordered By: Dalton Ceja on 02-03-2022 RBC Auto (Urine sed) [#/Area] 0-1 [HPF] 0-4 [facility] Automated leukocytes count i n urine sediment (number/area)Ordered By: Dalton Ceja on 02-03-2022 WBC Auto (Urine sed) [#/Area] Innumerable [HPF] 0-4 [facility] Automated urine hyaline cast s count (number/volume)Ordered By: Dalton Ceja on 02-03-2022 Hyaline casts Auto (U) [#/Vol] None seen [LPF] 0-1 [facility] Basophils Auto (Bld) [#/Vol] Ordered By: Dalton Ceja on 02-03-2022 Basophils (Bld) [#/Vol] 0.0 10*3/uL 0.0-0.2 [facility] Basophils/100 WBC Auto (Bld) Ordered By: Dalton Ceja on 02-03-2022 Basophils/100 WBC (Bld) 0.5 % . [facility] Bilirubin Test strip Ql (U)O rdered By: Dalton Ceja on 02-03-2022 Bilirubin Ql (U) Negative Negative [facility] Body fluid albumin measureme nt (mass/volume)Ordered By: Dalton Ceja on 02-03-2022 Albumin (Body fld) [Mass/Vol] 3.7 g/dL 3.2-5.5 [facility] Casts typing in urine sedime nt by light microscopyOrdered By: Dalton Ceja on 02-03-2022 Casts LM Nom (Urine sed) None seen [LPF] None Seen [facility] Color Auto (U)Ordered By: Han Ceja on 02-03-2022 Color (U) Yellow Yellow [facility] Creatinine and Glomerular fi ltration rate.predicted panel (S/P/Bld)Ordered By: Dalton Ceja on 02-03-2022 Creatinine [Mass/Vol] 0.78 mg/dL 0.44-1.03 [facility] Direct bilirubin measurement Ordered By: Dalton Ceja on 02-03-2022 Bilirubin.direct [Mass/Vol] 0.1 mg/dL 0.0-0.4 [facility] Eosinophils Auto (Bld) [#/Vo l]Ordered By: Dalton Ceja on 02-03-2022 Eosinophils (Bld) [#/Vol] 0.1 10*3/uL 0.0-0.45 [facility] Eosinophils/100 WBC Auto (Bl d)Ordered By: Dalton Ceja on 02-03-2022 Eosinophils/100 WBC (Bld) 1.7 % . [facility] Erythrocyte distribution wid th Auto (RBC) [Ratio]Ordered By: Dalton Ceja on 02-03-2022 Erythrocyte distribution width (RBC) [Ratio] 13.4 % 11.9-15.3 [facility] Estimated glomerular filtrat ion rate (GFR) non- AmericanOrdered By: Dalton Ceja on 02-03-2022 GFR/1.73 sq M.predicted among non-blacks MDRD (S/P/Bld) [Vol rate/Area] > 60 mL/Min [facility] Globulin Calc (S) [Mass/Vol] Ordered By: Dalton Ceja on 02-03-2022 Globulin (S) [Mass/Vol] 3.4 g/dL [facility] HCG ( test) IA.rapi d Ql (U)Ordered By: Dalton Ceja on 02-03-2022 HCG ( test) Ql (U) Negative [facility] Hematocrit Auto (Bld) [Volum e fraction]Ordered By: Dalton Ceja on 02-03-2022 Hematocrit (Bld) [Volume fraction] 43.8 % 34.0-46.4 [facility] Hemoglobin [Mass/volume] in BloodOrdered By: Dalton Ceja on 02-03-2022 Hemoglobin (Bld) [Mass/Vol] 14.5 g/dL 11.8-15.4 [facility] Ketones Auto test strip (U) [Mass/Vol]Ordered By: Dalton Ceja on 02-03-2022 Ketones (U) [Mass/Vol] Negative Negative [facility] - Chemistry and C hemistry - challengeOrdered By: Dalton Ceja on 02-03-2022 Lipase [Catalytic activity/Vol] 30.0 U/L 22-51 [facility] - CoagulationOrde red By: Dalton Ceja on 02-03-2022 PT Coag (PPP) [Time] 11.9 s 9.0-12.9 [facility] - Hematology and Cell countsOrdered By: Dalton Ceja on 02-03-2022 Nucleated RBC/100 WBC (Bld) [Ratio] 0.1 % 0-0.5 [facility] Leukocytes [#/volume] in Blo od by Automated countOrdered By: Dalton Ceja on 02-03-2022 WBC (Bld) [#/Vol] 8.6 10*3/uL 4.5-11.0 [facility] Lymphocytes Auto (Bld) [#/Vo l]Ordered By: Dalton Ceja on 02-03-2022 Lymphocytes (Bld) [#/Vol] 2.6 10*3/uL 1.00-4.8 [facility] Lymphocytes/100 WBC Auto (Bl d)Ordered By: Dalton Ceja on 02-03-2022 Lymphocytes/100 WBC (Bld) 30.4 % . [facility] MCH Auto (RBC) [Entitic mass ]Ordered By: Dalton Ceja on 02-03-2022 MCH (RBC) [Entitic mass] 31.4 pg 24.7-34.3 [facility] MCHC Auto (RBC) [Mass/Vol]Or dered By: Dalton Ceja on 02-03-2022 MCHC (RBC) [Mass/Vol] 33.1 g/dL 32.0-35.0 [facility] MCV Auto (RBC) [Entitic vol] Ordered By: Dalton Ceja on 02-03-2022 MCV (RBC) [Entitic vol] 94.9 fL 80-100 [facility] Monocytes Auto (Bld) [#/Vol] Ordered By: Dalton Ceja on 02-03-2022 Monocytes (Bld) [#/Vol] 0.6 10*3/uL 0.0-0.8 [facility] Monocytes/100 WBC Auto (Bld) Ordered By: Dalton Ceja on 02-03-2022 Monocytes/100 WBC (Bld) 7.4 % . [facility] [facility] Auto (Bld) [#/Vo l]Ordered By: Dalton Ceja on 02-03-2022 Neutrophils (Bld) [#/Vol] 5.1 10*3/uL 1.8-7.7 [facility] Neutrophils/100 WBC Auto (Bl d)Ordered By: Dalton Ceja on 02-03-2022 Neutrophils/100 WBC (Bld) 60.0 % . [facility] Nitrite Test strip Ql (U)Ord ered By: Dalton Ceja on 02-03-2022 Nitrite Ql (U) Positive Negative [facility] No Panel InformationOrdered By: Dalton Ceja on 02-03-2022 Estimated GFR () > 60 mL/Min [facility] Comment on above: GFR estimated refere nce range: According to KDOQI guidelines, <60 ml/min/1.73m2 is sufficient to diagnose a patient with chronic kidney disease. Pharmacy Creatinine Clearance (Chem 111.62 [facility] Platelet mean volume Auto (B ld) [Entitic vol]Ordered By: Dalton Ceja on 02-03-2022 Platelet mean volume (Bld) [Entitic vol] 9.6 fL 6.3-10.7 [facility] Platelet poor plasma interna tional normalized ratio (INR) by coagulation assay (relatOrdered By: Dalton Ceja on 02-03-2022 INR Coag (PPP) [Relative time] 1.1 {INR} [facility] Comment on above: INR Therapeutic Rang [...] 02-03-2022 Platelets (Bld) [#/Vol] 269 10*3/uL 150-450 [facility] Protein Auto test strip (U) [Mass/Vol]Ordered By: Dalton Ceja on 02-03-2022 Protein (U) [Mass/Vol] 100 mg/dL Negative Fi [facility] Protein [Mass/volume] in Ser um or PlasmaOrdered By: Dalton Ceja on 02-03-2022 Protein [Mass/Vol] 7.1 g/dL 6.1-7.9 [facility] RBC Auto (Bld) [#/Vol]Ordere d By: Dalton Ceja on 02-03-2022 RBC (Bld) [#/Vol] 4.62 10*6/uL 3.60-5.00 [facility] Serum or plasma alanine cardoso otransferase measurement without P-5'-P (enzymatic activiOrdered By: Dalton Ceja on 02-03-2022 ALT No additional P-5'-P [Catalytic activity/Vol] 74 U/L 10-60 [facility] Serum or plasma albumin/glob ulin mass ratioOrdered By: Dalton Ceja on 02-03-2022 Albumin/Globulin [Mass ratio] 1.1 {ratio} [facility] Serum or plasma alkaline sintia sphatase measurement (enzymatic activity/volume)Ordered By: Dalton Ceja on 02-03-2022 ALP [Catalytic activity/Vol] 78 U/L 32-92 [facility] Serum or plasma anion gap de terminationOrdered By: Dalton Ceja on 02-03-2022 Anion gap [Moles/Vol] 14.0 mmol/L 6.0-15.0 [facility] Serum or plasma aspartate am inotransferase measurement (enzymatic activity/volume)Ordered By: Dalton Ceja on 02-03-2022 AST [Catalytic activity/Vol] 54 U/L 10-42 [facility] Serum or plasma calcium skyla urement (mass/volume)Ordered By: Dalton Ceja on 02-03-2022 Calcium [Mass/Vol] 8.9 mg/dL 8.2-10.2 [facility] Serum or plasma chloride florin surement (moles/volume)Ordered By: Dalton Ceja on 02-03-2022 Chloride [Moles/Vol] 109 mmol/L 95-114 [facility] Serum or plasma glucose skyla urement (mass/volume)Ordered By: Dalton Ceja on 02-03-2022 Glucose [Mass/Vol] 107 mg/dL 70-100 [facility] Comment on above: ADA recommended refe rence rangeRandom Glucose Reference Range is dependent on time and content of last meal. Glucose of more than 200 mg/dL in a nonstressed, ambulatory subject supports the diagnosis of Diabetes Mellitus. Serum or plasma non-glucuron idated bilirubin measurement (mass/volume)Ordered By: Dalton Ceja on 02-03-2022 Bilirubin.indirect [Mass/Vol] 0.3 mg/dL [facility] Serum or plasma potassium me asurement (moles/volume)Ordered By: Dalton Ceja on 02-03-2022 Potassium [Moles/Vol] 3.6 mmol/L 3.5-5.1 [facility] Serum or plasma sodium measu rement (moles/volume)Ordered By: Dalton Ceja on 02-03-2022 Sodium [Moles/Vol] 137 mmol/L 136-146 [facility] Serum or plasma total biliru bin measurement (mass/volume)Ordered By: Dalton Ceja 02-03-2022 Bilirubin [Mass/Vol] 0.4 mg/dL 0.3-1.2 [facility] Serum or plasma total carbon dioxide measurement (moles/volume)Ordered By: Dalton Ceja on 02-03-2022 CO2 [Moles/Vol] 17.6 mmol/L 22.0-30.0 [facility] Serum or plasma urea nitroge n measurement (mass/volume)Ordered By: Dalton Ceja on 02-03-2022 Urea nitrogen [Mass/Vol] 15 mg/dL 9- [facility] Specific gravity Auto test s trip (U) [Rel density]Ordered By: Dalton Ceja on 02-03-2022 Specific gravity (U) [Rel density] 1.020 1.001-1.030 [facility] Squamous epithelial cells de tection in urine sediment by light microscopyOrdered By: Dalton Ceja on 02-03-2022 Epithelial cells.squamous LM Ql (Urine sed) 3-4 [HPF] 0-2 [facility] Urine bacteria detection by automated methodOrdered By: Dalton Ceja on 02-03-2022 Bacteria Auto Ql (U) 4+ None Seen [facility] Urine clarity by refractomet ry automatedOrdered By: Dalton Ceja on 02-03-2022 Clarity Refractometry automated (U) Cloudy Clear [facility] Urine culture routineOrdered By: Dalton Ceja on 02-03-2022 Bacteria identified Cx Nom (U) Escherichia coli [facility] Urine glucose measurement by automated test strip (mass/volume)Ordered By: Dalton Ceja on 02-03-2022 Glucose Auto test strip (U) [Mass/Vol] Normal mg/dL Normal [facility] Urine hemoglobin detection b y automated test stripOrdered By: Dalton Ceja on 02-03-2022 Hemoglobin Auto test strip Ql (U) 3+ Negative [facility] Urine leukocyte esterase det ection by automated test stripOrdered By: Dalton Ceja on 02-03-2022 Leukocyte esterase Auto test strip Ql (U) 4+ Negative [facility] Urobilinogen Auto test strip (U) [Mass/Vol]Ordered By: Dalton Ceja on 02-03-2022 Urobilinogen (U) [Mass/Vol] Normal mg/dL Normal [facility] pH Auto test strip (U)Ordere d By: Dalton Ceja on 02-03-2022 pH (U) 7.0 [pH] 5.0-9.0 [facility] Activated partial thrombopla stin time (aPTT) in platelet poor plasma by coagulation aOrdered By: Berto Villasenor on 11-13-2021 aPTT Coag (PPP) [Time] 31.1 s 25.1-36.5 [facility] Albumin [Mass/volume] in Ser um or PlasmaOrdered By: Berto Villasenor on 11-13-2021 Albumin [Mass/Vol] 3.5 g/dL 3.2-5.5 [facility] Basophils Auto (Bld) [#/Vol] Ordered By: Berto Villasenor on 11-13-2021 Basophils (Bld) [#/Vol] 0.0 10*3/uL 0.0-0.2 [facility] Basophils/100 WBC Auto (Bld) Ordered By: Berto Villasenor on 11-13-2021 Basophils/100 WBC (Bld) 0.5 % . [facility] Blood hemoglobin measurement (mass/volume)Ordered By: Berto Villasenor on 11-13-2021 Hemoglobin (Bld) [Mass/Vol] 14.8 g/dL 11.8-15.4 [facility] Blood leukocytes automated c ount (number/volume)Ordered By: Berto Villasenor on 11-13-2021 WBC (Bld) [#/Vol] 7.8 10*3/uL 4.5-11.0 [facility] Creatinine and Glomerular fi ltration rate.predicted panel (S/P/Bld)Ordered By: Berto Villasenor on 11-13-2021 Creatinine [Mass/Vol] 0.92 mg/dL 0.44-1.03 [facility] Direct bilirubin measurement Ordered By: Berto Villasenor on 11-13-2021 Bilirubin.direct [Mass/Vol] mg/dL 0.0-0.4 [facility] Eosinophils Auto (Bld) [#/Vo l]Ordered By: Berto Villasenor on 11-13-2021 Eosinophils (Bld) [#/Vol] 0.2 10*3/uL 0.0-0.45 [facility] Eosinophils/100 WBC Auto (Bl d)Ordered By: Berto Villasenor on 11-13-2021 Eosinophils/100 WBC (Bld) 2.5 % . [facility] Erythrocyte distribution wid th Auto (RBC) [Ratio]Ordered By: Berto Villasenor on 11-13-2021 Erythrocyte distribution width (RBC) [Ratio] 13.6 % 11.9-15.3 [facility] Estimated glomerular filtrat ion rate (GFR) non- AmericanOrdered By: Berto Villasenor on 11-13-2021 GFR/1.73 sq M.predicted among non-blacks MDRD (S/P/Bld) [Vol rate/Area] > 60 mL/Min [facility] Globulin Calc (S) [Mass/Vol] Ordered By: Berto Villasenor on 11-13-2021 Globulin (S) [Mass/Vol] 3.6 g/dL [facility] Hematocrit Auto (Bld) [Volum e fraction]Ordered By: Berto Villasenor on 11-13-2021 Hematocrit (Bld) [Volume fraction] 45.1 % 34.0-46.4 [facility] Laboratory - Chemistry and C hemistry - challengeOrdered By: Berto Villasenor on 11-13-2021 Lipase [Catalytic activity/Vol] 33.0 U/L 22-51 [facility] Laboratory - CoagulationOrde red By: Berto Villasenor on 11-13-2021 PT Coag (PPP) [Time] 11.7 s 9.0-12.9 [facility] Laboratory - Hematology and Cell countsOrdered By: Berto Villasenor on 11-13-2021 Nucleated RBC/100 WBC (Bld) [Ratio] 0.1 % 0-0.5 [facility] Lactate dehydrogenase measur ement (enzymatic activity/volume)Ordered By: Berto Villasenor on 11-13-2021 LDH (Unsp spec) [Catalytic activity/Vol] 154 U/L 45-190 [facility] Lymphocytes Auto (Bld) [#/Vo l]Ordered By: Berto Villasenor on 11-13-2021 Lymphocytes (Bld) [#/Vol] 2.5 10*3/uL 1.00-4.8 [facility] Lymphocytes/100 WBC Auto (Bl d)Ordered By: Berto Villasenor on 11-13-2021 Lymphocytes/100 WBC (Bld) 31.5 % . [facility] MCH Auto (RBC) [Entitic mass ]Ordered By: Berto Villasenor on 11-13-2021 MCH (RBC) [Entitic mass] 30.8 pg 24.7-34.3 [facility] MCHC Auto (RBC) [Mass/Vol]Or dered By: Berto Villasneor on 11-13-2021 MCHC (RBC) [Mass/Vol] 32.8 g/dL 32.0-35.0 [facility] MCV Auto (RBC) [Entitic vol] Ordered By: Berto Villasenor on 11-13-2021 MCV (RBC) [Entitic vol] 94.1 fL 80-100 [facility] Monocyte %Ordered By: Berto Villasenor on 11-13-2021 Monocyte % 27 umol/L 11-35 [facility] Monocytes Auto (Bld) [#/Vol] Ordered By: Berto Villasenor on 11-13-2021 Monocytes (Bld) [#/Vol] 0.5 10*3/uL 0.0-0.8 [facility] Monocytes/100 WBC Auto (Bld) Ordered By: Berto Villasenor on 11-13-2021 Monocytes/100 WBC (Bld) 6.5 % . [facility] Neutrophils Auto (Bld) [#/Vo l]Ordered By: Berto Villasenor on 11-13-2021 Neutrophils (Bld) [#/Vol] 4.6 10*3/uL 1.8-7.7 [facility] Neutrophils/100 WBC Auto (Bl d)Ordered By: Berto Villasenor on 11-13-2021 Neutrophils/100 WBC (Bld) 59.0 % . [facility] No Panel InformationOrdered By: Breto Villasenor on 11-13-2021 Estimated GFR () > 60 mL/Min [facility] Comment on above: GFR estimated refere nce range: According to KDOQI guidelines, <60 ml/min/1.73m2 is sufficient to diagnose a patient with chronic kidney disease. Pharmacy Creatinine Clearance (Chem 92.37 [facility] Platelet mean volume Auto (B ld) [Entitic vol]Ordered By: Berto Villasenor on 11-13-2021 Platelet mean volume (Bld) [Entitic vol] 9.2 fL 6.3-10.7 [facility] Platelet poor plasma interna tional normalized ratio (INR) by coagulation assay (relatOrdered By: Berto Villasenor on 11-13-2021 INR Coag (PPP) [Relative time] 1.0 {INR} [facility] Comment on above: INR Therapeutic Rang [...] 11-13-2021 Platelets (Bld) [#/Vol] 281 10*3/uL 150-450 [facility] Protein [Mass/volume] in Ser um or PlasmaOrdered By: Berto Villasenor on 11-13-2021 Protein [Mass/Vol] 7.1 g/dL 6.1-7.9 [facility] RBC Auto (Bld) [#/Vol]Ordere d By: Berto Villasenor on 11-13-2021 RBC (Bld) [#/Vol] 4.79 10*6/uL 3.60-5.00 [facility] Serum or plasma alanine cardoso otransferase measurement without P-5'-P (enzymatic activiOrdered By: Berto Villasenor on 11-13-2021 ALT No additional P-5'-P [Catalytic activity/Vol] 96 U/L 10-60 [facility] Serum or plasma albumin/glob ulin mass ratioOrdered By: Berto Villasenor on 11-13-2021 Albumin/Globulin [Mass ratio] 1.0 {ratio} [facility] Serum or plasma alkaline sintia sphatase measurement (enzymatic activity/volume)Ordered By: Berto Villasenor on 11-13-2021 ALP [Catalytic activity/Vol] 87 U/L 32-92 [facility] Serum or plasma aspartate am inotransferase measurement (enzymatic activity/volume)Ordered By: Berto Villasenor on 11-13-2021 AST [Catalytic activity/Vol] 64 U/L 10-42 [facility] Serum or plasma calcium skyla urement (mass/volume)Ordered By: Berto Villasenor on 11-13-2021 Calcium [Mass/Vol] 9.0 mg/dL 8.2-10.2 [facility] Serum or plasma chloride florin surement (moles/volume)Ordered By: Berto Villasenor on 11-13-2021 Chloride [Moles/Vol] 101 mmol/L 95-114 [facility] Serum or plasma glucose skyla urement (mass/volume)Ordered By: Berto Villasenor on 11-13-2021 Glucose [Mass/Vol] 96 mg/dL 70-100 [facility] Comment on above: ADA recommended refe rence [...] Berto Villasenor on 11-13-2021 Bilirubin.indirect [Mass/Vol] TNP [facility] Comment on above: Test not performed Serum or plasma potassium me asurement (moles/volume)Ordered By: Berto Villasenor on 11-13-2021 Potassium [Moles/Vol] 4.0 mmol/L 3.5-5.1 [facility] Serum or plasma sodium measu rement (moles/volume)Ordered By: Berto Villasenor on 11-13-2021 Sodium [Moles/Vol] 135 mmol/L 136-146 [facility] Serum or plasma total biliru bin measurement (mass/volume)Ordered By: Berto Villasenor on 11-13-2021 Bilirubin [Mass/Vol] 0.4 mg/dL 0.3-1.2 [facility] Serum or plasma total carbon dioxide measurement (moles/volume)Ordered By: Berto Villasenor on 11-13-2021 CO2 [Moles/Vol] 24.3 mmol/L 22.0-30.0 [facility] Serum or plasma urea nitroge n measurement (mass/volume)Ordered By: Berto Villasenor on 11-13-2021 Urea nitrogen [Mass/Vol] 14 mg/dL 12-15 [facility] Basophils Auto (Bld) [#/Vol] Ordered By: Felice Veliz on 10-30-2021 Basophils (Bld) [#/Vol] 0.1 10*3/uL 0.0-0.2 [facility] Basophils/100 WBC Auto (Bld) Ordered By: Felice Veliz on 10-30-2021 Basophils/100 WBC (Bld) 0.8 % . [facility] Blood hemoglobin measurement (mass/volume)Ordered By: Felice Veliz on 10-30-2021 Hemoglobin (Bld) [Mass/Vol] 14.9 g/dL 11.8-15.4 [facility] Blood leukocytes automated c ount (number/volume)Ordered By: Felice Veliz on 10-30-2021 WBC (Bld) [#/Vol] 8.2 10*3/uL 4.5-11.0 [facility] Body fluid albumin measureme nt (mass/volume)Ordered By: Felice Veliz on 10-30-2021 Albumin (Body fld) [Mass/Vol] 3.5 g/dL 3.2-5.5 [facility] Creatinine and Glomerular fi ltration rate.predicted panel (S/P/Bld)Ordered By: Felice Veliz on 10-30-2021 Creatinine [Mass/Vol] 0.74 mg/dL 0.44-1.03 [facility] Diagnostic impression [Inter pretation] in Specimen NarrativeOrdered By: Felice Veliz on 10-30-2021 Diagnostic impression [employer] (Unsp spec) [Interp] See comment . [facility] Comment on above: Positive HCV antibod y screen with the presence of HCV RNA is consistent with active infection. Performed at: [address], [place] [id number] Agriculture Mechanic: Gavin Mott PhD, Phone: [phone] Performed at: [address] [id number] Agriculture Mechanic: Brianda Durant MD, Phone: [phone] Positive HCV antibod y screen with the presence of HCV RNAis consistent with active infection.Performed at: [address] [id number] Director: Gavin Mott PhD, Phone: [phone] at: [address] [id number] Director: Brianda Durant MD, Phone: [phone] Eosinophils Auto (Bld) [#/Vo l]Ordered By: Felice Veliz on 10-30-2021 Eosinophils (Bld) [#/Vol] 0.1 10*3/uL 0.0-0.45 [facility] Eosinophils/100 WBC Auto (Bl d)Ordered By: Felice Veliz on 10-30-2021 Eosinophils/100 WBC (Bld) 1.4 % . [facility] Erythrocyte distribution wid th Auto (RBC) [Ratio]Ordered By: Felice Velzi on 10-30-2021 Erythrocyte distribution width (RBC) [Ratio] 13.4 % 11.9-15.3 [facility] Estimated glomerular filtrat ion rate (GFR) non- AmericanOrdered By: Felice Veliz on 10-30-2021 GFR/1.73 sq M.predicted among non-blacks MDRD (S/P/Bld) [Vol rate/Area] > 60 mL/Min [facility] Globulin Calc (S) [Mass/Vol] Ordered By: Felice Veliz on 10-30-2021 Globulin (S) [Mass/Vol] 3.5 g/dL [facility] Hematocrit Auto (Bld) [Volum e fraction]Ordered By: Felice Veliz on 10-30-2021 Hematocrit (Bld) [Volume fraction] 45.0 % 34.0-46.4 [facility] Hepatitis B virus surface Ag [Presence] in Serum or Plasma by ImmunoassayOrdered By: Felice Veliz on 10-30-2021 HBV surface Ag IA Ql Negative Negative [facility] Hepatitis C virus RNA [Units /volume] (viral load) in Serum or Plasma by LINDSEY with probOrdered By: Felice Veliz on 10-30-2021 HCV RNA LINDSEY+probe Qn [id number] [IU]/mL . [facility] Hepatitis C virus RNA [log u nits/volume] (viral load) in Serum or Plasma by LINDSEY withOrdered By: Felice Veliz on 10-30-2021 HCV RNA LINSDEY+probe [Log units/Vol] 7.124 . [facility] Comment on above: Result Units: log10 IU/mL Laboratory - Chemistry and C hemistry - challengeOrdered By: Felice Veliz on 10-30-2021 Amylase [Catalytic activity/Vol] 77 U/L 7-64 [facility] Laboratory - Hematology and Cell countsOrdered By: Fleice Veliz on 10-30-2021 Nucleated RBC/100 WBC (Bld) [Ratio] 0.0 % 0-0.5 [facility] Lymphocytes Auto (Bld) [#/Vo l]Ordered By: Felice Veliz on 10-30-2021 Lymphocytes (Bld) [#/Vol] 1.9 10*3/uL 1.00-4.8 [facility] Lymphocytes/100 WBC Auto (Bl d)Ordered By: Felice Veliz on 10-30-2021 Lymphocytes/100 WBC (Bld) 23.9 % . [facility] MCH Auto (RBC) [Entitic mass ]Ordered By: Felice Veliz on 10-30-2021 MCH (RBC) [Entitic mass] 31.0 pg 24.7-34.3 [facility] MCHC Auto (RBC) [Mass/Vol]Or dered By: Felice Veliz on 10-30-2021 MCHC (RBC) [Mass/Vol] 33.1 g/dL 32.0-35.0 [facility] MCV Auto (RBC) [Entitic vol] Ordered By: Felice Veliz on 10-30-2021 MCV (RBC) [Entitic vol] 93.5 fL 80-100 [facility] Monocytes Auto (Bld) [#/Vol] Ordered By: Felice Veliz on 10-30-2021 Monocytes (Bld) [#/Vol] 0.7 10*3/uL 0.0-0.8 [facility] Monocytes/100 WBC Auto (Bld) Ordered By: Felice Veliz on 10-30-2021 Monocytes/100 WBC (Bld) 8.5 % . [facility] Neutrophils Auto (Bld) [#/Vo l]Ordered By: Felice Veliz on 10-30-2021 Neutrophils (Bld) [#/Vol] 5.3 10*3/uL 1.8-7.7 [facility] Neutrophils/100 WBC Auto (Bl d)Ordered By: Felice Veliz on 10-30-2021 Neutrophils/100 WBC (Bld) 65.4 % . [facility] No Panel InformationOrdered By: Felice Veliz on 10-30-2021 Estimated GFR () > 60 mL/Min [facility] Comment on above: GFR estimated refere nce range: According to KDOQI guidelines, <60 ml/min/1.73m2 is sufficient to diagnose a patient with chronic kidney disease. Hepatitis A IgM Antibody Negative Negative [facility] Hepatitis B Core IgM Antibody Negative Negative [facility] Hepatitis C RNA Qnt (PCR) Test Info See comment . [facility] Comment on above: The quantitative ran ge of this assay is 15 IU/mL to 100 million IU/mL. The quantitative ran ge of this assay is 15 IU/mL to 100million IU/mL. Pharmacy Creatinine Clearance (Chem N/A [facility] Platelet mean volume Auto (B ld) [Entitic vol]Ordered By: Felice Veliz on 10-30-2021 Platelet mean volume (Bld) [Entitic vol] 9.6 fL 6.3-10.7 [facility] Platelets Auto (Bld) [#/Vol] Ordered By: Felice Veliz on 10-30-2021 Platelets (Bld) [#/Vol] 251 10*3/uL 150-450 [facility] Protein [Mass/volume] in Ser um or PlasmaOrdered By: Felice Veliz on 10-30-2021 Protein [Mass/Vol] 7.0 g/dL 6.1-7.9 [facility] RBC Auto (Bld) [#/Vol]Ordere d By: Felice Veliz on 10-30-2021 RBC (Bld) [#/Vol] 4.81 10*6/uL 3.60-5.00 [facility] Serum nuclear antibody titer Ordered By: Felice Veliz on 10-30-2021 Nuclear Ab (S) [Titer] Negative . [facility] Comment on above: Negative <1:80 Borderline 1:80 Positive >1:80 ICAP nomenclature: AC-[id number] For more information about Hep-2 cell patterns use [employer]org, the official website for the International Consensus on Antinuclear Antibody (BEATRIZ) Patterns (ICAP). Speckled cytoplasmic fluorescence is present. The antibodies noted in this pattern may be associated with, but not restricted to, primary biliary cirrhosis (PBC), polymyositis and dermatomyositis (PM/DM), and/or systemic lupus erythematosus (SLE). Performed at: [facility] [address] [id number] Agriculture Mechanic: Gavin Mott PhD, Phone: [phone] Negative <1:80 Borde rline 1:80 Positive >1:80ICAP nomenclature: [id number] more information about Hep-2 cell patterns use[employer].org, the official website for theInternational Consensus on Antinuclear Antibody (BEATRIZ)Patterns (ICAP).Speckled cytoplasmic fluorescence is present. Theantibodies noted in this pattern may be associated with,but not restricted to, primary biliary cirrhosis (PBC),polymyositis and dermatomyositis (PM/DM), and/or systemiclupus erythematosus (SLE).Performed at: [facility] [address] [id number] Director: Gavin Mott PhD, Phone: [phone] Serum or plasma alanine cardoso otransferase measurement without P-5'-P (enzymatic activiOrdered By: Felice Veliz on 10-30-2021 ALT No additional P-5'-P [Catalytic activity/Vol] 118 U/L 10-60 [facility] Serum or plasma albumin/glob ulin mass ratioOrdered By: Felice Veliz on 10-30-2021 Albumin/Globulin [Mass ratio] 1.0 {ratio} [facility] Serum or plasma alkaline sintia sphatase measurement (enzymatic activity/volume)Ordered By: Felice Veliz on 10-30-2021 ALP [Catalytic activity/Vol] 79 U/L 32-92 [facility] Serum or plasma aspartate am inotransferase measurement (enzymatic activity/volume)Ordered By: Felice Veliz on 10-30-2021 AST [Catalytic activity/Vol] 95 U/L 10-42 [facility] Serum or plasma calcium skyla urement (mass/volume)Ordered By: Felice Veliz on 10-30-2021 Calcium [Mass/Vol] 8.8 mg/dL 8.2-10.2 [facility] Serum or plasma chloride florin surement (moles/volume)Ordered By: Felice Veliz on 10-30-2021 Chloride [Moles/Vol] 101 mmol/L 95-114 [facility] Serum or plasma glucose skyla urement (mass/volume)Ordered By: Felice Veliz on 10-30-2021 Glucose [Mass/Vol] 100 mg/dL 70-100 [facility] Comment on above: ADA recommended refe rence [...] antibody signal/cutoff ratio by immunoassay (relatiOrdered By: Felice Veliz on 10-30-2021 HCV Ab Signal/Cutoff IA [Rel units/Vol] >11.0 s/co ratio 0.0-0.9 [facility] Serum or plasma potassium me asurement (moles/volume)Ordered By: Felice Veliz on 10-30-2021 Potassium [Moles/Vol] 4.2 mmol/L 3.5-5.1 [facility] Serum or plasma sodium measu rement (moles/volume)Ordered By: Felice Veliz on 10-30-2021 Sodium [Moles/Vol] 136 mmol/L 136-146 [facility] Serum or plasma total biliru bin measurement (mass/volume)Ordered By: Felice Veliz on 10-30-2021 Bilirubin [Mass/Vol] 0.3 mg/dL 0.3-1.2 [facility] Serum or plasma total carbon dioxide measurement (moles/volume)Ordered By: Felice Veliz on 10-30-2021 CO2 [Moles/Vol] 22.6 mmol/L 22.0-30.0 [facility] Serum or plasma urea nitroge n measurement (mass/volume)Ordered By: Felice Veliz on 10-30-2021 Urea nitrogen [Mass/Vol] 11 mg/dL 12-15 [facility] CBC AUTO DIFFon 10-15-2021 BASO # 0.0 103/ul Normal 0.0-0.1 [facility] Comment on above: Performed By: #### C BC #### [facility] [address] [address] [address] Nolan Biggs Basophils/100 WBC (Bld) 0.2 % Normal 0.2-2.0 [facility] Comment on above: Performed By: #### C BC #### [facility] [address] [address] [address] Nolan Biggs EO # 0.1 103/ul Normal 0.0-0.7 [facility] Comment on above: Performed By: #### C BC #### [facility] [address] [address] [address] Nolan Biggs Eosinophils/100 WBC (Bld) 2.0 % Normal 0.9-7.0 [facility] Comment on above: Performed By: #### C BC #### [facility] [address] [address] [address] Nolan Biggs Erythrocyte distribution width (RBC) [Ratio] 12.7 % Normal 11.0-15.0 [facility] Comment on above: Performed By: #### C BC #### [facility] [address] [address] [address] Nolan Biggs Hematocrit (Bld) [Volume fraction] 43.7 % Normal 36.0-48.0 [facility] Comment on above: Performed By: #### C BC #### [facility] [address] [address] [address] Nolan Biggs Hemoglobin (Bld) [Mass/Vol] 14.8 g/dL Normal 12.0-16.0 [facility] Comment on above: Performed By: #### C BC #### [facility] [address] [address] [address] Nolan Biggs IG # 0.02 10e3/ul Normal 0.00-0.03 [facility] Comment on above: Performed By: #### C BC #### [facility] [address] [address] [address] Nolan Biggs IG % 0.3 % Normal 0.0-0.5 [facility] Comment on above: Performed By: #### C BC #### [facility] [address] [place] [address] Dr. Nolan Biggs LYMPH # 0.4 103/ul Critically low 1.2-3.8 [facility] Comment on above: Performed By: #### C BC #### [facility] [address] [place] [address] Dr. Nolan Biggs Lymphocytes/100 WBC (Bld) 7.0 % Critically low 20.5-60.0 [facility] Comment on above: Performed By: #### C BC #### [facility] [address] [place] [address] Dr. Nolan Biggs MANUAL DIFF REQ NO Normal [facility] Comment on above: Performed By: #### C BC #### [facility] [address] [place] [address] Dr. Nolan Biggs MCH (RBC) [Entitic mass] 31.3 pg Normal 26.7-34.0 [facility] Comment on above: Performed By: #### C BC #### [facility] [address] [place] [address] Dr. Nolan Biggs MCHC (RBC) [Mass/Vol] 33.9 g/dL Normal 29.9-35.2 [facility] Comment on above: Performed By: #### C BC #### [facility] [address] [place] [address] Dr. Nolan Biggs MCV (RBC) [Entitic vol] 92.4 fL Normal 81.0-99.0 [facility] Comment on above: Performed By: #### C BC #### [facility] [address] [place] [address] Dr. Nolan Biggs MONO # 0.3 103/ul Normal 0.3-0.8 [facility] Comment on above: Performed By: #### C BC #### [facility] [address] [place] [address] Dr. Nolan Biggs Monocytes/100 WBC (Bld) 5.7 % Normal 1.7-12.0 [facility] Comment on above: Performed By: #### C BC #### [facility] [address] [place] [address] Dr. Nolan Biggs NEUT # 5.1 103/ul Normal 1.4-6.5 [facility] Comment on above: Performed By: #### C BC #### [facility] [address] [place] [address] Dr. Nolan Biggs Neutrophils/100 WBC (Bld) 84.8 % Critically high 43.0-75.0 [facility] Comment on above: Performed By: #### C BC #### [facility] [address] [place] [address] Dr. Nolan Biggs Platelet mean volume (Bld) [Entitic vol] 10.5 fL Normal 9.5-13.5 [facility] Comment on above: Performed By: #### C BC #### [facility] [address] [place] [address] Dr. Nolan Biggs PLT 218 103/ul Normal 150-450 [facility] Comment on above: Performed By: #### C BC #### [facility] [address] [place] [address] Dr. Nolan Biggs RBC 4.73 106/ul Normal 4.20-5.40 [facility] Comment on above: Performed By: #### C BC #### [facility] [address] [place] [address] Dr. Nolan Biggs WBC 6.0 103/ul Normal 4.0-11.0 [facility] Comment on above: Performed By: #### C BC #### [facility] [address] [place] [address] Dr. Nolan DAVIS URINE PROFILEon 2 Bilirubin Ql (U) Negative Normal NEGATIVE [facility] Comment on above: Performed By: #### E RUR, PREGU #### [facility] [address] [place] [address] Dr. Nolan Biggs Clarity (U) CLEAR Normal CLEAR [facility] Comment on above: Performed By: #### E RUR, PREGU #### [facility] [address] [place] [address] Dr. Nolan Biggs Color (U) YELLOW Normal YELLOW [facility] Comment on above: Performed By: #### E RUR, PREGU #### [facility] [address] [place] [address] Dr. Nolan URBINA A micrscopic examination will be performed if indicated. Normal [facility] Comment on above: Performed By: #### E RUR, PREGU #### [facility] [address] [place] [address] Dr. Nolan Biggs Glucose Ql (U) Negative Normal NEGATIVE [facility] Comment on above: Performed By: #### E RUR, PREGU #### [facility] [address] [place] [address] Dr. Nolan Biggs Hemoglobin Ql (U) Negative Normal NEGATIVE [facility] Comment on above: Performed By: #### E RUR, PREGU #### [facility] [address] [place] [address] Dr. Nolan Biggs Ketones Ql (U) Negative Normal NEGATIVE [facility] Comment on above: Performed By: #### E RUR, PREGU #### [facility] [address] [place] [address] Dr. Nolan Biggs LEUKOCYTES Negative Normal NEGATIVE [facility] Comment on above: Performed By: #### E RUR, PREGU #### [facility] [address] [place] [address] Dr. Nolan Biggs Nitrite Ql (U) Negative Normal NEGATIVE [facility] Comment on above: Performed By: #### E RUR, PREGU #### [facility] [address] [place] [address] Dr. Nolan Biggs pH (U) 7.0 [pH] Normal 5-9 [facility] Comment on above: Performed By: #### E RUR, PREGU #### [facility] [address] [place] [address] Dr. Nolan Biggs SPEC GRAVITY 1.020 Normal 1.005-<=1.02 5 [facility] Comment on above: Performed By: #### E RUR, PREGU #### [facility] [address] [place] [address] Dr. Nolan Biggs UA PROTEIN TRACE Normal NEGATIVE/ TRACE [facility] Comment on above: Performed By: #### E RUR, PREGU #### [facility] [address] [place] [address] Dr. Nolan Biggs UR MICRO IND NOT INDICATED Normal [facility] Comment on above: Performed By: #### E RUR, PREGU #### [facility] [address] [place] [address] Dr. Nolan Biggs Urobilinogen Qn (U) 1.0 {Jan'U}/dL Normal 0.2 - 1. 0 [facility] Comment on above: Performed By: #### E RUR, PREGU #### [facility] [address] [place] [address] Dr. Nolan Biggs LIPASEon 10-15-2021 Lipase [Catalytic activity/Vol] 56.0 U/L Critically low 73.0-393.0 [facility] Comment on above: Performed By: #### L IPA, CMP #### [facility] [address] [place] [address] Dr. Nolan Biggs URon 10-15-2021 , QUAL Negative Normal NEGATIVE [facility] Comment on above: Performed By: #### E RUR, PREGU #### [facility] [address] [place] [address] Dr. Nolan Biggs PROF 14(COMP METB)on 022 Albumin [Mass/Vol] 3.5 g/dL Normal 3.4-5.0 [facility] Comment on above: Performed By: #### L IPA, CMP #### [facility] [address] [address] [address] Nolan Biggs Albumin/Globulin [Mass ratio] 0.9 {ratio} Normal [facility] Comment on above: Performed By: #### L IPA, CMP #### [facility] [address] [address] [address] Nolan Biggs ALP [Catalytic activity/Vol] 78 U/L Normal 46-116 [facility] Comment on above: Performed By: #### L IPA, CMP #### [facility] [address] [address] [address] Nolan Biggs ALT [Catalytic activity/Vol] 157 U/L Critically high 14-59 [facility] Comment on above: Performed By: #### L IPA, CMP #### [facility] [address] [address] [address] Nolan Biggs Anion gap [Moles/Vol] 11.3 mmol/L Normal [facility] Comment on above: Performed By: #### L IPA, CMP #### [facility] [address] [address] [address] Nolan Biggs AST [Catalytic activity/Vol] 84 U/L Critically high 15-37 [facility] Comment on above: Performed By: #### L IPA, CMP #### [facility] [address] [address] [address] Nolan Biggs Bilirubin [Mass/Vol] 0.5 mg/dL Normal 0.2-1.0 [facility] Comment on above: Performed By: #### L IPA, CMP #### [facility] [address] [address] [address] Nolan Biggs Calcium [Mass/Vol] 8.2 mg/dL Critically low 8.5-10.1 [facility] Comment on above: Performed By: #### L IPA, CMP #### [facility] [address] [address] [address] Nolan Biggs Chloride [Moles/Vol] 106 mmol/L Normal 98-107 [facility] Comment on above: Performed By: #### L IPA, CMP #### [facility] [address] [address] [address] Nolan Biggs CO2 [Moles/Vol] 23.6 mmol/L Normal 21.0-32.0 [facility] Comment on above: Performed By: #### L IPA, CMP #### [facility] [address] [address] [address] Nolan Biggs Creatinine [Mass/Vol] 0.83 mg/dL Normal 0.55-1.02 [facility] Comment on above: Performed By: #### L IPA, CMP #### [facility] [address] [address] [address] Nolan Biggs EGFR-AF MONGOLIAN >60 Normal >=60 [facility] Comment on above: Performed By: #### L IPA, CMP #### [facility] [address] [address] [address] Nolan Biggs EGFR-NON AF MONGOLIAN >60 Normal >=60 [facility] Comment on above: Performed By: #### L IPA, CMP #### [facility] [address] [address] [address] Nolan Biggs Globulin (S) [Mass/Vol] 4.0 g/dL Normal [facility] Comment on above: Performed By: #### L IPA, CMP #### [facility] [address] [address] [address] Nolan Biggs Glucose [Mass/Vol] 115 mg/dL Critically high 74-106 [facility] Comment on above: Performed By: #### L IPA, CMP #### [facility] [address] [address] [address] Nolan Biggs Potassium [Moles/Vol] 3.9 mmol/L Normal 3.5-5.1 [facility] Comment on above: Performed By: #### L IPA, CMP #### [facility] [address] [address] [address] Nolan Biggs Protein [Mass/Vol] 7.5 g/dL Normal 6.4-8.2 [facility] Comment on above: Performed By: #### L IPA, CMP #### [facility] [address], [place] [address] Dr. Nolan Biggs Sodium [Moles/Vol] 137 mmol/L Normal 136-145 [facility] Comment on above: Performed By: #### L IPA, CMP #### [facility] [address], [place] [address] Dr. Nolan Biggs Urea nitrogen [Mass/Vol] 13.0 mg/dL Normal 7.0-18.0 [facility] Comment on above: Performed By: #### L IPA, CMP #### [facility] [address] [place], [place] [address] Dr. Nolan Biggs Urea nitrogen/Creatinine [Mass ratio] 15.7 mg/mg Normal [facility] Comment on above: Performed By: #### L IPA, CMP #### [facility] [address] [address] [address] Nolan Biggs XR ABD FLAT UP_PA [...] PROMISE MCKEON Date: 2021-10-15 12:58 Normal [facility] Serum or plasma potassium me asurement (moles/volume)Ordered By: José Miguel Mcnamara on 10-10-2021 Potassium [Moles/Vol] 3.9 mmol/L 3.5-5.1 [facility] Activated partial thrombopla stin time (aPTT) in platelet poor plasma by coagulation aOrdered By: José Miguel Mcnamara on 10-09-2021 aPTT Coag (PPP) [Time] 24.4 s 25.1-36.5 [facility] Automated erythrocytes count in urine sediment (number/area)Ordered By: PROVIDER TEMP on 10-09-2021 RBC Auto (Urine sed) [#/Area] 1-2 [HPF] 0-4 [facility] Automated leukocytes count i n urine sediment (number/area)Ordered By: PROVIDER TEMP on 10-09-2021 WBC Auto (Urine sed) [#/Area] 0-1 [HPF] 0-4 [facility] Basophils Auto (Bld) [#/Vol] Ordered By: José Miguel Mcnamara on 10-09-2021 Basophils (Bld) [#/Vol] 0.1 10*3/uL 0.0-0.2 [facility] Basophils/100 WBC Auto (Bld) Ordered By: José Miguel Mcnamara on 10-09-2021 Basophils/100 WBC (Bld) 0.7 % . [facility] Bilirubin Test strip Ql (U)O rdered By: PROVIDER BEBETOP on 10-09-2021 Bilirubin Ql (U) Negative Negative [facility] Blood hemoglobin measurement (mass/volume)Ordered By: José Miguel Mcnamara on 10-09-2021 Hemoglobin (Bld) [Mass/Vol] 14.4 g/dL 11.8-15.4 [facility] Blood leukocytes automated c ount (number/volume)Ordered By: José Miguel Mcnamara on 10-09-2021 WBC (Bld) [#/Vol] 8.3 10*3/uL 4.5-11.0 [facility] Body fluid albumin measureme nt (mass/volume)Ordered By: José Miguel Mcnamara on 10-09-2021 Albumin (Body fld) [Mass/Vol] 3.4 g/dL 3.2-5.5 [facility] Color Auto (U)Ordered By: RICH KURTZ on 10-09-2021 Color (U) Yellow Yellow [facility] Creatinine and Glomerular fi ltration rate.predicted panel (S/P/Bld)Ordered By: José Miguel Mcnamara on 10-09-2021 Creatinine [Mass/Vol] 0.94 mg/dL 0.44-1.03 [facility] Direct bilirubin measurement Ordered By: José Miguel Mcnamara on 10-09-2021 Bilirubin.direct [Mass/Vol] 0.3 mg/dL 0.0-0.4 [facility] Eosinophils Auto (Bld) [#/Vo l]Ordered By: José Miguel Mcnamara on 10-09-2021 Eosinophils (Bld) [#/Vol] 0.3 10*3/uL 0.0-0.45 [facility] Eosinophils/100 WBC Auto (Bl d)Ordered By: José Miguel Mcnamara on 10-09-2021 Eosinophils/100 WBC (Bld) 3.1 % . [facility] Erythrocyte distribution wid th Auto (RBC) [Ratio]Ordered By: José Miguel Mcnamara on 10-09-2021 Erythrocyte distribution width (RBC) [Ratio] 13.2 % 11.9-15.3 [facility] Estimated glomerular filtrat ion rate (GFR) non- AmericanOrdered By: José Miguel Mcnamara on 10-09-2021 GFR/1.73 sq M.predicted among non-blacks MDRD (S/P/Bld) [Vol rate/Area] > 60 mL/Min [facility] Globulin Calc (S) [Mass/Vol] Ordered By: José Miguel Mcnamara on 10-09-2021 Globulin (S) [Mass/Vol] 3.3 g/dL [facility] Hematocrit Auto (Bld) [Volum e fraction]Ordered By: José Miguel Mcnamara on 10-09-2021 Hematocrit (Bld) [Volume fraction] 42.6 % 34.0-46.4 [facility] Ketones Auto test strip (U) [Mass/Vol]Ordered By: MOLLY TEMTami on 10-09-2021 Ketones (U) [Mass/Vol] Trace Negative [facility] - Chemistry and C hemistry - challengeOrdered By: José Miguel Mcnamara on 10-09-2021 Lipase [Catalytic activity/Vol] 31.0 U/L 22-51 [facility] - CoagulationOrde red By: José Miguel Mcnamara on 10-09-2021 PT Coag (PPP) [Time] 11.1 s 9.0-12.9 [facility] - Hematology and Cell countsOrdered By: José Miguel Mcnamara on 10-09-2021 Nucleated RBC/100 WBC (Bld) [Ratio] 0.1 % 0-0.5 [facility] - UrinalysisOrder ed By: PROVIDER TEMP on 10-09-2021 Hyaline casts LM Ql (Urine sed) 0-8 [LPF] 0-8 [facility] Lymphocytes Auto (Bld) [#/Vo l]Ordered By: José Miguel Mcnamara on 10-09-2021 Lymphocytes (Bld) [#/Vol] 2.6 10*3/uL 1.00-4.8 [facility] Lymphocytes/100 WBC Auto (Bl d)Ordered By: José Miguel Mcnamara on 10-09-2021 Lymphocytes/100 WBC (Bld) 30.9 % . [facility] MCH Auto (RBC) [Entitic mass ]Ordered By: José Miguel Mcnamara on 10-09-2021 MCH (RBC) [Entitic mass] 31.7 pg 24.7-34.3 [facility] MCHC Auto (RBC) [Mass/Vol]Or dered By: José Miguel Mcnamara on 10-09-2021 MCHC (RBC) [Mass/Vol] 33.7 g/dL 32.0-35.0 [facility] MCV Auto (RBC) [Entitic vol] Ordered By: José Miguel Mcnamara on 10-09-2021 MCV (RBC) [Entitic vol] 94.3 fL 80-100 [facility] Monocytes Auto (Bld) [#/Vol] Ordered By: José Miguel Mcnamara on 10-09-2021 Monocytes (Bld) [#/Vol] 0.6 10*3/uL 0.0-0.8 [facility] Monocytes/100 WBC Auto (Bld) Ordered By: José Miguel Mcnamara on 10-09-2021 Monocytes/100 WBC (Bld) 6.6 % . [facility] Neutrophils Auto (Bld) [#/Vo l]Ordered By: José Miguel Mcnamara on 10-09-2021 Neutrophils (Bld) [#/Vol] 4.9 10*3/uL 1.8-7.7 [facility] Neutrophils/100 WBC Auto (Bl d)Ordered By: José Miguel Mcnamara on 10-09-2021 Neutrophils/100 WBC (Bld) 58.7 % . [facility] Nitrite Test strip Ql (U)Ord ered By: PROVIDER TEMP on 10-09-2021 Nitrite Ql (U) Negative Negative [facility] No Panel InformationOrdered By: José Miguel Mcnamara on 10-09-2021 Estimated GFR () > 60 mL/Min [facility] Comment on above: GFR estimated refere nce range: According to KDOQI guidelines, <60 ml/min/1.73m2 is sufficient to diagnose a patient with chronic kidney disease. Pharmacy Creatinine Clearance (Chem 90.41 [facility] Platelet mean volume Auto (B ld) [Entitic vol]Ordered By: José Miguel Mcnamara on 10-09-2021 Platelet mean volume (Bld) [Entitic vol] 9.2 fL 6.3-10.7 [facility] Platelet poor plasma interna tional normalized ratio (INR) by coagulation assay (relatOrdered By: José Miguel Mcnamara on 10-09-2021 INR Coag (PPP) [Relative time] 1.0 {INR} [facility] Comment on above: INR Therapeutic Rang [...] 10-09-2021 Platelets (Bld) [#/Vol] 233 10*3/uL 150-450 [facility] Protein Auto test strip (U) [Mass/Vol]Ordered By: MOLLY KURTZ on 10-09-2021 Protein (U) [Mass/Vol] Trace mg/dL Negative [facility] Protein [Mass/volume] in Ser um or PlasmaOrdered By: José Miguel Mcnamara on 10-09-2021 Protein [Mass/Vol] 6.7 g/dL 6.1-7.9 [facility] RBC Auto (Bld) [#/Vol]Ordere d By: José Miguel Mcnamara on 10-09-2021 RBC (Bld) [#/Vol] 4.52 10*6/uL 3.60-5.00 [facility] Serum or plasma alanine cardoso otransferase measurement without P-5'-P (enzymatic activiOrdered By: José Miguel Mcnamara on 10-09-2021 ALT No additional P-5'-P [Catalytic activity/Vol] 101 U/L 10-60 [facility] Serum or plasma albumin/glob ulin mass ratioOrdered By: José Miguel Mcnamara on 10-09-2021 Albumin/Globulin [Mass ratio] 1.0 {ratio} [facility] Serum or plasma alkaline sintia sphatase measurement (enzymatic activity/volume)Ordered By: José Miguel Mcnamara on 10-09-2021 ALP [Catalytic activity/Vol] 79 U/L 32-92 [facility] Serum or plasma aspartate am inotransferase measurement (enzymatic activity/volume)Ordered By: José Miguel Mcnamara on 10-09-2021 AST [Catalytic activity/Vol] 66 U/L 10-42 [facility] Serum or plasma calcium skyla urement (mass/volume)Ordered By: José Miguel Mcnamara on 10-09-2021 Calcium [Mass/Vol] 8.8 mg/dL 8.2-10.2 [facility] Serum or plasma chloride florin surement (moles/volume)Ordered By: José Miguel Mcnamara on 10-09-2021 Chloride [Moles/Vol] 107 mmol/L 95-114 [facility] Serum or plasma glucose skyla urement (mass/volume)Ordered By: José Miguel Mcnamara on 10-09-2021 Glucose [Mass/Vol] 103 mg/dL 70-100 [facility] Comment on above: ADA recommended refe rence [...] Mcnamara on 10-09-2021 Bilirubin.indirect [Mass/Vol] 0.4 mg/dL [facility] Serum or plasma sodium measu rement (moles/volume)Ordered By: José Miguel Mcnamara on 10-09-2021 Sodium [Moles/Vol] 139 mmol/L 136-146 [facility] Serum or plasma total biliru bin measurement (mass/volume)Ordered By: José Miguel Mcnamara on 10-09-2021 Bilirubin [Mass/Vol] 0.7 mg/dL 0.3-1.2 [facility] Serum or plasma total carbon dioxide measurement (moles/volume)Ordered By: José Miguel Mcnamara on 10-09-2021 CO2 [Moles/Vol] 23.0 mmol/L 22.0-30.0 [facility] Serum or plasma urea nitroge n measurement (mass/volume)Ordered By: José Miguel Mcnamara on 10-09-2021 Urea nitrogen [Mass/Vol] 16 mg/dL 9-23 [facility] Specific gravity Auto test s trip (U) [Rel density]Ordered By: MOLLY KURTZ on 10-09-2021 Specific gravity (U) [Rel density] 1.038 1.001-1.030 [facility] Squamous epithelial cells de tection in urine sediment by light microscopyOrdered By: MOLLY KURTZ on 10-09-2021 Epithelial cells.squamous LM Ql (Urine sed) 3-4 [HPF] 0-2 [facility] Urine bacteria detection by automated methodOrdered By: MOLLY KURTZ on 10-09-2021 Bacteria Auto Ql (U) 1+ None Seen [facility] Urine clarity by refractomet ry automatedOrdered By: MOLLY KURTZ on 10-09-2021 Clarity Refractometry automated (U) Turbid Clear [facility] Urine glucose measurement by automated test strip (mass/volume)Ordered By: MOLLY KURTZ on 10-09-2021 Glucose Auto test strip (U) [Mass/Vol] Normal mg/dL Normal [facility] Urine hemoglobin detection b y automated test stripOrdered By: MOLLY KURTZ on 10-09-2021 Hemoglobin Auto test strip Ql (U) Negative Negative [facility] Urine leukocyte esterase det ection by automated test stripOrdered By: PROVIDER TEMP on 10-09-2021 Leukocyte esterase Auto test strip Ql (U) Negative Negative [facility] Urobilinogen Auto test strip (U) [Mass/Vol]Ordered By: PROVIDER TEMP on 10-09-2021 Urobilinogen (U) [Mass/Vol] Normal mg/dL Normal [facility] pH Auto test strip (U)Ordere d By: PROVIDER TEMP on 10-09-2021 pH (U) 7.0 [pH] 5.0-9.0 [facility] Basophils Auto (Bld) [#/Vol] Ordered By: Dagoberto Romero on 09-19-2021 Basophils (Bld) [#/Vol] 0.0 10*3/uL 0.0-0.2 [facility] Basophils/100 WBC Auto (Bld) Ordered By: Dagoberto Romero on 09-19-2021 Basophils/100 WBC (Bld) 0.3 % . [facility] Blood hemoglobin measurement (mass/volume)Ordered By: Dagoberto Romero on 09-19-2021 Hemoglobin (Bld) [Mass/Vol] 15.0 g/dL 11.8-15.4 [facility] Blood leukocytes automated c ount (number/volume)Ordered By: Dagoberto Romero on 09-19-2021 WBC (Bld) [#/Vol] 6.9 10*3/uL 4.5-11.0 [facility] Creatinine and Glomerular fi ltration rate.predicted panel (S/P/Bld)Ordered By: Dagoberto Romero on 09-19-2021 Creatinine [Mass/Vol] 0.86 mg/dL 0.44-1.03 [facility] Eosinophils Auto (Bld) [#/Vo l]Ordered By: Dagoberto Romero on 09-19-2021 Eosinophils (Bld) [#/Vol] 0.3 10*3/uL 0.0-0.45 [facility] Eosinophils/100 WBC Auto (Bl d)Ordered By: Dagoberto Romero on 09-19-2021 Eosinophils/100 WBC (Bld) 4.7 % . [facility] Erythrocyte distribution wid th Auto (RBC) [Ratio]Ordered By: Dagoberto Romero on 09-19-2021 Erythrocyte distribution width (RBC) [Ratio] 13.1 % 11.9-15.3 [facility] Estimated glomerular filtrat ion rate (GFR) non- AmericanOrdered By: Dagoberto Romero on 09-19-2021 GFR/1.73 sq M.predicted among non-blacks MDRD (S/P/Bld) [Vol rate/Area] > 60 mL/Min [facility] Hematocrit Auto (Bld) [Volum e fraction]Ordered By: Dagoberto Romero on 09-19-2021 Hematocrit (Bld) [Volume fraction] 44.6 % 34.0-46.4 [facility] - Hematology and Cell countsOrdered By: Dagoberto Romero on 09-19-2021 Nucleated RBC/100 WBC (Bld) [Ratio] 0.1 % 0-0.5 [facility] Lymphocytes Auto (Bld) [#/Vo l]Ordered By: Dagoberto Romero on 09-19-2021 Lymphocytes (Bld) [#/Vol] 2.0 10*3/uL 1.00-4.8 [facility] Lymphocytes/100 WBC Auto (Bl d)Ordered By: Dagoberto Romero on 09-19-2021 Lymphocytes/100 WBC (Bld) 28.5 % . [facility] MCH Auto (RBC) [Entitic mass ]Ordered By: Dagoberto Romero on 09-19-2021 MCH (RBC) [Entitic mass] 31.7 pg 24.7-34.3 [facility] MCHC Auto (RBC) [Mass/Vol]Or dered By: Dagoberto Romero on 09-19-2021 MCHC (RBC) [Mass/Vol] 33.7 g/dL 32.0-35.0 [facility] MCV Auto (RBC) [Entitic vol] Ordered By: Dagoberto Romero on 09-19-2021 MCV (RBC) [Entitic vol] 94.2 fL 80-100 [facility] Monocytes Auto (Bld) [#/Vol] Ordered By: Dagoberto Romero on 06-28-2022 Monocytes (Bld) [#/Vol] 0.7 10*3/uL 0.0-0.8 [facility] Monocytes/100 WBC Auto (Bld) Ordered By: Dagoberto Romero on 09-19-2021 Monocytes/100 WBC (Bld) 9.7 % . [facility] Neutrophils Auto (Bld) [#/Vo l]Ordered By: Dagoberto Romero on 09-19-2021 Neutrophils (Bld) [#/Vol] 3.9 10*3/uL 1.8-7.7 [facility] Neutrophils/100 WBC Auto (Bl d)Ordered By: Dagoberto Romero on 09-19-2021 Neutrophils/100 WBC (Bld) 56.8 % . [facility] No Panel InformationOrdered By: Dagoberto Romero on 09-19-2021 Estimated GFR () > 60 mL/Min [facility] Comment on above: GFR estimated refere nce range: According to KDOQI guidelines, <60 ml/min/1.73m2 is sufficient to diagnose a patient with chronic kidney disease. Pharmacy Creatinine Clearance (Chem N/A [facility] Platelet mean volume Auto (B ld) [Entitic vol]Ordered By: Dagoberto Romero on 09-19-2021 Platelet mean volume (Bld) [Entitic vol] 9.6 fL 6.3-10.7 [facility] Platelets Auto (Bld) [#/Vol] Ordered By: Dagoberto Romero on 09-19-2021 Platelets (Bld) [#/Vol] 254 10*3/uL 150-450 [facility] RBC Auto (Bld) [#/Vol]Ordere d By: Dagoberto Romero on 09-19-2021 RBC (Bld) [#/Vol] 4.74 10*6/uL 3.60-5.00 [facility] Serum or plasma calcium skyla urement (mass/volume)Ordered By: Dagoberto Romero on 09-19-2021 Calcium [Mass/Vol] 8.5 mg/dL 8.2-10.2 [facility] Serum or plasma chloride florin surement (moles/volume)Ordered By: Dagoberto Romero on 09-19-2021 Chloride [Moles/Vol] 105 mmol/L 95-114 [facility] Serum or plasma glucose skyla urement (mass/volume)Ordered By: Dagoberto Romero on 09-19-2021 Glucose [Mass/Vol] 97 mg/dL 70-100 [facility] Comment on above: ADA recommended refe rence range Random Glucose Reference Range is dependent on time and content of last meal. Glucose of more than 200 mg/dL in a nonstressed, ambulatory subject supports the diagnosis of Diabetes Mellitus. Serum or plasma potassium me asurement (moles/volume)Ordered By: Dagoberto Romero on 09-19-2021 Potassium [Moles/Vol] 4.1 mmol/L 3.5-5.1 [facility] Serum or plasma sodium measu rement (moles/volume)Ordered By: Dagoberto Romero on 09-19-2021 Sodium [Moles/Vol] 137 mmol/L 136-146 [facility] Serum or plasma total carbon dioxide measurement (moles/volume)Ordered By: Dagoberto Romero on 09-19-2021 CO2 [Moles/Vol] 23.5 mmol/L 22.0-30.0 [facility] Serum or plasma urea nitroge n measurement (mass/volume)Ordered By: Dagoberto Romero on 09-19-2021 Urea nitrogen [Mass/Vol] 12 mg/dL 9- [facility] CBC AUTO DIFFon 09-13-2021 BASO # 0.0 103/ul Normal 0.0-0.1 [facility] Comment on above: Performed By: #### C BC #### [facility] [address] [address] [address] Nolan Biggs Basophils/100 WBC (Bld) 0.2 % Normal 0.2-2.0 [facility] Comment on above: Performed By: #### C BC #### [facility] [address] [address] [address] Nolan Biggs EO # 0.2 103/ul Normal 0.0-0.7 [facility] Comment on above: Performed By: #### C BC #### [facility] [address] [address] [address] Nolan Biggs Eosinophils/100 WBC (Bld) 3.2 % Normal 0.9-7.0 [facility] Comment on above: Performed By: #### C BC #### [facility] [address] [place] [address] Dr. Nolan Biggs Erythrocyte distribution width (RBC) [Ratio] 12.3 % Normal 11.0-15.0 [facility] Comment on above: Performed By: #### C BC #### [facility] [address] [place] [address] Dr. Nolan Biggs Hematocrit (Bld) [Volume fraction] 44.6 % Normal 36.0-48.0 [facility] Comment on above: Performed By: #### C BC #### [facility] [address] [place] [address] Dr. Nolan Biggs Hemoglobin (Bld) [Mass/Vol] 14.8 g/dL Normal 12.0-16.0 [facility] Comment on above: Performed By: #### C BC #### [facility] [address] [place] [address] Dr. Nolan Biggs IG # 0.02 10e3/ul Normal 0.00-0.03 [facility] Comment on above: Performed By: #### C BC #### [facility] [address] [place] [address] Dr. Nolan Biggs IG % 0.3 % Normal 0.0-0.5 [facility] Comment on above: Performed By: #### C BC #### [facility] [address] [place] [address] Dr. Nolan Biggs LYMPH # 2.4 103/ul Normal 1.2-3.8 [facility] Comment on above: Performed By: #### C BC #### [facility] [address] [place] [address] Dr. Nolan Biggs Lymphocytes/100 WBC (Bld) 40.0 % Normal 20.5-60.0 [facility] Comment on above: Performed By: #### C BC #### [facility] [address] [place] [address] Dr. Nolan iBggs MANUAL DIFF REQ NO Normal [facility] Comment on above: Performed By: #### C BC #### [facility] [address] [place] [address] Dr. Nolan Biggs MCH (RBC) [Entitic mass] 30.9 pg Normal 26.7-34.0 [facility] Comment on above: Performed By: #### C BC #### [facility] [address] [place] [address] Dr. Nolan Biggs MCHC (RBC) [Mass/Vol] 33.2 g/dL Normal 29.9-35.2 [facility] Comment on above: Performed By: #### C BC #### [facility] [address] [place] [address] Dr. Nolan Biggs MCV (RBC) [Entitic vol] 93.1 fL Normal 81.0-99.0 [facility] Comment on above: Performed By: #### C BC #### [facility] [address] [place] [address] Dr. Nolan Biggs MONO # 0.5 103/ul Normal 0.3-0.8 [facility] Comment on above: Performed By: #### C BC #### [facility] [address] [place] [address] Dr. Nolan Biggs Monocytes/100 WBC (Bld) 8.4 % Normal 1.7-12.0 [facility] Comment on above: Performed By: #### C BC #### [facility] [address] [place] [address] Dr. Nolan Biggs NEUT # 2.9 103/ul Normal 1.4-6.5 [facility] Comment on above: Performed By: #### C BC #### [facility] [address] [place] [address] Dr. Nolan Biggs Neutrophils/100 WBC (Bld) 47.9 % Normal 43.0-75.0 [facility] Comment on above: Performed By: #### C BC #### [facility] [address] [place] [address] Dr. Nolan Biggs Platelet mean volume (Bld) [Entitic vol] 10.7 fL Normal 9.5-13.5 [facility] Comment on above: Performed By: #### C BC #### [facility] [address], [place] [address] Dr. Nolan Biggs PLT 298 103/ul Normal 150-450 [facility] Comment on above: Performed By: #### C BC #### [facility] [address], [place] [address] Dr. Nolan Biggs RBC 4.79 106/ul Normal 4.20-5.40 [facility] Comment on above: Performed By: #### C BC #### [facility] [address], [place] [address] Dr. Nolan Biggs WBC 6.0 103/ul Normal 4.0-11.0 [facility] Comment on above: Performed By: #### C BC #### [facility] [address], [place] [address] ABD/PELVIS WO CONon [...] LEILANI SOLOMON Date: 2021-09-13 21:13 Normal [facility]24 SARS-CoV-2 (COVID-19) RNA LINDSEY+probe Ql (Unsp spec) Not detected Normal NOT DETECTED [facility] Comment on above: Result Comment: When diagnostic [...] for this test is supported by the [place] of Health and Human Service's declaration that [...] used). Performed By: #### C BC #### [facility] [address] [place] [address] Dr. Nolan Biggs ER URINE PROFILEon 2 Bilirubin Ql (U) SMALL Abnormal NEGATIVE [facility] Comment on above: Performed By: #### E RUR #### [facility] [address] [place] [address] Dr. Nolan Biggs Clarity (U) CLEAR Normal CLEAR [facility] Comment on above: Performed By: #### E RUR #### [facility] [address] [place] [address] Dr. Nolan Biggs Color (U) DK. YELLOW Normal YELLOW [facility] Comment on above: Performed By: #### E RUR #### [facility] [address] [place] [address] Dr. Nolan Biggs ERUAHD A micrscopic examination will be performed if indicated. Normal [facility] Comment on above: Performed By: #### E RUR #### [facility] [address] [place] [address] Dr. Nolan Biggs Glucose Ql (U) Negative Normal NEGATIVE [facility] Comment on above: Performed By: #### E RUR #### [facility] [address] [place] [address] Dr. Nolan Biggs Hemoglobin Ql (U) Negative Normal NEGATIVE [facility] Comment on above: Performed By: #### E RUR #### [facility] [address] [place] [address] Dr. Nolan Biggs Ketones Ql (U) Negative Normal NEGATIVE [facility] Comment on above: Performed By: #### E RUR #### [facility] [address] [place] [address] Dr. Nolan Biggs LEUKOCYTES Negative Normal NEGATIVE [facility] Comment on above: Performed By: #### E RUR #### [facility] [address] [place] [address] Dr. Nolan Biggs Nitrite Ql (U) Negative Normal NEGATIVE [facility] Comment on above: Performed By: #### E RUR #### [facility] [address] [place] [address] Dr. Nolan Biggs pH (U) 5.5 [pH] Normal 5-9 [facility] Comment on above: Performed By: #### E RUR #### [facility] [address] [place] [address] Dr. Nolan Biggs SPEC GRAVITY >=1.030 Abnormal 1.005-<=1.02 5 [facility] Comment on above: Performed By: #### E RUR #### [facility] [address] [place] [address] Dr. Nolan Biggs UA PROTEIN Negative Normal NEGATIVE/ TRACE [facility] Comment on above: Performed By: #### E RUR #### [facility] [address] [place] [address] Dr. Nolan Biggs UR MICRO IND NOT INDICATED Normal [facility] Comment on above: Performed By: #### E RUR #### [facility] [address] [place] [address] Dr. Nolan Biggs Urobilinogen Qn (U) 1.0 {Jan'U}/dL Normal 0.2 - 1. 0 [facility] Comment on above: Performed By: #### E RUR #### [facility] [address] [place] [address] Dr. Nolan Biggs INFLUENZA A AND B AGon 09-13 INFLUENZA A AG Negative Normal NEGATIVE SEE COMMENT [facility] Comment on above: Performed By: #### C BC #### [facility] [address] [place] [address] Dr. Nolan Biggs INFLUENZA B AG Negative Normal NEGATIVE SEE COMMENT [facility] Comment on above: Performed By: #### C BC #### [facility] [address] [place] [address] Dr. Nolan Biggs INTERNAL CONTROLS Within Normal Limits Normal Wi thin Normal Limits [facility] Comment on above: Performed By: #### C BC #### [facility] [address] [place] [address] Dr. Nolan Biggs LACTATE/LACTIC ACIDon 2021 Lactate [Moles/Vol] 0.4 mmol/L Normal 0.4-1.9 [facility] Comment on above: Performed By: #### C BC #### [facility] [address] [place] [address] Dr. Nolan Biggs LIPASEon 09-13-2021 Lipase [Catalytic activity/Vol] 63.0 U/L Critically low 73.0-393.0 [facility] Comment on above: Performed By: #### C MP HSTROPN, LIPA #### [facility] [address] [place] [address] Dr. Nolan Biggs PROF 14(COMP METB)on 022 Albumin [Mass/Vol] 3.5 g/dL Normal 3.4-5.0 [facility] Comment on above: Performed By: #### C MP HSTROPN, LIPA #### [facility] [address] [place], [place] [address] Dr. Nolan Biggs Albumin/Globulin [Mass ratio] 0.8 {ratio} Normal [facility] Comment on above: Performed By: #### C MP, HSTROPN, LIPA #### [facility] [address] [place] [address] Dr. Nolan Biggs ALP [Catalytic activity/Vol] 83 U/L Normal 46-116 [facility] Comment on above: Performed By: #### C MP, HSTROPN, LIPA #### [facility] [address] [place] [address] Dr. Nolan Biggs ALT [Catalytic activity/Vol] 143 U/L Critically high 14-59 [facility] Comment on above: Performed By: #### C MP, HSTROPN, LIPA #### [facility] [address] [place] [address] Dr. Nolan Biggs Anion gap [Moles/Vol] 10.9 mmol/L Normal [facility] Comment on above: Performed By: #### C MP, HSTROPN, LIPA #### [facility] [address] [place] [address] Dr. Nolan Biggs AST [Catalytic activity/Vol] 82 U/L Critically high 15-37 [facility] Comment on above: Performed By: #### C MP, HSTROPN, LIPA #### [facility] [address] [place] [address] Dr. Nolan Biggs Bilirubin [Mass/Vol] 0.6 mg/dL Normal 0.2-1.0 [facility] Comment on above: Performed By: #### C MP, HSTROPN, LIPA #### [facility] [address] [place] [address] Dr. Nolan Biggs Calcium [Mass/Vol] 8.4 mg/dL Critically low 8.5-10.1 [facility] Comment on above: Performed By: #### C MP, HSTROPN, LIPA #### [facility] [address] [place] [address] Dr. Nolan Biggs Chloride [Moles/Vol] 106 mmol/L Normal 98-107 [facility] Comment on above: Performed By: #### C MP, HSTROPN, LIPA #### [facility] [address] [place] [address] Dr. Nolan Biggs CO2 [Moles/Vol] 26.2 mmol/L Normal 21.0-32.0 [facility] Comment on above: Performed By: #### C MP, HSTROPN, LIPA #### [facility] [address] [place] [address] Dr. Nolan Biggs Creatinine [Mass/Vol] 0.82 mg/dL Normal 0.55-1.02 [facility] Comment on above: Performed By: #### C MP, HSTROPN, LIPA #### [facility] [address] [place] [address] Dr. Nolan Biggs EGFR-AF MONGOLIAN >60 Normal >=60 [facility] Comment on above: Performed By: #### C MP, HSTROPN, LIPA #### [facility] [address] [place] [address] Dr. Nolan Biggs EGFR-NON AF MONGOLIAN >60 Normal >=60 [facility] Comment on above: Performed By: #### C MP, HSTROPN, LIPA #### [facility] [address] [place] [address] Dr. Nolan Biggs Globulin (S) [Mass/Vol] 4.2 g/dL Normal [facility] Comment on above: Performed By: #### C MP, HSTROPN, LIPA #### [facility] [address] [place] [address] Dr. Nolan Biggs Glucose [Mass/Vol] 112 mg/dL Critically high 74-106 [facility] Comment on above: Performed By: #### C MP, HSTROPN, LIPA #### [facility] [address] [place] [address] Dr. Nolan Biggs Potassium [Moles/Vol] 4.1 mmol/L Normal 3.5-5.1 [facility] Comment on above: Performed By: #### C MP, HSTROPN, LIPA #### [facility] [address] [place] [address] Dr. Nolan Biggs Protein [Mass/Vol] 7.7 g/dL Normal 6.4-8.2 [facility] Comment on above: Performed By: #### C MP, HSTROPN, LIPA #### [facility] [address] [place] [address] Dr. Nolan Biggs Sodium [Moles/Vol] 139 mmol/L Normal 136-145 [facility] Comment on above: Performed By: #### C MP, HSTROPN, LIPA #### [facility] [address] [place] [address] Dr. Nolan Biggs Urea nitrogen [Mass/Vol] 11.0 mg/dL Normal 7.0-18.0 [facility] Comment on above: Performed By: #### C MP, HSTROPN, LIPA #### [facility] [address] [place] [address] Dr. Nolan Biggs Urea nitrogen/Creatinine [Mass ratio] 13.4 mg/mg Normal [facility] Comment on above: Performed By: #### C MP, HSTROPN, LIPA #### [facility] [address] [place] [address] Dr. Nolan Biggs PROTIMEon 09-13-2021 INR Coag (PPP) [Relative time] 1.00 {INR} Normal [facility] Comment on above: Performed By: #### C BC #### [facility] [address] [place] [address] Dr. Nolan Biggs INR GUIDELINES SEE BELOW Normal [facility] Comment on above: Result Comment: PATRICIA RED INR: 2.0 - 3.0 CONDITIONS NOT LISTED BELOW 2.5 - 3.5 FOR PROSTHETIC HEART VALVE REPLACEMENT 2.5 - 3.5 RECURRENT THROMBOSIS Performed By: #### C BC #### [facility] [address] [place] [address] Dr. Nolan Biggs PT Coag (PPP) [Time] 10.8 s Normal 9.0-11.6 [facility] Comment on above: Performed By: #### C BC #### [facility] [address], [place] [address] Dr. Nolan Biggs PTTon 09-13-2021 aPTT Coag (Bld) [Time] 27.3 s Normal 22.3-36.2 [facility] Comment on above: Performed By: #### C BC #### [facility] [address], [place] [address] Dr. Nolan Biggs TROPONIN, HIGH SENSITIVITYon 09-13-2021 HSTROP <4.0 Normal 4.0-51.3 [facility] Comment on above: Result Comment: CUT- OFF POINTS HAVE BEEN ESTABLISHED BASED ON THE FOURTH UNIVERSAL DEFINITIONS OF MYOCARDIAL INFARCTION. THE UPPER REFERENCE LIMIT (URL) OF TROPONIN, DEFINED THE 99TH PERCENTILE OF cTnI DISTRIBUTION IN A REFERENCE POPULATION, HAS BEEN CONFIRMED THE DECISION THRESHOLD FOR TX DIAGNOSIS. Performed By: #### C BC #### [facility] [address], [place] [address] Dr. Nolan Biggs Vital Signs Date Time Vital Sign Value Performing Clinician Facility 12-13-2023 13:40-0400 Body temperature 98.42 [degF] Jorge Mobicious [facility] 12-13-2023 13:40-0400 Diastolic blood pressure 90 mm[Hg] Jorge Mobicious [facility] 12-13-2023 13:40-0400 Heart rate 91 /min Jorge Mobicious [facility] 12-13-2023 13:40-0400 Respiratory rate 18 /min Jorge Mobicious [facility] 12-13-2023 13:40-0400 SaO2% (BldA) [Mass fraction] 99 % [employer] [facility] 12-13-2023 13:40-0400 Systolic blood pressure 134 mm[Hg] Jorge Mobicious [facility] 12-12-2023 18:58-0400 Body height 160.02 cm Services [facility] Work Phone: [facility] 12-12-2023 18:58-0400 Body temperature 98.2 [degF] Services [facility] Work Phone: [facility] 12-12-2023 18:58-0400 Body weight 115 kg Services [facility] Work Phone: [facility] 12-12-2023 18:58-0400 Diastolic blood pressure 104 mm[Hg] Services [facility] Work Phone: [facility] 12-12-2023 18:58-0400 Heart rate 92 /min Services [facility] Work Phone: [facility] 12-12-2023 18:58-0400 Respiratory rate 18 /min Services [facility] Work Phone: [facility] 12-12-2023 18:58-0400 SaO2% (BldA) [Mass fraction] 99 % Services [facility] Work Phone: [facility] 12-12-2023 18:58-0400 Systolic blood pressure 182 mm[Hg] Services [facility] Work Phone: [facility] 12-04-2023 23:01-0400 Diastolic blood pressure 69 mm[Hg] Ben Urbina MD Work Phone: [facility] 12-04-2023 23:01-0400 Heart rate 77 /min Ben Urbina MD Work Phone: [facility] [employer] 12-04-2023 23:01-0400 Respiratory rate 16 /min Ben Urbina MD Work Phone: [facility] 12-04-2023 23:01-0400 SaO2% (BldA) [Mass fraction] 96 % Ben Urbina MD Work Phone: [facility] 12-04-2023 23:01-0400 Systolic blood pressure 117 mm[Hg] Ben Urbina MD Work Phone: [employer] [employer] 12-04-2023 21:54-0400 Body height 160 cm Ben Urbina MD Work Phone: [facility] 12-04-2023 21:54-0400 Body mass index (BMI) [Ratio] 44.29 kg/m2 Ben Urbina MD Work Phone: [facility] 12-04-2023 21:54-0400 Body temperature 98.2 [degF] Ben Urbina MD Work Phone: [facility] 12-04-2023 21:54-0400 Body weight 113.4 kg Ben Urbina MD Work Phone: [facility] 12-02-2023 01:30-0400 Diastolic blood pressure 105 mm[Hg] Services [facility] [employer] Work Phone: [facility] 12-02-2023 01:30-0400 Heart rate 74 /min Services [facility] Work Phone: [facility] 12-02-2023 01:30-0400 Respiratory rate 18 /min Services [facility] [employer] Work Phone: [facility] 12-02-2023 01:30-0400 SaO2% (BldA) [Mass fraction] 96 % Services [facility] Work Phone: [facility] 12-02-2023 01:30-0400 Systolic blood pressure 133 mm[Hg] Services [facility] Work Phone: [facility] 12-01-2023 19:36-0400 Body height 160.02 cm Services [facility] [employer] Work Phone: [facility] 12-01-2023 19:36-0400 Body temperature 98.2 [degF] Services [facility] Work Phone: [facility] 12-01-2023 19:36-0400 Body weight 115.5 kg Services [facility] Work Phone: [facility] 12-01-2023 11:53-0400 Body temperature 97.88 [degF] [facility] [employer] [facility] 12-01-2023 11:53-0400 Diastolic blood pressure 82 mm[Hg] [facility] 12-01-2023 11:53-0400 Heart rate 72 /min [facility] 12-01-2023 11:53-0400 Respiratory rate 18 /min [facility] 12-01-2023 11:53-0400 SaO2% (BldA) [Mass fraction] 97 % [facility] 12-01-2023 11:53-0400 Systolic blood pressure 124 mm[Hg] [facility] 11-27-2023 19:47-0400 Diastolic blood pressure 98 mm[Hg] [facility] 11-27-2023 19:47-0400 Heart rate 79 /min [facility] 11-27-2023 19:47-0400 Respiratory rate 18 /min [facility] 11-27-2023 19:47-0400 SaO2% (BldA) [Mass fraction] 98 % [facility] 11-27-2023 19:47-0400 Systolic blood pressure 143 mm[Hg] [facility] 11-27-2023 17:51-0400 Body temperature 98.24 [degF] [facility] 11-27-2023 17:51-0400 Diastolic blood pressure 78 mm[Hg] [facility] 11-27-2023 17:51-0400 Heart rate 103 /min [facility] 11-27-2023 17:51-0400 Respiratory rate 15 /min [facility] 11-27-2023 17:51-0400 SaO2% (BldA) [Mass fraction] 97 % [facility] 11-27-2023 17:51-0400 Systolic blood pressure 120 mm[Hg] [facility] 11-26-2023 23:48-0400 Respiratory rate 18 /min [facility] 11-26-2023 21:50-0400 Body height 160.02 cm No PCP [facility] 11-26-2023 21:50-0400 Body mass index (BMI) [Ratio] 44.6 kg/m2 No [facility] 11-26-2023 21:50-0400 Body temperature 97.7 [degF] No PCP [facility] 11-26-2023 21:50-0400 Body weight 114.4 kg No PCP [facility] 11-26-2023 21:50-0400 Diastolic blood pressure 91 mm[Hg] No [facility] 11-26-2023 21:50-0400 Heart rate 67 /min No PCP [facility] 11-26-2023 21:50-0400 SaO2% (BldA) [Mass fraction] 98 % No [facility] 11-26-2023 21:50-0400 Systolic blood pressure 150 mm[Hg] No PCP [facility] 11-25-2023 20:33-0400 Diastolic blood pressure 81 mm[Hg] [facility] Work Phone: [facility] 11-25-2023 20:33-0400 Heart rate 78 /min [facility] Work Phone: [facility] 11-25-2023 20:33-0400 Respiratory rate 18 /min [facility] Work Phone: [facility] 11-25-2023 20:33-0400 SaO2% (BldA) [Mass fraction] 97 % [facility] Work Phone: [facility] 11-25-2023 20:33-0400 Systolic blood pressure 140 mm[Hg] [facility] Work Phone: [facility] 11-25-2023 18:54-0400 Body height 160.02 cm [facility] [employer] [facility] Work Phone: [facility] 11-25-2023 18:54-0400 Body temperature 98.2 [degF] [facility] Work Phone: [facility] 11-25-2023 18:54-0400 Body weight 116.7 kg [facility] Work Phone: [facility] 11-24-2023 13:42-0400 Body temperature 98.06 [degF] [facility] 11-24-2023 13:42-0400 Diastolic blood pressure 90 mm[Hg] [facility] 11-24-2023 13:42-0400 Heart rate 93 /min [facility] 11-24-2023 13:42-0400 Respiratory rate 19 /min [facility] 11-24-2023 13:42-0400 SaO2% (BldA) [Mass fraction] 98 % [facility] 11-24-2023 13:42-0400 Systolic blood pressure 132 mm[Hg] [facility] 11-10-2023 23:39-0400 Diastolic blood pressure 76 mm[Hg] [facility] Work Phone: [facility] 11-10-2023 23:39-0400 Heart rate 97 /min [facility] Work Phone: [facility] 11-10-2023 23:39-0400 Respiratory rate 20 /min [facility] Work Phone: [facility] 11-10-2023 23:39-0400 Systolic blood pressure 158 mm[Hg] [facility] Work Phone: [facility] 11-10-2023 22:44-0400 SaO2% (BldA) [Mass fraction] 95 % [facility] Work Phone: [facility] 11-10-2023 18:38-0400 Body height 160.02 cm [facility] [employer] [facility] Work Phone: [facility] 11-10-2023 18:38-0400 Body temperature 97.9 [degF] [facility] Work Phone: [facility] 11-10-2023 18:38-0400 Body weight 115 kg [facility] Work Phone: [facility] 11-05-2023 19:45-0400 Body temperature 98.06 [degF] Pedro Pablo Chance [facility] 11-05-2023 19:45-0400 Diastolic blood pressure 92 mm[Hg] Pedro Pablo Chance [facility] 11-05-2023 19:45-0400 Heart rate 74 /min Pedro Pablo Chacne [facility] 11-05-2023 19:45-0400 Respiratory rate 18 /min Pedro Pablo Chance [facility] 11-05-2023 19:45-0400 SaO2% (BldA) [Mass fraction] 95 % Pedro Pablo Chance [facility] 11-05-2023 19:45-0400 Systolic blood pressure 151 mm[Hg] Pedro Pablo Chance [facility] 10-31-2023 00:00-0400 Diastolic blood pressure 70 mm[Hg] Aaliyah Mansour I, DO [facility] Phone[facility] 10-31-2023 00:00-0400 Heart rate 69 /min Mansour Mansour I, DO Work Phone[facility] 10-31-2023 00:00-0400 Respiratory rate 19 /min Mansour Mansour I, DO [facility] Phone[facility] 10-31-2023 00:00-0400 SaO2% (BldA) [Mass fraction] 96 % Mansour Mansour I, DO [facility] Phone[facility] 10-31-2023 00:00-0400 Systolic blood pressure 127 mm[Hg] Mansour Mansour I, DO Work Phone: [facility] 10-30-2023 20:06-0400 Body temperature 97.7 [degF] Aaliyah Fischer I, DO Work Phone: [facility] 10-30-2023 18:01-0400 Body height 160 cm Aaliyah Fischer I, DO Work Phone: [facility] 10-30-2023 18:01-0400 Body mass index (BMI) [Ratio] 44.29 kg/m2 Aaliyah Fischer I, DO Work Phone: [facility] 10-30-2023 18:01-0400 Body weight 113.4 kg Aaliyah Fischer I DO Work Phone: [facility] 10-30-2023 12:14-0400 Body temperature 98.24 [degF] [facility] 10-30-2023 12:14-0400 Diastolic blood pressure 96 mm[Hg] [facility] 10-30-2023 12:14-0400 Heart rate 91 /min [facility] 10-30-2023 12:14-0400 Respiratory rate 20 /min [facility] 10-30-2023 12:14-0400 SaO2% (BldA) [Mass fraction] 98 % [facility] 10-30-2023 12:14-0400 Systolic blood pressure 146 mm[Hg] [facility] 10-26-2023 02:43-0400 Body temperature 97.7 [degF] Pedro Pablo Chance [facility] 10-26-2023 02:43-0400 Diastolic blood pressure 92 mm[Hg] Pedro Pablo Chance [facility] 10-26-2023 02:43-0400 Heart rate 82 /min Pedro Pablo Chance [facility] 10-26-2023 02:43-0400 Respiratory rate 16 /min Pedro Pablo Chance [facility] 10-26-2023 02:43-0400 SaO2% (BldA) [Mass fraction] 94 % Pedro Pablo Chance [facility] 10-26-2023 02:43-0400 Systolic blood pressure 143 mm[Hg] Pedro Pablo Chance [facility] 10-19-2023 13:04-0400 Body temperature 98.1 [degF] [facility] Work Phone: [facility] 10-19-2023 13:04-0400 Diastolic blood pressure 79 mm[Hg] [facility] Work Phone: [facility] 10-19-2023 13:04-0400 Heart rate 87 /min [facility] Work Phone: [facility] 10-19-2023 13:04-0400 Respiratory rate 18 /min [facility] Work Phone: [facility] 10-19-2023 13:04-0400 SaO2% (BldA) [Mass fraction] 99 % [facility] Work Phone: [facility] 10-19-2023 13:04-0400 Systolic blood pressure 136 mm[Hg] [facility] Work Phone: [facility] 10-19-2023 11:26-0400 Body height 160.02 cm [facility] Work Phone: [facility] 10-19-2023 11:26-0400 Body weight 113.39 kg [facility] Work Phone: [facility] 10-05-2023 19:56-0400 Diastolic blood pressure 62 mm[Hg] [facility] Work Phone: [facility] 10-05-2023 19:56-0400 Heart rate 87 /min [facility] Work Phone: [facility] 10-05-2023 19:56-0400 Respiratory rate 18 /min [facility] Work Phone: [facility] 10-05-2023 19:56-0400 SaO2% (BldA) [Mass fraction] 98 % [facility] Work Phone: [facility] 10-05-2023 19:56-0400 Systolic blood pressure 134 mm[Hg] [facility] Work Phone: [facility] 10-05-2023 14:36-0400 Body height 163.83 cm [facility] Work Phone: [facility] 10-05-2023 14:36-0400 Body temperature 98 [degF] [facility] Work Phone: [facility] 10-05-2023 14:36-0400 Body weight 115 kg [facility] [employer] Work Phone: [facility] 10-04-2023 14:48-0400 Body temperature 98.06 [degF] Jorge Rodrigueze [facility] 10-04-2023 14:48-0400 Diastolic blood pressure 75 mm[Hg] Jorge Rodrigueze [facility] 10-04-2023 14:48-0400 Heart rate 72 /min Jorge Rodrigueze [facility] 10-04-2023 14:48-0400 Respiratory rate 16 /min Jorge Rodrigueze [facility] 10-04-2023 14:48-0400 SaO2% (BldA) [Mass fraction] 97 % Jorge Rodrigueze [facility] 10-04-2023 14:48-0400 Systolic blood pressure 153 mm[Hg] Jorge Arnaldo [facility] 09-25-2023 11:41-0400 Body temperature 98.24 [degF] Balbina Bryant [facility] 09-25-2023 11:41-0400 Diastolic blood pressure 105 mm[Hg] [facility] 09-25-2023 11:41-0400 Heart rate 105 /min [facility] 09-25-2023 11:41-0400 Respiratory rate 18 /min [facility] 09-25-2023 11:41-0400 SaO2% (BldA) [Mass fraction] 95 % [facility] 09-25-2023 11:41-0400 Systolic blood pressure 173 mm[Hg] [facility] 09-21-2023 11:15-0400 Body temperature 98.24 [degF] Nikhil Tubbs [facility] 09-21-2023 11:15-0400 Diastolic blood pressure 65 mm[Hg] Nikhil Tubbs [facility] 09-21-2023 11:15-0400 Heart rate 100 /min Nikhil Tubbs [facility] 09-21-2023 11:15-0400 Respiratory rate 18 /min Nikhil Tubbs [facility] 09-21-2023 11:15-0400 SaO2% (BldA) [Mass fraction] 98 % Nikhil Tubbs [facility] 09-21-2023 11:15-0400 Systolic blood pressure 121 mm[Hg] Nikhil Tubbs [facility] 09-20-2023 10:55-0400 Body temperature 97.52 [degF] Jorge Mcintosh [facility] 09-20-2023 10:55-0400 Diastolic blood pressure 85 mm[Hg] Jorge Mcintosh [facility] 09-20-2023 10:55-0400 Heart rate 102 /min Jorge Mcintosh [facility] 09-20-2023 10:55-0400 Respiratory rate 97 /min Jorge Mcintosh [facility] 09-20-2023 10:55-0400 SaO2% (BldA) [Mass fraction] 99 % Jorge Mcintosh [facility] 09-20-2023 10:55-0400 Systolic blood pressure 166 mm[Hg] Jorge Mcintosh [facility] 09-17-2023 17:45-0400 Blood Pressure Location Dax Lira [facility] 09-17-2023 17:45-0400 Body temperature 98.6 [degF] Dax Lira [facility] 09-17-2023 17:45-0400 Diastolic blood pressure 88 mm[Hg] Dax Pankaj [facility] 09-17-2023 17:45-0400 Heart rate 92 /min Dax Lira [facility] 09-17-2023 17:45-0400 Respiratory rate 16 /min Dax Lira [facility] 09-17-2023 17:45-0400 SaO2% (BldA) [Mass fraction] 98 % Dax Lira [facility] 09-17-2023 17:45-0400 Systolic blood pressure 130 mm[Hg] Dax Pankaj [facility] 09-10-2023 14:06-0400 Diastolic blood pressure 61 mm[Hg] Benja Radha DO Work Phone: [facility] 09-10-2023 14:06-0400 Systolic blood pressure 140 mm[Hg] Benja Radha DO Work Phone: [employer] 09-10-2023 14:02-0400 Body height 160 cm Benja Lid DO Work Phone: [facility] [employer] 09-10-2023 14:02-0400 Body mass index (BMI) [Ratio] 38.09 kg/m2 Benja Lid DO Work Phone: [facility] [employer] 09-10-2023 14:02-0400 Body temperature 98.29 [degF] Benja Lid DO Work Phone: [facility] [employer] 09-10-2023 14:02-0400 Body weight 97.52 kg Benja Lid DO Work Phone: [facility] [employer] 09-10-2023 14:02-0400 Heart rate 83 /min Benja Lid DO Work Phone: [facility] [employer] 09-10-2023 14:02-0400 Respiratory rate 17 /min Benja Lid DO Work Phone: [facility] [employer] 09-10-2023 14:02-0400 SaO2% (BldA) [Mass fraction] 97 % Benja Lid DO Work Phone: [facility] [employer] 09-09-2023 22:30-0400 Blood Pressure Location Jorge Mcintosh [facility] 09-09-2023 22:30-0400 Diastolic blood pressure 67 mm[Hg] Jorge Mcintosh [facility] 09-09-2023 22:30-0400 Heart rate 71 /min Jorge Mcintosh [facility] 09-09-2023 22:30-0400 Mean blood pressure 87 mm[Hg] Jorge Mcintosh [facility] 09-09-2023 22:30-0400 Respiratory rate 16 /min Jorge Arnaldo [facility] 09-09-2023 22:30-0400 SaO2% (BldA) [Mass fraction] 99 % Jorge Rodrigueze [facility] 09-09-2023 22:30-0400 Systolic blood pressure 126 mm[Hg] Jorge Rodrigueze [facility] 09-09-2023 21:30-0400 Blood Pressure Location Jorge Rodrigueze [facility] 09-09-2023 21:30-0400 Diastolic blood pressure 76 mm[Hg] Jorge Rodrigueze [facility] 09-09-2023 21:30-0400 Heart rate 80 /min Jorge Rodrigueze [facility] 09-09-2023 21:30-0400 Mean blood pressure 96 mm[Hg] Jorge Rodrigueze [facility] 09-09-2023 21:30-0400 Respiratory rate 16 /min Jorge Rodrigueze [facility] 09-09-2023 21:30-0400 SaO2% (BldA) [Mass fraction] 98 % Jorge Rodrigueze [facility] 09-09-2023 21:30-0400 Systolic blood pressure 136 mm[Hg] Jorge Rodrigueze [facility] 09-09-2023 21:00-0400 Diastolic blood pressure 62 mm[Hg] Jorge Arnaldo [facility] 09-09-2023 21:00-0400 Heart rate 79 /min Jorge Rodrigueze [facility] 09-09-2023 21:00-0400 SaO2% (BldA) [Mass fraction] 94 % Jorge Rodrigueze [facility] 09-09-2023 19:12-0400 Heart rate 96 /min Jorge Mcintosh [facility] 09-08-2023 18:37-0400 Body height 162.56 cm [facility] Work Phone: [facility] 09-08-2023 18:37-0400 Body temperature 98.3 [degF] [facility] Work Phone: [facility] 09-08-2023 18:37-0400 Body weight 116.3 kg [facility] [facility] Work Phone: [facility] 09-08-2023 18:37-0400 Diastolic blood pressure 89 mm[Hg] [facility] Work Phone: [facility] 09-08-2023 18:37-0400 Heart rate 97 /min [facility] Work Phone: [facility] 09-08-2023 18:37-0400 Respiratory rate 19 /min [facility] Work Phone: [facility] 09-08-2023 18:37-0400 SaO2% (BldA) [Mass fraction] 99 % [facility] Work Phone: [facility] 09-08-2023 18:37-0400 Systolic blood pressure 162 mm[Hg] [facility] [employer] Work Phone: [facility] 09-06-2023 21:10-0400 Body temperature 97.88 [degF] Pedro Pablo Chance [facility] 09-06-2023 21:10-0400 Diastolic blood pressure 82 mm[Hg] Pedro Pablo Chance [facility] 09-06-2023 21:10-0400 Heart rate 79 /min Pedro Pablo Chance [facility] 09-06-2023 21:10-0400 Respiratory rate 17 /min Pedro Pablo Chance [facility] 09-06-2023 21:10-0400 SaO2% (BldA) [Mass fraction] 98 % Pedro Pablo Chance [facility] 09-06-2023 21:10-0400 Systolic blood pressure 152 mm[Hg] Pedro Pablo Chance [facility] 09-02-2023 18:07-0400 Body temperature 97.88 [degF] Jorge Mcintosh [facility] 09-02-2023 18:07-0400 Diastolic blood pressure 79 mm[Hg] Jorge Mcintosh [facility] 09-02-2023 18:07-0400 Heart rate 94 /min Jorge Mcintosh [facility] 09-02-2023 18:07-0400 Respiratory rate 16 /min Jorge Mcintosh [facility] 09-02-2023 18:07-0400 SaO2% (BldA) [Mass fraction] 96 % Jorge Mcintosh [facility] 09-02-2023 18:07-0400 Systolic blood pressure 136 mm[Hg] Jorge Mcintosh [facility] 08-30-2023 19:17-0400 Diastolic blood pressure 92 mm[Hg] Nikhil Tubbs [facility] 08-30-2023 19:17-0400 Heart rate 94 /min Nikhil Arley [facility] 08-30-2023 19:17-0400 Mean blood pressure 112 mm[Hg] Nikhil Arley [facility] 08-30-2023 19:17-0400 Respiratory rate 17 /min Nikhil Arley [facility] 08-30-2023 19:17-0400 SaO2% (BldA) [Mass fraction] 97 % Nikhil Tubbs [facility] 08-30-2023 19:17-0400 Systolic blood pressure 151 mm[Hg] Nikhil Tubbs [facility] 08-30-2023 18:13-0400 Body temperature 98.24 [degF] Nikhil Tubbs [facility] 08-30-2023 18:13-0400 Diastolic blood pressure 100 mm[Hg] Nikhil Tubbs [facility] 08-30-2023 18:13-0400 Heart rate 92 /min Nikhil Tubbs [facility] 08-30-2023 18:13-0400 Respiratory rate 18 /min Nikhil Tubbs [facility] 08-30-2023 18:13-0400 SaO2% (BldA) [Mass fraction] 100 % Nikhil Tubbs [facility] 08-30-2023 18:13-0400 Systolic blood pressure 165 mm[Hg] Nikhil Tubbs [facility] 08-27-2023 13:20-0400 Body height 160 cm Chirag Reynoso 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 Work Phone: [facility] 08-27-2023 13:20-0400 Body mass index (BMI) [Ratio] 44.29 kg/m2 Chirag Reynoso 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 Work Phone: [facility] 08-27-2023 13:20-0400 Body weight 113.4 kg Chirag Reynoso 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 Work Phone: [facility] 08-27-2023 13:20-0400 Diastolic blood pressure 88 mm[Hg] Chirag Reynoso 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 Work Phone: [facility] 08-27-2023 13:20-0400 Heart rate 88 /min Chirag Reynoso 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 Work Phone: [facility] 08-27-2023 13:20-0400 Respiratory rate 18 /min Chirag Reynoso 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 Work Phone: [facility] 08-27-2023 13:20-0400 Systolic blood pressure 132 mm[Hg] Chirag Reynoso 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 Work Phone: [facility] 08-21-2023 10:06-0400 Body temperature 98.8 [degF] Elke Adams MD Work Phone: [facility] 08-21-2023 10:06-0400 Diastolic blood pressure 62 mm[Hg] Elke Adams MD Work Phone: [facility] 08-21-2023 10:06-0400 Respiratory rate 16 /min Elke Adams MD Work Phone: [facility] 08-21-2023 10:06-0400 SaO2% (BldA) [Mass fraction] 93 % Elke Adams MD Work Phone: [facility] 08-21-2023 10:06-0400 Systolic blood pressure 116 mm[Hg] Elke Adams MD Work Phone: [facility] 08-21-2023 06:30-0400 Body height 160 cm Elke Adams MD Work Phone: [facility] 08-21-2023 06:30-0400 Body mass index (BMI) [Ratio] 44.32 kg/m2 Elke Adams MD Work Phone: [facility] 08-21-2023 06:30-0400 Body weight 113.5 kg Elke Adams MD Work Phone: [facility] 08-21-2023 06:30-0400 Heart rate 87 /min Elke Adams MD Work Phone: [facility] 08-16-2023 00:55-0400 Diastolic blood pressure 90 mm[Hg] [facility] 08-16-2023 00:55-0400 Heart rate 64 /min [facility] 08-16-2023 00:55-0400 Mean blood pressure 111 mm[Hg] [facility] 08-16-2023 00:55-0400 Respiratory rate 15 /min [facility] 08-16-2023 00:55-0400 SaO2% (BldA) [Mass fraction] 93 % [facility] 08-16-2023 00:55-0400 Systolic blood pressure 153 mm[Hg] [facility] 08-16-2023 00:07-0400 Diastolic blood pressure 88 mm[Hg] [facility] 08-16-2023 00:07-0400 Heart rate 73 /min [facility] 08-16-2023 00:07-0400 Mean blood pressure 105 mm[Hg] [facility] 08-16-2023 00:07-0400 Respiratory rate 17 /min [facility] 08-16-2023 00:07-0400 SaO2% (BldA) [Mass fraction] 93 % [facility] 08-16-2023 00:07-0400 Systolic blood pressure 138 mm[Hg] [facility] 08-15-2023 23:42-0400 Diastolic blood pressure 80 mm[Hg] [facility] 08-15-2023 23:42-0400 Heart rate 79 /min [facility] 08-15-2023 23:42-0400 Mean blood pressure 96 mm[Hg] [facility] 08-15-2023 23:42-0400 Respiratory rate 15 /min [facility] 08-15-2023 23:42-0400 SaO2% (BldA) [Mass fraction] 94 % [facility] 08-15-2023 23:42-0400 Systolic blood pressure 129 mm[Hg] [facility] 08-15-2023 22:22-0400 Body temperature 98.06 [degF] [facility] 08-15-2023 22:22-0400 Heart rate 88 /min [facility] 08-14-2023 15:16-0400 Diastolic blood pressure 58 mm[Hg] Domenic Sher [facility] 08-14-2023 15:16-0400 Heart rate 86 /min Domenic Sher [facility] 08-14-2023 15:16-0400 Mean blood pressure 88 mm[Hg] Domenic Sher [facility] 08-14-2023 15:16-0400 Respiratory rate 16 /min Domenic Sher [facility] 08-14-2023 15:16-0400 Systolic blood pressure 148 mm[Hg] Domenic Sher [facility] 08-12-2023 20:51-0400 Body temperature 98.24 [degF] Kaylinn Dokken [facility] 08-12-2023 20:51-0400 Diastolic blood pressure 83 mm[Hg] Kaylinn Dokken [facility] 08-12-2023 20:51-0400 Heart rate 83 /min Kaylinn Dokken [facility] 08-12-2023 20:51-0400 Respiratory rate 18 /min Kaylinn Dokken [facility] 08-12-2023 20:51-0400 SaO2% (BldA) [Mass fraction] 95 % Elisa Sánchez [facility] 08-12-2023 20:51-0400 Systolic blood pressure 146 mm[Hg] Elisa Sánchez [facility] 08-09-2023 23:20-0400 Body temperature 97.7 [degF] Keke Payne MD Work Phone: [facility] 08-09-2023 23:20-0400 Diastolic blood pressure 78 mm[Hg] Keke Payne MD Work Phone: [facility] 08-09-2023 23:20-0400 Heart rate 79 /min Keke Payne MD Work Phone: [facility] 08-09-2023 23:20-0400 Respiratory rate 18 /min Keke Payne MD Work Phone: [facility] 08-09-2023 23:20-0400 SaO2% (BldA) [Mass fraction] 95 % Keke Payne MD Work Phone: [facility] 08-09-2023 23:20-0400 Systolic blood pressure 151 mm[Hg] Keke Payne MD Work Phone: [facility] 08-09-2023 21:46-0400 Body mass index (BMI) [Ratio] 44.29 kg/m2 Keke Payne MD Work Phone: [facility] 08-09-2023 21:46-0400 Body weight 113.4 kg Keke Payne MD Work Phone: [facility] 08-05-2023 20:15-0400 Body temperature 97.88 [degF] Pedro Pablo Chance [facility] 08-05-2023 20:15-0400 Diastolic blood pressure 85 mm[Hg] Pedro Pablo Chance [facility] 08-05-2023 20:15-0400 Heart rate 98 /min Pedro Pablo Chance [facility] 08-05-2023 20:15-0400 Respiratory rate 16 /min Pedro Pablo Chance [facility] 08-05-2023 20:15-0400 SaO2% (BldA) [Mass fraction] 94 % Pedro Pablo Chance [facility] 08-05-2023 20:15-0400 Systolic blood pressure 150 mm[Hg] Pedro Pablo Chance [facility] 08-02-2023 11:52-0400 Body temperature 97.88 [degF] Nikhil Tubbs [facility] 08-02-2023 11:52-0400 Diastolic blood pressure 68 mm[Hg] Nikhil Arley [facility] 08-02-2023 11:52-0400 Heart rate 86 /min Nikhil Tubbs [facility] 08-02-2023 11:52-0400 Respiratory rate 20 /min Nikhil Tubbs [facility] 08-02-2023 11:52-0400 SaO2% (BldA) [Mass fraction] 93 % Nikhil Tubbs [facility] 08-02-2023 11:52-0400 Systolic blood pressure 161 mm[Hg] Nikhil Arley [facility] 07-31-2023 15:29-0400 Diastolic blood pressure 86 mm[Hg] [facility] 07-31-2023 15:29-0400 Heart rate 75 /min [facility] 07-31-2023 15:29-0400 Mean blood pressure 103 mm[Hg] [facility] 07-31-2023 15:29-0400 Respiratory rate 16 /min [facility] 07-31-2023 15:29-0400 SaO2% (BldA) [Mass fraction] 98 % [facility] 07-31-2023 15:29-0400 Systolic blood pressure 138 mm[Hg] [facility] 07-31-2023 14:22-0400 Body temperature 98.06 [degF] [facility] 07-31-2023 14:22-0400 Diastolic blood pressure 87 mm[Hg] [facility] 07-31-2023 14:22-0400 Heart rate 88 /min [facility] 07-31-2023 14:22-0400 Mean blood pressure 101 mm[Hg] [facility] 07-31-2023 14:22-0400 Respiratory rate 18 /min [facility] 07-31-2023 14:22-0400 SaO2% (BldA) [Mass fraction] 96 % [facility] 07-31-2023 14:22-0400 Systolic blood pressure 130 mm[Hg] [facility] 07-26-2023 11:06-0400 Body temperature 98.24 [degF] Jorge Mcintosh [facility] 07-26-2023 11:06-0400 Diastolic blood pressure 66 mm[Hg] Jorge Mcintosh [facility] 07-26-2023 11:06-0400 Heart rate 83 /min Jorge Mcintosh [facility] 07-26-2023 11:06-0400 Respiratory rate 19 /min Jorge Mcintosh [facility] 07-26-2023 11:06-0400 SaO2% (BldA) [Mass fraction] 97 % Jorge Mcintosh [facility] 07-26-2023 11:06-0400 Systolic blood pressure 119 mm[Hg] Jorge Mcintosh [facility] 07-17-2023 09:43-0400 Diastolic blood pressure 90 mm[Hg] Cheyanne Rosas [facility] 07-17-2023 09:43-0400 Mean blood pressure 107 mm[Hg] Cheyanne Rosas [facility] 07-17-2023 09:43-0400 Systolic blood pressure 140 mm[Hg] Cheyanne Rosas [facility] 07-17-2023 07:48-0400 Blood Pressure Location Cheyanne Rosas [facility] 07-17-2023 07:48-0400 Body temperature 97.7 [degF] Cheyanne Rosas [facility] 07-17-2023 07:48-0400 Diastolic blood pressure 78 mm[Hg] Cheyanne Rosas [facility] 07-17-2023 07:48-0400 Heart rate 91 /min Cheyanne Rosas [facility] 07-17-2023 07:48-0400 Respiratory rate 18 /min Cheyanne Rosas [facility] 07-17-2023 07:48-0400 SaO2% (BldA) [Mass fraction] 97 % Cheyanne Rosas [facility] 07-17-2023 07:48-0400 Systolic blood pressure 144 mm[Hg] Cheyanne Rosas [facility] 07-15-2023 13:42-0400 Diastolic blood pressure 86 mm[Hg] Dory Shepherd [facility] 07-15-2023 13:42-0400 Heart rate 76 /min Dory Shepherd [facility] 07-15-2023 13:42-0400 Mean blood pressure 103 mm[Hg] Dory Shepherd [facility] 07-15-2023 13:42-0400 Respiratory rate 15 /min Dory Shepherd [facility] 07-15-2023 13:42-0400 Systolic blood pressure 138 mm[Hg] Dory Shepherd [facility] 07-14-2023 11:37-0400 Body temperature 97.52 [degF] Nikhil Tubbs [facility] 07-14-2023 11:37-0400 Diastolic blood pressure 80 mm[Hg] Nikhil Tubbs [facility] 07-14-2023 11:37-0400 Heart rate 98 /min Nikhil Tubbs [facility] 07-14-2023 11:37-0400 Respiratory rate 18 /min Nikhil Tubbs [facility] 07-14-2023 11:37-0400 SaO2% (BldA) [Mass fraction] 99 % Nikhil Tubbs [facility] 07-14-2023 11:37-0400 Systolic blood pressure 124 mm[Hg] Nikhil Tubbs [facility] 07-11-2023 09:23-0400 Body temperature 98.24 [degF] [facility] 07-11-2023 09:23-0400 Diastolic blood pressure 82 mm[Hg] [facility] 07-11-2023 09:23-0400 Heart rate 92 /min [facility] 07-11-2023 09:23-0400 Respiratory rate 18 /min [facility] 07-11-2023 09:23-0400 SaO2% (BldA) [Mass fraction] 99 % [facility] 07-11-2023 09:23-0400 Systolic blood pressure 151 mm[Hg] [facility] 07-06-2023 18:22-0400 Body temperature 97.88 [degF] [facility] 07-06-2023 18:22-0400 Diastolic blood pressure 99 mm[Hg] [facility] 07-06-2023 18:22-0400 Heart rate 90 /min [facility] 07-06-2023 18:22-0400 Respiratory rate 18 /min [facility] 07-06-2023 18:22-0400 SaO2% (BldA) [Mass fraction] 97 % [facility] 07-06-2023 18:22-0400 Systolic blood pressure 159 mm[Hg] [facility] 07-04-2023 10:35-0400 Body height 160.02 cm [facility] Work Phone: [facility] 07-04-2023 10:35-0400 Body weight 117.5 kg [facility] Work Phone: [facility] 07-04-2023 10:34-0400 Body temperature 97.5 [degF] [facility] Work Phone: [facility] 07-04-2023 10:34-0400 Diastolic blood pressure 78 mm[Hg] [facility] Work Phone: [facility] 07-04-2023 10:34-0400 Heart rate 98 /min [facility] Work Phone: [facility] 07-04-2023 10:34-0400 Respiratory rate 22 /min [facility] Work Phone: [facility] 07-04-2023 10:34-0400 SaO2% (BldA) [Mass fraction] 98 % [facility] Work Phone: [facility] 07-04-2023 10:34-0400 Systolic blood pressure 173 mm[Hg] [facility] Work Phone: [facility] 06-29-2023 13:37-0400 Body temperature 98.24 [degF] Nikhil Arley [facility] 06-29-2023 13:37-0400 Diastolic blood pressure 89 mm[Hg] Nikhil Tubbs [facility] 06-29-2023 13:37-0400 Heart rate 84 /min Nikhiljaiden Tubbs [facility] 06-29-2023 13:37-0400 Respiratory rate 16 /min Nikhil Tubbs [facility] 06-29-2023 13:37-0400 SaO2% (BldA) [Mass fraction] 97 % Nikhil Tubbs [facility] 06-29-2023 13:37-0400 Systolic blood pressure 153 mm[Hg] Nikhil Tubbs [facility] 06-27-2023 11:52-0400 Body temperature 97.7 [degF] Nikhil Tubbs [facility] 06-27-2023 11:52-0400 Diastolic blood pressure 82 mm[Hg] Nikhil Tubbs [facility] 06-27-2023 11:52-0400 Heart rate 87 /min Nikhil Arley [facility] 06-27-2023 11:52-0400 Respiratory rate 18 /min Nikhil Tubbs [facility] 06-27-2023 11:52-0400 SaO2% (BldA) [Mass fraction] 96 % Nikhil Tubbs [facility] 06-27-2023 11:52-0400 Systolic blood pressure 146 mm[Hg] Nikhil Tubbs [facility] 06-26-2023 16:39-0400 Body height 160.02 cm [employer] Joshua Mariaelena Work Phone: [facility] 06-26-2023 16:39-0400 Body temperature 97.6 [degF] OTHER [employer] WORK[employer] Joshua Mariaelena Work Phone: [facility] 06-26-2023 16:39-0400 Body weight 117 kg OTHER [employer] Joshua Mariaelena Work Phone: [facility] 06-26-2023 16:39-0400 Diastolic blood pressure 72 mm[Hg] OTHER [employer] WORKER Joshua Mariaelena Work Phone: [facility] 06-26-2023 16:39-0400 Heart rate 92 /min OTHER [employer] WORKER Joshua Mariaelena Work Phone: [facility] 06-26-2023 16:39-0400 Respiratory rate 21 /min OTHER [employer] WORKER Joshua Mariaelena Work Phone: [facility] 06-26-2023 16:39-0400 SaO2% (BldA) [Mass fraction] 97 % OTHER [employer] WORK[employer] Joshua Mariaelena Work Phone: [facility] 06-26-2023 16:39-0400 Systolic blood pressure 139 mm[Hg] OTHER [employer] WORKER Joshua Mariaelena Work Phone: [facility] 06-24-2023 11:30-0400 Diastolic blood pressure 78 mm[Hg] [facility] 06-24-2023 11:30-0400 Heart rate 78 /min [facility] 06-24-2023 11:30-0400 Mean blood pressure 87 mm[Hg] [facility] 06-24-2023 11:30-0400 Respiratory rate 18 /min [facility] 06-24-2023 11:30-0400 SaO2% (BldA) [Mass fraction] 97 % [facility] 06-24-2023 11:30-0400 Systolic blood pressure 106 mm[Hg] [facility] 06-24-2023 10:30-0400 Diastolic blood pressure 75 mm[Hg] [facility] 06-24-2023 10:30-0400 Heart rate 80 /min [facility] 06-24-2023 10:30-0400 Mean blood pressure 98 mm[Hg] [facility] 06-24-2023 10:30-0400 Respiratory rate 18 /min [facility] 06-24-2023 10:30-0400 SaO2% (BldA) [Mass fraction] 97 % [facility] 06-24-2023 10:30-0400 Systolic blood pressure 143 mm[Hg] [facility] 06-24-2023 09:45-0400 Body temperature 97.7 [degF] [facility] 06-24-2023 09:45-0400 Diastolic blood pressure 84 mm[Hg] [facility] 06-24-2023 09:45-0400 Heart rate 103 /min [facility] 06-24-2023 09:45-0400 Respiratory rate 17 /min [facility] 06-24-2023 09:45-0400 SaO2% (BldA) [Mass fraction] 97 % [facility] 06-24-2023 09:45-0400 Systolic blood pressure 137 mm[Hg] [facility] 06-22-2023 19:05-0400 Diastolic blood pressure 95 mm[Hg] Nikhil Tubbs [facility] 06-22-2023 19:05-0400 Heart rate 94 /min Nikhil Arley [facility] 06-22-2023 19:05-0400 Mean blood pressure 108 mm[Hg] Nikhil Arley [facility] 06-22-2023 19:05-0400 SaO2% (BldA) [Mass fraction] 94 % Nikhil Arley [facility] 06-22-2023 19:05-0400 Systolic blood pressure 135 mm[Hg] Nikhil Arley [facility] 06-22-2023 18:02-0400 Diastolic blood pressure 76 mm[Hg] Nikhil Arley [facility] 06-22-2023 18:02-0400 Heart rate 95 /min Nikhil Arley [facility] 06-22-2023 18:02-0400 Mean blood pressure 93 mm[Hg] Nikhil Arley [facility] 06-22-2023 18:02-0400 Systolic blood pressure 126 mm[Hg] Nikhil Arley [facility] 06-22-2023 17:00-0400 Blood Pressure Location Nikhil Arley [facility] 06-22-2023 17:00-0400 Diastolic blood pressure 80 mm[Hg] Nikhil Arley [facility] 06-22-2023 17:00-0400 Heart rate 93 /min Nikhil Arley [facility] 06-22-2023 17:00-0400 Mean blood pressure 97 mm[Hg] Nikhil Arley [facility] 06-22-2023 17:00-0400 Respiratory rate 18 /min Nikhil Arley [facility] 06-22-2023 17:00-0400 SaO2% (BldA) [Mass fraction] 96 % Nikhil Tubbs [facility] 06-22-2023 17:00-0400 Systolic blood pressure 130 mm[Hg] Nikhil Tubbs [facility] 06-22-2023 16:00-0400 SaO2% (BldA) [Mass fraction] 98 % Nikhil Tubbs [facility] 06-22-2023 15:20-0400 Respiratory rate 17 /min Nikhil Tubbs [facility] 06-22-2023 14:21-0400 Body temperature 98.24 [degF] Nikhil Tubbs [facility] 06-22-2023 14:21-0400 Heart rate 109 /min Nkihil Tubbs [facility] 06-22-2023 14:21-0400 Respiratory rate 16 /min Nikhil Tubbs [facility] 06-15-2023 18:05-0400 Body temperature 97.7 [degF] [facility] 06-15-2023 18:05-0400 Diastolic blood pressure 99 mm[Hg] [facility] 06-15-2023 18:05-0400 Heart rate 79 /min [facility] 06-15-2023 18:05-0400 Respiratory rate 18 /min [facility] 06-15-2023 18:05-0400 SaO2% (BldA) [Mass fraction] 99 % [facility] 06-15-2023 18:05-0400 Systolic blood pressure 125 mm[Hg] [facility] 06-15-2023 16:03-0400 Diastolic blood pressure 80 mm[Hg] Slime Oberhauser DO Work Phone: [facility] 06-15-2023 16:03-0400 Heart rate 84 /min Slime Oberhauser DO Work Phone: [facility] 06-15-2023 16:03-0400 Respiratory rate 16 /min Slime Oberhauser DO Work Phone: [facility] 06-15-2023 16:03-0400 SaO2% (BldA) [Mass fraction] 98 % Slime Oberhauser DO Work Phone: [facility] 06-15-2023 16:03-0400 Systolic blood pressure 128 mm[Hg] Slime Oberhauser DO Work Phone: [facility] 06-15-2023 14:37-0400 Body height 160 cm Slime Oberhauser DO Work Phone: [facility] 06-15-2023 14:37-0400 Body mass index (BMI) [Ratio] 44.29 kg/m2 Slime Oberhauser DO Work Phone: [facility] 06-15-2023 14:37-0400 Body temperature 97 [degF] Slime Oberhauser DO Work Phone: [facility] 06-15-2023 14:37-0400 Body weight 113.4 kg Slime Oberhauser DO Work Phone: [facility] 06-11-2023 18:54-0400 Body temperature 98.24 [degF] Kaylinn Dokken [facility] 06-11-2023 18:54-0400 Diastolic blood pressure 80 mm[Hg] Kaylinn Dokken [facility] 06-11-2023 18:54-0400 Heart rate 92 /min Kaylinn Dokken [facility] 06-11-2023 18:54-0400 Respiratory rate 16 /min Elisa Sánchez [facility] 06-11-2023 18:54-0400 SaO2% (BldA) [Mass fraction] 98 % Elisa Sánchez [facility] 06-11-2023 18:54-0400 Systolic blood pressure 135 mm[Hg] Elisa Sánchez [facility] 06-08-2023 18:35-0400 Diastolic blood pressure 86 mm[Hg] Allyson Nicole DO Work Phone: [facility] [employer] 06-08-2023 18:35-0400 Heart rate 86 /min Allyson Nicole DO Work Phone: [facility] [employer] 06-08-2023 18:35-0400 Respiratory rate 16 /min Allyson Nicole DO Work Phone: [facility] [employer] 06-08-2023 18:35-0400 SaO2% (BldA) [Mass fraction] 98 % Allyson Nicole DO Work Phone: [employer] 06-08-2023 18:35-0400 Systolic blood pressure 135 mm[Hg] Allyson Nicole DO Work Phone: [employer] 06-08-2023 17:41-0400 Body height 160 cm Allyson Nicole DO Work Phone: [employer] 06-08-2023 17:41-0400 Body mass index (BMI) [Ratio] 44.29 kg/m2 Allyson Nicole DO Work Phone: [employer] 06-08-2023 17:41-0400 Body temperature 97.81 [degF] Allyson Nicole DO Work Phone: [employer] 06-08-2023 17:41-0400 Body weight 113.4 kg Allyson Nicole DO Work Phone: [facility] [employer] 06-05-2023 08:13-0400 Body height 160 cm Elke Adams MD Work Phone: [facility] 06-05-2023 08:13-0400 Body mass index (BMI) [Ratio] 44.29 kg/m2 Elke Adams MD Work Phone: [facility] 06-05-2023 08:13-0400 Body weight 113.4 kg Elke Adams MD Work Phone: [facility] 06-05-2023 08:13-0400 Diastolic blood pressure 88 mm[Hg] Elke Adams MD Work Phone: [facility] 06-05-2023 08:13-0400 Heart rate 85 /min Elke Adams MD Work Phone: [facility] 06-05-2023 08:13-0400 Respiratory rate 20 /min Elke Adams MD Work Phone: [facility] 06-05-2023 08:13-0400 Systolic blood pressure 133 mm[Hg] Elke Adams MD Work Phone: [facility] 06-03-2023 19:07-0400 Body temperature 98.06 [degF] Jorge Mcintosh [facility] 06-03-2023 19:07-0400 Diastolic blood pressure 88 mm[Hg] Jorge Mcintosh [facility] 06-03-2023 19:07-0400 Heart rate 71 /min Jorge Mcintosh [facility] 06-03-2023 19:07-0400 Respiratory rate 16 /min Jorge Mcintosh [facility] 06-03-2023 19:07-0400 SaO2% (BldA) [Mass fraction] 96 % Jorge Mcintosh [facility] 06-03-2023 19:07-0400 Systolic blood pressure 132 mm[Hg] Jorge Mcintosh [facility] 06-01-2023 16:07-0500 Diastolic blood pressure 81 mm[Hg] OTHER [employer] WORKER Joshua Mariaelena Work Phone: [facility] 06-01-2023 16:07-0500 Heart rate 76 /min OTHER [employer] WORKER Joshua Mariaelena Work Phone: [facility] 06-01-2023 16:07-0500 Respiratory rate 18 /min OTHER SAL[employer] WORKER Joshua Ferrell Work Phone: [facility] 06-01-2023 16:07-0500 SaO2% (BldA) [Mass fraction] 96 % OTHER [employer] WORKER Joshua Ferrell Work Phone: [facility] 06-01-2023 16:07-0500 Systolic blood pressure 141 mm[Hg] OTHER [employer] WORKER Joshua Ferrell Work Phone: [facility] 06-01-2023 11:49-0500 Body height 160.02 cm OTHER SALES [employer] WORKER Joshua Ferrell Work Phone: [facility] 06-01-2023 11:49-0500 Body temperature 97.9 [degF] OTHER SALES SUPPORT WORKERRadha Ferrell Work Phone: [facility] 06-01-2023 11:49-0500 Body weight 97.52 kg OTHER SALES SUPPORT WORKERRadha Ferrell Work Phone: [facility] 05-31-2023 18:12-0500 Diastolic blood pressure 104 mm[Hg] Jorge Mcintosh [facility] 05-31-2023 18:12-0500 Heart rate 71 /min Jorge Mcintosh [facility] 05-31-2023 18:12-0500 Mean blood pressure 117 mm[Hg] Jorge Arnaldo [facility] 05-31-2023 18:12-0500 Respiratory rate 18 /min Jorge Mcintosh [facility] 05-31-2023 18:12-0500 SaO2% (BldA) [Mass fraction] 97 % Jorge Arnaldo [facility] 05-31-2023 18:12-0500 Systolic blood pressure 143 mm[Hg] Jorge Arnaldo [facility] 05-31-2023 17:01-0500 Diastolic blood pressure 70 mm[Hg] Jorge Arnaldo [facility] 05-31-2023 17:01-0500 Heart rate 85 /min Jorge Arnaldo [facility] 05-31-2023 17:01-0500 Mean blood pressure 91 mm[Hg] Jorge Arnaldo [facility] 05-31-2023 17:01-0500 Respiratory rate 18 /min Jorge Rodrigueze [facility] 05-31-2023 17:01-0500 SaO2% (BldA) [Mass fraction] 96 % Jorge Arnaldo [facility] 05-31-2023 17:01-0500 Systolic blood pressure 133 mm[Hg] Jorge Arnaldo [facility] 05-31-2023 16:41-0500 Body temperature 98.6 [degF] Jorge Arnaldo [facility] 05-31-2023 16:41-0500 Diastolic blood pressure 91 mm[Hg] Jorge Arnaldo [facility] 05-31-2023 16:41-0500 Heart rate 88 /min Jorge Arnaldo [facility] 05-31-2023 16:41-0500 Respiratory rate 18 /min Jorge Arnaldo [facility] 05-31-2023 16:41-0500 SaO2% (BldA) [Mass fraction] 96 % Jorge Arnaldo [facility] 05-31-2023 16:41-0500 Systolic blood pressure 155 mm[Hg] Jorge Mcintosh [facility] 05-26-2023 19:35-0500 Body temperature 97.7 [degF] Pedro Pablo Chance [facility] 05-26-2023 19:35-0500 Diastolic blood pressure 81 mm[Hg] Pedro Pablo Chance [facility] 05-26-2023 19:35-0500 Heart rate 94 /min Pedro Pablo Chance [facility] 05-26-2023 19:35-0500 Respiratory rate 16 /min Pedro Pablo Chance [facility] 05-26-2023 19:35-0500 SaO2% (BldA) [Mass fraction] 98 % Pedro Pablo Chance [facility] 05-26-2023 19:35-0500 Systolic blood pressure 147 mm[Hg] Pedro Pablo Chance [facility] 05-25-2023 14:00-0500 Body height 160.02 cm OTHER SALES [employer] WORKER Joshua Mariaelena Work Phone: [facility] 05-25-2023 14:00-0500 Body temperature 97.7 [degF] OTHER [employer] WORKER Joshua Mariaelena Work Phone: [facility] 05-25-2023 14:00-0500 Body weight 116 kg OTHER [employer] SU[employer] WORKER Joshua Mariaelena Work Phone: [facility] 05-25-2023 14:00-0500 Diastolic blood pressure 86 mm[Hg] OTHER SAL[employer] SU[employer] WORKER Joshua Mariaelena Work Phone: [facility] 05-25-2023 14:00-0500 Heart rate 89 /min OTHER [employer] SU[employer] WORKER Joshua Mariaelena Work Phone: [facility] 05-25-2023 14:00-0500 Respiratory rate 16 /min ELIZABETH Ferrell Work Phone: [facility] 05-25-2023 14:00-0500 SaO2% (BldA) [Mass fraction] 96 % ELIZABETH Ferrell Work Phone: [facility] 05-25-2023 14:00-0500 Systolic blood pressure 134 mm[Hg] ELIZABETH Ferrell Work Phone: [facility] 05-24-2023 19:20-0500 Body temperature 97.7 [degF] Nikhil Tubbs [facility] 05-24-2023 19:20-0500 Diastolic blood pressure 95 mm[Hg] Nikhil Tubbs [facility] 05-24-2023 19:20-0500 Heart rate 98 /min Nikhil Tubbs [facility] 05-24-2023 19:20-0500 Respiratory rate 16 /min Nikhiljaiden Tubbs [facility] 05-24-2023 19:20-0500 SaO2% (BldA) [Mass fraction] 96 % Nikhil Tubbs [facility] 05-24-2023 19:20-0500 Systolic blood pressure 151 mm[Hg] Nikhil Tubbs [facility] 05-19-2023 12:01-0500 Body height 160.02 cm PHYSICIAN NO [facility] 05-19-2023 12:01-0500 Body temperature 98.1 [degF] PHYSICIAN NO [facility] 05-19-2023 12:01-0500 Body weight 115 kg PHYSICIAN NO [facility] 05-19-2023 12:01-0500 Diastolic blood pressure 80 mm[Hg] PHYSICIAN NO [facility] 05-19-2023 12:01-0500 Heart rate 97 /min PHYSICIAN NO [facility] 05-19-2023 12:01-0500 Respiratory rate 18 /min PHYSICIAN NO [facility] 05-19-2023 12:01-0500 SaO2% (BldA) [Mass fraction] 98 % PHYSICIAN NO [facility] 05-19-2023 12:01-0500 Systolic blood pressure 165 mm[Hg] PHYSICIAN NO [facility] 05-16-2023 16:20-0500 Body temperature 98.06 [degF] Nikhil Tubbs [facility] 05-16-2023 16:20-0500 Diastolic blood pressure 93 mm[Hg] Nikhil Tubbs [facility] 05-16-2023 16:20-0500 Heart rate 86 /min Nikhil Tubbs [facility] 05-16-2023 16:20-0500 Respiratory rate 16 /min Nikhil Tubbs [facility] 05-16-2023 16:20-0500 SaO2% (BldA) [Mass fraction] 100 % Nikhil Tubbs [facility] 05-16-2023 16:20-0500 Systolic blood pressure 162 mm[Hg] Nikhil Tubbs [facility] 05-14-2023 10:24-0500 Body temperature 97.52 [degF] Jorge Mcintosh [facility] 05-14-2023 10:24-0500 Diastolic blood pressure 86 mm[Hg] Jorge Mcintosh [facility] 05-14-2023 10:24-0500 Heart rate 85 /min Jorge Mcintosh [facility] 05-14-2023 10:24-0500 Respiratory rate 18 /min Jorge Mcintosh [facility] 05-14-2023 10:24-0500 SaO2% (BldA) [Mass fraction] 96 % Jorge Mcintosh [facility] 05-14-2023 10:24-0500 Systolic blood pressure 143 mm[Hg] Jorge Mcintosh [facility] 05-12-2023 10:19-0500 Body temperature 97.88 [degF] Nikhil Tubbs [facility] 05-12-2023 10:19-0500 Diastolic blood pressure 107 mm[Hg] Nikhil Tubbs [facility] 05-12-2023 10:19-0500 Heart rate 82 /min Nikhil Tubbs [facility] 05-12-2023 10:19-0500 Respiratory rate 18 /min Nikhil Tubbs [facility] 05-12-2023 10:19-0500 SaO2% (BldA) [Mass fraction] 96 % Nikhil Tubbs [facility] 05-12-2023 10:19-0500 Systolic blood pressure 156 mm[Hg] Nikhil Tubbs [facility] 05-11-2023 16:23-0500 Body temperature 97.88 [degF] Jorge Mcintosh [facility] 05-11-2023 16:23-0500 Diastolic blood pressure 102 mm[Hg] Jorge Mcintosh [facility] 05-11-2023 16:23-0500 Heart rate 89 /min Jorge Mcintosh [facility] 05-11-2023 16:23-0500 Respiratory rate 16 /min Jorge Mcintosh [facility] 05-11-2023 16:23-0500 SaO2% (BldA) [Mass fraction] 97 % Jorge Mcintosh [facility] 05-11-2023 16:23-0500 Systolic blood pressure 163 mm[Hg] Jorge Mcintosh [facility] 05-08-2023 12:41-0500 Diastolic blood pressure 62 mm[Hg] [facility] 05-08-2023 12:41-0500 Heart rate 78 /min [facility] 05-08-2023 12:41-0500 Mean blood pressure 80 mm[Hg] [facility] 05-08-2023 12:41-0500 Respiratory rate 16 /min [facility] 05-08-2023 12:41-0500 SaO2% (BldA) [Mass fraction] 95 % [facility] 05-08-2023 12:41-0500 Systolic blood pressure 115 mm[Hg] [facility] 05-08-2023 12:00-0500 Diastolic blood pressure 74 mm[Hg] [facility] 05-08-2023 12:00-0500 Mean blood pressure 95 mm[Hg] [facility] 05-08-2023 12:00-0500 SaO2% (BldA) [Mass fraction] 96 % [facility] 05-08-2023 12:00-0500 Systolic blood pressure 138 mm[Hg] [facility] 05-08-2023 11:27-0500 Body temperature 98.06 [degF] [facility] 05-08-2023 11:27-0500 Diastolic blood pressure 93 mm[Hg] [facility] 05-08-2023 11:27-0500 Heart rate 97 /min [facility] 05-08-2023 11:27-0500 Respiratory rate 18 /min [facility] 05-08-2023 11:27-0500 SaO2% (BldA) [Mass fraction] 95 % [facility] 05-08-2023 11:27-0500 Systolic blood pressure 166 mm[Hg] [facility] 05-05-2023 11:58-0500 Body height 160.02 cm PHYSICIAN NO [facility] 05-05-2023 11:58-0500 Body temperature 97.4 [degF] PHYSICIAN NO [facility] 05-05-2023 11:58-0500 Body weight 115.3 kg PHYSICIAN NO [facility] 05-05-2023 11:58-0500 Diastolic blood pressure 89 mm[Hg] PHYSICIAN NO [facility] 05-05-2023 11:58-0500 Heart rate 91 /min PHYSICIAN NO [facility] 05-05-2023 11:58-0500 Respiratory rate 20 /min PHYSICIAN NO [facility] 05-05-2023 11:58-0500 SaO2% (BldA) [Mass fraction] 98 % PHYSICIAN NO [facility] 05-05-2023 11:58-0500 Systolic blood pressure 152 mm[Hg] PHYSICIAN NO [facility] 04-28-2023 00:38-0500 Diastolic blood pressure 89 mm[Hg] Sal Juarez MD Work Phone: [facility] 04-28-2023 00:38-0500 Heart rate 76 /min Sal Juarez MD Work Phone: [facility] 04-28-2023 00:38-0500 Respiratory rate 16 /min Sal Juarez MD Work Phone: [facility] 04-28-2023 00:38-0500 SaO2% (BldA) [Mass fraction] 99 % Sal Juarez MD Work Phone: [facility] 04-28-2023 00:38-0500 Systolic blood pressure 160 mm[Hg] Sal Juarez MD Work Phone: [facility] 04-27-2023 22:40-0500 Body temperature 97.81 [degF] Sal Juarez MD Work Phone: [facility] 04-26-2023 09:29-0500 Body temperature 97.52 [degF] [facility] 04-26-2023 09:29-0500 Diastolic blood pressure 80 mm[Hg] [facility] 04-26-2023 09:29-0500 Heart rate 87 /min [facility] 04-26-2023 09:29-0500 Respiratory rate 20 /min [facility] 04-26-2023 09:29-0500 SaO2% (BldA) [Mass fraction] 96 % [facility] 04-26-2023 09:29-0500 Systolic blood pressure 166 mm[Hg] [facility] 04-22-2023 20:11-0500 Body temperature 98.06 [degF] Pedro Pablo Chance [facility] 04-22-2023 20:11-0500 Diastolic blood pressure 82 mm[Hg] Pedro Pablo Chance [facility] 04-22-2023 20:11-0500 Heart rate 93 /min Pedro Pablo Chance [facility] 04-22-2023 20:11-0500 Respiratory rate 18 /min Pedro Pablo Chance [facility] 04-22-2023 20:11-0500 SaO2% (BldA) [Mass fraction] 96 % Pedro Pablo Chance [facility] 04-22-2023 20:11-0500 Systolic blood pressure 166 mm[Hg] Pedro Pablo Chance [facility] 04-12-2023 14:11-0500 Body height 160.02 cm [facility] 04-12-2023 14:11-0500 Body temperature 97.9 [degF] [facility] 04-12-2023 14:11-0500 Body weight 114.5 kg [facility] 04-12-2023 14:11-0500 Diastolic blood pressure 98 mm[Hg] [facility] 04-12-2023 14:11-0500 Heart rate 99 /min [facility] 04-12-2023 14:11-0500 Respiratory rate 18 /min [facility] 04-12-2023 14:11-0500 SaO2% (BldA) [Mass fraction] 98 % [facility] 04-12-2023 14:11-0500 Systolic blood pressure 193 mm[Hg] [facility] 04-11-2023 18:31-0500 Body temperature 97.34 [degF] [facility] 04-11-2023 18:31-0500 Diastolic blood pressure 105 mm[Hg] [facility] 04-11-2023 18:31-0500 Heart rate 87 /min [facility] 04-11-2023 18:31-0500 Respiratory rate 20 /min [facility] 04-11-2023 18:31-0500 SaO2% (BldA) [Mass fraction] 96 % [facility] 04-11-2023 18:31-0500 Systolic blood pressure 160 mm[Hg] [facility] 04-11-2023 01:00-0500 Hourly Rounding Pedro Pablo Chance [facility] 04-11-2023 01:00-0500 Promise to Return Pedro Pablo Chance [facility] 04-11-2023 00:00-0500 Hourly Rounding Pedro Pablo Chance [facility] 04-11-2023 00:00-0500 Promise to Return Pedro Pablo Chance [facility] 04-10-2023 23:00-0500 Hourly Rounding Pedro Pablo Chance [facility] 04-10-2023 23:00-0500 Promise to Return Pedro Pablo Chance [facility] 04-10-2023 22:05-0500 Body temperature 97.34 [degF] Pedro Pablo Chance [facility] 04-10-2023 22:05-0500 Diastolic blood pressure 95 mm[Hg] Pedro Pablo Chance [facility] 04-10-2023 22:05-0500 Heart rate 80 /min [place] Chance [facility] 04-10-2023 22:05-0500 Respiratory rate 16 /min Pedro Pablo Chance [facility] 04-10-2023 22:05-0500 SaO2% (BldA) [Mass fraction] 95 % Pedro Pablo Chance [facility] 04-10-2023 22:05-0500 Systolic blood pressure 156 mm[Hg] Pedro Pablo Chance [facility] 04-05-2023 15:30-0500 Diastolic blood pressure 82 mm[Hg] Nikhil Arley [facility] 04-05-2023 15:30-0500 Heart rate 76 /min Nikhil Arley [facility] 04-05-2023 15:30-0500 Mean blood pressure 100 mm[Hg] Nikhil Arley [facility] 04-05-2023 15:30-0500 Respiratory rate 17 /min Nikhil Arley [facility] 04-05-2023 15:30-0500 SaO2% (BldA) [Mass fraction] 97 % Nikhil Arley [facility] 04-05-2023 15:30-0500 Systolic blood pressure 137 mm[Hg] Nikhil Arley [facility] 04-05-2023 15:00-0500 Diastolic blood pressure 85 mm[Hg] Nikhil Arley [facility] 04-05-2023 15:00-0500 Heart rate 84 /min Nikhil Arley [facility] 04-05-2023 15:00-0500 Mean blood pressure 108 mm[Hg] Nikhil Arley [facility] 04-05-2023 15:00-0500 Systolic blood pressure 153 mm[Hg] Nikhil Arley [facility] 04-05-2023 14:30-0500 Diastolic blood pressure 66 mm[Hg] Nikhil Arley [facility] 04-05-2023 14:30-0500 Heart rate 81 /min Nikhil Arley [facility] 04-05-2023 14:30-0500 Mean blood pressure 88 mm[Hg] Nikhil Arley [facility] 04-05-2023 14:30-0500 Respiratory rate 18 /min Nikhil Arley [facility] 04-05-2023 14:30-0500 SaO2% (BldA) [Mass fraction] 96 % Nikhil Arley [facility] 04-05-2023 14:30-0500 Systolic blood pressure 131 mm[Hg] Nikhil Arley [facility] 04-05-2023 12:34-0500 Body temperature 98.06 [degF] Nikhil Arley [facility] 04-05-2023 12:34-0500 Heart rate 92 /min Nikhil Tubbs [facility] 04-02-2023 21:43-0500 Body temperature 97.34 [degF] Elisa Sánchez [facility] 04-02-2023 21:43-0500 Diastolic blood pressure 94 mm[Hg] Paulan Dokken [facility] 04-02-2023 21:43-0500 Heart rate 96 /min Elisa Slaterkkhudson [facility] 04-02-2023 21:43-0500 Respiratory rate 20 /min Paulan kken [facility] 04-02-2023 21:43-0500 SaO2% (BldA) [Mass fraction] 96 % Paulan kkhudson [facility] 04-02-2023 21:43-0500 Systolic blood pressure 145 mm[Hg] Paulan Dokken [facility] 04-01-2023 08:21-0500 Body height 160 cm Chidi Joseph MD Work Phone: [facility] 04-01-2023 08:21-0500 Body mass index (BMI) [Ratio] 43.22 kg/m2 Chidi Joseph MD Work Phone: [facility] 04-01-2023 08:21-0500 Body temperature 97.5 [degF] Chidi Joseph MD Work Phone: [facility] 04-01-2023 08:21-0500 Body weight 110.68 kg hCidi Joseph MD Work Phone: [facility] 04-01-2023 08:21-0500 Diastolic blood pressure 87 mm[Hg] Chidi Joseph MD Work Phone: [facility] 04-01-2023 08:21-0500 Heart rate 92 /min Chidi Joseph MD Work Phone: [facility] 04-01-2023 08:21-0500 Respiratory rate 16 /min Chidi Joseph MD Work Phone: [facility] 04-01-2023 08:21-0500 Systolic blood pressure 138 mm[Hg] Chidi Joseph MD Work Phone: [facility] 03-29-2023 10:06-0500 Body height 160.02 cm OTHER SALES SUPPORT WORKER Felice Veliz Work Phone: [facility] 03-29-2023 10:06-0500 Body temperature 97.5 [degF] OTHER SALES SUPPORT WORKER Felice Veliz Work Phone: [facility] 03-29-2023 10:06-0500 Body weight 111 kg OTHER SALES SUPPORT WORKER Felice Veliz Work Phone: [facility] 03-29-2023 10:06-0500 Diastolic blood pressure 86 mm[Hg] OTHER SALES SUPPORT WORKER Felice Veliz Work Phone: [facility] 03-29-2023 10:06-0500 Heart rate 85 /min OTHER SALES SUPPORT WORKER Felice Veliz Work Phone: [facility] 03-29-2023 10:06-0500 Respiratory rate 20 /min OTHER SALES SUPPORT WORKER Felice Veliz Work Phone: [facility] 03-29-2023 10:06-0500 SaO2% (BldA) [Mass fraction] 96 % OTHER SALES SUPPORT WORKER Felice Veliz Work Phone: [facility] 03-29-2023 10:06-0500 Systolic blood pressure 133 mm[Hg] OTHER SALES SUPPORT WORKER Felice Veliz Work Phone: [facility] 03-26-2023 12:43-0500 Diastolic blood pressure 80 mm[Hg] Jorge Mcintosh [facility] 03-26-2023 12:43-0500 Heart rate 79 /min Jorge Mcintosh [facility] 03-26-2023 12:43-0500 Respiratory rate 16 /min Jorge Mcintohs [facility] 03-26-2023 12:43-0500 SaO2% (BldA) [Mass fraction] 100 % Jorge Mcintosh [facility] 03-26-2023 12:43-0500 Systolic blood pressure 109 mm[Hg] Jorge Mcintosh [facility] 03-26-2023 10:55-0500 Body temperature 97.88 [degF] Jorge Mcintosh [facility] 03-26-2023 10:55-0500 Diastolic blood pressure 75 mm[Hg] Jorge Mcintosh [facility] 03-26-2023 10:55-0500 Heart rate 88 /min Jorge Mcintosh [facility] 03-26-2023 10:55-0500 Respiratory rate 16 /min Jorge Mcintosh [facility] 03-26-2023 10:55-0500 SaO2% (BldA) [Mass fraction] 95 % Jorge Mcintosh [facility] 03-26-2023 10:55-0500 Systolic blood pressure 132 mm[Hg] Jorge Mcintosh [facility] 2023 13:28-0500 Body height 160.02 cm ELIZABETH Veliz Work Phone: [facility] 2023 13:28-0500 Body temperature 97.8 [degF] OTHER SALES SUPPORT WORKER Felice Veliz Work Phone: [facility] 2023 13:28-0500 Body weight 112.3 kg ELIZABETH Veliz Work Phone: [facility] 2023 13:28-0500 Diastolic blood pressure 85 mm[Hg] ELIZABETH Veliz Work Phone: [facility] 2023 13:28-0500 Heart rate 72 /min ELIZABETH Veliz Work Phone: [facility] 2023 13:28-0500 Respiratory rate 20 /min ELIZABETH Veliz Work Phone: [facility] 2023 13:28-0500 SaO2% (BldA) [Mass fraction] 98 % ELIZABETH Veliz Work Phone: [facility] 2023 13:28-0500 Systolic blood pressure 148 mm[Hg] ELIZABETH Veliz Work Phone: [facility] 03-23-2023 12:47-0500 Body temperature 97.7 [degF] Nikhil Tubbs [facility] 03-23-2023 12:47-0500 Diastolic blood pressure 100 mm[Hg] Nikhil Arley [facility] 03-23-2023 12:47-0500 Heart rate 77 /min Nikhil Tubbs [facility] 03-23-2023 12:47-0500 Respiratory rate 16 /min Nikhil Tubbs [facility] 03-23-2023 12:47-0500 SaO2% (BldA) [Mass fraction] 98 % Nikhil Tubbs [facility] 03-23-2023 12:47-0500 Systolic blood pressure 158 mm[Hg] Nikhil Arley [facility] 03-20-2023 13:07-0500 Body temperature 98.06 [degF] Elisa Sánchez [facility] 03-20-2023 13:07-0500 Diastolic blood pressure 87 mm[Hg] Elisa Dovaleriaen [facility] 03-20-2023 13:07-0500 Heart rate 99 /min Elisa Dovaleriaen [facility] 03-20-2023 13:07-0500 Respiratory rate 16 /min Houstonwiradha Slaterkken [facility] 03-20-2023 13:07-0500 SaO2% (BldA) [Mass fraction] 97 % Houstonwiradha Fuentesen [facility] 03-20-2023 13:07-0500 Systolic blood pressure 125 mm[Hg] Paulan Dokken [facility] 03-11-2023 10:57-0500 Blood Pressure Location [facility] 03-11-2023 10:57-0500 Diastolic blood pressure 83 mm[Hg] [facility] 03-11-2023 10:57-0500 Heart rate 82 /min [facility] 03-11-2023 10:57-0500 Mean blood pressure 110 mm[Hg] [facility] 03-11-2023 10:57-0500 Respiratory rate 16 /min [facility] 03-11-2023 10:57-0500 SaO2% (BldA) [Mass fraction] 97 % [facility] 03-11-2023 10:57-0500 Systolic blood pressure 163 mm[Hg] [facility] 03-11-2023 10:13-0500 Blood Pressure Location [facility] 03-11-2023 10:13-0500 Diastolic blood pressure 99 mm[Hg] [facility] 03-11-2023 10:13-0500 Heart rate 64 /min [facility] 03-11-2023 10:13-0500 Mean blood pressure 117 mm[Hg] [facility] 03-11-2023 10:13-0500 Respiratory rate 16 /min [facility] 03-11-2023 10:13-0500 SaO2% (BldA) [Mass fraction] 95 % [facility] 03-11-2023 10:13-0500 Systolic blood pressure 154 mm[Hg] [facility] 03-11-2023 09:02-0500 Body temperature 97.88 [degF] [facility] 03-11-2023 09:02-0500 Diastolic blood pressure 94 mm[Hg] [facility] 03-11-2023 09:02-0500 Heart rate 76 /min [facility] 03-11-2023 09:02-0500 Respiratory rate 20 /min [facility] 03-11-2023 09:02-0500 SaO2% (BldA) [Mass fraction] 96 % [facility] 03-11-2023 09:02-0500 Systolic blood pressure 143 mm[Hg] [facility] 03-09-2023 10:24-0500 Body height 160.02 cm PHYSICIAN NO [facility] 03-09-2023 10:24-0500 Body temperature 97.9 [degF] PHYSICIAN NO [facility] 03-09-2023 10:24-0500 Body weight 110 kg PHYSICIAN NO [facility] 03-09-2023 10:24-0500 Diastolic blood pressure 87 mm[Hg] PHYSICIAN NO [facility] 03-09-2023 10:24-0500 Heart rate 97 /min PHYSICIAN NO [facility] 03-09-2023 10:24-0500 Respiratory rate 16 /min PHYSICIAN NO [facility] 03-09-2023 10:24-0500 SaO2% (BldA) [Mass fraction] 96 % PHYSICIAN NO [facility] 03-09-2023 10:24-0500 Systolic blood pressure 154 mm[Hg] PHYSICIAN NO [facility] 02-21-2023 17:00-0500 Body height 160.02 cm [facility] Work Phone: [facility] 02-21-2023 17:00-0500 Body weight 110.95 kg [facility] Work Phone: [facility] 02-21-2023 16:59-0500 Body temperature 97.3 [degF] [facility] Work Phone: [facility] 02-21-2023 16:59-0500 Diastolic blood pressure 86 mm[Hg] [facility] Work Phone: [facility] 02-21-2023 16:59-0500 Heart rate 91 /min [facility] Work Phone: [facility] 02-21-2023 16:59-0500 Respiratory rate 20 /min [facility] Work Phone: [facility] 02-21-2023 16:59-0500 SaO2% (BldA) [Mass fraction] 97 % [facility] Work Phone: [facility] 02-21-2023 16:59-0500 Systolic blood pressure 183 mm[Hg] [facility] Work Phone: [facility] 02-12-2023 19:48-0500 Body temperature 98.06 [degF] Pedro Pablo Chance [facility] 02-12-2023 19:48-0500 Diastolic blood pressure 84 mm[Hg] Pedro Pablo Chance [facility] 02-12-2023 19:48-0500 Heart rate 98 /min Pedro Pablo Chance [facility] 02-12-2023 19:48-0500 Respiratory rate 18 /min Pedro PabloSilverskyner [facility] 02-12-2023 19:48-0500 SaO2% (BldA) [Mass fraction] 100 % Pedro Pablo Chance [facility] 02-12-2023 19:48-0500 Systolic blood pressure 134 mm[Hg] Pedro Pablo Chance [facility] 02-08-2023 17:18-0500 Body height 160.02 cm [facility] Work Phone: [facility] 02-08-2023 17:18-0500 Body temperature 98.5 [degF] [facility] Work Phone: [facility] 02-08-2023 17:18-0500 Body weight 108.86 kg [facility] Work Phone: [facility] 02-08-2023 17:18-0500 Diastolic blood pressure 115 mm[Hg] [facility] Work Phone: [facility] 02-08-2023 17:18-0500 Heart rate 98 /min [facility] Work Phone: [facility] 02-08-2023 17:18-0500 Respiratory rate 18 /min [facility] Work Phone: [facility] 02-08-2023 17:18-0500 SaO2% (BldA) [Mass fraction] 98 % [facility] Work Phone: [facility] 02-08-2023 17:18-0500 Systolic blood pressure 167 mm[Hg] [facility] Work Phone: [facility] 02-07-2023 19:28-0500 Body temperature 97.88 [degF] Elisa Dokken [facility] 02-07-2023 19:28-0500 Diastolic blood pressure 84 mm[Hg] Bebetoylinn Dokken [facility] 02-07-2023 19:28-0500 Heart rate 114 /min Elisa Sánchez [facility] 02-07-2023 19:28-0500 Respiratory rate 18 /min Elisa Sánchez [facility] 02-07-2023 19:28-0500 SaO2% (BldA) [Mass fraction] 99 % Elisa Sánchez [facility] 02-07-2023 19:28-0500 Systolic blood pressure 163 mm[Hg] Elisa Sánchez [facility] 02-04-2023 13:13-0500 Diastolic blood pressure 91 mm[Hg] Services [facility] Work Phone: [facility] 02-04-2023 13:13-0500 Heart rate 95 /min [facility] Work Phone: [facility] 02-04-2023 13:13-0500 Respiratory rate 18 /min [facility] Work Phone: [facility] 02-04-2023 13:13-0500 SaO2% (BldA) [Mass fraction] 99 % [facility] Work Phone: [facility] 02-04-2023 13:13-0500 Systolic blood pressure 145 mm[Hg] [facility] Work Phone: [facility] 02-04-2023 11:54-0500 Body height 160.02 cm [facility] Work Phone: [facility] 02-04-2023 11:54-0500 Body temperature 98.1 [degF] Services [facility] Work Phone: [facility] 02-04-2023 11:54-0500 Body weight 110.15 kg Services [facility] Work Phone: [facility] 02-02-2023 13:17-0500 Body height 160.02 cm [facility] Work Phone: [facility] 02-02-2023 13:17-0500 Body temperature 98.7 [degF] [facility] Work Phone: [facility] 02-02-2023 13:17-0500 Body weight 112.2 kg [facility] Work Phone: [facility] 02-02-2023 13:17-0500 Diastolic blood pressure 92 mm[Hg] [facility] Work Phone: [facility] 02-02-2023 13:17-0500 Heart rate 96 /min [facility] Work Phone: [facility] 02-02-2023 13:17-0500 Respiratory rate 24 /min [facility] Work Phone: [facility] 02-02-2023 13:17-0500 SaO2% (BldA) [Mass fraction] 98 % Services [facility] Work Phone: [facility] 02-02-2023 13:17-0500 Systolic blood pressure 171 mm[Hg] [facility] Work Phone: [facility] 01-29-2023 11:35-0500 Body temperature 98.06 [degF] Jorge Rodrigueze [facility] 01-29-2023 11:35-0500 Diastolic blood pressure 87 mm[Hg] Jorge Arnaldo [facility] 01-29-2023 11:35-0500 Heart rate 84 /min Jorge Arnaldo [facility] 01-29-2023 11:35-0500 Respiratory rate 18 /min Jorge Rodrigueze [facility] 01-29-2023 11:35-0500 SaO2% (BldA) [Mass fraction] 97 % Jorge Arnaldo [facility] 01-29-2023 11:35-0500 Systolic blood pressure 140 mm[Hg] Jorge Arnaldo [facility] 01-27-2023 10:41-0500 Body height 163.19 cm [facility] Work Phone: [facility] 01-27-2023 10:41-0500 Body weight 110 kg [facility] Work Phone: [facility] 01-27-2023 10:39-0500 Body temperature 98.2 [degF] [facility] Work Phone: [facility] 01-27-2023 10:39-0500 Diastolic blood pressure 100 mm[Hg] [facility] Work Phone: [facility] 01-27-2023 10:39-0500 Heart rate 96 /min [facility] Work Phone: [facility] 01-27-2023 10:39-0500 Respiratory rate 18 /min [facility] Work Phone: [facility] 01-27-2023 10:39-0500 SaO2% (BldA) [Mass fraction] 98 % [facility] Work Phone: [facility] 01-27-2023 10:39-0500 Systolic blood pressure 140 mm[Hg] [facility] Work Phone: [facility] 01-23-2023 13:19-0400 Body height 160.02 cm [facility] Work Phone: [facility] 01-23-2023 13:19-0400 Body temperature 97.4 [degF] [facility] Work Phone: [facility] 01-23-2023 13:19-0400 Body weight 113.4 kg [facility] Work Phone: [facility] 01-23-2023 13:19-0400 Diastolic blood pressure 85 mm[Hg] [facility] Work Phone: [facility] 01-23-2023 13:19-0400 Heart rate 81 /min [facility] Work Phone: [facility] 01-23-2023 13:19-0400 Respiratory rate 20 /min Services [facility] Work Phone: [facility] 01-23-2023 13:19-0400 SaO2% (BldA) [Mass fraction] 99 % Services [facility] Work Phone: [facility] 01-23-2023 13:19-0400 Systolic blood pressure 154 mm[Hg] Services [facility] Work Phone: [facility] 01-22-2023 18:48-0400 Body temperature 97.52 [degF] [facility] 01-22-2023 18:48-0400 Diastolic blood pressure 97 mm[Hg] [facility] 01-22-2023 18:48-0400 Heart rate 85 /min [facility] 01-22-2023 18:48-0400 Respiratory rate 16 /min [facility] 01-22-2023 18:48-0400 SaO2% (BldA) [Mass fraction] 96 % [facility] 01-22-2023 18:48-0400 Systolic blood pressure 143 mm[Hg] [facility] 01-22-2023 13:45-0400 Body height 160 cm Jori Cam MD PhD Work Phone: [facility] 01-22-2023 13:45-0400 Body mass index (BMI) [Ratio] 43.08 kg/m2 Jori Cam MD PhD Work Phone: [facility] 01-22-2023 13:45-0400 Body temperature 96.8 [degF] Jori Cam MD PhD Work Phone: [facility] 01-22-2023 13:45-0400 Body weight 110.31 kg Jori Cam MD PhD Work Phone: [facility] 01-22-2023 13:45-0400 Diastolic blood pressure 84 mm[Hg] Jori Cam MD PhD Work Phone: [facility] 01-22-2023 13:45-0400 Heart rate 97 /min Jori Cam MD PhD Work Phone: [facility] 01-22-2023 13:45-0400 Systolic blood pressure 160 mm[Hg] Jori Cam MD PhD Work Phone: [facility] 01-15-2023 13:20-0400 Body height 160 cm Antonio Newbill PA-C Work Phone: [facility] 01-15-2023 13:20-0400 Body mass index (BMI) [Ratio] 44.04 kg/m2 Antonio Newbill PA-C Work Phone: [facility] 01-15-2023 13:20-0400 Body temperature 97.5 [degF] Antonio Newbill PA-C Work Phone: [facility] 01-15-2023 13:20-0400 Body weight 112.76 kg Antonio Newbill PA-C Work Phone: [facility] 01-15-2023 13:20-0400 Diastolic blood pressure 90 mm[Hg] Antonio Newbill PA-C Work Phone: [facility] 01-15-2023 13:20-0400 Heart rate 92 /min Antonio Newbill PA-C Work Phone: [facility] 01-15-2023 13:20-0400 SaO2% (BldA) [Mass fraction] 94 % Antonio Newbill PA-C Work Phone: [facility] 01-15-2023 13:20-0400 Systolic blood pressure 144 mm[Hg] Antonio Newbill PA-C Work Phone: [facility] 01-14-2023 14:35-0400 Body temperature 97.52 [degF] Jorge Mcintosh [facility] 01-14-2023 14:35-0400 Diastolic blood pressure 81 mm[Hg] Jorge Mcintosh [facility] 01-14-2023 14:35-0400 Heart rate 81 /min Jorge Mcintosh [facility] 01-14-2023 14:35-0400 Respiratory rate 22 /min Jorge Mcintosh [facility] 01-14-2023 14:35-0400 SaO2% (BldA) [Mass fraction] 95 % Jorge Mcintosh [facility] 01-14-2023 14:35-0400 Systolic blood pressure 118 mm[Hg] Jorge Mcintosh [facility] 01-12-2023 21:30-0400 Body temperature 98.06 [degF] [facility] 01-12-2023 21:30-0400 Diastolic blood pressure 80 mm[Hg] [facility] 01-12-2023 21:30-0400 Heart rate 78 /min [facility] 01-12-2023 21:30-0400 Mean blood pressure 100 mm[Hg] [facility] 01-12-2023 21:30-0400 Respiratory rate 16 /min [facility] 01-12-2023 21:30-0400 SaO2% (BldA) [Mass fraction] 98 % [facility] 01-12-2023 21:30-0400 Systolic blood pressure 140 mm[Hg] [facility] 01-12-2023 21:00-0400 Diastolic blood pressure 67 mm[Hg] [facility] 01-12-2023 21:00-0400 Heart rate 70 /min [facility] 01-12-2023 21:00-0400 Mean blood pressure 91 mm[Hg] [facility] 01-12-2023 21:00-0400 Systolic blood pressure 138 mm[Hg] [facility] 01-12-2023 20:24-0400 Body temperature 98.06 [degF] [facility] 01-12-2023 20:24-0400 Diastolic blood pressure 84 mm[Hg] [facility] 01-12-2023 20:24-0400 Heart rate 79 /min [facility] 01-12-2023 20:24-0400 Respiratory rate 20 /min [facility] 01-12-2023 20:24-0400 SaO2% (BldA) [Mass fraction] 97 % [facility] 01-12-2023 20:24-0400 Systolic blood pressure 144 mm[Hg] [facility] 01-12-2023 10:20-0400 Body height 160.02 cm [facility] Work Phone: [facility] 01-12-2023 10:20-0400 Body temperature 97.8 [degF] [facility] Work Phone: [facility] 01-12-2023 10:20-0400 Body weight 113.39 kg [facility] Work Phone: [facility] 01-12-2023 10:20-0400 Diastolic blood pressure 75 mm[Hg] [facility] Work Phone: [facility] 01-12-2023 10:20-0400 Heart rate 79 /min [facility] Work Phone: [facility] 01-12-2023 10:20-0400 Respiratory rate 18 /min [facility] Work Phone: [facility] 01-12-2023 10:20-0400 SaO2% (BldA) [Mass fraction] 96 % [facility] Work Phone: [facility] 01-12-2023 10:20-0400 Systolic blood pressure 130 mm[Hg] [facility] Work Phone: [facility] 01-10-2023 10:32-0400 Body temperature 97.88 [degF] Nikhil Tubbs [facility] 01-10-2023 10:32-0400 Diastolic blood pressure 92 mm[Hg] Nikhil Tubbs [facility] 01-10-2023 10:32-0400 Heart rate 75 /min Nikhil Tubbs [facility] 01-10-2023 10:32-0400 Respiratory rate 18 /min Nikhli Tubbs [facility] 01-10-2023 10:32-0400 SaO2% (BldA) [Mass fraction] 98 % Nikhil Tubbs [facility] 01-10-2023 10:32-0400 Systolic blood pressure 138 mm[Hg] Nikhil Tubbs [facility] 01-10-2023 08:40-0400 Body height 162.56 cm Joe Meza Other [facility] [employer] Other 01-10-2023 08:40-0400 Body mass index (BMI) [Ratio] 43.94 kg/m2 Joe Meza Other [employer] Other 01-10-2023 08:40-0400 Body weight 116.12 kg Joe Meza Other [employer] Other 01-07-2023 11:04-0400 Body height 160.02 cm [facility] Work Phone: [facility] 01-07-2023 11:04-0400 Body temperature 97.5 [degF] [facility] Work Phone: [facility] 01-07-2023 11:04-0400 Body weight 108.86 kg [facility] Work Phone: [facility] 01-07-2023 11:04-0400 Diastolic blood pressure 81 mm[Hg] [facility] Work Phone: [facility] 01-07-2023 11:04-0400 Heart rate 75 /min Services [facility] [employer] Work Phone: [facility] 01-07-2023 11:04-0400 Respiratory rate 18 /min Services [facility] [employer] Work Phone: [facility] 01-07-2023 11:04-0400 SaO2% (BldA) [Mass fraction] 97 % [facility] Work Phone: [facility] 01-07-2023 11:04-0400 Systolic blood pressure 159 mm[Hg] Services [facility] [employer] Work Phone: [facility] 01-04-2023 23:07-0400 Diastolic blood pressure 83 mm[Hg] [facility] 01-04-2023 23:07-0400 Heart rate 77 /min [facility] 01-04-2023 23:07-0400 Respiratory rate 18 /min [facility] 01-04-2023 23:07-0400 SaO2% (BldA) [Mass fraction] 95 % [facility] 01-04-2023 23:07-0400 Systolic blood pressure 124 mm[Hg] [facility] 01-04-2023 21:12-0400 Body temperature 97.88 [degF] [facility] 01-04-2023 21:12-0400 Diastolic blood pressure 82 mm[Hg] [facility] 01-04-2023 21:12-0400 Heart rate 81 /min [facility] 01-04-2023 21:12-0400 Respiratory rate 16 /min [facility] 01-04-2023 21:12-0400 SaO2% (BldA) [Mass fraction] 98 % [facility] 01-04-2023 21:12-0400 Systolic blood pressure 121 mm[Hg] [facility] 01-04-2023 15:17-0400 Body height 160.02 cm Services [facility] Work Phone: [facility] 01-04-2023 15:17-0400 Body temperature 98.5 [degF] [facility] Work Phone: [facility] 01-04-2023 15:17-0400 Body weight 108.86 kg [facility] Work Phone: [facility] 01-04-2023 15:17-0400 Diastolic blood pressure 68 mm[Hg] [facility] Work Phone: [facility] 01-04-2023 15:17-0400 Heart rate 97 /min [facility] Work Phone: [facility] 01-04-2023 15:17-0400 Respiratory rate 18 /min [facility] Work Phone: [facility] 01-04-2023 15:17-0400 SaO2% (BldA) [Mass fraction] 96 % [facility] Work Phone: [facility] 01-04-2023 15:17-0400 Systolic blood pressure 148 mm[Hg] [facility] Work Phone: [facility] 01-02-2023 16:07-0400 Body temperature 97.88 [degF] Nikhil Tubbs [facility] 01-02-2023 16:07-0400 Diastolic blood pressure 84 mm[Hg] Nikhil Tubbs [facility] 01-02-2023 16:07-0400 Heart rate 67 /min Nikhil Tubbs [facility] 01-02-2023 16:07-0400 Respiratory rate 18 /min Nikhil Tubbs [facility] 01-02-2023 16:07-0400 SaO2% (BldA) [Mass fraction] 93 % Nikhil Tubbs [facility] 01-02-2023 16:07-0400 Systolic blood pressure 127 mm[Hg] Nikhil Tubbs [facility] 12-28-2022 14:48-0400 Heart rate 97 /min [facility] Work Phone: [facility] 12-28-2022 13:09-0400 Body height 160.02 cm [facility] Work Phone: [facility] 12-28-2022 13:09-0400 Body temperature 98.3 [degF] [facility] Work Phone: [facility] 12-28-2022 13:09-0400 Body weight 108.86 kg [facility] Work Phone: [facility] 12-28-2022 13:09-0400 Diastolic blood pressure 84 mm[Hg] [facility] Work Phone: [facility] 12-28-2022 13:09-0400 Respiratory rate 20 /min [facility] Work Phone: [facility] 12-28-2022 13:09-0400 SaO2% (BldA) [Mass fraction] 100 % Services [facility] Work Phone: [facility] 12-28-2022 13:09-0400 Systolic blood pressure 124 mm[Hg] [facility] Work Phone: [facility] 12-27-2022 08:40-0400 Body height 162.56 cm Rose Marie Shepherd Other [employer] Other 12-27-2022 08:40-0400 Body mass index (BMI) [Ratio] 42.05 kg/m2 Rose Marie Shepherd Other [facility] [employer] Other 12-27-2022 08:40-0400 Body weight 111.13 kg Rose Marie Shepherd Other [facility] [employer] Other 12-26-2022 16:28-0400 Body temperature 98.06 [degF] [facility] 12-26-2022 16:28-0400 Diastolic blood pressure 63 mm[Hg] [facility] 12-26-2022 16:28-0400 Heart rate 74 /min [facility] 12-26-2022 16:28-0400 Respiratory rate 18 /min [facility] 12-26-2022 16:28-0400 SaO2% (BldA) [Mass fraction] 98 % [facility] 12-26-2022 16:28-0400 Systolic blood pressure 142 mm[Hg] [facility] 12-26-2022 13:15-0400 Body height 162.56 cm Glen Garza Other [facility] [employer] Other 12-26-2022 13:15-0400 Body mass index (BMI) [Ratio] 42.74 kg/m2 Glen Garza Other [facility] [employer] Other 12-26-2022 13:15-0400 Body weight 112.95 kg Glen Garza Other [employer] Other 12-26-2022 13:15-0400 Diastolic blood pressure 80 mm[Hg] Glen Garza Other [employer] Other 12-26-2022 13:15-0400 SaO2% (BldA) [Mass fraction] 98 % Glen Garza Other [facility] [employer] Other 12-26-2022 13:15-0400 Systolic blood pressure 126 mm[Hg] Glen Garza Other [facility] [employer] Other 12-24-2022 12:28-0400 Body height 160.02 cm Services [facility] Work Phone: [facility] 12-24-2022 12:28-0400 Body temperature 97.8 [degF] [facility] Work Phone: [facility] 12-24-2022 12:28-0400 Body weight 114 kg [facility] Work Phone: [facility] 12-24-2022 12:28-0400 Diastolic blood pressure 78 mm[Hg] [facility] Work Phone: [facility] 12-24-2022 12:28-0400 Heart rate 82 /min [facility] Work Phone: [facility] 12-24-2022 12:28-0400 Respiratory rate 20 /min [facility] Work Phone: [facility] 12-24-2022 12:28-0400 SaO2% (BldA) [Mass fraction] 100 % [facility] Work Phone: [facility] 12-24-2022 12:28-0400 Systolic blood pressure 135 mm[Hg] [facility] Work Phone: [facility] 12-23-2022 16:55-0400 Body temperature 97.7 [degF] Nikhil Tubbs [facility] 12-23-2022 16:55-0400 Diastolic blood pressure 80 mm[Hg] Nikhil Tubbs [facility] 12-23-2022 16:55-0400 Heart rate 81 /min Nikhil Tubbs [facility] 12-23-2022 16:55-0400 Respiratory rate 20 /min Nikhil Tubbs [facility] 12-23-2022 16:55-0400 SaO2% (BldA) [Mass fraction] 98 % Nikhil Tubbs [facility] 12-23-2022 16:55-0400 Systolic blood pressure 123 mm[Hg] Nikhil Tubbs [facility] 12-21-2022 16:11-0400 Body height 160.02 cm [facility] Work Phone: [facility] 12-21-2022 16:11-0400 Body weight 112 kg [facility] Work Phone: [facility] 12-21-2022 16:10-0400 Body temperature 97.8 [degF] [facility] Work Phone: [facility] 12-21-2022 16:10-0400 Diastolic blood pressure 78 mm[Hg] [facility] Work Phone: [facility] 12-21-2022 16:10-0400 Heart rate 87 /min [facility] Work Phone: [facility] 12-21-2022 16:10-0400 Respiratory rate 16 /min [facility] Work Phone: [facility] 12-21-2022 16:10-0400 SaO2% (BldA) [Mass fraction] 97 % [facility] Work Phone: [facility] 12-21-2022 16:10-0400 Systolic blood pressure 139 mm[Hg] [facility] Work Phone: [facility] 12-18-2022 12:25-0400 Body temperature 98.06 [degF] Jorge Mcintosh [facility] 12-18-2022 12:25-0400 Diastolic blood pressure 84 mm[Hg] Jorge Mcintosh [facility] 12-18-2022 12:25-0400 Heart rate 77 /min Jorge Mcintosh [facility] 12-18-2022 12:25-0400 Respiratory rate 18 /min Jorge Mcintosh [facility] 12-18-2022 12:25-0400 SaO2% (BldA) [Mass fraction] 98 % Jorge Mcintosh [facility] 12-18-2022 12:25-0400 Systolic blood pressure 131 mm[Hg] Jorge Mcintosh [facility] 12-14-2022 15:12-0400 Body height 160.02 cm [facility] Work Phone: [facility] 12-14-2022 15:12-0400 Body temperature 98.1 [degF] Services [facility] Work Phone: [facility] 12-14-2022 15:12-0400 Body weight 108.86 kg Services [facility] Work Phone: [facility] 12-14-2022 15:12-0400 Diastolic blood pressure 73 mm[Hg] Services [facility] Work Phone: [facility] 12-14-2022 15:12-0400 Heart rate 93 /min [facility] Work Phone: [facility] 12-14-2022 15:12-0400 Respiratory rate 20 /min [facility] Work Phone: [facility] 12-14-2022 15:12-0400 SaO2% (BldA) [Mass fraction] 97 % [facility] Work Phone: [facility] 12-14-2022 15:12-0400 Systolic blood pressure 132 mm[Hg] [facility] Work Phone: [facility] 12-13-2022 18:33-0400 Diastolic blood pressure 68 mm[Hg] Nikhil Arley [facility] 12-13-2022 18:33-0400 Heart rate 61 /min Nikhil Alrey [facility] 12-13-2022 18:33-0400 Mean blood pressure 95 mm[Hg] Nikhil Arley [facility] 12-13-2022 18:33-0400 SaO2% (BldA) [Mass fraction] 97 % Nikhil Arley [facility] 12-13-2022 18:33-0400 Systolic blood pressure 149 mm[Hg] Nikhil Arley [facility] 12-13-2022 18:13-0400 Diastolic blood pressure 63 mm[Hg] Nikhil Arley [facility] 12-13-2022 18:13-0400 Heart rate 73 /min Nikhil Arley [facility] 12-13-2022 18:13-0400 Mean blood pressure 86 mm[Hg] Nikhil Arley [facility] 12-13-2022 18:13-0400 Respiratory rate 20 /min Nikhil Arley [facility] 12-13-2022 18:13-0400 SaO2% (BldA) [Mass fraction] 98 % Nikhil Arley [facility] 12-13-2022 18:13-0400 Systolic blood pressure 131 mm[Hg] Nikhil Arley [facility] 12-13-2022 17:22-0400 Body temperature 98.06 [degF] Nikhil Arley [facility] 12-13-2022 17:22-0400 Diastolic blood pressure 61 mm[Hg] Nikhil Arley [facility] 12-13-2022 17:22-0400 Heart rate 63 /min Nikhil Arley [facility] 12-13-2022 17:22-0400 Respiratory rate 22 /min Nikhil Arley [facility] 12-13-2022 17:22-0400 SaO2% (BldA) [Mass fraction] 98 % Nikhil Arley [facility] 12-13-2022 17:22-0400 Systolic blood pressure 147 mm[Hg] Nikhil Arley [facility] 12-13-2022 00:15-0400 Diastolic blood pressure 56 mm[Hg] Kaylinn Dokken [facility] 12-13-2022 00:15-0400 Heart rate 65 /min Kaylinn Dokken [facility] 12-13-2022 00:15-0400 Mean blood pressure 77 mm[Hg] Kaylinn Dokken [facility] 12-13-2022 00:15-0400 Respiratory rate 16 /min Kaylinn Dokken [facility] 12-13-2022 00:15-0400 SaO2% (BldA) [Mass fraction] 96 % Kaylinn Dokken [facility] 12-13-2022 00:15-0400 Systolic blood pressure 120 mm[Hg] Kaylinn Dokken [facility] 12-12-2022 23:39-0400 Diastolic blood pressure 47 mm[Hg] Kaylinn Dokken [facility] 12-12-2022 23:39-0400 Heart rate 70 /min Kaylinn Dokken [facility] 12-12-2022 23:39-0400 Mean blood pressure 77 mm[Hg] Kaylinn Dokken [facility] 12-12-2022 23:39-0400 Respiratory rate 25 /min Kaylinn Dokken [facility] 12-12-2022 23:39-0400 SaO2% (BldA) [Mass fraction] 95 % Kaylinn Dokken [facility] 12-12-2022 23:39-0400 Systolic blood pressure 136 mm[Hg] Kaylinn Dokken [facility] 12-12-2022 22:59-0400 Diastolic blood pressure 72 mm[Hg] Kaylinn Dokken [facility] 12-12-2022 22:59-0400 Heart rate 69 /min Kaylinn Dokken [facility] 12-12-2022 22:59-0400 Mean blood pressure 96 mm[Hg] Kaylinn Dokken [facility] 12-12-2022 22:59-0400 Respiratory rate 18 /min Kaylinn Dokken [facility] 12-12-2022 22:59-0400 SaO2% (BldA) [Mass fraction] 95 % Kaylinn Dokken [facility] 12-12-2022 22:59-0400 Systolic blood pressure 143 mm[Hg] Kaylinn Dokken [facility] 12-12-2022 22:04-0400 Respiratory rate 18 /min Kaylinn Dokken [facility] 12-12-2022 20:58-0400 Body temperature 98.24 [degF] Elisa Sánchez [facility] 12-12-2022 20:58-0400 Heart rate 79 /min Elisa Sánchez [facility] 12-12-2022 20:58-0400 Respiratory rate 18 /min Elisa Sánchez [facility] 12-12-2022 10:45-0400 Diastolic blood pressure 75 mm[Hg] [facility] Work Phone: [facility] 12-12-2022 10:45-0400 Heart rate 84 /min [facility] Work Phone: [facility] 12-12-2022 10:45-0400 Respiratory rate 16 /min [facility] Work Phone: [facility] 12-12-2022 10:45-0400 SaO2% (BldA) [Mass fraction] 100 % [facility] Work Phone: [facility] 12-12-2022 10:45-0400 Systolic blood pressure 127 mm[Hg] [facility] Work Phone: [facility] 12-12-2022 09:01-0400 Body height 162.56 cm [facility] Work Phone: [facility] 12-12-2022 09:01-0400 Body weight 112.03 kg [facility] Work Phone: [facility] 12-11-2022 17:19-0400 Diastolic blood pressure 71 mm[Hg] [facility] Work Phone: [facility] 12-11-2022 17:19-0400 Heart rate 70 /min [facility] Work Phone: [facility] 12-11-2022 17:19-0400 Respiratory rate 20 /min [facility] Work Phone: [facility] 12-11-2022 17:19-0400 SaO2% (BldA) [Mass fraction] 97 % [facility] Work Phone: [facility] 12-11-2022 17:19-0400 Systolic blood pressure 131 mm[Hg] [facility] Work Phone: [facility] 12-11-2022 14:58-0400 Body height 160.02 cm [facility] Work Phone: [facility] 12-11-2022 14:58-0400 Body temperature 98.7 [degF] [facility] Work Phone: [facility] 12-11-2022 14:58-0400 Body weight 108.86 kg [facility] Work Phone: [facility] 12-10-2022 17:46-0400 Body height 160.02 cm [facility] Work Phone: [facility] 12-10-2022 17:46-0400 Body temperature 98.2 [degF] [facility] Work Phone: [facility] 12-10-2022 17:46-0400 Body weight 108.86 kg [facility] Work Phone: [facility] 12-10-2022 17:46-0400 Diastolic blood pressure 90 mm[Hg] [facility] Work Phone: [facility] 12-10-2022 17:46-0400 Heart rate 97 /min [facility] Work Phone: [facility] 12-10-2022 17:46-0400 Respiratory rate 15 /min [facility] Work Phone: [facility] 12-10-2022 17:46-0400 SaO2% (BldA) [Mass fraction] 99 % [facility] Work Phone: [facility] 12-10-2022 17:46-0400 Systolic blood pressure 135 mm[Hg] [facility] Work Phone: [facility] 12-09-2022 16:38-0400 Body height 160.02 cm [facility] Work Phone: [facility] 12-09-2022 16:38-0400 Body temperature 97.7 [degF] [facility] Work Phone: [facility] 12-09-2022 16:38-0400 Body weight 104.32 kg [facility] Work Phone: [facility] 12-09-2022 16:38-0400 Diastolic blood pressure 86 mm[Hg] [facility] Work Phone: [facility] 12-09-2022 16:38-0400 Heart rate 90 /min [facility] Work Phone: [facility] 12-09-2022 16:38-0400 Respiratory rate 20 /min [facility] Work Phone: [facility] 12-09-2022 16:38-0400 SaO2% (BldA) [Mass fraction] 98 % [facility] [employer] Work Phone: [facility] 12-09-2022 16:38-0400 Systolic blood pressure 125 mm[Hg] Services [facility] Work Phone: [facility] 12-07-2022 18:54-0400 Heart rate 70 /min Chandana Avery [facility] 12-07-2022 18:54-0400 Respiratory rate 16 /min Chandana Avery [facility] 12-07-2022 18:54-0400 SaO2% (BldA) [Mass fraction] 99 % Chandana Avery [facility] 12-07-2022 16:49-0400 Body temperature 98.78 [degF] Chandana Avery [facility] 12-07-2022 16:49-0400 Diastolic blood pressure 79 mm[Hg] Chandana Avery [facility] 12-07-2022 16:49-0400 Heart rate 84 /min Chandana Varela [facility] 12-07-2022 16:49-0400 Respiratory rate 18 /min Chandana Varela [facility] 12-07-2022 16:49-0400 SaO2% (BldA) [Mass fraction] 98 % Chandana Varela [facility] 12-07-2022 16:49-0400 Systolic blood pressure 116 mm[Hg] Chandana Varela [facility] 12-07-2022 10:20-0400 Body height 160.02 cm [facility] [employer] [facility] Work Phone: [facility] 12-07-2022 10:20-0400 Body temperature 97.6 [degF] [facility] Work Phone: [facility] 12-07-2022 10:20-0400 Body weight 110.1 kg Services [facility] Work Phone: [facility] 12-07-2022 10:20-0400 Diastolic blood pressure 82 mm[Hg] [facility] [employer] [facility] Work Phone: [facility] 12-07-2022 10:20-0400 Heart rate 98 /min [facility] Work Phone: [facility] 12-07-2022 10:20-0400 Respiratory rate 22 /min [facility] [employer] [facility] Work Phone: [facility] 12-07-2022 10:20-0400 SaO2% (BldA) [Mass fraction] 98 % [facility] Work Phone: [facility] 12-07-2022 10:20-0400 Systolic blood pressure 139 mm[Hg] Services [facility] Work Phone: [facility] 12-04-2022 20:24-0400 Body temperature 98.01 [degF] Allyson Nicole DO Work Phone: [employer] 12-04-2022 20:24-0400 Diastolic blood pressure 74 mm[Hg] Allyson Nicole DO Work Phone: [employer] 12-04-2022 20:24-0400 Heart rate 70 /min Allyson Nicole DO Work Phone: [employer] 12-04-2022 20:24-0400 Respiratory rate 18 /min Allyson Nicole DO Work Phone: [employer] 12-04-2022 20:24-0400 SaO2% (BldA) [Mass fraction] 98 % Allyson Nicole DO Work Phone: [employer] 12-04-2022 20:24-0400 Systolic blood pressure 127 mm[Hg] Allyson Nicole DO Work Phone: [employer] 12-04-2022 19:35-0400 Body height 160 cm [facility] 12-04-2022 19:35-0400 Body mass index (BMI) [Ratio] 42.16 kg/m2 Allyson Nicole [facility] 12-04-2022 19:35-0400 Body weight 107.96 kg Allyson Nicole DO Work Phone: [employer] 11-29-2022 16:15-0400 Body temperature 97.9 [degF] [facility] Work Phone: [facility] 11-29-2022 16:15-0400 Diastolic blood pressure 86 mm[Hg] [facility] Work Phone: [facility] 11-29-2022 16:15-0400 Heart rate 86 /min [facility] Work Phone: [facility] 11-29-2022 16:15-0400 Respiratory rate 18 /min [facility] Work Phone: [facility] 11-29-2022 16:15-0400 SaO2% (BldA) [Mass fraction] 98 % [facility] Work Phone: [facility] 11-29-2022 16:15-0400 Systolic blood pressure 113 mm[Hg] [facility] Work Phone: [facility] 11-29-2022 15:27-0400 Body height 160.02 cm [facility] Work Phone: [facility] 11-29-2022 15:27-0400 Body weight 108.9 kg [facility] Work Phone: [facility] 11-28-2022 10:51-0400 Diastolic blood pressure 95 mm[Hg] [facility] Work Phone: [facility] 11-28-2022 10:51-0400 Heart rate 84 /min [facility] Work Phone: [facility] 11-28-2022 10:51-0400 Respiratory rate 16 /min [facility] Work Phone: [facility] 11-28-2022 10:51-0400 SaO2% (BldA) [Mass fraction] 98 % [facility] Work Phone: [facility] 11-28-2022 10:51-0400 Systolic blood pressure 122 mm[Hg] [facility] Work Phone: [facility] 11-28-2022 10:11-0400 Inhaled oxygen flow rate 3 L/min [facility] Work Phone: [facility] 11-28-2022 08:54-0400 Body height 160.02 cm [facility] Work Phone: [facility] 11-28-2022 08:54-0400 Body temperature 97.9 [degF] [facility] Work Phone: [facility] 11-28-2022 08:54-0400 Body weight 108.86 kg [facility] Work Phone: [facility] 11-19-2022 10:30-0400 Body height 162.56 cm Glen Garza Other [employer] Other 11-19-2022 10:30-0400 Body mass index (BMI) [Ratio] 42.39 kg/m2 Glen Garza Other [employer] Other 11-19-2022 10:30-0400 Body weight 112.04 kg Glen Garza Other [employer] Other 11-19-2022 10:30-0400 Diastolic blood pressure 70 mm[Hg] Glen Garza Other [employer] Other 11-19-2022 10:30-0400 SaO2% (BldA) [Mass fraction] 97 % Glen Garza Other [employer] Other 11-19-2022 10:30-0400 Systolic blood pressure 102 mm[Hg] Glen Garza Other [employer] Other 11-18-2022 12:35-0400 Body height 160.02 cm [facility] Work Phone: [facility] 11-18-2022 12:35-0400 Body temperature 98.6 [degF] [facility] Work Phone: [facility] 11-18-2022 12:35-0400 Body weight 110.4 kg [facility] Work Phone: [facility] 11-18-2022 12:35-0400 Diastolic blood pressure 84 mm[Hg] [facility] Work Phone: [facility] 11-18-2022 12:35-0400 Heart rate 99 /min [facility] Work Phone: [facility] 11-18-2022 12:35-0400 Respiratory rate 20 /min [facility] Work Phone: [facility] 11-18-2022 12:35-0400 SaO2% (BldA) [Mass fraction] 98 % [facility] Work Phone: [facility] 11-18-2022 12:35-0400 Systolic blood pressure 142 mm[Hg] [facility] Work Phone: [facility] 11-16-2022 23:39-0400 Body height 160.02 cm [facility] Work Phone: [facility] 11-16-2022 23:39-0400 Body temperature 97.5 [degF] [facility] Work Phone: [facility] 11-16-2022 23:39-0400 Body weight 110 kg [facility] Work Phone: [facility] 11-16-2022 23:39-0400 Diastolic blood pressure 64 mm[Hg] [facility] Work Phone: [facility] 11-16-2022 23:39-0400 Heart rate 85 /min [facility] Work Phone: [facility] 11-16-2022 23:39-0400 Respiratory rate 18 /min [facility] Work Phone: [facility] 11-16-2022 23:39-0400 SaO2% (BldA) [Mass fraction] 96 % [facility] Work Phone: [facility] 11-16-2022 23:39-0400 Systolic blood pressure 140 mm[Hg] [facility] Work Phone: [facility] 11-15-2022 18:19-0400 Body height 160.02 cm [facility] Work Phone: [facility] 11-15-2022 18:19-0400 Body temperature 97.8 [degF] [facility] Work Phone: [facility] 11-15-2022 18:19-0400 Body weight 111 kg [facility] Work Phone: [facility] 11-15-2022 18:19-0400 Diastolic blood pressure 76 mm[Hg] [facility] Work Phone: [facility] 11-15-2022 18:19-0400 Heart rate 96 /min [facility] Work Phone: [facility] 11-15-2022 18:19-0400 Respiratory rate 22 /min [facility] Work Phone: [facility] 11-15-2022 18:19-0400 SaO2% (BldA) [Mass fraction] 97 % [facility] Work Phone: [facility] 11-15-2022 18:19-0400 Systolic blood pressure 133 mm[Hg] [facility] Work Phone: [facility] 11-12-2022 21:47-0400 Body height 160.02 cm [facility] Work Phone: [facility] 11-12-2022 21:47-0400 Body temperature 98 [degF] [facility] Work Phone: [facility] 11-12-2022 21:47-0400 Body weight 108.86 kg [facility] Work Phone: [facility] 11-12-2022 21:47-0400 Diastolic blood pressure 81 mm[Hg] [facility] Work Phone: [facility] 11-12-2022 21:47-0400 Heart rate 81 /min [facility] Work Phone: [facility] 11-12-2022 21:47-0400 Respiratory rate 20 /min [facility] Work Phone: [facility] 11-12-2022 21:47-0400 SaO2% (BldA) [Mass fraction] 96 % [facility] Work Phone: [facility] 11-12-2022 21:47-0400 Systolic blood pressure 142 mm[Hg] [facility] Work Phone: [facility] 11-11-2022 15:39-0400 Body height 160.02 cm [facility] Work Phone: [facility] 11-11-2022 15:39-0400 Body temperature 97.6 [degF] [facility] Work Phone: [facility] 11-11-2022 15:39-0400 Body weight 109.45 kg [facility] Work Phone: [facility] 11-11-2022 15:39-0400 Diastolic blood pressure 109 mm[Hg] [facility] Work Phone: [facility] 11-11-2022 15:39-0400 Heart rate 105 /min [facility] Work Phone: [facility] 11-11-2022 15:39-0400 Respiratory rate 20 /min [facility] Work Phone: [facility] 11-11-2022 15:39-0400 SaO2% (BldA) [Mass fraction] 96 % [facility] Work Phone: [facility] 11-11-2022 15:39-0400 Systolic blood pressure 153 mm[Hg] [facility] Work Phone: [facility] 11-08-2022 09:05-0400 Body height 160.02 cm [facility] Work Phone: [facility] 11-08-2022 09:05-0400 Body temperature 97.7 [degF] [facility] Work Phone: [facility] 11-08-2022 09:05-0400 Body weight 108.86 kg [facility] Work Phone: [facility] 11-08-2022 09:05-0400 Diastolic blood pressure 76 mm[Hg] [facility] Work Phone: [facility] 11-08-2022 09:05-0400 Heart rate 95 /min [facility] Work Phone: [facility] 11-08-2022 09:05-0400 Respiratory rate 18 /min [facility] Work Phone: [facility] 11-08-2022 09:05-0400 SaO2% (BldA) [Mass fraction] 96 % [facility] Work Phone: [facility] 11-08-2022 09:05-0400 Systolic blood pressure 134 mm[Hg] [facility] [employer] [facility] Work Phone: [facility] 11-06-2022 09:00-0400 Body height 162.56 cm Rose MarieCoupz Other [facility] [employer] Other 11-06-2022 09:00-0400 Body mass index (BMI) [Ratio] 41.36 kg/m2 Rose MarieCoupz Other [employer] Other 11-06-2022 09:00-0400 Body weight 109.32 kg Rose Marie Shepherd Other [employer] Other 11-06-2022 09:00-0400 Diastolic blood pressure 76 mm[Hg] Rose Marie Shepherd Other [employer] Other 11-06-2022 09:00-0400 Systolic blood pressure 136 mm[Hg] Rose Marie Shepherd Other [employer] Other 11-01-2022 20:46-0400 Body height 160.02 cm [facility] Work Phone: [facility] 11-01-2022 20:46-0400 Body temperature 97.8 [degF] [facility] Work Phone: [facility] 11-01-2022 20:46-0400 Body weight 109.76 kg [facility] Work Phone: [facility] 11-01-2022 20:46-0400 Diastolic blood pressure 92 mm[Hg] [facility] Work Phone: [facility] 11-01-2022 20:46-0400 Heart rate 90 /min [facility] Work Phone: [facility] 11-01-2022 20:46-0400 Respiratory rate 12 /min [facility] Work Phone: [facility] 11-01-2022 20:46-0400 SaO2% (BldA) [Mass fraction] 97 % [facility] Work Phone: [facility] 11-01-2022 20:46-0400 Systolic blood pressure 138 mm[Hg] [facility] Work Phone: [facility] 10-31-2022 09:05-0400 Body height 160.02 cm [facility] Work Phone: [facility] 10-31-2022 09:05-0400 Body weight 108.86 kg [facility] Work Phone: [facility] 10-25-2022 21:56-0400 Body height 160.02 cm [facility] Work Phone: [facility] 10-25-2022 21:56-0400 Body temperature 98.1 [degF] [facility] Work Phone: [facility] 10-25-2022 21:56-0400 Body weight 104.32 kg [facility] Work Phone: [facility] 10-25-2022 21:56-0400 Diastolic blood pressure 77 mm[Hg] [facility] Work Phone: [facility] 10-25-2022 21:56-0400 Heart rate 90 /min [facility] Work Phone: [facility] 10-25-2022 21:56-0400 Respiratory rate 18 /min [facility] Work Phone: [facility] 10-25-2022 21:56-0400 SaO2% (BldA) [Mass fraction] 96 % [facility] Work Phone: [facility] 10-25-2022 21:56-0400 Systolic blood pressure 127 mm[Hg] [facility] Work Phone: [facility] 10-23-2022 12:21-0400 Body temperature 97.6 [degF] [facility] Work Phone: [facility] 10-23-2022 12:20-0400 Body height 160.02 cm [facility] Work Phone: [facility] 10-23-2022 12:20-0400 Body weight 108.86 kg [facility] Work Phone: [facility] 10-23-2022 12:20-0400 Diastolic blood pressure 89 mm[Hg] [facility] Work Phone: [facility] 10-23-2022 12:20-0400 Heart rate 87 /min [facility] Work Phone: [facility] 10-23-2022 12:20-0400 Respiratory rate 20 /min [facility] Work Phone: [facility] 10-23-2022 12:20-0400 SaO2% (BldA) [Mass fraction] 97 % [facility] Work Phone: [facility] 10-23-2022 12:20-0400 Systolic blood pressure 133 mm[Hg] [facility] Work Phone: [facility] 10-16-2022 16:24-0400 Body height 160.02 cm [facility] Work Phone: [facility] 10-16-2022 16:24-0400 Body temperature 97.7 [degF] [facility] Work Phone: [facility] 10-16-2022 16:24-0400 Body weight 105.7 kg [facility] Work Phone: [facility] 10-16-2022 16:24-0400 Diastolic blood pressure 95 mm[Hg] [facility] Work Phone: [facility] 10-16-2022 16:24-0400 Heart rate 82 /min [facility] Work Phone: [facility] 10-16-2022 16:24-0400 Respiratory rate 16 /min [facility] Work Phone: [facility] 10-16-2022 16:24-0400 SaO2% (BldA) [Mass fraction] 96 % [facility] Work Phone: [facility] 10-16-2022 16:24-0400 Systolic blood pressure 122 mm[Hg] [facility] Work Phone: [facility] 10-11-2022 17:34-0400 Body height 160.02 cm [facility] Work Phone: [facility] 10-11-2022 17:34-0400 Body temperature 97.7 [degF] [facility] Work Phone: [facility] 10-11-2022 17:34-0400 Body weight 106.95 kg [facility] Work Phone: [facility] 10-11-2022 17:34-0400 Diastolic blood pressure 82 mm[Hg] [facility] Work Phone: [facility] 10-11-2022 17:34-0400 Heart rate 90 /min [facility] Work Phone: [facility] 10-11-2022 17:34-0400 Respiratory rate 18 /min [facility] Work Phone: [facility] 10-11-2022 17:34-0400 SaO2% (BldA) [Mass fraction] 97 % [facility] Work Phone: [facility] 10-11-2022 17:34-0400 Systolic blood pressure 126 mm[Hg] [facility] Work Phone: [facility] 10-07-2022 12:25-0400 Body height 162.56 cm [facility] Work Phone: [facility] 10-07-2022 12:25-0400 Body temperature 97.7 [degF] [facility] Work Phone: [facility] 10-07-2022 12:25-0400 Body weight 106 kg [facility] Work Phone: [facility] 10-07-2022 12:25-0400 Diastolic blood pressure 81 mm[Hg] [facility] Work Phone: [facility] 10-07-2022 12:25-0400 Heart rate 85 /min [facility] Work Phone: [facility] 10-07-2022 12:25-0400 Respiratory rate 20 /min [facility] Work Phone: [facility] 10-07-2022 12:25-0400 SaO2% (BldA) [Mass fraction] 97 % [facility] Work Phone: [facility] 10-07-2022 12:25-0400 Systolic blood pressure 154 mm[Hg] [facility] Work Phone: [facility] 10-04-2022 18:16-0400 Body height 162.56 cm [facility] Work Phone: [facility] 10-04-2022 18:16-0400 Body temperature 98.1 [degF] [facility] Work Phone: [facility] 10-04-2022 18:16-0400 Body weight 107.2 kg [facility] Work Phone: [facility] 10-04-2022 18:16-0400 Diastolic blood pressure 80 mm[Hg] [facility] Work Phone: [facility] 10-04-2022 18:16-0400 Heart rate 89 /min [facility] Work Phone: [facility] 10-04-2022 18:16-0400 Respiratory rate 18 /min [facility] Work Phone: [facility] 10-04-2022 18:16-0400 SaO2% (BldA) [Mass fraction] 96 % [facility] Work Phone: [facility] 10-04-2022 18:16-0400 Systolic blood pressure 165 mm[Hg] [facility] Work Phone: [facility] 10-02-2022 19:44-0400 Diastolic blood pressure 84 mm[Hg] [facility] Work Phone: [facility] 10-02-2022 19:44-0400 Heart rate 77 /min [facility] Work Phone: [facility] 10-02-2022 19:44-0400 Respiratory rate 20 /min [facility] Work Phone: [facility] 10-02-2022 19:44-0400 Systolic blood pressure 130 mm[Hg] [facility] Work Phone: [facility] 10-02-2022 18:59-0400 Body height 162.56 cm [facility] Work Phone: [facility] 10-02-2022 18:59-0400 Body temperature 98 [degF] [facility] Work Phone: [facility] 10-02-2022 18:59-0400 Body weight 108.8 kg [facility] Work Phone: [facility] 10-02-2022 18:59-0400 SaO2% (BldA) [Mass fraction] 96 % [facility] Work Phone: [facility] 09-28-2022 18:45-0400 Diastolic blood pressure 52 mm[Hg] [facility] Work Phone: [facility] 09-28-2022 18:45-0400 Heart rate 81 /min [facility] Work Phone: [facility] 09-28-2022 18:45-0400 Respiratory rate 20 /min [facility] Work Phone: [facility] 09-28-2022 18:45-0400 SaO2% (BldA) [Mass fraction] 97 % [facility] Work Phone: [facility] 09-28-2022 18:45-0400 Systolic blood pressure 139 mm[Hg] [facility] Work Phone: [facility] 09-28-2022 17:30-0400 Body height 160.02 cm [facility] Work Phone: [facility] 09-28-2022 17:30-0400 Body weight 108.86 kg [facility] Work Phone: [facility] 09-28-2022 17:28-0400 Body temperature 98.1 [degF] [facility] Work Phone: [facility] 09-26-2022 14:00-0400 Body height 162.56 cm Glen Garza Other [facility] [employer] Other 09-26-2022 14:00-0400 Diastolic blood pressure 70 mm[Hg] Glen Garza Other [facility] [employer] Other 09-26-2022 14:00-0400 SaO2% (BldA) [Mass fraction] 97 % Glen Garza Other [employer] Other 09-26-2022 14:00-0400 Systolic blood pressure 140 mm[Hg] Glen Garza Other [employer] Other 09-24-2022 17:58-0400 Body temperature 97.8 [degF] [facility] Work Phone: [facility] 09-24-2022 17:58-0400 Diastolic blood pressure 63 mm[Hg] [facility] Work Phone: [facility] 09-24-2022 17:58-0400 Heart rate 84 /min [facility] Work Phone: [facility] 09-24-2022 17:58-0400 Respiratory rate 20 /min [facility] Work Phone: [facility] 09-24-2022 17:58-0400 SaO2% (BldA) [Mass fraction] 97 % [facility] Work Phone: [facility] 09-24-2022 17:58-0400 Systolic blood pressure 129 mm[Hg] [facility] Work Phone: [facility] 09-24-2022 17:56-0400 Body height 160.02 cm [facility] Work Phone: [facility] 09-24-2022 17:56-0400 Body weight 107 kg [facility] Work Phone: [facility] 09-22-2022 22:23-0400 Body temperature 98.1 [degF] [facility] Work Phone: [facility] 09-22-2022 22:23-0400 Diastolic blood pressure 67 mm[Hg] [facility] Work Phone: [facility] 09-22-2022 22:23-0400 Heart rate 87 /min [facility] Work Phone: [facility] 09-22-2022 22:23-0400 Respiratory rate 24 /min [facility] Work Phone: [facility] 09-22-2022 22:23-0400 SaO2% (BldA) [Mass fraction] 96 % [facility] Work Phone: [facility] 09-22-2022 22:23-0400 Systolic blood pressure 126 mm[Hg] [facility] Work Phone: [facility] 09-22-2022 22:17-0400 Body height 160.02 cm [facility] Work Phone: [facility] 09-22-2022 22:17-0400 Body weight 104.32 kg [facility] Work Phone: [facility] 09-19-2022 12:24-0400 Diastolic blood pressure 70 mm[Hg] [facility] Work Phone: [facility] 09-19-2022 12:24-0400 Heart rate 63 /min [facility] Work Phone: [facility] 09-19-2022 12:24-0400 Respiratory rate 16 /min [facility] Work Phone: [facility] 09-19-2022 12:24-0400 SaO2% (BldA) [Mass fraction] 96 % [facility] Work Phone: [facility] 09-19-2022 12:24-0400 Systolic blood pressure 111 mm[Hg] [facility] Work Phone: [facility] 09-19-2022 11:49-0400 Inhaled oxygen flow rate 3 L/min [facility] Work Phone: [facility] 09-19-2022 10:59-0400 Body height 160.02 cm [facility] Work Phone: [facility] 09-19-2022 10:59-0400 Body weight 104.32 kg [facility] Work Phone: [facility] 09-18-2022 15:42-0400 Body height 160.02 cm [facility] Work Phone: [facility] 09-18-2022 15:42-0400 Body temperature 97.7 [degF] [facility] Work Phone: [facility] 09-18-2022 15:42-0400 Body weight 104.32 kg [facility] Work Phone: [facility] 09-18-2022 15:42-0400 Diastolic blood pressure 80 mm[Hg] [facility] Work Phone: [facility] 09-18-2022 15:42-0400 Heart rate 82 /min [facility] Work Phone: [facility] 09-18-2022 15:42-0400 Respiratory rate 18 /min [facility] Work Phone: [facility] 09-18-2022 15:42-0400 SaO2% (BldA) [Mass fraction] 97 % [facility] Work Phone: [facility] 09-18-2022 15:42-0400 Systolic blood pressure 140 mm[Hg] [facility] Work Phone: [facility] 09-11-2022 14:00-0400 Diastolic blood pressure 71 mm[Hg] [facility] Work Phone: [facility] 09-11-2022 14:00-0400 Heart rate 86 /min [facility] Work Phone: [facility] 09-11-2022 14:00-0400 Respiratory rate 20 /min [facility] Work Phone: [facility] 09-11-2022 14:00-0400 Systolic blood pressure 109 mm[Hg] [facility] Work Phone: [facility] 09-11-2022 12:59-0400 Body height 160.02 cm [facility] Work Phone: [facility] 09-11-2022 12:59-0400 Body temperature 98 [degF] [facility] Work Phone: [facility] 09-11-2022 12:59-0400 Body weight 104.32 kg [facility] Work Phone: [facility] 09-11-2022 12:59-0400 SaO2% (BldA) [Mass fraction] 98 % [facility] Work Phone: [facility] 09-05-2022 15:23-0400 Body height 160.02 cm [facility] Work Phone: [facility] 09-05-2022 15:23-0400 Body temperature 97.9 [degF] [facility] Work Phone: [facility] 09-05-2022 15:23-0400 Body weight 105.25 kg [facility] Work Phone: [facility] 09-05-2022 15:23-0400 Diastolic blood pressure 90 mm[Hg] [facility] Work Phone: [facility] 09-05-2022 15:23-0400 Heart rate 90 /min [facility] Work Phone: [facility] 09-05-2022 15:23-0400 Respiratory rate 20 /min [facility] Work Phone: [facility] 09-05-2022 15:23-0400 SaO2% (BldA) [Mass fraction] 98 % [facility] Work Phone: [facility] 09-05-2022 15:23-0400 Systolic blood pressure 151 mm[Hg] Services [employer] [facility] Work Phone: [facility] 09-04-2022 19:11-0400 Body temperature 98.42 [degF] Pedro Pablo Chance [facility] 09-04-2022 19:11-0400 Diastolic blood pressure 104 mm[Hg] Pedro Pablo Chance [facility] 09-04-2022 19:11-0400 Heart rate 101 /min Pedro Pablo Chance [facility] 09-04-2022 19:11-0400 Respiratory rate 18 /min Pedro Pablo Chance [facility] 09-04-2022 19:11-0400 SaO2% (BldA) [Mass fraction] 100 % Pedro Pablo Chance [facility] 09-04-2022 19:11-0400 Systolic blood pressure 141 mm[Hg] Pedro Pablo Chance [facility] 09-04-2022 10:00-0400 Body height 162.56 cm Glen Garza Other [facility] [employer] Other 09-04-2022 10:00-0400 Body mass index (BMI) [Ratio] 40.16 kg/m2 Glen Garza Other [facility] [employer] Other 09-04-2022 10:00-0400 Body weight 106.14 kg Glen Garza Other [facility] [employer] Other 09-04-2022 10:00-0400 Diastolic blood pressure 70 mm[Hg] Glen Garza Other [facility] [employer] Other 09-04-2022 10:00-0400 SaO2% (BldA) [Mass fraction] 99 % Glen Garza Other [facility] [employer] Other 09-04-2022 10:00-0400 Systolic blood pressure 110 mm[Hg] Glen Garza Other [facility] [employer] Other 09-01-2022 15:00-0400 Body height 162.56 cm [facility] Work Phone: [facility] 09-01-2022 15:00-0400 Body temperature 97.7 [degF] [facility] Work Phone: [facility] 09-01-2022 15:00-0400 Body weight 104 kg [facility] Work Phone: [facility] 09-01-2022 15:00-0400 Diastolic blood pressure 73 mm[Hg] [facility] Work Phone: [facility] 09-01-2022 15:00-0400 Heart rate 96 /min [facility] Work Phone: [facility] 09-01-2022 15:00-0400 Respiratory rate 20 /min [facility] Work Phone: [facility] 09-01-2022 15:00-0400 SaO2% (BldA) [Mass fraction] 100 % [facility] Work Phone: [facility] 09-01-2022 15:00-0400 Systolic blood pressure 132 mm[Hg] [facility] Work Phone: [facility] 08-31-2022 20:05-0400 Body height 160.02 cm [facility] Work Phone: [facility] 08-31-2022 20:05-0400 Body temperature 97.8 [degF] [facility] Work Phone: [facility] 08-31-2022 20:05-0400 Body weight 103.7 kg [facility] Work Phone: [facility] 08-31-2022 20:05-0400 Diastolic blood pressure 76 mm[Hg] [facility] Work Phone: [facility] 08-31-2022 20:05-0400 Heart rate 94 /min [facility] Work Phone: [facility] 08-31-2022 20:05-0400 Respiratory rate 18 /min [facility] Work Phone: [facility] 08-31-2022 20:05-0400 SaO2% (BldA) [Mass fraction] 98 % [facility] Work Phone: [facility] 08-31-2022 20:05-0400 Systolic blood pressure 134 mm[Hg] [facility] Work Phone: [facility] 08-26-2022 15:35-0400 Body height 160.02 cm [facility] Work Phone: [facility] 08-26-2022 15:35-0400 Body temperature 98.1 [degF] [facility] Work Phone: [facility] 08-26-2022 15:35-0400 Body weight 104.6 kg [facility] Work Phone: [facility] 08-26-2022 15:35-0400 Diastolic blood pressure 59 mm[Hg] [facility] Work Phone: [facility] 08-26-2022 15:35-0400 Heart rate 94 /min [facility] Work Phone: [facility] 08-26-2022 15:35-0400 Respiratory rate 18 /min [facility] Work Phone: [facility] 08-26-2022 15:35-0400 SaO2% (BldA) [Mass fraction] 99 % [facility] Work Phone: [facility] 08-26-2022 15:35-0400 Systolic blood pressure 119 mm[Hg] [facility] Work Phone: [facility] 08-21-2022 08:40-0400 Body height 162.56 cm Rose Marie Shepherd Other [employer] Other 08-21-2022 08:40-0400 Body mass index (BMI) [Ratio] 40.16 kg/m2 Rose Marie Shepherd Other [employer] Other 08-21-2022 08:40-0400 Body weight 106.14 kg Rose Marie Shepherd Other [employer] Other 08-21-2022 08:40-0400 Diastolic blood pressure 78 mm[Hg] Rose Marie Shepherd Other [employer] Other 08-21-2022 08:40-0400 Systolic blood pressure 132 mm[Hg] Rose Marie Shepherd Other [employer] Other 08-17-2022 00:19-0400 Diastolic blood pressure 62 mm[Hg] [facility] Work Phone: [facility] 08-17-2022 00:19-0400 Heart rate 75 /min [facility] Work Phone: [facility] 08-17-2022 00:19-0400 Respiratory rate 20 /min [facility] Work Phone: [facility] 08-17-2022 00:19-0400 SaO2% (BldA) [Mass fraction] 97 % [facility] Work Phone: [facility] 08-17-2022 00:19-0400 Systolic blood pressure 127 mm[Hg] [facility] Work Phone: [facility] 08-16-2022 21:20-0400 Body height 160.02 cm [facility] Work Phone: [facility] 08-16-2022 21:20-0400 Body temperature 97.9 [degF] [facility] Work Phone: [facility] 08-16-2022 21:20-0400 Body weight 104.32 kg [facility] Work Phone: [facility] 08-13-2022 17:20-0400 Body height 160.02 cm [facility] Work Phone: [facility] 08-13-2022 17:20-0400 Body temperature 97.8 [degF] [facility] Work Phone: [facility] 08-13-2022 17:20-0400 Body weight 102.85 kg [facility] Work Phone: [facility] 08-13-2022 17:20-0400 Diastolic blood pressure 81 mm[Hg] [facility] Work Phone: [facility] 08-13-2022 17:20-0400 Heart rate 92 /min [facility] Work Phone: [facility] 08-13-2022 17:20-0400 Respiratory rate 20 /min [facility] Work Phone: [facility] 08-13-2022 17:20-0400 SaO2% (BldA) [Mass fraction] 96 % [facility] Work Phone: [facility] 08-13-2022 17:20-0400 Systolic blood pressure 140 mm[Hg] [facility] Work Phone: [facility] 08-06-2022 17:12-0400 Body height 160.02 cm [facility] Work Phone: [facility] 08-06-2022 17:12-0400 Body temperature 97.7 [degF] [facility] Work Phone: [facility] 08-06-2022 17:12-0400 Body weight 103.3 kg [facility] Work Phone: [facility] 08-06-2022 17:12-0400 Diastolic blood pressure 76 mm[Hg] [facility] Work Phone: [facility] 08-06-2022 17:12-0400 Heart rate 78 /min [facility] Work Phone: [facility] 08-06-2022 17:12-0400 Respiratory rate 20 /min [facility] Work Phone: [facility] 08-06-2022 17:12-0400 SaO2% (BldA) [Mass fraction] 98 % [facility] Work Phone: [facility] 08-06-2022 17:12-0400 Systolic blood pressure 130 mm[Hg] [facility] Work Phone: [facility] 08-02-2022 21:20-0400 Body height 160.02 cm [facility] Work Phone: [facility] 08-02-2022 21:20-0400 Body temperature 97.6 [degF] [facility] Work Phone: [facility] 08-02-2022 21:20-0400 Body weight 104.55 kg [facility] Work Phone: [facility] 08-02-2022 21:20-0400 Diastolic blood pressure 84 mm[Hg] [facility] Work Phone: [facility] 08-02-2022 21:20-0400 Heart rate 74 /min [facility] Work Phone: [facility] 08-02-2022 21:20-0400 Respiratory rate 22 /min [facility] Work Phone: [facility] 08-02-2022 21:20-0400 SaO2% (BldA) [Mass fraction] 97 % [facility] Work Phone: [facility] 08-02-2022 21:20-0400 Systolic blood pressure 174 mm[Hg] [facility] Work Phone: [facility] 06-16-2022 12:24-0400 Body height 160.02 cm [facility] Work Phone: [facility] 06-16-2022 12:24-0400 Body temperature 97.5 [degF] [facility] Work Phone: [facility] 06-16-2022 12:24-0400 Body weight 104 kg [facility] Work Phone: [facility] 06-16-2022 12:24-0400 Diastolic blood pressure 68 mm[Hg] [facility] Work Phone: [facility] 06-16-2022 12:24-0400 Heart rate 69 /min [facility] Work Phone: [facility] 06-16-2022 12:24-0400 Respiratory rate 20 /min [facility] Work Phone: [facility] 06-16-2022 12:24-0400 SaO2% (BldA) [Mass fraction] 97 % [facility] Work Phone: [facility] 06-16-2022 12:24-0400 Systolic blood pressure 151 mm[Hg] [facility] Work Phone: [facility] 03-30-2022 13:10-0500 Diastolic blood pressure 60 mm[Hg] [facility] Work Phone: [facility] 03-30-2022 13:10-0500 Heart rate 79 /min [facility] Work Phone: [facility] 03-30-2022 13:10-0500 Respiratory rate 18 /min [facility] Work Phone: [facility] 03-30-2022 13:10-0500 SaO2% (BldA) [Mass fraction] 98 % [facility] Work Phone: [facility] 03-30-2022 13:10-0500 Systolic blood pressure 118 mm[Hg] [facility] Work Phone: [facility] 03-30-2022 10:09-0500 Body height 160.02 cm [facility] Work Phone: [facility] 03-30-2022 10:09-0500 Body temperature 98.3 [degF] [facility] Work Phone: [facility] 03-30-2022 10:09-0500 Body weight 107.95 kg [facility] Work Phone: [facility] 03-19-2022 18:13-0500 Diastolic blood pressure 64 mm[Hg] [facility] Work Phone: [facility] 03-19-2022 18:13-0500 Heart rate 51 /min [facility] Work Phone: [facility] 03-19-2022 18:13-0500 Respiratory rate 20 /min [facility] Work Phone: [facility] 03-19-2022 18:13-0500 SaO2% (BldA) [Mass fraction] 97 % [facility] Work Phone: [facility] 03-19-2022 18:13-0500 Systolic blood pressure 121 mm[Hg] [facility] Work Phone: [facility] 03-19-2022 14:37-0500 Body height 160.02 cm [facility] Work Phone: [facility] 03-19-2022 14:37-0500 Body temperature 97.5 [degF] [facility] Work Phone: [facility] 03-19-2022 14:37-0500 Body weight 108.25 kg [facility] Work Phone: [facility] 03-17-2022 18:14-0500 Diastolic blood pressure 79 mm[Hg] [facility] Work Phone: [facility] 03-17-2022 18:14-0500 Heart rate 79 /min [facility] Work Phone: [facility] 03-17-2022 18:14-0500 Respiratory rate 19 /min [facility] Work Phone: [facility] 03-17-2022 18:14-0500 SaO2% (BldA) [Mass fraction] 98 % [facility] Work Phone: [facility] 03-17-2022 18:14-0500 Systolic blood pressure 118 mm[Hg] [facility] Work Phone: [facility] 03-17-2022 14:45-0500 Body height 160.02 cm [facility] Work Phone: [facility] 03-17-2022 14:45-0500 Body temperature 97.9 [degF] [facility] Work Phone: [facility] 03-17-2022 14:45-0500 Body weight 108.85 kg [facility] Work Phone: [facility] 03-14-2022 19:09-0500 Diastolic blood pressure 61 mm[Hg] [facility] Work Phone: [facility] 03-14-2022 19:09-0500 Heart rate 61 /min [facility] Work Phone: [facility] 03-14-2022 19:09-0500 Respiratory rate 16 /min [facility] Work Phone: [facility] 03-14-2022 19:09-0500 SaO2% (BldA) [Mass fraction] 96 % [facility] Work Phone: [facility] 03-14-2022 19:09-0500 Systolic blood pressure 111 mm[Hg] [facility] Work Phone: [facility] 03-14-2022 15:23-0500 Body height 160.02 cm [facility] Work Phone: [facility] 03-14-2022 15:23-0500 Body temperature 97.4 [degF] [facility] Work Phone: [facility] 03-14-2022 15:23-0500 Body weight 108.3 kg [facility] Work Phone: [facility] 02-03-2022 21:30-0500 Body temperature 97.9 [degF] [facility] Work Phone: [facility] 02-03-2022 21:30-0500 Diastolic blood pressure 87 mm[Hg] [facility] Work Phone: [facility] 02-03-2022 21:30-0500 Heart rate 70 /min [facility] Work Phone: [facility] 02-03-2022 21:30-0500 Respiratory rate 16 /min [facility] Work Phone: [facility] 02-03-2022 21:30-0500 SaO2% (BldA) [Mass fraction] 99 % [facility] Work Phone: [facility] 02-03-2022 21:30-0500 Systolic blood pressure 142 mm[Hg] [facility] Work Phone: [facility] 02-03-2022 17:12-0500 Body height 163.83 cm [facility] Work Phone: [facility] 02-03-2022 17:12-0500 Body weight 110 kg [facility] Work Phone: [facility] 01-21-2022 20:16-0400 Body height 160.02 cm [facility] Work Phone: [facility] 01-21-2022 20:16-0400 Body temperature 98.2 [degF] [facility] Work Phone: [facility] 01-21-2022 20:16-0400 Body weight 111.25 kg [facility] Work Phone: [facility] 01-21-2022 20:16-0400 Diastolic blood pressure 77 mm[Hg] [facility] Work Phone: [facility] 01-21-2022 20:16-0400 Heart rate 107 /min [facility] Work Phone: [facility] 01-21-2022 20:16-0400 Respiratory rate 22 /min [facility] Work Phone: [facility] 01-21-2022 20:16-0400 SaO2% (BldA) [Mass fraction] 98 % [facility] Work Phone: [facility] 01-21-2022 20:16-0400 Systolic blood pressure 134 mm[Hg] [facility] Work Phone: [facility] 11-14-2021 00:54-0400 Diastolic blood pressure 70 mm[Hg] [facility] Work Phone: [facility] 11-14-2021 00:54-0400 Heart rate 81 /min [facility] Work Phone: [facility] 11-14-2021 00:54-0400 Respiratory rate 20 /min [facility] Work Phone: [facility] 11-14-2021 00:54-0400 SaO2% (BldA) [Mass fraction] 99 % [facility] Work Phone: [facility] 11-14-2021 00:54-0400 Systolic blood pressure 122 mm[Hg] [facility] Work Phone: [facility] 11-13-2021 18:29-0400 Body height 160.02 cm [facility] Work Phone: [facility] 11-13-2021 18:29-0400 Body temperature 97.6 [degF] [facility] Work Phone: [facility] 11-13-2021 18:29-0400 Body weight 108.86 kg [facility] Work Phone: [facility] 10-18-2021 20:30-0400 Body height 160.02 cm [facility] Work Phone: [facility] 10-18-2021 20:30-0400 Body temperature 98 [degF] [facility] Work Phone: [facility] 10-18-2021 20:30-0400 Body weight 109.6 kg [facility] Work Phone: [facility] 10-18-2021 20:30-0400 Diastolic blood pressure 89 mm[Hg] [facility] Work Phone: [facility] 10-18-2021 20:30-0400 Heart rate 87 /min [facility] Work Phone: [facility] 10-18-2021 20:30-0400 Respiratory rate 22 /min [facility] Work Phone: [facility] 10-18-2021 20:30-0400 SaO2% (BldA) [Mass fraction] 99 % [facility] Work Phone: [facility] 10-18-2021 20:30-0400 Systolic blood pressure 149 mm[Hg] [facility] Work Phone: [facility] 10-10-2021 01:28-0400 Diastolic blood pressure 71 mm[Hg] [facility] Work Phone: [facility] 10-10-2021 01:28-0400 Heart rate 70 /min [facility] Work Phone: [facility] 10-10-2021 01:28-0400 Respiratory rate 18 /min [facility] Work Phone: [facility] 10-10-2021 01:28-0400 SaO2% (BldA) [Mass fraction] 98 % [facility] Work Phone: [facility] 10-10-2021 01:28-0400 Systolic blood pressure 159 mm[Hg] [facility] Work Phone: [facility] 10-09-2021 20:44-0400 Body height 160.02 cm [facility] Work Phone: [facility] 10-09-2021 20:44-0400 Body mass index (BMI) [Ratio] 42.5 kg/m2 [facility] Work Phone: [facility] 10-09-2021 20:44-0400 Body temperature 98.2 [degF] [facility] Work Phone: [facility] 10-09-2021 20:44-0400 Body weight 108.86 kg [facility] Work Phone: [facility] 09-13-2021 18:42-0400 Heart rate 93 /min [facility] Work Phone: [facility] 09-13-2021 17:16-0400 Body height 160.02 cm [facility] Work Phone: [facility] 09-13-2021 17:16-0400 Body mass index (BMI) [Ratio] 42.7 kg/m2 [facility] [employer] [facility] Work Phone: [facility] 09-13-2021 17:16-0400 Body temperature 98.5 [degF] [facility] Work Phone: [facility] 09-13-2021 17:16-0400 Body weight 109.45 kg [facility] Work Phone: [facility] 09-13-2021 17:16-0400 Diastolic blood pressure 78 mm[Hg] [facility] Work Phone: [facility] 09-13-2021 17:16-0400 Respiratory rate 20 /min Services [facility] Work Phone: [facility] 09-13-2021 17:16-0400 SaO2% (BldA) [Mass fraction] 96 % Services [facility] Work Phone: [facility] 09-13-2021 17:16-0400 Systolic blood pressure 136 mm[Hg] Services [facility] [employer] Work Phone: [facility] 03-30-2021 10:30-0500 Body height 162.56 cm Avery Goodman Other [employer] Other Encounters Encounter Date Encounter Type Care Provider Facility Start: 12-18-2023 Emergency department patient visit NO ASSIGNED PCP GENERIC PROVIDER [facility] Start: 12-15-2023 End: 12-15-2023 Emergency department patient visit NO ASSIGNED PCP GENERIC PROVIDER [facility] Start: 12-13-2023 End: 12-13-2023 Emergency department patient visit NO ASSIGNED PCP GENERIC PROVIDER [facility] Start: 12-13-2023 End: 12-13-2023 Emergency department patient visit Jorge Mcintosh [facility] Start: 12-13-2023 End: 12-13-2023 ambulatory ELKE ADAMS [facility] Start: 12-12-2023 End: 12-12-2023 Emergency department patient visit Services [facility] [employer] Work Phone: [facility] Work Phone: Start: 12-11-2023 End: 12-11-2023 Emergency department patient visit NO ASSIGNED PCP GENERIC PROVIDER [facility] Start: 12-10-2023 End: 12-10-2023 Emergency department patient visit ROBERTO APARICIO [facility] Start: 12-09-2023 End: 12-10-2023 Emergency department patient visit FELICE VELIZ [facility] Start: 12-09-2023 End: 12-09-2023 Emergency department patient visit FELICE VELIZ [facility] Start: 12-07-2023 End: 12-07-2023 Emergency department patient visit DOUG KARLIENANCYJOANA [facility] Start: 12-07-2023 End: 12-07-2023 Emergency department patient visit FELICE VELIZ [facility] Start: 12-06-2023 End: 12-07-2023 Emergency department patient visit CRISTOBAL MAYORGAER [facility] Start: 12-06-2023 End: 12-06-2023 ambulatory ELKE A [facility] Start: 12-05-2023 End: 12-05-2023 Emergency department patient visit Balbina Bryant Facility:[facility] Start: 12-04-2023 End: 12-04-2023 Emergency department patient visit Ben Urbina MD Work Phone: [facility] Start: 12-01-2023 End: 12-02-2023 Emergency department patient visit [facility] Work Phone: [facility] Work Phone: Start: 12-01-2023 End: 12-01-2023 Emergency department patient visit Balbina Bryant [facility] Start: 11-29-2023 End: 11-29-2023 ambulatory ELKE Ellsworth [facility] Start: 11-27-2023 End: 11-27-2023 Emergency department patient visit Balbina Bryant [facility] [facility] Start: 11-26-2023 End: 11-27-2023 Emergency department patient visit No PCP Facility:[facility] Start: 11-26-2023 End: 11-26-2023 Emergency department patient visit Cheyanne HORVATH Facility:[facility] Start: 11-25-2023 End: 11-25-2023 Emergency department patient visit Services [employer] [facility] Work Phone: [facility] Work Phone: Start: 11-24-2023 End: 11-24-2023 Emergency department patient visit Balbina Starreduard [facility] Start: 11-22-2023 End: 11-22-2023 ambulatory ELKE Ellsworth [facility] Start: 11-13-2023 End: 11-13-2023 Evaluation and management of inpatient CRISTOBAL PHOENIX [facility] Start: 11-13-2023 End: 11-19-2023 Evaluation and management of inpatient NO ASSIGNED PCP GENERIC PROVIDER [facility] Start: 11-10-2023 End: 11-10-2023 Emergency department patient visit Services [employer] [facility] Work Phone: [facility] Work Phone: Start: 11-09-2023 End: 11-09-2023 Emergency department patient visit NO ASSIGNED PCP GENERIC PROVIDER [facility] Start: 11-09-2023 End: 11-09-2023 Emergency department patient visit NO ASSIGNED PCP GENERIC PROVIDER [facility] Start: 11-08-2023 End: 11-08-2023 ambulatory ELKE Ellsworth [facility] Start: 11-08-2023 End: 11-08-2023 ambulatory CHIRAG REYNOSO [facility] Start: 11-06-2023 End: 11-06-2023 ambulatory [facility] Start: 11-06-2023 End: 11-06-2023 Encounter for other preprocedural examination [place] [facility] Start: 11-05-2023 End: 11-05-2023 Emergency department patient visit Pedro Pablo Fletcher [facility] Start: 11-05-2023 End: 11-05-2023 ambulatory NO ASSIGNED PCP GENERIC PROVIDER [facility] Start: 11-02-2023 End: 11-02-2023 Emergency department patient visit Physician Unavailable Facility:[facility] Start: 10-31-2023 End: 11-01-2023 ambulatory WICHO TUBBS [facility] Start: 10-30-2023 End: 10-31-2023 Emergency department patient visit Aaliyah Fischer DO Work Phone: [facility] Comment on above: Infection of superfi cial incisional surgical site after procedure, initial encounter (Primary Dx) Start: 10-30-2023 End: 10-30-2023 Emergency department patient visit Alexute Sparks Annette [facility] Start: 10-26-2023 End: 10-26-2023 Emergency department patient visit Pedro Pablo Fletcher [facility] Start: 10-25-2023 End: 10-25-2023 ambulatory ELKE Ellsworth [facility] Start: 10-19-2023 End: 10-19-2023 Emergency department patient visit Services [employer] Work Phone: [facility] Work Phone: Start: 10-11-2023 End: 10-16-2023 Evaluation and management of inpatient NO ASSIGNED PCP GENERIC PROVIDER [facility] Start: 10-11-2023 Evaluation and management of inpatient ELKE A [facility] Start: 10-11-2023 End: 10-11-2023 ambulatory ELKE A [facility] Start: 10-05-2023 End: 10-06-2023 Emergency department patient visit NO ASSIGNED PCP GENERIC PROVIDER [facility] Start: 10-05-2023 End: 10-05-2023 Emergency department patient visit Services [employer] Work Phone: [facility] Work Phone: Start: 10-05-2023 End: 10-05-2023 Emergency department patient visit Cheyanne Ralph HORVATH Facility:[facility] Start: 10-04-2023 End: 10-04-2023 Emergency department patient visit Jorge Mcintosh [facility] Start: 09-26-2023 End: 09-26-2023 Emergency department patient visit Daryl Cullen Facility:[facility] Start: 09-25-2023 End: 09-25-2023 Emergency department patient visit Balbina Bryant [facility] Start: 09-21-2023 End: 09-21-2023 Emergency department patient visit Nikhil Tubbs [facility] Start: 09-20-2023 End: 09-20-2023 Emergency department patient visit Jorge Mcintosh [facility] Start: 09-19-2023 End: 09-19-2023 Emergency department patient visit NO ASSIGNED PCP GENERIC PROVIDER [facility] Start: 09-18-2023 ambulatory ELKE ADAMS [facility] Start: 09-17-2023 End: 09-17-2023 ambulatory Dax Lira Facility: [place] Start: 09-17-2023 End: 09-17-2023 Patient encounter procedure Dax Lira [facility] Start: 09-16-2023 End: 09-16-2023 Emergency department patient visit NO ASSIGNED PCP GENERIC PROVIDER [facility] Start: 09-16-2023 End: 09-16-2023 ambulatory NO ASSIGNED PCP GENERIC PROVIDER [facility] Start: 09-11-2023 End: 09-11-2023 ambulatory Ashia Ruiz Facility:[facility] Start: 09-11-2023 End: 09-11-2023 Patient encounter procedure Ashia M Joseph [facility] Start: 09-10-2023 End: 09-10-2023 Emergency department patient visit Benja Mishra DO Work Phone: [facility] Comment on above: Strain of lumbar reg ion, initial encounter (Primary Dx) Start: 09-09-2023 End: 09-09-2023 Emergency department patient visit Jorge Mcintosh [facility] Start: 09-08-2023 End: 09-08-2023 Emergency department patient visit Services Family [facility] Work Phone: [facility] Work Phone: Start: 09-06-2023 End: 09-06-2023 Emergency department patient visit Pedro Pablo Fletcher [facility] Start: 09-02-2023 End: 09-02-2023 Emergency department patient visit Jorge Mcintosh [facility] Start: 08-30-2023 End: 08-30-2023 Emergency department patient visit Nikhil Tubbs [facility] Start: 08-27-2023 End: 08-27-2023 ambulatory CHIRAG REYNOSO [facility] Start: 08-27-2023 End: 08-27-2023 Postop follow up visit related to original px Chirag Reynoso 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 Work 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: [facility] Comment on above: Chronic back pain gr eater than 3 months duration (Primary Dx); Neuropathic pain Start: 08-21-2023 End: 08-21-2023 ambulatory ELKE ADAMS [facility] Start: 08-21-2023 End: 08-21-2023 Subsequent hospital visit by physician Elke Adams MD Work Phone: [facility] [place] Comment on above: Chronic back pain gr eater than 3 months duration (Primary Dx); Neuropathic pain; Continuous opioid dependence (Multi) Start: 08-17-2023 End: 08-17-2023 Emergency department patient visit Cheyanne Rosas INSTRUCTOR [employer] Facility:[facility] Start: 08-16-2023 End: 08-16-2023 Emergency department patient visit Physician Unavailable Facility:[facility] Start: 08-15-2023 End: 08-16-2023 Emergency department patient visit Balbina Finleyzander [facility] Start: 08-14-2023 End: 08-14-2023 ambulatory Cheyanne Rosas Facility:[facility] Start: 08-14-2023 End: 08-14-2023 Pain Management Domenic Sher [facility] Start: 08-12-2023 End: 08-12-2023 Emergency department patient visit Elisa Sánchez [facility] Start: 08-09-2023 End: 08-09-2023 Emergency department patient visit Keke Payne MD Work Phone: [facility] Start: 08-07-2023 End: 08-07-2023 ambulatory Ashia Nguyen Joseph Facility:[facility] Start: 08-07-2023 End: 08-07-2023 Patient encounter procedure Ashia Wendy Joseph [facility] Start: 08-05-2023 End: 08-05-2023 Emergency department patient visit Pedro Pablo Fletcher [facility] Start: 08-02-2023 End: 08-02-2023 Emergency department patient visit Nikhil Tubbs [facility] Start: 08-02-2023 End: 08-02-2023 ambulatory ELKE ADAMS [facility] Start: 08-02-2023 End: 08-02-2023 Encounter for other preprocedural examination ELKE ADAMS [facility] Start: 07-31-2023 End: 07-31-2023 Emergency department patient visit Balbina Bryant [facility] Start: 07-26-2023 End: 07-26-2023 ambulatory SLIME SHERWOOD [facility] Start: 07-26-2023 End: 07-26-2023 Emergency department patient visit Jorge Rodrigueze [facility] Start: 07-20-2023 End: 07-20-2023 Emergency department patient visit Nikhil Tubbs Facility:[facility] Start: 07-17-2023 ambulatory Balbina Bryant Facility :[facility] Start: 07-17-2023 End: 07-17-2023 ambulatory Cheyanne Rosas Facility:[facility] Start: 07-17-2023 End: 07-17-2023 Patient encounter procedure Cheyanne Rosas [facility] Start: 07-17-2023 End: 07-17-2023 Well adult monitoring check done Cheyanne Rosas [facility] Start: 07-15-2023 End: 07-15-2023 ambulatory XXXX NONE Facility:[facility] Start: 07-15-2023 End: 07-15-2023 Pain Management Dory Shepherd [facility] Start: 07-14-2023 End: 07-14-2023 Emergency department patient visit Nikhil Tubbs [facility] Start: 07-11-2023 ambulatory Balbina Bryant Facility :[facility] Start: 07-11-2023 End: 07-11-2023 Emergency department patient visit Balbina Bryant [facility] Start: 07-08-2023 End: 07-08-2023 [facility] Start: 07-08-2023 End: 07-08-2023 Telemedicine consultation with patient Declan Del Angel PhD Work Phone: [facility] Comment on above: 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 Start: 07-04-2023 End: 07-04-2023 Emergency department patient visit [facility] Work Phone: [facility] Work Phone: Start: 06-29-2023 End: 06-29-2023 Emergency department patient visit Nikhil Tubbs [facility] Start: 06-27-2023 End: 06-27-2023 Emergency department patient visit Nikhil Tubbs [facility] Start: 06-26-2023 End: 06-26-2023 Emergency department patient visit ELIZABETH Ferrell Work Phone: [facility] Work Phone: Start: 06-24-2023 End: 06-24-2023 [facility] Start: 06-22-2023 End: 06-22-2023 ambulatory [facility] Facility:[facility] Start: 06-22-2023 End: 06-22-2023 Emergency department patient visit Nikhil Tubbs [facility] Start: 06-22-2023 End: 06-22-2023 ambulatory Sherron CHAUDHARI Facility:[facility] Start: 06-17-2023 End: 06-17-2023 ambulatory SLIME Pepe APRIL [facility] Start: 06-15-2023 End: 06-15-2023 Emergency department patient visit Balbina Bryant [facility] Start: 06-15-2023 End: 06-15-2023 Emergency department patient visit NO ASSIGNED PCP GENERIC PROVIDER [facility] Comment on above: Chronic back pain, u nspecified back location, unspecified back pain laterality (Primary Dx) Start: 06-11-2023 End: 06-11-2023 Emergency department patient visit Elisa Sánchez [facility] Start: 06-08-2023 End: 06-08-2023 Emergency department patient visit Allyson Nicole DO Work Phone: [facility] Start: 06-05-2023 End: 06-05-2023 ambulatory ELKE ADAMS [facility] Start: 06-05-2023 End: 06-05-2023 Office outpatient new 45 minutes Elke Adams MD Work Phone: [facility] Comment on above: Chronic back pain gr eater than 3 months duration (Primary Dx); Neuropathic pain Start: 06-03-2023 End: 06-03-2023 Emergency department patient visit Jorge Mcintosh [facility] Start: 06-01-2023 End: 06-01-2023 Emergency department patient visit ELIZABETH Ferrell Work Phone: [facility] Work Phone: Start: 05-31-2023 End: 05-31-2023 Emergency department patient visit Jorge Mcintosh [facility] Start: 05-26-2023 End: 05-26-2023 Emergency department patient visit Pedro Pablo Fletcher [facility] Start: 05-25-2023 End: 05-25-2023 Emergency department patient visit OTHER SALES SUPPORT WORKER Joshua Carranzamond Work Phone: [facility] Work Phone: Start: 05-24-2023 End: 05-24-2023 Emergency department patient visit Nikhil Tubbs [facility] Start: 05-20-2023 End: 05-21-2023 ambulatory [facility] Start: 05-20-2023 End: 05-20-2023 Office outpatient new 45 minutes [facility] Work Phone: [facility] Comment on above: [facility] arthritis (Prima ry Dx); Right wrist pain Start: 05-19-2023 End: 05-19-2023 Emergency department patient visit PHYSICIAN NO [facility] Work Phone: Start: 05-16-2023 End: 05-16-2023 Emergency department patient visit Nikhil Tubbs [facility] Start: 05-15-2023 End: 05-15-2023 ambulatory PHYSICIAN NO [facility] Work Phone: Start: 05-15-2023 End: 05-15-2023 Patient encounter procedure PHYSICIAN NO [facility] Work Phone: Start: 05-14-2023 End: 05-14-2023 Emergency department patient visit Jorge Mcintosh [facility] Start: 05-12-2023 End: 05-12-2023 Emergency department patient visit Nikhil Tubbs [facility] Start: 05-11-2023 End: 05-11-2023 Emergency department patient visit Jorge Mcintosh [facility] Start: 05-08-2023 End: 05-08-2023 Emergency department patient visit Balbina Starreduard [facility] Start: 05-05-2023 End: 05-05-2023 Emergency department patient visit PHYSICIAN YENNI BLAIR [facility] Work Phone: Start: 05-04-2023 End: 05-04-2023 Emergency department patient visit DO Pedro Pablo Fletcher Facility:[facility] Start: 05-03-2023 End: 05-03-2023 Emergency department patient visit ANTONIO [facility] Start: 04-30-2023 End: 04-30-2023 Emergency department patient visit Jorge Mcintosh Facility:[facility] Start: 04-27-2023 End: 04-28-2023 Emergency department patient visit Sal Juarez MD Work Phone: [facility] Start: 04-26-2023 End: 04-26-2023 Emergency department patient visit Balbina Starreduard [facility] Start: 04-22-2023 End: 04-22-2023 Emergency department patient visit Pedro Pablo Fletcher [facility] Start: 04-19-2023 End: 04-19-2023 ambulatory CHIDI [facility] Start: 04-12-2023 End: 04-12-2023 Emergency department patient visit [facility] Work Phone: Start: 04-11-2023 End: 04-11-2023 Emergency department patient visit Balbina Bryant [facility] Start: 04-10-2023 End: 04-11-2023 Emergency department patient visit Pedro Pablo Fletcher [facility] Start: 04-08-2023 End: 04-08-2023 Emergency department patient visit Dory Castañeda PA-C Facility:[facility] Start: 04-05-2023 End: 04-05-2023 Emergency department patient visit Nikhil Tubbs [facility] Start: 04-02-2023 End: 04-02-2023 Emergency department patient visit Elisa Sánchez [facility] Start: 04-01-2023 End: 04-01-2023 Office consultation new/estab patient 60 min Chidi Joseph MD Work Phone: [facility] Comment on above: Continuous opioid de pendence (CMS/HCC) (Primary Dx); Chronic hepatitis C without hepatic coma (CMS/HCC) Start: 04-01-2023 End: 04-01-2023 ambulatory ANTONIO [facility] Start: 03-29-2023 End: 03-29-2023 Emergency department patient visit ELIZABETH Veliz Work Phone: [facility] Work Phone: Start: 03-26-2023 End: 03-26-2023 Emergency department patient visit Jorge Mcintosh [facility] Start: 2023 End: 2023 Emergency department patient visit ELIZABETH Veliz Work Phone: [facility] Work Phone: Start: 03-23-2023 End: 03-23-2023 Emergency department patient visit Nikhil NguyenAdrien Tubbs [facility] Start: 03-20-2023 End: 03-20-2023 Emergency department patient visit Elisa Sánchez [facility] Start: 03-11-2023 End: 03-11-2023 Emergency department patient visit Balbina Bryant [facility] Start: 03-09-2023 End: 03-09-2023 Emergency department patient visit PHYSICIAN YENNI BLAIR [facility] Work Phone: Start: 02-22-2023 ambulatory Balbina Bryant Facility :[facility] Start: 02-21-2023 End: 02-21-2023 Emergency department patient visit Services [facility] Work Phone: [facility] Work Phone: Start: 02-13-2023 End: 02-13-2023 Subsequent hospital visit by physician [address] Comment on above: Chronic hepatitis C without hepatic coma (CMS/HCC) Start: 02-13-2023 End: 02-13-2023 ambulatory [facility] Start: 02-12-2023 End: 02-12-2023 Emergency department patient visit Pedro Pablo Fletcher [facility] Start: 02-08-2023 End: 02-08-2023 Emergency department patient visit Services [facility] Work Phone: [facility] Work Phone: Start: 02-07-2023 End: 02-07-2023 Emergency department patient visit Elisa Sánchez [facility] Start: 02-04-2023 End: 02-04-2023 Emergency department patient visit Services Family [facility] Work Phone: [facility] Work Phone: Start: 02-02-2023 End: 02-02-2023 Emergency department patient visit Services [facility] Work Phone: [facility] Work Phone: Start: 01-29-2023 End: 01-29-2023 Emergency department patient visit Jorge Mcintosh [facility] Start: 01-28-2023 End: 01-28-2023 ambulatory Joe Meza Other [employer] Other Start: 01-28-2023 Telephone encounter Joe Meza [facility] [employer] Start: 01-27-2023 End: 01-27-2023 Emergency department patient visit Services [facility] Work Phone: [facility] Work Phone: Start: 01-23-2023 End: 01-23-2023 Emergency department patient visit Services [facility] Work Phone: [facility] Work Phone: Start: 01-22-2023 End: 01-22-2023 Emergency department patient visit Balbina Bryant [facility] Start: 01-22-2023 End: 01-22-2023 ambulatory JORI CAM [facility] Ambulatory Start: 01-22-2023 End: 01-22-2023 Office outpatient new 30 minutes Jori Cam MD PhD Work Phone: [facility] Comment on above: Chronic low back marily n, unspecified back pain laterality, unspecified whether sciatica present (Primary Dx) Start: 01-15-2023 End: 01-15-[address] [facility] Amb[facility] Start: 01-15-2023 End: 01-15-2023 Office outpatient new 45 minutes Antonio Nguyen [facility] PA-C Work Phone: [facility] Comment on above: Encounter for screen ing mammogram for breast cancer (Primary Dx); Recurrent major depressive disorder, in full remission (CMS/HCC); Herniation of intervertebral disc between L4 and L5; Lumbar radiculopathy; Chronic hepatitis C without hepatic coma (CMS/HCC); Chronic, continuous use of opioids; Controlled substance agreement signed Start: 01-14-2023 End: 01-14-2023 Emergency department patient visit Jorge Mcintosh [facility] Start: 01-12-2023 End: 01-12-2023 Emergency department patient visit Balbina Starreduard [facility] Start: 01-12-2023 End: 01-12-2023 Emergency department patient visit Services [employer] Work Phone: [facility] Work Phone: Start: 01-11-2023 End: 01-11-2023 Emergency department patient visit Services [employer] Work Phone: [facility] Work Phone: Start: 01-10-2023 End: 01-10-2023 ambulatory Joe Meza Other [facility] [employer] Other Start: 01-10-2023 Office outpatient vi sit 15 minutes Joe Meza [facility] Start: 01-10-2023 End: 01-10-2023 Emergency department patient visit Nikhil Tubbs [facility] Start: 01-07-2023 End: 01-07-2023 Emergency department patient visit Services [facility] Work Phone: [facility] Work Phone: Start: 01-04-2023 End: 01-05-2023 Emergency department patient visit Balbina Bryant [facility] Start: 01-04-2023 End: 01-04-2023 Emergency department patient visit Services [employer] [facility] Work Phone: [facility] Work Phone: Start: 01-02-2023 End: 01-02-2023 Emergency department patient visit Nikhil Tubbs [facility] Start: 12-31-2022 End: 12-31-2022 Emergency department patient visit DO Elisa Fuentes Facility:[facility] Start: 12-28-2022 End: 12-28-2022 Emergency department patient visit Services [employer] Work Phone: [facility] Work Phone: Start: 12-28-2022 End: 12-28-2022 Patient encounter procedure Services [facility] Work Phone: [facility] [place] Work Phone: Start: 12-28-2022 End: 12-28-2022 ambulatory Felice Veliz Facility:[facility] Start: 12-27-2022 End: 12-27-2022 ambulatory Rose Marie Shepherd Other [facility] [employer] Other Start: 12-27-2022 Office outpatient vi sit 15 minutes Rose Marie Shepherd [facility] Neurosurgery Start: 12-26-2022 End: 12-26-2022 Emergency department patient visit Balbina Bryant [facility] Start: 12-26-2022 End: 12-26-2022 ambulatory Glen Garza Other [facility] [employer] Other Start: 12-26-2022 Office outpatient vi sit 15 minutes Glen Garza [facility] Start: 12-24-2022 End: 12-24-2022 Emergency department patient visit Services [facility] [employer] Work Phone: [facility] Work Phone: Start: 12-23-2022 End: 12-23-2022 Emergency department patient visit Nikhil Tubbs [facility] Start: 12-21-2022 End: 12-21-2022 Emergency department patient visit Services [facility] [employer] Work Phone: [facility] Work Phone: Start: 12-18-2022 End: 12-18-2022 Emergency department patient visit Jorge Mcintosh [facility] Start: 12-14-2022 End: 12-14-2022 Emergency department patient visit Services [facility] [employer] Work Phone: [facility] Work Phone: Start: 12-13-2022 End: 12-13-2022 Emergency department patient visit Nikhil Tubbs [facility] Start: 12-12-2022 End: 12-13-2022 Emergency department patient visit Elisa Ellsworth Dovaleriahudson [facility] Start: 12-12-2022 (PROC) PROCEDURE Glen Garza [facility] Out[facility] Start: 12-12-2022 End: 12-12-2022 Admission to same day surgery center Services Family [facility] Work Phone: [facility]Dig[facility] Work Phone: Start: 12-12-2022 End: 12-12-2022 ambulatory Services [facility] Work Phone: [facility] Work Phone: Start: 12-11-2022 End: 12-11-2022 Emergency department patient visit Services Family [facility] Work Phone: [facility]-Emergency Room Work Phone: Start: 12-10-2022 End: 12-10-2022 Emergency department patient visit Services [facility] Work Phone: [facility]Emer[facility] Work Phone: Start: 12-09-2022 End: 12-09-2022 Emergency department patient visit Services [facility] Work Phone: [facility] Work Phone: Start: 12-07-2022 End: 12-07-2022 Emergency department patient visit Chandana Varela [facility] Start: 12-07-2022 End: 12-07-2022 Emergency department patient visit Services Family [facility] Work Phone: [facility]Emergency Room Work Phone: Start: 12-04-2022 End: 12-04-2022 Emergency department patient visit Allyson Nicole DO Work Phone: [facility] Start: 11-29-2022 End: 11-29-2022 Emergency department patient visit Services [facility] Work Phone: [facility]Emergency [facility] Work Phone: Start: 11-28-2022 (PROC) PROCEDURE Glen Vela [facility] Start: 11-28-2022 End: 11-28-2022 Admission to same day surgery center Services Family [facility] Work Phone: [facility]Dig[facility] Work Phone: Start: 11-28-2022 End: 11-28-2022 ambulatory Services [facility] Work Phone: [facility] Work Phone: Start: 11-19-2022 End: 11-19-2022 ambulatory Glentito Garza Other [facility] [employer] Other Start: 11-19-2022 Office outpatient vi sit 25 minutes Glen Garza [facility] Start: 11-18-2022 End: 11-18-2022 Emergency department patient visit Services [facility] Work Phone: [facility]-Emergency Room Work Phone: Start: 11-16-2022 End: 11-17-2022 Emergency department patient visit Services [facility] Work Phone: [facility] Work Phone: Start: 11-15-2022 End: 11-15-2022 Emergency department patient visit Services [facility] Work Phone: [facility]-Emergency Room Work Phone: Start: 11-12-2022 End: 11-12-2022 Emergency department patient visit Services [facility] Work Phone: [facility]Emer[facility] Work Phone: Start: 11-11-2022 End: 11-11-2022 Emergency department patient visit Services [facility] Work Phone: [facility]-Emergency Room Work Phone: Start: 11-08-2022 End: 11-08-2022 Emergency department patient visit Services [facility] Work Phone: [facility]Emer[facility] Work Phone: Start: 11-06-2022 Office outpatient vi sit 15 minutes Rose Marie Shepherd [facility] Neuro[facility] Start: 11-06-2022 End: 11-06-2022 ambulatory Services [facility] Work Phone: [facility] Work Phone: Start: 11-06-2022 End: 11-06-2022 Patient encounter procedure Services [facility] Work Phone: [facility]-XRay [place] Work Phone: Start: 11-05-2022 End: 11-05-2022 Emergency department patient visit MD RASHAD MCKEON Facility:[id number] Start: 11-01-2022 End: 11-01-2022 Emergency department patient visit Services Family [facility] Work Phone: [facility] Work Phone: Start: 10-31-2022 End: 10-31-2022 ambulatory Services [facility] Work Phone: [facility] Work Phone: Start: 10-31-2022 End: 10-31-2022 Patient encounter procedure Services [facility] Work Phone: [facility]-MRI [place] Work Phone: Start: 10-25-2022 End: 10-26-2022 Emergency department patient visit Services [facility] Work Phone: [facility] Work Phone: Start: 10-23-2022 End: 10-23-2022 Emergency department patient visit Services [facility] Work Phone: [facility] Work Phone: Start: 10-16-2022 End: 10-16-2022 Emergency department patient visit Services [facility] Work Phone: [facility]Emergency [facility] Work Phone: Start: 10-11-2022 End: 10-11-2022 Emergency department patient visit Services [facility] Work Phone: [facility] Work Phone: Start: 10-07-2022 End: 10-07-2022 Emergency department patient visit Services [facility] Work Phone: [facility]Emer[facility] Work Phone: Start: 10-04-2022 End: 10-04-2022 Emergency department patient visit Services [facility] Work Phone: [facility]Emergency [facility] Work Phone: Start: 10-02-2022 End: 10-02-2022 Emergency department patient visit Services [facility] Work Phone: [facility]Emer[facility] Work Phone: Start: 09-28-2022 End: 09-28-2022 Emergency department patient visit Services [facility] Work Phone: [facility]Emergency [facility] Work Phone: Start: 09-26-2022 End: 09-26-2022 ambulatory Glen Garza Other [employer] Other Start: 09-26-2022 Office outpatient vi sit 15 minutes Glen Garza [facility] Start: 09-24-2022 End: 09-24-2022 Emergency department patient visit Services [facility] Work Phone: [facility]Emergency [facility] Work Phone: Start: 09-22-2022 End: 09-22-2022 Emergency department patient visit Services [facility] Work Phone: [facility]Emer[facility] Work Phone: Start: 09-19-2022 (PROC) PROCEDURE Glen Garza [facility] Start: 09-19-2022 End: 09-19-2022 Admission to same day surgery center Services [facility] Work Phone: [facility]-Dig[facility] Work Phone: Start: 09-19-2022 End: 09-19-2022 ambulatory Services [facility] Work Phone: [employer] Other Start: 09-18-2022 End: 09-18-2022 Emergency department patient visit Services [facility] Work Phone: [facility] Work Phone: Start: 09-11-2022 End: 09-11-2022 ambulatory Rose Marie Shepherd Other [facility] [employer] Other Start: 09-11-2022 Telephone encounter Rose Marie Shepherd [facility] Neuro[facility] Start: 09-11-2022 End: 09-11-2022 Emergency department patient visit Services [facility] Work Phone: [facility] Work Phone: Start: 09-10-2022 End: 09-10-2022 Patient encounter procedure Services [facility] Work Phone: [facility] Work Phone: Start: 09-06-2022 End: 09-06-2022 Discharged Recurring Services Family [facility] Work Phone: [facility]-Physical Therapy [place] Start: 09-05-2022 End: 09-05-2022 Emergency department patient visit Services [facility] Work Phone: [facility] Work Phone: Start: 09-04-2022 End: 09-04-2022 Emergency department patient visit Pedro Pablo Fletcher [facility] Start: 09-04-2022 End: 09-04-2022 ambulatory Glen Garza Other [facility] [employer] Other Start: 09-04-2022 Office consultation new/estab patient 60 min Glen Garza [facility] Start: 09-04-2022 Telephone encounter Glen Garza [facility] [employer] Start: 09-01-2022 End: 09-01-2022 Emergency department patient visit Services Family [facility] Work Phone: [facility] Work Phone: Start: 08-31-2022 End: 08-31-2022 Emergency department patient visit Services [facility] Work Phone: [facility]-Emergency Room Work Phone: Start: 08-27-2022 End: 08-27-2022 ambulatory Rose Marie Shepherd Other [facility] [employer] Other Start: 08-27-2022 Telephone encounter Rose Marie Shepherd [facility] Neurosurgery Start: 08-26-2022 End: 08-26-2022 Emergency department patient visit Services [facility] Work Phone: [facility]-Emergency Room Work Phone: Start: 08-21-2022 End: 08-21-2022 ambulatory Rose Marie Shepherd Other [facility] [employer] Other Start: 08-21-2022 Office outpatient ne w 45 minutes Rose Marie Shepherd [facility] Neurosurgery Start: 08-16-2022 End: 08-17-2022 Emergency department patient visit Services [facility] Work Phone: [facility]Emergency Room Work Phone: Start: 08-13-2022 End: 08-13-2022 Emergency department patient visit Services [facility] Work Phone: [facility]Emergency [facility] Work Phone: Start: 08-09-2022 End: 08-09-2022 Patient encounter procedure Services [facility] Work Phone: [facility] [place] Work Phone: Start: 08-06-2022 End: 08-06-2022 Emergency department patient visit Services [facility] Work Phone: [facility]-Emergency Room Work Phone: Start: 08-02-2022 End: 08-02-2022 Emergency department patient visit Services [facility] Work Phone: [facility]-Emergency Room Work Phone: Start: 06-16-2022 End: 06-16-2022 Emergency department patient visit Services [facility] Work Phone: [facility]-Emergency Room Work Phone: Start: 03-30-2022 End: 03-30-2022 Admission to same day surgery center Services [facility] Work Phone: [facility]-Dig[facility] Work Phone: Start: 03-22-2022 End: 03-22-2022 ambulatory Keke Skaggs Other [place] [email or web address] Other Start: 03-22-2022 Telephone encounter Keke Small [facility] Start: 03-19-2022 End: 03-19-2022 Emergency department patient visit Services [facility] Work Phone: [facility]-Emergency Room Work Phone: Start: 03-17-2022 End: 03-17-2022 Emergency department patient visit Services [facility] Work Phone: [facility]Emergency [facility] Work Phone: Start: 03-14-2022 End: 03-14-2022 Emergency department patient visit Services [facility] Work Phone: [facility]-Emergency Room Start: 02-03-2022 End: 02-03-2022 Emergency department patient visit Services [facility] Work Phone: [facility]-Emergency Room Start: 01-21-2022 End: 01-21-2022 Emergency department patient visit Services [facility] Work Phone: [facility]-Emergency Room Start: 01-10-2022 End: 01-10-2022 Patient encounter procedure Celestina VILLASEÑORAM [facility] Dig[facility]ive Health Start: 12-20-2021 End: 12-20-2021 ambulatory Services [facility] Work Phone: [facility] Work Phone: Start: 12-20-2021 End: 12-20-2021 Patient encounter procedure Services [facility] Work Phone: [facility] [place] Start: 11-13-2021 End: 11-14-2021 Emergency department patient visit Services [facility] Work Phone: [facility]-Emergency Room Start: 10-30-2021 End: 10-30-2021 Patient encounter procedure Services [facility] Work Phone: [facility]-Lab [place] Start: 10-18-2021 End: 10-18-2021 Emergency department patient visit Services [facility] Work Phone: [facility]-Emergency Room Start: 10-15-2021 End: 10-15-[address] DOCTOR TRIVEDI Facility:[facility] Start: 10-09-2021 End: 10-10-2021 Emergency department patient visit Services [facility] Work Phone: [facility]-Emergency Room Start: 09-19-2021 End: 09-19-2021 Patient encounter procedure Services [facility] Work Phone: [facility]-Lab [facility] [place] Start: 09-13-2021 End: 09-14-2021 ambulatory ALMAS GRULLON Facility:[facility] Start: 09-13-2021 End: 09-13-2021 Emergency department patient visit Services Family [facility] Work Phone: [facility]Emergency Room Start: 06-21-2021 End: 06-21-2021 Lab Drop off Dagoberto Romero [facility] Start: 04-18-2021 (Procedure) Short Avery Goodman [facility] Start: 04-18-2021 End: 04-18-2021 ambulatory Avery Goodman Other [employer] Other Start: 03-30-2021 End: 03-30-2021 ambulatory Avery Goodman Other [employer] Other Start: 03-30-2021 Office consultation new/estab patient 60 min Avery [facility] [place] Start: 02-15-2021 End: 02-15-2021 ambulatory Jd Malone Other [facility] [employer] Other Start: 02-15-2021 Office outpatient vi sit 15 minutes Jd Malone [facility] Procedures Date Procedure Procedure Detail Performing Clinician Start: 12-04-2023 Ct lumbar spine w/contrast material Nighat Susie Bailey PA-C Work Phone: Start: 12-02-2023 Duplex scan of lower limb veins [facility] [employer] Phone: Start: 12-01-2023 Computed tomography of abdomen and pelvis with contrast [facility] Phone: Start: 11-26-2023 Microscopic urinalysis No PCP Start: 11-10-2023 Blood culture for bacteria, including anaerobic screen [facility] Phone: Start: 10-30-2023 Mri spinal canal lumbar w/o & w/contr matrl Gabbi Calabresetius PA-C Work Phone: Start: 10-30-2023 Radiologic exam abdomen 1 view Gabbi Corbinus PA-C Work Phone: Start: 10-30-2023 Basic metabolic panel calcium total Gabbi Corbinus PA-C Work Phone: Start: 10-30-2023 C-reactive protein Gabbi Corbinus PA-C Work Phone: Start: 10-19-2023 Blood culture for bacteria, including anaerobic screen [facility] Phone: Start: 10-19-2023 SARS-CoV-2, Influenza & RSV (PCR) Services [facility] Phone: Start: 10-19-2023 Plain chest X-ray [facility] Phone: Start: 10-05-2023 Computed tomography of abdomen and pelvis with contrast [facility] Phone: Start: 10-05-2023 Plain chest X-ray Services [facility] Work Phone: Start: 10-05-2023 Blood culture for bacteria, including anaerobic screen Services [facility] Work Phone: Start: 10-05-2023 Urine culture Services [facility] Work Phone: Start: 08-21-2023 XR tomography Unspecified body region Tiff Story MD Work Phone: Start: 08-21-2023 PULSE OXIMETRY, CONTINUOUS Joegerhard miller MD Work Phone: Start: 08-21-2023 VERAB/VERIFY ABORH Elke Adams MD Work Phone: Start: 08-21-2023 PULSE OXIMETRY, SPOT Chirag fam 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 Work Phone: Start: 08-02-2023 EXTRA URINE CASTRO TUBE CHIDI JOSEPH Start: 08-02-2023 URINALYSIS WITH REFLEX CULTURE AND MICROSCOPIC CH[facility]I JOSEPH Start: 08-02-2023 Basic metabolic 2000 panel - Serum or Plasma CH[facility]I JOSEPH Start: 08-02-2023 CBC panel - Blood by Automated count CHIDI JOSEPH Start: 08-02-2023 COAGULATION SCREEN CHIDI JOSPEH Start: 08-02-2023 STAPHYLOCOCCUS AUREUS/MRSA COLONIZATION, CULTURE CH[facility]I JOSEPH Start: 08-02-2023 TYPE AND SCREEN CHIDI OPAL Start: 08-02-2023 REQUEST FOR PRE-ADMISSION TESTING VISIT CHIDI JOSEPH Start: 06-17-2023 Hepatic function 2000 panel - Serum or Plasma [facility]I JOSEPH Start: 06-01-2023 Computed tomography of abdomen and pelvis with contrast ELIZABETH Ferrell Work Phone: Start: 06-01-2023 Plain chest X-ray ELIZABETH Ferrell Work Phone: Start: 05-20-2023 HAND/UPPER EXTREMITY INJECTION/ARTHROCENTESIS ANTONIO HUSAIN Start: 05-20-2023 XR WRIST RIGHT 3+ VIEWS ANTONIO HUSAIN Start: 05-20-2023 Arthrocentesis aspir&/inj small jt/bursa w/o us Belkis Nguyen Ciabernardadeyanira DO Work Phone: Start: 04-19-2023 LIVER ELASTOGRAPHY CHIDI MORRIS Start: 04-12-2023 Plain X-ray of left shoulder Start: 04-01-2023 [id number] [facility] Start: 04-01-2023 ALPHA-FETOPROTEIN [facility] Start: 04-01-2023 BEATRIZ-WITH REFLEX TO JESUS CH[facility]I MORRIS Start: 04-01-2023 ANTI-MITOCHONDRIAL ANTIBODY [facility] Start: 04-01-2023 ANTI-SMOOTH MUSCLE ANTIBODY [facility] Start: 04-01-2023 Bilirubin.indirect [Mass/volume] in Serum or Plasma CH[facility]I MORRIS Start: 04-01-2023 CBC W Auto Differential panel - Blood [facility] Start: 04-01-2023 CERULOPLASMIN [facility] Start: 04-01-2023 Comprehensive metabolic 2000 panel - Serum or Plasma [facility] Start: 04-01-2023 Ferritin [Mass/volume] in Serum or Plasma [facility] Start: 04-01-2023 HCV PCR WITH GENOTYPE REFLEX [facility] Start: 04-01-2023 HEPATITIS A ANTIBODY, TOTAL [facility] Start: 04-01-2023 HEPATITIS B CORE ANTIBODY, TOTAL [facility] Start: 04-01-2023 HEPATITIS B SURFACE ANTIBODY [facility] Start: 04-01-2023 HEPATITIS B SURFACE ANTIGEN [facility] Start: 04-01-2023 HEPATITIS C GENOTYPE [facility] Start: 04-01-2023 HIV 1/2 ANTIGEN/ANTIBODY SCREEN WIH REFLEX TO CONFIRMATION [facility] Start: 04-01-2023 IRON AND TIBC [facility] Start: 04-01-2023 PHOSPHATIDYLETHANOL (PETH), WHOLE BLOOD, QUANTITATIVE [facility] Start: 04-01-2023 PROTIME-INR [facility] Start: 02-13-2023 HEPATITIS C ANTIBODY [facility] Start: 02-13-2023 HEPATITIS C RNA, QUANTITATIVE, PCR CHIDI JOSEPH Start: 02-13-2023 US ABDOMEN LIMITED LIVER ANTONIO HUSAIN Start: 02-13-2023 Us abdominal real time w/image limited Antonio Husain PA-C Work Phone: Start: 01-15-2023 DRUG SCREEN, URINE WITH REFLEX TO CONFIRMATION ANTONIO HUSAIN Start: 12-28-2022 X-ray of lumbar spine, six views including bending views [facility] Phone: Start: 12-12-2022 Injection of spinal epidural space [facility] Phone: Start: 12-09-2022 X-ray of lumbar spine, four or more views [facility] Phone: Start: 11-28-2022 Injection of spinal epidural space [facility] Phone: Start: 11-17-2022 X-ray of lumbar spine, two or three views [facility] Phone: Start: 11-06-2022 Plain X-ray of left hip [facility] Phone: Start: 10-31-2022 MR lumbar spine wo con Services [facility] Phone: Start: 10-16-2022 CT of lumbar spine without contrast [facility] Phone: Start: 09-19-2022 Injection of local anesthetic into sacroiliac joint [facility] Phone: Start: 09-11-2022 X-ray of lumbar spine, four or more views [facility] Phone: Start: 09-10-2022 Dual energy X-ray absorptiometry Services [facility] Phone: Start: 08-09-2022 X-ray of lumbar spine, six views including bending views [facility] Phone: Start: 03-30-2022 End: 03-30-2022 Colonoscopy [facility] Phone: Start: 03-19-2022 CT of abdomen and pelvis without contrast [facility] Phone: Start: 03-19-2022 SARS-CoV-2, Influenza & RSV (PCR) Services [facility] Phone: Start: 03-14-2022 Computed tomography of abdomen and pelvis with contrast [facility] Phone: Start: 03-14-2022 Screening for occult blood in feces [facility] Phone: Start: 02-03-2022 CT of abdomen and pelvis without contrast Services [facility] Work Phone: Start: 02-03-2022 Urine culture [facility] [employer] Phone: Start: 12-20-2021 Plain X-ray of left shoulder Services [facility] [employer] Phone: Start: 11-13-2021 Computed tomography of abdomen and pelvis with contrast [facility] Phone: Start: 10-18-2021 Plain chest X-ray [facility] Phone: Start: 10-09-2021 Computed tomography of abdomen and pelvis with contrast [facility] Phone: Start: 03-25-2010 Hysterectomy Cheyanne Rosas History of cholecystectomy L annette Skaggs Other History of cholecystectomy E marcos Rosas Hysterectomy Dagoberto Romero Hysterectomy Cheyanne Rosas lap x 7 Dagoberto Romero Tonillectomy with adenoids N jewell Romero Urine culture Services [facility] [employer] Work Phone: Plan of Treatment Date Care Activity Detail Author Start: 2037 RSV patients and/or patients aged 60+ years (1 - 1-dose 60+ series) RSV patients and/or patients aged 60+ years (1 - 1-dose 60+ series) [facility] Start: 03-30-2032 Screening for malignant neoplasm of colon [facility] Start: 2027 Zoster Vaccines (1 of 2) Zoster Vaccines (1 of 2) [facility] Start: 12-02-2023 Duplex scan of lower limb veins US venous duplex LE RT [facility] Start: 12-02-2023 US Lower extremity vein - right [facility] Start: 12-01-2023 Computed tomography of abdomen and pelvis with contrast CT abdomen pelvis w con [facility] Start: 12-01-2023 CT Abdomen and Pelvis W contrast IV [facility] Start: 11-26-2023 Computerized axial tomography of lumbar spine with contrast [facility] Start: 11-24-2023 COVID-19 Vaccines ( season) COVID-19 Vaccines ( season) [facility] Start: 11-24-2023 Influenza vaccination Influenza Vaccine (Season Ended) [facility] Start: 11-10-2023 Bacteria identified in Blood by Culture [facility] Start: 10-24-2023 Influenza vaccination [facility] Start: 10-24-2023 Refusal of treatment by patient [facility] Start: 10-19-2023 Bacteria identified in Blood by Culture [facility] Start: 10-05-2023 Bacteria identified in Blood by Culture [facility] Start: 10-05-2023 Bacteria identified in Urine by Culture [facility] Start: 08-27-2023 End: 08-27-2023 Patient encounter procedure 08/27/2023 1:00 PM EDT Office Visit [facility] [address] [facility] 5th [place] [phone] Chirag Reynoso, 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 [address] Department [place] [address] [facility] Start: 07-08-2023 End: 07-08-2023 Telemedicine consultation with patient 07/08/2023 10:00 AM EDT [facility]medicine [facility] [address] 7th [place] [phone] [place] [address] Department [place] [address] [facility] Start: 06-05-2023 End: 06-05-2023 Patient encounter procedure 06/05/2023 8:00 AM EDT Office Visit [facility] [address] [facility] [address]th [place] [phone] [place] [address] Department [place] [address] [facility] Start: 06-03-2023 End: 06-03-2023 Patient encounter procedure 06/03/2023 8:45 AM EDT Office Visit [address] [phone] Belkis Hernandez, DO [address] [facility], [address] [place] [address] [facility] Start: 05-24-2023 Hepatitis B vaccine (2 of 2 - CpG 2-dose series) Hepatitis B vaccine (2 of 2 - CpG 2-dose series) [facility] Start: 05-24-2023 Hepatitis B Vaccines (2 of 2 - CpG 2-dose series) Hepatitis B Vaccines (2 of 2 - CpG 2-dose series) [facility] Start: 05-20-2023 End: 05-20-2024 XR Wrist - right 3 Views [facility] Service Ar ea Work Phone: Comment on above: Expected: 05/20/2023, Expires: Start: 05-08-2023 End: 05-08-2023 Patient encounter procedure 05/08/2023 8:45 AM EST Office Visit [facility] [address] [facility] 5th [place] [phone] [place] [address] Department [place] [address] [facility] Start: 04-30-2023 End: 04-30-2023 Patient encounter procedure 04/30/2023 11:00 AM EST Office Visit [facility] [address] [phone] [place] [address] Department [place] [address] [facility] Start: 04-17-2023 End: 04-17-2023 Patient encounter procedure 04/17/2023 1:10 PM EST Office Visit [facility] [address] [place] [phone] Antonio Husain PA-C [address] [facility] [place] [address] [facility] Start: 04-01-2023 End: 04-01-2024 Alpha 1 antitrypsin [Mass/volume] in Serum or Plasma by Nephelometry [facility] Work Phone: Comment on above: Expected: 04/01/2023 (Approximate), Expi res: 04/01/2024 Start: 04-01-2023 End: 04-01-2024 Ttqsa-[id number]-[id number] [Mass/volume] in Serum or Plasma [facility] Work Phone: Comment on above: Expected: 04/01/2023 (Approximate), Expi res: 04/01/2024 Start: 04-01-2023 End: 04-01-2024 Bilirubin.direct [Mass/volume] in Serum or Plasma [facility] Work Phone: Comment on above: Expected: 04/01/2023 (Approximate), Expi res: 04/01/2024 Start: 04-01-2023 End: 04-01-2024 CBC W Auto Differential panel - Blood [facility] Work Phone: Comment on above: Expected: 04/01/2023 (Approximate), Expi res: 04/01/2024 Start: 04-01-2023 End: 04-01-2024 Ceruloplasmin [Mass/volume] in Serum or Plasma [facility] Work Phone: Comment on above: Expected: 04/01/2023 (Approximate), Expi res: 04/01/2024 Start: 04-01-2023 End: 04-01-2024 Comprehensive metabolic 2000 panel - Serum or Plasma [facility] Work Phone: Comment on above: Expected: 04/01/2023 (Approximate), Expi res: 04/01/2024 Start: 04-01-2023 End: 04-01-2024 Ferritin [Mass/volume] in Serum or Plasma [facility] Work Phone: Comment on above: Expected: 04/01/2023 (Approximate), Expi res: 04/01/2024 Start: 04-01-2023 End: 04-01-2024 Hepatitis A virus Ab [Presence] in Serum by Immunoassay [facility] Work Phone: Comment on above: Expected: 04/01/2023 (Approximate), Expi res: 04/01/2024 Start: 04-01-2023 End: 04-01-2024 Hepatitis B virus core Ab [Presence] in Serum [facility] Work Phone: Comment on above: Expected: 04/01/2023 (Approximate), Expi res: 04/01/2024 Start: 04-01-2023 End: 04-01-2024 Hepatitis B virus surface Ab [Units/volume] in Serum [facility] Work Phone: Comment on above: Expected: 04/01/2023 (Approximate), Expi res: 04/01/2024 Start: 04-01-2023 End: 04-01-2024 Hepatitis B virus surface Ag [Presence] in Serum or Plasma by Immunoassay [facility] Work Phone: Comment on above: Expected: 04/01/2023 (Approximate), Expi res: 04/01/2024 Start: 04-01-2023 End: 04-01-2024 Hepatitis C virus RNA panel (viral load) in Serum or Plasma by LINDSEY with probe detection [facility] Work Phone: Comment on above: Expected: 04/01/2023 (Approximate), Expi res: 04/01/2024 Start: 04-01-2023 End: 04-01-2024 HIV 1+2 Ab+HIV1 p24 Ag [Presence] in Serum or Plasma by Immunoassay [facility] Work Phone: Comment on above: Expected: 04/01/2023 (Approximate), Expi res: 04/01/2024 Start: 04-01-2023 End: 04-01-2024 Iron and Iron binding capacity panel - Serum or Plasma [facility] Work Phone: Comment on above: Expected: 04/01/2023 (Approximate), Expi res: 04/01/2024 Start: 04-01-2023 End: 04-01-2024 Liver Elastography (Fibroscan) Liver Elastography (Fibroscan) GI Routine Chronic hepatitis C without hepatic coma (CMS/HCC) Expected: 04/01/2023 (Approximate), Expires: 04/01/2024 [facility] Service Area Work Phone: Comment on above: Expected: 04/01/2023 (Approximate), Expi res: 04/01/2024 Start: 04-01-2023 End: 04-01-2024 Mitochondria Ab [Presence] in Serum by Immunofluorescence [facility] Work Phone: Comment on above: Expected: 04/01/2023 (Approximate), Expi res: 04/01/2024 Start: 04-01-2023 End: 04-01-2024 Nuclear Ab [Presence] in Serum by Hep2 substrate [facility] Work Phone: Comment on above: Expected: 04/01/2023 (Approximate), Expi res: 04/01/2024 Start: 04-01-2023 End: 04-01-2024 Phosphatidylethanol (PEth), Whole Blood, Quantitative [facility] Work Phone: Comment on above: Expected: 04/01/2023 (Approximate), Expi res: 04/01/2024 Start: 04-01-2023 End: 04-01-2024 Prothrombin time (PT) [facility] Work Phone: Comment on above: Expected: 04/01/2023 (Approximate), Expi res: 04/01/2024 Start: 04-01-2023 End: 04-01-2024 Smooth muscle Ab [Presence] in Serum by Immunofluorescence [facility] Work Phone: Comment on above: Expected: 04/01/2023 (Approximate), Expi res: 04/01/2024 Start: 01-22-2023 End: 01-23-2024 XR Lumbar spine Views W flexion and W extension XR lumbar spine 4+ views w flexion extension Imaging Routine Chronic low back pain, unspecified back pain laterality, unspecified whether sciatica present Expected: 01/22/2023, Expires: 01/23/2024 [facility] Service Area Work Phone: Comment on above: Expected: 01/22/2023, Expires: Start: 01-22-2023 End: 01-22-2023 Patient encounter procedure 01/22/2023 1:30 PM EDT Office Visit [facility] [address] [facility] [address] [place] [address] [place] [address], [place] [id number] [facility] Start: 01-18-2023 End: 01-18-2023 Patient encounter procedure 01/18/2023 9:30 AM EDT Appointment [address] [phone] [facility] Start: 01-15-2023 End: 03-17-2024 DBT Breast - bilateral BI mammo bilateral screening tomosynthesis Imaging Routine Encounter for screening mammogram for breast cancer Expected: 01/15/2023, Expires: 03/17/2024 [facility] Service Area Work Phone: Comment on above: Expected: 01/15/2023, Expires: Start: 01-15-2023 End: 01-16-2024 Drugs of abuse screen W Reflex confirm panel - Urine [facility] Work Phone: Comment on above: Expected: 01/15/2023 (Approximate), Expi res: 01/16/2024 Start: 01-15-2023 End: 01-16-2024 Hepatitis C virus Ab [Presence] in Serum Hepatitis C Antibody Lab Routine Chronic hepatitis C without hepatic coma (CMS/HCC) Expected: 01/15/2023 (Approximate), Expires: 01/16/2024 [facility] Work Phone: Comment on above: Expected: 01/15/2023 (Approximate), Expi res: 01/16/2024 Start: 01-15-2023 End: 01-16-2024 Hepatitis C virus RNA panel (viral load) in Serum or Plasma by LINDSEY with probe detection Hepatitis C RNA, Quantitative, PCR Lab Routine Chronic hepatitis C without hepatic coma (CMS/HCC) Expected: 01/15/2023 (Approximate), Expires: 01/16/2024 [facility] Work Phone: Comment on above: Expected: 01/15/2023 (Approximate), Expi res: 01/16/2024 Start: 01-15-2023 End: 01-16-2024 US Liver limited US abdomen limited liver Imaging Routine Chronic hepatitis C without hepatic coma (CMS/HCC) Expected: 01/15/2023, Expires: 01/16/2024 [facility] Work Phone: Comment on above: Expected: 01/15/2023, Expires: Start: 12-12-2022 [facility] Start: 11-28-2022 [facility] Start: 11-23-2022 COVID-19 VACCINE ( season) COVID-19 VACCINE () [facility] Start: 11-23-2022 Influenza vaccination Influenza Vaccine (#1) [facility] Start: 11-17-2022 X-ray of lumbar spine, two or three views XR lumbar spine 2-3V* [facility] Start: 11-17-2022 XR Lumbar spine 2 or 3 Views [facility] Start: 10-23-2022 Refusal of treatment by patient INFLUENZA VACCINE [facility] Start: 03-30-2022 [facility] Start: 2022 DIABETES SCREENING DIABETES SCREENING [facility] Start: 2022 Screening for malignant neoplasm of colon [facility] Start: 11-13-2021 Computed tomography of abdomen and pelvis with contrast CT abdomen pelvis w con [facility] Start: 11-13-2021 End: 11-14-2021 Emergency department patient visit Departed Emergency [facility] Start: 10-30-2021 End: 10-30-2021 Patient encounter procedure Departed Clinical [facility] [place] Start: 08-28-2020 COVID-19 VACCINE (2 - Booster for Teddy series) COVID-19 VACCINE (2 - Booster for Teddy series) [facility] Start: 2017 Lipid panel Lipids [facility] Start: 2017 Screening for malignant neoplasm of breast [facility] Start: 2002 CERVICAL CANCER SCREENING CERVICAL CANCER SCREENING [facility] Start: 2002 COTEST / HPV COTEST / HPV [facility] Start: 2002 Screening for malignant neoplasm of cervix [facility] Start: 1999 DTaP/Tdap/Td Vaccines (1 - Tdap) DTaP/Tdap/Td Vaccines (1 - Tdap) [facility] Start: 1998 Microscopic observation [Identifier] in Cervix by Cyto stain PAP SMEAR [facility] Start: 1998 Screening for malignant neoplasm of cervix [facility] Start: 1996 DTaP/Tdap/Td vaccine (1 - Tdap) DTaP/Tdap/Td vaccine (1 - Tdap) [facility] Start: 1996 DTaP/Tdap/Td VACCINES (1 - Tdap) DTaP/Tdap/Td VACCINES (1 - Tdap) [facility] Start: 1996 Hepatitis A Vaccines (1 of 2 - Risk 2-dose series) Hepatitis A Vaccines (1 of 2 - Risk 2-dose series) [facility] Start: 1996 HEPATITIS B VACCINES (1 of 3 - 19+ 3-dose series) HEPATITIS B VACCINES (1 of 3 - 19+ 3-dose series) [facility] Start: 1995 BREAST CANCER SCREENING BREAST CANCER SCREENING [facility] Start: 1995 Diabetes mellitus screening Diabetes Screening [facility] Start: 1995 HEPATITIS C SCREENING HEPATITIS C SCREENING [facility] Start: 1995 Hepatitis C screening [facility] Start: 1995 Screening for malignant neoplasm of breast Breast Cancer Screening [facility] Start: 1992 HIV SCREENING HIV SCREENING [facility] Start: 1992 HIV screening [facility] Start: 1989 Depression Screen Depression Screen [facility] Start: 1983 Pneumococcal 0-64 years Vaccine (1 of 2 - PCV) Pneumococcal 0-64 years Vaccine (1 of 2 - PCV) [facility] Start: 1983 PNEUMOCOCCAL VACCINE: Pediatrics (0 to 5 Years) and At-Risk Patients (6 to 64 Years) (1 - PCV) PNEUMOCOCCAL VACCINE: Pediatrics (0 to 5 Years) and At-Risk Patients (6 to 64 Years) (1 - PCV) [facility] Start: 1983 PNEUMOCOCCAL VACCINE: Pediatrics (0 to 5 Years) and At-Risk Patients (6 to 64 Years) (1 of 2 - PCV) PNEUMOCOCCAL VACCINE: Pediatrics (0 to 5 Years) and At-Risk Patients (6 to 64 Years) (1 of 2 - PCV) [facility] Start: 1983 Pneumococcal Vaccines: Pediatrics (0 to 5 Years) and At-Risk Patients (6 to 64 Years) (1 of 2 - PCV) Pneumococcal Vaccines: Pediatrics (0 to 5 Years) and At-Risk Patients (6 to 64 Years) (1 of 2 - PCV) [facility] Start: 1980 ANNUAL PREVENTIVE PHYSICAL (INCLUDES MAAP) ANNUAL PREVENTIVE PHYSICAL (INCLUDES MAAP) [facility] Start: 1978 MMR Vaccines (1 of 1 - Standard series) MMR Vaccines (1 of 1 - Standard series) [facility] Start: 1977 COVID-19 Vaccine (#1) COVID-19 Vaccine (#1) [facility] Start: 1977 Colonoscopy Colonoscopy [facility] Start: 1977 COLORECTAL CANCER SCREENING COLORECTAL CANCER SCREENING [facility] Start: [address] Colonography [facility] Start: 1977 FIT-DNA (Cologuard) FIT-DNA (Cologuard) [facility] Start: 1977 FOBT/FIT FOBT/FIT [facility] Start: 1977 HEPATITIS B VACCINES (1 of 3 - 3-dose series) HEPATITIS B VACCINES (1 of 3 - 3-dose series) [facility] Start: 1977 HIV screening HIV Screening [facility] Start: 1977 Lipid panel Lipid Panel [facility] Start: 1977 Screening for malignant neoplasm of colon [facility] Start: 1977 Yearly Adult Physical Yearly Adult Physical [facility] Bacteria identified in Urine by Culture [facility] MR Lumbar spine WO a nd W contrast IV MRI LUMBAR SPINE W WO CONTRAST Imaging STAT 10/30/2023 9:03 PM EDT [facility] Work Phone: Patient Education [facility] Work Phone: Patient referral [facility] Work Phone: End: 02-13-2023 US Liver limited [facility] Service Area Work Phone: Comment on above: Once for 1 Occurrences starting 02/14/20 23 until 02/13/2023 Immunizations Immunization Date Immunization Notes Care Provider Farhat roman 04-26-2023 hepatitis B vaccine, adult dosage Dax Lira [facility] 07-03-2020 SARS-CoV-2 (COVID-19 ) Ad26 vaccine, recombinant Dax Lira [facility] Care Payers Date Payer Category Payer Unknown [id number] 05-24-2023 Unknown [id number] 07-16-2022 [place] [employer] [id number] 2.16.840.1.113301.19 04-25-2022 Medicaid [id number]. 1.13.129.2. [id number] 04-25-2022 Unknown 1977 Unknown [id number] 2.16.840.1.097571.3.579.2. 593 1977 Unknown [id number] 2.16.840.1.574562.3.579.2. 593 1977 Unknown [id number] 2.16.840.1.625972.3.579.2. 1069 1977 Unknown [id number] 2.16.840.1.340307.3.579.2. 1244 1977 Unknown [id number] 2.16.840.1.939583.3.579.2. 1244 1977 Unknown [id number] 2.16.840.1.606585.3.579.2. 1244 1977 Unknown [id number] 2.16.840.1.521776.3.579.2. 1244 1977 Unknown [id number] 2.16.840.1.471076.3.579.2. 1244 1977 Unknown [id number] 2.16.840.1.074645.3.579.2. 176 1977 Unknown [id number] 2.16.840.1.769644.3.579.2. 176 1977 Unknown [id number] 2.16.840.1.318741.3.579.2. 196 1977 Unknown [id number] 2.16.840.1.524518.3.579.2. 196 1977 Unknown [id number] 2.16.840.1.100407.3.579.2. 196 1977 Unknown [id number] 2.16.840.1.699127.3.579.2. 718 1977 Unknown [id number] 2.16.840.1.896968.3.579.2. 718 1977 Unknown [id number] 2.16.840.1.157339.3.579.2. 718 1977 Unknown [id number] 2.16.840.1.300810.3.579.2. 8 1977 Unknown [id number] 2.16.840.1.572811.3.579.2. 727 1977 Unknown [id number] 2.16.840.1.069071.3.579.2. 727 1977 Unknown [id number] 2.16.840.1.321014.3.579.2. 727 1977 Unknown [id number] 2.16.840.1.820249.3.579.2. 727 1977 Unknown [id number] 2.16.840.1.251197.3.579.2. 727 1977 Unknown [id number] 2.16.840.1.400815.3.579.2. 727 1977 Unknown [id number] 2.16.840.1.782656.3.579.2. 727 1977 Unknown [id number] 2.16.840.1.258946.3.579.2. 727 1977 Unknown [id number] 2.16.840.1.832381.3.579.2. 727 1977 Unknown [id number] 2.16.840.1.233525.3.579.2 1977 Unknown [id number] 2.16.840.1.302535.3.579.2 1977 Unknown [id number] 2.16.840.1.377258.3.579.2 1977 Unknown [id number] 2.16.840.1.743722.3.579.2 1977 Unknown [id number] 2.16.840.1.598511.3.579.2 1977 Unknown [id number] 2.16.840.1.418044.3.579.2 1977 Unknown [id number] 2.16.840.1.314587.3.579.2 1977 Unknown [id number] 2.16.840.1.427127.3.579.2 1977 Unknown [id number] 2.16.840.1.768082.3.579.2 1977 Unknown [id number] 2.16.840.1.475414.3.579. 1977 Unknown [id number] 2.16.840.1.465763.3.579.2 1977 Unknown [id number] 2.16.840.1.096155.3.579.2 1977 Unknown [id number] 2.16.840.1.662376.3.579.2 1977 Unknown [id number] 2.16.840.1.064302.3.579.2 1977 Unknown [id number] 2.16.840.1.953314.3.579.2 1977 Unknown [id number] 2.16.840.1.869632.3.579.2 1977 Unknown [id number] 2.16.840.1.293304.3.579.2. 1977 Unknown [id number] 2.16.840.1.742168.3.579.2 1977 Unknown [id number] 2.16.840.1.076797.3.579.2 1977 Unknown [id number] 2.16.840.1.856295.3.579.2 1977 Unknown [id number] 2.16.840.1.869965.3.579.2 1977 Unknown [id number] 2.16.840.1.867391.3.579.2 1977 Unknown [id number] 2.16.840.1.177889.3.579.2 1977 Unknown [id number] 2.16.840.1.438998.3.579.2 1977 Unknown [id number] 2.16.840.1.129517.3.579.2 1977 Unknown [id number] 2.16.840.1.357553.3.579.2 1977 Unknown [id number] 2.16.840.1.387905.3.579.2 1977 Unknown [id number] 2.16.840.1.765532.3.579.2 1977 Unknown [id number] 2.16.840.1.638253.3.579.2 1977 Unknown [id number] 2.16.840.1.023200.3.579.2 1977 Unknown [id number] 2.16.840.1.150292.3.579.2 1977 Unknown [id number] 2.16.840.1.289758.3.579.2 1977 Unknown [id number] 2.16.840.1.306646.3.579.2. 1977 Unknown [id number] 2.16.840.1.159013.3.579.2 1977 Unknown [id number] 2.16.840.1.666971.3.579.2 1977 Unknown [id number] 2.16.840.1.608964.3.579.2 1977 Unknown [id number] 2.16.840.1.589590.3.579.2 1977 Unknown [id number] 2.16.840.1.106389.3.579.2 1977 Unknown [id number] 2.16.840.1.064434.3.579.2 1977 Unknown [id number] 2.16.840.1.852993.3.579.2 1977 Unknown [id number] 2.16.840.1.855593.3.579.2 1977 Unknown [id number] 2.16.840.1.686282.3.579.2 1977 Unknown [id number] 2.16.840.1.872360.3.579.2 1977 Unknown [id number] 2.16.840.1.457854.3.579.2 1977 Unknown [id number] 2.16.840.1.107548.3.579.2 1977 Unknown [id number] 2.16.840.1.571179.3.579.2 1977 Unknown [id number] 2.16.840.1.519493.3.579.2 1977 Unknown [id number] 2.16.840.1.293238.3.579.2 1977 Unknown [id number] 2.16.840.1.052618.3.579.2. 1977 Unknown [id number] 2.16.840.1.040151.3.579.2 1977 Unknown [id number] 2.16.840.1.231181.3.579.2 1977 Unknown [id number] 2.16.840.1.905949.3.579.2 1977 Unknown [id number] 2.16.840.1.272167.3.579.2 1977 Unknown [id number] 2.16.840.1.586217.3.579.2 1977 Unknown [id number] 2.16.840.1.431507.3.579. 1977 Unknown [id number] 2.16.840.1.729262.3.579.2 1977 Unknown [id number] 2.16.840.1.308543.3.579.2 1977 Unknown [id number] 2.16.840.1.490276.3.579.2 1977 Unknown [id number] 2.16.840.1.283334.3.579.2 1977 Unknown [id number] 2.16.840.1.755802.3.579.2 1977 Unknown [id number] 2.16.840.1.798434.3.579.2 1977 Unknown [id number] 2.16.840.1.481763.3.579.2 1977 Unknown [id number] 2.16.840.1.248248.3.579.2 1977 Unknown [id number] 2.16.840.1.211846.3.579.2 1977 Unknown [id number] 2.16.840.1.622674.3.579.2. 727 1977 Unknown [id number] 2.16.840.1.940044.3.579.2. 727 1977 Unknown [id number] 2.16.840.1.816870.3.579.2. 727 1977 Unknown [id number] 2.16.840.1.730095.3.579.2. 1243 1977 Unknown [id number] 2.16.840.1.475487.3.579.2. 124 1977 Unknown [id number] 2.16.840.1.948064.3.579.2. 1242 1977 Unknown [id number] 2.16.840.1.735500.3.579.2. 1242 1977 Unknown [id number] 2.16.840.1.526559.3.579.2. 124 1977 Unknown [id number] 2.16.840.1.730750.3.579.2. 1242 1977 Unknown [id number] 2.16.840.1.706538.3.579.2. 1242 1977 Unknown [id number] 2.16.840.1.504896.3.579.2. 1242 1977 Unknown [id number] 2.16.840.1.360608.3.579.2. 1246 1977 Unknown [id number] 2.16.840.1.430610.3.579.2. 124 1977 Unknown [id number] 2.16.840.1.597711.3.579.2. 1241 1977 Unknown [id number] 2.16.840.1.734206.3.579.2. 1242 1977 Unknown [id number] 2.16.840.1.128294.3.579.2. 12405 1977 Unknown [id number] 2.16.840.1.826505.3.579.2. 1241 1977 Unknown [id number] 2.16.840.1.773616.3.579.2. 1241 1977 Unknown [id number] 2.16.840.1.191058.3.579.2. 1241 1977 Unknown [id number] 2.16.840.1.413111.3.579.2. 1241 1977 Unknown [id number] 2.16.840.1.155314.3.579.2. 1241 1977 Unknown [id number] 2.16.840.1.214182.3.579.2. 1241 1977 Unknown [id number] 2.16.840.1.340876.3.579.2. 1241 1977 Unknown [id number] 2.16.840.1.464102.3.579.2. 1244 1977 Unknown [id number] 2.16.840.1.756999.3.579.2. 1244 1977 Unknown [id number] 2.16.840.1.732705.3.579.2. 1244 1977 Unknown [id number] 2.16.840.1.334662.3.579.2. 1244 1977 Unknown [id number] 2.16.840.1.699185.3.579.2. 1244 1977 Unknown [id number] 2.16.840.1.342952.3.579.2. 1244 1977 Unknown [id number] 2.16.840.1.633993.3.579.2. 1244 1977 Unknown [id number] 2.16.840.1.847028.3.579.2. 1244 1977 Unknown [id number] 2.16.840.1.441939.3.579.2. 1244 1977 Unknown [id number] 2.16.840.1.141865.3.579.2. 1244 1977 Unknown [id number] 2.16.840.1.149269.3.579.2. 1244 1977 Unknown [id number] 2.16.840.1.925206.3.579.2. 1244 1977 Unknown [id number] 2.16.840.1.254795.3.579.2. 1244 1977 Unknown [id number] 2.16.840.1.079567.3.579.2. 1244 1977 Unknown [id number] 2.16.840.1.919508.3.579.2. 1244 1977 Unknown [id number] 2.840.1.350910.3.579.2. 1244 1977 Unknown [id number] 2.16840.1.017847.3.579.2. 1244 1977 Unknown [id number] 2.16.840.1.326122.3.579.2. 1244 1977 Unknown [id number] 2.16.840.1.956836.3.579.2. 1244 1977 Unknown [id number] 2.840.1.130092.3.579.2. 1244 1977 Unknown [id number] 2.16.840.1.950144.3.579.2. 1244 1977 Unknown [id number] 2.16.840.1.512660.3.579.2. 1244 1977 Unknown [id number] 2.16.840.1.313479.3.579.2. 1244 1977 Unknown [id number] 2.16840.1.343705.3.579.2. 1244 1977 Unknown [id number] 2.16.840.1.404495.3.579.2. 1245 1977 Unknown [id number] 2.840.1.520817.3.579.2. 1245 1977 Unknown [id number] 2.840.1.815323.3.579.2. 1245 1977 Unknown [id number] 2.840.1.627492.3.579.2. 727 1977 Unknown [id number] 2.840.1.736325.3.579.2. 727 1977 Unknown [id number] 2.840.1.347525.3.579.2. 727 03-25-1957 Medicaid [id number] 03-25-1957 Self-pay [id number] [employer] [id number] Private Health Insurance [facility] Plan [id number] Private Health Insurance [employer] [id number] Unknown [id number] Unknown COVID19 HRSA Uni nsured Fund [id number] Unknown [id number] 840.1.893953.3.579.2. 246 Unknown [id number] 840.1.682293.3.579.2. 246 Unknown [id number] 2.840.1.465191.3.579.2. 246 Unknown [id number] 840.1.458493.3.579.2. 246 Unknown [id number] 2.16.840.1.705046.3.579.2. 531 Unknown [id number] 2.16.840.1.952248.3.579.2. 531 Unknown [id number] 2.16.840.1.283573.3.579.2. 531 Unknown [id number] 2.16.840.1.226453.3.579.2. 531 Unknown [id number] 2.16.840.1.407520.3.579.2. 531 Unknown [id number] 2.16.840.1.295591.3.579.2. 531 Unknown [id number] 2.16.840.1.690751.3.579.2. 531 Unknown [id number] 2.16.840.1.732186.3.579.2. 531 Unknown [id number] 2.16.840.1.224845.3.579.2. 531 Unknown [id number] 2.16.840.1.631541.3.579.2. 531 Unknown [id number] 2.16.840.1.317487.3.579.2. 531 Unknown [id number] 2.16.840.1.365138.3.579.2. 531 Unknown [id number] 2.16.840.1.117967.3.579.2. 531 Unknown [id number] 2.16.840.1.915133.3.579.2. 531 Unknown [id number] 2.16.840.1.751113.3.579.2. 531 Unknown [id number] 2.16.840.1.579944.3.579.2. 531 Unknown [id number] 2.16.840.1.923521.3.579.2. 531 Unknown [id number] 2.16.840.1.111235.3.579.2. 531 Unknown [id number] 2.16.840.1.249260.3.579.2. 531 Unknown [id number] 2.16.840.1.908103.3.579.2. 531 Unknown [id number] 2.16.840.1.568255.3.579.2. 531 Unknown [id number] 2.16.840.1.819863.3.579.2. 531 Unknown [id number] 2.16.840.1.871141.3.579.2. 531 Unknown [id number] 2.16.840.1.290151.3.579.2. 531 Unknown [id number] 2.16.840.1.767837.3.579.2. 531 Unknown [id number] 2.16.840.1.236114.3.579.2. 531 Unknown [id number] 2.16.840.1.316591.3.579.2. 531 Unknown [id number] 2.16.840.1.035649.3.579.2. 531 Unknown [id number] 2.16.840.1.885648.3.579.2. 531 Unknown [id number] 2.16.840.1.680415.3.579.2. 531 Unknown [id number] 2.16.840.1.747373.3.579.2. 531 Social History Date Type Detail Facility Tobacco Current, Cigaret yolie, 10 per day. [facility] Other Comment on above: 10 cigs per day every day smoker Start: 01-15-2023 End: 12-04-2023 Sex Assigned At Female [facility] Other Start: 11-13-2021 End: 12-12-2023 Tobacco smoking status ARIS Smoker (finding) [facility] Start: 1975 Sex Assigned At Female F [facility] Tobacco smoking status No Smoking Status Entered [facility] Start: 12-04-2022 End: 11-26-2023 Tobacco smoking status ARIS Smokes tobacco daily [facility] History of tobacco use Cigarette Smoker [facility] Start: 12-04-2022 End: 12-04-2023 Cigarettes smoked current (pack per day) - Reported 0.5 [facility] Start: 12-04-2022 End: 07-26-2023 Tobacco use and exposure Smokeless tobacco non-user [facility] Start: 1975 Sex Assigned At Not on file [facility] Start: 12-21-2022 Tobacco smoking status NHIS Never smoked tobacco (finding) [facility] Start: 01-15-2023 Alcohol intake Ex-drinker (finding) [facility] Work Phone: Start: 01-05-2023 End: 08-27-2023 Exposure to SARS-CoV-2 (event) Not sure [facility] Start: 01-22-2023 End: 08-27-2023 Alcohol intake Current drinker of alcohol (finding) [facility] Work Phone: Start: 01-22-2023 Alcohol Comment Socially [facility] Work Phone: Start: 01-22-2023 End: 09-17-2023 Tobacco smoking status Heavy tobacco smoker (finding) [facility] Tobacco smoking status Never [facility] Start: 08-21-2023 Gender identity Identifies as female gender (finding) [facility] Work Phone: Start: 01-31-2014 End: 10-30-2023 Alcohol intake Current non-drinker of alcohol (finding) [employer] How often to you hav e a drink containing alcohol? Never [employer] Start: 11-26-2023 With Spouse/Significant Other With Spouse/Significant Other [facility] Start: 11-26-[address] Never Used [facility] Start: 11-26-[address] [facility] Start: 11-26-[address] Use [facility] Start: 11-26-[address] [facility] Start: 11-27-2023 Sex Female (finding) [facility] NEGATED: Highlighted row [facility] Medical Equipment Procedure Code Equipment Code Equipment Origin al Text Equipment Identifier Dates Kellee Ponce - [id number] - [id number] Start: 08-21-2023 Goals Date Patient Goal Desired Activity /State Functional Status Date Assessment Result Facility 12-13-2023 Functional Status N/A [facility] 12-01-2023 Functional Status N/A [facility] 11-27-2023 Functional Status N/A [facility] 11-24-2023 Functional Status N/A [facility] 11-05-2023 Functional Status N/A [facility] 10-30-2023 Functional Status N/A [facility] 10-26-2023 Functional Status N/A [facility] 10-04-2023 Functional Status N/A [facility] 09-25-2023 Functional Status N/A [facility] 09-21-2023 Functional Status N/A [facility] 09-20-2023 Functional Status N/A [facility] 09-17-2023 Functional Status N/A [facility] 09-09-2023 Functional Status N/A [facility] 09-06-2023 Functional Status N/A [facility] 09-02-2023 Functional Status N/A [facility] 08-30-2023 Functional Status N/A [facility] 08-15-2023 Functional Status N/A [facility] 08-14-2023 Functional Status N/A [facility] 08-12-2023 Functional Status N/A [facility] 08-05-2023 Functional Status N/A [facility] 08-02-2023 Functional Status N/A [facility] 07-31-2023 Functional Status N/A [facility] 07-26-2023 Functional Status N/A [facility] 07-17-2023 Functional Status N/A [facility] 07-15-2023 Functional Status N/A [facility] 07-14-2023 Functional Status N/A [facility] 07-11-2023 Functional Status N/A [facility] 07-06-2023 Functional Status N/A [facility] 06-29-2023 Functional Status N/A [facility] 06-27-2023 Functional Status N/A [facility] 06-24-2023 Functional Status N/A [facility] 06-22-2023 Functional Status N/A [facility] 06-15-2023 Functional Status N/A [facility] 06-11-2023 Functional Status N/A [facility] 06-03-2023 Functional Status N/A [facility] 05-31-2023 Functional Status N/A [facility] 05-26-2023 Functional Status N/A [facility] 05-24-2023 Functional Status N/A [facility] 05-16-2023 Functional Status N/A [facility] 05-14-2023 Functional Status N/A [facility] 05-12-2023 Functional Status N/A [facility] 05-11-2023 Functional Status N/A [facility] 05-08-2023 Functional Status N/A [facility] 04-26-2023 Functional Status N/A [facility] 04-22-2023 Functional Status N/A [facility] 04-11-2023 Functional Status N/A [facility] 04-10-2023 Functional Status N/A [facility] 04-05-2023 Functional Status N/A [facility] 04-02-2023 Functional Status N/A [facility] 03-26-2023 Functional Status N/A [facility] 03-23-2023 Functional Status N/A [facility] 03-20-2023 Functional Status N/A [facility] 03-11-2023 Functional Status N/A [facility] 02-12-2023 Functional Status N/A [facility] 02-07-2023 Functional Status N/A [facility] 01-29-2023 Functional Status N/A [facility] 01-22-2023 Functional Status N/A [facility] 01-14-2023 Functional Status N/A [facility] 01-12-2023 Functional Status N/A [facility] 01-10-2023 Functional Status N/A [facility] 01-04-2023 Functional Status N/A [facility] 01-02-2023 Functional Status N/A [facility] 12-26-2022 Functional Status N/A [facility] 12-23-2022 Functional Status N/A [facility] 12-18-2022 Functional Status N/A [facility] 12-13-2022 Functional Status N/A [facility] 12-12-2022 Functional Status N/A [facility] 12-07-2022 Functional Status N/A [facility] 09-04-2022 Functional Status N/A [facility] Clinical Notes 02-15-2021 to 12-13-2023 Cheyanne Powers RN - 12/04/2023 11:32 PM Cheyanne Collins RN - 12/04/2023 11:32 PM Ilya Collins RN - 12/04/2023 10:40 PM Ben Adhikari MD - 12/04/2023 10:14 PM EDT Note Date & Type Note Facility 12-13-2023 Hospital Discharg e instructions Patient Education 12/13/2023 14:15:46 Allergies, Adult, [id number] Allergies, Adult An allergy is when your body reacts to something that bothers it (allergen). Allergies often affect the nose, eyes, skin, and stomach. They cannot spread from person to person. Allergies can start at any age. Sometimes, they go away as you get older. What are the causes? Outdoor things, like pollen, car fumes, and mold. Indoor things, like dust, smoke, mold, and pets. Foods. Medicines. Things that bother your skin. These include perfumes and bug bites. What increases the risk? Having family members with allergies or asthma. What are the signs or symptoms? Allergies may cause: A runny nose, stuffy nose, or sneezing. An itchy mouth, ears, or throat. A feeling of mucus dripping down the back of your throat. A sore throat. Eyes that itch or are red, watery, or puffy. A skin rash or red, swollen areas of skin (hives). Stomach cramps or bloating. If you have a very bad allergic reaction (anaphylactic reaction) to food, medicine, or bug bites, you may also have: A red face. Coughing. Swollen lips, tongue, or mouth. A tight or swollen throat. Chest pain. Your chest may feel tight. Your heart may beat too fast. Trouble breathing. Pain in your belly (abdomen). You may vomit or have watery poop (diarrhea). Fainting. Or you may feel dizzy. If you have a very bad reaction to an allergy, you should get help right away. How is this treated? You may need to use: ?Cold, wet cloths. These can help with itching and swelling. ?Eye drops, nose sprays, or skin creams. ?A saline solution to wash out your nose. Saline solutions are made of salt and water. ?A humidifier. ?Medicines. You may need to change the foods you eat. You may be given allergy shots, or a small bit of the allergen may be put under your tongue. These treatments can help your body get used to the allergen. If you have a very bad allergic reaction, you may need to use an auto-injector pen. ?An auto-injector pen is a device filled with medicine. It gives you an emergency shot of epinephrine. ?Your doctor will teach you how to use it. Follow these instructions at home: Medicines Take or apply iuzc-tty-xwhcgoy and prescription medicines only as told by your doctor. Keep an auto-injector pen with you all the time if you might have a very bad allergic reaction. Eating and drinking Follow instructions from your doctor about what you may eat and drink. Drink enough fluid to keep your pee (urine) pale yellow. General instructions If you have ever had a bad reaction, wear a medical alert bracelet or necklace. Stay away from the things you are allergic to. Keep all follow-up visits. Your doctor will check on how you are doing and talk about treatment options with you. Contact a doctor if: You do not get better with treatment. Get help right away if: You have a very bad allergic reaction. You use your auto-injector pen. You must go to the hospital even if the medicine seems to be working. These symptoms may be an emergency. Use the auto-injector pen right away. Then call 911. Do not wait to see if the symptoms will go away. Do not drive yourself to the hospital. This information is not intended to replace advice given to you by your health care provider. Make sure you discuss any questions you have with your health care provider. Document Revised: 11/21/2022 Document Reviewed: 11/21/2022 [employer] Patient Education 2023 [employer]. Follow Up Care 12/13/2023 13:35:05 With:Cheyanne Rosas Address: [address] [place] [address] Business (1) When:12/16/2023 14:02:00 [facility] 12-13-2023 Note ED Note-Nursing Pt left prior to dc papers and education [facility] 12-13-2023 Note ED Patient Education Note Immunology Allergies, Adult An allergy is when your body reacts to something that bothers it (allergen). Allergies often affect the nose, eyes, skin, and stomach. They cannot spread from person to person. Allergies can start at any age. Sometimes, they go away as you get older. What are the causes? ? Outdoor things, like pollen, car fumes, and mold. ? Indoor things, like dust, smoke, mold, and pets. ? Foods. ? Medicines. ? Things that bother your skin. These include perfumes and bug bites. What increases the risk? ? Having family members with allergies or asthma. What are the signs or symptoms? Allergies may cause: ? A runny nose, stuffy nose, or sneezing. ? An itchy mouth, ears, or throat. ? A feeling of mucus dripping down the back of your throat. ? A sore throat. ? Eyes that itch or are red, watery, or puffy. ? A skin rash or red, swollen areas of skin (hives). ? Stomach cramps or bloating. If you have a very bad allergic reaction (anaphylactic reaction) to food, medicine, or bug bites, you may also have: ? A red face. ? Coughing. ? Swollen lips, tongue, or mouth. ? A tight or swollen throat. ? Chest pain. Your chest may feel tight. Your heart may beat too fast. ? Trouble breathing. ? Pain in your belly (abdomen). You may vomit or have watery poop (diarrhea). ? Fainting. Or you may feel dizzy. If you have a very bad reaction to an allergy, you should get help right away. How is this treated? ? You may need to use: ? Cold, wet cloths. These can help with itching and swelling. ? Eye drops, nose sprays, or skin creams. ? A saline solution to wash out your nose. Saline solutions are made of salt and water. ? A humidifier. ? Medicines. ? You may need to change the foods you eat. ? You may be given allergy shots, or a small bit of the allergen may be put under your tongue. These treatments can help your body get used to the allergen. ? If you have a very bad allergic reaction, you may need to use an auto-injector pen. ? An auto-injector pen is a device filled with medicine. It gives you an emergency shot of epinephrine. ? Your doctor will teach you how to use it. Follow these instructions at home: Medicines ? Take or apply fffk-iez-qpefklm and prescription medicines only as told by your doctor. ? Keep an auto-injector pen with you all the time if you might have a very bad allergic reaction. Eating and drinking ? Follow instructions from your doctor about what you may eat and drink. ? Drink enough fluid to keep your pee (urine) pale yellow. General instructions ? If you have ever had a bad reaction, wear a medical alert bracelet or necklace. ? Stay away from the things you are allergic to. ? Keep all follow-up visits. Your doctor will check on how you are doing and talk about treatment options with you. Contact a doctor if: ? You do not get better with treatment. Get help right away if: ? You have a very bad allergic reaction. ? You use your auto-injector pen. You must go to the hospital even if the medicine seems to be working. These symptoms may be an emergency. Use the auto-injector pen right away. Then call 911. ? Do not wait to see if the symptoms will go away. ? Do not drive yourself to the hospital. This information is not intended to replace advice given to you by your health care provider. Make sure you discuss any questions you have with your health care provider. Document Revised: 11/21/2022 Document Reviewed: 11/21/2022 [employer] Patient Education ? 2023 [employer]. [facility] 12-05-2023 Note ED Patient Education Note Dermatology Wound Care, Adult Taking care of your wound properly can help to prevent pain, infection, and scarring. It can also help your wound heal more quickly. Follow instructions from your health care provider about how to care for your wound. Supplies needed: ? Soap and water. ? Wound cleanser, saline, or germ-free (sterile) water. ? Gauze. ? If needed, a clean bandage (dressing) or other type of wound dressing material to cover or place in the wound. Follow your health care provider's instructions about what dressing supplies to use. ? Cream or topical ointment to apply to the wound, if told by your health care provider. How to care for your wound Cleaning the wound Ask your health care provider how to clean the wound. This may include: ? Using mild soap and water, a wound cleanser, saline, or sterile water. ? Using a clean gauze to pat the wound dry after cleaning it. Do not rub or scrub the wound. Dressing care ? Wash your hands with soap and water for at least 20 seconds before and after you change the dressing. If soap and water are not available, use hand compounding and finishing supervisor. ? Change your dressing as told by your health care provider. This may include: ? Cleaning or rinsing out (irrigating) the wound. ? Application of cream or topical ointment, if told by your health care provider. ? Placing a dressing over the wound or in the wound (packing). ? Covering the wound with an outer dressing. ? Leave stitches (sutures), yue, skin glue, or adhesive strips in place. These skin closures may need to stay in place for 2 weeks or longer. If adhesive strip edges start to loosen and curl up, you may trim the loose edges. Do not remove adhesive strips completely unless your health care provider tells you to do that. ? Ask your health care provider when you can leave the wound uncovered. Checking for infection Check your wound area every day for signs of infection. Check for: ? More redness, swelling, or pain. ? Fluid or blood. ? Warmth. ? Pus or a bad smell. Follow these instructions at home Medicines ? If you were prescribed an antibiotic medicine, cream, or ointment, take or apply it as told by your health care provider. Do not stop using the antibiotic even if your condition improves. ? If you were prescribed pain medicine, take it 30 minutes before you do any wound care or as told by your health care provider. ? Take hhyy-vxb-vjbgwsh and prescription medicines only as told by your health care provider. Eating and drinking ? Eat a diet that includes protein, vitamin A, vitamin C, and other nutrient-rich foods to help the wound heal. ? Foods rich in protein include meat, fish, eggs, dairy, beans, and nuts. ? Foods rich in vitamin A include carrots and dark green, leafy vegetables. ? Foods rich in vitamin C include citrus fruits, tomatoes, broccoli, and peppers. ? Drink enough fluid to keep your urine pale yellow. General instructions ? Do not take baths, swim, or use a hot tub until your health care provider approves. Ask your health care provider if you may take showers. You may only be allowed to take sponge baths. ? Do not scratch or pick at the wound. Keep it covered as told by your health care provider. ? Return to your normal activities as told by your health care provider. Ask your health care provider what activities are safe for you. ? Protect your wound from the sun when you are outside for the first 6 months, or for as long as told by your health care provider. Cover up the scar area or apply sunscreen that has an SPF of at least 30. ? Do not use any products that contain nicotine or tobacco. These products include cigarettes, chewing tobacco, and vaping devices, such as e-cigarettes. If you need help quitting, ask your health care provider. ? Keep all follow-up visits. This is important. Contact a health care provider if: ? You received a tetanus shot and you have swelling, severe pain, redness, or bleeding at the injection site. ? Your pain is not controlled with medicine. ? You have any of these signs of infection: ? More redness, swelling, or pain around the wound. ? Fluid or blood coming from the wound. ? Warmth coming from the wound. ? A fever or chills. ? You are nauseous or you vomit. ? You are dizzy. ? You have a new rash or hardness around the wound. Get help right away if: ? You have a red streak of skin near the area around your wound. ? Pus or a bad smell coming from the wound. ? Your wound has been closed with yue, sutures, skin glue, or adhesive strips and it begins to open up and separate. ? Your wound is bleeding, and the bleeding does not stop with gentle pressure. These symptoms may represent a serious problem that is an emergency. Do not wait to see if the symptoms will go away. Get medical help right away. Call your local emergency services (911 in the [place] Do not drive yourself to the h (more content not included)... [facility] 12-04-2023 Emergency department Note Patient discharged to home, alert and oriented, skin warm, dry and pink. Denies needs and or questions. Will follow-up as directed, patient encouraged to return for worsening or new symptoms or other concerns. [facility] 12-04-2023 Emergency department Note Patient discharged to home, alert and oriented, skin warm, dry and pink. Denies needs and or questions. Will follow-up as directed, patient encouraged to return for worsening or new symptoms or other concerns. Pt to CT I have seen Jerad Tracy with the [...] see documentation by the [facility] for full H&P, emergency department evaluation, and medical decision-making. 48-year-old female with history of previous spine stimulator which unfortunately got infected and was recently removed. Was driving through the area and having severe pain. Her previous surgeries were done in the [place] area at the [facility]. Because of the severe pain she presents to the emergency department today. Review of her records demonstrates multiple recent imaging modalities which are able to be reviewed through care everywhere, including MRI and CT of her lumbar spine. She did have noted fluid collections. She also had recent labs which showed normal kidney function, most recently on November 16. Will obtain repeat CT imaging, and obtain outside images for radiology comparison. Electronically signed by: Ben Urbina MD, 12/04/2023 10:14 PM Patient arrives ambulatory to triage with c/o back pain. Patient states she had a stimulator removed a month ago, just completed a 10 hour car ride and thinks that aggravated her back. A&Ox4. Images from the original note were not included. TRIAGE CHIEF COMPLAINT: Chief Complaint Patient presents with Back Pain HPI: Jerad Tracy is a 48 year old female who presents to the emergency department with back pain. Patient reports tonight when she was in a car driving back home from [place] to [place]. Started to have severe low back pain which prompted her ED visit. Patient reports in September she had pain stimulator in her back removed due to infection. Patient reports she was on antibiotics for 6 weeks and finished her treatment course on November 27. Patient denies any trauma falls or injury. She denies bowel or bladder retention or incontinence or saddle anesthesia. She has not been taking any medicine for relief of her pain. Patient states she has a office appointment with her spine surgeon Dr. Adams at [facility] this Saturday. Pain is 9/10. REVIEW OF SYSTEMS: Review of Systems All other systems reviewed and are negative. PAST MEDICAL HISTORY: History reviewed. No pertinent past medical history. FAMILY HISTORY: History reviewed. No pertinent family history. SOCIAL HISTORY: Social History Socioeconomic History Marital status: Legally Spouse name: Not on file Number of children: Not on file Years of education: Not on file Highest education level: Not on file Occupational History Not on file Tobacco Use Smoking status: Every Day Current packs/day: 0.50 Types: Cigarettes Smokeless tobacco: Never Substance and Sexual Activity Alcohol use: Not on file Drug use: Never Sexual activity: Not on file Other Topics Concern Not on file Social History Narrative Not on file Social Determinants of Health Financial Resource Strain: Low Risk (11/17/2023) Received from [facility] Overall Financial Resource Strain (CARDIA) Difficulty of Paying Living Expenses: Not hard at all Food Insecurity: Patient Declined (10/11/2023) Received from [facility] Hunger Vital Sign Worried About Running Out of Food in the Last Year: Patient declined Ran Out of Food in the Last Year: Patient declined Transportation Needs: No Transportation Needs (11/17/2023) Received from [facility] PRAPARE - Transportation Lack of Transportation (Medical): No Lack of Transportation (Non-Medical): No Physical Activity: Patient Declined (10/11/2023) Received from [facility] Exercise Vital Sign Days of Exercise per Week: Patient declined Minutes of Exercise per Session: Patient declined Stress: Patient Declined (10/11/2023) Received from [facility] [place] [facility] [employer] [facility] - Occupational Stress Questionnaire Feeling of Stress : Patient declined Social Connections: Patient Declined (10/11/2023) Received from [facility] Social Connection and Isolation Panel [NHANES] Frequency of Communication with Friends and Family: Patient declined Frequency of Social Gatherings with Friends and Family: Patient declined Attends Mormon Services: Patient declined Active Member of Clubs or Organizations: Patient declined Attends Club or Organization Meetings: Patient declined Marital Status: Patient declined Intimate Partner Violence: Patient Declined (10/11/2023) Received from [facility] Humiliation, Afraid, Rape, and Kick questionnaire Fear of Current or Ex-Partner: Patient declined Emotionally Abused: Patient declined Physically Abused: Patient declined Sexually Abused: Patient declined Housing Stability: Low Risk (11/17/2023) Received from [facility] Housing Stability Vital Sign Unable to Pay for Housing in the Last Year: No Number of Times Moved in the Last Year: 1 Homeless in the Last Year: No SURGICAL HISTORY: History reviewed. No pertinent surgical history. CURRENT MEDICATIONS: No current facility-administered medications for this encounter. Current Outpatient Medications: methocarbamoL (ROBAXIN) 500 mg tablet, Take 2 Tab by mouth two times a day as needed for up to 7 days, Disp: 28 Tab, Rfl: 0 cyclobenzaprine (FLEXERIL) 5 mg tablet, Take 1 Tab by mouth three times a day for 3 days, Disp: 9 Tab, Rfl: 0 ketorolac (TORADOL) 10 mg [...] a day, Disp: 10 Tab, Rfl: 0 ALLERGIES: Hydrocodone-acetaminophen and Penicillin g PHYSICAL EXAM: VITAL SIGNS: Vitals: 12/04/23 2154 12/04/23 2155 12/04/23 2239 12/04/23 2301 BP: (!) 125/91 137/75 117/69 Pulse: 92 89 77 Resp: 18 16 Temp: 98.2 F (36.8 C) SpO2: 99% 97% 96% Physical Exam Constitutional: General: She is not in acute distress. Appearance: Normal appearance. HENT: Head: Normocephalic and atraumatic. Cardiovascular: Rate and Rhythm: Normal rate and regular rhythm. Heart sounds: No murmur heard. No friction rub. No gallop. Pulmonary: Effort: Pulmonary effort is normal. No respiratory distress. Breath sounds: No wheezing, rhonchi or rales. Musculoskeletal: Cervical back: No bony tenderness. Normal range of motion. Thoracic back: No bony tenderness. Normal range of motion. Lumbar back: Bony tenderness present. Normal range of motion. Back: Neurological: Mental Status: She is alert. MEDICATIONS GIVEN IN ED: Medications morphine injection syringe 4 mg (4 mg IV Push Given 12/04/232235) saline flush (1 Syringe IV Push Given 12/04/232243) iohexoL (OMNIPAQUE) 350 mg iodine/mL intravenous solution 100 mL (100 mL IV Push Given 12/04/232242) methocarbamoL (ROBAXIN) tablet 1,000 mg (1,000 mg Oral Given 12/04/23 2304) ABNORMAL LABS: Labs Reviewed - No data to display IMAGING: CT SPINE LUMBAR WITH CONTRAST Final Result IMPRESSION: 1. Nonspecific posterior lumbar subcutaneous fat stranding without discrete fluid collection. 2. 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 3. Incidental bilateral adrenal nodules (indeterminate on the basis of this examination); consider dedicated adrenal imaging. Keke Beebe D.O.Workstation ID:[id number] ED COURSE / MEDICAL DECISION MAKING: Jerad Tarcy is a 48 year old female who presents to the emergency department with back pain. Patient reports tonight when she was in a car driving back home from [place] to [place]. Started to have severe low back pain which prompted her ED visit. Patient reports in September she had pain stimulator in her back removed due to infection. Patient reports she was on antibiotics for 6 weeks and finished her treatment course on November 27. Patient denies any trauma falls or injury. She denies bowel or bladder retention or incontinence or saddle anesthesia. She has not been taking any medicine for relief of her pain. Patient states she has a office appointment with her spine surgeon Dr. Adams at [facility] in [place] this Saturday. Pain is 9/10. DDX: Epidural abscess, cellulitis, cauda equina, lumbar fracture, herniated disc, lumbar radiculopathy, any other emergent pathology ED Course as of 12/04/23 2316 Wed Dec 04, [address] Spine Lumbar With Contrast IMPRESSION: Nonspecific posterior lumbar subcutaneous fat stranding without discrete fluid collection. 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 Incidental bilateral adrenal nodules (indeterminate on the basis of this examination); consider dedicated adrenal imaging. During ED course patient remained hemodynamically stable. Tonight when she was riding in a car going back home to [place] when she had dehiscence of her surgical site in her lumbar spine and started to have back pain which prompted her ED visit. Denies any red flag symptoms fall trauma or injury. On examination there is partial dehiscence of the lumbar spine from the surgical site. Patient had spine surgery in September in [place] with Dr. Adams due to infection of pain stimulator. In the ED given morphine and Robaxin. Workup in ED as stated above. On reevaluation patient is lying in bed comfortably. Prescribe Robaxin and Flexeril. Patient has office appointment with her spine surgeon this Saturday. Instructed patient to follow-up with her spine physician. Patient discharged. Instructed to follow up with PCP. Given strict ED return precautions for any new/worsen symptoms. Patient expressed understanding and is in agreement. Patient otherwise safe for discharge at this time, vital signs are normal, patient afebrile, nontoxic in appearance. FINAL IMPRESSION: 1. Dehiscence of wound of skin, initial encounter 2. Low back pain, unspecified back pain laterality, unspecified chronicity, unspecified whether sciatica present I have personally seen and examined this patient. I have fully participated in the care of this patient and I have reviewed and agree with all pertinent clinical information including history, physical exam, and plan. I have also reviewed and agree with the medications, allergies and past medical history section for this patient. The patient was staffed with Ben Urbina MD providers found who interviewed and examined the patient and is agreement with the plan of care and disposition of this patient. Electronically signed by: Nighat Bailey PA-C, 12/04/2023 11:16 PM documented in this encounter [facility] 12-04-2023 Hospital Discharg e instructions Nighat Bailey PA-C - 12/04/2023 11:12 PM EDT Take Robaxin and Flexeril as directed for pain While take these medications do not drive vehicle Follow-up with your spine surgeon Saturday at your office appointment If there are any new/worsening symptoms with return to the emergency room The following attachments cannot be sent through Care Everywhere.Methocarbamol, ADULT (Serbian)Back Pain (Serbian)Cyclobenzaprine, ADULT (Serbian)documented in this encounter [facility] 12-04-2023 Emergency department Note Pt to CT [facility] 12-04-2023 Physician Emergency department Note I have seen Jerad Tracy with the [...] see documentation by the [facility] for full H&P, emergency department evaluation, and medical decision-making. 48-year-old female with history of previous spine stimulator which unfortunately got infected and was recently removed. Was driving through the area and having severe pain. Her previous surgeries were done in the [place] area at the [facility]. Because of the severe pain she presents to the emergency department today. Review of her records demonstrates multiple recent imaging modalities which are able to be reviewed through care everywhere, including MRI and CT of her lumbar spine. She did have noted fluid collections. She also had recent labs which showed normal kidney function, most recently on November 16. Will obtain repeat CT imaging, and obtain outside images for radiology comparison. Electronically signed by: Ben Urbina MD, 12/04/2023 10:14 PM [facility] Work Phone: 12-04-2023 Emergency department Note Patient arrives ambulatory to triage with c/o back pain. Patient states she had a stimulator removed a month ago, just completed a 10 hour car ride and thinks that aggravated her back. A&Ox4. [facility] 12-04-2023 Physician Emergency department Note Images from the original note were not included. TRIAGE CHIEF COMPLAINT: Chief Complaint Patient presents with Back Pain HPI: Jerad Tracy is a 48 year old female who presents to the emergency department with back pain. Patient reports tonight when she was in a car driving back home from [place] to [place]. Started to have severe low back pain which prompted her ED visit. Patient reports in September she had pain stimulator in her back removed due to infection. Patient reports she was on antibiotics for 6 weeks and finished her treatment course on November 27. Patient denies any trauma falls or injury. She denies bowel or bladder retention or incontinence or saddle anesthesia. She has not been taking any medicine for relief of her pain. Patient states she has a office appointment with her spine surgeon Dr. Adams at [facility] this Saturday. Pain is 9/10. REVIEW OF SYSTEMS: Review of Systems All other systems reviewed and are negative. PAST MEDICAL HISTORY: History reviewed. No pertinent past medical history. FAMILY HISTORY: History reviewed. No pertinent family history. SOCIAL HISTORY: Social History Socioeconomic History Marital status: Legally Spouse name: Not on file Number of children: Not on file Years of education: Not on file Highest education level: Not on file Occupational History Not on file Tobacco Use Smoking status: Every Day Current packs/day: 0.50 Types: Cigarettes Smokeless tobacco: Never Substance and Sexual Activity Alcohol use: Not on file Drug use: Never Sexual activity: Not on file Other Topics Concern Not on file Social History Narrative Not on file Social Determinants of Health Financial Resource Strain: Low Risk (11/17/2023) Received from [facility] Overall Financial Resource Strain (CARDIA) Difficulty of Paying Living Expenses: Not hard at all Food Insecurity: Patient Declined (10/11/2023) Received from [facility] Hunger Vital Sign Worried About Running Out of Food in the Last Year: Patient declined Ran Out of Food in the Last Year: Patient declined Transportation Needs: No Transportation Needs (11/17/2023) Received from [facility] PRAPARE - Transportation Lack of Transportation (Medical): No Lack of Transportation (Non-Medical): No Physical Activity: Patient Declined (10/11/2023) Received from [facility] Exercise Vital Sign Days of Exercise per Week: Patient declined Minutes of Exercise per Session: Patient declined Stress: Patient Declined (10/11/2023) Received from [facility] [place] [facility] [place] - Occupational Stress Questionnaire Feeling of Stress : Patient declined Social Connections: Patient Declined (10/11/2023) Received from [facility] Social Connection and Isolation Panel [NHANES] Frequency of Communication with Friends and Family: Patient declined Frequency of Social Gatherings with Friends and Family: Patient declined Attends Mormon Services: Patient declined Active Member of Clubs or Organizations: Patient declined Attends Club or Organization Meetings: Patient declined Marital Status: Patient declined Intimate Partner Violence: Patient Declined (10/11/2023) Received from [facility] Humiliation, Afraid, Rape, and Kick questionnaire Fear of Current or Ex-Partner: Patient declined Emotionally Abused: Patient declined Physically Abused: Patient declined Sexually Abused: Patient declined Housing Stability: Low Risk (11/17/2023) Received from [facility] Housing Stability Vital Sign Unable to Pay for Housing in the Last Year: No Number of Times Moved in the Last Year: 1 Homeless in the Last Year: No SURGICAL HISTORY: History reviewed. No pertinent surgical history. CURRENT MEDICATIONS: No current facility-administered medications for this encounter. Current Outpatient Medications: methocarbamoL (ROBAXIN) 500 mg tablet, Take 2 Tab by mouth two times a day as needed for up to 7 days, Disp: 28 Tab, Rfl: 0 cyclobenzaprine (FLEXERIL) 5 mg tablet, Take 1 Tab by mouth three times a day for 3 days, Disp: 9 Tab, Rfl: 0 ketorolac (TORADOL) 10 mg [...] a day, Disp: 10 Tab, Rfl: 0 ALLERGIES: Hydrocodone-acetaminophen and Penicillin g PHYSICAL EXAM: VITAL SIGNS: Vitals: 12/04/23 2154 12/04/23 2155 12/04/23 2239 12/04/23 2301 BP: (!) 125/91 137/75 117/69 Pulse: 92 89 77 Resp: 18 16 Temp: 98.2 F (36.8 C) SpO2: 99% 97% 96% Physical Exam Constitutional: General: She is not in acute distress. Appearance: Normal appearance. HENT: Head: Normocephalic and atraumatic. Cardiovascular: Rate and Rhythm: Normal rate and regular rhythm. Heart sounds: No murmur heard. No friction rub. No gallop. Pulmonary: Effort: Pulmonary effort is normal. No respiratory distress. Breath sounds: No wheezing, rhonchi or rales. Musculoskeletal: Cervical back: No bony tenderness. Normal range of motion. Thoracic back: No bony tenderness. Normal range of motion. Lumbar back: Bony tenderness present. Normal range of motion. Back: Neurological: Mental Status: She is alert. MEDICATIONS GIVEN IN ED: Medications morphine injection syringe 4 mg (4 mg IV Push Given 12/04/232235) saline flush (1 Syringe IV Push Given 12/04/232243) iohexoL (OMNIPAQUE) 350 mg iodine/mL intravenous solution 100 mL (100 mL IV Push Given 12/04/232242) methocarbamoL (ROBAXIN) tablet 1,000 mg (1,000 mg Oral Given 12/04/232303) ABNORMAL LABS: Labs Reviewed - No data to display IMAGING: CT SPINE LUMBAR WITH CONTRAST Final Result IMPRESSION: 1. Nonspecific posterior lumbar subcutaneous fat stranding without discrete fluid collection. 2. 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 3. Incidental bilateral adrenal nodules (indeterminate on the basis of this examination); consider dedicated adrenal imaging. Keke Beebe D.O.Workstation ID:[id number] ED COURSE / MEDICAL DECISION MAKING: Jerad Tracy is a 48 year old female who presents to the emergency department with back pain. Patient reports tonight when she was in a car driving back home from [place] to [place]. Started to have severe low back pain which prompted her ED visit. Patient reports in September she had pain stimulator in her back removed due to infection. Patient reports she was on antibiotics for 6 weeks and finished her treatment course on November 27. Patient denies any trauma falls or injury. She denies bowel or bladder retention or incontinence or saddle anesthesia. She has not been taking any medicine for relief of her pain. Patient states she has a office appointment with her spine surgeon Dr. Adams at [facility] in [place] this Saturday. Pain is 9/10. DDX: Epidural abscess, cellulitis, cauda equina, lumbar fracture, herniated disc, lumbar radiculopathy, any other emergent pathology ED Course as of 12/04/23 2316 Wed Dec 04, [address] Spine Lumbar With Contrast IMPRESSION: Nonspecific posterior lumbar subcutaneous fat stranding without discrete fluid collection. 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 Incidental bilateral adrenal nodules (indeterminate on the basis of this examination); consider dedicated adrenal imaging. During ED course patient remained hemodynamically stable. Tonight when she was riding in a car going back home to [place] when she had dehiscence of her surgical site in her lumbar spine and started to have back pain which prompted her ED visit. Denies any red flag symptoms fall trauma or injury. On examination there is partial dehiscence of the lumbar spine from the surgical site. Patient had spine surgery in September in [place] with Dr. Adams due to infection of pain stimulator. In the ED given morphine and Robaxin. Workup in ED as stated above. On reevaluation patient is lying in bed comfortably. Prescribe Robaxin and Flexeril. Patient has office appointment with her spine surgeon this Saturday. Instructed patient to follow-up with her spine physician. Patient discharged. Instructed to follow up with PCP. Given strict ED return precautions for any new/worsen symptoms. Patient expressed understanding and is in agreement. Patient otherwise safe for discharge at this time, vital signs are normal, patient afebrile, nontoxic in appearance. FINAL IMPRESSION: 1. Dehiscence of wound of skin, initial encounter 2. Low back pain, unspecified back pain laterality, unspecified chronicity, unspecified whether sciatica present I have personally seen and examined this patient. I have fully participated in the care of this patient and I have reviewed and agree with all pertinent clinical information including history, physical exam, and plan. I have also reviewed and agree with the medications, allergies and past medical history section for this patient. The patient was staffed with Ben Urbina MD providers found who interviewed and examined the patient and is agreement with the plan of care and disposition of this patient. Electronically signed by: Nighat Bailey PA-C, 12/04/2023 11:16 PM [facility] 12-01-2023 Hospital Discharg e instructions Patient Education 12/01/2023 14:28:11 Hypokalemia Hypokalemia Hypokalemia means that the amount of potassium in the blood is lower than normal. Potassium is a mineral (electrolyte) that helps regulate the amount of fluid in the body. It also stimulates muscle tightening (contraction) and helps nerves work properly. Normally, most of the body's potassium is inside cells, and only a very small amount is in the blood. Because the amount in the blood is so small, minor changes to potassium levels in the blood can be life-threatening. What are the causes? This condition may be caused by: Antibiotic medicine. Diarrhea or vomiting. Taking too much of a medicine that helps you have a bowel movement (laxative) can cause diarrhea and lead to hypokalemia. Chronic kidney disease (CKD). Medicines that help the body get rid of excess fluid (diuretics). Eating disorders, such as anorexia or bulimia. Low magnesium levels in the body. Sweating a lot. What are the signs or symptoms? Symptoms of this condition include: Weakness. Constipation. Fatigue. Muscle cramps. Mental confusion. Skipped heartbeats or irregular heartbeat (palpitations). Tingling or numbness. How is this diagnosed? This condition is diagnosed with a blood test. How is this treated? This condition may be treated by: Taking potassium supplements. Adjusting the medicines that you take. Eating more foods that contain a lot of potassium. If your potassium level is very low, you may need to get potassium through an IV and be monitored in the hospital. Follow these instructions at home: Eating and drinking Eat a healthy diet. A healthy diet includes fresh fruits and vegetables, whole grains, healthy fats, and lean proteins. If told, eat more foods that contain a lot of potassium. These include: ?Nuts, such as peanuts and pistachios. ?Seeds, such as sunflower seeds and pumpkin seeds. ?Peas, lentils, and gomez beans. ?Whole grain and bran cereals and breads. ?Fresh fruits and vegetables, such as apricots, avocado, bananas, cantaloupe, kiwi, oranges, tomatoes, asparagus, and potatoes. ?Juices, such as orange, tomato, and prune. ?Lean meats, including fish. ?Milk and milk products, such as yogurt. General instructions Take [id number] and prescription medicines only as told by your health care provider. This includes vitamins, natural food products, and supplements. Keep all follow-up visits. This is important. Contact a health care provider if: You have weakness that gets worse. You feel your heart pounding or racing. You vomit. You have diarrhea. You have diabetes and you have trouble keeping your blood sugar in your target range. Get help right away if: You have chest pain. You have shortness of breath. You have vomiting or diarrhea that lasts for more than 2 days. You faint. These symptoms may be an emergency. Get help right away. Call 911. Do not wait to see if the symptoms will go away. Do not drive yourself to the hospital. Summary Hypokalemia means that the amount of potassium in the blood is lower than normal. This condition is diagnosed with a blood test. Hypokalemia may be treated by taking potassium supplements, adjusting the medicines that you take, or eating more foods that are high in potassium. If your potassium level is very low, you may need to get potassium through an IV and be monitored in the hospital. This information is not intended to replace advice given to you by your health care provider. Make sure you discuss any questions you have with your health care provider. Document Revised: 11/23/2021 Document Reviewed: 11/23/2021 [employer] Patient Education 2023 [employer]. 12/01/2023 14:28:11 Flank Pain, Adult, [id number] Flank Pain, Adult Flank pain is pain in your side. The flank is the area on your side between your upper belly (abdomen) and your spine. The pain may occur over a short time (acute), or it may be long-term or come back often (chronic). It may be mild or very bad. Pain in this area can be caused by many different things. Follow these instructions at home: Drink enough fluid to keep your pee (urine) pale yellow. Rest as told by your doctor. Take [id number] and prescription medicines only as told by your doctor. Keep a journal to keep track of: ?What has caused your flank pain. ?What has made your flank pain feel better. Keep all follow-up visits. Contact a doctor if: Medicine does not help your pain. You have new symptoms. Your pain gets worse. Your symptoms last longer than 2 3 days. You have trouble peeing. You are peeing more often than normal. Get help right away if: You have trouble breathing. You are short of breath. Your belly hurts, or it is swollen or red. You feel like you may vomit (nauseous). You vomit. You feel faint, or you faint. You have blood in your pee. You have flank pain and a fever. These symptoms may be an emergency. Get help right away. Call your local emergency services (911 in the [place] Do not wait to see if the symptoms will go away. Do not drive yourself to the hospital. Summary Flank pain is pain in your side. The flank is the area of your side between your upper belly (abdomen) and your spine. Flank pain may occur over a short time (acute), or it may be long-term or come back often (chronic). It may be mild or very bad. Pain in this area can be caused by many different things. Contact your doctor if your symptoms get worse or last longer than 2 3 days. This information is not intended to replace advice given to you by your health care provider. Make sure you discuss any questions you have with your health care provider. Document Revised: 05/22/2021 Document Reviewed: 05/22/2021 [employer] Patient Education 2023 [employer] 12/01/2023 14:28:11 Abdominal Pain, Adult, Aino-qz-Lapu Abdominal Pain, Adult Many things can cause belly (abdominal) pain. In most cases, belly pain is not a serious problem and can be watched and treated at home. But in some cases, it can be serious. Your doctor will try to find the cause of your belly pain. Follow these instructions at home: Medicines Take avsi-ryf-mbaymku and prescription medicines only as told by your doctor. Do not take medicines that help you poop (laxatives) unless told by your doctor. General instructions Watch your belly pain for any changes. Tell your doctor if the pain gets worse. Drink enough fluid to keep your pee (urine) pale yellow. Contact a doctor if: Your belly pain changes or gets worse. You have very bad cramping or bloating in your belly. You vomit. Your pain gets worse with meals, after eating, or with certain foods. You have trouble pooping or have watery poop for more than 2 3 days. You are not hungry, or you lose weight without trying. You have signs of not getting enough fluid or water (dehydration). These may include: ?Dark pee, very little pee, or no pee. ?Cracked lips or dry mouth. ?Feeling sleepy or weak. You have pain when you pee or poop. Your belly pain wakes you up at night. You have blood in your pee. You have a fever. Get help right away if: You cannot stop vomiting. Your pain is only in one part of your belly, like on the right side. You have bloody or black poop, or poop that looks like tar. You have trouble breathing. You have chest pain. These symptoms may be an emergency. Get help right away. Call 911. Do not wait to see if the symptoms will go away. Do not drive yourself to the hospital. This information is not intended to replace advice given to you by your health care provider. Make sure you discuss any questions you have with your health care provider. Document Revised: 12/26/2022 Document Reviewed: 12/26/2022 [employer] ([place]) Patient Education 2023 [employer] Follow Up Care 12/01/2023 11:43:39 With:Cheyanne Rosas Address: [facility] [place], [facility] A [address] [address] [facility] (1) When:12/04/2023 14:17:39 [facility] 12-01-2023 Note ED Patient Education Note Gastroenterology Hypokalemia Hypokalemia means that the amount of potassium in the blood is lower than normal. Potassium is a mineral (electrolyte) that helps regulate the amount of fluid in the body. It also stimulates muscle tightening (contraction) and helps nerves work properly. Normally, most of the body's potassium is inside cells, and only a very small amount is in the blood. Because the amount in the blood is so small, minor changes to potassium levels in the blood can be life-threatening. What are the causes? This condition may be caused by: ? Antibiotic medicine. ? Diarrhea or vomiting. Taking too much of a medicine that helps you have a bowel movement (laxative) can cause diarrhea and lead to hypokalemia. ? Chronic kidney disease (CKD). ? Medicines that help the body get rid of excess fluid (diuretics). ? Eating disorders, such as anorexia or bulimia. ? Low magnesium levels in the body. ? Sweating a lot. What are the signs or symptoms? Symptoms of this condition include: ? Weakness. ? Constipation. ? Fatigue. ? Muscle cramps. ? Mental confusion. ? Skipped heartbeats or irregular heartbeat (palpitations). ? Tingling or numbness. How is this diagnosed? This condition is diagnosed with a blood test. How is this treated? This condition may be treated by: ? Taking potassium supplements. ? Adjusting the medicines that you take. ? Eating more foods that contain a lot of potassium. If your potassium level is very low, you may need to get potassium through an IV and be monitored in the hospital. Follow these instructions at home: Eating and drinking ? Eat a healthy diet. A healthy diet includes fresh fruits and vegetables, whole grains, healthy fats, and lean proteins. ? If told, eat more foods that contain a lot of potassium. These include: ? Nuts, such as peanuts and pistachios. ? Seeds, such as sunflower seeds and pumpkin seeds. ? Peas, lentils, and gomez beans. ? Whole grain and bran cereals and breads. ? Fresh fruits and vegetables, such as apricots, avocado, bananas, cantaloupe, kiwi, oranges, tomatoes, asparagus, and potatoes. ? Juices, such as orange, tomato, and prune. ? Lean meats, including fish. ? Milk and milk products, such as yogurt. General instructions ? Take fygp-yuq-ewfdysy and prescription medicines only as told by your health care provider. This includes vitamins, natural food products, and supplements. ? Keep all follow-up visits. This is important. Contact a health care provider if: ? You have weakness that gets worse. ? You feel your heart pounding or racing. ? You vomit. ? You have diarrhea. ? You have diabetes and you have trouble keeping your blood sugar in your target range. Get help right away if: ? You have chest pain. ? You have shortness of breath. ? You have vomiting or diarrhea that lasts for more than 2 days. ? You faint. These symptoms may be an emergency. Get help right away. Call 911. ? Do not wait to see if the symptoms will go away. ? Do not drive yourself to the hospital. Summary ? Hypokalemia means that the amount of potassium in the blood is lower than normal. ? This condition is diagnosed with a blood test. ? Hypokalemia may be treated by taking potassium supplements, adjusting the medicines that you take, or eating more foods that are high in potassium. ? If your potassium level is very low, you may need to get potassium through an IV and be monitored in the hospital. This information is not intended to replace advice given to you by your health care provider. Make sure you discuss any questions you have with your health care provider. Document Revised: 11/23/2021 Document Reviewed: 11/23/2021 [employer] Patient Education ? 2023 [employer]. Abdominal Pain, Adult Many things can cause belly (abdominal) pain. In most cases, belly pain is not a serious problem and can be watched and treated at home. But in some cases, it can be serious. Your doctor will try to find the cause of your belly pain. Follow these instructions at home: Medicines ? Take mmfn-wsj-znfthma and prescription medicines only as told by your doctor. ? Do not take medicines that help you poop (laxatives) unless told by your doctor. General instructions ? Watch your belly pain for any changes. Tell your doctor if the pain gets worse. ? Drink enough fluid to keep your pee (urine) pale yellow. Contact a doctor if: ? Your belly pain changes or gets worse. ? You have very bad cramping or bloating in your belly. ? You vomit. ? Your pain gets worse with meals, after eating, or with certain foods. ? You have trouble pooping or have watery poop for more than 2?3 days. ? You are not hungry, or you lose weight without trying. ? You have signs of not getting enough fluid or water (dehydration). These may include: ? Dark pee, very little pee, o (more content not included)... [facility] 12-01-2023 Evaluation + Plan note Extrac lisa from: Title:ED Note Author:Kristie Boss PA-C . Date:12/01/23 1. Hypokalemia (E87.6: Hypok alemia) 2. Flank pain (R10.9: Unspecified abdominal pain) Orders: potassium chloride, 40 mEq = 2 tab(s), Tab-ER, Oral, Once, Stop date 12/01/23 14:16:00 EDT, STAT, Start date 12/01/23 14:16:00 EDT, 12/01/23 14:16:00 EDT Basic Metabolic Panel CT Abdomen/Pelvis w/o Contrast ECG 12 Lead Adult eGFR Hepatic Function Panel Lactic Acid Lipase Level NPO Diet Troponin 0 Hr. UA with Cult Rflx Future Scheduled Tests Laboratory* TSH With T4fr Reflex 07/17/23 * Urinalysis with Micro 07/17/23 * Lipid Panel 07/17/23 * Drug Screen Urine 07/17/23 Radiology* MA Mamm Screen w/CAD if perf and 3D Kenan 07/17/23 [facility] 09-04-2024 Hospital Discharge instructions Patient Education 11/27/2023 19:48:28 Knee Sprain, Adult Knee Sprain, Adult A knee sprain is a stretch or tear in a knee ligament. Knee ligaments are tissues that connect the bones of the knee joint to each other. What are the causes? This condition often results from: A fall. An injury to the knee. What are the signs or symptoms? Symptoms of this condition include: Trouble straightening or bending the leg. Swelling in the knee. Bruising around the knee. Tenderness or pain in the knee. Sudden muscle tightening (spasm) around the knee. How is this diagnosed? This condition may be diagnosed based on: A physical exam. A history of what happened just before you started to have symptoms. Tests. These may include: ?An X-ray. This may be done to make sure no bones are broken or moved out of position (dislocated). ?An MRI. This may be done to check if any of the ligaments are torn and to check for other damage. ?A physical exam that includes stress testing of the knee. This may be done to check for damage to ligaments. How is this treated? Treatment for this condition may involve: Keeping the knee in a straightened position (immobilized) with a cast, brace, or splint. Applying ice to the knee. This helps with pain and swelling. Raising (elevating) the knee above the level of your heart when you are resting. This helps with pain and swelling. Taking medicine for pain. Doing exercises to prevent or limit long-term weakness or stiffness in your knee. Having surgery to reconnect ligaments to the bone or to reconstruct ligaments. This may be needed if one or more ligaments are fully torn. Follow these instructions at home: If you have a removable splint or brace: Wear the splint or brace as told by your health care provider. Remove it only as told by your health care provider. Check the skin around the splint or brace every day. Tell your health care provider about any concerns. Loosen the splint or brace if your toes tingle, become numb, or turn cold and blue. Keep the splint or brace clean and dry. If you have a nonremovable cast: Do not put pressure on any [...] Keep the cast clean and dry. Bathing If the splint, brace, or cast is not waterproof: Do not let it get wet. Cover it with a watertight covering when you take a bath or a shower. Managing pain, stiffness, and swelling If directed, put ice on the injured area. To do this: ?If you have a removable splint or brace, remove it as told by your health care provider. ?Put ice in a plastic bag. ?Place a towel between your skin and the bag or between your cast and the bag. ?Leave the ice on for 20 minutes, 2 3 times a day. ?If your skin turns bright red, remove the ice right away to prevent skin damage. The risk of skin damage is higher if you cannot feel pain, heat, or cold. Move your toes often to reduce stiffness and swelling. Elevate the injured area above the level of your heart while you are sitting or lying down. General instructions Take nijl-ikt-shmjlqu and prescription medicines only as told by your health care provider. Do not use any products that contain nicotine or tobacco. These products include cigarettes, chewing tobacco, and vaping devices, such as e-cigarettes. These can delay healing. If you need help quitting, ask your health care provider. Do exercises as told by your health care provider. Contact a health care provider if: You have pain that gets worse. The cast, brace, or splint does not fit right or gets damaged. Get help right away if: You cannot use your injured knee to support any of your body weight (cannot bear weight). You cannot move the injured joint. You cannot walk more than a few steps without pain or without your knee buckling. You have a lot of pain, swelling, or numbness in the leg below the cast, brace, or splint. Your foot or toes are numb, cold, or blue after you loosen your splint or brace. This information is not intended to replace advice given to you by your health care provider. Make sure you discuss any questions you have with your health care provider. Document Revised: 09/03/2022 Document Reviewed: 09/03/2022 [employer] ([place]) Patient Education 2023 [employer] Follow Up Care 11/27/2023 17:44:18 With:Peter Forrest Address: [address] [place] [id number] [facility] (1) When:11/30/2023 19:33:03 With:Cheyanne Rosas Address: [address] [place], [place] [address], [address] [facility] [address] [place] [address]- Business (1) When:11/30/2023 19:32:55 [facility] [id number] [facility] [address] [place] [address] Emergency Department Note Signed Patient Name: Jerad Tracy Record #: [id number] Date of : 1975 Age/Sex: 48 / F Location: ED Attending physician: HPI - General Adult General Date of Visit: 11/26/23 Chief complaint: Back Pain/Injury Time Seen by Provider: 11/26/23 21:47 History of Present Illness HPI narrative: The patient is a 48 year old who presented to the Emergency Department with the complaint of back pain. Patient states that she has a history of herniated lumbar disks and that back in September she had anerve stimulator placed for pain inher lower back which helped tremendously. However, she states that she developed a blood clot and infection around the area and that it needed to be removed. She states that she is due to have another one placed at the [facility] where she had her previous surgery. However, she states that she is having severe back pain over the incision currently as well as some pain shooting into the left leg which is not new. She notes that she has chronic numbness to bilateral thighs which has not changed. Denies any new numbness, saddle paresthesias, urinary retention, urine or bowel incontinence, trauma, fevers, chills, sweats, rash, or drainage from the incision. Home Meds and Allergies Home Medications ?Medication ?Instructions ?Recorded ?Confirmed ?Type acetaminophen 500 mg tablet 1,000 mg (2 x 500 mg) PO Q8H PRN 11/27/23 Rx (Tylenol Extra Strength) pain #30 tabs doxycycline hyclate 100 mg capsule 100 mg PO BID 10 days #20 caps 11/27/23 Rx ibuprofen 800 mg tablet 800 mg PO Q8H PRN pain #30 tabs 11/27/23 Rx Allergies Allergy/AdvReac Type Severity Reaction Status Date / Time hydrocodone Allergy Unknown Verified 09/04/24 00:26 Penicillins Allergy Unknown Verified 11/27/23 00:26 Review of Systems Narrative: Constitutional: Denies fevers or chills Eyes: Denies any blurred vision or change in vision HEENT: Denies any neck pain or stiffness Cardiovascular: Denies any chest pain, palpitations, shortness of breath, edema Respiratory: Denies any dyspnea, cough, wheezing GI: Denies abdominal pain, nausea, vomiting : MSK: Positive for low back pain Skin: Positive for opening of previous midline back incision with surrounding redness Neurological: Denies any weakness or abnormal gait Psych: Heme: Denies any anticoagulant use or easy bruising Allergic/immunologic: History PFSH Medical History (Updated 11/27/23 @ 01:17 by Flex Veliz MD) Bulging discs Surgical History (Updated 11/27/23 @ 00:31 by Raquel Jennings) H/O: hysterectomy Social History History Provided by: Patient Preferred Language: Serbian Usual Living Arrangement: With Spouse/Significant Other Smoking Status: Current Every Day Smoker Years Smoked: 30 Packs Per Day: 0.5 Other Form of Tobacco Used: Never Used Second Hand Tobacco Smoke Exposure: No How Often do you Have a Drink Containing Alcohol: Never How Many Standard Drinks Containing Alcohol do you Have on a Typical Day: None How Often do you Have Six or More Drinks on One Occasion: Never AUDIT-C Alcohol Total Score: 0 Non-Prescribed Substance Use: Denies Use Suspect/Identified Abuse: No Provider Notified of Abuse or Suspected Abuse: No Physical Exam Narrative: Vital signs, click to edit/add: Vital Signs - 24 hr 11/26/23 21:50 11/26/23 23:19 11/26/23 23:48 Temperature 97.7 F Pulse Rate [Left A pical] 67 Respiratory Rate 16 18 18 Blood Pressure [Le ft Arm] 150/91 H Pulse Oximetry 98 Oxygen Delivery Me thod Room Air Constitutional: No acute distress, patient awake and alert and oriented x3 Eyes: PERRL, EOMI HEENT: Normocephalic, atraumatic Neck: Normal range of motion, supple, no tenderness Cardiovascular: Normal rate and rhythm. No murmurs rubs or gallops. 2+ pulses throughout. No extremity edema. Respiratory: Clear to auscultation bilaterally without any rales, rhonchi, wheezes. Normal respiratory effort without accessory muscle use. GI: Abdomen soft and nontender : MSK: Skin: Mild dehiscence of previous midline spinal incision with scant surroundingerythema and mild warmth, no purulent discharge or drainage. No fluctuance Neurological: Awake and alert. No focal neurological deficits. Strength and sensation to lower extremities appear to be intact. Psych: Medical Decision Making MDM Narrative Medical decision making narrative: Patient is a 48-year-old female presenting with low back pain. Patient does have a history of previous nerve stimulator placement to the low back which was removed due to infection. No neurological deficits on exam. Examination of theback does reveal dehiscence of previous incision with scant erythema but no purulent drainage, fluctuance. Patient provided with pain medication as well aslab work and CT scan of the lumbar spine with contrast. There is evidence of superficial cellulitis but no evidence of deeper infection or abscess. Lab worknormal. Incision was dressed with a bacitracin dressing and bandage and patientwas started on antibiotics and discharged home to follow-up with PCP. Lab Data Abnormal Labs: Abnormal Labs 11/26/23 22:27 WBC 11.9 H Plt Count 400 H Eos % (Auto) 1 L Baso # (Auto) 0.0 L Absolute Neutrophils 8.5 H Chloride 108 H Carbon Dioxide 20 L Anion Gap 14 H Random Glucose 105 H C-Reactive Protein 1.0 H Labs: Lab Results 11/26/23 11/26/23 Range/Units 22:12 22:27 WBC 11.9 H (3.2-9.3) 10'3/uL RBC 4.44 (3.85-4.88) 10'6/uL Hgb 13.8 (11.7-14.9) g/dL Hct 41.1 (34.6-44.1) % MCV 92.6 (83.0-97.4) fL MCH 31.1 (27.8-33.2) pg MCHC 33.6 (32.7-34.8) g/dL RDW 13.2 (12.2-15.8) % Plt Count 400 H (122-359) 10'3/uL MPV 9.7 (7.6-10.6) fL Neut % (Auto) 71 (41-72) % Lymph % (Auto) 22 (20-35) % [place] % (Auto) 6 (4-12) % Eos % (Auto) 1 L (2-5) % Baso % (Auto) 0 (0-1) % Lymph # (Auto) 2.6 (0.5-3.5) 10'3/uL [place] # (Auto) 0.7 (0.2-0.8) 10'3/uL Eos # (Auto) 0.1 (0.0-0.4) 10'3/uL Baso # (Auto) 0.0 L (0.1-0.2) 10'3/uL Absolute Neutrophils 8.5 H (1.5-5.6) 10'3/uL Sodium 142 (136-145) mmol/L Potassium 3.5 (3.5-5.1) mmol/L Chloride 108 H (98-107) mmol/L Carbon Dioxide 20 L (22-29) mmol/L Anion Gap 14 H (5-13) mEq/L BUN 10 (7-18) mg/dL Creatinine 0.77 (0.57-1.11) mg/dL eGFR >60 (mL/min/1.73m2) Random Glucose 105 H (70-100) mg/dL Calcium 9.1 (8.4-10.2) mg/dL C-Reactive Protein 1.0 H (<0.6) mg/dL Urine Color Yellow (YELLOW) Urine Appearance Clear (CLEAR) Urine pH 7.0 (5.5-8.0) Ur Specific [place] 1.015 (1.005-1.030) Urine Protein Negative (Negative) mg/dL Urine Glucose (UA) Negative (Negative) mg/dL Urine Ketones Negative (Negative) mg/dL Urine Occult Blood Negative (Negative) Urine Nitrite Negative (NEGATIVE) Urine Bilirubin Negative (Negative) Urine Urobilinogen 0.2 (0.2-1.0) EU/dL Leukocyte Esterase (Auto) Trace (Negative) Ur Microscopic Not Reportable Urine Microscopic WBC 0-2 (0) /hpf Ur Squamous Epith Cells 6-10 (0) Urine Bacteria Trace (0) /hpf Urine Mucus 1+ /hpf Procedures Procedural Sedation Performed Procedural Sedation Performed: No Course Course Medication Administered: Active Medications Generic Name Dose Route Start Last Admin Trade Name Freq PRN Reason Stop Dose Admin Sodium Chloride 9 ml 11/26/23 22:13 Sodium Chloride 0.9% Flush 3 Ml Syringe IVPUSH 12/26/23 22:12 PRN PRN FLUSH Sodium Chloride 250 ml 11/26/23 22:13 0.9 % Sodium Chloride - 250 Ml Flush Bag IV 12/26/23 22:12 ONCE PRN FLUSH Sodium Chloride 20 ml 11/26/23 22:27 11/26/23 23:13 Sodium Chloride 0.9% Flush 5 Ml Syringe IVPUSH 11/27/23 22:26 10 ml PRN PRN Administration FLUSH Discontinued Medications Generic Name Dose Route Start Last Admin Trade Name Donita PRN Reason Stop Dose Admin Bacitracin 1 [email or web address] 11/27/23 01:06 11/27/23 01:37 Bacitracin Oint 15 Gm Tube TOP 11/27/23 01:07 1 [email or web address] ONCE ONE Administration Doxycycline Hyclate 100 mg 11/27/23 01:06 11/27/23 01:37 Doxycycline 100 Mg Capsule PO 11/27/23 01:07 100 mg ONCE ONE Administration Sodium Chloride 1,000 mls @ 999 mls/hr 11/26/23 22:13 11/27/23 00:18 Sodium Chloride 0.9% 1l Bag IV 11/26/23 23:13 Infused BOLUS ONE Infusion Iodixanol 100 ml 11/26/23 22:27 11/26/23 23:12 Visipaque 320 Mg/Ml 100 Ml Bottle IVPUSH 11/26/23 22:28 100 ml ONCE ONE Administration Ketorolac Tromethamine 15 mg 11/26/23 22:13 11/26/23 23:18 Ketorolac 30 Mg/Ml Vial IVPUSH 11/26/23 22:14 15 mg ONCE ONE Administration Morphine Sulfate 4 mg 11/26/23 22:13 11/26/23 23:19 Morphine 4 Mg/Ml Vial IVPUSH 11/26/23 22:14 4 mg ONCE ONE Administration Oxycodone/Acetaminophen 1 pkg 11/27/23 01:18 11/27/23 01:38 Oxycodone/Aceta 5-325 - Home Pkg (2 Tabs) PO 11/27/23 01:19 1 pkg SEND HOME ONE Administration Sodium Chloride 50 ml 11/26/23 22:27 11/26/23 23:13 0.9% Sod Chloride-Flush 50 Ml Bag IV 11/26/23 22:28 50 ml ONCE ONE Administration Vital Signs Vital signs: Vital Signs 11/26/23 21:50 11/26/23 23:19 11/26/23 23:48 Temperature 97.7 F Pulse Rate [Left Apical] 67 Respiratory Rate 16 18 18 Blood Pressure [Left Arm] 150/91 H Pulse Oximetry 98 Oxygen Delivery Method Room Air Discharge Plan Discharge (Provider) Patient Disposition: Home, Self-Care Clinical Impression: Cellulitis Qualifiers: Site of cellulitis: trunk Site of cellulitis of trunk: back Qualified Code(s): L03.312 - Cellulitisof back [any part except buttock] Condition: Good Additional Instructions: Please take antibiotics as prescribed and follow-up with your primary care provider. Please keep the area on the back covered with Neosporin or bacitracinand a bandage. Please change this dressing twice a day. Referrals: PCP,No [Primary Care Provider] - Home Meds & Prescriptions: New doxycycline hyclate 100 mg capsule 100 mg PO BID 10 Days Qty: 20 0RF ibuprofen 800 mg tablet 800 mg PO Q8H PRN (Reason: pain) Qty: 30 0RF acetaminophen [Tylenol Extra Strength] 500 mg tablet 1,000 mg PO Q8H PRN (Reason: pain) Qty: 30 0RF ` Dictated By: Flex Veliz MD 11/26/232214 Signed By: 11/27/23 0236 Cosigned By (if applicable): [id number] cc: [facility]09-04-2024 [place] [address] CT Scan Report Signed with Addenda Patient Name: Jerad Tracy [facility] Record #: [id number] Date of : 1975 [place] t #:[id number] Age/Sex: 48 / F Location: ED Attending physician: Ordering Provider: Flex Veliz MD Date of Service: 11/26/23 Procedure(s): CT lumbar spine w con ADDENDUM: 100 ml Visipaque 320 IV contrast was administered. Addendum Dictated By: Sean Simmons MD Addendum Signed By: 11/27/23 1623 DD/ /16/999 TD/TT: 11/27/2307/17/1507 HISTORY: A spine stimulator place 09/23/2023 but removed 10/14/2023 secondary to infection. Incision has open backup. Concern for infection Time: 23:03 on 11/26/2023. TECHNIQUE: Axial images were obtained through the lumbar spine. Coronal and sagittal reconstruction imaging was performed. Individualized dose optimization techniques were used for the CT scan. Comparison: None. Findings: In the superficial subcutaneous tissues at the L2-3 level there is localized soft tissue density and overlying skin thickening consistent with a combination of postoperative changes and cellulitis. A distinct drainable abscess is not evident. The underlying bony structures appear intact. Vertebral body heights are maintained and the alignment appears within normal limits. No bony destruction Degenerative changes are seen in the lower lumbar spine predominately with disc space narrowing and a vacuum disc at L4-5 L5-S1 along with some reactive endplate changes. Impression: Soft tissue density extending from the scan into the subcutaneous tissues with overlying skin thickening extending from the L2 to the L3 level posteriorly most consistent with combination of recent post procedural changes and localized infection including changes of cellulitis. I do not identify a drainable abscess at this time and no subcutaneous gas is evident. Degenerative changes lower lumbar spine as discussed above Written provisional report of the study provided by outside reading service at 12:51 a.m. on 11/27/2023. Dictated By: Sean Simmons MD Signed By: 11/27/2353 DD/ TD/TT: 11/27/23949 [employer] Orientator: [facility] Exam/Order Verified? Y Exam Explained to Patient/Family? Y Was Patient Shielded?N Is Patient ? N Consent Form Completed? Hx Last Menstrual Period: NO CHANCE Does Patient have a Diabetic Device? No Diabetic Device Type: Was the Diabetic Device Removed? If NO: was Removal Consent form completed? Patient was informed of radiation exposure prior to scan? Verified by Technologist:[id number] Comment: [phone] cc: Flex Veliz MD PCP,[facility]09-01-2024 Hospital Discharge instructions Patient Education 11/24/2023 15:09:05 Knee Sprain, Adult, Raen-zc-Ojie Knee Sprain, Adult A knee sprain is a stretch or tear in a knee ligament. Knee ligaments are tissues that connect the bones of the knee to each other. What are the causes? This condition is often caused by: A fall. An injury to the knee. What are the signs or symptoms? Trouble straightening or bending the leg. Problems with your knee, like: ?Swelling. ?Bruising. ?Tenderness or pain. ?Sudden muscle tightening (spasm). How is this treated? You may need to: Keep your knee still with a cast, brace, or splint. Put ice on the knee. This helps with pain and swelling. Raise your knee above the level of your heart when you are resting. This helps with pain and swelling. Take medicine for pain. Do exercises to keep your knee from being weak or stiff. Have surgery. This may be needed if the ligament is fully torn. Follow these instructions at home: If you have a splint or brace that can be taken off: Wear the splint or brace as told by your doctor. Take it off only as told by your doctor. Check the skin around the splint or brace every day. Tell your doctor if you see problems. Loosen the splint or brace if your toes: ?Tingle. ?Become numb. ?Turn cold and blue. Keep the splint or brace clean and dry. If you have a cast that cannot be taken off: Do not put pressure on any part of the cast until it is fully hardened. Do not stick anything inside the cast to scratch your skin. Check the skin around the cast every day. Tell your doctor if you see problems. You may put lotion on dry skin around the edges of the cast. Do not put lotion on the skin under the cast. Keep the cast clean and dry. Bathing If you have a splint, brace, or cast that is not waterproof: Do not let it get wet. Cover it with a watertight covering when you take a bath or a shower. Managing pain, stiffness, and swelling If told, put ice on the injured area. To do this: ?If you have a removable splint or brace, take it off as told by your doctor. ?Put ice in a plastic bag. ?Place a towel between your skin and the bag or between your cast and the bag. ?Leave the ice on for 20 minutes, 2 3 times a day. ?If your skin turns bright red, take off the ice right away to prevent skin damage. The risk of skin damage is higher if you cannot feel pain, heat, or cold. Move your toes often. Raise the injured area above the level of your heart while you are sitting or lying down. General instructions Take nfyd-qso-zrmtoof and prescription medicines only as told by your doctor. Do not smoke or use any products that contain nicotine or tobacco. These can make it take longer for your knee to heal. If you need help quitting, ask your doctor. Do exercises as told by your doctor. Contact a doctor if: Your pain gets worse. The cast, brace, or splint does not fit right or gets damaged. Get help right away if: You can't use your knee to support your body weight for standing or walking. You can't move the injured area. Your knee billy, or you have pain after you walk only a few steps. You have very bad pain or swelling, or you lose feeling in your leg below the cast, brace, or splint. Your foot or toes are numb, cold, or blue after you loosen your splint or brace. This information is not intended to replace advice given to you by your health care provider. Make sure you discuss any questions you have with your health care provider. Document Revised: 09/03/2022 Document Reviewed: 09/03/2022 [employer] Patient Education 2023 [employer]. Follow Up Care 11/24/2023 13:15:53 With:Peter Forrest Address: [address] [place] [phone] Business (1) When:11/27/2023 15:01:53 Comments:Call Dr for diagnosis based follow up With:Cheyanne Rosas Address: [address] [place], [place] [phone] Business (1) When:Within 3 Day(s) [facility] 09-01-2024 Evaluation + Plan noteExtracted from: Title:ED Note Author:Yaw MILES, Landon Celis te:11/24/23 Left knee sprain (S83.92XA: Sprain of unspecified site of left knee, initial encounter) Orders: acetaminophen-oxycodone, 1 tab(s), Oral, q6hr for pain for 2 day(s), 8 tab(s), Refill(s) 0, [id number], 160, cm, 11/24/23 13:46:00 EDT, Height/Length Dosing, 115, kg, 11/24/23 13:46:00 EDT, Weight Dosing acetaminophen-oxycodone, 1 tab(s), Tab, Oral, Once, Stop date 11/24/23 14:24:00 EDT, STAT, Start date 11/24/23 14:24:00 EDT diclofenac topical, 1 kennedi, Topical, QID for pain, 100 gram, Refill(s) 0, [id number], 160, cm, 11/24/23 13:46:00 EDT, Height/Length Dosing, 115, kg, 11/24/23 13:46:00 EDT, Weight Dosing XR Knee Complete 4+ Views Left Future Scheduled Tests Laboratory* TSH With T4fr Reflex 07/17/23 * Urinalysis with Micro 07/17/23 * Lipid Panel 07/17/23 * Drug Screen Urine 07/17/23 Radiology* MA Mamm Screen w/CAD if perf and 3D Kenan 07/17/23 [facility] 08-13-2024 Hospital Discharge instructions Patient Education 11/05/2023 21:14:25 Managing Chronic Back Pain Managing Chronic Back [...] 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 Another treatment may include muscle relaxants. Take rquz-dzl-kqjfkwn and prescription medicines only as told by your health care provider. Ask your health care provider if the medicine prescribed to you: ?Requires you to avoid driving or using machinery. ?Can cause constipation. You may need to take these actions to prevent or treat constipation: ?Drink enough fluid to keep your urine pale yellow. ?Take akad-jpn-gbiylvt or prescription medicines. ?Eat foods that are [...] online and in-person support groups through: [employer] [place] [employer]: theacpa.org Pain Connection Program: [...] provider. Document Revised: 04/21/2020 Document Reviewed: 12/29/2019 [employer] Patient Education 2022 [employer]. Follow Up Care 11/05/2023 19:45:47 With:Cheyanne Rosas Address: [address] [place] [address] [place] [phone] Business (1) When:11/08/2023 21:14:06 Comments:Call to schedule a follow-up appointment with your family physician and/or the back surgeon for further management of care. Return to the ED with any worsening symptoms. [facility] 08-13-2024 Evaluation + Plan noteExtracted from: Title:ED Note Author:Zhane Castro PA-C te:11/05/23 Chronic lower back pain (M54 .50: Low back pain, unspecified) Encounter for post surgical wound check (Z48.89: Encounter for other specified surgical aftercare) Other chronic pain (G89.29: Other chronic pain) Orders: acetaminophen-oxycodone, 1 EA, Oral, Once, Stop date 11/05/23 21:04:00 EDT, STAT, Start date 11/05/23 21:04:00 EDT ketorolac, 30 mg = 1 mL, Injection, IntraMuscular, Once, Stop date 11/05/23 21:03:00 EDT, STAT, Start date 11/05/23 21:03:00 EDT, 11/05/23 21:03:00 EDT Future Appointments Appointment Date:11/13/2023 08:00:00 AM Scheduled Provider:Domenic Sher DO Location:.[facility] Appointment Type:Pain Management - Follow Up (FT) Future Scheduled Tests Laboratory* TSH With T4fr Reflex 07/17/23 * Urinalysis with Micro 07/17/23 * Lipid Panel 07/17/23 * Drug Screen Urine 07/17/23 Radiology* MA Mamm Screen w/CAD if perf and 3D Kenan 07/17/23 [facility] [id number] History of Present illness Narrative* Joan Dumont - 10/30/2023 7:19 PM EDT Need lumbar spine x-ray to clear pt for MRI to make sure all stimulator and internal wires are completely removed [facility] Discharge instructions Patient Education 10/30/2023 12:55:31 Incision Care, [...] and water are not available, use hand compounding and finishing supervisor. Do not use disinfectants or antiseptics, such [...] completely unless your health care provider tells youto do that. Apply cream or ointment. Do this only as told by your health care provider. Cover the incision with a clean dressing. Ask your health care provider when you can start to leavethe incision uncovered. Checking for infection Check your incision area every day for signs of infection. Check for: More redness, swelling, or pain. More fluid or blood. New warmth, hardness, or a rash that develops along the incision. Pus or a bad smell. Follow these instructions at home Medicines Take ptry-sta-jahmpfu and prescription medicines only as told by your health care provider. If you were prescribed an antibiotic medicine, cream, or ointment, take or apply it as told by yourhealth care provider. Do not stop using the [...] anything that would put the incision underwater untilyour health care provider approves. Ask your health care provider if you may take showers. You may only be allowed to take sponge baths. Limit movement around your incision to promote healing. ?Avoid straining, lifting, or exercising for the first 2 weeks after your procedure, or for as longas told by your health care provider. ?Return [...] cigarettes, and chewing tobacco. These can delay incision [...] and water are not available, use hand compounding and finishing supervisor. Check your incision area every day for signs of infection. Keep all follow-up visits. This is important. This information is not intended to replace advice given to you by your health care provider. Make sure you discuss any questions you have with your health care provider. Document Revised: 06/12/2021 Document Reviewed: 06/12/2021 [employer] Patient Education 2022 [employer]. 10/30/2023 12:55:31 Chronic Back Pain Chronic Back [...] pull them backward. Do not sit or paper machine backtender one place for long periods of time. [...] prescription pain medicine, or muscle relaxants. Take brkp-uqi-vtutdrv and prescription medicines onlyas told by your health care provider. Ask your health care provider if the medicine prescribed to you: ?Requires you to avoid driving or using machinery. ?Can cause constipation. You may need to take these actions to prevent or treat constipation: ?Drink enough fluid to keep your urine pale yellow. ?Take wknx-vcf-voymjke or prescription medicines. ?Eat foods that are [...] provider. Document Revised: 04/20/2020 Document Reviewed: 04/20/2020 [employer] Patient Education 2022 [employer]. Follow Up Care 10/30/2023 12:12:04 With:Cheyanne Rosas Address: [address] [place], [facility] [place] [phone]- Business (1) When:11/02/2023 12:41:56 Comments:Return to the emergency room if your pain gets worse, fever or any new symptoms [facility] 08-07-2024 Evaluation + Plan noteExtracted from: Title:ED Note [...] Date:11/13/2023 08:00:00 AM Scheduled Provider:Domenic Sher DO Location:.[facility] Appointment Type:Pain Management - Follow Up (FT) Future Scheduled Tests Laboratory* TSH With T4fr Reflex 07/17/23 * Urinalysis with Micro 07/17/23 * Lipid Panel 07/17/23 * Drug Screen Urine 07/17/23 Radiology* MA Mamm Screen w/CAD if perf and 3D Kenan 07/17/23 [facility] 08-03-2024 Evaluation + Plan noteExtracted from: Title:ED Note Author:Pedro Pablo Fletcher DO Date :10/26/23 Candidal intertrigo (B37.2: Candidiasis of skin and nail) Orders: ketoconazole topical, 1 kennedi, Topical, BID for 28 day(s), 60 gm, Refill(s) 0, [facility] #[id number], 160, cm, 10/26/23 2:47:00 EDT, Height/Length Dosing, 116.7, kg, 10/26/23 2:47:00 EDT, Weight Dosing Future Appointments Appointment Date:11/13/2023 08:00:00 AM Scheduled Provider:Domenic Sher DO Location:.[facility] Appointment Type:Pain Management - Follow Up (FT) Future Scheduled Tests Laboratory* TSH With T4fr Reflex 07/17/23 * Urinalysis with Micro 07/17/23 * Lipid Panel 07/17/23 * Drug Screen Urine 07/17/23 Radiology* MA Mamm Screen w/CAD if perf and 3D Kenan 07/17/23 [facility] 08-03-2024 Hospital Discharge instructions Patient Education 10/26/2023 [...] air conditioner or fan, if available. Apply sdgb-ycz-cgujnzl and prescription medicines only as told by [...] well after activity or exercise. Use a counseling department chair on a cool setting to dry between [...] drying your skin and with medicines. Apply fjtg-xhm-nzmexcw and prescription medicines only as told by your health care provider. Keep all follow-up visits as told by your health care provider. This is important. This information is not intended to replace advice given to you by your health care provider. Make sure you discuss any questions you have with your health care provider. Document Revised: 05/23/2022 Document Reviewed: 12/25/2021 [employer] Patient Education 2022 [employer]. Follow Up Care 10/26/2023 02:36:10 With:Cheyanne Rosas Address: [address] [place] [address] Business (1) When:10/31/2023 [facility] 07-13-2024 NoteEducation Materials Dermatology Wound Dehiscence Wound [...] these instructions at home: Medicines ? Take rlio-qgz-cbyefmi and prescription medicines only as told by [...] youcannot use soap and water, use hand compounding and finishing supervisor. ? Wash your wound with mild soap [...] provider. Document Revised: 03/02/2020 Document Reviewed: 03/02/2020 [employer] Patient Education ? 2022 [employer].[id number] Note Pt ambulator back to ED RM 6 C/O insicioin pain. Pt was in the ED recently for the same complaint. Pt had a procedure done on her lower back. Wound is red, inflamed and little bit of drainage noted. Pt was prescribed antibiotics and took all of the prescribed antibiotic. Pt is A/Ox4 call light within reach [facility]07-12-2024 Hospital Discharge instructions Patient Education 10/04/2023 15:44:00 Contact Dermatitis, Fufc-cr-Xnpi Contact Dermatitis Dermatitis is redness, soreness, and [...] perfumes, and dyes. Medicines Take or apply fizq-yxm-fvynbsx and prescription medicines only as told by [...] soap and water arenot available, use hand compounding and finishing supervisor. General instructions Avoid the things that caused [...] provider. Document Revised: 12/25/2021 Document Reviewed: 12/25/2021 [employer] Patient Education 2022 [employer]. 10/04/2023 15:44:00 Acute Back Pain, Adult Acute [...] home: Managing pain, stiffness, and swelling Take wvsi-dmg-mqcenyd and prescription medicines only as told by [...] each day. Do not sit, drive, or paper machine backtender one place for more than 30 minutes [...] put less stress on your back. Take bttf-dcl-yqjtjhn and prescription medicines only as told by your health care provider, and apply heat or ice as told. This information is not intended to replace advice given to you by your health care provider. Make sure you discuss any questions you have with your health care provider. Document Revised: 06/02/2021 Document Reviewed: 06/02/2021 [employer] Patient Education 2022 [employer]. 10/04/2023 15:44:00 Wound Dehiscence, Udfd-xr-Aova Wound Dehiscence Wound dehiscence is when a [...] Follow these instructions at home: Medicines Take uqad-csy-fratfgh and prescription medicines only as told by [...] cannot use soap and water, use hand compounding and finishing supervisor. ?Wash your wound with mild soap and [...] provider. Document Revised: 03/02/2020 Document Reviewed: 03/02/2020 [employer] Patient Education 2022 [employer]. Follow Up Care 10/04/2023 14:32:53 With:Cheyanne Rosas Address: [address] [address]- [facility] (1) When:10/07/2023 15:32:21 Comments:Call Dr for diagnosis based follow up [facility]07-04-2024 NoteEducation Materials Caregiving Pain Medicine Instructions You [...] take your next dose. ? Take other hzne-mgk-zfkhtgr or prescription medicines only as told by [...] your pee (urine) pale yellow. ? Take mllv-jwq-tlgrhwu or prescription medicines. ? Eat foods that [...] awake. ? Your skin (more content not included)...[id number] NotePt ambulatory back to ED RM 10, C/O lower back pain. Pt had a procedure down on the lower back at the [facility]. by Dr. Adams. 12/02 pain, the inscions is red, warm to touch. no fever. Pt stated she was not sent home on any antibiotics. Pt tried to call the hospital and was told to come to the ER. Pt is A/ox4 call light within reach. the incision is locate on her lower back to her butt crack. [facility]07-03-2024 Hospital Discharge instructions Patient Education 09/25/2023 [...] Follow these instructions at home: Medicines Take ibzb-cmf-ppumijo and prescription medicines only as told by [...] such as antibiotic medicines or antihistamines. Take ylsp-qyx-mcshuap and prescription medicines only as told by [...] provider. Document Revised: 12/20/2021 Document Reviewed: 12/21/2021 [employer] Patient Education 2022 [employer]. Follow Up Care 09/25/2023 11:29:17 With:Cheyanne Rosas Address: [address] [phone] Business (1) When:09/28/2023 13:36:08 Comments:Call Dr for diagnosis based follow up [facility]07-03-2024 Evaluation + Plan noteExtracted from: Title:ED Note Author:Landon Tidwell PA-C te:09/25/23 Cellulitis (L03.90: Cellulit is, unspecified) Post-operative complication (T81.9XXA: Unspecified complication of procedure, initial encounter) Orders: cephalexin, 500 mg = 1 cap(s), Oral, q6hr, X 7 day(s), # 28 cap(s), Refills(s) 0, Pharmacy: [facility]/pharmacy #[id number], 160, cm, 09/25/23 11:43:00 EDT, Height/Length Dosing, 115.3, kg, 09/25/23 11:43:00 EDT, Weight Dosing morphine, 4 mg = 1 mL, Injection, IntraMuscular, Once, Stop date 09/25/23 12:06:00 EDT, STAT, Start date 09/25/23 12:06:00 EDT, 09/25/23 12:06:00 EDT sulfamethoxazole-trimethoprim, 1 tab(s), Oral, BID for 7 day(s), 14 tab(s), Refill(s) 0, [facility]/pharmacy #[id number], 160, cm, 09/25/23 11:43:00 EDT, Height/Length Dosing, 115.3, kg, 09/25/23 11:43:00 EDT, Weight Dosing CT Spine Lumbar w/o Contrast Future Appointments Appointment Date:11/13/2023 08:00:00 AM Scheduled Provider:Domenic Sher DO Location:.[facility] Appointment Type:Pain Management - Follow Up (FT) Future Scheduled Tests Laboratory* TSH With T4fr Reflex 07/17/23 * Urinalysis with Micro 07/17/23 * Lipid Panel 07/17/23 * Drug Screen Urine 07/17/23 Radiology* MA Mamm Screen w/CAD if perf and 3D Kenan 07/17/23 [facility]06-29-2024 Hospital Discharge instructions Patient Education 09/21/2023 12:23:40 Chronic Back Pain, Xjjy-fa-Ouoh Chronic Back Pain When back pain lasts [...] pull them backward. Do not sit or paper machine backtender one place for long periods of time. [...] prescription pain medicine, or muscle relaxants. Take jjny-jhy-fyvksjk and prescription medicines only as told by your doctor. Ask your doctor if the medicine prescribed to you: ?Requires you to avoid driving or using machinery. ?Can cause trouble pooping (constipation). You may need to take these actions to prevent or treat trouble pooping: ?Drink enough fluid to keep your pee (urine) pale yellow. ?Take wslj-pra-kynhulk or prescription medicines. ?Eat foods that are [...] provider. Document Revised: 04/20/2020 Document Reviewed: 04/20/2020 [employer] Patient Education 2022 [employer]. Follow Up Care 09/21/2023 11:14:36 With:Cheyanne Rosas Address: [address] [place] [phone] Business (1) When:09/24/2023 12:14:29 [facility]06-29-2024 Evaluation + Plan noteExtracted from: Title:ED Note Author:Gera MILES, Kristie Jurado Date:09/21/23 1. Chronic low back pain wit h left-sided sciatica (M54.42: Lumbago with sciatica, left side) Other chronic pain (G89.29: Other chronic pain) Orders: cyclobenzaprine, 10 mg = 1 tab(s), Oral, TID, PRN for spasm, # 30 tab(s), Refills(s) 0, Pharmacy: [facility]/pharmacy #[id number], 160, cm, 09/21/23 11:20:00 EDT, Height/Length [...] Date:11/13/2023 08:00:00 AM Scheduled Provider:Domenic Sher DO Location:FT.[facility] Appointment Type:Pain Management - Follow Up (FT) Future Scheduled Tests Laboratory* TSH With T4fr Reflex 07/17/23 * Urinalysis with Micro 07/17/23 * Lipid Panel 07/17/23 * Drug Screen Urine 07/17/23 Radiology* MA Mamm Screen w/CAD if perf and 3D Kenan 07/17/23 [facility]06-28-2024 Evaluation + Plan noteExtracted from: Title:ED Note Author:Robert Taylor PA-C te:09/20/23 Chronic back pain (M54.9: Do rsalgia, unspecified) Other chronic pain (G89.29: Other chronic pain) Orders: oxycodone, 10 mg = 2 tab(s), Tab, Oral, Once, Stop date 09/20/23 11:15:00 EDT, STAT, Start date 09/20/23 11:15:00 EDT, 09/20/23 11:15:00 EDT Future Appointments Appointment Date:11/13/2023 08:00:00 AM Scheduled Provider:Domenic Sher DO Location:FT.[facility] Appointment Type:Pain Management - Follow Up (FT) Future Scheduled Tests Laboratory* TSH With T4fr Reflex 07/17/23 * Urinalysis with Micro 07/17/23 * Lipid Panel 07/17/23 * Drug Screen Urine 07/17/23 Radiology* MA Mamm Screen w/CAD if perf and 3D Kenan 07/17/23 [facility]06-28-2024 Hospital Discharge instructions Patient Education 09/20/2023 11:31:16 Chronic Obstructive Pulmonary Disease, Vwuj-uj-Dggw Chronic Obstructive Pulmonary Disease Chronic obstructive pulmonary [...] Follow these instructions at home: Medicines Take yiis-enk-eektkkp and prescription medicines only as told by [...] keep yourself as healthy as possible. Take pfbg-pvf-ycnrjzw and prescription medicines only as told by your doctor. If you smoke, stop. Smoking makes the problem worse. This information is not intended to replace advice given to you by your health care provider. Make sure you discuss any questions you have with your health care provider. Document Revised: 01/17/2021 Document Reviewed: 01/17/2021 [employer] Patient Education 2022 [employer]. Follow Up Care 09/20/2023 10:52:05 With:Cheyanne Rosas Address: [address] [facility] (1) When:09/23/2023 11:16:15 [facility]06-25-2024 Hospital Discharge instructions Patient Education 09/17/2023 17:50:54 [...] numbers. This can be done either in Serbian ([place] or metric measurements. Note that charts and online BMI calculators are available to help you find your BMI quickly and easily without having to do these calculations yourself. To calculate your BMI in Serbian (U.S.) measurements: 1.Measure your weight in pounds [...] Centers for Disease Control and Prevention: www.cdc.gov Scottish Heart Association: www.heart.org National Heart, Lung, and Blood [place]: www.nhlbi.nih.gov Summary Body mass index (BMI) is a number that is calculated from a person's weight and height. BMI may help estimate how much of a person's weight is composed of fat. BMI can help identify thosewho may be at higher risk for certain medical problems. BMI can be measured using Serbian measurements or metric measurements. BMI charts are used to identify whether you are underweight, normal weight, overweight, or obese. This information is not intended to replace advice given to you by your health care provider. Make sure you discuss any questions you have with your health care provider. Document Revised: 12/02/2019 Document Reviewed: 10/09/2019 [employer] Patient Education 2022 [employer]. 09/17/2023 17:50:52 Steps to Quit Smoking Steps [...] require a prescription. You can also purchase aduj-aoo-zihulog medicines. Medicines may have nicotine in them [...] and encouragement. Call telephone quitlines, such as 9-115-VMNU-NOW, reach out to support groups, or work [...] provider. Document Revised: 03/02/2022 Document Reviewed: 03/02/2022 [employer] Patient Education 2022 [employer]. 09/17/2023 17:50:51 Health Risks of Smoking Health [...] Department of Health and Human Services: www.smokefree.gov Scottish Lung Association: www.freedomfromsmoking.org Scottish Heart Association: www.heart.org Where to find more [...] provider. Document Revised: 03/13/2022 Document Reviewed: 03/13/2022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 competition. Stress normally passes after the triggering ev ent has ended. Anxiety is caused by something [...] health careprovider. Avoid caffeine, alcohol, and certain pilj-awt-hyzgwgf cold medicines. These may make you feel worse. Ask your pharmacist which medicines to avoid. General instructions Take ovkp-gcr-mglpyrw and prescription medicines only as told by [...] Depression Association of [place] (ADAA): www.adaa.org National [place] on Mental Illness (KATI): www.kati.org Contact a [...] department or: Call your local emergency services (237 in the [place] Call a suicide crisis helpline, such as the National Suicide Prevention Lifeline at or 218 in the [place]. This is open 24 hours a day in the [place] Text the Crisis Text Line at 799100 (in the [place] Summary Taking steps to [...] provider. Document Revised: 10/04/2021 Document Reviewed: 07/02/2021 [employer] Patient Education 2022 [employer]. 07/17/2023 09:40:59 Exercising to Lose Weight Exercising [...] your health care provider or diet and research nutritionist (dietitian). This may include: ?Eating fewer [...] provider. Document Revised: 05/07/2021 Document Reviewed: 05/07/2021 [employer] Patient Education 2022 [employer] 07/17/2023 09:40:58 BMI for Adults BMI [...] numbers. This can be done either in [place] ([place] or metric measurements. Note that charts and online BMI calculators are available to help you find your BMI quickly and easily without having to do these calculations yourself. To calculate your BMI in Serbian ([place] measurements: 1.Measure your weight in pounds [...] Centers for Disease Control and Prevention: www.cdc.gov Scottish Heart Association: www.heart.org National Heart, Lung, and Blood [place]: www.nhlbi.nih.gov Summary Body mass index (BMI) is a number that is calculated from a person's weight and height. BMI may help estimate how much of a person's weight is composed of fat. BMI can help identify thosewho may be at higher risk for certain medical problems. BMI can be measured using Serbian measurements or metric measurements. BMI charts are used to identify whether you are underweight, normal weight, overweight, or obese. This information is not intended to replace advice given to you by your health care provider. Make sure you discuss any questions you have with your health care provider. Document Revised: 12/02/2019 Document Reviewed: 10/09/2019 [employer] Patient Education 2022 [employer]. 07/17/2023 09:40:55 Heart Disease Prevention Heart Disease [...] of hard liquor (44 mL). Medicines Take uapy-mhm-bbsjacq and prescription medicines only as told by [...] Centers for Disease Control and Prevention: www.cdc.gov/heartdisease Scottish Heart Association: www.heart.org Summary Heart disease is [...] provider. Document Revised: 11/08/2021 Document Reviewed: 11/08/2021 [employer] Patient Education 2022 [employer]. 07/17/2023 09:40:54 Form - Blood Pressure Record [...] provider. Document Revised: 11/23/2021 Document Reviewed: 11/23/2021 [employer] Patient Education 2022 [employer]. 07/17/2023 09:40:54 DASH Eating Plan DASH Eating [...] Dairy Whole or 2% milk, cream, and qhkl-lki-zwjo. Whole or full-fat cream cheese. Whole-fat or sweetened yogurt. Full-fat cheese. Nondairy creamers. Whipped toppings. Processed cheese and cheese spreads. Fats and oils Butter. Stick margarine. Lard. Shortening. Ghee. [place] fat. Tropical oils, such as coconut, palm kernel, or palm oil. Seasonings and condiments Onion salt, garlic salt, seasoned salt, table salt, and sea salt. [facility] Naval Hospitaltershire sauce. Tartar sauce. Barbecue sauce. Teriyaki sauce. [...] more information National Heart, Lung, and Blood [place]: www.nhlbi.nih.gov Scottish Heart Association: www.heart.org Academy of Nutrition and [...] provider. Document Revised: 02/12/2020 Document Reviewed: 02/12/2020 [employer] Patient Education 2022 [employer]. 07/17/2023 09:40:52 Health Risks of Smoking Health [...] Department of Health and Human Services: www.smokefree.gov Scottish Lung Association: www.freedomfromsmoking.org Scottish Heart Association: www.heart.org Where to find more [...] provider. Document Revised: 03/13/2022 Document Reviewed: 03/13/2022 [employer] Patient Education 2022 [employer]. 07/17/2023 09:40:49 Chronic Back Pain Chronic Back [...] pull them backward. Do not sit or paper machine backtender one place for long periods of time. [...] prescription pain medicine, or muscle relaxants. Take ctgx-ldp-qyuqdtq and prescription medicines onlyas told by your health care provider. Ask your health care provider if the medicine prescribed to you: ?Requires you to avoid driving or using machinery. ?Can cause constipation. You may need to take these actions to prevent or treat constipation: ?Drink enough fluid to keep your urine pale yellow. ?Take qweo-aet-gofnkze or prescription medicines. ?Eat foods that are [...] provider. Document Revised: 04/20/2020 Document Reviewed: 04/20/2020 [employer] Patient Education 2022 [employer]. 07/17/2023 09:40:47 Hepatitis C Hepatitis C Hepatitis [...] Follow these instructions at home: Medicines Take sqnd-vog-ejgvdav and prescription medicines only as told by your health care provider. If you were prescribed an antiviral medicine, take it as told by your health care provider. Do not stop using the antiviral even if you start to feel better. Do not take any new medicines, including vjms-skz-osdrbvh medicines or supplements, unless your health care [...] water are not available, use alcohol-based hand compounding and finishing supervisor. Cover any cuts or open sores on [...] contagious). Do not take any medicines, including auna-hbc-zqikqxn medicines or supplements, unless your health care provider approves. This information is not intended to replace advice given to you by your health care provider. Make sure you discuss any questions you have with your health care provider. Document Revised: 01/26/2021 Document Reviewed: 01/26/2021 [employer] Patient Education 2022 [employer]. 07/17/2023 09:40:45 Mixed Bipolar Disorder Mixed Bipolar [...] alcohol or use drugs. General instructions Take tesr-ugp-ewwcxlp and prescription medicines only as told by your health care provider. Think about joining a support group. Your health care provider may be able to recommend one. Talk with your family and loved ones about your treatment goals and about how they can help. Keep all follow-up visits. This is important. Where to find more information National [place] on Mental Illness: kati.org National [place] of Mental Health: nimh.nih.gov Contact a health [...] department or: Call your local emergency services (609 in the [place] Call a suicide crisis helpline, such as the National Suicide Prevention Lifeline at or 199 in the [place].S. This is open 24 hours a day. Text the Crisis Text Line at 230075 (in the [place].S.). Summary Mixed bipolar disorder [...] provider. Document Revised: 10/05/2021 Document Reviewed: 08/31/2021 [employer] Patient Education 2022 [employer] Follow Up Care 05/07/2023 10:08:54 With:Cheyanne Rincon FAM, MED Address: [facility] [address], [facility] [address] [address]- When:Within 1 Month(s) Comments:f/u labs, HTN, [facility] 04-22-2024 Evaluation + Plan noteExtracted from: Title:Pain Managment H&P new patient Author:Dory Bsiwas PA-C Date:07/15/23 Impression and Plan Patient is [...] Appointment Date:07/17/2023 07:40:00 AM Scheduled Provider:Cheyanne Rincon Location:[facility] Appointment Type:FM New Patient - Adult Appointment Date:08/14/2023 03:15:00 PM Scheduled Provider:Domenic Sher DO Location:[facility] Appointment Type:Pain Management - Follow Up (FT) [facility]04-21-2024 Hospital Discharge instructions Patient Education 07/14/2023 12:21:30 [...] pull them backward. Do not sit or paper machine backtender one place for long periods of time. [...] prescription pain medicine, or muscle relaxants. Take obwk-ksz-lrbjkin and prescription medicines onlyas told by your health care provider. Ask your health care provider if the medicine prescribed to you: ?Requires you to avoid driving or using machinery. ?Can cause constipation. You may need to take these actions to prevent or treat constipation: ?Drink enough fluid to keep your urine pale yellow. ?Take jold-dim-zbmlxkg or prescription medicines. ?Eat foods that are [...] provider. Document Revised: 04/20/2020 Document Reviewed: 04/20/2020 [employer] Patient Education 2022 [employer]. Follow Up Care 07/14/2023 11:37:07 With:Follow-up with pain management tomorrow as scheduled Address:Unknown When: Unknown With:Pain Clinic: [facility] [phone] Address:Unknown When:07/15/2023 12:02:43 With:Cheyanne Rosas Address: [address], [address] [address]- Business (1) When:Within 3 Day(s) [facility]04-21-2024 Evaluation + Plan noteExtracted from: Title:ED Note Author:Angelic Reece PA-C Gerry e:07/14/23 1. Exacerbation of chronic b ack [...] Date:07/15/2023 01:45:00 PM Scheduled Provider:Dory Shepherd PA-C [facility] Type:Pain Management - New (FT) Appointment Date:07/17/2023 07:40:00 AM Scheduled Provider:Cheyanne Rincon Location:[facility] Appointment Type:FM New Patient - Adult [facility]04-18-2024 Evaluation + Plan noteExtracted from: Title:ED Note Author:Balbina Bryant M.D. te:07/11/23 1. Chronic back pain (M54.9: Dorsalgia, [...] Date:07/15/2023 01:45:00 PM Scheduled Provider:Dory Shepherd PA-C Location:[facility] Appointment Type:Pain Management - New (FT) Appointment Date:07/17/2023 07:40:00 AM Scheduled Provider:Cheyanne Rincon Location:[facility] Appointment Type:FM New Patient - Adult [facility]04-18-2024 Hospital Discharge instructions Patient Education 07/11/2023 10:06:49 [...] pull them backward. Do not sit or paper machine backtender one place for long periods of time. [...] prescription pain medicine, or muscle relaxants. Take iudf-zan-ubvlopp and prescription medicines onlyas told by your health care provider. Ask your health care provider if the medicine prescribed to you: ?Requires you to avoid driving or using machinery. ?Can cause constipation. You may need to take these actions to prevent or treat constipation: ?Drink enough fluid to keep your urine pale yellow. ?Take zqel-sbe-gjjhucq or prescription medicines. ?Eat foods that are [...] provider. Document Revised: 04/20/2020 Document Reviewed: 04/20/2020 [employer] Patient Education 2022 [employer]. 07/11/2023 10:06:49 Managing Chronic Back Pain Managing [...] you do a task in which you paper machine backtender one place for a long time, place [...] instructions at home: Medicines Treatment may include cjjs-yvn-zzzucvb or prescription medicines for pain and inflammation that aretaken by mouth or applied to the skin. Another treatment may include muscle relaxants. Take awxc-tnh-qvjwstp and prescription medicines only as told by your health care provider. Ask your health care provider if the medicine prescribed to you: ?Requires you to avoid driving or using machinery. ?Can cause constipation. You may need to take these actions to prevent or treat constipation: ?Drink enough fluid to keep your urine pale yellow. ?Take wklk-qvs-xjejwzm or prescription medicines. ?Eat foods that are [...] online and in-person support groups through: The Scottish Chronic Pain Association: theacpa.org Pain Connection Program: [...] provider. Document Revised: 04/21/2020 Document Reviewed: 12/29/2019 [employer] Patient Education 2022 [employer]. Follow Up Care 07/11/2023 09:19:03 With:Cheyanne Rosas Address: [address], [address] [place] [id number] Business (1) When:07/14/2023 09:59:05 Comments:Make sure to follow-up with your primary doctor and the pain management. Return to the emergency room if your pain gets worse, bowel or bladder incontinence, numbness/tingling in the saddle/groin area, weakness in your legs or any new symptoms. 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 She has 4 [...] in the care of your patient. Declan Del Angel, Ph.D. Professor, Department of Psychiatry Director, Division of Psychology [facility] (o) [phone] documented in this [facility] Work Phone: 1(688) 855-880704-13-2024 Hospital Discharge instructions Patient Education 07/06/2023 19:51:44 [...] home: Managing pain, stiffness, and swelling Take dlxx-uul-gabnhlu and prescription medicines only as told by [...] each day. Do not sit, drive, or paper machine backtender one place for more than 30 minutes [...] put less stress on your back. Take soqt-ihm-rucugrw and prescription medicines only as told by your health care provider, and apply heat or ice as told. This information is not intended to replace advice given to you by your health care provider. Make sure you discuss any questions you have with your health care provider. Document Revised: 06/02/2021 Document Reviewed: 06/02/2021 [employer] Patient Education 2022 [employer]. Follow Up Care 07/06/2023 18:10:42 With:Cheyanne Rosas Address: [address] [place] [address], [facility] [address] [place] [phone] Business (1) When:Within 3 Day(s) [facility]04-13-2024 Evaluation + Plan noteExtracted from: Title:ED Note [...] Date:07/15/2023 01:45:00 PM Scheduled Provider:Dory Shepherd PA-C [facility] Appoint[facility] Type:Pain Management - New () Appointment Date:07/17/2023 07:40:00 AM Scheduled Provider:Cheyanne Rincon Location:[facility] Appointment Type:FM New Patient - Adult [facility]04-06-2024 Hospital Discharge instructions Patient Education 06/29/2023 14:20:12 [...] pull them backward. Do not sit or paper machine backtender one place for long periods of time. [...] prescription pain medicine, or muscle relaxants. Take ojet-ysx-cjazjar and prescription medicines onlyas told by your health care provider. Ask your health care provider if the medicine prescribed to you: ?Requires you to avoid driving or using machinery. ?Can cause constipation. You may need to take these actions to prevent or treat constipation: ?Drink enough fluid to keep your urine pale yellow. ?Take aaxc-jes-sdhhnin or prescription medicines. ?Eat foods that are [...] provider. Document Revised: 04/20/2020 Document Reviewed: 04/20/2020 [employer] Patient Education 2022 [employer]. 06/29/2023 14:20:12 Acute Back Pain, Adult Acute [...] home: Managing pain, stiffness, and swelling Take axly-egc-beknhde and prescription medicines only as told by [...] each day. Do not sit, drive, or paper machine backtender one place for more than 30 minutes [...] put less stress on your back. Take zjty-yvg-wznbwhj and prescription medicines only as told by your health care provider, and apply heat or ice as told. This information is not intended to replace advice given to you by your health care provider. Make sure you discuss any questions you have with your health care provider. Document Revised: 06/02/2021 Document Reviewed: 06/02/2021 [employer] Patient Education 2022 [employer]. Follow Up Care 06/29/2023 13:03:37 With:Cheyanne Rosas Address: [address], [facility] [address] [address]- Business (1) When:07/02/2023 14:07:11 Comments:Follow-up with your primary care provider in 3 to 5 days. If symptoms worsen, do not improve, or new symptoms arise please report back to emergency department for further evaluation. [facility]04-06-2024 Evaluation + Plan noteExtracted from: Title:ED Note [...] Date:07/15/2023 01:45:00 PM Scheduled Provider:Dory Shepherd PA-C [facility] Type:Pain Management - New () Appointment Date:07/17/2023 07:40:00 AM Scheduled Provider:Cheyanne Rincon Location:[facility] Appointment Type: New Patient - Adult [facility]04-04-2024 Hospital Discharge instructions Patient Education 06/27/2023 12:37:54 [...] pull them backward. Do not sit or paper machine backtender one place for long periods of time. [...] a greater risk of getting burned. Take ampk-ffn-twrodfy and prescription medicines only as told by [...] provider. Document Revised: 09/14/2021 Document Reviewed: 09/14/2021 [employer] Patient Education 2022 [employer]. 06/27/2023 12:37:54 Herniated Disk Herniated Disk A [...] Follow these instructions at home: Medicines Take tjvz-bca-zawgrnv and prescription medicines only as told by your health care provider. Ask your health care provider if the medicine prescribed to you: ?Requires you to avoid driving or using heavy machinery. ?Can cause constipation. You may need to take these actions to prevent or treat constipation: ?Drink enough fluid to keep your urine pale yellow. ?Take lcrv-zjs-qwmwmxr or prescription medicines. ?Eat foods that are [...] provider. Document Revised: 06/29/2020 Document Reviewed: 06/29/2020 [employer] Patient Education 2022 [employer] Follow Up Care 06/27/2023 11:49:45 With:[facility]: [place] [phone] Address:Unknown When:06/30/2023 12:22:32 With:Cheyanne Rosas Address: [address] [facility] [address] [address]- Business (1) When:Within 3 Day(s) [facility]04-04-2024 Evaluation + Plan noteExtracted from: Title:ED Note [...] Appointment Date:07/17/2023 07:40:00 AM Scheduled Provider:Cheyanne Rincon Location:[facility] Appointment Type: New Patient - Adult [facility]04-01-2024 Evaluation + Plan noteExtracted from: Title:ED Note [...] Appointment Date:07/17/2023 07:40:00 AM Scheduled Provider:Cheyanne Rincon Location:[facility] Appointment Type: New Patient - Adult [facility]04-01-2024 Hospital Discharge instructions Patient Education 06/24/2023 11:56:52 [...] pull them backward. Do not sit or paper machine backtender one place for long periods of time. [...] prescription pain medicine, or muscle relaxants. Take uhmc-ubj-libitom and prescription medicines onlyas told by your health care provider. Ask your health care provider if the medicine prescribed to you: ?Requires you to avoid driving or using machinery. ?Can cause constipation. You may need to take these actions to prevent or treat constipation: ?Drink enough fluid to keep your urine pale yellow. ?Take avfg-pos-jiabgsf or prescription medicines. ?Eat foods that are [...] provider. Document Revised: 04/20/2020 Document Reviewed: 04/20/2020 Elsevier Patient Education 2022 [employer]. Follow Up Care 06/24/2023 09:43:03 With:Cheyanne Rosas Address: [address], [facility] [place] [phone] Business (1) When:06/27/2023 11:48:27 Comments:Follow-up with your primary doctor and your back specialist. Return to the emergency room if your pain gets worse or any new symptoms. [facility]03-30-2024 Hospital Discharge instructions Patient Education 06/22/2023 18:48:41 Viral Gastroenteritis, Adult, Ugrg-sn-Fyxi Viral Gastroenteritis, Adult Viral gastroenteritis is also [...] younger than 2 years. Living in a chcf. Going on cruise ships. What are the [...] cannot use soap and water, use hand compounding and finishing supervisor. Make sure that all people in your home wash their hands well and often. Take dsjj-tha-gssmkqh and prescription medicines only as told by [...] cannot use soap and water, use hand compounding and finishing supervisor. This information is not intended to replace advice given to you by your health care provider. Make sure you discuss any questions you have with your health care provider. Document Revised: 01/08/2022 Document Reviewed: 01/08/2022 [employer] Patient Education 2022 [employer]. Follow Up Care 06/22/2023 14:18:20 With:Cheyanne Rosas Address: [address] [place] [address] [place] [phone] Business (1) When:06/25/2023 18:47:46 Comments:Call the office of [...] weakness, or any new or worsening symptoms. [facility]03-30-2024 Evaluation + Plan noteExtracted from: Title:ED Note Author:Susu Lamar PA-C Date :06/22/23 Acute gastroenteritis (K52.9 : Noninfective gastroenteritis and colitis, unspecified) Orders: dicyclomine, 10 mg = 1 cap(s), Oral, QID, PRN Other (see comment), For abdominal cramping, # 12 cap(s), Refills(s) 0, [id number], [facility], cm, 06/22/23 14:24:00 EDT, Height/Length [...] Appointment Date:07/17/2023 07:40:00 AM Scheduled Provider:Cheyanne Rincon Location:[facility] Appointment Type:FM New Patient - Adult [facility]03-23-2024 Hospital Discharge instructions Patient Education 06/15/2023 18:41:01 [...] pull them backward. Do not sit or paper machine backtender one place for long periods of time. [...] prescription pain medicine, or muscle relaxants. Take xhsc-pad-jdmeqza and prescription medicines onlyas told by your health care provider. Ask your health care provider if the medicine prescribed to you: ?Requires you to avoid driving or using machinery. ?Can cause constipation. You may need to take these actions to prevent or treat constipation: ?Drink enough fluid to keep your urine pale yellow. ?Take sutc-syg-pjjysrm or prescription medicines. ?Eat foods that are [...] provider. Document Revised: 04/20/2020 Document Reviewed: 04/20/2020 [employer] Patient Education 2022 [employer]. Follow Up Care 06/15/2023 17:57:51 With:Cheyanne Roass Address: [facility] [address], [facility] [address] [place] [phone] Business (1) When:06/18/2023 18:33:35 Comments:Return to the emergency room if your pain gets worse, bowel or bladder incontinence, numbness/tingling in the saddle/groin area or any new symptoms. [facility]03-23-2024 Emergency department Note* Germaine Diaz, 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 - 06/15/2023 2:33 PM EDT Chief Complaint [...] of chronic back pain ROX Martinez 06/15/23 9293 documented in this [facility] Work Phone: 1(212) 120-388403-23-2024 Physician Emergency department Note* ROX Martinez - [...] chronic back pain ROX Martinez 06/15/23 1537 [facility] Work Phone: 1(975) 898-736003-23-2024 Evaluation + Plan noteExtracted from: Title:ED Note Author:Annette Watkins, Balbina Celis te:06/15/23 1. Chronic back pain (M54.9: Dorsalgia, [...] Appointment Date:07/17/2023 07:40:00 AM Scheduled Provider:Cheyanne Rincon Location:[facility] Appointment Type:FM New Patient - Adult [facility]03-19-2024 Hospital Discharge instructions Patient Education 06/11/2023 20:11:42 Chronic Back Pain, Pbjo-st-Zdgp Chronic Back Pain When back pain lasts [...] pull them backward. Do not sit or paper machine backtender one place for long periods of time. [...] prescription pain medicine, or muscle relaxants. Take xvtj-zsa-ajtsrdv and prescription medicines only as told by your doctor. Ask your doctor if the medicine prescribed to you: ?Requires you to avoid driving or using machinery. ?Can cause trouble pooping (constipation). You may need to take these actions to prevent or treat trouble pooping: ?Drink enough fluid to keep your pee (urine) pale yellow. ?Take auvr-ths-dlbzveq or prescription medicines. ?Eat foods that are [...] provider. Document Revised: 04/20/2020 Document Reviewed: 04/20/2020 [employer] Patient Education 2022 [employer]. Follow Up Care 06/11/2023 18:49:29 With:Cheyanne Rosas [facility] [place] [phone] Business (1) When:06/14/2023 19:30:55 Comments:Take the steroids once daily and to complete the course. Use medications as prescribed as needed for pain. Please follow-up with your primary care doctor next 2 to 3 days. Please return to the ED forany new or worsening symptoms. [facility]03-19-2024 Evaluation + Plan noteExtracted from: Title:ED Note [...] Appointment Date:07/17/2023 07:40:00 AM Scheduled Provider:Cheyanne Rincon Location:[facility] Appointment Type:FM New Patient - Adult [facility]03-16-2024 Emergency department Note* Munira Perez RN - 06/08/2023 6:29 PM EDT Registration called for registration as pt has been up for discharge for 20 min. [facility]jmlaa75-94-2968 Emergency department Note* Munira Perez RN - [...] Discussed with attending who did evaluate patient utbv-yh-zxuo, developed plan for pain control here, will be given fentanyl dose here with Zofran. Being prescription for Percocet. Encourage rest hydration outpatient follow-up as discussed, close return precautions if symptoms get worse. Did discuss with attending, Allyson Nicole DO, who did evaluate patient ucum-vl-fjtp. Patient otherwise stable at this time, vital [...] aggravated her pain more. documented in this encounterMer[facility] HospitalEaibnh74-16-4220 Hospital Discharge instructions* Discharge Instructions* Flex Jansen PA-C - 06/08/2023 5:58 PM EDT Medication as directed, beware may cause drowsiness. Rest and hydrate, follow-up with your doctors in the next few days, return as needed. * Attachments The following attachments cannot be sent through Care Everywhere. * Back Pain (Serbian) documented in this encounterMercy Health Lor[facility] [id number] Physician Emergency department Note* Flex Jansen PA-C [...] Discussed with attending who did evaluate patient hqlg-gw-pycv, developed plan for pain control here, will be given fentanyl dose here with Zofran. Being prescription for Percocet. Encourage rest hydration outpatient follow-up as discussed, close return precautions if symptoms get worse. Did discuss with attending, Allyson Nicole DO, who did evaluate patient aksi-gz-jzpj. Patient otherwise stable at this time, vital signs are stable, patient afebrile, and nontoxic in appearance.Attending physician available for immediate consultation throughout entire patient's stay. Decision to Disposition Home or Admit: Discharge FINAL IMPRESSION: 1. Bilateral low back pain [facility] HospitalFpkitb13-13-1201 Emergency department Note* Cheryl Joiner RN - 06/08/2023 5:39 PM EDT Pt arrives via triage for complaints of lower back apin. Pt states she has hx of bulging disc and states that she was in the car for a long time and thinks that it aggravated her pain more. [facility] HospitalZokuap09-16-5330 History of Present illness Narrative* Elke Adams [...] conservative management, you would be a great c andidate for spinal cord stimulation. 2) We discussed [...] y.o. 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 Patient was being prescr ibed opioid therapy by her PCP, whom recently left the practice, but she would like a more longterm solution to her pain, and she is [...] significant central canal narrowing. documented in this [facility] Work Phone: 1(745) 107-783003-11-2024 Hospital Discharge instructions Patient Education 06/03/2023 20:00:59 [...] home: Managing pain, stiffness, and swelling Take puqr-bbr-zgljivb and prescription medicines only as told by [...] each day. Do not sit, drive, or paper machine backtender one place for more than 30 minutes [...] put less stress on your back. Take jocc-por-zwhzdlz and prescription medicines only as told by your health care provider, and apply heat or ice as told. This information is not intended to replace advice given to you by your health care provider. Make sure you discuss any questions you have with your health care provider. Document Revised: 06/02/2021 Document Reviewed: 06/02/2021 [employer] Patient Education 2022 [employer] 06/03/2023 20:00:59 Chronic Back Pain, Tssa-tf-Gkws Chronic Back Pain When back pain lasts [...] pull them backward. Do not sit or paper machine backtender one place for long periods of time. [...] prescription pain medicine, or muscle relaxants. Take iman-sim-jzsullp and prescription medicines only as told by your doctor. Ask your doctor if the medicine prescribed to you: ?Requires you to avoid driving or using machinery. ?Can cause trouble pooping (constipation). You may need to take these actions to prevent or treat trouble pooping: ?Drink enough fluid to keep your pee (urine) pale yellow. ?Take aqqc-vqv-jpfvfxe or prescription medicines. ?Eat foods that are [...] provider. Document Revised: 04/20/2020 Document Reviewed: 04/20/2020 [employer] Patient Education 2022 [employer]. Follow Up Care 06/03/2023 18:58:41 With:Cheyanne Rosas Address: [address] [place] [address] [facility] (1) When:06/06/2023 19:33:42 Comments:Follow-up with your primary care provider in 3 to 5 days. If symptoms worsen, do not improve, or new symptoms arise please report back to emergency department for further evaluation. [facility]03-11-2024 Evaluation + Plan noteExtracted from: Title:ED Note [...] Appointment Date:06/13/2023 07:40:00 AM Scheduled Provider:Cheyanne Rincon Location:[facility] Appointment Type: New Patient - Adult [facility]03-08-2024 Hospital Discharge instructions Patient Education 05/31/2023 18:15:18 [...] Follow these instructions at home: Medicines Take dcwv-ktc-qeqtwzl and prescription medicines only as told by [...] Watch your condition for any changes. Take hwvj-ast-oowpqhn and prescription medicines only as told by [...] provider. Document Revised: 04/29/2020 Document Reviewed: 07/20/2019 [employer] Patient Education 2022 [employer]. Follow Up Care 05/31/2023 16:33:31 With:Cheyanne Rosas Address: [address] [place], [place] [phone] Business (1) When:06/03/2023 18:09:48 [facility]03-03-2024 Hospital Discharge instructions Patient Education 05/26/2023 20:04:37 [...] Follow these instructions at home: Medicines Take jbtt-qav-xluwxfd and prescription medicines only as told by your health care provider. Ask your health care provider if the medicine prescribed to you: ?Requires you to avoid driving or using heavy machinery. ?Can cause constipation. You may need to take these actions to prevent or treat constipation: ?Drink enough fluid to keep your urine pale yellow. ?Take cndi-pbb-jwbpesn or prescription medicines. ?Eat foods that are [...] provider. Document Revised: 06/18/2022 Document Reviewed: 08/04/2019 [employer] Patient Education 2022 [employer]. Follow Up Care 05/26/2023 19:25:03 With:Ralph BEYER, VANESSA Aaron, MED Address: [address] [place] [address], [facility] [place] [address]- When:05/29/2023 [facility]03-03-2024 Evaluation + Plan noteExtracted from: Title:ED Note [...] Appointment Date:06/13/2023 07:40:00 AM Scheduled Provider:Cheyanne Rincon Location:[facility] Appointment Type:FM New Patient - Adult [facility]03-01-2024 Hospital Discharge instructions Patient Education 05/24/2023 20:43:51 Chronic Back Pain, Uloq-wb-Cmsf Chronic Back Pain When back pain lasts [...] pull them backward. Do not sit or paper machine backtender one place for long periods of time. [...] prescription pain medicine, or muscle relaxants. Take mzts-feh-jhrbgwh and prescription medicines only as told by your doctor. Ask your doctor if the medicine prescribed to you: ?Requires you to avoid driving or using machinery. ?Can cause trouble pooping (constipation). You may need to take these actions to prevent or treat trouble pooping: ?Drink enough fluid to keep your pee (urine) pale yellow. ?Take nxjv-tsc-bbynzym or prescription medicines. ?Eat foods that are [...] provider. Document Revised: 04/20/2020 Document Reviewed: 04/20/2020 [employer] Patient Education 2022 [employer]. Follow Up Care 05/24/2023 18:42:41 With:Cheyanne Rosas Address: [address] [place] [address], [facility] [place] [phone] Business (1) When:Within 3 Day(s) [facility]03-01-2024 Evaluation + Plan noteExtracted from: Title:ED Note [...] Appointment Date:06/13/2023 07:40:00 AM Scheduled Provider:Cheyanne Rincon Location:[facility] Appointment Type:FM New Patient - Adult [facility]02-26-2024 History of Present illness Narrative* Belkis Hernandez, - 05/20/2023 8:15 AM ESTAssociated Order(s): Hand / UE Inj/Asp: R thumb CMC Post-Procedure Diagnose(s): CMC arthritis History present illness: Patient presents today for evaluation status post mechanical fall down 2 stairs that occurred on 11 May 2023. She was walking the dog in the snow. She slipped and fell. Zxrdg-pgeu-fadvpoqk and otherwise healthy. She describes right radial [...] called to verify the correctpatient, procedure, equipment, client support administrator and site/side marked as required. Patient was prepped and draped in the usual sterile fashion. documented in this [facility] Work Phone: 1(321) 894-803602-22-2024 Hospital Discharge instructions Patient Education 05/16/2023 17:04:02 [...] provider if you may use a hand fitter helper to strengthen your muscles. If your thumb feels stiff while you are exercising it, try doing the exercises while soaking your hand in warm water. General instructions Take dwux-dca-bmapkyd and prescription medicines only as told by [...] provider. Document Revised: 01/17/2021 Document Reviewed: 01/17/2021 [employer] Patient Education 2022 [employer] 05/16/2023 17:04:02 Cast or Splint Care, Adult [...] on part of yourbody. General instructions Take feek-nlx-yoxwsta and prescription medicines only as told by [...] provider. Document Revised: 09/05/2021 Document Reviewed: 09/05/2021 [employer] Patient Education 2022 [employer]. Follow Up Care 05/16/2023 16:17:01 With:Cheyanne Rosas Address: [address] [place], [place] [phone] [facility] (1) When:05/19/2023 16:52:35 [facility]02-22-2024 Evaluation + Plan noteExtracted from: Title:ED Note [...] Appointment Date:06/13/2023 07:40:00 AM Scheduled Provider:Cheyanne Rincon Location:[facility] Appointment Type:FM New Patient - Adult [facility]02-20-2024 Hospital Discharge instructions Patient Education 05/14/2023 12:06:20 [...] Follow these instructions at home: Medicines Take tbzl-hhc-xmijpef and prescription medicines only as told by [...] for Headache and Migraine Patients (CHAMP): headachemigraine.org [employer] Migraine Foundation: americanmigrainefoundation.org National Headache Foundation: headaches.org [...] provider. Document Revised: 04/27/2020 Document Reviewed: 04/27/2020 Elsevier Patient Education 2022 [employer] Follow Up Care 05/14/2023 10:21:04 With:Cheyanne Rosas Address: [address], [facility] [address] [address]- Business (1) When:05/17/2023 11:54:32 [facility]02-18-2024 Evaluation + Plan noteExtracted from: Title:ED Note Author:Arley SLATER Nikhil Noemy Date: Wrist fracture (S62.109A: Fr acture of [...] Appointment Date:06/13/2023 07:40:00 AM Scheduled Provider:Cheyanne Rincon Location:[facility] Appointment Type: New Patient - Adult [facility]02-18-2024 Hospital Discharge instructions Patient Education 05/12/2023 10:45:04 [...] is stable enough for you to begin odmtj-aw-kwiyco exercises. You may also be prescribed pain [...] cast, splint, or sling on yourwrist. Do xxypa-vh-ghpdpn exercises only as told by your health care provider or physical therapist. Medicines Take yfwm-lhh-ygwzsem and prescription medicines only as told by your health care provider. Ask your health care provider if the medicine prescribed to you: ?Requires you to avoid driving or using machinery. ?Can cause constipation. You may need to take these actions to prevent or treat constipation: ?Drink enough fluid to keep your urine pale yellow. ?Take zcnq-qhg-daqrrgd or prescription medicines. ?Eat foods that are [...] provider. Document Revised: 06/21/2020 Document Reviewed: 06/21/2020 [employer] Patient Education 2022 [employer]. Follow Up Care 05/12/2023 10:19:15 With:Esvin Romero Address: [address] [place] [phone] [facility] (1) When:05/15/2023 10:42:26 Comments:Follow-up with Dr. Romero in office.Take oxycodone as prescribed. You may take the 5 mg oxycodone tablet on top of your baseline Percocet for breakthrough pain from your fracture. [facility]02-17-2024 Hospital Discharge instructions Patient Education 05/11/2023 17:37:45 Wrist Fracture Treated With Immobilization, Cxnf-fk-Ljms Wrist Fracture Treated With Immobilization A wrist [...] has healed enough, you may begin doing dmgxq-uw-noqzxc exercises. Follow these instructions at home: If [...] splint, or sling on your wrist. Do gvlty-np-luqwcf exercises only as told by your doctor. Medicines Take stsg-hga-byyamfm and prescription medicines only as told by [...] provider. Document Revised: 06/21/2020 Document Reviewed: 06/21/2020 [employer] Patient Education 2022 [employer] 05/11/2023 17:37:45 Cast or Splint Care, Adult, Yvzu-wi-Oubg Cast or Splint Care, Adult Casts and [...] part of your body. General instructions Take tyvu-axh-cdmaina and prescription medicines only as told by [...] provider. Document Revised: 09/05/2021 Document Reviewed: 09/05/2021 [employer] Patient Education 2022 [employer]. Follow Up Care 05/11/2023 16:21:24 With:Esvin Romero Address: [address] [place] [address]- Business (1) When:05/14/2023 17:17:09 Comments:Call Dr for diagnosis based follow up With:Cheyanne Rosas Address: [address] [facility], [facility] [address] [place] [address]- Business (1) When:05/14/2023 17:17:07 [facility]02-14-2024 Hospital Discharge instructions Patient Education 05/08/2023 13:05:53 Abdominal Pain, Adult, Qoee-zd-Ezkq Abdominal Pain, Adult Many things can cause belly (abdominal) pain. Most times, belly pain is not dangerous. Many cases of belly pain can be watched and treated at home. Sometimes, though, belly pain is serious. Your doctor will try to find the cause of your belly pain. Follow these instructions at home: Medicines Take wahj-lsx-becunir and prescription medicines only as told by [...] your belly pain for any changes. Take jviq-slr-llxipog and prescription medicines only as told by [...] provider. Document Revised: 07/20/2019 Document Reviewed: 07/20/2019 [employer] Patient Education 2022 [employer]. Follow Up Care 05/08/2023 11:25:27 With:Katharina Kidd Address: [address], [facility] [address] [phone] Business (1) When:05/11/2023 12:34:39 With:Cheyanne Rosas Address: [address], [address] [facility] [address] [place] [address]- Business (1) When:05/11/2023 12:34:31 Comments:Follow-up with your primary care provider in 3 to 5 days. If symptoms worsen, do not improve, or new symptoms arise please report back to emergency department for further evaluation. [facility]02-04-2024 Emergency department Note* Laurita Baires RN - 04/28/2023 12:39 AM EST Patient discharged to home, alert and oriented, skin warm, dry and pink. Denies needs and or questions. Will follow-up as directed, patient encouraged to return for worsening or new symptoms or otherconcerns. [facility] [id number] Emergency department Note* Laurita Baires RN - [...] Loc Pain Edu? Excl. in GC? Vitals: 04/27/232239 BP: (!) 170/96 Pulse: 83 Resp: 16 [...] return precautions were given. Time of Disposition: 0023 New Prescriptions KETOROLAC (TORADOL) 10 MG TABLET [...] injury or complaints. A&Ox4. documented in this encounterMercy [facility] HospitalTamkzt47-17-1893 Hospital Discharge instructions* Discharge Instructions* Sharan Hwang MD - 04/28/2023 12:28 AM EST Dear Jerad Tracy, Thank you for allowing me and the rest of the Emergency Department staff at the [facility] ED to care for you today. You [...] can call your insurance company or call [facility] at [phone] for assistance in finding a doctor. If [...] assistance with paying for medications, please visit https://www.[employer]/ where you can find the best prices for prescription and rncj-niq-fisgjpl medications. Wishing you a speedy recovery, Sharan Hwang MD documented in this encounterMercy Health Lor[facility] HospitalHwbqxr28-14-4415 Emergency department Note* Laurita Baires RN - 04/28/2023 12:24 AM EST Pt ambulated to restroom with steady gait. Pt states her pain has improved and is now 5/10 and tolerable. Physician aware. [facility] HospitalXlflyv42-87-4580 Emergency department Note* Laurita Baires RN - 04/27/2023 11:26 PM EST To bedside for rounding. Pt medicated for 10/10 pain per MAR. Pt resting quietly. No other needs expressed at this time. Call light in reach. [facility] HospitalXxmwjh80-19-1315 Emergency department Note* Laurita Baires RN - 04/27/2023 11:00 PM EST To bedside to introduce self to pt and address needs. Resident at bedside. Pt resting quietly. No needs expressed at this time. Call light within reach. [address]03-2024 Physician Emergency department Note* Sharan Hwang [...] as of 04/28/23 0030 Sun Apr 28, [id number] Patient's pain is improved, she will ambulate [...] Electronically signed by: Sharan Hwang MD, [facility]28/2023 [id number] Emergency [facility] Note* Rebecca Gómez RN - 04/27/2023 10:39 PM EST Patient arrives to triage stating she has a herniated L4-L5 disc, got on an inversion table tonightand is now having back pain. Denies any other injury or complaints. A&Ox4. [place] [id number] Evaluation + Plan noteExtracted from: Title:ED Note [...] date 04/26/23 9:38:00 EST, 04/26/23 9:38:00 EST [facility]02-02-2024 Hospital Discharge instructions Patient Education 04/26/2023 10:11:06 [...] pull them backward. Do not sit or paper machine backtender one place for long periods of time. [...] prescription pain medicine, or muscle relaxants. Take jren-dio-aclywdx and prescription medicines onlyas told by your health care provider. Ask your health care provider if the medicine prescribed to you: ?Requires you to avoid driving or using machinery. ?Can cause constipation. You may need to take these actions to prevent or treat constipation: ?Drink enough fluid to keep your urine pale yellow. ?Take hhdo-kwj-gfsnlyb or prescription medicines. ?Eat foods that are [...] provider. Document Revised: 04/20/2020 Document Reviewed: 04/20/2020 [employer] Patient Education 2022 [employer]. Follow Up Care 04/26/2023 09:28:24 With:ANTONIO HUSAIN Address: [address] [place] [address] [phone] Business (1) When:04/29/2023 10:05:29 Comments:Make sure to follow-up with your neurosurgeon as scheduled and your primary doctor. Return to the emergency room if your pain gets worse, bowel or bladder incontinence, numbness/tingling in the saddle/groin area, weakness in your leg or any new symptoms. [facility]01-29-2024 Hospital Discharge instructions Patient Education 04/22/2023 20:37:29 [...] home: Managing pain, stiffness, and swelling Take bdqh-fhe-fwbzeee and prescription medicines only as told by [...] each day. Do not sit, drive, or paper machine backtender one place for more than 30 minutes [...] put less stress on your back. Take tkqs-yex-hytmpbi and prescription medicines only as told by your health care provider, and apply heat or ice as told. This information is not intended to replace advice given to you by your health care provider. Make sure you discuss any questions you have with your health care provider. Document Revised: 06/02/2021 Document Reviewed: 06/02/2021 [employer] Patient Education 2022 [employer]. 04/22/2023 20:37:29 Chronic Back Pain, Vekw-fj-Lwry Chronic Back Pain When back pain lasts [...] pull them backward. Do not sit or paper machine backtender one place for long periods of time. [...] prescription pain medicine, or muscle relaxants. Take vmfr-weu-nutaefe and prescription medicines only as told by your doctor. Ask your doctor if the medicine prescribed to you: ?Requires you to avoid driving or using machinery. ?Can cause trouble pooping (constipation). You may need to take these actions to prevent or treat trouble pooping: ?Drink enough fluid to keep your pee (urine) pale yellow. ?Take ycoz-bar-gfllonb or prescription medicines. ?Eat foods that are [...] provider. Document Revised: 04/20/2020 Document Reviewed: 04/20/2020 [employer] Patient Education 2022 [employer]. Follow Up Care 04/22/2023 20:10:10 With:ANTONIO HUSAIN Address: [address] [place] [phone] Business (1) When:04/25/2023 20:23:39 Comments:Follow-up with your primary care provider in 3 to 5 days. If symptoms worsen, do not improve, or new symptoms arise please report back to emergency department for further evaluation. [facility]01-29-2024 Evaluation + Plan noteExtracted from: Title:ED Note [...] date 04/22/23 20:19:00 EST, 04/22/23 20:19:00 EST [facility]01-18-2024 Hospital Discharge instructions Patient Education 04/11/2023 19:08:19 [...] pull them backward. Do not sit or paper machine backtender one place for long periods of time. [...] prescription pain medicine, or muscle relaxants. Take cpui-rae-phijcvn and prescription medicines onlyas told by your health care provider. Ask your health care provider if the medicine prescribed to you: ?Requires you to avoid driving or using machinery. ?Can cause constipation. You may need to take these actions to prevent or treat constipation: ?Drink enough fluid to keep your urine pale yellow. ?Take djci-njd-gqvhdhv or prescription medicines. ?Eat foods that are [...] provider. Document Revised: 04/20/2020 Document Reviewed: 04/20/2020 [employer] Patient Education 2022 [employer]. Follow Up Care 04/11/2023 18:29:24 With:ANTONIO HUSAIN Address: [address] [place] [phone]- [phone] Business (1) When:04/14/2023 18:58:52 [facility]01-18-2024 Evaluation + Plan noteExtracted from: Title:ED Note [...] date 04/11/23 18:57:00 EST, 04/11/23 18:57:00 EST [facility]01-18-2024 Hospital Discharge instructions Patient Education 04/11/2023 01:37:11 Chronic Back Pain, Hfvf-nk-Pnfy Chronic Back Pain When back pain lasts [...] pull them backward. Do not sit or paper machine backtender one place for long periods of time. [...] prescription pain medicine, or muscle relaxants. Take zojv-yme-zexipra and prescription medicines only as told by your doctor. Ask your doctor if the medicine prescribed to you: ?Requires you to avoid driving or using machinery. ?Can cause trouble pooping (constipation). You may need to take these actions to prevent or treat trouble pooping: ?Drink enough fluid to keep your pee (urine) pale yellow. ?Take pksq-mxj-vdnvsqi or prescription medicines. ?Eat foods that are [...] provider. Document Revised: 04/20/2020 Document Reviewed: 04/20/2020 [employer] Patient Education 2022 [employer]. 04/11/2023 01:37:11 Acute Back Pain, Adult Acute [...] home: Managing pain, stiffness, and swelling Take qrgl-irr-aetlkux and prescription medicines only as told by [...] each day. Do not sit, drive, or paper machine backtender one place for more than 30 minutes [...] put less stress on your back. Take odlg-oaf-sqhbysx and prescription medicines only as told by your health care provider, and apply heat or ice as told. This information is not intended to replace advice given to you by your health care provider. Make sure you discuss any questions you have with your health care provider. Document Revised: 06/02/2021 Document Reviewed: 06/02/2021 [employer] Patient Education 2022 [employer]. Follow Up Care 04/10/2023 22:03:35 With:ANTONIO HUSAIN Address: [address] [place] [phone] Business (1) When:Within 3 Day(s) [facility]01-12-2024 Hospital Discharge instructions Patient Education 04/05/2023 15:51:34 [...] Follow these instructions at home: Medicines Take gvgl-xds-lslchpe and prescription medicines only as told by your health care provider. If you were prescribed an antiviral medicine, take it as told by your health care provider. Do not stop using the antiviral even if you start to feel better. Do not take any new medicines, including xomq-cfn-szivkin medicines or supplements, unless your health care [...] water are not available, use alcohol-based hand compounding and finishing supervisor. Cover any cuts or open sores on [...] contagious). Do not take any medicines, including jouw-zio-zcclmzz medicines or supplements, unless your health care provider approves. This information is not intended to replace advice given to you by your health care provider. Make sure you discuss any questions you have with your health care provider. Document Revised: 01/26/2021 Document Reviewed: 01/26/2021 [employer] Patient Education 2022 [employer]. 04/05/2023 15:51:34 Abdominal Pain, Adult Abdominal Pain, [...] Follow these instructions at home: Medicines Take wctx-xzu-cxlwguw and prescription medicines only as told by [...] Watch your condition for any changes. Take tmhi-kld-dmtcegy and prescription medicines only as told by [...] provider. Document Revised: 04/29/2020 Document Reviewed: 07/20/2019 [employer] Patient Education 2022 [employer] Follow Up Care 04/05/2023 12:31:48 With:ANTONIO HUSAIN Address: [address] [place] [phone] Business (1) When:04/08/2023 15:38:51 [facility]01-12-2024 Evaluation + Plan noteExtracted from: Title:ED Note [...] date 04/05/23 13:07:00 EST, 04/05/23 13:07:00 EST [facility]01-10-2024 Hospital Discharge instructions Patient Education 04/02/2023 22:19:34 Chronic Back Pain, Tzdh-qk-Pdev Chronic Back Pain When back pain lasts [...] pull them backward. Do not sit or paper machine backtender one place for long periods of time. [...] prescription pain medicine, or muscle relaxants. Take cvzq-fvr-jrrbinb and prescription medicines only as told by your doctor. Ask your doctor if the medicine prescribed to you: ?Requires you to avoid driving or using machinery. ?Can cause trouble pooping (constipation). You may need to take these actions to prevent or treat trouble pooping: ?Drink enough fluid to keep your pee (urine) pale yellow. ?Take xtcb-bjd-hhkhobb or prescription medicines. ?Eat foods that are [...] provider. Document Revised: 04/20/2020 Document Reviewed: 04/20/2020 [employer] Patient Education 2022 [employer]. 04/02/2023 22:19:34 Back Exercises, Trmg-xj-Btlb Back Exercises These exercises help to make [...] provider. Document Revised: 05/24/2021 Document Reviewed: 05/24/2021 [employer] Patient Education 2022 [employer]. Follow Up Care 04/02/2023 21:42:13 With:ANTONIO HUSAIN Address: [address] [place] [phone] Business (1) When:04/05/2023 21:59:55 Comments:You can take the naproxen every 12 hours as needed for for pain you can use the Robaxin every 8 hours as needed for pain. Please follow-up with your primary care doctor next 2 to 3 days. Please return to the ED for any new or worsening symptoms. [facility]01-09-2024 Evaluation + Plan noteExtracted from: Title:ED Note [...] date 04/02/23 21:59:00 EST, 04/02/23 21:59:00 EST [facility]01-08-2024 Evaluation + Plan note* Assessment & Plan Note - Chidi Joseph MD - 04/01/2023 9:14 AM ESTAssociated Problem(s): [...] will see this patient in 6 weeks [facility] Work Phone: 1(945) 803-343401-08-2024 Miscellaneous Notes* Assessment & Plan Note - Chidi Joseph MD - 04/01/2023 9:14 AM ESTAssociated Problem(s): [...] patient in 6 weeks documented in this [facility] Work Phone: [phone] 139-635301-08-2024 History of Present illness Narrative* Chidi Joseph MD - 04/01/2023 8:20 AM EST Subjective She has known HCV infection since 2013 in the setting of an opioid use [...] HBVDNAQNPCRL , HBVDNAPCR No results found for: HXKT505 , YWEL253 === 02/13/23 === US ABDOMEN LIMITED LIVER - Impression - No focal intrahepatic lesions noted. The patient is status post cholecystectomy. MACRO: None Signed by: Harshad Tran 02/14/2023 7:30 AM Dictation workstation: [id number] Chronic hepatitis C without hepatic coma (CMS/HCC) [...] patient in 6 weeks documented in this [facility] Work Phone: 1(275) 816-970201-08-2024 Instructions* Patient Instructions* Elke Haas RN - 04/01/2023 8:20 AM EST [phone] (See below for department name when scheduling) [...] located at the following locations: [facility], [facility], [facility]. YOU SHOULD NOT EAT OR DRINK 3 HOURS BEFORE THE EXAM. [x] FOLLOW UP (Department Gastro): due date : 6 Week If you have any questions or need assistance, please don't hesitate to contact us. Dr. Joseph: Office [phone] Hepatology Nurse Coordinator: Elke SEXTON [phone] documented in this [facility] Work Phone: 1(193) 899-245401-02-2024 Hospital Discharge instructions Patient Education 03/26/2023 12:45:13 [...] Follow these instructions at home: Medicines Take kwiu-nfo-rwrltdq and prescription medicines only as told by your health care provider. Ask your health care provider if the medicine prescribed to you: ?Requires you to avoid driving or using heavy machinery. ?Can cause constipation. You may need to take these actions to prevent or treat constipation: ?Drink enough fluid to keep your urine pale yellow. ?Take rfsb-udy-qybidpn or prescription medicines. ?Eat foods that are [...] provider. Document Revised: 07/03/2019 Document Reviewed: 04/23/2019 [employer] Patient Education 2022 [employer] Follow Up Care 03/26/2023 10:48:18 With:ANTONIO SOCORRO Address: [address] [place] [phone] Business (1) When:Within 3 Day(s) [facility]01-02-2024 Evaluation + Plan noteExtracted from: Title:ED Note Author:Arnaldo Jorge Date:03/26 Migraine (G43.909: Migraine, unspecified, not [...] 03/26/23 11:06:00 EST, Infuse over 61, minute(s) [facility]12-30-2023 Hospital Discharge instructions Patient Education 03/23/2023 13:57:23 [...] home: Managing pain, stiffness, and swelling Take xqlt-vnn-foqxvfn and prescription medicines only as told by [...] each day. Do not sit, drive, or paper machine backtender one place for more than 30 minutes [...] put less stress on your back. Take tvvj-joj-zrnlzau and prescription medicines only as told by your health care provider, and apply heat or ice as told. This information is not intended to replace advice given to you by your health care provider. Make sure you discuss any questions you have with your health care provider. Document Revised: 06/02/2021 Document Reviewed: 06/02/2021 [employer] Patient Education 2022 [employer]. 03/23/2023 13:57:23 Chronic Back Pain, Jnej-yr-Pukg Chronic Back Pain When back pain lasts [...] pull them backward. Do not sit or paper machine backtender one place for long periods of time. [...] prescription pain medicine, or muscle relaxants. Take jvna-pur-ykgzkmy and prescription medicines only as told by your doctor. Ask your doctor if the medicine prescribed to you: ?Requires you to avoid driving or using machinery. ?Can cause trouble pooping (constipation). You may need to take these actions to prevent or treat trouble pooping: ?Drink enough fluid to keep your pee (urine) pale yellow. ?Take woit-tsc-kvmnibu or prescription medicines. ?Eat foods that are [...] provider. Document Revised: 04/20/2020 Document Reviewed: 04/20/2020 [employer] Patient Education 2022 [employer]. 03/23/2023 13:57:23 Back Exercises, Idiy-eb-Hwgw Back Exercises These exercises help to make [...] provider. Document Revised: 05/24/2021 Document Reviewed: 05/24/2021 [employer] Patient Education 2022 [employer] Follow Up Care 03/23/2023 12:41:35 With:[facility] [place] [phone] Address:Unknown When:03/26/2023 13:05:55 With:ANTONIO HUSAIN Address: [address] [place] [phone] Business (1) When:03/26/2023 13:05:48 Comments:Follow-up with your primary care provider in 3 to 5 days. If symptoms worsen, do not improve, or new symptoms arise please report back to emergency department for further evaluation. [facility]12-30-2023 Evaluation + Plan noteExtracted from: Title:ED Note [...] date 03/23/23 13:03:00 EST, 03/23/23 13:03:00 EST [facility]12-27-2023 Hospital Discharge instructions Patient Education 03/20/2023 13:38:51 [...] pull them backward. Do not sit or paper machine backtender one place for long periods of time. [...] prescription pain medicine, or muscle relaxants. Take bnrx-hcg-dmhffmp and prescription medicines onlyas told by your health care provider. Ask your health care provider if the medicine prescribed to you: ?Requires you to avoid driving or using machinery. ?Can cause constipation. You may need to take these actions to prevent or treat constipation: ?Drink enough fluid to keep your urine pale yellow. ?Take bfvn-uou-niibzmx or prescription medicines. ?Eat foods that are [...] provider. Document Revised: 04/20/2020 Document Reviewed: 04/20/2020 [employer] Patient Education 2022 [employer]. 03/20/2023 13:38:51 Acute Pain, Adult Acute Pain, [...] Follow these instructions at home: Medicines Take riqy-fru-dodtoxk and prescription medicines only as told by [...] pain is severe. ?Do not take other pcdb-bjh-sfrnpod pain medicines in addition to prescription pain [...] grains, and fresh fruits and vegetables. ?Take xsnk-plw-obnhjns or prescription medicines. ?Limit foods that are [...] or you are no longer ill. Take wcxt-qwj-zqrumbh and prescription medicines only as told by [...] provider. Document Revised: 07/26/2022 Document Reviewed: 07/27/2019 [employer] Patient Education 2022 [employer] 03/20/2023 13:38:51 Radicular Pain Radicular Pain Radicular [...] knees and rising up. Do strength and rbhja-vu-vflgwi exercises only as told by your health care provider or physical therapist. General instructions Take erfu-kbu-gfnoibm and prescription medicines only as told by [...] provider. Document Revised: 09/14/2021 Document Reviewed: 09/14/2021 [employer] Patient Education 2022 [employer]. Follow Up Care 03/20/2023 12:42:50 With:ANTONIO HUSAIN Address: [address] [place] [address]- [phone] Business (1) When:03/23/2023 13:25:02 Comments:Follow-up with your primary care provider in 3 to 5 days. If symptoms worsen, do not improve, or new symptoms arise please report back to emergency department for further evaluation. [facility]12-27-2023 Evaluation + Plan noteExtracted from: Title:ED Note [...] date 03/20/23 13:21:00 EST, 03/20/23 13:21:00 EST [facility]12-18-2023 Evaluation + Plan noteExtracted from: Title:ED Note [...] Function Panel Lipase Level Rapid COVID Antigen ([facility] [place]) [facility]12-18-2023 Hospital Discharge instructions Follow Up Care 03/11/2023 08:57:16 With:ANTONIO HUSAIN Address: [address] [place] [phone] Business (1) When:Within 3 Day(s) [facility]11-21-2023 Hospital Discharge instructions Patient Education 02/12/2023 21:11:24 [...] pull them backward. Do not sit or paper machine backtender one place for long periods of time. [...] prescription pain medicine, or muscle relaxants. Take qcfa-yeh-vlkdbdz and prescription medicines onlyas told by your health care provider. Ask your health care provider if the medicine prescribed to you: ?Requires you to avoid driving or using machinery. ?Can cause constipation. You may need to take these actions to prevent or treat constipation: ?Drink enough fluid to keep your urine pale yellow. ?Take qkjs-cgn-msjlgaq or prescription medicines. ?Eat foods that are [...] provider. Document Revised: 04/20/2020 Document Reviewed: 04/20/2020 [employer] Patient Education 2022 [employer]. Follow Up Care 02/12/2023 19:28:18 With:DALTON JAMES Address: [address] [address] Business (1) When:02/15/2023 20:41:14 [facility]11-21-2023 Evaluation + Plan noteExtracted from: Title:ED Note [...] date 02/12/23 20:39:00 EST, 02/12/23 20:39:00 EST [facility]11-16-2023 Hospital Discharge instructions Patient Education 02/07/2023 20:30:36 Chronic Back Pain, Ongn-zq-Lsuo Chronic Back Pain When back pain lasts [...] pull them backward. Do not sit or paper machine backtender one place for long periods of time. [...] prescription pain medicine, or muscle relaxants. Take haup-lam-plarhts and prescription medicines only as told by your doctor. Ask your doctor if the medicine prescribed to you: ?Requires you to avoid driving or using machinery. ?Can cause trouble pooping (constipation). You may need to take these actions to prevent or treat trouble pooping: ?Drink enough fluid to keep your pee (urine) pale yellow. ?Take apwg-tnp-xprlftc or prescription medicines. ?Eat foods that are [...] provider. Document Revised: 04/20/2020 Document Reviewed: 04/20/2020 [employer] Patient Education 2022 [employer]. 02/07/2023 20:30:36 Back Exercises, Ikdu-bm-Auaz Back Exercises These exercises help to make [...] provider. Document Revised: 05/24/2021 Document Reviewed: 05/24/2021 [employer] Patient Education 2022 [employer]. Follow Up Care 02/07/2023 19:11:26 With:Declan COLVIN Address: [address] [place], [place] [id number] [facility] (1) When:02/10/2023 19:59:42 Comments:Take the steroids once daily until you have completed the course. You can use the anti-inflammatory, muscle relaxers as prescribed as needed for pain. Please follow-up with your primary care doctor in addition to spine doctor for further evaluation and management. With:XXXX NONE Address: ID When:Within 3 Day(s) [facility]11-07-2023 Hospital Discharge instructions Patient Education 01/29/2023 12:30:56 [...] Follow these instructions at home: Medicines Take ssgs-dmn-pqysvbv and prescription medicines only as told by your health care provider. Ask your health care provider if the medicine prescribed to you: ?Requires you to avoid driving or using machinery. ?Can cause constipation. You may need to take these actions to prevent or treat constipation: ?Drink enough fluid to keep your urine pale yellow. ?Take gxlk-zcr-hevjqec or prescription medicines. ?Eat foods that are [...] department or: Call your local emergency services (600 in the [place] Call a suicide crisis helpline, such as the National Suicide Prevention Lifeline at or 259 in the [place] This is open 24 hours a day in the [place] Text the Crisis Text Line at 068163 (in the [place] Summary Chronic pain is [...] provider. Document Revised: 10/04/2021 Document Reviewed: 11/26/2019 [employer] ([place] Patient Education 2022 [employer]. Follow Up Care 01/29/2023 11:30:42 With:Luís Mar Address: [facility] [address] [phone] Business (1) When:02/01/2023 12:09:50 [facility]10-31-2023 Hospital Discharge instructions Patient Education 01/22/2023 19:37:08 Chronic Back Pain, Snia-ii-Ksbj Chronic Back Pain When back pain lasts [...] pull them backward. Do not sit or paper machine backtender one place for long periods of time. [...] prescription pain medicine, or muscle relaxants. Take vgqq-euv-yfxkxsx and prescription medicines only as told by your doctor. Ask your doctor if the medicine prescribed to you: ?Requires you to avoid driving or using machinery. ?Can cause trouble pooping (constipation). You may need to take these actions to prevent or treat trouble pooping: ?Drink enough fluid to keep your pee (urine) pale yellow. ?Take rsjc-hnk-beekhqb or prescription medicines. ?Eat foods that are [...] provider. Document Revised: 04/20/2020 Document Reviewed: 04/20/2020 [employer] Patient Education 2022 [employer]. Follow Up Care 01/22/2023 18:45:34 With:Peña Salazar Address: [address] [place] [phone]- [phone] Business (1) When:01/25/2023 19:09:36 Comments:Follow-up with your primary care provider in 3 to 5 days. If symptoms worsen, do not improve, or new symptoms arise please report back to emergency department for further evaluation. [facility]10-31-2023 Evaluation + Plan noteExtracted from: Title:ED Note [...] date 01/22/23 19:08:00 EDT, 01/22/23 19:08:00 EDT [facility]10-31-2023 History of Present illness Narrative* Jori Cam MD PhD - 01/22/2023 1:30 PM EDT It was a pleasure to see Ms. Tracy at the [facility] at [facility]. Patient is a 47 year [...] All questions were answered. documented in this [facility] Work Phone: [phone]) 939-654910-24-2023 History of Present illness Narrative* Antonio Husain PA-C - 01/15/2023 1:10 PM EDT Subjective Patient ID: Jerad Tracy is a 47 y.o. female who presents for [facility] (Patient transferring Care form [place], [place], last seen by PCP 3 months ago./Colonoscopy done 04/2022 and bone density done 10/2022 at [facility], mammogram scheduled for 01-17-23 and Pap done over 5 years.) and Weight Loss (Patient would like to discuss weight loss options.). HPI [facility]. Patient has medical history of depression, herniated [...] some time and was previously seen in [place] by neurosurgery. Patient reports inability to get [...] agreement signed [facility] this [facility] Work Phone: [phone] 391-721810-23-2023 Hospital Discharge instructions Patient Education 01/14/2023 15:50:08 [...] pull them backward. Do not sit or paper machine backtender one place for long periods of time. [...] prescription pain medicine, or muscle relaxants. Take qozg-zch-pnqsdwi and prescription medicines onlyas told by your health care provider. Ask your health care provider if the medicine prescribed to you: ?Requires you to avoid driving or using machinery. ?Can cause constipation. You may need to take these actions to prevent or treat constipation: ?Drink enough fluid to keep your urine pale yellow. ?Take ahfo-qij-jlwiooi or prescription medicines. ?Eat foods that are [...] provider. Document Revised: 04/20/2020 Document Reviewed: 04/20/2020 [employer] Patient Education 2022 [employer] 01/14/2023 15:50:08 Back Exercises, Ovbx-ja-Ldmh Back Exercises These exercises help to make [...] provider. Document Revised: 05/24/2021 Document Reviewed: 05/24/2021 [employer] Patient Education 2022 [employer]. Follow Up Care 01/14/2023 14:32:06 With:Domenic Sher Address: [address] [place] [address] [place] [phone] Business (1) When:01/17/2023 15:23:38 [facility]10-23-2023 Evaluation + Plan noteExtracted from: Title:ED Note Author:Eden Salomon ate:01/14/23 Chronic back pain (M54.9: Do rsalgia, unspecified) [facility]10-21-2023 Hospital Discharge instructions Patient Education 01/12/2023 21:42:49 [...] home: Managing pain, stiffness, and swelling Take pnni-yzj-iuzcotd and prescription medicines only as told by [...] each day. Do not sit, drive, or paper machine backtender one place for more than 30 minutes [...] put less stress on your back. Take bvew-rcm-ipvahze and prescription medicines only as told by your health care provider, and apply heat or ice as told. This information is not intended to replace advice given to you by your health care provider. Make sure you discuss any questions you have with your health care provider. Document Revised: 06/02/2021 Document Reviewed: 06/02/2021 [employer] Patient Education 2022 [employer]. 01/12/2023 21:42:49 Contusion Contusion A contusion is [...] sitting or lying down. General instructions Take wdgf-vrg-yfjfimq and prescription medicines only as told by [...] compression, and elevation. You may be given abls-cac-enyeiwj medicines for pain. Contact a health care [...] provider. Document Revised: 01/23/2022 Document Reviewed: 01/04/2022 [employer] Patient Education 2022 [employer]. Follow Up Care 01/12/2023 20:23:40 With:Alondra PHOENIX Address: [address] [place] [address] [address] [place] [address]- Business (1) When:01/15/2023 21:37:43 Comments:Return to the emergency room if your pain gets worse or any new symptoms. [facility]10-21-2023 Evaluation + Plan noteExtracted from: Title:ED Note Author:Annette Watkins, Balbina Celis te:01/12/23 1. Lumbar contusion (S30.0XX A: Contusion [...] XR Spine Lumbosacral 2 or 3 Views [facility]10-19-2023 Evaluation + Plan noteExtracted from: Title:ED Note [...] date 01/10/23 11:37:00 EDT, 01/10/23 11:37:00 EDT [facility]10-19-2023 Evaluation note* Encounter Date Diagnosis Assessment Notes [...] would like to go back to the [facility] and does not like coming all the way out to [place] for the pain management. Dec, Lumbosacral spondylosis (ICD-10 - M47.817) Dec, Chronic pain (ICD-10 - G89.29) [facility] Other 10-19-2023 Hospital Discharge instructions Patient Education [...] home: Managing pain, stiffness, and swelling Take nygq-mgo-isnziuc and prescription medicines only as told by [...] each day. Do not sit, drive, or paper machine backtender one place for more than 30 minutes [...] put less stress on your back. Take gwrz-mkg-zakpzdu and prescription medicines only as told by your health care provider, and apply heat or ice as told. This information is not intended to replace advice given to you by your health care provider. Make sure you discuss any questions you have with your health care provider. Document Revised: 06/02/2021 Document Reviewed: 06/02/2021 [employer] Patient Education 2022 [employer]. Follow Up Care 01/10/2023 10:31:11 With:Joe Meza Address: [address] [place], [place] [phone] Business (1) When:01/13/2023 11:35:28 Comments:Call the office of [...] breath, or any new or worsening symptoms. [facility]10-15-2023 Hospital Discharge instructions Additional Instructions Take medication as prescribed Follow-up with the doctor as scheduled this week Return to the ER for worsening pain fever weakness in her legs loss of bladder bowel control or any other concernsGrand [facility] Work Phone: [phone] Hospital Discharge instructions Additional Instructions Keep follow up appointment with [facility] neurosurgery this week. She is uncertain of the name of the provider she is seeing. She was referred to the [facility] last week by Dr. Meza. [facility] Work Phone: [phone]) 271-634110-14-2023 Evaluation + Plan noteExtracted from: Title:ED Note [...] XR Hip 2-3 Views Left + Pelvis [facility]10-14-2023 Hospital Discharge instructions Patient Education 01/05/2023 00:38:20 [...] Follow these instructions at home: Medicines Take mttz-unk-hzturud and prescription medicines only as told by your health care provider. Ask your health care provider if the medicine prescribed to you: ?Requires you to avoid driving or using heavy machinery. ?Can cause constipation. You may need to take these actions to prevent or treat constipation: ?Drink enough fluid to keep your urine pale yellow. ?Take bbrj-luo-dyeiomr or prescription medicines. ?Eat foods that are [...] provider. Document Revised: 06/29/2020 Document Reviewed: 06/29/2020 [employer] Patient Education 2022 [employer]. 01/05/2023 00:38:20 Contusion Contusion A contusion is [...] sitting or lying down. General instructions Take tytq-fme-ioobyry and prescription medicines only as told by [...] compression, and elevation. You may be given gwwk-zqu-sdvmohz medicines for pain. Contact a health care [...] provider. Document Revised: 01/23/2022 Document Reviewed: 01/04/2022 [employer] Patient Education 2022 [employer]. Follow Up Care 01/04/2023 21:05:36 With:Joe Derrick Address: [address] [place] [phone]- [facility] (1) When:01/08/2023 Comments:Return to the emergency room if your pain gets worse, bowel or bladder incontinence, numbness/tingling in the saddle/groin area or any new symptoms. [facility]10-11-2023 Hospital Discharge instructions Patient Education 01/02/2023 16:56:30 Chronic Back Pain, Xayj-qw-Pkns Chronic Back Pain When back pain lasts [...] pull them backward. Do not sit or paper machine backtender one place for long periods of time. [...] prescription pain medicine, or muscle relaxants. Take dcln-rgt-ybdpobh and prescription medicines only as told by your doctor. Ask your doctor if the medicine prescribed to you: ?Requires you to avoid driving or using machinery. ?Can cause trouble pooping (constipation). You may need to take these actions to prevent or treat trouble pooping: ?Drink enough fluid to keep your pee (urine) pale yellow. ?Take zfmn-eiu-kjqfsfn or prescription medicines. ?Eat foods that are [...] provider. Document Revised: 04/20/2020 Document Reviewed: 04/20/2020 [employer] Patient Education 2022 [employer]. Follow Up Care 01/02/2023 15:59:31 With:Joe Meza Address: [address] [place], [place] [phone] Business (1) When:01/05/2023 16:20:40 [facility]10-11-2023 Evaluation + Plan noteExtracted from: Title:ED Note [...] Refills(s) 0, Pharmacy: [facility]/pharmacy #[id number], 160, cm, 01/02/23 16:09:00 EDT, Height/Length Dosing, 114.2, kg, 01/02/23 16:09:00 EDT, Weight Dosing [facility]10-05-2023 Evaluation note* Encounter Date Diagnosis Assessment Notes [...] Lumbar degenerative disc disease (ICD-10 - M51.36) [facility] Other 10-04-2023 Hospital Discharge instructions Patient Education [...] pull them backward. Do not sit or paper machine backtender one place for long periods of time. [...] prescription pain medicine, or muscle relaxants. Take nvii-yqo-bmhveyf and prescription medicines onlyas told by your health care provider. Ask your health care provider if the medicine prescribed to you: ?Requires you to avoid driving or using machinery. ?Can cause constipation. You may need to take these actions to prevent or treat constipation: ?Drink enough fluid to keep your urine pale yellow. ?Take dnvt-nlo-nbciurz or prescription medicines. ?Eat foods that are [...] provider. Document Revised: 04/20/2020 Document Reviewed: 04/20/2020 [employer] Patient Education 2022 [employer] Follow Up Care 12/26/2022 16:21:06 With:Bridger Del Rosario Address: [address] [place] [address] [place] [id number] Business (1) When:12/29/2022 16:53:27 [facility]10-04-2023 Evaluation + Plan noteExtracted from: Title:ED Note Author:Robert Taylor PA-C te:12/26/22 Chronic back pain (M54.9: Do rsalgia, unspecified) Ordered: acetaminophen-oxycodone, 1 tab(s), Oral, q6hr as needed for pain for 3 day(s), 8 tab(s), Refill(s) 0, [facility]/pharmacy #[id number], 160, cm, 12/26/22 16:32:00 EDT, Height/Length [...] date 12/26/22 16:52:00 EDT, 12/26/22 16:52:00 EDT [facility]10-04-2023 Evaluation note* Encounter Date Diagnosis Assessment Notes [...] pain (ICD-10 - G89.29) No follow up. [facility] Other 10-01-2023 Hospital Discharge instructions Patient Education [...] home: Managing pain, stiffness, and swelling Take hdoq-jjp-pyxfwyp and prescription medicines only as told by [...] each day. Do not sit, drive, or paper machine backtender one place for more than 30 minutes [...] put less stress on your back. Take wkla-pqq-hnzadfz and prescription medicines only as told by your health care provider, and apply heat or ice as told. This information is not intended to replace advice given to you by your health care provider. Make sure you discuss any questions you have with your health care provider. Document Revised: 06/02/2021 Document Reviewed: 06/02/2021 [employer] Patient Education 2022 [employer]. Follow Up Care 12/23/2022 16:55:38 With:Keep upcoming appointment with your spinal surgeon Address:Unknown When:12/26/2022 18:30:08 Comments:Seek immediate medical attention if you develop: increasing pain, numbness, tingling, weakness, loss of motion in your arms or legs, loss of control of your urine or stool, fever, abdominal pain, chest pain, shortness of breath, or any new or worsening symptoms. [facility]10-01-2023 Evaluation + Plan noteExtracted from: Title:ED Note [...] XR Spine Lumbosacral 2 or 3 Views [facility]09-26-2023 Hospital Discharge instructions Patient Education 12/18/2022 13:31:19 [...] home: Managing pain, stiffness, and swelling Take gliz-llg-toksctd and prescription medicines only as told by [...] each day. Do not sit, drive, or paper machine backtender one place for more than 30 minutes [...] put less stress on your back. Take vyzs-vdy-imwnbhx and prescription medicines only as told by your health care provider, and apply heat or ice as told. This information is not intended to replace advice given to you by your health care provider. Make sure you discuss any questions you have with your health care provider. Document Revised: 06/02/2021 Document Reviewed: 06/02/2021 [employer] Patient Education 2022 [employer]. Follow Up Care 12/18/2022 12:20:19 With:Joe Meza Address: [address] [place] [phone] [facility] (1) When:12/21/2022 12:52:24 [facility]09-21-2023 Hospital Discharge instructions Patient Education 12/13/2022 19:09:28 [...] pull them backward. Do not sit or paper machine backtender one place for long periods of time. [...] prescription pain medicine, or muscle relaxants. Take ywmm-sxl-xkluvxy and prescription medicines onlyas told by your health care provider. Ask your health care provider if the medicine prescribed to you: ?Requires you to avoid driving or using machinery. ?Can cause constipation. You may need to take these actions to prevent or treat constipation: ?Drink enough fluid to keep your urine pale yellow. ?Take jorq-okj-nnjdjsb or prescription medicines. ?Eat foods that are [...] provider. Document Revised: 04/20/2020 Document Reviewed: 04/20/2020 [employer] Patient Education 2022 [employer]. Follow Up Care 12/13/2022 17:19:50 With:Joe Meza Address: [address] [place] [phone]- Business (1) When:12/16/2022 18:50:16 [facility]09-21-2023 Hospital Discharge instructions Patient Education 12/12/2022 23:52:47 [...] hard liquor (44 mL). General instructions Take ssyq-pml-atgpbui and prescription medicines only as told by [...] provider. Document Revised: 11/20/2021 Document Reviewed: 11/20/2021 [employer] Patient Education 2022 [employer]. 12/12/2022 23:52:47 Chronic Back Pain Chronic Back [...] pull them backward. Do not sit or paper machine backtender one place for long periods of time. [...] prescription pain medicine, or muscle relaxants. Take mkcw-pfa-etgjxma and prescription medicines onlyas told by your health care provider. Ask your health care provider if the medicine prescribed to you: ?Requires you to avoid driving or using machinery. ?Can cause constipation. You may need to take these actions to prevent or treat constipation: ?Drink enough fluid to keep your urine pale yellow. ?Take rjlo-ebu-coxgvlx or prescription medicines. ?Eat foods that are [...] provider. Document Revised: 04/20/2020 Document Reviewed: 04/20/2020 [employer] Patient Education 2022 [employer]. Follow Up Care 12/12/2022 20:51:35 With:XXXX NONE Address: [place] When:12/15/2022 Comments:[facility] [...] you develop any new or worsening symptoms. [facility]09-20-2023 Evaluation + Plan noteExtracted from: Title:ED Note [...] Lumbar w/o Contrast XR Chest Single View [facility]09-20-2023 [facility] Discharge instructions Patient Education 12/07/2022 18:55:05 Chronic Back Pain, Gdho-js-Mqtt Chronic Back Pain When back pain lasts [...] pull them backward. Do not sit or paper machine backtender one place for long periods of time. [...] prescription pain medicine, or muscle relaxants. Take dukn-qll-afwwxmz and prescription medicines only as told by your doctor. Ask your doctor if the medicine prescribed to you: ?Requires you to avoid driving or using machinery. ?Can cause trouble pooping (constipation). You may need to take these actions to prevent or treat trouble pooping: ?Drink enough fluid to keep your pee (urine) pale yellow. ?Take hvwf-ffp-kuodssp or prescription medicines. ?Eat foods that are [...] provider. Document Revised: 04/20/2020 Document Reviewed: 04/20/2020 [employer] Patient Education 2022 [employer] 12/07/2022 18:55:05 Acute Back Pain, Adult [...] home: Managing pain, stiffness, and swelling Take sdiq-nwf-cdptegm and prescription medicines only as told by [...] each day. Do not sit, drive, or paper machine backtender one place for more than 30 minutes [...] put less stress on your back. Take pmey-ezy-abihwmo and prescription medicines only as told by your health care provider, and apply heat or ice as told. This information is not intended to replace advice given to you by your health care provider. Make sure you discuss any questions you have with your health care provider. Document Revised: 06/02/2021 Document Reviewed: 06/02/2021 [employer] Patient Education 2022 [employer]. Follow Up Care 12/07/2022 16:26:15 With:Peña Salazar Address: [address] [place] [phone] Business (1) When:12/10/2022 18:30:41 Comments:Follow-up with your primary care provider in 3 to 5 days. If symptoms worsen, do not improve, or new symptoms arise please report back to emergency department for further evaluation. [facility]09-12-2023 Emergency department Note* Zoey Dan RN - 12/04/2022 8:25 PM EDT Patient discharged to home, alert and oriented, skin warm, dry and pink. Denies needs and or questions. Will follow-up as directed, patient encouraged to return for worsening or new symptoms or otherconcerns. [id number] Emergency department Note* Zoey Dan RN - [...] unlabored. Skin warm and dry. * Allyson Nicole, - 12/04/2022 7:58 PM EDT Chief Complaint: Lower lumbar back pain that radiates to the right leg history of lumbar disc disease HPI: Jerad Tracy is a 47 year old female who presents with a complaint that she does have a known history of lumbar disc disease. She drove over the weekend from [facility] where she lives and exacerbated her back [...] 75 mcg, 75 mcg, Subcutaneous, Now, Allyson Nicole,DO ondansetron (ZOFRAN ODT) RAPID DISSOLVING tablet 4 mg, 4 mg, Oral, Q6H PRN, Allyson Nicole, DO diazePAM (VALIUM) tablet 5 mg, 5 mg, Oral, Now, Allyson Nicole DO No current outpatient medications on file. [...] Management: Outpatient management with her neurosurgeon in [place] FINAL IMPRESSION: 1 --acute on chronic lower lumbar back pain with history of lumbar disc disease 2 -- 3 -- I have reviewed the past medical, family, and social history sections including the medications andallergies listed in the above medical record. Electronically signed by: Allyson Nicole DO, 12/04/2022 7:58 PM * Zoey Dan RN - 12/04/2022 7:54 PM EDT Provider at bedside. * Radha Spivey RN - 12/04/2022 7:08 PM EDT Patient arrives ambulatory to triage with c/o herniated disc in her back, states this is a chronic issue but the pain has been flaring up worse. documented in this encounterMer[facility] [id number] Emergency department Note* Zoey Dan RN - 12/04/2022 8:08 PM EDT Patient medicated per MAY. Respirations even and unlabored. Skin warm and dry. [facility] [id number] Physician Emergency department Note* Allyson Nicole DO - 12/04/2022 7:58 PM EDT Chief Complaint: Lower lumbar back pain that radiates to the right leg history of lumbar disc disease HPI: Jerad Tracy is a 47 year old female who presents with a complaint that she does have a known history of lumbar disc disease. She drove over the weekend from [facility] where she lives and exacerbated her back [...] 75 mcg, 75 mcg, Subcutaneous, Dinorah, Allyson Nicole DO ondansetron (ZOFRAN ODT) RAPID DISSOLVING tablet 4 mg, 4 mg, Oral, Q6H PRN, Allyson Nicole DO diazePAM (VALIUM) tablet 5 mg, 5 mg, Oral, Now, Allyson Nicole DO No current outpatient medications on file. [...] Management: Outpatient management with her neurosurgeon in [place] FINAL IMPRESSION: 1 --acute on chronic lower lumbar back pain with history of lumbar disc disease 2 -- 3 -- I have reviewed the past medical, family, and social history sections including the medications andallergies listed in the above medical record. Electronically signed by: Allyson Nicole DO, 12/04/2022 7:58 PM [facility] [id number] Emergency department Note* Zoey Dan RN - 12/04/2022 7:54 PM EDT Provider at bedside. [facility] [id number] Emergency department Note* Radha Spivey RN - 12/04/2022 7:08 PM EDT Patient arrives ambulatory to triage with c/o herniated disc in her back, states this is a chronic issue but the pain has been flaring up worse. [facility] [id number] note* Encounter Date Diagnosis [...] (ICD-10 - G89.29) Follow up after procedure. [facility] Other 08-15-2023 Evaluation note* Encounter Date Diagnosis [...] SI (sacroiliac) joint inflammation (ICD-10 - M46.1) [facility] Other 07-05-2023 Evaluation note* Encounter Date Diagnosis [...] procedure. Sep, Other UDS performe d through [facility] lab today, will await confirmatory results. [facility] Other [id number] Procedure [facility]06-13-2023 Hospital Discharge instructions Patient Education 09/04/2022 20:33:40 [...] pull them backward. Do not sit or paper machine backtender one place for long periods of time. [...] prescription pain medicine, or muscle relaxants. Take tsnl-ied-iaqckte and prescription medicines onlyas told by your health care provider. Ask your health care provider if the medicine prescribed to you: ?Requires you to avoid driving or using machinery. ?Can cause constipation. You may need to take these actions to prevent or treat constipation: ?Drink enough fluid to keep your urine pale yellow. ?Take ldgo-muh-tusomqw or prescription medicines. ?Eat foods that are [...] provider. Document Revised: 04/20/2020 Document Reviewed: 04/20/2020 [employer] Patient Education 2022 [employer]. Follow Up Care 09/04/2022 19:08:34 With:Pain Clinic: [facility] [phone] Address:Unknown When:09/07/2022 20:33:32 With:XXXX NONE Address: [place] When:Within 3 Day(s) [facility]06-13-2023 Evaluation + Plan noteExtracted from: Title:ED Note Author:Sam Dowd PA-C e:09/04/22 Chronic back pain (M54.9: Do rsalgia, unspecified) Other chronic pain (G89.29: Other chronic pain) Orders: ketorolac, 60 mg = 2 mL, Injection, IntraMuscular, Once, Stop date 09/04/22 20:29:00 EDT, STAT, Start date 09/04/22 20:29:00 EDT, 09/04/22 20:29:00 EDT [facility]06-13-2023 Evaluation note* Encounter Date Diagnosis Assessment Notes [...] she is waiting to be scheduled at [facility] for this. Prior to examining the [...] negative findings were considered in medical decision-making. [facility] Other [id number] Evaluation note* Encounter Date Diagnosis Assessment Notes [...] 4-6 pounds of pressure on the spine. [facility] Other 01-06-2022 Evaluation note* Encounter Date Diagnosis [...] Above note written by Ina Regalado LPN, Medical Billing Service. Edited and approved by Dr. Avery Goodman [...] negative findings were considered in medical decision-making. [facility] Other 11-24-2021 Evaluation note* Encounter Date Diagnosis [...] and denies any concerns at this time. [facility] Other Evaluation + Plan note No data available for this section [facility] Plan noteExtracted from: Title:ED Note Author:Elisa [...] date 02/07/23 19:57:00 EST, 02/07/23 19:57:00 EST [facility] Future Appointments Appointment Date:06/13/2023 07:40:00 AM Scheduled Provider:Cheyanne Rincon Location:[facility] Appointment Type:FM New [facility] - [facility] Future Appointments Appointment Date:08/14/2023 03:15:00 PM Scheduled Provider:Domenic Sher DO Location:[facility] Appointment Type:Pain Management - Follow Up (FT) Future Scheduled Tests Laboratory* TSH With T4fr Reflex 07/17/23 * Urinalysis with Micro 07/17/23 * Lipid Panel 07/17/23 * Drug Screen Urine 07/17/23 Radiology* MA Mamm Screen w/CAD if perf and 3D Kenan 07/17/23 [facility] Evaluation + Plan note Future Appointments Appointment Date:11/13/2023 08:00:00 AM Scheduled Provider:Domenic Sher DO Location:[facility] Appointment Type:Pain Management - Follow Up (FT) Future Scheduled Tests Laboratory* TSH With T4fr Reflex 07/17/23 * Urinalysis with Micro 07/17/23 * Lipid Panel 07/17/23 * Drug Screen Urine 07/17/23 Radiology* MA Mamm Screen w/CAD if perf and 3D Kenan 07/17/23 [facility] evaluation noteNo [email or web address] Other Evaluation noteNo assessment information available [facility] Work Phone: Evaluation note* Diagnosis Onset Date Resolution Status Rectal bleeding acute [facility] Work Phone: Evaluation note* Diagnosis Lumbar disc disease- Primary Other and unspecified disc disorder of lumbar region [facility] Diagnosis Encounter for screening mammogram for breast cancer- Primary Recurrent major depressive disorder, in full remission (CMS/HCC) Herniation of intervertebral disc between L4 and L5 Lumbar radiculopathy Thoracic or lumbosacral neuritis or radiculitis, unspecified Chronic hepatitis C without hepatic coma (CMS/HCC) Chronic, continuous use of opioids Controlled substance agreement signed documented in this encounter [facility] Work Phone: Evaluation note* Diagnosis Chronic low back pain, unspecified back pain laterality, unspecified whether sciatica present- Primary documented in this encounter [facility] Work Phone: Evaluation note* Diagnosis Chronic hepatitis C without hepatic coma (CMS/HCC) documented in this encounter [facility] Work Phone: Evaluation note* Diagnosis Chronic hepatitis C without hepatic coma (CMS/HCC) documented in this encounter [facility] Work Phone: Evaluation note* Diagnosis Continuous opioid dependence (CMS/HCC)- Primary Opioid type dependence, continuous abuse Chronic hepatitis C without hepatic coma (CMS/HCC) documented in this encounter [facility] Work Phone: Evaluation note* Diagnosis Chronic right-sided low back pain with right-sided sciatica- Primary [facility]* Diagnosis Onset Date Resolution Status Arthritis of carpometacarpal (CMC) joint of right thum b acute Sprain of right thumb acute [facility] Work Phone: Evaluation note* Diagnosis CMC arthritis- Primary Right wrist pain Pain in joint, forearm documented in this encounter [facility] Work Phone: Evaluation note* Diagnosis Chronic back pain greater than 3 months duration- Primary Neuropathic pain documented in this encounter [facility] Work Phone: Evaluation note* Diagnosis Acute bilateral low back pain, unspecified whether sciatica present- Primary [facility] Diagnosis Chronic back pain, unspecified back location, unspecified back pain laterality- Primary documented in this encounter [facility] Work Phone: Evaluation note* Diagnosis Pain disorder associated with psychological and physical factors documented in this encounter [facility] Work Phone: Evaluation note* Diagnosis Low back pain without sciatica, unspecified back pain laterality, unspecified chronicity- Primary [facility]* Diagnosis Chronic back pain greater than 3 months duration- Primary Chronic back pain greater than 3 months duration Neuropathic pain Continuous opioid dependence (Multi) Opioid type dependence, continuous abuse Neuropathic pain documented in this encounter [facility] Work Phone: Evaluation note* Diagnosis Chronic back pain greater than 3 months duration- Primary Neuropathic pain documented in this encounter [facility] Work Phone: Evaluation note* Diagnosis Strain of lumbar region, initial encounter- Primary documented in this encounter [employer] [facility]* Diagnosis Infection of superficial incisional surgical site after procedure, initial encounter- Primary documented in this encounter [facility]* Diagnosis Dehiscence of wound of skin, initial encounter- Primary Low back pain, unspecified back pain laterality, unspecified chronicity, unspecified whether sciatica present [facility] general Narrative - Reported* Type Description Date [...] & adneoids Surgical History TANIKA, RSO 2010 [facility] Other History general Narrative - Reported* Type [...] RSO 2010 Hospitalization History see surg Hx [facility] Other Hospital Discharge instructions No data available for this section [facility] Additional Instructions Return for new or worsening symptoms [facility] Discharge instructions Additional Instructions Take Bentyl and simethicone as prescribed for mild to moderate pain. Take Percocet as needed for severe pain. Increase your intake of fluids. Follow-up with a bell cleaner listed below for ongoing evaluation possible colonoscopy regarding your lower GI bleeding. Return to emergency department if you develop any fevers chills or intractable nausea vomiting, severe worsening bleeding, shortness of breath fatigue with bleeding. Follow-up with the PCP for reevaluation in 3 to 5 days days.[facility] Work Phone: Hospital Discharge instructions Additional Instructions Take the Bentyl as needed for abdominal cramping pain, use Zofran for nausea, start taking Carafate as well Call the GI doctor to see if he can be seen sooner Return for worsening abdominal pain or bleeding, fevers, continued vomiting, lightheadednessGrand [facility] Work Phone: Hospital Discharge instructions Additional Instructions [facility] Discharge instructions Additional [...] your legs high fever or any other concernsProm[facility]ica [facility] Work Phone: Hospital Discharge instructions Additional [...] bowel control high fever or any other concernsProm[facility]ica [facility] Work Phone: Hospital Discharge instructions Additional Instructions Take 1 oxycodone every 6 hours for severe pain Continue your other medications Follow-up with the neurosurgeon and physical therapy Return to the ER for more severe pain high fever weakness in your legs loss of bladder bowel control or any other concernsProm[facility]ica [facility] Work Phone: Hospital Discharge instructions Additional Instructions Take the oxycodone as prescribed to completed Follow-up with your doctors Return to the ER for worsening pain high fever weakness in your legs loss of bladder bowel control or any other concernsProm[facility] Work Phone: Hospital Discharge instructions Additional Instructions Follow-up pain management as discussed Take Relafen if needed for pain Gentle range of motion Return here if any problems persist or worsen including loss of bowel bladder control, fevers, chills, numbness, tingling or other concernsPromedica [facility] Work Phone: Hospital Discharge instructions Additional [...] bowel control high fever or any other concernsProm[facility] Work Phone: Hospital Discharge instructions Additional [...] you pain medicine for the next several days.[facility] Work Phone: Hospital Discharge instructions Additional Instructions Take 1 oxycodone every 6 hours for severe pain May apply ice warm moist heat to sore areas Gentle stretching Follow-up with your family doctorProm[facility] Work Phone: Hospital Discharge instructions Additional Instructions Avoid heavy lifting Take your antibiotic as instructed until gone for your UTI Is important that you call Dr. Meza and Dr. Rivero's office both tomorrow to let them know of your symptoms and discuss treatment plan Return here if any problems persist or worsen*[facility] Work Phone: Hospital Discharge instructions Additional Instructions Take the dexamethasone once a day for 7 days Continue your other medication May use ice warm moist heat Follow-up with pain management and neurosurgery Return to the ER for worsening symptoms fever more severe pain or any other concernsProm[facility]ica [facility] Work Phone: Hospital Discharge instructions Additional Instructions On oxycodone every 6 hours as needed for pain Ice warm moist heat Continue your other medications Follow-up with your doctors as scheduled Return to the ER worsening pain high fever weakness in the legs loss of bladder bowel control or any other concernsProm[facility]ica [facility] Work Phone: Hospital Discharge instructions Additional Instructions Continue cyclobenzaprine 3 times a day as needed Oxycodone every 6 hours as needed Follow-up with the specialist as scheduled Return to the ER for leg weakness loss of bladder bowel control high fever or any other concernsProm[facility]ica [facility] Work Phone: Hospital Discharge instructions Additional Instructions 1. Apply moist heat to affected area 2. Avoid lifting, pushing or pulling more than 10 pounds 3. Keep appointment with neurosurgery/pain management as scheduled in March 28. May apply OTC Lidocaine patches to affected area to help with painPromedica Def[facility] Work Phone: Hospital Discharge instructions Additional Instructions Avoid lifting, pushing, pulling continue to try to reach neurosurgeonPromedica [facility] Work Phone: Hospital Discharge instructions Additional Instructions Continue your other medication Follow-up with your providers Return to the ER for worsening back pain high fever weakness in your legs loss of bladder bowel control or any other concernsProm[facility]ica [facility] Work Phone: Hospital Discharge instructions Additional Instructions Follow-up with Ortho as scheduled Take Percocet as needed for pain, do not drive, drink, operate heavy machinery while takingPromedica Defiance Regional Hospital Work Phone: Hospital Discharge instructions* Attachments The following attachments cannot be sent through Care Everywhere. * Managing acute pain at home (Serbian) [facility] Work Phone: Hospital Discharge instructions Additional Instructions Continue your regular medication Follow-up with your family doctor Return to the ER for worsening pain weakness in your legs loss of bladder bowel control high fever or any other concernsProm[facility]ica [facility] Work Phone: Hospital Discharge instructions Additional Instructions Continue Flexeril for muscle spasms at home Continue oxycodone as prescribed at home Follow-up with pain management Rest Apply ice Return here if any problems persist or worsenPromedica Defiance [facility] Hospital Work Phone: Hospital Discharge instructions* Attachments The following attachments cannot be sent through Care Everywhere. * Back: Strain (Serbian) [facility] Additional Instructions Call Dr. Adams's office your neurosurgeon tomorrow for follow-up as soon as possible.[facility] Work Phone: Hospital Discharge instructions Additional Instructions If your symptoms return/worsen or you develop any further concerns or symptoms please see your doctor or return to the emergency department immediately. Please be sure to follow-up with your surgeon in [facility] Work Phone: Hospital Discharge instructions Additional Instructions Please take antibiotics as prescribed and follow-up with your primary care provider. Please keep the area on the back covered with Neosporin or bacitracin and a bandage. Please change this dressing twice a day.[facility] Work Phone: Hospital Discharge instructions Additional Instructions Follow-up with your surgeon as planned tomorrow at 930 Return here if you develop any fevers, chills, pain or any otherGrand [facility] Work Phone: Progress note No data available for this section [facility] Progress note Author Flex Veliz [facility] Note Date/Time November 27, 2023 1:43am [facility] [address] [place] [id number]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 CONTROLLERS-BC Emergency Provider Active Team Status: Inactive Member Role Status Dates PHYSICIAN NO FAMILY Primary Care Provider Active Glen Garza MD Attending Provider Active Team Status: Active Member Role Status Dates Felice Veliz APRN MACHINE SOLE LEVELER-C Primary Care Provider Act alexandre Team Status: Inactive Member Role Status Dates Felice Veliz APRN MACHINE SOLE LEVELER-C Primary Care Provider Act ELZBIETA Pimentel Attending Provider Active Team Status: Inactive Member Role Status Dates Felice Veliz APRN MACHINE SOLE LEVELER-C Primary Care Provider Act alexandre Mary Beth Sloan INSTRUCTOR PROGRAMMABLE CONTROLLERS-BC Emergency Provider Active Team Status: Inactive Member Role Status Dates Felice Veliz APRN MACHINE SOLE LEVELER-C Primary Care Provider Act alexandre Joshua Carranzamond , OTHER SALES SUPPORT WORKER Emergency Provider Active Team Status: Active Member Role Status Dates NON STAFF Primary Care Provider Active Team Status: Inactive Member Role Status Dates NON STAFF Primary Care Provider Active Vlad Bhandari DO Emergency Provider Active Team Status: Inactive Member Role Status Dates NON STAFF Primary Care Provider Active Kati Huerta APRN Emergency Provider Active Manufacturing Electrician Relationship Specialty Start Date End Date Antonio Husain PA-C [address] [facility] [place] [address] PCP - General Internal Medicine 01/08/23 Manufacturing Electrician Relationship Specialty Start Date End Date Antonio Husain PA-C [address] [facility] [place] [address] PCP - General Internal Medicine 01/08/23 Team Status: Inactive Member Role Status Dates PHYSICIAN NO FAMILY Primary Care Provider Active Kati Huerta APRN Emergency Provider Active Manufacturing Electrician Relationship Specialty Start Date End Date Antonio Husain PA-C [address] [facility] [place] [address] PCP - General Internal Medicine 01/08/23 Manufacturing Electrician Relationship Specialty Start Date End Date Antonio Husain PA-C [address] [facility] [place] [address] PCP - General Internal Medicine 01/08/23 Manufacturing Electrician Relationship Specialty Start Date End Date Antonio Husain PA-C [address] [facility] [place] [address] PCP - General Internal Medicine 01/08/23 Team [...] End: February 08, 2023 Mary Beth Sloan , INSTRUCTOR PROGRAMMABLE CONTROLLERS-BC Emergency Provider Active Start: February 08, 2023 [...] 2023 End: March 09, 2023 Mary Beth E Nathalia , INSTRUCTOR PROGRAMMABLE CONTROLLERS-BC Emergency Provider Active Start: March 09, 2023 [...] April 12, 2023 End: April 12, 2023 Manufacturing Electrician Relationship Specialty Start Date End Date [place] [address] [phone] (Work) PCP - General 12/04/22 Team Status: [...] May 19, 2023 End: May 19, 2023 Manufacturing Electrician Relationship Specialty Start Date End Date Antonio Husain PA-C [address] [facility] [place] [address] PCP - General Internal Medicine 01/08/23 Manufacturing Electrician Relationship Specialty Start Date End Date [place] [address] [phone] (Work) PCP - General 12/04/22 Manufacturing Electrician Relationship Specialty Start Date End Date Slime Sherwood DO [address] [facility] [place] [address] PCP - General Internal Medicine 06/15/23 Team [...] 26, 2023 End: June 26, 2023 Vlad Bhandari DO Emergency Provider Active St art: June 26, 2023 End: June 26, 2023 Team Status: Inactive Member Role Status Dates Services Family Health Primary Care Provider Active Start: July 04, 2023 End: July 04, 2023 Mary Beth Sloan [facility] Emergency Provider Active Start: July 04, 2023 End: July 04, 2023 Manufacturing Electrician Relationship Specialty Start Date End Date Slime Sherwood DO [address] [facility] [place] [address] PCP - General Internal Medicine 06/15/23 Manufacturing Electrician Relationship Specialty Start Date End Date Jess Bermeo MD [place], [place] [id number] [phone] (Work) PCP - General 12/04/22 Manufacturing Electrician Relationship Specialty Start Date End Date Generic Provider, [place] [id number] PCP - General Strip Deburrer 08/02/23 Manufacturing Electrician Relationship Specialty Start Date End Date Generic Provider, [place] [id number] PCP - General Strip Deburrer 08/02/23 Team Status: Inactive Member Role Status Dates Services Family Health Primary Care Provider Active Start: September 08, 2023 End: September 08, 2023 Deb Carmichael APRN Emergency Provider Active Start: September 08, 2023 End: September 08, 2023 Team Status: Inactive Member Role Status Dates Services Family Health Primary Care Provider Active Start: October 05, 2023 End: October 05, 2023 Abby Jensen MD Emergency Provider Active Start: October 05, 2023 End: October 05, 2023 Team Status: Inactive Member Role Status Dates Services Family Health Primary Care Provider Active Start: October 19, 2023 End: October 19, 2023 Peter Veliz MD Emergency Provider Active St art: October 19, 2023 End: October 19, 2023 Team Status: Inactive Member Role Status Dates Services Family [facility] Primary Care Provider Active Start: November 10, 2023 End: November 10, 2023 Dalton Ceja DO Emergency Provider Active Sta rt: November 10, 2023 End: November 10, 2023 Team Status: Inactive Member Role Status Dates Services Family Health Primary Care Provider Active Start: November 25, 2023 End: November 25, 2023 José Miguel Mcnamara DO Emergency Provider Active Start: November 25, 2023 End: November 25, 2023 Team Status: Active Member Role Status Dates No PCP Primary Care Provider Active Team Status: Inactive Member Role Status Dates No PCP Primary Care Provider Active Start: November 26, 2023 End: November 27, 2023 Flex Veliz MD Emergency Provider Active Sta rt: November 26, 2023 End: November 27, 2023 Team Status: Inactive Member Role Status Dates Services Family Health Primary Care Provider Active Start: December 01, 2023 End: December 02, 2023 Vlad Bhandari DO Emergency Provider Active St art: December 01, 2023 End: December 02, 2023 Dagoberto Duran DO RES Active Start: December 01, 2023 End: December 02, 2023 Manufacturing Electrician Relationship Specialty Start Date End Date Jess Bermeo MD [place], [place] [id number] [phone] (Work) PCP - General 12/04/22 Team Status: Inactive Member Role Status Dates Services Family [facility] Primary Care Provider Active Start: December 12, 2023 End: December 12, 2023 Deb Carmichael APRN Emergency Provider Active Start: December 12, 2023 End: December 12, 2023 Goals (unrecognized section and content) Goals may be documented in a n alternate section INFORMATION SOURCE (unrecogn ized section and content) DATE CREATED AUTHOR 01/15/2022 [facility] DATE CREATED AUTHOR AUTHOR'S ORGANIZ ATION 11/08/2022 [facility] DATE CREATED AUTHOR AUTHOR'S ORGANIZ ATION 07/09/2023 [facility] DATE CREATED AUTHOR AUTHOR'S ORGANIZ ATION 11/02/2023 [facility] DATE CREATED AUTHOR AUTHOR'S ORGANIZ ATION 11/04/2023 [facility] DATE CREATED AUTHOR AUTHOR'S ORGANIZ ATION 11/28/2023 [facility] DATE CREATED AUTHOR AUTHOR'S ORGANIZ ATION 12/01/2023 [facility] DATE CREATED AUTHOR AUTHOR'S ORGANIZ ATION 12/02/2023 [facility] DATE CREATED AUTHOR AUTHOR'S ORGANIZ ATION 12/07/2023 [facility] DATE CREATED AUTHOR AUTHOR'S ORGANIZ ATION 12/08/2023 [facility] DATE CREATED AUTHOR AUTHOR'S ORGANIZ ATION 12/14/2023 [facility] DATE CREATED AUTHOR AUTHOR'S ORGANIZ ATION 12/16/2023 [facility] DATE CREATED AUTHOR AUTHOR'S ORGANIZ ATION 12/16/2023 [facility] DATE CREATED AUTHOR AUTHOR'S ORGANIZ ATION 12/17/2023 [facility] DATE CREATED AUTHOR AUTHOR'S ORGANIZ ATION 12/17/2023 [facility] DATE CREATED AUTHOR AUTHOR'S ORGANIZ ATION 12/19/2023 [facility] DATE CREATED AUTHOR AUTHOR'S ORGANIZ ATION 12/20/2023 [facility] Scheduled Active and Recently Administ ered Medications [...] 1810 1807 (Given - Provid er: Munira Perez, DARSHAN) Scheduled Medication Order 06/13/2023 06/14/2023 06/15/2023 ketorolac [...] Sat08/09/23 at 2225, Administer over 12 Hours 222 (Patch Applied - Provider: Yarelis Finley RN) [...] on Sat10/30/23 at 2104, Until Sat10/30/23 at 2109, Other 2109 (Given - Provider: Houston Dumont) sodium chloride flush 0.9 % injection 10 mL 10 mL, IntraVENous, PRN, Starting on Sat10/30/23 at 2104, Until Discontinued, Line Care 2109 (Given - Provider: Houston Dumont) Scheduled Medication Order 12/02/2023 12/03/2023 12/04/2023 iohexoL (OMNIPAQUE) 350 mg iodine/mL intravenous solution 100 mL (COMPLETED) 100 mL, IV Push, TO CT SCAN-ONCE, 1 dose, On Sat12/04/23 at 2250 2243 (Given - Provid er: Toney Valerio, RT(R)) methocarbamoL (ROBAXIN) tablet 1,000 mg (COMPLETED) 1,000 mg, Oral, NOW, 1 dose, On Sat12/04/23 at 2310 2304 (Given - Provid er: Ilya Carrillo RN) morphine injection syringe 4 mg (COMPLETED) 4 mg, IV Push, NOW, 1 dose, On Sat12/04/23 at 2235 2236 (Given - Provid er: Ilya Carrillo RN) saline flush (COMPLETED) IV Push, TO CT SCAN-ONCE, 1 dose, On Sat12/04/23 at 2250 2244 (Given - Provid er: Toney Valerio, RT(R)) Ordered Prescriptions (unrec ognized section and content) [...] BE BASED ON THE PRIMARY CLINICAL RECORDS. [facility] [employer] provides no warranty or guarantee of the accuracy or completeness of information in this document.
--- NOTE | 2023-12-21 17:06 | ECG_ITS ---
[facility] Test Date: 2023-12-21 Pat Name: JERAD BROWN Department: Room: - Gender: Female Route Agent: : 1975 Requested By: MANJULA ROSE Order Number: [id number] Reading MD: BRIONNA BROOKS Measurements Intervals [place] Rate: 81 P: 81 [place]: 130 QRS: 62 QRSD: 92 T: 66 QT: 402 QTc: 440 Interpretive Statements 1100 Sinus rhythm 9110 normal ECG Compared to ECG 09/13/2021 19:42:46 T-wave abnormality no longer present Electronically Signed On 12-23-2023 22:54:32 EDT by BRIONNA BROOKS
--- NOTE | 2023-12-21 17:19 | CT_ITS ---
[address] [address] Patient Name: JERAD BROWN MRN: [facility]:[id number] date: 1975 Sex: F Assigned Patient Location: ER Current Patient Location: ER Accession/Order Number: [id number] Exam Date: 12/21/2023 17:34 Report Date: 12/21/2023 18:46 At the request of: MARCIA JENSEN Procedure: CT abdomen pelvis wo con EXAM: CT abdomen pelvis wo con HISTORY: left upper abd pain COMPARISON: 09/13/2021 TECHNIQUE: Axial CT imaging was performed through the abdomen and pelvis without intravenous contrast. Multiplanar reformats were performed. Dose reduction techniques were achieved by using automated exposure control and/or adjustment of mA and/or kV according to patient size and/or use of iterative reconstruction technique. FINDINGS: Lung bases: Lung bases are clear. No pleural effusion. GI upper: Unremarkable. Liver: Normal size and contour. Gallbladder: Cholecystectomy. Biliary system: No intra or extrahepatic biliary ductal dilatation. Spleen: Normal size. Pancreas: Unremarkable. Adrenal glands: Unchanged bilateral nodular thickening of adrenal glands, likely representing adenoma. Kidneys/ureters: Normal contours. No hydronephrosis. No nephrolithiasis or ureterolithiasis. Vessels: No aneurysm. Lymph Nodes: No lymphadenopathy. Small bowel: No wall thickening or dilatation. Colon: No wall thickening or dilatation. Appendix: Appendix is identified with normal appearance. Peritoneal cavity: No free fluid or pneumoperitoneum. Lower : Bilateral tubal ligation. Hysterectomy. The urinary bladder is unremarkable. Bones: No acute bony abnormality. Soft tissues: No acute finding. Additional findings: None. CT/CT abdomen pelvis wo con IMPRESSION: No acute abnormality. Electronically authenticated by: JENNIFER MICHELE Date: 12/21/2023 18:46
[2023-12-21 17:28] LABS: Basophils Percent Auto 0.1 % (0.2-2.0); Eosinophils Absolute Auto 0.2 10^3/uL (0.0-0.7); Eosinophils Percent Auto 2.2 % (0.9-7.0); Hematocrit 39.3 % (36.0-48.0); Hemoglobin 13.2 g/dL (12.0-16.0); Immature Granulocytes Abs Auto 0.04 10^3/uL (0.00-0.03); Immature Granulocytes Pct Auto 0.4 % (0.0-0.5); Lymphocytes Absolute Auto 2.6 10^3/uL (1.2-3.8); Lymphocytes Percent Auto 24.7 % (20.5-60.0); Mean Corpuscular HGB Conc 33.6 g/dL (29.9-35.2); Mean Corpuscular Hemoglobin 31.7 pg (26.7-34.0); Mean Corpuscular Volume 94.5 fL (81.0-99.0); Mean Platelet Volume 10.1 fL (9.5-13.5); Monocytes Absolute Auto 0.7 10^3/uL (0.3-0.8); Monocytes Percent Auto 6.7 % (1.7-12.0); Neutrophils Absolute Auto 6.9 10^3/uL (1.4-6.5); Neutrophils Percent Auto 65.9 % (43.0-75.0); Platelet Count 338 10^3/uL (150-450); Red Blood Count 4.16 10^6/uL (4.20-5.40); Red Cell Distribution Width 13.1 % (11.0-15.0); White Blood Count 10.4 10^3/uL (4.0-11.0)
--- NOTE | 2023-12-21 17:29 | ED_ITS ---
HPI - Abdominal Pain General Chief Complaint: Abdominal Pain Stated Complaint: liver pain-hx stage 3 disease Time Seen by Provider: 12/21/23 16:53 Source: patient Mode of arrival: Wheelchair Limitations: no limitations History of Present Illness HPI narrative: The patient is coming to the ER with the left upper quadrant pain that been going on at least for the last 3 days, he mentioned that the pain associated wi th nausea and sometimes pain increased with eating, the patient have no history of epigastric pain but she does have a history of liver disease according to her she have stage III liver disease and she is supposed to get a CAT scan for possible cancer The patient also takes Percocet for her back pain Related Data Home Medications ?Medication ?Instructions ?Recorded ?Confirmed fluoxetine 60 mg tablet 60 mg PO DAILY 07/16/23 12/21/23 cyclobenzaprine 10 mg tablet 10 mg PO Q8H PRN muscle spasm 09/13/23 12/21/23 ibuprofen 800 mg tablet mg 09/13/23 Previous Rx's ?Medication ?Instructions ?Recorded methocarbamol 750 mg tablet 750 mg PO Q6H PRN pain #30 tabs 07/16/23 methylprednisolone 4 mg tablets in 4 mg PO DAILY #21 ea 09/04/23 a dose pack (Medrol (Ian)) oxycodone 5 mg capsule 5 mg PO Q6H PRN pain #10 caps 09/04/23 oxycodone 5 mg tablet 5 mg PO Q8H PRN pain 3 days #10 09/13/23 tabs oxycodone 5 mg tablet 5 mg PO Q6H PRN pain #6 tabs 09/21/23 oxycodone-acetaminophen 5 mg-325 1 tab PO Q6H PRN pain 3 days #10 11/03/23 mg tablet (Percocet) tabs Allergies Allergy/AdvReac Type Severity Reaction Status Date / Time nabumetone Allergy Mild Hives Verified 12/21/23 16:54 hydrocodone Allergy Hives Verified 12/21/23 16:54 ketorolac [From Toradol] Allergy Hives Verified 12/21/23 16:54 Penicillins Allergy Hives Verified 12/21/23 16:54 Review of Systems ROS Status of ROS 10 or more systems reviewed and unremark able except as noted in history and below PFSH PFS Surgical History (Updated 09/04/23 @ 15:39 by Michelle Marie) History of spinal surgery ?Z98.890 - Other specified postprocedural states (ICD-10) Social History Smoking status: Current every day smoker Little interest or pleasure in doing things: not at all Feeling down, depressed, or hopeless: not at all Exam Narrative Exam Narrative: Nurses notes and vital signs reviewed and patient is not hypoxic. General: Well-appearing and in no apparent distress. Skin: Warm, dry, no pallor noted. No rash. Head: Normocephalic, atraumatic. Neck: Supple, non-tender. Eye: Pupils are equal, round and EOMI. No scleral icterus. Ears, Nose, Mouth, and Throat: TM are clear, no nasal mucosal hypertrophy. Oral mucosa is moist, no posterior oropharynx erythema, uvula is mid-line Cardiovascular: Regular Rate and Rhythm without murmur, gallop or rub. Respiratory: No accessory muscle use or respiratory distress. Lungs are clear to auscultation, no wheezing, rales or rhonchi Chest Wall: no tenderness Back: No midline thoracic or lumbar vertebral tenderness. No CVA tenderness Musculoskeletal: normal ROM, no calf or popliteal tenderness, no lower extremity edema/swelling GI: Abdomen is soft, non-distended. Normal bowel sounds. No masses appreciated. There is subjective epigastric tenderness on exam .no rebound, guarding, or rigidity noted. Neurological: A&O x4. No cranial nerve dysfunction observed. No truncal ataxia. Moves all extremities. Sensation intact. Psychiatric: Cooperative and interactive. Normal mood and affect. Constitutional Vital Signs, click to edit/add: Last Vital Signs Temp 98.2 F 12/21/23 16:54 Pulse 84 12/21/23 17:41 Resp 12/21/23 17:41 BP 130/67 12/21/23 17:41 Pulse Ox 98 12/21/23 17:41 O2 Del Method Room Air 12/21/23 16:54 Course Vital Signs Vital signs: Vital Signs Temperature 98.2 F 12/21/23 16:54 Pulse Rate 87 12/21/23 16:54 Respiratory Rate 20 12/21/23 16:54 Blood Pressure 132/99 H 12/21/23 16:54 Pulse Oximetry 97 12/21/23 16:54 Oxygen Delivery Method Room Air 12/21/23 16:54 Temperature 98.2 F 12/21/23 16:54 Pulse Rate 84 12/21/23 17:41 Respiratory Rate 20 12/21/23 17:41 Blood Pressure 130/67 12/21/23 17:41 Pulse Oximetry 98 12/21/23 17:41 Oxygen Delivery Method Room Air 12/21/23 16:54 MDM - Abdominal Pain MDM Narrative Medical decision making narrative: The patient EKG showing sinus rhythm with a heart rate of [address] elevation or depression The patient CBC and chemistry showed no acute pathology and her CAT scan is awaiting the patient care will be transferred to Dr. Tubbs Lab Data Labs: Lab Results 12/21/23 Range/Units 17:18 WBC 10.4 (4.0-11.0) 10^3/uL RBC 4.16 L (4.20-5.40) 10^6/uL Hgb 13.2 (12.0-16.0) g/dL Hct 39.3 (36.0-48.0) % MCV 94.5 (81.0-99.0) fL MCH 31.7 (26.7-34.0) pg MCHC 33.6 (29.9-35.2) g/dL RDW 13.1 (11.0-15.0) % Plt Count 338 (150-450) 10^3/uL MPV 10.1 (9.5-13.5) fL Neut % (Auto) 65.9 (43.0-75.0) % Lymph % (Auto) 24.7 (20.5-60.0) % [place] % (Auto) 6.7 (1.7-12.0) % Eos % (Auto) 2.2 (0.9-7.0) % Baso % (Auto) 0.1 L (0.2-2.0) % Neut # (Auto) 6.9 H (1.4-6.5) 10^3/uL Lymph # (Auto) 2.6 (1.2-3.8) 10^3/uL [place] # (Auto) 0.7 (0.3-0.8) 10^3/uL Eos # (Auto) 0.2 (0.0-0.7) 10^3/uL Baso # (Auto) 0.0 (0.0-0.1) 10^3/uL Abs Immat Gran (auto) 0.04 H (0.00-0.03) 10^3/uL Imm/Tot Granulo (auto) 0.4 (0.0-0.5) % PT 10.2 (9.0-11.6) sec INR 0.96 Sodium 137 (136-145) mmol/L Potassium 3.9 (3.5-5.1) mmol/L Chloride 101 (98-107) mmol/L Carbon Dioxide 28.8 (21.0-32.0) mmol/L Anion Gap 11.1 BUN 10.0 (7.0-18.0) mg/dL Creatinine 0.95 (0.55-1.02) mg/dL Est GFR ( Amer) >60 (>=60) Est GFR (Non-Af Amer) >60 (>=60) BUN/Creatinine Ratio 10.5 Glucose 115 H (74-106) mg/dL Calcium 8.5 (8.5-10.1) mg/dL Total Bilirubin 0.3 (0.2-1.0) mg/dL AST 17 (15-37) U/L ALT 28 (14-59) U/L Alkaline Phosphatase 95 (46-116) U/L Troponin I High Sens <4.0 L (4.0-51.3) pg/mL Total Protein 7.1 (6.4-8.2) g/dL Albumin 3.4 (3.4-5.0) g/dL Globulin 3.7 g/dL Albumin/Globulin Ratio 0.9 Lipase 16.0 (16.0-77.0) U/L Discharge Plan Discharge Patient Disposition: Still a Patient
[2023-12-21 17:39] LABS: INR 0.96; Prothrombin Time 10.2 sec (9.0-11.6)
[2023-12-21 17:41] VITALS: BP 130/67; PULSE 84; O2SAT 98
[2023-12-21] MEDS: DICYCLOMINE HCL 20 MG/2 ML VIAL IM (17:41)
[2023-12-21] MEDS: ONDANSETRON PF 4 MG/2 ML VIAL IV (17:41)
[2023-12-21] MEDS: FAMOTIDINE/PF 20 MG/2 ML VIAL IV (17:41)
[2023-12-21 17:50] LABS: Alanine Aminotransferase 28 U/L (14-59); Albumin Globulin Ratio 0.9; Albumin Level 3.4 g/dL (3.4-5.0); Alkaline Phosphatase 95 U/L (46-116); Anion Gap 11.1; Aspartate Amino Transferase 17 U/L (15-37); BUN Creatinine Ratio 10.5; Bilirubin Total 0.3 mg/dL (0.2-1.0); Calcium 8.5 mg/dL (8.5-10.1); Carbon Dioxide 28.8 mmol/L (21.0-32.0); Chloride 101 mmol/L (98-107); Estimated GFR (African America >60 (>=60); Estimated GFR (Non-African Ame >60 (>=60); Globulin 3.7 g/dL; Glucose 115 mg/dL (74-106); Potassium 3.9 mmol/L (3.5-5.1); Sodium 137 mmol/L (136-145); Total Protein 7.1 g/dL (6.4-8.2); Troponin I High Sensitivity <4.0 pg/mL (4.0-51.3)
[2023-12-21 19:21] VITALS: BP 151/86; PULSE 90; O2SAT 94
== END 2023-12-21 19:35 | disposition home or self-care (01) ==
PROVIDERS: Emergency Medicine; Emergency Provider Student in an Organized Health Care Education/Training Program
DX: R10.9 Unspecified abdominal pain (principal); K76.9 Liver disease, unspecified; F17.200 Nicotine dependence, unspecified, uncomplicated
CPT/HCPCS: 36415; 74176; 80053; 83690; 84484; 85025; 85610; 93005; 96372; 96374; 96375; 99285; J0500; J2405

== ENCOUNTER 2024-02-22 16:11 | Emergency (ER) | payer OTHER, SELFPAY ==
[2024-02-22 16:15] VITALS: BP 145/80; PULSE 105; TEMP 36.7; O2SAT 100; BMI 44.3
--- NOTE | 2024-02-22 16:37 | ED.BACK1 ---
HPI HPI - Back Pain/Injury General Chief Complaint: Back Pain/Injury Stated Complaint: back pain, surgery 02-06-24 Time Seen by Provider: 02/22/24 16:27 Source: patient Mode of arrival: walk-in Limitations: no limitations History of Present Illness HPI Narrative: The patient had a history of recent back surgery is coming to us after she carried her grandkid today this morning apparently this exacerbated her pain The patient have lower lumbar pain not radiating not associated with any new symptoms of weakness numbness tingling or any incontinence of urine or stool Related Data Home Medications ?Medication ?Instructions ?Recorded ?Confirmed fluoxetine 60 mg tablet 60 mg PO DAILY 07/16/23 12/21/23 cyclobenzaprine 10 mg tablet 10 mg PO Q8H PRN muscle spasm 09/13/23 12/21/23 ibuprofen 800 mg tablet mg 09/13/23 Previous Rx's ?Medication ?Instructions ?Recorded methocarbamol 750 mg tablet 750 mg PO Q6H PRN pain #30 tabs 07/16/23 methylprednisolone 4 mg tablets in 4 mg PO DAILY #21 ea 09/04/23 a dose pack (Medrol (Ian)) oxycodone 5 mg capsule 5 mg PO Q6H PRN pain #10 caps 09/04/23 oxycodone 5 mg tablet 5 mg PO Q8H PRN pain 3 days #10 09/13/23 tabs oxycodone 5 mg tablet 5 mg PO Q6H PRN pain #6 tabs 09/21/23 oxycodone-acetaminophen 5 mg-325 1 tab PO Q6H PRN pain 3 days #10 11/03/23 mg tablet (Percocet) tabs dicyclomine 10 mg capsule 10 mg PO QID PRN abdominal pain 12/21/23 #12 caps ibuprofen 800 mg tablet 800 mg PO TID PRN pain #30 tabs 02/22/24 Allergies Allergy/AdvReac Type Severity Reaction Status Date / Time nabumetone Allergy Mild Hives Verified 12/21/23 16:54 hydrocodone Allergy Hives Verified 12/21/23 16:54 ketorolac (From Toradol) Allergy Hives Verified 12/21/23 16:54 Penicillins Allergy Hives Verified 12/21/23 16:54 Opioid HPI Opioid Management Most Recent Opioid Data: Last Pain Scale 9 09/04/23 16:13 09/04/23 Review of Systems ROS Status of ROS 10 or more systems reviewed and unremarkable except as noted in history and below [facility] Surgical History (Updated 09/04/23 @ 15:39 by Michelle Marie) History of spinal surgery ?Z98.890 - Other specified postprocedural states (ICD-10) Social History Smoking status: Current every day smoker Little interest or pleasure in doing things: not at all Feeling down, depressed, or hopeless: not at all Exam Narrative Exam Narrative: Nurses notes and vital signs reviewed and patient is not hypoxic. General: Well-appearing and in no apparent distress. Skin: Warm, dry, no pallor noted. No rash. Head: Normocephalic, atraumatic. Neck: Supple, non-tender. Eye: Pupils are equal, round and EOMI. No scleral icterus. Ears, Nose, Mouth, and Throat: TM are clear, no nasal mucosal hypertrophy. Oral mucosa is moist, no posterior oropharynx erythema, uvula is mid-line Cardiovascular: Regular Rate and Rhythm without murmur, gallop or rub. Respiratory: No accessory muscle use or respiratory distress. Lungs are clear to auscultation, no wheezing, rales or rhonchi Chest Wall: no tenderness Back: No midline thoracic or lumbar vertebral tenderness. There is a healing wound just lateral to the spine on the left side with no signs of infection .mildly tender almost 5 cm .longitudinal no CVA tenderness Musculoskeletal: normal ROM, no calf or popliteal tenderness, no lower extremity edema/swelling GI: Abdomen is soft, non-distended. Normal bowel sounds. No masses appreciated. No tenderness to palpation. No rebound, guarding, or rigidity noted. Neurological: A&O x4. No cranial nerve dysfunction observed. No truncal ataxia. Moves all extremities. Sensation intact. Psychiatric: Cooperative and interactive. Normal mood and affect. Constitutional Vital Signs, click to edit/add: Last Vital Signs Temp 98.1 F 02/22/24 16:15 Pulse 105 H 02/22/24 16:15 Resp 20 02/22/24 16:15 BP 145/80 H 02/22/24 16:15 Pulse Ox 100 02/22/24 16:15 O2 Del Method Room Air 02/22/24 16:15 Course Vital Signs Vital signs: Vital Signs Temperature 98.1 F 02/22/24 16:15 Pulse Rate 105 H 02/22/24 16:15 Respiratory Rate 20 02/22/24 16:15 Blood Pressure 145/80 H 02/22/24 16:15 Pulse Oximetry 100 02/22/24 16:15 Oxygen Delivery Method Room Air 02/22/24 16:15 Temperature 98.1 F 02/22/24 16:15 Pulse Rate 105 H 02/22/24 16:15 Respiratory Rate 20 02/22/24 16:15 Blood Pressure 145/80 H 02/22/24 16:15 Pulse Oximetry 100 02/22/24 16:15 Oxygen Delivery Method Room Air 02/22/24 16:15 MDM - Back Pain/Injury MDM Narrative Medical decision making narrative: The patient ran out of her Percocet I offered her to give her only 1 pill here discharged home with ibuprofen 800 after she requested the prescription of ibuprofen and I agreed The patient does need to continue supportive care she also is to come back in case of any alarming symptoms The patient avoid carrying anything heavy more than 5 pounds The patient is to follow up with primary care physician in next 2-3 days or to return to the emergency department should any of the signs or symptoms worsen or new symptoms develop. The patient agrees with the following Diagnosis and Treatment plan and the patient will be discharged home. Discharge Plan Discharge Chief Complaint: Back Pain/Injury Clinical Impression: Back pain Patient Disposition: Home, Self-Care Time of Disposition Decision: 16:36 Condition: Good Prescriptions / Home Meds: New ibuprofen 800 mg tablet 800 mg PO TID PRN (Reason: pain) Qty: 30 0RF No Action cyclobenzaprine 10 mg tablet 10 mg PO Q8H PRN (Reason: muscle spasm) ibuprofen 800 mg tablet oxycodone 5 mg tablet 5 mg PO Q8H PRN (Reason: pain) 3 Days Qty: 10 0RF oxycodone 5 mg tablet 5 mg PO Q6H PRN (Reason: pain) Qty: 6 0RF fluoxetine 60 mg tablet 60 mg PO DAILY methocarbamol 750 mg tablet 750 mg PO Q6H PRN (Reason: pain) Qty: 30 0RF oxycodone 5 mg capsule 5 mg PO Q6H PRN (Reason: pain) Qty: 10 0RF methylprednisolone [Medrol (Ian)] 4 mg tablets,dose pack 4 mg PO DAILY Qty: 21 0RF oxycodone-acetaminophen [Percocet] 5-325 mg tablet 1 tab PO Q6H PRN (Reason: pain) 3 Days Qty: 10 0RF dicyclomine 10 mg capsule 10 mg PO QID PRN (Reason: abdominal pain) Qty: 12 0RF Print Language: Belarusian Instructions: Back Pain (ED) Referrals: Physician,Non-Staff, MD [Primary Care Provider] - 1 week
--- OUTSIDE RECORDS SUMMARY | 2024-02-22 16:38 | XMS_ITS | CCD ---
Author Organization [facility] Informat ion Partnership [facility] Care Team Providers Care Screening Technician Name Role Phone JULIENROSHAN RAMIREZ Primary Care Physician Jd Malone Unavailable Avery Goodman Unavailable [facility] Primary Care Provider DO Vlad Bhandari Emergency Provider [phone] MORGAN Romero Attending Provider DO José Miguel Mcnamara Emergency Provider GINGER Bennett Emergency Provider [phone] ELIZABETH Veliz Attending Provider DO Berto Villasenor Emergency Provider [phone] [facility] Primary Care Provider DR ZELALEM TRIVEDI Primary Care Unavailable JUAN TRUONG Admitting Unavailable JUAN TRUONG Attending Unavailable DR PROMISE MCKEON Consulting Unavailable JUAN TRUONG Consulting Unavailable ALMAS GRULLON Admitting Unavailable ALMAS GRULLON Attending Unavailable DR ZELALEM TRIVEDI Primary Care Unavailable JOON MOSLEY Consulting Unavailable LEILANI SOLOMON Consulting Unavailable [facility] Primary Care Provider [phone] GINGER Lamar Emergency Provider [phone] [facility] Primary Care Provider DO Berto Villasenor Emergency Provider ELIZABETH Veliz Attending Provider GINGER Lamar Emergency Provider DO Dalton Ceja Emergency Provider [facility] Primary Care Provider DO Cameron Rene Emergency Provider Unavai yolanda [facility] Primary Care Provider DO Berto Villasenor Emergency Provider [phone] MD Jorge Dan Emergency Provider [phone] Keke Skaggs Unavailable [facility] Primary Care Provider MD Jorge Dan Emergency Provider MD Keke Skaggs [facility] Emergency Provider [facility] Primary Care Provider GINGER Bennett Emergency Provider Rose Marie Shepherd Unavailable ELIZABETH eVliz Attending Provider ELIZABETH Ferrell Emergency Provider [phone] MD Rena Belcher B Emergency Provider Glen Garza Unavailable NONE, XXXX Primary Care Physician Unavailab MD Jorge Samuel Emergency Provider [phone] [facility] Primary Care Provider Nathalia [facility] Mary Beth E Emergency Provider MD Joe Meza Attending Provider ELZBIETA Shepherd Attending Provider MD Glen Garza S Attending Provider [phone] DO Vlad Bhandari Emergency Provider ELIZABETH Carmichael Emergency Provider [phone] GINGER Dowd Emergency Provider MD Avery Berger Jr Emergency Provider [facility] Primary Care Provider GINGER Bennett Emergency Provider [phone] MD RASHAD MCKEON Attending Unavaila david Family [facility], Services Primary Care Provider [phone] Sebastienimceline, [facility] Mary Beth E Emergency Provider [phone] [facility], Services Primary Care Provider [phone] ELIZABETH Ferrell Emergency Provider [facility], Services Primary Care Provider Sebastienore, [facility] Mary Beth E Emergency Provider NO FAMILY, PHYSICIAN Primary Care Provider Unava alvaro Bermeo MD, [facility] Primary Care Provider [phone] [facility], Services Primary Care Provider [phone] ELIZABETH Ferrell Emergency Provider ELZBIETA Shepherd Attending Provider [facility], Services Primary Care Provider Nathalia, [facility] Mary Beth E Emergency Provider MD Glen Garza Attending Provider [facility], Services Primary Care Provider GINGER Bennett Emergency Provider DO Vlad Bhandari Emergency Provider [phone] [facility], Services Primary Care Provider ELIZABETH Ferrell Emergency Provider [phone] GINGER Bennett Emergency Provider ELIZABETH Veliz Primary Care Provider [phone] [facility], Services Primary Care Provider Joe Meza Unavailable [facility], Services Primary Care Provider [phone] Nathalia, [facility] Mary Beth E Emergency Provider NON STAFF Primary Care Provider UnavailELIZABETH Monson Emergency Provider Antonio Husain PA-C Primary Care Provider [phone] [facility] Primary Care Provider Nathalia, [facility]- Mary Beth E Emergency Provider [phone] ELIZABETH Ferrell Emergency Provider [facility] Primary Care Provider [phone] ELZBIETA Shepherd Attending Provider DO Fiorella dupreerick Mukund Emergency Provider Nathalia, [facility] Mary Beth E Emergency Provider ELIZABETH Ferrell Emergency Provider GINGER Bennett Emergency Provider MD Glen Garza Attending Provider [phone] NO FAMILY, PHYSICIAN Primary Care Provider Unava ilable ELIZABETH Veliz Primary Care Provider NON STAFF Primary Care Provider ELIZABETH Valentin Emergency Provider [facility] Primary Care Provider ELZBIETA Shepherd Attending Provider DO Vlad Bhandari Emergency Provider [facility] Primary Care Provider ELIZABETH Ferrell Emergency Provider Nathalia [facility] Mary Beth E Emergency Provider ELZBIETA Shepherd Attending Provider DO Vlad Bhandari Emergency Provider [phone] NO FAMILY, PHYSICIAN Primary Care Provider Unava ilable Nathalia [facility] Mary Beth E Emergency Provider MD Glen Garza Attending Provider ELIZABETH Ferrell Emergency Provider ANTONIO HUSAIN Primary Care Physician [phone] ELIZABETH Veliz Primary Care Provider ELIZABETH Ferrell Emergency Provider [place], TE[employer]NICAL CONSULTANT-[employer] Mary Beth E Emergency Provider NO FAMILY, PHYSICIAN Primary Care Provider Unava ilable NON STAFF Primary Care Provider Unavailabl e Mariaelena HIM SPECIALISTRadha Lewis Emergency Provider [place], TECHNICAL CONSULTANT-BC Mary Beth E Emergency Provider [facility], Services Primary Care Provider NO FAMILY, PHYSICIAN Primary Care Provider Unava ilable ELIZABETH Huertae A Emergency Provider ELIZABETH Ferrell Emergency Provider Cheyanne Rosas Primary Care Physician NO FAMILY, PHYSICIAN Primary Care Provider Unava ilable [place], TECHNICAL CONSULTANT-BC Mary Beth E Emergency Provider ELIZABETH Huerta Emergency Provider ELIZABETH Giraldo Emergency Provider Slime Sherwood DO Primary Care Provider ELIZABETH Ferrell Emergency Provider [facility], Services Primary Care Provider ELIZABETH Huertae Seng Emergency Provider ELIZABETH Giraldo Emergency Provider ELIZABETH Carmichael Emergency Provider DO Vlad Bhandari Emergency Provider [phone] [facility], Services Primary Care Provider ELIZABETH Ferrell Emergency Provider [phone] Bullgurpreet, TECHNICAL CONSULTANT-BC Mary Beth E Emergency Provider [phone] Generic Provider MD, No Assigned Pcp Primary Car e Provider Unavailable [facility], Services Primary Care Provider ELIZABETH Carmichael Emergency Provider Unavailable Primary Care Provider Unavailabl e [facility], Services Primary Care Provider [phone] MD Abby Jensen Emergency Provider MD Peter Veliz Emergency Provider WICHO TUBBS Attending Unavailable BENJA MISHRA Attending Unavailable DO Dalton Ceja Emergency Provider DO José Miguel Mcnamara Emergency Provider PCP, No Primary Care Unavailable Flex Veliz Attending Unavailable PCP, No Primary Care Provider UnavailFlex Niño MD Emergency Provider Unavailable DO Vlad Bhandari Emergency Provider [phone] [facility] Primary Care Provider [phone] ELIZABETH Carmichael Emergency Provider Generic Provider MD, No Assigned Pcp Primary Car e Provider Unavailable Annette, Astrit H Attending Unavailable Jorge Mcintosh Attending Unavailable Hajdari, Astrit H Attending Unavailable Hazander, Astrit H Attending Unavailable NO FAMILY, PHYSICIAN Primary Care Provider Unava ilable ELIZABETH Ferrell Emergency Provider [phone] Amari SOTO, Marlee Rausch Primary Care Provider Josafat [facility], Tracee A Unavailable Unavaila Kristin Young Admitting Unavailable Kristin Bryant Attending Unavailable Ralph TECHNICAL CONSULTANT, Cheyanne Primary Care Unavailable Ralph ARGUELLOP, Cheyanne Primary Care Unavailable Peter Chavez Admitting Unavailab Peter Michel Attending Unavailab loretta Rosas TECHNICAL CONSULTANT, Cheyanne Primary Care Unavailable Daryl Cullen Admitting Unavailable Daryl Cullen Attending Unavailable Brianda DUPREE-David, Susu E Admitting Unavailable Brianda DUPREE-C, Susu E Attending Unavailable Ralph TECHNICAL CONSULTANT, Cheyanne Primary Care Unavailable Raj Ayers Admitting Unavailable Raj Ayers Attending Unavailable Ralph TECHNICAL CONSULTANT, Cheyanne Primary Care Unavailable Avelino RN, Natalia Unavailable Unavailable Avelino RN, Natalia Unavailable Unavailable [facility] Primary Care Provider [phone] Mono MILES, Abby Romero Attending Unavaila ble Unavailable, Physician Primary Care Unavailab loretta Linder HIM SPECIALIST-LEAD PROGRAMMER, Daysi Muñoz Attending Unavailable Unavailable, Physician Primary Care Unavailab loretta Castañeda PA-C, Dory Garcia Attending Unavailseng Linder HIM SPECIALIST-Daysi GRAY Attending Unavailable ALLYSON NICOLE Attending Unavailable BEN URBINA Attending Unavailable KEKE PAYNE Attending Unavailable SAL JUAREZ Attending Unavailable BELKIS HERNANDEZ Attending Unavailable ANTONIO HUSAIN Primary Care Unavailable BELKIS HERNANDEZ Referring Unavailable ANTONIO HUSAIN Primary Care Unavailable DECLAN DEL ANGEL Attending Unavailable SLIME SHERWOOD Primary Care Unavailable Balbina Bryant Attending Unavailable [facility], Services Primary Care Provider [phone] DO Dalton Ceja Emergency Provider DO José Miguel Mcnamara Emergency Provider DO Vlad Bhandari Emergency Provider ELIZABETH Carmichael Emergency Provider NO FAMILY, PHYSICIAN Primary Care Provider Unava ilable ELIZABETH Ferrell [facility] Lucero Emergency Provider Natalia You RN Unavailable Unavailable NO, PHYSICIAN Primary Care Unavailable HORACIO MCCOY Attending Unavailable BIB BOWMAN Referring Unavailable FITZPATRICK, HARMOHINDER S Primary Care Unavailab le DRAKE KENYON Consulting Unavailable CHIRAG MIGUEL Admitting Unavailable CHIRAG MIGUEL Attending Unavailable DINO MELGOZA I Attending Unavailable FITZPATRICK, HARMOHINDER S Primary Care Unavailab le FITZPATRICK, HARMOHINDER S Primary Care Unavailab le FITZPATRICK, HARMOHINDER S Primary Care Unavailab le GENERIC PROVIDER, NO ASSIGNED PCP Primary Care Unavailable GENERIC PROVIDER, NO ASSIGNED PCP Primary Care Unavailable CHIRAG REYNOSO Referring Unavailab le GENERIC PROVIDER, NO ASSIGNED PCP Primary Care Unavailable GENERIC PROVIDER, NO ASSIGNED PCP Primary Care Unavailable JAROCHO TRONCOSO Attending Unavailable ANTONIO HUSAIN Referring Unavailable GENERIC PROVIDER, NO ASSIGNED PCP Primary Care Unavailable FELICE VELIZ Primary Care Unavailable JAROCHO TRONCOSO Attending Unavailable CHIDI JOSEPH Referring Unavailable GENERIC PROVIDER, NO ASSIGNED PCP Primary Care Unavailable FITZPATRICK, HARMOHINDER S Primary Care Unavailab le FITZPATRICK, HARMOHINDER S Primary Care Unavailab le RAY, JUDAH Admitting Unavailable RAY, JUDAH Attending Unavailable FITZPATRICK, HARMOHINDER S Primary Care Unavailab le RAY, JUDAH Referring Unavailable FITZPATRICK, HARMOHINDER S Primary Care Unavailab le RAY, JUDAH Referring Unavailable FITZPATRICK, HARMOHINDER S Primary Care Unavailab le Marcial DO, Dalton Emergency Provider [phone] Naima DOJosé Miguel Emergency Provider [phone] Elisabet DO, Vlad Nguyen Emergency Provider Deb Carmichael APRN Emergency Provider Joshua Ferrell APRN Emergency Provider Nathalia TECHNICAL CONSULTANT-, Mary Beth Lucero Emergency Provider Narciso Bennett PA-C Emergency Provider Hajdari, Astrit H Attending Unavailable Nikhil Tubbs Attending Unavailable Jorge Mcintosh Attending Unavailable Hajdari, Astrit H Attending Unavailable Arnaldo, John Attending Unavailable Hajdari, Astrit H Attending Unavailable Hajdari, Astrit H Attending Unavailable Dokken, Kaylinn A Attending Unavailable Sherron CHAUDHARI Attending Unavailable Sherron CHAUDHARI Attending Unavailable Hajdari, Astrit H Attending Unavailable Chance, Pedro Pablo S. Attending Unavailable DokkenBebetoylinn A Attending Unavailable Chance, Pedro Pablo S. Attending Unavailable Chance, Pedro Pablo S. Attending Unavailable Hajdari, Astrit H Attending Unavailable Hajdari, Astrit H Attending Unavailable Jorge Mcintosh Attending Unavailable Dokken, Kaylinn A Attending Unavailable Nikhil Tubbs Attending Unavailable Hajdari, Astrit H Attending Unavailable Jorge Mcintosh Attending Unavailable Chance, Pedro Pablo S. Attending Unavailable Hajdari, Astrit H Attending Unavailable Nikhil Tubbs Attending Unavailable Hajdari, Astrit H Attending Unavailable Chance, Pedro Pablo S. Attending Unavailable Hajdari, Astrit H Attending Unavailable Nikhil Tubbs Attending Unavailable Hajdari, Astrit H Attending Unavailable Nikhil Tubbs Attending Unavailable Nikhil Tubbs Attending Unavailable Jorge Mcintosh Attending Unavailable Chance, Pedro Pablo S. Attending Unavailable Balbina Bryant Attending Unavailable Arnaldo, Jorge Attending Unavailable Cheyanne Rosas Attending Unavailable Nikhil Tubbs Attending Unavailable Dax Lira Attending Unavailable Ashia Ruiz Attending Unavailable Ashia Ruiz Attending Unavailable Arnaldo, Jorge Attending Unavailable Nikhil Tubbs Attending Unavailable Nikhil Tubbs Attending Unavailable Pedro Pablo Fletcher Attending Unavailable Annette Astrute H Attending Unavailable Nikhil Tubbs Attending Unavailable Arnaldo, Jorge Attending Unavailable Arnaldo, Jorge Attending Unavailable Domenic Sher Attending Unavailable Cheyanne Rosas Referring Unavailable DO Domenic Sher Admitting Unavailabl e NONE, XXXX Referring Unavailable Dory Shepherd Attending Unavailable GINGER Shepherd Admitting Unavailabl e Arnaldo, Jorge Attending Unavailable Elisa Sánchez Attending Unavailable Nikhil Tubbs Attending Unavailable Balbina Bryant Attending Unavailable Arnaldo, Jorge Attending Unavailable Nikhil Tubbs Attending Unavailable Nikhil Tubbs Attending Unavailable Pedro Pablo Fletcher SAdrien Attending Unavailable Elisa Sánchez Attending Unavailable Annette Astrute Sparks Attending Unavailable Nikhil Tubbs Attending Unavailable Jorge Mcintosh Attending Unavailable Bull[place], Mary Beth E Attending Unavailable Bull[place], Mary Beth E Admitting Unavailable [facility] Primary Care Unavaila ble [facility] Primary Care Unavaila ble Kecarlos José Miguel A Admitting Unavailable José Miguel Mcnamara A Attending Unavailable [facility] Primary Care Unavaila ble Vlad Bhandari Attending Unavailable Vlad Bhandari Admitting Unavailable [facility] Primary Care Unavaila ble Joshua Ferrell Attending Unavailable Joshua Ferrell Admitting Unavailable [facility] Primary Care Unavaila ble Deanna, Kati A Attending Unavailable Deanna Kati A Admitting Unavailable Vlad Bhandari Attending Unavailable Vlad Bhandari Admitting Unavailable [facility] Primary Care Unavaila ble Abby Jensen Attending Unavailable Abby Jensen Admitting Unavailable [facility] Primary Care Unavaila ble [facility] Primary Care Unavaila ble Deb Carmichael Attending Unavailable Deb Carmichael Admitting Unavailable [facility] Primary Care Unavaila ble Dalton Ceja Attending Unavailable Dalton Ceja Admitting Unavailable [facility] Primary Care Unavaila ble Saffle, Deb N Attending Unavailable Saffle, Deb N Admitting Unavailable Mariaelena, Joshua Attending Unavailable Mariaelena, Joshua Admitting Unavailable NO FAMILY, PHYSICIAN Primary Care Unavailable NO FAMILY, PHYSICIAN Primary Care Unavailable Bull[place], Mary Beth E Attending Unavailable [place], Mary Beth E Admitting Unavailable NO FAMILY, PHYSICIAN Primary Care Unavailable Mariaelena, Joshua Attending Unavailable Mariaelena, Joshua Admitting Unavailable [facility] Primary Care Unavaila ble Mariaelena, Joshua Attending Unavailable Mariaelena, Joshua Admitting Unavailable Saffle, Deb N Attending Unavailable Saffle, Deb N Admitting Unavailable NO FAMILY, PHYSICIAN Primary Care Unavailable NO FAMILY, PHYSICIAN Primary Care Unavailable [place], Mary Beth E Attending Unavailable [place], Mary Beth E Admitting Unavailable NO FAMILY, PHYSICIAN Primary Care Unavailable Narciso Bennett Attending Unavailable Narciso Bennett Admitting Unavailable [facility] Primary Care Unavaila Laurita Redd Attending Unavailable Laurita Giraldo Admitting Unavailable [facility] Primary Care Unavaila ble Mariaelena, Joshua Attending Unavailable Mariaelena, Joshua Admitting Unavailable NO FAMILY, PHYSICIAN Primary Care Unavailable Mariaelena, Joshua Attending Unavailable Mariaelena, Joshua Admitting Unavailable [facility] Primary Care Unavaila ble [place]angee, Deb N Attending Unavailable Saffle, Deb N Admitting Unavailable [facility] Primary Care Unavaila ble Peter Veliz Attending Unavailable Peter Veliz Admitting Unavailable GENERIC PROVIDER, NO ASSIGNED PCP Primary Care Unavailable GENERIC PROVIDER, NO ASSIGNED PCP Primary Care Unavailable FITZPATRICK, HARMOHINDER S Primary Care Unavailab le FITZPATRICK, HARMOHINDER S Primary Care Unavailab le FITZPATRICK, HARMOHINDER S Primary Care Unavailab CHIDI Morales Referring Unavailable ANTONIO HUSAIN Primary Care Unavailable ELKE ADAMS Attending Unavailable ANTONIO HUSAIN Referring Unavailable ANTONIO HUSAIN M Primary Care Unavailable OBSLIME REYES Primary Care Unavailable ELENA, ELKE A Admitting Unavailable ELENA ELKE A Attending Unavailable FITZPATRICK, HARMOHINDER S Primary Care Unavailab le SLIME SHERWOOD Primary Care Unavailable ELENA, ELKE A Referring Unavailable GENERIC PROVIDER, NO [...] A Attending Unavailable GILLIAN BELL Consulting Unavailable GENERIC PROVIDER, NO ASSIGNED PCP Primary Care Unavailable EMA ANDRADE Attending Unavailable CHIDI JOSEPH Attending Unavailable EFE VELA Referring Unavailable NEWANTONIO KENT M Primary Care Unavailable NEWANTONIO KENT M Primary Care Unavailable GENERIC PROVIDER, NO ASSIGNED PCP Primary Care Unavailable SWEET, ELKE A Admitting Unavailable SWEET, ELKE A Attending Unavailable CRISTOBAL GARIBAY Referring Unavailable GENERIC [...] PROVIDER, NO ASSIGNED PCP Primary Care Unavailable FATOU TELLEZ Attending Unavailable GENERIC PROVIDER, NO ASSIGNED PCP Primary Care Unavailable CHIDI JOSEPH Attending Unavailable GENERIC PROVIDER, NO ASSIGNED PCP Primary Care Unavailable GIULIA MAN Admitting Unavailable GIULIA MAN Attending Unavailable BIB BOWMAN Referring Unavailable FITZPATRICK, HARMOHINDER S Primary Care Unavailab le AMARI, HARMOHINDER S Primary Care Unavailab ALLYSON Khoury Attending Unavailable Jorge Mcintosh Attending Unavailable Balbina Bryant Attending Unavailable Arnaldo, Jorge Attending Unavailable Arnaldo, Jorge Attending Unavailable Nikhil Tubbs Attending Unavailable Arnaldo, Jorge Attending Unavailable SWEET, ELKE A Attending Unavailable GENERIC [...] Care Unavailable SWEET, ELKE A Attending Unavailable FELICE VELIZ Primary Care Unavailable SWEET, ELKE A Attending Unavailable GENERIC PROVIDER, NO ASSIGNED PCP Primary Care Unavailable PABLO GERONIMO Attending Unavailable FITZPATRICK, HARMOHINDER S Primary Care Unavailab le SWEET, ELKE A Attending Unavailable GENERIC PROVIDER, NO ASSIGNED PCP Primary Care Unavailable FITZPATRICK, HARMOHINDER S Primary Care Unavailab le SWEET, EKLE A Consulting Unavailable SIMON DOMINGUEZ Admitting Unavailable GOUDIABY, SHELTON Attending Unavailable FITZPATRICK, HARMOHINDER S Primary Care Unavailab DINORA Fernandes Admitting Unavailable GOUDIABY, SHELTON Attending Unavailable JUDAH WOODARD Attending Unavailable FITZPATRICK, HARMOHINDER S Primary Care Unavailab le FITZPATRICK, HARMOHINDER S Primary Care Unavailab le FITZPATRICK, HARMOHINDER S Primary Care Unavailab le BIB BOWMAN Attending Unavailable Nikhil Tubbs Attending Unavailable Allergies Allergy Classification Reported Allergen(s) Allergy Type Date of Onset Reaction(s) Facility Acetaminophen / HYDROcodone (4 sources) Acetaminophen / HYDROcodone; Translations: [acetaminophen-hy drocodone] [facility] NSAIDs (4 sources) nabumetone; Translations: [nabumetone] Drug Allergy 3 Nausea/vomitin g, Rash [facility] Opioid Agonists (1 source) HYDROcodone Drug Allergy 3 Hives, Unknown [facility] Work Phone: Penicillins (antibiotic) (4 sources) Penicillin; Translations: [penicillin] Drug Allergy 3 Hives, Unknown [facility] (20 sources) Acetaminophen / HYDROcodone; Translations: [Acetaminophen / Hydrocodone] Drug Allergy Unknown, [facility] (20 sources) Diclofenac Drug Allergy 4 Unknown, [facility] (20 sources) HYDROcodone; Translations: [Hydrocodone] Drug Allergy 4 Hives, Unknown, Rash [facility] (20 sources) Penicillins; Translations: [PENICILLINS] Propensity to adverse reactions 2 Hives, Unknown [facility] (20 sources) Penicillin; Translations: [penicillin] Drug Allergy 2 Unknown, Hives [facility] Repository (20 sources) Acetaminophen; Translations: [Acetaminophen] Drug Allergy 2 Unknown (qualifier value), Unknown [facility] Comment on above: stage 3 liver fibros is (20 sources) nabumetone; Translations: [nabumetone] Drug Allergy 3 Nausea/vomitin g, Rash [facility] (17 sources) Acetaminophen / HYDROcodone; Translations: [HYDROCODONE-ACET AMINOPHEN] Drug Allergy 3 [facility] (16 sources) Penicillin G; Translations: [PENICILLIN G] Drug Allergy 3 [facility] (20 sources) gabapentin; Translations: [GABAPENTIN] Drug Allergy 4 Headache [facility] (8 sources) Acetaminophen; Translations: [Tylenol] Drug Allergy [facility] Repository (6 sources) pregabalin; Translations: [PREGABALIN] Drug Allergy 4 Swelling [facility] Work Phone: (1 source) Diclofenac Drug Allergy 4 [facility] Repository Medications Current Medications Medication Drug Class(es) Dates Sig (Normalized) Sig (Original) acetaminophen 500 mg oral tablet (6 sources) Start: 11-27-2023 take 2 tablets by mouth every eight hours as needed for pain Acetaminophen (Tylenol Extra Strength) 500 mg tablet Active 1000 MG PO Q8H as needed for pain November 27, 2023 12:00am Start: 09-23-2023 End: 01-04-2024 take 2 tablets by mouth every six hours for pain acetaminophen (Tylenol) 325 mg tablet Indications: Acute post-operative pain Take 2 tablets (650 mg) by mouth every 6 hours if needed for mild pain (1 - 3). 30 tablet 09/23/2023 01/04/2024 Discontinued (Stop Taking at Discharge) Start: 08-09-2023 End: 08-09-2023 acetaminophen (TYLENOL EXTRA [...] oral tablet (20 sources) Opioid Agonist Start: 02-06-2024 End: 02-12-2024 take 1 tablet by mouth every six hours in the evening for pain oxyCODONE-acetaminophen (Percocet) 5-325 mg tablet Indications: Lumbar disc herniation with radiculopathy Take 1 tablet by mouth every 6 hours if needed for severe pain (7 - 10) for up to 6 days. 24 tablet 02/06/2024 3:50 PM EST 02/06/2024 02/12/2024 Active Start: 12-30-2023 End: 12-30-2023 take 1 tablet by mouth once as needed for pain 1 tablet, oral, Once, On 12/30/23 at 1925, For 1 dose, If ordered PRN for pain, nurse is permitted to administer this medication for higher pain scores based on patient preference? Yes Start: 11-24-2023 End: 11-26-2023 acetaminophen-oxycodone 325 mg-5 [...] every six hours as needed for pain Oxycodone-Acetaminophen (Percocet) 5-325 mg tablet Discontinued 1 TAB PO Every 6 hours as needed for pain 02 24May 19, 2023 June 01, 2023 1:55pm Start: 12-24-2022 End: 01-12-2023 take 1 tablet by mouth every six hours as needed for pain Oxycodone-Acetaminophen 5-325 mg tablet Discontinued 1 TAB PO Q6H as needed for pain 02 24January 07, 2023 January 12, 2023 9:17am Start: 12-21-2022 End: 12-24-2022 take 1 tablet by mouth every eight hours as needed for pain Oxycodone-Acetaminophen (Percocet) 5-325 mg tablet Discontinued 1 TAB PO Q8H as needed for pain 9 December 21, 2022 December 24, 2022 12:07pm Start: 12-18-2022 End: 12-21-2022 Percocet 5 mg-325 [...] every six hours as needed for pain Oxycodone-Acetaminophen 5-325 mg tablet Discontinued 1 TAB PO Q6H as needed for pain 10 November 18, 2022 November 29, 2022 2:27pm Start: 11-08-2022 End: 11-11-2022 take 1 tablet by mouth every six hours as needed for pain Oxycodone-Acetaminophen 5-325 mg tablet Discontinued 1 TAB PO Q6H as needed for pain 10 November 08, 2022 November 11, 2022 2:38pm Start: 10-11-2022 End: 10-25-2022 take 1 tablet by mouth every six hours as needed for pain Oxycodone-Acetaminophen 5-325 mg tablet Discontinued 1 TAB PO Q6H as needed for pain 12 October 16, 2022 October 25, 2022 10:29pm Start: 10-07-2022 End: 10-11-2022 take 1 tablet by mouth every four to six hours as needed for pain Oxycodone-Acetaminophen (Percocet) 5-325 mg tablet Discontinued 1 TAB PO EVERY 4-6 HOURS as needed for pain 4 October 07, 2022 October 11, 2022 4:28pm Start: 09-28-2022 End: 10-02-2022 take 1 tablet by mouth every eight hours as needed for pain Oxycodone-Acetaminophen (Percocet) 5-325 mg tablet Discontinued 1 TAB PO Q8H as needed for pain 7 2 September 28, 2022 October 02, 2022 6:03pm Start: 09-18-2022 End: 09-28-2022 take 1 tablet by mouth every six hours as needed for pain Oxycodone-Acetaminophen (Percocet) 5-325 mg tablet Discontinued 1 TAB PO Q6H as needed for pain 10 September 24, 2022 September 28, 2022 4:16pm Start: 09-05-2022 End: 09-11-2022 take 1 tablet by mouth every eight hours as needed for pain Oxycodone-Acetaminophen (Percocet) 5-325 mg tablet Discontinued 1 TAB PO Q8H as needed for pain 10 September 05, 2022 September 11, 2022 11:38am Start: 08-26-2022 End: 09-01-2022 take 1 tablet by mouth every six hours as needed for pain Oxycodone-Acetaminophen 5-325 mg tablet Discontinued 1 TAB PO Q6H as needed for pain 10 August 26, 2022 September 01, 2022 1:59pm Start: 08-17-2022 End: 08-26-2022 take 1 tablet by mouth every four to six hours as needed for pain Oxycodone-Acetaminophen (Percocet) 5-325 mg tablet Discontinued 1 TAB PO EVERY 4-6 HOURS as needed for pain 12 August 17, 2022 August 26, 2022 2:39pm Start: 08-13-2022 End: 08-26-2022 take 1 tablet by mouth every eight hours as needed for pain Oxycodone-Acetaminophen (Percocet) 5-325 mg tablet Discontinued 1 TAB PO Q8H as needed for pain 10 3 August 13, 2022 August 26, 2022 2:39pm Start: 08-02-2022 End: 08-06-2022 take 1 tablet by mouth every six hours as needed for pain Oxycodone-Acetaminophen (Percocet) 5-325 mg tablet Discontinued 1 TAB PO Q6H as needed for pain 8 2 August 02, 2022 August 06, 2022 5:46pm Start: 03-14-2022 End: 03-29-2022 take 1 tablet by mouth once daily as needed for pain Oxycodone-Acetaminophen (Percocet) 5-325 mg tablet Discontinued 1 TAB PO Daily as needed for pain 5 5 March 14, 2022 March 29, 2022 1:25pm Start: 04-27-2021 End: 06-02-2021 take 1 tablet by mouth every six hours as needed for pain Oxycodone-Acetaminophen 5-325 mg tablet Discontinued 1 TAB PO Q6H as needed for pain 10 3 April 27, 2021 June 02, 2021 12:55pm Start: 11-27-2020 End: 01-27-2023 take 1 tablet by mouth three times daily as needed for pain Oxycodone-Acetaminophen (Percocet) 5-325 mg tablet Discontinued 1 TAB PO Three times daily as needed for pain 6 2 January 12, 2023 January 27, 2023 10:40am Start: 05-10-2020 End: 06-30-2020 take 1 tablet by mouth every four to six hours as needed for pain Oxycodone-Acetaminophen (Percocet) 5-325 mg tablet Discontinued 1 TAB PO EVERY 4-6 HOURS as needed for pain 7 2 May 10, 2020 June 30, 2020 2:39pm Start: 06-20-2017 End: 04-11-2018 take 1 tablet by mouth every four to six hours as needed for pain Oxycodone-Acetaminophen (Percocet) 5-325 mg tablet Discontinued 1 TAB PO EVERY 4-6 HOURS as needed for pain 7 August 29, 2017 April 01, 2018 7:03pm albuterol 0.83 mg/ml inhalation solution (20 sources) beta2-Adrenergic Agonist Start: 02-06-2024 2.5 m g, nebulization, Once as needed, wheezing, Starting on Sat02/06/24 at 1704, For 1 dose, Recovery (only) Start: 07-24-2021 Albuterol Sulf ate 90 mcg/actuation HFA aerosol inhaler Active 2 INH INHALATION .every 4 hours prn 18 July 23, 2021 11:00pm administer with spacer Start: 02-02-2020 End: 06-30-2020 Albuterol Sulfate 90 mcg/act uation HFA aerosol inhaler Discontinued 2 INH INHALATION EVERY 4-6 HOURS as needed for shortness of breath or wheezing 6.7 February 02, 2020 12:00am June 30, 2020 2:39pm Albuterol (Eqv-ProAir HFA) 90 mcg/inh inhalation aerosol (3 sources) Start: 02-14-2024 End: 02-21-2024 take 2 puff(s) by inhalation every six hours Albuterol (Eqv-ProAir HFA) 90 mcg/inh inhalation aerosol 2 puff(s), Inhalation, q6hr for 7 day(s), 6.7 gm, Refill(s) 0, [facility] #[id number], 160, cm, 02/14/24 12:22:00 EST, Height/Length Dosing, 114.8, kg, 02/14/24 12:22:00 EST, Weight Dosing Start Date: 02/14/24 Stop Date: 02/21/24 Status: Ordered aluminum hydroxide 40 mg/ml / magnesium hydroxide 40 mg/ml / simethicone 4 mg/ml oral suspension (1 source) Start: 01-27-2024 take 20 mL by mouth every four hours as needed 20 mL, oral, Every 4 hours PRN, indigestion, heartburn, Starting on 01/27/24 at 0415 Aspirin / butalbital / Caffeine (2 sources) Start: 08-12-2023 End: 08-15-2023 take 1 capsule by mouth every six hours for pain Fiorinal 325 mg-50 mg-40 mg Cap 1 cap(s), Oral, q6hr for pain for 3 day(s), 12 cap(s), Refill(s) 0, [facility] #[id number], 160, cm, 08/12/23 20:54:00 EDT, Height/Length Dosing, 114.7, kg, 08/12/23 20:54:00 EDT, Weight Dosing Start Date: 08/12/23 Stop Date: 08/15/23 Status: Ordered azithromycin 250 mg Tab 5-day Dose Pack (Z-Ian) (2 sources) Start: 01-23-2024 End: 01-28-2024 azithromycin 250 mg Tab 5-day Dose Pack (Z-Ian) = 1 packet(s), Oral, As Directed, as directed on package labeling, X 5 day(s), # 6 tab(s), Refills(s) 0, Pharmacy: [facility]/pharmacy #[id number], 160, cm, 01/23/24 14:03:00 EDT, Height/Length Dosing, 114.8, kg, 01/23/24 14:03:00 EDT, Weight Dosing Start Date: 01/23/24 Stop Date: 01/28/24 Status: Ordered baclofen 5 mg oral tablet (12 sources) gamma-Aminobutyri c Acid-ergic Agonist Start: 08-14-2023 End: 10-13-2023 take 1 tablet by mouth three times daily as needed for muscle spasms baclofen 5 mg oral tablet 5 mg = 1 tab(s), Oral, TID, take as needed for spasms, X 30 day(s), # 90 tab(s), Refills(s) 1, Pharmacy: [facility]/pharmacy #[id number], 160, cm, 08/14/23 15:27:00 EDT, Height/Length Dosing, 113.5, kg, 08/14/23 15:27:00 EDT, Weight Dosing Start Date: 08/14/23 Stop Date: 10/13/23 Status: Ordered benzocaine 15 mg / menthol 3.6 mg oral lozenge (1 source) Standardized Chemical Allergen Start: 01-27-2024 1 lozenge, Mouth/Throat, Every 2 hour PRN, sore throat, Starting on 01/27/24 at 0415 calcium chloride 0.0014 meq/ml / potassium chloride 0.004 meq/ml / sodium chloride 0.103 meq/ml / sodium lactate 0.028 meq/ml injectable solution (3 sources) Start: 02-06-2024 End: 02-07-2024 take 100 mL intravenously every hour 100 mL/hr, intravenous, Continuous, Starting on Shira 02/06/24 at 1730, For 1 day, Recovery (only) Start: 08-21-2023 take 100 mL intraven ously every hour 100 mL/hr, intravenous, Continuous, Starting on Sat08/21/23 at 1015, Recovery (only) cefdinir 300 mg oral capsule (2 sources) Cephalosporin Antibacterial Start: 02-16-2024 End: 02-23-2024 take 1 capsule by mouth every twelve hours cefdinir 300 mg Cap 300 mg = 1 cap(s), Oral, q12hr, X 7 day(s), # 14 cap(s), Refills(s) 0, Pharmacy: [facility]/pharmacy #[id number], 160, cm, 02/16/24 9:23:00 EST, Height/Length Dosing, 114.8, kg, 02/16/24 9:23:00 EST, Weight Dosing Start Date: 02/16/24 Stop Date: 02/23/24 Status: Ordered cephalexin 500 mg oral capsule (20 sources) Cephalosporin Antibacterial Start: 09-25-2023 End: 10-02-2023 take 1 capsule by mouth every six hours Keflex 500 mg Cap 500 mg = 1 cap(s), Oral, q6hr, X 7 day(s), # 28 cap(s), Refills(s) 0, Pharmacy: [facility]/pharmacy #[id number], 160, cm, 09/25/23 11:43:00 EDT, Height/Length Dosing, 115.3, kg, 09/25/23 11:43:00 EDT, Weight Dosing Start Date: 09/25/23 Stop Date: 10/02/23 Status: Ordered Start: 12-10-2022 End: 01-04-2023 take 1 capsule by mouth every eight hours Cephalexin 500 mg capsule Discontinued 500 MG PO Q8H 12 10December 09, 2022 11:00pm January 04, 2023 2:19pm Start: 08-29-2017 End: 04-01-2018 take 1 capsule by mouth every six hours Cephalexin (Keflex) 500 mg capsule Discontinued 500 MG PO Q6H August 28, 2017 11:00pm April 01, 2018 7:03pm ciprofloxacin 250 mg oral tablet (1 source) Quinolone Antimicrobial Start: 02-20-2024 End: 02-25-2024 take 1 tablet by mouth every twelve hours Cipro 250 mg Tab 250 mg = 1 tab(s), Oral, q12hr, X 5 day(s), # 10 tab(s), Refills(s) 0, Pharmacy: [facility]/pharmacy #[id number], 160, cm, 02/20/24 16:44:00 EST, Height/Length Dosing, 115, kg, 02/20/24 16:44:00 EST, Weight Dosing Start Date: 02/20/24 Stop Date: 02/25/24 Status: Ordered cyclobenzaprine hydrochloride 5 mg oral tablet (20 sources) Muscle Relaxant Start: 02-06-2024 take 2 tablets by mouth three times daily as needed for muscle spasms cyclobenzaprine (Flexeril) 5 mg tablet Indications: Lumbar disc herniation with radiculopathy Take 2 tablets (10 mg) by mouth 3 times a day as needed for muscle spasms. 30 tablet 02/06/2024 3:50 PM EST 02/06/2024 Active Start: 01-25-2024 End: 02-01-2024 take 1 tablet by mouth three times daily at bedtime cyclobenzaprine 5 mg Tab 5 mg = 1 tab(s), Oral, TID, PRN Pain, Take 1 tablet as needed 3 times daily with 1 dose being at bedtime, X 7 day(s), # 21 tab(s), Refills(s) 0, Pharmacy: [facility]/pharmacy #[id number], 160, cm, 01/25/24 15:37:00 EDT, Height/Length Dosing, 114.8, kg, 01/25/24 15:37:00 EDT, Weight Dosing Start Date: 01/25/24 Stop Date: 02/01/24 Status: Ordered Start: 12-30-2023 End: 12-30-2023 take 5 mg by mouth once 5 mg, oral, Once, On 12/30/23 at 1925, For 1 dose Start: 12-04-2023 End: 12-07-2023 take 1 tablet by mouth three times daily cyclobenzaprine (FLEXERIL) 5 mg tablet Take 1 Tab by mouth three times a day for 3 days 9 Tab 12/04/2023 12/07/2023 Active Start: 09-21-2023 End: 01-26-2024 take 1 tablet by mouth three times daily as needed for muscle spasms cyclobenzaprine 10 mg Tab 10 mg = 1 tab(s), Oral, TID, PRN for spasm, # 30 tab(s), Refills(s) 0, Pharmacy: [facility]/pharmacy #[id number], 160, cm, 09/21/23 11:20:00 EDT, Height/Length [...] spasm, # 20 tab(s), Refills(s) 0, Pharmacy: [facility]/pharmacy #[id number], 160, cm, 08/15/23 22:27:00 EDT, Height/Length Dosing, 115.5, kg, 08/15/23 22:27:00 EDT, Weight Dosing Start Date: 08/16/23 Status: Ordered Start: 01-07-2023 End: 06-22-2023 take 1 tablet by mouth three times daily as needed for muscle spasms Cyclobenzaprine 10 mg tablet Discontinued 10 MG PO Three times daily as needed for spasms February 04, 2023 12:00am June 01, 2023 1:54pm Start: 12-23-2022 End: 01-04-2023 take 1 tablet by mouth three times daily as needed for muscle spasms Cyclobenzaprine 10 mg tablet Discontinued 10 MG PO Three times daily as needed for muscle spasm December 23, 2022 11:00pm January 04, 2023 2:20pm Start: 11-06-2022 take 1 tablet by wei th every twenty-four hours Cyclobenzaprine HCl 5 MG 1 tablet at bedtime as needed Orally Once a day for 30 day(s) Oct, Active Start: 10-11-2022 End: 10-25-2022 take 1 tablet by mouth three times daily as needed for muscle spasms Cyclobenzaprine 10 mg tablet Discontinued 10 MG PO Three times daily as needed for muscle spasm October 16, 2022 4:51pm October 25, 2022 10:29pm Start: 08-31-2022 End: 09-18-2022 take 1 tablet by mouth three times daily as needed for muscle spasms Cyclobenzaprine 10 mg tablet Discontinued 10 MG PO Three times daily as needed for Muscle Spasm August 30, 2022 11:00pm September 18, 2022 2:40pm Start: 08-26-2022 End: 09-01-2022 Cyclobenzaprine 5 mg tablet Discontinued MG TABLET August 25, 2022 11:00pm September 01, 2022 1:59pm Start: 08-26-2022 End: 09-01-2022 Cyclobenzaprine Discontinued MG TABLET August 25, 2022 11:00pm September 01, 2022 1:59pm Start: 08-21-2022 take 1 tablet by wei th every twenty-four hours Cyclobenzaprine HCl 5 MG 1 tablet at bedtime as needed Orally Once a day for 30 day(s) July, Active Start: 06-16-2022 End: 08-13-2022 take 1 tablet by mouth three times daily as needed for muscle spasms Cyclobenzaprine 10 mg tablet Discontinued 10 MG PO Three times daily as needed for muscle spasm June 15, 2022 11:00pm August 13, 2022 4:22pm Start: 01-18-2021 take 1 tablet by wei th every eight hours as needed Cyclobenzaprine HCl 5 MG 1 tablet Orally every 8 hours as needed for 30 day(s) Dec, Active diclofenac sodium 0.01 mg/mg topical gel (20 [...] g topically four times daily Diclofenac Sodium 1 % gel Discontinued 4 GM TOPICAL Four times daily June 02, 2021 12:00am January 21, 2022 7:16pm apply to single knee, ankle, foot; for foot includes sole/toes/top of foot Start: 06-02-2021 End: 01-21-2022 apply 4 g topically four times daily Diclofenac Sodium Discontinued 4 GM TOPICAL Four times daily June 02, 2021 12:00am January 21, 2022 7:16pm apply to single knee, ankle, foot; for foot includes sole/toes/top of foot dicyclomine hydrochloride 10 mg oral capsule (20 sources) Anticholinergic Start: 12-24-2023 take 2 capsules by mouth four times daily Bentyl 10 mg Cap 20 mg = 2 cap(s), Oral, QID, # 20 cap(s), Refills(s) 0, Pharmacy: [id number], 160, cm, 12/24/23 14:30:00 EDT, Height/Length Dosing, 115.2, kg, 12/24/23 14:30:00 EDT, Weight Dosing Start Date: 12/24/23 Status: Ordered Start: 06-22-2023 take 1 capsule by [facility] four times daily as needed Bentyl 10 mg Cap 10 mg = 1 cap(s), Oral, QID, PRN Other (see comment), For abdominal cramping, # 12 cap(s), Refills(s) 0, Pharmacy: [facility]/pharmacy #[id number], 160, cm, 06/22/23 14:24:00 EDT, Height/Length Dosing, 118.5, kg, 06/22/23 14:24:00 EDT, Weight Dosing Start Date: 06/22/23 Status: Ordered Start: 06-01-2023 End: 06-26-2023 take 1 capsule by mouth twice daily Dicyclomine 10 mg capsule Discontinued 10 MG PO Twice daily June 01, 2023 12:00am June 26, 2023 3:40pm Start: 03-19-2022 End: 08-26-2022 take 1 tablet by mouth four times daily Dicyclomine 20 mg tablet Discontinued 20 MG PO Four times daily March 19, 2022 12:00am August 26, 2022 2:39pm Start: 03-17-2022 End: 03-29-2022 take 1 tablet by mouth three times daily as needed Dicyclomine 20 mg tablet Discontinued 20 MG PO Three times daily as needed for abdominal discomfort March 17, 2022 12:00am March 29, 2022 1:25pm Start: 03-14-2022 End: 03-29-2022 take 1 capsule by mouth twice daily as needed Dicyclomine 10 mg capsule Discontinued 10 MG PO Twice daily as needed for abdominal discomfort 6 March 14, 2022 7:45pm March 29, 2022 1:25pm diflunisal 500 mg oral tablet (20 sources) Nonsteroidal Anti-inflammatory Drug Start: 09-02-2023 take 1 tablet by mouth every twelve hours diflunisal 500 mg Tab 500 mg = 1 tab(s), Oral, q12hr, # 20 tab(s), Refills(s) 0, Pharmacy: [facility]/pharmacy #[id number], 160, cm, 09/02/23 18:11:00 EDT, Height/Length Dosing, 115.5, kg, 09/02/23 18:11:00 EDT, Weight Dosing Start Date: 09/02/23 Status: Ordered diphenhydrAMINE (17 sources) Histamine-1 Receptor Antagonist Start: 02-06-2024 12.5 mg, intravenous, Once as needed, itching, allergic reaction, Starting on Shira 02/06/24 at 1704, For 1 dose, Recovery (only) Start: 01-04-2024 take 1 capsule by [facility] every six hours as needed 25 mg, oral, Every 6 hours PRN, itching, Starting on 01/04/24 at 1116 Start: 12-13-2023 End: 02-06-2024 take 1 tablet by mouth every six hours diphenhydrAMINE (Sominex) 25 mg tablet Indications: Skin irritation Take 1 tablet (25 mg) by mouth every 6 hours for 5 days. 20 tablet 12/13/2023 02/06/2024 Discontinued (Stop Taking at Discharge) docusate sodium 100 mg oral capsule (13 sources) Start: 01-04-2024 End: 02-06-2024 take 1 capsule by mouth twice daily in the evening docusate sodium (Colace) 100 mg capsule Indications: Left leg weakness Take 1 capsule (100 mg) by mouth 2 times a day. 60 capsule 01/04/2024 1:43 PM EDT 01/04/2024 02/06/2024 Active docusate sodium 50 mg / sennosides, jail 8.6 mg oral tablet (6 sources) Start: 02-06-2024 End: 02-20-2024 take 1 tablet by mouth twice daily in the evening sennosides-docusate sodium (Judy-Colace) 8.6-50 mg tablet Indications: Lumbar disc herniation with radiculopathy Take 1 tablet by mouth 2 times a day for 14 days. 28 tablet 02/06/2024 3:50 PM EST 02/06/2024 02/20/2024 Active Start: 01-27-2024 take 1 tablet by wei th twice daily 1 tablet, oral, 2 times daily, First dose on 01/27/24 at 1100 Start: 08-21-2023 End: 08-28-2023 take 1 tablet by mouth once daily sennosides-docusate sodium (Judy-Colace) 8.6-50 mg tablet Indications: Continuous [...] 12:00am 2 ml droperidol 2.5 mg/ml injection (2 sources) Dopamine-2 Receptor Antagonist Start: 02-06-2024 0.625 mg, intravenous, Once as needed, nausea/vomiting, second line, Starting on Shira 02/06/24 at 1704, For 1 dose, Recovery (only), Monitor QTc while on therapy (2 lead monitoring) Start: 08-21-2023 0.625 mg, intr avenous, Once as needed, nausea/vomiting, second line, Starting on 08/21/23 at 0946, For 1 dose, Recovery (only), Monitor QTc while on therapy (2 lead monitoring) DULoxetine 30 mg delayed release oral capsule (1 source) Serotonin and Norepinephrine Reuptake Inhibitor Start: 02-07-2024 End: 01-28-2024 take 1 capsule by mouth once daily DULoxetine (Cymbalta) [address] capsule Indications: Chronic pain syndrome Take 1 capsule (30 mg) by mouth once daily. Do not crush or chew. Start taking after your surgery. Do not fill before February 07, 2024. 30 capsule 02/07/2024 01/28/2024 Discontinued (Stop Taking at Discharge) Start: 02-07-2024 End: 01-28-2024 take 1 capsule by mouth once daily DULoxetine (Cymbalta) [address] capsule Indications: Chronic pain syndrome Take 1 capsule (30 mg) by mouth once daily. Do not crush or chew. Start taking after your surgery. Do not fill before February 07, 2024. 30 capsule 02/07/2024 01/28/2024 Discontinued (Stop Taking at Discharge) 0.4 ml enoxaparin sodium 100 mg/ml prefilled syringe (2 sources) Low Molecular Weight Heparin Start: 01-06-2024 inject 40 mg by subcutaneous injection every twelve hours 40 mg, subcutaneous, Every 12 hours scheduled, First dose on Sat01/06/24 at 2205 Start: 01-01-2024 inject 40 mg by subc utaneous injection every twelve hours 40 mg, subcutaneous, Every 12 hours scheduled, First dose on Sat01/01/24 at 0900 1 ml fentaNYL 0.05 mg/ml injection (6 sources) Opioid Agonist Start: 08-21-2023 50 mcg, intrav enous, Every 5 min PRN, pain severe (7-10), [...] (SUBLIMAZE) in jection solution 75 mcg FLUoxetine 20 mg oral capsule (20 sources) Serotonin Reuptake Inhibitor Start: 01-27-2024 take 60 mg by mouth once daily 60 mg, oral, Daily, First dose on Sat01/27/24 at 0900 Start: 01-07-2024 take 60 mg by mouth once daily 60 mg, oral, Daily, First dose on Sat01/07/24 at 0900 Start: 01-02-2024 take 60 mg by mouth once daily 60 mg, oral, Daily, First dose on Shira 01/02/24 at 0900 Start: 02-11-2023 take 1 tablet by mouth once da rocio FLUoxetine 60 mg oral tablet See Instructions, TAKE 1 TABLET BY MOUTH EVERY DAY, # 90 tab(s), Refills(s) 1, Pharmacy: [id number], 160, cm, 01/14/24 19:22:00 EDT, Height/Length Dosing, 114.8, kg, 01/14/24 19:22:00 EDT, Weight Dosing Start Date: 01/21/24 Status: Ordered Start: 12-20-2022 End: 01-15-2023 take [...] 60 MG PO Daily June 02, 2021 12:00am Start: 06-02-2021 take 20 mg by mouth once daily Fluoxetine Active 20 MG PO Daily June 02, 2021 12:00am Start: 06-02-2021 take 60 mg by mouth once daily Fluoxetine Active 60 MG PO Daily June 02, 2021 1:00am fluticasone propionate 0.05 mg/actuat metered dose nasal spray (2 sources) Corticosteroid Start: 12-13-2023 Flonase 0.05 m g/inh [place] 2 spray(s), Topical, Daily, 16 gram, Refill(s) 0, each nostril, [id number], 160, cm, 12/13/23 13:44:00 EDT, Height/Length [...] 3 TAB PO Daily May 15, 2023 12:00am September 08, 2023 5:36pm 1 ml hydrALAZINE hydrochloride 20 mg/ml injection (2 sources) Arteriolar Vasodilator Start: 01-07-2024 take 10 mg intravenously every eight hours as needed 10 mg, intravenous, Every 8 hours PRN, SBP > 150, Starting on Sat01/07/24 at 2023 Start: 01-03-2024 take 10 mg intraveno usly every eight hours as needed 10 mg, intravenous, Every 8 hours PRN, SPB > 160, Starting on Sat01/03/24 at 1909 0.5 ml HYDROmorphone hydrochloride 1 mg/ml prefilled syringe (14 sources) Opioid Agonist Start: 02-06-2024 0.5 mg, intrav enous, Every 5 min PRN, pain severe (7-10), first line, Starting on Sat02/06/24 at 1704, Recovery (only), Max total of 4 mg regardless of dose. Start: 02-06-2024 0.25 mg, intra venous, Every 5 min PRN, pain moderate (4-6), first line, Starting on Sat02/06/24 at 1704, Recovery (only), Max total of 4 mg regardless of dose. Start: 01-30-2024 End: 01-30-2024 inject 1 mg by intramuscular injection once 1 mg, intramuscular, Once, On Shira 01/30/24 at 1140, For 1 dose Start: 01-27-2024 take 1 mg intravenou sly every six hours as needed 1 mg, intravenous, Every 6 hours PRN, pain severe (7-10), first line, Starting on Sat01/27/24 at 1028 Start: 01-26-2024 End: 01-27-2024 1 mg, intravenous, Once, On 01/26/24 at 2340, For 1 dose Start: 01-06-2024 take 0.5 mg intraven ously every four hours as needed 0.5 mg, intravenous, Every 4 hours PRN, pain severe (7-10), first line, Starting on Sat01/06/24 at 2143 Start: 01-06-2024 End: 01-06-2024 0.5 mg, intravenous, Once, O n Sat01/06/24 at 1935, For 1 dose Start: 01-03-2024 0.5 mg, intrav enous, Every 3 hours PRN, pain severe (7-10), first line, Starting on Sat01/03/24 at 1215 Start: 01-02-2024 End: 01-03-2024 0.4 mg, intravenous, Every 3 hours PRN, pain severe (7-10), first line, Starting on Sat01/02/24 at 1453 Start: 01-02-2024 End: 01-02-2024 take 0.2 mg intravenously every four hours as needed 0.2 mg, intravenous, Every 4 hours PRN, pain severe (7-10), first line, Starting on Sat01/02/24 at 0945 Start: 01-01-2024 End: 01-01-2024 0.5 mg, intravenous, Once, O n Sat01/01/24 at 2100, For 1 dose Start: 01-01-2024 End: 01-01-2024 1 mg, intravenous, Once, On Sat01/01/24 at 1740, For 1 dose hydrOXYzine hydrochloride 10 mg oral tablet (20 sources) Antihistamine Start: 01-27-2024 Start: 07-17-2023 End: 11-14-2023 hydrOXYzine hydrochloride 25 mg Tab 25 mg = 1 tab(s), Oral, QID, PRN for anxiety, may take 2 at night, 1-2 times daily, X 30 day(s), # 120 tab(s), Refills(s) 3, Pharmacy: [facility]/pharmacy #[id number], 160, cm, 07/17/23 8:06:00 EDT, Height/Length Dosing, 116.8, kg, 07/17/23 8:06:00 EDT, Weight Dosing Start Date: 07/17/23 Stop Date: 11/14/23 Status: Ordered take 1 tablet by wei th three times daily as needed for anxiety hydrOXYzine HCL (Atarax) 25 mg tablet Take 1 tablet (25 mg) by mouth 3 times a day as needed for anxiety. Active ibuprofen 600 mg oral tablet (20 sources) Nonsteroidal Anti-inflammatory Drug Start: 02-09-2024 take 1 tablet by mouth every six hours for pain ibuprofen 600 mg tablet Indications: Postoperative pain after spinal surgery Take 1 tablet (600 mg) by mouth every 6 hours if needed for mild pain (1 - 3) or fever (temp greater than 38.0 C). 30 tablet 02/09/2024 Active Start: 09-10-2023 take 1 tablet by wei th three times daily as needed for pain ibuprofen (ADVIL;MOTRIN) 600 MG tablet Take 1 tablet by mouth 3 times daily as needed for Pain 30 tablet 0 09/10/2023 Active Start: 07-17-2023 End: 12-26-2023 take 1 tablet by mouth three times daily ibuprofen 800 mg Tab 800 mg = 1 tab(s), Oral, TID, # 30 tab(s), Refills(s) 0, Pharmacy: [facility]/pharmacy #[id number], 160, cm, 07/17/23 8:06:00 EDT, Height/Length Dosing, 116.8, kg, 07/17/23 8:06:00 EDT, Weight Dosing Start Date: 07/17/23 Status: Ordered Start: 06-27-2023 take 1 tablet by wei th every six hours ibuprofen 600 mg Tab 600 mg = 1 tab(s), Oral, q6hr, Pt is to start this after she has completed the course of prednisone, # 40 tab(s), Refills(s) 0, Pharmacy: [facility]/pharmacy #[id number], 160, cm, 06/27/23 11:54:00 EDT, Height/Length Dosing, 117.2, kg, 06/27/23 11:54:00 EDT, Weight Dosing Start Date: 06/27/23 Status: Ordered Start: 02-21-2023 take 1 tablet by wei th every eight hours as needed for pain Ibuprofen 800 mg tablet Active 800 MG PO Q8H as needed for pain February 21, 2023 5:15pm Start: 01-12-2023 End: 06-01-2023 take 1 tablet by mouth three times daily as needed for pain Ibuprofen 800 mg tablet Discontinued 800 MG PO Three times daily as needed for pain January 11, 2023 11:00pm June 01, 2023 1:54pm Start: 08-31-2022 End: 09-01-2022 take 1 tablet by mouth three times daily as needed for pain Ibuprofen 800 mg tablet Discontinued 800 MG PO Three times daily as needed for Pain August 30, 2022 11:00pm September 01, 2022 1:59pm Start: 03-19-2022 End: 03-29-2022 take 1 tablet by mouth three times daily as needed for pain Ibuprofen 800 mg tablet Discontinued 800 MG PO Three times daily as needed for Pain March 19, 2022 12:00am March 29, 2022 1:25pm Start: 01-21-2022 End: 09-28-2022 take 1 tablet by mouth every six hours as needed for pain Ibuprofen 800 mg tablet Discontinued 800 MG PO Q6H as needed for Pain January 20, 2022 11:00pm September 28, 2022 4:16pm Start: 05-10-2020 End: 06-30-2020 take 1 tablet by mouth three times daily as needed for pain Ibuprofen 800 mg tablet Discontinued 800 MG PO Three times daily as needed for pain May 10, 2020 10:42am June 30, 2020 2:39pm Start: 01-13-2018 take 1 tablet by wei th every eight hours ibuprofen 600 mg Tab 600 mg = 1 tab(s), Oral, q8hr, # 60 tab(s), Refills(s) 0 Start Date: 01/13/18 Status: Ordered Start: 02-01-2017 End: 08-29-2017 take 1 tablet by mouth three times daily Ibuprofen 800 mg tablet Discontinued 800 MG PO Three times daily February 01, 2017 12:00am August 29, 2017 1:32pm ketoconazole 20 mg/ml topical cream (3 sources) Azole Antifungal Start: 10-26-2023 End: 11-23-2023 ketoconazole Top 2% Crm 1 kennedi, Topical, BID for 28 day(s), 60 gm, Refill(s) 0, [facility]/pharmacy #[id number], 160, cm, 10/26/23 2:47:00 EDT, Height/Length Dosing, 116.7, kg, 10/26/23 2:47:00 EDT, Weight Dosing Start Date: 10/26/23 Stop Date: 11/23/23 Status: Ordered lidocaine 0.04 mg/mg medicated patch (20 sources) Antiarrhythmic, Amide Local Anesthetic Start: 01-26-2024 apply 1 dose transdermal route once daily 1 patch, transdermal, Administer over 12 Hours, Daily, First dose on Sat01/27/24 at 1115, Apply to lumbar spine area; Patch will remain on for 12 hours, then removed for [address] patch directly over any surgical incisions or wounds. Start: 01-07-2024 Start: 01-02-2024 apply 1 dose transde rmal route once daily 1 patch, transdermal, Administer over 12 Hours, Daily, First dose on Sat01/02/24 at 0900, Apply to lower back to the left of the spine Start: 12-30-2023 1 patch, trans dermal, Administer over 12 Hours, Once, On Sat12/30/23 at 1925, For 1 dose, Apply to back. Patch will remain on for 12 hours, then removed for [address] patch directly over any surgical incisions or wounds. Start: 12-21-2023 End: 01-08-2024 apply 1 dose transdermal route every twelve hours, then apply 1 dose transdermal route every twelve hours lidocaine (Lidoderm) 5 % patch Indications: Acute exacerbation of chronic low back pain Place 1 patch over 12 hours on the skin once daily. Remove & discard patch within 12 hours or as directed by . 15 patch 12/30/2023 01/08/2024 Discontinued (Stop Taking at Discharge) Start: 09-02-2023 lidocaine Top 5% film Patch 1 patch(es), Topical, Daily, 7 patch(es), Refill(s) 0, apply 12 hours on and 12 hours off daily, [id number], 160, cm, 01/25/24 15:37:00 EDT, Height/Length Dosing, 114.8, kg, 01/25/24 15:37:00 EDT, Weight Dosing Start Date: 01/25/24 Status: Ordered Start: 08-09-2023 End: 08-10-2023 Lidocaine (ASPERCREME) 4 % t opical patch 1 Patch Start: 05-20-2023 End: 05-20-2023 lidocaine (Xylocaine) 10 mg/ mL (1 %) injection 0.5 mL Start: 04-28-2023 End: 05-13-2023 apply 1 dose topically once daily lidocaine patch (LID ODERM) 5 % topical patch Apply 1 Patch daily for 15 doses 15 Patch 0 04/28/2023 05/13/2023 Active Start: 04-27-2023 Lidocaine (ASP ERCREME) 4 % topical patch 2 Patch Start: 12-23-2022 Lidoderm 5% Pa tch 1 patch(es), Topical, Daily, 7 EA, Refill(s) 0, apply 12 hours on and 12 hours off daily, [facility]/pharmacy #[id number], 160, cm, 01/12/23 20:29:00 EDT, Height/Length Dosing, 114.3, kg, 01/12/23 20:29:00 EDT, Weight Dosing Start Date: 01/12/23 Status: Ordered Start: 08-02-2022 End: 10-16-2022 apply 1 dose topically every twenty-four hours Lidocaine 5 % adhesive patch,medicated Discontinued 1 PATCH TOPICAL Q24H 15 15 August 01, 2022 11:00pm October 16, 2022 3:13pm leave on most painful area for up to 12 hrs Medrol Dose Pack as directed (5 sources) Start: 01-18-2021 Medrol Dose Pa ck as directed as directed orally as directed Dec, Active melatonin 3 mg oral tablet (2 sources) Start: 01-27-2024 take 3 mg by mouth once daily as needed for sleep 3 mg, oral, Nightly PRN, sleep, Starting on 01/27/24 at 0415 Start: 01-02-2024 End: 01-02-2024 take 6 mg by mouth once 6 mg, oral, Once, On Shira 01/15 at 0230, For 1 dose methylPREDNISolone 4 mg oral tablet (20 sources) Corticosteroid Start: 08-30-2023 End: 09-05-2023 Medrol 4 mg Tab = 1 packet(s), Oral, As Directed, as directed on package labeling, X 6 day(s), # 21 tab(s), Refills(s) 0, Pharmacy: [facility]/pharmacy #[id number], 160, cm, 08/30/23 18:16:00 EDT, Height/Length Dosing, 115.5, kg, 08/30/23 18:16:00 EDT, Weight Dosing Start Date: 08/30/23 Stop Date: 09/05/23 Status: Ordered Start: 04-10-2023 End: 04-16-2023 Medrol Dosepack 4 mg Tab = 1 packet(s), Oral, As Directed, as directed on package labeling, X 6 day(s), # 21 tab(s), Refills(s) 0, Pharmacy: [facility]/pharmacy #[id number], 160, cm, 04/10/23 22:09:00 EST, Height/Length Dosing, 114.5, kg, 04/10/23 22:09:00 EST, Weight Dosing Start Date: 04/10/23 Stop Date: 04/16/23 Status: Ordered Start: 01-10-2023 End: 01-16-2023 Medrol 4 mg Tab = 1 packet(s ), Oral, As Directed, as directed on package labeling, X 6 day(s), # 21 tab(s), Refills(s) 0, Pharmacy: [facility]/pharmacy #[id number], 160, cm, 01/10/23 10:36:00 EDT, Height/Length Dosing, 115.7, kg, 01/10/23 10:36:00 EDT, Weight Dosing Start Date: 01/10/23 Stop Date: 01/16/23 Status: Ordered Start: 10-11-2022 End: 10-25-2022 Methylprednisolone 4 mg tabl ets,dose pack Discontinued 0 PO .COMPLEX October 10, 2022 11:00pm [...] package directions Start: 08-06-2022 End: 08-13-2022 Methylprednisolone 4 mg tabl ets,dose pack Discontinued 0 PO .COMPLEX August 05, 2022 11:00pm [...] q6hr, # 12 tab(s), Refills(s) 0, Pharmacy: [facility]/pharmacy #[id number], 160, cm, 08/12/23 20:54:00 EDT, Height/Length Dosing, 114.7, kg, 08/12/23 20:54:00 EDT, Weight Dosing Start Date: 08/12/23 Status: Ordered Start: 03-26-2023 End: 03-31-2023 take 1 tablet by mouth three times daily Reglan 10 mg Tab 10 mg = 1 tab(s), Oral, TID, X 5 day(s), # 15 tab(s), Refills(s) 0, Pharmacy: [facility]/pharmacy #[id number], 160, cm, 03/26/23 10:58:00 EST, Height/Length Dosing, 110, kg, 03/26/23 10:58:00 EST, Weight Dosing Start Date: 03/26/23 Stop Date: 03/31/23 Status: Ordered Naloxone (20 sources) Opioid Antagonist Start: 01-06-2024 Start: 10-03-2023 End: 02-06-2024 naloxone (Narcan) 4 mg/0.1 m L nasal spray Indications: Chronic back pain greater than 3 months duration , Neuropathic pain , Status post insertion of spinal cord stimulator , Acute post-operative pain Administer 1 spray (4 mg) into affected nostril(s) if needed for opioid reversal. May repeat every 2-3 minutes if needed, alternating nostrils, until medical assistance becomes available. 2 each 10/03/2023 02/06/2024 Discontinued (Stop Taking at Discharge) Start: 10-03-2023 naloxone (Narc an) 4 mg/0.1 mL nasal spray Indications: Chronic back pain greater than 3 months duration , Neuropathic pain , Status post insertion of spinal cord stimulator , Acute post-operative pain Administer 1 spray (4 mg) into affected nostril(s) if needed for opioid reversal. May repeat every 2-3 minutes if needed, alternating nostrils, until medical assistance becomes available. 2 each 10/03/2023 Active Start: 01-15-2023 End: 01-15-2024 naloxone (Narcan) 4 mg/0.1 m L nasal spray Indications: Chronic, continuous use of opioids Administer 1 spray (4 mg) into affected nostril(s) if needed for opioid reversal. May repeat every 2-3 minutes if needed, alternating nostrils, until medical assistance becomes available. 2 each 01/15/2023 08/21/2023 Discontinued (Stop Taking at Discharge) 2 ml ondansetron 2 mg/ml injection (20 sources) Serotonin-3 Receptor Antagonist Start: 02-06-2024 4 mg, intravenous, O nce as needed, nausea/vomiting, first line, Starting on Shira 02/06/24 at 1704, For 1 dose, Recovery (only), When administering via IV Push, administer over 3-5 minutes. Start: 01-30-2024 End: 01-30-2024 take 4 mg by mouth once 4 mg, oral, Once, On Shira 01/30/24 at 1140, For 1 dose Start: 01-27-2024 take 4 mg intravenou sly every four hours as needed 4 mg, intravenous, Every 4 hours PRN, nausea/vomiting, first line, Starting on Sat01/27/24 at 0415, When administering via IV Push, administer over 3-5 minutes. Start: 01-10-2024 End: 01-10-2024 4 mg, intravenous, Once, On Sat01/10/24 at 2000, For 1 dose, When administering via IV Push, administer over 3-5 minutes. Start: 01-06-2024 take 4 mg intravenou sly every six hours as needed 4 mg, intravenous, Every 6 hours PRN, nausea/vomiting, first line, Starting on Sat01/06/24 at 2144, When administering via IV Push, administer over 3-5 minutes. Start: 12-21-2023 End: 01-04-2024 take 1 tablet by mouth every eight hours for nausea ondansetron ODT (Zofran-ODT) 4 mg disintegrating tablet Indications: Acute exacerbation of chronic low back pain , Contusion of lower back, initial encounter Take 1 tablet (4 mg) by mouth every 8 hours if needed for nausea or vomiting for up to 7 days. 20 tablet 12/21/2023 01/04/2024 Discontinued (Stop Taking at Discharge) Start: 08-21-2023 4 mg, intraven ous, Once as needed, nausea/vomiting, first line, Starting on Sat08/21/23 at 0946, For 1 dose, Recovery (only), When administering via IV Push, administer over 3-5 minutes. Start: 06-08-2023 End: 06-08-2023 ondansetron (ZOFRAN ODT) RAP ID DISSOLVING tablet 4 mg Start: 06-01-2023 take 1 tablet by wei th every eight hours Ondansetron 4 mg tablet,disintegrating Active 4 MG PO Every 8 hours 9 June 01, 2023 12:00am Start: 03-11-2023 take 1 tablet by wei [...] 4 mg Start: 11-14-2021 End: 09-05-2022 take 1 tablet by mouth every eight hours as needed for nausea and vomiting Ondansetron 4 mg tablet,disintegrating Discontinued 4 MG PO Q8H as needed for nausea and vomiting 6 January 20, 2022 11:00pm March 29, 2022 1:25pm Start: 11-14-2021 take 4 mg by mouth e very eight hours Ondansetron Active 4 MG PO Q8H 6 November 14, 2021 12:00am Start: 11-14-2021 take 4 mg by mouth e very eight hours Ondansetron Active 4 MG PO Q8H 6 2 November 14, 2021 12:00am Start: 02-02-2020 End: 06-30-2020 take 1 tablet by mouth every eight hours Ondansetron 4 mg tablet,disintegrating Discontinued 4 MG PO Q8H 9 February 02, 2020 12:00am June 30, 2020 2:39pm ondansetron ODT (Zofran-ODT) disintegrating tablet 4 mg (1 source) Start: 01-01-2024 take 1 tablet by mouth every eight hours as needed ondansetron ODT (Zofran-ODT) disintegrating tablet 4 mg oxygen (O2) therapy (2 sources) Start: 02-06-2024 inhalation, Co ntinuous PRN - O2/gases, other, Starting on Shira 02/06/24 at 1704, Recovery (only), Device: Nasal Cannula, Rate in liters per minute: 2 LPM, Keep O2 Sat Above: 92% Start: 08-21-2023 inhalation, Co ntinuous - Inhalation, First dose on Sat08/21/23 at 1015, Recovery (only), Device: Nasal Cannula, Rate in liters per minute: Other, Custom Value: 1-6 LPM, Keep O2 Sat Above: 92% pantoprazole 40 mg delayed release oral tablet (3 sources) Proton Pump Inhibitor Start: 01-27-2024 take 40 mg by mouth once daily before breakfast 40 mg, oral, Daily before breakfast, First dose on Sat01/27/24 at 0700, Do not crush, chew, or split. Start: 01-07-2024 take 40 mg by mouth once daily before breakfast 40 mg, oral, Daily before breakfast, First dose on Sat01/07/24 at 0700, Do not crush, chew, or split. Start: 01-02-2024 take 40 mg by mouth once daily before breakfast 40 mg, oral, Daily before breakfast, First dose on Sat01/02/24 at 0700, Do not crush, chew, or split. polyethylene glycol 3350 [id number] mg powder for oral solution (3 sources) Osmotic Laxative Start: 01-27-2024 take 17 g by mouth every twenty-four hours as needed 17 g, oral, Daily PRN, constipation, Starting on Sat01/27/24 at 1030 Start: 01-02-2024 17 g, oral, Da rocio, First dose on Sat01/02/24 at 0900, Bowel Regimen - for prevention of constipation. polyvinyl alcohol 0.014 ml/ml / povidone 6 mg/ml ophthalmic solution (1 source) Start: 01-27-2024 1 drop, Both E yes, As needed, dry eyes, Starting on Sat01/27/24 at 0415 predniSONE 20 mg oral tablet (20 sources) Start: 02-14-2024 take 3 tablets by mouth once daily predniSONE 20 mg Tab 3, Oral, Daily, # 15 tab(s), Refills(s) 0, Pharmacy: [facility]/pharmacy #[id number], 160, cm, 02/14/24 12:22:00 EST, Height/Length Dosing, 114.8, kg, 02/14/24 12:22:00 EST, Weight Dosing Start Date: 02/14/24 Status: Ordered Start: 01-25-2024 take 1 tablet by wei th once daily predniSONE 10 mg Tab 10 mg = 1 tab(s), Oral, As Directed, Take 3 tabs by mouth daily x3 days, then 2 tabs daily x3 days, then 1 tab daily x3 days., # 18 tab(s), Refills(s) 0, Pharmacy: [facility]/pharmacy #[id number], 160, cm, 01/25/24 15:37:00 EDT, Height/Length Dosing, 114.8, kg, 01/25/24 15:37:00 EDT, Weight Dosing Start Date: 01/25/24 Status: Ordered Start: 01-23-2024 End: 01-28-2024 take 1 tablet by mouth once daily predniSONE 50 mg Tab 50 mg = 1 tab(s), Oral, Daily, X 5 day(s), # 5 tab(s), Refills(s) 0, Pharmacy: [facility]/pharmacy #[id number], 160, cm, 01/23/24 14:03:00 EDT, Height/Length Dosing, 114.8, kg, 01/23/24 14:03:00 EDT, Weight Dosing Start Date: 01/23/24 Stop Date: 01/28/24 Status: Ordered Start: 01-01-2024 End: 01-01-2024 take 20 mg by mouth once 20 mg, oral, Once, On Sat at 1245, For 1 dose Start: 12-13-2023 predniSONE 10 mg Tab = 1 -, Oral, As Directed, Take 3 tabs by mouth daily x3 days, then 2 tabs daily x3 days, then 1 tab daily x3 days., # 18 tab(s), Refills(s) 0, Pharmacy: [facility] #[id number], 160, cm, 12/13/23 13:44:00 EDT, Height/Length Dosing, 115.2, kg, 12/13/23 13:44:00 EDT, Weight Dosing Start Date: 12/13/23 Status: Ordered Start: 06-27-2023 predniSONE 10 mg Tab = 1 -, Oral, As Directed, Take 3 tabs by mouth daily x3 days, then 2 tabs daily x3 days, then 1 tab daily x3 days., # 18 tab(s), Refills(s) 0, Pharmacy: [facility]/pharmacy #[id number], 160, cm, 06/27/23 11:54:00 EDT, Height/Length Dosing, 117.2, kg, 06/27/23 11:54:00 EDT, Weight Dosing Start Date: 06/27/23 Status: Ordered Start: 06-11-2023 End: 06-16-2023 take 1 tablet by mouth once daily predniSONE 50 mg Tab 50 mg = 1 tab(s), Oral, Daily, X 5 day(s), # 5 tab(s), Refills(s) 0, Pharmacy: [facility]/pharmacy #[id number], 160, cm, 06/11/23 19:00:00 EDT, Height/Length [...] Status: Ordered Start: 08-31-2022 End: 09-01-2022 Prednisone 10 mg tablet Disc ontinued 0 MG .ROUTE .COMPLEX August 30, 2022 11:00pm September 01, 2022 1:59pm 6 tabs for 3 days 4 tabs for 3 days 2 tabs for 3 days 1 tabs for 3 days Start: 08-31-2022 End: 09-01-2022 Prednisone Discontinued 0 MG .ROUTE .COMPLEX August 30, 2022 11:00pm September 01, 2022 1:59pm 6 tabs for 3 days 4 tabs for 3 days 2 tabs for 3 days 1 tabs for 3 days Start: 08-21-2022 predniSONE 10 MG Take 3 tablets by mouth for 3 days then 2 tablets by mouth for 3 days then 1 tablet by mouth for 3 days Orally Once a day for July, Active Start: 06-16-2022 End: 08-06-2022 take 1 tablet by mouth once daily Prednisone 50 mg tablet Discontinued 50 MG PO Daily 4 June 15, 2022 11:00pm August 06, 2022 5:45pm Start: 06-02-2021 End: 01-21-2022 take 1 tablet by mouth once daily at mealtime Prednisone 50 mg tablet Discontinued 50 MG PO Daily 4 July 24, 2021 3:40pm January 21, 2022 7:16pm administer with food or milk Start: 01-08-2021 End: 04-27-2021 take 3 tablets by mouth once daily at mealtime Prednisone 20 mg tablet Discontinued 60 MG PO Daily January 07, 2021 11:00pm April 27, 2021 11:57am administer with food or milk Start: 01-08-2021 End: 04-27-2021 take 60 mg by mouth once daily at mealtime Prednisone Discontinued 60 MG PO Daily January 07, 2021 11:00pm April 27, 2021 11:57am administer with food or milk Start: 02-09-2020 End: 06-30-2020 take 3 tablets by mouth once daily Prednisone 20 mg tablet Discontinued 60 MG PO Daily 15 February 09, 2020 12:00am June 30, 2020 2:39pm Start: 02-09-2020 End: 06-30-2020 take 60 mg by mouth once daily Prednisone Discontinued 60 MG PO Daily 15 February 09, 2020 12:00am June 30, 2020 2:39pm Start: 05-10-2018 End: 05-15-2018 take 3 tablets by mouth once daily Prednisone 20 mg tablet Discontinued 60 MG PO Daily 15 May 10, 2018 12:00am May 14, 2018 12:00am May 15, 2018 12:01am Start: 05-10-2018 End: 05-15-2018 take 60 mg by mouth once daily Prednisone Discontinued 60 MG PO Daily 15 May 10, 2018 12:00am May 15, 2018 12:01am pregabalin 50 mg oral capsule (8 sources) Start: 07-15-2023 End: 09-13-2023 take 1 capsule by mouth twice daily pregabalin 50 mg Cap 50 mg = 1 cap(s), Oral, BID, X 30 day(s), # 60 cap(s), Refills(s) 1, Pharmacy: [facility]/pharmacy #[id number], 160, cm, 07/15/23 13:55:00 EDT, Height/Length Dosing, 116.5, kg, 07/15/23 13:55:00 EDT, Weight Dosing Start Date: 07/15/23 Stop Date: 09/13/23 Status: Ordered Prochlorperazine (1 source) Phenothiazine Start: 01-02-2024 take 1 tablet by mouth every six hours as needed prochlorperazine (Compazine) tablet 10 mg promethazine hydrochloride 25 mg rectal suppository (8 sources) Phenothiazine Start: 04-30-2023 take 25 mg rectal route every six hours as needed for nausea Phenergan 25 mg Supp 25 mg = 1 supp, Rectal, q6hr, PRN Nausea/Vomiting, # 6 EA, Refills(s) 0, Pharmacy: [facility]/pharmacy #[id number], 160, cm, 04/30/23 17:09:00 EST, Height/Length Dosing, 114, kg, 04/30/23 17:09:00 EST, Weight Dosing Start Date: 04/30/23 Status: Ordered Robaxin-750 (1 source) Robaxin-750 Acti ve simethicone 80 mg chewable tablet (20 sources) Start: 01-27-2024 take 80 mg by mouth four times daily as needed 80 mg, oral, 4 times daily PRN, flatulence, Starting on Sat01/27/24 at 0415 Start: 03-14-2022 End: 09-05-2022 take 1 capsule by mouth once daily as needed Simethicone 250 mg capsule Discontinued 250 MG PO Daily as needed for abdominal distention 7 March 14, 2022 12:00am September 05, 2022 2:33pm sodium chloride 0.111 meq/ml nasal spray (4 sources) Start: 01-27-2024 1 spray, Each Nostril, As needed, congestion, Starting on Sat01/27/24 at 0415 Start: 12-04-2023 End: 12-04-2023 IV Push, TO [...] for 7 day(s), 14 tab(s), Refill(s) 0, [facility]/pharmacy #[id number], 160, cm, 09/25/23 11:43:00 EDT, Height/Length Dosing, 115.3, kg, 09/25/23 11:43:00 EDT, Weight Dosing Start Date: 09/25/23 Stop Date: 10/02/23 Status: Ordered Start: 04-01-2018 End: 04-11-2018 take 1 tablet by mouth twice daily Sulfamethoxazole-Trimethoprim (Bactrim D s) 800-160 mg tablet Discontinued 1 TAB PO Twice daily April 01, 2018 12:00am April 11, 2018 7:03pm tiZANidine 2 mg oral tablet (20 sources) Central alpha-2 Adrenergic Agonist Start: 02-04-2024 End: 02-11-2024 take 1 tablet by mouth every eight hours tiZANidine 2 mg Tab 2 mg = 1 tab(s), Oral, q8hr, X 7 day(s), # 21 tab(s), Refills(s) 0, Pharmacy: [facility]/pharmacy #[id number], 160, cm, 02/04/24 17:06:00 EST, Height/Length Dosing, 114.8, kg, 02/04/24 17:06:00 EST, Weight Dosing Start Date: 02/04/24 Stop Date: 02/11/24 Status: Ordered Start: 01-01-2024 End: 01-01-2024 take 4 mg by mouth once 4 mg, oral, Once, On 12/16 at 1245, For 1 dose Start: 12-26-2023 End: 01-02-2024 take 1 tablet by mouth every eight hours tiZANidine 2 mg Tab 2 mg = 1 tab(s), Oral, q8hr, X 7 day(s), # 21 tab(s), Refills(s) 0, Pharmacy: [facility] #[id number], 160, cm, 12/26/23 18:17:00 EDT, Height/Length Dosing, 114.8, kg, 12/26/23 18:17:00 EDT, Weight Dosing Start Date: 12/26/23 Stop Date: 01/02/24 Status: Ordered Start: 11-27-2023 End: 12-04-2023 take 1 tablet by mouth every eight hours tiZANidine 2 mg Tab 2 mg = 1 tab(s), Oral, q8hr, X 7 day(s), # 21 tab(s), Refills(s) 0, Pharmacy: [facility]/pharmacy #[id number], 160, cm, 11/27/23 17:53:00 EDT, Height/Length Dosing, 115.5, kg, 11/27/23 17:53:00 EDT, Weight Dosing Start Date: 11/27/23 Stop Date: 12/04/23 Status: Ordered Start: 06-27-2023 take 1 tablet by wei th every six hours as needed for pain tiZANidine 4 mg Tab 4 mg = 1 tab(s), Oral, q6hr, PRN Muscle pain, # 40 tab(s), Refills(s) 0, Pharmacy: [facility]/pharmacy #[id number], 160, cm, 06/27/23 11:54:00 EDT, Height/Length Dosing, 117.2, kg, 06/27/23 11:54:00 EDT, Weight Dosing Start Date: 06/27/23 Status: Ordered Start: 05-26-2023 End: 05-31-2023 take 1 tablet by mouth every eight hours Zanaflex 4 mg Tab 4 mg = 1 tab(s), Oral, q8hr, X 5 day(s), # 15 tab(s), Refills(s) 0, Pharmacy: [facility]/pharmacy #[id number], 160, cm, 05/26/23 19:39:00 EST, Height/Length Dosing, 120, kg, 05/26/23 19:39:00 EST, Weight Dosing Start Date: 05/26/23 Stop Date: 05/31/23 Status: Ordered End: 02-06-2024 take 1 capsule by mouth three times daily tiZANidine (Zanaflex) 2 mg capsule Take 1 capsule (2 mg) by mouth 3 times a day. 02/06/2024 Discontinued (Stop Taking at Discharge) topiramate 25 mg oral tablet (20 sources) Start: 01-27-2024 End: 02-06-2024 take 1 tablet by mouth once daily at bedtime, then take 1 tablet by mouth twice daily topiramate (Topamax) 25 mg tablet Indications: Chronic pain syndrome Take 1 tablet (25 mg) by mouth once daily at bedtime for 2 days, THEN 1 tablet (25 mg) 2 times a day for 7 days. 16 tablet 01/28/2024 11:14 AM EST 01/28/2024 Active Start: 01-21-2022 End: 06-01-2023 take 1 tablet by mouth twice daily Topiramate (Topamax) 100 mg tablet Discontinued 100 MG PO Twice daily January 20, 2022 11:00pm June 01, 2023 1:55pm Start: 01-21-2022 take 100 mg by mouth once sha y Topiramate Active 100 MG PO Daily January 21, 2022 12:00am traMADol hydrochloride 50 mg oral tablet (20 sources) Opioid Agonist Start: 05-15-2023 take 1 tablet by mouth every six hours as needed for pain Tramadol 50 mg tablet Active 50 MG PO Every 6 hours as needed for pain 11 10May 15, 2023 12:00am Dispense quantity of twenty tablets. Dx code [...] Nausea/Vomiting, # 12 tab(s), Refills(s) 0, Pharmacy: [facility]/pharmacy #[id number], 160, cm, 06/22/23 14:24:00 EDT, Height/Length Dosing, 118.5, kg, 06/22/23 14:24:00 EDT, Weight Dosing Start Date: 06/22/23 Status: Ordered Start: 05-14-2023 take 1 tablet by wei th three times daily Zofran ODT 4 mg Tab-Dis 4 mg = 1 tab(s), Oral, TID, # 15 tab(s), Refills(s) 0, [id number], cm, 05/14/23 10:27:00 EST, Height/Length Dosing, 115, kg, 05/14/23 10:27:00 EST, Weight Dosing Start Date: 05/14/23 Status: Ordered Start: 04-30-2023 take 1 tablet by [facility] every eight hours Zofran ODT 4 mg Tab-Dis 4 mg = 1 tab(s), Oral, q8hr, # 12 tab(s), Refills(s) 0, [facility] [facility]/pharmacy #[id number], 160, cm, 04/30/23 17:09:00 EST, Height/Length Dosing, 114, kg, 04/30/23 17:09:00 EST, Weight Dosing Start Date: 04/30/23 Status: Ordered Start: 01-02-2023 take 1 tablet by [facility] every eight hours as needed for nausea Zofran ODT 4 mg Tab-Dis 4 mg = 1 tab(s), Oral, q8hr, PRN Nausea/Vomiting, # 12 tab(s), Refills(s) 0, [id number], cm, 01/02/23 16:09:00 EDT, Height/Length Dosing, 114.2, kg, 01/02/23 16:09:00 EDT, Weight Dosing Start Date: 01/02/23 Status: Ordered Completed/Discontinued Medications Medication Drug Class(es) Dates Sig (Normalized) Sig (Original) azithromycin 250 mg oral tablet (20 sources) Macrolide Antimicrobial Start: 02-14-2024 take 1 tablet by mouth once daily azithromycin 250 mg Tab 250 mg, Oral, As Directed, Take two tabs by mouth on day one, then one tab daily, # 6 tab(s), Refills(s) 0, [id number], cm, 02/14/24 12:22:00 EST, Height/Length Dosing, 114.8, kg, 02/14/24 12:22:00 EST, Weight Dosing Start Date: 02/14/24 Status: Ordered Start: 02-09-2020 End: 06-30-2020 take 2-5 tablets by mouth once daily Azithromycin (Zithromax Z-Ian) 250 mg tablet Discontinued 0 PO .COMPLEX 6 February 09, 2020 12:00am June 30, 2020 2:39pm take 500 mg today (day 1), then 250 mg for 4 days (days 2-5) benzonatate 200 mg oral capsule (20 sources) Non-narcotic Antitussive Start: 07-24-2021 End: 01-21-2022 take 1 capsule by mouth three times daily as needed for cough Benzonatate 200 mg capsule Discontinued 200 MG PO Three times daily as needed for cough October 17, 2021 11:00pm January 21, 2022 7:15pm cetirizine hydrochloride 10 mg oral tablet (20 sources) Histamine-1 Receptor Antagonist Start: 10-11-2022 End: 11-29-2022 take 1 tablet by mouth once daily Cetirizine 10 mg tablet Discontinued 10 MG PO Daily October 10, 2022 11:00pm November 29, 2022 2:26pm chlorhexidine gluconate 40 mg/ml medicated liquid soap (20 sources) Start: 01-29-2024 End: 02-06-2024 chlorhexidine (Hibiclens) 4 % external liquid Indications: Lumbar disc herniation with radiculopathy , Preoperative examination Apply 1 Application topically once daily for 5 days. Use per CPM/PAT provided instructions 01/29/2024 02/06/2024 Discontinued (Stop Taking at Discharge) Start: 01-29-2024 End: 02-06-2024 take 15 mL by mouth once daily chlorhexidine (Peridex) 0.12 % solution Indications: surgery Use 15 mL in the mouth or throat once daily for 2 doses. 30 mL 01/29/2024 02/06/2024 Discontinued (Stop Taking at Discharge) Start: 01-22-2024 End: 01-24-2024 take 15 mL by mouth once daily chlorhexidine (Peridex) 0.12 % solution Indications: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 Onset: 4 Episodic Other injuries and conditions due to external causes (17 sources) Contusion; Translations: [Other injury of unspecified body region, initial encounter] 04-12-2023 Episodic Other injuries and conditions due to external causes (1 source) Injury of head; Translations: [Unspecified injury of head, initial encounter] Onset: Episodic Other injuries and conditions due to external causes (1 source) Traumatic AND/OR non-traumatic injury; Translations: [Other injury of unspecified body region, initial encounter] Onset: 4 Episodic Other injuries and conditions due to external causes (2 sources) Unspecified injury of head, initial encounter; Translations: [Unspecified injury of head, initial encounter] Onset: 4 Episodic Other liver diseases (20 sources) Disease of liver 05-26-2023 Chronic Comment on above: stg 3 Outside Source Comme nt: Comment on above: stg 3 Other liver diseases (18 sources) Hepatic fibrosis; Translations: [Hepatic fibrosis, advanced fibrosis] Onset: 4 12-24-2023 Chronic Other liver diseases (20 sources) Enzyme level - finding; Translations: [Elevated transaminase measurement] 11-13-2021 Episodic Other lower respiratory disease (1 source) Dyspnea; Translations: [Shortness of breath] Onset: 4 Episodic Other lower respiratory disease (1 source) Cough; Translations: [Cough, unspecified] Onset: 4 Episodic Other nervous system disorders (20 sources) Chronic pain; Translations: [Other chronic pain] Onset: 3 Chronic Other nervous system disorders (18 sources) Other chronic pain; Translations: [Other chronic pain] Onset: 3 Chronic Other nervous system disorders (2 sources) Chronic back pain greater than three months duration 01-08-2024 Chronic Other nervous system disorders (9 sources) Chronic pain syndrome; Translations: [Chronic pain syndrome] Onset: 4 01-28-2024 Chronic Other nervous system disorders (1 source) Chronic pain syndrome; Translations: [Chronic pain syndrome] Onset: 4 Chronic Other nervous system disorders (1 source) Paresthesia; Translations: [Paresthesia of skin] Onset: 3 Episodic Other nervous system disorders (1 source) Finding of sensation of lower limb; Translations: [Other disturbances of skin sensation] 01-10-2024 Episodic Other nervous system disorders (2 sources) Other disturbances of skin sensation; Translations: [Other disturbances of skin sensation] Onset: 4 Episodic Other nervous system disorders (8 sources) Other acute postprocedural pain; Translations: [Other acute postprocedural pain] Onset: 4 Episodic Other nervous system disorders (1 source) Postoperative pain ; Translations: [Other acute postprocedural pain] 02-09-2024 Episodic Other non-traumatic joint disorders (1 source) Allergic arthritis of the hand; 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, right hand] Onset: 4 Chronic Other non-traumatic joint disorders (20 sources) Hip pain; Translations: [Pain in unspecified hip] 01-08-2021 Episodic Other non-traumatic joint disorders (14 sources) Pain in wrist; Translations: [Pain in right wrist] 05-19-2023 Episodic Other non-traumatic joint disorders (1 source) Pain of right wrist; Translations: [Pain in right wrist] 05-20-2023 Episodic Other nutritional; endocrine; and metabolic disorders (17 sources) Body mass index 40+ - severely obese; Translations: [Morbid (severe) obesity due to excess calories] Onset: 4 Chronic Other nutritional; endocrine; and metabolic disorders (1 source) Morbid (severe) obesity due to excess calories Chronic Other nutritional; endocrine; and metabolic disorders (8 sources) Morbid obesity; Translations: [Morbid (severe) obesity due to excess calories] Onset: 4 Chronic Other nutritional; endocrine; and metabolic disorders (11 sources) Obesity; Translations: [Obesity, unspecified] Onset: 4 09-23-2023 Chronic Other nutritional; endocrine; and metabolic disorders (1 source) Abnormal weight gain; Translations: [Abnormal weight gain] Onset: 4 Episodic Other nutritional; endocrine; and metabolic disorders (20 sources) Weight gain 07-17-2023 Episodic Other screening for suspected conditions (not mental disorders or infectious disease) (2 sources) Cardiac disease monitoring status; Translations: [Encounter for screening for cardiovascular disorders] Onset: 4 Episodic Other skin disorders (2 sources) Other skin changes; Translations: [Other skin changes] Onset: 4 Episodic Other upper respiratory infections (4 sources) Streptococcal sore throat; Translations: [Strep pharyngitis] Onset: 4 Episodic Pleurisy; pneumothorax; pulmonary collapse (1 source) Pleurisy; Translations: [Pleurisy] Onset: 4 Episodic Pneumonia (except that caused by tuberculosis or sexually transmitted disease) (2 sources) Pneumonia; Translations: [Pneumonia, unspecified organism] Onset: 4 Episodic Rehabilitation care; fitting of prostheses; and adjustment of devices (3 sources) Patient encounter status; Translations: [Encounter for fitting and adjustment of other specified devices] Onset: 4 02-09-2024 Chronic Residual codes; unclassified (1 source) H/O Spinal surgery; Translations: [Presence of other specified functional implants] 12-27-2023 Chronic Residual codes; unclassified (2 sources) Presence [...] (20 sources) Chronic back pain 07-17-2023 Episodic Residual codes; unclassified (1 source) Past history of procedure; Translations: [Other specified postprocedural states] Onset: 4 Episodic Residual codes; unclassified (1 source) Localized edema; Translations: [Localized edema] Onset: 4 Episodic Screening and history of mental health [...] back pain] Onset: 1 Resolved: 1 Episodic Substance-related disorders (20 sources) Smoker; Translations: [Nicotine dependence, unspecified, uncomplicated] Onset: 3 07-18-2016 Chronic Comment on above: Added secondary to d ocumentation in Social History. Substance-related disorders (17 sources) Continuous opioid dependence; Translations: [Opioid use, unspecified, uncomplicated] 01-15-2023 Episodic Superficial injury; contusion (8 sources) Superficial injury of trunk; Translations: [Contusion of lower back and pelvis, initial encounter] Onset: 3 Episodic Unclassified (3 sources) Fitting and adjustment of other gastrointestinal appliance and device; Translations: [Fitting and adjustment of other gastrointestinal appliance and device] Unclassified (5 sources) Other low back pain; Translations: [Other low back pain] Onset: 4 Unclassified (1 source) CONTACT W/AND (SUSP) EXPOS COVID-19; Translations: [CONTACT W/AND (SUSP) EXPOS COVID-19] Onset: 2 Unclassified (10 sources) Low back pain, unspecified; Translations: [Low back pain, unspecified] Onset: 3 Unclassified (20 sources) Drug therapy finding 07-17-2023 Unclassified (20 sources) Patient encounter status 07-17-2023 Unclassified (1 source) Presented to ED with a complaint of Post Op, Back Pain 11-27-2023 Unclassified (4 sources) Left leg weakness 01-08-2024 Unclassified (1 source) Finding of sensation of lower limb 01-10-2024 Unclassified (1 source) Low back pain, unspecified; Translations: [Low back pain, unspecified] Onset: 4 Unclassified (1 source) Pain in right wrist; Translations: [Pain in right wrist] Onset: 4 Unclassified (1 source) Other low back pain; Translations: [Other low back pain] Onset: 4 Unclassified (1 source) Pain in left shoulder; Translations: [Pain in left shoulder] Onset: 4 Unclassified (1 source) Hepatic fibrosis, advanced fibrosis; Translations: [Hepatic fibrosis, advanced fibrosis] Onset: 4 Unclassified (2 sources) Chronic back pain greater than 3 months duration Onset: 4 Unclassified (1 source) Other intervertebral disc degeneration, lumbar region with discogenic back pain and lower extremity pain; Translations: [Other intervertebral disc degeneration, lumbar region with discogenic back pain and lower extremity pain] Onset: 4 Urinary tract infections (20 sources) Urinary tract infectious disease; Translations: [Urinary tract infection, site not specified] Onset: 4 10-10-2021 Episodic Viral infection (20 sources) Disease caused by 2018-nCoV; Translations: [COVID-19] Onset: 3 10-18-2021 Episodic Viral infection (20 sources) Disease caused by 2019-nCoV Onset: 3 07-17-2023 Past or Other Problems Problem Classification Problem Date Documented Da te Episodic/Chronic Abdominal pain (20 sources) Right upper quadrant pain; Translations: [Right upper quadrant pain] Onset: 01-31-2014 11-13-2021 Episodic E Codes: Fall (3 sources) Fall; Translations: [Unspecified fall, initial encounter] Onset: 09-19-2023 01-30-2024 Episodic Fever of unknown origin (1 source) Fever, unspecified; Translations: [Fever, unspecified] Onset: 10-05-2023 Episodic Fracture of upper limb (20 sources) Closed fracture of trapezoidal bone of wrist; Translations: [Displaced fracture of trapezoid [smaller multangular], right wrist, initial encounter for closed fracture] Onset: 05-11-2023 Episodic Other connective tissue disease (20 sources) Neuropathic pain; Translations: [Neuralgia and neuritis, unspecified] Onset: 07-18-2023 06-05-2023 Episodic Other connective tissue disease (6 sources) Neuralgia and neuritis, unspecified; Translations: [Neuralgia and neuritis, unspecified] Onset: 08-21-2023 Episodic Other gastrointestinal disorders (1 source) Diarrhea, unspecified; Translations: [DIARRHEA UNSPECIFIED] Onset: 09-15-2021 Episodic Other gastrointestinal disorders (2 sources) Drug induced constipation; Translations: [Drug induced constipation] Onset: 10-11-2023 Episodic Other injuries and conditions due to external causes (2 sources) Other injury of unspecified body region, initial encounter; Translations: [Other injury of unspecified body region, initial encounter] Onset: 10-05-2023 Episodic Other non-traumatic joint disorders (1 source) Pain in left hip Onset: 02-15-2021 Resolved: 02-15-2021 Episodic Other non-traumatic joint disorders (2 sources) Pain in right wrist; Translations: [Pain in right wrist] Onset: 05-20-2023 Episodic Residual codes; unclassified (3 sources) Insomnia; Translations: [Insomnia] Episodic Skin and subcutaneous tissue infections (4 sources) Cellulitis; Translations: [Cellulitis, unspecified] Onset: 09-25-2023 Episodic Sprains and strains (20 sources) Sprain of ankle; Translations: [Sprain of unspecified ligament of right ankle, initial encounter] Onset: 05-26-2023 11-27-2020 Episodic Unclassified (1 source) Other low back pain M54.59 Onset: 03-30-2021 Resolved: 03-30-2021 Unclassified (1 source) Acute left-sided low back pain, unspecified whether sciatica present M54.50 Unclassified (14 sources) Myofascial low back pain; Translations: [Other low back pain] Unclassified (20 sources) Onset: 01-15-2023 Resolved: 12-24-2023 01-15-2023 Unclassified (8 sources) Leakage of wound after surgical procedure; Translations: [Drainage from surgical wound] 11-10-2023 Unclassified (7 sources) Low back pain, unspecified; Translations: [Low back pain, unspecified] Onset: 05-03-2023 Unclassified (1 source) Hepatic fibrosis, advanced fibrosis; Translations: [Hepatic fibrosis, advanced fibrosis] Onset: 12-24-2023 Unclassified (1 source) Other intervertebral disc degeneration, lumbar region with discogenic back pain and lower extremity pain; Translations: [Other intervertebral disc degeneration, lumbar region with discogenic back pain and lower extremity pain] Onset: 01-06-2024 Results Test Name Value Interpretation Reference Range Facility URINALYSISOrdered By: SYSTEM SYSTEM on 02-20-2024 Bilirubin Ql (U) Negative Normal Negativemg/ d L [facility] UA Auto SS Clarity (U) Clear (02/20/24 4:50 PM) Normal Clear [facility] UA Auto SS Color (U) Light-Yellow 1 (02/20/24 4:50 PM) Normal Yellow [facility] UA Auto SS Comment on above: Interpretive Data: M icroscopic readings are only performed on those samples that meet specific criteria set forth by [facility]. Epithelial cells.squamous Auto (Urine sed) [#/Area] 5-8 graded/HPF Invalid Interpretation Code [facility] UA Auto SS Glucose Ql (U) Negative Normal Negativemg/d L [facility] UA Auto SS Hemoglobin Auto test strip (U) [Mass/Vol] 1+ mg/dL Invalid Interpretation Code Negativemg/d L [facility] UA Auto SS Ketones Auto test strip Ql (U) Negative Normal Negativemg/d L [facility] UA Auto SS Leukocyte esterase Auto test strip Ql (U) 75 Robert/uL Robert/uL Invalid Interpretation Code NegativeLeu/ uL [facility] UA Auto SS Mucus Auto Ql (U) Trace graded/LPF Normal Negati vegrad ed/LPF [facility] UA Auto SS Nitrite Auto test strip Ql (U) Negative Normal Negativemg/d L [facility] UA Auto SS pH (U) 7.0 *NA* (02/20/24 4:50 PM) Invalid Interpretation Code 5.0 - 9.0 [facility] UA Auto SS Protein Ql (U) Negative Normal Negativemg/d L [facility] UA Auto SS RBC Ql (U) 4-20 graded/HPF Invalid Interpretation Code 0-3graded/HP F [facility] UA Auto SS Specific gravity (U) [Rel density] 1.018 *NA* (02/20/24 4:50 PM) Invalid Interpretation Code 1.005 - 1.030 [facility] Urobilinogen (U) [Mass/Vol] Negative Normal Negativemg/d L [facility] [place] WBC Auto (Urine sed) [#/Area] 26-30 graded/HPF Invalid Interpretation Code 0-5graded/HP F [facility] UA Auto SS URINALYSISOrdered By: Joan Garnett on 02-20-2024 UA Spec Desc Clean Catch (02/20/24 4:50 PM) Normal [facility] [place] Auto SS BMPon 02-16-2024 Anion gap [Moles/Vol] 10 mmol/L Normal 6-16 [facility] Comment on above: Performed By: #### 2 [id number] #### [facility] [address] [place] [address] Calcium [Mass/Vol] 8.8 mg/dL Low 8.9-11.1 [facility] Comment on above: Performed By: #### 2 [id number] #### [facility] [address] [place] [address] Chloride [Moles/Vol] 108 mmol/L Normal 101-111 [facility] Comment on above: Performed By: #### 2 [id number] #### [facility] [address] [place] [address] CO2 [Moles/Vol] 28 mmol/L Normal 21-31 [facility] Comment on above: Performed By: #### 2 [id number] #### [facility] [address] [place] [address] Creatinine [Mass/Vol] 0.7 mg/dL Normal 0.5-1.3 [facility] Comment on above: Performed By: #### 2 [id number] #### [facility] [address] [place] [address] Glucose [Mass/Vol] 96 mg/dL Normal 55-199 [facility] Comment on above: Performed By: #### 2 [id number] #### [facility] [address] [place] [address] Potassium [Moles/Vol] 3.8 mmol/L Normal 3.5-5.3 [facility] Comment on above: Performed By: #### 2 [id number] #### [facility] [address] [place] [address] Sodium [Moles/Vol] 142 mmol/L Normal 135-145 [facility] Comment on above: Performed By: #### 2 [id number] #### [facility] [address] [place] [address] Urea nitrogen [Mass/Vol] 17 mg/dL Normal 5-21 [facility] Comment on above: Performed By: #### 2 [id number] #### [facility] [address] [place] [address] Urea nitrogen/Creatinine [Mass ratio] 24 No Units High 10-20 [facility] Comment on above: Performed By: #### 2 [id number] #### [facility] [address] [place] [address] CBC w/ Auto Diffon 4 Basophils/100 WBC (Bld) 0.4 % Normal 0.0-2.0 [facility] Comment on above: Performed By: #### 2 [id number] #### [facility] [address] [place] [address] Basophils/Leukocytes Auto (Bld) [Pure # fraction] 0.0 E9/L Normal 0.0-0.2 [facility] Comment on above: Performed By: #### 2 [id number] #### [facility] [address] [place] [address] Eosinophils (Bld) [#/Vol] 0.1 E9/L Normal 0.0-0.5 [facility] Comment on above: Performed By: #### 2 [id number] #### [facility] [address] [place] [address] Eosinophils/100 WBC (Bld) 1.7 % Normal 0.0-8.0 [facility] Comment on above: Performed By: #### 2 [id number] #### [facility] [address] [place] [address] Erythrocyte distribution width (RBC) [Ratio] 14.8 % High 10.9-14.2 [facility] Comment on above: Performed By: #### 2 [id number] #### [facility] [address] [place] [address] Hematocrit (Bld) [Volume fraction] 40.2 % Normal 34.0-46.0 [facility] Comment on above: Performed By: #### 2 [id number] #### [facility] [address] [place] [address] Hemoglobin (Bld) [Mass/Vol] 13.6 g/dL Normal 12.0-16.0 [facility] Comment on above: Performed By: #### 2 [id number] #### [facility] [address] [place] [address] Lymphocytes (Bld) [#/Vol] 2.3 E9/L Normal 1.0-4.0 [facility] Comment on above: Performed By: #### 2 [id number] #### [facility] [address] [place] [address] Lymphocytes/100 WBC (Bld) 29.1 % Normal 14.0-50.0 [facility] Comment on above: Performed By: #### 2 [id number] #### [facility] [address] [place] [address] MCH (RBC) [Entitic mass] 30.6 pg Normal 27.0-34.0 [facility] Comment on above: Performed By: #### 2 [id number] #### [facility] [address] [place] [address] MCHC (RBC) [Mass/Vol] 33.9 g/dL Normal 31.4-36.0 [facility] Comment on above: Performed By: #### 2 [id number] #### [facility] [address] [place] [address] MCV (RBC) [Entitic vol] 90.1 fL Normal 80.0-100.0 [facility] Comment on above: Performed By: #### 2 [id number] #### [facility] [address] [place] [address] Monocytes (Bld) [#/Vol] 0.5 E9/L Normal 0.2-1.0 [facility] Comment on above: Performed By: #### 2 [id number] #### [facility] [address] [place] [address] Neutrophils (Bld) [#/Vol] 4.9 E9/L Normal 2.0-7.5 [facility] Comment on above: Performed By: #### 2 [id number] #### [facility] [address] [place] [address] Neutrophils/100 WBC (Bld) 62.2 % Normal 36.0-75.0 [facility] Comment on above: Performed By: #### 2 [id number] #### [facility] [address] [place] [address] Platelet 351.0 E9/L Normal 150.0-500.0 [facility] Comment on above: Performed By: #### 2 [id number] #### [facility] [address] [place] [address] Platelet mean volume (Bld) [Entitic vol] 7.8 fL Normal 6.4-10.8 [facility] Comment on above: Performed By: #### 2 [id number] #### [facility] [address] [place] [address] RBC (Bld) [#/Vol] 4.5 E12/L Normal 4.3-5.9 [facility] Comment on above: Performed By: #### 2 [id number] #### [facility] [address] [place] [address] WBC corrected for nucl RBC Auto (Bld) [#/Vol] 7.9 E9/L Normal 4.0-11.0 [facility] Comment on above: Performed By: #### 2 [id number] #### [facility] [address] [place] [address] CHEMISTRYOrdered By: SYSTEM SYSTEM on 02-16-2024 Troponin HS 3.70 pg/mL Low 10.10 - 27.10 pg/mL [facility] Comment on above: Interpretive Data: T he 95% CI (Confidence Interval) PPV (Positive Predictive Value) for myocardial infarction in females is 38 pg/mL, in males 51 pg/mL. The results should be used in conjunction with clinical conditions of myocardial infarction. (Access High Sensitivity Troponin I Instructions For Use, [employer], October 2017) Anion gap [Moles/Vol] 10 mmol/L Normal 6 - 16 mEq/L [facility] Calcium [Mass/Vol] 8.8 mg/dL Low 8.9 - 11. 1 mg/dL [facility] Chloride [Moles/Vol] 108 mmol/L Normal 101 - 1 11 mmol/L [facility] CO2 [Moles/Vol] 28 mmol/L Normal 21 - 31 mmol/L [facility] Creatinine [Mass/Vol] 0.7 mg/dL Normal 0.5 - 1.3 mg/dL [facility] eGFR 107 mL/min/1.73 m2 Normal >=59mL/mi n/1 .73 m2 [facility] Glucose [Mass/Vol] 96 mg/dL Normal 55 - 199 mg/dL [facility] Potassium [Moles/Vol] 3.8 mmol/L Normal 3.5 - 5.3 mmol/L [facility] Sodium [Moles/Vol] 142 mmol/L Normal 135 - 145 mmol/L [facility] Troponin HS 3.10 pg/mL Low 10.10 - 27.10 pg/mL [facility] Comment on above: Interpretive Data: T he 95% CI (Confidence Interval) PPV (Positive Predictive Value) for myocardial infarction in females is 38 pg/mL, in males 51 pg/mL. The results should be used in conjunction with clinical conditions of myocardial infarction. (Access High Sensitivity Troponin I Instructions For Use, [employer], October 2017) Urea nitrogen [Mass/Vol] 17 mg/dL Normal 5 - 21 mg/dL [facility] Urea nitrogen/Creatinine [Mass ratio] 24 mg/mg High 10 - 20 Remisol Chem COAGULATIONOrdered By: Radha Vivar on 02-16-2024 aPTT Coag (PPP) [Time] 29.0 s Normal 25.1 - 36.5 second(s) [facility] Comment on above: Interpretive Data: Tami leigh 15 days - 4 weeks 1 - 5 months 6 - 11 months 1 - 5 years 6 - 10 years 11 - 17 years PTT Mean: 35.4 (27.6-45.6) Mean: 33.5 (24.8-40.7) Mean: 32.4 (25.1-40.7) Mean: 31.6 (24.0-39.2) Mean: 31.6 (26.9-38.7) Mean: 31.0 (24.6-38.4) Pediatric Reference ranges were obtained from a study by monique Zavala prepared from 1437 samples obtained at 7 different centers using the same coagulation reagent and instrumentation as [facility] Currently there are no coagulation studies available worldwide for children to 14 days, and no normal ranges. Heparin therapeutic range (represented by Anti-Factor Xa activity of 0.2 - 0.4 U/mL) corresponds to PTT of 56.6 - 109.0 sec. INR Coag (PPP) [Relative time] 1.01 {INR} Invalid Interpretation Code [facility] Comment on above: Interpretive Data: I NR results are specifically intended to assess patients stabilized on long-term Anticoagulation therapy suggested INR s Less Intensive Anticoagulation 2.0 3.0 Conventional Range 3.0 4.5 PT Coag (PPP) [Time] 11.3 s Normal 9.4 - 1 2.5 second(s) [facility] Comment on above: Interpretive Data: [...] were obtained from a study by Chidi Paris, et al. prepared from 1437 samples obtained at 7 different centers using the same coagulation reagent and instrumentation as [facility] Currently there are no coagulation studies available worldwide for children to 14 days, and no normal ranges. ED Clinical Summaryon 2023 ED Clinical Summary ED Clinical Summary [address] [address] ED Clinical Summary Person Information Name: JERAD TRACY[place] Age: 48 Years : 1975 Sex: Female Language: Cambodian PCP: Cheyanne Rincon Marital Status: Phone: Visit Id: Visit Reason: Chest pain; Cough; Shortness of breath; SOB Speciality: Acuity: 3 Enc Type: Emergency Med Service: Emergency Arrival: 02/16/2024 09:17:08 Discharge: 02/16/2024 11:51:59 LOS: 000 02:34 Checkin: 02/16/2024 09:17:08 Checkout: 02/16/2024 11:51:59 Dispo Type: Home (Routine DC) EVENTS: Event Name Event Status Request Date/Time Start Date/Time Complete Date/Time Arrive Complete 02/16/2024 09:17:08 02/16/2024 09:17:08 02/16/2024 09:17:08 Document Home Meds Request 02/16/2024 09:17:08 Triage Complete 02/16/2024 09:17:08 02/16/2024 09:23:58 02/16/2024 09:23:58 Bed Assign Complete 02/16/2024 09:18:43 02/16/2024 09:18:43 02/16/2024 09:18:43 Dr Exam Complete 02/16/2024 09:18:44 02/16/2024 09:19:37 02/16/2024 09:19:37 RN Exam Complete 02/16/2024 09:18:44 02/16/2024 09:24:48 02/16/2024 09:24:48 Registration Complete 02/16/2024 09:19:37 02/16/2024 09:20:08 02/16/2024 09:20:08 Dr Exam Complete 02/16/2024 09:19:45 02/16/2024 09:19:45 02/16/2024 09:19:45 Reg Complete Request 02/16/2024 09:20:08 Reg Bed Request Complete 02/16/2024 09:20:08 02/16/2024 09:20:08 02/16/2024 09:20:08 EKG Complete 02/16/2024 09:21:11 02/16/2024 09:25:14 Pending Labs Complete 02/16/2024 09:33:47 02/16/2024 11:28:16 Lab Complete 02/16/2024 09:33:47 02/16/2024 10:09:50 Patient Care Request 02/16/2024 09:33:47 X-Ray Complete 02/16/2024 09:33:47 02/16/2024 09:39:44 02/16/2024 09:54:44 Meds Admin Complete 02/16/2024 09:34:23 02/16/2024 09:42:58 RT Tx/ABG Request 02/16/2024 09:34:23 RT Tx/ABG Request 02/16/2024 09:34:23 Meds Admin Complete 02/16/2024 09:35:32 02/16/2024 09:38:50 Pending Labs Complete 02/16/2024 09:47:05 02/16/2024 09:47:05 02/16/2024 10:09:50 Lab Complete 02/16/2024 09:47:05 02/16/2024 09:47:05 02/16/2024 10:09:50 Wet Read Request 02/16/2024 09:54:44 Meds Admin Cancel 02/16/2024 09:59:23 02/16/2024 10:00:37 Meds Admin Complete 02/16/2024 10:00:37 02/16/2024 10:04:30 Pending Labs Complete 02/16/2024 10:29:46 02/16/2024 10:29:46 02/16/2024 10:29:47 Meds Admin Complete 02/16/2024 10:58:16 02/16/2024 11:14:45 Discharge Complete 02/16/2024 11:44:15 02/16/2024 11:52:04 02/16/2024 11:52:04 Transfer Complete 02/16/2024 11:52:04 02/16/2024 11:52:04 02/16/2024 11:52:04 ADDRESS: [place] [id number] PHYS DOC NOTES: MEDICAL INFORMATION: Prescriptions Given: New Medications [facility]/pharmacy #[id number], [address] [place], [place] [id number], [phone] cefdinir (cefdinir 300 mg Cap) 1 Capsules By Mouth every 12 hours for 7 Days. Refills: 0. Medications to Continue with No Changes Other Medications albuterol (Albuterol (Eqv-ProAir HFA) 90 mcg/inh inhalation aerosol) 2 Puffs Inhalation every 6 hours for 7 Days. Refills: 0. azithromycin (azithromycin 250 mg Tab) 250 Milligram By Mouth As Directed. Take two tabs by mouth on day one, then one tab daily. Refills: 0. cyclobenzaprine (cyclobenzaprine 10 mg Tab) 1 Tablets By Mouth 3 times a day as needed for spasm. Refills: 0. dicyclomine (Bentyl 10 mg Cap) 2 Capsules By Mouth 4 times a day. Refills: 0. diflunisal (diflunisal 500 mg Tab) 1 Tablets By Mouth every 12 hours. Refills: 0. fluoxetine (FLUoxetine 60 mg oral tablet) TAKE 1 TABLET BY MOUTH EVERY DAY. Refills: 1. ibuprofen (ibuprofen 800 mg Tab) 1 Tablets By Mouth 3 times a day. Refills: 0. lidocaine topical (lidocaine Top 5% film Patch) 1 Patches Topical every day. apply 12 hours on and 12 hours off daily. Refills: 0. lidocaine topical (Lidoderm 5% Patch) 1 Patches Topical every day. apply 12 hours on and 12 hours off daily. Refills: 0. ondansetron (Zofran 4 mg Tab) 1 Tablets By Mouth every 6 hours as needed Nausea. Take one tab by mouth every six hours as needed for nausea. Refills: 0. predniSONE (predniSONE 10 mg Tab) 1 Tablets By Mouth As Directed. Take 3 tabs by mouth daily x3 days, then 2 tabs daily x3 days, then 1 tab daily x3 days.. Refills: 0. predniSONE (predniSONE 20 mg Tab) 3 By Mouth every day. Refills: 0. PATIENT EDUCATION INFORMATION: Instructions: Community-Acquired Pneumonia, Adult; Costochondritis Follow up: With: Address: When: [address], [address], [place] [id number] Business (1) In 3 days 02/19/2024 DIAGNOSIS: Costochondritis; Cough; Pneumonia; Shortness of breath Normal [facility] ED Note-Physicianon 02-16-20 ED Note-Physician ED Note-Physician Basic Information Time Seen: Gumaro MLIES, Manuel Marino 02/16/2024 09:19 Chief Complaint Pt reports recent PNE dx, states given steroids, abx, and inhaler. But is having sob and cp due to coughing. History of Present Illness Patient is a 48-year-old female that presents today for evaluation of her chest pain and shortness of breath. Patient was just diagnosed with pneumonia here in the ED and was given steroids, antibiotics, and inhaler. She states that she is having continued shortness of breath and chest pain due to this pneumonia despite the medications. She denies any fevers, bodies, chills. She does state that the cough worsens her pain on her right side of her chest. She did just have lower back surgery at [facility] but had a CTA of the chest that was negative for PE. Review of Systems No other aggravating or relieving factors no other associated symptoms no other prior treatments or complaints. Family: Reviewed and noncontributory Social: lives at home Review of systems negative unless otherwise specified in the HPI. Physical Exam Vitals & Measurements T: 36.8 ???C(Oral) HR: 102(Peripheral) RR: 17 BP: 155/101 SpO2: 100% HT: 160 cm WT: 114.8 kg BMI: 44.84 General: The patient appears well and in no apparent distress. Patient is resting comfortably on cart. Skin: Warm, dry, no pallor noted. Head: Normocephalic, atraumatic Neck: No JVD Eye: PERRLA, EOMI ENT: Moist mucus membranes Cardiovascular: Regular rate and rhythm. Normal peripheral perfusion Respiratory: CTA bilaterally. No respiratory distress no accessory muscle use no obvious audible wheezing Chest Wall: no deformity. Right sided chest wall tenderness. Musculoskeletal: normal ROM, no deformity, no swelling GI: Soft no obvious distention. No rebound or rigidity. No guarding. No tenderness. Neurological: A&O moves all extremities equal strength and symmetry Psychiatric: Cooperative and appropriate Procedure Heart Score for Major Cardiac Event History: Example factors for history - pattern of chest pain, onset, duration, relation with exercise, stress or cold, localization, concominant symptoms. reaction to sublingual nitrates, [] Highly suspicious +2 [] Moderately suspicious +1 [x] Slightly suspicious 0 EKG: [] Significant ST-Depression +2 [] Non specific repolarization disturbance +1 [x] Normal 0 Age: [] >= 65 +2 [x] 45-65 + 1 [] <45 0 Risk Factors: (HLD, HTN, DM, Cigarette Smoking, Pos Family Hx, Obesity) [] >3 risk factors or hx of atheroslerotic disease + 2 [x] 1-2 risk factors + 1 [] No risk factors known 0 Troponin: [] >= 3X normal + 2 [] 1-3X normal + 1 [x] <= Normal 0 [x] 0-3 Points 0.9 - 1.7% risk of major adverse cardiac event in 6 weeks [] 4-6 Points 12-16.6% risk of major adverse cardiac event in 6 weeks [] 7-10 Points 50-65% risk of major adverse cardiac event in 6 weeks [] 0-3 Points with 2 sets of negative cardiac markers <1% risk of major adverse cardiac event in 30 days Medical Decision Making Patient is a 48-year-old female presents today for evaluation of her chest pain and shortness of breath. She was just diagnosed with pneumonia based off a CTA of the chest with PE rule out here in the ED 2 days ago and was given steroids and antibiotics and inhaler. She is having continued symptoms despite these medications. Denies any other systemic signs or symptoms. On exam the patient is afebrile nontoxic-appearing. SpO2 100% on room air. CTA to bilateral lung gonzalez. RRR. She does have right-sided chest wall tenderness. Labs are WNL including 0 and 1 hour troponin. Single view chest x-ray interpreted by myself is negative for any acute cardiopulmonary process. EKG demonstrates NSR. Patient was given a dose of Decadron, Toradol, morphine as well as a DuoNeb breathing treatment for her pain and shortness of breath with improvement. Her pain is likely due to costochondritis with chest wall tenderness due to her cough from the pneumonia. Heart score of 2. Discussed with her that we will double cover her for her pneumonia given she is already on azithromycin. She just had a CTA of the chest 2 days ago which was negative for PE and I do not feel is warranted for repeat scan at this time. She will be started on cefdinir given her penicillin allergy and she will be discharged home with close follow-up with her PCP. Return to ED precautions were reviewed with the patient at length. Assessment/Plan Costochondritis (M94.0: Chondrocostal junction syndrome [Tietze]) Cough (R05.9: Cough, unspecified) Pneumonia (J18.9: Pneumonia, unspecified organism) Shortness of breath (R06.02: Shortness of breath) Orders: albuterol-ipratropium, 3 mL, Soln-Inh, Inhalation, Once, Stop date 02/16/24 9:33:00 EST, STAT, Start date 02/16/24 9:33:00 EST cefdinir, 300 mg = 1 cap(s), Oral, q12hr, X 7 (more content not included)... Normal [facility] Comment on above: Result Comment: Elec tronically Signed By: Manuel Naik PA-C\.br\Date and Time Signed: 02/16/24 15:47 EST\.br\Electronically Co-Signed By: Nikhil Tubbs DO.br\Date and Time Co-Signed: 02/16/24 18:31 EST ED Patient Summaryon 024 ED Patient Summary ED Patient Summary [address] [address] Patient Discharge Instructions Person Information Name: JERAD TRACY Age: 48 Years Arrival Date: 02/16/2024 09:17:08 Discharge Diagnosis: Costochondritis; Cough; Pneumonia; Shortness of breath Primary Care Physician: Cheyanne Rincon Provider Information Primary Provider: Nikhil Tubbs DO [employer] Kitchen:Manuel Naik PA-C The exam and treatment you received in the Emergency Department were for an urgent problem and are not intended as complete care. It is important that you follow up with a doctor, nurse practitioner, or physician???s insurance administrative assistant for ongoing care. If your symptoms [...] Follow-up Instructions: With: Address: When: Cheyanne Rosas [address] [place] [address] A, [address] [address] Business (1) In 3 days 02/19/2024 In the event that this physician does not participate in your insurance network, please consult with your insurance company to find a nearby participating provider. Patient Education Materials: Community-Acquired Pneumonia, Adult; Costochondritis A MESSAGE TO ALL PATIENTS REGARDING OPIOIDS PRESCRIPTION OPIOIDS: WHAT YOU NEED TO KNOW Prescription opioids can be used to help relieve btaiodyq-ur-rayhls pain and are often prescribed following a [...] as well, even when taken as directed: ??? Tolerance???meaning you might need to take more of the medication for the same pain relief ??? Physical dependence???meaning you have symptoms of withdrawal when a medication is stopped ??? Increased sensitivity to pain ??? Constipation ??? Nausea, vomiting, and dry mouth ??? Sleepiness and dizziness ??? Confusion ??? Depression ??? Low levels of testosterone that can result in lower sex drive, energy, and strength ??? Itching and sweating RISKS ARE GREATER WITH: ??? History of drug misuse, substance use disorder, or overdose ??? Mental health conditions (such as depression or anxiety) ??? Sleep apnea ??? Older age (65 years and older) ??? Avoid alcohol while taking prescription opioids. Also, unless specifically advised by your health care provider, medications to avoid include: ??? Benzodiazepines (such as Xanax or Valium) ??? Muscle relaxants (such as Soma or Flexeril) ??? Hypnotics (such as Ambien or Lunesta) ??? Other prescription opioids KNOW YOUR OPTIONS Talk to your health care provider about ways to manage your pain that don???t involve prescription opioids. Some of these options may actually work better and have fewer risks and side effects. Options may include: ??? Pain relievers such as acetaminophen, ibuprofen, and naproxen ??? Some medication that are also used for depression or seizures ??? Physical therapy and exercise ??? Cognitive behavioral therapy, a psychological, goal-directed approach, in which patients learn how to modify physical, behavioral, and emotional triggers of pain and stress. IF YOU ARE PRESCRIBED OPIOIDS FOR PAIN: ??? Never take opioids in greater amounts or more often than prescribed. ??? Follow up with your primary health care provider. o Work together to create a plan on how to manage your pain. o Talk about ways to help manage your pain that don???t involve prescription opioids. o Talk about any and all concerns and side effects. ??? Help prevent misuse and abuse o Never sell or share prescription opioids. o Never use another person???s prescription opioids. ??? Store prescription opioids in a secure place and out of reach of others (this may include visitors, children, friends, and family). ??? Safely dispose of unused prescription opioids: Find your community drug take-back program or your pharmacy mail-back program, or flush them down the toilet, following guidance from the Food and Drug Administration (www.fda.gov/Drugs/Reso Julieta). ??? Visit www.cdc.gov/drugoverdos e to learn about the risks of opioids abuse and overdose. ??? (more content not included)... Normal [facility] HEMATOLOGYOrdered By: SYSTEM SYSTEM on 02-16-2024 Basophils/100 WBC (Bld) 0.4 % Normal 0.0 - 2.0 % Remisol Heme Basophils/Leukocytes Auto (Bld) [Pure # fraction] 0.0 E9/L Normal 0.0 - 0.2 E9/L Remisol Heme Eosinophils (Bld) [#/Vol] 0.1 E9/L Normal 0.0 - 0.5 E9/L Remisol Heme Eosinophils/100 WBC (Bld) 1.7 % Normal 0.0 - 8.0 % Remisol Heme Erythrocyte distribution width (RBC) [Ratio] 14.8 % High 10.9 - 14.2 % Remisol Heme Hematocrit (Bld) [Volume fraction] 40.2 % Normal 34.0 - 46.0 % Remisol Heme Hemoglobin (Bld) [Mass/Vol] 13.6 g/dL Normal 12.0 - 16.0 gm/dL Remisol Heme Lymphocytes (Bld) [#/Vol] 2.3 E9/L Normal 1.0 - 4.0 E9/L Remisol Heme Lymphocytes/100 WBC (Bld) 29.1 % Normal 14.0 - 50.0 % Remisol Heme MCH (RBC) [Entitic mass] 30.6 pg Normal 27.0 - 34.0 pg Remisol Heme MCHC (RBC) [Mass/Vol] 33.9 g/dL Normal 31.4 - 36.0 gm/dL Remisol Heme MCV (RBC) [Entitic vol] 90.1 fL Normal 80.0 - 100.0 fL Remisol Heme Monocytes (Bld) [#/Vol] 0.5 E9/L Normal 0.2 - 1.0 E9/L Remisol Heme Monocytes/100 WBC (Bld) 6.6 % Normal 4.0 - 14.0 % Remisol Heme Neutrophils (Bld) [#/Vol] 4.9 E9/L Normal 2.0 - 7.5 E9/L Remisol Heme Neutrophils/100 WBC (Bld) 62.2 % Normal 36.0 - 75.0 % Remisol Heme Platelet 351.0 E9/L Normal 150.0 - 500.0 E9/L Remisol Heme Platelet mean volume (Bld) [Entitic vol] 7.8 fL Normal 6.4 - 10.8 fL Remisol Heme RBC (Bld) [#/Vol] 4.5 E12/L Normal 4.3 - 5.9 E12/L Remisol Heme WBC corrected for nucl RBC Auto (Bld) [#/Vol] 7.9 E9/L Normal 4.0 - 11.0 E9/L Remisol Heme PT & PTTon 02-16-2024 aPTT Coag (PPP) [Time] 29.0 second(s) Normal 25.1-36.5 [facility] Comment on above: Result Comment: Para [...] the same coagulation reagent and instrumentation as [facility] Currently there are no coagulation studies available worldwide for children to 14 days, and no normal ranges. Heparin therapeutic range (represented by Anti-Factor Xa activity of 0.2 - 0.4 U/mL) corresponds to PTT of 56.6 - 109.0 sec. Performed By: #### 1 [id number] #### [facility] [address] [place] [address] INR Coag (PPP) [Relative time] 1.01 {INR} Invalid Interpretation Code [facility] Comment on above: Result Comment: INR results are specifically intended to assess patients stabilized on long-term Anticoagulation therapy suggested INR???s ???Less Intensive Anticoagulation??? 2.0 ??? 3.0 Conventional Range 3.0 ??? 4.5 Performed By: #### 1 [id number] #### [facility] [address] [place] [address] PT Coag (PPP) [Time] 11.3 second(s) Normal 9.4-12.5 [facility] Comment on above: Result Comment: 15 d ays - 4 weeks 1 - 5 months 6 -11 months 1 ??? 5 years 6 ??? 10 years 11 -17 years Mean: 11.2 (9.5 ??? 12.6) Mean: 11.0 (9.7 ??? 12.8) Mean: 11.0 (9.8 ??? 13.0) Mean: 11.3 (9.9 ??? 13.4) Mean: 11.7 (10.0 ??? 14.6) Mean: 11.8 (10.0 - 14.1) Pediatric Reference ranges were obtained from a study by Chidi Valera et al. prepared from 1437 samples obtained at 7 different centers using the same coagulation reagent and instrumentation as [facility] Currently there are no coagulation studies available worldwide for children to 14 days, and no normal ranges. Performed By: #### 1 [id number] #### [facility] [address] [place] [address] Troponin 0 Hr.on 02-16-2024 Troponin HS 3.10 pg/mL Low 10.10-27.10 [facility] Comment on above: Result Comment: The 95% CI (Confidence Interval) PPV (Positive Predictive Value) for myocardial infarction in females is 38 pg/mL, in males 51 pg/mL. The results should be used in conjunction with clinical conditions of myocardial infarction. (Access High Sensitivity Troponin I Instructions For Use, Katlyn Lampasas, October 2017) Performed By: #### 1 [id number] #### [facility] [address] [place] [address] Troponin 1 Hr.on 02-16-2024 Troponin HS 3.70 pg/mL Low 10.10-27.10 [facility] Comment on above: Result Comment: The 95% CI (Confidence Interval) PPV (Positive Predictive Value) for myocardial infarction in females is 38 pg/mL, in males 51 pg/mL. The results should be used in conjunction with clinical conditions of myocardial infarction. (Access High Sensitivity Troponin I Instructions For Use, Katlyn Edson, October 2017) Performed By: #### 1 [id number] #### [facility] [address] [place] [address] XR Chest Single Viewon 02-15 XR Chest Single View Exam Date/Time: 02/16/2024 09:54 EST Reason for Exam: Chest pain Report IMPRESSION: No acute findings by portable radiography. EXAMINATION/TECHNIQUE: XR Chest Single View HISTORY: Chest pain. COMPARISON: 02/14/2024. RESULT: No distinct focal consolidation. No pleural effusion. No pneumothorax. Normal cardiomediastinal silhouette. No acute osseous findings. Ordering Provider: Manuel Naik FINAL REPORT Dictated: 02/16/2024 11:38 am Gillian Gamboa MD Signed (Electronic Signature): 02/16/2024 11:38 am Signed by: Gillian Gamboa MD Transcribed by: KIERRA Technologist: SHARON Technical Comments Radiation Dose: Ka,r in mGy = na DAP = na Normal [facility] eGFRon 02-16-2024 eGFR 107 mL/min/1.73 m2 Normal >=59 [facility] Comment on above: Performed By: #### 1 [id number] #### [facility] [address] [place] [address] BMPon 02-14-2024 Anion gap [Moles/Vol] 10 mmol/L Normal 6-16 [facility] [place] [facility] Comment on above: Performed By: #### 2 [id number] #### [facility] [address] [place] [address] Calcium [Mass/Vol] 8.4 mg/dL Low 8.9-11.1 [facility] Comment on above: Performed By: #### 2 [id number] #### [facility] [address] [place] [address] Chloride [Moles/Vol] 105 mmol/L Normal 101-111 [facility] Comment on above: Performed By: #### 2 [id number] #### [facility] [address] [place] [address] CO2 [Moles/Vol] 29 mmol/L Normal 21-31 [facility] Comment on above: Performed By: #### 2 [id number] #### [facility] [address] [place] [address] Creatinine [Mass/Vol] 0.7 mg/dL Normal 0.5-1.3 [facility] [place] [facility] Comment on above: Performed By: #### 2 [id number] #### [facility] [address] [place] [address] Glucose [Mass/Vol] 82 mg/dL Normal 55-199 [facility] Comment on above: Performed By: #### 2 [id number] #### [facility] [address] [place] [address] Potassium [Moles/Vol] 4.0 mmol/L Normal 3.5-5.3 [facility] [place] [facility] Comment on above: Performed By: #### 2 [id number] #### [facility] [address] [place] [address] Sodium [Moles/Vol] 140 mmol/L Normal 135-145 [facility] Comment on above: Performed By: #### 2 [id number] #### [facility] [address] [place] [address] Urea nitrogen [Mass/Vol] 15 mg/dL Normal 5-21 [facility] Comment on above: Performed By: #### 2 [id number] #### [facility] [address] [place] [address] Urea nitrogen/Creatinine [Mass ratio] 21 No Units High 10-20 [facility] Comment on above: Performed By: #### 2 [id number] #### [facility] [address] [place] [address] CBC w/ Auto Diffon 4 Basophils/100 WBC (Bld) 0.5 % Normal 0.0-2.0 [facility] Comment on above: Performed By: #### 2 [id number] #### [facility] [address] [place] [address] Basophils/Leukocytes Auto (Bld) [Pure # fraction] 0.1 E9/L Normal 0.0-0.2 [facility] Comment on above: Performed By: #### 2 [id number] #### [facility] [address] [place] [address] Eosinophils (Bld) [#/Vol] 0.3 E9/L Normal 0.0-0.5 [facility] Comment on above: Performed By: #### 2 [id number] #### [facility] [address] [place] [address] Eosinophils/100 WBC (Bld) 3.0 % Normal 0.0-8.0 [facility] Comment on above: Performed By: #### 2 [id number] #### [facility] [address] [place] [address] Erythrocyte distribution width (RBC) [Ratio] 14.6 % High 10.9-14.2 [facility] Comment on above: Performed By: #### 2 [id number] #### [facility] [address] [place] [address] Hematocrit (Bld) [Volume fraction] 40.7 % Normal 34.0-46.0 [facility] Comment on above: Performed By: #### 2 [id number] #### [facility] [address] [place] [address] Hemoglobin (Bld) [Mass/Vol] 13.6 g/dL Normal 12.0-16.0 [facility] Comment on above: Performed By: #### 2 [id number] #### [facility] [address] [place] [address] Lymphocytes (Bld) [#/Vol] 1.9 E9/L Normal 1.0-4.0 [facility] Comment on above: Performed By: #### 2 [id number] #### [facility] [address] [place] [address] Lymphocytes/100 WBC (Bld) 17.5 % Normal 14.0-50.0 [facility] Comment on above: Performed By: #### 2 [id number] #### [facility] [address] [place] [address] MCH (RBC) [Entitic mass] 30.4 pg Normal 27.0-34.0 [facility] Comment on above: Performed By: #### 2 [id number] #### [facility] [address] [place] [address] MCHC (RBC) [Mass/Vol] 33.4 g/dL Normal 31.4-36.0 [facility] Comment on above: Performed By: #### 2 [id number] #### [facility] [address] [place] [address] MCV (RBC) [Entitic vol] 90.9 fL Normal 80.0-100.0 [facility] Comment on above: Performed By: #### 2 [id number] #### [facility] [address] [place] [address] Monocytes (Bld) [#/Vol] 0.6 E9/L Normal 0.2-1.0 [facility] Comment on above: Performed By: #### 2 [id number] #### [facility] [address] [place] [address] Neutrophils (Bld) [#/Vol] 8.1 E9/L High 2.0-7.5 [facility] Comment on above: Performed By: #### 2 [id number] #### [facility] [address] [place] [address] Neutrophils/100 WBC (Bld) 73.8 % Normal 36.0-75.0 [facility] Comment on above: Performed By: #### 2 [id number] #### [facility] [address] [place] [address] Platelet mean volume (Bld) [Entitic vol] 8.4 fL Normal 6.4-10.8 [facility] Comment on above: Performed By: #### 2 [id number] #### [facility] [address] [place] [address] Platelets (Bld) [#/Vol] 293.0 E9/L Normal 150.0-500.0 [facility] Comment on above: Performed By: #### 2 [id number] #### [facility] [address] [place] [address] RBC (Bld) [#/Vol] 4.5 E12/L Normal 4.3-5.9 [facility] Comment on above: Performed By: #### 2 [id number] #### [facility] [address] [place] [address] WBC corrected for nucl RBC Auto (Bld) [#/Vol] 10.9 E9/L Normal 4.0-11.0 [facility] Comment on above: Performed By: #### 2 [id number] #### [facility] [address] [place] [address] CHEMISTRYOrdered By: SYSTEM SYSTEM on 02-14-2024 Troponin HS 2.60 pg/mL Low 10.10 - 27.10 pg/mL [facility] Comment on above: Interpretive Data: T he 95% CI (Confidence Interval) PPV (Positive Predictive Value) for myocardial infarction in females is 38 pg/mL, in males 51 pg/mL. The results should be used in conjunction with clinical conditions of myocardial infarction. (Access High Sensitivity Troponin I Instructions For Use, Katlyn Lampasas, October 2017) Albumin [Mass/Vol] 3.8 g/dL Normal 3.3 - 5.0 gm/dL [facility] Albumin/Globulin [Mass ratio] 1.2 {ratio} Normal 1.1 - 2.2 [facility] ALP [Catalytic activity/Vol] 84 [iU]/d Normal 21 - 98 Int._Unit/L [facility] ALT No additional P-5'-P [Catalytic activity/Vol] 18 [iU]/d Normal 6 - 46 Int._Unit/L [facility] Anion gap [Moles/Vol] 10 mmol/L Normal 6 - 16 mEq/L R emisol Chem AST [Catalytic activity/Vol] 17 [iU]/d Normal 5 - 43 Int._Unit/L [facility] Bilirubin [Mass/Vol] 0.4 mg/dL Normal 0.0 - 1 .1 mg/dL [facility] Bilirubin.direct [Mass/Vol] 0.1 mg/dL Normal 0.0 - 0.4 mg/dL [facility] Bilirubin.indirect [Mass or moles/Vol] 0.3 mg/dL Normal 0.1 - 0.9 mg/dL [facility] Calcium [Mass/Vol] 8.4 mg/dL Low 8.9 - 11. 1 mg/dL [facility] Chloride [Moles/Vol] 105 mmol/L Normal 101 - 1 11 mmol/L [facility] CO2 [Moles/Vol] 29 mmol/L Normal 21 - 31 mmol/L [facility] Creatinine [Mass/Vol] 0.7 mg/dL Normal 0.5 - 1.3 mg/dL [facility] eGFR 107 mL/min/1.73 m2 Normal >=59mL/mi n/1 .73 m2 [facility] Globulin (S) [Mass/Vol] 3.2 g/dL Normal 1.4 - 4.0 gm/dL [facility] Glucose [Mass/Vol] 82 mg/dL Normal 55 - 199 mg/dL [facility] Lipase [Catalytic activity/Vol] 9 U/L Low 13 - 58 unit/L [facility] Potassium [Moles/Vol] 4.0 mmol/L Normal 3.5 - 5.3 mmol/L [facility] Protein [Mass/Vol] 7.0 g/dL Normal 6.0 - 7.8 gm/dL [facility] Sodium [Moles/Vol] 140 mmol/L Normal 135 - 145 mmol/L [facility] Troponin HS 2.60 pg/mL Low 10.10 - 27.10 pg/mL [facility] Comment on above: Interpretive Data: T he 95% CI (Confidence Interval) PPV (Positive Predictive Value) for myocardial infarction in females is 38 pg/mL, in males 51 pg/mL. The results should be used in conjunction with clinical conditions of myocardial infarction. (Access High Sensitivity Troponin I Instructions For Use, Katlyn Lampasas, October 2017) Urea nitrogen [Mass/Vol] 15 mg/dL Normal 5 - 21 mg/dL [facility] Urea nitrogen/Creatinine [Mass ratio] 21 mg/mg High 10 - 20 [facility] COAGULATIONOrdered By: Vanna chantelle Fairchild on 02-14-2024 aPTT Coag (PPP) [Time] 31.4 s Normal 25.1 - 36.5 second(s) [facility] Comment on above: Interpretive Data: Tami leigh 15 days - 4 weeks 1 - 5 months 6 - 11 months 1 - 5 years 6 - 10 years 11 - 17 years PTT Mean: 35.4 (27.6-45.6) Mean: 33.5 (24.8-40.7) Mean: 32.4 (25.1-40.7) Mean: 31.6 (24.0-39.2) Mean: 31.6 (26.9-38.7) Mean: 31.0 (24.6-38.4) Pediatric Reference ranges were obtained from a study by monique Zavala prepared from 1437 samples obtained at 7 different centers using the same coagulation reagent and instrumentation as [facility] Currently there are no coagulation studies available worldwide for children to 14 days, and no normal ranges. Heparin therapeutic range (represented by Anti-Factor Xa activity of 0.2 - 0.4 U/mL) corresponds to PTT of 56.6 - 109.0 sec. INR Coag (PPP) [Relative time] 0.95 {INR} Invalid Interpretation Code [facility] Comment on above: Interpretive Data: I NR results are specifically intended to assess patients stabilized on long-term Anticoagulation therapy suggested INR s Less Intensive Anticoagulation 2.0 3.0 Conventional Range 3.0 4.5 PT Coag (PPP) [Time] 10.6 s Normal 9.4 - 1 2.5 second(s) [facility] Comment on above: Interpretive Data: [...] were obtained from a study by Chidi Paris, et al. prepared from 1437 samples obtained at 7 different centers using the same coagulation reagent and instrumentation as [facility] Currently there are no coagulation studies available worldwide for children to 14 days, and no normal ranges. CTA Cheston 02-14-2024 CTA Chest Exam Date/Time: 02/14/2024 15:19 EST Reason for Exam: Pulmonary embolism (PE) suspected, high prob;Other (please specify) Report IMPRESSION: NO PULMONARY EMBOLISM. GROUNDGLASS OPACITIES OF THE BILATERAL LOWER LOBES LIKELY REPRESENT ATELECTASIS BUT MAY BE INFECTIOUS/INFLAMMATORY IN ETIOLOGY. EXAM: CTA Chest History: Cough. Shortness breath. Technique: Multiple axial images were obtained of the thorax from the thoracic inlet through the upper abdomen With IV contrast. Multiplanar reformats were obtained including coronal maximum intensity projection images (MIPS). Unless otherwise stated, incidental findings identified in this report do not require routine follow-up imaging. Comparison: Chest radiograph performed earlier on the same date Findings: Visualized portion of the thyroid gland is within normal limits. No axillary, mediastinal, or hilar lymphadenopathy. No thoracic aortic aneurysm or dissection. No pulmonary embolism. Heart size is within normal limits. No significant pericardial effusion. No coronary artery calcifications noted. Esophagus is within normal limits. No pulmonary nodule or mass. No consolidation, pleural effusion, or pneumothorax. Nonspecific groundglass opacities in the bilateral lower lobes. Visualized upper abdomen demonstrates no acute abnormality. Stable bilateral adrenal adenomas. No acute osseous abnormality. All CT scans at this facility use dose modulation, iterative reconstruction, and/or weight based dosing when appropriate to reduce radiation dose to as low as reasonably achievable. Report Ordering Provider: Jorge Mcintosh FINAL REPORT Dictated: 02/14/2024 3:28 pm Francisco J Mccoy DO Signed (Electronic Signature): 02/14/2024 3:28 pm Signed by: Francisco J Mccoy DO Transcribed by: KIERRA Technologist: SAMANTHA Technical Comments GFR (mL/min/1/73m2) >60 Contrast: Isovue 370 Contrast amount in ml's: 66 Normal [facility] ED Clinical Summaryon 2023 ED Clinical Summary ED Clinical Summary [address] [address] ED Clinical Summary Person Information Name: DEMARCUS, JERADJORGE [facility] Age: 48 Years : 1975 Sex: Female Language: Cambodian PCP: Cheyanne Rincon Marital Status: Visit Id: Visit Reason: Post surgical problem; Shortness of breath; Cough; SOB Speciality: Acuity: 2 Enc Type: Emergency Med Service: Emergency Arrival: 02/14/2024 12:14:28 Discharge: 02/14/2024 15:53:16 LOS: 000 03:39 Checkin: 02/14/2024 12:14:28 Checkout: 02/14/2024 15:53:16 Dispo Type: Home (Routine DC) EVENTS: Event Name Event Status Request Date/Time Start Date/Time Complete Date/Time Arrive Complete 02/14/2024 12:14:28 02/14/2024 12:14:28 02/14/2024 12:14:28 Document Home Meds Request 02/14/2024 12:14:28 Triage Complete 02/14/2024 12:14:28 02/14/2024 12:22:34 02/14/2024 12:22:34 Bed Assign Complete 02/14/2024 12:16:13 02/14/2024 12:16:13 02/14/2024 12:16:13 Dr Exam Complete 02/14/2024 12:16:13 02/14/2024 12:24:43 02/14/2024 12:24:43 RN Exam Complete 02/14/2024 12:16:13 02/14/2024 13:14:39 02/14/2024 13:14:39 EKG Complete 02/14/2024 12:16:39 02/14/2024 12:20:29 Registration Complete 02/14/2024 12:24:43 02/14/2024 12:59:03 02/14/2024 12:59:03 X-Ray Complete 02/14/2024 12:50:50 02/14/2024 12:52:36 02/14/2024 13:01:55 Reg Complete Request 02/14/2024 12:59:03 Reg Bed Request Complete 02/14/2024 12:59:03 02/14/2024 12:59:03 02/14/2024 12:59:03 Wet Read Complete 02/14/2024 13:01:55 02/14/2024 13:14:30 02/14/2024 13:14:30 Meds Admin Complete 02/14/2024 13:14:16 02/14/2024 14:15:10 RT Tx/ABG Request 02/14/2024 13:14:16 RT Tx/ABG Request 02/14/2024 13:14:16 Pending Labs Complete 02/14/2024 13:16:51 02/14/2024 15:23:46 Lab Complete 02/14/2024 13:16:51 02/14/2024 13:52:13 Patient Care Request 02/14/2024 13:16:51 RT Request 02/14/2024 13:16:51 CT Complete 02/14/2024 13:16:51 02/14/2024 13:59:43 02/14/2024 15:19:07 Pending Labs Complete 02/14/2024 13:27:52 02/14/2024 13:27:52 02/14/2024 13:52:13 Lab Complete 02/14/2024 13:27:52 02/14/2024 13:27:52 02/14/2024 13:52:13 Pending Labs Complete 02/14/2024 13:31:07 02/14/2024 13:31:07 02/14/2024 13:31:07 Meds Admin Complete 02/14/2024 15:37:05 02/14/2024 15:46:11 Discharge Complete 02/14/2024 15:41:38 02/14/2024 15:53:21 02/14/2024 15:53:21 Transfer Complete 02/14/2024 15:53:21 02/14/2024 15:53:21 02/14/2024 15:53:21 ADDRESS: [address] [place] [id number] PHYS DOC NOTES: MEDICAL INFORMATION: Prescriptions Given: New Medications [id number], [address] [place], [place] [id number], [phone] albuterol (Albuterol (Eqv-ProAir HFA) 90 mcg/inh inhalation aerosol) 2 Puffs Inhalation every 6 hours for 7 Days. Refills: 0. azithromycin (azithromycin 250 mg Tab) 250 Milligram By Mouth As Directed. Take two tabs by mouth on day one, then one tab daily. Refills: 0. Medications to Continue Taking That Have Changed [facility] #[id number], [address] [place], [place] [id number], [phone] START: predniSONE (predniSONE 20 mg Tab) 3 By Mouth every day. Refills: 0. Other Medications START: predniSONE (predniSONE 10 mg Tab) 1 Tablets By Mouth As Directed. Take 3 tabs by mouth daily x3 days, then 2 tabs daily x3 days, then 1 tab daily x3 days.. Refills: 0. Medications to Continue with No Changes Other Medications cyclobenzaprine (cyclobenzaprine 10 mg Tab) 1 Tablets By Mouth 3 times a day as needed for spasm. Refills: 0. dicyclomine (Bentyl 10 mg Cap) 2 Capsules By Mouth 4 times a day. Refills: 0. diflunisal (diflunisal 500 mg Tab) 1 Tablets By Mouth every 12 hours. Refills: 0. fluoxetine (FLUoxetine 60 mg oral tablet) TAKE 1 TABLET BY MOUTH EVERY DAY. Refills: 1. ibuprofen (ibuprofen 800 mg Tab) 1 Tablets By Mouth 3 times a day. Refills: 0. lidocaine topical (lidocaine Top 5% film Patch) 1 Patches Topical every day. apply 12 hours on and 12 hours off daily. Refills: 0. lidocaine topical (Lidoderm 5% Patch) 1 Patches Topical every day. apply 12 hours on and 12 hours off daily. Refills: 0. ondansetron (Zofran 4 mg Tab) 1 Tablets By Mouth every 6 hours as needed Nausea. Take one tab by mouth every six hours as needed for nausea. Refills: 0. PATIENT EDUCATION INFORMATION: Instructions: Follow up: With: Address: When: Cheyanne Post, [address], [employer] [address] [address] Business (1) In 3 days DIAGNOSIS: Pleurisy; Pneumonia Normal [facility] ED Note-Physicianon 02-14-20 ED Note-Physician ED Note-Physician Basic Information Time Seen: Jorge Mcintosh DO 02/14/2024 12:24 Chief Complaint Pt states that starting after her surgery at on 02/06/24 she started having a cough that has just became worse. Pt stating today she has became short of breath right side only. History of Present Illness 48 female presents emergency department with cough and shortness of breath. Patient states that she had back surgery on February 05 at [facility]. Shortly after this she developed a cough that has become worse. She is now describing some discomfort in the right side of her chest with some associated wheezing and feeling shortness of breath as well. Patient denies any history of pulmonary disease no formal diagnosis of COPD or emphysema but she is a smoker. No abdominal pain no nausea vomiting diarrhea no pain or swelling into her legs. Patient has no DVT or PE risk factors other than her recent surgery. She denies any substernal chest pain. No other aggravating or relieving factors no other associated symptoms no other prior treatments or complaints. Family: Reviewed and noncontributory Social: lives at home Review of systems negative unless otherwise specified in the HPI. Physical Exam Vitals & Measurements T: 36.9 ???C(Oral) HR: 100(Peripheral) RR: 22 BP: 144/90 SpO2: 99% HT: 160 cm WT: 114.8 kg BMI: 44.84 General: The patient appears well and in no apparent distress. Patient is resting comfortably on cart. Skin: Warm, dry, no pallor noted. Head: Normocephalic, atraumatic Neck: No JVD Eye: PERRLA, EOMI ENT: Moist mucus membranes Cardiovascular: Slightly tachycardic rate regular rhythm with normal peripheral perfusion Respiratory: No respiratory distress no accessory muscle use no obvious audible wheezing Chest Wall: no deformity Musculoskeletal: normal ROM, no deformity, no swelling GI: Soft no obvious distention. No rebound or rigidity. No guarding. No tenderness. Neurological: A&O moves all extremities equal strength and symmetry Psychiatric: Cooperative and appropriate Medical Decision Making Workup in the ER has been reviewed and noted. CT of the chest was performed because of the patient's pleuritic symptoms and recent surgery. This was negative for PE however there is evidence of groundglass opacity early infiltrate. Patient is treated here with breathing treatment she does feel better she is given Toradol for pain and she is discharged home on Zithromax prednisone and albuterol follow-up in the outpatient setting return to ER symptoms change or worsen. She is comfortable with this plan. Assessment/Plan Pleurisy (R09.1: Pleurisy) Pneumonia (J18.9: Pneumonia, unspecified organism) Orders: albuterol, 2 puff(s), Inhalation, q6hr for 7 day(s), 6.7 gm, Refill(s) 0, [facility]/pharmacy #[id number], 160, cm, 02/14/24 12:22:00 EST, Height/Length Dosing, 114.8, kg, 02/14/24 12:22:00 EST, Weight Dosing albuterol-ipratropium, 3 mL, Soln-Inh, Inhalation, Once, Stop date 02/14/24 13:14:00 EST, STAT, Start date 02/14/24 13:14:00 EST azithromycin, 250 mg, Oral, As Directed, Take two tabs by mouth on day one, then one tab daily, # 6 tab(s), Refills(s) 0, Pharmacy: [facility]/pharmacy #[id number], 160, cm, 02/14/24 12:22:00 EST, Height/Length Dosing, 114.8, kg, 02/14/24 12:22:00 EST, Weight Dosing ketorolac, 30 mg = 1 mL, Injection, IV, Once, Stop date 02/14/24 15:36:00 EST, STAT, Start date 02/14/24 15:36:00 EST, 02/14/24 15:36:00 EST predniSONE, 3, Oral, Daily, # 15 tab(s), Refills(s) 0, Pharmacy: [facility]/pharmacy #[id number], 160, cm, 02/14/24 12:22:00 EST, Height/Length Dosing, 114.8, kg, 02/14/24 12:22:00 EST, Weight Dosing Basic Metabolic Panel CBC w/ Auto Diff CTA Chest ED Cardiac Monitoring eGFR Extra SST Tube Hepatic Function Panel Lipase Level Oxygen Saturation Oxygen Therapy PT & PTT Saline Lock Insert Troponin 0 Hr. Troponin 1 Hr. XR Chest 2 Views Medications Administered Given DuoNeb 2.5 mg-0.5 mg/3 mL Soln-Inh, 3 mL, Inhalation Disposition Plan Discharge Prescription List Prescriptions Albuterol (Eqv-ProAir HFA) 90 mcg/inh inhalation aerosol, 2 puff(s), Inhalation, q6hr azithromycin 250 mg Tab, 250 mg, Oral, As Directed predniSONE 20 mg Tab, 3, Oral, Daily Follow-up With When Contact Information Cheyanne Rosas In 3 days [address] [facility], [facility] [address] [place] [id number] Business (1) Additional Instructions: Problem List/Past Medical History Ongoing Arthritis of [...] Bipolar Continuous opioid dependence Hepatitis C Liver (more content not included)... Normal [facility] Comment on above: Result Comment: Elec tronically Signed By: Jorge Mcintosh DO\.br\Date and Time Signed: 02/14/24 15:43 EST ED Patient Education Noteon 02-14-2024 ED Patient Education Note ED Patient Education Note Normal [facility] ED Patient Summaryon 024 ED Patient Summary ED Patient Summary [address] [address] Patient Discharge Instructions Person Information Name: JERAD TRACY Age: 48 Years Arrival Date: 02/14/2024 12:14:28 Discharge Diagnosis: Pleurisy; Pneumonia Primary Care Physician: Cheyanne Rincon Provider Information Primary Provider: Jorge Mcintosh DO [employer] Kitchen:None The exam and treatment you received in the Emergency Department were for an urgent problem and are not intended as complete care. It is important that you follow up with a doctor, nurse practitioner, or physician???s insurance administrative assistant for ongoing care. If your symptoms become worse or you do not improve as expected and you are unable to reach your usual health care provider, you should return to the Emergency Department. We are available 24 hours a day. JERAD TRACY has been given the following list of patient education materials, prescriptions and follow-up instructions: Follow-up Instructions: With: Address: When: Cheyanne Ralph [address], [address], [place] [id number] Business (1) In 3 days In the event that this physician does not participate in your insurance network, please consult with your insurance company to find a nearby participating provider. Patient Education Materials: A MESSAGE TO ALL PATIENTS REGARDING OPIOIDS PRESCRIPTION OPIOIDS: WHAT YOU NEED TO KNOW Prescription opioids can be used to help relieve uewfdmxo-vj-exaqgo pain and are often prescribed following a [...] as well, even when taken as directed: ??? Tolerance???meaning you might need to take more of the medication for the same pain relief ??? Physical dependence???meaning you have symptoms of withdrawal when a medication is stopped ??? Increased sensitivity to pain ??? Constipation ??? Nausea, vomiting, and dry mouth ??? Sleepiness and dizziness ??? Confusion ??? Depression ??? Low levels of testosterone that can result in lower sex drive, energy, and strength ??? Itching and sweating RISKS ARE GREATER WITH: ??? History of drug misuse, substance use disorder, or overdose ??? Mental health conditions (such as depression or anxiety) ??? Sleep apnea ??? Older age (65 years and older) ??? Avoid alcohol while taking prescription opioids. Also, unless specifically advised by your health care provider, medications to avoid include: ??? Benzodiazepines (such as Xanax or Valium) ??? Muscle relaxants (such as Soma or Flexeril) ??? Hypnotics (such as Ambien or Lunesta) ??? Other prescription opioids KNOW YOUR OPTIONS Talk to your health care provider about ways to manage your pain that don???t involve prescription opioids. Some of these options may actually work better and have fewer risks and side effects. Options may include: ??? Pain relievers such as acetaminophen, ibuprofen, and naproxen ??? Some medication that are also used for depression or seizures ??? Physical therapy and exercise ??? Cognitive behavioral therapy, a psychological, goal-directed approach, in which patients learn how to modify physical, behavioral, and emotional triggers of pain and stress. IF YOU ARE PRESCRIBED OPIOIDS FOR PAIN: ??? Never take opioids in greater amounts or more often than prescribed. ??? Follow up with your primary health care provider. o Work together to create a plan on how to manage your pain. o Talk about ways to help manage your pain that don???t involve prescription opioids. o Talk about any and all concerns and side effects. ??? Help prevent misuse and abuse o Never sell or share prescription opioids. o Never use another person???s prescription opioids. ??? Store prescription opioids in a secure place and out of reach of others (this may include visitors, children, friends, and family). ??? Safely dispose of unused prescription opioids: Find your community drug take-back program or your pharmacy mail-back program, or flush them down the toilet, following guidance from the Food and Drug Administration (www.fda.gov/Drugs/Reso urcesForYou). ??? Visit www.cdc.gov/drugoverdos e to learn about the risks of opioids abuse and overdose. ??? If you believe you may be struggling with addiction, tell your health resident care provider and ask for guidance or call [facility] (more content not included)... Normal [facility] HEMATOLOGYOrdered By: SYSTEM SYSTEM on 02-14-2024 Basophils/100 WBC (Bld) 0.5 % Normal 0.0 - 2.0 % Remisol Heme Basophils/Leukocytes Auto (Bld) [Pure # fraction] 0.1 E9/L Normal 0.0 - 0.2 E9/L Remisol Heme Eosinophils (Bld) [#/Vol] 0.3 E9/L Normal 0.0 - 0.5 E9/L Remisol Heme Eosinophils/100 WBC (Bld) 3.0 % Normal 0.0 - 8.0 % Remisol Heme Erythrocyte distribution width (RBC) [Ratio] 14.6 % High 10.9 - 14.2 % Remisol Heme Hematocrit (Bld) [Volume fraction] 40.7 % Normal 34.0 - 46.0 % Remisol Heme Hemoglobin (Bld) [Mass/Vol] 13.6 g/dL Normal 12.0 - 16.0 gm/dL Remisol Heme Lymphocytes (Bld) [#/Vol] 1.9 E9/L Normal 1.0 - 4.0 E9/L Remisol Heme Lymphocytes/100 WBC (Bld) 17.5 % Normal 14.0 - 50.0 % Remisol Heme MCH (RBC) [Entitic mass] 30.4 pg Normal 27.0 - 34.0 pg Remisol Heme MCHC (RBC) [Mass/Vol] 33.4 g/dL Normal 31.4 - 36.0 gm/dL Remisol Heme MCV (RBC) [Entitic vol] 90.9 fL Normal 80.0 - 100.0 fL Remisol Heme Monocytes (Bld) [#/Vol] 0.6 E9/L Normal 0.2 - 1.0 E9/L Remisol Heme Monocytes/100 WBC (Bld) 5.2 % Normal 4.0 - 14.0 % Remisol Heme Neutrophils (Bld) [#/Vol] 8.1 E9/L High 2.0 - 7.5 E9/L Remisol Heme Neutrophils/100 WBC (Bld) 73.8 % Normal 36.0 - 75.0 % Remisol Heme Platelet mean volume (Bld) [Entitic vol] 8.4 fL Normal 6.4 - 10.8 fL Remisol Heme Platelets (Bld) [#/Vol] 293.0 E9/L Normal 150.0 - 500.0 E9/L Remisol Heme RBC (Bld) [#/Vol] 4.5 E12/L Normal 4.3 - 5.9 E12/L Remisol Heme WBC corrected for nucl RBC Auto (Bld) [#/Vol] 10.9 E9/L Normal 4.0 - 11.0 E9/L Remisol Heme Hep Func Panelon 02-14-2024 Albumin [Mass/Vol] 3.8 g/dL Normal 3.3-5.0 [facility] Comment on above: Performed By: #### 2 [id number] #### [facility] [address] [place] [address] Albumin/Globulin (S) [Mass conc ratio] 1.2 Normal 1.1-2.2 [facility] Comment on above: Performed By: #### 2 [id number] #### [facility] [address] [place] [address] ALP [Catalytic activity/Vol] 84 Int._Unit/L Normal 21-98 [facility] Comment on above: Performed By: #### 2 [id number] #### [facility] [address] [place] [address] ALT No additional P-5'-P [Catalytic activity/Vol] 18 Int._Unit/L Normal 6-46 [facility] Comment on above: Performed By: #### 2 [id number] #### [facility] [address] [place] [address] AST [Catalytic activity/Vol] 17 Int._Unit/L Normal 5-43 [facility] Comment on above: Performed By: #### 2 [id number] #### [facility] [address] [place] [address] Bilirubin [Mass/Vol] 0.4 mg/dL Normal 0.0-1.1 [facility] Comment on above: Performed By: #### 2 [id number] #### [facility] [address] [place] [address] Bilirubin.direct [Mass/Vol] 0.1 mg/dL Normal 0.0-0.4 [facility] Comment on above: Performed By: #### 2 [id number] #### [facility] [address] [place] [address] Bilirubin.indirect [Mass or moles/Vol] 0.3 mg/dL Normal 0.1-0.9 [facility] Comment on above: Performed By: #### 2 [id number] #### [facility] [address] [place] [address] Globulin (S) [Mass/Vol] 3.2 g/dL Normal 1.4-4.0 [facility] Comment on above: Performed By: #### 2 [id number] #### [facility] [address] [place] [address] Protein [Mass/Vol] 7.0 g/dL Normal 6.0-7.8 [facility] Comment on above: Performed By: #### 2 [id number] #### [facility] [address] [place] [address] Lipase Levelon 02-14-2024 Lipase [Catalytic activity/Vol] 9 U/L Low 13-58 [facility] Comment on above: Performed By: #### 2 [id number] #### [facility] [address] [place] [address] PT & PTTon 02-14-2024 aPTT Coag (PPP) [Time] 31.4 second(s) Normal 25.1-36.5 [facility] Comment on above: Result Comment: Para [...] the same coagulation reagent and instrumentation as [facility] Currently there are no coagulation studies available worldwide for children to 14 days, and no normal ranges. Heparin therapeutic range (represented by Anti-Factor Xa activity of 0.2 - 0.4 U/mL) corresponds to PTT of 56.6 - 109.0 sec. Performed By: #### 1 [id number] #### [facility] [address] [place] [address] INR Coag (PPP) [Relative time] 0.95 {INR} Invalid Interpretation Code [facility] Comment on above: Result Comment: INR results are specifically intended to assess patients stabilized on long-term Anticoagulation therapy suggested INR???s ???Less Intensive Anticoagulation??? 2.0 ??? 3.0 Conventional Range 3.0 ??? 4.5 Performed By: #### 1 [id number] #### [facility] [address] [place] [address] PT Coag (PPP) [Time] 10.6 second(s) Normal 9.4-12.5 [facility] Comment on above: Result Comment: 15 d ays - 4 weeks 1 - 5 months 6 -11 months 1 ??? 5 years 6 ??? 10 years 11 -17 years Mean: 11.2 (9.5 ??? 12.6) Mean: 11.0 (9.7 ??? 12.8) Mean: 11.0 (9.8 ??? 13.0) Mean: 11.3 (9.9 ??? 13.4) Mean: 11.7 (10.0 ??? 14.6) Mean: 11.8 (10.0 - 14.1) Pediatric Reference ranges were obtained from a study by monet Zavala al. prepared from 1437 samples obtained at 7 different centers using the same coagulation reagent and instrumentation as [facility]. Currently there are no coagulation studies available worldwide for children to 14 days, and no normal ranges. Performed By: #### 1 [id number] #### [facility] [address] [place] [address] Troponin 0 Hr.on 02-14-2024 Troponin HS 2.60 pg/mL Low 10.10-27.10 [facility] Comment on above: Result Comment: The 95% CI (Confidence Interval) PPV (Positive Predictive Value) for myocardial infarction in females is 38 pg/mL, in males 51 pg/mL. The results should be used in conjunction with clinical conditions of myocardial infarction. (Access High Sensitivity Troponin I Instructions For Use, Katlyn Edson, October 2017) Performed By: #### 1 [id number] #### [facility] [address] [place] [address] Troponin 1 Hr.on 02-14-2024 Troponin HS 2.60 pg/mL Low 10.10-27.10 [facility] Comment on above: Result Comment: The 95% CI (Confidence Interval) PPV (Positive Predictive Value) for myocardial infarction in females is 38 pg/mL, in males 51 pg/mL. The results should be used in conjunction with clinical conditions of myocardial infarction. (Access High Sensitivity Troponin I Instructions For Use, Katlyn Lampasas, October 2017) Performed By: #### 1 [id number] #### [facility] [address] [place] [address] XR Chest 2 Viewson XR Chest 2 Views Exam Date/Time: 02/14/2024 13:01 EST Reason for Exam: Difficulty breathing Report IMPRESSION: No acute findings, within limits of shallow inspiration. EXAMINATION: XR Chest 2 Views Clinical History: Difficulty breathing. Comparison: 01/23/2024. RESULT: Shallow inspiration. No focal consolidation. No pleural effusion. No pneumothorax. Normal cardiomediastinal silhouette. No acute osseous findings. Ordering Provider: Jorge Mcintosh FINAL REPORT Dictated: 02/14/2024 2:28 pm Gillian Gamboa MD Signed (Electronic Signature): 02/14/2024 2:28 pm Signed by: Gillian Gamboa MD Transcribed by: KIERRA Technologist: KIERRAR Technical Comments Radiation Dose: Ka,r in mGy = . DAP = . Normal [facility] eGFRon 02-14-2024 eGFR 107 mL/min/1.73 m2 Normal >=59 [facility] Comment on above: Performed By: #### 1 [id number] #### [facility] [address] [place] [address] ED Note-Physicianon 02-07-20 ED Note-Physician ED Note-Physician Basic Information Time Seen: Manuel Naik PA-C 02/04/2024 17:03 Chief Complaint Pt states that she is having back pain. Pt states that she is having back surgery in two days for a buldging disk. History of Present Illness Patient is a 48-year-old female that presents today for evaluation of acute on chronic back pain. She states that she has having surgery in 2 days on bulging disks in her lower back with a [facility] neurosurgeon. She states that she is unable to take her anti-inflammatories because of the upcoming surgery and therefore her pain is increasing. She does note radicular symptoms on the left greater than right leg. She denies any saddle anesthesia, loss of bowel or bladder control, lower extremity weakness. Review of Systems No other aggravating or relieving factors no other associated symptoms no other prior treatments or complaints. Family: Reviewed and noncontributory Social: lives at home Review of systems negative unless otherwise specified in the HPI. Physical Exam Vitals & Measurements T: 36.5 ???C(Oral) HR: 102(Peripheral) RR: 18 BP: 149/97 SpO2: 99% HT: 160 cm WT: 114.8 kg BMI: 44.84 Vital Signs reviewed and noted. General: Alert, no acute distress, patient resting comfortably Skin: warm, intact, no pallor noted Head: Normocephalic, atraumatic Eye: Normal conjunctiva Cardiac: Normal peripheral perfusion Respiratory: No acute distress Musculoskeletal: No deformity, full ROM. Lumbar spine: There is moderate tenderness to palpation throughout the lumbar spine. There is paraspinal musculature tenderness noted with some spasming of the soft tissues. Negative straight leg raise. No step-off or crepitus appreciated. Intact strength and sensation to bilateral lower extremities. Neurological: alert and oriented, normal sensory and motor observed. Psychiatric: Cooperative Medical Decision Making Patient is a 48-year-old female who presents today for evaluation of acute on chronic back pain. She is scheduled to have another surgery on 2 bulging disks in her lower back in 2 days with [facility] neurosurgery. She is unable to take anti-inflammatories because of this and her pain is increasing. Denies any signs or symptoms concerning for cauda equina syndrome. On exam patient is afebrile nontoxic-appearing. She does have moderate tenderness palpation throughout the lumbar spine. Intact strength and sensation of bilateral lower extremities. Given the chronicity of her pain I did speak with the patient that I will not be able to start her on any narcotic pain medication as an outpatient. Provided her with a dose of IM morphine and oral tizanidine here in the ED and will start her back on tizanidine as an outpatient. She will follow-up with her neurosurgeon for further evaluation and management and surgery in 2 days. Return to ED precautions were reviewed with the patient at length. Assessment/Plan Back pain (M54.9: Dorsalgia, unspecified) Lumbar radiculopathy (M54.16: Radiculopathy, lumbar region) Lumbar spinal stenosis (M48.061: Spinal stenosis, lumbar region without neurogenic claudication) Orders: morphine, 4 mg = 1 mL, Injection, IntraMuscular, Once, Stop date 02/04/24 17:34:00 EST, STAT, Start date 02/04/24 17:34:00 EST, 02/04/24 17:34:00 EST tizanidine, 2 mg = 0.5 tab(s), Tab, Oral, Once, Stop date 02/04/24 17:34:00 EST, STAT, Start date 02/04/24 17:34:00 EST, 02/04/24 17:34:00 EST tizanidine, 2 mg = 1 tab(s), Oral, q8hr, X 7 day(s), # 21 tab(s), Refills(s) 0, Pharmacy: [facility]/pharm[facility] #[id number], 160, cm, 02/04/24 17:06:00 EST, Height/Length Dosing, 114.8, kg, 02/04/24 17:06:00 EST, Weight Dosing Medications Administered Given morphine 4 mg/mL Inj, 4 mg, IntraMuscular tiZANidine 4 mg Tab, 2 mg, Oral Disposition Plan Patient Discharge Condition Stable Discharge Disposition Home Discharge Prescription List Prescriptions tiZANidine 2 mg Tab, 2 mg= 1 tab(s), Oral, q8hr Follow-up With When Contact Information Cheyanne Rosas In 3 days 02/07/2024 EST [address] [facility], [address] [address]- Business (1) Additional Instructions: Patient Education Acute Back Pain, Adult Attestation Patient seen and evaluated by the physician insurance administrative assistant. Attending physician was present in the emergency department and supervised care. This visit was performed by both the physician and an APC. I performed all aspects of the MDM as documented. This report was transcribed using voice recognition software. Every effort was made to ensure accuracy, however, inadvertently computerized cutter machine mistakes may be present. Appropriate healthcare PPE was used in evaluating this patient. The patient was placed in a mask. The healthcare provider was wearing mask, gloves, and utilizing proper hand hygiene. All equipment was properly cleansed. I performed a substantive part of the MDM during the patient???s E/M visit. I personally made or approved the docume (more content not included)... Normal [facility] Comment on above: Result Comment: Elec tronically Signed By: Manuel Naik PA-C\.br\Date and Time Signed: 02/04/24 20:45 EST\.br\Electronically Co-Signed By: Jorge Mcintosh DO\.br\Date and Time Co-Signed: 02/07/24 06:59 EST Blood type and Indirect anti body screen panel (Bld)on 02-06-2024 ABO group Nom (Bld) O [facility] Blood group antibody screen Ql Negative [facility] D Ag Ql (Bld) Positive [facility] ABO group Nom (Bld) O [facility] Comment on above: Performed By: #### 3 [id number] #### DINORA Rausch ([id number]) [facility] ([facility]) [address] [place] [address] Blood group antibody screen Ql Negative [facility] Comment on above: Performed By: #### 3 [id number] #### DINORA Rausch ([id number]) [facility] ([facility] [address] [place] [address] D Ag Ql (Bld) Positive [facility] Comment on above: Performed By: #### 3 [id number] #### DINORA Rausch ([id number]) [facility] ([facility]) [address] [place] [address] [place] LESS THAN 1 HOURon 2023 FL LESS THAN 1 HOUR These images are not reportable by radiology and will not be interpreted by Radiologists. [facility] RF Unspecified body region L ess than 1 hour Views during surgeryon 02-06-2024 These images are not reportable by radiology and will not be interpreted by Radiologists. IMAGING VERAB/VERIFY ABORHon 024 ABO group Nom (Bld) O [facility] Comment on above: Order Comment: Thi s is for confirming/verifying history of ABORh on file for transfusion of blood products. If this is not for transfusion, please order an ABO/RH [[id number]]. If you have any questions or unsure what to order, please call the blood bank. Performed By: #### V ERAB #### DINORA TIRADO S ([id number]) [facility] ([facility]) [address] [place] [address] D Ag Ql (Bld) Positive Normal [facility] Comment on above: Order Comment: Thi s is for confirming/verifying history of ABORh on file for transfusion of blood products. If this is not for transfusion, please order an ABO/RH [[id number]]. If you have any questions or unsure what to order, please call the blood bank. Performed By: #### V ERAB #### DINORA TIRADO S ([id number]) [facility] ([facility]) [address] [place] [address] [place] VERIFY ABO/Rh Group Teston 1 04-07-2023 ABO group Nom (Bld) O [facility] D Ag Ql (Bld) Positive [facility] ED Clinical Summaryon 2023 ED Clinical Summary ED Clinical Summary [place] [id number] ED Clinical Summary Person Information Name: JERAD TRACY [place] Age: 48 Years : 1975 Sex: Female Language: Cambodian PCP: Cheyanne Rincon Marital Status: Visit Id: Visit Reason: Back pain; BACK PAIN Speciality: Acuity: 4 Enc Type: Emergency Med Service: Emergency Arrival: 02/04/2024 16:57:07 Discharge: 02/04/2024 18:25:49 LOS: 000 01:28 Checkin: 02/04/2024 16:57:07 Checkout: 02/04/2024 18:25:49 Dispo Type: Home (Routine DC) EVENTS: Event Name Event Status Request Date/Time Start Date/Time Complete Date/Time Arrive Complete 02/04/2024 16:57:07 02/04/2024 16:57:07 02/04/2024 16:57:07 Document Home Meds Request 02/04/2024 16:57:07 Triage Complete 02/04/2024 16:57:07 02/04/2024 17:06:25 02/04/2024 17:06:25 Registration Complete 02/04/2024 16:59:52 02/04/2024 16:59:52 02/04/2024 16:59:52 Reg Complete Request 02/04/2024 16:59:52 Reg Bed Request Complete 02/04/2024 16:59:52 02/04/2024 16:59:52 02/04/2024 16:59:52 Bed Assign Complete 02/04/2024 17:00:41 02/04/2024 17:00:41 02/04/2024 17:00:41 Dr Exam Complete 02/04/2024 17:00:41 02/04/2024 17:03:13 02/04/2024 17:03:13 RN Exam Complete 02/04/2024 17:00:41 02/04/2024 17:17:17 02/04/2024 17:17:17 Registration Request 02/04/2024 17:03:13 Dr Exam Complete 02/04/2024 17:04:45 02/04/2024 17:04:45 02/04/2024 17:04:45 Meds Admin Complete 02/04/2024 17:34:35 02/04/2024 17:53:11 Discharge Complete 02/04/2024 17:35:35 02/04/2024 18:26:07 02/04/2024 18:26:07 Transfer Complete 02/04/2024 18:26:07 02/04/2024 18:26:07 02/04/2024 18:26:07 ADDRESS: [place] [id number] PHYS DOC NOTES: MEDICAL INFORMATION: Prescriptions Given: New Medications [id number], [address] [place], [place] [id number], [phone] tizanidine (tiZANidine 2 mg Tab) 1 Tablets By Mouth every 8 hours for 7 Days. Refills: 0. Medications to Continue with No Changes Other Medications cyclobenzaprine (cyclobenzaprine 10 mg Tab) 1 Tablets By Mouth 3 times a day as needed for spasm. Refills: 0. dicyclomine (Bentyl 10 mg Cap) 2 Capsules By Mouth 4 times a day. Refills: 0. diflunisal (diflunisal 500 mg Tab) 1 Tablets By Mouth every 12 hours. Refills: 0. fluoxetine (FLUoxetine 60 mg oral tablet) TAKE 1 TABLET BY MOUTH EVERY DAY. Refills: 1. ibuprofen (ibuprofen 800 mg Tab) 1 Tablets By Mouth 3 times a day. Refills: 0. lidocaine topical (lidocaine Top 5% film Patch) 1 Patches Topical every day. apply 12 hours on and 12 hours off daily. Refills: 0. lidocaine topical (Lidoderm 5% Patch) 1 Patches Topical every day. apply 12 hours on and 12 hours off daily. Refills: 0. ondansetron (Zofran 4 mg Tab) 1 Tablets By Mouth every 6 hours as needed Nausea. Take one tab by mouth every six hours as needed for nausea. Refills: 0. predniSONE (predniSONE 10 mg Tab) 1 Tablets By Mouth As Directed. Take 3 tabs by mouth daily x3 days, then 2 tabs daily x3 days, then 1 tab daily x3 days.. Refills: 0. PATIENT EDUCATION INFORMATION: Instructions: Acute Back Pain, Adult Follow up: With: Address: When: Cheyanne Rosas [address] [place] [address] A, [place] [phone] Business (1) In 3 days 02/07/2024 DIAGNOSIS: Back pain; Lumbar radiculopathy; Lumbar spinal stenosis Normal [facility] ED Patient Summaryon 024 ED Patient Summary ED Patient Summary [address] [address] Patient Discharge Instructions Person Information Name: JERAD TRACY Age: 48 Years Arrival Date: 02/04/2024 16:57:07 Discharge Diagnosis: Back pain; Lumbar radiculopathy; Lumbar spinal stenosis Primary Care Physician: Cheyanne Rincon Provider Information Primary Provider: Jorge Mcintosh DO [employer] Kitchen:Manuel Naik PA-C. The exam and treatment you received in the Emergency Department were for an urgent problem and are not intended as complete care. It is important that you follow up with a doctor, nurse practitioner, or physician???s insurance administrative assistant for ongoing care. If your symptoms [...] Instructions: With: Address: When: Cheyanne Rosas [address] [facility], [facility] A, [address] [phone] Business (1) In 3 days 02/07/2024 In the event that this physician does not participate in your insurance network, please consult with your insurance company to find a nearby participating provider. Patient Education Materials: Acute Back Pain, Adult A MESSAGE TO ALL PATIENTS REGARDING OPIOIDS PRESCRIPTION OPIOIDS: WHAT YOU NEED TO KNOW Prescription opioids can be used to help relieve cwsqulyj-ff-wyybip pain and are often prescribed following a [...] as well, even when taken as directed: ??? Tolerance???meaning you might need to take more of the medication for the same pain relief ??? Physical dependence???meaning you have symptoms of withdrawal when a medication is stopped ??? Increased sensitivity to pain ??? Constipation ??? Nausea, vomiting, and dry mouth ??? Sleepiness and dizziness ??? Confusion ??? Depression ??? Low levels of testosterone that can result in lower sex drive, energy, and strength ??? Itching and sweating RISKS ARE GREATER WITH: ??? History of drug misuse, substance use disorder, or overdose ??? Mental health conditions (such as depression or anxiety) ??? Sleep apnea ??? Older age (65 years and older) ??? Avoid alcohol while taking prescription opioids. Also, unless specifically advised by your health care provider, medications to avoid include: ??? Benzodiazepines (such as Xanax or Valium) ??? Muscle relaxants (such as Soma or Flexeril) ??? Hypnotics (such as Ambien or Lunesta) ??? Other prescription opioids KNOW YOUR OPTIONS Talk to your health care provider about ways to manage your pain that don???t involve prescription opioids. Some of these options may actually work better and have fewer risks and side effects. Options may include: ??? Pain relievers such as acetaminophen, ibuprofen, and naproxen ??? Some medication that are also used for depression or seizures ??? Physical therapy and exercise ??? Cognitive behavioral therapy, a psychological, goal-directed approach, in which patients learn how to modify physical, behavioral, and emotional triggers of pain and stress. IF YOU ARE PRESCRIBED OPIOIDS FOR PAIN: ??? Never take opioids in greater amounts or more often than prescribed. ??? Follow up with your primary health care provider. o Work together to create a plan on how to manage your pain. o Talk about ways to help manage your pain that don???t involve prescription opioids. o Talk about any and all concerns and side effects. ??? Help prevent misuse and abuse o Never sell or share prescription opioids. o Never use another person???s prescription opioids. ??? Store prescription opioids in a secure place and out of reach of others (this may include visitors, children, friends, and family). ??? Safely dispose of unused prescription opioids: Find your community drug take-back program or your pharmacy mail-back program, or flush them down the toilet, following guidance from the Food and Drug Administration (www.fda.gov/Drugs/Reso urcesForYou). ??? Visit www.cdc.gov/drugoverdos e to learn about the risks of opioids abuse and overdose. ??? If you believe you may be strug (more content not included)... Normal [facility] Staphylococcus aureus.methic illin resistant isolateon 01-29-2024 MRSA isol Org specific cx Ql (Nose) Test: Staphylococcus aureus/MRSA colonization, Culture Specimen Source: Nares/Axilla/Groin Specimen Type: Swab Specimen Date: 01/29/2024 1129 Result Date: 01/31/2024 0859 Result Status: Final result Abnormal: No Resulting Lab: [facility] [address] [facility] [address] CULTURE No Staphylococcus aureus isolated [facility] Comment on above: Performed By: #### 5 2969-3 #### JOLENE Cantu ([id number]) [facility] ([facility]) [id number] [place] [address] ED Note-Physicianon 01-27-20 ED Note-Physician ED Note-Physician Basic Information Time Seen: Zhane Castro PA-C 01/25/2024 15:39 Chief Complaint chronic low back pain, worse today History of Present Illness Patient is a 48-year-old female with a history of arthritis, bipolar disorder, and chronic back pain who presents to the ED with worsening lower back pain over the past couple of days. Patient states she is scheduled to have back surgery on 02/05 for herniated disc by a neurosurgeon at [facility]. She notes over the past couple of days she has been worsening pain. Patient denies any known injury or trauma. She notes tingling down the anterior aspect of her left lower extremity, which she states is chronic in nature. Patient denies any fevers, saddle anesthesia, changes urination, or loss of bowel control. Review of Systems A 10 point review of systems is negative except as noted above. Medical and Surgical History: Reviewed and noted Social history: Lives at home Family History: Reviewed. Physical Exam Vitals & Measurements T: 36.6 ???C(Oral) HR: 83(Peripheral) RR: 16 BP: 176/89 SpO2: 100% HT: 160 cm WT: 114.8 kg BMI: 44.84 General: The patient appears well and in no apparent distress. Patient is resting comfortably on cart. Skin: Warm, dry, no pallor noted. Head: Normocephalic, atraumatic Neck: No JVD, no midline spinal tenderness to palpation, mild bilateral lumbar paraspinal tenderness to palpation Eye: PERRLA, EOMI ENT: Moist mucus membranes Cardiovascular: Regular rate normal peripheral perfusion Respiratory: No respiratory distress no accessory muscle use no obvious audible wheezing Musculoskeletal: normal ROM, no deformity, no swelling, plantar and dorsiflexion of ankles intact, flexion/extension of the knees intact, full range of motion of the hips bilaterally GI: Soft no obvious distention. No rebound or rigidity. No guarding. No tenderness. Neurological: A&O moves all extremities equal strength and symmetry, sensation intact bilaterally, neurovascularly intact Psychiatric: Cooperative and appropriate Medical Decision Making Patient is a 48-year-old female with a history of arthritis, bipolar disorder, and chronic back pain who presents to the ED with worsening lower back pain over the past couple of days. Patient is hemodynamically stable and afebrile. She denies saddle anesthesia, changes in urination, or loss of bowel control. Patient is given morphine, Toradol, and Kenalog while in the ED. She has been given a prescription for Flexeril, lidocaine patches, and prednisone taper. She has been given a referral to pain management. She will call her neurosurgeon in the next 2 to 3 days for pain management. She was advised to return to ED with any new or worsening symptoms. Patient is agreeable with the plan and all questions were answered. Assessment/Plan Chronic bilateral low back pain with sciatica (M54.40: Lumbago with sciatica, unspecified side) Other chronic pain (G89.29: Other chronic pain) Orders: cyclobenzaprine, 5 mg = 1 tab(s), Oral, TID, PRN Pain, Take 1 tablet as needed 3 times daily with 1 dose being at bedtime, X 7 day(s), # 21 tab(s), Refills(s) 0, Pharmacy: [facility]/pharmacy #[id number], 160, cm, 01/25/24 15:37:00 EDT, Height/Length Dosing, 114.8, kg, 01/25/24 15... ketorolac, 30 mg = 1 mL, Injection, IntraMuscular, Once, Stop date 01/25/24 16:02:00 EDT, STAT, Start date 01/25/24 16:02:00 EDT, 01/25/24 16:02:00 EDT lidocaine topical, 1 patch(es), Topical, Daily, 7 patch(es), Refill(s) 0, apply 12 hours on and 12 hours off daily, [facility]/pharmacy #[id number], 160, cm, 01/25/24 15:37:00 EDT, Height/Length Dosing, 114.8, kg, 01/25/24 15:37:00 EDT, Weight Dosing morphine, 4 mg = 1 mL, Injection, IntraMuscular, Once, Stop date 01/25/24 16:02:00 EDT, STAT, Start date 01/25/24 16:02:00 EDT, 01/25/24 16:02:00 EDT predniSONE, 10 mg = 1 tab(s), Oral, As Directed, Take 3 tabs by mouth daily x3 days, then 2 tabs daily x3 days, then 1 tab daily x3 days., # 18 tab(s), Refills(s) 0, Pharmacy: [facility]/pharmacy #[id number], 160, cm, 01/25/24 15:37:00 EDT, Height/Length Dosing, 114.8, kg, 11... triamcinolone, 40 mg = 1 mL, Susp-Inj, IntraMuscular, Once, Stop date 01/25/24 16:02:00 EDT, STAT, Start date 01/25/24 16:02:00 EDT, 01/25/24 16:02:00 EDT Medications Administered Given Kenalog 40 mg Injection, 40 mg, IntraMuscular ketorolac 30 mg/mL Inj 1 mL, 30 mg, IntraMuscular morphine 4 mg/mL Inj, 4 mg, IntraMuscular Disposition Plan Patient Discharge Condition stable Discharge Disposition home Discharge Prescription List Prescriptions cyclobenzaprine 5 mg Tab, 5 mg= 1 tab(s), Oral, TID, PRN lidocaine Top 5% film Patch, 1 patch(es), Topical, Daily predniSONE 10 mg Tab, 10 mg= 1 tab(s), Oral, As Directed Follow-up With When Contact Information Pain Clinic: [facility] [phone] In 3 days 01/28/2024 EST Additional Instructions: Call to schedule a follow-up appointment with your neurosurgeon and/or pain management for further management of care. Use (more content not included)... Normal [facility] Comment on above: Result Comment: Elec tronically Signed By: Zhane Castro PA-C\.br\Date and Time Signed: 01/25/24 17:27 EDT\.br\Electronically Co-Signed By: Jorge Mcintosh DO\.br\Date and Time Co-Signed: 01/27/24 09:14 EST CBC W Auto Differential pane l (Bld)on 01-26-2024 Basophils (Bld) [#/Vol] 0.01 10*3/uL [facility] Basophils/100 WBC (Bld) 0.1 % 0.0 - 2.0 % [facility] Eosinophils (Bld) [#/Vol] 0.14 10*3/uL [facility] Eosinophils/100 WBC (Bld) 1.3 % 0.0 - 6.0 % [facility] Erythrocyte distribution width (RBC) [Ratio] 13.4 % 11.5 - 14.5 % [facility] Hematocrit (Bld) [Volume fraction] 42.1 % 36.0 - 46.0 % [facility] Hemoglobin (Bld) [Mass/Vol] 13.6 g/dL 12.0 - 16.0 g/dL [facility] Immature granulocytes (Bld) [#/Vol] 0.03 10*3/uL [facility] Immature granulocytes/100 WBC (Bld) 0.3 % 0.0 - 0.9 % [facility] Comment on above: Immature Granulocyte Count (IG) includes promyelocytes, myelocytes and metamyelocytes but does not include bands. Percent differential counts (%) should be interpreted in the context of the absolute cell counts (cells/UL). Interpretation and review of laboratory results Abnormal [facility] Lymphocytes (Bld) [#/Vol] 1.25 10*3/uL [facility] Lymphocytes/100 WBC (Bld) 11.4 % 13.0 - 44.0 % [facility] MCH (RBC) [Entitic mass] 30 pg 26.0 - 34.0 pg [facility] MCHC (RBC) [Mass/Vol] 32.3 g/dL 32.0 - 36.0 g/dL [facility] MCV (RBC) [Entitic vol] 93 fL 80 - 100 fL [facility] Monocytes (Bld) [#/Vol] 0.5 10*3/uL [facility] Monocytes/100 WBC (Bld) 4.6 % 2.0 - 10.0 % [facility] Neutrophils (Bld) [#/Vol] 9.03 10*3/uL High [facility] Comment on above: Percent differential counts (%) should be interpreted in the context of the absolute cell counts (cells/uL). Neutrophils/100 WBC (Bld) 82.3 % 40.0 - 80.0 % [facility] Nucleated RBC/100 WBC (Bld) [Ratio] 0 % [facility] Platelets (Bld) [#/Vol] 430 10*3/uL [facility] RBC (Bld) [#/Vol] 4.53 10*6/uL [facility] WBC (Bld) [#/Vol] 11 10*3/uL [facility] Basophils (Bld) [#/Vol] 0.01 x10*3/uL Normal 0.00-0.10 [facility] Comment on above: Performed By: #### 3 4529-8 #### SANTOSH BAI ([id number]) [facility] ([facility]) [address] [place] [address] Basophils/100 WBC (Bld) 0.1 % Normal 0.0-2.0 [facility] Comment on above: Performed By: #### 3 4529-8 #### SANTOSH BAI ([id number]) [facility] ([facility]) [address] [place] [address] Eosinophils (Bld) [#/Vol] 0.14 x10*3/uL Normal 0.00-0.70 [facility] Comment on above: Performed By: #### 3 4529-8 #### SANTOSH BAI ([id number]) [facility] ([facility]) [address] [place] [address] Eosinophils/100 WBC (Bld) 1.3 % Normal 0.0-6.0 [facility] Comment on above: Performed By: #### 3 4529-8 #### SANTOSH BAI ([id number]) [facility] ([facility]) [address] [place] [address] Erythrocyte distribution width (RBC) [Ratio] 13.4 % Normal 11.5-14.5 [facility] Comment on above: Performed By: #### 3 4529-8 #### SANTOSH BAI ([id number]) [facility] ([facility]) [address] [place] [address] Hematocrit (Bld) [Volume fraction] 42.1 % Normal 36.0-46.0 [facility] Comment on above: Performed By: #### 3 4529-8 #### SANTOSH BAI ([id number]) [facility] ([facility]) [address] [place] [address] Hemoglobin (Bld) [Mass/Vol] 13.6 g/dL Normal 12.0-16.0 [facility] Comment on above: Performed By: #### 3 4529-8 #### SANTOSH BAI ([id number]) [facility] ([facility]) [address] [place] [id number] Immature granulocytes (Bld) [#/Vol] 0.03 x10*3/uL Normal 0.00-0.70 [facility] Comment on above: Performed By: #### 3 4529-8 #### SANTOSH BAI ([id number]) [facility] ([facility]) [address] [place] [id number] Immature granulocytes/100 WBC (Bld) 0.3 % Normal 0.0-0.9 [facility] Comment on above: Result Comment: Aspen ture Granulocyte Count (IG) includes promyelocytes, myelocytes and metamyelocytes but does not include bands. Percent differential counts (%) should be interpreted in the context of the absolute cell counts (cells/UL). Performed By: #### 3 4529-8 #### SANTOSH BAI ([id number]) [facility] ([facility]) [address] [place] [id number] Lymphocytes (Bld) [#/Vol] 1.25 x10*3/uL Normal 1.20-4.80 [facility] Comment on above: Performed By: #### 3 4529-8 #### SANTOSH BAI ([id number]) [facility] ([facility]) [address] [place] [address] Lymphocytes/100 WBC (Bld) 11.4 % Normal 13.0-44.0 [facility] Comment on above: Performed By: #### 3 4529-8 #### SANTOSH BAI ([id number]) [facility] ([facility]) [address] [place] [id number] MCH (RBC) [Entitic mass] 30.0 pg Normal 26.0-34.0 [facility] Comment on above: Performed By: #### 3 4529-8 #### SANTOSH BAI ([id number]) [facility] ([facility]) [address] [place], [place] [id number] MCHC (RBC) [Mass/Vol] 32.3 g/dL Normal 32.0-36.0 [facility] Comment on above: Performed By: #### 3 4529-8 #### SANTOSH BAI ([id number]) [facility] ([facility]) [address] [place] [address] MCV (RBC) [Entitic vol] 93 fL Normal 80-100 [facility] Comment on above: Performed By: #### 3 4529-8 #### SANTOSH BAI ([id number]) [facility] ([facility]) [address] [place] [address] Monocytes (Bld) [#/Vol] 0.50 x10*3/uL Normal 0.10-1.00 [facility] Comment on above: Performed By: #### 3 4529-8 #### SANTOSH BAI ([id number]) [facility] ([facility]) [address] [place] [address] Monocytes/100 WBC (Bld) 4.6 % Normal 2.0-10.0 [facility] Comment on above: Performed By: #### 3 4529-8 #### SANTOSH BAI ([id number]) [facility] ([facility]) [address] [place] [id number] Neutrophils (Bld) [#/Vol] 9.03 x10*3/uL High 1.20-7.70 [facility] Comment on above: Result Comment: Perc ent differential counts (%) should be interpreted in the context of the absolute cell counts (cells/uL). Performed By: #### 3 4529-8 #### SANTOSH BAI ([id number]) [facility] ([facility]) [address] [place] [address] Neutrophils/100 WBC (Bld) 82.3 % Normal 40.0-80.0 [facility] Comment on above: Performed By: #### 3 4529-8 #### SANTOSH BAI ([id number]) [facility] ([facility]) [address] [place] [address] Nucleated RBC/100 WBC (Bld) [Ratio] 0.0 /100 WBCs Normal 0.0-0.0 [facility] Comment on above: Performed By: #### 3 4529-8 #### SANTOSH BAI ([id number]) [facility] ([facility]) [address] [place] [address] Platelets (Bld) [#/Vol] 430 x10*3/uL Normal 150-450 [facility] Comment on above: Performed By: #### 3 4529-8 #### SANTOSH BAI ([id number]) [facility] ([facility]) [address] [place] [address] RBC (Bld) [#/Vol] 4.53 x10*6/uL Normal 4.00-5.20 [facility] Comment on above: Performed By: #### 3 4529-8 #### SANTOSH BAI ([id number]) [facility] ([facility]) [address] [place] [address] WBC (Bld) [#/Vol] 11.0 x10*3/uL Normal 4.4-11.3 [facility] Comment on above: Performed By: #### 3 4529-8 #### SANTOSH BAI ([id number]) [facility] ([facility]) [address] [place] [address] Comprehensive metabolic 2000 panelon 01-26-2024 Albumin BCP dye [Mass/Vol] 4.3 g/dL 3.4 - 5.0 g/dL [facility] ALP [Catalytic activity/Vol] 93 U/L 33 - 110 U/L [facility] ALT With P-5'-P [Catalytic activity/Vol] 17 U/L 7 - 45 U/L [facility] Comment on above: Patients treated wit h Sulfasalazine may generate falsely decreased results for ALT. Anion gap [Moles/Vol] 13 mmol/L 10 - 2 0 mmol/L [facility] AST With P-5'-P [Catalytic activity/Vol] 20 U/L 9 - 39 U/L [facility] Comment on above: MILD HEMOLYSIS DETEC LISA. The result may be falsely elevated due to hemolysis or other interferents. Clinical correlation is recommended. Repeat testing may be considered. Bilirubin [Mass/Vol] 0.3 mg/dL 0.0 - 1 .2 mg/dL [facility] Calcium [Mass/Vol] 9 mg/dL 8.6 - 10. 3 mg/dL [facility] Chloride [Moles/Vol] 108 mmol/L High 98 - 10 7 mmol/L [facility] CO2 [Moles/Vol] 23 mmol/L 21 - 32 mmol/L [facility] Creatinine [Mass/Vol] 0.78 mg/dL 0.50 - 1.05 mg/dL [facility] eGFR - PINF [facility] Comment on above: Calculations of juan antonio mated GFR are performed using the 2020 CKD-EPI Study Refit equation without the race variable for the IDMS-Traceable creatinine methods. https://jasn.asnjournals.org/content//ASN.68631 34106 Glucose [Mass/Vol] 106 mg/dL High 74 - 99 mg/dL [facility] Interpretation and review of laboratory results Abnormal [facility] Potassium [Moles/Vol] 4.3 mmol/L 3.5 - 5.3 mmol/L [facility] Comment on above: MILD HEMOLYSIS DETEC LISA. The result may be falsely elevated due to hemolysis or other interferents. Clinical correlation is recommended. Repeat testing may be considered. Protein [Mass/Vol] 7.3 g/dL 6.4 - 8.2 g/dL [facility] Sodium [Moles/Vol] 140 mmol/L 136 - 145 mmol/L [facility] Urea nitrogen [Mass/Vol] 17 mg/dL 6 - 23 mg/dL [facility] Albumin BCP dye [Mass/Vol] 4.3 g/dL Normal 3.4-5.0 [facility] Comment on above: Performed By: #### 3 4529-8 #### SANTOSH BAI ([id number]) [facility] ([facility]) [address] [place] [address] ALP [Catalytic activity/Vol] 93 U/L Normal 33-110 [facility] Comment on above: Performed By: #### 3 4529-8 #### SANTOSH BAI ([id number]) [facility] ([facility]) [address] [place] [address] ALT With P-5'-P [Catalytic activity/Vol] 17 U/L Normal 7-45 [facility] Comment on above: Result Comment: Katia ents treated with Sulfasalazine may generate falsely decreased results for ALT. Performed By: #### 3 4529-8 #### SANTOSH BAI ([id number]) [facility] ([facility]) [address] [place] [address] Anion gap [Moles/Vol] 13 mmol/L Normal 10-20 [facility] Comment on above: Performed By: #### 3 4529-8 #### SANTOSH BAI ([id number]) [facility] ([facility]) [address] [place] [id number] AST With P-5'-P [Catalytic activity/Vol] 20 U/L Normal 9-39 [facility] Comment on above: Result Comment: MILD HEMOLYSIS DETECTED. The result may be falsely elevated due to hemolysis or other interferents. Clinical correlation is recommended. Repeat testing may be considered. Performed By: #### 3 4529-8 #### SANTOSH BAI ([id number]) [facility] ([facility]) [address] [place] [address] Bilirubin [Mass/Vol] 0.3 mg/dL Normal 0.0-1.2 [facility] Comment on above: Performed By: #### 3 4529-8 #### SANTOSH BAI ([id number]) [facility] ([facility]) [address] [place] [address] Calcium [Mass/Vol] 9.0 mg/dL Normal 8.6-10.3 [facility] Comment on above: Performed By: #### 3 4529-8 #### SANTOSH BAI ([id number]) [facility] ([facility]) [address] [place] [address] Chloride [Moles/Vol] 108 mmol/L High 98-107 [facility] Comment on above: Performed By: #### 3 4529-8 #### SANTOSH BAI ([id number]) [facility] ([facility]) [address] [place] [address] CO2 [Moles/Vol] 23 mmol/L Normal 21-32 [facility] Comment on above: Performed By: #### 3 4529-8 #### SANTOSH BAI ([id number]) [facility] ([facility]) [address] [place] [address] Creatinine [Mass/Vol] 0.78 mg/dL Normal 0.50-1.05 [facility] Comment on above: Performed By: #### 3 4529-8 #### SANTOSH BAI ([id number]) [facility] ([facility]) [address] [place] [address] GFR/1.73 sq M.predicted MDRD (S/P/Bld) [Vol rate/Area] mL/min/{1.73_m2} Normal >60 [facility] Comment on above: Result Comment: Calc ulations of estimated GFR are performed using the 2020 CKD-EPI Study Refit equation without the race variable for the IDMS-Traceable creatinine methods. https://jasn.asnjournals.org/content//ASN.11206 08327 Performed By: #### 3 4529-8 #### SANTOSH BAI ([id number]) [facility] ([facility]) [address] [place] [address] Glucose [Mass/Vol] 106 mg/dL High 74-99 [facility] Comment on above: Performed By: #### 3 4529-8 #### SANTOSH BAI ([id number]) [facility] ([facility]) [address] [place] [address] Potassium [Moles/Vol] 4.3 mmol/L Normal 3.5-5.3 [facility] Comment on above: Result Comment: MILD HEMOLYSIS DETECTED. The result may be falsely elevated due to hemolysis or other interferents. Clinical correlation is recommended. Repeat testing may be considered. Performed By: #### 3 4529-8 #### SANTOSH BAI ([id number]) [facility] ([facility]) [address] [place] [address] Protein [Mass/Vol] 7.3 g/dL Normal 6.4-8.2 [facility] Comment on above: Performed By: #### 3 4529-8 #### SANTOSH BAI ([id number]) [facility] ([facility]) [address] [place] [address] Sodium [Moles/Vol] 140 mmol/L Normal 136-145 [facility] Comment on above: Performed By: #### 3 4529-8 #### SANTOSH BAI ([id number]) [facility] ([facility]) [address] [place] [address] Urea nitrogen [Mass/Vol] 17 mg/dL Normal 6-23 [facility] Comment on above: Performed By: #### 3 4529-8 #### SANTOSH BAI ([id number]) [facility] ([facility]) [address] [place] [address] ED Clinical Summaryon 2023 ED Clinical Summary ED Clinical Summary [address] [address] ED Clinical Summary Person Information Name: JERAD TRACY/[facility] Age: 48 Years : 1975 Sex: Female Language: Cambodian PCP: Cheyanne Rincon Marital Status: Visit Id: Visit Reason: Back pain; SEVERE LOWER BACK PAIN Speciality: Acuity: 4 Enc Type: Emergency Med Service: Emergency Arrival: 01/25/2024 15:22:45 Discharge: 01/25/2024 16:33:36 LOS: 000 01:11 Checkin: 01/25/2024 15:22:45 Checkout: 01/25/2024 16:33:36 Dispo Type: Home (Routine DC) EVENTS: Event Name Event Status Request Date/Time Start Date/Time Complete Date/Time Arrive Complete 01/25/2024 15:22:45 01/25/2024 15:22:45 01/25/2024 15:22:45 Document Home Meds Request 01/25/2024 15:22:45 Triage Complete 01/25/2024 15:22:45 01/25/2024 15:37:04 01/25/2024 15:37:04 Registration Complete 01/25/2024 15:25:35 01/25/2024 15:25:35 01/25/2024 15:25:35 Reg Complete Request 01/25/2024 15:25:35 Reg Bed Request Complete 01/25/2024 15:25:35 01/25/2024 15:25:35 01/25/2024 15:25:35 Bed Assign Complete 01/25/2024 15:33:32 01/25/2024 15:33:32 01/25/2024 15:33:32 Dr Exam Complete 01/25/2024 15:33:32 01/25/2024 15:39:11 01/25/2024 15:39:11 RN Exam Complete 01/25/2024 15:33:32 01/25/2024 16:32:36 01/25/2024 16:32:36 Registration Request 01/25/2024 15:39:11 Dr Exam Complete 01/25/2024 15:41:26 01/25/2024 15:41:26 01/25/2024 15:41:26 Meds Admin Complete 01/25/2024 16:03:06 01/25/2024 16:22:46 Discharge Complete 01/25/2024 16:05:39 01/25/2024 16:33:50 01/25/2024 16:33:50 Transfer Complete 01/25/2024 16:33:50 01/25/2024 16:33:50 01/25/2024 16:33:50 ADDRESS: [place] [phone] PHYS DOC NOTES: MEDICAL INFORMATION: Prescriptions Given: Medications to Continue Taking That Have Changed [id number], [address] [place], [place] [id number], [phone] START: cyclobenzaprine (cyclobenzaprine 5 mg Tab) 1 Tablets By Mouth 3 times a day as needed Pain for 7 Days. Take 1 tablet as needed 3 times daily with 1 dose being at bedtime. Refills: 0. START: lidocaine topical (lidocaine Top 5% film Patch) 1 Patches Topical every day. apply 12 hours on and 12 hours off daily. Refills: 0. START: predniSONE (predniSONE 10 mg Tab) 1 Tablets By Mouth As Directed. Take 3 tabs by mouth daily x3 days, then 2 tabs daily x3 days, then 1 tab daily x3 days.. Refills: 0. Other Medications START: cyclobenzaprine (cyclobenzaprine 10 mg Tab) 1 Tablets By Mouth 3 times a day as needed for spasm. Refills: 0. START: lidocaine topical (Lidoderm 5% Patch) 1 Patches Topical every day. apply 12 hours on and 12 hours off daily. Refills: 0. START: predniSONE (predniSONE 50 mg Tab) 1 Tablets By Mouth every day for 5 Days. Refills: 0. Medications to Continue with No Changes Other Medications azithromycin (azithromycin 250 mg Tab 5-day Dose Pack (Z-Ian)) 1 Packets By Mouth As Directed for 5 Days. as directed on package labeling. Refills: 0. dicyclomine (Bentyl 10 mg Cap) 2 Capsules By Mouth 4 times a day. Refills: 0. diflunisal (diflunisal 500 mg Tab) 1 Tablets By Mouth every 12 hours. Refills: 0. fluoxetine (FLUoxetine 60 mg oral tablet) TAKE 1 TABLET BY MOUTH EVERY DAY. Refills: 1. ibuprofen (ibuprofen 800 mg Tab) 1 Tablets By Mouth 3 times a day. Refills: 0. ondansetron (Zofran 4 mg Tab) 1 Tablets By Mouth every 6 hours as needed Nausea. Take one tab by mouth every six hours as needed for nausea. Refills: 0. PATIENT EDUCATION INFORMATION: Instructions: Chronic Back Pain, [id number] Follow up: With: Address: When: Pain Clinic: [facility] [phone] In 3 days 01/28/2024 Comments: Call to schedule a follow-up appointment with your neurosurgeon and/or pain management for further management of care. Use the prednisone as prescribed. Use the Flexeril and lidocaine patches as needed for pain along with Tylenol and Motrin. Return to ED with any new or worsening symptoms. With: Address: When: Cheyanne Rosas [address] [place] [address] A, [place] [phone] Business (1) In 3 days DIAGNOSIS: Chronic bilateral low back pain with sciatica; Other chronic pain Normal [facility] ED Patient Summaryon 024 ED Patient Summary ED Patient Summary [address] [address] Patient Discharge Instructions Person Information Name: JERAD TRACY Age: 48 Years Arrival Date: 01/25/2024 15:22:45 Discharge Diagnosis: Chronic bilateral low back pain with sciatica; Other chronic pain Primary Care Physician: Cheyanne Rincon Provider Information Primary Provider: Jorge Mcintosh DO [employer] Kitchen:Zhane Castro PA-C. The exam and treatment you received in the Emergency Department were for an urgent problem and are not intended as complete care. It is important that you follow up with a doctor, nurse practitioner, or physician???s insurance administrative assistant for ongoing care. If your symptoms become worse or you do not improve as expected and you are unable to reach your usual health care provider, you should return to the Emergency Department. We are available 24 hours a day. JERAD TRACY has been given the following list of patient education materials, prescriptions and follow-up instructions: Follow-up Instructions: With: Address: When: Pain Clinic: [facility] [phone] In 3 days 01/28/2024 Comments: Call to schedule a follow-up appointment with your neurosurgeon and/or pain management for further management of care. Use the prednisone as prescribed. Use the Flexeril and lidocaine patches as needed for pain along with Tylenol and Motrin. Return to ED with any new or worsening symptoms. With: Address: When: Cheyanne Rosas [address], [address], [address] [address] Business (1) In 3 days In the event that this physician does not participate in your insurance network, please consult with your insurance company to find a nearby participating provider. Patient Education Materials: Chronic Back Pain, Zfrh-kk-Lcfp A MESSAGE TO ALL PATIENTS REGARDING OPIOIDS PRESCRIPTION OPIOIDS: WHAT YOU NEED TO KNOW Prescription opioids can be used to help relieve flhoflax-ru-mjaksi pain and are often prescribed following a [...] as well, even when taken as directed: ??? Tolerance???meaning you might need to take more of the medication for the same pain relief ??? Physical dependence???meaning you have symptoms of withdrawal when a medication is stopped ??? Increased sensitivity to pain ??? Constipation ??? Nausea, vomiting, and dry mouth ??? Sleepiness and dizziness ??? Confusion ??? Depression ??? Low levels of testosterone that can result in lower sex drive, energy, and strength ??? Itching and sweating RISKS ARE GREATER WITH: ??? History of drug misuse, substance use disorder, or overdose ??? Mental health conditions (such as depression or anxiety) ??? Sleep apnea ??? Older age (65 years and older) ??? Avoid alcohol while taking prescription opioids. Also, unless specifically advised by your health care provider, medications to avoid include: ??? Benzodiazepines (such as Xanax or Valium) ??? Muscle relaxants (such as Soma or Flexeril) ??? Hypnotics (such as Ambien or Lunesta) ??? Other prescription opioids KNOW YOUR OPTIONS Talk to your health care provider about ways to manage your pain that don???t involve prescription opioids. Some of these options may actually work better and have fewer risks and side effects. Options may include: ??? Pain relievers such as acetaminophen, ibuprofen, and naproxen ??? Some medication that are also used for depression or seizures ??? Physical therapy and exercise ??? Cognitive behavioral therapy, a psychological, goal-directed approach, in which patients learn how to modify physical, behavioral, and emotional triggers of pain and stress. IF YOU ARE PRESCRIBED OPIOIDS FOR PAIN: ??? Never take opioids in greater amounts or more often than prescribed. ??? Follow up with your primary health care provider. o Work together to create a plan on how to manage your pain. o Talk about ways to help manage your pain that don???t involve prescription opioids. o Talk about any and all concerns and side effects. ??? Help prevent misuse and abuse o Never sell or share prescription opioids. o Never use another person???s prescription opioids. ??? Store prescription opioids in a secure place and out of reach of others (this may include visitors, children, friends, and (more content not included)... Normal [facility] Lower Extremity Venous Du plex Bilateralon 01-24-2024 Lower Extremity Venous Duplex Bilateral Exam Date/Time: 01/23/2024 18:04 EDT Reason for Exam: Edema Report IMPRESSION: No evidence for DVT in the visualized veins of the bilateral legs. CLINICAL HISTORY: Bilateral lower leg swelling. TECHNIQUE: Castro scale with compression maneuvers, Color Doppler and Spectral Doppler at rest and with augmentation of the BILATERAL leg proximal deep veins as below. Irizarry scale with compression maneuvers of the peroneal and posterior tibial veins was performed. Images were obtained and stored in a permanent archive. COMPARISON: None. RESULT: RIGHT LEG: PROXIMAL DEEP VEINS: External iliac vein: Compressibility with spontaneous flow. Common Femoral Vein: Compressibility with spontaneous phasic flow and augmentation. Deep Femoral Vein: Compressibility with spontaneous phasic flow. Femoral Vein: Compressibility with spontaneous phasic flow and augmentation. Popliteal Vein: Compressibility with spontaneous phasic flow and augmentation. DEEP CALF VEINS: Posterior Tibial Vein: Normal compression Peroneal Vein: Normal compression SUPERFICIAL VEIN: Greater Saphenous Vein: Compressibility with spontaneous phasic flow. LEFT LEG: PROXIMAL DEEP VEINS: External iliac vein: Compressibility with spontaneous flow. Common Femoral Vein: Compressibility with spontaneous phasic flow and augmentation. Deep Femoral Vein: Compressibility with spontaneous phasic flow. Femoral Vein: Compressibility with spontaneous phasic flow and augmentation. Popliteal Vein: Compressibility with spontaneous phasic flow and augmentation. DEEP CALF VEINS: Posterior Tibial Vein: Normal compression Peroneal Vein: Normal compression SUPERFICIAL VEIN: Greater Saphenous Vein: Compressibility with spontaneous phasic flow. Report Ordering Provider: Zhane Castro FINAL REPORT Dictated: 01/24/2024 10:16 am Gillian Gamboa MD Signed (Electronic Signature): 01/24/2024 10:16 am Signed by: Gillian Gamboa MD Transcribed by: KIERRA Technologist: KRISTEL Normal [facility] BMPon 01-23-2024 Anion gap [Moles/Vol] 9 mmol/L Normal 6-16 [facility] Comment on above: Performed By: #### 2 [id number] #### [facility] [address] [place] [address] Calcium [Mass/Vol] 7.9 mg/dL Low 8.9-11.1 [facility] Comment on above: Performed By: #### 2 [id number] #### [facility] [address] [place] [address] Chloride [Moles/Vol] 107 mmol/L Normal 101-111 [facility] Comment on above: Performed By: #### 2 [id number] #### [facility] [address] [place] [address] CO2 [Moles/Vol] 29 mmol/L Normal 21-31 [facility] Comment on above: Performed By: #### 2 [id number] #### [facility] [address] [place] [address] Creatinine [Mass/Vol] 0.8 mg/dL Normal 0.5-1.3 [facility] Comment on above: Performed By: #### 2 [id number] #### [facility] [address] [place] [address] Glucose [Mass/Vol] 118 mg/dL Normal 55-199 [facility] Comment on above: Performed By: #### 2 [id number] #### [facility] [address] [place] [address] Potassium [Moles/Vol] 3.7 mmol/L Normal 3.5-5.3 [facility] Comment on above: Performed By: #### 2 [id number] #### [facility] [address] [place] [address] Sodium [Moles/Vol] 141 mmol/L Normal 135-145 [facility] Comment on above: Performed By: #### 2 [id number] #### [facility] [address] [place] [address] Urea nitrogen [Mass/Vol] 12 mg/dL Normal 5-21 [facility] Comment on above: Performed By: #### 2 [id number] #### [facility] [address] [place] [address] Urea nitrogen/Creatinine [Mass ratio] 15 No Units Normal 10-20 [facility] Comment on above: Performed By: #### 2 [id number] #### [facility] [address] [place] [address] BNPon 01-23-2024 Int Ctr BNP Pass Normal [facility] Comment on above: Performed By: #### 1 [id number] #### [facility] [address] [place] [address] Natriuretic peptide B (Bld) [Mass/Vol] 85 pg/mL High 5-80 [facility] Comment on above: Performed By: #### 1 [id number] #### [facility] [address] [place] [address] CBC w/ Auto Diffon 4 Basophils/100 WBC (Bld) 0.6 % Normal 0.0-2.0 [facility] Comment on above: Performed By: #### 2 [id number] #### [facility] [address] [place] [address] Basophils/Leukocytes Auto (Bld) [Pure # fraction] 0.0 E9/L Normal 0.0-0.2 [facility] Comment on above: Performed By: #### 2 [id number] #### [facility] [address] [place] [address] Eosinophils (Bld) [#/Vol] 0.4 E9/L Normal 0.0-0.5 [facility] Comment on above: Performed By: #### 2 [id number] #### [facility] [address] [place] [address] Eosinophils/100 WBC (Bld) 6.4 % Normal 0.0-8.0 [facility] Comment on above: Performed By: #### 2 [id number] #### [facility] [address] [place] [address] Erythrocyte distribution width (RBC) [Ratio] 14.0 % Normal 10.9-14.2 [facility] Comment on above: Performed By: #### 2 [id number] #### [facility] [address] [place] [address] Hematocrit (Bld) [Volume fraction] 35.4 % Normal 34.0-46.0 [facility] Comment on above: Performed By: #### 2 [id number] #### [facility] [address] [place] [address] Hemoglobin (Bld) [Mass/Vol] 12.2 g/dL Normal 12.0-16.0 [facility] Comment on above: Performed By: #### 2 [id number] #### [facility] [address] [place] [address] Lymphocytes (Bld) [#/Vol] 2.1 E9/L Normal 1.0-4.0 [facility] Comment on above: Performed By: #### 2 [id number] #### [facility] [address] [place] [address] Lymphocytes/100 WBC (Bld) 33.8 % Normal 14.0-50.0 [facility] Comment on above: Performed By: #### 2 [id number] #### [facility] [address] [place] [address] MCH (RBC) [Entitic mass] 31.2 pg Normal 27.0-34.0 [facility] Comment on above: Performed By: #### 2 [id number] #### [facility] [address] [place] [address] MCHC (RBC) [Mass/Vol] 34.3 g/dL Normal 31.4-36.0 [facility] Comment on above: Performed By: #### 2 [id number] #### [facility] [address] [place] [address] MCV (RBC) [Entitic vol] 90.9 fL Normal 80.0-100.0 [facility] Comment on above: Performed By: #### 2 [id number] #### [facility] [address] [place] [address] Monocytes (Bld) [#/Vol] 0.5 E9/L Normal 0.2-1.0 [facility] Comment on above: Performed By: #### 2 [id number] #### [facility] [address] [place] [address] Neutrophils (Bld) [#/Vol] 3.1 E9/L Normal 2.0-7.5 [facility] Comment on above: Performed By: #### 2 [id number] #### [facility] [address] [place] [address] Neutrophils/100 WBC (Bld) 50.6 % Normal 36.0-75.0 [facility] Comment on above: Performed By: #### 2 [id number] #### [facility] [address] [place] [address] Platelet 329.0 E9/L Normal 150.0-500.0 [facility] Comment on above: Performed By: #### 2 [id number] #### [facility] [address] [place] [address] Platelet mean volume (Bld) [Entitic vol] 7.9 fL Normal 6.4-10.8 [facility] Comment on above: Performed By: #### 2 [id number] #### [facility] [address] [place] [address] RBC (Bld) [#/Vol] 3.9 E12/L Low 4.3-5.9 [facility] Comment on above: Performed By: #### 2 [id number] #### [facility] [address] [place] [address] WBC corrected for nucl RBC Auto (Bld) [#/Vol] 6.2 E9/L Normal 4.0-11.0 [facility] Comment on above: Performed By: #### 2 [id number] #### [facility] [address] [place] [address] CHEMISTRYOrdered By: SYSTEM SYSTEM on 01-23-2024 Albumin [Mass/Vol] 3.8 g/dL Normal 3.3 - 5.0 gm/dL [facility] Albumin/Globulin [Mass ratio] 1.4 {ratio} Normal 1.1 - 2.2 [facility] ALP [Catalytic activity/Vol] 87 [iU]/d Normal 21 - 98 Int._Unit/L [facility] ALT No additional P-5'-P [Catalytic activity/Vol] 25 [iU]/d Normal 6 - 46 Int._Unit/L [facility] Anion gap [Moles/Vol] 9 mmol/L Normal 6 - 16 mEq/L R emisol Chem AST [Catalytic activity/Vol] 28 [iU]/d Normal 5 - 43 Int._Unit/L [facility] Bilirubin [Mass/Vol] 0.3 mg/dL Normal 0.0 - 1 .1 mg/dL [facility] Bilirubin.direct [Mass/Vol] 0.0 mg/dL Normal 0.0 - 0.4 mg/dL [facility] Bilirubin.indirect [Mass or moles/Vol] 0.3 mg/dL Normal 0.1 - 0.9 mg/dL [facility] Calcium [Mass/Vol] 7.9 mg/dL Low 8.9 - 11. 1 mg/dL [facility] Chloride [Moles/Vol] 107 mmol/L Normal 101 - 1 11 mmol/L [facility] CO2 [Moles/Vol] 29 mmol/L Normal 21 - 31 mmol/L [facility] Creatinine [Mass/Vol] 0.8 mg/dL Normal 0.5 - 1.3 mg/dL [facility] eGFR 91 mL/min/1.73 m2 Normal >=59mL/min /1 .73 m2 [facility] Globulin (S) [Mass/Vol] 2.7 g/dL Normal 1.4 - 4.0 gm/dL [facility] Glucose [Mass/Vol] 118 mg/dL Normal 55 - 199 mg/dL [facility] Lipase [Catalytic activity/Vol] 12 U/L Low 13 - 58 unit/L [facility] Potassium [Moles/Vol] 3.7 mmol/L Normal 3.5 - 5.3 mmol/L [facility] Protein [Mass/Vol] 6.5 g/dL Normal 6.0 - 7.8 gm/dL [facility] Sodium [Moles/Vol] 141 mmol/L Normal 135 - 145 mmol/L [facility] Troponin HS 3.40 pg/mL Low 10.10 - 27.10 pg/mL [facility] Comment on above: Interpretive Data: T he 95% CI (Confidence Interval) PPV (Positive Predictive Value) for myocardial infarction in females is 38 pg/mL, in males 51 pg/mL. The results should be used in conjunction with clinical conditions of myocardial infarction. (Access High Sensitivity Troponin I Instructions For Use, Katlyn Lampasas, October 2017) Urea nitrogen [Mass/Vol] 12 mg/dL Normal 5 - 21 mg/dL [facility] Urea nitrogen/Creatinine [Mass ratio] 15 mg/mg Normal 10 - 20 [facility] CHEMISTRYOrdered By: Jerad Meraz on 01-23-2024 Natriuretic peptide B (Bld) [Mass/Vol] 85 pg/mL High 5 - 80 pg/mL [facility] ED Clinical Summaryon 2023 ED Clinical Summary ED Clinical Summary [address] [address] ED Clinical Summary Person Information Name: JERAD TRACY/[facility] Age: 48 Years : 1975 Sex: Female Language: Cambodian PCP: Cheyanne Rincon Marital Status: Visit Id: Visit Reason: Abdominal pain; Edema; LIVER PAIN, RETAINING WATER Speciality: Acuity: 3 Enc Type: Emergency Med Service: Emergency Arrival: 01/23/2024 13:53:24 Discharge: 01/23/2024 18:45:36 LOS: 000 04:52 Checkin: 01/23/2024 13:53:24 Checkout: 01/23/2024 18:45:36 Dispo Type: Home (Routine DC) EVENTS: Event Name Event Status Request Date/Time Start Date/Time Complete Date/Time Arrive Complete 01/23/2024 13:53:24 01/23/2024 13:53:24 01/23/2024 13:53:24 Document Home Meds Request 01/23/2024 13:53:24 Triage Complete 01/23/2024 13:53:24 01/23/2024 14:03:34 01/23/2024 14:03:34 Pending Labs Complete 01/23/2024 14:05:03 01/23/2024 15:58:22 Lab Complete 01/23/2024 14:05:03 01/23/2024 15:03:57 Pending Labs Complete 01/23/2024 14:31:38 01/23/2024 14:31:38 01/23/2024 15:03:57 Lab Complete 01/23/2024 14:31:38 01/23/2024 14:31:38 01/23/2024 15:03:57 Pending Labs Complete 01/23/2024 14:32:53 01/23/2024 14:32:53 01/23/2024 14:32:54 Dr Exam Complete 01/23/2024 15:04:00 01/23/2024 15:04:00 01/23/2024 15:04:00 Registration Complete 01/23/2024 15:04:00 01/23/2024 15:12:34 01/23/2024 15:12:34 Reg Complete Request 01/23/2024 15:12:34 Reg Bed Request Complete 01/23/2024 15:12:34 01/23/2024 15:12:34 01/23/2024 15:12:34 Dr Exam Complete 01/23/2024 15:14:24 01/23/2024 15:14:24 01/23/2024 15:14:24 Registration Start 01/23/2024 15:14:24 01/23/2024 15:30:39 Bed Assign Complete 01/23/2024 15:30:39 01/23/2024 15:30:39 01/23/2024 15:30:39 RN Exam Complete 01/23/2024 15:30:39 01/23/2024 15:44:34 01/23/2024 15:44:34 X-Ray Complete 01/23/2024 15:52:31 01/23/2024 15:55:56 01/23/2024 16:03:32 US Complete 01/23/2024 15:52:31 01/23/2024 17:21:46 01/23/2024 18:04:31 Pending Labs Cancel 01/23/2024 15:52:31 01/23/2024 15:52:53 Lab Cancel 01/23/2024 15:52:31 01/23/2024 15:52:53 EKG Complete 01/23/2024 15:52:31 01/23/2024 16:43:50 Pending Labs Complete 01/23/2024 15:53:17 01/23/2024 15:53:17 01/23/2024 16:13:41 Lab Complete 01/23/2024 15:53:17 01/23/2024 15:53:17 01/23/2024 16:13:41 Pending Labs Complete 01/23/2024 15:53:39 01/23/2024 15:53:39 01/23/2024 17:09:49 Lab Complete 01/23/2024 15:53:39 01/23/2024 15:53:39 01/23/2024 17:09:49 Wet Read Request 01/23/2024 16:03:32 Meds Admin Complete 01/23/2024 16:12:44 01/23/2024 16:23:47 Meds Admin Complete 01/23/2024 18:19:38 01/23/2024 18:35:55 Meds Admin Complete 01/23/2024 18:32:20 01/23/2024 18:35:55 Discharge Complete 01/23/2024 18:34:23 01/23/2024 18:45:44 01/23/2024 18:45:44 Transfer Complete 01/23/2024 18:45:44 01/23/2024 18:45:44 01/23/2024 18:45:44 ADDRESS: [address] [facility] [id number] PHYS DOC NOTES: MEDICAL INFORMATION: Prescriptions Given: New Medications [id number], [address] [place] [id number], [phone] azithromycin (azithromycin 250 mg Tab 5-day Dose Pack (Z-Ian)) 1 Packets By Mouth As Directed for 5 Days. as directed on package labeling. Refills: 0. predniSONE (predniSONE 50 mg Tab) 1 Tablets By Mouth every day for 5 Days. Refills: 0. Medications to Continue with No Changes Other Medications cyclobenzaprine (cyclobenzaprine 10 mg Tab) 1 Tablets By Mouth 3 times a day as needed for spasm. Refills: 0. dicyclomine (Bentyl 10 mg Cap) 2 Capsules By Mouth 4 times a day. Refills: 0. diflunisal (diflunisal 500 mg Tab) 1 Tablets By Mouth every 12 hours. Refills: 0. fluoxetine (FLUoxetine 60 mg oral tablet) TAKE 1 TABLET BY MOUTH EVERY DAY. Refills: 1. ibuprofen (ibuprofen 800 mg Tab) 1 Tablets By Mouth 3 times a day. Refills: 0. lidocaine topical (Lidoderm 5% Patch) 1 Patches Topical every day. apply 12 hours on and 12 hours off daily. Refills: 0. ondansetron (Zofran 4 mg Tab) 1 Tablets By Mouth every 6 hours as needed Nausea. Take one tab by mouth every six hours as needed for nausea. Refills: 0. PATIENT EDUCATION INFORMATION: Instructions: Abdominal Pain, Adult, Gmto-gn-Rzsc Follow up: With: Address: When: Cheyanne Post, [address], [address] [address] Business (1) In 3 days 01/26/2024 Comments: Call to schedule a follow-up appoint with your family physician in the next 2 to 3 days. Continue to elevate your feet and wear compression stockings. Return to ED with any new or worsening symptoms. DIAGNOSIS: Abdominal pain, RUQ; Bilateral leg edema; COPD exacerbation Normal [facility] ED Note-Physicianon 01-23-20 ED Note-Physician ED Note-Physician Basic Information Time Seen: Matthew MILES, Zhane Enriquez 01/23/2024 15:04 Chief Complaint Pt presents to ED with complaints of RUQ pain and fluid retention. Hx of liver fibrosis. History of Present Illness Patient is a 62-cwko-zog-year-old family with a history of bipolar disorder, chronic hepatitis C, liver disease, and smoking who presents to the ED with right upper quadrant abdominal pain that began this morning. Patient describes it as a constant pain. She denies changes in urination or bowel movements. Patient states she also noted swelling to her lower extremities bilaterally yesterday and has been elevating them. She is not on a diuretic. Patient notes a history of blood clots but is not on anticoagulants. She denies nausea/vomiting. Patient states she has also been having a dry cough for the past 4 days as well. She denies any fevers, chest pain, or shortness of breath. Review of Systems A 10 point review of systems is negative except as noted above. Medical and Surgical History: Reviewed and noted Social history: Lives at home Family History: Reviewed. Physical Exam Vitals & Measurements T: 36.5 ???C(Oral) HR: 88(Peripheral) RR: 18 BP: 151/82 SpO2: 98% HT: 160 cm WT: 114.8 kg BMI: 44.84 General: The patient appears well and in no apparent distress. Patient is resting comfortably on cart. Skin: Warm, dry, no pallor noted. Head: Normocephalic, atraumatic Neck: No JVD Eye: PERRLA, EOMI ENT: Moist mucus membranes Cardiovascular: Regular rate normal peripheral perfusion Respiratory: No respiratory distress no accessory muscle use no obvious audible wheezing Chest Wall: no deformity Musculoskeletal: normal ROM, no deformity, mild bilateral lower extremity swelling, no erythema or increased warmth, neurovascularly intact GI: Soft no obvious distention. No rebound or rigidity. No guarding. No tenderness. Neurological: A&O moves all extremities equal strength and symmetry Psychiatric: Cooperative and appropriate Medical Decision Making Patient is a 2-smfw[age]wkk-year-old family with a history of bipolar disorder, chronic hepatitis C, liver disease, and smoking who presents to the ED with right upper quadrant abdominal pain that began this morning. Abdominal exam is unremarkable without tenderness to palpation. Patient has presented numerous times with right upper quadrant pain in which she has received many CT abdomen/pelvis which showed no acute abnormalities. Patient has a history of DVT and is not on anticoagulants, therefore bilateral ultrasounds of the lower extremities were obtained, which are negative for DVT. EKG is without ischemic changes. Lab work is reviewed and baseline aside from a calcium of 7.9. BNP is 89. Patient is given 500 mg of calcium carbonate. Chest x-ray shows no acute cardiopulmonary abnormalities. Patient was updated on the results. She was educated on feet elevation and compression socks. Patient is being prescribed prednisone and azithromycin for COPD exacerbation. She will follow-up with her family physician in the next 2 to 3 days for further management of care. She was advised to return to ED with any new or worsening symptoms. Patient is agreeable with the plan and all questions were answered. Assessment/Plan Abdominal pain, RUQ (R10.11: Right upper quadrant pain) Bilateral leg edema (R60.0: Localized edema) COPD exacerbation (J44.1: Chronic obstructive pulmonary disease with (acute) exacerbation) Orders: acetaminophen-oxycodone , 1 tab(s), Tab, Oral, Once, Stop date 01/23/24 18:32:00 EDT, STAT, Start date 01/23/24 18:32:00 EDT azithromycin, = 1 packet(s), Oral, As Directed, as directed on package labeling, X 5 day(s), # 6 tab(s), Refills(s) 0, Pharmacy: [id number], 160, cm, 01/23/24 14:03:00 EDT, Height/Length Dosing, 114.8, kg, 01/23/24 14:03:00 EDT, Weight Dosing calcium carbonate, 500 mg = 1 tab(s), Tab-Chew, Oral, Once, Stop date 01/23/24 18:18:00 EDT, STAT, Start date 01/23/24 18:18:00 EDT, 01/23/24 18:18:00 EDT morphine, 4 mg = 1 mL, Injection, IntraMuscular, Once, Stop date 01/23/24 16:12:00 EDT, STAT, Start date 01/23/24 16:12:00 EDT, 01/23/24 16:12:00 EDT predniSONE, 50 mg = 1 tab(s), Oral, Daily, X 5 day(s), # 5 tab(s), Refills(s) 0, Pharmacy: [facility]/pharmacy #[id number], 160, cm, 01/23/24 14:03:00 EDT, Height/Length Dosing, 114.8, kg, 01/23/24 14:03:00 EDT, Weight Dosing ECG 12 Lead Adult US Lower Extremity Venous Duplex Bilateral XR Chest Single View Medications Administered Given acetaminophen-oxycodone 325 mg-5 mg Tab, 1 tab(s), Oral calcium carbonate 500 mg Chew Tab, 500 mg, Oral morphine 4 mg/mL Inj, 4 mg, IntraMuscular Disposition Plan Patient Discharge Condition stable Discharge Disposition home Discharge Prescription List Prescriptions azithromycin 250 mg Tab 5-day Dose Pack (Z-Ian), 1 packet(s), Oral, As Directed predniSONE 50 mg Tab, 50 mg= 1 tab(s), Oral, Daily Follow-up With When Contact Information Cheyanne Rosas In 3 da (more content not included)... Normal [facility] Comment on above: Result Comment: Elec tronically Signed By: Zhane Castro PA-C\.br\Date and Time Signed: 01/23/24 18:37 EDT\.br\Electronically Co-Signed By: Balbina Bryant M.D.\.br\Date and Time Co-Signed: 01/23/24 19:50 EDT ED Note-Physician ED Note-Physician Basic Information Time Seen: Zhane Castro PA-C 01/23/2024 15:04 Chief Complaint Pt presents to ED with complaints of RUQ pain and fluid retention. Hx of liver fibrosis. Physical Exam Vitals & Measurements T: 36.5 ???C(Oral) HR: 88(Peripheral) RR: 18 BP: 151/82 SpO2: 98% HT: 160 cm WT: 114.8 kg BMI: 44.84 General: The patient appears well and in no apparent distress. Patient is resting comfortably on cart. Skin: Warm, dry, no pallor noted. Head: Normocephalic, atraumatic Neck: No JVD Eye: PERRLA, EOMI ENT: Moist mucus membranes Cardiovascular: Regular rate normal peripheral perfusion Respiratory: No respiratory distress no accessory muscle use no obvious audible wheezing Chest Wall: no deformity Musculoskeletal: normal ROM, no deformity, bilateral nonpitting lower extremity edema, no erythema or increased warmth, neurovascularly intact GI: Soft no obvious distention. No rebound or rigidity. No guarding. No tenderness. Neurological: A&O moves all extremities equal strength and symmetry Psychiatric: Cooperative and appropriate Medical Decision Making Patient has a history of DVT and is not on anticoagulants, therefore bilateral ultrasounds of the lower extremities were obtained. Assessment/Plan Ordered: B-Type Natriuretic Peptide ECG 12 Lead Adult Troponin US Lower Extremity Venous Duplex Bilateral XR Chest Single View Disposition Plan Discharge Prescription List Prescriptions No active prescription medications Follow-up No qualifying data available Attestation Patient seen and evaluated by the physician insurance administrative assistant. Attending physician was present in the emergency department and supervised care. This visit was performed by both the physician and an APC. I performed all aspects of the MDM as documented. This report was transcribed using voice recognition software. Every effort was made to ensure accuracy, however, inadvertently computerized cutter machine mistakes may be present. Appropriate healthcare PPE was used in evaluating this patient. The patient was placed in a mask. The healthcare provider was wearing mask, gloves, and utilizing proper hand hygiene. All equipment was properly cleansed. I performed a substantive part of the MDM during the patient???s E/M visit. I personally made or approved the documented management plan and acknowledge its risk of complications. (Independent Interpretation) My (EKG/X-Ray/US/CT as applicable) interpretation as above. (Discussion) Management/test interpretation discussed with APC. Problem List/Past Medical History Ongoing Arthritis of [...] x 7, Tonillectomy with adenoids. Medications Inpatient No active inpatient medications Home Bentyl 10 mg Cap, 20 mg= 2 cap(s), Oral, QID cyclobenzaprine 10 mg Tab, 10 mg= 1 tab(s), Oral, TID, PRN diflunisal 500 mg Tab, 500 mg= 1 tab(s), Oral, q12hr FLUoxetine 60 mg oral tablet, See Instructions ibuprofen 800 mg Tab, 800 mg= 1 tab(s), Oral, TID Lidoderm 5% Patch, 1 patch(es), Topical, Daily Zofran 4 mg Tab, 4 mg= 1 tab(s), Oral, q6hr, PRN Allergies Tylenol (Unknown) Vicodin (Hives) nabumetone (Rash) penicillin (Hives) Social History Alcohol - Denies Alcohol Use, 07/10/2012 Substance Abuse - Denies Substance Abuse, 07/10/2012 Past, Cocaine, 07/17/2023 Tobacco - High Risk, 12/07/2022 10 or more cigarettes (1/2 pack or more)/day in last 30 days Tobacco Use:. Never Smokeless Tobacco Use:. Cigarettes, Ready to change: Yes. Household tobacco concerns: Yes. Yes, 09/17/2023 Family History Acute myocardial infarction: Father. Alcoholism: Father. Anxiety: Mother. Cancer: Father and Grandparent. Depression: Mother. Diabetes mellitus: Grandparent. Drug addiction: Sister. Hypertension: Mother. Lab Results WBC: 6.2 E9/L (01/23/24 14:26:00) RBC: 3.9 E12/L Low (01/23/24 14:26:00) HGB: 12.2 gm/dL (01/23/24 14:26:00) Hct: 35.4 % (01/23/24 14:26:00) MCV: 90.9 fL (01/23/24 14:26:00) MCH: 31.2 pg (01/23/24 14:26:00) MCHC: 34.3 gm/dL (01/23/24 14:26:00) RDW: 14 % (01/23/24 14:26:00) Platelet: 329 E9/L (01/23/24 14:26:00) MPV: 7.9 fL (01/23/24 14:26:00) Neutro Auto: 50.6 % (01/23/24 14:26:00) Lymph Auto: 33.8 % (01/23/24 14:26:00) [place] Auto: 8.6 % (01/23/24 14:26:00) Eos Auto: 6.4 % (01/23/24 14:26:00) Basophil Auto: 0.6 % (more content not included)... Normal [facility] Comment on above: Other Comment: Accid ental duplicate ED Patient Summaryon 024 ED Patient Summary ED Patient Summary [address] [address] Patient Discharge Instructions Person Information Name: JERAD TRACY Age: 48 Years Arrival Date: 01/23/2024 13:53:24 Discharge Diagnosis: Abdominal pain, RUQ; Bilateral leg edema; COPD exacerbation Primary Care Physician: Cheyanne Rincon Provider Information Primary Provider: Balbina Bryant M.D. [employer] Kitchen:Zhane Castro PA-C. The exam and treatment you received in the Emergency Department were for an urgent problem and are not intended as complete care. It is important that you follow up with a doctor, nurse practitioner, or physician???s insurance administrative assistant for ongoing care. If your symptoms [...] Follow-up Instructions: With: Address: When: Cheyanne Rosas [facility] [place], [address] [address] Business (1) In 3 days 01/26/2024 Comments: Call to schedule a follow-up appoint with your family physician in the next 2 to 3 days. Continue to elevate your feet and wear compression stockings. Return to ED with any new or worsening symptoms. In the event that this physician does not participate in your insurance network, please consult with your insurance company to find a nearby participating provider. Patient Education Materials: Abdominal Pain, Adult, Gnqm-kn-Eqpy A MESSAGE TO ALL PATIENTS REGARDING OPIOIDS PRESCRIPTION OPIOIDS: WHAT YOU NEED TO KNOW Prescription opioids can be used to help relieve xebqbmah-gr-izpzto pain and are often prescribed following a [...] as well, even when taken as directed: ??? Tolerance???meaning you might need to take more of the medication for the same pain relief ??? Physical dependence???meaning you have symptoms of withdrawal when a medication is stopped ??? Increased sensitivity to pain ??? Constipation ??? Nausea, vomiting, and dry mouth ??? Sleepiness and dizziness ??? Confusion ??? Depression ??? Low levels of testosterone that can result in lower sex drive, energy, and strength ??? Itching and sweating RISKS ARE GREATER WITH: ??? History of drug misuse, substance use disorder, or overdose ??? Mental health conditions (such as depression or anxiety) ??? Sleep apnea ??? Older age (65 years and older) ??? Avoid alcohol while taking prescription opioids. Also, unless specifically advised by your health care provider, medications to avoid include: ??? Benzodiazepines (such as Xanax or Valium) ??? Muscle relaxants (such as Soma or Flexeril) ??? Hypnotics (such as Ambien or Lunesta) ??? Other prescription opioids KNOW YOUR OPTIONS Talk to your health care provider about ways to manage your pain that don???t involve prescription opioids. Some of these options may actually work better and have fewer risks and side effects. Options may include: ??? Pain relievers such as acetaminophen, ibuprofen, and naproxen ??? Some medication that are also used for depression or seizures ??? Physical therapy and exercise ??? Cognitive behavioral therapy, a psychological, goal-directed approach, in which patients learn how to modify physical, behavioral, and emotional triggers of pain and stress. IF YOU ARE PRESCRIBED OPIOIDS FOR PAIN: ??? Never take opioids in greater amounts or more often than prescribed. ??? Follow up with your primary health care provider. o Work together to create a plan on how to manage your pain. o Talk about ways to help manage your pain that don???t involve prescription opioids. o Talk about any and all concerns and side effects. ??? Help prevent misuse and abuse o Never sell or share prescription opioids. o Never use another person???s prescription opioids. ??? Store prescription opioids in a secure place and out of reach of others (this may include visitors, children, friends, and family). ??? Safely dispose of unused prescription opioids: Find your community drug take-back program or your pharmacy mail-back program, or flush them down (more content not included)... Normal [facility] Extra Blueon 01-23-2024 Tube Collected Plasma Yes Invalid Interpretation Code [facility] Comment on above: Performed By: #### 1 [id number] #### [facility] [address] [place] [address] HEMATOLOGYOrdered By: SYSTEM SYSTEM on 01-23-2024 Basophils/100 WBC (Bld) 0.6 % Normal 0.0 - 2.0 % Remisol Heme Basophils/Leukocytes Auto (Bld) [Pure # fraction] 0.0 E9/L Normal 0.0 - 0.2 E9/L Remisol Heme Eosinophils (Bld) [#/Vol] 0.4 E9/L Normal 0.0 - 0.5 E9/L Remisol Heme Eosinophils/100 WBC (Bld) 6.4 % Normal 0.0 - 8.0 % Remisol Heme Erythrocyte distribution width (RBC) [Ratio] 14.0 % Normal 10.9 - 14.2 % Remisol Heme Hematocrit (Bld) [Volume fraction] 35.4 % Normal 34.0 - 46.0 % Remisol Heme Hemoglobin (Bld) [Mass/Vol] 12.2 g/dL Normal 12.0 - 16.0 gm/dL Remisol Heme Lymphocytes (Bld) [#/Vol] 2.1 E9/L Normal 1.0 - 4.0 E9/L Remisol Heme Lymphocytes/100 WBC (Bld) 33.8 % Normal 14.0 - 50.0 % Remisol Heme MCH (RBC) [Entitic mass] 31.2 pg Normal 27.0 - 34.0 pg Remisol Heme MCHC (RBC) [Mass/Vol] 34.3 g/dL Normal 31.4 - 36.0 gm/dL Remisol Heme MCV (RBC) [Entitic vol] 90.9 fL Normal 80.0 - 100.0 fL Remisol Heme Monocytes (Bld) [#/Vol] 0.5 E9/L Normal 0.2 - 1.0 E9/L Remisol Heme Monocytes/100 WBC (Bld) 8.6 % Normal 4.0 - 14.0 % Remisol Heme Neutrophils (Bld) [#/Vol] 3.1 E9/L Normal 2.0 - 7.5 E9/L Remisol Heme Neutrophils/100 WBC (Bld) 50.6 % Normal 36.0 - 75.0 % Remisol Heme Platelet 329.0 E9/L Normal 150.0 - 500.0 E9/L Remisol Heme Platelet mean volume (Bld) [Entitic vol] 7.9 fL Normal 6.4 - 10.8 fL Remisol Heme RBC (Bld) [#/Vol] 3.9 E12/L Low 4.3 - 5.9 E12/L Remisol Heme WBC corrected for nucl RBC Auto (Bld) [#/Vol] 6.2 E9/L Normal 4.0 - 11.0 E9/L Remisol Heme Hep Func Panelon 01-23-2024 Albumin [Mass/Vol] 3.8 g/dL Normal 3.3-5.0 [facility] Comment on above: Performed By: #### 2 [id number] #### [facility] [address] [place] [address] Albumin/Globulin (S) [Mass conc ratio] 1.4 Normal 1.1-2.2 [facility] Comment on above: Performed By: #### 2 [id number] #### [facility] [address] [place] [address] ALP [Catalytic activity/Vol] 87 Int._Unit/L Normal 21-98 [facility] Comment on above: Performed By: #### 2 [id number] #### [facility] [address] [place] [address] ALT No additional P-5'-P [Catalytic activity/Vol] 25 Int._Unit/L Normal 6-46 [facility] Comment on above: Performed By: #### 2 [id number] #### [facility] [address] [place] [address] AST [Catalytic activity/Vol] 28 Int._Unit/L Normal 5-43 [facility] Comment on above: Performed By: #### 2 [id number] #### [facility] [address] [place] [address] Bilirubin [Mass/Vol] 0.3 mg/dL Normal 0.0-1.1 [facility] Comment on above: Performed By: #### 2 [id number] #### [facility] [address] [place] [address] Bilirubin.direct [Mass/Vol] 0.0 mg/dL Normal 0.0-0.4 [facility] Comment on above: Performed By: #### 2 [id number] #### [facility] [address] [place] [address] Bilirubin.indirect [Mass or moles/Vol] 0.3 mg/dL Normal 0.1-0.9 [facility] Comment on above: Performed By: #### 2 [id number] #### [facility] [address] [place] [address] Globulin (S) [Mass/Vol] 2.7 g/dL Normal 1.4-4.0 [facility] Comment on above: Performed By: #### 2 [id number] #### [facility] [address] [place] [address] Protein [Mass/Vol] 6.5 g/dL Normal 6.0-7.8 [facility] Comment on above: Performed By: #### 2 [id number] #### [facility] [address] [place] [address] Lipase Levelon 01-23-2024 Lipase [Catalytic activity/Vol] 12 U/L Low 13-58 [facility] Comment on above: Performed By: #### 2 [id number] #### [facility] [address] [place] [address] Troponinon 01-23-2024 Troponin HS 3.40 pg/mL Low 10.10-27.10 [facility] Comment on above: Result Comment: The 95% CI (Confidence Interval) PPV (Positive Predictive Value) for myocardial infarction in females is 38 pg/mL, in males 51 pg/mL. The results should be used in conjunction with clinical conditions of myocardial infarction. (Access High Sensitivity Troponin I Instructions For Use, [employer], October 2017) Performed By: #### 2 [id number] #### [facility] [address] [place] [address] UA with Cult Rflxon 01-23-20 24 Bilirubin Ql (U) 1+ mg/dL Abnormal Negative [facility] Comment on above: Performed By: #### 4 [id number] #### [facility] [address] [place] [address] Clarity (U) Clear Normal Clear [facility] Comment on above: Performed By: #### 4 [id number] #### [facility] [address] [place] [address] Color (U) Yellow Normal Yellow [facility] Comment on above: Result Comment: Micr oscopic readings are only performed on those samples that meet specific criteria set forth by [facility]. Performed By: #### 4 [id number] #### [facility] [address] [place] [address] Epithelial cells.squamous Auto (Urine sed) [#/Area] 5-8 Invalid Interpretation Code [facility] Comment on above: Performed By: #### 4 [id number] #### [facility] [address] [place] [address] Glucose Ql (U) Negative Normal Negative [facility] Comment on above: Performed By: #### 4 [id number] #### [facility] [address] [place] [address] Hemoglobin Auto test strip (U) [Mass/Vol] Negative Normal Negative [facility] Comment on above: Performed By: #### 4 [id number] #### [facility] [address] [place] [address] Ketones Auto test strip Ql (U) 1+ mg/dL Abnormal Negative [facility] Comment on above: Performed By: #### 4 [id number] #### [facility] [address] [place] [address] Leukocyte esterase Auto test strip Ql (U) Negative Normal Negative [facility] Comment on above: Performed By: #### 4 [id number] #### [facility] [address] [place] [address] Mucus Auto Ql (U) 3+ [id number] Abnormal Negative [facility] Comment on above: Performed By: #### 4 [id number] #### [facility] [address] [place] [address] Nitrite Auto test strip Ql (U) Negative Normal Negative [facility] Comment on above: Performed By: #### 4 [id number] #### [facility] [address] [place] [address] pH (U) 6.0 [pH] Invalid Interpretation Code 5.0-9.0 [facility] Comment on above: Performed By: #### 4 [id number] #### [facility] [address] [place] [address] Protein Ql (U) 1+ mg/dL Abnormal Negative [facility] Comment on above: Performed By: #### 4 [id number] #### [facility] [address] [place] [address] RBC Ql (U) 0-3 Normal 0-3 [facility] Comment on above: Performed By: #### 4 [id number] #### [facility] [address] [place] [address] Specific gravity (U) [Rel density] 1.049 Invalid Interpretation Code 1.005-1.030 [facility] Comment on above: Performed By: #### 4 [id number] #### [facility] [address] [place] [address] Urobilinogen (U) [Mass/Vol] 4 mg/dL Abnormal Negative [facility] Comment on above: Performed By: #### 4 [id number] #### [facility] [address] [place] [address] WBC Auto (Urine sed) [#/Area] 0-5 Normal 0-5 [facility] Comment on above: Performed By: #### 4 [id number] #### [facility] [address] [place] [address] Type of Urine collection method Clean Catch Normal [facility] Comment on above: Performed By: #### 4 [id number] #### [facility] [address] [place] [address] URINALYSISOrdered By: SYSTEM SYSTEM on 01-23-2024 Bilirubin Ql (U) 1+ mg/dL Invalid Interpretation Code Negativemg/d L [facility] UA Auto SS Clarity (U) Clear (01/23/24 3:45 PM) Normal Clear [facility] [place]A Auto SS Color (U) Yellow 1 (01/23/24 3:45 PM) Normal Yellow [facility] UA Auto SS Comment on above: Interpretive Data: M icroscopic readings are only performed on those samples that meet specific criteria set forth by [facility]. Epithelial cells.squamous Auto (Urine sed) [#/Area] 5-8 graded/HPF Invalid Interpretation Code [facility] UA Auto SS Glucose Ql (U) Negative Normal Negativemg/d L [facility] UA Auto SS Hemoglobin Auto test strip (U) [Mass/Vol] Negative Normal Negativemg/d L [facility] UA Auto SS Ketones Auto test strip Ql (U) 1+ mg/dL Invalid Interpretation Code Negativemg/d L [facility] UA Auto SS Leukocyte esterase Auto test strip Ql (U) Negative Normal NegativeLeu/ uL [facility] UA Auto SS Mucus Auto Ql (U) 3+ graded/LPF Invalid Interpretation Code Negativegrad ed/LPF [facility] UA Auto SS Nitrite Auto test strip Ql (U) Negative Normal Negativemg/d L [facility] UA Auto SS pH (U) 6.0 *NA* (01/23/24 3:45 PM) Invalid Interpretation Code 5.0 - 9.0 [facility] UA Auto SS Protein Ql (U) 1+ mg/dL Invalid Interpretation Code Negativemg/d L [facility] UA Auto SS RBC Ql (U) 0-3 graded/HPF Normal 0-3graded/HP F [facility] UA Auto SS Specific gravity (U) [Rel density] 1.049 *NA* (01/23/24 3:45 PM) Invalid Interpretation Code 1.005 - 1.030 [facility] UA Auto SS Urobilinogen (U) [Mass/Vol] 4 mg/dL Invalid Interpretation Code Negativemg/d L [facility] UA Auto SS WBC Auto (Urine sed) [#/Area] 0-5 graded/HPF Normal 0-5graded/HP F [facility] UA Auto SS URINALYSISOrdered By: Laurita Salazar on 01-23-2024 UA Spec Desc Clean Catch (01/23/24 3:45 PM) Normal [facility] [place]A Auto SS XR Chest Single Viewon 01-22 XR Chest Single View Exam Date/Time: 01/23/2024 16:03 EDT Reason for Exam: Cough Report IMPRESSION: NO RADIOGRAPHIC EVIDENCE OF ACUTE INTRATHORACIC PROCESS. EXAM: XR Chest Single View History: Cough Technique: Portable AP view of the chest. Comparison: 07/20/2023 Findings: The cardiomediastinal silhouette is within normal limits. No pneumothorax, pleural effusion, or consolidation. No acute osseous abnormality. Ordering Provider: Zhane Castro FINAL REPORT Dictated: 01/23/2024 4:07 pm Francisco J Mccoy DO Signed (Electronic Signature): 01/23/2024 4:07 pm Signed by: Francisco J Mccoy DO Transcribed by: KIERRA Technologist: LAURA Technical Comments Radiation Dose: Ka,r in mGy = na DAP = na Normal [facility] eGFRon 01-23-2024 eGFR 91 mL/min/1.73 m2 Normal >=59 [facility] Comment on above: Performed By: #### 1 [id number] #### [facility] [address] [place] [address] ED Clinical Summaryon 2023 ED Clinical Summary ED Clinical Summary [address] [address] ED Clinical Summary Person Information Name: JERAD TRACY [place] Age: 48 Years : 1975 Sex: Female Language: Cambodian PCP: Cheyanne Rincon Marital Status: Visit Id: Visit Reason: Back pain; BACK PAIN/SLIPPED DISC Speciality: Acuity: 4 Enc Type: Emergency Med Service: Emergency Arrival: 01/14/2024 19:13:43 Discharge: 01/14/2024 21:20:08 LOS: 000 02:07 Checkin: 01/14/2024 19:13:43 Checkout: 01/14/2024 21:20:08 Dispo Type: Eloped EVENTS: Event Name Event Status Request Date/Time Start Date/Time Complete Date/Time Arrive Complete 01/14/2024 19:13:43 01/14/2024 19:13:43 01/14/2024 19:13:43 Document Home Meds Request 01/14/2024 19:13:43 Triage Complete 01/14/2024 19:13:43 01/14/2024 19:22:47 01/14/2024 19:22:47 Registration Complete 01/14/2024 19:17:44 01/14/2024 19:17:44 01/14/2024 19:17:44 Reg Complete Request 01/14/2024 19:17:44 Reg Bed Request Complete 01/14/2024 19:17:44 01/14/2024 19:17:44 01/14/2024 19:17:44 Bed Assign Complete 01/14/2024 20:45:07 01/14/2024 20:45:07 01/14/2024 20:45:07 Dr Exam Complete 01/14/2024 20:45:07 01/14/2024 20:50:47 01/14/2024 20:50:47 RN Exam Complete 01/14/2024 20:45:07 01/14/2024 20:55:26 01/14/2024 20:55:26 Registration Complete 01/14/2024 20:50:47 01/14/2024 20:51:02 01/14/2024 20:51:02 Dr Exam Complete 01/14/2024 20:51:13 01/14/2024 20:51:13 01/14/2024 20:51:13 Registration Complete 01/14/2024 20:51:13 01/14/2024 20:54:07 01/14/2024 20:54:07 Meds Admin Complete 01/14/2024 20:52:59 01/14/2024 21:02:17 Discharge Complete 01/14/2024 20:53:23 01/14/2024 21:20:44 01/14/2024 21:20:44 Transfer Complete 01/14/2024 21:20:44 01/14/2024 21:20:44 01/14/2024 21:20:44 ADDRESS: [address] [facility] [phone] [facility] DOC NOTES: MEDICAL INFORMATION: Prescriptions Given: Medications to Continue with No Changes Other Medications cyclobenzaprine (cyclobenzaprine 10 mg Tab) 1 Tablets By Mouth 3 times a day as needed for spasm. Refills: 0. dicyclomine (Bentyl 10 mg Cap) 2 Capsules By Mouth 4 times a day. Refills: 0. diflunisal (diflunisal 500 mg Tab) [...] and 12 hours off daily. Refills: 0. ondansetron (Zofran 4 mg Tab) 1 Tablets By Mouth every 6 hours as needed Nausea. Take one tab by mouth every six hours as needed for nausea. Refills: 0. PATIENT EDUCATION INFORMATION: Instructions: Chronic Back Pain Follow up: With: Address: When: Cheyanne Rosas [facility], [address], [address] [address] Business (1) In 3 days 01/17/2024 Comments: Call the office of your primary care doctor [...] you develop any new or worsening symptoms. Seek immediate medical attention if you develop: increasing pain, numbness, tingling, weakness, loss of motion in your arms or legs, loss of control of your urine or stool, fever, abdominal pain, chest pain, shortness of breath, or any new or worsening symptoms. DIAGNOSIS: Chronic back pain; Other chronic pain Normal [facility] ED Note-Physicianon 01-14-20 ED Note-Physician ED Note-Physician Basic Information Time Seen: Nikhil Tubbs DO 01/14/2024 20:51 Chief Complaint Pt states back pain. Disc slipped . Surgery in 1 month, but can't take pain. History of Present Illness 48-year-old female to the emergency department with chief complaint of back pain. Patient reports that she has a slipped disc in her back. She reports she has an upcoming surgery in 1 month. She reports pain was worse tonight and could not be controlled with her Percocet at home. She denies any bowel bladder incontinence or retention. She denies any fever, sweats, chills. She denies any saddle anesthesia. She denies any new numbness, weakness, tingling. She is otherwise at her baseline health. She is requesting pain medication to help her. Review of Systems A 10 point review of systems is negative except as noted above. Medical and Surgical History: Reviewed and noted Social history: Lives at home Tobacco: Denies Physical Exam Vitals & Measurements T: 36.7 ???C(Oral) HR: 113(Peripheral) RR: 20 BP: 136/88 SpO2: 97% HT: 160 cm WT: 114.8 kg BMI: 44.84 VITALS: I have reviewed the triage vital signs. GENERAL: Well developed, well appearing adult in no acute distress. NEURO: Alert and oriented. Moves all extremities. Face is symmetric and expressive. Patellar reflexes brisk and equal bilaterally. Normal gait. Plantar flexion/dorsiflexion, knee flexion/extension, hip flexion/extension are grossly intact with 5/5 strength. Sensation is intact across the bilateral lower extremities. SPINE: No midline cervical, thoracic, or lumbar tenderness. No step-off or deformities. No paraspinal muscle tenderness or increased tone. EYES: PERRL. No scleral icterus or conjunctival injection. No discharge. HENT: Normocephalic, atraumatic. Hearing is grossly intact. Nares grossly patent and without discharge. Mucous membranes moist. NECK: No JVD. Patient moves neck without restriction. CARDIO: Rhythm regular. Normal rate. No murmur, rub, or gallop. Pulses equal bilaterally in the upper and lower extremity. No lower extremity edema. PULM: Lungs clear to auscultation in all gonzalez. No wheezes, rales, or rhonchi. No conversational dyspnea. No splinting, stridor, or accessory muscle use. GI/: Abdomen is soft and non-tender. Normoactive bowel sounds. No flank tenderness. EXTREMITIES: Symmetric muscle bulk. No joint swelling. No clubbing, cyanosis, or deformity. SKIN: Warm and dry. Normal turgor. No rash or lesions appreciated. PSYCH: Mood, affect, and interaction is appropriate to the setting. Medical Decision Making 48-year-old female to the emergency department chief complaint of acute on chronic back pain. Vital stable, the patient is afebrile. There is no evidence by history or exam of cord compressing lesion. I discussed with the patient that I do not treat chronic pain in the emergency department she will not be provided a prescription for home. She is instructed continue her home medications. She was given an IM injection of morphine to help with the acute pain. She will follow-up with her neurosurgeon at . Return precautions were discussed. All questions were answered. The patient was discharged home. Assessment/Plan Chronic back pain (M54.9: Dorsalgia, unspecified) Other chronic pain (G89.29: Other chronic pain) Orders: morphine, 8 mg = 2 mL, Injection, IntraMuscular, Once, Stop date 01/14/24 20:52:00 EDT, STAT, Start date 01/14/24 20:52:00 EDT, 01/14/24 20:52:00 EDT Medications Administered Given morphine 4 mg/mL Inj, 8 mg, IntraMuscular Disposition Plan Patient Discharge Condition Stable Discharge Disposition Home Discharge Prescription List Prescriptions No active prescription medications Follow-up With When Contact Information Cheyanne Rosas In 3 days 01/17/2024 EDT [address] [facility] [address] [place] [phone] (1) Additional Instructions: Call the office of your primary care doctor [...] you develop any new or worsening symptoms. Seek immediate medical attention if you develop: increasing pain, numbness, tingling, weakness, loss of motion in your arms or legs, loss of control of your urine or stool, fever, abdominal pain, chest pain, shortness of breath, or any new or worsening symptoms. Patient Education Chronic Back Pain Problem List/Past Medical History Ongoing Arthritis of first carpometacarpal joint of right hand Bipolar disorder Chronic back pain Chronic hepatitis C Closed fr (more content not included)... Normal [facility] Comment on above: Result Comment: Elec tronically Signed By: Nikhil Tubbs DO\.br\Date and Time Signed: 01/14/24 21:33 EDT ED Patient Summaryon 024 ED Patient Summary ED Patient Summary [address] [address] Patient Discharge Instructions Person Information Name: JERAD TRACY Age: 48 Years Arrival Date: 01/14/2024 19:13:43 Discharge Diagnosis: Chronic back pain; Other chronic pain Primary Care Physician: Rlaph Cheyanne BEYER Provider Information Primary Provider: Nikhil Tubbs DO [employer] Kitchen:None The exam and treatment you received in the Emergency Department were for an urgent problem and are not intended as complete care. It is important that you follow up with a doctor, nurse practitioner, or physician???s insurance administrative assistant for ongoing care. If your symptoms [...] Instructions: With: Address: When: Cheyanne Rosas [address] [facility] [address], [place] [phone] [employer] (1) In 3 days 01/17/2024 Comments: Call the office of your primary care doctor [...] you develop any new or worsening symptoms. Seek immediate medical attention if you develop: increasing pain, numbness, tingling, weakness, loss of motion in your arms or legs, loss of control of your urine or stool, fever, abdominal pain, chest pain, shortness of breath, or any new or worsening symptoms. In the event that this physician does not participate in your insurance network, please consult with your insurance company to find a nearby participating provider. Patient Education Materials: Chronic Back Pain A MESSAGE TO ALL PATIENTS REGARDING OPIOIDS PRESCRIPTION OPIOIDS: WHAT YOU NEED TO KNOW Prescription opioids can be used to help relieve dohpvete-tw-efyusb pain and are often prescribed following a [...] as well, even when taken as directed: ??? Tolerance???meaning you might need to take more of the medication for the same pain relief ??? Physical dependence???meaning you have symptoms of withdrawal when a medication is stopped ??? Increased sensitivity to pain ??? Constipation ??? Nausea, vomiting, and dry mouth ??? Sleepiness and dizziness ??? Confusion ??? Depression ??? Low levels of testosterone that can result in lower sex drive, energy, and strength ??? Itching and sweating RISKS ARE GREATER WITH: ??? History of drug misuse, substance use disorder, or overdose ??? Mental health conditions (such as depression or anxiety) ??? Sleep apnea ??? Older age (65 years and older) ??? Avoid alcohol while taking prescription opioids. Also, unless specifically advised by your health care provider, medications to avoid include: ??? Benzodiazepines (such as Xanax or Valium) ??? Muscle relaxants (such as Soma or Flexeril) ??? Hypnotics (such as Ambien or Lunesta) ??? Other prescription opioids KNOW YOUR OPTIONS Talk to your health care provider about ways to manage your pain that don???t involve prescription opioids. Some of these options may actually work better and have fewer risks and side effects. Options may include: ??? Pain relievers such as acetaminophen, ibuprofen, and naproxen ??? Some medication that are also used for depression or seizures ??? Physical therapy and exercise ??? Cognitive behavioral therapy, a psychological, goal-directed approach, in which patients learn how to modify physical, behavioral, and emotional triggers of pain and stress. IF YOU ARE PRESCRIBED OPIOIDS FOR PAIN: ??? Never take opioids in greater amounts or more often than prescribed. ??? Follow up with your primary health care provider. o Work together to create a plan on (more content not included)... Normal [facility] MR LUMBAR SPINE WO IV CONTRA STon 01-10-2024 MR LUMBAR SPINE WO IV CONTRAST Interpreted By: Bernadette Tapia, STUDY: MR LUMBAR SPINE WO IV CONTRAST; 01/10/2024 8:51 pm INDICATION: Signs/Symptoms:left leg numbness, lower extremity weakness. COMPARISON: MRI of the lumbar spine dated 01/01/2024; 12/18/2023; 10/31/2023;. ACCESSION NUMBER(S): [id number] ORDERING CLINICIAN: GERMAINE BLAIR TECHNIQUE: Sagittal T1, T2, STIR, axial T1 and T2 weighted images of the lumbar spine were acquired. FINDINGS: Exam is somewhat degraded by motion. Lumbar vertebral alignment is maintained, without evidence of new spondylolisthesis. Lumbar vertebral body heights are preserved, without evidence of new compression fractures. No new signal abnormalities are present in the posterior elements of the lumbar spine. Marrow signal is within normal limits without evidence of new STIR hyperintense edema. There is redemonstration of piaq-uq-dgsturui disc height loss at the level of L4-L5, with intervertebral disc space is preserved at other levels. Lower thoracic spinal cord unremarkable in appearance. Conus medullaris terminates at the level of L1-L2. There is redemonstration of circumferential disc bulge with superimposed left subarticular disc protrusion at the level of L4-L5 which contributes to piyy-mx-cgnxjtij spinal canal and mild left-sided neural foraminal narrowing, unchanged in appearance to prior exams. This herniation again likely abuts and effaces the traversing left L4 nerve. No new posterior disc contour abnormality is identified in the lumbar spine. No new spinal canal or neural foraminal stenosis is present in the interim since prior exams. There is ongoing interval improvement in scarring and soft tissue edema in the superficial fat overlying the lumbar spine without evidence of new/acute abnormality within the paraspinal musculature. IMPRESSION: 1. Unchanged circumferential disc bulge with superimposed left subarticular disc herniation at the level of L4-L5, contributing to oltx-zk-eizrnsmg spinal canal and mild left-sided neural foraminal narrowing and likely abutment/effacement of the traversing left L5 nerve. 2. No new abnormality is identified in the lumbar spine in the interim to recent MRI on 01/01/2024. No new posterior disc contour abnormality or spinal canal stenosis is present. MACRO: None Signed by: Bernadette Tapia 01/10/2024 9:34 PM Dictation workstation: [id number] [facility] MR Lumbar spine WO nannetteo radha 01-10-2024 1. Unchanged circumferential disc bulge with superimposed left subarticular disc herniation at the level of L4-L5, contributing to estq-oh-qkavapek spinal canal and mild left-sided neural foraminal narrowing and likely abutment/effacement of the traversing left L5 nerve. 2. No new abnormality is identified in the lumbar spine in the interim to recent MRI on 01/01/2024. No new posterior disc contour abnormality or spinal canal stenosis is present. MACRO: None Signed by: Bernadette Tapia 01/10/2024 9:34 PM Dictation workstation: [id number] [facility] Interpreted By: Bernadette Tapia, STUDY: MR LUMBAR SPINE WO IV CONTRAST; 01/10/2024 8:51 pm INDICATION: Signs/Symptoms:left leg numbness, lower extremity weakness. COMPARISON: MRI of the lumbar spine dated 01/01/2024; 12/18/2023; 10/31/2023;. ACCESSION NUMBER(S): [id number] ORDERING CLINICIAN: GERMAINE BLAIR TECHNIQUE: Sagittal T1, T2, STIR, axial T1 and T2 weighted images of the lumbar spine were acquired. FINDINGS: Exam is somewhat degraded by motion. Lumbar vertebral alignment is maintained, without evidence of new spondylolisthesis. Lumbar vertebral body heights are preserved, without evidence of new compression fractures. No new signal abnormalities are present in the posterior elements of the lumbar spine. Marrow signal is within normal limits without evidence of new STIR hyperintense edema. There is redemonstration of ovgk-xr-aqpikkff disc height loss at the level of L4-L5, with intervertebral disc space is preserved at other levels. Lower thoracic spinal cord unremarkable in appearance. Conus medullaris terminates at the level of L1-L2. There is redemonstration of circumferential disc bulge with superimposed left subarticular disc protrusion at the level of L4-L5 which contributes to ytbx-ms-fqshuiif spinal canal and mild left-sided neural foraminal narrowing, unchanged in appearance to prior exams. This herniation again likely abuts and effaces the traversing left L4 nerve. No new posterior disc contour abnormality is identified in the lumbar spine. No new spinal canal or neural foraminal stenosis is present in the interim since prior exams. There is ongoing interval improvement in scarring and soft tissue edema in the superficial fat overlying the lumbar spine without evidence of new/acute abnormality within the paraspinal musculature. [facility] Dariana Tapia v, MD - 01/10/2024 Interpreted By: Bernadette Tapia, STUDY: MR LUMBAR SPINE WO IV CONTRAST; 01/10/2024 8:51 pm INDICATION: Signs/Symptoms:left leg numbness, lower extremity weakness. COMPARISON: MRI of the lumbar spine dated 01/01/2024; 12/18/2023; 10/31/2023;. ACCESSION NUMBER(S): [id number] ORDERING CLINICIAN: GERMAINE BLAIR TECHNIQUE: Sagittal T1, T2, STIR, axial T1 and T2 weighted images of the lumbar spine were acquired. FINDINGS: Exam is somewhat degraded by motion. Lumbar vertebral alignment is maintained, without evidence of new spondylolisthesis. Lumbar vertebral body heights are preserved, without evidence of new compression fractures. No new signal abnormalities are present in the posterior elements of the lumbar spine. Marrow signal is within normal limits without evidence of new STIR hyperintense edema. There is redemonstration of wqfb-dc-morupuzx disc height loss at the level of L4-L5, with intervertebral disc space is preserved at other levels. Lower thoracic spinal cord unremarkable in appearance. Conus medullaris terminates at the level of L1-L2. There is redemonstration of circumferential disc bulge with superimposed left subarticular disc protrusion at the level of L4-L5 which contributes to iuhw-nu-uafqgkxb spinal canal and mild left-sided neural foraminal narrowing, unchanged in appearance to prior exams. This herniation again likely abuts and effaces the traversing left L4 nerve. No new posterior disc contour abnormality is identified in the lumbar spine. No new spinal canal or neural foraminal stenosis is present in the interim since prior exams. There is ongoing interval improvement in scarring and soft tissue edema in the superficial fat overlying the lumbar spine without evidence of new/acute abnormality within the paraspinal musculature. IMPRESSION: 1. Unchanged circumferential disc bulge with superimposed left subarticular disc herniation at the level of L4-L5, contributing to mxfc-jn-ezosdilc spinal canal and mild left-sided neural foraminal narrowing and likely abutment/effacement of the traversing left L5 nerve. 2. No new abnormality is identified in the lumbar spine in the interim to recent MRI on 01/01/2024. No new posterior disc contour abnormality or spinal canal stenosis is present. MACRO: None Signed by: Bernadette Tapia 01/10/2024 9:34 PM Dictation workstation: [id number] [facility] Work Phone: Radiology Study observation (narrative) [facility] Work Phone: MR Lumbar spine WO contrastO rdered By: Bernadette Tapia on 01-10-2024 [facility] Work Phone: Basic metabolic 2000 panelon 01-08-2024 Anion gap [Moles/Vol] 11 mmol/L 10 - 2 0 mmol/L [facility] Calcium [Mass/Vol] 8 mg/dL Low 8.6 - 10. 3 mg/dL [facility] Chloride [Moles/Vol] 98 mmol/L 98 - 10 7 mmol/L [facility] CO2 [Moles/Vol] 29 mmol/L 21 - 32 mmol/L [facility] Creatinine [Mass/Vol] 0.65 mg/dL 0.50 - 1.05 mg/dL [facility] eGFR - PINF [facility] Comment on above: Calculations of juan antonio mated GFR are performed using the 2020 CKD-EPI Study Refit equation without the race variable for the IDMS-Traceable creatinine methods. https://jasn.asnjournals.org/content//ASN.77521 07846 Glucose [Mass/Vol] 108 mg/dL High 74 - 99 mg/dL [facility] Interpretation and review of laboratory results Abnormal [facility] Potassium [Moles/Vol] 4.1 mmol/L 3.5 - 5.3 mmol/L [facility] Sodium [Moles/Vol] 134 mmol/L Low 136 - 145 mmol/L [facility] Urea nitrogen [Mass/Vol] 17 mg/dL 6 - 23 mg/dL [facility] Anion gap [Moles/Vol] 11 mmol/L Normal 10-20 [facility] Comment on above: Performed By: #### 3 4529-8 #### SANTOSH BAI ([id number]) [facility] ([facility]) [address] [place] [address] Calcium [Mass/Vol] 8.0 mg/dL Low 8.6-10.3 [facility] Comment on above: Performed By: #### 3 4529-8 #### SANTOSH BAI ([id number]) [facility] ([facility]) [address] [place] [address] Chloride [Moles/Vol] 98 mmol/L Normal 98-107 [facility] Comment on above: Performed By: #### 3 4529-8 #### SATNOSH BAI ([id number]) [facility] ([facility]) [address] [place] [address] CO2 [Moles/Vol] 29 mmol/L Normal 21-32 [facility] Comment on above: Performed By: #### 3 4529-8 #### SANTOSH BAI ([id number]) [facility] ([facility]) [address] [place] [address] Creatinine [Mass/Vol] 0.65 mg/dL Normal 0.50-1.05 [facility] Comment on above: Performed By: #### 3 4529-8 #### SANTOSH BAI ([id number]) [facility] ([facility]) [address] [place] [address] GFR/1.73 sq M.predicted MDRD (S/P/Bld) [Vol rate/Area] mL/min/{1.73_m2} Normal >60 [facility] Comment on above: Result Comment: Calc ulations of estimated GFR are performed using the 2020 CKD-EPI Study Refit equation without the race variable for the IDMS-Traceable creatinine methods. https://jasn.asnjournals.org/content///ASN.43366 26956 Performed By: #### 3 4529-8 #### SANTOSH BAI ([id number]) [facility] ([facility]) [address] [place] [address] Glucose [Mass/Vol] 108 mg/dL High 74-99 [facility] Comment on above: Performed By: #### 3 4529-8 #### SANTOSH BAI ([id number]) [facility] ([facility]) [address] [place] [address] Potassium [Moles/Vol] 4.1 mmol/L Normal 3.5-5.3 [facility] Comment on above: Performed By: #### 3 4529-8 #### SANTOSH BAI ([id number]) [facility] ([facility]) [address] [place] [address] Sodium [Moles/Vol] 134 mmol/L Low 136-145 [facility] Comment on above: Performed By: #### 3 4529-8 #### SANTOSH BAI ([id number]) [facility] ([facility]) [address] [place] [address] Urea nitrogen [Mass/Vol] 17 mg/dL Normal 6-23 [facility] Comment on above: Performed By: #### 3 4529-8 #### SANTOSH BAI ([id number]) [facility] ([facility]) [address] [place] [address] Lavender Topon 01-08-2024 Extra Tube Hold for add-ons. [facility] Comment on above: Auto resulted. [facility] Basic metabolic 2000 panelon 01-07-2024 Anion gap [Moles/Vol] 10 mmol/L 10 - 2 0 mmol/L [facility] Calcium [Mass/Vol] 8.4 mg/dL Low 8.6 - 10. 3 mg/dL [facility] Chloride [Moles/Vol] 98 mmol/L 98 - 10 7 mmol/L [facility] CO2 [Moles/Vol] 31 mmol/L 21 - 32 mmol/L [facility] Creatinine [Mass/Vol] 0.78 mg/dL 0.50 - 1.05 mg/dL [facility] eGFR - PINF [facility] Comment on above: Calculations of juan antonio mated GFR are performed using the 2020 CKD-EPI Study Refit equation without the race variable for the IDMS-Traceable creatinine methods. https://jasn.asnjournals.org/content//ASN.43693 69327 Glucose [Mass/Vol] 116 mg/dL High 74 - 99 mg/dL [facility] Interpretation and review of laboratory results Abnormal [facility] Potassium [Moles/Vol] 4.2 mmol/L 3.5 - 5.3 mmol/L [facility] Sodium [Moles/Vol] 135 mmol/L Low 136 - 145 mmol/L [facility] Urea nitrogen [Mass/Vol] 15 mg/dL 6 - 23 mg/dL [facility] Anion gap [Moles/Vol] 10 mmol/L Normal 10-20 [facility] Comment on above: Performed By: #### 3 4529-8 #### SANTOSH BAI ([id number]) [facility] ([facility]) [address] [place] [address] Calcium [Mass/Vol] 8.4 mg/dL Low 8.6-10.3 [facility] Comment on above: Performed By: #### 3 4529-8 #### SANTOSH BAI ([id number]) [facility] ([facility]) [address] [place] [address] Chloride [Moles/Vol] 98 mmol/L Normal 98-107 [facility] Comment on above: Performed By: #### 3 4529-8 #### SANTOSH BAI ([id number]) [facility] ([facility]) [address] [place] [address] CO2 [Moles/Vol] 31 mmol/L Normal 21-32 [facility] Comment on above: Performed By: #### 3 4529-8 #### SANTOSH BAI ([id number]) [facility] ([facility]) [address] [place] [address] Creatinine [Mass/Vol] 0.78 mg/dL Normal 0.50-1.05 [facility] Comment on above: Performed By: #### 3 4529-8 #### SANTOSH BAI ([id number]) [facility] ([facility]) [address] [place] [address] GFR/1.73 sq M.predicted MDRD (S/P/Bld) [Vol rate/Area] mL/min/{1.73_m2} Normal >60 [facility] Comment on above: Result Comment: Calc ulations of estimated GFR are performed using the 2020 CKD-EPI Study Refit equation without the race variable for the IDMS-Traceable creatinine methods. https://jasn.asnjournals.org/content/early//ASN.68924 40542 Performed By: #### 3 4529-8 #### SANTOSH BAI ([id number]) [facility] ([facility]) [address] [place] [address] Glucose [Mass/Vol] 116 mg/dL High 74-99 [facility] Comment on above: Performed By: #### 3 4529-8 #### SANTOSH BAI ([id number]) [facility] ([facility]) [address] [place] [address] Potassium [Moles/Vol] 4.2 mmol/L Normal 3.5-5.3 [facility] Comment on above: Performed By: #### 3 4529-8 #### SANTOSH BAI ([id number]) [facility] ([facility]) [address] [place] [address] Sodium [Moles/Vol] 135 mmol/L Low 136-145 [facility] Comment on above: Performed By: #### 3 4529-8 #### SANTOSH BAI ([id number]) [facility] ([facility]) [address] [place] [address] Urea nitrogen [Mass/Vol] 15 mg/dL Normal 6-23 [facility] Comment on above: Performed By: #### 3 4529-8 #### SANTOSH BAI ([id number]) [facility] ([facility]) [address] [place] [address] CBC W Auto Differential pane l (Bld)on 01-07-2024 Basophils (Bld) [#/Vol] 0.01 10*3/uL [facility] Basophils/100 WBC (Bld) 0.1 % 0.0 - 2.0 % [facility] Eosinophils (Bld) [#/Vol] 0.32 10*3/uL [facility] Eosinophils/100 WBC (Bld) 2.9 % 0.0 - 6.0 % [facility] Erythrocyte distribution width (RBC) [Ratio] 13.2 % 11.5 - 14.5 % [facility] Hematocrit (Bld) [Volume fraction] 39.6 % 36.0 - 46.0 % [facility] Hemoglobin (Bld) [Mass/Vol] 13 g/dL 12.0 - 16.0 g/dL [facility] Immature granulocytes (Bld) [#/Vol] 0.07 10*3/uL [facility] Immature granulocytes/100 WBC (Bld) 0.6 % 0.0 - 0.9 % [facility] Comment on above: Immature Granulocyte Count (IG) includes promyelocytes, myelocytes and metamyelocytes but does not include bands. Percent differential counts (%) should be interpreted in the context of the absolute cell counts (cells/UL). Lymphocytes (Bld) [#/Vol] 2.86 10*3/uL [facility] Lymphocytes/100 WBC (Bld) 25.8 % 13.0 - 44.0 % [facility] MCH (RBC) [Entitic mass] 30.8 pg 26.0 - 34.0 pg [facility] MCHC (RBC) [Mass/Vol] 32.8 g/dL 32.0 - 36.0 g/dL [facility] MCV (RBC) [Entitic vol] 94 fL 80 - 100 fL [facility] Monocytes (Bld) [#/Vol] 0.79 10*3/uL [facility] Monocytes/100 WBC (Bld) 7.1 % 2.0 - 10.0 % [facility] Neutrophils (Bld) [#/Vol] 7.02 10*3/uL [facility] Comment on above: Percent differential counts (%) should be interpreted in the context of the absolute cell counts (cells/uL). Neutrophils/100 WBC (Bld) 63.5 % 40.0 - 80.0 % [facility] Nucleated RBC/100 WBC (Bld) [Ratio] 0 % [facility] Platelets (Bld) [#/Vol] 301 10*3/uL [facility] RBC (Bld) [#/Vol] 4.22 10*6/uL [facility] WBC (Bld) [#/Vol] 11.1 10*3/uL [facility] Basophils (Bld) [#/Vol] 0.01 x10*3/uL Normal 0.00-0.10 [facility] Comment on above: Performed By: #### 3 4529-8 #### SANTOSH ABI ([id number]) [facility] ([facility]) [address] [place] [address] Basophils/100 WBC (Bld) 0.1 % Normal 0.0-2.0 [facility] Comment on above: Performed By: #### 3 4529-8 #### SANTOSH BAI ([id number]) [facility] ([facility]) [address] [place] [address] Eosinophils (Bld) [#/Vol] 0.32 x10*3/uL Normal 0.00-0.70 [facility] Comment on above: Performed By: #### 3 4529-8 #### SANTOSH BAI ([id number]) [facility] ([facility]) [address] [place] [address] Eosinophils/100 WBC (Bld) 2.9 % Normal 0.0-6.0 [facility] Comment on above: Performed By: #### 3 4529-8 #### SANTOSH BAI ([id number]) [facility] ([facility]) [address] [place] [address] Erythrocyte distribution width (RBC) [Ratio] 13.2 % Normal 11.5-14.5 [facility] Comment on above: Performed By: #### 3 4529-8 #### SANTOSH BAI ([id number]) [facility] ([facility]) [address] [place] [address] Hematocrit (Bld) [Volume fraction] 39.6 % Normal 36.0-46.0 [facility] Comment on above: Performed By: #### 3 4529-8 #### SANTOSH BAI ([id number]) [facility] ([facility]) [address] [place] [address] Hemoglobin (Bld) [Mass/Vol] 13.0 g/dL Normal 12.0-16.0 [facility] Comment on above: Performed By: #### 3 4529-8 #### SANTOSH BAI ([id number]) [facility] ([facility]) [address] [place] [address] Immature granulocytes (Bld) [#/Vol] 0.07 x10*3/uL Normal 0.00-0.70 [facility] Comment on above: Performed By: #### 3 4529-8 #### SANTOSH BAI ([id number]) [facility] ([facility]) [address] [place] [address] Immature granulocytes/100 WBC (Bld) 0.6 % Normal 0.0-0.9 [facility] Comment on above: Result Comment: Aspen ture Granulocyte Count (IG) includes promyelocytes, myelocytes and metamyelocytes but does not include bands. Percent differential counts (%) should be interpreted in the context of the absolute cell counts (cells/UL). Performed By: #### 3 4529-8 #### SANTOSH BAI ([id number]) [facility] ([facility]) [address] [place] [address] Lymphocytes (Bld) [#/Vol] 2.86 x10*3/uL Normal 1.20-4.80 [facility] Comment on above: Performed By: #### 3 4529-8 #### SANTOSH BAI ([id number]) [facility] ([facility]) [address] [place] [address] Lymphocytes/100 WBC (Bld) 25.8 % Normal 13.0-44.0 [facility] Comment on above: Performed By: #### 3 4529-8 #### SANTOSH BAI ([id number]) [facility] ([facility]) [address] [place] [address] MCH (RBC) [Entitic mass] 30.8 pg Normal 26.0-34.0 [facility] Comment on above: Performed By: #### 3 4529-8 #### SANTOSH BAI ([id number]) [facility] ([facility]) [address] [place] [address] MCHC (RBC) [Mass/Vol] 32.8 g/dL Normal 32.0-36.0 [facility] Comment on above: Performed By: #### 3 4529-8 #### SANTOSH BAI ([id number]) [facility] ([facility]) [address] [place] [address] MCV (RBC) [Entitic vol] 94 fL Normal 80-100 [facility] Comment on above: Performed By: #### 3 4529-8 #### SANTOSH BAI ([id number]) [facility] ([facility]) [address] [place] [id number] Monocytes (Bld) [#/Vol] 0.79 x10*3/uL Normal 0.10-1.00 [facility] Comment on above: Performed By: #### 3 4529-8 #### SANTOSH BAI ([id number]) [facility] ([facility]) [address] [place] [id number] Monocytes/100 WBC (Bld) 7.1 % Normal 2.0-10.0 [facility] Comment on above: Performed By: #### 3 4529-8 #### SANTOSH BAI ([id number]) [facility] ([facility]) [address] [place] [id number] Neutrophils (Bld) [#/Vol] 7.02 x10*3/uL Normal 1.20-7.70 [facility] Comment on above: Result Comment: Perc ent differential counts (%) should be interpreted in the context of the absolute cell counts (cells/uL). Performed By: #### 3 4529-8 #### SANTOSH BAI ([id number]) [facility] ([facility]) [address] [place] [id number] Neutrophils/100 WBC (Bld) 63.5 % Normal 40.0-80.0 [facility] Comment on above: Performed By: #### 3 4529-8 #### SANTOSH BAI ([id number]) [facility] ([facility]) [address] [place] [address] Nucleated RBC/100 WBC (Bld) [Ratio] 0.0 /100 WBCs Normal 0.0-0.0 [facility] Comment on above: Performed By: #### 3 4529-8 #### SANTOSH BAI ([id number]) [facility] ([facility]) [address] [place] [address] Platelets (Bld) [#/Vol] 301 x10*3/uL Normal 150-450 [facility] Comment on above: Performed By: #### 3 4529-8 #### SANTOSH BAI ([id number]) [facility] ([facility]) [address] [place] [id number] RBC (Bld) [#/Vol] 4.22 x10*6/uL Normal 4.00-5.20 [facility] Comment on above: Performed By: #### 3 4529-8 #### SANTOSH BAI ([id number]) [facility] ([facility]) [address] [place] [address] WBC (Bld) [#/Vol] 11.1 x10*3/uL Normal 4.4-11.3 [facility] Comment on above: Performed By: #### 3 4529-8 #### SANTOSH BAI ([id number]) [facility] ([facility]) [address] [place] [address] Coding Summaryon 01-07-2024 Coding Summary HTMLBase 64 XwqssdklDDm2nPb+PGhlYWQ +SK0KCIXqX22rkGTrmJ1kJ9 NMTElOSywgQVBQTElOSyIgb hVfUC9ghKOqKWFg IC8+YX2qFAAaYeizkKDoo6H 2yXA3T51ytj2dMGlrgBE2FD TdJeKqujfvw1bcqEz8YBpkB mluOyBt VIMhsS88YDW9kX37Kl75iVH rcQOzx9sidHz2GuKbVPHlFU N3bXhmIEnue2IqRIQlL09ky LQcf8M2 EXEuxMxauFFcTiLqcEG9wW1 jIHpafutzr8gkrufyPxp2bj 69aLAoy3E4vOC3P3TpwdE9I GJvbGQg ZbtucRQFyN8ljndpk0eomca nUnPmLJRnRSl1KEg8XSFocT snNiBbVT77MHS6NNQnifGoY 2FsLWFs kZbyCkV6d7D8Up7VO8OUTlm qQ8XHXDESCFecxVQ+PC90cj 26W7BdQvbuUlt9VASyHTX9i HY4bR4t WXAsCZirz1C9iTN2O1LaxoO wjf8ii2dwBFOxYHwgW09mfN Wxx3C9GVHitVK6LRBwkUsxI iBzaG93 Oyc+WZCzcOmql7SsDdccd4o nm7pjfJp0FzqmMYCuhdEffM fiWXA3f4DxOe3jNSRvkVB2g YL1vT7p ZxWaNxG2KEylY729CsSahYU xLxqrB61tX5JlbOO+PHRyPj e1RMFgrDfbDC6eG4FjAGVoc mctbGVm dTmxCO3mMZThurgdWWWknZ1 lIPThL0b1OtObYnQ6BAknJ9 EfUWRaruuyLc09oZ0yEgBtK dT2DBwy L2WbslZ9CPLbiXFdANmhTFK 4R75sa5V6ERLmYDZsADO6nJ O0qU1vtCvgmzgkdTMrpJvls mVydGlj EKqrQFpcP890FMNokGzfBfU vZGluZyBEYXRlOiAgMTAvMT UvMjAyNDwvdGQ+ONTsFNV6i WxlPSAn uOCvDEpqDw0xhHssuOsrBN3 vKXBlwebvCUZohX7pHIOreE UvxFhfLP2fXBSxtumnp057S iAxMHB0 FTNiyEPsQ7QopW0nSwFoBSQ tDUGgV5BmhPNdSJkoO302TV kcNuE9VUDftpImK0HvYEPnf WduOiB0 t6I4Ns3Ju0WlfwczA3CmzEP mYgCsSvvfQKx1T4QnJimyhD I+FN92UKQyRS92QTd6WZI1i WxlPSdi DSTtD5OikL7xEpHvCGAdWDX kOyc+PHRhYmxlIHdpZHRoPS teKLRtAjQgqSbtMR4dUo8lW GVyLWNv cRknuDGrGlTki3qeHNDmEZn gYE4vvQpgZ7YvoKG2ZQLga5 e5Ml74P94dR6YayBZ+PGNvb NB0aPG2 bO5vYaQsWrR6GWqhU939ViP mmHXtGiqsg9rsg8gclLj3Cq X8GMIkjlKutPahPHZ7m6FnE y33L42y IHdpZHRoPSIxNSUiIHZhbGl gfv2bzG8kUh8+UYGuaLD9wF T9zS9fBtDkXwL6CWssF076P nRvcCIv Hzxoz7jzz7plaZd7UfEzGFN shtJdcSqzYMT7i3NbYm82L3 TrqXjnq0PuUka2vn81kSVql 0G7uVT2 B8QtWHQknmzguQWuhEbdNT6 eKOHolllsFISadX6gNQRlJ2 s9AdEyLhG9PHaxL7KncuM9F GJvbGQg KOFrmBKXtP8hwzokw4ljjgl tJyJwAGXmKGp3DYi8LVWqkW dnIeAwUEE9KmB8EFP3dTKcz F8ljZvz etnyzI5xEtt+MCZ6iMXsdEN SCC9iRxnnfRA+SGIcLRF6zL gwJJyyOMHspL2yNVTxW0f6K iAwLjA1 ENhgD5QcydJ1VVFynRIeSYK nzTXTpI1coljfr1nwlrwdIc BtSSBuGIf2ZQo1YOHwkNefP iBsZWZ0 ZoG6BMR6nKEuaA1tvGwolap qvB0xJzd+OqvutFkbLWV1NK i8F3VjImr2VHPytFeoIA8mi GFkZGlu Ln0zqXfncWipMV4jWRLlxhh at029FcPms7veHCQwcOEwEW zzRMM1R59yo7D7BDXkGMRsL VH3lEI8 gM4djEbemkqtyXCfxWxllzA ohJzdGOskLPtiG342QBWilY joKePfJUt8D5RwHae8UNMjp VczOF4k fZJbVZuhCj5lwLovpMsnBB7 hEUAeboqkm420JvKgv6bjXS UlqDUnGPgfTUQ1C64bv8G2A CMwMDAw YXA2uKF8hN1xtIcdqahulJR mdDsgdmVydGljYWwtYWxpZ2 88WFBczNbtRaNvaJi9C1ThF jn8VRMd fCwcAV5qgMPxQNqqHk7nbPp ebQptXF7dHRChvmeyx605Wk Iaz9bqJRYgfKAtGJvaLIP8J 62vq3Y6 LZBcPZIyHFU6uUD7vQ5tvBb nbjogbGVmdDsgdmVydGljYW tmARduD219BCHoxGrtSzNun GllbnQg GTgfFGq6L6EdTzhylOW+PC9 6KFNsGO14yDCgePYfj9uobU f0IwOcKHOtEIU2vTszBUhnf 3JkZXIt L13ahWClj7Y3QCNisVfhrSJ tWzUzpPZ7bA3lQPhxqyiwr7 qyuhjsBmeoe3yqri80bD66T 29sIHdp ZHRoPSIzMCUiIHZhbGlnbj0 ssO8fUp2+OVMizOK7pVV6wH 6iZBLkByH9ERagO615SaPcq CIvPjxj a1iau3wkxNr7QzH1QRYpogR czDjdMQK8z3KlGi41T36dAZ dpZHRoPSIyMCUiIHZhbGlnb s9dfU6b Ii8+BZNctIX3rSY0gX7rZgB pMxJ2AKpaH266AqYhcMJhJc smQ41bK7BfgGZ+BDGjHbf8L CBzdHls GN6aiLDeTFjuYc1yEMW3BlR oLwOcOSweM7DqOOGsojqqtg pxgVA9FOZmCSCccZ06Iq4lg DogMTBw iCEIcI5bemimt2efkuibSrN fMWMfFYi9XPv2BVRlbFviKb IjULI1QkR9VGU4wLPrsD2my Glnbjog cW2cC8ZmYZTfzwmcNn85hO9 vEuVaQcT8HUhhAbs+TElFQi zwQNCOKMHCJZHOMndFCnC0R 5DtRkb4 IYZmhQseRW2hhHIzIWelVm3 ukErltAujUM4aAGRkcandWW HqdJ5bWMLnnIQfnTlxMG2oL TBpbjtm f480MoTbYKF3NXUphHZsH1H syN7cUpXyTVCpXXSiK6KabL EvVYeaD295OYciXmN2PIXoa gFqC8Bn OAHoeXpjFkH2g9G9Am2zRw7 kLG2tVHh0FN50BW47kMDyg0 M3hXE8A1MrQDRqzvgdpdwmj ZS1TSPi HEIqlG70tRVbJOjeFx5wx7J 3d636TDLeZZOmlO48Pn4tjK lgJBSwpOYZjX0ccueiz5yrf jogIzAw MBEvEXm2DFh7XIZqaNzwHdG jPJN0ZuR0CAN1aOCouM7omD hzxyhovS0sUfu+NDYgWWVhc tX5O6Kb Aoe6OEIotJvqSQ1wwMOhQXh uQv9vzAftcRqpFX3cQTNdvv vjTIEghS1cTOXxxVGswLgbG J0zRPLv sdwal052OmTxBBU0GNVkmNW bF1MfhM3mPhWvVYCkJJGtW6 GipKBuFFesV162FPpfLeA8K HZlcnRp W8WzEMSekOgeTvM0c6N7Ii7 UIC4WJTV6Q0LtRlf1ZFZxvD lvXL8zoXSlJGzgXx8siBjks UreDP9k DZDdmjvxREEwnL3uFAQuxYY jsSbtKX1mXHYjndjal576Xf NvGUS2XQCzhAXfH0EinJ1zU iAjMDAw VYObG0YsdEFjFFtbW349SJc dZyG5ZFZcvlVfG4RmZWIxyV kbAoU0t6S8Ei5TpRWmD4CrN 4k8S8Ga PjwvdHI+GS28CLAzFB12fCM wlTTdb7splIz2WaLyNEMlAA T1iHjdKLicg5BhJXRkP95ps TGgh9F2 LIYmsVipqDOdLnXwmOQ7zR6 qVZjebvlwz6lvzfteAjkjn9 refu95jY07S50dDYkqGPSeA SIzMCUi MYMluYufcw3ikL7zPe7+PGN wjHX7rGO6aX2uIpBtAuH5HR isJ093ShByeNAdHtwkg7ekq 3ykfYh9 HrDmWMQgohPmzLroZWB9u4F wGr22N36iNAeuNSZsXNQbQV OhFPDzfUbegb4gbN0aSb5+P W1hy8ah dy50hJ09qGD+XCMtNYY1mPd fHDenAGBgfK4lLOqdGwO3JB TrPdQxmC36iRNnDCbbLg1ua WdodDog AM1xKNOoweswm645FmOxo4b fNVOnxEPtDIqvTDN6W86kc8 L3ZAVyXXSfMXY1aOH1wM9tn Glnbjog bGVmdDsgdmVydGljYWwtYWx vJ061JDEkuDqiUtQseWDeK8 swjyFKHH1bCfcvaXI+PHRkI XQ6qPkz MGzoRNWueX7vOSAlT0y8LwR nSvT7BXcjK4MirmB2JVQuzA PpQMUrmUNKfX5qvinwo6xte jogIzAw GPQbDTu4ZKm6FKGakJzoIwV jQFV7FhX7QMQ6cZFxnI0gzH bujrjihM8tKfm+RklOOjwvd GQ+PHRk XRO1cHvdBDugGNYgrG5cGQO pF4u8ZnJmKkW8XTzpY2Xirs N3QIWllHEdZYHjlBALqQ3kv ovqj9ir kqfyFyDuUONbHPq3AAw1RYF ruOlfShVdPLM7SuZ1RIR2hZ DwiA9oaIrpodhpsT2xYva+T VJOOjwv dGQ+VSHiYNE9aQbaYIltJMO gvK8tREEbD3q2IgByZzF3WN obY2ByrtI1SBGutKYzXXQrz GDMvT3a thdsz3fzplecYqPcQVVpGDv 6RKt0YKUvoOcpPgBnODB6Bd R7AFQ4hCOvqR8icGkgbboqp G9wOyc+ UCN2TEM1TK22GR22S3MzYwn vdGFibGU+PHRhYmxlIHdpZH VwVIfoEHEyObLndKhfGY3iH a3fQVHq LWN (more content not included)... [facility] ED Note-Physicianon 01-07-20 ED Note-Physician ED Note-Physician Basic Information Time Seen: Brandon MILESRobert 01/06/2024 11:42 Chief Complaint Pt presents to ED with complaints of low back pain and right leg numbness r/t buldging disc. pt recently admitted to for symptoms. Pt also c/o possible foreign body in throat x2 days. No RR distress noted History of Present Illness 48-year-old female comes to the ED for evaluation of 2 separate complaints. First she is complaining acute on chronic back and leg pain. She has a history of lumbar disc disease with radiculopathy. She complains of pain and paresthesia to bilateral lower extremities. Signs of ongoing for weeks. No acute sudden change in her symptoms. She is able to ambulate. No abdominal pain. No bladder or bowel dysfunction. No fever or chills. Secondly she is complaining of a sore throat. She has a foreign body sensation in her throat. That is been ongoing for the last few days. She awoke with the symptoms. Wonders if she inhaled something while she was sleeping. Review of Systems A 10 point review of systems is negative except as noted above. Medical and Surgical History: Reviewed and noted Social history: Lives at home Tobacco: Denies Physical Exam Vitals & Measurements T: 36.7 ?C(Oral) HR: 83(Peripheral) RR: 18 BP: 154/86 SpO2: 97% HT: 160 cm WT: 114.8 kg BMI: 44.84 Nurses notes and vital signs reviewed and patient is not hypoxic. General: The patient appears well, resting comfortably. Skin: Warm, dry. Head: Atraumatic. Neck: No JVD. Eye: Normal conjunctiva. Ears, Nose, Mouth, and Throat: Moist mucous membranes. No pharyngeal erythema, tonsil hypertrophy or exudates. No stridor, trismus or drooling. No difficulty with speaking or swallowing. Cardiovascular: Strong distal pulses. Chest wall: Respiratory: Respirations are nonlabored. Back: Normal range of motion. Sensation is grossly intact to the lower extremities. Good distal pulses. No soft tissue swelling ecchymosis or erythema. Musculoskeletal: Normal ROM with no gross deformity. Gastrointestinal: Urological: Neurological: Awake and alert. No focal deficits. Follows commands. Psychiatric: Cooperative. Medical Decision Making Patient presents with sore throat and concerns of foreign body. Imaging shows no acute findings. She has no difficulty with speaking or swallowing. She has acute on chronic lumbar radiculopathy was medicated here with intramuscular morphine with improvement. She is on Percocet chronically. She is discharged to follow-up with her PCP and neurosurgeon. Patient was encouraged to return to the ED if symptoms worsen or change. Assessment/Plan Lumbar radiculopathy (M54.16: Radiculopathy, lumbar region) Pharyngitis (J02.9: Acute pharyngitis, unspecified) Orders: morphine, 8 mg = 2 mL, Injection, IntraMuscular, Once, Stop date 01/06/24 12:13:00 EDT, STAT, Start date 01/06/24 12:13:00 EDT, 01/06/24 12:13:00 EDT ondansetron, 4 mg = 1 tab(s), Tab-Dis, Oral, Once, Stop date 01/06/24 12:13:00 EDT, STAT, Start date 01/06/24 12:13:00 EDT, 01/06/24 12:13:00 EDT XR Neck Soft Tissue Medications Administered Given morphine 4 mg/mL Inj, 8 mg, IntraMuscular Zofran ODT 4 mg Tab-Dis, 4 mg, Oral Disposition Plan Patient Discharge Condition Disposition: Discharged home Condition: Improved and stable Counseled: Patient and/or family were counseled to workup, results, treatment plan and follow-up recommendations Discharge Prescription List Prescriptions No active prescription medications Follow-up With When Contact Information Cheyanne Rosas In 3 days 01/09/2024 EDT [address] [facility] [address] [place] [id number] [facility] (1) Additional Instructions: Patient Education Lumbosacral Radiculopathy Attestation I performed a substantive part of the MDM during the patient?s E/M visit. I personally made or approved the documented management plan and acknowledge its risk of complications. (Independent Interpretation) My (EKG/X-Ray/US/CT) interpretation as above. (Discussion) Management/test interpretation discussed with APC. This report was transcribed using voice recognition software. Every effort was made to ensure accuracy, however, inadvertently computerized cutter machine mistakes may be present. Appropriate healthcare PPE was used in evaluating this patient. Problem List/Past Medical History Ongoing Arthritis of [...] Hepatitis C Liver disease Migraines Procedure/Surgical History Hysterecto (more content not included)... Normal [facility] Comment on above: Result Comment: Elec tronically Signed By: Robert Taylor PA-C\.br\Date and Time Signed: 01/06/24 13:52 EDT\.br\Electronically Co-Signed By: Jorge Mcintosh DO\.br\Date and Time Co-Signed: 01/07/24 08:31 EDT CBC W Auto Differential pane l (Bld)on 01-06-2024 Basophils (Bld) [#/Vol] 0.02 10*3/uL [facility] Basophils/100 WBC (Bld) 0.2 % 0.0 - 2.0 % [facility] Eosinophils (Bld) [#/Vol] 0.32 10*3/uL [facility] Eosinophils/100 WBC (Bld) 2.6 % 0.0 - 6.0 % [facility] Erythrocyte distribution width (RBC) [Ratio] 13.2 % 11.5 - 14.5 % [facility] Hematocrit (Bld) [Volume fraction] 41.3 % 36.0 - 46.0 % [facility] Hemoglobin (Bld) [Mass/Vol] 13.6 g/dL 12.0 - 16.0 g/dL [facility] Immature granulocytes (Bld) [#/Vol] 0.08 10*3/uL [facility] Immature granulocytes/100 WBC (Bld) 0.6 % 0.0 - 0.9 % [facility] Comment on above: Immature Granulocyte Count (IG) includes promyelocytes, myelocytes and metamyelocytes but does not include bands. Percent differential counts (%) should be interpreted in the context of the absolute cell counts (cells/UL). Interpretation and review of laboratory results Abnormal [facility] Lymphocytes (Bld) [#/Vol] 3.09 10*3/uL [facility] Lymphocytes/100 WBC (Bld) 25.1 % 13.0 - 44.0 % [facility] MCH (RBC) [Entitic mass] 30.6 pg 26.0 - 34.0 pg [facility] MCHC (RBC) [Mass/Vol] 32.9 g/dL 32.0 - 36.0 g/dL [facility] MCV (RBC) [Entitic vol] 93 fL 80 - 100 fL [facility] Monocytes (Bld) [#/Vol] 0.88 10*3/uL [facility] Monocytes/100 WBC (Bld) 7.1 % 2.0 - 10.0 % [facility] Neutrophils (Bld) [#/Vol] 7.93 10*3/uL High [facility] Comment on above: Percent differential counts (%) should be interpreted in the context of the absolute cell counts (cells/uL). Neutrophils/100 WBC (Bld) 64.4 % 40.0 - 80.0 % [facility] Nucleated RBC/100 WBC (Bld) [Ratio] 0 % [facility] Platelets (Bld) [#/Vol] 339 10*3/uL [facility] RBC (Bld) [#/Vol] 4.45 10*6/uL [facility] WBC (Bld) [#/Vol] 12.3 10*3/uL [facility] Basophils (Bld) [#/Vol] 0.02 x10*3/uL Normal 0.00-0.10 [facility] Comment on above: Performed By: #### 5 7021-8 #### SANTOSH BAI ([id number]) [facility] ([facility]) [address] [place] [id number] Basophils/100 WBC (Bld) 0.2 % Normal 0.0-2.0 [facility] Comment on above: Performed By: #### 5 7021-8 #### SANTOSH BAI ([id number]) [facility] ([facility]) [address] [place] [address] Eosinophils (Bld) [#/Vol] 0.32 x10*3/uL Normal 0.00-0.70 [facility] Comment on above: Performed By: #### 5 7021-8 #### SANTOSH BAI ([id number]) [facility] ([facility]) [address] [place] [address] Eosinophils/100 WBC (Bld) 2.6 % Normal 0.0-6.0 [facility] Comment on above: Performed By: #### 5 7021-8 #### SANTOSH BAI ([id number]) [facility] ([facility]) [address] [place] [address] Erythrocyte distribution width (RBC) [Ratio] 13.2 % Normal 11.5-14.5 [facility] Comment on above: Performed By: #### 5 7021-8 #### SANTOSH BAI ([id number]) [facility] ([facility]) [address] [place] [address] Hematocrit (Bld) [Volume fraction] 41.3 % Normal 36.0-46.0 [facility] Comment on above: Performed By: #### 5 7021-8 #### SANTOSH BAI ([id number]) [facility] ([facility]) [address] [place] [id number] Hemoglobin (Bld) [Mass/Vol] 13.6 g/dL Normal 12.0-16.0 [facility] Comment on above: Performed By: #### 5 7021-8 #### SANTOSH BAI ([id number]) [facility] ([facility]) [address] [place] [id number] Immature granulocytes (Bld) [#/Vol] 0.08 x10*3/uL Normal 0.00-0.70 [facility] Comment on above: Performed By: #### 5 7021-8 #### SANTOSH BAI ([id number]) [facility] ([facility]) [address] [place] [id number] Immature granulocytes/100 WBC (Bld) 0.6 % Normal 0.0-0.9 [facility] Comment on above: Result Comment: Aspen ture Granulocyte Count (IG) includes promyelocytes, myelocytes and metamyelocytes but does not include bands. Percent differential counts (%) should be interpreted in the context of the absolute cell counts (cells/UL). Performed By: #### 5 7021-8 #### SANTOSH BAI ([id number]) [facility] ([facility]) [address] [place] [address] Lymphocytes (Bld) [#/Vol] 3.09 x10*3/uL Normal 1.20-4.80 [facility] Comment on above: Performed By: #### 5 7021-8 #### SANTOSH BAI ([id number]) [facility] ([facility]) [address] [place] [id number] Lymphocytes/100 WBC (Bld) 25.1 % Normal 13.0-44.0 [facility] Comment on above: Performed By: #### 5 7021-8 #### SANTOSH BAI ([id number]) [facility] ([facility]) [address] [place] [id number] MCH (RBC) [Entitic mass] 30.6 pg Normal 26.0-34.0 [facility] Comment on above: Performed By: #### 5 7021-8 #### SANTOSH BAI ([id number]) [facility] ([facility]) [address] [place] [address] MCHC (RBC) [Mass/Vol] 32.9 g/dL Normal 32.0-36.0 [facility] Comment on above: Performed By: #### 5 7021-8 #### SANTOSH BAI ([id number]) [facility] ([facility]) [address] [place] [address] MCV (RBC) [Entitic vol] 93 fL Normal 80-100 [facility] Comment on above: Performed By: #### 5 7021-8 #### SANTOSH BAI ([id number]) [facility] ([facility]) [address] [place] [address] Monocytes (Bld) [#/Vol] 0.88 x10*3/uL Normal 0.10-1.00 [facility] Comment on above: Performed By: #### 5 7021-8 #### SANTOSH BAI ([id number]) [facility] ([facility]) [address] [place] [address] Monocytes/100 WBC (Bld) 7.1 % Normal 2.0-10.0 [facility] Comment on above: Performed By: #### 5 7021-8 #### SANTOSH BAI ([id number]) [facility] ([facility]) [address] [place] [address] Neutrophils (Bld) [#/Vol] 7.93 x10*3/uL High 1.20-7.70 [facility] Comment on above: Result Comment: Perc ent differential counts (%) should be interpreted in the context of the absolute cell counts (cells/uL). Performed By: #### 5 7021-8 #### SANTOSH BAI ([id number]) [facility] ([facility]) [address] [place] [address] Neutrophils/100 WBC (Bld) 64.4 % Normal 40.0-80.0 [facility] Comment on above: Performed By: #### 5 7021-8 #### SANTOSH BAI ([id number]) [facility] ([facility]) [address] [place] [address] Nucleated RBC/100 WBC (Bld) [Ratio] 0.0 /100 WBCs Normal 0.0-0.0 [facility] Comment on above: Performed By: #### 5 7021-8 #### SANTOSH BAI ([id number]) [facility] ([facility]) [address] [place] [address] Platelets (Bld) [#/Vol] 339 x10*3/uL Normal 150-450 [facility] Comment on above: Performed By: #### 5 7021-8 #### SANTOSH BAI ([id number]) [facility] ([facility]) [address] [place] [address] RBC (Bld) [#/Vol] 4.45 x10*6/uL Normal 4.00-5.20 [facility] Comment on above: Performed By: #### 5 7021-8 #### SANTOSH BAI ([id number]) [facility] ([facility]) [address] [place] [id number] WBC (Bld) [#/Vol] 12.3 x10*3/uL High 4.4-11.3 [facility] Comment on above: Performed By: #### 5 7021-8 #### SANTOSH BAI ([id number]) [facility] ([facility]) [address] [place] [id number] Comprehensive metabolic 2000 panelon 01-06-2024 Albumin BCP dye [Mass/Vol] 3.7 g/dL 3.4 - 5.0 g/dL [facility] ALP [Catalytic activity/Vol] 94 U/L 33 - 110 U/L [facility] ALT With P-5'-P [Catalytic activity/Vol] 14 U/L 7 - 45 U/L [facility] Comment on above: Patients treated wit h Sulfasalazine may generate falsely decreased results for ALT. Anion gap [Moles/Vol] 10 mmol/L 10 - 2 0 mmol/L [facility] AST With P-5'-P [Catalytic activity/Vol] 17 U/L 9 - 39 U/L [facility] Comment on above: MILD HEMOLYSIS DETEC LISA. The result may be falsely elevated due to hemolysis or other interferents. Clinical correlation is recommended. Repeat testing may be considered. Bilirubin [Mass/Vol] 0.2 mg/dL 0.0 - 1 .2 mg/dL [facility] Calcium [Mass/Vol] 7.9 mg/dL Low 8.6 - 10. 3 mg/dL [facility] Chloride [Moles/Vol] 98 mmol/L 98 - 10 7 mmol/L [facility] CO2 [Moles/Vol] 31 mmol/L 21 - 32 mmol/L [facility] Creatinine [Mass/Vol] 0.78 mg/dL 0.50 - 1.05 mg/dL [facility] eGFR - PINF [facility] Comment on above: Calculations of juan antonio mated GFR are performed using the 2020 CKD-EPI Study Refit equation without the race variable for the IDMS-Traceable creatinine methods. https://jasn.asnjournals.org/content//ASN.07612 48855 Glucose [Mass/Vol] 124 mg/dL High 74 - 99 mg/dL [facility] Interpretation and review of laboratory results Abnormal [facility] Potassium [Moles/Vol] 3.8 mmol/L 3.5 - 5.3 mmol/L [facility] Comment on above: MILD HEMOLYSIS DETEC LISA. The result may be falsely elevated due to hemolysis or other interferents. Clinical correlation is recommended. Repeat testing may be considered. Protein [Mass/Vol] 6.6 g/dL 6.4 - 8.2 g/dL [facility] Sodium [Moles/Vol] 135 mmol/L Low 136 - 145 mmol/L [facility] Urea nitrogen [Mass/Vol] 17 mg/dL 6 - 23 mg/dL [facility] Albumin BCP dye [Mass/Vol] 3.7 g/dL Normal 3.4-5.0 [facility] Comment on above: Performed By: #### 5 7021-8 #### SANTOSH BIA ([id number]) [facility] ([facility]) [address] [place] [address] ALP [Catalytic activity/Vol] 94 U/L Normal 33-110 [facility] Comment on above: Performed By: #### 5 7021-8 #### SANTOSH BAI ([id number]) [facility] ([facility]) [address] [place] [address] ALT With P-5'-P [Catalytic activity/Vol] 14 U/L Normal 7-45 [facility] Comment on above: Result Comment: Katia ents treated with Sulfasalazine may generate falsely decreased results for ALT. Performed By: #### 5 7021-8 #### SANTOSH BAI ([id number]) [facility] ([facility]) [address] [place] [address] Anion gap [Moles/Vol] 10 mmol/L Normal 10-20 [facility] Comment on above: Performed By: #### 5 7021-8 #### SANTOSH BAI ([id number]) [facility] ([facility]) [address] [place] [address] AST With P-5'-P [Catalytic activity/Vol] 17 U/L Normal 9-39 [facility] Comment on above: Result Comment: MILD HEMOLYSIS DETECTED. The result may be falsely elevated due to hemolysis or other interferents. Clinical correlation is recommended. Repeat testing may be considered. Performed By: #### 5 7021-8 #### SANTOSH BAI ([id number]) [facility] ([facility]) [address] [place] [address] Bilirubin [Mass/Vol] 0.2 mg/dL Normal 0.0-1.2 [facility] Comment on above: Performed By: #### 5 7021-8 #### SANTOSH BAI ([id number]) [facility] ([facility]) [address] [place] [address] Calcium [Mass/Vol] 7.9 mg/dL Low 8.6-10.3 [facility] Comment on above: Performed By: #### 5 7021-8 #### SANTOSH BAI ([id number]) [facility] ([facility]) [address] [place] [address] Chloride [Moles/Vol] 98 mmol/L Normal 98-107 [facility] Comment on above: Performed By: #### 5 7021-8 #### SANTOSH BAI ([id number]) [facility] ([facility]) [address] [place] [address] CO2 [Moles/Vol] 31 mmol/L Normal 21-32 [facility] Comment on above: Performed By: #### 5 7021-8 #### SANTOSH BAI ([id number]) [facility] ([facility]) [address] [place] [address] Creatinine [Mass/Vol] 0.78 mg/dL Normal 0.50-1.05 [facility] Comment on above: Performed By: #### 5 7021-8 #### SANTOSH BAI ([id number]) [facility] ([facility]) [address] [place] [address] GFR/1.73 sq M.predicted MDRD (S/P/Bld) [Vol rate/Area] mL/min/{1.73_m2} Normal >60 [facility] Comment on above: Result Comment: Calc ulations of estimated GFR are performed using the 2020 CKD-EPI Study Refit equation without the race variable for the IDMS-Traceable creatinine methods. https://jasn.asnjournals.org/content/early//ASN.59233 78127 Performed By: #### 5 7021-8 #### SANTOSH BAI ([id number]) [facility] ([facility]) [address] [place] [address] Glucose [Mass/Vol] 124 mg/dL High 74-99 [facility] Comment on above: Performed By: #### 5 7021-8 #### SANTOSH BAI ([id number]) [facility] ([facility]) [address] [place] [address] Potassium [Moles/Vol] 3.8 mmol/L Normal 3.5-5.3 [facility] Comment on above: Result Comment: MILD HEMOLYSIS DETECTED. The result may be falsely elevated due to hemolysis or other interferents. Clinical correlation is recommended. Repeat testing may be considered. Performed By: #### 5 7021-8 #### SANTOSH BAI ([id number]) [facility] ([facility]) [address] [place] [address] Protein [Mass/Vol] 6.6 g/dL Normal 6.4-8.2 [facility] Comment on above: Performed By: #### 5 7021-8 #### SANTOSH BAI ([id number]) [facility] ([facility]) [address] [place] [address] Sodium [Moles/Vol] 135 mmol/L Low 136-145 [facility] Comment on above: Performed By: #### 5 7021-8 #### SANTOSH BAI ([id number]) [facility] ([facility]) [address] [place] [address] Urea nitrogen [Mass/Vol] 17 mg/dL Normal 6-23 [facility] Comment on above: Performed By: #### 5 7021-8 #### SANTOSH RICHARDSON ([id number]) [facility] ([facility]) [address] [place] [address] ED Clinical Summaryon 2023 ED Clinical Summary ED Clinical Summary [address] [address] ED Clinical Summary Person Information Name: JERAD TRACY [facility] Age: 48 Years : 1975 Sex: Female Language: Cambodian PCP: Cheyanne Rincon Marital Status: Visit Id: Visit Reason: Leg pain-swelling; Throat foreign body; WEAKNESS Speciality: Acuity: 3 Enc Type: Emergency Med Service: Emergency Arrival: 01/06/2024 11:35:28 Discharge: 01/06/2024 13:12:20 LOS: 000 01:37 Checkin: 01/06/2024 11:35:28 Checkout: 01/06/2024 13:12:20 Dispo Type: Home (Routine DC) EVENTS: Event Name Event Status Request Date/Time Start Date/Time Complete Date/Time Arrive Complete 01/06/2024 11:35:28 01/06/2024 11:35:28 01/06/2024 11:35:28 Document Home Meds Request 01/06/2024 11:35:28 Triage Complete 01/06/2024 11:35:28 01/06/2024 11:47:57 01/06/2024 11:47:57 Registration Complete 01/06/2024 11:40:25 01/06/2024 11:40:25 01/06/2024 11:40:25 Reg Complete Request 01/06/2024 11:40:25 Reg Bed Request Complete 01/06/2024 11:40:25 01/06/2024 11:40:25 01/06/2024 11:40:25 Bed Assign Complete 01/06/2024 11:41:44 01/06/2024 11:41:44 01/06/2024 11:41:44 Dr Exam Complete 01/06/2024 11:41:44 01/06/2024 11:42:01 01/06/2024 11:42:01 RN Exam Complete 01/06/2024 11:41:44 01/06/2024 12:01:41 01/06/2024 12:01:41 Registration Request 01/06/2024 11:42:01 Dr Exam Complete 01/06/2024 11:45:02 01/06/2024 11:45:02 01/06/2024 11:45:02 Meds Admin Complete 01/06/2024 12:13:50 01/06/2024 12:18:09 X-Ray Complete 01/06/2024 12:13:50 01/06/2024 12:33:54 01/06/2024 12:46:09 Wet Read Complete 01/06/2024 12:46:09 01/06/2024 13:09:19 01/06/2024 13:09:19 Discharge Complete 01/06/2024 13:06:05 01/06/2024 13:12:35 01/06/2024 13:12:35 Transfer Complete 01/06/2024 13:12:35 01/06/2024 13:12:35 01/06/2024 13:12:35 ADDRESS: [address] [place] [id number] [facility] DOC NOTES: MEDICAL INFORMATION: Prescriptions Given: Medications to Continue with No Changes Other Medications cyclobenzaprine (cyclobenzaprine 10 mg Tab) 1 Tablets By Mouth 3 times a day as needed for spasm. Refills: 0. dicyclomine (Bentyl 10 mg Cap) 2 Capsules By Mouth 4 times a day. Refills: 0. diflunisal (diflunisal 500 mg Tab) [...] and 12 hours off daily. Refills: 0. ondansetron (Zofran 4 mg Tab) 1 Tablets By Mouth every 6 hours as needed Nausea. Take one tab by mouth every six hours as needed for nausea. Refills: 0. PATIENT EDUCATION INFORMATION: Instructions: Lumbosacral Radiculopathy Follow up: With: Address: When: Cheyanne Rosas [address], [address], [place] [id number] Business (1) In 3 days 01/09/2024 DIAGNOSIS: Lumbar radiculopathy; Pharyngitis Normal [facility] ED Patient Summaryon 024 ED Patient Summary ED Patient Summary [address] [address] Patient Discharge Instructions Person Information Name: JERAD TRACY Age: 48 Years Arrival Date: 01/06/2024 11:35:28 Discharge Diagnosis: Lumbar radiculopathy; Pharyngitis Primary Care Physician: Cheyanne Rincon Provider Information Primary Provider: Jorge Mcintosh DO [employer] Kitchen:Robert Taylor PA-C The exam and treatment you received in the Emergency Department were for an urgent problem and are not intended as complete care. It is important that you follow up with a doctor, nurse practitioner, or physician?s insurance administrative assistant for ongoing care. If your symptoms [...] Follow-up Instructions: With: Address: When: Cheyanne Rosas [address], [address], [address] [address] Business (1) In 3 days 01/09/2024 In the event that this physician does not participate in your insurance network, please consult with your insurance company to find a nearby participating provider. Patient Education Materials: Lumbosacral Radiculopathy A MESSAGE TO ALL PATIENTS REGARDING OPIOIDS PRESCRIPTION OPIOIDS: WHAT YOU NEED TO KNOW Prescription opioids can be used to help relieve wzwxkmbo-pl-ccbrkz pain and are often prescribed following a [...] from the Food and Drug Administration (www.fda.gov/Drugs/Reso debbiecesForYou). ? Visit www.cdc.gov/drugoverdos e to learn about the risks of opioids abuse and overdose. ? If you believe you may be struggling with addiction, tell your health resident care provider and ask for guidance or call [facility] (more content not included)... Normal [facility] XR Neck Soft Tissueon 2023 XR Neck Soft Tissue Exam Date/Time: 01/06/2024 12:46 EDT Reason for Exam: Sore throat (pharyngitis) Report IMPRESSION: ESSENTIALLY NEGATIVE SOFT TISSUE NECK EXAM. EXAM: XR Neck Soft Tissue DATE: 01/06/2024 12:33 PM CLINICAL HISTORY: Sore throat (pharyngitis). COMPARISON: Cervical spine CT 08/15/2023. TECHNIQUE: AP and lateral views of the neck were obtained. FINDINGS: There are no radiodense foreign bodies identified. The hypopharynx, epiglottis, glottic region, and subglottic trachea appear normal. There is no prevertebral retropharyngeal soft tissue swelling. The visualized paranasal sinuses are clear. Mild to moderate degenerative changes of the lower cervical spine are again noted. Ordering Provider: Robert Taylor FINAL REPORT Dictated: 01/06/2024 3:09 pm Terrance Hendrickson MD Signed (Electronic Signature): 01/06/2024 3:09 pm Signed by: Terrance Hendrickson MD Transcribed by: KIERRA Technologist: CAMILLE Technical Comments Radiation Dose: Ka,r in mGy = na DAP = na Normal [facility] Basic metabolic 2000 panelon 01-04-2024 Anion gap [Moles/Vol] 13 mmol/L 10 - 2 0 mmol/L [facility] Calcium [Mass/Vol] 8.3 mg/dL Low 8.6 - 10. 3 mg/dL [facility] Chloride [Moles/Vol] 101 mmol/L 98 - 10 7 mmol/L [facility] CO2 [Moles/Vol] 25 mmol/L 21 - 32 mmol/L [facility] Creatinine [Mass/Vol] 0.62 mg/dL 0.50 - 1.05 mg/dL [facility] eGFR - PINF [facility] Comment on above: Calculations of juan antonio mated GFR are performed using the 2020 CKD-EPI Study Refit equation without the race variable for the IDMS-Traceable creatinine methods. https://jasn.asnjournals.org/content//ASN.24215 33659 Glucose [Mass/Vol] 187 mg/dL High 74 - 99 mg/dL [facility] Interpretation and review of laboratory results Abnormal [facility] Potassium [Moles/Vol] 4.2 mmol/L 3.5 - 5.3 mmol/L [facility] Sodium [Moles/Vol] 135 mmol/L Low 136 - 145 mmol/L [facility] Urea nitrogen [Mass/Vol] 15 mg/dL 6 - 23 mg/dL [facility] Anion gap [Moles/Vol] 13 mmol/L Normal 10-20 [facility] Comment on above: Performed By: #### 5 7021-8 #### SANTOSH BAI ([id number]) [facility] ([facility]) [address] [place] [address] Calcium [Mass/Vol] 8.3 mg/dL Low 8.6-10.3 [facility] Comment on above: Performed By: #### 5 7021-8 #### SANTOSH BAI ([id number]) [facility] ([facility]) [address] [place] [address] Chloride [Moles/Vol] 101 mmol/L Normal 98-107 [facility] Comment on above: Performed By: #### 5 7021-8 #### SANTOSH BAI ([id number]) [facility] ([facility]) [address] [place] [address] CO2 [Moles/Vol] 25 mmol/L Normal 21-32 [facility] Comment on above: Performed By: #### 5 7021-8 #### SANTOSH BAI ([id number]) [facility] ([facility]) [address] [place] [address] Creatinine [Mass/Vol] 0.62 mg/dL Normal 0.50-1.05 [facility] Comment on above: Performed By: #### 5 7021-8 #### SANTOSH BAI ([id number]) [facility] ([facility]) [address] [place] [address] GFR/1.73 sq M.predicted MDRD (S/P/Bld) [Vol rate/Area] mL/min/{1.73_m2} Normal >60 [facility] Comment on above: Result Comment: Calc ulations of estimated GFR are performed using the 2020 CKD-EPI Study Refit equation without the race variable for the IDMS-Traceable creatinine methods. https://jasn.asnjournals.org/content/early//ASN.70859 33726 Performed By: #### 5 7021-8 #### SANTOSH BAI ([id number]) [facility] ([facility]) [address] [place] [address] Glucose [Mass/Vol] 187 mg/dL High 74-99 [facility] Comment on above: Performed By: #### 5 7021-8 #### SANTOSH BAI ([id number]) [facility] ([facility]) [address] [place] [address] Potassium [Moles/Vol] 4.2 mmol/L Normal 3.5-5.3 [facility] Comment on above: Performed By: #### 5 7021-8 #### SANTOSH BAI ([id number]) [facility] ([facility]) [address] [place] [address] Sodium [Moles/Vol] 135 mmol/L Low 136-145 [facility] Comment on above: Performed By: #### 5 7021-8 #### SANTOSH BAI ([id number]) [facility] ([facility]) [address] [place] [address] Urea nitrogen [Mass/Vol] 15 mg/dL Normal 6-23 [facility] Comment on above: Performed By: #### 5 7021-8 #### SANTOSH BAI ([id number]) [facility] ([facility]) [address] [place] [address] CBC panel Auto (Bld)on 01-03 Erythrocyte distribution width (RBC) [Ratio] 13.2 % 11.5 - 14.5 % [facility] Hematocrit (Bld) [Volume fraction] 41.9 % 36.0 - 46.0 % [facility] Hemoglobin (Bld) [Mass/Vol] 13.3 g/dL 12.0 - 16.0 g/dL [facility] Interpretation and review of laboratory results Abnormal [facility] MCH (RBC) [Entitic mass] 30.4 pg 26.0 - 34.0 pg [facility] MCHC (RBC) [Mass/Vol] 31.7 g/dL Low 32.0 - 36.0 g/dL [facility] MCV (RBC) [Entitic vol] 96 fL 80 - 100 fL [facility] Nucleated RBC/100 WBC (Bld) [Ratio] 0.0 % [facility] Platelets (Bld) [#/Vol] 320 10*3/uL [facility] RBC (Bld) [#/Vol] 4.38 10*6/uL [facility] WBC (Bld) [#/Vol] 12.2 10*3/uL High [facility] Erythrocyte distribution width (RBC) [Ratio] 13.2 % Normal 11.5-14.5 [facility] Comment on above: Performed By: #### 5 7021-8 #### SANTOSH BIA ([id number]) [facility] ([facility]) [address] [place] [address] Hematocrit (Bld) [Volume fraction] 41.9 % Normal 36.0-46.0 [facility] Comment on above: Performed By: #### 5 7021-8 #### SANTOSH BAI ([id number]) [facility] ([facility]) [address] [place] [address] Hemoglobin (Bld) [Mass/Vol] 13.3 g/dL Normal 12.0-16.0 [facility] Comment on above: Performed By: #### 5 7021-8 #### SANTOSH BAI ([id number]) [facility] ([facility]) [address] [place] [id number] MCH (RBC) [Entitic mass] 30.4 pg Normal 26.0-34.0 [facility] Comment on above: Performed By: #### 5 7021-8 #### SANTOSH BAI ([id number]) [facility] ([facility]) [address] [place] [address] MCHC (RBC) [Mass/Vol] 31.7 g/dL Low 32.0-36.0 [facility] Comment on above: Performed By: #### 5 7021-8 #### SANTOSH BAI ([id number]) [facility] ([facility]) [address] [place] [id number] MCV (RBC) [Entitic vol] 96 fL Normal 80-100 [facility] Comment on above: Performed By: #### 5 7021-8 #### SANTOSH BAI ([id number]) [facility] ([facility]) [address] [place] [address] Nucleated RBC/100 WBC (Bld) [Ratio] 0.0 /100 WBCs Normal 0.0-0.0 [facility] Comment on above: Performed By: #### 5 7021-8 #### SANTOSH BAI ([id number]) [facility] ([facility]) [address] [place] [address] Platelets (Bld) [#/Vol] 320 x10*3/uL Normal 150-450 [facility] Comment on above: Performed By: #### 5 7021-8 #### SANTOSH BAI ([id number]) [facility] ([facility]) [address] [place] [id number] RBC (Bld) [#/Vol] 4.38 x10*6/uL Normal 4.00-5.20 [facility] Comment on above: Performed By: #### 5 7021-8 #### SANTOSH BAI ([id number]) [facility] ([facility]) [address] [place] [address] WBC (Bld) [#/Vol] 12.2 x10*3/uL High 4.4-11.3 [facility] Comment on above: Performed By: #### 5 7021-8 #### SANTOSH BAI ([id number]) [facility] ([facility]) [address] [place] [address] Basic metabolic 2000 panelon 01-03-2024 Anion gap [Moles/Vol] 13 mmol/L 10 - 2 0 mmol/L [facility] Calcium [Mass/Vol] 8.2 mg/dL Low 8.6 - 10. 3 mg/dL [facility] Chloride [Moles/Vol] 104 mmol/L 98 - 10 7 mmol/L [facility] CO2 [Moles/Vol] 23 mmol/L 21 - 32 mmol/L [facility] Creatinine [Mass/Vol] 0.55 mg/dL 0.50 - 1.05 mg/dL [facility] eGFR - PINF [facility] Comment on above: Calculations of juan antonio mated GFR are performed using the 2020 CKD-EPI Study Refit equation without the race variable for the IDMS-Traceable creatinine methods. https://jasn.asnjournals.org/content//ASN.57359 81454 Glucose [Mass/Vol] 131 mg/dL High 74 - 99 mg/dL [facility] Interpretation and review of laboratory results Abnormal [facility] Potassium [Moles/Vol] 4.1 mmol/L 3.5 - 5.3 mmol/L [facility] Sodium [Moles/Vol] 136 mmol/L 136 - 145 mmol/L [facility] Urea nitrogen [Mass/Vol] 13 mg/dL 6 - 23 mg/dL [facility] Anion gap [Moles/Vol] 13 mmol/L Normal 10-20 [facility] Comment on above: Performed By: #### 5 7021-8 #### SANTOSH BAI ([id number]) [facility] ([facility]) [address] [place] [address] Calcium [Mass/Vol] 8.2 mg/dL Low 8.6-10.3 [facility] Comment on above: Performed By: #### 5 7021-8 #### SANTOSH BAI ([id number]) [facility] ([facility]) [address] [place] [address] Chloride [Moles/Vol] 104 mmol/L Normal 98-107 [facility] Comment on above: Performed By: #### 5 7021-8 #### SANTOSH BAI ([id number]) [facility] ([facility]) [address] [place] [address] CO2 [Moles/Vol] 23 mmol/L Normal 21-32 [facility] Comment on above: Performed By: #### 5 7021-8 #### SANTOSH BAI ([id number]) [facility] ([facility]) [address] [place] [address] Creatinine [Mass/Vol] 0.55 mg/dL Normal 0.50-1.05 [facility] Comment on above: Performed By: #### 5 7021-8 #### SANTOSH BAI ([id number]) [facility] ([facility]) [address] [place] [address] GFR/1.73 sq M.predicted MDRD (S/P/Bld) [Vol rate/Area] mL/min/{1.73_m2} Normal >60 [facility] Comment on above: Result Comment: Calc ulations of estimated GFR are performed using the 2020 CKD-EPI Study Refit equation without the race variable for the IDMS-Traceable creatinine methods. https://jasn.asnjournals.org/content//ASN.17149 69690 Performed By: #### 5 7021-8 #### SANTOSH BAI ([id number]) [facility] ([facility]) [address] [place] [address] Glucose [Mass/Vol] 131 mg/dL High 74-99 [facility] Comment on above: Performed By: #### 5 7021-8 #### SANTOSH BAI ([id number]) [facility] ([facility]) [address] [place] [address] Potassium [Moles/Vol] 4.1 mmol/L Normal 3.5-5.3 [facility] Comment on above: Performed By: #### 5 7021-8 #### SANTOSH BAI ([id number]) [facility] ([facility]) [address] [place] [address] Sodium [Moles/Vol] 136 mmol/L Normal 136-145 [facility] Comment on above: Performed By: #### 5 7021-8 #### SANTOSH BAI ([id number]) [facility] ([facility]) [address] [place] [address] Urea nitrogen [Mass/Vol] 13 mg/dL Normal 6-23 [facility] Comment on above: Performed By: #### 5 7021-8 #### SANTOSH BAI ([id number]) [facility] ([facility]) [address] [place] [address] Basic metabolic 2000 panelon 01-02-2024 Anion gap [Moles/Vol] 12 mmol/L 10 - 2 0 mmol/L [facility] Calcium [Mass/Vol] 8.5 mg/dL Low 8.6 - 10. 3 mg/dL [facility] Chloride [Moles/Vol] 104 mmol/L 98 - 10 7 mmol/L [facility] CO2 [Moles/Vol] 24 mmol/L 21 - 32 mmol/L [facility] Creatinine [Mass/Vol] 0.58 mg/dL 0.50 - 1.05 mg/dL [facility] eGFR - PINF [facility] [facility] Comment on above: Calculations of juan antonio mated GFR are performed using the 2020 CKD-EPI Study Refit equation without the race variable for the IDMS-Traceable creatinine methods. https://jasn.asnjournals.org/content/early//ASN.58728 24008 Glucose [Mass/Vol] 124 mg/dL High 74 - 99 mg/dL [facility] Interpretation and review of laboratory results Abnormal [facility] Potassium [Moles/Vol] 4.1 mmol/L 3.5 - 5.3 mmol/L [facility] Sodium [Moles/Vol] 136 mmol/L 136 - 145 mmol/L [facility] Urea nitrogen [Mass/Vol] 12 mg/dL 6 - 23 mg/dL [facility] Anion gap [Moles/Vol] 12 mmol/L Normal 10-20 [facility] Comment on above: Performed By: #### 5 7021-8 #### SANTOSH BAI ([id number]) [facility] ([facility]) [address] [place] [address] Calcium [Mass/Vol] 8.5 mg/dL Low 8.6-10.3 [facility] Comment on above: Performed By: #### 5 7021-8 #### SANTOSH BAI ([id number]) [facility] ([facility]) [address] [place] [address] Chloride [Moles/Vol] 104 mmol/L Normal 98-107 [facility] Comment on above: Performed By: #### 5 7021-8 #### SANTOSH BAI ([id number]) [facility] ([facility]) [address] [place] [address] CO2 [Moles/Vol] 24 mmol/L Normal 21-32 [facility] Comment on above: Performed By: #### 5 7021-8 #### SANTOSH BAI ([id number]) [facility] ([facility]) [address] [place] [address] Creatinine [Mass/Vol] 0.58 mg/dL Normal 0.50-1.05 [facility] Comment on above: Performed By: #### 5 7021-8 #### SANTOSH BAI ([id number]) [facility] ([facility]) [address] [place] [address] GFR/1.73 sq M.predicted MDRD (S/P/Bld) [Vol rate/Area] mL/min/{1.73_m2} Normal >60 [facility] Comment on above: Result Comment: Calc ulations of estimated GFR are performed using the 2020 CKD-EPI Study Refit equation without the race variable for the IDMS-Traceable creatinine methods. https://jasn.asnjournals.org/content//ASN.98337 60534 Performed By: #### 5 7021-8 #### SANTOSH BAI ([id number]) [facility] ([facility]) [address] [place] [address] Glucose [Mass/Vol] 124 mg/dL High 74-99 [facility] Comment on above: Performed By: #### 5 7021-8 #### SANTOSH BAI ([id number]) [facility] ([facility]) [address] [place] [address] Potassium [Moles/Vol] 4.1 mmol/L Normal 3.5-5.3 [facility] Comment on above: Performed By: #### 5 7021-8 #### SANTOSH BAI ([id number]) [facility] ([facility]) [address] [place] [address] Sodium [Moles/Vol] 136 mmol/L Normal 136-145 [facility] Comment on above: Performed By: #### 5 7021-8 #### SANTOSH BAI ([id number]) [facility] ([facility]) [address] [place] [address] Urea nitrogen [Mass/Vol] 12 mg/dL Normal 6-23 [facility] Comment on above: Performed By: #### 5 7021-8 #### SANTOSH BAI ([id number]) [facility] ([facility]) [address] [place] [address] CBC panel Auto (Bld)on 01-01 Erythrocyte distribution width (RBC) [Ratio] 13.3 % 11.5 - 14.5 % [facility] Hematocrit (Bld) [Volume fraction] 41.6 % 36.0 - 46.0 % [facility] Hemoglobin (Bld) [Mass/Vol] 13.0 g/dL 12.0 - 16.0 g/dL [facility] Interpretation and review of laboratory results Abnormal [facility] MCH (RBC) [Entitic mass] 30.0 pg 26.0 - 34.0 pg [facility] MCHC (RBC) [Mass/Vol] 31.3 g/dL Low 32.0 - 36.0 g/dL [facility] MCV (RBC) [Entitic vol] 96 fL 80 - 100 fL [facility] Nucleated RBC/100 WBC (Bld) [Ratio] 0.0 % [facility] Platelets (Bld) [#/Vol] 268 10*3/uL [facility] RBC (Bld) [#/Vol] 4.34 10*6/uL [facility] WBC (Bld) [#/Vol] 9.7 10*3/uL [facility] Erythrocyte distribution width (RBC) [Ratio] 13.3 % Normal 11.5-14.5 [facility] Comment on above: Performed By: #### 5 7021-8 #### SANTOSH BAI ([id number]) [facility] ([facility]) [address] [place] [address] Hematocrit (Bld) [Volume fraction] 41.6 % Normal 36.0-46.0 [facility] Comment on above: Performed By: #### 5 7021-8 #### SANTOSH BAI ([id number]) [facility] ([facility]) [address] [place] [address] Hemoglobin (Bld) [Mass/Vol] 13.0 g/dL Normal 12.0-16.0 [facility] Comment on above: Performed By: #### 5 7021-8 #### SANTOSH BAI ([id number]) [facility] ([facility]) [address] [place] [address] MCH (RBC) [Entitic mass] 30.0 pg Normal 26.0-34.0 [facility] Comment on above: Performed By: #### 5 7021-8 #### SANTOSH BAI ([id number]) [facility] ([facility]) [address] [place] [address] MCHC (RBC) [Mass/Vol] 31.3 g/dL Low 32.0-36.0 [facility] Comment on above: Performed By: #### 5 7021-8 #### SANTOSH BAI ([id number]) [facility] ([facility]) [address] [place] [id number] MCV (RBC) [Entitic vol] 96 fL Normal 80-100 [facility] Comment on above: Performed By: #### 5 7021-8 #### SANTOSH BAI ([id number]) [facility] ([facility]) [address] [place] [id number] Nucleated RBC/100 WBC (Bld) [Ratio] 0.0 /100 WBCs Normal 0.0-0.0 [facility] Comment on above: Performed By: #### 5 7021-8 #### SANTOSH BAI ([id number]) [facility] ([facility]) [address] [place] [address] Platelets (Bld) [#/Vol] 268 x10*3/uL Normal 150-450 [facility] Comment on above: Performed By: #### 5 7021-8 #### SANTOSH BAI ([id number]) [facility] ([facility]) [address] [place] [address] RBC (Bld) [#/Vol] 4.34 x10*6/uL Normal 4.00-5.20 [facility] Comment on above: Performed By: #### 5 7021-8 #### SANTOSH BAI ([id number]) [facility] ([facility]) [address] [place] [address] WBC (Bld) [#/Vol] 9.7 x10*3/uL Normal 4.4-11.3 [facility] Comment on above: Performed By: #### 5 7021-8 #### SANTOSH BAI ([id number]) [facility] ([facility]) [address] [place] [id number] XR LUMBAR SPINE 4+ VIEWS WIT H FLEXION EXTENSIONon 01-02-2024 XR LUMBAR SPINE 4+ VIEWS WITH FLEXION EXTENSION Interpreted By: Danielle Orozco, STUDY: XR LUMBAR SPINE 4+ VIEWS WITH FLEXION EXTENSION; 01/02/2024 8:59 am INDICATION: Signs/Symptoms:L4-L5 lumbar stenosis with concern for spondylolisthesis. COMPARISON: None. ACCESSION NUMBER(S): [id number] ORDERING CLINICIAN: ANGELA GONZALEZ FINDINGS: Multiple views of the lumbar spine are obtained. Alignment is intact. The vertebral body heights are preserved. Disc space loss at L4/L5 with endplate sclerosis and osteophytes . No acute fracture-dislocation. IMPRESSION: Discogenic degenerative changes as described. Signed by: Danielle Orozco 01/02/2024 9:15 AM Dictation workstation: [id number] [facility] XR Lumbar spine Views W flex ion and W extensionon 01-02-2024 Discogenic degenerat alexandre changes as described. Signed by: Danielle Orozco 01/02/2024 9:15 AM Dictation workstation: [id number] MMODAL Interpreted By: Danielle Carey, STUDY: XR LUMBAR SPINE 4+ VIEWS WITH FLEXION EXTENSION; 01/02/2024 8:59 am INDICATION: Signs/Symptoms:L4-L5 lumbar stenosis with concern for spondylolisthesis. COMPARISON: None. ACCESSION NUMBER(S): [id number] ORDERING CLINICIAN: ANGELA GONZALEZ FINDINGS: Multiple views of the lumbar spine are obtained. Alignment is intact. The vertebral body heights are preserved. Disc space loss at L4/L5 with endplate sclerosis and osteophytes . No acute fracture-dislocation. MMODAL Danielle Orozco MD - 01/02/2024 Interpreted By: Danielle Orozco, STUDY: XR LUMBAR SPINE 4+ VIEWS WITH FLEXION EXTENSION; 01/02/2024 8:59 am INDICATION: Signs/Symptoms:L4-L5 lumbar stenosis with concern for spondylolisthesis. COMPARISON: None. ACCESSION NUMBER(S): [id number] ORDERING CLINICIAN: ANGELA GONZALEZ FINDINGS: Multiple views of the lumbar spine are obtained. Alignment is intact. The vertebral body heights are preserved. Disc space loss at L4/L5 with endplate sclerosis and osteophytes . No acute fracture-dislocation. IMPRESSION: Discogenic degenerative changes as described. Signed by: Danielle Orozco 01/02/2024 9:15 AM Dictation workstation: [id number] [facility] Work Phone: Radiology Study observation (narrative) [facility] Work Phone: XR Lumbar spine Views W flex ion and W extensionOrdered By: Danielle Orozco on 01-02-2024 [facility] Work Phone: C reactive proteinon 024 CRP [Mass/Vol] 0.36 mg/dL Normal <1.00 [facility] Comment on above: Performed By: #### 1 988-5 #### SANTOSH BAI ([id number]) [facility] ([facility]) [address] [place] [address] C-Reactive Proteinon 024 CRP [Mass/Vol] 0.36 mg/dL NINF - 1.00 mg/dL [facility] CBC W Auto Differential pane l (Bld)on 01-01-2024 Basophils (Bld) [#/Vol] 0.01 10*3/uL [facility] Basophils/100 WBC (Bld) 0.1 % 0.0 - 2.0 % [facility] Eosinophils (Bld) [#/Vol] 0.22 10*3/uL [facility] Eosinophils/100 WBC (Bld) 2.5 % 0.0 - 6.0 % [facility] Erythrocyte distribution width (RBC) [Ratio] 13.5 % 11.5 - 14.5 % [facility] Hematocrit (Bld) [Volume fraction] 42.0 % 36.0 - 46.0 % [facility] Hemoglobin (Bld) [Mass/Vol] 13.2 g/dL 12.0 - 16.0 g/dL [facility] Immature granulocytes (Bld) [#/Vol] 0.02 10*3/uL [facility] Immature granulocytes/100 WBC (Bld) 0.2 % 0.0 - 0.9 % [facility] Comment on above: Immature Granulocyte Count (IG) includes promyelocytes, myelocytes and metamyelocytes but does not include bands. Percent differential counts (%) should be interpreted in the context of the absolute cell counts (cells/UL). Interpretation and review of laboratory results Abnormal [facility] Lymphocytes (Bld) [#/Vol] 3.44 10*3/uL [facility] Lymphocytes/100 WBC (Bld) 38.9 % 13.0 - 44.0 % [facility] MCH (RBC) [Entitic mass] 30.2 pg 26.0 - 34.0 pg [facility] MCHC (RBC) [Mass/Vol] 31.4 g/dL Low 32.0 - 36.0 g/dL [facility] MCV (RBC) [Entitic vol] 96 fL 80 - 100 fL [facility] Monocytes (Bld) [#/Vol] 0.75 10*3/uL [facility] Monocytes/100 WBC (Bld) 8.5 % 2.0 - 10.0 % [facility] Neutrophils (Bld) [#/Vol] 4.41 10*3/uL [facility] Comment on above: Percent differential counts (%) should be interpreted in the context of the absolute cell counts (cells/uL). Neutrophils/100 WBC (Bld) 49.8 % 40.0 - 80.0 % [facility] Nucleated RBC/100 WBC (Bld) [Ratio] 0.0 % [facility] Platelets (Bld) [#/Vol] 317 10*3/uL [facility] RBC (Bld) [#/Vol] 4.37 10*6/uL [facility] WBC (Bld) [#/Vol] 8.9 10*3/uL [facility] Basophils (Bld) [#/Vol] 0.01 x10*3/uL Normal 0.00-0.10 [facility] Comment on above: Performed By: #### 5 7021-8 #### SANTOSH RICHARDSON ([id number]) [facility] ([facility]) [address] [place] [address] Basophils/100 WBC (Bld) 0.1 % Normal 0.0-2.0 [facility] Comment on above: Performed By: #### 5 7021-8 #### SANTOSH BAI ([id number]) [facility] ([facility]) [address] [place] [address] Eosinophils (Bld) [#/Vol] 0.22 x10*3/uL Normal 0.00-0.70 [facility] Comment on above: Performed By: #### 5 7021-8 #### SANTOSH BAI ([id number]) [facility] ([facility]) [address] [place] [address] Eosinophils/100 WBC (Bld) 2.5 % Normal 0.0-6.0 [facility] Comment on above: Performed By: #### 5 7021-8 #### SANTOSH BAI ([id number]) [facility] ([facility]) [address] [place] [address] Erythrocyte distribution width (RBC) [Ratio] 13.5 % Normal 11.5-14.5 [facility] Comment on above: Performed By: #### 5 7021-8 #### SANTOSH BAI ([id number]) [facility] ([facility]) [address] [place] [id number] Hematocrit (Bld) [Volume fraction] 42.0 % Normal 36.0-46.0 [facility] Comment on above: Performed By: #### 5 7021-8 #### SANTOSH BAI ([id number]) [facility] ([facility]) [address] [place] [address] Hemoglobin (Bld) [Mass/Vol] 13.2 g/dL Normal 12.0-16.0 [facility] Comment on above: Performed By: #### 5 7021-8 #### SANTOSH BAI ([id number]) [facility] ([facility]) [address] [place] [address] Immature granulocytes (Bld) [#/Vol] 0.02 x10*3/uL Normal 0.00-0.70 [facility] Comment on above: Performed By: #### 5 7021-8 #### SANTOSH BAI ([id number]) [facility] ([facility]) [address] [place] [address] Immature granulocytes/100 WBC (Bld) 0.2 % Normal 0.0-0.9 [facility] Comment on above: Result Comment: Aspen ture Granulocyte Count (IG) includes promyelocytes, myelocytes and metamyelocytes but does not include bands. Percent differential counts (%) should be interpreted in the context of the absolute cell counts (cells/UL). Performed By: #### 5 7021-8 #### SANTOSH BAI ([id number]) [facility] ([facility]) [address] [place] [address] Lymphocytes (Bld) [#/Vol] 3.44 x10*3/uL Normal 1.20-4.80 [facility] Comment on above: Performed By: #### 5 7021-8 #### SANTOSH BAI ([id number]) [facility] ([facility]) [address] [place] [id number] Lymphocytes/100 WBC (Bld) 38.9 % Normal 13.0-44.0 [facility] Comment on above: Performed By: #### 5 7021-8 #### SANTOSH BAI ([id number]) [facility] ([facility]) [address] [place] [address] MCH (RBC) [Entitic mass] 30.2 pg Normal 26.0-34.0 [facility] Comment on above: Performed By: #### 5 7021-8 #### SANTOSH BAI ([id number]) [facility] ([facility]) [address] [place] [address] MCHC (RBC) [Mass/Vol] 31.4 g/dL Low 32.0-36.0 [facility] Comment on above: Performed By: #### 5 7021-8 #### SANTOHS BAI ([id number]) [facility] ([facility]) [address] [place] [address] MCV (RBC) [Entitic vol] 96 fL Normal 80-100 [facility] Comment on above: Performed By: #### 5 7021-8 #### SANTOSH BAI ([id number]) [facility] ([facility]) [address] [place] [address] Monocytes (Bld) [#/Vol] 0.75 x10*3/uL Normal 0.10-1.00 [facility] Comment on above: Performed By: #### 5 7021-8 #### SANTOSH BAI ([id number]) [facility] ([facility]) [address] [place] [address] Monocytes/100 WBC (Bld) 8.5 % Normal 2.0-10.0 [facility] Comment on above: Performed By: #### 5 7021-8 #### SANTOSH BAI ([id number]) [facility] ([facility]) [address] [place] [address] Neutrophils (Bld) [#/Vol] 4.41 x10*3/uL Normal 1.20-7.70 [facility] Comment on above: Result Comment: Perc ent differential counts (%) should be interpreted in the context of the absolute cell counts (cells/uL). Performed By: #### 5 7021-8 #### SANTOSH BAI ([id number]) [facility] ([facility]) [address] [place] [address] Neutrophils/100 WBC (Bld) 49.8 % Normal 40.0-80.0 [facility] Comment on above: Performed By: #### 5 7021-8 #### SANTOSH BAI ([id number]) [facility] ([facility]) [address] [place] [address] Nucleated RBC/100 WBC (Bld) [Ratio] 0.0 /100 WBCs Normal 0.0-0.0 [facility] Comment on above: Performed By: #### 5 7021-8 #### SANTOSH BAI ([id number]) [facility] ([facility]) [address] [place] [address] Platelets (Bld) [#/Vol] 317 x10*3/uL Normal 150-450 [facility] Comment on above: Performed By: #### 5 7021-8 #### SANTOSH BAI ([id number]) [facility] ([facility]) [address] [place] [address] RBC (Bld) [#/Vol] 4.37 x10*6/uL Normal 4.00-5.20 [facility] Comment on above: Performed By: #### 5 7021-8 #### SANTOSH BAI ([id number]) [facility] ([facility]) [address] [place] [address] WBC (Bld) [#/Vol] 8.9 x10*3/uL Normal 4.4-11.3 [facility] Comment on above: Performed By: #### 5 7021-8 #### SANTOSH BAI ([id number]) [facility] ([facility]) [address] [place] [address] CRP [Mass/Vol]on 01-01-2024 Interpretation and review of laboratory results Normal [facility] Comprehensive metabolic 2000 panelon 01-01-2024 Albumin BCP dye [Mass/Vol] 4.1 g/dL 3.4 - 5.0 g/dL [facility] ALP [Catalytic activity/Vol] 75 U/L 33 - 110 U/L [facility] ALT With P-5'-P [Catalytic activity/Vol] 19 U/L 7 - 45 U/L [facility] Comment on above: Patients treated wit h Sulfasalazine may generate falsely decreased results for ALT. Anion gap [Moles/Vol] 13 mmol/L 10 - 2 0 mmol/L [facility] AST With P-5'-P [Catalytic activity/Vol] 25 U/L 9 - 39 U/L [facility] Comment on above: MILD HEMOLYSIS DETEC LISA. The result may be falsely elevated due to hemolysis or other interferents. Clinical correlation is recommended. Repeat testing may be considered. Bilirubin [Mass/Vol] 0.2 mg/dL 0.0 - 1 .2 mg/dL [facility] Calcium [Mass/Vol] 8.2 mg/dL Low 8.6 - 10. 3 mg/dL [facility] Chloride [Moles/Vol] 106 mmol/L 98 - 10 7 mmol/L [facility] CO2 [Moles/Vol] 25 mmol/L 21 - 32 mmol/L [facility] Creatinine [Mass/Vol] 0.71 mg/dL 0.50 - 1.05 mg/dL [facility] eGFR - PINF [facility] Comment on above: Calculations of juan antonio mated GFR are performed using the 2020 CKD-EPI Study Refit equation without the race variable for the IDMS-Traceable creatinine methods. https://jasn.asnjournals.org/content/early//ASN.86323 34294 Glucose [Mass/Vol] 101 mg/dL High 74 - 99 mg/dL [facility] Interpretation and review of laboratory results Abnormal [facility] Potassium [Moles/Vol] 4.8 mmol/L 3.5 - 5.3 mmol/L [facility] Comment on above: MILD HEMOLYSIS DETEC LISA. The result may be falsely elevated due to hemolysis or other interferents. Clinical correlation is recommended. Repeat testing may be considered. Protein [Mass/Vol] 6.8 g/dL 6.4 - 8.2 g/dL [facility] Sodium [Moles/Vol] 139 mmol/L 136 - 145 mmol/L [facility] Urea nitrogen [Mass/Vol] 20 mg/dL 6 - 23 mg/dL [facility] Albumin BCP dye [Mass/Vol] 4.1 g/dL Normal 3.4-5.0 [facility] Comment on above: Performed By: #### 5 7021-8 #### SANTOSH BAI ([id number]) [facility] ([facility]) [address] [place] [address] ALP [Catalytic activity/Vol] 75 U/L Normal 33-110 [facility] Comment on above: Performed By: #### 5 7021-8 #### SANTOSH BAI ([id number]) [facility] ([facility]) [address] [place] [address] ALT With P-5'-P [Catalytic activity/Vol] 19 U/L Normal 7-45 [facility] Comment on above: Result Comment: Katia ents treated with Sulfasalazine may generate falsely decreased results for ALT. Performed By: #### 5 7021-8 #### SANTOSH BAI ([id number]) [facility] ([facility]) [address] [place] [address] Anion gap [Moles/Vol] 13 mmol/L Normal 10-20 [facility] Comment on above: Performed By: #### 5 7021-8 #### SANTOSH BAI ([id number]) [facility] ([facility]) [address] [place] [id number] AST With P-5'-P [Catalytic activity/Vol] 25 U/L Normal 9-39 [facility] Comment on above: Result Comment: MILD HEMOLYSIS DETECTED. The result may be falsely elevated due to hemolysis or other interferents. Clinical correlation is recommended. Repeat testing may be considered. Performed By: #### 5 7021-8 #### SANTOSH BAI ([id number]) [facility] ([facility]) [address] [place] [address] Bilirubin [Mass/Vol] 0.2 mg/dL Normal 0.0-1.2 [facility] Comment on above: Performed By: #### 5 7021-8 #### SANTOSH BAI ([id number]) [facility] ([facility]) [address] [place] [address] Calcium [Mass/Vol] 8.2 mg/dL Low 8.6-10.3 [facility] Comment on above: Performed By: #### 5 7021-8 #### SANTOSH BAI ([id number]) [facility] ([facility]) [address] [place] [address] Chloride [Moles/Vol] 106 mmol/L Normal 98-107 [facility] Comment on above: Performed By: #### 5 7021-8 #### SANTOSH BAI ([id number]) [facility] ([facility]) [address] [place] [address] CO2 [Moles/Vol] 25 mmol/L Normal 21-32 [facility] Comment on above: Performed By: #### 5 7021-8 #### SANTOSH BAI ([id number]) [facility] ([facility]) [address] [place] [address] Creatinine [Mass/Vol] 0.71 mg/dL Normal 0.50-1.05 [facility] Comment on above: Performed By: #### 5 7021-8 #### SANTOSH BAI ([id number]) [facility] ([facility]) [address] [place] [address] GFR/1.73 sq M.predicted MDRD (S/P/Bld) [Vol rate/Area] mL/min/{1.73_m2} Normal >60 [facility] Comment on above: Result Comment: Calc ulations of estimated GFR are performed using the 2020 CKD-EPI Study Refit equation without the race variable for the IDMS-Traceable creatinine methods. https://jasn.asnjournals.org/content/early/ASN.64843 60199 Performed By: #### 5 7021-8 #### SANTOSH BAI ([id number]) [facility] ([facility]) [address] [place] [address] Glucose [Mass/Vol] 101 mg/dL High 74-99 [facility] Comment on above: Performed By: #### 5 7021-8 #### SANTOSH BAI ([id number]) [facility] ([facility]) [address] [place] [address] Potassium [Moles/Vol] 4.8 mmol/L Normal 3.5-5.3 [facility] Comment on above: Result Comment: MILD HEMOLYSIS DETECTED. The result may be falsely elevated due to hemolysis or other interferents. Clinical correlation is recommended. Repeat testing may be considered. Performed By: #### 5 7021-8 #### SANTOSH BAI ([id number]) [facility] ([facility]) [address] [place] [address] Protein [Mass/Vol] 6.8 g/dL Normal 6.4-8.2 [facility] Comment on above: Performed By: #### 5 7021-8 #### SANTOSH BAI ([id number]) [facility] ([facility]) [address] [place] [address] Sodium [Moles/Vol] 139 mmol/L Normal 136-145 [facility] Comment on above: Performed By: #### 5 7021-8 #### SANTOSH BAI ([id number]) [facility] ([facility]) [address] [place] [address] Urea nitrogen [Mass/Vol] 20 mg/dL Normal 6-23 [facility] Comment on above: Performed By: #### 5 7021-8 #### SANTOSH BAI ([id number]) [facility] ([facility]) [address] [place] [address] ESR Westergren method (Bld) [Velocity]on 01-01-2024 ESR (Bld) [Velocity] 17 mm/h 0 - 20 mm/h [facility] Interpretation and review of laboratory results Normal [facility] ESR (Bld) [Velocity] 17 mm/h Normal 0-20 [facility] Comment on above: Performed By: #### 4 537-7 #### SANTOSH BAI ([id number]) [facility] ([facility]) [address] [place] [address] MR LUMBAR SPINE W AND WO IV CONTRASTon 01-01-2024 MR LUMBAR SPINE W AND WO IV CONTRAST Interpreted By: Claudio Balderas, STUDY: MR LUMBAR SPINE W AND WO IV CONTRAST INDICATION: Signs/Symptoms:Paresthe teo and weakness of the left lower extremity COMPARISON: Lumbar spine MRI 12/18/2023 ACCESSION NUMBER(S): [id number] ORDERING CLINICIAN: MICHELE LION TECHNIQUE: Multiplanar multisequence MRI of the lumbar spine was performed before and after the administration of intravenous contrast, according to standard protocol. FINDINGS: ALIGNMENT: The alignment is normal. VERTEBRAE: The vertebral bodies are normal in height. There is no fracture or aggressive osseous lesion. Modic type 2 endplate degenerative change at L4-5. no abnormal enhancement. DISCS: Disc desiccation and mild disc height loss at L4-5. Disc desiccation at L5-S1 with overall preserved height. Remaining discs are maintained. CONUS MEDULLARIS AND CAUDA EQUINA: The conus medullaris terminates at L2. Crowding of the cauda equina nerve roots at L4-5 secondary to degenerative change detailed further below. Remaining cauda equina nerve roots are unremarkable. PARAVERTEBRAL SOFT TISSUES AND VISUALIZED RETROPERITONEUM: The visualized paravertebral soft tissues appear within normal limits. Edema within the midline upper superficial soft tissues of the lower back again noted. No focal fluid collection. No abnormal enhancement. EVALUATION OF INDIVIDUAL LEVELS: L1-2: No disc herniation spinal canal or neuroforaminal stenosis. L2-3: No disc herniation spinal canal or neuroforaminal stenosis. L3-4: No disc herniation spinal canal or neuroforaminal stenosis. L4-5: Disc bulge with superimposed left paracentral disc protrusion, facet hypertrophy, and infolding of ligamentum flavum results in moderate narrowing of the spinal canal and effacement of left subarticular recess with possible contact of the traversing left L5 nerve root. There is moderate bilateral foraminal stenosis. Canal stenosis appears slightly progressed from previous MRI. L5-S1: Disc bulge asymmetric to the right with facet hypertrophy results in moderate right and mild left foraminal stenosis. Spinal canal remains patent. LIMITED EVALUATION OF UPPER SACRUM AND SACROILIAC JOINTS: Mild degenerative changes of the sacroiliac joints. IMPRESSION: Moderate canal stenosis at L4-5 secondary to disc bulge with crowding of the cauda equina nerve roots, slightly progressed from previous MRI 12/18/2023. Left paracentral disc protrusion at this level likely contacts the traversing left L5 nerve root. No abnormal enhancement. Signed by: Claudio Balderas 01/01/2024 5:46 PM Dictation workstation: [id number] [facility] Comment on above: Order Comment: Eulalio alvarez MRI completed on December 19. I spoke with neurosurgery Dr. Adams and she indicated if there is any weakness we need another MRI. Patient was seen both by myself and attending and there is concern not only for the paresthesia but weakness. MR Lumbar spine WO and W con trast Karen 01-01-2024 Interpreted By: Claudio Kellogg, STUDY: MR LUMBAR SPINE W AND WO IV CONTRAST INDICATION: Signs/Symptoms:Paresthe teo and weakness of the left lower extremity COMPARISON: Lumbar spine MRI 12/18/2023 ACCESSION NUMBER(S): [id number] ORDERING CLINICIAN: MICHELE LION TECHNIQUE: Multiplanar multisequence MRI of the lumbar spine was performed before and after the administration of intravenous contrast, according to standard protocol. FINDINGS: ALIGNMENT: The alignment is normal. VERTEBRAE: The vertebral bodies are normal in height. There is no fracture or aggressive osseous lesion. Modic type 2 endplate degenerative change at L4-5. no abnormal enhancement. DISCS: Disc desiccation and mild disc height loss at L4-5. Disc desiccation at L5-S1 with overall preserved height. Remaining discs are maintained. CONUS MEDULLARIS AND CAUDA EQUINA: The conus medullaris terminates at L2. Crowding of the cauda equina nerve roots at L4-5 secondary to degenerative change detailed further below. Remaining cauda equina nerve roots are unremarkable. PARAVERTEBRAL SOFT TISSUES AND VISUALIZED RETROPERITONEUM: The visualized paravertebral soft tissues appear within normal limits. Edema within the midline upper superficial soft tissues of the lower back again noted. No focal fluid collection. No abnormal enhancement. EVALUATION OF INDIVIDUAL LEVELS: L1-2: No disc herniation spinal canal or neuroforaminal stenosis. L2-3: No disc herniation spinal canal or neuroforaminal stenosis. L3-4: No disc herniation spinal canal or neuroforaminal stenosis. L4-5: Disc bulge with superimposed left paracentral disc protrusion, facet hypertrophy, and infolding of ligamentum flavum results in moderate narrowing of the spinal canal and effacement of left subarticular recess with possible contact of the traversing left L5 nerve root. There is moderate bilateral foraminal stenosis. Canal stenosis appears slightly progressed from previous MRI. L5-S1: Disc bulge asymmetric to the right with facet hypertrophy results in moderate right and mild left foraminal stenosis. Spinal canal remains patent. LIMITED EVALUATION OF UPPER SACRUM AND SACROILIAC JOINTS: Mild degenerative changes of the sacroiliac joints. [facility] Claudio Balderas MD - 01/01/2024 Interpreted By: Claudio Balderas, STUDY: MR LUMBAR SPINE W AND WO IV CONTRAST INDICATION: Signs/Symptoms:Paresthe teo and weakness of the left lower extremity COMPARISON: Lumbar spine MRI 12/18/2023 ACCESSION NUMBER(S): [id number] ORDERING CLINICIAN: MICHELE LION TECHNIQUE: Multiplanar multisequence MRI of the lumbar spine was performed before and after the administration of intravenous contrast, according to standard protocol. FINDINGS: ALIGNMENT: The alignment is normal. VERTEBRAE: The vertebral bodies are normal in height. There is no fracture or aggressive osseous lesion. Modic type 2 endplate degenerative change at L4-5. no abnormal enhancement. DISCS: Disc desiccation and mild disc height loss at L4-5. Disc desiccation at L5-S1 with overall preserved height. Remaining discs are maintained. CONUS MEDULLARIS AND CAUDA EQUINA: The conus medullaris terminates at L2. Crowding of the cauda equina nerve roots at L4-5 secondary to degenerative change detailed further below. Remaining cauda equina nerve roots are unremarkable. PARAVERTEBRAL SOFT TISSUES AND VISUALIZED RETROPERITONEUM: The visualized paravertebral soft tissues appear within normal limits. Edema within the midline upper superficial soft tissues of the lower back again noted. No focal fluid collection. No abnormal enhancement. EVALUATION OF INDIVIDUAL LEVELS: L1-2: No disc herniation spinal canal or neuroforaminal stenosis. L2-3: No disc herniation spinal canal or neuroforaminal stenosis. L3-4: No disc herniation spinal canal or neuroforaminal stenosis. L4-5: Disc bulge with superimposed left paracentral disc protrusion, facet hypertrophy, and infolding of ligamentum flavum results in moderate narrowing of the spinal canal and effacement of left subarticular recess with possible contact of the traversing left L5 nerve root. There is moderate bilateral foraminal stenosis. Canal stenosis appears slightly progressed from previous MRI. L5-S1: Disc bulge asymmetric to the right with facet hypertrophy results in moderate right and mild left foraminal stenosis. Spinal canal remains patent. LIMITED EVALUATION OF UPPER SACRUM AND SACROILIAC JOINTS: Mild degenerative changes of the sacroiliac joints. IMPRESSION: Moderate canal stenosis at L4-5 secondary to disc bulge with crowding of the cauda equina nerve roots, slightly progressed from previous MRI 12/18/2023. Left paracentral disc protrusion at this level likely contacts the traversing left L5 nerve root. No abnormal enhancement. Signed by: Claudio Balderas 01/01/2024 5:46 PM Dictation workstation: [id number] [facility] Work Phone: Radiology Study observation (narrative) [facility] Work Phone: MR Lumbar spine WO and W con trast IVOrdered By: Claudio Balderas on 01-01-2024 [facility] Work Phone: No Panel Informationon 12-31 [facility] ED Prov Noteon 12-29-2023 ED Prov Note ED PROVIDER NOTE [facility] EMERGENCY [facility] NAME: Jerad Tracy AGE: 48 y.o. : 1975 VISIT DATE: 12/29/2023 CSN: [id number] PCP: No, Physician Chief Complaint Patient presents with Back Pain Patient presents to ED for evaluation of low back pain. States she was visiting her son and tripped over a dog. She did not fall but states I twisted and tweaked my back when I turned to the left side to avoid falling on the dog . She denies any numbness and tingling bowel bladder incontinence. Her pain is worse with range of motion. There is no radiation of her pain. Patient does have a history of back issues, follows with certified technician specialist in her hometown [facility]. History reviewed. No pertinent past medical history. History reviewed. No pertinent surgical history. History reviewed. No pertinent family history. Social History Socioeconomic History Marital status: Legally Tobacco Use Smoking status: Every Day Current packs/day: 0.50 Average packs/day: 0.5 packs/day for 30.0 years (15.0 ttl pk-yrs) Types: Cigarettes Start date: 12/28/1993 Smokeless tobacco: Never Substance and Sexual Activity Alcohol use: Never Drug use: Never Social Determinants of Health Financial Resource Strain: Low Risk (11/17/2023) Received from [facility] Overall Financial Resource Strain (CARDIA) Difficulty of Paying Living Expenses: Not hard at all Food Insecurity: Patient Declined (10/11/2023) Received from [facility] Hunger Vital Sign Worried About Running Out of Food in the Last Year: Patient declined Ran Out of Food in the Last Year: Patient declined Transportation Needs: No Transportation Needs (11/17/2023) Received from [facility] PRAPARE - Transportation Lack of Transportation (Medical): No Lack of Transportation (Non-Medical): No Physical Activity: Patient Declined (10/11/2023) Received from [facility] Exercise Vital Sign Days of Exercise per Week: Patient declined Minutes of Exercise per Session: Patient declined Stress: Patient Declined (10/11/2023) Received from [facility] [place] [employer] - Occupational Stress Questionnaire Feeling of Stress : Patient declined Social Connections: Patient Declined (10/11/2023) Received from [facility] Social Connection and Isolation Panel [NHANES] Frequency of Communication with Friends and Family: Patient declined Frequency of Social Gatherings with Friends and Family: Patient declined Attends Druze Services: Patient declined Active Member of Clubs or Organizations: Patient declined Attends Club or Organization Meetings: Patient declined Marital Status: Patient declined Housing Stability: Low Risk (11/17/2023) Received from [facility] Housing Stability Vital Sign Unable to Pay for Housing in the Last Year: No Number of Times Moved in the Last Year: 1 Homeless in the Last Year: No Previous Medications Medication Sig FLUoxetine (PROZAC) 20 MG capsule Take 3 (three) capsules (60 mg total) by mouth daily . ibuprofen (ADVIL,MOTRIN) 800 MG tablet Take 1 (one) tablet (800 mg total) by mouth every 6 (six) hours as needed for pain . Allergies Allergen Reactions Hydrocodone Hives Penicillins Unknown Tylenol [Acetaminophen] Liver Failure Review of Systems Constitutional: Negative. Respiratory: Negative. Cardiovascular: Negative. Musculoskeletal: Positive for back pain. Negative for gait problem and neck pain. Skin: Negative. Patient Vitals for the past 24 hrs: BP Temp Pulse Resp SpO2 Weight 12/29/23 1345 (!) 151/96 -- -- -- 95 % -- 12/29/23 1328 (!) 149/95 98 degrees F (36.7 degrees C) 97 16 95 % 113.4 kg (250 lb) Physical Exam Constitutional: Appearance: She is obese. Cardiovascular: Rate and Rhythm: Normal rate and regular rhythm. Pulses: Normal pulses. Heart sounds: Normal heart sounds. Musculoskeletal: General: Tenderness (Across the lumbar region left more so than right) present. Normal range of motion. Cervical back: Normal range of motion and neck supple. No tenderness. Comments: Neurovascularly intact. M AE x 4. Gait intact. Bilateral pedal pulses present and palpable. Pulmonary: Effort: Pulmonary effort is normal. Breath sounds: Normal breath sounds. Skin: General: Skin is warm and dry. Capillary Refill: Capillary refill takes less than 2 seconds. Neurological: General: No focal deficit present. Mental Status: She is alert and oriented to person, place, and time. Laboratory & Radiographic Imaging (if done): No results found for this visit on 12/29/23. No orders to display Procedures Medical Decision Making Upon examination, patient sitting up in bed, no distress noted. Alert and oriented answering questions appropriately. Patien (more content not included)... Normal [facility] ED Note-Physicianon 12-27-19 ED Note-Physician ED Note-Physician Basic Information Time Seen: Manuel Naik PA-C 12/26/2023 21:11 Chief Complaint pt has hx of back pain and was moving stuff today and now c/o lower back pain now. denies falling. sees pain management in a few weeks to get started on contract History of Present Illness Patient is a 48-year-old female that presents today for evaluation of acute on chronic back pain. She states that she had back surgery a couple of weeks ago and had been doing fine up until today. She states that she was feeling really well and decided to try and help her family member move some heavy boxes and felt her back give out. She noted immediate onset of back pain similar to when she had preoperatively. She denies any radicular symptoms. She denies any saddle anesthesia, loss of bowel or bladder control, lower extremity weakness. She is scheduled to see pain management to talk about getting on a contract due to her chronic pain. She states that she tried to call the neurosurgeons office this afternoon but is unable to get into them until Saturday. She has been taking OTC ibuprofen without any relief. Review of Systems No other aggravating or relieving factors no other associated symptoms no other prior treatments or complaints. Family: Reviewed and noncontributory Social: lives at home Review of systems negative unless otherwise specified in the HPI. Physical Exam Vitals & Measurements T: 36.8 ?C(Oral) HR: 108(Peripheral) RR: 18 BP: 140/85 SpO2: 98% HT: 160.0 cm WT: 114.8 kg BMI: 44.84 Vital Signs reviewed and noted. General: Alert, no acute distress, patient resting comfortably Skin: warm, intact, no pallor noted Head: Normocephalic, atraumatic Eye: Normal conjunctiva Cardiac: Normal peripheral perfusion Respiratory: No acute distress Musculoskeletal: No deformity, full ROM. Lumbar spine: Clean dry incision noted to the midline lumbar spine. There is no focal tenderness to palpation throughout the lumbar spine. There is paraspinal musculature tenderness noted with some spasming of the soft tissues. Negative straight leg raise. No step-off or crepitus appreciated. Intact strength and sensation to bilateral lower extremities. Neurological: alert and oriented, normal sensory and motor observed. Psychiatric: Cooperative Medical Decision Making Patient is a 48-year-old female that presents today for evaluation of her acute on chronic back pain. She had surgery a couple weeks ago and has been doing fine up until today when she tried to move some heavy boxes with a family member. Denies any concerning signs or symptoms for cauda equina syndrome. No radicular symptoms. On exam the patient is afebrile nontoxic-appearing. She does have a clean dry incision noted to the midline lumbar spine. There is paraspinal muscular tenderness noted bilaterally with some spasming of the soft tissues. Negative straight leg raise. Intact strength and sensation of bilateral lower extremities. We discussed that she likely aggravated her back after moving these hard boxes. We will provide her with a dose of Toradol IM here in the ED as well as provide her with tizanidine and oxycodone as needed for breakthrough pain given she just had a surgery. She is instructed to follow-up with her neurosurgeon for further evaluation and management of this. Return to ED precautions were reviewed with the patient at length. Assessment/Plan Low back pain (M54.50: Low back pain, unspecified) Lumbar strain (S39.012A: Strain of muscle, fascia and tendon of lower back, initial encounter) S/P lumbar spine operation (Z98.890: Other specified postprocedural states) Orders: ketorolac, 30 mg = 1 mL, Injection, IntraMuscular, Once, Stop date 12/26/23 22:08:00 EDT, STAT, Start date 12/26/23 22:08:00 EDT, 12/26/23 22:08:00 EDT oxycodone, 5 mg = 1 tab(s), Tab, Oral, Once, Stop date 12/26/23 22:08:00 EDT, STAT, Start date 12/26/23 22:08:00 EDT, 12/26/23 22:08:00 EDT oxycodone, 5 mg = 1 cap(s), Oral, q6hr, PRN for pain, X 3 day(s), # 10 cap(s), Refills(s) 0, Pharmacy: [id number], 160, cm, 12/26/23 18:17:00 EDT, Height/Length Dosing, 114.8, kg, 12/26/23 18:17:00 EDT, Weight Dosing tizanidine, 2 mg = 1 tab(s), Oral, q8hr, X 7 day(s), # 21 tab(s), Refills(s) 0, Pharmacy: [id number], 160, cm, 12/26/23 18:17:00 EDT, Height/Length Dosing, 114.8, kg, 12/26/23 18:17:00 EDT, Weight Dosing tizanidine, 2 mg = 0.5 tab(s), Tab, Oral, Once, Stop date 12/26/23 22:08:00 EDT, STAT, Start date 12/26/23 22:08:00 EDT, 12/26/23 22:08:00 EDT Disposition Plan Patient Discharge Condition Stable Discharge Disposition Home Discharge Prescription List Prescriptions oxyCODONE 5 mg Cap, 5 mg= 1 cap(s), Oral, q6hr, PRN tiZANidine 2 mg Tab, 2 mg= 1 tab(s), Oral, q8hr Follow-up With When Contact Information Cheyanne Rosas In 3 days 12/29/2023 EDT [address] [facility] [place] [id number] [facility] (1) Additional Instructions: Patient Educa (more content not included)... Normal [facility] Comment on above: Result Comment: Elec tronically Signed By: Manuel Naik PA-C\.br\Date and Time Signed: 12/26/23 22:19 EDT\.br\Electronically Co-Signed By: Elisa Sánchez DO\.br\Date and Time Co-Signed: 12/27/23 00:[address] Spine Lumbar w/o Contrast on 12-26-2023 CT Spine Lumbar w/o Contrast EXAM: CT Spine Lumbar w/o Contrast HISTORY: Fall, low back pain COMPARISON: CT lumbar spine 04/08/2023. TECHNIQUE: CT lumbar spine without contrast FINDINGS: Counting reference: Lumbosacral junction. For the purposes of this report, L4-5 is considered the level of the iliac crest and there are 5 lumbar-type vertebrae. Anatomic Variants: None. Alignment: Alignment is anatomic. Bone marrow / fracture: No evidence of a lytic or blastic process in the visualized spine. No evidence of acute or chronic fracture. Paraspinal soft tissues: Mild dependent soft tissue edema Canal and foramina: Moderate bilateral foraminal stenosis L4-L5; mild right foraminal stenosis L5-S1. Findings are similar to prior Sacrum and iliac wings: Sclerotic changes of the left SI joint, possibly post inflammatory (601:51). The presacral soft tissues are normal in appearance. IMPRESSION: Rxyg-dg-glxbvytg degenerative changes without any high-grade canal stenosis Final Dictated by: Griffin Garnett MD Dictated DT/TM: 12/26/23 12:15 Signed (Electronic Signature): Griffin Garnett MD 12/26/23 12:23 p Technologist: Oanh TRAN [facility] ED Clinical Summaryon 2023 ED Clinical Summary ED Clinical Summary [place] [id number] ED Clinical Summary Person Information Name: JERAD TRACY [facility] Age: 48 Years : 1975 Sex: Female Language: Cambodian PCP: Cheyanne Rincon Marital Status: Visit Id: Visit Reason: Back pain; LOWER BACK PAIN Speciality: Acuity: 4 Enc Type: Emergency Med Service: Emergency Arrival: 12/26/2023 18:03:46 Discharge: 12/26/2023 22:27:23 LOS: 000 04:24 Checkin: 12/26/2023 18:03:46 Checkout: 12/26/2023 22:27:23 Dispo Type: Home (Routine DC) EVENTS: Event Name Event Status Request Date/Time Start Date/Time Complete Date/Time Arrive Complete 12/26/2023 18:03:46 12/26/2023 18:03:46 12/26/2023 18:03:46 Document Home Meds Request 12/26/2023 18:03:46 Triage Complete 12/26/2023 18:03:46 12/26/2023 18:17:42 12/26/2023 18:17:42 Registration Complete 12/26/2023 18:10:05 12/26/2023 18:10:05 12/26/2023 18:10:05 Reg Complete Request 12/26/2023 18:10:05 Reg Bed Request Complete 12/26/2023 18:10:05 12/26/2023 18:10:05 12/26/2023 18:10:05 Bed Assign Complete 12/26/2023 21:09:52 12/26/2023 21:09:52 12/26/2023 21:09:52 Dr Exam Complete 12/26/2023 21:09:52 12/26/2023 21:11:00 12/26/2023 21:11:00 RN Exam Complete 12/26/2023 21:09:52 12/26/2023 21:26:26 12/26/2023 21:26:26 Registration Request 12/26/2023 21:11:00 Dr Exam Complete 12/26/2023 21:16:10 12/26/2023 21:16:10 12/26/2023 21:16:10 Meds Admin Complete 12/26/2023 22:10:17 12/26/2023 22:24:52 Discharge Complete 12/26/2023 22:12:12 12/26/2023 22:27:28 12/26/2023 22:27:28 Transfer Complete 12/26/2023 22:27:28 12/26/2023 22:27:28 12/26/2023 22:27:28 ADDRESS: [place] [id number] PHYS DOC NOTES: MEDICAL INFORMATION: Prescriptions Given: New Medications [facility], [address] [place] [id number], [phone] oxycodone (oxyCODONE 5 mg Cap) 1 Capsules By Mouth every 6 hours as needed for pain for 3 Days. Refills: 0. tizanidine (tiZANidine 2 mg Tab) 1 Tablets By Mouth every 8 hours for 7 Days. Refills: 0. Medications to Continue with No Changes Other Medications cyclobenzaprine (cyclobenzaprine 10 mg Tab) 1 Tablets By Mouth 3 times a day as needed for spasm. Refills: 0. dicyclomine (Bentyl 10 mg Cap) 2 Capsules By Mouth 4 times a day. Refills: 0. diflunisal (diflunisal 500 mg Tab) [...] and 12 hours off daily. Refills: 0. ondansetron (Zofran 4 mg Tab) 1 Tablets By Mouth every 6 hours as needed Nausea. Take one tab by mouth every six hours as needed for nausea. Refills: 0. PATIENT EDUCATION INFORMATION: Instructions: Acute Back Pain, Adult Follow up: With: Address: When: Cheyanne Post, [address], [address] [address] Business (1) In 3 days 12/29/2023 DIAGNOSIS: Low back pain; Lumbar strain; S/P lumbar spine operation Normal [facility] ED Clinical Summary [facility] Emergency Department [address] [place] [id number] ED Clinical Summary PERSON INFORMATION Name: JERAD TRACY Age: 48 Years Sex: FEMALE : 1975 MRN: Acct#: Visit Reason: Back pain; Fall; FALL-LOWER BACK PAIN Arrival: 12/26/2023 11:01:02 Discharge: 12/26/2023 12:37:00 LOS: 000 01:36 Check In: 12/26/2023 11:01:02 Checkout:12/26/2023 12:37:00 Address: [facility] [facility] [address] PCP: Cheyanne Mckeon PROVIDER INFORMATION Provider Role Assigned Unassigned Raj Ayers MD ED Provider 12/26/2023 11:01:53 Niki Reyes PALM GATHERER Nurse 12/26/2023 11:03:24 VITALS INFORMATION Vital Sign Triage Latest Temperature Tympanic Temperature Temporal Artery Pulse Rate 48 bpm 92 bpm O2 Sat 98 % 94 % Respiratory Rate 18 br/min 18 br/min Blood Pressure /87 mmHg /87 mmHg MEDICAL INFORMATION Medications Given: Medication Dose Route cyclobenzaprine 10 mg Oral oxyCODONE (oxyCODONE 5 mg oral tablet) 5 mg Oral Allergy Information: HYDROcodone; penicillin PHYSICIAN DOCUMENTATION DISCHARGE INFORMATION: Discharge Disposition: Home Discharge Location: Home PATIENT EDUCATION INFORMATION Instructions: Lumbar Sprain; Back Exercises, [id number] Follow-Up: With: Address: When: Cheyanne Mckeon [address] [facility] [place] [address] Within 3 to 5 days DIAGNOSIS: 1:Fall; 2:Lumbar sprain Patient Understands: Yes - Patient/family/caregive r verbalizes understanding of instructions given Comment: [facility] ED Note-Nursingon 12-26-2023 ED Note-Nursing Pt ambulatory back t o ED RM 8 C/O lower back pain. pt is rating the pain a 8/10. Pt slipped and fell in the shower this morning. Pt skin is all intact, no bruising. Pt has a HX of back issues, has problems with L4,L5 . Pt took to Motrin about two hours ago. Pt has a HX of hep c, can not have Tylenol. Pt is able to walk, move and sit will moving her lower back. Pt is A/Ox4 call light within reach [facility] ED Patient Summaryon 024 ED Patient Summary ED Patient Summary [address] [address] Patient Discharge Instructions Person Information Name: JERAD TRACY Age: 48 Years Arrival Date: 12/26/2023 18:03:46 Discharge Diagnosis: Low back pain; Lumbar strain; S/P lumbar spine operation Primary Care Physician: Cheyanne Rincon Provider Information Primary Provider: Elisa Sánchez DO [employer] Kitchen:Manuel Naik PA-C The exam and treatment you received in the Emergency Department were for an urgent problem and are not intended as complete care. It is important that you follow up with a doctor, nurse practitioner, or physician?s insurance administrative assistant for ongoing care. If your symptoms [...] Instructions: With: Address: When: Cheyanne Rosas [address] [facility], [address], [place] [id number] Business (1) In 3 days 12/29/2023 In the event that this physician does not participate in your insurance network, please consult with your insurance company to find a nearby participating provider. Patient Education Materials: Acute Back Pain, Adult A MESSAGE TO ALL PATIENTS REGARDING OPIOIDS PRESCRIPTION OPIOIDS: WHAT YOU NEED TO KNOW Prescription opioids can be used to help relieve hwulxiqn-rk-wqkmra pain and are often prescribed following a [...] be struggling with addiction, tell your health resident care provider and ask for (more content not included)... Normal [facility] ED Patient Summary [facility] - Emergency Department [address] [place] [address] PATIENT DISCHARGE INSTRUCTIONS Patient Information Name: JERAD TRACY Age: 48 Years Date of : 1975 [facility]: [id number] Reason For Visit: Back pain; Fall; FALL-LOWER BACK PAIN Arrival Time: 12/26/2023 11:01:02 Primary Care Physician: Cheyanne Mckeon Attending Physician: Raj Ayers MD Comment: Visit Diagnosis: Diagnoses This Visit Back pain ([id number]) Fall (W19.XXXA) Fall ([id number]) Lumbar sprain (S33.5XXA) The Pharmacy at [facility] is open Saturday through Saturday from [...] alcohol and/or drug addiction problems; contact the [facility] 15/10 Crisis Hotline -text 4hope to 741741. If you received any narcotics, sedation, or [...] sign any legal documents With: Address: When: Cheyanne Mckeon [address] [place] [address] [place] [address] Within 3 to 5 days Medication Information: The exam and treatment you received today in the [facility] Emergency Department were for an urgent problem and are not intended as complete care. It is important for you to follow up with a doctor, nurse practitioner, or physician?s insurance administrative assistant for ongoing care. If your symptoms [...] so we can reach you if necessary. [facility] Emergency Department has provided you with a complete list of medications post discharge. 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 Any specific questions regarding your chronic medications and dosages should be discussed with your primary care physician(s) and/or pharmacist. Additional medications on your home medication list not specifically addressed. Please contact the ordering physician if you have questions about these medications. cyclobenzaprine dicyclomine (dicyclomine 10 mg oral capsule) 1 cap(s) Oral (given by mouth) 4 times a day for 7 Days. docusate-senna (Stool Softener with Laxative 50 mg-8.6 mg oral tablet) FLUoxetine 60 Milligram Oral (given by mouth) every day. oxyCODONE (oxyCODONE 5 mg oral tablet) Visit Information Allergies: Substance Reaction Symptoms Type Comments HYDROcodone Drug penicillin Drug Vital Signs: Vitals and Measurements this Visit (last charted value for your 12/26/2023 visit) Vital Signs This Visit Temperature Oral: 36.9 DegC Peripheral Pulse Rate: 92 bpm Heart Rate Monitored: 99 bpm Respiratory Rate: 18 br/min Systolic Blood Pressure: 122 mmHg Diastolic Blood Pressure: 109 mmHg Mean Arterial Pressure, Cuff-Calculation: 113 mmHg Mean Arterial Pressure Cuff-Monitor: 156 mmHg SpO2: 94 % Oxygen Therapy: Room air Measurements This Visit Height/Length Measured: 160 cm Weight Measured: 113 kg Weight Dosin.000 kg Body Mass Index: 44.14 kg/m2 Problems List: Problem Onset Comments Tobacco user Patient Education Lumbar Sprain A lumbar sprain, which is sometimes called a low-back sprain, is a stretch or tear in the ligaments in the lower back (lumbar spine). Ligaments are the bands of tissue that connect bones to each other. This type of injury occurs when you stretch the ligaments beyond their limits. Lumbar sprains can range from mild to severe. Mild sprains may involve stretching a ligament without tearing it. These may heal in 1?2 weeks. More severe sprains involve tearin (more content not included)... Normal [facility] 12-24-2023 Anion gap [Moles/Vol] 8 mmol/L Normal 6-16 [facility] Comment on above: Performed By: #### 2 [id number] #### [facility] [address] [place] [address] Calcium [Mass/Vol] 8.6 mg/dL Low 8.9-11.1 [facility] Comment on above: Performed By: #### 2 [id number] #### [facility] [address] [place] [address] Chloride [Moles/Vol] 108 mmol/L Normal 101-111 [facility] Comment on above: Performed By: #### 2 [id number] #### [facility] [address] [place] [address] CO2 [Moles/Vol] 28 mmol/L Normal 21-31 [facility] Comment on above: Performed By: #### 2 [id number] #### [facility] [address] [place] [address] Creatinine [Mass/Vol] 0.7 mg/dL Normal 0.5-1.3 [facility] Comment on above: Performed By: #### 2 [id number] #### [facility] [address] [place] [address] Glucose [Mass/Vol] 85 mg/dL Normal 55-199 [facility] Comment on above: Performed By: #### 2 [id number] #### [facility] [address] [place] [address] Potassium [Moles/Vol] 4.2 mmol/L Normal 3.5-5.3 [facility] Comment on above: Performed By: #### 2 [id number] #### [facility] [address] [place] [address] Sodium [Moles/Vol] 140 mmol/L Normal 135-145 [facility] Comment on above: Performed By: #### 2 [id number] #### [facility] [address] [place] [address] Urea nitrogen [Mass/Vol] 7 mg/dL Normal 5-21 [facility] Comment on above: Performed By: #### 2 [id number] #### [facility] [address] [place] [address] Urea nitrogen/Creatinine [Mass ratio] 10 No Units Normal 10-20 [facility] Comment on above: Performed By: #### 2 [id number] #### [facility] [address] [place] [address] CBC w/ Auto Diffon 4 Basophils/100 WBC (Bld) 0.4 % Normal 0.0-2.0 [facility] Comment on above: Performed By: #### 2 [id number] #### [facility] [address] [place] [address] Basophils/Leukocytes Auto (Bld) [Pure # fraction] 0.0 E9/L Normal 0.0-0.2 [facility] Comment on above: Performed By: #### 2 [id number] #### [facility] [address] [place] [address] Eosinophils (Bld) [#/Vol] 0.1 E9/L Normal 0.0-0.5 [facility] Comment on above: Performed By: #### 2 [id number] #### [facility] [address] [place] [address] Eosinophils/100 WBC (Bld) 1.8 % Normal 0.0-8.0 [facility] Comment on above: Performed By: #### 2 [id number] #### [facility] [address] [place] [address] Erythrocyte distribution width (RBC) [Ratio] 13.6 % Normal 10.9-14.2 [facility] Comment on above: Performed By: #### 2 [id number] #### [facility] [address] [place] [address] Hematocrit (Bld) [Volume fraction] 39.1 % Normal 34.0-46.0 [facility] Comment on above: Performed By: #### 2 [id number] #### [facility] [address] [place] [address] Hemoglobin (Bld) [Mass/Vol] 13.6 g/dL Normal 12.0-16.0 [facility] Comment on above: Performed By: #### 2 [id number] #### [facility] [address] [place] [address] Lymphocytes (Bld) [#/Vol] 1.9 E9/L Normal 1.0-4.0 [facility] Comment on above: Performed By: #### 2 [id number] #### [facility] [address] [place] [address] Lymphocytes/100 WBC (Bld) 23.2 % Normal 14.0-50.0 [facility] Comment on above: Performed By: #### 2 923141 #### [facility] [address] [place] [address] MCH (RBC) [Entitic mass] 31.9 pg Normal 27.0-34.0 [facility] Comment on above: Performed By: #### 2 [id number] #### [facility] [address] [place] [address] MCHC (RBC) [Mass/Vol] 34.7 g/dL Normal 31.4-36.0 [facility] Comment on above: Performed By: #### 2 [id number] #### [facility] [address] [place] [address] MCV (RBC) [Entitic vol] 91.9 fL Normal 80.0-100.0 [facility] Comment on above: Performed By: #### 2 [id number] #### [facility] [address] [place] [address] Monocytes (Bld) [#/Vol] 0.5 E9/L Normal 0.2-1.0 [facility] Comment on above: Performed By: #### 2 [id number] #### [facility] [address] [place] [address] Neutrophils (Bld) [#/Vol] 5.5 E9/L Normal 2.0-7.5 [facility] Comment on above: Performed By: #### 2 [id number] #### [facility] [address] [place] [address] Neutrophils/100 WBC (Bld) 68.2 % Normal 36.0-75.0 [facility] Comment on above: Performed By: #### 2 [id number] #### [facility] [address] [place] [address] Platelet 359.0 E9/L Normal 150.0-500.0 [facility] Comment on above: Performed By: #### 2 [id number] #### [facility] [address] [place] [address] Platelet mean volume (Bld) [Entitic vol] 7.9 fL Normal 6.4-10.8 [facility] Comment on above: Performed By: #### 2 [id number] #### [facility] [address] [place] [address] RBC (Bld) [#/Vol] 4.3 E12/L Normal 4.3-5.9 [facility] Comment on above: Performed By: #### 2 [id number] #### [facility] [address] [place] [address] WBC corrected for nucl RBC Auto (Bld) [#/Vol] 8.1 E9/L Normal 4.0-11.0 [facility] Comment on above: Performed By: #### 2 [id number] #### [facility] [address] [place] [address] CHEMISTRYOrdered By: SYSTEM SYSTEM on 12-24-2023 Albumin [Mass/Vol] 4.0 g/dL Normal 3.3 - 5.0 gm/dL Remisol Chem Albumin/Globulin [Mass ratio] 1.3 {ratio} Normal 1.1 - 2.2 [facility] ALP [Catalytic activity/Vol] 70 [iU]/d Normal 21 - 98 Int._Unit/L Remisol Chem ALT No additional P-5'-P [Catalytic activity/Vol] 20 [iU]/d Normal 6 - 46 Int._Unit/L [facility] Chem Anion gap [Moles/Vol] 8 mmol/L Normal 6 - 16 mEq/L R emisol Chem AST [Catalytic activity/Vol] 21 [iU]/d Normal 5 - 43 Int._Unit/L [facility] Bilirubin [Mass/Vol] 0.5 mg/dL Normal 0.0 - 1 .1 mg/dL [facility] Bilirubin.direct [Mass/Vol] 0.1 mg/dL Normal 0.0 - 0.4 mg/dL [facility] Bilirubin.indirect [Mass or moles/Vol] 0.4 mg/dL Normal 0.1 - 0.9 mg/dL [facility] Calcium [Mass/Vol] 8.6 mg/dL Low 8.9 - 11. 1 mg/dL [facility] Chloride [Moles/Vol] 108 mmol/L Normal 101 - 1 11 mmol/L [facility] CO2 [Moles/Vol] 28 mmol/L Normal 21 - 31 mmol/L [facility] Creatinine [Mass/Vol] 0.7 mg/dL Normal 0.5 - 1.3 mg/dL [facility] eGFR 107 mL/min/1.73 m2 Normal >=59mL/mi n/1 .73 m2 [facility] Globulin (S) [Mass/Vol] 3.0 g/dL Normal 1.4 - 4.0 gm/dL [facility] Glucose [Mass/Vol] 85 mg/dL Normal 55 - 199 mg/dL [facility] Lipase [Catalytic activity/Vol] 18 U/L Normal 13 - 58 unit/L [facility] Potassium [Moles/Vol] 4.2 mmol/L Normal 3.5 - 5.3 mmol/L [facility] Protein [Mass/Vol] 7.0 g/dL Normal 6.0 - 7.8 gm/dL [facility] Sodium [Moles/Vol] 140 mmol/L Normal 135 - 145 mmol/L [facility] Urea nitrogen [Mass/Vol] 7 mg/dL Normal 5 - 21 mg/dL [facility] Urea nitrogen/Creatinine [Mass ratio] 10 mg/mg Normal 10 - 20 [facility] Chem ED Clinical Summaryon 2023 ED Clinical Summary ED Clinical Summary [address] [address] ED Clinical Summary Person Information Name: JERAD TRACY [facility] Age: 48 Years : 1975 Sex: Female Language: Cambodian PCP: Cheyanne Rincon Marital Status: Visit Id: Visit Reason: Diarrhea; Abdominal pain; LIVER PAIN Speciality: Acuity: 3 Enc Type: Emergency Med Service: Emergency Arrival: 12/24/2023 14:05:12 Discharge: 12/24/2023 16:59:56 LOS: 000 02:54 Checkin: 12/24/2023 14:05:12 Checkout: 12/24/2023 16:59:56 Dispo Type: Home (Routine DC) EVENTS: Event Name Event Status Request Date/Time Start Date/Time Complete Date/Time Arrive Complete 12/24/2023 14:05:12 12/24/2023 14:05:12 12/24/2023 14:05:12 Document Home Meds Request 12/24/2023 14:05:12 Triage Complete 12/24/2023 14:05:12 12/24/2023 14:30:15 12/24/2023 14:30:15 Registration Complete 12/24/2023 14:07:32 12/24/2023 14:07:32 12/24/2023 14:07:32 Reg Complete Request 12/24/2023 14:07:32 Reg Bed Request Complete 12/24/2023 14:07:32 12/24/2023 14:07:32 12/24/2023 14:07:32 Pending Labs Complete 12/24/2023 14:43:05 12/24/2023 14:50:26 12/24/2023 15:24:48 Lab Complete 12/24/2023 14:43:05 12/24/2023 15:24:48 Pending Labs Complete 12/24/2023 14:58:12 12/24/2023 14:58:12 12/24/2023 15:24:48 Lab Complete 12/24/2023 14:58:12 12/24/2023 14:58:12 12/24/2023 15:24:48 Bed Assign Complete 12/24/2023 15:28:59 12/24/2023 15:28:59 12/24/2023 15:28:59 Dr Exam Complete 12/24/2023 15:28:59 12/24/2023 15:30:32 12/24/2023 15:30:32 RN Exam Complete 12/24/2023 15:28:59 12/24/2023 16:00:07 12/24/2023 16:00:07 Registration Request 12/24/2023 15:30:32 Meds Admin Complete 12/24/2023 15:49:37 12/24/2023 15:57:31 Pending Labs Complete 12/24/2023 16:39:25 12/24/2023 16:39:25 12/24/2023 16:39:26 Discharge Complete 12/24/2023 16:50:06 12/24/2023 17:00:04 12/24/2023 17:00:04 Pending Labs Complete 12/24/2023 16:56:26 12/24/2023 16:56:26 12/24/2023 16:56:26 Transfer Complete 12/24/2023 17:00:04 12/24/2023 17:00:04 12/24/2023 17:00:04 ADDRESS: [facility] [id number] PHYS DOC NOTES: MEDICAL INFORMATION: Prescriptions Given: New Medications [id number], [address] [place], [place] [id number], [phone] dicyclomine (Bentyl 10 mg Cap) 2 Capsules By Mouth 4 times a day. Refills: 0. Medications to Continue with No [...] Tablets By Mouth every day. Refills: 1. fluticasone nasal (Flonase 0.05 mg/inh [place]) 2 Sprays Topical every day. each nostril. Refills: 0. ibuprofen (ibuprofen 800 mg Tab) 1 Tablets [...] hours as needed for nausea. Refills: 0. predniSONE (predniSONE 10 mg Tab) 1 Dose Separtor By Mouth As Directed. Take 3 tabs by mouth daily x3 days, then 2 tabs daily x3 days, then 1 tab daily x3 days.. Refills: 0. PATIENT EDUCATION INFORMATION: Instructions: Abdominal Pain, Adult Follow up: With: Address: When: Cheyanne Rosas [address] [place] [address] A, [place] [address] [facility] (1) In 3 days 12/27/2023 Comments: Make sure to follow-up with your liver doctor as discussed. Return to the emergency room if your pain gets worse, vomiting, fever or any new symptoms. DIAGNOSIS: 1:Right upper quadrant abdominal pain Normal [facility] ED Note-Physicianon 12-24-19 ED Note-Physician ED Note-Physician Basic Information Time Seen: Balbina Bryant M.D. 12/24/2023 15:30 Chief Complaint c/o RUQ pain since yesterday. Denies N/V. c/o diarrhea. States has liver failure. History of Present Illness The patient is 48-year-old female who presented to the emergency room with right upper quadrant abdominal pain. The patient states that she has history of fatty liver and history of hepatitis C. She states she has had this pain in the past. This pain started this morning. She points to the right upper quadrant. The patient states she has history of gallbladder removed. She states she is concerned for her liver enzymes. The patient describes the pain as throbbing. The patient denies any nausea, denies any vomiting. She reports some loose stool this morning. Denies any black or bloody stool. The patient denies any fever denies any chills. She denies any blood in urine. Denies any burning with urination. The patient reports chronic lower back pain. The patient denies any other associated symptoms. Review of Systems Additional ROS info: Except as noted in the above Review of Systems and in the History of Present Illness all other systems have been reviewed and are negative or noncontributory. Physical Exam Vitals & Measurements T: 36.8 ?C(Oral) HR: 89(Monitored) RR: 20 BP: 142/124 SpO2: 99% HT: 160 cm WT: 115.2 kg BMI: 45 General: alert, no acute distress Skin: warm, dry Head: no trauma, normocephalic Neck: Trachea midline, no tenderness, supple Eye: normal conjunctiva, sclera clear, ENMT: Oral mucosa moist, no pharyngeal erythema or exudate Cardiovascular: regular rate and rhythm, Respiratory: Lungs CTA, respirations non labored, breath sounds equal, Gastrointestinal: soft, non distended, mild tenderness right upper quadrant, no guarding, Extremities: no deformity, no trauma Neurological: Alert and oriented, speech normal, no focal neuro deficits Psychiatric: cooperative, affect appropriate for age, Medical Decision Making MEDICAL DECISION MAKING Number and Complexity of Problems Differential Diagnosis: [] [facility] Data External documents reviewed: [] My EKG interpretation: [] My CT interpretation: [] My X-ray interpretation: [] My Ultrasound interpretation: [] Decision rules/scores evaluated: [] Discussed with: [] Treatment and Disposition ED Course: The patient presented with right upper quadrant abdominal pain. Unclear etiology of her pain. She does have history of hepatitis C. The patient was concern for her liver enzymes. Her abdomen is soft. Nonsurgical. Mild tenderness in right upper quadrant. Blood work reviewed unremarkable. Liver enzymes are normal. The patient has had gallbladder removed in the past. She was given Bentyl and her pain improved. Will discharge patient home with prescription for Bentyl and follow-up with her primary doctor and GI doctor. The patient is instructed to return to the emergency room if her pain gets worse, vomiting, fever or any new symptoms. Shared decision making: [] Code status: [] Assessment/Plan 1. Right upper quadrant abdominal pain (R10.11: Right upper quadrant pain) Orders: dicyclomine, 20 mg = 2 cap(s), Oral, QID, # 20 cap(s), Refills(s) 0, Pharmacy: [id number], 160, cm, 12/24/23 14:30:00 EDT, Height/Length Dosing, 115.2, kg, 12/24/23 14:30:00 EDT, Weight Dosing dicyclomine, 20 mg = 2 mL, Injection, IntraMuscular, Once, Stop date 12/24/23 15:49:00 EDT, STAT, Start date 12/24/23 15:49:00 EDT, 12/24/23 15:49:00 EDT Basic Metabolic Panel CBC w/ Auto Diff eGFR Extra Blue Tube Hepatic Function Panel Lipase Level UA with Cult Rflx Medications Administered Given Bentyl 10 mg/mL Injection, 20 mg, IntraMuscular Disposition Plan Patient Discharge Condition Stable, improved Discharge Disposition Discharge home Discharge Prescription List Prescriptions Bentyl 10 mg Cap, 20 mg= 2 cap(s), Oral, QID Follow-up With When Contact Information Cheyanne Rosas In 3 days 12/27/2023 EDT [address], [address] [address]- Business (1) Additional Instructions: Make sure to follow-up with your liver doctor as discussed. Return to the emergency room if your pain gets worse, vomiting, fever or any new symptoms. Patient Education Abdominal Pain, Adult Problem List/Past Medical History Ongoing Arthritis [...] opioid dependence Hepatitis C Liver disease Migraines Procedu (more content not included)... Normal [facility] Comment on above: Result Comment: Elec tronically Signed By: Annette Watkins, Balbina Sparks\.br\Date and Time Signed: 12/24/23 16:53 EDT ED Patient Summaryon 024 ED Patient Summary ED Patient Summary [address] [address] Patient Discharge Instructions Person Information Name: JERAD TRACY Age: 48 Years Arrival Date: 12/24/2023 14:05:12 Discharge Diagnosis: 1:Right upper quadrant abdominal pain Primary Care Physician: Cheyanne Rincon Provider Information Primary Provider: Balbina Bryant M.D. [employer] Kitchen:None The exam and treatment you received in the Emergency Department were for an urgent problem and are not intended as complete care. It is important that you follow up with a doctor, nurse practitioner, or physician?s insurance administrative assistant for ongoing care. If your symptoms [...] Instructions: With: Address: When: Cheyanne Rosas [address] [facility], [address], [place] [id number] Business (1) In 3 days 12/27/2023 Comments: Make sure to follow-up with your liver doctor as discussed. Return to the emergency room if your pain gets worse, vomiting, fever or any new symptoms. In the event that this physician does not participate in your insurance network, please consult with your insurance company to find a nearby participating provider. Patient Education Materials: Abdominal Pain, Adult A MESSAGE TO ALL PATIENTS REGARDING OPIOIDS PRESCRIPTION OPIOIDS: WHAT YOU NEED TO KNOW Prescription opioids can be used to help relieve zjmjpffp-qw-tknhcq pain and are often prescribed following a [...] from the Food and Drug Administration (www.fda.gov/Drugs/Reso Julieta). ? Visit www.cdc.gov/drugoverdos e to learn about the risks of opi (more content not included)... Normal [facility] Extra Blueon 12-24-2023 Tube Collected Plasma Yes Invalid Interpretation Code [facility] Comment on above: Performed By: #### 1 [id number] ####[facility] [address] [place] [address] HEMATOLOGYOrdered By: SYSTEM SYSTEM on 12-24-2023 Basophils/100 WBC (Bld) 0.4 % Normal 0.0 - 2.0 % Remisol Heme Basophils/Leukocytes Auto (Bld) [Pure # fraction] 0.0 E9/L Normal 0.0 - 0.2 E9/L Remisol Heme Eosinophils (Bld) [#/Vol] 0.1 E9/L Normal 0.0 - 0.5 E9/L Remisol Heme Eosinophils/100 WBC (Bld) 1.8 % Normal 0.0 - 8.0 % Remisol Heme Erythrocyte distribution width (RBC) [Ratio] 13.6 % Normal 10.9 - 14.2 % Remisol Heme Hematocrit (Bld) [Volume fraction] 39.1 % Normal 34.0 - 46.0 % Remisol Heme Hemoglobin (Bld) [Mass/Vol] 13.6 g/dL Normal 12.0 - 16.0 gm/dL Remisol Heme Lymphocytes (Bld) [#/Vol] 1.9 E9/L Normal 1.0 - 4.0 E9/L Remisol Heme Lymphocytes/100 WBC (Bld) 23.2 % Normal 14.0 - 50.0 % Remisol Heme MCH (RBC) [Entitic mass] 31.9 pg Normal 27.0 - 34.0 pg Remisol Heme MCHC (RBC) [Mass/Vol] 34.7 g/dL Normal 31.4 - 36.0 gm/dL Remisol Heme MCV (RBC) [Entitic vol] 91.9 fL Normal 80.0 - 100.0 fL Remisol Heme Monocytes (Bld) [#/Vol] 0.5 E9/L Normal 0.2 - 1.0 E9/L Remisol Heme Monocytes/100 WBC (Bld) 6.4 % Normal 4.0 - 14.0 % Remisol Heme Neutrophils (Bld) [#/Vol] 5.5 E9/L Normal 2.0 - 7.5 E9/L Remisol Heme Neutrophils/100 WBC (Bld) 68.2 % Normal 36.0 - 75.0 % Remisol Heme Platelet 359.0 E9/L Normal 150.0 - 500.0 E9/L Remisol Heme Platelet mean volume (Bld) [Entitic vol] 7.9 fL Normal 6.4 - 10.8 fL Remisol Heme RBC (Bld) [#/Vol] 4.3 E12/L Normal 4.3 - 5.9 E12/L Remisol Heme WBC corrected for nucl RBC Auto (Bld) [#/Vol] 8.1 E9/L Normal 4.0 - 11.0 E9/L Remisol Heme Hep Func Panelon 12-24-2023 Albumin [Mass/Vol] 4.0 g/dL Normal 3.3-5.0 [facility] Comment on above: Performed By: #### 2 [id number] #### [facility] [address] [place] [address] Albumin/Globulin (S) [Mass conc ratio] 1.3 Normal 1.1-2.2 [facility] Comment on above: Performed By: #### 2 [id number] #### [facility] [address] [place] [address] ALP [Catalytic activity/Vol] 70 Int._Unit/L Normal 21-98 [facility] Comment on above: Performed By: #### 2 [id number] #### [facility] [address] [place] [address] ALT No additional P-5'-P [Catalytic activity/Vol] 20 Int._Unit/L Normal 6-46 [facility] Comment on above: Performed By: #### 2 [id number] #### [facility] [address] [place] [address] AST [Catalytic activity/Vol] 21 Int._Unit/L Normal 5-43 [facility] Comment on above: Performed By: #### 2 [id number] #### [facility] [address] [place] [address] Bilirubin [Mass/Vol] 0.5 mg/dL Normal 0.0-1.1 [facility] Comment on above: Performed By: #### 2 [id number] #### [facility] [address] [place] [address] Bilirubin.direct [Mass/Vol] 0.1 mg/dL Normal 0.0-0.4 [facility] Comment on above: Performed By: #### 2 [id number] #### [facility] [address] [place] [address] Bilirubin.indirect [Mass or moles/Vol] 0.4 mg/dL Normal 0.1-0.9 [facility] Comment on above: Performed By: #### 2 [id number] #### [facility] [address] [place] [address] Globulin (S) [Mass/Vol] 3.0 g/dL Normal 1.4-4.0 [facility] Comment on above: Performed By: #### 2 720444 #### [facility] [address] [place] [address] Protein [Mass/Vol] 7.0 g/dL Normal 6.0-7.8 [facility] Comment on above: Performed By: #### 2 [id number] #### [facility] [address] [place] [address] Lipase Levelon 12-24-2023 Lipase [Catalytic activity/Vol] 18 U/L Normal 13-58 [facility] Comment on above: Performed By: #### 2 [id number] #### [facility] [address] [place] [address] UA with Cult Rflxon 12-24-19 24 Bilirubin Ql (U) Negative Normal Negative [facility] Comment on above: Performed By: #### 4 [id number] #### [facility] [address] [place] [address] Clarity (U) Clear Normal Clear [facility] Comment on above: Performed By: #### 4 [id number] #### [facility] [address] [place] [address] Color (U) Colorless Abnormal Yellow [facility] Comment on above: Result Comment: Micr oscopic readings are only performed on those samples that meet specific criteria set forth by [facility]. Performed By: #### 4 [id number] #### [facility] [address] [place] [address] Glucose Ql (U) Negative Normal Negative [facility] Comment on above: Performed By: #### 4 [id number] #### [facility] [address] [place] [address] Hemoglobin Auto test strip (U) [Mass/Vol] Negative Normal Negative [facility] Comment on above: Performed By: #### 4 [id number] #### [facility] [address] [place] [address] Ketones Auto test strip Ql (U) Negative Normal Negative [facility] Comment on above: Performed By: #### 4 [id number] #### [facility] [address] [place] [address] Leukocyte esterase Auto test strip Ql (U) Negative Normal Negative [facility] Comment on above: Performed By: #### 4 [id number] #### [facility] [address] [place] [address] Nitrite Auto test strip Ql (U) Negative Normal Negative [facility] Comment on above: Performed By: #### 4 [id number] #### [facility] [address] [place] [address] pH (U) 7.5 [pH] Invalid Interpretation Code 5.0-9.0 [facility] Comment on above: Performed By: #### 4 [id number] #### [facility] [address] [place] [address] Protein Ql (U) Negative Normal Negative [facility] Comment on above: Performed By: #### 4 [id number] #### [facility] [address] [place] [address] Specific gravity (U) [Rel density] 1.008 Invalid Interpretation Code 1.005-1.030 [facility] Comment on above: Performed By: #### 4 [id number] #### [facility] [address] [place] [address] Urobilinogen (U) [Mass/Vol] Negative Normal Negative [facility] Comment on above: Performed By: #### 4 [id number] #### [facility] [address] [place] [address] Type of Urine collection method Clean Catch Normal [facility] Comment on above: Performed By: #### 4 [id number] #### [facility] [address] [place] [address] URINALYSISOrdered By: SYSTEM SYSTEM on 12-24-2023 Bilirubin Ql (U) Negative Normal Negativemg/ d L [facility] UA Auto SS Clarity (U) Clear (12/24/23 2:48 PM) Normal Clear [facility] UA Auto SS Color (U) Colorless 1 *ABN* (12/24/23 2:48 PM) Invalid Interpretation Code Yellow [facility] UA Auto SS Comment on above: Interpretive Data: M icroscopic readings are only performed on those samples that meet specific criteria set forth by [facility]. Glucose Ql (U) Negative Normal Negativemg/d L [facility] UA Auto SS Hemoglobin Auto test strip (U) [Mass/Vol] Negative Normal Negativemg/d L [facility] UA Auto SS Ketones Auto test strip Ql (U) Negative Normal Negativemg/d L [facility] UA Auto SS Leukocyte esterase Auto test strip Ql (U) Negative Normal NegativeLeu/ uL [facility] UA Auto SS Nitrite Auto test strip Ql (U) Negative Normal Negativemg/d L [facility] UA Auto SS pH (U) 7.5 *NA* (12/24/23 2:48 PM) Invalid Interpretation Code 5.0 - 9.0 [facility] UA Auto SS Protein Ql (U) Negative Normal Negativemg/d L [facility] UA Auto SS Specific gravity (U) [Rel density] 1.008 *NA* (12/24/23 2:48 PM) Invalid Interpretation Code 1.005 - 1.030 [facility] UA Auto SS Urobilinogen (U) [Mass/Vol] Negative Normal Negativemg/d L [facility] UA Auto SS URINALYSISOrdered By: Deepa Mccormack on 12-24-2023 UA Spec Desc Clean Catch (12/24/23 2:48 PM) Normal [facility] UA Auto SS eGFRon 12-24-2023 eGFR 107 mL/min/1.73 m2 Normal >=59 [facility] Comment on above: Performed By: #### 1 [id number] #### [facility] [address] [place] [address] Traqa-9-[id number] 2023 AFP [Mass/Vol] 4 ng/mL Normal 0-[address] [facility] Comment on above: Order Comment: AFP t esting is performed by chemiluminescent immunoassay using the Siemens AlienVault. Values obtained with different analyte methods cannot be used interchangeably. This test can be used as an adjunct in the diagnosis and monitoring of AFP-producing tumors, including non-seminomatous germ cell tumors and hepatocellular carcinomas. Performed By: #### 1 834-1 ####JOLENE Cantu ([id number])[facility] ([facility])[id number] [place] [address] Bilirubin.glucuronidated+Kenan irubin.albumin boundon 12-23-2023 Bilirubin.direct [Mass/Vol] 0.1 mg/dL Normal 0.0-0.[address] [facility] Comment on above: Performed By: #### 1 968-7 ####GIOVANNI BURNETT ([id number])[facility] ([facility])[address] [place] [address] Coagulation tissue factor in ducedon 12-23-2023 PT Coag (PPP) [Time] 11.0 s Normal 9.8-12.8 [facility] Comment on above: Performed By: #### 5 902-2 ####GIOVANNI BURNETT ([id number])[facility] ([facility])[address] [place] [address] Comprehensive metabolic 2000 panelon 12-23-2023 Albumin BCP dye [Mass/Vol] 4.0 g/dL Normal 3.4-5.[address] [facility] Comment on above: Performed By: #### 2 4323-8 ####GIOVANNI BURNETT ([id number])[facility] ([facility])[address] [place] [address] ALP [Catalytic activity/Vol] 79 U/L Normal 33-[address] [facility] Comment on above: Performed By: #### 2 4323-8 ####GIOVANNI BURNETT ([id number])[facility] ([facility])[address] [place] [address] ALT With P-5'-P [Catalytic activity/Vol] 19 U/L Normal 7-[address] [facility] Comment on above: Result Comment: Katia ents treated with Sulfasalazine may generate falsely decreased results for ALT. Performed By: #### 2 4323-8 ####GIOVANNI BURNETT ([id number])[facility] ([facility])[address] [place] [address] Anion gap [Moles/Vol] 11 mmol/L Normal 10-20 [facility] Comment on above: Performed By: #### 2 4323-8 ####GIOVANNI BURNETT ([id number])[facility] ([facility])[address] [place] [address] AST With P-5'-P [Catalytic activity/Vol] 20 U/L Normal 9-[address] [facility] Comment on above: Performed By: #### 2 4323-8 ####GIOVANNI BURNETT ([id number])[facility] ([facility])[address] [place] [address] Bilirubin [Mass/Vol] 0.2 mg/dL Normal 0.0-1.2 [facility] Comment on above: Performed By: #### 2 4323-8 ####GIOVANNI BURNETT ([id number])[facility] ([facility] [place] [address] Calcium [Mass/Vol] 8.5 mg/dL Low 8.6-10.3 [facility] Comment on above: Performed By: #### 2 4323-8 ####GIOVANNI BURNETT ([id number])[facility] ([facility])[address] [place] [address] Chloride [Moles/Vol] 105 mmol/L Normal 98-107 [facility] Comment on above: Performed By: #### 2 4323-8 ####GIOVANNI BURNETT ([id number])[facility] ([facility])[address] [place] [address] CO2 [Moles/Vol] 28 mmol/L Normal 21-32 [facility] Comment on above: Performed By: #### 2 4323-8 ####GIOVANNI BURNETT ([id number])[facility] ([facility])[address] [place] [address] Creatinine [Mass/Vol] 0.83 mg/dL Normal 0.50-1.05 [facility] Comment on above: Performed By: #### 2 4323-8 ####GIOVANNI BURNETT ([id number])[facility] ([facility])[address] [place] [address] Glomerular filtration rate/1.73 sq M.predicted 88 mL/min/1.73m*2 Normal >[address] [facility] Comment on above: Result Comment: Calc ulations of estimated GFR are performed using the 2020 CKD-EPI Study Refit equation without the race variable for the IDMS-Traceable creatinine methods.https://jasn.asnjournals.org/content/early/A SN.5218057400 Performed By: #### 2 4323-8 ####GIOVANNI BURNETT ([id number])[facility] ([facility])[address] [place] [address] Glucose [Mass/Vol] 87 mg/dL Normal 74-99 [facility] Comment on above: Performed By: #### 2 4323-8 ####GIOVANNI BURNETT ([id number])[facility] ([facility])[address] [place] [address] Potassium [Moles/Vol] 4.6 mmol/L Normal 3.5-5.3 [facility] Comment on above: Performed By: #### 2 4323-8 ####GIOVANNI BURNETT ([id number])[facility] ([facility])[address] [place] [address] Protein [Mass/Vol] 6.3 g/dL Low 6.4-8.2 [facility] Comment on above: Performed By: #### 2 4323-8 ####GIOVANNI BURNETT ([id number])[facility] ([facility])[address] [place] [address] Sodium [Moles/Vol] 139 mmol/L Normal 136-145 [facility] Comment on above: Performed By: #### 2 4323-8 ####GIOVANNI BURNETT ([id number])[facility] ([facility])[address] [place], [place] [address] Urea nitrogen [Mass/Vol] 10 mg/dL Normal 6-[address] [facility] Comment on above: Performed By: #### 2 4323-8 ####GIOVANNI BURNETT ([id number])[facility] ([facility])[address] [place] [address] PT Coag (PPP) [Time]on 12-22 INR Coag (PPP) [Relative time] 0.9 Normal 0.9-1.[address] [facility] Comment on above: Performed By: #### 5 902-2 ####GIOVANNI BURNETT ([id number])[facility] ([facility])[address] [place], [place] [address] US ABDOMEN LIMITED LIVERon 0 12-23-2023 US ABDOMEN LIMITED LIVER Interpreted By: Harshad Tran, STUDY: US ABDOMEN LIMITED LIVER; 12/23/2023 2:39 pm INDICATION: Signs/Symptoms:Liver cancer screening. ,B18.2 Chronic viral hepatitis C (Multi) COMPARISON: None. ACCESSION NUMBER(S): [id number] ORDERING CLINICIAN: CHIDI JOSEPH TECHNIQUE: Multiple images of the right upper quadrant were obtained. FINDINGS: LIVER: The liver measures 17.1 cm and is grossly unremarkable and free of any focal lesions. GALLBLADDER: Surgically absent. BILE DUCTS: No evidence of intrahepatic biliary dilatation is identified; common bile duct is dilated, and measures 0.9 cm. This is likely normal in a post cholecystectomy state. PANCREAS: The visualized pancreas is unremarkable in appearance. RIGHT KIDNEY: The right kidney measures 11.3 cm in length. The renal cortical echogenicity and thickness are within normal limit. No hydronephrosis or renal calculi are seen. IMPRESSION: The patient is status post cholecystectomy. Otherwise, grossly unremarkable right upper quadrant ultrasound. MACRO: None Signed by: Harshad Tran 12/24/2023 6:42 AM Dictation workstation: [id number] [facility] CT LUMBAR SPINE WO IV CONTRA STon 12-21-2023 CT LUMBAR SPINE WO IV CONTRAST Interpreted By: Tomás Hercules, STUDY: CT LUMBAR SPINE WO IV CONTRAST; 12/21/2023 10:01 pm INDICATION: Signs/Symptoms:fell, injured lower back. COMPARISON: MR lumbar spine 12/18/2023 ACCESSION NUMBER(S): [id number] ORDERING CLINICIAN: FRANCISCO J DALEY TECHNIQUE: Axial noncontrast CT images of the lumbar spine with coronal and sagittal reconstructed images. FINDINGS: ALIGNMENT: No traumatic malalignment. VERTEBRAE: No acute loss of vertebral body height. DISC SPACES: Disc space narrowing with vacuum disc phenomena at L4/L5. SPINAL CANAL: Mild facet arthropathy. Posterior disc osteophyte complex at L4/L5 contributes to mild central narrowing and moderate bilateral foraminal narrowing. PREVERTEBRAL SOFT TISSUES: No prevertebral soft tissue swelling. OTHER FINDINGS: None. IMPRESSION: No acute fracture or traumatic subluxation of the lumbar spine. Lumbar spondylosis most pronounced at L4/L5. MACRO: None. Signed by: Tomás Hercules 12/21/2023 10:40 PM Dictation workstation: [id number] [facility] ED Clinical Summaryon 2023 ED Clinical Summary (Inserted Image. Darlene ble to display) [address] [address] ED Clinical Summary Person Information Name: Jerad Tracy Alesha/[facility] Age: 48 Years : 1975 Sex: Female PCP: Marital Status: Phone: Race: White Ethnicity: Not or Language: Cambodian Visit Reason: Back pain; Back Pain Acuity: 4 Enc Type: Emergency Med Service: Emergency Medicine Arrival: 12/20/2023 14:17:06 Discharge: 12/20/2023 15:29:00 LOS: 000 01:12 Checkin: 12/20/2023 14:17:06 Checkout: 12/20/2023 15:29:00 Dispo Type: Home or Self Care Address: [address] [place] [id number] Provider Notes: Diagnosis: 1:Chronic back pain Problems No Problems Documented Smoking Status: Smoking Status 10 or more cigarettes (1/2 pack or more)/day in last 30 days Functional Status: Sensory Deficits: History of Falls: Mobility Assistance Prior to Admission: ADLs: Current Level of Assistance for Self-Care/Mobility: Cognitive Status: Allergies HYDROcodone (hives) penicillin (hives) Laboratory or Other Results This Visit (last charted value for your 12/20/2023 visit) No Laboratory or Other Results This Visit Measurements: Height: Weight: 113.9 kg Blood Pressure: /98 mmHg BMI: Procedures No Procedures Documented Immunizations [...] Role Assigned Unassigned Daysi Yates ED MidLevel 12/20/2023 14:24:34 Follow up: With: Address: When: Back specialist Comments: Follow-up with your back specialist as previously directed. Use your current at home pain medication regimen for pain control. Discharge Orders: Discharge Patient 12/20/23 14:58:00 EDT, Discharge to Home, Self Patient Education Information: [facility] Poison Help line: . [facility] Hotline: [place] Tobacco Quit Line: [place], [place]) [address]: [phone] [place], [place]) [address]: [phone] [facility] [address] [facility]. [place], [place]: [phone] [facility] ED Note-Physicianon 12-20-19 ED Note-Physician Chief Complaint c/o lower back pain that started this morning History of Present Illness Patient is an alert, oriented 48-year-old female presenting to the emergency department with complaints of low back pain. Patient reports that every time she comes to her son she ends up with this back pain. She is not from this area but her son does live in this area. Patient reports that she just needs to be able to get back home. This pain is chronic back pain but she needs to be able to sit to a car for an extended period of time in order to get back home. There is some mild midline vertebral tenderness noted in the lumbar spine but most of the pain is extending across the musculature of the low back. Patient does have decreased range of motion of the trunk secondary to this. We have done in the past for her is giving her an IM injection of Dilaudid and of Toradol and this has done very well for her and getting her back home and back on her home medication regimen. Patient is agreeable with this. Patient denies any chest pain or shortness of breath. Patient denies any nausea, vomiting, or diarrhea. Heart sounds are S1-S2. Lung sounds are clear throughout. Review of Systems As reviewed in the HPI. All other systems reviewed are negative or normal. Physical Exam As dictated in HPI Vitals & Measurements T: 36.7 ?C (Oral) HR: 101 (Peripheral) BP: 140/98 SpO2: 97% HT: 160.0 cm WT: 113.9 kg (Dosing) Additional Vitals No qualifying data available. Procedure No qualifying data available. ASA Documentation Medical Decision Making MEDICAL DECISION MAKING Number and Complexity of Problems Differential Diagnosis: _Including but not limited to chronic back pain Treatment and Disposition ED Course: _Patient is an alert, oriented 48-year-old female presenting to the emergency department with complaints of low back pain. Patient reports that every time she comes to her son she ends up with this back pain. She is not from this area but her son does live in this area. Patient reports that she just needs to be able to get back home. This pain is chronic back pain but she needs to be able to sit to a car for an extended period of time in order to get back home. There is some mild midline vertebral tenderness noted in the lumbar spine but most of the pain is extending across the musculature of the low back. Patient does have decreased range of motion of the trunk secondary to this. We have done in the past for her is giving her an IM injection of Dilaudid and of Toradol and this has done very well for her and getting her back home and back on her home medication regimen. Patient is agreeable with this. Patient denies any chest pain or shortness of breath. Patient denies any nausea, vomiting, or diarrhea. Heart sounds are S1-S2. Lung sounds are clear throughout. Plan to discharge home with the following discharge instructions: Follow-up with your back specialist as previously directed. Use your current at home pain medication regimen for pain control. Patient verbalized understanding had no further questions or concerns. All were agreeable with this plan of care. Shared decision making: _The results of pertinent diagnostic studies and exam findings were discussed. The patient's provisional diagnosis and plan of care were [...] _Full code Assessment/Plan 1. Chronic back pain Orders: HYDROmorphone, 2 mg, IM, Injection, Once, PRN pain, First Dose: 12/20/23 14:47:00 EDT, Dispense From Location: [facility], 12/20/23 14:47:00 EDT ketorolac, 30 mg, IM, Injection, Once, First Dose: 12/20/23 14:48:00 EDT, Stop Date: 12/20/23 14:48:00 EDT, Dispense From Location: [id number], 12/20/23 14:48:00 EDT Refresh vitals and sections below: Problem List/Past Medical History Ongoing Hep C w/ coma, chronic Historical No qualifying data Medications Inpatient Dilaudid, 2 mg= 1 mL, IM, Once, PRN Toradol, 30 mg= 1 mL, IM, Once Home Bentyl 10 mg oral capsule, 10 [...] Abuse Denies All Tobacco 10 or more cigarettes (1/2 pack or more)/day in last 30 days Use:. Diagnostic Results Electronically signed by ___ (more content not included)... Normal [facility] C reactive proteinon 024 CRP [Mass/Vol] 0.80 mg/dL Normal <1.[address] [facility] Comment on above: Performed By: #### 1 988-5 ####JOLENE Cantu ([id number])[facility] ([facility])[address] [place] [address] CBC W Auto Differential pane l (Bld)on 12-18-2023 Basophils (Bld) [#/Vol] 0.01 x10*3/uL Normal 0.00-0.[address] [facility] Comment on above: Performed By: #### 5 7021-8 ####JOLENE Cantu ([id number])[facility] ([facility])[address] [place] [address] Basophils/100 WBC (Bld) 0.1 % Normal 0.0-2.[address] [facility] Comment on above: Performed By: #### 5 7021-8 ####JOLENE Cantu ([id number])[facility] ([facility])[address] [place] [address] Eosinophils (Bld) [#/Vol] 0.14 x10*3/uL Normal 0.00-0.[address] [facility] Comment on above: Performed By: #### 5 7021-8 ####JOLENE Cantu ([id number])[facility] ([facility])[address] [place] [address] Eosinophils/100 WBC (Bld) 1.5 % Normal 0.0-6.[address] [facility] Comment on above: Performed By: #### 5 7021-8 ####JOLENE Cantu ([id number])[facility] ([facility])[id number] [place] [address] Erythrocyte distribution width (RBC) [Ratio] 12.8 % Normal 11.5-14.[address] [facility] Comment on above: Performed By: #### 5 7021-8 ####JOLENE RONQUILLO L (03909)[facility] ([facility])[address] [place] [address] Hematocrit (Bld) [Volume fraction] 42.2 % Normal 36.0-46.[address] [facility] Comment on above: Performed By: #### 5 7021-8 ####JOLENE RONQUILLO L ([id number])[facility] ([facility])[address] [place] [address] Hemoglobin (Bld) [Mass/Vol] 14.0 g/dL Normal 12.0-16.[address] [facility] Comment on above: Performed By: #### 5 7021-8 ####JOLENE RONQUILLO L ([id number])[facility] ([facility])[address] [place] [address] Immature granulocytes (Bld) [#/Vol] 0.05 x10*3/uL Normal 0.00-0.[address] [facility] Comment on above: Performed By: #### 5 7021-8 ####JOLENE RONQUILLO L ([id number])[facility] ([facility])[address] [place] [address] Immature granulocytes/100 WBC (Bld) 0.5 % Normal 0.0-0.[address] [facility] Comment on above: Result Comment: Aspen ture Granulocyte Count (IG) includes promyelocytes, myelocytes and metamyelocytes but does not include bands. Percent differential counts (%) should be interpreted in the context of the absolute cell counts (cells/UL). Performed By: #### 5 7021-8 ####JOLENE WELSHMOTZER L ([id number])[facility] ([facility])[address] [place] [address] Lymphocytes (Bld) [#/Vol] 1.77 x10*3/uL Normal 1.20-4.[address] [facility] Comment on above: Performed By: #### 5 7021-8 ####JOLENE Cantu ([id number])[facility] ([facility])[address] [place] [address] Lymphocytes/100 WBC (Bld) 18.6 % Normal 13.0-44.[address] [facility] Comment on above: Performed By: #### 5 7021-8 ####JOLENE Cantu ([id number])[facility] ([facility])[address] [place] [address] MCH (RBC) [Entitic mass] 30.2 pg Normal 26.0-34.[address] [facility] Comment on above: Performed By: #### 5 7021-8 ####JOLENE Cantu ([id number])[facility] ([facility])[address] [place] [address] MCHC (RBC) [Mass/Vol] 33.2 g/dL Normal 32.0-36.0 [facility] Comment on above: Performed By: #### 5 7021-8 ####JOLENE Cantu ([id number])[facility] ([facility])[address] [place] [address] MCV (RBC) [Entitic vol] 91 fL Normal 80-[address] [facility] Comment on above: Performed By: #### 5 7021-8 ####JOLENE Cantu ([id number])[facility] ([facility])[address] [place] [address] Monocytes (Bld) [#/Vol] 0.61 x10*3/uL Normal 0.10-1.[address] [facility] Comment on above: Performed By: #### 5 7021-8 ####JOLENE Cantu ([id number])[facility] ([facility])[address] [place] [address] Monocytes/100 WBC (Bld) 6.4 % Normal 2.0-10.[address] [facility] Comment on above: Performed By: #### 5 7021-8 ####JOLENE RONQUILLO L (54463)[facility] ([facility])[address] [place] [address] Neutrophils (Bld) [#/Vol] 6.96 x10*3/uL Normal 1.20-7.[address] [facility] Comment on above: Result Comment: Perc ent differential counts (%) should be interpreted in the context of the absolute cell counts (cells/uL). Performed By: #### 5 7021-8 ####JOLENE RONQUILLO L ([id number])[facility] ([facility])[address]34 [place] [address] Neutrophils/100 WBC (Bld) 72.9 % Normal 40.0-80.[address] [facility] Comment on above: Performed By: #### 5 7021-8 ####JOLENE Cantu ([id number])[facility] ([facility])[address]167 [place] [address] Nucleated RBC/100 WBC (Bld) [Ratio] 0.0 /100 WBCs Normal 0.0-0.[address] [facility] Comment on above: Performed By: #### 5 7021-8 ####JOLENE RONQUILLO L ([id number])[facility] ([facility])[address] [place] [address] Platelets (Bld) [#/Vol] 365 x10*3/uL Normal 150-[address] [facility] Comment on above: Performed By: #### 5 7021-8 ####JOLENE WELSHMOREGINALDO L (83953)[facility] ([facility])[address]47 [place] [address] RBC (Bld) [#/Vol] 4.63 x10*6/uL Normal 4.00-5.20 [facility] Comment on above: Performed By: #### 5 7021-8 ####JOLENE WELSHMOTZAD L ([id number])[facility] ([facility])[address] [place] [address] WBC (Bld) [#/Vol] 9.5 x10*3/uL Normal 4.4-11.3 [facility] Comment on above: Performed By: #### 5 7021-8 ####JOLENE Cantu ([id number])[facility] ([facility])[address] [place] [address] Comprehensive metabolic 2000 panelon 12-18-2023 Albumin BCP dye [Mass/Vol] 4.3 g/dL Normal 3.4-5.[address] [facility] Comment on above: Performed By: #### 2 4323-8 ####JOLENE Cantu (48884)[facility] ([facility])[address]65 [place] [address] ALP [Catalytic activity/Vol] 70 U/L Normal 33-[address] [facility] Comment on above: Performed By: #### 2 4323-8 ####JOLENE Cantu ([id number])[facility] ([facility])[address] [place] [address] ALT With P-5'-P [Catalytic activity/Vol] 19 U/L Normal 7-[address] [facility] Comment on above: Result Comment: Katia ents treated with Sulfasalazine may generate falsely decreased results for ALT. Performed By: #### 2 4323-8 ####JOLENE Cantu (55061)[facility] ([facility])[address] [place] [address] Anion gap [Moles/Vol] 15 mmol/L Normal 10-20 [facility] Comment on above: Performed By: #### 2 4323-8 ####JOLENE Cantu ([id number])[facility] ([facility])[address]14 [place] [address] AST With P-5'-P [Catalytic activity/Vol] 18 U/L Normal 9-[address] [facility] Comment on above: Performed By: #### 2 4323-8 ####JOLENE RONQUILLO L (65498)[facility] ([facility])[address] [place] [address] Bilirubin [Mass/Vol] 0.5 mg/dL Normal 0.0-1.2 [facility] Comment on above: Performed By: #### 2 4323-8 ####JOLENE Cantu ([id number])[facility] ([facility])[address]53 [place] [address] Calcium [Mass/Vol] 9.2 mg/dL Normal 8.6-10.6 [facility] Comment on above: Performed By: #### 2 4323-8 ####JOLENE RONQUILLO L (40637)[facility] ([facility])[address] [place] [address] Chloride [Moles/Vol] 101 mmol/L Normal 98-107 [facility] Comment on above: Performed By: #### 2 4323-8 ####JOLENE RONQUILLO L (62023)[facility] ([facility])[address]246 [place] [address] CO2 [Moles/Vol] 24 mmol/L Normal 21-32 [facility] Comment on above: Performed By: #### 2 4323-8 ####JOLENE RONQUILLO L (94403)[facility] ([facility])[address]370 [place] [address] Creatinine [Mass/Vol] 0.76 mg/dL Normal 0.50-1.05 [facility] Comment on above: Performed By: #### 2 4323-8 ####JOLENE RONQUILLO L (60131)[facility] ([facility])[address]90 [place] [address] GFR/1.73 sq M.predicted MDRD (S/P/Bld) [Vol rate/Area] mL/min/{1.73_m2} Normal >[address] [facility] Comment on above: Result Comment: Calc ulations of estimated GFR are performed using the 2020 CKD-EPI Study Refit equation without the race variable for the IDMS-Traceable creatinine methods.https://jasn.asnjournals.org/content//A SN.7514926984 Performed By: #### 2 4323-8 ####JOLENE Cantu ([id number])[facility] ([facility])[address]76 [place] [address] Glucose [Mass/Vol] 101 mg/dL High 74-99 [facility] Comment on above: Performed By: #### 2 4323-8 ####JOLENE Cantu ([id number])[facility] ([facility])[address]351 [place] [address] Potassium [Moles/Vol] 4.0 mmol/L Normal 3.5-5.3 [facility] Comment on above: Performed By: #### 2 4323-8 ####JOLENE Cantu (35305)[facility] ([facility])[address]28 [place] [address] Protein [Mass/Vol] 7.5 g/dL Normal 6.4-8.2 [facility] Comment on above: Performed By: #### 2 4323-8 ####JOLENE Cantu (42087)[facility] ([facility])[address]508 [place] [address] Sodium [Moles/Vol] 136 mmol/L Normal 136-145 [facility] Comment on above: Performed By: #### 2 4323-8 ####JOLENE Cantu (32839)[facility] ([facility])[address]149 [place] [address] Urea nitrogen [Mass/Vol] 10 mg/dL Normal 6-[address] [facility] Comment on above: Performed By: #### 2 4323-8 ####JOLENE Cantu ([id number])[facility] ([facility])[address]230 [place] [address] ESR Westergren method (Bld) [Velocity]on 12-18-2023 ESR (Bld) [Velocity] 51 mm/h High 0-20 [facility] Comment on above: Performed By: #### 4 537-7 ####JOLENE Cantu ([id number])[facility] ([facility])[address]20 [place] [address] MR CERVICAL SPINE W AND WO I V CONTRASTon 12-18-2023 MR CERVICAL SPINE W AND WO IV CONTRAST Normal [facility] MR LUMBAR SPINE W AND WO IV CONTRASTon 12-18-2023 MR LUMBAR SPINE W AND WO IV CONTRAST Normal [facility] MR THORACIC SPINE W AND WO I V CONTRASTon 12-18-2023 MR THORACIC SPINE W AND WO IV CONTRAST Normal [facility] Urinalysis complete W Reflex Culture panel (U)on 12-18-2023 Appearance (U) Clear Normal Clear [facility] Comment on above: Performed By: #### 5 8077-9 ####JOLENE Cantu ([id number])[facility] ([facility])[address] [place] [address] Bilirubin (U) [Mass/Vol] Negative Normal NEGATIVE [facility] Comment on above: Performed By: #### 5 8077-9 ####JOLENE Cantu ([id number])[facility] ([facility])[address] [place] [address] Color (U) Colorless Normal Light-Yellow , Yellow, Dark-Yellow [facility] Comment on above: Performed By: #### 5 8077-9 ####JOLENE Cantu ([id number])[facility] ([facility])[address] [facility] [place] [address] Glucose Auto test strip (U) [Mass/Vol] Normal Normal Normal [facility] Comment on above: Performed By: #### 5 8077-9 ####JOLENE Cantu ([id number])[facility] ([facility])[address]21 [place] [address] Ketones (U) [Mass/Vol] Negative Normal NEGATIVE [facility] Comment on above: Performed By: #### 5 8077-9 ####JOLENE Cantu (71960)[facility] ([facility])[address]126 [facility] [place] [address] Leukocyte esterase Auto test strip Ql (U) Negative Normal NEGATIVE [facility] Comment on above: Performed By: #### 5 8077-9 ####JOLENE Cantu (94766)[facility] ([facility])[address]84 [place] [address] Nitrite Auto test strip Ql (U) Negative Normal NEGATIVE [facility] Comment on above: Performed By: #### 5 8077-9 ####JOLENE Cantu ([id number])[facility] ([facility])[address]75 [place] [address] pH (U) 7.5 [pH] Normal 5.0, 5.5, 6.0, 6.5, 7.0, 7.5, 8.[address] [facility] Comment on above: Performed By: #### 5 8077-9 ####JOLENE Cantu ([id number])[facility] ([facility])[address] [place] [address] Protein (U) [Mass/Vol] Negative Normal NEGAT ALEXANDRE, 10 (TRACE), 20 (TRACE) [facility] Comment on above: Performed By: #### 5 8077-9 ####JOLENE Cantu (27309)[facility] ([facility])[address] [place] [address] RBC (U) [#/Vol] Negative Normal NEGATIVE [facility] Comment on above: Performed By: #### 5 8077-9 ####JOLENE Cantu (16563)[facility] ([facility])[address]35 [place] [address] Specific gravity (U) [Rel density] 1.004 Normal 1.005-1.[address] [facility] Comment on above: Performed By: #### 5 8077-9 ####JOLENE RONQUILLO L (58936)[facility] ([facility])[address]109 [place] [address] Urobilinogen (U) [Mass/Vol] Normal Normal Normal [facility] Comment on above: Performed By: #### 5 8077-9 ####JOLENE Cantu ([id number])[facility] ([facility])[address]100 [place] [address] CBC W Auto Differential pane l (Bld)on 12-15-2023 Basophils (Bld) [#/Vol] 0.01 x10*3/uL Normal 0.00-0.10 [facility] Comment on above: Performed By: #### 5 7021-8 #### SANTOSH BAI ([id number]) [facility] ([facility]) [address] [place] [id number] Basophils/100 WBC (Bld) 0.1 % Normal 0.0-2.0 [facility] Comment on above: Performed By: #### 5 7021-8 #### SANTOSH BAI (42784) [facility] ([facility]) [address] [place] [address] Eosinophils (Bld) [#/Vol] 0.00 x10*3/uL Normal 0.00-0.70 [facility] Comment on above: Performed By: #### 5 7021-8 #### SANTOSH BAI ([id number]) [facility] ([facility]) [address] [place] [id number] Eosinophils/100 WBC (Bld) 0.0 % Normal 0.0-6.0 [facility] Comment on above: Performed By: #### 5 7021-8 #### SANTOSH BAI (86091) [facility] ([facility]) [address] [place] [address] Erythrocyte distribution width (RBC) [Ratio] 13.2 % Normal 11.5-14.5 [facility] Comment on above: Performed By: #### 5 7021-8 #### SANTOSH BAI ([id number]) [facility] ([facility]) [address] [place] [address] Hematocrit (Bld) [Volume fraction] 40.3 % Normal 36.0-46.0 [facility] Comment on above: Performed By: #### 5 7021-8 #### SANTOSH BAI (81121) [facility] ([facility]) [address] [place] [address]13[address] Hemoglobin (Bld) [Mass/Vol] 13.1 g/dL Normal 12.0-16.0 [facility] Comment on above: Performed By: #### 5 7021-8 #### SANTOSH BAI (57113) [facility] ([facility]) [address] [place] [address] Immature granulocytes (Bld) [#/Vol] 0.05 x10*3/uL Normal 0.00-0.70 [facility] Comment on above: Performed By: #### 5 7021-8 #### SANTOSH BAI (94223) [facility] ([facility]) [address] [place] [address] Immature granulocytes/100 WBC (Bld) 0.6 % Normal 0.0-0.9 [facility] Comment on above: Result Comment: Aspen ture Granulocyte Count (IG) includes promyelocytes, myelocytes and metamyelocytes but does not include bands. Percent differential counts (%) should be interpreted in the context of the absolute cell counts (cells/UL). Performed By: #### 5 7021-8 #### SANTOSH BAI (40190) [facility] ([facility]) [address] [place] [address] Lymphocytes (Bld) [#/Vol] 0.89 x10*3/uL Low 1.20-4.80 [facility] Comment on above: Performed By: #### 5 7021-8 #### SANTOSH BAI (34559) [facility] ([facility]) [address] [place] [id number] Lymphocytes/100 WBC (Bld) 11.4 % Normal 13.0-44.0 [facility] Comment on above: Performed By: #### 5 7021-8 #### SANTOSH BAI (81754) [facility] ([facility]) [address] [place] [id number] MCH (RBC) [Entitic mass] 31.0 pg Normal 26.0-34.0 [facility] Comment on above: Performed By: #### 5 7021-8 #### SANTOSH BAI (68258) [facility] ([facility]) [address] [place] [address] MCHC (RBC) [Mass/Vol] 32.5 g/dL Normal 32.0-36.0 [facility] Comment on above: Performed By: #### 5 7021-8 #### SANTOSH BAI (98041) [facility] ([facility]) [address] [place] [address] MCV (RBC) [Entitic vol] 95 fL Normal 80-100 [facility] Comment on above: Performed By: #### 5 7021-8 #### SANTOSH BAI (16402) [facility] ([facility]) [address] [place] [address] Monocytes (Bld) [#/Vol] 0.24 x10*3/uL Normal 0.10-1.00 [facility] Comment on above: Performed By: #### 5 7021-8 #### SANTOSH BAI ([id number]) [facility] ([facility]) [address] [place] [id number] Monocytes/100 WBC (Bld) 3.1 % Normal 2.0-10.0 [facility] Comment on above: Performed By: #### 5 7021-8 #### SANTOSH BAI (46142) [facility] ([facility]) [address] [place] [id number] Neutrophils (Bld) [#/Vol] 6.64 x10*3/uL Normal 1.20-7.70 [facility] Comment on above: Result Comment: Perc ent differential counts (%) should be interpreted in the context of the absolute cell counts (cells/uL). Performed By: #### 5 7021-8 #### SANTOSH BAI (58796) [facility] ([facility]) [address] [place] [address] Neutrophils/100 WBC (Bld) 84.8 % Normal 40.0-80.0 [facility] Comment on above: Performed By: #### 5 7021-8 #### SANTOSH BAI (77625) [facility] ([facility]) [address] [place] [id number] Nucleated RBC/100 WBC (Bld) [Ratio] 0.0 /100 WBCs Normal 0.0-0.0 [facility] Comment on above: Performed By: #### 5 7021-8 #### SANTOSH BAI (08349) [facility] ([facility]) [address] [place] [address] Platelets (Bld) [#/Vol] 303 x10*3/uL Normal 150-450 [facility] Comment on above: Performed By: #### 5 7021-8 #### SANTOSH BAI (11894) [facility] ([facility]) [address] [place] [address] RBC (Bld) [#/Vol] 4.23 x10*6/uL Normal 4.00-5.20 [facility] Comment on above: Performed By: #### 5 7021-8 #### SANTOSH BAI (59346) [facility] ([facility]) [address] [place] [id number] WBC (Bld) [#/Vol] 7.8 x10*3/uL Normal 4.4-11.3 [facility] Comment on above: Performed By: #### 5 7021-8 #### SANTOSH BAI (31429) [facility] ([facility]) [address] [place] [id number] [address] ABDOMEN PELVIS W IV CONTR William 12-15-2023 CT ABDOMEN PELVIS W IV CONTRAST Interpreted By: Allyson Schultz, STUDY: CT ABDOMEN PELVIS W IV CONTRAST; CT LUMBAR SPINE W IV CONTRAST; 12/15/2023 7:50 pm INDICATION: Signs/Symptoms:h/o spinal stim c/b infections with wound vac in place, pain to surrounding areas radiating to flanks. COMPARISON: 12/07/2023 CT abdomen/pelvis ACCESSION NUMBER(S): [id number]; [id number] ORDERING CLINICIAN: PABLO GERONIMO TECHNIQUE: Contiguous axial [...] Allyson Schultz 12/15/2023 8:37 PM Dictation workstation: [id number] [facility] CT LUMBAR SPINE W IV RAH Fishman 12-15-2023 CT LUMBAR SPINE W IV CONTRAST Interpreted By: Allyson Schultz, STUDY: CT ABDOMEN PELVIS W IV CONTRAST; CT LUMBAR SPINE W IV CONTRAST; 12/15/2023 7:50 pm INDICATION: Signs/Symptoms:h/o spinal stim c/b infections with wound vac in place, pain to surrounding areas radiating to flanks. COMPARISON: 12/07/2023 CT abdomen/pelvis ACCESSION NUMBER(S): [id number]; [id number] ORDERING CLINICIAN: PABLO GERONIMO TECHNIQUE: Contiguous axial [...] Allyson Schultz 12/15/2023 8:37 PM Dictation workstation: [id number] Normal [facility] Comprehensive metabolic 2000 panelon 12-15-2023 Albumin BCP dye [Mass/Vol] 4.2 g/dL Normal 3.4-5.0 [facility] Comment on above: Performed By: #### 2 4323-8 #### SANTOSH BAI ([id number]) [facility] ([facility]) [address] [place] [address] ALP [Catalytic activity/Vol] 79 U/L Normal 33-110 [facility] Comment on above: Performed By: #### 2 4323-8 #### SANTOSH BAI (29606) [facility] ([facility]) [address] [place] [address] ALT With P-5'-P [Catalytic activity/Vol] 21 U/L Normal 7-45 [facility] Comment on above: Result Comment: Katia ents treated with Sulfasalazine may generate falsely decreased results for ALT. Performed By: #### 2 4323-8 #### SANTOSH BAI ([id number]) [facility] ([facility]) [address] [place] [address] Anion gap [Moles/Vol] 11 mmol/L Normal 10-20 [facility] Comment on above: Performed By: #### 2 4323-8 #### SANTOSH BAI (69297) [facility] ([facility]) [address] [place] [address] AST With P-5'-P [Catalytic activity/Vol] 18 U/L Normal 9-39 [facility] Comment on above: Performed By: #### 2 4323-8 #### SANTOSH BAI ([id number]) [facility] ([facility]) [address] [place] [address] Bilirubin [Mass/Vol] 0.2 mg/dL Normal 0.0-1.2 [facility] Comment on above: Performed By: #### 2 4322-8 #### SANTOSH BAI ([id number]) [facility] ([facility]) [address] [place] [address] Calcium [Mass/Vol] 8.5 mg/dL Low 8.6-10.3 [facility] Comment on above: Performed By: #### 2 432-8 #### SANTOSH BAI ([id number]) [facility] ([facility]) [address] [place] [address] Chloride [Moles/Vol] 105 mmol/L Normal 98-107 [facility] Comment on above: Performed By: #### 2 4323-8 #### SANTOSH BAI ([id number]) [facility] ([facility]) [address] [place] [address] CO2 [Moles/Vol] 24 mmol/L Normal 21-32 [facility] Comment on above: Performed By: #### 2 4323-8 #### SANTOSH BAI ([id number]) [facility] ([facility]) [address] [place] [address] Creatinine [Mass/Vol] 0.73 mg/dL Normal 0.50-1.05 [facility] Comment on above: Performed By: #### 2 4323-8 #### SANTOSH BAI ([id number]) [facility] ([facility]) [address] [place] [address] GFR/1.73 sq M.predicted MDRD (S/P/Bld) [Vol rate/Area] mL/min/{1.73_m2} Normal >60 [facility] Comment on above: Result Comment: Calc ulations of estimated GFR are performed using the 2020 CKD-EPI Study Refit equation without the race variable for the IDMS-Traceable creatinine methods. https://jasn.asnjournals.org/content/early//ASN.91167 61676 Performed By: #### 2 4323-8 #### SANTOSH BAI ([id number]) [facility] ([facility]) [address] [place] [address] Glucose [Mass/Vol] 114 mg/dL High 74-99 [facility] Comment on above: Performed By: #### 2 4323-8 #### SANTOSH BAI ([id number]) [facility] ([facility]) [address] [place] [address] Potassium [Moles/Vol] 4.5 mmol/L Normal 3.5-5.3 [facility] Comment on above: Performed By: #### 2 4323-8 #### SANTOSH BAI ([id number]) [facility] ([facility]) [address] [place] [address] Protein [Mass/Vol] 7.2 g/dL Normal 6.4-8.2 [facility] Comment on above: Performed By: #### 2 4323-8 #### SANTOSH BAI ([id number]) [facility] ([facility]) [address] [place] [address] Sodium [Moles/Vol] 135 mmol/L Low 136-145 [facility] Comment on above: Performed By: #### 2 4323-8 #### SANTOSH BAI ([id number]) [facility] ([facility]) [address] [place] [address] Urea nitrogen [Mass/Vol] 12 mg/dL Normal 6-23 [facility] Comment on above: Performed By: #### 2 4323-8 #### SANTOSH BAI ([id number]) [facility] ([facility]) [address] [place] [id number] Magnesiumon 12-15-2023 Magnesium [Mass/Vol] 1.90 mg/dL Normal 1.60-2.40 [facility] Comment on above: Performed By: #### 1 9123-9 #### SANTOSH BAI ([id number]) [facility] ([facility]) [address] [place] [address] PT and aPTT panel Coag (PPP) on 12-15-2023 aPTT Coag (PPP) [Time] 31 s Normal 27-38 [facility] Comment on above: Order Comment: The A PTT is no longer used for monitoring Unfractionated Heparin Therapy. For monitoring Heparin Therapy, use the Heparin Assay. Performed By: #### 3 4529-8 #### SANTOSH BAI ([id number]) [facility] ([facility]) [address] [place] [id number] INR Coag (PPP) [Relative time] 0.9 Normal 0.9-1.1 [facility] Comment on above: Order Comment: The A PTT is no longer used for monitoring Unfractionated Heparin Therapy. For monitoring Heparin Therapy, use the Heparin Assay. Performed By: #### 3 4529-8 #### SANTOSH BAI ([id number]) [facility] ([facility]) [address] [place] [id number] PT Coag (PPP) [Time] 10.5 s Normal 9.8-12.8 [facility] Comment on above: Order Comment: The A PTT is no longer used for monitoring Unfractionated Heparin Therapy. For monitoring Heparin Therapy, use the Heparin Assay. Performed By: #### 3 4529-8 #### SANTOSH BAI ([id number]) [facility] ([facility]) [address] [place] [id number] ED Note-Physicianon 12-14-19 ED Note-Physician ED Note-Physician [...] spine on Saturday. This was performed at [facility]. She states this was due to an [...] strongly recommended that the patient follow-up with [facility]. She states she does not want to drive all the way to [place]. I discussed with her she might want to contact them and see if she can be followed closer such as the [facility]. I discussed the discharge diagnosis, plan of [...] each nostr (more content not included)... Normal [facility] Comment on above: Result Comment: Elec tronically Signed By: Kristie Boss PA-C\.br\Date and Time Signed: 12/13/23 14:15 EDT\.br\Electronically Co-Signed By: Jorge Mcintosh DO\.br\Date and Time Co-Signed: 12/14/23 07:22 EDT ED Clinical Summaryon 2023 ED Clinical Summary ED Clinical Summary [place] [id number] ED Clinical Summary Person Information Name: JERAD TRACY Alesha/[facility] Age: 48 Years : 1975 Sex: Female Language: Cambodian PCP: Cheyanne Rincon Marital Status: Visit Id: [...] 12/13/2023 14:18:11 12/13/2023 14:18:11 12/13/2023 14:18:11 ADDRESS: [address] [place] [id number] PHYS DOC NOTES: MEDICAL INFORMATION: Prescriptions Given: New Medications [facility] [address], [address] [place], [place] [phone], [phone] fluticasone nasal (Flonase 0.05 mg/inh [place]) 2 Sprays Topical every day. each nostril. [...] 0. PATIENT EDUCATION INFORMATION: Instructions: Allergies, Adult, Tdre-vr-Qyue Follow up: With: Address: When: Cheyanne [address], [address], [place] [id number] Business (1) In 3 days 12/16/2023 DIAGNOSIS: 1:Allergic reaction to adhesive Normal [facility] ED Patient Summaryon 024 ED Patient Summary ED Patient Summary [address] [address] Patient Discharge Instructions Person Information Name: JERAD TRACY Age: 48 Years Arrival Date: 12/13/2023 13:34:05 Discharge Diagnosis: 1:Allergic reaction to adhesive Primary Care Physician: Cheyanne Rincon Provider Information Primary Provider: Jorge Mcintosh DO [employer] Kitchen:None The exam and treatment you received in the Emergency Department were for an urgent problem and are not intended as complete care. It is important that you follow up with a doctor, nurse practitioner, or physician?s insurance administrative assistant for ongoing care. If your symptoms become worse or you do not improve as expected and you are unable to reach your usual health care provider, you should return to the Emergency Department. We are available 24 hours a day. JERAD TRACY has been given the following list of patient education materials, prescriptions and follow-up instructions: Follow-up Instructions: With: Address: When: Cheyanne [address], [address], [address] [address] Business (1) In 3 days 12/16/2023 In the event that this physician does not participate in your insurance network, please consult with your insurance company to find a nearby participating provider. Patient Education Materials: Allergies, Adult, Oymp-jw-Tesr A MESSAGE TO ALL PATIENTS REGARDING OPIOIDS PRESCRIPTION OPIOIDS: WHAT YOU NEED TO KNOW Prescription opioids can be used to help relieve wugstjsm-cq-hzohxl pain and are often prescribed following a [...] be struggling with addiction, tell your health resident care provider and ask for guidance or [facility] Help (more content not included)... Normal [facility] CT HEAD WO IV CONTRASTon CT HEAD WO IV CONTRAST Normal [facility] ECG 12-LEADon 12-10-2023 ECG 12-LEAD Ventricular Rate 68 Atrial Rate 68 P-R Interval 126 QRS Duration 88 Q-T Interval 450 QTC Calculation(Bazett) 478 P [place] 39 R [place] 20 T [place] 12 QRS Count 12 Q Onset 217 P Onset 154 P Offset 201 T Offset 442 QTC Fredericia 469 Diagnosis Normal sinus rhythm with sinus arrhythmia Normal ECG When compared with ECG of 09-DEC-2023 13:48, No significant change was found See ED provider note for full interpretation and clinical correlation Confirmed by Samantha Cain ([id number]) on 12/10/2023 1:59:40 AM Normal [facility] Urinalysis complete panel (U )on 12-10-2023 Appearance (U) Turbid Normal Clear [facility] Comment on above: Performed By: #### 2 4356-8 ####JOLENE Cantu ([id number])[facility] ([facility])[address] [place] [address] Bilirubin (U) [Mass/Vol] Negative Normal NEGATIVE [facility] Comment on above: Performed By: #### 2 4356-8 ####JOLENE Cantu ([id number])[facility] ([facility])[address] [facility] [place] [address] Color (U) Yellow Normal Light-Yellow , Yellow, Dark-Yellow [facility] Comment on above: Performed By: #### 2 4356-8 ####JOLENE Cantu ([id number])[facility] ([facility])[address] [place] [address] Glucose Auto test strip (U) [Mass/Vol] Normal Normal Normal [facility] Comment on above: Performed By: #### 2 4356-8 ####JOLENE Cantu ([id number])[facility] ([facility])[address] [place] [address] Ketones (U) [Mass/Vol] 10 (1+) Abnormal NEGATIVE [facility] Comment on above: Performed By: #### 2 4356-8 ####JOLENE Cantu ([id number])[facility] ([facility])[address] [facility] [place] [address] Leukocyte esterase Auto test strip Ql (U) 25 Robert/???L Abnormal NEGATIVE [facility] Comment on above: Performed By: #### 2 4356-8 ####JOLENE Cantu ([id number])[facility] ([facility])[address] [place] [address] Nitrite Auto test strip Ql (U) Negative Normal NEGATIVE [facility] Comment on above: Performed By: #### 2 4356-8 ####JOLENE Cantu ([id number])[facility] ([facility])[address] [place] [address] pH (U) 6.0 [pH] Normal 5.0, 5.5, 6.0, 6.5, 7.0, 7.5, 8.[address] [facility] Comment on above: Performed By: #### 2 4356-8 ####JOLENE Cantu ([id number])[facility] ([facility])[address] [place] [address] Protein (U) [Mass/Vol] 50 (1+) Abnormal NEGAT ALEXANDRE, 10 (TRACE), 20 (TRACE) [facility] Comment on above: Performed By: #### 2 4356-8 ####JOLENE Cantu ([id number])[facility] ([facility])[address] [place] [address] RBC (U) [#/Vol] Negative Normal NEGATIVE [facility] Comment on above: Performed By: #### 2 4356-8 ####JOLENE Cantu ([id number])[facility] ([facility])[address] [place] [address] Specific gravity (U) [Rel density] 1.035 Normal 1.005-1.[address] [facility] Comment on above: Performed By: #### 2 4356-8 ####JOLENE Cantu ([id number])[facility] ([facility])[address] [place] [address] Urobilinogen (U) [Mass/Vol] 4 (2+) Abnormal Normal [facility] Comment on above: Result Comment: Some pigments and medications may cause a false positive urobilinogen. Performed By: #### 2 4356-8 ####JOLENE Cantu ([id number])[facility] ([facility])[address] [place] [address] Urinalysis microscopic panel Auto Ql (U)on 12-10-2023 Calcium oxalate crystals Computer assisted (U) [#/Area] 4+ /HPF Abnormal NONE, 1+ [facility] Comment on above: Performed By: #### 5 3065-8 ####JOLENE Cantu ([id number])[facility] ([facility])[address] [place] [address] Epithelial cells.squamous Auto (Urine sed) [#/Area] 10-25 (FEW) Normal Reference range not established. [facility] Comment on above: Performed By: #### 5 3315-8 ####JOLENE CASTROER L ([id number])[facility] ([facility])[address] [place] [address] Mucus Auto (Urine sed) [#/Area] 4+ /LPF Normal Reference range not established. [facility] Comment on above: Performed By: #### 5 3315-8 ####JOLENE RONQUILLO L ([id number])[facility] ([facility])[address] [place] [address] RBC Auto (Urine sed) [#/Area] 1-2 Normal NONE, 1-2, 3-[address] [facility] Comment on above: Performed By: #### 5 3315-8 ####JOLENE RONQUILLO L ([id number])[facility] ([facility])[address] [place] [address] WBC Auto (Urine sed) [#/Area] 1-5 Normal 1-5, NONE [facility] Comment on above: Performed By: #### 5 3315-8 ####JOLENE Cantu ([id number])[facility] ([facility])[address] [place] [address] XR CHEST 2 VIEWSon 4 XR CHEST [address] [facility] CBC W Auto Differential pane l (Bld)on 12-09-2023 Basophils (Bld) [#/Vol] 0.01 x10*3/uL Normal 0.00-0.[address] [facility] Comment on above: Performed By: #### 5 7021-8 ####JOLENE NELSONTZAD L ([id number])[facility] ([facility])[address] [place] [address] Basophils/100 WBC (Bld) 0.2 % Normal 0.0-2.[address] [facility] Comment on above: Performed By: #### 5 7021-8 ####JOLENE WELSHMOTZER L ([id number])[facility] ([facility])[address] [place] [address] Eosinophils (Bld) [#/Vol] 0.28 x10*3/uL Normal 0.00-0.[address] [facility] Comment on above: Performed By: #### 5 7021-8 ####JOLENE Cantu ([id number])[facility] ([facility])[address] [place] [address] Eosinophils/100 WBC (Bld) 4.3 % Normal 0.0-6.[address] [facility] Comment on above: Performed By: #### 5 7021-8 ####JOLENE Cantu ([id number])[facility] ([facility])[address] [place] [address] Erythrocyte distribution width (RBC) [Ratio] 12.6 % Normal 11.5-14.[address] [facility] Comment on above: Performed By: #### 5 7021-8 ####JOLENE Cantu ([id number])[facility] ([facility])[address] [place] [address] Hematocrit (Bld) [Volume fraction] 35.8 % Low 36.0-46.[address] [facility] Comment on above: Performed By: #### 5 7021-8 ####JOLENE Cantu ([id number])[facility] ([facility])[address] [place] [address] Hemoglobin (Bld) [Mass/Vol] 12.5 g/dL Normal 12.0-16.[address] [facility] Comment on above: Performed By: #### 5 7021-8 ####JOLENE Cantu ([id number])[facility] ([facility])[address] [place] [address] Immature granulocytes (Bld) [#/Vol] 0.08 x10*3/uL Normal 0.00-0.[address] [facility] Comment on above: Performed By: #### 5 7021-8 ####JOLENE Cantu ([id number])[facility] ([facility])[address] [place] [address] Immature granulocytes/100 WBC (Bld) 1.2 % High 0.0-0.[address] [facility] Comment on above: Result Comment: Aspen ture Granulocyte Count (IG) includes promyelocytes, myelocytes and metamyelocytes but does not include bands. Percent differential counts (%) should be interpreted in the context of the absolute cell counts (cells/UL). Performed By: #### 5 7021-8 ####JOLENE Cantu ([id number])[facility] ([facility])[address] [place] [address] Lymphocytes (Bld) [#/Vol] 2.32 x10*3/uL Normal 1.20-4.[address] [facility] Comment on above: Performed By: #### 5 7021-8 ####JOLENE Cantu ([id number])[facility] ([facility])[address] [place] [address] Lymphocytes/100 WBC (Bld) 35.7 % Normal 13.0-44.[address] [facility] Comment on above: Performed By: #### 5 7021-8 ####JOLENE Cantu ([id number])[facility] ([facility])[address] [place] [address] MCH (RBC) [Entitic mass] 30.6 pg Normal 26.0-34.[address] [facility] Comment on above: Performed By: #### 5 7021-8 ####JOLENE Cantu ([id number])[facility] ([facility])[address] [place] [address] MCHC (RBC) [Mass/Vol] 34.9 g/dL Normal 32.0-36.0 [facility] Comment on above: Performed By: #### 5 7021-8 ####JOLENE RONQUILLO L ([id number])[facility] ([facility])[address] [place] [address] MCV (RBC) [Entitic vol] 88 fL Normal 80-[address] [facility] Comment on above: Performed By: #### 5 7021-8 ####JOLENE Cantu ([id number])[facility] ([facility])[address] [place] [address] Monocytes (Bld) [#/Vol] 0.52 x10*3/uL Normal 0.10-1.[address] [facility] Comment on above: Performed By: #### 5 7021-8 ####JOLENE WELSHMOTZER L (59657)[facility] ([facility])[address] [place] [address] Monocytes/100 WBC (Bld) 8.0 % Normal 2.0-10.[address] [facility] Comment on above: Performed By: #### 5 7021-8 ####JOLENE WELSHMOTZER L (35375)[facility] ([facility])[address] [place] [address] Neutrophils (Bld) [#/Vol] 3.29 x10*3/uL Normal 1.20-7.[address] [facility] Comment on above: Result Comment: Perc ent differential counts (%) should be interpreted in the context of the absolute cell counts (cells/uL). Performed By: #### 5 7021-8 ####JOLENE WELSHMOTZER L ([id number])[facility] ([facility])[address] [place] [address] Neutrophils/100 WBC (Bld) 50.6 % Normal 40.0-80.[address] [facility] Comment on above: Performed By: #### 5 7021-8 ####JOLENE WELSHMOALEXUSER L ([id number])[facility] ([facility])[address] [place] [address] Nucleated RBC/100 WBC (Bld) [Ratio] 0.0 /100 WBCs Normal 0.0-0.[address] [facility] Comment on above: Performed By: #### 5 7021-8 ####JOLENE WELSHMOTZER L (46355)[facility] ([facility])[address] [place] [address] Platelets (Bld) [#/Vol] 295 x10*3/uL Normal 150-[address] [facility] Comment on above: Performed By: #### 5 7021-8 ####JOLENE WELSHMOTZER L ([id number])[facility] ([facility])[address] [place] [address] RBC (Bld) [#/Vol] 4.09 x10*6/uL Normal 4.00-5.20 [facility] Comment on above: Performed By: #### 5 7021-8 ####JOLENE Cantu ([id number])[facility] ([facility])[address] [place] [address] WBC (Bld) [#/Vol] 6.5 x10*3/uL Normal 4.4-11.3 [facility] Comment on above: Performed By: #### 5 7021-8 ####JOLENE Cantu ([id number])[facility] ([facility])[address] [place] [address] Comprehensive metabolic 2000 panelon 12-09-2023 Albumin BCP dye [Mass/Vol] 4.0 g/dL Normal 3.4-5.[address] [facility] Comment on above: Performed By: #### 2 4323-8 ####JOLENE Cantu ([id number])[facility] ([facility])[address] [place] [address] ALP [Catalytic activity/Vol] 87 U/L Normal 33-[address] [facility] Comment on above: Performed By: #### 2 4323-8 ####JOLENE Cantu (81609)[facility] ([facility])[address] [place] [address] ALT With P-5'-P [Catalytic activity/Vol] 24 U/L Normal 7-[address] [facility] Comment on above: Result Comment: Katia ents treated with Sulfasalazine may generate falsely decreased results for ALT. Performed By: #### 2 4323-8 ####JOLENE Cantu (75459)[facility] ([facility])[address] [place] [address] Anion gap [Moles/Vol] 14 mmol/L Normal 10-20 [facility] Comment on above: Performed By: #### 2 4323-8 ####JOLENE Cantu ([id number])[facility] ([facility])[address] [facility] [place] [address] AST With P-5'-P [Catalytic activity/Vol] 25 U/L Normal 9-[address] [facility] Comment on above: Performed By: #### 2 4323-8 ####JOLENE Cantu ([id number])[facility] ([facility])[address] [place] [address] Bilirubin [Mass/Vol] 0.3 mg/dL Normal 0.0-1.2 [facility] Comment on above: Performed By: #### 2 4323-8 ####JOLENE Cantu (48541)[facility] ([facility])[address] [place] [address] Calcium [Mass/Vol] 8.7 mg/dL Normal 8.6-10.6 [facility] Comment on above: Performed By: #### 2 4323-8 ####JOLENE Cantu ([id number])[facility] ([facility])[address] [place] [address] Chloride [Moles/Vol] 105 mmol/L Normal 98-107 [facility] Comment on above: Performed By: #### 2 4323-8 ####JOLENE Cantu ([id number])[facility] ([facility])[address] [place] [address] CO2 [Moles/Vol] 25 mmol/L Normal 21-32 [facility] Comment on above: Performed By: #### 2 4323-8 ####JOLENE Cantu ([id number])[facility] ([facility])[address] [place] [address] Creatinine [Mass/Vol] 0.82 mg/dL Normal 0.50-1.05 [facility] Comment on above: Performed By: #### 2 4323-8 ####JOLENE Cantu ([id number])[facility] ([facility])[address] [facility] [place] [address] Glomerular filtration rate/1.73 sq M.predicted 89 mL/min/1.73m*2 Normal >[address] [facility] Comment on above: Result Comment: Calc ulations of estimated GFR are performed using the 2020 CKD-EPI Study Refit equation without the race variable for the IDMS-Traceable creatinine methods.https://jasn.asnjournals.org/content//A SN.0820647361 Performed By: #### 2 4323-8 ####JOLENE Cantu ([id number])[facility] ([facility])[address] [place] [address] Glucose [Mass/Vol] 103 mg/dL High 74-99 [facility] Comment on above: Performed By: #### 2 4323-8 ####JOLENE Cantu (60781)[facility] ([facility])[address] [place] [address] Potassium [Moles/Vol] 3.5 mmol/L Normal 3.5-5.3 [facility] Comment on above: Performed By: #### 2 4323-8 ####JOLENE RONQUILLO L ([id number])[facility] ([facility])[address] [place] [address] Protein [Mass/Vol] 7.1 g/dL Normal 6.4-8.2 [facility] Comment on above: Performed By: #### 2 4323-8 ####JOLENE RONQUILLO L (20977)[facility] ([facility])[address] [place] [address] Sodium [Moles/Vol] 140 mmol/L Normal 136-145 [facility] Comment on above: Performed By: #### 2 4323-8 ####JOLENE RONQUILLO L (09983)[facility] ([facility])[address] [place] [address] Urea nitrogen [Mass/Vol] 9 mg/dL Normal 6-[address] [facility] Comment on above: Performed By: #### 2 4323-8 ####JOLENE RONQUILLO L (94851)[facility] ([facility])[address] [place] [address] ECG 12-LEADon 12-09-2023 ECG 12-LEAD Ventricular Rate 70 Atrial Rate 70 P-R Interval 128 QRS Duration 86 Q-T Interval 434 QTC Calculation(Bazett) 468 P [place] 47 R [place] 35 T [place] 39 QRS Count 11 Q Onset 217 P Onset 153 P Offset 205 T Offset 434 QTC Fredericia 457 Diagnosis Normal sinus rhythm Low voltage QRS Borderline ECG When compared with ECG of 07-DEC-2023 17:07, No significant change was found See ED provider note for full interpretation and clinical correlation Confirmed by Germaine Diaz ([id number]) on 12/13/2023 5:09:16 PM Normal [facility] Troponin I.cardiac panelon 0 12-09-2023 Tropinin I.cardiac panel High sensitivity method <3 Normal 0-[address] [facility] Comment on above: Order Comment: Less than 99th percentile of normal range cutoff-Female and children under 18 years old <35 ng/L; Male <54 ng/L: NegativeRepeat testing should be performed if clinically indicated.Female and children under 18 years old 35-120 ng/L; Male 54-120 ng/L:Consistent with possible cardiac damage and possible increased clinicalrisk. Serial measurements may help to assess extent of myocardial damage.>120 ng/L: Consistent with cardiac damage, increased clinical risk andmyocardial infarction. Serial measurements may help assess extent ofmyocardial damage.NOTE: Children less than 1 year old may have higher baseline troponinlevels and results should be interpreted in conjunction with the overallclinical context.NOTE: Troponin I testing is performed using a differenttesting methodology at [facility] than at [facility]. Direct result comparisons should onlybe made within the same method. Performed By: #### 8 9577-1 ####JOLENE Cantu ([id number])[facility] HOSP[facility])[address] [place] [address] XR ELBOW RIGHT 1-2 VIEWSon 0 12-09-2023 XR ELBOW RIGHT 1-2 VIEWS Interpreted By: Ernestina Bond, STUDY: Right elbow, two views. INDICATION: Signs/Symptoms:Fall with injury. COMPARISON: 09/16/2023. ACCESSION NUMBER(S): [id number] ORDERING CLINICIAN: JAROCHO TRONCOSO FINDINGS: No acute fracture or malalignment. No elbow joint effusion or abnormal fat pad elevation. No significant degenerative changes. Soft tissues are unremarkable. IMPRESSION: 1. Unremarkable radiographic evaluation of the right elbow. MACRO: None. Signed by: Ernestina Bond 12/09/2023 2:36 PM Dictation workstation: [id number] [place] [address] XR HAND RIGHT 3+ VIEWSon XR HAND RIGHT 3+ VIEWS Interpreted By: Ernestina Bond, STUDY: Right hand, 3 views. INDICATION: Signs/Symptoms:Fall with right thumb/hand injury. COMPARISON: None. ACCESSION NUMBER(S): [id number] ORDERING CLINICIAN: JAROCHO TRONCOSO FINDINGS: No acute [...] Ernestina Bond 12/09/2023 2:36 PM Dictation workstation: [address] XR SHOULDER RIGHT 2+ VIEWSon 12-09-2023 XR SHOULDER RIGHT 2+ VIEWS Interpreted By: Ernestina Bond, STUDY: Right shoulder, five views. INDICATION: Signs/Symptoms:Injury to right shoulder. COMPARISON: Chest radiograph 12/07/2023. ACCESSION NUMBER(S): [id number] ORDERING CLINICIAN: JAROCHO TRONCOSO FINDINGS: No acute fracture or malalignment. No significant degenerative changes. Soft tissues are unremarkable. Remote healed fracture deformity of the mid right clavicle noted with mild malunion. IMPRESSION: 1. Unremarkable right shoulder radiographs. 2. Remote healed fracture deformity of the mid right clavicle with mild malunion. MACRO: None. Signed by: Ernestina Bond 12/09/2023 2:34 PM Dictation workstation: [address] Bilirubin.glucuronidated+Kenan irubin.albumin boundon 12-07-2023 Bilirubin.direct [Mass/Vol] 0.1 mg/dL Normal 0.0-0.[address] [facility] Comment on above: Performed By: #### 1 968-7 ####JOLENE Cantu ([id number])[facility] ([facility])[address] [place] [address] CBC W Auto Differential pane l (Bld)on 12-07-2023 Basophils (Bld) [#/Vol] 0.01 x10*3/uL Normal 0.00-0.[address] [facility] Comment on above: Performed By: #### 5 7021-8 ####JOLENE Cantu ([id number])[facility] ([facility])[address] [place] [address] Basophils/100 WBC (Bld) 0.1 % Normal 0.0-2.[address] [facility] Comment on above: Performed By: #### 5 7021-8 ####JOLENE Cantu ([id number])[facility] ([facility])[id number] [place] [address] Eosinophils (Bld) [#/Vol] 0.27 x10*3/uL Normal 0.00-0.[address] [facility] Comment on above: Performed By: #### 5 7021-8 ####JOLENE Cantu ([id number])[facility] ([facility])[address] [place] [address] Eosinophils/100 WBC (Bld) 3.8 % Normal 0.0-6.[address] [facility] Comment on above: Performed By: #### 5 7021-8 ####JOLENE Cantu ([id number])[facility] ([facility])[address] [place] [address] Erythrocyte distribution width (RBC) [Ratio] 13.0 % Normal 11.5-14.[address] [facility] Comment on above: Performed By: #### 5 7021-8 ####JOLENE Cantu ([id number])[facility] ([facility])[address] [place] [address] Hematocrit (Bld) [Volume fraction] 41.4 % Normal 36.0-46.[address] [facility] Comment on above: Performed By: #### 5 7021-8 ####JOLENE Cantu ([id number])[facility] ([facility])[address] [place] [address] Hemoglobin (Bld) [Mass/Vol] 13.4 g/dL Normal 12.0-16.[address] [facility] Comment on above: Performed By: #### 5 7021-8 ####JOLENE Cantu ([id number])[facility] ([facility])[address]40 [place] [address] Immature granulocytes (Bld) [#/Vol] 0.02 x10*3/uL Normal 0.00-0.[address] [facility] Comment on above: Performed By: #### 5 7021-8 ####JOLENE Cantu ([id number])[facility] ([facility])[address] [place] [address] Immature granulocytes/100 WBC (Bld) 0.3 % Normal 0.0-0.[address] [facility] Comment on above: Result Comment: Aspen ture Granulocyte Count (IG) includes promyelocytes, myelocytes and metamyelocytes but does not include bands. Percent differential counts (%) should be interpreted in the context of the absolute cell counts (cells/UL). Performed By: #### 5 7021-8 ####JOLENE Cantu ([id number])[facility] ([facility])[address] [place] [address] Lymphocytes (Bld) [#/Vol] 1.45 x10*3/uL Normal 1.20-4.[address] [facility] Comment on above: Performed By: #### 5 7021-8 ####JOLENE Cantu ([id number])[facility] ([facility])[address]31 [place] [address] Lymphocytes/100 WBC (Bld) 20.3 % Normal 13.0-44.[address] [facility] Comment on above: Performed By: #### 5 7021-8 ####JOLENE Cantu ([id number])[facility] ([facility])[address]237 [place] [address] MCH (RBC) [Entitic mass] 30.6 pg Normal 26.0-34.[address] [facility] Comment on above: Performed By: #### 5 7021-8 ####JOLENE Cantu ([id number])[facility] ([facility])[address] [place] [address] MCHC (RBC) [Mass/Vol] 32.4 g/dL Normal 32.0-36.0 [facility] Comment on above: Performed By: #### 5 7021-8 ####JOLENE Cantu ([id number])[facility] ([facility])[address]60 [place] [address] MCV (RBC) [Entitic vol] 95 fL Normal 80-[address] [facility] Comment on above: Performed By: #### 5 7021-8 ####JOLENE Cantu ([id number])[facility] ([facility])[address]49 [place] [address] Monocytes (Bld) [#/Vol] 0.52 x10*3/uL Normal 0.10-1.[address] [facility] Comment on above: Performed By: #### 5 7021-8 ####JOLENE Cantu ([id number])[facility] ([facility])[address]461 [place] [address] Monocytes/100 WBC (Bld) 7.3 % Normal 2.0-10.[address] [facility] Comment on above: Performed By: #### 5 7021-8 ####JOLENE Cantu ([id number])[facility] ([facility])[address]16 [place] [address] Neutrophils (Bld) [#/Vol] 4.87 x10*3/uL Normal 1.20-7.[address] [facility] Comment on above: Result Comment: Perc ent differential counts (%) should be interpreted in the context of the absolute cell counts (cells/uL). Performed By: #### 5 7021-8 ####JOLENE Cantu ([id number])[facility] ([facility])[address]69 [place] [address] Neutrophils/100 WBC (Bld) 68.2 % Normal 40.0-80.[address] [facility] Comment on above: Performed By: #### 5 7021-8 ####JOLENE Cantu ([id number])[facility] ([facility])[address] [place] [address] Nucleated RBC/100 WBC (Bld) [Ratio] 0.0 /100 WBCs Normal 0.0-0.[address] [facility] Comment on above: Performed By: #### 5 7021-8 ####JOLENE Cantu ([id number])[facility] ([facility])[id number] [place] [address] Platelets (Bld) [#/Vol] 341 x10*3/uL Normal 150-[address] [facility] Comment on above: Performed By: #### 5 7021-8 ####JOLENE Cantu ([id number])[facility] ([facility])[address] [place] [address] RBC (Bld) [#/Vol] 4.38 x10*6/uL Normal 4.00-5.20 [facility] Comment on above: Performed By: #### 5 7021-8 ####JOLENE Cantu ([id number])[facility] ([facility])[address] [place] [address] WBC (Bld) [#/Vol] 7.1 x10*3/uL Normal 4.4-11.3 [facility] Comment on above: Performed By: #### 5 7021-8 ####JOLENE Cantu ([id number])[facility] ([facility])[address] [place] [address] ABDOMEN PELVIS W IV CONTR William 12-07-2023 CT ABDOMEN PELVIS W IV CONTRAST Normal [facility] CT LUMBAR SPINE WO IV CONTRA STon 12-07-2023 CT LUMBAR SPINE WO IV CONTRAST Normal [facility] Choriogonadotropin.beta subu niton 12-07-2023 HCG.beta subunit Qn m[IU]/mL Normal <5 [facility] Comment on above: Order Comment: Total HCG measurement is performed using the Siemens [facility] immunoassay which detects intact HCG and free beta HCG subunit. This test is not indicated for use as a tumor marker. HCG testing is performed using a different test methodology at [facility] than other [facility]. Direct result comparison should only be made within the same method. Performed By: #### 2 1198-7 ####JOLENE Cantu ([id number])[facility] ([facility])[address] [place] [address] Comprehensive metabolic 2000 panelon 12-07-2023 Albumin BCP dye [Mass/Vol] 4.1 g/dL Normal 3.4-5.[address] [facility] Comment on above: Performed By: #### 2 4323-8 ####JOLENE Cantu ([id number])[facility] ([facility])[address]6 [place] [address] ALP [Catalytic activity/Vol] 76 U/L Normal 33-[address] [facility] Comment on above: Performed By: #### 2 4323-8 ####JOLENE Cantu ([id number])[facility] ([facility])[address]254 [place] [address] ALT With P-5'-P [Catalytic activity/Vol] 32 U/L Normal 7-[address] [facility] Comment on above: Result Comment: Katia ents treated with Sulfasalazine may generate falsely decreased results for ALT. Performed By: #### 2 4323-8 ####JOLENE Cantu ([id number])[facility] ([facility])[address]375 [place] [address] Anion gap [Moles/Vol] 12 mmol/L Normal 10-20 [facility] Comment on above: Performed By: #### 2 4323-8 ####JOLENE Cantu ([id number])[facility] ([facility])[address]261 [place] [address] AST With P-5'-P [Catalytic activity/Vol] 28 U/L Normal 9-[address] [facility] Comment on above: Performed By: #### 2 4323-8 ####JOLENE Cantu ([id number])[facility] ([facility])[address]75 [place] [address] Bilirubin [Mass/Vol] 0.4 mg/dL Normal 0.0-1.2 [facility] Comment on above: Performed By: #### 2 4323-8 ####JOLENE Cantu ([id number])[facility] ([facility])[address]201 [place] [address] Calcium [Mass/Vol] 8.8 mg/dL Normal 8.6-10.6 [facility] Comment on above: Performed By: #### 2 4323-8 ####JOLENE Cantu ([id number])[facility] ([facility])[address]503 [place] [address] Chloride [Moles/Vol] 104 mmol/L Normal 98-107 [facility] Comment on above: Performed By: #### 2 4323-8 ####JOLENE Cantu ([id number])[facility] ([facility])[address] [place] [address] CO2 [Moles/Vol] 27 mmol/L Normal 21-32 [facility] Comment on above: Performed By: #### 2 4323-8 ####JOLENE Cantu ([id number])[facility] ([facility])[address]28 [place] [address] Creatinine [Mass/Vol] 0.81 mg/dL Normal 0.50-1.05 [facility] Comment on above: Performed By: #### 2 4323-8 ####JOLENE Cantu ([id number])[facility] ([facility])[address]781 [place] [address] GFR/1.73 sq M.predicted MDRD (S/P/Bld) [Vol rate/Area] mL/min/{1.73_m2} Normal >[address] [facility] Comment on above: Result Comment: Calc ulations of estimated GFR are performed using the 2020 CKD-EPI Study Refit equation without the race variable for the IDMS-Traceable creatinine methods.https://jasn.asnjournals.org/content//A SN.5005415203 Performed By: #### 2 4323-8 ####JOLENE CASTROER L ([id number])[facility] ([facility])[address]672 [place] [address] Glucose [Mass/Vol] 98 mg/dL Normal 74-99 [facility] Comment on above: Performed By: #### 2 4323-8 ####JOLENE WELSHMOALEXUSER L ([id number])[facility] ([facility])[address] [place] [address] Potassium [Moles/Vol] 3.6 mmol/L Normal 3.5-5.3 [facility] Comment on above: Performed By: #### 2 4323-8 ####JOLENE WELSHMOTZER L (90496)[facility] ([facility])[address]273 [place] [address] Protein [Mass/Vol] 7.1 g/dL Normal 6.4-8.2 [facility] Comment on above: Performed By: #### 2 4323-8 ####JOLENE WELSHMOTZER L (51356)[facility] ([facility])[address]34 [place] [address] Sodium [Moles/Vol] 139 mmol/L Normal 136-145 [facility] Comment on above: Performed By: #### 2 4323-8 ####JOLENE SCHMOTZER L ([id number])[facility] ([facility])[address] [place] [address] Urea nitrogen [Mass/Vol] 12 mg/dL Normal 6-[address] [facility] Comment on above: Performed By: #### 2 4323-8 ####JOLENE WELSHMOTZER L ([id number])[facility] ([facility])[address]389 [place] [address] ECG 12-LEADon 12-07-2023 ECG 12-LEAD Ventricular Rate 76 Atrial Rate 76 P-R Interval 140 QRS Duration 84 Q-T Interval 432 QTC Calculation(Bazett) 486 P [place] 60 R [place] 59 T [place] 61 QRS Count 13 Q Onset 217 P Onset 147 P Offset 205 T Offset 433 QTC Fredericia 467 Diagnosis Normal sinus rhythm Possible Left atrial enlargement Prolonged QT Abnormal ECG When compared with ECG of 06-DEC-2023 16:27, No significant change was found See ED provider note for full interpretation and clinical correlation Confirmed by Marquis Calderón ([id number]) on 12/07/2023 9:49:06 PM Normal [facility] Triacylglycerol lipaseon Lipase [Catalytic activity/Vol] 30 U/L Normal 9-[address] [facility] Comment on above: Order Comment: Venip uncture immediately after or during the administration of Metamizole may lead to falsely low results. Testing should be performed immediately prior to Metamizole dosing. Performed By: #### 3 040-3 ####JOLENE Cantu ([id number])[facility] ([facility])[address] [place] [address] Troponin I.cardiac panelon 0 12-07-2023 Tropinin I.cardiac panel High sensitivity method <3 Normal 0-[address] [facility] Comment on above: Order Comment: Less than 99th percentile of normal range cutoff-Female and children under 18 years old <35 ng/L; Male <54 ng/L: NegativeRepeat testing should be performed if clinically indicated.Female and children under 18 years old 35-120 ng/L; Male 54-120 ng/L:Consistent with possible cardiac damage and possible increased clinicalrisk. Serial measurements may help to assess extent of myocardial damage.>120 ng/L: Consistent with cardiac damage, increased clinical risk andmyocardial infarction. Serial measurements may help assess extent ofmyocardial damage.NOTE: Children less than 1 year old may have higher baseline troponinlevels and results should be interpreted in conjunction with the overallclinical context.NOTE: Troponin I testing is performed using a differenttesting methodology at [facility] than at [facility]. Direct result comparisons should onlybe made within the same method. Performed By: #### 8 9577-1 ####JOLENE Cantu ([id number])[facility] ([facility])[address] [place] [id number] XR CHEST 2 VIEWSon 4 XR CHEST [address] [facility] ED Note-Physicianon 12-06-19 24 ED Note-Physician ED Note-Physician Basic Information Time Seen: Balbina Bryant M.D. 12/05/2023 19:02 Chief Complaint patient presents with surgical incision drainage and dehiscence that happened yesterday. denies fevers but experiencing nausea and chills. back surgery at [facility] 10/13 History of Present Illness The [...] and Complexity of Problems Differential Diagnosis: [] [facility] Data External documents reviewed: [] My EKG [...] Rosas In 3 days 12/08/2023 EDT [address] [facility], [facility] A [place] [phone] Business (1) Additional Instructions: Make sure to follow-up [...] kennedi, Topi (more content not included)... Normal [facility] Comment on above: Result Comment: Elec tronically Signed By: Annette Watkins, Balbina Sparks\.br\Date and Time Signed: 12/06/23 02:02 EDT MR LUMBAR SPINE W AND WO IV CONTRASTon 12-06-2023 MR LUMBAR SPINE W AND WO IV CONTRAST Normal [facility] ED Clinical Summaryon 2023 ED Clinical Summary ED Clinical Summary [place] [id number] ED Clinical Summary Person Information Name: JERAD TRACY Alesha/[facility] Age: 48 Years : 1975 Sex: Female Language: Cambodian PCP: Cheyanne Rincon Marital Status: Visit Id: [...] 12/05/2023 19:40:10 12/05/2023 19:40:10 12/05/2023 19:40:10 ADDRESS: [address] [place] [phone] PHYS DOC NOTES: MEDICAL INFORMATION: Prescriptions Given: [...] Follow up: With: Address: When: Cheyanne Rosas [address] [place] [address] A, [place] [phone] Business (1) In 3 days 12/08/2023 Comments: Make sure to follow-up with your back surgeon as discussed. Return to the emergency room if there is drainage from the wound, redness around the edge of the wound, fever or any new symptoms. DIAGNOSIS: 1:Visit for wound check; 2:Chronic back pain; Other chronic pain Normal [facility] ED Patient Summaryon 024 ED Patient Summary ED Patient Summary [address] [address] Patient Discharge Instructions Person Information Name: JERAD TRACY Age: 48 Years Arrival Date: 12/05/2023 17:36:20 Discharge Diagnosis: 1:Visit for wound check; 2:Chronic back pain; Other chronic pain Primary Care Physician: Cheyanne Rincon Provider Information Primary Provider: Balbina Bryant M.D. [employer] Kitchen:None The exam and treatment you received in the Emergency Department were for an urgent problem and are not intended as complete care. It is important that you follow up with a doctor, nurse practitioner, or physician?s insurance administrative assistant for ongoing care. If your symptoms [...] Instructions: With: Address: When: Cheyanne Rosas [address] [facility], [address], [address] [address] Business (1) In 3 days 12/08/2023 Comments: [...] opioids can be used to help relieve jswmairc-ho-huddxa pain and are often prescribed following a [...] Administration (www.fda.gov/Drugs/Re (more content not included)... Normal [facility] CT SPINE LUMBAR WITH CONTRAS Ton [...] consider dedicated adrenal imaging. Keke Beebe D.O.Workstation ID:[id number] Patient arrives ambulatory to triage with c/o back pain. Patient states she had a stimulator removed a month ago, just completed a 10 hour car ride and thinks that aggravated her back. A&Ox4. Normal [facility] IMPRESSION: 1. Nonspecific posterior lumbar subcutaneous fat stranding without discrete fluid collection. 2. 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 3. Incidental bilateral adrenal nodules (indeterminate on the basis of this examination); consider dedicated adrenal imaging. Keke Beebe D.O.Workstation ID:[id number] [facility] 12/04/2023 10:42 PM TECHNIQUE: CT SPINE LUMBAR WITH CONTRAST. INDICATION: BACK PAIN, . COMPARISON: None available. FINDINGS: Nonspecific stranding posterior lumbar subcutaneous fat. Moderate L4-5 degenerative disc disease, facet arthropathy, with central and bilateral neural foraminal stenoses. Anatomic alignment, preserved vertebral body height, and structurally intact posterior elements. Paraspinal soft tissues are otherwise unremarkable. Incidental bilateral adrenal nodules. [facility]ENTER[facility]ke Walker, - 12/04/2023 12/04/2023 10:42 PM TECHNIQUE: CT [...] consider dedicated adrenal imaging. Keke Beebe D.O.Workstation ID:[id number] [facility] Radiology Study observation (narrative) [facility] CT SPINE LUMBAR WITH CONTRAS TOrdered By: Keke Beebe on 12-04-2023 [employer] Work Phone: ED NOTESon 12-04-2023 [facility] Note ED Note: Last filed note HNO ID: [id number] Author: Cheyanne Powers RN Service: ? Author Type: Registered Nurse Filed: 12/04/23 2332 Note Text: Patient discharged to home, alert and oriented, skin warm, dry and pink. Denies needs and or questions. Will follow-up as directed, patient encouraged to return for worsening or new symptoms or other concerns. Normal [facility] Ed Note ED Note: Last filed note HNO ID: [id number] Author: Ilya Carrillo RN Service: ? Author Type: Registered Nurse Filed: 12/04/23 2240 Note Text: Pt to CT Normal [facility] ED PROVIDER NOTESon 12-04-19 [facility] Provider Note ED Provider Note: L ast filed note HNO ID: [id number] Author: Ben Urbina MD Service: Emergency Medicine [...] Her previous surgeries were done in the [place] area at the [facility]. Because of the severe pain she presents [...] Ben Urbina MD, 12/04/2023 10:14 PM Normal [facility] Ed Provider Note ED Provider Note: Pepe blas filed note HNO ID: [id number] Author: Nighat Bailey PA-C Service: Emergency Medicine Author Type: Physician Wagon Drill Operator Filed: 12/04/23 3391 Note Text: TRIAGE CHIEF COMPLAINT: Chief Complaint Patient presents with Back Pain HPI: Jerad [place] is a 48 year old female who presents to the emergency department with back pain. Patient reports tonight when she was in a car driving back home from [place] to [place]. Started to have severe low back pain [...] with her spine surgeon Dr. Adams at [facility] this Saturday. Pain is 9/10. REVIEW [...] Resource Strain: Low Risk (11/17/2023) Received from [facility] Overall Financial Resource Strain (CARDIA) Difficulty of Paying Living Expenses: Not hard at all Food Insecurity: Patient Declined (10/11/2023) Received from [facility] Hunger Vital Sign Worried About Running Out of Food in the Last Year: Patient declined Ran Out of Food in the Last Year: Patient declined Transportation Needs: No Transportation Needs (11/17/2023) Received from [facility] PRAPARE - Transportation Lack of Transportation (Medical): No Lack of Transportation (Non-Medical): No Physical Activity: Patient Declined (10/11/2023) Received from [facility] Exercise Vital Sign Days of Exercise per Week: Patient declined Minutes of Exercise per Session: Patient declined Stress: Patient Declined (10/11/2023) Received from [facility] Occupational Health - Occupational Stress Questionnaire Feeling of Stress : Patient declined Social Connections: Patient Declined (10/11/2023) Received from [facility] Social Connection and Isolation Panel [NHANES] Frequency of Communication with Friends and Family: Patient declined Frequency of Social Gatherings with Friends and Family: Patient declined Attends Druze Services: Patient declined Active Member of Clubs or Organizations: Patient declined Attends Club or Organization Meetings: Patient declined Marital Status: Patient declined Intimate Partner Violence: Patient Declined (10/11/2023) Received from [facility] Humiliation, Afraid, Rape, and Kick questionnaire Fear of Current or Ex-Partner: Patient declined Emotionally Abused: Patient declined Physically Abused: Patient declined Sexually Abused: Patient declined Housing Stability: Low Risk (11/17/2023) Received from [facility] Housing Stability Vital Sign Unable to Pay [...] SIGNS: Vitals: (more content not included)... Normal [facility] ED TRIAGEon 12-04-2023 [facility] Triage Note ED Triage Note: Last filed note HNO ID: [id number] Author: Rebecca Gómez RN Service: Emergency Medicine Author Type: Registered Nurse Filed: 12/04/23 5951 Note Text: Patient arrives ambulatory to triage with c/o back pain. Patient states she had a stimulator removed a month ago, just completed a 10 hour car ride and thinks that aggravated her back. A [facility] Center CT abdomen pelvis w conon CT abdomen pelvis w con [facility] [place] [address] CT Scan Report Signed Patient: Jerad Tracy MR#: [id number] 49 : 1975 Acct:[id number] Age/Sex: 48 / F ADM Date: 12/01/23 Loc: ER Room: Type: [facility] ER Attending Dr: Copies to: Vlad Bhandari [...] Idalia Juarez M.D.12/02/2023 8:41 AM Dictation Location: [place] [address] Transcribed By: [facility] 12/02/23 0841 Dictated By: Idalia Juarez MD 12/02/23 0826 Signed By: 12/02/23 0841 Normal [facility] US venous duplex LE RTon US venous duplex LE RT [facility] [place] [address] [place] [address] Ultrasound Report Signed Patient: Jerad [place] MR#: [id number] 49 : 1975 Acct:[id number] Age/Sex: 48 / F ADM Date: 12/01/23 Loc: ER Room: Type: [facility] ER Attending Dr: Ordering Provider: Vlad Bhandari [...] Declan Franco M.D.12/02/2023 9:08 AM Dictation Location: [place] [address] Tech: Abby Singh Transcribed By: BRYCE 12/02/23907 Dictated By: Declan Franco MD 12/02/23907 Signed By: 12/02/23907 Normal [facility] Alanine aminotransferase [En zymatic activity/volume] in Serum or PlasmaOrdered By: Vlad Bhandari on 12-01-2023 ALT [Catalytic activity/Vol] 22 U/L Normal [facility] Comment on above: Performed By: #### U HCG, ADDONUAPLUS #### [facility] [address] [place] [id number] [place] ALT [Catalytic activity/Vol] Alanine aminotransferase [Enzymatic activity/volume] in Serum or Plasma [facility] Albumin [Mass/volume] in Ser um or Plasma by Bromocresol green (BCG) dye binding methoOrdered By: Vlad Bhandari on 12-01-2023 Albumin BCG dye [Mass/Vol] 3.9 g/dL 3.5-5.7 [facility] Albumin BCG dye [Mass/Vol] Albumin [Mass/volume] in Serum or Plasma by Bromocresol green (BCG) dye binding metho 3.5-5.7 [facility] Alkaline phosphatase [Enzyma tic activity/volume] in Serum or PlasmaOrdered By: Vlad Bhandari on 12-01-2023 ALP [Catalytic activity/Vol] 67 U/L Normal [facility] Comment on above: Performed By: #### U HCG, ADDONUAPLUS #### [facility] [address] [place] [id number] [place] ALP [Catalytic activity/Vol] Alkaline phosphatase [Enzymatic activity/volume] in Serum or Plasma [facility] Appearance of UrineOrdered B y: Vlad Bhandari on 12-01-2023 Appearance (U) Urine appearance Clear [facility] Aspartate aminotransferase [ Enzymatic activity/volume] in Serum or PlasmaOrdered By: Vlad Bhandari on 12-01-2023 AST [Catalytic activity/Vol] 24 U/L Normal [facility] Comment on above: Performed By: #### U HCG, ADDONUAPLUS #### [facility] [address] [place] [address] AST [Catalytic activity/Vol] Aspartate aminotransferase [Enzymatic activity/volume] in Serum or Plasma [facility] Automated basophil %Ordered By: Vald Bhandari on 12-01-2023 Basophils/100 WBC (Bld) 0.3 % Normal . [facility] Comment on above: Performed By: #### U HCG, ADDONUAPLUS #### [address] Automated basophil countOrde red By: Vlad Bhandari on 12-01-2023 Basophils (Bld) [#/Vol] 0.0 10*3/uL Normal 0.0-0.2 [facility] Comment on above: Result Comment: PERF ORMED BY: [place] [address] PATHOLOGIST TUBE 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 JASON WILSON M.D. Performed By: #### U HCG, ADDONUAPLUS #### [address] Automated blood monocyte cou ntOrdered By: Vlad Bhandari on 12-01-2023 Monocytes (Bld) [#/Vol] 0.7 10*3/uL Normal 0.0-0.8 [facility] Comment on above: Performed By: #### U HCG, ADDONUAPLUS #### [facility] [address] [place] [address] Automated eosinophil %Ordere d By: Vlad Bhandari on 12-01-2023 Eosinophils/100 WBC (Bld) 3.3 % Normal . [facility] Comment on above: Performed By: #### U HCG, ADDONUAPLUS #### [address] Automated eosinophil countOr dered By: Vlad Bhandari on 12-01-2023 Eosinophils (Bld) [#/Vol] 0.3 10*3/uL Normal 0.0-0.45 [facility] Comment on above: Performed By: #### U HCG, ADDONUAPLUS #### [facility] [address] Automated monocyte %Ordered By: Vlad Tsejoon on 12-01-2023 Monocytes/100 WBC (Bld) 7.8 % Normal . [facility] Comment on above: Performed By: #### U HCG, ADDONUAPLUS #### [facility] [address] Automated neutrophil %Ordere d By: Vlad Elisabet on 12-01-2023 Neutrophils/100 WBC (Bld) 61.5 % Normal . [facility] Comment on above: Performed By: #### U HCG, ADDONUAPLUS #### [facility] [address] [place] [address] [place] BMPon 12-01-2023 Anion gap [Moles/Vol] 9 mmol/L Normal 6-16 [facility] Comment on above: Performed By: #### 2 [id number] #### [facility] [address] [place] [address] Calcium [Mass/Vol] 8.8 mg/dL Low 8.9-11.1 [facility] Comment on above: Performed By: #### 2 [id number] #### [facility] [address] [place] [address] Chloride [Moles/Vol] 107 mmol/L Normal 101-111 [facility] Comment on above: Performed By: #### 2 [id number] #### [facility] [address] [place] [address] CO2 [Moles/Vol] 28 mmol/L Normal 21-31 [facility] Comment on above: Performed By: #### 2 [id number] #### [facility] [address] [place] [address] Creatinine [Mass/Vol] 0.7 mg/dL Normal 0.5-1.3 [facility] Comment on above: Performed By: #### 2 [id number] #### [facility] [address] [place] [address] Glucose [Mass/Vol] 101 mg/dL Normal 55-199 [facility] Comment on above: Performed By: #### 2 [id number] #### [facility] [address] [place] [address] Potassium [Moles/Vol] 3.4 mmol/L Low 3.5-5.3 [facility] Comment on above: Performed By: #### 2 [id number] #### [facility] [address] [place] [address] Sodium [Moles/Vol] 141 mmol/L Normal 135-145 [facility] Comment on above: Performed By: #### 2 510405 #### [facility] [address] [place] [address] Urea nitrogen [Mass/Vol] 12 mg/dL Normal 5-21 [facility] Comment on above: Performed By: #### 2 801047 #### [facility] [address] [place] [address] Urea nitrogen/Creatinine [Mass ratio] 17 No Units Normal 10-20 [facility] Comment on above: Performed By: #### 2 [id number] #### [facility] [address] [place] [address] Bacteria [Presence] in Urine by AutomatedOrdered By: Vlad Bhandari on 12-01-2023 Bacteria Auto Ql (U) None seen [HPF] None Seen [facility] Bacteria Auto Ql (U) Bacteria [Presence] in Urine by Automated None Seen [facility] Basic Metabolic Panelon Creatinine Clr Calc Pharmacy 116.43 Normal [facility] Comment on above: Performed By: #### U HCG, ADDONUAPLUS #### [facility] [address] [place], [place] [id number] [facility] GFR/1.73 sq M.predicted MDRD (S/P/Bld) [Vol rate/Area] mL/min/{1.73_m2} Normal [facility] Comment on above: Performed By: #### U HCG, ADDONUAPLUS #### [facility] [address] [place] [address] [place] Basophils Auto (Bld) [#/Vol] Ordered By: Vlad Bhadnari on 12-01-2023 Basophils (Bld) [#/Vol] Automated basophil count 0.0-0.2 [facility] Basophils/100 WBC Auto (Bld) Ordered By: Vlad Bhandari on 12-01-2023 Basophils/100 WBC (Bld) Automated basophil % . [facility] Bilirubin Test strip Ql (U)O rdered By: Vlad Bhandari on 12-01-2023 Bilirubin Ql (U) Negative Negative [facility] Bilirubin Ql (U) Bilirubin.total [Presence] in Urine by Test strip Negative [facility] Bilirubin.direct [Mass/volum e] in Serum or PlasmaOrdered By: Vlad Bhandari on 12-01-2023 Bilirubin.direct [Mass/Vol] 0.00 mg/dL Low 0.03-0.18 [facility] Comment on above: If the DBIL is less than 0.1, IBIL is not able to becalculated. Bilirubin.direct [Mass/Vol] Bilirubin.direct [Mass/volume] in Serum or Plasma Low 0.03-0.18 [facility] Comment on above: If the DBIL is less than 0.1, IBIL is not able to becalculated. Bilirubin.total [Mass/volume ] in Serum or PlasmaOrdered By: Vlad Bhandari on 12-01-2023 Bilirubin [Mass/Vol] 0.3 mg/dL Normal 0.3-1.0 [facility] Comment on above: Performed By: #### U HCG, ADDONUAPLUS #### [facility] [address] [place] [id number] [facility] Bilirubin [Mass/Vol] Bilirubin.total [Mass/volume] in Serum or Plasma 0.3-1.0 [facility] CBC w/ Auto Diffon Basophils/100 WBC (Bld) 0.2 % Normal 0.0-2.0 [facility] Comment on above: Performed By: #### 2 [id number] #### [facility] [address] [place] [address] Basophils/Leukocytes Auto (Bld) [Pure # fraction] 0.0 E9/L Normal 0.0-0.2 [facility] Comment on above: Performed By: #### 2 [id number] #### [facility] [address] [place] [address] Eosinophils (Bld) [#/Vol] 0.3 E9/L Normal 0.0-0.5 [facility] Comment on above: Performed By: #### 2 526277 #### [facility] [address] [place] [address] Eosinophils/100 WBC (Bld) 3.1 % Normal 0.0-8.0 [facility] Comment on above: Performed By: #### 2 [id number] #### [facility] [address] [place] [address] Erythrocyte distribution width (RBC) [Ratio] 14.1 % Normal 10.9-14.2 [facility] Comment on above: Performed By: #### 2 [id number] #### [facility] [address] [place] [address] Hematocrit (Bld) [Volume fraction] 35.4 % Normal 34.0-46.0 [facility] Comment on above: Performed By: #### 2 813301 #### [facility] [address] [place] [address] Hemoglobin (Bld) [Mass/Vol] 12.1 g/dL Normal 12.0-16.0 [facility] Comment on above: Performed By: #### 2 [id number] #### [facility] [address] [place] [address] Lymphocytes (Bld) [#/Vol] 1.9 E9/L Normal 1.0-4.0 [facility] Comment on above: Performed By: #### 2 305010 #### [facility] [address] [place] [address] Lymphocytes/100 WBC (Bld) 20.2 % Normal 14.0-50.0 [facility] Comment on above: Performed By: #### 2 [id number] #### [facility] [address] [place] [address] MCH (RBC) [Entitic mass] 31.9 pg Normal 27.0-34.0 [facility] Comment on above: Performed By: #### 2 827450 #### [facility] [address] [place] [address] MCHC (RBC) [Mass/Vol] 34.3 g/dL Normal 31.4-36.0 [facility] Comment on above: Performed By: #### 2 710622 #### [facility] [address] [place] [address] MCV (RBC) [Entitic vol] 93.0 fL Normal 80.0-100.0 [facility] Comment on above: Performed By: #### 2 589413 #### [facility] [address] [place] [address] Monocytes (Bld) [#/Vol] 0.6 E9/L Normal 0.2-1.0 [facility] Comment on above: Performed By: #### 2 760311 #### [facility] [address] [place] [address] Neutrophils (Bld) [#/Vol] 6.8 E9/L Normal 2.0-7.5 [facility] Comment on above: Performed By: #### 2 731365 #### [facility] [address] [place] [address] Neutrophils/100 WBC (Bld) 70.4 % Normal 36.0-75.0 [facility] Comment on above: Performed By: #### 2 926597 #### [facility] [address] [place] [address] Platelet 352.0 E9/L Normal 150.0-500.0 [facility] Comment on above: Performed By: #### 2 552245 #### [facility] [address] [place] [address] Platelet mean volume (Bld) [Entitic vol] 7.6 fL Normal 6.4-10.8 [facility] Comment on above: Performed By: #### 2 [id number] #### [facility] [address] [place] [address] RBC (Bld) [#/Vol] 3.8 E12/L Low 4.3-5.9 [facility] Comment on above: Performed By: #### 2 827174 #### [facility] [address] [place] [address] WBC corrected for nucl RBC Auto (Bld) [#/Vol] 9.6 E9/L Normal 4.0-11.0 [facility] Comment on above: Performed By: #### 2 360835 #### [facility] [address] [place] [address] CHEMISTRYOrdered By: SYSTEM SYSTEM on 12-01-2023 ALP [...] Sensitivity Troponin I Instructions For Use, Katlyn Lampasas, October 2017) Urea nitrogen [Mass/Vol] 12 mg/dL Normal 5 - 21 mg/dL [facility] Urea nitrogen/Creatinine [Mass ratio] 17 mg/mg Normal 10 - [address] Abdomen/Pelvis w/o Contra ston 12-01-2023 CT Abdomen/Pelvis w/o Contrast Exam Date/Time: [...] Boss FINAL REPORT Dictated: 12/01/2023 1:40 pm Terrnace Hendrickson MD Signed (Electronic Signature): 12/01/2023 1:40 pm Signed by: Terrance Henrdickson MD Transcribed by: KIERRA Technologist: SHARON Technical Comments Rectal Contrast Given? No Oral contrast amount in ml's: 0 Normal [facility] Calcium [Mass/volume] in Ser um or PlasmaOrdered By: Vlad Bhandari on 12-01-2023 Calcium [Mass/Vol] 8.6 mg/dL Normal 8.6-10.3 [facility] Comment on above: Performed By: #### U HCG, ADDONUAPLUS #### [facility] [address] [place] [address] Calcium [Mass/Vol] Calcium [Mass/volume ] in Serum or Plasma 8.6-10.3 [facility] Calcium oxalate crystals [Pr esence] in Urine by Computer assisted methodOrdered By: Vlad Bhandari on 12-01-2023 Calcium oxalate crystals Computer assisted Ql (U) 3+ [HPF] [facility] Calcium oxalate crystals Computer assisted Ql (U) Calcium oxalate crystals [Presence] in Urine by Computer assisted method [facility] Carbon dioxide, total [Moles /volume] in Serum or PlasmaOrdered By: Vlad Bhandari on 12-01-2023 CO2 [Moles/Vol] 24.9 mmol/L Normal 21.0-31.0 [facility] Comment on above: Performed By: #### U HCG, ADDONUAPLUS #### [facility] [address] CO2 [Moles/Vol] Carbon dioxide, tota l [Moles/volume] in Serum or Plasma 21.0-31.0 [facility] Chloride [Moles/volume] in S saw or PlasmaOrdered By: Vlad Bhandari on 12-01-2023 Chloride [Moles/Vol] 108 mmol/L High 98-107 [facility] Comment on above: Performed By: #### U HCG, ADDONUAPLUS #### [facility] [address] [place] [address] Chloride [Moles/Vol] Chloride [Moles/vol ume] in Serum or Plasma High 98-107 [facility] Color Auto (U)Ordered By: Joon Bhandari on 12-01-2023 Color (U) Color of Urine by Auto Yellow Fi [facility] Color of Urine by AutoOrdere d By: Vlad Bhandari on 12-01-2023 Color (U) Yellow Normal Yellow [facility] Comment on above: Order Comment: Name Collection Type:: Clean-Voided Midstream Performed By: #### U HCG, ADDONUAPLUS #### [facility] [address] [place] [address] [place] Complete Blood Count Auto Di ffon 12-01-2023 Mean Corpuscular HGB Conc 33.5 g/dL Normal 32.0-35.0 [facility] Comment on above: Performed By: #### U HCG, ADDONUAPLUS #### [facility] [address] [place] [address] [place] Monocytes/100 WBC (Bld) 24.15 % High 0.00-20.00 [facility] Comment on above: Result Comment: For adults in ED, MDW > 20.0 may be associated with a higher risk of sepsis during the first 12 hrs of hospital admission Performed By: #### U HCG, ADDONUAPLUS #### [facility] [address] [place] [address] NRBC% 0.0 /100{WBC} Normal 0-0.5 [facility] Comment on above: Performed By: #### U HCG, ADDONUAPLUS #### [address] Creatinine [Mass/volume] in Serum or PlasmaOrdered By: Vlad Bhandari on 12-01-2023 Creatinine [Mass/Vol] 0.74 mg/dL Normal 0.60-1.20 [facility] Comment on above: Performed By: #### U HCG, ADDONUAPLUS #### [address] Creatinine [Mass/Vol] Creatinine [Mass/volume] in Serum or Plasma 0.60-1.20 [facility] Dipstick and Microscopicon 0 12-01-2023 Bacteria,Urine None Seen Normal None Seen [facility] Comment on above: Order Comment: Name Collection Type:: Clean-Voided Midstream Performed By: #### U HCG, ADDONUAPLUS #### [place] [address] [place] Bilirubin,Urine Negative Normal Negative [facility] Comment on above: Order Comment: Name Collection Type:: Clean-Voided Midstream Performed By: #### U HCG, ADDONUAPLUS #### [address] Calcium Oxalate Crystals,Urine 3+ Normal [facility] Comment on above: Order Comment: Name Collection Type:: Clean-Voided Midstream Performed By: #### U HCG, ADDONUAPLUS #### [address] Glucose Ql (U) Normal Normal Normal [facility] Comment on above: Order Comment: Name Collection Type:: Clean-Voided Midstream Performed By: #### U HCG, ADDONUAPLUS #### [place] [address] [place] Hyaline Casts,Urine 0-8 Normal 0-8 [facility] Comment on above: Order Comment: Name Collection Type:: Clean-Voided Midstream Performed By: #### U HCG, ADDONUAPLUS #### [facility] [address] [place] [address] [place] Mucus,Urine 2+ Critically abnormal [facility] Comment on above: Order Comment: Name Collection Type:: Clean-Voided Midstream Performed By: #### U HCG, ADDONUAPLUS #### [facility] [address] [place] [address] [place] Nitrite,Urine Negative Normal Negative [facility] Comment on above: Order Comment: Name Collection Type:: Clean-Voided Midstream Performed By: #### U HCG, ADDONUAPLUS #### [address] Occult Blood,Urine Negative Normal Negative [facility] Comment on above: Order Comment: Name Collection Type:: Clean-Voided Midstream Performed By: #### U HCG, ADDONUAPLUS #### [place] [address] [place] Protein,Urine Trace High Negative [facility] Comment on above: Order Comment: Name Collection Type:: Clean-Voided Midstream Performed By: #### U HCG, ADDONUAPLUS #### [facility] [address] [place] [address] [place] RBC,Urine 1-2 Normal 0-4 [facility] Comment on above: Order Comment: Name Collection Type:: Clean-Voided Midstream Performed By: #### U HCG, ADDONUAPLUS #### [facility] [address] [place] [address] [place] Renal Epithelial Cells,Urine 1-2 High 0-1 [facility] Comment on above: Order Comment: Name Collection Type:: Clean-Voided Midstream Performed By: #### U HCG, ADDONUAPLUS #### [facility] [address] [place] [address] [place] Specificy Salcha,Urine 1.026 Normal 1.001-1.030 [facility] Comment on above: Order Comment: Name Collection Type:: Clean-Voided Midstream Performed By: #### U HCG, ADDONUAPLUS #### [facility] [address] Squamous Epithelial Cell,Urine 10-19 High 0-2 [facility] Comment on above: Order Comment: Name Collection Type:: Clean-Voided Midstream Performed By: #### U HCG, ADDONUAPLUS #### [facility] [address] Urobilinogen,Urine 3 mg/dL High Normal [facility] Comment on above: Order Comment: Name Collection Type:: Clean-Voided Midstream Performed By: #### U HCG, ADDONUAPLUS #### [facility] [address] [place] [address] WBC,Urine 1-2 Normal 0-4 [facility] Comment on above: Order Comment: Name Collection Type:: Clean-Voided Midstream Performed By: #### U HCG, ADDONUAPLUS #### [facility] [address] [place] [address] ED Clinical Summaryon 2023 ED Clinical Summary ED Clinical Summary [place] [address] ED Clinical Summary Person Information Name: JERAD TRACY Alesha/[facility] Age: 48 Years : 1975 Sex: Female Language: Cambodian PCP: Cheyanne Rincon Marital Status: Visit Id: [...] 12/01/2023 14:28:11 12/01/2023 14:28:11 12/01/2023 14:28:11 ADDRESS: [address] [place] [id number] [facility] DOC NOTES: MEDICAL INFORMATION: Prescriptions Given: [...] EDUCATION INFORMATION: Instructions: Hypokalemia; Flank Pain, Adult, [id number]; Abdominal Pain, Adult, [id number] Follow up: With: Address: When: Cheyanne Post, [facility] A, [place] [id number] [employer] (1) In 3 days 12/04/2023 DIAGNOSIS: 1:Hypokalemia; 2:Flank pain Normal [facility] ED Note-Nursingon 12-01-2023 ED Note-Nursing ED Note-Nursing Pt requesting pain medication, GINGER Weinstein aware. No further orders at this time. Normal [facility] ED Note-Physicianon 12-01-19 ED Note-Physician ED Note-Physician Basic Information Time Seen: Gera MILES, Kristie Govea 12/01/2023 11:58 Chief Complaint swelling in feet [...] return to (more content not included)... Normal [facility] Comment on above: Result Comment: Elec tronically Signed By: Kristie Boss PA-C\.br\Date and Time Signed: 12/01/23 14:25 EDT\.br\Electronically Co-Signed By: Balbina Bryant M.D.\.br\Date and Time Co-Signed: 12/01/23 19:41 EDT ED Patient Summaryon 024 ED Patient Summary ED Patient Summary [address] [address] Patient Discharge Instructions Person Information Name: JERAD TRACY Age: 48 Years Arrival Date: 12/01/2023 11:42:40 Discharge Diagnosis: 1:Hypokalemia; 2:Flank pain Primary Care Physician: Ralph BEYER, Cheyanne Cantu Provider Information Primary Provider: Balbina Bryant M.D. [employer] Kitchen:None The exam and treatment you received in the Emergency Department were for an urgent problem and are not intended as complete care. It is important that you follow up with a doctor, nurse practitioner, or physician?s insurance administrative assistant for ongoing care. If your symptoms become worse or you do not improve as expected and you are unable to reach your usual health care provider, you should return to the Emergency Department. We are available 24 hours a day. JERAD TRACY has been given the following list of patient education materials, prescriptions and follow-up instructions: Follow-up Instructions: With: Address: When: Chyeanne Rosas [address] [facility], [address] A, [address] [address] Business (1) In 3 days 12/04/2023 In the event that this physician does not participate in your insurance network, please consult with your insurance company to find a nearby participating provider. Patient Education Materials: Hypokalemia; Flank Pain, Adult, Dssx-cn-Hqpr; Abdominal Pain, Adult, Agcp-pa-Slxa A MESSAGE TO ALL PATIENTS REGARDING OPIOIDS PRESCRIPTION OPIOIDS: WHAT YOU NEED TO KNOW Prescription opioids can be used to help relieve rkqwojvk-by-dubudf pain and are often prescribed following a [...] be struggling with addiction, tell your health resident care provider (more content not included)... Normal [facility] Eosinophils Auto (Bld) [#/Vo l]Ordered By: Vlad Bhandari on 12-01-2023 Eosinophils (Bld) [#/Vol] Automated eosinophil count 0.0-0.45 [facility] Eosinophils/100 WBC Auto (Bl d)Ordered By: Vlad Bhandari on 12-01-2023 Eosinophils/100 WBC (Bld) Automated eosinophil % . [facility] Epithelial cells.renal [#/ar ea] in Urine by Computer assisted methodOrdered By: Vlad Bhandari on 12-01-2023 Epithelial cells.renal Computer assisted (U) [#/Area] 1-2 [HPF] High 0-1 [facility] Epithelial cells.renal Computer assisted (U) [#/Area] Epithelial cells.renal [#/area] in Urine by Computer assisted method High 0-1 [facility] Epithelial cells.squamous [# /area] in Urine sediment by Automated countOrdered By: Vlad Bhandari on 12-01-2023 Epithelial cells.squamous Auto (Urine sed) [#/Area] 10-19 [HPF] High 0-2 [facility] Epithelial cells.squamous Auto (Urine sed) [#/Area] Epithelial cells.squamous [#/area] in Urine sediment by Automated count High 0-2 [facility] Erythrocyte distribution wid th Auto (RBC) [Ratio]Ordered By: Vlad Bhandari on 12-01-2023 Erythrocyte distribution width (RBC) [Ratio] Erythrocyte distribution width [Ratio] by Automated count 11.9-15.3 [facility] Erythrocyte distribution wid th [Ratio] by Automated countOrdered By: SYSTEM SYSTEM on 12-01-2023 Erythrocyte distribution width (RBC) [Ratio] 14.1 % Normal 11.9-15.3 [facility] Comment on above: Performed By: #### U HCG, ADDONUAPLUS #### [address] Erythrocytes [#/area] in Uri ne sediment by Automated countOrdered By: Vlad Bhandari on 12-01-2023 RBC Auto (Urine sed) [#/Area] 1-2 [HPF] 0-4 [facility] RBC Auto (Urine sed) [#/Area] Erythrocytes [#/area] in Urine sediment by Automated count 0-4 [facility] Erythrocytes [#/volume] in B lood by Automated countOrdered By: Vlad Bhandari on 12-01-2023 RBC (Bld) [#/Vol] 3.84 10*6/uL Normal 3.60-5.00 [facility] Comment on above: Performed By: #### U HCG, ADDONUAPLUS #### [facility] [address] Globulin Calc (S) [Mass/Vol] Ordered By: Vlda Bhandari on 12-01-2023 Globulin (S) [Mass/Vol] Serum globulin measurement by calculation (mass/volume) [facility] Glucose [Mass/volume] in Ser um or PlasmaOrdered By: Vlad Bhandari on 12-01-2023 Glucose [Mass/Vol] 104 mg/dL High 70-100 [facility] Comment on above: ADA recommended refe rence rangeRandom Glucose Reference Range is dependent on time and content of last meal. Glucose of more than 200 mg/dL in a nonstressed, ambulatory subject supports the diagnosis of Diabetes Mellitus. Result Comment: [facility] Glucose Reference Range is dependent on time and content of last meal. Glucose of more than 200 mg/dL in a nonstressed, ambulatory subject supports the diagnosis of Diabetes Mellitus. ADA recommended reference range Performed By: #### U HCG, ADDONUAPLUS #### [facility] [address] [place] [address] Glucose [Mass/Vol] Glucose [Mass/volume ] in Serum or Plasma High 70-100 [facility] Comment on above: ADA recommended refe rence rangeRandom Glucose Reference Range is dependent on time and content of last meal. Glucose of more than 200 mg/dL in a nonstressed, ambulatory subject supports the diagnosis of Diabetes Mellitus. Glucose [Mass/volume] in Uri ne by Test stripOrdered By: Vlad Bhandari on 12-01-2023 Glucose Test strip (U) [Mass/Vol] Normal mg/dL Normal [facility] Glucose Test strip (U) [Mass/Vol] Glucose [Mass/volume] in Urine by Test strip Normal [facility] HCG ( test) IA.nolani d Ql (U)Ordered By: Vlad Bhandari on 12-01-2023 HCG ( test) Ql (U) Negative [facility] HCG ( test) Ql (U) Urine human chorionic gonadotropin (hCG) detection by immunoassay [facility] HCG,Urineon 12-01-2023 Beta HCG ( test) Ql (U) Negative Normal [facility] Comment on above: Order Comment: Name Collection Type:: Clean-Voided Midstream Result Comment: PERF ORMED BY: [facility] [address] [place] [address] PATHOLOGIST TUBE 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 JASON WILSON M.D. Performed By: #### U HCG, ADDONUAPLUS #### [facility] [address] HEMATOLOGYOrdered By: SYSTEM SYSTEM on 12-01-2023 [...] 4.0 - 11.0 E9/L [facility] Hematocrit Auto (Bld) [Volum e fraction]Ordered By: Vlad Bhandari on 12-01-2023 Hematocrit (Bld) [Volume fraction] Hematocrit [Volume Fraction] of Blood by Automated count 34.0-46.4 [facility] Hematocrit [Volume Fraction] of Blood by Automated countOrdered By: Vlad Bhandari on 12-01-2023 Hematocrit (Bld) [Volume fraction] 35.8 % Normal 34.0-46.4 [facility] Comment on above: Performed By: #### U HCG, ADDONUAPLUS #### [address] Hemoglobin Test strip Ql (U) Ordered By: Vlad Bhandari on 12-01-2023 Hemoglobin Ql (U) Negative Negative [facility] Hemoglobin Ql (U) Hemoglobin [Presence ] in Urine by Test strip Negative [facility] Hemoglobin [Mass/volume] in BloodOrdered By: Vlad Bhandari on 12-01-2023 Hemoglobin (Bld) [Mass/Vol] 12.0 g/dL Normal 11.8-15.4 [facility] Comment on above: Performed By: #### U HCG, ADDONUAPLUS #### [facility] [address] [place] [address] [facility] Hemoglobin (Bld) [Mass/Vol] Hemoglobin [Mass/volume] in Blood 11.8-15.4 [facility] Hep Func Panelon 12-01-2023 Albumin [Mass/Vol] 3.9 g/dL Normal 3.3-5.0 [facility] Comment on above: Performed By: #### 2 [id number] #### [facility] [address] [place] [address] Albumin/Globulin (S) [Mass conc ratio] 1.3 Normal 1.1-2.2 [facility] Comment on above: Performed By: #### 2 [id number] #### [facility] [address] [place] [address] ALP [Catalytic activity/Vol] 70 Int._Unit/L Normal 21-98 [facility] Comment on above: Performed By: #### 2 [id number] #### [facility] [address] [place] [address] ALT No additional P-5'-P [Catalytic activity/Vol] 23 Int._Unit/L Normal 6-46 [facility] Comment on above: Performed By: #### 2 [id number] #### [facility] [address] [place] [address] AST [Catalytic activity/Vol] 24 Int._Unit/L Normal 5-43 [facility] Comment on above: Performed By: #### 2 [id number] #### [facility] [address] [place] [address] Bilirubin [Mass/Vol] 0.4 mg/dL Normal 0.0-1.1 [facility] Comment on above: Performed By: #### 2 [id number] #### [facility] [address] [place] [address] Bilirubin.direct [Mass/Vol] 0.1 mg/dL Normal 0.0-0.4 [facility] Comment on above: Performed By: #### 2 [id number] #### [facility] [address] [place] [address] Bilirubin.indirect [Mass or moles/Vol] 0.3 mg/dL Normal 0.1-0.9 [facility] Comment on above: Performed By: #### 2 [id number] #### [facility] [address] [place] [address] Globulin (S) [Mass/Vol] 3.1 g/dL Normal 1.4-4.0 [facility] Comment on above: Performed By: #### 2 [id number] #### [facility] [address] [place] [address] Protein [Mass/Vol] 7.0 g/dL Normal 6.0-7.8 [facility] Comment on above: Performed By: #### 2 [id number] #### [facility] [address] [place] [address] Hepatic Panelon 12-01-2023 Bilirubin,Indirect 0.3 mg/dL Normal [facility] Comment on above: Performed By: #### U HCG, ADDONUAPLUS #### [address] Bilirubin.indirect [Mass/Vol] 0.00 mg/dL Low 0.03-0.18 [facility] Comment on above: Result Comment: If t he DBIL is less than 0.1, IBIL is not able to be calculated. Performed By: #### U HCG, ADDONUAPLUS #### [facility] [address] Hepatic PanelOrdered By: SYS TEM SYSTEM on 12-01-2023 Albumin [Mass/Vol] 3.9 g/dL Normal 3.5-5.7 [facility] Comment on above: Performed By: #### U HCG, ADDONUAPLUS #### [address] Hyaline casts [#/area] in Ur ine sediment by Automated countOrdered By: Vlad Bhandari on 12-01-2023 Hyaline casts Auto (Urine sed) [#/Area] 0-8 [LPF] 0-8 [facility] Hyaline casts Auto (Urine sed) [#/Area] Hyaline casts [#/area] in Urine sediment by Automated count 0-8 [facility] Ketones Test strip Ql (U)Ord ered By: Vlad Bhandari on 12-01-2023 Ketones Ql (U) Ketones [Presence] i n Urine by Test strip Negative [facility] Ketones [Presence] in Urine by Test stripOrdered By: Vlad Bhandari on 12-01-2023 Ketones Ql (U) Negative Normal Negative [facility] Comment on above: Order Comment: Name Collection Type:: Clean-Voided Midstream Performed By: #### U HCG, ADDONUAPLUS #### [facility] [address] [place] [address] Lactic Acidon 12-01-2023 Lactic Acid Lvl 0.7 mmol/L Normal 0.5-2.2 [facility] Comment on above: Performed By: #### 2 [id number] #### [facility] [address] [place] [address] Leukocyte esterase [Presence ] in Urine by Test stripOrdered By: Vlad Bhandari on 12-01-2023 Leukocyte esterase Test strip Ql (U) Negative Normal Negative [facility] Comment on above: Order Comment: Name Collection Type:: Clean-Voided Midstream Performed By: #### U HCG, ADDONUAPLUS #### [facility] [address] Leukocyte esterase Test strip Ql (U) Leukocyte esterase [Presence] in Urine by Test strip Negative [facility] Leukocytes [#/area] in Urine sediment by Automated countOrdered By: Vlad Bhandari on 12-01-2023 WBC Auto (Urine sed) [#/Area] 1-2 [HPF] 0-4 [facility] WBC Auto (Urine sed) [#/Area] Leukocytes [#/area] in Urine sediment by Automated count 0-4 [facility] Leukocytes [#/volume] correc lisa for nucleated erythrocytes in Blood by Automated counOrdered By: Vlad Bhandari on 12-01-2023 WBC corrected for nucl RBC Auto (Bld) [#/Vol] 8.8 10*3/uL 3.8-11.6 [facility] WBC corrected for nucl RBC Auto (Bld) [#/Vol] Leukocytes [#/volume] corrected for nucleated erythrocytes in Blood by Automated coun 3.8-11.6 [facility] Leukocytes [#/volume] in Blo od by Automated countOrdered By: Vlad Bhandari on 12-01-2023 WBC (Bld) [#/Vol] 8.8 10*3/uL Normal 3.8-11.6 [facility] Comment on above: Performed By: #### U HCG, ADDONUAPLUS #### [facility] [address] [place] [address] [facility] Lipase Levelon 12-01-2023 Lipase [Catalytic activity/Vol] 24 U/L Normal 13-58 [facility] Comment on above: Performed By: #### 2 [id number] #### [facility] [address] [place] [address] Lipase [Enzymatic activity/v olume] in Serum or PlasmaOrdered By: Vlad Bhandari on 12-01-2023 Lipase [Catalytic activity/Vol] 23.0 U/L Normal 11.0-82.0 [facility] Comment on above: Result Comment: PERF ORMED BY: [place] [address] PATHOLOGIST TUBE 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 JASON WILSON M.D. Performed By: #### U HCG, ADDONUAPLUS #### [facility] [address] [place] [address] [place] Lipase [Catalytic activity/Vol] Lipase [Enzymatic activity/volume] in Serum or Plasma 11.0-82.0 [facility] Lymphocytes Auto (Bld) [#/Vo l]Ordered By: Vlad Bhandari on 12-01-2023 Lymphocytes (Bld) [#/Vol] Lymphocytes [#/volume] in Blood by Automated count 1.00-4.8 [facility] Lymphocytes [#/volume] in Bl ood by Automated countOrdered By: Vlad Bhandari on 12-01-2023 Lymphocytes (Bld) [#/Vol] 2.4 10*3/uL Normal 1.00-4.8 [facility] Comment on above: Performed By: #### U HCG, ADDONUAPLUS #### [facility] [address] [place] [address] Lymphocytes/100 WBC Auto (Bl d)Ordered By: Vlad Bhandari on 12-01-2023 Lymphocytes/100 WBC (Bld) Lymphocytes/100 leukocytes in Blood by Automated count . [facility] Lymphocytes/100 leukocytes i n Blood by Automated countOrdered By: Vlad Bhandari on 12-01-2023 Lymphocytes/100 WBC (Bld) 27.1 % Normal . [facility] Comment on above: Performed By: #### U HCG, ADDONUAPLUS #### [address] MCH Auto (RBC) [Entitic mass ]Ordered By: Vlad Bhandari on 12-01-2023 MCH (RBC) [Entitic mass] MCH [Entitic mass] by Automated count 24.7-34.3 [facility] MCH [Entitic mass] by Automa lisa countOrdered By: Vlad Bhandari on 12-01-2023 MCH (RBC) [Entitic mass] 31.2 pg Normal 24.7-34.3 [facility] Comment on above: Performed By: #### U HCG, ADDONUAPLUS #### [facility] [address] [place] [address] MCHC Auto (RBC) [Mass/Vol]Or dered By: Vlad Bhandari on 12-01-2023 MCHC (RBC) [Mass/Vol] 33.5 g/dL 32.0-35.0 [facility] MCHC (RBC) [Mass/Vol] MCHC [Mass/volume] by Automated count 32.0-35.0 [facility] MCV Auto (RBC) [Entitic vol] Ordered By: Vlad Bhandari on 12-01-2023 MCV (RBC) [Entitic vol] MCV [Entitic volume] by Automated count 80-100 [facility] MCV [Entitic volume] by Auto mated countOrdered By: Vlad Bhandari on 12-01-2023 MCV (RBC) [Entitic vol] 93.2 fL Normal 80-100 [facility] Comment on above: Performed By: #### U HCG, ADDCHANTELLEUAPLUS #### [address] Monocyte distribution width [Entitic volume] in Blood by AutomatedOrdered By: Vlad Bhandari on 12-01-2023 Monocyte distribution width Auto (Bld) [Entitic vol] 24.15 % High 0.00-20.00 [facility] Comment on above: For adults in ED, MD W > 20.0 may be associated with a higher risk of sepsis during the first 12 hrs of hospital admission Monocyte distribution width Auto (Bld) [Entitic vol] Monocyte distribution width [Entitic volume] in Blood by Automated High 0.00-20.00 [facility] Comment on above: For adults in ED, MD W > 20.0 may be associated with a higher risk of sepsis during the first 12 hrs of hospital admission Monocytes Auto (Bld) [#/Vol] Ordered By: Vlad Bhandari on 12-01-2023 Monocytes (Bld) [#/Vol] Automated blood monocyte count 0.0-0.8 [facility] Monocytes/100 WBC Auto (Bld) Ordered By: Vlad Bhandari on 12-01-2023 Monocytes/100 WBC (Bld) Automated monocyte % . [facility] Mucus [Presence] in Urine by AutomatedOrdered By: Vlad Bhandari on 12-01-2023 Mucus Auto Ql (U) 2+ [LPF] Abnormal [facility] Mucus Auto Ql (U) Mucus [Presence] in Urine by Automated Abnormal [facility] Neutrophils Auto (Bld) [#/Vo l]Ordered By: Vlad Bhandari on 12-01-2023 Neutrophils (Bld) [#/Vol] Neutrophils [#/volume] in Blood by Automated count 1.8-7.7 [facility] Neutrophils [#/volume] in Bl ood by Automated countOrdered By: Vlad Bhandari on 12-01-2023 Neutrophils (Bld) [#/Vol] 5.4 10*3/uL Normal 1.8-7.7 [facility] Comment on above: Performed By: #### U HCG, ADDONUAPLUS #### [facility] [address] [place] [address] [place] Neutrophils/100 WBC Auto (Bl d)Ordered By: Vlad Bhandari on 12-01-2023 Neutrophils/100 WBC (Bld) Automated neutrophil % . [facility] Nitrite Test strip Ql (U)Ord ered By: Vlad Bhandari on 12-01-2023 Nitrite Ql (U) Negative Negative [facility] Nitrite Ql (U) Nitrite [Presence] i n Urine by Test strip Negative [facility] No Panel InformationOrdered By: Vlad Bhandari on 12-01-2023 Estimated GFR (CKD-EPI) > 60.0 mL/Min [facility] Creatinine Clearance (Chem 116.43 [facility] Nucleated erythrocytes [Pres ence] in Blood by Automated countOrdered By: Vlad Bhandari on 12-01-2023 Nucleated RBC Auto Ql (Bld) 0.0 /100{WBC} 0-0.5 [facility] Nucleated RBC Auto Ql (Bld) Nucleated erythrocytes [Presence] in Blood by Automated count 0-0.5 [facility] Platelet mean volume Auto (B ld) [Entitic vol]Ordered By: Vlad Bhandari on 12-01-2023 Platelet mean volume (Bld) [Entitic vol] Platelet mean volume [Entitic volume] in Blood by Automated count 6.3-10.7 [facility] Platelet mean volume [Entiti c volume] in Blood by Automated countOrdered By: Vlad Bhandari on 12-01-2023 Platelet mean volume (Bld) [Entitic vol] 8.7 fL Normal 6.3-10.7 [facility] Comment on above: Performed By: #### U HCG, ADDONUAPLUS #### [facility] [address] [place] [address] [place] Platelets Auto (Bld) [#/Vol] Ordered By: Vlad Bhandari on 12-01-2023 Platelets (Bld) [#/Vol] Platelets [#/volume] in Blood by Automated count 150-450 [facility] Platelets [#/volume] in Bloo d by Automated countOrdered By: Vlad Bhandari on 12-01-2023 Platelets (Bld) [#/Vol] 368 10*3/uL Normal 150-450 [facility] Comment on above: Performed By: #### U HCG, ADDONUAPLUS #### [facility] [address] [place] [address] [place] Potassium [Moles/volume] in Serum or PlasmaOrdered By: Vlad Bhandari on 12-01-2023 Potassium [Moles/Vol] 3.7 mmol/L Normal 3.5-5.1 [facility] Comment on above: Performed By: #### U HCG, ADDONUAPLUS #### [facility] [address] [place] [address] [place] Potassium [Moles/Vol] Potassium [Moles/volume] in Serum or Plasma 3.5-5.1 [facility] Protein Test strip (U) [Mass /Vol]Ordered By: Vlad Bhandari on 12-01-2023 Protein (U) [Mass/Vol] Trace mg/dL High Negative [facility] Protein (U) [Mass/Vol] Protein [Mass/vol ume] in Urine by Test strip High Negative [facility] Protein [Mass/volume] in Ser um or PlasmaOrdered By: Vlad Bhandari on 12-01-2023 Protein [Mass/Vol] 6.9 g/dL Normal 6.4-8.9 [facility] Comment on above: Performed By: #### U HCG, ADDONUAPLUS #### [facility] [address] [place] [address] Protein [Mass/Vol] Protein [Mass/volume ] in Serum or Plasma 6.4-8.9 [facility] RBC Auto (Bld) [#/Vol]Ordere d By: Vlad Bhandari on 12-01-2023 RBC (Bld) [#/Vol] Erythrocytes [#/volu me] in Blood by Automated count 3.60-5.00 [facility] Serum globulin measurement b y calculation (mass/volume)Ordered By: Vlad Bhandari on 12-01-2023 Globulin (S) [Mass/Vol] 3.0 g/dL Normal [facility] Comment on above: Performed By: #### U HCG, ADDONUAPLUS #### [facility] [address] [place] [address] Serum or plasma albumin/glob ulin mass ratioOrdered By: Vlad Bhandari on 12-01-2023 Albumin/Globulin [Mass ratio] Serum or plasma albumin/globulin mass ratio [facility] Serum or plasma albumin/glob ulin mass ratioOrdered By: SYSTEM SYSTEM on 12-01-2023 Albumin/Globulin [Mass ratio] 1.3 {ratio} Normal [facility] Comment on above: Performed By: #### U HCG, ADDONUAPLUS #### [facility] [address] [place] [address] Serum or plasma anion gap de terminationOrdered By: Vlad Bhandari on 12-01-2023 Anion gap [Moles/Vol] 11.8 mmol/L Normal 6.0-15.0 [facility] Comment on above: Performed By: #### U HCG, ADDONUAPLUS #### [address] Anion gap [Moles/Vol] Serum or plasma an ion gap determination 6.0-15.0 [facility] Serum or plasma non-glucuron idated bilirubin measurement (mass/volume)Ordered By: Vlad Bhandari on 12-01-2023 Bilirubin.indirect [Mass/Vol] 0.3 mg/dL [facility] Bilirubin.indirect [Mass/Vol] Serum or plasma non-glucuronidated bilirubin measurement (mass/volume) [facility] Sodium [Moles/volume] in Ser um or PlasmaOrdered By: Vlad Bhandari on 12-01-2023 Sodium [Moles/Vol] Sodium [Moles/volume ] in Serum or Plasma 136-145 [facility] Sodium [Moles/volume] in Ser um or PlasmaOrdered By: SYSTEM SYSTEM on 12-01-2023 Sodium [Moles/Vol] 141 mmol/L Normal 136-145 [facility] Comment on above: Performed By: #### U HCG, ADDONUAPLUS #### [facility] [address] [place] [address] Specific gravity Test strip (U) [Rel density]Ordered By: Vlad Bhandari on 12-01-2023 Specific gravity (U) [Rel density] 1.026 1.001-1.030 [facility] Specific gravity (U) [Rel density] Specific gravity of Urine by Test strip 1.001-1.030 [facility] Troponin 0 Hr.on 12-01-2023 Troponin HS 3.50 pg/mL Low 10.10-27.10 [facility] Comment on above: Result Comment: The 95% CI (Confidence Interval) PPV (Positive Predictive Value) for myocardial infarction in females is 38 pg/mL, in males 51 pg/mL. The results should be used in conjunction with clinical conditions of myocardial infarction. (Access High Sensitivity Troponin I Instructions For Use, [employer], October 2017) Performed By: #### 1 [id number] #### [facility] [address] [place] [address] UA with Cult Rflxon 12-01-19 24 Bilirubin Ql (U) Negative Normal Negative [facility] Comment on above: Performed By: #### 4 [id number] #### [facility] [address] [place] [address] Clarity (U) Ex.Turbid Abnormal Clear [facility] Comment on above: Performed By: #### 4 [id number] #### [facility] [address] [place] [address] Color (U) Yellow Normal Yellow [facility] Comment on above: Result Comment: Micr oscopic readings are only performed on those samples that meet specific criteria set forth by [facility]. Performed By: #### 4 [id number] #### [facility] [address] [place] [address] Crystals.amorphous Computer assisted Ql (U) Present Abnormal [facility] Comment on above: Performed By: #### 4 [id number] #### [facility] [address] [place] [address] Epithelial cells.squamous Auto (Urine sed) [#/Area] 0-2 Invalid Interpretation Code [facility] [facility] Comment on above: Performed By: #### 4 [id number] #### [facility] [address] [place] [address] Glucose Ql (U) Negative Normal Negative [facility] Comment on above: Performed By: #### 4 [id number] #### [facility] [address] [place] [address] Hemoglobin Auto test strip (U) [Mass/Vol] Negative Normal Negative [facility] Comment on above: Performed By: #### 4 [id number] #### [facility] [address] [place] [address] Ketones Auto test strip Ql (U) Negative Normal Negative [facility] Comment on above: Performed By: #### 4 [id number] #### [facility] [address] [place] [address] Leukocyte esterase Auto test strip Ql (U) Negative Normal Negative [facility] Comment on above: Performed By: #### 4 [id number] #### [facility] [address] [place] [address] Mucus Auto Ql (U) Negative Normal Negative [facility] Comment on above: Performed By: #### 4 [id number] #### [facility] [address] [place] [address] Nitrite Auto test strip Ql (U) Negative Normal Negative [facility] Comment on above: Performed By: #### 4 [id number] #### [facility] [address] [place] [address] pH (U) 8.0 [pH] Invalid Interpretation Code 5.0-9.0 [facility] Comment on above: Performed By: #### 4 [id number] #### [facility] [address] [place] [address] Protein Ql (U) Negative Normal Negative [facility] Comment on above: Performed By: #### 4 [id number] #### [facility] [address] [place] [address] Specific gravity (U) [Rel density] 1.018 Invalid Interpretation Code 1.005-1.030 [facility] Comment on above: Performed By: #### 4 [id number] #### [facility] [address] [place] [address] Urobilinogen (U) [Mass/Vol] Negative Normal Negative [facility] Comment on above: Performed By: #### 4 [id number] #### [facility] [address] [place] [address] Type of Urine collection method Clean Catch Normal [facility] Comment on above: Performed By: #### 4 [id number] #### [facility] [address] [place] [address] URINALYSISOrdered By: SYSTEM SYSTEM on 12-01-2023 Bilirubin Ql (U) Negative Normal Negativemg/ d L [facility] UA Auto SS Clarity (U) Ex.Turbid *ABN* (12/01/23 12:57 PM) Invalid Interpretation Code Clear [facility] UA Auto SS Color (U) Yellow 1 (12/01/23 12:57 PM) Normal Yellow [facility] UA Auto SS Comment on above: Interpretive Data: M icroscopic readings are only performed on those samples that meet specific criteria set forth by [facility]. Crystals.amorphous Computer assisted Ql (U) [...] strip Ql (U) Negative Normal Negativemg/d L [facility] UA Auto SS Leukocyte esterase Auto test strip Ql (U) Negative Normal NegativeLeu/ uL [facility] UA Auto SS Mucus Auto Ql (U) Negative Normal Negativegr ad ed/LPF [facility] UA Auto SS Nitrite Auto test strip Ql (U) Negative Normal Negativemg/d L [facility] UA Auto SS pH (U) 8.0 *NA* (12/01/23 12:57 PM) Invalid Interpretation Code 5.0 - 9.0 [facility] UA Auto SS Protein Ql (U) Negative Normal Negativemg/d L [facility] UA Auto SS Specific gravity (U) [Rel density] 1.018 *NA* (12/01/23 12:57 PM) Invalid Interpretation Code 1.005 - 1.030 [facility] [place] Auto SS Urobilinogen (U) [Mass/Vol] Negative Normal Negativemg/d L [facility] [place] Auto SS URINALYSISOrdered By: Kwan Boss on 12-01-2023 UA Spec Desc Clean Catch (12/01/23 12:57 PM) Normal [facility] [place] Auto SS Urea nitrogen [Mass/volume] in Serum or PlasmaOrdered By: Vlad Bhandari on 12-01-2023 Urea nitrogen [Mass/Vol] 14 mg/dL Normal 10-16 [facility] Comment on above: Performed By: #### U HCG, ADDONUAPLUS #### [facility] [address] [place] [address] Urea nitrogen [Mass/Vol] Urea nitrogen [Mass/volume] in Serum or Plasma 10-16 [facility] Urine appearanceOrdered By: Vlad Bhandari on 12-01-2023 Appearance (U) Clear Normal Clear [facility] Comment on above: Order Comment: Name Collection Type:: Clean-Voided Midstream Performed By: #### U HCG, ADDONUAPLUS #### [facility] [address] [place] [address] Urobilinogen Test strip (U) [Mass/Vol]Ordered By: Vlad Bhandari on 12-01-2023 Urobilinogen (U) [Mass/Vol] 3 mg/dL High Normal [facility] Urobilinogen (U) [Mass/Vol] Urobilinogen [Mass/volume] in Urine by Test strip [facility] WBC Auto (Bld) [#/Vol]Ordere d By: Vlad Bhandari on 12-01-2023 WBC (Bld) [#/Vol] Leukocytes [#/volume ] in Blood by Automated count 3.8-11.6 [facility] eGFRon 12-01-2023 eGFR 107 mL/min/1.73 m2 Normal >=59 [facility] Comment on above: Order Comment: Order added by Discern Expert. Performed By: #### 1 [id number] #### [facility] [address] [place] [address] pH Test strip (U)Ordered By: Vlad Bhandari on 12-01-2023 pH (U) pH of Urine by Test strip 5.0-9.0 [facility] pH of Urine by Test stripOrd ered By: Vlad Bhandari on 12-01-2023 pH (U) 6.5 [pH] Normal 5.0-9.0 [facility] Comment on above: Order Comment: Name Collection Type:: Clean-Voided Midstream Performed By: #### U HCG, ADDONUAPLUS #### [facility] [address] [id number] [facility] Coding Summaryon 11-29-2023 Coding Summary HTMLBase 64 FzhjjecvQTa3eZn+PGhlYWQ +TP8ABXYoT19lqNVgkA5xY3 NMTElOSywgQVBQTElOSyIgb aKoIE2trFXeVXTu IC8+LR4gDGYxRshgqYVng5P 5lZP5G50vqo3xRRgqkBH0XT AcKlJuolxbn5qnvUk6TSryB mluOyBt IIYqrU22URQ0kG53Lg74nFE zeIMtt5zedAu9IjYuNIHhUX H7hLwjJNvuw8LzPDRqA01sp JJwl9G3 XIUizBosnDSbHdCzeZY6nA1 dKVibbjvop8icmreeAlo5dk 67hMZfc3S0nAJ9G7SrusV5H GJvbGQg NvtefZGQsI6gkoapr5pnahq sSeIaBYIvJIp1AGa9ISGwpM psEbYaCU10JXD5QHRtweXaG 2FsLWFs oAfyFsO7b4D8Aw6IE9MLZcv bV2DUPFFYLPjsvGM+PC90cj 28T8QqOqnzRoi5SSChJAT0b JT6jW0u AXSqELwcn8M5vGT8C7GjtmE dxq2ug4fsYTHeWBazT97uxR Pgs9W1IPAwsMS0LYJajBwnQ iBzaG93 Oyc+OLNmyPzsm8WqEybmg8y uu6sndJg2WisfTGRvlcKmvD tkGCF1k7GtTk5bKTXfeLP1c QN1tJ6x BvVtLvY6VIgbE403VxWjeEJ vFdwtN78wN2SyoBV+PHRyPj g7LAFkzKgvQX2nN4NyNEChq mctbGVm cSldPL4iPVXibnjpACIxyS6 xZRRqN1d0IrLzEtZ2DSndA8 HhVEQrkdtvQx29aD2xEaDoW hA3NUal H2OnldJ9DESylRWiFSozEFG 9O39fy8I9FFDhBDNqXPP6sV R2cH9kiTwnysxywDLquEoam mVydGlj KXlvWJjeG196FTJioUqpNxX vZGluZyBEYXRlOiAgMDkvMD YvMjAyNDwvdGQ+XCThXHX5h WxlPSAn cQJnCValZj6amAtjbSjiOF6 hZUXgrqcwKEZdfA9lCAMgqF EmtZexVB9jVJSkjxzaw919A iAxMHB0 BMTidZEzM5JkrR5tIkGhMBG gAOSzL6QboBSbKMppH163ZE hcLzD1TXUiwbKhL7IcDQQzg WduOiB0 l9C2Jl3Wi2EtttxuO6NryAD jBfNlRboiCHz8F0QbAoorrO I+CJ46HGKeGC10WAv0KPH7x WxlPSdi KZUjQ6XqvS8jEsIqPYUlRBE kOyc+PHRhYmxlIHdpZHRoPS akDISdXrIvbMduCJ1yIz8fE GVyLWNv uKbnyWQiCnBni4bqATKtDDr vOK1lrCyuT1AlrTO0QXJse9 k5Er81T67bG7JqtCP+PGNvb RN6fOG7 aX7pXcXjQqQ8KPghG266IkX vtZXsNwyjc1vbv5olxJo1Bp O3VKDjmmJrqUejVSV7a4MyX n50Z28o IHdpZHRoPSIxNSUiIHZhbGl yvh6snU7gZa8+TRAccWS2yX C5tU3fRjFjLuF6RDeeJ342F nRvcCIv Gxubn8nrt9fkmHb1AuTsGWZ cnlUxkVvwYNV4w8KbVr95U8 BxkMukl4UxWgz4ot81aKIlx 6Z0bYU9 Q0OqDSXsafvymQSlxKojSC6 kLYZbtdcxOABygA9xPCGlO7 p2FiAhXiF1BJznG8WeneP8D GJvbGQg KRJsvNZQxW8qquggn5husgz tIuDxNIEnXDn7IUn2DTBnsR jmCxQhMRL2ZzB9LFK1oMUqj U0mcNjt mmvduW7xWtx+ORG0dGIbxXF SCN3tOrphsAI+MPAfXXR7dZ vlMDvcFRIciA7gNKAkE1f5M iAwLjA1 BKaoB2XzvjD8URSkgVYzBRK phQDOeT6lsmsdn0gsbhsmVp WbZAXyLGp5SOl4YRZbfYibC iBsZWZ0 NoS3QHK3zIWuvN6fyVuhjzf cwB9xLiz+TdxkgHcuULC5RU u1S0OuLes0ILMfnHprEO1ei GFkZGlu Vu7ejUxevTkkZS6lJQPyleb sa530LpZof4rzCAPoaSHvYB zfNFE2K95sk0Z4YPTcYGZcJ EY4mYV2 pZ7tyArtrhujoOHaiDzzykJ qyDwtAPhtZWoxO418EAVzzW coFwJoZMp1T0EkKwl1OQPmy YbwQK2h uNCfPRajKr1ikDogsFqaYW6 gVCTourkoj290VmPpx7eeET GyjJDfNMsuQXW9L92ek1Q9D CMwMDAw JOU3aIZ0fK8gpOhvcfyrfWV mdDsgdmVydGljYWwtYWxpZ2 73CIZckZppExGjdOs2J1LeY de4HOSz wMzfJO1cmYMkAMcpUl2qsIi nrUxaRF1jMKIgfsdqx316Su Yme7yaGSWhqHEkJPuqNNV8N 78if7B0 HNXiXVZvZKQ6lZP4vL8vsQq nbjogbGVmdDsgdmVydGljYW riRAfcK101QQYdkSxkEmWpw GllbnQg TEfkQIg1G5RtXdkhpJL+PC9 7VFQkLU57kWWwzQVib4efcZ t3IhIkIDMeZOJ7mJpgUCgun 3JkZXIt G65abUSyc4H3WWCeaIqvbGG pIjQumWA3uR7bQWikdtijg5 jeimujKqhrd4lqad52nF33U 29sIHdp ZHRoPSIzMCUiIHZhbGlnbj0 fpH2lTu6+SKHowHN1uFL4gR 2bBYBvVqY2EFcyE740VeYez CIvPjxj q7xbk8nkiVs8TeH1JTZrdiI suLuvYYT8u3OlFm81B41pBW dpZHRoPSIyMCUiIHZhbGlnb b1iaA1k Ii8+ZTZbpZA4cSE2eX4qNaU oTdD7GEkoB863DeHoeUMkMs mkV24aD7XrrWY+YIHhLnh4J CBzdHls DC6azMTgCEizRo6vXUD0MzC oGrEdHJldL9HxPLWmlngcre axmLC5KTTvKVIgxE42Lf5ag DogMTBw xIYVnN6gpkbvy3hjngquDhK xYGRlTXa6UQb3YKMqlJixKq JvPUU5RnR6BDI7gIIspE6fu Glnbjog eO4tQ7RrGRLstvuuRj50pD6 zIdEaByK4HRwyTij+TElFQi opNBMDEJUGLXNHHhiOKnK3L 9WnKqs7 KNMosOevSM3nyCUnNWpdJu7 fyQiveCxvGP7fFRKdlvvoUM PmiN5eODLaqKOpmQvjBK3wB TBpbjtm s011QqVvJPF9JRJlyMKjR2P jzW3mFlYoCXUjQRGxH1OakV VkJLynB421OLshMpL4IYOlg fXkW8Vk DJSrzYijYsC0t2P4Ln6xRj5 pBG1vQZf6MV18MT62dRHyq7 K6vZZ0J1EuYGNrnpmmzyqcj MF3IEMc GWNzrW04bJChFPioTj6pm1Y 8h929DATqWTKviZ76Lg2wuW tjPQWbuOPNoZ9rktvdn7lps jogIzAw RIIwCQs8DTy6QSEbiJnhYhL tCRZ1ZmI2AEC2dGZgoZ8klZ apofsgyF2cPer+NDYgWWVhc jK0T6Ar Upq4IKSneIkdCB1jzGUnQGz rKb5fhCktzYabDV1rTGWivv exFAVaxI3qYVLzxMOysRclZ H6kOABl dtlsc506DfXjADK7TWNoxDB vR4IhoO0gZmEjDOAqYJZsC2 JjpGQrKIepE972YExnUoO8E HZlcnRp W6SgISGyfBquTuB2e5L4Ar1 IFH1OWSB2J0XuWov1RCDyxG qoFS9idZNnHIhyKv5ygNdbn QcnOO6p WRSlvgmaMYLnjW5yCESzuAY hgKosLQ9wIBElhxxme871Hj SaCUM9GBIgqOFvJ9UbjF1wW iAjMDAw NTGyH9ErlZYrSZmoM445CKe pYkY0GMPlrgRcW9LhWOTemB olVzZ6c1S2Sf4MwAZkB1UdX 4s2Z1Rz PjwvdHI+BR35UOKtKJ47uOY nlEGlb3nviIn2PeFfDHEkGG H3qJizSCqhg9DaZQXqK33sm TEaz8Z5 AWCxuRjaePSqEzOjsGE7cF5 gAPbpdmfwy1opmwyiCqeps2 kvzp27iF44W85lZIsmOAMqL SIzMCUi JWEcbRideb6pbH8xYe8+PGN doNB8kUT9tW0gEvDsPnP2UA gpH784NaFdrQWhZmeia2jay 7rxpCw7 HaQyYXMrsePsoOkwSFA5d4I hUe47Q20gRLutZCDxWOCiWE LxJUNsfDrfvh1nnF0fZt5+P T6rv2ga hw27jF44uLR+DZKmZZE7qNh oQBusIDFjrV5eLYfuRwW3YD FdQpNelY88gISqHKmxJj6yz WdodDog OU5tMCNpbgixg729RyAtl7a oLWGybSRqAWwnYTY8J79fb6 V7LOQdBSVsTZX3zIH0iF7rv Glnbjog bGVmdDsgdmVydGljYWwtYWx cL120FWZfcBatRkMfjBFoG4 cttsJINK1fKlmnjIX+PHRkI HX7nRwb HYtgQDGxaA5hUPKpD4l5QbL dYqK5BZezG6GcojU1VFIuaL WqAVOvjXYIjG0xmxmxs8vue jogIzAw PEGeRYo6EJs7KXIufKvnCaC pXPH5FfQ3AOT6dEKifW0kqJ bbhypnhH8uJxg+RklOOjwvd GQ+PHRk RQX9sHcoLZrfCISapZ3dGPA jU8y0PjVaMmW1OVmzY6Jgho X8QPMtlHTsVXTutQUHzW1ji nyoy5sb cnuyFvLuGAWdKNz2XGg6XQM avRsmKdNtTJD5GyQ9FHL9lE ZamE4peMcjndamyV4zThs+T VJOOjwv dGQ+SYFdNSR8eBcoGQrjNYM mnW4vVRSvB2h8VvXtMfZ6DD szW8EjdxX4NYUkaILyWTTwa IBSzP1b lqwyi4ikkakdTtExGVFdXVy 0CZe4OQMxvKysXuMaRUW6Op Q0QXX8kXRvaH8blCyxulbtv G9wOyc+ ASO2LMC2QL36JP84X0ZpCqq vdGFibGU+PHRhYmxlIHdpZH ZbTVjnBFAaJmPqcBmeER0fB l7pGRTo LWN (more content not included)... Normal [facility] ED Note-Physicianon 11-28-19 ED Note-Physician Normal [facility] Comment on above: Result Comment: Elec tronically Signed By: Manuel Naik PA-C\.br\Date and Time Signed: 11/27/23 23:56 EDT\.br\Electronically Co-Signed By: Balbina Bryant M.D.\.br\Date and Time Co-Signed: 11/28/23 07:50 EDT ED Clinical Summaryon 2023 ED Clinical Summary Normal [facility] ED Patient Education Noteon 11-27-2023 ED Patient Education Note Normal [facility] ED Patient Summaryon 024 ED Patient Summary Normal [facility] SPLUMBWon 11-27-[address] [address] [address] Scan Report Signed with Mino Patient Name: Jerad Tracy [facility] R ecord #: [id number] Date of : 1975 Account #:[id number] Age/Sex: 48 / F Location: ED Attending physician: Ordering Provider: Flex Veliz MD Date of Service: 11/26/23 Procedure(s): CT lumbar spine w con ADDENDUM: 100 ml Visipaque 320 IV contrast was administered. Addendum Dictated By: Sean Simmons MD Addendum Signed By: 11/27/231622 DD/ /16/999 TD/TT: 11/27/2307/17/1507 HISTORY: A spine [...] Dictated By: Sean Simmons MD Signed By: 11/27/23952 DD/ 9 TD/TT: 11/27/23949 Ice Puller: [facility] Exam/Order Verified? Y Exam Explained to Patient/Family? Y Was Patient Shielded? N Is Patient ? N Consent Form Completed? Hx Last Menstrual Period: NO CHANCE Does Patient have a Diabetic Device? No Diabetic Device Type: Was the Diabetic Device Removed? If NO: was Removal Consent form completed? Patient was informed of radiation exposure prior to scan? Verified by Technologist:[id number] Comment: cc: Flex Veliz MD PCP,No Normal [facility] Absolute eosinophil countOrd ered By: Flex Veliz on 11-26-2023 Histamine release from basophils measurement Histamine release from basophils measurement 0.0-0.4 [facility] Automated absolute lymphocyt e countOrdered By: Flex Veliz on 11-26-2023 Lymphocytes # (Auto) 2.6 10'3/uL 0.5-3.5 [facility] Automated absolute neutrophi l countOrdered By: Flex Veliz on 11-26-2023 Absolute Neutrophil 8.5 10'3/uL High 1.5-5.6 [facility] BUN venousOrdered By: Flex castillo on 11-26-2023 Urea nitrogen (BldV) [Mass/Vol] BUN venous 7-18 [facility] Basic Metabolic Panelon 09 Anion gap [Moles/Vol] 14 mmol/L High 5-13 [facility] Comment on above: Performed By: #### B M, CRP #### [facility] [address] [place] [address] Calcium [Mass/Vol] 9.1 mg/dL Normal 8.4-10.2 [facility] Comment on above: Performed By: #### B M, CRP #### [facility] [address] [place] [address] Chloride [Moles/Vol] 108 mmol/L High 98-107 [facility] Comment on above: Performed By: #### B M, CRP #### [facility] [address] [place] [address] CO2 [Moles/Vol] 20 mmol/L Low 22-29 [facility] Comment on above: Performed By: #### B M, CRP #### [facility] [address] [place] [address] Creatinine [Mass/Vol] 0.77 mg/dL Normal 0.57-1.11 [facility] Comment on above: Performed By: #### B M, CRP #### [facility] [address] [place] [address] GFR/1.73 sq M.predicted among non-blacks MDRD (S/P/Bld) [Vol rate/Area] mL/min/{1.73_m2} Normal mL/min/1.73m 2 [facility] Comment on above: Performed By: #### Martha M, CRP #### [facility] [address] [place] [address] Glucose [Mass/Vol] 105 mg/dL High 70-100 [facility] Comment on above: Performed By: #### Martha M, CRP #### [facility] [address] [place] [address] Potassium [Moles/Vol] 3.5 mmol/L Normal 3.5-5.1 [facility] Comment on above: Performed By: #### Martha Nguyen, CRP #### [facility] [address] [place] [address] Sodium [Moles/Vol] 142 mmol/L Normal 136-145 [facility] Comment on above: Performed By: #### Martha Nguyen, CRP #### [facility] [address] [place] [address] Urea nitrogen [Mass/Vol] 10 mg/dL Normal 7-18 [facility] Comment on above: Performed By: #### Martha Nguyen, CRP #### [facility] [address] [place] [address] Basophils Auto (Bld) [#/Vol] Ordered By: Flex Veliz on 11-26-2023 Basophils (Bld) [#/Vol] Automated basophil count Low 0.1-0.2 [facility] Basophils/100 WBC Auto (Bld) Ordered By: Flex Veliz on 11-26-2023 Basophils/100 WBC (Bld) Automated basophil % 0-1 [facility] Blood anion gapOrdered By: Seng Veliz on 11-26-2023 Anion gap (Bld) [Moles/Vol] Blood anion gap High 5-13 [facility] Blood erythrocytes count (nu mber/volume)Ordered By: Flex Veliz on 11-26-2023 RBC (Bld) [#/Vol] Blood erythrocytes count (number/volume) 3.85-4.88 [facility] Blood platelets count (numbe r/volume)Ordered By: Flex Veliz on 11-26-2023 Platelets (Bld) [#/Vol] Platelet count blood High 122-359 [facility] C Reactive Proteinon 024 C Reactive Protein 1.0 mg/dL High <0.6 [facility] Comment on above: Performed By: #### B M, CRP #### [address] [place] [address] C reactive protein measureme ntOrdered By: Flex Veliz on 11-26-2023 C-Reactive Protein 1.0 mg/dL High <0.6 [facility] Calcium measurement (mass/vo lume)Ordered By: Flex Veliz on 11-26-2023 Calcium (Unsp spec) [Mass/Vol] Calcium measurement (mass/volume) 8.4-10.2 [facility] Complete Blood Count with Di ffon 11-26-2023 Basophils Absolute Auto 0.0 10'3/uL Low 0.1-0.2 [facility] Comment on above: Performed By: #### C BCD #### [address] [place] [address] Basophils/100 WBC (Bld) 0 % Normal 0-1 [facility] Comment on above: Performed By: #### C BCD #### [id number] [place] [address] Eosinophils Absolute Auto 0.1 10'3/uL Normal 0.0-0.4 [facility] Comment on above: Performed By: #### C BCD #### [id number] [place] [address] Eosinophils/100 WBC (Bld) 1 % Low 2-5 [facility] Comment on above: Performed By: #### C BCD #### [address] [place] [address] Erythrocyte distribution width (RBC) [Ratio] 13.2 % Normal 12.2-15.8 [facility] Comment on above: Performed By: #### C BCD #### [facility] [address] [place] [address] Hematocrit (Bld) [Volume fraction] 41.1 % Normal 34.6-44.1 [facility] Comment on above: Performed By: #### C BCD #### [facility] [address] [place] [address] Hemoglobin (Bld) [Mass/Vol] 13.8 g/dL Normal 11.7-14.9 [facility] Comment on above: Performed By: #### C BCD #### [facility] [address] [place] [address] Lymphocytes Absolute Auto 2.6 10'3/uL Normal 0.5-3.5 [facility] Comment on above: Performed By: #### C BCD #### [facility] [address] [place] [address] Lymphocytes/100 WBC (Bld) 22 % Normal 20-35 [facility] Comment on above: Performed By: #### C BCD #### [address] [place] [address] MCH (RBC) [Entitic mass] 31.1 pg Normal 27.8-33.2 [facility] Comment on above: Performed By: #### C BCD #### [facility] [address] [place] [address] MCV (RBC) [Entitic vol] 92.6 fL Normal 83.0-97.4 [facility] Comment on above: Performed By: #### C BCD #### [facility] [address] [place] [address] Mean Corpuscular HGB Conc 33.6 g/dL Normal 32.7-34.8 [facility] Comment on above: Performed By: #### C BCD #### [facility] [address] [place] [address] Monocytes Absolute Auto 0.7 10'3/uL Normal 0.2-0.8 [facility] Comment on above: Performed By: #### C BCD #### [facility] [address] [place] [address] Monocytes/100 WBC (Bld) 6 % Normal 4-12 [facility] Comment on above: Performed By: #### C BCD #### [address] [place] [address] Neutrophil # 8.5 10'3/uL High 1.5-5.6 [facility] Comment on above: Performed By: #### C BCD #### [facility] [address] [place] [address] Neutrophils/100 WBC (Bld) 71 % Normal 41-72 [facility] Comment on above: Performed By: #### C BCD #### [id number] [place] [address] Platelet Count 400 10'3/uL High 122-359 [facility] Comment on above: Performed By: #### C BCD #### [facility] [address] [place] [address] Platelet mean volume (Bld) [Entitic vol] 9.7 fL Normal 7.6-10.6 [facility] Comment on above: Performed By: #### C BCD #### [facility] [address] [place] [address] Red Blood Count 4.44 10'6/uL Normal 3.85-4.88 [facility] Comment on above: Performed By: #### C BCD #### [facility] [address] [place] [address] White Blood Count 11.9 10'3/uL High 3.2-9.3 [facility] Comment on above: Performed By: #### C BCD #### [address] [place] [address] Creatinine (Bld) [Mass/Vol]O rdered By: Flex Veliz on 11-26-2023 Creatinine [Mass/Vol] Blood creatinine measurement (mass/volume) 0.57-1.11 [facility] EDon 11-26-2023 ED [facility] [address] [place] [address] Emergency Department Note Signed Patient Name: Jerad Tracy [facility] [address] #: [id number] Date of : 1975 Account #: [id number] Age/Sex: 48 / F Location: ED Attending [...] to have another one placed at the [facility] where she had her previous surgery. However, [...] History History Provided by: Patient Preferred Language: Cambodian Usual Living Arrangement: With Spouse/Significant Other Smoking [...] with scant (more content not included)... Normal [facility] ED Clinical Summaryon 2023 ED Clinical Summary [facility] Emergency Department [address] [place] [address] [id number] ED Clinical Summary PERSON INFORMATION Name: JERAD TRACY Age: 48 Years Sex: FEMALE : 1975 MRN: Acct#: Visit Reason: Post surgical problem; BACK PAIN Arrival: 11/26/2023 18:54:46 Discharge: 11/26/2023 20:00:00 LOS: 000 01:06 Check In: 11/26/2023 18:54:46 Checkout:11/26/2023 20:00:00 Address: [address] [place] [id number] PCP: Cheyanne Mckeon PROVIDER INFORMATION VITALS INFORMATION [...] r verbalizes understanding of instructions given Comment: [facility] ED Patient Education Noteon 11-26-2023 ED Patient Education Note Education Materials [facility] ED Patient Summaryon 024 ED Patient Summary [facility] Emergency Department [address] [place] [id number] PATIENT DISCHARGE INSTRUCTIONS Patient Information Name: JERAD TRACY Age: 48 Years Date of : 1975 [facility]: [id number] Reason For Visit: Post surgical problem; BACK PAIN Arrival Time: 11/26/2023 18:54:46 Primary Care Physician: Cheyanne Mckeon Attending Physician: Kristin Bryant MD Comment: Visit Diagnosis: Diagnoses This Visit Post surgical problem ([id number]) The Pharmacy at [facility] is open Saturday through Saturday from [...] alcohol and/or drug addiction problems; contact the [facility] 15/10 Crisis Hotline -text 4hope to 741741. If you received any narcotics, sedation, or [...] and treatment you received today in the [facility] Emergency Department were for an urgent problem and are not intended as complete care. It is important for you to follow up with a doctor, nurse practitioner, or physician?s insurance administrative assistant for ongoing care. If your symptoms [...] so we can reach you if necessary. [facility] Emergency Department has provided you with a complete list of medications post discharge. 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 heel seat laster/provider of your visit and for further instruction [...] Disease Control and Prevention November 2013 Normal [facility] Eosinophils/100 WBC Auto (Bl d)Ordered By: Flex Veliz on 11-26-2023 Eosinophils/100 WBC (Bld) Eosinophil percentage, automated Low 2-5 [facility] Estimated glomerular filtrat ion rate (GFR) determinationOrdered By: Flex Veliz on 11-26-2023 GFR/1.73 sq M.predicted among non-blacks MDRD (S/P/Bld) [Vol rate/Area] mL/min/{1.73_m2} mL/min/1.73m 2 [facility] Hematocrit Auto (Bld) [Volum e fraction]Ordered By: Flex Veliz on 11-26-2023 Hematocrit (Bld) [Volume fraction] Automated blood hematocrit (percentage) 34.6-44.1 [facility] Laboratory - UrinalysisOrder ed By: Flex Veliz on 11-26-2023 Leukocyte esterase Test strip Ql (U) Trace Negative [facility] Lymphocyte percentage, autom atedOrdered By: Flex Veliz on 11-26-2023 Lymphocytes/100 WBC (Bld) 22 % 20-35 [facility] MCV (mean corpuscular volume ) determinationOrdered By: Flex Veliz on 11-26-2023 MCV (RBC) [Entitic vol] Determination of erythrocyte mean corpuscular volume (MCV) 83.0-97.4 [facility] Mean corpuscular hemoglobin (MCH) determinationOrdered By: Flex Veliz on 11-26-2023 MCH (RBC) [Entitic mass] 31.1 pg 27.8-33.2 [facility] Mean corpuscular hemoglobin concentration (MCHC) determinationOrdered By: Flex Veliz on 11-26-2023 MCHC (RBC) [Mass/Vol] 33.6 g/dL 32.7-34.8 [facility] Monocytes Auto (Bld) [#/Vol] Ordered By: Flex Veliz on 11-26-2023 Monocytes (Bld) [#/Vol] Automated blood monocyte count 0.2-0.8 [facility] Monocytes/100 WBC Auto (Bld) Ordered By: Flex Veliz on 11-26-2023 Monocytes/100 WBC (Bld) Monocyte percentage, automated 4-12 [facility] MpvOrdered By: Flex castro n 11-26-2023 Platelet mean volume (Bld) [Entitic vol] 9.7 fL 7.6-10.6 [facility] Mucus LM Ql (Urine sed)Order ed By: Flex Veliz on 11-26-2023 Mucus Ql (Urine sed) Mucus detection in urine sediment by light microscopy [facility] Neutrophils/100 WBC Manual c nt (Bld)Ordered By: Flex Veliz on 11-26-2023 Neutrophils/100 WBC (Bld) Manual blood neutrophil count as percentage of leukocytes 41-72 [facility] No Panel InformationOrdered By: Flex Veliz on 11-26-2023 Urine Bacteria Trace /hpf 0 [facility] Occult blood ur QLOrdered By : Flex Veliz on 11-26-2023 Hemoglobin Ql (U) Occult blood ur QL Negative [facility] RDWOrdered By: Flex Veliz o n 11-26-2023 Erythrocyte distribution width (RBC) [Ratio] 13.2 % 12.2-15.8 [facility] Serum or plasma carbon dioxi de measurement (moles/volume)Ordered By: Flex Veliz on 11-26-2023 CO2 [Moles/Vol] Serum or plasma tota l carbon dioxide measurement (moles/volume) Low 22-29 [facility] Serum or plasma chloride florin surement (moles/volume)Ordered By: Flex Veliz on 11-26-2023 Chloride [Moles/Vol] Serum or plasma chloride measurement (moles/volume) High 98-107 [facility] Serum or plasma glucose skyla urement (mass/volume)Ordered By: Flex Veliz on 11-26-2023 Glucose [Mass/Vol] Serum glucose measurement (mass/volume) High 70-100 [facility] Serum or plasma potassium me asurement (moles/volume)Ordered By: Flex Veliz on 11-26-2023 Potassium [Moles/Vol] Serum or plasma potassium measurement (moles/volume) 3.5-5.1 [facility] Specific gravity Test strip (U) [Rel density]Ordered By: Flex Veliz on 11-26-2023 Specific gravity (U) [Rel density] Specific gravity ur dipstick 1.005-1.030 [facility] Squamous epithelial cells de tection in urine sediment by light microscopyOrdered By: Flex Veliz on 11-26-2023 Epithelial cells.squamous LM Ql (Urine sed) Squamous epithelial cells detection in urine sediment by light microscopy 0 [facility] UA with Reflex Cultureon Bacteria Urine TRACE Normal 0 [facility] Comment on above: Performed By: #### U AREFLEX #### [facility] [address] [place] [address] Mucus Urine 1+ /hpf Normal [facility] Comment on above: Performed By: #### U AREFLEX #### [facility] [address] [place] [address] Squamous Epithelial Cell Urine 6-10 Normal 0 [facility] Comment on above: Performed By: #### U AREFLEX #### [facility] [address] [place] [address] WBC Urine 0-2 Normal 0 [facility] Comment on above: Performed By: #### U AREFLEX #### [facility] [address] [place] [address] Appearance (U) CLEAR Normal CLEAR [facility] Comment on above: Performed By: #### U AREFLEX #### [facility] [address] [place] [address] Bilirubin Urine Negative Normal Negative [facility] Comment on above: Performed By: #### U AREFLEX #### [facility] [address] [place] [address] Color (U) YELLOW Normal YELLOW [facility] Comment on above: Performed By: #### U AREFLEX #### [facility] [address] [place] [address] Glucose Urine UA Negative Normal Negative [facility] Comment on above: Performed By: #### U AREFLEX #### [facility] [address] [place] [address] Ketones Ql (U) Negative Normal Negative [facility] Comment on above: Performed By: #### U AREFLEX #### [facility] [address] [place] [address] Leukocyte esterase Test strip Ql (U) TRACE Normal Negative [facility] Comment on above: Performed By: #### U AREFLEX #### [facility] [address] [place] [address] Nitrite Urine Negative Normal NEGATIVE [facility] Comment on above: Performed By: #### U AREFLEX #### [facility] [address] [place] [address] Occult Blood Urine Negative Normal Negative [facility] Comment on above: Performed By: #### U AREFLEX #### [facility] [address] [place] [address] pH (U) 7.0 [pH] Normal 5.5-8.0 [facility] Comment on above: Performed By: #### U AREFLEX #### [facility] [address] [place] [address] Protein Urine (Multistix) Negative Normal Negative [facility] Comment on above: Performed By: #### U AREFLEX #### [place] [id number] [place] [address] Specific Salcha Urine 1.015 Normal 1.005-1.[address] [facility] Comment on above: Performed By: #### U AREFLEX #### [place] [id number] [place] [address] Urobilinogen Urine 0.2 EU/dL Normal 0.2-1.0 [facility] Comment on above: Performed By: #### U AREFLEX #### [place] [id number] [place] [address] Urine appearance determinati onOrdered By: Flex Veliz on 11-26-2023 Appearance (U) Urine appearance CLEAR [facility] Urine bilirubin measurementO rdered By: Flex Veliz on 11-26-2023 Bilirubin Ql (U) Negative Negative [facility] Urine color determinationOrd ered By: Flex Veliz on 11-26-2023 Color (U) Urine color YELLOW [facility] Urine glucose detection by a utomated test stripOrdered By: Flex Veliz on 11-26-2023 Glucose Auto test strip Ql (U) Urine glucose detection by automated test strip Negative [facility] Urine ketones measurementOrd ered By: Flex Veliz on 11-26-2023 Ketones Ql (U) Negative Negative [facility] Urine microscopic examinatio n for leukocytesOrdered By: Flex Veliz on 11-26-2023 Urine Microscopic WBC 0-2 /hpf 0 [facility] Urine nitrite detection by a utomated test stripOrdered By: Flex Veliz on 11-26-2023 Nitrite Auto test strip Ql (U) Urine nitrite detection by automated test strip NEGATIVE [facility] Urine pH measurementOrdered By: Flex Veliz on 11-26-2023 pH (U) pH of Urine 5.5-8.0 [facility] Urine protein measurementOrd ered By: Flex Veliz on 11-26-2023 Protein Ql (U) Negative Negative [facility] Urine urobilinogen measureme ntOrdered By: Flxe Veliz on 11-26-2023 Urobilinogen Ql (U) Urine urobilinogen measurement 0.2-1.0 [facility] Venous blood sodium measurem entOrdered By: Flex Veliz on 11-26-2023 Sodium (BldV) [Moles/Vol] Venous blood sodium measurement 136-145 [facility] WBC totalOrdered By: Flex milton on 11-26-2023 White Blood Count 11.9 10'3/uL High 3.2-9.3 [facility] Whole blood hemoglobin measu rement (mass/volume)Ordered By: Flex Veliz on 11-26-2023 Hemoglobin (Bld) [Mass/Vol] Blood hemoglobin measurement (mass/volume) 11.7-14.9 [facility] Alanine aminotransferase [En zymatic activity/volume] in Serum or PlasmaOrdered By: José Miguel Mcnamara on 11-25-2023 ALT [Catalytic activity/Vol] 22 U/L Normal [facility] Comment on above: Performed By: #### U HCG, ADDONUAPLUS #### [address] ALT [Catalytic activity/Vol] Alanine aminotransferase [Enzymatic activity/volume] in Serum or Plasma [facility] Albumin [Mass/volume] in Ser um or Plasma by Bromocresol green (BCG) dye binding methoOrdered By: José Miguel Mcnamara on 11-25-2023 Albumin BCG dye [Mass/Vol] 3.8 g/dL 3.5-5.7 [facility] Albumin BCG dye [Mass/Vol] Albumin [Mass/volume] in Serum or Plasma by Bromocresol green (BCG) dye binding metho 3.5-5.7 [facility] Alkaline phosphatase [Enzyma tic activity/volume] in Serum or PlasmaOrdered By: José Miguel Mcnamara on 11-25-2023 ALP [Catalytic activity/Vol] 65 U/L Normal [facility] Comment on above: Performed By: #### U HCG, ADDONUAPLUS #### [facility] [address] ALP [Catalytic activity/Vol] Alkaline phosphatase [Enzymatic activity/volume] in Serum or Plasma [facility] Aspartate aminotransferase [ Enzymatic activity/volume] in Serum or PlasmaOrdered By: José Miguel Mcnamara on 11-25-2023 AST [Catalytic activity/Vol] 18 U/L Normal [facility] Comment on above: Performed By: #### U HCG, ADDONUAPLUS #### [facility] [address] [place] [address] AST [Catalytic activity/Vol] Aspartate aminotransferase [Enzymatic activity/volume] in Serum or Plasma [facility] Automated basophil %Ordered By: José Miguel Mcnamara on 11-25-2023 Basophils/100 WBC (Bld) 0.5 % Normal . [facility] Comment on above: Performed By: #### U HCG, ADDONUAPLUS #### [facility] [address] [place] [address] Automated basophil countOrde red By: José Miguel Mcnamara on 11-25-2023 Basophils (Bld) [#/Vol] 0.1 10*3/uL Normal 0.0-0.2 [facility] Comment on above: Result Comment: PERF ORMED BY: [place] [address] PATHOLOGIST TUBE 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 JASON WILSON M.D. Performed By: #### U HCG, ADDONUAPLUS #### [facility] [address] [place] [address] Automated blood monocyte cou ntOrdered By: José Miguel Baezacarlos on 11-25-2023 Monocytes (Bld) [#/Vol] 0.8 10*3/uL Normal 0.0-0.8 [facility] Comment on above: Performed By: #### U HCG, ADDONUAPLUS #### [facility] [address] [place] [address] Automated eosinophil %Ordere d By: José Miguel Baezacarlos on 11-25-2023 Eosinophils/100 WBC (Bld) 1.4 % Normal . [facility] Comment on above: Performed By: #### U HCG, ADDONUAPLUS #### [address] Automated eosinophil countOr dered By: José Miguel Naima on 11-25-2023 Eosinophils (Bld) [#/Vol] 0.1 10*3/uL Normal 0.0-0.45 [facility] Comment on above: Performed By: #### U HCG, ADDONUAPLUS #### [address] Automated monocyte %Ordered By: José Miguel Mcnamara on 11-25-2023 Monocytes/100 WBC (Bld) 7.6 % Normal . [facility] Comment on above: Performed By: #### U HCG, ADDONUAPLUS #### [address] Automated neutrophil %Ordere d By: José Miguel Mcnamara on 11-25-2023 Neutrophils/100 WBC (Bld) 64.0 % Normal . [facility] Comment on above: Performed By: #### U HCG, ADDONUAPLUS #### [address] Basic Metabolic Panelon Creatinine Clr Calc Pharmacy 94.23 Normal [facility] Comment on above: Result Comment: PERF ORMED BY: [place] [address] PATHOLOGIST TUBE 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 JASON WILSON M.D. Performed By: #### U HCG, ADDONUAPLUS #### [facility] [address] [place] [address] [place] GFR/1.73 sq M.predicted MDRD (S/P/Bld) [Vol rate/Area] mL/min/{1.73_m2} Normal [facility] Comment on above: Performed By: #### U HCG, ADDONUAPLUS #### [facility] [address] [place] [address] [place] Basophils Auto (Bld) [#/Vol] Ordered By: José Miguel Mcnamara on 11-25-2023 Basophils (Bld) [#/Vol] Automated basophil count 0.0-0.2 [facility] Basophils/100 WBC Auto (Bld) Ordered By: José Miguel Mcnamara on 11-25-2023 Basophils/100 WBC (Bld) Automated basophil % . [facility] Bilirubin.direct [Mass/volum e] in Serum or PlasmaOrdered By: José Miguel Mcnamara on 11-25-2023 Bilirubin.direct [Mass/Vol] 0.00 mg/dL Low 0.03-0.18 [facility] Comment on above: If the DBIL is less than 0.1, IBIL is not able to becalculated. Bilirubin.direct [Mass/Vol] Bilirubin.direct [Mass/volume] in Serum or Plasma Low 0.03-0.18 [facility] Comment on above: If the DBIL is less than 0.1, IBIL is not able to becalculated. Bilirubin.total [Mass/volume ] in Serum or PlasmaOrdered By: José Miguel Mcnamara on 11-25-2023 Bilirubin [Mass/Vol] 0.2 mg/dL Low 0.3-1.0 [facility] Comment on above: Performed By: #### U HCG, ADDONUAPLUS #### [facility] [address] Bilirubin [Mass/Vol] Bilirubin.total [Mass/volume] in Serum or Plasma Low 0.3-1.0 [facility] Calcium [Mass/volume] in Ser um or PlasmaOrdered By: José Miguel Mcnamara on 11-25-2023 Calcium [Mass/Vol] 8.2 mg/dL Low 8.6-10.3 [facility] Comment on above: Performed By: #### U HCG, ADDONUAPLUS #### [facility] [address] Calcium [Mass/Vol] Calcium [Mass/volume ] in Serum or Plasma Low 8.6-10.3 [facility] Carbon dioxide, total [Moles /volume] in Serum or PlasmaOrdered By: José Miguel Mcnamara on 11-25-2023 CO2 [Moles/Vol] 26.0 mmol/L Normal 21.0-31.0 [facility] Comment on above: Performed By: #### U HCG, ADDONUAPLUS #### [facility] [address] CO2 [Moles/Vol] Carbon dioxide, tota l [Moles/volume] in Serum or Plasma 21.0-31.0 [facility] Chloride [Moles/volume] in S saw or PlasmaOrdered By: José Miguel Mcnamara on 11-25-2023 Chloride [Moles/Vol] 106 mmol/L Normal 98-107 [facility] Comment on above: Performed By: #### U HCG, ADDONUAPLUS #### [facility] [address] [place] [address] [place] Chloride [Moles/Vol] Chloride [Moles/vol ume] in Serum or Plasma 98-107 [facility] Complete Blood Count Auto Di ffon 11-25-2023 Mean Corpuscular HGB Conc 33.6 g/dL Normal 32.0-35.0 [facility] Comment on above: Performed By: #### U HCG, ADDONUAPLUS #### [facility] [address] [place] [address] [place] Monocytes/100 WBC (Bld) 19.84 % Normal 0.00-20.00 [facility] Comment on above: Performed By: #### U HCG, ADDONUAPLUS #### [facility] [address] [place] [address] [place] NRBC% 0.2 /100{WBC} Normal 0-0.5 [facility] Comment on above: Performed By: #### U HCG, ADDONUAPLUS #### [facility] [address] Creatinine [Mass/volume] in Serum or PlasmaOrdered By: José Miguel Mcnamara on 11-25-2023 Creatinine [Mass/Vol] 0.92 mg/dL Normal 0.60-1.20 [facility] Comment on above: Performed By: #### U HCG, ADDONUAPLUS #### [facility] [address] Creatinine [Mass/Vol] Creatinine [Mass/volume] in Serum or Plasma 0.60-1.20 [facility] Eosinophils Auto (Bld) [#/Vo l]Ordered By: José Miguel Mcnamara on 11-25-2023 Eosinophils (Bld) [#/Vol] Automated eosinophil count 0.0-0.45 [facility] Eosinophils/100 WBC Auto (Bl d)Ordered By: José Miguel Mcnamara on 11-25-2023 Eosinophils/100 WBC (Bld) Automated eosinophil % . [facility] Erythrocyte distribution wid th Auto (RBC) [Ratio]Ordered By: José Miguel Mcnamara on 11-25-2023 Erythrocyte distribution width (RBC) [Ratio] Erythrocyte distribution width [Ratio] by Automated count 11.9-15.3 [facility] Erythrocyte distribution wid th [Ratio] by Automated countOrdered By: José Miguel Mcnamara on 11-25-2023 Erythrocyte distribution width (RBC) [Ratio] 14.0 % Normal 11.9-15.3 [facility] Comment on above: Performed By: #### U HCG, ADDONUAPLUS #### [facility] [address] [place] [address] [place] Erythrocytes [#/volume] in B lood by Automated countOrdered By: José Miguel Mcnamara on 11-25-2023 RBC (Bld) [#/Vol] 3.94 10*6/uL Normal 3.60-5.00 [facility] Comment on above: Performed By: #### U HCG, ADDONUAPLUS #### [facility] [address] [place] [address] Globulin Calc (S) [Mass/Vol] Ordered By: José Miguel Mcnamara on 11-25-2023 Globulin (S) [Mass/Vol] Serum globulin measurement by calculation (mass/volume) [facility] Glucose [Mass/volume] in Ser um or PlasmaOrdered By: José Miguel Mcnamara on 11-25-2023 Glucose [Mass/Vol] 105 mg/dL High 70-100 [facility] Comment on above: ADA recommended refe rence rangeRandom Glucose Reference Range is dependent on time and content of last meal. Glucose of more than 200 mg/dL in a nonstressed, ambulatory subject supports the diagnosis of Diabetes Mellitus. Result Comment: [place] om Glucose Reference Range is dependent on time and content of last meal. Glucose of more than 200 mg/dL in a nonstressed, ambulatory subject supports the diagnosis of Diabetes Mellitus. ADA recommended reference range Performed By: #### U HCG, ADDONUAPLUS #### [facility] [address] [place] [address] Glucose [Mass/Vol] Glucose [Mass/volume ] in Serum or Plasma High 70-100 [facility] Comment on above: ADA recommended refe rence rangeRandom Glucose Reference Range is dependent on time and content of last meal. Glucose of more than 200 mg/dL in a nonstressed, ambulatory subject supports the diagnosis of Diabetes Mellitus. Hematocrit Auto (Bld) [Volum e fraction]Ordered By: José Miguel Mcnamara on 11-25-2023 Hematocrit (Bld) [Volume fraction] Hematocrit [Volume Fraction] of Blood by Automated count 34.0-46.4 [facility] Hematocrit [Volume Fraction] of Blood by Automated countOrdered By: José Miguel Mcnamara on 11-25-2023 Hematocrit (Bld) [Volume fraction] 37.0 % Normal 34.0-46.4 [facility] Comment on above: Performed By: #### U HCG, ADDONUAPLUS #### [facility] [address] [place] [address] [place] Hemoglobin [Mass/volume] in BloodOrdered By: José Miguel Mcnamara on 11-25-2023 Hemoglobin (Bld) [Mass/Vol] 12.4 g/dL Normal 11.8-15.4 [facility] Comment on above: Performed By: #### U HCG, ADDONUAPLUS #### [facility] [address] [place] [address] [place] Hemoglobin (Bld) [Mass/Vol] Hemoglobin [Mass/volume] in Blood 11.8-15.4 [facility] Hepatic Panelon 11-25-2023 Albumin [Mass/Vol] 3.8 g/dL Normal 3.5-5.7 [facility] Comment on above: Performed By: #### U HCG, ADDONUAPLUS #### [facility] [address] Bilirubin,Indirect 0.2 mg/dL Normal [facility] Comment on above: Performed By: #### U HCG, ADDONUAPLUS #### [facility] [address] Bilirubin.indirect [Mass/Vol] 0.00 mg/dL Low 0.03-0.18 [facility] Comment on above: Result Comment: If t he DBIL is less than 0.1, IBIL is not able to be calculated. Performed By: #### U HCG, ADDONUAPLUS #### [address] Leukocytes [#/volume] correc lisa for nucleated erythrocytes in Blood by Automated counOrdered By: José Miguel Mcnamara on 11-25-2023 WBC corrected for nucl RBC Auto (Bld) [#/Vol] 9.9 10*3/uL 3.8-11.6 [facility] WBC corrected for nucl RBC Auto (Bld) [#/Vol] Leukocytes [#/volume] corrected for nucleated erythrocytes in Blood by Automated coun 3.8-11.6 [facility] Leukocytes [#/volume] in Blo od by Automated countOrdered By: José Miguel Mcnamara on 11-25-2023 WBC (Bld) [#/Vol] 9.9 10*3/uL Normal 3.8-11.6 [facility] Comment on above: Performed By: #### U HCG, ADDONUAPLUS #### [address] Lymphocytes Auto (Bld) [#/Vo l]Ordered By: José Miguel Mcnamara on 11-25-2023 Lymphocytes (Bld) [#/Vol] Lymphocytes [#/volume] in Blood by Automated count 1.00-4.8 [facility] Lymphocytes [#/volume] in Bl ood by Automated countOrdered By: José Miguel Mcnamara on 11-25-2023 Lymphocytes (Bld) [#/Vol] 2.6 10*3/uL Normal 1.00-4.8 [facility] Comment on above: Performed By: #### U HCG, ADDONUAPLUS #### [facility] [address] [place] [address] Lymphocytes/100 WBC Auto (Bl d)Ordered By: José Miguel Mcnamara on 11-25-2023 Lymphocytes/100 WBC (Bld) Lymphocytes/100 leukocytes in Blood by Automated count . [facility] Lymphocytes/100 leukocytes i n Blood by Automated countOrdered By: José Miguel Mcnamara on 11-25-2023 Lymphocytes/100 WBC (Bld) 26.5 % Normal . [facility] Comment on above: Performed By: #### U HCG, ADDONUAPLUS #### [address] MCH Auto (RBC) [Entitic mass ]Ordered By: José Miguel Mcnamara on 11-25-2023 MCH (RBC) [Entitic mass] MCH [Entitic mass] by Automated count 24.7-34.3 [facility] MCH [Entitic mass] by Automa lisa countOrdered By: José Miguel Mcnamara on 11-25-2023 MCH (RBC) [Entitic mass] 31.6 pg Normal 24.7-34.3 [facility] Comment on above: Performed By: #### U HCG, ADDONUAPLUS #### [address] MCHC Auto (RBC) [Mass/Vol]Or dered By: José Miguel Mcnamara on 11-25-2023 MCHC (RBC) [Mass/Vol] 33.6 g/dL 32.0-35.0 [facility] MCHC (RBC) [Mass/Vol] MCHC [Mass/volume] by Automated count 32.0-35.0 [facility] MCV Auto (RBC) [Entitic vol] Ordered By: José Miguel Mcnamara on 09-02-2024 MCV (RBC) [Entitic vol] MCV [Entitic volume] by Automated count 80-100 [facility] MCV [Entitic volume] by Auto mated countOrdered By: José Miguel Mcnamara on 11-25-2023 MCV (RBC) [Entitic vol] 93.9 fL Normal 80-100 [facility] Comment on above: Performed By: #### U HCG, ADDONUAPLUS #### [facility] [address] [place] [address] [place] Monocyte distribution width [Entitic volume] in Blood by AutomatedOrdered By: José Miguel Mcnamara on 11-25-2023 Monocyte distribution width Auto (Bld) [Entitic vol] 19.84 % 0.00-20.00 [facility] Monocyte distribution width Auto (Bld) [Entitic vol] Monocyte distribution width [Entitic volume] in Blood by Automated 0.00-20.00 [facility] Monocytes Auto (Bld) [#/Vol] Ordered By: José Miguel Mcnamara on 11-25-2023 Monocytes (Bld) [#/Vol] Automated blood monocyte count 0.0-0.8 [facility] Monocytes/100 WBC Auto (Bld) Ordered By: José Miguel Mcnamara on 11-25-2023 Monocytes/100 WBC (Bld) Automated monocyte % . [facility] Neutrophils Auto (Bld) [#/Vo l]Ordered By: José Miguel Mcnamara on 11-25-2023 Neutrophils (Bld) [#/Vol] Neutrophils [#/volume] in Blood by Automated count 1.8-7.7 [facility] Neutrophils [#/volume] in Bl ood by Automated countOrdered By: José Miguel Mcnamara on 11-25-2023 Neutrophils (Bld) [#/Vol] 6.3 10*3/uL Normal 1.8-7.7 [facility] Comment on above: Performed By: #### U HCG, ADDONUAPLUS #### [facility] [address] [place] [address] [place] Neutrophils/100 WBC Auto (Bl d)Ordered By: José Miguel Mcnamara on 11-25-2023 Neutrophils/100 WBC (Bld) Automated neutrophil % . [facility] No Panel InformationOrdered By: José Miguel Mcnamara on 11-25-2023 Estimated GFR (CKD-EPI) > 60.0 mL/Min [facility] Creatinine Clearance (Chem 94.23 [facility] Nucleated erythrocytes [Pres ence] in Blood by Automated countOrdered By: José Miguel Mcnamara on 11-25-2023 Nucleated RBC Auto Ql (Bld) 0.2 /100{WBC} 0-0.5 [facility] Nucleated RBC Auto Ql (Bld) Nucleated erythrocytes [Presence] in Blood by Automated count 0-0.5 [facility] Platelet mean volume Auto (B ld) [Entitic vol]Ordered By: José Miguel Mcnamara on 11-25-2023 Platelet mean volume (Bld) [Entitic vol] Platelet mean volume [Entitic volume] in Blood by Automated count 6.3-10.7 [facility] Platelet mean volume [Entiti c volume] in Blood by Automated countOrdered By: José Miguel Mcnamara on 11-25-2023 Platelet mean volume (Bld) [Entitic vol] 8.3 fL Normal 6.3-10.7 [facility] Comment on above: Performed By: #### U HCG, ADDONUAPLUS #### [facility] [address] Platelets Auto (Bld) [#/Vol] Ordered By: José Miguel Mcnamara on 11-25-2023 Platelets (Bld) [#/Vol] Platelets [#/volume] in Blood by Automated count 150-450 [facility] Platelets [#/volume] in Bloo d by Automated countOrdered By: José Miguel Mcnamara on 11-25-2023 Platelets (Bld) [#/Vol] 326 10*3/uL Normal 150-450 [facility] Comment on above: Performed By: #### U HCG, ADDONUAPLUS #### [facility] [address] Potassium [Moles/volume] in Serum or PlasmaOrdered By: José Miguel Mcnamara on 11-25-2023 Potassium [Moles/Vol] 4.0 mmol/L Normal 3.5-5.1 [facility] Comment on above: Performed By: #### U HCG, ADDONUAPLUS #### [facility] [address] Potassium [Moles/Vol] Potassium [Moles/volume] in Serum or Plasma 3.5-5.1 [facility] Protein [Mass/volume] in Ser um or PlasmaOrdered By: José Miguel Mcnamara on 11-25-2023 Protein [Mass/Vol] 6.6 g/dL Normal 6.4-8.9 [facility] Comment on above: Performed By: #### U HCG, ADDONUAPLUS #### [address] Protein [Mass/Vol] Protein [Mass/volume ] in Serum or Plasma 6.4-8.9 [facility] RBC Auto (Bld) [#/Vol]Ordere d By: José Miguel Mcnamara on 11-25-2023 RBC (Bld) [#/Vol] Erythrocytes [#/volu me] in Blood by Automated count 3.60-5.00 [facility] Serum globulin measurement b y calculation (mass/volume)Ordered By: José Miguel Mcnamara on 11-25-2023 Globulin (S) [Mass/Vol] 2.8 g/dL Normal [facility] Comment on above: Performed By: #### U HCG, ADDONUAPLUS #### [address] Serum or plasma albumin/glob ulin mass ratioOrdered By: José Miguel Mcnamara on 11-25-2023 Albumin/Globulin [Mass ratio] 1.4 {ratio} [facility] Comment on above: Performed By: #### U HCG, ADDONUAPLUS #### [address] Albumin/Globulin [Mass ratio] Serum or plasma albumin/globulin mass ratio [facility] Serum or plasma anion gap de terminationOrdered By: José Miguel Mcnamara on 11-25-2023 Anion gap [Moles/Vol] 12.0 mmol/L Normal 6.0-15.0 [facility] Comment on above: Performed By: #### U HCG, ADDONUAPLUS #### [address] Anion gap [Moles/Vol] Serum or plasma an ion gap determination 6.0-15.0 [facility] Serum or plasma non-glucuron idated bilirubin measurement (mass/volume)Ordered By: José Miguel Mcnamara on 11-25-2023 Bilirubin.indirect [Mass/Vol] 0.2 mg/dL [facility] Bilirubin.indirect [Mass/Vol] Serum or plasma non-glucuronidated bilirubin measurement (mass/volume) [facility] Sodium [Moles/volume] in Ser um or PlasmaOrdered By: José Miguel Mcnamara on 11-25-2023 Sodium [Moles/Vol] 140 mmol/L Normal 136-145 [facility] Comment on above: Performed By: #### U HCG, ADDONUAPLUS #### [facility] [address] Sodium [Moles/Vol] Sodium [Moles/volume ] in Serum or Plasma 136-145 [facility] Urea nitrogen [Mass/volume] in Serum or PlasmaOrdered By: José Miguel Mcnamara on 11-25-2023 Urea nitrogen [Mass/Vol] 17 mg/dL Normal 10-16 [facility] Comment on above: Performed By: #### U HCG, ADDONUAPLUS #### [facility] [address] [place] [address] [place] Urea nitrogen [Mass/Vol] Urea nitrogen [Mass/volume] in Serum or Plasma 10-16 [facility] WBC Auto (Bld) [#/Vol]Ordere d By: José Miguel Mcnamara on 11-25-2023 WBC (Bld) [#/Vol] Leukocytes [#/volume ] in Blood by Automated count 3.8-11.6 [facility] ED Clinical Summaryon 2023 ED Clinical Summary Normal [facility] ED Note-Physicianon 11-24-19 ED Note-Physician Normal [facility] Comment on above: Result Comment: Elec tronically Signed By: Landon Tidwell PA-C.br\Date and Time Signed: 11/24/23 15:48 EDT\.br\Electronically Co-Signed By: Balbina Bryant M.D..rufino\Date and Time Co-Signed: 09/01/24 17:50 EDT ED Patient Education Noteon 11-24-2023 ED Patient Education Note Normal [facility] ED Patient Summaryon 024 ED Patient Summary Normal [facility] XR Knee Complete 4+ Views Le fton 11-24-2023 XR Knee Complete 4+ Views Left Normal [facility] Creatinineon 11-17-2023 Creatinine [Mass/Vol] 0.70 mg/dL Normal 0.50-1.05 [facility] Comment on above: Performed By: #### 2 160-0 ####JOLENE Cantu ([id number])[facility] ([facility])[address] [place] [address] Creatinine [Mass/Vol]on 10-24 GFR/1.73 sq M.predicted MDRD (S/P/Bld) [Vol rate/Area] mL/min/{1.73_m2} Normal >[address] [facility] Comment on above: Result Comment: Calc ulations of estimated GFR are performed using the 2020 CKD-EPI Study Refit equation without the race variable for the IDMS-Traceable creatinine methods.https://jasn.asnjournals.org/content/early//A SN.9524493712 Performed By: #### 2 160-0 ####JOLENE Cantu ([id number])[facility] ([facility])[address] [place] [address] Vancomycinon 11-17-2023 Vancomycin [Mass/Vol] 7.5 ug/mL Normal 5.0-20.0 [facility] Comment on above: Order Comment: Vanco mycin [...] ages): 10.0-20.0 ug/mL Performed By: #### 2 0578-1 ####JOLENE Cantu ([id number])[facility] ([facility])[address] [place] [address] Bacteria identifiedon 2023 Bacteria identified Cx Nom (Unsp spec) Abnormal [facility] Comment on above: Performed By: #### 6 463-4 ####JOLENE Cantu ([id number])[facility] ([facility])[address] [place] [address] Urinalysis complete panel (U )on 11-14-2023 Appearance (U) Clear Normal Clear [facility] Comment on above: Performed By: #### 2 4356-8 ####JOLENE Cantu ([id number])[facility] ([facility])[address] [place] [address] Bilirubin (U) [Mass/Vol] Negative Normal NEGATIVE [facility] Comment on above: Performed By: #### 2 4356-8 ####JOLENE Cantu ([id number])[facility] ([facility])[address] [place] [address] Color (U) Yellow Normal Light-Yellow , Yellow, Dark-Yellow [facility] Comment on above: Performed By: #### 2 4356-8 ####JOLENE Cantu ([id number])[facility] ([facility])[address] [place] [address] Glucose Auto test strip (U) [Mass/Vol] Normal Normal Normal [facility] Comment on above: Performed By: #### 2 4356-8 ####JOLENE Cantu ([id number])[facility] ([facility])[address] [place] [address] Ketones (U) [Mass/Vol] TRACE Abnormal NEGATIVE [facility] Comment on above: Performed By: #### 2 4356-8 ####JOLENE Cantu ([id number])[facility] ([facility])[address] [place] [address] Leukocyte esterase Auto test strip Ql (U) 25 Robert/???L Abnormal NEGATIVE [facility] Comment on above: Performed By: #### 2 4356-8 ####JOLENE Cantu ([id number])[facility] ([facility])[address] [place] [address] Nitrite Auto test strip Ql (U) Negative Normal NEGATIVE [facility] Comment on above: Performed By: #### 2 4356-8 ####JOLENE Cantu ([id number])[facility] ([facility])[address] [place] [address] pH (U) 6.0 [pH] Normal 5.0, 5.5, 6.0, 6.5, 7.0, 7.5, 8.[address] [facility] Comment on above: Performed By: #### 2 4356-8 ####JOLENE aCntu ([id number])[facility] ([facility])[address] [place] [address] Protein (U) [Mass/Vol] 30 (1+) Abnormal NEGAT ALEXANDRE, 10 (TRACE), 20 (TRACE) [facility] Comment on above: Performed By: #### 2 4356-8 ####JOLENE Cantu ([id number])[facility] ([facility])[address] [place] [address] RBC (U) [#/Vol] Negative Normal NEGATIVE [facility] Comment on above: Performed By: #### 2 4356-8 ####JOLENE Cantu ([id number])[facility] ([facility])[address] [place] [address] Specific gravity (U) [Rel density] >1.050 Normal 1.005-1.[address] [facility] Comment on above: Result Comment: Spec [facility] gravity of >1.050 may be falsely elevated due to interferences with measurement. If clinically indicated, repeat testing with an alternative method is available by contacting the laboratory within 24 hours. Performed By: #### 2 4356-8 ####JOLENE Cantu ([id number])[facility] ([facility])[address] [place] [address] Urobilinogen (U) [Mass/Vol] 3 (1+) Abnormal Normal [facility] Comment on above: Result Comment: Some pigments and medications may cause a false positive urobilinogen. Performed By: #### 2 4356-8 ####JOLENE Cantu ([id number])[facility] ([facility])[address] [place] [address] Urinalysis microscopic panel Auto Ql (U)on 11-14-2023 Epithelial cells.squamous Auto (Urine sed) [#/Area] 10-25 (FEW) Normal Reference range not established. [facility] Comment on above: Performed By: #### 5 3315-8 ####JOLENE Cantu ([id number])[facility] ([facility])[address] [place] [address] Mucus Auto (Urine sed) [#/Area] 2+ /LPF Normal Reference range not established. [facility] Comment on above: Performed By: #### 5 3315-8 ####JOLENE Cantu ([id number])[facility] ([facility])[address] [place] [address] RBC Auto (Urine sed) [#/Area] 1-2 Normal NONE, 1-2, 3-[address] [facility] Comment on above: Performed By: #### 5 3315-8 ####JOLENE Cantu ([id number])[facility] ([facility])[address] [place] [address] WBC Auto (Urine sed) [#/Area] 1-5 Normal 1-5, NONE [facility] Comment on above: Performed By: #### 5 3315-8 ####JOLENE Cantu ([id number])[facility] ([facility])[address] [place] [address] Vancomycinon 11-14-2023 Vancomycin [Mass/Vol] 9.2 ug/mL Normal 5.0-20.0 Uni [facility] Comment on above: Order Comment: Vanco mycin [...] ages): 10.0-20.0 ug/mL Performed By: #### 2 0578-1 ####JOLENE Cantu ([id number])[facility] ([facility])[address] [place] [address] Blood type and Indirect anti body screen panel (Bld)on 11-13-2023 ABO group Nom (Bld) O Normal [facility] Comment on above: Performed By: #### 3 4532-2 ####JOLENE Cantu ([id number])[facility] ([facility])[address] [place], [place] [address] Blood group antibody screen Ql Negative [facility] Comment on above: Performed By: #### 3 4532-2 ####JOLENE Cantu ([id number])[facility] ([facility])[address] [place], [place] [address] D Ag Ql (Bld) Positive [facility] Comment on above: Performed By: #### 3 4532-2 ####JOLENE Cantu ([id number])[facility] ([facility])[address] [place], [place] [address] CT LUMBAR SPINE WO IV CONTRA STon 11-13-2023 CT LUMBAR SPINE WO IV CONTRAST Normal [facility] Choriogonadotropin.beta subu niton 11-13-2023 HCG.beta subunit Qn m[IU]/mL Normal <5 [facility] Comment on above: Order Comment: Total HCG measurement is performed using the Siemens Atellica immunoassay which detects intact HCG and free beta HCG subunit. This test is not indicated for use as a tumor marker. HCG testing is performed using a different test methodology at [facility] than other system hospitals. Direct result comparison should only be made within the same method. Performed By: #### 2 1198-7 ####JOLENE Cantu ([id number])[facility] ([facility])[address] [place] [address] ECG 12-LEADon 11-13-2023 ECG 12-LEAD Ventricular Rate 91 Atrial Rate 91 P-R Interval 130 QRS Duration 80 Q-T Interval 408 QTC Calculation(Bazett) 501 P [place] 84 R [place] 56 T [place] 70 QRS Count 15 Q Onset 219 P Onset 154 P Offset 205 T Offset 423 QTC Fredericia 469 Diagnosis Normal sinus rhythm Right atrial enlargement Low voltage QRS Prolonged QT Abnormal ECG No previous ECGs available See ED provider note for full interpretation and clinical correlation Confirmed by Marquis Calderón ([id number]) on 11/14/2023 12:52:38 AM Normal [facility] MR LUMBAR SPINE W AND WO IV CONTRASTon 11-13-2023 MR LUMBAR SPINE W AND WO IV CONTRAST Normal [facility] PT and aPTT panel Coag (PPP) on 11-13-2023 aPTT Coag (PPP) [Time] 29 s Normal 27-38 Un [facility] Comment on above: Order Comment: The A PTT is no longer used for monitoring Unfractionated Heparin Therapy. For monitoring Heparin Therapy, use the Heparin Assay. Performed By: #### 3 4529-8 ####JOLENE Cantu ([id number])[facility] ([facility])[address] [place] [address] INR Coag (PPP) [Relative time] 1.1 Normal 0.9-1.[address] [facility] Comment on above: Order Comment: The A PTT is no longer used for monitoring Unfractionated Heparin Therapy. For monitoring Heparin Therapy, use the Heparin Assay. Performed By: #### 3 4529-8 ####JOLENE Cantu ([id number])[facility] ([facility])[address] [place] [address] PT Coag (PPP) [Time] 12.3 s Normal 9.8-12.8 [facility] Comment on above: Order Comment: The A PTT is no longer used for monitoring Unfractionated Heparin Therapy. For monitoring Heparin Therapy, use the Heparin Assay. Performed By: #### 3 4529-8 ####JOLENE Cantu ([id number])[facility] ([facility])[address] [place] [address] XR CHEST 1 VIEWon 11-13-2023 XR CHEST 1 VIEW Normal [facility] Bacteria identifiedon 2023 Bacteria identified Cx Nom (Bld) Normal [facility] Comment on above: Performed By: #### 6 00-7 ####JOLENE Cantu ([id number])[facility] ([facility])[address] [place] [address] C reactive proteinon 024 CRP [Mass/Vol] 0.79 mg/dL Normal <1.[address] [facility] Comment on above: Performed By: #### 1 988-5 ####JOLENE Cantu ([id number])[facility] ([facility])[address] [place] [address] CBC W Auto Differential pane l (Bld)on 11-12-2023 Basophils (Bld) [#/Vol] 0.02 x10*3/uL Normal 0.00-0.[address] [facility] Comment on above: Performed By: #### 5 7021-8 ####JOLENE Cantu ([id number])[facility] ([facility])[address] [place] [address] Basophils/100 WBC (Bld) 0.2 % Normal 0.0-2.[address] [facility] Comment on above: Performed By: #### 5 7021-8 ####JOLENE Cantu ([id number])[facility] ([facility])[address] [place] [address] Eosinophils (Bld) [#/Vol] 0.08 x10*3/uL Normal 0.00-0.[address] [facility] Comment on above: Performed By: #### 5 7021-8 ####JOLENE Cantu ([id number])[facility] ([facility])[address] [place] [address] Eosinophils/100 WBC (Bld) 0.7 % Normal 0.0-6.[address] [facility] Comment on above: Performed By: #### 5 7021-8 ####JOLENE Cantu ([id number])[facility] ([facility])[address] [place] [address] Erythrocyte distribution width (RBC) [Ratio] 13.0 % Normal 11.5-14.[address] [facility] Comment on above: Performed By: #### 5 7021-8 ####JOLENE Cantu ([id number])[facility] ([facility])[address] [place] [address] Hematocrit (Bld) [Volume fraction] 42.2 % Normal 36.0-46.[address] [facility] Comment on above: Performed By: #### 5 7021-8 ####JOLENE Cantu ([id number])[facility] ([facility])[address] [place] [address] Hemoglobin (Bld) [Mass/Vol] 14.9 g/dL Normal 12.0-16.[address] [facility] Comment on above: Performed By: #### 5 7021-8 ####JOLENE Cantu ([id number])[facility] ([facility])[address] [place] [address] Immature granulocytes (Bld) [#/Vol] 0.04 x10*3/uL Normal 0.00-0.[address] [facility] Comment on above: Performed By: #### 5 7021-8 ####JOLENE RONQUILLO L ([id number])[facility] ([facility])[address] [place] [address] Immature granulocytes/100 WBC (Bld) 0.3 % Normal 0.0-0.[address] [facility] Comment on above: Result Comment: Aspen ture Granulocyte Count (IG) includes promyelocytes, myelocytes and metamyelocytes but does not include bands. Percent differential counts (%) should be interpreted in the context of the absolute cell counts (cells/UL). Performed By: #### 5 7021-8 ####JOLENE Cantu ([id number])[facility] ([facility])[address] [place] [address] Lymphocytes (Bld) [#/Vol] 2.56 x10*3/uL Normal 1.20-4.[address] [facility] Comment on above: Performed By: #### 5 7021-8 ####JOLENE Cantu ([id number])[facility] ([facility])[address] [place] [address] Lymphocytes/100 WBC (Bld) 22.2 % Normal 13.0-44.[address] [facility] Comment on above: Performed By: #### 5 7021-8 ####JOLENE Cantu ([id number])[facility] ([facility])[address] [place] [address]3 MCH (RBC) [Entitic mass] 31.0 pg Normal 26.0-34.[address] [facility] Comment on above: Performed By: #### 5 7021-8 ####JOLEEN Cantu ([id number])[facility] ([facility])[address] [place] [address]883 MCHC (RBC) [Mass/Vol] 35.3 g/dL Normal 32.0-36.0 [facility] Comment on above: Performed By: #### 5 7021-8 ####JOLENE Cantu ([id number])[facility] ([facility])[address] [place] [address] MCV (RBC) [Entitic vol] 88 fL Normal 80-[address] [facility] Comment on above: Performed By: #### 5 7021-8 ####JOLENE Cantu ([id number])[facility] ([facility])[address] [place] [address] Monocytes (Bld) [#/Vol] 0.70 x10*3/uL Normal 0.10-1.[address] [facility] Comment on above: Performed By: #### 5 7021-8 ####JOLENE Cantu ([id number])[facility] ([facility])[address] [place] [address] Monocytes/100 WBC (Bld) 6.1 % Normal 2.0-10.[address] [facility] Comment on above: Performed By: #### 5 7021-8 ####JOLENE Cantu ([id number])[facility] ([facility])[address] [place] [address] Neutrophils (Bld) [#/Vol] 8.12 x10*3/uL High 1.20-7.[address] [facility] Comment on above: Result Comment: Perc ent differential counts (%) should be interpreted in the context of the absolute cell counts (cells/uL). Performed By: #### 5 7021-8 ####JOLENE Cantu ([id number])[facility] ([facility])[address] [place] [address] Neutrophils/100 WBC (Bld) 70.5 % Normal 40.0-80.[address] [facility] Comment on above: Performed By: #### 5 7021-8 ####JOLENE Cantu ([id number])[facility] ([facility])[address] [place] [address] Nucleated RBC/100 WBC (Bld) [Ratio] 0.0 /100 WBCs Normal 0.0-0.[address] [facility] Comment on above: Performed By: #### 5 7021-8 ####JOLENE Cantu ([id number])[facility] ([facility])[address] [place] [address] Platelets (Bld) [#/Vol] 366 x10*3/uL Normal 150-[address] [facility] Comment on above: Performed By: #### 5 7021-8 ####JOLENE Cantu ([id number])[facility] ([facility])[address] [place] [address] RBC (Bld) [#/Vol] 4.80 x10*6/uL Normal 4.00-5.20 [facility] Comment on above: Performed By: #### 5 7021-8 ####JOLENE Cantu ([id number])[facility] ([facility])[address] [place] [address] WBC (Bld) [#/Vol] 11.5 x10*3/uL High 4.4-11.3 [facility] Comment on above: Performed By: #### 5 7021-8 ####JOLENE Cantu ([id number])[facility] ([facility])[address] [place] [address] Comprehensive metabolic 2000 panelon 11-12-2023 Albumin BCP dye [Mass/Vol] 4.2 g/dL Normal 3.4-5.[address] [facility] Comment on above: Performed By: #### 2 4323-8 ####JOLENE Cantu ([id number])[facility] ([facility])[address] [place] [address] ALP [Catalytic activity/Vol] 86 U/L Normal 33-[address] [facility] Comment on above: Performed By: #### 2 4323-8 ####JOLENE Cantu ([id number])[facility] ([facility])[address] [place] [address] ALT With P-5'-P [Catalytic activity/Vol] 19 U/L Normal 7-[address] [facility] Comment on above: Result Comment: Katia ents treated with Sulfasalazine may generate falsely decreased results for ALT. Performed By: #### 2 4323-8 ####JOLENE Cantu ([id number])[facility] ([facility])[address] [place] [address] Anion gap [Moles/Vol] 15 mmol/L Normal 10-20 [facility] Comment on above: Performed By: #### 2 4323-8 ####JOLENE Cantu (61301)[facility] [facility] ([facility])[address] [place] [address] AST With P-5'-P [Catalytic activity/Vol] 22 U/L Normal 9-[address] [facility] Comment on above: Performed By: #### 2 4323-8 ####JOLENE RONQUILLO L ([id number])[facility] ([facility])[address] [place] [address] Bilirubin [Mass/Vol] 0.5 mg/dL Normal 0.0-1.2 [facility] Comment on above: Performed By: #### 2 4323-8 ####JOLENE RONQUILLO L ([id number])[facility] ([facility])[address] [place] [address] Calcium [Mass/Vol] 9.1 mg/dL Normal 8.6-10.6 [facility] Comment on above: Performed By: #### 2 4323-8 ####JOLENE RONQUILLO L ([id number])[facility] ([facility])[address] [place] [address] Chloride [Moles/Vol] 103 mmol/L Normal 98-107 [facility] Comment on above: Performed By: #### 2 4323-8 ####JOLENE RONQUILLO L ([id number])[facility] ([facility])[address] [place] [address] CO2 [Moles/Vol] 24 mmol/L Normal 21-32 [facility] Comment on above: Performed By: #### 2 4323-8 ####JOLENE CASTROER L ([id number])[facility] ([facility])[address] [place] [address] Creatinine [Mass/Vol] 0.84 mg/dL Normal 0.50-1.05 [facility] Comment on above: Performed By: #### 2 4323-8 ####JOLENE CASTROER L ([id number])[facility] ([facility])[address] [place] [address] Glomerular filtration rate/1.73 sq M.predicted 87 mL/min/1.73m*2 Normal >[address] [facility] Comment on above: Result Comment: Calc ulations of estimated GFR are performed using the 2020 CKD-EPI Study Refit equation without the race variable for the IDMS-Traceable creatinine methods.https://jasn.asnjournals.org/content/22/A .9526638662 Performed By: #### 2 4323-8 ####JOLENE Cantu ([id number])[facility] ([facility])[address] [place] [address] Glucose [Mass/Vol] 94 mg/dL Normal 74-99 [facility] Comment on above: Performed By: #### 2 4323-8 ####JOLENE Cantu ([id number])[facility] ([facility])[address] [place] [address] Potassium [Moles/Vol] 3.6 mmol/L Normal 3.5-5.3 [facility] Comment on above: Performed By: #### 2 4323-8 ####JOLENE Cantu ([id number])[facility] ([facility])[address] [place] [address] Protein [Mass/Vol] 8.1 g/dL Normal 6.4-8.2 [facility] Comment on above: Performed By: #### 2 4323-8 ####JOLENE Cantu ([id number])[facility] ([facility])[address] [place] [address] Sodium [Moles/Vol] 138 mmol/L Normal 136-145 [facility] Comment on above: Performed By: #### 2 4323-8 ####JOLENE Cantu ([id number])[facility] ([facility])[address] [place] [address] Urea nitrogen [Mass/Vol] 12 mg/dL Normal 6-[address] [facility] Comment on above: Performed By: #### 2 4323-8 ####JOLENE Cantu ([id number])[facility] ([facility])[address] [place] [address] ESR Westergren method (Bld) [Velocity]on 11-12-2023 ESR (Bld) [Velocity] 27 mm/h High 0-20 [facility] Comment on above: Performed By: #### 4 537-7 ####JOLENE Cantu ([id number])[facility] ([facility])[address] [place] [address] Automated basophil %Ordered By: Dalton Ceja on 11-10-2023 Basophils/100 WBC (Bld) 0.2 % Normal . [facility] Comment on above: Performed By: #### C DEYVI PARKINSON, CBC #### [address] Automated basophil countOrde red By: Dalton Ceja on 11-10-2023 Basophils (Bld) [#/Vol] 0.0 10*3/uL Normal 0.0-0.2 [facility] Comment on above: Performed By: #### C DEYVI PARKINSON, CBC #### [address] Automated blood monocyte cou ntOrdered By: Dalton Ceja on 11-10-2023 Monocytes (Bld) [#/Vol] 0.7 10*3/uL Normal 0.0-0.8 [facility] Comment on above: Performed By: #### C DEYVI PARKINSON, CBC #### [address] Automated eosinophil %Ordere d By: Dalton Ceja on 11-10-2023 Eosinophils/100 WBC (Bld) 1.2 % Normal . [facility] Comment on above: Performed By: #### C DEYVI PARKINSON, CBC #### [address] Automated eosinophil countOr dered By: Dalton Ceja on 11-10-2023 Eosinophils (Bld) [#/Vol] 0.1 10*3/uL Normal 0.0-0.45 [facility] Comment on above: Performed By: #### C DEYVI PARKINSON, CBC #### [address] Automated monocyte %Ordered By: Dalton Ceja on 11-10-2023 Monocytes/100 WBC (Bld) 6.7 % Normal . [facility] Comment on above: Performed By: #### C DEYVI PARKINSON, CBC #### [facility] [address] Automated neutrophil %Ordere d By: Dalton Ceja on 11-10-2023 Neutrophils/100 WBC (Bld) 68.2 % Normal . [facility] Comment on above: Performed By: #### C DEYVI PARKINSON, CBC #### [facility] [address] [place] [address] Bacterial blood cultureOrder ed By: Dalton Ceja on 11-10-2023 Bacteria identified Cx Nom (Bld) NO GROWTH 5 DAYS [facility] Bacteria identified Cx Nom (Bld) Bacterial blood culture [facility] Bacteria identified Cx Nom (Bld) NO GROWTH 5 DAYS [facility] Basophils Auto (Bld) [#/Vol] Ordered By: Dalton Ceja on 11-10-2023 Basophils (Bld) [#/Vol] Automated basophil count 0.0-0.2 [facility] Basophils/100 WBC Auto (Bld) Ordered By: Dalton Ceja on 11-10-2023 Basophils/100 WBC (Bld) Automated basophil % . [facility] Blood Cultureon 11-10-2023 Bacteria identified Cx Nom (Bld) NO GROWTH 5 DAYS PERFORMED BY: [place] [address] PATHOLOGIST TUBE 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 JASON WILSON M.D. Normal [facility] Comment on above: Performed By: #### C DEYVI PARKINSON, CBC #### [facility] [address] [place] [address] C reactive protein [Mass/vol ume] in Serum or PlasmaOrdered By: Dalton Ceja on 11-10-2023 CRP [Mass/Vol] 0.9 mg/dL High 0.0-0.5 [facility] CRP [Mass/Vol] C reactive protein [Mass/volume] in Serum or Plasma High 0.0-0.5 [facility] C-Reactive Proteinon 024 C-Reactive Protein 0.9 mg/dL High 0.0-0.5 [facility] Comment on above: Result Comment: PERF ORMED BY: [place] [address] PATHOLOGIST TUBE 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 JASON WILSON M.D. Performed By: #### C DEYVI PARKINSON, CBC #### [address] Complete Blood Count Auto Di ffon 11-10-2023 Mean Corpuscular HGB Conc 33.3 g/dL Normal 32.0-35.0 [facility] Comment on above: Performed By: #### C DEYVI PARKINSON, CBC #### [address] Monocytes/100 WBC (Bld) 19.08 % Normal 0.00-20.00 [facility] Comment on above: Performed By: #### C DEYVI PARKINSON, CBC #### [address] NRBC% 0.0 /100{WBC} Normal 0-0.5 [facility] Comment on above: Performed By: #### C DEYVI PARKINSON, CBC #### [address] Eosinophils Auto (Bld) [#/Vo l]Ordered By: Dalton Ceja on 11-10-2023 Eosinophils (Bld) [#/Vol] Automated eosinophil count 0.0-0.45 [facility] Eosinophils/100 WBC Auto (Bl d)Ordered By: Dalton Ceja on 11-10-2023 Eosinophils/100 WBC (Bld) Automated eosinophil % . [facility] Erythrocyte Sedimentation Ra karen 11-10-2023 ESR (Bld) [Velocity] 33 mm/h High 0-19 [facility] Comment on above: Result Comment: PERF ORMED BY: [place] [address] PATHOLOGIST TUBE 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 JASON WILSON M.D. Performed By: #### C DEYVI PARKINSON, CBC #### [address] Erythrocyte distribution wid th Auto (RBC) [Ratio]Ordered By: Dalton Ceja on 11-10-2023 Erythrocyte distribution width (RBC) [Ratio] Erythrocyte distribution width [Ratio] by Automated count 11.9-15.3 [facility] Erythrocyte distribution wid th [Ratio] by Automated countOrdered By: Dalton Ceja on 11-10-2023 Erythrocyte distribution width (RBC) [Ratio] 13.6 % Normal 11.9-15.3 [facility] Comment on above: Performed By: #### C DEYVI PARKINSON, CBC #### [facility] [address] Erythrocyte sedimentation ra te by Photometric methodOrdered By: Dalton Ceja on 11-10-2023 ESR Photometric method (Bld) [Velocity] 33 mm/hr High 019 [facility] ESR Photometric method (Bld) [Velocity] Erythrocyte sedimentation rate by Photometric method [facility] [address] Erythrocytes [#/volume] in B lood by Automated countOrdered By: Dalton Cjea on 11-10-2023 RBC (Bld) [#/Vol] 4.15 10*6/uL Normal 3.60-5.00 [facility] Comment on above: Performed By: #### C DEYVI PARKINSON, CBC #### [facility] [address] Hematocrit Auto (Bld) [Volum e fraction]Ordered By: Dalton Ceja on 11-10-2023 Hematocrit (Bld) [Volume fraction] Hematocrit [Volume Fraction] of Blood by Automated count 34.0-46.4 [facility] Hematocrit [Volume Fraction] of Blood by Automated countOrdered By: Dalton Ceja on 11-10-2023 Hematocrit (Bld) [Volume fraction] 39.0 % Normal 34.0-46.4 [facility] Comment on above: Performed By: #### C DEYVI PARKINSON, CBC #### [facility] [address] Hemoglobin [Mass/volume] in BloodOrdered By: Dalton Ceja on 11-10-2023 Hemoglobin (Bld) [Mass/Vol] 13.0 g/dL Normal 11.8-15.4 [facility] Comment on above: Performed By: #### C DEYVI PARKINSON, CBC #### [facility] [address] Hemoglobin (Bld) [Mass/Vol] Hemoglobin [Mass/volume] in Blood 11.8-15.4 [facility] Lactate [Moles/volume] in Se rum or PlasmaOrdered By: Dalton Ceja on 11-10-2023 Lactate [Moles/Vol] 0.7 mmol/L Normal 0.5-2.2 [facility] Comment on above: Result Comment: PERF ORMED BY: [place] [address] PATHOLOGIST TUBE 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 JASON WILSON M.D. Performed By: #### U YARI OAKLEY #### [facility] [address] Lactate [Moles/Vol] Lactate [Moles/volum e] in Serum or Plasma 0.5-2.2 [facility] Leukocytes [#/volume] correc lisa for nucleated erythrocytes in Blood by Automated counOrdered By: Dalton Ceja on 11-10-2023 WBC corrected for nucl RBC Auto (Bld) [#/Vol] 10.1 10*3/uL 3.8-11.6 [facility] WBC corrected for nucl RBC Auto (Bld) [#/Vol] Leukocytes [#/volume] corrected for nucleated erythrocytes in Blood by Automated coun 3.8-11.6 [facility] Leukocytes [#/volume] in Blo od by Automated countOrdered By: Dalton Ceja on 11-10-2023 WBC (Bld) [#/Vol] 10.1 10*3/uL Normal 3.8-11.6 [facility] Comment on above: Performed By: #### C DEYVI PARKINSON, CBC #### [facility] [address] Lymphocytes Auto (Bld) [#/Vo l]Ordered By: Dalton Ceja on 11-10-2023 Lymphocytes (Bld) [#/Vol] Lymphocytes [#/volume] in Blood by Automated count 1.00-4.8 [facility] Lymphocytes [#/volume] in Bl ood by Automated countOrdered By: Dalton Ceja on 11-10-2023 Lymphocytes (Bld) [#/Vol] 2.4 10*3/uL Normal 1.00-4.8 [facility] Comment on above: Performed By: #### C DEYVI PARKINSON, CBC #### [address] Lymphocytes/100 WBC Auto (Bl d)Ordered By: Dalton Ceja on 11-10-2023 Lymphocytes/100 WBC (Bld) Lymphocytes/100 leukocytes in Blood by Automated count . [facility] Lymphocytes/100 leukocytes i n Blood by Automated countOrdered By: Dalton Ceja on 11-10-2023 Lymphocytes/100 WBC (Bld) 23.7 % Normal . [facility] Comment on above: Performed By: #### C DEYVI PARKINSON, CBC #### [address] MCH Auto (RBC) [Entitic mass ]Ordered By: Dalton Ceja on 11-10-2023 MCH (RBC) [Entitic mass] MCH [Entitic mass] by Automated count 24.7-34.3 [facility] MCH [Entitic mass] by Automa lisa countOrdered By: Dalton Ceja on 11-10-2023 MCH (RBC) [Entitic mass] 31.3 pg Normal 24.7-34.3 [facility] Comment on above: Performed By: #### C DEYVI PARKINSON, CBC #### [facility] [address] [place] [address] MCHC Auto (RBC) [Mass/Vol]Or dered By: Dalton Ceja on 11-10-2023 MCHC (RBC) [Mass/Vol] 33.3 g/dL 32.0-35.0 [facility] MCHC (RBC) [Mass/Vol] MCHC [Mass/volume] by Automated count 32.0-35.0 [facility] MCV Auto (RBC) [Entitic vol] Ordered By: Dalton Ceja on 11-10-2023 MCV (RBC) [Entitic vol] MCV [Entitic volume] by Automated count 80-100 [facility] MCV [Entitic volume] by Auto mated countOrdered By: Dalton Ceja on 11-10-2023 MCV (RBC) [Entitic vol] 94.0 fL Normal 80-100 [facility] Comment on above: Performed By: #### C DEYVI PARKINSON, CBC #### [facility] [address] Monocyte distribution width [Entitic volume] in Blood by AutomatedOrdered By: Dalton Ceja on 11-10-2023 Monocyte distribution width Auto (Bld) [Entitic vol] 19.08 % 0.00-20.00 [facility] Monocyte distribution width Auto (Bld) [Entitic vol] Monocyte distribution width [Entitic volume] in Blood by Automated 0.00-20.00 [facility] Monocytes Auto (Bld) [#/Vol] Ordered By: Dalton Ceja on 11-10-2023 Monocytes (Bld) [#/Vol] Automated blood monocyte count 0.0-0.8 [facility] Monocytes/100 WBC Auto (Bld) Ordered By: Dalton Ceja on 11-10-2023 Monocytes/100 WBC (Bld) Automated monocyte % . [facility] Neutrophils Auto (Bld) [#/Vo l]Ordered By: Dalton Ceja on 11-10-2023 Neutrophils (Bld) [#/Vol] Neutrophils [#/volume] in Blood by Automated count 1.8-7.7 [facility] Neutrophils [#/volume] in Bl ood by Automated countOrdered By: Dalton Ceja on 11-10-2023 Neutrophils (Bld) [#/Vol] 6.9 10*3/uL Normal 1.8-7.7 [facility] Comment on above: Performed By: #### C DEYVI PARKINSON, CBC #### [facility] [address] [place] [address] [place] Neutrophils/100 WBC Auto (Bl d)Ordered By: Dalton Ceja on 11-10-2023 Neutrophils/100 WBC (Bld) Automated neutrophil % . [facility] Nucleated erythrocytes [Pres ence] in Blood by Automated countOrdered By: Dalton Ceja on 11-10-2023 Nucleated RBC Auto Ql (Bld) 0.0 /100{WBC} 0-0.5 [facility] Nucleated RBC Auto Ql (Bld) Nucleated erythrocytes [Presence] in Blood by Automated count 0-0.5 [facility] Platelet mean volume Auto (B ld) [Entitic vol]Ordered By: Dalton Ceja on 11-10-2023 Platelet mean volume (Bld) [Entitic vol] Platelet mean volume [Entitic volume] in Blood by Automated count 6.3-10.7 [facility] Platelet mean volume [Entiti c volume] in Blood by Automated countOrdered By: Dalton Ceja on 11-10-2023 Platelet mean volume (Bld) [Entitic vol] 8.9 fL Normal 6.3-10.7 [facility] Comment on above: Performed By: #### C DEYVI PARKINSON, CBC #### [facility] [address] Platelets Auto (Bld) [#/Vol] Ordered By: Dalton Ceja on 11-10-2023 Platelets (Bld) [#/Vol] Platelets [#/volume] in Blood by Automated count 150-450 [facility] Platelets [#/volume] in Bloo d by Automated countOrdered By: Dalton Ceja on 11-10-2023 Platelets (Bld) [#/Vol] 300 10*3/uL Normal 150-450 [facility] Comment on above: Performed By: #### C DEYVI PARKINSON, CBC #### [facility] [address] RBC Auto (Bld) [#/Vol]Ordere d By: Dalton Ceja on 11-10-2023 RBC (Bld) [#/Vol] Erythrocytes [#/volu me] in Blood by Automated count 3.60-5.00 [facility] WBC Auto (Bld) [#/Vol]Ordere d By: Dalton Ceja on 11-10-2023 WBC (Bld) [#/Vol] Leukocytes [#/volume ] in Blood by Automated count 3.8-11.6 [facility] Basic metabolic 2000 panelon 11-09-2023 Anion gap [Moles/Vol] 12 mmol/L Normal 10-20 [facility] Comment on above: Performed By: #### 2 4321-2 #### GIOVANNI BURNETT ([id number]) [facility] ([facility]) [address] [place] [address] Calcium [Mass/Vol] 8.5 mg/dL Low 8.6-10.3 [facility] Comment on above: Performed By: #### 2 4321-2 #### GIOVANNI BURNETT ([id number]) [facility] ([facility]) [address] [place] [address]150 Chloride [Moles/Vol] 105 mmol/L Normal 98-107 [facility] Comment on above: Performed By: #### 2 4321-2 #### GIOVANNI BURNETT ([id number]) [facility] ([facility]) [address] [place] [address] 29739 CO2 [Moles/Vol] 24 mmol/L Normal 21-32 [facility] Comment on above: Performed By: #### 2 4321-2 #### GIOVANNI BURNETT ([id number]) [facility] ([facility]) [address] [place] [address] 66140 Creatinine [Mass/Vol] 0.77 mg/dL Normal 0.50-1.05 [facility] Comment on above: Performed By: #### 2 4321-2 #### GIOVANNI BURNETT ([id number]) [facility] ([facility]) [address] [place] [address]167 GFR/1.73 sq M.predicted MDRD (S/P/Bld) [Vol rate/Area] mL/min/{1.73_m2} Normal >60 [facility] Comment on above: Result Comment: Calc ulations of estimated GFR are performed using the 2020 CKD-EPI Study Refit equation without the race variable for the IDMS-Traceable creatinine methods. https://jasn.asnjournals.org/content//ASN.69330 49863 Performed By: #### 2 4321-2 #### GIOVANNI BURNETT ([id number]) [facility] ([facility]) [address] [place] [address] 90842 Glucose [Mass/Vol] 104 mg/dL High 74-99 [facility] Comment on above: Performed By: #### 2 4321-2 #### GIOVANNI BURNETT ([id number]) [facility] ([facility]) [address] [place] [address] 61880 Potassium [Moles/Vol] 3.7 mmol/L Normal 3.5-5.3 [facility] Comment on above: Performed By: #### 2 4321-2 #### GIOVANNI BURNETT ([id number]) [facility] ([facility]) [address] [place] [address] 79264 Sodium [Moles/Vol] 137 mmol/L Normal 136-145 [facility] Comment on above: Performed By: #### 2 4321-2 #### GIOVANNI BURNETT ([id number]) [facility] ([facility]) [address] [place] [address] 84317 Urea nitrogen [Mass/Vol] 10 mg/dL Normal 6-23 [facility] Comment on above: Performed By: #### 2 4321-2 #### GIOVANNI BURNETT ([id number]) [facility] ([facility]) [address] [place] [address] 43503 C reactive proteinon 024 CRP [Mass/Vol] 1.06 mg/dL High <1.00 [facility] Comment on above: Performed By: #### 1 988-5 #### IGOVANNI BURNETT ([id number]) [facility] ([facility]) [address] [place] [address] 03944 CBC W Auto Differential pane l (Bld)on 11-09-2023 Basophils (Bld) [#/Vol] 0.01 x10*3/uL Normal 0.00-0.10 [facility] Comment on above: Performed By: #### 5 7021-8 #### GIOVANNI BURNETT ([id number]) [facility] ([facility]) [address] [place] [address] 55200 Basophils/100 WBC (Bld) 0.1 % Normal 0.0-2.0 [facility] Comment on above: Performed By: #### 5 7021-8 #### GIOVANNI BURNETT ([id number]) [facility] ([facility]) [address] [place] [address] 55707 Eosinophils (Bld) [#/Vol] 0.10 x10*3/uL Normal 0.00-0.70 [facility] Comment on above: Performed By: #### 5 7021-8 #### GIOVANNI BURNETT ([id number]) [facility] ([facility]) [address] [place] [address] 81397 Eosinophils/100 WBC (Bld) 1.0 % Normal 0.0-6.0 [facility] Comment on above: Performed By: #### 7021-8 #### GIOVANNI BURNETT ([id number]) [facility] ([facility]) [address] [place] [address] 65996 Erythrocyte distribution width (RBC) [Ratio] 12.8 % Normal 11.5-14.5 [facility] Comment on above: Performed By: #### 7021-8 #### GIOVANNI BURNETT ([id number]) [facility] ([facility]) [address] [place] [address] 88117 Hematocrit (Bld) [Volume fraction] 41.3 % Normal 36.0-46.0 [facility] Comment on above: Performed By: #### 5 7021-8 #### GIOVANNI BURNETT ([id number]) [facility] ([facility]) [address] [place] [address] 86738 Hemoglobin (Bld) [Mass/Vol] 13.5 g/dL Normal 12.0-16.0 [facility] Comment on above: Performed By: #### 5 7021-8 #### GIOVANNI BURNETT ([id number]) [facility] ([facility]) [address] [place] [address] 95687 Immature granulocytes (Bld) [#/Vol] 0.03 x10*3/uL Normal 0.00-0.70 [facility] Comment on above: Performed By: #### 7021-8 #### GIOVANNI BURNETT ([id number]) [facility] ([facility]) [address] [place] [address] 38559 Immature granulocytes/100 WBC (Bld) 0.3 % Normal 0.0-0.9 [facility] Comment on above: Result Comment: Aspen ture Granulocyte Count (IG) includes promyelocytes, myelocytes and metamyelocytes but does not include bands. Percent differential counts (%) should be interpreted in the context of the absolute cell counts (cells/UL). Performed By: #### 5 7021-8 #### GIOVANNI BURNETT ([id number]) [facility] ([facility]) [address] [place] [address] 90771 Lymphocytes (Bld) [#/Vol] 2.13 x10*3/uL Normal 1.20-4.80 [facility] Comment on above: Performed By: #### 5 7021-8 #### GIOVANNI BURNETT ([id number]) [facility] ([facility]) [address] [place] [address] 30729 Lymphocytes/100 WBC (Bld) 21.4 % Normal 13.0-44.0 [facility] Comment on above: Performed By: #### 5 7021-8 #### GIOVANNI BURNETT ([id number]) [facility] ([facility]) [address] [place] [address] 58688 MCH (RBC) [Entitic mass] 31.0 pg Normal 26.0-34.0 [facility] Comment on above: Performed By: #### 5 7021-8 #### GIOVANNI BURNETT ([id number]) [facility] ([facility]) [address] [place] [address] 90310 MCHC (RBC) [Mass/Vol] 32.7 g/dL Normal 32.0-36.0 [facility] Comment on above: Performed By: #### 5 7021-8 #### GIOVANNI BURNETT ([id number]) [facility] ([facility]) [address] [place] [address] 66775 MCV (RBC) [Entitic vol] 95 fL Normal 80-100 [facility] Comment on above: Performed By: #### 5 7021-8 #### GIOVANNI BURNETT ([id number]) [facility] ([facility]) [address] [place] [address] 26099 Monocytes (Bld) [#/Vol] 0.55 x10*3/uL Normal 0.10-1.00 [facility] Comment on above: Performed By: #### 5 7021-8 #### GIOVANNI BURNETT ([id number]) [facility] ([facility]) [address] [place] [address] 37302 Monocytes/100 WBC (Bld) 5.5 % Normal 2.0-10.0 [facility] Comment on above: Performed By: #### 5 7021-8 #### GIOVANNI BURNETT ([id number]) [facility] ([facility]) [address] [place] [address] 42903 Neutrophils (Bld) [#/Vol] 7.14 x10*3/uL Normal 1.20-7.70 [facility] Comment on above: Result Comment: Perc ent differential counts (%) should be interpreted in the context of the absolute cell counts (cells/uL). Performed By: #### 5 7021-8 #### GIOVANNI BURNETT ([id number]) [facility] ([facility]) [address] [place] [address] 38510 Neutrophils/100 WBC (Bld) 71.7 % Normal 40.0-80.0 [facility] Comment on above: Performed By: #### 5 7021-8 #### GIOVANNI BURNETT ([id number]) [facility] ([facility]) [address] [place] [address] 52163 Nucleated RBC/100 WBC (Bld) [Ratio] 0.0 /100 WBCs Normal 0.0-0.0 [facility] Comment on above: Performed By: #### 5 7021-8 #### GIOVANNI BURNETT ([id number]) [facility] ([facility]) [address] [place] [address] 64084 Platelets (Bld) [#/Vol] 308 x10*3/uL Normal 150-450 [facility] Comment on above: Performed By: #### 5 7021-8 #### GIOVANNI WATERSJJ ([id number]) [facility] ([facility]) [address] [place] [address] RBC (Bld) [#/Vol] 4.36 x10*6/uL Normal 4.00-5.20 [facility] Comment on above: Performed By: #### 5 7021-8 #### GIOVANNI WATERSJJ ([id number]) [facility] ([facility]) [address] [place] [address] WBC (Bld) [#/Vol] 10.0 x10*3/uL Normal 4.4-11.3 [facility] Comment on above: Performed By: #### 5 7021-8 #### GIOVANNI WATERSJJ ([id number]) [facility] ([facility]) [address] [place] [address] CT LUMBAR SPINE W IV CONTRAS Ton 11-09-2023 CT LUMBAR SPINE W IV CONTRAST STUDY: CT Lumbar Spine with IV Contrast; 11/09/2023 at 2:52 PM. INDICATION: Pain and swelling. COMPARISON: MR lumbar 10/31/2023, 10/31/2022. ACCESSION NUMBER(S): [id number] ORDERING CLINICIAN: JAROCHO TRONCOSO TECHNIQUE: CT of [...] is recommended. Signed by Doc Vela MD [facility] ESR Westergren method (Bld) [Velocity]on 11-09-2023 ESR (Bld) [Velocity] 34 mm/h High 0-20 [facility] Comment on above: Performed By: #### 4 537-7 #### DAVILA LEX ([id number]) [facility] ([facility]) [address] [place] [address] MR THORACIC SPINE WO IV CONT [facility] 11-08-2023 MR THORACIC SPINE WO IV CONTRAST Interpreted By: Peter Smith, STUDY: MR THORACIC SPINE WO IV CONTRAST; 11/08/2023 8:25 am INDICATION: Signs/Symptoms:presurgi bryce planning for reimplant of thoracic spinal cord stimulator leads. COMPARISON: None. ACCESSION NUMBER(S): [id number] ORDERING CLINICIAN: CHIRAG REYNOSO TECHNIQUE: Sagittal T1, T2, STIR and [...] Peter Smith 11/08/2023 9:53 AM Dictation workstation: [id number] [facility] ED Note-Physicianon 11-06-19 ED Note-Physician Normal [facility] Comment on above: Result Comment: Elec [...] Status: Final result Abnormal: No Resulting Lab: [facility] [address] [place] [id number] CULTURE No Staphylococcus aureus isolated Normal [facility] Comment on above: Performed By: #### 5 2969-3 #### JOLENE Cantu ([id number]) [facility] ([facility]) [address] [place] [address] ED Clinical Summaryon 2023 ED Clinical Summary Normal [facility] ED Patient Education Noteon 11-05-2023 ED Patient Education Note Normal [facility] ED Patient Summaryon 024 ED Patient Summary Normal [facility] ED Clinical Summaryon 2023 ED Clinical Summary (Inserted Image. Darlene ble to display) [place] [id number] ED Clinical Summary Person Information Name: Jerad Tracy Alesha/[facility] Age: 48 Years : 1975 Sex: Female PCP: Marital Status: Phone: Race: White Ethnicity: Not or Language: Cambodian Visit Reason: Back pain; back pain Acuity: 4 Enc Type: Emergency Med Service: Emergency Medicine Arrival: 11/02/2023 14:44:17 Discharge: 11/02/2023 17:11:00 LOS: 000 02:27 Checkin: 11/02/2023 14:44:17 Checkout: 11/02/2023 17:11:00 Dispo Type: Home or Self Care Address: [address] [place] [address] [phone] Provider Notes: Diagnosis: 1:Chronic low back pain [...] Home, Self Patient Education Information: CHRONIC PAIN [facility] Poison Help line: . [facility] Hotline: [place] Tobacco Quit Line: [place], [place]) [address]: [phone] [place], [place]) [address]: [phone] [facility] [address] [place], [place]: [phone] Normal [facility] ED Note-Physicianon 11-02-19 ED Note-Physician Chief Complaint [...] of motion. Pulses and sensation intact] Skin: [Margaret, warm, dry, no injury, no rashes] Neuro: [...] _ ? NEXUS C-spine Criteria: _ ? Chester Ankle Rule: _ ? Chester Knee Rule: _ ? Wells Criteria for [...] and s (more content not included)... Normal [facility] C reactive proteinon 024 CRP [Mass/Vol] 0.43 mg/dL Normal <1.[address] [facility] Comment on above: Performed By: #### 1 988-5 ####JOLENE Cantu ([id number])[facility] ([facility])[address] [place] [address] CBC panel Auto (Bld)on 10-31 Erythrocyte distribution width (RBC) [Ratio] 13.0 % Normal 11.5-14.[address] [facility] Comment on above: Performed By: #### 5 8410-2 ####JOLENE Cantu ([id number])[facility] ([facility])[address] [place] [address] 89218 Hematocrit (Bld) [Volume fraction] 39.1 % Normal 36.0-46.[address] [facility] Comment on above: Performed By: #### 5 8410-2 ####JOLENE Cantu ([id number])[facility] ([facility])[address] [place] [address] 58317 Hemoglobin (Bld) [Mass/Vol] 12.8 g/dL Normal 12.0-16.[address] [facility] Comment on above: Performed By: #### 5 8410-2 ####JOLENE Cantu ([id number])[facility] ([facility])[address] [place] [address] 16884 MCH (RBC) [Entitic mass] 31.4 pg Normal 26.0-34.[address] [facility] Comment on above: Performed By: #### 5 8410-2 ####JOLENE Cantu ([id number])[facility] ([facility])[address] [place] [address] 05198 MCHC (RBC) [Mass/Vol] 32.7 g/dL Normal 32.0-36.0 [facility] Comment on above: Performed By: #### 5 8410-2 ####JOLENE Cantu ([id number])[facility] ([facility])[address] [place] [address] 76015 MCV (RBC) [Entitic vol] 96 fL Normal 80-[address] [facility] Comment on above: Performed By: #### 5 8410-2 ####JOLENE Cantu ([id number])[facility] ([facility])[address] [place] [address] 13960 Nucleated RBC/100 WBC (Bld) [Ratio] 0.0 /100 WBCs Normal 0.0-0.[address] [facility] Comment on above: Performed By: #### 5 8410-2 ####JOLENE RONQUILLO L ([id number])[facility] ([facility])[address] [place] [address] Platelets (Bld) [#/Vol] 304 x10*3/uL Normal 150-[address] [facility] Comment on above: Performed By: #### 5 8410-2 ####JOLENE RONQUILLO L ([id number])[facility] ([facility])[address] [place] [address] RBC (Bld) [#/Vol] 4.08 x10*6/uL Normal 4.00-5.20 [facility] Comment on above: Performed By: #### 5 8410-2 ####JOLENE RONQUILLO L ([id number])[facility] ([facility])[address] [place] [address] 06036 WBC (Bld) [#/Vol] 6.2 x10*3/uL Normal 4.4-11.3 [facility] Comment on above: Performed By: #### 5 8410-2 ####JOLENE RONQUILLO L ([id number])[facility] ([facility])[address] [place] [address] 21796 ESR Westergren method (Bld) [Velocity]on 11-01-2023 ESR (Bld) [Velocity] 44 mm/h High 0-20 [facility] Comment on above: Performed By: #### 4 537-7 ####JOLENE RONQUILLO L (65689)[facility] ([facility])[address] [place] [address] 09011 MRI LUMBAR SPINE W WO CONTRA STon [...] Johnson Shin MD 11/01/23 Final result Normal [facility] Renal function 2000 panelon 11-01-2023 Albumin BCP dye [Mass/Vol] 3.7 g/dL Normal 3.4-5.[address] [facility] Comment on above: Performed By: #### 2 4362-6 ####JOLENE Cantu ([id number])[facility] ([facility])[address] [place] [address] Anion gap [Moles/Vol] 12 mmol/L Normal 10-20 [facility] Comment on above: Performed By: #### 2 4362-6 ####JOLENE Cantu (78279)[facility] ([facility])[address] [place] [address] Calcium [Mass/Vol] 8.4 mg/dL Low 8.6-10.6 [facility] Comment on above: Performed By: #### 2 4362-6 ####JOLENE RONQUILLO L ([id number])[facility] ([facility])[address] [place] [address] Chloride [Moles/Vol] 105 mmol/L Normal 98-107 [facility] Comment on above: Performed By: #### 2 4362-6 ####JOLENE Cantu (28730)[facility] ([facility])[address] [place] [address] CO2 [Moles/Vol] 25 mmol/L Normal 21-32 [facility] Comment on above: Performed By: #### 2 4362-6 ####JOLENE Cantu (54057)[facility] ([facility])[address] [place] [address] Creatinine [Mass/Vol] 0.73 mg/dL Normal 0.50-1.05 [facility] Comment on above: Performed By: #### 2 4362-6 ####JOLENE Cantu ([id number])[facility] ([facility])[address] [place] [address] GFR/1.73 sq M.predicted MDRD (S/P/Bld) [Vol rate/Area] mL/min/{1.73_m2} Normal >[address] [facility] Comment on above: Result Comment: Calc ulations of estimated GFR are performed using the 2020 CKD-EPI Study Refit equation without the race variable for the IDMS-Traceable creatinine methods.https://jasn.asnjournals.org/content//A SN.6527460606 Performed By: #### 2 4362-6 ####JOLENE Cantu (75654)[facility] ([facility])[address] [place] [address] Glucose [Mass/Vol] 84 mg/dL Normal 74-99 [facility] Comment on above: Performed By: #### 2 4362-6 ####JOLENE Cantu ([id number])[facility] ([facility])[address] [place] [address] Phosphate [Mass/Vol] 3.1 mg/dL Normal 2.5-4.9 [facility] Comment on above: Result Comment: The performance characteristics of phosphorus testing in heparinized plasma have been validated by the individual laboratory site where testing is performed. Testing on heparinized plasma is not approved by the FDA; however, such approval is not necessary. Performed By: #### 2 4362-6 ####JOLENE Cantu (11694)[facility] ([facility])[address] [place] [address] Potassium [Moles/Vol] 3.9 mmol/L Normal 3.5-5.3 [facility] Comment on above: Performed By: #### 2 4362-6 ####JOLENE Cantu (14992)[facility] ([facility])[address] [place] [address] Sodium [Moles/Vol] 138 mmol/L Normal 136-145 [facility] Comment on above: Performed By: #### 2 4362-6 ####JOLENE Cantu (32109)[facility] ([facility])[address] [place] [address] Urea nitrogen [Mass/Vol] 14 mg/dL Normal 6-[address] [facility] Comment on above: Performed By: #### 2 4362-6 ####JOLENE Cantu ([id number])[facility] ([facility])[address] [place] [address] Bacteria identifiedon 2023 Bacteria identified Cx Nom (Bld) [facility] Comment on above: Performed By: #### 6 00-7 ####JOLENE Cantu ([id number])[facility] ([facility])[address] [facility] [place] [address] Blood type and Indirect anti body screen panel (Bld)on 10-31-2023 ABO group Nom (Bld) [facility] Comment on above: Performed By: #### 3 4532-2 ####JOLENE Cantu ([id number])[facility] ([facility])[address] [facility] [place] [address] Blood group antibody screen Ql Negative [facility] Comment on above: Performed By: #### 3 4532-2 ####JOLENE Cantu ([id number])[facility] ([facility])[address]27 [facility] [place] [address] D Ag Ql (Bld) Positive [facility] Comment on above: Performed By: #### 3 4532-2 ####JOLENE Cantu ([id number])[facility] ([facility])[address] [facility] [place] [address] CBC W Auto Differential pane l (Bld)on 10-31-2023 Basophils (Bld) [#/Vol] 0.01 x10*3/uL Normal 0.00-0.[address] [facility] Comment on above: Performed By: #### 5 7021-8 ####JOLENE Cantu (44095)[facility] ([facility])[address] [place] [address] Basophils/100 WBC (Bld) 0.2 % Normal 0.0-2.[address] [facility] Comment on above: Performed By: #### 5 7021-8 ####JOLENE Cantu ([id number])[facility] ([facility])[address] [place] [address] Eosinophils (Bld) [#/Vol] 0.20 x10*3/uL Normal 0.00-0.[address] [facility] Comment on above: Performed By: #### 5 7021-8 ####JOLENE Cantu (40966)[facility] ([facility])[address]999 [facility] [place] [address] Eosinophils/100 WBC (Bld) 3.3 % Normal 0.0-6.[address] [facility] Comment on above: Performed By: #### 5 7021-8 ####JOLENE Cantu (62207)[facility] ([facility])[address] [place] [address] Erythrocyte distribution width (RBC) [Ratio] 13.1 % Normal 11.5-14.[address] [facility] Comment on above: Performed By: #### 5 7021-8 ####JOLENE Cantu (46566)[facility] ([facility])[address] [place] [address] Hematocrit (Bld) [Volume fraction] 37.2 % Normal 36.0-46.[address] [facility] Comment on above: Performed By: #### 5 7021-8 ####JOLENE Cantu (79553)[facility] ([facility])[address] [place] [address] Hemoglobin (Bld) [Mass/Vol] 12.6 g/dL Normal 12.0-16.[address] [facility] Comment on above: Performed By: #### 5 7021-8 ####JOLENE Cantu ([id number])[facility] ([facility])[address] [place] [address] Immature granulocytes (Bld) [#/Vol] 0.01 x10*3/uL Normal 0.00-0.[address] [facility] Comment on above: Performed By: #### 5 7021-8 ####JOLENE Cantu (02395)[facility] ([facility])[address]993 [place] [address] Immature granulocytes/100 WBC (Bld) 0.2 % Normal 0.0-0.[address] [facility] Comment on above: Result Comment: Aspen ture Granulocyte Count (IG) includes promyelocytes, myelocytes and metamyelocytes but does not include bands. Percent differential counts (%) should be interpreted in the context of the absolute cell counts (cells/UL). Performed By: #### 5 7021-8 ####JOLENE Cantu (78126)[facility] ([facility])[address] [place] [address] Lymphocytes (Bld) [#/Vol] 1.51 x10*3/uL Normal 1.20-4.[address] [facility] Comment on above: Performed By: #### 5 7021-8 ####JOLENE Cantu (18121)[facility] ([facility])[address]53 [place] [address] Lymphocytes/100 WBC (Bld) 24.6 % Normal 13.0-44.[address] [facility] Comment on above: Performed By: #### 5 7021-8 ####JOLENE Cantu (19394)[facility] ([facility])[address] [place] [address] 36287 MCH (RBC) [Entitic mass] 30.3 pg Normal 26.0-34.[address] [facility] Comment on above: Performed By: #### 5 7021-8 ####JOLENE Cantu (93686)[facility] ([facility])[address] [place] [address] MCHC (RBC) [Mass/Vol] 33.9 g/dL Normal 32.0-36.0 [facility] Comment on above: Performed By: #### 5 7021-8 ####JOLENE Cantu (87119)[facility] ([facility])[address]16 [place] [address] MCV (RBC) [Entitic vol] 89 fL Normal 80-[address] [facility] Comment on above: Performed By: #### 5 7021-8 ####JOLENE Cantu (56502)[facility] ([facility])[address] [place] [address] Monocytes (Bld) [#/Vol] 0.45 x10*3/uL Normal 0.10-1.[address] [facility] Comment on above: Performed By: #### 5 7021-8 ####JOLENE Cantu (84032)[facility] ([facility])[address] [place] [address] Monocytes/100 WBC (Bld) 7.3 % Normal 2.0-10.[address] [facility] Comment on above: Performed By: #### 5 7021-8 ####JOLENE Cantu (59968)[facility] ([facility])[address]683 [place] [address] Neutrophils (Bld) [#/Vol] 3.95 x10*3/uL Normal 1.20-7.[address] [facility] Comment on above: Result Comment: Perc ent differential counts (%) should be interpreted in the context of the absolute cell counts (cells/uL). Performed By: #### 5 7021-8 ####JOLENE Cantu (18408)[facility] ([facility])[address]21 [place] [address] Neutrophils/100 WBC (Bld) 64.4 % Normal 40.0-80.[address] [facility] Comment on above: Performed By: #### 5 7021-8 ####JOLENE Cantu (80173)[facility] ([facility])[address]01 [place] [address] Nucleated RBC/100 WBC (Bld) [Ratio] 0.0 /100 WBCs Normal 0.0-0.[address] [facility] Comment on above: Performed By: #### 5 7021-8 ####JOLENE Cantu (01863)[facility] ([facility])[address]85 [place] [address] Platelets (Bld) [#/Vol] 304 x10*3/uL Normal 150-[address] [facility] Comment on above: Performed By: #### 5 7021-8 ####JOLENE Cantu (99996)[facility] ([facility])[address]109 [place] [address] RBC (Bld) [#/Vol] 4.16 x10*6/uL Normal 4.00-5.20 [facility] Comment on above: Performed By: #### 5 7021-8 ####JOLENE Cantu (09981)[facility] ([facility])[address]17 [place] [address] WBC (Bld) [#/Vol] 6.1 x10*3/uL Normal 4.4-11.3 [facility] Comment on above: Performed By: #### 5 7021-8 ####JOLENE Cantu (56621)[facility] ([facility])[address] [place] [address] Choriogonadotropin.beta subu niton 10-31-2023 HCG.beta subunit Qn m[IU]/mL Normal <5 [facility] Comment on above: Order Comment: Total HCG measurement is performed using the Siemens [facility]ll[facility] immunoassay which detects intact HCG and free beta HCG subunit. This test is not indicated for use as a tumor marker. HCG testing is performed using a different test methodology at [facility] than other [facility]. Direct result comparison should only be made within the same method. Performed By: #### 2 1198-7 ####JOLENE Cantu (25083)[facility] ([facility])[address]367 [place] [address] Comprehensive metabolic 2000 panelon 10-31-2023 Albumin BCP dye [Mass/Vol] 3.6 g/dL Normal 3.4-5.[address] [facility] Comment on above: Performed By: #### 2 4323-8 ####JOLENE Cantu (65990)[facility] ([facility])[address]17 [place] [address] ALP [Catalytic activity/Vol] 75 U/L Normal 33-[address] [facility] Comment on above: Performed By: #### 2 4323-8 ####JOLENE Cantu (94132)[facility] ([facility])[address]802 [place] [address] ALT With P-5'-P [Catalytic activity/Vol] 28 U/L Normal 7-[address] [facility] Comment on above: Result Comment: Katia ents treated with Sulfasalazine may generate falsely decreased results for ALT. Performed By: #### 2 4323-8 ####JOLENE Cantu (16149)[facility] ([facility])[address] [facility] [place] [address] Anion gap [Moles/Vol] 13 mmol/L Normal 10-20 [facility] Comment on above: Performed By: #### 2 4323-8 ####JOLENE Cantu (25527)[facility] ([facility])[address]60 [facility] [place] [address] AST With P-5'-P [Catalytic activity/Vol] 34 U/L Normal 9-[address] [facility] Comment on above: Performed By: #### 2 4323-8 ####JOLENE Cantu (04764)[facility] ([facility])[address]642 [place] [address] Bilirubin [Mass/Vol] 0.5 mg/dL Normal 0.0-1.2 [facility] Comment on above: Performed By: #### 2 4323-8 ####JOLENE Cantu (18204)[facility] ([facility])[address] [place] [address] Calcium [Mass/Vol] 8.2 mg/dL Low 8.6-10.6 [facility] Comment on above: Performed By: #### 2 4323-8 ####JOLENE Cantu (17222)[facility] ([facility])[address] [place] [address] Chloride [Moles/Vol] 106 mmol/L Normal 98-107 [facility] Comment on above: Performed By: #### 2 4323-8 ####JOLENE Cantu ([id number])[facility] ([facility])[address]34 [place] [address] CO2 [Moles/Vol] 24 mmol/L Normal 21-32 [facility] Comment on above: Performed By: #### 2 4323-8 ####JOLENE Cantu (48014)[facility] ([facility])[address] [place] [address] Creatinine [Mass/Vol] 0.74 mg/dL Normal 0.50-1.05 [facility] Comment on above: Performed By: #### 2 4323-8 ####JOLENE Cantu (98953)[facility] ([facility])[address]43 [place] [address] GFR/1.73 sq M.predicted MDRD (S/P/Bld) [Vol rate/Area] mL/min/{1.73_m2} Normal >[address] [facility] Comment on above: Result Comment: Calc ulations of estimated GFR are performed using the 2020 CKD-EPI Study Refit equation without the race variable for the IDMS-Traceable creatinine methods.https://jasn.asnjournals.org/content//A .7208512469 Performed By: #### 2 4323-8 ####JOLENE Cantu (66662)[facility] ([facility])[address]503 [place] [address] Glucose [Mass/Vol] 90 mg/dL Normal 74-99 [facility] Comment on above: Performed By: #### 2 4323-8 ####JOLENE Cantu (13800)[facility] ([facility])[address]672 [place] [address] Potassium [Moles/Vol] 4.0 mmol/L Normal 3.5-5.3 [facility] Comment on above: Performed By: #### 2 4323-8 ####JOLENE Cantu (22172)[facility] ([facility])[address]68 [place] [address] Protein [Mass/Vol] 6.6 g/dL Normal 6.4-8.2 [facility] Comment on above: Performed By: #### 2 4323-8 ####JOLENE Cantu ([id number])[facility] ([facility])[address] [place] [address] Sodium [Moles/Vol] 139 mmol/L Normal 136-145 [facility] Comment on above: Performed By: #### 2 4323-8 ####JOLENE Cantu ([id number])[facility] ([facility])[address] [place] [address] Urea nitrogen [Mass/Vol] 13 mg/dL Normal 6-[address] [facility] Comment on above: Performed By: #### 2 4323-8 ####JOLENE Cantu ([id number])[facility] ([facility])[address] [place] [address] MR LUMBAR SPINE W AND WO IV CONTRASTon 10-31-2023 MR LUMBAR SPINE W AND WO IV CONTRAST Normal [facility] Urinalysis complete W Reflex Culture panel (U)on 10-31-2023 Appearance (U) Turbid Normal Clear [facility] Comment on above: Performed By: #### 5 8077-9 ####JOLENE Cantu ([id number])[facility] ([facility])[address] [place] [address] Bilirubin (U) [Mass/Vol] Negative Normal NEGATIVE [facility] Comment on above: Performed By: #### 5 8077-9 ####JOLENE Cantu ([id number])[facility] ([facility])[address] [place] [address] Color (U) Yellow Normal Light-Yellow , Yellow, Dark-Yellow [facility] Comment on above: Performed By: #### 5 8077-9 ####JOLENE Cantu ([id number])[facility] ([facility])[address] [place] [address] Epithelial cells.squamous Auto (Urine sed) [#/Area] 26-50 (1+) Normal Reference range not established. [facility] Comment on above: Performed By: #### 5 8077-9 ####JOLENE RONQUILLO L ([id number])[facility] ([facility])[address] [place] [address] Glucose Auto test strip (U) [Mass/Vol] Normal Normal Normal [facility] Comment on above: Performed By: #### 5 8077-9 ####JOLENE RONQUILLO L ([id number])[facility] ([facility])[address] [place] [address] Ketones (U) [Mass/Vol] Negative [facility]: Performed By: #### 5 8077-9 ####JOLENE RNOQUILLO L ([id number])[facility] ([facility])[address] [facility] [place] [address] Leukocyte esterase Auto test strip Ql (U) Negative Normal NEGATIVE [facility] Comment on above: Performed By: #### 5 8077-9 ####JOLENE CASTROER L ([id number])[facility] ([facility])[address] [place] [address] Mucus Auto (Urine sed) [#/Area] 3+ /LPF Normal Reference range not established. [facility] Comment on above: Performed By: #### 5 8077-9 ####JOLENE CASTROER L ([id number])[facility] ([facility])[address] [place] [address] Nitrite Auto test strip Ql (U) Negative Normal NEGATIVE [facility] Comment on above: Performed By: #### 5 9977-9 ####JOLENE RONQUILLO L ([id number])[facility] ([facility])[address] [facility] [place] [address] pH (U) 6.0 [pH] Normal 5.0, 5.5, 6.0, 6.5, 7.0, 7.5, 8.[address] [facility] Comment on above: Performed By: #### 5 8077-9 ####JOLENE WELSHMOTZER L ([id number])[facility] ([facility])[address] [place] [address] Protein (U) [Mass/Vol] 30 (1+) Abnormal NEGAT ALEXANDRE, 10 (TRACE), 20 (TRACE) [facility] Comment on above: Performed By: #### 5 8077-9 ####JOLENE WELSHMOREGINALDO L ([id number])[facility] ([facility])[address] [place] [address] RBC (U) [#/Vol] Negative Normal NEGATIVE [facility] Comment on above: Performed By: #### 5 8077-9 ####JOLENE CASTROER L ([id number])[facility] ([facility])[address] [place] [address] RBC Auto (Urine sed) [#/Area] 1-2 Normal NONE, 1-2, 3-[address] [facility] Comment on above: Performed By: #### 5 8077-9 ####JOLENE CASTROER L ([id number])[facility] ([facility])[id number] [place] [address] Specific gravity (U) [Rel density] 1.033 Normal 1.005-1.[address] [facility] Comment on above: Performed By: #### 5 8077-9 ####JOLENE NELSONTZER L ([id number])[facility] ([facility])[id number] [place] [address] Urobilinogen (U) [Mass/Vol] Normal Normal Normal [facility] Comment on above: Performed By: #### 5 8077-9 ####JOLENE CASTROER L ([id number])[facility] ([facility])[address] [place] [address] WBC Auto (Urine sed) [#/Area] 1-5 Normal 1-5, NONE [facility] Comment on above: Performed By: #### 5 8077-9 ####JOLENE CASTROER L ([id number])[facility] ([facility])[id number] [place] [address] XR ABDOMEN (KUB) (SINGLE AP VIEW)on 10-31-2023 XR ABDOMEN (KUB) (SINGLE AP VIEW) EXAMINATION: ONE SUPINE XRAY VIEW(S) OF THE ABDOMEN 10/30/2023 7:26 pm COMPARISON: CT abdomen January 30, 2014 HISTORY: ORDERING SYSTEM PROVIDED HISTORY: rule out FB in lumbar spine from spinal stimulator prior to [employer] PROVIDED HISTORY: rule out FB in lumbar [...] Liyah Miranda MD 10/31/23 Final result Normal [facility] XR ABDOMEN 1 VIEWon 10-31-19 XR ABDOMEN 1 VIEW Normal [facility] XR Abdomen Single viewon Cholecystectomy clip s as well as tubal ligation clips in the pelvis. No other foreign body. [facility] RIS CONSOLIDATED EXAMINATION: ONE SUPINE XRAY VIEW(S) OF THE ABDOMEN 10/30/2023 7:26 pm COMPARISON: CT abdomen January 30, 2014 HISTORY: ORDERING SYSTEM PROVIDED HISTORY: rule out FB in lumbar spine from spinal stimulator prior to [employer]GER [employer] PROVIDED HISTORY: rule out FB in lumbar [...] gas pattern. No evidence of free air. [facility] RIS CONSOLIDATED Liyah Miranda MD - 10/31/2023 EXAMINATION: ONE SUPINE XRAY VIEW(S) OF THE ABDOMEN 10/30/2023 7:26 pm COMPARISON: CT abdomen January 30, 2014 HISTORY: ORDERING SYSTEM PROVIDED HISTORY: rule out FB in lumbar spine from spinal stimulator prior to MA[employer]GER [employer] PROVIDED HISTORY: rule out FB in lumbar [...] in the pelvis. No other foreign body. [facility] XR Abdomen Single viewOrdere d By: Liyah Miranda on 10-31-2023 [facility] Work Phone: XR CHEST 1 VIEWon 10-31-2023 XR CHEST 1 VIEW Normal [facility] XR PELVIS 1-2 VIEWSon 2023 XR PELVIS 1-2 VIEWS Normal [facility] Basic Metabolic Panelon 08 Anion gap [Moles/Vol] 10 mmol/L 9 - 17 mmol/L [facility] Calcium [Mass/Vol] 8.7 mg/dL 8.6 - 10. 4 mg/dL [facility] Chloride [Moles/Vol] 103 mmol/L 98 - 10 7 mmol/L [facility] CO2 [Moles/Vol] 25 mmol/L 20 - 31 mmol/L [facility] Creatinine [Mass/Vol] 0.7 mg/dL 0.5 - 0.9 mg/dL [facility] Est, [place] Rate - [facility] Comment on above: These results are not [...] [Mass/Vol] 96 mg/dL 70 - 99 mg/dL [facility] Potassium [Moles/Vol] 4.1 mmol/L 3.7 - 5.3 mmol/L [facility] Sodium [Moles/Vol] 138 mmol/L 135 - 144 mmol/L [facility] Urea nitrogen [Mass/Vol] 13 mg/dL 6 - 20 mg/dL [facility] Basic Metabolic Profon 10-29 Anion gap [Moles/Vol] 10 mmol/L Normal 9-17 [facility] Comment on above: Performed By: #### B MP, CDP, CRP #### [facility] [address] [place] [address] Hydrochloric Acid Operator: Keke Romero DO #### SED #### [facility] [address] [place] [address] Hydrochloric Acid Operator: Jose Enrique Oneal MD Calcium [Mass/Vol] 8.7 mg/dL Normal 8.6-10.4 [facility] Comment on above: Performed By: #### B MP, CDP, CRP #### [facility] [address] [place] [address] Hydrochloric Acid Operator: Keke Romero DO #### SED #### [address] [address] Hydrochloric Acid Operator: Jose Enrique Oneal MD Chloride [Moles/Vol] 103 mmol/L Normal 98-107 [facility] Comment on above: Performed By: #### B MP, CDP, CRP #### [facility] [address] [place] [address] Hydrochloric Acid Operator: Keke Romero DO #### SED #### [address] [address] Hydrochloric Acid Operator: Jose Enrique Oneal MD CO2 [Moles/Vol] 25 mmol/L Normal 20-31 [facility] Comment on above: Performed By: #### B MP, CDP, CRP #### [facility] [address] [place] [address] Hydrochloric Acid Operator: Keke Romero DO #### SED #### [address] [address] Hydrochloric Acid Operator: Jose Enrique Oneal MD Creatinine [Mass/Vol] 0.7 mg/dL Normal 0.5-0.9 [facility] Comment on above: Performed By: #### B MP, CDP, CRP #### [facility] [address] [place] [address] Hydrochloric Acid Operator: Keke Romero DO #### SED #### [address] [address] Hydrochloric Acid Operator: Jose Enrique Oneal MD GFR/1.73 sq M.predicted among non-blacks MDRD (S/P/Bld) [Vol rate/Area] mL/min/{1.73_m2} Normal >60 [facility] Comment on above: Result Comment: These results [...] renal tubular secretion. Performed By: #### B AKIL PARKINSON, CRP #### [facility] [address] [place] [address] Hydrochloric Acid Operator: Keke Romero DO #### SED #### [address] [address] Hydrochloric Acid Operator: Jose Enrique Oneal MD Glucose [Mass/Vol] 96 mg/dL Normal 70-99 [facility] Comment on above: Performed By: #### B AKIL PARKINSON, CRP #### [facility] [address] [place] [address] Hydrochloric Acid Operator: Keke Romero DO #### SED #### [address] [address] Hydrochloric Acid Operator: Jose Enrique Oneal MD Potassium [Moles/Vol] 4.1 mmol/L Normal 3.7-5.3 [facility] Comment on above: Performed By: #### B IGGY, AKIL, CRP #### [facility] [address] [place] [address] Hydrochloric Acid Operator: Keke Romero DO #### SED #### [address] [address] Hydrochloric Acid Operator: Jose Enrique Oneal MD Sodium [Moles/Vol] 138 mmol/L Normal 135-144 [facility] Comment on above: Performed By: #### B MP, CDP, CRP #### [facility] [address] [place] [address] Hydrochloric Acid Operator: Keke Romero DO #### SED #### [address] [address] Hydrochloric Acid Operator: Jose Enrique Oneal MD Urea nitrogen [Mass/Vol] 13 mg/dL Normal 6-20 [facility] Comment on above: Performed By: #### B MP, CDP, CRP #### [facility] [address] [place] [address] Hydrochloric Acid Operator: Keke Romero DO #### SED #### [address] [address] Hydrochloric Acid Operator: Jose Enrique Oneal MD C-Reactive Proteinon 024 CRP High sensitivity method [Mass/Vol] 3.6 mg/L 0.0 - 5.0 mg/L [facility] CRP [Mass/Vol] 3.6 mg/L Normal 0.0-5.0 [facility] Comment on above: Performed By: #### B MP, CDP, CRP #### [facility] [address] [place] [address] Hydrochloric Acid Operator: Keke Romero DO #### SED #### [address] [address] Hydrochloric Acid Operator: Jose Enrique Oneal MD CBC with Auto Differentialon 10-30-2023 Basophils (Bld) [#/Vol] 0.00 10*3/uL [facility] Basophils/100 WBC (Bld) 0 % 0 - 2 % [facility] Eosinophils (Bld) [#/Vol] 0.10 10*3/uL [facility] Eosinophils/100 WBC (Bld) 2 % 0 - 4 % [facility] Erythrocyte distribution width (RBC) [Ratio] 14.2 % 11.5 - 14.9 % [facility] Hematocrit (Bld) [Volume fraction] 42.0 % 36 - 46 % [facility] Hemoglobin (Bld) [Mass/Vol] 13.8 g/dL 12.0 - 16.0 g/dL [facility] Lymphocytes/100 WBC (Bld) 25 % 24 - 44 % [facility] Lymphocytes/100 WBC (Bld) 2.50 % [facility] MCH (RBC) [Entitic mass] 31.3 pg 26 - 34 pg [facility] MCHC (RBC) [Mass/Vol] 33.0 g/dL 31 - 37 g/dL [facility] MCV (RBC) [Entitic vol] 95.0 fL 80 - 100 fL [facility] Monocytes/100 WBC (Bld) 7 % 1 - 7 % [facility] Monocytes/100 WBC (Bld) 0.70 % [facility] Neutrophils/100 WBC (Bld) 66 % 36 - 66 % [facility] Platelet mean volume (Bld) [Entitic vol] 8.1 fL 6.0 - 12.0 fL [facility] Platelets (Bld) [#/Vol] 347 10*3/uL [facility] RBC (Bld) [#/Vol] 4.42 10*6/uL 4.0 - 5.2 m/uL [facility] Segmented neutrophils/100 WBC (Bld) 6.60 % [facility] WBC other (Bld) [#/Vol] 9.9 [facility] CBC with Diffon 10-30-2023 Abs. Basophil 0.00 k/uL Normal 0.0-0.2 [facility] Comment on above: Performed By: #### B MP, CDP, CRP #### [facility] [address] [place] [address] Hydrochloric Acid Operator: Keke Romero DO #### SED #### [address] [address] Hydrochloric Acid Operator: Jose Enrique Oneal MD Abs.Neutrophil (Seg) 6.60 k/uL Normal 1.3-9.1 [facility] Comment on above: Performed By: #### B MP, CDP, CRP #### [facility] [address] [place] [address] Hydrochloric Acid Operator: Keke Romero DO #### SED #### [address] [address] Hydrochloric Acid Operator: Jose Enrique Oneal MD Basophils/100 WBC (Bld) 0 % Normal 0-2 [facility] Comment on above: Performed By: #### B MP, CDP, CRP #### [facility] [address] [place] [address] Hydrochloric Acid Operator: Keke Romero DO #### SED #### [address] [address] Hydrochloric Acid Operator: Jose Enrique Oneal MD Eosinophils (Bld) [#/Vol] 0.10 10*3/uL Normal 0.0-0.4 [facility] Comment on above: Performed By: #### B MP, CDP, CRP #### [facility] [place] [address] Hydrochloric Acid Operator: Keke Romero DO #### SED #### [address] [address] Hydrochloric Acid Operator: Jose Enrique Oneal MD Eosinophils/100 WBC (Bld) 2 % Normal 0-4 [facility] Comment on above: Performed By: #### B MP, CDP, CRP #### [facility] [address] [place] [address] Hydrochloric Acid Operator: Keke Romero DO #### SED #### [address] [place] [address] Hydrochloric Acid Operator: Jose Enrique Oneal MD Erythrocyte distribution width (RBC) [Ratio] 14.2 % Normal 11.5-14.9 [facility] Comment on above: Performed By: #### B MP, CDP, CRP #### [facility] [address] [place] [address] Hydrochloric Acid Operator: Keke Romero DO #### SED #### [address] [address] Hydrochloric Acid Operator: Jose Enrique Oneal MD Hematocrit (Bld) [Volume fraction] 42.0 % Normal 36-46 [facility] Comment on above: Performed By: #### B MP, CDP, CRP #### [facility] [address] [place] [address] Hydrochloric Acid Operator: Keke Romero DO #### SED #### [address] [address] Hydrochloric Acid Operator: Jose Enrique Oneal MD Hemoglobin (Bld) [Mass/Vol] 13.8 g/dL Normal 12.0-16.0 [facility] Comment on above: Performed By: #### B MP, CDP, CRP #### [facility] [address] [place] [address] Hydrochloric Acid Operator: Keke Romero DO #### SED #### [address] [address] Hydrochloric Acid Operator: Jose Enrique Oneal MD Lymphocytes (Bld) [#/Vol] 2.50 10*3/uL Normal 1.0-4.8 [facility] Comment on above: Performed By: #### B MP, CDP, CRP #### [facility] [address] [place] [address] Hydrochloric Acid Operator: Keke Romero DO #### SED #### [address] [address] Hydrochloric Acid Operator: Jose Enrique Oneal MD Lymphocytes/100 WBC (Bld) 25 % Normal 24-44 [facility] Comment on above: Performed By: #### B MP, CDP, CRP #### [facility] [address] [place] [address] Hydrochloric Acid Operator: Keke Romero DO #### SED #### [address] [address] Hydrochloric Acid Operator: Jose Enrique Oneal MD MCH (RBC) [Entitic mass] 31.3 pg Normal 26-34 [facility] Comment on above: Performed By: #### B MP, CDP, CRP #### [facility] [address] [place] [address] Hydrochloric Acid Operator: Keke Romero DO #### SED #### [address] [address] Hydrochloric Acid Operator: Jose Enrique Oneal MD MCHC (RBC) [Mass/Vol] 33.0 g/dL Normal 31-37 [facility] Comment on above: Performed By: #### B MP, CDP, CRP #### [facility] [address] [place] [address] Hydrochloric Acid Operator: Keke Romero DO #### SED #### [address] [address] Hydrochloric Acid Operator: Jose Enrique Oneal MD MCV (RBC) [Entitic vol] 95.0 fL Normal 80-100 [facility] Comment on above: Performed By: #### B MP, CDP, CRP #### [facility] [address] [place] [address] Hydrochloric Acid Operator: Keke Romero DO #### SED #### [address] [place] [address] Hydrochloric Acid Operator: Jose Enrique Oneal MD Monocytes (Bld) [#/Vol] 0.70 10*3/uL Normal 0.1-1.3 [facility] Comment on above: Performed By: #### B MP, CDP, CRP #### [facility] [address] [place] [address] Hydrochloric Acid Operator: Keke Romero DO #### SED #### [address] [address] Hydrochloric Acid Operator: Jose Enrique Oneal MD Monocytes/100 WBC (Bld) 7 % Normal 1-7 [facility] Comment on above: Performed By: #### B MP, CDP, CRP #### [facility] [address] [place] [address] Hydrochloric Acid Operator: Keke Romero DO #### SED #### [address] [address] Hydrochloric Acid Operator: Jose Enrique Oneal MD Neutrophil (Seg) 66 % Normal 36-66 [facility] Comment on above: Performed By: #### B MP, CDP, CRP #### [facility] [address] [place] [address] Hydrochloric Acid Operator: Keke Romero DO #### SED #### [address] [address] Hydrochloric Acid Operator: Jose Enrique Oneal MD Platelet mean volume (Bld) [Entitic vol] 8.1 fL Normal 6.0-12.0 [facility] Comment on above: Performed By: #### B MP, CDP, CRP #### [facility] [address] [place] [address] Hydrochloric Acid Operator: Keke Romero DO #### SED #### [address] [place] [address] Hydrochloric Acid Operator: Jose Enrique Oneal MD Platelets (Bld) [#/Vol] 347 10*3/uL Normal 150-450 [facility] Comment on above: Performed By: #### B MP, CDP, CRP #### [facility] [address] [place] [address] Hydrochloric Acid Operator: Keke Romero DO #### SED #### [address] [address] Hydrochloric Acid Operator: Jose Enrique Oneal MD RBC (Bld) [#/Vol] 4.42 10*6/uL Normal 4.0-5.2 [facility] Comment on above: Performed By: #### B MP, CDP, CRP #### [facility] [address] [place] [address] Hydrochloric Acid Operator: Keke Romero DO #### SED #### [address] [address] Hydrochloric Acid Operator: Jose Enrique Oneal MD WBC (Bld) [#/Vol] 9.9 10*3/uL Normal 3.5-11.0 [facility] Comment on above: Performed By: #### B MP, CDP, CRP #### [facility] [address] [place] [address] Hydrochloric Acid Operator: Keke Romero DO #### SED #### [address] [address] Hydrochloric Acid Operator: Jose Enrique Oneal MD ED Clinical Summaryon 2023 ED Clinical Summary Normal [facility] ED Note-Physicianon 10-30-19 ED Note-Physician Normal [facility] Comment on above: Result Comment: Elec tronically Signed By: Annette Watkins, Balbina H\.br\Date and Time Signed: 10/30/23 15:29 EDT ED Patient Education Noteon 10-30-2023 ED Patient Education Note Normal [facility] ED Patient Summaryon ED Patient Summary Normal [facility] No Panel Informationon 10-29 [facility] Sedimentation Rateon ESR Photometric method (Bld) [Velocity] 32 High [facility] Interpretation and review of laboratory results Abnormal [facility] Sedimentation Rate 32 mm/Hr High 0-20 [facility] Comment on above: Performed By: #### B MP, CDP, CRP #### [facility] [address] [place] [address] Hydrochloric Acid Operator: Keke Romero DO #### SED #### [facility] [address] [place] [address] Hydrochloric Acid Operator: Jose Enrique Oneal MD XR Abdomen Single viewon Radiology Study observation (narrative) [facility] ED Clinical Summaryon 2023 ED Clinical Summary Normal [facility] ED Note-Physicianon 10-26-19 ED Note-Physician Normal [facility] Comment on above: Result Comment: Elec tronically Signed By: Pedro Pablo Fletcher DO\.br\Date and Time Signed: 10/26/23 03:05 EDT ED Patient Education Noteon 10-26-2023 ED Patient Education Note Normal [facility] ED Patient Summaryon ED Patient Summary Normal [facility] Alanine aminotransferase [En zymatic activity/volume] in Serum or PlasmaOrdered By: Peter Veliz on 10-19-2023 ALT [Catalytic activity/Vol] 41 U/L Normal 7-52 [facility] Comment on above: Performed By: #### C MP, CUBLD, CBC #### [facility] [address] Albumin [Mass/volume] in Ser um or Plasma by Bromocresol green (BCG) dye binding methoOrdered By: Peter Veliz on 10-19-2023 Albumin BCG dye [Mass/Vol] 4.0 g/dL 3.5-5.7 [facility] Alkaline phosphatase [Enzyma tic activity/volume] in Serum or PlasmaOrdered By: Peter Veliz on 10-19-2023 ALP [Catalytic activity/Vol] 92 U/L Normal 34-104 [facility] Comment on above: Performed By: #### C DEYVI PARKINSON, CBC #### [address] Aspartate aminotransferase [ Enzymatic activity/volume] in Serum or PlasmaOrdered By: Peter Veliz on 10-19-2023 AST [Catalytic activity/Vol] 22 U/L Normal 13-39 [facility] Comment on above: Performed By: #### C DEYVI PARKINSON, CBC #### [address] Automated basophil %Ordered By: Peter Veliz on 10-19-2023 Basophils/100 WBC (Bld) 0.3 % Normal . [facility] Comment on above: Performed By: #### C DEYVI PARKINSON, CBC #### [address] Automated basophil countOrde red By: Peter Veliz on 10-19-2023 Basophils (Bld) [#/Vol] 0.0 10*3/uL Normal 0.0-0.2 [facility] Comment on above: Result Comment: PERF ORMED BY: [place] [address] PATHOLOGIST TUBE 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 JASON WILSON M.D. Performed By: #### C DEYVI PARKINSON, CBC #### [address] Automated blood monocyte cou ntOrdered By: Peter Veliz on 10-19-2023 Monocytes (Bld) [#/Vol] 0.8 10*3/uL Normal 0.0-0.8 [facility] Comment on above: Performed By: #### C DEYVI PARKINSON, CBC #### [address] Automated eosinophil %Ordere d By: Peter Veliz on 10-19-2023 Eosinophils/100 WBC (Bld) 1.9 % Normal . [facility] Comment on above: Performed By: #### C DEYVI PARKINSON, CBC #### [address] Automated eosinophil countOr dered By: Peter Veliz on 10-19-2023 Eosinophils (Bld) [#/Vol] 0.2 10*3/uL Normal 0.0-0.45 [facility] Comment on above: Performed By: #### C DEYVI PARKINSON, CBC #### [address] Automated monocyte %Ordered By: Peter Veliz on 10-19-2023 Monocytes/100 WBC (Bld) 6.8 % Normal . [facility] Comment on above: Performed By: #### C DEYVI PARKINSON, CBC #### [address] Automated neutrophil %Ordere d By: Peter Veliz on 10-19-2023 Neutrophils/100 WBC (Bld) 72.3 % Normal . [facility] Comment on above: Performed By: #### C DEYVI PARKINSON, CBC #### [address] Bacteria [Presence] in Urine by AutomatedOrdered By: Peter Veliz on 10-19-2023 Bacteria Auto Ql (U) None seen [HPF] None Seen [facility] Bacterial blood cultureOrder ed By: Peter Veliz on 10-19-2023 Bacteria identified Cx Nom (Bld) NO GROWTH 5 DAYS [facility] Bacteria identified Cx Nom (Bld) NO GROWTH 5 DAYS [facility] Bilirubin Test strip Ql (U)O rdered By: Peter Veliz on 10-19-2023 Bilirubin Ql (U) Negative Negative [facility] Bilirubin.total [Mass/volume ] in Serum or PlasmaOrdered By: Peter Veliz on 10-19-2023 Bilirubin [Mass/Vol] 0.5 mg/dL Normal 0.3-1.0 [facility] Comment on above: Performed By: #### C DEYVI PARKINSON, CBC #### [address] Blood Cultureon 10-19-2023 Bacteria identified Cx Nom (Bld) NO GROWTH 5 DAYS PERFORMED BY: [place] [address] PATHOLOGIST TUBE 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 JASON WILSON M.D. Normal [facility] Comment on above: Performed By: #### C DEYVI PARKINSON, CBC #### [facility] [address] [place] [address] Bacteria identified Cx Nom (Bld) NO GROWTH 5 DAYS PERFORMED BY: [facility] [address] [place] [address] PATHOLOGIST TUBE 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 JASON WILSON M.D. Normal [facility] Comment on above: Performed By: #### C DEYVI PARKINSON, CBC #### [facility] [address] [place] [address] COVID CepheidOrdered By: Cedric Veliz on 10-19-2023 SARS-CoV-2 (COVID-19) Ab IA Ql Negative Negative [facility] Comment on above: This is a duplicate Cepheid Xpert Xpress CoV-2/Flu/RSV Plus RNA by RT-PCR result to be used for statistical tracking purpose only. SARS-CoV-2 (COVID-19) RNA LINDSEY+probe Ql (Unsp spec) [facility] COVID-19 / Flu A/B / RSV PCR [...] or Cepheid Disclaimer revoked sooner. PERFORMED BY: [place] [address] PATHOLOGIST TUBE 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 JASON WILSON M.D. Normal [facility] Comment on above: Performed By: #### C DEYVI PARKINSON CBC #### [facility] [address] [place] [address] Calcium [Mass/volume] in Ser um or PlasmaOrdered By: Peter Veliz on 10-19-2023 Calcium [Mass/Vol] 8.9 mg/dL Normal 8.6-10.3 [facility] Comment on above: Performed By: #### C DEYVI PARKINSON CBC #### [place] [id number] [facility] Carbon dioxide, total [Moles /volume] in Serum or PlasmaOrdered By: Peter Veliz on 10-19-2023 CO2 [Moles/Vol] 25.7 mmol/L Normal 21.0-31.0 [facility] Comment on above: Performed By: #### C DEYVI PARKINSON, CBC #### [address] Cepheid COVID PCR Negativeon 10-19-2023 SARS-CoV-2 (COVID-19) RNA LINDSEY+probe Ql (Unsp spec) Negative Normal Negative [facility] Comment on above: Result Comment: This is a duplicate Cepheid Xpert Xpress CoV-2/Flu/RSV Plus RNA by RT-PCR result to be used for statistical tracking purpose only. PERFORMED BY: [place] [address] PATHOLOGIST TUBE 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 JASON WILSON M.D. Performed By: #### C DEYVI PARKINSON, CBC #### [address] Chloride [Moles/volume] in S saw or PlasmaOrdered By: Peter Veliz on 10-19-2023 Chloride [Moles/Vol] 107 mmol/L Normal 98-107 [facility] Comment on above: Performed By: #### C DEYVI PARKINSON, CBC #### [address] Color of Urine by AutoOrdere d By: Peter Veliz on 10-19-2023 Color (U) Yellow Normal Yellow [facility] Comment on above: Order Comment: Name Collection Type:: Clean-Voided Midstream Performed By: #### C DEYVI PARKINSON, CBC #### [address] Complete Blood Count Auto Di ffon 10-19-2023 Mean Corpuscular HGB Conc 34.0 g/dL Normal 32.0-35.0 [facility] Comment on above: Performed By: #### C DEYVI PARKINSON, CBC #### [address] Monocytes/100 WBC (Bld) 19.02 % Normal 0.00-20.00 [facility] Comment on above: Performed By: #### C DEYVI PARKINSON, CBC #### [address] NRBC% 0.2 /100{WBC} Normal 0-0.5 [facility] Comment on above: Performed By: #### C DEYVI PARKINSON, CBC #### [address] Comprehensive Metabolic Pane cassie 10-19-2023 Albumin [Mass/Vol] 4.0 g/dL Normal 3.5-5.7 [facility] Comment on above: Performed By: #### C DEYVI PARKINSON, CBC #### [place] [address] [place] Creatinine Clr Calc Pharmacy 115.17 Normal [facility] Comment on above: Result Comment: PERF ORMED BY: [place] [address] PATHOLOGIST TUBE 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 JASON WILSON M.D. Performed By: #### C DEYVI PARKINSON, CBC #### [address] GFR/1.73 sq M.predicted MDRD (S/P/Bld) [Vol rate/Area] mL/min/{1.73_m2} Normal [facility] Comment on above: Performed By: #### C DEYVI PARKINSON, CBC #### [address] Creatinine [Mass/volume] in Serum or PlasmaOrdered By: Peter Veliz on 10-19-2023 Creatinine [Mass/Vol] 0.74 mg/dL Normal 0.60-1.20 [facility] Comment on above: Performed By: #### C DEYVI PARKINSON, CBC #### [place] [address] [place] Dipstick and Microscopicon 0 10-19-2023 Bacteria,Urine None Seen Normal None Seen [facility] Comment on above: Order Comment: Name Collection Type:: Clean-Voided Midstream Performed By: #### C DEYVI PARKINSON, CBC #### [place] [address] [place] Bilirubin,Urine Negative Normal Negative [facility] Comment on above: Order Comment: Name Collection Type:: Clean-Voided Midstream Performed By: #### C MP, CUBLD, CBC #### [facility] [address] [place] [address] [place] Glucose Ql (U) Normal Normal Normal The [facility] Comment on above: Order Comment: Name Collection Type:: Clean-Voided Midstream Performed By: #### C MP, CUBLD, CBC #### [facility] [address] [place] [address] [place] Granular Casts, Urine 1-2 High None Seen [facility] Comment on above: Order Comment: Name Collection Type:: Clean-Voided Midstream Performed By: #### C MP, CUBLD, CBC #### [facility] [address] [place] [address] [place] Hyaline Casts,Urine 0-8 Normal 0-8 [facility] Comment on above: Order Comment: Name Collection Type:: Clean-Voided Midstream Performed By: #### C MP, CUBLD, CBC #### [facility] [address] [place] [address] [place] Mucus,Urine Rare Normal [facility] Comment on above: Order Comment: Name Collection Type:: Clean-Voided Midstream Result Comment: PERF ORMED BY: [place] [address] PATHOLOGIST TUBE 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 JASON WILSON M.D. Performed By: #### C MP, CUBLD, CBC #### [facility] [address] [place] [address] [place] Nitrite,Urine Negative Normal Negative [facility] Comment on above: Order Comment: Name Collection Type:: Clean-Voided Midstream Performed By: #### C MP, CUBLD, CBC #### [facility] [address] [place] [id number] [place] Occult Blood,Urine Negative Normal Negative The [facility] Comment on above: Order Comment: Name Collection Type:: Clean-Voided Midstream Result Comment: PERF ORMED BY: [address] [place] [address] PATHOLOGIST TUBE 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 JASON WILSON M.D. Performed By: #### C MP, CUBLD, CBC #### [address] RBC,Urine 1-2 Normal 0-4 [facility] Comment on above: Order Comment: Name Collection Type:: Clean-Voided Midstream Performed By: #### C MP, CUBLD, CBC #### [address] Specificy [place],Urine 1.027 Normal 1.001-1.030 [facility] Comment on above: Order Comment: Name Collection Type:: Clean-Voided Midstream Performed By: #### C MP, CUBLD, CBC #### [address] Squamous Epithelial Cell,Urine 3-4 High 0-2 [facility] Comment on above: Order Comment: Name Collection Type:: Clean-Voided Midstream Performed By: #### C MP, CUBLD, CBC #### [address] Urobilinogen,Urine Normal Normal Normal The [facility] Comment on above: Order Comment: Name Collection Type:: Clean-Voided Midstream Performed By: #### C MP, CUBLD, CBC #### [place] [address] [place] WBC,Urine 1-2 Normal 0-4 [facility] Comment on above: Order Comment: Name Collection Type:: Clean-Voided Midstream Performed By: #### C MP, CUBLD, CBC #### [address] Epithelial cells.squamous [# /area] in Urine sediment by Automated countOrdered By: Peter Veliz on 10-19-2023 Epithelial cells.squamous Auto (Urine sed) [#/Area] 3-4 [HPF] High 0-2 [facility] Erythrocyte distribution wid th [Ratio] by Automated countOrdered By: Peter Veliz on 10-19-2023 Erythrocyte distribution width (RBC) [Ratio] 13.9 % Normal 11.9-15.3 [facility] Comment on above: Performed By: #### C DEYVI PARKINSON, CBC #### [facility] [address] Erythrocytes [#/area] in Uri ne sediment by Automated countOrdered By: Peter Veliz on 10-19-2023 RBC Auto (Urine sed) [#/Area] 1-2 [HPF] 0-4 [facility] Erythrocytes [#/volume] in B lood by Automated countOrdered By: Peter Veliz on 10-19-2023 RBC (Bld) [#/Vol] 4.47 10*6/uL Normal 3.60-5.00 [facility] Comment on above: Performed By: #### C DEYVI PARKINSON, CBC #### [address] Glucose [Mass/volume] in Ser um or PlasmaOrdered By: Peter Veliz on 10-19-2023 Glucose [Mass/Vol] 87 mg/dL Normal 70-100 [facility] Comment on above: ADA recommended refe rence rangeRandom Glucose Reference Range is dependent on time and content of last meal. Glucose of more than 200 mg/dL in a nonstressed, ambulatory subject supports the diagnosis of Diabetes Mellitus. Result Comment: [place] om Glucose Reference Range is dependent on time and content of last meal. Glucose of more than 200 mg/dL in a nonstressed, ambulatory subject supports the diagnosis of Diabetes Mellitus. ADA recommended reference range Performed By: #### C DEYVI PARKINSON, CBC #### [facility] [address] Glucose [Mass/volume] in Uri ne by Test stripOrdered By: Peter Veliz on 10-19-2023 Glucose Test strip (U) [Mass/Vol] Normal mg/dL Normal [facility] Granular casts [#/area] in U rine by Computer assisted methodOrdered By: Peter Veliz on 10-19-2023 Granular casts Computer assisted (U) [#/Area] 1-2 [LPF] High None Seen [facility] Hematocrit [Volume Fraction] of Blood by Automated countOrdered By: Peter Veliz on 10-19-2023 Hematocrit (Bld) [Volume fraction] 41.9 % Normal 34.0-46.4 [facility] Comment on above: Performed By: #### C DEYVI PARKINSON, CBC #### [address] Hemoglobin Test strip Ql (U) Ordered By: Peter Veliz on 10-19-2023 Hemoglobin Ql (U) Negative Negative [facility] Hemoglobin [Mass/volume] in BloodOrdered By: Peter Veliz on 10-19-2023 Hemoglobin (Bld) [Mass/Vol] 14.2 g/dL Normal 11.8-15.4 [facility] Comment on above: Performed By: #### C DEYVI PARKINSON, CBC #### [place] [address] [place] Hyaline casts [#/area] in Ur ine sediment by Automated countOrdered By: Peter Veliz on 10-19-2023 Hyaline casts Auto (Urine sed) [#/Area] 0-8 [LPF] 0-8 [facility] Ketones [Presence] in Urine by Test stripOrdered By: Peter Veliz on 10-19-2023 Ketones Ql (U) Negative Normal Negative [facility] Comment on above: Order Comment: Name Collection Type:: Clean-Voided Midstream Performed By: #### C DEYVI PARKINSON, CBC #### [facility] [address] [place] [address] [place] Lactate [Moles/volume] in Se rum or PlasmaOrdered By: Peter Veliz on 10-19-2023 Lactate [Moles/Vol] 1.0 mmol/L Normal 0.5-2.2 [facility] Comment on above: Result Comment: PERF ORMED BY: [place] [address] PATHOLOGIST TUBE 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 JASON WILSON M.D. Performed By: #### C DEYVI PARKINSON, CBC #### [place] [address] [place] Leukocyte esterase [Presence ] in Urine by Test stripOrdered By: Peter Veliz on 10-19-2023 Leukocyte esterase Test strip Ql (U) Negative Normal Negative [facility] Comment on above: Order Comment: Name Collection Type:: Clean-Voided Midstream Performed By: #### C DEYVI PARKINSON, CBC #### [facility] [address] Leukocytes [#/area] in Urine sediment by Automated countOrdered By: Peter Veliz on 10-19-2023 WBC Auto (Urine sed) [#/Area] 1-2 [HPF] 0-4 [facility] Leukocytes [#/volume] correc lisa for nucleated erythrocytes in Blood by Automated counOrdered By: Peter Veliz on 10-19-2023 WBC corrected for nucl RBC Auto (Bld) [#/Vol] 11.5 10*3/uL 3.8-11.6 [facility] Leukocytes [#/volume] in Blo od by Automated countOrdered By: Peter Veliz on 10-19-2023 WBC (Bld) [#/Vol] 11.5 10*3/uL Normal 3.8-11.6 [facility] Comment on above: Performed By: #### C DEYVI PARKINSON, CBC #### [facility] [address] [place] [address] [place] Lymphocytes [#/volume] in Bl ood by Automated countOrdered By: Peter Veliz on 10-19-2023 Lymphocytes (Bld) [#/Vol] 2.2 10*3/uL Normal 1.00-4.8 [facility] Comment on above: Performed By: #### C DEYVI PARKINSON, CBC #### [facility] [address] [place] [address] [place] Lymphocytes/100 leukocytes i n Blood by Automated countOrdered By: Peter Veliz on 10-19-2023 Lymphocytes/100 WBC (Bld) 18.7 % Normal . [facility] Comment on above: Performed By: #### C DEYVI PARKINSON, CBC #### [facility] [address] [place] [address] [place] MCH [Entitic mass] by Automa lisa countOrdered By: Peter Veliz on 10-19-2023 MCH (RBC) [Entitic mass] 31.9 pg Normal 24.7-34.3 [facility] Comment on above: Performed By: #### C DEYVI PARKINSON, CBC #### [facility] [address] [place] [address] MCHC Auto (RBC) [Mass/Vol]Or dered By: Peter Veliz on 10-19-2023 MCHC (RBC) [Mass/Vol] 34.0 g/dL 32.0-35.0 [facility] MCV [Entitic volume] by Auto mated countOrdered By: Peter Veliz on 10-19-2023 MCV (RBC) [Entitic vol] 93.6 fL Normal 80-100 [facility] Comment on above: Performed By: #### C DEYVI PARKINSON, CBC #### [address] Monocyte distribution width [Entitic volume] in Blood by AutomatedOrdered By: Peter Veliz on 10-19-2023 Monocyte distribution width Auto (Bld) [Entitic vol] 19.02 % 0.00-20.00 [facility] Mucus [Presence] in Urine by AutomatedOrdered By: Peter Veliz on 10-19-2023 Mucus Auto Ql (U) Rare [LPF] [facility] Neutrophils [#/volume] in Bl ood by Automated countOrdered By: Peter Veliz on 10-19-2023 Neutrophils (Bld) [#/Vol] 8.3 10*3/uL High 1.8-7.7 [facility] Comment on above: Performed By: #### C DEYVI PARKINSON, CBC #### [facility] [address] [place] [address] Nitrite Test strip Ql (U)Ord ered By: Peter Veliz on 10-19-2023 Nitrite Ql (U) Negative Negative [facility] No Panel InformationOrdered By: Peter Veliz on 10-19-2023 Blood Gas Critical Value See comment [facility] Comment on above: Critical Value castro d on: 10/19/2023 at 12:39 Blood Gas Sample Site Venous [facility] FiO2 21 % [facility] Venous Blood Base Excess -0.8 mmol/L -3.0-3.0 [facility] Venous Blood Oxygen Content 6.1 mmol/L Low 6.6-9.7 [facility] Venous Blood Oxygen Saturation 70.1 % Low 73.0-76.0 [facility] Venous Blood Partial Pressure CO2 38.6 mm[Hg] 38.0-50.0 [facility] Venous Blood Partial Pressure O2 34.7 mm[Hg] Low 35.0-45.0 [facility] Venous Blood pH 7.41 7.32-7.43 [facility] Estimated GFR (CKD-EPI) > 60.0 mL/Min [facility] Pharmacy Creatinine Clearance (Chem 115.17 [facility] Nucleated erythrocytes [Pres ence] in Blood by Automated countOrdered By: Peter Veliz on 10-19-2023 Nucleated RBC Auto Ql (Bld) 0.2 /100{WBC} 0-0.5 [facility] Platelet mean volume [Entiti c volume] in Blood by Automated countOrdered By: Peter Veliz on 10-19-2023 Platelet mean volume (Bld) [Entitic vol] 8.1 fL Normal 6.3-10.7 [facility] Comment on above: Performed By: #### C DEYVI PARKINSON, CBC #### [facility] [address] Platelets [#/volume] in Bloo d by Automated countOrdered By: Peter Veliz on 10-19-2023 Platelets (Bld) [#/Vol] 317 10*3/uL Normal 150-450 [facility] Comment on above: Performed By: #### C DEYVI PARKINSON, CBC #### [facility] [address] Potassium [Moles/volume] in Serum or PlasmaOrdered By: Peter Veliz on 10-19-2023 Potassium [Moles/Vol] 4.2 mmol/L Normal 3.5-5.1 [facility] Comment on above: Hemolysis is present at a level that could interfere with the result.Contact lab if redraw is required Result Comment: Hemo lysis is present at a level that could interfere with the result. Contact lab if redraw is required Performed By: #### C DEYVI PARKINSON, CBC #### [facility] [address] Protein [Mass/volume] in Ser um or PlasmaOrdered By: Peter Veliz on 10-19-2023 Protein [Mass/Vol] 7.4 g/dL Normal 6.4-8.9 [facility] Comment on above: Performed By: #### C DEYVI PARKINSON, CBC #### [address] Protein [Mass/volume] in Uri ne by Test stripOrdered By: Peter Veliz on 10-19-2023 Protein (U) [Mass/Vol] 20 mg/dL High Negative [facility] Comment on above: Order Comment: Name Collection Type:: Clean-Voided Midstream Performed By: #### C DEYVI PARKINSON, CBC #### [address] Serum globulin measurement b y calculation (mass/volume)Ordered By: Peter Veliz on 10-19-2023 Globulin (S) [Mass/Vol] 3.4 g/dL Normal [facility] Comment on above: Performed By: #### C DEYVI PARKINSON, CBC #### [address] Serum or plasma albumin/glob ulin mass ratioOrdered By: Peter Veliz on 10-19-2023 Albumin/Globulin [Mass ratio] 1.2 {ratio} [facility] Comment on above: Performed By: #### C DEYVI PARKINSON, CBC #### [address] Serum or plasma anion gap de terminationOrdered By: Peter Veliz on 10-19-2023 Anion gap [Moles/Vol] 10.5 mmol/L Normal 6.0-15.0 [facility] Comment on above: Performed By: #### C DEYVI PARKINSON, CBC #### [place] [address] [place] Sodium [Moles/volume] in Ser um or PlasmaOrdered By: Peter Veliz on 10-19-2023 Sodium [Moles/Vol] 139 mmol/L Normal 136-145 [facility] Comment on above: Performed By: #### C DEYVI PARKINSON, CBC #### [facility] [address] Specific gravity Test strip (U) [Rel density]Ordered By: Peter Veliz on 10-19-2023 Specific gravity (U) [Rel density] 1.027 1.001-1.030 [facility] Urea nitrogen [Mass/volume] in Serum or PlasmaOrdered By: Peter Veliz on 10-19-2023 Urea nitrogen [Mass/Vol] 17 mg/dL Normal 7-25 [facility] Comment on above: Performed By: #### C DEYVI PARKINSON, CBC #### [facility] [address] [place] [address] Urine appearanceOrdered By: Peter Veliz on 10-19-2023 Appearance (U) Clear Normal Clear [facility] Comment on above: Order Comment: Name Collection Type:: Clean-Voided Midstream Performed By: #### C DEYVI PARKINSON, CBC #### [facility] [address] [place] [address] Urobilinogen Test strip (U) [Mass/Vol]Ordered By: Peter Veliz on 10-19-2023 Urobilinogen (U) [Mass/Vol] Normal mg/dL Normal [facility] Venous Blood GasOrdered By: Peter Veliz on 10-19-2023 CO2 [Moles/Vol] 24.8 mmol/L Normal 24.0-29.0 [facility] Comment on above: Performed By: #### V BG #### Point of Care testing , HCO3 (Bld) [Moles/Vol] 23.6 mmol/L Normal 23.0-29.0 [facility] Comment on above: Performed By: #### V BG #### Point of Care testing , Venous Blood Gason Respiratory Critical Normal [facility] Comment on above: Result Comment: Crit ical Value called on: 10/19/2023 at 12:39 PERFORMED BY: [place] [address] PATHOLOGIST TUBE 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 JASON WILSON M.D. Performed By: #### V BG #### Point of Care testing , VBG Base Excess -0.8 mmol/L Normal -3.0-3.0 [facility] Comment on above: Performed By: #### V BG #### Point of Care testing , VBG Draw Site Venous Normal [facility] Comment on above: Performed By: #### V BG #### Point of Care testing , VBG Frac Inspired O2 21 % Normal [facility] Comment on above: Performed By: #### V BG #### Point of Care testing , VBG O2 Content 6.1 mmol/L Low 6.6-9.7 [facility] Comment on above: Performed By: #### V BG #### Point of Care testing , VBG Oxygen Saturation 70.1 % Low 73.0-76.0 [facility] Comment on above: Performed By: #### V BG #### Point of Care testing , VBG PCO2 38.6 mm[Hg] Normal 38.0-50.0 [facility] Comment on above: Performed By: #### V BG #### Point of Care testing , VBG PH Venous PH 7.41 Normal 7.32-7.43 [facility] Comment on above: Performed By: #### V BG #### Point of Care testing , VBG PO2 34.7 mm[Hg] Low 35.0-45.0 [facility] Comment on above: Performed By: #### V BG #### Point of Care testing , XR chest 1V portableon 10-18 XR chest 1V portable [facility] [place] [address] XRay Report Signed Patient: Jerad Tracy MR#: [id number] 49 : 1975 Acct:[id number] Age/Sex: 48 / F ADM Date: 10/19/23 Loc: ER Room: Type: [facility] ER Attending Dr: Copies to: Peter Veliz [...] Velazquez Jr., D.OAdrien10/19/2023 12:21 PM Dictation Location: [facility] Transcribed By: [facility] 10/19/23 1221 Dictated By: Johan Velazquez Jr, DO 10/19/23 1219 Signed By: 10/19/23 1221 Normal [facility] pH of Urine by Test stripOrd ered By: Peter Veliz on 10-19-2023 pH (U) 6.5 [pH] Normal 5.0-9.0 [facility] Comment on above: Order Comment: Name Collection Type:: Clean-Voided Midstream Performed By: #### C MPBETTYLD, CBC #### [facility] [address] CBC panel Auto (Bld)on 10-15 Erythrocyte distribution width (RBC) [Ratio] 13.3 % Normal 11.5-14.[address] [facility] Comment on above: Performed By: #### 5 8410-2 ####JOLENE Cantu ([id number])[facility] ([facility])[id number] [place] [address] Hematocrit (Bld) [Volume fraction] 39.7 % Normal 36.0-46.[address] [facility] Comment on above: Performed By: #### 5 8410-2 ####JOLENE Cantu ([id number])[facility] ([facility])[id number] [place] [address] Hemoglobin (Bld) [Mass/Vol] 12.8 g/dL Normal 12.0-16.[address] [facility] Comment on above: Performed By: #### 5 8410-2 ####JOLENE Cantu ([id number])[facility] ([facility])[id number] [place] [address] MCH (RBC) [Entitic mass] 30.8 pg Normal 26.0-34.[address] [facility] Comment on above: Performed By: #### 5 8410-2 ####JOLENE Cantu ([id number])[facility] ([facility])[address] [place] [address] MCHC (RBC) [Mass/Vol] 32.2 g/dL Normal 32.0-36.0 [facility] Comment on above: Performed By: #### 5 8410-2 ####JOLENE Cantu ([id number])[facility] ([facility])[address] [place] [address] MCV (RBC) [Entitic vol] 96 fL Normal 80-[address] [facility] Comment on above: Performed By: #### 5 8410-2 ####JOLENE Cantu ([id number])[facility] ([facility])[address] [place] [address] Nucleated RBC/100 WBC (Bld) [Ratio] 0.0 /100 WBCs Normal 0.0-0.[address] [facility] Comment on above: Performed By: #### 5 8410-2 ####JOLENE Cantu ([id number])[facility] H[facility])[address] [place] [address] Platelets (Bld) [#/Vol] 268 x10*3/uL Normal 150-[address] [facility] Comment on above: Performed By: #### 5 8410-2 ####JOLENE Cantu ([id number])[facility] ([facility])[address] [place] [address] RBC (Bld) [#/Vol] 4.15 x10*6/uL Normal 4.00-5.20 [facility] Comment on above: Performed By: #### 5 8410-2 ####JOLENE Cantu ([id number])[facility] ([facility])[address] [place] [address] WBC (Bld) [#/Vol] 6.6 x10*3/uL Normal 4.4-11.3 [facility] Comment on above: Performed By: #### 5 8410-2 ####JOLENE Cantu ([id number])[facility] ([facility])[id number] [place] [address] Coding Summaryon 10-16-2023 Coding Summary HTMLBase 64 TdlusztrDMt3nUo+PGhlYWQ +XQ5PUCOcM89urFPrmW8rZ5 NMTElOSywgQVBQTElOSyIgb lCvPK6pgUPdHMMl IC8+GF9hVWYfCwiupFBpa1X 1pLN6Z48bpo4mNAfxjQD4PD DiJeGjpsnnl9wmqSj9SFqzR mluOyBt XPOkcU32UUV5yU22Ti51lOD bsGTnr0qlwVn6JiOxFCXkIR K8zDaqFKbqu6HmSKCaR76ts LTsx9D3 VBDwbXtqjGVmKyHgeUL5yN8 mZUpwgyeri2kppopdNux0pn 89gNIan6Q5mNL3N2VipyE1R GJvbGQg JfmlfKUWpC6yajbow8alnzw bDdTsREPzESa5VXu6QPMzuC vhRcGzKK85TXM9ZDPsnnQxX 2FsLWFs bJuqVqS3h5K8Dm5AR2JBQyk qN0HVTUIOSRsafDS+PC90cj 48U8HsZqvvEgf5KPYmYWR3j CL4mJ8k GPXyYEuze9F8dQB3B8CisnB tbh2hp7cfYJCaQOsyH29jkE Eeg4O0MNYfzAI2IZJgkFpwW iBzaG93 Oyc+IEEkzIyqa7TwCdyap5j kc2gazEb1NfthYWTqueQvlL vhVUY9w6XyIt9iRABrzZB0n XT3iI1c JtSiEfX5MZygY742VkWqpRU uQfhzP96fV3VnqQN+PHRyPj j2MCFjuLxaVW5hC9DfUIBhc mctbGVm eIvmST2iZHQrpmvwYHBxlW8 tPQMuA0j7ApTwLlI9ACmtZ9 ZoPUDjorpiLr87wU6tIfGsB xD5BVjq I4JynpH0PSOfyZSdSNxzPIP 0Y11un3J5HBOiIYXjCOZ1dN V9bD7odGrstqqxmMKfeFbrs mVydGlj QDfsQBoxH751DNGcvEjmCgY vZGluZyBEYXRlOiAgMDcvMj QvMjAyNDwvdGQ+UWFkCLB1d WxlPSAn yLCfCAjrVj2obTmbxJdfYP9 pNBVdiqctXVIqlC4iXCTzgT QtjVewXO8rDILusfkip704Z iAxMHB0 JDSgiGFbF8TyuX7nTtQvUSX uSPSdL7KotJIvOOtdG258BP isYuB3GFXhdxFiI6RoLNUrw WduOiB0 u5T6Az7Hl2PpzgbiT1UupTT pDoDgHcpuVGb9Q6JhZnhbmV I+JJ01NXVjYL03JBn0PBZ8y WxlPSdi JULqR7EdeM1rRhHrQGOyGTF kOyc+PHRhYmxlIHdpZHRoPS dvQYWnFcItwHczRL0pKz7pX GVyLWNv iMdqgMHxPdCpv7ylGJEmDUk iEQ6kzHvyF2DlcLV6KZDyg1 h6Hm60E56uW9VrlHU+PGNvb WK7sOM1 tH9eOvGqXaY9GQwmN942XuL fzOHgEwyqe0okz5odzBb4Ya V8JBVmctWuyWcqPXS9a8JiB e40D09x IHdpZHRoPSIxNSUiIHZhbGl tul6ogT5dAk1+EVEpmOK4tS S0xH8dWvXuQjC2QEgxZ755F nRvcCIv Alals3edg9uarDw8ZnRnDMJ zrbLafNpvZGQ7k2DcCf74V7 AukWdqx4WcZwc9fd90gEXqo 9N2mNB4 U4NkWQHefthtqEYqyHijRR2 eAHWkrsayBIPwhE1iJKXiC7 o0VcZdHtY6HHckN8HbqfE0J GJvbGQg IMRwmOOWdQ0aijzhh4vdajv fHoXbHBVjGBp1NEj7SSXixG bwMpYkHTP8EmZ9JQN8cIYwd H0cfKus sycnkJ9iDqk+WNX6yRKxqOT MXL1sHhnjcDV+TFBuSFR6xA yeRKeuPFVjnO6vFAGjL8w8J iAwLjA1 JKhyM4MtwpT0ZSIavVSwPJK hwGTLkA5ffvuvr4xhbavaLh AiFCSqDXu6NOl1ATPrrAdiO iBsZWZ0 DkM2PWA2sKXjfJ4otWyhxoa vpO2fXmh+MfktvJydMNS8NI r1N9AdVau9UZNmeBsfQW5wr GFkZGlu Pe6ynTxbdUtcDM3pWYYprzy kn792MoPmo6ctIKTttNZwDF ngMRC8Q27hk7X8ERRjMZTkJ NH7yPC1 tM5jtMwbxbvjnKZgfKdycuE vaTizMMssHOxbD127ZVXduA bpLmInOIv7U6PbAjp9URSli BebUA9d wDYwETfqVg2hoUpqkCalFH4 iNUArgivth153DvWkz4ruZW OlfMQuCGqiHWI8B97lc5X3R CMwMDAw NXQ2wCF5pV3erNalfvkqqGP mdDsgdmVydGljYWwtYWxpZ2 74KKGnhClkIiYatBn3J4BhQ gd4YEZz gOdsYH5nnCHkXAqnLo3biNb xfIsiAC0tKJOvglmjw607Xp Rei7xsFGMaiDSeQRtcUKG8U 13bi4W1 TQCtGTZlEII8kAK7xV2euOj nbjogbGVmdDsgdmVydGljYW njRTcbG308ZVAyoItuYkRzg GllbnQg TYliKTh6K6BzBfggcTN+PC9 7KZDiCC12dCCesHOxk4utaH y7WgUeKIUoAZP2yQndOIggq 3JkZXIt K56hnMRzh5A2RTDolKhctTB dQbYmrSO1cY4jEMbaukxfk6 brjhreTuorx2oqlk89nF12T 29sIHdp ZHRoPSIzMCUiIHZhbGlnbj0 kbA8pBf7+ROCtnQG1iVH3kZ 9aSPGzRnU2FZxeD824RiOkt CIvPjxj b5kvh7juaUf8UhQ2GGCcibU byVzaWED5i4HwOv65K23kYA dpZHRoPSIyMCUiIHZhbGlnb n1rnT8n Ii8+UUQjrJL3xMS0wA2hAnH lDcR7QGznV647VuJcbBIzWt ubE18jX2PliIB+DQLyPwq9M CBzdHls WS5okBPnJNtvTk4rUWR0ZsN tXgRqPVeoB1MkEZHhyvpddm bzwEL3CYCoMWKggF01Wa4js DogMTBw oKBImF2prikwd2ztsdhvRuR aHMTrTPx7ICk7OBFvhKuuNh VfTXW9LsB6WRH8uJSzfT3js Glnbjog qD5oF5TdQHVnvswjNp28eX1 nIjXeUaM0ZNyxPzb+TElFQi irLOOTYXITJJQDLeqNWjQ3Y 7AuSzg7 LKKzbUazJR2qkGNdKAycIs4 uyGcmhQuwUT3dWDXojjdyFI NwtT9jUSXubUCigEspUI0mM TBpbjtm c219EeGcOGQ0NOIckQBvL1R xdA6aIcHyTBQkSPRuS4HrjA SeCOrdK083GKtfZhS0VNLco jTjX7Yp AXOpeExxGtD9w3V1Vx7kSl8 fQE2xTUd6FT62LP69yMYvg8 L8mXC6Z6OjCMDpjgmrcmddh NQ5NEOc UYMauY82aVNwLUtnRz7hy6W 1l143EOVpYKIdfS39Pk2pdE ciZPBljCAUyA9zzjxkz1dyo jogIzAw FXJbTCs1DRd3USGfzKkaRzC fBIX3KtZ7OYE5bRPpwK8gqQ cttkhbhF7mJrd+NDYgWWVhc hW1Q7Vx Wld0DYXtqNxeGV5bjITgOWr iEo2jbTeuiIszWD3aDKZasj gwRNYrzP0bDNDtiROzoSlmN L2pNSGb nyyvi789RuPeFQS4QXQthUH fH4JcjB8qMqRsTIQzPCUdR6 EihMHiRAamD745RAnoXiY8Q HZlcnRp T6AgIBGccDmtTwM0c2I4Vy5 BJG2FUMN2T8WqOiv7HVFjjB thRU6exUApULzhXp3ryDqsu HdoBS6x FQRzsdprOOMzjC9vFTPgoJC naWniUN6sQPXgwgwxa207Op OgMPY7HGBcgPFtL3XzmM8qP iAjMDAw DRQaA6NpoKYsTYrvO591YZm sHwL4VKIcilCnT6TcFFWieT dqXeI5p6X9Qu2KsEAjN5LpX 5l8B0Tm PjwvdHI+KQ20DUUdIY41eKD kiHHin3howNm8TcSdMOPgGO B9iEsjIOoug2UiOXVmS99im XYpp5O2 FOEmyZjlpIUfOdJydMM1kO2 wOFkherzct8itdkzuQmppb7 opul60kH41M30eUYcaCKYzO SIzMCUi PIDifGzsnj1wiW3eEa4+PGN jcOZ5bWC6zP3sMtJjEpD9TL iqV912KcWebTZoBqibt7hmn 9pqqZq3 PmNpDRFljrIkeFnlCZA9d4F zUo01Y61wHNqkAMDzXJCaOB QwRWDaaYrgpw9hyE4jNs2+P V5ki7ij gx25qD76kGG+SQLsLWT3jBv yOGruPRBdsQ0lLTjpPrN6OP ZaFsJzgF50rEXgTWfaUa8oc WdodDog HL4sVTDyrhbcg538DqUrh9z xESExaBZgLEifVYZ9R62kk7 M0RQHrMABjDMM1fEX0wN3jy Glnbjog bGVmdDsgdmVydGljYWwtYWx gU257ASJglKjbFsIkdYNuW9 xqvpCGFW0cHoxthIL+PHRkI CS2cPch JCabEKRptG9cGWScW0o8OqJ wJsQ0UCzbV5VnkeH4XZFhuE LyWHRosMTVqD6zzomks9baz jogIzAw DHWgVAw1MQx1OZKcmLubVmX tUVE0IxA4LUZ4hBViyU4mbM wepbgvzT2lQhz+RklOOjwvd GQ+PHRk DXF8nYlqSCpaWOBltB5gUGK zA2p6RpTuMsP1GNjbV1Qidw Q0DSKbvPKjPRDoaGWXgN0ec kgan5vd fgkbBpUuTZYzIQz5OHi4ALW gyAfbLsBcHXR9YmE8JHQ3bC JecR6ynBlopihudP2zUrg+T VJOOjwv dGQ+JCSiXXM0cMuaXGsuJNZ suT4yIPQvY6u7BtKpEbN0OO zzU7IqmpI4KVApoBWaBSKcv YRDdC8e kluqs8qamygbHkFmVACmYMq 9CUh0CLDboPzqZfAjPQB8Ko W6EVQ3nNFjbT2ypIhneqcsb G9wOyc+ RVG1AWJ5WS39HC39H3RfTta vdGFibGU+PHRhYmxlIHdpZH FdLYctBFWgMgUupUhsJG1pZ p8vNBXc LWN (more content not included)... Normal [facility] Renal function 2000 panelon 10-16-2023 Albumin BCP dye [Mass/Vol] 3.7 g/dL Normal 3.4-5.[address] [facility] Comment on above: Performed By: #### 2 4362-6 ####JOLENE Cantu ([id number])[facility] ([facility])[address] [place] [address] Anion gap [Moles/Vol] 11 mmol/L Normal 10-20 [facility] Comment on above: Performed By: #### 2 4362-6 ####JOLENE Cantu ([id number])[facility] ([facility])[address] [place] [address] Calcium [Mass/Vol] 8.1 mg/dL Low 8.6-10.6 [facility] Comment on above: Performed By: #### 2 4362-6 ####JOLENE Cantu ([id number])[facility] ([facility])[address] [place] [address] Chloride [Moles/Vol] 100 mmol/L Normal 98-107 [facility] Comment on above: Performed By: #### 2 4362-6 ####JOLENE Cantu ([id number])[facility] ([facility])[address] [place] [address] CO2 [Moles/Vol] 30 mmol/L Normal 21-32 [facility] Comment on above: Performed By: #### 2 4362-6 ####JOLENE Cantu ([id number])[facility] ([facility])[address] [place] [address] Creatinine [Mass/Vol] 0.62 mg/dL Normal 0.50-1.05 [facility] Comment on above: Performed By: #### 2 4362-6 ####JOLENE Cantu ([id number])[facility] ([facility])[address] [place] [address] GFR/1.73 sq M.predicted MDRD (S/P/Bld) [Vol rate/Area] mL/min/{1.73_m2} Normal >[address] [facility] Comment on above: Result Comment: Calc ulations of estimated GFR are performed using the 2020 CKD-EPI Study Refit equation without the race variable for the IDMS-Traceable creatinine methods.https://jasn.asnjournals.org/content/early/A SN.5084183772 Performed By: #### 2 4362-6 ####JOLENE Cantu ([id number])[facility] ([facility])[address] [place] [address] Glucose [Mass/Vol] 86 mg/dL Normal 74-99 [facility] Comment on above: Performed By: #### 2 4362-6 ####JOLENE Cantu ([id number])[facility] ([facility])[address] [place] [address] Phosphate [Mass/Vol] 3.6 mg/dL Normal 2.5-4.9 [facility] Comment on above: Result Comment: The performance characteristics of phosphorus testing in heparinized plasma have been validated by the individual laboratory site where testing is performed. Testing on heparinized plasma is not approved by the FDA; however, such approval is not necessary. Performed By: #### 2 4362-6 ####JOLENE Cantu ([id number])[facility] ([facility])[address] [place] [address] Potassium [Moles/Vol] 4.3 mmol/L Normal 3.5-5.3 [facility] Comment on above: Performed By: #### 2 4362-6 ####JOLENE Cantu ([id number])[facility] ([facility])[address] [place] [address] Sodium [Moles/Vol] 137 mmol/L Normal 136-145 [facility] Comment on above: Performed By: #### 2 4362-6 ####JOLENE Cantu ([id number])[facility] ([facility])[address] [place] [address] Urea nitrogen [Mass/Vol] 16 mg/dL Normal 6-[address] [facility] Comment on above: Performed By: #### 2 4362-6 ####JOLENE Cantu ([id number])[facility] ([facility])[address] [place] [address] CBC panel Auto (Bld)on 10-14 Erythrocyte distribution width (RBC) [Ratio] 13.0 % Normal 11.5-14.[address] [facility] Comment on above: Order Comment: After transfusion completed. Performed By: #### 5 8410-2 ####JOLENE Cantu ([id number])[facility] ([facility])[id number] [place] [address] Hematocrit (Bld) [Volume fraction] 36.2 % Normal 36.0-46.[address] [facility] Comment on above: Order Comment: After transfusion completed. Performed By: #### 5 8410-2 ####JOLENE Cantu ([id number])[facility] ([facility])[address] [place] [address] Hemoglobin (Bld) [Mass/Vol] 12.4 g/dL Normal 12.0-16.[address] [facility] Comment on above: Order Comment: After transfusion completed. Performed By: #### 5 8410-2 ####JOLENE Cantu ([id number])[facility] ([facility])[address] [place] [address] MCH (RBC) [Entitic mass] 31.5 pg Normal 26.0-34.[address] [facility] Comment on above: Order Comment: After transfusion completed. Performed By: #### 5 8410-2 ####JOLENE Cantu ([id number])[facility] ([facility])[address] [place] [address] MCHC (RBC) [Mass/Vol] 34.3 g/dL Normal 32.0-36.0 [facility] Comment on above: Order Comment: After transfusion completed. Performed By: #### 5 8410-2 ####JOLENE Cantu ([id number])[facility] ([facility])[address]661 [place] [address] MCV (RBC) [Entitic vol] 92 fL Normal 80-[address] [facility] Comment on above: Order Comment: After transfusion completed. Performed By: #### 5 8410-2 ####JOLENE Cantu ([id number])[facility] ([facility])[address] [place] [address] Nucleated RBC/100 WBC (Bld) [Ratio] 0.0 /100 WBCs Normal 0.0-0.[address] [facility] Comment on above: Order Comment: After transfusion completed. Performed By: #### 5 8410-2 ####JOLENE Cantu (92231)[facility] ([facility])[address] [place] [address] Platelets (Bld) [#/Vol] 261 x10*3/uL Normal 150-[address] [facility] Comment on above: Order Comment: After transfusion completed. Performed By: #### 5 8410-2 ####JOLENE RONQUILLO L (62579)[facility] ([facility])[address] [place] [address] RBC (Bld) [#/Vol] 3.94 x10*6/uL Low 4.00-5.20 [facility] Comment on above: Order Comment: After transfusion completed. Performed By: #### 5 8410-2 ####JOLENE Cantu ([id number])[facility] ([facility])[address]38 [place] [address] WBC (Bld) [#/Vol] 10.8 x10*3/uL Normal 4.4-11.3 [facility] Comment on above: Order Comment: After transfusion completed. Performed By: #### 5 8410-2 ####JOLENE Cantu ([id number])[facility] ([facility])[address]85 [place] [address] Vancomycinon 10-15-2023 Vancomycin [Mass/Vol] 17.4 ug/mL Normal 5.0-20.0 [facility] Comment on above: Order Comment: Vanco mycin [...] ages): 10.0-20.0 ug/mL Performed By: #### 2 0578-1 ####JOLENE Cantu ([id number])[facility] ([facility])[address] [place] [address] Bacteria identifiedon 2023 Bacteria identified Cx Nom (Unsp spec) [facility] Comment on above: Performed By: #### 6 463-4 ####JOLENE Cantu (58031)[facility] ([facility])[address]42 [place] [address] Bacteria identified Cx Nom (Unsp spec) [facility] Comment on above: Performed By: #### 6 463-4 ####JOLENE Cantu ([id number])[facility] ([facility])[address] [place] [address] Bacteria identified Cx Nom (Unsp spec) [facility] Comment on above: Performed By: #### 6 463-4 ####JOLENE Cantu (58717)[facility] ([facility])[address] [facility] [place] [address] Bacteria identified Cx Nom (Unsp spec) [facility] Comment on above: Performed By: #### 6 463-4 ####JOLENE Cantu ([id number])[facility] ([facility])[address] [facility] [place] [address] Bacteria identified Cx Nom (Unsp spec) [facility] Comment on above: Performed By: #### 6 463-4 ####JOLENE Cantu (77109)[facility] ([facility])[address] [facility] [place] [address] Blood type and Indirect anti body screen panel (Bld)on 10-13-2023 ABO group Nom (Bld) O Normal [facility] Comment on above: Performed By: #### 3 4532-2 ####JOLENE Cantu ([id number])[facility] ([facility])[address] [facility] [place] [facility] [place] [address] Blood group antibody screen Ql Negative [facility] Comment on above: Performed By: #### 3 4532-2 ####JOLENE Cantu ([id number])[facility] ([facility])[address] [facility] [place] [facility] [place] [address] D Ag Ql (Bld) Positive [facility] Comment on above: Performed By: #### 3 4532-2 ####JOLENE Cantu ([id number])[facility] ([facility])[address] [facility] [place] [facility] [place] [address] CBC panel Auto (Bld)on 10-12 Erythrocyte distribution width (RBC) [Ratio] 12.9 % Normal 11.5-14.[address] [facility] Comment on above: Performed By: #### 5 8410-2 ####JOLENE Cantu ([id number])[facility] ([facility])[address] [facility] [place] [address] Hematocrit (Bld) [Volume fraction] 38.9 % Normal 36.0-46.[address] [facility] Comment on above: Performed By: #### 5 8410-2 ####JOLENE Cantu ([id number])[facility] ([facility])[address] [place] [address] Hemoglobin (Bld) [Mass/Vol] 12.7 g/dL Normal 12.0-16.[address] [facility] Comment on above: Performed By: #### 5 8410-2 ####JOLENE Cantu ([id number])[facility] ([facility])[address] [place] [address] MCH (RBC) [Entitic mass] 30.4 pg Normal 26.0-34.[address] [facility] Comment on above: Performed By: #### 5 8410-2 ####JOLENE Cantu ([id number])[facility] ([facility])[address] [place] [address] MCHC (RBC) [Mass/Vol] 32.6 g/dL Normal 32.0-36.0 [facility] Comment on above: Performed By: #### 5 8410-2 ####JOLENE Cantu ([id number])[facility] ([facility])[address] [place] [address] MCV (RBC) [Entitic vol] 93 fL Normal 80-[address] [facility] Comment on above: Performed By: #### 5 8410-2 ####JOLENE Cantu ([id number])[facility] ([facility])[address] [place] [address] Nucleated RBC/100 WBC (Bld) [Ratio] 0.0 /100 WBCs Normal 0.0-0.[address] [facility] Comment on above: Performed By: #### 5 8410-2 ####JOLENE Cantu ([id number])[facility] ([facility])[address]46 [place] [address] Platelets (Bld) [#/Vol] 293 x10*3/uL Normal 150-[address] [facility] Comment on above: Performed By: #### 5 8410-2 ####JOLENE Cantu (33859)[facility] ([facility])[address]29 [place] [address] RBC (Bld) [#/Vol] 4.18 x10*6/uL Normal 4.00-5.20 [facility] Comment on above: Performed By: #### 5 8410-2 ####JOLENE RONQUILLO L (28905)[facility] ([facility])[address]60 [place] [address] WBC (Bld) [#/Vol] 5.5 x10*3/uL Normal 4.4-11.3 [facility] Comment on above: Performed By: #### 5 8410-2 ####JOLENE Cantu (77363)[facility] ([facility])[address] [place] [address] HCG ( test) IA.rapi d Ql (U)on 10-13-2023 HCG ( test) Ql (U) Negative Normal NEGATIVE [facility] Comment on above: Performed By: #### 8 0384-1 ####JOLENE Cantu ([id number])[facility] ([facility])[address] [place] [address] PT and aPTT panel Coag (PPP) on 10-13-2023 aPTT Coag (PPP) [Time] 28 s Normal 27-38 [facility] Comment on above: Order Comment: The A PTT is no longer used for monitoring Unfractionated Heparin Therapy. For monitoring Heparin Therapy, use the Heparin Assay. Performed By: #### 3 4529-8 ####JOLENE RONQUILLO L ([id number])[facility] ([facility])[address] [place] [address] INR Coag (PPP) [Relative time] 1.0 Normal 0.9-1.[address] [facility] Comment on above: Order Comment: The A PTT is no longer used for monitoring Unfractionated Heparin Therapy. For monitoring Heparin Therapy, use the Heparin Assay. Performed By: #### 3 4529-8 ####JOLENE Cantu ([id number])[facility] ([facility])[address] [place] [address] PT Coag (PPP) [Time] 10.9 s Normal 9.8-12.8 [facility] Comment on above: Order Comment: The A PTT is no longer used for monitoring Unfractionated Heparin Therapy. For monitoring Heparin Therapy, use the Heparin Assay. Performed By: #### 3 4529-8 ####JOLENE Cantu ([id number])[facility] ([facility])[address] [place] [address] Renal function 2000 panelon 10-13-2023 Albumin BCP dye [Mass/Vol] 3.6 g/dL Normal 3.4-5.[address] [facility] Comment on above: Performed By: #### 2 4362-6 ####JOLENE Cantu ([id number])[facility] ([facility])[address] [place] [address] Anion gap [Moles/Vol] 14 mmol/L Normal 10-20 [facility] Comment on above: Performed By: #### 2 4362-6 ####JOLENE Cantu ([id number])[facility] ([facility])[address] [place] [address] Calcium [Mass/Vol] 8.0 mg/dL Low 8.6-10.6 [facility] Comment on above: Performed By: #### 2 4362-6 ####JOLENE Cantu ([id number])[facility] ([facility])[address] [place] [address] Chloride [Moles/Vol] 104 mmol/L Normal 98-107 [facility] Comment on above: Performed By: #### 2 4362-6 ####JOLENE Cantu ([id number])[facility] ([facility])[address] [place] [address] CO2 [Moles/Vol] 24 mmol/L Normal 21-32 [facility] Comment on above: Performed By: #### 2 4362-6 ####JOLENE Cantu ([id number])[facility] ([facility])[address] [place] [address] Creatinine [Mass/Vol] 0.70 mg/dL Normal 0.50-1.05 [facility] Comment on above: Performed By: #### 2 4362-6 ####JOLENE Cantu ([id number])[facility] ([facility])[address] [place] [address] GFR/1.73 sq M.predicted MDRD (S/P/Bld) [Vol rate/Area] mL/min/{1.73_m2} Normal >[address] [facility] Comment on above: Result Comment: Calc ulations of estimated GFR are performed using the 2020 CKD-EPI Study Refit equation without the race variable for the IDMS-Traceable creatinine methods.https://jasn.asnjournals.org/content//A .8132641306 Performed By: #### 2 4362-6 ####JOLENE Cantu ([id number])[facility] ([facility])[address] [place] [address] Glucose [Mass/Vol] 129 mg/dL High 74-99 [facility] Comment on above: Performed By: #### 2 4362-6 ####JOLENE Cantu ([id number])[facility] ([facility])[address] [place] [address] Phosphate [Mass/Vol] 2.2 mg/dL Low 2.5-4.9 [facility] Comment on above: Result Comment: The performance characteristics of phosphorus testing in heparinized plasma have been validated by the individual laboratory site where testing is performed. Testing on heparinized plasma is not approved by the FDA; however, such approval is not necessary. Performed By: #### 2 4362-6 ####JOLENE Cantu ([id number])[facility] ([facility])[address] [place] [address] Potassium [Moles/Vol] 3.7 mmol/L Normal 3.5-5.3 [facility] Comment on above: Performed By: #### 2 4362-6 ####JOLENE Cantu ([id number])[facility] ([facility])[address] [place] [address] Sodium [Moles/Vol] 138 mmol/L Normal 136-145 [facility] Comment on above: Performed By: #### 2 4362-6 ####JOLENE RONQUILLO L ([id number])[facility] ([facility])[address] [place] [address] Urea nitrogen [Mass/Vol] 12 mg/dL Normal 6-[address] [facility] Comment on above: Performed By: #### 2 4362-6 ####JOLENE Cantu ([id number])[facility] ([facility])[id number] [place] [address] Urinalysis complete panel (U )on 10-13-2023 Appearance (U) Clear Normal Clear [facility] Comment on above: Performed By: #### 2 4356-8 ####JOLENE RONQUILLO L ([id number])[facility] ([facility])[address] [place] [address] Bilirubin (U) [Mass/Vol] Negative Normal NEGATIVE [facility] Comment on above: Performed By: #### 2 4356-8 ####JOLENE RONQUILLO L ([id number])[facility] ([facility])[address] [place] [address] Color (U) Light-Yellow Normal Light-Yellow , Yellow, Dark-Yellow [facility] Comment on above: Performed By: #### 2 4356-8 ####JOLENE RONQUILLO L ([id number])[facility] ([facility])[address] [place] [address] Glucose Auto test strip (U) [Mass/Vol] Normal Normal Normal [facility] Comment on above: Performed By: #### 2 4356-8 ####JOLENE RONQUILLO L ([id number])[facility] ([facility])[address] [place] [address] Ketones (U) [Mass/Vol] TRACE Abnormal NEGATIVE [facility] Comment on above: Performed By: #### 2 4356-8 ####JOLENE Cantu ([id number])[facility] ([facility])[address] [place] [address] Leukocyte esterase Auto test strip Ql (U) Negative Normal NEGATIVE [facility] Comment on above: Performed By: #### 2 4356-8 ####JOLENE Cantu ([id number])[facility] ([facility])[address] [place] [address] Nitrite Auto test strip Ql (U) Negative Normal NEGATIVE [facility] Comment on above: Performed By: #### 2 4356-8 ####JOLENE Cantu ([id number])[facility] ([facility])[address] [place] [address] pH (U) 6.5 [pH] Normal 5.0, 5.5, 6.0, 6.5, 7.0, 7.5, 8.[address] [facility] Comment on above: Performed By: #### 2 4356-8 ####JOLEEN Canut ([id number])[facility] ([facility])[address] [place] [address] Protein (U) [Mass/Vol] Negative Normal NEGAT ALEXANDRE, 10 (TRACE), 20 (TRACE) [facility] Comment on above: Performed By: #### 2 4356-8 ####JOLENE Cantu ([id number])[facility] ([facility])[address] [place] [address] RBC (U) [#/Vol] Negative Normal NEGATIVE [facility] Comment on above: Performed By: #### 2 4356-8 ####JOLENE Cantu ([id number])[facility] ([facility])[address] [place] [address] Specific gravity (U) [Rel density] 1.016 Normal 1.005-1.[address] [facility] Comment on above: Performed By: #### 2 4356-8 ####JOLENE Cantu ([id number])[facility] ([facility])[address] [place] [address] Urobilinogen (U) [Mass/Vol] Normal Normal Normal [facility] Comment on above: Performed By: #### 2 4356-8 ####JOLENE Cantu ([id number])[facility] ([facility])[address] [place] [address] Vancomycinon 10-13-2023 Vancomycin [Mass/Vol] 15.8 ug/mL Normal 5.0-20.0 [facility] Comment on above: Order Comment: Vanco mycin [...] ages): 10.0-20.0 ug/mL Performed By: #### 2 0578-1 ####JOLENE Cantu ([id number])[facility] ([facility])[address] [place] [address] PICC >5 YR BEDSIDE IMAGINGon 10-12-2023 PICC >5 YR BEDSIDE IMAGING These images are not reportable by radiology and will not be interpreted by Radiologists. Normal [facility] Vancomycinon 10-12-2023 Vancomycin [Mass/Vol] 4.7 ug/mL Low 5.0-20.0 [facility] Comment on above: Order Comment: Vanco mycin [...] ages): 10.0-20.0 ug/mL Performed By: #### 2 0578-1 ####JOLENE Cantu ([id number])[facility] ([facility])[address] [place] [address] Blood type and Indirect anti body screen panel (Bld)on 10-11-2023 ABO group Nom (Bld) O Normal [facility] Comment on above: Performed By: #### 3 4532-2 ####JOLENE Cantu ([id number])[facility] ([facility])[address] [place] [address] Blood group antibody screen Ql Negative [facility] Comment on above: Performed By: #### 3 4532-2 ####JOLENE Cantu ([id number])[facility] ([facility])[address] [place] [address] D Ag Ql (Bld) Positive [facility] Comment on above: Performed By: #### 3 4532-2 ####JOLENE Cantu ([id number])[facility] ([facility])[address] [place] [address] C reactive proteinon 024 CRP [Mass/Vol] 1.04 mg/dL High <1.[address] [facility] Comment on above: Performed By: #### 1 988-5 ####JOLENE Cantu ([id number])[facility] ([facility])[address] [place] [address] CBC W Auto Differential pane l (Bld)on 10-11-2023 Basophils (Bld) [#/Vol] 0.03 x10*3/uL Normal 0.00-0.[address] [facility] Comment on above: Performed By: #### 5 7021-8 ####JOLENE Cantu ([id number])[facility] ([facility])[address] [place] [address] Basophils/100 WBC (Bld) 0.3 % Normal 0.0-2.[address] [facility] Comment on above: Performed By: #### 5 7021-8 ####JOLENE Cantu ([id number])[facility] ([facility])[address] [place] [address] Eosinophils (Bld) [#/Vol] 0.27 x10*3/uL Normal 0.00-0.[address] [facility] Comment on above: Performed By: #### 5 7021-8 ####JOLENE Cantu ([id number])[facility] ([facility])[address] [place] [address] Eosinophils/100 WBC (Bld) 2.4 % Normal 0.0-6.[address] [facility] Comment on above: Performed By: #### 5 7021-8 ####JOLENE Cantu ([id number])[facility] ([facility])[address] [place] [address] Erythrocyte distribution width (RBC) [Ratio] 12.9 % Normal 11.5-14.[address] [facility] Comment on above: Performed By: #### 5 7021-8 ####JOLENE Cantu ([id number])[facility] ([facility])[address] [place] [address] Hematocrit (Bld) [Volume fraction] 39.2 % Normal 36.0-46.[address] [facility] Comment on above: Performed By: #### 5 7021-8 ####JOLENE Cantu ([id number])[facility] ([facility])[address] [place] [address] Hemoglobin (Bld) [Mass/Vol] 13.6 g/dL Normal 12.0-16.[address] [facility] Comment on above: Performed By: #### 5 7021-8 ####JOLENE Cantu ([id number])[facility] ([facility])[address] [place] [address] Immature granulocytes (Bld) [#/Vol] 0.05 x10*3/uL Normal 0.00-0.[address] [facility] Comment on above: Performed By: #### 5 7021-8 ####JOLENE Cantu ([id number])[facility] ([facility])[address]80 [place] [address] Immature granulocytes/100 WBC (Bld) 0.4 % Normal 0.0-0.[address] [facility] Comment on above: Result Comment: Aspen ture Granulocyte Count (IG) includes promyelocytes, myelocytes and metamyelocytes but does not include bands. Percent differential counts (%) should be interpreted in the context of the absolute cell counts (cells/UL). Performed By: #### 5 7021-8 ####JOLENE Cantu ([id number])[facility] ([facility])[address] [place] [address] Lymphocytes (Bld) [#/Vol] 2.27 x10*3/uL Normal 1.20-4.[address] [facility] Comment on above: Performed By: #### 5 7021-8 ####JOLENE Cantu ([id number])[facility] ([facility])[address]594 [place] [address] Lymphocytes/100 WBC (Bld) 19.9 % Normal 13.0-44.[address] [facility] Comment on above: Performed By: #### 5 7021-8 ####JOLENE Cantu ([id number])[facility] ([facility])[address]649 [place] [address] MCH (RBC) [Entitic mass] 31.0 pg Normal 26.0-34.[address] [facility] Comment on above: Performed By: #### 5 7021-8 ####JOLENE RONQUILLO L ([id number])[facility] ([facility])[address]286 [place] [address] MCHC (RBC) [Mass/Vol] 34.7 g/dL Normal 32.0-36.0 [facility] Comment on above: Performed By: #### 5 7021-8 ####JOLENE Cantu ([id number])[facility] ([facility])[address]378 [place] [address] MCV (RBC) [Entitic vol] 89 fL Normal 80-[address] [facility] Comment on above: Performed By: #### 5 7021-8 ####JOLENE Cantu ([id number])[facility] ([facility])[address]55 [place] [address] Monocytes (Bld) [#/Vol] 0.77 x10*3/uL Normal 0.10-1.[address] [facility] Comment on above: Performed By: #### 5 7021-8 ####JOLENE Cantu ([id number])[facility] ([facility])[address]309 [place] [address] Monocytes/100 WBC (Bld) 6.8 % Normal 2.0-10.[address] [facility] Comment on above: Performed By: #### 5 7021-8 ####JOLENE Cantu ([id number])[facility] ([facility])[address] [place] [address] Neutrophils (Bld) [#/Vol] 8.01 x10*3/uL High 1.20-7.[address] [facility] Comment on above: Result Comment: Perc ent differential counts (%) should be interpreted in the context of the absolute cell counts (cells/uL). Performed By: #### 5 7021-8 ####JOLENE Cantu ([id number])[facility] ([facility])[address] [place] [address] Neutrophils/100 WBC (Bld) 70.2 % Normal 40.0-80.[address] [facility] Comment on above: Performed By: #### 5 7021-8 ####JOLENE Cantu ([id number])[facility] ([facility])[address]348 [place] [address] Nucleated RBC/100 WBC (Bld) [Ratio] 0.0 /100 WBCs Normal 0.0-0.[address] [facility] Comment on above: Performed By: #### 5 7021-8 ####JOLENE Cantu (68363)[facility] ([facility])[address] [place] [address] Platelets (Bld) [#/Vol] 371 x10*3/uL Normal 150-[address] [facility] Comment on above: Performed By: #### 5 7021-8 ####JOLENE Cantu ([id number])[facility] ([facility])[address]70 [place] [address] RBC (Bld) [#/Vol] 4.39 x10*6/uL Normal 4.00-5.20 [facility] Comment on above: Performed By: #### 5 7021-8 ####JOLENE Cantu (46507)[facility] ([facility])[address]463 [place] [address] WBC (Bld) [#/Vol] 11.4 x10*3/uL High 4.4-11.3 [facility] Comment on above: Performed By: #### 5 7021-8 ####JOLENE Cantu (64451)[facility] ([facility])[address] [place] [address] CBC panel Auto (Bld)on 10-10 Erythrocyte distribution width (RBC) [Ratio] 13.0 % Normal 11.5-14.[address] [facility] Comment on above: Performed By: #### 5 8410-2 ####JOLENE Cantu (11950)[facility] ([facility])[address]61 [place] [address] Hematocrit (Bld) [Volume fraction] 38.2 % Normal 36.0-46.[address] [facility] Comment on above: Performed By: #### 5 8410-2 ####JOLENE Cantu (31759)[facility] ([facility])[address]69 [place] [address] Hemoglobin (Bld) [Mass/Vol] 12.5 g/dL Normal 12.0-16.[address] [facility] Comment on above: Performed By: #### 5 8410-2 ####JOLENE Cantu (85785)[facility] ([facility])[address] [place] [address] MCH (RBC) [Entitic mass] 30.3 pg Normal 26.0-34.[address] [facility] Comment on above: Performed By: #### 5 8410-2 ####JOLENE Cantu (95834)[facility] ([facility])[address] [place] [address] MCHC (RBC) [Mass/Vol] 32.7 g/dL Normal 32.0-36.0 [facility] Comment on above: Performed By: #### 5 8410-2 ####JOLENE Cantu ([id number])[facility] ([facility])[address]109 [place] [address] MCV (RBC) [Entitic vol] 93 fL Normal 80-[address] [facility] Comment on above: Performed By: #### 5 8410-2 ####JOLENE Cantu (38432)[facility] ([facility])[address]755 [place] [address] Nucleated RBC/100 WBC (Bld) [Ratio] 0.0 /100 WBCs Normal 0.0-0.[address] [facility] Comment on above: Performed By: #### 5 8410-2 ####JOLENE Cantu ([id number])[facility] ([facility])[address]36 [place] [address] Platelets (Bld) [#/Vol] 353 x10*3/uL Normal 150-[address] [facility] Comment on above: Performed By: #### 5 8410-2 ####JOLENE Cantu ([id number])[facility] ([facility])[address]80 [place] [address] RBC (Bld) [#/Vol] 4.13 x10*6/uL Normal 4.00-5.20 [facility] Comment on above: Performed By: #### 5 8410-2 ####JOLENE Cantu ([id number])[facility] ([facility])[address]09 [place] [address] WBC (Bld) [#/Vol] 10.4 x10*3/uL Normal 4.4-11.3 [facility] Comment on above: Performed By: #### 5 8410-2 ####JOLENE Cantu ([id number])[facility] ([facility])[address] [place] [address] Coagulation surface inducedo n 10-11-2023 aPTT Coag (PPP) [Time] 33 s Normal 27-38 [facility] Comment on above: Order Comment: The A PTT is no longer used for monitoring Unfractionated Heparin Therapy. For monitoring Heparin Therapy, use the Heparin Assay. Performed By: #### 1 4979-9 ####JOLENE Cantu (43363)[facility] ([facility])[address] [place] [address] Coagulation tissue factor in ducedon 10-11-2023 PT Coag (PPP) [Time] 10.4 s Normal 9.8-12.8 [facility] Comment on above: Performed By: #### 5 902-2 ####JOLENE Cantu ([id number])[facility] ([facility])[address] [place] [address] Comprehensive metabolic 2000 panelon 10-11-2023 Albumin BCP dye [Mass/Vol] 4.1 g/dL Normal 3.4-5.[address] [facility] Comment on above: Performed By: #### 2 4323-8 ####JOLENE Cantu (38404)[facility] ([facility])[address] [place] [address] ALP [Catalytic activity/Vol] 88 U/L Normal 33-[address] [facility] Comment on above: Performed By: #### 2 4323-8 ####JOLENE Cantu ([id number])[facility] ([facility])[address] [place] [address] ALT With P-5'-P [Catalytic activity/Vol] 15 U/L Normal 7-[address] [facility] Comment on above: Result Comment: Katia ents treated with Sulfasalazine may generate falsely decreased results for ALT. Performed By: #### 2 4323-8 ####JOLENE Cantu (71801)[facility] ([facility])[address] [place] [address] Anion gap [Moles/Vol] 12 mmol/L Normal 10-20 [facility] Comment on above: Performed By: #### 2 4323-8 ####JOLENE Cantu ([id number])[facility] ([facility])[address] [place] [address] AST With P-5'-P [Catalytic activity/Vol] 16 U/L Normal 9-[address] [facility] Comment on above: Performed By: #### 2 4323-8 ####JOLENE Cantu (04590)[facility] ([facility])[address]896 [place] [address] Bilirubin [Mass/Vol] 0.3 mg/dL Normal 0.0-1.2 [facility] Comment on above: Performed By: #### 2 4323-8 ####JOLENE Cantu (47071)[facility] ([facility])[address]62 [place] [address] Calcium [Mass/Vol] 8.5 mg/dL Low 8.6-10.6 [facility] Comment on above: Performed By: #### 2 4323-8 ####JOLENE Cantu (47180)[facility] ([facility])[address]389 [place] [address] Chloride [Moles/Vol] 102 mmol/L Normal 98-107 [facility] Comment on above: Performed By: #### 2 4323-8 ####JOLENE Cantu ([id number])[facility] ([facility])[address]43 [place] [address] CO2 [Moles/Vol] 27 mmol/L Normal 21-32 [facility] Comment on above: Performed By: #### 2 4323-8 ####JOLENE Cantu (91976)[facility] ([facility])[address]150 [place] [address] Creatinine [Mass/Vol] 0.77 mg/dL Normal 0.50-1.05 [facility] Comment on above: Performed By: #### 2 4323-8 ####JOLENE Cantu (59262)[facility] ([facility])[address]0003 [place] [address] GFR/1.73 sq M.predicted MDRD (S/P/Bld) [Vol rate/Area] mL/min/{1.73_m2} Normal >[address] [facility] Comment on above: Result Comment: Calc ulations of estimated GFR are performed using the 2020 CKD-EPI Study Refit equation without the race variable for the IDMS-Traceable creatinine methods.https://jasn.asnjournals.org/content//A SN.8843205720 Performed By: #### 2 4323-8 ####JOLENE Cantu (52364)[facility] ([facility])[address]65 [place] [address] Glucose [Mass/Vol] 85 mg/dL Normal 74-99 [facility] Comment on above: Performed By: #### 2 4323-8 ####JOLENE RONQUILLO L (41472)[facility] ([facility])[address]153 [place] [address] Potassium [Moles/Vol] 3.8 mmol/L Normal 3.5-5.3 [facility] Comment on above: Performed By: #### 2 4323-8 ####JOLENE RONQUILLO L (94277)[facility] ([facility])[address]607 [place] [address] Protein [Mass/Vol] 7.5 g/dL Normal 6.4-8.2 [facility] Comment on above: Performed By: #### 2 4323-8 ####JOLENE RONQUILLO L (36016)[facility] ([facility])[address]484 [place] [address] Sodium [Moles/Vol] 137 mmol/L Normal 136-145 [facility] Comment on above: Performed By: #### 2 4323-8 ####JOLENE Cantu ([id number])[facility] ([facility])[address] [place] [address] Urea nitrogen [Mass/Vol] 18 mg/dL Normal 6-[address] [facility] Comment on above: Performed By: #### 2 4323-8 ####JOLENE Cantu (23291)[facility] ([facility])[address] [place] [address] ESR Westergren method (Bld) [Velocity]on 10-11-2023 ESR (Bld) [Velocity] 26 mm/h High 0-20 [facility] Comment on above: Performed By: #### 4 537-7 ####JOLENE Cantu (58581)[facility] ([facility])[address] [place] [address] Magnesiumon 10-11-2023 Magnesium [Mass/Vol] 1.99 mg/dL Normal 1.60-2.40 [facility] Comment on above: Performed By: #### 1 9123-9 ####JOLENE Cantu (34859)[facility] ([facility])[address] [place] [address] PT Coag (PPP) [Time]on 10-10 INR Coag (PPP) [Relative time] 0.9 Normal 0.9-1.[address] [facility] Comment on above: Performed By: #### 5 902-2 ####JOLENE Cantu (84206)[facility] ([facility])[address] [place] [address] PT and aPTT panel Coag (PPP) on 10-11-2023 aPTT Coag (PPP) [Time] 32 s Normal 27-38 [facility] Comment on above: Order Comment: Tube must be full. Deliver to lab within 4 hoursThe APTT is no longer used for monitoring Unfractionated Heparin Therapy. For monitoring Heparin Therapy, use the Heparin Assay. Performed By: #### 3 4529-8 ####JOLENE Cantu ([id number])[facility] ([facility])[address]508 [place] [address] INR Coag (PPP) [Relative time] 1.0 Normal 0.9-1.[address] [facility] Comment on above: Order Comment: Tube must be full. Deliver to lab within 4 hoursThe APTT is no longer used for monitoring Unfractionated Heparin Therapy. For monitoring Heparin Therapy, use the Heparin Assay. Performed By: #### 3 4529-8 ####JOLENE Cantu ([id number])[facility] ([facility])[address]30 [place] [address] PT Coag (PPP) [Time] 11.3 s Normal 9.8-12.8 [facility] Comment on above: Order Comment: Tube must be full. Deliver to lab within 4 hoursThe APTT is no longer used for monitoring Unfractionated Heparin Therapy. For monitoring Heparin Therapy, use the Heparin Assay. Performed By: #### 3 4529-8 ####JOLENE Cantu ([id number])[facility] ([facility])[address] [place] [address] Coding Summaryon 10-07-2023 Coding Summary HTMLBase 64 BorsecmgEWm0xUk+PGhlYWQ +VG9MPWAsV57reBAgvI9tS8 NMTElOSywgQVBQTElOSyIgb rTpLN5ihRGaTZCt IC8+KB2xNBXaCeczeHRty7V 3mSK0D39wno5jAEvwqFX7HX SrZrIlgxbxo6ngcPc2PCcuI mluOyBt DSSrpV10UYQ5xZ76Xf31aUE pqZVyv4ssgCk7YbByFVKpXJ L3pLudHZifb5LqVHWuS36eq YUif2C9 GEOnrTrtaCPmSoOapYX9iY8 tQYouyguim8zfzwuyGfl4nz 51nKWuj0U8uAO7C9EagoH3O GJvbGQg GkjyeXLWxV7gdygyi1uamtp iRfSeQOFtCAx4JAp5ANPglW ofCnHjVA60YDM7LKWfdjDzA 2FsLWFs sGymEbW0s9Y2Jm0OU0TIHtw sM0PVYYEHUIumqHQ+PC90cj 57Z9FsBlilByb7IHBjMEV4x KB0vR1q MYVlSDuzd6A9wTI2R8PiayI pny8dg9chQXHgXAexI76ixW Utl9V0AHJiaDS0IVGlfWulQ iBzaG93 Oyc+HTPkiVlfy2HpGrljd9l gk1rtmNk0IwkuOJWlibGodA hsJLA7c0QjQf5oIBNenFC9p EO5mK6a IdOiRzV7POtmD588YgSgqXY rEkauY35eO2AmxAK+PHRyPj r4DWTgeFdcQD1eX2UpAYZuf mctbGVm xTwiVI7wYLNyhbjnPCOxpN8 xJNWuL1u5FgReGeL9TBimW1 VuVXKrrkkwJm46vW0wIqNtO wM3PNso O6TxmzO6UYTknINjBFimLAY 4X40rp8K7GJIcFVRiRXY1kE A9nT8quQhpfboxaZDggVczw mVydGlj MVboCImvQ812ZKFhfEfjYsW vZGluZyBEYXRlOiAgMDcvMT UvMjAyNDwvdGQ+WARaTTA0p WxlPSAn zPYsHAsrSh3hyOewsMofBA2 fDSIowqogCPBwyR5ePCShtQ BdeCweQN4xPDQcbzpvu679F iAxMHB0 LIAroBMaA6RypM3gQrNaOWB gDLNeH5GogXZuYDlyQ213AQ nuVjY4MHZgovUiN2SfXHXvd WduOiB0 j0V1Lq3Jp8OkqjuqG1XobZF vPmIwEqluMZd6X1TfTbbudW I+PV62FISmXM80IWz2CIF6v WxlPSdi XBRrK5KydK1rVpZwFSXnKXY kOyc+PHRhYmxlIHdpZHRoPS buZTBgDtOgdVraYR3oMu4bE GVyLWNv vIvxzUGaEaEvv2crJJEnYYy xKP8yuJxnS8PxqHY6DNAxe2 n7Hn86D74tJ9CrzZD+PGNvb SP6gFL2 kW5aAcDqFvJ1OHxdV341ZvJ hpLEwGmyay0hwu1twbJl7Ce H0DONwnjFpuRzrWBA7m9HdH p02R04k IHdpZHRoPSIxNSUiIHZhbGl our0lqL0oBs7+CMIuiFW7bF G7tI6gWkXzVhD9YPmjD856E nRvcCIv Dtwhf0vta3kxkFk3XtEjXWG djuUeoOuqPLR1t3ZpLa37K2 GmyHxec0GaLzn7kx26iWEmv 6P2eGG1 H7OjXOGdpiddvEPowBosDY3 uQPJvpowvMIVtgD7nWWIyN3 a8KcRuSzK9SZwhV3MideM7V GJvbGQg WCQrqGFViX7wwfoyx9qrnko uXwUaAMOpAIi6HCe2GVOtnS skVkRfIHL5JwA8RJT4eVJhk J4bjSgd jjehjQ0yVlu+FAF3vVOngLA BHN9aMczwdAZ+BAAnZVE3mC oxSNshIWUkbW4yGNIsP6z3U iAwLjA1 LIcaU3IvtuY5CKQxwFXfDXI crSSTlR8fzpxar7udksgnBn WbOYSuNVc5GCd6JORspJzoF iBsZWZ0 LaP3TOH7hQNyjC9jaIrvzgr apR9yVlg+RgsnhGtfTLR3IS n7S6WuHkq8QNYzlEqhYA3kb GFkZGlu Ag2hqUfmcBrgLE0pFDOueiv yz428VhWmz7mqGNZcdXOpFR mlOMQ5B12zu3T3WHJrVVFaG QE3tSS8 rK7azUwpeftpvOYeoFcjpmW hiVteVUjoHZqbQ270TDTczO zkCwZvHHk1X3UhHyt7UMToh JylJB8z jIFsYWmfGm1tkOvzwUpxCI0 aFNPsndyca948QdVcu7upTW OvjUZyETivWUR1B00xs9N5C CMwMDAw RWI3dRK2aY9thZjqwozkwOH mdDsgdmVydGljYWwtYWxpZ2 72BFQktWcsNkOmpJt7B4AwL te3MXEr xZmvUU8leQBiGTzgWe0dlAo ddVybVB1iZOAcknaaa394Ut Gzn2bpIHWzqLHkHZwoGON4F 50he6G5 GTXeRYAcJJY0fNL9pB7hmLx nbjogbGVmdDsgdmVydGljYW gnUThwI532QFVukIqjJeUdb GllbnQg HNoqYSb7K9BjKvlgdYD+PC9 4QSYfUC68bPAltLNpo5clbX u5HpGpTPIzIGG3uXmiHXdcb 3JkZXIt E77naUSec6F2ZXHdqEllmNR gSePlzYM7iO4nKGbsqlnnz5 zbbxalXdffr4fyvr31aU98X 29sIHdp ZHRoPSIzMCUiIHZhbGlnbj0 jjG1yNo2+AKSbnAH4nSC8vN 6mEONdZmY1AMjaT905PsLhw CIvPjxj i4fxo6pvdFd6SkQ9CJWtxuA jfBmnXIH8u7JeBl34E21cUB dpZHRoPSIyMCUiIHZhbGlnb j6jnX5s Ii8+MESzqTN7zRT9aA4zZvA pEbQ1NWhpL063DzAmeZDzNi lvV65gV5BlkTD+UCXfHdp2S CBzdHls HL4eoSWnIJclCd5bVCA7XiW tYoVlKIsyI4JjUUYvzphrkl ubmUV6FHUoQYZqfD56Su0zg DogMTBw kRWXwJ6vjuwyf1wvnbadLaM bKGPbWLu9KDq8PIIiyIsdKd EzCUR7YaB9AMA1aAMkvI6no Glnbjog dH2fY7ReJUIyyvbgSa58bH5 iFlJmLfP6NHlnYir+TElFQi mfDUQRKHPRWVLEVglAZbN9O 9KlDyg5 UPAqjMhzRA5tiNBiDBbdQa3 ovFxtkFtnWB3dUFFvekjcGL RtnW2dYUDquCEnyHaqWR4vK TBpbjtm v888UyCyWRJ6UKDlpIXxE2F obZ0zYqXaNBIkEIRdY5IxjR SkTQumK889JLqbFkB1DIUus yFaQ4Xi ALNsqEqgGwM8s0T1Se3mCe2 uVY9kUSj1CU98CR88bOEks2 N8jRP5V1FrGFUmydllhnull PM6BHWt UENlkL60uSMtPDosEx1oi5X 9h325WJQxXGGqaE99Le4sdZ muCJHqdSYCkZ1htndpe9gjf jogIzAw EXFyNRa2APj1OVRopRtzPaM uXES3VyC5HXS9hBTymF7wbI uwsllhtT1qLkh+NDYgWWVhc wJ2U5Oi Rwm0LGLmxJicXD2roGTtKMo sVy8duSzhdUgsKM1vXIYzfl rfQXAuyT7jIIFpkIJfeWzbO U8pEYUz gzeqt949WvMoXZT4FOYjuML zX0KyeU0cCpZxAOZcSEYqM4 ImoSMqLMzqK819IUkfGcS0S HZlcnRp O3UvOZOqgXklJmF2k0N0Tu7 NZT4UCJA0M3IzTzm2IKVjlF dsIG9ihCPyYLhnAw3lmSibd KzkVY7e MFVqmucmCPIwyG2lSUZmgVL vxKxuYA5dUWJkososf780It QhHCL2INKgvMDzZ2YmtH2kS iAjMDAw WLYiS9BhqSXrFZtkG567XYe zMrN1VSEmaeWxF4IbERXonN rwZwW8p3U6Lu8OoNExY2ZnQ 4a9Y4Gt PjwvdHI+BG79QIOlVF26vAH pwTWpg4rjxQb7FeLaJQOuYV S7jAsfLOzuy7UvUOAhC40ls GFml3B9 XABhuTcouBBwTvKhxJC2qV4 hEYupdqqcp0dmzvlhVodnf7 uyxj86tP41H22dCXnbVNAhP SIzMCUi IYGviImwfj4gtO6zOu0+PGN trFH5tHB3eF6pGxYnXnJ8YH wpF883IqYfuKYrHnxja7dwg 2nqzVd0 OzQvDGXiwzZlzJlvZKH7p4U nOx53J24eBRnnPRDvTNCoXG KrBQCeyXtjmk8ccK5rPt0+P I0fl8ut ni84tC56qIC+ADHqJFR5iPy xKHyvAPCtcL6pOIzpAgM8OF MmEsXedL77aOKcYNdqAg1cj WdodDog HR4gNHUsygysy704IcGco1p dPODbfOUcWChxAPZ7H76oq9 H4WKGpQKYvGYM8lDV3fD9mj Glnbjog bGVmdDsgdmVydGljYWwtYWx pU588DIKhwHkqFcChuPTlC5 ynhoQHTG1hEcnwiYP+PHRkI DZ2kDpt SAaoUJTmwP5mDJIfP7l6LvF xJwC1VPwcT2NfknQ6PMLprT KiJXGjsJZBeS0srufpa2jri jogIzAw FPKlQXk7OGo2LJEstXyvIiP hGLF8PuL2MRN2cTOjfC9fpX wzjmvbdZ1kNho+RklOOjwvd GQ+PHRk NQA9mCxvHFchJHDjnP9zULL mT8q9QdTnRbW3OBnzX2Domp H3COCxaUEtQNRftDGKiF7hu zdwa6hr rdprGkByVHPvYLi1JYp9TOF adKtdExLhHHG6XiD6QTG7rB PgqD1jyOxbhyqxfB7xXex+T VJOOjwv dGQ+EANgWSM3cZwlQPpeBBI aaK1jEGYuR6g5BhFrFqT3EZ wsT7ArfjT4QDBrgMPyLWNrd YYKiN4m aboyh1ivcjjiJuAdPUIfMEz 7LPm2OCJtfXshLyQmDKQ7Pe C5PCP7rDQsoL2fgSryaczke G9wOyc+ YYR0VQZ1ET15YZ12L7MlLpb vdGFibGU+PHRhYmxlIHdpZH AeZBinTYGsXzDfdOgnSK6wG m6rBNIw LWN (more content not included)... Normal [facility] Activated partial thrombopla stin time (aPTT) in platelet poor plasma by coagulation aOrdered By: Abby Jensen on 10-05-2023 aPTT Coag (PPP) [Time] 33.6 s 25.1-36.5 [facility] Comment on above: A hematocrit value g reater than 55% may lead to inaccurate results in coagulation testing. Patients having hematocrit values >55% require a special collection tube for coagulation studies. Please contact the laboratory at [phone] for redraw instructions. Automated basophil %Ordered By: Abby Jensen on 10-05-2023 Basophils/100 WBC (Bld) 0.4 % Normal . [facility] Comment on above: Performed By: #### U HCG, ADDONUAPLUS #### [address] Automated basophil countOrde red By: Abby Jensen on 10-05-2023 Basophils (Bld) [#/Vol] 0.0 10*3/uL Normal 0.0-0.2 [facility] Comment on above: Performed By: #### U HCG, ADDONUAPLUS #### [address] Automated blood monocyte cou ntOrdered By: Abby Jensen on 10-05-2023 Monocytes (Bld) [#/Vol] 0.7 10*3/uL Normal 0.0-0.8 [facility] Comment on above: Performed By: #### U HCG, ADDONUAPLUS #### [address] Automated eosinophil %Ordere d By: Abby Jensen on 10-05-2023 Eosinophils/100 WBC (Bld) 1.0 % Normal . [facility] Comment on above: Performed By: #### U HCG, ADDONUAPLUS #### [address] Automated eosinophil countOr dered By: Abby Jensen on 10-05-2023 Eosinophils (Bld) [#/Vol] 0.1 10*3/uL Normal 0.0-0.45 [facility] Comment on above: Performed By: #### U HCG, ADDONUAPLUS #### [address] Automated monocyte %Ordered By: Abby Jensen on 10-05-2023 Monocytes/100 WBC (Bld) 6.1 % Normal . [facility] Comment on above: Performed By: #### U HCG, ADDONUAPLUS #### [address] Automated neutrophil %Ordere d By: Abby Jensen on 10-05-2023 Neutrophils/100 WBC (Bld) 75.7 % Normal . [facility] Comment on above: Performed By: #### U HCG, ADDONUAPLUS #### [address] BNP ser/plasOrdered By: Rick Jensen on 10-05-2023 Natriuretic peptide B (Bld) [Mass/Vol] 70.0 pg/mL Normal 5-100 [facility] Comment on above: Result Comment: PERF ORMED BY: [place] [address] PATHOLOGIST TUBE 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 JASON WILSON M.D. Performed By: #### U HCG, ADDONUAPLUS #### [address] Bacteria identifiedon 2023 Bacteria identified Cx Nom (Bld) Normal [facility] Comment on above: Performed By: #### 6 00-7 ####JOLENE Cantu ([id number])[facility] ([facility])[address] [place] [address] Bacterial blood cultureOrder ed By: Abby Jensen on 10-05-2023 Bacteria identified Cx Nom (Bld) NO GROWTH 5 DAYS [facility] Basic Metabolic Panelon 09-22 Creatinine Clr Calc Pharmacy 116.62 Normal [facility] Comment on above: Performed By: #### U HCG, ADDONUAPLUS #### [facility] [address] [place] [address] [place] GFR/1.73 sq M.predicted MDRD (S/P/Bld) [Vol rate/Area] mL/min/{1.73_m2} Normal [facility] Comment on above: Performed By: #### U HCG, ADDONUAPLUS #### [address] Bilirubin Test strip Ql (U)O rdered By: Abby Jensen on 10-05-2023 Bilirubin Ql (U) Negative Negative [facility] Blood Cultureon 10-05-2023 Bacteria identified Cx Nom (Bld) NO GROWTH 5 DAYS PERFORMED BY: [facility] [address] [place] [address] PATHOLOGIST TUBE 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 JASON WILSON M.D. Normal [facility] Comment on above: Performed By: #### V BG #### Point of Care testing , Blood type and Indirect anti body screen panel (Bld)on 10-05-2023 ABO group Nom (Bld) O [facility] Comment on above: Performed By: #### 3 4532-2 ####JOLENE Cantu ([id number])[facility] ([facility])[address] [place] [address] Blood group antibody screen Ql Negative [facility] Comment on above: Performed By: #### 3 4532-2 ####JOLENE Cantu ([id number])[facility] ([facility])[address] [place] [address] D Ag Ql (Bld) Positive [facility] Comment on above: Performed By: #### 3 4532-2 ####JOLENE Cantu ([id number])[facility] ([facility])[address] [place] [address] C reactive proteinon 024 CRP [Mass/Vol] 0.98 mg/dL Normal <1.[address] [facility] Comment on above: Performed By: #### 1 988-5 ####JOLENE Cantu ([id number])[facility] ([facility])[address] [place] [address] C reactive protein [Mass/vol ume] in Serum or PlasmaOrdered By: Abby Jensen on 10-05-2023 CRP [Mass/Vol] 1.0 mg/dL High 0.0-0.5 [facility] C-Reactive Proteinon 024 C-Reactive Protein 1.0 mg/dL High 0.0-0.5 [facility] Comment on above: Result Comment: PERF ORMED BY: [facility] [address] [address] PATHOLOGIST TUBE 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 JASON WILSON M.D. Performed By: #### U KIMBER OAKLEYPLUS #### [facility] [address] CBC panel Auto (Bld)on 10-04 Erythrocyte distribution width (RBC) [Ratio] 12.4 % Normal 11.5-14.[address] [facility] Comment on above: Performed By: #### 5 8410-2 ####JOLENE Cantu ([id number])[facility] ([facility])[id number] [place] [address] Hematocrit (Bld) [Volume fraction] 36.3 % Normal 36.0-46.[address] [facility] Comment on above: Performed By: #### 5 8410-2 ####JOLENE Cantu ([id number])[facility] ([facility])[address] [place] [address] Hemoglobin (Bld) [Mass/Vol] 12.5 g/dL Normal 12.0-16.[address] [facility] Comment on above: Performed By: #### 5 8410-2 ####JOLENE Cantu ([id number])[facility] ([facility])[id number] [place] [address] MCH (RBC) [Entitic mass] 30.4 pg Normal 26.0-34.[address] [facility] Comment on above: Performed By: #### 5 8410-2 ####JOLENE Cantu ([id number])[facility] ([facility])[id number] [place] [address] MCHC (RBC) [Mass/Vol] 34.4 g/dL Normal 32.0-36.0 [facility] Comment on above: Performed By: #### 5 8410-2 ####JOLENE Cantu ([id number])[facility] ([facility])[id number] [place] [address] MCV (RBC) [Entitic vol] 88 fL Normal 80-[address] [facility] Comment on above: Performed By: #### 5 8410-2 ####JOLENE CASTROER L ([id number])[facility] ([facility])[address] [place] [address] Nucleated RBC/100 WBC (Bld) [Ratio] 0.0 /100 WBCs Normal 0.0-0.[address] [facility] Comment on above: Performed By: #### 5 8410-2 ####JOLENE WELSHMOTZER L ([id number])[facility] ([facility])[address] [place] [address] Platelets (Bld) [#/Vol] 422 x10*3/uL Normal 150-[address] [facility] Comment on above: Performed By: #### 5 8410-2 ####JOLENE RONQUILLO L ([id number])[facility] ([facility])[id number] [place] [address] RBC (Bld) [#/Vol] 4.11 x10*6/uL Normal 4.00-5.20 [facility] Comment on above: Performed By: #### 5 8410-2 ####JOLENE NELSONTZER L ([id number])[facility] ([facility])[id number] [place] [address] WBC (Bld) [#/Vol] 10.1 x10*3/uL Normal 4.4-11.3 [facility] Comment on above: Performed By: #### 5 8410-2 ####JOLENE NELSONTZER L ([id number])[facility] ([facility])[address] [place] [address] abdomen pelvis w [facility] CT abdomen pelvis w [facility] [place] [address] CT Scan Report Signed Patient: Jerad Tracy MR#: [id number] 49 : 1975 Acct:[id number] Age/Sex: 48 / F ADM Date: 10/05/23 Loc: ER Room: Type: [facility] ER Attending Dr: Copies to: Abby Jensen [...] No acute intra-abdominal pathology. Impression dictated by: Dinora Ma M.D.10/05/2023 6:57 PM Dictation Location: [place] [address] Transcribed By: [facility] 10/05/231856 Dictated By: Dinora Ma II, MD 10/05/231848 Signed By: 10/05/231856 Normal [facility] Calcium [Mass/volume] in Ser um or PlasmaOrdered By: Abby Jensen on 10-05-2023 Calcium [Mass/Vol] 8.8 mg/dL Normal 8.6-10.3 [facility] Comment on above: Performed By: #### U HCG, ADDONUAPLUS #### [facility] [address] Carbon dioxide, total [Moles /volume] in Serum or PlasmaOrdered By: Abby Jensen on 10-05-2023 CO2 [Moles/Vol] 26.0 mmol/L Normal 21.0-31.0 [facility] Comment on above: Performed By: #### U HCG, ADDONUAPLUS #### [facility] [address] [place] [address] [place] Chloride [Moles/volume] in S saw or PlasmaOrdered By: Abby Jensen on 10-05-2023 Chloride [Moles/Vol] 105 mmol/L Normal 98-107 [facility] Comment on above: Performed By: #### U HCG, ADDONUAPLUS #### [facility] [address] [place] [address] [place] Color of Urine by AutoOrdere d By: Abby Jensen on 10-05-2023 Color (U) Light-yellow Normal Yellow [facility] Comment on above: Order Comment: Name Collection Type:: Clean-Voided Midstream Performed By: #### V BG #### Point of Care testing , Complete Blood Count Auto Di ffon 10-05-2023 Mean Corpuscular HGB Conc 33.9 g/dL Normal 32.0-35.0 [facility] Comment on above: Performed By: #### U HCG, ADDONUAPLUS #### [facility] [address] [place], [place] [address] [place] Monocytes/100 WBC (Bld) 16.83 % Normal 0.00-20.00 [facility] Comment on above: Performed By: #### U HCG, ADDONUAPLUS #### [facility] [address] NRBC% 0.1 /100{WBC} Normal 0-0.5 [facility] Comment on above: Performed By: #### U HCG, ADDONUAPLUS #### [facility] [address] [place] [address] [place] Creatine kinase [Enzymatic a ctivity/volume] in Serum or PlasmaOrdered By: Abby Jensen on 10-05-2023 CK [Catalytic activity/Vol] 49 U/L Normal 30-223 [facility] Comment on above: Performed By: #### U HCG, ADDONUAPLUS #### [address] Creatinine [Mass/volume] in Serum or PlasmaOrdered By: Abby Jensen on 10-05-2023 Creatinine [Mass/Vol] 0.75 mg/dL Normal 0.60-1.20 [facility] Comment on above: Performed By: #### U HCG, ADDONUAPLUS #### [address] ECG 12 lead ECGon 10-05-2023 ECG 12 lead ECG [facility] [place] [address] Electrocardiograph Report Signed Patient: Jerad Tracy MR#: [id number] 49 : 1975 Acct:[id number] Age/Sex: 48 / F ADM Date: 10/05/23 Loc: ER Room: Type: [facility] ER Attending Dr: Ordering Provider: Abby Jensen [...] was found Confirmed by Abby Jensen MD ([id number]) on 10/05/2023 10:15:52 PM Referred By: Electronically Signed By: Abby Jensen MD Transcribed By: MUS Signed By Abby Jensen MD 09/22 [facility] ED Clinical Summaryon 2023 ED Clinical Summary [facility] Emergency Department [address] [place] [address] ED Clinical Summary PERSON INFORMATION Name: JERAD TRACY Age: 48 Years Sex: FEMALE : 1975 MRN: Acct#: Visit Reason: Post surgical problem; SKIN PROBLEM-BACK Arrival: 10/05/2023 11:20:01 Discharge: 10/05/2023 12:04:00 LOS: 000 00:44 Check In: 10/05/2023 11:20:01 Checkout:10/05/2023 12:04:00 Address: [address] [place] [address] PCP: Cheyanne Mckeon PROVIDER INFORMATION Provider Role Assigned Unassigned Susu Lamar PA-C ED PA 10/05/2023 11:21:33 Niki Reyes PALM GATHERER Nurse 10/05/2023 11:33:03 VITALS INFORMATION Vital Sign Triage Latest Temperature Tympanic Temperature Temporal Artery Pulse Rate O2 Sat 97 % 97 % Respiratory Rate 16 br/min 16 br/min Blood Pressure /65 mmHg /65 mmHg MEDICAL INFORMATION Medications Given: Allergy Information: HYDROcodone; penicillin PHYSICIAN DOCUMENTATION DISCHARGE INFORMATION: Discharge Disposition: Home Discharge Location: Home PATIENT EDUCATION INFORMATION Instructions: Wound Dehiscence, [id number] Follow-Up: With: Address: When: [facility] [address] [place] [phone] Within 3 to 5 days Comments: Call for follow up appointment With: Address: When: Cheyanne Mckeon [address] [place] [id number] Within 3 to 5 days Comments: keep appt with surgeon in 3 days DIAGNOSIS: 1:Dehiscence of incision Patient Understands: Yes - Patient/family/caregive r verbalizes understanding of instructions given Comment: Normal [facility] ED Note-Physicianon 10-05-19 24 ED Note-Physician Normal [facility] Comment on above: Result Comment: Elec tronically Signed By: Landon Tidwell PA-C\.br\Date and Time Signed: 10/04/23 17:18 EDT\.br\Electronically Co-Signed By: Jorge Mcintosh DO\.br\Date and Time Co-Signed: 10/05/23 07:28 EDT ED Patient Summaryon 024 ED Patient Summary [facility] - Emergency Department [address] [id number] PATIENT DISCHARGE INSTRUCTIONS Patient Information Name: JERAD TRACY Age: 48 Years Date of : 1975 Reason For Visit: Post surgical problem; SKIN PROBLEM-BACK Arrival Time: 10/05/2023 11:20:01 Primary Care Physician: Cheyanne Mckeon Attending Physician: Raj Ayers MD Comment: Visit Diagnosis: Diagnoses This Visit Dehiscence of incision (T81.31XA) Post surgical problem ([id number]) The Pharmacy at [facility] is open Saturday through Saturday from [...] alcohol and/or drug addiction problems; contact the [facility] 15/10 Crisis Hotline -Text 4HIFO hd [phone]. If you received any narcotics, sedation, or [...] sign any legal documents With: Address: When: [facility] [address] [place], [place] [phone] Within 3 to 5 days Comments: Call for follow up appointment With: Address: When: Ralph HORVATHPilyCheyanne Arturo [facility] [place] [address] [place] [address] Within 3 to 5 days Comments: keep appt with surgeon in 3 days Medication Information: The exam and treatment you received today in the [facility] Emergency Department were for an urgent problem and are not intended as complete care. It is important for you to follow up with a doctor, nurse practitioner, or physician?s insurance administrative assistant for ongoing care. If your symptoms [...] so we can reach you if necessary. [facility] Emergency Department has provided you with a complete list of medications post discharge. 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 Any specific questions regarding your chronic medications and dosages should be discussed with your primary care physician(s) and/or pharmacist. New Medications [facility] [address] [place], [place] [id number], [phone] doxycycline (doxycycline hyclate 100 mg oral capsule) [...] causes? C (more content not included)... Normal [facility] ESR Westergren method (Bld) [Velocity]on 10-05-2023 ESR (Bld) [Velocity] 35 mm/h High 0-20 [facility] Comment on above: Performed By: #### 4 537-7 ####JOLENE Cantu ([id number])[facility] ([facility])[id number] [place] [address] Erythrocyte Sedimentation Ra karen 10-05-2023 ESR (Bld) [Velocity] 58 mm/h High 0-19 [facility] Comment on above: Result Comment: PERF ORMED BY: [place] [address] PATHOLOGIST TUBE 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 JASON WILSON M.D. Performed By: #### U HCG, ADDONCHUY #### [address] Erythrocyte distribution wid th [Ratio] by Automated countOrdered By: Abby Jensen on 10-05-2023 Erythrocyte distribution width (RBC) [Ratio] 13.2 % Normal 11.9-15.3 [facility] Comment on above: Performed By: #### U HCG, ADDONUAPLUS #### [facility] [address] Erythrocyte sedimentation ra te by Photometric methodOrdered By: Abby Jensen on 10-05-2023 ESR Photometric method (Bld) [Velocity] 58 mm/hr High 0-19 [facility] Erythrocytes [#/volume] in B lood by Automated countOrdered By: Abby Jensen on 10-05-2023 RBC (Bld) [#/Vol] 4.32 10*6/uL Normal 3.60-5.00 [facility] Comment on above: Performed By: #### U HCG, ADDONUAPLUS #### [facility] [address] Glucose [Mass/volume] in Ser um or PlasmaOrdered By: Abby Jensen on 10-05-2023 Glucose [Mass/Vol] 95 mg/dL Normal 70-100 [facility] Comment on above: ADA recommended refe rence rangeRandom Glucose Reference Range is dependent on time and content of last meal. Glucose of more than 200 mg/dL in a nonstressed, ambulatory subject supports the diagnosis of Diabetes Mellitus. Result Comment: [place] om Glucose Reference Range is dependent on time and content of last meal. Glucose of more than 200 mg/dL in a nonstressed, ambulatory subject supports the diagnosis of Diabetes Mellitus. ADA recommended reference range Performed By: #### U HCG, ADDONUAPLUS #### [facility] [address] [place] [address] [place] Glucose [Mass/volume] in Uri ne by Test stripOrdered By: Abby Jensen on 10-05-2023 Glucose Test strip (U) [Mass/Vol] Normal mg/dL Normal [facility] Hematocrit [Volume Fraction] of Blood by Automated countOrdered By: Abby Jensen on 10-05-2023 Hematocrit (Bld) [Volume fraction] 40.4 % Normal 34.0-46.4 [facility] Comment on above: Performed By: #### U HCG, ADDONUAPLUS #### [facility] [address] Hemoglobin Test strip Ql (U) Ordered By: Abby Jensen on 10-05-2023 Hemoglobin Ql (U) Negative Negative [facility] Hemoglobin [Mass/volume] in BloodOrdered By: Abby Jensen on 10-05-2023 Hemoglobin (Bld) [Mass/Vol] 13.7 g/dL Normal 11.8-15.4 [facility] Comment on above: Performed By: #### U HCG, ADDONUAPLUS #### [facility] [address] [place] [id number] [facility] INR in Platelet poor plasma by Coagulation assayOrdered By: Abby Jensne on 10-05-2023 INR Coag (PPP) [Relative time] 1.0 {INR} Normal [facility] Comment on above: INR Therapeutic Rang e [...] valves: 3 - 4.5 Performed By: #### U HCG, ADDONUAPLUS #### [facility] [address] [place], [place] [address] [facility] Ketones [Presence] in Urine by Test stripOrdered By: Abby Jensen on 10-05-2023 Ketones Ql (U) Negative Normal Negative [facility] Comment on above: Order Comment: Name Collection Type:: Clean-Voided Midstream Performed By: #### V BG #### Point of Care testing , Lactate [Moles/volume] in Se rum or PlasmaOrdered By: Abby Jensen on 10-05-2023 Lactate [Moles/Vol] 0.6 mmol/L Normal 0.5-2.2 [facility] Comment on above: Result Comment: PERF ORMED BY: [place] [address] PATHOLOGIST TUBE 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 JASON WILSON M.D. Performed By: #### U HCG, ADDONUAPLUS #### [facility] [address] [place] [address] [place] Leukocyte esterase [Presence ] in Urine by Test stripOrdered By: Abby Jensen on 10-05-2023 Leukocyte esterase Test strip Ql (U) Negative Normal Negative [facility] Comment on above: Order Comment: Name Collection Type:: Clean-Voided Midstream Performed By: #### V BG #### Point of Care testing , Leukocytes [#/volume] correc lisa for nucleated erythrocytes in Blood by Automated counOrdered By: Abby Jensen on 10-05-2023 WBC corrected for nucl RBC Auto (Bld) [#/Vol] 12.3 10*3/uL High 3.8-11.6 [facility] Leukocytes [#/volume] in Blo od by Automated countOrdered By: Abby Jensen on 10-05-2023 WBC (Bld) [#/Vol] 12.3 10*3/uL High 3.8-11.6 [facility] Comment on above: Performed By: #### U HCG, ADDONUAPLUS #### [facility] [address] [place] [address] [place] Lymphocytes [#/volume] in Bl ood by Automated countOrdered By: Abby Jensen on 10-05-2023 Lymphocytes (Bld) [#/Vol] 2.1 10*3/uL Normal 1.00-4.8 [facility] Comment on above: Performed By: #### U HCG, ADDONUAPLUS #### [facility] [address] [place] [address] [place] Lymphocytes/100 leukocytes i n Blood by Automated countOrdered By: Abby Jensen on 10-05-2023 Lymphocytes/100 WBC (Bld) 16.8 % Normal . [facility] Comment on above: Performed By: #### U HCG, ADDONUAPLUS #### [facility] [address] [place] [address] [place] MCH [Entitic mass] by Automa lisa countOrdered By: Abby Jensen on 10-05-2023 MCH (RBC) [Entitic mass] 31.8 pg Normal 24.7-34.3 [facility] Comment on above: Performed By: #### U HCG, ADDONUAPLUS #### [facility] [address] [place] [address] MCHC Auto (RBC) [Mass/Vol]Or dered By: Abby Jensen on 10-05-2023 MCHC (RBC) [Mass/Vol] 33.9 g/dL 32.0-35.0 [facility] MCV [Entitic volume] by Auto mated countOrdered By: Abby Jensen on 10-05-2023 MCV (RBC) [Entitic vol] 93.6 fL Normal 80-100 [facility] Comment on above: Performed By: #### U HCG, ADDONUAPLUS #### [facility] [address] [place] [address] Monocyte distribution width [Entitic volume] in Blood by AutomatedOrdered By: Abby Jensen on 10-05-2023 Monocyte distribution width Auto (Bld) [Entitic vol] 16.83 % 0.00-20.00 [facility] Neutrophils [#/volume] in Bl ood by Automated countOrdered By: Abby Jensen on 10-05-2023 Neutrophils (Bld) [#/Vol] 9.3 10*3/uL High 1.8-7.7 [facility] Comment on above: Performed By: #### U HCG, ADDONUAPLUS #### [facility] [address] [place] [address] Nitrite Test strip Ql (U)Ord ered By: Abby Jensen on 10-05-2023 Nitrite Ql (U) Negative Negative [facility] No Panel InformationOrdered By: Abby Jensen on 10-05-2023 Estimated GFR (CKD-EPI) > 60.0 mL/Min [facility] Creatinine Clearance (Chem 116.62 [facility] Nucleated erythrocytes [Pres ence] in Blood by Automated countOrdered By: Abby Jensen on 10-05-2023 Nucleated RBC Auto Ql (Bld) 0.1 /100{WBC} 0-0.5 [facility] PT and aPTT panel Coag (PPP) on 10-05-2023 aPTT Coag (PPP) [Time] 33 s Normal 27-38 Un [facility] Comment on above: Order Comment: The A PTT is no longer used for monitoring Unfractionated Heparin Therapy. For monitoring Heparin Therapy, use the Heparin Assay. Performed By: #### 3 4529-8 ####JOLENE Cantu ([id number])[facility] ([facility])[id number] [place] [address] INR Coag (PPP) [Relative time] 1.0 Normal 0.9-1.[address] [facility] Comment on above: Order Comment: The A PTT is no longer used for monitoring Unfractionated Heparin Therapy. For monitoring Heparin Therapy, use the Heparin Assay. Performed By: #### 3 4529-8 ####JOLENE Cantu ([id number])[facility] ([facility])[id number] [place] [address] PT Coag (PPP) [Time] 11.3 s Normal 9.8-12.8 [facility] Comment on above: Order Comment: The A PTT is no longer used for monitoring Unfractionated Heparin Therapy. For monitoring Heparin Therapy, use the Heparin Assay. Performed By: #### 3 4529-8 ####JOLENE Cantu ([id number])[facility] ([facility])[id number] [place] [address] Partial Thromboplastin Timeo n 10-05-2023 aPTT Coag (Bld) [Time] 33.6 s Normal 25.1-36.5 Th e [facility] Comment on above: Result Comment: A he matocrit value greater than 55% may lead to inaccurate results in coagulation testing. Patients having hematocrit values >55% require a special collection tube for coagulation studies. Please contact the laboratory at [phone] for redraw instructions. PERFORMED BY: [facility] [address] PATHOLOGIST TUBE 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 JASON WILSON M.D. Performed By: #### U HCG, ADDONUAPLUS #### [facility] [address] [place] [id number] [place] Platelet mean volume [Entiti c volume] in Blood by Automated countOrdered By: Abby Jensen on 10-05-2023 Platelet mean volume (Bld) [Entitic vol] 7.5 fL Normal 6.3-10.7 [facility] Comment on above: Performed By: #### U HCG, ADDONUAPLUS #### [facility] [address] [place] [address] [place] Platelets [#/volume] in Bloo d by Automated countOrdered By: Abby Jensen on 10-05-2023 Platelets (Bld) [#/Vol] 464 10*3/uL High 150-450 [facility] Comment on above: Performed By: #### U HCG, ADDONUAPLUS #### [facility] [address] [place] [address] Potassium [Moles/volume] in Serum or PlasmaOrdered By: Abby Jensen on 10-05-2023 Potassium [Moles/Vol] 4.0 mmol/L Normal 3.5-5.1 [facility] Comment on above: Performed By: #### U HCG, ADDONUAPLUS #### [address] Protein Test strip (U) [Mass /Vol]Ordered By: Abby Jensen on 10-05-2023 Protein (U) [Mass/Vol] Negative Negative [facility] Prothrombin time (PT)Ordered By: Abby Jensen on 10-05-2023 PT Coag (PPP) [Time] 12.0 s Normal 9.0-12.9 [facility] Comment on above: A hematocrit value g reater than 55% may lead to inaccurate results in coagulation testing. Patients having hematocrit values >55% require a special collection tube for coagulation studies. Please contact the laboratory at [phone] for redraw instructions. Result Comment: A he matocrit value greater than 55% may lead to inaccurate results in coagulation testing. Patients having hematocrit values >55% require a special collection tube for coagulation studies. Please contact the laboratory at [phone] for redraw instructions. Performed By: #### U HCG, ADDONUAPLUS #### [facility] [address] Renal function 2000 panelon 10-05-2023 Albumin BCP dye [Mass/Vol] 3.9 g/dL Normal 3.4-5.[address] [facility] Comment on above: Performed By: #### 2 4362-6 ####JOLENE RONQUILLO L ([id number])[facility] ([facility])[address] [place] [address] Anion gap [Moles/Vol] 13 mmol/L Normal 10-20 [facility] Comment on above: Performed By: #### 2 4362-6 ####JOLENE RONQUILLO L ([id number])[facility] ([facility])[address] [place] [address] Calcium [Mass/Vol] 8.6 mg/dL Normal 8.6-10.6 [facility] Comment on above: Performed By: #### 2 4362-6 ####JOLENE WELSHMOALEXUSER L ([id number])[facility] ([facility])[address] [place] [address] Chloride [Moles/Vol] 105 mmol/L Normal 98-107 [facility] Comment on above: Performed By: #### 2 4362-6 ####JOLENE WELSHMOTZER L ([id number])[facility] ([facility])[address] [place] [address] CO2 [Moles/Vol] 24 mmol/L Normal 21-32 [facility] Comment on above: Performed By: #### 2 4362-6 ####JOLENE WELSHMOTZER L ([id number])[facility] ([facility])[address] [place] [address] Creatinine [Mass/Vol] 0.68 mg/dL Normal 0.50-1.05 [facility] Comment on above: Performed By: #### 2 4362-6 ####JOLENE WELSHMOTZAD L ([id number])[facility] ([facility])[address] [place] [address] GFR/1.73 sq M.predicted MDRD (S/P/Bld) [Vol rate/Area] mL/min/{1.73_m2} Normal >[address] [facility] Comment on above: Result Comment: Calc ulations of estimated GFR are performed using the 2020 CKD-EPI Study Refit equation without the race variable for the IDMS-Traceable creatinine methods.https://jasn.asnjournals.org/content/early//A SN.1608419696 Performed By: #### 2 4362-6 ####JOLENE Cantu ([id number])[facility] ([facility])[address] [place] [address] Glucose [Mass/Vol] 94 mg/dL Normal 74-99 [facility] Comment on above: Performed By: #### 2 4362-6 ####JOLENE Cantu ([id number])[facility] ([facility])[address] [place] [address] Phosphate [Mass/Vol] 2.8 mg/dL Normal 2.5-4.9 [facility] Comment on above: Result Comment: The performance characteristics of phosphorus testing in heparinized plasma have been validated by the individual laboratory site where testing is performed. Testing on heparinized plasma is not approved by the FDA; however, such approval is not necessary. Performed By: #### 2 4362-6 ####JOLENE Cantu ([id number])[facility] ([facility])[address] [place] [address] Potassium [Moles/Vol] 3.9 mmol/L Normal 3.5-5.3 [facility] Comment on above: Performed By: #### 2 4362-6 ####JOLENE Cantu ([id number])[facility] ([facility])[address] [place] [address] Sodium [Moles/Vol] 138 mmol/L Normal 136-145 [facility] Comment on above: Performed By: #### 2 4362-6 ####JOLENE Cantu ([id number])[facility] ([facility])[address] [place] [address] Urea nitrogen [Mass/Vol] 10 mg/dL Normal 6-[address] [facility] Comment on above: Performed By: #### 2 4362-6 ####JOLENE Cantu ([id number])[facility] ([facility])[address] [place] [address] Serum or plasma anion gap de terminationOrdered By: Abby Jensen on 10-05-2023 Anion gap [Moles/Vol] 11.0 mmol/L Normal 6.0-15.0 [facility] Comment on above: Performed By: #### U HCG, ADDONUAPLUS #### [address] Sodium [Moles/volume] in Ser um or PlasmaOrdered By: Abby Jensen on 10-05-2023 Sodium [Moles/Vol] 138 mmol/L Normal 136-145 [facility] Comment on above: Performed By: #### U HCG, ADDONUAPLUS #### [facility] [address] [place] [address] Specific gravity Test strip (U) [Rel density]Ordered By: Abby Jensen on 10-05-2023 Specific gravity (U) [Rel density] 1.018 1.001-1.030 [facility] Troponin I High Sensitivityo n 10-05-2023 Troponin I High Sensitivity 2.6 pg/mL Normal 0.0-15.0 [facility] Comment on above: Result Comment: PERF ORMED BY: [place] [address] PATHOLOGIST TUBE 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 JASON WILSON M.D. Performed By: #### U HCG, ADDONKARENPLUS #### [facility] [address] [place] [address] Troponin I.cardiac [Mass/vol ume] in Serum or Plasma by Detection limit <= 0.01 ng/Ordered By: Abby Jensen on 10-05-2023 Troponin I.cardiac DL <= 0.01 ng/mL [Mass/Vol] 2.6 pg/mL 0.0-15.0 [facility] Urea nitrogen [Mass/volume] in Serum or PlasmaOrdered By: Abby Jensen on 10-05-2023 Urea nitrogen [Mass/Vol] 12 mg/dL Normal 7-25 [facility] Comment on above: Performed By: #### U HCG, ADDONUAPLUS #### [facility] [address] Urinalysison 10-05-2023 Bilirubin,Urine Negative Normal Negative [facility] Comment on above: Order Comment: Name Collection Type:: Clean-Voided Midstream Performed By: #### V BG #### Point of Care testing , Glucose Ql (U) Normal Normal Normal [facility] Comment on above: Order Comment: Name Collection Type:: Clean-Voided Midstream Performed By: #### V BG #### Point of Care testing , Nitrite,Urine Negative Normal Negative [facility] Comment on above: Order Comment: Name Collection Type:: Clean-Voided Midstream Performed By: #### V BG #### Point of Care testing , Occult Blood,Urine Negative Normal Negative [facility] Comment on above: Order Comment: Name Collection Type:: Clean-Voided Midstream Result Comment: PERF ORMED BY: [place] [address] PATHOLOGIST TUBE 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 JASON WILSON M.D. Performed By: #### V BG #### Point of Care testing , Protein,Urine Negative Normal Negative [facility] Comment on above: Order Comment: Name Collection Type:: Clean-Voided Midstream Performed By: #### V BG #### Point of Care testing , Specificy Salcha,Urine 1.018 Normal 1.001-1.030 [facility] Comment on above: Order Comment: Name Collection Type:: Clean-Voided Midstream Performed By: #### V BG #### Point of Care testing , Urobilinogen,Urine Normal Normal Normal [facility] Comment on above: Order Comment: Name Collection Type:: Clean-Voided Midstream Performed By: #### V BG #### Point of Care testing , Urine Cultureon 10-05-2023 Bacteria identified Cx Nom (U) >100,000 colonies/ml mixed bacterial skin contaminants 2 Days PERFORMED BY: [place] [id number] PATHOLOGIST TUBE 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 JASON WILSON M.D. Normal [facility] Comment on above: Performed By: #### V BG #### Point of Care testing , Urine appearanceOrdered By: Abby Jensen on 10-05-2023 Appearance (U) Clear Normal Clear [facility] Comment on above: Order Comment: Name Collection Type:: Clean-Voided Midstream Performed By: #### V BG #### Point of Care testing , Urine culture routineOrdered By: Abby Jensen on 10-05-2023 Bacteria identified Cx Nom (U) 2 Days [facility] Urobilinogen Test strip (U) [Mass/Vol]Ordered By: Abby Jensen on 10-05-2023 Urobilinogen (U) [Mass/Vol] Normal mg/dL Normal [facility] XR chest 2V*on 10-05-2023 XR chest 2V* [facility] Main [place] [id number] XRay Report Signed Patient: Jerad Tracy MR#: [id number] 49 : 1975 Acct:[id number] Age/Sex: 48 / F ADM Date: 10/05/23 Loc: ER Room: Type: [facility] ER Attending Dr: Copies to: Abby Jensen [...] fatigue vertebral body segment. Impression dictated by: Dinora Ma M.D.10/05/2023 6:49 PM Dictation Location: [place] [address] Transcribed By: [facility] 10/05/231848 Dictated By: Dinora Ma II, MD 10/05/231847 Signed By: 10/05/231848 Normal [facility] pH of Urine by Test stripOrd ered By: Abby Jensen on 10-05-2023 pH (U) 7.5 [pH] Normal 5.0-9.0 [facility] Comment on above: Order Comment: Name Collection Type:: Clean-Voided Midstream Performed By: #### V BG #### Point of Care testing , ED Clinical Summaryon 2023 ED Clinical Summary Normal [facility] ED Patient Education Noteon 10-04-2023 ED Patient Education Note Normal [facility] ED Patient Summaryon 024 ED Patient Summary Normal [facility] ED Clinical Summaryon 2023 ED Clinical Summary [facility] Emergency Department [address] [place], [place] [id number] ED Clinical Summary PERSON INFORMATION Name: JERAD TRACY Age: 48 Years Sex: FEMALE : 1975 MRN: Acct#: Visit Reason: Surgical problem reevaluation; SKIN PROBLEM-BACK Arrival: 09/26/2023 11:09:47 Discharge: 09/26/2023 12:04:00 LOS: 000 00:55 Check In: 09/26/2023 11:09:47 Checkout:09/26/2023 12:04:00 Address: [address] [place] [address] PCP: Cheyanne Mckeon PROVIDER INFORMATION Provider Role [...] PATIENT EDUCATION INFORMATION Instructions: Pain Medicine Instructions, Cmlf-do-Fvhp; Wound Infection, Vfct-td-Kdku; Acute Pain, Adult Follow-Up: With: Address: When: [...] concerns you. With: Address: When: Cheyanne Rosas [address] [place] [address], [place] [address] [facility] () Within 3 to 5 days DIAGNOSIS: Acute post-operative pain; Infected surgical wound Patient Understands: Yes - Patient/family/caregive r verbalizes understanding of instructions given Comment: [facility] ED Note - Physicianon 2023 ED Note [...] a electro stimulator placed. 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 . History of Present Illness The patient presents with wound infection. The onset was 2 days ago. 48-year-old female presented to ER for evaluation of pain at the lower back area. Patient stated that she had a stimulator placed on Saturday. Stated that it was done at [facility]. Stated that she had been prescribed Percocet [...] been prescribed Bactrim and Keflex at the [facility] in [facility]. Apparently was called in yesterday. She [...] mg, Or (more content not included)... Normal [facility] ED Patient Summaryon 024 ED Patient Summary [facility] - Emergency Department [address] [place] [address] PATIENT DISCHARGE INSTRUCTIONS Patient Information Name: JERAD TRACY Age: 48 Years Date of : 1975 [facility]: [id number] Reason For Visit: Surgical problem reevaluation; SKIN PROBLEM-BACK Arrival Time: 09/26/2023 11:09:47 Primary Care Physician: Cheyanne Mckeon Attending Physician: Daryl Cullen MD Comment: Visit Diagnosis: Diagnoses This Visit Acute post-operative pain (G89.18) Infected surgical wound (T81.49XA) Surgical problem reevaluation ([id number]) The Pharmacy at [facility] is open Saturday through Saturday from [...] alcohol and/or drug addiction problems; contact the [facility] 15/10 Crisis Hotline -Text 4SAEM yn 137444. If you received any narcotics, sedation, or [...] concerns you. With: Address: When: Cheyanne Rosas [address] [place] [address], [facility] [place] [address] Business (1) Within 3 to 5 days Medication Information: The exam and treatment you received today in the [facility] Emergency Department were for an urgent problem and are not intended as complete care. It is important for you to follow up with a doctor, nurse practitioner, or physician?s insurance administrative assistant for ongoing care. If your symptoms [...] so we can reach you if necessary. [facility] Emergency Department has provided you with a complete list of medications post discharge. 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 Any specific questions regarding your chronic medications and dosages should be discussed with your primary care physician(s) and/or pharmacist. New Medications [facility] [address] [place], [place] [id number], [phone] acetaminophen-oxycodone (acetaminophen-oxycodon e 325 mg-5 mg oral [...] Weight Dosin.40 (more content not included)... Normal [facility] CT Spine Lumbar w/o Contrast on 09-25-2023 CT Spine Lumbar w/o Contrast Normal [facility] ED Clinical Summaryon 2023 ED Clinical Summary Normal [facility] ED Note-Physicianon 09-25-19 ED Note-Physician Normal [facility] Comment on above: Result Comment: Elec tronically Signed By: Landon Tidwell PA-C\.br\Date and Time Signed: 09/25/23 15:17 EDT\.br\Electronically Co-Signed By: Balbina Bryant M.D.\.br\Date and Time Co-Signed: 09/25/23 15:18 EDT ED Patient Education Noteon 09-25-2023 ED Patient Education Note Normal [facility] ED Patient Summaryon ED Patient Summary Normal [facility] FL FLUORO IMAGES NO CHARGEon 09-23-2023 FL FLUORO IMAGES NO CHARGE These images are not reportable by radiology and will not be interpreted by Radiologists. Normal [facility] ED Clinical Summaryon 2023 ED Clinical Summary Normal [facility] ED Note-Physicianon 09-21-19 ED Note-Physician Normal [facility] Comment on above: Result Comment: Elec tronically Signed By: Kristie Boss PA-C\.br\Date and Time Signed: 09/21/23 15:14 EDT\.br\Electronically Co-Signed By: Nikhil Tubbs DO\.br\Date and Time Co-Signed: 09/21/23 15:21 EDT ED Patient Education Noteon 09-21-2023 ED Patient Education Note Normal [facility] ED Patient Summaryon 024 ED Patient Summary Normal [facility] ED Clinical Summaryon 2023 ED Clinical Summary Normal [facility] ED Note-Physicianon 09-20-19 ED Note-Physician Normal [facility] Comment on above: Result Comment: Elec tronically Signed By: Robert Taylor PA-C\.br\Date and Time Signed: 09/20/23 11:16 EDT\.br\Electronically Co-Signed By: Jorge Mcintosh DO\.br\Date and Time Co-Signed: 09/20/23 18:45 EDT ED Patient Education Noteon 09-20-2023 ED Patient Education Note Normal [facility] ED Patient Summaryon 024 ED Patient Summary Normal [facility] XR SACRUM COCCYX 2+ VIEWSon 09-19-2023 XR SACRUM COCCYX 2+ VIEWS Interpreted By: Susie Brennan, STUDY: XR SACRUM COCCYX 2+ VIEWS; 09/19/2023 1:13 pm INDICATION: Signs/Symptoms:fall. COMPARISON: None. ACCESSION NUMBER(S): [id number] ORDERING CLINICIAN: GERMAINE DIAZ FINDINGS: Three views [...] Susie Brennan 09/19/2023 1:41 PM Dictation workstation: [id number] Normal [facility] Family Medicine Office/Clini c Noteon 09-17-2023 Family Medicine Office/Clinic Note Normal [facility] Comment on above: Result Comment: Elec tronically Signed By: Dax Lira PA-C\.br\Date and Time Signed: 09/17/23 18:07 EDT Patient Educationon 09-17-19 24 Patient Education Normal [facility] HCV RNA panel LINDSEY+probeon HCV RNA LINDSEY+probe [Log units/Vol] Normal [facility] Comment on above: Order Comment: Repor [...] the Molecular Diagnostic Laboratory, Department of Pathology, [facility]. Result Comment: Not calculated Performed By: #### 5 0023-1 ####JOLENE Cantu ([id number])[facility] ([facility])[address] [place] [address] HCV RNA LINDSEY+probe Qn Not detected Normal Not detected [facility] Comment on above: Order Comment: Repor [...] the Molecular Diagnostic Laboratory, Department of Pathology, [facility]. Performed By: #### 5 0023-1 ####JOLENE Cantu ([id number])[facility] ([facility])[address] [place] [address] Hepatic function 2000 panelo n 09-16-2023 Albumin BCP dye [Mass/Vol] 4.1 g/dL Normal 3.4-5.[address] [facility] Comment on above: Performed By: #### 2 4325-3 ####GIOVANNI BURNETT ([id number])[facility] ([facility])[address] [place] [address] ALP [Catalytic activity/Vol] 96 U/L Normal 33-[address] [facility] Comment on above: Performed By: #### 2 4325-3 ####GIOVANNI BURNETT ([id number])[facility] ([facility])[address] [place] [address] ALT With P-5'-P [Catalytic activity/Vol] 21 U/L Normal 7-[address] [facility] Comment on above: Result Comment: Katia ents treated with Sulfasalazine may generate falsely decreased results for ALT. Performed By: #### 2 4325-3 ####GIOVANNI BURNETT ([id number])[facility] ([facility])[address] [place] [address] AST With P-5'-P [Catalytic activity/Vol] 17 U/L Normal 9-[address] [facility] Comment on above: Performed By: #### 2 4325-3 ####GIOVANNI BURNETT ([id number])[facility] ([facility])[address] [place] [address] Bilirubin [Mass/Vol] 0.2 mg/dL Normal 0.0-1.2 [facility] Comment on above: Performed By: #### 2 4325-3 ####GIOVANNI BURNETT ([id number])[facility] ([facility])[address] [place] [address] Bilirubin.direct [Mass/Vol] 0.1 mg/dL Normal 0.0-0.[address] [facility] Comment on above: Performed By: #### 2 4325-3 ####GIOVANNI BURNETT ([id number])[facility] ([facility])[address] [place] [address] Protein [Mass/Vol] 6.7 g/dL Normal 6.4-8.2 [facility] Comment on above: Performed By: #### 2 4325-3 ####GIOVANNI BURNETT ([id number])[facility] ([facility])[address] [place] [address] XR ELBOW RIGHT 3+ VIEWSon XR ELBOW RIGHT 3+ VIEWS STUDY: Elbow Radiographs; 09/16/2023 4:48 PM INDICATION: Injury to the right elbow. COMPARISON: None Available. ACCESSION NUMBER(S): [id number] ORDERING CLINICIAN: GERMAINE BLAIR TECHNIQUE: Five view(s) of the right elbow. FINDINGS: There is no displaced fracture. The alignment is anatomic. No soft tissue abnormality is seen. There is no joint effusion. IMPRESSION: No acute bony abnormalities. Signed by Johan Connor MD [facility] Coding Summary.on 09-12-2023 Coding Summary. Normal [facility] Provider Letteron 09-12-2023 Provider Letter Normal [facility] Discharge Instructionson Discharge Instructions [id number]#1.00T IFF Normal [facility] MRI Spine Lumbar w/o Contras ton 09-10-2023 MRI Spine Lumbar w/o Contrast Normal [facility] RAD - Preliminary Cat Scan R eporton 09-10-2023 RAD - Preliminary Cat Scan Report [id number]#1.00T IFF Normal [facility] Consent for Treatmenton 08-23 Consent for Treatment [id number]#1.00T IFF Normal [facility] ED Clinical Summaryon 2023 ED Clinical Summary Normal [facility] ED Note-Physicianon 09-09-19 ED Note-Physician Normal [facility] Comment on above: Result Comment: Elec tronically Signed By: Landon Tidwell PA-C\.br\Date and Time Signed: 09/09/23 23:52 EDT\.br\Electronically Co-Signed By: Elisa Sánchez DO.br\Date and Time Co-Signed: 09/09/23 23:54 EDT ED Patient Education Noteon 09-09-2023 ED Patient Education Note Normal [facility] ED Patient Summaryon 024 ED Patient Summary Normal [facility] RAD - MRI Screening Formon 0 09-09-2023 RAD - MRI Screening Form [id number]#1.00 TIFF Normal [facility] ED Clinical Summaryon 2023 ED Clinical Summary Normal [facility] ED Note-Physicianon 09-07-19 ED Note-Physician Normal [facility] Comment on above: Result Comment: Elec tronically Signed By: Zhane Castro PA-C\.br\Date and Time Signed: 09/07/23 00:11 EDT\.br\Electronically Co-Signed By: Pedro Pablo Fletcher DO\.br\Date and Time Co-Signed: 09/07/23 01:06 EDT ED Patient Education Noteon 09-07-2023 ED Patient Education Note Normal [facility] ED Patient Summaryon 024 ED Patient Summary Normal [facility] Consent for Treatmenton 08-23 Consent for Treatment [id number]#1.00T IFF Normal [facility] Consent for Treatmenton 08-23 Consent for Treatment [id number]#1.00T IFF Normal [facility] Discharge Instructionson Discharge Instructions [id number]#[id number] TIFF Normal [facility] ED Clinical Summaryon 2023 ED Clinical Summary Normal [facility] ED Note-Physicianon 09-02-19 ED Note-Physician Normal [facility] Comment on above: Result Comment: Elec tronically Signed By: Jorge Mcintosh DO\.br\Date and Time Signed: 09/02/23 18:33 EDT ED Patient Education Noteon 09-02-2023 ED Patient Education Note Normal [facility] ED Patient Summaryon 024 ED Patient Summary Normal [facility] Progress Note-Nurseon 2023 Progress Note-Nurse left with ride Normal [facility] Consent for Treatmenton Consent for Treatment [id number]#1.00T IFF Normal [facility] Discharge Instructionson Discharge Instructions [id number]#1.00 TIFF Normal [facility] ED Clinical Summaryon 2023 ED Clinical Summary Normal [facility] ED Note-Nursingon 08-30-2023 ED Note-Nursing pt states she is mitra ng driven home by her who is at bedside Normal [facility] ED Note-Physicianon 08-30-19 ED Note-Physician Normal [facility] Comment on above: Result Comment: Elec tronically Signed By: April Krueger PA-C\.br\Date and Time Signed: 08/30/23 19:02 EDT\.br\Electronically Co-Signed By: Nikhil Tubbs DO\.br\Date and Time Co-Signed: 08/30/23 19:48 EDT ED Patient Education Noteon 08-30-2023 ED Patient Education Note Normal [facility] ED Patient Summaryon 024 ED Patient Summary Normal [facility] Coding Summaryon 08-27-2023 Coding Summary HTMLBase 64 OlatgfudHVs5cIk+PGhlYWQ +NU6LLIGbU01tlXLixY0cC2 NMTElOSywgQVBQTElOSyIgb eLmID8mhZWrJZJk IC8+BM6aEVTtCbxabVEmt2W 5bQF5H50xss8lFZbgoTQ2DB BuJxGhykbne6jblFw0YNhaR mluOyBt BSNrpC00AYK1xI48Pn64uLV yxWDwy2nghAg6CqZiUOPdQQ N2gQuoKBfus6DfBMQiP52sd QWph8T0 FMHhfJcqhUSaDnJzrSB7sW8 nTPxudbzyb2fbpzttLmb5ge 79fRLuj1P2fKT5F4UunuF1J GJvbGQg HopybDTVaV3slnqik4wacic nKpNqJVUeJSu6ILb9XMYbvH rhZkVqLJ58ETF5CVNpryGmR 2FsLWFs iLutNnK8n3F5Bo8GD1FCVup yN0PIIEDGSUtoyNT+PC90cj 11F4NlXktuFic5CBNcQJH8u FP6hB9s QNFnWDdnf4A2gMA9P1WoffT vxi0tw7soTZEzXZdcQ35riW Gob4W6ZPNlbVQ0IGEuuQnnM iBzaG93 Oyc+ATDgaPwuq5AlTqtvm7h fn2ebvBq2JrvfNJMgseGhbK ylKOV6r9LnOc8hXZYitQY0m PO3gS1y VfKwJaK7PWiwL454QmFnmWG oXdmkA76fO4HaoFO+PHRyPj o2LZWyvJmeCF2tD9QnGWFsi mctbGVm kHtvCJ0eAWCscsutZPOfmB0 lBNNtL9t9SxOaGrX5FSdsS4 HqRDWgzdhxAq19jK8wOkUqB iX2YDlm O7YlbcP8JTNozTOuSVtsRIP 8H87xo9S1YGQsWJOeNPR8qN W6nN7idTrbatzsiJXclYmyu mVydGlj PRreBZwyK904FZHjwIyxScA vZGluZyBEYXRlOiAgMDYvMD QvMjAyNDwvdGQ+PZCwHYK8u WxlPSAn wHZxEZfaXr1yhAgwlQmhJU2 vLEXjmyldOCPsiX9gVBWfwT RgqIzySK6tRDTjtfqax768Z iAxMHB0 XXMutONwO2SccV1nIbHtORC lNXLpO3RiwNDbWHnoE492ZC lcOsU1GMLresVnO7SfXPJku WduOiB0 s7R7Jh4Zu9IvsfndL3OusVG rWqYyHnaoSWu6F2KaFppynI I+RA50IOPlMI64JCn1VHS6t WxlPSdi YMWlQ3SysJ8oTvMsBZMzKRW kOyc+PHRhYmxlIHdpZHRoPS mrHEVxPgRvjUybUQ9sNu9qC GVyLWNv sRtgbDBgTkNbx1bySHQwYGf sBB1lrLknV1NsqUO5HJBry6 b2Jo82I06cA7BdyPJ+PGNvb IL6zID8 fW1wZnDbUwU2RHnvQ832RdY yjHGkAugah0mlx3btkSp5Vl F6TXMlafKjsLwjXNX2i3ZpQ a41J58m IHdpZHRoPSIxNSUiIHZhbGl qeu4sxV5fBq3+BOIcuNL9tV G5qH6cKxByHeJ0PFylT499E nRvcCIv Qdmnu5gph4zppGj0PfJqUEP tcfDbkYjtLEV0e9LcPs10C3 YirXfsz0FbZhh5yv57oNJdd 3A0uHC8 M4FyHRHveyhmaICneBjdPA3 kPIBahackVBXqyU9aOUKoA2 u1ZaXaVbO8GObuE4PbxhJ0G GJvbGQg ZIRjvQLVdB9injbae0zglde lOqMaMJOuVQq9ICi2CZQqjU ztHoSlYBS3QnT1PFH8zBTkx B1fdXsz sisvgK2qHgc+VQP9xCPycDH YMQ1fEdbcdSD+YPHaXBR9iM kpJDoeOGLgiK4mWCAqH6m8W iAwLjA1 VWsgS1IwwzK5BJRolSLlGXO zqNLMiF6rufkbo1iztsnpXq RnYRAhARp8WUg5AKWlhCjpV iBsZWZ0 HcV4PMH9dHVlfJ4jzJimhrg xpI0xTwf+OnfejTmeVUJ0AY e1Z1IaBpl3FGZlaYcyWB8xa GFkZGlu Fl5nzUmbsKynMI2eGOZecpt dr105BoEnn2mkOCRbdXIoEM fcHLF5T72cp2T4LULtQRFuA PW4gUF4 sI6rqEheeeehaWFbzBqovtD aiSqgYCggKBwkG091HBOckU chLsZrHPn8O6WyXuq1UUAhj ApaQS9k eQGqTVbnCo0goKekgJosRT4 mMNEnmkznc668YbCut0fySX YxzMIkBKhzXMT1H72pv2Q6G CMwMDAw FYP5uWE0aY2mmDvqsufojSA mdDsgdmVydGljYWwtYWxpZ2 24VDGmiWkaPlPygRo4E9BuB eu6OHYq zShoYR0prLLoZLfkJj2wyIf mwPotRK3gBAKbermdo192Xb Rfw1oaECVelABxLLnnAVB1J 63vo9K8 FLFpUSCdKYD6dRK1uV0dzFm nbjogbGVmdDsgdmVydGljYW mhCFeyL464LCKprGneQaWll GllbnQg XQopVAx8N9BvUvcnyKO+PC9 1PRRdBD63xQMltMBji7akzO m6IeJdDKAmHOQ3sZftKQjjo 3JkZXIt Y36ekANmi9I4OAGdiBmjbRW eIhLhkON8nP1dATuovpztv0 ycpygmHkvpb2gcaq68lE76I 29sIHdp ZHRoPSIzMCUiIHZhbGlnbj0 ezI1oZx3+JHUjxNP9iLX8cA 0wYOOmIfR3WTtlJ369JgIfp CIvPjxj w7udq1gnrWk6BuO3SJHrosC ixUrbABU3c1XvHj56O71oMI dpZHRoPSIyMCUiIHZhbGlnb q7dzZ0w Ii8+AFZqsQY4xGS5nY6zWoX lDaR7DSgeB230SkCbvOGvAc hqK95xO9GlcKZ+QGLbCwf4W CBzdHls OM9nfBZdGGqtDr1zFLH5RvM qFtFlEDvvK7AzVYPrfunuuc vubNX3SYEaJUHecS74Jm1dw DogMTBw pVXHeC7jzxcxe9rtaolbPeO uTCLbIBs7WFr1IKAsaBlxIt BzGRI1YrG0ZSF0pTXqeN6wj Glnbjog eN7iE6XgZQGpgdefPd11mJ0 dMoZwQuK8QItuSvy+TElFQi cqNIHDIKTTSPCPTbmQXuK2L 4YrBow0 GFSczTaeDV7voUUmNSqcTz2 keGxruBklDY8jZOLupcuuRY WoaC5lJLEpqXKdmOptAF3wY TBpbjtm t057XrMtBIJ3DCKdvIHeF1G qkZ4kBiXdTZArQSVlF2LnsV JfXFnyG277UJplVhP9CXFfd aTiL3Xi VELsbUjwOxV1f3A8Tf8uJj7 tIH1gABf0NL23GX57kMZlc9 X3dGV0W7YmFLVqrsufnyood FL0ZGVo KPSekD11mCJbIGavHl6po5E 2o840LMKlEENkdX23Dr9cdB ehITSoxEZAwO4hbjqhv2fsy jogIzAw RBLjHVx4YUa6NEZqvQvdDaT xGAO3JrY1ZNI3nYSolQ0cpT hjetduyJ4eNnr+NDYgWWVhc hX6X9Ev Bhx5ALYghZlqFU3ldKGfTTd nYt5dmEncnPruDT3kWIDrov udBWQzpD3uTVOvhNYpdAbnP B1yRWGk fjbcw070QxDhZJC7REYumNE hJ2JqxW3tDkKvBOGuKZLcY2 PexTPbMLyaU666REnaJzH4B HZlcnRp H7NaRVHmlUyoIeM6y4G7Fk5 FMC5WXPF4F6VuMiu8NHOscS atMI0gxTYeHDnkVx7ilPjiy HwcQB8t KMOhklmiBMUkaU4lACGopTH hlTnpXH0zOJHcjsjnz773Yi PhJMB6TFRoqERsK5XexA8aK iAjMDAw YPMlG6NuwHUaDZyxM797CCv nGxI8EIHrswFlN9KrDMFhkI wyMzV1p8B9Hh7ZtNRoI1VfT 4s5S5Xp PjwvdHI+ZT52ETVoZM31gQQ oaTBbs8psnYb1WhUoWFQmQI G6iTgwQGdww0CyVMPlR93ye CSmj3W2 MCNocEfvjTNiBrGvlOH8mA8 dACtsapneo0iseooaRokls5 gkgd41eL03R09lOSyaUYVwK SIzMCUi HCVerMvcff7efQ5yXz4+PGN ftHY2vOW4bB3hLfAmLhY6QI jcB723HtXkzVTwVymog2qne 5mozRi5 SzEsSJPddmLjxFmyREK7n7I hLw94E09gPHrhJZYxLKGyLD ZqINBlcIweyv9rhC6zLt1+P R3wn4xb qv34xL19vWB+HRFsGNE3pFz qOQirRAAucD7uYLlhZiW6HE IsPjSxyG14yRMnMZnsQh3eo WdodDog ZK7vDXMudpnxg381MkBsg3w fWWJtbNBhMYxwLQL5P49gx3 G1VMUrCEJbJJM3gPF5nQ6oo Glnbjog bGVmdDsgdmVydGljYWwtYWx tZ100GHScrCvwYqRikKRmE8 scsdAIOJ4rIkoezZY+PHRkI WO0hAew HSbpNEOtqO7rGYKyU4m9OrG oIpJ1XLdpI4ItyiG7JMLlcJ DvTTJsmRTXcX9chiqzt9eqn jogIzAw AZMfHSw0BRe9TJBaqYkbYbU vMLQ3CzF8LFL4nUIzaJ2diV rbxymhoS6gIsb+RklOOjwvd GQ+PHRk XXR0kOjiJVhwMTKfbI4nJVL zM5j1DtUaBxX6UOxnT6Mvzw Z9EMWrySDqEZNldWZTjM9vi cyop9ti ugkkEdWlMJLqPAp9ZBk9FYV anKdnNbYxNUJ6LbO2IMK1zD PurP0paFwcmrdcnJ8fGpd+T VJOOjwv dGQ+MKIcBNN2cNfqNYjpDLO ytO1gFIWaJ1o0XvKqNrA8EV daE9NrvzV5BGKwfWYhSJMvw PHSnS1l gxomo2zpkhsaBfVaLJEwKDv 7RBp4PSThvUsqQsUcBNK0Yb O7XEW6yZPrvM0haVviicyhm G9wOyc+ KPI3HPS9PV03QN49K4NaRtc vdGFibGU+PHRhYmxlIHdpZH RtWJhbCOJrLxJzmSdoAZ5iL p1gUWJh LWN (more content not included)... [facility] FL FLUORO IMAGES NO CHARGEon 08-21-2023 FL FLUORO IMAGES NO CHARGE These images are not reportable by radiology and will not be interpreted by Radiologists. [facility] VERAB/VERIFY ABORHon 024 ABO group Nom (Bld) O [facility] Comment on above: Performed By: #### V ERAB ####JOLEEN Cantu ([id number])[facility] ([facility])[address] [place] [address] D Ag Ql (Bld) Positive [facility] Comment on above: Performed By: #### V ERAB ####JOLENE Cantu ([id number])[facility] ([facility])[address] [place] [address] Verify ABO/Rh Group Test (VE RAB)on 08-21-2023 ABO group Nom (Bld) O [facility] D Ag Ql (Bld) Positive [facility] XR tomography Unspecified diana dy regionon 08-21-2023 These images are not reportable by radiology and will not be interpreted by Radiologists. IMAGING ED Clinical Summaryon 2023 ED Clinical Summary [facility] Emergency Department [address] [place] [address] ED Clinical Summary PERSON INFORMATION Name: JERAD TRACY Age: 48 Years Sex: FEMALE : 1975 MRN: Acct#: Visit Reason: Back pain; FELL , LOWER BACK PAIN Arrival: 08/17/2023 15:31:41 Discharge: 08/17/2023 17:29:00 LOS: 000 01:58 Check In: 08/17/2023 15:31:41 Checkout:08/17/2023 17:29:00 Address: [address] [place] [address] PCP: Cheyanne Mckeon PROVIDER INFORMATION Provider Role Assigned Unassigned Peter Chavez DO ED Provider 08/17/2023 16:07:25 Gayla Miranda PALM GATHERER Nurse 08/17/2023 16:08:50 VITALS INFORMATION Vital Sign [...] Diagnoses: Acute lumbosacral myofascial strain Author: Peter Chvaez DO Basic Information Additional information: Chief Complaint [...] area. Patient supposed to have surgery at [facility] next month. Patient tripped over a [...] paraspinal musculat (more content not included)... Normal [facility] ED Note - Physicianon 2023 [...] area. Patient supposed to have surgery at [facility] next month. Patient tripped over a [...] for close (more content not included)... Normal [facility] ED Patient Summaryon 024 ED Patient Summary [facility] - Emergency Department [address] [place] [address] PATIENT DISCHARGE INSTRUCTIONS Patient Information Name: JERAD TRACY Age: 48 Years Date of : 1975 Reason For Visit: Back pain; FELL , LOWER BACK PAIN Arrival Time: 08/17/2023 15:31:41 Primary Care Physician: Chyeanne Mckeon Attending Physician: Peter Chavez DO Comment: Visit Diagnosis: Diagnoses This Visit Acute lumbosacral myofascial strain (S39.012A) Back pain ([id number]) The Pharmacy at [facility] is open Saturday through Saturday from [...] alcohol and/or drug addiction problems; contact the [facility] 15/10 Crisis Hotline -Text 4HEKX to 620269. If you received any narcotics, sedation, or [...] and treatment you received today in the [facility] Emergency Department were for an urgent problem and are not intended as complete care. It is important for you to follow up with a doctor, nurse practitioner, or physician?s insurance administrative assistant for ongoing care. If your symptoms [...] so we can reach you if necessary. [facility] Emergency Department has provided you with a complete list of medications post discharge. 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 heel seat laster/provider of your visit and for further instruction [...] a treatme (more content not included)... Normal [facility] XR Spine Lumbosacral 2 or [...] Manuel Doll MD 08/17/23 5:42 pm Technologist: Mukund TRAN [facility] CT Head or Brain w/o Contras ton 08-16-2023 CT Head or Brain w/o Contrast Normal [facility] CT Spine Cervical w/o Contra ston 08-16-2023 CT Spine Cervical w/o Contrast Normal [facility] Discharge Instructionson Discharge Instructions [id number]#1.0 0TIFF Normal [facility] ED Clinical Summaryon 2023 ED Clinical Summary (Inserted Image. Darlene ble to display) [address] [address] ED Clinical Summary Person Information Name: Jerad Tracy/[facility] Age: 48 Years : 1975 Sex: Female PCP: Unavailable, Physician Marital Status: Phone: Race: White Ethnicity: Not or Language: Cambodian Visit Reason: Back pain; back pain Acuity: 4 Enc Type: Emergency Med Service: Emergency Medicine Arrival: 08/16/2023 15:20:16 Discharge: 08/16/2023 16:38:00 LOS: 000 01:18 Checkin: 08/16/2023 15:20:16 Checkout: 08/16/2023 16:38:00 Dispo Type: Home or Self Care Address: [address] [place] [address] [phone] Provider Notes: Diagnosis: 1:Chronic back pain Problems [...] Caring for Your Back Throughout the Day [facility] Poison Help line: . [facility] Hotline: [place] Tobacco Quit Line: [facility] ([place], [place]) [address]: [phone] [facility] ([place], [place]) [address]: [phone] [facility] [address] [place], [place]: [phone] [facility] ED Clinical Summary Normal [facility] ED Note-Physicianon 08-16-19 ED Note-Physician Chief Complaint Patient was traveling in the car from [place] and has started having lower back spasms. [...] more ciga (more content not included)... Normal [facility] ED Note-Physician Normal [facility] Comment on above: Result Comment: Elec tronically Signed By: Annette Watkins, Balbina Sparks\.br\Date and Time Signed: 08/16/23 03:58 EDT ED Patient Education Noteon 08-16-2023 ED Patient Education Note Normal [facility] ED Patient Summaryon 024 ED Patient Summary Normal [facility] RAD - Preliminary Cat Scan R eporton 08-16-2023 RAD - Preliminary Cat Scan Report [id number]#1.0 0TIFF Normal [facility] RAD - Preliminary Cat Scan Report [id number]#1.0 0TIFF Normal [facility] Workers Comp Formson 024 Workers Comp Forms [id number]#1.0 0TIFF Normal [facility] XR Spine Lumbosacral 2 or 3 Viewson 08-16-2023 XR Spine Lumbosacral 2 or 3 Views Normal [facility] XR Spine Thoracic 3 Viewson 08-16-2023 XR Spine Thoracic 3 Views Normal [facility] Consent for Treatmenton 07-24 Consent for Treatment [id number]#1.00T IFF Normal [facility] Consent for Treatmenton 07-24 Consent for Treatment [id number]#1.00 TIFF Normal [facility] Consultation Noteon 08-14-19 Consultation Note Normal [facility] Comment on above: Result Comment: Elec tronically Signed By: Christos SLATER, Domenic Redbr\Date and Time Signed: 08/14/23 16:33 EDT Office/Clinic Note-Physician on 08-14-2023 Office/Clinic Note-Physician [id number]#1.00 TIFF Normal [facility] Patient Correspondenceon Patient Correspondence [id number]#1.00 TIFF Normal [facility] Patient Correspondence [id number]#1.00 TIFF Normal [facility] Patient History Officeon Patient History Office [id number]#1.00 TIFF Normal [facility] Consent for Treatmenton 07-24 Consent for Treatment [id number]#1.00T IFF [facility] Discharge Instructionson Discharge Instructions [id number]#1.00 TIFF Normal [facility] ED Clinical Summaryon 2023 ED Clinical Summary Normal [facility] ED Note-Nursingon 08-12-2023 ED Note-Nursing This nurse went to discharge patient and recheck vitals and patient has eloped from the department without her instructions. Normal [facility] ED Note-Physicianon 08-12-19 ED Note-Physician Normal [facility] Comment on above: Result Comment: Elec tronically Signed By: Elisa Sánchez DO.rufino\Date and Time Signed: 08/12/23 22:53 EDT ED Patient Education Noteon 08-12-2023 ED Patient Education Note Normal [facility] ED Patient Summaryon 024 ED Patient Summary Normal [facility] ED NOTESon 08-09-2023 Php Ed Note ED Note: Last filed note HNO ID: [id number] Author: Yarelis Finley RN Service: ? Author Type: Registered Nurse Filed: 08/09/23 5649 Note Text: Discharge instructions, medications and follow up discussed with patient with patient's understanding verbalized. Patient left the department in no acute distress. Normal [facility] ED PROVIDER NOTESon 08-09-19 [facility] Provider Note ED Provider Note: L ast filed note HNO ID: [id number] Author: Keke Payne MD Service: ? Author Type: Physician Filed: 08/09/23 0409 Note Text: [facility] Keke Payne MD Attending [...] upcoming lumbar surgery in 2 weeks at [facility]. She just had a 3-hour car ride [...] lower back pain with radicular pain Normal [facility] Ed Provider Note ED Provider Note: Pepe ast filed note HNO ID: [id number] Author: Courtney Gibbs MD Service: Emergency Medicine [...] scheduled for surgery later this month in [place]. Patient states that she is in town [...] Once, Courtney Gibbs MD, 1 Patch at 08/09/23 6583 Current Outpatient Medications: oxyCODONE-acetaminophen (PERCOCET) 5-325 mg [...] Liters Per Minute: 0 LITERS PER MINUTE (08/09/230) Oxygen Source: Rm Air (08/09/232145) Vitals during [...] topical patc (more content not included)... Normal [facility] ED TRIAGEon 08-09-2023 [facility] Triage Note ED Triage Note: Last filed note HNO ID: [id number] Author: Juan Gustafson RN Service: ? Author Type: Registered Nurse Filed: 08/09/23 2453 Note Text: Patient arrives through triage for complaints of chronic back pain that is worsened by a [address] Endorses history of L 4-5 disc herniation. A/O x4 with respirations even and unlabored. Normal [facility] Consent for Treatmenton 07-23 Consent for Treatment [id number]#1.00T IFF Normal [facility] Discharge Instructionson Discharge Instructions [id number]#1.0 0TIFF Normal [facility] ED Clinical Summaryon 2023 ED Clinical Summary Normal [facility] ED Note-Physicianon 08-05-19 ED Note-Physician Normal [facility] Comment on above: Result Comment: Elec tronically Signed By: Landon Tidwell PA-C\.br\Date and Time Signed: 08/05/23 21:19 EDT\.br\Electronically Co-Signed By: Pedro Pablo Fletcher DO\.br\Date and Time Co-Signed: 08/05/23 22:58 EDT ED Patient Education Noteon 08-05-2023 ED Patient Education Note Normal [facility] ED Patient Summaryon 024 ED Patient Summary Normal [facility] Basic metabolic 2000 panelon 08-02-2023 Anion gap [Moles/Vol] 15 mmol/L Normal - [facility] Comment on above: Performed By: #### 2 4321-2 ####JOLENE Cantu ([id number])[facility] ([facility])[address] [place] [address] Calcium [Mass/Vol] 8.8 mg/dL Normal 8.6-10.6 [facility] Comment on above: Performed By: #### 2 4321-2 ####JOLENE Cantu ([id number])[facility] ([facility])[address] [place] [address] Chloride [Moles/Vol] 105 mmol/L Normal 98-107 [facility] Comment on above: Performed By: #### 2 4321-2 ####JOLENE Cantu ([id number])[facility] ([facility])[address] [place] [address] CO2 [Moles/Vol] 24 mmol/L Normal 21-32 [facility] Comment on above: Performed By: #### 2 4321-2 ####JOLENE Cantu ([id number])[facility] ([facility])[address] [place] [address] Creatinine [Mass/Vol] 0.63 mg/dL Normal 0.50-1.05 [facility] Comment on above: Performed By: #### 2 4321-2 ####JOLENE Cantu ([id number])[facility] ([facility])[address] [place] [address] GFR/1.73 sq M.predicted MDRD (S/P/Bld) [Vol rate/Area] mL/min/{1.73_m2} Normal >[address] [facility] Comment on above: Result Comment: Calc ulations of estimated GFR are performed using the 2020 CKD-EPI Study Refit equation without the race variable for the IDMS-Traceable creatinine methods.https://jasn.asnjournals.org/content//A SN.7314279474 Performed By: #### 2 4321-2 ####JOLENE Cantu ([id number])[facility] ([facility])[address] [place] [address] Glucose [Mass/Vol] 87 mg/dL Normal 74-99 [facility] Comment on above: Performed By: #### 2 4321-2 ####JOLENE Cantu ([id number])[facility] ([facility])[address] [place] [address] Potassium [Moles/Vol] 4.8 mmol/L Normal 3.5-5.3 [facility] Comment on above: Performed By: #### 2 4321-2 ####JOLENE Cantu ([id number])[facility] ([facility])[address] [place] [address] Sodium [Moles/Vol] 139 mmol/L Normal 136-145 [facility] Comment on above: Performed By: #### 2 4321-2 ####JOLENE Cantu ([id number])[facility] ([facility])[address] [place] [address] Urea nitrogen [Mass/Vol] 10 mg/dL Normal 6-[address] [facility] Comment on above: Performed By: #### 2 432-2 ####JOLENE Cantu ([id number])[facility] ([facility])[address] [place] [address] Blood type and Indirect anti body screen panel (Bld)on 08-02-2023 ABO group Nom (Bld) O [facility] Comment on above: Performed By: #### 3 4532-2 ####JOLENE Cantu ([id number])[facility] ([facility])[address] [place] [address] Blood group antibody screen Ql Negative [facility] Comment on above: Performed By: #### 3 4532-2 ####JOLENE Cantu ([id number])[facility] ([facility] [place] [address] D Ag Ql (Bld) Positive [facility] Comment on above: Result Comment: 2nd ABO test required. Order and Collect VERAB Performed By: #### 3 4532-2 ####JOLENE Cantu ([id number])[facility] ([facility])[address] [place] [address] CBC panel Auto (Bld)on 08-01 Erythrocyte distribution width (RBC) [Ratio] 12.7 % Normal 11.5-14.[address] [facility] Comment on above: Performed By: #### 5 8410-2 ####JOLENE Cantu ([id number])[facility] ([facility])[address] [place] [address] Hematocrit (Bld) [Volume fraction] 42.8 % Normal 36.0-46.[address] [facility] Comment on above: Performed By: #### 5 8410-2 ####JOLENE Cantu ([id number])[facility] ([facility])[id number] [place] [address] Hemoglobin (Bld) [Mass/Vol] 14.4 g/dL Normal 12.0-16.[address] [facility] Comment on above: Performed By: #### 5 8410-2 ####JOLENE Cantu ([id number])[facility] ([facility])[address] [place] [address] MCH (RBC) [Entitic mass] 30.9 pg Normal 26.0-34.[address] [facility] Comment on above: Performed By: #### 5 8410-2 ####JOLENE Cantu ([id number])[facility] ([facility])[address] [place] [address] MCHC (RBC) [Mass/Vol] 33.6 g/dL Normal 32.0-36.0 [facility] Comment on above: Performed By: #### 5 8410-2 ####JOLENE Cantu ([id number])[facility] ([facility])[id number] [place] [address] MCV (RBC) [Entitic vol] 92 fL Normal 80-[address] [facility] Comment on above: Performed By: #### 5 8410-2 ####JOLENE Cantu ([id number])[facility] ([facility])[address] [place] [address] Nucleated RBC/100 WBC (Bld) [Ratio] 0.0 /100 WBCs Normal 0.0-0.[address] [facility] Comment on above: Performed By: #### 5 8410-2 ####JOLENE Cantu ([id number])[facility] ([facility])[address] [place] [address] Platelets (Bld) [#/Vol] 308 x10*3/uL Normal 150-[address] [facility] Comment on above: Performed By: #### 5 8410-2 ####JOLENE Cantu ([id number])[facility] ([facility])[address] [place] [address] RBC (Bld) [#/Vol] 4.66 x10*6/uL Normal 4.00-5.20 [facility] [facility] [place] Comment on above: Performed By: #### 5 8410-2 ####JOLENE Cantu ([id number])[facility] ([facility])[address] [place] [address] WBC (Bld) [#/Vol] 5.9 x10*3/uL Normal 4.4-11.3 [facility] Comment on above: Performed By: #### 5 8410-2 ####JOLENE Cantu ([id number])[facility] ([facility])[address] [place] [address] CT Spine Lumbar w/o Contrast on 08-02-2023 CT Spine Lumbar w/o Contrast Normal [facility] Consent for Treatmenton 07-23 Consent for Treatment [id number]#1.00T IFF Normal [facility] Discharge Instructionson Discharge Instructions [id number]#1.00 TIFF Normal [facility] ED Clinical Summaryon 2023 ED Clinical Summary Normal [facility] ED Note-Physicianon 08-02-19 ED Note-Physician Normal [facility] Comment on above: Result Comment: Elec tronically Signed By: Landon Tidwell PA-C\.br\Date and Time Signed: 08/02/23 15:22 EDT\.br\Electronically Co-Signed By: Nikhil Tubbs DO\.br\Date and Time Co-Signed: 08/02/23 15:32 EDT ED Patient Education Noteon 08-02-2023 ED Patient Education Note Normal [facility] ED Patient Summaryon 024 ED Patient Summary Normal [facility] PT and aPTT panel Coag (PPP) on 08-02-2023 aPTT Coag (PPP) [Time] 33 s Normal 27-38 Un [facility] Comment on above: Order Comment: The A PTT is no longer used for monitoring Unfractionated Heparin Therapy. For monitoring Heparin Therapy, use the Heparin Assay. Performed By: #### 3 4529-8 ####JOLENE Cantu ([id number])[facility] ([facility])[id number] [place] [address] INR Coag (PPP) [Relative time] 1.0 Normal 0.9-1.[address] [facility] Comment on above: Order Comment: The A PTT is no longer used for monitoring Unfractionated Heparin Therapy. For monitoring Heparin Therapy, use the Heparin Assay. Performed By: #### 3 4529-8 ####JOLENE Cantu ([id number])[facility] ([facility])[address] [place] [address] PT Coag (PPP) [Time] 11.1 s Normal 9.8-12.8 [facility] Comment on above: Order Comment: The A PTT is no longer used for monitoring Unfractionated Heparin Therapy. For monitoring Heparin Therapy, use the Heparin Assay. Performed By: #### 3 4529-8 ####JOLENE Cantu ([id number])[facility] ([facility])[id number] [place] [address] Progress Note-Nurseon 2023 Progress Note-Nurse Pt leaves with ride Normal [facility] Staphylococcus aureus.methic illin resistant isolateon 08-02-2023 MRSA isol Org specific cx Ql (Nose) Normal [facility] Comment on above: Performed By: #### 5 2969-3 ####JOLENE Cantu ([id number])[facility] ([facility])[address] [place] [address] Urinalysis complete W Reflex Culture panel (U)on 08-02-2023 Appearance (U) Clear Normal Clear [facility] Comment on above: Performed By: #### 5 8077-9 ####JOLENE RONQUILLO L ([id number])[facility] ([facility])[address] [place] [address] Bilirubin (U) [Mass/Vol] Negative Normal NEGATIVE [facility] Comment on above: Performed By: #### 5 8077-9 ####JOLENE RONQUILLO L ([id number])[facility] ([facility])[address] [place] [address] Color (U) Colorless Normal Light-Yellow , Yellow, Dark-Yellow [facility] Comment on above: Performed By: #### 5 8077-9 ####JOLENE RONQUILLO L ([id number])[facility] ([facility])[address] [facility] [place] [address] Glucose Auto test strip (U) [Mass/Vol] Normal Normal Normal [facility] Comment on above: Performed By: #### 5 8077-9 ####JOLENE RONQUILLO L ([id number])[facility] ([facility])[address] [place] [address] Ketones (U) [Mass/Vol] Negative Normal NEGATIVE [facility] Comment on above: Performed By: #### 5 8077-9 ####JOLENE RONQUILLO L ([id number])[facility] ([facility])[address] [place] [address] Leukocyte esterase Auto test strip Ql (U) Negative Normal NEGATIVE [facility] Comment on above: Performed By: #### 5 8077-9 ####JOLENE WELSHMOALEXUSER L ([id number])[facility] ([facility])[address] [place] [address] Nitrite Auto test strip Ql (U) Negative Normal NEGATIVE [facility] Comment on above: Performed By: #### 5 8077-9 ####JOLENE Cantu ([id number])[facility] ([facility])[id number] [place] [address] pH (U) 7.5 [pH] Normal 5.0, 5.5, 6.0, 6.5, 7.0, 7.5, 8.[address] [facility] Comment on above: Performed By: #### 5 8077-9 ####JOLENE Cantu ([id number])[facility] ([facility])[id number] [place] [address] Protein (U) [Mass/Vol] Negative Normal NEGAT ALEXANDRE, 10 (TRACE), 20 (TRACE) [facility] Comment on above: Performed By: #### 5 8077-9 ####JOLENE Cantu ([id number])[facility] ([facility])[address] [place] [address] RBC (U) [#/Vol] Negative Normal NEGATIVE [facility] Comment on above: Performed By: #### 5 8077-9 ####JOLENE Cantu ([id number])[facility] ([facility])[address] [place] [address] Specific gravity (U) [Rel density] 1.007 Normal 1.005-1.[address] [facility] Comment on above: Performed By: #### 5 8077-9 ####JOLENE Cantu ([id number])[facility] ([facility])[id number] [place] [address] Urobilinogen (U) [Mass/Vol] Normal Normal Normal [facility] Comment on above: Performed By: #### 5 8077-9 ####JOLENE Cantu ([id number])[facility] ([facility])[address] [place] [address] Consent for Treatmenton 0 Consent for Treatment [id number]#1.00T IFF Normal [facility] Discharge Instructionson Discharge Instructions [id number]#1.00T IFF Normal [facility] ED Clinical Summaryon 2023 ED Clinical Summary Normal [facility] ED Note-Physicianon 07-31-19 ED Note-Physician Normal [facility] Comment on above: Result Comment: Elec tronically Signed By: Landon Tidwell PA-C.br\Date and Time Signed: 07/31/23 15:32 EDT\.br\Electronically Co-Signed By: Balbina Bryant M.D..br\Date and Time Co-Signed: 07/31/23 15:51 EDT ED Patient Education Noteon 07-31-2023 ED Patient Education Note Normal [facility] ED Patient Summaryon 024 ED Patient Summary Normal [facility] Consent To Leave AMAon 07-25 Consent To Leave AMA [id number]#1.00T IFF Normal [facility] Consent for Treatmenton Consent for Treatment [id number]#1.00T IFF Normal [facility] Discharge Instructionson Discharge Instructions [id number]#1.00T IFF Normal [facility] ED Clinical Summaryon 2023 ED Clinical Summary Normal [facility] ED Note-Physicianon 07-26-19 ED Note-Physician Normal [facility] Comment on above: Result Comment: Elec tronically Signed By: Jorge Mcintosh DO\.br\Date and Time Signed: 07/26/23 11:28 EDT ED Patient Education Noteon 07-26-2023 ED Patient Education Note Normal [facility] ED Patient Summaryon 024 ED Patient Summary Normal [facility] Consultation Noteon 07-24-19 Consultation Note [id number]#1.00T IFF Normal [facility] Consultation Note [id number]#1.00T IFF Normal [facility] Family Medicine Office/Clini c Noteon 07-23-2023 Family Medicine Office/Clinic Note Normal [facility] Comment on above: Result Comment: Elec tronically Signed By: Cheyanne Rincon\Adrienbr\Date and Time Signed: 07/23/23 14:37 EDT Physician Referralon 024 Physician Referral [id number]#1.00T IFF Normal [facility] CT Abdomen/Pelvis w/o Contra ston 07-21-2023 CT Abdomen/Pelvis w/o Contrast Normal [facility] ED Note-Physicianon 07-21-19 ED Note-Physician Normal [facility] Comment on above: Result Comment: Elec tronically Signed By: Balbina Bryant M.D.\Adrienbr\Date and Time Signed: 07/21/23 04:24 EDT XR Chest Single Viewon 07-20 XR Chest Single View Normal [facility] BMPon 07-20-2023 Anion gap [Moles/Vol] 10 mmol/L Normal 6-16 [facility] Comment on above: Performed By: #### 2 541018, 6790966, 63277711, 23526447, 82369964, 5646001, 63261996 ####[facility] [address] [place] [address] Calcium [Mass/Vol] 8.2 mg/dL Low 8.9-11.1 [facility] Comment on above: Performed By: #### 2 965004, 4327170, 02273256, 51778645, 18324041, 4001934, 99663670 ####[facility] [address] [place] [address] Chloride [Moles/Vol] 105 mmol/L Normal 101-111 [facility] Comment on above: Performed By: #### 2 202581, 9734957, 16399269, 78919257, 77355410, 9552632, 93988063 ####[facility] [address] [place] [address] CO2 [Moles/Vol] 26 mmol/L Normal 21-31 [facility] Comment on above: Performed By: #### 2 079552, 3351076, 75201444, 10104750, 54106088, 1220574, 30000257 ####[facility] [address] [place] [address] Creatinine [Mass/Vol] 0.7 mg/dL Normal 0.5-1.3 [facility] Comment on above: Performed By: #### 2 573383, 6324056, 40145929, 14907745, 77939934, 1914218, 85351446 ####[facility] [address] [place] [address] Glucose [Mass/Vol] 122 mg/dL Normal 55-199 [facility] Comment on above: Performed By: #### 2 441577, 7896945, 20102607, 56314447, 22381635, 5541010, 46131118 ####[facility] [address] [place] [address] Potassium [Moles/Vol] 4.0 mmol/L Normal 3.5-5.3 [facility] Comment on above: Performed By: #### 2 041171, 8752268, 51217840, 40297235, 79647573, 5701741, 88119247 ####[facility] [address] [place] [address] Sodium [Moles/Vol] 137 mmol/L Normal 135-145 [facility] Comment on above: Performed By: #### 2 409487, 2366338, 31049597, 69905394, 02912342, 0376191, 24897901 ####[facility] [address] [place] [address] Urea nitrogen [Mass/Vol] 17 mg/dL Normal 5-21 [facility] Comment on above: Performed By: #### 2 005726, 2414510, 02423633, 71175529, 24747443, 1695326, 94653895 ####[facility] [address] [place] [address] Urea nitrogen/Creatinine [Mass ratio] 24 No Units High 10-20 [facility] Comment on above: Performed By: #### 2 488183, 2093728, 83352126, 68174371, 24154309, 8325162, 86296196 ####[facility] [address] [place] [address] BNPon 07-20-2023 Natriuretic peptide B (Bld) [Mass/Vol] 25 pg/mL Normal 5-80 [facility] Comment on above: Performed By: #### 2 214067, 5545693, 85121901, 03066906, 09818112, 8971573, 78478422 ####[facility] [address] [place] [address] CBC w/ Auto Diffon 4 Basophils/100 WBC (Bld) 0.4 % Normal 0.0-2.0 [facility] Comment on above: Performed By: #### 2 503225, 6628882, 40878663, 83957876, 60223447, 4354017, 46338003 ####[facility] [address] [place] [address] Basophils/Leukocytes Auto (Bld) [Pure # fraction] 0.0 E9/L Normal 0.0-0.2 [facility] Comment on above: Performed By: #### 2 369790, 2969134, 59288866, 91834180, 70425520, 4000853, 53243691 ####[facility] [address] [place] [address] Eosinophils (Bld) [#/Vol] 0.2 E9/L Normal 0.0-0.5 [facility] Comment on above: Performed By: #### 2 801920, 1919264, 20871629, 91259627, 46685909, 8827234, 13134153 ####[place] [address] [place] [address] Eosinophils/100 WBC (Bld) 1.3 % Normal 0.0-8.0 [facility] Comment on above: Performed By: #### 2 192169, 1918215, 51652215, 01544791, 45137525, 2738091, 30610503 ####[place] [place] [address] Erythrocyte distribution width (RBC) [Ratio] 13.3 % Normal 10.9-14.2 [facility] Comment on above: Performed By: #### 2 606202, 7492090, 74459352, 43478428, 01402470, 1964037, 74504529 ####[address] [address] Hematocrit (Bld) [Volume fraction] 38.3 % Normal 34.0-46.0 [facility] Comment on above: Performed By: #### 2 178813, 5327924, 73215332, 88659284, 58662693, 7848009, 29882959 ####[place] [place] [address] Hemoglobin (Bld) [Mass/Vol] 12.9 g/dL Normal 12.0-16.0 [facility] Comment on above: Performed By: #### 2 443195, 6296233, 82828198, 85796878, 14878980, 0065696, 65955259 ####[address] [place] [place] [address] Lymphocytes (Bld) [#/Vol] 2.2 E9/L Normal 1.0-4.0 [facility] Comment on above: Performed By: #### 2 077606, 2475674, 92418515, 81052930, 23971219, 0423019, 76355434 ####[facility] [address] [place] [address] Lymphocytes/100 WBC (Bld) 18.2 % Normal 14.0-50.0 [facility] Comment on above: Performed By: #### 2 706418, 4954605, 47732806, 58680788, 98343445, 4811766, 70975629 ####[facility] [address] [place] [address] MCH (RBC) [Entitic mass] 31.7 pg Normal 27.0-34.0 [facility] Comment on above: Performed By: #### 2 159348, 0434376, 61818606, 17176933, 03242750, 2373169, 82789028 ####[address] [address] MCHC (RBC) [Mass/Vol] 33.8 g/dL Normal 31.4-36.0 [facility] Comment on above: Performed By: #### 2 881205, 2445979, 39654112, 46361450, 20155126, 6344180, 14298285 ####[address] [address] MCV (RBC) [Entitic vol] 93.8 fL Normal 80.0-100.0 [facility] Comment on above: Performed By: #### 2 038926, 4670336, 44737913, 86896271, 45930273, 4732668, 96349730 ####[address] [address] Monocytes (Bld) [#/Vol] 0.6 E9/L Normal 0.2-1.0 [facility] Comment on above: Performed By: #### 2 977576, 8404473, 14760826, 50091167, 72028833, 1348855, 33590646 ####[address] [address] Neutrophils (Bld) [#/Vol] 9.0 E9/L High 2.0-7.5 [facility] Comment on above: Performed By: #### 2 133929, 4170639, 77106255, 56214514, 49849554, 8944510, 91606106 ####[facility] [address] [place] [address] Neutrophils/100 WBC (Bld) 75.2 % High 36.0-75.0 [facility] Comment on above: Performed By: #### 2 563149, 1363592, 83619698, 43746220, 31254513, 7895159, 85509359 ####[place] [place] [address] Platelet mean volume (Bld) [Entitic vol] 8.9 fL Normal 6.4-10.8 [facility] Comment on above: Performed By: #### 2 945255, 6782712, 54667991, 72663694, 81869279, 3557416, 72598974 ####[address] [address] Platelets (Bld) [#/Vol] 245.0 E9/L Normal 150.0-500.0 [facility] Comment on above: Performed By: #### 2 353412, 7720381, 66377908, 96822201, 28722006, 4921355, 96666565 ####[address] [address] RBC (Bld) [#/Vol] 4.1 E12/L Low 4.3-5.9 [facility] Comment on above: Performed By: #### 2 863152, 4229358, 53872018, 07370182, 48198628, 9349391, 17778682 ####[address] [address] WBC corrected for nucl RBC Auto (Bld) [#/Vol] 11.9 E9/L High 4.0-11.0 [facility] Comment on above: Performed By: #### 2 218249, 1237592, 89700816, 65514570, 18842288, 5019218, 86689267 ####[facility] [address] [place] [address] Consent for Treatmenton 06-24 Consent for Treatment [id number]#1.00T IFF Normal [facility] Discharge Instructionson Discharge Instructions [id number]#1.00T IFF Normal [facility] ED Clinical Summaryon 2023 ED Clinical Summary Normal [facility] ED Patient Education Noteon 07-20-2023 ED Patient Education Note Normal [facility] ED Patient Summaryon 024 ED Patient Summary Normal [facility] Hep Func Panelon 07-20-2023 Albumin [Mass/Vol] 3.8 g/dL Normal 3.3-5.0 [facility] Comment on above: Performed By: #### 2 850748, 1257966, 24945805, 47584199, 39187253, 9166545, 45040639 ####[facility] [address] [place] [address] Albumin/Globulin (S) [Mass conc ratio] 1.4 Normal 1.1-2.2 [facility] Comment on above: Performed By: #### 2 060993, 3489596, 90593133, 89496766, 61306830, 7333585, 56741932 ####[facility] [address] [place] [address] ALP [Catalytic activity/Vol] 68 Int._Unit/L Normal 21-98 [facility] Comment on above: Performed By: #### 2 330782, 7236194, 16180220, 93042042, 93171298, 0284729, 16206869 ####[facility] [address] [place] [address] ALT No additional P-5'-P [Catalytic activity/Vol] 22 Int._Unit/L Normal 6-46 [facility] Comment on above: Performed By: #### 2 969549, 3533359, 94684261, 34820752, 65223807, 2634549, 34465815 ####[facility] [address] [place] [address] AST [Catalytic activity/Vol] 26 Int._Unit/L Normal 5-43 [facility] Comment on above: Performed By: #### 2 070519, 6442464, 11324294, 09307197, 55112003, 6336198, 21375311 ####[facility] [address] [place] [address] Bilirubin [Mass/Vol] 0.3 mg/dL Normal 0.0-1.1 [facility] Comment on above: Performed By: #### 2 388479, 8468616, 65563374, 49635077, 39726245, 0309950, 80018864 ####[facility] [address] [place], [place] [address] Bilirubin.direct [Mass/Vol] 0.1 mg/dL Normal 0.0-0.4 [facility] Comment on above: Performed By: #### 2 105186, 1816675, 16947840, 55543927, 82713784, 7651289, 20986898 ####[facility] [address] [place] [address] Bilirubin.indirect [Mass or moles/Vol] 0.2 mg/dL Normal 0.1-0.9 [facility] Comment on above: Performed By: #### 2 171069, 7187677, 24175974, 49711279, 07401540, 0750387, 51417351 ####[facility] [address] [place] [address] Globulin (S) [Mass/Vol] 2.8 g/dL Normal 1.4-4.0 [facility] Comment on above: Performed By: #### 2 009417, 0623845, 96712809, 43696905, 32232913, 5079927, 63982779 ####[facility] [address] [place] [address] Protein [Mass/Vol] 6.6 g/dL Normal 6.0-7.8 [facility] Comment on above: Performed By: #### 2 679629, 9887826, 53312558, 03304096, 25097821, 5257642, 34283698 ####[facility] [address] [place] [address] PT & PTTon 07-20-2023 aPTT Coag (PPP) [Time] 33.9 second(s) Normal 25.1-36.5 [facility] Comment on above: Result Comment: Para [...] the same coagulation reagent and instrumentation as [facility] Currently there are no coagulation studies available worldwide for children to 14 days, and no normal ranges. Heparin therapeutic range (represented by Anti-Factor Xa activity of 0.2 - 0.4 U/mL) corresponds to PTT of 56.6 - 109.0 sec. Performed By: #### 2 602135, 8268124, 33108385, 04276624, 31150197, 7163481, 77665293 ####[facility] [address] [place] [address] INR Coag (PPP) [Relative time] 0.98 {INR} Invalid Interpretation Code [facility] Comment on above: Result Comment: INR results are specifically intended to assess patients stabilized on long-term Anticoagulation therapy suggested INR?s ?Less Intensive Anticoagulation? 2.0 ? 3.0Conventional Range 3.0 ? 4.5 Performed By: #### 2 777313, 7602856, 19547216, 83327527, 86894287, 9339044, 23217680 ####[facility] [address] [place] [address] PT Coag (PPP) [Time] 11.0 second(s) Normal 9.4-12.5 [facility] Comment on above: Result Comment: 15 [...] the same coagulation reagent and instrumentation as [facility]. Currently there are no coagulation studies available worldwide for children to 14 days, and no normal ranges. Performed By: #### 2 215436, 0007568, 77058032, 68099249, 78360388, 5140604, 93876364 ####[facility] [address] [place] [address] RAD - Preliminary Cat Scan R eporton 07-20-2023 RAD - Preliminary Cat Scan Report [id number]#1.00T IFF Normal [facility] Troponin 0 Hr.on 07-20-2023 Troponin 11.90 pg/mL Normal 10.10-27.10 [facility] Comment on above: Result Comment: The 95% CI (Confidence Interval) PPV (Positive Predictive Value) for myocardial infarction in females is 38 pg/mL, in males 51 pg/mL. The results should be used in conjunction with clinical conditions of myocardial infarction.(Access High Sensitivity Troponin I Instructions For Use, Katlyn Lampasas, October 2017) Performed By: #### 2 886895, 2157290, 93602506, 46099120, 96047079, 2096132, 36481156 ####[facility] [address] [place] [address] Troponin 1 Hr.on 07-20-2023 Troponin 2.50 pg/mL Low 10.10-27.10 [facility] Comment on above: Order Comment: to be drawn at 1939. [id number] 07/20/2023 18:47:40 EDT Result Comment: The 95% CI (Confidence Interval) PPV (Positive Predictive Value) for myocardial infarction in females is 38 pg/mL, in males 51 pg/mL. The results should be used in conjunction with clinical conditions of myocardial infarction.(Access High Sensitivity Troponin I Instructions For Use, [employer], October 2017) Performed By: #### 1 2997045 ####[address] [place] [place] [address] eGFRon 07-20-2023 eGFR 108 mL/min/1.73 m2 Normal >=59 [facility] Comment on above: Order Comment: Order added by Discern Expert. Performed By: #### 2 751914, 3727748, 68621981, 83498248, 99925430, 7959518, 89287861 ####[address] [place] [address] Outside Records Officeon Outside Records Office [id number]#1.00 TIFF Normal [facility] Ambulatory Visit Summaryon 0 07-17-2023 Ambulatory Visit Summary Invalid Interpretation Code Weight gain [facility] Auth for Release of Medical Recordson 07-17-2023 Auth for Release of Medical Records [id number]#1.00T IFF Normal [facility] Formson 07-17-2023 Forms [id number]#1.00T IFF Normal [facility] Patient Educationon 07-17-19 Patient Education Normal [facility] Outside Records Officeon Outside Records Office [id number]#1.00 TIFF Normal [facility] Outside Records Office [id number]#1.00 TIFF Normal [facility] Consent for Treatmenton 06-24 Consent for Treatment [id number]#1.00 TIFF Normal [facility] Consultation Noteon 07-15-19 Consultation Note Normal [facility] Comment on above: Result Comment: Elec tronically Signed By: Joao MILES, Dory\.br\Date and Time Signed: 07/15/23 14:14 EDT HIPAA Forms Officeon 024 HIPAA Forms Office [id number]#1.00 TIFF Normal [facility] Legal Correspondence Officeo n 07-15-2023 Legal Correspondence Office [id number]#1.00 TIFF Normal [facility] Legal Correspondence Office [id number]#1.00 TIFF Normal [facility] Office/Clinic Note-Physician on 07-15-2023 Office/Clinic Note-Physician [id number]#1.00 TIFF Normal [facility] Patient Correspondenceon Patient Correspondence [id number]#1.00 TIFF Normal [facility] Patient Correspondence [id number]#1.00 TIFF Normal [facility] Patient Correspondence [id number]#1.00 TIFF Normal [facility] Patient Correspondence [id number]#1.00 TIFF Normal [facility] Patient Correspondence [id number]#1.00 TIFF Normal [facility] Patient History Officeon Patient History Office [id number]#1.[address] [facility] Release of Records Officeon 07-15-2023 Release of Records Office [id number]#1.00 TIFF Normal [facility] Release of Records Office [id number]#1.[address] [facility] Consent for Treatmenton 06-24 Consent for Treatment [id number]#1.00T IFF [facility] Discharge Instructionson Discharge Instructions [id number]#1.[address] [facility] ED Clinical Summaryon 2023 ED Clinical Summary Normal [facility] ED Note-Physicianon 07-14-19 ED Note-Physician [facility] Comment on above: Result Comment: Elec tronically Signed By: Angelic Reece PA-C\.br\Date and Time Signed: 07/14/23 12:06 EDT\.br\Electronically Co-Signed By: Nikhil Tubbs DO\.br\Date and Time Co-Signed: 07/14/23 13:59 EDT ED Patient Education Noteon 07-14-2023 ED Patient Education Note [facility] ED Patient Summaryon 024 ED Patient Summary [facility] Consent for Treatmenton 06-23 Consent for Treatment [id number]#1.00T IFF [facility] Discharge Instructionson Discharge Instructions [id number]#1.00TI FF Normal [facility] ED Clinical Summaryon 2023 ED Clinical Summary Normal [facility] ED Note-Physicianon 07-11-19 ED Note-Physician Normal [facility] Comment on above: Result Comment: Elec tronically Signed By: Balbina Bryant M.D.\Adrienbr\Date and Time Signed: 07/11/23 10:11 EDT ED Patient Education Noteon 07-11-2023 ED Patient Education Note Normal [facility] ED Patient Summaryon ED Patient Summary Normal [facility] Clipboard Summaryon 07-08-19 Clipboard Summary {[id number]-4 a-8 [id number]- 37}XML Normal [facility] Discharge Instructionson Discharge Instructions [id number]#1.00 TIFF Normal [facility] Consent for Treatmenton 06-23 Consent for Treatment [id number]#1.00T IFF Normal [facility] ED Clinical Summaryon 2023 ED Clinical Summary Normal [facility] ED Note-Physicianon 07-06-19 ED Note-Physician Normal [facility] Comment on above: Result Comment: Elec tronically Signed By: Pedro Pablo Fletcher DObr\Date and Time Signed: 07/06/23 19:43 EDT ED Patient Education Noteon 07-06-2023 ED Patient Education Note Normal [facility] ED Patient Summaryon 024 ED Patient Summary Normal [facility] Consent for Treatmenton Consent for Treatment [id number]#1.00T IFF Normal [facility] Discharge Instructionson Discharge Instructions [id number]#1.00 TIFF Normal [facility] ED Clinical Summaryon 2023 ED Clinical Summary Normal Osbaldo martinez [facility] ED Note-Physicianon 06-29-19 ED Note-Physician Normal [facility] Comment on above: Result Comment: Elec tronically Signed By: Landon Tidwell PA-C\.br\Date and Time Signed: 06/29/23 15:22 EDT\.br\Electronically Co-Signed By: Nikhil Tubbs DO\.br\Date and Time Co-Signed: 06/29/23 15:52 EDT ED Patient Education Noteon 06-29-2023 ED Patient Education Note Normal [facility] ED Patient Summaryon 024 ED Patient Summary Normal [facility] .HCV RT-PCR, Quant (Non-Grap h)on 06-27-2023 Diagnostic impression [employer] Sky (Unsp spec) [Interp] Comment Invalid Interpretation Code [facility] Comment on above: Result Comment: Posi tive HCV antibody screen without the presence of HCV RNAis consistent with a resolved past infection or a falsepositive HCV antibody. Consider repeat testing after onemonth.Performed at: [facility] [id number] MD Bhargav Lamar Performed By: #### 2 [id number], [id number], [id number] ####[facility] [address] [place] [address] HCV RNA LINDSEY+probe Qn Not detected Invalid Interpretation Code [facility] Comment on above: Performed By: #### 2 398955, [id number], [id number] ####[facility] [address] [place] [address] Reference Lab Test Reference Range Comment Invalid Interpretation Code [facility] Comment on above: Result Comment: The quantitative range of this assay is 15 IU/mL to 100 million IU/mL. Performed By: #### 2 724708, [id number], [id number] ####[facility] [address] [place] [address] Consent for Treatmenton Consent for Treatment [id number]#1.00T IFF Normal [facility] Discharge Instructionson Discharge Instructions [id number]#1.00 TIFF Normal [facility] ED Clinical Summaryon 2023 ED Clinical Summary Normal Osbaldo martinez [facility] ED Note-Physicianon 06-27-19 ED Note-Physician Normal [facility] Comment on above: Result Comment: Elec tronically Signed By: Kristie Boss PA-C\.br\Date and Time Signed: 06/27/23 12:40 EDT\.br\Electronically Co-Signed By: Nikhil Tubbs DO.br\Date and Time Co-Signed: 06/27/23 14:49 EDT ED Patient Education Noteon 06-27-2023 ED Patient Education Note Normal [facility] ED Patient Summaryon ED Patient Summary Normal [facility] HCV Antibody RFX to Quant PC Fernando 06-27-2023 HCV IgG IA Ql Reactive Abnormal Non Reactive [facility] Comment on above: Result Comment: Perf ormed at: [id number] [place], [place] [id number] PhD Pantera Alonso Performed By: #### 2 350788, [id number], [id number] ####[facility] [address] [place] [address] Hep Bs Agon 06-27-2023 HBV surface Ag IA Ql Negative Invalid Interpretation Code Negative [facility] Comment on above: Result Comment: Perf ormed at: [facility] [place], [place] [id number] PhD [employer]tera Alonso Performed By: #### 2 848144, [id number], [id number] ####[facility] [address] [place] [address] Consent for Treatmenton Consent for Treatment [id number]#1.00T IFF Normal [facility] Discharge Instructionson Discharge Instructions [id number]#1.00 TIFF Normal [facility] ED Clinical Summaryon 2023 ED Clinical Summary Normal Osbaldo martinez [facility] ED Note-Physicianon 06-24-19 ED Note-Physician Normal [facility] Comment on above: Result Comment: Elec tronically Signed By: Balbina Bryant M.D.br\Date and Time Signed: 06/24/23 12:17 EDT ED Patient Education Noteon 06-24-2023 ED Patient Education Note Normal [facility] ED Patient Summaryon 024 ED Patient Summary Normal [facility] MRI Spine Lumbar w/o Contras ton 06-24-2023 MRI Spine Lumbar w/o Contrast Normal [facility] RAD - MRI Screening Formon 0 06-24-2023 RAD - MRI Screening Form [id number]#1.00T IFF Normal [facility] CT Abdomen/Pelvis w/ Contras ton 06-23-2023 CT Abdomen/Pelvis w/ Contrast Normal [facility] CBC w/ Auto Diffon Basophils/100 WBC (Bld) 0.1 % Normal 0.0-2.0 [facility] Comment on above: Performed By: #### 1 6773062, 4892511, 5607713, 4913110, 2555641, 71608059, 61029757, 3697899 ####[facility] [address] [place] [address] Basophils/Leukocytes Auto (Bld) [Pure # fraction] 0.0 E9/L Normal 0.0-0.2 [facility] Comment on above: Performed By: #### 1 7684516, 0349303, 0942008, 8394413, 4101652, 15970483, 46711187, 5962714 ####[facility] [address] [place] [address] Eosinophils (Bld) [#/Vol] 0.1 E9/L Normal 0.0-0.5 [facility] Comment on above: Performed By: #### 1 7843434, 5916576, 2451794, 8724660, 7779059, 60917361, 39374392, 1828355 ####[address] [place] [address] Eosinophils/100 WBC (Bld) 0.9 % Normal 0.0-8.0 [facility] Comment on above: Performed By: #### 1 8910453, 9673503, 4598218, 4751673, 5609957, 43511032, 10639093, 7582186 ####[address] [place] [address] Erythrocyte distribution width (RBC) [Ratio] 13.3 % Normal 10.9-14.2 [facility] Comment on above: Performed By: #### 1 5169298, 7683260, 7151675, 3969899, 6759474, 67169128, 01987286, 9072260 ####[address] [address] Hematocrit (Bld) [Volume fraction] 45.0 % Normal 34.0-46.0 [facility] Comment on above: Performed By: #### 1 1743113, 2311570, 9581793, 3440525, 1899098, 73471784, 14889891, 9863991 ####[address] [place] [address] Hemoglobin (Bld) [Mass/Vol] 15.1 g/dL Normal 12.0-16.0 [facility] Comment on above: Performed By: #### 1 2934425, 9985745, 4950870, 7556358, 1148352, 63835401, 17977792, 6647211 ####[address] [place] [address] Lymphocytes (Bld) [#/Vol] 0.4 E9/L Low 1.0-4.0 [facility] Comment on above: Performed By: #### 1 1973426, 6100708, 4884062, 5522279, 8434566, 38554398, 49993331, 3823839 ####[facility] [address] [place] [address] Lymphocytes/100 WBC (Bld) 3.7 % Low 14.0-50.0 [facility] Comment on above: Performed By: #### 1 1837992, 0153303, 3156109, 9983290, 7092943, 89375944, 90501991, 6515170 ####[facility] [address] [place] [address] MCH (RBC) [Entitic mass] 31.5 pg Normal 27.0-34.0 [facility] Comment on above: Performed By: #### 1 7981311, 0427529, 4404822, 8460858, 4950075, 04637223, 73497235, 7481910 ####[address] [address] MCHC (RBC) [Mass/Vol] 33.5 g/dL Normal 31.4-36.0 [facility] Comment on above: Performed By: #### 1 6492917, 5002413, 2486371, 5073167, 0683166, 04768855, 36165955, 9008023 ####[address] [place] [address] MCV (RBC) [Entitic vol] 94.2 fL Normal 80.0-100.0 [facility] Comment on above: Performed By: #### 1 0090018, 5084445, 1680146, 7000384, 4894719, 94341949, 56910202, 0893497 ####[facility] [address] [place] [address] Monocytes (Bld) [#/Vol] 0.3 E9/L Normal 0.2-1.0 [facility] Comment on above: Performed By: #### 1 0582195, 0745335, 9244705, 1164094, 3421380, 78162562, 09648225, 2081684 ####[facility] [address] [place] [address] Neutrophils (Bld) [#/Vol] 9.5 E9/L High 2.0-7.5 [facility] Comment on above: Performed By: #### 1 4761727, 0860523, 7982445, 4088287, 1062871, 86872920, 73569743, 3539536 ####[address] [place] [address] Neutrophils/100 WBC (Bld) 92.1 % High 36.0-75.0 [facility] Comment on above: Performed By: #### 1 6002226, 5531292, 0406951, 9169403, 2975287, 52808919, 06211215, 1019569 ####[address] [address] Platelet 308.0 E9/L Normal 150.0-500.0 [facility] Comment on above: Performed By: #### 1 6702818, 3175491, 7199941, 7265766, 2054522, 76362764, 32048817, 0951114 ####[address] [place] [address] Platelet mean volume (Bld) [Entitic vol] 8.7 fL Normal 6.4-10.8 [facility] Comment on above: Performed By: #### 1 7636016, 7269693, 2233181, 6041783, 9249957, 36211582, 77889762, 3359474 ####[facility] [address] [place] [address] RBC (Bld) [#/Vol] 4.8 E12/L Normal 4.3-5.9 [facility] Comment on above: Performed By: #### 1 9212387, 3217067, 6503647, 2248349, 2198074, 92625986, 80540537, 8664437 ####[address] [place] [address] WBC corrected for nucl RBC Auto (Bld) [#/Vol] 10.3 E9/L Normal 4.0-11.0 [facility] Comment on above: Performed By: #### 1 1260135, 8143569, 0496800, 3940034, 5823547, 36555338, 79888691, 0322755 ####[facility] [address] [place] [address] CHEMISTRYOrdered By: Chiquita saldana on 06-22-2023 Lactic [...] Sensitivity Troponin I Instructions For Use, [facility], October 2017) Urea nitrogen [Mass/Vol] 13 mg/dL Normal 5 - 21 mg/dL Remisol Chem Urea nitrogen/Creatinine [Mass ratio] 19 mg/mg Normal 10 - 20 Remisol Chem CMPon 06-22-2023 Albumin [Mass/Vol] 4.2 g/dL Normal 3.3-5.0 [facility] Comment on above: Performed By: #### 1 2762491, 1102043, 7817841, 4921319, 5789920, 99200637, 42335324, 6950998 ####[facility] [address] [place] [address] Albumin/Globulin (S) [Mass conc ratio] 1.2 Normal 1.1-2.2 [facility] Comment on above: Performed By: #### 1 5644868, 1002073, 4032000, 4932044, 2988542, 68807908, 38049470, 1241829 ####[facility] [address] [place] [address] ALP [Catalytic activity/Vol] 74 Int._Unit/L Normal 21-98 [facility] Comment on above: Performed By: #### 1 0306189, 8513280, 9293230, 9307743, 1147600, 36197708, 08231358, 8943812 ####[facility] [address] [place] [address] ALT No additional P-5'-P [Catalytic activity/Vol] 17 Int._Unit/L Normal 6-46 [facility] Comment on above: Performed By: #### 1 3816233, 4022355, 2723970, 7424474, 2080879, 44803511, 81662421, 0406505 ####[facility] [address] [place] [address] Anion gap [Moles/Vol] 13 mmol/L Normal 6-16 [facility] Comment on above: Performed By: #### 1 0949406, 9408863, 6662642, 7136894, 9298348, 07171348, 24942759, 7676531 ####[facility] [address] [place] [address] AST [Catalytic activity/Vol] 18 Int._Unit/L Normal 5-43 [facility] Comment on above: Performed By: #### 1 1696423, 5906685, 7082157, 1411819, 8077517, 48337233, 63120905, 3251466 ####[facility] [address] [place] [address] Bilirubin [Mass/Vol] 0.6 mg/dL Normal 0.0-1.1 [facility] Comment on above: Performed By: #### 1 8948048, 6916400, 9767718, 1672097, 3122111, 13987891, 62960110, 4366050 ####[facility] [address] [place] [address] Calcium [Mass/Vol] 8.3 mg/dL Low 8.9-11.1 [facility] Comment on above: Performed By: #### 1 4179958, 1433388, 1687451, 5499181, 6782466, 64730980, 00573820, 9149679 ####[facility] [address] [place] [address] Chloride [Moles/Vol] 106 mmol/L Normal 101-111 [facility] Comment on above: Performed By: #### 1 8103460, 2303028, 4057466, 8933055, 6020756, 24619200, 37430411, 5001415 ####[facility] [address] [place] [address] CO2 [Moles/Vol] 24 mmol/L Normal 21-31 [facility] Comment on above: Performed By: #### 1 5901861, 5875384, 0137257, 5617703, 7798232, 47589223, 24159147, 2612568 ####[facility] [address] [place] [address] Creatinine [Mass/Vol] 0.7 mg/dL Normal 0.5-1.3 [facility] Comment on above: Performed By: #### 1 3767218, 7750202, 1475411, 6757858, 0971588, 29078075, 93720998, 6073607 ####[facility] [address] [place] [address] Globulin (S) [Mass/Vol] 3.6 g/dL Normal 1.4-4.0 [facility] Comment on above: Performed By: #### 1 2889037, 0613431, 0872353, 2850101, 5368036, 63241879, 15950223, 3055651 ####[facility] [address] [place] [address] Glucose [Mass/Vol] 124 mg/dL Normal 55-199 [facility] Comment on above: Performed By: #### 1 6018187, 9075954, 1017814, 0377419, 8520685, 92401157, 81518461, 2524983 ####[facility] [address] [place] [address] Potassium [Moles/Vol] 3.9 mmol/L Normal 3.5-5.3 [facility] Comment on above: Performed By: #### 1 3088821, 6864471, 2936253, 8598829, 3121456, 47031870, 22765739, 7972002 ####[facility] [address] [place] [address] Protein [Mass/Vol] 7.8 g/dL Normal 6.0-7.8 [facility] Comment on above: Performed By: #### 1 8099583, 6528451, 3875866, 5787405, 3312865, 75500186, 20426108, 2559826 ####[facility] [address] [place] [address] Sodium [Moles/Vol] 139 mmol/L Normal 135-145 [facility] Comment on above: Performed By: #### 1 8112985, 5682371, 2497276, 0693043, 5779064, 21719281, 72729083, 7817490 ####[facility] [address] [place] [address] Urea nitrogen [Mass/Vol] 13 mg/dL Normal 5-21 [facility] Comment on above: Performed By: #### 1 6338925, 8675873, 8031868, 4840301, 6231783, 69655964, 07979477, 9791945 ####[facility] [address] [place] [address] Urea nitrogen/Creatinine [Mass ratio] 19 No Units Normal 10-20 [facility] Comment on above: Performed By: #### 1 8467205, 2642959, 8822036, 5234541, 1151826, 55803534, 38410552, 2714446 ####[facility] [address] [place] [address] COAGULATIONOrdered By: Nuvia Carrillo on 06-22-2023 aPTT Coag (PPP) [Time] 36.0 s Normal 25.1 - 36.5 second(s) [facility] [place] Comment on above: Interpretive Data: [...] obtained from a study by monet Zavala alAdrien prepared from 1437 samples obtained at 7 different centers using the same coagulation reagent and instrumentation as [facility] Currently there are no coagulation studies available worldwide for children to 14 days, and no normal ranges. Heparin therapeutic range (represented by Anti-Factor Xa activity of 0.2 - 0.4 U/mL) corresponds to PTT of 56.6 - 109.0 sec. INR Coag (PPP) [Relative time] 0.96 {INR} Invalid Interpretation Code [facility] Comment on above: Interpretive Data: I NR results are specifically intended to assess patients stabilized on long-term Anticoagulation therapy suggested INR s Less Intensive Anticoagulation 2.0 3.0 Conventional Range 3.0 4.5 PT Coag (PPP) [Time] 10.7 s Normal 9.4 - 1 2.5 second(s) [facility] Comment on above: Interpretive Data: 1 5 days - 4 weeks 1 - 5 months 6 -11 months 1 5 years 6 10 years 11 -17 years Mean: 11.2 (9.5 12.6) Mean: 11.0 (9.7 12.8) Mean: 11.0 (9.8 13.0) Mean: 11.3 (9.9 13.4) Mean: 11.7 (10.0 14.6) Mean: 11.8 (10.0 - 14.1) Pediatric Reference ranges were obtained from a study by monique Zavala prepared from 1437 samples obtained at 7 different centers using the same coagulation reagent and instrumentation as [facility]. Currently there are no coagulation studies available worldwide for children to 14 days, and no normal ranges. Consent for Treatment05-25 Consent for Treatment [id number]#1.00 TIFF Normal [facility] Consent for Treatment [id number]#1.00T IFF Normal [facility] Discharge Instructionson Discharge Instructions [id number]#1.00 TIFF Normal [facility] ED Clinical Summaryon 2023 ED Clinical Summary Normal [facility] ED Note-Physicianon 06-22-19 ED Note-Physician Normal [facility] Comment on above: Result Comment: Elec tronically Signed By: Susu Lamar PA-C\.br\Date and Time Signed: 06/22/23 15:59 EDT\.br\Electronically Co-Signed By: Nikhil Tubbs DO.br\Date and Time Co-Signed: 06/22/23 18:54 EDT ED Patient Education Noteon 06-22-2023 ED Patient Education Note Normal [facility] ED Patient Summaryon ED Patient Summary Normal [facility] HEMATOLOGYOrdered By: SYSTEM SYSTEM on 06-22-2023 [...] - 11.0 E9/L Remisol Heme HIV-1/2 [facility] HIV 1+2 Ab and HIV1 p24 Ag IA.rapid Nom (S/P/Bld) Negative Normal Negative [facility] Comment on above: Performed By: #### 8 [id number] ####[facility] [address] [place] [address] HIV 1+2 Ab+HIV1 p24 Ag IA Ql Non-Reactive Normal Non-Reactive [facility] Comment on above: Performed By: #### 8 [id number] ####[facility] [address] [place] [address] HIV Combo Internal Control Line Reactive Normal Reactive [facility] Comment on above: Performed By: #### 8 [id number] ####[facility] [address] [place] [address] HIV-1/2 Ag/Ab Combo Negative for HIV-1 and/or HIV-2 antibodies and HIV-1 p24 antigen. Normal Negative [facility] Influenza A&B Agon Influenzae A Ag Negative Normal Negative [facility] Comment on above: Performed By: #### 1 [id number], [id number] ####[facility] [address] [place] [address] Influenzae B Ag Negative Normal Negative [facility] Comment on above: Result Comment: Test sensitivity and specificity vary for age group, specimen type, antigen types, and prevalence of disease. Test results must be evaluated in conjunction with other clinical data available to the physician. Individuals who received nasally administered Influenza A vaccine may have positive test results up to 3 days after vaccination. Performed By: #### 1 [id number], [id number] ####[facility] [address] [place] [address] Lactic Acidon 06-22-2023 Lactic Acid Lvl 1.4 mmol/L Normal 0.5-2.2 [facility] Comment on above: Performed By: #### 1 [id number], 0250553, 4869229, 3898580, 6665435, 74585241, 44943650, 2567446 ####[facility] [address] [place] [address] Lipase Levelon 06-22-2023 Lipase [Catalytic activity/Vol] U/L Low 13-58 [facility] Comment on above: Performed By: #### 1 5695526, 6912169, 2424451, 9186919, 7994274, 31143822, 73831309, 6881410 ####[facility] [address] [place] [address] MICRO OTHER TESTSOrdered By: Allen Hansen on 06-22-2023 Influenzae A Ag Negative (06/22/23 2:59 PM) Normal Negative [facility] Sero Influenzae B Ag Negative 2 (06/22/23 2:59 PM) Normal Negative [facility] Sero Comment on above: Interpretive [...] NEG Ctl Pass (06/22/23 2:59 PM) Normal [facility] Man Sero Rapid COV Int POS Ctl Pass (06/22/23 2:59 PM) Normal [facility] Sero SARS-CoV+SARS-CoV-2 (COVID-19) Ag IA.rapid Ql (Resp) Not Detected 7 (06/22/23 2:59 PM) Normal Not Detected [facility] Sero Comment on above: Interpretive Data: T he Brainiac TV Veritor System for Rapid Detection of SARS-CoV-2 [...] 06-22-2023 Magnesium [Mass/Vol] 1.8 mg/dL Normal 1.3-2.4 [facility] Comment on above: Performed By: #### 1 5957031, 6494693, 1409447, 3646779, 3239607, 71210375, 70615959, 8315167 ####[facility] [address] [place] [address] PT & PTTon 06-22-2023 aPTT Coag (PPP) [Time] 36.0 second(s) Normal 25.1-36.5 [facility] Comment on above: Result Comment: Para [...] the same coagulation reagent and instrumentation as [facility] Currently there are no coagulation studies available worldwide for children to 14 days, and no normal ranges. Heparin therapeutic range (represented by Anti-Factor Xa activity of 0.2 - 0.4 U/mL) corresponds to PTT of 56.6 - 109.0 sec. Performed By: #### 1 0026886, 8747474, 5673667, 5848442, 6401761, 24180436, 62845424, 5114874 ####[facility] [address] [place] [address] INR Coag (PPP) [Relative time] 0.96 {INR} Invalid Interpretation Code [facility] Comment on above: Result Comment: INR results are specifically intended to assess patients stabilized on long-term Anticoagulation therapy suggested INR?s ?Less Intensive Anticoagulation? 2.0 ? 3.0Conventional Range 3.0 ? 4.5 Performed By: #### 1 2434745, 8487051, 1459921, 9099709, 8278190, 09836244, 56437456, 6650384 ####[facility] [address] [place] [address] PT Coag (PPP) [Time] 10.7 second(s) Normal 9.4-12.5 [facility] Comment on above: Result Comment: 15 [...] the same coagulation reagent and instrumentation as [facility] Currently there are no coagulation studies available worldwide for children to 14 days, and no normal ranges. Performed By: #### 1 2678286, 6952179, 5477524, 6436991, 9882864, 94902988, 74968786, 2966768 ####[facility] [address] [place] [address] Physician Orderon 06-22-2023 Physician Order [id number]#1.00 TIFF Normal [facility] RAD - Preliminary Cat Scan R eporton 06-22-2023 RAD - Preliminary Cat Scan Report [id number]#1.00 TIFF Normal [facility] Rapid COVID Antigen ([facility])on 06-22-2023 Rapid COV Int NEG Ctl Pass Normal Fis her [facility] Comment on above: Performed By: #### 1 [id number], [id number] ####[facility] [address] [place] [address] Rapid COV Int POS Ctl Pass Normal Fis [facility] Comment on above: Performed By: #### 1 0179437, [id number] ####[facility] [address] [place] [address] SARS-CoV+SARS-CoV-2 (COVID-19) Ag IA.rapid Ql (Resp) Not detected Normal Not Detected [facility] Comment on above: Result Comment: The M-DAQ System for Rapid Detection of SARS-CoV-2 is [...] For in vitro diagnostic use. In the [facility], only for use under an Emergency Use [...] or revoked sooner. Performed By: #### 1 3222216, [id number] ####[address] [place] [address] Troponin 0 Hr.on 06-22-2023 Troponin 3.10 pg/mL Low 10.10-27.10 [facility] Comment on above: Result Comment: The 95% CI (Confidence Interval) PPV (Positive Predictive Value) for myocardial infarction in females is 38 pg/mL, in males 51 pg/mL. The results should be used in conjunction with clinical conditions of myocardial infarction.(Access High Sensitivity Troponin I Instructions For Use, [employer], October 2017) Performed By: #### 1 2277084, 0641033, 3805565, 2253794, 6487354, 41153760, 77850537, 4015416 ####[facility] [address] [place] [address] UA with Cult Rflxon 06-22-19 24 Color (U) Yellow Normal Yellow [facility] Comment on above: Result Comment: Micr oscopic readings are only performed on those samples that meet specific criteria set forth by [facility]. Performed By: #### 4 [id number] ####[facility] [address] [place] [address] Glucose (U) [Mass/Vol] Negative Normal Negative [facility] Comment on above: Performed By: #### 4 [id number] ####[facility] [address] [place] [address] Ketones Ql (U) Negative Normal Negative [facility] Comment on above: Performed By: #### 4 [id number] ####[facility] [address] [place] [address] UA Blood Negative Normal Negative [facility] Comment on above: Performed By: #### 4 [id number] ####[facility] [address] [facility] [place] [address] UA Clarity Clear Normal Clear [facility] Comment on above: Performed By: #### 4 [id number] ####[facility] [address] [facility] [address] UA Leuk Est Negative Normal Negative [facility] Comment on above: Performed By: #### 4 [id number] ####[facility] [address] [facility] [place] [address] UA Nitrite Negative Normal Negative [facility] Comment on above: Performed By: #### 4 [id number] ####[facility] [address] [facility] [place] [address] UA pH 7.0 Invalid Interpretation Code 5.0-9.0 [facility] Comment on above: Performed By: #### 4 [id number] ####[address] [place] [address] UA Protein Trace Abnormal Negative [facility] Comment on above: Performed By: #### 4 [id number] ####[facility] [address] [place] [address], [place] [address] UA Spec Grav 1.028 Invalid Interpretation Code 1.005-1.030 [facility] Comment on above: Performed By: #### 4 [id number] ####[facility] [address] [facility] [place] [address] UA Urobilinogen Negative Normal Negative [facility] Comment on above: Performed By: #### 4 [id number] ####[facility] [address] [facility] [place] [address] Urobilinogen (U) [Mass/Vol] Negative Normal Negative [facility] Comment on above: Performed By: #### 4 [id number] ####[facility] [address] [facility] [place] [address] UA Spec Desc Clean Catch Normal [facility] Comment on above: Performed By: #### 4 [id number] ####[facility] [address] [facility] [place] [address] URINALYSISOrdered By: SYSTEM SYSTEM on 06-22-2023 Color (U) Yellow 1 (06/22/23 3:09 PM) Normal Yellow [facility]A Auto SS Comment on above: Interpretive Data: M icroscopic readings are only performed on those samples that meet specific criteria set forth by [facility]. Glucose (U) [Mass/Vol] Negative Normal [...] 06-22-2023 eGFR 108 mL/min/1.73 m2 Normal >=59 [facility] Comment on above: Order Comment: Order added by Discern Expert. Performed By: #### 1 1674794, 1198106, 0935236, 2491214, 7080038, 76951250, 32567665, 7638154 ####[facility] [address] [place] [address] Hepatic function 2000 panelo n 06-17-2023 Albumin BCP dye [Mass/Vol] 4.0 g/dL Normal 3.4-5.[address] [facility] Comment on above: Performed By: #### 2 5-3 ####GIOVANNI BURNETT ([id number])[facility] ([facility])[address] [place] [address] ALP [Catalytic activity/Vol] 87 U/L Normal 33-[address] [facility] Comment on above: Performed By: #### 2 4324-3 ####GIOVANNI BURNETT ([id number])[facility] ([facility])[address] [place] [address] ALT With P-5'-P [Catalytic activity/Vol] 18 U/L Normal 7-[address] [facility] Comment on above: Result Comment: Katia ents treated with Sulfasalazine may generate falsely decreased results for ALT. Performed By: #### 2 4324-3 ####GIOVANNI BURNETT ([id number])[facility] ([facility])[address] [place] [address] AST With P-5'-P [Catalytic activity/Vol] 18 U/L Normal 9-[address] [facility] Comment on above: Performed By: #### 2 4324-3 ####GIOVANNI BURNETT ([id number])[facility] ([facility])[address] [place] [address] Bilirubin [Mass/Vol] 0.5 mg/dL Normal 0.0-1.2 [facility] Comment on above: Performed By: #### 2 4324-3 ####GIOVANNI BURNETT ([id number])[facility] ([facility])[address] [place] [address] Bilirubin.direct [Mass/Vol] 0.1 mg/dL Normal 0.0-0.[address] [facility] Comment on above: Performed By: #### 2 4324-3 ####GIOVANNI BURNETT ([id number])[facility] ([facility])[address] [place] [address] Protein [Mass/Vol] 7.0 g/dL Normal 6.4-8.2 [facility] Comment on above: Performed By: #### 2 4324-3 ####GIOVANNI BURNETT ([id number])[facility] ([facility])[address] [place] [address] Consent for Treatmenton 05-24 Consent for Treatment [id number]#1.00T IFF Normal [facility] Discharge Instructionson Discharge Instructions [id number]#1.00T IFF Normal [facility] ED Clinical Summaryon 2023 ED Clinical Summary Normal [facility] ED Note-Physicianon 06-15-19 ED Note-Physician Normal [facility] Comment on above: Result Comment: Elec tronically Signed By: Balbina Bryant M.D.\.br\Date and Time Signed: 06/15/23 18:34 EDT ED Patient Education Noteon 06-15-2023 ED Patient Education Note Normal [facility] ED Patient Summaryon 024 ED Patient Summary Normal [facility] Consent for Treatmenton 05-23 Consent for Treatment [id number]#1.00T IFF Normal [facility] Discharge Instructionson Discharge Instructions [id number]#1.00T IFF Normal [facility] ED Clinical Summaryon 2023 ED Clinical Summary Normal [facility] ED Note-Physicianon 06-11-19 ED Note-Physician Normal [facility] Comment on above: Result Comment: Elec tronically Signed By: Elisa Sánchez DO\.br\Date and Time Signed: 06/11/23 22:47 EDT ED PROVIDER NOTESon 06-11-19 [facility] Provider Note ED Provider Note: Pepe ast filed note HNO ID: [id number] Author: Allyson Nicole DO Service: ? Author [...] Allyson Nicole DO, 06/11/2023 10:12 AM Normal [facility] ED Patient Education Noteon 06-11-2023 ED Patient Education Note Normal [facility] ED Patient Summaryon 024 ED Patient Summary Normal [facility] ED NOTESon 06-08-2023 [facility] Note ED Note: Last filed note HNO ID: [id number] Author: Munira Perez, RN Service: ? Author Type: Registered Nurse Filed: 06/08/23 1166 Note Text: Registration called for registration as pt has been up for discharge for 20 min. Normal [facility] ED PROVIDER NOTESon 06-08-19 [facility] Provider Note ED Provider Note: Pepe ast filed note HNO ID: [id number] Author: Flex Jansen PA-C Service: Emergency Medicine Author Type: Physician Wagon Drill Operator Filed: 06/08/23 7315 Note Text: TRIAGE CHIEF COMPLAINT: Chief Complaint [...] Discussed with attending who did evaluate patient kkmi-al-tiqt, developed plan for pain control here, will be given fentanyl dose here with Zofran. Being prescription for Percocet. Encourage rest hydration outpatient follow-up as discussed, close return precautions if symptoms get worse. Did discuss with attending, Allyson Nicole DO, who did evaluate patient nirw-ko-ukui. Patient otherwise stable at this time, vital signs are stable, patient afebrile, and nontoxic in appearance. Attending physician available for immediate consultation throughout entire patient's stay. Decision to Disposition Home or Admit: Discharge FINAL IMPRESSION: 1. Bilateral low back pain Normal [facility] ED TRIAGEon 06-08-2023 [facility] Triage Note ED Triage Note: Last filed note HNO ID: [id number] Author: Cheryl Joiner RN Service: Emergency Medicine Author Type: Registered Nurse Filed: 06/08/23 8380 Note Text: Pt arrives via triage for complaints of lower back apin. Pt states she has hx of bulging disc and states that she was in the car for a long time and thinks that it aggravated her pain more. Normal [facility] ED Note-Physicianon 06-04-19 ED Note-Physician Normal [facility] Comment on above: Result Comment: Elec tronically Signed By: Landon Tidwell PA-C\.br\Date and Time Signed: 06/03/23 19:41 EDT\.br\Electronically Co-Signed By: Pedro Pablo Fletcher DO\.br\Date and Time Co-Signed: 06/04/23 01:40 EDT Consent for Treatmenton 05-23 Consent for Treatment [id number]#1.00T IFF Normal [facility] Discharge Instructionson Discharge Instructions [id number] 0TIFF Normal [facility] ED Clinical Summaryon 2023 ED Clinical Summary Normal [facility] ED Patient Education Noteon 06-03-2023 ED Patient Education Note Normal [facility] ED Patient Summaryon 024 ED Patient Summary Normal [facility] Alanine aminotransferase [En zymatic activity/volume] in Serum or PlasmaOrdered By: Deb Carmichael on 06-01-2023 ALT [Catalytic activity/Vol] 14 U/L Normal 7-52 [facility] Comment on above: Performed By: #### L IPASE, HEPATIC, BMP, CBC #### [address] Albumin [Mass/volume] in Ser um or Plasma by Bromocresol green (BCG) dye binding methoOrdered By: Deb Carmichael on 06-01-2023 Albumin BCG dye [Mass/Vol] 4.2 g/dL 3.5-5.7 [facility] Alkaline phosphatase [Enzyma tic activity/volume] in Serum or PlasmaOrdered By: Deb Carmichael on 06-01-2023 ALP [Catalytic activity/Vol] 69 U/L Normal 34-104 [facility] Comment on above: Performed By: #### L IPASE, HEPATIC, BMP, CBC #### [address] Aspartate aminotransferase [ Enzymatic activity/volume] in Serum or PlasmaOrdered By: Deb Carmichael on 06-01-2023 AST [Catalytic activity/Vol] 16 U/L Normal 13-39 [facility] Comment on above: Result Comment: PERF ORMED BY: [place] [address] PATHOLOGIST TUBE 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 JASON WILSON M.D. Performed By: #### V BG #### Point of Care testing , Automated basophil %Ordered By: Deb Carmichael on 06-01-2023 Basophils/100 WBC (Bld) 0.4 % Normal . [facility] Comment on above: Performed By: #### L IPASE, HEPATIC, BMP, CBC #### [address] Automated basophil countOrde red By: Deb Carmichael on 06-01-2023 Basophils (Bld) [#/Vol] 0.0 10*3/uL Normal 0.0-0.2 [facility] Comment on above: Result Comment: PERF ORMED BY: [place] [address] PATHOLOGIST TUBE 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 JASON WILSON M.D. Performed By: #### L IPASE, HEPATIC, BMP, CBC #### [address] Automated blood monocyte cou ntOrdered By: Deb Carmichael on 06-01-2023 Monocytes (Bld) [#/Vol] 0.6 10*3/uL Normal 0.0-0.8 [facility] Comment on above: Performed By: #### L IPASE, HEPATIC, BMP, CBC #### [address] [place] [address] [place] Automated eosinophil %Ordere d By: Deb Carmichael on 06-01-2023 Eosinophils/100 WBC (Bld) 2.6 % Normal . [facility] Comment on above: Performed By: #### L IPASE, HEPATIC, BMP, CBC #### [address] Automated eosinophil countOr dered By: Deb Carmichael on 06-01-2023 Eosinophils (Bld) [#/Vol] 0.3 10*3/uL Normal 0.0-0.45 [facility] Comment on above: Performed By: #### L IPASE, HEPATIC, BMP, CBC #### [address] Automated monocyte %Ordered By: Deb Carmichael on 06-01-2023 Monocytes/100 WBC (Bld) 6.0 % Normal . [facility] Comment on above: Performed By: #### L IPASE, HEPATIC, BMP, CBC #### [address] Automated neutrophil %Ordere d By: Deb Carmichael on 06-01-2023 Neutrophils/100 WBC (Bld) 60.6 % Normal . [facility] Comment on above: Performed By: #### L IPASE, HEPATIC, BMP, CBC #### [address] Automated urine color determ inationOrdered By: PROVIDER TEMP on 06-01-2023 Color (U) Yellow Normal Yellow [facility] Comment on above: Order Comment: Name Collection Type:: Clean-Voided Midstream Performed By: #### U A #### [address] Basic Metabolic Panelon Anion gap [Moles/Vol] Not performed Normal 6.0-15.0 [facility] Comment on above: Performed By: #### U HCG, ADDONUAPLUS #### [address] Creatinine Clr Calc Pharmacy 122.15 Normal [facility] Comment on above: Performed By: #### U HCG, ADDONUAPLUS #### [facility] [address] [place] [address] GFR/1.73 sq M.predicted MDRD (S/P/Bld) [Vol rate/Area] mL/min/{1.73_m2} Normal [facility] Comment on above: Performed By: #### U HCG, ADDONUAPLUS #### [facility] [address] [place] [address] Potassium Normal 3.5-5.1 [facility] Comment on above: Result Comment: Spec imen hemolyzed, redraw requested Performed By: #### U HCG, ADDONUAPLUS #### [address] Bilirubin Test strip Ql (U)O rdered By: PROVIDER TEMP on 06-01-2023 Bilirubin Ql (U) Negative Negative [facility] Bilirubin.direct [Mass/volum e] in Serum or PlasmaOrdered By: Deb Carmichael on 06-01-2023 Bilirubin.direct [Mass/Vol] 0.10 mg/dL 0.03-0.18 [facility] Bilirubin.total [Mass/volume ] in Serum or PlasmaOrdered By: Deb Carmichael on 06-01-2023 Bilirubin [Mass/Vol] 0.5 mg/dL Normal 0.3-1.0 [facility] Comment on above: Performed By: #### L IPASE, HEPATIC, BMP, CBC #### [facility] [address] [place] [address] CT abdomen pelvis w conon CT abdomen pelvis w con [facility] [place] [address] [place] [address] CT Scan Report Signed Patient: Jerad Tracy MR#: [id number] 49 : 1975 Acct:[id number] Age/Sex: 48 / F ADM Date: 06/01/23 Loc: ER Room: Type: [facility] ER Attending Dr: Copies to: Deb Carmichael [...] Idalia Juarez M.D.06/01/2023 3:07 PM Dictation Location: [place] [address] Transcribed By: [facility] 06/01/23 1507 Dictated By: Idalia Juarez MD 06/01/23 1501 Signed By: 06/01/23 1507 Normal [facility] Calcium [Mass/volume] in Ser um or PlasmaOrdered By: Deb Carmichael on 06-01-2023 Calcium [Mass/Vol] 9.0 mg/dL Normal 8.6-10.3 [facility] Comment on above: Performed By: #### U HCG, ADDONUAPLUS #### [address] Carbon dioxide, total [Moles /volume] in Serum or PlasmaOrdered By: Deb Carmichael on 06-01-2023 CO2 [Moles/Vol] 25.6 mmol/L Normal 21.0-31.0 [facility] Comment on above: Performed By: #### U HCG, ADDONUAPLUS #### [address] Chloride [Moles/volume] in S saw or PlasmaOrdered By: Deb Carmichael on 06-01-2023 Chloride [Moles/Vol] 102 mmol/L Normal 98-107 [facility] Comment on above: Performed By: #### U HCG, ADDONUAPLUS #### [address] Complete Blood Count Auto Di ffon 06-01-2023 Mean Corpuscular HGB Conc 33.9 g/dL Normal 32.0-35.0 [facility] Comment on above: Performed By: #### L IPASE, HEPATIC, BMP, CBC #### [place] [address] [place] Monocytes/100 WBC (Bld) 18.80 % Normal 0.00-20.00 [facility] Comment on above: Performed By: #### L IPASE, HEPATIC, BMP, CBC #### [place] [address] [place] NRBC% 0.1 /100{WBC} Normal 0-0.5 [facility] Comment on above: Performed By: #### L IPASE, HEPATIC, BMP, CBC #### [place] [address] [place] Creatinine [Mass/volume] in Serum or PlasmaOrdered By: Deb Carmichael on 06-01-2023 Creatinine [Mass/Vol] 0.64 mg/dL Normal 0.60-1.20 [facility] Comment on above: Performed By: #### U HCG, ADDONUAPLUS #### [address] [place] [address] [facility] ECG 12 lead ECGon 06-01-2023 ECG 12 lead ECG [facility] [place] [address] [place] [address] Electrocardiograph Report Signed Patient: Jerad Tracy MR#: [id number] 49 : 1975 Acct:[id number] Age/Sex: 48 / F ADM Date: 06/01/23 Loc: ER Room: Type: [facility] ER Attending Dr: Ordering Provider: Deb [...] By: MUS Signed By Vlad Bhandari DO 183 Normal [facility] ED Note-Physicianon 06-01-19 ED Note-Physician Normal [facility] Comment on above: Result Comment: Elec tronically Signed By: Robert Taylor PA-C\.br\Date and Time Signed: 05/31/23 18:10 EST\.br\Electronically Co-Signed By: Jorge Mcintosh DO\.br\Date and Time Co-Signed: 06/01/23 07:39 EST Erythrocyte distribution wid th [Ratio] by Automated countOrdered By: Deb Carmichael on 06-01-2023 Erythrocyte distribution width (RBC) [Ratio] 13.4 % Normal 11.9-15.3 [facility] Comment on above: Performed By: #### L IPASE, HEPATIC, BMP, CBC #### [facility] [address] [place], [place] [id number] [facility] Erythrocytes [#/volume] in B lood by Automated countOrdered By: Deb Carmichael on 06-01-2023 RBC (Bld) [#/Vol] 4.75 10*6/uL Normal 3.60-5.00 [facility] Comment on above: Performed By: #### L IPASE, HEPATIC, BMP, CBC #### [facility] [address] [place] [address] [place] Glucose [Mass/volume] in Ser um or PlasmaOrdered By: Deb Carmichael on 06-01-2023 Glucose [Mass/Vol] 92 mg/dL Normal 70-100 [facility] Comment on above: ADA recommended refe rence rangeRandom Glucose Reference Range is dependent on time and content of last meal. Glucose of more than 200 mg/dL in a nonstressed, ambulatory subject supports the diagnosis of Diabetes Mellitus. Result Comment: [place] om Glucose Reference Range is dependent on time and content of last meal. Glucose of more than 200 mg/dL in a nonstressed, ambulatory subject supports the diagnosis of Diabetes Mellitus. ADA recommended reference range Performed By: #### U HCG, ADDONUAPLUS #### [facility] [address] Hematocrit [Volume Fraction] of Blood by Automated countOrdered By: Deb Carmichael on 06-01-2023 Hematocrit (Bld) [Volume fraction] 44.7 % Normal 34.0-46.4 [facility] Comment on above: Performed By: #### L IPASE, HEPATIC, BMP, CBC #### [facility] [address] [place] [address] [place] Hemoglobin [Mass/volume] in BloodOrdered By: Deb Carmichael on 06-01-2023 Hemoglobin (Bld) [Mass/Vol] 15.1 g/dL Normal 11.8-15.4 [facility] Comment on above: Performed By: #### L IPASE, HEPATIC, BMP, CBC #### [facility] [address] [place] [id number] [facility] Hepatic Panelon 06-01-2023 Albumin [Mass/Vol] 4.2 g/dL Normal 3.5-5.7 The On license of [facility] Comment on above: Performed By: #### L IPASE, HEPATIC, BMP, CBC #### [facility] [address] Aspartate Amino Transferase Normal 13-39 [facility] Comment on above: Result Comment: Spec imen hemolyzed, redraw requested Performed By: #### L IPASE, HEPATIC, BMP, CBC #### [facility] [address] Bilirubin,Direct Normal 0.03-0.18 [facility] Comment on above: Result Comment: Spec imen hemolyzed, redraw requested Performed By: #### L IPASE, HEPATIC, BMP, CBC #### [facility] [address] Bilirubin,Indirect Not performed Normal [facility] Comment on above: Performed By: #### L IPASE, HEPATIC, BMP, CBC #### [facility] [address] Ketones Auto test strip (U) [Mass/Vol]Ordered By: PROVIDER TEMP on 06-01-2023 Ketones (U) [Mass/Vol] Negative Negative [facility] Leukocytes [#/volume] correc lisa for nucleated erythrocytes in Blood by Automated counOrdered By: Deb Carmichael on 06-01-2023 WBC corrected for nucl RBC Auto (Bld) [#/Vol] 10.7 10*3/uL 3.8-11.6 [facility] Leukocytes [#/volume] in Blo od by Automated countOrdered By: Deb Carmichael on 06-01-2023 WBC (Bld) [#/Vol] 10.7 10*3/uL Normal 3.8-11.6 [facility] Comment on above: Performed By: #### L IPASE, HEPATIC, BMP, CBC #### [facility] [address] Lipase [Enzymatic activity/v olume] in Serum or PlasmaOrdered By: Deb Carmichael on 06-01-2023 Lipase [Catalytic activity/Vol] 13.0 U/L Normal 11.0-82.0 [facility] Comment on above: Result Comment: PERF ORMED BY: [place] [address] PATHOLOGIST TUBE 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 JASON WILSON M.D. Performed By: #### U HCG, ADDONUAPLUS #### [address] Lymphocytes [#/volume] in Bl ood by Automated countOrdered By: Deb Carmichael on 06-01-2023 Lymphocytes (Bld) [#/Vol] 3.2 10*3/uL Normal 1.00-4.8 [facility] Comment on above: Performed By: #### L IPASE, HEPATIC, BMP, CBC #### [address] Lymphocytes/100 leukocytes i n Blood by Automated countOrdered By: Deb Carmichael on 06-01-2023 Lymphocytes/100 WBC (Bld) 30.4 % Normal . [facility] Comment on above: Performed By: #### L IPASE, HEPATIC, BMP, CBC #### [address] MCH [Entitic mass] by Automa lisa countOrdered By: Deb Carmichael on 06-01-2023 MCH (RBC) [Entitic mass] 31.8 pg Normal 24.7-34.3 [facility] Comment on above: Performed By: #### L IPASE, HEPATIC, BMP, CBC #### [facility] [address] [place] [address] MCHC Auto (RBC) [Mass/Vol]Or dered By: Deb Carmichael on 06-01-2023 MCHC (RBC) [Mass/Vol] 33.9 g/dL 32.0-35.0 [facility] MCV [Entitic volume] by Auto mated countOrdered By: Deb Carmichael on 06-01-2023 MCV (RBC) [Entitic vol] 94.0 fL Normal 80-100 [facility] Comment on above: Performed By: #### L IPASE, HEPATIC, BMP, CBC #### [address] [place] [address] [place] Monocyte distribution width [Entitic volume] in Blood by AutomatedOrdered By: Deb Carmichael on 06-01-2023 Monocyte distribution width Auto (Bld) [Entitic vol] 18.80 % 0.00-20.00 [facility] Neutrophils [#/volume] in Bl ood by Automated countOrdered By: Deb Carmichael on 06-01-2023 Neutrophils (Bld) [#/Vol] 6.5 10*3/uL Normal 1.8-7.7 [facility] Comment on above: Performed By: #### L IPASE, HEPATIC, BMP, CBC #### [facility] [address] Nitrite Test strip Ql (U)Ord ered By: PROVIDER TEMP on 06-01-2023 Nitrite Ql (U) Negative Negative [facility] No Panel InformationOrdered By: Deb Carmichael on 06-01-2023 Estimated GFR (CKD-EPI) > 60.0 mL/Min [facility] Creatinine Clearance (Chem 122.15 [facility] Nucleated erythrocytes [Pres ence] in Blood by Automated countOrdered By: Deb Carmichael on 06-01-2023 Nucleated RBC Auto Ql (Bld) 0.1 /100{WBC} 0-0.5 [facility] Platelet mean volume [Entiti c volume] in Blood by Automated countOrdered By: Deb Carmichael on 06-01-2023 Platelet mean volume (Bld) [Entitic vol] 9.0 fL Normal 6.3-10.7 [facility] Comment on above: Performed By: #### L IPASE, HEPATIC, BMP, CBC #### [facility] [address] [place] [address] [place] Platelets [#/volume] in Bloo d by Automated countOrdered By: Deb Carmichael on 06-01-2023 Platelets (Bld) [#/Vol] 311 10*3/uL Normal 150-450 [facility] Comment on above: Performed By: #### L IPASE, HEPATIC, BMP, CBC #### [facility] [address] Potassium [Moles/volume] in Serum or PlasmaOrdered By: Deb Carmichael on 06-01-2023 Potassium [Moles/Vol] 4.2 mmol/L Normal 3.5-5.1 [facility] Comment on above: Performed By: #### V BG #### Point of Care testing , Protein Auto test strip (U) [Mass/Vol]Ordered By: PROVIDER TEMP on 06-01-2023 Protein (U) [Mass/Vol] Negative Negative [facility] Protein [Mass/volume] in Ser um or PlasmaOrdered By: Deb Carmichael on 06-01-2023 Protein [Mass/Vol] 7.9 g/dL Normal 6.4-8.9 [facility] Comment on above: Performed By: #### L IPASE, HEPATIC, BMP, CBC #### [facility] [address] [place] [address] Redraw Bilirubin,Directon Redraw Bilirubin,Direct 0.10 mg/dL Normal 0.03-0.18 [facility] Comment on above: Performed By: #### V BG #### Point of Care testing , Serum globulin measurement b y calculation (mass/volume)Ordered By: Deb Carmichael on 06-01-2023 Globulin (S) [Mass/Vol] 3.7 g/dL [facility] Comment on above: Performed By: #### L IPASE, HEPATIC, BMP, CBC #### [facility] [address] Serum or plasma albumin/glob ulin mass ratioOrdered By: Deb Carmichael on 06-01-2023 Albumin/Globulin [Mass ratio] 1.1 {ratio} [facility] Comment on above: Performed By: #### L IPASE, HEPATIC, BMP, CBC #### [facility] [address] Serum or plasma anion gap de terminationOrdered By: Deb Carmichael on 06-01-2023 Anion gap [Moles/Vol] TNP [facility] Comment on above: Test not performed Serum or plasma non-glucuron idated bilirubin measurement (mass/volume)Ordered By: eDb Carmichael on 06-01-2023 Bilirubin.indirect [Mass/Vol] TNP [facility] Comment on above: Test not performed Sodium [Moles/volume] in Ser um or PlasmaOrdered By: Deb Carmichael on 06-01-2023 Sodium [Moles/Vol] 136 mmol/L Normal 136-145 [facility] Comment on above: Performed By: #### U HCG, ADDONUAPLUS #### [facility] [address] [place] [address] Specific gravity Auto test s trip (U) [Rel density]Ordered By: MOLLY KURTZ on 06-01-2023 Specific gravity (U) [Rel density] 1.015 1.001-1.030 [facility] Troponin I High Sensitivityo n 06-01-2023 Troponin I High Sensitivity 3.5 pg/mL Normal 0.0-15.0 [facility] Comment on above: Result Comment: PERF ORMED BY: [address] [place] [address] PATHOLOGIST TUBE 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 JASON WILSON M.D. Performed By: #### C MPDEYVI, CBC #### [facility] [address] [place] [address] Troponin I.cardiac [Mass/vol ume] in Serum or Plasma by Detection limit <= 0.01 ng/Ordered By: Deb Carmichael on 06-01-2023 Troponin I.cardiac DL <= 0.01 ng/mL [Mass/Vol] 3.5 pg/mL 0.0-15.0 [facility] Urea nitrogen [Mass/volume] in Serum or PlasmaOrdered By: Deb Carmichael on 06-01-2023 Urea nitrogen [Mass/Vol] 18 mg/dL Normal 7-25 [facility] Comment on above: Performed By: #### U HCG, ADDONUAPLUS #### [facility] [address] [place] [address] [place] Urinalysison 06-01-2023 Appearance (U) Clear Normal Clear [facility] Comment on above: Order Comment: Name Collection Type:: Clean-Voided Midstream Performed By: #### U A #### [place] [address] [place] Bilirubin,Urine Negative Normal Negative [facility] Comment on above: Order Comment: Name Collection Type:: Clean-Voided Midstream Performed By: #### U A #### [place] [address] [place] Glucose Ql (U) Normal Normal Normal [facility] Comment on above: Order Comment: Name Collection Type:: Clean-Voided Midstream Performed By: #### U A #### [place] [address] [place] Ketones Ql (U) Negative Normal Negative [facility] Comment on above: Order Comment: Name Collection Type:: Clean-Voided Midstream Performed By: #### U A #### [place] [address] [place] Leukocyte esterase Test strip Ql (U) Negative Normal Negative [facility] Comment on above: Order Comment: Name Collection Type:: Clean-Voided Midstream Performed By: #### U A #### [place] [address] [place] Nitrite,Urine Negative Normal Negative [facility] Comment on above: Order Comment: Name Collection Type:: Clean-Voided Midstream Performed By: #### U A #### [place] [address] [place] Occult Blood,Urine Negative Normal Negative The On license of [facility] Comment on above: Order Comment: Name Collection Type:: Clean-Voided Midstream Result Comment: PERF ORMED BY: [place] [address] PATHOLOGIST TUBE 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 JASON WILSON M.D. Performed By: #### U A #### [place] [address] [place] Protein,Urine Negative Normal Negative [facility] Comment on above: Order Comment: Name Collection Type:: Clean-Voided Midstream Performed By: #### U A #### [facility] [address] Specificy [place],Urine 1.015 Normal 1.001-1.030 [facility] Comment on above: Order Comment: Name Collection Type:: Clean-Voided Midstream Performed By: #### U A #### [facility] [address] [place] [address] Urobilinogen,Urine Normal Normal Normal [facility] Comment on above: Order Comment: Name Collection Type:: Clean-Voided Midstream Performed By: #### U A #### [facility] [address] [place] [address] Urine clarity by refractomet ry automatedOrdered By: PROVIDER TEMP on 06-01-2023 Clarity Refractometry automated (U) Clear Clear [facility] Urine glucose measurement by automated test strip (mass/volume)Ordered By: PROVIDER TEMP on 06-01-2023 Glucose Auto test strip (U) [Mass/Vol] Normal mg/dL Normal [facility] Urine hemoglobin detection b y automated test stripOrdered By: PROVIDER TEMP on 06-01-2023 Hemoglobin Auto test strip Ql (U) Negative Negative [facility] Urine leukocyte esterase det ection by automated test stripOrdered By: PROVIDER TEMP on 06-01-2023 Leukocyte esterase Auto test strip Ql (U) Negative Negative [facility] Urine pH measurement by auto mated test stripOrdered By: PROVIDER TEMP on 06-01-2023 pH (U) 7.0 [pH] Normal 5.0-9.0 [facility] Comment on above: Order Comment: Name Collection Type:: Clean-Voided Midstream Performed By: #### U A #### [facility] [address] [place] [address] Urobilinogen Auto test strip (U) [Mass/Vol]Ordered By: PROVIDER TEMP on 06-01-2023 Urobilinogen (U) [Mass/Vol] Normal mg/dL Normal [facility] XR chest 2V*on 06-01-2023 XR chest 2V* [facility] [place] [address] [place] [address] XRay Report Signed Patient: Jerad Tracy MR#: [id number] 49 : 1975 Acct:[id number] Age/Sex: 48 / F ADM Date: 06/01/23 Loc: ER Room: Type: [facility] ER Attending Dr: Copies to: Deb [...] Idalia Juarez M.D.06/01/2023 5:24 PM Dictation Location: [place] [address] Transcribed By: BRYCE 06/01/23 172 Dictated By: Idalia Juarez MD 06/01/23 172 Signed By: 06/01/23 1724 Normal [facility] BMPOrdered By: SYSTEM SYSTEM on 05-31-2023 Anion gap [Moles/Vol] 11 mmol/L Normal 6-16 [facility] Comment on above: Performed By: #### 1 8234742, 7695783, 3423402, 9607625, 5392119, 73546259 ####[facility] [address] [place] [address] Calcium [Mass/Vol] 9.0 mg/dL Normal 8.9-11.1 [facility] Comment on above: Performed By: #### 1 1944723, 6353840, 4855318, 1540203, 0793853, 26656747 ####[facility] [address] [place] [address] Chloride [Moles/Vol] 104 mmol/L Normal 101-111 [facility] Comment on above: Performed By: #### 1 7877898, 4607318, 6415130, 7072494, 6127278, 05194669 ####[facility] [address] [place] [address] CO2 [Moles/Vol] 27 mmol/L Normal 21-31 [facility] Comment on above: Performed By: #### 1 4294262, 4897534, 5800088, 8766363, 3415589, 23244410 ####[place] [address] [place] [address] Creatinine [Mass/Vol] 0.7 mg/dL Normal 0.5-1.3 Rem isol Chem Comment on above: Performed By: #### 1 7702546, 3287486, 7463781, 6729632, 5171096, 48417942 ####[address] [address] Glucose [Mass/Vol] 97 mg/dL Normal 55-199 [facility] Comment on above: Performed By: #### 1 5920853, 7141806, 7414520, 0305277, 2272125, 38753494 ####[address] [address] Potassium [Moles/Vol] 3.7 mmol/L Normal 3.5-5.3 Rem isol Chem Comment on above: Performed By: #### 1 8578403, 2798005, 1389343, 2604793, 5574259, 08634176 ####[address] [address] Sodium [Moles/Vol] 138 mmol/L Normal 135-145 [facility] Comment on above: Performed By: #### 1 5195927, 2860424, 1344078, 2137014, 4321403, 68341329 ####[address] [address] Urea nitrogen [Mass/Vol] 15 mg/dL Normal 5-21 [facility] Comment on above: Performed By: #### 1 3961779, 8009255, 6597818, 3387216, 5413964, 97001311 ####[address] [address] BMPon 05-31-2023 Urea nitrogen/Creatinine [Mass ratio] 21 No Units High 10-20 [facility] Comment on above: Performed By: #### 1 1317222, 7674693, 2678314, 6071174, 0283546, 05438059 ####[facility] [address] [place] [address] CBC w/ Auto DiffOrdered By: SYSTEM SYSTEM on 05-31-2023 Basophils/100 WBC (Bld) 0.5 % Normal 0.0-2.0 [facility] Comment on above: Performed By: #### 1 9620925, 0478033, 2837129, 9081908, 9549785, 04480319 ####[address] [address] Basophils/Leukocytes Auto (Bld) [Pure # fraction] 0.1 E9/L Normal 0.0-0.2 [facility] Comment on above: Performed By: #### 1 1445693, 6661700, 3347293, 4850844, 4317901, 07198102 ####[address] [address] Eosinophils (Bld) [#/Vol] 0.2 E9/L Normal 0.0-0.5 [facility] Comment on above: Performed By: #### 1 4262672, 5723649, 7722553, 4198892, 0238299, 31538528 ####[address] [address] Eosinophils/100 WBC (Bld) 2.1 % Normal 0.0-8.0 [facility] Comment on above: Performed By: #### 1 1310823, 6109013, 9211754, 4734042, 5476925, 52866992 ####[address] [address] Erythrocyte distribution width (RBC) [Ratio] 13.4 % Normal 10.9-14.2 [facility] Comment on above: Performed By: #### 1 2879654, 9258176, 6601549, 5934170, 0139345, 31931162 ####[place] [place] [address] Hematocrit (Bld) [Volume fraction] 41.8 % Normal 34.0-46.0 [facility] Comment on above: Performed By: #### 1 0073748, 7010092, 0433938, 2843605, 5988866, 85910512 ####[place] [address] Hemoglobin (Bld) [Mass/Vol] 13.9 g/dL Normal 12.0-16.0 [facility] Comment on above: Performed By: #### 1 2684595, 4586969, 7466407, 4743231, 8443801, 14574566 ####[place] [address] Lymphocytes (Bld) [#/Vol] 3.6 E9/L Normal 1.0-4.0 [facility] Comment on above: Performed By: #### 1 5510117, 9745223, 8520196, 6851248, 0287469, 93135770 ####[place] [address] Lymphocytes/100 WBC (Bld) 32.1 % Normal 14.0-50.0 [facility] Comment on above: Performed By: #### 1 7055280, 3682569, 4561406, 9529167, 5191147, 74500528 ####[place] [place] [address] MCH (RBC) [Entitic mass] 31.4 pg Normal 27.0-34.0 [facility] Comment on above: Performed By: #### 1 3540498, 6366645, 7271335, 3317348, 0368155, 33052379 ####[address] [address] MCHC (RBC) [Mass/Vol] 33.3 g/dL Normal 31.4-36.0 [facility] Comment on above: Performed By: #### 1 0560452, 5361457, 1897191, 0219162, 3396685, 81147199 ####[address] [address] MCV (RBC) [Entitic vol] 94.1 fL Normal 80.0-100.0 [facility] Comment on above: Performed By: #### 1 5184933, 4717572, 5666326, 5201380, 2032075, 44513663 ####[place] [address] Monocytes (Bld) [#/Vol] 0.6 E9/L Normal 0.2-1.0 [facility] Comment on above: Performed By: #### 1 4996203, 4550062, 5695722, 3048915, 1685813, 26651882 ####[place] [address] Neutrophils (Bld) [#/Vol] 6.8 E9/L Normal 2.0-7.5 [facility] Comment on above: Performed By: #### 1 3964529, 7020530, 4686373, 9758976, 5815346, 94584793 ####[address] [address] Neutrophils/100 WBC (Bld) 59.6 % Normal 36.0-75.0 [facility] Comment on above: Performed By: #### 1 1828315, 4169548, 5250724, 2664846, 4075773, 46586923 ####[place] [address] [address] Platelet mean volume (Bld) [Entitic vol] 9.2 fL Normal 6.4-10.8 [facility] Comment on above: Performed By: #### 1 2585971, 8051180, 2855192, 8550768, 5913632, 12565361 ####[address] [address] Platelets (Bld) [#/Vol] 271.0 E9/L Normal 150.0-500.0 [facility] Comment on above: Performed By: #### 1 9077430, 3608391, 2430632, 9015542, 2910310, 27187377 ####[facility] [address] [place] [address] RBC (Bld) [#/Vol] 4.4 E12/L Normal 4.3-5.9 [facility] Comment on above: Performed By: #### 1 7578343, 2500322, 0340825, 5466727, 5953836, 67781631 ####[facility] [address] [place] [address] WBC corrected for nucl RBC Auto (Bld) [#/Vol] 11.4 E9/L High 4.0-11.0 [facility] Comment on above: Performed By: #### 1 1892679, 0204446, 5183177, 0549844, 4955503, 69116068 ####[facility] [address] [place], [place] [address] CHEMISTRYOrdered By: SYSTEM SYSTEM on 05-31-2023 Albumin/Globulin [...] - 20 [facility] COAGULATIONOrdered By: Zoë Joyce on 05-31-2023 aPTT Coag (PPP) [Time] 33.3 s Normal 25.1 - 36.5 second(s) [facility] Comment on above: Interpretive Data: P arameter 15 days - 4 weeks 1 - 5 months 6 - 11 months 1 - 5 years 6 - 10 years 11 - 17 years PTT Mean: 35.4 (27.6-45.6) Mean: 33.5 (24.8-40.7) Mean: 32.4 (25.1-40.7) Mean: 31.6 (24.0-39.2) Mean: 31.6 (26.9-38.7) Mean: 31.0 (24.6-38.4) Pediatric Reference ranges were obtained from a study by monique Zavala prepared from 1437 samples obtained at 7 different centers using the same coagulation reagent and instrumentation as [facility] Currently there are no coagulation studies available worldwide for children to 14 days, and no normal ranges. Heparin therapeutic range (represented by Anti-Factor Xa activity of 0.2 - 0.4 U/mL) corresponds to PTT of 56.6 - 109.0 sec. PT Coag (PPP) [Time] 10.8 s Normal 9.4 - 1 2.5 second(s) [facility] Comment on above: Interpretive Data: [...] the same coagulation reagent and instrumentation as [facility]. Currently there are no coagulation studies available worldwide for children to 14 days, and no normal ranges. Consent for Treatmenton Consent for Treatment [id number] IFF Normal [facility] Discharge Instructionson Discharge Instructions [id number] TIFF Normal [facility] ED Clinical Summaryon 2023 ED Clinical Summary Normal Osbaldo martinez [facility] ED Patient Education Noteon 05-31-2023 ED Patient Education Note Normal [facility] ED Patient Summaryon 024 ED Patient Summary Normal [facility] HEMATOLOGYOrdered By: SYSTEM SYSTEM on 05-31-2023 Monocytes/100 WBC (Bld) 5.7 % Normal 4.0 - 14.0 % [facility] Hep Func PanelOrdered By: [employer] SYSTEM on 05-31-2023 Albumin [Mass/Vol] 4.1 g/dL Normal 3.3-5.0 [facility] Comment on above: Performed By: #### 1 7119463, 7248518, 2601381, 4336882, 6579260, 84913756 ####[facility] [address] [place] [address] Bilirubin [Mass/Vol] 0.4 mg/dL Normal 0.0-1.1 [facility] Comment on above: Performed By: #### 1 4910177, 4349242, 5262496, 1190074, 5432873, 26494116 ####[facility] [address] [place] [address] Bilirubin.direct [Mass/Vol] 0.1 mg/dL Normal 0.0-0.4 [facility] Comment on above: Performed By: #### 1 2245130, 2315545, 1857071, 1023745, 2437738, 53027152 ####[facility] [address] [place] [address] Bilirubin.indirect [Mass or moles/Vol] 0.3 mg/dL Normal 0.1-0.9 [facility] Comment on above: Performed By: #### 1 6547543, 9879227, 9013022, 8439411, 1075484, 98388096 ####[facility] [address] [place] [address] Globulin (S) [Mass/Vol] 3.1 g/dL Normal 1.4-4.0 [facility] Comment on above: Performed By: #### 1 0684688, 1523910, 7554128, 4375103, 8594573, 79329262 ####[address] [address] Protein [Mass/Vol] 7.2 g/dL Normal 6.0-7.8 [facility] Comment on above: Performed By: #### 1 3698387, 6808491, 2291973, 8214907, 6645233, 39616948 ####[facility] [address] [place] [address] Hep Func Panelon 05-31-2023 Albumin/Globulin (S) [Mass conc ratio] 1.3 Normal 1.1-2.2 [facility] Comment on above: Performed By: #### 1 [id number], 6258921, 3785539, 6937442, 4604351, 17619154 ####[address] [place] [address] ALP [Catalytic activity/Vol] 72 Int._Unit/L Normal 21-98 [facility] Comment on above: Performed By: #### 1 8856609, 5369673, 2178850, 1568258, 3197152, 09009308 ####[address] [place] [address] ALT No additional P-5'-P [Catalytic activity/Vol] 13 Int._Unit/L Normal 6-46 [facility] Comment on above: Performed By: #### 1 7376201, 0155669, 9420544, 4457076, 9574001, 76882636 ####[address] [place] [address] AST [Catalytic activity/Vol] 14 Int._Unit/L Normal 5-43 [facility] Comment on above: Performed By: #### 1 4313320, 7312974, 6154835, 5651888, 6791398, 66334771 ####[address] [place] [address] Lipase LevelOrdered By: SYST EM SYSTEM on 05-31-2023 Lipase [Catalytic activity/Vol] 10 U/L Low 13-58 [facility] Comment on above: Performed By: #### 1 1555668, 8316641, 5438491, 1888406, 2854951, 03730410 ####[facility] [address] [place] [address] PT & PTTon 05-31-2023 aPTT Coag (PPP) [Time] 33.3 second(s) Normal 25.1-36.5 [facility] Comment on above: Result Comment: Para meter 15 days - 4 weeks 1 - 5 months 6 - 11 months 1 - 5 years 6 - 10 years 11 - 17 years PTT Mean: 35.4 (27.6-45.6) Mean: 33.5 (24.8-40.7) Mean: 32.4 (25.1-40.7) Mean: 31.6 (24.0-39.2) Mean: 31.6 (26.9-38.7) Mean: 31.0 (24.6-38.4) Pediatric Reference ranges were obtained from a study by monique Zavala prepared from 1437 samples obtained at 7 different centers using the same coagulation reagent and instrumentation as [facility] Currently there are no coagulation studies available worldwide for children to 14 days, and no normal ranges. Heparin therapeutic range (represented by Anti-Factor Xa activity of 0.2 - 0.4 U/mL) corresponds to PTT of 56.6 - 109.0 sec. Performed By: #### 1 3174687, 6830810, 0482001, 3308123, 2002098, 61105807 ####[facility] [address] [place] [address] PT Coag (PPP) [Time] 10.8 second(s) Normal 9.4-12.5 [facility] Comment on above: Result Comment: 15 [...] ranges were obtained from a study by monique Zavala prepared from 1437 samples obtained at 7 different centers using the same coagulation reagent and instrumentation as [facility]. Currently there are no coagulation studies available worldwide for children to 14 days, and no normal ranges. Performed By: #### 1 6967248, 7902681, 6609947, 7452299, 8355246, 38570444 ####[facility] [address] [place] [address] PT & PTTOrdered By: Zoë lucero on 05-31-2023 INR Coag (PPP) [Relative time] 0.96 {INR} Invalid Interpretation Code [facility] Auto Coag Comment on above: Interpretive Data: [...] 3.0 ? 4.5 Performed By: #### 1 5997718, 7707022, 8288030, 2833327, 2819877, 37032835 ####[facility] [address] [place] [address] UA With Cult Reflexon 2023 Bacteria LM Ql (Urine sed) TRACE Normal Trace [facility] Comment on above: Performed By: #### 1 1431786 ####[facility] [address] [place] [address] Bilirubin Ql (U) Negative Normal Negative [facility] Comment on above: Performed By: #### 1 5828468 ####[facility] [address] [place] [address] Clarity (U) CLOUDY Abnormal Clear [facility] Comment on above: Performed By: #### 1 0264244 ####[facility] [address] [place] [address] Color (U) YELLOW Normal Yellow [facility] Comment on above: Performed By: #### 1 3515705 ####[facility] [address] [place] [address] Crystals LM Ql (Urine sed) Present Normal [facility] Comment on above: Performed By: #### 1 2691891 ####[facility] [address] [place] [address] Epithelial cells.squamous LM.HPF (Urine sed) [#/Area] 0-2 Normal 0-[address] [facility] Comment on above: Performed By: #### 1 5316144 ####[facility] [address] [place] [address] Glucose Test strip (U) [Mass/Vol] Negative Normal Negative [facility] Comment on above: Performed By: #### 1 6051048 ####[facility] [address] [place] [address] Hemoglobin Ql (U) Negative Normal Negative [facility] Comment on above: Performed By: #### 1 2369865 ####[address] [address] Ketones (U) [Mass/Vol] Negative Normal Negative [facility] Comment on above: Performed By: #### 1 6341072 ####[facility] [address] [place] [address] Musella.plasma/Musella .RBC (Bld) [Mass ratio] 0-3 Normal 0-3 [facility] Comment on above: Performed By: #### 1 1117478 ####[facility] [address] [place] [address] Nitrite Ql (U) Negative Normal Negative [facility] Comment on above: Performed By: #### 1 3007913 ####[facility] [address] [place] [address] pH (U) 8.0 [pH] Invalid Interpretation Code 5.0-9.0 [facility] Comment on above: Performed By: #### 1 0985809 ####[facility] [address] [place] [address] Protein (U) [Mass/Vol] Negative Normal Negative [facility] Comment on above: Performed By: #### 1 6435651 ####[place] [address] Specific gravity (U) [Rel density] 1.015 Invalid Interpretation Code 1.005-1.030 [facility] Comment on above: Performed By: #### 1 7962212 ####[place] [address] Type of Urine collection method Clean Catch Normal [facility] Comment on above: Performed By: #### 1 3254600 ####[address] Urobilinogen Qn (U) 0.2 {Jan'U}/dL Normal 0.0-1.0 [facility] Comment on above: Performed By: #### 1 9374598 ####[place] [address] WBC Auto Ql (U) Negative Normal Negative [facility] Comment on above: Performed By: #### 1 0011662 ####[address] WBC LM.HPF (Urine sed) [#/Area] 0-5 Normal 0-5 [facility] Comment on above: Performed By: #### 1 8962739 ####[place] [address] URINALYSISOrdered By: Zoë gordon on 05-31-2023 Bacteria LM Ql (Urine sed) Trace /HPF Normal Trace/HPF FT UA Auto SS Bilirubin Ql (U) Negative [...] PM) Normal Negative [facility] UA Auto SS Musella.plasma/Musella .RBC (Bld) [Mass ratio] 0-3 /HPF Normal [...] [facility] UA Auto SS Urobilinogen Qn (U) 0.5191020 {Jan'U}/dL Normal 0.0 - 1.0 EU/dL [facility] UA Auto SS WBC Auto Ql (U) Negative (05/31/23 4:53 PM) Normal Negative [facility] UA Auto SS WBC LM.HPF (Urine sed) [#/Area] 0-5 /HPF Normal 0-5/HPF [facility] UA Auto SS eGFROrdered By: SYSTEM SYSTE M on 05-31-2023 eGFR 108 mL/min/1.73 m2 Normal >=59 [facility] Comment on above: Order Comment: Order added by Discern Expert. Performed By: #### 1 7403323, 3671926, 2680151, 3481304, 9118534, 91533408 ####[facility] [address] [place] [address] ED Note-Physicianon 05-27-19 ED Note-Physician Normal [facility] Comment on above: Result Comment: Elec tronically Signed By: Brianda MILES, Susu Fernandez.br\Date and Time Signed: 05/26/23 21:33 EST\.br\Electronically Co-Signed By: Pedro Pablo Fletcher DO\.br\Date and Time Co-Signed: 05/27/23 00:01 EST Consent for Treatmenton Consent for Treatment [id number]#1.00T IFF Normal [facility] ED Clinical Summaryon 2023 ED Clinical Summary Normal Tommye r [facility] ED Patient Education Noteon 05-26-2023 ED Patient Education Note Normal [facility] ED Patient Summaryon 024 ED Patient Summary Normal [facility] UA With Cult Reflexon 2023 Bilirubin Ql (U) Negative Normal Negative [facility] Comment on above: Performed By: #### 1 0683016 ####[facility] [address] [place] [address] Clarity (U) CLEAR Normal Clear [facility] Comment on above: Performed By: #### 1 9729085 ####[facility] [address] [place] [address] Color (U) YELLOW Normal Yellow [facility] Comment on above: Performed By: #### 1 0841471 ####[facility] [address] [place] [address] Epithelial cells.squamous LM.HPF (Urine sed) [#/Area] 0-2 Normal 0-[address] [facility] Comment on above: Performed By: #### 1 1775987 ####[facility] [address] [place] [address] Glucose Test strip (U) [Mass/Vol] Negative Normal Negative [facility] Comment on above: Performed By: #### 1 2441441 ####[facility] [address] [place] [address] Hemoglobin Ql (U) Negative Normal Negative [facility] Comment on above: Performed By: #### 1 6782804 ####[facility] [address] [place] [address] Ketones (U) [Mass/Vol] Negative Normal Negative [facility] Comment on above: Performed By: #### 1 4161116 ####[address] [place] [address] Musella.plasma/Musella .RBC (Bld) [Mass ratio] 0-3 Normal 0-3 [facility] Comment on above: Performed By: #### 1 6476181 ####[address] [place] [address] Nitrite Ql (U) Negative Normal Negative [facility] Comment on above: Performed By: #### 1 9075004 ####[address] [address] pH (U) 6.5 [pH] Invalid Interpretation Code 5.0-9.0 [facility] Comment on above: Performed By: #### 1 6948963 ####[address] [address] Protein (U) [Mass/Vol] Negative Normal Negative [facility] Comment on above: Performed By: #### 1 2395163 ####[address] [address] Specific gravity (U) [Rel density] 1.020 Invalid Interpretation Code 1.005-1.030 [facility] Comment on above: Performed By: #### 1 3804125 ####[address] [address] Type of Urine collection method Clean Catch Normal [facility] Comment on above: Performed By: #### 1 7871451 ####[address] [address] Urobilinogen Qn (U) 0.2 {Jan'U}/dL Normal 0.0-1.0 [facility] Comment on above: Performed By: #### 1 4943871 ####[address] [address] WBC Auto Ql (U) Negative Normal Negative [facility] Comment on above: Performed By: #### 1 5150421 ####Orr [facility] [address] [place] [address] WBC LM.HPF (Urine sed) [#/Area] 0-5 Normal 0-5 [facility] Comment on above: Performed By: #### 1 4809731 ####Kirby [facility] [address] [place] [address] URINALYSISOrdered By: Alfonso Hernandez on 05-26-2023 Bilirubin Ql (U) Negative (05/26/23 8:20 PM) Normal Negative [facility] UA Auto SS Clarity (U) Clear (05/26/23 [...] PM) Normal Negative [facility] UA Auto SS Musella.plasma/Musella .RBC (Bld) [Mass ratio] 0-3 /HPF Normal [...] [facility] UA Auto SS Urobilinogen Qn (U) 0.3042630 {Jan'U}/dL Normal 0.0 - 1.0 EU/dL [facility] UA Auto SS WBC Auto Ql (U) Negative (05/26/23 8:20 PM) Normal Negative [facility] UA Auto SS WBC LM.HPF (Urine sed) [#/Area] 0-5 /HPF Normal 0-5/HPF [facility] UA Auto SS ED Note-Physicianon 05-25-19 ED Note-Physician Normal [facility] Comment on above: Result Comment: Elec tronically Signed By: Landon Tidwell PA-C\.br\Date and Time Signed: 05/24/23 23:15 EST\.br\Electronically Co-Signed By: Pedro Pablo Fletcher DO\.br\Date and Time Co-Signed: 05/25/23 01:59 EST XR Spine Lumbosacral 2 or 3 Viewson 05-25-2023 XR Spine Lumbosacral 2 or 3 Views Normal [facility] Consent for Treatmenton Consent for Treatment [id number]#1.00T IFF Normal [facility] Discharge Instructionson Discharge Instructions [id number]#1.00TI FF Normal [facility] ED Clinical Summaryon 2023 ED Clinical Summary Normal [facility] ED Patient Education Noteon 05-24-2023 ED Patient Education Note Normal [facility] ED Patient Summaryon 024 ED Patient Summary Normal [facility] Hand / UE Inj/Asp: R thumb C MCon 05-20-2023 Belkis Hernandez DO 05/20/2023 9:07 AM Hand / UE [...] to verify the correct patient, procedure, equipment, security support analyst and site/side marked as required. Patient was prepped and draped in the usual sterile fashion. [facility] Work Phone: [facility] Work Phone: XR WRIST RIGHT 3+ VIEWSon XR WRIST RIGHT 3+ VIEWS Interpreted By: Belkis Hernandez, STUDY: XR WRIST RIGHT 3+ VIEWS; ; 05/20/2023 8:00 am INDICATION: Signs/Symptoms:Pain. ACCESSION NUMBER(S): [id number] ORDERING CLINICIAN: BELKIS HERNANDEZ FINDINGS: X-rays of the right wrist show no acute fracture or dislocation. Right thumb [facility] arthritis. Signed by: Belkis Hernandez 05/20/2023 3:12 PM Dictation workstation: [id number] [facility] ED Note-Physicianon 05-17-19 ED Note-Physician James [facility] Comment on above: Result Comment: Elec tronically Signed By: Robert Taylor PA-C\.br\Date and Time Signed: 05/14/23 11:56 EST\.br\Electronically Co-Signed By: Jorge Mcintosh DO\.br\Date and Time Co-Signed: 05/17/23 08:07 EST Senior Care Documentson 05-17-2023 Senior Care Documents [id number]#1.[address] [facility] Consent for Treatmenton 04-26 Consent for Treatment [id number]#1.00T IFF Normal [facility] Discharge Instructionson Discharge Instructions [id number]#1.00T IFF Normal [facility] ED Clinical Summaryon 2023 ED Clinical Summary Normal [facility] ED Note-Physicianon 05-16-19 ED Note-Physician [facility] Comment on above: Result Comment: Elec tronically Signed By: Robert Taylor PA-C\.br\Date and Time Signed: 05/16/23 16:54 EST\.br\Electronically Co-Signed By: Nikhil Tubbs DO\.br\Date and Time Co-Signed: 05/16/23 17:00 EST ED Patient Education Noteon 05-16-2023 ED Patient Education Note Normal [facility] ED Patient Summaryon ED Patient Summary Normal [facility] Consent for Treatmenton 04-26 Consent for Treatment [id number]#1.00T IFF Normal [facility] Discharge Instructionson Discharge Instructions [id number]#1.[address] [facility] ED Clinical Summaryon 2023 ED Clinical Summary Normal [facility] ED Patient Education Noteon 05-14-2023 ED Patient Education Note Normal [facility] ED Patient Summaryon ED Patient Summary Normal [facility] ED Note-Physicianon 05-13-19 ED Note-Physician [facility] Comment on above: Result Comment: Elec tronically Signed By: Landon Tidwell PA-C.br\Date and Time Signed: 05/11/23 17:24 EST\.br\Electronically Co-Signed By: Jorge Mcintosh DO\.br\Date and Time Co-Signed: 05/13/23 07:06 EST Consent for Treatmenton 04-25 Consent for Treatment [id number]#1.00T IFF Normal [facility] Discharge Instructionson Discharge Instructions [id number]#1.00 TIFF Normal [facility] ED Clinical Summaryon 2023 ED Clinical Summary Normal [facility] ED Note-Physicianon 05-12-19 ED Note-Physician Normal [facility] Comment on above: Result Comment: Elec tronically Signed By: Nikhil Tubbs DO\.br\Date and Time Signed: 05/12/23 11:06 EST ED Patient Education Noteon 05-12-2023 ED Patient Education Note Normal [facility] ED Patient Summaryon ED Patient Summary Normal [facility] Consent for Treatmenton 04-25 Consent for Treatment [id number]#1.00T IFF Normal [facility] Discharge Instructionson Discharge Instructions [id number]#1.00T IFF Normal [facility] ED Clinical Summaryon 2023 ED Clinical Summary Normal [facility] ED Patient Education Noteon 05-11-2023 ED Patient Education Note Normal [facility] ED Patient Summaryon 024 ED Patient Summary Normal [facility] XR Hand 3+ Views Righton XR Hand 3+ Views Right Normal [facility] XR Wrist 3+ Views Righton XR Wrist 3+ Views Right Normal [facility] ED Note-Physicianon 05-09-19 ED Note-Physician Normal [facility] Comment on above: Result Comment: Elec tronically Signed By: Landon Tidwell PA-C\.br\Date and Time Signed: 05/08/23 14:03 EST\.br\Electronically Co-Signed By: Balbina Bryant M.D.\.br\Date and Time Co-Signed: 05/09/23 07:48 EST BMPon 05-08-2023 Anion gap [Moles/Vol] 12 mmol/L Normal 6-16 [facility] Comment on above: Performed By: #### 2 227858, 6940063, 55461058, 5721176, 5613966 ####[facility] [address] [place] [address] BUN/Creat Ratio 21 No Units High 10-20 [facility] Comment on above: Performed By: #### 2 084935, 2029443, 93790904, 2233423, 4199435 ####[facility] [address] [place] [address] Calcium [Mass/Vol] 8.4 mg/dL Low 8.9-11.1 [facility] Comment on above: Performed By: #### 2 207874, 7320602, 76515650, 0402138, 3756397 ####[facility] [address] [place] [address] Chloride [Moles/Vol] 105 mmol/L Normal 101-111 [facility] Comment on above: Performed By: #### 2 064852, 1143026, 78573713, 8099969, 7268274 ####[facility] [address] [place] [address] CO2 [Moles/Vol] 24 mmol/L Normal 21-31 [facility] Comment on above: Performed By: #### 2 590239, 2499136, 51934823, 2359774, 4325802 ####[facility] [address] [place] [address] Creatinine [Mass/Vol] 0.7 mg/dL Normal 0.5-1.3 [facility] Comment on above: Performed By: #### 2 729844, 9502347, 07496243, 2744834, 4075438 ####[facility] [address] [place] [address] Glucose [Mass/Vol] 107 mg/dL Normal 55-199 [facility] Comment on above: Performed By: #### 2 567285, 4115162, 25037828, 2958446, 1859788 ####[address] [address] Potassium [Moles/Vol] 4.1 mmol/L Normal 3.5-5.3 [facility] Comment on above: Performed By: #### 2 146702, 2833063, 52072761, 3706519, 6872947 ####[address] [address] Sodium [Moles/Vol] 137 mmol/L Normal 135-145 [facility] Comment on above: Performed By: #### 2 470978, 3122998, 43830397, 9430757, 9006305 ####[address] [address] Urea nitrogen [Mass/Vol] 15 mg/dL Normal 5-21 [facility] Comment on above: Performed By: #### 2 845999, 7724280, 35042508, 7614900, 6035650 ####[address] [address] CBC w/ Auto Diffon 4 Basophil Absolute 0.1 E9/L Normal 0.0-0.2 [facility] Comment on above: Performed By: #### 2 372133, 8310467, 12049220, 7016211, 3168889 ####[address] [address] Basophils/100 WBC (Bld) 0.8 % Normal 0.0-2.0 [facility] Comment on above: Performed By: #### 2 002032, 4416948, 19381228, 8844807, 0572029 ####[facility] [address] [place] [address] Eos Absolute 0.2 E9/L Normal 0.0-0.5 [facility] Comment on above: Performed By: #### 2 470493, 6743684, 95223533, 3399476, 5128139 ####[address] [place] [address] Eosinophils/100 WBC (Bld) 2.0 % Normal 0.0-8.0 [facility] Comment on above: Performed By: #### 2 265629, 6878998, 11945104, 8953557, 2467376 ####[place] [address] Erythrocyte distribution width (RBC) [Ratio] 13.1 % Normal 10.9-14.2 [facility] Comment on above: Performed By: #### 2 479273, 3660903, 49001295, 9055060, 6306308 ####[place] [address] Hematocrit (Bld) [Volume fraction] 44.0 % Normal 34.0-46.0 [facility] Comment on above: Performed By: #### 2 526624, 2534517, 55426619, 5161870, 1799600 ####[address] [address] Hemoglobin (Bld) [Mass/Vol] 15.0 g/dL Normal 12.0-16.0 [facility] Comment on above: Performed By: #### 2 805965, 1850717, 69581695, 4580916, 5526662 ####[address] [address] Lymph Absolute 3.1 E9/L Normal 1.0-4.0 [facility] Comment on above: Performed By: #### 2 585296, 5553372, 75207562, 4374155, 5709960 ####[address] [address] Lymphocytes/100 WBC (Bld) 35.0 % Normal 14.0-50.0 [facility] Comment on above: Performed By: #### 2 889871, 5200989, 85240126, 6280562, 9493386 ####[facility] [address] [place] [address] MCH (RBC) [Entitic mass] 32.2 pg Normal 27.0-34.0 [facility] Comment on above: Performed By: #### 2 659753, 9923735, 15234740, 9425459, 9135809 ####[address] [address] MCHC (RBC) [Mass/Vol] 34.3 g/dL Normal 31.4-36.0 [facility] Comment on above: Performed By: #### 2 357488, 8113933, 62424744, 5860122, 1195362 ####[address] [address] MCV (RBC) [Entitic vol] 94.0 fL Normal 80.0-100.0 [facility] Comment on above: Performed By: #### 2 799584, 7381067, 95267560, 2974994, 0478172 ####[address] [address] [place] Absolute 0.6 E9/L Normal 0.2-1.[address] [facility] Comment on above: Performed By: #### 2 945897, 9308162, 40740749, 3124758, 5199784 ####[address] [address] Monocytes/100 WBC (Bld) 6.9 % Normal 4.0-14.0 [facility] Comment on above: Performed By: #### 2 350230, 4069796, 48909879, 1916320, 6491968 ####[place] [address] Neutro Absolute 5.0 E9/L Normal 2.0-7.5 [facility] Comment on above: Performed By: #### 2 939953, 7336878, 80309853, 4104251, 3203431 ####[facility] [address] [place] [address] Neutro Auto 55.3 % Normal 36.0-75.0 [facility] Comment on above: Performed By: #### 2 465958, 3758212, 88260517, 2600091, 8893900 ####[address] [address] Platelet 279.0 E9/L Normal 150.0-500.0 [facility] Comment on above: Performed By: #### 2 017713, 4170503, 67936424, 0094982, 1219700 ####[address] [address] Platelet mean volume (Bld) [Entitic vol] 9.1 fL Normal 6.4-10.8 [facility] Comment on above: Performed By: #### 2 747768, 5443936, 50204344, 7037526, 4372530 ####[address] [address] RBC 4.7 E12/L Normal 4.3-5.9 [facility] Comment on above: Performed By: #### 2 129589, 7706249, 09252590, 7046366, [id number] ####[address] [address] WBC 9.0 E9/L Normal 4.0-11.0 [facility] Comment on above: Performed By: #### 2 923996, 0459544, 26530150, 4014427, 6342762 ####[address] [address] CHEMISTRYOrdered By: SYSTEM SYSTEM on 05-08-2023 Albumin [...] for Treatmenton 04-25 Consent for Treatment [id number]#1.00T IFF Normal [facility] Discharge Instructionson Discharge Instructions [id number]#1.00 TIFF Normal [facility] ED Clinical Summaryon 2023 ED Clinical Summary Normal [facility] ED Patient Education Noteon 05-08-2023 ED Patient Education Note Normal [facility] ED Patient Summaryon 024 ED Patient Summary Normal [facility] HEMATOLOGYOrdered By: SYSTEM SYSTEM on 05-08-2023 [...] Normal 80.0 - 100.0 fL Remisol Heme [place] Absolute 0.6 E9/L Normal 0.2 - 1.0 [...] 05-08-2023 Albumin [Mass/Vol] 4.1 g/dL Normal 3.3-5.0 [facility] Comment on above: Performed By: #### 2 556419, 1899448, 66357281, 0396141, 9708609 ####[facility] [address] [place] [address] Albumin/Globulin [Mass ratio] 1.3 {ratio} Normal 1.1-2.2 [facility] Comment on above: Performed By: #### 2 210839, 4944745, 37362673, 0147705, 2874980 ####[facility] [address] [place] [address] Alk Phos 80 Int._Unit/L Normal 21-98 [facility] Comment on above: Performed By: #### 2 104018, 5305507, 35524391, 5910599, 0279176 ####[facility] [address] [facility] [place] [address] ALT 57 Int._Unit/L High 6-46 [facility] Comment on above: Performed By: #### 2 611712, 6742522, 59032471, 2105282, 3460821 ####[facility] [address] [place] [address] AST 27 Int._Unit/L Normal 5-43 [facility] Comment on above: Performed By: #### 2 554422, 8935495, 39061239, 8333331, 3002895 ####[facility] [address] [place] [address] Bili Direct 0.1 mg/dL Normal 0.0-0.4 [facility] Comment on above: Performed By: #### 2 442464, 7845302, 03591858, 7159685, 5101760 ####[facility] [address] [place] [address] Bili Indirect 0.4 mg/dL Normal 0.1-0.[address] [facility] Comment on above: Performed By: #### 2 980242, 2018238, 63706920, 2029305, 3958731 ####[facility] [address] [place] [address] Bili Total 0.5 mg/dL Normal 0.0-1.1 [facility] Comment on above: Performed By: #### 2 153948, 1919385, 14070583, 6834592, 9340859 ####[facility] [address] [place] [address] Globulin (S) [Mass/Vol] 3.2 g/dL Normal 1.4-4.0 [facility] Comment on above: Performed By: #### 2 297371, 5442769, 64024725, 7568896, 3641567 ####[address] [place] [address] Protein [Mass/Vol] 7.3 g/dL Normal 6.0-7.8 [facility] Comment on above: Performed By: #### 2 299198, 2239489, 48540841, 6074786, 0464349 ####[address] [place] [address] Lipase Levelon 05-08-2023 Lipase Lvl 26 unit/L Normal 13-58 [facility] Comment on above: Performed By: #### 2 481077, 2906723, 16717335, 8671707, 6041125 ####[facility] [address] [place] [address] eGFRon 05-08-2023 eGFR 108 mL/min/1.73 m2 Normal >=59 [facility] Comment on above: Order Comment: Order added by Discern Expert. Performed By: #### 2 529991, 6297855, 53829367, 0557737, 7736245 ####[facility] [address] [place] [address] Discharge Instructionson Discharge Instructions [id number]#1.00T IFF Normal [facility] ED Note-Physicianon 05-05-19 ED Note-Physician Normal [facility] Comment on above: Result Comment: Elec tronically Signed By: Landon Tidwlel PA-C\.br\Date and Time Signed: 05/04/23 22:33 EST\.br\Electronically Co-Signed By: Pedro Pablo Fletcher DO\.br\Date and Time Co-Signed: 05/05/23 19:43 EST Consent for Treatmenton 04-25 Consent for Treatment [id number]#1.00T IFF Normal [facility] ED Clinical Summaryon 2023 ED Clinical Summary Normal Osbaldo martinez [facility] ED Note-Nursingon 05-04-2023 ED Note-Nursing Pt. refused staying for 30 minutes more for observation after receiving pain meds, said she always get immediately discharged after receiving the medications. Demanded leaving at this time. Normal [facility] ED Patient Education Noteon 05-04-2023 ED Patient Education Note Normal [facility] ED Patient Summaryon 024 ED Patient Summary Normal [facility] B hCG Qualon 04-30-2023 Beta HCG ( test) Ql Negative Normal [facility] Comment on above: Performed By: #### 2 5068056, 1420332, 8655297, 5939914, 7809008, 01758726, 6346736 ####[facility] [address] [place] [address] BMPon 04-30-2023 Anion gap [Moles/Vol] 12 mmol/L Normal 6-16 [facility] Comment on above: Performed By: #### 2 7476545, 6658835, 6301553, 2053439, 0136552, 30819468, 5856779 ####[facility] [address] [place] [address] BUN/Creat Ratio 21 No Units High 10-20 [facility] Comment on above: Performed By: #### 2 1094548, 8585225, 3386847, 2463404, 8081635, 31141271, 6239302 ####[facility] [address] [place] [address] Calcium [Mass/Vol] 8.6 mg/dL Low 8.9-11.1 [facility] Comment on above: Performed By: #### 2 5060091, 1853598, 6282625, 7201589, 3238766, 00992392, 9114681 ####[facility] [address] [place] [address] Chloride [Moles/Vol] 106 mmol/L Normal 101-111 [facility] Comment on above: Performed By: #### 2 8450594, 0717450, 5766299, 6830948, 7576981, 09519861, 7030484 ####[facility] [address] [place] [address] CO2 [Moles/Vol] 24 mmol/L Normal 21-31 [facility] Comment on above: Performed By: #### 2 5391733, 7325346, 2653572, 4828086, 4379155, 08718994, 8207612 ####[facility] [address] [place] [address] Creatinine [Mass/Vol] 0.7 mg/dL Normal 0.5-1.3 [facility] Comment on above: Performed By: #### 2 0899385, 1164957, 4467882, 8576429, 1208488, 08780537, 0005267 ####[facility] [address] [place] [address] Glucose [Mass/Vol] 83 mg/dL Normal 55-199 [facility] Comment on above: Performed By: #### 2 6923830, 3548325, 7707230, 4179008, 0145666, 92129905, 6319749 ####[facility] [address] [place] [address] Potassium [Moles/Vol] 4.1 mmol/L Normal 3.5-5.3 [facility] Comment on above: Performed By: #### 2 6621750, 9006394, 1449955, 8305383, 6366277, 82382731, 6263151 ####[address] [address] Sodium [Moles/Vol] 138 mmol/L Normal 135-145 [facility] Comment on above: Performed By: #### 2 0993239, 0467738, 4682199, 4096870, 3982265, 87272647, 5029290 ####[facility] [address] [place] [address] Urea nitrogen [Mass/Vol] 15 mg/dL Normal 5-21 [facility] Comment on above: Performed By: #### 2 2045135, 2725384, 5185557, 5225078, 4137020, 55738678, 8533112 ####[facility] [address] [place] [address] CBC w/ Auto Diffon 4 Basophil Absolute 0.0 E9/L Normal 0.0-0.2 [facility] Comment on above: Performed By: #### 2 1545668, 1351804, 0099126, 2994563, 4008150, 50305459, 8839520 ####[facility] [address] [place] [address] Basophils/100 WBC (Bld) 0.6 % Normal 0.0-2.0 [facility] Comment on above: Performed By: #### 2 9972439, 7295362, 9544761, 8468317, 6016482, 05454566, 2688103 ####[facility] [address] [place] [address] Eos Absolute 0.2 E9/L Normal 0.0-0.5 [facility] Comment on above: Performed By: #### 2 1742822, 3616424, 9131871, 7765901, 9133228, 38952029, 6904407 ####[place] Eosinophils/100 WBC (Bld) 2.5 % Normal 0.0-8.0 [facility] Comment on above: Performed By: #### 2 7225176, 3081978, 7061283, 3058971, 5135554, 39966090, 0549647 ####[address] [address] Erythrocyte distribution width (RBC) [Ratio] 13.3 % Normal 10.9-14.2 [facility] Comment on above: Performed By: #### 2 2036318, 8610622, 2547226, 2279730, 7648941, 68769558, 7733786 ####[place] Hematocrit (Bld) [Volume fraction] 43.0 % Normal 34.0-46.0 [facility] Comment on above: Performed By: #### 2 0607994, 4527926, 5798842, 7119360, 3940988, 84805008, 2250864 ####[address] [address] Hemoglobin (Bld) [Mass/Vol] 14.3 g/dL Normal 12.0-16.0 [facility] Comment on above: Performed By: #### 2 3738253, 7697979, 8854278, 4756859, 1004037, 05383809, 6640779 ####[address] [address] Lymph Absolute 2.2 E9/L Normal 1.0-4.0 [facility] Comment on above: Performed By: #### 2 6744222, 0441860, 2861627, 1654200, 4169865, 21856067, 0584759 ####[address] [address] Lymphocytes/100 WBC (Bld) 26.7 % Normal 14.0-50.0 [facility] Comment on above: Performed By: #### 2 0696374, 3740080, 7591283, 8897769, 5264902, 17437539, 9583027 ####[address] [address] MCH (RBC) [Entitic mass] 31.7 pg Normal 27.0-34.0 [facility] Comment on above: Performed By: #### 2 0288607, 0296051, 1955584, 0911528, 2003022, 95429769, 5368498 ####[place] [address] MCHC (RBC) [Mass/Vol] 33.5 g/dL Normal 31.4-36.0 [facility] Comment on above: Performed By: #### 2 4236624, 0434287, 2036197, 0927442, 2204220, 67008813, 7589104 ####[address] [address] MCV (RBC) [Entitic vol] 94.6 fL Normal 80.0-100.0 [facility] Comment on above: Performed By: #### 2 4357898, 7396730, 2715548, 6076300, 4262179, 78362951, 9067018 ####[address] [address] [place] Absolute 0.7 E9/L Normal 0.2-1.[address] [facility] Comment on above: Performed By: #### 2 4435199, 9168705, 8382334, 9837633, 1449854, 90567865, 1272038 ####[address] [place] [address] Monocytes/100 WBC (Bld) 8.4 % Normal 4.0-14.0 [facility] Comment on above: Performed By: #### 2 8176262, 6327728, 8934140, 4906085, 3897631, 99423714, 8162615 ####[address] [address] Neutro Absolute 5.0 E9/L Normal 2.0-7.5 [facility] Comment on above: Performed By: #### 2 4755722, 4631702, 0116353, 3670701, 8112507, 68705358, 4009728 ####[place] [address] Neutro Auto 61.8 % Normal 36.0-75.0 [facility] Comment on above: Performed By: #### 2 8881616, 7281780, 1317293, 9568793, 6635341, 93112400, 5521250 ####[address] [address] Platelet 303.0 E9/L Normal 150.0-500.0 [facility] Comment on above: Performed By: #### 2 0650340, 8680375, 3616895, 6234264, 2623478, 13846022, 6805895 ####[address] [address] Platelet mean volume (Bld) [Entitic vol] 9.1 fL Normal 6.4-10.8 [facility] Comment on above: Performed By: #### 2 4265860, 0141533, 3332946, 6550373, 2276333, 29839000, 5151718 ####[address] [address] RBC 4.5 E12/L Normal 4.3-5.9 [facility] Comment on above: Performed By: #### 2 3191649, 9673759, 1086906, 5664501, 1060269, 12342702, 7852041 ####[facility] [address] [place] [address] WBC 8.1 E9/L Normal 4.0-11.0 [facility] Comment on above: Performed By: #### 2 6496212, 2865213, 2852213, 9166922, 8479238, 50420101, 8614362 ####[facility] [address] [place] [address] CT Abdomen/Pelvis w/ Contras ton 04-30-2023 CT Abdomen/Pelvis w/ Contrast Normal [facility] Consent for Treatmenton Consent for Treatment [id number]#1.00T IFF Normal [facility] Discharge Instructionson Discharge Instructions [id number]#1.00T IFF Normal [facility] ED Clinical Summaryon 2023 ED Clinical Summary Normal [facility] ED Note-Physicianon 04-30-19 ED Note-Physician Normal [facility] Comment on above: Result Comment: Elec tronically Signed By: Elisa Sánchez DO.br\Date and Time Signed: 04/30/23 21:02 EST ED Patient Education Noteon 04-30-2023 ED Patient Education Note Normal [facility] ED Patient Summaryon 024 ED Patient Summary Normal [facility] Hep Func Panelon 04-30-2023 Albumin [Mass/Vol] 3.9 g/dL Normal 3.3-5.0 [facility] Comment on above: Performed By: #### 2 8220311, 7330580, 9209025, 7286269, 1983298, 45785694, 4527178 ####[facility] [address] [place] [address] Albumin/Globulin [Mass ratio] 1.3 {ratio} Normal 1.1-2.2 [facility] Comment on above: Performed By: #### 2 9199706, 7346939, 1062055, 5776712, 3816231, 86742750, 0140766 ####[facility] [address] [facility] [place] [address] Alk Phos 84 Int._Unit/L Normal 21-98 [facility] Comment on above: Performed By: #### 2 3114641, 7057936, 0812364, 0911990, 8801437, 42961626, 5995896 ####[facility] [address] [place] [address] ALT 118 Int._Unit/L High 6-46 [facility] Comment on above: Performed By: #### 2 7150120, 0048352, 8448771, 3195806, 5971529, 47317092, 7348692 ####[facility] [address] [place] [address] AST 83 Int._Unit/L High 5-43 [facility] Comment on above: Performed By: #### 2 8992057, 1213911, 7280971, 6071154, 9201186, 99836648, 8478505 ####[facility] [address] [place] [address] Bili Direct 0.1 mg/dL Normal 0.0-0.4 [facility] Comment on above: Performed By: #### 2 9946825, 6612948, 9745965, 7041592, 3458182, 15283240, 2415375 ####[facility] [address] [place] [address] Bili Indirect 0.2 mg/dL Normal 0.1-0.[address] [facility] Comment on above: Performed By: #### 2 5938578, 9208583, 5648292, 8756722, 7045064, 33105490, 0486285 ####[facility] [address] [place] [address] Bili Total 0.3 mg/dL Normal 0.0-1.1 [facility] Comment on above: Performed By: #### 2 2381099, 5986175, 7547657, 4211962, 4505935, 39549933, 5188155 ####[facility] [address] [place] [address] Globulin (S) [Mass/Vol] 3.0 g/dL Normal 1.4-4.0 [facility] Comment on above: Performed By: #### 2 0099568, 3784207, 5668779, 3134232, 1867125, 66067379, 8895595 ####[facility] [address] [place] [address] Protein [Mass/Vol] 6.9 g/dL Normal 6.0-7.8 [facility] Comment on above: Performed By: #### 2 6426401, 8057952, 1133339, 5733239, 9801685, 24780724, 5608317 ####[facility] [address] [place] [address] Lactic Acidon 04-30-2023 Lactic Acid Lvl 1.3 mmol/L Normal 0.5-2.2 [facility] Comment on above: Performed By: #### 2 8384806, 2639870, 3448258, 2887450, 2704488, 41950372, 1951867 ####[facility] [address] [place] [address] Lipase Levelon 04-30-2023 Lipase Lvl 29 unit/L Normal 13-58 [facility] Comment on above: Performed By: #### 2 9110934, 8901391, 7364127, 3321207, 8914722, 73882147, 7146898 ####[facility] [address] [place] [address] MRI Cholangiogram Pancreatog abdulkadir (mrcp)on 04-30-2023 MRI Cholangiogram Pancreatography (mrcp) Normal [facility] RAD - MRI Screening Formon 0 04-30-2023 RAD - MRI Screening Form [id number]#1.00 TIFF Normal [facility] UA With Cult Reflexon 2023 Bacteria LM Ql (Urine sed) TRACE Normal Trace [facility] Comment on above: Performed By: #### 1 7556619 ####[facility] [address] [place] [address] Bilirubin Ql (U) Negative Normal Negative [facility] Comment on above: Performed By: #### 1 3347243 ####[facility] [address] [place] [address], [place] [address] Clarity (U) CLEAR Normal Clear [facility] Comment on above: Performed By: #### 1 5630870 ####[facility] [address] [facility] [place] [address] Color (U) YELLOW Normal Yellow [facility] Comment on above: Performed By: #### 1 9170445 ####[address] [address] Epithelial cells.squamous LM.HPF (Urine sed) [#/Area] 5-8 Normal 0-[address] [facility] Comment on above: Performed By: #### 1 5016032 ####[facility] [address] [facility] [place] [address] Glucose Test strip (U) [Mass/Vol] Negative Normal Negative [facility] Comment on above: Performed By: #### 1 1903714 ####[facility] [address] [facility] [place] [address] Hemoglobin Ql (U) Negative Normal Negative [facility] Comment on above: Performed By: #### 1 2004779 ####[facility] [address] [place] [address] Ketones (U) [Mass/Vol] Negative Normal Negative [facility] Comment on above: Performed By: #### 1 3579427 ####[address] [address] Musella.plasma/Musella .RBC (Bld) [Mass ratio] 0-3 Normal 0-3 [facility] Comment on above: Performed By: #### 1 3811728 ####[facility] [address] [place] [address] Nitrite Ql (U) Negative Normal Negative [facility] Comment on above: Performed By: #### 1 5318735 ####[address] [place] [address] pH (U) 5.5 [pH] Invalid Interpretation Code 5.0-9.0 [facility] Comment on above: Performed By: #### 1 2467290 ####[address] [address] Protein (U) [Mass/Vol] Negative Normal Negative [facility] Comment on above: Performed By: #### 1 3467681 ####[address] [address] Specific gravity (U) [Rel density] 1.010 Invalid Interpretation Code 1.005-1.030 [facility] Comment on above: Performed By: #### 1 0271785 ####[address] [address] Type of Urine collection method Clean Catch Normal [facility] Comment on above: Performed By: #### 1 8693134 ####[address] [address] Urobilinogen Qn (U) 0.2 {Jan'U}/dL Normal 0.0-1.0 [facility] Comment on above: Performed By: #### 1 3289539 ####[address] [address] WBC Auto Ql (U) Negative Normal Negative [facility] Comment on above: Performed By: #### 1 7809200 ####[address] [address] WBC LM.HPF (Urine sed) [#/Area] 0-5 Normal 0-5 [facility] Comment on above: Performed By: #### 1 6410159 ####[address] [address] eGFRon 04-30-2023 eGFR 108 mL/min/1.73 m2 Normal >=59 [facility] Comment on above: Order Comment: Order added by Discern Expert. Performed By: #### 2 9474020, 7525499, 6008944, 8749647, 2961712, 88454453, 1289662 ####[facility] [address] [place] [address] ED NOTESon 04-28-2023 [facility] Note ED Note: Last filed note HNO ID: [id number] Author: Laurita Baires, DARSHAN Service: Length of Stay Author Type: Registered Nurse Filed: 04/28/23 003 Note Text: Patient discharged to home, alert and oriented, skin warm, dry and pink. Denies needs and or questions. Will follow-up as directed, patient encouraged to return for worsening or new symptoms or other concerns. Normal [facility] Ed Note ED Note: Last filed note HNO ID: [id number] Author: Laurita Baires, DARSHAN Service: Length of Stay Author Type: Registered Nurse Filed: 04/28/23 003 Note Text: Pt ambulated to restroom with steady gait. Pt states her pain has improved and is now 5/10 and tolerable. Physician aware. HNO ID: [id number] Author: Laurita Baires RN Service: Length of Stay Author Type: Registered Nurse Filed: 04/28/23 0030 Note Text: Pt ambulated to restroom with steady gait. Pt states her pain has improved and is now 5/10 and tolerable. Normal [facility] ED PROVIDER NOTESon 04-28-19 [facility] Provider Note ED Provider Note: Pepe ast filed note HNO ID: [id number] Author: Sal Juarez MD Service: Emergency Medicine Author Type: Physician Filed: 04/28/23 0502 Note Text: ATTENDING NOTE I have personally [...] normal Romberg exam. Sun Apr 28, 2023 002 Patient is feeling improved status post therapeutics. Ambulatory in the emergency department. Electronically signed by: Sal Juarez MD, 04/28/2023 5:07 AM [facility] ED NOTESon 04-27-2023 [facility] Note ED Note: Last filed note HNO ID: [id number] Author: Laurita Baires RN Service: Length of Stay Author Type: Registered Nurse Filed: 04/27/23 2267 Note Text: To bedside for rounding. Pt medicated for 10/10 pain per MAR. Pt resting quietly. No other needs expressed at this time. Call light in reach. Normal [facility] Ed Note ED Note: Last filed note HNO ID: [id number] Author: Laurita Baires RN Service: Length of Stay Author Type: Registered Nurse Filed: 04/27/23 2301 Note Text: To bedside to introduce self to pt and address needs. Resident at bedside. Pt resting quietly. No needs expressed at this time. Call light within reach. Normal [facility] ED Note-Physicianon 04-27-19 ED Note-Physician Normal [facility] Comment on above: Result Comment: Elec tronically Signed By: Angelic Reece PA-C\.br\Date and Time Signed: 04/25/23 10:27 EST\.br\Electronically Co-Signed By: Pedro Pablo Fletcher DO\.br\Date and Time Co-Signed: 04/27/23 20:17 EST ED PROVIDER NOTESon 04-27-19 [facility] Provider Note ED Provider Note: Pepe ast filed note HNO ID: [id number] Author: Sharan Hwang MD Service: Emergency Medicine [...] with se (more content not included)... Normal [facility] ED TRIAGEon 04-27-2023 [facility] Triage Note ED Triage Note: Last filed note HNO ID: [id number] Author: Rebecca Gómez, RN Service: Emergency Medicine Author Type: Registered Nurse Filed: 04/27/23 4958 Note Text: Patient arrives to triage stating she has a herniated L4-L5 disc, got on an inversion table tonight and is now having back pain. Denies any other injury or complaints. A Normal [facility] Consent for Treatmenton Consent for Treatment [id number]#1.00T IFF Normal [facility] Discharge Instructionson Discharge Instructions [id number]#1.00T IFF Normal [facility] ED Clinical Summaryon 2023 ED Clinical Summary Normal [facility] ED Note-Physicianon 04-26-19 ED Note-Physician Normal [facility] Comment on above: Result Comment: Elec tronically Signed By: Balbina Bryant M.D.\.br\Date and Time Signed: 04/26/23 10:46 EST ED Patient Education Noteon 04-26-2023 ED Patient Education Note Normal [facility] ED Patient Summaryon 024 ED Patient Summary Normal [facility] ED Note-Physicianon 04-23-19 ED Note-Physician Normal [facility] Comment on above: Result Comment: Elec tronically Signed By: aLndon Tidwell PA-C.br\Date and Time Signed: 04/22/23 20:40 EST\.br\Electronically Co-Signed By: Landon Tidwell PA-C.br\Date and Time Co-Signed: 04/22/23 20:40 EST\.br\Electronically Co-Signed By: Pedro Pablo Fletcher DO.br\Date and Time Co-Signed: 04/23/23 00:21 EST Consent for Treatmenton 03-26 Consent for Treatment [id number]#1.00T IFF Normal [facility] Discharge Instructionson Discharge Instructions [id number]#1.00 TIFF Normal [facility] ED Clinical Summaryon 2023 ED Clinical Summary Normal [facility] ED Patient Education Noteon 04-22-2023 ED Patient Education Note Normal [facility] ED Patient Summaryon 024 ED Patient Summary Normal [facility] XR shoulder LT min 2V*on XR shoulder LT min 2V* [facility] [address] XRay Report Signed Patient: Jerad Tracy MR#: [id number] 49 : 1975 Acct:[id number] Age/Sex: 48 / F ADM Date: 04/12/23 Loc: ER Room: Type: [facility] ER Attending Dr: Copies to: Joshua Ferrell [...] Velazquez Jr., D.O.04/12/2023 2:36 PM Dictation Location: [place] [address] Transcribed By: [facility] 04/12/23 1436 Dictated By: Johan Velazquez Jr, DO 04/12/23 1435 Signed By: 04/12/23 1436 James [facility] CT Spine Lumbar w/o Contrast on 04-11-2023 CT Spine Lumbar w/o Contrast Normal [facility] CT Spine Thoracic w/o Contra ston 04-11-2023 CT Spine Thoracic w/o Contrast Normal [facility] Consent To Leave AMAon 04-11 Consent To Leave AMA [id number]#1.00 TIFF Normal [facility] Consent for Treatmenton 03-25 Consent for Treatment [id number]#1.00T IFF Normal [facility] Discharge Instructionson Discharge Instructions [id number]#1.0 0TIFF Normal [facility] ED Clinical Summaryon 2023 ED Clinical Summary Normal [facility] ED Clinical Summary Normal [facility] ED Note-Nursingon 04-11-2023 ED Note-Nursing Patient requesting t o leave AMA at this time. Dr. Fletcher made aware. Patient ambulatory upon exit with spouse. Normal [facility] ED Note-Nursing Patient offered additional medication. Patient states no relief from original medication. Patient refused additional medications. Patient states I can just do that at home. Dr. Fletcher made aware. Normal [facility] ED Note-Nursing Patient updated with plan at this time, aware of awaiting ct results. Normal [facility] ED Note-Physicianon 04-11-19 ED Note-Physician [facility] Comment on above: Result Comment: Elec tronically Signed By: Robert Taylor PA-C\.br\Date and Time Signed: 04/11/23 18:59 EST\.br\Electronically Co-Signed By: Balbina Bryant M.D.\.br\Date and Time Co-Signed: 04/11/23 19:13 EST ED Patient Education Noteon 04-11-2023 ED Patient Education Note Normal [facility] ED Patient Education Note Normal [facility] ED Patient Summaryon 024 ED Patient Summary Normal [facility] ED Patient Summary Normal [facility] RAD - Preliminary Cat Scan R eporton 04-11-2023 RAD - Preliminary Cat Scan Report [id number]#1.00 TIFF Normal [facility] XR Spine Lumbosacral 2 or 3 Viewson 04-11-2023 XR Spine Lumbosacral 2 or 3 Views Normal [facility] Consent for Treatmenton 03-25 Consent for Treatment [id number]#1.00T IFF Normal [facility] CT Spine Lumbar w/o Contrast on [...] above for additional findings. Radiation Dose Estimate: CTDI(mGy):0.511743 / / / kVp:120.790188 / mAs:0.815053 / / / DLP(mGy-cm):3.670317Pqk y Part: CTDI(mGy):49.957585 / / / kVp:140.705299 / mAs:341.802090 / / / DLP(mGy-cm):1330.955959 Body Part: Final Dictated by: Kem Childers MD Dictated DT/TM: 04.08.2023 7:30 pm Signed by: Kem Childers MD Signed (Electronic Signature): 04.08.2023 7:37 pm (If Report Is Signed, Electronically Signed in Other Vendor System) Normal [facility] ED Clinical Summaryon 2023 ED Clinical Summary (Inserted Image. Darlene ble to display) [place] [address] ED Clinical Summary Person Information Name: Jerad Tracy/[facility] Age: 48 Years : 1975 Sex: Female PCP: Marital Status: Phone: Race: White Ethnicity: Not or Language: Cambodian [facility]: [id number] Visit Reason: Back pain; back pain Acuity: 4 Enc Type: Emergency Med Service: Emergency Medicine Arrival: 04/08/2023 16:48:15 Discharge: 04/08/2023 20:40:00 LOS: 000 03:52 Checkin: 04/08/2023 16:48:15 Checkout: 04/08/2023 20:40:00 Dispo Type: Home or Self Care Address: [address] [place] [address] [phone] Provider Notes: Diagnosis: 1:Lumbar pain; 2:Bulging lumbar [...] Dory Castañeda PA-C ED MidLevel 04/08/2023 17:53:27 Jose EnriqueSlime ED Nurse 04/08/2023 18:05:26 Follow up: With: Address: When: Emergency Department Comments: Return to Emergency Department immediately for any new or worsening smyptoms, or if symptoms last longer than discussed. With: Address: When: Physician Referral Line Comments: [facility] Referral Line [phone] to establish PCP Discharge Orders: Discharge Patient 04/08/23 20:15:00 EST, Discharge to Home, Self, Lumbar pain Patient Education Information: Degenerative Disk Disease [facility] Poison Help line: . [facility] Hotline: [place] Tobacco Quit Line: [place], [place]) [address]: [phone] [place], [place]) [address]: [phone] [facility] [address] [place], [place]: [phone] [facility] ED Note-Physicianon 04-08-19 ED Note-Physician [...] and appropria (more content not included)... Normal [facility] Auto Diffon 04-05-2023 Basophils/100 WBC (Bld) 0.4 % Normal 0.0-2.0 [facility] Comment on above: Order Comment: Order Added by Discern Expert. Performed By: #### 2 505903, 4051522, 3302371, 0711688, 1721248, 95585253 ####[facility] [address] [place] [address] Basophils/Leukocytes Auto (Bld) [Pure # fraction] 0.0 E9/L Normal 0.0-0.2 [facility] Comment on above: Order Comment: Order Added by Gregory Expert. Performed By: #### 2 829130, 7320512, 1135431, 2371867, 3578762, 87575747 ####[facility] [address] [place] [address] Eosinophils/100 WBC (Bld) 2.3 % Normal 0.0-8.0 [facility] Comment on above: Order Comment: Order Added by Discern Expert. Performed By: #### 2 479728, 7580409, 8159455, 2643673, 4562014, 97952477 ####[facility] [address] [place] [address] Eosinophils/Leukocytes Auto (Bld) [Pure # fraction] 0.2 E9/L Normal 0.0-0.5 [facility] Comment on above: Order Comment: Order Added by Gregory Expert. Performed By: #### 2 101860, 8669780, 7280111, 3360611, 2322249, 39246562 ####[facility] [address] [place] [address] Lymphocytes/100 WBC (Bld) 29.6 % Normal 14.0-50.0 [facility] Comment on above: Order Comment: Order Added by Gregory Expert. Performed By: #### 2 808311, 1003084, 6261842, 2859539, 9406709, 32067547 ####[facility] [address] [place] [address] Lymphocytes/Leukocytes Auto (Bld) [Pure # fraction] 2.2 E9/L Normal 1.0-4.0 [facility] Comment on above: Order Comment: Order Added by Gregory Expert. Performed By: #### 2 466398, 5863419, 6234600, 0111340, 8512291, 95383941 ####[facility] [address] [place] [address] Monocytes/100 WBC (Bld) 9.7 % Normal 4.0-14.0 [facility] Comment on above: Order Comment: Order Added by Discern Expert. Performed By: #### 2 361815, 4298904, 8156454, 7310536, 9916758, 21494047 ####[place] [address] [place] [address] Monocytes/Leukocytes Auto (Bld) [Pure # fraction] 0.7 E9/L Normal 0.2-1.0 [facility] Comment on above: Order Comment: Order Added by Discern Expert. Performed By: #### 2 685958, 5801769, 6929839, 5410717, 2404139, 19059719 ####[place] [address] [place] [address] Neutrophils/100 WBC (Bld) 58.0 % Normal 36.0-75.0 [facility] Comment on above: Order Comment: Order Added by Gregory Expert. Performed By: #### 2 256633, 0858571, 0816423, 5384226, 4565342, 78712815 ####[address] [address] Neutrophils/Leukocytes Auto (Bld) [Pure # fraction] 4.3 E9/L Normal 2.0-7.5 [facility] Comment on above: Order Comment: Order Added by Gregory Expert. Performed By: #### 2 770340, 5180910, 1361351, 5106302, 0773051, 60741052 ####[place] [address] [place] [address] BMPon 04-05-2023 Anion gap [Moles/Vol] 11 mmol/L Normal 6-16 [facility] Comment on above: Performed By: #### 2 101445, 1599205, 3386057, 5073934, 6263549, 03856335 ####[address] [address] BUN/Creat Ratio 15 No Units Normal 10-20 [facility] Comment on above: Performed By: #### 2 815288, 4419786, 1263386, 2464246, 7848656, 79049297 ####[facility] [address] [address] Calcium [Mass/Vol] 8.6 mg/dL Low 8.9-11.1 [facility] Comment on above: Performed By: #### 2 423624, 8513825, 6241837, 3837247, 7678557, 39463992 ####[facility] [address] [place] [address] Chloride [Moles/Vol] 107 mmol/L Normal 101-111 [facility] Comment on above: Performed By: #### 2 508814, 9514023, 7788765, 5769425, 8526219, 75098105 ####[facility] [address] [place] [address] CO2 [Moles/Vol] 24 mmol/L Normal 21-31 [facility] Comment on above: Performed By: #### 2 190539, 0224191, 9295485, 6742693, 4050714, 81041135 ####[facility] [address] [place] [address] Creatinine [Mass/Vol] 0.8 mg/dL Normal 0.5-1.3 [facility] Comment on above: Performed By: #### 2 198184, 3454306, 1347379, 8632938, 8528376, 37768361 ####[facility] [address] [place] [address] Glucose [Mass/Vol] 145 mg/dL Normal 55-199 [facility] Comment on above: Performed By: #### 2 109097, 1364942, 9738768, 5414963, 7199423, 13559399 ####[facility] [address] [facility] [address] Potassium [Moles/Vol] 3.4 mmol/L Low 3.5-5.3 [facility] Comment on above: Performed By: #### 2 016432, 8021840, 3831249, 3474602, 2821384, 88156539 ####[facility] [address] [place] [address] Sodium [Moles/Vol] 139 mmol/L Normal 135-145 [facility] Comment on above: Performed By: #### 2 298633, 2881975, 9425228, 3792004, 4266228, 37200217 ####[facility] [address] [place] [address] Urea nitrogen [Mass/Vol] 12 mg/dL Normal 5-21 [facility] Comment on above: Performed By: #### 2 911529, 0564255, 2993177, 3973052, 6923602, 34864955 ####[address] [address] CBC w/ Auto Diffon 4 Erythrocyte distribution width (RBC) [Ratio] 13.2 % Normal 10.9-14.2 [facility] Comment on above: Performed By: #### 2 659734, 5407254, 0275239, 0627012, 8835113, 66568695 ####[address] [address] Hematocrit (Bld) [Volume fraction] 43.1 % Normal 34.0-46.0 [facility] Comment on above: Performed By: #### 2 086185, 5582552, 3309356, 0267126, 8550572, 99404095 ####[address] [address] Hemoglobin (Bld) [Mass/Vol] 14.5 g/dL Normal 12.0-16.0 [facility] Comment on above: Performed By: #### 2 940994, 6907450, 0774215, 5257480, 6784714, 34465115 ####[address] [address] MCH (RBC) [Entitic mass] 31.8 pg Normal 27.0-34.0 [facility] Comment on above: Performed By: #### 2 533017, 7451447, 0458256, 3723681, 1901588, 86016109 ####[facility] [address] [place] [address] MCHC (RBC) [Mass/Vol] 33.5 g/dL Normal 31.4-36.0 [facility] Comment on above: Performed By: #### 2 486161, 8369851, 0241787, 5898429, 8150711, 93590750 ####[place] [address] MCV (RBC) [Entitic vol] 95.0 fL Normal 80.0-100.0 [facility] Comment on above: Performed By: #### 2 099729, 8689333, 2828512, 3439121, 1190482, 69222303 ####[address] [address] Platelet mean volume (Bld) [Entitic vol] 9.0 fL Normal 6.4-10.8 [facility] Comment on above: Performed By: #### 2 125839, 3871768, 7171184, 8888756, 9316097, 95155729 ####[address] [address] Platelets (Bld) [#/Vol] 268.0 E9/L Normal 150.0-500.0 [facility] Comment on above: Performed By: #### 2 873795, 7741642, 1252121, 6794440, 3070988, 64302404 ####[address] [address] RBC (Bld) [#/Vol] 4.5 E12/L Normal 4.3-5.9 [facility] Comment on above: Performed By: #### 2 794264, 8889870, 8942562, 8795061, 4591930, 35012424 ####[address] [address] WBC corrected for nucl RBC Auto (Bld) [#/Vol] 7.4 E9/L Normal 4.0-11.0 [facility] Comment on above: Performed By: #### 2 517876, 9325249, 6868118, 5596594, 5112226, 97885573 ####[facility] [address] [place] [address] CHEMISTRYOrdered By: SYSTEM SYSTEM on 04-05-2023 Albumin [...] for Treatmenton 03-25 Consent for Treatment [id number]#1.00T IFF Normal [facility] Discharge Instructionson Discharge Instructions [id number]#1.00 TIFF Normal [facility] ED Clinical Summaryon 2023 ED Clinical Summary Normal [facility] ED Note-Physicianon 04-05-19 ED Note-Physician Normal [facility] Comment on above: Result Comment: Elec tronically Signed By: Robert Taylor PA-C\.br\Date and Time Signed: 04/05/23 18:35 EST\.br\Electronically Co-Signed By: Nikhil Tubbs DO\.br\Date and Time Co-Signed: 04/05/23 18:36 EST ED Patient Education Noteon 04-05-2023 ED Patient Education Note Normal [facility] ED Patient Summaryon ED Patient Summary Normal [facility] HEMATOLOGYOrdered By: SYSTEM SYSTEM on 04-05-2023 [...] 10.8 fL [facility] HemeAutoSS Platelets (Bld) [#/Vol] 268.0 E9/L Normal 150.0 - 500.0 E9/L [facility] HemeAutoSS RBC (Bld) [#/Vol] 4.5 E12/L Normal 4.3 - 5.9 E12/L [facility] HemeAutoSS WBC corrected for nucl RBC Auto (Bld) [#/Vol] 7.4 E9/L Normal 4.0 - 11.0 E9/L [facility] HemeAutoSS Hep Func Panelon 04-05-2023 Albumin [Mass/Vol] 4.0 g/dL Normal 3.3-5.0 [facility] Comment on above: Performed By: #### 2 817266, 3867327, 5161726, 2494409, 3670336, 95998858 ####[facility] [address] [facility] [place] [address] Albumin/Globulin [Mass ratio] 1.2 {ratio} Normal 1.1-2.2 [facility] Comment on above: Performed By: #### 2 246841, 7713866, 8554461, 2517954, 5159867, 05343762 ####[facility] [address] [place] [address] Alk Phos 79 Int._Unit/L Normal 21-98 [facility] Comment on above: Performed By: #### 2 011581, 5815457, 3191297, 1173259, 4306801, 16329520 ####[facility] [address] [facility] [place] [address] ALT 140 Int._Unit/L High 6-46 [facility] Comment on above: Performed By: #### 2 717177, 7054437, 2187203, 1348260, 4878076, 85942124 ####[facility] [address] [facility] [place] [address] AST 83 Int._Unit/L High 5-43 [facility] Comment on above: Performed By: #### 2 335623, 4148857, 7789463, 3636310, 1972745, 86508343 ####[facility] [address] [place] [address] Bili Direct 0.2 mg/dL Normal 0.0-0.4 [facility] Comment on above: Performed By: #### 2 333862, 1892088, 2437344, 7339499, 1659560, 09669911 ####[facility] [address] [place] [address] Bili Indirect 0.6 mg/dL Normal 0.1-0.[address] [facility] Comment on above: Performed By: #### 2 237791, 4115483, 8579953, 6835131, 6930808, 63745640 ####[facility] [address] [place] [address] Bili Total 0.8 mg/dL Normal 0.0-1.1 [facility] Comment on above: Performed By: #### 2 559364, 5724552, 5793459, 6680191, 7034961, 24486015 ####[facility] [address] [place] [address] Globulin (S) [Mass/Vol] 3.3 g/dL Normal 1.4-4.0 [facility] Comment on above: Performed By: #### 2 940277, 1735927, 1463196, 7395361, 1844546, 38014468 ####[place] [address] [place] [address] Protein [Mass/Vol] 7.3 g/dL Normal 6.0-7.8 [facility] Comment on above: Performed By: #### 2 545331, 8309347, 6142279, 5649465, 9848672, 17508575 ####[place] [address] [place] [address] Lipase Levelon 04-05-2023 Lipase Lvl 26 unit/L Normal 13-58 [facility] Comment on above: Performed By: #### 2 250726, 3949685, 5042282, 3687768, 2602703, 05493881 ####[place] [address] [place] [address] eGFRon 04-05-2023 GFR/1.73 sq M.predicted among non-blacks MDRD (S/P/Bld) [Vol rate/Area] mL/min/{1.73_m2} Normal >=59 [facility] Comment on above: Order Comment: Order added by Discern Expert. Performed By: #### 2 689015, 3794951, 0593846, 5236293, 8146925, 12142266 ####[facility] [address] [place] [address] Consent for Treatmenton Consent for Treatment [id number]#1.00T IFF Normal [facility] Discharge Instructionson Discharge Instructions [id number]#1.00T IFF Normal [facility] ED Clinical Summaryon 2023 ED Clinical Summary Normal Osbaldo martinez [facility] ED Note-Physicianon 04-02-19 ED Note-Physician Normal [facility] Comment on above: Result Comment: Elec tronically Signed By: Elisa Sánchez DO\.br\Date and Time Signed: 04/02/23 22:34 EST ED Patient Education Noteon 04-02-2023 ED Patient Education Note Normal [facility] ED Patient Summaryon 024 ED Patient Summary Normal [facility] Alpha 1 antitrypsinon 2023 Alpha 1 antitrypsin Nephelometry [Mass/Vol] 155 mg/dL Normal 84-[address] [facility] Comment on above: Performed By: #### 6 771-0 ####JOLENE Cantu ([id number])[facility] ([facility])[id number] [place] [address] Dfxww-9-Aewcppynghham 2023 AFP [Mass/Vol] 6 ng/mL Normal 0-[address] [facility] Comment on above: Order Comment: AFP t esting is performed by chemiluminescent immunoassay using the tripJane. Values obtained with different analyte methods cannot be used interchangeably. This test can be used as an adjunct in the diagnosis and monitoring of AFP-producing tumors, including non-seminomatous germ cell tumors and hepatocellular carcinomas. Performed By: #### 1 834-1 ####JOLENE Cantu ([id number])[facility] ([facility])[address] [place] [address] Bilirubin.glucuronidated+Kenan irubin.albumin boundon 04-01-2023 Bilirubin.direct [Mass/Vol] 0.1 mg/dL Normal 0.0-0.[address] [facility] Comment on above: Performed By: #### 1 968-7 ####SHWETA ROCHA ([id number])[facility] ([facility])[address] [place] [address] CBC W Auto Differential pane l (Bld)on 04-01-2023 Basophils (Bld) [#/Vol] 0.01 x10*3/uL Normal 0.00-0.[address] [facility] Comment on above: Performed By: #### 5 7021-8 ####SHWETA ROCHA ([id number])[facility] ([facility])[address] [place] [address] Basophils/100 WBC (Bld) 0.2 % Normal 0.0-2.[address] [facility] Comment on above: Performed By: #### 5 7021-8 ####SHWETA ROCHA ([id number])[facility] ([facility])[address] [place] [address] Eosinophils (Bld) [#/Vol] 0.16 x10*3/uL Normal 0.00-0.[address] [facility] Comment on above: Performed By: #### 5 7021-8 ####SHWETA ROCHA ([id number])[facility] ([facility])[address] [place] [address] Eosinophils/100 WBC (Bld) 2.6 % Normal 0.0-6.[address] [facility] Comment on above: Performed By: #### 5 7021-8 ####SHWETA ROCHA ([id number])[facility] ([facility])[address] [place] [address] Erythrocyte distribution width (RBC) [Ratio] 12.2 % Normal 11.5-14.[address] [facility] Comment on above: Performed By: #### 5 7021-8 ####SHWETA ROCHA ([id number])[facility] ([facility])[address] [place] [address] Hematocrit (Bld) [Volume fraction] 47.8 % High 36.0-46.[address] [facility] Comment on above: Performed By: #### 5 7021-8 ####SHWETA ROCHA ([id number])[facility] ([facility])[address] [place] [address] Hemoglobin (Bld) [Mass/Vol] 16.0 g/dL Normal 12.0-16.[address] [facility] Comment on above: Performed By: #### 5 7021-8 ####SHWETA ROCHA ([id number])[facility] ([facility])[address] [place] [address] Immature granulocytes (Bld) [#/Vol] 0.02 x10*3/uL Normal 0.00-0.[address] [facility] Comment on above: Performed By: #### 5 7021-8 ####SHWETA ROCHA ([id number])[facility] ([facility])[address] [place] [address] Immature granulocytes/100 WBC (Bld) 0.3 % Normal 0.0-0.[address] [facility] Comment on above: Result Comment: Aspen ture Granulocyte Count (IG) includes promyelocytes, myelocytes and metamyelocytes but does not include bands. Percent differential counts (%) should be interpreted in the context of the absolute cell counts (cells/UL). Performed By: #### 5 7021-8 ####SHWETA ROCHA ([id number])[facility] ([facility])[address] [place] [address] Lymphocytes (Bld) [#/Vol] 2.03 x10*3/uL Normal 1.20-4.[address] [facility] Comment on above: Performed By: #### 5 7021-8 ####SHWETA ROCHA ([id number])[facility] ([facility] [place] [address] 68387 Lymphocytes/100 WBC (Bld) 32.7 % Normal 13.0-44.[address] [facility] Comment on above: Performed By: #### 5 7021-8 ####SHWETA ROCHA ([id number])[facility] ([facility])[address] [place] [address] MCH (RBC) [Entitic mass] 32.3 pg Normal 26.0-34.[address] [facility] Comment on above: Performed By: #### 5 7021-8 ####SHWETA ROCHA ([id number])[facility] ([facility])[address] [place] [address] MCHC (RBC) [Mass/Vol] 33.5 g/dL Normal 32.0-36.0 [facility] Comment on above: Performed By: #### 5 7021-8 ####SHWETA ROCHA ([id number])[facility] ([facility])[address] [place] [address]122 MCV (RBC) [Entitic vol] 96 fL Normal 80-[address] [facility] Comment on above: Performed By: #### 5 7021-8 ####SHWETA ROCHA (47329)[facility] ([facility])[address] [place] [address] 15776 Monocytes (Bld) [#/Vol] 0.72 x10*3/uL Normal 0.10-1.[address] [facility] Comment on above: Performed By: #### 5 7021-8 ####SHWETA ROCHA (63060)[facility] ([facility])[address] [place] [address] Monocytes/100 WBC (Bld) 11.6 % Normal 2.0-10.[address] [facility] Comment on above: Performed By: #### 5 7021-8 ####SHWETA ROCHA ([id number])[facility] ([facility])[address] [place] [address] 20140 Neutrophils (Bld) [#/Vol] 3.26 x10*3/uL Normal 1.20-7.[address] [facility] Comment on above: Result Comment: Perc ent differential counts (%) should be interpreted in the context of the absolute cell counts (cells/uL). Performed By: #### 5 7021-8 ####SHWETA ROCHA ([id number])[facility] ([facility])[address] [place] [address] 94889 Neutrophils/100 WBC (Bld) 52.6 % Normal 40.0-80.[address] [facility] Comment on above: Performed By: #### 5 7021-8 ####SHWETA ROCHA (48064)[facility] ([facility])[address] [place] [address] 41820 Nucleated RBC/100 WBC (Bld) [Ratio] 0.0 /100 WBCs Normal 0.0-0.[address] [facility] Comment on above: Performed By: #### 5 7021-8 ####SHWETA ROCHA (55405)[facility] ([facility])[address] [place] [address] 96285 Platelets (Bld) [#/Vol] 403 x10*3/uL Normal 150-[address] [facility] Comment on above: Performed By: #### 5 7021-8 ####SHWETA ROCHA ([id number])[facility] ([facility])[address] [place] [address] 30529 RBC (Bld) [#/Vol] 4.96 x10*6/uL Normal 4.00-5.20 [facility] Comment on above: Performed By: #### 5 7021-8 ####SHWETA ROCHA ([id number])[facility] ([facility])[address] [place] [address] 55235 WBC (Bld) [#/Vol] 6.2 x10*3/uL Normal 4.4-11.3 [facility] Comment on above: Performed By: #### 5 7021-8 ####SHWETA ROCHA ([id number])[facility] ([facility])[address] [place] [address] 56196 Ceruloplasminon 04-01-2023 Ceruloplasmin [Mass/Vol] 30.7 mg/dL Normal 20.0-60.[address] [facility] Comment on above: Performed By: #### 2 064-4 ####JOLENE Cantu ([id number])[facility] ([facility])[address] [place] [address] Coagulation tissue factor in ducedon 04-01-2023 PT Coag (PPP) [Time] 10.1 s Normal 9.8-12.8 [facility] Comment on above: Performed By: #### 5 902-2 ####JOLENE Cantu ([id number])[facility] ([facility])[address] [place] [address] Comprehensive metabolic 2000 panelon 04-01-2023 Albumin BCP dye [Mass/Vol] 4.3 g/dL Normal 3.4-5.[address] [facility] Comment on above: Performed By: #### 2 4323-8 ####SHWETA ROCHA ([id number])[facility] ([facility])[address] [place] [address] 21606 ALP [Catalytic activity/Vol] 97 U/L Normal 33-[address] [facility] Comment on above: Performed By: #### 2 4323-8 ####SHWETA ROCHA ([id number])[facility] ([facility])[address] [place] [address] 63544 ALT With P-5'-P [Catalytic activity/Vol] 144 U/L High 7-[address] [facility] Comment on above: Result Comment: Katia ents treated with Sulfasalazine may generate falsely decreased results for ALT. Performed By: #### 2 4323-8 ####SHWETA ROCHA ([id number])[facility] ([facility])[address] [place] [address] Anion gap [Moles/Vol] 14 mmol/L Normal 10-20 [facility] Comment on above: Performed By: #### 2 4323-8 ####SHWETA ROCHA ([id number])[facility] ([facility])[address] [place] [address] 52564 AST With P-5'-P [Catalytic activity/Vol] 120 U/L High 9-[address] [facility] Comment on above: Performed By: #### 2 4323-8 ####SHWETA ROCHA ([id number])[facility] ([facility])[address] [place] [address] Bilirubin [Mass/Vol] 0.6 mg/dL Normal 0.0-1.2 [facility] Comment on above: Performed By: #### 2 4323-8 ####SHWETA ROCHA (60322)[facility] ([facility])[address] [place] [address] Calcium [Mass/Vol] 9.4 mg/dL Normal 8.6-10.3 [facility] Comment on above: Performed By: #### 2 4323-8 ####SHWETA ROCHA (88872)[facility] ([facility])[address] [place] [address] Chloride [Moles/Vol] 101 mmol/L Normal 98-107 [facility] Comment on above: Performed By: #### 2 4323-8 ####SHWETA ROCHA (73357)[facility] ([facility])[address] [place] [address] CO2 [Moles/Vol] 29 mmol/L Normal 21-32 [facility] Comment on above: Performed By: #### 2 4323-8 ####SHWETA ROCHA (02472)[facility] ([facility])[address] [place] [address] Creatinine [Mass/Vol] 0.74 mg/dL Normal 0.50-1.05 [facility] Comment on above: Performed By: #### 2 4323-8 ####SHWETA ROCHA (97094)[facility] ([facility])[address] [place] [address] GFR/1.73 sq M.predicted MDRD (S/P/Bld) [Vol rate/Area] mL/min/{1.73_m2} Normal >[address] [facility] Comment on above: Result Comment: Calc ulations of estimated GFR are performed using the 2020 CKD-EPI Study Refit equation without the race variable for the IDMS-Traceable creatinine methods.https://jasn.asnjournals.org/content//A SN.2120598668 Performed By: #### 2 4323-8 ####BEATRIZIBELIGANESH ADAMA KEY ([id number])[facility] ([facility])[address] [place] [address] Glucose [Mass/Vol] 81 mg/dL Normal 74-99 [facility] Comment on above: Performed By: #### 2 4323-8 ####BEATRIZIBELIGANESH BARNETTADAMA KEY ([id number])[facility] ([facility])[address] [place] [address] Potassium [Moles/Vol] 5.5 mmol/L High 3.5-5.3 [facility] Comment on above: Performed By: #### 2 4323-8 ####ANAIBELIGANESH ADAMA KEY ([id number])[facility] ([facility])[address] [place] [address] Protein [Mass/Vol] 7.6 g/dL Normal 6.4-8.2 [facility] Comment on above: Performed By: #### 2 4323-8 ####ANAIBELIGANESH ADAMA KEY ([id number])[facility] ([facility])[address] [place] [address] Sodium [Moles/Vol] 138 mmol/L Normal 136-145 [facility] Comment on above: Performed By: #### 2 4323-8 ####ANAIBELIGANESH ADAMA KEY ([id number])[facility] ([facility])[address] [place] [address] Urea nitrogen [Mass/Vol] 11 mg/dL Normal 6-[address] [facility] Comment on above: Performed By: #### 2 4323-8 ####ANAIBELIGANESH ADAMA KEY ([id number])[facility] ([facility])[address] [place] [address] Ferritinon 04-01-2023 Ferritin [Mass/Vol] 77 ng/mL Normal 8-150 [facility] Comment on above: Performed By: #### 2 276-4 ####JOLENE Cantu (53676)[facility] ([facility])[address] [place] [address] HCV RNA panel LINDSEY+probeon HCV PCR QUANT [id number] IU/mL High Not detected [facility] Comment on above: Order Comment: Repor table Range: 15-100,000,000 IU/mL.The javier HCV is an in vitro nucleic acid amplification test for both the detection and quantitation of hepatitis C virus (HCV) RNA, in human EDTA plasma or serum, of HCV antibody positive or HCV-infected individuals on the javier Validus0/8800 Systems. Dual probes are used to detect [...] as <15 Detected or >100,000,000 Detected .The javier??? HCV is intended for use as [...] the Molecular Diagnostic Laboratory, Department of Pathology, [facility]. Performed By: #### 5 0023-1 ####JOLENE Cantu ([id number])[facility] ([facility])[address] [place] [address] HCV PCR W/GENOTYPE REFLEX ORDERED Aliquot sent to Genetics Lab for genotyping Normal [facility] Comment on above: Order Comment: Repor table Range: 15-100,000,000 IU/mL.The javier HCV is an in vitro nucleic acid amplification test for both the detection and quantitation of hepatitis C virus (HCV) RNA, in human EDTA plasma or serum, of HCV antibody positive or HCV-infected individuals on the javier Validus0/8800 Systems. Dual probes are used to detect [...] as <15 Detected or >100,000,000 Detected .The javier??? HCV is intended for use as [...] the Molecular Diagnostic Laboratory, Department of Pathology, [facility]. Performed By: #### 5 0023-1 ####JOLENE Cantu ([id number])[facility] ([facility])[address] [place] [address] HCV RNA RESULT Detected Abnormal Not detected [facility] Comment on above: Order Comment: Repor table Range: 15-100,000,000 IU/mL.The javier HCV is an in vitro nucleic acid amplification test for both the detection and quantitation of hepatitis C virus (HCV) RNA, in human EDTA plasma or serum, of HCV antibody positive or HCV-infected individuals on the javier Validus0/8800 Systems. Dual probes are used to detect [...] as <15 Detected or >100,000,000 Detected .The javier??? HCV is intended for use as [...] the Molecular Diagnostic Laboratory, Department of Pathology, [facility]. Performed By: #### 5 0023-1 ####JOLENE Cantu ([id number])[facility] ([facility])[address] [place] [address]86 HCV RNA, PCR LOG 7.24 Log IU/mL [facility] Comment on above: Order Comment: Repor [...] as <15 Detected or >100,000,000 Detected .The javier??? HCV is intended for use as [...] the Molecular Diagnostic Laboratory, Department of Pathology, [facility]. Performed By: #### 5 0023-1 ####JOLENE Cantu ([id number])[facility] ([facility])[address] [place] [address] HCV genotype Sequencing Nomo n 04-01-2023 ELECTRONICALLY SIGNED BY Stephen Nguyen MD PhD [facility] Comment on above: Performed By: #### 9 2731-9 ####STEPHEN NGUYEN (79086) [facility] ([facility])[address] [place] [address] HEPATITIS C INTERPRETATION INTERPRETATION Normal [facility] Comment on above: Performed By: #### 9 2731-9 ####STEPHEN NGUYEN (83167) [facility] ([facility])[address] [place] [address] HIV 1+2 Ab+HIV1 p24 Agon HIV 1+2 Ab+HIV1 p24 Ag IA Ql Non-Reactive Normal Nonreactive [facility] Comment on above: Order Comment: HIV A g/Ab screen is performed using the Siemens AlienVault HIV Ag/Ab Combo assay which detects the presence of HIV p24 antigen as well as antibodies to HIV-1 (Group M and O) and HIV-2.No laboratory evidence of HIV infection. If acute HIV infection is suspected, consider testing for HIV RNA by PCR (viral load). Performed By: #### 5 6888-1 ####JOLENE Cantu (75891)[facility] ([facility])[address] [place], [place] [address] Hepatitis A virus Abon 04-01 HAV Ab IA Ql (S) Reactive Abnormal Nonreactive [facility] Comment on above: Order Comment: Bioti n interference may cause falsely elevated results. Patients taking a Biotin dose of up to 5 mg/day should refrain from taking Biotin for 24 hours before sample collection. Providers may contact their local laboratory for further information. Performed By: #### 1 3951-9 ####JOLENE Cantu (45753)[facility] ([facility])[address] [place] [address] Hepatitis B virus core Abon 04-01-2023 HBV core Ab Ql (S) Non-Reactive Normal Nonreactive [facility] Comment on above: Order Comment: Resul ts from patients taking biotin supplements or receiving high-dose biotin therapy should be interpreted with caution due to possible interference with this test. Providers may contact their local laboratory for further information. Performed By: #### 1 6933-4 ####JOLENE Cantu (85689)[facility] ([facility])[address] [place] [address] Hepatitis B virus surface Ab on 04-01-2023 HBV surface Ab Qn (S) <3.1 Normal <10.0 [facility] Comment on above: Result Comment: Inte rpretive Criteria: <10 mIU/mL Nonreactive >=10 mIU/mL ReactiveBiotin interference may cause falsely decreased results. Patients taking a Biotin dose of up to 5 mg/day should refrain from taking Biotin for 24 hours before sample collection. Providers may contact their local laboratory for further information. Performed By: #### 1 6935-9 ####JOLENE Cantu (68340)[facility] ([facility])[address] [place], [place] [address] Hepatitis B virus surface Ag on 04-01-2023 HBV surface Ag IA Ql Non-Reactive Normal Nonreactive [facility] Comment on above: Result Comment: Biot in interference may cause falsely decreased results. Patients taking a Biotin dose of up to 5 mg/day should refrain from taking Biotin for 24 hours before sample collection. Providers may contact their local laboratory forfurther information. Performed By: #### 5 196-1 ####JOLENE Cantu (82662)[facility] ([facility])[address] [place], [place] [address] Hepatitis C virus genotypeon 04-01-2023 HCV genotype Sequencing Nom Genotype 1a Normal Genotypes: 1, 1a, 1b, 1c, 1d, 1e, 1g, 1h, 1i, 1j, 1k, 1l, 1m, 1n, 2, 2a, 2b, 3, 3a, 3b, 3d, 3e, 3g, 3h, 3i, 3k, 4, 4a, 4b, 5, 5a, 6, 6a, 6b [facility] Comment on above: Performed By: #### 9 2731-9 ####STEPHEN NGUYNE (30368) [facility] ([facility])[address] [place] [address] Iron and Iron binding capaci ty panelon 04-01-2023 Iron [Mass/Vol] 119 ug/dL Normal 35-150 [facility] Comment on above: Performed By: #### 5 0190-8 ####SHWETA ROCHA ([id number])[facility] ([facility])[address] [place] [address] Iron binding capacity [Mass/Vol] 465 ug/dL High 240-[address] [facility] Comment on above: Performed By: #### 5 0190-8 ####SHWETA ROCHA (16822)[facility] ([facility])[address] [place] [address] Iron binding capacity.unsaturated [Mass/Vol] 346 ug/dL Normal 110-[address] [facility] Comment on above: Performed By: #### 5 0190-8 ####SHWETA ROCHA ([id number])[facility] ([facility])[address] [place] [address] 87189 Iron saturation [Mass fraction] 26 % Normal 25-[address] [facility] Comment on above: Performed By: #### 5 0190-8 ####SHWETA ROCHA ([id number])[facility] ([facility])[address] [place] [address] 48662 Mitochondria Abon 04-01-2023 Mitochondria Ab IF Ql (S) Negative Normal Negative [facility] Comment on above: Performed By: #### 1 7284-1 ####JOLENE Cantu (66532)[facility] ([facility])[address] [place] [address] 74129 Nuclear Abon 04-01-2023 Nuclear Ab Hep2 substrate Ql (S) Negative Normal Negative [facility] Comment on above: Result Comment: The Antinuclear Antibody (BEATRIZ) test was performed usingindirect immunofluorescence assay with HEp-2 cells slide. Performed By: #### 5 9069-5 ####JOLENE Cantu (04230)[facility] ([facility])[address] [place] [address] 31583 PHOSPHATIDYLETHANOL (PETH), WHOLE BLOOD, QUANTITATIVEon 04-01-2023 Laboratory report See Note Normal [facility] Comment on above: Result Comment: Auth orized individuals can access the ARUPEnhanced Report using the following link:[email or web address] Performed By: #### P ETHA ####[facility]) ([id number])[address] [place] [address] PETH INTERPRETATION See Note Normal [facility] Comment on above: Result Comment: Phos phatidylethanol (PEth) is a group of phospholipids formed inthe presence of ethanol, phospholipase D and phosphatidylcholine.PEth is known to be a direct alcohol biomarker. The predominantPEth homologues are PEth 16:0/18:1 (POPEth) and PEth 16:0/18:2(PLPEth), which account for 37-46% and 26-28% of the total PEthhomologues, respectively. PEth is incorporated into thephospholipid membrane of red blood cells and has a generalhalf-life of 4-10 days and a window of detection of 2-4 weeks.However, the window of detection is longer in individuals whochronically or excessively consume alcohol. The limit ofquantification is 10 ng/mL. Serial monitoring of PEth may behelpful in monitoring alcohol abstinence over time. PEth resultsshould be interpreted in the context of the patient's clinical andbehavioral history.Patients with advanced liver disease may have falsely elevatedPEth concentrations (Shweta MATTHEW et al 2018, Alcoholism Clinical &Experimental Research).This test was developed and its performance characteristicsdetermined by [facility]. It has not been cleared orapproved by the U.S. Food and Drug Administration. This test wasperformed in a CLIA-certified laboratory and is intended forclinical purposes.Performed By: [facility] [place], [place] [address]Ufjwleqclk Director: Miki Neal MD, PhDCLIA Number: [id number] Performed By: #### P ETHA ####[facility] [facility]) ([id number])[address] [place] [address] Phosphatidylethanol 16:0-18:1 <10 [facility] Comment on above: Result Comment: PEth 16:0/18:1 (POPEth)Less than 10 ng/mL............Not detectedLess than 20 ng/mL............Abstinence or light nnrscjhkdiidkatveb78 - 200 ng/mL................Moderate alcohol consumptionGreater than 200 ng/mL........Heavy alcohol consumption or chronicalcohol use(Reference: Enrike Mirza and Noé Dan 2018 J. Forensic Sci) Performed By: #### P AGA ####[facility] [employer]) ([id number])[address] [place] [address] Phosphatidylethanol 16:0-18:2 <[address] [facility] Comment on above: Result Comment: Refe rence ranges are not well established. Performed By: #### P ETHA ####[facility] [employer]) ([id number])[address] [place] [address] PT Coag (PPP) [Time]on 04-01 INR Coag (PPP) [Relative time] 0.9 Normal 0.9-1.[address] [facility] Comment on above: Performed By: #### 5 902-2 ####JOLENE Cantu ([id number])[facility] ([facility])[address] [place] [address] Smooth muscle Abon 4 Smooth muscle Ab IF Ql (S) Negative Normal Negative [facility] Comment on above: Performed By: #### 2 6971-2 ####JOLENE Cantu (30376)[facility] ([facility])[address] [place] [address] Consent for Treatmenton Consent for Treatment [id number]#1.00T IFF Normal [facility] Discharge Instructionson Discharge Instructions [id number]#1.00 TIFF Normal [facility] ED Clinical Summaryon 2023 ED Clinical Summary Normal [facility] ED Note-Physicianon 03-26-19 ED Note-Physician Normal [facility] Comment on above: Result Comment: Elec tronically Signed By: Jorge Mcintosh DO\.br\Date and Time Signed: 03/26/23 12:29 EST ED Patient Education Noteon 03-26-2023 ED Patient Education Note Normal [facility] ED Patient Summaryon 024 ED Patient Summary Normal [facility] Consent for Treatmenton 02-24 Consent for Treatment [id number]#1.00T IFF Normal [facility] Discharge Instructionson Discharge Instructions [id number]#1.00 TIFF Normal [facility] ED Clinical Summaryon 2022 ED Clinical Summary Normal [facility] ED Note-Physicianon 03-23-20 ED Note-Physician Normal [facility] Comment on above: Result Comment: Elec tronically Signed By: Landon Tidwell PA-C\.br\Date and Time Signed: 03/23/23 13:46 EST\.br\Electronically Co-Signed By: Nikhil Tubbs DO.br\Date and Time Co-Signed: 03/23/23 15:51 EST ED Patient Education Noteon 03-23-2023 ED Patient Education Note Normal [facility] ED Patient Summaryon 023 ED Patient Summary Normal [facility] Consent for Treatmenton 02-23 Consent for Treatment [id number] IFF Normal [facility] Discharge Instructionson Discharge Instructions [id number]#1.00 TIFF Normal [facility] ED Clinical Summaryon 2022 ED Clinical Summary Normal [facility] ED Note-Physicianon 03-20-20 ED Note-Physician [facility] Comment on above: Result Comment: Elec tronically Signed By: Landon Tidwell PA-C\.br\Date and Time Signed: 03/20/23 13:40 EST\.br\Electronically Co-Signed By: Elisa Sánchez DO.br\Date and Time Co-Signed: 03/20/23 15:13 EST ED Patient Education Noteon 03-20-2023 ED Patient Education Note Normal [facility] ED Patient Summaryon 023 ED Patient Summary Normal [facility] Auto Diffon 03-11-2023 Basophils/100 WBC (Bld) 0.3 % Normal 0.0-2.0 [facility] Comment on above: Order Comment: Order Added by Discern Expert. Performed By: #### 2 710029, 6529050, 3009466, [id number], 3895343, 8391897 ####[place] [address] [place] [address] Basophils/Leukocytes Auto (Bld) [Pure # fraction] 0.0 E9/L Normal 0.0-0.2 [facility] Comment on above: Order Comment: Order Added by Discern Expert. Performed By: #### 2 961299, 8809323, 8667756, [id number], 2291189, 1348569 ####[place] [address] [place] [address] Eosinophils/100 WBC (Bld) 5.6 % Normal 0.0-8.0 [facility] Comment on above: Order Comment: Order Added by Discern Expert. Performed By: #### 2 808093, 0694780, 9577215, 71400288, 8951134, 7584120 ####[facility] [address] [place] [address] Eosinophils/Leukocytes Auto (Bld) [Pure # fraction] 0.3 E9/L Normal 0.0-0.5 [facility] Comment on above: Order Comment: Order Added by Discern Expert. Performed By: #### 2 051822, 8083645, 4147390, 74037438, 5185525, 8563034 ####[place] [address] [place] [address] Lymphocytes/100 WBC (Bld) 28.4 % Normal 14.0-50.0 [facility] Comment on above: Order Comment: Order Added by Discern Expert. Performed By: #### 2 882291, 0746404, 8624166, 51930915, 3954453, 0957056 ####[address] [address] Lymphocytes/Leukocytes Auto (Bld) [Pure # fraction] 1.8 E9/L Normal 1.0-4.0 [facility] Comment on above: Order Comment: Order Added by Discern Expert. Performed By: #### 2 029524, 7252043, 5956607, 74476103, 0886449, 2120568 ####[address] [address] Monocytes/100 WBC (Bld) 9.4 % Normal 4.0-14.0 [facility] Comment on above: Order Comment: Order Added by Discern Expert. Performed By: #### 2 288172, 1565909, 5664347, 96602352, 3278986, 5164840 ####[address] [address] Monocytes/Leukocytes Auto (Bld) [Pure # fraction] 0.6 E9/L Normal 0.2-1.0 [facility] Comment on above: Order Comment: Order Added by Discern Expert. Performed By: #### 2 190108, 7699859, 4768302, 34662821, 0745679, 0692338 ####[address] [address] Neutrophils/100 WBC (Bld) 56.3 % Normal 36.0-75.0 [facility] Comment on above: Order Comment: Order Added by Discern Expert. Performed By: #### 2 683837, 5503009, 9406670, 06100122, 5856460, 1333355 ####[address] [address] Neutrophils/Leukocytes Auto (Bld) [Pure # fraction] 3.5 E9/L Normal 2.0-7.5 [facility] Comment on above: Order Comment: Order Added by Discern Expert. Performed By: #### 2 841465, 5407993, 3222315, 02493496, 0666052, 9331264 ####[facility] [address] [place] [address] BMPon 03-11-2023 Anion gap [Moles/Vol] 9 mmol/L Normal 6-16 [facility] Comment on above: Performed By: #### 2 884491, 0000077, 9547139, 33722529, 8657380, 7707963 ####[facility] [address] [facility] [place] [address] BUN/Creat Ratio 13 No Units Normal 10-20 [facility] Comment on above: Performed By: #### 2 261529, 2005453, 0781921, 08826013, 6835775, 8541754 ####[facility] [address] [place] [address] Calcium [Mass/Vol] 8.5 mg/dL Low 8.9-11.1 [facility] Comment on above: Performed By: #### 2 112194, 0108588, 9604076, 89879377, 3633367, 3774879 ####[facility] [address] [address] Chloride [Moles/Vol] 105 mmol/L Normal 101-111 [facility] Comment on above: Performed By: #### 2 121064, 9430829, 8632180, 37327017, 6487032, 3117883 ####[facility] [address] [address] CO2 [Moles/Vol] 27 mmol/L Normal 21-31 [facility] Comment on above: Performed By: #### 2 066272, 9498357, 0606224, 92379757, 2283389, 9147169 ####[facility] [address] [place] [address] Creatinine [Mass/Vol] 0.7 mg/dL Normal 0.5-1.3 [facility] Comment on above: Performed By: #### 2 417400, 0810237, 1194610, 08342932, 2128536, 7539710 ####[facility] [address] [place] [address] Glucose [Mass/Vol] 104 mg/dL Normal 55-199 [facility] Comment on above: Performed By: #### 2 914671, 2703980, 0466645, 45329179, 8355578, 0255089 ####[facility] [address] [place] [address] Potassium [Moles/Vol] 4.0 mmol/L Normal 3.5-5.3 [facility] Comment on above: Performed By: #### 2 893292, 4598782, 8436656, 92803068, 8891388, 6929256 ####[facility] [address] [place] [address] Sodium [Moles/Vol] 137 mmol/L Normal 135-145 [facility] Comment on above: Performed By: #### 2 387938, 1269104, 9341807, 63060412, 5448900, 6339034 ####[facility] [address] [place] [address] Urea nitrogen [Mass/Vol] 9 mg/dL Normal 5-21 [facility] Comment on above: Performed By: #### 2 350609, 2063882, 3621473, 61378271, 7945249, 2238951 ####[facility] [address] [place] [address] CBC w/ Auto Diffon 3 Erythrocyte distribution width (RBC) [Ratio] 13.1 % Normal 10.9-14.2 [facility] Comment on above: Performed By: #### 2 649260, 4236127, 7618566, 54579338, 1816539, 0414781 ####[facility] [address] [place] [address] Hematocrit (Bld) [Volume fraction] 46.1 % High 34.0-46.0 [facility] Comment on above: Performed By: #### 2 810384, 7964116, 9502378, 35429221, 4503233, 0423403 ####[address] [address] Hemoglobin (Bld) [Mass/Vol] 15.4 g/dL Normal 12.0-16.0 [facility] Comment on above: Performed By: #### 2 219512, 3394234, 8797362, 55525960, 5272823, 8987839 ####[address] [address] MCH (RBC) [Entitic mass] 32.0 pg Normal 27.0-34.0 [facility] Comment on above: Performed By: #### 2 002235, 0173599, 4872210, 85903365, 2324407, 8889526 ####[place] [address] MCHC (RBC) [Mass/Vol] 33.5 g/dL Normal 31.4-36.0 [facility] Comment on above: Performed By: #### 2 592219, 5586763, 6768506, 55597867, 6055537, 4643939 ####[address] [address] MCV (RBC) [Entitic vol] 95.7 fL Normal 80.0-100.0 [facility] Comment on above: Performed By: #### 2 482417, 6669510, 9020712, 50511649, 7468280, 2220715 ####[address] [address] Platelet mean volume (Bld) [Entitic vol] 9.0 fL Normal 6.4-10.8 [facility] Comment on above: Performed By: #### 2 895739, 8538040, 2821995, 63814743, 6327486, 8603830 ####[address] [place] [address] Platelets (Bld) [#/Vol] 248.0 E9/L Normal 150.0-500.0 [facility] Comment on above: Performed By: #### 2 560953, 2738347, 0812040, 91565564, 2837232, 1439776 ####[facility] [address] [place] [address] RBC (Bld) [#/Vol] 4.8 E12/L Normal 4.3-5.9 [facility] Comment on above: Performed By: #### 2 228142, 4303792, 4372483, 62537536, 2438961, 4852055 ####[facility] [address] [place] [address] WBC corrected for nucl RBC Auto (Bld) [#/Vol] 6.2 E9/L Normal 4.0-11.0 [facility] Comment on above: Performed By: #### 2 306047, 5053862, 1441563, 27019389, 0979897, 2230275 ####[facility] [address] [place] [address] CHEMISTRYOrdered By: SYSTEM SYSTEM on 03-11-2023 Albumin [...] for Treatmenton 02-22 Consent for Treatment [id number] IFF Normal [facility] Discharge Instructionson Discharge Instructions [id number] TIFF Normal [facility] ED Clinical Summaryon 2022 ED Clinical Summary Normal [facility] ED Note-Physicianon 03-11-20 ED Note-Physician Normal [facility] Comment on above: Result Comment: Elec tronically Signed By: Jorge Mcintosh DO\.br\Date and Time Signed: 03/11/23 10:39 EST ED Patient Education Noteon 03-11-2023 ED Patient Education Note Normal [facility] ED Patient Summaryon 023 ED Patient Summary Normal [facility] HEMATOLOGYOrdered By: SYSTEM SYSTEM on 03-11-2023 [...] 33.5 g/dL Normal 31.4 - 36.0 gm/dL [facility] HemeAutoSS MCV (RBC) [Entitic vol] 95.7 fL Normal 80.0 - 100.0 fL [facility] HemeAutoSS Platelet mean volume (Bld) [Entitic vol] 9.0 fL Normal 6.4 - 10.8 fL [facility] HemeAutoSS Platelets (Bld) [#/Vol] 248.0 E9/L Normal 150.0 - 500.0 E9/L [facility] HemeAutoSS RBC (Bld) [#/Vol] 4.8 E12/L Normal 4.3 - 5.9 E12/L [facility] HemeAutoSS WBC corrected for nucl RBC Auto (Bld) [#/Vol] 6.2 E9/L Normal 4.0 - 11.0 E9/L [facility] HemeAutoSS Hep Func Panelon 03-11-2023 Albumin [Mass/Vol] 4.1 g/dL Normal 3.3-5.0 [facility] Comment on above: Performed By: #### 2 627224, 4861661, 4762799, 84444560, 5458374, 6409129 ####[facility] [address] [place] [address] Albumin/Globulin [Mass ratio] 1.4 {ratio} Normal 1.1-2.2 [facility] Comment on above: Performed By: #### 2 471580, 2134292, 0828278, 43622448, 5175978, 6099878 ####[facility] [address] [place] [address] Alk Phos 68 Int._Unit/L Normal 21-98 [facility] Comment on above: Performed By: #### 2 984487, 3196301, 9338509, 12864019, 0234391, 2635461 ####[facility] [address] [place] [address] ALT 66 Int._Unit/L High 6-46 [facility] Comment on above: Performed By: #### 2 496169, 5061884, 8429831, 85818059, 5483383, 9448527 ####[facility] [address] [place] [address] AST 51 Int._Unit/L High 5-43 [facility] Comment on above: Performed By: #### 2 002431, 5173422, 1215567, 09931992, 4667186, 9098015 ####[facility] [address] [place] [address] Bili Direct 0.2 mg/dL Normal 0.1-0.4 [facility] Comment on above: Performed By: #### 2 014625, 3082589, 9016381, 18072713, 9865536, 1964786 ####[facility] [address] [place] [address] Bili Indirect 0.4 mg/dL Normal 0.1-0.[address] [facility] Comment on above: Performed By: #### 2 416210, 0390331, 1376265, 22697649, 4301801, 3433410 ####[facility] [address] [place] [address] Bili Total 0.6 mg/dL Normal 0.0-1.1 [facility] Comment on above: Performed By: #### 2 270169, 8873949, 6883372, 77865637, 9800895, 3115046 ####[facility] [address] [place] [address] Globulin (S) [Mass/Vol] 3.0 g/dL Normal 1.4-4.0 [facility] Comment on above: Performed By: #### 2 886457, 8100727, 5797847, 93667168, 0131662, 8982808 ####[facility] [address] [place] [address] Protein [Mass/Vol] 7.1 g/dL Normal 6.0-7.8 [facility] Comment on above: Performed By: #### 2 240065, 6897806, 3703848, 91984400, 2393382, 2328255 ####[facility] [address] [place] [address] Lipase Levelon 03-11-2023 Lipase Lvl 15 unit/L Normal 13-58 [facility] Comment on above: Performed By: #### 2 394788, 9548658, 0426823, 54585830, 5099860, 1983422 ####[facility] [address] [place] [address] MICRO OTHER TESTSOrdered By: Cheyanne Rosas on 03-11-2023 Rapid COV Int NEG Ctl Pass (03/11/23 9:34 AM) Normal [facility] Man Sero Rapid COV Int POS Ctl Pass (03/11/23 9:34 AM) Normal [facility] Sero SARS-CoV+SARS-CoV-2 (COVID-19) Ag IA.rapid Ql (Resp) Not Detected 1 (03/11/23 9:34 AM) Normal Not Detected [facility] Man Sero Comment on above: Interpretive Data: T ned [employer] System for Rapid Detection of SARS-CoV-2 is [...] COV Int NEG Ctl Pass Normal Fis [facility] Comment on above: Performed By: #### 2 [id number] ####[facility] [address] [place] [address] Rapid COV Int POS Ctl Pass Normal Fis [facility] Comment on above: Performed By: #### 2 [id number] ####[place] [address] [place] [address] SARS-CoV+SARS-CoV-2 (COVID-19) Ag IA.rapid Ql (Resp) Not detected Normal Not Detected [facility] Comment on above: Result Comment: The [employer]? System for Rapid Detection of SARS-CoV-2 is [...] or revoked sooner. Performed By: #### 2 [id number] ####[facility] [address] [place] [address] eGFRon 03-11-2023 GFR/1.73 sq M.predicted among non-blacks MDRD (S/P/Bld) [Vol rate/Area] mL/min/{1.73_m2} Normal >=59 [facility] Comment on above: Order Comment: Order added by Discern Expert. Performed By: #### 2 249588, 1069512, 7754846, 81834057, 7417282, 3677642 ####[facility] [address] [place] [address] US Liver limitedon 3 No focal intrahepati c lesions noted. The patient is status post cholecystectomy. MACRO: None Signed by: Harshad Tran 02/14/2023 7:30 AM Dictation workstation: [id number] MMODAL Interpreted By: Harshad Tran, STUDY: US ABDOMEN LIMITED LIVER; 02/13/2023 7:27 am INDICATION: Signs/Symptoms:Hx of Hep C. COMPARISON: None. ACCESSION NUMBER(S): [id number] ORDERING CLINICIAN: ANTONIO HUSAIN TECHNIQUE: Multiple images [...] of Hep C. COMPARISON: None. ACCESSION NUMBER(S): [id number] ORDERING CLINICIAN: ANTONIO HUSAIN TECHNIQUE: Multiple images [...] Harshad Tran 02/14/2023 7:30 AM Dictation workstation: [id number] [facility] Work Phone: US Liver limitedOrdered By: Harshad Tran on 02-14-2023 [facility] Work Phone: US ABDOMEN LIMITED LIVERon 1 04-15-2022 US ABDOMEN LIMITED LIVER Interpreted By: Harshad Tran, STUDY: US ABDOMEN LIMITED LIVER; 02/13/2023 7:27 am INDICATION: Signs/Symptoms:Hx of Hep C. COMPARISON: None. ACCESSION NUMBER(S): [id number] ORDERING CLINICIAN: ANTONIO HUSAIN TECHNIQUE: Multiple images [...] Harshad Tran 02/14/2023 7:30 AM Dictation workstation: [id number] [facility] Liver limitedon 3 Radiology Study observation (narrative) [facility] Work Phone: SEROLOGYOrdered By: Zoë lucero on 12-13-2022 HCG.beta subunit (U) [Moles/Vol] Negative Normal [facility] Man Sero URINALYSISOrdered By: Zoë gordon on 12-13-2022 Bacteria [...] Interpretation Code Negative [facility] UA Auto SS Musella.plasma/Musella .RBC (Bld) [Mass ratio] 0-3 /HPF Normal [...] [facility] UA Auto SS Urobilinogen Qn (U) [id number] {Jan'U}/dL Normal 0.0 - 1.0 EU/dL [facility] UA Auto SS WBC Auto Ql (U) Negative (12/13/22 5:52 PM) Normal Negative [facility] UA Auto SS WBC LM.HPF (Urine sed) [#/Area] 0-5 /HPF Normal 0-5/HPF [facility] UA Auto SS CHEMISTRYOrdered By: SYSTEM SYSTEM on 12-12-2022 Anion gap [Moles/Vol] 12 mmol/L Normal 6 - 16 mEq/L [facility] Remisol Calcium [Mass/Vol] 8.6 mg/dL Low 8.9 - 11. 1 mg/dL [facility] Remisol Chloride [Moles/Vol] 110 mmol/L Normal 101 - 1 11 mmol/L [facility] CO2 [Moles/Vol] 19 mmol/L Low 21 - 31 mmol/L [facility] Creatinine [Mass/Vol] 0.9 mg/dL Normal 0.5 - 1.3 mg/dL [facility] Remisol GFR/1.73 sq M.predicted among non-blacks MDRD (S/P/Bld) [Vol rate/Area] 80 mL/min/1.73 m2 Normal >=59mL/min/1 .73 m2 FT Chem S Glucose [Mass/Vol] 132 mg/dL Normal [...] mg/mg Normal 10 - 20 [facility] Remisol HEMATOLOGYOrdered By: SYSTEM SYSTEM on 12-12-2022 Basophils/100 [...] 13.1 % Normal 10.9 - 14.2 % [facility] HemeAutoSS Hematocrit (Bld) [Volume fraction] 42.4 % Normal 34.0 - 46.0 % [facility] HemeAutoSS Hemoglobin (Bld) [Mass/Vol] 14.1 g/dL Normal 12.0 - 16.0 gm/dL [facility] HemeAutoSS MCH (RBC) [Entitic mass] 32.5 pg Normal 27.0 - 34.0 pg [facility] HemeAutoSS MCHC (RBC) [Mass/Vol] 33.4 g/dL Normal 31.4 - 36.0 gm/dL [facility] HemeAutoSS MCV (RBC) [Entitic vol] 97.5 fL Normal 80.0 - 100.0 fL [facility] HemeAutoSS Platelet mean volume (Bld) [Entitic vol] 8.6 fL Normal 6.4 - 10.8 fL [facility] HemeAutoSS Platelets (Bld) [#/Vol] 281.0 E9/L Normal 150.0 - 500.0 E9/L [facility] HemeAutoSS RBC (Bld) [#/Vol] 4.4 E12/L Normal 4.3 - 5.9 E12/L [facility] HemeAutoSS WBC corrected for nucl RBC Auto (Bld) [#/Vol] 14.3 E9/L High 4.0 - 11.0 E9/L [facility] HemeAutoSS Alanine aminotransferase [En zymatic activity/volume] in Serum or PlasmaOrdered By: Mary Beth Croweimore on 12-10-2022 ALT [Catalytic activity/Vol] 39 U/L 7-52 [facility] Albumin [Mass/volume] in Ser um or Plasma by Bromocresol green (BCG) dye binding methoOrdered By: Mary Beth Bullimore on 12-10-2022 Albumin BCG dye [Mass/Vol] 3.7 g/dL 3.5-5.7 [facility] Alkaline phosphatase [Enzyma tic activity/volume] in Serum or PlasmaOrdered By: Mary Beth Bullimore on 12-10-2022 ALP [Catalytic activity/Vol] 70 U/L 34-104 [facility] Amorphous urine sedimentOrde red By: Deb Carmichael on 12-10-2022 Amorphous sediment LM Ql (Urine sed) 2+ [LPF] [facility] Aspartate aminotransferase [ Enzymatic activity/volume] in Serum or PlasmaOrdered By: Mary Beth Sloan on 12-10-2022 AST [Catalytic activity/Vol] 28 U/L 13-39 [facility] Automated erythrocytes count in urine sediment (number/area)Ordered By: Deb Carmichael on 12-10-2022 RBC Auto (Urine sed) [#/Area] 10-19 [HPF] 0-4 [facility] Automated leukocytes count i n urine sediment (number/area)Ordered By: Deb Carmichael on 12-10-2022 WBC Auto (Urine sed) [#/Area] 3-4 [HPF] 0-4 [facility] Basophils Auto (Bld) [#/Vol] Ordered By: Mary Beth Sloan on 12-10-2022 Basophils (Bld) [#/Vol] 0.1 10*3/uL 0.0-0.2 [facility] Basophils/100 WBC Auto (Bld) Ordered By: Mary Beth Sloan on 12-10-2022 Basophils/100 WBC (Bld) 0.5 % . [facility] Bilirubin Test strip Ql (U)O rdered By: Deb Carmichael on 12-10-2022 Bilirubin Ql (U) Negative Negative [facility] Bilirubin.total [Mass/volume ] in Serum or PlasmaOrdered By: Mary Beth Sloan on 12-10-2022 Bilirubin [Mass/Vol] 0.3 mg/dL 0.3-1.0 [facility] Calcium [Mass/volume] in Ser um or PlasmaOrdered By: Mary Beth Sloan on 12-10-2022 Calcium [Mass/Vol] 8.3 mg/dL 8.6-10.3 [facility] Carbon dioxide, total [Moles /volume] in Serum or PlasmaOrdered By: Mary Beth Sloan on 12-10-2022 CO2 [Moles/Vol] 22.2 mmol/L 21.0-31.0 [facility] Chloride [Moles/volume] in S saw or PlasmaOrdered By: Mary Beth Chavezore on 12-10-2022 Chloride [Moles/Vol] 112 mmol/L 98-107 [facility] Color Auto (U)Ordered By: Marva Carmichael on 12-10-2022 Color (U) Yellow Yellow [facility] Creatinine [Mass/volume] in Serum or PlasmaOrdered By: Mary Beth Sloan on 12-10-2022 Creatinine [Mass/Vol] 0.77 mg/dL 0.60-1.20 [facility] Eosinophils Auto (Bld) [#/Vo l]Ordered By: Mary Beth Sloan on 12-10-2022 Eosinophils (Bld) [#/Vol] 0.2 10*3/uL 0.0-0.45 [facility] Eosinophils/100 WBC Auto (Bl d)Ordered By: Mary Beth Sloan on 12-10-2022 Eosinophils/100 WBC (Bld) 1.7 % . [facility] Erythrocyte distribution wid th Auto (RBC) [Ratio]Ordered By: Mary Beth Sloan on 12-10-2022 Erythrocyte distribution width (RBC) [Ratio] 13.3 % 11.9-15.3 [facility] Globulin Calc (S) [Mass/Vol] Ordered By: Mary Beth Sloan on 12-10-2022 Globulin (S) [Mass/Vol] 3.1 g/dL [facility] Glucose [Mass/volume] in Ser um or PlasmaOrdered By: Mary Beth Sloan on 12-10-2022 Glucose [Mass/Vol] 111 mg/dL 70-100 [facility] Comment on above: ADA recommended refe rence rangeRandom Glucose Reference Range is dependent on time and content of last meal. Glucose of more than 200 mg/dL in a nonstressed, ambulatory subject supports the diagnosis of Diabetes Mellitus. Hematocrit Auto (Bld) [Volum e fraction]Ordered By: Mary Beth Sloan on 12-10-2022 Hematocrit (Bld) [Volume fraction] 39.3 % 34.0-46.4 [facility] Hemoglobin [Mass/volume] in BloodOrdered By: Mary Beth Sloan on 12-10-2022 Hemoglobin (Bld) [Mass/Vol] 13.4 g/dL 11.8-15.4 [facility] Ketones Auto test strip (U) [Mass/Vol]Ordered By: Deb Carmichael on 12-10-2022 Ketones (U) [Mass/Vol] Negative Negative Fi [facility] Laboratory - UrinalysisOrder ed By: Deb Adrianeandrewjazmine on 12-10-2022 Hyaline casts LM Ql (Urine sed) 0-8 [LPF] 0-8 [facility] Leukocytes [#/volume] correc lisa for nucleated erythrocytes in Blood by Automated counOrdered By: Mary Beth Croweimceline on 12-10-2022 WBC corrected for nucl RBC Auto (Bld) [#/Vol] 11.1 10*3/uL 3.8-11.6 [facility] Lymphocytes Auto (Bld) [#/Vo l]Ordered By: Mary Beth Croweimore on 12-10-2022 Lymphocytes (Bld) [#/Vol] 2.2 10*3/uL 1.00-4.8 [facility] Lymphocytes/100 WBC Auto (Bl d)Ordered By: Mary Beth Croweimore on 12-10-2022 Lymphocytes/100 WBC (Bld) 20.0 % . [facility] MCH Auto (RBC) [Entitic mass ]Ordered By: Mary Beth Croweimore on 12-10-2022 MCH (RBC) [Entitic mass] 33.4 pg 24.7-34.3 [facility] MCHC Auto (RBC) [Mass/Vol]Or dered By: Mary Beth Bullimore on 12-10-2022 MCHC (RBC) [Mass/Vol] 34.0 g/dL 32.0-35.0 [facility] MCV Auto (RBC) [Entitic vol] Ordered By: Mary Beth Bullimore on 12-10-2022 MCV (RBC) [Entitic vol] 98.2 fL 80-100 [facility] Monocyte distribution width [Entitic volume] in Blood by AutomatedOrdered By: Mary Beth Croweimore on 12-10-2022 Monocyte distribution width Auto (Bld) [Entitic vol] 18.95 % 0.00-20.00 [facility] Monocytes Auto (Bld) [#/Vol] Ordered By: Mary Beth Bullimore on 12-10-2022 Monocytes (Bld) [#/Vol] 0.7 10*3/uL 0.0-0.8 [facility] Monocytes/100 WBC Auto (Bld) Ordered By: Mary Beth Croweimore on 12-10-2022 Monocytes/100 WBC (Bld) 6.2 % . [facility] Neutrophils Auto (Bld) [#/Vo l]Ordered By: Mary Beth Croweimore on 12-10-2022 Neutrophils (Bld) [#/Vol] 7.9 10*3/uL 1.8-7.7 [facility] Neutrophils/100 WBC Auto (Bl d)Ordered By: Mary Beth Croweimore on 12-10-2022 Neutrophils/100 WBC (Bld) 71.6 % . [facility] Nitrite Test strip Ql (U)Ord ered By: Deb Carmichael on 12-10-2022 Nitrite Ql (U) Negative Negative [facility] No Panel InformationOrdered By: Mary Beth Sloan on 12-10-2022 Estimated GFR (CKD-EPI) > 60.0 mL/Min [facility] Creatinine Clearance (Chem 109.22 [facility] Nucleated erythrocytes [Pres ence] in Blood by Automated countOrdered By: Mary Beth Sloan on 12-10-2022 Nucleated RBC Auto Ql (Bld) 0.1 /100{WBC} 0-0.5 [facility] Platelet mean volume Auto (B ld) [Entitic vol]Ordered By: Mary Beth Chavezore on 12-10-2022 Platelet mean volume (Bld) [Entitic vol] 8.5 fL 6.3-10.7 [facility] Platelets Auto (Bld) [#/Vol] Ordered By: Mary Beth Sloan on 12-10-2022 Platelets (Bld) [#/Vol] 228 10*3/uL 150-450 [facility] Potassium [Moles/volume] in Serum or PlasmaOrdered By: Mary Beth Sloan on 12-10-2022 Potassium [Moles/Vol] 3.9 mmol/L 3.5-5.1 [facility] Protein Auto test strip (U) [Mass/Vol]Ordered By: Deb Carmichael on 12-10-2022 Protein (U) [Mass/Vol] Negative Negative [facility] Protein [Mass/volume] in Ser um or PlasmaOrdered By: Mary Beth Sloan on 12-10-2022 Protein [Mass/Vol] 6.8 g/dL 6.4-8.9 [facility] RBC Auto (Bld) [#/Vol]Ordere d By: Mary Beth Chavezore on 12-10-2022 RBC (Bld) [#/Vol] 4.00 10*6/uL 3.60-5.00 [facility] Serum or plasma albumin/glob ulin mass ratioOrdered By: Mary Beth Sloan on 12-10-2022 Albumin/Globulin [Mass ratio] 1.2 {ratio} [facility] Serum or plasma anion gap de terminationOrdered By: Mary Beth Sloan on 12-10-2022 Anion gap [Moles/Vol] 6.7 mmol/L 6.0-15.0 [facility] Sodium [Moles/volume] in Ser um or PlasmaOrdered By: Mary Beth Sloan on 12-10-2022 Sodium [Moles/Vol] 137 mmol/L 136-145 [facility] Specific gravity Auto test s trip (U) [Rel density]Ordered By: Deb Carmichael on 12-10-2022 Specific gravity (U) [Rel density] 1.020 1.001-1.030 [facility] Squamous epithelial cells de tection in urine sediment by light microscopyOrdered By: Deb Carmichael on 12-10-2022 Epithelial cells.squamous LM Ql (Urine sed) 5-9 [HPF] 0-2 [facility] Urea nitrogen [Mass/volume] in Serum or PlasmaOrdered By: Mary Beth Sloan on 12-10-2022 Urea nitrogen [Mass/Vol] 12 mg/dL 7-25 [facility] Urine bacteria detection by automated methodOrdered By: Deb Carmichael on 12-10-2022 Bacteria Auto Ql (U) 3+ None Seen [facility] Urine clarity by refractomet ry automatedOrdered By: Deb Carmichael on 12-10-2022 Clarity Refractometry automated (U) Turbid Clear [facility] Urine glucose measurement by automated test strip (mass/volume)Ordered By: Deb Carmichael on 12-10-2022 Glucose Auto test strip (U) [Mass/Vol] Normal mg/dL Normal [facility] Urine hemoglobin detection b y automated test stripOrdered By: Deb Adrianekath on 12-10-2022 Hemoglobin Auto test strip Ql (U) Negative Negative [facility] Urine leukocyte esterase det ection by automated test stripOrdered By: Deb Forrestkath on 12-10-2022 Leukocyte esterase Auto test strip Ql (U) 1+ Negative [facility] Urine sediment crystal ident ification by light microscopyOrdered By: Deb Forrestkath on 12-10-2022 Crystals LM Nom (Urine sed) None seen [HPF] [facility] Urobilinogen Auto test strip (U) [Mass/Vol]Ordered By: Debvirgil Carmichael on 12-10-2022 Urobilinogen (U) [Mass/Vol] Normal mg/dL Normal [facility] WBC Auto (Bld) [#/Vol]Ordere d By: Mary Beth Sloan on 12-10-2022 WBC (Bld) [#/Vol] 11.1 10*3/uL 3.8-11.6 [facility] pH Auto test strip (U)Ordere d By: Deb Amol on 12-10-2022 pH (U) 8.0 [pH] 5.0-9.0 [facility] Provider Note - ED v3on 10-23 Provider [...] SIGNS: T PRBP SpO2O2(LPM) %FiO2 Method 04-Nov-2022 22:29:[id number] 96 room air, no respiratory support MDM [...] [facility] and that she is not frequently [...] Referenced From Triage - ED 04-Nov-2022 22:29 [facility] Triage - EDon 11-05-2022 Triage - [...] obeys commands Best Verbal Response: (V5) oriented [place] Score: 15 Allergies: yes 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 History: hysterectomy Patient has homicidal thoughts: no [...] Past Medical History, Active Electronic Signatures: Jayna August) (Signed 04-Nov-2022 22:50) Authored: Quick Triage, Chart Review Joe Santoyo (EMT-P) (Signed 04-Nov-2022 22:35) Entered: Risk Screens, Pain, Travel History, Chart Review, Scores, Past Medical History Authored: Quick Triage, Risk Screens, Pain, Travel History, Chart Review, Scores, Past Medical History Last Updated: 04-Nov-2022 22:50 by Jayna August (RN) Normal [facility] Bilirubin Test strip Ql (U)O rdered By: Mary Beth Sloan on 10-16-2022 Bilirubin Ql (U) Negative Negative [facility] Color Auto (U)Ordered By: Pascale Sloan on 10-16-2022 Color (U) Yellow Yellow [facility] Ketones Auto test strip (U) [Mass/Vol]Ordered By: Mary Beth Sloan on 10-16-2022 Ketones (U) [Mass/Vol] Negative Negative [facility] Nitrite Test strip Ql (U)Ord ered By: Mary Beth Sloan on 10-16-2022 Nitrite Ql (U) Negative Negative [facility] Protein Auto test strip (U) [Mass/Vol]Ordered By: Mary Beth Sloan on 10-16-2022 Protein (U) [Mass/Vol] Negative Negative [facility] Specific gravity Auto test s trip (U) [Rel density]Ordered By: Mary Beth Sloan on 10-16-2022 Specific gravity (U) [Rel density] 1.017 1.001-1.030 [facility] Urine clarity by refractomet ry automatedOrdered By: Mary Beth Sloan on 10-16-2022 Clarity Refractometry automated (U) Clear Clear [facility] Urine glucose measurement by automated test strip (mass/volume)Ordered By: Mary Beth Sloan on 10-16-2022 Glucose Auto test strip (U) [Mass/Vol] Normal mg/dL Normal [facility] Urine hemoglobin detection b y automated test stripOrdered By: Mary Beth Sloan on 10-16-2022 Hemoglobin Auto test strip Ql (U) Negative Negative [facility] Urine leukocyte esterase det ection by automated test stripOrdered By: Mary Beth Sloan on 10-16-2022 Leukocyte esterase Auto test strip Ql (U) Negative Negative [facility] Urobilinogen Auto test strip (U) [Mass/Vol]Ordered By: Mary Beth Sloan on 10-16-2022 Urobilinogen (U) [Mass/Vol] Normal mg/dL Normal [facility] pH Auto test strip (U)Ordere d By: Mary Beth Sloan on 10-16-2022 pH (U) 7.0 [pH] 5.0-9.0 [facility] Automated erythrocytes count in urine sediment (number/area)Ordered By: Narciso Bennett on 08-02-2022 RBC Auto (Urine sed) [#/Area] 1-2 [HPF] 0-4 [facility] Automated leukocytes count i n urine sediment (number/area)Ordered By: Narciso Bennett on 08-02-2022 WBC Auto (Urine sed) [#/Area] 3-4 [HPF] 0-4 [facility] Bilirubin Test strip Ql (U)O rdered By: Narciso Bennett on 08-02-2022 Bilirubin Ql (U) Negative Negative [facility] Color Auto (U)Ordered By: Romeo Bennett on 08-02-2022 Color (U) Yellow Yellow [facility] Ketones Auto test strip (U) [Mass/Vol]Ordered By: Narciso Bennett on 08-02-2022 Ketones (U) [Mass/Vol] Trace Negative Fi [facility] Laboratory - UrinalysisOrder ed By: Narciso Bennett on 08-02-2022 Hyaline casts LM Ql (Urine sed) 0-8 [LPF] 0-8 [facility] Nitrite Test strip Ql (U)Ord ered By: Narciso Bennett on 08-02-2022 Nitrite Ql (U) Negative Negative [facility] Protein Auto test strip (U) [Mass/Vol]Ordered By: Narciso Bennett on 08-02-2022 Protein (U) [Mass/Vol] Trace mg/dL Negative F [facility] Specific gravity Auto test s trip (U) [Rel density]Ordered By: Narciso Bennett on 08-02-2022 Specific gravity (U) [Rel density] 1.037 1.001-1.030 [facility] Squamous epithelial cells de tection in urine sediment by light microscopyOrdered By: Narciso Bennett on 08-02-2022 Epithelial cells.squamous LM Ql (Urine sed) 1-2 [HPF] 0-2 [facility] Urine bacteria detection by automated methodOrdered By: Narciso Bennett on 08-02-2022 Bacteria Auto Ql (U) 1+ None Seen [facility] Urine clarity by refractomet ry automatedOrdered By: Narciso Bennett on 08-02-2022 Clarity Refractometry automated (U) Cloudy Clear [facility] Urine glucose measurement by automated test strip (mass/volume)Ordered By: Narciso Bennett on 08-02-2022 Glucose Auto test strip (U) [Mass/Vol] Normal mg/dL Normal [facility] Urine hemoglobin detection b y automated test stripOrdered By: Narciso Bennett on 08-02-2022 Hemoglobin Auto test strip Ql (U) Negative Negative [facility] Urine leukocyte esterase det ection by automated test stripOrdered By: Narciso Bennett on 08-02-2022 Leukocyte esterase Auto test strip Ql (U) Negative Negative [facility] Urobilinogen Auto test strip (U) [Mass/Vol]Ordered By: Narciso Bennett on 08-02-2022 Urobilinogen (U) [Mass/Vol] Normal mg/dL Normal [facility] pH Auto test strip (U)Ordere d By: Narciso Bennett on 08-02-2022 pH (U) 6.5 [pH] 5.0-9.0 [facility] Automated erythrocytes count in urine sediment (number/area)Ordered By: Mary Beth Sloan on 06-16-2022 RBC Auto (Urine sed) [#/Area] 1-2 [HPF] 0-4 [facility] Automated leukocytes count i n urine sediment (number/area)Ordered By: Mary Beth Sloan on 06-16-2022 WBC Auto (Urine sed) [#/Area] 0-1 [HPF] 0-4 [facility] Bilirubin Test strip Ql (U)O rdered By: Mary Beth Sloan on 06-16-2022 Bilirubin Ql (U) Negative Negative [facility] Color Auto (U)Ordered By: Pascale Sloan on 06-16-2022 Color (U) Yellow Yellow [facility] Ketones Auto test strip (U) [Mass/Vol]Ordered By: Mary Beth Sloan on 06-16-2022 Ketones (U) [Mass/Vol] Negative Negative [facility] Laboratory - UrinalysisOrder ed By: Mary Beth Sloan on 06-16-2022 Hyaline casts LM Ql (Urine sed) None seen [LPF] 0-8 [facility] Nitrite Test strip Ql (U)Ord ered By: Mary Beth Sloan on 06-16-2022 Nitrite Ql (U) Negative Negative [facility] Protein Auto test strip (U) [Mass/Vol]Ordered By: Mary Beth Sloan on 06-16-2022 Protein (U) [Mass/Vol] Negative Negative [facility] Specific gravity Auto test s trip (U) [Rel density]Ordered By: Mary Beth Sloan on 06-16-2022 Specific gravity (U) [Rel density] 1.017 1.001-1.030 [facility] Squamous epithelial cells de tection in urine sediment by light microscopyOrdered By: Mary Beth Sloan on 06-16-2022 Epithelial cells.squamous LM Ql (Urine sed) 1-2 [HPF] 0-2 [facility] Urine bacteria detection by automated methodOrdered By: Mary Beth Sloan on 06-16-2022 Bacteria Auto Ql (U) None seen None Seen [facility] Urine clarity by refractomet ry automatedOrdered By: Mary Beth Sloan on 06-16-2022 Clarity Refractometry automated (U) Turbid Clear [facility] Urine glucose measurement by automated test strip (mass/volume)Ordered By: Mary Beth Sloan on 06-16-2022 Glucose Auto test strip (U) [Mass/Vol] Normal mg/dL Normal [facility] Urine hemoglobin detection b y automated test stripOrdered By: Mary Beth Sloan on 06-16-2022 Hemoglobin Auto test strip Ql (U) Negative Negative [facility] Urine leukocyte esterase det ection by automated test stripOrdered By: Mary Beth Sloan on 06-16-2022 Leukocyte esterase Auto test strip Ql (U) Negative Negative [facility] Urobilinogen Auto test strip (U) [Mass/Vol]Ordered By: Mary Beth Sloan on 06-16-2022 Urobilinogen (U) [Mass/Vol] Normal mg/dL Normal [facility] pH Auto test strip (U)Ordere d By: Mary Beth Sloan on 06-16-2022 pH (U) [pH] 5.0-9.0 [facility] Activated partial thrombopla stin time (aPTT) in platelet poor plasma by coagulation aOrdered By: José Miguel Mcnamara on 03-19-2022 aPTT Coag (PPP) [Time] 32.5 s 25.1-36.5 [facility] Albumin [Mass/volume] in Ser um or PlasmaOrdered By: José Miguel Mcnamara on 03-19-2022 Albumin [Mass/Vol] 3.6 g/dL 3.2-5.5 [facility] Basophils Auto (Bld) [#/Vol] Ordered By: José Miguel Mcnamara on 03-19-2022 Basophils (Bld) [#/Vol] 0.0 10*3/uL 0.0-0.2 [facility] Basophils/100 WBC Auto (Bld) Ordered By: José Miguel Mcnamara on 03-19-2022 Basophils/100 WBC (Bld) 0.1 % . [facility] COVID CepheidOrdered By: Anel Mcnamara on 03-19-2022 SARS-CoV-2 (COVID-19) Ab IA Ql Negative Negative [facility] Comment on above: This is a duplicate [employer] Xpert Xpress CoV-2/Flu/RSV Plus RNA by RT-PCR result to be used for statistical tracking purpose only. SARS-CoV-2 (COVID-19) RNA LINDSEY+probe Ql (Unsp spec) [facility] SARS-CoV-2 (COVID-19) RNA LINDSEY+probe Ql (Unsp spec) [facility] Creatinine and Glomerular fi ltration rate.predicted panel (S/P/Bld)Ordered By: José Miguel Mcnamara on 03-19-2022 Creatinine [Mass/Vol] 0.79 mg/dL 0.44-1.03 [facility] Direct bilirubin measurement Ordered By: José Miguel Mcnamara on 03-19-2022 Bilirubin.direct [Mass/Vol] 0.1 mg/dL 0.0-0.4 [facility] Eosinophils Auto (Bld) [#/Vo l]Ordered By: José Miguel Mcnamara on 03-19-2022 Eosinophils (Bld) [#/Vol] 0.0 10*3/uL 0.0-0.45 [facility] Eosinophils/100 WBC Auto (Bl d)Ordered By: José Miguel Mcnamara on 03-19-2022 Eosinophils/100 WBC (Bld) 0.8 % . [facility] Erythrocyte distribution wid th Auto (RBC) [Ratio]Ordered By: José Miguel Mcnamara on 03-19-2022 Erythrocyte distribution width (RBC) [Ratio] 13.2 % 11.9-15.3 [facility] Estimated glomerular filtrat ion rate (GFR) non- AmericanOrdered By: José Miguel Mcnamara on 03-19-2022 GFR/1.73 sq M.predicted among non-blacks MDRD (S/P/Bld) [Vol rate/Area] > 60 mL/Min [facility] Globulin Calc (S) [Mass/Vol] Ordered By: José Miguel Mcnamara on 03-19-2022 Globulin (S) [Mass/Vol] 3.3 g/dL [facility] HCG ( test) IA.rapi d Ql (U)Ordered By: Jorge Dan on 03-19-2022 HCG ( test) Ql (U) Negative [facility] Hematocrit Auto (Bld) [Volum e fraction]Ordered By: José Miguel Mcnamara on 03-19-2022 Hematocrit (Bld) [Volume fraction] 40.0 % 34.0-46.4 [facility] Hemoglobin [Mass/volume] in BloodOrdered By: José Miguel Mcnamara on 03-19-2022 Hemoglobin (Bld) [Mass/Vol] 13.5 g/dL 11.8-15.4 [facility] Laboratory - CoagulationOrde red By: José Miguel Mcnamara on 03-19-2022 PT Coag (PPP) [Time] 12.4 s 9.0-12.9 [facility] Leukocytes [#/volume] correc lisa for nucleated erythrocytes in Blood by Automated counOrdered By: José Miguel Mcnamara on 03-19-2022 WBC corrected for nucl RBC Auto (Bld) [#/Vol] 3.2 10*3/uL 3.8-11.6 [facility] Lymphocytes Auto (Bld) [#/Vo l]Ordered By: José Miguel Mcnamara on 03-19-2022 Lymphocytes (Bld) [#/Vol] 1.6 10*3/uL 1.00-4.8 [facility] Lymphocytes/100 WBC Auto (Bl d)Ordered By: José Miguel Mcnamara on 03-19-2022 Lymphocytes/100 WBC (Bld) 49.4 % . [facility] MCH Auto (RBC) [Entitic mass ]Ordered By: José Miguel Mcnamara on 03-19-2022 MCH (RBC) [Entitic mass] 31.6 pg 24.7-34.3 [facility] MCHC Auto (RBC) [Mass/Vol]Or dered By: José Miguel Mcnamara on 03-19-2022 MCHC (RBC) [Mass/Vol] 33.8 g/dL 32.0-35.0 [facility] MCV Auto (RBC) [Entitic vol] Ordered By: José Miguel Mcnamara on 03-19-2022 MCV (RBC) [Entitic vol] 93.4 fL 80-100 [facility] Monocyte distribution width [Entitic volume] in Blood by AutomatedOrdered By: José Miguel Mcnamara on 03-19-2022 Monocyte distribution width Auto (Bld) [Entitic vol] 19.83 % 0.00-20.00 [facility] Monocytes Auto (Bld) [#/Vol] Ordered By: José Miguel Mcnamara on 03-19-2022 Monocytes (Bld) [#/Vol] 0.4 10*3/uL 0.0-0.8 [facility] Monocytes/100 WBC Auto (Bld) Ordered By: José Miguel Mcnamara on 03-19-2022 Monocytes/100 WBC (Bld) 11.7 % . [facility] Neutrophils Auto (Bld) [#/Vo l]Ordered By: José Miguel Mcnamara on 03-19-2022 Neutrophils (Bld) [#/Vol] 1.2 10*3/uL 1.8-7.7 [facility] Neutrophils/100 WBC Auto (Bl d)Ordered By: José Miguel Mcnamara on 03-19-2022 Neutrophils/100 WBC (Bld) 38.0 % . [facility] No Panel InformationOrdered By: José Miguel Mcnamara on 03-19-2022 Estimated GFR () > 60 mL/Min [facility] Comment on above: GFR estimated refere nce range: According to KDOQI guidelines, <60 ml/min/1.73m2 is sufficient to diagnose a patient with chronic kidney disease. Pharmacy Creatinine Clearance (Chem 107.22 [facility] Nucleated erythrocytes [Pres ence] in Blood by Automated countOrdered By: José Miguel Mcnamara on 03-19-2022 Nucleated RBC Auto Ql (Bld) 0.3 /100{WBC} 0-0.5 [facility] Platelet mean volume Auto (B ld) [Entitic vol]Ordered By: José Miguel Mcnamara on 03-19-2022 Platelet mean volume (Bld) [Entitic vol] 9.5 fL 6.3-10.7 [facility] Platelet poor plasma interna tional normalized ratio (INR) by coagulation assay (relatOrdered By: José Miguel Mcnamara on 03-19-2022 INR Coag (PPP) [Relative time] 1.1 {INR} [facility] Comment on above: INR Therapeutic Rang e [...] 03-19-2022 Platelets (Bld) [#/Vol] 206 10*3/uL 150-450 [facility] Protein [Mass/volume] in Ser um or PlasmaOrdered By: José Miguel Mcnamara on 03-19-2022 Protein [Mass/Vol] 6.9 g/dL 6.1-7.9 [facility] RBC Auto (Bld) [#/Vol]Ordere d By: José Miguel Mcnamara on 03-19-2022 RBC (Bld) [#/Vol] 4.28 10*6/uL 3.60-5.00 [facility] Serum or plasma alanine cardoso otransferase measurement without P-5'-P (enzymatic activiOrdered By: José Miguel Mcnamara on 03-19-2022 ALT No additional P-5'-P [Catalytic activity/Vol] 86 U/L 10-60 [facility] Serum or plasma albumin/glob ulin mass ratioOrdered By: José Miguel Mcnamara on 03-19-2022 Albumin/Globulin [Mass ratio] 1.1 {ratio} [facility] Serum or plasma alkaline sintia sphatase measurement (enzymatic activity/volume)Ordered By: José Miguel Mcnamara on 03-19-2022 ALP [Catalytic activity/Vol] 65 U/L 32-92 [facility] Serum or plasma anion gap de terminationOrdered By: José Miguel Mcnamara on 03-19-2022 Anion gap [Moles/Vol] 9.9 mmol/L 6.0-15.0 [facility] Serum or plasma aspartate am inotransferase measurement (enzymatic activity/volume)Ordered By: José Miguel Mcnamara on 03-19-2022 AST [Catalytic activity/Vol] 74 U/L 10-42 [facility] Serum or plasma calcium skyla urement (mass/volume)Ordered By: José Miguel Mcnamara on 03-19-2022 Calcium [Mass/Vol] 8.3 mg/dL 8.2-10.2 [facility] Serum or plasma chloride florin surement (moles/volume)Ordered By: José Miguel Mcnamara on 03-19-2022 Chloride [Moles/Vol] 108 mmol/L 95-114 [facility] Serum or plasma glucose skyla urement (mass/volume)Ordered By: José Miguel Mcnamara on 03-19-2022 Glucose [Mass/Vol] 100 mg/dL 70-100 [facility] Comment on above: ADA recommended refe rence rangeRandom Glucose Reference Range is dependent on time and content of last meal. Glucose of more than 200 mg/dL in a nonstressed, ambulatory subject supports the diagnosis of Diabetes Mellitus. Serum or plasma non-glucuron idated bilirubin measurement (mass/volume)Ordered By: José Miguel Mcnamara on 03-19-2022 Bilirubin.indirect [Mass/Vol] 0.4 mg/dL [facility] Serum or plasma potassium me asurement (moles/volume)Ordered By: José Miguel Mcnamara on 03-19-2022 Potassium [Moles/Vol] 3.2 mmol/L 3.5-5.1 [facility] Serum or plasma sodium measu rement (moles/volume)Ordered By: José Miguel Mcnamara on 03-19-2022 Sodium [Moles/Vol] 136 mmol/L 136-146 [facility] Serum or plasma total biliru bin measurement (mass/volume)Ordered By: José Miguel Mcnamara on 03-19-2022 Bilirubin [Mass/Vol] 0.5 mg/dL 0.3-1.2 [facility] Serum or plasma total carbon dioxide measurement (moles/volume)Ordered By: José Miguel Mcnamara on 03-19-2022 CO2 [Moles/Vol] 21.3 mmol/L 22.0-30.0 [facility] Serum or plasma urea nitroge n measurement (mass/volume)Ordered By: José Miguel Mcnamara on 03-19-2022 Urea nitrogen [Mass/Vol] 5 mg/dL 9-23 [facility] WBC Auto (Bld) [#/Vol]Ordere d By: José Miguel Mcnamara on 03-19-2022 WBC (Bld) [#/Vol] 3.2 10*3/uL 3.8-11.6 [facility] Basophils Auto (Bld) [#/Vol] Ordered By: Berto Villasenor on 03-17-2022 Basophils (Bld) [#/Vol] 0.0 10*3/uL 0.0-0.2 [facility] Basophils/100 WBC Auto (Bld) Ordered By: Berto Villasenor on 03-17-2022 Basophils/100 WBC (Bld) 0.6 % . [facility] Body fluid albumin measureme nt (mass/volume)Ordered By: Berto Villasenor on 03-17-2022 Albumin (Body fld) [Mass/Vol] 3.7 g/dL 3.2-5.5 [facility] Creatinine and Glomerular fi ltration rate.predicted panel (S/P/Bld)Ordered By: Berto Villasenor on 03-17-2022 Creatinine [Mass/Vol] 0.80 mg/dL 0.44-1.03 [facility] Direct bilirubin measurement Ordered By: Berto Villasenor on 03-17-2022 Bilirubin.direct [Mass/Vol] 0.2 mg/dL 0.0-0.4 [facility] Eosinophils Auto (Bld) [#/Vo l]Ordered By: Berto Villasenor on 03-17-2022 Eosinophils (Bld) [#/Vol] 0.0 10*3/uL 0.0-0.45 [facility] Eosinophils/100 WBC Auto (Bl d)Ordered By: Berto Villasenor on 03-17-2022 Eosinophils/100 WBC (Bld) 0.5 % . [facility] Erythrocyte distribution wid th Auto (RBC) [Ratio]Ordered By: Berto Villasenor on 03-17-2022 Erythrocyte distribution width (RBC) [Ratio] 13.3 % 11.9-15.3 [facility] Estimated glomerular filtrat ion rate (GFR) non- AmericanOrdered By: Berto Villasenor on 03-17-2022 GFR/1.73 sq M.predicted among non-blacks MDRD (S/P/Bld) [Vol rate/Area] > 60 mL/Min [facility] Globulin Calc (S) [Mass/Vol] Ordered By: Berto Villasenor on 03-17-2022 Globulin (S) [Mass/Vol] 3.1 g/dL [facility] Hematocrit Auto (Bld) [Volum e fraction]Ordered By: Berto Villasenor on 03-17-2022 Hematocrit (Bld) [Volume fraction] 40.8 % 34.0-46.4 [facility] Hemoglobin [Mass/volume] in BloodOrdered By: Berto Villasenor on 03-17-2022 Hemoglobin (Bld) [Mass/Vol] 13.8 g/dL 11.8-15.4 [facility] Leukocytes [#/volume] correc lisa for nucleated erythrocytes in Blood by Automated counOrdered By: Berto Villasenor on 03-17-2022 WBC corrected for nucl RBC Auto (Bld) [#/Vol] 5.2 10*3/uL 3.8-11.6 [facility] Lymphocytes Auto (Bld) [#/Vo l]Ordered By: Berto Villasenor on 03-17-2022 Lymphocytes (Bld) [#/Vol] 1.8 10*3/uL 1.00-4.8 [facility] Lymphocytes/100 WBC Auto (Bl d)Ordered By: Berto Villasenor on 03-17-2022 Lymphocytes/100 WBC (Bld) 34.2 % . [facility] MCH Auto (RBC) [Entitic mass ]Ordered By: Berto Villasenor on 03-17-2022 MCH (RBC) [Entitic mass] 31.8 pg 24.7-34.3 [facility] MCHC Auto (RBC) [Mass/Vol]Or dered By: Berto Villasenor on 03-17-2022 MCHC (RBC) [Mass/Vol] 33.7 g/dL 32.0-35.0 [facility] MCV Auto (RBC) [Entitic vol] Ordered By: Berto Villasenor on 03-17-2022 MCV (RBC) [Entitic vol] 94.2 fL 80-100 [facility] Monocyte distribution width [Entitic volume] in Blood by AutomatedOrdered By: Berto Villasenor on 03-17-2022 Monocyte distribution width Auto (Bld) [Entitic vol] 20.70 % 0.00-20.00 [facility] Comment on above: For adults in ED, MD W > 20.0 may be associated with a higher risk of sepsis during the first 12 hrs of hospital admission Monocytes Auto (Bld) [#/Vol] Ordered By: Berto Villasenor on 03-17-2022 Monocytes (Bld) [#/Vol] 0.5 10*3/uL 0.0-0.8 [facility] Monocytes/100 WBC Auto (Bld) Ordered By: Berto Villasenor on 03-17-2022 Monocytes/100 WBC (Bld) 9.1 % . [facility] Neutrophils Auto (Bld) [#/Vo l]Ordered By: Berto Villasenor on 03-17-2022 Neutrophils (Bld) [#/Vol] 2.9 10*3/uL 1.8-7.7 [facility] Neutrophils/100 WBC Auto (Bl d)Ordered By: Berto Villasenor on 03-17-2022 Neutrophils/100 WBC (Bld) 55.6 % . [facility] No Panel InformationOrdered By: Berto Villasenor on 03-17-2022 Estimated GFR () > 60 mL/Min [facility] Comment on above: GFR estimated refere nce range: According to KDOQI guidelines, <60 ml/min/1.73m2 is sufficient to diagnose a patient with chronic kidney disease. Pharmacy Creatinine Clearance (Chem 106.22 [facility] Nucleated erythrocytes [Pres ence] in Blood by Automated countOrdered By: Berto Villasenor on 03-17-2022 Nucleated RBC Auto Ql (Bld) 0.6 /100{WBC} 0-0.5 [facility] Platelet mean volume Auto (B ld) [Entitic vol]Ordered By: Berto Villasenor on 03-17-2022 Platelet mean volume (Bld) [Entitic vol] 9.0 fL 6.3-10.7 [facility] Platelets Auto (Bld) [#/Vol] Ordered By: Berto Villasenor on 03-17-2022 Platelets (Bld) [#/Vol] 225 10*3/uL 150-450 [facility] Protein [Mass/volume] in Ser um or PlasmaOrdered By: Berto Villasenor on 03-17-2022 Protein [Mass/Vol] 6.8 g/dL 6.1-7.9 [facility] RBC Auto (Bld) [#/Vol]Ordere d By: Berto Villasenor on 03-17-2022 RBC (Bld) [#/Vol] 4.33 10*6/uL 3.60-5.00 [facility] Serum or plasma alanine cardoso otransferase measurement without P-5'-P (enzymatic activiOrdered By: Berto Villasenor on 03-17-2022 ALT No additional P-5'-P [Catalytic activity/Vol] 87 U/L 10-60 [facility] Serum or plasma albumin/glob ulin mass ratioOrdered By: Berto Villasenor on 03-17-2022 Albumin/Globulin [Mass ratio] 1.2 {ratio} [facility] Serum or plasma alkaline sintia sphatase measurement (enzymatic activity/volume)Ordered By: Berto Villasenor on 03-17-2022 ALP [Catalytic activity/Vol] 71 U/L 32-92 [facility] Serum or plasma anion gap de terminationOrdered By: Berto Villasenor on 03-17-2022 Anion gap [Moles/Vol] 12.6 mmol/L 6.0-15.0 [facility] Serum or plasma aspartate am inotransferase measurement (enzymatic activity/volume)Ordered By: Berto Villasenor on 03-17-2022 AST [Catalytic activity/Vol] 71 U/L 10-42 [facility] Serum or plasma calcium skyla urement (mass/volume)Ordered By: Berto Villasenor on 03-17-2022 Calcium [Mass/Vol] 8.5 mg/dL 8.2-10.2 [facility] Serum or plasma chloride florin surement (moles/volume)Ordered By: Berto Villasenor on 03-17-2022 Chloride [Moles/Vol] 110 mmol/L 95-114 [facility] Serum or plasma glucose skyla urement (mass/volume)Ordered By: Berto Villasenor on 03-17-2022 Glucose [Mass/Vol] 98 mg/dL 70-100 [facility] Comment on above: ADA recommended refe rence rangeRandom Glucose Reference Range is dependent on time and content of last meal. Glucose of more than 200 mg/dL in a nonstressed, ambulatory subject supports the diagnosis of Diabetes Mellitus. Serum or plasma non-glucuron idated bilirubin measurement (mass/volume)Ordered By: Berto Villasenor on 03-17-2022 Bilirubin.indirect [Mass/Vol] 0.4 mg/dL [facility] Serum or plasma potassium me asurement (moles/volume)Ordered By: Berto Villasenor on 03-17-2022 Potassium [Moles/Vol] 4.1 mmol/L 3.5-5.1 [facility] Serum or plasma sodium measu rement (moles/volume)Ordered By: Berto Villasenor on 03-17-2022 Sodium [Moles/Vol] 138 mmol/L 136-146 [facility] Serum or plasma total biliru bin measurement (mass/volume)Ordered By: Berto Villasenor on 03-17-2022 Bilirubin [Mass/Vol] 0.6 mg/dL 0.3-1.2 [facility] Serum or plasma total carbon dioxide measurement (moles/volume)Ordered By: Berto Villasenor on 03-17-2022 CO2 [Moles/Vol] 19.5 mmol/L 22.0-30.0 [facility] Serum or plasma urea nitroge n measurement (mass/volume)Ordered By: Berto Villasenor on 03-17-2022 Urea nitrogen [Mass/Vol] 9 mg/dL 12-15 [facility] WBC Auto (Bld) [#/Vol]Ordere d By: Berto Villasenor on 03-17-2022 WBC (Bld) [#/Vol] 5.2 10*3/uL 3.8-11.6 [facility] Activated partial thrombopla stin time (aPTT) in platelet poor plasma by coagulation aOrdered By: Cameron Rene on 03-14-2022 aPTT Coag (PPP) [Time] 22.4 s 25.1-36.5 [facility] Albumin [Mass/volume] in Ser um or PlasmaOrdered By: Cameron Rene on 03-14-2022 Albumin [Mass/Vol] 3.7 g/dL 3.2-5.5 [facility] Automated erythrocytes count in urine sediment (number/area)Ordered By: Cameron Rene on 03-14-2022 RBC Auto (Urine sed) [#/Area] 0-1 [HPF] 0-4 [facility] Automated leukocytes count i n urine sediment (number/area)Ordered By: Cameron Rene on 03-14-2022 WBC Auto (Urine sed) [#/Area] 0-1 [HPF] 0-4 [facility] Basophils Auto (Bld) [#/Vol] Ordered By: Cameron Rene on 03-14-2022 Basophils (Bld) [#/Vol] 0.0 10*3/uL 0.0-0.2 [facility] Basophils/100 WBC Auto (Bld) Ordered By: Cameron Rene on 03-14-2022 Basophils/100 WBC (Bld) 0.2 % . [facility] Bilirubin Test strip Ql (U)O rdered By: Cameron Rene on 03-14-2022 Bilirubin Ql (U) Negative Negative [facility] Color Auto (U)Ordered By: Bo deann Edgard on 03-14-2022 Color (U) Dark yellow Yellow [facility] Creatinine and Glomerular fi ltration rate.predicted panel (S/P/Bld)Ordered By: Cameron Rene on 03-14-2022 Creatinine [Mass/Vol] 0.86 mg/dL 0.44-1.03 [facility] Eosinophils Auto (Bld) [#/Vo l]Ordered By: Cameron Rene on 03-14-2022 Eosinophils (Bld) [#/Vol] 0.1 10*3/uL 0.0-0.45 [facility] Eosinophils/100 WBC Auto (Bl d)Ordered By: Cameron Rene on 03-14-2022 Eosinophils/100 WBC (Bld) 1.2 % . [facility] Erythrocyte distribution wid th Auto (RBC) [Ratio]Ordered By: Cameron Rene on 03-14-2022 Erythrocyte distribution width (RBC) [Ratio] 13.3 % 11.9-15.3 [facility] Estimated glomerular filtrat ion rate (GFR) non- AmericanOrdered By: Cameron Rene on 03-14-2022 GFR/1.73 sq M.predicted among non-blacks MDRD (S/P/Bld) [Vol rate/Area] > 60 mL/Min [facility] Fecal occult blood detection by immunochemistryOrdered By: Cameron Rene on 03-14-2022 Hemoglobin.gastrointes tinal Ql (Stl) [facility] Globulin Calc (S) [Mass/Vol] Ordered By: Cameron Rene on 03-14-2022 Globulin (S) [Mass/Vol] 3.8 g/dL [facility] Hematocrit Auto (Bld) [Volum e fraction]Ordered By: Cameron Rene on 03-14-2022 Hematocrit (Bld) [Volume fraction] 43.7 % 34.0-46.4 [facility] Hemoglobin [Mass/volume] in BloodOrdered By: Cameron Rene on 03-14-2022 Hemoglobin (Bld) [Mass/Vol] 14.6 g/dL 11.8-15.4 [facility] Ketones Auto test strip (U) [Mass/Vol]Ordered By: Cameron Rene on 03-14-2022 Ketones (U) [Mass/Vol] Trace Negative Fi [facility] Laboratory - CoagulationOrde red By: Cameron Rene on 03-14-2022 PT Coag (PPP) [Time] 12.4 s 9.0-12.9 [facility] Laboratory - UrinalysisOrder ed By: Cameron Rene on 03-14-2022 Hyaline casts LM Ql (Urine sed) 0-8 [LPF] 0-8 [facility] Leukocytes [#/volume] correc lisa for nucleated erythrocytes in Blood by Automated counOrdered By: Cameron Rene on 03-14-2022 WBC corrected for nucl RBC Auto (Bld) [#/Vol] 6.8 10*3/uL 3.8-11.6 [facility] Lymphocytes Auto (Bld) [#/Vo l]Ordered By: Cameron Rene on 03-14-2022 Lymphocytes (Bld) [#/Vol] 2.2 10*3/uL 1.00-4.8 [facility] Lymphocytes/100 WBC Auto (Bl d)Ordered By: Cameron Rene on 03-14-2022 Lymphocytes/100 WBC (Bld) 32.9 % . [facility] MCH Auto (RBC) [Entitic mass ]Ordered By: Cameron Rene on 03-14-2022 MCH (RBC) [Entitic mass] 31.2 pg 24.7-34.3 [facility] MCHC Auto (RBC) [Mass/Vol]Or dered By: Cameron Rene on 03-14-2022 MCHC (RBC) [Mass/Vol] 33.3 g/dL 32.0-35.0 [facility] MCV Auto (RBC) [Entitic vol] Ordered By: Cameron Rene on 03-14-2022 MCV (RBC) [Entitic vol] 93.7 fL 80-100 [facility] Monocyte distribution width [Entitic volume] in Blood by AutomatedOrdered By: Cameron Rene on 03-14-2022 Monocyte distribution width Auto (Bld) [Entitic vol] 18.75 % 0.00-20.00 [facility] Monocytes Auto (Bld) [#/Vol] Ordered By: Cameron Rene on 03-14-2022 Monocytes (Bld) [#/Vol] 0.4 10*3/uL 0.0-0.8 [facility] Monocytes/100 WBC Auto (Bld) Ordered By: Cameron Rene on 03-14-2022 Monocytes/100 WBC (Bld) 6.1 % . [facility] Neutrophils Auto (Bld) [#/Vo l]Ordered By: Cameron Rene on 03-14-2022 Neutrophils (Bld) [#/Vol] 4.0 10*3/uL 1.8-7.7 [facility] Neutrophils/100 WBC Auto (Bl d)Ordered By: Cameron Rene on 03-14-2022 Neutrophils/100 WBC (Bld) 59.6 % . [facility] Nitrite Test strip Ql (U)Ord ered By: Cameron Rene on 03-14-2022 Nitrite Ql (U) Negative Negative [facility] No Panel InformationOrdered By: Cameron Rene on 03-14-2022 Estimated GFR () > 60 mL/Min [facility] Comment on above: GFR estimated refere nce range: According to KDOQI guidelines, <60 ml/min/1.73m2 is sufficient to diagnose a patient with chronic kidney disease. Pharmacy Creatinine Clearance (Chem 98.52 [facility] Nucleated erythrocytes [Pres ence] in Blood by Automated countOrdered By: Cameron Rene on 03-14-2022 Nucleated RBC Auto Ql (Bld) 0.1 /100{WBC} 0-0.5 [facility] Platelet mean volume Auto (B ld) [Entitic vol]Ordered By: Cameron Rene on 03-14-2022 Platelet mean volume (Bld) [Entitic vol] 9.1 fL 6.3-10.7 [facility] Platelet poor plasma interna tional normalized ratio (INR) by coagulation assay (relatOrdered By: Cameron Rene on 03-14-2022 INR Coag (PPP) [Relative time] 1.1 {INR} [facility] Comment on above: INR Therapeutic Rang e [...] 03-14-2022 Platelets (Bld) [#/Vol] 279 10*3/uL 150-450 [facility] Protein Auto test strip (U) [Mass/Vol]Ordered By: Cameron Rene on 03-14-2022 Protein (U) [Mass/Vol] Trace mg/dL Negative [facility] Protein [Mass/volume] in Ser um or PlasmaOrdered By: Cameron Rene on 03-14-2022 Protein [Mass/Vol] 7.5 g/dL 6.1-7.9 [facility] RBC Auto (Bld) [#/Vol]Ordere d By: Cameron Rene on 03-14-2022 RBC (Bld) [#/Vol] 4.66 10*6/uL 3.60-5.00 [facility] Serum or plasma alanine cardoso otransferase measurement without P-5'-P (enzymatic activiOrdered By: Cameron Rene on 03-14-2022 ALT No additional P-5'-P [Catalytic activity/Vol] 86 U/L 10-60 [facility] Serum or plasma albumin/glob ulin mass ratioOrdered By: Cameron Rene on 03-14-2022 Albumin/Globulin [Mass ratio] 1.0 {ratio} [facility] Serum or plasma alkaline sintia sphatase measurement (enzymatic activity/volume)Ordered By: Cameron Rene on 03-14-2022 ALP [Catalytic activity/Vol] 69 U/L 32-92 [facility] Serum or plasma anion gap de terminationOrdered By: Cameron Rene on 03-14-2022 Anion gap [Moles/Vol] 11.6 mmol/L 6.0-15.0 [facility] Serum or plasma aspartate am inotransferase measurement (enzymatic activity/volume)Ordered By: Cameron Rene on 03-14-2022 AST [Catalytic activity/Vol] 70 U/L 10-42 [facility] Serum or plasma calcium skyla urement (mass/volume)Ordered By: Cameron Rene on 03-14-2022 Calcium [Mass/Vol] 8.3 mg/dL 8.2-10.2 [facility] Serum or plasma chloride florin surement (moles/volume)Ordered By: Cameron Rene on 03-14-2022 Chloride [Moles/Vol] 108 mmol/L 95-114 [facility] Serum or plasma glucose skyla urement (mass/volume)Ordered By: Cameron Rene on 03-14-2022 Glucose [Mass/Vol] 105 mg/dL 70-100 [facility] Comment on above: ADA recommended refe rence rangeRandom Glucose Reference Range is dependent on time and content of last meal. Glucose of more than 200 mg/dL in a nonstressed, ambulatory subject supports the diagnosis of Diabetes Mellitus. Serum or plasma potassium me asurement (moles/volume)Ordered By: Cameron Rene on 03-14-2022 Potassium [Moles/Vol] 3.9 mmol/L 3.5-5.1 [facility] Serum or plasma sodium measu rement (moles/volume)Ordered By: Cameron Rene on 03-14-2022 Sodium [Moles/Vol] 135 mmol/L 136-146 [facility] Serum or plasma total biliru bin measurement (mass/volume)Ordered By: Cameron Rene on 03-14-2022 Bilirubin [Mass/Vol] 0.7 mg/dL 0.3-1.2 [facility] Serum or plasma total carbon dioxide measurement (moles/volume)Ordered By: Cameron Rene on 03-14-2022 CO2 [Moles/Vol] 19.3 mmol/L 22.0-30.0 [facility] Serum or plasma urea nitroge n measurement (mass/volume)Ordered By: Cameron Rene on 03-14-2022 Urea nitrogen [Mass/Vol] 11 mg/dL 9-23 [facility] Specific gravity Auto test s trip (U) [Rel density]Ordered By: Cameron Rene on 03-14-2022 Specific gravity (U) [Rel density] 1.030 1.001-1.030 [facility] Squamous epithelial cells de tection in urine sediment by light microscopyOrdered By: Cameron Rene on 03-14-2022 Epithelial cells.squamous LM Ql (Urine sed) 3-4 [HPF] 0-2 [facility] Urine bacteria detection by automated methodOrdered By: Cameron Rene on 03-14-2022 Bacteria Auto Ql (U) None seen None Seen [facility] Urine clarity by refractomet ry automatedOrdered By: Cameron Rene on 03-14-2022 Clarity Refractometry automated (U) Clear Clear [facility] Urine glucose measurement by automated test strip (mass/volume)Ordered By: Cameron Rene on 03-14-2022 Glucose Auto test strip (U) [Mass/Vol] Normal mg/dL Normal [facility] Urine hemoglobin detection b y automated test stripOrdered By: Cameron Rene on 03-14-2022 Hemoglobin Auto test strip Ql (U) Negative Negative [facility] Urine lactic acid measuremen tOrdered By: Cameron Rene on 03-14-2022 Lactate (U) [Moles/Vol] 1.0 mmol/L 0.5-2.2 [facility] Urine leukocyte esterase det ection by automated test stripOrdered By: Cameron Rene on 03-14-2022 Leukocyte esterase Auto test strip Ql (U) Negative Negative [facility] Urobilinogen Auto test strip (U) [Mass/Vol]Ordered By: Cameron Rene on 03-14-2022 Urobilinogen (U) [Mass/Vol] Normal mg/dL Normal [facility] WBC Auto (Bld) [#/Vol]Ordere d By: Cameron Rene on 03-14-2022 WBC (Bld) [#/Vol] 6.8 10*3/uL 3.8-11.6 [facility] pH Auto test strip (U)Ordere d By: Cameron Rene on 03-14-2022 pH (U) 6.5 [pH] 5.0-9.0 [facility] Urine culture routineOrdered By: Dalton Ceja on 02-05-2022 Bacteria identified Cx Nom (U) Escherichia coli [facility] Automated erythrocytes count in urine sediment (number/area)Ordered By: Dalton Ceja on 02-03-2022 RBC Auto (Urine sed) [#/Area] 0-1 [HPF] 0-4 [facility] Automated leukocytes count i n urine sediment (number/area)Ordered By: Dalton Ceja on 02-03-2022 WBC Auto (Urine sed) [#/Area] Innumerable [HPF] 0-4 [facility] Automated urine hyaline cast s count (number/volume)Ordered By: Dalton Ceja on 02-03-2022 Hyaline casts Auto (U) [#/Vol] None seen [LPF] 0-1 [facility] Basophils Auto (Bld) [#/Vol] Ordered By: Dalton Ceja on 02-03-2022 Basophils (Bld) [#/Vol] 0.0 10*3/uL 0.0-0.2 [facility] Basophils/100 WBC Auto (Bld) Ordered By: Dalton Ceja on 02-03-2022 Basophils/100 WBC (Bld) 0.5 % . [facility] Bilirubin Test strip Ql (U)O rdered By: Dalton Ceja on 02-03-2022 Bilirubin Ql (U) Negative Negative [facility] Body fluid albumin measureme nt (mass/volume)Ordered By: Dalton Ceja on 02-03-2022 Albumin (Body fld) [Mass/Vol] 3.7 g/dL 3.2-5.5 [facility] Casts typing in urine sedime nt by light microscopyOrdered By: Dalton Ceja on 02-03-2022 Casts LM Nom (Urine sed) None seen [LPF] None Seen [facility] Color Auto (U)Ordered By: Ad Ceja on 02-03-2022 Color (U) Yellow Yellow [facility] Creatinine and Glomerular fi ltration rate.predicted panel (S/P/Bld)Ordered By: Dalton Ceja on 02-03-2022 Creatinine [Mass/Vol] 0.78 mg/dL 0.44-1.03 [facility] Direct bilirubin measurement Ordered By: Dalton Ceja on 02-03-2022 Bilirubin.direct [Mass/Vol] 0.1 mg/dL 0.0-0.4 [facility] Eosinophils Auto (Bld) [#/Vo l]Ordered By: Dalton Ceja on 02-03-2022 Eosinophils (Bld) [#/Vol] 0.1 10*3/uL 0.0-0.45 [facility] Eosinophils/100 WBC Auto (Bl d)Ordered By: Dalton Ceja on 02-03-2022 Eosinophils/100 WBC (Bld) 1.7 % . [facility] Erythrocyte distribution wid th Auto (RBC) [Ratio]Ordered By: Dalton Ceja on 02-03-2022 Erythrocyte distribution width (RBC) [Ratio] 13.4 % 11.9-15.3 [facility] Estimated glomerular filtrat ion rate (GFR) non- AmericanOrdered By: Dalton Ceja on 02-03-2022 GFR/1.73 sq M.predicted among non-blacks MDRD (S/P/Bld) [Vol rate/Area] > 60 mL/Min [facility] Globulin Calc (S) [Mass/Vol] Ordered By: Dalton Ceja on 02-03-2022 Globulin (S) [Mass/Vol] 3.4 g/dL [facility] HCG ( test) IA.rapi d Ql (U)Ordered By: Dalton Ceja on 02-03-2022 HCG ( test) Ql (U) Negative [facility] Hematocrit Auto (Bld) [Volum e fraction]Ordered By: Dalton Ceja on 02-03-2022 Hematocrit (Bld) [Volume fraction] 43.8 % 34.0-46.4 [facility] Hemoglobin [Mass/volume] in BloodOrdered By: Dalton Ceja on 02-03-2022 Hemoglobin (Bld) [Mass/Vol] 14.5 g/dL 11.8-15.4 [facility] Ketones Auto test strip (U) [Mass/Vol]Ordered By: Dalton Ceja on 02-03-2022 Ketones (U) [Mass/Vol] Negative Negative [facility] Laboratory - Chemistry and C hemistry - challengeOrdered By: Dalton Ceja on 02-03-2022 Lipase [Catalytic activity/Vol] 30.0 U/L 22-51 [facility] Laboratory - CoagulationOrde red By: Dalton Ceja on 02-03-2022 PT Coag (PPP) [Time] 11.9 s 9.0-12.9 [facility] Laboratory - Hematology and Cell countsOrdered By: Dalton Ceja on 02-03-2022 Nucleated RBC/100 WBC (Bld) [Ratio] 0.1 % 0-0.5 [facility] Leukocytes [#/volume] in Blo od by Automated countOrdered By: Dalton Ceja on 02-03-2022 WBC (Bld) [#/Vol] 8.6 10*3/uL 4.5-11.0 [facility] Lymphocytes Auto (Bld) [#/Vo l]Ordered By: Dalton Ceja on 02-03-2022 Lymphocytes (Bld) [#/Vol] 2.6 10*3/uL 1.00-4.8 [facility] Lymphocytes/100 WBC Auto (Bl d)Ordered By: Dalton Ceja on 02-03-2022 Lymphocytes/100 WBC (Bld) 30.4 % . [facility] MCH Auto (RBC) [Entitic mass ]Ordered By: Dalton Ceja on 02-03-2022 MCH (RBC) [Entitic mass] 31.4 pg 24.7-34.3 [facility] MCHC Auto (RBC) [Mass/Vol]Or dered By: Dalton Ceja on 02-03-2022 MCHC (RBC) [Mass/Vol] 33.1 g/dL 32.0-35.0 [facility] MCV Auto (RBC) [Entitic vol] Ordered By: Dalton Ceja on 02-03-2022 MCV (RBC) [Entitic vol] 94.9 fL 80-100 [facility] Monocytes Auto (Bld) [#/Vol] Ordered By: Dalton Ceja on 02-03-2022 Monocytes (Bld) [#/Vol] 0.6 10*3/uL 0.0-0.8 [facility] Monocytes/100 WBC Auto (Bld) Ordered By: Dalton Ceja on 02-03-2022 Monocytes/100 WBC (Bld) 7.4 % . [facility] Neutrophils Auto (Bld) [#/Vo l]Ordered By: Dalton Ceja on 02-03-2022 Neutrophils (Bld) [#/Vol] 5.1 10*3/uL 1.8-7.7 [facility] Neutrophils/100 WBC Auto (Bl d)Ordered By: Dalton Ceja on 02-03-2022 Neutrophils/100 WBC (Bld) 60.0 % . [facility] Nitrite Test strip Ql (U)Ord ered By: Dalton Ceja on 02-03-2022 Nitrite Ql (U) Positive Negative [facility] No Panel InformationOrdered By: Dalton Ceja on 02-03-2022 Estimated GFR () > 60 mL/Min [facility] Comment on above: GFR estimated refere nce range: According to KDOQI guidelines, <60 ml/min/1.73m2 is sufficient to diagnose a patient with chronic kidney disease. Pharmacy Creatinine Clearance (Chem 111.62 [facility] Platelet mean volume Auto (B ld) [Entitic vol]Ordered By: Dalton Ceja on 02-03-2022 Platelet mean volume (Bld) [Entitic vol] 9.6 fL 6.3-10.7 [facility] Platelet poor plasma interna tional normalized ratio (INR) by coagulation assay (relatOrdered By: Dalton Ceja on 02-03-2022 INR Coag (PPP) [Relative time] 1.1 {INR} [facility] Comment on above: INR Therapeutic Rang e [...] 02-03-2022 Platelets (Bld) [#/Vol] 269 10*3/uL 150-450 [facility] Protein Auto test strip (U) [Mass/Vol]Ordered By: Dalton Ceja on 02-03-2022 Protein (U) [Mass/Vol] 100 mg/dL Negative [facility] Protein [Mass/volume] in Ser um or PlasmaOrdered By: Dalton Ceja on 02-03-2022 Protein [Mass/Vol] 7.1 g/dL 6.1-7.9 [facility] RBC Auto (Bld) [#/Vol]Ordere d By: Dalton Ceja on 02-03-2022 RBC (Bld) [#/Vol] 4.62 10*6/uL 3.60-5.00 [facility] Serum or plasma alanine cardoso otransferase measurement without P-5'-P (enzymatic activiOrdered By: Dalton Ceja on 02-03-2022 ALT No additional P-5'-P [Catalytic activity/Vol] 74 U/L 1060 [facility] Serum or plasma albumin/glob ulin mass ratioOrdered By: Dalton Ceja on 02-03-2022 Albumin/Globulin [Mass ratio] 1.1 {ratio} [facility] Serum or plasma alkaline sintia sphatase measurement (enzymatic activity/volume)Ordered By: Dalton Ceja on 02-03-2022 ALP [Catalytic activity/Vol] 78 U/L 32-92 [facility] Serum or plasma anion gap de terminationOrdered By: Dalton Ceja on 02-03-2022 Anion gap [Moles/Vol] 14.0 mmol/L 6.0-15.0 [facility] Serum or plasma aspartate am inotransferase measurement (enzymatic activity/volume)Ordered By: Dalton Ceja on 02-03-2022 AST [Catalytic activity/Vol] 54 U/L 10 [facility] Serum or plasma calcium skyla urement (mass/volume)Ordered By: Dalton Ceja on 02-03-2022 Calcium [Mass/Vol] 8.9 mg/dL 8.2-10.2 [facility] Serum or plasma chloride florin surement (moles/volume)Ordered By: Dalton Ceja on 02-03-2022 Chloride [Moles/Vol] 109 mmol/L 95-114 [facility] Serum or plasma glucose skyla urement (mass/volume)Ordered By: Dalton Ceja on 02-03-2022 Glucose [Mass/Vol] 107 mg/dL 70-100 [facility] Comment on above: ADA recommended refe rence rangeRandom Glucose Reference Range is dependent on time and content of last meal. Glucose of more than 200 mg/dL in a nonstressed, ambulatory subject supports the diagnosis of Diabetes Mellitus. Serum or plasma non-glucuron idated bilirubin measurement (mass/volume)Ordered By: Dalton Ceja on 02-03-2022 Bilirubin.indirect [Mass/Vol] 0.3 mg/dL [facility] Serum or plasma potassium me asurement (moles/volume)Ordered By: Dalton Ceja on 02-03-2022 Potassium [Moles/Vol] 3.6 mmol/L 3.5-5.1 [facility] Serum or plasma sodium measu rement (moles/volume)Ordered By: Dalton Ceja on 02-03-2022 Sodium [Moles/Vol] 137 mmol/L 136-146 [facility] Serum or plasma total biliru bin measurement (mass/volume)Ordered By: Dalton Ceja on 02-03-2022 Bilirubin [Mass/Vol] 0.4 mg/dL 0.3-1.2 [facility] Serum or plasma total carbon dioxide measurement (moles/volume)Ordered By: Dalton Ceja on 02-03-2022 CO2 [Moles/Vol] 17.6 mmol/L 22.0-30.0 [facility] Serum or plasma urea nitroge n measurement (mass/volume)Ordered By: Dalton Ceja on 02-03-2022 Urea nitrogen [Mass/Vol] 15 mg/dL 9-23 [facility] Specific gravity Auto test s trip (U) [Rel density]Ordered By: Dalton Ceja on 02-03-2022 Specific gravity (U) [Rel density] 1.020 1.001-1.030 [facility] Squamous epithelial cells de tection in urine sediment by light microscopyOrdered By: Dalton Ceja on 02-03-2022 Epithelial cells.squamous LM Ql (Urine sed) 3-4 [HPF] 0-2 [facility] Urine bacteria detection by automated methodOrdered By: Dalton Ceja on 02-03-2022 Bacteria Auto Ql (U) 4+ None Seen [facility] Urine clarity by refractomet ry automatedOrdered By: Dalton Ceja on 02-03-2022 Clarity Refractometry automated (U) Cloudy Clear [facility] Urine culture routineOrdered By: Dalton Ceja on 02-03-2022 Bacteria identified Cx Nom (U) Escherichia coli [facility] Urine glucose measurement by automated test strip (mass/volume)Ordered By: Dalton Ceja on 02-03-2022 Glucose Auto test strip (U) [Mass/Vol] Normal mg/dL Normal [facility] Urine hemoglobin detection b y automated test stripOrdered By: Dalton Ceja on 02-03-2022 Hemoglobin Auto test strip Ql (U) 3+ Negative [facility] Urine leukocyte esterase det ection by automated test stripOrdered By: Dalton Ceja on 02-03-2022 Leukocyte esterase Auto test strip Ql (U) 4+ Negative [facility] Urobilinogen Auto test strip (U) [Mass/Vol]Ordered By: Dalton Ceja on 02-03-2022 Urobilinogen (U) [Mass/Vol] Normal mg/dL Normal [facility] pH Auto test strip (U)Ordere d By: Dalton Ceja on 02-03-2022 pH (U) 7.0 [pH] 5.0-9.0 [facility] Activated partial thrombopla stin time (aPTT) in platelet poor plasma by coagulation aOrdered By: Berto Villasenor on 11-13-2021 aPTT Coag (PPP) [Time] 31.1 s 25.1-36.5 [facility] Albumin [Mass/volume] in Ser um or PlasmaOrdered By: Berto Villasenor on 11-13-2021 Albumin [Mass/Vol] 3.5 g/dL 3.2-5.5 [facility] Basophils Auto (Bld) [#/Vol] Ordered By: Berto Villasenor on 11-13-2021 Basophils (Bld) [#/Vol] 0.0 10*3/uL 0.0-0.2 [facility] Basophils/100 WBC Auto (Bld) Ordered By: Berto Villasenor on 11-13-2021 Basophils/100 WBC (Bld) 0.5 % . [facility] Blood hemoglobin measurement (mass/volume)Ordered By: Berto Villasenor on 11-13-2021 Hemoglobin (Bld) [Mass/Vol] 14.8 g/dL 11.8-15.4 [facility] Blood leukocytes automated c ount (number/volume)Ordered By: Berto Villasenor on 11-13-2021 WBC (Bld) [#/Vol] 7.8 10*3/uL 4.5-11.0 [facility] Creatinine and Glomerular fi ltration rate.predicted panel (S/P/Bld)Ordered By: Berto Villasenor on 11-13-2021 Creatinine [Mass/Vol] 0.92 mg/dL 0.44-1.03 [facility] Direct bilirubin measurement Ordered By: Berto Villasenor on 11-13-2021 Bilirubin.direct [Mass/Vol] mg/dL 0.0-0.4 [facility] Eosinophils Auto (Bld) [#/Vo l]Ordered By: Berto Villasenor on 11-13-2021 Eosinophils (Bld) [#/Vol] 0.2 10*3/uL 0.0-0.45 [facility] Eosinophils/100 WBC Auto (Bl d)Ordered By: Berto Villasenor on 11-13-2021 Eosinophils/100 WBC (Bld) 2.5 % . [facility] Erythrocyte distribution wid th Auto (RBC) [Ratio]Ordered By: Berto Villasenor on 11-13-2021 Erythrocyte distribution width (RBC) [Ratio] 13.6 % 11.9-15.3 [facility] Estimated glomerular filtrat ion rate (GFR) non- AmericanOrdered By: Berto Villasenor on 11-13-2021 GFR/1.73 sq M.predicted among non-blacks MDRD (S/P/Bld) [Vol rate/Area] > 60 mL/Min [facility] Globulin Calc (S) [Mass/Vol] Ordered By: Berto Villasenor on 11-13-2021 Globulin (S) [Mass/Vol] 3.6 g/dL [facility] Hematocrit Auto (Bld) [Volum e fraction]Ordered By: Berto Villasenor on 11-13-2021 Hematocrit (Bld) [Volume fraction] 45.1 % 34.0-46.4 [facility] Laboratory - Chemistry and C hemistry - challengeOrdered By: Berto Villasenor on 11-13-2021 Lipase [Catalytic activity/Vol] 33.0 U/L 22-51 [facility] Laboratory - CoagulationOrde red By: Berto Villasenor on 11-13-2021 PT Coag (PPP) [Time] 11.7 s 9.0-12.9 [facility] Laboratory - Hematology and Cell countsOrdered By: Berto Villasenor on 11-13-2021 Nucleated RBC/100 WBC (Bld) [Ratio] 0.1 % 0-0.5 [facility] Lactate dehydrogenase measur ement (enzymatic activity/volume)Ordered By: Berto Villasenor on 11-13-2021 LDH (Unsp spec) [Catalytic activity/Vol] 154 U/L 45-190 [facility] Lymphocytes Auto (Bld) [#/Vo l]Ordered By: Berto Villasenor on 11-13-2021 Lymphocytes (Bld) [#/Vol] 2.5 10*3/uL 1.00-4.8 [facility] Lymphocytes/100 WBC Auto (Bl d)Ordered By: Berto iVllasenor on 11-13-2021 Lymphocytes/100 WBC (Bld) 31.5 % . [facility] MCH Auto (RBC) [Entitic mass ]Ordered By: Berto Villasenor on 11-13-2021 MCH (RBC) [Entitic mass] 30.8 pg 24.7-34.3 [facility] MCHC Auto (RBC) [Mass/Vol]Or dered By: Berto Villasenor on 11-13-2021 MCHC (RBC) [Mass/Vol] 32.8 g/dL 32.0-35.0 [facility] MCV Auto (RBC) [Entitic vol] Ordered By: Berto Villasenor on 11-13-2021 MCV (RBC) [Entitic vol] 94.1 fL 80-100 [facility] Monocyte %Ordered By: Berto Villasenor on 11-13-2021 Monocyte % 27 umol/L 11-35 [facility] Monocytes Auto (Bld) [#/Vol] Ordered By: Berto Villasenor on 11-13-2021 Monocytes (Bld) [#/Vol] 0.5 10*3/uL 0.0-0.8 [facility] Monocytes/100 WBC Auto (Bld) Ordered By: Berto Villasenor on 11-13-2021 Monocytes/100 WBC (Bld) 6.5 % . [facility] Neutrophils Auto (Bld) [#/Vo l]Ordered By: Berto Villasenor on 11-13-2021 Neutrophils (Bld) [#/Vol] 4.6 10*3/uL 1.8-7.7 [facility] Neutrophils/100 WBC Auto (Bl d)Ordered By: Berto Villasenor on 11-13-2021 Neutrophils/100 WBC (Bld) 59.0 % . [facility] No Panel InformationOrdered By: Berto Villasenor on 11-13-2021 Estimated GFR () > 60 mL/Min [facility] Comment on above: GFR estimated refere nce range: According to KDOQI guidelines, <60 ml/min/1.73m2 is sufficient to diagnose a patient with chronic kidney disease. Pharmacy Creatinine Clearance (Chem 92.37 [facility] Platelet mean volume Auto (B ld) [Entitic vol]Ordered By: Berto Villasenor on 11-13-2021 Platelet mean volume (Bld) [Entitic vol] 9.2 fL 6.3-10.7 [facility] Platelet poor plasma interna tional normalized ratio (INR) by coagulation assay (relatOrdered By: Berto Villasenor on 11-13-2021 INR Coag (PPP) [Relative time] 1.0 {INR} [facility] Comment on above: INR Therapeutic Rang e [...] 11-13-2021 Platelets (Bld) [#/Vol] 281 10*3/uL 150-450 [facility] Protein [Mass/volume] in Ser um or PlasmaOrdered By: Berto Villasenor on 11-13-2021 Protein [Mass/Vol] 7.1 g/dL 6.1-7.9 [facility] RBC Auto (Bld) [#/Vol]Ordere d By: Berto Villasenor on 11-13-2021 RBC (Bld) [#/Vol] 4.79 10*6/uL 3.60-5.00 [facility] Serum or plasma alanine cardoso otransferase measurement without P-5'-P (enzymatic activiOrdered By: Berto Villasenor on 11-13-2021 ALT No additional P-5'-P [Catalytic activity/Vol] 96 U/L 10-60 [facility] Serum or plasma albumin/glob ulin mass ratioOrdered By: Berto Villasenor on 11-13-2021 Albumin/Globulin [Mass ratio] 1.0 {ratio} [facility] Serum or plasma alkaline sintia sphatase measurement (enzymatic activity/volume)Ordered By: Berto Villasenor on 11-13-2021 ALP [Catalytic activity/Vol] 87 U/L 32-92 [facility] Serum or plasma aspartate am inotransferase measurement (enzymatic activity/volume)Ordered By: Berto Villasenor on 11-13-2021 AST [Catalytic activity/Vol] 64 U/L 10-42 [facility] Serum or plasma calcium skyla urement (mass/volume)Ordered By: Berto Villasenor on 11-13-2021 Calcium [Mass/Vol] 9.0 mg/dL 8.2-10.2 [facility] Serum or plasma chloride florin surement (moles/volume)Ordered By: Berto Villasenor on 11-13-2021 Chloride [Moles/Vol] 101 mmol/L 95-114 [facility] Serum or plasma glucose skyla urement (mass/volume)Ordered By: Berto Villasenor on 11-13-2021 Glucose [Mass/Vol] 96 mg/dL 70-100 [facility] Comment on above: ADA recommended refe [...] Berto Villasenor on 11-13-2021 Bilirubin.indirect [Mass/Vol] TNP [facility] Comment on above: Test not performed Serum or plasma potassium me asurement (moles/volume)Ordered By: Berto Villasenor on 11-13-2021 Potassium [Moles/Vol] 4.0 mmol/L 3.5-5.1 [facility] Serum or plasma sodium measu rement (moles/volume)Ordered By: Berto Villasenor on 11-13-2021 Sodium [Moles/Vol] 135 mmol/L 136-146 [facility] Serum or plasma total biliru bin measurement (mass/volume)Ordered By: Berto Villasenor on 11-13-2021 Bilirubin [Mass/Vol] 0.4 mg/dL 0.3-1.2 [facility] Serum or plasma total carbon dioxide measurement (moles/volume)Ordered By: Berto Villasenor on 11-13-2021 CO2 [Moles/Vol] 24.3 mmol/L 22.0-30.0 [facility] Serum or plasma urea nitroge n measurement (mass/volume)Ordered By: Berto Villasenor on 11-13-2021 Urea nitrogen [Mass/Vol] 14 mg/dL 12-15 [facility] Basophils Auto (Bld) [#/Vol] Ordered By: Felice Veliz on 10-30-2021 Basophils (Bld) [#/Vol] 0.1 10*3/uL 0.0-0.2 [facility] Basophils/100 WBC Auto (Bld) Ordered By: Felice Veliz on 10-30-2021 Basophils/100 WBC (Bld) 0.8 % . [facility] Blood hemoglobin measurement (mass/volume)Ordered By: Felice Veliz on 10-30-2021 Hemoglobin (Bld) [Mass/Vol] 14.9 g/dL 11.8-15.4 [facility] Blood leukocytes automated c ount (number/volume)Ordered By: Felice Veliz on 10-30-2021 WBC (Bld) [#/Vol] 8.2 10*3/uL 4.5-11.0 [facility] Body fluid albumin measureme nt (mass/volume)Ordered By: Felice Veliz on 10-30-2021 Albumin (Body fld) [Mass/Vol] 3.5 g/dL 3.2-5.5 [facility] Creatinine and Glomerular fi ltration rate.predicted panel (S/P/Bld)Ordered By: Felice Veliz on 10-30-2021 Creatinine [Mass/Vol] 0.74 mg/dL 0.44-1.03 [facility] Diagnostic impression [Inter pretation] in Specimen NarrativeOrdered By: Felice Veliz on 10-30-2021 Diagnostic impression Molgen Sky (Unsp spec) [Interp] See comment . [facility] Comment on above: Positive HCV antibod y screen with the presence of HCV RNA is consistent with active infection. Performed at: [facility] [id number] Hydrochloric Acid Operator: Gavin Mott PhD, Phone: [phone] Performed at: [address] [id number] Hydrochloric Acid Operator: Brianda Durant MD, Phone: [phone] Positive HCV antibod y screen with the presence of HCV RNAis consistent with active infection.Performed at: [facility] [id number] Director: Gavin Mott PhD, Phone: [phone] at: [address] [id number] Director: Brianda Durant MD, Phone: [phone] Eosinophils Auto (Bld) [#/Vo l]Ordered By: Felice Veliz on 10-30-2021 Eosinophils (Bld) [#/Vol] 0.1 10*3/uL 0.0-0.45 [facility] Eosinophils/100 WBC Auto (Bl d)Ordered By: Felice Veliz on 10-30-2021 Eosinophils/100 WBC (Bld) 1.4 % . [facility] Erythrocyte distribution wid th Auto (RBC) [Ratio]Ordered By: Felice Veliz on 10-30-2021 Erythrocyte distribution width (RBC) [Ratio] 13.4 % 11.9-15.3 [facility] Estimated glomerular filtrat ion rate (GFR) non- AmericanOrdered By: Felice Veliz on 10-30-2021 GFR/1.73 sq M.predicted among non-blacks MDRD (S/P/Bld) [Vol rate/Area] > 60 mL/Min [facility] Globulin Calc (S) [Mass/Vol] Ordered By: Felice Veliz on 10-30-2021 Globulin (S) [Mass/Vol] 3.5 g/dL [facility] Hematocrit Auto (Bld) [Volum e fraction]Ordered By: Felice Veliz on 10-30-2021 Hematocrit (Bld) [Volume fraction] 45.0 % 34.0-46.4 [facility] Hepatitis B virus surface Ag [Presence] in Serum or Plasma by ImmunoassayOrdered By: Felice Veliz on 10-30-2021 HBV surface Ag IA Ql Negative Negative [facility] Hepatitis C virus RNA [Units /volume] (viral load) in Serum or Plasma by LINDSEY with probOrdered By: Felice Veliz on 10-30-2021 HCV RNA LINDSEY+probe Qn [id number] [IU]/mL . [facility] Hepatitis C virus RNA [log u nits/volume] (viral load) in Serum or Plasma by LINDSEY withOrdered By: Felice Veliz on 10-30-2021 HCV RNA LINDSEY+probe [Log units/Vol] 7.124 . [facility] Comment on above: Result Units: log10 IU/mL Laboratory - Chemistry and C hemistry - challengeOrdered By: Felice Veliz on 10-30-2021 Amylase [Catalytic activity/Vol] 77 U/L 7-64 [facility] Laboratory - Hematology and Cell countsOrdered By: Felice Veliz on 10-30-2021 Nucleated RBC/100 WBC (Bld) [Ratio] 0.0 % 0-0.5 [facility] Lymphocytes Auto (Bld) [#/Vo l]Ordered By: Felice Veliz on 10-30-2021 Lymphocytes (Bld) [#/Vol] 1.9 10*3/uL 1.00-4.8 [facility] Lymphocytes/100 WBC Auto (Bl d)Ordered By: Felice Veliz on 10-30-2021 Lymphocytes/100 WBC (Bld) 23.9 % . [facility] MCH Auto (RBC) [Entitic mass ]Ordered By: Felice Veliz on 10-30-2021 MCH (RBC) [Entitic mass] 31.0 pg 24.7-34.3 [facility] MCHC Auto (RBC) [Mass/Vol]Or dered By: Felice Veliz on 10-30-2021 MCHC (RBC) [Mass/Vol] 33.1 g/dL 32.0-35.0 [facility] MCV Auto (RBC) [Entitic vol] Ordered By: Felice Veliz on 10-30-2021 MCV (RBC) [Entitic vol] 93.5 fL 80-100 [facility] Monocytes Auto (Bld) [#/Vol] Ordered By: Felice Veliz on 10-30-2021 Monocytes (Bld) [#/Vol] 0.7 10*3/uL 0.0-0.8 [facility] Monocytes/100 WBC Auto (Bld) Ordered By: Felice Veliz on 10-30-2021 Monocytes/100 WBC (Bld) 8.5 % . [facility] Neutrophils Auto (Bld) [#/Vo l]Ordered By: Felice Veliz on 10-30-2021 Neutrophils (Bld) [#/Vol] 5.3 10*3/uL 1.8-7.7 [facility] Neutrophils/100 WBC Auto (Bl d)Ordered By: Felice Veliz on 10-30-2021 Neutrophils/100 WBC (Bld) 65.4 % . [facility] No Panel InformationOrdered By: Felice Veliz on 10-30-2021 Estimated GFR () > 60 mL/Min [facility] Comment on above: GFR estimated refere nce range: According to KDOQI guidelines, <60 ml/min/1.73m2 is sufficient to diagnose a patient with chronic kidney disease. Hepatitis A IgM Antibody Negative Negative [facility] Hepatitis B Core IgM Antibody Negative Negative [facility] Hepatitis C RNA Qnt (PCR) Test Info See comment . [facility] Comment on above: The quantitative ran ge of this assay is 15 IU/mL to 100 million IU/mL. The quantitative ran ge of this assay is 15 IU/mL to 100million IU/mL. Pharmacy Creatinine Clearance (Chem N/A [facility] Platelet mean volume Auto (B ld) [Entitic vol]Ordered By: Felice Veliz on 10-30-2021 Platelet mean volume (Bld) [Entitic vol] 9.6 fL 6.3-10.7 [facility] Platelets Auto (Bld) [#/Vol] Ordered By: Felice Veliz on 10-30-2021 Platelets (Bld) [#/Vol] 251 10*3/uL 150-450 [facility] Protein [Mass/volume] in Ser um or PlasmaOrdered By: Felice Veliz on 10-30-2021 Protein [Mass/Vol] 7.0 g/dL 6.1-7.9 [facility] RBC Auto (Bld) [#/Vol]Ordere d By: Felice Veliz on 10-30-2021 RBC (Bld) [#/Vol] 4.81 10*6/uL 3.60-5.00 [facility] Serum nuclear antibody titer Ordered By: Felice Veliz on 10-30-2021 Nuclear Ab (S) [Titer] Negative . [facility] Comment on above: Negative <1:80 [...] and/or systemic lupus erythematosus (SLE). Performed at: [address] [id number] Hydrochloric Acid Operator: Gavin Mott PhD, Phone: [phone] Negative <1:80 Ladidaphne tulio 1:80 Positive >1:80ICAP nomenclature: [id number] more information about Hep-2 cell patterns useANApatterns.org, the official website for theInternational Consensus on Antinuclear Antibody (BEATRIZ)Patterns (ICAP).Speckled cytoplasmic fluorescence is present. Theantibodies noted in this pattern may be associated with,but not restricted to, primary biliary cirrhosis (PBC),polymyositis and dermatomyositis (PM/DM), and/or systemiclupus erythematosus (SLE).Performed at: [facility] [place] [id number] [place], [place] [id number] Director: Gavin Mott PhD, Phone: [phone] Serum or plasma alanine cardoso otransferase measurement without P-5'-P (enzymatic activiOrdered By: Felice Veliz on 10-30-2021 ALT No additional P-5'-P [Catalytic activity/Vol] 118 U/L 10-60 [facility] Serum or plasma albumin/glob ulin mass ratioOrdered By: Felice Veliz on 10-30-2021 Albumin/Globulin [Mass ratio] 1.0 {ratio} [facility] Serum or plasma alkaline sintia sphatase measurement (enzymatic activity/volume)Ordered By: Felice Veliz on 10-30-2021 ALP [Catalytic activity/Vol] 79 U/L 32-92 [facility] Serum or plasma aspartate am inotransferase measurement (enzymatic activity/volume)Ordered By: Felice Veliz on 10-30-2021 AST [Catalytic activity/Vol] 95 U/L 10-42 [facility] Serum or plasma calcium skyla urement (mass/volume)Ordered By: Felice Veliz on 10-30-2021 Calcium [Mass/Vol] 8.8 mg/dL 8.2-10.2 [facility] Serum or plasma chloride florin surement (moles/volume)Ordered By: Felice Veliz on 10-30-2021 Chloride [Moles/Vol] 101 mmol/L 95-114 [facility] Serum or plasma glucose skyla urement (mass/volume)Ordered By: Felice Veliz on 08-08-2022 Glucose [Mass/Vol] 100 mg/dL 70-100 [facility] Comment on above: ADA recommended refe [...] IA [Rel units/Vol] >11.0 s/co ratio 0.0-0.9 [facility] Serum or plasma potassium me asurement (moles/volume)Ordered By: Felice Veliz on 10-30-2021 Potassium [Moles/Vol] 4.2 mmol/L 3.5-5.1 [facility] Serum or plasma sodium measu rement (moles/volume)Ordered By: Felice Veliz on 10-30-2021 Sodium [Moles/Vol] 136 mmol/L 136-146 [facility] Serum or plasma total biliru bin measurement (mass/volume)Ordered By: Felice Veliz on 10-30-2021 Bilirubin [Mass/Vol] 0.3 mg/dL 0.3-1.2 [facility] Serum or plasma total carbon dioxide measurement (moles/volume)Ordered By: Felice Veliz on 10-30-2021 CO2 [Moles/Vol] 22.6 mmol/L 22.0-30.0 [facility] Serum or plasma urea nitroge n measurement (mass/volume)Ordered By: Felice Veliz on 10-30-2021 Urea nitrogen [Mass/Vol] 11 mg/dL 9- [facility] CBC AUTO DIFFon 10-15-2021 BASO # 0.0 103/ul Normal 0.0-0.1 [facility] Comment on above: Performed By: #### C BC #### [facility] [address] [id number] [address] Nolan Biggs Basophils/100 WBC (Bld) 0.2 % Normal 0.2-2.0 [facility] Comment on above: Performed By: #### C BC #### [facility] [address] [place] [address] Dr. Nolan Biggs EO # 0.1 103/ul Normal 0.0-0.7 [facility] Comment on above: Performed By: #### C BC #### [facility] [address] [place] [address] Dr. Nolan Biggs Eosinophils/100 WBC (Bld) 2.0 % Normal 0.9-7.0 [facility] Comment on above: Performed By: #### C BC #### [facility] [address] [place] [address] Dr. Nolan Biggs Erythrocyte distribution width (RBC) [Ratio] 12.7 % Normal 11.0-15.0 [facility] Comment on above: Performed By: #### C BC #### [facility] [address] [place] [address] Dr. Nolan Biggs Hematocrit (Bld) [Volume fraction] 43.7 % Normal 36.0-48.0 [facility] Comment on above: Performed By: #### C BC #### [facility] [address] [place] [address] Dr. Nolan Biggs Hemoglobin (Bld) [Mass/Vol] 14.8 g/dL Normal 12.0-16.0 [facility] Comment on above: Performed By: #### C BC #### [facility] [address] [place] [address] Dr. Nolan Biggs IG # 0.02 10e3/ul Normal 0.00-0.03 [facility] Comment on above: Performed By: #### C BC #### [facility] [address] [place] [address] Dr. Nolan Biggs IG % 0.3 % Normal 0.0-0.5 [facility] Comment on above: Performed By: #### C BC #### [facility] [address] [place] [address] Dr. Nolan Biggs LYMPH # 0.4 103/ul Critically low 1.2-3.8 [facility] Comment on above: Performed By: #### C BC #### [facility] [address] [place] [address] Dr. Nolan Biggs Lymphocytes/100 WBC (Bld) 7.0 % Critically low 20.5-60.0 [facility] Comment on above: Performed By: #### C BC #### [facility] [address] [place] [address] Dr. Nolan Biggs MANUAL DIFF REQ NO Normal [facility] Comment on above: Performed By: #### C BC #### [facility] [address] [place] [address] Dr. Nolan Biggs MCH (RBC) [Entitic mass] 31.3 pg Normal 26.7-34.0 [facility] Comment on above: Performed By: #### C BC #### [facility] [address] [place] [address] Dr. Nolan Biggs MCHC (RBC) [Mass/Vol] 33.9 g/dL Normal 29.9-35.2 [facility] Comment on above: Performed By: #### C BC #### [facility] [address] [place] [address] Dr. Nolan Biggs MCV (RBC) [Entitic vol] 92.4 fL Normal 81.0-99.0 [facility] Comment on above: Performed By: #### C BC #### [facility] [address] [place] [address] Dr. Nolan Biggs MONO # 0.3 103/ul Normal 0.3-0.8 [facility] Comment on above: Performed By: #### C BC #### [facility] [address] [place] [address] Dr. Nolan Biggs Monocytes/100 WBC (Bld) 5.7 % Normal 1.7-12.0 [facility] Comment on above: Performed By: #### C BC #### [facility] [address] [place] [address] Dr. Nolan Biggs NEUT # 5.1 103/ul Normal 1.4-6.5 [facility] Comment on above: Performed By: #### C BC #### [facility] [address] [place] [address] Dr. Nolan Biggs Neutrophils/100 WBC (Bld) 84.8 % Critically high 43.0-75.0 [facility] Comment on above: Performed By: #### C BC #### [facility] [address] [place] [address] Dr. Nolan Biggs Platelet mean volume (Bld) [Entitic vol] 10.5 fL Normal 9.5-13.5 [facility] Comment on above: Performed By: #### C BC #### [facility] [address] [place] [address] Dr. Nolan Biggs PLT 218 103/ul Normal 150-450 [facility] Comment on above: Performed By: #### C BC #### [facility] [address] [place] [address] Dr. Nolan Biggs RBC 4.73 106/ul Normal 4.20-5.40 [facility] Comment on above: Performed By: #### C BC #### [facility] [address] [place] [address] Dr. Nolan Biggs WBC 6.0 103/ul Normal 4.0-11.0 [facility] Comment on above: Performed By: #### C BC #### [facility] [address] [place] [address] Dr. Nolan Biggs ER URINE PROFILEon 2 Bilirubin Ql (U) Negative Normal NEGATIVE [facility] Comment on above: Performed By: #### E RUR, PREGU #### [facility] [address] [place] [address] Dr. Nolan Biggs Clarity (U) CLEAR Normal CLEAR [facility] Comment on above: Performed By: #### E RUR, PREGU #### [facility] [address] [place] [address] Dr. Nolan Biggs Color (U) YELLOW Normal YELLOW [facility] Comment on above: Performed By: #### E RUR, PREGU #### [facility] [address] [place] [address] Dr. Nolan URBINA A micrscopic examination will be performed if indicated. Normal [facility] Comment on above: Performed By: #### E RUR, PREGU #### [facility] [address] [address] [address] Nolan Biggs Glucose Ql (U) Negative Normal NEGATIVE [facility] Comment on above: Performed By: #### E RUR, PREGU #### [facility] [address] [address] [address] Nolan Biggs Hemoglobin Ql (U) Negative Normal NEGATIVE [facility] Comment on above: Performed By: #### E RUR, PREGU #### [facility] [address] [place] [address] Dr. Nolan Biggs Ketones Ql (U) Negative Normal NEGATIVE [facility] Comment on above: Performed By: #### E RUR, PREGU #### [facility] [address] [place] [address] Dr. Nolan Biggs LEUKOCYTES Negative Normal NEGATIVE [facility] Comment on above: Performed By: #### E RUR, PREGU #### [facility] [address] [place] [address] Dr. Nolan Biggs Nitrite Ql (U) Negative Normal NEGATIVE [facility] Comment on above: Performed By: #### E RUR, PREGU #### [facility] [address] [place] [address] Dr. Nolan Biggs pH (U) 7.0 [pH] Normal 5-9 [facility] Comment on above: Performed By: #### E RUR, PREGU #### [facility] [address] [place] [address] Dr. Nolan Biggs SPEC GRAVITY 1.020 Normal 1.005-<=1.02 5 [facility] Comment on above: Performed By: #### E RUR, PREGU #### [facility] [address] [place] [address] Dr. Nolan Biggs UA PROTEIN TRACE Normal NEGATIVE/ TRACE [facility] Comment on above: Performed By: #### E RUR, PREGU #### [facility] [address] [place] [address] Dr. Nolan Biggs UR MICRO IND NOT INDICATED Normal [facility] Comment on above: Performed By: #### E RUR, PREGU #### [facility] [address] [place] [address] Dr. Nolan Biggs Urobilinogen Qn (U) 1.0 {Jan'U}/dL Normal 0.2 - 1. 0 [facility] Comment on above: Performed By: #### E RUR, PREGU #### [facility] [address] [place] [address] Dr. Nolan Biggs LIPASEon 10-15-2021 Lipase [Catalytic activity/Vol] 56.0 U/L Critically low 73.0-393.0 [facility] Comment on above: Performed By: #### L IPA, CMP #### [facility] [address] [place] [address] Dr. Nolan Biggs URon 10-15-2021 , QUAL Negative Normal NEGATIVE [facility] Comment on above: Performed By: #### E RUR, PREGU #### [facility] [address] [place] [address] Dr. Nolan Biggs PROF 14(COMP METB)on 022 Albumin [Mass/Vol] 3.5 g/dL Normal 3.4-5.0 [facility] Comment on above: Performed By: #### L IPA, CMP #### [facility] [address] [place] [address] Dr. Nolan Biggs Albumin/Globulin [Mass ratio] 0.9 {ratio} Normal [facility] Comment on above: Performed By: #### L IPA, CMP #### [facility] [address] [place] [address] Dr. Nolan Biggs ALP [Catalytic activity/Vol] 78 U/L Normal 46-116 [facility] Comment on above: Performed By: #### L IPA, CMP #### [facility] [address] [place] [address] Dr. Nolan Biggs ALT [Catalytic activity/Vol] 157 U/L Critically high 14-59 [facility] Comment on above: Performed By: #### L IPA, CMP #### [facility] [address] [address] [address] Nolan Biggs Anion gap [Moles/Vol] 11.3 mmol/L Normal [facility] Comment on above: Performed By: #### L IPA, CMP #### [facility] [address] [address] [address] Nolan Biggs AST [Catalytic activity/Vol] 84 U/L Critically high 15-37 [facility] Comment on above: Performed By: #### L IPA, CMP #### [facility] [address] [address] [address] Nolan Biggs Bilirubin [Mass/Vol] 0.5 mg/dL Normal 0.2-1.0 [facility] Comment on above: Performed By: #### L IPA, CMP #### [facility] [address] [address] [address] Nolan Biggs Calcium [Mass/Vol] 8.2 mg/dL Critically low 8.5-10.1 [facility] Comment on above: Performed By: #### L IPA, CMP #### [facility] [address] [place] [address] Dr. Nolan Biggs Chloride [Moles/Vol] 106 mmol/L Normal 98-107 [facility] Comment on above: Performed By: #### L IPA, CMP #### [facility] [address] [address] [address] Nolan Biggs CO2 [Moles/Vol] 23.6 mmol/L Normal 21.0-32.0 [facility] Comment on above: Performed By: #### L IPA, CMP #### [facility] [address] [address] [address] Nolan Biggs Creatinine [Mass/Vol] 0.83 mg/dL Normal 0.55-1.02 [facility] Comment on above: Performed By: #### L IPA, CMP #### [facility] [address] [place] [address] Dr. Nolan Biggs EGFR-AF LATVIAN >60 Normal >=60 [facility] Comment on above: Performed By: #### L IPA, CMP #### [facility] [address] [address] [address] Nolan Biggs EGFR-NON AF LATVIAN >60 Normal >=60 [facility] Comment on above: Performed By: #### L IPA, CMP #### [facility] [address] [address] [address] Nolan Biggs Globulin (S) [Mass/Vol] 4.0 g/dL Normal [facility] Comment on above: Performed By: #### L IPA, CMP #### [facility] [address] [address] [address] Nolan Biggs Glucose [Mass/Vol] 115 mg/dL Critically high 74-106 [facility] Comment on above: Performed By: #### L IPA, CMP #### [facility] [address] [address] [address] Nolan Biggs Potassium [Moles/Vol] 3.9 mmol/L Normal 3.5-5.1 [facility] Comment on above: Performed By: #### L IPA, CMP #### [facility] [address] [address] [address] Nolan Biggs Protein [Mass/Vol] 7.5 g/dL Normal 6.4-8.2 [facility] Comment on above: Performed By: #### L IPA, CMP #### [facility] [address] [address] [address] Nolan Biggs Sodium [Moles/Vol] 137 mmol/L Normal 136-145 [facility] Comment on above: Performed By: #### L IPA, CMP #### [facility] [address] [address] [address] Nolan Biggs Urea nitrogen [Mass/Vol] 13.0 mg/dL Normal 7.0-18.0 [facility] Comment on above: Performed By: #### L IPA, CMP #### [facility] [address] [address] [address] Nolan Biggs Urea nitrogen/Creatinine [Mass ratio] 15.7 mg/mg Normal [facility] Comment on above: Performed By: #### L IPA, CMP #### [facility] [address] [address] [address] Nolan Biggs XR ABD FLAT UP_PA [...] by: PROMISE MCKEON Date: 2021-10-15 12:58 Normal [facility] Serum or plasma potassium me asurement (moles/volume)Ordered By: José Miguel Mcnamara on 10-10-2021 Potassium [Moles/Vol] 3.9 mmol/L 3.5-5.1 [facility] Activated partial thrombopla stin time (aPTT) in platelet poor plasma by coagulation aOrdered By: José Miguel Mcnamara on 10-09-2021 aPTT Coag (PPP) [Time] 24.4 s 25.1-36.5 [facility] Automated erythrocytes count in urine sediment (number/area)Ordered By: PROVIDER TEMP on 10-09-2021 RBC Auto (Urine sed) [#/Area] 1-2 [HPF] 0-4 [facility] Automated leukocytes count i n urine sediment (number/area)Ordered By: PROVIDER TEMP on 10-09-2021 WBC Auto (Urine sed) [#/Area] 0-1 [HPF] 0-4 [facility] Basophils Auto (Bld) [#/Vol] Ordered By: José Miguel Mcnamara on 10-09-2021 Basophils (Bld) [#/Vol] 0.1 10*3/uL 0.0-0.2 [facility] Basophils/100 WBC Auto (Bld) Ordered By: José Miguel Mcnamara on 10-09-2021 Basophils/100 WBC (Bld) 0.7 % . [facility] Bilirubin Test strip Ql (U)O rdered By: MOLLY KURTZ on 10-09-2021 Bilirubin Ql (U) Negative Negative [facility] Blood hemoglobin measurement (mass/volume)Ordered By: José Miguel Mcnamara on 10-09-2021 Hemoglobin (Bld) [Mass/Vol] 14.4 g/dL 11.8-15.4 [facility] Blood leukocytes automated c ount (number/volume)Ordered By: José Miguel Mcnamara on 10-09-2021 WBC (Bld) [#/Vol] 8.3 10*3/uL 4.5-11.0 [facility] Body fluid albumin measureme nt (mass/volume)Ordered By: José Miguel Mcnamara on 10-09-2021 Albumin (Body fld) [Mass/Vol] 3.4 g/dL 3.2-5.5 [facility] Color Auto (U)Ordered By: RICH KURTZ on 10-09-2021 Color (U) Yellow Yellow [facility] Creatinine and Glomerular fi ltration rate.predicted panel (S/P/Bld)Ordered By: José Miguel Mcnamara on 10-09-2021 Creatinine [Mass/Vol] 0.94 mg/dL 0.44-1.03 [facility] Direct bilirubin measurement Ordered By: José Miguel Mcnamara on 10-09-2021 Bilirubin.direct [Mass/Vol] 0.3 mg/dL 0.0-0.4 [facility] Eosinophils Auto (Bld) [#/Vo l]Ordered By: José Miguel Mcnamara on 10-09-2021 Eosinophils (Bld) [#/Vol] 0.3 10*3/uL 0.0-0.45 [facility] Eosinophils/100 WBC Auto (Bl d)Ordered By: José Miguel Mcnamara on 10-09-2021 Eosinophils/100 WBC (Bld) 3.1 % . [facility] Erythrocyte distribution wid th Auto (RBC) [Ratio]Ordered By: José Miguel Mcnamara on 10-09-2021 Erythrocyte distribution width (RBC) [Ratio] 13.2 % 11.9-15.3 [facility] Estimated glomerular filtrat ion rate (GFR) non- AmericanOrdered By: José Miguel Mcnamara on 10-09-2021 GFR/1.73 sq M.predicted among non-blacks MDRD (S/P/Bld) [Vol rate/Area] > 60 mL/Min [facility] Globulin Calc (S) [Mass/Vol] Ordered By: José Miguel Mcnamara on 10-09-2021 Globulin (S) [Mass/Vol] 3.3 g/dL [facility] Hematocrit Auto (Bld) [Volum e fraction]Ordered By: José Miguel Mcnamara on 10-09-2021 Hematocrit (Bld) [Volume fraction] 42.6 % 34.0-46.4 [facility] Ketones Auto test strip (U) [Mass/Vol]Ordered By: PROVIDER TESSIE on 10-09-2021 Ketones (U) [Mass/Vol] Trace Negative Fi [facility] - Chemistry and C hemistry - challengeOrdered By: José Miguel Mcnamara on 10-09-2021 Lipase [Catalytic activity/Vol] 31.0 U/L 22-51 [facility] Laboratory - CoagulationOrde red By: José Miguel Mcnamara on 10-09-2021 PT Coag (PPP) [Time] 11.1 s 9.0-12.9 [facility] - Hematology and Cell countsOrdered By: José Miguel Mcnamara on 10-09-2021 Nucleated RBC/100 WBC (Bld) [Ratio] 0.1 % 0-0.5 [facility] - UrinalysisOrder ed By: PROVIDER TESSIE on 10-09-2021 Hyaline casts LM Ql (Urine sed) 0-8 [LPF] 0-8 [facility] Lymphocytes Auto (Bld) [#/Vo l]Ordered By: José Miguel Mcnamara on 10-09-2021 Lymphocytes (Bld) [#/Vol] 2.6 10*3/uL 1.00-4.8 [facility] Lymphocytes/100 WBC Auto (Bl d)Ordered By: José Miguel Mcnamara on 10-09-2021 Lymphocytes/100 WBC (Bld) 30.9 % . [facility] MCH Auto (RBC) [Entitic mass ]Ordered By: José Miguel Mcnamara on 10-09-2021 MCH (RBC) [Entitic mass] 31.7 pg 24.7-34.3 [facility] MCHC Auto (RBC) [Mass/Vol]Or dered By: José Miguel Mcnamara on 10-09-2021 MCHC (RBC) [Mass/Vol] 33.7 g/dL 32.0-35.0 [facility] MCV Auto (RBC) [Entitic vol] Ordered By: José Miguel Mcnamara on 10-09-2021 MCV (RBC) [Entitic vol] 94.3 fL 80-100 [facility] Monocytes Auto (Bld) [#/Vol] Ordered By: José Miguel Mcnamara on 10-09-2021 Monocytes (Bld) [#/Vol] 0.6 10*3/uL 0.0-0.8 [facility] Monocytes/100 WBC Auto (Bld) Ordered By: José Miguel Mcnamara on 10-09-2021 Monocytes/100 WBC (Bld) 6.6 % . [facility] Neutrophils Auto (Bld) [#/Vo l]Ordered By: José Miguel Mcnamara on 10-09-2021 Neutrophils (Bld) [#/Vol] 4.9 10*3/uL 1.8-7.7 [facility] Neutrophils/100 WBC Auto (Bl d)Ordered By: José Miguel Mcnamara on 10-09-2021 Neutrophils/100 WBC (Bld) 58.7 % . [facility] Nitrite Test strip Ql (U)Ord ered By: MOLLY KURTZ on 10-09-2021 Nitrite Ql (U) Negative Negative [facility] No Panel InformationOrdered By: José Miguel Mcnamara on 10-09-2021 Estimated GFR () > 60 mL/Min [facility] Comment on above: GFR estimated refere nce range: According to KDOQI guidelines, <60 ml/min/1.73m2 is sufficient to diagnose a patient with chronic kidney disease. Pharmacy Creatinine Clearance (Chem 90.41 [facility] Platelet mean volume Auto (B ld) [Entitic vol]Ordered By: José Miguel Mcnamara on 10-09-2021 Platelet mean volume (Bld) [Entitic vol] 9.2 fL 6.3-10.7 [facility] Platelet poor plasma interna tional normalized ratio (INR) by coagulation assay (relatOrdered By: José Miguel Mcnamara on 10-09-2021 INR Coag (PPP) [Relative time] 1.0 {INR} [facility] Comment on above: INR Therapeutic Rang e [...] 10-09-2021 Platelets (Bld) [#/Vol] 233 10*3/uL 150-450 [facility] Protein Auto test strip (U) [Mass/Vol]Ordered By: MOLLY TATE on 10-09-2021 Protein (U) [Mass/Vol] Trace mg/dL Negative [facility] Protein [Mass/volume] in Ser um or PlasmaOrdered By: José Miguel Mcnamara on 10-09-2021 Protein [Mass/Vol] 6.7 g/dL 6.1-7.9 [facility] RBC Auto (Bld) [#/Vol]Ordere d By: José Miguel Mcnamara on 10-09-2021 RBC (Bld) [#/Vol] 4.52 10*6/uL 3.60-5.00 [facility] Serum or plasma alanine cardoso otransferase measurement without P-5'-P (enzymatic activiOrdered By: José Miguel Mcnamara on 10-09-2021 ALT No additional P-5'-P [Catalytic activity/Vol] 101 U/L 10-60 [facility] Serum or plasma albumin/glob ulin mass ratioOrdered By: José Miguel Mcnamara on 10-09-2021 Albumin/Globulin [Mass ratio] 1.0 {ratio} [facility] Serum or plasma alkaline sintia sphatase measurement (enzymatic activity/volume)Ordered By: José Miguel Mcnamara on 10-09-2021 ALP [Catalytic activity/Vol] 79 U/L 32-92 [facility] Serum or plasma aspartate am inotransferase measurement (enzymatic activity/volume)Ordered By: José Miguel Mcnamara on 10-09-2021 AST [Catalytic activity/Vol] 66 U/L 10-42 [facility] Serum or plasma calcium skyla urement (mass/volume)Ordered By: José Miguel Mcnamara on 10-09-2021 Calcium [Mass/Vol] 8.8 mg/dL 8.2-10.2 [facility] Serum or plasma chloride florin surement (moles/volume)Ordered By: José Miguel Mcnamara on 10-09-2021 Chloride [Moles/Vol] 107 mmol/L 95-114 [facility] Serum or plasma glucose skyla urement (mass/volume)Ordered By: José Miguel Mcnamara on 10-09-2021 Glucose [Mass/Vol] 103 mg/dL 70-100 [facility] Comment on above: ADA recommended refe [...] Mcnamara on 10-09-2021 Bilirubin.indirect [Mass/Vol] 0.4 mg/dL [facility] Serum or plasma sodium measu rement (moles/volume)Ordered By: José Miguel Mcnamara on 10-09-2021 Sodium [Moles/Vol] 139 mmol/L 136-146 [facility] Serum or plasma total biliru bin measurement (mass/volume)Ordered By: José Miguel Mcnamara on 10-09-2021 Bilirubin [Mass/Vol] 0.7 mg/dL 0.3-1.2 [facility] Serum or plasma total carbon dioxide measurement (moles/volume)Ordered By: José Miguel Mcnamara on 10-09-2021 CO2 [Moles/Vol] 23.0 mmol/L 22.0-30.0 [facility] Serum or plasma urea nitroge n measurement (mass/volume)Ordered By: José Miguel Mcnamara on 10-09-2021 Urea nitrogen [Mass/Vol] 16 mg/dL 9- [facility] Specific gravity Auto test s trip (U) [Rel density]Ordered By: PROVIDER TEMP on 10-09-2021 Specific gravity (U) [Rel density] 1.038 1.001-1.030 [facility] Squamous epithelial cells de tection in urine sediment by light microscopyOrdered By: PROVIDER TEMP on 10-09-2021 Epithelial cells.squamous LM Ql (Urine sed) 3-4 [HPF] 0-2 [facility] Urine bacteria detection by automated methodOrdered By: PROVIDER TEMP on 10-09-2021 Bacteria Auto Ql (U) 1+ None Seen [facility] Urine clarity by refractomet ry automatedOrdered By: PROVIDER TEMP on 10-09-2021 Clarity Refractometry automated (U) Turbid Clear [facility] Urine glucose measurement by automated test strip (mass/volume)Ordered By: PROVIDER TEMP on 10-09-2021 Glucose Auto test strip (U) [Mass/Vol] Normal mg/dL Normal [facility] Urine hemoglobin detection b y automated test stripOrdered By: PROVIDER TEMP on 10-09-2021 Hemoglobin Auto test strip Ql (U) Negative Negative [facility] Urine leukocyte esterase det ection by automated test stripOrdered By: PROVIDER TEMP on 10-09-2021 Leukocyte esterase Auto test strip Ql (U) Negative Negative [facility] Urobilinogen Auto test strip (U) [Mass/Vol]Ordered By: PROVIDER TEMP on 10-09-2021 Urobilinogen (U) [Mass/Vol] Normal mg/dL Normal [facility] pH Auto test strip (U)Ordere d By: PROVIDER TEMP on 10-09-2021 pH (U) 7.0 [pH] 5.0-9.0 [facility] Basophils Auto (Bld) [#/Vol] Ordered By: Dagoberto Romero on 06-28-2022 Basophils (Bld) [#/Vol] 0.0 10*3/uL 0.0-0.2 [facility] Basophils/100 WBC Auto (Bld) Ordered By: Dagoberto Romero on 09-19-2021 Basophils/100 WBC (Bld) 0.3 % . [facility] Blood hemoglobin measurement (mass/volume)Ordered By: Dagoberto Romero on 09-19-2021 Hemoglobin (Bld) [Mass/Vol] 15.0 g/dL 11.8-15.4 [facility] Blood leukocytes automated c ount (number/volume)Ordered By: Dagoberto Romero on 09-19-2021 WBC (Bld) [#/Vol] 6.9 10*3/uL 4.5-11.0 [facility] Creatinine and Glomerular fi ltration rate.predicted panel (S/P/Bld)Ordered By: Dagoberto Romero on 09-19-2021 Creatinine [Mass/Vol] 0.86 mg/dL 0.44-1.03 [facility] Eosinophils Auto (Bld) [#/Vo l]Ordered By: Dagoberto Romero on 09-19-2021 Eosinophils (Bld) [#/Vol] 0.3 10*3/uL 0.0-0.45 [facility] Eosinophils/100 WBC Auto (Bl d)Ordered By: Dagoberto Romero on 09-19-2021 Eosinophils/100 WBC (Bld) 4.7 % . [facility] Erythrocyte distribution wid th Auto (RBC) [Ratio]Ordered By: Dagoberto Romero on 09-19-2021 Erythrocyte distribution width (RBC) [Ratio] 13.1 % 11.9-15.3 [facility] Estimated glomerular filtrat ion rate (GFR) non- AmericanOrdered By: Dagoberto Romero on 09-19-2021 GFR/1.73 sq M.predicted among non-blacks MDRD (S/P/Bld) [Vol rate/Area] > 60 mL/Min [facility] Hematocrit Auto (Bld) [Volum e fraction]Ordered By: Dagoberto Romero on 09-19-2021 Hematocrit (Bld) [Volume fraction] 44.6 % 34.0-46.4 [facility] Laboratory - Hematology and Cell countsOrdered By: Dagoberto Romero on 09-19-2021 Nucleated RBC/100 WBC (Bld) [Ratio] 0.1 % 0-0.5 [facility] Lymphocytes Auto (Bld) [#/Vo l]Ordered By: Dagoberto Romero on 09-19-2021 Lymphocytes (Bld) [#/Vol] 2.0 10*3/uL 1.00-4.8 [facility] Lymphocytes/100 WBC Auto (Bl d)Ordered By: Dagoberto Romero on 09-19-2021 Lymphocytes/100 WBC (Bld) 28.5 % . [facility] MCH Auto (RBC) [Entitic mass ]Ordered By: Dagoberto Romero on 09-19-2021 MCH (RBC) [Entitic mass] 31.7 pg 24.7-34.3 [facility] MCHC Auto (RBC) [Mass/Vol]Or dered By: Dagoberto Romero on 09-19-2021 MCHC (RBC) [Mass/Vol] 33.7 g/dL 32.0-35.0 [facility] MCV Auto (RBC) [Entitic vol] Ordered By: Dagoberto Romero on 09-19-2021 MCV (RBC) [Entitic vol] 94.2 fL 80-100 [facility] Monocytes Auto (Bld) [#/Vol] Ordered By: Dagoberto Romero on 09-19-2021 Monocytes (Bld) [#/Vol] 0.7 10*3/uL 0.0-0.8 [facility] Monocytes/100 WBC Auto (Bld) Ordered By: Dagoberto Romero on 09-19-2021 Monocytes/100 WBC (Bld) 9.7 % . [facility] Neutrophils Auto (Bld) [#/Vo l]Ordered By: Dagoberto Romero on 09-19-2021 Neutrophils (Bld) [#/Vol] 3.9 10*3/uL 1.8-7.7 [facility] Neutrophils/100 WBC Auto (Bl d)Ordered By: Dagoberto Romero on 09-19-2021 Neutrophils/100 WBC (Bld) 56.8 % . [facility] No Panel InformationOrdered By: Dagoberto Romero on 09-19-2021 Estimated GFR () > 60 mL/Min [facility] Comment on above: GFR estimated refere nce range: According to KDOQI guidelines, <60 ml/min/1.73m2 is sufficient to diagnose a patient with chronic kidney disease. Pharmacy Creatinine Clearance (Chem N/A [facility] Platelet mean volume Auto (B ld) [Entitic vol]Ordered By: Dagoberto Romero on 09-19-2021 Platelet mean volume (Bld) [Entitic vol] 9.6 fL 6.3-10.7 [facility] Platelets Auto (Bld) [#/Vol] Ordered By: Dagoberto Romero on 09-19-2021 Platelets (Bld) [#/Vol] 254 10*3/uL 150-450 [facility] RBC Auto (Bld) [#/Vol]Ordere d By: Dagoberto Romero on 09-19-2021 RBC (Bld) [#/Vol] 4.74 10*6/uL 3.60-5.00 [facility] Serum or plasma calcium skyla urement (mass/volume)Ordered By: Dagoberto Romero on 09-19-2021 Calcium [Mass/Vol] 8.5 mg/dL 8.2-10.2 [facility] Serum or plasma chloride florin surement (moles/volume)Ordered By: Dagoberto Romero on 09-19-2021 Chloride [Moles/Vol] 105 mmol/L 95-114 [facility] Serum or plasma glucose skyla urement (mass/volume)Ordered By: Dagoberto Romero on 09-19-2021 Glucose [Mass/Vol] 97 mg/dL 70-100 [facility] Comment on above: ADA recommended refe rence range Random Glucose Reference Range is dependent on time and content of last meal. Glucose of more than 200 mg/dL in a nonstressed, ambulatory subject supports the diagnosis of Diabetes Mellitus. Serum or plasma potassium me asurement (moles/volume)Ordered By: Dagoberto Romero on 09-19-2021 Potassium [Moles/Vol] 4.1 mmol/L 3.5-5.1 [facility] Serum or plasma sodium measu rement (moles/volume)Ordered By: Dagoberto Romero on 09-19-2021 Sodium [Moles/Vol] 137 mmol/L 136-146 [facility] Serum or plasma total carbon dioxide measurement (moles/volume)Ordered By: Dagoberto Romero on 09-19-2021 CO2 [Moles/Vol] 23.5 mmol/L 22.0-30.0 [facility] Serum or plasma urea nitroge n measurement (mass/volume)Ordered By: Dagoberto Romero on 09-19-2021 Urea nitrogen [Mass/Vol] 12 mg/dL 12-15 [facility] CBC AUTO DIFFon 09-13-2021 BASO # 0.0 103/ul Normal 0.0-0.1 [facility] Comment on above: Performed By: #### C BC #### [facility] [address] [place] [address] Dr. Nolan Biggs Basophils/100 WBC (Bld) 0.2 % Normal 0.2-2.0 [facility] Comment on above: Performed By: #### C BC #### [facility] [address] [place] [address] Dr. Nolan Biggs EO # 0.2 103/ul Normal 0.0-0.7 [facility] Comment on above: Performed By: #### C BC #### [facility] [address] [place] [address] Dr. Nolan Biggs Eosinophils/100 WBC (Bld) 3.2 % Normal 0.9-7.0 [facility] Comment on above: Performed By: #### C BC #### [facility] [address] [address] [address] Nolan Biggs Erythrocyte distribution width (RBC) [Ratio] 12.3 % Normal 11.0-15.0 [facility] Comment on above: Performed By: #### C BC #### [facility] [address] [place] [address] Dr. Nolan Biggs Hematocrit (Bld) [Volume fraction] 44.6 % Normal 36.0-48.0 [facility] Comment on above: Performed By: #### C BC #### [facility] [address] [place] [address] Dr. Nolan Biggs Hemoglobin (Bld) [Mass/Vol] 14.8 g/dL Normal 12.0-16.0 [facility] Comment on above: Performed By: #### C BC #### [facility] [address] [place] [address] Dr. Nolan Biggs IG # 0.02 10e3/ul Normal 0.00-0.03 [facility] Comment on above: Performed By: #### C BC #### [facility] [address] [place] [address] Dr. Nolan Biggs IG % 0.3 % Normal 0.0-0.5 [facility] Comment on above: Performed By: #### C BC #### [facility] [address] [place] [address] Dr. Nolan Biggs LYMPH # 2.4 103/ul Normal 1.2-3.8 [facility] Comment on above: Performed By: #### C BC #### [facility] [address] [place] [address] Dr. Nolan Biggs Lymphocytes/100 WBC (Bld) 40.0 % Normal 20.5-60.0 [facility] Comment on above: Performed By: #### C BC #### [facility] [address] [place] [address] Dr. Nolan Biggs MANUAL DIFF REQ NO Normal [facility] Comment on above: Performed By: #### C BC #### [facility] [address] [place] [address] Dr. Nolan Biggs MCH (RBC) [Entitic mass] 30.9 pg Normal 26.7-34.0 [facility] Comment on above: Performed By: #### C BC #### [facility] [address] [place] [address] Dr. Nolan Biggs MCHC (RBC) [Mass/Vol] 33.2 g/dL Normal 29.9-35.2 [facility] Comment on above: Performed By: #### C BC #### [facility] [address] [place] [address] Dr. Nolan Biggs MCV (RBC) [Entitic vol] 93.1 fL Normal 81.0-99.0 [facility] Comment on above: Performed By: #### C BC #### [facility] [address] [place] [address] Dr. Nolan Biggs MONO # 0.5 103/ul Normal 0.3-0.8 [facility] Comment on above: Performed By: #### C BC #### [facility] [address] [place] [address] Dr. Nolan Biggs Monocytes/100 WBC (Bld) 8.4 % Normal 1.7-12.0 [facility] Comment on above: Performed By: #### C BC #### [facility] [address] [place] [address] Dr. Nolan Biggs NEUT # 2.9 103/ul Normal 1.4-6.5 [facility] Comment on above: Performed By: #### C BC #### [facility] [address] [place] [address] Dr. Nolan Biggs Neutrophils/100 WBC (Bld) 47.9 % Normal 43.0-75.0 [facility] Comment on above: Performed By: #### C BC #### [facility] [address] [place] [address] Dr. Nloan Biggs Platelet mean volume (Bld) [Entitic vol] 10.7 fL Normal 9.5-13.5 [facility] Comment on above: Performed By: #### C BC #### [facility] [address] [place] [address] Dr. Nolan Biggs PLT 298 103/ul Normal 150-450 [facility] Comment on above: Performed By: #### C BC #### [facility] [address] [place] [address] Dr. Nolan Biggs RBC 4.79 106/ul Normal 4.20-5.40 [facility] Comment on above: Performed By: #### C BC #### [facility] [address] [place] [address] Dr. Nolan Biggs WBC 6.0 103/ul Normal 4.0-11.0 [facility] Comment on above: Performed By: #### C #### [facility] [id number] Nolan Biggs CT ABD/PELVIS WO CONon [...] LEILANI SOLOMON Date: 2021-09-13 21:13 Normal [facility] Covid-19 PCR (CVDTB)on 08-24 SARS-CoV-2 (COVID-19) RNA LINDSEY+probe Ql (Unsp spec) Not detected Normal NOT DETECTED [facility] Comment on above: Result Comment: When diagnostic [...] for this test is supported by the Appeals Analyst of Health and Human Service's declaration [...] used). Performed By: #### C BC #### [facility] [address] [place] [address] Dr. Nolan Biggs ER URINE PROFILEon 2 Bilirubin Ql (U) SMALL Abnormal NEGATIVE [facility] Comment on above: Performed By: #### E RUR #### [facility] [address] [place] [address] Dr. Nolan Biggs Clarity (U) CLEAR Normal CLEAR [facility] Comment on above: Performed By: #### E RUR #### [facility] [address] [place] [address] Dr. Nolan Biggs Color (U) DK. YELLOW Normal YELLOW [facility] Comment on above: Performed By: #### E RUR #### [facility] [address] [place] [address] Dr. Nolan URBINA A micrscopic examination will be performed if indicated. Normal [facility] Comment on above: Performed By: #### E RUR #### [facility] [address] [place] [address] Dr. Nolan Biggs Glucose Ql (U) Negative Normal NEGATIVE [facility] Comment on above: Performed By: #### E RUR #### [facility] [address] [place] [address] Dr. Nolan Biggs Hemoglobin Ql (U) Negative Normal NEGATIVE [facility] Comment on above: Performed By: #### E RUR #### [facility] [address] [place] [address] Dr. Nolan Biggs Ketones Ql (U) Negative Normal NEGATIVE [facility] Comment on above: Performed By: #### E RUR #### [facility] [address] [place] [address] Dr. Nolan Biggs LEUKOCYTES Negative Normal NEGATIVE [facility] Comment on above: Performed By: #### E RUR #### [facility] [address] [place] [address] Dr. Nolan Biggs Nitrite Ql (U) Negative Normal NEGATIVE [facility] Comment on above: Performed By: #### E RUR #### [facility] [address] [place] [address] Dr. Nolan Biggs pH (U) 5.5 [pH] Normal 5-9 [facility] Comment on above: Performed By: #### E RUR #### [facility] [address] [place] [address] Dr. Nolan Biggs SPEC GRAVITY >=1.030 Abnormal 1.005-<=1.02 5 [facility] Comment on above: Performed By: #### E RUR #### [facility] [address] [place] [address] Dr. Nolan Biggs UA PROTEIN Negative Normal NEGATIVE/ TRACE [facility] Comment on above: Performed By: #### E RUR #### [facility] [address] [place] [address] Dr. Nolan Biggs UR MICRO IND NOT INDICATED Normal [facility] Comment on above: Performed By: #### E RUR #### [facility] [address] [place] [address] Dr. Nolan Biggs Urobilinogen Qn (U) 1.0 {Jan'U}/dL Normal 0.2 - 1. 0 [facility] Comment on above: Performed By: #### E RUR #### [facility] [address] [place] [address] Dr. Nolan Biggs INFLUENZA A AND B AGon 09-13 INFLUENZA A AG Negative Normal NEGATIVE SEE COMMENT [facility] Comment on above: Performed By: #### C BC #### [facility] [address] [place] [address] Dr. Nolan Biggs INFLUENZA B AG Negative Normal NEGATIVE SEE COMMENT [facility] Comment on above: Performed By: #### C BC #### [facility] [address] [place] [address] Dr. Nolan Biggs INTERNAL CONTROLS Within Normal Limits Normal Wi thin Normal Limits [facility] Comment on above: Performed By: #### C BC #### [facility] [address] [place] [address] Dr. Nolan Biggs LACTATE/LACTIC ACIDon 2021 Lactate [Moles/Vol] 0.4 mmol/L Normal 0.4-1.9 [facility] Comment on above: Performed By: #### C BC #### [facility] [address] [place] [address] Dr. Nolan Bgigs LIPASEon 09-13-2021 Lipase [Catalytic activity/Vol] 63.0 U/L Critically low 73.0-393.0 [facility] Comment on above: Performed By: #### C MP, HSTROPN, LIPA #### [facility] [address] [place] [address] Dr. Nolan Biggs PROF 14(COMP METB)on 022 Albumin [Mass/Vol] 3.5 g/dL Normal 3.4-5.0 [facility] Comment on above: Performed By: #### C MP, HSTROPN, LIPA #### [facility] [address] [place] [address] Dr. Nolan Biggs Albumin/Globulin [Mass ratio] 0.8 {ratio} Normal [facility] Comment on above: Performed By: #### C MP, HSTROPN, LIPA #### [facility] [address] [place] [address] Dr. Nolan Biggs ALP [Catalytic activity/Vol] 83 U/L Normal 46-116 [facility] Comment on above: Performed By: #### C MP, HSTROPN, LIPA #### [facility] [address] [place] [address] Dr. Nolan Biggs ALT [Catalytic activity/Vol] 143 U/L Critically high 14-59 [facility] Comment on above: Performed By: #### C MP, HSTROPN, LIPA #### [facility] [address] [address] [address] Nolan Biggs Anion gap [Moles/Vol] 10.9 mmol/L Normal [facility] Comment on above: Performed By: #### C MP, HSTROPN, LIPA #### [facility] [address] [address] [address] Nolan Biggs AST [Catalytic activity/Vol] 82 U/L Critically high 15-37 [facility] Comment on above: Performed By: #### C MP, HSTROPN, LIPA #### [facility] [address] [place] [address] Dr. Nolan Biggs Bilirubin [Mass/Vol] 0.6 mg/dL Normal 0.2-1.0 [facility] Comment on above: Performed By: #### C MP, HSTROPN, LIPA #### [facility] [address] [place] [address] Dr. Nolan Biggs Calcium [Mass/Vol] 8.4 mg/dL Critically low 8.5-10.1 [facility] Comment on above: Performed By: #### C MP, HSTROPN, LIPA #### [facility] [address] [place] [address] Dr. Nolan Biggs Chloride [Moles/Vol] 106 mmol/L Normal 98-107 [facility] Comment on above: Performed By: #### C MP, HSTROPN, LIPA #### [facility] [address] [address] [address] Nolan Biggs CO2 [Moles/Vol] 26.2 mmol/L Normal 21.0-32.0 [facility] Comment on above: Performed By: #### C MP, HSTROPN, LIPA #### [facility] [address] [place] [address] Dr. Nolan Biggs Creatinine [Mass/Vol] 0.82 mg/dL Normal 0.55-1.02 [facility] Comment on above: Performed By: #### C MP, HSTROPN, LIPA #### [facility] [address] [address] [address] Nolan Biggs EGFR-AF LATVIAN >60 Normal >=60 [facility] Comment on above: Performed By: #### C MP, HSTROPN, LIPA #### [facility] [address] [address] [address] Nolan Biggs EGFR-NON AF LATVIAN >60 Normal >=60 [facility] Comment on above: Performed By: #### C MP, HSTROPN, LIPA #### [facility] [address] [address] [address] Nolan Biggs Globulin (S) [Mass/Vol] 4.2 g/dL Normal [facility] Comment on above: Performed By: #### C MP, HSTROPN, LIPA #### [facility] [address] [place] [address] Dr. Nolan Biggs Glucose [Mass/Vol] 112 mg/dL Critically high 74-106 [facility] Comment on above: Performed By: #### C MP, HSTROPN, LIPA #### [facility] [address] [address] [address] Nolan Biggs Potassium [Moles/Vol] 4.1 mmol/L Normal 3.5-5.1 [facility] Comment on above: Performed By: #### C MP, HSTROPN, LIPA #### [facility] [address] [place] [address] Dr. Nolan Biggs Protein [Mass/Vol] 7.7 g/dL Normal 6.4-8.2 [facility] Comment on above: Performed By: #### C MP, HSTROPN, LIPA #### [facility] [address] [address] [address] Nolan Biggs Sodium [Moles/Vol] 139 mmol/L Normal 136-145 [facility] Comment on above: Performed By: #### C MP, HSTROPN, LIPA #### [facility] [address] [address] [address] Nolan Biggs Urea nitrogen [Mass/Vol] 11.0 mg/dL Normal 7.0-18.0 [facility] Comment on above: Performed By: #### C MP, HSTROPN, LIPA #### [facility] [address] [place] [address] Dr. Nolan Biggs Urea nitrogen/Creatinine [Mass ratio] 13.4 mg/mg Normal [facility] Comment on above: Performed By: #### C MP, HSTROPN, LIPA #### [facility] [address] [place] [address] Dr. Nolan Biggs PROTIMEon 09-13-2021 INR Coag (PPP) [Relative time] 1.00 {INR} Normal [facility] Comment on above: Performed By: #### C BC #### [facility] [address] [place] [address] Dr. Nolan Biggs INR GUIDELINES SEE BELOW Normal [facility] Comment on above: Result Comment: PATRICIA RED INR: 2.0 - 3.0 CONDITIONS NOT LISTED BELOW 2.5 - 3.5 FOR PROSTHETIC HEART VALVE REPLACEMENT 2.5 - 3.5 RECURRENT THROMBOSIS Performed By: #### C BC #### [facility] [address] [place] [address] Dr. Nolan Biggs PT Coag (PPP) [Time] 10.8 s Normal 9.0-11.6 [facility] Comment on above: Performed By: #### C BC #### [facility] [address] [place] [address] Dr. Nolan Biggs PTTon 09-13-2021 aPTT Coag (Bld) [Time] 27.3 s Normal 22.3-36.2 [facility] Comment on above: Performed By: #### C BC #### [facility] [address] [place] [address] Dr. Nolan Biggs TROPONIN, HIGH SENSITIVITYon 09-13-2021 HSTROP <4.0 Normal 4.0-51.3 [facility] Comment on above: Result Comment: CUT- OFF POINTS HAVE BEEN ESTABLISHED BASED ON THE FOURTH UNIVERSAL DEFINITIONS OF MYOCARDIAL INFARCTION. THE UPPER REFERENCE LIMIT (URL) OF TROPONIN, DEFINED THE 99TH PERCENTILE OF cTnI DISTRIBUTION IN A REFERENCE POPULATION, HAS BEEN CONFIRMED THE DECISION THRESHOLD FOR [place] DIAGNOSIS. Performed By: #### C BC #### [facility] [address] [place] [address] Dr. Nolan Biggs Vital Signs Date Time Vital Sign Value Performing Clinician Facility 02-20-2024 16:42-0500 Body temperature 98.06 [degF] Nikhil Arley [facility] 02-20-2024 16:42-0500 Diastolic blood pressure 92 mm[Hg] Nikhil Arley [facility] 02-20-2024 16:42-0500 Heart rate 83 /min Nikhil Arley [facility] 02-20-2024 16:42-0500 Respiratory rate 20 /min Nikhil Arley [facility] 02-20-2024 16:42-0500 SaO2% (BldA) [Mass fraction] 99 % Nikhil Arley [facility] 02-20-2024 16:42-0500 Systolic blood pressure 164 mm[Hg] Nikhil Arley [facility] 02-16-2024 11:00-0500 Diastolic blood pressure 95 mm[Hg] Nikhil Arley [facility] 02-16-2024 11:00-0500 Heart rate 84 /min Nikhil Arley [facility] 02-16-2024 11:00-0500 Mean blood pressure 112 mm[Hg] Nikhil Arley [facility] 02-16-2024 11:00-0500 SaO2% (BldA) [Mass fraction] 97 % Nikhil Arley [facility] 02-16-2024 11:00-0500 Systolic blood pressure 145 mm[Hg] Nikhil Arley [facility] 02-16-2024 10:30-0500 Diastolic blood pressure 91 mm[Hg] Nihkil Arley [facility] 02-16-2024 10:30-0500 Heart rate 92 /min Nikhil Alrey [facility] 02-16-2024 10:30-0500 Mean blood pressure 107 mm[Hg] Nikhil Arley [facility] 02-16-2024 10:30-0500 Respiratory rate 12 /min Nikhil Arley [facility] 02-16-2024 10:30-0500 SaO2% (BldA) [Mass fraction] 94 % Nikhil Arley [facility] 02-16-2024 10:30-0500 Systolic blood pressure 138 mm[Hg] Nikhil Arley [facility] 02-16-2024 09:58-0500 Diastolic blood pressure 82 mm[Hg] Nikhil Arley [facility] 02-16-2024 09:58-0500 Heart rate 89 /min Nikhil Arley [facility] 02-16-2024 09:58-0500 Hourly Rounding Nikhil Arley [facility] 02-16-2024 09:58-0500 Mean blood pressure 99 mm[Hg] Nikhil Arley [facility] 02-16-2024 09:58-0500 Respiratory rate 17 /min Nikhil Arley [facility] 02-16-2024 09:58-0500 SaO2% (BldA) [Mass fraction] 95 % Nikhil Arley [facility] 02-16-2024 09:58-0500 Systolic blood pressure 132 mm[Hg] Nikhil Arley [facility] 02-16-2024 09:48-0500 Respiratory rate 16 /min Nikhil Tubbs [facility] 02-16-2024 09:43-0500 Respiratory rate 16 /min Nikhil Tubbs [facility] 02-16-2024 09:20-0500 Body temperature 98.24 [degF] Nikhil Tubbs [facility] 02-16-2024 09:20-0500 Heart rate 102 /min Nikhil Tubbs [facility] 02-16-2024 09:20-0500 Respiratory rate 17 /min Nikhil Tubbs [facility] 02-14-2024 15:00-0500 Diastolic blood pressure 94 mm[Hg] Jorge Rodrigueze [facility] 02-14-2024 15:00-0500 Heart rate 86 /min Jorge Rodrigueze [facility] 02-14-2024 15:00-0500 Mean blood pressure 108 mm[Hg] Jorge Arnaldo [facility] 02-14-2024 15:00-0500 SaO2% (BldA) [Mass fraction] 97 % Jorge Arnaldo [facility] 02-14-2024 15:00-0500 Systolic blood pressure 135 mm[Hg] Jorge Arnaldo [facility] 02-14-2024 14:27-0500 Heart rate 83 /min Jorge Arnaldo [facility] 02-14-2024 14:27-0500 Respiratory rate 20 /min Jorge Arnaldo [facility] 02-14-2024 14:15-0500 Heart rate 74 /min Jorge Arnaldo [facility] 02-14-2024 14:15-0500 Respiratory rate 20 /min Jorge Mcintosh [facility] 02-14-2024 14:15-0500 SaO2% (BldA) [Mass fraction] 86 % Jorge Mcintosh [facility] 02-14-2024 14:00-0500 Mean blood pressure 105 mm[Hg] Jorge Mcintosh [facility] 02-14-2024 14:00-0500 Systolic blood pressure 134 mm[Hg] Jorge Mcintosh [facility] 02-14-2024 12:19-0500 Body temperature 98.42 [degF] Jorge Mcintosh [facility] 02-14-2024 12:19-0500 Diastolic blood pressure 90 mm[Hg] Jorge Mcintosh [facility] 02-14-2024 12:19-0500 Heart rate 100 /min Jorge Mcintosh [facility] 02-14-2024 12:19-0500 Systolic blood pressure 144 mm[Hg] Jorge Mcintosh [facility] 02-09-2024 14:00-0500 Diastolic blood pressure 88 mm[Hg] Allyson Hardwick MD Work Phone: [facility] 02-09-2024 14:00-0500 Heart rate 94 /min Allyson Hardwick MD Work Phone: [facility] 02-09-2024 14:00-0500 Respiratory rate 16 /min Allyson Hardwick MD Work Phone: [facility] 02-09-2024 14:00-0500 SaO2% (BldA) [Mass fraction] 95 % Allyson Hardwick MD Work Phone: [facility] 02-09-2024 14:00-0500 Systolic blood pressure 150 mm[Hg] Allyson Hardwick MD Work Phone: [facility] 02-09-2024 11:16-0500 Body temperature 98.2 [degF] Allyson Hardwick MD Work Phone: [facility] 02-09-2024 10:47-0500 Body height 160 cm Allyson Hardwick MD Work Phone: [facility] 02-09-2024 10:47-0500 Body mass index (BMI) [Ratio] 44.29 kg/m2 Allyson Hardwick MD Work Phone: [facility] 02-09-2024 10:47-0500 Body weight 113.4 kg Allyson Hardwick MD Work Phone: [facility] 02-06-2024 18:20-0500 Diastolic blood pressure 87 mm[Hg] Judah Woodard MD Work Phone: [facility] 02-06-2024 18:20-0500 Heart rate 95 /min Judah Woodard MD Work Phone: [facility] 02-06-2024 18:20-0500 Respiratory rate 18 /min Judah Woodard MD Work Phone: [facility] 02-06-2024 18:20-0500 SaO2% (BldA) [Mass fraction] 94 % Judah Woodard MD Work Phone: [facility] 02-06-2024 18:20-0500 Systolic blood pressure 134 mm[Hg] Judah Woodard MD Work Phone: [facility] 02-06-2024 17:05-0500 Body temperature 97.7 [degF] Judah Woodard MD Work Phone: [facility] 02-06-2024 13:03-0500 Body height 160 cm Judah Woodard MD Work Phone: [facility] 02-06-2024 13:03-0500 Body mass index (BMI) [Ratio] 43.74 kg/m2 Judah Woodard MD Work Phone: [facility] 02-06-2024 13:03-0500 Body weight 112 kg Judah Woodard MD Work Phone: [facility] 02-05-2024 20:37-0500 Diastolic blood pressure 70 mm[Hg] Services [employer] Work Phone: [facility] 02-05-2024 20:37-0500 Heart rate 70 /min Services [employer] Work Phone: [facility] 02-05-2024 20:37-0500 Respiratory rate 18 /min Services [facility] [employer] Work Phone: [facility] 02-05-2024 20:37-0500 SaO2% (BldA) [Mass fraction] 98 % Services [facility] [employer] Work Phone: [facility] 02-05-2024 20:37-0500 Systolic blood pressure 132 mm[Hg] Services [employer] Work Phone: [facility] 02-05-2024 19:12-0500 Body height 160.02 cm Services [facility] [employer] Work Phone: [facility] 02-05-2024 19:12-0500 Body temperature 98.3 [degF] Services [facility] Work Phone: [facility] 02-05-2024 19:12-0500 Body weight 114 kg Services [employer] Work Phone: [facility] 02-04-2024 17:03-0500 Body temperature 97.7 [degF] Jorge Mcintosh [facility] 02-04-2024 17:03-0500 Diastolic blood pressure 97 mm[Hg] Jorge Mcintosh [facility] 02-04-2024 17:03-0500 Heart rate 102 /min Jorge Mcintosh [facility] 02-04-2024 17:03-0500 Respiratory rate 18 /min Jorge Mcintosh [facility] 02-04-2024 17:03-0500 SaO2% (BldA) [Mass fraction] 99 % Jorge Mcintosh [facility] 02-04-2024 17:03-0500 Systolic blood pressure 149 mm[Hg] Jorge Mcintosh [facility] 02-04-2024 15:22-0500 Body height 160 cm Dino Melgoza MD Work Phone: [facility] 02-04-2024 15:22-0500 Body mass index (BMI) [Ratio] 44.29 kg/m2 Dino Melgoza MD Work Phone: [facility] 02-04-2024 15:22-0500 Body weight 113.4 kg Dino Melgoza MD Work Phone: [facility] 02-04-2024 15:22-0500 Diastolic blood pressure 93 mm[Hg] Dino Melgoza MD Work Phone: [facility] 02-04-2024 15:22-0500 Heart rate 101 /min Dino Melgoza MD Work Phone: [facility] 02-04-2024 15:22-0500 Respiratory rate 22 /min Dino Melgoza MD Work Phone: [facility] 02-04-2024 15:22-0500 SaO2% (BldA) [Mass fraction] 98 % Dino Melgoza MD Work Phone: [facility] 02-04-2024 15:22-0500 Systolic blood pressure 164 mm[Hg] Dino Melgoza MD Work Phone: [facility] 01-30-2024 12:00-0500 Diastolic blood pressure 103 mm[Hg] Marlee Fitzpatrick MD Work Phone: [facility] 01-30-2024 12:00-0500 Heart rate 60 /min Marlee Fitzpatrick MD Work Phone: [facility] 01-30-2024 12:00-0500 Respiratory rate 16 /min Marlee Fitzpatrick MD Work Phone: [facility] 01-30-2024 12:00-0500 SaO2% (BldA) [Mass fraction] 95 % Marlee Fitzpatrick MD Work Phone: [facility] 01-30-2024 12:00-0500 Systolic blood pressure 138 mm[Hg] Marlee Fitzpatrick MD Work Phone: [facility] 01-30-2024 11:00-0500 Body height 160 cm Marlee Fitzpatrick MD Work Phone: [facility] 01-30-2024 11:00-0500 Body mass index (BMI) [Ratio] 44.29 kg/m2 Marlee Fitzpatrick MD Work Phone: [facility] 01-30-2024 11:00-0500 Body temperature 98.1 [degF] Marlee Fitzpatrick MD Work Phone: [facility] 01-30-2024 11:00-0500 Body weight 113.4 kg Marlee Fitzpatrick MD Work Phone: [facility] 01-28-2024 08:15-0500 Body temperature 96.8 [degF] Giulia Man MD Work Phone: [facility] 01-28-2024 08:15-0500 Diastolic blood pressure 84 mm[Hg] Giulia Man MD Work Phone: [facility] 01-28-2024 08:15-0500 Heart rate 80 /min Giulia Man MD Work Phone: [facility] 01-28-2024 08:15-0500 Respiratory rate 16 /min Giulia Man MD Work Phone: [facility] 01-28-2024 08:15-0500 SaO2% (BldA) [Mass fraction] 99 % Giulia Man MD Work Phone: [facility] 01-28-2024 08:15-0500 Systolic blood pressure 151 mm[Hg] Giulia Man MD Work Phone: [facility] 01-27-2024 03:46-0500 Body height 160 cm Giulia Man MD Work Phone: [facility] 01-27-2024 03:46-0500 Body mass index (BMI) [Ratio] 44.29 kg/m2 Giulia Man MD Work Phone: [facility] 01-27-2024 03:46-0500 Body weight 113.4 kg Giulia Man MD Work Phone: [facility] 01-27-2024 02:45-0500 Diastolic blood pressure 83 mm[Hg] Bib Bowman MD Work Phone: [facility] 01-27-2024 02:45-0500 Heart rate 84 /min Bbi Bowman MD Work Phone: [phone] [place] [address] 01-27-2024 02:45-0500 Respiratory rate 18 /min Bib Bowman MD Work Phone: [facility] 01-27-2024 02:45-0500 SaO2% (BldA) [Mass fraction] 98 % Bib Bowman MD Work Phone: [facility] 01-27-2024 02:45-0500 Systolic blood pressure 123 mm[Hg] Bib Bowman MD Work Phone: [facility] 01-26-2024 16:46-0500 Body height 160 cm Bib Bowman MD Work Phone: [facility] 01-26-2024 16:46-0500 Body mass index (BMI) [Ratio] 44.29 kg/m2 Bib Bowman MD Work Phone: [facility] 01-26-2024 16:46-0500 Body temperature 98.1 [degF] Bib Bowman MD Work Phone: [facility] 01-26-2024 16:46-0500 Body weight 113.4 kg Bib Bowman MD Work Phone: [facility] 01-26-2024 11:48-0500 Body height 160.02 cm Services [employer] Work Phone: [facility] 01-26-2024 11:48-0500 Body temperature 97.6 [degF] Services [employer] Work Phone: [facility] 01-26-2024 11:48-0500 Body weight 116 kg Services [employer] Work Phone: [facility] 01-26-2024 11:48-0500 Diastolic blood pressure 84 mm[Hg] Services [employer] Work Phone: [facility] 01-26-2024 11:48-0500 Heart rate 80 /min Services [employer] Work Phone: [facility] 01-26-2024 11:48-0500 Respiratory rate 16 /min Services [employer] Work Phone: [facility] 01-26-2024 11:48-0500 SaO2% (BldA) [Mass fraction] 100 % Services [facility] Work Phone: [facility] 01-26-2024 11:48-0500 Systolic blood pressure 162 mm[Hg] Services [employer] Work Phone: [facility] 01-25-2024 15:35-0400 Body temperature 97.88 [degF] Jorge Mcintosh [facility] 01-25-2024 15:35-0400 Diastolic blood pressure 89 mm[Hg] Jorge Mcintosh [facility] 01-25-2024 15:35-0400 Heart rate 83 /min Jorge Mcintosh [facility] 01-25-2024 15:35-0400 Respiratory rate 16 /min Jorge Mcintosh [facility] 01-25-2024 15:35-0400 SaO2% (BldA) [Mass fraction] 100 % Jorge Mcintosh [facility] 01-25-2024 15:35-0400 Systolic blood pressure 176 mm[Hg] Jorge Mcintosh [facility] 01-24-2024 20:19-0400 Diastolic blood pressure 89 mm[Hg] Marlee Fitzpatrick MD Work Phone: [facility] 01-24-2024 20:19-0400 Heart rate 80 /min Marlee Fitzpatrick MD Work Phone: [facility] 01-24-2024 20:19-0400 Respiratory rate 18 /min Marlee Fitzpatrick MD Work Phone: [facility] 01-24-2024 20:19-0400 SaO2% (BldA) [Mass fraction] 99 % Marlee Fitzpatrick MD Work Phone: [facility] 01-24-2024 20:19-0400 Systolic blood pressure 180 mm[Hg] Marlee Fitzpatrick MD Work Phone: [facility] 01-24-2024 19:50-0400 Body height 160 cm Marlee Fitzpatrick MD Work Phone: [facility] 01-24-2024 19:50-0400 Body mass index (BMI) [Ratio] 44.29 kg/m2 Marlee Fitzpatrick MD Work Phone: [facility] 01-24-2024 19:50-0400 Body temperature 97.2 [degF] Marlee Fitzpatrick MD Work Phone: [facility] 01-24-2024 19:50-0400 Body weight 113.4 kg Marlee Fitzpatrick MD Work Phone: [facility] 01-23-2024 17:00-0400 Diastolic blood pressure 100 mm[Hg] [facility] 01-23-2024 17:00-0400 Mean blood pressure 116 mm[Hg] [facility] 01-23-2024 17:00-0400 Systolic blood pressure 149 mm[Hg] [facility] 01-23-2024 16:00-0400 Diastolic blood pressure 66 mm[Hg] [facility] 01-23-2024 16:00-0400 Mean blood pressure 87 mm[Hg] [facility] 01-23-2024 16:00-0400 Systolic blood pressure 130 mm[Hg] [facility] 01-23-2024 15:41-0400 Diastolic blood pressure 78 mm[Hg] [facility] 01-23-2024 15:41-0400 Mean blood pressure 90 mm[Hg] [facility] 01-23-2024 15:41-0400 Systolic blood pressure 115 mm[Hg] [facility] 01-23-2024 14:01-0400 Body temperature 97.7 [degF] [facility] 01-23-2024 14:01-0400 Heart rate 88 /min [facility] 01-23-2024 14:01-0400 Respiratory rate 18 /min [facility] 01-23-2024 14:01-0400 SaO2% (BldA) [Mass fraction] 98 % [facility] 01-21-2024 17:30-0400 Diastolic blood pressure 87 mm[Hg] Marlee Fitzpatrick MD Work Phone: [facility] 01-21-2024 17:30-0400 Heart rate 88 /min Marlee Fitzpatrick MD Work Phone: [facility] 01-21-2024 17:30-0400 Respiratory rate 16 /min Marlee Fitzpatrick MD Work Phone: [facility] 01-21-2024 17:30-0400 SaO2% (BldA) [Mass fraction] 96 % Marlee Fitzpatrick MD Work Phone: [facility] 01-21-2024 17:30-0400 Systolic blood pressure 161 mm[Hg] Marlee Fitzpatrick MD Work Phone: [facility] 01-21-2024 14:30-0400 Body height 160 cm Marlee Fitzpatrick MD Work Phone: [facility] 01-21-2024 14:30-0400 Body mass index (BMI) [Ratio] 44.29 kg/m2 Marlee Fitzpatrick MD Work Phone: [facility] 01-21-2024 14:30-0400 Body temperature 98.4 [degF] Marlee Fitzpatrick MD Work Phone: [facility] 01-21-2024 14:30-0400 Body weight 113.4 kg Marlee Fitzpatrick MD Work Phone: [facility] 01-16-2024 21:30-0400 Body height 160.02 cm Services [facility] Work Phone: [facility] 01-16-2024 21:30-0400 Body temperature 97.8 [degF] Services [facility] Work Phone: [facility] 01-16-2024 21:30-0400 Body weight 113.39 kg Services [facility] Work Phone: [facility] 01-16-2024 21:30-0400 Diastolic blood pressure 69 mm[Hg] [facility] Work Phone: [facility] 01-16-2024 21:30-0400 Heart rate 85 /min Services [facility] Work Phone: [facility] 01-16-2024 21:30-0400 Respiratory rate 20 /min Services [facility] Work Phone: [facility] 01-16-2024 21:30-0400 SaO2% (BldA) [Mass fraction] 98 % Services [facility] [employer] Work Phone: [facility] 01-16-2024 21:30-0400 Systolic blood pressure 136 mm[Hg] Services [facility] Work Phone: [facility] 01-14-2024 19:20-0400 Body temperature 98.06 [degF] Nikhil Arley [facility] 01-14-2024 19:20-0400 Diastolic blood pressure 88 mm[Hg] Nikhil Arley [facility] 01-14-2024 19:20-0400 Heart rate 113 /min Nikhiljaiden Tubbs [facility] 01-14-2024 19:20-0400 Respiratory rate 20 /min Nikhil Arley [facility] 01-14-2024 19:20-0400 SaO2% (BldA) [Mass fraction] 97 % Nikhil Tubbs [facility] 01-14-2024 19:20-0400 Systolic blood pressure 136 mm[Hg] Nikhil Tubbs [facility] 01-14-2024 13:38-0400 Body height 160 cm Judah Woodard MD Work Phone: [facility] 01-14-2024 13:38-0400 Body mass index (BMI) [Ratio] 44.29 kg/m2 Judah Woodard MD Work Phone: [facility] 01-14-2024 13:38-0400 Body temperature 97.2 [degF] Judah Woodard MD Work Phone: [facility] 01-14-2024 13:38-0400 Body weight 113.4 kg Judah Woodard MD Work Phone: [facility] 01-14-2024 13:38-0400 Diastolic blood pressure 82 mm[Hg] Judah Woodard MD Work Phone: [facility] 01-14-2024 13:38-0400 Heart rate 88 /min Judah Woodard MD Work Phone: [facility] 01-14-2024 13:38-0400 Systolic blood pressure 141 mm[Hg] Judah Woodard MD Work Phone: [facility] 01-13-2024 13:51-0400 Body height 160 cm Marlee Fitzpatrick MD Work Phone: [facility] 01-13-2024 13:51-0400 Body mass index (BMI) [Ratio] 44.29 kg/m2 Marlee Fitzpatrick MD Work Phone: [facility] 01-13-2024 13:51-0400 Body temperature 97.9 [degF] Marlee Fitzpatrick MD Work Phone: [facility] 01-13-2024 13:51-0400 Body weight 113.4 kg Marlee Fitzpatrick MD Work Phone: [facility] 01-13-2024 13:51-0400 Diastolic blood pressure 78 mm[Hg] Marlee Fitzpatrick MD Work Phone: [facility] 01-13-2024 13:51-0400 Heart rate 91 /min Marlee Fitzpatrick MD Work Phone: [facility] 01-13-2024 13:51-0400 Respiratory rate 16 /min Marlee Fitzpatrick MD Work Phone: [facility] 01-13-2024 13:51-0400 SaO2% (BldA) [Mass fraction] 96 % Marlee Fitzpatrick MD Work Phone: [facility] 01-13-2024 13:51-0400 Systolic blood pressure 153 mm[Hg] Marlee Fitzpatrick MD Work Phone: [facility] 01-10-2024 22:00-0400 Diastolic blood pressure 77 mm[Hg] Marlee Fitzpatrick MD Work Phone: [facility] 01-10-2024 22:00-0400 Heart rate 91 /min Marlee Fitzpatrick MD Work Phone: [facility] 01-10-2024 22:00-0400 Respiratory rate 18 /min Marlee Fitzpatrick MD Work Phone: [facility] 01-10-2024 22:00-0400 SaO2% (BldA) [Mass fraction] 96 % Marlee Fitzpatrick MD Work Phone: [facility] 01-10-2024 22:00-0400 Systolic blood pressure 142 mm[Hg] Marlee Fitzpatrick MD Work Phone: [facility] 01-10-2024 18:16-0400 Body height 160 cm Marlee Fitzpatrick MD Work Phone: [facility] 01-10-2024 18:16-0400 Body mass index (BMI) [Ratio] 44.29 kg/m2 Marlee Fitzpatrick MD Work Phone: [facility] 01-10-2024 18:16-0400 Body temperature 98.2 [degF] Marlee Fitzpatrick MD Work Phone: [facility] 01-10-2024 18:16-0400 Body weight 113.4 kg Marlee Fitzpatrick MD Work Phone: [facility] 01-08-2024 12:24-0400 Body temperature 96.6 [degF] Ace Rodgers MD Work Phone: [facility] 01-08-2024 12:24-0400 Diastolic blood pressure 104 mm[Hg] Ace Rodgers MD Work Phone: [facility] 01-08-2024 12:24-0400 Heart rate 75 /min Ace Rodgers MD Work Phone: [facility] 01-08-2024 12:24-0400 Respiratory rate 17 /min Ace Rodgers MD Work Phone: [facility] 01-08-2024 12:24-0400 SaO2% (BldA) [Mass fraction] 94 % Ace Rodgers MD Work Phone: [facility] 01-08-2024 12:24-0400 Systolic blood pressure 145 mm[Hg] Ace Rodgers MD Work Phone: [facility] 01-06-2024 17:14-0400 Body height 160 cm Ace Rodgers MD Work Phone: [facility] 01-06-2024 17:14-0400 Body mass index (BMI) [Ratio] 44.29 kg/m2 Ace Rodgers MD Work Phone: [facility] 01-06-2024 17:14-0400 Body weight 113.4 kg Ace Rodgers MD Work Phone: [facility] 01-06-2024 11:43-0400 Body temperature 98.06 [degF] Jorge Mcintosh [facility] 01-06-2024 11:43-0400 Diastolic blood pressure 86 mm[Hg] Jorge Mcintosh [facility] 01-06-2024 11:43-0400 Heart rate 83 /min Jorge Mcintosh [facility] 01-06-2024 11:43-0400 Respiratory rate 18 /min Jorge Mcintosh [facility] 01-06-2024 11:43-0400 SaO2% (BldA) [Mass fraction] 97 % Jorge Mcintosh [facility] 01-06-2024 11:43-0400 Systolic blood pressure 154 mm[Hg] Jorge Mcintosh [facility] 01-04-2024 12:16-0400 Body temperature 97.7 [degF] Ace Rodgers MD Work Phone: [facility] 01-04-2024 12:16-0400 Diastolic blood pressure 97 mm[Hg] Ace Rodgers MD Work Phone: [facility] 01-04-2024 12:16-0400 Heart rate 87 /min Ace Rodgers MD Work Phone: [facility] 01-04-2024 12:16-0400 Respiratory rate 19 /min Ace Rodgers MD Work Phone: [facility] 01-04-2024 12:16-0400 SaO2% (BldA) [Mass fraction] 97 % Ace Rodgers MD Work Phone: [facility] 01-04-2024 12:16-0400 Systolic blood pressure 147 mm[Hg] Ace Rodgers MD Work Phone: [facility] 01-01-2024 23:49-0400 Body height 160 cm Ace Rodgers MD Work Phone: [facility] 01-01-2024 23:49-0400 Body mass index (BMI) [Ratio] 45.61 kg/m2 Ace Rodgers MD Work Phone: [facility] 01-01-2024 23:49-0400 Body weight 116.8 kg Ace Rodgers MD Work Phone: [facility] 12-30-2023 19:14-0400 Body height 160 cm No Generic Provider [facility] 12-30-2023 19:14-0400 Body mass index (BMI) [Ratio] 44.64 kg/m2 No Generic Provider [facility] 12-30-2023 19:14-0400 Body temperature 97 [degF] No Generic Provider [facility] 12-30-2023 19:14-0400 Body weight 114.31 kg No Generic Provider [facility] 12-30-2023 19:14-0400 Diastolic blood pressure 87 mm[Hg] No Generic Provider [facility] 12-30-2023 19:14-0400 Heart rate 86 /min No Generic Provider [facility] 12-30-2023 19:14-0400 Respiratory rate 16 /min No Generic Provider [facility] 12-30-2023 19:14-0400 SaO2% (BldA) [Mass fraction] 98 % No Generic Provider [facility] 12-30-2023 19:14-0400 Systolic blood pressure 150 mm[Hg] No Generic Provider [facility] 12-27-2023 13:45-0400 Body height 160 cm Elke Adams MD Work Phone: [facility] 12-27-2023 13:45-0400 Body mass index (BMI) [Ratio] 45.17 kg/m2 Elke Adams MD Work Phone: [facility] 12-27-2023 13:45-0400 Body weight 115.67 kg Elke Adams MD Work Phone: [facility] 12-27-2023 13:45-0400 Diastolic blood pressure 68 mm[Hg] Elke Adams MD Work Phone: [facility] 12-27-2023 13:45-0400 Heart rate 91 /min Elke Adams MD Work Phone: [facility] 12-27-2023 13:45-0400 Respiratory rate 16 /min Elke Adams MD Work Phone: [facility] 12-27-2023 13:45-0400 Systolic blood pressure 114 mm[Hg] Elke Adams MD Work Phone: [facility] 12-26-2023 22:24-0400 Heart rate 93 /min Nikhil Arley [facility] 12-26-2023 22:24-0400 Respiratory rate 18 /min Nikhil Arley [facility] 12-26-2023 22:24-0400 SaO2% (BldA) [Mass fraction] 99 % Nikhil Arley [facility] 12-26-2023 18:13-0400 Body temperature 98.24 [degF] Nikhil Arley [facility] 12-26-2023 18:13-0400 Diastolic blood pressure 85 mm[Hg] Nikhil Arley [facility] 12-26-2023 18:13-0400 Heart rate 108 /min Nikhil Arley [facility] 12-26-2023 18:13-0400 Respiratory rate 18 /min Nikhil Arley [facility] 12-26-2023 18:13-0400 SaO2% (BldA) [Mass fraction] 98 % Nikhil Tubbs [facility] 12-26-2023 18:13-0400 Systolic blood pressure 140 mm[Hg] Nikhil Arley [facility] 12-26-2023 15:35-0400 Body height 160.02 cm Services [facility] Work Phone: [facility] 12-26-2023 15:35-0400 Body temperature 97.9 [degF] Services [facility] Work Phone: [facility] 12-26-2023 15:35-0400 Body weight 114.1 kg Services [facility] Work Phone: [facility] 12-26-2023 15:35-0400 Diastolic blood pressure 79 mm[Hg] [facility] Work Phone: [facility] 12-26-2023 15:35-0400 Heart rate 95 /min Services [employer] Work Phone: [facility] 12-26-2023 15:35-0400 Respiratory rate 17 /min Services [employer] Work Phone: [facility] 12-26-2023 15:35-0400 SaO2% (BldA) [Mass fraction] 98 % Services [employer] Work Phone: [facility] 12-26-2023 15:35-0400 Systolic blood pressure 140 mm[Hg] Services [facility] [employer] Work Phone: [facility] 12-24-2023 16:53-0400 Diastolic blood pressure 88 mm[Hg] [facility] 12-24-2023 16:53-0400 Heart rate 83 /min [facility] 12-24-2023 16:53-0400 Mean blood pressure 106 mm[Hg] [facility] 12-24-2023 16:53-0400 Respiratory rate 19 /min [facility] 12-24-2023 16:53-0400 SaO2% (BldA) [Mass fraction] 98 % [facility] 12-24-2023 16:53-0400 Systolic blood pressure 142 mm[Hg] [facility] 12-24-2023 16:00-0400 Diastolic blood pressure 124 mm[Hg] [facility] 12-24-2023 16:00-0400 Heart rate 89 /min [facility] 12-24-2023 16:00-0400 Mean blood pressure 130 mm[Hg] [facility] 12-24-2023 16:00-0400 SaO2% (BldA) [Mass fraction] 99 % [facility] 12-24-2023 14:27-0400 Body temperature 98.24 [degF] [facility] 12-24-2023 14:27-0400 Diastolic blood pressure 97 mm[Hg] [facility] 12-24-2023 14:27-0400 Heart rate 68 /min [facility] 12-24-2023 14:27-0400 Respiratory rate 20 /min [facility] 12-24-2023 14:27-0400 SaO2% (BldA) [Mass fraction] 94 % [facility] 12-24-2023 14:27-0400 Systolic blood pressure 174 mm[Hg] [facility] 12-24-2023 10:44-0400 Body height 160 cm Chidi Joseph MD Work Phone: [facility] 12-24-2023 10:44-0400 Body mass index (BMI) [Ratio] 45.17 kg/m2 Chidi Joseph MD Work Phone: [facility] 12-24-2023 10:44-0400 Body temperature 98.29 [degF] Chidi Joseph MD Work Phone: [facility] 12-24-2023 10:44-0400 Body weight 115.67 kg Chidi Joseph MD Work Phone: [facility] 12-24-2023 10:44-0400 Diastolic blood pressure 82 mm[Hg] Chidi Joseph MD Work Phone: [facility] 12-24-2023 10:44-0400 Heart rate 66 /min Chidi Joseph MD Work Phone: [facility] 12-24-2023 10:44-0400 Systolic blood pressure 147 mm[Hg] Chidi Joseph MD Work Phone: [facility] 12-13-2023 13:40-0400 Body temperature 98.42 [degF] Jorge Mcintosh [facility] 12-13-2023 13:40-0400 Diastolic blood pressure 90 mm[Hg] Jorge Mcintosh [facility] 12-13-2023 13:40-0400 Heart rate 91 /min Jorge Mcintosh [facility] 12-13-2023 13:40-0400 Respiratory rate 18 /min Jorge Mcintosh [facility] 12-13-2023 13:40-0400 SaO2% (BldA) [Mass fraction] 99 % Jorge Mcintosh [facility] 12-13-2023 13:40-0400 Systolic blood pressure 134 mm[Hg] Jorge Mcintosh [facility] 12-12-2023 18:58-0400 Body height 160.02 cm Services [employer] Work Phone: [facility] 12-12-2023 18:58-0400 Body temperature 98.2 [degF] Services [employer] Work Phone: [facility] 12-12-2023 18:58-0400 Body weight 115 kg [facility] Work Phone: [facility] 12-12-2023 18:58-0400 Diastolic blood pressure 104 mm[Hg] Services [employer] Work Phone: [facility] 12-12-2023 18:58-0400 Heart rate 92 /min Services [employer] Work Phone: [facility] 12-12-2023 18:58-0400 Respiratory rate 18 /min Services [employer] Work Phone: [facility] 12-12-2023 18:58-0400 SaO2% (BldA) [Mass fraction] 99 % [facility] Work Phone: [facility] 12-12-2023 18:58-0400 Systolic blood pressure 182 mm[Hg] Services [facility] Work Phone: [facility] 12-04-2023 23:01-0400 Diastolic blood pressure 69 mm[Hg] Ben Urbina MD Work Phone: [facility] 12-04-2023 23:01-0400 Heart rate 77 /min Ben Urbina MD Work Phone: [facility] 12-04-2023 23:01-0400 Respiratory rate 16 /min Ben Urbina MD Work Phone: [facility] 12-04-2023 23:01-0400 SaO2% (BldA) [Mass fraction] 96 % Ben Urbina MD Work Phone: [facility] 12-04-2023 23:01-0400 Systolic blood pressure 117 mm[Hg] Ben Urbina MD Work Phone: [facility] [employer] 12-04-2023 21:54-0400 Body height 160 cm Ben Urbina MD Work Phone: [facility] [employer] 12-04-2023 21:54-0400 Body mass index (BMI) [Ratio] 44.29 kg/m2 Ben Urbina MD Work Phone: [facility] [employer] 12-04-2023 21:54-0400 Body temperature 98.2 [degF] Ben Urbina MD Work Phone: [facility] [employer] 12-04-2023 21:54-0400 Body weight 113.4 kg Ben Urbina MD Work Phone: [facility] 12-02-2023 01:30-0400 Diastolic blood pressure 105 mm[Hg] Services [facility] Work Phone: [facility] 12-02-2023 01:30-0400 Heart rate 74 /min Services [facility] Work Phone: [facility] 12-02-2023 01:30-0400 Respiratory rate 18 /min Services [facility] Work Phone: [facility] 12-02-2023 01:30-0400 SaO2% (BldA) [Mass fraction] 96 % Services [facility] [employer] Work Phone: [facility] 12-02-2023 01:30-0400 Systolic blood pressure 133 mm[Hg] Services [facility] Work Phone: [facility] 12-01-2023 19:36-0400 Body height 160.02 cm Services [facility] [employer] Work Phone: [facility] 12-01-2023 19:36-0400 Body temperature 98.2 [degF] Services [facility] Work Phone: [facility] 12-01-2023 19:36-0400 Body weight 115.5 kg Services [facility] [employer] Work Phone: [facility] 12-01-2023 11:53-0400 Body temperature 97.88 [degF] [facility] 12-01-2023 11:53-0400 Diastolic blood pressure 82 mm[Hg] [facility] 12-01-2023 11:53-0400 Heart rate 72 /min [facility] 12-01-2023 11:53-0400 Respiratory rate 18 /min [facility] 12-01-2023 11:53-0400 SaO2% (BldA) [Mass fraction] 97 % [facility] 12-01-2023 11:53-0400 Systolic blood pressure 124 mm[Hg] [facility] 11-27-2023 19:47-0400 Diastolic blood pressure 98 mm[Hg] [facility] 11-27-2023 19:47-0400 Heart rate 79 /min [facility] 11-27-2023 19:47-0400 Respiratory rate 18 /min [facility] 11-27-2023 19:47-0400 SaO2% (BldA) [Mass fraction] 98 % [facility] 11-27-2023 19:47-0400 Systolic blood pressure 143 mm[Hg] [facility] 11-27-2023 17:51-0400 Body temperature 98.24 [degF] [facility] 11-27-2023 17:51-0400 Diastolic blood pressure 78 mm[Hg] [facility] 11-27-2023 17:51-0400 Heart rate 103 /min [facility] 11-27-2023 17:51-0400 Respiratory rate 15 /min [facility] 11-27-2023 17:51-0400 SaO2% (BldA) [Mass fraction] 97 % [facility] 11-27-2023 17:51-0400 Systolic blood pressure 120 mm[Hg] [facility] 11-26-2023 23:48-0400 Respiratory rate 18 /min No [facility] 11-26-2023 21:50-0400 Body height 160.02 cm No [facility] 11-26-2023 21:50-0400 Body mass index (BMI) [Ratio] 44.6 kg/m2 No [facility] 11-26-2023 21:50-0400 Body temperature 97.7 [degF] No [facility] 11-26-2023 21:50-0400 Body weight 114.4 kg No [facility] 11-26-2023 21:50-0400 Diastolic blood pressure 91 mm[Hg] No [facility] 11-26-2023 21:50-0400 Heart rate 67 /min No [facility] 11-26-2023 21:50-0400 SaO2% (BldA) [Mass fraction] 98 % No [facility] 11-26-2023 21:50-0400 Systolic blood pressure 150 mm[Hg] No PCP [facility] 11-25-2023 20:33-0400 Diastolic blood pressure 81 mm[Hg] [facility] Work Phone: [facility] 11-25-2023 20:33-0400 Heart rate 78 /min [facility] Work Phone: [facility] 11-25-2023 20:33-0400 Respiratory rate 18 /min [facility] Work Phone: [facility] 11-25-2023 20:33-0400 SaO2% (BldA) [Mass fraction] 97 % [facility] [employer] Work Phone: [facility] 11-25-2023 20:33-0400 Systolic blood pressure 140 mm[Hg] Services [employer] Work Phone: [facility] 11-25-2023 18:54-0400 Body height 160.02 cm Services [employer] Work Phone: [facility] 11-25-2023 18:54-0400 Body temperature 98.2 [degF] Services [facility] [employer] Work Phone: [facility] 11-25-2023 18:54-0400 Body weight 116.7 kg Services [employer] Work Phone: [facility] 11-24-2023 13:42-0400 Body temperature 98.06 [degF] [facility] 11-24-2023 13:42-0400 Diastolic blood pressure 90 mm[Hg] [facility] 11-24-2023 13:42-0400 Heart rate 93 /min [facility] 11-24-2023 13:42-0400 Respiratory rate 19 /min [facility] 11-24-2023 13:42-0400 SaO2% (BldA) [Mass fraction] 98 % [facility] 11-24-2023 13:42-0400 Systolic blood pressure 132 mm[Hg] [facility] 11-10-2023 23:39-0400 Diastolic blood pressure 76 mm[Hg] Services [facility] Work Phone: [facility] 11-10-2023 23:39-0400 Heart rate 97 /min [facility] Work Phone: [facility] 11-10-2023 23:39-0400 Respiratory rate 20 /min [facility] Work Phone: [facility] 11-10-2023 23:39-0400 Systolic blood pressure 158 mm[Hg] Services [facility] Work Phone: [facility] 11-10-2023 22:44-0400 SaO2% (BldA) [Mass fraction] 95 % Services [facility] Work Phone: [facility] 11-10-2023 18:38-0400 Body height 160.02 cm Services [facility] Work Phone: [facility] 11-10-2023 18:38-0400 Body temperature 97.9 [degF] Services [facility] Work Phone: [facility] 11-10-2023 18:38-0400 Body weight 115 kg Services [facility] [employer] Work Phone: [facility] 11-05-2023 19:45-0400 Body temperature 98.06 [degF] Pedro Pablo Chance [facility] 11-05-2023 19:45-0400 Diastolic blood pressure 92 mm[Hg] Pedro Pablo Chance [facility] 11-05-2023 19:45-0400 Heart rate 74 /min Pedro Pablo Chance [facility] 11-05-2023 19:45-0400 Respiratory rate 18 /min Pedro Pablo Chance [facility] 11-05-2023 19:45-0400 SaO2% (BldA) [Mass fraction] 95 % Pedro Pablo Chance [facility] 11-05-2023 19:45-0400 Systolic blood pressure 151 mm[Hg] Pedro Pablo Chance [facility] 10-31-2023 00:00-0400 Diastolic blood pressure 70 mm[Hg] Aaliyah Fischer I, DO [facility] Phone[facility] 10-31-2023 00:00-0400 Heart rate 69 /min Aaliyah iFscher I, DO Work Phone: [facility] 10-31-2023 00:00-0400 Respiratory rate 19 /min Aaliyah Fischer I, DO Work Phone: [facility] 10-31-2023 00:00-0400 SaO2% (BldA) [Mass fraction] 96 % Aaliyah Fischer I, DO Work Phone: [facility] 10-31-2023 00:00-0400 Systolic blood pressure 127 mm[Hg] Aaliyah Fischer I, DO Work Phone: [facility] [employer] 10-30-2023 20:06-0400 Body temperature 97.7 [degF] Aaliyah Fischer I, DO Work Phone: [facility] [employer] 10-30-2023 18:01-0400 Body height 160 cm Aaliyah Fischer I, DO Work Phone: [facility] [employer] 10-30-2023 18:01-0400 Body mass index (BMI) [Ratio] 44.29 kg/m2 Aaliyah Fischer I, DO Work Phone: [facility] [employer] 10-30-2023 18:01-0400 Body weight 113.4 kg Aaliyah Fischer I, DO Work Phone: [facility] [employer] 10-30-2023 12:14-0400 Body temperature 98.24 [degF] Balbina Bryant [facility] 10-30-2023 12:14-0400 Diastolic blood pressure 96 mm[Hg] [facility] 10-30-2023 12:14-0400 Heart rate 91 /min [facility] 10-30-2023 12:14-0400 Respiratory rate 20 /min [facility] 10-30-2023 12:14-0400 SaO2% (BldA) [Mass fraction] 98 % [facility] 10-30-2023 12:14-0400 Systolic blood pressure 146 mm[Hg] [facility] 10-26-2023 02:43-0400 Body temperature 97.7 [degF] Pedro Pablo Chance [facility] 10-26-2023 02:43-0400 Diastolic blood pressure 92 mm[Hg] Pedro Pablo Chance [facility] 10-26-2023 02:43-0400 Heart rate 82 /min Pedro Pablo Chance [facility] 10-26-2023 02:43-0400 Respiratory rate 16 /min Pedro Pablo Chance [facility] 10-26-2023 02:43-0400 SaO2% (BldA) [Mass fraction] 94 % Pedro Pablo Chance [facility] 10-26-2023 02:43-0400 Systolic blood pressure 143 mm[Hg] Pedro Pablo Chance [facility] 10-19-2023 13:04-0400 Body temperature 98.1 [degF] Services [facility] [employer] Work Phone: [facility] 10-19-2023 13:04-0400 Diastolic blood pressure 79 mm[Hg] Services [facility] [employer] Work Phone: [facility] 10-19-2023 13:04-0400 Heart rate 87 /min [facility] [employer] Work Phone: [facility] 10-19-2023 13:04-0400 Respiratory rate 18 /min [facility] Work Phone: [facility] 10-19-2023 13:04-0400 SaO2% (BldA) [Mass fraction] 99 % [facility] Work Phone: [facility] 10-19-2023 13:04-0400 Systolic blood pressure 136 mm[Hg] [facility] Work Phone: [facility] 10-19-2023 11:26-0400 Body height 160.02 cm [facility] Work Phone: [facility] 10-19-2023 11:26-0400 Body weight 113.39 kg [facility] Work Phone: [facility] 10-05-2023 19:56-0400 Diastolic blood pressure 62 mm[Hg] [facility] Work Phone: [facility] 10-05-2023 19:56-0400 Heart rate 87 /min [facility] Work Phone: [facility] 10-05-2023 19:56-0400 Respiratory rate 18 /min [facility] Work Phone: [facility] 10-05-2023 19:56-0400 SaO2% (BldA) [Mass fraction] 98 % [facility] Work Phone: [facility] 10-05-2023 19:56-0400 Systolic blood pressure 134 mm[Hg] [facility] Work Phone: [facility] 10-05-2023 14:36-0400 Body height 163.83 cm [facility] Work Phone: [facility] 10-05-2023 14:36-0400 Body temperature 98 [degF] [facility] Work Phone: [facility] 10-05-2023 14:36-0400 Body weight 115 kg [facility] Work Phone: [facility] 10-04-2023 14:48-0400 Body temperature 98.06 [degF] Jorge Mcintosh [facility] 10-04-2023 14:48-0400 Diastolic blood pressure 75 mm[Hg] Jorge Mcintosh [facility] 10-04-2023 14:48-0400 Heart rate 72 /min Jorge Mcintosh [facility] 10-04-2023 14:48-0400 Respiratory rate 16 /min Jorge Mcintosh [facility] 10-04-2023 14:48-0400 SaO2% (BldA) [Mass fraction] 97 % Jorge Mcintosh [facility] 10-04-2023 14:48-0400 Systolic blood pressure 153 mm[Hg] Jorge Mcintosh [facility] 09-25-2023 11:41-0400 Body temperature 98.24 [degF] [facility] 09-25-2023 11:41-0400 Diastolic blood pressure 105 mm[Hg] [facility] 09-25-2023 11:41-0400 Heart rate 105 /min [facility] 09-25-2023 11:41-0400 Respiratory rate 18 /min [facility] 09-25-2023 11:41-0400 SaO2% (BldA) [Mass fraction] 95 % [facility] 09-25-2023 11:41-0400 Systolic blood pressure 173 mm[Hg] [facility] 09-21-2023 11:15-0400 Body temperature 98.24 [degF] Nikhil Tubbs [facility] 09-21-2023 11:15-0400 Diastolic blood pressure 65 mm[Hg] Nikhil Tubbs [facility] 09-21-2023 11:15-0400 Heart rate 100 /min Nikhil Tubbs [facility] 09-21-2023 11:15-0400 Respiratory rate 18 /min Nikhil Tubbs [facility] 09-21-2023 11:15-0400 SaO2% (BldA) [Mass fraction] 98 % Nikhil Tubbs [facility] 09-21-2023 11:15-0400 Systolic blood pressure 121 mm[Hg] Nikhil Tubbs [facility] 09-20-2023 10:55-0400 Body temperature 97.52 [degF] Jorge Mcintosh [facility] 09-20-2023 10:55-0400 Diastolic blood pressure 85 mm[Hg] Jorge Mcintosh [facility] 09-20-2023 10:55-0400 Heart rate 102 /min Jorge Mcintosh [facility] 09-20-2023 10:55-0400 Respiratory rate 97 /min Jorge Mcintosh [facility] 09-20-2023 10:55-0400 SaO2% (BldA) [Mass fraction] 99 % Jorge Mcintosh [facility] 09-20-2023 10:55-0400 Systolic blood pressure 166 mm[Hg] Jorge Mcintosh [facility] 09-17-2023 17:45-0400 Blood Pressure Location Dax Lira [facility] 09-17-2023 17:45-0400 Body temperature 98.6 [degF] Dax Lira [facility] 09-17-2023 17:45-0400 Diastolic blood pressure 88 mm[Hg] Dax Lira [facility] 09-17-2023 17:45-0400 Heart rate 92 /min Dax Lira [facility] 09-17-2023 17:45-0400 Respiratory rate 16 /min Dax Lira [facility] 09-17-2023 17:45-0400 SaO2% (BldA) [Mass fraction] 98 % Dax Lira [facility] 09-17-2023 17:45-0400 Systolic blood pressure 130 mm[Hg] Dax Lira [facility] 09-10-2023 14:06-0400 Diastolic blood pressure 61 mm[Hg] Benja Lid DO Work Phone: [employer] 09-10-2023 14:06-0400 Systolic blood pressure 140 mm[Hg] Benja Clarkeoud DO Work Phone: [facility] [employer] 09-10-2023 14:02-0400 Body height 160 cm Benja Lid DO Work Phone: [employer] 09-10-2023 14:02-0400 Body mass index (BMI) [Ratio] 38.09 kg/m2 Benja Clarkeoud DO Work Phone: [employer] 09-10-2023 14:02-0400 Body temperature 98.29 [degF] Benja Clarkeoud DO Work Phone: [employer] 09-10-2023 14:02-0400 Body weight 97.52 kg Benja Lid DO Work Phone: [employer] 09-10-2023 14:02-0400 Heart rate 83 /min Benja Radha DO Work Phone: [facility] 09-10-2023 14:02-0400 Respiratory rate 17 /min Benja Lid DO Work Phone: [facility] 09-10-2023 14:02-0400 SaO2% (BldA) [Mass fraction] 97 % Benja Lid DO Work Phone: [facility] 09-09-2023 22:30-0400 Blood Pressure Location Jorge Rodrigueze [facility] 09-09-2023 22:30-0400 Diastolic blood pressure 67 mm[Hg] Jorge Rodrigueze [facility] 09-09-2023 22:30-0400 Heart rate 71 /min Jorge Rodrigueze [facility] 09-09-2023 22:30-0400 Mean blood pressure 87 mm[Hg] Jorge Rodrigueze [facility] 09-09-2023 22:30-0400 Respiratory rate 16 /min Jorge Rodrigueze [facility] 09-09-2023 22:30-0400 SaO2% (BldA) [Mass fraction] 99 % Jorge Rodrigueze [facility] 09-09-2023 22:30-0400 Systolic blood pressure 126 mm[Hg] Jorge Rodrigueze [facility] 09-09-2023 21:30-0400 Blood Pressure Location Jorge Rodrigueze [facility] 09-09-2023 21:30-0400 Diastolic blood pressure 76 mm[Hg] Jorge Rodrigueze [facility] 09-09-2023 21:30-0400 Heart rate 80 /min Jorge Rodrigueze [facility] 09-09-2023 21:30-0400 Mean blood pressure 96 mm[Hg] Jorge Mcintosh [facility] 09-09-2023 21:30-0400 Respiratory rate 16 /min Jorge Mcintosh [facility] 09-09-2023 21:30-0400 SaO2% (BldA) [Mass fraction] 98 % Jorge Mcintosh [facility] 09-09-2023 21:30-0400 Systolic blood pressure 136 mm[Hg] Jorge Mcintosh [facility] 09-09-2023 21:00-0400 Diastolic blood pressure 62 mm[Hg] Jorge Mcintosh [facility] 09-09-2023 21:00-0400 Heart rate 79 /min Jorge Mcintosh [facility] 09-09-2023 21:00-0400 SaO2% (BldA) [Mass fraction] 94 % Jorge Mcintosh [facility] 09-09-2023 19:12-0400 Heart rate 96 /min Jorge Mcintosh [facility] 09-08-2023 18:37-0400 Body height 162.56 cm Services [employer] Work Phone: [facility] 09-08-2023 18:37-0400 Body temperature 98.3 [degF] [facility] [employer] Work Phone: [facility] 09-08-2023 18:37-0400 Body weight 116.3 kg Services [employer] Work Phone: [facility] 09-08-2023 18:37-0400 Diastolic blood pressure 89 mm[Hg] Services [employer] Work Phone: [facility] 09-08-2023 18:37-0400 Heart rate 97 /min Services [employer] Work Phone: [facility] 09-08-2023 18:37-0400 Respiratory rate 19 /min Services [facility] [employer] Work Phone: [facility] 09-08-2023 18:37-0400 SaO2% (BldA) [Mass fraction] 99 % Services [facility] [employer] Work Phone: [facility] 09-08-2023 18:37-0400 Systolic blood pressure 162 mm[Hg] Services [facility] [employer] Work Phone: [facility] 09-06-2023 21:10-0400 Body temperature 97.88 [degF] Pedro Pablo Chance [facility] 09-06-2023 21:10-0400 Diastolic blood pressure 82 mm[Hg] Pedro Pablo Chance [facility] 09-06-2023 21:10-0400 Heart rate 79 /min Pedro Pablo Chance [facility] 09-06-2023 21:10-0400 Respiratory rate 17 /min Pedro Pablo Chance [facility] 09-06-2023 21:10-0400 SaO2% (BldA) [Mass fraction] 98 % Pedro Pablo Chance [facility] 09-06-2023 21:10-0400 Systolic blood pressure 152 mm[Hg] Pedro Pablo Chance [facility] 09-02-2023 18:07-0400 Body temperature 97.88 [degF] Jorge Rodrigueze [facility] 09-02-2023 18:07-0400 Diastolic blood pressure 79 mm[Hg] Jorge Arnaldo [facility] 09-02-2023 18:07-0400 Heart rate 94 /min Jorge Arnaldo [facility] 09-02-2023 18:07-0400 Respiratory rate 16 /min Jorge Mcintosh [facility] 09-02-2023 18:07-0400 SaO2% (BldA) [Mass fraction] 96 % Jorge Mcintosh [facility] 09-02-2023 18:07-0400 Systolic blood pressure 136 mm[Hg] Jorge Mcintosh [facility] 08-30-2023 19:17-0400 Diastolic blood pressure 92 mm[Hg] Nihkil Arley [facility] 08-30-2023 19:17-0400 Heart rate 94 /min Nikhil Arley [facility] 08-30-2023 19:17-0400 Mean blood pressure 112 mm[Hg] Nikhil Arley [facility] 08-30-2023 19:17-0400 Respiratory rate 17 /min Nikhil Arley [facility] 08-30-2023 19:17-0400 SaO2% (BldA) [Mass fraction] 97 % Nikhil Arley [facility] 08-30-2023 19:17-0400 Systolic blood pressure 151 mm[Hg] Nikhil Arley [facility] 08-30-2023 18:13-0400 Body temperature 98.24 [degF] Nikhil Arley [facility] 08-30-2023 18:13-0400 Diastolic blood pressure 100 mm[Hg] Nikhil Arley [facility] 08-30-2023 18:13-0400 Heart rate 92 /min Nikhil Arley [facility] 08-30-2023 18:13-0400 Respiratory rate 18 /min Nikhil Arley [facility] 08-30-2023 18:13-0400 SaO2% (BldA) [Mass fraction] 100 % Nikhil Arley [facility] 08-30-2023 18:13-0400 Systolic blood pressure 165 mm[Hg] Nikhil Arley [facility] 08-27-2023 13:20-0400 Body height 160 cm Chirag Ivelisse HIM SPECIALIST[employer] Work Phone: [facility] 08-27-2023 13:20-0400 Body mass index (BMI) [Ratio] 44.29 kg/m2 Chirag Amorki HIM SPECIALIST[employer] Work Phone: [facility] 08-27-2023 13:20-0400 Body weight 113.4 kg Chirag Amorki HIM SPECIALIST[employer] Work Phone: [facility] 08-27-2023 13:20-0400 Diastolic blood pressure 88 mm[Hg] Chirag Amorki HIM SPECIALIST-[employer] PRO[employer] Work Phone: [facility] 08-27-2023 13:20-0400 Heart rate 88 /min Chirag Amorki HIM SPECIALIST[employer] Work Phone: [facility] 08-27-2023 13:20-0400 Respiratory rate 18 /min Chirag Reynoso HIM SPECIALIST-[employer] Work Phone: [facility] 08-27-2023 13:20-0400 Systolic blood pressure 132 mm[Hg] Chirag Reynoso HIM SPECIALIST-[employer] PRO[employer] Work Phone: [facility] 08-21-2023 10:06-0400 Body temperature 98.8 [degF] Elke Adams MD Work Phone: [facility] 08-21-2023 10:06-0400 Diastolic blood pressure 62 mm[Hg] Elke Adams MD Work Phone: [facility] 08-21-2023 10:06-0400 Respiratory rate 16 /min Elke Adams MD Work Phone: [facility] 08-21-2023 10:06-0400 SaO2% (BldA) [Mass fraction] 93 % Elke Adams MD Work Phone: [facility] 08-21-2023 10:06-0400 Systolic blood pressure 116 mm[Hg] Elke Adams MD Work Phone: [facility] 08-21-2023 06:30-0400 Body height 160 cm Elke Adams MD Work Phone: [facility] 08-21-2023 06:30-0400 Body mass index (BMI) [Ratio] 44.32 kg/m2 Elke Adams MD Work Phone: [facility] 08-21-2023 06:30-0400 Body weight 113.5 kg Elke Adams MD Work Phone: [facility] 08-21-2023 06:30-0400 Heart rate 87 /min Elke Adams MD Work Phone: [facility] 08-16-2023 00:55-0400 Diastolic blood pressure 90 mm[Hg] [facility] 08-16-2023 00:55-0400 Heart rate 64 /min [facility] 08-16-2023 00:55-0400 Mean blood pressure 111 mm[Hg] [facility] 08-16-2023 00:55-0400 Respiratory rate 15 /min [facility] 08-16-2023 00:55-0400 SaO2% (BldA) [Mass fraction] 93 % [facility] 08-16-2023 00:55-0400 Systolic blood pressure 153 mm[Hg] [facility] 08-16-2023 00:07-0400 Diastolic blood pressure 88 mm[Hg] [facility] 08-16-2023 00:07-0400 Heart rate 73 /min [facility] 08-16-2023 00:07-0400 Mean blood pressure 105 mm[Hg] [facility] 08-16-2023 00:07-0400 Respiratory rate 17 /min [facility] 08-16-2023 00:07-0400 SaO2% (BldA) [Mass fraction] 93 % [facility] 08-16-2023 00:07-0400 Systolic blood pressure 138 mm[Hg] [facility] 08-15-2023 23:42-0400 Diastolic blood pressure 80 mm[Hg] [facility] 08-15-2023 23:42-0400 Heart rate 79 /min [facility] 08-15-2023 23:42-0400 Mean blood pressure 96 mm[Hg] [facility] 08-15-2023 23:42-0400 Respiratory rate 15 /min [facility] 08-15-2023 23:42-0400 SaO2% (BldA) [Mass fraction] 94 % [facility] 08-15-2023 23:42-0400 Systolic blood pressure 129 mm[Hg] [facility] 08-15-2023 22:22-0400 Body temperature 98.06 [degF] [facility] 08-15-2023 22:22-0400 Heart rate 88 /min [facility] 08-14-2023 15:16-0400 Diastolic blood pressure 58 mm[Hg] Domenic Sher [facility] 08-14-2023 15:16-0400 Heart rate 86 /min Domenic Sher [facility] 08-14-2023 15:16-0400 Mean blood pressure 88 mm[Hg] Domenic Sher [facility] 08-14-2023 15:16-0400 Respiratory rate 16 /min Domenic Sher [facility] 08-14-2023 15:16-0400 Systolic blood pressure 148 mm[Hg] Domenic Sher [facility] 08-12-2023 20:51-0400 Body temperature 98.24 [degF] Kaylinn Dokken [facility] 08-12-2023 20:51-0400 Diastolic blood pressure 83 mm[Hg] Kaylinn Dokken [facility] 08-12-2023 20:51-0400 Heart rate 83 /min Kaylinn Dokken [facility] 08-12-2023 20:51-0400 Respiratory rate 18 /min Kaylinn Dokken [facility] 08-12-2023 20:51-0400 SaO2% (BldA) [Mass fraction] 95 % Kaylinn Dokken [facility] 08-12-2023 20:51-0400 Systolic blood pressure 146 mm[Hg] Kaylinn Dokken [facility] 08-09-2023 23:20-0400 Body temperature 97.7 [degF] Keke Payne MD Work Phone: [facility] [employer] 08-09-2023 23:20-0400 Diastolic blood pressure 78 mm[Hg] Keke Payne MD Work Phone: [facility] [employer] 08-09-2023 23:20-0400 Heart rate 79 /min Keke Payne MD Work Phone: [facility] [employer] 08-09-2023 23:20-0400 Respiratory rate 18 /min Keke Payne MD Work Phone: [facility] 08-09-2023 23:20-0400 SaO2% (BldA) [Mass fraction] 95 % Keke Payne MD Work Phone: [facility] 08-09-2023 23:20-0400 Systolic blood pressure 151 mm[Hg] Keke Payne MD Work Phone: [facility] 08-09-2023 21:46-0400 Body mass index (BMI) [Ratio] 44.29 kg/m2 Keke Payne MD Work Phone: [facility] 08-09-2023 21:46-0400 Body weight 113.4 kg Keke Payne MD Work Phone: [facility] 08-05-2023 20:15-0400 Body temperature 97.88 [degF] Pedro Pablo Chance [facility] 08-05-2023 20:15-0400 Diastolic blood pressure 85 mm[Hg] Pedro Pablo Chance [facility] 08-05-2023 20:15-0400 Heart rate 98 /min Pedro Pablo Chance [facility] 08-05-2023 20:15-0400 Respiratory rate 16 /min Pedro Pablo Chance [facility] 08-05-2023 20:15-0400 SaO2% (BldA) [Mass fraction] 94 % Pedro Pablo Chance [facility] 08-05-2023 20:15-0400 Systolic blood pressure 150 mm[Hg] Pedro Pablo Chance [facility] 08-02-2023 11:52-0400 Body temperature 97.88 [degF] Nikhil Tubbs [facility] 08-02-2023 11:52-0400 Diastolic blood pressure 68 mm[Hg] Nikhil Tubbs [facility] 08-02-2023 11:52-0400 Heart rate 86 /min Nikhil Tubbs [facility] 08-02-2023 11:52-0400 Respiratory rate 20 /min Nikhil Tubbs [facility] 08-02-2023 11:52-0400 SaO2% (BldA) [Mass fraction] 93 % Nikhil Tubbs [facility] 08-02-2023 11:52-0400 Systolic blood pressure 161 mm[Hg] Nikhil Tubbs [facility] 07-31-2023 15:29-0400 Diastolic blood pressure 86 mm[Hg] [facility] 07-31-2023 15:29-0400 Heart rate 75 /min [facility] 07-31-2023 15:29-0400 Mean blood pressure 103 mm[Hg] [facility] 07-31-2023 15:29-0400 Respiratory rate 16 /min [facility] 07-31-2023 15:29-0400 SaO2% (BldA) [Mass fraction] 98 % [facility] 07-31-2023 15:29-0400 Systolic blood pressure 138 mm[Hg] [facility] 07-31-2023 14:22-0400 Body temperature 98.06 [degF] [facility] 07-31-2023 14:22-0400 Diastolic blood pressure 87 mm[Hg] [facility] 07-31-2023 14:22-0400 Heart rate 88 /min [facility] 07-31-2023 14:22-0400 Mean blood pressure 101 mm[Hg] [facility] 07-31-2023 14:22-0400 Respiratory rate 18 /min [facility] 07-31-2023 14:22-0400 SaO2% (BldA) [Mass fraction] 96 % [facility] 07-31-2023 14:22-0400 Systolic blood pressure 130 mm[Hg] [facility] 07-26-2023 11:06-0400 Body temperature 98.24 [degF] Jogre Mcintosh [facility] 07-26-2023 11:06-0400 Diastolic blood pressure 66 mm[Hg] Jorge Mcintosh [facility] 07-26-2023 11:06-0400 Heart rate 83 /min Jorge Mcintosh [facility] 07-26-2023 11:06-0400 Respiratory rate 19 /min Jorge Mcintosh [facility] 07-26-2023 11:06-0400 SaO2% (BldA) [Mass fraction] 97 % Jorge Mcintosh [facility] 07-26-2023 11:06-0400 Systolic blood pressure 119 mm[Hg] Jorge Mcintosh [facility] 07-17-2023 09:43-0400 Diastolic blood pressure 90 mm[Hg] Cheyanne Rosas [facility] 07-17-2023 09:43-0400 Mean blood pressure 107 mm[Hg] Cheyanne Rosas [facility] 07-17-2023 09:43-0400 Systolic blood pressure 140 mm[Hg] Cheyanne Rosas [facility] 07-17-2023 07:48-0400 Blood Pressure Location Cheyanne Rosas [facility] 07-17-2023 07:48-0400 Body temperature 97.7 [degF] Cheyanne Rosas [facility] 07-17-2023 07:48-0400 Diastolic blood pressure 78 mm[Hg] Cheyanne Rosas [facility] 07-17-2023 07:48-0400 Heart rate 91 /min Cheyanne Rosas [facility] 07-17-2023 07:48-0400 Respiratory rate 18 /min Cheyanne Rosas [facility] 07-17-2023 07:48-0400 SaO2% (BldA) [Mass fraction] 97 % Cheyanne Rosas [facility] 07-17-2023 07:48-0400 Systolic blood pressure 144 mm[Hg] Cheyanne Rosas [facility] 07-15-2023 13:42-0400 Diastolic blood pressure 86 mm[Hg] Dory Shepherd [facility] 07-15-2023 13:42-0400 Heart rate 76 /min Dory Shepherd [facility] 07-15-2023 13:42-0400 Mean blood pressure 103 mm[Hg] Dory Shepherd [facility] 07-15-2023 13:42-0400 Respiratory rate 15 /min Dory Shepherd [facility] 07-15-2023 13:42-0400 Systolic blood pressure 138 mm[Hg] Dory Shepherd [facility] 07-14-2023 11:37-0400 Body temperature 97.52 [degF] Nikhil Tubbs [facility] 07-14-2023 11:37-0400 Diastolic blood pressure 80 mm[Hg] Nikhil Tubbs [facility] 07-14-2023 11:37-0400 Heart rate 98 /min Nikhil Tubbs [facility] 07-14-2023 11:37-0400 Respiratory rate 18 /min Nikhil Tubbs [facility] 07-14-2023 11:37-0400 SaO2% (BldA) [Mass fraction] 99 % Nikhil Tubbs [facility] 07-14-2023 11:37-0400 Systolic blood pressure 124 mm[Hg] Nikhil Tubbs [facility] 07-11-2023 09:23-0400 Body temperature 98.24 [degF] [facility] 07-11-2023 09:23-0400 Diastolic blood pressure 82 mm[Hg] [facility] 07-11-2023 09:23-0400 Heart rate 92 /min [facility] 07-11-2023 09:23-0400 Respiratory rate 18 /min [facility] 07-11-2023 09:23-0400 SaO2% (BldA) [Mass fraction] 99 % [facility] 07-11-2023 09:23-0400 Systolic blood pressure 151 mm[Hg] [facility] 07-06-2023 18:22-0400 Body temperature 97.88 [degF] [facility] 07-06-2023 18:22-0400 Diastolic blood pressure 99 mm[Hg] [facility] 07-06-2023 18:22-0400 Heart rate 90 /min [facility] 07-06-2023 18:22-0400 Respiratory rate 18 /min [facility] 07-06-2023 18:22-0400 SaO2% (BldA) [Mass fraction] 97 % [facility] 07-06-2023 18:22-0400 Systolic blood pressure 159 mm[Hg] [facility] 07-04-2023 10:35-0400 Body height 160.02 cm Services [facility] Work Phone: [facility] 07-04-2023 10:35-0400 Body weight 117.5 kg [facility] Work Phone: [facility] 07-04-2023 10:34-0400 Body temperature 97.5 [degF] [facility] Work Phone: [facility] 07-04-2023 10:34-0400 Diastolic blood pressure 78 mm[Hg] Services [employer] Work Phone: [facility] 07-04-2023 10:34-0400 Heart rate 98 /min [facility] Work Phone: [facility] 07-04-2023 10:34-0400 Respiratory rate 22 /min Services [employer] Work Phone: [facility] 07-04-2023 10:34-0400 SaO2% (BldA) [Mass fraction] 98 % Services [employer] Work Phone: [facility] 07-04-2023 10:34-0400 Systolic blood pressure 173 mm[Hg] Services [employer] Work Phone: [facility] 06-29-2023 13:37-0400 Body temperature 98.24 [degF] Nikhil Tubbs [facility] 06-29-2023 13:37-0400 Diastolic blood pressure 89 mm[Hg] Nikhil Tubbs [facility] 06-29-2023 13:37-0400 Heart rate 84 /min Nikhil Tubbs [facility] 06-29-2023 13:37-0400 Respiratory rate 16 /min Nikhil Tubbs [facility] 06-29-2023 13:37-0400 SaO2% (BldA) [Mass fraction] 97 % Nikhil Tubbs [facility] 06-29-2023 13:37-0400 Systolic blood pressure 153 mm[Hg] Nikhil Tubbs [facility] 06-27-2023 11:52-0400 Body temperature 97.7 [degF] Nikhil Tubbs [facility] 06-27-2023 11:52-0400 Diastolic blood pressure 82 mm[Hg] Nikhil Tubbs [facility] 06-27-2023 11:52-0400 Heart rate 87 /min Nikhil Tubbs [facility] 06-27-2023 11:52-0400 Respiratory rate 18 /min Nikhil Tubbs [facility] 06-27-2023 11:52-0400 SaO2% (BldA) [Mass fraction] 96 % Nikhil Tubbs [facility] 06-27-2023 11:52-0400 Systolic blood pressure 146 mm[Hg] Nikhil Tubbs [facility] 06-26-2023 16:39-0400 Body height 160.02 cm HIM SPECIALIST Joshua Mariaelena Work Phone: [facility] 06-26-2023 16:39-0400 Body temperature 97.6 [degF] HIM SPECIALIST Joshua Mariaelena Work Phone: [facility] 06-26-2023 16:39-0400 Body weight 117 kg HIM SPECIALIST Joshua Mariaelena Work Phone: [facility] 06-26-2023 16:39-0400 Diastolic blood pressure 72 mm[Hg] HIM SPECIALIST Joshua Mariaelena Work Phone: [facility] 06-26-2023 16:39-0400 Heart rate 92 /min HIM SPECIALISTRadha Ferrell Work Phone: [facility] 06-26-2023 16:39-0400 Respiratory rate 21 /min HIM SPECIALISTRadha Ferrell Work Phone: [facility] 06-26-2023 16:39-0400 SaO2% (BldA) [Mass fraction] 97 % HIM SPECIALISTRadha Ferrell Work Phone: [facility] 06-26-2023 16:39-0400 Systolic blood pressure 139 mm[Hg] HIM SPECIALISTRadha Ferrell Work Phone: [facility] 06-24-2023 11:30-0400 Diastolic blood pressure 78 mm[Hg] [facility] 06-24-2023 11:30-0400 Heart rate 78 /min [facility] 06-24-2023 11:30-0400 Mean blood pressure 87 mm[Hg] [facility] 06-24-2023 11:30-0400 Respiratory rate 18 /min [facility] 06-24-2023 11:30-0400 SaO2% (BldA) [Mass fraction] 97 % [facility] 06-24-2023 11:30-0400 Systolic blood pressure 106 mm[Hg] [facility] 06-24-2023 10:30-0400 Diastolic blood pressure 75 mm[Hg] [facility] 06-24-2023 10:30-0400 Heart rate 80 /min [facility] 06-24-2023 10:30-0400 Mean blood pressure 98 mm[Hg] [facility] 06-24-2023 10:30-0400 Respiratory rate 18 /min [facility] 06-24-2023 10:30-0400 SaO2% (BldA) [Mass fraction] 97 % [facility] 06-24-2023 10:30-0400 Systolic blood pressure 143 mm[Hg] [facility] 06-24-2023 09:45-0400 Body temperature 97.7 [degF] [facility] 06-24-2023 09:45-0400 Diastolic blood pressure 84 mm[Hg] [facility] 06-24-2023 09:45-0400 Heart rate 103 /min [facility] 06-24-2023 09:45-0400 Respiratory rate 17 /min [facility] 06-24-2023 09:45-0400 SaO2% (BldA) [Mass fraction] 97 % [facility] 06-24-2023 09:45-0400 Systolic blood pressure 137 mm[Hg] [facility] 06-22-2023 19:05-0400 Diastolic blood pressure 95 mm[Hg] Nikhil Tubbs [facility] 06-22-2023 19:05-0400 Heart rate 94 /min Nikhil Tubbs [facility] 06-22-2023 19:05-0400 Mean blood pressure 108 mm[Hg] Nikhil Tubbs [facility] 06-22-2023 19:05-0400 SaO2% (BldA) [Mass fraction] 94 % Nikhil Tubbs [facility] 06-22-2023 19:05-0400 Systolic blood pressure 135 mm[Hg] Nikhil Tubbs [facility] 06-22-2023 18:02-0400 Diastolic blood pressure 76 mm[Hg] Nikhil Tubbs [facility] 06-22-2023 18:02-0400 Heart rate 95 /min Nikhil Tubbs [facility] 06-22-2023 18:02-0400 Mean blood pressure 93 mm[Hg] Nikhil Tubbs [facility] 06-22-2023 18:02-0400 Systolic blood pressure 126 mm[Hg] Nikhil Tubbs [facility] 06-22-2023 17:00-0400 Blood Pressure Location Nikhil Tubbs [facility] 06-22-2023 17:00-0400 Diastolic blood pressure 80 mm[Hg] Nikhil Tubbs [facility] 06-22-2023 17:00-0400 Heart rate 93 /min Nikhil Tubbs [facility] 06-22-2023 17:00-0400 Mean blood pressure 97 mm[Hg] Nikhil Arley [facility] 06-22-2023 17:00-0400 Respiratory rate 18 /min Nikhil Tubbs [facility] 06-22-2023 17:00-0400 SaO2% (BldA) [Mass fraction] 96 % Nikhil Tubbs [facility] 06-22-2023 17:00-0400 Systolic blood pressure 130 mm[Hg] Nikhil Arley [facility] 06-22-2023 16:00-0400 SaO2% (BldA) [Mass fraction] 98 % Nikhil Arley [facility] 06-22-2023 15:20-0400 Respiratory rate 17 /min Nikhil Arley [facility] 06-22-2023 14:21-0400 Body temperature 98.24 [degF] Nikhil Tubbs [facility] 03-30-2024 14:21-0400 Heart rate 109 /min Nikhil Tubbs [facility] 06-22-2023 14:21-0400 Respiratory rate 16 /min Nikhil Tubbs [facility] 06-15-2023 18:05-0400 Body temperature 97.7 [degF] [facility] 06-15-2023 18:05-0400 Diastolic blood pressure 99 mm[Hg] [facility] 06-15-2023 18:05-0400 Heart rate 79 /min [facility] 06-15-2023 18:05-0400 Respiratory rate 18 /min [facility] 06-15-2023 18:05-0400 SaO2% (BldA) [Mass fraction] 99 % [facility] 06-15-2023 18:05-0400 Systolic blood pressure 125 mm[Hg] [facility] 06-15-2023 16:03-0400 Diastolic blood pressure 80 mm[Hg] Slime Oberhauser DO Work Phone: [facility] 06-15-2023 16:03-0400 Heart rate 84 /min Slime Oberhauser DO Work Phone: [facility] 06-15-2023 16:03-0400 Respiratory rate 16 /min Slime Oberhauser DO Work Phone: [facility] 06-15-2023 16:03-0400 SaO2% (BldA) [Mass fraction] 98 % Slime Oberhauser DO Work Phone: [facility] 06-15-2023 16:03-0400 Systolic blood pressure 128 mm[Hg] Slime Oberhauser DO Work Phone: [facility] 06-15-2023 14:37-0400 Body height 160 cm Slime Oberhauser DO Work Phone: [facility] 06-15-2023 14:37-0400 Body mass index (BMI) [Ratio] 44.29 kg/m2 Slime Oberhauser DO Work Phone: [facility] 06-15-2023 14:37-0400 Body temperature 97 [degF] Slime Oberhauser DO Work Phone: [facility] 06-15-2023 14:37-0400 Body weight 113.4 kg Slime Oberhauser DO Work Phone: [facility] 06-11-2023 18:54-0400 Body temperature 98.24 [degF] Kaylinn Dokken [facility] 06-11-2023 18:54-0400 Diastolic blood pressure 80 mm[Hg] Kaylinn Dokken [facility] 06-11-2023 18:54-0400 Heart rate 92 /min Kaylinn Dokken [facility] 06-11-2023 18:54-0400 Respiratory rate 16 /min Kaylinn Dokken [facility] 06-11-2023 18:54-0400 SaO2% (BldA) [Mass fraction] 98 % Kaylinn Dokken [facility] 06-11-2023 18:54-0400 Systolic blood pressure 135 mm[Hg] Kaylinn Dokken [facility] 06-08-2023 18:35-0400 Diastolic blood pressure 86 mm[Hg] Allyson Nicole DO Work Phone: [facility] 06-08-2023 18:35-0400 Heart rate 86 /min Allyson Nicole DO Work Phone: [facility] 06-08-2023 18:35-0400 Respiratory rate 16 /min Allyson Nicole DO Work Phone: [employer] 06-08-2023 18:35-0400 SaO2% (BldA) [Mass fraction] 98 % Allyson Nicole DO Work Phone: [employer] 06-08-2023 18:35-0400 Systolic blood pressure 135 mm[Hg] Allyson Nicole DO Work Phone: [employer] 06-08-2023 17:41-0400 Body height 160 cm lAlyson Nicole DO Work Phone: [employer] 06-08-2023 17:41-0400 Body mass index (BMI) [Ratio] 44.29 kg/m2 Allyson Nicole DO Work Phone: [facility] [employer] 06-08-2023 17:41-0400 Body temperature 97.81 [degF] Allyson Nicole DO Work Phone: [facility] [employer] 06-08-2023 17:41-0400 Body weight 113.4 kg Allyson Nicole DO Work Phone: [facility] [employer] 06-05-2023 08:13-0400 Body height 160 cm Elke Adams MD Work Phone: [facility] 06-05-2023 08:13-0400 Body mass index (BMI) [Ratio] 44.29 kg/m2 Elke Adams MD Work Phone: [facility] 06-05-2023 08:13-0400 Body weight 113.4 kg Elke Adams MD Work Phone: [facility] 06-05-2023 08:13-0400 Diastolic blood pressure 88 mm[Hg] Elke Adams MD Work Phone: [facility] 06-05-2023 08:13-0400 Heart rate 85 /min Elke Adams MD Work Phone: [facility] 06-05-2023 08:13-0400 Respiratory rate 20 /min Elke Adams MD Work Phone: [facility] 06-05-2023 08:13-0400 Systolic blood pressure 133 mm[Hg] Elke Adams MD Work Phone: [facility] 06-03-2023 19:07-0400 Body temperature 98.06 [degF] Jorge Mcintosh [facility] 06-03-2023 19:07-0400 Diastolic blood pressure 88 mm[Hg] Jorge Mcintosh [facility] 06-03-2023 19:07-0400 Heart rate 71 /min Jorge Mcintosh [facility] 06-03-2023 19:07-0400 Respiratory rate 16 /min Jorge Mcintosh [facility] 06-03-2023 19:07-0400 SaO2% (BldA) [Mass fraction] 96 % Jorge Mcintosh [facility] 06-03-2023 19:07-0400 Systolic blood pressure 132 mm[Hg] Jorge Mcintosh [facility] 06-01-2023 16:07-0500 Diastolic blood pressure 81 mm[Hg] ELIZABETH Lewis Mariaelena Work Phone: [facility] 06-01-2023 16:07-0500 Heart rate 76 /min HIM SPECIALIST Joshua Mariaelena Work Phone: [facility] 06-01-2023 16:07-0500 Respiratory rate 18 /min HIM SPECIALIST Joshua Mariaelena Work Phone: [facility] 06-01-2023 16:07-0500 SaO2% (BldA) [Mass fraction] 96 % HIM SPECIALIST Joshua Mariaelena Work Phone: [facility] 06-01-2023 16:07-0500 Systolic blood pressure 141 mm[Hg] HIM SPECIALIST Joshua Mariaelena Work Phone: [facility] 06-01-2023 11:49-0500 Body height 160.02 cm ELIZABETH Ferrell Work Phone: [facility] 06-01-2023 11:49-0500 Body temperature 97.9 [degF] ELIZABETH Ferrell Work Phone: [facility] 06-01-2023 11:49-0500 Body weight 97.52 kg ELIZABETH Ferrell Work Phone: [facility] 05-31-2023 18:12-0500 Diastolic blood pressure 104 mm[Hg] Jorge Mcintosh [facility] 05-31-2023 18:12-0500 Heart rate 71 /min Jorge Rodrigueze [facility] 05-31-2023 18:12-0500 Mean blood pressure 117 mm[Hg] Jorge Rodrigueze [facility] 05-31-2023 18:12-0500 Respiratory rate 18 /min Jorge Rodrigueze [facility] 05-31-2023 18:12-0500 SaO2% (BldA) [Mass fraction] 97 % Jorge Rodrigueze [facility] 05-31-2023 18:12-0500 Systolic blood pressure 143 mm[Hg] Jorge Rodrigueze [facility] 05-31-2023 17:01-0500 Diastolic blood pressure 70 mm[Hg] Jorge Rodrigueze [facility] 05-31-2023 17:01-0500 Heart rate 85 /min Jorge Rodrigueze [facility] 05-31-2023 17:01-0500 Mean blood pressure 91 mm[Hg] Jorge Arnaldo [facility] 05-31-2023 17:01-0500 Respiratory rate 18 /min Jorge Rodrigueze [facility] 05-31-2023 17:01-0500 SaO2% (BldA) [Mass fraction] 96 % Jorge Mcintosh [facility] 05-31-2023 17:01-0500 Systolic blood pressure 133 mm[Hg] Jorge Mcintosh [facility] 05-31-2023 16:41-0500 Body temperature 98.6 [degF] Jorge Mcintosh [facility] 05-31-2023 16:41-0500 Diastolic blood pressure 91 mm[Hg] Jorge Mcintosh [facility] 05-31-2023 16:41-0500 Heart rate 88 /min Jorge Mcintosh [facility] 05-31-2023 16:41-0500 Respiratory rate 18 /min Jorge Mcintosh [facility] 05-31-2023 16:41-0500 SaO2% (BldA) [Mass fraction] 96 % Jorge Mcintosh [facility] 05-31-2023 16:41-0500 Systolic blood pressure 155 mm[Hg] Jorge Mcintosh [facility] 05-26-2023 19:35-0500 Body temperature 97.7 [degF] Pedro Pablo Chance [facility] 05-26-2023 19:35-0500 Diastolic blood pressure 81 mm[Hg] Pedro Pablo Chance [facility] 05-26-2023 19:35-0500 Heart rate 94 /min Pedro Pablo Chance [facility] 05-26-2023 19:35-0500 Respiratory rate 16 /min Pedro Pablo Chance [facility] 05-26-2023 19:35-0500 SaO2% (BldA) [Mass fraction] 98 % Pedro Pablo Fletcher [facility] 05-26-2023 19:35-0500 Systolic blood pressure 147 mm[Hg] Pedro Pablo Fletcher [facility] 05-25-2023 14:00-0500 Body height 160.02 cm HIM SPECIALISTRadha EllingtonJoshua Mariaelena Work Phone: [facility] 05-25-2023 14:00-0500 Body temperature 97.7 [degF] HIM SPECIALIST Joshua Mariaelena Work Phone: [facility] 05-25-2023 14:00-0500 Body weight 116 kg HIM SPECIALIST Joshua Mariaelena Work Phone: [facility] 05-25-2023 14:00-0500 Diastolic blood pressure 86 mm[Hg] HIM SPECIALIST Joshua Mariaelena Work Phone: [facility] 05-25-2023 14:00-0500 Heart rate 89 /min HIM SPECIALIST Joshua Mariaelena Work Phone: [facility] 05-25-2023 14:00-0500 Respiratory rate 16 /min HIM SPECIALIST Joshua Mariaelena Work Phone: [facility] 05-25-2023 14:00-0500 SaO2% (BldA) [Mass fraction] 96 % HIM SPECIALIST Joshua Mariaelena Work Phone: [facility] 05-25-2023 14:00-0500 Systolic blood pressure 134 mm[Hg] HIM SPECIALIST Joshua Mariaelena Work Phone: [facility] 05-24-2023 19:20-0500 Body temperature 97.7 [degF] Nikhil Tubbs [facility] 05-24-2023 19:20-0500 Diastolic blood pressure 95 mm[Hg] Nikhil Tubbs [facility] 05-24-2023 19:20-0500 Heart rate 98 /min Nikhil Tubbs [facility] 05-24-2023 19:20-0500 Respiratory rate 16 /min Nikhil Tubbs [facility] 05-24-2023 19:20-0500 SaO2% (BldA) [Mass fraction] 96 % Nikhil Tubbs [facility] 05-24-2023 19:20-0500 Systolic blood pressure 151 mm[Hg] Nikhil Tubbs [facility] 05-19-2023 12:01-0500 Body height 160.02 cm PHYSICIAN NO [facility] 05-19-2023 12:01-0500 Body temperature 98.1 [degF] PHYSICIAN NO [facility] 05-19-2023 12:01-0500 Body weight 115 kg PHYSICIAN NO [facility] 05-19-2023 12:01-0500 Diastolic blood pressure 80 mm[Hg] PHYSICIAN NO [facility] 05-19-2023 12:01-0500 Heart rate 97 /min PHYSICIAN NO [facility] 05-19-2023 12:01-0500 Respiratory rate 18 /min PHYSICIAN NO [facility] 05-19-2023 12:01-0500 SaO2% (BldA) [Mass fraction] 98 % PHYSICIAN NO [facility] 05-19-2023 12:01-0500 Systolic blood pressure 165 mm[Hg] PHYSICIAN NO [facility] 05-16-2023 16:20-0500 Body temperature 98.06 [degF] Nikhil Tubbs [facility] 05-16-2023 16:20-0500 Diastolic blood pressure 93 mm[Hg] Nikhil Tubbs [facility] 05-16-2023 16:20-0500 Heart rate 86 /min Nikhil Tubbs [facility] 05-16-2023 16:20-0500 Respiratory rate 16 /min Nikhil Tubbs [facility] 05-16-2023 16:20-0500 SaO2% (BldA) [Mass fraction] 100 % Nikhil Arley [facility] 05-16-2023 16:20-0500 Systolic blood pressure 162 mm[Hg] Nikhil Arley [facility] 05-14-2023 10:24-0500 Body temperature 97.52 [degF] Jorge Mcintosh [facility] 05-14-2023 10:24-0500 Diastolic blood pressure 86 mm[Hg] Jorge Mcintosh [facility] 05-14-2023 10:24-0500 Heart rate 85 /min Jorge Mcintosh [facility] 05-14-2023 10:24-0500 Respiratory rate 18 /min Jorge Mcintosh [facility] 05-14-2023 10:24-0500 SaO2% (BldA) [Mass fraction] 96 % Jorge Mcintosh [facility] 05-14-2023 10:24-0500 Systolic blood pressure 143 mm[Hg] Jorge Mcintosh [facility] 05-12-2023 10:19-0500 Body temperature 97.88 [degF] Nikhil Tubbs [facility] 05-12-2023 10:19-0500 Diastolic blood pressure 107 mm[Hg] Nikhil Arley [facility] 05-12-2023 10:19-0500 Heart rate 82 /min Nikhil Arley [facility] 05-12-2023 10:19-0500 Respiratory rate 18 /min Nikhil Tubbs [facility] 05-12-2023 10:19-0500 SaO2% (BldA) [Mass fraction] 96 % Nikhil Tubbs [facility] 05-12-2023 10:19-0500 Systolic blood pressure 156 mm[Hg] Nikhil Tubbs [facility] 05-11-2023 16:23-0500 Body temperature 97.88 [degF] Jorge Mcintosh [facility] 05-11-2023 16:23-0500 Diastolic blood pressure 102 mm[Hg] Jorge Mcintosh [facility] 05-11-2023 16:23-0500 Heart rate 89 /min Jorge Mcintosh [facility] 05-11-2023 16:23-0500 Respiratory rate 16 /min Jorge Mcintosh [facility] 05-11-2023 16:23-0500 SaO2% (BldA) [Mass fraction] 97 % Jorge Mcintosh [facility] 05-11-2023 16:23-0500 Systolic blood pressure 163 mm[Hg] Jorge Mcintosh [facility] 05-08-2023 12:41-0500 Diastolic blood pressure 62 mm[Hg] [facility] 05-08-2023 12:41-0500 Heart rate 78 /min [facility] 05-08-2023 12:41-0500 Mean blood pressure 80 mm[Hg] [facility] 05-08-2023 12:41-0500 Respiratory rate 16 /min [facility] 05-08-2023 12:41-0500 SaO2% (BldA) [Mass fraction] 95 % [facility] 05-08-2023 12:41-0500 Systolic blood pressure 115 mm[Hg] [facility] 05-08-2023 12:00-0500 Diastolic blood pressure 74 mm[Hg] [facility] 05-08-2023 12:00-0500 Mean blood pressure 95 mm[Hg] [facility] 05-08-2023 12:00-0500 SaO2% (BldA) [Mass fraction] 96 % [facility] 05-08-2023 12:00-0500 Systolic blood pressure 138 mm[Hg] [facility] 05-08-2023 11:27-0500 Body temperature 98.06 [degF] [facility] 05-08-2023 11:27-0500 Diastolic blood pressure 93 mm[Hg] [facility] 05-08-2023 11:27-0500 Heart rate 97 /min [facility] 05-08-2023 11:27-0500 Respiratory rate 18 /min [facility] 05-08-2023 11:27-0500 SaO2% (BldA) [Mass fraction] 95 % [facility] 05-08-2023 11:27-0500 Systolic blood pressure 166 mm[Hg] [facility] 05-05-2023 11:58-0500 Body height 160.02 cm PHYSICIAN NO [facility] 05-05-2023 11:58-0500 Body temperature 97.4 [degF] PHYSICIAN NO [facility] 05-05-2023 11:58-0500 Body weight 115.3 kg PHYSICIAN NO [facility] 05-05-2023 11:58-0500 Diastolic blood pressure 89 mm[Hg] PHYSICIAN NO [facility] 05-05-2023 11:58-0500 Heart rate 91 /min PHYSICIAN NO [facility] 05-05-2023 11:58-0500 Respiratory rate 20 /min PHYSICIAN NO [facility] 05-05-2023 11:58-0500 SaO2% (BldA) [Mass fraction] 98 % PHYSICIAN NO [facility] 05-05-2023 11:58-0500 Systolic blood pressure 152 mm[Hg] PHYSICIAN NO [facility] 04-28-2023 00:38-0500 Diastolic blood pressure 89 mm[Hg] Sal Juarez MD Work Phone: [facility] 04-28-2023 00:38-0500 Heart rate 76 /min Sal Juarez MD Work Phone: [facility] 04-28-2023 00:38-0500 Respiratory rate 16 /min Sal Juarez MD Work Phone: [facility] 04-28-2023 00:38-0500 SaO2% (BldA) [Mass fraction] 99 % Sal Juarez MD Work Phone: [facility] 04-28-2023 00:38-0500 Systolic blood pressure 160 mm[Hg] Sal Juarez MD Work Phone: [facility] 04-27-2023 22:40-0500 Body temperature 97.81 [degF] Sal Juarez MD Work Phone: [facility] 04-26-2023 09:29-0500 Body temperature 97.52 [degF] [facility] 04-26-2023 09:29-0500 Diastolic blood pressure 80 mm[Hg] [facility] 04-26-2023 09:29-0500 Heart rate 87 /min [facility] 04-26-2023 09:29-0500 Respiratory rate 20 /min [facility] 04-26-2023 09:29-0500 SaO2% (BldA) [Mass fraction] 96 % [facility] 04-26-2023 09:29-0500 Systolic blood pressure 166 mm[Hg] [facility] 04-22-2023 20:11-0500 Body temperature 98.06 [degF] Pedro Pablo Chance [facility] 04-22-2023 20:11-0500 Diastolic blood pressure 82 mm[Hg] Pedro Pablo Chance [facility] 04-22-2023 20:11-0500 Heart rate 93 /min Pedro Pablo Chance [facility] 04-22-2023 20:11-0500 Respiratory rate 18 /min Pedro Pablo Chance [facility] 04-22-2023 20:11-0500 SaO2% (BldA) [Mass fraction] 96 % Pedro Pablo Chance [facility] 04-22-2023 20:11-0500 Systolic blood pressure 166 mm[Hg] Pedro Pablo Chance [facility] 04-12-2023 14:11-0500 Body height 160.02 cm [place] 04-12-2023 14:11-0500 Body temperature 97.9 [degF] [facility] 04-12-2023 14:11-0500 Body weight 114.5 kg [place] 04-12-2023 14:11-0500 Diastolic blood pressure 98 mm[Hg] [facility] 04-12-2023 14:11-0500 Heart rate 99 /min [place] 04-12-2023 14:11-0500 Respiratory rate 18 /min [facility] 04-12-2023 14:11-0500 SaO2% (BldA) [Mass fraction] 98 % [facility] 04-12-2023 14:11-0500 Systolic blood pressure 193 mm[Hg] [facility] 04-11-2023 18:31-0500 Body temperature 97.34 [degF] Balbina Bryant [facility] 04-11-2023 18:31-0500 Diastolic blood pressure 105 mm[Hg] [facility] 04-11-2023 18:31-0500 Heart rate 87 /min [facility] 04-11-2023 18:31-0500 Respiratory rate 20 /min [facility] 04-11-2023 18:31-0500 SaO2% (BldA) [Mass fraction] 96 % [facility] 04-11-2023 18:31-0500 Systolic blood pressure 160 mm[Hg] [facility] 04-11-2023 01:00-0500 Hourly Rounding Pedro Pablo Chance [facility] 04-11-2023 01:00-0500 Promise to Return Pedro Pablo Chance [facility] 04-11-2023 00:00-0500 Hourly Rounding Pedro Pablo Chance [facility] 04-11-2023 00:00-0500 Promise to Return Pedro Pablo Chance [facility] 04-10-2023 23:00-0500 Hourly Rounding Pedro Pablo Chance [facility] 04-10-2023 23:00-0500 Promise to Return Pedro Pablo Chance [facility] 04-10-2023 22:05-0500 Body temperature 97.34 [degF] Pedro Pablo Chance [facility] 04-10-2023 22:05-0500 Diastolic blood pressure 95 mm[Hg] Pedro Pablo Chance [facility] 04-10-2023 22:05-0500 Heart rate 80 /min Pedro Pablo Chance [facility] 04-10-2023 22:05-0500 Respiratory rate 16 /min Pedro Pablo Chance [facility] 04-10-2023 22:05-0500 SaO2% (BldA) [Mass fraction] 95 % Pedro Pablo Chance [facility] 04-10-2023 22:05-0500 Systolic blood pressure 156 mm[Hg] Pedro Pablo Chance [facility] 04-05-2023 15:30-0500 Diastolic blood pressure 82 mm[Hg] Nikhil Arley [facility] 04-05-2023 15:30-0500 Heart rate 76 /min Nikhil Arley [facility] 04-05-2023 15:30-0500 Mean blood pressure 100 mm[Hg] Nikhil Arley [facility] 04-05-2023 15:30-0500 Respiratory rate 17 /min Nikhil Arley [facility] 04-05-2023 15:30-0500 SaO2% (BldA) [Mass fraction] 97 % Nikhil Arley [facility] 04-05-2023 15:30-0500 Systolic blood pressure 137 mm[Hg] Nikhil Arley [facility] 04-05-2023 15:00-0500 Diastolic blood pressure 85 mm[Hg] Nikhil Arley [facility] 04-05-2023 15:00-0500 Heart rate 84 /min Nikhil Arley [facility] 04-05-2023 15:00-0500 Mean blood pressure 108 mm[Hg] Nikhil Arley [facility] 04-05-2023 15:00-0500 Systolic blood pressure 153 mm[Hg] Nikhil Arley [facility] 04-05-2023 14:30-0500 Diastolic blood pressure 66 mm[Hg] Nikhil Tubbs [facility] 04-05-2023 14:30-0500 Heart rate 81 /min Nikhil Arley [facility] 04-05-2023 14:30-0500 Mean blood pressure 88 mm[Hg] Nikhil Tubbs [facility] 04-05-2023 14:30-0500 Respiratory rate 18 /min Nikhil Arley [facility] 04-05-2023 14:30-0500 SaO2% (BldA) [Mass fraction] 96 % Nikhil Arley [facility] 04-05-2023 14:30-0500 Systolic blood pressure 131 mm[Hg] Nikhil Tubbs [facility] 04-05-2023 12:34-0500 Body temperature 98.06 [degF] Nikhil Arley [facility] 04-05-2023 12:34-0500 Heart rate 92 /min Nikhil Tubbs [facility] 04-02-2023 21:43-0500 Body temperature 97.34 [degF] Kaylinn Dokken [facility] 04-02-2023 21:43-0500 Diastolic blood pressure 94 mm[Hg] Kaylinn Dokken [facility] 04-02-2023 21:43-0500 Heart rate 96 /min Kaylinn Dokken [facility] 04-02-2023 21:43-0500 Respiratory rate 20 /min Kaylinn Dokken [facility] 04-02-2023 21:43-0500 SaO2% (BldA) [Mass fraction] 96 % Elisa Sánchez [facility] 04-02-2023 21:43-0500 Systolic blood pressure 145 mm[Hg] Elisa Sánchez [facility] 04-01-2023 08:21-0500 Body height 160 cm Chidi Joseph MD Work Phone: 7(262)[phone] [place] [address] 04-01-2023 08:21-0500 Body mass index (BMI) [Ratio] 43.22 kg/m2 Chidi Joseph MD Work Phone: 2(885)107-557292 [address] 04-01-2023 08:21-0500 Body temperature 97.5 [degF] Chidi Joseph MD Work Phone: 4(830)[phone] [address] 04-01-2023 08:21-0500 Body weight 110.68 kg Chidi Joseph MD Work Phone: 5(149)[phone] [place] [address] 04-01-2023 08:21-0500 Diastolic blood pressure 87 mm[Hg] Chidi Joseph MD Work Phone: 5(066)304-953115 [place] [address] 04-01-2023 08:21-0500 Heart rate 92 /min Chidi Joseph MD Work Phone: 5(373)[phone] [place] [address] 04-01-2023 08:21-0500 Respiratory rate 16 /min Chidi Joseph MD Work Phone: 6(021)[phone] [address] 04-01-2023 08:21-0500 Systolic blood pressure 138 mm[Hg] Chidi Joseph MD Work Phone: 5(241)[phone] [address] 03-29-2023 10:06-0500 Body height 160.02 cm ELIZABETH Veliz Work Phone: [facility] 03-29-2023 10:06-0500 Body temperature 97.5 [degF] ELIZABETH Veliz Work Phone: [facility] 03-29-2023 10:06-0500 Body weight 111 kg HIM SPECIALISTRadha Veliz Work Phone: [facility] 03-29-2023 10:06-0500 Diastolic blood pressure 86 mm[Hg] ELIZABETH Veliz Work Phone: [facility] 03-29-2023 10:06-0500 Heart rate 85 /min ELIZABETH Veliz Work Phone: [facility] 03-29-2023 10:06-0500 Respiratory rate 20 /min ELIZABETH Veliz Work Phone: [facility] 03-29-2023 10:06-0500 SaO2% (BldA) [Mass fraction] 96 % ELIZABETH Veliz Work Phone: [facility] 03-29-2023 10:06-0500 Systolic blood pressure 133 mm[Hg] ELIZABETH Veliz Work Phone: [facility] 03-26-2023 12:43-0500 Diastolic blood pressure 80 mm[Hg] Jorge Mcintosh [facility] 03-26-2023 12:43-0500 Heart rate 79 /min Jorge Mcintosh [facility] 03-26-2023 12:43-0500 Respiratory rate 16 /min Jorge Mcintosh [facility] 03-26-2023 12:43-0500 SaO2% (BldA) [Mass fraction] 100 % Jorge Rodrigueze [facility] 03-26-2023 12:43-0500 Systolic blood pressure 109 mm[Hg] Jorge Arnaldo [facility] 03-26-2023 10:55-0500 Body temperature 97.88 [degF] Jorge Arnaldo [facility] 03-26-2023 10:55-0500 Diastolic blood pressure 75 mm[Hg] Jorge Arnaldo [facility] 03-26-2023 10:55-0500 Heart rate 88 /min Jorge Mcintosh [facility] 03-26-2023 10:55-0500 Respiratory rate 16 /min Jorge Mcintosh [facility] 03-26-2023 10:55-0500 SaO2% (BldA) [Mass fraction] 95 % Jorge Mcintosh [facility] 03-26-2023 10:55-0500 Systolic blood pressure 132 mm[Hg] Jorge Mcintosh [facility] 2023 13:28-0500 Body height 160.02 cm HIM SPECIALISTRadha Veliz Work Phone: [facility] 2023 13:28-0500 Body temperature 97.8 [degF] HIM SPECIALIST Felice Veliz Work Phone: [facility] 2023 13:28-0500 Body weight 112.3 kg HIM SPECIALIST Felice Veliz Work Phone: [facility] 2023 13:28-0500 Diastolic blood pressure 85 mm[Hg] HIM SPECIALIST Felice Veliz Work Phone: [facility] 2023 13:28-0500 Heart rate 72 /min HIM SPECIALIST Felice Veliz Work Phone: [facility] 2023 13:28-0500 Respiratory rate 20 /min HIM SPECIALIST Felice Veliz Work Phone: [facility] 2023 13:28-0500 SaO2% (BldA) [Mass fraction] 98 % HIM SPECIALIST Felice Veliz Work Phone: [facility] 2023 13:28-0500 Systolic blood pressure 148 mm[Hg] HIM SPECIALIST Felice Veliz Work Phone: [facility] 03-23-2023 12:47-0500 Body temperature 97.7 [degF] Nikhil Tubbs [facility] 03-23-2023 12:47-0500 Diastolic blood pressure 100 mm[Hg] Nikhil Tubbs [facility] 03-23-2023 12:47-0500 Heart rate 77 /min Nikhil Tubbs [facility] 03-23-2023 12:47-0500 Respiratory rate 16 /min Nikhil Tubbs [facility] 03-23-2023 12:47-0500 SaO2% (BldA) [Mass fraction] 98 % Nikhil Tubbs [facility] 03-23-2023 12:47-0500 Systolic blood pressure 158 mm[Hg] Nikhil Tubbs [facility] 03-20-2023 13:07-0500 Body temperature 98.06 [degF] Bebetoylinn Dokken [facility] 03-20-2023 13:07-0500 Diastolic blood pressure 87 mm[Hg] Kaylinn Dokken [facility] 03-20-2023 13:07-0500 Heart rate 99 /min Bebetoylinn Dokken [facility] 03-20-2023 13:07-0500 Respiratory rate 16 /min Kaylinn Dokken [facility] 03-20-2023 13:07-0500 SaO2% (BldA) [Mass fraction] 97 % Kaylinn Dokken [facility] 03-20-2023 13:07-0500 Systolic blood pressure 125 mm[Hg] Kaylinn Dokken [facility] 03-11-2023 10:57-0500 Blood Pressure Location [facility] 03-11-2023 10:57-0500 Diastolic blood pressure 83 mm[Hg] [facility] 03-11-2023 10:57-0500 Heart rate 82 /min [facility] 03-11-2023 10:57-0500 Mean blood pressure 110 mm[Hg] [facility] 03-11-2023 10:57-0500 Respiratory rate 16 /min [facility] 03-11-2023 10:57-0500 SaO2% (BldA) [Mass fraction] 97 % [facility] 03-11-2023 10:57-0500 Systolic blood pressure 163 mm[Hg] [facility] 03-11-2023 10:13-0500 Blood Pressure Location [facility] 03-11-2023 10:13-0500 Diastolic blood pressure 99 mm[Hg] [facility] 03-11-2023 10:13-0500 Heart rate 64 /min [facility] 03-11-2023 10:13-0500 Mean blood pressure 117 mm[Hg] [facility] 03-11-2023 10:13-0500 Respiratory rate 16 /min [facility] 03-11-2023 10:13-0500 SaO2% (BldA) [Mass fraction] 95 % [facility] 03-11-2023 10:13-0500 Systolic blood pressure 154 mm[Hg] [facility] 03-11-2023 09:02-0500 Body temperature 97.88 [degF] [facility] 03-11-2023 09:02-0500 Diastolic blood pressure 94 mm[Hg] [facility] 03-11-2023 09:02-0500 Heart rate 76 /min [facility] 03-11-2023 09:02-0500 Respiratory rate 20 /min [facility] 03-11-2023 09:02-0500 SaO2% (BldA) [Mass fraction] 96 % [facility] 03-11-2023 09:02-0500 Systolic blood pressure 143 mm[Hg] [facility] 03-09-2023 10:24-0500 Body height 160.02 cm PHYSICIAN NO [facility] 03-09-2023 10:24-0500 Body temperature 97.9 [degF] PHYSICIAN NO [facility] 03-09-2023 10:24-0500 Body weight 110 kg PHYSICIAN NO [facility] 03-09-2023 10:24-0500 Diastolic blood pressure 87 mm[Hg] PHYSICIAN NO [facility] 03-09-2023 10:24-0500 Heart rate 97 /min PHYSICIAN NO [facility] 03-09-2023 10:24-0500 Respiratory rate 16 /min PHYSICIAN NO [facility] 03-09-2023 10:24-0500 SaO2% (BldA) [Mass fraction] 96 % PHYSICIAN NO [facility] 03-09-2023 10:24-0500 Systolic blood pressure 154 mm[Hg] PHYSICIAN NO [facility] 02-21-2023 17:00-0500 Body height 160.02 cm Services Family [employer] Work Phone: [facility] 02-21-2023 17:00-0500 Body weight 110.95 kg Services Family [employer] Work Phone: [facility] 02-21-2023 16:59-0500 Body temperature 97.3 [degF] Services [facility] Work Phone: [facility] 02-21-2023 16:59-0500 Diastolic blood pressure 86 mm[Hg] Services [facility] [employer] Work Phone: [facility] 02-21-2023 16:59-0500 Heart rate 91 /min Services [facility] [employer] Work Phone: [facility] 02-21-2023 16:59-0500 Respiratory rate 20 /min [facility] Work Phone: [facility] 02-21-2023 16:59-0500 SaO2% (BldA) [Mass fraction] 97 % [facility] Work Phone: [facility] 02-21-2023 16:59-0500 Systolic blood pressure 183 mm[Hg] [facility] Work Phone: [facility] 02-12-2023 19:48-0500 Body temperature 98.06 [degF] Pedro Pablo Chance [facility] 02-12-2023 19:48-0500 Diastolic blood pressure 84 mm[Hg] Pedro Pablo Chance [facility] 02-12-2023 19:48-0500 Heart rate 98 /min Pedro Pablo Chance [facility] 02-12-2023 19:48-0500 Respiratory rate 18 /min Pedro Pablo Chance [facility] 02-12-2023 19:48-0500 SaO2% (BldA) [Mass fraction] 100 % Pedro Pablo Chance [facility] 02-12-2023 19:48-0500 Systolic blood pressure 134 mm[Hg] Pedro Pablo Chance [facility] 02-08-2023 17:18-0500 Body height 160.02 cm Services [facility] Work Phone: [facility] 02-08-2023 17:18-0500 Body temperature 98.5 [degF] Services [facility] Work Phone: [facility] 02-08-2023 17:18-0500 Body weight 108.86 kg Services [facility] Work Phone: [facility] 02-08-2023 17:18-0500 Diastolic blood pressure 115 mm[Hg] Services [facility] Work Phone: [facility] 02-08-2023 17:18-0500 Heart rate 98 /min [facility] Work Phone: [facility] 02-08-2023 17:18-0500 Respiratory rate 18 /min Services [facility] Work Phone: [facility] 02-08-2023 17:18-0500 SaO2% (BldA) [Mass fraction] 98 % [facility] Work Phone: [facility] 02-08-2023 17:18-0500 Systolic blood pressure 167 mm[Hg] Services [employer] Work Phone: [facility] 02-07-2023 19:28-0500 Body temperature 97.88 [degF] Kaylinn Dokken [facility] 02-07-2023 19:28-0500 Diastolic blood pressure 84 mm[Hg] Kaylinn Dokken [facility] 02-07-2023 19:28-0500 Heart rate 114 /min Kaylinn Dokken [facility] 02-07-2023 19:28-0500 Respiratory rate 18 /min Kaylinn Dokken [facility] 02-07-2023 19:28-0500 SaO2% (BldA) [Mass fraction] 99 % Kaylinn Dokken [facility] 02-07-2023 19:28-0500 Systolic blood pressure 163 mm[Hg] Kaylinn Dokken [facility] 02-04-2023 13:13-0500 Diastolic blood pressure 91 mm[Hg] Services [employer] Work Phone: [facility] 02-04-2023 13:13-0500 Heart rate 95 /min [facility] Work Phone: [facility] 02-04-2023 13:13-0500 Respiratory rate 18 /min [facility] Work Phone: [facility] 02-04-2023 13:13-0500 SaO2% (BldA) [Mass fraction] 99 % [facility] Work Phone: [facility] 02-04-2023 13:13-0500 Systolic blood pressure 145 mm[Hg] [facility] Work Phone: [facility] 02-04-2023 11:54-0500 Body height 160.02 cm [facility] Work Phone: [facility] 02-04-2023 11:54-0500 Body temperature 98.1 [degF] [facility] Work Phone: [facility] 02-04-2023 11:54-0500 Body weight 110.15 kg [facility] Work Phone: [facility] 02-02-2023 13:17-0500 Body height 160.02 cm [facility] Work Phone: [facility] 02-02-2023 13:17-0500 Body temperature 98.7 [degF] [facility] Work Phone: [facility] 02-02-2023 13:17-0500 Body weight 112.2 kg [facility] Work Phone: [facility] 02-02-2023 13:17-0500 Diastolic blood pressure 92 mm[Hg] [facility] Work Phone: [facility] 02-02-2023 13:17-0500 Heart rate 96 /min [facility] Work Phone: [facility] 02-02-2023 13:17-0500 Respiratory rate 24 /min [facility] Work Phone: [facility] 02-02-2023 13:17-0500 SaO2% (BldA) [Mass fraction] 98 % [facility] Work Phone: [facility] 02-02-2023 13:17-0500 Systolic blood pressure 171 mm[Hg] Services [facility] Work Phone: [facility] 01-29-2023 11:35-0500 Body temperature 98.06 [degF] Jorge Mcintosh [facility] 01-29-2023 11:35-0500 Diastolic blood pressure 87 mm[Hg] Jorge Rodrigueze [facility] 01-29-2023 11:35-0500 Heart rate 84 /min Jorge Mcintosh [facility] 01-29-2023 11:35-0500 Respiratory rate 18 /min Jorge Mcintosh [facility] 01-29-2023 11:35-0500 SaO2% (BldA) [Mass fraction] 97 % Jorge Mcintosh [facility] 01-29-2023 11:35-0500 Systolic blood pressure 140 mm[Hg] Jorge Mcintosh [facility] 01-27-2023 10:41-0500 Body height 163.19 cm Services [employer] Work Phone: [facility] 01-27-2023 10:41-0500 Body weight 110 kg Services [facility] Work Phone: [facility] 01-27-2023 10:39-0500 Body temperature 98.2 [degF] Services [facility] Work Phone: [facility] 01-27-2023 10:39-0500 Diastolic blood pressure 100 mm[Hg] Services [employer] Work Phone: [facility] 01-27-2023 10:39-0500 Heart rate 96 /min Services [employer] Work Phone: [facility] 01-27-2023 10:39-0500 Respiratory rate 18 /min Services [facility] Work Phone: [facility] 01-27-2023 10:39-0500 SaO2% (BldA) [Mass fraction] 98 % Services [facility] Work Phone: [facility] 01-27-2023 10:39-0500 Systolic blood pressure 140 mm[Hg] Services [facility] Work Phone: [facility] 01-23-2023 13:19-0400 Body height 160.02 cm Services [facility] Work Phone: [facility] 01-23-2023 13:19-0400 Body temperature 97.4 [degF] Services [facility] Work Phone: [facility] 01-23-2023 13:19-0400 Body weight 113.4 kg Services [facility] Work Phone: [facility] 01-23-2023 13:19-0400 Diastolic blood pressure 85 mm[Hg] Services [facility] Work Phone: [facility] 01-23-2023 13:19-0400 Heart rate 81 /min Services [facility] Work Phone: [facility] 01-23-2023 13:19-0400 Respiratory rate 20 /min Services [facility] Work Phone: [facility] 01-23-2023 13:19-0400 SaO2% (BldA) [Mass fraction] 99 % Services [facility] Work Phone: [facility] 01-23-2023 13:19-0400 Systolic blood pressure 154 mm[Hg] Services [facility] Work Phone: [facility] 01-22-2023 18:48-0400 Body temperature 97.52 [degF] [facility] 01-22-2023 18:48-0400 Diastolic blood pressure 97 mm[Hg] [facility] 01-22-2023 18:48-0400 Heart rate 85 /min [facility] 01-22-2023 18:48-0400 Respiratory rate 16 /min [facility] 01-22-2023 18:48-0400 SaO2% (BldA) [Mass fraction] 96 % [facility] 01-22-2023 18:48-0400 Systolic blood pressure 143 mm[Hg] [facility] 01-22-2023 13:45-0400 Body height 160 cm Jori Harman MD PhD Work Phone: [facility] 01-22-2023 13:45-0400 Body mass index (BMI) [Ratio] 43.08 kg/m2 Jori Harman MD PhD Work Phone: [facility] 01-22-2023 13:45-0400 Body temperature 96.8 [degF] Jori Harman MD PhD Work Phone: [facility] 01-22-2023 13:45-0400 Body weight 110.31 kg Jori Harman MD PhD Work Phone: [facility] 01-22-2023 13:45-0400 Diastolic blood pressure 84 mm[Hg] Jori Harman MD PhD Work Phone: [facility] 01-22-2023 13:45-0400 Heart rate 97 /min Jori Harman MD PhD Work Phone: [facility] 01-22-2023 13:45-0400 Systolic blood pressure 160 mm[Hg] Jori Harman MD PhD Work Phone: [facility] 01-15-2023 13:20-0400 Body height 160 cm Antonio Husain PA-C Work Phone: [facility] 01-15-2023 13:20-0400 Body mass index (BMI) [Ratio] 44.04 kg/m2 Antonio DUPREE-C Work Phone: [facility] 01-15-2023 13:20-0400 Body temperature 97.5 [degF] Antonio Newbill PA-C Work Phone: [facility] 01-15-2023 13:20-0400 Body weight 112.76 kg Antonio Newbill PA-C Work Phone: [facility] 01-15-2023 13:20-0400 Diastolic blood pressure 90 mm[Hg] Antonio Newbill PA-C Work Phone: [facility] 01-15-2023 13:20-0400 Heart rate 92 /min Antonio Newbill PA-C Work Phone: [facility] 01-15-2023 13:20-0400 SaO2% (BldA) [Mass fraction] 94 % Antonio Newbill PA-C Work Phone: [facility] 01-15-2023 13:20-0400 Systolic blood pressure 144 mm[Hg] Antonio Newbill PA-C Work Phone: [facility] 01-14-2023 14:35-0400 Body temperature 97.52 [degF] Jorge Mcintosh [facility] 01-14-2023 14:35-0400 Diastolic blood pressure 81 mm[Hg] Jorge Mcintosh [facility] 01-14-2023 14:35-0400 Heart rate 81 /min Jorge Rodrigueze [facility] 01-14-2023 14:35-0400 Respiratory rate 22 /min Jorge Mcintosh [facility] 01-14-2023 14:35-0400 SaO2% (BldA) [Mass fraction] 95 % Jorge Rodrigueze [facility] 01-14-2023 14:35-0400 Systolic blood pressure 118 mm[Hg] Jorge Arnaldo [facility] 01-12-2023 21:30-0400 Body temperature 98.06 [degF] [facility] 01-12-2023 21:30-0400 Diastolic blood pressure 80 mm[Hg] [facility] 01-12-2023 21:30-0400 Heart rate 78 /min [facility] 01-12-2023 21:30-0400 Mean blood pressure 100 mm[Hg] [facility] 01-12-2023 21:30-0400 Respiratory rate 16 /min [facility] 01-12-2023 21:30-0400 SaO2% (BldA) [Mass fraction] 98 % [facility] 01-12-2023 21:30-0400 Systolic blood pressure 140 mm[Hg] [facility] 01-12-2023 21:00-0400 Diastolic blood pressure 67 mm[Hg] [facility] 01-12-2023 21:00-0400 Heart rate 70 /min [facility] 01-12-2023 21:00-0400 Mean blood pressure 91 mm[Hg] [facility] 01-12-2023 21:00-0400 Systolic blood pressure 138 mm[Hg] [facility] 01-12-2023 20:24-0400 Body temperature 98.06 [degF] [facility] 01-12-2023 20:24-0400 Diastolic blood pressure 84 mm[Hg] [facility] 01-12-2023 20:24-0400 Heart rate 79 /min [facility] 01-12-2023 20:24-0400 Respiratory rate 20 /min [facility] 01-12-2023 20:24-0400 SaO2% (BldA) [Mass fraction] 97 % [facility] 01-12-2023 20:24-0400 Systolic blood pressure 144 mm[Hg] Balbina Bryant [facility] 01-12-2023 10:20-0400 Body height 160.02 cm Services [employer] Work Phone: [facility] 01-12-2023 10:20-0400 Body temperature 97.8 [degF] Services [employer] Work Phone: [facility] 01-12-2023 10:20-0400 Body weight 113.39 kg Services [facility] Work Phone: [facility] 01-12-2023 10:20-0400 Diastolic blood pressure 75 mm[Hg] Services [employer] Work Phone: [facility] 01-12-2023 10:20-0400 Heart rate 79 /min Services [employer] Work Phone: [facility] 01-12-2023 10:20-0400 Respiratory rate 18 /min Services [employer] Work Phone: [facility] 01-12-2023 10:20-0400 SaO2% (BldA) [Mass fraction] 96 % Services [employer] Work Phone: [facility] 01-12-2023 10:20-0400 Systolic blood pressure 130 mm[Hg] Services [facility] [employer] Work Phone: [facility] 01-10-2023 10:32-0400 Body temperature 97.88 [degF] Nikhil Tubbs [facility] 01-10-2023 10:32-0400 Diastolic blood pressure 92 mm[Hg] Nikhil Tubbs [facility] 01-10-2023 10:32-0400 Heart rate 75 /min Nikhil Tubbs [facility] 01-10-2023 10:32-0400 Respiratory rate 18 /min Nikhil Tubbs [facility] 01-10-2023 10:32-0400 SaO2% (BldA) [Mass fraction] 98 % Nikhil Tubbs [facility] 01-10-2023 10:32-0400 Systolic blood pressure 138 mm[Hg] Nikhil Tubbs [facility] 01-10-2023 08:40-0400 Body height 162.56 cm Joe Derrick Other [employer] Other 01-10-2023 08:40-0400 Body mass index (BMI) [Ratio] 43.94 kg/m2 Joe Derrick Other [facility] [employer] Other 01-10-2023 08:40-0400 Body weight 116.12 kg Joe Meza Other [employer] [facility] [employer] Other 01-07-2023 11:04-0400 Body height 160.02 cm Services [employer] Work Phone: [facility] 01-07-2023 11:04-0400 Body temperature 97.5 [degF] Services [employer] Work Phone: [facility] 01-07-2023 11:04-0400 Body weight 108.86 kg Services [employer] Work Phone: [facility] 01-07-2023 11:04-0400 Diastolic blood pressure 81 mm[Hg] Services [employer] Work Phone: [facility] 01-07-2023 11:04-0400 Heart rate 75 /min Services [employer] Work Phone: [facility] 01-07-2023 11:04-0400 Respiratory rate 18 /min Services [employer] Work Phone: [facility] 01-07-2023 11:04-0400 SaO2% (BldA) [Mass fraction] 97 % Services [employer] Work Phone: [facility] 01-07-2023 11:04-0400 Systolic blood pressure 159 mm[Hg] Services [facility] [employer] Work Phone: [facility] 01-04-2023 23:07-0400 Diastolic blood pressure 83 mm[Hg] [facility] 01-04-2023 23:07-0400 Heart rate 77 /min [facility] 01-04-2023 23:07-0400 Respiratory rate 18 /min [facility] 01-04-2023 23:07-0400 SaO2% (BldA) [Mass fraction] 95 % [facility] 01-04-2023 23:07-0400 Systolic blood pressure 124 mm[Hg] [facility] 01-04-2023 21:12-0400 Body temperature 97.88 [degF] [facility] 01-04-2023 21:12-0400 Diastolic blood pressure 82 mm[Hg] [facility] 01-04-2023 21:12-0400 Heart rate 81 /min [facility] 01-04-2023 21:12-0400 Respiratory rate 16 /min [facility] 01-04-2023 21:12-0400 SaO2% (BldA) [Mass fraction] 98 % [facility] 01-04-2023 21:12-0400 Systolic blood pressure 121 mm[Hg] [facility] 01-04-2023 15:17-0400 Body height 160.02 cm Services [facility] [employer] Work Phone: [facility] 01-04-2023 15:17-0400 Body temperature 98.5 [degF] Services [facility] Work Phone: [facility] 01-04-2023 15:17-0400 Body weight 108.86 kg Services [facility] [employer] Work Phone: [facility] 01-04-2023 15:17-0400 Diastolic blood pressure 68 mm[Hg] Services [employer] Work Phone: [facility] 01-04-2023 15:17-0400 Heart rate 97 /min Services [facility] Work Phone: [facility] 01-04-2023 15:17-0400 Respiratory rate 18 /min Services [facility] Work Phone: [facility] 01-04-2023 15:17-0400 SaO2% (BldA) [Mass fraction] 96 % Services [facility] Work Phone: [facility] 01-04-2023 15:17-0400 Systolic blood pressure 148 mm[Hg] Services [facility] Work Phone: [facility] 01-02-2023 16:07-0400 Body temperature 97.88 [degF] Nikhil Tubbs [facility] 01-02-2023 16:07-0400 Diastolic blood pressure 84 mm[Hg] Nikhil Tubbs [facility] 01-02-2023 16:07-0400 Heart rate 67 /min Nikhil Tubbs [facility] 01-02-2023 16:07-0400 Respiratory rate 18 /min Nikhil Tubbs [facility] 01-02-2023 16:07-0400 SaO2% (BldA) [Mass fraction] 93 % Nikhil Tubbs [facility] 01-02-2023 16:07-0400 Systolic blood pressure 127 mm[Hg] Nikhil Arley [facility] 12-28-2022 14:48-0400 Heart rate 97 /min Services [facility] Work Phone: [facility] 12-28-2022 13:09-0400 Body height 160.02 cm Services [facility] Work Phone: [facility] 12-28-2022 13:09-0400 Body temperature 98.3 [degF] Services [employer] Work Phone: [facility] 12-28-2022 13:09-0400 Body weight 108.86 kg Services [employer] Work Phone: [facility] 12-28-2022 13:09-0400 Diastolic blood pressure 84 mm[Hg] Services [facility] [employer] Work Phone: [facility] 12-28-2022 13:09-0400 Respiratory rate 20 /min Services [employer] Work Phone: [facility] 12-28-2022 13:09-0400 SaO2% (BldA) [Mass fraction] 100 % Services [employer] Work Phone: [facility] 12-28-2022 13:09-0400 Systolic blood pressure 124 mm[Hg] Services [facility] [employer] Phone: [facility] 12-27-2022 08:40-0400 Body height 162.56 cm [employer] Other [employer] [facility] [employer] Other 12-27-2022 08:40-0400 Body mass index (BMI) [Ratio] 42.05 kg/m2 [employer] Other [employer] Other 12-27-2022 08:40-0400 Body weight 111.13 kg Rose [employer] Other [facility] [employer] Other 12-26-2022 16:28-0400 Body temperature 98.06 [degF] [facility] 12-26-2022 16:28-0400 Diastolic blood pressure 63 mm[Hg] [facility] 12-26-2022 16:28-0400 Heart rate 74 /min [facility] 12-26-2022 16:28-0400 Respiratory rate 18 /min [facility] 12-26-2022 16:28-0400 SaO2% (BldA) [Mass fraction] 98 % [facility] 12-26-2022 16:28-0400 Systolic blood pressure 142 mm[Hg] [facility] 12-26-2022 13:15-0400 Body height 162.56 cm Glen Garza Other [facility] [employer] Other 12-26-2022 13:15-0400 Body mass index (BMI) [Ratio] 42.74 kg/m2 Glen Davidky Other [facility] [employer] Other 12-26-2022 13:15-0400 Body weight 112.95 kg Glen Davidky Other [employer] Other 12-26-2022 13:15-0400 Diastolic blood pressure 80 mm[Hg] Glen Kayla Other [employer] Other 12-26-2022 13:15-0400 SaO2% (BldA) [Mass fraction] 98 % Glen Garza Other [employer] Other 12-26-2022 13:15-0400 Systolic blood pressure 126 mm[Hg] Glen Kayla Other [facility] [employer] Other 12-24-2022 12:28-0400 Body height 160.02 cm Services [employer] Work Phone: [facility] 12-24-2022 12:28-0400 Body temperature 97.8 [degF] Services [facility] Work Phone: [facility] 12-24-2022 12:28-0400 Body weight 114 kg Services [employer] Work Phone: [facility] 12-24-2022 12:28-0400 Diastolic blood pressure 78 mm[Hg] Services [facility] Work Phone: [facility] 12-24-2022 12:28-0400 Heart rate 82 /min Services [facility] Work Phone: [facility] 12-24-2022 12:28-0400 Respiratory rate 20 /min Services [facility] Work Phone: [facility] 12-24-2022 12:28-0400 SaO2% (BldA) [Mass fraction] 100 % Services [facility] Work Phone: [facility] 12-24-2022 12:28-0400 Systolic blood pressure 135 mm[Hg] Services [facility] Work Phone: [facility] 12-23-2022 16:55-0400 Body temperature 97.7 [degF] Nikhil Arley [facility] 12-23-2022 16:55-0400 Diastolic blood pressure 80 mm[Hg] Nikhil Arley [facility] 12-23-2022 16:55-0400 Heart rate 81 /min Nikhil Arley [facility] 12-23-2022 16:55-0400 Respiratory rate 20 /min Nikhil Tubbs [facility] 12-23-2022 16:55-0400 SaO2% (BldA) [Mass fraction] 98 % Nikhil Arley [facility] 12-23-2022 16:55-0400 Systolic blood pressure 123 mm[Hg] Nikhil Arley [facility] 12-21-2022 16:11-0400 Body height 160.02 cm Services [facility] Work Phone: [facility] 12-21-2022 16:11-0400 Body weight 112 kg Services [facility] Work Phone: [facility] 12-21-2022 16:10-0400 Body temperature 97.8 [degF] Services Family [employer] Work Phone: [facility] 12-21-2022 16:10-0400 Diastolic blood pressure 78 mm[Hg] Services [facility] Work Phone: [facility] 12-21-2022 16:10-0400 Heart rate 87 /min Services Family [employer] Work Phone: [facility] 12-21-2022 16:10-0400 Respiratory rate 16 /min Services [facility] Work Phone: [facility] 12-21-2022 16:10-0400 SaO2% (BldA) [Mass fraction] 97 % Services Family [employer] Work Phone: [facility] 12-21-2022 16:10-0400 Systolic blood pressure 139 mm[Hg] Services [employer] Work Phone: [facility] 12-18-2022 12:25-0400 Body temperature 98.06 [degF] Jorge Rodrigueze [facility] 12-18-2022 12:25-0400 Diastolic blood pressure 84 mm[Hg] Jorge Rodrigueze [facility] 12-18-2022 12:25-0400 Heart rate 77 /min Jorge Rodrigueze [facility] 12-18-2022 12:25-0400 Respiratory rate 18 /min Jorge Rodrigueze [facility] 12-18-2022 12:25-0400 SaO2% (BldA) [Mass fraction] 98 % Jorge Arnaldo [facility] 12-18-2022 12:25-0400 Systolic blood pressure 131 mm[Hg] Jorge Arnaldo [facility] 12-14-2022 15:12-0400 Body height 160.02 cm Services [employer] Work Phone: [facility] 12-14-2022 15:12-0400 Body temperature 98.1 [degF] Services [facility] Work Phone: [facility] 12-14-2022 15:12-0400 Body weight 108.86 kg Services [employer] Work Phone: [facility] 12-14-2022 15:12-0400 Diastolic blood pressure 73 mm[Hg] Services [employer] Work Phone: [facility] 12-14-2022 15:12-0400 Heart rate 93 /min Services [employer] Work Phone: [facility] 12-14-2022 15:12-0400 Respiratory rate 20 /min Services [facility] [employer] Work Phone: [facility] 12-14-2022 15:12-0400 SaO2% (BldA) [Mass fraction] 97 % Services [employer] Work Phone: [facility] 12-14-2022 15:12-0400 Systolic blood pressure 132 mm[Hg] Services [employer] Work Phone: [facility] 12-13-2022 18:33-0400 Diastolic blood pressure 68 mm[Hg] Nikhil Tubbs [facility] 12-13-2022 18:33-0400 Heart rate 61 /min Nikhil Tubbs [facility] 12-13-2022 18:33-0400 Mean blood pressure 95 mm[Hg] Nikhil Tubbs [facility] 12-13-2022 18:33-0400 SaO2% (BldA) [Mass fraction] 97 % Nikhil Tubbs [facility] 12-13-2022 18:33-0400 Systolic blood pressure 149 mm[Hg] Nikhil Tubbs [facility] 12-13-2022 18:13-0400 Diastolic blood pressure 63 mm[Hg] Nikhil Tubbs [facility] 12-13-2022 18:13-0400 Heart rate 73 /min Nikhil Arley [facility] 12-13-2022 18:13-0400 Mean blood pressure 86 mm[Hg] Nikhil Arley [facility] 12-13-2022 18:13-0400 Respiratory rate 20 /min Nikhil Arley [facility] 12-13-2022 18:13-0400 SaO2% (BldA) [Mass fraction] 98 % Nikhil Arley [facility] 12-13-2022 18:13-0400 Systolic blood pressure 131 mm[Hg] Nikhil Arley [facility] 12-13-2022 17:22-0400 Body temperature 98.06 [degF] Nikhil Arley [facility] 12-13-2022 17:22-0400 Diastolic blood pressure 61 mm[Hg] Nikhil Arley [facility] 12-13-2022 17:22-0400 Heart rate 63 /min Nikhil Arley [facility] 12-13-2022 17:22-0400 Respiratory rate 22 /min Nikhil Arley [facility] 12-13-2022 17:22-0400 SaO2% (BldA) [Mass fraction] 98 % Nikhil Arley [facility] 12-13-2022 17:22-0400 Systolic blood pressure 147 mm[Hg] Nikhil Arley [facility] 12-13-2022 00:15-0400 Diastolic blood pressure 56 mm[Hg] Elisa Sánchez [facility] 12-13-2022 00:15-0400 Heart rate 65 /min Kaylinn Dokken [facility] 12-13-2022 00:15-0400 Mean blood pressure 77 mm[Hg] Kaylinn Dokken [facility] 12-13-2022 00:15-0400 Respiratory rate 16 /min Kaylinn Dokken [facility] 12-13-2022 00:15-0400 SaO2% (BldA) [Mass fraction] 96 % Kaylinn Dokken [facility] 12-13-2022 00:15-0400 Systolic blood pressure 120 mm[Hg] Kaylinn Dokken [facility] 12-12-2022 23:39-0400 Diastolic blood pressure 47 mm[Hg] Kaylinn Dokken [facility] 12-12-2022 23:39-0400 Heart rate 70 /min Kaylinn Dokken [facility] 12-12-2022 23:39-0400 Mean blood pressure 77 mm[Hg] Kaylinn Dokken [facility] 12-12-2022 23:39-0400 Respiratory rate 25 /min Kaylinn Dokken [facility] 12-12-2022 23:39-0400 SaO2% (BldA) [Mass fraction] 95 % Kaylinn Dokken [facility] 12-12-2022 23:39-0400 Systolic blood pressure 136 mm[Hg] Kaylinn Dokken [facility] 12-12-2022 22:59-0400 Diastolic blood pressure 72 mm[Hg] Kaylinn Dokken [facility] 12-12-2022 22:59-0400 Heart rate 69 /min Kaylinn Dokken [facility] 12-12-2022 22:59-0400 Mean blood pressure 96 mm[Hg] Kaylinn Dokken [facility] 12-12-2022 22:59-0400 Respiratory rate 18 /min Kaylinn Dokken [facility] 12-12-2022 22:59-0400 SaO2% (BldA) [Mass fraction] 95 % Kaylinn Dokken [facility] 12-12-2022 22:59-0400 Systolic blood pressure 143 mm[Hg] Kaylinn Dokken [facility] 12-12-2022 22:04-0400 Respiratory rate 18 /min Bebetoylinn Dokken [facility] 12-12-2022 20:58-0400 Body temperature 98.24 [degF] Kaylinn Dokken [facility] 12-12-2022 20:58-0400 Heart rate 79 /min Kaylinn Dokken [facility] 12-12-2022 20:58-0400 Respiratory rate 18 /min Kaylinn Dokken [facility] 12-12-2022 10:45-0400 Diastolic blood pressure 75 mm[Hg] Services [facility] Work Phone: [facility] 12-12-2022 10:45-0400 Heart rate 84 /min Services [facility] Work Phone: [facility] 12-12-2022 10:45-0400 Respiratory rate 16 /min Services [facility] Work Phone: [facility] 12-12-2022 10:45-0400 SaO2% (BldA) [Mass fraction] 100 % Services [facility] Work Phone: [facility] 12-12-2022 10:45-0400 Systolic blood pressure 127 mm[Hg] Services [facility] Work Phone: [facility] 12-12-2022 09:01-0400 Body height 162.56 cm Services [facility] Work Phone: [facility] 12-12-2022 09:01-0400 Body weight 112.03 kg Services [facility] Work Phone: [facility] 12-11-2022 17:19-0400 Diastolic blood pressure 71 mm[Hg] Services [facility] Work Phone: [facility] 12-11-2022 17:19-0400 Heart rate 70 /min [facility] Work Phone: [facility] 12-11-2022 17:19-0400 Respiratory rate 20 /min [facility] Work Phone: [facility] 12-11-2022 17:19-0400 SaO2% (BldA) [Mass fraction] 97 % [facility] Work Phone: [facility] 12-11-2022 17:19-0400 Systolic blood pressure 131 mm[Hg] Services [facility] Work Phone: [facility] [facility] 12-11-2022 14:58-0400 Body height 160.02 cm [facility] Work Phone: [facility] 12-11-2022 14:58-0400 Body temperature 98.7 [degF] [facility] Work Phone: [facility] 12-11-2022 14:58-0400 Body weight 108.86 kg [facility] Work Phone: [facility] 12-10-2022 17:46-0400 Body height 160.02 cm [facility] Work Phone: [facility] 12-10-2022 17:46-0400 Body temperature 98.2 [degF] [facility] Work Phone: [facility] 12-10-2022 17:46-0400 Body weight 108.86 kg [facility] Work Phone: [facility] 12-10-2022 17:46-0400 Diastolic blood pressure 90 mm[Hg] [facility] Work Phone: [facility] 12-10-2022 17:46-0400 Heart rate 97 /min [facility] Work Phone: [facility] 12-10-2022 17:46-0400 Respiratory rate 15 /min [facility] Work Phone: [facility] 12-10-2022 17:46-0400 SaO2% (BldA) [Mass fraction] 99 % [facility] Work Phone: [facility] 12-10-2022 17:46-0400 Systolic blood pressure 135 mm[Hg] [facility] Work Phone: [facility] 12-09-2022 16:38-0400 Body height 160.02 cm [facility] Work Phone: [facility] 12-09-2022 16:38-0400 Body temperature 97.7 [degF] [facility] Work Phone: [facility] 12-09-2022 16:38-0400 Body weight 104.32 kg [facility] Work Phone: [facility] 12-09-2022 16:38-0400 Diastolic blood pressure 86 mm[Hg] [facility] Work Phone: [facility] 12-09-2022 16:38-0400 Heart rate 90 /min [facility] Work Phone: [facility] 12-09-2022 16:38-0400 Respiratory rate 20 /min [facility] Work Phone: [facility] 12-09-2022 16:38-0400 SaO2% (BldA) [Mass fraction] 98 % Services [facility] Work Phone: [facility] 12-09-2022 16:38-0400 Systolic blood pressure 125 mm[Hg] Services [facility] Work Phone: [facility] 12-07-2022 18:54-0400 Heart rate 70 /min Chandana Avery [facility] 12-07-2022 18:54-0400 Respiratory rate 16 /min Chandana Avery [facility] 12-07-2022 18:54-0400 SaO2% (BldA) [Mass fraction] 99 % Chandana Avery [facility] 12-07-2022 16:49-0400 Body temperature 98.78 [degF] Chandana Avery [facility] 12-07-2022 16:49-0400 Diastolic blood pressure 79 mm[Hg] Chandana Avery [facility] 12-07-2022 16:49-0400 Heart rate 84 /min Chandana Avery [facility] 12-07-2022 16:49-0400 Respiratory rate 18 /min Chandana Avery [facility] 12-07-2022 16:49-0400 SaO2% (BldA) [Mass fraction] 98 % Chandana Avery [facility] 12-07-2022 16:49-0400 Systolic blood pressure 116 mm[Hg] Chandana Avery [facility] 12-07-2022 10:20-0400 Body height 160.02 cm Services [facility] Work Phone: [facility] 12-07-2022 10:20-0400 Body temperature 97.6 [degF] [facility] Work Phone: [facility] 12-07-2022 10:20-0400 Body weight 110.1 kg Services [employer] Work Phone: [facility] 12-07-2022 10:20-0400 Diastolic blood pressure 82 mm[Hg] Services [employer] Work Phone: [facility] 12-07-2022 10:20-0400 Heart rate 98 /min Services [employer] Work Phone: [facility] 12-07-2022 10:20-0400 Respiratory rate 22 /min Services [facility] [employer] Work Phone: [facility] 12-07-2022 10:20-0400 SaO2% (BldA) [Mass fraction] 98 % Services [employer] Work Phone: [facility] 12-07-2022 10:20-0400 Systolic blood pressure 139 mm[Hg] Services [employer] Work Phone: [facility] 12-04-2022 20:24-0400 Body temperature 98.01 [degF] Allyson Nicole DO Work Phone: [employer] 12-04-2022 20:24-0400 Diastolic blood pressure 74 mm[Hg] Allyson Nicole DO Work Phone: [employer] 12-04-2022 20:24-0400 Heart rate 70 /min Allyson Nicole DO Work Phone: [employer] 12-04-2022 20:24-0400 Respiratory rate 18 /min Allyson Nicole DO Work Phone: [employer] 12-04-2022 20:24-0400 SaO2% (BldA) [Mass fraction] 98 % Allyson Nicole DO Work Phone: [employer] 12-04-2022 20:24-0400 Systolic blood pressure 127 mm[Hg] Allyson Nicole DO Work Phone: [employer] 12-04-2022 19:35-0400 Body height 160 cm Allyson Nicole DO Work Phone: [facility] 12-04-2022 19:35-0400 Body mass index (BMI) [Ratio] 42.16 kg/m2 Allyson Nicole DO Work Phone: [facility] 12-04-2022 19:35-0400 Body weight 107.96 kg Allyson Nicole DO Work Phone: [facility] 11-29-2022 16:15-0400 Body temperature 97.9 [degF] [facility] Work Phone: [facility] 11-29-2022 16:15-0400 Diastolic blood pressure 86 mm[Hg] [facility] Work Phone: [facility] 11-29-2022 16:15-0400 Heart rate 86 /min Services [facility] Work Phone: [facility] 11-29-2022 16:15-0400 Respiratory rate 18 /min [facility] Work Phone: [facility] 11-29-2022 16:15-0400 SaO2% (BldA) [Mass fraction] 98 % [facility] Work Phone: [facility] 11-29-2022 16:15-0400 Systolic blood pressure 113 mm[Hg] [facility] Work Phone: [facility] 11-29-2022 15:27-0400 Body height 160.02 cm [facility] Work Phone: [facility] 11-29-2022 15:27-0400 Body weight 108.9 kg [facility] Work Phone: [facility] 11-28-2022 10:51-0400 Diastolic blood pressure 95 mm[Hg] [facility] Work Phone: [facility] 11-28-2022 10:51-0400 Heart rate 84 /min [facility] Work Phone: [facility] 11-28-2022 10:51-0400 Respiratory rate 16 /min Services [employer] Work Phone: [facility] 11-28-2022 10:51-0400 SaO2% (BldA) [Mass fraction] 98 % Services [employer] Work Phone: [facility] 11-28-2022 10:51-0400 Systolic blood pressure 122 mm[Hg] Services [employer] Work Phone: [facility] 11-28-2022 10:11-0400 Inhaled oxygen flow rate 3 L/min Services [employer] Work Phone: [facility] 11-28-2022 08:54-0400 Body height 160.02 cm Services [facility] [employer] Work Phone: [facility] 11-28-2022 08:54-0400 Body temperature 97.9 [degF] Services [employer] Phone: [facility] 11-28-2022 08:54-0400 Body weight 108.86 kg Services [employer] Work Phone: [facility] 11-19-2022 10:30-0400 Body height 162.56 cm Glen Garza Other [employer] Other 11-19-2022 10:30-0400 Body mass index (BMI) [Ratio] 42.39 kg/m2 Glen Garza Other [employer] Other 11-19-2022 10:30-0400 Body weight 112.04 kg Glen Garza Other [employer] Other 11-19-2022 10:30-0400 Diastolic blood pressure 70 mm[Hg] Glen Garza Other [employer] Other 11-19-2022 10:30-0400 SaO2% (BldA) [Mass fraction] 97 % Glen Garza Other [employer] Other 11-19-2022 10:30-0400 Systolic blood pressure 102 mm[Hg] Glen Garza Other [facility] [employer] Other 11-18-2022 12:35-0400 Body height 160.02 cm [facility] Work Phone: [facility] 11-18-2022 12:35-0400 Body temperature 98.6 [degF] [facility] Work Phone: [facility] 11-18-2022 12:35-0400 Body weight 110.4 kg [facility] Work Phone: [facility] 11-18-2022 12:35-0400 Diastolic blood pressure 84 mm[Hg] [facility] Work Phone: [facility] 11-18-2022 12:35-0400 Heart rate 99 /min [facility] Work Phone: [facility] 11-18-2022 12:35-0400 Respiratory rate 20 /min [facility] Work Phone: [facility] 11-18-2022 12:35-0400 SaO2% (BldA) [Mass fraction] 98 % [facility] Work Phone: [facility] 11-18-2022 12:35-0400 Systolic blood pressure 142 mm[Hg] [facility] Work Phone: [facility] 11-16-2022 23:39-0400 Body height 160.02 cm [facility] Work Phone: [facility] 11-16-2022 23:39-0400 Body temperature 97.5 [degF] [facility] Work Phone: [facility] 11-16-2022 23:39-0400 Body weight 110 kg [facility] Work Phone: [facility] 11-16-2022 23:39-0400 Diastolic blood pressure 64 mm[Hg] [facility] Work Phone: [facility] 11-16-2022 23:39-0400 Heart rate 85 /min [facility] Work Phone: [facility] 11-16-2022 23:39-0400 Respiratory rate 18 /min [facility] Work Phone: [facility] 11-16-2022 23:39-0400 SaO2% (BldA) [Mass fraction] 96 % [facility] Work Phone: [facility] 11-16-2022 23:39-0400 Systolic blood pressure 140 mm[Hg] [facility] Work Phone: [facility] 11-15-2022 18:19-0400 Body height 160.02 cm [facility] Work Phone: [facility] 11-15-2022 18:19-0400 Body temperature 97.8 [degF] [facility] Work Phone: [facility] 11-15-2022 18:19-0400 Body weight 111 kg [facility] Work Phone: [facility] 11-15-2022 18:19-0400 Diastolic blood pressure 76 mm[Hg] [facility] Work Phone: [facility] 11-15-2022 18:19-0400 Heart rate 96 /min [facility] Work Phone: [facility] 11-15-2022 18:19-0400 Respiratory rate 22 /min [facility] Work Phone: [facility] 11-15-2022 18:19-0400 SaO2% (BldA) [Mass fraction] 97 % [facility] Work Phone: [facility] 11-15-2022 18:19-0400 Systolic blood pressure 133 mm[Hg] [facility] Work Phone: [facility] 11-12-2022 21:47-0400 Body height 160.02 cm [facility] Work Phone: [facility] 11-12-2022 21:47-0400 Body temperature 98 [degF] [facility] Work Phone: [facility] 11-12-2022 21:47-0400 Body weight 108.86 kg [facility] Work Phone: [facility] 11-12-2022 21:47-0400 Diastolic blood pressure 81 mm[Hg] [facility] Work Phone: [facility] 11-12-2022 21:47-0400 Heart rate 81 /min [facility] Work Phone: [facility] 11-12-2022 21:47-0400 Respiratory rate 20 /min [facility] Work Phone: [facility] 11-12-2022 21:47-0400 SaO2% (BldA) [Mass fraction] 96 % [facility] Work Phone: [facility] 11-12-2022 21:47-0400 Systolic blood pressure 142 mm[Hg] [facility] Work Phone: [facility] 11-11-2022 15:39-0400 Body height 160.02 cm [facility] Work Phone: [facility] 11-11-2022 15:39-0400 Body temperature 97.6 [degF] [facility] Work Phone: [facility] 11-11-2022 15:39-0400 Body weight 109.45 kg [facility] Work Phone: [facility] 11-11-2022 15:39-0400 Diastolic blood pressure 109 mm[Hg] [facility] Work Phone: [facility] 11-11-2022 15:39-0400 Heart rate 105 /min [facility] Work Phone: [facility] 11-11-2022 15:39-0400 Respiratory rate 20 /min [facility] Work Phone: [facility] 11-11-2022 15:39-0400 SaO2% (BldA) [Mass fraction] 96 % [facility] Work Phone: [facility] 11-11-2022 15:39-0400 Systolic blood pressure 153 mm[Hg] [facility] Work Phone: [facility] 11-08-2022 09:05-0400 Body height 160.02 cm [facility] Work Phone: [facility] 11-08-2022 09:05-0400 Body temperature 97.7 [degF] [facility] Work Phone: [facility] 11-08-2022 09:05-0400 Body weight 108.86 kg [facility] Work Phone: [facility] 11-08-2022 09:05-0400 Diastolic blood pressure 76 mm[Hg] [facility] Work Phone: [facility] 11-08-2022 09:05-0400 Heart rate 95 /min [facility] Work Phone: [facility] 11-08-2022 09:05-0400 Respiratory rate 18 /min [facility] Work Phone: [facility] 11-08-2022 09:05-0400 SaO2% (BldA) [Mass fraction] 96 % [facility] Work Phone: [facility] 11-08-2022 09:05-0400 Systolic blood pressure 134 mm[Hg] [facility] Work Phone: [facility] 11-06-2022 09:00-0400 Body height 162.56 cm Rose Marie Shepherd Other [employer] Other 11-06-2022 09:00-0400 Body mass index (BMI) [Ratio] 41.36 kg/m2 Rose Marie Shepherd Other [employer] Other 11-06-2022 09:00-0400 Body weight 109.32 kg Rose Marie Shepherd Other [facility] [employer] Other 11-06-2022 09:00-0400 Diastolic blood pressure 76 mm[Hg] Rose Marie Shepherd Other [facility] [employer] Other 11-06-2022 09:00-0400 Systolic blood pressure 136 mm[Hg] Rose Marie Shepherd Other [facility] [employer] Other 11-01-2022 20:46-0400 Body height 160.02 cm [facility] Work Phone: [facility] 11-01-2022 20:46-0400 Body temperature 97.8 [degF] [facility] Work Phone: [facility] 11-01-2022 20:46-0400 Body weight 109.76 kg [facility] Work Phone: [facility] 11-01-2022 20:46-0400 Diastolic blood pressure 92 mm[Hg] [facility] Work Phone: [facility] 11-01-2022 20:46-0400 Heart rate 90 /min [facility] Work Phone: [facility] 11-01-2022 20:46-0400 Respiratory rate 12 /min [facility] Work Phone: [facility] 11-01-2022 20:46-0400 SaO2% (BldA) [Mass fraction] 97 % [facility] Work Phone: [facility] 11-01-2022 20:46-0400 Systolic blood pressure 138 mm[Hg] [facility] Work Phone: [facility] 10-31-2022 09:05-0400 Body height 160.02 cm [facility] Work Phone: [facility] 10-31-2022 09:05-0400 Body weight 108.86 kg [facility] Work Phone: [facility] 10-25-2022 21:56-0400 Body height 160.02 cm [facility] Work Phone: [facility] 10-25-2022 21:56-0400 Body temperature 98.1 [degF] [facility] Work Phone: [facility] 10-25-2022 21:56-0400 Body weight 104.32 kg [facility] Work Phone: [facility] 10-25-2022 21:56-0400 Diastolic blood pressure 77 mm[Hg] [facility] Work Phone: [facility] 10-25-2022 21:56-0400 Heart rate 90 /min [facility] Work Phone: [facility] 10-25-2022 21:56-0400 Respiratory rate 18 /min [facility] Work Phone: [facility] 10-25-2022 21:56-0400 SaO2% (BldA) [Mass fraction] 96 % [facility] Work Phone: [facility] 10-25-2022 21:56-0400 Systolic blood pressure 127 mm[Hg] [facility] Work Phone: [facility] 10-23-2022 12:21-0400 Body temperature 97.6 [degF] [facility] Work Phone: [facility] 10-23-2022 12:20-0400 Body height 160.02 cm [facility] Work Phone: [facility] 10-23-2022 12:20-0400 Body weight 108.86 kg [facility] Work Phone: [facility] 10-23-2022 12:20-0400 Diastolic blood pressure 89 mm[Hg] [facility] Work Phone: [facility] 10-23-2022 12:20-0400 Heart rate 87 /min [facility] Work Phone: [facility] 10-23-2022 12:20-0400 Respiratory rate 20 /min [facility] Work Phone: [facility] 10-23-2022 12:20-0400 SaO2% (BldA) [Mass fraction] 97 % [facility] Work Phone: [facility] 10-23-2022 12:20-0400 Systolic blood pressure 133 mm[Hg] [facility] Work Phone: [facility] 10-16-2022 16:24-0400 Body height 160.02 cm [facility] Work Phone: [facility] 10-16-2022 16:24-0400 Body temperature 97.7 [degF] [facility] Work Phone: [facility] 10-16-2022 16:24-0400 Body weight 105.7 kg [facility] Work Phone: [facility] 10-16-2022 16:24-0400 Diastolic blood pressure 95 mm[Hg] [facility] Work Phone: [facility] 10-16-2022 16:24-0400 Heart rate 82 /min [facility] Work Phone: [facility] 10-16-2022 16:24-0400 Respiratory rate 16 /min [facility] Work Phone: [facility] 10-16-2022 16:24-0400 SaO2% (BldA) [Mass fraction] 96 % [facility] Work Phone: [facility] 10-16-2022 16:24-0400 Systolic blood pressure 122 mm[Hg] [facility] Work Phone: [facility] 10-11-2022 17:34-0400 Body height 160.02 cm [facility] Work Phone: [facility] 10-11-2022 17:34-0400 Body temperature 97.7 [degF] [facility] Work Phone: [facility] 10-11-2022 17:34-0400 Body weight 106.95 kg [facility] Work Phone: [facility] 10-11-2022 17:34-0400 Diastolic blood pressure 82 mm[Hg] [facility] Work Phone: [facility] 10-11-2022 17:34-0400 Heart rate 90 /min [facility] Work Phone: [facility] 10-11-2022 17:34-0400 Respiratory rate 18 /min [facility] Work Phone: [facility] 10-11-2022 17:34-0400 SaO2% (BldA) [Mass fraction] 97 % [facility] Work Phone: [facility] 10-11-2022 17:34-0400 Systolic blood pressure 126 mm[Hg] [facility] Work Phone: [facility] 10-07-2022 12:25-0400 Body height 162.56 cm [facility] Work Phone: [facility] 10-07-2022 12:25-0400 Body temperature 97.7 [degF] [facility] Work Phone: [facility] 10-07-2022 12:25-0400 Body weight 106 kg [facility] Work Phone: [facility] 10-07-2022 12:25-0400 Diastolic blood pressure 81 mm[Hg] [facility] Work Phone: [facility] 10-07-2022 12:25-0400 Heart rate 85 /min [facility] Work Phone: [facility] 10-07-2022 12:25-0400 Respiratory rate 20 /min [facility] Work Phone: [facility] 10-07-2022 12:25-0400 SaO2% (BldA) [Mass fraction] 97 % [facility] Work Phone: [facility] 10-07-2022 12:25-0400 Systolic blood pressure 154 mm[Hg] [facility] Work Phone: [facility] 10-04-2022 18:16-0400 Body height 162.56 cm [facility] Work Phone: [facility] 10-04-2022 18:16-0400 Body temperature 98.1 [degF] [facility] Work Phone: [facility] 10-04-2022 18:16-0400 Body weight 107.2 kg [facility] Work Phone: [facility] 10-04-2022 18:16-0400 Diastolic blood pressure 80 mm[Hg] [facility] Work Phone: [facility] 10-04-2022 18:16-0400 Heart rate 89 /min [facility] Work Phone: [facility] 10-04-2022 18:16-0400 Respiratory rate 18 /min [facility] Work Phone: [facility] 10-04-2022 18:16-0400 SaO2% (BldA) [Mass fraction] 96 % [facility] Work Phone: [facility] 10-04-2022 18:16-0400 Systolic blood pressure 165 mm[Hg] [facility] Work Phone: [facility] 10-02-2022 19:44-0400 Diastolic blood pressure 84 mm[Hg] [facility] Work Phone: [facility] 10-02-2022 19:44-0400 Heart rate 77 /min [facility] Work Phone: [facility] 10-02-2022 19:44-0400 Respiratory rate 20 /min [facility] Work Phone: [facility] 10-02-2022 19:44-0400 Systolic blood pressure 130 mm[Hg] [facility] Work Phone: [facility] 10-02-2022 18:59-0400 Body height 162.56 cm [facility] Work Phone: [facility] 10-02-2022 18:59-0400 Body temperature 98 [degF] [facility] Work Phone: [facility] 10-02-2022 18:59-0400 Body weight 108.8 kg [facility] Work Phone: [facility] 10-02-2022 18:59-0400 SaO2% (BldA) [Mass fraction] 96 % [facility] Work Phone: [facility] 09-28-2022 18:45-0400 Diastolic blood pressure 52 mm[Hg] [facility] Work Phone: [facility] 09-28-2022 18:45-0400 Heart rate 81 /min [facility] Work Phone: [facility] 09-28-2022 18:45-0400 Respiratory rate 20 /min [facility] Work Phone: [facility] 09-28-2022 18:45-0400 SaO2% (BldA) [Mass fraction] 97 % [facility] Work Phone: [facility] 09-28-2022 18:45-0400 Systolic blood pressure 139 mm[Hg] [facility] Work Phone: [facility] 09-28-2022 17:30-0400 Body height 160.02 cm [facility] Work Phone: [facility] 09-28-2022 17:30-0400 Body weight 108.86 kg [facility] Work Phone: [facility] 09-28-2022 17:28-0400 Body temperature 98.1 [degF] [facility] Work Phone: [facility] 09-26-2022 14:00-0400 Body height 162.56 cm Glen Garza Other [employer] Other 09-26-2022 14:00-0400 Diastolic blood pressure 70 mm[Hg] Glen Garza Other [employer] Other 09-26-2022 14:00-0400 SaO2% (BldA) [Mass fraction] 97 % Glen Garza Other [employer] Other 09-26-2022 14:00-0400 Systolic blood pressure 140 mm[Hg] Glen Garza Other [facility] [employer] Other 09-24-2022 17:58-0400 Body temperature 97.8 [degF] [facility] Work Phone: [facility] 09-24-2022 17:58-0400 Diastolic blood pressure 63 mm[Hg] [facility] Work Phone: [facility] 09-24-2022 17:58-0400 Heart rate 84 /min [facility] Work Phone: [facility] 09-24-2022 17:58-0400 Respiratory rate 20 /min [facility] Work Phone: [facility] 09-24-2022 17:58-0400 SaO2% (BldA) [Mass fraction] 97 % [facility] Work Phone: [facility] 09-24-2022 17:58-0400 Systolic blood pressure 129 mm[Hg] [facility] Work Phone: [facility] 09-24-2022 17:56-0400 Body height 160.02 cm [facility] Work Phone: [facility] 09-24-2022 17:56-0400 Body weight 107 kg [facility] Work Phone: [facility] 09-22-2022 22:23-0400 Body temperature 98.1 [degF] [facility] Work Phone: [facility] 09-22-2022 22:23-0400 Diastolic blood pressure 67 mm[Hg] [facility] Work Phone: [facility] 09-22-2022 22:23-0400 Heart rate 87 /min [facility] Work Phone: [facility] 09-22-2022 22:23-0400 Respiratory rate 24 /min [facility] Work Phone: [facility] 09-22-2022 22:23-0400 SaO2% (BldA) [Mass fraction] 96 % [facility] Work Phone: [facility] 09-22-2022 22:23-0400 Systolic blood pressure 126 mm[Hg] [facility] Work Phone: [facility] 09-22-2022 22:17-0400 Body height 160.02 cm [facility] Work Phone: [facility] 09-22-2022 22:17-0400 Body weight 104.32 kg [facility] Work Phone: [facility] 09-19-2022 12:24-0400 Diastolic blood pressure 70 mm[Hg] [facility] Work Phone: [facility] 09-19-2022 12:24-0400 Heart rate 63 /min [facility] Work Phone: [facility] 09-19-2022 12:24-0400 Respiratory rate 16 /min [facility] Work Phone: [facility] 09-19-2022 12:24-0400 SaO2% (BldA) [Mass fraction] 96 % [facility] Work Phone: [facility] 09-19-2022 12:24-0400 Systolic blood pressure 111 mm[Hg] [facility] Work Phone: [facility] 09-19-2022 11:49-0400 Inhaled oxygen flow rate 3 L/min [facility] Work Phone: [facility] 09-19-2022 10:59-0400 Body height 160.02 cm [facility] Work Phone: [facility] 09-19-2022 10:59-0400 Body weight 104.32 kg [facility] Work Phone: [facility] 09-18-2022 15:42-0400 Body height 160.02 cm [facility] Work Phone: [facility] 09-18-2022 15:42-0400 Body temperature 97.7 [degF] [facility] Work Phone: [facility] 09-18-2022 15:42-0400 Body weight 104.32 kg [facility] Work Phone: [facility] 09-18-2022 15:42-0400 Diastolic blood pressure 80 mm[Hg] [facility] Work Phone: [facility] 09-18-2022 15:42-0400 Heart rate 82 /min [facility] Work Phone: [facility] 09-18-2022 15:42-0400 Respiratory rate 18 /min [facility] Work Phone: [facility] 09-18-2022 15:42-0400 SaO2% (BldA) [Mass fraction] 97 % [facility] Work Phone: [facility] 09-18-2022 15:42-0400 Systolic blood pressure 140 mm[Hg] [facility] Work Phone: [facility] 09-11-2022 14:00-0400 Diastolic blood pressure 71 mm[Hg] [facility] Work Phone: [facility] 09-11-2022 14:00-0400 Heart rate 86 /min [facility] Work Phone: [facility] 09-11-2022 14:00-0400 Respiratory rate 20 /min [facility] Work Phone: [facility] 09-11-2022 14:00-0400 Systolic blood pressure 109 mm[Hg] [facility] Work Phone: [facility] 09-11-2022 12:59-0400 Body height 160.02 cm [facility] Work Phone: [facility] 09-11-2022 12:59-0400 Body temperature 98 [degF] [facility] Work Phone: [facility] 09-11-2022 12:59-0400 Body weight 104.32 kg [facility] Work Phone: [facility] 09-11-2022 12:59-0400 SaO2% (BldA) [Mass fraction] 98 % [facility] Work Phone: [facility] 09-05-2022 15:23-0400 Body height 160.02 cm [facility] Work Phone: [facility] 09-05-2022 15:23-0400 Body temperature 97.9 [degF] [facility] Work Phone: [facility] 09-05-2022 15:23-0400 Body weight 105.25 kg [facility] Work Phone: [facility] 09-05-2022 15:23-0400 Diastolic blood pressure 90 mm[Hg] [facility] Work Phone: [facility] 09-05-2022 15:23-0400 Heart rate 90 /min [facility] Work Phone: [facility] 09-05-2022 15:23-0400 Respiratory rate 20 /min [facility] Work Phone: [facility] 09-05-2022 15:23-0400 SaO2% (BldA) [Mass fraction] 98 % [facility] Work Phone: [facility] 09-05-2022 15:23-0400 Systolic blood pressure 151 mm[Hg] [facility] Work Phone: [facility] 09-04-2022 19:11-0400 Body temperature 98.42 [degF] Pedro Pablo Chance [facility] 09-04-2022 19:11-0400 Diastolic blood pressure 104 mm[Hg] Pedro Pablo Chance [facility] 09-04-2022 19:11-0400 Heart rate 101 /min Pedro Pablo Chance [facility] 09-04-2022 19:11-0400 Respiratory rate 18 /min Pedro Pablo Chance [facility] 09-04-2022 19:11-0400 SaO2% (BldA) [Mass fraction] 100 % Pedro Pablo Chance [facility] 09-04-2022 19:11-0400 Systolic blood pressure 141 mm[Hg] Pedro Pablo Chance [facility] 09-04-2022 10:00-0400 Body height 162.56 cm Glen Garza Other [employer] [facility] [employer] Other 09-04-2022 10:00-0400 Body mass index (BMI) [Ratio] 40.16 kg/m2 Glen Garza Other [employer] Other 09-04-2022 10:00-0400 Body weight 106.14 kg Glen Garza Other [employer] Other 09-04-2022 10:00-0400 Diastolic blood pressure 70 mm[Hg] Glen Garza Other [employer] Other 09-04-2022 10:00-0400 SaO2% (BldA) [Mass fraction] 99 % Glen Garza Other [facility] [employer] Other 09-04-2022 10:00-0400 Systolic blood pressure 110 mm[Hg] Glen Garza Other [facility] [employer] Other 09-01-2022 15:00-0400 Body height 162.56 cm [facility] Work Phone: [facility] 09-01-2022 15:00-0400 Body temperature 97.7 [degF] [facility] Work Phone: [facility] 09-01-2022 15:00-0400 Body weight 104 kg [facility] Work Phone: [facility] 09-01-2022 15:00-0400 Diastolic blood pressure 73 mm[Hg] [facility] Work Phone: [facility] 09-01-2022 15:00-0400 Heart rate 96 /min [facility] Work Phone: [facility] 09-01-2022 15:00-0400 Respiratory rate 20 /min [facility] Work Phone: [facility] 09-01-2022 15:00-0400 SaO2% (BldA) [Mass fraction] 100 % [facility] Work Phone: [facility] 09-01-2022 15:00-0400 Systolic blood pressure 132 mm[Hg] [facility] Work Phone: [facility] 08-31-2022 20:05-0400 Body height 160.02 cm [facility] Work Phone: [facility] 08-31-2022 20:05-0400 Body temperature 97.8 [degF] [facility] Work Phone: [facility] 08-31-2022 20:05-0400 Body weight 103.7 kg [facility] Work Phone: [facility] 08-31-2022 20:05-0400 Diastolic blood pressure 76 mm[Hg] [facility] Work Phone: [facility] 08-31-2022 20:05-0400 Heart rate 94 /min [facility] Work Phone: [facility] 08-31-2022 20:05-0400 Respiratory rate 18 /min [facility] Work Phone: [facility] 08-31-2022 20:05-0400 SaO2% (BldA) [Mass fraction] 98 % [facility] Work Phone: [facility] 08-31-2022 20:05-0400 Systolic blood pressure 134 mm[Hg] [facility] Work Phone: [facility] 08-26-2022 15:35-0400 Body height 160.02 cm [facility] Work Phone: [facility] 08-26-2022 15:35-0400 Body temperature 98.1 [degF] [facility] Work Phone: [facility] 08-26-2022 15:35-0400 Body weight 104.6 kg [facility] Work Phone: [facility] 08-26-2022 15:35-0400 Diastolic blood pressure 59 mm[Hg] [facility] Work Phone: [facility] 08-26-2022 15:35-0400 Heart rate 94 /min [facility] Work Phone: [facility] 08-26-2022 15:35-0400 Respiratory rate 18 /min [facility] Work Phone: [facility] 08-26-2022 15:35-0400 SaO2% (BldA) [Mass fraction] 99 % [facility] Work Phone: [facility] 08-26-2022 15:35-0400 Systolic blood pressure 119 mm[Hg] [facility] Work Phone: [facility] 08-21-2022 08:40-0400 Body height 162.56 cm Rose Marie Shepherd Other [employer] Other 08-21-2022 08:40-0400 Body mass index (BMI) [Ratio] 40.16 kg/m2 [employer] Other [employer] Other 08-21-2022 08:40-0400 Body weight 106.14 kg Rose Marie [employer] Other [employer] Other 08-21-2022 08:40-0400 Diastolic blood pressure 78 mm[Hg] [employer] Other [employer] Other 08-21-2022 08:40-0400 Systolic blood pressure 132 mm[Hg] [employer] Other [employer] Other 08-17-2022 00:19-0400 Diastolic blood pressure 62 mm[Hg] [facility] Work Phone: [facility] 08-17-2022 00:19-0400 Heart rate 75 /min [facility] Work Phone: [facility] 08-17-2022 00:19-0400 Respiratory rate 20 /min [facility] Work Phone: [facility] 08-17-2022 00:19-0400 SaO2% (BldA) [Mass fraction] 97 % [facility] Work Phone: [facility] 08-17-2022 00:19-0400 Systolic blood pressure 127 mm[Hg] [facility] Work Phone: [facility] 08-16-2022 21:20-0400 Body height 160.02 cm Services [facility] Work Phone: [facility] 08-16-2022 21:20-0400 Body temperature 97.9 [degF] [facility] Work Phone: [facility] 08-16-2022 21:20-0400 Body weight 104.32 kg [facility] Work Phone: [facility] 08-13-2022 17:20-0400 Body height 160.02 cm [facility] Work Phone: [facility] 08-13-2022 17:20-0400 Body temperature 97.8 [degF] [facility] Work Phone: [facility] 08-13-2022 17:20-0400 Body weight 102.85 kg [facility] Work Phone: [facility] 08-13-2022 17:20-0400 Diastolic blood pressure 81 mm[Hg] [facility] Work Phone: [facility] 08-13-2022 17:20-0400 Heart rate 92 /min [facility] Work Phone: [facility] 08-13-2022 17:20-0400 Respiratory rate 20 /min [facility] Work Phone: [facility] 08-13-2022 17:20-0400 SaO2% (BldA) [Mass fraction] 96 % [facility] Work Phone: [facility] 08-13-2022 17:20-0400 Systolic blood pressure 140 mm[Hg] [facility] Work Phone: [facility] 08-06-2022 17:12-0400 Body height 160.02 cm [facility] Work Phone: [facility] 08-06-2022 17:12-0400 Body temperature 97.7 [degF] [facility] Work Phone: [facility] 08-06-2022 17:12-0400 Body weight 103.3 kg [facility] Work Phone: [facility] 08-06-2022 17:12-0400 Diastolic blood pressure 76 mm[Hg] [facility] Work Phone: [facility] 08-06-2022 17:12-0400 Heart rate 78 /min [facility] Work Phone: [facility] 08-06-2022 17:12-0400 Respiratory rate 20 /min [facility] Work Phone: [facility] 08-06-2022 17:12-0400 SaO2% (BldA) [Mass fraction] 98 % [facility] Work Phone: [facility] 08-06-2022 17:12-0400 Systolic blood pressure 130 mm[Hg] [facility] Work Phone: [facility] 08-02-2022 21:20-0400 Body height 160.02 cm [facility] Work Phone: [facility] 08-02-2022 21:20-0400 Body temperature 97.6 [degF] [facility] Work Phone: [facility] 08-02-2022 21:20-0400 Body weight 104.55 kg [facility] Work Phone: [facility] 08-02-2022 21:20-0400 Diastolic blood pressure 84 mm[Hg] [facility] Work Phone: [facility] 08-02-2022 21:20-0400 Heart rate 74 /min [facility] Work Phone: [facility] 08-02-2022 21:20-0400 Respiratory rate 22 /min [facility] Work Phone: [facility] 08-02-2022 21:20-0400 SaO2% (BldA) [Mass fraction] 97 % [facility] Work Phone: [facility] 08-02-2022 21:20-0400 Systolic blood pressure 174 mm[Hg] [facility] Work Phone: [facility] 06-16-2022 12:24-0400 Body height 160.02 cm [facility] Work Phone: [facility] 06-16-2022 12:24-0400 Body temperature 97.5 [degF] [facility] Work Phone: [facility] 06-16-2022 12:24-0400 Body weight 104 kg [facility] Work Phone: [facility] 06-16-2022 12:24-0400 Diastolic blood pressure 68 mm[Hg] [facility] Work Phone: [facility] 06-16-2022 12:24-0400 Heart rate 69 /min [facility] Work Phone: [facility] 06-16-2022 12:24-0400 Respiratory rate 20 /min [facility] Work Phone: [facility] 06-16-2022 12:24-0400 SaO2% (BldA) [Mass fraction] 97 % [facility] Work Phone: [facility] 06-16-2022 12:24-0400 Systolic blood pressure 151 mm[Hg] [facility] Work Phone: [facility] 03-30-2022 13:10-0500 Diastolic blood pressure 60 mm[Hg] [facility] Work Phone: [facility] 03-30-2022 13:10-0500 Heart rate 79 /min [facility] Work Phone: [facility] 03-30-2022 13:10-0500 Respiratory rate 18 /min [facility] Work Phone: [facility] 03-30-2022 13:10-0500 SaO2% (BldA) [Mass fraction] 98 % [facility] Work Phone: [facility] 03-30-2022 13:10-0500 Systolic blood pressure 118 mm[Hg] [facility] Work Phone: [facility] 03-30-2022 10:09-0500 Body height 160.02 cm [facility] Work Phone: [facility] 03-30-2022 10:09-0500 Body temperature 98.3 [degF] [facility] Work Phone: [facility] 03-30-2022 10:09-0500 Body weight 107.95 kg [facility] Work Phone: [facility] 03-19-2022 18:13-0500 Diastolic blood pressure 64 mm[Hg] [facility] Work Phone: [facility] 03-19-2022 18:13-0500 Heart rate 51 /min [facility] Work Phone: [facility] 03-19-2022 18:13-0500 Respiratory rate 20 /min [facility] Work Phone: [facility] 03-19-2022 18:13-0500 SaO2% (BldA) [Mass fraction] 97 % [facility] Work Phone: [facility] 03-19-2022 18:13-0500 Systolic blood pressure 121 mm[Hg] [facility] Work Phone: [facility] 03-19-2022 14:37-0500 Body height 160.02 cm [facility] Work Phone: [facility] 03-19-2022 14:37-0500 Body temperature 97.5 [degF] [facility] Work Phone: [facility] 03-19-2022 14:37-0500 Body weight 108.25 kg [facility] Work Phone: [facility] 03-17-2022 18:14-0500 Diastolic blood pressure 79 mm[Hg] [facility] Work Phone: [facility] 03-17-2022 18:14-0500 Heart rate 79 /min [facility] Work Phone: [facility] 03-17-2022 18:14-0500 Respiratory rate 19 /min [facility] Work Phone: [facility] 03-17-2022 18:14-0500 SaO2% (BldA) [Mass fraction] 98 % [facility] Work Phone: [facility] 03-17-2022 18:14-0500 Systolic blood pressure 118 mm[Hg] [facility] Work Phone: [facility] 03-17-2022 14:45-0500 Body height 160.02 cm [facility] Work Phone: [facility] 03-17-2022 14:45-0500 Body temperature 97.9 [degF] [facility] Work Phone: [facility] 03-17-2022 14:45-0500 Body weight 108.85 kg [facility] Work Phone: [facility] 03-14-2022 19:09-0500 Diastolic blood pressure 61 mm[Hg] [facility] Work Phone: [facility] 03-14-2022 19:09-0500 Heart rate 61 /min [facility] Work Phone: [facility] 03-14-2022 19:09-0500 Respiratory rate 16 /min [facility] Work Phone: [facility] 03-14-2022 19:09-0500 SaO2% (BldA) [Mass fraction] 96 % [facility] Work Phone: [facility] 03-14-2022 19:09-0500 Systolic blood pressure 111 mm[Hg] [facility] Work Phone: [facility] 03-14-2022 15:23-0500 Body height 160.02 cm [facility] Work Phone: [facility] 03-14-2022 15:23-0500 Body temperature 97.4 [degF] [facility] Work Phone: [facility] 03-14-2022 15:23-0500 Body weight 108.3 kg [facility] Work Phone: [facility] 02-03-2022 21:30-0500 Body temperature 97.9 [degF] [facility] Work Phone: [facility] 02-03-2022 21:30-0500 Diastolic blood pressure 87 mm[Hg] [facility] Work Phone: [facility] 02-03-2022 21:30-0500 Heart rate 70 /min [facility] Work Phone: [facility] 02-03-2022 21:30-0500 Respiratory rate 16 /min [facility] Work Phone: [facility] 02-03-2022 21:30-0500 SaO2% (BldA) [Mass fraction] 99 % [facility] Work Phone: [facility] 02-03-2022 21:30-0500 Systolic blood pressure 142 mm[Hg] [facility] Work Phone: [facility] 02-03-2022 17:12-0500 Body height 163.83 cm [facility] Work Phone: [facility] 02-03-2022 17:12-0500 Body weight 110 kg [facility] Work Phone: [facility] 01-21-2022 20:16-0400 Body height 160.02 cm [facility] Work Phone: [facility] 01-21-2022 20:16-0400 Body temperature 98.2 [degF] [facility] Work Phone: [facility] 01-21-2022 20:16-0400 Body weight 111.25 kg [facility] Work Phone: [facility] 01-21-2022 20:16-0400 Diastolic blood pressure 77 mm[Hg] [facility] Work Phone: [facility] 01-21-2022 20:16-0400 Heart rate 107 /min [facility] Work Phone: [facility] 01-21-2022 20:16-0400 Respiratory rate 22 /min [facility] Work Phone: [facility] 01-21-2022 20:16-0400 SaO2% (BldA) [Mass fraction] 98 % [facility] Work Phone: [facility] 01-21-2022 20:16-0400 Systolic blood pressure 134 mm[Hg] [facility] Work Phone: [facility] 11-14-2021 00:54-0400 Diastolic blood pressure 70 mm[Hg] [facility] Work Phone: [facility] 11-14-2021 00:54-0400 Heart rate 81 /min [facility] Work Phone: [facility] 11-14-2021 00:54-0400 Respiratory rate 20 /min [facility] Work Phone: [facility] 11-14-2021 00:54-0400 SaO2% (BldA) [Mass fraction] 99 % [facility] Work Phone: [facility] 11-14-2021 00:54-0400 Systolic blood pressure 122 mm[Hg] [facility] Work Phone: [facility] 11-13-2021 18:29-0400 Body height 160.02 cm [facility] Work Phone: [facility] 11-13-2021 18:29-0400 Body temperature 97.6 [degF] [facility] Work Phone: [facility] 11-13-2021 18:29-0400 Body weight 108.86 kg [facility] Work Phone: [facility] 10-18-2021 20:30-0400 Body height 160.02 cm [facility] Work Phone: [facility] 10-18-2021 20:30-0400 Body temperature 98 [degF] [facility] Work Phone: [facility] 10-18-2021 20:30-0400 Body weight 109.6 kg [facility] Work Phone: [facility] 10-18-2021 20:30-0400 Diastolic blood pressure 89 mm[Hg] [facility] Work Phone: [facility] [facility] 10-18-2021 20:30-0400 Heart rate 87 /min [facility] Work Phone: [facility] 10-18-2021 20:30-0400 Respiratory rate 22 /min [facility] Work Phone: [facility] 10-18-2021 20:30-0400 SaO2% (BldA) [Mass fraction] 99 % [facility] Work Phone: [facility] 10-18-2021 20:30-0400 Systolic blood pressure 149 mm[Hg] [facility] Work Phone: [facility] 10-10-2021 01:28-0400 Diastolic blood pressure 71 mm[Hg] [facility] Work Phone: [facility] 10-10-2021 01:28-0400 Heart rate 70 /min [facility] Work Phone: [facility] 10-10-2021 01:28-0400 Respiratory rate 18 /min [facility] Work Phone: [facility] 10-10-2021 01:28-0400 SaO2% (BldA) [Mass fraction] 98 % [facility] Work Phone: [facility] 10-10-2021 01:28-0400 Systolic blood pressure 159 mm[Hg] [facility] Work Phone: [facility] 10-09-2021 20:44-0400 Body height 160.02 cm [facility] Work Phone: [facility] 10-09-2021 20:44-0400 Body mass index (BMI) [Ratio] 42.5 kg/m2 [facility] Work Phone: [facility] 10-09-2021 20:44-0400 Body temperature 98.2 [degF] [facility] Work Phone: [facility] 10-09-2021 20:44-0400 Body weight 108.86 kg [facility] Work Phone: [facility] 09-13-2021 18:42-0400 Heart rate 93 /min [facility] Work Phone: [facility] 09-13-2021 17:16-0400 Body height 160.02 cm [facility] Work Phone: [facility] 09-13-2021 17:16-0400 Body mass index (BMI) [Ratio] 42.7 kg/m2 [facility] Work Phone: [facility] 09-13-2021 17:16-0400 Body temperature 98.5 [degF] [facility] Work Phone: [facility] 09-13-2021 17:16-0400 Body weight 109.45 kg [facility] Work Phone: [facility] 09-13-2021 17:16-0400 Diastolic blood pressure 78 mm[Hg] [facility] Work Phone: [facility] 09-13-2021 17:16-0400 Respiratory rate 20 /min [facility] Work Phone: [facility] 09-13-2021 17:16-0400 SaO2% (BldA) [Mass fraction] 96 % [facility] Work Phone: [facility] 09-13-2021 17:16-0400 Systolic blood pressure 136 mm[Hg] [facility] Work Phone: [facility] 03-30-2021 10:30-0500 Body height 162.56 cm Avery Goodman Other [employer] Other Encounters Encounter Date Encounter Type Care Provider Facility Start: 02-20-2024 End: 02-20-2024 Emergency department patient visit Nikhil Tubbs [facility] Start: 02-16-2024 End: 02-16-2024 Emergency department patient visit Nikhil Tubbs [facility] Start: 02-14-2024 End: 02-14-2024 Emergency department patient visit Jorge Mcintosh [facility] Start: 02-09-2024 End: 02-09-2024 Emergency department patient visit Allyson Hardwick MD Work Phone: [facility] Comment on above: Encounter for manage ment of wound VAC (Primary Dx); Postoperative pain after spinal surgery Start: 02-06-2024 End: 02-06-2024 Subsequent hospital visit by physician Judah Woodard MD Work Phone: [facility] [place] Comment on above: Lumbar disc herniati on with radiculopathy (Primary Dx) Start: 02-06-2024 End: 02-06-2024 ambulatory [facility] Start: 02-06-2024 End: 02-06-2024 Subsequent hospital visit by physician Tracie C-Arm 2 [facility] Comment on above: Back pain Start: 02-05-2024 End: 02-05-2024 Emergency department patient visit [facility] Work Phone: [facility] Work Phone: Start: 02-04-2024 End: 02-04-2024 Emergency department patient visit Jorge Mcintosh [facility] Start: 02-04-2024 End: 02-04-2024 Office outpatient new 45 minutes Dino Melgoza MD Work Phone: [facility] Comment on above: Chronic low back marily n without sciatica, unspecified back pain laterality (Primary Dx) Start: 02-04-2024 End: 02-05-2024 [facility] Start: 01-30-2024 End: 01-30-2024 Emergency department patient visit MARLEE FITZPATRICK [facility] Comment on above: Fall, initial encoun ter (Primary Dx); Chronic low back pain with left-sided sciatica, unspecified back pain laterality Start: 01-29-2024 End: 01-29-2024 ambulatory [facility] Start: 01-29-2024 End: 01-29-2024 Encounter for other preprocedural examination [facility] Start: 01-27-2024 End: 01-28-2024 [facility] Start: 01-27-2024 End: 01-28-2024 Subsequent hospital visit by physician Giulia Man MD Work Phone: [facility] 2 Comment on above: Chronic pain syndrom e (Primary Dx); Acute left-sided low back pain with left-sided sciatica; Left leg weakness Start: 01-26-2024 ambulatory GIULIA MAN [facility] Start: 01-26-2024 End: 01-27-2024 Emergency department patient visit Bib Bowman MD Work Phone: [facility] Comment on above: Acute left-sided low back pain with left-sided sciatica (Primary Dx) Start: 01-26-2024 End: 01-26-2024 Emergency department patient visit [facility] Work Phone: [facility] Work Phone: Start: 01-25-2024 End: 01-25-2024 Emergency department patient visit Jorge Mcintosh [facility] Start: 01-24-2024 End: 01-24-2024 Emergency department patient visit MARLEE FITZPATRICK [facility] Comment on above: Acute bilateral low back pain without sciatica (Primary Dx) Start: 01-23-2024 End: 01-23-2024 Emergency department patient visit Balbina Bryant [facility] Start: 01-21-2024 End: 01-21-2024 Emergency department patient visit MARLEE FITZPATRICK [facility] Comment on above: Acute left-sided low back pain with left-sided sciatica (Primary Dx) Start: 01-21-2024 ambulatory [facility] Start: 01-16-2024 End: 01-16-2024 Emergency department patient visit [facility] Work Phone: [facility] Work Phone: Start: 01-14-2024 End: 01-14-2024 Emergency department patient visit Nikhil Tubbs [facility] Start: 01-14-2024 End: 01-14-2024 ambulatory [facility] Start: 01-14-2024 End: 01-14-2024 Office outpatient new 60 minutes Judah Woodard MD Work Phone: [facility] Comment on above: Lumbar disc herniati on with radiculopathy (Primary Dx) Start: 01-13-2024 End: 01-13-2024 Emergency department patient visit MARLEE FITZPATRICK [facility] Emergency [facility] Comment on above: Acute midline low ba ck pain without sciatica (Primary Dx) Start: 01-10-2024 End: 01-10-2024 Emergency department patient visit MARLEE FITZPATRICK [facility] Comment on above: Chronic low back marily n with sciatica, sciatica laterality unspecified, unspecified back pain laterality (Primary Dx); Left leg weakness; Decreased sensation of leg; Lumbar disc herniation Start: 01-06-2024 End: 01-08-2024 ambulatory [facility] Start: 01-06-2024 End: 01-08-2024 Emergency department patient visit Ace Rodgers MD Work Phone: [facility] 1 Comment on above: Left leg weakness (P rimary Dx); Chronic back pain greater than 3 months duration Start: 01-06-2024 End: 01-06-2024 Emergency department patient visit Jorge Mcintosh [facility] Start: 01-01-2024 End: 01-04-2024 Evaluation and management of inpatient Ace Rodgers MD Work Phone: [facility] 6 Comment on above: Left leg weakness (P rimary Dx); Chronic midline low back pain, unspecified whether sciatica present; Spinal stenosis of lumbar region, unspecified whether neurogenic claudication present; Acute exacerbation of chronic low back pain Start: 12-30-2023 End: 12-30-2023 Emergency department patient visit [facility] Comment on above: Acute exacerbation o f chronic low back pain (Primary Dx) Start: 12-29-2023 End: 12-29-2023 Emergency department patient visit PHYSICIAN [facility] Start: 12-27-2023 End: 12-27-2023 Postop follow up visit related to original px Elke Adams MD Work Phone: [facility] Comment on above: Neuropathic pain (Pr imary Dx); Dehiscence of wound of skin, subsequent encounter; Status post insertion of spinal cord stimulator Start: 12-27-2023 End: 12-27-2023 ambulatory ELKE ADAMS [facility] Start: 12-26-2023 End: 12-26-2023 Emergency department patient visit Nikhil Tubbs [facility] Start: 12-26-2023 End: 12-26-2023 Emergency department patient visit Services [facility] Work Phone: [facility] Work Phone: Start: 12-26-2023 End: 12-26-2023 Emergency department patient visit Raj Ayers Facility:[facility] Start: 12-24-2023 End: 12-24-2023 Emergency department patient visit Balbina Bryant [facility] Start: 12-24-2023 End: 12-24-2023 Office outpatient visit 15 minutes Chidi Joseph MD Work Phone: [facility] Comment on above: Hepatitis C virus in fection cured after antiviral drug therapy; Hepatic fibrosis, advanced fibrosis Start: 12-24-2023 End: 12-24-2023 ambulatory CHIDI JOSEPH [facility] Start: 12-23-2023 [facility]: [facility] Work Phone: Start: 12-23-2023 End: 12-23-2023 ambulatory CHIDI JOSEPH [facility] Start: 12-21-2023 End: 12-21-2023 Emergency department patient visit NO ASSIGNED PCP GENERIC PROVIDER [facility] Start: 12-20-2023 End: 12-20-2023 Emergency department patient visit Daysi Linder HIM SPECIALIST-LEAD PROGRAMMER Facility:[facility] Start: 12-18-2023 End: 12-19-2023 Emergency department patient visit NO ASSIGNED PCP GENERIC PROVIDER [facility] Start: 12-15-2023 End: 12-15-2023 Emergency department patient visit PABLO GERONIMO [facility] Start: 12-13-2023 End: 12-13-2023 Emergency department patient visit NO ASSIGNED PCP GENERIC PROVIDER [facility] Start: 12-13-2023 End: 12-13-2023 Emergency department patient visit Jorge Mcintosh [facility] Start: 12-13-2023 End: 12-13-2023 ambulatory ELKE Ellsworth [facility] Start: 12-12-2023 End: 12-12-2023 Emergency department patient visit [facility] Work Phone: [facility] Work Phone: Start: 12-11-2023 End: 12-11-2023 Emergency department patient visit NO ASSIGNED PCP GENERIC PROVIDER [facility] Start: 12-10-2023 End: 12-10-2023 Emergency department patient visit ROBERTO APARICIO [facility] Start: 12-09-2023 End: 12-10-2023 Emergency department patient visit FELICE Martinez [facility] Start: 12-09-2023 End: 12-09-2023 Emergency department patient visit FELICE Martinez [facility] Start: 12-07-2023 End: 12-07-2023 Emergency department patient visit DOUG ALFONSO [facility] Start: 12-07-2023 End: 12-07-2023 Emergency department patient visit FELICE VELIZ [facility] Start: 12-06-2023 End: 12-07-2023 Emergency department patient visit CRISTOBAL GARIBAY [facility] Start: 12-06-2023 End: 12-06-2023 ambulatory ELKE [facility] Start: 12-05-2023 End: 12-05-2023 Emergency department patient visit Balbina Bryant Facility[facility] Start: 12-04-2023 End: 12-04-2023 Emergency department patient visit Ben Urbina MD Work Phone: [facility] Start: 12-01-2023 End: 12-02-2023 Emergency department patient visit [facility] Work Phone: [facility] Work Phone: Start: 12-01-2023 End: 12-01-2023 Emergency department patient visit Balbina Bryant [facility] Start: 11-29-2023 End: 11-29-2023 ambulatory ELKE [facility] Start: 11-27-2023 End: 11-27-2023 Emergency department patient visit [facility] Start: 11-26-2023 End: 11-27-2023 Emergency department patient visit No PCP Facility:[facility] Start: 11-26-2023 End: 11-26-2023 Emergency department patient visit Kristin Bryant Facility:[facility] Start: 11-25-2023 End: 11-25-2023 Emergency department patient visit Services [facility] Work Phone: [facility] Work Phone: Start: 11-24-2023 End: 11-24-2023 Emergency department patient visit [facility] Start: 11-22-2023 End: 11-22-2023 ambulatory ELKE [facility] Start: 11-13-2023 End: 11-13-2023 Evaluation and management of inpatient CRISTOBAL GARIBAY [facility] Start: 11-13-2023 End: 11-19-2023 Evaluation and management of inpatient NO ASSIGNED PCP GENERIC PROVIDER [facility] Start: 11-10-2023 End: 11-10-2023 Emergency department patient visit Services Evomail Work Phone: [facility] Work Phone: Start: 11-09-2023 End: 11-09-2023 Emergency department patient visit NO ASSIGNED PCP GENERIC PROVIDER [facility] Start: 11-09-2023 End: 11-09-2023 Emergency department patient visit NO ASSIGNED PCP GENERIC PROVIDER [facility] Start: 11-08-2023 End: 11-08-2023 ambulatory ELKE A [facility] Start: 11-08-2023 End: 11-08-2023 ambulatory CHIRAG REYNOSO [facility] Start: 11-06-2023 End: 11-06-2023 ambulatory PAULINE Seng [facility] Start: 11-06-2023 End: 11-06-2023 Encounter for other preprocedural examination PAULINE Seng [facility] Start: 11-05-2023 End: 11-05-2023 Emergency department patient visit Pedro Pablo Fletcher [facility] Start: 11-05-2023 End: 11-05-2023 ambulatory NO ASSIGNED PCP GENERIC PROVIDER [facility] Start: 11-02-2023 End: 11-02-2023 Emergency department patient visit Abby Villareal PA-C Facility:[facility] Start: 10-31-2023 End: 11-01-2023 ambulatory WICHO TUBBS [facility] Start: 10-30-2023 End: 10-31-2023 Emergency department patient visit Aaliyah Fischer Work Phone: [facility] Comment on above: Infection of superfi cial incisional surgical site after procedure, initial encounter (Primary Dx) Start: 10-30-2023 End: 10-30-2023 Emergency department patient visit Balbina Bryant [facility] Start: 10-26-2023 End: 10-26-2023 Emergency department patient visit Pedro Pablo Fletcher [facility] Start: 10-25-2023 End: 10-25-2023 ambulatory ELKE ADAMS [facility] Start: 10-19-2023 End: 10-19-2023 Emergency department patient visit [facility] Work Phone: [facility] Work Phone: Start: 10-11-2023 End: 10-16-2023 Evaluation and management of inpatient NO ASSIGNED PCP GENERIC PROVIDER [facility] Start: 10-11-2023 Evaluation and management of inpatient ELKE [facility] Start: 10-11-2023 End: 10-11-2023 ambulatory ELKE [facility] Start: 10-05-2023 End: 10-06-2023 Emergency department patient visit NO ASSIGNED PCP GENERIC PROVIDER [facility] Start: 10-05-2023 End: 10-05-2023 Emergency department patient visit [facility] Work Phone: [facility] Work Phone: Start: 10-05-2023 End: 10-05-2023 Emergency department patient visit Susu Lamar PA-C Facility:[facility] Start: 10-04-2023 End: 10-04-2023 Emergency department patient visit Jorge Mcintosh [facility] Start: 09-26-2023 End: 09-26-2023 Emergency department patient visit Cheyanne HORVATH Facility:[facility] Start: 09-25-2023 End: 09-25-2023 Emergency department patient visit Balbina Bryant [facility] Start: 09-21-2023 End: 09-21-2023 Emergency department patient visit Nikhil Tubbs [facility] Start: 09-20-2023 End: 09-20-2023 Emergency department patient visit Jorge Mcintosh [facility] Start: 09-19-2023 End: 09-19-2023 Emergency department patient visit NO ASSIGNED PCP GENERIC PROVIDER [facility] Start: 09-18-2023 ambulatory ELKE [facility] Start: 09-17-2023 End: 09-17-2023 ambulatory Dax Lira Facility: [facility] Start: 09-17-2023 End: 09-17-2023 Patient encounter procedure Dax Lira [facility] Start: 09-16-2023 End: 09-16-2023 Emergency department patient visit NO ASSIGNED PCP GENERIC PROVIDER [facility] Start: 09-16-2023 End: 09-16-2023 ambulatory NO ASSIGNED PCP GENERIC PROVIDER [facility] Start: 09-11-2023 End: 09-11-2023 ambulatory Ashia Ruiz Facility:[facility] Start: 09-11-2023 End: 09-11-2023 Patient encounter procedure Ashia Ruiz [facility] Start: 09-10-2023 End: 09-10-2023 Emergency department patient visit Benja Mishra DO Work Phone: [facility] Comment on above: Strain of lumbar reg ion, initial encounter (Primary Dx) Start: 09-09-2023 End: 09-09-2023 Emergency department patient visit Jorge Mcintosh [facility] Start: 09-08-2023 End: 09-08-2023 Emergency department patient visit [facility] Work Phone: [facility] Work Phone: Start: 09-06-2023 End: 09-06-2023 Emergency department patient visit Pedro Pablo Fletcher [facility] Start: 09-02-2023 End: 09-02-2023 Emergency department patient visit Jorge Mcintosh [facility] Start: 08-30-2023 End: 08-30-2023 Emergency department patient visit Nikhil Tubbs [facility] Start: 08-27-2023 End: 08-27-2023 ambulatory CHIRAG REYNOSO [facility] Start: 08-27-2023 End: 08-27-2023 Postop follow up visit related to original px Chirag Reynoso HIM SPECIALIST-LEAD PROGRAMMER Work Phone: [facility] Comment on above: Chronic back pain gr eater than 3 months duration (Primary Dx); Neuropathic pain Start: 08-21-2023 End: 08-21-2023 ambulatory ELKE ADAMS [facility] Start: 08-21-2023 End: 08-21-2023 Subsequent hospital visit by physician Elke Adams MD Work Phone: [facility] [place] Comment on above: Chronic back pain gr eater than 3 months duration (Primary Dx); Neuropathic pain; Continuous opioid dependence (Multi) Start: 08-17-2023 End: 08-17-2023 Emergency department patient visit Cheyanne Rosas TECHNICAL CONSULTANT Facility:[facility] Start: 08-16-2023 End: 08-16-2023 Emergency department patient visit Daysi Linder HIM SPECIALIST-LEAD PROGRAMMER Facility:[facility] Start: 08-15-2023 End: 08-16-2023 Emergency department patient visit Balbina Bryant [facility] Start: 08-14-2023 End: 08-14-2023 ambulatory Domenic Sher [facility] Start: 08-14-2023 End: 08-14-2023 Pain Management Domenic Sher [facility] Start: 08-12-2023 End: 08-12-2023 Emergency department patient visit Elisa Sánchez [facility] Start: 08-09-2023 End: 08-09-2023 Emergency department patient visit Keke Payne MD Work Phone: [facility] Start: 08-07-2023 End: 08-07-2023 ambulatory Ashia Ruiz Facility:[facility] Start: 08-07-2023 End: 08-07-2023 Patient encounter procedure Ashia Ruiz [facility] Start: 08-05-2023 End: 08-05-2023 Emergency department patient visit Pedro Pablo RauschAdrien Fletcher [facility] Start: 08-02-2023 End: 08-02-2023 Emergency department patient visit Nikhil Tubbs [facility] Start: 08-02-2023 End: 08-02-2023 ambulatory ELKE Seng [facility] Start: 08-02-2023 End: 08-02-2023 Encounter for other preprocedural examination [facility] Start: 07-31-2023 End: 07-31-2023 Emergency department patient visit Balbina Starreduard [facility] Start: 07-26-2023 End: 07-26-2023 ambulatory SLIME SHERWOOD [facility] Start: 07-26-2023 End: 07-26-2023 Emergency department patient visit Jorge Mcintosh [facility] Start: 07-20-2023 End: 07-20-2023 Emergency department patient visit Nikhil Tubbs [facility] Start: 07-17-2023 ambulatory Balbina Bryant Facility :[facility] Start: 07-17-2023 End: 07-17-2023 ambulatory Cheyanne Rosas Facility:[facility] Start: 07-17-2023 End: 07-17-2023 Patient encounter procedure Cheyanne Rosas [facility] Start: 07-17-2023 End: 07-17-2023 Well adult monitoring check done Cheyanne Rosas [facility] Start: 07-15-2023 End: 07-15-2023 ambulatory XXXX NONE Facility:[facility] Start: 07-15-2023 End: 07-15-2023 Pain Management Dory Shepherd [facility] Start: 07-14-2023 End: 07-14-2023 Emergency department patient visit Nikhil Tubbs [facility] Start: 07-11-2023 ambulatory Balbina Bryant Facility :[facility] Start: 07-11-2023 End: 07-11-2023 Emergency department patient visit [facility] Bridger Bryant 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 Start: 07-04-2023 End: 07-04-2023 Emergency department patient visit [facility] Work Phone: [facility] Work Phone: Start: 06-29-2023 End: 06-29-2023 Emergency department patient visit Nikhil Tubbs [facility] Start: 06-27-2023 End: 06-27-2023 Emergency department patient visit Nikhil Tubbs [facility] Start: 06-26-2023 End: 06-26-2023 Emergency department patient visit ELIZABETH Ferrell Work Phone: [facility] [facility] Work Phone: Start: 06-24-2023 End: 06-24-2023 Emergency department patient visit [facility] Brid[facility] zander [facility] Start: 06-22-2023 End: 06-22-2023 ambulatory Sherron Susie CHAUDHARI [place] Start: 06-22-2023 End: 06-22-2023 Emergency department patient visit Nikhil Tubbs [facility] Start: 06-22-2023 End: 06-22-2023 ambulatory Sherron Susie CHAUDHARI [facility] Start: 06-17-2023 End: 06-17-2023 ambulatory SLIME SHERWOOD [facility] Start: 06-15-2023 End: 06-15-2023 Emergency department patient visit [facility] Start: 06-15-2023 End: 06-15-2023 Emergency department patient visit MARLEE FITZPATRICK [facility] Comment on above: Chronic back pain, u nspecified back location, unspecified back pain laterality (Primary Dx) Start: 06-11-2023 End: 06-11-2023 Emergency department patient visit Elisa Sánchez [facility] Start: 06-08-2023 End: 06-08-2023 Emergency department patient visit Allyson Nicole DO Work Phone: [facility] Start: 06-05-2023 End: 06-05-2023 ambulatory ELKE ADAMS [facility] Start: 06-05-2023 End: 06-05-2023 Office outpatient new 45 minutes Elke Adams MD Work Phone: [facility] Comment on above: Chronic back pain gr eater than 3 months duration (Primary Dx); Neuropathic pain Start: 06-03-2023 End: 06-03-2023 Emergency department patient visit Jorge Mcintosh [facility] Start: 06-01-2023 End: 06-01-2023 Emergency department patient visit ELIZABETH Lewis Mariaelena Work Phone: [facility] Work Phone: Start: 05-31-2023 End: 05-31-2023 Emergency department patient visit Jorge Mcintosh [facility] Start: 05-26-2023 End: 05-26-2023 Emergency department patient visit Pedro Pablo Fletcher [facility] Start: 05-25-2023 End: 05-25-2023 Emergency department patient visit ELIZABETH Lewis Mariaelena Work Phone: [facility] Work Phone: Start: 05-24-2023 End: 05-24-2023 Emergency department patient visit Nikhil Tubbs [facility] Start: 05-20-2023 End: 05-20-2023 Office outpatient new 45 minutes Belkis Hernandez DO Work Phone: [facility] Comment on above: [facility] arthritis (Prima ry Dx); Right wrist pain Start: 05-20-2023 End: 05-20-2023 ambulatory BELKIS HERNANDEZ [facility] Start: 05-19-2023 End: 05-19-2023 Emergency department patient visit PHYSICIAN YENNI BLAIR [facility] Work Phone: Start: 05-16-2023 End: 05-16-2023 Emergency department patient visit Nikhil Tubbs [facility] Start: 05-15-2023 End: 05-15-2023 ambulatory PHYSICIAN [facility] Work Phone: Start: 05-15-2023 End: 05-15-2023 Patient encounter procedure PHYSICIAN NO [facility] Work Phone: Start: 05-14-2023 End: 05-14-2023 Emergency department patient visit Jorge Mcintosh [facility] Start: 05-12-2023 End: 05-12-2023 Emergency department patient visit Nikhil Tubbs [facility] Start: 05-11-2023 End: 05-11-2023 Emergency department patient visit Jorge Mcintosh [facility] Start: 05-08-2023 End: 05-08-2023 Emergency department patient visit Balbina Starreduard [facility] Start: 05-05-2023 End: 05-05-2023 Emergency department patient visit PHYSICIAN NO [facility] Work Phone: Start: 05-04-2023 End: 05-04-2023 Emergency department patient visit Pedro Pablo Fletcher Facility[place] Start: 05-03-2023 End: 05-03-2023 Emergency department patient visit [facility] Start: 04-30-2023 End: 04-30-2023 Emergency department patient visit Jorge Arnaldo Facility[facility] Start: 04-27-2023 End: 04-28-2023 Emergency department patient visit Sal Juarez MD Work Phone: [facility] Start: 04-26-2023 End: 04-26-2023 [facility] Start: 04-22-2023 End: 04-22-2023 Emergency department patient visit Pedro Pablo Fletcher [facility] Start: 04-19-2023 End: 04-19-2023 ambulatory CHIDI JOSEPH [facility] Start: 04-12-2023 End: 04-12-2023 Emergency department patient visit [facility] Work Phone: Start: 04-11-2023 End: 04-11-2023 Emergency department patient visit [facility] Start: 04-10-2023 End: 04-11-2023 Emergency department patient visit Pedro Pablo Fletcher [facility] Start: 04-08-2023 End: 04-08-2023 Emergency department patient visit Dory Castañeda PA-C Facility:[facility] Start: 04-05-2023 End: 04-05-2023 Emergency department patient visit Nikhil Tubbs [facility] Start: 04-02-2023 End: 04-02-2023 Emergency department patient visit Elisa Sánchez [facility] Start: 04-01-2023 End: 04-01-2023 Office consultation new/estab patient 60 min Chidi Joseph MD Work Phone: [facility] Comment on above: Continuous opioid de pendence (CMS/HCC) (Primary Dx); Chronic hepatitis C without hepatic coma (CMS/HCC) Start: 04-01-2023 End: 04-01-2023 ambulatory ANTONIO Mukund [facility] Start: 03-29-2023 End: 03-29-2023 Emergency department patient visit ELIZABETH Veliz Work Phone: [facility] Work Phone: Start: 03-26-2023 End: 03-26-2023 Emergency department patient visit Jorge Mcintosh [facility] Start: 2023 End: 2023 Emergency department patient visit ELIZABETH Veliz Work Phone: [facility] Work Phone: Start: 03-23-2023 End: 03-23-2023 Emergency department patient visit Nikhil Tubbs [facility] Start: 03-20-2023 End: 03-20-2023 Emergency department patient visit Elisa Sánchez [facility] Start: 03-11-2023 End: 03-11-2023 Emergency department patient visit Balbina Bryant [facility] Start: 03-09-2023 End: 03-09-2023 Emergency department patient visit PHYSICIAN YENNI BLAIR [facility] Work Phone: Start: 02-22-2023 ambulatory Balbina Bryant Facility [facility] Start: 02-21-2023 End: 02-21-2023 Emergency department patient visit Services [facility] Work Phone: [facility] Work Phone: Start: 02-13-2023 End: 02-13-2023 Subsequent hospital visit by physician Dre Farmer [address] [place] [address] Comment on above: Chronic hepatitis C without hepatic coma (CMS/HCC) Start: 02-13-2023 End: 02-13-2023 ambulatory [facility] Start: 02-12-2023 End: 02-12-2023 Emergency department patient visit Pedro Pablo Fletcher [facility] Start: 02-08-2023 End: 02-08-2023 Emergency department patient visit Services [facility] Work Phone: [facility] Work Phone: Start: 02-07-2023 End: 02-07-2023 Emergency department patient visit Elisa Ellsworth Alfredohudson [facility] Start: 02-04-2023 End: 02-04-2023 Emergency department patient visit Services Evomail Work Phone: [facility] Work Phone: Start: 02-02-2023 End: 02-02-2023 Emergency department patient visit Services [facility] Work Phone: [facility] Work Phone: Start: 01-29-2023 End: 01-29-2023 Emergency department patient visit Jorge Mcintosh [facility] Start: 01-28-2023 End: 01-28-2023 ambulatory Joe Meza Other [employer] Other Start: 01-28-2023 Telephone encounter Joe Meza [facility] [employer] Start: 01-27-2023 End: 01-27-2023 Emergency department patient visit Services [facility] Work Phone: [facility] Work Phone: Start: 01-23-2023 End: 01-23-2023 Emergency department patient visit Services [facility] Work Phone: [facility] Work Phone: Start: 01-22-2023 End: 01-22-2023 Emergency department patient visit Balbina Bryant [facility] Start: 01-22-2023 End: 01-22-2023 Office outpatient new 30 minutes Jori Harman MD PhD Work Phone: [facility] Comment on above: Chronic low back amrily n, unspecified back pain laterality, unspecified whether sciatica present (Primary Dx) Start: 01-15-2023 End: 01-15-2023 Office outpatient new 45 minutes Antonio Husain PA-C Work Phone: [facility] Comment on above: Encounter for screen ing mammogram for breast cancer (Primary Dx); Recurrent major depressive disorder, in full remission (CMS/HCC); Herniation of intervertebral disc between L4 and L5; Lumbar radiculopathy; Chronic hepatitis C without hepatic coma (CMS/HCC); Chronic, continuous use of opioids; Controlled substance agreement signed Start: 01-14-2023 End: 01-14-2023 Emergency department patient visit Jorge Mcintosh [facility] Start: 01-12-2023 End: 01-12-2023 [facility] Start: 01-12-2023 End: 01-12-2023 Emergency department patient visit Services Family [facility] Work Phone: [facility] Work Phone: Start: 01-11-2023 End: 01-11-2023 Emergency department patient visit Services [facility] Work Phone: [facility] Work Phone: Start: 01-10-2023 End: 01-10-2023 ambulatory Joe Meza Other [employer] Other Start: 01-10-2023 Office outpatient vi sit 15 minutes Joe Meza [facility] Start: 01-10-2023 End: 01-10-2023 Emergency department patient visit Nikhil Tubbs [facility] Start: 01-07-2023 End: 01-07-2023 Emergency department patient visit Services [facility] Work Phone: [facility] Work Phone: Start: 01-04-2023 End: 01-05-2023 Emergency department patient [facility] Start: 01-04-2023 End: 01-04-2023 Emergency department patient visit Services [facility] Work Phone: [facility] Work Phone: Start: 01-02-2023 End: 01-02-2023 Emergency department patient visit Nikhil Tubbs [facility] Start: 12-28-2022 End: 12-28-2022 Emergency department patient visit Services [facility] Work Phone: [facility] Work Phone: Start: 12-28-2022 End: 12-28-2022 Patient encounter procedure Services [facility] Work Phone: [facility]-XRay [facility] [place] Work Phone: Start: 12-27-2022 End: 12-27-2022 ambulatory Rose Marie Shepherd Other [facility] [employer] Other Start: 12-27-2022 Office outpatient vi sit 15 minutes Rose Marie Shepherd [facility] Start: 12-26-2022 End: 12-26-2022 Emergency [facility] Start: 12-26-2022 End: 12-26-2022 ambulatory Glen Garza Other [facility] [employer] Other Start: 12-26-2022 Office outpatient vi sit 15 minutes Glen Garza [facility] Start: 12-24-2022 End: 12-24-2022 Emergency department patient visit Services [facility] Work Phone: [facility] Work Phone: Start: 12-23-2022 End: 12-23-2022 Emergency department patient visit Nikhil Tubbs [facility] Start: 12-21-2022 End: 12-21-2022 Emergency department patient visit Services [facility] Work Phone: [facility] Work Phone: Start: 12-18-2022 End: 12-18-2022 Emergency department patient visit Jorge Mcintosh [facility] Start: 12-14-2022 End: 12-14-2022 Emergency department patient visit Services [facility] Work Phone: [facility] Work Phone: Start: 12-13-2022 End: 12-13-2022 Emergency department patient visit Nikhil Tubbs [facility] Start: 12-12-2022 End: 12-13-2022 Emergency department patient visit Elisa Sánchez [facility] Start: 12-12-2022 (PROC) PROCEDURE Glen Garza [facility] Medical OutPt Start: 12-12-2022 End: 12-12-2022 Admission to same day surgery center Services [facility] Work Phone: [facility] Work Phone: Start: 12-12-2022 End: 12-12-2022 ambulatory Services [facility] Work Phone: [facility] Work Phone: Start: 12-11-2022 End: 12-11-2022 Emergency department patient visit Services [facility] Work Phone: [facility] Work Phone: Start: 12-10-2022 End: 12-10-2022 Emergency department patient visit Services [facility] Work Phone: [facility] Work Phone: Start: 12-09-2022 End: 12-09-2022 Emergency department patient visit Services [facility] Work Phone: [facility] Work Phone: Start: 12-07-2022 End: 12-07-2022 Emergency department patient visit Chandana Varela [facility] Start: 12-07-2022 End: 12-07-2022 Emergency department patient visit Services [facility] Work Phone: [facility] Work Phone: Start: 12-04-2022 End: 12-04-2022 Emergency department patient visit Allyson Nicole DO Work Phone: [facility] Emergency [facility] Tra[facility] Start: 11-29-2022 End: 11-29-2022 Emergency department patient visit Services [facility] Work Phone: [facility] Work Phone: Start: 11-28-2022 (PROC) PROCEDURE Glen Vela [facility] Medical OutPt Start: 11-28-2022 End: 11-28-2022 Admission to same day surgery center Services [facility] Work Phone: [facility] Work Phone: Start: 11-28-2022 End: 11-28-2022 ambulatory Services [facility] Work Phone: [facility] Work Phone: Start: 11-19-2022 End: 11-19-2022 ambulatory Glen Garza Other [facility] [employer] Other Start: 11-19-2022 Office outpatient vi sit 25 minutes Glen Garza [facility] Start: 11-18-2022 End: 11-18-2022 Emergency department patient visit Services [facility] Work Phone: [facility] Work Phone: Start: 11-16-2022 End: 11-17-2022 Emergency department patient visit Services [facility] Work Phone: [facility] Work Phone: Start: 11-15-2022 End: 11-15-2022 Emergency department patient visit Services [facility] Work Phone: [facility] Work Phone: Start: 11-12-2022 End: 11-12-2022 Emergency department patient visit Services [facility] Work Phone: [facility] Work Phone: Start: 11-11-2022 End: 11-11-2022 Emergency department patient visit Services [facility] Work Phone: [facility] Work Phone: Start: 11-08-2022 End: 11-08-2022 Emergency department patient visit Services [facility] Work Phone: [facility]-Emergency Room Work Phone: Start: 11-06-2022 Office outpatient vi sit 15 minutes Rose Marie CHAU [facility] Start: 11-06-2022 End: 11-06-2022 ambulatory Services [facility] Work Phone: [facility]tr Work Phone: Start: 11-06-2022 End: 11-06-2022 Patient encounter procedure Services [facility] Work Phone: [facility]XRay [facility] [place] Work Phone: Start: 11-05-2022 End: 11-05-2022 Emergency department patient visit MD RASHAD MCKEON Facility:[id number] Start: 11-01-2022 End: 11-01-2022 Emergency department patient visit Services [facility] Work Phone: [facility] Work Phone: Start: 10-31-2022 End: 10-31-2022 ambulatory Services [facility] Work Phone: [facility] Work Phone: Start: 10-31-2022 End: 10-31-2022 Patient encounter procedure Services [facility] Work Phone: [facility]-MRI [facility] [place] Work Phone: Start: 10-25-2022 End: 10-26-2022 Emergency department patient visit Services [facility] Work Phone: [facility] Work Phone: Start: 10-23-2022 End: 10-23-2022 Emergency department patient visit Services [facility] Work Phone: [facility]-Emergency Room Work Phone: Start: 10-16-2022 End: 10-16-2022 Emergency department patient visit Services [facility] Work Phone: [facility]tr-Emergency Room Work Phone: Start: 10-11-2022 End: 10-11-2022 Emergency department patient visit Services [facility] Work Phone: [facility] Work Phone: Start: 10-07-2022 End: 10-07-2022 Emergency department patient visit Services [facility] Work Phone: [facility] Work Phone: Start: 10-04-2022 End: 10-04-2022 Emergency department patient visit Services [facility] Work Phone: [facility] Work Phone: Start: 10-02-2022 End: 10-02-2022 Emergency department patient visit Services [facility] Work Phone: [facility] Work Phone: Start: 09-28-2022 End: 09-28-2022 Emergency department patient visit Services [facility] Work Phone: [facility] Work Phone: Start: 09-26-2022 End: 09-26-2022 ambulatory Glen Garza Other [employer] Other Start: 09-26-2022 Office outpatient vi sit 15 minutes Glen Garza [facility] Start: 09-24-2022 End: 09-24-2022 Emergency department patient visit Services [facility] Work Phone: [facility] Work Phone: Start: 09-22-2022 End: 09-22-2022 Emergency department patient visit Services [facility] Work Phone: [facility] Work Phone: Start: 09-19-2022 (PROC) PROCEDURE Glen Garza [facility] Medical OutPt Start: 09-19-2022 End: 09-19-2022 Admission to same day surgery center Services [facility] Work Phone: [facility] Work Phone: Start: 09-19-2022 End: 09-19-2022 ambulatory Services [facility] Work Phone: [employer] Other Start: 09-18-2022 End: 09-18-2022 Emergency department patient visit Services [facility] Work Phone: [facility] Work Phone: Start: 09-11-2022 End: 09-11-2022 ambulatory Rose Marie Shepherd Other [facility] [employer] Other Start: 09-11-2022 Telephone encounter Rose Marie Joao [facility] Start: 09-11-2022 End: 09-11-2022 Emergency department patient visit Services [facility] Work Phone: [facility]Emergency [facility] Work Phone: Start: 09-10-2022 End: 09-10-2022 Patient encounter procedure Services [facility] Work Phone: [facility] for [facility] Work Phone: Start: 09-06-2022 End: 09-06-2022 Discharged Recurring Services [facility] Work Phone: [facility]-Physical Therapy [place] Start: 09-05-2022 End: 09-05-2022 Emergency department patient visit Services [facility] Work Phone: [facility]Emergency [facility] Work Phone: Start: 09-04-2022 End: 09-04-2022 Emergency department patient visit Pedro Pablo Fletcher [facility] Start: 09-04-2022 End: 09-04-2022 ambulatory Glen Garza Other [facility] [employer] Other Start: 09-04-2022 Office consultation new/estab patient 60 min Glen Garza [facility] Start: 09-04-2022 Telephone encounter Glen Garza [facility] [employer] Start: 09-01-2022 End: 09-01-2022 Emergency department patient visit Services [facility] Work Phone: [facility] Work Phone: Start: 08-31-2022 End: 08-31-2022 Emergency department patient visit Services [facility] Work Phone: [facility] Work Phone: Start: 08-27-2022 End: 08-27-2022 ambulatory Rose Marie Shepherd Other [facility] [employer] Other Start: 08-27-2022 Telephone encounter Rose Marie Shepherd [facility] Start: 08-26-2022 End: 08-26-2022 Emergency department patient visit Services [facility] Work Phone: [facility] Work Phone: Start: 08-21-2022 End: 08-21-2022 ambulatory Rose Marie Shepherd Other [facility] [employer] Other Start: 08-21-2022 Office outpatient ne w 45 minutes Rose Marie Shepherd [facility] Start: 08-16-2022 End: 08-17-2022 Emergency department patient visit Services [facility] Work Phone: [facility] Work Phone: Start: 08-13-2022 End: 08-13-2022 Emergency department patient visit Services [facility] Work Phone: [facility] Work Phone: Start: 08-09-2022 End: 08-09-2022 Patient encounter procedure Services [facility] Work Phone: [facility]XRay [facility] [place] Work Phone: Start: 08-06-2022 End: 08-06-2022 Emergency department patient visit Services [facility] Work Phone: [facility] Work Phone: Start: 08-02-2022 End: 08-02-2022 Emergency department patient visit Services [facility] Work Phone: [facility] Work Phone: Start: 06-16-2022 End: 06-16-2022 Emergency department patient visit Services [facility] Work Phone: [facility] Work Phone: Start: 03-30-2022 End: 03-30-2022 Admission to same day surgery center Services [facility] Work Phone: [facility] Work Phone: Start: 03-22-2022 End: 03-22-2022 ambulatory Keke Skaggs Other [employer] Other Start: 03-22-2022 Telephone encounter Ke[facility] Start: 03-19-2022 End: 03-19-2022 Emergency department patient visit Services [facility] Work Phone: [facility] Work Phone: Start: 03-17-2022 End: 03-17-2022 Emergency department patient visit Services [facility] Work Phone: [facility] Work Phone: Start: 03-14-2022 End: 03-14-2022 Emergency department patient visit Services [facility] Work Phone: [facility]tr-Emergency Room Start: 02-03-2022 End: 02-03-2022 Emergency department patient visit Services [facility] Work Phone: [facility]Emer[facility] Room Start: 01-21-2022 End: 01-21-2022 Emergency department patient visit Services [facility] Work Phone: [facility]Emergency Room Start: 01-10-2022 End: 01-10-2022 Patient encounter procedure Celestina VILLASEÑORAM [facility] Start: 12-20-2021 End: 12-20-2021 ambulatory Services [facility] Work Phone: [facility] Work Phone: Start: 12-20-2021 End: 12-20-2021 Patient encounter procedure [facility] Work Phone: [facility] [place] Start: 11-13-2021 End: 11-14-2021 Emergency department patient visit [facility] Work Phone: [facility] Start: 10-30-2021 End: 10-30-2021 Patient encounter procedure [facility] Work Phone: [facility] [place] Start: 10-18-2021 End: 10-18-2021 Emergency department patient visit [facility] Work Phone: [facility] Start: 10-15-2021 End: 10-15-[address] DOCTOR FREEDMANC Facility:H1 Start: 10-09-2021 End: 10-10-2021 Emergency department patient visit [facility] Work Phone: [facility] Start: 09-19-2021 End: 09-19-2021 Patient encounter procedure [facility] Work Phone: [facility] [place] Start: 09-13-2021 End: 09-14-2021 ambulatory ALMAS MITCHEL Facility:[facility]1 Start: 09-13-2021 End: 09-13-2021 Emergency department patient visit [facility] Work Phone: [facility] Start: 06-21-2021 End: 06-21-2021 Lab Drop off Dagoberto Romero [facility] Start: 04-18-2021 (Procedure) Rikki Goodman [facility] Start: 04-18-2021 End: 04-18-2021 ambulatory Avery Goodman Other [facility] Other Start: 03-30-2021 End: 03-30-2021 ambulatory Avery Goodman Other [facility] Other Start: 03-30-2021 Office consultation new/estab patient 60 min Avery Goodman [facility] Start: 02-15-2021 End: 02-15-2021 ambulatory Jd Kira Other [facility] Other Start: 02-15-2021 Office outpatient vi sit 15 minutes Jd Malone [facility] Procedures Date Procedure Procedure Detail Performing Clinician Start: 02-06-2024 PULSE OXIMETRY, CONTINUOUS Gavin hagen MD Work Phone: Start: 02-06-2024 Fluoroscopy up to 1 hour physician/qhp time Judah Woodard MD Work Phone: Start: 02-06-2024 VERAB/VERIFY ABORH Brock Agudelo MD Work Phone: Start: 02-06-2024 Blood typing serologic rh (d) Brock chen MD Work Phone: Start: 01-26-2024 Blood count complete auto&auto difrntl wbc Rayshawn Fischer PA-C Work Phone: Start: 01-26-2024 Comprehensive metabolic panel Rayshawn chen PA-C Work Phone: Start: 01-10-2024 Mri spinal canal lumbar w/o contrast material Germaine Blair PA-C Work Phone: Start: 01-08-2024 Basic metabolic panel calcium total Jose J Gallo HIM SPECIALIST-LEAD PROGRAMMER Work Phone: Start: 01-08-2024 EXTRA TUBES Shelton Goudiaby DO Work Phone: Start: 01-08-2024 LAVENDER TOP Shelton Goudiaby DO Work Phone: Start: 01-07-2024 Basic metabolic panel calcium total Jose J Gallo HIM SPECIALIST-LEAD PROGRAMMER Work Phone: Start: 01-06-2024 Comprehensive metabolic panel Ace lewis MD Work Phone: Start: 01-04-2024 Basic metabolic panel calcium total Shelton Beck DO Work Phone: Start: 01-03-2024 Basic metabolic panel calcium total Jazmyn Ohara HIM SPECIALIST-LEAD PROGRAMMER Work Phone: Start: 01-02-2024 Radex spine lumbosacral only bending 2/3 views Rashad Christiansen MD Work Phone: Start: 01-02-2024 Basic metabolic panel calcium total Simon Dominguez MD Work Phone: Start: 01-01-2024 Mri spinal canal lumbar w/o & w/contr matrl Michele Lion HIM SPECIALIST-LEAD PROGRAMMER Work Phone: Start: 01-01-2024 C-reactive protein Michele Lion HIM SPECIALIST-LEAD PROGRAMMER Work Phone: Start: 01-01-2024 Comprehensive metabolic panel Michele Lion HIM SPECIALIST-LEAD PROGRAMMER Work Phone: Start: 12-04-2023 Ct lumbar spine w/contrast material Nighat Bailey PA-C Work Phone: Start: 12-02-2023 Duplex scan of lower limb veins [facility] Work Phone: Start: 12-01-2023 Computed tomography of abdomen and pelvis with contrast [facility] Work Phone: Start: 11-26-2023 Microscopic urinalysis No PCP Start: 11-10-2023 Blood culture for bacteria, including anaerobic screen [facility] Work Phone: Start: 10-30-2023 Mri spinal canal lumbar w/o & w/contr matrl Gabbi Miranda PA-C Work Phone: Start: 10-30-2023 Radiologic exam abdomen 1 view Gabbi Miranda PA-C Work Phone: Start: 10-30-2023 Basic metabolic panel calcium total Gabbi Miranda PA-C Work Phone: Start: 10-30-2023 C-reactive protein Gabbi Miranda PA-C Work Phone: Start: 10-19-2023 Blood culture for bacteria, including anaerobic screen Services [facility] Phone: Start: 10-19-2023 SARS-CoV-2, Influenza & RSV (PCR) Services [facility] Work Phone: Start: 10-19-2023 Plain chest X-ray Services [facility] Work Phone: Start: 10-05-2023 Computed tomography of abdomen and pelvis with contrast Services [facility] Work Phone: Start: 10-05-2023 Plain chest X-ray Services [facility] Work Phone: Start: 10-05-2023 Bacteria identified in Urine by Culture Services [facility] Work Phone: Start: 10-05-2023 Blood culture for bacteria, including anaerobic screen Services [facility] Work Phone: Start: 10-05-2023 Urine culture Services [facility] Work Phone: Start: 08-21-2023 XR tomography Unspecified body region Tiff Story MD Work Phone: Start: 08-21-2023 PULSE OXIMETRY, CONTINUOUS Joe miller MD Work Phone: Start: 08-21-2023 VERAB/VERIFY ABORH Elke Adams MD Work Phone: Start: 08-21-2023 PULSE OXIMETRY, SPOT Chirag fam HIM SPECIALIST-LEAD PROGRAMMER Work Phone: Start: 08-02-2023 EXTRA URINE CASTRO TUBE CHIDI JOSEPH Start: 08-02-2023 URINALYSIS WITH REFLEX CULTURE AND MICROSCOPIC CHIDI JOSEPH Start: 08-02-2023 Basic metabolic 2000 panel - Serum or Plasma CHIID JOSEPH Start: 08-02-2023 CBC panel - Blood by Automated count CHIDI JOSEPH Start: 08-02-2023 COAGULATION SCREEN CHIDI JOSEPH Start: 08-02-2023 STAPHYLOCOCCUS AUREUS/MRSA COLONIZATION, CULTURE CHIDI JOSEPH Start: 08-02-2023 TYPE AND SCREEN CHIDI JOSEPH Start: 08-02-2023 REQUEST FOR PRE-ADMISSION TESTING VISIT CHIDI JOSEPH Start: 06-17-2023 Hepatic function 2000 panel - Serum or Plasma CHIDI JOSEPH Start: 06-01-2023 Computed tomography of abdomen and pelvis with contrast ELIZABETH Ferrell Work Phone: Start: 06-01-2023 Plain chest X-ray HIM SPECIALISTRadha Carranzamond Work Phone: Start: 05-20-2023 HAND/UPPER EXTREMITY INJECTION/ARTHROCENTESIS BELKIS HERNANDEZ Start: 05-20-2023 XR WRIST RIGHT 3+ VIEWS BELKIS HERNANDEZ Start: 05-20-2023 Arthrocentesis aspir&/inj small jt/bursa w/o us Belkis Hernandez DO Work Phone: Start: 04-19-2023 LIVER ELASTOGRAPHY CHIDI JOSEPH Start: 04-12-2023 Plain X-ray of left shoulder Start: 04-01-2023 [id number] CHIDI JOSEPH Start: 04-01-2023 ALPHA-FETOPROTEIN CHIDI JOSEPH Start: 04-01-2023 BEATRIZ-WITH REFLEX TO JESUS CHIDIKARINA JOSEPH Start: 04-01-2023 ANTI-MITOCHONDRIAL ANTIBODY CHIDI Nguyen Start: 04-01-2023 ANTI-SMOOTH MUSCLE ANTIBODY CHIDI MORRIS Start: 04-01-2023 Bilirubin.indirect [Mass/volume] in Serum or Plasma CHIDI JOSEPH Start: 04-01-2023 CBC W Auto Differential panel - Blood CHIDI JOSEPH Start: 04-01-2023 CERULOPLASMIN CHIDI JOSEPH Start: 04-01-2023 Comprehensive metabolic 2000 panel - Serum or Plasma CHIDI JOSEPH Start: 04-01-2023 Ferritin [Mass/volume] in Serum or Plasma CHIDI JOSEPH Start: 04-01-2023 HCV PCR WITH GENOTYPE REFLEX CHIDI HUDSON AM Start: 04-01-2023 HEPATITIS A ANTIBODY, TOTAL CHIDI Nguyen Start: 04-01-2023 HEPATITIS B CORE ANTIBODY, TOTAL CHIDI JOSEPH Start: 04-01-2023 HEPATITIS B SURFACE ANTIBODY CHIDI HUDSON AM Start: 04-01-2023 HEPATITIS B SURFACE ANTIGEN CHIDI Nguyen Start: 04-01-2023 HEPATITIS C GENOTYPE CHIDI JOSEPH Start: 04-01-2023 HIV 1/2 ANTIGEN/ANTIBODY SCREEN WIH REFLEX TO CONFIRMATION CHIDI JOSEPH Start: 04-01-2023 IRON AND TIBC CHIDI JOSEPH Start: 04-01-2023 PHOSPHATIDYLETHANOL (PETH), WHOLE BLOOD, QUANTITATIVE CHIDI JOSEPH Start: 04-01-2023 PROTIME-INR CHIDI JOSEPH Start: 02-13-2023 US ABDOMEN LIMITED LIVER HARMOHINDER ALVAREZI YIFAN Start: 02-13-2023 Us abdominal real time w/image limited Antonio Husain PA-C Work Phone: Start: 12-28-2022 X-ray of lumbar spine, six views including bending views Services [employer] Phone: Start: 12-12-2022 Injection of spinal epidural space [facility] [employer] Phone: Start: 12-09-2022 X-ray of lumbar spine, four or more views Services [employer] Phone: Start: 11-28-2022 Injection of spinal epidural space Services [employer] Phone: Start: 11-17-2022 X-ray of lumbar spine, two or three views [facility] [employer] Phone: Start: 11-06-2022 Plain X-ray of left hip [facility] [employer] Phone: Start: 10-31-2022 MR lumbar spine wo con Services [facility] Work Phone: Start: 10-16-2022 CT of lumbar spine without contrast Services [employer] Phone: Start: 09-19-2022 Injection of local anesthetic into sacroiliac joint [facility] [employer] Phone: Start: 09-11-2022 X-ray of lumbar spine, four or more views [facility] [employer] Phone: Start: 09-10-2022 Dual energy X-ray absorptiometry Services [employer] Phone: Start: 08-09-2022 X-ray of lumbar spine, six views including bending views [facility] [employer] Phone: Start: 03-30-2022 End: 03-30-2022 Colonoscopy Services [facility] Work Phone: Start: 03-19-2022 CT of abdomen and pelvis without contrast [facility] [employer] Phone: Start: 03-19-2022 SARS-CoV-2, Influenza & RSV (PCR) Services [employer] Phone: Start: 03-14-2022 Computed tomography of abdomen and pelvis with contrast [facility] [employer] Phone: Start: 03-14-2022 Screening for occult blood in feces [facility] [employer] Phone: Start: 02-03-2022 CT of abdomen and pelvis without contrast Services [employer] Phone: Start: 02-03-2022 Urine culture Services [facility] [employer] Phone: Start: 12-20-2021 Plain X-ray of left shoulder Services [facility] Work Phone: Start: 11-13-2021 Computed tomography of abdomen and pelvis with contrast Services [employer] Phone: Start: 10-18-2021 Plain chest X-ray Services [facility] Work Phone: Start: 10-09-2021 Computed tomography of abdomen and pelvis with contrast Services [employer] Phone: Start: 03-25-2010 Hysterectomy Cheyanne Rosas History of cholecystectomy Pepe Skaggs Other History of cholecystectomy E marcos Rosas Hysterectomy Dagoberto Romero Hysterectomy Cheyanne Rosas lap x 7 Dagoberto Romero Tonillectomy with adenoids N jewell Romero Urine culture Services [facility] Work Phone: Plan of Treatment Date Care Activity Detail Author Start: 2037 RSV patients and/or patients aged 60+ years (1 - 1-dose 60+ series) RSV patients and/or patients aged 60+ years (1 - 1-dose 60+ series) [facility] Start: 03-30-2032 Screening for malignant neoplasm of colon [facility] Start: 2027 Zoster Vaccines (1 of 2) Zoster Vaccines (1 of 2) [facility] Start: 12-23-2024 End: 12-23-2024 US Liver limited US abdomen limited liver Imaging Routine 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 Hepatic fibrosis, advanced fibrosis Expected: 12/23/2024 (Approximate), Expires: 12/23/2024 [facility] Work Phone: Comment on above: Expected: 12/23/2024 (Approximate), Expi res: 12/23/2024 Start: 06-29-2024 End: 06-29-2024 Patient encounter procedure 06/29/2024 8:00 AM EDT Office [facility] [address] [place] [address] [place] [address] [facility] [place] [address] [facility] Start: 06-23-2024 End: 12-23-2024 US Liver limited US abdomen limited liver Imaging Routine 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 Hepatic fibrosis, advanced fibrosis Expected: 06/23/2024 (Approximate), Expires: 12/23/2024 [facility] Service Area Work Phone: Comment on above: Expected: 06/23/2024 (Approximate), Expi res: 12/23/2024 Start: 03-10-2024 End: 03-10-2024 Patient encounter procedure 03/10/2024 2:15 PM EST Office Visit William Carvalho [address] [place] [phone] [place] [address] [facility] Department [place] [address] [facility] Start: 02-25-2024 End: 02-25-2024 Patient encounter procedure 02/25/2024 11:00 AM EST Office Visit [facility] [address] [place] [phone] Marlee Fitzpatrick MD [address] [place] [address] [facility] Start: 02-06-2024 End: 02-06-2024 Anesthesia consultation 02/06/2024 1:50 PM EST Anesthesia Event [facility] [place] [address] [place] [address] Sherron Cohen, DARSHAN [facility] Start: 02-06-2024 End: 02-06-2024 Admission to same day surgery center [facility] Comment on above: DISCECTOMY POSTERIOR LUMBAR LEFT L4-5 MN NIMALLY INVASIVE [41365 (CPT )] Start: 02-06-2024 End: 02-06-2024 Lamnotmy incl w/dcmprsn nrv root 1 intrspc lumbr [facility] Start: 02-06-2024 Subsequent hospital visit by physician [facility] Start: 02-04-2024 End: 02-04-2024 Patient encounter procedure 02/04/2024 3:30 PM EST Office Visit [address] [place] [phone] Dino Megloza MD [address] [place] [address], [address], [address] [place] [address] [facility] Start: 01-30-2024 End: 01-30-2024 Patient encounter procedure 01/30/2024 9:00 AM EST Office Visit [facility] [address] [facility] [address] [place] [address] Iveth Burger, HIM SPECIALIST-LEAD PROGRAMMER [address] [facility] [place] [address] [facility] Start: 01-29-2024 End: 01-29-2024 Patient encounter procedure 01/29/2024 12:20 PM EST Office Visit [facility] [address] [phone] Marlee Fitzpatrick MD [address] [address] [facility] Start: 01-29-2024 End: 01-29-2024 Admission to establishment 01/29/2024 11:00 AM EST Pre-Admission Testing [facility] [address] [place] [phone] [facility] Start: 01-23-2024 End: 01-23-2024 Admission to establishment 01/23/2024 9:30 AM EDT Pre-Admission Testing [facility] [address] [place] [phone] [facility] Start: 01-21-2024 End: 01-20-2025 Request for Pre-Admission Testing Visit Request for Pre-Admission Testing Visit Procedures Routine Lumbar disc herniation with radiculopathy Expected: 01/21/2024 (Approximate), Expires: 01/20/2025 [facility] Service Area Work Phone: Comment on above: Expected: 01/21/2024 (Approximate), Expi res: 01/20/2025 Start: 01-17-2024 End: 01-17-2024 Patient encounter procedure 01/17/2024 9:20 AM EDT Office Visit [facility] [address] [place] [phone] Marlee Fitzpatrick MD [address] [place] [address] [facility] Start: 01-14-2024 End: 01-14-2024 Patient encounter procedure 01/14/2024 1:00 PM EDT Office Visit [facility] [address] [place] [phone] [place] [address] Department [place] [address] [facility] Start: 01-06-2024 End: 01-06-2024 Patient encounter procedure 01/06/2024 8:00 AM EDT [facility] [address] [facility] [address] [place] [phone] [place] [address] [place] [address] [facility] Start: 12-27-2023 End: 12-27-2023 Patient encounter procedure 12/27/2023 2:00 PM EDT Office Visit [facility] [address] [place] [phone] [place] [address] Department [place] [address] [facility] Start: 12-02-2023 Duplex scan of lower limb veins US venous duplex LE RT [facility] Start: 12-02-2023 US Lower extremity vein - right [facility] Start: 12-01-2023 Computed tomography of abdomen and pelvis with contrast CT abdomen pelvis w con [facility] Start: 12-01-2023 CT Abdomen and Pelvis W contrast IV [facility] Start: 11-26-2023 Computerized axial tomography of lumbar spine with contrast [facility] Start: 11-24-2023 COVID-19 Vaccine ( season) COVID-19 Vaccine () [facility] Start: 11-24-2023 COVID-19 Vaccine () COVID-19 Vaccine () [facility] Start: 11-24-2023 COVID-19 Vaccines () COVID-19 Vaccines () [facility] Start: 11-24-2023 Influenza vaccination [facility] Start: 11-10-2023 Bacteria identified in Blood by Culture [facility] Start: 10-24-2023 Influenza vaccination [facility] Start: 10-24-2023 Refusal of treatment by patient [facility] Start: 10-19-2023 Bacteria identified in Blood by Culture [facility] Start: 10-05-2023 Bacteria identified in Blood by Culture [facility] Start: 10-05-2023 Bacteria identified in Urine by Culture [facility] Start: 08-27-2023 End: 08-27-2023 Patient encounter procedure 08/27/2023 1:00 PM EDT Office Visit [facility] [address] [facility] [address] [place] [phone] Chirag Reynoso, HIM SPECIALIST-LEAD PROGRAMMER [address] Department [place] [address] [facility] Start: 07-08-2023 End: 07-08-2023 Telemedicine consultation with patient 07/08/2023 10:00 AM EDT [facility]icine [facility] [address] [place] [address] [place] [address] Department of Psychiat[place] [address] [facility]rien[facility] Start: 06-05-2023 End: 06-05-2023 Patient encounter procedure 06/05/2023 8:00 AM EDT Office Visit [facility] [address] [facility] [address] [place] [phone] [place] [address] Department [place] [address] [facility] Start: 06-03-2023 End: 06-03-2023 Patient encounter procedure 06/03/2023 8:45 AM EDT Office Visit [address] [address] Belkis Hernandez, DO [address] [facility], [address] [place] [phone] [facility] Start: 05-24-2023 Hepatitis B vaccine (2 of 2 - CpG 2-dose series) Hepatitis B vaccine (2 of 2 - CpG 2-dose series) [facility] Start: 05-24-2023 Hepatitis B Vaccines (2 of 2 - CpG 2-dose series) Hepatitis B Vaccines (2 of 2 - CpG 2-dose series) [facility] Start: 05-20-2023 End: 05-20-2024 XR Wrist - right 3 Views [facility] Service Ar [facility] Work Phone: Comment on above: Expected: 05/20/2023, Expires: Start: 05-08-2023 End: 05-08-2023 Patient encounter procedure 05/08/2023 8:45 AM EST Office Visit [facility] [address] [facility] [address] [place] [phone] [place] [address] Department [place] [address] [facility] Start: 04-30-2023 End: 04-30-2023 Patient encounter procedure 04/30/2023 11:00 AM EST Office Visit [facility] [address] [place] [phone] [place] [address] Department of [place] [address] [facility] Start: 04-17-2023 End: 04-17-2023 Patient encounter procedure 04/17/2023 1:10 PM EST Office Visit [facility] [address] [place] [phone] Antonio Husain PA-C [address] [facility] [place] [address] [facility] Start: 04-01-2023 End: 04-01-2024 Alpha 1 antitrypsin [Mass/volume] in Serum or Plasma by Nephelometry [facility] Work Phone: Comment on above: Expected: 04/01/2023 (Approximate), Expi res: 04/01/2024 Start: 04-01-2023 End: 04-01-2024 Wegvi-2-Wultrlxjtkw [Mass/volume] in Serum or Plasma [facility] Work Phone: Comment on above: Expected: 04/01/2023 (Approximate), Expi res: 04/01/2024 Start: 04-01-2023 End: 04-01-2024 Bilirubin.direct [Mass/volume] in Serum or Plasma [facility] Work Phone: Comment on above: Expected: 04/01/2023 (Approximate), Expi res: 04/01/2024 Start: 04-01-2023 End: 04-01-2024 CBC W Auto Differential panel - Blood [facility] Work Phone: Comment on above: Expected: 04/01/2023 (Approximate), Expi res: 04/01/2024 Start: 04-01-2023 End: 04-01-2024 Ceruloplasmin [Mass/volume] in Serum or Plasma [facility] Work Phone: Comment on above: Expected: 04/01/2023 (Approximate), Expi res: 04/01/2024 Start: 04-01-2023 End: 04-01-2024 Comprehensive metabolic 2000 panel - Serum or Plasma [facility] Work Phone: Comment on above: Expected: 04/01/2023 (Approximate), Expi res: 04/01/2024 Start: 04-01-2023 End: 04-01-2024 Ferritin [Mass/volume] in Serum or Plasma [facility] Work Phone: Comment on above: Expected: 04/01/2023 (Approximate), Expi res: 04/01/2024 Start: 04-01-2023 End: 04-01-2024 Hepatitis A virus Ab [Presence] in Serum by Immunoassay [facility] Work Phone: Comment on above: Expected: 04/01/2023 (Approximate), Expi res: 04/01/2024 Start: 04-01-2023 End: 04-01-2024 Hepatitis B virus core Ab [Presence] in Serum [facility] Work Phone: Comment on above: Expected: 04/01/2023 (Approximate), Expi res: 04/01/2024 Start: 04-01-2023 End: 04-01-2024 Hepatitis B virus surface Ab [Units/volume] in Serum [facility] Work Phone: Comment on above: Expected: 04/01/2023 (Approximate), Expi res: 04/01/2024 Start: 04-01-2023 End: 04-01-2024 Hepatitis B virus surface Ag [Presence] in Serum or Plasma by Immunoassay [facility] Work Phone: Comment on above: Expected: 04/01/2023 (Approximate), Expi res: 04/01/2024 Start: 04-01-2023 End: 04-01-2024 Hepatitis C virus RNA panel (viral load) in Serum or Plasma by LINDSEY with probe detection [facility] Work Phone: Comment on above: Expected: 04/01/2023 (Approximate), Expi res: 04/01/2024 Start: 04-01-2023 End: 04-01-2024 HIV 1+2 Ab+HIV1 p24 Ag [Presence] in Serum or Plasma by Immunoassay [facility] Work Phone: Comment on above: Expected: 04/01/2023 (Approximate), Expi res: 04/01/2024 Start: 04-01-2023 End: 04-01-2024 Iron and Iron binding capacity panel - Serum or Plasma [facility] Work Phone: Comment on above: Expected: 04/01/2023 (Approximate), Expi res: 04/01/2024 Start: 04-01-2023 End: 04-01-2024 Liver Elastography (Fibroscan) Liver Elastography (Fibroscan) GI Routine Chronic hepatitis C without hepatic coma (CMS/HCC) Expected: 04/01/2023 (Approximate), Expires: 04/01/2024 [facility] Service Area Work Phone: Comment on above: Expected: 04/01/2023 (Approximate), Expi res: 04/01/2024 Start: 04-01-2023 End: 04-01-2024 Mitochondria Ab [Presence] in Serum by Immunofluorescence [facility] Work Phone: Comment on above: Expected: 04/01/2023 (Approximate), Expi res: 04/01/2024 Start: 04-01-2023 End: 04-01-2024 Nuclear Ab [Presence] in Serum by Hep2 substrate [facility] Work Phone: Comment on above: Expected: 04/01/2023 (Approximate), Expi res: 04/01/2024 Start: 04-01-2023 End: 04-01-2024 Phosphatidylethanol (PEth), Whole Blood, Quantitative [facility] Work Phone: Comment on above: Expected: 04/01/2023 (Approximate), Expi res: 04/01/2024 Start: 04-01-2023 End: 04-01-2024 Prothrombin time (PT) [facility] Work Phone: Comment on above: Expected: 04/01/2023 (Approximate), Expi res: 04/01/2024 Start: 04-01-2023 End: 04-01-2024 Smooth muscle Ab [Presence] in Serum by Immunofluorescence [facility] Work Phone: Comment on above: Expected: 04/01/2023 (Approximate), Expi res: 04/01/2024 Start: 01-22-2023 End: 01-23-2024 XR Lumbar spine Views W flexion and W extension XR lumbar spine 4+ views w flexion extension Imaging Routine Chronic low back pain, unspecified back pain laterality, unspecified whether sciatica present Expected: 01/22/2023, Expires: 01/23/2024 [facility] Service Area Work Phone: Comment on above: Expected: 01/22/2023, Expires: Start: 01-22-2023 End: 01-22-2023 Patient encounter procedure 01/22/2023 1:30 PM EDT Office Visit [facility] [address] [place] [address] Jori Harman [place] PhD [id number], [place] [id number] [facility] Start: 01-18-2023 End: 01-18-2023 Patient encounter procedure 01/18/2023 9:30 AM EDT Appointment [address] [phone] [facility] Start: 01-15-2023 End: 03-17-2024 DBT Breast - bilateral BI mammo bilateral screening tomosynthesis Imaging Routine Encounter for screening mammogram for breast cancer Expected: 01/15/2023, Expires: 03/17/2024 [facility] Service Area Work Phone: Comment on above: Expected: 01/15/2023, Expires: Start: 01-15-2023 End: 01-16-2024 Drugs of abuse screen W Reflex confirm panel - Urine [facility] Work Phone: Comment on above: Expected: 01/15/2023 (Approximate), Expi res: 01/16/2024 Start: 01-15-2023 End: 01-16-2024 Hepatitis C virus Ab [Presence] in Serum Hepatitis C Antibody Lab Routine Chronic hepatitis C without hepatic coma (CMS/HCC) Expected: 01/15/2023 (Approximate), Expires: 01/16/2024 [facility] Work Phone: Comment on above: Expected: 01/15/2023 (Approximate), Expi res: 01/16/2024 Start: 01-15-2023 End: 01-16-2024 Hepatitis C virus RNA panel (viral load) in Serum or Plasma by LINDSEY with probe detection Hepatitis C RNA, Quantitative, PCR Lab Routine Chronic hepatitis C without hepatic coma (CMS/HCC) Expected: 01/15/2023 (Approximate), Expires: 01/16/2024 [facility] Work Phone: Comment on above: Expected: 01/15/2023 (Approximate), Expi res: 01/16/2024 Start: 01-15-2023 End: 01-16-2024 US Liver limited US abdomen limited liver Imaging Routine Chronic hepatitis C without hepatic coma (CMS/HCC) Expected: 01/15/2023, Expires: 01/16/2024 [facility] Work Phone: Comment on above: Expected: 01/15/2023, Expires: Start: 12-12-2022 [facility] Start: 11-28-2022 [facility] Start: 11-23-2022 COVID-19 VACCINE ( season) COVID-19 VACCINE () [facility] Start: 11-23-2022 Influenza vaccination Influenza Vaccine (#1) [facility] Start: 11-17-2022 X-ray of lumbar spine, two or three views XR lumbar spine 2-3V* [facility] Start: 11-17-2022 XR Lumbar spine 2 or 3 Views [facility] Start: 10-23-2022 Refusal of treatment by patient INFLUENZA VACCINE [facility] Start: 03-30-2022 [facility] Start: 2022 DIABETES SCREENING DIABETES SCREENING [facility] Start: 2022 Screening for malignant neoplasm of colon [facility] Start: 11-13-2021 Computed tomography of abdomen and pelvis with contrast CT abdomen pelvis w con [facility] Start: 11-13-2021 End: 11-14-2021 Emergency department patient visit Departed Emergency [facility] Start: 10-30-2021 End: 10-30-2021 Patient encounter procedure Departed Clinical [facility] [place] Start: 08-28-2020 COVID-19 VACCINE (2 - Booster for Teddy series) COVID-19 VACCINE (2 - Booster for Teddy series) [facility] Start: 2017 Lipid panel Lipids [facility] Start: 2017 Screening for malignant neoplasm of breast [facility] Start: 2002 CERVICAL CANCER SCREENING CERVICAL CANCER SCREENING [facility] Start: 2002 COTEST / HPV COTEST / HPV [facility] Start: 2002 Screening for malignant neoplasm of cervix [facility] Start: 1999 DTaP/Tdap/Td Vaccines (1 - Tdap) DTaP/Tdap/Td Vaccines (1 - Tdap) [facility] Start: 1998 Microscopic observation [Identifier] in Cervix by Cyto stain PAP SMEAR [facility] Start: 1998 Screening for malignant neoplasm of cervix [facility] Start: 1996 DTaP/Tdap/Td vaccine (1 - Tdap) DTaP/Tdap/Td vaccine (1 - Tdap) [facility] Start: 1996 DTaP/Tdap/Td VACCINES (1 - Tdap) DTaP/Tdap/Td VACCINES (1 - Tdap) [facility] Start: 1996 Hepatitis A Vaccines (1 of 2 - Risk 2-dose series) Hepatitis A Vaccines (1 of 2 - Risk 2-dose series) [facility] Start: 1996 HEPATITIS B VACCINES (1 of 3 - 19+ 3-dose series) HEPATITIS B VACCINES (1 of 3 - 19+ 3-dose series) [facility] Start: 1995 BREAST CANCER SCREENING BREAST CANCER SCREENING [facility] Start: 1995 Diabetes mellitus screening Diabetes Screening [facility] Start: 1995 HEPATITIS C SCREENING HEPATITIS C SCREENING [facility] Start: 1995 Hepatitis C screening [facility] Start: 1995 Screening for malignant neoplasm of breast Breast Cancer Screening [facility] Start: 1992 HIV SCREENING HIV SCREENING [facility] Start: 1992 HIV screening [facility] Start: 1989 Depression Screen Depression Screen [facility] Start: 1983 Pneumococcal 0-64 years Vaccine (1 of 2 - PCV) Pneumococcal 0-64 years Vaccine (1 of 2 - PCV) [facility] Start: 1983 PNEUMOCOCCAL VACCINE: Pediatrics (0 to 5 Years) and At-Risk Patients (6 to 64 Years) (1 - PCV) PNEUMOCOCCAL VACCINE: Pediatrics (0 to 5 Years) and At-Risk Patients (6 to 64 Years) (1 - PCV) [facility] Start: 1983 PNEUMOCOCCAL VACCINE: Pediatrics (0 to 5 Years) and At-Risk Patients (6 to 64 Years) (1 of 2 - PCV) PNEUMOCOCCAL VACCINE: Pediatrics (0 to 5 Years) and At-Risk Patients (6 to 64 Years) (1 of 2 - PCV) [facility] Start: 1983 Pneumococcal Vaccines: Pediatrics (0 to 5 Years) and At-Risk Patients (6 to 64 Years) (1 of 2 - PCV) Pneumococcal Vaccines: Pediatrics (0 to 5 Years) and At-Risk Patients (6 to 64 Years) (1 of 2 - PCV) [facility] Start: 1980 ANNUAL PREVENTIVE PHYSICAL (INCLUDES MAAP) ANNUAL PREVENTIVE PHYSICAL (INCLUDES MAAP) [facility] Start: 1978 MMR Vaccines (1 of 1 - Standard series) MMR Vaccines (1 of 1 - Standard series) [facility] Start: 1977 COVID-19 Vaccine (#1) COVID-19 Vaccine (#1) [facility] Start: 1977 Colonoscopy Colonoscopy [facility] Start: 1977 COLORECTAL CANCER SCREENING COLORECTAL CANCER SCREENING [facility] Start: [address] Colonography [facility] Start: 1977 FIT-DNA (Cologuard) FIT-DNA (Cologuard) [facility] Start: 1977 FOBT/FIT FOBT/FIT [facility] Start: 1977 HEPATITIS B VACCINES (1 of 3 - 3-dose series) HEPATITIS B VACCINES (1 of 3 - 3-dose series) [facility] Start: 1977 HIV screening HIV Screening [facility] Start: 1977 Lipid panel Lipid Panel [facility] Start: 1977 Screening for malignant neoplasm of colon [facility] Start: 1977 Yearly Adult Physical Yearly Adult Physical [facility] End: 12-23-2024 Toeas-4-Fzjyqbdghts [Mass/volume] in Serum or Plasma Alpha-Fetoprotein Lab Routine 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 Hepatic fibrosis, advanced fibrosis Every 6 months for 2 Occurrences starting 12/24/2023 until 12/23/2024 [facility] Work Phone: Comment on above: Every 6 months for 2 Occurrences startin g 12/24/2023 until 12/23/2024 Bacteria identified in Urine by Culture [facility] End: 01-06-2024 Basic metabolic 2000 panel - Serum or Plasma Basic Metabolic Panel Lab Routine Morning draw (Lab) for 3 Occurrences starting 01/04/2024 until 01/06/2024, 1 completed [facility] Work Phone: Comment on above: Morning draw (Lab) for 3 Occurrences sta rting 01/04/2024 until 01/06/2024, 1 completed End: 01-09-2024 Basic metabolic 2000 panel - Serum or Plasma Basic Metabolic Panel Lab Routine Morning draw (Lab) for 3 Occurrences starting 01/07/2024 until 01/09/2024, 2 completed [facility] Work Phone: Comment on above: Morning draw (Lab) for 3 Occurrences sta rting 01/07/2024 until 01/09/2024, 2 completed End: 12-23-2024 Bilirubin.direct [Mass/volume] in Serum or Plasma Bilirubin, Direct Lab Routine 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 Hepatic fibrosis, advanced fibrosis Every 6 months for 2 Occurrences starting 12/24/2023 until 12/23/2024 [facility] Work Phone: Comment on above: Every 6 months for 2 Occurrences startin g 12/24/2023 until 12/23/2024 End: 02-06-2024 Blood type and Indirect antibody screen panel - Blood Type And Screen Lab Timed As needed (Lab) until discontinued starting 02/06/2024 [facility] Work Phone: Comment on above: As needed (Lab) until discontinued start ing 02/06/2024 End: 01-06-2024 CBC panel - Blood by Automated count CBC Lab Routine Morning draw (Lab) for 3 Occurrences starting 01/04/2024 until 01/06/2024, 1 completed [facility] Service Area Work Phone: Comment on above: Morning draw (Lab) for 3 Occurrences sta rting 01/04/2024 until 01/06/2024, 1 completed End: 02-06-2024 Choriogonadotropin ( test) [Presence] in Urine POCT , urine Point of Care Testing Routine Once (Lab) for 1 Occurrences starting 02/06/2024 until 02/06/2024 [facility] Service Area Work Phone: Comment on above: Once (Lab) for 1 Occurrences starting until 02/06/2024 End: 12-23-2024 Comprehensive metabolic 2000 panel - Serum or Plasma Comprehensive Metabolic Panel Lab Routine 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 Hepatic fibrosis, advanced fibrosis Every 6 months for 2 Occurrences starting 12/24/2023 until 12/23/2024 [facility] Work Phone: Comment on above: Every 6 months for 2 Occurrences startin g 12/24/2023 until 12/23/2024 Electrocardiogram, 1 2-lead PRN ACS symptoms Electrocardiogram, 12-lead PRN ACS symptoms ECG Routine As needed until discontinued starting 01/01/2024 [facility] system [facility] Work Phone: Comment on above: As needed until discontinued starting Electrocardiogram, 1 2-lead PRN ACS symptoms Electrocardiogram, 12-lead PRN ACS symptoms ECG Routine As needed until discontinued starting 01/06/2024 [facility] Work Phone: Comment on above: As needed until discontinued starting Electrocardiogram, 1 2-lead PRN ACS symptoms Electrocardiogram, 12-lead PRN ACS symptoms ECG Routine As needed until discontinued starting 01/27/2024 [facility] Work Phone: Comment on above: As needed until discontinued starting Lamnotmy incl w/dcmp rsn nrv root 1 intrspc lumbr Discectomy Posterior Lumbar Lumbar disc herniation with radiculopathy [facility] End: 06-23-2025 Liver Elastography (Fibroscan) Liver Elastography (Fibroscan) GI Routine 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 Hepatic fibrosis, advanced fibrosis 1 Occurrences starting 12/24/2023 until 06/23/2025 [facility] Work Phone: Comment on above: 1 Occurrences starting 12/24/2023 until 06/23/2025 MR Lumbar spine WO a nd W contrast IV MRI LUMBAR SPINE W WO CONTRAST Imaging STAT 10/30/2023 9:03 PM EDT [facility] Work Phone: Patient Education [facility] Work Phone: Patient referral [facility] Work Phone: End: 12-23-2024 Prothrombin time (PT) Protime-INR Lab Routine 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 Hepatic fibrosis, advanced fibrosis Every 6 months for 2 Occurrences starting 12/24/2023 until 12/23/2024 [facility] Work Phone: Comment on above: Every 6 months for 2 Occurrences startin g 12/24/2023 until 12/23/2024 End: 02-13-2023 US Liver limited [facility] Service Area Work Phone: Comment on above: Once for 1 Occurrences starting 02/14/20 until 02/13/2023 Immunizations Immunization Date Immunization Notes Care Provider Fa cility 01-27-2024 flu vaccine trivalen t (PF) (Fluarix/Fluzone/Flulav al) 6 months or greater injection Giulia Man MD Work Phone: [facility] Work Phone: 04-26-2023 hepatitis B vaccine, adult dosage Dax Lira [facility] 07-03-2020 SARS-CoV-2 (COVID-19 ) Ad26 vaccine, recombinant Dax Lira [facility] Payers Date Payer Category Payer Unknown [id number] 05-24-2023 Blue Cross Blue Sh[facility] [id number] 05-24-2023 Unknown [id number] 07-16-2022 Blue Cross Blue Shield [id number] 2.16.840.1.681678.19 04-25-2022 Medicaid [id number]. 1.13.129.2. 7.3.927064.315 04-25-2022 Unknown [id number]. 1.13.129.2. 7.3.530937.315 1977 Unknown [id number] 2.16.840.1.876227.3.579.2. 593 1977 Unknown [id number] 2.16.840.1.497743.3.579.2. 593 1977 Unknown [id number] 2.16.840.1.184228.3.579.2. 1069 1977 Unknown [id number] 2.16.840.1.082701.3.579.2. 176 1977 Unknown [id number] 2.16.840.1.266488.3.579.2. 176 1977 Unknown [id number] 2.16.840.1.929882.3.579.2. 727 1977 Unknown [id number] 2.16.840.1.572587.3.579.2. 727 1977 Unknown [id number] 2.16.840.1.483095.3.579.2. 727 1977 Unknown [id number] 2.16.840.1.367205.3.579.2. 727 1977 Unknown [id number] 2.16.840.1.480704.3.579.2. 727 1977 Unknown [id number] 2.16.840.1.380743.3.579.2. 727 1977 Unknown [id number] 2.16.840.1.190981.3.579.2. 718 1977 Unknown [id number] 2.16.840.1.019687.3.579.2. 718 1977 Unknown [id number] 2.16.840.1.176860.3.579.2. 718 1977 Unknown [id number] 2.16.840.1.091970.3.579.2. 718 1977 Unknown [id number] 2.16.840.1.843404.3.579.2. 718 1977 Unknown [id number] 2.16.840.1.727694.3.579.2. 196 1977 Unknown [id number] 2.16.840.1.432136.3.579.2. 196 1977 Unknown [id number] 2.16.840.1.117792.3.579.2. 196 1977 Unknown [id number] 2.16.840.1.478910.3.579.2. 196 1977 Unknown [id number] 2.16.840.1.140606.3.579.2. 4 1977 Unknown [id number] 2.16.840.1.641314.3.579.2. 1244 1977 Unknown [id number] 2.16.840.1.546312.3.579.2. 4 1977 Unknown [id number] 2.16.840.1.101910.3.579.2. 727 1977 Unknown [id number] 2.16.840.1.544320.3.579.2. 903 1977 Unknown [id number] 2.16.840.1.123363.3.579.2. 1244 1977 Unknown [id number] 2.16.840.1.946087.3.579.2. 1243 1977 Unknown [id number] 2.16.840.1.912443.3.579.2. 1243 1977 Unknown [id number] 2.16.840.1.745438.3.579.2. 1243 1977 Unknown [id number] 2.16.840.1.980083.3.579.2. 1243 1977 Unknown [id number] 2.16.840.1.987641.3.579.2. 3 1977 Unknown [id number] 2.16.840.1.297635.3.579.2. 1243 1977 Unknown [id number] 2.16.840.1.798339.3.579.2. 1242 1977 Unknown [id number] 2.16.840.1.300382.3.579.2. 124 1977 Unknown [id number] 2.16.840.1.130265.3.579.2. 1242 1977 Unknown [id number] 2.16.840.1.174003.3.579.2. 1242 1977 Unknown [id number] 2.16.840.1.766956.3.579.2. 1242 1977 Unknown [id number] 2.16.840.1.031863.3.579.2. 1242 1977 Unknown [id number] 2.16.840.1.780234.3.579.2. 1241 1977 Unknown [id number] 2.16.840.1.631234.3.579.2. 2 1977 Unknown [id number] 2.16.840.1.062993.3.579.2. 124 1977 Unknown [id number] 2.16.840.1.944277.3.579.2. 72 1977 Unknown [id number] 2.16.840.1.807040.3.579.2. 1977 Unknown [id number] 2.16.840.1.100120.3.579.2. 1977 Unknown [id number] 2.16.840.1.858841.3.579.2. 727 1977 Unknown [id number] 2.16.840.1.371550.3.579.2 1977 Unknown [id number] 2.16.840.1.036969.3.579.2 1977 Unknown [id number] 2.16.840.1.811508.3.579.2 1977 Unknown [id number] 2.16.840.1.467122.3.579.2 1977 Unknown [id number] 2.16.840.1.061058.3.579.2 1977 Unknown [id number] 2.16.840.1.247048.3.579. 1977 Unknown [id number] 2.16.840.1.681269.3.579. 1977 Unknown [id number] 2.16.840.1.964776.3.579. 1977 Unknown [id number] 2.16.840.1.959945.3.579. 1977 Unknown [id number] 2.16.840.1.761161.3.579. 1977 Unknown [id number] 2.16.840.1.388551.3.579.2 1977 Unknown [id number] 2.16.840.1.750747.3.579.2 1977 Unknown [id number] 2.16.840.1.434199.3.579.2 1977 Unknown [id number] 2.16.840.1.574140.3.579.2 1977 Unknown [id number] 2.16.840.1.396064.3.579.2 1977 Unknown [id number] 2.16.840.1.740590.3.579.2 1977 Unknown [id number] 2.16.840.1.732817.3.579.2. 1977 Unknown [id number] 2.16.840.1.458888.3.579.2 1977 Unknown [id number] 2.16.840.1.549637.3.579.2 1977 Unknown [id number] 2.16.840.1.091872.3.579.2 1977 Unknown [id number] 2.16.840.1.287425.3.579.2 1977 Unknown [id number] 2.16.840.1.613631.3.579.2 1977 Unknown [id number] 2.16.840.1.719893.3.579.2 1977 Unknown [id number] 2.16.840.1.313110.3.579.2 1977 Unknown [id number] 2.16.840.1.061862.3.579.2 1977 Unknown [id number] 2.16.840.1.145308.3.579.2 1977 Unknown [id number] 2.16.840.1.817121.3.579.2 1977 Unknown [id number] 2.16.840.1.251245.3.579.2 1977 Unknown [id number] 2.16.840.1.716145.3.579.2 1977 Unknown [id number] 2.16.840.1.286809.3.579.2 1977 Unknown [id number] 2.16.840.1.661373.3.579.2 1977 Unknown [id number] 2.16.840.1.230375.3.579.2 1977 Unknown [id number] 2.16.840.1.855560.3.579.2 1977 Unknown [id number] 2.16.840.1.466920.3.579.2 1977 Unknown [id number] 2.16.840.1.461231.3.579.2 1977 Unknown [id number] 2.16.840.1.415929.3.579.2 1977 Unknown [id number] 2.16.840.1.007775.3.579.2 1977 Unknown [id number] 2.16.840.1.986983.3.579.2 1977 Unknown [id number] 2.16.840.1.252584.3.579. 1977 Unknown [id number] 2.16.840.1.035170.3.579. 1977 Unknown [id number] 2.16.840.1.779187.3.579.2 1977 Unknown [id number] 2.16.840.1.397007.3.579.2 1977 Unknown [id number] 2.16.840.1.635563.3.579.2 1977 Unknown [id number] 2.16.840.1.155046.3.579.2 1977 Unknown [id number] 2.16.840.1.608124.3.579.2 1977 Unknown [id number] 2.16.840.1.176677.3.579.2 1977 Unknown [id number] 2.16.840.1.780396.3.579.2 1977 Unknown [id number] 2.16.840.1.093638.3.579.2 1977 Unknown [id number] 2.16.840.1.401886.3.579.2. 727 1977 Unknown [id number] 2.16.840.1.177380.3.579.2. 72 1977 Unknown [id number] 2.16.840.1.578824.3.579.2. 72 1977 Unknown [id number] 2.16.840.1.767470.3.579.2. 72 1977 Unknown [id number] 2.16.840.1.120195.3.579.2. 72 1977 Unknown [id number] 2.16.840.1.868425.3.579.2 1977 Unknown [id number] 2.16.840.1.121934.3.579.2. 72 1977 Unknown [id number] 2.16.840.1.853697.3.579.2 72 1977 Unknown [id number] 2.16.840.1.615033.3.579.2. 72 1977 Unknown [id number] 2.16.840.1.548733.3.579.2 1977 Unknown [id number] 2.16.840.1.311778.3.579.2. 72 1977 Unknown [id number] 2.16.840.1.697959.3.579.2. 72 1977 Unknown [id number] 2.16.840.1.208670.3.579.2. 727 1977 Unknown [id number] 2.16.840.1.692086.3.579.2. 1246 1977 Unknown [id number] 2.16.840.1.721673.3.579.2. 1246 1977 Unknown [id number] 2.16.840.1.525539.3.579.2. 1246 1977 Unknown [id number] 2.16.840.1.641462.3.579.2. 124 1977 Unknown [id number] 2.16.840.1.876452.3.579.2. 1245 1977 Unknown [id number] 2.16.840.1.360218.3.579.2. 1244 1977 Unknown [id number] 2.16.840.1.875781.3.579.2. 1244 1977 Unknown [id number] 2.16.840.1.768191.3.579.2. 1244 1977 Unknown [id number] 2.16.840.1.741374.3.579.2. 1244 1977 Unknown [id number] 2.16.840.1.285092.3.579.2. 1244 1977 Unknown [id number] 2.16.840.1.589486.3.579.2. 1244 1977 Unknown [id number] 2.16.840.1.494016.3.579.2. 1244 1977 Unknown [id number] 2.16.840.1.286715.3.579.2. 1244 1977 Unknown [id number] 2.16.840.1.062744.3.579.2. 1244 1977 Unknown [id number] 2.16.840.1.534043.3.579.2. 1244 1977 Unknown [id number] 2.16.840.1.131331.3.579.2. 1244 1977 Unknown [id number] 2.16.840.1.082544.3.579.2. 1244 1977 Unknown [id number] 2.16.840.1.483959.3.579.2. 1244 1977 Unknown [id number] 2.16.840.1.074828.3.579.2. 1244 1977 Unknown [id number] 2.16.840.1.799872.3.579.2. 1244 1977 Unknown [id number] 2.16.840.1.713418.3.579.2. 1244 1977 Unknown [id number] 2.16.840.1.290132.3.579.2. 1244 1977 Unknown [id number] 2.16.840.1.583021.3.579.2. 1244 1977 Unknown [id number] 2.16.840.1.970081.3.579.2. 1244 1977 Unknown [id number] 2.16.840.1.479491.3.579.2. 1244 1977 Unknown [id number] 2.16.840.1.398227.3.579.2. 1244 1977 Unknown [id number] 2.16.840.1.393206.3.579.2. 1244 1977 Unknown [id number] 2.16.840.1.365338.3.579.2. 1244 1977 Unknown [id number] 2.16.840.1.958036.3.579.2. 1244 1977 Unknown [id number] 2.16.840.1.314778.3.579.2. 1244 1977 Unknown [id number] 2.16.840.1.016502.3.579.2. 1244 1977 Unknown [id number] 2.16.840.1.920859.3.579.2. 1244 1977 Unknown [id number] 2.16.840.1.411528.3.579.2. 1244 1977 Unknown [id number] 2.16.840.1.499359.3.579.2. 1244 1977 Unknown [id number] 2.16.840.1.361492.3.579.2. 1245 1977 Unknown [id number] 2.16.840.1.954156.3.579.2. 727 1977 Unknown [id number] 2.16.840.1.450038.3.579.2. 727 1977 Unknown [id number] 2.16.840.1.227775.3.579.2. 72 1977 Unknown [id number] 2.16.840.1.208258.3.579.2. 727 1977 Unknown [id number] 2.16.840.1.811902.3.579.2. 72 1977 Unknown [id number] 2.16.840.1.151514.3.579.2. 7 1977 Unknown [id number] 2.16.840.1.932284.3.579.2. 727 1977 Unknown [id number] 2.16.840.1.789728.3.579.2. 1241 1977 Unknown [id number] 2.16.840.1.257509.3.579.2. 1241 1977 Unknown [id number] 2.16.840.1.097396.3.579.2. 1241 1977 Unknown [id number] 2.16.840.1.900959.3.579.2. 1241 1977 Unknown [id number] 2.16.840.1.832810.3.579.2. 1241 1977 Unknown [id number] 2.16.840.1.648148.3.579.21241 1977 Unknown [id number] 2.16.840.1.724625.3.579.2. 1241 1977 Unknown [id number] 2.16.840.1.493315.3.579.21241 1977 Unknown [id number] 2.16.840.1.463278.3.579.2. 1242 1977 Unknown [id number] 2.16.840.1.544634.3.579.2. 1242 1977 Unknown [id number] 2.16.840.1.482429.3.579.2. 1242 1977 Unknown [id number] 2.16.840.1.788900.3.579.2. 1242 1977 Unknown [id number] 2.16.840.1.119780.3.579.2. 124 1977 Unknown [id number] 2.16.840.1.185773.3.579.2. 1241 1977 Unknown [id number] 2.16.840.1.618743.3.579.2. 1242 1977 Unknown [id number] 2.16.840.1.361707.3.579.2. 1242 1977 Unknown [id number] 2.16.840.1.794594.3.579.2. 1242 1977 Unknown [id number] 2.16.840.1.912478.3.579.2. 727 03-25-1957 Medicaid [id number] 03-25-1957 Self-pay [id number] Medicaid [id number] Private Health Insurance [id number] Private Health Insurance [employer] [id number] Unknown [id number] 2.16.840.1.121664.19 Unknown COVID19 [employer] Uni nsured Fund [id number] Unknown [id number] 2.16.840.1.495671.3.579.2. 246 Unknown [id number] 2.16.840.1.873655.3.579.2. 246 Unknown [id number] 2.16.840.1.341712.3.579.2. 246 Unknown [id number] 2.16.840.1.831779.3.579.2. 246 Unknown [id number] 2.16.840.1.564079.3.579.2. 531 Unknown [id number] 2.16.840.1.105319.3.579.2. 531 Unknown [id number] 2.16.840.1.199756.3.579.2. 531 Unknown [id number] 2.16.840.1.955765.3.579.2. 531 Unknown [id number] 2.16.840.1.671955.3.579.2. 531 Unknown [id number] 2.16.840.1.406029.3.579.2. 531 Unknown [id number] 2.16.840.1.978997.3.579.2. 531 Unknown [id number] 2.16.840.1.427739.3.579.2. 531 Unknown [id number] 2.16.840.1.826878.3.579.2. 531 Unknown [id number] 2.16.840.1.397650.3.579.2. 531 Unknown [id number] 2.16.840.1.103698.3.579.2. 531 Unknown [id number] 2.16.840.1.144519.3.579.2. 531 Unknown [id number] 2.16.840.1.031954.3.579.2. 531 Unknown [id number] 2.16.840.1.534901.3.579.2. 531 Unknown [id number] 2.16.840.1.447560.3.579.2. 531 Unknown [id number] 2.16.840.1.702771.3.579.2. 531 Unknown [id number] 2.16.840.1.135694.3.579.2. 531 Unknown [id number] 2.16.840.1.273334.3.579.2. 531 Unknown [id number] 2.16.840.1.555211.3.579.2. 531 Unknown [id number] 2.16.840.1.997539.3.579.2. 531 Unknown [id number] 2.16.840.1.485472.3.579.2. 531 Unknown [id number] 2.16.840.1.832756.3.579.2. 531 Social History Date Type Detail Facility Tobacco Current, Cigaret yolie, 10 per day. [facility] Other Comment on above: 10 cigs per day every day smoker Start: 01-15-2023 End: 01-28-2024 Sex Assigned At Female [facility] Other Start: 11-13-2021 End: 02-05-2024 Tobacco smoking status OHIS Smoker (finding) [facility] Start: 1975 Sex Assigned At Female [facility] Tobacco smoking status No Smoking Status Entered [facility] Start: 03-25-1991 End: 11-05-2023 Tobacco smoking status OHIS Smokes tobacco daily [facility] Start: 03-25-1991 History of tobacco use Cigarette Smoker [facility] Start: 12-04-2022 End: 01-28-2024 Cigarettes smoked current (pack per day) - Reported 0.5 [facility] Start: 12-04-2022 End: 11-05-2023 Tobacco use and exposure Smokeless tobacco non-user [facility] Start: 1975 Sex Assigned At Not on file [facility] Start: 09-29-2023 Tobacco smoking status NHIS Never smoked tobacco (finding) [facility] Start: 01-15-2023 Alcohol intake Ex-drinker (finding) [facility] Work Phone: Start: 01-05-2023 End: 02-09-2024 Exposure to SARS-CoV-2 (event) Not sure [facility] Start: 01-22-2023 End: 08-27-2023 Alcohol intake Current drinker of alcohol (finding) [facility] Work Phone: Start: 01-22-2023 Alcohol Comment Socially [facility] Work Phone: Start: 01-22-2023 End: 09-17-2023 Tobacco smoking status Heavy tobacco smoker (finding) [facility] Tobacco smoking status Never [facility] Start: 08-21-2023 Gender identity Identifies as female gender (finding) [facility] Work Phone: Start: 01-31-2014 End: 10-30-2023 Alcohol intake Current non-drinker of alcohol (finding) [facility] How often to you hav e a drink containing alcohol? Never [facility] Start: 11-26-2023 With Spouse/Significant Other With Spouse/Significant Other [facility] Start: 11-26-2023 Never Used Never Used [facility] Start: 11-26-2023 0 0 [facility] Start: 11-26-2023 Denies Use Denies Use [facility] Start: 11-26-2023 Cambodian Cambodian [facility] Start: 11-27-2023 End: 02-05-2024 Sex Female (finding) [facility] Start: 12-24-2023 End: 02-09-2024 Alcoholic beverage intake Lifetime non-drinker (finding) [facility] Work Phone: Has the electric, gas, oil, or water company threatened to shut off services in your home in past 12Mo No [facility] Are you now , , , , never or living with a partner? [facility] Work Phone: How hard is it for you to pay for the very basics like food, housing, medical care, and heating Not very hard [facility] Work Phone: Do you feel stress - tense, restless, nervous, or anxious, or unable to sleep at night because your mind is troubled all the time - these days [OSQ] Not at all [facility] Work Phone: (I/We) worried whether (my/our) food would run out before (I/we) got money to buy more. Never true [facility] Work Phone: NEGATED: Highlighted row [facility] Medical Equipment Procedure Code Equipment Code Equipment Origin al Text Equipment Identifier Dates Lead, Octrode - [id number] - [id number] Start: 08-21-2023 Eterna Implantab le Pulse Generator [id number] Start: 09-23-2023 Comment on above: Description: System cost includes: Generator - [id number] Sweatband Shaper - [id number] Sweatband Shaper Kit, Lumbar - [id number] Patient Magnet - 1210 Eterna Manual with [facility] - [id number] Patient Controller - [id number] Lead, Octrode 60 cm - [id number] - [id number] Start: 09-23-2023 Lead, Octrode 60 cm - [id number] - [id number] Start: 09-23-2023 Lead, Octrode 60 cm - [id number] - [id number] Start: 09-23-2023 Goals Date Patient Goal Desired Activity /State Functional Status Date Assessment Result Facility 02-20-2024 Functional Status N/A [facility] 02-16-2024 Functional Status N/A [facility] 02-14-2024 Functional Status N/A [facility] 02-04-2024 Functional Status N/A [facility] 01-25-2024 Functional Status N/A [facility] 01-23-2024 Functional Status N/A [facility] 01-14-2024 Functional Status N/A [facility] 01-06-2024 Functional Status N/A [facility] 01-03-2024 Are you deaf, or do you have serious difficulty hearing No 01/03/2024 3:34 PM Fozia Hernandez, RN No [facility] Work Phone: 01-03-2024 Are you blind, or do you have serious difficulty seeing, even when wearing glasses No 01/03/2024 3:34 PM Fozia Hernandez, RN No [facility] Work Phone: 01-03-2024 Do you have serious difficulty walking or climbing stairs Yes 01/03/2024 3:34 PM Fozia Hernandez, RN Yes [facility] Work Phone: 01-03-2024 Do you have difficul ty dressing or bathing No 01/03/2024 3:34 PM Fozia Hernandez, DARSHAN No [facility] Work Phone: 01-03-2024 Because of a physica l, mental, or emotional condition, do you have difficulty doing errands alone such as visiting a physician's office or shopping No 01/03/2024 3:34 PM Fozia Hernandez, RN No [facility] Work Phone: 12-26-2023 Functional Status N/A [facility] 12-24-2023 Functional Status N/A [facility] 12-13-2023 Functional Status N/A [facility] 12-01-2023 Functional Status N/A [facility] 11-27-2023 Functional Status N/A [facility] 11-24-2023 Functional Status N/A [facility] 11-05-2023 Functional Status N/A [facility] 10-30-2023 Functional Status N/A [facility] 10-26-2023 Functional Status N/A [facility] 10-04-2023 Functional Status N/A [facility] 09-25-2023 Functional Status N/A [facility] 09-21-2023 Functional Status N/A [facility] 09-20-2023 Functional Status N/A [facility] 09-17-2023 Functional Status N/A [facility] 09-09-2023 Functional Status N/A [facility] 09-06-2023 Functional Status N/A [facility] 09-02-2023 Functional Status N/A [facility] 08-30-2023 Functional Status N/A [facility] 08-15-2023 Functional Status N/A [facility] 08-14-2023 Functional Status N/A [facility] 08-12-2023 Functional Status N/A [facility] 08-05-2023 Functional Status N/A [facility] 08-02-2023 Functional Status N/A [facility] 07-31-2023 Functional Status N/A [facility] 07-26-2023 Functional Status N/A [facility] 07-17-2023 Functional Status N/A [facility] 07-15-2023 Functional Status N/A [facility] 07-14-2023 Functional Status N/A [facility] 07-11-2023 Functional Status N/A [facility] 07-06-2023 Functional Status N/A [facility] 06-29-2023 Functional Status N/A [facility] 06-27-2023 Functional Status N/A [facility] 06-24-2023 Functional Status N/A [facility] 06-22-2023 Functional Status N/A [facility] 06-15-2023 Functional Status N/A [facility] 06-11-2023 Functional Status N/A [facility] 06-03-2023 Functional Status N/A [facility] 05-31-2023 Functional Status N/A [facility] 05-26-2023 Functional Status N/A [facility] 05-24-2023 Functional Status N/A [facility] 05-16-2023 Functional Status N/A [facility] 05-14-2023 Functional Status N/A [facility] 05-12-2023 Functional Status N/A [facility] 05-11-2023 Functional Status N/A [facility] 05-08-2023 Functional Status N/A [facility] 04-26-2023 Functional Status N/A [facility] 04-22-2023 Functional Status N/A [facility] 04-11-2023 Functional Status N/A [facility] 04-10-2023 Functional Status N/A [facility] 04-05-2023 Functional Status N/A [facility] 04-02-2023 Functional Status N/A [facility] 03-26-2023 Functional Status N/A [facility] 03-23-2023 Functional Status N/A [facility] 03-20-2023 Functional Status N/A [facility] 03-11-2023 Functional Status N/A [facility] 02-12-2023 Functional Status N/A [facility] 02-07-2023 Functional Status N/A [facility] 01-29-2023 Functional Status N/A [facility] 01-22-2023 Functional Status N/A [facility] 01-14-2023 Functional Status N/A [facility] 01-12-2023 Functional Status N/A [facility] 01-10-2023 Functional Status N/A [facility] 01-04-2023 Functional Status N/A [facility] 01-02-2023 Functional Status N/A [facility] 10-04-2023 Functional Status N/A [facility] 12-23-2022 Functional Status N/A [facility] 12-18-2022 Functional Status N/A [facility] 12-13-2022 Functional Status N/A [facility] 12-12-2022 Functional Status N/A [facility] 12-07-2022 Functional Status N/A [facility] 09-04-2022 Functional Status N/A [facility] Mental Status Date Assessment Result Facility 01-03-2024 Because of a physica l, mental, or emotional condition, do you have serious difficulty concentrating, remembering, or making decisions No 01/03/2024 3:34 PM Fozia Hernandez RN No [facility] Work Phone: Clinical Notes 02-15-2021 to 02-20-2024 Note Date & Type Note Facility 02-20-2024 Hospital Discharg e instructions Patient Education 02/20/2024 17:25:33 Urinary Tract Infection, Adult Urinary Tract Infection, Adult A urinary tract infection (UTI) is an infection of any part of the urinary tract. The urinary tract includes the kidneys, ureters, bladder, and urethra. These organs make, store, and get rid of urine in the body. An upper UTI affects the ureters and kidneys. A lower UTI affects the bladder and urethra. What are the causes? Most urinary tract infections are caused by bacteria in your genital area around your urethra, where urine leaves your body. These bacteria grow and cause inflammation of your urinary tract. What increases the risk? You are more likely to develop this condition if: You have a urinary catheter that stays in place. You are not able to control when you urinate or have a bowel movement (incontinence). You are female and you: ?Use a spermicide or diaphragm for control. ?Have low estrogen levels. ?Are . You have certain genes that increase your risk. You are sexually active. You take antibiotic medicines. You have a condition that causes your flow of urine to slow down, such as: ?An enlarged prostate, if you are male. ?Blockage in your urethra. ?A kidney stone. ?A nerve condition that affects your bladder control (neurogenic bladder). ?Not getting enough to drink, or not urinating often. You have certain medical conditions, such as: ?Diabetes. ?A weak disease-fighting system (immunesystem). ?Sickle cell disease. ?Gout. ?Spinal cord injury. What are the signs or symptoms? Symptoms of this condition include: Needing to urinate right away (urgency). Frequent urination. This may include small amounts of urine each time you urinate. Pain or burning with urination. Blood in the urine. Urine that smells bad or unusual. Trouble urinating. Cloudy urine. Vaginal discharge, if you are female. Pain in the abdomen or the lower back. You may also have: Vomiting or a decreased appetite. Confusion. Irritability or tiredness. A fever or chills. Diarrhea. The first symptom in older adults may be confusion. In some cases, they may not have any symptoms until the infection has worsened. How is this diagnosed? This condition is diagnosed based on your medical history and a physical exam. You may also have other tests, including: Urine tests. Blood tests. Tests for STIs (sexually transmitted infections). If you have had more than one UTI, a cystoscopy or imaging studies may be done to determine the cause of the infections. How is this treated? Treatment for this condition includes: Antibiotic medicine. Rlnx-eam-uaokwxg medicines to treat discomfort. Drinking enough water to stay hydrated. If you have frequent infections or have other conditions such as a kidney stone, you may need to see a health care provider who specializes in the urinary tract (urologist). In rare cases, urinary tract infections can cause sepsis. Sepsis is a life-threatening condition that occurs when the body responds to an infection. Sepsis is treated in the hospital with IV antibiotics, fluids, and other medicines. Follow these instructions at home: Medicines Take khra-cti-manjjot and prescription medicines only as told by your health care provider. If you were prescribed an antibiotic medicine, take it as told by your health care provider. Do not stop using the antibiotic even if you start to feel better. General instructions Make sure you: ?Empty your bladder often and completely. Do not hold urine for long periods of time. ?Empty your bladder after sex. ?Wipe from front to back after urinating or having a bowel movement if you are female. Use each tissue only one time when you wipe. Drink enough fluid to keep your urine pale yellow. Keep all follow-up visits. This is important. Contact a health care provider if: Your symptoms do not get better after 1 2 days. Your symptoms go away and then return. Get help right away if: You have severe pain in your back or your lower abdomen. You have a fever or chills. You have nausea or vomiting. Summary A urinary tract infection (UTI) is an infection of any part of the urinary tract, which includes the kidneys, ureters, bladder, and urethra. Most urinary tract infections are caused by bacteria in your genital area. Treatment for this condition often includes antibiotic medicines. If you were prescribed an antibiotic medicine, take it as told by your health care provider. Do not stop using the antibiotic even if you start to feel better. Keep all follow-up visits. This is important. This information is not intended to replace advice given to you by your health care provider. Make sure you discuss any questions you have with your health care provider. Document Revised: 10/16/2020 Document Reviewed: 10/21/2020 [employer] Patient Education 2023 [employer] Acquisition. Follow Up Care 02/20/2024 16:41:49 With:XXXX NONE Address: [place] When:02/23/2024 17:23:54 Comments:Call the office of your primary care [...] weakness, or any new or worsening symptoms. [facility] 02-20-2024 Evaluation + Plan note Extrac lisa from: Title:ED Note Author:Nikhil Tubbs DO Date:04/21/23 Acute UTI (N39.0: Urinary tr act infection, site not specified) Orders: acetaminophen-oxycodone, 1 tab(s), Tab, Oral, Once, Stop date 02/20/24 17:23:00 EST, STAT, Start date 02/20/24 17:23:00 EST ciprofloxacin, 250 mg = 1 tab(s), Oral, q12hr, X 5 day(s), # 10 tab(s), Refills(s) 0, [id number], cm, 02/20/24 16:44:00 EST, Height/Length Dosing, 115, kg, 02/20/24 16:44:00 EST, Weight Dosing ciprofloxacin, 250 mg = 1 tab(s), Tab, Oral, Once, Stop date 02/20/24 17:23:00 EST, STAT, Start date 02/20/24 17:23:00 EST, 02/20/24 17:23:00 EST UA with Cult Rflx Urine Culture Diagnostic Tests Pending * Urine Culture 02/20/24 Future Scheduled Tests Laboratory* TSH With T4fr Reflex 07/17/23 * Urinalysis with Micro 07/17/23 * Lipid Panel 07/17/23 * Drug Screen Urine 07/17/23 Radiology* [place] Mamm Screen w/CAD if perf and 3D Kenan 07/17/23 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 [Tietze]) Cough (R05.9: Cough, unspecified) Pneumonia (J18.9: Pneumonia, unspecified organism) Shortness of breath (R06.02: Shortness of breath) Orders: albuterol-ipratropium, 3 mL, Soln-Inh, Inhalation, Once, Stop date 02/16/24 9:33:00 EST, STAT, Start date 02/16/24 9:33:00 EST cefdinir, 300 mg = 1 cap(s), Oral, q12hr, X 7 day(s), # 14 cap(s), Refills(s) 0, Pharmacy: [facility]/pharmacy #[id number], 160, cm, 02/16/24 9:23:00 EST, Height/Length Dosing, 114.8, kg, 02/16/24 9:23:00 EST, Weight Dosing dexamethasone, 8 mg = 2 mL, Injection, IntraMuscular, Once, Stop date 02/16/24 10:00:00 EST, STAT, Start date 02/16/24 10:00:00 EST, 02/16/24 10:00:00 EST ketorolac, 30 mg = 1 mL, Injection, IntraMuscular, Once, Stop date 02/16/24 9:34:00 EST, STAT, Start date 02/16/24 9:34:00 EST, 02/16/24 9:34:00 EST morphine, 4 mg = 1 mL, Injection, IntraMuscular, Once, Stop date 02/16/24 10:57:00 EST, STAT, Start date 02/16/24 10:57:00 EST, 02/16/24 10:57:00 EST Basic Metabolic Panel CBC w/ Auto Diff ED Cardiac Monitoring eGFR Extra SST Tube Oxygen Saturation PT & PTT Saline Lock Insert Troponin 0 Hr. Troponin 1 Hr. XR Chest Single View Future Scheduled Tests Laboratory* TSH With T4fr Reflex 07/17/23 * Urinalysis with Micro 07/17/23 * Lipid Panel 07/17/23 * Drug Screen Urine 07/17/23 Radiology* [place] Mamm Screen w/CAD if perf and 3D Kenan 07/17/23 [facility] 11-24-2024 Hospital Discharge instructions Patient Education 02/16/2024 11:52:05 Community-Acquired Pneumonia, Adult Community-Acquired Pneumonia, Adult Pneumonia is a lung infection that causes inflammation and the buildup of mucus and fluids in the lungs. This may cause coughing and difficulty breathing. Community-acquired pneumonia is pneumonia that develops in people who are not, and have not recently been, in a hospital or other health care facility. Usually, pneumonia develops as a result of an illness that is caused by a virus, such as the commoncold and the flu (influenza). It can also be caused by bacteria or fungi. While the common cold andinfluenza can pass from person to person (are contagious), pneumonia itself is not considered contagious. What are the causes? This condition may be caused by: Viruses. Bacteria. Fungi. What increases the risk? The following factors may make you more likely to develop this condition: Being over age 65 or having certain medical conditions, such as: ?A long-term (chronic) disease, such as: chronic obstructive pulmonary disease (COPD), asthma, heart failure, diabetes, or kidney disease. ?A condition that increases the risk of breathing in (aspirating) mucus and other fluids from your mouth and nose. ?A weakened body defense system (immune system). Having had your spleen removed (splenectomy). The spleen is the organ that helps fight germs and infections. Not cleaning your teeth and gums well (poor dental hygiene). Using tobacco products. Traveling to places where germs that cause pneumonia are present or being near certain animals or animal habitats that could have germs that cause pneumonia. What are the signs or symptoms? Symptoms of this condition include: A dry cough or a wet (productive) cough. A fever, sweating, or chills. Chest pain, especially when breathing deeply or coughing. Fast breathing, difficulty breathing, or shortness of breath. Tiredness (fatigue) and muscle aches. How is this diagnosed? This condition may be diagnosed based on your medical history or a physical exam. You may also havetests, including: Imaging, such as a chest X-ray or lung ultrasound. Tests of: ?The level of oxygen and other gases in your blood. ?Mucus from your lungs (sputum). ?Fluid around your lungs (pleural fluid). ?Your urine. How is this treated? Treatment for this condition depends on many factors, such as the cause of your pneumonia, your medicines, and other medical conditions that you have. For most adults, pneumonia may be treated at home. In some cases, treatment must happen in a hospital and may include: Medicines that are given by mouth (orally) or through an IV, including: ?Antibiotic medicines, if bacteria caused the pneumonia. ?Medicines that kill viruses (antiviral medicines), if a virus caused the pneumonia. Oxygen therapy. Severe pneumonia, although rare, may require the following treatments: Mechanical ventilation.This procedure uses a machine to help you breathe if you cannot breathe wellon your own or maintain a safe level of blood oxygen. Thoracentesis. This procedure removes any buildup of pleural fluid to help with breathing. Follow these instructions at home: Medicines Take niwa-rea-vmulydd and prescription medicines only as told by your health care provider. Take cough medicine only if you have trouble sleeping. Cough medicine can prevent your body from removing mucus from your lungs. If you were prescribed antibiotics, take them as told by your health care provider. Do not stop taking the antibiotic even if you start to feel better. Lifestyle Do not drink alcohol. Do not use any products that contain nicotine or tobacco. These products include cigarettes, chewing tobacco, and vaping devices, such as e-cigarettes. If you need help quitting, ask your health careprovider. Eat a healthy diet. This includes plenty of vegetables, fruits, whole grains, low-fat dairy products, and lean protein. General instructions Rest a lot and get at least 8 hours of sleep each night. Sleep in a partly upright position at night. Place a few pillows under your head or sleep in a reclining chair. Return to your normal activities as told by your health care provider. Ask your health care provider what activities are safe for you. Drink enough fluid to keep your urine pale yellow. This helps to thin the mucus in your lungs. If your throat is sore, gargle with a mixture of salt and water 3 4 times a day or as needed. To make salt water, completely dissolve 1 tsp (3 6 g) of salt in 1 cup (237 mL) of warm water. Keep all follow-up visits. How is this prevented? You can lower your risk of developing community-acquired pneumonia by: Getting the pneumonia vaccine. There are different types and schedules of pneumonia vaccines. Ask your health care provider which option is best for you. Consider getting the pneumonia vaccine if: ?You are older than 65 years of age. ?You are 19 65 years of age and are receiving cancer treatment, have chronic lung disease, or have other medical conditions that affect your immune system. Ask your health care provider if this applies to you. Getting your influenza vaccine every year. Ask your health care provider which type of vaccine is best for you. Getting regular dental checkups. Washing your hands often with soap and water for at least 20 seconds. If soap and water are not available, use hand regulator mechanic. Contact a health care provider if: You have a fever. You have trouble sleeping because you cannot control your cough with cough medicine. Get help right away if: Your shortness of breath becomes worse. Your chest pain increases. Your sickness becomes worse, especially if you are an older adult or have a weak immune system. You cough up blood. These symptoms may be an emergency. Get help right away. Call 911. Do not wait to see if the symptoms will go away. Do not drive yourself to the hospital. Summary Pneumonia is an infection of the lungs. Community-acquired pneumonia develops in people who have not been in the hospital. It can be causedby bacteria, viruses, or fungi. This condition may be treated with antibiotics or antiviral medicines. Severe pneumonia may require a hospital stay and treatment to help with breathing. This information is not intended to replace advice given to you by your health care provider. Make sure you discuss any questions you have with your health care provider. Document Revised: 05/09/2022 Document Reviewed: 05/09/2022 [employer] Patient Education 2023 [employer]quisition. 02/16/2024 11:52:05 Costochondritis Costochondritis Costochondritis is inflammation of the tissue (cartilage) that connects the ribs to the breastbone (sternum). This causes pain in the front of the chest. The pain often starts slowly and involves more than one rib. What are the causes? This condition results from stress on the cartilage where your ribs attach to your sternum. The exact cause of this stress is not always known. The cause may be: Chest injury. Exercise or activity. This may include lifting. Severe coughing. What increases the risk? You are more likely to develop this condition if: You are female. You are 30 40 years old. You just started a new exercise or work activity. You have low levels of vitamin D. You have a condition that makes you cough often. What are the signs or symptoms? The main symptom of this condition is chest pain. The pain: Starts slowly and can be sharp or dull. Gets worse with deep breathing, coughing, or exercise. Gets better with rest. May be worse when you press on the affected area of your ribs and sternum. How is this diagnosed? This condition is diagnosed based on your symptoms, your medical history, and a physical exam. Yourhealth care provider will check for pain when pressing on your sternum. You may also have tests to rule out other causes of chest pain. These may include: A chest X-ray. This may be done to check for lung problems. An electrocardiogram (ECG). This may be done to see if you have a heart problem that could be causing the pain. An imaging scan. This may be done to rule out a broken bone (fracture) in your chest or ribcage. How is this treated? This condition may go away on its own over time. Your health care provider may prescribe an NSAID, such as ibuprofen, to reduce pain and inflammation. Treatment may also include: Resting and avoiding activities that make pain worse. Putting heat or ice on the area to reduce pain and inflammation. Doing exercises to stretch your chest muscles. If these treatments do not help, your health care provider may inject a numbing medicine at the spot where the sternum and rib connect. This can help relieve the pain. Follow these instructions at home: Managing pain, stiffness, and swelling If directed, put ice on the painful area. To do this: ?Put ice in [...] the heat on for 20 30 minutes. If your skin turns bright red, remove the heat or ice right away to prevent skin damage. The risk of skin damage is higher if you cannot feel pain, heat, or cold. Activity Rest as told by your health care provider. Avoid activities that make pain worse. This includes activities that use the muscles in your chest, abdomen, and sides. You may have to avoid lifting. Ask your health care provider how much you can safely lift. Return to your normal activities as told by your health care provider. Ask your health care provider what activities are safe for you. General instructions Take vmqc-lyr-[id number] and prescription medicines only as told by your health care provider. Contact a health care provider if: You have chills or a fever. Your pain does not go away, or it gets worse. You have a cough that does not go away. Get help right away if: You feel short of breath. You have severe chest pain that does not get better with medicines, heat, or ice. These symptoms may be an emergency. Get help right away. Call 911. Do not wait to see if the symptoms will go away. Do not drive yourself to the hospital. This information is not intended to replace advice given to you by your health care provider. Make sure you discuss any questions you have with your health care provider. Document Revised: 09/27/2022 Document Reviewed: 09/27/2022 [employer] Patient Education 2023 [employer]quisition. Follow Up Care 02/16/2024 09:18:00 With:Cheyanne Rosas Address: [address] [place] [address] [place], [facility] [place] [phone] Business (1) When:02/19/2024 11:44:12 [facility] 11-24-2024 NoteED Patient Education Note Infectious Disease Community-Acquired Pneumonia, Adult Pneumonia is a lung infection that causes inflammation and the buildup of mucus and fluids in the lungs. This may cause coughing and difficulty breathing. Community-acquired pneumonia is pneumonia that develops in people who are not, and have not recently been, in a hospital or other health care facility. Usually, pneumonia develops as a result of an illness that is caused by a virus, such as the commoncold and the flu (influenza). It can also be caused by bacteria or fungi. While the common cold andinfluenza can pass from person to person (are contagious), pneumonia itself is not considered contagious. What are the causes? This condition may be caused by: ??? Viruses. ??? Bacteria. ??? Fungi. What increases the risk? The following factors may make you more likely to develop this condition: ??? Being over age 65 or having certain medical conditions, such as: ? A long-term (chronic) disease, such as: chronic obstructive pulmonary disease (COPD), asthma, heart failure, diabetes, or kidney disease. ? A condition that increases the risk of breathing in (aspirating) mucus and other fluids from yourmouth and nose. ? A weakened body defense system (immune system). ??? Having had your spleen removed (splenectomy). The spleen is the organ that helps fight germs and infections. ??? Not cleaning your teeth and gums well (poor dental hygiene). ??? Using tobacco products. ??? Traveling to places where germs that cause pneumonia are present or being near certain animals or animal habitats that could have germs that cause pneumonia. What are the signs or symptoms? Symptoms of this condition include: ??? A dry cough or a wet (productive) cough. ??? A fever, sweating, or chills. ??? Chest pain, especially when breathing deeply or coughing. ??? Fast breathing, difficulty breathing, or shortness of breath. ??? Tiredness (fatigue) and muscle aches. How is this diagnosed? This condition may be diagnosed based on your medical history or a physical exam. You may also havetests, including: ??? Imaging, such as a chest X-ray or lung ultrasound. ??? Tests of: ? The level of oxygen and other gases in your blood. ? Mucus from your lungs (sputum). ? Fluid around your lungs (pleural fluid). ? Your urine. How is this treated? Treatment for this condition depends on many factors, such as the cause of your pneumonia, your medicines, and other medical conditions that you have. For most adults, pneumonia may be treated at home. In some cases, treatment must happen in a hospital and may include: ??? Medicines that are given by mouth (orally) or through an IV, including: ? Antibiotic medicines, if bacteria caused the pneumonia. ? Medicines that kill viruses (antiviral medicines), if a virus caused the pneumonia. ??? Oxygen therapy. Severe pneumonia, although rare, may require the following treatments: ??? Mechanical ventilation.This procedure uses a machine to help you breathe if you cannot breathe well on your own or maintain a safe level of blood oxygen. ??? Thoracentesis. This procedure removes any buildup of pleural fluid to help with breathing. Follow these instructions at home: Medicines ??? Take bdwq-vwa-vrqufrv and prescription medicines only as told by your health care provider. ??? Take cough medicine only if you have trouble sleeping. Cough medicine can prevent your body from removing mucus from your lungs. ??? If you were prescribed antibiotics, take them as told by your health care provider. Do not stoptaking the antibiotic even if you start to feel better. Lifestyle ??? Do not drink alcohol. ??? Do not use any products that contain nicotine or tobacco. These products include cigarettes, chewing tobacco, and vaping devices, such as e-cigarettes. If you need help quitting, ask your health care provider. ??? Eat a healthy diet. This includes plenty of vegetables, fruits, whole grains, low-fat dairy products, and lean protein. General instructions ??? Rest a lot and get at least 8 hours of sleep each night. ??? Sleep in a partly upright position at night. Place a few pillows under your head or sleep in a reclining chair. ??? Return to your normal activities as told by your health care provider. Ask your health care provider what activities are safe for you. ??? Drink enough fluid to keep your urine pale yellow. This helps to thin the mucus in your lungs. ??? If your throat is sore, gargle with a mixture of salt and water 3?4 times a day or as needed. To make salt water, completely dissolve ??1 tsp (3?6 g) of salt in 1 cup (237 mL) of warm water. ??? Keep all follow-up visits. How is this prevented? You can lower your risk of developing commu (more content not included)...[facility]11-22-2024 Hospital Discharge instructions Follow Up Care 02/14/2024 12:15:02 With:Cheyanne Rosas [facility] [place] [phone]- Business (1) When:Within 3 Day(s) [facility] [id number] Evaluation + Plan noteExtracted from: Title:ED Note Author:Jorge Mcintosh DO Date: Pleurisy (R09.1: Pleurisy) Pneumonia (J18.9: Pneumonia, unspecified organism) Orders: albuterol, 2 puff(s), Inhalation, q6hr for 7 day(s), 6.7 gm, Refill(s) 0, [id number], 160, cm, 02/14/24 12:22:00 EST, Height/Length Dosing, 114.8, kg, 02/14/24 12:22:00 EST, Weight Dosing albuterol-ipratropium, 3 mL, Soln-Inh, Inhalation, Once, Stop date 02/14/24 13:14:00 EST, STAT, Start date 02/14/24 13:14:00 EST azithromycin, 250 mg, Oral, As Directed, Take two tabs by mouth on day one, then one tab daily, # 6 tab(s), Refills(s) 0, [id number], cm, 02/14/24 12:22:00 EST, Height/Length Dosing, 114.8, kg, 02/14/24 12:22:00 EST, Weight Dosing ketorolac, 30 mg = 1 mL, Injection, IV, Once, Stop date 02/14/24 15:36:00 EST, STAT, Start date 02/14/24 15:36:00 EST, 02/14/24 15:36:00 EST predniSONE, 3, Oral, Daily, # 15 tab(s), Refills(s) 0, [id number] 160, cm, 02/14/24 12:22:00 EST, Height/Length Dosing, 114.8, kg, 02/14/24 12:22:00 EST, Weight Dosing Basic Metabolic Panel CBC w/ Auto Diff CTA Chest ED Cardiac Monitoring eGFR Extra SST Tube Hepatic Function Panel Lipase Level Oxygen Saturation Oxygen Therapy PT & PTT Saline Lock Insert Troponin 0 Hr. Troponin 1 Hr. XR Chest 2 Views Future Scheduled Tests Laboratory* TSH With T4fr Reflex 07/17/23 * Urinalysis with Micro 07/17/23 * Lipid Panel 07/17/23 * Drug Screen Urine 07/17/23 Radiology* MA Mamm Screen w/CAD if perf and 3D Kenan 07/17/23 [facility] 11-17-2024 Hospital Discharge instructions* Discharge Instructions* Deepa Reddy MD - 02/09/2024 1:21 PM EST Her wound vac problem and a wound vac was removed. There are no signs of infection or problems withthe wound site. Please follow-up with your surgeon Dr. Woodard for management of your postoperative pain. A prescription for ibuprofen has been sent to your pharmacy. You should take this every 6 hours as needed for pain, and it should be taken with food. Discontinue this medication if you have abdominal pain or nausea/vomiting. Please return to the emergency department if you have increasing pain, difficulty walking, warmth/redness/swelling of the wound site, increased drainage, or new concerns. * Attachments The following attachments cannot be sent through Care Everywhere. * Managing pain after surgery ([place]) [facility] Work Phone: 1(990) 703-623811-17-2024 Emergency department Note* Bianca Persaud RN - 02/09/2024 10:32 AM EST S/p back sx thur on L4L5, states her wound vac is not working. Pt states she noticed it stopped working last night. [facility] Work Phone: [phone]) 819-462811-17-2024 Emergency department Triage note* Bianca Persaud RN - 02/09/2024 10:32 AM EST S/p back sx thur on L4L5, states her wound vac is not working. Pt states she noticed it stopped working last night. [facility] Note* Op Note - Judah Woodard MD - 02/06/2024 3:09 PM EST DISCECTOMY POSTERIOR LUMBAR LEFT L4-5 MINIMALLY INVASIVE (L) Operative Note Date: 02/06/2024 OR Location: [facility] OR Name: Jerad Collins , : 1975, Age: 48 y.o., , Sex: female Diagnosis Pre-op Diagnosis * Lumbar disc herniation with radiculopathy [M51.16] Post-op Diagnosis * Lumbar disc herniation with radiculopathy [M51.16] Procedures DISCECTOMY POSTERIOR LUMBAR LEFT L4-5 MINIMALLY INVASIVE 25402 - [place] LAMNOTMY INCL W/DCMPRSN NRV ROOT 1 INTRSPC LUMBR Surgeons * Judah Ray - Primary Resident/Fellow/Other Wagon Drill Operator: Surgeons and Role: * No surgeons found with a matching role * Staff: Sheet Metal Worker Supervisor: Griffin Escobedo Person: Cheyanne Obstetrician/Gynecologist: Abby Escobedo Person: Merna Anesthesia Staff: Anesthesiologist: Brock Agudelo MD ASSOCIATE MANAGER: Gerardo Peña APRN-ASSOCIATE MANAGER Procedure Summary Anesthesia: Anesthesia type not filed in the log. ASA: ASA status not filed in the log. Estimated Blood Loss: 25 mL Intra-op Medications: Administrations occurring from 1350 to 1635 on 02/06/24: Medication Name Total Dose lidocaine-epinephrine (Xylocaine W/EPI) 1 %-1:100,000 injection 10 mL gelatin sponge,absorb-porcine (Gelfoam) sponge 1 each thrombin-bovine (JMI) 5,000 unit topical solution 10,000 Units ceFAZolin (Ancef) vial 1 g 2 g dexAMETHasone (Decadron) injection 4 mg/mL 8 mg dexMEDETOMidine 4 mcg/mL in NS syringe 20 mcg HYDROmorphone (Dilaudid) injection 2 mg/mL 2 mg ketamine injection 50 mg/ 5 mL (10 mg/mL) 50 mg lactated Ringer's infusion 47.33 mL lidocaine (cardiac) injection 2% prefilled syringe 100 mg lidocaine (LTA Kit) for intubation 4 mL midazolam PF (Versed) injection 1 mg/mL 2 mg propofol (Diprivan) injection 10 mg/mL 500 mg rocuronium (ZeMuron) 50 mg/5 mL injection 80 mg povidone-iodine 5 % kit kit 1 Application 1 Application Anesthesia Record Intraprocedure I/O Totals None Specimen: No specimens collected Findings: see procedure details Indications: Jerad Collins is an 48 y.o. female who is having surgery for Lumbar disc herniation with radiculopathy [M51.16]. The patient was seen in the preoperative area. The risks, benefits, complications, treatment options, non-operative alternatives, expected recovery and outcomes were discussed with the patient. The possibilities of reaction to medication, pulmonary aspiration, injury to surrounding structures, bleeding, recurrent infection, the need for additional procedures, failure to diagnose a condition, and creating a complication requiring transfusion or operation were discussed with the patient. The patient concurred with the proposed plan, giving informed consent. The site of surgery was properly noted/marked if necessary per policy. The patient has been actively warmed in preoperative area. Preopera tive antibiotics have been ordered and given within 1 hours of incision. Venous thrombosis prophylaxis have been ordered including bilateral sequential compression devices Procedure Details: After informed consent was obtained, the patient was brought back to the operating room and generalanesthesia was induced by the anesthesia team. The patient was put in prone position on a Fabricio table with Pradeep frame. The lower back was widely prepped and draped in the usual fashion. Intraoperative fluoroscopy was used to plan and marked an incision 1 cm to the left of midline centered over the L4-5 disc space. Incision was made with 10 blade. Subdermal dissection was done with monopolar cautery. The fascia was coagulated and cut. The APX minimally invasive NTS spine system was used. The a dilator was put on the left L4 hemilamina and progressive dilation was performed and a 20 x 80 mm tube was placed in this area. The dilators were removed. The operative microscope was brought in. The soft tissue coagulated and removed over the left L4 hemilamina and left L4-5 medial facet. Next, a combination of a high-speed matchstick drill, curettes, and Kerrison rongeurs were used to doa left L4 hemilaminotomy and left L4-5 medial facetectomy. Thickened ligamentum flavum was removed there was epidural lipomatosis which was suctioned out and coagulated down. The shoulder of the leftL5 nerve root was clearly identified and retracted medially. The L4-5 disc capsule was coagulated and cut with 11 blade. A series of angled ball, curettes, and micropituitary rongeurs were used to remove multiple free disc fragments. Hemostasis was achieved with Floseal, bipolar cautery, and bone wax. The wound was copiously irrigated with antibiotic saline. The tube was slowly removed and further hemostasis was achieved in the soft tissue with bipolar cautery. Depo-Medrol was placed in the epidural space. The wound was closed in layers with interrupted 0 Vicryl and 2-0 Vicryl sutures. The skin was closed with a running 5-0 Monocryl stitch. The wound was washed, dried and a superficial Prevena wound VAC was placed and connected to suction. The patient was then flipped supine onto her bed and handed over the anesthesia team. She was extubated and taken to the recovery area in stable condition. Complications: None; patient tolerated the procedure well. Disposition: PACU - hemodynamically stable. Condition: stable Attending Attestation: I performed the procedure. Judah Woodard [facility] Work Phone: 1([phone]) 727-431511-14-2024 Miscellaneous Notes* Op Note - Judah Woodard MD - 02/06/2024 3:09 PM EST DISCECTOMY POSTERIOR LUMBAR LEFT L4-5 MINIMALLY INVASIVE (L) Operative Note Date: 02/06/2024 OR Location: [facility] OR Name: Jerad Collins , : 1975, Age: 48 y.o., , Sex: female Diagnosis Pre-op Diagnosis * Lumbar disc herniation with radiculopathy [M51.16] Post-op Diagnosis * Lumbar disc herniation with radiculopathy [M51.16] Procedures DISCECTOMY POSTERIOR LUMBAR LEFT L4-5 MINIMALLY INVASIVE [address] - [place] LAMNOTMY INCL W/DCMPRSN NRV ROOT 1 INTRSPC LUMBR Surgeons * Judah Woodard - Primary Resident/Fellow/Other Wagon Drill Operator: Surgeons and Role: * No surgeons found with a matching role * Staff: Sheet Metal Worker Supervisor: Griffin Solanoub Person: Cheyanne Obstetrician/Gynecologist: Abby Escobedo Person: Merna Anesthesia Staff: Anesthesiologist: Brock Agudelo MD ASSOCIATE MANAGER: Gerardo Peña APRN-ASSOCIATE MANAGER Procedure Summary Anesthesia: Anesthesia type not filed in the log. ASA: ASA status not filed in the log. Estimated Blood Loss: 25 mL Intra-op Medications: Administrations occurring from 1350 to 1635 on 02/06/24: Medication Name Total Dose lidocaine-epinephrine (Xylocaine W/EPI) 1 %-1:100,000 injection 10 mL gelatin sponge,absorb-porcine (Gelfoam) sponge 1 each thrombin-bovine (JMI) 5,000 unit topical solution 10,000 Units ceFAZolin (Ancef) vial 1 g 2 g dexAMETHasone (Decadron) injection 4 mg/mL 8 mg dexMEDETOMidine 4 mcg/mL in NS syringe 20 mcg HYDROmorphone (Dilaudid) injection 2 mg/mL 2 mg ketamine injection 50 mg/ 5 mL (10 mg/mL) 50 mg lactated Ringer's infusion 47.33 mL lidocaine (cardiac) injection 2% prefilled syringe 100 mg lidocaine (LTA Kit) for intubation 4 mL midazolam PF (Versed) injection 1 mg/mL 2 mg propofol (Diprivan) injection 10 mg/mL 500 mg rocuronium (ZeMuron) 50 mg/5 mL injection 80 mg povidone-iodine 5 % kit kit 1 Application 1 Application Anesthesia Record Intraprocedure I/O Totals None Specimen: No specimens collected Findings: see procedure details Indications: Jerad Collins is an 48 y.o. female who is having surgery for Lumbar disc herniation with radiculopathy [M51.16]. The patient was seen in the preoperative area. The risks, benefits, complications, treatment options, non-operative alternatives, expected recovery and outcomes were discussed with the patient. The possibilities of reaction to medication, pulmonary aspiration, injury to surrounding structures, bleeding, recurrent infection, the need for additional procedures, failure to diagnose a condition, and creating a complication requiring transfusion or operation were discussed with the patient. The patient concurred with the proposed plan, giving informed consent. The site of surgery was properly noted/marked if necessary per policy. The patient has been actively warmed in preoperative area. Preopera tive antibiotics have been ordered and given within 1 hours of incision. Venous thrombosis prophylaxis have been ordered including bilateral sequential compression devices Procedure Details: After informed consent was obtained, the patient was brought back to the operating room and generalanesthesia was induced by the anesthesia team. The patient was put in prone position on a Fabricio table with Pradeep frame. The lower back was widely prepped and draped in the usual fashion. Intraoperative fluoroscopy was used to plan and marked an incision 1 cm to the left of midline centered over the L4-5 disc space. Incision was made with 10 blade. Subdermal dissection was done with monopolar cautery. The fascia was coagulated and cut. The APX minimally invasive NTS spine system was used. The a dilator was put on the left L4 hemilamina and progressive dilation was performed and a 20 x 80 mm tube was placed in this area. The dilators were removed. The operative microscope was brought in. The soft tissue coagulated and removed over the left L4 hemilamina and left L4-5 medial facet. Next, a combination of a high-speed matchstick drill, curettes, and Kerrison rongeurs were used to doa left L4 hemilaminotomy and left L4-5 medial facetectomy. Thickened ligamentum flavum was removed there was epidural lipomatosis which was suctioned out and coagulated down. The shoulder of the leftL5 nerve root was clearly identified and retracted medially. The L4-5 disc capsule was coagulated and cut with 11 blade. A series of angled ball, curettes, and micropituitary rongeurs were used to remove multiple free disc fragments. Hemostasis was achieved with Floseal, bipolar cautery, and bone wax. The wound was copiously irrigated with antibiotic saline. The tube was slowly removed and further hemostasis was achieved in the soft tissue with bipolar cautery. Depo-Medrol was placed in the epidural space. The wound was closed in layers with interrupted 0 Vicryl and 2-0 Vicryl sutures. The skin was closed with a running 5-0 Monocryl stitch. The wound was washed, dried and a superficial Prevena wound VAC was placed and connected to suction. The patient was then flipped supine onto her bed and handed over the anesthesia team. She was extubated and taken to the recovery area in stable condition. Complications: None; patient tolerated the procedure well. Disposition: PACU - hemodynamically stable. Condition: stable Attending Attestation: I performed the procedure. Judah Woodard documented in this [facility] Work Phone: [phone] Attending History and physical note* Judah Woodard MD - 02/06/2024 1:50 PM EST H&P reviewed. The patient was examined and there are no changes to the H&P. Source Note - Judah Woodard MD - 01/14/2024 1:00 PM EDT Chief Complaint: Jerad [place] is a 48 y.o. woman here for lumbar disc herniation with radiculopathy HPI Jerad had recent ED visit and hospitalization for worsening low back pain. Has had low back pain for years, significantly worsened in May 2022. 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 Temporarily had spinal cord stimulator placed 09/23/23 which worked well, however this was removed on 10/14/23 with concern for infection - subcutaneous seroma. She presented to ED on 01/04/24 after wakingup with numbness of her left leg and perineal area. Has had multiple ED visits with same symptoms. The pain goes down posterior lateral thigh and down lateral calf mostly with numb, burning feeling. Mri shows lumbar disc herniation as described in the assessment and plan section. She has done physic al therapy at [facility] and continues to do home exercises. She takes oxycodone and NSAIDs as needed. Review of Systems All other systems reviewed and negative other than what is already stated in this note. Past Medical History: Diagnosis Date Anxiety Arthritis Bipolar disorder Chronic pain disorder Depression HCV (hepatitis C virus) 2013 treated and resolved Herniated lumbar intervertebral disc Liver disease stage 3 - stable Neuropathic pain Plan: Thoracic Laminectomy for Spinal Cord Stimulator Leads; Generator Implant 11/21/23 Obesity Vision loss Patient Active Problem List Diagnosis Current smoker Continuous opioid dependence (Multi) Chronic back pain greater than 3 months duration Neuropathic pain Anxiety Depression Obesity Chronic low back pain Postoperative infection, unspecified type, initial encounter Wound dehiscence Acute bilateral low back pain without sciatica Hepatic fibrosis, advanced fibrosis 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 Lumbar radiculopathy Chronic low back pain without sciatica, unspecified back pain laterality Past Surgical History: Procedure Laterality Date ADENOIDECTOMY BUNIONECTOMY Bilateral CHOLECYSTECTOMY COLONOSCOPY DENTAL SURGERY Bilateral all teeth removed, dentures HYSTERECTOMY MYRINGOTOMY W/ TUBES Bilateral SPINAL CORD STIMULATOR IMPLANT 09/23/2023 Percutaneous Thoracic Spinal Cord Stimulator Leads and Generator Placement SPINAL CORD STIMULATOR REMOVAL 10/14/2023 SPINAL CORD STIMULATOR TRIAL W/ LAMINOTOMY 08/21/2023 Percutaneous Thoracic Spinal Cord Stimulator Trial TONSILLECTOMY Family History Problem Relation Name Age of Onset Lung disease Mother COPD Mother Lung disease Father Lung cancer Father Heart disease Father Social History Tobacco Use Smoking status: Every Day Current packs/day: 0.50 Average packs/day: 0.5 packs/day for 32.8 years (16.4 ttl pk-yrs) Types: Cigarettes Start date: 1991 Smokeless tobacco: Never Vaping Use Vaping status: Never Used Substance Use Topics Alcohol use: Never Drug use: Not Currently Comment: last use 2016- heroin Current Outpatient Medications: docusate sodium (Colace) 100 mg capsule, Take 1 capsule (100 mg) by mouth 2 times a day., Disp: 60 capsule, Rfl: 0 FLUoxetine (PROzac) 60 mg tablet, Take 1 tablet (60 mg) by mouth once daily., Disp: 30 tablet, Rfl:6 hydrOXYzine HCL (Atarax) 25 mg tablet, Take 1 tablet (25 mg) by mouth 3 times a day as needed for anxiety., Disp: , Rfl: naloxone (Narcan) 4 mg/0.1 mL nasal spray, Administer 1 spray (4 mg) into affected nostril(s) if needed for opioid reversal. May repeat every 2-3 minutes if needed, alternating nostrils, until medical assistance becomes available., Disp: 2 each, Rfl: 0 omeprazole (PriLOSEC) [address] capsule, Take 2 capsules (40 mg) by mouth once daily. Do not crush or chew., Disp: , Rfl: diphenhydrAMINE (Sominex) 25 mg tablet, Take 1 tablet (25 mg) by mouth every 6 hours for 5 days., Disp: 20 tablet, Rfl: 0 methocarbamol (Robaxin) 500 mg tablet, Take 1 tablet (500 mg) by mouth 3 times a day for 7 days., Disp: 21 tablet, Rfl: 0 oxyCODONE (Roxicodone) 10 mg immediate release tablet, Take 1 tablet (10 mg) by mouth every 4 hoursif needed for severe pain (7 - 10). (Patient not taking: Reported on 01/14/2024), Disp: 10 tablet, Rfl: 0 tiZANidine (Zanaflex) 2 mg capsule, Take 1 capsule (2 mg) by mouth 3 times a day. (Patient not taking: Reported on 01/14/2024), Disp: , Rfl: zolpidem (Ambien) 5 mg tablet, Take 1 tablet (5 mg) by mouth as needed at bedtime for sleep. (Patient not taking: Reported on 01/14/2024), Disp: 10 tablet, Rfl: 0 Objective Vitals: 01/14/24 1338 BP: 141/82 Pulse: 88 Temp: 36.2 C (97.2 F) no acute distress, obese woman appearing her stated age normal sclera moist mucus membranes no peripheral edema symmetric chest rise nondistended abdomen alert and oriented, pupils equal and round, extraocular movements intact, full strength in all extremities, normal sensation to light touch throughout, normal symmetric reflexes, no dysmetria normal mood Assessment/Plan I personally reviewed MRI of the lumbar spine done on 01/10/2024 which shows a left L4-5 paracentral disc herniation with severe left lateral recess stenosis and compression of the left L5 nerve root. I also reviewed upright x-rays of the lumbar spine done on 01/02/2024, which does not show any significant instability/mobile spondylolisthesis. Because of the severity of neural compression and failure of conservative measures, I recommended surgery via a minimally invasive left L4-5 hemilaminotomy and microdiscectomy. I explained the surgery and risks of the surgery including weakness, numbness, csf leak, infection, and spinal instability. I reiterated because of her morbid obesity (BMI = 44.29), she is at markedly higher perioperative risk including postoperative infection and wound dehiscence. Judah Woodard MD [facility] Work Phone: [phone]) 365-768211-14-2024 History and physical note* Judah Woodard MD - 02/06/2024 1:50 PM EST H&P reviewed. The patient was examined and there are no changes to the H&P. Source Note - Judah Woodard MD - 01/14/2024 1:00 PM EDT Chief Complaint: Jerad Tracy is a 48 y.o. woman here for lumbar disc herniation with radiculopathy HPI Jerad had recent ED visit and hospitalization for worsening low back pain. Has had low back pain for years, significantly worsened in May 2022. 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 Temporarily had spinal cord stimulator placed 09/23/23 which worked well, however this was removed on 10/14/23 with concern for infection - subcutaneous seroma. She presented to ED on 01/04/24 after wakingup with numbness of her left leg and perineal area. Has had multiple ED visits with same symptoms. The pain goes down posterior lateral thigh and down lateral calf mostly with numb, burning feeling. Mri shows lumbar disc herniation as described in the assessment and plan section. She has done physic al therapy at [facility] and continues to do home exercises. She takes oxycodone and NSAIDs as needed. Review of Systems All other systems reviewed and negative other than what is already stated in this note. Past Medical History: Diagnosis Date Anxiety Arthritis Bipolar disorder Chronic pain disorder Depression HCV (hepatitis C virus) 2013 treated and resolved Herniated lumbar intervertebral disc Liver disease stage 3 - stable Neuropathic pain Plan: Thoracic Laminectomy for Spinal Cord Stimulator Leads; Generator Implant 11/21/23 Obesity Vision loss Patient Active Problem List Diagnosis Current smoker Continuous opioid dependence (Multi) Chronic back pain greater than 3 months duration Neuropathic pain Anxiety Depression Obesity Chronic low back pain Postoperative infection, unspecified type, initial encounter Wound dehiscence Acute bilateral low back pain without sciatica Hepatic fibrosis, advanced fibrosis 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 Lumbar radiculopathy Chronic low back pain without sciatica, unspecified back pain laterality Past Surgical History: Procedure Laterality Date ADENOIDECTOMY BUNIONECTOMY Bilateral CHOLECYSTECTOMY COLONOSCOPY DENTAL SURGERY Bilateral all teeth removed, dentures HYSTERECTOMY MYRINGOTOMY W/ TUBES Bilateral SPINAL CORD STIMULATOR IMPLANT 09/23/2023 Percutaneous Thoracic Spinal Cord Stimulator Leads and Generator Placement SPINAL CORD STIMULATOR REMOVAL 10/14/2023 SPINAL CORD STIMULATOR TRIAL W/ LAMINOTOMY 08/21/2023 Percutaneous Thoracic Spinal Cord Stimulator Trial TONSILLECTOMY Family History Problem Relation Name Age of Onset Lung disease Mother COPD Mother Lung disease Father Lung cancer Father Heart disease Father Social History Tobacco Use Smoking status: Every Day Current packs/day: 0.50 Average packs/day: 0.5 packs/day for 32.8 years (16.4 ttl pk-yrs) Types: Cigarettes Start date: 1991 Smokeless tobacco: Never Vaping Use Vaping status: Never Used Substance Use Topics Alcohol use: Never Drug use: Not Currently Comment: last use 2016- heroin Current Outpatient Medications: docusate sodium (Colace) 100 mg capsule, Take 1 capsule (100 mg) by mouth 2 times a day., Disp: 60 capsule, Rfl: 0 FLUoxetine (PROzac) 60 mg tablet, Take 1 tablet (60 mg) by mouth once daily., Disp: 30 tablet, Rfl:6 hydrOXYzine HCL (Atarax) 25 mg tablet, Take 1 tablet (25 mg) by mouth 3 times a day as needed for anxiety., Disp: , Rfl: naloxone (Narcan) 4 mg/0.1 mL nasal spray, Administer 1 spray (4 mg) into affected nostril(s) if needed for opioid reversal. May repeat every 2-3 minutes if needed, alternating nostrils, until medical assistance becomes available., Disp: 2 each, Rfl: 0 omeprazole (PriLOSEC) [address] capsule, Take 2 capsules (40 mg) by mouth once daily. Do not crush or chew., Disp: , Rfl: diphenhydrAMINE (Sominex) 25 mg tablet, Take 1 tablet (25 mg) by mouth every 6 hours for 5 days., Disp: 20 tablet, Rfl: 0 methocarbamol (Robaxin) 500 mg tablet, Take 1 tablet (500 mg) by mouth 3 times a day for 7 days., Disp: 21 tablet, Rfl: 0 oxyCODONE (Roxicodone) 10 mg immediate release tablet, Take 1 tablet (10 mg) by mouth every 4 hoursif needed for severe pain (7 - 10). (Patient not taking: Reported on 01/14/2024), Disp: 10 tablet, Rfl: 0 tiZANidine (Zanaflex) 2 mg capsule, Take 1 capsule (2 mg) by mouth 3 times a day. (Patient not taking: Reported on 01/14/2024), Disp: , Rfl: zolpidem (Ambien) 5 mg tablet, Take 1 tablet (5 mg) by mouth as needed at bedtime for sleep. (Patient not taking: Reported on 01/14/2024), Disp: 10 tablet, Rfl: 0 Objective Vitals: 01/14/24 1338 BP: 141/82 Pulse: 88 Temp: 36.2 C (97.2 F) no acute distress, obese woman appearing her stated age normal sclera moist mucus membranes no peripheral edema symmetric chest rise nondistended abdomen alert and oriented, pupils equal and round, extraocular movements intact, full strength in all extremities, normal sensation to light touch throughout, normal symmetric reflexes, no dysmetria normal mood Assessment/Plan I personally reviewed MRI of the lumbar spine done on 01/10/2024 which shows a left L4-5 paracentral disc herniation with severe left lateral recess stenosis and compression of the left L5 nerve root. I also reviewed upright x-rays of the lumbar spine done on 01/02/2024, which does not show any significant instability/mobile spondylolisthesis. Because of the severity of neural compression and failure of conservative measures, I recommended surgery via a minimally invasive left L4-5 hemilaminotomy and microdiscectomy. I explained the surgery and risks of the surgery including weakness, numbness, csf leak, infection, and spinal instability. I reiterated because of her morbid obesity (BMI = 44.29), she is at markedly higher perioperative risk including postoperative infection and wound dehiscence. Judah Woodard MD documented in this [facility] Work Phone: 1(750) 425-202911-14-2024 Hospital Discharge instructions* Discharge Instructions* Elke Sanches, HIM SPECIALIST-LEAD PROGRAMMER - 02/06/2024 1:03 PM EST Spine DC instructions: Don't push, pull, bend, or twist for 2 weeks after your surgery. Don't sit for more than 20 to 30 minutes at a time. Walk as much as you can. You can walk outside or inside. If you use a treadmill, walk at a slow speed, with no incline. Going up and down stairs is also good for you, so do it as much as possible. Don't lift anything heavier than 10 pounds for [address] for 2 to 3 weeks after your surgery. And never drive if you are taking opioids or otherpain medicines that can make you drowsy. Let others drive you instead. Take your medicine exactly as directed by your healthcare provider. Check your incision daily for redness, tenderness, or drainage. Don't soak in a bathtub, hot tub, or pool until your healthcare provider says it's OK. Follow your surgeon's instructions on when you can start showering. This is usually 24 to 48 hours after surgery. Then shower as needed. After showering, gently pat the incision dry. Don't rub it or apply creams or lotions. documented in this [facility] Work Phone: 1(358) 512-426611-12-2024 Hospital Discharge instructions Patient Education 02/04/2024 18:26:07 Acute Back Pain, Adult Acute Back Pain, [...] home: Managing pain, stiffness, and swelling Take yycv-mmw-nygrviw and prescription medicines only as told by [...] each day. Do not sit, drive, or hvac design engineer one place for more than 30 minutes [...] put less stress on your back. Take [id number] and prescription medicines only as told by your health care provider, and apply heat or ice as told. This information is not intended to replace advice given to you by your health care provider. Make sure you discuss any questions you have with your health care provider. Document Revised: 06/02/2021 Document Reviewed: 06/02/2021 [employer] Patient Education 2023 [employer]quisition. Follow Up Care 02/04/2024 16:57:46 With:Cheyanne Rosas Address: [address], [facility] [place] [id number]- Business (1) When:02/07/2024 17:35:32 [facility] [id number] NoteED Patient Education Note Orthopedics Acute Back Pain, Adult Acute back pain is sudden and usually short-lived. It is often caused by an injury to the muscles and tissues in the back. The injury may result from: ??? A muscle, tendon, or ligament getting overstretched or torn. Ligaments are tissues that connectbones to each other. Lifting something improperly can cause a back strain. ??? Wear and tear (degeneration) of the spinal disks. Spinal disks are circular tissue that providecushioning between the bones of the spine (vertebrae). ??? Twisting motions, such as while playing sports or doing yard work. ??? A hit to the back. ??? Arthritis. You may have a physical exam, lab tests, and imaging tests to find the cause of your pain. Acute back pain usually goes away with rest and home care. Follow these instructions at home: Managing pain, stiffness, and swelling ??? Take icnw-xis-rvlthyo and prescription medicines only as told by your health care provider. Treatment may include medicines for pain and inflammation that are taken by mouth or applied to the skin, or muscle relaxants. ??? Your health care provider may recommend applying ice during the first 24?48 hours after your pain starts. To do this: ? Put ice in a plastic bag. ? Place a towel between your skin and the bag. ? Leave the ice on for 20 minutes, 2?3 times a day. ? Remove the ice if your skin turns bright red. This is very important. If you cannot feel pain, heat, or cold, you have a greater risk of damage to the area. ??? If directed, apply heat to the affected area as often as told by your health care provider. Usethe heat source that your health care provider recommends, such as a moist heat pack or a heating pad. ? Place a towel between your skin and the heat source. ? Leave the heat on for 20?30 minutes. ? Remove the heat if your skin turns bright red. This is especially important if you are unable to feel pain, heat, or cold. You have a greater risk of getting burned. Activity ??? Do not stay in bed. Staying in bed for more than 1?2 days can delay your recovery. ??? Sit up and stand up straight. Avoid leaning forward when you sit or hunching over when you stand. ? If you work at a desk, sit close to it so you do not need to lean over. Keep your chin tucked in.Keep your neck drawn back, and keep your elbows bent at a 90-degree angle (right angle). ? Sit high and close to the steering wheel when you drive. Add lower back (lumbar) support to your car seat, if needed. ??? Take short walks on even surfaces as soon as you are able. Try to increase the length of time you walk each day. ??? Do not sit, drive, or hvac design engineer one place for more than 30 minutes at a time. Sitting or standing for long periods of time can put stress on your back. ??? Do not drive or use heavy machinery while taking prescription pain medicine. ??? Use proper lifting techniques. When you bend and lift, use positions that put less stress on your back: ? Bend your knees. ? Keep the load close to your body. ? Avoid twisting. ??? Exercise regularly as told by your health care provider. Exercising helps your back heal fasterand helps prevent back injuries by keeping muscles strong and flexible. ??? Work with a physical therapist to make a safe exercise program, as recommended by your health care provider. Do any exercises as told by your physical therapist. Lifestyle ??? Maintain a healthy weight. Extra weight puts stress on your back and makes it difficult to havegood posture. ??? Avoid activities or situations that make you feel anxious or stressed. Stress and anxiety increase muscle tension and can make back pain worse. Learn ways to manage anxiety and stress, such as through exercise. General instructions ??? Sleep on a firm mattress in a comfortable position. Try lying on your side with your knees slightly bent. If you lie on your back, put a pillow under your knees. ??? Keep your head and neck in a straight line with your spine (neutral position) when using electronic equipment like smartphones or pads. To do this: ? Raise your smartphone or pad to look at it instead of bending your head or neck to look down. ? Put the smartphone or pad at the level of your face while looking at the screen. ??? Follow your treatment plan as told by your health care provider. This may include: ? Cognitive or behavioral therapy. ? Acupuncture or massage therapy. ? Meditation or yoga. Contact a health care provider if: ??? You have pain that is not relieved with rest or medicine. ??? You have increasing pain going down into your legs or buttocks. ??? Your pain does not improve after 2 weeks. ??? You have pain at night. ??? You lose weight without trying. ??? You have a fever or chills. ??? You develop nausea or vomiting. ??? You develop abdominal pain. Get help right away if: ??? You develop new bowel or bladder control problems. ??? Y (more content not included)...[facility]11-12-2024 History and physical note* Dino Melgoza MD - 02/04/2024 3:30 PM EST History Of Present Illness Jerad Collins is a 48 y.o. female presenting for evaluation of her lumbar pain. The pain is located in the lower back area. The pt had a spinal cord stimulator and had to have to removed 21 days due to an infection the pt is having surgery next for a discectomy Here for pain mgt help post surgery Rating her pain at a level of 8 out of 10 describing her left thigh as being numb was tried on Lyrica and that gave her swelling in the lower extremity and gabapentin that triggered for her migraine.Initially on meloxicam with some positive response but she was asked to stop the meloxicam before surgery Scribing her back pain as a sharp sensation. Pain is aggravated by walking and car movements. Past Medical History Past Medical History: Diagnosis Date Anxiety Arthritis Bipolar disorder Chronic pain disorder Depression HCV (hepatitis C virus) 2013 treated and resolved Herniated lumbar intervertebral disc Liver disease stage 3 - stable Lumbar radiculopathy, chronic Neuropathic pain Plan: Thoracic Laminectomy for Spinal Cord Stimulator Leads; Generator Implant 11/21/23 Obesity Vision loss Surgical History Past Surgical History: Procedure Laterality Date ADENOIDECTOMY BUNIONECTOMY Bilateral CHOLECYSTECTOMY COLONOSCOPY DENTAL SURGERY Bilateral all teeth removed, dentures HYSTERECTOMY MYRINGOTOMY W/ TUBES Bilateral SPINAL CORD STIMULATOR IMPLANT 09/23/2023 Percutaneous Thoracic Spinal Cord Stimulator Leads and Generator Placement SPINAL CORD STIMULATOR REMOVAL 10/14/2023 SPINAL CORD STIMULATOR TRIAL W/ LAMINOTOMY 08/21/2023 Percutaneous Thoracic Spinal Cord Stimulator Trial TONSILLECTOMY Social History She reports that she has been smoking cigarettes. She started smoking about 32 years ago. She has a16.4 pack-year smoking history. She has never used smokeless tobacco. She reports that she does notcurrently use drugs. She reports that she does not drink alcohol. Family History Family History Problem Relation Name Age of Onset Lung disease Mother COPD Mother Lung disease Father Lung cancer Father Heart disease Father Allergies Allergies Allergen Reactions Penicillins Hives Reported hives as a child. Prescribed cephalexin September 2023 and reported itching only (no rash/hives). Also reports having taken amoxicillin in the past and tolerated. Gabapentin Headache Tylenol [Acetaminophen] Unknown History of stage III liver fibrosis Nabumetone Nausea/vomiting and Rash Review of Systems 12 Systems have been reviewed as follows. Constitutional: Fever, weight gain, weight loss, appetite change, night sweats, fatigue, chills. Eyes : blurry, double vision, vision, loss, tearing, redness, pain, sensitivity to light, glaucoma. Ears, nose, mouth, and throat: Hearing loss, ringing in the ears, ear pain, nasal congestion, nasaldrainage, nosebleeds, mouth, throat, irritation tooth problem. Cardiovascular :chest pain, pressure, heart tracing,palpaitations , sweating, leg swelling, high orlow blood pressure Pulmonary: Cough, yellow or green sputum, blood and sputum, shortness of breath, wheezing Gastrointestinal: Nause, vomiting, diarrhea, constipation, pain, blood in stool, or vomitus, heartburn, difficulty swallowing Genitourinary: incontinence, abnormal bleeding, abnormal discharge, urinary frequency, urinary hesitancy, pain, impotence sexual problem, infection, urinary retention Musculoskeletal: Pain, stiffness, joint, redness or warmth, arthritis, back pain, weakness, muscle wasting, sprain or fracture Neuro: Weight weakness, dizziness, change in voice, change in taste change in vision, change in hearing, loss, or change of sensation, trouble walking, balance problems coordination problems, shaking, speech problem Endocrine , cold or heat intolerance, blood sugar problem, weight gain or loss missed periods hot flashes, sweats, change in body hair, change in libido, increased thirst, increased urination Heme/lymph: Swelling, bleeding, problem anemia, bruising, enlarged lymph nodes Allergic/immunologic: H. plus nasal drip, watery itchy eyes, nasal drainage, immunosuppressed The above, were reviewed and noted negative except as noted. Physical Exam Vital signs reviewed, documented in chart General: Appears well, does not look in any major distress Alert HEENT: Head atraumatic Eyes normal inspection PERRL Normal ENT inspection No signs of dehydration NECK: Normal inspection Range of motion within normal RESPIRATORY: No respiratory distress CVS: Heart rate and rhythm regular ABDOMEN/GI Soft Non-tender No distention No organomegaly BACK: Normal inspection, flexion and extension within normal limit no tenderness upon the palpation of the facet joint Si joints none tender to palpations EXTREMITIES: Non-Tender Full ROM Normal appearance No Pedal edema Power showing weakness on the left lower extremity with a flexion extension of the ankle flexion extension of the knee, sensory examination preserved. 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 Last Recorded Vitals Blood pressure (!) 164/93, pulse 101, resp. rate 22, height 1.6 m (5' 3 ), weight 113 kg (250 lb), SpO2 98%. MR lumbar spine wo IV contrast Result Date: 01/10/2024 Interpreted By: Bernadette Tapia, STUDY: MR LUMBAR SPINE WO IV CONTRAST; 01/10/2024 8:51 pm INDICATION: Signs/Symptoms:left leg numbness, lower extremity weakness. COMPARISON: MRI of the lumbar spine dated 01/01/2024; 12/18/2023; 10/31/2023;. ACCESSION NUMBER(S): [id number] ORDERING CLINICIAN: GERMAINE BLAIR TECHNIQUE: Sagittal T1, T2, STIR, axial T1 and T2 weighted images of the lumbar spine were acquired. FINDINGS: Exam is somewhat degraded by motion. Lumbar vertebral alignment ismaintained, without evidence of new spondylolisthesis. Lumbar vertebral body heights are preserved,without evidence of new compression fractures. No new signal abnormalities are present in the posterior elements of the lumbar spine. Marrow signal is within normal limits without evidence of new STIR hyperintense edema. There is redemonstration of qkpe-gx-rxnlsegs disc height loss at the level of L4-L5, with intervertebral disc space is preserved at other levels. Lower thoracic spinal cord unremarkable in appearance. Conus medullaris terminates at the level of L1-L2. There is redemonstration of circumferential disc bulge with superimposed left subarticular disc protrusion at the level of L4-L5 which contributes to azgy-cg-uzehskcl spinal canal and mild left-sided neural foraminal narrowing, unchanged in appearance to prior exams. This herniation again likely abuts and effaces the traversing left L4 nerve. No new posterior disc contour abnormality is identified in the lumbar spine. No new spinal canal or neural foraminal stenosis is present in the interim since prior exams. There is ongoing interval improvement in scarring and soft tissue edema in the superficial fat overlying the lumbar spine without evidence of new/acute abnormality within the paraspinal musculature. 1. Unchanged circumferential disc bulge with superimposed left subarticular disc herniation at the level of L4-L5, contributing to dmvn-ag-gcytntwo spinal canal and mild left-sided neural foraminal narrowing and likely abutment/effacement of the traversing left L5 nerve. 2. No new abnormality is identified in the lumbar spine in the interim to recent MRI on 01/01/2024. No new posterior disc contour abnormality or spinal canal stenosis is present. MACRO: None Signed by: Bernadette Tapia 01/10/2024 9:34 PM Dictation workstation: [id number] XR lumbar spine 4+ views w flexion extension Result Date: 01/02/2024 Interpreted By: Danielle Orozco, STUDY: XR LUMBAR SPINE 4+ VIEWS WITH FLEXION EXTENSION; 01/02/2024 8:59 am INDICATION: Signs/Symptoms:L4-L5 lumbar stenosis with concern for spondylolisthesis. COMPARISON: None. ACCESSION NUMBER(S): [id number] ORDERING CLINICIAN: ANGELA GONZALEZ FINDINGS: Multiple views of the lumbar spine are obtained. Alignment is intact. The vertebral body heights are preserved. Disc space loss at L4/L5 with endplate sclerosis and osteophytes . No acute fracture-dislocation. Discogenic degenerative changes as described. Signed by: Danielle Orozco 01/02/2024 9:15 AM Dictationworkstation: [id number] MR lumbar spine w and wo IV contrast Result Date: 01/01/2024 Interpreted By: Claudio Balderas, STUDY: MR LUMBAR SPINE W AND WO IV CONTRAST INDICATION: Signs/Symptoms:Paresthesia and weakness of the left lower extremity COMPARISON: Lumbar spine MRI 12/18/2023 ACCESSION NUMBER(S): [id number] ORDERING CLINICIAN: MICHELE LION TECHNIQUE: Multiplanar multisequence MRI of the lumbar spine was performed before and after the administration of intravenous contrast,according to standard protocol. FINDINGS: ALIGNMENT: The alignment is normal. VERTEBRAE: The vertebral bodies are normal in height. There is no fracture or aggressive osseous lesion. Modic type 2 endplate degenerative change at L4-5. no abnormal enhancement. DISCS: Disc desiccation and mild disc height loss at L4-5. Disc desiccation at L5-S1 with overall preserved height. Remaining discs are maintained. CONUS MEDULLARIS AND CAUDA EQUINA: The conus medullaris terminates at L2. Crowding of the cauda equina nerve roots at L4-5 secondary to degenerative change detailed further below. Remaining cauda equina nerve roots are unremarkable. PARAVERTEBRAL SOFT TISSUES AND VISUALIZED RETROPERITONEUM: The visualized paravertebral soft tissues appear within normal limits. Edema within the midline upper superficial soft tissues of the lower back again noted. No focal fluid collection. No abnormal enhancement. EVALUATION OF INDIVIDUAL LEVELS: L1-2: No disc herniation spinal canal or neuroforaminal stenosis. L2-3: No disc herniation spinal canal or neuroforaminal stenosis. L3- 4: No disc herniation spinal canal or neuroforaminal stenosis. L4-5: Disc bulge with superimposed left paracentral disc protrusion, facet hypertrophy, and infolding of ligamentum flavum results in moderate narrowing of thespinal canal and effacement of left subarticular recess with possible contact of the traversing left L5 nerve root. There is moderate bilateral foraminal stenosis. Canal stenosis appears slightly progressed from previous MRI. L5-S1: Disc bulge asymmetric to the right with facet hypertrophy results in moderate right and mild left foraminal stenosis. Spinal canal remains patent. LIMITED EVALUATION OF UPPER SACRUM AND SACROILIAC JOINTS: Mild degenerative changes of the sacroiliac joints. Moderate canal stenosis at L4-5 secondary to disc bulge with crowding of the cauda equina nerve roots, slightly progressed from previous MRI 12/18/2023. Left paracentral disc protrusion at this levellikely contacts the traversing left L5 nerve root. No abnormal enhancement. Signed by: Claudio Balderas01/01/2024 5:46 PM Dictation workstation: [id number] CT lumbar spine wo IV contrast Result Date: 12/21/2023 Interpreted By: Tomás Hercules, STUDY: CT LUMBAR SPINE WO IV CONTRAST; 12/21/2023 10:01 pm INDICATION: Signs/Symptoms:fell, injured lower back. COMPARISON: MR lumbar spine 12/18/2023 ACCESSION NUMBER(S): [id number] ORDERING CLINICIAN: FRANCISCO J DALEY TECHNIQUE: Axial noncontrast CT images of the lumbar spine with coronal and sagittal reconstructed images. FINDINGS: ALIGNMENT: No traumatic malalignment. VERTEBRAE: No acute loss of vertebral body height. DISC SPACES: Disc space narrowing withvacuum disc phenomena at L4/L5. SPINAL CANAL: Mild facet arthropathy. Posterior disc osteophyte complex at L4/L5 contributes to mild central narrowing and moderate bilateral foraminal narrowing. PREVERTEBRAL SOFT TISSUES: No prevertebral soft tissue swelling. OTHER FINDINGS: None. No acute fracture or traumatic subluxation of the lumbar spine. Lumbar spondylosis most pronounced at L4/L5. MACRO: None. Signed by: Tomás Hercules 12/21/2023 10:40 PM Dictation workstation: [id number] MR lumbar spine w and wo IV contrast Result Date: 12/19/2023 Interpreted By: Bernadette Tapia, and Libby Cabrera STUDY: MR CERVICAL SPINE W AND WO IV CONTRAST; MR THORACIC SPINE W AND WO IV CONTRAST; MR LUMBAR SPINE W AND WO IV CONTRAST; 12/18/2023 8:43 pm INDICATION: Signs/Symptoms:recent spinal cord stimulator complicated by hematoma now with BLE numbness, saddle anesthesia and urinary incontinence. COMPARISON: MRI of the thoracic spine dated 11/08/2023; MRI of the lumbar spine dated 12/06/2023 and 11/13/2023;. ACCESSION NUMBER(S): [id number]; [id number]; [id number] ORDERING CLINICIAN: FATOU TELLEZ TECHNIQUE: Sagittal T1, T2, STIR, axial T1 and axial T2 weighted images were acquired through the cervical, thoracic and lumbar spine. Postcontrast images were obtained of the administration of 20 mL of Dotarem intravenous contrast. FINDINGS: Study is somewhat degraded by motion. CERVICAL SPINE: Alignment: There is 2 mm anterolisthesis of C4 on C5, 2 mm retrolisthesis of C5 on C6 and 3 mm retrolisthesis of C6 on C7. Vertebrae/Intervertebral Discs: The vertebral bodies demonstrate expected height. The marrow signal is within normallimits without evidence of STIR hyperintense edema or T1 hypointense, marrow replacing processes.. Mild multilevel intervertebral disc desiccation is present with moderate intervertebral disc height loss noted at C6-C7. Mild disc height loss is present at C5-C6. Cord: Within limits of motion, no discrete intramedullary cord signal abnormality is identified. No pathologic leptomeningeal or epidural enhancement is present. C1-C2: The cervicomedullary junction appears unremarkable. There is no spinal canal stenosis. C2-C3: There is no posterior disc contour abnormality. There is no significant spinal canal or neural foraminal stenosis. C3-C4: Mild central disc protrusion encroaching the thecalsac without significant spinal canal or neural foraminal stenosis. C4-C5: Bulging disc effaces the anterior subarachnoid space and abuts the ventral cervical spinal cord without spinal canal stenosis. No neural foraminal narrowing is present. C5-C6: Posterior disc bulge with flattening of the thecal sac with mild associated spinal canal narrowing. There is encroachment of the lateral recesses with mild bilateral neural foraminal stenosis. C6-C7: Posterior disc bulge and ligamentum flavum thickening and facet arthropathy results in jjyu-tg-uvosphef spinal canal stenosis. Mild neural foraminal stenosis is present bilaterally. C7-T1: There is no posterior disc contour abnormality. There is no significant spinal canal or neural foraminal stenosis. The prevertebral and posterior paraspinous soft tissues are within normal limits. No STIR hyperintense soft tissue edema is present. THORACIC SPINE: Thoracic vertebral alignment is maintained. Vertebrae/Intervertebral Discs: The vertebral body heights are intact. Marrow signal is within normal limits without evidence of STIR hyperintense edema. The disc spaces are preserved. Cord: Normal in signal. No pathologic leptomeningeal or epidural enhancement is identified, within limits of the exam. Mild spinal canal narrowing appears to be present at the level of T10-T11 due to degenerate facet changes, similar in appearance to prior exam on 11/08/2023. Please refer to previously dictated MRI on 11/08/2023 for level by level detail of the degenerative changes, not significant progressed from prior study. Paraspinal musculature is unremarkable in appearance. LUMBAR SPINE: There are 5 lumbar type non rib-bearing vertebral bodies, with the lowest well-formed intervertebral disc space labeled L5-S1. Lumbar vertebral alignment is maintained without evidence of significant spondylolisthesis. Vertebrae/Intervertebral Discs: The vertebral bodies demonstrate expected height. The marrow signal is within normal limits without evidence of new STIR hyperintense edema or pathologic enhancement within limits of the study. Intervertebral disc desiccation with mild disc height loss is present at L4-L5, similar in appearance to prior exam on 12/06/2023. Conus: The lower thoracic cord appears unremarkable. The conus terminates at L1-L2. No new pathologic leptomeningeal or epidural enhancement is present within limits of the study. T12-L1: There is no significant spinal canal or neural foraminal stenosis. Note is made of a perineural cyst measuring 0.7 cm in the left neural foramina. L1-2: There is no significant spinal canal or neural foraminal stenosis. L2-3: Facet arthropathy and ligamentum flavum thickening without significant spinal canal or neural foraminal stenosis. L3-4: Facet arthropathy and ligamentum flavum thickening withoutsignificant spinal canal foraminal stenosis. L4-5: There is redemonstration of the circumferential disc bulge with superimposed left subarticular/para foraminal disc herniation which effaces the leftsubarticular recess and contributes to mild spinal canal and moderate to severe left-sided neural foraminal stenosis with likely abutment/compression of the exiting left L4 nerve, overall unchanged in appearance to prior study. Mild right-sided neural foraminal stenosis is also similar in appearance to prior exam. L5-S1: Facet arthropathy, ligamentum flavum thickening and posterior disc bulge without significant spinal canal stenosis. There is mild bilateral neural foraminal stenosis STIR hyperintense signal changes with some postcontrast enhancement is again present in the sub cutaneous tissues of the lower back, overlying the posterior elements of L2 through L4, with near-complete interval resolution of T2 hyperintense fluid previously seen on 12/06/2023, now measuring 12 x 3 mm in sizecompared to 18 x 7 mm on previous imaging (series 21, image 28). No new fluid collections are present in the subcutaneous soft tissues. No edema is present in the psoas musculature. 1. Ongoing interval decrease in size of T2 hyperintense fluid collection in the cutaneous tissues of the lower lumbar spine compared to prior exam on 12/06/2023, now measuring up to 3 mm in size compared to 18 x 7 mm on previous imaging. No new fluid collections are present in the cutaneous tissues. Associated STIR hyperintense signal changes with enhancement in the adjacent cutaneous tissues aresimilar to prior exam. 2. Unchanged left subarticular/para foraminal disc herniation at the level of L4-L5 which effaces of the left subarticular recess and contributes to moderate left-sided neural foraminal narrowing with likely abutment/effacement of the exiting left L4 nerve. Additional level by level degenerative changes of the lumbar spine are described above, without evidence of the new spinal canal stenosis. 3. Multilevel degenerative changes of the cervical spine as detailed above, with ohcf-rt-qqsncdvt narrowing present at the level of C6-C7 due to disc osteophyte complex and ligamentum flavum thickening. 4. Mild degenerative changes in the thoracic spine are similar in appearanceto prior exam on 11/08/2023 without evidence of new high-grade stenosis.. I personally reviewed theimages/study and I agree with the findings as stated by resident physician Dr. Rick Nevarez. This study was interpreted at [place], [place]. MACRO: None Signed by: Bernadette Tapia 12/19/2023 2:07 AM Dictation workstation: [id number] MR cervical spine w and wo IV contrast Result Date: 12/19/2023 Interpreted By: Bernadette Tapia, Annika Cabrera STUDY: MR CERVICAL SPINE W AND WO IV CONTRAST; MR THORACIC SPINE W AND WO IV CONTRAST; MR LUMBAR SPINE W AND WO IV CONTRAST; 12/18/2023 8:43 pm INDICATION: Signs/Symptoms:recent spinal cord stimulator complicated by hematoma now with BLE numbness, saddle anesthesia and urinary incontinence. COMPARISON: MRI of the thoracic spine dated 11/08/2023; MRI of the lumbar spine dated 12/06/2023 and 11/13/2023;. ACCESSION NUMBER(S): [id number]; [id number]; [id number] ORDERING CLINICIAN: FATOU TELLEZ TECHNIQUE: Sagittal T1, T2, STIR, axial T1 and axial T2 weighted images were acquired through the cervical, thoracic and lumbar spine. Postcontrast images were obtained of the administration of 20 mL of Dotarem intravenous contrast. FINDINGS: Study is somewhat degraded by motion. CERVICAL SPINE: Alignment: There is 2 mm anterolisthesis of C4 on C5, 2 mm retrolisthesis of C5 on C6 and 3 mm retrolisthesis of C6 on C7. Vertebrae/Intervertebral Discs: The vertebral bodies demonstrate expected height. The marrow signal is within normallimits without evidence of STIR hyperintense edema or T1 hypointense, marrow replacing processes.. Mild multilevel intervertebral disc desiccation is present with moderate intervertebral disc height loss noted at C6-C7. Mild disc height loss is present at C5-C6. Cord: Within limits of motion, no discrete intramedullary cord signal abnormality is identified. No pathologic leptomeningeal or epidural enhancement is present. C1-C2: The cervicomedullary junction appears unremarkable. There is no spinal canal stenosis. C2-C3: There is no posterior disc contour abnormality. There is no significant spinal canal or neural foraminal stenosis. C3-C4: Mild central disc protrusion encroaching the thecalsac without significant spinal canal or neural foraminal stenosis. C4-C5: Bulging disc effaces the anterior subarachnoid space and abuts the ventral cervical spinal cord without spinal canal stenosis. No neural foraminal narrowing is present. C5-C6: Posterior disc bulge with flattening of the thecal sac with mild associated spinal canal narrowing. There is encroachment of the lateral recesses with mild bilateral neural foraminal stenosis. C6-C7: Posterior disc bulge and ligamentum flavum thickening and facet arthropathy results in lbya-vm-hbrusjho spinal canal stenosis. Mild neural foraminal stenosis is present bilaterally. C7-T1: There is no posterior disc contour abnormality. There is no significant spinal canal or neural foraminal stenosis. The prevertebral and posterior paraspinous soft tissues are within normal limits. No STIR hyperintense soft tissue edema is present. THORACIC SPINE: Thoracic vertebral alignment is maintained. Vertebrae/Intervertebral Discs: The vertebral body heights are intact. Marrow signal is within normal limits without evidence of STIR hyperintense edema. The disc spaces are preserved. Cord: Normal in signal. No pathologic leptomeningeal or epidural enhancement is identified, within limits of the exam. Mild spinal canal narrowing appears to be present at the level of T10-T11 due to degenerate facet changes, similar in appearance to prior exam on 11/08/2023. Please refer to previously dictated MRI on 11/08/2023 for level by level detail of the degenerative changes, not significant progressed from prior study. Paraspinal musculature is unremarkable in appearance. LUMBAR SPINE: There are 5 lumbar type non rib-bearing vertebral bodies, with the lowest well-formed intervertebral disc space labeled L5-S1. Lumbar vertebral alignment is maintained without evidence of significant spondylolisthesis. Vertebrae/Intervertebral Discs: The vertebral bodies demonstrate expected height. The marrow signal is within normal limits without evidence of new STIR hyperintense edema or pathologic enhancement within limits of the study. Intervertebral disc desiccation with mild disc height loss is present at L4-L5, similar in appearance to prior exam on 12/06/2023. Conus: The lower thoracic cord appears unremarkable. The conus terminates at L1-L2. No new pathologic leptomeningeal or epidural enhancement is present within limits of the study. T12-L1: There is no significant spinal canal or neural foraminal stenosis. Note is made of a perineural cyst measuring 0.7 cm in the left neural foramina. L1-2: There is no significant spinal canal or neural foraminal stenosis. L2-3: Facet arthropathy and ligamentum flavum thickening without significant spinal canal or neural foraminal stenosis. L3-4: Facet arthropathy and ligamentum flavum thickening withoutsignificant spinal canal foraminal stenosis. L4-5: There is redemonstration of the circumferential disc bulge with superimposed left subarticular/para foraminal disc herniation which effaces the leftsubarticular recess and contributes to mild spinal canal and moderate to severe left-sided neural foraminal stenosis with likely abutment/compression of the exiting left L4 nerve, overall unchanged in appearance to prior study. Mild right-sided neural foraminal stenosis is also similar in appearance to prior exam. L5-S1: Facet arthropathy, ligamentum flavum thickening and posterior disc bulge without significant spinal canal stenosis. There is mild bilateral neural foraminal stenosis STIR hyperintense signal changes with some postcontrast enhancement is again present in the sub cutaneous tissues of the lower back, overlying the posterior elements of L2 through L4, with near-complete interval resolution of T2 hyperintense fluid previously seen on 12/06/2023, now measuring 12 x 3 mm in sizecompared to 18 x 7 mm on previous imaging (series 21, image 28). No new fluid collections are present in the subcutaneous soft tissues. No edema is present in the psoas musculature. 1. Ongoing interval decrease in size of T2 hyperintense fluid collection in the cutaneous tissues of the lower lumbar spine compared to prior exam on 12/06/2023, now measuring up to 3 mm in size compared to 18 x 7 mm on previous imaging. No new fluid collections are present in the cutaneous tissues. Associated STIR hyperintense signal changes with enhancement in the adjacent cutaneous tissues aresimilar to prior exam. 2. Unchanged left subarticular/para foraminal disc herniation at the level of L4-L5 which effaces of the left subarticular recess and contributes to moderate left-sided neural foraminal narrowing with likely abutment/effacement of the exiting left L4 nerve. Additional level by level degenerative changes of the lumbar spine are described above, without evidence of the new spinal canal stenosis. 3. Multilevel degenerative changes of the cervical spine as detailed above, with ngkk-lz-mfymijqn narrowing present at the level of C6-C7 due to disc osteophyte complex and ligamentum flavum thickening. 4. Mild degenerative changes in the thoracic spine are similar in appearanceto prior exam on 11/08/2023 without evidence of new high-grade stenosis.. I personally reviewed theimages/study and I agree with the findings as stated by resident physician Dr. Rick Nevarez. This study was interpreted at [place], [place]. MACRO: None Signed by: Bernadette Tapia 12/19/2023 2:07 AM Dictation workstation: [id number] MR thoracic spine w and wo IV contrast Result Date: 12/19/2023 Interpreted By: Bernadette Tapia, Annika Nevarez [facility] STUDY: MR CERVICAL SPINE W AND WO IV CONTRAST; MR THORACIC SPINE W AND WO IV CONTRAST; MR LUMBAR SPINE W AND WO IV CONTRAST; 12/18/2023 8:43 pm INDICATION: Signs/Symptoms:recent spinal cord stimulator complicated by hematoma now with BLE numbness, saddle anesthesia and urinary incontinence. COMPARISON: MRI of the thoracic spine dated 11/08/2023; MRI of the lumbar spine dated 12/06/2023 and 11/13/2023;. ACCESSION NUMBER(S): [id number]; [id number]; [id number] ORDERING CLINICIAN: FATOU TELLEZ TECHNIQUE: Sagittal T1, T2, STIR, axial T1 and axial T2 weighted images were acquired through the cervical, thoracic and lumbar spine. Postcontrast images were obtained of the administration of 20 mL of Dotarem intravenous contrast. FINDINGS: Study is somewhat degraded by motion. CERVICAL SPINE: Alignment: There is 2 mm anterolisthesis of C4 on C5, 2 mm retrolisthesis of C5 on C6 and 3 mm retrolisthesis of C6 on C7. Vertebrae/Intervertebral Discs: The vertebral bodies demonstrate expected height. The marrow signal is within normallimits without evidence of STIR hyperintense edema or T1 hypointense, marrow replacing processes.. Mild multilevel intervertebral disc desiccation is present with moderate intervertebral disc height loss noted at C6-C7. Mild disc height loss is present at C5-C6. Cord: Within limits of motion, no discrete intramedullary cord signal abnormality is identified. No pathologic leptomeningeal or epidural enhancement is present. C1-C2: The cervicomedullary junction appears unremarkable. There is no spinal canal stenosis. C2-C3: There is no posterior disc contour abnormality. There is no significant spinal canal or neural foraminal stenosis. C3-C4: Mild central disc protrusion encroaching the thecalsac without significant spinal canal or neural foraminal stenosis. C4-C5: Bulging disc effaces the anterior subarachnoid space and abuts the ventral cervical spinal cord without spinal canal stenosis. No neural foraminal narrowing is present. C5-C6: Posterior disc bulge with flattening of the thecal sac with mild associated spinal canal narrowing. There is encroachment of the lateral recesses with mild bilateral neural foraminal stenosis. C6-C7: Posterior disc bulge and ligamentum flavum thickening and facet arthropathy results in igaq-uh-xdncyolb spinal canal stenosis. Mild neural foraminal stenosis is present bilaterally. C7-T1: There is no posterior disc contour abnormality. There is no significant spinal canal or neural foraminal stenosis. The prevertebral and posterior paraspinous soft tissues are within normal limits. No STIR hyperintense soft tissue edema is present. THORACIC SPINE: Thoracic vertebral alignment is maintained. Vertebrae/Intervertebral Discs: The vertebral body heights are intact. Marrow signal is within normal limits without evidence of STIR hyperintense edema. The disc spaces are preserved. Cord: Normal in signal. No pathologic leptomeningeal or epidural enhancement is identified, within limits of the exam. Mild spinal canal narrowing appears to be present at the level of T10-T11 due to degenerate facet changes, similar in appearance to prior exam on 11/08/2023. Please refer to previously dictated MRI on 11/08/2023 for level by level detail of the degenerative changes, not significant progressed from prior study. Paraspinal musculature is unremarkable in appearance. LUMBAR SPINE: There are 5 lumbar type non rib-bearing vertebral bodies, with the lowest well-formed intervertebral disc space labeled L5-S1. Lumbar vertebral alignment is maintained without evidence of significant spondylolisthesis. Vertebrae/Intervertebral Discs: The vertebral bodies demonstrate expected height. The marrow signal is within normal limits without evidence of new STIR hyperintense edema or pathologic enhancement within limits of the study. Intervertebral disc desiccation with mild disc height loss is present at L4-L5, similar in appearance to prior exam on 12/06/2023. Conus: The lower thoracic cord appears unremarkable. The conus terminates at L1-L2. No new pathologic leptomeningeal or epidural enhancement is present within limits of the study. T12-L1: There is no significant spinal canal or neural foraminal stenosis. Note is made of a perineural cyst measuring 0.7 cm in the left neural foramina. L1-2: There is no significant spinal canal or neural foraminal stenosis. L2-3: Facet arthropathy and ligamentum flavum thickening without significant spinal canal or neural foraminal stenosis. L3-4: Facet arthropathy and ligamentum flavum thickening withoutsignificant spinal canal foraminal stenosis. L4-5: There is redemonstration of the circumferential disc bulge with superimposed left subarticular/para foraminal disc herniation which effaces the leftsubarticular recess and contributes to mild spinal canal and moderate to severe left-sided neural foraminal stenosis with likely abutment/compression of the exiting left L4 nerve, overall unchanged in appearance to prior study. Mild right-sided neural foraminal stenosis is also similar in appearance to prior exam. L5-S1: Facet arthropathy, ligamentum flavum thickening and posterior disc bulge without significant spinal canal stenosis. There is mild bilateral neural foraminal stenosis STIR hyperintense signal changes with some postcontrast enhancement is again present in the sub cutaneous tissues of the lower back, overlying the posterior elements of L2 through L4, with near-complete interval resolution of T2 hyperintense fluid previously seen on 12/06/2023, now measuring 12 x 3 mm in sizecompared to 18 x 7 mm on previous imaging (series 21, image 28). No new fluid collections are present in the subcutaneous soft tissues. No edema is present in the psoas musculature. 1. Ongoing interval decrease in size of T2 hyperintense fluid collection in the cutaneous tissues of the lower lumbar spine compared to prior exam on 12/06/2023, now measuring up to 3 mm in size compared to 18 x 7 mm on previous imaging. No new fluid collections are present in the cutaneous tissues. Associated STIR hyperintense signal changes with enhancement in the adjacent cutaneous tissues aresimilar to prior exam. 2. Unchanged left subarticular/para foraminal disc herniation at the level of L4-L5 which effaces of the left subarticular recess and contributes to moderate left-sided neural foraminal narrowing with likely abutment/effacement of the exiting left L4 nerve. Additional level by level degenerative changes of the lumbar spine are described above, without evidence of the new spinal canal stenosis. 3. Multilevel degenerative changes of the cervical spine as detailed above, with amqc-td-ifthlpay narrowing present at the level of C6-C7 due to disc osteophyte complex and ligamentum flavum thickening. 4. Mild degenerative changes in the thoracic spine are similar in appearanceto prior exam on 11/08/2023 without evidence of new high-grade stenosis.. I personally reviewed theimages/study and I agree with the findings as stated by resident physician Dr. Rick Nevarez. This study was interpreted at [place], [place]. MACRO: None Signed by: Bernadette Tapia 12/19/2023 2:07 AM Dictation workstation: [id number] CT lumbar spine w IV contrast Result Date: 12/15/2023 Interpreted By: Allyson Schultz, STUDY: CT ABDOMEN PELVIS W IV CONTRAST; CT LUMBAR SPINE W IV CONTRAST; 12/15/2023 7:50 pm INDICATION: Signs/Symptoms:h/o spinal stim c/b infections with wound vac inplace, pain to surrounding areas radiating to flanks. COMPARISON: 12/07/2023 CT abdomen/pelvis ACCESSION NUMBER(S): [id number]; [id number] ORDERING CLINICIAN: PABLO GERONIMO TECHNIQUE: Contiguous axial images of the abdomen and pelvis were obtained after the intravenous administration of iodinated contrast. Coronal and sagittal reformatted images were reconstructed from the axial data. Multiplanar reformatted images of the lumbar spine were obtained. FINDINGS: CT LUMBAR SPINE: ALIGNMENT:No traumatic spondylolisthesis or traumatic facet widening. VERTEBRAE: No acute fracture. Vertebralbody heights are maintained. SPINAL CANAL/INTERVERTEBRAL DISCS/NEURAL FORAMINA: [...] acute retroperitoneal abnormality. No enlarged lymph nodes. BOWEL/MESENTERY/PERITONEUM: No inflammatory bowel wall thickening or dilatation. Normal appendix. No ascites, free air, or fluid collection. MUSCULOSKELETAL: No acute osseous abnormality. No suspicious osseous lesion. Wound VAC overlying a soft tissue ulceration in the midline of the back. At the base of the ulcer there is skin thickening and mild subjacent fat stranding. The degree of skin thickening is slightly increased in thickness and extent. There is no underlying fluid collection. No evidence of paraspinal infection or discitis osteomyelitis. Degenerative changes of lumbar spine as described above, mostadvanced at L4-5 and L5-S1 at which there could be impingement of the descending left L5 nerve rootat L4-L5 and intraforaminal right L5 nerve root at L5-S1. MACRO: None. Signed by: Allyson Schultz 12/15/2023 8:37 PM Dictation workstation: [id number] CT lumbar spine wo IV contrast Result Date: 12/07/2023 STUDY: CT Abdomen and Pelvis with IV Contrast; CT Lumbar Spine Without IV Contrast; 12/07/2023 at 6:06 PM INDICATION: Left sided abdominal pain and guarding. Recent post op fluid collection on lumbar spine MRI. Evaluate for diverticulitis. COMPARISON: CT lumbar spine 12/07/2023, MRI lumbar spine 2023, CT lumbar spine 11/13/2023, CT lumbar spine , XR abdomen 10/31/2023. ACCESSION NUMBER(S): [id number], [id number] ORDERING CLINICIAN: DOUG ALFONSO TECHNIQUE: CT of the abdomen and pelvis was performed. Contiguous axial images were obtained at 3 mm slice thickness through the abdom en and pelvis. Coronal and sagittal reconstructions at [...] BOWEL: No abnormalities identified. Appendix is normal. VESSELS:No abnormalities identified. Abdominal aorta is normal in caliber. PERITONEUM/RETROPERITONEUM/LYMPHNODES: No free fluid. No pneumoperitoneum. No lymphadenopathy. [...] normal limits. The visualized abdomen is unremarkable. 1. No acute process. 2. Again noted is some subcutaneous edema posterior to the midline lumbar spine overall stable in appearance compared to prior exam. No underlying fluid collection or abscess. 3.The hyperdensity in the anterior aspect of the spinal canal at L4-5 seen on prior exam is less wellvisualized on the current study. 4. Hepatic steatosis. Signed by Taj Chandler MD MR lumbar spine w and wo IV contrast Result Date: 12/07/2023 Interpreted By: Oscar Sabillon and Barbat Antonio STUDY: MR LUMBAR SPINE W AND WO IV CONTRAST; 12/06/2023 9:50 pm INDICATION: Signs/Symptoms:post op wound complication. COMPARISON: MR lumbar spine 11/13/2023. ACCESSION NUMBER(S): [id number] ORDERING CLINICIAN: MARQUIS CALDERÓN TECHNIQUE: SagittalT1, T2, STIR, axial T1 and T2 weighted images of the lumbar spine were acquired. Postcontrast T1 images were obtained after the administration of 20 mL of intravenous Dotarem. FINDINGS: This report assumes 5 non-rib bearing lumbar vertebral bodies. The lowest intervertebral disc will be labeled L5-S1. Alignment: Mild degenerative retrolisthesis of L4 on L5. The vertebral alignment is otherwise maintained. Vertebrae/Intervertebral Discs: The vertebral bodies demonstrate expected height. [...] sac, without significant central canal stenosis. No significantneural foraminal stenosis. L3-4: Mild disc bulge. Moderate facet arthropathy and epidural dorsal fat without significant canal or foraminal stenosis. L4-5: Disc bulge with superimposed left subarticular disc protrusion. Prominent ventral epidural fat. Moderate ligamentum flavum hypertrophy. Moderate bilateral facet arthropathy. This results in moderate central canal stenosis and moderate to severe left subarticular stenosis, similar to prior. Okvl-ly-tibcoael zkspb-qbzcady-cmwc-left neural foraminal stenosis. L5-S1: Small disc bulge [...] multiple foci of susceptibility artifact, likely representing air.The foci of gas extent to the dorsal midline skin surface at the level of L2-L3 suggestive of a surgical wound or sinus tract. No direct evidence of a formed/loculated fluid collection. 1. Previously described focal fluid collection of the level of L3 has almost completely resolved with residual thick rim enhancing fluid collection measuring 1.3 x 0.8 x 0.9 cm, possibly representinggranulation tissue. There is however, enhancement/edema of the skin overlying the paraspinal soft tissues from the levels of L1 through L3. Deep to this area, there is ill-defined edema and enhancement extending within the deep subcutaneous fat extending to the superficial fascia. There are foci ofgas extending from the midline dorsal fat to the skin surface at the level of L2-L3, which may represent a surgical wound versus sinus tract. These findings may represent cellulitis versus recent post surgical change with granulation tissue. Clinical correlation recommended. 2. Stable degenerative changes, as described above. I personally reviewed the images/study and I agree with the findings as stated by Sesar Suarez MD. This study was interpreted at [place], [place] MACRO: None Signed by: Oscar Sabillon 12/07/2023 1:30 AM Dictation workstation: [id number] CT lumbar spine w IV contrast Result Date: 12/04/2023 12/04/2023 10:42 PM TECHNIQUE: CT SPINE [...] consider dedicated adrenal imaging. Keke Beebe D.O.Workstation ID:[id number] MR lumbar spine w and wo IV contrast Result Date: 11/14/2023 Interpreted By: Oscar Sabillon, and Kenji Herr STUDY: MR LUMBAR SPINE W AND WO IV CONTRAST; 11/13/2023 8:10 pm INDICATION: Signs/Symptoms:r/o abscess. COMPARISON: MRI lumbar spine 10/31/2023 ACCESSION NUMBER(S): [id number] ORDERING CLINICIAN: CRISTOBAL GARIBAY TECHNIQUE: Sagittal T1, T2, STIR, axial T1 and T2 weighted images of the lumbar spine were acquired. Postcontrast imaging was obtained after the administration of 20 mL Dotarem. FINDINGS: There are 5 lumbar-type vertebral bodies, the last well-formed disc space is labeled L5-S1. Alignment: The vertebral alignment is maintained. Vertebrae/Intervertebral Discs: The vertebral bodies demonstrate expected height. Similar appearanceof degenerative disc space narrowing at L4-L5 with type 2 endplate Modic change. Disc desiccation at L5-S1. Conus Medullaris: The lower thoracic cord appears unremarkable. The conus terminates at L1-L2. The cauda equina is unremarkable. T12-L1: Stable nonenhancing perineural sleeve cyst in the leftneural foramen causing mild left foraminal stenosis. No [...] similar to prior. There is also similar szoh-wh-vqdukded right greater than left foraminal stenosis due to disc material and facet hypertrophy. L5-S1: Disc bulge and facet arthropathycontributes to mild right foraminal stenosis. No significant central canal or left foraminal stenosis. Interval decrease in size of a fluid-filled collection within the posterior soft tissues to the left of midline at the L3 level which currently measures 1.8 x 2.2 x 2.0 Cm, previously measuring 2.3 x 3.0 x 2.4 cm. There is surrounding enhancement similar to mildly improved compared to prior exami nation. 1. Interval decrease in size of fluid collection within the posterior subcutaneous tissues to the left of midline at (more content not included)... [facility] Work Phone: [phone] 164-397911-12-2024 History and physical note* Dino Melgoza MD - 02/04/2024 3:30 PM EST History Of Present Illness Jerad Collins is a 48 y.o. female presenting for evaluation of her lumbar pain. The pain is located in the lower back area. The pt had a spinal cord stimulator and had to have to removed 21 days due to an infection the pt is having surgery next for a discectomy Here for pain mgt help post surgery Rating her pain at a level of 8 out of 10 describing her left thigh as being numb was tried on Lyrica and that gave her swelling in the lower extremity and gabapentin that triggered for her migraine.Initially on meloxicam with some positive response but she was asked to stop the meloxicam before surgery Scribing her back pain as a sharp sensation. Pain is aggravated by walking and car movements. Past Medical History Past Medical History: Diagnosis Date Anxiety Arthritis Bipolar disorder Chronic pain disorder Depression HCV (hepatitis C virus) 2013 treated and resolved Herniated lumbar intervertebral disc Liver disease stage 3 - stable Lumbar radiculopathy, chronic Neuropathic pain Plan: Thoracic Laminectomy for Spinal Cord Stimulator Leads; Generator Implant 11/21/23 Obesity Vision loss Surgical History Past Surgical History: Procedure Laterality Date ADENOIDECTOMY BUNIONECTOMY Bilateral CHOLECYSTECTOMY COLONOSCOPY DENTAL SURGERY Bilateral all teeth removed, dentures HYSTERECTOMY MYRINGOTOMY W/ TUBES Bilateral SPINAL CORD STIMULATOR IMPLANT 09/23/2023 Percutaneous Thoracic Spinal Cord Stimulator Leads and Generator Placement SPINAL CORD STIMULATOR REMOVAL 10/14/2023 SPINAL CORD STIMULATOR TRIAL W/ LAMINOTOMY 08/21/2023 Percutaneous Thoracic Spinal Cord Stimulator Trial TONSILLECTOMY Social History She reports that she has been smoking cigarettes. She started smoking about 32 years ago. She has a16.4 pack-year smoking history. She has never used smokeless tobacco. She reports that she does notcurrently use drugs. She reports that she does not drink alcohol. Family History Family History Problem Relation Name Age of Onset Lung disease Mother COPD Mother Lung disease Father Lung cancer Father Heart disease Father Allergies Allergies Allergen Reactions Penicillins Hives Reported hives as a child. Prescribed cephalexin September 2023 and reported itching only (no rash/hives). Also reports having taken amoxicillin in the past and tolerated. Gabapentin Headache Tylenol [Acetaminophen] Unknown History of stage III liver fibrosis Nabumetone Nausea/vomiting and Rash Review of Systems 12 Systems have been reviewed as follows. Constitutional: Fever, weight gain, weight loss, appetite change, night sweats, fatigue, chills. Eyes : blurry, double vision, vision, loss, tearing, redness, pain, sensitivity to light, glaucoma. Ears, nose, mouth, and throat: Hearing loss, ringing in the ears, ear pain, nasal congestion, nasaldrainage, nosebleeds, mouth, throat, irritation tooth problem. Cardiovascular :chest pain, pressure, heart tracing,palpaitations , sweating, leg swelling, high orlow blood pressure Pulmonary: Cough, yellow or green sputum, blood and sputum, shortness of breath, wheezing Gastrointestinal: Nause, vomiting, diarrhea, constipation, pain, blood in stool, or vomitus, heartburn, difficulty swallowing Genitourinary: incontinence, abnormal bleeding, abnormal discharge, urinary frequency, urinary hesitancy, pain, impotence sexual problem, infection, urinary retention Musculoskeletal: Pain, stiffness, joint, redness or warmth, arthritis, back pain, weakness, muscle wasting, sprain or fracture Neuro: Weight weakness, dizziness, change in voice, change in taste change in vision, change in hearing, loss, or change of sensation, trouble walking, balance problems coordination problems, shaking, speech problem Endocrine , cold or heat intolerance, blood sugar problem, weight gain or loss missed periods hot flashes, sweats, change in body hair, change in libido, increased thirst, increased urination Heme/lymph: Swelling, bleeding, problem anemia, bruising, enlarged lymph nodes Allergic/immunologic: H. plus nasal drip, watery itchy eyes, nasal drainage, immunosuppressed The above, were reviewed and noted negative except as noted. Physical Exam Vital signs reviewed, documented in chart General: Appears well, does not look in any major distress Alert HEENT: Head atraumatic Eyes normal inspection PERRL Normal ENT inspection No signs of dehydration NECK: Normal inspection Range of motion within normal RESPIRATORY: No respiratory distress CVS: Heart rate and rhythm regular ABDOMEN/GI Soft Non-tender No distention No organomegaly BACK: Normal inspection, flexion and extension within normal limit no tenderness upon the palpation of the facet joint Si joints none tender to palpations EXTREMITIES: Non-Tender Full ROM Normal appearance No Pedal edema Power showing weakness on the left lower extremity with a flexion extension of the ankle flexion extension of the knee, sensory examination preserved. 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 Last Recorded Vitals Blood pressure (!) 164/93, pulse 101, resp. rate 22, height 1.6 m (5' 3 ), weight 113 kg (250 lb), SpO2 98%. MR lumbar spine wo IV contrast Result Date: 01/10/2024 Interpreted By: Bernadette Tapia, STUDY: MR LUMBAR SPINE WO IV CONTRAST; 01/10/2024 8:51 pm INDICATION: Signs/Symptoms:left leg numbness, lower extremity weakness. COMPARISON: MRI of the lumbar spine dated 01/01/2024; 12/18/2023; 10/31/2023;. ACCESSION NUMBER(S): [id number] ORDERING CLINICIAN: GERMAINE BLAIR TECHNIQUE: Sagittal T1, T2, STIR, axial T1 and T2 weighted images of the lumbar spine were acquired. FINDINGS: Exam is somewhat degraded by motion. Lumbar vertebral alignment ismaintained, without evidence of new spondylolisthesis. Lumbar vertebral body heights are preserved,without evidence of new compression fractures. No new signal abnormalities are present in the posterior elements of the lumbar spine. Marrow signal is within normal limits without evidence of new STIR hyperintense edema. There is redemonstration of lwzv-pk-apucmoss disc height loss at the level of L4-L5, with intervertebral disc space is preserved at other levels. Lower thoracic spinal cord unremarkable in appearance. Conus medullaris terminates at the level of L1-L2. There is redemonstration of circumferential disc bulge with superimposed left subarticular disc protrusion at the level of L4-L5 which contributes to ckbt-ql-atlopjqy spinal canal and mild left-sided neural foraminal narrowing, unchanged in appearance to prior exams. This herniation again likely abuts and effaces the traversing left L4 nerve. No new posterior disc contour abnormality is identified in the lumbar spine. No new spinal canal or neural foraminal stenosis is present in the interim since prior exams. There is ongoing interval improvement in scarring and soft tissue edema in the superficial fat overlying the lumbar spine without evidence of new/acute abnormality within the paraspinal musculature. 1. Unchanged circumferential disc bulge with superimposed left subarticular disc herniation at the level of L4-L5, contributing to ebjc-yn-plteonxm spinal canal and mild left-sided neural foraminal narrowing and likely abutment/effacement of the traversing left L5 nerve. 2. No new abnormality is identified in the lumbar spine in the interim to recent MRI on 01/01/2024. No new posterior disc contour abnormality or spinal canal stenosis is present. MACRO: None Signed by: Bernadette Tapia 01/10/2024 9:34 PM Dictation workstation: [id number] XR lumbar spine 4+ views w flexion extension Result Date: 01/02/2024 Interpreted By: Danielle Orozco, STUDY: XR LUMBAR SPINE 4+ VIEWS WITH FLEXION EXTENSION; 01/02/2024 8:59 am INDICATION: Signs/Symptoms:L4-L5 lumbar stenosis with concern for spondylolisthesis. COMPARISON: None. ACCESSION NUMBER(S): [id number] ORDERING CLINICIAN: ANGELA GONZALEZ FINDINGS: Multiple views of the lumbar spine are obtained. Alignment is intact. The vertebral body heights are preserved. Disc space loss at L4/L5 with endplate sclerosis and osteophytes . No acute fracture-dislocation. Discogenic degenerative changes as described. Signed by: Danielle Orozco 01/02/2024 9:15 AM Dictationworkstation: [id number] MR lumbar spine w and wo IV contrast Result Date: 01/01/2024 Interpreted By: Claudio Balderas, STUDY: MR LUMBAR SPINE W AND WO IV CONTRAST INDICATION: Signs/Symptoms:Paresthesia and weakness of the left lower extremity COMPARISON: Lumbar spine MRI 12/18/2023 ACCESSION NUMBER(S): [id number] ORDERING CLINICIAN: MICHELE LION TECHNIQUE: Multiplanar multisequence MRI of the lumbar spine was performed before and after the administration of intravenous contrast,according to standard protocol. FINDINGS: ALIGNMENT: The alignment is normal. VERTEBRAE: The vertebral bodies are normal in height. There is no fracture or aggressive osseous lesion. Modic type 2 endplate degenerative change at L4-5. no abnormal enhancement. DISCS: Disc desiccation and mild disc height loss at L4-5. Disc desiccation at L5-S1 with overall preserved height. Remaining discs are maintained. CONUS MEDULLARIS AND CAUDA EQUINA: The conus medullaris terminates at L2. Crowding of the cauda equina nerve roots at L4-5 secondary to degenerative change detailed further below. Remaining cauda equina nerve roots are unremarkable. PARAVERTEBRAL SOFT TISSUES AND VISUALIZED RETROPERITONEUM: The visualized paravertebral soft tissues appear within normal limits. Edema within the midline upper superficial soft tissues of the lower back again noted. No focal fluid collection. No abnormal enhancement. EVALUATION OF INDIVIDUAL LEVELS: L1-2: No disc herniation spinal canal or neuroforaminal stenosis. L2-3: No disc herniation spinal canal or neuroforaminal stenosis. L3- 4: No disc herniation spinal canal or neuroforaminal stenosis. L4-5: Disc bulge with superimposed left paracentral disc protrusion, facet hypertrophy, and infolding of ligamentum flavum results in moderate narrowing of thespinal canal and effacement of left subarticular recess with possible contact of the traversing left L5 nerve root. There is moderate bilateral foraminal stenosis. Canal stenosis appears slightly progressed from previous MRI. L5-S1: Disc bulge asymmetric to the right with facet hypertrophy results in moderate right and mild left foraminal stenosis. Spinal canal remains patent. LIMITED EVALUATION OF UPPER SACRUM AND SACROILIAC JOINTS: Mild degenerative changes of the sacroiliac joints. Moderate canal stenosis at L4-5 secondary to disc bulge with crowding of the cauda equina nerve roots, slightly progressed from previous MRI 12/18/2023. Left paracentral disc protrusion at this levellikely contacts the traversing left L5 nerve root. No abnormal enhancement. Signed by: Claudio Balderas01/01/2024 5:46 PM Dictation workstation: [id number] CT lumbar spine wo IV contrast Result Date: 12/21/2023 Interpreted By: Tomás Hercules, STUDY: CT LUMBAR SPINE WO IV CONTRAST; 12/21/2023 10:01 pm INDICATION: Signs/Symptoms:fell, injured lower back. COMPARISON: MR lumbar spine 12/18/2023 ACCESSION NUMBER(S): [id number] ORDERING CLINICIAN: FRANCISCO J DALEY TECHNIQUE: Axial noncontrast CT images of the lumbar spine with coronal and sagittal reconstructed images. FINDINGS: ALIGNMENT: No traumatic malalignment. VERTEBRAE: No acute loss of vertebral body height. DISC SPACES: Disc space narrowing withvacuum disc phenomena at L4/L5. SPINAL CANAL: Mild facet arthropathy. Posterior disc osteophyte complex at L4/L5 contributes to mild central narrowing and moderate bilateral foraminal narrowing. PREVERTEBRAL SOFT TISSUES: No prevertebral soft tissue swelling. OTHER FINDINGS: None. No acute fracture or traumatic subluxation of the lumbar spine. Lumbar spondylosis most pronounced at L4/L5. MACRO: None. Signed by: Tomás Hercules 12/21/2023 10:40 PM Dictation workstation: [id number] MR lumbar spine w and wo IV contrast Result Date: 12/19/2023 Interpreted By: Bernadette Tapia, and Libby Cabrera STUDY: MR CERVICAL SPINE W AND WO IV CONTRAST; MR THORACIC SPINE W AND WO IV CONTRAST; MR LUMBAR SPINE W AND WO IV CONTRAST; 12/18/2023 8:43 pm INDICATION: Signs/Symptoms:recent spinal cord stimulator complicated by hematoma now with BLE numbness, saddle anesthesia and urinary incontinence. COMPARISON: MRI of the thoracic spine dated 11/08/2023; MRI of the lumbar spine dated 12/06/2023 and 11/13/2023;. ACCESSION NUMBER(S): [id number]; [id number]; [id number] ORDERING CLINICIAN: FATOU TELLEZ TECHNIQUE: Sagittal T1, T2, STIR, axial T1 and axial T2 weighted images were acquired through the cervical, thoracic and lumbar spine. Postcontrast images were obtained of the administration of 20 mL of Dotarem intravenous contrast. FINDINGS: Study is somewhat degraded by motion. CERVICAL SPINE: Alignment: There is 2 mm anterolisthesis of C4 on C5, 2 mm retrolisthesis of C5 on C6 and 3 mm retrolisthesis of C6 on C7. Vertebrae/Intervertebral Discs: The vertebral bodies demonstrate expected height. The marrow signal is within normallimits without evidence of STIR hyperintense edema or T1 hypointense, marrow replacing processes.. Mild multilevel intervertebral disc desiccation is present with moderate intervertebral disc height loss noted at C6-C7. Mild disc height loss is present at C5-C6. Cord: Within limits of motion, no discrete intramedullary cord signal abnormality is identified. No pathologic leptomeningeal or epidural enhancement is present. C1-C2: The cervicomedullary junction appears unremarkable. There is no spinal canal stenosis. C2-C3: There is no posterior disc contour abnormality. There is no significant spinal canal or neural foraminal stenosis. C3-C4: Mild central disc protrusion encroaching the thecalsac without significant spinal canal or neural foraminal stenosis. C4-C5: Bulging disc effaces the anterior subarachnoid space and abuts the ventral cervical spinal cord without spinal canal stenosis. No neural foraminal narrowing is present. C5-C6: Posterior disc bulge with flattening of the thecal sac with mild associated spinal canal narrowing. There is encroachment of the lateral recesses with mild bilateral neural foraminal stenosis. C6-C7: Posterior disc bulge and ligamentum flavum thickening and facet arthropathy results in wlvu-pl-lbfkkjka spinal canal stenosis. Mild neural foraminal stenosis is present bilaterally. C7-T1: There is no posterior disc contour abnormality. There is no significant spinal canal or neural foraminal stenosis. The prevertebral and posterior paraspinous soft tissues are within normal limits. No STIR hyperintense soft tissue edema is present. THORACIC SPINE: Thoracic vertebral alignment is maintained. Vertebrae/Intervertebral Discs: The vertebral body heights are intact. Marrow signal is within normal limits without evidence of STIR hyperintense edema. The disc spaces are preserved. Cord: Normal in signal. No pathologic leptomeningeal or epidural enhancement is identified, within limits of the exam. Mild spinal canal narrowing appears to be present at the level of T10-T11 due to degenerate facet changes, similar in appearance to prior exam on 11/08/2023. Please refer to previously dictated MRI on 11/08/2023 for level by level detail of the degenerative changes, not significant progressed from prior study. Paraspinal musculature is unremarkable in appearance. LUMBAR SPINE: There are 5 lumbar type non rib-bearing vertebral bodies, with the lowest well-formed intervertebral disc space labeled L5-S1. Lumbar vertebral alignment is maintained without evidence of significant spondylolisthesis. Vertebrae/Intervertebral Discs: The vertebral bodies demonstrate expected height. The marrow signal is within normal limits without evidence of new STIR hyperintense edema or pathologic enhancement within limits of the study. Intervertebral disc desiccation with mild disc height loss is present at L4-L5, similar in appearance to prior exam on 12/06/2023. Conus: The lower thoracic cord appears unremarkable. The conus terminates at L1-L2. No new pathologic leptomeningeal or epidural enhancement is present within limits of the study. T12-L1: There is no significant spinal canal or neural foraminal stenosis. Note is made of a perineural cyst measuring 0.7 cm in the left neural foramina. L1-2: There is no significant spinal canal or neural foraminal stenosis. L2-3: Facet arthropathy and ligamentum flavum thickening without significant spinal canal or neural foraminal stenosis. L3-4: Facet arthropathy and ligamentum flavum thickening withoutsignificant spinal canal foraminal stenosis. L4-5: There is redemonstration of the circumferential disc bulge with superimposed left subarticular/para foraminal disc herniation which effaces the leftsubarticular recess and contributes to mild spinal canal and moderate to severe left-sided neural foraminal stenosis with likely abutment/compression of the exiting left L4 nerve, overall unchanged in appearance to prior study. Mild right-sided neural foraminal stenosis is also similar in appearance to prior exam. L5-S1: Facet arthropathy, ligamentum flavum thickening and posterior disc bulge without significant spinal canal stenosis. There is mild bilateral neural foraminal stenosis STIR hyperintense signal changes with some postcontrast enhancement is again present in the sub cutaneous tissues of the lower back, overlying the posterior elements of L2 through L4, with near-complete interval resolution of T2 hyperintense fluid previously seen on 12/06/2023, now measuring 12 x 3 mm in sizecompared to 18 x 7 mm on previous imaging (series 21, image 28). No new fluid collections are present in the subcutaneous soft tissues. No edema is present in the psoas musculature. 1. Ongoing interval decrease in size of T2 hyperintense fluid collection in the cutaneous tissues of the lower lumbar spine compared to prior exam on 12/06/2023, now measuring up to 3 mm in size compared to 18 x 7 mm on previous imaging. No new fluid collections are present in the cutaneous tissues. Associated STIR hyperintense signal changes with enhancement in the adjacent cutaneous tissues aresimilar to prior exam. 2. Unchanged left subarticular/para foraminal disc herniation at the level of L4-L5 which effaces of the left subarticular recess and contributes to moderate left-sided neural foraminal narrowing with likely abutment/effacement of the exiting left L4 nerve. Additional level by level degenerative changes of the lumbar spine are described above, without evidence of the new spinal canal stenosis. 3. Multilevel degenerative changes of the cervical spine as detailed above, with jwpu-sl-jubdibvc narrowing present at the level of C6-C7 due to disc osteophyte complex and ligamentum flavum thickening. 4. Mild degenerative changes in the thoracic spine are similar in appearanceto prior exam on 11/08/2023 without evidence of new high-grade stenosis.. I personally reviewed theimages/study and I agree with the findings as stated by resident physician Dr. Rick Nevarez. This study was interpreted at [place], [place]. MACRO: None Signed by: Bernadette Tapia 12/19/2023 2:07 AM Dictation workstation: [id number] MR cervical spine w and wo IV contrast Result Date: 12/19/2023 Interpreted By: Bernadette Tapia, and Libby Cabrera STUDY: MR CERVICAL SPINE W AND WO IV CONTRAST; MR THORACIC SPINE W AND WO IV CONTRAST; MR LUMBAR SPINE W AND WO IV CONTRAST; 12/18/2023 8:43 pm INDICATION: Signs/Symptoms:recent spinal cord stimulator complicated by hematoma now with BLE numbness, saddle anesthesia and urinary incontinence. COMPARISON: MRI of the thoracic spine dated 11/08/2023; MRI of the lumbar spine dated 12/06/2023 and 11/13/2023;. ACCESSION NUMBER(S): [id number]; [id number]; [id number] ORDERING CLINICIAN: FATOU TELLEZ TECHNIQUE: Sagittal T1, T2, STIR, axial T1 and axial T2 weighted images were acquired through the cervical, thoracic and lumbar spine. Postcontrast images were obtained of the administration of 20 mL of Dotarem intravenous contrast. FINDINGS: Study is somewhat degraded by motion. CERVICAL SPINE: Alignment: There is 2 mm anterolisthesis of C4 on C5, 2 mm retrolisthesis of C5 on C6 and 3 mm retrolisthesis of C6 on C7. Vertebrae/Intervertebral Discs: The vertebral bodies demonstrate expected height. The marrow signal is within normallimits without evidence of STIR hyperintense edema or T1 hypointense, marrow replacing processes.. Mild multilevel intervertebral disc desiccation is present with moderate intervertebral disc height loss noted at C6-C7. Mild disc height loss is present at C5-C6. Cord: Within limits of motion, no discrete intramedullary cord signal abnormality is identified. No pathologic leptomeningeal or epidural enhancement is present. C1-C2: The cervicomedullary junction appears unremarkable. There is no spinal canal stenosis. C2-C3: There is no posterior disc contour abnormality. There is no significant spinal canal or neural foraminal stenosis. C3-C4: Mild central disc protrusion encroaching the thecalsac without significant spinal canal or neural foraminal stenosis. C4-C5: Bulging disc effaces the anterior subarachnoid space and abuts the ventral cervical spinal cord without spinal canal stenosis. No neural foraminal narrowing is present. C5-C6: Posterior disc bulge with flattening of the thecal sac with mild associated spinal canal narrowing. There is encroachment of the lateral recesses with mild bilateral neural foraminal stenosis. C6-C7: Posterior disc bulge and ligamentum flavum thickening and facet arthropathy results in ckpn-dr-oowoyedo spinal canal stenosis. Mild neural foraminal stenosis is present bilaterally. C7-T1: There is no posterior disc contour abnormality. There is no significant spinal canal or neural foraminal stenosis. The prevertebral and posterior paraspinous soft tissues are within normal limits. No STIR hyperintense soft tissue edema is present. THORACIC SPINE: Thoracic vertebral alignment is maintained. Vertebrae/Intervertebral Discs: The vertebral body heights are intact. Marrow signal is within normal limits without evidence of STIR hyperintense edema. The disc spaces are preserved. Cord: Normal in signal. No pathologic leptomeningeal or epidural enhancement is identified, within limits of the exam. Mild spinal canal narrowing appears to be present at the level of T10-T11 due to degenerate facet changes, similar in appearance to prior exam on 11/08/2023. Please refer to previously dictated MRI on 11/08/2023 for level by level detail of the degenerative changes, not significant progressed from prior study. Paraspinal musculature is unremarkable in appearance. LUMBAR SPINE: There are 5 lumbar type non rib-bearing vertebral bodies, with the lowest well-formed intervertebral disc space labeled L5-S1. Lumbar vertebral alignment is maintained without evidence of significant spondylolisthesis. Vertebrae/Intervertebral Discs: The vertebral bodies demonstrate expected height. The marrow signal is within normal limits without evidence of new STIR hyperintense edema or pathologic enhancement within limits of the study. Intervertebral disc desiccation with mild disc height loss is present at L4-L5, similar in appearance to prior exam on 12/06/2023. Conus: The lower thoracic cord appears unremarkable. The conus terminates at L1-L2. No new pathologic leptomeningeal or epidural enhancement is present within limits of the study. T12-L1: There is no significant spinal canal or neural foraminal stenosis. Note is made of a perineural cyst measuring 0.7 cm in the left neural foramina. L1-2: There is no significant spinal canal or neural foraminal stenosis. L2-3: Facet arthropathy and ligamentum flavum thickening without significant spinal canal or neural foraminal stenosis. L3-4: Facet arthropathy and ligamentum flavum thickening withoutsignificant spinal canal foraminal stenosis. L4-5: There is redemonstration of the circumferential disc bulge with superimposed left subarticular/para foraminal disc herniation which effaces the leftsubarticular recess and contributes to mild spinal canal and moderate to severe left-sided neural foraminal stenosis with likely abutment/compression of the exiting left L4 nerve, overall unchanged in appearance to prior study. Mild right-sided neural foraminal stenosis is also similar in appearance to prior exam. L5-S1: Facet arthropathy, ligamentum flavum thickening and posterior disc bulge without significant spinal canal stenosis. There is mild bilateral neural foraminal stenosis STIR hyperintense signal changes with some postcontrast enhancement is again present in the sub cutaneous tissues of the lower back, overlying the posterior elements of L2 through L4, with near-complete interval resolution of T2 hyperintense fluid previously seen on 12/06/2023, now measuring 12 x 3 mm in sizecompared to 18 x 7 mm on previous imaging (series 21, image 28). No new fluid collections are present in the subcutaneous soft tissues. No edema is present in the psoas musculature. 1. Ongoing interval decrease in size of T2 hyperintense fluid collection in the cutaneous tissues of the lower lumbar spine compared to prior exam on 12/06/2023, now measuring up to 3 mm in size compared to 18 x 7 mm on previous imaging. No new fluid collections are present in the cutaneous tissues. Associated STIR hyperintense signal changes with enhancement in the adjacent cutaneous tissues aresimilar to prior exam. 2. Unchanged left subarticular/para foraminal disc herniation at the level of L4-L5 which effaces of the left subarticular recess and contributes to moderate left-sided neural foraminal narrowing with likely abutment/effacement of the exiting left L4 nerve. Additional level by level degenerative changes of the lumbar spine are described above, without evidence of the new spinal canal stenosis. 3. Multilevel degenerative changes of the cervical spine as detailed above, with nalr-dq-hqftibxw narrowing present at the level of C6-C7 due to disc osteophyte complex and ligamentum flavum thickening. 4. Mild degenerative changes in the thoracic spine are similar in appearanceto prior exam on 11/08/2023 without evidence of new high-grade stenosis.. I personally reviewed theimages/study and I agree with the findings as stated by resident physician Dr. Rick Nevarez. This study was interpreted at [facility], [place], [place]. MACRO: None Signed by: Bernadette Tapia 12/19/2023 2:07 AM Dictation workstation: [id number] MR thoracic spine w and wo IV contrast Result Date: 12/19/2023 Interpreted By: Bernadette Tapia, and Libby Cabrera STUDY: MR CERVICAL SPINE W AND WO IV CONTRAST; MR THORACIC SPINE W AND WO IV CONTRAST; MR LUMBAR SPINE W AND WO IV CONTRAST; 12/18/2023 8:43 pm INDICATION: Signs/Symptoms:recent spinal cord stimulator complicated by hematoma now with BLE numbness, saddle anesthesia and urinary incontinence. COMPARISON: MRI of the thoracic spine dated 11/08/2023; MRI of the lumbar spine dated 12/06/2023 and 11/13/2023;. ACCESSION NUMBER(S): [id number]; [id number]; [id number] ORDERING CLINICIAN: FATOU TELLEZ TECHNIQUE: Sagittal T1, T2, STIR, axial T1 and axial T2 weighted images were acquired through the cervical, thoracic and lumbar spine. Postcontrast images were obtained of the administration of 20 mL of Dotarem intravenous contrast. FINDINGS: Study is somewhat degraded by motion. CERVICAL SPINE: Alignment: There is 2 mm anterolisthesis of C4 on C5, 2 mm retrolisthesis of C5 on C6 and 3 mm retrolisthesis of C6 on C7. Vertebrae/Intervertebral Discs: The vertebral bodies demonstrate expected height. The marrow signal is within normallimits without evidence of STIR hyperintense edema or T1 hypointense, marrow replacing processes.. Mild multilevel intervertebral disc desiccation is present with moderate intervertebral disc height loss noted at C6-C7. Mild disc height loss is present at C5-C6. Cord: Within limits of motion, no discrete intramedullary cord signal abnormality is identified. No pathologic leptomeningeal or epidural enhancement is present. C1-C2: The cervicomedullary junction appears unremarkable. There is no spinal canal stenosis. C2-C3: There is no posterior disc contour abnormality. There is no significant spinal canal or neural foraminal stenosis. C3-C4: Mild central disc protrusion encroaching the thecalsac without significant spinal canal or neural foraminal stenosis. C4-C5: Bulging disc effaces the anterior subarachnoid space and abuts the ventral cervical spinal cord without spinal canal stenosis. No neural foraminal narrowing is present. C5-C6: Posterior disc bulge with flattening of the thecal sac with mild associated spinal canal narrowing. There is encroachment of the lateral recesses with mild bilateral neural foraminal stenosis. C6-C7: Posterior disc bulge and ligamentum flavum thickening and facet arthropathy results in ztah-vj-fniapfxz spinal canal stenosis. Mild neural foraminal stenosis is present bilaterally. C7-T1: There is no posterior disc contour abnormality. There is no significant spinal canal or neural foraminal stenosis. The prevertebral and posterior paraspinous soft tissues are within normal limits. No STIR hyperintense soft tissue edema is present. THORACIC SPINE: Thoracic vertebral alignment is maintained. Vertebrae/Intervertebral Discs: The vertebral body heights are intact. Marrow signal is within normal limits without evidence of STIR hyperintense edema. The disc spaces are preserved. Cord: Normal in signal. No pathologic leptomeningeal or epidural enhancement is identified, within limits of the exam. Mild spinal canal narrowing appears to be present at the level of T10-T11 due to degenerate facet changes, similar in appearance to prior exam on 11/08/2023. Please refer to previously dictated MRI on 11/08/2023 for level by level detail of the degenerative changes, not significant progressed from prior study. Paraspinal musculature is unremarkable in appearance. LUMBAR SPINE: There are 5 lumbar type non rib-bearing vertebral bodies, with the lowest well-formed intervertebral disc space labeled L5-S1. Lumbar vertebral alignment is maintained without evidence of significant spondylolisthesis. Vertebrae/Intervertebral Discs: The vertebral bodies demonstrate expected height. The marrow signal is within normal limits without evidence of new STIR hyperintense edema or pathologic enhancement within limits of the study. Intervertebral disc desiccation with mild disc height loss is present at L4-L5, similar in appearance to prior exam on 12/06/2023. Conus: The lower thoracic cord appears unremarkable. The conus terminates at L1-L2. No new pathologic leptomeningeal or epidural enhancement is present within limits of the study. T12-L1: There is no significant spinal canal or neural foraminal stenosis. Note is made of a perineural cyst measuring 0.7 cm in the left neural foramina. L1-2: There is no significant spinal canal or neural foraminal stenosis. L2-3: Facet arthropathy and ligamentum flavum thickening without significant spinal canal or neural foraminal stenosis. L3-4: Facet arthropathy and ligamentum flavum thickening withoutsignificant spinal canal foraminal stenosis. L4-5: There is redemonstration of the circumferential disc bulge with superimposed left subarticular/para foraminal disc herniation which effaces the leftsubarticular recess and contributes to mild spinal canal and moderate to severe left-sided neural foraminal stenosis with likely abutment/compression of the exiting left L4 nerve, overall unchanged in appearance to prior study. Mild right-sided neural foraminal stenosis is also similar in appearance to prior exam. L5-S1: Facet arthropathy, ligamentum flavum thickening and posterior disc bulge without significant spinal canal stenosis. There is mild bilateral neural foraminal stenosis STIR hyperintense signal changes with some postcontrast enhancement is again present in the sub cutaneous tissues of the lower back, overlying the posterior elements of L2 through L4, with near-complete interval resolution of T2 hyperintense fluid previously seen on 12/06/2023, now measuring 12 x 3 mm in sizecompared to 18 x 7 mm on previous imaging (series 21, image 28). No new fluid collections are present in the subcutaneous soft tissues. No edema is present in the psoas musculature. 1. Ongoing interval decrease in size of T2 hyperintense fluid collection in the cutaneous tissues of the lower lumbar spine compared to prior exam on 12/06/2023, now measuring up to 3 mm in size compared to 18 x 7 mm on previous imaging. No new fluid collections are present in the cutaneous tissues. Associated STIR hyperintense signal changes with enhancement in the adjacent cutaneous tissues aresimilar to prior exam. 2. Unchanged left subarticular/para foraminal disc herniation at the level of L4-L5 which effaces of the left subarticular recess and contributes to moderate left-sided neural foraminal narrowing with likely abutment/effacement of the exiting left L4 nerve. Additional level by level degenerative changes of the lumbar spine are described above, without evidence of the new spinal canal stenosis. 3. Multilevel degenerative changes of the cervical spine as detailed above, with lxhu-fc-nukfcadd narrowing present at the level of C6-C7 due to disc osteophyte complex and ligamentum flavum thickening. 4. Mild degenerative changes in the thoracic spine are similar in appearanceto prior exam on 11/08/2023 without evidence of new high-grade stenosis.. I personally reviewed theimages/study and I agree with the findings as stated by resident physician Dr. Rick Nevarez. This study was interpreted at [facility], [place], [place]. MACRO: None Signed by: Bernadette Tapia 12/19/2023 2:07 AM Dictation workstation: [id number] CT lumbar spine w IV contrast Result Date: 12/15/2023 Interpreted By: Allyson Schultz, STUDY: CT ABDOMEN PELVIS W IV CONTRAST; CT LUMBAR SPINE W IV CONTRAST; 12/15/2023 7:50 pm INDICATION: Signs/Symptoms:h/o spinal stim c/b infections with wound vac inplace, pain to surrounding areas radiating to flanks. COMPARISON: 12/07/2023 CT abdomen/pelvis ACCESSION NUMBER(S): [id number]; [id number] ORDERING CLINICIAN: PABLO GERONIMO TECHNIQUE: Contiguous axial images of the abdomen and pelvis were obtained after the intravenous administration of iodinated contrast. Coronal and sagittal reformatted images were reconstructed from the axial data. Multiplanar reformatted images of the lumbar spine were obtained. FINDINGS: CT LUMBAR SPINE: ALIGNMENT:No traumatic spondylolisthesis or traumatic facet widening. VERTEBRAE: No acute fracture. Vertebralbody heights are maintained. SPINAL CANAL/INTERVERTEBRAL DISCS/NEURAL FORAMINA: [...] acute retroperitoneal abnormality. No enlarged lymph nodes. BOWEL/MESENTERY/PERITONEUM: No inflammatory bowel wall thickening or dilatation. Normal appendix. No ascites, free air, or fluid collection. MUSCULOSKELETAL: No acute osseous abnormality. No suspicious osseous lesion. Wound VAC overlying a soft tissue ulceration in the midline of the back. At the base of the ulcer there is skin thickening and mild subjacent fat stranding. The degree of skin thickening is slightly increased in thickness and extent. There is no underlying fluid collection. No evidence of paraspinal infection or discitis osteomyelitis. Degenerative changes of lumbar spine as described above, mostadvanced at L4-5 and L5-S1 at which there could be impingement of the descending left L5 nerve rootat L4-L5 and intraforaminal right L5 nerve root at L5-S1. MACRO: None. Signed by: Allyson Schultz 12/15/2023 8:37 PM Dictation workstation: [id number] CT lumbar spine wo IV contrast Result Date: 12/07/2023 STUDY: CT Abdomen and Pelvis with IV Contrast; CT Lumbar Spine Without IV Contrast; 12/07/2023 at 6:06 PM INDICATION: Left sided abdominal pain and guarding. Recent post op fluid collection on lumbar spine MRI. Evaluate for diverticulitis. COMPARISON: CT lumbar spine 12/07/2023, MRI lumbar spine 2023, CT lumbar spine 11/13/2023, CT lumbar spine , XR abdomen 10/31/2023. ACCESSION NUMBER(S): [id number], [id number] ORDERING CLINICIAN: DOUG ALFONSO TECHNIQUE: CT of the abdomen and pelvis was performed. Contiguous axial images were obtained at 3 mm slice thickness through the abdom en and pelvis. Coronal and sagittal reconstructions at [...] BOWEL: No abnormalities identified. Appendix is normal. VESSELS:No abnormalities identified. Abdominal aorta is normal in caliber. PERITONEUM/RETROPERITONEUM/LYMPHNODES: No free fluid. No pneumoperitoneum. No lymphadenopathy. [...] normal limits. The visualized abdomen is unremarkable. 1. No acute process. 2. Again noted is some subcutaneous edema posterior to the midline lumbar spine overall stable in appearance compared to prior exam. No underlying fluid collection or abscess. 3.The hyperdensity in the anterior aspect of the spinal canal at L4-5 seen on prior exam is less wellvisualized on the current study. 4. Hepatic steatosis. Signed by Taj Chandler MD MR lumbar spine w and wo IV contrast Result Date: 12/07/2023 Interpreted By: Oscar Sabillon, and Daniela Kaba STUDY: MR LUMBAR SPINE W AND WO IV CONTRAST; 12/06/2023 9:50 pm INDICATION: Signs/Symptoms:post op wound complication. COMPARISON: MR lumbar spine 11/13/2023. ACCESSION NUMBER(S): [id number] ORDERING CLINICIAN: MARQUIS CALDERÓN TECHNIQUE: SagittalT1, T2, STIR, axial T1 and T2 weighted images of the lumbar spine were acquired. Postcontrast T1 images were obtained after the administration of 20 mL of intravenous Dotarem. FINDINGS: This report assumes 5 non-rib bearing lumbar vertebral bodies. The lowest intervertebral disc will be labeled L5-S1. Alignment: Mild degenerative retrolisthesis of L4 on L5. The vertebral alignment is otherwise maintained. Vertebrae/Intervertebral Discs: The vertebral bodies demonstrate expected height. [...] sac, without significant central canal stenosis. No significantneural foraminal stenosis. L3-4: Mild disc bulge. Moderate facet arthropathy and epidural dorsal fat without significant canal or foraminal stenosis. L4-5: Disc bulge with superimposed left subarticular disc protrusion. Prominent ventral epidural fat. Moderate ligamentum flavum hypertrophy. Moderate bilateral facet arthropathy. This results in moderate central canal stenosis and moderate to severe left subarticular stenosis, similar to prior. Fzyt-bq-krjjuxyp cpcor-kmfwyec-troy-left neural foraminal stenosis. L5-S1: Small disc bulge [...] multiple foci of susceptibility artifact, likely representing air.The foci of gas extent to the dorsal midline skin surface at the level of L2-L3 suggestive of a surgical wound or sinus tract. No direct evidence of a formed/loculated fluid collection. 1. Previously described focal fluid collection of the level of L3 has almost completely resolved with residual thick rim enhancing fluid collection measuring 1.3 x 0.8 x 0.9 cm, possibly representinggranulation tissue. There is however, enhancement/edema of the skin overlying the paraspinal soft tissues from the levels of L1 through L3. Deep to this area, there is ill-defined edema and enhancement extending within the deep subcutaneous fat extending to the superficial fascia. There are foci ofgas extending from the midline dorsal fat to the skin surface at the level of L2-L3, which may represent a surgical wound versus sinus tract. These findings may represent cellulitis versus recent post surgical change with granulation tissue. Clinical correlation recommended. 2. Stable degenerative changes, as described above. I personally reviewed the images/study and I agree with the findings as stated by Sesar Suarez MD. This study was interpreted at [facility], [place], [place] MACRO: None Signed by: Oscar Sabillon 12/07/2023 1:30 AM Dictation workstation: [id number] CT lumbar spine w IV contrast Result Date: 12/04/2023 12/04/2023 10:42 PM TECHNIQUE: CT SPINE [...] consider dedicated adrenal imaging. Keke Beebe D.O.Workstation ID:[id number] MR lumbar spine w and wo IV contrast Result Date: 11/14/2023 Interpreted By: Oscar Sabillon and Kenji Herr STUDY: MR LUMBAR SPINE W AND WO IV CONTRAST; 11/13/2023 8:10 pm INDICATION: Signs/Symptoms:r/o abscess. COMPARISON: MRI lumbar spine 10/31/2023 ACCESSION NUMBER(S): [id number] ORDERING CLINICIAN: CRISTOBAL GARIBAY TECHNIQUE: Sagittal T1, T2, STIR, axial T1 and T2 weighted images of the lumbar spine were acquired. Postcontrast imaging was obtained after the administration of 20 mL Dotarem. FINDINGS: There are 5 lumbar-type vertebral bodies, the last well-formed disc space is labeled L5-S1. Alignment: The vertebral alignment is maintained. Vertebrae/Intervertebral Discs: The vertebral bodies demonstrate expected height. Similar appearanceof degenerative disc space narrowing at L4-L5 with type 2 endplate Modic change. Disc desiccation at L5-S1. Conus Medullaris: The lower thoracic cord appears unremarkable. The conus terminates at L1-L2. The cauda equina is unremarkable. T12-L1: Stable nonenhancing perineural sleeve cyst in the leftneural foramen causing mild left foraminal stenosis. No [...] similar to prior. There is also similar utgl-ci-lfnybmir right greater than left foraminal stenosis due to disc material and facet hypertrophy. L5-S1: Disc bulge and facet arthropathycontributes to mild right foraminal stenosis. No significant central canal or left foraminal stenosis. Interval decrease in size of a fluid-filled collection within the posterior soft tissues to the left of midline at the L3 level which currently measures 1.8 x 2.2 x 2.0 Cm, previously measuring 2.3 x 3.0 x 2.4 cm. There is surrounding enhancement similar to mildly improved compared to prior exami nation. 1. Interval decrease in size of fluid collection within the posterior subcutaneous tissues to the left of midline at the level of L3. There is surrounding inflammatory changes which may also represent postoperative changes. Sterility of this collection can not be determined on imaging. 2. Similar de generative changes most prominent at L4-L5 with moderate spinal canal stenosis and bilateral neuralforaminal stenosis. I personally reviewed the images/study and I agree with the findings as stated.This study was interpreted at [place], [place]. Signed by: Oscar Sabillon 11/14/2023 2:57 AM Dictation workstation: [id number] CT lumbar spine wo IV contrast Addendum Date: 11/13/2023 This finding was discussed with and acknowledged by Dr Alana Lindquist on 11/13/2023 at 2:54 PM Signed by Michele Berry MD Result Date: 11/13/2023 STUDY: CT Lumbar Spine without IV Contrast; 11/13/2023 1:45 PM INDICATION: Re- assess surgical site. COMPARISON: CT lumbar 11/09/2023. MR lumbar 10/31/2023. ACCESSION NUMBER(S): [id number] ORDERING CLINICIAN: ALANA LINDQUIST TECHNIQUE: CT of [...] of L3 is no longer seen. At L4-5,there is a hyperdensity in the anterior portion [...] unchanged. The visualized abdomen is otherwise unremarkable. 1. Again seen is the edema in [...] a few days makes this more suspicious rita epidural abscess. Recommend contrast-enhanced MRI for further evaluation. Signed by Michele Berry MD CT lumbar spine w IV contrast Result Date: 11/09/2023 STUDY: CT Lumbar Spine with IV Contrast; 11/09/2023 at 2:52 PM. INDICATION: Pain and swelling. COMPARISON: MR lumbar 10/31/2023, 10/31/2022. ACCESSION NUMBER(S): [id number] ORDERING CLINICIAN: JAROCHO LINDER TECHNIQUE: CT of the lumbar spine was performed with intravenous contrast. Sagittal and coronal reconstructions were generated. Omnipaque 350 70 mL was administered intravenously. Automated mA/kV exposure control was utilized and patient examination was performed in strict accordance with principles of ALARA. FINDINGS: No compression deformities are visualized lumbar spine. No spondylolis thesis is noted. No pars defects are seen. [...] process, measured at 2.2 x 1.2 x 1.7cm(Series 2, Image 74; Series 8, Image 65), [...] is measured at 1.1 x 1.0 cm. 1. Fat stranding posterior to the spinous processes of L1-L4, suspicious for deep cellulitis. 2. Small fluid collection posterior to the L3 spinous process, suspicious for an abscess. 3. Second focalarea of cellulitis seen over the upper left buttock region. 4. Disc bulging with spinal stenoses atL4-5 and L5-S1. Evaluation for an epidural abscess is limited on this modality. 5. Indeterminate bilateral adrenal nodules. Follow-up with adrenal protocol CT is recommended. Signed by Doc Vela MD MR thoracic spine wo IV contrast Result Date: 11/08/2023 Interpreted By: Peter Smith, STUDY: MR THORACIC SPINE WO IV CONTRAST; 11/08/2023 8:25 am INDICATION: Signs/Symptoms:presurgical planning for reimplant of thoracic spinal cord stimulator leads. COMPARISON: None. ACCESSION NUMBER(S): [id number] ORDERING CLINICIAN: CHIRAG REYNOSO TECHNIQUE: Sagittal T1, T2, STIR and [...] T5-6: There are degenerative facet changes without significantspinal canal narrowing. T6-7: There are degenerative facet changes without significant spinal canalnarrowing. T7-8: There are degenerative facet changes without [...] The sagittal images demonstrate no significant spinal canalor neural foraminal narrowing. No axial images were obtained through this level limiting further evaluation. There is multilevel spondylosis as described above. MACRO: None Signed by: Peter Smith :53 AM Dictation workstation: [id number] MR lumbar spine w and wo IV contrast Result Date: 11/01/2023 EXAMINATION: MRI OF THE LUMBAR SPINE WITHOUT [...] night Additional signs and symptoms: kub done 87for mri clearance FINDINGS: BONES/ALIGNMENT: Modic type 2 endplate change at L4-L5. Vertebral heights and alignment are normal. No abnormal marrow enhancement or edema. SPINAL CORD: The conus terminates normally. SOFT TISSUES: There is a 31 x 27 x 22 mm (transverse x anteroposterior x craniocaudal)rim enhancing pocket of fluid in the midline subcutaneous space at L3 with mild surrounding enhancement. No epidural or immediate paraspinal fluid collection is identified. L1-L2: There is no signific ant disc protrusion, spinal canal stenosis or neural [...] spinal canal stenosis or neural foraminal narrowing. 31 mm midline subcutaneous fluid collection at L3 may be sterile or infected. L4-L5 disc bulge possibly compressing the left L5 nerve root. MR lumbar spine w and wo IV contrast Result Date: 11/01/2023 Interpreted By: Amy Miller and Stephens Katherine STUDY: MR LUMBAR SPINE W AND WO IV CONTRAST; 10/31/2023 10:52 pm INDICATION: Signs/Symptoms:r/o infection. COMPARISON: MRI lumbar spine 10/31/2022 ACCESSION NUMBER(S): [id number] ORDERING CLINICIAN: ELKE ADAMS TECHNIQUE: Multiplanar multisequence MR imaging of the lumbar spine performed prior to and following administration of 20 mL Dotarem intravenous contrast. Sagittal T1, T2, STIR, axial T1 and T2 weighted images of the lumbar spinewere acquired. Postcontrast sagittal and axial T1 imaging [...] epidural fat, and facet arthropathy without significant spinalcanal or neural foraminal stenosis. L3-4: Circumferential disc [...] without significant spinal canal or neural foraminal s tenosis. Soft tissues: Within the posterior soft tissues to the left of the midline approximately the level of L3 a T2 hyperintense, T1 hypointense collection is seen measuring 3.3 x 3.3 x 2.4 cm (series 12, image 19 and series 15, image 34). There is surrounding enhancement which is favored to be p ostoperative and inflammatory in nature, however rim enhancement is not fully excluded. There is overlying soft tissue swelling. Findings appear new since prior imaging. 1. 3.3 cm fluid collection within the [...] notable at L4-5 with left paracentral disc bu lge/extrusion resulting in effacement the left lateral recess which likely contacts the traversing left L5 nerve root as well as moderate canal stenosis. I personally reviewed the images/study and I agree with Germaine Segovia DO's (resident buyer) findings as stated. This study was interpreted at [place], [place]. MACRO: None Signed by: Amy Miller 11/01/2023 12:21 AM Dictation workstation: [id number] Assessment/Plan 62 years old with history and physical examination supportive of lumbar disc displacement and lumbar radicular the awaiting discectomy coming up in 2 days Plan Discussed with the patient the different modalities available for the treatment of her condition since she is going for surgery in 2 days I would recommend to proceed with the surgery obviously she will require postoperative treatment with short acting opioid such as oxycodone to cover her for the first 7 days postoperatively after surgery is completed then the patient should be reevaluated to determine the need for long-term management on medication if her pain persisted despite the surgery patient verbalized understanding and agreement with the plan The above clinical summary has been dictated with voice recognition software. It has not been proofread for grammatical errors, typographical mistakes, or other semantic inconsistencies. Thank you for visiting our office today. It was our pleasure to take part in your healthcare. Please do not hesitate to contact the pain clinic after your visit with any questions or concerns at [phone] M-F 8-4 pm Dino Melgoza M.D. Landscaping Supervisor , Division of Pain Medicine [facility] [employer] Duplicator of Anesthesiology and Pain Medicine [facility] [address] [facility] [address] [place] [address] Office: [phone] Dino Melgoza MD documented in this [facility] Work Phone: 1(161) 341-475411-12-2024 History of Present illness Narrative* Fanny Edwards RN - 02/04/2024 3:30 PM EST Subjective Karina Tracy is a 48 y.o. female who presents for evaluation of her lumbar pain. The pain is located in the lower back area. The pt had a spinal cord stimulator and had to have to removed the next day due to the pt having a large blood clot attached to the stimulator. The pt is having surgery next to have her disk out. Here for pain mgt help post surgery Past Medical History: Diagnosis Date Anxiety Arthritis Bipolar disorder Chronic pain disorder Depression HCV (hepatitis C virus) 2013 treated and resolved Herniated lumbar intervertebral disc Liver disease stage 3 - stable Lumbar radiculopathy, chronic Neuropathic pain Plan: Thoracic Laminectomy for Spinal Cord Stimulator Leads; Generator Implant 11/21/23 Obesity Vision loss Past Surgical History: Procedure Laterality Date ADENOIDECTOMY BUNIONECTOMY Bilateral CHOLECYSTECTOMY COLONOSCOPY DENTAL SURGERY Bilateral all teeth removed, dentures HYSTERECTOMY MYRINGOTOMY W/ TUBES Bilateral SPINAL CORD STIMULATOR IMPLANT 09/23/2023 Percutaneous Thoracic Spinal Cord Stimulator Leads and Generator Placement SPINAL CORD STIMULATOR REMOVAL 10/14/2023 SPINAL CORD STIMULATOR TRIAL W/ LAMINOTOMY 08/21/2023 Percutaneous Thoracic Spinal Cord Stimulator Trial TONSILLECTOMY I have reviewed the nurses notes and am aware of family/social history. Review of Systems Objective Physical Exam ASSESSMENT: PLAN: Discussed treatment plan with patient. Call or return to clinic prn if these symptoms worsen or fail to improve as anticipated. Fanny Edwards RN documented in this [facility] Work Phone: 1(987) 672-591811-07-2024 Emergency department Note* Germaine Blair PA-C - 01/30/2024 10:56 AM EST Patient is a 48-year-old female who presents to the emergency room with a chief complaint of low back pain. Patient has a history of chronic low back pain. She has been seen quite frequently for her symptoms. She states that she is scheduled for surgery in 1 week. She recently was admitted to [facility] pain control. She was discharged 2 days ago. She states that yesterday she fell twice due to her legs giving out. She denies hitting her head or loss of consciousness. She denies any direct trauma to her back. She states that she fell landing onto her left knee. She states that her left leg is weak and has chronically been weak, no worse than normal. She states that she called her surgeon whoinstructed her to come to the emergency room for further evaluation as she has worsening pain. No bowel or bladder incontinence or retention. No saddle anesthesia. Patient also reports that she was prescribed Mobic and oxycodone which she states both were extremely helpful. She states that she was instructed to to stop taking her Mobic 7 days from surgery and has not been able to take this and she also reports that she is out of her oxycodone. She states that she was taking as prescribed. Review of Systems Constitutional: Negative for chills and fever. HENT: Negative for ear pain and sore throat. Eyes: Negative for pain and visual disturbance. Respiratory: Negative for cough and shortness of breath. Cardiovascular: Negative for chest pain and palpitations. Gastrointestinal: Negative for abdominal pain and vomiting. Genitourinary: Negative for dysuria and hematuria. Musculoskeletal: Positive for back pain. Negative for arthralgias. Skin: Negative for color change and rash. Neurological: Negative for seizures and syncope. All other systems reviewed and are negative. Physical Exam Vitals and nursing note reviewed. Constitutional: General: She is not in acute distress. Appearance: Normal appearance. She is well-developed. HENT: Head: Normocephalic and atraumatic. Eyes: Extraocular Movements: Extraocular movements intact. Conjunctiva/sclera: Conjunctivae normal. Cardiovascular: Rate and Rhythm: Normal rate and regular rhythm. Pulses: Normal pulses. Heart sounds: No murmur heard. Pulmonary: Effort: Pulmonary effort is normal. No respiratory distress. Breath sounds: Normal breath sounds. No stridor. No wheezing, rhonchi or rales. Chest: Chest wall: No tenderness. Abdominal: General: There is no distension. Palpations: Abdomen is soft. There is no mass. Tenderness: There is no abdominal tenderness. There is no guarding or rebound. Hernia: No hernia is present. Musculoskeletal: General: No swelling, deformity or signs of injury. Cervical back: Normal range of motion and neck supple. No swelling, edema, deformity, erythema, rigidity or tenderness. Normal range of motion. Thoracic back: No swelling, deformity, signs of trauma or tenderness. Normal range of motion. Lumbar back: Tenderness present. No swelling, edema, deformity, signs of trauma, spasms or bony tenderness. Normal range of motion. Positive left straight leg raise test. Right lower leg: No edema. Left lower leg: No edema. Skin: General: Skin is warm and dry. Capillary Refill: Capillary refill takes less than 2 seconds. Neurological: General: No focal deficit present. Mental Status: She is alert and oriented to person, place, and time. Cranial Nerves: No cranial nerve deficit. Sensory: No sensory deficit. Motor: Weakness (chronic left leg weakness on exam, Patient was able to lift left leg in the bed without difficulty) present. Coordination: Coordination normal. Deep Tendon Reflexes: Reflexes normal. Psychiatric: Mood and Affect: Mood normal. Labs Reviewed - No data to display No orders to display Procedures Medical Decision Making Patient is a 48-year-old female with chronic low back pain who presents today for worsening low back pain after falling twice yesterday. She states that she did not hit her back and landed directly onto her left knee. There was no direct trauma to her back. She denies hitting her head or loss of consciousness. No signs of cauda equina. I do not appreciate any trauma to her back. She does have some tenderness to her left knee and x-ray was recommended in which she is declining at this time. Patient was recently admitted at [facility] for pain control. She was discharged 2 days ago. Patient has had 2 MRIs this month, both showing no change. I actually recently saw the patient on January 09 and hadordered an MRI and spoke with neurology who stated that patient's symptomatology was not consistentwith MRI findings and no emergent intervention was indicated. Patient is scheduled for spinal surgery on 1113. She is neurovascularly intact. She ambulates slightly dragging her left leg which once again this is chronic, she is able to lift her left leg without any difficulty in bed upon my observation. I do not think any imaging is indicated at this time given that there are no signs of cauda equina, patient denies any direct trauma to her back and reports that she landed directly onto her left knee, no trauma appreciated to back. Discussed with patient that I would treat her pain here in the emergency department. I also discussed with patient that after today I did not feel comfortable giving her any more pain medication and given that she is unable to take NSAIDs at this time to prepare for surgery I did instruct her to follow-up with pain management and further discuss how to move forward with treatment until her surgery. Chronic low back pain, Back strain, AAA rupture, cauda equina syndrome, cord compression, compression fracture, epidural abscess, epidural hematoma, herniated disc, sciatica, nephrolithiasis, ureterolithiasis, PE, pyelonephritis, vertebral fracture, pancreatitis, zoster Diagnoses as of 01/30/24 1153 Fall, initial encounter Chronic low back pain with left-sided sciatica, unspecified back pain laterality Germaine Blair PA-C 01/30/24 1153 documented in this [facility] Work Phone: 1(148) 534-768411-07-2024 Physician Emergency department Note* Germaine Blair PA-C - 01/30/2024 10:56 AM EST Patient is a 48-year-old female who presents to the emergency room with a chief complaint of low back pain. Patient has a history of chronic low back pain. She has been seen quite frequently for her symptoms. She states that she is scheduled for surgery in 1 week. [facility] She was [facility] 2 days ago. She states that yesterday she fell twice due to her legs giving out. She denies hitting her head or loss of consciousness. She denies any direct trauma to her back. She states that she fell landing onto her left knee. She states that her left leg is weak and has chronically been weak, no worse than normal. She states that she called her surgeon whoinstructed her to come to the emergency room for further evaluation as she has worsening pain. No bowel or bladder incontinence or retention. No saddle anesthesia. Patient also reports that she was prescribed Mobic and oxycodone which she states both were extremely helpful. She states that she was instructed to to stop taking her Mobic 7 days from surgery and has not been able to take this and she also reports that she is out of her oxycodone. She states that she was taking as prescribed. Review of Systems Constitutional: Negative for chills and fever. HENT: Negative for ear pain and sore throat. Eyes: Negative for pain and visual disturbance. Respiratory: Negative for cough and shortness of breath. Cardiovascular: Negative for chest pain and palpitations. Gastrointestinal: Negative for abdominal pain and vomiting. Genitourinary: Negative for dysuria and hematuria. Musculoskeletal: Positive for back pain. Negative for arthralgias. Skin: Negative for color change and rash. Neurological: Negative for seizures and syncope. All other systems reviewed and are negative. Physical Exam Vitals and nursing note reviewed. Constitutional: General: She is not in acute distress. Appearance: Normal appearance. She is well-developed. HENT: Head: Normocephalic and atraumatic. Eyes: Extraocular Movements: Extraocular movements intact. Conjunctiva/sclera: Conjunctivae normal. Cardiovascular: Rate and Rhythm: Normal rate and regular rhythm. Pulses: Normal pulses. Heart sounds: No murmur heard. Pulmonary: Effort: Pulmonary effort is normal. No respiratory distress. Breath sounds: Normal breath sounds. No stridor. No wheezing, rhonchi or rales. Chest: Chest wall: No tenderness. Abdominal: General: There is no distension. Palpations: Abdomen is soft. There is no mass. Tenderness: There is no abdominal tenderness. There is no guarding or rebound. Hernia: No hernia is present. Musculoskeletal: General: No swelling, deformity or signs of injury. Cervical back: Normal range of motion and neck supple. No swelling, edema, deformity, erythema, rigidity or tenderness. Normal range of motion. Thoracic back: No swelling, deformity, signs of trauma or tenderness. Normal range of motion. Lumbar back: Tenderness present. No swelling, edema, deformity, signs of trauma, spasms or bony tenderness. Normal range of motion. Positive left straight leg raise test. Right lower leg: No edema. Left lower leg: No edema. Skin: General: Skin is warm and dry. Capillary Refill: Capillary refill takes less than 2 seconds. Neurological: General: No focal deficit present. Mental Status: She is alert and oriented to person, place, and time. Cranial Nerves: No cranial nerve deficit. Sensory: No sensory deficit. Motor: Weakness (chronic left leg weakness on exam, Patient was able to lift left leg in the bed without difficulty) present. Coordination: Coordination normal. Deep Tendon Reflexes: Reflexes normal. Psychiatric: Mood and Affect: Mood normal. Labs Reviewed - No data to display No orders to display Procedures Medical Decision Making Patient is a 48-year-old female with chronic low back pain who presents today for worsening low back pain after falling twice yesterday. She states that she did not hit her back and landed directly onto her left knee. There was no direct trauma to her back. She denies hitting her head or loss of consciousness. No signs of cauda equina. I do not appreciate any trauma to her back. She does have some tenderness to her left knee and x-ray was recommended in which she is declining at this time. Patient was recently admitted at [facility] for pain control. She was discharged 2 days ago. Patient has had 2 MRIs this month, both showing no change. I actually recently saw the patient on January 09 and hadordered an MRI and spoke with neurology who stated that patient's symptomatology was not consistentwith MRI findings and no emergent intervention was indicated. Patient is scheduled for spinal surgery on 1113. She is neurovascularly intact. She ambulates slightly dragging her left leg which once again this is chronic, she is able to lift her left leg without any difficulty in bed upon my observation. I do not think any imaging is indicated at this time given that there are no signs of cauda equina, patient denies any direct trauma to her back and reports that she landed directly onto her left knee, no trauma appreciated to back. Discussed with patient that I would treat her pain here in the emergency department. I also discussed with patient that after today I did not feel comfortable giving her any more pain medication and given that she is unable to take NSAIDs at this time to prepare for surgery I did instruct her to follow-up with pain management and further discuss how to move forward with treatment until her surgery. Chronic low back pain, Back strain, AAA rupture, cauda equina syndrome, cord compression, compression fracture, epidural abscess, epidural hematoma, herniated disc, sciatica, nephrolithiasis, ureterolithiasis, PE, pyelonephritis, vertebral fracture, pancreatitis, zoster Diagnoses as of 01/30/24 1153 Fall, initial encounter Chronic low back pain with left-sided sciatica, unspecified back pain laterality Germaine Blair PA-C 01/30/24 1153 [facility] Work Phone: 1(591) 855-967211-05-2024 Nurse Note* Edwina Lopez RN - 01/28/2024 10:42 AM EST 1042am Pt given written and verbal discharge instructions with verbalized understanding. Pt's Iv heplock removed per [facility] without difficulty. 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 [facility] Work Phone: [phone]) 978-402111-05-2024 Nurse Note* Edwina Lopez RN - 01/28/2024 10:42 AM EST 1042am Pt given written and verbal discharge instructions with verbalized understanding. Pt's Iv heplock removed per [facility] without difficulty. 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 * Curtis Mckenzie - 01/28/2024 8:46 AM EST Vitals done Breakfast was eaten Call light within reach * Edwina Lopez RN - 01/28/2024 7:45 AM EST 0745am Assumed care of pt, A/O x4 c/o pains 8/10 to low back no distress noted. Pt awake sitting upat side of bed with call light in reach. * Mellissa Chung RN - 01/28/2024 3:30 AM EST Patient resting in bed with eyes closed. Respirations even and unlabored. Call light is within reach and bed alarm is activated. * Mellissa Chung RN - 01/27/2024 11:24 PM EST Patient ambulated to restroom with walker. Void x 1. Returned to bed and positioned for comfort. Medicated with prn toradol for 6/10 low back pain. Vital signs stable. No other needs at this time. Call light is within reach and bed alarm is activated. * Mellissa Chung RN - 01/27/2024 7:30 PM EST Assumed care of patient. Report received from DARSHAN Barrientos. Patient lying in bed watching TV. Vital signs stable. Rates her chronic pain in the lower back an 8/10 and will be medicated per doctor's orders. No other stated needs at this time. Call light is within reach and bed alarm is activated. * Iliana Fox RN - 01/27/2024 3:30 PM EST Patient states she can tolerate a pain level of 7 Medicated as per request and order for pain.Refused to participate with physical therapy. * Iliana Fox RN - 01/27/2024 10:52 AM EST Pain management in to see patient and will discuss pain medication for management. * Iliana Fox RN - 01/27/2024 7:58 AM EST Pain level listed at 7/10 for lower back discomfort.Patient states this is a tolerable pain level for her. * Curtis Mckenzie - 01/27/2024 7:10 AM EST Vitals done Currently NPO Call light within reach * Elke Gtz RN - 01/27/2024 3:50 AM EST Patient arrived on cart via [facility] to room 223 at 0330. Patient is alert and oriented x 4. Vitals are stable. Patient rates left lower back pain 11/01. Dr. Miguel notified of patient's arrival. Patient oriented to room and call light. documented in this [facility] Work Phone: 1(377) 507-637211-05-2024 Hospital course Narrative* Chirag Miguel MD - 01/28/2024 10:03 AM EST Discharge Diagnosis Lumbar radiculopathy, acute Issues Requiring Follow-Up Follow up for surgery as scheduled on 02/06/24. Discharge Meds Medication List START taking these medications meloxicam 15 mg tablet; Commonly known as: Mobic; Take 1 tablet (15 mg) by mouth once daily. topiramate 25 mg tablet; Commonly known as: Topamax; Take 1 tablet (25 mg) by mouth once daily at bedtime for 2 days, THEN 1 tablet (25 mg) 2 times a day for 7 days.; Start taking on: January 28, 2024 CHANGE how you take these medications oxyCODONE 5 mg immediate release tablet; Commonly known as: Roxicodone; Take 2 tablets (10 mg) by mouth every 6 hours if needed for severe pain (7 - 10).; What changed: when to take this CONTINUE taking these medications diphenhydrAMINE 25 mg tablet; Commonly known as: Sominex; Take 1 tablet (25 mg) by mouth every 6 hours for 5 days. docusate sodium 100 mg capsule; Commonly known as: Colace; Take 1 capsule (100 mg) by mouth 2 times a day. FLUoxetine 60 mg tablet; Commonly known as: PROzac; Take 1 tablet (60 mg) by mouth once daily. hydrOXYzine HCL 25 mg tablet; Commonly known as: Atarax naloxone 4 mg/0.1 mL nasal spray; Commonly known as: Narcan; Administer 1 spray (4 mg) into affected nostril(s) if needed for opioid reversal. May repeat every 2-3 minutes if needed, alternating nostrils, until medical assistance becomes available. omeprazole [address] capsule; Commonly known as: PriLOSEC tiZANidine 2 mg capsule; Commonly known as: Zanaflex zolpidem 5 mg tablet; Commonly known as: Ambien; Take 1 tablet (5 mg) by mouth as needed at bedtime for sleep. STOP taking these medications chlorhexidine 0.12 % solution; Commonly known as: Peridex chlorhexidine 4 % external liquid; Commonly known as: Hibiclens methocarbamol 500 mg tablet; Commonly known as: Robaxin Test Results Pending At Discharge Pending Labs No current pending labs. Hospital Course 48-year-old female was admitted with acute on chronic back pain with radiation. Pain management wasconsulted and adjusted the patient's medications. PT/OT was also consulted. Patient was feeling much improved and was stable for discharge. New medications are noted as above. She will proceed with surgery as scheduled on 02/06/2024 for definitive treatment. Pertinent Physical Exam At Time of Discharge Physical Exam Constitutional: General: She is not in acute distress. Appearance: Normal appearance. HENT: Head: Normocephalic and atraumatic. Nose: Nose normal. Mouth/Throat: Mouth: Mucous membranes are moist. Pharynx: Oropharynx is clear. Cardiovascular: Rate and Rhythm: Normal rate and regular rhythm. Pulmonary: Effort: Pulmonary effort is normal. No respiratory distress. Breath sounds: Normal breath sounds. Abdominal: General: Bowel sounds are normal. Palpations: Abdomen is soft. Tenderness: There is no abdominal tenderness. There is no rebound. Musculoskeletal: General: No swelling, deformity or signs of injury. Cervical back: Normal range of motion and neck supple. Skin: General: Skin is warm and dry. Neurological: General: No focal deficit present. Mental Status: She is alert and oriented to person, place, and time. Mental status is at baseline. Psychiatric: Attention and Perception: Attention and perception normal. Mood and Affect: Mood normal. Behavior: Behavior normal. Judgment: Judgment normal. Outpatient Follow-Up Future Appointments Date Time Provider Department Center 01/29/2024 11:00 AM [facility] ROOM 03 [facility] 01/30/2024 9:00 AM Iveth Burger, HIM SPECIALIST-LEAD PROGRAMMER [id number] [place] 02/25/2024 11:00 AM Marlee Fitzpatrick MD [id number] [place] 03/10/2024 2:15 PM Judah Woodard MD [id number] [facility] 06/29/2024 8:00 AM Chidi Joseph MD [id number] [place] Time spent coordinating discharge was 32 minutes. Chirag Miguel MD documented in this [facility] Work Phone: 1([phone]) 316-221011-05-2024 Nurse Note* Curtis Mckenzie - 01/28/2024 8:46 AM EST Vitals done Breakfast was eaten Call light within reach [place]11-05-2024 Nurse Note* Edwina Lopez RN - 01/28/2024 7:45 AM EST 0745am Assumed care of pt, A/O x4 c/o pains 8/10 to low back no distress noted. Pt awake sitting upat side of bed with call light in reach. [place] Work Phone: [phone] 407-258311-05-2024 Nurse Note* Mellissa Chung RN - 01/28/2024 3:30 AM EST Patient resting in bed with eyes closed. Respirations even and unlabored. Call light is within reach and bed alarm is activated. [place]11-04-2024 Nurse Note* Mellissa Chung RN - 01/27/2024 11:24 PM EST Patient ambulated to restroom with walker. Void x 1. Returned to bed and positioned for comfort. Medicated with prn toradol for 6/10 low back pain. Vital signs stable. No other needs at this time. Call light is within reach and bed alarm is activated. [place] Work Phone: [phone] 636-493511-04-2024 Plan of care note* Care Plan - Mellissa Chung RN - 01/27/2024 8:02 PM EST The patient's goals for the shift include pain management The clinical goals for the shift include pain management, safety [facility] Work Phone: [phone]) 887-715511-04-2024 Miscellaneous Notes* Care Plan - Mellissa Chung RN - 01/27/2024 8:02 PM EST The patient's goals for the shift include pain management The clinical goals for the shift include pain management, safety * Care Plan - Iliana Fox RN - 01/27/2024 7:34 AM EST The patient's goals for the shift include pain management. The clinical goals for the shift include pain control. * Care Plan - Elke Gtz RN - 01/27/2024 5:19 AM EST The patient's goals for the shift include pain control. The clinical goals for the shift include pain control. Problem: Fall/Injury Goal: Not fall by end of shift Reactivated Problem: Fall/Injury Goal: Verbalize understanding of personal risk factors for fall in the hospital Reactivated Problem: Pain Goal: Walks with improved pain control throughout the shift Reactivated Problem: Pain Goal: Free from opioid side effects throughout the shift Reactivated [facility] Work Phone: 1([phone]) 370-439111-04-2024 Nurse Note* Mellissa Chung RN - 01/27/2024 7:30 PM EST Assumed care of patient. Report received from DARSHAN Barrientos. Patient lying in bed watching TV. Vital signs stable. Rates her chronic pain in the lower back an 8/10 and will be medicated per doctor's orders. No other stated needs at this time. Call light is within reach and bed alarm is activated. [facility] Work Phone: 1([phone]) 272-755611-04-2024 History of Present illness Narrative* Cristobal Churchill PT - 01/27/2024 3:36 PM EST Physical Therapy Therapy Communication Note Patient Name: Jerad Collins Department: [facility] Room: [address] [place] [address] Today's Date: 01/27/2024 Discipline: Physical Therapy Comment: PT eval orders received, chart reviewed, PT spoke with RN and MD. Pt reports she is getting in and out of bed and into the restroom without difficulty here in the hospital, using the RW, which is her baseline at home. Pt politely declined want/need for PT evaluation or intervention at thistime. Pt states she has 3 steps to enter her home with bilateral railings and she has been able to navigate those without difficulty. Everything at home is on one level. Pt states someone is always home with her between her father in law and her fiance, therefore she has assistance if needed. Pt has a planned spinal surgery for 02/05 at [facility]. PT discussed safety upon discharge home and patient reports she feels safe and does not have any concerns. No acute PT at this time per patient's request. Recommend discharge home with 24 hour supervision, use of RW, and follow up with her spine surgeon. Cristobal Churchill, PT, DPT * Vijay Maria MD - 01/27/2024 11:55 AM EST Jerad Collins is a 48 y.o. female on day 0 of admission presenting with Lumbar radiculopathy, acute. Subjective Patient reports her lumbar low back pain is an 8 on a scale of 0-10. It is worse when she tries to sit up and she is not been able to stand because of the pain. Pain and numbness radiating down her entire left leg. She has no weakness of the left leg. She reports bowel movements and urinating normally. Objective Last Recorded Vitals BP 158/86 (BP Location: Left arm, Patient Position: Lying) Pulse 73 Temp 36.1 C (97 F) (Temporal) Resp 16 Wt 113 kg (250 lb) SpO2 100% Intake/Output last 3 Shifts: Intake/Output Summary (Last 24 hours) at 01/27/2024 1155 Last data filed at 01/27/2024 0900 Gross per 24 hour Intake 0 ml Output 200 ml Net -200 ml Admission Weight Weight: 113 kg (250 lb) (01/27/24 0346) Daily Weight 01/27/24 : 113 kg (250 lb) Image Results MR lumbar spine wo IV contrast Narrative: Interpreted By: Bernadette Tapia, STUDY: MR LUMBAR SPINE WO IV CONTRAST; 01/10/2024 8:51 pm INDICATION: Signs/Symptoms:left leg numbness, lower extremity weakness. COMPARISON: MRI of the lumbar spine dated 01/01/2024; 12/18/2023; 10/31/2023;. ACCESSION NUMBER(S): [id number] ORDERING CLINICIAN: GERMAINE BLAIR TECHNIQUE: Sagittal T1, T2, STIR, axial T1 and T2 weighted images of the lumbar spine were acquired. FINDINGS: Exam is somewhat degraded by motion. Lumbar vertebral alignment is maintained, without evidence of new spondylolisthesis. Lumbar vertebral body heights are preserved, without evidence of new compression fractures. No new signal abnormalities are present in the posterior elements of the lumbar spine. Marrow signal is within normal limits without evidence of new STIR hyperintense edema. There is redemonstration of bvtg-jn-[id number] disc height loss at the level of L4-L5, with intervertebral disc space is preserved at other levels. Lower thoracic spinal cord unremarkable in appearance. Conus medullaris terminates at the level of L1-L2. There is redemonstration of circumferential disc bulge with superimposed left subarticular disc protrusion at the level of L4-L5 which contributes to [id number] spinal canal and mild left-sided neural foraminal narrowing, unchanged in appearance to prior exams. This herniation again likely abuts and effaces the traversing left L4 nerve. No new posterior disc contour abnormality is identified in the lumbar spine. No new spinal canal or neural foraminal stenosis is present in the interim since prior exams. There is ongoing interval improvement in scarring and soft tissue edema in the superficial fat overlying the lumbar spine without evidence of new/acute abnormality within the paraspinal musculature. Impression: 1. Unchanged circumferential disc bulge with superimposed left subarticular disc herniation at the level of L4-L5, contributing to [id number]-kt-[id number] spinal canal and mild left-sided neural foraminal narrowing and likely abutment/effacement of the traversing left L5 nerve. 2. No new abnormality is identified in the lumbar spine in the interim to recent MRI on 01/01/2024. No new posterior disc contour abnormality or spinal canal stenosis is present. MACRO: None Signed by: Bernadette Tapia 01/10/2024 9:34 PM Dictation workstation: [id number] Physical Exam Constitutional: Appearance: Normal appearance. HENT: Head: Normocephalic and atraumatic. Nose: Nose normal. Mouth/Throat: Mouth: Mucous membranes are moist. Pharynx: Oropharynx is clear. Eyes: Extraocular Movements: Extraocular movements intact. Conjunctiva/sclera: Conjunctivae normal. Pupils: Pupils are equal, round, and reactive to light. Cardiovascular: Rate and Rhythm: Normal rate and regular rhythm. Pulses: Normal pulses. Heart sounds: Normal heart sounds. Pulmonary: Effort: Pulmonary effort is normal. Breath sounds: Normal breath sounds. Abdominal: General: Abdomen is flat. Bowel sounds are normal. Palpations: Abdomen is soft. Tenderness: There is no abdominal tenderness. Musculoskeletal: General: Normal range of motion. Cervical back: Normal range of motion and neck supple. Skin: General: Skin is warm and dry. Neurological: General: No focal deficit present. Mental Status: She is alert and oriented to person, place, and time. Comments: Straight leg raise is positive at 10 degrees left lower extremity. Straight leg raise is negative right lower extremity Psychiatric: Mood and Affect: Mood normal. Behavior: Behavior normal. Thought Content: Thought content normal. Relevant Results Assessment/Plan Assessment & Plan Back pain with radiation Morbid obesity (Multi) Lumbar radiculopathy, acute Chronic pain syndrome Lumbar radiculopathy Patient has severe left lower extremity lumbar radiculopathy symptoms and known herniated L4-L5 disc. She has an acute flare of her chronic pain. She will be treated with maximal treatment with IV Dilaudid, IV Toradol, muscle relaxants, Lidoderm patch, Topamax as recommended by neurosurgery. She has severe limitation of mobility at this time and is unable to ambulate. Physical therapy Occupational Therapy are consulted. Plan for further evaluation and treatment per neurosurgery. Chronic pain syndrome Patient is on oxycodone 40 mg total daily. Morphine equivalent is 24. She will require higher dose with opiate tolerance and dependence. Will prescribe Dilaudid 1 mg every 6 hours she is 28 morphine equivalents so slightly higher dose than baseline. Patient advised to alternate with Toradol as needed and attempt to taper to oral medications as ordered. Morbid obesity This is a component to the patient's chronic and acute medical problems. Weight loss is recommended. Vijay Maria MD * Jadon Song RN - 01/27/2024 11:25 AM EST TCC met with patient at the bedside to complete assessment. 48 yr old female admitted observation for severe/chronic back pain. Treatment includes; pain control, Pain Management consult and (MRI lumbar spine?) Pt states that she is independent with care for the most part, but sometimes needs assistance with getting out of the bed and mobility when the pain is too severe. Has surgery scheduled on 02/06/24 with Neurosurgeon in [facility] to remove herniated/Bulging discs. TCC anticipates home with no skilled needs when medically clear. 01/27/24 1125 Discharge Planning Living Arrangements Spouse/significant other Support Systems Family members Assistance Needed transportation Type of Residence Private residence Number of Stairs to Enter Residence 3 Number of Stairs Within Residence 0 Do you have animals or pets at home? Yes Type of Animals or Pets 2 dogs Home or Post Acute Services None Expected Discharge Disposition Home * Cristobal Churchill, PT - 01/27/2024 11:00 AM EST Physical Therapy Therapy Communication Note Patient Name: Jerad Collins Department: [facility] Room: [address] [place] [address] Today's Date: 01/27/2024 Discipline: Physical Therapy Comment: PT eval orders received, however patient is awaiting pain management consult. PT will waitto see what the plan is from pain management team prior to proceeding with PT hany. Cristobal Churchill, PT, DPT [facility] Work Phone: 1([phone]) 171-561611-04-2024 Nurse Note* Iliana Fox RN - 01/27/2024 3:30 PM EST Patient states she can tolerate a pain level of 7 Medicated as per request and order for pain.Refused to participate with physical therapy. [facility]11-04-2024 Nurse Note* Iliana Fox RN - 01/27/2024 10:52 AM EST Pain management in to see patient and will discuss pain medication for management. [facility] Work Phone: 1([phone]) 369-864411-04-2024 Consult note* Jia Nichols MD - 01/27/2024 10:44 AM ESTAssociated Order(s): IP CONSULT TO PAIN MANAGEMENT Subjective Reason For Consult Acute on chronic low back pain History Of Present Illness Karina Tracy is a 48 y.o. female with a history of morbid obesity, hepatitis C (treated) with stage III liver dysfunction, smoking, chronic low back pain with bilateral lumbar radiculopathy (right worse than left) s/p spinal cord stimulator implant by Dr. Adams (neurosurgeon) on 09/23/2023 C/B subcutaneous seroma (most likely hematoma, as wound cultures were negative) and subsequent removal of the SCS lead and generator on 10/14/2023, new lumbar radiculopathy symptoms in the left lower extremity in the L5 dermatomal distribution likely due to left L4-L5 paracentral disc herniation with severe stenosis of the left lateral recess and compression of the L5 nerve root, now presenting with acute exacerbation of her left lower extremity lumbar radicular pain. Pain is described as intense burning/tingling traveling posterior laterally from the back through the left buttock, thigh, and leg. She denies any loss of bladder or bowel control at this time, or any perianal numbness or tingling. There is also associated numbness in this distribution, as well as weakness in the left lower extremity. Patient is unable to identify any triggering factors for this pain, and is already following Dr. Judah Woodard (neurosurgery) for surgical management of this pain. She is scheduled for minimally invasive left L4-5 hemilaminotomy and microdiscectomy on 02/06/2024, and has been on a oxycodone 10 mg Motrin 800 mg as needed for the pain until then. Patient is unable to use acetaminophen due to her liver dysfunction, states that she developed migraine headaches with gabapentin that needed to be treated with topiramate until the gabapentin was stopped, and states that she developed bilateral leg swelling with pregabalin. She states that she previously tolerated topiramate okay, and meloxicam as well. Past Medical History She has a past medical history of Anxiety, Arthritis, Bipolar disorder, Chronic pain disorder, Depression, HCV (hepatitis C virus) (2013), Herniated lumbar intervertebral disc, Liver disease, Neuropathic pain, Obesity, and Vision loss. Surgical History She has a past surgical history that includes Cholecystectomy; Hysterectomy; Tonsillectomy; Myringotomy w/ tubes (Bilateral); Dental surgery (Bilateral); Bunionectomy (Bilateral); Colonoscopy; Adenoidectomy; Spinal cord stimulator removal (10/14/2023); Spinal cord stimulator implant (09/23/2023); and Spinal cord stimulator trial w/ laminotomy (08/21/2023). Social History She reports that she has been smoking cigarettes. She started smoking about 32 years ago. She has a16.4 pack-year smoking history. She has never used smokeless tobacco. She reports that she does notcurrently use drugs. She reports that she does not drink alcohol. Family History Family History Problem Relation Name Age of Onset Lung disease Mother COPD Mother Lung disease Father Lung cancer Father Heart disease Father Allergies Penicillins, Gabapentin, Tylenol [acetaminophen], and Nabumetone Review of Systems 13-point ROS done and negative except as above. Objective Physical Exam General: NAD, well groomed, well nourished Eyes: Non-icteric sclera, EOMI Ears, Nose, Mouth, and Throat: External ears and nose appear to be without deformity or rash. No lesions or masses noted. Hearing is grossly intact. Neck: Trachea midline Respiratory: Nonlabored breathing Cardiovascular: no peripheral edema Skin: No rashes or open lesions/ulcers identified on skin. Back: Palpation: Tenderness to palpation over lumbar paraspinous muscles. Straight leg raise: positive at 15 degrees on the left Neurologic: Cranial nerves grossly intact. Strength 5/5 and symmetric plantar/dorsiflexion Sensation: Normal to light touch throughout, pinprick intact throughout; slightly diminished in theleft lower extremity. DTRs:normal and symmetric throughout Psychiatric: Alert, orientation to person, place, and time. Cooperative. Last Recorded Vitals Blood pressure 158/86, pulse 73, temperature 36.1 C (97 F), temperature source Temporal, resp. rate16, height 1.6 m (5' 3 ), weight 113 kg (250 lb), SpO2 100%. Relevant Results Imaging personally reviewed and independently interpreted: MR lumbar spine wo IV contrast 01/10/2024 Narrative Interpreted By: Bernadette Tapia, STUDY: MR LUMBAR SPINE WO IV CONTRAST; 01/10/2024 8:51 pm INDICATION: Signs/Symptoms:left leg numbness, lower extremity weakness. COMPARISON: MRI of the lumbar spine dated 01/01/2024; 12/18/2023; 10/31/2023;. ACCESSION NUMBER(S): [id number] ORDERING CLINICIAN: GERMAINE BLAIR TECHNIQUE: Sagittal T1, T2, STIR, axial T1 and T2 weighted images of the lumbar spine were acquired. FINDINGS: Exam is somewhat degraded by motion. Lumbar vertebral alignment is maintained, without evidence of new spondylolisthesis. Lumbar vertebral body heights are preserved, without evidence of new compression fractures. No new signal abnormalities are present in the posterior elements of the lumbar spine. Marrow signal is within normal limits without evidence of new STIR hyperintense edema. There is redemonstration of tkxv-or-oihuwlqu disc height loss at the level of L4-L5, with intervertebral disc space is preserved at other levels. Lower thoracic spinal cord unremarkable in appearance. Conus medullaris terminates at the level of L1-L2. There is redemonstration of circumferential disc bulge with superimposed left subarticular disc protrusion at the level of L4-L5 which contributes to xhwy-dw-dkiyyxgu spinal canal and mild left-sided neural foraminal narrowing, unchanged in appearance to prior exams. This herniation again likely abuts and effaces the traversing left L4 nerve. No new posterior disc contour abnormality is identified in the lumbar spine. No new spinal canal or neural foraminal stenosis is present in the interim since prior exams. There is ongoing interval improvement in scarring and soft tissue edema in the superficial fat overlying the lumbar spine without evidence of new/acute abnormality within the paraspinal musculature. Impression 1. Unchanged circumferential disc bulge with superimposed left subarticular disc herniation at the level of L4-L5, contributing to uvkz-pi-mqdmwoqu spinal canal and mild left-sided neural foraminal narrowing and likely abutment/effacement of the traversing left L5 nerve. 2. No new abnormality is identified in the lumbar spine in the interim to recent MRI on 01/01/2024. No new posterior disc contour abnormality or spinal canal stenosis is present. MACRO: None Signed by: Bernadette Tapia 01/10/2024 9:34 PM Dictation workstation: [id number] No image results found. No diagnosis found. Assessment/Plan Assessment: Karina Tracy is a 48 y.o. female with a history of morbid obesity, hepatitis C (treated) with stage III liver dysfunction, smoking, chronic low back pain with bilateral lumbar radiculopathy (right worse than left) s/p spinal cord stimulator implant by Dr. Adams (neurosurgeon) on 09/23/2023 C/B subcutaneous seroma (most likely hematoma, as wound cultures were negative) and subsequent removal of the SCS lead and generator on 10/14/2023, new lumbar radiculopathy symptoms in the left lower extremity in the L5 dermatomal distribution likely due to left L4-L5 paracentral disc herniation with severe stenosis of the left lateral recess and compression of the L5 nerve root, now presenting with acute exacerbation of her left lower extremity lumbar radicular pain. Patient's condition is severe enough for her to require surgery, and she has already been scheduled for minimallyinvasive hemilaminotomy and microdiscectomy of the left L4-L5 level with Dr. Woodard on 02/06/2024. We would avoid administering steroids or interventions at this time, so as to avoid any potential complications or delay her definitive treatment with surgery. Therefore, we recommend continued treatmentwith oral medications, with IV breakthrough as needed while inpatient, and the patient can take oral medications as needed at home. It is noted that the patient cannot take acetaminophen, gabapentin,or pregabalin due to side effect profile as noted in HPI. Chronic opioid use for non-cancer pain has the deleterious effects of respiratory suppression, endocrine dysfunction, osteoporosis, immunosuppression including increased cancer risk, sexual dysfunction, dependence, addiction, , and paradoxically worsening pain; however, the patient may benefit from them in the short-term. Recommendations: - Start topiramate 25 mg nightly for 3 nights, and then increase to 25 mg twice daily for a week. - Consider starting duloxetine 30 mg daily in the future after her surgery. - Okay to to continue Toradol IV while inpatient. Consider continuing meloxicam outpatient. - Okay to continue oxycodone 10 mg every 6 hours as needed pain. - We will recommend Dilaudid 0.5 mg IV every 3 hours as needed breakthrough pain while inpatient. - We agree with bowel regimen especially while on narcotics per primary team. I spent 30 minutes in the professional and overall care of this patient. Jia Nichols MD Interventional Pain Medicine Fellow [facility] This note was generated with the aid of dictation software, there may be typographical errors despite my attempts at proofreading. Cosigned by Drake Kenyon MD PhD at 01/27/2024 1:05 PM EST [facility] Work Phone: 1(970) 210-915411-04-2024 Consult note* Jia Nichols MD - 01/27/2024 10:44 AM ESTAssociated Order(s): IP CONSULT TO PAIN MANAGEMENT Subjective Reason For Consult Acute on chronic low back pain History Of Present Illness Karina Tracy is a 48 y.o. female with a history of morbid obesity, hepatitis C (treated) with stage III liver dysfunction, smoking, chronic low back pain with bilateral lumbar radiculopathy (right worse than left) s/p spinal cord stimulator implant by Dr. Adams (neurosurgeon) on 09/23/2023 C/B subcutaneous seroma (most likely hematoma, as wound cultures were negative) and subsequent removal of the SCS lead and generator on 10/14/2023, new lumbar radiculopathy symptoms in the left lower extremity in the L5 dermatomal distribution likely due to left L4-L5 paracentral disc herniation with severe stenosis of the left lateral recess and compression of the L5 nerve root, now presenting with acute exacerbation of her left lower extremity lumbar radicular pain. Pain is described as intense burning/tingling traveling posterior laterally from the back through the left buttock, thigh, and leg. She denies any loss of bladder or bowel control at this time, or any perianal numbness or tingling. There is also associated numbness in this distribution, as well as weakness in the left lower extremity. Patient is unable to identify any triggering factors for this pain, and is already following Dr. Judah Woodard (neurosurgery) for surgical management of this pain. She is scheduled for minimally invasive left L4-5 hemilaminotomy and microdiscectomy on 02/06/2024, and has been on a oxycodone 10 mg Motrin 800 mg as needed for the pain until then. Patient is unable to use acetaminophen due to her liver dysfunction, states that she developed migraine headaches with gabapentin that needed to be treated with topiramate until the gabapentin was stopped, and states that she developed bilateral leg swelling with pregabalin. She states that she previously tolerated topiramate okay, and meloxicam as well. Past Medical History She has a past medical history of Anxiety, Arthritis, Bipolar disorder, Chronic pain disorder, Depression, HCV (hepatitis C virus) (2013), Herniated lumbar intervertebral disc, Liver disease, Neuropathic pain, Obesity, and Vision loss. Surgical History She has a past surgical history that includes Cholecystectomy; Hysterectomy; Tonsillectomy; Myringotomy w/ tubes (Bilateral); Dental surgery (Bilateral); Bunionectomy (Bilateral); Colonoscopy; Adenoidectomy; Spinal cord stimulator removal (10/14/2023); Spinal cord stimulator implant (09/23/2023); and Spinal cord stimulator trial w/ laminotomy (08/21/2023). Social History She reports that she has been smoking cigarettes. She started smoking about 32 years ago. She has a16.4 pack-year smoking history. She has never used smokeless tobacco. She reports that she does notcurrently use drugs. She reports that she does not drink alcohol. Family History Family History Problem Relation Name Age of Onset Lung disease Mother COPD Mother Lung disease Father Lung cancer Father Heart disease Father Allergies Penicillins, Gabapentin, Tylenol [acetaminophen], and Nabumetone Review of Systems 13-point ROS done and negative except as above. Objective Physical Exam General: NAD, well groomed, well nourished Eyes: Non-icteric sclera, EOMI Ears, Nose, Mouth, and Throat: External ears and nose appear to be without deformity or rash. No lesions or masses noted. Hearing is grossly intact. Neck: Trachea midline Respiratory: Nonlabored breathing Cardiovascular: no peripheral edema Skin: No rashes or open lesions/ulcers identified on skin. Back: Palpation: Tenderness to palpation over lumbar paraspinous muscles. Straight leg raise: positive at 15 degrees on the left Neurologic: Cranial nerves grossly intact. Strength 5/5 and symmetric plantar/dorsiflexion Sensation: Normal to light touch throughout, pinprick intact throughout; slightly diminished in theleft lower extremity. DTRs:normal and symmetric throughout Psychiatric: Alert, orientation to person, place, and time. Cooperative. Last Recorded Vitals Blood pressure 158/86, pulse 73, temperature 36.1 C (97 F), temperature source Temporal, resp. rate16, height 1.6 m (5' 3 ), weight 113 kg (250 lb), SpO2 100%. Relevant Results Imaging personally reviewed and independently interpreted: MR lumbar spine wo IV contrast 01/10/2024 Narrative Interpreted By: Bernadette Tapia, STUDY: MR LUMBAR SPINE WO IV CONTRAST; 01/10/2024 8:51 pm INDICATION: Signs/Symptoms:left leg numbness, lower extremity weakness. COMPARISON: MRI of the lumbar spine dated 01/01/2024; 12/18/2023; 10/31/2023;. ACCESSION NUMBER(S): [id number] ORDERING CLINICIAN: GERMAINE BLAIR TECHNIQUE: Sagittal T1, T2, STIR, axial T1 and T2 weighted images of the lumbar spine were acquired. FINDINGS: Exam is somewhat degraded by motion. Lumbar vertebral alignment is maintained, without evidence of new spondylolisthesis. Lumbar vertebral body heights are preserved, without evidence of new compression fractures. No new signal abnormalities are present in the posterior elements of the lumbar spine. Marrow signal is within normal limits without evidence of new STIR hyperintense edema. There is redemonstration of xjfq-aj-owdcbdmq disc height loss at the level of L4-L5, with intervertebral disc space is preserved at other levels. Lower thoracic spinal cord unremarkable in appearance. Conus medullaris terminates at the level of L1-L2. There is redemonstration of circumferential disc bulge with superimposed left subarticular disc protrusion at the level of L4-L5 which contributes to ysrw-vj-zmoppeor spinal canal and mild left-sided neural foraminal narrowing, unchanged in appearance to prior exams. This herniation again likely abuts and effaces the traversing left L4 nerve. No new posterior disc contour abnormality is identified in the lumbar spine. No new spinal canal or neural foraminal stenosis is present in the interim since prior exams. There is ongoing interval improvement in scarring and soft tissue edema in the superficial fat overlying the lumbar spine without evidence of new/acute abnormality within the paraspinal musculature. Impression 1. Unchanged circumferential disc bulge with superimposed left subarticular disc herniation at the level of L4-L5, contributing to ugby-ce-gylxegrp spinal canal and mild left-sided neural foraminal narrowing and likely abutment/effacement of the traversing left L5 nerve. 2. No new abnormality is identified in the lumbar spine in the interim to recent MRI on 01/01/2024. No new posterior disc contour abnormality or spinal canal stenosis is present. MACRO: None Signed by: Bernadette Tapia 01/10/2024 9:34 PM Dictation workstation: [id number] No image results found. No diagnosis found. Assessment/Plan Assessment: Karina Tracy is a 48 y.o. female with a history of morbid obesity, hepatitis C (treated) with stage III liver dysfunction, smoking, chronic low back pain with bilateral lumbar radiculopathy (right worse than left) s/p spinal cord stimulator implant by Dr. Adams (neurosurgeon) on 09/23/2023 C/B subcutaneous seroma (most likely hematoma, as wound cultures were negative) and subsequent removal of the SCS lead and generator on 10/14/2023, new lumbar radiculopathy symptoms in the left lower extremity in the L5 dermatomal distribution likely due to left L4-L5 paracentral disc herniation with severe stenosis of the left lateral recess and compression of the L5 nerve root, now presenting with acute exacerbation of her left lower extremity lumbar radicular pain. Patient's condition is severe enough for her to require surgery, and she has already been scheduled for minimallyinvasive hemilaminotomy and microdiscectomy of the left L4-L5 level with Dr. Woodard on 02/06/2024. We would avoid administering steroids or interventions at this time, so as to avoid any potential complications or delay her definitive treatment with surgery. Therefore, we recommend continued treatmentwith oral medications, with IV breakthrough as needed while inpatient, and the patient can take oral medications as needed at home. It is noted that the patient cannot take acetaminophen, gabapentin,or pregabalin due to side effect profile as noted in HPI. Chronic opioid use for non-cancer pain has the deleterious effects of respiratory suppression, endocrine dysfunction, osteoporosis, immunosuppression including increased cancer risk, sexual dysfunction, dependence, addiction, , and paradoxically worsening pain; however, the patient may benefit from them in the short-term. Recommendations: - Start topiramate 25 mg nightly for 3 nights, and then increase to 25 mg twice daily for a week. - Consider starting duloxetine 30 mg daily in the future after her surgery. - Okay to to continue Toradol IV while inpatient. Consider continuing meloxicam outpatient. - Okay to continue oxycodone 10 mg every 6 hours as needed pain. - We will recommend Dilaudid 0.5 mg IV every 3 hours as needed breakthrough pain while inpatient. - We agree with bowel regimen especially while on narcotics per primary team. I spent 30 minutes in the professional and overall care of this patient. Jia Nichols MD Interventional Pain Medicine Fellow [facility] This note was generated with the aid of dictation software, there may be typographical errors despite my attempts at proofreading. Cosigned by Drake Kenyon MD PhD at 01/27/2024 1:05 PM EST documented in this [facility] Work Phone: 1(134) 455-309711-04-2024 Nurse Note* Iliana Fox RN - 01/27/2024 7:58 AM EST Pain level listed at 7/10 for lower back discomfort.Patient states this is a tolerable pain level for her. [place] Work Phone: 1(186) 873-297511-04-2024 Plan of care note* Care Plan - Iliana Fox RN - 01/27/2024 7:34 AM EST The patient's goals for the shift include pain management. The clinical goals for the shift include pain control. [facility] Work Phone: [phone]) 764-624611-04-2024 Nurse Note* Curtis Mckenzie - 01/27/2024 7:10 AM EST Vitals done Currently NPO Call light within reach [place] Work Phone: 1(148) 386-786311-04-2024 Plan of care note* Care Plan - Elke Gtz RN - 01/27/2024 5:19 AM EST The patient's goals for the shift include pain control. The clinical goals for the shift include pain control. Problem: Fall/Injury Goal: Not fall by end of shift Reactivated Problem: Fall/Injury Goal: Verbalize understanding of personal risk factors for fall in the hospital Reactivated Problem: Pain Goal: Walks with improved pain control throughout the shift Reactivated Problem: Pain Goal: Free from opioid side effects throughout the shift Reactivated [place] Work Phone: [phone] 835-591411-04-2024 History and physical note* Chirag Miguel MD - 01/27/2024 4:26 AM EST History Of Present Illness Jerad Collins is a 48 y.o. female presenting with acute on chronic back pain with radiation.Patient states that she actually has surgery scheduled for 02/06/2024, but her pain was unbearable.Has been using oxycodone for the pain, which is insufficient. Currently rates her pain 8 out of 10.She presented initially to [facility] ED and had a negative workup. Pain management was consulted, and patient was transferred to [facility] for consultation. Patient denies any new complaints regarding her back pain other than worsening severity. Does state that she has weakness of the left lower extremity and numbness down the anterior leg, but these are not new symptoms. No incontinence or fevers. Patient does report that she had a spinal stimulator placed this summer, but unfortunately it had to be removed a few weeks later. Vital signs are stable at the time of transfer. Past Medical History Past Medical History: Diagnosis Date Anxiety Arthritis Bipolar disorder Chronic pain disorder Depression HCV (hepatitis C virus) 2013 treated and resolved Herniated lumbar intervertebral disc Liver disease stage 3 - stable Neuropathic pain Plan: Thoracic Laminectomy for Spinal Cord Stimulator Leads; Generator Implant 11/21/23 Obesity Vision loss Surgical History Past Surgical History: Procedure Laterality Date ADENOIDECTOMY BUNIONECTOMY Bilateral CHOLECYSTECTOMY COLONOSCOPY DENTAL SURGERY Bilateral all teeth removed, dentures HYSTERECTOMY MYRINGOTOMY W/ TUBES Bilateral SPINAL CORD STIMULATOR IMPLANT 09/23/2023 Percutaneous Thoracic Spinal Cord Stimulator Leads and Generator Placement SPINAL CORD STIMULATOR REMOVAL 10/14/2023 SPINAL CORD STIMULATOR TRIAL W/ LAMINOTOMY 08/21/2023 Percutaneous Thoracic Spinal Cord Stimulator Trial TONSILLECTOMY Social History She reports that she has been smoking cigarettes. She started smoking about 32 years ago. She has a16.4 pack-year smoking history. She has never used smokeless tobacco. She reports that she does notcurrently use drugs. She reports that she does not drink alcohol. Family History Family History Problem Relation Name Age of Onset Lung disease Mother COPD Mother Lung disease Father Lung cancer Father Heart disease Father Allergies Penicillins, Gabapentin, Tylenol [acetaminophen], and Nabumetone Review of Systems All other systems reviewed and are negative. Physical Exam Constitutional: General: She is not in acute distress. Appearance: Normal appearance. HENT: Head: Normocephalic and atraumatic. Nose: Nose normal. Mouth/Throat: Mouth: Mucous membranes are moist. Pharynx: Oropharynx is clear. Cardiovascular: Rate and Rhythm: Normal rate and regular rhythm. Pulmonary: Effort: Pulmonary effort is normal. No respiratory distress. Breath sounds: Normal breath sounds. Abdominal: General: Bowel sounds are normal. Palpations: Abdomen is soft. Tenderness: There is no abdominal tenderness. There is no rebound. Musculoskeletal: General: No swelling, deformity or signs of injury. Cervical back: Normal range of motion and neck supple. Skin: General: Skin is warm and dry. Neurological: General: No focal deficit present. Mental Status: She is alert and oriented to person, place, and time. Mental status is at baseline. Sensory: Sensory deficit present. Motor: Weakness present. Psychiatric: Attention and Perception: Attention and perception normal. Mood and Affect: Mood normal. Behavior: Behavior normal. Judgment: Judgment normal. Last Recorded Vitals Blood pressure 135/54, pulse 76, temperature 36.4 C (97.5 F), temperature source Temporal, resp. rate 20, height 1.6 m (5' 3 ), weight 113 kg (250 lb), SpO2 97%. Relevant Results MR lumbar spine wo IV contrast Result Date: 01/10/2024 Interpreted By: Bernadette Tapia, STUDY: MR LUMBAR SPINE WO IV CONTRAST; 01/10/2024 8:51 pm INDICATION: Signs/Symptoms:left leg numbness, lower extremity weakness. COMPARISON: MRI of the lumbar spine dated 01/01/2024; 12/18/2023; 10/31/2023;. ACCESSION NUMBER(S): [id number] ORDERING CLINICIAN: GERMAINE BLAIR TECHNIQUE: Sagittal T1, T2, STIR, axial T1 and T2 weighted images of the lumbar spine were acquired. FINDINGS: Exam is somewhat degraded by motion. Lumbar vertebral alignment ismaintained, without evidence of new spondylolisthesis. Lumbar vertebral body heights are preserved,without evidence of new compression fractures. No new signal abnormalities are present in the posterior elements of the lumbar spine. Marrow signal is within normal limits without evidence of new STIR hyperintense edema. There is redemonstration of kqxo-lt-tazulrfk disc height loss at the level of L4-L5, with intervertebral disc space is preserved at other levels. Lower thoracic spinal cord unremarkable in appearance. Conus medullaris terminates at the level of L1-L2. There is redemonstration of circumferential disc bulge with superimposed left subarticular disc protrusion at the level of L4-L5 which contributes to ayjg-rt-zpyfitxg spinal canal and mild left-sided neural foraminal narrowing, unchanged in appearance to prior exams. This herniation again likely abuts and effaces the traversing left L4 nerve. No new posterior disc contour abnormality is identified in the lumbar spine. No new spinal canal or neural foraminal stenosis is present in the interim since prior exams. There is ongoing interval improvement in scarring and soft tissue edema in the superficial fat overlying the lumbar spine without evidence of new/acute abnormality within the paraspinal musculature. 1. Unchanged circumferential disc bulge with superimposed left subarticular disc herniation at the level of L4-L5, contributing to kmkc-hv-pkvirffo spinal canal and mild left-sided neural foraminal narrowing and likely abutment/effacement of the traversing left L5 nerve. 2. No new abnormality is identified in the lumbar spine in the interim to recent MRI on 01/01/2024. No new posterior disc contour abnormality or spinal canal stenosis is present. MACRO: None Signed by: Bernadette Tapia 01/10/2024 9:34 PM Dictation workstation: [id number] Results for orders placed or performed during the hospital encounter of 01/26/24 (from the past 24 hours) Comprehensive metabolic panel Result Value Ref Range Glucose 106 (H) 74 - 99 mg/dL Sodium 140 136 - 145 mmol/L Potassium 4.3 3.5 - 5.3 mmol/L Chloride 108 (H) 98 - 107 mmol/L Bicarbonate 23 21 - 32 mmol/L Anion Gap 13 10 - 20 mmol/L Urea Nitrogen 17 6 - 23 mg/dL Creatinine 0.78 0.50 - 1.05 mg/dL eGFR >90 >60 mL/min/1.73m*2 Calcium 9.0 8.6 - 10.3 mg/dL Albumin 4.3 3.4 - 5.0 g/dL Alkaline Phosphatase 93 33 - 110 U/L Total Protein 7.3 6.4 - 8.2 g/dL AST 20 9 - 39 U/L Bilirubin, Total 0.3 0.0 - 1.2 mg/dL ALT 17 7 - 45 U/L CBC and Auto Differential Result Value Ref Range WBC 11.0 4.4 - 11.3 x10*3/uL nRBC 0.0 0.0 - 0.0 /100 WBCs RBC 4.53 4.00 - 5.20 x10*6/uL Hemoglobin 13.6 12.0 - 16.0 g/dL Hematocrit 42.1 36.0 - 46.0 % MCV 93 80 - 100 fL MCH 30.0 26.0 - 34.0 pg MCHC 32.3 32.0 - 36.0 g/dL RDW 13.4 11.5 - 14.5 % Platelets 430 150 - 450 x10*3/uL Neutrophils % 82.3 40.0 - 80.0 % Immature Granulocytes %, Automated 0.3 0.0 - 0.9 % Lymphocytes % 11.4 13.0 - 44.0 % Monocytes % 4.6 2.0 - 10.0 % Eosinophils % 1.3 0.0 - 6.0 % Basophils % 0.1 0.0 - 2.0 % Neutrophils Absolute 9.03 (H) 1.20 - 7.70 x10*3/uL Immature Granulocytes Absolute, Automated 0.03 0.00 - 0.70 x10*3/uL Lymphocytes Absolute 1.25 1.20 - 4.80 x10*3/uL Monocytes Absolute 0.50 0.10 - 1.00 x10*3/uL Eosinophils Absolute 0.14 0.00 - 0.70 x10*3/uL Basophils Absolute 0.01 0.00 - 0.10 x10*3/uL Assessment/Plan Assessment & Plan Back pain with radiation Continue patient's home medications and add IV morphine as needed for breakthrough pain. Will consult Pain Management and keep patient NPO in the interim. MRI from 01/10/24 reviewed, unchanged. SCDs for DVT ppx. Chirag Miguel MD [facility] Work Phone: [phone]) 941-855711-04-2024 History and physical note* Chirag Miguel MD - 01/27/2024 4:26 AM EST History Of Present Illness Jerad Collins is a 48 y.o. female presenting with acute on chronic back pain with radiation.Patient states that she actually has surgery scheduled for 02/06/2024, but her pain was unbearable.Has been using oxycodone for the pain, which is insufficient. Currently rates her pain 8 out of 10.She presented initially to [facility] ED and had a negative workup. Pain management was consulted, and patient was transferred to [facility] for consultation. Patient denies any new complaints regarding her back pain other than worsening severity. Does state that she has weakness of the left lower extremity and numbness down the anterior leg, but these are not new symptoms. No incontinence or fevers. Patient does report that she had a spinal stimulator placed this summer, but unfortunately it had to be removed a few weeks later. Vital signs are stable at the time of transfer. Past Medical History Past Medical History: Diagnosis Date Anxiety Arthritis Bipolar disorder Chronic pain disorder Depression HCV (hepatitis C virus) 2013 treated and resolved Herniated lumbar intervertebral disc Liver disease stage 3 - stable Neuropathic pain Plan: Thoracic Laminectomy for Spinal Cord Stimulator Leads; Generator Implant 11/21/23 Obesity Vision loss Surgical History Past Surgical History: Procedure Laterality Date ADENOIDECTOMY BUNIONECTOMY Bilateral CHOLECYSTECTOMY COLONOSCOPY DENTAL SURGERY Bilateral all teeth removed, dentures HYSTERECTOMY MYRINGOTOMY W/ TUBES Bilateral SPINAL CORD STIMULATOR IMPLANT 09/23/2023 Percutaneous Thoracic Spinal Cord Stimulator Leads and Generator Placement SPINAL CORD STIMULATOR REMOVAL 10/14/2023 SPINAL CORD STIMULATOR TRIAL W/ LAMINOTOMY 08/21/2023 Percutaneous Thoracic Spinal Cord Stimulator Trial TONSILLECTOMY Social History She reports that she has been smoking cigarettes. She started smoking about 32 years ago. She has a16.4 pack-year smoking history. She has never used smokeless tobacco. She reports that she does notcurrently use drugs. She reports that she does not drink alcohol. Family History Family History Problem Relation Name Age of Onset Lung disease Mother COPD Mother Lung disease Father Lung cancer Father Heart disease Father Allergies Penicillins, Gabapentin, Tylenol [acetaminophen], and Nabumetone Review of Systems All other systems reviewed and are negative. Physical Exam Constitutional: General: She is not in acute distress. Appearance: Normal appearance. HENT: Head: Normocephalic and atraumatic. Nose: Nose normal. Mouth/Throat: Mouth: Mucous membranes are moist. Pharynx: Oropharynx is clear. Cardiovascular: Rate and Rhythm: Normal rate and regular rhythm. Pulmonary: Effort: Pulmonary effort is normal. No respiratory distress. Breath sounds: Normal breath sounds. Abdominal: General: Bowel sounds are normal. Palpations: Abdomen is soft. Tenderness: There is no abdominal tenderness. There is no rebound. Musculoskeletal: General: No swelling, deformity or signs of injury. Cervical back: Normal range of motion and neck supple. Skin: General: Skin is warm and dry. Neurological: General: No focal deficit present. Mental Status: She is alert and oriented to person, place, and time. Mental status is at baseline. Sensory: Sensory deficit present. Motor: Weakness present. Psychiatric: Attention and Perception: Attention and perception normal. Mood and Affect: Mood normal. Behavior: Behavior normal. Judgment: Judgment normal. Last Recorded Vitals Blood pressure 135/54, pulse 76, temperature 36.4 C (97.5 F), temperature source Temporal, resp. rate 20, height 1.6 m (5' 3 ), weight 113 kg (250 lb), SpO2 97%. Relevant Results MR lumbar spine wo IV contrast Result Date: 01/10/2024 Interpreted By: Bernadette Tapia, STUDY: MR LUMBAR SPINE WO IV CONTRAST; 01/10/2024 8:51 pm INDICATION: Signs/Symptoms:left leg numbness, lower extremity weakness. COMPARISON: MRI of the lumbar spine dated 01/01/2024; 12/18/2023; 10/31/2023;. ACCESSION NUMBER(S): [id number] ORDERING CLINICIAN: GERMAINE BLAIR TECHNIQUE: Sagittal T1, T2, STIR, axial T1 and T2 weighted images of the lumbar spine were acquired. FINDINGS: Exam is somewhat degraded by motion. Lumbar vertebral alignment ismaintained, without evidence of new spondylolisthesis. Lumbar vertebral body heights are preserved,without evidence of new compression fractures. No new signal abnormalities are present in the posterior elements of the lumbar spine. Marrow signal is within normal limits without evidence of new STIR hyperintense edema. There is redemonstration of uxnf-hj-semwpacp disc height loss at the level of L4-L5, with intervertebral disc space is preserved at other levels. Lower thoracic spinal cord unremarkable in appearance. Conus medullaris terminates at the level of L1-L2. There is redemonstration of circumferential disc bulge with superimposed left subarticular disc protrusion at the level of L4-L5 which contributes to [id number]-kbvjycpv spinal canal and mild left-sided neural foraminal narrowing, unchanged in appearance to prior exams. This herniation again likely abuts and effaces the traversing left L4 nerve. No new posterior disc contour abnormality is identified in the lumbar spine. No new spinal canal or neural foraminal stenosis is present in the interim since prior exams. There is ongoing interval improvement in scarring and soft tissue edema in the superficial fat overlying the lumbar spine without evidence of new/acute abnormality within the paraspinal musculature. 1. Unchanged circumferential disc bulge with superimposed left subarticular disc herniation at the level of L4-L5, contributing to ppsh-vq-hierblsj spinal canal and mild left-sided neural foraminal narrowing and likely abutment/effacement of the traversing left L5 nerve. 2. No new abnormality is identified in the lumbar spine in the interim to recent MRI on 01/01/2024. No new posterior disc contour abnormality or spinal canal stenosis is present. MACRO: None Signed by: Bernadette Tapia 01/10/2024 9:34 PM Dictation workstation: [id number] Results for orders placed or performed during the hospital encounter of 01/26/24 (from the past 24 hours) Comprehensive metabolic panel Result Value Ref Range Glucose 106 (H) 74 - 99 mg/dL Sodium 140 136 - 145 mmol/L Potassium 4.3 3.5 - 5.3 mmol/L Chloride 108 (H) 98 - 107 mmol/L Bicarbonate 23 21 - 32 mmol/L Anion Gap 13 10 - 20 mmol/L Urea Nitrogen 17 6 - 23 mg/dL Creatinine 0.78 0.50 - 1.05 mg/dL eGFR >90 >60 mL/min/1.73m*2 Calcium 9.0 8.6 - 10.3 mg/dL Albumin 4.3 3.4 - 5.0 g/dL Alkaline Phosphatase 93 33 - 110 U/L Total Protein 7.3 6.4 - 8.2 g/dL AST 20 9 - 39 U/L Bilirubin, Total 0.3 0.0 - 1.2 mg/dL ALT 17 7 - 45 U/L CBC and Auto Differential Result Value Ref Range WBC 11.0 4.4 - 11.3 x10*3/uL nRBC 0.0 0.0 - 0.0 /100 WBCs RBC 4.53 4.00 - 5.20 x10*6/uL Hemoglobin 13.6 12.0 - 16.0 g/dL Hematocrit 42.1 36.0 - 46.0 % MCV 93 80 - 100 fL MCH 30.0 26.0 - 34.0 pg MCHC 32.3 32.0 - 36.0 g/dL RDW 13.4 11.5 - 14.5 % Platelets 430 150 - 450 x10*3/uL Neutrophils % 82.3 40.0 - 80.0 % Immature Granulocytes %, Automated 0.3 0.0 - 0.9 % Lymphocytes % 11.4 13.0 - 44.0 % Monocytes % 4.6 2.0 - 10.0 % Eosinophils % 1.3 0.0 - 6.0 % Basophils % 0.1 0.0 - 2.0 % Neutrophils Absolute 9.03 (H) 1.20 - 7.70 x10*3/uL Immature Granulocytes Absolute, Automated 0.03 0.00 - 0.70 x10*3/uL Lymphocytes Absolute 1.25 1.20 - 4.80 x10*3/uL Monocytes Absolute 0.50 0.10 - 1.00 x10*3/uL Eosinophils Absolute 0.14 0.00 - 0.70 x10*3/uL Basophils Absolute 0.01 0.00 - 0.10 x10*3/uL Assessment/Plan Assessment & Plan Back pain with radiation Continue patient's home medications and add IV morphine as needed for breakthrough pain. Will consult Pain Management and keep patient NPO in the interim. MRI from 01/10/24 reviewed, unchanged. SCDs for DVT ppx. Chirag Miguel MD documented in this [facility] Work Phone: [phone] 283-804211-04-2024 Nurse Note* Elke Gtz RN - 01/27/2024 3:50 AM EST Patient arrived on cart via [facility] to room 223 at 0330. Patient is alert and oriented x 4. Vitals are stable. Patient rates left lower back pain 11/01. Dr. Miguel notified of patient's arrival. Patient oriented to room and call light. [facility] Work Phone: [phone]) 372-913311-03-2024 Emergency department Note* Rayshawn Fischer PA-C - 01/26/2024 4:34 PM EST HPI Chief Complaint Patient presents with Back Pain 48-year-old female presents the ED today with a chief concern of back pain. Patient reports that for the past couple weeks she is having back pain. Was diagnosed with a herniated disc and is supposedto have surgery on 02/06/2024. Reports that she has had worsening pain over the past couple days. The pain is in the left side of the low back and radiates down the entire left leg. Reports associated tingling the left leg. She denies any leg swelling. No recent travel or surgeries. No history of PE or DVT. No chest pain or shortness of breath. No abdominal pain. No syncope. No urinary symptoms. No saddle anesthesia or urinary/fecal incontinence or retention. Does have a history of IV drug use but per patient does not do this now. Reports that she stopped this years ago. Is not anticoagulated. She does have history of arthritis, bipolar, depression, hepatic steatosis, herniated disc. No recent falls or injury. She has no other symptoms or concerns at this time. 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 Patient History Past Medical History: Diagnosis Date Anxiety Arthritis Bipolar disorder Chronic pain disorder Depression HCV (hepatitis C virus) 2013 treated and resolved Herniated lumbar intervertebral disc Liver disease stage 3 - stable Neuropathic pain Plan: Thoracic Laminectomy for Spinal Cord Stimulator Leads; Generator Implant 11/21/23 Obesity Vision loss Past Surgical History: Procedure Laterality Date ADENOIDECTOMY BUNIONECTOMY Bilateral CHOLECYSTECTOMY COLONOSCOPY DENTAL SURGERY Bilateral all teeth removed, dentures HYSTERECTOMY MYRINGOTOMY W/ TUBES Bilateral SPINAL CORD STIMULATOR IMPLANT 09/23/2023 Percutaneous Thoracic Spinal Cord Stimulator Leads and Generator Placement SPINAL CORD STIMULATOR REMOVAL 10/14/2023 SPINAL CORD STIMULATOR TRIAL W/ LAMINOTOMY 08/21/2023 Percutaneous Thoracic Spinal Cord Stimulator Trial TONSILLECTOMY Family History Problem Relation Name Age of Onset Lung disease Mother COPD Mother Lung disease Father Lung cancer Father Heart disease Father Social History Tobacco Use Smoking status: Every Day Current packs/day: 0.50 Average packs/day: 0.5 packs/day for 32.8 years (16.4 ttl pk-yrs) Types: Cigarettes Start date: 1991 Smokeless tobacco: Never Vaping Use Vaping status: Never Used Substance Use Topics Alcohol use: Never Drug use: Not Currently Comment: last use 2016- heroin Physical Exam ED Triage Vitals [01/26/24 1646] Temperature Heart Rate Respirations BP 36.7 C (98.1 F) 88 18 159/67 Pulse Ox Temp Source Heart Rate Source Patient Position 99 % Oral Monitor -- BP Location FiO2 (%) -- -- Physical Exam General: The pain the patient is sitting comfortably no acute distress. Vital signs per nursing note. Skin: No rashes, lesions, scars. Normal skin turgor. Head: Atraumatic normocephalic Neck: The neck is supple. The trachea is midline. Lungs: Lungs are clear to auscultation bilaterally. No rhonchi, wheezing, or rales. No stridor. Symmetric chest expansion Heart: Normal S1-S2 no murmurs, rubs, gallops. Abdomen: Abdomen is flat, nontender, nondistended. No rebound tenderness or guarding. No pulsatile mass. No CVA tenderness Peripheral vascular: Symmetric 2+ radial, dorsalis pedis, and posterior tibial pulses. Capillary refill is under 3 seconds. Neurologic: Alert and oriented x4. Sensation is intact in the upper and lower extremity. Sensation is intact in the inner thigh and groin. Patient is able to cross the legs, extend and flex the knee,point the great toe up, dorsiflex and plantarflex the ankle. 2+ reflexes at the patellar tendon. Normal gait. Musculoskeletal: No overlying skin changes throughout the entire back. No tenderness over the spinal processes throughout the back. There is tenderness to palpation over the paraspinal muscles in thelumbar spine. Full range of motion of the back. 5/5 strength in right lower extremity. 4/5 strengthin left lower extremity due to pain. Patient has no midline spinal tenderness. No step-offs. : Deferred ED Course & MDM ED Course as of 01/26/24 1831 Sun Jan 26, 2024 1724 Patient was given topical lidocaine patch, Robaxin, Toradol, dexamethasone in the ED [] 1728 IMPRESSION: 1. Unchanged circumferential disc bulge with superimposed left subarticular disc herniation at the level of L4-L5, contributing to nglg-bi-marqxezy spinal canal and mild left-sided neural foraminal narrowing and likely abutment/effacement of the traversing left L5 nerve. 2. No new abnormality is identified in the lumbar spine in the interim to recent MRI on 01/01/2024. No new posterior disc contour abnormality or spinal canal stenosis is present. MACRO: None Signed by: Bernadette Tapia 01/10/2024 9:34 PM Dictation workstation: [id number] [] 182 Spoke with pain management who recommends admission versus treatment outpatient. Patient wouldlike to be admitted at this time. pain management will see patient in the morning [] 182 Spoke with Giulia Man from [facility] who accepts transfer of this patient [] ED Course User Index [] Rayshawn Fischer PA-C Diagnoses as of 01/26/24 1831 Acute left-sided low back pain with left-sided sciatica No data recorded Gadiel Coma Scale Score: 15 (01/26/24 1646 : Fatou Morales RN) Medical Decision Making 48-year-old female presents the ED today with a chief concern of back pain. Vital signs reassuring.Patient overall appears well and is nontoxic-appearing. Was given topical lidocaine patch, Toradol,Robaxin in the ED. Was also given dexamethasone. Has a ride home today will not be driving her selfhome. Patient already had 2 MRIs this month. Patient has full range of motion of the neck without any meningismus. Satting on room air. Not hypoxic. Not tachycardic. Afebrile. No signs of DVT on exam. Neurovascular status intact in lower extremities bilaterally. No signs of cord compression. There is no emergent MRI indicated at this time. Neurovascular status intact in lower extremities bilaterally. Patient is afebrile. I will suspicion for any epidural abscess at this time. Again do not thinkfurther workup with MRI is indicated at this time. Patient felt better after administration of 2 mgof morphine. would like transferred to [facility] for further evaluation and treatment. Do not think imaging is indicated at this time. Patient was accepted to [facility].I did order a CBC and CMP on her and attending physician Dr. Corbin will follow up with these labs. My shift ended at [address] Corbin pending transfer. I did speak with pain management as noted above who states they will see patient tomorrow morning. Discussed with MD from [facility] as noted above who accepted transfer of this patient. Patient will be transferred via BLS to [facility]. Differential diagnosis: Back strain, AAA rupture, cauda equina syndrome, cord compression, compression fracture, epidural abscess, epidural hematoma, herniated disc, sciatica, nephrolithiasis, ureterolithiasis, PE, pyelonephritis, vertebral fracture, pancreatitis, zoster Disposition/treatment 1. See above Shared decision-making was used patient feels comfortable being transferred to [facility] for further evaluation and treatment. Procedure Procedures Rayshawn Fischer PA-C 01/26/24 1835 Cosigned by Bib Bowman MD at 01/26/2024 7:49 PM EST Associated attestation - Bib Bowman MD - 01/26/2024 7:49 PM EST This patient was seen by the advanced practice provider. I have personally performed a substantive portion of the encounter. I have seen and examined the patient; agree with the workup, evaluation, MDM, management and diagnosis. The care plan has been discussed. I personally saw the patient and made/approved the management plan and take responsibility for the patient management. History: Here with acute on chronic worsening of the left lower back pain Exam: Tenderness palpation over left side lower back rating down the left leg neuro vastly intact distal MDM: Given acute on chronic worsening of symptoms despite treatment here will require pain management. We did consult pain management fellow Won Kinney who does agree to consult on case tomorrow. * Fatou Morales RN - 01/26/2024 4:34 PM EST Pt c/o worsening back pain that started today. Pt has a slipped disc in L5. Pt scheduled to have back surgery on 02/05. Pt denies new injury or trauma. [facility] [phone]) 843-361811-03-2024 Emergency department Triage note* Fatou Morales RN - 01/26/2024 4:34 PM EST Pt c/o worsening back pain that started today. Pt has a slipped disc in L5. Pt scheduled to have back surgery on 02/05. Pt denies new injury or trauma. [facility] Work Phone: [phone] 165-526711-03-2024 Physician Emergency department Note* Rayshawn Fischer PA-C - 01/26/2024 4:34 PM EST HPI Chief Complaint Patient presents with Back Pain 48-year-old female presents the ED today with a chief concern of back pain. Patient reports that for the past couple weeks she is having back pain. Was diagnosed with a herniated disc and is supposedto have surgery on 02/06/2024. Reports that she has had worsening pain over the past couple days. The pain is in the left side of the low back and radiates down the entire left leg. Reports associated tingling the left leg. She denies any leg swelling. No recent travel or surgeries. No history of PE or DVT. No chest pain or shortness of breath. No abdominal pain. No syncope. No urinary symptoms. No saddle anesthesia or urinary/fecal incontinence or retention. Does have a history of IV drug use but per patient does not do this now. Reports that she stopped this years ago. Is not anticoagulated. She does have history of arthritis, bipolar, depression, hepatic steatosis, herniated disc. No recent falls or injury. She has no other symptoms or concerns at this time. 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 Patient History Past Medical History: Diagnosis Date Anxiety Arthritis Bipolar disorder Chronic pain disorder Depression HCV (hepatitis C virus) 2013 treated and resolved Herniated lumbar intervertebral disc Liver disease stage 3 - stable Neuropathic pain Plan: Thoracic Laminectomy for Spinal Cord Stimulator Leads; Generator Implant 11/21/23 Obesity Vision loss Past Surgical History: Procedure Laterality Date ADENOIDECTOMY BUNIONECTOMY Bilateral CHOLECYSTECTOMY COLONOSCOPY DENTAL SURGERY Bilateral all teeth removed, dentures HYSTERECTOMY MYRINGOTOMY W/ TUBES Bilateral SPINAL CORD STIMULATOR IMPLANT 09/23/2023 Percutaneous Thoracic Spinal Cord Stimulator Leads and Generator Placement SPINAL CORD STIMULATOR REMOVAL 10/14/2023 SPINAL CORD STIMULATOR TRIAL W/ LAMINOTOMY 08/21/2023 Percutaneous Thoracic Spinal Cord Stimulator Trial TONSILLECTOMY Family History Problem Relation Name Age of Onset Lung disease Mother COPD Mother Lung disease Father Lung cancer Father Heart disease Father Social History Tobacco Use Smoking status: Every Day Current packs/day: 0.50 Average packs/day: 0.5 packs/day for 32.8 years (16.4 ttl pk-yrs) Types: Cigarettes Start date: 1991 Smokeless tobacco: Never Vaping Use Vaping status: Never Used Substance Use Topics Alcohol use: Never Drug use: Not Currently Comment: last use 2016- heroin Physical Exam ED Triage Vitals [01/26/24 1646] Temperature Heart Rate Respirations BP 36.7 C (98.1 F) 88 18 159/67 Pulse Ox Temp Source Heart Rate Source Patient Position 99 % Oral Monitor -- BP Location FiO2 (%) -- -- Physical Exam General: The pain the patient is sitting comfortably no acute distress. Vital signs per nursing note. Skin: No rashes, lesions, scars. Normal skin turgor. Head: Atraumatic normocephalic Neck: The neck is supple. The trachea is midline. Lungs: Lungs are clear to auscultation bilaterally. No rhonchi, wheezing, or rales. No stridor. Symmetric chest expansion Heart: Normal S1-S2 no murmurs, rubs, gallops. Abdomen: Abdomen is flat, nontender, nondistended. No rebound tenderness or guarding. No pulsatile mass. No CVA tenderness Peripheral vascular: Symmetric 2+ radial, dorsalis pedis, and posterior tibial pulses. Capillary refill is under 3 seconds. Neurologic: Alert and oriented x4. Sensation is intact in the upper and lower extremity. Sensation is intact in the inner thigh and groin. Patient is able to cross the legs, extend and flex the knee,point the great toe up, dorsiflex and plantarflex the ankle. 2+ reflexes at the patellar tendon. Normal gait. Musculoskeletal: No overlying skin changes throughout the entire back. No tenderness over the spinal processes throughout the back. There is tenderness to palpation over the paraspinal muscles in thelumbar spine. Full range of motion of the back. 5/5 strength in right lower extremity. 4/5 strengthin left lower extremity due to pain. Patient has no midline spinal tenderness. No step-offs. : Deferred ED Course & MDM ED Course as of 01/26/24 1831 Sun Jan 26, 2024 172 Patient was given topical lidocaine patch, Robaxin, Toradol, dexamethasone in the ED [] 1728 IMPRESSION: 1. Unchanged circumferential disc bulge with superimposed left subarticular disc herniation at the level of L4-L5, contributing to ljfq-mo-jmvvwkcf spinal canal and mild left-sided neural foraminal narrowing and likely abutment/effacement of the traversing left L5 nerve. 2. No new abnormality is identified in the lumbar spine in the interim to recent MRI on 01/01/2024. No new posterior disc contour abnormality or spinal canal stenosis is present. MACRO: None Signed by: Bernadette Tapia 01/10/2024 9:34 PM Dictation workstation: [id number] [] 1824 Spoke with pain management who recommends admission versus treatment outpatient. Patient wouldlike to be admitted at this time. pain management will see patient in the morning [] 1827 Spoke with Giulia Man from [facility] who accepts transfer of this patient [] ED Course User Index [] Rayshawn Fischer PA-C Diagnoses as of 01/26/24 1831 Acute left-sided low back pain with left-sided sciatica No data recorded Gadiel Coma Scale Score: 15 (01/26/24 1646 : Fatou Morales RN) Medical Decision Making 48-year-old female presents the ED today with a chief concern of back pain. Vital signs reassuring.Patient overall appears well and is nontoxic-appearing. Was given topical lidocaine patch, Toradol,Robaxin in the ED. Was also given dexamethasone. Has a ride home today will not be driving her selfhome. Patient already had 2 MRIs this month. Patient has full range of motion of the neck without any meningismus. Satting on room air. Not hypoxic. Not tachycardic. Afebrile. No signs of DVT on exam. Neurovascular status intact in lower extremities bilaterally. No signs of cord compression. There is no emergent MRI indicated at this time. Neurovascular status intact in lower extremities bilaterally. Patient is afebrile. I will suspicion for any epidural abscess at this time. Again do not thinkfurther workup with MRI is indicated at this time. Patient felt better after administration of 2 mgof morphine. would like transferred to [facility] for further evaluation and treatment. Do not think imaging is indicated at this time. Patient was accepted to [facility].I did order a CBC and CMP on her and attending physician Dr. Corbin will follow up with these labs. My shift ended at [address] Corbin pending transfer. I did speak with pain management as noted above who states they will see patient tomorrow morning. Discussed with MD from [facility] as noted above who accepted transfer of this patient. Patient will be transferred via BLS to [facility]. Differential diagnosis: Back strain, AAA rupture, cauda equina syndrome, cord compression, compression fracture, epidural abscess, epidural hematoma, herniated disc, sciatica, nephrolithiasis, ureterolithiasis, PE, pyelonephritis, vertebral fracture, pancreatitis, zoster Disposition/treatment 1. See above Shared decision-making was used patient feels comfortable being transferred to [facility] for further evaluation and treatment. Procedure Procedures Rayshawn Fischer PA-C 01/26/24 1835 Cosigned by Bib Bowman MD at 01/26/2024 7:49 PM EST Associated attestation - Bib Bowman MD - 01/26/2024 7:49 PM EST This patient was seen by the advanced practice provider. I have personally performed a substantive portion of the encounter. I have seen and examined the patient; agree with the workup, evaluation, MDM, management and diagnosis. The care plan has been discussed. I personally saw the patient and made/approved the management plan and take responsibility for the patient management. History: Here with acute on chronic worsening of the left lower back pain Exam: Tenderness palpation over left side lower back rating down the left leg neuro vastly intact distal MDM: Given acute on chronic worsening of symptoms despite treatment here will require pain management. We did consult pain management fellow Won Kinney who does agree to consult on case tomorrow. [facility] Work Phone: [phone]) 505-351111-02-2024 Hospital Discharge instructions Patient Education 01/25/2024 16:05:44 Chronic Back Pain, Lbwl-dd-Sthc Chronic Back Pain Chronic back pain is back pain that lasts longer than 3 months. The pain may get worse at certain times (flare-ups). There are things you can do at home to manage your pain. Follow these instructions at home: Watch for any changes in your symptoms. Take these actions to help with your pain: Managing pain and stiffness If told, put ice on the painful area. You may be told to use ice for 24 48 hours after a flare-up starts. ?Put ice in a plastic bag. ?Place [...] the heat on for 20 30 minutes. If your skin turns bright red, take off the ice or heat right away to prevent skin damage. The riskof damage is higher if you cannot feel pain, heat, or cold. Soak in a warm bath. This can help with pain. Activity Avoid bending and other activities that make the pain worse. When you stand: ?Keep your upper back and neck straight. ?Keep your shoulders pulled back. ?Avoid slouching. When you sit: ?Keep your back straight. ?Relax your shoulders. Do not round your shoulders or pull them backward. Do not sit or hvac design engineer one place for too long. Take short rest breaks during the day. Lying down or standing is often better than sitting. Restingcan help relieve pain. When sitting or lying down for a long time, do some mild activity or stretching. This will help to prevent stiffness and pain. Get regular exercise. Ask your doctor what activities are safe for you. You may have to avoid lifting. Ask your provider how much you can safely lift. If you lift things: ?Bend your knees. ?Keep the weight close to your body. ?Avoid twisting. Medicines Take euri-gvd-hdwujfk and prescription medicines only as told by your doctor. ?You may need to take medicines for pain and swelling. These may be taken by mouth or put on the skin. You may also be given muscle relaxants. Ask your doctor if the medicine prescribed to you: ?Requires you to avoid driving or using machinery. ?Can cause trouble pooping (constipation). You may need to take these actions to prevent or treat trouble pooping: ?Drink enough fluid to keep your pee (urine) pale yellow. ?Take gpjh-tot-qscgqya or prescription medicines. ?Eat foods that are high in fiber. These include beans, whole grains, and fresh fruits and vegetables. ?Limit foods that are high in fat and sugars. These include fried or sweet foods. General instructions Sleep on a firm mattress. Try lying on your side with your knees slightly bent. If you lie on your back, put a pillow under your knees. Do not smoke or use any products that contain nicotine or tobacco. If you need help quitting, ask your doctor. Contact a doctor if: Your pain does not get better with rest or medicine. You have new pain. You have a fever. You lose weight quickly. You have trouble doing your normal activities. One or both of your legs or feet feel weak. One or both of your legs or feet lose feeling (have numbness). Get help right away if: You are not able to control when you pee or poop. You have bad back pain and: ?You feel like you may vomit (nauseous). ?You vomit. ?You have pain in your chest or your belly (abdomen). ?You have shortness of breath. ?You faint. These symptoms may be an emergency. Get help right away. Call 911. Do not wait to see if the symptoms will go away. Do not drive yourself to the hospital. This information is not intended to replace advice given to you by your health care provider. Make sure you discuss any questions you have with your health care provider. Document Revised: 10/29/2022 Document Reviewed: 10/29/2022 [employer] Patient Education 2023 [employer]. Follow Up Care 01/25/2024 15:23:27 With:Pain Clinic: [facility] [phone] Address:Unknown When:01/28/2024 16:05:07 Comments:Call to schedule a follow-up appointment with your neurosurgeon and/or pain management for further management of care. Use the prednisone as prescribed. Use the Flexeril and lidocaine patches as needed for pain along with Tylenol and Motrin. Return to ED with any new or worsening symptoms. With:Cheyanne Rosas Address: [address] [place] [address] [employer], [facility] [employer] [address] [place], [place] [id number] Business (1) When:Within 3 Day(s) [facility] [phone] NoteED Patient Education Note Orthopedics Chronic Back Pain Chronic back pain is back pain that lasts longer than 3 months. The pain may get worse at certain times (flare-ups). There are things you can do at home to manage your pain. Follow these instructions at home: Watch for any changes in your symptoms. Take these actions to help with your pain: Managing pain and stiffness ??? If told, put ice on the painful area. You may be told to use ice for 24?48 hours after a flare-up starts. ? Put ice in a plastic bag. ? Place a towel between your skin and the bag. ? Leave the ice on for 20 minutes, 2?3 times a day. ??? If told, put heat on the painful area. Do this as often as told by your doctor. Use the heat source that your doctor recommends, such as a moist heat pack or a heating pad. ? Place a towel between your skin and the heat source. ? Leave the heat on for 20?30 minutes. ??? If your skin turns bright red, take off the ice or heat right away to prevent skin damage. The risk of damage is higher if you cannot feel pain, heat, or cold. ??? Soak in a warm bath. This can help with pain. Activity ??? Avoid bending and other activities that make the pain worse. ??? When you stand: ? Keep your upper back and neck straight. ? Keep your shoulders pulled back. ? Avoid slouching. ??? When you sit: ? Keep your back straight. ? Relax your shoulders. Do not round your shoulders or pull them backward. ??? Do not sit or hvac design engineer one place for too long. ??? Take short rest breaks during the day. Lying down or standing is often better than sitting. Resting can help relieve pain. ??? When sitting or lying down for a long time, do some mild activity or stretching. This will helpto prevent stiffness and pain. ??? Get regular exercise. Ask your doctor what activities are safe for you. ??? You may have to avoid lifting. Ask your provider how much you can safely lift. ??? If you lift things: ? Bend your knees. ? Keep the weight close to your body. ? Avoid twisting. Medicines ??? Take tery-vho-btklgaq and prescription medicines only as told by your doctor. ? You may need to take medicines for pain and swelling. These may be taken by mouth or put on the skin. You may also be given muscle relaxants. ??? Ask your doctor if the medicine prescribed to you: ? Requires you to avoid driving or using machinery. ? Can cause trouble pooping (constipation). You may need to take these actions to prevent or treat trouble pooping: ? Drink enough fluid to keep your pee (urine) pale yellow. ? Take jqoq-fcy-jdbrgap or prescription medicines. ? Eat foods that are high in fiber. These include beans, whole grains, and fresh fruits and vegetables. ? Limit foods that are high in fat and sugars. These include fried or sweet foods. General instructions ??? Sleep on a firm mattress. Try lying on your side with your knees slightly bent. If you lie on your back, put a pillow under your knees. ??? Do not smoke or use any products that contain nicotine or tobacco. If you need help quitting, ask your doctor. Contact a doctor if: ??? Your pain does not get better with rest or medicine. ??? You have new pain. ??? You have a fever. ??? You lose weight quickly. ??? You have trouble doing your normal activities. ??? One or both of your legs or feet feel weak. ??? One or both of your legs or feet lose feeling (have numbness). Get help right away if: ??? You are not able to control when you pee or poop. ??? You have bad back pain and: ? You feel like you may vomit (nauseous). ? You vomit. ? You have pain in your chest or your belly (abdomen). ? You have shortness of breath. ? You faint. These symptoms may be an emergency. Get help right away. Call 911. ??? Do not wait to see if the symptoms will go away. ??? Do not drive yourself to the hospital. This information is not intended to replace advice given to you by your health care provider. Make sure you discuss any questions you have with your health care provider. Document Revised: 10/29/2022 Document Reviewed: 10/29/2022 [employer] Patient Education ? 2023 [employer].[facility] 01-25-2024 NoteProgress Note-Nurse leaves with [facility]11-01-2024 Emergency department Note * Kecia Huff, ELIZABETH-LEAD PROGRAMMER - 01/24/2024 7:22 PM EDT HPI Chief Complaint Patient presents with Back Pain My back is spasming 48-year-old female presents emergency department, patient has chronic low back pain, is due to havesurgery on 02/05. Patient states she overdid it today and is having worse pain this evening. Statesshe has not prescribed anything strong for her back pain. Presents to the ED requesting a pain medication. Patient denies any numbness or tingling to distal extremities, states this pain today feels very similar to her previous exacerbations of her low back pain. 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 Patient History Past Medical History: Diagnosis Date Anxiety Arthritis Bipolar disorder Chronic pain disorder Depression HCV (hepatitis C virus) 2013 treated and resolved Herniated lumbar intervertebral disc Liver disease stage 3 - stable Neuropathic pain Plan: Thoracic Laminectomy for Spinal Cord Stimulator Leads; Generator Implant 11/21/23 Obesity Vision loss Past Surgical History: Procedure Laterality Date ADENOIDECTOMY BUNIONECTOMY Bilateral CHOLECYSTECTOMY COLONOSCOPY DENTAL SURGERY Bilateral all teeth removed, dentures HYSTERECTOMY MYRINGOTOMY W/ TUBES Bilateral SPINAL CORD STIMULATOR IMPLANT 09/23/2023 Percutaneous Thoracic Spinal Cord Stimulator Leads and Generator Placement SPINAL CORD STIMULATOR REMOVAL 10/14/2023 SPINAL CORD STIMULATOR TRIAL W/ LAMINOTOMY 08/21/2023 Percutaneous Thoracic Spinal Cord Stimulator Trial TONSILLECTOMY Family History Problem Relation Name Age of Onset Lung disease Mother COPD Mother Lung disease Father Lung cancer Father Heart disease Father Social History Tobacco Use Smoking status: Every Day Current packs/day: 0.50 Average packs/day: 0.5 packs/day for 32.8 years (16.4 ttl pk-yrs) Types: Cigarettes Start date: 1991 Smokeless tobacco: Never Vaping Use Vaping status: Never Used Substance Use Topics Alcohol use: Never Drug use: Not Currently Comment: last use 2016- heroin Physical Exam ED Triage Vitals [01/24/24 1950] Temperature Heart Rate Respirations BP 36.2 C (97.2 F) 80 16 (!) 208/96 Pulse Ox Temp Source Heart Rate Source Patient Position 99 % Temporal Monitor Sitting BP Location FiO2 (%) Right arm -- Physical Exam Back Pain: Gen.: Vitals noted no distress. Afebrile. Heart: Regular rate rhythm no murmur. Lungs: Clear to auscultation bilaterally with good aeration and no adventitious breath sounds. Abdomen: Soft, nontender, nonsurgical throughout. Normoactive bowel sounds. No pulsatile masses or abdominal bruits to auscultation. Back: There is tenderness to palpation in the midline and paraspinal planes throughout the LS. Normal motor sensory, symmetric reflexes, strong equal peripheral pulses, normal Babinski's bilaterally. Skin: No rash. Neuro: No focal neurologic deficits, NIH score of 0. ED Course & MDM Diagnoses as of 01/24/242013 Acute bilateral low back pain without sciatica No data recorded Gadiel Coma Scale Score: 15 (01/24/24 2011 : Coty Diego LPN) Medical Decision Making Patient was given one-time dose of morphine. Should follow-up with her surgeon as scheduled for herprocedure. Return with any worsening symptoms or additional concerns. Procedure Procedures Kecia Huff APRN-LEAD PROGRAMMER 11/01/24 2016 documented in this [facility] Work Phone: 1([phone]) 985-668011-01-2024 Physician Emergency department Note* ROX Ennis - 01/24/2024 7:22 PM EDT HPI Chief Complaint Patient presents with Back Pain My back is spasming 48-year-old female presents emergency department, patient has chronic low back pain, is due to havesurgery on 02/05. Patient states she overdid it today and is having worse pain this evening. Statesshe has not prescribed anything strong for her back pain. Presents to the ED requesting a pain medication. Patient denies any numbness or tingling to distal extremities, states this pain today feels v jess similar to her previous exacerbations of her low back pain. 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 Patient History Past Medical History: Diagnosis Date Anxiety Arthritis Bipolar disorder Chronic pain disorder Depression HCV (hepatitis C virus) 2014 treated and resolved Herniated lumbar intervertebral disc Liver disease stage 3 - stable Neuropathic pain Plan: Thoracic Laminectomy for Spinal Cord Stimulator Leads; Generator Implant 11/21/23 Obesity Vision loss Past Surgical History: Procedure Laterality Date ADENOIDECTOMY BUNIONECTOMY Bilateral CHOLECYSTECTOMY COLONOSCOPY DENTAL SURGERY Bilateral all teeth removed, dentures HYSTERECTOMY MYRINGOTOMY W/ TUBES Bilateral SPINAL CORD STIMULATOR IMPLANT 09/23/2023 Percutaneous Thoracic Spinal Cord Stimulator Leads and Generator Placement SPINAL CORD STIMULATOR REMOVAL 10/14/2023 SPINAL CORD STIMULATOR TRIAL W/ LAMINOTOMY 08/21/2023 Percutaneous Thoracic Spinal Cord Stimulator Trial TONSILLECTOMY Family History Problem Relation Name Age of Onset Lung disease Mother COPD Mother Lung disease Father Lung cancer Father Heart disease Father Social History Tobacco Use Smoking status: Every Day Current packs/day: 0.50 Average packs/day: 0.5 packs/day for 32.8 years (16.4 ttl pk-yrs) Types: Cigarettes Start date: 1991 Smokeless tobacco: Never Vaping Use Vaping status: Never Used Substance Use Topics Alcohol use: Never Drug use: Not Currently Comment: last use 2016- heroin Physical Exam ED Triage Vitals [01/24/24 1950] Temperature Heart Rate Respirations BP 36.2 C (97.2 F) 80 16 (!) 208/96 Pulse Ox Temp Source Heart Rate Source Patient Position 99 % Temporal Monitor Sitting BP Location FiO2 (%) Right arm -- Physical Exam Back Pain: Gen.: Vitals noted no distress. Afebrile. Heart: Regular rate rhythm no murmur. Lungs: Clear to auscultation bilaterally with good aeration and no adventitious breath sounds. Abdomen: Soft, nontender, nonsurgical throughout. Normoactive bowel sounds. No pulsatile masses or abdominal bruits to auscultation. Back: There is tenderness to palpation in the midline and paraspinal planes throughout the LS. Normal motor sensory, symmetric reflexes, strong equal peripheral pulses, normal Babinski's bilaterally. Skin: No rash. Neuro: No focal neurologic deficits, NIH score of 0. ED Course & MDM Diagnoses as of 01/24/242013 Acute bilateral low back pain without sciatica No data recorded Gadiel Coma Scale Score: 15 (01/24/24 2011 : Coty Diego LPN) Medical Decision Making Patient was given one-time dose of morphine. Should follow-up with her surgeon as scheduled for herprocedure. Return with any worsening symptoms or additional concerns. Procedure Procedures ROX Ennis 01/24/242015 [facility] Work Phone: 1(566) 355-417810-31-2024 Hospital Discharge instructions Patient Education 01/23/2024 18:34:26 Abdominal Pain, Adult, Qeww-vq-Plki Abdominal Pain, Adult Many things can cause belly (abdominal) pain. In most cases, belly pain is not a serious problem and can be watched and treated at home. But in some cases, it can be serious. Your doctor will try to find the cause of your belly pain. Follow these instructions at home: Medicines Take hzwq-hht-njwiwbs and prescription medicines only as told by [...] provider. Document Revised: 12/26/2022 Document Reviewed: 12/26/2022 [employer] Patient Education 2023 [employer]. Follow Up Care 01/23/2024 13:54:29 With:Cheyanne Rosas Address: [address] [place] [address] Business (1) When:01/26/2024 18:34:07 Comments:Call to schedule a follow-up appoint with your family physician in the next 2 to 3 days. Continue to elevate your feet and wear compression stockings. Return to ED with any new or worsening symptoms. [facility] 10-31-2024 NoteED Patient Education Note Gastroenterology Abdominal Pain, Adult Many things can cause belly (abdominal) pain. In most cases, belly pain is not a serious problem and can be watched and treated at home. But in some cases, it can be serious. Your doctor will try to find the cause of your belly pain. Follow these instructions at home: Medicines ??? Take hmxr-eon-ejihxyy and prescription medicines only as told by your doctor. ??? Do not take medicines that help you poop (laxatives) unless told by your doctor. General instructions ??? Watch your belly pain for any changes. Tell your doctor if the pain gets worse. ??? Drink enough fluid to keep your pee (urine) pale yellow. Contact a doctor if: ??? Your belly pain changes or gets worse. ??? You have very bad cramping or bloating in your belly. ??? You vomit. ??? Your pain gets worse with meals, after eating, or with certain foods. ??? You have trouble pooping or have watery poop for more than 2?3 days. ??? You are not hungry, or you lose weight without trying. ??? You have signs of not getting enough fluid or water (dehydration). These may include: ? Dark pee, very little pee, or no pee. ? Cracked lips or dry mouth. ? Feeling sleepy or weak. ??? You have pain when you pee or poop. ??? Your belly pain wakes you up at night. ??? You have blood in your pee. ??? You have a fever. Get help right away if: ??? You cannot stop vomiting. ??? Your pain is only in one part of your belly, like on the right side. ??? You have bloody or black poop, or poop that looks like tar. ??? You have trouble breathing. ??? You have chest pain. These symptoms may be an emergency. Get help right away. Call 911. ??? Do not wait to see if the symptoms will go away. ??? Do not drive yourself to the hospital. This information is not intended to replace advice given to you by your health care provider. Make sure you discuss any questions you have with your health care provider. Document Revised: 12/26/2022 Document Reviewed: 12/26/2022 [employer] Patient Education ? 2023 [employer].[facility] 01-23-2024 Evaluation + Plan noteExtracted from: Title:ED Note Author:Matthew MILES, Zhane Celis te:01/23/24 Abdominal pain, RUQ (R10.11: Right upper quadrant pain) Bilateral leg edema (R60.0: Localized edema) COPD exacerbation (J44.1: Chronic obstructive pulmonary disease with (acute) exacerbation) Orders: acetaminophen-oxycodone, 1 tab(s), Tab, Oral, Once, Stop date 01/23/24 18:32:00 EDT, STAT, Start date 01/23/24 18:32:00 EDT azithromycin, = 1 packet(s), Oral, As Directed, as directed on package labeling, X 5 day(s), # 6 tab(s), Refills(s) 0, Pharmacy: [facility]/pharmacy #[id number], 160, cm, 01/23/24 14:03:00 EDT, Height/Length Dosing, 114.8, kg, 01/23/24 14:03:00 EDT, Weight Dosing calcium carbonate, 500 mg = 1 tab(s), Tab-Chew, Oral, Once, Stop date 01/23/24 18:18:00 EDT, STAT, Start date 01/23/24 18:18:00 EDT, 01/23/24 18:18:00 EDT morphine, 4 mg = 1 mL, Injection, IntraMuscular, Once, Stop date 01/23/24 16:12:00 EDT, STAT, Start date 01/23/24 16:12:00 EDT, 01/23/24 16:12:00 EDT predniSONE, 50 mg = 1 tab(s), Oral, Daily, X 5 day(s), # 5 tab(s), Refills(s) 0, Pharmacy: [facility]/pharmacy #[id number], 160, cm, 01/23/24 14:03:00 EDT, Height/Length Dosing, 114.8, kg, 01/23/24 14:03:00 EDT, Weight Dosing ECG 12 Lead Adult US Lower Extremity Venous Duplex Bilateral XR Chest Single View Future Scheduled Tests Laboratory* TSH With T4fr Reflex 07/17/23 * Urinalysis with Micro 07/17/23 * Lipid Panel 07/17/23 * Drug Screen Urine 07/17/23 Radiology* MA Mamm Screen w/CAD if perf and 3D Kenan 07/17/23 [facility] 10-29-2024 Emergency department Note* ROX Rivero - 01/21/2024 1:56 PM EDT Emergency Department Encounter [facility] EMERGENCY MEDICINE Patient: Jerad Tracy : 1975 Date of Evaluation: 01/21/2024 ED Provider: ROX Rivero Chief Complaint Chief Complaint Patient presents with Back Pain OUZINKIE (Location/Symptom, Timing/Onset, Context/Setting, Quality, Duration, Modifying Factors, Severity) Note limiting factors. Limitations to History: none Historian: self Records reviewed: EMR inpatient and outpatient notes, Care Everywhere Jerad Tracy is a 48 y.o. female who presents to the emergency department complaining of left lowerextremity numbness, pain, has a known disc herniation to L4, L5 and is scheduled for surgery on [id number], is on oxycodone, Zanaflex with minimal relief of symptoms. Denies any new urinary or bowel incontinence. ROS: Review of Systems 14 systems reviewed and otherwise acutely negative except as in the OUZINKIE. Past History Past Medical History: Diagnosis Date Anxiety Arthritis Bipolar disorder Chronic pain disorder Depression HCV (hepatitis C virus) 2013 treated and resolved Herniated lumbar intervertebral disc Liver disease stage 3 - stable Neuropathic pain Plan: Thoracic Laminectomy for Spinal Cord Stimulator Leads; Generator Implant 11/21/23 Obesity Vision loss Past Surgical History: Procedure Laterality Date ADENOIDECTOMY BUNIONECTOMY Bilateral CHOLECYSTECTOMY COLONOSCOPY DENTAL SURGERY Bilateral all teeth removed, dentures HYSTERECTOMY MYRINGOTOMY W/ TUBES Bilateral SPINAL CORD STIMULATOR IMPLANT 09/23/2023 Percutaneous Thoracic Spinal Cord Stimulator Leads and Generator Placement SPINAL CORD STIMULATOR REMOVAL 10/14/2023 SPINAL CORD STIMULATOR TRIAL W/ LAMINOTOMY 08/21/2023 Percutaneous Thoracic Spinal Cord Stimulator Trial TONSILLECTOMY Social History Socioeconomic History Marital status: Significant Other Tobacco Use Smoking status: Every Day Current packs/day: 0.50 Average packs/day: 0.5 packs/day for 32.8 years (16.4 ttl pk-yrs) Types: Cigarettes Start date: 1991 Smokeless tobacco: Never Vaping Use Vaping status: Never Used Substance and Sexual Activity Alcohol use: Never Drug use: Not Currently Comment: last use 2016- heroin Sexual activity: Defer Social Drivers of Health Financial Resource Strain: Low Risk (01/07/2024) Overall Financial Resource Strain (CARDIA) Difficulty of Paying Living Expenses: Not very hard Food Insecurity: No Food Insecurity (01/07/2024) Hunger Vital Sign Worried About Running Out of Food in the Last Year: Never true Ran Out of Food in the Last Year: Never true Transportation Needs: No Transportation Needs (01/07/2024) PRAPARE - Transportation Lack of Transportation (Medical): No Lack of Transportation (Non-Medical): No Physical Activity: Inactive (01/03/2024) Exercise Vital Sign Days of Exercise per Week: 0 days Minutes of Exercise per Session: 0 min Stress: No Stress Concern Present (01/03/2024) [place] [employer] - Occupational Stress Questionnaire Feeling of Stress : Not at all Social Connections: Socially Isolated (01/03/2024) Social Connection and Isolation Panel [NHANES] Frequency of Communication with Friends and Family: More than three times a week Frequency of Social Gatherings with Friends and Family: Once a week Attends Druze Services: Never Active Member of Clubs or Organizations: No Attends Club or Organization Meetings: Never Marital Status: Intimate Partner Violence: Not At Risk (01/07/2024) Humiliation, Afraid, Rape, and Kick questionnaire Fear of Current or Ex-Partner: No Emotionally Abused: No Physically Abused: No Sexually Abused: No Housing Stability: Low Risk (01/07/2024) Housing Stability Vital Sign Unable to Pay for Housing in the Last Year: No Number of Times Moved in the Last Year: 0 Homeless in the Last Year: No Medications/Allergies Previous Medications DIPHENHYDRAMINE (SOMINEX) 25 MG TABLET Take 1 tablet (25 mg) by mouth every 6 hours for 5 days. DOCUSATE SODIUM (COLACE) 100 MG CAPSULE Take 1 capsule (100 mg) by mouth 2 times a day. FLUOXETINE (PROZAC) 60 MG TABLET Take 1 tablet (60 mg) by mouth once daily. HYDROXYZINE HCL (ATARAX) 25 MG TABLET Take 1 tablet (25 mg) by mouth 3 times a day as needed for anxiety. METHOCARBAMOL (ROBAXIN) 500 MG TABLET Take 1 tablet (500 mg) by mouth 3 times a day for 7 days. NALOXONE (NARCAN) 4 MG/0.1 ML NASAL SPRAY Administer 1 spray (4 mg) into affected nostril(s) if needed for opioid reversal. May repeat every 2-3 minutes if needed, alternating nostrils, until medicalassistance becomes available. OMEPRAZOLE (PRILOSEC) [address] CAPSULE Take 2 capsules (40 mg) by mouth once daily. Do not crush orchew. OXYCODONE (ROXICODONE) 10 MG IMMEDIATE RELEASE TABLET Take 1 tablet (10 mg) by mouth every 4 hours if needed for severe pain (7 - 10). TIZANIDINE (ZANAFLEX) 2 MG CAPSULE Take 1 capsule (2 mg) by mouth 3 times a day. ZOLPIDEM (AMBIEN) 5 MG TABLET Take 1 tablet (5 mg) by mouth as needed at bedtime for sleep. Allergies Allergen Reactions Penicillins Hives Reported hives as a child. Prescribed cephalexin September 2023 and reported itching only (no rash/hives). Also reports having taken amoxicillin in the past and tolerated. Gabapentin Headache Tylenol [Acetaminophen] Unknown History of stage III liver fibrosis Nabumetone Nausea/vomiting and Rash Physical Exam ED Triage Vitals [01/21/24 1430] Temperature Heart Rate Respirations BP 36.9 C (98.4 F) 93 17 122/75 Pulse Ox Temp src Heart Rate Source Patient Position 95 % -- -- -- BP Location FiO2 (%) -- -- Physical Exam GENERAL: The patient appears nourished and normally developed. Vital signs as documented. HEENT: Head normocephalic, atraumatic, EOMs intact, PERRLA, Mucous membranes moist. Nares patent without copious rhinorrhea. No lymphadenopathy. PULMONARY: Lungs are clear to auscultation, without any respiratory distress. Able to speak full sentences, no accessory muscle use CARDIAC: Normal rate. No murmurs, rubs or gallops ABDOMEN: Soft, non distended, non tender, BS positive x 4 quadrants, No rebound or guarding, no peritoneal signs, no CVA tenderness, no masses or organomegaly MUSCULOSKELETAL: Able to ambulate, Non edematous, with no obvious deformities. Pulses intact distal SKIN: Good color, with no significant rashes. No pallor. NEURO: No obvious neurological deficits, normal sensation and strength bilaterally. Able to follow commands, NIH 0, CN 2-12 intact. Diagnostics Labs: Labs Reviewed - No data to display Radiographs: No orders to display Assessment In brief, Jerad Tracy is a 48 y.o. female who presented to the emergency department for acute on chronic back pain Plan Analgesics Differentials Sciatica Strain Cauda equina ED Course Diagnoses as of 01/21/241733 Acute left-sided low back pain with left-sided sciatica Visit Vitals BP 161/87 (BP Location: Right arm, Patient Position: Sitting) Pulse 88 Temp 36.9 C (98.4 F) Resp 16 Ht 1.6 m (5' 3 ) Wt 113 kg (250 lb) SpO2 96% BMI 44.29 kg/m OB Status Hysterectomy Smoking Status Every Day BSA 2.24 m Medications ketorolac (Toradol) injection 30 mg (has no administration in time range) morphine injection 4 mg (has no administration in time range) diazePAM (Valium) tablet 5 mg (has no administration in time range) Plan of care discussed, patient is stable appearing, in no distress, has known disc herniation withsciatica and needs a dose of medication to get her home, denies any urinary symptoms, fevers, chills, reports left lower extremity numbness, tingling and feels the same when her sciatica acts up due to the disc herniation, has pain medication at home and has an appointment for surgery on the , discharged home in stable condition, educated on any worsening signs and symptoms to return to the emergency department Final Impression 1. Acute left-sided low back pain with left-sided sciatica DISPOSITION Disposition: Discharge Patient condition is: Stable Comment: Please note this report has been produced using speech recognition software and may contain errors related to that system including errors in grammar, punctuation, and spelling, as well as words and phrases that may be inappropriate. If there are any questions or concerns please feel free to contact the dictating provider for clarification. ROX Rivero APRN-CNP 01/21/241733 * Bree Cordoba RN - 01/21/2024 1:56 PM EDT Pt. Arrived to the ED via private car for c/o back pain . Per pt. She has a herniated disc in her L4 and L5. She is scheduled for surgery February 05. Pt states over the last couple of days her pain is increasing and she has noticed swelling in hr hands and ankles. [facility]: 1(759) 755-783010-29-2024 Emergency department Triage note* Bree Cordoba RN - 01/21/2024 1:56 PM EDT Pt. Arrived to the ED via private car for c/o back pain . Per pt. She has a herniated disc in her L4 and L5. She is scheduled for surgery February 05. Pt states over the last couple of days her pain is increasing and she has noticed swelling in hr hands and ankles. [facility] Work Phone: 1(591) 424-396410-29-2024 Physician Emergency department Note* ROX Rivero - 01/21/2024 1:56 PM EDT Emergency Department Encounter [facility] EMERGENCY MED[facility]INE Patient: Jerad Tracy : 1975 Date of Evaluation: 01/21/2024 ED Provider: ROX Rivero Chief Complaint Chief Complaint Patient presents with Back Pain OUZINKIE (Location/Symptom, Timing/Onset, Context/Setting, Quality, Duration, Modifying Factors, Severity) Note limiting factors. Limitations to History: none Historian: self Records reviewed: EMR inpatient and outpatient notes, Care Everywhere Jerad Tracy is a 48 y.o. female who presents to the emergency department complaining of left lowerextremity numbness, pain, has a known disc herniation to L4, L5 and is scheduled for surgery on , is on oxycodone, Zanaflex with minimal relief of symptoms. Denies any new urinary or bowel incontinence. ROS: Review of Systems 14 systems reviewed and otherwise acutely negative except as in the OUZINKIE. Past History Past Medical History: Diagnosis Date Anxiety Arthritis Bipolar disorder Chronic pain disorder Depression HCV (hepatitis C virus) 2013 treated and resolved Herniated lumbar intervertebral disc Liver disease stage 3 - stable Neuropathic pain Plan: Thoracic Laminectomy for Spinal Cord Stimulator Leads; Generator Implant 11/21/23 Obesity Vision loss Past Surgical History: Procedure Laterality Date ADENOIDECTOMY BUNIONECTOMY Bilateral CHOLECYSTECTOMY COLONOSCOPY DENTAL SURGERY Bilateral all teeth removed, dentures HYSTERECTOMY MYRINGOTOMY W/ TUBES Bilateral SPINAL CORD STIMULATOR IMPLANT 09/23/2023 Percutaneous Thoracic Spinal Cord Stimulator Leads and Generator Placement SPINAL CORD STIMULATOR REMOVAL 10/14/2023 SPINAL CORD STIMULATOR TRIAL W/ LAMINOTOMY 08/21/2023 Percutaneous Thoracic Spinal Cord Stimulator Trial TONSILLECTOMY Social History Socioeconomic History Marital status: Significant Other Tobacco Use Smoking status: Every Day Current packs/day: 0.50 Average packs/day: 0.5 packs/day for 32.8 years (16.4 ttl pk-yrs) Types: Cigarettes Start date: 1991 Smokeless tobacco: Never Vaping Use Vaping status: Never Used Substance and Sexual Activity Alcohol use: Never Drug use: Not Currently Comment: last use 2016- heroin Sexual activity: Defer Social Drivers of Health Financial Resource Strain: Low Risk (01/07/2024) Overall Financial Resource Strain (CARDIA) Difficulty of Paying Living Expenses: Not very hard Food Insecurity: No Food Insecurity (01/07/2024) Hunger Vital Sign Worried About Running Out of Food in the Last Year: Never true Ran Out of Food in the Last Year: Never true Transportation Needs: No Transportation Needs (01/07/2024) PRAPARE - Transportation Lack of Transportation (Medical): No Lack of Transportation (Non-Medical): No Physical Activity: Inactive (01/03/2024) Exercise Vital Sign Days of Exercise per Week: 0 days Minutes of Exercise per Session: 0 min Stress: No Stress Concern Present (01/03/2024) [place] [employer] - Occupational Stress Questionnaire Feeling of Stress : Not at all Social Connections: Socially Isolated (01/03/2024) Social Connection and Isolation Panel [NHANES] Frequency of Communication with Friends and Family: More than three times a week Frequency of Social Gatherings with Friends and Family: Once a week Attends Druze Services: Never Active Member of Clubs or Organizations: No Attends Club or Organization Meetings: Never Marital Status: Intimate Partner Violence: Not At Risk (01/07/2024) Humiliation, Afraid, Rape, and Kick questionnaire Fear of Current or Ex-Partner: No Emotionally Abused: No Physically Abused: No Sexually Abused: No Housing Stability: Low Risk (01/07/2024) Housing Stability Vital Sign Unable to Pay for Housing in the Last Year: No Number of Times Moved in the Last Year: 0 Homeless in the Last Year: No Medications/Allergies Previous Medications DIPHENHYDRAMINE (SOMINEX) 25 MG TABLET Take 1 tablet (25 mg) by mouth every 6 hours for 5 days. DOCUSATE SODIUM (COLACE) 100 MG CAPSULE Take 1 capsule (100 mg) by mouth 2 times a day. FLUOXETINE (PROZAC) 60 MG TABLET Take 1 tablet (60 mg) by mouth once daily. HYDROXYZINE HCL (ATARAX) 25 MG TABLET Take 1 tablet (25 mg) by mouth 3 times a day as needed for anxiety. METHOCARBAMOL (ROBAXIN) 500 MG TABLET Take 1 tablet (500 mg) by mouth 3 times a day for 7 days. NALOXONE (NARCAN) 4 MG/0.1 ML NASAL SPRAY Administer 1 spray (4 mg) into affected nostril(s) if needed for opioid reversal. May repeat every 2-3 minutes if needed, alternating nostrils, until medicalassistance becomes available. OMEPRAZOLE (PRILOSEC) [address] CAPSULE Take 2 capsules (40 mg) by mouth once daily. Do not crush orchew. OXYCODONE (ROXICODONE) 10 MG IMMEDIATE RELEASE TABLET Take 1 tablet (10 mg) by mouth every 4 hours if needed for severe pain (7 - 10). TIZANIDINE (ZANAFLEX) 2 MG CAPSULE Take 1 capsule (2 mg) by mouth 3 times a day. ZOLPIDEM (AMBIEN) 5 MG TABLET Take 1 tablet (5 mg) by mouth as needed at bedtime for sleep. Allergies Allergen Reactions Penicillins Hives Reported hives as a child. Prescribed cephalexin September 2023 and reported itching only (no rash/hives). Also reports having taken amoxicillin in the past and tolerated. Gabapentin Headache Tylenol [Acetaminophen] Unknown History of stage III liver fibrosis Nabumetone Nausea/vomiting and Rash Physical Exam ED Triage Vitals [01/21/24 1430] Temperature Heart Rate Respirations BP 36.9 C (98.4 F) 93 17 122/75 Pulse Ox Temp src Heart Rate Source Patient Position 95 % -- -- -- BP Location FiO2 (%) -- -- Physical Exam GENERAL: The patient appears nourished and normally developed. Vital signs as documented. HEENT: Head normocephalic, atraumatic, EOMs intact, PERRLA, Mucous membranes moist. Nares patent without copious rhinorrhea. No lymphadenopathy. PULMONARY: Lungs are clear to auscultation, without any respiratory distress. Able to speak full sentences, no accessory muscle use CARDIAC: Normal rate. No murmurs, rubs or gallops ABDOMEN: Soft, non distended, non tender, BS positive x 4 quadrants, No rebound or guarding, no peritoneal signs, no CVA tenderness, no masses or organomegaly MUSCULOSKELETAL: Able to ambulate, Non edematous, with no obvious deformities. Pulses intact distal SKIN: Good color, with no significant rashes. No pallor. NEURO: No obvious neurological deficits, normal sensation and strength bilaterally. Able to follow commands, NIH 0, CN 2-12 intact. Diagnostics Labs: Labs Reviewed - No data to display Radiographs: No orders to display Assessment In brief, Jerad Tracy is a 48 y.o. female who presented to the emergency department for acute on chronic back pain Plan Analgesics Differentials Sciatica Strain Cauda equina ED Course Diagnoses as of 01/21/24 1734 Acute left-sided low back pain with left-sided sciatica Visit Vitals BP 161/87 (BP Location: Right arm, Patient Position: Sitting) Pulse 88 Temp 36.9 C (98.4 F) Resp 16 Ht 1.6 m (5' 3 ) Wt 113 kg (250 lb) SpO2 96% BMI 44.29 kg/m OB Status Hysterectomy Smoking Status Every Day BSA 2.24 m Medications ketorolac (Toradol) injection 30 mg (has no administration in time range) morphine injection 4 mg (has no administration in time range) diazePAM (Valium) tablet 5 mg (has no administration in time range) Plan of care discussed, patient is stable appearing, in no distress, has known disc herniation withsciatica and needs a dose of medication to get her home, denies any urinary symptoms, fevers, chills, reports left lower extremity numbness, tingling and feels the same when her sciatica acts up due to the disc herniation, has pain medication at home and has an appointment for surgery on the , discharged home in stable condition, educated on any worsening signs and symptoms to return to the emergency department Final Impression 1. Acute left-sided low back pain with left-sided sciatica DISPOSITION Disposition: Discharge Patient condition is: Stable Comment: Please note this report has been produced using speech recognition software and may contain errors related to that system including errors in grammar, punctuation, and spelling, as well as words and phrases that may be inappropriate. If there are any questions or concerns please feel free to contact the dictating provider for clarification. ROX Rivero APRN-CNP 01/21/24 1733 [facility] Work Phone: 1(338) 714-554310-22-2024 Hospital Discharge instructions Patient Education 01/14/2024 20:55:36 Chronic Back Pain Chronic Back Pain Chronic back pain is back pain that lasts longer than 3 months. The cause of your back pain may notbe known. Some common causes include: Wear and tear (degenerative disease) of the bones, disks, or tissues that connect bones to each other (ligaments) in your back. Inflammation and stiffness in your back (arthritis). If you have chronic back pain, you may have times when the pain is more intense (flare-ups). You can also learn to manage the pain with home care. Follow these instructions at home: Watch for any changes in your symptoms. Take these actions to help with your pain: Managing pain and stiffness If told, put ice on the painful area. You may be told to apply ice for the first 24 48 hours after a flare-up starts. ?Put ice in a plastic bag. ?Place a towel between your skin and the bag. ?Leave the ice on for 20 minutes, 2 3 times per day. If told, apply heat to the affected area as often as told by your health care provider. Use the heat source that your provider recommends, such as a moist heat pack or a heating pad. ?Place a towel between your skin and the heat source. ?Leave the heat on for 20 30 minutes. If your skin turns bright red, remove the ice or heat right away to prevent skin damage. The risk of damage is higher if you cannot feel pain, heat, or cold. Try soaking in a warm tub. Activity Avoid bending and other activities that make the pain worse. Have good posture when you stand or sit. ?When you stand, keep your upper back and neck straight, with your shoulders pulled back. Avoid slouching. ?When you sit, keep your back straight. Relax your shoulders. Do not round your shoulders or pull them backward. Do not sit or hvac design engineer one place for too long. Take brief periods of rest during the day. This will reduce your pain. Resting in a lying or standing position is often better than sitting to rest. When you rest for longer periods, mix in some mild activity or stretching between periods of rest. This will help to prevent stiffness and pain. Get regular exercise. Ask your provider what activities are safe for you. You may have to avoid lifting. Ask your provider how much you can safely lift. If you do lift, always use the right technique. This means you should: ?Bend your knees. ?Keep the load close to your body. ?Avoid twisting. Medicines Take ahqa-kgl-gawxkfq and prescription medicines only as told by your provider. You may need to take medicines for pain and inflammation. These may be taken by mouth or put on theskin. You may also be given muscle relaxants. Ask your provider if the medicine prescribed to you: ?Requires you to avoid driving or using machinery. ?Can cause constipation. You may need to take these actions to prevent or treat constipation: ?Drink enough fluid to keep your pee (urine) pale yellow. ?Take vspl-mfi-vjxlkfh or prescription medicines. ?Eat foods that are high in fiber, such as beans, whole grains, and fresh fruits and vegetables. ?Limit foods that are high in fat and processed sugars, such as fried or sweet foods. General instructions Sleep on a firm mattress in a comfortable position. Try lying on your side with your knees slightlybent. If you lie on your back, put a pillow under your knees. Do not use any products that contain nicotine or tobacco. These products include cigarettes, chewing tobacco, and vaping devices, such as e-cigarettes. If you need help quitting, ask your provider. Contact a health care provider if: You have pain that does not get better with rest or medicine. You have new pain. You have a fever. You lose weight quickly. You have trouble doing your normal activities. You feel weak or numb in one or both of your legs or feet. Get help right away if: You are not able to control when you pee or poop. You have severe back pain and: ?Nausea or vomiting. ?Pain in your chest or abdomen. ?Shortness of breath. ?You faint. These symptoms may be an emergency. Get help right away. Call 911. Do not wait to see if the symptoms will go away. Do not drive yourself to the hospital. This information is not intended to replace advice given to you by your health care provider. Make sure you discuss any questions you have with your health care provider. Document Revised: 10/29/2022 Document Reviewed: 10/29/2022 [employer] Patient Education 2023 [employer]. Follow Up Care 01/14/2024 19:16:02 With:Cheyanne Rosas Address: [address] Business (1) When:01/17/2024 20:53:26 Comments:Call the office of your primary care [...] you develop any new or worsening symptoms. Seek immediate medical attention if you develop: increasing pain, numbness, tingling, weakness, loss of motion in your arms or legs, loss of control of your urine or stool, fever, abdominal pain, chest pain, shortness of breath, or any new or worsening symptoms. [facility] 10-22-2024 NoteED Patient Education Note Orthopedics Chronic Back Pain Chronic back pain is back pain that lasts longer than 3 months. The cause of your back pain may notbe known. Some common causes include: ??? Wear and tear (degenerative disease) of the bones, disks, or tissues that connect bones to eachother (ligaments) in your back. ??? Inflammation and stiffness in your back (arthritis). If you have chronic back pain, you may have times when the pain is more intense (flare-ups). You can also learn to manage the pain with home care. Follow these instructions at home: Watch for any changes in your symptoms. Take these actions to help with your pain: Managing pain and stiffness ??? If told, put ice on the painful area. You may be told to apply ice for the first 24?48 hours after a flare-up starts. ? Put ice in a plastic bag. ? Place a towel between your skin and the bag. ? Leave the ice on for 20 minutes, 2?3 times per day. ??? If told, apply heat to the affected area as often as told by your health care provider. Use theheat source that your provider recommends, such as a moist heat pack or a heating pad. ? Place a towel between your skin and the heat source. ? Leave the heat on for 20?30 minutes. ??? If your skin turns bright red, remove the ice or heat right away to prevent skin damage. The risk of damage is higher if you cannot feel pain, heat, or cold. ??? Try soaking in a warm tub. Activity ??? Avoid bending and other activities that make the pain worse. ??? Have good posture when you stand or sit. ? When you stand, keep your upper back and neck straight, with your shoulders pulled back. Avoid slouching. ? When you sit, keep your back straight. Relax your shoulders. Do not round your shoulders or pull them backward. ??? Do not sit or hvac design engineer one place for too long. ??? Take brief periods of rest during the day. This will reduce your pain. Resting in a lying or standing position is often better than sitting to rest. ??? When you rest for longer periods, mix in some mild activity or stretching between periods of rest. This will help to prevent stiffness and pain. ??? Get regular exercise. Ask your provider what activities are safe for you. ??? You may have to avoid lifting. Ask your provider how much you can safely lift. If you do lift, always use the right technique. This means you should: ? Bend your knees. ? Keep the load close to your body. ? Avoid twisting. Medicines ??? Take thht-dol-fakxscy and prescription medicines only as told by your provider. ??? You may need to take medicines for pain and inflammation. These may be taken by mouth or put onthe skin. You may also be given muscle relaxants. ??? Ask your provider if the medicine prescribed to you: ? Requires you to avoid driving or using machinery. ? Can cause constipation. You may need to take these actions to prevent or treat constipation: ? Drink enough fluid to keep your pee (urine) pale yellow. ? Take jytz-jui-smepukb or prescription medicines. ? Eat foods that are high in fiber, such as beans, whole grains, and fresh fruits and vegetables. ? Limit foods that are high in fat and processed sugars, such as fried or sweet foods. General instructions ??? Sleep on a firm mattress in a comfortable position. Try lying on your side with your knees slightly bent. If you lie on your back, put a pillow under your knees. ??? Do not use any products that contain nicotine or tobacco. These products include cigarettes, chewing tobacco, and vaping devices, such as e-cigarettes. If you need help quitting, ask your provider. Contact a health care provider if: ??? You have pain that does not get better with rest or medicine. ??? You have new pain. ??? You have a fever. ??? You lose weight quickly. ??? You have trouble doing your normal activities. ??? You feel weak or numb in one or both of your legs or feet. Get help right away if: ??? You are not able to control when you pee or poop. ??? You have severe back pain and: ? Nausea or vomiting. ? Pain in your chest or abdomen. ? Shortness of breath. ? You faint. These symptoms may be an emergency. Get help right away. Call 911. ??? Do not wait to see if the symptoms will go away. ??? Do not drive yourself to the hospital. This information is not intended to replace advice given to you by your health care provider. Make sure you discuss any questions you have with your health care provider. Document Revised: 10/29/2022 Document Reviewed: 10/29/2022 [employer] Patient Education ? 2023 [employer].[facility] 01-14-2024 Evaluation + Plan noteExtracted from: Title:ED Note Author:Nikhil Tubbs DO Date:1 Chronic back pain (M54.9: Do rsalgia, unspecified) Other chronic pain (G89.29: Other chronic pain) Orders: morphine, 8 mg = 2 mL, Injection, IntraMuscular, Once, Stop date 01/14/24 20:52:00 EDT, STAT, Start date 01/14/24 20:52:00 EDT, 01/14/24 20:52:00 EDT Future Scheduled Tests Laboratory* TSH With T4fr Reflex 07/17/23 * Urinalysis with Micro 07/17/23 * Lipid Panel 07/17/23 * Drug Screen Urine 07/17/23 Radiology* MA Mamm Screen w/CAD if perf and 3D Kenan 07/17/23 [facility] 10-22-2024 History of Present illness Narrative* Judah Woodard MD - 01/14/2024 1:00 PM EDT Chief Complaint: Jerad Tracy is a 48 y.o. woman here for lumbar disc herniation with radiculopathy HPI Jerad had recent ED visit and hospitalization for worsening low back pain. Has had low back pain for years, significantly worsened in May 2022. 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 Temporarily had spinal cord stimulator placed 09/23/23 which worked well, however this was removed on 10/14/23 with concern for infection - subcutaneous seroma. She presented to ED on 01/04/24 after wakingup with numbness of her left leg and perineal area. Has had multiple ED visits with same symptoms. The pain goes down posterior lateral thigh and down lateral calf mostly with numb, burning feeling. Mri shows lumbar disc herniation as described in the assessment and plan section. She has done physic al therapy at [facility] and continues to do home exercises. She takes oxycodone and NSAIDs as needed. Review of Systems All other systems reviewed and negative other than what is already stated in this note. Past Medical History: Diagnosis Date Anxiety Arthritis Bipolar disorder Chronic pain disorder Depression HCV (hepatitis C virus) 2013 treated and resolved Herniated lumbar intervertebral disc Liver disease stage 3 - stable Neuropathic pain Plan: Thoracic Laminectomy for Spinal Cord Stimulator Leads; Generator Implant 11/21/23 Obesity Vision loss Patient Active Problem List Diagnosis Current smoker Continuous opioid dependence (Multi) Chronic back pain greater than 3 months duration Neuropathic pain Anxiety Depression Obesity Chronic low back pain Postoperative infection, unspecified type, initial encounter Wound dehiscence Acute bilateral low back pain without sciatica Hepatic fibrosis, advanced fibrosis 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 Lumbar radiculopathy Chronic low back pain without sciatica, unspecified back pain laterality Past Surgical History: Procedure Laterality Date ADENOIDECTOMY BUNIONECTOMY Bilateral CHOLECYSTECTOMY COLONOSCOPY DENTAL SURGERY Bilateral all teeth removed, dentures HYSTERECTOMY MYRINGOTOMY W/ TUBES Bilateral SPINAL CORD STIMULATOR IMPLANT 09/23/2023 Percutaneous Thoracic Spinal Cord Stimulator Leads and Generator Placement SPINAL CORD STIMULATOR REMOVAL 10/14/2023 SPINAL CORD STIMULATOR TRIAL W/ LAMINOTOMY 08/21/2023 Percutaneous Thoracic Spinal Cord Stimulator Trial TONSILLECTOMY Family History Problem Relation Name Age of Onset Lung disease Mother COPD Mother Lung disease Father Lung cancer Father Heart disease Father Social History Tobacco Use Smoking status: Every Day Current packs/day: 0.50 Average packs/day: 0.5 packs/day for 32.8 years (16.4 ttl pk-yrs) Types: Cigarettes Start date: 1991 Smokeless tobacco: Never Vaping Use Vaping status: Never Used Substance Use Topics Alcohol use: Never Drug use: Not Currently Comment: last use 2016- heroin Current Outpatient Medications: docusate sodium (Colace) 100 mg capsule, Take 1 capsule (100 mg) by mouth 2 times a day., Disp: 60 capsule, Rfl: 0 FLUoxetine (PROzac) 60 mg tablet, Take 1 tablet (60 mg) by mouth once daily., Disp: 30 tablet, Rfl:6 hydrOXYzine HCL (Atarax) 25 mg tablet, Take 1 tablet (25 mg) by mouth 3 times a day as needed for anxiety., Disp: , Rfl: naloxone (Narcan) 4 mg/0.1 mL nasal spray, Administer 1 spray (4 mg) into affected nostril(s) if needed for opioid reversal. May repeat every 2-3 minutes if needed, alternating nostrils, until medical assistance becomes available., Disp: 2 each, Rfl: 0 omeprazole (PriLOSEC) [address] capsule, Take 2 capsules (40 mg) by mouth once daily. Do not crush or chew., Disp: , Rfl: diphenhydrAMINE (Sominex) 25 mg tablet, Take 1 tablet (25 mg) by mouth every 6 hours for 5 days., Disp: 20 tablet, Rfl: 0 methocarbamol (Robaxin) 500 mg tablet, Take 1 tablet (500 mg) by mouth 3 times a day for 7 days., Disp: 21 tablet, Rfl: 0 oxyCODONE (Roxicodone) 10 mg immediate release tablet, Take 1 tablet (10 mg) by mouth every 4 hoursif needed for severe pain (7 - 10). (Patient not taking: Reported on 01/14/2024), Disp: 10 tablet, Rfl: 0 tiZANidine (Zanaflex) 2 mg capsule, Take 1 capsule (2 mg) by mouth 3 times a day. (Patient not taking: Reported on 01/14/2024), Disp: , Rfl: zolpidem (Ambien) 5 mg tablet, Take 1 tablet (5 mg) by mouth as needed at bedtime for sleep. (Patient not taking: Reported on 01/14/2024), Disp: 10 tablet, Rfl: 0 Objective Vitals: 01/14/24 1338 BP: 141/82 Pulse: 88 Temp: 36.2 C (97.2 F) no acute distress, obese woman appearing her stated age normal sclera moist mucus membranes no peripheral edema symmetric chest rise nondistended abdomen alert and oriented, pupils equal and round, extraocular movements intact, full strength in all extremities, normal sensation to light touch throughout, normal symmetric reflexes, no dysmetria normal mood Assessment/Plan I personally reviewed MRI of the lumbar spine done on 01/10/2024 which shows a left L4-5 paracentral disc herniation with severe left lateral recess stenosis and compression of the left L5 nerve root. I also reviewed upright x-rays of the lumbar spine done on 01/02/2024, which does not show any significant instability/mobile spondylolisthesis. Because of the severity of neural compression and failure of conservative measures, I recommended surgery via a minimally invasive left L4-5 hemilaminotomy and microdiscectomy. I explained the surgery and risks of the surgery including weakness, numbness, csf leak, infection, and spinal instability. I reiterated because of her morbid obesity (BMI = 44.29), she is at markedly higher perioperative risk including postoperative infection and wound dehiscence. Judah Woodard MD documented in this [facility] Work Phone: 1(359) 465-410810-21-2024 Emergency department Note* Kecia Huff, HIM SPECIALIST-LEAD PROGRAMMER - 01/13/2024 1:07 PM EDT HPI Chief Complaint Patient presents with Back Pain Pt here for low back pain sees the surgeon tomorrow can't take the pain 48-year-old female presents emergency department, complaining of back pain. Patient states she has known slipped disc, recently at MRI and is due to see spine surgery at [facility] tomorrow. Patient states today pain is worse. States she has had some numbness in the left leg and groin area but states this is been ongoing for quite some time. She was having some numbness in the right leg but that has resolved. No new falls. Patient states her home medications for pain have not helped with her discomfort, requesting dose of pain medication. 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 Patient History Past Medical History: Diagnosis Date Anxiety Arthritis Bipolar disorder Chronic pain disorder Depression HCV (hepatitis C virus) 2013 treated and resolved Herniated lumbar intervertebral disc Liver disease stage 3 - stable Neuropathic pain Plan: Thoracic Laminectomy for Spinal Cord Stimulator Leads; Generator Implant 11/21/23 Obesity Vision loss Past Surgical History: Procedure Laterality Date ADENOIDECTOMY BUNIONECTOMY Bilateral CHOLECYSTECTOMY COLONOSCOPY DENTAL SURGERY Bilateral all teeth removed, dentures HYSTERECTOMY MYRINGOTOMY W/ TUBES Bilateral SPINAL CORD STIMULATOR IMPLANT 09/23/2023 Percutaneous Thoracic Spinal Cord Stimulator Leads and Generator Placement SPINAL CORD STIMULATOR REMOVAL 10/14/2023 SPINAL CORD STIMULATOR TRIAL W/ LAMINOTOMY 08/21/2023 Percutaneous Thoracic Spinal Cord Stimulator Trial TONSILLECTOMY Family History Problem Relation Name Age of Onset Lung disease Mother COPD Mother Lung disease Father Lung cancer Father Heart disease Father Social History Tobacco Use Smoking status: Every Day Current packs/day: 0.50 Average packs/day: 0.5 packs/day for 32.8 years (16.4 ttl pk-yrs) Types: Cigarettes Start date: 1991 Smokeless tobacco: Never Vaping Use Vaping status: Never Used Substance Use Topics Alcohol use: Never Drug use: Not Currently Comment: last use 2016- heroin Physical Exam ED Triage Vitals [01/13/24 1351] Temperature Heart Rate Respirations BP 36.6 C (97.9 F) 91 16 153/78 Pulse Ox Temp src Heart Rate Source Patient Position 96 % -- -- -- BP Location FiO2 (%) -- -- Physical Exam Gen.: Vitals noted no distress. Afebrile. Heart: Regular rate rhythm no murmur. Lungs: Clear to auscultation bilaterally with good aeration and no adventitious breath sounds. Abdomen: Soft, nontender, nonsurgical throughout. Normoactive bowel sounds. No pulsatile masses or abdominal bruits to auscultation. Back: There is tenderness to palpation in the midline and paraspinal planes throughout the LS. Normal motor sensory, symmetric reflexes, strong equal peripheral pulses, normal Babinski's bilaterally. Skin: No rash. Neuro: No focal neurologic deficits, NIH score of 0. ED Course & MDM Diagnoses as of 01/13/24 1421 Acute midline low back pain without sciatica No data recorded [place] Coma Scale Score: 15 (01/13/24 1354 : Elke Alfaro RN) Medical Decision Making I did review the patient's MRI that was performed 01/09. She is due to follow-up with spine surgerytomorrow. Given dose of IM morphine in the department for her pain, discharged home to follow-up as scheduled. Discussed return with any worsening symptoms or additional concerns. Procedure Procedures ROX [place] 01/13/24 1442 documented in this [facility] Work Phone: 1(277) 259-984710-21-2024 Physician Emergency department Note* Kecia David Huff, HIM SPECIALIST-LEAD PROGRAMMER - 01/13/2024 1:07 PM EDT HPI Chief Complaint Patient presents with Back Pain Pt here for low back pain sees the surgeon tomorrow can't take the pain 48-year-old female presents emergency department, complaining of back pain. Patient states she has known slipped disc, recently at MRI and is due to see spine surgery at [facility] tomorrow. Patient states today pain is worse. States she has had some numbness in the left leg and groin area but states this is been ongoing for quite some time. She was having some numbness in the right leg but that has resolved. No new falls. Patient states her home medications for pain have not helped with her discomfort, requesting dose of pain medication. 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 Patient History Past Medical History: Diagnosis Date Anxiety Arthritis Bipolar disorder Chronic pain disorder Depression HCV (hepatitis C virus) 2013 treated and resolved Herniated lumbar intervertebral disc Liver disease stage 3 - stable Neuropathic pain Plan: Thoracic Laminectomy for Spinal Cord Stimulator Leads; Generator Implant 11/21/23 Obesity Vision loss Past Surgical History: Procedure Laterality Date ADENOIDECTOMY BUNIONECTOMY Bilateral CHOLECYSTECTOMY COLONOSCOPY DENTAL SURGERY Bilateral all teeth removed, dentures HYSTERECTOMY MYRINGOTOMY W/ TUBES Bilateral SPINAL CORD STIMULATOR IMPLANT 09/23/2023 Percutaneous Thoracic Spinal Cord Stimulator Leads and Generator Placement SPINAL CORD STIMULATOR REMOVAL 10/14/2023 SPINAL CORD STIMULATOR TRIAL W/ LAMINOTOMY 08/21/2023 Percutaneous Thoracic Spinal Cord Stimulator Trial TONSILLECTOMY Family History Problem Relation Name Age of Onset Lung disease Mother COPD Mother Lung disease Father Lung cancer Father Heart disease Father Social History Tobacco Use Smoking status: Every Day Current packs/day: 0.50 Average packs/day: 0.5 packs/day for 32.8 years (16.4 ttl pk-yrs) Types: Cigarettes Start date: 1991 Smokeless tobacco: Never Vaping Use Vaping status: Never Used Substance Use Topics Alcohol use: Never Drug use: Not Currently Comment: last use 2016- heroin Physical Exam ED Triage Vitals [01/13/24 1351] Temperature Heart Rate Respirations BP 36.6 C (97.9 F) 91 16 153/78 Pulse Ox Temp src Heart Rate Source Patient Position 96 % -- -- -- BP Location FiO2 (%) -- -- Physical Exam Gen.: Vitals noted no distress. Afebrile. Heart: Regular rate rhythm no murmur. Lungs: Clear to auscultation bilaterally with good aeration and no adventitious breath sounds. Abdomen: Soft, nontender, nonsurgical throughout. Normoactive bowel sounds. No pulsatile masses or abdominal bruits to auscultation. Back: There is tenderness to palpation in the midline and paraspinal planes throughout the LS. Normal motor sensory, symmetric reflexes, strong equal peripheral pulses, normal Babinski's bilaterally. Skin: No rash. Neuro: No focal neurologic deficits, NIH score of 0. ED Course & MDM Diagnoses as of 01/13/24 1421 Acute midline low back pain without sciatica No data recorded [place] Coma Scale Score: 15 (01/13/24 1354 : Elke Alfaro RN) Medical Decision Making I did review the patient's MRI that was performed 01/09. She is due to follow-up with spine surgerytomorrow. Given dose of IM morphine in the department for her pain, discharged home to follow-up as scheduled. Discussed return with any worsening symptoms or additional concerns. Procedure Procedures ROX [place] 01/13/24 1442 [facility] Work Phone: 1(429) 671-199810-18-2024 Emergency department Note* Germaine Blair PA-C - 01/10/2024 5:35 PM EDT Patient is a 48-year-old female who presents to the emergency room with a chief complaint of left leg weakness and numbness. Patient states that she has a history of chronic low back pain. She has moderate canal stenosis at L4-L5 secondary to disc bulge and crowding of the cauda equina nerve roots which is slightly progressed from previous MRI. Patient states that she was admitted to the hospital2 separate times recently once on December 31 and once on January 05. She was discharged on January 07 in which originally they recommended patient go to a SNF secondary to difficulty caring for self. Patient did not meet qualification for a SNF at the time of discharge and was discharged home with [facility]. Patient states that she is developing worsening weakness and numbness of her left lower extremity. She states that initially only a portion of her left lower extremity was numb and today the entire lower extremity is numb. She states that she has now fallen twice today secondary to the weakness and numbness. She also reports that she does not have any sensation to her saddle region. She states that she has not been incontinent of urine but reports that she has been using the restroomevery hour as she is afraid that she will not know when she has to go as she has no sensation to her saddle region. Patient does have a history of a pain pump that was removed in September. She denies anynew injury. No fever or chills. No nausea or vomiting. Review of Systems Constitutional: Negative for chills and fever. HENT: Negative for ear pain and sore throat. Eyes: Negative for pain and visual disturbance. Respiratory: Negative for cough and shortness of breath. Cardiovascular: Negative for chest pain and palpitations. Gastrointestinal: Negative for abdominal pain and vomiting. Genitourinary: Negative for dysuria and hematuria. Musculoskeletal: Positive for back pain. Negative for arthralgias. Skin: Negative for color change and rash. Neurological: Positive for weakness and numbness. Negative for seizures and syncope. All other systems reviewed and are negative. Physical Exam Vitals and nursing note reviewed. Constitutional: General: She is not in acute distress. Appearance: Normal appearance. She is well-developed. HENT: Head: Normocephalic and atraumatic. Eyes: Extraocular Movements: Extraocular movements intact. Conjunctiva/sclera: Conjunctivae normal. Pupils: Pupils are equal, round, and reactive to light. Cardiovascular: Rate and Rhythm: Normal rate and regular rhythm. Heart sounds: No murmur heard. Pulmonary: Effort: Pulmonary effort is normal. No respiratory distress. Breath sounds: Normal breath sounds. Abdominal: General: There is no distension. Palpations: Abdomen is soft. There is no mass. Tenderness: There is no abdominal tenderness. There is no guarding or rebound. Hernia: No hernia is present. Musculoskeletal: General: No swelling. Normal range of motion. Cervical back: Neck supple. Skin: General: Skin is warm and dry. Capillary Refill: Capillary refill takes less than 2 seconds. Neurological: Mental Status: She is alert and oriented to person, place, and time. Cranial Nerves: No cranial nerve deficit. Sensory: Sensory deficit (decreased sensation to left lower extremity with soft and sharp sensation) present. Motor: Weakness (left lower extremity weakness) present. Deep Tendon Reflexes: Reflex Scores: Patellar reflexes are 2+ on the right side and 2+ on the left side. Comments: Patient reports decreased sensation to left lower extremity. She reports weakness, but onexam weakness is inconsistent. When asked to lift her leg off of the bed she is unable to do such but when reflexes were checked and patient had to lift legs back in bed she did so without any difficulty. Psychiatric: Mood and Affect: Mood normal. Labs Reviewed - No data to display MR lumbar spine wo IV contrast Final Result 1. Unchanged circumferential disc bulge with superimposed left subarticular disc herniation at the level of L4-L5, contributing to [id number] spinal canal and mild left-sided neural foraminal narrowing and likely abutment/effacement of the traversing left L5 nerve. 2. No new abnormality is identified in the lumbar spine in the interim to recent MRI on 01/01/2024. No new posterior disc contour abnormality or spinal canal stenosis is present. MACRO: None Signed by: Bernadette Tapia 01/10/2024 9:34 PM Dictation workstation: [id number] Procedures Medical Decision Making I consulted with neurosurgeon, Dr. Estrella who reviewed the patient's MRI that she had previously performed on December 31. He states that given the presentation of the MRI, there would have to be a significant change and given the location of her central stenosis he does not feel that presentation isconsistent. For completeness he recommended a repeat MRI of her lumbar spine without contrast. Patient is a 48-year-old female who presents to the emergency room with a chief complaint of left leg weakness and numbness. This has been an ongoing issue since December 31 in which she was admitted to the hospital at [facility] with worsening of symptoms. She had an MRI performed at that time which showed moderate canal stenosis at L4-5 secondary to disc bulge with crowding of the cauda equina nerve root slightly progressed from previous. I did consult with neurosurgeon on-call, Dr. Estrella who recommended MRI for completeness. MRI performed per recommendation which today shows unchanged circumferential disc bulge with superimposed left subarticular disc herniation at the level of L4-L5 with mildto moderate spinal canal and mild left-sided neural foraminal narrowing with no new abnormality identified in the lumbar spine. Given that the MRI is unchanged and given an inconsistent exam, she will be discharged home with recommended follow-up with her neurosurgeon as planned. She did request another dose of IV pain medication in which I explained to patient that I did not feel comfortable giving this and offered her p.o. medication which she gladly took. Amount and/or Complexity of Data Reviewed Radiology: ordered. Decision-making details documented in ED Course. Diagnoses as of 01/10/242217 Chronic low back pain with sciatica, sciatica laterality unspecified, unspecified back pain laterality Left leg weakness Decreased sensation of leg Lumbar disc herniation Germaine Blair PA-C 01/10/242217 documented in this [facility] Work Phone: 1(326) 341-728710-18-2024 Physician Emergency department Note* Germaine Blair PA-C - 01/10/2024 5:35 PM EDT Patient is a 48-year-old female who presents to the emergency room with a chief complaint of left leg weakness and numbness. Patient states that she has a history of chronic low back pain. She has moderate canal stenosis at L4-L5 secondary to disc bulge and crowding of the cauda equina nerve roots which is slightly progressed from previous MRI. Patient states that she was admitted to the hospital2 separate times recently once on December 31 and once on January 05. She was discharged on January 07 in which originally they recommended patient go to a SNF secondary to difficulty caring for self. Patient did not meet qualification for a SNF at the time of discharge and was discharged home with [facility]. Patient states that she is developing worsening weakness and numbness of her left lower extremity. She states that initially only a portion of her left lower extremity was numb and today the entire lower extremity is numb. She states that she has now fallen twice today secondary to the weakness and numbness. She also reports that she does not have any sensation to her saddle region. She states that she has not been incontinent of urine but reports that she has been using the restroomevery hour as she is afraid that she will not know when she has to go as she has no sensation to her saddle region. Patient does have a history of a pain pump that was removed in September. She denies anynew injury. No fever or chills. No nausea or vomiting. Review of Systems Constitutional: Negative for chills and fever. HENT: Negative for ear pain and sore throat. Eyes: Negative for pain and visual disturbance. Respiratory: Negative for cough and shortness of breath. Cardiovascular: Negative for chest pain and palpitations. Gastrointestinal: Negative for abdominal pain and vomiting. Genitourinary: Negative for dysuria and hematuria. Musculoskeletal: Positive for back pain. Negative for arthralgias. Skin: Negative for color change and rash. Neurological: Positive for weakness and numbness. Negative for seizures and syncope. All other systems reviewed and are negative. Physical Exam Vitals and nursing note reviewed. Constitutional: General: She is not in acute distress. Appearance: Normal appearance. She is well-developed. HENT: Head: Normocephalic and atraumatic. Eyes: Extraocular Movements: Extraocular movements intact. Conjunctiva/sclera: Conjunctivae normal. Pupils: Pupils are equal, round, and reactive to light. Cardiovascular: Rate and Rhythm: Normal rate and regular rhythm. Heart sounds: No murmur heard. Pulmonary: Effort: Pulmonary effort is normal. No respiratory distress. Breath sounds: Normal breath sounds. Abdominal: General: There is no distension. Palpations: Abdomen is soft. There is no mass. Tenderness: There is no abdominal tenderness. There is no guarding or rebound. Hernia: No hernia is present. Musculoskeletal: General: No swelling. Normal range of motion. Cervical back: Neck supple. Skin: General: Skin is warm and dry. Capillary Refill: Capillary refill takes less than 2 seconds. Neurological: Mental Status: She is alert and oriented to person, place, and time. Cranial Nerves: No cranial nerve deficit. Sensory: Sensory deficit (decreased sensation to left lower extremity with soft and sharp sensation) present. Motor: Weakness (left lower extremity weakness) present. Deep Tendon Reflexes: Reflex Scores: Patellar reflexes are 2+ on the right side and 2+ on the left side. Comments: Patient reports decreased sensation to left lower extremity. She reports weakness, but onexam weakness is inconsistent. When asked to lift her leg off of the bed she is unable to do such but when reflexes were checked and patient had to lift legs back in bed she did so without any difficulty. Psychiatric: Mood and Affect: Mood normal. Labs Reviewed - No data to display MR lumbar spine wo IV contrast Final Result 1. Unchanged circumferential disc bulge with superimposed left subarticular disc herniation at the level of L4-L5, contributing to [id number] spinal canal and mild left-sided neural foraminal narrowing and likely abutment/effacement of the traversing left L5 nerve. 2. No new abnormality is identified in the lumbar spine in the interim to recent MRI on 01/01/2024. No new posterior disc contour abnormality or spinal canal stenosis is present. MACRO: None Signed by: Bernadette Tapia 01/10/2024 9:34 PM Dictation workstation: [id number] Procedures Medical Decision Making I consulted with neurosurgeon, Dr. Estrella who reviewed the patient's MRI that she had previously performed on December 31. He states that given the presentation of the MRI, there would have to be a significant change and given the location of her central stenosis he does not feel that presentation isconsistent. For completeness he recommended a repeat MRI of her lumbar spine without contrast. Patient is a 48-year-old female who presents to the emergency room with a chief complaint of left leg weakness and numbness. This has been an ongoing issue since December 31 in which she was admitted to the hospital at [facility] with worsening of symptoms. She had an MRI performed at that time which showed moderate canal stenosis at L4-5 secondary to disc bulge with crowding of the cauda equina nerve root slightly progressed from previous. I did consult with neurosurgeon on-call, Dr. Estrella who recommended MRI for completeness. MRI performed per recommendation which today shows unchanged circumferential disc bulge with superimposed left subarticular disc herniation at the level of L4-L5 with mildto moderate spinal canal and mild left-sided neural foraminal narrowing with no new abnormality identified in the lumbar spine. Given that the MRI is unchanged and given an inconsistent exam, she will be discharged home with recommended follow-up with her neurosurgeon as planned. She did request another dose of IV pain medication in which I explained to patient that I did not feel comfortable giving this and offered her p.o. medication which she gladly took. Amount and/or Complexity of Data Reviewed Radiology: ordered. Decision-making details documented in ED Course. Diagnoses as of 01/10/242217 Chronic low back pain with sciatica, sciatica laterality unspecified, unspecified back pain laterality Left leg weakness Decreased sensation of leg Lumbar disc herniation Germaine Blair PA-C 01/10/242217 [facility] Work Phone: 1(315) 556-910610-16-2024 Hospital course Narrative* Shelton DO Ebony - 01/08/2024 12:42 PM EDT Discharge Diagnosis Chronic low back pain without sciatica, unspecified back pain laterality Issues Requiring Follow-Up Follow-up with PCP, referral given for pain management (missed previous appointment due to inpatient status) Discharge Meds Medication List START taking these medications zolpidem 5 mg tablet; Commonly known as: Ambien; Take 1 tablet (5 mg) by mouth as needed at bedtime for sleep. CONTINUE taking these medications diphenhydrAMINE 25 mg tablet; Commonly known as: Sominex; Take 1 tablet (25 mg) by mouth every 6 hours for 5 days. docusate sodium 100 mg capsule; Commonly known as: Colace; Take 1 capsule (100 mg) by mouth 2 times a day. FLUoxetine 60 mg tablet; Commonly known as: PROzac; Take 1 tablet (60 mg) by mouth once daily. hydrOXYzine HCL 25 mg tablet; Commonly known as: Atarax methocarbamol 500 mg tablet; Commonly known as: Robaxin; Take 1 tablet (500 mg) by mouth 3 times a day for 7 days. naloxone 4 mg/0.1 mL nasal spray; Commonly known as: Narcan; Administer 1 spray (4 mg) into affected nostril(s) if needed for opioid reversal. May repeat every 2-3 minutes if needed, alternating nostrils, until medical assistance becomes available. omeprazole [address] capsule; Commonly known as: PriLOSEC oxyCODONE 10 mg immediate release tablet; Commonly known as: Roxicodone; Take 1 tablet (10 mg) by mouth every 4 hours if needed for severe pain (7 - 10). tiZANidine 2 mg capsule; Commonly known as: Zanaflex STOP taking these medications lidocaine 5 % patch; Commonly known as: Lidoderm naproxen 500 mg tablet; Commonly known as: Naprosyn Test Results Pending At Discharge Pending Labs No current pending labs. Hospital Course Karina Tracy is a 48 y.o. female past medical history of anxiety, chronic low back pain Temporarily had a pain pump which worked well, however this was removed on 10/14/23 with concern for infection , opioid dependence, hepatitis C s/p antiviral therapy, cirrhosis, recently discharged 2 days ago for lumbar radiculopathy, she did not have a MRI lumbar spine with and without contrast on 12/13/2039 show Moderate canal stenosis at L4-5 secondary to disc bulge with crowding of the cauda equina nerve roots, slightly progressed from previous MRI 12/18/2023. Left paracentral disc protrusion at this level likely contacts the traversing left L5 nerve root. No abnormal enhancement. She does follow with neurosurgery outpatient. Patient presents with worsening lumbar radiculopathy. Patient reports worsening ambulation and now right leg numbness. Patient states that she previously had left lower extremity numbness now it is bilateral. Due to patient's symptoms she is now having trouble caring for self at home. Placement into facility was brought up last admission however patient wanted to attempt to be in her own home, now she is more agreeable to placement given her worsening symptoms. Patient is without fever, chills, she does admit to hot flashes, no chest pain or shortness of breath no nausea, vomiting diarrhea. Patient was admitted again for further management of the same symptom as in previous admission, mainly complaint of left lower extremity weakness and pain, no clear sign of sciatica. She received Dilaudid IV and oxycodone p.o. for pain control, was seen and evaluated by PT OT, with recommendation for low intensity level continue care. Patient was hoping to be discharged to SNF, unfortunately her score was too high to meet criteria for SNF. She is now being discharged home with home health. Referral made to pain management, patientstated that she was supposed to see Dr. Chou, unfortunately appointment coincided with her last admission. Short-term prescription for oxycodone 5 mg every 6 hours as needed severe pain, along with short-term zolpidem 5 mg at bedtime prescribed for med to bed delivery. Patient stable for discharge home with home health, she is to follow-up with her PCP, and appointment with pain management. Greater than 30 minutes dedicated to this discharge that included educating patient and coordinating care. Pertinent Physical Exam At Time of Discharge Physical Exam Constitutional: Obese, pleasant, alert active, cooperative not in acute distress Eyes: PERRLA, clear sclera ENMT: Moist mucosal membranes, no exudate Head / Neck: Atraumatic, normocephalic, supple neck, JVP not visualized Lungs: Patent airways, CTABL Heart: RRR, S1S2, no murmurs appreciated, palpable pulses in all extremities GI: Soft, NT, ND, bowel sounds present in all quadrants MSK: Bilateral weakness in the lower extremities with limitation of ROM, no joint edema Extremities: Decreased strength and sensation in the left lower extremity, no peripheral edema : No Killian catheter inserted Breast: Deferred Neurological: AAO x 3 to person, place and date, facial muscles symmetrical, sensation intact, strength 4/4, no acute focal neurological deficits appreciated Psychological: Appropriate mood and behavior Outpatient Follow-Up Future Appointments Date Time Provider Department Center 01/14/2024 1:00 PM Judah Woodard MD [id number] [facility] 01/17/2024 9:20 AM Marlee Fitzpatrick MD [id number] [place] 06/29/2024 8:00 AM Chidi Joseph MD [id number] [place] Shelton Beck [facility] Work Phone: 1(894) 418-953510-16-2024 History of Present illness Narrative* Kindra Kowalski RN - 01/08/2024 11:10 AM EDT 01/08/24 1110 Discharge Planning Home or Post Acute Services In home services Type of Home Care Services Home PT;Home OT Expected Discharge Disposition Home H Met with patient at bedside to discuss discharge plans. Explained that patient is not eligible for SNF but I could set her up with [facility] for pt/ot. Patient is agreeable. Patient lives in [place] which limits the available [facility] agencies. Spoke with [facility] and they do not service that area[facility]. * Shelton Beck, DO - 01/07/2024 8:14 PM EDT Jerad Collins is a 48 y.o. female on day 0 of admission presenting with Chronic low back pain without sciatica, unspecified back pain laterality. Subjective Patient was seen and examined at bedside this morning, stated that since discharge she was not ableto attend to her ADLs due to excruciating pain in her right lower extremity Objective Last Recorded Vitals BP 132/67 (BP Location: Right arm, Patient Position: Lying) Pulse 78 Temp 36.1 C (96.9 F) (Temporal) Resp 18 Wt 113 kg (250 lb) SpO2 96% Intake/Output last 3 Shifts: No intake or output data in the 24 hours ending 01/07/242013 Admission Weight Weight: 113 kg (250 lb) (01/06/24 1714) Daily Weight 01/06/24 : 113 kg (250 lb) Image Results XR lumbar spine 4+ views w flexion extension Narrative: Interpreted By: Danielle Orozco, STUDY: XR LUMBAR SPINE 4+ VIEWS WITH FLEXION EXTENSION; 01/02/2024 8:59 am INDICATION: Signs/Symptoms:L4-L5 lumbar stenosis with concern for spondylolisthesis. COMPARISON: None. ACCESSION NUMBER(S): [id number] ORDERING CLINICIAN: ANGELA GONZALEZ FINDINGS: Multiple views of the lumbar spine are obtained. Alignment is intact. The vertebral body heights are preserved. Disc space loss at L4/L5 with endplate sclerosis and osteophytes . No acute fracture-dislocation. Impression: Discogenic degenerative changes as described. Signed by: Danielle Orozco 01/02/2024 9:15 AM Dictation workstation: [id number] Physical Exam Constitutional: Obese, pleasant, alert active, cooperative not in acute distress Eyes: PERRLA, clear sclera ENMT: Moist mucosal membranes, no exudate Head / Neck: Atraumatic, normocephalic, supple neck, JVP not visualized Lungs: Patent airways, CTABL Heart: RRR, S1S2, no murmurs appreciated, palpable pulses in all extremities GI: Soft, NT, ND, bowel sounds present in all quadrants MSK: Bilateral weakness in the lower extremities with limitation of ROM, no joint edema Extremities: Decreased strength and sensation in the left lower extremity, no peripheral edema : No Killian catheter inserted Breast: Deferred Neurological: AAO x 3 to person, place and date, facial muscles symmetrical, sensation intact, strength 4/4, no acute focal neurological deficits appreciated Psychological: Appropriate mood and behavior Relevant Results Scheduled medications docusate sodium, 100 mg, oral, BID enoxaparin, 40 mg, subcutaneous, q12h BLAISE FLUoxetine, 60 mg, oral, Daily lidocaine, 1 patch, transdermal, Daily pantoprazole, 40 mg, oral, Daily before breakfast Continuous medications PRN medications PRN medications: HYDROmorphone, methocarbamol, naloxone, ondansetron, oxyCODONE, zolpidem Assessment/Plan 48 y.o. female past medical history of anxiety, chronic low back pain Temporarily had a pain pump which worked well, however this was removed on 10/14/23 with concern for infection , opioid dependence, hepatitis C s/p antiviral therapy, cirrhosis, recently discharged 2 days ago for lumbar radiculopathy, she did not have a MRI lumbar spine with and without contrast on 10 12/13/2039 show Moderate canal stenosis at L4-5 secondary to disc bulge with crowding of the cauda equina nerve roots, slightly progressed from previous MRI 12/18/2023. Left paracentral disc protrusion at this level likely contacts the traversing left L5 nerve root. No abnormal enhancement. She does follow with neurosurgery outpatient. Patient presents with worsening lumbar radiculopathy. Persistent chronic low back pain -Recently discharged home with home health and PT OT -Complain of limitation in ADLs - MRI showed mod canal stenosis L4-L5 with crowding of the cauda equina nerve roots. - Dr Adams aware of MRI findings, seen and evaluated by neurosurgery team this a.m. with recommendation for multimodal pain management, no acute inpatient neurological intervention indicated at this time, patient to follow-up in [address] Woodard for further evaluation of the spinal stenosis and candidacy for lumbar decompression. - pain management: Hydromorphone 0.5 mg every 4 hours as needed severe pain, oxycodone 10 mg every 4 hours as needed moderate pain. Methocarbamol 500 mg 3 times daily -PT OT: Recommend low intensity level of continue care with wheeled walker at discharge Elevated BP without diagnosis of hypertension -Hydralazine 10 mg IV push as needed systolic BP greater than 150 Nausea -PRN compazine Hx of bipolar/anxiety -Fluoxetine 60 mg daily Diet -Regular DVT prophylaxis -Lovenox 40 mg subcu daily Disposition: Presented with worsening chronic low back pain, with no need for neurosurgical intervention at this time, will benefit from SNF placement, unfortunately score high on PT evaluation, willdischarge home with home health and referral to pain management Shelton Beck DO * Kindra Kowalski RN - 01/07/2024 3:06 PM EDT 01/07/24 1505 Discharge Planning Living Arrangements Spouse/significant other;Parent Support Systems Family members Assistance Needed walker Type of Residence Private residence Number of Stairs to Enter Residence 3 Do you have animals or pets at home? Yes Home or Post Acute Services Community services;Post acute facilities (Rehab/SNF/etc) Expected Discharge Disposition Home Patient has been able to walk to the nurses desk outside of her room and has been seen walking around her room. Possible HHC vs outpatient PT/OT. Patient has been asking for pain meds. * Mayank Matthew PT - 01/07/2024 1:58 PM EDT Physical Therapy Physical Therapy Evaluation Patient Name: Jerad Collins Department: [place] [address] Room: [address] [place] [address] Today's Date: 01/07/2024 Time Calculation Start Time: 1138 Stop Time: 1148 Time Calculation (min): 10 min Assessment/Plan PT Assessment PT Assessment Results: Decreased strength, Decreased range of motion, Decreased endurance, Impairedbalance, Decreased mobility, Pain Rehab Prognosis: Fair Barriers to Discharge: Elevated back pain with activity. Pt pending stair training with steps to access home Evaluation/Treatment Tolerance: Patient limited by pain Medical Staff Made Aware: Yes Strengths: Ability to acquire knowledge, Access to adaptive/assistive products, Premorbid level of function, Support and attitude of living partners Barriers to Participation: (None identified) End of Session Communication: Bedside nurse Assessment Comment: Pt presents today with decreased LE strength, endurance, activity tolerance, and fair balance. Pt would benefit from continued PT to progress gait training, review spinal precautions to increase comfort during mobility, and attempt stair training as medically appropriate. At D/C, pt would benefit from low intensity PT. End of Session Patient Position: Bed, 3 rail up, Alarm off, not on at start of session (RN notifiedand aware of pt positioning and bed alarm being off at the end of the session.) IP OR SWING BED PT PLAN Inpatient or Swing Bed: Inpatient PT Plan Treatment/Interventions: Bed mobility, Transfer training, Gait training, Stair training, Balance training, Strengthening, Endurance training, Range of motion, Therapeutic exercise, Therapeutic activity, Home exercise program, Positioning, Postural re-education PT Plan: Ongoing PT PT Frequency: 3 times per week PT Discharge Recommendations: Low intensity level of continued care Equipment Recommended upon Discharge: (Pt owns a FWW) PT Recommended Transfer Status: Stand by assist, Assistive device PT - OK to Discharge: Yes (Per PT POC) Subjective General Visit Information: General Reason for Referral: 48 y/o F recently admitted for lumbar radiculopathy and currently presenting for worsening of symptoms. Referred By: Oanh Gallo (HIM SPECIALIST-LEAD PROGRAMMER) Past Medical History Relevant to Rehab: Past Medical History: Diagnosis Date Anxiety Arthritis Bipolar disorder Chronic pain disorder Depression HCV (hepatitis C virus) 2014 treated and resolved Herniated lumbar intervertebral disc Liver disease stage 3 - stable Neuropathic pain Plan: Thoracic Laminectomy for Spinal Cord Stimulator Leads; Generator Implant 11/21/23 Obesity Vision loss Family/Caregiver Present: No Prior to Session Communication: Bedside nurse Patient Position Received: Bed, 3 rail up, Alarm off, not on at start of session Preferred Learning Style: auditory, verbal General Comment: Pt in bed upon PT arrival. Cleared to participate with RN, and agreeable to PT evaluation. Home Living: Home Living Type of Home: House Lives With: Significant other Home Adaptive Equipment: Walker rolling or standard (FWW) Home Layout: One level Home Access: Stairs to enter with rails Entrance Stairs-Rails: Both Entrance Stairs-Number of Steps: 3 Bathroom Shower/Tub: Walk-in shower Bathroom Toilet: Handicapped height Bathroom Equipment: Grab bars around toilet Prior Level of Function: Prior Function Per Pt/Caregiver Report Level of Jess[place]: Independent with ADLs and functional transfers, Independent with homemaking with ambulation Receives Help From: (Significant other) ADL Assistance: Independent Homemaking Assistance: Independent Ambulatory Assistance: (Pt reports recent FWW usage since last admission. 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 Pt denies recent falls Precautions: Precautions Hearing/Visual Limitations: Pt wears glasses Medical Precautions: Spinal precautions (For comfort) Objective Pain: Pain Assessment Pain Assessment: 0-10 0-10 (Numeric) Pain Score: 8 Pain Type: Chronic pain Pain Location: Back Pain Orientation: Lower Pain Interventions: Ambulation/increased activity Response to Interventions: Unchanged Cognition: Cognition Orientation Level: Oriented X4 Insight: Within function limits General Assessments: Activity Tolerance Endurance: Tolerates 10 - 20 min exercise with multiple rests Sensation Light Touch: Not tested Coordination Movements are Fluid and Coordinated: Yes Postural Control Head Control: Forward head posture in standing with FWW support Posture Comment: Elevated shoulders with increased weight bearing/reliance on FWW support Static Sitting Balance Static Sitting-Balance Support: Bilateral upper extremity supported, Feet supported Static Sitting-Level of Assistance: Close supervision Static Sitting-Comment/Number of Minutes: At EOB Dynamic Sitting Balance Dynamic Sitting-Balance Support: Bilateral upper extremity supported, Feet supported Dynamic Sitting-Level of Assistance: Close supervision Static Standing Balance Static Standing-Balance Support: Bilateral upper extremity supported Static Standing-Level of Assistance: Close supervision Static Standing-Comment/Number of Minutes: With FWW support Dynamic Standing Balance Dynamic Standing-Balance Support: Bilateral upper extremity supported Dynamic Standing-Level of Assistance: Close supervision Dynamic Standing-Balance: Turning Dynamic Standing-Comments: With FWW support Functional Assessments: Bed Mobility Bed Mobility: Yes Bed Mobility 1 Bed Mobility 1: Supine to sitting Level of Assistance 1: Close supervision Bed Mobility Comments 1: Pt between supine and sidelying upon arrival. Pt uses bed rail to assist BLE off the EOB and pulls trunk into sitting. Pt denies dizziness in sitting. Bed Mobility 2 Bed Mobility 2: Sitting to supine Level of Assistance 2: Close supervision Bed Mobility Comments 2: Pt lifts BLE into bed and pivots on buttocks to transition into supine. Pteducated on performing log roll technique to minimize trunk rotation for pain management. Transfers Transfer: Yes Transfer 1 Transfer From 1: Bed to Transfer to 1: Stand Technique 1: Sit to stand Transfer Device 1: Walker Transfer Level of Assistance 1: Close supervision Trials/Comments 1: Pt demonstrates BUE push from the bed to stand with slightly increased time. Pt denies dizziness in standing, but reports increased back pain. Transfers 2 Transfer From 2: Stand to Transfer to 2: Bed Technique 2: Stand to sit Transfer Device 2: Walker Transfer Level of Assistance 2: Close supervision Trials/Comments 2: Pt demonstrates good BLE positioning against the bed before attempting to sit. Pt sits without UE reach for the bed. Pt educated on BUE reach for sitting surface to assist in controlled descent into sitting. Pt verbalizes understanding of education provided. Ambulation/Gait Training Ambulation/Gait Training Performed: Yes Ambulation/Gait Training 1 Surface 1: Level tile Device 1: Rolling walker Assistance 1: Close supervision, Minimal verbal cues Quality of Gait 1: Forward flexed posture, Decreased step length Comments/Distance (ft) 1: 15 ft x 2. Pt demonstrates decreased nika and step length with gaze directed at the ground. Pt able to demonstrate forward gaze with VC, but reports increased pain with attempted increased step length. Pt flexed at trunk with increased reliance on FWW. No overt LOB observed. Stairs Stairs: No Extremity/Trunk Assessments: RLE RLE : Exceptions to WFL Strength RLE RLE Overall Strength: Deficits, Due to pain LLE LLE : Exceptions to WFL Strength LLE LLE Overall Strength: Deficits, Due to pain Outcome Measures: [facility] Basic Mobility Turning from your back to your side while in a flat bed without using bedrails: None Moving from lying on your back to sitting on the side of a flat bed without using bedrails: A little Moving to and from bed to chair (including a wheelchair): A little Standing up from a chair using your arms (e.g. wheelchair or bedside chair): A little To walk in hospital room: A little Climbing 3-5 steps with railing: A lot Basic Mobility - Total Score: 18 Encounter Problems Encounter Problems (Active) Balance Goal 1 (Progressing) Start: 01/07/24 Expected End: 01/21/24 Pt performs all sitting balance IND and standing balance mod IND using FWW Mobility STG - Patient will navigate 3 steps with B HR support mod IND (Not Progressing) Start: 01/07/24 Expected End: 01/21/24 STG - Patient will ambulate (Progressing) Start: 01/07/24 Expected End: 01/21/24 110 ft with </= 2 rest breaks, close supervision, and with FWW support PT Transfers STG - Patient to transfer to and from sit to supine (Progressing) Start: 01/07/24 Expected End: 01/21/24 Mod IND using the log roll technique STG - Patient will transfer sit to and from stand (Progressing) Start: 01/07/24 Expected End: 01/21/24 Mod IND using FWW Education Documentation Precautions, taught by Mayank Matthew PT at 01/07/2024 1:57 PM. Learner: Patient Readiness: Acceptance Method: Explanation, Demonstration Response: Needs Reinforcement, Verbalizes Understanding Body Mechanics, taught by Mayank Matthew PT at 01/07/2024 1:57 PM. Learner: Patient Readiness: Acceptance Method: Explanation, Demonstration Response: Needs Reinforcement, Verbalizes Understanding Mobility Training, taught by Mayank Matthew PT at 01/07/2024 1:57 PM. Learner: Patient Readiness: Acceptance Method: Explanation, Demonstration Response: Needs Reinforcement, Verbalizes Understanding Education Comments No comments found. * April Hall, OT - 01/07/2024 10:39 AM EDT Occupational Therapy Evaluation Patient Name: Jerad Collins Department: [place] [id number] Room: [address] [place] [address] Today's Date: 01/07/2024 Time Calculation Start Time: 1039 Stop Time: 1054 Time Calculation (min): 15 min Assessment: OT Assessment: Impaired ADLs Prognosis: Excellent Barriers to Discharge: None Evaluation/Treatment Tolerance: Patient limited by pain Medical Staff Made Aware: Yes End of Session Communication: Bedside nurse, Cotton Picker Operator End of Session Patient Position: Bed, 3 rail up, Alarm off, not on at start of session OT Assessment Results: Decreased endurance, Decreased ADL status, Decreased functional mobility Prognosis: Excellent Barriers to Discharge: None Evaluation/Treatment Tolerance: Patient limited by pain Medical Staff Made Aware: Yes Strengths: Attitude of self, Ability to acquire knowledge, Housing layout, Premorbid level of function Plan: No Skilled OT: No acute OT goals identified OT Frequency: OT eval only OT Discharge Recommendations: Other (Comment) (Pt. would benefit from OP) OT Recommended Transfer Status: Stand by assist Subjective Current Problem: No diagnosis found. General: General Reason for Referral: 48 y.o. F admitted for chronic low back pain Referred By: Jose Gallo APRN-LEAD PROGRAMMER Past Medical History Relevant to Rehab: Past Medical History: Diagnosis Date Anxiety Arthritis Bipolar disorder Chronic pain disorder Depression HCV (hepatitis C virus) 2013 treated and resolved Herniated lumbar intervertebral disc Liver disease stage 3 - stable Neuropathic pain Plan: Thoracic Laminectomy for Spinal Cord Stimulator Leads; Generator Implant 11/21/23 Obesity Vision loss Past Surgical History: Procedure Laterality Date ADENOIDECTOMY BUNIONECTOMY Bilateral CHOLECYSTECTOMY COLONOSCOPY DENTAL SURGERY Bilateral all teeth removed, dentures HYSTERECTOMY MYRINGOTOMY W/ TUBES Bilateral SPINAL CORD STIMULATOR IMPLANT 09/23/2023 Percutaneous Thoracic Spinal Cord Stimulator Leads and Generator Placement SPINAL CORD STIMULATOR REMOVAL 10/14/2023 SPINAL CORD STIMULATOR TRIAL W/ LAMINOTOMY 08/21/2023 Percutaneous Thoracic Spinal Cord Stimulator Trial TONSILLECTOMY Family/Caregiver Present: No Prior to Session Communication: Cotton Picker Operator Patient Position Received: Bed, 3 rail up, Alarm off, not on at start of session Preferred Learning Style: kinesthetic, verbal General Comment: Pt. cleared for OT session. Pt. received side-lying in bed, ice packs in place, B SCDs, requesting to have them removed d/t feeling hot Precautions: Hearing/Visual Limitations: WFL Medical Precautions: Spinal precautions (for comfort) Pain: Pain Assessment Pain Assessment: 0-10 0-10 (Numeric) Pain Score: 8 Pain Type: Chronic pain Pain Location: Back Pain Orientation: Lower Objective Cognition: Overall Cognitive Status: Within Functional Limits Orientation Level: Oriented X4 Insight: Within function limits Impulsive: Within functional limits Home Living: Type of Home: House Lives With: Significant other (fiances father) Home Layout: One level Home Access: Stairs to enter with rails Entrance Stairs-Rails: Both Entrance Stairs-Number of Steps: 3 Bathroom Shower/Tub: Walk-in shower Bathroom Toilet: Handicapped height Prior Function: Level of [place]: Independent with ADLs and functional transfers, Independent with homemaking with ambulation Receives Help From: Family ADL Assistance: Independent Homemaking Assistance: Independent Ambulatory Assistance: (approx 1 week ago using FWW) Vocational: Other (Comment) (On medical leave, 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 ADL: LE Dressing Assistance: Stand by LE Dressing Deficit: Setup, Don/doff R shoe, Don/doff L shoe Activity Tolerance: Endurance: Tolerates less than 10 min exercise, no significant change in vital signs Early Mobility/Exercise Safety Screen: Proceed with mobilization - No exclusion criteria met Bed Mobility/Transfers: Bed Mobility Bed Mobility: Yes Bed Mobility 1 Bed Mobility 1: Supine to sitting Level of Assistance 1: Close supervision Bed Mobility Comments 1: Pt. completed side-lying to sit with HOB slightly elevated, pt. completed log roll technique demsontrated. Bed Mobility 2 Bed Mobility 2: Sitting to supine Level of Assistance 2: Close supervision Bed Mobility Comments 2: Pt. completed sit/supine with close sup for saafety. Transfers Transfer: Yes Transfer 1 Technique 1: Sit to stand, Stand to sit Transfer Device 1: Walker Transfer Level of Assistance 1: Close supervision Trials/Comments 1: Pt. completed sit/stand transfer with with close sup for safety with FWW. Vision:Vision - Basic Assessment Current Vision: Wears glasses all the time Sensation: Sensation Comment: Pt. verbalized increased B feet numbness and tingeling. Coordination: Movements are Fluid and Coordinated: Yes Hand Function: Gross Grasp: Functional Coordination: Functional Extremities: RUE RUE : Within Functional Limits and LUE LUE: Within Functional Limits Outcome Measures:[facility] Daily Activity Putting on and taking off regular lower body clothing: A little Bathing (including washing, rinsing, drying): A little Putting on and taking off regular upper body clothing: A little Toileting, which includes using toilet, bedpan or urinal: None Taking care of personal grooming such as brushing teeth: None Eating Meals: None Daily Activity - Total Score: 21 Education Documentation ADL Training, taught by April Hall OT at 01/07/2024 12:01 PM. Learner: Patient Readiness: Acceptance Method: Explanation, Demonstration Response: Verbalizes Understanding, Demonstrated Understanding Education Comments No comments found. OP EDUCATION: Education Individual(s) Educated: Patient Education Provided: Fall precautons, Risk and benefits of OT discussed with patient or other, POC discussed and agreed upon Diagnosis and Precautions: Impaired ADLs/IADLs Risk and Benefits Discussed with Patient/Caregiver/Other: yes Patient/Caregiver Demonstrated Understanding: yes Plan of Care Discussed and Agreed Upon: yes Patient Response to Education: Patient/Caregiver Verbalized Understanding of Information, Patient/Caregiver Performed Return Demonstration of Exercises/Activities, Patient/Caregiver Asked AppropriateQuestions [facility] Work Phone: 1(666) 939-961710-16-2024 Plan of care note* Care Plan - Berenice Collazo RN - 01/08/2024 9:55 AM EDT The patient's goals for the shift include maintain safety The clinical goals for the shift include maintain safety Over the shift, the patient did not make progress toward the following goals. Barriers to progression include weakness. Recommendations to address these barriers include safety precautions. [facility]10-16-2024 Miscellaneous Notes* Care Plan - Berenice Collazo RN - 01/08/2024 9:55 AM EDT The patient's goals for the shift include maintain safety The clinical goals for the shift include maintain safety Over the shift, the patient did not make progress toward the following goals. Barriers to progression include weakness. Recommendations to address these barriers include safety precautions. * Care Plan - Daysi Santos RN - 01/07/2024 10:28 PM EDT Problem: Pain - Adult Goal: Verbalizes/displays adequate comfort level or baseline comfort level Outcome: Progressing Problem: Safety - Adult Goal: Free from fall injury Outcome: Progressing Problem: Discharge Planning Goal: Discharge to home or other facility with appropriate resources Outcome: Progressing Problem: Chronic Conditions and Co-morbidities Goal: Patient's chronic conditions and co-morbidity symptoms are monitored and maintained or improved Outcome: Progressing * Care Plan - Марина Fried RN - 01/07/2024 10:24 AM EDT The patient's goals for the shift include safety The clinical goals for the shift include pain management Over the shift, the patient did not make progress toward the following goals. Barriers to progression include pain. Recommendations to address these barriers include increase comfort. Problem: Safety - Adult Goal: Free from fall injury Outcome: Progressing Problem: Pain Goal: Takes deep breaths with improved pain control throughout the shift Outcome: Progressing Problem: Fall/Injury Goal: Be free from injury by end of the shift Outcome: Progressing Problem: Fall/Injury Goal: Verbalize understanding of personal risk factors for fall in the hospital Outcome: Progressing * Care Plan - Alondra Gonzalez RN - 01/07/2024 4:51 AM EDT The patient's goals for the shift include The clinical goals for the shift include to decrease back pain Problem: Pain - Adult Goal: Verbalizes/displays adequate comfort level or baseline comfort level Outcome: Progressing Problem: Safety - Adult Goal: Free from fall injury Outcome: Progressing Problem: Discharge Planning Goal: Discharge to home or other facility with appropriate resources Outcome: Progressing Problem: Chronic Conditions and Co-morbidities Goal: Patient's chronic conditions and co-morbidity symptoms are monitored and maintained or improved Outcome: Progressing Problem: Pain Goal: Takes deep breaths with improved pain control throughout the shift Outcome: Progressing Goal: Turns in bed with improved pain control throughout the shift Outcome: Progressing Goal: Walks with improved pain control throughout the shift Outcome: Progressing Goal: Performs ADL's with improved pain control throughout shift Outcome: Progressing Goal: Free from opioid side effects throughout the shift Outcome: Progressing Goal: Free from acute confusion related to pain meds throughout the shift Outcome: Progressing documented in [facility] Work Phone: 1(192) 478-839410-15-2024 Nurse Note* Daysi Santos RN - 01/07/2024 11:48 PM EDT Daysi gave report to Mary Ann; whom assumed care of patient [facility] Work Phone: 1(209) 625-971810-15-2024 Nurse Note* Daysi Santos RN - 01/07/2024 11:48 PM EDT Daysi gave report to Mary Ann; whom assumed care of patient [facility] Work Phone: 1([phone]) 235-706210-15-2024 Plan of care note* Care Plan - Daysi Santso RN - 01/07/2024 10:28 PM EDT Problem: Pain - Adult Goal: Verbalizes/displays adequate comfort level or baseline comfort level Outcome: Progressing Problem: Safety - Adult Goal: Free from fall injury Outcome: Progressing Problem: Discharge Planning Goal: Discharge to home or other facility with appropriate resources Outcome: Progressing Problem: Chronic Conditions and Co-morbidities Goal: Patient's chronic conditions and co-morbidity symptoms are monitored and maintained or improved Outcome: Progressing [facility] Work Phone: [phone]) 637-617710-15-2024 Plan of care note* Care Plan - Марина Fried RN - 01/07/2024 10:24 AM EDT The patient's goals for the shift include safety The clinical goals for the shift include pain management Over the shift, the patient did not make progress toward the following goals. Barriers to progression include pain. Recommendations to address these barriers include increase comfort. Problem: Safety - Adult Goal: Free from fall injury Outcome: Progressing Problem: Pain Goal: Takes deep breaths with improved pain control throughout the shift Outcome: Progressing Problem: Fall/Injury Goal: Be free from injury by end of the shift Outcome: Progressing Problem: Fall/Injury Goal: Verbalize understanding of personal risk factors for fall in the hospital Outcome: Progressing [facility]10-15-2024 Plan of care note* Care Plan - Alondra Gonzalez RN - 01/07/2024 4:51 AM EDT The patient's goals for the shift include The clinical goals for the shift include to decrease back pain Problem: Pain - Adult Goal: Verbalizes/displays adequate comfort level or baseline comfort level Outcome: Progressing Problem: Safety - Adult Goal: Free from fall injury Outcome: Progressing Problem: Discharge Planning Goal: Discharge to home or other facility with appropriate resources Outcome: Progressing Problem: Chronic Conditions and Co-morbidities Goal: Patient's chronic conditions and co-morbidity symptoms are monitored and maintained or improved Outcome: Progressing Problem: Pain Goal: Takes deep breaths with improved pain control throughout the shift Outcome: Progressing Goal: Turns in bed with improved pain control throughout the shift Outcome: Progressing Goal: Walks with improved pain control throughout the shift Outcome: Progressing Goal: Performs ADL's with improved pain control throughout shift Outcome: Progressing Goal: Free from opioid side effects throughout the shift Outcome: Progressing Goal: Free from acute confusion related to pain meds throughout the shift Outcome: Progressing [facility]10-14-2024 History and physical note* Jose Gallo APRN-MARINA - 01/06/2024 11:28 PM EDT History Of Present Illness Karina Tracy is a 48 y.o. female past medical history of anxiety, chronic low back pain Temporarily had a pain pump which worked well, however this was removed on 10/14/23 with concern for infection , opioid dependence, hepatitis C s/p antiviral therapy, cirrhosis, recently discharged 2 days ago for lumbar radiculopathy, she did not have a MRI lumbar spine with and without contrast on 10 12/13/2039 show Moderate canal stenosis at L4-5 secondary to disc bulge with crowding of the cauda equina nerve roots, slightly progressed from previous MRI 12/18/2023. Left paracentral disc protrusion at this level likely contacts the traversing left L5 nerve root. No abnormal enhancement. She does follow with neurosurgery outpatient. Patient presents with worsening lumbar radiculopathy. Patient reports worsening ambulation and now right leg numbness. Patient states that she previously had left lower extremity numbness now it is bilateral. Due to patient's symptoms she is now having trouble caring for self at home. Placement into facility was brought up last admission however patient wanted to attempt to be in her own home, now she is more agreeable to placement given her worsening symptoms. Patient is without fever, chills, she does admit to hot flashes, no chest pain or shortness of breath no nausea, vomiting diarrhea. Past Medical History She has a past medical history of Anxiety, Arthritis, Bipolar disorder, Chronic pain disorder, Depression, HCV (hepatitis C virus) (2013), Herniated lumbar intervertebral disc, Liver disease, Neuropathic pain, Obesity, and Vision loss. Surgical History She has a past surgical history that includes Cholecystectomy; Hysterectomy; Tonsillectomy; Myringotomy w/ tubes (Bilateral); Dental surgery (Bilateral); Bunionectomy (Bilateral); Colonoscopy; Adenoidectomy; Spinal cord stimulator removal (10/14/2023); Spinal cord stimulator implant (09/23/2023); and Spinal cord stimulator trial w/ laminotomy (08/21/2023). Social History She reports that she has been smoking cigarettes. She started smoking about 32 years ago. She has a16.4 pack-year smoking history. She has never used smokeless tobacco. She reports that she does notcurrently use drugs. She reports that she does not drink alcohol. Family History Family History Problem Relation Name Age of Onset Lung disease Mother COPD Mother Lung disease Father Lung cancer Father Heart disease Father Allergies Penicillins, Gabapentin, Tylenol [acetaminophen], and Nabumetone Review of Systems Constitutional: Positive for activity change. HENT: Negative. Respiratory: Negative. Cardiovascular: Negative. Gastrointestinal: Negative. Genitourinary: Negative. Musculoskeletal: Positive for back pain and gait problem. Skin: Negative. Psychiatric/Behavioral: Negative. Physical Exam HENT: Head: Normocephalic. Mouth/Throat: Mouth: Mucous membranes are moist. Cardiovascular: Rate and Rhythm: Normal rate. Pulses: Normal pulses. Pulmonary: Effort: Pulmonary effort is normal. Breath sounds: Normal breath sounds. Abdominal: General: Bowel sounds are normal. Palpations: Abdomen is soft. Musculoskeletal: General: Normal range of motion. Cervical back: Neck supple. Comments: Lumbar radiculopathy with numbness in bilateral extremities Skin: General: Skin is warm. Neurological: Mental Status: She is alert and oriented to person, place, and time. Psychiatric: Mood and Affect: Mood normal. Behavior: Behavior normal. Last Recorded Vitals BP 160/85 Pulse 82 Temp 36.4 C (97.5 F) (Temporal) Resp 17 Wt 113 kg (250 lb) SpO2 95% Relevant Results Results for orders placed or performed during the hospital encounter of 01/06/24 (from the past 24 hour(s)) CBC and Auto Differential Result Value Ref Range WBC 12.3 (H) 4.4 - 11.3 x10*3/uL nRBC 0.0 0.0 - 0.0 /100 WBCs RBC 4.45 4.00 - 5.20 x10*6/uL Hemoglobin 13.6 12.0 - 16.0 g/dL Hematocrit 41.3 36.0 - 46.0 % MCV 93 80 - 100 fL MCH 30.6 26.0 - 34.0 pg MCHC 32.9 32.0 - 36.0 g/dL RDW 13.2 11.5 - 14.5 % Platelets 339 150 - 450 x10*3/uL Neutrophils % 64.4 40.0 - 80.0 % Immature Granulocytes %, Automated 0.6 0.0 - 0.9 % Lymphocytes % 25.1 13.0 - 44.0 % Monocytes % 7.1 2.0 - 10.0 % Eosinophils % 2.6 0.0 - 6.0 % Basophils % 0.2 0.0 - 2.0 % Neutrophils Absolute 7.93 (H) 1.20 - 7.70 x10*3/uL Immature Granulocytes Absolute, Automated 0.08 0.00 - 0.70 x10*3/uL Lymphocytes Absolute 3.09 1.20 - 4.80 x10*3/uL Monocytes Absolute 0.88 0.10 - 1.00 x10*3/uL Eosinophils Absolute 0.32 0.00 - 0.70 x10*3/uL Basophils Absolute 0.02 0.00 - 0.10 x10*3/uL Comprehensive metabolic panel Result Value Ref Range Glucose 124 (H) 74 - 99 mg/dL Sodium 135 (L) 136 - 145 mmol/L Potassium 3.8 3.5 - 5.3 mmol/L Chloride 98 98 - 107 mmol/L Bicarbonate 31 21 - 32 mmol/L Anion Gap 10 10 - 20 mmol/L Urea Nitrogen 17 6 - 23 mg/dL Creatinine 0.78 0.50 - 1.05 mg/dL eGFR >90 >60 mL/min/1.73m*2 Calcium 7.9 (L) 8.6 - 10.3 mg/dL Albumin 3.7 3.4 - 5.0 g/dL Alkaline Phosphatase 94 33 - 110 U/L Total Protein 6.6 6.4 - 8.2 g/dL AST 17 9 - 39 U/L Bilirubin, Total 0.2 0.0 - 1.2 mg/dL ALT 14 7 - 45 U/L Assessment/Plan Assessment & Plan Chronic low back pain without sciatica, unspecified back pain laterality Plan: Pain control PT OT Anxiety/depression-continue Prozac DVT prophylax-Lovenox ROX Bonds [facility] Work Phone: 1([phone]) 310-166010-14-2024 History and physical note* ROX Bonds - 01/06/2024 11:28 PM EDT History Of Present Illness Karina Tracy is a 48 y.o. female past medical history of anxiety, chronic low back pain Temporarily had a pain pump which worked well, however this was removed on 10/14/23 with concern for infection , opioid dependence, hepatitis C s/p antiviral therapy, cirrhosis, recently discharged 2 days ago for lumbar radiculopathy, she did not have a MRI lumbar spine with and without contrast on 10 12/13/2039 show Moderate canal stenosis at L4-5 secondary to disc bulge with crowding of the cauda equina nerve roots, slightly progressed from previous MRI 12/18/2023. Left paracentral disc protrusion at this level likely contacts the traversing left L5 nerve root. No abnormal enhancement. She does follow with neurosurgery outpatient. Patient presents with worsening lumbar radiculopathy. Patient reports worsening ambulation and now right leg numbness. Patient states that she previously had left lower extremity numbness now it is bilateral. Due to patient's symptoms she is now having trouble caring for self at home. Placement into facility was brought up last admission however patient wanted to attempt to be in her own home, now she is more agreeable to placement given her worsening symptoms. Patient is without fever, chills, she does admit to hot flashes, no chest pain or shortness of breath no nausea, vomiting diarrhea. Past Medical History She has a past medical history of Anxiety, Arthritis, Bipolar disorder, Chronic pain disorder, Depression, HCV (hepatitis C virus) (2013), Herniated lumbar intervertebral disc, Liver disease, Neuropathic pain, Obesity, and Vision loss. Surgical History She has a past surgical history that includes Cholecystectomy; Hysterectomy; Tonsillectomy; Myringotomy w/ tubes (Bilateral); Dental surgery (Bilateral); Bunionectomy (Bilateral); Colonoscopy; Adenoidectomy; Spinal cord stimulator removal (10/14/2023); Spinal cord stimulator implant (09/23/2023); and Spinal cord stimulator trial w/ laminotomy (08/21/2023). Social History She reports that she has been smoking cigarettes. She started smoking about 32 years ago. She has a16.4 pack-year smoking history. She has never used smokeless tobacco. She reports that she does notcurrently use drugs. She reports that she does not drink alcohol. Family History Family History Problem Relation Name Age of Onset Lung disease Mother COPD Mother Lung disease Father Lung cancer Father Heart disease Father Allergies Penicillins, Gabapentin, Tylenol [acetaminophen], and Nabumetone Review of Systems Constitutional: Positive for activity change. HENT: Negative. Respiratory: Negative. Cardiovascular: Negative. Gastrointestinal: Negative. Genitourinary: Negative. Musculoskeletal: Positive for back pain and gait problem. Skin: Negative. Psychiatric/Behavioral: Negative. Physical Exam HENT: Head: Normocephalic. Mouth/Throat: Mouth: Mucous membranes are moist. Cardiovascular: Rate and Rhythm: Normal rate. Pulses: Normal pulses. Pulmonary: Effort: Pulmonary effort is normal. Breath sounds: Normal breath sounds. Abdominal: General: Bowel sounds are normal. Palpations: Abdomen is soft. Musculoskeletal: General: Normal range of motion. Cervical back: Neck supple. Comments: Lumbar radiculopathy with numbness in bilateral extremities Skin: General: Skin is warm. Neurological: Mental Status: She is alert and oriented to person, place, and time. Psychiatric: Mood and Affect: Mood normal. Behavior: Behavior normal. Last Recorded Vitals BP 160/85 Pulse 82 Temp 36.4 C (97.5 F) (Temporal) Resp 17 Wt 113 kg (250 lb) SpO2 95% Relevant Results Results for orders placed or performed during the hospital encounter of 01/06/24 (from the past 24 hour(s)) CBC and Auto Differential Result Value Ref Range WBC 12.3 (H) 4.4 - 11.3 x10*3/uL nRBC 0.0 0.0 - 0.0 /100 WBCs RBC 4.45 4.00 - 5.20 x10*6/uL Hemoglobin 13.6 12.0 - 16.0 g/dL Hematocrit 41.3 36.0 - 46.0 % MCV 93 80 - 100 fL MCH 30.6 26.0 - 34.0 pg MCHC 32.9 32.0 - 36.0 g/dL RDW 13.2 11.5 - 14.5 % Platelets 339 150 - 450 x10*3/uL Neutrophils % 64.4 40.0 - 80.0 % Immature Granulocytes %, Automated 0.6 0.0 - 0.9 % Lymphocytes % 25.1 13.0 - 44.0 % Monocytes % 7.1 2.0 - 10.0 % Eosinophils % 2.6 0.0 - 6.0 % Basophils % 0.2 0.0 - 2.0 % Neutrophils Absolute 7.93 (H) 1.20 - 7.70 x10*3/uL Immature Granulocytes Absolute, Automated 0.08 0.00 - 0.70 x10*3/uL Lymphocytes Absolute 3.09 1.20 - 4.80 x10*3/uL Monocytes Absolute 0.88 0.10 - 1.00 x10*3/uL Eosinophils Absolute 0.32 0.00 - 0.70 x10*3/uL Basophils Absolute 0.02 0.00 - 0.10 x10*3/uL Comprehensive metabolic panel Result Value Ref Range Glucose 124 (H) 74 - 99 mg/dL Sodium 135 (L) 136 - 145 mmol/L Potassium 3.8 3.5 - 5.3 mmol/L Chloride 98 98 - 107 mmol/L Bicarbonate 31 21 - 32 mmol/L Anion Gap 10 10 - 20 mmol/L Urea Nitrogen 17 6 - 23 mg/dL Creatinine 0.78 0.50 - 1.05 mg/dL eGFR >90 >60 mL/min/1.73m*2 Calcium 7.9 (L) 8.6 - 10.3 mg/dL Albumin 3.7 3.4 - 5.0 g/dL Alkaline Phosphatase 94 33 - 110 U/L Total Protein 6.6 6.4 - 8.2 g/dL AST 17 9 - 39 U/L Bilirubin, Total 0.2 0.0 - 1.2 mg/dL ALT 14 7 - 45 U/L Assessment/Plan Assessment & Plan Chronic low back pain without sciatica, unspecified back pain laterality Plan: Pain control PT OT Anxiety/depression-continue Prozac DVT prophylax-Lovenox ROX Bonds documented in this [facility] Work Phone: [phone]) 184-859710-14-2024 Emergency department Note* Allyson Navarrete RN - 01/06/2024 5:02 PM EDT Pt arrives to ED with bilateral leg numbness, pain and bilateral lower back pain. Pt reports havingL4-L5 L5-S1 has herniated bulging discs. Pt reports they think that they are slipped now d/t the MRI she had on Saturday. Pt reports pain has worsened and she now has total numbness vs she had some feeling in her legs. Pt was admitted to this hospital last week and was Dc'd. Pt reports they were going to try to get her to a rehab facility but she wanted to go home and she states now she has beenhaving a hard time at home trying to manage her pain. [facility] [phone]) 414-102410-14-2024 Emergency department Triage note* Allyson Navarrete RN - 01/06/2024 5:02 PM EDT Pt arrives to ED with bilateral leg numbness, pain and bilateral lower back pain. Pt reports havingL4-L5 L5-S1 has herniated bulging discs. Pt reports they think that they are slipped now d/t the MRI she had on Saturday. Pt reports pain has worsened and she now has total numbness vs she had some feeling in her legs. Pt was admitted to this hospital last week and was Dc'd. Pt reports they were going to try to get her to a rehab facility but she wanted to go home and she states now she has beenhaving a hard time at home trying to manage her pain. [facility] Work Phone: 1(113) 476-924010-14-2024 Hospital Discharge instructions Patient Education 01/06/2024 13:12:37 Lumbosacral Radiculopathy Lumbosacral Radiculopathy Lumbosacral radiculopathy is [...] pull them backward. 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 [...] a greater risk of getting burned. Take xiza-etu-xpltegc and prescription medicines only as told by [...] provider. Document Revised: 09/14/2021 Document Reviewed: 09/14/2021 [employer] Patient Education 2023 [employer] Acquisition. Follow Up Care 01/06/2024 11:36:43 With:Cheyanne Rosas Address: [facility] [address], [facility] [place] [id number] [phone] (1) When:01/09/2024 13:06:02 [facility] 10-14-2024 NoteED Patient Education Note Orthopedics Lumbosacral Radiculopathy Lumbosacral radiculopathy is a condition that involves the spinal nerves and nerve roots in the lowback and bottom of the spine. The condition develops when these nerves and nerve roots move out of place or become inflamed and cause symptoms. What are the causes? This condition may be caused by: ? Pressure from a disk that bulges out of place (herniated disk). A disk is a plate of soft cartilage that separates bones in the spine. ? Disk changes that occur with age (disk degeneration). ? A narrowing of the bones of the lower back (spinal stenosis). ? A tumor. ? An infection. ? An injury that places sudden pressure on the disks that cushion the bones of your lower spine. What increases the risk? You are more likely to develop this condition if: ? You are a male who is 30?50 years old. ? You are a female who is 50?60 years old. ? You use improper technique when lifting things. ? You are overweight or live a sedentary lifestyle. ? You smoke. ? Your work requires frequent lifting. ? You do repetitive activities that strain the spine. What are the signs or symptoms? Symptoms of this condition include: ? Pain that goes down from your back into your legs (sciatica), usually on one side of the body. This is the most common symptom. The pain may be worse when you sit, cough, or sneeze. ? Tingling and numbness in your legs. ? Muscle weakness in your legs. ? Loss of bladder control or bowel control. How is this diagnosed? This condition may be diagnosed based on: ? Your symptoms and medical history. ? A physical exam. If the pain lasts, you may have tests, such as: ? MRI. ? X-ray. ? CT scan. ? A type of CT scan used to examine the spinal canal after injecting a dye into your spine (myelogram). ? A test to measure how electrical impulses move through a nerve (nerve conduction study). ? A test to measure the electrical activity in muscles (electromyogram). How is this treated? In many cases, treatment is not needed for this condition. With rest, the condition usually gets better over time. If treatment is needed, it may include: ? Working with a physical therapist to improve strength and flexibility. ? Taking pain medicine. ? Applying heat or ice or both to the affected areas. ? Having chiropractic spinal manipulation. ? Using transcutaneous electrical nerve stimulation (TENS) therapy. ? Getting a steroid injection in the spine. ? Having surgery. This may be needed if other treatments do not help. Different types of surgery may be done depending on the cause of this condition. Follow these instructions at home: Activity ? Avoid bending and any other activities that make the problem worse. ? Maintain a proper position when standing or sitting. ? When standing, keep your upper back and neck straight with your shoulders pulled back. Avoid slouching. ? When sitting, keep your back straight and relax your shoulders. Do not round your shoulders or pull them backward. ? 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 ? Take brief periods of rest throughout the day. This will reduce your pain. It is usually better to rest by lying down or standing, not sitting. ? Mix in mild activity or stretching between long periods of rest. This will help to prevent stiffness and pain. ? Get regular exercise. Ask your health care provider what activities are safe for you. If you wereshown how to do any exercises or stretches, do them as told by your health care provider. ? You may have to avoid lifting. Ask your health care provider how much you can safely lift. ? Always use proper lifting technique, which includes: ? Bending your knees. ? Keeping the load close to your body. ? Avoiding twisting. Managing pain ? If directed, put ice on the affected area. To do this: ? Put ice in a plastic bag. ? Place a towel between your skin and the bag. ? Leave the ice on for 20 minutes, 2?3 times a day. ? Remove the ice if your skin turns bright red. This is very important. If you cannot feel pain, heat, or cold, you have a greater risk of damage to the area. ? If directed, apply heat to the affected area as often as told by your health care provider. Use the heat source that your health care provider recommends, such as a moist heat pack or a heating pad. ? Place a towel between your skin and the heat source. ? Leave the heat on for 20?30 minutes. ? Remove the heat if your skin turns bright red. This is especially important if you are unable to feel pain, heat, or cold. You have a greater risk of getting burned. ? Take jpsq-eqy-qnyhzvy and prescription medicines only as told by your health care provider. General instructions ? Sleep on a firm mattress in a comfortable position. Try lying on your side with your knees slightly bent. If you lie on your back, put a pillow under your knees. ? Ask yo (more content not included)...[facility]10-12-2024 History of Present illness Narrative* Seun Sher, OT - 01/04/2024 1:43 PM EDT Occupational Therapy Evaluation Patient Name: Jerad Collins Department: [facility] Room: 623/623-A Today's Date: 01/04/2024 Time Calculation Start Time: 1307 Stop Time: 1317 Time Calculation (min): 10 min Assessment IP OT Assessment OT Assessment: (OT Eval complete, patient with Back Pain. Patient with decreased ADLs, decreased transfers, decreased activity tolerance. Low Intensity therapy recommended to maximize functional independence.) Prognosis: Good Barriers to Discharge: None Evaluation/Treatment Tolerance: Patient tolerated treatment well Medical Staff Made Aware: Yes End of Session Communication: Bedside nurse End of Session Patient Position: Bed, 3 rail up, Alarm on Plan: Treatment Interventions: ADL retraining, Functional transfer training, Endurance training, Patient/family training, Neuromuscular reeducation OT Frequency: 3 times per week OT Discharge Recommendations: Low intensity level of continued care Equipment Recommended upon Discharge: Wheeled walker OT Recommended Transfer Status: Stand by assist OT - OK to Discharge: Yes Subjective Current Problem: 1. Left leg weakness oxyCODONE (Roxicodone) 10 mg immediate release tablet docusate sodium (Colace) 100 mg capsule Referral to Primary Care - Family Practice Referral to Home Health Walker rolling 2. Chronic midline low back pain, unspecified whether sciatica present 3. Spinal stenosis of lumbar region, unspecified whether neurogenic claudication present 4. Acute exacerbation of chronic low back pain General: General Reason for Referral: Acute on chronic back pain with new onset L LE numbness and pain Referred By: Clintudiabkyaw Past Medical History Relevant to Rehab: Past Medical History: Diagnosis Date Anxiety Arthritis Bipolar disorder Chronic pain disorder Depression HCV (hepatitis C virus) 2013 treated and resolved Herniated lumbar intervertebral disc Liver disease stage 3 - stable Neuropathic pain Plan: Thoracic Laminectomy for Spinal Cord Stimulator Leads; Generator Implant 11/21/23 Obesity Vision loss Prior to Session Communication: Bedside nurse Patient Position Received: Bed, 3 rail up, Alarm on General Comment: (Patient is pleasant and cooperative and motivated to regain prior level of independence.) Precautions: Hearing/Visual Limitations: +glasses Medical Precautions: (Spinal Precautions) Pain: Pain Assessment Pain Assessment: 0-10 0-10 (Numeric) Pain Score: 9 Pain Type: Acute pain Pain Location: Back Objective Cognition: Overall Cognitive Status: Within Functional Limits Orientation Level: Oriented X4 Home Living: Type of Home: ([place] with 3 steps, walk in shower, raised ht toilet) Lives With: Significant other Home Adaptive Equipment: None Prior Function: Level of Jessamine: Independent with ADLs and functional transfers Receives Help From: (Significant other) ADL Assistance: Independent Homemaking Assistance: Independent Ambulatory Assistance: Independent (No assistive device) IADL History: Homemaking Responsibilities: Yes Meal Prep Responsibility: Primary ADL: Eating Assistance: Independent Grooming Assistance: Independent Bathing Assistance: Stand by UE Dressing Assistance: Stand by LE Dressing Assistance: Stand by Toileting Assistance with Device: Stand by Functional Assistance: Stand by Activity Tolerance: Endurance: Endurance does not limit participation in activity Activity Tolerance Comments: (Good activity tolerance) Bed Mobility/Transfers: Bed Mobility Bed Mobility: Yes Bed Mobility 1 Bed Mobility 1: Supine to sitting Level of Assistance 1: Distant supervision Bed Mobility 2 Bed Mobility 2: Sitting to supine Level of Assistance 2: Distant supervision Transfers Transfer: Yes Transfer 1 Transfer From 1: Bed to Transfer to 1: Toilet Technique 1: Sit to stand Transfer Device 1: Walker Transfer Level of Assistance 1: Distant supervision Trials/Comments 1: (Cues for hand placement) Sitting Balance: Static Sitting Balance Static Sitting-Balance Support: Feet supported Static Sitting-Level of Assistance: Independent Dynamic Sitting Balance Dynamic Sitting-Balance Support: Feet supported Dynamic Sitting-Level of Assistance: Distant supervision Dynamic Sitting-Balance: Reaching for objects Standing Balance: Static Standing Balance Static Standing-Balance Support: Bilateral upper extremity supported Static Standing-Level of Assistance: Close supervision IADL's: Homemaking Responsibilities: Yes Meal Prep Responsibility: Primary Vision: Vision - Basic Assessment Current Vision: Wears glasses all the time Strength: Strength Comments: (B UEs- 4/5 Throughout) Coordination: Movements are Fluid and Coordinated: Yes Hand Function: Hand Function Gross Grasp: Functional Coordination: Functional Outcome Measures: [facility] Daily Activity Putting on and taking off regular lower body clothing: A little Bathing (including washing, rinsing, drying): A little Putting on and taking off regular upper body clothing: A little Toileting, which includes using toilet, bedpan or urinal: A little Taking care of personal grooming such as brushing teeth: A little Eating Meals: None Daily Activity - Total Score: 19 Goals: Encounter Problems Encounter Problems (Active) ADLs Patient will perform UB and LB bathing with independent level of assistance. Start: 01/04/24 Expected End: 01/18/24 Patient with complete upper body dressing with independent level of assistance donning and doffing all UE clothes with no adaptive equipment while edge of bed Start: 01/04/24 Expected End: 01/18/24 Patient with complete lower body dressing with independent level of assistance donning and doffing all LE clothes with no adaptive equipment while edge of bed Start: 01/04/24 Expected End: 01/18/24 Patient will complete daily grooming tasks brushing teeth with independent level of assistance and PRN adaptive equipment while edge of bed . Start: 01/04/24 Expected End: 01/18/24 Patient will complete toileting including hygiene clothing management/hygiene with independent level of assistance and raised toilet seat. Start: 01/04/24 Expected End: 01/18/24 BALANCE Pt will maintain dynamic standing balance during ADL task with independent level of assistance in order to demonstrate decreased risk of falling and improved postural control. Start: 01/04/24 Expected End: 01/18/24 TRANSFERS Patient will perform bed mobility independent level of assistance and bed rails in order to improvesafety and independence with mobility Start: 01/04/24 Expected End: 01/18/24 Patient will complete functional transfer to all surfaces with front wheeled walker with modified independent level of assistance. Start: 01/04/24 Expected End: 01/18/24 * Shelton Beck DO - 01/03/2024 7:12 PM EDT Jerad Collins is a 48 y.o. female on day 2 of admission presenting with Lumbar radiculopathy. Subjective Patient was seen and examined at bedside this morning, stating that she is too weak for discharge, as she complained of inability to bear weight on her extremities specially left lower, which has decreased sensation with numbness. Objective Last Recorded Vitals BP 176/88 (BP Location: Left arm, Patient Position: Lying) Pulse 74 Temp 36.8 C (98.3 F) (Temporal) Resp 18 Wt 117 kg (257 lb 8 oz) SpO2 96% Intake/Output last 3 Shifts: Intake/Output Summary (Last 24 hours) at 01/03/2024 1913 Last data filed at 01/03/2024 1641 Gross per 24 hour Intake 960 ml Output 0 ml Net 960 ml Admission Weight Weight: 114 kg (252 lb) (01/01/24 1218) Daily Weight 01/01/24 : 117 kg (257 lb 8 oz) Image Results XR lumbar spine 4+ views w flexion extension Narrative: Interpreted By: Danielle Orozco, STUDY: XR LUMBAR SPINE 4+ VIEWS WITH FLEXION EXTENSION; 01/02/2024 8:59 am INDICATION: Signs/Symptoms:L4-L5 lumbar stenosis with concern for spondylolisthesis. COMPARISON: None. ACCESSION NUMBER(S): [id number] ORDERING CLINICIAN: ANGELA GONZALEZ FINDINGS: Multiple views of the lumbar spine are obtained. Alignment is intact. The vertebral body heights are preserved. Disc space loss at L4/L5 with endplate sclerosis and osteophytes . No acute fracture-dislocation. Impression: Discogenic degenerative changes as described. Signed by: Danielle Orozco 01/02/2024 9:15 AM Dictation workstation: [id number] Physical Exam Constitutional: Obese, pleasant, alert active, cooperative not in acute distress Eyes: PERRLA, clear sclera ENMT: Moist mucosal membranes, no exudate Head / Neck: Atraumatic, normocephalic, supple neck, JVP not visualized Lungs: Patent airways, CTABL Heart: RRR, S1S2, no murmurs appreciated, palpable pulses in all extremities GI: Soft, NT, ND, bowel sounds present in all quadrants MSK: Bilateral weakness in the lower extremities with limitation of ROM, no joint edema Extremities: Decreased strength and sensation in the left lower extremity, no peripheral edema : No Killian catheter inserted Breast: Deferred Neurological: AAO x 3 to person, place and date, facial muscles symmetrical, sensation intact, strength 4/4, no acute focal neurological deficits appreciated Psychological: Appropriate mood and behavior Relevant Results Scheduled medications dexAMETHasone, 4 mg, oral, q6h BLAISE enoxaparin, 40 mg, subcutaneous, q12h BLAISE FLUoxetine, 60 mg, oral, Daily lidocaine, 1 patch, transdermal, Daily methocarbamol, 500 mg, oral, TID pantoprazole, 40 mg, oral, Daily before breakfast polyethylene glycol, 17 g, oral, Daily Continuous medications PRN medications PRN medications: hydrALAZINE, HYDROmorphone, ondansetron ODT OR ondansetron, oxyCODONE, prochlorperazine OR prochlorperazine OR prochlorperazine, zolpidem Assessment/Plan 48 y.o. female with a PMH of anxiety, chronic low back pain, opioid dependence, hepatitis C s/p antiviral therapy, cirrhosis, presenting with worsening of her low back pain. Acute worsening of chronic low back pain - 3rd ED visit in the past few days for the same - noted severe lower back pain with new numbness in LLE - MRI showed mod canal stenosis L4-L5 with crowding of the cauda equina nerve roots. - Dr Adams aware of MRI findings, seen and evaluated by neurosurgery team this a.m. with recommendation for multimodal pain management, no acute inpatient neurological intervention indicated at this time, patient to follow-up in [address] Woodard for further evaluation of the spinal stenosis and candidacy for lumbar decompression. - pain management: Hydromorphone 0.5 mg every 3 hours as needed severe pain, oxycodone 10 mg every 4 hours as needed moderate pain. Methocarbamol 500 mg 3 times daily -Dexamethasone 4 mg p.o. every 6 hours -PT OT: Recommend low intensity level of continue care with wheeled walker at discharge Elevated BP without diagnosis of hypertension -Hydralazine 10 mg IV push as needed systolic BP greater than 160 Nausea -PRN compazine Hx of bipolar/anxiety -Fluoxetine 60 mg daily Diet -Regular DVT prophylaxis -Lovenox 40 mg subcu daily Disposition: Presented with worsening chronic low back pain, with no need for neurosurgical intervention at this time, will benefit from SNF placement. Shelton Beck DO * Alondra Matute, PT - 01/03/2024 3:39 PM EDT Physical Therapy Physical Therapy Evaluation Patient Name: Jerad Collins Department: [facility] Room: [facility]/623-A Today's Date: 01/03/2024 Time Calculation Start Time: 1457 Stop Time: 1510 Time Calculation (min): 13 min Assessment/Plan PT Assessment PT Assessment Results: Decreased strength, Decreased mobility, Obesity, Pain Rehab Prognosis: Good Barriers to Discharge: pain Evaluation/Treatment Tolerance: Patient limited by pain Medical Staff Made Aware: Yes Strengths: Ability to acquire knowledge, Attitude of self, Capable of completing ADLs semi/independent, Insight into problems, Physical health, Premorbid level of function, Rehab experience Barriers to Participation: Support and attitude of living partners (SO will be home until July starting 01/17/24.) End of Session Communication: Bedside nurse Assessment Comment: 48 year-old F presents with acute low back pain with L LE pain/paraesthesias, weakness, inability to negotiate stairs, and decreased ambulation; can benefit from skilled PT intervention to assist with discharge planning and address the aforementioned issues to enable her to return to her prior level of function, which was IND without device. End of Session Patient Position: Bed, 3 rail up, Alarm off, not on at start of session (needs in reach) IP OR SWING BED PT PLAN Inpatient or Swing Bed: Inpatient PT Plan Treatment/Interventions: Transfer training, Gait training, Stair training, Therapeutic exercise, Therapeutic activity, Home exercise program, Strengthening, Neuromuscular re-education PT Plan: Ongoing PT PT Frequency: 3 times per week PT Discharge Recommendations: Low intensity level of continued care Equipment Recommended upon Discharge: Wheeled walker PT Recommended Transfer Status: (up ad sahara with RW) PT - OK to Discharge: Yes (per PT POC) Subjective General Visit Information: General Reason for Referral: Acute on chronic back pain with new onset L LE numbness and pain Referred By: Ebony Past Medical History Relevant to Rehab: Past Medical History: Diagnosis Date Anxiety Arthritis Bipolar disorder Chronic pain disorder Depression HCV (hepatitis C virus) 2013 treated and resolved Herniated lumbar intervertebral disc Liver disease stage 3 - stable Neuropathic pain Plan: Thoracic Laminectomy for Spinal Cord Stimulator Leads; Generator Implant 11/21/23 Obesity Vision loss Past Surgical History: Procedure Laterality Date ADENOIDECTOMY BUNIONECTOMY Bilateral CHOLECYSTECTOMY COLONOSCOPY DENTAL SURGERY Bilateral all teeth removed, dentures HYSTERECTOMY MYRINGOTOMY W/ TUBES Bilateral SPINAL CORD STIMULATOR IMPLANT 09/23/2023 Percutaneous Thoracic Spinal Cord Stimulator Leads and Generator Placement SPINAL CORD STIMULATOR REMOVAL 10/14/2023 SPINAL CORD STIMULATOR TRIAL W/ LAMINOTOMY 08/21/2023 Percutaneous Thoracic Spinal Cord Stimulator Trial TONSILLECTOMY Family/Caregiver Present: No Prior to Session Communication: Bedside nurse Patient Position Received: Bed, 3 rail up, Alarm off, not on at start of session (pt up ad sahara to bathroom with walker) Preferred Learning Style: auditory, verbal General Comment: No barriers to mobility noted in chart or by RN; pt agreeable to PT eval. Pt reports she did outpatient physical therapy prior to having her MRI, spinal cord stimulator, etc. Home Living: Home Living Type of Home: House Lives With: Significant other Home Adaptive Equipment: None Home Layout: One level Home Access: Stairs to enter with rails Entrance Stairs-Rails: Both Entrance Stairs-Number of Steps: 3 Bathroom Shower/Tub: Walk-in shower Bathroom Toilet: Handicapped height Bathroom Equipment: None Prior Level of Function: Prior Function Per Pt/Caregiver Report Level of Jessamine: Independent with ADLs and functional transfers, Independent with homemaking with ambulation Receives Help From: (SO when he is not traveling for work) ADL Assistance: Independent Homemaking Assistance: Independent Ambulatory Assistance: Independent Vocational: Other (Comment) (Pt on medical leave; 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 Precautions: Precautions Hearing/Visual Limitations: +glasses Medical Precautions: Spinal precautions (for comfort) Objective Pain: Pain Assessment Pain Assessment: 0-10 0-10 (Numeric) Pain Score: 8 Pain Type: Acute pain Pain Location: Hip Pain Orientation: Left Pain Radiating Towards: lower leg Pain Descriptors: Pins and needles, Sharp, Shooting Pain Frequency: Constant/continuous Pain Interventions: Ambulation/increased activity Response to Interventions: PT to pt tolerance Cognition: Cognition Overall Cognitive Status: Within Functional Limits Orientation Level: Oriented X4 Attention: Within Functional Limits Memory: Within Funtional Limits Safety/Judgement: Within Functional Limits Insight: Within function limits Impulsive: Within functional limits Processing Speed: Within funtional limits General Assessments: General Observation General Observation: +SLR on L LE; pt unable to heel walk or toe walk 2/2 L LE pain and numbness Activity Tolerance Endurance: Endurance does not limit participation in activity Coordination Movements are Fluid and Coordinated: Yes Postural Control Postural Control: Within Functional Limits Static Sitting Balance Static Sitting-Balance Support: No upper extremity supported, Feet supported Static Sitting-Level of Assistance: Independent Static Sitting-Comment/Number of Minutes: on EOB Dynamic Sitting Balance Dynamic Sitting-Balance Support: No upper extremity supported, Feet supported Dynamic Sitting-Level of Assistance: Independent Dynamic Sitting-Balance: Forward lean (pt with difficulty bending forward 2/2 pain) Dynamic Sitting-Comments: on EOB Static Standing Balance Static Standing-Balance Support: Bilateral upper extremity supported Static Standing-Level of Assistance: Modified independent Static Standing-Comment/Number of Minutes: with RW Dynamic Standing Balance Dynamic Standing-Balance Support: Bilateral upper extremity supported Dynamic Standing-Level of Assistance: Distant supervision Dynamic Standing-Balance: Turning Dynamic Standing-Comments: with RW Functional Assessments: Bed Mobility Bed Mobility: Yes Bed Mobility 1 Bed Mobility 1: Supine to sitting, Sitting to supine Level of Assistance 1: Independent Transfers Transfer: Yes Transfer 1 Transfer From 1: Bed to Transfer to 1: Stand, Sit Technique 1: Sit to stand, Stand to sit Transfer Device 1: Walker Transfer Level of Assistance 1: Distant supervision, Minimal verbal cues Trials/Comments 1: vc's for hand placements Ambulation/Gait Training Ambulation/Gait Training Performed: Yes Ambulation/Gait Training 1 Surface 1: Level tile Device 1: Rolling walker Assistance 1: Distant supervision, Minimal verbal cues Quality of Gait 1: Forward flexed posture, Inconsistent stride length, Decreased step length, Shuffling gait (unable to clear L LE during swing phase, drags LE) Comments/Distance (ft) 1: 25'x2 Stairs Stairs: No Extremity/Trunk Assessments: RUE RUE : Within Functional Limits LUE LUE: Within Functional Limits RLE RLE : Within Functional Limits LLE LLE : Exceptions to WFL Strength LLE LLE Overall Strength: Deficits, Due to pain, Greater than or equal to 3/5 as evidenced by functional mobility Outcome Measures: [facility] Basic Mobility Turning from your back to your side while in a flat bed without using bedrails: None Moving from lying on your back to sitting on the side of a flat bed without using bedrails: None Moving to and from bed to chair (including a wheelchair): None Standing up from a chair using your arms (e.g. wheelchair or bedside chair): None To walk in hospital room: None Climbing 3-5 steps with railing: A little Basic Mobility - Total Score: 23 Encounter Problems Encounter Problems (Active) Mobility STG - Patient will independently ambulate >150' on level surfaces with LRD exhibiting L LE clearance = R LE clearance. Start: 01/03/24 Expected End: 01/10/24 STG - Patient will ascend and descend three stairs with two rails with modified independence. Start: 01/03/24 Expected End: 01/10/24 Pain Pain - Adult Education Documentation Precautions, taught by Alondra Matute PT at 01/03/2024 3:33 PM. Learner: Patient Readiness: Acceptance Method: Explanation Response: Verbalizes Understanding Comment: Pt educated on the importance of ambulating and changing positions hourly, as well as spinal precautions for pain mangement. Body Mechanics, taught by Alondra Matute PT at 01/03/2024 3:33 PM. Learner: Patient Readiness: Acceptance Method: Explanation Response: Verbalizes Understanding Comment: Pt educated on the importance of ambulating and changing positions hourly, as well as spinal precautions for pain mangement. Mobility Training, taught by Alondra Matute PT at 01/03/2024 3:33 PM. Learner: Patient Readiness: Acceptance Method: Explanation Response: Verbalizes Understanding Comment: Pt educated on the importance of ambulating and changing positions hourly, as well as spinal precautions for pain mangement. Education Comments No comments found. * Fozia Daly RN - 01/03/2024 2:33 PM EDT 01/03/24 1531 Physical Activity On average, how many days per week do you engage in moderate to strenuous exercise (like a brisk walk)? 0 days On average, how many minutes do you engage in exercise at this level? 0 min Financial Resource Strain How hard is it for you to pay for the very basics like food, housing, medical care, and heating? Not very Housing Stability In the last 12 months, was there a time when you were not able to pay the mortgage or rent on time?N In the past 12 months, how many times have you moved where you were living? 0 At any time in the past 12 months, were you homeless or living in a senior care (including now)? N Transportation Needs In the past 12 months, has lack of transportation kept you from medical appointments or from getting medications? no In the past 12 months, has lack of transportation kept you from meetings, work, or from getting things needed for daily living? No Food Insecurity Within the past 12 months, you worried that your food would run out before you got the money to buymore. Never true Within the past 12 months, the food you bought just didn't last and you didn't have money to get more. Never true Stress Do you feel stress - tense, restless, nervous, or anxious, or unable to sleep at night because yourmind is troubled all the time - these days? Not at all Social Connections In a typical week, how many times do you talk on the phone with family, friends, or neighbors? Morethan 3 How often do you get together with friends or relatives? Once How often do you attend religion or latter-day services? Never Do you belong to any clubs or organizations such as religion groups, unions, fraternal or athletic groups, or school groups? No How often do you attend meetings of the clubs or organizations you belong to? Never Are you , , , , never , or living with a partner? Intimate Partner Violence Within the last year, have you been afraid of your partner or ex-partner? No Within the last year, have you been humiliated or emotionally abused in other ways by your partner or ex-partner? No Within the last year, have you been kicked, hit, slapped, or otherwise physically hurt by your partner or ex-partner? No Within the last year, have you been raped or forced to have any kind of sexual activity by your partner or ex-partner? No Alcohol Use Q1: How often do you have a drink containing alcohol? Never Q2: How many drinks containing alcohol do you have on a typical day when you are drinking? None Q3: How often do you have six or more drinks on one occasion? Never Utilities In the past 12 months has the [employer]), gas, oil, or water [employer] threatened to shut off services in your home? No Health Literacy How often do you need to have someone help you when you read instructions, pamphlets, or other written material from your doctor or pharmacy? Never * Fozia Daly RN - 01/03/2024 2:30 PM EDT 01/03/24 1534 [facility] Disability Status Are you deaf or do you have serious difficulty hearing? N Are you blind or do you have serious difficulty seeing, even when wearing glasses? N Because of a physical, mental, or emotional condition, do you have serious difficulty concentrating, remembering, or making decisions? (5 years old or older) N Do you have serious difficulty walking or climbing stairs? Y Do you have serious difficulty dressing or bathing? N Because of a physical, mental, or emotional condition, do you have serious difficulty doing errandsalone such as visiting the doctor? 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 Not very Housing Stability In the last 12 months, was there a time when you were not able to pay the mortgage or rent on time?N In the past 12 months, how many times have you moved where you were living? 0 At any time in the past 12 months, were you homeless or living in a senior care (including now)? N Transportation Needs In the past 12 months, has lack of transportation kept you from medical appointments or from getting medications? no (PCP listed, scheduled appointment 01/17/2024/family will drive to appointment) In the past 12 months, has lack of transportation kept you from meetings, work, or from getting things needed for daily living? No Cotton Picker Operator Note: Met patient at bedside to discuss discharge planning, explained my role as aged or disabled carer Plan: per chart review/ Neurosurgery Recommend pain management team consultation. Status: Inpatient d/t Left leg weakness,spinal stenosis of lumbar region Payor: [employer] Disposition: PT/OT evals pending Fozia MARQUEZ RN TCC * Jazmyn Ohara APRN-MARINA - 01/02/2024 9:48 AM EDT Jerad Collins is a 48 y.o. female on day 1 of admission presenting with No Principal Problem: There is no principal problem currently on the Problem List. Please update the Problem List and refresh.. Subjective Patient seen and examined. Alert/awake/oriented. Denies chest pain, shortness of breath, fevers, chills, nausea, or vomiting. No abdominal discomfort. Denies lightheadedness or dizziness. Reports no relief with the morphine. Also having nausea with pain medications. Has numbness to LLE and severe pain to her lower back. Objective Last Recorded Vitals BP 114/65 (BP Location: Left arm, Patient Position: Lying) Pulse 67 Temp 36.3 C (97.3 F) (Oral) Resp 19 Wt 117 kg (257 lb 8 oz) SpO2 95% Intake/Output last 3 Shifts: No intake or output data in the 24 hours ending 01/02/24 0948 Admission Weight Weight: 114 kg (252 lb) (01/01/24 1218) Daily Weight 01/01/24 : 117 kg (257 lb 8 oz) Image Results XR lumbar spine 4+ views w flexion extension Narrative: Interpreted By: Danielle Oroczo, STUDY: XR LUMBAR SPINE 4+ VIEWS WITH FLEXION EXTENSION; 01/02/2024 8:59 am INDICATION: Signs/Symptoms:L4-L5 lumbar stenosis with concern for spondylolisthesis. COMPARISON: None. ACCESSION NUMBER(S): [id number] ORDERING CLINICIAN: ANGELA GONZALEZ FINDINGS: Multiple views of the lumbar spine are obtained. Alignment is intact. The vertebral body heights are preserved. Disc space loss at L4/L5 with endplate sclerosis and osteophytes . No acute fracture-dislocation. Impression: Discogenic degenerative changes as described. Signed by: Danielle Orozco 01/02/2024 9:15 AM Dictation workstation: [id number] Physical Exam Vitals reviewed. Constitutional: Appearance: Normal appearance. HENT: Head: Normocephalic and atraumatic. Eyes: Extraocular Movements: Extraocular movements intact. Conjunctiva/sclera: Conjunctivae normal. Cardiovascular: Rate and Rhythm: Normal rate and regular rhythm. Pulmonary: Effort: Pulmonary effort is normal. Breath sounds: Normal breath sounds. No wheezing, rhonchi or rales. Abdominal: General: Bowel sounds are normal. Palpations: Abdomen is soft. Tenderness: There is no abdominal tenderness. Skin: General: Skin is warm and dry. Neurological: General: No focal deficit present. Mental Status: She is alert and oriented to person, place, and time. Sensory: Sensory deficit present. Motor: Weakness present. Relevant Results Lab Results Component Value Date GLUCOSE 124 (H) 01/02/2024 CALCIUM 8.5 (L) 01/02/2024 NA 136 01/02/2024 K 4.1 01/02/2024 CO2 24 01/02/2024 CL 104 01/02/2024 BUN 12 01/02/2024 CREATININE 0.58 01/02/2024 Lab Results Component Value Date WBC 9.7 01/02/2024 HGB 13.0 01/02/2024 HCT 41.6 01/02/2024 MCV 96 01/02/2024 PLT 268 01/02/2024 XR lumbar spine 4+ views w flexion extension Result Date: 01/02/2024 Discogenic degenerative changes as described. Signed by: Danielle Orozco 01/02/2024 9:15 AM Dictationworkstation: [id number] Assessment/Plan Acute worsening of chronic low back pain - 3rd ED visit in the past few days for the same - noted severe lower back pain with new numbness in LLE - MRI showed mod canal stenosis L4-L5 with crowding of the cauda equina nerve roots. - Dr Adams aware of MRI findings and will see pt in the AM. - pain management - neuro checks q4hr Nausea -PRN compazine Hx of bipolar/anxiety -resume home medications Plan NPO for now pending further input from neurosurgery Pain management PT/OT DVT prophylaxis BMP and CBC in AM Jazmyn Ohara APRN-MARINA * Oliva Mccullough - 01/01/2024 8:41 PM EDT Pharmacy Medication History Review Jerad Collins is a 48 y.o. female admitted for No Principal Problem: There is no principal problem currently on the Problem List. Please update the Problem List and refresh.. Pharmacy reviewedthe patient's onnas-du-skotvzljm medications and allergies for accuracy. The list below reflectives the updated COVER CUTTER list. Please review each medication in order reconciliation for additional clarification and justification. Prior to Admission Medications Prescriptions Last Dose Informant FLUoxetine (PROzac) 60 mg tablet Unknown Self Sig: Take 1 tablet (60 mg) by mouth once daily. diphenhydrAMINE (Sominex) 25 mg tablet Unknown Sig: Take 1 tablet (25 mg) by mouth every 6 hours for 5 days. hydrOXYzine HCL (Atarax) 25 mg tablet Unknown Self Sig: Take 1 tablet (25 mg) by mouth 3 times a day as needed for anxiety. lidocaine (Lidoderm) 5 % patch Unknown Self Sig: Place 1 patch over 12 hours on the skin once daily. Remove & discard patch within 12 hoursor as directed by MD. methocarbamol (Robaxin) 500 mg tablet Unknown Self Sig: Take 1 tablet (500 mg) by mouth 3 times a day for 7 days. naloxone (Narcan) 4 mg/0.1 mL nasal spray Unknown Self Sig: Administer 1 spray (4 mg) into affected nostril(s) if needed for opioid reversal. May repeat every 2-3 minutes if needed, alternating nostrils, until medical assistance becomes available. naproxen (Naprosyn) 500 mg tablet Unknown Self Sig: Take 1 tablet (500 mg) by mouth 2 times daily (morning and late afternoon) for 15 days. omeprazole (PriLOSEC) [address] capsule Unknown Self Sig: Take 2 capsules (40 mg) by mouth once daily. Do not crush or chew. ondansetron ODT (Zofran-ODT) 4 mg disintegrating tablet Unknown Sig: Take 1 tablet (4 mg) by mouth every 8 hours if needed for nausea or vomiting for up to 7 days. oxyCODONE (Roxicodone) 5 mg immediate release tablet Unknown Self Sig: Take 1 tablet (5 mg) by mouth every 6 hours if needed for severe pain (7 - 10) for up to 3 days. tiZANidine (Zanaflex) 2 mg capsule Unknown Self Sig: Take 1 capsule (2 mg) by mouth 3 times a day. Facility-Administered Medications: None The list below reflectives the updated allergy list. Please review each documented allergy for additional clarification and justification. Allergies Reviewed by Oliva Mccullough on 01/01/2024 Severity Reactions Comments Penicillins Medium Hives Reported hives as a child. Prescribed cephalexin September 2023 and reported itching only (no rash/hives). Also reports having taken amoxicillin in the past and tolerated. Gabapentin Not Specified Headache Tylenol [acetaminophen] Not Specified Unknown History of stage III liver fibrosis Nabumetone Low Nausea/vomiting, Rash Below are additional concerns with the patient's COVER CUTTER list. The following updates were made to the Prior to Admission medication list: Source of Information: Medications ADDED: N/a Medications CHANGED: N/a Medications REMOVED: N/a Medications NOT TAKING: N/a Allergy reviewed : Yes Comments: confirmed meds with patient Oliva Mccullough documented in this [facility] Work Phone: 1(377) 596-424910-12-2024 Plan of care note* Care Plan - Yaritza Rae RN - 01/04/2024 11:19 AM EDT The patient's goals for the shift include manage pain Problem: Fall/Injury Goal: Not fall by end of shift Outcome: Progressing Goal: Be free from injury by end of the shift Outcome: Progressing Goal: Verbalize understanding of personal risk factors for fall in the hospital Outcome: Progressing Goal: Verbalize understanding of risk factor reduction measures to prevent injury from fall in the home Outcome: Progressing Goal: Use assistive devices by end of the shift Outcome: Progressing Goal: Pace activities to prevent fatigue by end of the shift Outcome: Progressing Problem: Pain Goal: Takes deep breaths with improved pain control throughout the shift Outcome: Progressing Goal: Turns in bed with improved pain control throughout the shift Outcome: Progressing Goal: Walks with improved pain control throughout the shift Outcome: Progressing Goal: Performs ADL's with improved pain control throughout shift Outcome: Progressing Goal: Participates in PT with improved pain control throughout the shift Outcome: Progressing Goal: Free from opioid side effects throughout the shift Outcome: Progressing Goal: Free from acute confusion related to pain meds throughout the shift Outcome: Progressing Problem: Pain - Adult Goal: Verbalizes/displays adequate comfort level or baseline comfort level Outcome: Progressing Problem: Safety - Adult Goal: Free from fall injury Outcome: Progressing Problem: Discharge Planning Goal: Discharge to home or other facility with appropriate resources Outcome: Progressing Problem: Chronic Conditions and Co-morbidities Goal: Patient's chronic conditions and co-morbidity symptoms are monitored and maintained or improved Outcome: Progressing Problem: Pain Goal: STG - Patients pain is adequately managed to allow active participation in daily activities and therapy. Outcome: Progressing Goal: STG - Patient will increase her activity level to enable her to achieve above goals with acceptable pain level. Outcome: Progressing The clinical goals for the shift include patient will remain free of falls [facility]10-12-2024 Miscellaneous Notes* Care Plan - Yaritza Rae RN - 01/04/2024 11:19 AM EDT The patient's goals for the shift include manage pain Problem: Fall/Injury Goal: Not fall by end of shift Outcome: Progressing Goal: Be free from injury by end of the shift Outcome: Progressing Goal: Verbalize understanding of personal risk factors for fall in the hospital Outcome: Progressing Goal: Verbalize understanding of risk factor reduction measures to prevent injury from fall in the home Outcome: Progressing Goal: Use assistive devices by end of the shift Outcome: Progressing Goal: Pace activities to prevent fatigue by end of the shift Outcome: Progressing Problem: Pain Goal: Takes deep breaths with improved pain control throughout the shift Outcome: Progressing Goal: Turns in bed with improved pain control throughout the shift Outcome: Progressing Goal: Walks with improved pain control throughout the shift Outcome: Progressing Goal: Performs ADL's with improved pain control throughout shift Outcome: Progressing Goal: Participates in PT with improved pain control throughout the shift Outcome: Progressing Goal: Free from opioid side effects throughout the shift Outcome: Progressing Goal: Free from acute confusion related to pain meds throughout the shift Outcome: Progressing Problem: Pain - Adult Goal: Verbalizes/displays adequate comfort level or baseline comfort level Outcome: Progressing Problem: Safety - Adult Goal: Free from fall injury Outcome: Progressing Problem: Discharge Planning Goal: Discharge to home or other facility with appropriate resources Outcome: Progressing Problem: Chronic Conditions and Co-morbidities Goal: Patient's chronic conditions and co-morbidity symptoms are monitored and maintained or improved Outcome: Progressing Problem: Pain Goal: STG - Patients pain is adequately managed to allow active participation in daily activities and therapy. Outcome: Progressing Goal: STG - Patient will increase her activity level to enable her to achieve above goals with acceptable pain level. Outcome: Progressing The clinical goals for the shift include patient will remain free of falls * Care Plan - Suzie Bello RN - 01/04/2024 1:11 AM EDT The patient's goals for the shift include vss The clinical goals for the shift include Patient will remain HDS Over the shift, the patient did not make progress toward the following goals. Barriers to progression include n/a. Recommendations to address these barriers include n/a. * Significant Event - Rashad Christiansen MD - 01/03/2024 5:49 AM EDT Neurosurgery updated recs: Patient's imaging reviewed. There is evidence of degenerative lumbar disease without any significant spondylolisthesis. Recommend continuing multimodal pain management. No acute inpatient neurosurgical intervention is indicated at this time. Encourage physical therapy and rehabilitation. Recommend pain management team consultation. He will arrange a 1 to 3-week follow-up with Dr. Woodard for further evaluation of the spinal stenosis and candidacy for lumbar decompression. (Follow-up will be arranged by neurosurgery) * Care Plan - Suzie Bello RN - 01/02/2024 10:21 PM EDT The patient's goals for the shift include vss The clinical goals for the shift include Patient will remin HDS Over the shift, the patient did not make progress toward the following goals. Barriers to progression include n/a. Recommendations to address these barriers include n/a. * Care Plan - Maria Alejandra Wells RN - 01/01/2024 11:57 PM EDT The patient's goals for the shift include sleep comfortable The clinical goals for the shift include pain manage below 6/10 * Care Plan - Joseph Hollins RN - 01/01/2024 11:41 PM EDT The patient's goals for the shift include decrease in pain The clinical goals for the shift include remain free from falls [facility] 1([phone]) 536-887810-12-2024 Plan of care note* Care Plan - Suzie Bello RN - 01/04/2024 1:11 AM EDT The patient's goals for the shift include vss The clinical goals for the shift include Patient will remain HDS Over the shift, the patient did not make progress toward the following goals. Barriers to progression include n/a. Recommendations to address these barriers include n/a. [facility]10-11-2024 Note* Significant Event - Rashad Christiansen MD - 01/03/2024 5:49 AM EDT Neurosurgery updated recs: Patient's imaging reviewed. There is evidence of degenerative lumbar disease without any significant spondylolisthesis. Recommend continuing multimodal pain management. No acute inpatient neurosurgical intervention is indicated at this time. Encourage physical therapy and rehabilitation. Recommend pain management team consultation. He will arrange a 1 to 3-week follow-up with Dr. Woodard for further evaluation of the spinal stenosis and candidacy for lumbar decompression. (Follow-up will be arranged by neurosurgery) [facility] Work Phone: 1(920) 870-222310-10-2024 Plan of care note* Care Plan - Suzie Bello RN - 01/02/2024 10:21 PM EDT The patient's goals for the shift include vss The clinical goals for the shift include Patient will remin HDS Over the shift, the patient did not make progress toward the following goals. Barriers to progression include n/a. Recommendations to address these barriers include n/a. [facility] Work Phone: [phone]) 726-251310-09-2024 Plan of care note* Care Plan - Maria Alejandra Wells RN - 01/01/2024 11:57 PM EDT The patient's goals for the shift include sleep comfortable The clinical goals for the shift include pain manage below 6/10 [facility]10-09-2024 Plan of care note* Care Plan - Joseph Hollins RN - 01/01/2024 11:41 PM EDT The patient's goals for the shift include decrease in pain The clinical goals for the shift include remain free from [place] [facility] Work Phone: [phone] 529-168110-09-2024 History and physical note* Simon Dominguez MD - 01/01/2024 10:02 PM EDT History Of Present Illness Jerad Collins is a 48 y.o. female with a PMH of anxiety, chronic low back pain, opioid dependence, hepatitis C s/p antiviral therapy, cirrhosis, presenting with worsening of her low back pain. 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 Temporarily had a pain pump which worked well, however this was removed on 10/13 with concern for infection. She states she woke up this morning with numbness of her left leg. She bangs on her leg with her fist and tells me she feels nothing. When asked about numbness of her perineal area, she tells me it was not present when she came to the ED, but developed 2 hrs before I saw her. Also reports no BM this am (states normally a BM every am), and has been going to the bathroom several times in the ED, with only dribbles coming out . Thinks she is retaining urine. Bladder scan immediately after her urinating shows 1cc PVR. Review of the EMR shows ED visits 12/28 and 12/29 for the same. Labs obtained tonight essentially normal. MRI L spine showed moderate canal stenosis at L4-5 secondary to disc bulge with crowding of the cauda equina nerve roots slightly progressed from previous MRI of 12/18/23. Dr Adams, her neurosurgeon is aware that the pt is being admitted and will see her in the am. Past Medical History Past Medical History: Diagnosis Date Anxiety Arthritis Bipolar disorder Chronic pain disorder Depression HCV (hepatitis C virus) 2013 treated and resolved Herniated lumbar intervertebral disc Liver disease stage 3 - stable Neuropathic pain Plan: Thoracic Laminectomy for Spinal Cord Stimulator Leads; Generator Implant 11/21/23 Obesity Vision loss Surgical History Past Surgical History: Procedure Laterality Date ADENOIDECTOMY BUNIONECTOMY Bilateral CHOLECYSTECTOMY COLONOSCOPY DENTAL SURGERY Bilateral all teeth removed, dentures HYSTERECTOMY MYRINGOTOMY W/ TUBES Bilateral SPINAL CORD STIMULATOR IMPLANT 09/23/2023 Percutaneous Thoracic Spinal Cord Stimulator Leads and Generator Placement SPINAL CORD STIMULATOR REMOVAL 10/14/2023 SPINAL CORD STIMULATOR TRIAL W/ LAMINOTOMY 08/21/2023 Percutaneous Thoracic Spinal Cord Stimulator Trial TONSILLECTOMY Social History She reports that she has been smoking cigarettes. She started smoking about 32 years ago. She has a16.4 pack-year smoking history. She has never used smokeless tobacco. She reports that she does notcurrently use drugs. She reports that she does not drink alcohol. Family History Family History Problem Relation Name Age of Onset Lung disease Mother COPD Mother Lung disease Father Lung cancer Father Heart disease Father Allergies Penicillins, Gabapentin, Tylenol [acetaminophen], and Nabumetone Review of Systems Constitutional: Negative. Negative for chills and fever. HENT: Negative. Eyes: Negative. Respiratory: Negative. Cardiovascular: Negative. Gastrointestinal: Negative. Negative for diarrhea, nausea and vomiting. Genitourinary: Negative. Musculoskeletal: Positive for back pain. Skin: Negative. Allergic/Immunologic: Negative. Neurological: Positive for numbness. Reports numbness of her entire LLE and of her perineal area. Hematological: Negative. Psychiatric/Behavioral: Negative. Physical Exam Constitutional: Comments: Obese white female, appears older than chronologic age, sitting on the edge of her bed inthe ED hallway, rocking back and forth. She is alert, oriented, provides a good history. She is able to ambulate to the bathroom. Cardiovascular: Comments: Rhythm and rate normal. She is not tachycardic. Pulmonary: Comments: Lungs clear. Skin: Comments: Incision along L spine is clean, dry, intact. No signs of infection. Neurological: Comments: Numbness of LLE On neuro exam, initially barely moved LLE; however when prompted that she could do better than that, she was able to dorsiflex and plantar flex her L foot. Was able to lift her LLE off the bed a few inches, however, as soon as the leg was touched, the leg fell to the bed. Rectal tone not checked; pt in a hallway bed. Last Recorded Vitals Blood pressure 170/76, pulse 83, temperature 36.5 C (97.7 F), resp. rate 18, height 1.6 m (5' 3 ), weight 114 kg (252 lb), SpO2 96%. Relevant Results Results for orders placed or performed during the hospital encounter of 01/01/24 (from the past 24 hour(s)) Sedimentation Rate Result Value Ref Range Sedimentation Rate 17 0 - 20 mm/h C-Reactive Protein Result Value Ref Range C-Reactive Protein 0.36 <1.00 mg/dL CBC and Auto Differential Result Value Ref Range WBC 8.9 4.4 - 11.3 x10*3/uL nRBC 0.0 0.0 - 0.0 /100 WBCs RBC 4.37 4.00 - 5.20 x10*6/uL Hemoglobin 13.2 12.0 - 16.0 g/dL Hematocrit 42.0 36.0 - 46.0 % MCV 96 80 - 100 fL MCH 30.2 26.0 - 34.0 pg MCHC 31.4 (L) 32.0 - 36.0 g/dL RDW 13.5 11.5 - 14.5 % Platelets 317 150 - 450 x10*3/uL Neutrophils % 49.8 40.0 - 80.0 % Immature Granulocytes %, Automated 0.2 0.0 - 0.9 % Lymphocytes % 38.9 13.0 - 44.0 % Monocytes % 8.5 2.0 - 10.0 % Eosinophils % 2.5 0.0 - 6.0 % Basophils % 0.1 0.0 - 2.0 % Neutrophils Absolute 4.41 1.20 - 7.70 x10*3/uL Immature Granulocytes Absolute, Automated 0.02 0.00 - 0.70 x10*3/uL Lymphocytes Absolute 3.44 1.20 - 4.80 x10*3/uL Monocytes Absolute 0.75 0.10 - 1.00 x10*3/uL Eosinophils Absolute 0.22 0.00 - 0.70 x10*3/uL Basophils Absolute 0.01 0.00 - 0.10 x10*3/uL Comprehensive Metabolic Panel Result Value Ref Range Glucose 101 (H) 74 - 99 mg/dL Sodium 139 136 - 145 mmol/L Potassium 4.8 3.5 - 5.3 mmol/L Chloride 106 98 - 107 mmol/L Bicarbonate 25 21 - 32 mmol/L Anion Gap 13 10 - 20 mmol/L Urea Nitrogen 20 6 - 23 mg/dL Creatinine 0.71 0.50 - 1.05 mg/dL eGFR >90 >60 mL/min/1.73m*2 Calcium 8.2 (L) 8.6 - 10.3 mg/dL Albumin 4.1 3.4 - 5.0 g/dL Alkaline Phosphatase 75 33 - 110 U/L Total Protein 6.8 6.4 - 8.2 g/dL AST 25 9 - 39 U/L Bilirubin, Total 0.2 0.0 - 1.2 mg/dL ALT 19 7 - 45 U/L MR lumbar spine w and wo IV contrast Result Date: 01/01/2024 Interpreted By: Claudio Balderas, STUDY: MR LUMBAR SPINE W AND WO IV CONTRAST INDICATION: Signs/Symptoms:Paresthesia and weakness of the left lower extremity COMPARISON: Lumbar spine MRI 12/18/2023 ACCESSION NUMBER(S): [id number] ORDERING CLINICIAN: MICHELE LION TECHNIQUE: Multiplanar multisequence MRI of the lumbar spine was performed before and after the administration of intravenous contrast,according to standard protocol. FINDINGS: ALIGNMENT: The alignment is normal. VERTEBRAE: The vertebral bodies are normal in height. There is no fracture or aggressive osseous lesion. Modic type 2 endplate degenerative change at L4-5. no abnormal enhancement. DISCS: Disc desiccation and mild disc height loss at L4-5. Disc desiccation at L5-S1 with overall preserved height. Remaining discs are maintained. CONUS MEDULLARIS AND CAUDA EQUINA: The conus medullaris terminates at L2. Crowding of the cauda equina nerve roots at L4-5 secondary to degenerative change detailed further below. Remaining cauda equina nerve roots are unremarkable. PARAVERTEBRAL SOFT TISSUES AND VISUALIZED RETROPERITONEUM: The visualized paravertebral soft tissues appear within normal limits. Edema within the midline upper superficial soft tissues of the lower back again noted. No focal fluid collection. No abnormal enhancement. EVALUATION OF INDIVIDUAL LEVELS: L1-2: No disc herniation spinal canal or neuroforaminal stenosis. L2-3: No disc herniation spinal canal or neuroforaminal stenosis. L3- 4: No disc herniation spinal canal or neuroforaminal stenosis. L4-5: Disc bulge with superimposed left paracentral disc protrusion, facet hypertrophy, and infolding of ligamentum flavum results in moderate narrowing of thespinal canal and effacement of left subarticular recess with possible contact of the traversing left L5 nerve root. There is moderate bilateral foraminal stenosis. Canal stenosis appears slightly progressed from previous MRI. L5-S1: Disc bulge asymmetric to the right with facet hypertrophy results in moderate right and mild left foraminal stenosis. Spinal canal remains patent. LIMITED EVALUATION OF UPPER SACRUM AND SACROILIAC JOINTS: Mild degenerative changes of the sacroiliac joints. Moderate canal stenosis at L4-5 secondary to disc bulge with crowding of the cauda equina nerve roots, slightly progressed from previous MRI 12/18/2023. Left paracentral disc protrusion at this levellikely contacts the traversing left L5 nerve root. No abnormal enhancement. Signed by: Claudio Balderas01/01/2024 5:46 PM Dictation workstation: [id number] Assessment/Plan Assessment & Plan Acute worsening of chronic low back pain - 3rd ED visit in the past few days for the same - states the numbness of her LLE is new as of this am, developed numbness of the perineal area in the ED at approx 8pm - MRI showed mod canal stenosis L4-L5 with crowding of the cauda equina nerve roots. - Dr Adams aware of MRI findings and will see pt in the AM. - morphine, Decadron, lidoderm patch for pain - neuro checks q4hr I spent 60 minutes in the professional and overall care of this patient. Simon Dominguez MD [facility] Work Phone: 1(479) 657-902110-09-2024 History and physical note* Simon Dominguez MD - 01/01/2024 10:02 PM EDT History Of Present Illness Jerad Collins is a 48 y.o. female with a PMH of anxiety, chronic low back pain, opioid dependence, hepatitis C s/p antiviral therapy, cirrhosis, presenting with worsening of her low back pain. 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 Temporarily had a pain pump which worked well, however this was removed on 10/13 with concern for infection. She states she woke up this morning with numbness of her left leg. She bangs on her leg with her fist and tells me she feels nothing. When asked about numbness of her perineal area, she tells me it was not present when she came to the ED, but developed 2 hrs before I saw her. Also reports no BM this am (states normally a BM every am), and has been going to the bathroom several times in the ED, with only dribbles coming out . Thinks she is retaining urine. Bladder scan immediately after her urinating shows 1cc PVR. Review of the EMR shows ED visits 12/28 and 12/29 for the same. Labs obtained tonight essentially normal. MRI L spine showed moderate canal stenosis at L4-5 secondary to disc bulge with crowding of the cauda equina nerve roots slightly progressed from previous MRI of 12/18/23. Dr Adams, her neurosurgeon is aware that the pt is being admitted and will see her in the am. Past Medical History Past Medical History: Diagnosis Date Anxiety Arthritis Bipolar disorder Chronic pain disorder Depression HCV (hepatitis C virus) 2013 treated and resolved Herniated lumbar intervertebral disc Liver disease stage 3 - stable Neuropathic pain Plan: Thoracic Laminectomy for Spinal Cord Stimulator Leads; Generator Implant 11/21/23 Obesity Vision loss Surgical History Past Surgical History: Procedure Laterality Date ADENOIDECTOMY BUNIONECTOMY Bilateral CHOLECYSTECTOMY COLONOSCOPY DENTAL SURGERY Bilateral all teeth removed, dentures HYSTERECTOMY MYRINGOTOMY W/ TUBES Bilateral SPINAL CORD STIMULATOR IMPLANT 09/23/2023 Percutaneous Thoracic Spinal Cord Stimulator Leads and Generator Placement SPINAL CORD STIMULATOR REMOVAL 10/14/2023 SPINAL CORD STIMULATOR TRIAL W/ LAMINOTOMY 08/21/2023 Percutaneous Thoracic Spinal Cord Stimulator Trial TONSILLECTOMY Social History She reports that she has been smoking cigarettes. She started smoking about 32 years ago. She has a16.4 pack-year smoking history. She has never used smokeless tobacco. She reports that she does notcurrently use drugs. She reports that she does not drink alcohol. Family History Family History Problem Relation Name Age of Onset Lung disease Mother COPD Mother Lung disease Father Lung cancer Father Heart disease Father Allergies Penicillins, Gabapentin, Tylenol [acetaminophen], and Nabumetone Review of Systems Constitutional: Negative. Negative for chills and fever. HENT: Negative. Eyes: Negative. Respiratory: Negative. Cardiovascular: Negative. Gastrointestinal: Negative. Negative for diarrhea, nausea and vomiting. Genitourinary: Negative. Musculoskeletal: Positive for back pain. Skin: Negative. Allergic/Immunologic: Negative. Neurological: Positive for numbness. Reports numbness of her entire LLE and of her perineal area. Hematological: Negative. Psychiatric/Behavioral: Negative. Physical Exam Constitutional: Comments: Obese white female, appears older than chronologic age, sitting on the edge of her bed inthe ED hallway, rocking back and forth. She is alert, oriented, provides a good history. She is able to ambulate to the bathroom. Cardiovascular: Comments: Rhythm and rate normal. She is not tachycardic. Pulmonary: Comments: Lungs clear. Skin: Comments: Incision along L spine is clean, dry, intact. No signs of infection. Neurological: Comments: Numbness of LLE On neuro exam, initially barely moved LLE; however when prompted that she could do better than that, she was able to dorsiflex and plantar flex her L foot. Was able to lift her LLE off the bed a few inches, however, as soon as the leg was touched, the leg fell to the bed. Rectal tone not checked; pt in a hallway bed. Last Recorded Vitals Blood pressure 170/76, pulse 83, temperature 36.5 C (97.7 F), resp. rate 18, height 1.6 m (5' 3 ), weight 114 kg (252 lb), SpO2 96%. Relevant Results Results for orders placed or performed during the hospital encounter of 01/01/24 (from the past 24 hour(s)) Sedimentation Rate Result Value Ref Range Sedimentation Rate 17 0 - 20 mm/h C-Reactive Protein Result Value Ref Range C-Reactive Protein 0.36 <1.00 mg/dL CBC and Auto Differential Result Value Ref Range WBC 8.9 4.4 - 11.3 x10*3/uL nRBC 0.0 0.0 - 0.0 /100 WBCs RBC 4.37 4.00 - 5.20 x10*6/uL Hemoglobin 13.2 12.0 - 16.0 g/dL Hematocrit 42.0 36.0 - 46.0 % MCV 96 80 - 100 fL MCH 30.2 26.0 - 34.0 pg MCHC 31.4 (L) 32.0 - 36.0 g/dL RDW 13.5 11.5 - 14.5 % Platelets 317 150 - 450 x10*3/uL Neutrophils % 49.8 40.0 - 80.0 % Immature Granulocytes %, Automated 0.2 0.0 - 0.9 % Lymphocytes % 38.9 13.0 - 44.0 % Monocytes % 8.5 2.0 - 10.0 % Eosinophils % 2.5 0.0 - 6.0 % Basophils % 0.1 0.0 - 2.0 % Neutrophils Absolute 4.41 1.20 - 7.70 x10*3/uL Immature Granulocytes Absolute, Automated 0.02 0.00 - 0.70 x10*3/uL Lymphocytes Absolute 3.44 1.20 - 4.80 x10*3/uL Monocytes Absolute 0.75 0.10 - 1.00 x10*3/uL Eosinophils Absolute 0.22 0.00 - 0.70 x10*3/uL Basophils Absolute 0.01 0.00 - 0.10 x10*3/uL Comprehensive Metabolic Panel Result Value Ref Range Glucose 101 (H) 74 - 99 mg/dL Sodium 139 136 - 145 mmol/L Potassium 4.8 3.5 - 5.3 mmol/L Chloride 106 98 - 107 mmol/L Bicarbonate 25 21 - 32 mmol/L Anion Gap 13 10 - 20 mmol/L Urea Nitrogen 20 6 - 23 mg/dL Creatinine 0.71 0.50 - 1.05 mg/dL eGFR >90 >60 mL/min/1.73m*2 Calcium 8.2 (L) 8.6 - 10.3 mg/dL Albumin 4.1 3.4 - 5.0 g/dL Alkaline Phosphatase 75 33 - 110 U/L Total Protein 6.8 6.4 - 8.2 g/dL AST 25 9 - 39 U/L Bilirubin, Total 0.2 0.0 - 1.2 mg/dL ALT 19 7 - 45 U/L MR lumbar spine w and wo IV contrast Result Date: 01/01/2024 Interpreted By: Claudio Balderas, STUDY: MR LUMBAR SPINE W AND WO IV CONTRAST INDICATION: Signs/Symptoms:Paresthesia and weakness of the left lower extremity COMPARISON: Lumbar spine MRI 12/18/2023 ACCESSION NUMBER(S): [id number] ORDERING CLINICIAN: MICHELE LION TECHNIQUE: Multiplanar multisequence MRI of the lumbar spine was performed before and after the administration of intravenous contrast,according to standard protocol. FINDINGS: ALIGNMENT: The alignment is normal. VERTEBRAE: The vertebral bodies are normal in height. There is no fracture or aggressive osseous lesion. Modic type 2 endplate degenerative change at L4-5. no abnormal enhancement. DISCS: Disc desiccation and mild disc height loss at L4-5. Disc desiccation at L5-S1 with overall preserved height. Remaining discs are maintained. CONUS MEDULLARIS AND CAUDA EQUINA: The conus medullaris terminates at L2. Crowding of the cauda equina nerve roots at L4-5 secondary to degenerative change detailed further below. Remaining cauda equina nerve roots are unremarkable. PARAVERTEBRAL SOFT TISSUES AND VISUALIZED RETROPERITONEUM: The visualized paravertebral soft tissues appear within normal limits. Edema within the midline upper superficial soft tissues of the lower back again noted. No focal fluid collection. No abnormal enhancement. EVALUATION OF INDIVIDUAL LEVELS: L1-2: No disc herniation spinal canal or neuroforaminal stenosis. L2-3: No disc herniation spinal canal or neuroforaminal stenosis. L3- 4: No disc herniation spinal canal or neuroforaminal stenosis. L4-5: Disc bulge with superimposed left paracentral disc protrusion, facet hypertrophy, and infolding of ligamentum flavum results in moderate narrowing of thespinal canal and effacement of left subarticular recess with possible contact of the traversing left L5 nerve root. There is moderate bilateral foraminal stenosis. Canal stenosis appears slightly progressed from previous MRI. L5-S1: Disc bulge asymmetric to the right with facet hypertrophy results in moderate right and mild left foraminal stenosis. Spinal canal remains patent. LIMITED EVALUATION OF UPPER SACRUM AND SACROILIAC JOINTS: Mild degenerative changes of the sacroiliac joints. Moderate canal stenosis at L4-5 secondary to disc bulge with crowding of the cauda equina nerve roots, slightly progressed from previous MRI 12/18/2023. Left paracentral disc protrusion at this levellikely contacts the traversing left L5 nerve root. No abnormal enhancement. Signed by: Claudio Balderas01/01/2024 5:46 PM Dictation workstation: [id number] Assessment/Plan Assessment & Plan Acute worsening of chronic low back pain - 3rd ED visit in the past few days for the same - states the numbness of her LLE is new as of this am, developed numbness of the perineal area in the ED at approx 8pm - MRI showed mod canal stenosis L4-L5 with crowding of the cauda equina nerve roots. - Dr Adams aware of MRI findings and will see pt in the AM. - morphine, Decadron, lidoderm patch for pain - neuro checks q4hr I spent 60 minutes in the professional and overall care of this patient. Simon Dominguez MD documented in this [facility] Work Phone: 1(817) [phone] NoteModerate canal stenosis at L4-5 secondary to disc bulge with crowding of the cauda equina nerve roots, slightly progressed from previous MRI 12/18/2023. Left paracentral disc protrusion at this level likely contacts the traversing left L5 nerve root. No abnormal enhancement. Signed by: Claudio Balderas 01/01/2024 5:46 PM Dictation workstation: [id number] Emergency department Note * [facility]/01/2024 3:45 PM EDT Community Resource Name:No primary care physician Phone Number: Staff Member: Tracee Maurice Discussed the following topics on behalf of the patient: [] Behavioral Health Assistance [] Case Management [] [employer] Assistance [] Digital Equity Assistance [] Dental Health Assistance [] Education Assistance [] Employment Assistance [] Financial Strain Relief Assistance [] Food Insecurity Assistance [x] Healthcare Coverage Assistance [] Housing Stability Assistance [] IP Violence Relief Assistance [] Legal Assistance [] Physical Activity Assistance [] Social Connection Assistance [] Stress Relief Assistance [] Substance Abuse Assistance [] Transportation Assistance [] Utility Assistance [x] Other: [insert comment here] Patient does have a PCP, CHW updated the patient chart. Next Steps: GIORGIO Perez CHW talked to patient regarding not having a primary care physician. Patient expressed that she hasan upcoming appointment with a new physician from named Dr. Marlee Fitzpatrick and [place] insurance. CHW updated the patient chart with the physician name added. Patient expressed appreciation. Responsible Staff GIORGIO Perez Department [facility] ED Targets GIORGIO Perez 01/01/241553 [facility]10-09-2024 Emergency department Note* GIORGIO Perez - 01/01/2024 3:45 PM EDT Community Resource Name:No primary care physician Phone Number: Staff Member: Tracee Maurice Discussed the following topics on behalf of the patient: [] Behavioral Health Assistance [] Case Management [] Model [employer] Assistance [] Digital Equity Assistance [] Dental Health Assistance [] Education Assistance [] Employment Assistance [] Financial Strain Relief Assistance [] Food Insecurity Assistance [x] Healthcare Coverage Assistance [] Housing Stability Assistance [] IP Violence Relief Assistance [] Legal Assistance [] Physical Activity Assistance [] Social Connection Assistance [] Stress Relief Assistance [] Substance Abuse Assistance [] Transportation Assistance [] Utility Assistance [x] Other: [insert comment here] Patient does have a PCP, CHW updated the patient chart. Next Steps: GIORGIO Perez CHW talked to patient regarding not having a primary care physician. Patient expressed that she hasan upcoming appointment with a new physician from named Dr. Marlee Fitzpatrick and [employer] insurance. CHW updated the patient chart with the physician name added. Patient expressed appreciation. Responsible Staff GIORGIO Perez Department [facility] ED Targets GIORGIO Perez 01/01/241553 * KASH Kay - 01/01/2024 12:11 PM EDT Chronic Lower back pain and is flaring up today [facility] Work Phone: 1([phone]) 714-731810-09-2024 Emergency department Triage note* KASH Kay - 01/01/2024 12:11 PM EDT Chronic Lower back pain and is flaring up today [facility] Work Phone: 1([phone]) 771-655510-07-2024 Emergency department Note* Francisco J Daley PA-C - 12/30/2023 6:49 PM EDT Images from the original note were not included. HPI Chief Complaint Patient presents with Back Pain I have chronic back pain, I can't get it to ease up today 48-year-old female with a history of chronic back pain presents to the emergency room with chief complaint of acute flareup of her back pain. She denies any falls or injuries, denies any bladder bowel dysfunction or saddle paresthesias. Patient states this is a chronic issue and she is scheduled tosee pain management on Saturday. She is status post thoracic laminectomy as well as spinal cord implant. Denies any fevers, chills urinary symptoms History provided by: Patient and medical records Patient History Past Medical History: Diagnosis Date Anxiety Arthritis Bipolar disorder Chronic pain disorder Depression HCV (hepatitis C virus) 2013 treated and resolved Herniated lumbar intervertebral disc Liver disease stage 3 - stable Neuropathic pain Plan: Thoracic Laminectomy for Spinal Cord Stimulator Leads; Generator Implant 11/21/23 Obesity Vision loss Past Surgical History: Procedure Laterality Date ADENOIDECTOMY BUNIONECTOMY Bilateral CHOLECYSTECTOMY COLONOSCOPY DENTAL SURGERY Bilateral all teeth removed, dentures HYSTERECTOMY MYRINGOTOMY W/ TUBES Bilateral SPINAL CORD STIMULATOR IMPLANT 09/23/2023 Percutaneous Thoracic Spinal Cord Stimulator Leads and Generator Placement SPINAL CORD STIMULATOR REMOVAL 10/14/2023 SPINAL CORD STIMULATOR TRIAL W/ LAMINOTOMY 08/21/2023 Percutaneous Thoracic Spinal Cord Stimulator Trial TONSILLECTOMY Family History Problem Relation Name Age of Onset Lung disease Mother COPD Mother Lung disease Father Lung cancer Father Heart disease Father Social History Tobacco Use Smoking status: Every Day Current packs/day: 0.50 Average packs/day: 0.5 packs/day for 32.8 years (16.4 ttl pk-yrs) Types: Cigarettes Start date: 1991 Smokeless tobacco: Never Vaping Use Vaping status: Never Used Substance Use Topics Alcohol use: Never Drug use: Not Currently Comment: last use 2016- heroin Physical Exam ED Triage Vitals [12/30/231913] Temperature Heart Rate Respirations BP 36.1 C (97 F) 86 16 150/87 Pulse Ox Temp Source Heart Rate Source Patient Position 98 % Temporal Monitor Sitting BP Location FiO2 (%) Right arm -- Physical Exam Vitals and nursing note reviewed. Constitutional: General: She is not in acute distress. Appearance: Normal appearance. She is obese. She is not ill-appearing, toxic- appearing or diaphoretic. Cardiovascular: Rate and Rhythm: Normal rate and regular rhythm. Pulses: Normal pulses. Pulmonary: Effort: Pulmonary effort is normal. Breath sounds: Normal breath sounds. Abdominal: General: Bowel sounds are normal. Palpations: Abdomen is soft. Tenderness: There is no abdominal tenderness. Musculoskeletal: General: Tenderness present. Cervical back: Normal, normal range of motion and neck supple. Thoracic back: Normal. Lumbar back: Spasms present. Decreased range of motion. Back: Comments: Bilateral paraspinal muscle spasm Skin: General: Skin is warm and dry. Comments: Incision in the lower lumbar spine appears clean and dry no erythema no dehiscence no signs of infection Neurological: General: No focal deficit present. Mental Status: She is alert and oriented to person, place, and time. Mental status is at baseline. Psychiatric: Mood and Affect: Mood normal. Behavior: Behavior normal. Thought Content: Thought content normal. Judgment: Judgment normal. ED Course & MDM Diagnoses as of 12/30/231930 Acute exacerbation of chronic low back pain No data recorded [place] Coma Scale Score: 15 (12/30/231911 : Elke London RN) Medical Decision Making Temperature 36.1 heart rate 86, respirations 16, blood pressure 150/87, pulse ox is 98% on room air She has chronic back pain and she states this is an acute exacerbation. She denies any saddle paresthesias or any bladder or bowel dysfunction. I do not suspect cauda equina syndrome, she has no abdominal tenderness I do not suspect AAA, denies any fevers or chills, no history of IV drug use or alcohol abuse do not suspect epidural abscess. Patient was medicated with Percocet 5-325 mg p.o., Flexeril 5 mg p.o. Decadron 10 mg p.o. and a topical lidocaine patch. She was discharged home with prescription for Robaxin, naproxen, lidocaine patches and 7 tablets of Percocet. She will follow-up with her pain management doctor on Saturday. She was advised to return with any concerns or worsening of symptoms all questions answered prior to discharge Procedure Procedures Francisco J Daley PA-C 12/30/231943 documented in this [facility] Work Phone: 1(296) 854-193910-07-2024 Physician Emergency department Note* Francisco J Daley PA-C - 12/30/2023 6:49 PM EDT Images from the original note were not included. HPI Chief Complaint Patient presents with Back Pain I have chronic back pain, I can't get it to ease up today 48-year-old female with a history of chronic back pain presents to the emergency room with chief complaint of acute flareup of her back pain. She denies any falls or injuries, denies any bladder bowel dysfunction or saddle paresthesias. Patient states this is a chronic issue and she is scheduled tosee pain management on Saturday. She is status post thoracic laminectomy as well as spinal cord implant. Denies any fevers, chills urinary symptoms History provided by: Patient and medical records Patient History Past Medical History: Diagnosis Date Anxiety Arthritis Bipolar disorder Chronic pain disorder Depression HCV (hepatitis C virus) 2013 treated and resolved Herniated lumbar intervertebral disc Liver disease stage 3 - stable Neuropathic pain Plan: Thoracic Laminectomy for Spinal Cord Stimulator Leads; Generator Implant 11/21/23 Obesity Vision loss Past Surgical History: Procedure Laterality Date ADENOIDECTOMY BUNIONECTOMY Bilateral CHOLECYSTECTOMY COLONOSCOPY DENTAL SURGERY Bilateral all teeth removed, dentures HYSTERECTOMY MYRINGOTOMY W/ TUBES Bilateral SPINAL CORD STIMULATOR IMPLANT 09/23/2023 Percutaneous Thoracic Spinal Cord Stimulator Leads and Generator Placement SPINAL CORD STIMULATOR REMOVAL 10/14/2023 SPINAL CORD STIMULATOR TRIAL W/ LAMINOTOMY 08/21/2023 Percutaneous Thoracic Spinal Cord Stimulator Trial TONSILLECTOMY Family History Problem Relation Name Age of Onset Lung disease Mother COPD Mother Lung disease Father Lung cancer Father Heart disease Father Social History Tobacco Use Smoking status: Every Day Current packs/day: 0.50 Average packs/day: 0.5 packs/day for 32.8 years (16.4 ttl pk-yrs) Types: Cigarettes Start date: 1991 Smokeless tobacco: Never Vaping Use Vaping status: Never Used Substance Use Topics Alcohol use: Never Drug use: Not Currently Comment: last use 2016- heroin Physical Exam ED Triage Vitals [12/30/231913] Temperature Heart Rate Respirations BP 36.1 C (97 F) 86 16 150/87 Pulse Ox Temp Source Heart Rate Source Patient Position 98 % Temporal Monitor Sitting BP Location FiO2 (%) Right arm -- Physical Exam Vitals and nursing note reviewed. Constitutional: General: She is not in acute distress. Appearance: Normal appearance. She is obese. She is not ill-appearing, toxic- appearing or diaphoretic. Cardiovascular: Rate and Rhythm: Normal rate and regular rhythm. Pulses: Normal pulses. Pulmonary: Effort: Pulmonary effort is normal. Breath sounds: Normal breath sounds. Abdominal: General: Bowel sounds are normal. Palpations: Abdomen is soft. Tenderness: There is no abdominal tenderness. Musculoskeletal: General: Tenderness present. Cervical back: Normal, normal range of motion and neck supple. Thoracic back: Normal. Lumbar back: Spasms present. Decreased range of motion. Back: Comments: Bilateral paraspinal muscle spasm Skin: General: Skin is warm and dry. Comments: Incision in the lower lumbar spine appears clean and dry no erythema no dehiscence no signs of infection Neurological: General: No focal deficit present. Mental Status: She is alert and oriented to person, place, and time. Mental status is at baseline. Psychiatric: Mood and Affect: Mood normal. Behavior: Behavior normal. Thought Content: Thought content normal. Judgment: Judgment normal. ED Course & MDM Diagnoses as of 12/30/231930 Acute exacerbation of chronic low back pain No data recorded [place] Coma Scale Score: 15 (10/07/24 1912 : Elke London RN) Medical Decision Making Temperature 36.1 heart rate 86, respirations 16, blood pressure 150/87, pulse ox is 98% on room air She has chronic back pain and she states this is an acute exacerbation. She denies any saddle paresthesias or any bladder or bowel dysfunction. I do not suspect cauda equina syndrome, she has no abdominal tenderness I do not suspect AAA, denies any fevers or chills, no history of IV drug use or alcohol abuse do not suspect epidural abscess. Patient was medicated with Percocet 5-325 mg p.o., Flexeril 5 mg p.o. Decadron 10 mg p.o. and a topical lidocaine patch. She was discharged home with prescription for Robaxin, naproxen, lidocaine patches and 7 tablets of Percocet. She will follow-up with her pain management doctor on Saturday. She was advised to return with any concerns or worsening of symptoms all questions answered prior to discharge Procedure Procedures Francisco J Daley PA-C 12/30/231943 [facility] Work Phone: 1([phone]) 631-723910-04-2024 History of Present illness Narrative* Elke Adams MD - 12/27/2023 2:00 PM EDT [facility] Neurosurgery Diagnosis Jerad Collins was seen today for fuv. Diagnoses and all orders for this visit: Neuropathic pain Dehiscence of wound of skin, subsequent encounter Status post insertion of spinal cord stimulator Patient Discussion/Summary 1) Today we discussed that your incision appears to be nearly healed. 2) As such, I think we can safely proceed forward with the thoracic laminotomy to reimplant your device. 3) Prior to surgery, I would like you to see your Infectious Disease doctor once more to see if they recommend any perioperative course of antibiotics given your history. Provider Impressions 48 y.o. female with chronic b/l LBP, as well as neuropathic LE pain, R>L, primarily in the anterior thighs and occas down to the feet; s/p successful SCS trial w/ [facility] on 08/21/23, and subsequentperc thoracic SCS placement w/ [facility] on 09/23/23. Patient initially did well postop, with great relief of symptoms. However, shortly after she presented with severe back pain and erythema of her lumbar incision, concerning for infx, and ultimately wished to have the system removed, rather than treatwith abx and try to salve the device. As such, she underwent wound washout and removal of SCS leadsand generator on 10/13; intraop, it was unclear if there was a hematoma causing pressure under the incision or infx (wound cultures negative), and patient was discharged on a course of oral abx. During her postop visit on 10/24, we had discussed proceeding with thoracic lami for reimplant of her system with the generator on the opposite side. However, patient presented back to the ED on 10/29 for severe incisional pain; lumbar MRI showed underlying fluid collection; however, there was low concern for infx until she again presented back on 11/07 with discharge from her lumbar incision. Repeat imaging showed resolving fluid, pt was managed conservatively with abx and observation and ultimately had wound vac placed, which is now off and wound feels good to pt and appears to be nearly healed. As such, we are good to proceed forward with the thoracic lami for scs implant. History of Present Illness Chief Complaint: Chief Complaint Patient presents with FUV HPI: Jerad Tracy is a 48 y.o. female with chronic b/l LBP, as well as neuropathic LE pain, R>L,primarily in the anterior thighs and occas down to the feet; s/p successful SCS trial w/ [place] on 08/21/23, and subsequent [facility] thoracic SCS placement w/ [place] on 09/23/23. Patient initially did well postop, with great relief of symptoms. However, shortly after she presented with severe back pain and erythema of her lumbar incision, concerning for infx, and ultimately wished to have the system removed, rather than treat with abx and try to salve the device. As such, she underwent wound washout and removal of SCS leads and generator on 10/13; intraop, it was unclear if there was a hematoma causing pressure under the incision or infx (wound cultures negative), and patient was discharged on a course of oral abx. During her postop visit on 10/24, we had discussed proceeding with thoracic lami forreimplant of her system with the generator on the opposite side. However, patient presented back tothe ED on 10/29 for severe incisional pain; lumbar MRI showed underlying fluid collection; however, there was low concern for infx until she again presented back on 11/07 with purulent discharge from her lumbar incision. She was admitted for wound care and given oral abx through 11/25, per ID recommendations. During follow up visit, patient reported 1-2 days of again increased pain and pressure at her lumbar incision, with slight blood-tinged drainage, and was referred to the ER for wound care and repeat imaging; lumbar MRI showed improving subcutaneous seroma, and a Prevena dressing was applied. During our most recent OV on 12/12, patient had been back to the ER several times for disconnection and replacement of her wound vac. As such, her wound vac was changed with the wound care nurse, and we planned for patient to follow up with the wound care nurse in 1 week, and with me in 2 weeks to reassess her incision. In the interim, patient presented to the ED on 12/17 with reports of new onset b/l LE numbness and tingling with 2 episodes of incontinence; MRI C/T/L was obtained to rule out cauda equina or other underlying cause, which was without notable cord compression and showed continued interval improvement in fluid collection, and patient was discharged home stable. Patient presents today for follow up wound check. Pt ready to move forward with thoracic lami; states that her lumbar incision feels good and finallyseems healed. ROS: As noted in HPI. Previous History Past Medical History: Diagnosis Date Anxiety Arthritis Bipolar disorder Chronic pain disorder Depression HCV (hepatitis C virus) 2013 treated and resolved Herniated lumbar intervertebral disc Liver disease stage 3 - stable Neuropathic pain Plan: Thoracic Laminectomy for Spinal Cord Stimulator Leads; Generator Implant 11/21/23 Obesity Vision loss Past Surgical History: Procedure Laterality Date ADENOIDECTOMY BUNIONECTOMY Bilateral CHOLECYSTECTOMY COLONOSCOPY DENTAL SURGERY Bilateral all teeth removed, dentures HYSTERECTOMY MYRINGOTOMY W/ TUBES Bilateral SPINAL CORD STIMULATOR IMPLANT 09/23/2023 Percutaneous Thoracic Spinal Cord Stimulator Leads and Generator Placement SPINAL CORD STIMULATOR REMOVAL 10/14/2023 SPINAL CORD STIMULATOR TRIAL W/ LAMINOTOMY 08/21/2023 Percutaneous Thoracic Spinal Cord Stimulator Trial TONSILLECTOMY Social History Tobacco Use Smoking status: Every Day Current packs/day: 0.50 Average packs/day: 0.5 packs/day for 32.8 years (16.4 ttl pk-yrs) Types: Cigarettes Start date: 1991 Smokeless tobacco: Never Vaping Use Vaping status: Never Used Substance Use Topics Alcohol use: Never Drug use: Not Currently Comment: last use 2016- heroin Family History Problem Relation Name Age of Onset Lung disease Mother COPD Mother Lung disease Father Lung cancer Father Heart disease Father Allergies Allergen Reactions Penicillins Hives Reported hives as a child. Prescribed cephalexin September 2023 and reported itching only (no rash/hives). Also reports having taken amoxicillin in the past and tolerated. Gabapentin Headache Tylenol [Acetaminophen] Unknown History of stage III liver fibrosis Nabumetone Nausea/vomiting and Rash Current Outpatient Medications Medication Instructions acetaminophen (TYLENOL) 650 mg, oral, Every 6 hours PRN diphenhydrAMINE (SOMINEX) 25 mg, oral, Every 6 hours FLUoxetine (PROZAC) 60 mg, oral, Daily hydrOXYzine HCL (ATARAX) 25 mg, oral, 3 times daily PRN lidocaine (Lidoderm) 5 % patch 1 patch, transdermal, Daily, Remove & discard patch within 12 hours or as directed by MD. methocarbamol (ROBAXIN) 500 mg, oral, 3 times daily naloxone (NARCAN) 4 mg, nasal, As needed, May repeat every 2-3 minutes if needed, alternating nostrils, until medical assistance becomes available. naproxen (NAPROSYN) 500 mg, oral, 2 times daily (morning and late afternoon) omeprazole (PRILOSEC) 40 mg, oral, Daily, Do not crush or chew. ondansetron ODT (ZOFRAN-ODT) 4 mg, oral, Every 8 hours PRN Vitals BP 114/68 Pulse 91 Resp 16 Ht 1.6 m (5' 3 ) Wt 116 kg (255 lb) BMI 45.17 kg/m Physical Exam Lumbar incision is nearly healed; very tiny, superficial scab on rostral portion of incision, but otherwise non tender and c/d/i Results documented in this [facility] Work Phone: 1(154) 745-156010-04-2024 Hospital Discharge instructions Patient Education 12/26/2023 22:27:28 Acute Back Pain, Adult Acute Back Pain, [...] home: Managing pain, stiffness, and swelling Take dpxo-kcf-qjwhvec and prescription medicines only as told by [...] each day. Do not sit, drive, or hvac design engineer one place for more than 30 minutes [...] put less stress on your back. Take lznv-ccs-nivlftt and prescription medicines only as told by your health care provider, and apply heat or ice as told. This information is not intended to replace advice given to you by your health care provider. Make sure you discuss any questions you have with your health care provider. Document Revised: 06/02/2021 Document Reviewed: 06/02/2021 [employer] Patient Education 2023 [employer]quisition. Follow Up Care 12/26/2023 18:04:50 With:Cheyanne Rosas Address: [facility] [place] [phone] (1) When:12/29/2023 [facility] 10-03-2024 NoteED Patient Education Note Orthopedics Acute Back Pain, Adult Acute back pain is sudden and usually short-lived. It is often caused by an injury to the muscles and tissues in the back. The injury may result from: ? A muscle, tendon, or ligament getting overstretched or torn. Ligaments are tissues that connect bones to each other. Lifting something improperly can cause a back strain. ? Wear and tear (degeneration) of the spinal disks. Spinal disks are circular tissue that provide cushioning between the bones of the spine (vertebrae). ? Twisting motions, such as while playing sports or doing yard work. ? A hit to the back. ? Arthritis. You may have a physical exam, lab tests, and imaging tests to find the cause of your pain. Acute back pain usually goes away with rest and home care. Follow these instructions at home: Managing pain, stiffness, and swelling ? Take cqse-lhp-uhyznmj and prescription medicines only as told by your health care provider. Treatment may include medicines for pain and inflammation that are taken by mouth or applied to the skin,or muscle relaxants. ? Your health care provider may recommend applying ice during the first 24?48 hours after your painstarts. To do this: ? Put ice in a plastic bag. ? Place a towel between your skin and the bag. ? Leave the ice on for 20 minutes, 2?3 times a day. ? Remove the ice if your skin turns bright red. This is very important. If you cannot feel pain, heat, or cold, you have a greater risk of damage to the area. ? If directed, apply heat to the affected area as often as told by your health care provider. Use the heat source that your health care provider recommends, such as a moist heat pack or a heating pad. ? Place a towel between your skin and the heat source. ? Leave the heat on for 20?30 minutes. ? Remove the heat if your skin turns bright red. This is especially important if you are unable to feel pain, heat, or cold. You have a greater risk of getting burned. Activity ? Do not stay in bed. Staying in bed for more than 1?2 days can delay your recovery. ? Sit up and stand up straight. Avoid leaning forward when you sit or hunching over when you stand. ? If you work at a desk, sit close to it so you do not need to lean over. Keep your chin tucked in.Keep your neck drawn back, and keep your elbows bent at a 90-degree angle (right angle). ? Sit high and close to the steering wheel when you drive. Add lower back (lumbar) support to your car seat, if needed. ? Take short walks on even surfaces as soon as you are able. Try to increase the length of time youwalk each day. ? Do not sit, drive, or hvac design engineer one place for more than 30 minutes at a time. Sitting or standing for long periods of time can put stress on your back. ? Do not drive or use heavy machinery while taking prescription pain medicine. ? Use proper lifting techniques. When you bend and lift, use positions that put less stress on yourback: ? Bend your knees. ? Keep the load close to your body. ? Avoid twisting. ? Exercise regularly as told by your health care provider. Exercising helps your back heal faster and helps prevent back injuries by keeping muscles strong and flexible. ? Work with a physical therapist to make a safe exercise program, as recommended by your health care provider. Do any exercises as told by your physical therapist. Lifestyle ? Maintain a healthy weight. Extra weight puts stress on your back and makes it difficult to have good posture. ? Avoid activities or situations that make you feel anxious or stressed. Stress and anxiety increase muscle tension and can make back pain worse. Learn ways to manage anxiety and stress, such as through exercise. General instructions ? Sleep on a firm mattress in a comfortable position. Try lying on your side with your knees slightly bent. If you lie on your back, put a pillow under your knees. ? Keep your head and neck in a straight line with your spine (neutral position) when using electronic equipment like smartphones or pads. To do this: ? Raise your smartphone or pad to look at it instead of bending your head or neck to look down. ? Put the smartphone or pad at the level of your face while looking at the screen. ? Follow your treatment plan as told by your health care provider. This may include: ? Cognitive or behavioral therapy. ? Acupuncture or massage therapy. ? Meditation or yoga. Contact a health care provider if: ? You have pain that is not relieved with rest or medicine. ? You have increasing pain going down into your legs or buttocks. ? Your pain does not improve after 2 weeks. ? You have pain at night. ? You lose weight without trying. ? You have a fever or chills. ? You develop nausea or vomiting. ? You develop abdominal pain. Get help right away if: ? You develop new bowel or bladder control problems. ? You have unusual weakness or numbness in your arms or legs. ? (more content not included)...[facility]10-03-2024 Evaluation + Plan noteExtracted from: Title:ED Note Author:Gumaro MILES, Manuel Celis te:12/26/23 Low back pain (M54.50: Low b ack pain, unspecified) Lumbar strain (S39.012A: Strain of muscle, fascia and tendon of lower back, initial encounter) S/P lumbar spine operation (Z98.890: Other specified postprocedural states) Orders: ketorolac, 30 mg = 1 mL, Injection, IntraMuscular, Once, Stop date 12/26/23 22:08:00 EDT, STAT, Start date 12/26/23 22:08:00 EDT, 12/26/23 22:08:00 EDT oxycodone, 5 mg = 1 tab(s), Tab, Oral, Once, Stop date 12/26/23 22:08:00 EDT, STAT, Start date 12/26/23 22:08:00 EDT, 12/26/23 22:08:00 EDT oxycodone, 5 mg = 1 cap(s), Oral, q6hr, PRN for pain, X 3 day(s), # 10 cap(s), Refills(s) 0, Pharmacy: [id number], 160, cm, 12/26/23 18:17:00 EDT, Height/Length Dosing, 114.8, kg, 12/26/23 18:17:00 EDT, Weight Dosing tizanidine, 2 mg = 1 tab(s), Oral, q8hr, X 7 day(s), # 21 tab(s), Refills(s) 0, Pharmacy: [id number], 160, cm, 12/26/23 18:17:00 EDT, Height/Length Dosing, 114.8, kg, 12/26/23 18:17:00 EDT, Weight Dosing tizanidine, 2 mg = 0.5 tab(s), Tab, Oral, Once, Stop date 12/26/23 22:08:00 EDT, STAT, Start date 12/26/23 22:08:00 EDT, 12/26/23 22:08:00 EDT Future Scheduled Tests Laboratory* TSH With T4fr Reflex 07/17/23 * Urinalysis with Micro 07/17/23 * Lipid Panel 07/17/23 * Drug Screen Urine 07/17/23 Radiology* MA Mamm Screen w/CAD if perf and 3D Kenan 07/17/23 [facility] 10-03-2024 NoteEducation Materials Orthopedics Lumbar Sprain A lumbar sprain, which is sometimes called a low-back sprain, is a stretch or tear in the ligamentsin the lower back (lumbar spine). Ligaments are the bands of tissue that connect bones to each other. This type of injury occurs when you stretch the ligaments beyond their limits. Lumbar sprains can range from mild to severe. Mild sprains may involve stretching a ligament without tearing it. These may heal in 1?2 weeks. More severe sprains involve tearing of the ligament. These will cause more pain and may take 6?8 weeks to heal. What are the causes? This condition may be caused by: ? Trauma, such as a fall or a hit to the body. ? Twisting or overstretching the back. This may result from doing activities that take a lot of energy, such as lifting heavy objects. What increases the risk? A lumbar sprain is more common in: ? Athletes. ? People with obesity. ? People who do repeated lifting, bending, or other movements that involve their back. What are the signs or symptoms? Symptoms of this condition may include: ? Sharp or dull pain in the lower back that does not go away. The pain may spread to the buttocks. ? Stiffness or limited range of motion. ? Sudden muscle tightening (spasms). How is this diagnosed? This condition may be diagnosed based on: ? Your symptoms. ? Your medical history. ? A physical exam. ? Imaging tests, such as: ? X-rays. ? MRI. How is this treated? Treatment for this condition may include: ? Resting the injured area. ? Applying heat and cold to the affected area. ? Hbck-ssm-esdposa medicines for pain and inflammation, such as NSAIDs. ? Prescription medicine for pain or to relax the muscles. These may be needed for a short time. ? Physical therapy exercises to improve movement and strength. Follow these instructions at home: Managing pain, stiffness, and swelling ? If told, put ice on the injured area during the first 24 hours after your injury. ? Put ice in a plastic bag. ? Place a towel between your skin and the bag. ? Leave the ice on for 20 minutes, 2?3 times a day. ? If told, apply heat to the affected area as often as told by your health care provider. Use the heat source that your health care provider recommends, such as a moist heat pack or a heating pad. ? Place a towel between your skin and the heat source. ? Leave the heat on for 20?30 minutes. ? If your skin turns bright red, remove the ice or heat right away to prevent skin damage. The riskof damage is higher if you cannot feel pain, heat, or cold. Activity ? Rest and return to your normal activities as told by your health care provider. Ask your health care provider what activities are safe for you. ? Do exercises as told by your health care provider. General instructions ? Take kppl-qjr-xhyumwb and prescription medicines only as told by your health care provider. ? Ask your health care provider if the medicine prescribed to you: ? Requires you to avoid driving or using machinery. ? Can cause constipation. You may need to take these actions to prevent or treat constipation: ? Drink enough fluid to keep your urine pale yellow. ? Take oned-fzs-pysevvu or prescription medicines. ? Eat foods that are high in fiber, such as beans, whole grains, and fresh fruits and vegetables. ? Limit foods that are high in fat and processed sugars, such as fried or sweet foods. ? Do not use any products that contain nicotine or tobacco. These products include cigarettes, chewing tobacco, and vaping devices, such as e-cigarettes. If you need help quitting, ask your health care provider. How is this prevented? To prevent a future low-back injury: ? Always warm up properly before physical activity or sports. ? Cool down and stretch after being active. ? Use correct form when playing sports and lifting heavy objects. Bend your knees before you lift heavy objects. ? Use good posture when sitting and standing. ? Stay physically fit and keep a healthy weight. ? Do at least 150 minutes of moderate-intensity exercise each week, such as brisk walking or water aerobics. ? Do strength exercises at least 2 times each week. Contact a health care provider if: ? Your back pain does not improve after several weeks of treatment. ? Your symptoms get worse. ? You have a fever. Get help right away if: ? Your back pain is severe. ? You are unable to stand or walk. ? You develop pain in your legs. ? You have weakness in your buttocks or legs. ? You have trouble controlling when you urinate or when you have a bowel movement. ? You have frequent, painful, or bloody urination. This information is not intended to replace advice given to you by your health care provider. Make sure you discuss any questions you have with your health care provider. Document Revised (more content not included)...[id number] Discharge instructions Patient Education 12/24/2023 17:00:04 Abdominal Pain, Adult Abdominal Pain, Adult Pain in the abdomen (abdominal pain) can be caused by many things. In most cases, it gets better with no treatment or by being treated at home. But in some cases, it can be serious. Your health care provider will ask questions about your medical history and do a physical exam to try to figure out what is causing your pain. Follow these instructions at home: Medicines Take hdsw-pdh-jhsbzqa and prescription medicines only as told by your provider. Do not take medicines that help you poop (laxatives) unless told by your provider. General instructions Watch your condition for any changes. Drink enough fluid to keep your pee (urine) pale yellow. Contact a health care provider if: Your pain changes, gets worse, or lasts longer than expected. You have severe cramping or bloating in your abdomen, or you vomit. Your pain gets worse with meals, after eating, or with certain foods. You are constipated or have diarrhea for more than 2 3 days. You are not hungry, or you lose weight without trying. You have signs of dehydration. These may include: ?Dark pee, very little pee, or no pee. ?Cracked lips or dry mouth. ?Sleepiness or weakness. You have pain when you pee (urinate) or poop. Your abdominal pain wakes you up at night. You have blood in your pee. You have a fever. Get help right away if: You cannot stop vomiting. Your pain is only in one part of the abdomen. Pain on the right side could be caused by appendicitis. You have bloody or black poop (stool), or poop that looks like tar. You [...] provider. Document Revised: 12/26/2022 Document Reviewed: 12/26/2022 Elsevier Patient Education 2023 [employer] Acquisition. Follow Up Care 12/24/2023 14:06:01 With:Cheyanne Rosas Address: [address], [address] [place] [id number]- Business (1) When:12/27/2023 16:49:49 Comments:Make sure to follow-up with your liver doctor as discussed. Return to the emergency room if your pain gets worse, vomiting, fever or any new symptoms. [facility] 10-01-2024 NoteED Patient Education Note Gastroenterology Abdominal Pain, Adult Pain in the abdomen (abdominal pain) can be caused by many things. In most cases, it gets better with no treatment or by being treated at home. But in some cases, it can be serious. Your health care provider will ask questions about your medical history and do a physical exam to try to figure out what is causing your pain. Follow these instructions at home: Medicines ? Take mkkd-hog-eywmapk and prescription medicines only as told by your provider. ? Do not take medicines that help you poop (laxatives) unless told by your provider. General instructions ? Watch your condition for any changes. ? Drink enough fluid to keep your pee (urine) pale yellow. Contact a health care provider if: ? Your pain changes, gets worse, or lasts longer than expected. ? You have severe cramping or bloating in your abdomen, or you vomit. ? Your pain gets worse with meals, after eating, or with certain foods. ? You are constipated or have diarrhea for more than 2?3 days. ? You are not hungry, or you lose weight without trying. ? You have signs of dehydration. These may include: ? Dark pee, very little pee, or no pee. ? Cracked lips or dry mouth. ? Sleepiness or weakness. ? You have pain when you pee (urinate) or poop. ? Your abdominal pain wakes you up at night. ? You have blood in your pee. ? You have a fever. Get help right away if: ? You cannot stop vomiting. ? Your pain is only in one part of the abdomen. Pain on the right side could be caused by appendicitis. ? You have bloody or black poop (stool), or poop that looks like tar. ? You have trouble breathing. ? You have chest pain. These symptoms may [...] provider. Document Revised: 12/26/2022 Document Reviewed: 12/26/2022 Elsevier Patient Education ? 2023 PFI Acquisition.[facility] 12-24-2023 Evaluation + Plan noteExtracted from: Title:ED Note Author:Annette Watkins, Balbina Celis te:12/24/23 1. Right upper quadrant abdo sung pain (R10.11: Right upper quadrant pain) Orders: dicyclomine, 20 mg = 2 cap(s), Oral, QID, # 20 cap(s), Refills(s) 0, Pharmacy: [id number], 160, cm, 12/24/23 14:30:00 EDT, Height/Length Dosing, 115.2, kg, 12/24/23 14:30:00 EDT, Weight Dosing dicyclomine, 20 mg = 2 mL, Injection, IntraMuscular, Once, Stop date 12/24/23 15:49:00 EDT, STAT, Start date 12/24/23 15:49:00 EDT, 12/24/23 15:49:00 EDT Basic Metabolic Panel CBC w/ Auto Diff eGFR Extra Blue Tube Hepatic Function Panel Lipase Level UA with Cult Rflx Future Scheduled Tests Laboratory* TSH With T4fr Reflex 07/17/23 * Urinalysis with Micro 07/17/23 * Lipid Panel 07/17/23 * Drug Screen Urine 07/17/23 Radiology* MA Mamm Screen w/CAD if perf and 3D Kenan 07/17/23 [facility] 10-01-2024 Evaluation + Plan note* Assessment & Plan Note - Chidi Joseph MD - 12/24/2023 12:59 PM EDTAssociated Problem(s): Hepatic fibrosis, advanced fibrosis This patient has HCV with advanced fibrosis diet and exercise were encouraged for obesity we will repeat fibroscan annually We will repeat MELD/US/AFP every 6 months we will see this patient in 6 months Dietary and lifestyle interventions were recommended as follows: Perform vigorous physical activity like brisk walking or structured gym exercises 3 times a week for 30 minutes or more frequently Avoid foods which contain complex sugars like wheat, rice, potatoes and corn. Avoid eating foods that are rich in sugar in excess such as high sugar content fruits (pineapple, alessandra...) and desserts, cakes and pies Eat more good foods that are rich in good fat such as cold water fish (salmon, swordfish...) as well as avocados and peanut butter in moderation Snack on nuts that are high in protein and good oils such as walnuts, almonds. Eat a mediteranean diet which is rich in grilled lean meats, high protein beans and legumes and olive oil Exercise for 30 minutes or more at least 3 times a week focus on exercises that build muscle mass like working with weights and lifting. Try swimming or water aerobics if you have access to a pool Aim to lose 7-10% of your total body weight over 6-12 months [facility] Work Phone: 1(727) 351-256610-01-2024 Miscellaneous Notes* Assessment & Plan Note - Chidi Joseph MD - 12/24/2023 12:59 PM EDTAssociated Problem(s): Hepatic fibrosis, advanced fibrosis This patient has HCV with advanced fibrosis diet and exercise were encouraged for obesity we will repeat fibroscan annually We will repeat MELD/US/AFP every 6 months we will see this patient in 6 months Dietary and lifestyle interventions were recommended as follows: Perform vigorous physical activity like brisk walking or structured gym exercises 3 times a week for 30 minutes or more frequently Avoid foods which contain complex sugars like wheat, rice, potatoes and corn. Avoid eating foods that are rich in sugar in excess such as high sugar content fruits (pineapple, alessandra...) and desserts, cakes and pies Eat more good foods that are rich in good fat such as cold water fish (salmon, swordfish...) as well as avocados and peanut butter in moderation Snack on nuts that are high in protein and good oils such as walnuts, almonds. Eat a mediteranean diet which is rich in grilled lean meats, high protein beans and legumes and olive oil Exercise for 30 minutes or more at least 3 times a week focus on exercises that build muscle mass like working with weights and lifting. Try swimming or water aerobics if you have access to a pool Aim to lose 7-10% of your total body weight over 6-12 months documented in this [facility] Work Phone: 1([phone]) 272-663610-01-2024 History of Present illness Narrative* Chidi Joseph MD - 12/24/2023 10:40 AM EDT Subjective She achieved SVR12 on DAA and feels well. She denies fluid overload or cognitive impairment. Her fibroscan had shown F3 fibrosis. Review of Systems Constitutional: Negative for chills, fever and unexpected weight change. HENT: Negative for congestion and trouble swallowing. Respiratory: Negative for cough, shortness of breath and wheezing. Cardiovascular: Negative for chest pain. Gastrointestinal: Negative for abdominal distention, abdominal pain, constipation, diarrhea, nauseaand vomiting. Genitourinary: Negative for difficulty urinating. Musculoskeletal: Negative for arthralgias and joint swelling. Skin: Negative for color change. Neurological: Negative for dizziness, speech difficulty, light-headedness and headaches. Psychiatric/Behavioral: Negative for confusion and sleep disturbance. Physical Exam Constitutional: General: She is awake. Appearance: Normal appearance. HENT: Head: Normocephalic and atraumatic. Nose: Nose normal. Mouth/Throat: Mouth: Mucous membranes are moist. Eyes: Pupils: Pupils are equal, round, and reactive to light. Neck: Thyroid: No thyroid mass. Trachea: Phonation normal. Cardiovascular: Rate and Rhythm: Normal rate and regular rhythm. Heart sounds: Normal heart sounds. No murmur heard. No gallop. Pulmonary: Effort: Pulmonary effort is normal. No respiratory distress. Breath sounds: Normal air entry. No decreased breath sounds, wheezing, rhonchi or rales. Abdominal: General: Bowel sounds are normal. There is no distension. Palpations: Abdomen is soft. Tenderness: There is no abdominal tenderness. Musculoskeletal: Cervical back: Neck supple. Right lower leg: No edema. Left lower leg: No edema. Skin: General: Skin is warm. Capillary Refill: Capillary refill takes less than 2 seconds. Neurological: General: No focal deficit present. Mental Status: She is alert and oriented to person, place, and time. Mental status is at baseline. Cranial Nerves: Cranial nerves 2-12 are intact. Motor: Motor function is intact. Psychiatric: Attention and Perception: Attention and perception normal. Mood and Affect: Mood normal. Speech: Speech normal. Behavior: Behavior normal. LABS: Lab Results Component Value Date ALBUMIN 4.0 12/23/2023 BILITOT 0.2 12/23/2023 BILIDIR 0.1 12/23/2023 ALKPHOS 79 12/23/2023 ALT 19 12/23/2023 AST 20 12/23/2023 PROT 6.3 (L) 12/23/2023 [id number] 155 04/01/2023 AFP 4 12/23/2023 BEATRIZ Negative 04/01/2023 MITOAB Negative 04/01/2023 CERULOPLSM 30.7 04/01/2023 HEPATOT Reactive (A) 04/01/2023 ASMAB Negative 04/01/2023 HEPBSAB <3.1 04/01/2023 HEPBCAB Nonreactive 04/01/2023 HEPBSAG Nonreactive 04/01/2023 HEPCAB Reactive (A) 02/13/2023 INR 0.9 12/23/2023 FERRITIN 77 04/01/2023 IRON 119 04/01/2023 IRONSAT 26 04/01/2023 Lab Results Component Value Date UVTQ352 <10 04/01/2023 CJKH833 <10 04/01/2023 Lab Results Component Value Date NA 139 12/23/2023 CREATININE 0.83 12/23/2023 BILITOT 0.2 12/23/2023 INR 0.9 12/23/2023 Lab Results Component Value Date AFP 4 12/23/2023 Lab Results Component Value Date ALBUMIN 4.0 12/23/2023 BILITOT 0.2 12/23/2023 BILIDIR 0.1 12/23/2023 ALKPHOS 79 12/23/2023 ALT 19 12/23/2023 AST 20 12/23/2023 PROT 6.3 (L) 12/23/2023 Lab Results Component Value Date WBC 9.5 12/18/2023 HGB 14.0 12/18/2023 HCT 42.2 12/18/2023 MCV 91 12/18/2023 PLT 365 12/18/2023 Lab Results Component Value Date GLUCOSE 87 12/23/2023 CALCIUM 8.5 (L) 12/23/2023 NA 139 12/23/2023 K 4.6 12/23/2023 CO2 28 12/23/2023 CL 105 12/23/2023 BUN 10 12/23/2023 CREATININE 0.83 12/23/2023 Lab Results Component Value Date INR 0.9 12/23/2023 === 12/23/23 === US ABDOMEN LIMITED LIVER - Impression - The patient is status post cholecystectomy. Otherwise, grossly unremarkable right upper quadrant ultrasound. MACRO: None Signed by: Harshad Tran 12/24/2023 6:42 AM Dictation workstation: [id number] === 12/18/23 === MR THORACIC SPINE W AND WO CONTRAST - Impression - 1. Ongoing interval decrease in size of T2 hyperintense fluid collection in the cutaneous tissues of the lower lumbar spine compared to prior exam on 12/06/2023, now measuring up to 3 mm in size compared to 18 x 7 mm on previous imaging. No new fluid collections are present in the cutaneous tissues. Associated STIR hyperintense signal changes with enhancement in the adjacent cutaneous tissues are similar to prior exam. 2. Unchanged left subarticular/para foraminal disc herniation at the level of L4-L5 which effaces of the left subarticular recess and contributes to moderate left-sided neural foraminal narrowing with likely abutment/effacement of the exiting left L4 nerve. Additional level by level degenerative changes of the lumbar spine are described above, without evidence of the new spinal canal stenosis. 3. Multilevel degenerative changes of the cervical spine as detailed above, with eogt-tg-gorctjko narrowing present at the level of C6-C7 due to disc osteophyte complex and ligamentum flavum thickening. 4. Mild degenerative changes in the thoracic spine are similar in appearance to prior exam on 11/08/2023 without evidence of new high-grade stenosis.. I personally reviewed the images/study and I agree with the findings as stated by resident physician Dr. Rick Nevarez . This study was interpreted at [facility], [place], [place]. MACRO: None Signed by: Bernadette Tapia 12/19/2023 2:07 AM Dictation workstation: [id number] === 12/21/23 === CT LUMBAR SPINE WO IV CONTRAST - Impression - No acute fracture or traumatic subluxation of the lumbar spine. Lumbar spondylosis most pronounced at L4/L5. MACRO: None. Signed by: Tomás Hercules 12/21/2023 10:40 PM Dictation workstation: [id number] Hepatic fibrosis, advanced fibrosis This patient has HCV with advanced fibrosis diet and exercise were encouraged for obesity we will repeat fibroscan annually We will repeat MELD/US/AFP every 6 months we will see this patient in 6 months Dietary and lifestyle interventions were recommended as follows: Perform vigorous physical activity like brisk walking or structured gym exercises 3 times a week for 30 minutes or more frequently Avoid foods which contain complex sugars like wheat, rice, potatoes and corn. Avoid eating foods that are rich in sugar in excess such as high sugar content fruits (pineapple, alessandra...) and desserts, cakes and pies Eat more good foods that are rich in good fat such as cold water fish (salmon, swordfish...) as well as avocados and peanut butter in moderation Snack on nuts that are high in protein and good oils such as walnuts, almonds. Eat a mediteranean diet which is rich in grilled lean meats, high protein beans and legumes and olive oil Exercise for 30 minutes or more at least 3 times a week focus on exercises that build muscle mass like working with weights and lifting. Try swimming or water aerobics if you have access to a pool Aim to lose 7-10% of your total body weight over 6-12 months documented in this [facility] Work Phone: 1(775) 401-541510-01-2024 Instructions* Patient Instructions* Elke Haas RN - 12/24/2023 10:40 AM EDT If you have any questions or need assistance, please don't hesitate to contact us. Our offices are located at [facility]. Please use the numbers below when calling. Dr. Joseph: Office [phone] Hepatology Nurse Coordinator: Elke SEXTON [phone] [phone] (See below for department name when scheduling) PLAN OF CARE: TEST DUE [x] LABS Type: LIVER CANCER SCREENING: Patients with advanced fibrosis or cirrhosis are at increased risk for liver cancer. Successful treatment of liver cancer depends on early detection. You should have regular interval screening for liver cancer every 6 months. A blood test called Alpha-fetoprotein (AFP)and ultrasound of the liver is an important part of liver cancer screening to detect tumors. You should also expect to have a follow up appointment with your liver doctor every 6 months Due : June [x] IMAGING (Department Radiology) Type: US Due : June [x] FIBROSCAN (Department Gastro) Type: FIBROSCAN: Type of liver elastography. A special ultrasound that measures scarring (fibrosis)and fat (steatosis) in the liver. The Fibroscan is located at 3 locations: [facility], [facility]), [facility] PLEASE DO NOT EAT OR DRINK 3 HOURS BEFORE YOUR EXAM Due : Before next visit [x] FOLLOW UP (Department Gastro) Due : June [] Dr. Joseph Locations: MON: ANTHONY ([address]) 8:00 AM - 12:00 PM TUES: [place] ([address]) 8:00 AM - 3:40 PM documented in this [facility] Work Phone: 1(683) 931-960309-20-2024 Hospital Discharge instructions Patient Education 12/13/2023 14:15:46 Allergies, Adult, Odsh-eg-Gnlk Allergies, Adult An allergy is when your body reacts to something that bothers it (allergen). Allergies often affect the nose, eyes, skin, and stomach. They cannot spread from person to person.Allergies can start at any age. Sometimes, they [...] instructions at home: Medicines Take or apply lmkm-nau-pvcdomr and prescription medicines only as told by [...] provider. Document Revised: 11/21/2022 Document Reviewed: 11/21/2022 [employer] Patient Education 2023 PFI Acquisition. Follow Up Care 12/13/2023 13:35:05 With:Cheyanne Rosas Address: [address] [place] [address] [place] [address]- Business (1) When:12/16/2023 14:02:00 [facility] [id number] NoteED Note-Nursing Pt left prior to dc papers and [facility] NoteED Patient Education Note Immunology Allergies, Adult An allergy is when your body reacts to something that bothers it (allergen). Allergies often affect the nose, eyes, skin, and stomach. They cannot spread from person to person.Allergies can start at any age. Sometimes, they [...] at home: Medicines ? Take or apply zffh-vfr-sixmvmz and prescription medicines only as told by [...] provider. Document Revised: 11/21/2022 Document Reviewed: 11/21/2022 [employer] Patient Education ? 2023 PFI Acquisition.[facility] 12-05-2023 NoteED Patient Education Note Dermatology Wound Care, Adult [...] and water are not available, use hand regulator mechanic. ? Change your dressing as told by [...] by your health care provider. ? Take lbik-eya-faaxaxd and prescription medicines only as told by your health care provider. Eating and drinking ? Eat a diet that includes protein, vitamin A, vitamin C, and other nutrient- rich foods to help thewound heal. ? Foods rich in protein include [...] [place] Do not drive yourself to the (more content not included)...[facility]09-11-2024 Emergency department Note* Cheyanne Powers RN - 12/04/2023 11:32 PM EDT Patient discharged to home, alert and oriented, skin warm, dry and pink. Denies needs and or questions. Will follow-up as directed, patient encouraged to return for worsening or new symptoms or otherconcerns. [id number] Emergency department Note* Cheyanne Powers RN - 12/04/2023 11:32 PM EDT Patient discharged to home, alert and oriented, skin warm, dry and pink. Denies needs and or questions. Will follow-up as directed, patient encouraged to return for worsening or new symptoms or otherconcerns. * Ilya Carrillo RN - 12/04/2023 10:40 PM EDT Pt to CT * Ben Urbina MD - 12/04/2023 10:14 PM EDT I have seen Jerad Tracy with the [...] Her previous surgeries were done in the [place] area at the [facility]. Because of the severe pain she presentsto the emergency department today. Review of her [...] by: Ben Urbina MD, 12/04/2023 10:14 PM * Rebecca Gómez RN - 12/04/2023 9:53 PM EDT Patient arrives ambulatory to triage with c/o back pain. Patient states she had a stimulator removed a month ago, just completed a 10 hour car ride and thinks that aggravated her back. A&Ox4. * Nighat Bailey PA-C - 12/04/2023 9:53 PM EDT Images from the original note were not included. TRIAGE CHIEF COMPLAINT: Chief Complaint Patient presents with Back Pain HPI: Jerad [place] is a 48 year old female who presents to the emergency department with back pain. Patient reports tonight when she was in a car driving back home from [place] to [place]. Startedto have severe low back pain which prompted [...] with her spine surgeon Dr. Adams at [facility] this Saturday. Pain is 9/10. REVIEW [...] Resource Strain: Low Risk (11/17/2023) Received from [facility] Overall Financial Resource Strain (CARDIA) Difficulty of Paying Living Expenses: Not hard at all Food Insecurity: Patient Declined (10/11/2023) Received from [facility] Hunger Vital Sign Worried About Running Out of Food in the Last Year: Patient declined Ran Out of Food in the Last Year: Patient declined Transportation Needs: No Transportation Needs (11/17/2023) Received from [facility] PRAPARE - Transportation Lack of Transportation (Medical): No Lack of Transportation (Non-Medical): No Physical Activity: Patient Declined (10/11/2023) Received from [facility] Exercise Vital Sign Days of Exercise per Week: Patient declined Minutes of Exercise per Session: Patient declined Stress: Patient Declined (10/11/2023) Received from [facility] Occupational [facility] - Occupational Stress Questionnaire Feeling of Stress : Patient declined Social Connections: Patient Declined (10/11/2023) Received from [facility] Social Connection and Isolation Panel [NHANES] Frequency of Communication with Friends and Family: Patient declined Frequency of Social Gatherings with Friends and Family: Patient declined Attends Druze Services: Patient declined Active Member of Clubs or Organizations: Patient declined Attends Club or Organization Meetings: Patient declined Marital Status: Patient declined Intimate Partner Violence: Patient Declined (10/11/2023) Received from [facility] Humiliation, Afraid, Rape, and Kick questionnaire Fear of Current or Ex-Partner: Patient declined Emotionally Abused: Patient declined Physically Abused: Patient declined Sexually Abused: Patient declined Housing Stability: Low Risk (11/17/2023) Received from [facility] Housing Stability Vital Sign Unable to Pay [...] a day as needed for Pain, Disp: ,Rfl: diazePAM (VALIUM) 5 mg tablet, Take 1 [...] tablet 1,000 mg (1,000 mg Oral Given 12/04/234) ABNORMAL LABS: Labs Reviewed - No data to display IMAGING: CT SPINE LUMBAR WITH CONTRAST Final Result IMPRESSION: 1. Nonspecific posterior lumbar subcutaneous fat stranding without discrete fluid collection. 2. 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 3. Incidental bilateral adrenal nodules (indeterminate on the basis of this examination); consider dedicated adrenal imaging. Keke Beebe D.O.Workstation ID:[id number] ED COURSE / MEDICAL DECISION MAKING: Jerad Tracy is a 48 year old female who presents to the emergency department with back pain. Patient reports tonight when she was in a car driving back home from [place] to [place]. Started to have severe low back pain which prompted her ED visit. Patient reports in September she had pain stimulator in her back removed due to infection. Patient reports she was on antibiotics for 6 weeks and finished her treatment course on November 27. Patient denies any trauma falls or injury. She denies bowelor bladder retention or incontinence or saddle anesthesia. She has not been taking any medicine forrelief of her pain. Patient states she has a office appointment with her spine surgeon Dr. Adams at [facility] in [place] this Saturday. Pain is 9/10. DDX: Epidural [...] in a car going back home to [place] when she had dehiscence of her surgical site in her lumbar spine and started to have back pain which prompted her ED visit. Denies any red flag symptoms fall trauma or injury.On examination there is partial dehiscence of the lumbar spine from the surgical site. Patient had spine surgery in September in [place] with Dr. Adams due to infection of [...] PA-C, 12/04/2023 11:16 PM documented in this encounterMadison [id number] Hospital Discharge instructions* Discharge Instructions* Nighat Bailey PA-C - 12/04/2023 11:12 PM EDT Take Robaxin and Flexeril as directed for pain While take these medications do not drive vehicle Follow-up with your spine surgeon Saturday at your office appointment If there are any new/worsening symptoms with return to the emergency room * Attachments The following attachments cannot be sent through Care Everywhere. * Methocarbamol, ADULT (Cambodian) * Back Pain (Cambodian) * Cyclobenzaprine, ADULT (Cambodian) documented in this encounterMadison [id number] Emergency department Note* Ilya Carrillo RN - 12/04/2023 10:40 PM EDT Pt to CT [facility] [id number] Physician Emergency department Note* Ben Urbina MD - 12/04/2023 10:14 PM EDT I have seen Jerad Tracy with the [...] Her previous surgeries were done in the [place] area at the [facility]. Because of the severe pain she presentsto the emergency department today. Review of her [...] by: Ben Urbina MD, 12/04/2023 10:14 PM [place] [employer] Work Phone: [phone] 529-918509-11-2024 Emergency department Note* Rebecca Gómez RN - 12/04/2023 9:53 PM EDT Patient arrives ambulatory to triage with c/o back pain. Patient states she had a stimulator removed a month ago, just completed a 10 hour car ride and thinks that aggravated her back. A&Ox4. [facility] [id number] Physician Emergency department Note* Nighat Bailey PA- C - 12/04/2023 9:53 PM EDT Images from the original note were not included. TRIAGE CHIEF COMPLAINT: Chief Complaint Patient presents with Back Pain HPI: Jerad Tracy is a 48 year old female who presents to the emergency department with back pain. Patient reports tonight when she was in a car driving back home from [place] to [place]. Startedto have severe low back pain which prompted [...] with her spine surgeon Dr. Adams at [facility] this Saturday. Pain is 9/10. REVIEW [...] Resource Strain: Low Risk (11/17/2023) Received from [facility] Overall Financial Resource Strain (CARDIA) Difficulty of Paying Living Expenses: Not hard at all Food Insecurity: Patient Declined (10/11/2023) Received from [facility] Hunger Vital Sign Worried About Running Out of Food in the Last Year: Patient declined Ran Out of Food in the Last Year: Patient declined Transportation Needs: No Transportation Needs (11/17/2023) Received from [facility] PRAPARE - Transportation Lack of Transportation (Medical): No Lack of Transportation (Non-Medical): No Physical Activity: Patient Declined (10/11/2023) Received from [facility] Exercise Vital Sign Days of Exercise per Week: Patient declined Minutes of Exercise per Session: Patient declined Stress: Patient Declined (10/11/2023) Received from [facility] [place] [employer] - Occupational Stress Questionnaire Feeling of Stress : Patient declined Social Connections: Patient Declined (10/11/2023) Received from [facility] Social Connection and Isolation Panel [NHANES] Frequency of Communication with Friends and Family: Patient declined Frequency of Social Gatherings with Friends and Family: Patient declined Attends Druze Services: Patient declined Active Member of Clubs or Organizations: Patient declined Attends Club or Organization Meetings: Patient declined Marital Status: Patient declined Intimate Partner Violence: Patient Declined (10/11/2023) Received from [facility] Humiliation, Afraid, Rape, and Kick questionnaire Fear of Current or Ex-Partner: Patient declined Emotionally Abused: Patient declined Physically Abused: Patient declined Sexually Abused: Patient declined Housing Stability: Low Risk (11/17/2023) Received from [facility] Housing Stability Vital Sign Unable to Pay [...] a day as needed for Pain, Disp: ,Rfl: diazePAM (VALIUM) 5 mg tablet, Take 1 [...] 100 mL (100 mL IV Push Given 12/04/233) methocarbamoL (ROBAXIN) tablet 1,000 mg (1,000 mg [...] consider dedicated adrenal imaging. Keke Beebe D.O.Workstation ID:[id number] ED COURSE / MEDICAL DECISION MAKING: Jerad Tracy is a 48 year old female who presents to the emergency department with back pain. Patient reports tonight when she was in a car driving back home from [place] to [place]. Started to have severe low back pain which prompted her ED visit. Patient reports in September she had pain stimulator in her back removed due to infection. Patient reports she was on antibiotics for 6 weeks and finished her treatment course on November 27. Patient denies any trauma falls or injury. She denies bowelor bladder retention or incontinence or saddle anesthesia. She has not been taking any medicine forrelief of her pain. Patient states she has a office appointment with her spine surgeon Dr. Adams at [facility] this Saturday. Pain is 9/10. DDX: Epidural abscess, cellulitis, cauda equina, lumbar fracture, herniated disc, lumbar radiculopathy, any other emergent pathology ED Course as of 12/04/23 2316 Wed Dec 04, [id number] CT Spine Lumbar With Contrast IMPRESSION: Nonspecific posterior lumbar subcutaneous fat stranding without discrete fluid collection. 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 Incidental bilateral adrenal nodules (indeterminate on the basis of this examination); consider dedicated adrenal imaging. During ED course patient remained hemodynamically stable. Tonight when she was riding in a car going back home to [place] when she had dehiscence of her surgical site in her lumbar spine and started to have back pain which prompted her ED visit. Denies any red flag symptoms fall trauma or injury.On examination there is partial dehiscence of the lumbar spine from the surgical site. Patient had spine surgery in September in [place] with Dr. Adams due to infection of [...] by: Nighat Bailey PA-C, 12/04/2023 11:16 PM T [facility] [id number] Hospital Discharge instructions Patient Education 12/01/2023 14:28:11 Hypokalemia Hypokalemia [...] that helps you have a bowel movement (laxative)can cause diarrhea and lead to hypokalemia. Chronic [...] products, such as yogurt. General instructions Take kvqi-wps-wockwiz and prescription medicines only as told by [...] provider. Document Revised: 11/23/2021 Document Reviewed: 11/23/2021 [employer] Patient Education 2023 PFI Acquisition. 12/01/2023 14:28:11 Flank Pain, Adult, Otsv-ak-Rgrm Flank Pain, Adult Flank pain is pain [...] Rest as told by your doctor. Take rfdq-brm-qtcsxln and prescription medicines only as told by [...] provider. Document Revised: 05/22/2021 Document Reviewed: 05/22/2021 [employer] Patient Education 2023 PFI Acquisition. 12/01/2023 14:28:11 Abdominal Pain, Adult, Mlfd-dh-Evzy Abdominal Pain, Adult Many things can cause belly (abdominal) pain. In most cases, belly pain is not a serious problem and can be watched and treated at home. But in some cases, it can be serious. Your doctor will try to find the cause of your belly pain. Follow these instructions at home: Medicines Take eyjy-lyo-aayzpds and prescription medicines only as told by [...] provider. Document Revised: 12/26/2022 Document Reviewed: 12/26/2022 [employer] Patient Education 2023 PFI Acquisition. Follow Up Care 12/01/2023 11:43:39 With:Cheyanne Rosas Address: [address] [place], [place] [id number]- Business (1) When:12/04/2023 14:17:39 [facility] 09-08-2024 NoteED Patient Education Note Gastroenterology Hypokalemia Hypokalemia means [...] such as yogurt. General instructions ? Take efsy-qyf-lnvjlmx and prescription medicines only as told by [...] get potassium through an IV and be monitoredin the hospital. This information is not intended to replace advice given to you by your health care provider. Make sure you discuss any questions you have with your health care provider. Document Revised: 11/23/2021 Document Reviewed: 11/23/2021 [employer] Patient Education ? 2023 PFI Acquisition. Abdominal Pain, Adult Many things can cause belly (abdominal) pain. In most cases, belly pain is not a serious problem and can be watched and treated at home. But in some cases, it can be serious. Your doctor will try to find the cause of your belly pain. Follow these instructions at home: Medicines ? Take crba-bww-ecdthvv and prescription medicines only as told by [...] very little pee, o (more content not included)...[facility]09-08-2024 Evaluation + Plan noteExtracted from: Title:ED Note Author:Kristie Boss PA-C . [...] w/CAD if perf and 3D Kenan 07/17/23 [facility] 09-04-2024 Hospital Discharge instructions Patient Education 11/27/2023 [...] sitting or lying down. General instructions Take qvwj-jpq-mbuuqpf and prescription medicines only as told by [...] provider. Document Revised: 09/03/2022 Document Reviewed: 09/03/2022 [employer] Patient Education 2023 PFI Acquisition. Follow Up Care 11/27/2023 17:44:18 With:Peter Forrest Address: [address] [place] [address] Business (1) When:11/30/2023 19:33:03 With:Cheyanne Rosas Address: [address] [place] [address] Business (1) When:11/30/2023 19:32:55 [facility] 09-04-[address] [address] Emergency Department Note Signed Patient Name: Jerad Tracy bryce Record #: [id number] Date of : 1975 Age/Sex: 48 / [...] to have another one placed at the [place] where she had her previous surgery. However, [...] History History Provided by: Patient Preferred Language: Cambodian Usual Living Arrangement: With Spouse/Significant Other Smoking [...] % Lymph % (Auto) 22 (20-35) % [place] % (Auto) 6 (4-12) % Eos % (Auto) 1 L (2-5) % Baso % (Auto) 0 (0-1) % Lymph # (Auto) 2.6 (0.5-3.5) 10'3/uL [place] # (Auto) 0.7 (0.2-0.8) 10'3/uL Eos # [...] (CLEAR) Urine pH 7.0 (5.5-8.0) Ur Specific Salcha 1.015 (1.005-1.030) Urine Protein Negative (Negative) mg/dL [...] Name Donita PRN Reason Stop Dose Admin Sodium Chloride [...] By: Flex Veliz MD 11/26/232214 Signed By: 11/27/236 Cosigned By (if applicable): [id number] cc: [facility]09-04-2024 Radiology Diagnostic study note[address] [place] [address] CT Scan Report Signed with Addenda Patient Name: Jerad Tracy ical Record #: [id number] Date of : 1975 [place] t #:[id number] Age/Sex: 48 / F Location: ED Attending [...] Sean Simmons MD Signed By: 11/27/2353 DD/ 9 TD/TT: 11/27/23949 Ice Puller: [facility] Exam/Order Verified? Y Exam Explained to Patient/Family? Y Was Patient Shielded?N Is Patient ? N Consent Form Completed? Hx Last Menstrual Period: NO CHANCE Does Patient have a Diabetic Device? No Diabetic Device Type: Was the Diabetic Device Removed? If NO: was Removal Consent form completed? Patient was informed of radiation exposure prior to scan? Verified by Technologist:[id number] Comment: [id number] cc: Flex Veliz MD PCP,[facility]09-01-2024 Hospital Discharge instructions Patient Education 11/24/2023 15:09:05 Knee Sprain, Adult, Jrbg-cp-Dmho Knee Sprain, Adult A knee sprain is [...] sitting or lying down. General instructions Take evhw-dlx-bvvhhtg and prescription medicines only as told by [...] provider. Document Revised: 09/03/2022 Document Reviewed: 09/03/2022 [employer] Patient Education 2023 PFI Acquisition. Follow Up Care 11/24/2023 13:15:53 With:Peter Forrest Address: [address] [place] [address]- Business (1) When:11/27/2023 15:01:53 Comments:Call Dr for diagnosis based follow up With:Cheyanne Rosas Address: [address] [facility], [address] [employer] [address] [address]- Business (1) When:Within 3 Day(s) [facility] 09-01-2024 Evaluation + Plan noteExtracted from: Title:ED [...] w/CAD if perf and 3D Kenan 07/17/23 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 Another treatment may include muscle relaxants. Take bbmb-xic-yuoqlrb and prescription medicines only as told by your health care provider. Ask your health care provider if the medicine prescribed to you: ?Requires you to avoid driving or using machinery. ?Can cause constipation. You may need to take these actions to prevent or treat constipation: ?Drink enough fluid to keep your urine pale yellow. ?Take yuna-rdl-lquzozi or prescription medicines. ?Eat foods that are [...] online and in-person support groups through: The [place] [employer]: theacpa.org Pain Connection Program: [...] provider. Document Revised: 04/21/2020 Document Reviewed: 12/29/2019 [employer] Patient Education 2022 PFI Acquisition. Follow Up Care 11/05/2023 19:45:47 With:Cheyanne Rosas Address: [address] [place] [address], [facility] [place] [phone]- Business (1) When:11/08/2023 21:14:06 Comments:Call to schedule a follow-up appointment with your family physician and/or the back surgeon for further management of care. Return to the ED with any worsening symptoms. [facility] 08-13-2024 Evaluation + Plan noteExtracted from: Title:ED [...] Future Appointments Appointment Date:11/13/2023 08:00:00 AM Scheduled Provider:Domneic Sher DO Location:FT.[facility] Appointment Type:Pain Management - Follow Up (FT) Future Scheduled Tests Laboratory* TSH With T4fr Reflex 07/17/23 * Urinalysis with Micro 07/17/23 * Lipid Panel 07/17/23 * Drug Screen Urine 07/17/23 Radiology* MA Mamm Screen w/CAD if perf and 3D Kenan 07/17/23 [facility] 08-07-2024 History of Present illness Narrative* Julia, Joan - 10/30/2023 7:19 PM EDT Need lumbar spine x-ray to clear pt for MRI to make sure all stimulator and internal wires are completely removed [facility] Discharge instructions Patient Education 10/30/2023 12:55:31 [...] and water are not available, use hand regulator mechanic. Do not use disinfectants or antiseptics, such [...] Follow these instructions at home Medicines Take vjun-voe-puayvpi and prescription medicines only as told by [...] and water are not available, use hand regulator mechanic. Check your incision area every day for signs of infection. Keep all follow-up visits. This is important. This information is not intended to replace advice given to you by your health care provider. Make sure you discuss any questions you have with your health care provider. Document Revised: 06/12/2021 Document Reviewed: 06/12/2021 [employer] Patient Education 2022 PFI Acquisition. 10/30/2023 12:55:31 Chronic Back Pain Chronic Back [...] pull them backward. 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 [...] prescription pain medicine, or muscle relaxants. Take kxob-zso-ugbahcp and prescription medicines onlyas told by your health care provider. Ask your health care provider if the medicine prescribed to you: ?Requires you to avoid driving or using machinery. ?Can cause constipation. You may need to take these actions to prevent or treat constipation: ?Drink enough fluid to keep your urine pale yellow. ?Take vuve-jao-qyzmelr or prescription medicines. ?Eat foods that are [...] provider. Document Revised: 04/20/2020 Document Reviewed: 04/20/2020 [employer] Patient Education 2022 PFI Acquisition. Follow Up Care 10/30/2023 12:12:04 With:Cheyanne Rosas [facility] [place] [phone] [facility] (1) When:11/02/2023 12:41:56 Comments:Return to the emergency room if your pain gets worse, fever or any new symptoms [facility] 08-07-2024 Evaluation + Plan noteExtracted from: Title:ED Note Author:Annette Watkins, Balbina Sparks Vimal te:10/30/23 1. Chronic lower back pain ( [...] Date:11/13/2023 08:00:00 AM Scheduled Provider:Domenic Sher DO Location:[facility] Appointment Type:Pain Management - Follow Up (FT) Future Scheduled Tests Laboratory* TSH With T4fr Reflex 07/17/23 * Urinalysis with Micro 07/17/23 * Lipid Panel 07/17/23 * Drug Screen Urine 07/17/23 Radiology* MA Mamm Screen w/CAD if perf and 3D Kenan 07/17/23 [facility] 08-03-2024 Evaluation + Plan noteExtracted from: Title:ED Note Author:Pedro Pablo Fletcher DO Date :10/26/23 Candidal intertrigo (B37.2: Candidiasis of skin and nail) Orders: ketoconazole topical, 1 kennedi, Topical, BID for 28 day(s), 60 gm, Refill(s) 0, [id number], 160, cm, 10/26/23 2:47:00 EDT, Height/Length Dosing, 116.7, kg, 10/26/23 2:47:00 EDT, Weight Dosing Future Appointments Appointment Date:11/13/2023 08:00:00 AM Scheduled Provider:Domenic Sher DO Location:FT.[facility] Appointment Type:Pain Management - Follow Up (FT) Future Scheduled Tests Laboratory* TSH With T4fr Reflex 07/17/23 * Urinalysis with Micro 07/17/23 * Lipid Panel 07/17/23 * Drug Screen Urine 07/17/23 Radiology* MA Mamm Screen w/CAD if perf and 3D Kenan 07/17/23 [facility] 08-03-2024 Hospital Discharge instructions Patient Education [...] air conditioner or fan, if available. Apply fymd-tln-rxrlxfe and prescription medicines only as told by [...] well after activity or exercise. Use a fine unhairer on a cool setting to dry between [...] drying your skin and with medicines. Apply mbym-tzt-otarpip and prescription medicines only as told by your health care provider. Keep all follow-up visits as told by your health care provider. This is important. This information is not intended to replace advice given to you by your health care provider. Make sure you discuss any questions you have with your health care provider. Document Revised: 05/23/2022 Document Reviewed: 12/25/2021 [employer] Patient Education 2022 PFI Acquisition. Follow Up Care 10/26/2023 02:36:10 With:Cheyanne Rosas Address: [address] [address]- Business (1) When:10/31/2023 [facility] 07-13-2024 NoteEducation Materials Dermatology Wound Dehiscence [...] these instructions at home: Medicines ? Take dbmp-iel-ktxbfvz and prescription medicines only as told by [...] youcannot use soap and water, use hand regulator mechanic. ? Wash your wound with mild soap [...] provider. Document Revised: 03/02/2020 Document Reviewed: 03/02/2020 [employer] Patient Education ? 2022 PFI Acquisition.[facility] [id number] Note Pt ambulator back to ED RM 6 C/O insicioin pain. Pt was in the ED recently for the same complaint. Pt had a procedure done on her lower back. Wound is red, inflamed and little bit of drainage noted. Pt was prescribed antibiotics and took all of the prescribed antibiotic. Pt is A/Ox4 call light within reach [facility]07-12-2024 Hospital Discharge instructions Patient Education 10/04/2023 15:44:00 Contact Dermatitis, Kxzr-nj-Kjmw Contact Dermatitis Dermatitis is redness, soreness, and [...] perfumes, and dyes. Medicines Take or apply mfuh-xtl-xlklsvj and prescription medicines only as told by [...] soap and water arenot available, use hand regulator mechanic. General instructions Avoid the things that caused [...] provider. Document Revised: 12/25/2021 Document Reviewed: 12/25/2021 [employer] Patient Education 2022 PFI Acquisition. 10/04/2023 15:44:00 Acute Back Pain, Adult Acute [...] home: Managing pain, stiffness, and swelling Take qhwv-njt-nxvawvv and prescription medicines only as told by [...] each day. Do not sit, drive, or hvac design engineer one place for more than 30 minutes [...] put less stress on your back. Take apdp-dss-izasecy and prescription medicines only as told by your health care provider, and apply heat or ice as told. This information is not intended to replace advice given to you by your health care provider. Make sure you discuss any questions you have with your health care provider. Document Revised: 06/02/2021 Document Reviewed: 06/02/2021 [employer] Patient Education 2022 PFI Acquisition. 10/04/2023 15:44:00 Wound Dehiscence, Uqfh-ap-Ftxz Wound Dehiscence Wound dehiscence is when a [...] Follow these instructions at home: Medicines Take tpgk-kke-zsxncyz and prescription medicines only as told by [...] cannot use soap and water, use hand regulator mechanic. ?Wash your wound with mild soap and [...] provider. Document Revised: 03/02/2020 Document Reviewed: 03/02/2020 [employer] Patient Education 2022 PFI Acquisition. Follow Up Care 10/04/2023 14:32:53 With:Cheyanne Rosas Address: [address] [place] [address] [facility] (1) When:10/07/2023 15:32:21 Comments:Call Dr for diagnosis based follow up [facility]07-04-2024 NoteEducation Materials Caregiving Pain Medicine Instructions [...] take your next dose. ? Take other epju-swk-hdimakr or prescription medicines only as told by [...] your pee (urine) pale yellow. ? Take wuur-wer-fgqxiwe or prescription medicines. ? Eat foods that [...] awake. ? Your skin (more content not included)...[facility] HospitalLlrdnoev25-09-9282 NotePt ambulatory back to ED RM 10, C/O lower back pain. Pt had a procedure down on the lower back at the [facility]. by Dr. Adams. 12/02 pain, the inscions is red, warm to touch. no fever. Pt stated she was not sent home on any antibiotics. Pt tried to call the hospital and was told to come to the ER. Pt is A/ox4 call light within reach. the incision is locate on her lower back to her butt crack. [facility]07-03-2024 Hospital Discharge instructions Patient Education [...] Follow these instructions at home: Medicines Take iagi-xnf-azeloor and prescription medicines only as told by [...] such as antibiotic medicines or antihistamines. Take qoga-bbj-smhnfed and prescription medicines only as told by [...] provider. Document Revised: 12/20/2021 Document Reviewed: 12/21/2021 [employer] Patient Education 2022 PFI Acquisition. Follow Up Care 09/25/2023 11:29:17 With:Cheyanne Rosas Address: [address], [address] [address]- Business (1) When:09/28/2023 13:36:08 Comments:Call Dr for diagnosis based follow up [facility]07-03-2024 Evaluation + Plan noteExtracted from: Title:ED Note Author:Yaw MILES, Landon Celis te:09/25/23 Cellulitis (L03.90: Cellulit is, unspecified) Post-operative [...] Date:11/13/2023 08:00:00 AM Scheduled Provider:Domenic Sher DO Location:FT.[facility] Appointment Type:Pain Management - Follow Up (FT) Future Scheduled Tests Laboratory* TSH With T4fr Reflex 07/17/23 * Urinalysis with Micro 07/17/23 * Lipid Panel 07/17/23 * Drug Screen Urine 07/17/23 Radiology* MA Mamm Screen w/CAD if perf and 3D Kenan 07/17/23 [facility]06-29-2024 Hospital Discharge instructions Patient Education 09/21/2023 12:23:40 Chronic Back Pain, Qexr-tq-Gzhc Chronic Back Pain When back pain lasts [...] pull them backward. 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 [...] prescription pain medicine, or muscle relaxants. Take difw-twk-tvvjcer and prescription medicines only as told by your doctor. Ask your doctor if the medicine prescribed to you: ?Requires you to avoid driving or using machinery. ?Can cause trouble pooping (constipation). You may need to take these actions to prevent or treat trouble pooping: ?Drink enough fluid to keep your pee (urine) pale yellow. ?Take liva-kab-kkbllqc or prescription medicines. ?Eat foods that are [...] provider. Document Revised: 04/20/2020 Document Reviewed: 04/20/2020 [employer] Patient Education 2022 PFI Acquisition. Follow Up Care 09/21/2023 11:14:36 With:Cheyanne Rosas Address: [address] [place] [address], [facility] A [place] [phone] Business (1) When:09/24/2023 12:14:29 [facility]06-29-2024 Evaluation + Plan noteExtracted from: Title:ED Note Author:Kristie Boss PA-C Date:09/21/23 1. Chronic low back pain wit h left-sided sciatica (M54.42: Lumbago with sciatica, left side) Other chronic pain (G89.29: Other chronic pain) Orders: cyclobenzaprine, 10 mg = 1 tab(s), Oral, TID, PRN for spasm, # 30 tab(s), Refills(s) 0, Pharmacy: [facility]/pharmacy #[id number], 160, cm, 09/21/23 11:20:00 EDT, Height/Length [...] Date:11/13/2023 08:00:00 AM Scheduled Provider:Domenic Sher DO Location:FT.[facility] Appointment Type:Pain Management - Follow Up (FT) Future Scheduled Tests Laboratory* TSH With T4fr Reflex 07/17/23 * Urinalysis with Micro 07/17/23 * Lipid Panel 07/17/23 * Drug Screen Urine 07/17/23 Radiology* MA Mamm Screen w/CAD if perf and 3D Kenan 07/17/23 [facility]06-28-2024 Evaluation + Plan noteExtracted from: Title:ED Note Author:Robert Taylor PA-C te:09/20/23 Chronic back pain (M54.9: Do rsalgia, unspecified) Other chronic pain (G89.29: Other chronic pain) Orders: oxycodone, 10 mg = 2 tab(s), Tab, Oral, Once, Stop date 09/20/23 11:15:00 EDT, STAT, Start date 09/20/23 11:15:00 EDT, 09/20/23 11:15:00 EDT Future Appointments Appointment Date:11/13/2023 08:00:00 AM Scheduled Provider:Domenic Sher DO Location:.[facility] Appointment Type:Pain Management - Follow Up (FT) Future Scheduled Tests Laboratory* TSH With T4fr Reflex 07/17/23 * Urinalysis with Micro 07/17/23 * Lipid Panel 07/17/23 * Drug Screen Urine 07/17/23 Radiology* MA Mamm Screen w/CAD if perf and 3D Kenan 07/17/23 [facility]06-28-2024 Hospital Discharge instructions Patient Education 09/20/2023 11:31:16 Chronic Obstructive Pulmonary Disease, Yofj-do-Aaby Chronic Obstructive Pulmonary Disease Chronic obstructive pulmonary [...] Follow these instructions at home: Medicines Take jlas-fcj-wktykvm and prescription medicines only as told by [...] keep yourself as healthy as possible. Take idax-xuq-lmjbdvo and prescription medicines only as told by your doctor. If you smoke, stop. Smoking makes the problem worse. This information is not intended to replace advice given to you by your health care provider. Make sure you discuss any questions you have with your health care provider. Document Revised: 01/17/2021 Document Reviewed: 01/17/2021 Elsevier Patient Education 2022 PFI Acquisition. Follow Up Care 09/20/2023 10:52:05 With:Cheyanne Rosas Address: [address], [address] [place] [id number] [facility] (1) When:09/23/2023 11:16:15 [facility]06-25-2024 Hospital Discharge instructions Patient Education 09/17/2023 [...] numbers. This can be done either in [place]ian (U.[place].) or metric measurements. Note that charts and online BMI calculators are available to help you find your BMI quickly and easily without having to do these calculations yourself. To calculate your BMI in Cambodian ([place].) measurements: 1.Measure your weight in pounds [...] Centers for Disease Control and Prevention: www.cdc.gov [place] [employer]: www.heart.org National Heart, Lung, and Blood Bend: www.nhlbi.nih.gov Summary Body mass index (BMI) is a number that is calculated from a person's weight and height. BMI may help estimate how much of a person's weight is composed of fat. BMI can help identify thosewho may be at higher risk for certain medical problems. BMI can be measured using Cambodian measurements or metric measurements. BMI charts are used to identify whether you are underweight, normal weight, overweight, or obese. This information is not intended to replace advice given to you by your health care provider. Make sure you discuss any questions you have with your health care provider. Document Revised: 12/02/2019 Document Reviewed: 10/09/2019 [employer] Patient Education 2022 PFI Acquisition. 09/17/2023 17:50:52 Steps to Quit Smoking Steps [...] require a prescription. You can also purchase ting-dhg-qblvruf medicines. Medicines may have nicotine in them [...] and encouragement. Call telephone quitlines, such as 1-598-BYZT-NOW, reach out to support groups, or work [...] provider. Document Revised: 03/02/2022 Document Reviewed: 03/02/2022 [employer] Patient Education 2022 PFI Acquisition. 09/17/2023 17:50:51 Health Risks of Smoking Health [...] Department of Health and Human Services: www.smokefree.gov [place] [employer]: www.freedomfromsmoking.org [place] [employer]: www.heart.org Where to find more [...] provider. Document Revised: 03/13/2022 Document Reviewed: 03/13/2022 [employer] Patient Education 2022 PFI Acquisition. Follow Up Care 09/17/2023 17:37:01 With:Cheyanne Rincon [facility], [facility] Address: [address] [facility] [address] [address]- When: Unknown [facility] 06-18-2024 Hospital Discharge instructions Patient Education 09/09/2023 23:26:42 Chronic Back Pain, Wscq-px-Olzn Chronic Back Pain When back pain lasts [...] pull them backward. 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 [...] prescription pain medicine, or muscle relaxants. Take gczm-hfs-juwjjke and prescription medicines only as told by your doctor. Ask your doctor if the medicine prescribed to you: ?Requires you to avoid driving or using machinery. ?Can cause trouble pooping (constipation). You may need to take these actions to prevent or treat trouble pooping: ?Drink enough fluid to keep your pee (urine) pale yellow. ?Take pwru-axe-mtenjie or prescription medicines. ?Eat foods that are [...] provider. Document Revised: 04/20/2020 Document Reviewed: 04/20/2020 [employer] Patient Education 2022 [employer] 09/09/2023 23:26:42 Acute Back Pain, Adult Acute [...] home: Managing pain, stiffness, and swelling Take jrqe-nzd-amtnphx and prescription medicines only as told by [...] each day. Do not sit, drive, or hvac design engineer one place for more than 30 minutes [...] put less stress on your back. Take hyqb-xhi-tfexgmx and prescription medicines only as told by your health care provider, and apply heat or ice as told. This information is not intended to replace advice given to you by your health care provider. Make sure you discuss any questions you have with your health care provider. Document Revised: 06/02/2021 Document Reviewed: 06/02/2021 [employer] Patient Education 2022 PFI Acquisition. Follow Up Care 09/09/2023 18:55:50 With:Cheyanne Rosas Address: [address] [place] [address], [facility] [address] [place] [phone] [facility] (1) When:09/12/2023 Comments:Call Dr for diagnosis based follow up [facility]06-17-2024 Evaluation + Plan noteExtracted from: Title:ED Note Author:Yaw MILES, Landon Celis te:09/09/23 Chronic back pain (M54.9: Do rsalgia, [...] Appointment Date:09/11/2023 09:00:00 AM Scheduled Provider:Ashia Simental Location:[facility] Appointment Type: Intake Appointment Date:11/13/2023 08:00:00 AM Scheduled Provider:Domenic Sher DO Location:[facility] Appointment Type:Pain Management - Follow Up (FT) Future Scheduled Tests Laboratory* TSH With T4fr Reflex 07/17/23 * Urinalysis with Micro 07/17/23 * Lipid Panel 07/17/23 * Drug Screen Urine 07/17/23 Radiology* MA Mamm Screen w/CAD if perf and 3D Kenan 07/17/23 [facility]06-14-2024 Evaluation + Plan noteExtracted from: Title:ED [...] Appointment Date:09/11/2023 09:00:00 AM Scheduled Provider:Ashia Simental Location:[facility] Appointment Type: Intake Appointment Date:11/13/2023 08:00:00 AM Scheduled Provider:Domenic Sher DO [facility] Type:Pain Management - Follow Up (FT) Future Scheduled Tests Laboratory* TSH With T4fr Reflex 07/17/23 * Urinalysis with Micro 07/17/23 * Lipid Panel 07/17/23 * Drug Screen Urine 07/17/23 Radiology* MA Mamm Screen w/CAD if perf and 3D Kenan 07/17/23 [facility]06-10-2024 Hospital Discharge instructions Patient Education 09/02/2023 [...] pull them backward. 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 [...] prescription pain medicine, or muscle relaxants. Take utam-vdb-dtsgqcf and prescription medicines onlyas told by your health care provider. Ask your health care provider if the medicine prescribed to you: ?Requires you to avoid driving or using machinery. ?Can cause constipation. You may need to take these actions to prevent or treat constipation: ?Drink enough fluid to keep your urine pale yellow. ?Take kxwe-ndr-fpmxvjp or prescription medicines. ?Eat foods that are [...] provider. Document Revised: 04/20/2020 Document Reviewed: 04/20/2020 [employer] Patient Education 2022 PFI Acquisition. Follow Up Care 09/02/2023 17:51:01 With:Domenic Sher Address: [address] [place] [address] Business (1) When:09/05/2023 18:28:26 With:[employer] Address: [address] [place] [address] Business (1) When:09/05/2023 18:28:19 With:Cheyanne Rosas Address: [address] [facility] [address] [place] [address]- Business (1) When:Within 3 Day(s) [facility]06-10-2024 Evaluation + Plan noteExtracted from: Title:ED Note Author:Jorge Mcintosh DO Date:08/23 Back pain (M54.9: Dorsalgia, unspecified) Orders: diazepam, 5 mg = 1 mL, Injection, IntraMuscular, Once, Stop date 09/02/23 18:30:00 EDT, STAT, Start date 09/02/23 18:30:00 EDT, 09/02/23 18:30:00 EDT diflunisal, 500 mg = 1 tab(s), Oral, q12hr, # 20 tab(s), Refills(s) 0, Pharmacy: [facility]/pharmacy #[id number], 160, cm, 09/02/23 18:11:00 EDT, Height/Length Dosing, 115.5, kg, 09/02/23 18:11:00 EDT, Weight Dosing ketorolac, 60 mg = 2 mL, Injection, IntraMuscular, Once, Stop date 09/02/23 18:30:00 EDT, STAT, Start date 09/02/23 18:30:00 EDT, 09/02/23 18:30:00 EDT lidocaine topical, 1 patch(es), Topical, Daily, 7 patch(es), Refill(s) 0, apply 12 hours on and 12 hours off daily, [facility]/pharmacy #[id number], 160, cm, 09/02/23 18:11:00 EDT, Height/Length Dosing, 115.5, kg, 09/02/23 18:11:00 EDT, Weight Dosing methocarbamol, 750 mg = 1 tab(s), Oral, TID, X 7 day(s), # 21 tab(s), Refills(s) 0, Pharmacy: [facility]/pharmacy #[id number], 160, cm, 09/02/23 18:11:00 EDT, Height/Length Dosing, 115.5, kg, 09/02/23 18:11:00 EDT, Weight Dosing Future Appointments Appointment Date:09/11/2023 09:00:00 AM Scheduled Provider:Ashia Simental [facility] Appointment Type: Intake Appointment Date:11/13/2023 08:00:00 AM Scheduled Provider:Domenic Sher DO Location:[facility] Appointment Type:Pain Management - Follow Up (FT) Future Scheduled Tests Laboratory* TSH With T4fr Reflex 07/17/23 * Urinalysis with Micro 07/17/23 * Lipid Panel 07/17/23 * Drug Screen Urine 07/17/23 Radiology* MA Mamm Screen w/CAD if perf and 3D Kenan 07/17/23 [facility]06-07-2024 Hospital Discharge instructions Patient Education 08/30/2023 19:01:28 Chronic Back Pain, Wjzl-bq-Qnzp Chronic Back Pain When back pain lasts [...] pull them backward. 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 [...] prescription pain medicine, or muscle relaxants. Take knmn-rgm-hgyjhvp and prescription medicines only as told by your doctor. Ask your doctor if the medicine prescribed to you: ?Requires you to avoid driving or using machinery. ?Can cause trouble pooping (constipation). You may need to take these actions to prevent or treat trouble pooping: ?Drink enough fluid to keep your pee (urine) pale yellow. ?Take njvf-lqt-ugnaoyw or prescription medicines. ?Eat foods that are [...] provider. Document Revised: 04/20/2020 Document Reviewed: 04/20/2020 [employer] Patient Education 2022 PFI Acquisition. Follow Up Care 08/30/2023 18:12:14 With:Ralph BEYER, VANESSA Aaron, MED Address: [address], [facility] A [address] [address]- When:09/02/2023 [facility]06-07-2024 Evaluation + Plan noteExtracted from: Title:ED Note Author:April Krueger PA-C ate:08/30/23 1. Acute exacerbation of chr onic low back pain (M54.50: Low back pain, unspecified) Ordered: methylPREDNISolone, = 1 packet(s), Oral, As Directed, as directed on package labeling, X 6 day(s), # 21 tab(s), Refills(s) 0, Pharmacy: [facility]/pharmacy #[id number], 160, cm, 08/30/23 18:16:00 EDT, Height/Length [...] Appointment Date:09/11/2023 09:00:00 AM Scheduled Provider:Ashia Simental Location[facility] Appointment Type: Intake Appointment Date:11/13/2023 08:00:00 AM Scheduled Provider:Domenic Sher DO Location:[facility] Appointment Type:Pain Management - Follow Up (FT) Future Scheduled Tests Laboratory* TSH With T4fr Reflex 07/17/23 * Urinalysis with Micro 07/17/23 * Lipid Panel 07/17/23 * Drug Screen Urine 07/17/23 Radiology* MA Mamm Screen w/CAD if perf and 3D Kenan 07/17/23 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 History of Present Illness [...] (hepatitis C virus) 2013 (in setting of [facility] opioid use), treated with medication, seen by [...] perc thoracic lead, c/d/I. [facility] Phone: 1(487) 668-342605-29-2024 Hospital Note* Hospital Course - Tiff Story MD - 08/21/2023 6:11 AM EDT 48yF h/o chronic bilateral low back pain, neuropathic BLE pain (R>L), LL radiculopathy, HCV, GERD, depression, bipolar disorder, presenting for spinal cord stimulator trial. 08/20 s/p thoracic spinal stimulator lead placement for trial. On the day of discharge, patient was clinically stable from a neurosurgical perspective. [facility] Work Phone: 1(570) 287-303005-29-2024 Miscellaneous Notes* Hospital Course - Tiff Story MD - 08/21/2023 6:11 AM EDT 48yF h/o chronic bilateral low back pain, neuropathic BLE pain (R>L), LL radiculopathy, HCV, GERD, depression, bipolar disorder, presenting for spinal cord stimulator trial. 08/20 s/p thoracic spinal stimulator lead placement for trial. On the day of discharge, patient was clinically stable from a neurosurgical perspective. [facility] Work Phone: [phone]) 873-246205-25-2024 NoteEducation Materials Mental and Behavioral Health Chronic [...] skin (aromatherapy). Other treatments may include: ? Rjof-alg-hrunjnn or prescription medicines. ? Color, light, or sound therapy. ? Local electrical stimulation. The electrical pulses help to relieve pain by temporarily stopping the nerve impulses that cause you to feel pain. ? Injections. These deliver numbing or pain-relieving medicines into the spine or the area of pain. Medicines ? Take jbls-rfp-rkzyoyd and prescription medicines only as told by your health care provider. ? Ask your health care provider if the medicine prescribed to you: ? Requires you to avoid driving or using machinery. ? Can cause constipation. You may need to take these actions to prevent or treat constipation: ? Drink enough fluid to keep your urine pale yellow. ? Take wgkt-gqt-mfglmpi or prescription medicines. ? Eat foods that [...] the National Suicide Prevention Lifeline at or 553. This is open 24 hours a day. ? Text the Crisis Text Line at 869430. This information is not intended to replace advice given to you by your health care provider. Make sure you discuss any questions you have with your health care provider. Document Revised: 10/31/2022 Document Reviewed: 10/03/2022 [employer] Patient Education ? 2022 [employer] Orthopedics Lumbosacral Strain A lumbosacral strain is an injury that causes pain in the lower back (lumbosacral spine). This injury usually happens from overstretching the muscles or ligaments along the spine. Ligaments are cord-l (more content not included)...[id number] Evaluation + Plan noteExtracted from: Title:ED Note [...] spasm, # 20 tab(s), Refills(s) 0, Pharmacy: [facility]/pharmacy #[id number], 160, cm, 08/15/23 22:27:00 EDT, Height/Length Dosing, 115.5, kg, 08/15/23 22:27:00 EDT, Weight Dosing CT Head or Brain w/o Contrast CT Spine Cervical w/o Contrast XR Spine Lumbosacral 2 or 3 Views XR Spine Thoracic 3 Views Future Appointments Appointment Date:09/11/2023 09:00:00 AM Scheduled Provider:Ashia Simental Location:[facility] Appointment Type: Intake Appointment Date:11/13/2023 08:00:00 AM Scheduled Provider:Domenic Sher DO Location:[facility] Appointment Type:Pain Management - Follow Up (FT) Future Scheduled Tests Laboratory* TSH With T4fr Reflex 07/17/23 * Urinalysis with Micro 07/17/23 * Lipid Panel 07/17/23 * Drug Screen Urine 07/17/23 Radiology* MA Mamm Screen w/CAD if perf and 3D Kenan 07/17/23 [facility]05-24-2024 Hospital Discharge instructions Patient Education 08/16/2023 [...] is not too tight. General instructions Take vixg-lui-rjnbhzc and prescription medicines only as told by [...] provider. Document Revised: 05/29/2021 Document Reviewed: 05/29/2021 [employer] Patient Education 2022 [employer]. 08/16/2023 01:25:49 Head Injury, Adult Head Injury, [...] Ask your health care provider for a ycdd-zx-kwgh plan for gradually returning to activities. Ask [...] your friends, family, a trusted colleague, and still worker helper about your injury, symptoms, and restrictions. Have them watch for any new or worsening problems. General instructions Take zidb-iyo-tmjpayk and prescription medicines only as told by [...] provider. Document Revised: 01/22/2020 Document Reviewed: 01/22/2020 [employer] Patient Education 2022 [employer] Follow Up Care 08/15/2023 22:16:33 With:Occupational Health: [phone] Address:Unknown When:08/19/2023 Comments:Return to the emergency room if your headache gets worse, vomiting, your pain gets worse or any newsymptoms. [facility]05-22-2024 Evaluation + Plan noteExtracted from: Title:chronic [...] Appointment Date:09/11/2023 09:00:00 AM Scheduled Provider:Ashia Simental Location:[facility] Appointment Type: Intake Appointment Date:11/13/2023 08:00:00 AM Scheduled Provider:Domenic Sher DO Location:[facility] Appointment Type:Pain Management - Follow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 Another treatment may include muscle relaxants. Take hune-xml-xabmitk and prescription medicines only as told by your health care provider. Ask your health care provider if the medicine prescribed to you: ?Requires you to avoid driving or using machinery. ?Can cause constipation. You may need to take these actions to prevent or treat constipation: ?Drink enough fluid to keep your urine pale yellow. ?Take dyzr-pyf-udekget or prescription medicines. ?Eat foods that are [...] online and in-person support groups through: The [place] Chronic Pain Association: theacpa.org Pain Connection Program: [...] provider. Document Revised: 04/21/2020 Document Reviewed: 12/29/2019 [employer] Patient Education 2022 [employer]quisition. Follow Up Care 07/11/2023 09:19:03 With:Cheyanne Rosas Address: [address] [place] [address] A [place] [phone] Business (1) When:07/14/2023 09:59:05 Comments:Make sure to follow-up with your primary doctor and the pain management. Return to the emergency room if your pain gets worse, bowel or bladder incontinence, numbness/tingling in the saddle/groin area, weakness in your legs or any new symptoms. 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 She has [...] Department of Psychiatry Director, Division of Psychology [facility] (o) [phone] documented in this [facility] Work Phone: [phone] Hospital Discharge instructions Patient Education 07/06/2023 19:51:44 [...] home: Managing pain, stiffness, and swelling Take makl-oed-lyqrmmu and prescription medicines only as told by [...] each day. Do not sit, drive, or hvac design engineer one place for more than 30 minutes [...] put less stress on your back. Take ibmq-dpf-rasyyqj and prescription medicines only as told by your health care provider, and apply heat or ice as told. This information is not intended to replace advice given to you by your health care provider. Make sure you discuss any questions you have with your health care provider. Document Revised: 06/02/2021 Document Reviewed: 06/02/2021 [employer] Patient Education 2022 [employer] Inc. Follow Up Care 07/06/2023 18:10:42 With:Cheyanne Rosas Address: [address], [facility] A [place] [phone] Business (1) When:Within 3 Day(s) [facility]04-13-2024 Evaluation + Plan noteExtracted from: Title:ED [...] PM Scheduled Provider:Dory Shepherd PA-C [facility] Appointment Type:Pain Management - New () Appointment Date:07/17/2023 07:40:00 AM Scheduled Provider:Cheyanne Rincon Location:[facility] Appointment Type:FM New Patient - Adult [facility]04-06-2024 Hospital Discharge instructions Patient Education 06/29/2023 [...] pull them backward. 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 [...] prescription pain medicine, or muscle relaxants. Take pmjk-dpv-xujstcg and prescription medicines onlyas told by your health care provider. Ask your health care provider if the medicine prescribed to you: ?Requires you to avoid driving or using machinery. ?Can cause constipation. You may need to take these actions to prevent or treat constipation: ?Drink enough fluid to keep your urine pale yellow. ?Take pftq-eyo-eihlkjo or prescription medicines. ?Eat foods that are [...] provider. Document Revised: 04/20/2020 Document Reviewed: 04/20/2020 [employer] Patient Education 2022 [employer]. 06/29/2023 14:20:12 Acute Back Pain, Adult Acute [...] home: Managing pain, stiffness, and swelling Take enke-lww-iuvkkmo and prescription medicines only as told by [...] each day. Do not sit, drive, or hvac design engineer one place for more than 30 minutes [...] put less stress on your back. Take uzfy-wvg-mdeuqno and prescription medicines only as told by your health care provider, and apply heat or ice as told. This information is not intended to replace advice given to you by your health care provider. Make sure you discuss any questions you have with your health care provider. Document Revised: 06/02/2021 Document Reviewed: 06/02/2021 [employer] Patient Education 2022 [employer]. Follow Up Care 06/29/2023 13:03:37 With:Cheyanne Rosas Address: [address] [place], [place] [id number] Business (1) When:07/02/2023 14:07:11 Comments:Follow-up with your primary care provider in 3 to 5 days. If symptoms worsen, do not improve, or new symptoms arise please report back to emergency department for further evaluation. [facility]04-06-2024 Evaluation + Plan noteExtracted from: Title:ED [...] Hospital Appointment [id number] Discharge instructions Patient Education 06/27/2023 12:37:54 [...] pull them backward. 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 [...] a greater risk of getting burned. Take drlz-iwj-cskieut and prescription medicines only as told by [...] provider. Document Revised: 09/14/2021 Document Reviewed: 09/14/2021 [employer] Patient Education 2022 [employer]. 06/27/2023 12:37:54 Herniated Disk Herniated Disk A [...] Follow these instructions at home: Medicines Take gjrz-mpc-sschstf and prescription medicines only as told by your health care provider. Ask your health care provider if the medicine prescribed to you: ?Requires you to avoid driving or using heavy machinery. ?Can cause constipation. You may need to take these actions to prevent or treat constipation: ?Drink enough fluid to keep your urine pale yellow. ?Take nidi-fee-bpskttj or prescription medicines. ?Eat foods that are [...] provider. Document Revised: 06/29/2020 Document Reviewed: 06/29/2020 [employer] Patient Education 2022 [employer]. Follow Up Care 06/27/2023 11:49:45 With:Pain Clinic: [facility] [phone] Address:Unknown When:06/30/2023 12:22:32 With:Cheyanne Rosas Address: [address] [place], [place] [phone] Business (1) When:Within 3 Day(s) [facility]04-04-2024 Evaluation + Plan noteExtracted from: Title:ED [...] prednisone, # 40 tab(s), Refills(s) 0, Pharmacy: [facility]/pharmacy #[id number], 160, cm, 06/27/23 11:54:00 EDT, Height/Length [...] days., # 18 tab(s), Refills(s) 0, [id number], cm, 06/27/23 11:54:00 EDT, Height/Length Dosing, 117.2, kg, 06/27/23 11:5... tizanidine, 4 mg = 1 tab(s), Oral, q6hr, PRN Muscle pain, # 40 tab(s), Refills(s) 0, [id number], cm, 06/27/23 11:54:00 EDT, Height/Length Dosing, 117.2, kg, 06/27/23 11:54:00 EDT, Weight Dosing Future Appointments Appointment Date:07/17/2023 07:40:00 AM Scheduled Provider:Cheyanne Rincon Location:[facility] Appointment Type:FM New Patient - Adult [facility]04-01-2024 Evaluation + Plan noteExtracted from: Title:ED [...] Hospital Appointment Type:FM New Patient - Adult [facility]04-01-2024 Hospital Discharge instructions Patient Education 06/24/2023 [...] pull them backward. 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 [...] prescription pain medicine, or muscle relaxants. Take ygpr-ljp-unntjce and prescription medicines onlyas told by your health care provider. Ask your health care provider if the medicine prescribed to you: ?Requires you to avoid driving or using machinery. ?Can cause constipation. You may need to take these actions to prevent or treat constipation: ?Drink enough fluid to keep your urine pale yellow. ?Take affg-llm-mqjxhzv or prescription medicines. ?Eat foods that are [...] provider. Document Revised: 04/20/2020 Document Reviewed: 04/20/2020 [employer] Patient Education 2022 [employer]. Follow Up Care 06/24/2023 09:43:03 With:Cheyanne Rosas Address: [facility] [place], [facility] [place] [phone] [facility] (1) When:06/27/2023 11:48:27 Comments:Follow-up with your primary doctor and your back specialist. Return to the emergency room if your pain gets worse or any new symptoms. [facility]03-30-2024 Hospital Discharge instructions Patient Education 06/22/2023 18:48:41 Viral Gastroenteritis, Adult, Jvha-uh-Rgvn Viral Gastroenteritis, Adult Viral gastroenteritis is also [...] younger than 2 years. Living in a assisted. Going on cruise ships. What are the [...] cannot use soap and water, use hand regulator mechanic. Make sure that all people in your home wash their hands well and often. Take vbur-mph-otmbllr and prescription medicines only as told by [...] cannot use soap and water, use hand regulator mechanic. This information is not intended to replace advice given to you by your health care provider. Make sure you discuss any questions you have with your health care provider. Document Revised: 01/08/2022 Document Reviewed: 01/08/2022 [employer] Patient Education 2022 [employer]. Follow Up Care 06/22/2023 14:18:20 With:Cheyanne Rosas Address: [facility] [address], [facility] [place] [phone] Business (1) When:06/25/2023 18:47:46 Comments:Call the office [...] weakness, or any new or worsening symptoms. [facility]03-30-2024 Evaluation + Plan noteExtracted from: Title:ED Note Author:Susu Lamar PA-C Date :06/22/23 Acute gastroenteritis (K52.9 : Noninfective gastroenteritis and colitis, unspecified) Orders: dicyclomine, 10 mg = 1 cap(s), Oral, QID, PRN Other (see comment), For abdominal cramping, # 12 cap(s), Refills(s) 0, Pharmacy: [facility]/pharmacy #[id number], 160, cm, 06/22/23 14:24:00 EDT, Height/Length Dosing, 118.5, kg, 06/22/23 14:24:00 EDT, Weight Dosing dicyclomine, 20 mg = 1 tab(s), Tab, Oral, Once, Stop date 06/22/23 18:49:00 EDT, STAT, Start date 06/22/23 18:49:00 EDT, 06/22/23 18:49:00 EDT ondansetron, 4 mg = 1 tab(s), Oral, q8hr, PRN Nausea/Vomiting, # 12 tab(s), Refills(s) 0, Pharmacy: [facility]/pharmacy #[id number], 160, cm, 06/22/23 14:24:00 EDT, Height/Length Dosing, 118.5, kg, 06/22/23 14:24:00 EDT, Weight Dosing ondansetron, 4 mg = 1 tab(s), Tab-Dis, Oral, Once, Stop date 06/22/23 18:49:00 EDT, STAT, Start date 06/22/23 18:49:00 EDT, 06/22/23 18:49:00 EDT Future Appointments Appointment Date:07/17/2023 07:40:00 AM Scheduled Provider:Cheyanne Rincon Location:[facility] Appointment Type:FM New Patient - Adult [facility]03-23-2024 Hospital Discharge instructions Patient Education 06/15/2023 [...] pull them backward. 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 [...] prescription pain medicine, or muscle relaxants. Take qndd-uqe-gzxqxck and prescription medicines onlyas told by your health care provider. Ask your health care provider if the medicine prescribed to you: ?Requires you to avoid driving or using machinery. ?Can cause constipation. You may need to take these actions to prevent or treat constipation: ?Drink enough fluid to keep your urine pale yellow. ?Take khfl-mle-rhxixex or prescription medicines. ?Eat foods that are [...] provider. Document Revised: 04/20/2020 Document Reviewed: 04/20/2020 [employer] Patient Education 2022 [employer]. Follow Up Care 06/15/2023 17:57:51 With:Cheyanne Rosas Address: [facility] [place] [phone] Business (1) When:06/18/2023 18:33:35 Comments:Return to the emergency room if your pain gets worse, bowel or bladder incontinence, numbness/tingling in the saddle/groin area or any new symptoms. [facility]03-23-2024 Emergency department Note* Germaine Diza, ELIZABETH-LEAD PROGRAMMER - 06/15/2023 2:33 PM EDT Chief Complaint [...] chronic back pain ROX Martinez 06/15/23 1537 documented in this [facility] Work Phone: 1(598) 812-359603-23-2024 Physician Emergency department Note* ROX Martinez - [...] of chronic back pain ROX Martinez 06/15/23 6617 [facility] Work Phone: 1(312) 146-129403-23-2024 Evaluation + Plan noteExtracted from: Title:ED Note [...] day(s), # 42 tab(s), Refills(s) 0, Pharmacy: [facility]/pharmacy #[id number], 160, cm, 06/15/23 18:08:00 EDT, Height/Length Dosing, 118.5, kg, 06/15/23 18:08:00 EDT, Weight Dosing orphenadrine, 60 mg = 2 mL, Injection, IntraMuscular, Once, Stop date 06/15/23 18:23:00 EDT, STAT, Start date 06/15/23 18:23:00 EDT, 06/15/23 18:23:00 EDT Future Appointments Appointment Date:07/17/2023 07:40:00 AM Scheduled Provider:Cheyanne Rincon Location:[facility] Appointment Type:FM New Patient - Adult [facility]03-19-2024 Hospital Discharge instructions Patient Education 06/11/2023 20:11:42 Chronic Back Pain, Pnaq-fu-Mljk Chronic Back Pain When back pain lasts [...] pull them backward. 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 [...] prescription pain medicine, or muscle relaxants. Take nhhw-eou-kdyorrq and prescription medicines only as told by your doctor. Ask your doctor if the medicine prescribed to you: ?Requires you to avoid driving or using machinery. ?Can cause trouble pooping (constipation). You may need to take these actions to prevent or treat trouble pooping: ?Drink enough fluid to keep your pee (urine) pale yellow. ?Take kzvc-ope-cqiffbv or prescription medicines. ?Eat foods that are [...] provider. Document Revised: 04/20/2020 Document Reviewed: 04/20/2020 [employer] Patient Education 2022 [employer]. Follow Up Care 06/11/2023 18:49:29 With:Cheyanne Rosas Address: [facility] [place], [facility] [place] [phone] [facility] (1) When:06/14/2023 19:30:55 Comments:Take the steroids once daily and to complete the course. Use medications as prescribed as needed for pain. Please follow-up with your primary care doctor next 2 to 3 days. Please return to the ED forany new or worsening symptoms. [facility]03-19-2024 Evaluation + Plan noteExtracted from: Title:ED [...] day(s), # 9 tab(s), Refills(s) 0, Pharmacy: [facility]/pharmacy #[id number], 160, cm, 06/11/23 19:00:00 EDT, Height/Length Dosing, 118.8, kg, 06/11/23 19:00:00 EDT, Weight Dosing morphine, 2 mg = 1 mL, Injection, IntraMuscular, Once, Stop date 06/11/23 19:29:00 EDT, STAT, Start date 06/11/23 19:29:00 EDT, 06/11/23 19:29:00 EDT predniSONE, 50 mg = 1 tab(s), Oral, Daily, X 5 day(s), # 5 tab(s), Refills(s) 0, Pharmacy: [facility]/pharmacy #[id number], 160, cm, 06/11/23 19:00:00 EDT, Height/Length Dosing, 118.8, kg, 06/11/23 19:00:00 EDT, Weight Dosing predniSONE, 60 mg = 3 tab(s), Tab, Oral, Once, Stop date 06/11/23 19:29:00 EDT, STAT, Start date 06/11/23 19:29:00 EDT, 06/11/23 19:29:00 EDT Future Appointments Appointment Date:07/17/2023 07:40:00 AM Scheduled Provider:Cheyanne Rincon Location:[facility] Appointment Type:FM New Patient - Adult [facility]03-16-2024 Emergency department Note* Munira Perez RN - 06/08/2023 6:29 PM EDT Registration called for registration as pt has been up for discharge for 20 min. [id number] Emergency department Note* Munira Perez RN - [...] Discussed with attending who did evaluate patient vhkj-ph-vexf, developed plan for pain control here, will be given fentanyl dose here with Zofran. Being prescription for Percocet. Encourage rest hydration outpatient follow-up as discussed, close return precautions if symptoms get worse. Did discuss with attending, Allyson Nicole DO, who did evaluate patient xpbm-sy-xcnq. Patient otherwise stable at this time, vital [...] aggravated her pain more. documented in this encounterMad[facility] [id number] Hospital Discharge instructions* Discharge Instructions* Flex Jansen PA-C - 06/08/2023 5:58 PM EDT Medication as directed, beware may cause drowsiness. Rest and hydrate, follow-up with your doctors in the next few days, return as needed. * Attachments The following attachments cannot be sent through Care Everywhere. * Back Pain ([place]) documented in this encounterMadison [id number] Physician Emergency department Note* Flex Jansen PA-C [...] Discussed with attending who did evaluate patient utkg-jw-bvud, developed plan for pain control here, will be given fentanyl dose here with Zofran. Being prescription for Percocet. Encourage rest hydration outpatient follow-up as discussed, close return precautions if symptoms get worse. Did discuss with attending, Allyson Nicole DO, who did evaluate patient zggm-bz-qaxv. Patient otherwise stable at this time, vital signs are stable, patient afebrile, and nontoxic in appearance.Attending physician available for immediate consultation throughout entire patient's stay. Decision to Disposition Home or Admit: Discharge FINAL IMPRESSION: 1. Bilateral low back pain [id number] Emergency department Note* Cheryl Joiner RN - 06/08/2023 5:39 PM EDT Pt arrives via triage for complaints of lower back apin. Pt states she has hx of bulging disc and states that she was in the car for a long time and thinks that it aggravated her pain more. [facility] [id number] History of Present illness Narrative* Elke Adams [...] y.o. female with HCV (in setting of mcfp opioid use) and depression,with longstanding back and LLE pain, referred by Dr. Harman for consideration of spinal cord stimulation. Patient was evaluated by Dr. Harman in December 2022 for her symptoms, who [...] practice, but she would like a more mcfp solution to her pain, and she is also scheduled to establish with a new physician. Patient was evaluated by neurosurgery, Dr. Harman, in 12/2022 and surgery was not recommended [...] significant central canal narrowing. documented in this [facility] Work Phone: 1(853) 360-202203-11-2024 Hospital Discharge instructions Patient Education 06/03/2023 20:00:59 [...] home: Managing pain, stiffness, and swelling Take lknp-tol-rirmgto and prescription medicines only as told by [...] each day. Do not sit, drive, or hvac design engineer one place for more than 30 minutes [...] put less stress on your back. Take xyys-rxw-qjhtwyr and prescription medicines only as told by your health care provider, and apply heat or ice as told. This information is not intended to replace advice given to you by your health care provider. Make sure you discuss any questions you have with your health care provider. Document Revised: 06/02/2021 Document Reviewed: 06/02/2021 [employer] Patient Education 2022 [employer]. 06/03/2023 20:00:59 Chronic Back Pain, Oiwf-bx-Irch Chronic Back Pain When back pain lasts [...] pull them backward. 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 [...] prescription pain medicine, or muscle relaxants. Take tnob-llv-gbjxfzi and prescription medicines only as told by your doctor. Ask your doctor if the medicine prescribed to you: ?Requires you to avoid driving or using machinery. ?Can cause trouble pooping (constipation). You may need to take these actions to prevent or treat trouble pooping: ?Drink enough fluid to keep your pee (urine) pale yellow. ?Take ukwh-nbl-nfmgiwb or prescription medicines. ?Eat foods that are [...] provider. Document Revised: 04/20/2020 Document Reviewed: 04/20/2020 [employer] Patient Education 2022 [employer]. Follow Up Care 06/03/2023 18:58:41 With:Cheyanne Rosas Address: [address] [place] [address] [address] Business (1) When:06/06/2023 19:33:42 Comments:Follow-up with your primary care provider in 3 to 5 days. If symptoms worsen, do not improve, or new symptoms arise please report back to emergency department for further evaluation. [facility]03-11-2024 Evaluation + Plan noteExtracted from: Title:ED Note Author:Landon Tidwell PA-C te:06/03/23 Chronic back pain (M54.9: Do rsalgia, unspecified) Other chronic pain (G89.29: Other chronic pain) Orders: ibuprofen, 800 mg = 1 tab(s), Oral, q8hr, # 30 tab(s), Refills(s) 0, Pharmacy: [facility]/pharmacy #[id number], 160, cm, 03/23/23 12:50:00 EST, Height/Length [...] Hospital Appointment Type:FM New Patient - Adult [facility]03-08-2024 Hospital Discharge instructions Patient Education 05/31/2023 [...] Follow these instructions at home: Medicines Take ovbk-emt-fvmprua and prescription medicines only as told by [...] Watch your condition for any changes. Take fdzl-msz-ulssimt and prescription medicines only as told by [...] provider. Document Revised: 04/29/2020 Document Reviewed: 07/20/2019 [employer] Patient Education 2022 [employer]. Follow Up Care 05/31/2023 16:33:31 With:Cheyanne Rosas Address: [address], [facility] [place] [phone] Business (1) When:06/03/2023 18:09:48 [facility]03-03-2024 Hospital Discharge instructions Patient Education 05/26/2023 [...] Follow these instructions at home: Medicines Take ingq-xcn-nyiaprr and prescription medicines only as told by your health care provider. Ask your health care provider if the medicine prescribed to you: ?Requires you to avoid driving or using heavy machinery. ?Can cause constipation. You may need to take these actions to prevent or treat constipation: ?Drink enough fluid to keep your urine pale yellow. ?Take pcil-dvj-bhhfaly or prescription medicines. ?Eat foods that are [...] provider. Document Revised: 06/18/2022 Document Reviewed: 08/04/2019 [employer] Patient Education 2022 [employer] Follow Up Care 05/26/2023 19:25:03 With:Cheyanne Rincon FAM, MED Address: [facility] [place], [facility] A [address] [address]- When:05/29/2023 [facility]03-03-2024 Evaluation + Plan noteExtracted from: Title:ED Note Author:Susu Lamar PA-C Date :05/26/23 1. Lumbar strain (S39.012A: Strain of muscle, fascia and tendon of lower back, initial encounter) Ordered: tizanidine, 4 mg = 1 tab(s), Oral, q8hr, X 5 day(s), # 15 tab(s), Refills(s) 0, Pharmacy: [facility]/pharmacy #[id number], 160, cm, 05/26/23 19:39:00 EST, Height/Length [...] Hospital Appointment Type:FM New Patient - Adult [facility]03-01-2024 Hospital Discharge instructions Patient Education 05/24/2023 20:43:51 Chronic Back Pain, Jwda-nd-Pulc Chronic Back Pain When back pain lasts [...] pull them backward. 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 [...] prescription pain medicine, or muscle relaxants. Take fady-kuc-qkvnlxv and prescription medicines only as told by your doctor. Ask your doctor if the medicine prescribed to you: ?Requires you to avoid driving or using machinery. ?Can cause trouble pooping (constipation). You may need to take these actions to prevent or treat trouble pooping: ?Drink enough fluid to keep your pee (urine) pale yellow. ?Take wmvu-xof-akxaeht or prescription medicines. ?Eat foods that are [...] provider. Document Revised: 04/20/2020 Document Reviewed: 04/20/2020 [employer] Patient Education 2022 [employer]. Follow Up Care 05/24/2023 18:42:41 With:Cheyanne Rosas Address: [address] [place] [address] [place] [phone] Business (1) When:Within 3 Day(s) [facility]03-01-2024 Evaluation + Plan noteExtracted from: Title:ED [...] Hospital Appointment Type:FM New Patient - Adult [facility]02-26-2024 History of Present illness Narrative* Belkis Hernandez, DO - 05/20/2023 8:15 AM ESTAssociated Order(s): Hand / UE Inj/Asp: R thumb CMC Post-Procedure Diagnose(s): CMC arthritis History present illness: Patient presents today for evaluation status post mechanical fall down 2 stairs that occurred on 11 May 2023. She was walking the dog in the snow. She slipped and fell. Dvspx-drbl-zgaxbtcw and otherwise healthy. She describes right radial [...] called to verify the correctpatient, procedure, equipment, security support analyst and site/side marked as required. Patient was prepped and draped in the usual sterile fashion. documented in this [facility] Work Phone: 1(239) 241-144102-22-2024 Hospital Discharge instructions Patient Education 05/16/2023 17:04:02 [...] provider if you may use a hand cementer hand to strengthen your muscles. If your thumb feels stiff while you are exercising it, try doing the exercises while soaking your hand in warm water. General instructions Take kstx-fjw-kwkiqrs and prescription medicines only as told by [...] provider. Document Revised: 01/17/2021 Document Reviewed: 01/17/2021 [employer] Patient Education 2022 [employer]. 05/16/2023 17:04:02 Cast or Splint Care, Adult [...] on part of yourbody. General instructions Take yjml-jpt-rctaoau and prescription medicines only as told by [...] provider. Document Revised: 09/05/2021 Document Reviewed: 09/05/2021 [employer] Patient Education 2022 [employer]. Follow Up Care 05/16/2023 16:17:01 With:Cheyanne Rosas Address: [address], [facility] A [address] [address]- Business (1) When:05/19/2023 16:52:35 [facility]02-22-2024 Evaluation + Plan noteExtracted from: Title:ED [...] Hospital Appointment Type:FM New Patient - Adult [facility]02-20-2024 Hospital Discharge instructions Patient Education 05/14/2023 [...] Follow these instructions at home: Medicines Take zhdw-ynv-tuqwxte and prescription medicines only as told by [...] for Headache and Migraine Patients (CHAMP): headachemigraine.org [place] [employer]: [email or web address].org National Headache Foundation: headaches.org [...] provider. Document Revised: 04/27/2020 Document Reviewed: 04/27/2020 [employer] Patient Education 2022 PFI Acquisition. Follow Up Care 05/14/2023 10:21:04 With:Cheyanne Rosas Address: [address] [place] [address] [address]- Business (1) When:05/17/2023 11:54:32 [facility]02-18-2024 Evaluation + Plan noteExtracted from: Title:ED Note Author:Nikhil Tubbs DO Date: Wrist fracture (S62.109A: Fr acture of unspecified carpal bone, unspecified wrist, initial encounter for closed fracture) Ordered: oxycodone, 5 mg = 1 cap(s), Oral, q6hr, PRN Pain 8-10, # 9 cap(s), Refills(s) 0, Pharmacy: [facility]/pharmacy #[id number], 160, cm, 05/12/23 10:26:00 EST, Height/Length Dosing, 114.8, kg, 05/12/23 10:26:00 EST, Weight Dosing Orders: acetaminophen-oxycodone, 1 tab(s), Tab, Oral, Once, Stop date 05/12/23 10:41:00 EST, STAT, Start date 05/12/23 10:41:00 EST Future Appointments Appointment Date:06/13/2023 07:40:00 AM Scheduled Provider:Cheyanne Rincon Location:[facility] Appointment Type:FM New Patient - Adult [facility]02-18-2024 Hospital Discharge instructions Patient Education 05/12/2023 [...] is stable enough for you to begin jjyvu-aa-mqthza exercises. You may also be prescribed pain [...] cast, splint, or sling on yourwrist. Do kibqq-gs-lhsqzz exercises only as told by your health care provider or physical therapist. Medicines Take hiln-hju-nusdwje and prescription medicines only as told by your health care provider. Ask your health care provider if the medicine prescribed to you: ?Requires you to avoid driving or using machinery. ?Can cause constipation. You may need to take these actions to prevent or treat constipation: ?Drink enough fluid to keep your urine pale yellow. ?Take iahs-rgb-ersdubj or prescription medicines. ?Eat foods that are [...] provider. Document Revised: 06/21/2020 Document Reviewed: 06/21/2020 [employer] Patient Education 2022 PFI Acquisition. Follow Up Care 05/12/2023 10:19:15 With:Esvin Romero Address: [address] [place], [place] [address]j[place] [address]- [facility] (1) When:05/15/2023 10:42:26 Comments:Follow-up with Dr. Romero in office.Take oxycodone as prescribed. You may take the 5 mg oxycodone tablet on top of your baseline Percocet for breakthrough pain from your fracture. [facility]02-17-2024 Hospital Discharge instructions Patient Education 05/11/2023 17:37:45 Wrist Fracture Treated With Immobilization, Bwhd-qw-Misx Wrist Fracture Treated With Immobilization A wrist [...] has healed enough, you may begin doing hdokp-hj-rhigft exercises. Follow these instructions at home: If [...] splint, or sling on your wrist. Do obxro-pq-dautsq exercises only as told by your doctor. Medicines Take toam-gio-nidccdz and prescription medicines only as told by [...] provider. Document Revised: 06/21/2020 Document Reviewed: 06/21/2020 [employer] Patient Education 2022 PFI Acquisition. 05/11/2023 17:37:45 Cast or Splint Care, Adult, Kojk-wc-Zunu Cast or Splint Care, Adult Casts and [...] part of your body. General instructions Take idlg-siy-jscoxfp and prescription medicines only as told by [...] provider. Document Revised: 09/05/2021 Document Reviewed: 09/05/2021 [employer] Patient Education 2022 PFI Acquisition. Follow Up Care 05/11/2023 16:21:24 With:Esvin Romero Address: [address] [place], [place] [address] [address]- Business (1) When:05/14/2023 17:17:09 Comments:Call for diagnosis based follow up With:Cheyanne Rosas Address: [address], [address] [place] [phone] [employer] (1) When:05/14/2023 17:17:07 [facility]02-14-2024 Hospital Discharge instructions Patient Education 05/08/2023 13:05:53 Abdominal Pain, Adult, Pvto-nx-Cego Abdominal Pain, Adult Many things can cause belly (abdominal) pain. Most times, belly pain is not dangerous. Many cases of belly pain can be watched and treated at home. Sometimes, though, belly pain is serious. Your doctor will try to find the cause of your belly pain. Follow these instructions at home: Medicines Take cjrt-bsu-ezqrixf and prescription medicines only as told by [...] your belly pain for any changes. Take kbvb-zyf-mjjnemc and prescription medicines only as told by [...] provider. Document Revised: 07/20/2019 Document Reviewed: 07/20/2019 [employer] Patient Education 2022 PFI Acquisition. Follow Up Care 05/08/2023 11:25:27 With:Katharina Kidd Address: [address], [address] [facility] [address] [place] [address]- [phone] Business (1) When:05/11/2023 12:34:39 With:Cheyanne Rosas Address: [address], [address] [facility] [address] [place] [address]- Business (1) When:05/11/2023 12:34:31 Comments:Follow-up with your primary care provider in 3 to 5 days. If symptoms worsen, do not improve, or new symptoms arise please report back to emergency department for further evaluation. [facility]02-04-2024 Emergency department Note* Laurita Baires RN - 04/28/2023 12:39 AM EST Patient discharged to home, alert and oriented, skin warm, dry and pink. Denies needs and or questions. Will follow-up as directed, patient encouraged to return for worsening or new symptoms or otherconcerns. [id number] Emergency department Note* Laurita Baires RN - [...] injury or complaints. A&Ox4. documented in this encounterMadison [id number] Hospital Discharge instructions* Discharge Instructions* Sharan Hwang MD - 04/28/2023 12:28 AM EST Dear Jerad Tracy, Thank you for allowing me and the rest of the Emergency Department staff at the [facility] ED to care for you today. [...] can call your insurance company or call [facility] at [phone] for assistance in finding a doctor. If [...] assistance with paying for medications, please visit [email or web address].[employer]/ where you can find the best prices for prescription and pixf-ffr-ezapvcz medications. Wishing you a speedy recovery, Sharan Hwang MD documented in this encounterMadison [id number] Emergency department Note* Laurita Baires RN - 04/28/2023 12:24 AM EST Pt ambulated to restroom with steady gait. Pt states her pain has improved and is now 5/10 and tolerable. Physician aware. [id number] Emergency department Note* Laurita Baires RN - 04/27/2023 11:26 PM EST To bedside for rounding. Pt medicated for 10/10 pain per MAY. Pt resting quietly. No other needs expressed at this time. Call light in reach. [facility]02-03-2024 Emergency department Note* Laurita Baires RN - 04/27/2023 11:00 PM EST To bedside to introduce self to pt and address needs. Resident at bedside. Pt resting quietly. No needs expressed at this time. Call light within reach. [facility]02-03-2024 Physician Emergency department Note* Sharan Hwang MD [...] PHYSICAL EXAM VITAL SIGNS: ED Triage Vitals [04/27/230] Enc Vitals Group BP (!) 170/96 Pulse [...] as of 04/28/23 0030 Sun Apr 28, 20233 Patient's pain is improved, she will ambulate [...] Electronically signed by: Sharan Hwang MD, 04/28/2023 [id number] Emergency department Note* Rebecca Gómez RN - 04/27/2023 10:39 PM EST Patient arrives to triage stating she has a herniated L4-L5 disc, got on an inversion table tonightand is now having back pain. Denies any other injury or complaints. A&Ox4. [id number] Evaluation + Plan noteExtracted from: Title:ED Note Author:Annette Watkins, Balbina Celis te:04/26/23 1. Chronic back pain (M54.9: Dorsalgia, unspecified) Other chronic pain (G89.29: Other chronic pain) Orders: ibuprofen, 800 mg = 1 tab(s), Oral, TID, # 30 tab(s), Refills(s) 0, Pharmacy: [facility]/pharmacy #[id number], 160, cm, 04/26/23 9:34:00 EST, Height/Length Dosing, 114.3, kg, 04/26/23 9:34:00 EST, Weight Dosing ketorolac, 60 mg = 2 mL, Injection, IntraMuscular, Once, Stop date 04/26/23 9:37:00 EST, STAT, Start date 04/26/23 9:37:00 EST, 04/26/23 9:37:00 EST morphine, 4 mg = 1 mL, Injection, IntraMuscular, Once, Stop date 04/26/23 9:38:00 EST, STAT, Start date 04/26/23 9:38:00 EST, 04/26/23 9:38:00 EST [facility]02-02-2024 Hospital Discharge instructions Patient Education 04/26/2023 [...] pull them backward. 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 [...] prescription pain medicine, or muscle relaxants. Take ebys-dwo-fnsplxz and prescription medicines onlyas told by your health care provider. Ask your health care provider if the medicine prescribed to you: ?Requires you to avoid driving or using machinery. ?Can cause constipation. You may need to take these actions to prevent or treat constipation: ?Drink enough fluid to keep your urine pale yellow. ?Take rgsp-qhc-fxgqmge or prescription medicines. ?Eat foods that are [...] provider. Document Revised: 04/20/2020 Document Reviewed: 04/20/2020 [employer] Patient Education 2022 PFI Acquisition. Follow Up Care 04/26/2023 09:28:24 With:ANTONIO HUSAIN Address: [address] [place] [phone] [phone] Business (1) When:04/29/2023 10:05:29 Comments:Make sure to follow-up with your neurosurgeon as scheduled and your primary doctor. Return to the emergency room if your pain gets worse, bowel or bladder incontinence, numbness/tingling in the saddle/groin area, weakness in your leg or any new symptoms. [facility]01-29-2024 Hospital Discharge instructions Patient Education 04/22/2023 [...] home: Managing pain, stiffness, and swelling Take rfvk-ffg-egkqwro and prescription medicines only as told by [...] each day. Do not sit, drive, or hvac design engineer one place for more than 30 minutes [...] put less stress on your back. Take pdjf-wbx-ooewfsx and prescription medicines only as told by your health care provider, and apply heat or ice as told. This information is not intended to replace advice given to you by your health care provider. Make sure you discuss any questions you have with your health care provider. Document Revised: 06/02/2021 Document Reviewed: 06/02/2021 [employer] Patient Education 2022 PFI Acquisition. 04/22/2023 20:37:29 Chronic Back Pain, Rqbj-et-Ukof Chronic Back Pain When back pain lasts [...] pull them backward. 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 [...] prescription pain medicine, or muscle relaxants. Take jqyh-fsp-bbjfzgy and prescription medicines only as told by your doctor. Ask your doctor if the medicine prescribed to you: ?Requires you to avoid driving or using machinery. ?Can cause trouble pooping (constipation). You may need to take these actions to prevent or treat trouble pooping: ?Drink enough fluid to keep your pee (urine) pale yellow. ?Take onvx-rou-cqdcoat or prescription medicines. ?Eat foods that are [...] provider. Document Revised: 04/20/2020 Document Reviewed: 04/20/2020 [employer] Patient Education 2022 PFI Acquisition. Follow Up Care 04/22/2023 20:10:10 With:ANTONIO HUSAIN Address: [address] [place] [phone]- [phone] Business (1) When:04/25/2023 20:23:39 Comments:Follow-up with your primary care provider in 3 to 5 days. If symptoms worsen, do not improve, or new symptoms arise please report back to emergency department for further evaluation. [facility]01-29-2024 Evaluation + Plan noteExtracted from: Title:ED [...] date 04/22/23 20:19:00 EST, 04/22/23 20:19:00 EST [facility]01-18-2024 Hospital Discharge instructions Patient Education 04/11/2023 [...] pull them backward. 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 [...] prescription pain medicine, or muscle relaxants. Take xukg-dxc-cfwaots and prescription medicines onlyas told by your health care provider. Ask your health care provider if the medicine prescribed to you: ?Requires you to avoid driving or using machinery. ?Can cause constipation. You may need to take these actions to prevent or treat constipation: ?Drink enough fluid to keep your urine pale yellow. ?Take spaa-uzd-zwiejha or prescription medicines. ?Eat foods that are [...] provider. Document Revised: 04/20/2020 Document Reviewed: 04/20/2020 [employer] Patient Education 2022 PFI Acquisition. Follow Up Care 04/11/2023 18:29:24 With:ANTONIO HUSAIN Address: [address] [place] [phone] Business (1) When:04/14/2023 18:58:52 [facility]01-18-2024 Evaluation + Plan noteExtracted from: Title:ED [...] date 04/11/23 18:57:00 EST, 04/11/23 18:57:00 EST [facility]01-18-2024 Hospital Discharge instructions Patient Education 04/11/2023 01:37:11 Chronic Back Pain, Gqfp-zu-Oric Chronic Back Pain When back pain lasts [...] pull them backward. 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 [...] prescription pain medicine, or muscle relaxants. Take ucqg-nsn-patlaup and prescription medicines only as told by your doctor. Ask your doctor if the medicine prescribed to you: ?Requires you to avoid driving or using machinery. ?Can cause trouble pooping (constipation). You may need to take these actions to prevent or treat trouble pooping: ?Drink enough fluid to keep your pee (urine) pale yellow. ?Take avwl-auo-cyjsana or prescription medicines. ?Eat foods that are [...] provider. Document Revised: 04/20/2020 Document Reviewed: 04/20/2020 [employer] Patient Education 2022 PFI Acquisition. 04/11/2023 01:37:11 Acute Back Pain, Adult Acute [...] home: Managing pain, stiffness, and swelling Take lfmu-dhd-gnupyfa and prescription medicines only as told by [...] each day. Do not sit, drive, or hvac design engineer one place for more than 30 minutes [...] put less stress on your back. Take ossa-nnd-itowivr and prescription medicines only as told by your health care provider, and apply heat or ice as told. This information is not intended to replace advice given to you by your health care provider. Make sure you discuss any questions you have with your health care provider. Document Revised: 06/02/2021 Document Reviewed: 06/02/2021 [employer] Patient Education 2022 PFI Acquisition. Follow Up Care 04/10/2023 22:03:35 With:ANTONIO HUSAIN Address: [address] [place] [phone] [phone] Business (1) When:Within 3 Day(s) [facility]01-12-2024 Hospital Discharge instructions Patient Education 04/05/2023 [...] organ transplant that was done in the [facility] before 1991. What increases the risk? The [...] Follow these instructions at home: Medicines Take ttpf-ufg-gsikvnp and prescription medicines only as told by your health care provider. If you were prescribed an antiviral medicine, take it as told by your health care provider. Do not stop using the antiviral even if you start to feel better. Do not take any new medicines, including sibr-gkl-cnwlets medicines or supplements, unless your health care [...] water are not available, use alcohol-based hand regulator mechanic. Cover any cuts or open sores on [...] contagious). Do not take any medicines, including ulim-dml-tvaeurj medicines or supplements, unless your health care provider approves. This information is not intended to replace advice given to you by your health care provider. Make sure you discuss any questions you have with your health care provider. Document Revised: 01/26/2021 Document Reviewed: 01/26/2021 [employer] Patient Education 2022 PFI Acquisition. 04/05/2023 15:51:34 Abdominal Pain, Adult Abdominal Pain, [...] Follow these instructions at home: Medicines Take gsrd-alm-zsdfgtr and prescription medicines only as told by [...] Watch your condition for any changes. Take jgbo-pzw-fgdhlbt and prescription medicines only as told by [...] provider. Document Revised: 04/29/2020 Document Reviewed: 07/20/2019 [employer] Patient Education 2022 PFI Acquisition. Follow Up Care 04/05/2023 12:31:48 With:ANTONIO HUSAIN Address: [address] [place] [phone]- [phone] Business (1) When:04/08/2023 15:38:51 [facility]01-12-2024 Evaluation + Plan noteExtracted from: Title:ED [...] date 04/05/23 13:07:00 EST, 04/05/23 13:07:00 EST [facility]01-10-2024 Hospital Discharge instructions Patient Education 04/02/2023 22:19:34 Chronic Back Pain, Zlyz-rz-Jwhi Chronic Back Pain When back pain lasts [...] pull them backward. 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 [...] prescription pain medicine, or muscle relaxants. Take waxq-tnb-zuobega and prescription medicines only as told by your doctor. Ask your doctor if the medicine prescribed to you: ?Requires you to avoid driving or using machinery. ?Can cause trouble pooping (constipation). You may need to take these actions to prevent or treat trouble pooping: ?Drink enough fluid to keep your pee (urine) pale yellow. ?Take nkkw-qge-eodljrv or prescription medicines. ?Eat foods that are [...] provider. Document Revised: 04/20/2020 Document Reviewed: 04/20/2020 [employer] Patient Education 2022 PFI Acquisition. 04/02/2023 22:19:34 Back Exercises, Vnzv-kx-Tbgm Back Exercises These exercises help to make [...] provider. Document Revised: 05/24/2021 Document Reviewed: 05/24/2021 [employer] Patient Education 2022 PFI Acquisition. Follow Up Care 04/02/2023 21:42:13 With:ANTONIO HUSAIN Address: [address] [place] [phone]- [phone] Business (1) When:04/05/2023 21:59:55 Comments:You can take the naproxen every 12 hours as needed for for pain you can use the Robaxin every 8 hours as needed for pain. Please follow-up with your primary care doctor next 2 to 3 days. Please return to the ED for any new or worsening symptoms. [facility]01-09-2024 Evaluation + Plan noteExtracted from: Title:ED [...] day(s), # 9 tab(s), Refills(s) 0, Pharmacy: [facility]/pharmacy #[id number], 160, cm, 04/02/23 21:48:00 EST, Height/Length Dosing, 110, kg, 04/02/23 21:48:00 EST, Weight Dosing naproxen, 500 mg = 1 tab(s), Oral, BID, PRN for pain, # 20 tab(s), Refills(s) 0, Pharmacy: [facility]/pharmacy #[id number], 160, cm, 04/02/23 21:48:00 EST, Height/Length Dosing, 110, kg, 04/02/23 21:48:00 EST, Weight Dosing orphenadrine, 60 mg = 2 mL, Injection, IntraMuscular, Once, Stop date 04/02/23 21:58:00 EST, STAT, Start date 04/02/23 21:58:00 EST, 04/02/23 21:58:00 EST oxycodone, 5 mg = 1 tab(s), Tab, Oral, Once, Stop date 04/02/23 21:59:00 EST, STAT, Start date 04/02/23 21:59:00 EST, 04/02/23 21:59:00 EST [facility]01-08-2024 Evaluation + Plan note* Assessment & [...] will see this patient in 6 weeks [facility] Work Phone: 1(158) 945-267801-08-2024 Miscellaneous Notes* Assessment & Plan Note - [...] patient in 6 weeks [facility] Work Phone: 1(298) 963-468801-08-2024 History of Present illness Narrative* Chidi Joseph [...] HBVDNAQNPCRL , HBVDNAPCR No results found for: EGXD154 , NYFU935 === 02/13/23 === US ABDOMEN LIMITED LIVER - Impression - No focal intrahepatic lesions noted. The patient is status post cholecystectomy. MACRO: None Signed by: Harshad Tran 02/14/2023 7:30 AM Dictation workstation: [id number] Chronic hepatitis C without hepatic coma (CMS/HCC) [...] patient in 6 weeks documented in this [facility] Work Phone: 1(356) 760-599001-08-2024 Instructions* Patient Instructions* Elke Haas RN - 04/01/2023 8:20 AM EST [phone] (See below for department name when scheduling) [...] at the following locations: [facility], [facility], [facility]. YOU SHOULD NOT EAT OR DRINK 3 HOURS BEFORE THE EXAM. [x] FOLLOW UP (Department Gastro): due date : 6 Week If you have any questions or need assistance, please don't hesitate to contact us. Dr. Joseph: Office [phone] Hepatology Nurse Coordinator: Elke SEXTON [phone] documented in this [facility] Work Phone: 1(645) 733-858801-02-2024 Hospital Discharge instructions Patient Education 03/26/2023 12:45:13 [...] Follow these instructions at home: Medicines Take cqkg-elj-fppsdgk and prescription medicines only as told by your health care provider. Ask your health care provider if the medicine prescribed to you: ?Requires you to avoid driving or using heavy machinery. ?Can cause constipation. You may need to take these actions to prevent or treat constipation: ?Drink enough fluid to keep your urine pale yellow. ?Take dsot-gzo-adahvsy or prescription medicines. ?Eat foods that are [...] provider. Document Revised: 07/03/2019 Document Reviewed: 04/23/2019 [employer] Patient Education 2022 [employer] Acquisition. Follow Up Care 03/26/2023 10:48:18 With:ANTONIO HUSAIN Address: [address] [place] [phone] [phone] Business (1) When:Within 3 Day(s) [facility]01-02-2024 Evaluation + Plan noteExtracted from: Title:ED [...] day(s), # 15 tab(s), Refills(s) 0, Pharmacy: [facility]/pharmacy #[id number], 160, cm, 03/26/23 10:58:00 EST, Height/Length [...] 03/26/23 11:06:00 EST, Infuse over 61, minute(s) [facility]12-30-2023 Hospital Discharge instructions Patient Education 03/23/2023 [...] home: Managing pain, stiffness, and swelling Take lnwo-fhs-zslstyc and prescription medicines only as told by [...] each day. Do not sit, drive, or hvac design engineer one place for more than 30 minutes [...] put less stress on your back. Take ptpf-ivp-gbbjiyl and prescription medicines only as told by your health care provider, and apply heat or ice as told. This information is not intended to replace advice given to you by your health care provider. Make sure you discuss any questions you have with your health care provider. Document Revised: 06/02/2021 Document Reviewed: 06/02/2021 [employer] Patient Education 2022 [employer] Acquisition. 03/23/2023 13:57:23 Chronic Back Pain, Hius-uf-Husv Chronic Back Pain When back pain lasts [...] pull them backward. 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 [...] prescription pain medicine, or muscle relaxants. Take rnws-zvk-etgyafe and prescription medicines only as told by your doctor. Ask your doctor if the medicine prescribed to you: ?Requires you to avoid driving or using machinery. ?Can cause trouble pooping (constipation). You may need to take these actions to prevent or treat trouble pooping: ?Drink enough fluid to keep your pee (urine) pale yellow. ?Take gmbd-wjm-tmxkyej or prescription medicines. ?Eat foods that are [...] provider. Document Revised: 04/20/2020 Document Reviewed: 04/20/2020 [employer] Patient Education 2022 [employer] Acquisition. 03/23/2023 13:57:23 Back Exercises, Jkft-df-Yyxt Back Exercises These exercises help to make [...] provider. Document Revised: 05/24/2021 Document Reviewed: 05/24/2021 [employer] Patient Education 2022 [employer] Acquisition. Follow Up Care 03/23/2023 12:41:35 With:Pain Clinic: [facility] [phone] Address:Unknown When:03/26/2023 13:05:55 With:ANTONIO HUSAIN Address: [address] [place] [phone] [phone] Business (1) When:03/26/2023 13:05:48 Comments:Follow-up with your primary care provider in 3 to 5 days. If symptoms worsen, do not improve, or new symptoms arise please report back to emergency department for further evaluation. [facility]12-30-2023 Evaluation + Plan noteExtracted from: Title:ED Note Author:Landon Tidwell PA-C te:03/23/23 Chronic back pain (M54.9: Do rsalgia, unspecified) Other chronic pain (G89.29: Other chronic pain) Orders: ibuprofen, 800 mg = 1 tab(s), Oral, q8hr, # 30 tab(s), Refills(s) 0, Pharmacy: [facility]/pharmacy #[id number], 160, cm, 03/23/23 12:50:00 EST, Height/Length [...] date 03/23/23 13:03:00 EST, 03/23/23 13:03:00 EST [facility]12-27-2023 Hospital Discharge instructions Patient Education 03/20/2023 [...] pull them backward. 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 [...] prescription pain medicine, or muscle relaxants. Take gjfm-lum-lhegyrv and prescription medicines onlyas told by your health care provider. Ask your health care provider if the medicine prescribed to you: ?Requires you to avoid driving or using machinery. ?Can cause constipation. You may need to take these actions to prevent or treat constipation: ?Drink enough fluid to keep your urine pale yellow. ?Take nqyz-pxx-wmddzqf or prescription medicines. ?Eat foods that are [...] provider. Document Revised: 04/20/2020 Document Reviewed: 04/20/2020 [employer] Patient Education 2022 [employer]. 03/20/2023 13:38:51 Acute Pain, Adult Acute Pain, [...] Follow these instructions at home: Medicines Take byrk-eej-gwygyri and prescription medicines only as told by [...] pain is severe. ?Do not take other kytw-dxx-oecfgkm pain medicines in addition to prescription pain [...] grains, and fresh fruits and vegetables. ?Take owkt-knd-wqxuzyo or prescription medicines. ?Limit foods that are [...] or you are no longer ill. Take pinr-kdz-vdnmfsw and prescription medicines only as told by [...] provider. Document Revised: 07/26/2022 Document Reviewed: 07/27/2019 [employer] Patient Education 2022 [employer]. 03/20/2023 13:38:51 Radicular Pain Radicular Pain Radicular [...] knees and rising up. Do strength and vxjch-ub-wxmyyj exercises only as told by your health care provider or physical therapist. General instructions Take rcmp-bah-jhsougl and prescription medicines only as told by [...] provider. Document Revised: 09/14/2021 Document Reviewed: 09/14/2021 [employer] Patient Education 2022 [employer]quisition. Follow Up Care 03/20/2023 12:42:50 With:ANTONIO HUSAIN Address: [address] [place] [phone] Business (1) When:03/23/2023 13:25:02 Comments:Follow-up with your primary care provider in 3 to 5 days. If symptoms worsen, do not improve, or new symptoms arise please report back to emergency department for further evaluation. [facility]12-27-2023 Evaluation + Plan noteExtracted from: Title:ED [...] date 03/20/23 13:21:00 EST, 03/20/23 13:21:00 EST [facility]12-18-2023 Evaluation + Plan noteExtracted from: Title:ED [...] Function Panel Lipase Level Rapid [place] [place] [facility]12-18-2023 Hospital Discharge instructions Follow Up Care 03/11/2023 08:57:16 With:ANTONIO HUSAIN Address: [address] [place] [phone] Business (1) When:Within 3 Day(s) [facility]11-21-2023 Hospital Discharge instructions Patient Education 02/12/2023 [...] pull them backward. 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 [...] prescription pain medicine, or muscle relaxants. Take pqtb-dxj-gogjqnm and prescription medicines onlyas told by your health care provider. Ask your health care provider if the medicine prescribed to you: ?Requires you to avoid driving or using machinery. ?Can cause constipation. You may need to take these actions to prevent or treat constipation: ?Drink enough fluid to keep your urine pale yellow. ?Take axor-ifn-yinbzwx or prescription medicines. ?Eat foods that are [...] provider. Document Revised: 04/20/2020 Document Reviewed: 04/20/2020 [employer] Patient Education 2022 [employer]quisition. Follow Up Care 02/12/2023 19:28:18 With:DALTON JAMES Address: [place] [address] [place] [address] Business (1) When:02/15/2023 20:41:14 [facility]11-21-2023 Evaluation + Plan noteExtracted from: Title:ED [...] date 02/12/23 20:39:00 EST, 02/12/23 20:39:00 EST [facility]11-16-2023 Hospital Discharge instructions Patient Education 02/07/2023 20:30:36 Chronic Back Pain, Phqm-lr-Nrvl Chronic Back Pain When back pain lasts [...] pull them backward. 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 [...] prescription pain medicine, or muscle relaxants. Take ryzz-vll-bypktni and prescription medicines only as told by your doctor. Ask your doctor if the medicine prescribed to you: ?Requires you to avoid driving or using machinery. ?Can cause trouble pooping (constipation). You may need to take these actions to prevent or treat trouble pooping: ?Drink enough fluid to keep your pee (urine) pale yellow. ?Take jywb-ogg-qfqeoqc or prescription medicines. ?Eat foods that are [...] provider. Document Revised: 04/20/2020 Document Reviewed: 04/20/2020 [employer] Patient Education 2022 [employer]quisition. 02/07/2023 20:30:36 Back Exercises, Fcik-nd-Pmyf Back Exercises These exercises help to make [...] provider. Document Revised: 05/24/2021 Document Reviewed: 05/24/2021 [employer] Patient Education 2022 [employer]. Follow Up Care 02/07/2023 19:11:26 With:Declan COLVIN Address: [address] [place] [phone]- [facility] (1) When:02/10/2023 19:59:42 Comments:Take the steroids once daily until you have completed the course. You can use the anti-inflammatory, muscle relaxers as prescribed as needed for pain. Please follow-up with your primary care doctor in addition to spine doctor for further evaluation and management. With:XXXX NONE Address: [place] When:Within 3 Day(s) [facility]11-07-2023 Hospital Discharge instructions Patient Education 01/29/2023 [...] Follow these instructions at home: Medicines Take eznz-nxh-vjgtaua and prescription medicines only as told by your health care provider. Ask your health care provider if the medicine prescribed to you: ?Requires you to avoid driving or using machinery. ?Can cause constipation. You may need to take these actions to prevent or treat constipation: ?Drink enough fluid to keep your urine pale yellow. ?Take pcfq-aii-lnsvlsn or prescription medicines. ?Eat foods that are [...] department or: Call your local emergency services (541 in the [place] Call a suicide crisis helpline, such as the National Suicide Prevention Lifeline at or 170 in the [place] This is open 24 hours a day in the [place] Text the Crisis Text Line at 840182 (in the [place] Summary Chronic pain is [...] provider. Document Revised: 10/04/2021 Document Reviewed: 11/26/2019 [employer] Patient Education 2022 [employer]. Follow Up Care 01/29/2023 11:30:42 With:Luís Mar Address: Pain Management [address] [place] [phone] [facility] (1) When:02/01/2023 12:09:50 [facility]10-31-2023 Hospital Discharge instructions Patient Education 01/22/2023 19:37:08 Chronic Back Pain, Whir-yt-Qvkm Chronic Back Pain When back pain lasts [...] pull them backward. 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 [...] prescription pain medicine, or muscle relaxants. Take wksy-pir-onmmhfz and prescription medicines only as told by your doctor. Ask your doctor if the medicine prescribed to you: ?Requires you to avoid driving or using machinery. ?Can cause trouble pooping (constipation). You may need to take these actions to prevent or treat trouble pooping: ?Drink enough fluid to keep your pee (urine) pale yellow. ?Take qgpk-nbq-jfoegry or prescription medicines. ?Eat foods that are [...] provider. Document Revised: 04/20/2020 Document Reviewed: 04/20/2020 [employer] Patient Education 2022 [employer] Acquisition. Follow Up Care 01/22/2023 18:45:34 With:Peña Salazar Address: [address] [place] [phone] Business (1) When:01/25/2023 19:09:36 Comments:Follow-up with your primary care provider in 3 to 5 days. If symptoms worsen, do not improve, or new symptoms arise please report back to emergency department for further evaluation. [facility]10-31-2023 Evaluation + Plan noteExtracted from: Title:ED [...] date 01/22/23 19:08:00 EDT, 01/22/23 19:08:00 EDT [facility]10-31-2023 History of Present illness Narrative* Jori Harman MD PhD - 01/22/2023 1:30 PM EDT It was a pleasure to see Ms. Tracy at the [facility] at [facility]. Patient is a 47 year old [...] All questions were answered. documented in this [facility] Work Phone: [phone] History of Present illness Narrative* Antonio Husain PA-C - 01/15/2023 1:10 PM EDT Subjective Patient ID: Jerad Tracy is a 47 y.o. female who presents for [facility] (Patient transferring Care form [place], [place], last seen by PCP 3 months ago./Colonoscopy done 04/2022 and bone density done 10/2022 at [facility], mammogram scheduled for 01-17-23 and Pap done over 5 years.) and Weight Loss (Patient would like to discuss weight loss options.). HPI Patient presents to [facility]. Patient has medical history of depression, [...] some time and was previously seen in [place] by neurosurgery. Patient reports inability to get [...] Controlled substance agreement signed documented in this [facility] Work Phone: [phone] 550-154610-23-2023 Hospital Discharge instructions Patient Education 01/14/2023 15:50:08 [...] pull them backward. 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 [...] prescription pain medicine, or muscle relaxants. Take hell-oqd-udfvkre and prescription medicines onlyas told by your health care provider. Ask your health care provider if the medicine prescribed to you: ?Requires you to avoid driving or using machinery. ?Can cause constipation. You may need to take these actions to prevent or treat constipation: ?Drink enough fluid to keep your urine pale yellow. ?Take ublw-oky-mpwqqmy or prescription medicines. ?Eat foods that are [...] provider. Document Revised: 04/20/2020 Document Reviewed: 04/20/2020 [employer] Patient Education 2022 [employer]quisition. 01/14/2023 15:50:08 Back Exercises, Wwcq-km-Vnlg Back Exercises These exercises help to make [...] provider. Document Revised: 05/24/2021 Document Reviewed: 05/24/2021 [employer] Patient Education 2022 [employer] Follow Up Care 01/14/2023 14:32:06 With:Domenic Sher Address: [address] [place], [place] [address] [address] [facility] (1) When:01/17/2023 15:23:38 [facility]10-23-2023 Evaluation + Plan noteExtracted from: Title:ED Note Author:Eden Salomon ate:01/14/23 Chronic back pain (M54.9: Do rsalgia, unspecified) [facility]10-21-2023 Hospital Discharge instructions Patient Education 01/12/2023 [...] home: Managing pain, stiffness, and swelling Take xhyr-hkb-wrrzlgn and prescription medicines only as told by [...] each day. Do not sit, drive, or hvac design engineer one place for more than 30 minutes [...] put less stress on your back. Take hkiq-qfw-jhvprec and prescription medicines only as told by your health care provider, and apply heat or ice as told. This information is not intended to replace advice given to you by your health care provider. Make sure you discuss any questions you have with your health care provider. Document Revised: 06/02/2021 Document Reviewed: 06/02/2021 [employer] Patient Education 2022 [employer]quisition. 01/12/2023 21:42:49 Contusion Contusion A contusion is [...] sitting or lying down. General instructions Take lpey-rlf-ytyqpqu and prescription medicines only as told by [...] compression, and elevation. You may be given fyii-tge-idragcv medicines for pain. Contact a health care [...] provider. Document Revised: 01/23/2022 Document Reviewed: 01/04/2022 [employer] Patient Education 2022 [employer] Acquisition. Follow Up Care 01/12/2023 20:23:40 With:Alondra PHOENIX Address: [address] [place] [phone]- Business (1) When:01/15/2023 21:37:43 Comments:Return to the emergency room if your pain gets worse or any new symptoms. [facility]10-21-2023 Evaluation + Plan noteExtracted from: Title:ED [...] XR Spine Lumbosacral 2 or 3 Views [facility]10-19-2023 Evaluation + Plan noteExtracted from: Title:ED [...] day(s), # 21 tab(s), Refills(s) 0, Pharmacy: [facility]/pharmacy #[id number], 160, cm, 01/10/23 10:36:00 EDT, Height/Length Dosing, 115.7, kg, 01/10/23 10:36:00 EDT, Weight Dosing morphine, 4 mg = 2 mL, Injection, IntraMuscular, Once, Stop date 01/10/23 11:37:00 EDT, STAT, Start date 01/10/23 11:37:00 EDT, 01/10/23 11:37:00 EDT [facility]10-19-2023 Evaluation note* Encounter Date Diagnosis Assessment [...] would like to go back to the [facility] and does not like coming all the way out to [place] for the pain management. Dec, Lumbosacral spondylosis (ICD-10 - M47.817) Dec, Chronic pain (ICD-10 - G89.29) [facility] Other 10-19-2023 Hospital Discharge instructions Patient Education [...] home: Managing pain, stiffness, and swelling Take ejic-cop-kdlzpoa and prescription medicines only as told by [...] each day. Do not sit, drive, or hvac design engineer one place for more than 30 minutes [...] put less stress on your back. Take xgec-nky-bjmurds and prescription medicines only as told by your health care provider, and apply heat or ice as told. This information is not intended to replace advice given to you by your health care provider. Make sure you discuss any questions you have with your health care provider. Document Revised: 06/02/2021 Document Reviewed: 06/02/2021 [employer] Patient Education 2022 [employer]quisition. Follow Up Care 01/10/2023 10:31:11 With:Joe Meza Address: [address] [place] [phone]- Business (1) When:01/13/2023 11:35:28 Comments:Call the office [...] breath, or any new or worsening symptoms. [facility]10-15-2023 Hospital Discharge instructions Additional Instructions Take medication as prescribed Follow-up with the doctor as scheduled this week Return to the ER for worsening pain fever weakness in her legs loss of bladder bowel control or any [facility] Work Phone: [phone] Hospital Discharge instructions Additional Instructions Keep follow up appointment with [facility] neurosurgery this week. She is uncertain of the name of the provider she is seeing. She was referred to the [facility] last week by Dr. Meza. [facility] Work Phone: [phone] Evaluation + Plan noteExtracted from: Title:ED Note [...] BID, # 20 tab(s), Refills(s) 0, Pharmacy: [facility]/pharmacy #[id number], 160, cm, 01/04/23 21:16:00 EDT, Height/Length Dosing, 114.7, kg, 01/04/23 21:16:00 EDT, Weight Dosing orphenadrine, 60 mg = 2 mL, Injection, IntraMuscular, Once, Stop date 01/04/23 21:39:00 EDT, STAT, Start date 01/04/23 21:39:00 EDT, 01/04/23 21:39:[address] Spine Lumbar w/o Contrast XR Hip 2-3 Views Left + Pelvis [facility]10-14-2023 Hospital Discharge instructions Patient Education 01/05/2023 [...] Follow these instructions at home: Medicines Take ejor-hem-qczqrmi and prescription medicines only as told by your health care provider. Ask your health care provider if the medicine prescribed to you: ?Requires you to avoid driving or using heavy machinery. ?Can cause constipation. You may need to take these actions to prevent or treat constipation: ?Drink enough fluid to keep your urine pale yellow. ?Take buum-ovf-wwmdtin or prescription medicines. ?Eat foods that are [...] provider. Document Revised: 06/29/2020 Document Reviewed: 06/29/2020 [employer] Patient Education 2022 [employer]quisition. 01/05/2023 00:38:20 Contusion Contusion A contusion is [...] sitting or lying down. General instructions Take sprs-shx-jbdgjrt and prescription medicines only as told by [...] compression, and elevation. You may be given oyil-iwi-hywcslz medicines for pain. Contact a health care [...] provider. Document Revised: 01/23/2022 Document Reviewed: 01/04/2022 [employer] Patient Education 2022 [employer]quisition. Follow Up Care 01/04/2023 21:05:36 With:Joe Meza Address: [address] [place], [place] [phone] [facility] (1) When:01/08/2023 Comments:Return to the emergency room if your pain gets worse, bowel or bladder incontinence, numbness/tingling in the saddle/groin area or any new symptoms. [facility]10-11-2023 Hospital Discharge instructions Patient Education 01/02/2023 16:56:30 Chronic Back Pain, Ltcv-zk-Xtsy Chronic Back Pain When back pain lasts [...] pull them backward. 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 [...] prescription pain medicine, or muscle relaxants. Take bqxm-rig-dstacol and prescription medicines only as told by your doctor. Ask your doctor if the medicine prescribed to you: ?Requires you to avoid driving or using machinery. ?Can cause trouble pooping (constipation). You may need to take these actions to prevent or treat trouble pooping: ?Drink enough fluid to keep your pee (urine) pale yellow. ?Take sdhb-heu-sxcolct or prescription medicines. ?Eat foods that are [...] provider. Document Revised: 04/20/2020 Document Reviewed: 04/20/2020 [employer] Patient Education 2022 [employer] Acquisition. Follow Up Care 01/02/2023 15:59:31 With:Joe Meza Address: [address] [place] [phone]- Business (1) When:01/05/2023 16:20:40 [facility]10-11-2023 Evaluation + Plan noteExtracted from: Title:ED [...] Nausea/Vomiting, # 12 tab(s), Refills(s) 0, Pharmacy: [facility] #[id number], 160, cm, 01/02/23 16:09:00 EDT, Height/Length Dosing, 114.2, kg, 01/02/23 16:09:00 EDT, Weight Dosing [facility]10-05-2023 Evaluation note* Encounter Date Diagnosis Assessment [...] Lumbar degenerative disc disease (ICD-10 - M51.36) [facility] Other 10-04-2023 Hospital Discharge instructions Patient Education [...] pull them backward. 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 [...] prescription pain medicine, or muscle relaxants. Take fchf-bdm-upbmekg and prescription medicines onlyas told by your health care provider. Ask your health care provider if the medicine prescribed to you: ?Requires you to avoid driving or using machinery. ?Can cause constipation. You may need to take these actions to prevent or treat constipation: ?Drink enough fluid to keep your urine pale yellow. ?Take dngp-ngv-hozuxoj or prescription medicines. ?Eat foods that are [...] provider. Document Revised: 04/20/2020 Document Reviewed: 04/20/2020 [employer] Patient Education 2022 [employer]quisition. Follow Up Care 12/26/2022 16:21:06 With:Bridger Del Rosario Address: [address] [place] [phone] Business (1) When:12/29/2022 16:53:27 [facility]10-04-2023 Evaluation + Plan noteExtracted from: Title:ED Note Author:Robert Taylor PA-C te:12/26/22 Chronic back pain (M54.9: Do rsalgia, unspecified) Ordered: acetaminophen-oxycodone, 1 tab(s), Oral, q6hr as needed for pain for 3 day(s), 8 tab(s), Refill(s) 0, [id number], 160, cm, 12/26/22 16:32:00 EDT, Height/Length Dosing, [...] date 12/26/22 16:52:00 EDT, 12/26/22 16:52:00 EDT [facility]10-04-2023 Evaluation note* Encounter Date Diagnosis Assessment [...] pain (ICD-10 - G89.29) No follow up. [facility] Other 10-01-2023 Hospital Discharge instructions Patient Education [...] home: Managing pain, stiffness, and swelling Take iqxv-iwe-xizarwn and prescription medicines only as told by [...] each day. Do not sit, drive, or hvac design engineer one place for more than 30 minutes [...] put less stress on your back. Take uowm-etb-zitbdtg and prescription medicines only as told by your health care provider, and apply heat or ice as told. This information is not intended to replace advice given to you by your health care provider. Make sure you discuss any questions you have with your health care provider. Document Revised: 06/02/2021 Document Reviewed: 06/02/2021 [employer] Patient Education 2022 [employer]. Follow Up Care 12/23/2022 16:55:38 With:Keep upcoming appointment with your spinal surgeon Address:Unknown When:12/26/2022 18:30:08 Comments:Seek immediate medical attention if you develop: increasing pain, numbness, tingling, weakness, loss of motion in your arms or legs, loss of control of your urine or stool, fever, abdominal pain, chest pain, shortness of breath, or any new or worsening symptoms. [facility]10-01-2023 Evaluation + Plan noteExtracted from: Title:ED [...] day(s), # 15 tab(s), Refills(s) 0, Pharmacy: [facility]/pharmacy #[id number], 160, cm, 12/23/22 17:18:00 EDT, Height/Length Dosing, 113.8, kg, 12/23/22 17:18:00 EDT, Weight Dosing ketorolac, 60 mg = 2 mL, Injection, IntraMuscular, Once, Stop date 12/23/22 18:00:00 EDT, STAT, Start date 12/23/22 18:00:00 EDT, 12/23/22 18:00:00 EDT lidocaine topical, 1 patch(es), Topical, Daily Pain, 7 EA, Refill(s) 0, apply 12 hours on and 12 hours off daily, [facility]/pharmacy #[id number], 160, cm, 12/23/22 17:18:00 EDT, Height/Length Dosing, 113.8, kg, 12/23/22 17:18:00 EDT, Weight Dosing naproxen, 500 mg = 1 tab(s), Oral, BID, PRN for pain, # 20 tab(s), Refills(s) 0, Pharmacy: [facility]/pharmacy #[id number], 160, cm, 12/23/22 17:18:00 EDT, Height/Length Dosing, 113.8, kg, 12/23/22 17:18:00 EDT, Weight Dosing XR Spine Lumbosacral 2 or 3 Views [facility]09-26-2023 Hospital Discharge instructions Patient Education 12/18/2022 [...] home: Managing pain, stiffness, and swelling Take plyv-mua-zebtqhq and prescription medicines only as told by [...] each day. Do not sit, drive, or hvac design engineer one place for more than 30 minutes [...] put less stress on your back. Take fpmf-mos-atenotr and prescription medicines only as told by your health care provider, and apply heat or ice as told. This information is not intended to replace advice given to you by your health care provider. Make sure you discuss any questions you have with your health care provider. Document Revised: 06/02/2021 Document Reviewed: 06/02/2021 [employer] Patient Education 2022 [employer]. Follow Up Care 12/18/2022 12:20:19 With:Joe Derrick Address: [address] [place] [phone] Business (1) When:12/21/2022 12:52:24 [facility]09-21-2023 Hospital Discharge instructions Patient Education 12/13/2022 [...] pull them backward. 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 [...] prescription pain medicine, or muscle relaxants. Take bgpw-mtr-npdyvsb and prescription medicines onlyas told by your health care provider. Ask your health care provider if the medicine prescribed to you: ?Requires you to avoid driving or using machinery. ?Can cause constipation. You may need to take these actions to prevent or treat constipation: ?Drink enough fluid to keep your urine pale yellow. ?Take juch-woe-noeddzm or prescription medicines. ?Eat foods that are [...] provider. Document Revised: 04/20/2020 Document Reviewed: 04/20/2020 [employer] Patient Education 2022 [employer]. Follow Up Care 12/13/2022 17:19:50 With:Joe Meza Address: [address] [place], [place] [phone]- Business (1) When:12/16/2022 18:50:16 [facility]09-21-2023 Hospital Discharge instructions Patient Education 12/12/2022 [...] hard liquor (44 mL). General instructions Take fzcz-hxc-isoeaqu and prescription medicines only as told by [...] provider. Document Revised: 11/20/2021 Document Reviewed: 11/20/2021 [employer] Patient Education 2022 [employer]. 12/12/2022 23:52:47 Chronic Back Pain Chronic Back [...] pull them backward. 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 [...] prescription pain medicine, or muscle relaxants. Take zktz-xol-jkevaba and prescription medicines onlyas told by your health care provider. Ask your health care provider if the medicine prescribed to you: ?Requires you to avoid driving or using machinery. ?Can cause constipation. You may need to take these actions to prevent or treat constipation: ?Drink enough fluid to keep your urine pale yellow. ?Take blqg-xfg-goamkjb or prescription medicines. ?Eat foods that are [...] provider. Document Revised: 04/20/2020 Document Reviewed: 04/20/2020 [employer] Patient Education 2022 [employer]. Follow Up Care 12/12/2022 20:51:35 With:XXXX NONE Address: [place] When:12/15/2022 Comments:[facility] [...] you develop any new or worsening symptoms. [facility]09-20-2023 Evaluation + Plan noteExtracted from: Title:ED [...] Lumbar w/o Contrast XR Chest Single View [facility]09-[facility]23 [facility] Hospital Discharge instructions Patient Education 12/07/2022 18:55:05 Chronic Back Pain, Hvtc-kc-Cmyu Chronic Back Pain When back pain lasts [...] pull them backward. 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 [...] prescription pain medicine, or muscle relaxants. Take avtu-glq-yfmidkz and prescription medicines only as told by your doctor. Ask your doctor if the medicine prescribed to you: ?Requires you to avoid driving or using machinery. ?Can cause trouble pooping (constipation). You may need to take these actions to prevent or treat trouble pooping: ?Drink enough fluid to keep your pee (urine) pale yellow. ?Take zrai-oue-umxwynq or prescription medicines. ?Eat foods that are [...] provider. Document Revised: 04/20/2020 Document Reviewed: 04/20/2020 [employer] Patient Education 2022 [employer] Acquisition. 12/07/2022 18:55:05 Acute Back Pain, Adult Acute [...] home: Managing pain, stiffness, and swelling Take wxqt-mus-gkwabhp and prescription medicines only as told by [...] each day. Do not sit, drive, or hvac design engineer one place for more than 30 minutes [...] put less stress on your back. Take bxzy-lsh-pvhfjxw and prescription medicines only as told by your health care provider, and apply heat or ice as told. This information is not intended to replace advice given to you by your health care provider. Make sure you discuss any questions you have with your health care provider. Document Revised: 06/02/2021 Document Reviewed: 06/02/2021 [employer] Patient Education 2022 PFI Acquisition. Follow Up Care 12/07/2022 16:26:15 With:Peña Salazar Address: [address] [place] [phone] Business (1) When:12/10/2022 18:30:41 Comments:Follow-up with your primary care provider in 3 to 5 days. If symptoms worsen, do not improve, or new symptoms arise please report back to emergency department for further evaluation. [facility]09-12-2023 Emergency department Note* Angela Dan RN - 12/04/2022 8:25 PM EDT Patient discharged to home, alert and oriented, skin warm, dry and pink. Denies needs and or questions. Will follow-up as directed, patient encouraged to return for worsening or new symptoms or otherconcerns. [id number] Emergency department Note* Angela Dan RN - 12/04/2022 8:25 PM EDT Patient discharged to home, alert and oriented, skin warm, dry and pink. Denies needs and or questions. Will follow-up as directed, patient encouraged to return for worsening or new symptoms or otherconcerns. * Angela Dan RN - 12/04/2022 8:08 PM EDT Patient medicated per MAY. Respirations even and unlabored. Skin warm and dry. * Allyson Nicole DO - 12/04/2022 7:58 PM EDT Chief Complaint: Lower lumbar back pain that radiates to the right leg history of lumbar disc disease HPI: Jerad Tracy is a 47 year old female who presents with a complaint that she does have a known history of lumbar disc disease. She drove over the weekend from [facility] where she lives and exacerbated her [...] 75 mcg, 75 mcg, Subcutaneous, Dinorah, Allyson Nicole,DO ondansetron (ZOFRAN ODT) RAPID DISSOLVING tablet 4 mg, 4 mg, Oral, Q6H PRN, Allyson Nicole, DO diazePAM (VALIUM) tablet 5 mg, 5 mg, Oral, Dinorah, Allyson Nicole, DO No current outpatient medications on file. [...] Management: Outpatient management with her neurosurgeon in [place] FINAL IMPRESSION: 1 --acute on chronic lower lumbar back pain with history of lumbar disc disease 2 -- 3 -- I have reviewed the past medical, family, and social history sections including the medications andallergies listed in the above medical record. Electronically signed by: Allyson Nicole DO, 12/04/2022 7:58 PM * Angela Dan RN - 12/04/2022 7:54 PM EDT Provider at bedside. * Radha Spivey RN - 12/04/2022 7:08 PM EDT Patient arrives ambulatory to triage with c/o herniated disc in her back, states this is a chronic issue but the pain has been flaring up worse. documented in this encounterMadison [id number] Emergency department Note* Angela Dan RN - 12/04/2022 8:08 PM EDT Patient medicated per MAY. Respirations even and unlabored. Skin warm and dry. [id number] Physician Emergency department Note* Allyson Nicole DO - 12/04/2022 7:58 PM EDT Chief Complaint: Lower lumbar back pain that radiates to the right leg history of lumbar disc disease HPI: Jerad Tracy is a 47 year old female who presents with a complaint that she does have a known history of lumbar disc disease. She drove over the weekend from [facility] where she lives and exacerbated her [...] 4 mg, 4 mg, Oral, Q6H PRN, Allsyon Nicole, DO diazePAM (VALIUM) tablet 5 mg, 5 mg, Oral, Now, Allyson Nicole, DO No current outpatient medications on file. [...] Management: Outpatient management with her neurosurgeon in [place] FINAL IMPRESSION: 1 --acute on chronic lower lumbar back pain with history of lumbar disc disease 2 -- 3 -- I have reviewed the past medical, family, and social history sections including the medications andallergies listed in the above medical record. Electronically signed by: Allyson Nicole DO, 12/04/2022 7:58 PM [facility] [id number] Emergency department Note* Angela Dan RN - 12/04/2022 7:54 PM EDT Provider at bedside. [id number] Emergency department Note* Radha Spivey RN - 12/04/2022 7:08 PM EDT Patient arrives ambulatory to triage with c/o herniated disc in her back, states this is a chronic issue but the pain has been flaring up worse. [id number] [facility] 11-19-2022 Evaluation note* Encounter Date Diagnosis Assessment [...] (ICD-10 - G89.29) Follow up after procedure. [facility] 08-15-2023 Evaluation note* Encounter Date Diagnosis [...] SI (sacroiliac) joint inflammation (ICD-10 - M46.1) [facility] 07-05-2023 Evaluation note* Encounter Date Diagnosis [...] procedure. Sep, Other UDS performe d through [employer] [facility] lab today, will await confirmatory results. [facility] Other [id number] Procedure noteUniversity [facility]als [facility]06-13-2023 Hospital Discharge instructions Patient Education 09/04/2022 [...] pull them backward. 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 [...] prescription pain medicine, or muscle relaxants. Take zvis-xlt-epbhfys and prescription medicines onlyas told by your health care provider. Ask your health care provider if the medicine prescribed to you: ?Requires you to avoid driving or using machinery. ?Can cause constipation. You may need to take these actions to prevent or treat constipation: ?Drink enough fluid to keep your urine pale yellow. ?Take wigt-tqe-hqxjbuk or prescription medicines. ?Eat foods that are [...] provider. Document Revised: 04/20/2020 Document Reviewed: 04/20/2020 [employer] Patient Education 2022 PFI Acquisition. Follow Up Care 09/04/2022 19:08:34 With:Pain Clinic: [facility] [phone] Address:Unknown When:09/07/2022 20:33:32 With:XXXX NONE Address: [place] When:Within 3 Day(s) [facility]06-13-2023 Evaluation + Plan noteExtracted from: Title:ED Note Author:Sam Dowd PA-C e:09/04/22 Chronic back pain (M54.9: Do rsalgia, unspecified) Other chronic pain (G89.29: Other chronic pain) Orders: ketorolac, 60 mg = 2 mL, Injection, IntraMuscular, Once, Stop date 09/04/22 20:29:00 EDT, STAT, Start date 09/04/22 20:29:00 EDT, 09/04/22 20:29:00 EDT [facility]06-13-2023 Evaluation note* Encounter Date Diagnosis Assessment [...] she is waiting to be scheduled at [facility] for this. Prior to examining the [...] negative findings were considered in medical decision-making. [facility] 05-30-2023 Evaluation note* Encounter Date Diagnosis [...] 4-6 pounds of pressure on the spine. [facility] 01-06-2022 Evaluation note* Encounter Date Diagnosis [...] Above note written by Ina Regalado LPN, [employer]. Edited and approved by Dr. Avery Goodman [...] negative findings were considered in medical decision-making. [facility] 11-24-2021 Evaluation note* Encounter Date Diagnosis [...] and denies any concerns at this time. [facility] Other Evaluation + Plan note No data available for this section [facility] Plan noteExtracted from: Title:ED Note [...] date 02/07/23 19:57:00 EST, 02/07/23 19:57:00 EST [facility] Future Appointments Appointment Date:06/13/2023 07:40:00 AM Scheduled Provider:Cheyanne Rincon Location:[facility] Appointment Type:FM New Patient - Adult [facility] Future Appointments Appointment Date:08/14/2023 03:15:00 PM Scheduled Provider:Domenic Sher DO Location:[facility] Appointment Type:Pain Management - Follow Up (FT) Future Scheduled Tests Laboratory* TSH With T4fr Reflex 07/17/23 * Urinalysis with Micro 07/17/23 * Lipid Panel 07/17/23 * Drug Screen Urine 07/17/23 Radiology* MA Mamm Screen w/CAD if perf and 3D Kenan 07/17/23 [facility] Evaluation + Plan note Future Appointments Appointment Date:11/13/2023 08:00:00 AM Scheduled Provider:Domenic Sher DO Location:[facility] Appointment Type:Pain Management - Follow Up (FT) Future Scheduled Tests Laboratory* TSH With T4fr Reflex 07/17/23 * Urinalysis with Micro 07/17/23 * Lipid Panel 07/17/23 * Drug Screen Urine 07/17/23 Radiology* MA Mamm Screen w/CAD if perf and 3D Kenan 07/17/23 [facility] evaluation noteNo InformationNort [employer] Other Evaluation noteNo assessment information available [facility] Work Phone: Evaluation note* Diagnosis Onset Date Resolution Status Rectal bleeding acute [facility] Work Phone: Evaluation note* Diagnosis Lumbar disc disease- Primary Other and unspecified disc disorder of lumbar region [facility] Diagnosis Encounter for screening mammogram for breast cancer- Primary Recurrent major depressive disorder, in full remission (CMS/HCC) Herniation of intervertebral disc between L4 and L5 Lumbar radiculopathy Thoracic or lumbosacral neuritis or radiculitis, unspecified Chronic hepatitis C without hepatic coma (CMS/HCC) Chronic, continuous use of opioids Controlled substance agreement signed documented in this encounter [facility] Work Phone: Evaluation note* Diagnosis Chronic low back pain, unspecified back pain laterality, unspecified whether sciatica present- Primary documented in this encounter [facility] Work Phone: Evaluation note* Diagnosis Chronic hepatitis C without hepatic coma (CMS/HCC) documented in this encounter [facility] Work Phone: [phone] note* Diagnosis Chronic hepatitis C without hepatic coma (CMS/HCC) documented in this encounter [facility] Work Phone: [phone] note* Diagnosis Continuous opioid dependence (CMS/HCC)- Primary Opioid type dependence, continuous abuse Chronic hepatitis C without hepatic coma (CMS/HCC) documented in this encounter [facility] Work Phone: Evaluation note* Diagnosis Chronic right-sided low back pain with right-sided sciatica- Primary [facility]* Diagnosis Onset Date Resolution Status Arthritis of carpometacarpal (CMC) joint of right thum b acute Sprain of right thumb acute [facility] Work Phone: Evaluation note* Diagnosis CMC arthritis- Primary Right wrist pain Pain in joint, forearm documented in this encounter [facility] Work Phone: Evaluation note* Diagnosis Chronic back pain greater than 3 months duration- Primary Neuropathic pain documented in this encounter [facility] Work Phone: Evaluation note* Diagnosis Acute bilateral low back pain, unspecified whether sciatica present- Primary [facility]* Diagnosis Chronic back pain, unspecified back location, unspecified back pain laterality- Primary documented in this encounter [facility] Work Phone: Evaluation note* Diagnosis Pain disorder associated with psychological and physical factors documented in this encounter [facility] Work Phone: Evaluation note* Diagnosis Low back pain without sciatica, unspecified back pain laterality, unspecified chronicity- Primary [facility]* Diagnosis Chronic back pain greater than 3 months duration- Primary Chronic back pain greater than 3 months duration Neuropathic pain Continuous opioid dependence (Multi) Opioid type dependence, continuous abuse Neuropathic pain documented in this encounter [facility] Work Phone: Evaluation note* Diagnosis Chronic back pain greater than 3 months duration- Primary Neuropathic pain documented in this encounter [facility] Work Phone: [phone] note* Diagnosis Strain of lumbar region, initial encounter- Primary [facility]* Diagnosis Infection of superficial incisional surgical site after procedure, initial encounter- Primary [facility] Diagnosis Dehiscence of wound of skin, initial encounter- Primary Low back pain, unspecified back pain laterality, unspecified chronicity, unspecified whether sciatica present [facility] Diagnosis 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 Hepatic fibrosis, advanced fibrosis documented in this encounter [facility] Work Phone: [phone] note* Diagnosis 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 Hepatic fibrosis, advanced fibrosis Neuropathic pain- Primary Dehiscence of wound of skin, subsequent encounter Status post insertion of spinal cord stimulator documented in this encounter [facility] Work Phone: [phone] note* Diagnosis 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 Hepatic fibrosis, advanced fibrosis Acute exacerbation of chronic low back pain- Primary documented in this encounter [facility] Work Phone: [phone] note* Diagnosis 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 Hepatic fibrosis, advanced fibrosis Lumbar radiculopathy- Primary Thoracic or lumbosacral neuritis or radiculitis, unspecified Left leg weakness Muscle weakness (generalized) Chronic midline low back pain, unspecified whether sciatica present Spinal stenosis of lumbar region, unspecified whether neurogenic claudication present Acute exacerbation of chronic low back pain documented in this encounter [facility] Work Phone: [phone] note* Diagnosis 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 Hepatic fibrosis, advanced fibrosis Chronic low back pain without sciatica, unspecified back pain laterality- Primary Left leg weakness Muscle weakness (generalized) Chronic back pain greater than 3 months duration documented in this encounter [facility] Work Phone: Evaluation note* Diagnosis 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 Hepatic fibrosis, advanced fibrosis Chronic low back pain with sciatica, sciatica laterality unspecified, unspecified back pain laterality- Primary Left leg weakness Muscle weakness (generalized) Decreased sensation of leg Lumbar disc herniation Displacement of lumbar intervertebral disc without myelopathy documented in this encounter [facility] Work Phone: [phone] note* Diagnosis 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 Hepatic fibrosis, advanced fibrosis Acute midline low back pain without sciatica- Primary documented in this encounter [facility] Work Phone: [phone] note* Diagnosis 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 Hepatic fibrosis, advanced fibrosis Lumbar disc herniation with radiculopathy- Primary Displacement of lumbar intervertebral disc without myelopathy documented in this encounter [facility] Work Phone: [phone] note* Diagnosis 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 Hepatic fibrosis, advanced fibrosis Acute left-sided low back pain with left-sided sciatica- Primary Lumbar disc herniation with radiculopathy- Primary Displacement of lumbar intervertebral disc without myelopathy Lumbar disc herniation with radiculopathy Displacement of lumbar intervertebral disc without myelopathy documented in this encounter [facility] Work Phone: [phone] note* Diagnosis 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 Hepatic fibrosis, advanced fibrosis Lumbar disc herniation with radiculopathy- Primary Displacement of lumbar intervertebral disc without myelopathy Acute bilateral low back pain without sciatica- Primary Lumbar disc herniation with radiculopathy Displacement of lumbar intervertebral disc without myelopathy documented in this encounter [facility] Work Phone: [phone] note* Diagnosis 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 Hepatic fibrosis, advanced fibrosis Lumbar disc herniation with radiculopathy- Primary Displacement of lumbar intervertebral disc without myelopathy Acute left-sided low back pain with left-sided sciatica- Primary Lumbar disc herniation with radiculopathy Displacement of lumbar intervertebral disc without myelopathy documented in this encounter [facility] Work Phone: [phone] note* Diagnosis 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 Hepatic fibrosis, advanced fibrosis Lumbar disc herniation with radiculopathy- Primary Displacement of lumbar intervertebral disc without myelopathy Lumbar radiculopathy, acute- Primary Acute left-sided low back pain with left-sided sciatica Chronic pain syndrome Left leg weakness Muscle weakness (generalized) Back pain with radiation Unspecified backache Morbid obesity (Multi) Morbid obesity Chronic pain syndrome Lumbar disc herniation with radiculopathy Displacement of lumbar intervertebral disc without myelopathy documented in this encounter [facility] Work Phone: [phone] note* Diagnosis 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 Hepatic fibrosis, advanced fibrosis Lumbar disc herniation with radiculopathy- Primary Displacement of lumbar intervertebral disc without myelopathy Fall, initial encounter- Primary Chronic low back pain with left-sided sciatica, unspecified back pain laterality Lumbar disc herniation with radiculopathy Displacement of lumbar intervertebral disc without myelopathy documented in this encounter [facility] Work Phone: [phone] note* Diagnosis 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 Hepatic fibrosis, advanced fibrosis Lumbar disc herniation with radiculopathy- Primary Displacement of lumbar intervertebral disc without myelopathy Chronic low back pain without sciatica, unspecified back pain laterality- Primary Lumbar disc herniation with radiculopathy Displacement of lumbar intervertebral disc without myelopathy documented in this encounter [facility] Work Phone: [phone] note* Diagnosis 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 Hepatic fibrosis, advanced fibrosis Lumbar disc herniation with radiculopathy- Primary Displacement of lumbar intervertebral disc without myelopathy Lumbar disc herniation with radiculopathy Displacement of lumbar intervertebral disc without myelopathy documented in this encounter [facility] Work Phone: [phone] note* Diagnosis 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 Hepatic fibrosis, advanced fibrosis Back pain Unspecified backache documented in this encounter [facility] Work Phone: [phone] note* Diagnosis 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 Hepatic fibrosis, advanced fibrosis Encounter for management of wound VAC- Primary Postoperative pain after spinal surgery documented in this encounter [facility] Work Phone: [phone] general Narrative - Reported* Type Description Date [...] & adneoids Surgical History TANIKA, RSO 2010 [facility] Other History general Narrative - Reported* Type [...] RSO 2010 Hospitalization History see surg Hx [facility] Other Hospital Discharge instructions No data available for this section [facility] Additional Instructions Return for new or worsening symptoms [facility] Discharge instructions Additional Instructions Take Bentyl and simethicone as prescribed for mild to moderate pain. Take Percocet as needed for severe pain. Increase your intake of fluids. Follow-up with a hotel services sales representative listed below for ongoing evaluation possible colonoscopy regarding your lower GI bleeding. Return to emergency department if you develop any fevers chills or intractable nausea vomiting, severe worsening bleeding, shortness of breath fatigue with bleeding. Follow-up with the PCP for reevaluation in 3 to 5 days days.[facility] Work Phone: Hospital Discharge instructions Additional Instructions Take the Bentyl as needed for abdominal cramping pain, use Zofran for nausea, start taking Carafate as well Call the GI doctor to see if he can be seen sooner Return for worsening abdominal pain or bleeding, fevers, continued vomiting, [facility] Work [facility]: Hospital Discharge instructions Additional Instructions [facility]ology[facility] Work Phone: Hospital Discharge instructions Additional [...] your legs high fever or any other concernsParkview Health [facility] Work Phone: Hospital Discharge instructions Additional [...] bowel control high fever or any other concernsParkview Health [facility] Work Phone: Hospital Discharge instructions Additional Instructions Take 1 oxycodone every 6 hours for severe pain Continue your other medications Follow-up with the neurosurgeon and physical therapy Return to the ER for more severe pain high fever weakness in your legs loss of bladder bowel control or any other concernsParkview Health [facility] Work Phone: Hospital Discharge instructions Additional Instructions Take the oxycodone as prescribed to completed Follow-up with your doctors Return to the ER for worsening pain high fever weakness in your legs loss of bladder bowel control or any other concernsParkview Health [facility] Work Phone: Hospital Discharge instructions Additional Instructions Follow-up pain management as discussed Take Relafen if needed for pain Gentle range of motion Return here if any problems persist or worsen including loss of bowel bladder control, fevers, chills, numbness, tingling or other concernsParkview Health [facility] Work Phone: Hospital Discharge instructions Additional [...] bowel control high fever or any other concernsParkview Health [facility] Work Phone: Hospital Discharge instructions Additional [...] you pain medicine for the next several days.[facility] Work Phone: hospital Discharge instructions Additional Instructions Take 1 oxycodone every 6 hours for severe pain May apply ice warm moist heat to sore areas Gentle stretching Follow-up with your [facility] Work Phone: hospital Discharge instructions Additional Instructions Avoid heavy lifting Take your antibiotic as instructed until gone for your UTI Is important that you call Dr. Meza and Dr. Rivero's office both tomorrow to let them know of your symptoms and discuss treatment plan Return here if any problems persist or worsen*[facility] Work Phone: hospital Discharge instructions Additional Instructions Take the dexamethasone once a day for 7 days Continue your other medication May use ice warm moist heat Follow-up with pain management and neurosurgery Return to the ER for worsening symptoms fever more severe pain or any other concernsParkview Health [facility] Hospital Work Phone: hospital Discharge instructions Additional Instructions On oxycodone every 6 hours as needed for pain Ice warm moist heat Continue your other medications Follow-up with your doctors as scheduled Return to the ER worsening pain high fever weakness in the legs loss of bladder bowel control or any other concernsParkview Health [facility] Work Phone: hospital Discharge instructions Additional Instructions Continue cyclobenzaprine 3 times a day as needed Oxycodone every 6 hours as needed Follow-up with the specialist as scheduled Return to the ER for leg weakness loss of bladder bowel control high fever or any other concernsParkview Health [facility] Work Phone: hospital Discharge instructions Additional Instructions 1. Apply moist heat to affected area 2. Avoid lifting, pushing or pulling more than 10 pounds 3. Keep appointment with neurosurgery/pain management as scheduled in [place] 4. May apply OTC Lidocaine patches to affected area to help with painPark[facility] Work Phone: Hospital Discharge instructions Additional Instructions Avoid lifting, pushing, pulling continue to try to reach neurosurgeonPark[facility] Work Phone: Hospital Discharge instructions Additional Instructions Continue your other medication Follow-up with your providers Return to the ER for worsening back pain high fever weakness in your legs loss of bladder bowel control or any other concernsPark[facility] Work Phone: Hospital Discharge instructions Additional Instructions Follow-up with Ortho as scheduled Take Percocet as needed for pain, do not drive, drink, operate heavy machinery while takingParkview Health [facility] Hospital Work Phone: Hospital Discharge instructions* Attachments The following attachments cannot be sent through Care Everywhere. * Managing acute pain at home (Cambodian) [facility] Work Phone[facility] Hospital Discharge instructions Additional Instructions Continue your regular medication Follow-up with your family doctor Return to the ER for worsening pain weakness in your legs loss of bladder bowel control high fever or any other concernsPark[facility] Health [facility] Work Phone: Hospital Discharge instructions Additional Instructions Continue Flexeril for muscle spasms at home Continue oxycodone as prescribed at home Follow-up with pain management Rest Apply ice Return here if any problems persist or worsenPark[facility] Work Phone: Hospital Discharge instructions* Attachments The following attachments cannot be sent through Care Everywhere. * Back: Strain (Cambodian) [facility] Additional Instructions Call Dr. Adams's office your neurosurgeon tomorrow for follow-up as soon as possible.[facility] Work Phone: Hospital Discharge instructions Additional Instructions If your symptoms return/worsen or you develop any further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 Antonio Husain PA-C [address] [facility] [place] [address] PCP - General Internal Medicine 01/08/23 Screening Technician Relationship Specialty Start Date End Date Antonio Husain PA-C [address] [facility] [place] [address] PCP - General Internal Medicine 01/08/23 Team Status: Inactive Member Role Status Dates PHYSICIAN NO FAMILY Primary Care Provider Active Kati Huerta APRN Emergency Provider Active Screening Technician Relationship Specialty Start Date End Date Antonio Husain PA-C [address] [facility] [place] [address] PCP - General Internal Medicine 01/08/23 Screening Technician Relationship Specialty Start Date End Date Antonio Husain PA-C [address] [facility] [place] [address] PCP - General Internal Medicine 01/08/23 Screening Technician Relationship Specialty Start Date End Date Antonio Husain PA-C [address] [facility] [address] PCP - General Internal Medicine 01/08/23 Team [...] End: February 08, 2023 Mary Beth Sloan [facility]- Emergency Provider Active Start: February 08, 2023 [...] March 09, 2023 Mary Beth Sloan , TECHNICAL CONSULTANT- Emergency Provider Active Start: March 09, 2023 [...] April 12, 2023 End: April 12, 2023 Screening Technician Relationship Specialty Start Date End [place] [address] [phone] (Work) PCP - General 12/04/22 Team Status: [...] May 19, 2023 End: May 19, 2023 Screening Technician Relationship Specialty Start Date End Date Antonio Husain PA-C [address] [facility] [place] [address] PCP - General Internal Medicine 01/08/23 Screening Technician Relationship Specialty Start Date End [place] [address] [phone] (Work) PCP - General 12/04/22 Screening Technician Relationship Specialty Start Date End Date Slime Sherwood DO [address] [facility] [place] [address] PCP - General Internal Medicine 06/15/23 Team [...] July 04, 2023 End: July 04, 2023 [facility] Active Start: July 04, 2023 End: July 04, 2023 Screening Technician Relationship Specialty Start Date End Date Slime Sherwood DO [address] [facility] [place] [address] PCP - General Internal Medicine 06/15/23 Screening Technician Relationship Specialty Start Date End Date [place] [address] [phone] (Work) PCP - General 12/04/22 Screening Technician Relationship Specialty Start Date End Date Generic Provider, [place] [address] PCP - General Grinder Set Up Operator 08/02/23 Screening Technician Relationship Specialty Start Date End Date Generic Provider, [place] [address] PCP - General Grinder Set Up Operator 08/02/23 Team Status: Inactive Member Role Status [...] Health Primary Care Provider Active Start: November 10, [...] December 01, 2023 End: December 02, 2023 Screening Technician Relationship Specialty Start Date End Date [place] [address] [phone] (Work) PCP - General 12/04/22 Team Status: Inactive Member Role Status Dates Services [facility] Primary Care Provider Active Start: December 12, 2023 End: December 12, 2023 Deb Carmichael APRN Emergency Provider Active Start: December 12, 2023 End: December 12, 2023 Screening Technician Relationship Specialty Start Date End Date Generic Provider, [place] [address] PCP - General Grinder Set Up Operator 12/13/23 Team Status: Inactive Member Role Status Dates PHYSICIAN NO FAMILY Primary Care Provider Active Start: December 26, 2023 End: December 26, 2023 Joshua Ferrell APRN Emergency Provider Active Start: December 26, 2023 End: December 26, 2023 Screening Technician Relationship Specialty Start Date End Date Generic Provider, No [place] [address] PCP - General Grinder Set Up Operator 12/13/23 Screening Technician Relationship Specialty Start Date End Date Generic Provider, No [place] [address] PCP - General Grinder Set Up Operator 12/13/23 Screening Technician Relationship Specialty Start Date End Date Marlee Fitzpatrick MD [address] [facility] [address] [place] [address] PCP - General Internal Medicine 01/01/24 Tracee Maurice [facility] [address] Registrar 01/01/24 01/01/24 Screening Technician Relationship Specialty Start Date End Date Marlee Fitzpatrick MD [address] [facility] [address] [place] [address] PCP - General Internal Medicine 01/01/24 Natalia You, tourist agentMotorcycle Deliverer 01/06/24 01/07/24 Screening Technician Relationship Specialty Start Date End Date Marlee Fitzpatrick MD [address] [facility] [address] [place] [address] PCP - General Internal Medicine 01/01/24 Natalia You RN Care Motorcycle Deliverer 01/09/24 Screening Technician Relationship Specialty Start Date End Date Marlee Fitzpatrick MD [address] [facility] [address] [place] [address] PCP - General Internal Medicine 01/01/24 Natalia You RN Care Motorcycle Deliverer 01/09/24 Team Status: Active Member Role Status Dates PHYSICIAN NO FAMILY Primary Care Provider Active Start: December 23, 2023 Manjinder Glez DO Attending Provider Active Sta rt: December 23, 2023 Team Status: Inactive Member Role Status Dates PHYSICIAN NO FAMILY Primary Care Provider Active Start: January 16, 2024 End: January 16, 2024 Deb Carmichael APRN Emergency Provider Active Start: January 16, 2024 End: January 16, 2024 Screening Technician Relationship Specialty Start Date End Date Marlee Fitzpatrick MD [address] [facility] [address] [place] [address] PCP - General Internal Medicine 01/01/24 Natalia You RN Care Motorcycle Deliverer 01/09/24 Screening Technician Relationship Specialty Start Date End Date Marlee Fitzpatrick MD [address] [facility] [address] [place] [address] PCP - General Internal Medicine 01/01/24 Natalia You RN Care Motorcycle Deliverer 01/09/24 Screening Technician Relationship Specialty Start Date End Date Marlee Fitzpatrick MD [address] [facility] [address] [place] [address] PCP - General Internal Medicine 01/01/24 Natalia You, tourist agentMotorcycle Deliverer 01/09/24 Team Status: Inactive Member Role Status Dates PHYSICIAN NO FAMILY Primary Care Provider Active Start: January 26, 2024 End: January 26, 2024 Mary Beth Sloan , TECHNICAL CONSULTANT- Emergency Provider Active Start: January 26, 2024 End: January 26, 2024 Screening Technician Relationship Specialty Start Date End Date Marlee Fitzpatrick MD [address] [facility] [address] [place] [address] PCP - General Internal Medicine 01/01/24 Natalia You, tourist agentMotorcycle Deliverer 01/09/24 Screening Technician Relationship Specialty Start Date End Date Marlee Fitzpatrick MD [address] [facility] [address] [place] [address] PCP - General Internal Medicine 01/01/24 Natalia You, tourist agentMotorcycle Deliverer 01/09/24 01/27/24 Screening Technician Relationship Specialty Start Date End Date Marlee Fitzpatrick MD [address] [facility] [address] [place] [address] PCP - General Internal Medicine 01/01/24 Screening Technician Relationship Specialty Start Date End Date Marlee Fitzpatrick MD [address] [facility] [address] [place] [address] PCP - General Internal Medicine 01/01/24 Screening Technician Relationship Specialty Start Date End Date Marlee Fitzpatrick MD [address] [facility] [address] [place] [address] PCP - General Internal Medicine 01/01/24 Screening Technician Relationship Specialty Start Date End Date Marlee Fitzpatrick MD [address] [facility] [address] [place] [address] PCP - General Internal Medicine 01/01/24 Team Status: Inactive Member Role Status Dates PHYSICIAN NO FAMILY Primary Care Provider Active Start: February 05, 2024 End: February 05, 2024 Narciso Bennett PA-C Emergency Provider Active Start: February 05, 2024 End: February 05, 2024 Screening Technician Relationship Specialty Start Date End Date Marlee Fitzpatrick MD [address] [place] [place] [address] PCP - General Internal Medicine 01/01/24 Goals (unrecognized section and content) Goals may be documented in a n alternate section INFORMATION SOURCE (unrecogn ized section and content) DATE CREATED AUTHOR 01/15/2022 [facility] DATE CREATED AUTHOR AUTHOR'S ORGANIZ ATION 11/08/2022 [facility] DATE CREATED AUTHOR AUTHOR'S ORGANIZ ATION 11/02/2023 [facility] DATE CREATED AUTHOR AUTHOR'S ORGANIZ ATION 11/28/2023 [facility] DATE CREATED AUTHOR AUTHOR'S ORGANIZ ATION 12/02/2023 [facility] DATE CREATED AUTHOR AUTHOR'S ORGANIZ ATION 12/16/2023 [facility] DATE CREATED AUTHOR AUTHOR'S ORGANIZ ATION 12/26/2023 [facility] DATE CREATED AUTHOR AUTHOR'S ORGANIZ ATION 01/10/2024 [facility] DATE CREATED AUTHOR AUTHOR'S ORGANIZ ATION 01/19/2024 [facility] DATE CREATED AUTHOR AUTHOR'S ORGANIZ ATION 01/24/2024 [facility] DATE CREATED AUTHOR AUTHOR'S ORGANIZ ATION 01/24/2024 [facility] DATE CREATED AUTHOR AUTHOR'S ORGANIZ ATION 01/25/2024 [facility] DATE CREATED AUTHOR AUTHOR'S ORGANIZ ATION 01/29/2024 [facility] DATE CREATED AUTHOR AUTHOR'S ORGANIZ ATION 01/31/2024 [facility] DATE CREATED AUTHOR AUTHOR'S ORGANIZ ATION 02/06/2024 [facility] DATE CREATED AUTHOR AUTHOR'S ORGANIZ ATION 02/07/2024 [facility] DATE CREATED AUTHOR AUTHOR'S ORGANIZ ATION 02/07/2024 [facility] DATE CREATED AUTHOR AUTHOR'S ORGANIZ ATION 02/15/2024 [facility] DATE CREATED AUTHOR AUTHOR'S ORGANIZ ATION 02/16/2024 [facility] DATE CREATED AUTHOR AUTHOR'S ORGANIZ ATION 02/16/2024 [facility] DATE CREATED AUTHOR AUTHOR'S ORGANIZ ATION 02/17/2024 [facility] DATE CREATED AUTHOR AUTHOR'S ORGANIZ ATION [facility]/17/2024 [facility] DATE CREATED AUTHOR AUTHOR'S ORGANIZ ATION 02/18/2024 [facility] DATE CREATED AUTHOR AUTHOR'S ORGANIZ ATION 02/18/2024 [facility] Scheduled Active and Recently Administ ered Medications (unrecognized section and content) Medication Order 12/02/2022 12/03/2022 12/04/2022 diazePAM (VALIUM) tablet 5 mg (COMPLETED) 5 mg, Oral, NOW, 1 dose, On Sat12/04/22 at 2004 2006 (Given - Provid er: Angela Dan RN) fentaNYL (PF) (SUBLIMAZE) injection solution 75 mcg (COMPLETED) 75 mcg, Subcutaneous, NOW, 1 dose, On Sat12/04/22 at 2004 2006 (Given - Provid er: Angela Dna RN) PRN Medication Order 12/02/2022 12/03/2022 12/04/2022 ondansetron (ZOFRAN ODT) RAPID DISSOLVING tablet 4 mg 4 mg, Oral, EVERY 6 HOURS PRN, Starting on Sat12/04/22 at 195, Until Discontinued, Nausea/Vomiting 2006 (Given - Provid er: Angela Dan RN) Scheduled Medication Order 04/26/2023 04/27/2023 [...] 2315, Until Discontinued, Administer over 12 Hours 232 (Patch Applied - Provider: Laurita Baires RN) [...] LPM, Keep O2 Sat Above: 92% 1015 (Due)2000 (Due) Continuous Medication Order 08/19/2023 08/20/2023 08/21/2023 [...] dose 2100 (New Bag - Provider: Nikolas Templeton, DARSHAN)2201 (Stopped - Provider: Nikolas Templeton RN) PRN Medication Order 10/29/2023 10/30/2023 10/31/2023 gadoteridol (PROHANCE) injection 20 mL (COMPLETED) 20 mL, IntraVENous, IMG ONCE PRN, 1 dose, Starting on Sat10/30/23 at 210, Until Sat10/30/23 at 2109, Other 2109 (Given - Provider: Houston Dumont) sodium chloride flush 0.9 % injection 10 mL 10 mL, IntraVENous, PRN, Starting on Sat10/30/23 at 210, Until Discontinued, Line Care 2109 (Given - Provider: Houston Dumont) Scheduled Medication Order 12/02/2023 12/03/2023 12/04/2023 iohexoL (OMNIPAQUE) 350 mg iodine/mL intravenous solution 100 mL (COMPLETED) 100 mL, IV Push, TO CT SCAN-ONCE, 1 dose, On Sat12/04/23 at 2250 2243 (Given - Provid er: Francisco J Valerio, RT(R)) methocarbamoL (ROBAXIN) tablet 1,000 mg [...] at 2250 2244 (Given - Provid er: Francisco J Valerio, RT(R)) Scheduled Medication Order 12/28/2023 12/29/2023 12/30/2023 cyclobenzaprine (Flexeril) tablet 5 mg (COMPLETED) 5 mg, oral, Once, On 12/30/23 at 1925, For 1 dose 1957 (Given - Provid er: Piero Lang LPN) dexAMETHasone (Decadron) tablet 10 mg (COMPLETED) 10 mg, oral, Once, On Sat12/30/23 at 1925, For 1 dose 1957 (Given - Provid er: Piero Lang LPN) lidocaine 4 % patch 1 patch 1 patch, transdermal, Administer over 12 Hours, Once, On Sat12/30/23 at 1925, For 1 dose, Apply to back. Patch will remain on for 12 hours, then removed for [address] patch directly over any surgical incisions or wounds. 1958 (Medication Kennedi lied - Provider: Piero Lang LPN - Comment: back) oxyCODONE-acetaminophen (Percocet) 5-325 mg per tablet 1 tablet (COMPLETED) 1 tablet, oral, Once, On Sat12/30/23 at 1925, For 1 dose, If ordered PRN for pain, nurse is permitted to administer this medication for higher pain scores based on patient preference? Yes 1957 (Given - Provid er: Piero Lang LPN) Scheduled Medication Order 01/02/2024 01/03/2024 01/04/2024 dexAMETHasone (Decadron) tablet 4 mg 4 mg, oral, Every 6 hours scheduled, First dose on Shira 01/02/24 at 0000 0545 (Given - Provider: Maria Alejandra Wells RN)1148 (Given - Provider: Elsy Santa RN)1743 (Given - Provider: Daysi Pina LPN) 0055 (Given - Provider: Suzie Bello RN)0505 (Given - Provider: Suzie Bello RN)1225 (Given - Provider: Elsy Santa RN)1722 (Given - Provider: Elsy Santa RN) 0030 (Given - Provider: Suzie Bello RN)0504 (Given - Provider: Suzie Bello RN)1214 (Given - Provider: Yaritza Rae RN)1800 (Due) enoxaparin (Lovenox) syringe 40 mg 40 mg, subcutaneous, Every 12 hours scheduled, First dose on Sat01/01/24 at 0900 0803 (Given - Provider: Elsy Santa RN)205 (Given - Provider: Suzie Bello RN) 0852 (Given - Provider: Elsy Santa RN)2026 (Given - Provider: Suzie Bello RN) 0804 (Given - Provider: Yaritza Rae RN)2100 (Due) FLUoxetine (PROzac) capsule 60 mg 60 mg, oral, Daily, First dose on Sat01/02/24 at 0900 0803 (Given - Provider: Elsy Santa RN) 09 (Given - Provider: Elsy Santa RN) 08 (Given - Provider: Yaritza Rae RN) lidocaine 4 % patch 1 patch 1 patch, transdermal, Administer over 12 Hours, Daily, First dose on Sat01/02/24 at 0900, Apply to lower back to the left of the spine 08 (Medication Applied - Provider: Elsy Santa RN - Comment: left hip)2051 (Medication Removed - Provider: Suzie Bello RN) 0852 (Medication Applied - Provider: Elsy Santa RN - Comment: left flank)2026 (Medication Removed - Provider: Suzie Bello RN) 09 (Medication Applied - Provider: Yaritza Rae RN - Comment: left side lower back)2126 (Due: Medication Removed - Provider: Yaritza Rae RN) melatonin tablet 6 mg (COMPLETED) 6 mg, oral, Once, On Sat01/02/24 at 0230, For 1 dose 0223 (Given - Provider: Maria Alejandra Wells RN) methocarbamol (Robaxin) tablet 500 mg 500 mg, oral, 3 times daily, First dose on Sat01/01/24 at 2230 0804 (Given - Provider: Elsy Santa RN)1421 (Given - Provider: Elsy Santa RN)2050 (Given - Provider: Suzie Bello RN) 0856 (Given - Provider: Elsy Santa RN)1527 (Given - Provider: Elsy Santa RN)202 (Given - Provider: uSzie Bello RN) 0804 (Given - Provider: Yaritza Rae RN)1500 (Due)2100 (Due) pantoprazole (ProtoNix) EC tablet 40 mg 40 mg, oral, Daily before breakfast, First dose on Sat01/02/24 at 0700, Do not crush, chew, or split. 0545 (Given - Provider: Maria Alejandra Wells RN) 0505 (Given - Provider: Suzie Bello RN) 0504 (Given - Provider: Suzie Bello RN) polyethylene glycol (Glycolax, Miralax) packet 17 g 17 g, oral, Daily, First dose on Shira 01/02/24 at 0900, Bowel Regimen - for prevention of constipation. 0803 (Given - Provider: Elsy Santa RN) 0905 (Not Given - Provider: Elsy Santa RN - Reason: Patient/family refused) 0811 (Not Given - Provider: Yaritza Rae RN - Reason: Patient/family refused) PRN Medication Order 01/02/2024 01/03/2024 01/04/2024 diphenhydrAMINE (BENADryl) capsule 25 mg 25 mg, oral, Every 6 hours PRN, itching, Starting on Sat01/04/24 at 1116 hydrALAZINE (Apresoline) injection 10 mg 10 mg, intravenous, Every 8 hours PRN, SPB > 160, Starting on Sat01/03/24 at 1909 0504 (Given - Provider: Suzie Bello RN) HYDROmorphone (Dilaudid) injection 0.4 mg (CANCELED) 0.4 mg, intravenous, Every 3 hours PRN, pain severe (7-10), first line, Starting on Shira 01/02/24 at 1453 1510 (Given - Provider: Elsy Santa RN)2051 (Given - Provider: Suzie Bello RN) 0105 (Given - Provider: Suzie Bello RN)0505 (Given - Provider: Suzie Bello RN)0857 (Given - Provider: Elsy Santa RN) HYDROmorphone (Dilaudid) injection 0.5 mg 0.5 mg, intravenous, Every 3 hours PRN, pain severe (7-10), first line, Starting on Sat01/03/24 at 1215 1225 (Given - Provider: Elsy Santa RN)1527 (Given - Provider: Elsy Santa RN)2026 (Given - Provider: Suzie Bello RN) 0030 (Given - Provider: Suzie Bello RN)0504 (Given - Provider: Suzie Bello RN)0927 (Given - Provider: Yaritza Rae, DARSHAN)1314 (Given - Provider: Yaritza Rae RN) HYDROmorphone PF (Dilaudid) injection 0.2 mg (CANCELED) 0.2 mg, intravenous, Every 4 hours PRN, pain severe (7-10), first line, Starting on Shira 01/02/24 at 0945 1033 (Given - Provider: Elsy Santa RN) morphine injection 2 mg (CANCELED) 2 mg, intravenous, Every 4 hours PRN, pain severe (7-10), first line, Starting on Sat01/01/24 at 2225 0344 (Given - Provider: Maria Alejandra Wells RN)0757 (Given - Provider: Elsy Santa RN) ondansetron (Zofran) injection 4 mg(Linked Group 1) 4 mg, intravenous, Every 8 hours PRN, nausea/vomiting, first line, Starting on Sat01/01/24 at 2225, 1st Line. Give IV if patient is unable to take orally. If inadequate response within 60 minutes, proceed to next-line agent for same PRN reason or contact provider if no further options ordered. When administering via IV Push, administer over 3-5 minutes. ondansetron ODT (Zofran-ODT) disintegrating tablet 4 mg(Linked Group 1) 4 mg, oral, Every 8 hours PRN, nausea/vomiting, first line, Starting on Sat01/01/24 at 2225, 1st Line. Patient should allow tablet to dissolve on tongue. Do not remove from blister pack until just before administering. If inadequate response within 60 minutes, proceed to next-line agent for same PRN reason or contact provider if no further options ordered. oxyCODONE (Roxicodone) immediate release tablet 10 mg 10 mg, oral, Every 4 hours PRN, pain moderate (4-6), first line, Starting on Sat01/03/24 at 1215, If ordered PRN for pain, nurse is permitted to administer this medication for higher pain scores based on patient preference? Yes 1412 (Given - Provider: Elsy Santa RN)2133 (Given - Provider: Suzie Bello RN) 0804 (Given - Provider: Yaritza Rae, DARSHAN)1214 (Given - Provider: Yaritza Rae RN) prochlorperazine (Compazine) injection 10 mg(Linked Group 2) 10 mg, intravenous, Every 6 hours PRN, nausea/vomiting, first line, Starting on Shira 01/02/24 at 0946, Give IV if patient is unable to take orally. 163 (Given - Provider: Elsy Santa, DARSHAN) prochlorperazine (Compazine) suppository 25 mg(Linked Group 2) 25 mg, rectal, Every 12 hours PRN, nausea/vomiting, first line, Starting on Shira 01/02/24 at 0946, Give KS if patient is unable to take orally or receive by injection. 163 (See Alternative - Provider: Elsy Santa, DARSHAN) prochlorperazine (Compazine) tablet 10 mg(Linked Group 2) 10 mg, oral, Every 6 hours PRN, nausea/vomiting, first line, Starting on Shira 01/02/24 at 0946 163 (See Alternative - Provider: Elsy Santa, DARSHAN) zolpidem (Ambien) tablet 5 mg 5 mg, oral, Nightly PRN, sleep, Starting on Shira 01/02/24 at 1758 2051 (Given - Provider: Suzie Bello RN) 2025 (Given - Provider: Suzie Bello RN) Linked Groups Order Group 1: ondansetron ODT (Zofran-ODT) disintegrating tablet 4 mgJump to med 4 mg, oral, Every 8 hours PRN, nausea/vomiting, first line, Starting on Sat01/01/24 at 2225, 1st Line. Patient should allow tablet to dissolve on tongue. Do not remove from blister pack until just before administering. If inadequate response within 60 minutes, proceed to next-line agent for same PRN reason or contact provider if no further options ordered. Or ondansetron (Zofran) injection 4 mgJump to med 4 mg, intravenous, Every 8 hours PRN, nausea/vomiting, first line, Starting on Sat01/01/24 at 2225, 1st Line. Give IV if patient is unable to take orally. If inadequate response within 60 minutes, proceed to next-line agent for same PRN reason or contact provider if no further options ordered. When administering via IV Push, administer over 3-5 minutes. Group 2: prochlorperazine (Compazine) tablet 10 mgJump to med 10 mg, oral, Every 6 hours PRN, nausea/vomiting, first line, Starting on Shira 01/02/24 at 0946 Or prochlorperazine (Compazine) injection 10 mgJump to med 10 mg, intravenous, Every 6 hours PRN, nausea/vomiting, first line, Starting on Sat01/02/24 at 0946, Give IV if patient is unable to take orally. Or prochlorperazine (Compazine) suppository 25 mgJump to med 25 mg, rectal, Every 12 hours PRN, nausea/vomiting, first line, Starting on Shira 01/02/24 at 0946, Give KS if patient is unable to take orally or receive by injection. Scheduled Medication Order 01/06/2024 01/07/2024 01/08/2024 docusate sodium (Colace) capsule 100 mg 100 mg, oral, 2 times daily, First dose on Sat01/07/24 at 0900 0815 (Given - Provider: Марина Fried RN)195 (Given - Provider: Daysi Santos RN) 0819 (Given - Provider: Berenice Collazo RN)2100 (Due) enoxaparin (Lovenox) syringe 40 mg 40 mg, subcutaneous, Every 12 hours scheduled, First dose on Sat01/06/24 at 2205 2205 (Due) 0914 (Not Given - Provider: Марина Fried RN - Reason: Patient/family refused)1999 (Given - Provider: Daysi Santos RN) 0824 (Given - Provider: Berenice Collazo, RN)2100 (Due) FLUoxetine (PROzac) capsule 60 mg 60 mg, oral, Daily, First dose on Sat01/07/24 at 0900 0815 (Given - Provider: Марина Fried RN) 0824 (Given - Provider: Berenice Collazo, DARSHAN) HYDROmorphone (Dilaudid) injection 0.5 mg (COMPLETED) 0.5 mg, intravenous, Once, On Sat01/06/24 at 1935, For 1 dose 194 (Given - Provider: Miki Wright RN) lidocaine 4 % patch 1 patch 1 patch, transdermal, Administer over 12 Hours, Daily, First dose on Sat01/07/24 at 0900, Apply to lower back 913 (Not Given - Provider: Марина Fried RN - Reason: Patient/family refused) 0821 (Not Given - Provider: Berenice Collazo, DARSHAN - Reason: Patient/family refused) pantoprazole (ProtoNix) EC tablet 40 mg 40 mg, oral, Daily before breakfast, First dose on Sat01/07/24 at 0700, Do not crush, chew, or split. 0622 (Given - Provider: Alondra Gonzalez, DARSHAN) 0629 (Given - Provider: Mary Ann Castro LPN) PRN Medication Order 01/06/2024 01/07/2024 01/08/2024 hydrALAZINE (Apresoline) injection 10 mg 10 mg, intravenous, Every 8 hours PRN, SBP > 150, Starting on Sat01/07/24 at 2023 HYDROmorphone (Dilaudid) injection 0.5 mg 0.5 mg, intravenous, Every 4 hours PRN, pain severe (7-10), first line, Starting on Sat01/06/24 at 2143 0007 (Given - Provider: Natty Sandoval RN)0435 (Given - Provider: Alondra Gonzalez, DARSHAN)0931 (Given - Provider: Марина Fried RN)1314 (Given - Provider: Shirley Mills RN)1717 (Given - Provider: Марина Fried RN)2343 (Given - Provider: Daysi Santos, RN) 0632 (Given - Provider: Daysi Santos, RN)1127 (Given - Provider: Berenice Collazo, RN) methocarbamol (Robaxin) tablet 500 mg 500 mg, oral, Every 8 hours PRN, muscle spasms, Starting on Sat01/06/24 at 2200 0309 (Given - Provider: Natty Sandoval RN)2344 (Given - Provider: Daysi Santos, DARSHAN) naloxone (Narcan) nasal spray 4 mg 4 mg, nasal, As needed, opioid reversal, Starting on Sat01/06/24 at 2200, Give 4 mg (1 nasal spray) into one nostril. May repeat every 2-3 minutes if needed, alternating nostrils, until medical assistance becomes available. ondansetron (Zofran) injection 4 mg 4 mg, intravenous, Every 6 hours PRN, nausea/vomiting, first line, Starting on Sat01/06/24 at 2144, When administering via IV Push, administer over 3-5 minutes. 0007 (Given - Provider: Natty Sandoval RN) 0859 (Given - Provider: Berenice Collazo, RN) oxyCODONE (Roxicodone) immediate release tablet 10 mg 10 mg, oral, Every 4 hours PRN, pain moderate (4-6), first line, Starting on Sat01/06/24 at 2200 2204 (Given - Provider: Miki Wright, RN) 0309 (Given - Provider: Natty Sandoval, DARSHAN)0721 (Given - Provider: Alondra Gonzalez RN)1139 (Given - Provider: Марина Fried, DARSHAN)1999 (Given - Provider: Daysi Santos, DARSHAN) 0337 (Given - Provider: Mary Ann Castro LPN)0824 (Given - Provider: Berenice Collazo, DARSHAN) zolpidem (Ambien) tablet 5 mg 5 mg, oral, Nightly PRN, sleep, Starting on Sat01/07/24 at 2100 1959 (Given - Provider: Daysi Santos, DARSHAN) Scheduled Medication Order 01/08/2024 01/09/2024 01/10/2024 LORazepam (Ativan) injection 1 mg (COMPLETED) 1 mg, intravenous, Administer over 5 Minutes, Once, On Sat01/10/24 at 2000, For 1 dose, Please give just prior to MRI 2017 (Given - Provid er: Donna Del Rosario RN) morphine injection 4 mg (COMPLETED) 4 mg, intravenous, Once, On Sat01/10/24 at 2000, For 1 dose 2013 (Given - Provid er: Donna Del Rosario, DARSHAN) ondansetron (Zofran) injection 4 mg (COMPLETED) 4 mg, intravenous, Once, On Sat01/10/24 at 2000, For 1 dose, When administering via IV Push, administer over 3-5 minutes. 2011 (Given - Provid er: Donna Del Rosario RN) oxyCODONE (Roxicodone) immediate release tablet 5 mg (COMPLETED) 5 mg, oral, Once, On Sat01/10/24 at 2210, For 1 dose, If ordered PRN for pain, nurse is permitted to administer this medication for higher pain scores based on patient preference? Yes 222 (Given - Provid er: Donna Del Rosario RN) Scheduled Medication Order 01/11/2024 01/12/2024 01/13/2024 morphine injection 4 mg (COMPLETED) 4 mg, intramuscular, Once, On Sat01/13/24 at 1420, For 1 dose 1439 (Given - Provid er: Elke Alfaro RN) Scheduled Medication Order 01/19/2024 01/20/2024 01/21/2024 diazePAM (Valium) tablet 5 mg (COMPLETED) 5 mg, oral, Once, On Sat01/21/24 at 1725, For 1 dose 173 (Given - Provid er: Kvng Reynoso RN) ketorolac (Toradol) injection 30 mg (COMPLETED) 30 mg, intramuscular, Once, On Sat01/21/24 at 1715, For 1 dose 1737 (Given - Provid er: Kvng Reynoso RN) morphine injection 4 mg (COMPLETED) 4 mg, intramuscular, Once, On Sat01/21/24 at 1725, For 1 dose 173 (Given - Provid er: Kvng Reynoso RN) Scheduled Medication Order 01/22/2024 01/23/2024 01/24/2024 morphine injection 4 mg (COMPLETED) 4 mg, intramuscular, Once, On Sat01/24/24 at 2015, For 1 dose 2016 (Given - Provid er: Coty Diego LPN) Scheduled Medication Order 01/25/2024 01/26/2024 01/27/2024 dexAMETHasone (PF) (Decadron) injection 10 mg (COMPLETED) 10 mg, intramuscular, Once, On Sat01/26/24 at 1700, For 1 dose 1709 (Given - Provider: Aliyah Shannon, DARSHAN) HYDROmorphone (Dilaudid) injection 1 mg (COMPLETED) 1 mg, intravenous, Once, On Sat01/26/24 at 2340, For 1 dose 0000 (Given - Provid er: Zhang Romero RN) ketorolac (Toradol) injection 15 mg (COMPLETED) 15 mg, intramuscular, Once, On 01/26/24 at 1700, For 1 dose 1704 (Given - Provider: Aliyah Shannon RN) lidocaine 4 % patch 1 patch 1 patch, transdermal, Administer over 12 Hours, Daily, First dose on 01/26/24 at 1700, Apply to back. Patch will remain on for 12 hours, then removed for [address] patch directly over any surgical incisions or wounds. 1704 (Medication Applied - Provider: Aliyah Shannon RN) 0504 (Due: Medication Removed - Provider: Aliyah Shannon RN)0900 (Due) methocarbamol (Robaxin) tablet 1,000 mg (COMPLETED) 1,000 mg, oral, Once, On 01/26/24 at 1700, For 1 dose 170 (Given - Provider: Aliyah Shannon RN) morphine injection 2 mg (COMPLETED) 2 mg, intramuscular, Once, On 01/26/24 at 1755, For 1 dose 1817 (Given - Provider: Aliyah Shannon RN) morphine injection 4 mg (COMPLETED) 4 mg, intravenous, Once, On 01/26/24 at 2030, For 1 dose 2017 (Given - Provider: Natalee Claudio RN) Scheduled Medication Order 01/26/2024 01/27/2024 01/28/2024 docusate sodium (Colace) capsule 100 mg (CANCELED) 100 mg, oral, 2 times daily, First dose on Sat01/27/24 at 0900 0924 (Given - Provider: Iliana Fox RN) flu vaccine trivalent (PF) (Fluarix/Fluzone/Flulaval ) 6 months or greater injection 0.5 mL, intramuscular, During hospitalization, Starting on Sat01/27/24 at 0507, For 1 dose FLUoxetine (PROzac) capsule 60 mg 60 mg, oral, Daily, First dose on Sat01/27/24 at 0900 0924 (Given - Provider: Iliana Fox RN) 0823 (Given - Provider: Edwina Lopez RN) lidocaine 4 % patch 1 patch 1 patch, transdermal, Administer over 12 Hours, Daily, First dose on Sat01/27/24 at 1115, Apply to lumbar spine area; Patch will remain on for 12 hours, then removed for [address]. [address] patch directly over any surgical incisions or wounds. 1128 (Medication Applied - Provider: Iliana Fox RN - Comment: left lower back)2313 (Medication Removed - Provider: Mellissa Chung RN) 822 (Medication Applied - Provider: Edwina Lopez RN - Comment: left back)2022 (Due: Medication Removed - Provider: Edwina Lopez RN) methocarbamol (Robaxin) tablet 500 mg (CANCELED) 500 mg, oral, 3 times daily, First dose on Sat01/27/24 at 0900 0924 (Given - Provider: Iliana Fox RN) pantoprazole (ProtoNix) EC tablet 40 mg 40 mg, oral, Daily before breakfast, First dose on Sat01/27/24 at 0700, Do not crush, chew, or split. 612 (Given - Provider: Elke Gtz RN) 619 (Given - Provider: Mellissa Cuhng RN) polyethylene glycol (Glycolax, Miralax) packet 17 g 17 g, oral, Daily, First dose on Sat01/27/24 at 0900, Bowel Regimen - for prevention of constipation. 928 (Not Given - Provider: Iliana Fox RN - Reason: NPO) 822 (Given - Provider: Edwina Lopez RN) sennosides-docusate sodium (Judy-Colace) 8.6-50 mg per tablet 1 tablet 1 tablet, oral, 2 times daily, First dose on Sat01/27/24 at 1100 1102 (Given - Provider: Iliana Fox RN)2056 (Given - Provider: Mellissa Chung RN) 822 (Given - Provider: Edwina Lopez, DARSHAN)2099 (Due) topiramate (Topamax) tablet 25 mg 25 mg, oral, Nightly, First dose on Sat01/27/24 at 2099 2056 (Given - Provider: Mellissa Chung RN) 2099 (Due) PRN Medication Order 01/26/2024 01/27/2024 01/28/2024 alum-mag hydroxide-simeth (Mylanta) 200-200-20 mg/5 mL oral suspension 20 mL 20 mL, oral, Every 4 hours PRN, indigestion, heartburn, Starting on Sat01/27/24 at 0415 benzocaine-menthol (Cepastat Sore Throat) lozenge 1 lozenge 1 lozenge, Mouth/Throat, Every 2 hour PRN, sore throat, Starting on Sat01/27/24 at 0415 cyclobenzaprine (Flexeril) tablet 10 mg 10 mg, oral, 3 times daily PRN, muscle spasms, Starting on Sat01/27/24 at 1029 HYDROmorphone (Dilaudid) injection 1 mg 1 mg, intravenous, Every 6 hours PRN, pain severe (7-10), first line, Starting on Sat01/27/24 at 1028 1102 (Given - Provider: Iliana Fox RN)1935 (Given - Provider: Mellissa hCung RN) 0823 (Given - Provider: Edwina Lopez RN) hydrOXYzine HCL (Atarax) tablet 25 mg 25 mg, oral, 3 times daily PRN, anxiety, Starting on Sat01/27/24 at 0421 ketorolac (Toradol) injection 30 mg 30 mg, intravenous, Every 6 hours PRN, pain moderate (4-6), first line, Starting on Sat01/27/24 at 1029, For 5 days, Do not administer within 6 hours of other NSAIDs (such as ibuprofen or naproxen). 1514 (Given - Provider: Iliana Fox RN)2322 (Given - Provider: Mellissa Chung RN) lubricating eye drops ophthalmic solution 1 drop 1 drop, Both Eyes, As needed, dry eyes, Starting on Sat01/27/24 at 0415 melatonin tablet 3 mg 3 mg, oral, Nightly PRN, sleep, Starting on Sat01/27/24 at 0415 morphine injection 2 mg (CANCELED) 2 mg, intravenous, Every 4 hours PRN, pain severe (7-10), second line, pain breakthrough, Starting on Sat01/27/24 at 0414 0605 (Given - Provider: Elke Gtz RN) ondansetron (Zofran) injection 4 mg 4 mg, intravenous, Every 4 hours PRN, nausea/vomiting, first line, Starting on Sat01/27/24 at 0415, When administering via IV Push, administer over 3-5 minutes. oxyCODONE (Roxicodone) immediate release tablet 10 mg (CANCELED) 10 mg, oral, Every 8 hours PRN, pain severe (7-10), first line, Starting on Sat01/27/24 at 0421, If ordered PRN for pain, nurse is permitted to administer this medication for higher pain scores based on patient preference? Yes 0435 (Given - Provider: Elke Gtz, DARSHAN) oxyCODONE (Roxicodone) immediate release tablet 10 mg 10 mg, oral, Every 8 hours PRN, pain moderate (4-6), second line, Starting on Sat01/27/24 at 1042, If ordered PRN for pain, nurse is permitted to administer this medication for higher pain scores based on patient preference? Yes 1611 (Given - Provider: Iliana Fox RN) 0623 (Given - Provider: Mellissa Chung, DARSHAN) polyethylene glycol (Glycolax, Miralax) packet 17 g 17 g, oral, Daily PRN, constipation, Starting on Sat01/27/24 at 1030 simethicone (Mylicon) chewable tablet 80 mg 80 mg, oral, 4 times daily PRN, flatulence, Starting on Sat01/27/24 at 0415 sodium chloride (Carmi) 0.65 % nasal spray 1 spray 1 spray, Each Nostril, As needed, congestion, Starting on Sat01/27/24 at 0415 zolpidem (Ambien) tablet 5 mg 5 mg, oral, Nightly PRN, sleep, Starting on Sat01/27/24 at 0421 2316 (Given - Provider: Mellissa Chung, DARSHAN) Scheduled Medication Order 01/28/2024 01/29/2024 01/30/2024 HYDROmorphone (Dilaudid) injection 1 mg (COMPLETED) 1 mg, intramuscular, Once, On Shira 01/30/24 at 1140, For 1 dose 1149 (Given - Provid er: Justina Orozco, DARSHAN) ondansetron ODT (Zofran-ODT) disintegrating tablet 4 mg (COMPLETED) 4 mg, oral, Once, On Shira 01/30/24 at 1140, For 1 dose 1149 (Given - Provid er: Justina Orozco RN) Scheduled Medication Order 02/04/2024 02/05/2024 02/06/2024 povidone-iodine 5 % kit kit 1 Application (COMPLETED) 1 Application (1 kit), Topical, Once, On Shira 02/06/24 at 1345, For 1 dose, Preprocedure, Apply povidone iodine 5% to surgical area and bilateral nares (unless allergic) in pre-op the morning of surgery. 1414 (Given - Provid er: Aminata Spears RN) promethazine (Phenergan) 6.25 mg in sodium chloride 0.9% 50 mL IV (COMPLETED) 6.25 mg, intravenous, Administer over 15 Minutes, Once, On Shira 02/06/24 at 1800, For 1 dose, Recovery (only) 1758 (New Bag - Prov ider: Aminata Spears RN)1815 (Stopped - Provider: Aminata Spears RN) Continuous Medication Order 02/04/2024 02/05/2024 02/06/2024 lactated Ringer's infusion 20 mL/hr, intravenous, Continuous, Starting on Shira 02/06/24 at 1345, For 1 day, Preprocedure 1413 (New Bag - Prov ider: Aminata Spears RN)1430 (Continued by Anesthesia - Provider: Gerardo Peña APRN-[facility]) lactated Ringer's infusion 100 mL/hr, intravenous, Continuous, Starting on Shira 02/06/24 at 1730, For 1 day, Recovery (only) 1730 (Due) PRN Medication Order 02/04/2024 02/05/2024 02/06/2024 albuterol 2.5 mg /3 mL (0.083 %) nebulizer solution 2.5 mg 2.5 mg, nebulization, Once as needed, wheezing, Starting on Shira 02/06/24 at 1704, For 1 dose, Recovery (only) bupivacaine PF 0.5 % (Marcaine) 0.5 % (5 mg/mL) injection (CANCELED) As needed, Starting on Shira 02/06/24 at 1658, Intraprocedure 1658 (Given - Provid er: Judah Woodard MD) diphenhydrAMINE (BENADryl) injection 12.5 mg 12.5 mg, intravenous, Once as needed, itching, allergic reaction, Starting on Shira 02/06/24 at 1704, For 1 dose, Recovery (only) droperidol (Inapsine) injection 0.625 mg 0.625 mg, intravenous, Once as needed, nausea/vomiting, second line, Starting on Shira 02/06/24 at 1704, For 1 dose, Recovery (only), Monitor QTc while on therapy (2 lead monitoring) gelatin sponge,absorb-porcine (Gelfoam) sponge (CANCELED) As needed, Starting on Shira 02/06/24 at 1524, Intraprocedure 1524 (Given - Provid er: Judah Woodard MD) HYDROmorphone (Dilaudid) injection 0.25 mg 0.25 mg, intravenous, Every 5 min PRN, pain moderate (4-6), first line, Starting on Shira 02/06/24 at 1704, Recovery (only), Max total of 4 mg regardless of dose. HYDROmorphone (Dilaudid) injection 0.5 mg 0.5 mg, intravenous, Every 5 min PRN, pain severe (7-10), first line, Starting on Shira 02/06/24 at 1704, Recovery (only), Max total of 4 mg regardless of dose. 1719 (Given - Provid er: Aminata Spears RN) lidocaine-epinephrine (Xylocaine W/EPI) 1 %-1:100,000 injection (CANCELED) As needed, Starting on Shira 02/06/24 at 1524, Intraprocedure 1524 (Given - Provid er: Judah Woodard MD) methylPREDNISolone acetate (DEPO-Medrol) injection (CANCELED) As needed, Starting on Shira 02/06/24 at 1648, Intraprocedure 1648 (Given - Provid er: Judah Woodard MD) ondansetron (Zofran) injection 4 mg 4 mg, intravenous, Once as needed, nausea/vomiting, first line, Starting on Shira 02/06/24 at 1704, For 1 dose, Recovery (only), When administering via IV Push, administer over 3-5 minutes. oxyCODONE (Roxicodone) immediate release tablet 5 mg 5 mg, oral, Every 4 hours PRN, pain mild (1-3), first line, Starting on Shira 02/06/24 at 1704, Recovery (only), When able to take oral medications., If ordered PRN for pain, nurse is permitted to administer this medication for higher pain scores based on patient preference? Yes oxygen (O2) therapy inhalation, Continuous PRN - O2/gases, other, Starting on Shira 02/06/24 at 1704, Recovery (only), Device: Nasal Cannula, Rate in liters per minute: 2 LPM, Keep O2 Sat Above: 92% thrombin-bovine (JMI) 5,000 unit topical solution (CANCELED) As needed, Starting on Shira 02/06/24 at 1524, Intraprocedure 1524 (Given - Provid er: Judah Woodard MD) Scheduled Medication Order 02/07/2024 02/08/2024 02/09/2024 ketorolac (Toradol) injection 15 mg (COMPLETED) 15 mg, intramuscular, Once, On 02/09/24 at 1200, For 1 dose 1203 (Given - Provid er: Nilesh Fragoso RN) oxyCODONE (Roxicodone) immediate release tablet 10 mg (COMPLETED) 10 mg, oral, Once, On 02/09/24 at 1155, For 1 dose, If ordered PRN for pain, nurse is permitted to administer this medication for higher pain scores based on patient preference? Yes, Indications: pain 1204 (Given - Provid er: Nilesh Fragoso RN) oxyCODONE (Roxicodone) immediate release tablet 5 mg (COMPLETED) 5 mg, oral, Once, On 02/09/24 at 1340, For 1 dose, If ordered PRN for pain, nurse is permitted to administer this medication for higher pain scores based on patient preference? Yes, Indications: pain 1352 (Given - Provid er: Nilesh Fragoso RN) Ordered Prescriptions (unrec ognized section and [...] BE BASED ON THE PRIMARY CLINICAL RECORDS. [facility]. provides no warranty or guarantee of the accuracy or completeness of information in this document.
[2024-02-22] MEDS: OXYCODONE HCL/ACETAMINOPHEN 5MG/325MG 1 TAB PO (16:46)
== END 2024-02-22 16:49 | disposition home or self-care (01) ==
PROVIDERS: Emergency Provider Emergency Medicine
DX: M54.50 Low back pain, unspecified (principal); Z98.890 Other specified postprocedural states; F17.200 Nicotine dependence, unspecified, uncomplicated
CPT/HCPCS: 99283

== ENCOUNTER 2024-02-23 10:10 | Emergency (ER) | payer OTHER, SELFPAY ==
[2024-02-23 10:15] VITALS: BP 162/78; PULSE 106; TEMP 36.6; O2SAT 99; BMI 44.3
--- NOTE | 2024-02-23 10:22 | PC.NURSE ---
Pain to low back, recent back surgery, no redness, bruising or swelling. Ambulates without difficulty.
--- OUTSIDE RECORDS SUMMARY | 2024-02-23 10:24 | XMS_ITS | CCD ---
Author Organization [facility] Informat ion Partnership [facility] Care Team Providers Care Congressional Assistant Name Role Phone JULIENROSHAN RAMIREZ Primary Care Physician Jd Malone Unavailable Avery Goodman Unavailable [facility] Primary Care Provider DO Vlad Bhandari Emergency Provider MORGAN Romero Attending Provider DO José Miguel Mcnamara Emergency Provider GINGER Bennett Emergency Provider ELIZABETH Veliz Attending Provider DO Berto Villasenor Emergency Provider [facility] Primary Care Provider DR ZELALEM TRIVEDI Primary Care Unavailable JUAN TRUONG Admitting Unavailable JUAN TRUONG Attending Unavailable DR PROMISE MCKEON Consulting Unavailable JUAN TRUONG Consulting Unavailable ALMAS GRULLON Admitting Unavailable ALMAS RGULLON Attending Unavailable DR ZELALEM TRIVEDI Primary Care Unavailable JOON MOSLEY Consulting Unavailable LEILANI SOLOMON Consulting Unavailable [facility] Services Primary Care Provider GINGER Lamar Emergency Provider [phone] [facility] Primary Care Provider DO Berto Villasenor Emergency Provider ELIZABETH Veliz Attending Provider GINGER Lamar Emergency Provider [phone] DO Dalton Ceja Emergency Provider [phone] [facility] Primary Care Provider [phone] DO Cameron Rene Emergency Provider Unavai yolanda [facility] Primary Care Provider [phone] DO Berto Villasenor Emergency Provider MD Jorge Dan Emergency Provider [phone] Keke Skaggs Unavailable [facility] Primary Care Provider MD Jorge Dan Emergency Provider [phone] MD Keke Skaggs Attending Provider [phone] [facility] Mary Beth E Emergency Provider [facility] Primary Care Provider GINGER Bennett Emergency Provider Rose Marie Shepherd Unavailable ELIZABETH Veliz Attending Provider ELIZABETH Ferrell Emergency Provider MD Rena Belcher B Emergency Provider Glen Garza Unavailable NONE, XXXX Primary Care Physician Unavailab MD Jorge Samuel Emergency Provider [facility] Primary Care Provider Nathalia [facility] Mary Beth E Emergency Provider [phone] MD Joe Meza Attending Provider ELZBIETA Shepherd Attending Provider MD Glen Garza S Attending Provider [phone] DO Vlad Bhandari Emergency Provider ELIZABETH Carmichael Emergency Provider [phone] GINGER Dowd Emergency Provider MD Avery Berger Jr Emergency Provider [facility] Primary Care Provider GINGER Bennett Emergency Provider MD RASHAD MCKEON Attending Unavaila david [facility], Services Primary Care Provider Sebastienimceline, [facility] Mar Ybeth E Emergency Provider [facility] Services Primary Care Provider ELIZABETH Ferrell Emergency Provider [facility], Services Primary Care Provider Sebastienore, [facility] Mary Beth E Emergency Provider NO FAMILY, PHYSICIAN Primary Care Provider Unava alvaro Bermeo MD, [facility] Primary Care Provider [phone] [facility], Services Primary Care Provider ELIZABETH Ferrell Emergency Provider ELZBIETA Shepherd Attending Provider [facility], Services Primary Care Provider Nathalia, [facility] Mary Beth E Emergency Provider MD Glen Garza Attending Provider [phone] [facility], Services Primary Care Provider GINGER Bennett Emergency Provider DO Vlad Bhandari Emergency Provider [facility], Services Primary Care Provider ELIZABETH Ferrell Emergency Provider GINGER Bennett Emergency Provider ELIZABETH Veliz Primary Care Provider [phone] [facility], Services Primary Care Provider [phone] Joe Meza Unavailable [facility], Services Primary Care Provider Nathalia, [facility] Mary Beth E Emergency Provider NON STAFF Primary Care Provider UnavailELIZABETH Monson Emergency Provider Antonio Husain PA-C Primary Care Provider [facility] Primary Care Provider Nathalia, [facility] Mary Beth E Emergency Provider ELIZABETH Ferrell Emergency Provider [facility] Primary Care Provider [phone] ELZBIETA Shepherd Attending Provider DO Fiorella dupreerick Wendy Emergency Provider Nathalia, [facility] Mary Beth E Emergency Provider ELIZABETH Ferrell Emergency Provider GINGER Bennett Emergency Provider MD Glen Garza Attending Provider NO FAMILY, PHYSICIAN Primary Care Provider Unava ilable ELIZABETH Veliz Primary Care Provider NON STAFF Primary Care Provider ELIZABETH Valentin Emergency Provider [facility] Primary Care Provider ELZBIETA Shepherd Attending Provider DO Vlad Bhandari Emergency Provider [facility] Primary Care Provider ELIZABETH Ferrell Emergency Provider Nathalia [facility] Mary Beth E Emergency Provider [phone] ELZBIETA Shepherd Attending Provider DO Vlad Bhandari Emergency Provider NO FAMILY, PHYSICIAN Primary Care Provider Unava ilable Nathalia [facility] Mary Beth E Emergency Provider [phone] MD Glen Garza Attending Provider ELIZABETH Ferrell Emergency Provider ANTONIO HUSAIN Primary Care Physician ELIZABETH Veliz Primary Care Provider ELIZABETH Ferrell Emergency Provider [place], [employer] Mary Beth E Emergency Provider NO FAMILY, PHYSICIAN Primary Care Provider Unava ilable NON STAFF Primary Care Provider Unavailabl e Mariaelena TREASURY ANALYSTRadha Lewis Emergency Provider [place], [employer] Mary Beth E Emergency Provider [phone] [facility], Services Primary Care Provider NO FAMILY, PHYSICIAN Primary Care Provider Unava ilable ELIZABETH uHertae A Emergency Provider ELIZABETH Ferrell Emergency Provider Cheyanne Rosas Primary Care Physician NO FAMILY, PHYSICIAN Primary Care Provider Unava ilable [place], [employer] Mary Beth E Emergency Provider ELIZABETH Huerta Emergency Provider ELIZABETH Giraldo Emergency Provider Slime Sherwood DO Primary Care Provider ELIZABETH Ferrell Emergency Provider [facility], Services Primary Care Provider ELIZABETH Huertae Seng Emergency Provider ELIZABETH Giraldo Emergency Provider ELIZABETH Carmichael Emergency Provider DO Vlad Bhandari Emergency Provider [facility], Services Primary Care Provider [phone] ELIZABETH Ferrell Emergency Provider Bullgurpreet, [employer] Mary Beth E Emergency Provider Generic Provider MD, No Assigned Pcp Primary Car e Provider Unavailable [facility], Services Primary Care Provider ELIZABETH Carmichael Emergency Provider Unavailable Primary Care Provider Unavailabl e [facility], Services Primary Care Provider MD Abby Jensen Emergency Provider MD Peter Veliz Emergency Provider WICHO TUBBS Attending Unavailable BENJA MISHRA Attending Unavailable DO Dalton Ceja Emergency Provider [phone] DO José Miguel Mcnamara Emergency Provider [phone] PCP, No Primary Care Unavailable Flex Veliz Attending Unavailable PCP, No Primary Care Provider UnavailFlex Niño MD Emergency Provider Unavailable DO Vlad Bhandari Emergency Provider [phone] [facility] Primary Care Provider ELIZABETH Carmichael Emergency Provider [phone] Generic Provider MD, No Assigned Pcp Primary Car e Provider Unavailable Annette, Astrit H Attending Unavailable Jorge Mcintosh Attending Unavailable Hajdari, Astrit H Attending Unavailable Hazander, Astrit H Attending Unavailable NO FAMILY, PHYSICIAN Primary Care Provider Unava ilable ELIZABETH Ferrell Emergency Provider Amari SOTO, Marlee Rausch Primary Care Provider Josafat [facility], Tracee A Unavailable Unavaila Kristin Young Admitting Unavailable Kristin Bryant Attending Unavailable Ralph [employer], Cheyanne Primary Care Unavailable Ralph ARGUELLOP, Cheyanne Primary Care Unavailable Peter Chavez Admitting Unavailab Peter Michel Attending Unavailab loretta Rosas [employer], Cheyanne Primary Care Unavailable Daryl Cullen Admitting Unavailable Daryl Cullen Attending Unavailable Brianda DUPREE-David, Susu E Admitting Unavailable Brianda DUPREE-C, Susu E Attending Unavailable Ralph [employer], Cheyanne Primary Care Unavailable Raj Ayers Admitting Unavailable Raj Ayers Attending Unavailable Ralph [employer], Cheyanne Primary Care Unavailable Avelino RN, Natalia Unavailable Unavailable Avelino RN, Natalia Unavailable Unavailable [facility] Primary Care Provider Mono MILES, Abby Romero Attending Unavaila ble Unavailable, Physician Primary Care Unavailab loretta Linder 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, Daysi Muñoz Attending Unavailable Unavailable, Physician Primary Care Unavailab loretta Castañeda PA-C, Dory Garcia Attending Unavailseng Linder TREASURY ANALYST-Daysi GRAY Attending Unavailable ALLYSON NICOLE Attending Unavailable BEN URBINA Attending Unavailable KEKE PAYNE Attending Unavailable SAL JUAREZ Attending Unavailable BELKIS HERNANDEZ Attending Unavailable ANTONIO HUSAIN Primary Care Unavailable BELKIS HERNANDEZ Referring Unavailable ANTONIO HUSAIN Primary Care Unavailable DECLAN DEL ANGEL Attending Unavailable SLIME SHERWOOD Primary Care Unavailable Balbina Bryant Attending Unavailable [facility], Services Primary Care Provider DO Dalton Ceja Emergency Provider DO José Miguel Mcnamara Emergency Provider DO Vlad Bhandari Emergency Provider ELIZABETH Carmichael Emergency Provider NO FAMILY, PHYSICIAN Primary Care Provider Unava ilable ELIZABETH Ferrell Emergency Provider [phone] [facility] Lucero Emergency Provider [phone] Natalia You RN Unavailable Unavailable NO, PHYSICIAN [...] Unavailab le Marcial DO, Dalton Emergency Provider [phone] Naima DOJosé Miguel Emergency Provider Elisabet DO, Vlad Nguyen Emergency Provider Deb Carmichael APRN Emergency Provider [phone] Joshua Ferrell APRN Emergency Provider [phone] Nathalia [employer] Mary Beth Lucero Emergency Provider Narciso Bennett [...] HARMOHINDER S Primary Care Unavailab le SWEET, ELEK A Attending Unavailable GENERIC PROVIDER, NO ASSIGNED PCP Primary Care Unavailable FITZPATRICK, HARMOHINDER S Primary Care Unavailab le SWEET, ELKE A Consulting Unavailable SIMON DOMINGUEZ Admitting Unavailable GOUDIABY, SHELTON Attending Unavailable FITZPATRICK, HARMOHINDER S Primary Care Unavailab DINORA Fernandes Admitting Unavailable GOUDIABY, SHELTON Attending Unavailable JUDAH WOODARD Attending Unavailable FITZPATRICK, HARMOHINDER S Primary Care Unavailab le FITZPATRICK, HARMOHINDER S Primary Care Unavailab le FITZPATRICK, HARMOHINDER S Primary Care Unavailab le BIB BOWMAN Attending Unavailable Nikhil Tubbs Attending Unavailable Nikhil Tubbs Attending Unavailable Nikhil Tubbs Attending Unavailable Allergies Allergy Classification Reported Allergen(s) Allergy Type Date of Onset Reaction(s) Facility Acetaminophen / HYDROcodone (4 sources) Acetaminophen / HYDROcodone; Translations: [acetaminophen-hy drocodone] Drug Allergy 3 Hives [facility] NSAIDs (4 sources) nabumetone; Translations: [nabumetone] Drug Allergy 3 Nausea/vomitin g, Rash [facility] Opioid Agonists (1 source) HYDROcodone Drug Allergy 3 Hives, Unknown [facility] Work Phone: Penicillins (antibiotic) (4 sources) Penicillin; Translations: [penicillin] Drug Allergy 3 Hives, Unknown [facility] (20 sources) Acetaminophen / HYDROcodone; Translations: [Acetaminophen / Hydrocodone] [facility] (20 sources) Diclofenac Drug Allergy 4 Unknown, [facility] (20 sources) HYDROcodone; Translations: [Hydrocodone] Drug Allergy 4 Hives, Unknown, Rash [facility] (20 sources) Penicillins; Translations: [PENICILLINS] Propensity to adverse reactions 2 Hives, Unknown [facility] (20 sources) Penicillin; Translations: [penicillin] Drug Allergy 2 Unknown, [facility] (20 sources) Acetaminophen; Translations: [Acetaminophen] Drug Allergy 2 Unknown (qualifier value), Unknown [facility] Comment on above: stage 3 liver fibros is (20 sources) nabumetone; Translations: [nabumetone] Drug Allergy 3 Nausea/vomitin g, Rash [facility] (17 sources) Acetaminophen / HYDROcodone; Translations: [HYDROCODONE-ACET AMINOPHEN] Drug Allergy 3 [facility] (16 sources) Penicillin G; Translations: [PENICILLIN G] Drug Allergy 3 [facility] (20 sources) gabapentin; Translations: [GABAPENTIN] Drug Allergy 4 [facility] (9 sources) Acetaminophen; Translations: [Tylenol] Drug Allergy [facility] Repository (6 sources) pregabalin; Translations: [PREGABALIN] Drug Allergy 4 [facility] Work Phone: (1 source) Diclofenac Drug Allergy 4 [facility] [...] for 7 day(s), 6.7 gm, Refill(s) 0, [id number], 160, cm, 02/14/24 12:22:00 EST, Height/Length [...] for 3 day(s), 12 cap(s), Refill(s) 0, [id number], 160, cm, 08/12/23 20:54:00 EDT, Height/Length [...] day(s), # 6 tab(s), Refills(s) 0, Pharmacy: [facility]/pharmacy #[id number], 160, cm, 01/23/24 14:03:00 EDT, Height/Length [...] day(s), # 90 tab(s), Refills(s) 1, Pharmacy: [facility]/pharmacy #[id number], 160, cm, 08/14/23 15:27:00 EDT, [...] day(s), # 14 cap(s), Refills(s) 0, Pharmacy: [facility]/pharmacy #[id number], 160, cm, 02/16/24 9:23:00 EST, Height/Length [...] day(s), # 28 cap(s), Refills(s) 0, Pharmacy: [facility]/pharmacy #[id number], 160, cm, 09/25/23 11:43:00 EDT, [...] Discontinued 500 MG PO Q6H 40 August 28, 2017 11:00pm April 01, 2018 7:03pm ciprofloxacin 250 mg oral tablet (1 source) Quinolone Antimicrobial Start: 02-20-2024 End: 02-25-2024 take 1 tablet by mouth every twelve hours Cipro 250 mg Tab 250 mg = 1 tab(s), Oral, q12hr, X 5 day(s), # 10 tab(s), Refills(s) 0, Pharmacy: [facility]/pharmacy #[id number], 160, cm, 02/20/24 16:44:00 EST, Height/Length [...] day(s), # 21 tab(s), Refills(s) 0, Pharmacy: [facility]/pharmacy #[id number], 160, cm, 01/25/24 15:37:00 EDT, Height/Length [...] spasm, # 30 tab(s), Refills(s) 0, Pharmacy: [facility]/pharmacy #[id number], 160, cm, 09/21/23 11:20:00 EDT, [...] spasm, # 20 tab(s), Refills(s) 0, Pharmacy: [facility]/pharmacy #[id number], 160, cm, 08/15/23 22:27:00 EDT, [...] times daily as needed for 30 days 13 Mat, 2023 Active Start: 06-02-2021 End: 01-21-2022 apply 4 [...] QID, # 20 cap(s), Refills(s) 0, Pharmacy: [facility], 160, cm, 12/24/23 14:30:00 EDT, Height/Length Dosing, 115.2, kg, 12/24/23 14:30:00 EDT, Weight Dosing Start Date: 12/24/23 Status: Ordered Start: 06-22-2023 take 1 capsule by [facility] four times daily as needed Bentyl 10 mg Cap 10 mg = 1 cap(s), Oral, QID, PRN Other (see comment), For abdominal cramping, # 12 cap(s), Refills(s) 0, Pharmacy: [facility]/pharmacy #[id number], 160, cm, 06/22/23 14:24:00 EDT, [...] daily as needed for abdominal discomfort 6 3 March 14, 2022 7:45pm March 29, 2022 1:25pm diflunisal 500 mg oral tablet (20 sources) Nonsteroidal Anti-inflammatory Drug Start: 09-02-2023 take 1 tablet by mouth every twelve hours diflunisal 500 mg Tab 500 mg = 1 tab(s), Oral, q12hr, # 20 tab(s), Refills(s) 0, Pharmacy: [facility]/pharmacy #[id number], 160, cm, 09/02/23 18:11:00 EDT, Height/Length Dosing, 115.5, kg, 09/02/23 18:11:00 EDT, Weight Dosing Start Date: 09/02/23 Status: Ordered diphenhydrAMINE (17 sources) Histamine-1 Receptor Antagonist Start: 02-06-2024 12.5 mg, intravenous, Once as needed, itching, allergic reaction, Starting on Shira 02/06/24 at 1704, For 1 dose, Recovery (only) Start: 01-04-2024 take 1 capsule by [facility] every six hours as needed 25 mg, [...] Active docusate sodium 50 mg / sennosides, snf 8.6 mg oral tablet (6 sources) Start: [...] Daily, First dose on Sat01/02/24 at 0900 Start: 02-11-2023 take 1 tablet by mouth once da rocio FLUoxetine 60 mg oral tablet See Instructions, TAKE 1 TABLET BY MOUTH EVERY DAY, # 90 tab(s), Refills(s) 1, Pharmacy: [id number], 160, cm, 01/14/24 19:22:00 EDT, Height/Length Dosing, [...] Corticosteroid Start: 12-13-2023 Flonase 0.05 m g/inh [place] 2 spray(s), Topical, Daily, 16 gram, Refill(s) 0, each nostril, [facility], 160, cm, 12/13/23 13:44:00 EDT, Height/Length [...] End: 01-27-2024 1 mg, intravenous, Once, On Sat01/26/24 at 2340, For 1 dose Start: 01-06-2024 [...] day(s), # 120 tab(s), Refills(s) 3, Pharmacy: [facility]/pharmacy #[id number], 160, cm, 07/17/23 8:06:00 EDT, [...] TID, # 30 tab(s), Refills(s) 0, Pharmacy: [facility]/pharmacy #[id number], 160, cm, 07/17/23 8:06:00 EDT, Height/Length Dosing, 116.8, kg, 07/17/23 8:06:00 EDT, Weight Dosing Start Date: 07/17/23 Status: Ordered Start: 06-27-2023 take 1 tablet by wei th every six hours ibuprofen 600 mg Tab 600 mg = 1 tab(s), Oral, q6hr, Pt is to start this after she has completed the course of prednisone, # 40 tab(s), Refills(s) 0, Pharmacy: [facility]/pharmacy #[id number], 160, cm, 06/27/23 11:54:00 EDT, [...] for 28 day(s), 60 gm, Refill(s) 0, [facility]/pharmacy #[id number], 160, cm, 10/26/23 2:47:00 EDT, [...] hours on and 12 hours off daily, [id number], 160, cm, 01/12/23 20:29:00 EDT, Height/Length [...] day(s), # 21 tab(s), Refills(s) 0, Pharmacy: [facility]/pharmacy #[id number], 160, cm, 08/30/23 18:16:00 EDT, Height/Length Dosing, 115.5, kg, 08/30/23 18:16:00 EDT, Weight Dosing Start Date: 08/30/23 Stop Date: 09/05/23 Status: Ordered Start: 04-10-2023 End: 04-16-2023 Medrol Dosepack 4 mg Tab = 1 packet(s), Oral, As Directed, as directed on package labeling, X 6 day(s), # 21 tab(s), Refills(s) 0, Pharmacy: [facility]/pharmacy #[id number], 160, cm, 04/10/23 22:09:00 EST, Height/Length Dosing, 114.5, kg, 04/10/23 22:09:00 EST, Weight Dosing Start Date: 04/10/23 Stop Date: 04/16/23 Status: Ordered Start: 01-10-2023 End: 01-16-2023 Medrol 4 mg Tab = 1 packet(s ), Oral, As Directed, as directed on package labeling, X 6 day(s), # 21 tab(s), Refills(s) 0, Pharmacy: [facility]/pharmacy #[id number], 160, cm, 01/10/23 10:36:00 EDT, [...] q6hr, # 12 tab(s), Refills(s) 0, Pharmacy: [facility]/pharmacy #[id number], 160, cm, 08/12/23 20:54:00 EDT, Height/Length Dosing, 114.7, kg, 08/12/23 20:54:00 EDT, Weight Dosing Start Date: 08/12/23 Status: Ordered Start: 03-26-2023 End: 03-31-2023 take 1 tablet by mouth three times daily Reglan 10 mg Tab 10 mg = 1 tab(s), Oral, TID, X 5 day(s), # 15 tab(s), Refills(s) 0, Pharmacy: [facility]/pharmacy #[id number], 160, cm, 03/26/23 10:58:00 EST, [...] Q8H 6 November 14, 2021 12:00am Start: 02-02-2020 End: [...] ntinuous PRN - O2/gases, other, Starting on Sat02/06/24 at 1704, Recovery (only), Device: Nasal Cannula, [...] crush, chew, or split. polyethylene glycol 3350 [id number] mg powder for oral solution (3 sources) [...] Daily, # 15 tab(s), Refills(s) 0, Pharmacy: [facility]/pharmacy #[id number], 160, cm, 02/14/24 12:22:00 EST, Height/Length Dosing, [...] days., # 18 tab(s), Refills(s) 0, Pharmacy: [facility]/pharmacy #[id number], 160, cm, 01/25/24 15:37:00 EDT, Height/Length Dosing, 114.8, kg, 01/25/24 15:37:00 EDT, Weight Dosing Start Date: 01/25/24 Status: Ordered Start: 01-23-2024 End: 01-28-2024 take 1 tablet by mouth once daily predniSONE 50 mg Tab 50 mg = 1 tab(s), Oral, Daily, X 5 day(s), # 5 tab(s), Refills(s) 0, Pharmacy: [facility]/pharmacy #[id number], 160, cm, 01/23/24 14:03:00 EDT, Height/Length [...] days., # 18 tab(s), Refills(s) 0, Pharmacy: [facility], 160, cm, 12/13/23 13:44:00 EDT, Height/Length Dosing, 115.2, kg, 12/13/23 13:44:00 EDT, Weight Dosing Start Date: 12/13/23 Status: Ordered Start: 06-27-2023 predniSONE 10 mg Tab = 1 -, Oral, As Directed, Take 3 tabs by mouth daily x3 days, then 2 tabs daily x3 days, then 1 tab daily x3 days., # 18 tab(s), Refills(s) 0, Pharmacy: [facility]/pharmacy #[id number], 160, cm, 06/27/23 11:54:00 EDT, Height/Length Dosing, 117.2, kg, 06/27/23 11:54:00 EDT, Weight Dosing Start Date: 06/27/23 Status: Ordered Start: 06-11-2023 End: 06-16-2023 take 1 tablet by mouth once daily predniSONE 50 mg Tab 50 mg = 1 tab(s), Oral, Daily, X 5 day(s), # 5 tab(s), Refills(s) 0, [id number] 160, cm, 06/11/23 19:00:00 EDT, Height/Length [...] day(s), # 60 cap(s), Refills(s) 1, Pharmacy: [facility]/pharmacy #[id number], 160, cm, 07/15/23 13:55:00 EDT, [...] Nausea/Vomiting, # 6 EA, Refills(s) 0, Pharmacy: [facility]/pharmacy #[id number], 160, cm, 04/30/23 17:09:00 EST, [...] for 7 day(s), 14 tab(s), Refill(s) 0, [facility]/pharmacy #[id number], 160, cm, 09/25/23 11:43:00 EDT, [...] day(s), # 21 tab(s), Refills(s) 0, Pharmacy: [facility]/pharmacy #[id number], 160, cm, 02/04/24 17:06:00 EST, Height/Length [...] day(s), # 21 tab(s), Refills(s) 0, Pharmacy: [facility], 160, cm, 12/26/23 18:17:00 EDT, Height/Length Dosing, 114.8, kg, 12/26/23 18:17:00 EDT, Weight Dosing Start Date: 12/26/23 Stop Date: 01/02/24 Status: Ordered Start: 11-27-2023 End: 12-04-2023 take 1 tablet by mouth every eight hours tiZANidine 2 mg Tab 2 mg = 1 tab(s), Oral, q8hr, X 7 day(s), # 21 tab(s), Refills(s) 0, Pharmacy: [facility]/pharmacy #[id number], 160, cm, 11/27/23 17:53:00 EDT, Height/Length Dosing, 115.5, kg, 11/27/23 17:53:00 EDT, Weight Dosing Start Date: 11/27/23 Stop Date: 12/04/23 Status: Ordered Start: 06-27-2023 take 1 tablet by wei th every six hours as needed for pain tiZANidine 4 mg Tab 4 mg = 1 tab(s), Oral, q6hr, PRN Muscle pain, # 40 tab(s), Refills(s) 0, Pharmacy: [facility]/pharmacy #[id number], 160, cm, 06/27/23 11:54:00 EDT, Height/Length Dosing, 117.2, kg, 06/27/23 11:54:00 EDT, Weight Dosing Start Date: 06/27/23 Status: Ordered Start: 05-26-2023 End: 05-31-2023 take 1 tablet by mouth every eight hours Zanaflex 4 mg Tab 4 mg = 1 tab(s), Oral, q8hr, X 5 day(s), # 15 tab(s), Refills(s) 0, Pharmacy: [facility]/pharmacy #[id number], 160, cm, 05/26/23 19:39:00 EST, [...] Nausea/Vomiting, # 12 tab(s), Refills(s) 0, Pharmacy: [facility]/pharmacy #[id number], 160, cm, 06/22/23 14:24:00 EDT, Height/Length Dosing, 118.5, kg, 06/22/23 14:24:00 EDT, Weight Dosing Start Date: 06/22/23 Status: Ordered Start: 05-14-2023 take 1 tablet by wei th three times daily Zofran ODT 4 mg Tab-Dis 4 mg = 1 tab(s), Oral, TID, # 15 tab(s), Refills(s) 0, Pharmacy: [facility]/pharmacy #[id number], 160, cm, 05/14/23 10:27:00 EST, Height/Length Dosing, 115, kg, 05/14/23 10:27:00 EST, Weight Dosing Start Date: 05/14/23 Status: Ordered Start: 04-30-2023 take 1 tablet by wei every eight hours Zofran ODT 4 mg Tab-Dis 4 mg = 1 tab(s), Oral, q8hr, # 12 tab(s), Refills(s) 0, Pharmacy: [facility]/pharmacy #[id number], 160, cm, 04/30/23 17:09:00 EST, Height/Length Dosing, 114, kg, 04/30/23 17:09:00 EST, Weight Dosing Start Date: 04/30/23 Status: Ordered Start: 01-02-2023 take 1 tablet by wei every eight hours as needed for nausea Zofran ODT 4 mg Tab-Dis 4 mg = 1 tab(s), Oral, q8hr, PRN Nausea/Vomiting, # 12 tab(s), Refills(s) 0, Pharmacy: [facility]/pharmacy #[id number], 160, cm, 01/02/23 16:09:00 EDT, [...] daily, # 6 tab(s), Refills(s) 0, Pharmacy: [facility]/pharmacy #[id number], 160, cm, 02/14/24 12:22:00 EST, Height/Length Dosing, 114.8, kg, 02/14/24 12:22:00 EST, Weight Dosing Start Date: 02/14/24 Status: Ordered Start: 02-09-2020 End: 06-30-2020 take 2-5 tablets by mouth once daily Azithromycin (Zithromax Z-Ian) 250 mg tablet Discontinued 0 PO .COMPLEX February 09, 2020 12:00am June 30, 2020 [...] 450 MG PO Three times daily July 01, 2021 11:00pm January 21, 2022 7:16pm Start: 07-02-2021 End: 01-21-2022 take 450 mg by mouth three times daily Clindamycin Hcl Discontinued 450 MG PO Three times daily July 01, 2021 11:00pm January 21, 2022 7:16pm Start: 06-30-2020 End: 11-27-2020 take 1 capsule by mouth every eight hours Clindamycin Hcl 300 mg capsule Discontinued 300 MG PO Q8H 30 June 29, 2020 11:00pm November 27, 2020 5:42pm Start: 05-10-2020 End: 06-30-2020 take 1 capsule by mouth every six hours Clindamycin Hcl 300 mg capsule Discontinued 300 MG PO Q6H 40 10 May 10, 2020 12:00am June 30, 2020 [...] End: 01-01-2024 10 mg, intravenous, Once, On Sat01/01/24 at 1330, For 1 dose Start: 12-30-2023 [...] pain moderate (4-6), first line, Starting on 01/27/24 at 1029, For 5 days, Do not administer within 6 hours of other NSAIDs (such as ibuprofen or naproxen). Start: 01-26-2024 End: 01-26-2024 inject 15 mg by intramuscular injection once 15 mg, intramuscular, Once, On 01/26/24 at 1700, For 1 dose Start: 01-21-2024 End: 01-21-2024 inject 30 mg by intramuscular injection once 30 mg, intramuscular, Once, On Sat01/21/24 at 1715, For 1 dose Start: 06-15-2023 [...] day(s), # 21 tab(s), Refills(s) 0, Pharmacy: [facility]/pharmacy #[id number], 160, cm, 09/02/23 18:11:00 EDT, [...] day(s), # 112 tab(s), Refills(s) 0, Pharmacy: [facility]/pharmacy #[id number], 160, cm, 08/05/23 20:18:00 EDT, Height/Length Dosing, 114.7, kg, 08/05/23 20:18:00 EDT, Weight Dosing Start Date: 08/05/23 Stop Date: 08/19/23 Status: Ordered Start: 07-26-2023 End: 08-02-2023 take 1 tablet by mouth three times daily Robaxin-750 oral tablet 750 mg = 1 tab(s), Oral, TID, X 7 day(s), # 21 tab(s), Refills(s) 0, Pharmacy: [facility]/pharmacy #[id number], 160, cm, 07/26/23 11:12:00 EDT, Height/Length Dosing, 116.8, kg, 07/26/23 11:12:00 EDT, Weight Dosing Start Date: 07/26/23 Stop Date: 08/02/23 Status: Ordered Start: 06-15-2023 End: 06-22-2023 take 1 tablet by mouth three times daily Robaxin-750 oral tablet 1,500 mg = 2 tab(s), Oral, TID, X 7 day(s), # 42 tab(s), Refills(s) 0, Pharmacy: [facility]/pharmacy #[id number], 160, cm, 06/15/23 18:08:00 EDT, Height/Length Dosing, 118.5, kg, 06/15/23 18:08:00 EDT, Weight Dosing Start Date: 06/15/23 Stop Date: 06/22/23 Status: Ordered Start: 06-11-2023 End: 06-14-2023 take 1 tablet by mouth three times daily Robaxin 500 mg Tab 500 mg = 1 tab(s), Oral, TID, X 3 day(s), # 9 tab(s), Refills(s) 0, Pharmacy: [facility]/pharmacy #[id number], 160, cm, 06/11/23 19:00:00 EDT, [...] day(s), # 9 tab(s), Refills(s) 0, Pharmacy: [facility]/pharmacy #[id number], 160, cm, 04/10/23 22:09:00 EST, Height/Length Dosing, 114.5, kg, 04/10/23 22:09:00 EST, Weight Dosing Start Date: 04/10/23 Stop Date: 04/13/23 Status: Ordered Start: 04-02-2023 End: 04-05-2023 take 1 tablet by mouth three times daily Robaxin 500 mg Tab 500 mg = 1 tab(s), Oral, TID, X 3 day(s), # 9 tab(s), Refills(s) 0, [id number], 160, cm, 04/02/23 21:48:00 EST, Height/Length [...] day(s), # 56 tab(s), Refills(s) 0, [id number], 160, cm, 12/07/22 16:52:00 EDT, Height/Length [...] pain, # 20 tab(s), Refills(s) 0, Pharmacy: [facility]/pharmacy #[id number], 160, cm, 04/02/23 21:48:00 EST, Height/Length Dosing, 110, kg, 04/02/23 21:48:00 EST, Weight Dosing Start Date: 04/02/23 Status: Ordered Start: 12-23-2022 take 1 tablet by wei twice daily as needed for pain naproxen 500 mg Tab 500 mg = 1 tab(s), Oral, BID, PRN for pain, # 20 tab(s), Refills(s) 0, Pharmacy: [facility]/pharmacy #[id number], 160, cm, 12/23/22 17:18:00 EDT, [...] or chew. Active take 1 capsule by [facility] twice daily at mealtime omeprazole (PRILOSEC) 20 [...] Yes Start: 01-06-2024 take 1 tablet by wei [...] day(s), # 10 cap(s), Refills(s) 0, Pharmacy: [facility] #[id number], 160, cm, 12/26/23 18:17:00 EDT, Height/Length [...] 8-10, # 9 cap(s), Refills(s) 0, Pharmacy: [facility]/pharmacy #[id number], 160, cm, 05/12/23 10:26:00 EST, [...] 05-15-2023 Chronic Other aftercare (1 source) Other jail (current) drug therapy; Translations: [OTH PATROL JUDGE CURRENT DRUG THERAPY] Onset: 2 Episodic Other aftercare (1 source) Drug therapy finding; Translations: [Other terminologist (current) drug therapy] 01-15-2023 Episodic Other aftercare [...] Translations: [Unspecified fall, initial encounter] Onset: 09-19-2023 4 Episodic Fever of unknown origin (1 [...] Test Name Value Interpretation Reference Range Facility ED Clinical Summaryon 2023 ED Clinical Summary ED Clinical Summary [place] [id number] ED Clinical Summary Person Information Name: JERAD TRACY [place] Age: 48 Years : 1975 Sex: Female Language: Citizen Of [place] PCP: NONE, XXXX Marital Status: Phone: Visit Id: Visit Reason: Urinary frequency; Hematuria; Back pain; LOWER BACK PAIN, BLOOD IN URINE Speciality: Acuity: 4 Enc Type: Emergency Med Service: Emergency Arrival: 02/20/2024 16:40:44 Discharge: 02/20/2024 17:29:34 LOS: 000 00:49 Checkin: 02/20/2024 16:40:44 Checkout: 02/20/2024 17:29:34 Dispo Type: Home (Routine DC) EVENTS: Event Name Event Status Request Date/Time Start Date/Time Complete Date/Time Arrive Complete 02/20/2024 16:40:44 02/20/2024 16:40:44 02/20/2024 16:40:44 Document Home Meds Request 02/20/2024 16:40:44 Triage Complete 02/20/2024 16:40:44 02/20/2024 16:44:33 02/20/2024 16:44:33 Bed Assign Complete 02/20/2024 16:42:22 02/20/2024 16:42:22 02/20/2024 16:42:22 Dr Exam Complete 02/20/2024 16:42:22 02/20/2024 16:42:30 02/20/2024 16:42:30 RN Exam Complete 02/20/2024 16:42:23 02/20/2024 16:45:35 02/20/2024 16:45:35 Registration Complete 02/20/2024 16:42:30 02/20/2024 16:43:26 02/20/2024 16:43:26 Reg Complete Request 02/20/2024 16:43:26 Reg Bed Request Complete 02/20/2024 16:43:26 02/20/2024 16:43:26 02/20/2024 16:43:26 Pending Labs Complete 02/20/2024 16:47:20 02/20/2024 17:06:42 Pending Labs Inlab 02/20/2024 17:06:43 02/20/2024 17:06:43 Lab Inlab 02/20/2024 17:06:43 02/20/2024 17:06:43 Meds Admin Complete 02/20/2024 17:23:44 02/20/2024 17:27:46 Discharge Complete 02/20/2024 17:23:50 02/20/2024 17:29:52 02/20/2024 17:29:52 Transfer Complete 02/20/2024 17:29:52 02/20/2024 17:29:52 02/20/2024 17:29:52 ADDRESS: [address] [place] [address] [facility] [id number] PHYS DOC NOTES: MEDICAL INFORMATION: Prescriptions Given: New Medications [id number], [address] [place] [id number], [phone] ciprofloxacin (Cipro 250 mg Tab) 1 Tablets By Mouth every 12 hours for 5 Days. Refills: 0. Medications to Continue with No Changes Other Medications albuterol (Albuterol (Eqv-ProAir HFA) 90 mcg/inh inhalation aerosol) 2 Puffs Inhalation every 6 hours for 7 Days. Refills: 0. azithromycin (azithromycin 250 mg Tab) 250 Milligram By Mouth As Directed. Take two tabs by mouth on day one, then one tab daily. Refills: 0. cefdinir (cefdinir 300 mg Cap) 1 Capsules By Mouth every 12 hours for 7 Days. Refills: 0. cyclobenzaprine (cyclobenzaprine 10 mg Tab) [...] day. Refills: 0. PATIENT EDUCATION INFORMATION: Instructions: Urinary Tract Infection, Adult Follow up: With: Address: When: XXXX NONE , [place] In 3 days 02/23/2024 Comments: Call the office of your primary [...] Seek immediate medical attention if you develop: worsening abdominal pain, new or worsening nausea, new or worsening vomiting, new or worsening diarrhea, chest pain, shortness of breath, pain with urination, problems urinating, fever, chills, weakness, or any new or worsening symptoms. DIAGNOSIS: Acute UTI Normal [facility] ED Note-Physicianon 02-20-20 ED Note-Physician ED Note-Physician Basic Information Time Seen: Nikhil Tubbs DOAdrien 02/20/2024 16:42 Chief Complaint patient presents with lower back pain, hematuria and increased frequency that started this AM History of Present Illness 48-year-old female to the emergency department chief complaint of left-sided lower back pain. She reports she is also had some increased frequency and dysuria. No fever, sweats, chills. No nausea vomiting or abdominal pain. Otherwise at her baseline health. Review of Systems A 10 point review of systems is negative except as noted above. Medical and Surgical History: Reviewed and noted Social history: Lives at home Tobacco: Denies Physical Exam Vitals & Measurements T: 36.7 ???C(Oral) HR: 83(Peripheral) RR: 20 BP: 164/92 SpO2: 99% HT: 160 cm WT: 115 kg BMI: 44.92 VITALS: I have reviewed the triage vital signs. GENERAL: Well developed, well appearing adult in no acute distress. NEURO: Alert and oriented. Moves all extremities. Face is symmetric and expressive. EYES: PERRL. No scleral icterus or conjunctival [...] is soft and non-tender. Normoactive bowel sounds. Mild left flank tenderness. EXTREMITIES: Symmetric muscle bulk. No joint swelling. No clubbing, cyanosis, or deformity. SKIN: Warm and dry. Normal turgor. No rash or lesions appreciated. PSYCH: Mood, affect, and interaction is appropriate to the setting. Medical Decision Making She has a UTI on urinalysis. Will cover with Cipro given the left-sided flank pain. Percocet was given here. She has a prescription for Percocet at home already. Return precautions were discussed. All questions were answered. The patient was discharged home. Assessment/Plan Acute UTI (N39.0: Urinary tract infection, site not specified) Orders: acetaminophen-oxycodone , 1 tab(s), Tab, Oral, Once, Stop date 02/20/24 17:23:00 EST, STAT, Start date 02/20/24 17:23:00 EST ciprofloxacin, 250 mg = 1 tab(s), Oral, q12hr, X 5 day(s), # 10 tab(s), Refills(s) 0, Pharmacy: [facility]/pharmacy #[id number], 160, cm, 02/20/24 16:44:00 EST, Height/Length Dosing, 115, kg, 02/20/24 16:44:00 EST, Weight Dosing ciprofloxacin, 250 mg = 1 tab(s), Tab, Oral, Once, Stop date 02/20/24 17:23:00 EST, STAT, Start date 02/20/24 17:23:00 EST, 02/20/24 17:23:00 EST UA with Cult Rflx Urine Culture Medications Administered Given Cipro 250 mg Tab, 250 mg, Oral Percocet 5 mg-325 mg oral tablet, 1 tab(s), Oral Disposition Plan Patient Discharge Condition Stable Discharge Disposition Home Discharge Prescription List Prescriptions Cipro 250 mg Tab, 250 mg= 1 tab(s), Oral, q12hr Follow-up With When Contact Information XXXX NONE In 3 days 02/23/2024 EST [place] Additional Instructions: Call the office of your [...] Seek immediate medical attention if you develop: worsening abdominal pain, new or worsening nausea, new or worsening vomiting, new or worsening diarrhea, chest pain, shortness of breath, pain with urination, problems urinating, fever, chills, weakness, or any new or worsening symptoms. Patient Education Urinary Tract Infection, Adult Problem List/Past Medical History Ongoing Arthritis [...] Medications Inpatient No active inpatient medications Home Albuterol (Eqv-ProA (more content not included)... Normal [facility] Comment on above: Result Comment: Elec tronically Signed By: Nikhil Tubbs DO\.br\Date and Time Signed: 02/20/24 18:37 EST ED Patient Summaryon 024 ED Patient Summary ED Patient Summary [place] [id number] Patient Discharge Instructions Person Information Name: JERAD TRACY Age: 48 Years Arrival Date: 02/20/2024 16:40:44 Discharge Diagnosis: Acute UTI Primary Care Physician: NONE, XXXX Provider Information Primary Provider: Nikhil Tubbs DO [employer] Director:Fernando The exam and treatment you received in the Emergency Department were for an urgent problem and are not intended as complete care. It is important that you follow up with a doctor, nurse practitioner, or physician???s dermatology physician assistant for ongoing care. If your symptoms become worse or you do not improve as expected and you are unable to reach your usual health care provider, you should return to the Emergency Department. We are available 24 hours a day. JERAD TRACY has been given the following list of patient education materials, prescriptions and follow-up instructions: Follow-up Instructions: With: Address: When: XXXX NONE , [place] In 3 days 02/23/2024 Comments: Call the office of your primary [...] Seek immediate medical attention if you develop: worsening abdominal pain, new or worsening nausea, new or worsening vomiting, new or worsening diarrhea, chest pain, shortness of breath, pain with urination, problems urinating, fever, chills, weakness, or any new or worsening symptoms. In the event that this physician does not participate in your insurance network, please consult with your insurance company to find a nearby participating provider. Patient Education Materials: Urinary Tract Infection, Adult A MESSAGE TO ALL PATIENTS REGARDING OPIOIDS PRESCRIPTION OPIOIDS: WHAT YOU NEED TO KNOW Prescription opioids can be used to help relieve nxpbdvzd-af-ggzqgb pain and are often prescribed following a [...] to help manage your pain that don???t involv (more content not included)... Normal [facility] UA with Cult Rflxon 02-20-20 24 Bilirubin Ql (U) Negative Normal Negative [facility] Comment on above: Performed By: #### 4 [id number] #### [facility] [address] [place] [address] Clarity (U) Clear Normal Clear [facility] Comment on above: Performed By: #### 4 [id number] #### [facility] [address] [place] [address] Color (U) Light-Yellow Normal Yellow [facility] Comment on above: Result Comment: Micr oscopic readings are only performed on those samples that meet specific criteria set forth by [facility]. Performed By: #### 4 [id number] #### [facility] [address] [place] [address] Epithelial cells.squamous Auto (Urine sed) [#/Area] 5-8 Invalid Interpretation Code [facility] Comment on above: Performed By: #### 4 [id number] #### [facility] [address] [place] [address] Glucose Ql (U) Negative Normal Negative [facility] Comment on above: Performed By: #### 4 [id number] #### [facility] [address] [place] [address] Hemoglobin Auto test strip (U) [Mass/Vol] 1+ mg/dL Abnormal Negative [facility] Comment on above: Performed By: #### 4 [id number] #### [facility] [address] [place] [address] Ketones Auto test strip Ql (U) Negative Normal Negative [facility] Comment on above: Performed By: #### 4 [id number] #### [facility] [address] [place] [address] Leukocyte esterase Auto test strip Ql (U) 75 Robert/uL Abnormal Negative [facility] Comment on above: Performed By: #### 4 [id number] #### [facility] [address] [place] [address] Mucus Auto Ql (U) Trace Normal Negative [facility] Comment on above: Performed By: #### 4 [id number] #### [facility] [address] [place] [address] Nitrite Auto test strip Ql (U) Negative Normal Negative [facility] Comment on above: Performed By: #### 4 [id number] #### [facility] [address] [place] [address] pH (U) 7.0 [pH] Invalid Interpretation Code 5.0-9.0 [facility] Comment on above: Performed By: #### 4 [id number] #### [facility] [address] [place] [address] Protein Ql (U) Negative Normal Negative [facility] Comment on above: Performed By: #### 4 [id number] #### [facility] [address] [place] [address] RBC Ql (U) 4-20 Abnormal 0-3 [facility] Comment on above: Performed By: #### 4 [id number] #### [facility] [address] [place] [id number] Specific gravity (U) [Rel density] 1.018 Invalid Interpretation Code 1.005-1.030 [facility] Comment on above: Performed By: #### 4 [id number] #### [facility] [address] [place] [id number] Urobilinogen (U) [Mass/Vol] Negative Normal Negative [facility] Comment on above: Performed By: #### 4 [id number] #### [facility] [address] [place], [place] [id number] WBC Auto (Urine sed) [#/Area] 26-30 Abnormal 0-5 [facility] Comment on above: Performed By: #### 4 [id number] #### [facility] [address] [place], [place] [id number] Type of Urine collection method Clean Catch Normal [facility] Comment on above: Performed By: #### 4 [id number] #### [facility] [address] [place], [place] [id number] URINALYSISOrdered By: SYSTEM SYSTEM on 02-20-2024 Bilirubin Ql (U) Negative Normal Negativemg/ d L [facility] UA Auto SS Clarity (U) Clear (02/20/24 4:50 PM) Normal Clear [facility] UA Auto SS Color (U) Light-Yellow 1 (02/20/24 4:50 PM) Normal Yellow [facility] UA Auto SS Comment on above: Interpretive Data: M icroscopic readings are only performed on those samples that meet specific criteria set forth by [facility]. Epithelial cells.squamous Auto (Urine sed) [#/Area] 5-8 graded/HPF Invalid Interpretation Code [facility] UA Auto SS Glucose Ql (U) Negative Normal Negativemg/d L [facility] UA Auto SS Hemoglobin Auto test strip [...] 4-20 graded/HPF Invalid Interpretation Code 0-3graded/HP F [facility] UA Auto SS Specific gravity (U) [Rel density] 1.018 *NA* (02/20/24 4:50 PM) Invalid Interpretation Code 1.005 - 1.030 [facility] UA Auto SS Urobilinogen (U) [Mass/Vol] Negative Normal Negativemg/d L [facility] UA Auto SS WBC Auto (Urine sed) [#/Area] 26-30 graded/HPF Invalid Interpretation Code 0-5graded/HP F [facility] UA Auto SS URINALYSISOrdered By: Joan Garnett on 02-20-2024 UA Spec Desc Clean Catch (02/20/24 4:50 PM) Normal [facility] UA Auto SS BMPon 02-16-2024 Anion gap [Moles/Vol] 10 mmol/L Normal 6-16 [facility] Comment on above: Performed By: #### 2 [id number] #### [facility] [address] [place] [address] Calcium [Mass/Vol] 8.8 mg/dL Low 8.9-11.1 [facility] Comment on above: Performed By: #### 2 [id number] #### [facility] [address] [place] [address] Chloride [Moles/Vol] 108 mmol/L Normal 101-111 [facility] Comment on above: Performed By: #### 2 [id number] #### [facility] [address] [place] [address] CO2 [Moles/Vol] 28 mmol/L Normal 21-31 [facility] Comment on above: Performed By: #### 2 [id number] #### [facility] [address] [place] [address] Creatinine [Mass/Vol] 0.7 mg/dL Normal 0.5-1.3 [facility] Comment on above: Performed By: #### 2 [id number] #### [facility] [address] [place] [address] Glucose [Mass/Vol] 96 mg/dL Normal 55-199 [facility] Comment on above: Performed By: #### 2 [id number] #### [facility] [address] [place] [address] Potassium [Moles/Vol] 3.8 mmol/L Normal 3.5-5.3 [facility] Comment on above: Performed By: #### 2 [id number] #### [facility] [address] [place] [address] Sodium [Moles/Vol] 142 mmol/L Normal 135-145 [facility] Comment on above: Performed By: #### 2 [id number] #### [facility] [address] [place] [address] Urea nitrogen [Mass/Vol] 17 mg/dL Normal 5-21 [facility] Comment on above: Performed By: #### 2 [id number] #### [facility] [address] [place] [address] Urea nitrogen/Creatinine [Mass ratio] 24 No Units High 10-20 [facility] Comment on above: Performed By: #### 2 [id number] #### [facility] [address] [place] [address] CBC w/ Auto Diffon 4 Basophils/100 WBC (Bld) 0.4 % Normal 0.0-2.0 [facility] Comment on above: Performed By: #### 2 [id number] #### [facility] [address] [place] [address] Basophils/Leukocytes Auto (Bld) [Pure # fraction] 0.0 E9/L Normal 0.0-0.2 [facility] Comment on above: Performed By: #### 2 [id number] #### [facility] [address] [place] [address] Eosinophils (Bld) [#/Vol] 0.1 E9/L Normal 0.0-0.5 [facility] Comment on above: Performed By: #### 2 [id number] #### [facility] [address] [place] [address] Eosinophils/100 WBC (Bld) 1.7 % Normal 0.0-8.0 [facility] Comment on above: Performed By: #### 2 [id number] #### [facility] [address] [place] [address] Erythrocyte distribution width (RBC) [Ratio] 14.8 % High 10.9-14.2 [facility] Comment on above: Performed By: #### 2 [id number] #### [facility] [address] [place] [address] Hematocrit (Bld) [Volume fraction] 40.2 % Normal 34.0-46.0 [facility] Comment on above: Performed By: #### 2 [id number] #### [facility] [address] [place] [address] Hemoglobin (Bld) [Mass/Vol] 13.6 g/dL Normal 12.0-16.0 [facility] Comment on above: Performed By: #### 2 [id number] #### [facility] [address] [place] [address] Lymphocytes (Bld) [#/Vol] 2.3 E9/L Normal 1.0-4.0 [facility] Comment on above: Performed By: #### 2 [id number] #### [facility] [address] [place] [address] Lymphocytes/100 WBC (Bld) 29.1 % Normal 14.0-50.0 [facility] Comment on above: Performed By: #### 2 [id number] #### [facility] [address] [place] [address] MCH (RBC) [Entitic mass] 30.6 pg Normal 27.0-34.0 [facility] Comment on above: Performed By: #### 2 [id number] #### [facility] [address] [place] [address] MCHC (RBC) [Mass/Vol] 33.9 g/dL Normal 31.4-36.0 [facility] Comment on above: Performed By: #### 2 [id number] #### [facility] [address] [place] [address] MCV (RBC) [Entitic vol] 90.1 fL Normal 80.0-100.0 [facility] Comment on above: Performed By: #### 2 [id number] #### [facility] [address] [place] [address] Monocytes (Bld) [#/Vol] 0.5 E9/L Normal 0.2-1.0 [facility] Comment on above: Performed By: #### 2 [id number] #### [facility] [address] [place] [address] Neutrophils (Bld) [#/Vol] 4.9 E9/L Normal 2.0-7.5 [facility] Comment on above: Performed By: #### 2 [id number] #### [facility] [address] [place] [address] Neutrophils/100 WBC (Bld) 62.2 % Normal 36.0-75.0 [facility] Comment on above: Performed By: #### 2 [id number] #### [facility] [address] [place] [address] Platelet 351.0 E9/L Normal 150.0-500.0 [facility] Comment on above: Performed By: #### 2 [id number] #### [facility] [address] [place] [address] Platelet mean volume (Bld) [Entitic vol] 7.8 fL Normal 6.4-10.8 [facility] Comment on above: Performed By: #### 2 [id number] #### [facility] [address] [place] [address] RBC (Bld) [#/Vol] 4.5 E12/L Normal 4.3-5.9 [facility] Comment on above: Performed By: #### 2 [id number] #### [facility] [address] [place] [address] WBC corrected for nucl RBC Auto (Bld) [#/Vol] 7.9 E9/L Normal 4.0-11.0 [facility] Comment on above: Performed By: #### 2 [id number] #### [facility] [address] [place] [address] CHEMISTRYOrdered By: SYSTEM SYSTEM on 02-16-2024 Troponin [...] Sensitivity Troponin I Instructions For Use, [place]lyn [place], October 2017) Anion gap [Moles/Vol] 10 mmol/L [...] Katlyn Edson, October 2017) Urea nitrogen [Mass/Vol] 17 mg/dL Normal 5 - 21 mg/dL Remisol Chem Urea nitrogen/Creatinine [Mass ratio] 24 mg/mg High 10 - 20 Remisol Chem COAGULATIONOrdered By: Radha Vivar on 02-16-2024 aPTT Coag (PPP) [Time] 29.0 s Normal 25.1 - 36.5 second(s) [facility] [place] Auto Coag Comment [...] same coagulation reagent and instrumentation as [facility] [place]. Currently there are no coagulation studies available worldwide for children to 14 days, and no normal ranges. Heparin therapeutic range (represented by Anti-Factor Xa activity of 0.2 - 0.4 U/mL) corresponds to PTT of 56.6 - 109.0 sec. INR Coag (PPP) [Relative time] 1.01 {INR} Invalid Interpretation Code [facility] [place] [facility] Comment on above: Interpretive Data: I NR results are specifically intended to assess patients stabilized on long-term Anticoagulation therapy suggested INR s Less Intensive Anticoagulation 2.0 3.0 Conventional Range 3.0 4.5 PT Coag (PPP) [Time] 11.3 s Normal 9.4 - 1 2.5 second(s) [facility] [place] Auto Coag Comment [...] same coagulation reagent and instrumentation as [facility] [place]. Currently there are no coagulation studies available worldwide for children to 14 days, and no normal ranges. ED Clinical Summaryon 2023 ED Clinical Summary ED Clinical Summary [place] [id number] ED Clinical Summary Person Information Name: JERAD TRACY/[place] Age: 48 Years : 1975 Sex: Female Language: Citizen Of [place] PCP: Cheyanne Rincon Marital Status: Phone: Visit [...] 02/16/2024 11:52:04 02/16/2024 11:52:04 02/16/2024 11:52:04 ADDRESS: [address] [place] [phone] PHYS DOC NOTES: MEDICAL INFORMATION: Prescriptions Given: New Medications [facility]/pharmacy #[id number], [address], [place] [id number], [phone] cefdinir (cefdinir 300 mg Cap) 1 Capsules [...] Costochondritis Follow up: With: Address: When: Cheyanne Rosas [address] [facility] A, [address] [place] [id number] [employer] (1Induction Manager In 3 days 02/19/2024 DIAGNOSIS: Costochondritis; Cough; Pneumonia; Shortness of breath Normal [facility] ED Note-Physicianon 02-16-20 ED Note-Physician ED Note-Physician Basic Information Time Seen: Gumaro MILES, Manuel Hernandez. 02/16/2024 09:19 Chief Complaint Pt reports recent [...] did just have lower back surgery at [facility] but had a CTA of the chest [...] X 7 (more content not included)... Normal [facility] Comment on above: Result Comment: Elec tronically Signed By: Manuel Naik PA-C\.br\Date and Time Signed: 02/16/24 15:47 EST\.br\Electronically Co-Signed By: Nikhil Tubbs DO\.br\Date and Time Co-Signed: 02/16/24 18:31 EST ED Patient Summaryon 024 ED Patient Summary ED Patient Summary [address] [address] Patient Discharge Instructions Person Information Name: JERAD TRACY Age: 48 Years Arrival Date: 02/16/2024 09:17:08 Discharge Diagnosis: Costochondritis; Cough; Pneumonia; Shortness of breath Primary Care Physician: Cheyanne Rincon Provider Information Primary Provider: Nikhil Tubbs DO [employer] Director:Manuel Naik PA-C The exam and treatment you received in the Emergency Department were for an urgent problem and are not intended as complete care. It is important that you follow up with a doctor, nurse practitioner, or physician???s dermatology physician assistant for ongoing care. If your symptoms [...] Instructions: With: Address: When: Cheyanne Rosas [address] [facility] A, [place] [phone] Business (1) In 3 days 02/19/2024 In the event that this physician does not participate in your insurance network, please consult with your insurance company to find a nearby participating provider. Patient Education Materials: Community-Acquired Pneumonia, Adult; Costochondritis A MESSAGE TO ALL PATIENTS REGARDING OPIOIDS PRESCRIPTION OPIOIDS: WHAT YOU NEED TO KNOW Prescription opioids can be used to help relieve jungzooj-ss-sleyap pain and are often prescribed following a [...] overdose. ??? (more content not included)... Normal [facility] HEMATOLOGYOrdered By: SYSTEM SYSTEM on 02-16-2024 Basophils/100 [...] Coag (PPP) [Time] 29.0 second(s) Normal 25.1-36.5 [facility] Comment on above: Result Comment: [...] same coagulation reagent and instrumentation as [facility] [place]. Currently there are no coagulation studies available worldwide for children to 14 days, and no normal ranges. Heparin therapeutic range (represented by Anti-Factor Xa activity of 0.2 - 0.4 U/mL) corresponds to PTT of 56.6 - 109.0 sec. Performed By: #### 1 [id number] #### [facility] [address] [place] [address] INR Coag (PPP) [Relative time] 1.01 {INR} Invalid Interpretation Code [facility] Comment on above: Result Comment: INR results are specifically intended to assess patients stabilized on long-term Anticoagulation therapy suggested INR???s ???Less Intensive Anticoagulation??? 2.0 ??? 3.0 Conventional Range 3.0 ??? 4.5 Performed By: #### 1 [id number] #### [facility] [address] [place] [address] PT Coag (PPP) [Time] 11.3 second(s) Normal 9.4-12.5 [facility] Comment on above: Result Comment: [...] same coagulation reagent and instrumentation as [facility] [place]. Currently there are no coagulation studies available worldwide for children to 14 days, and no normal ranges. Performed By: #### 1 [id number] #### [facility] [address] [place] [address] Troponin 0 Hr.on 02-16-2024 Troponin HS 3.10 pg/mL Low 10.10-27.10 [facility] Comment on above: Result Comment: The 95% CI (Confidence Interval) PPV (Positive Predictive Value) for myocardial infarction in females is 38 pg/mL, in males 51 pg/mL. The results should be used in conjunction with clinical conditions of myocardial infarction. (Access High Sensitivity Troponin I Instructions For Use, [employer], October 2017) Performed By: #### 1 [id number] #### [facility] [address] [place] [address] Troponin 1 Hr.on 02-16-2024 Troponin HS 3.70 pg/mL Low 10.10-27.10 [facility] Comment on above: Result Comment: The 95% CI (Confidence Interval) PPV (Positive Predictive Value) for myocardial infarction in females is 38 pg/mL, in males 51 pg/mL. The results should be used in conjunction with clinical conditions of myocardial infarction. (Access High Sensitivity Troponin I Instructions For Use, [employer], October 2017) Performed By: #### 1 [id number] #### [facility] [address] [place] [address] XR Chest Single Viewon 02-15 XR Chest [...] mGy = na DAP = na Normal [facility] eGFRon 02-16-2024 eGFR 107 mL/min/1.73 m2 Normal >=59 [facility] Comment on above: Performed By: #### 1 [id number] #### [facility] [address] [place] [address] BMPon 02-14-2024 Anion gap [Moles/Vol] 10 mmol/L Normal 6-16 [facility] Comment on above: Performed By: #### 2 [id number] #### [facility] [address] [place] [address] Calcium [Mass/Vol] 8.4 mg/dL Low 8.9-11.1 [facility] Comment on above: Performed By: #### 2 [id number] #### [facility] [address] [place] [address] Chloride [Moles/Vol] 105 mmol/L Normal 101-111 [facility] Comment on above: Performed By: #### 2 [id number] #### [facility] [address] [place] [address] CO2 [Moles/Vol] 29 mmol/L Normal 21-31 [facility] Comment on above: Performed By: #### 2 [id number] #### [facility] [address] [place] [address] Creatinine [Mass/Vol] 0.7 mg/dL Normal 0.5-1.3 [facility] Comment on above: Performed By: #### 2 [id number] #### [facility] [address] [place] [address] Glucose [Mass/Vol] 82 mg/dL Normal 55-199 [facility] Comment on above: Performed By: #### 2 [id number] #### [facility] [address] [place] [address] Potassium [Moles/Vol] 4.0 mmol/L Normal 3.5-5.3 [facility] Comment on above: Performed By: #### 2 [id number] #### [facility] [address] [place] [address] Sodium [Moles/Vol] 140 mmol/L Normal 135-145 [facility] Comment on above: Performed By: #### 2 [id number] #### [facility] [address] [place] [address] Urea nitrogen [Mass/Vol] 15 mg/dL Normal 5-21 [facility] Comment on above: Performed By: #### 2 [id number] #### [facility] [address] [place] [address] Urea nitrogen/Creatinine [Mass ratio] 21 No Units High 10-20 [facility] Comment on above: Performed By: #### 2 [id number] #### [facility] [address] [place] [address] CBC w/ Auto Diffon 4 Basophils/100 WBC (Bld) 0.5 % Normal 0.0-2.0 [facility] Comment on above: Performed By: #### 2 [id number] #### [facility] [address] [place] [address] Basophils/Leukocytes Auto (Bld) [Pure # fraction] 0.1 E9/L Normal 0.0-0.2 [facility] Comment on above: Performed By: #### 2 [id number] #### [facility] [address] [place] [address] Eosinophils (Bld) [#/Vol] 0.3 E9/L Normal 0.0-0.5 [facility] Comment on above: Performed By: #### 2 [id number] #### [facility] [address] [place] [address] Eosinophils/100 WBC (Bld) 3.0 % Normal 0.0-8.0 [facility] Comment on above: Performed By: #### 2 [id number] #### [facility] [address] [place] [address] Erythrocyte distribution width (RBC) [Ratio] 14.6 % High 10.9-14.2 [facility] Comment on above: Performed By: #### 2 [id number] #### [facility] [address] [place] [address] Hematocrit (Bld) [Volume fraction] 40.7 % Normal 34.0-46.0 [facility] Comment on above: Performed By: #### 2 [id number] #### [facility] [address] [place] [address] Hemoglobin (Bld) [Mass/Vol] 13.6 g/dL Normal 12.0-16.0 [facility] Comment on above: Performed By: #### 2 [id number] #### [facility] [address] [place] [address] Lymphocytes (Bld) [#/Vol] 1.9 E9/L Normal 1.0-4.0 [facility] Comment on above: Performed By: #### 2 149515 #### [facility] [address] [place] [address] Lymphocytes/100 WBC (Bld) 17.5 % Normal 14.0-50.0 [facility] Comment on above: Performed By: #### 2 [id number] #### [facility] [address] [place] [address] MCH (RBC) [Entitic mass] 30.4 pg Normal 27.0-34.0 [facility] Comment on above: Performed By: #### 2 837388 #### [facility] [address] [place] [address] MCHC (RBC) [Mass/Vol] 33.4 g/dL Normal 31.4-36.0 [facility] Comment on above: Performed By: #### 2 [id number] #### [facility] [address] [place] [address] MCV (RBC) [Entitic vol] 90.9 fL Normal 80.0-100.0 [facility] Comment on above: Performed By: #### 2 [id number] #### [facility] [address] [place] [address] Monocytes (Bld) [#/Vol] 0.6 E9/L Normal 0.2-1.0 [facility] Comment on above: Performed By: #### 2 199514 #### [facility] [address] [place] [address] Neutrophils (Bld) [#/Vol] 8.1 E9/L High 2.0-7.5 [facility] Comment on above: Performed By: #### 2 [id number] #### [facility] [address] [place] [address] Neutrophils/100 WBC (Bld) 73.8 % Normal 36.0-75.0 [facility] Comment on above: Performed By: #### 2 160250 #### [facility] [address] [place] [address] Platelet mean volume (Bld) [Entitic vol] 8.4 fL Normal 6.4-10.8 [facility] Comment on above: Performed By: #### 2 878779 #### [facility] [address] [place] [address] Platelets (Bld) [#/Vol] 293.0 E9/L Normal 150.0-500.0 [facility] Comment on above: Performed By: #### 2 [id number] #### [facility] [address] [place] [address] RBC (Bld) [#/Vol] 4.5 E12/L Normal 4.3-5.9 [facility] Comment on above: Performed By: #### 2 [id number] #### [facility] [address] [place] [address] WBC corrected for nucl RBC Auto (Bld) [#/Vol] 10.9 E9/L Normal 4.0-11.0 [facility] Comment on above: Performed By: #### 2 [id number] #### [facility] [address] [place] [address] CHEMISTRYOrdered By: SYSTEM SYSTEM on 02-14-2024 Troponin [...] Instructions For Use, Katlyn Edson, October 2017) Albumin [Mass/Vol] 3.8 g/dL Normal [...] Katlyn Edson, October 2017) Urea nitrogen [Mass/Vol] 15 mg/dL Normal 5 - 21 mg/dL Remisol Chem Urea nitrogen/Creatinine [Mass ratio] 21 mg/mg High 10 - 20 Remisol Chem COAGULATIONOrdered By: Vanna Fairchild on 02-14-2024 aPTT Coag (PPP) [Time] 31.4 s Normal 25.1 - 36.5 second(s) [facility] [place] Auto Coag Comment [...] same coagulation reagent and instrumentation as [facility] [place]. Currently there are no coagulation studies available worldwide for children to 14 days, and no normal ranges. Heparin therapeutic range (represented by Anti-Factor Xa activity of 0.2 - 0.4 U/mL) corresponds to PTT of 56.6 - 109.0 sec. INR Coag (PPP) [Relative time] 0.95 {INR} Invalid Interpretation Code [facility] [place] [facility] Comment on above: Interpretive Data: I NR results are specifically intended to assess patients stabilized on long-term Anticoagulation therapy suggested INR s Less Intensive Anticoagulation 2.0 3.0 Conventional Range 3.0 4.5 PT Coag (PPP) [Time] 10.6 s Normal 9.4 - 1 2.5 second(s) [facility] [place] Auto Coag Comment [...] same coagulation reagent and instrumentation as [facility] [place]. Currently there are [...] Mcintosh FINAL REPORT Dictated: 02/14/2024 3:28 pm Nadine DO, Francisco J J Signed (Electronic Signature): 02/14/2024 3:28 pm Signed by: Francisco J Mccoy DO Transcribed by: KIERRA Technologist: SAMANTHA Technical Comments GFR (mL/min/1/73m2) >60 Contrast: Isovue 370 Contrast amount in ml's: 66 Normal [facility] ED Clinical Summaryon 2023 ED Clinical Summary ED Clinical Summary [place] [id number] ED Clinical Summary Person Information Name: JERAD TRACY [place] Age: 48 Years : 1975 Sex: Female Language: Citizen Of [place] PCP: Cheyanne Rincon Marital Status: Visit Id: [...] 02/14/2024 15:53:21 02/14/2024 15:53:21 02/14/2024 15:53:21 [facility] [id number] PHYS DOC NOTES: MEDICAL INFORMATION: Prescriptions Given: New Medications [facility]/pharmacy #[id number], [address], [place] [id number], [phone] albuterol (Albuterol (Eqv-ProAir HFA) 90 mcg/inh inhalation aerosol) 2 Puffs Inhalation every 6 hours for 7 Days. Refills: 0. azithromycin (azithromycin 250 mg Tab) 250 Milligram By Mouth As Directed. Take two tabs by mouth on day one, then one tab daily. Refills: 0. Medications to Continue Taking That Have Changed [facility]/pharmacy #[id number], [address], [place] [id number], [phone] START: predniSONE (predniSONE 20 mg Tab) 3 [...] Instructions: Follow up: With: Address: When: Cheyanne Rosas [address], [address], [address] [address] Business (1) In 3 days DIAGNOSIS: Pleurisy; Pneumonia Normal [facility] ED Note-Physicianon 02-14-20 ED Note-Physician ED Note-Physician [...] had back surgery on February 05 at [facility]. Shortly after this she developed a cough [...] for 7 day(s), 6.7 gm, Refill(s) 0, [facility]/pharmacy #[id number], 160, cm, 02/14/24 12:22:00 EST, Height/Length Dosing, 114.8, kg, 02/14/24 12:22:00 EST, Weight Dosing albuterol-ipratropium, 3 mL, Soln-Inh, Inhalation, Once, Stop date 02/14/24 13:14:00 EST, STAT, Start date 02/14/24 13:14:00 EST azithromycin, 250 mg, Oral, As Directed, Take two tabs by mouth on day one, then one tab daily, # 6 tab(s), Refills(s) 0, Pharmacy: [facility]/pharmacy #[id number], 160, cm, 02/14/24 12:22:00 EST, Height/Length Dosing, 114.8, kg, 02/14/24 12:22:00 EST, Weight Dosing ketorolac, 30 mg = 1 mL, Injection, IV, Once, Stop date 02/14/24 15:36:00 EST, STAT, Start date 02/14/24 15:36:00 EST, 02/14/24 15:36:00 EST predniSONE, 3, Oral, Daily, # 15 tab(s), Refills(s) 0, Pharmacy: [facility]/pharmacy #[id number], 160, cm, 02/14/24 12:22:00 EST, Height/Length [...] Information Cheyanne Rosas In 3 days [address] [facility] A [place] [phone] Business (1) Additional Instructions: Problem List/Past Medical [...] C Liver (more content not included)... Normal [facility] Comment on above: Result Comment: Elec tronically Signed By: Jorge Mcintosh DO\.rufino\Date and Time Signed: 02/14/24 15:43 EST ED Patient Education Noteon 02-14-2024 ED Patient Education Note ED Patient Education Note Normal [facility] ED Patient Summaryon 024 ED Patient Summary ED Patient Summary [address] [address] Patient Discharge Instructions Person Information Name: JERAD TRACY Age: 48 Years Arrival Date: 02/14/2024 12:14:28 Discharge Diagnosis: Pleurisy; Pneumonia Primary Care Physician: Ralph Cheyanne BEYER Provider Information Primary Provider: Jorge Mcintosh DO [employer] Director:None The exam and treatment you received in the Emergency Department were for an urgent problem and are not intended as complete care. It is important that you follow up with a doctor, nurse practitioner, or physician???s dermatology physician assistant for ongoing care. If your symptoms [...] Instructions: With: Address: When: Cheyanne Rosas [address] [facility], [address], [place] [phone] Business (1) In 3 days In the event that this physician does not participate in your insurance network, please consult with your insurance company to find a nearby participating provider. Patient Education Materials: A MESSAGE TO ALL PATIENTS REGARDING OPIOIDS PRESCRIPTION OPIOIDS: WHAT YOU NEED TO KNOW Prescription opioids can be used to help relieve hihroles-px-otnkwn pain and are often prescribed following a [...] be struggling with addiction, tell your health technical healthcare consultant and ask for guidance or call [facility] (more content not included)... Normal [facility] HEMATOLOGYOrdered By: SYSTEM SYSTEM on 02-14-2024 Basophils/100 [...] 02-14-2024 Albumin [Mass/Vol] 3.8 g/dL Normal 3.3-5.0 [facility] Comment on above: Performed By: #### 2 [id number] #### [facility] [address] [place] [address] Albumin/Globulin (S) [Mass conc ratio] 1.2 Normal 1.1-2.2 [facility] Comment on above: Performed By: #### 2 [id number] #### [facility] [address] [place] [address] ALP [Catalytic activity/Vol] 84 Int._Unit/L Normal 21-98 [facility] Comment on above: Performed By: #### 2 [id number] #### [facility] [address] [place] [address] ALT No additional P-5'-P [Catalytic activity/Vol] 18 Int._Unit/L Normal 6-46 [facility] Comment on above: Performed By: #### 2 [id number] #### [facility] [address] [place] [address] AST [Catalytic activity/Vol] 17 Int._Unit/L Normal 5-43 [facility] Comment on above: Performed By: #### 2 [id number] #### [facility] [address] [place] [address] Bilirubin [Mass/Vol] 0.4 mg/dL Normal 0.0-1.1 [facility] Comment on above: Performed By: #### 2 [id number] #### [facility] [address] [place] [address] Bilirubin.direct [Mass/Vol] 0.1 mg/dL Normal 0.0-0.4 [facility] Comment on above: Performed By: #### 2 [id number] #### [facility] [address] [place] [address] Bilirubin.indirect [Mass or moles/Vol] 0.3 mg/dL Normal 0.1-0.9 [facility] Comment on above: Performed By: #### 2 [id number] #### [facility] [address] [place] [address] Globulin (S) [Mass/Vol] 3.2 g/dL Normal 1.4-4.0 [facility] Comment on above: Performed By: #### 2 [id number] #### [facility] [address] [place] [address] Protein [Mass/Vol] 7.0 g/dL Normal 6.0-7.8 [facility] Comment on above: Performed By: #### 2 [id number] #### [facility] [address] [place] [address] Lipase Levelon 02-14-2024 Lipase [Catalytic activity/Vol] 9 U/L Low 13-58 [facility] Comment on above: Performed By: #### 2 [id number] #### [facility] [address] [place] [address] PT & PTTon 02-14-2024 aPTT Coag (PPP) [Time] 31.4 second(s) Normal 25.1-36.5 [facility] Comment on above: Result Comment: [...] same coagulation reagent and instrumentation as [facility] [place]. Currently there are no coagulation studies available worldwide for children to 14 days, and no normal ranges. Heparin therapeutic range (represented by Anti-Factor Xa activity of 0.2 - 0.4 U/mL) corresponds to PTT of 56.6 - 109.0 sec. Performed By: #### 1 [id number] #### [facility] [address] [place] [address] INR Coag (PPP) [Relative time] 0.95 {INR} Invalid Interpretation Code [facility] Comment on above: Result Comment: INR results are specifically intended to assess patients stabilized on long-term Anticoagulation therapy suggested INR???s ???Less Intensive Anticoagulation??? 2.0 ??? 3.0 Conventional Range 3.0 ??? 4.5 Performed By: #### 1 [id number] #### [facility] [address] [place] [address] PT Coag (PPP) [Time] 10.6 second(s) Normal 9.4-12.5 [facility] Comment on above: Result Comment: [...] same coagulation reagent and instrumentation as [facility] [place]. Currently there are no coagulation studies available worldwide for children to 14 days, and no normal ranges. Performed By: #### 1 [id number] #### [facility] [address] [place] [address] Troponin 0 Hr.on 02-14-2024 Troponin HS 2.60 pg/mL Low 10.10-27.10 [facility] Comment on above: Result Comment: The 95% CI (Confidence Interval) PPV (Positive Predictive Value) for myocardial infarction in females is 38 pg/mL, in males 51 pg/mL. The results should be used in conjunction with clinical conditions of myocardial infarction. (Access High Sensitivity Troponin I Instructions For Use, [employer], October 2017) Performed By: #### 1 [id number] #### [facility] [address] [place] [address] Troponin 1 Hr.on 02-14-2024 Troponin HS 2.60 pg/mL Low 10.10-27.10 [facility] Comment on above: Result Comment: The 95% CI (Confidence Interval) PPV (Positive Predictive Value) for myocardial infarction in females is 38 pg/mL, in males 51 pg/mL. The results should be used in conjunction with clinical conditions of myocardial infarction. ([place] High Sensitivity Troponin I Instructions For Use, [employer], October 2017) Performed By: #### 1 [id number] #### [facility] [address] [place] [address] XR Chest 2 Viewson XR Chest 2 [...] Gillian Gamboa MD Transcribed by: KIERRA Technologist: [place] Technical Comments Radiation Dose: Ka,r in mGy = . DAP = . Normal [facility] eGFRon 02-14-2024 eGFR 107 mL/min/1.73 m2 Normal >=59 [facility] Comment on above: Performed By: #### 1 [id number] #### [facility] [address] [place] [address] ED Note-Physicianon 02-07-20 ED Note-Physician ED Note-Physician [...] disks in her lower back with a [facility] neurosurgeon. She states that she is unable [...] her lower back in 2 days with [facility] neurosurgery. She is unable to take [...] day(s), # 21 tab(s), Refills(s) 0, Pharmacy: [facility]/pharmacy #[id number], 160, cm, 02/04/24 17:06:00 EST, Height/Length [...] Rosas In 3 days 02/07/2024 EST [address], [address] [address]- Business (1) Additional Instructions: Patient Education Acute Back Pain, Adult Attestation Patient seen and evaluated by the physician dermatology physician assistant. Attending physician was present in the emergency department and supervised care. This visit was performed by both the physician and an APC. I performed all aspects of the MDM as documented. This report was transcribed using voice recognition software. Every effort was made to ensure accuracy, however, inadvertently computerized tissue inserter mistakes may be present. Appropriate healthcare PPE was used in evaluating this patient. The patient was placed in a mask. The healthcare provider was wearing mask, gloves, and utilizing proper hand hygiene. All equipment was properly cleansed. I performed a substantive part of the MDM during the patient???s E/M visit. I personally made or approved the docume (more content not included)... [facility] Comment on above: Result Comment: Elec tronically Signed By: Manuel Naik PA-C\.br\Date and Time Signed: 02/04/24 20:45 EST\.br\Electronically Co-Signed By: Jorge Mcintosh DO\.br\Date and Time Co-Signed: 02/07/24 06:59 EST Blood type and Indirect anti body screen panel (Bld)on 02-06-2024 ABO group Nom (Bld) [facility] Blood group antibody screen Ql Negative [facility] D Ag Ql (Bld) Positive [facility] ABO group Nom (Bld) O [facility] Comment on above: Performed By: #### 3 4532-2 #### DINORA Rausch ([id number]) [facility] ([facility]) [address] [place] [address] Blood group antibody screen Ql Negative [facility] Comment on above: Performed By: #### 3 4532-2 #### DINORA Rausch ([id number]) [facility] ([facility]) [address] [place] [address] D Ag Ql (Bld) Positive [facility] Comment on above: Performed By: #### 3 4532-2 #### DINORA Rausch ([id number]) [facility] ([facility]) [address] [place] [address] [place] FL LESS THAN 1 HOURon 2023 FL LESS THAN 1 HOUR These images are not reportable by radiology and will not be interpreted by Radiologists. [facility] RF Unspecified body region L ess than 1 hour Views during surgeryon 02-06-2024 These images are not reportable by radiology and will not be interpreted by Radiologists. IMAGING VERAB/VERIFY ABORHon 024 ABO group Nom (Bld) O Normal [facility] Comment on above: Order Comment: Thi s is for confirming/verifying history of ABORh on file for transfusion of blood products. If this is not for transfusion, please order an ABO/RH [[id number]]. If you have any questions or unsure what to order, please call the blood bank. Performed By: #### V ERAB #### DINORA Rausch ([id number]) [facility] ([facility]) [address] [place] [address] D Ag Ql (Bld) Positive [facility] Comment on above: Order Comment: Thi s is for confirming/verifying history of ABORh on file for transfusion of blood products. If this is not for transfusion, please order an ABO/RH [[id number]]. If you have any questions or unsure what to order, please call the blood bank. Performed By: #### V ERAB #### DINORA Rausch ([id number]) [facility] ([facility]) [address] [place] [address] VERIFY ABO/Rh Group Teston 1 04-07-2023 ABO group Nom (Bld) O [facility] D Ag Ql (Bld) Positive [facility] ED Clinical Summaryon 2023 ED Clinical Summary ED Clinical Summary [place] [address] ED Clinical Summary Person Information Name: JERAD TRACY [place] Age: 48 Years : 1975 Sex: Female Language: Citizen Of [place] PCP: Cheyanne Rincon Status: Visit Id: Visit Reason: Back pain; [...] 18:26:07 02/04/2024 18:26:07 02/04/2024 18:26:07 [facility] [id number] PHYS DOC NOTES: MEDICAL INFORMATION: Prescriptions Given: New Medications [facility]/pharmacy #[id number], [address] [place] [id number], [phone] tizanidine (tiZANidine 2 mg Tab) 1 Tablets [...] Follow up: With: Address: When: [facility]yanne Rosas [address] [place] [place] [address] [address] [address] Business (1) In 3 days 02/07/2024 DIAGNOSIS: Back pain; Lumbar radiculopathy; Lumbar spinal stenosis Normal [facility] ED Patient Summaryon 024 ED Patient Summary ED Patient Summary [address] [address] Patient Discharge Instructions Person Information Name: JERAD TRACY Age: 48 Years Arrival Date: 02/04/2024 16:57:07 Discharge Diagnosis: Back pain; Lumbar radiculopathy; Lumbar spinal stenosis Primary Care Physician: Cheyanne Rincon Provider Information Primary Provider: Jorge Mcintosh DO [employer] Director:Manuel Naik PA-C The exam and treatment you received in the Emergency Department were for an urgent problem and are not intended as complete care. It is important that you follow up with a doctor, nurse practitioner, or physician???s dermatology physician assistant for ongoing care. If your symptoms [...] Instructions: With: Address: When: Cheyanne Rosas [address], [facility] A, [address] [address] Business (1) In 3 days 02/07/2024 In the event that this physician does not participate in your insurance network, please consult with your insurance company to find a nearby participating provider. Patient Education Materials: Acute Back Pain, Adult A MESSAGE TO ALL PATIENTS REGARDING OPIOIDS PRESCRIPTION OPIOIDS: WHAT YOU NEED TO KNOW Prescription opioids can be used to help relieve znilcwdx-yw-logjzu pain and are often prescribed following a [...] from the Food and Drug Administration (www.fda.gov/Drugs/Reso Juan Miguelu). ??? Visit www.cdc.gov/drugoverdos e to learn about the risks of opioids abuse and overdose. ??? If you believe you may be strug (more content not included)... Normal [facility] Staphylococcus aureus.methic illin resistant isolateon 01-29-2024 MRSA isol Org specific cx Ql (Nose) Test: Staphylococcus aureus/MRSA colonization, Culture Specimen Source: Nares/Axilla/Groin Specimen Type: Swab Specimen Date: 01/29/20241128 Result Date: 01/31/2024 0859 Result Status: Final result Abnormal: No Resulting Lab: [facility] [address] [place] [address] CULTURE No Staphylococcus aureus isolated Normal [facility] Comment on above: Performed By: #### 5 2969-3 #### JOLENE Cantu ([id number]) [facility] ([facility]) [address] [place] [address] ED Note-Physicianon 01-27-20 ED Note-Physician ED Note-Physician Basic Information Time Seen: Matthew MILES, Zhane Cantu. 01/25/2024 15:39 Chief Complaint chronic low back [...] for herniated disc by a neurosurgeon at [facility]. She notes over the past couple of [...] day(s), # 21 tab(s), Refills(s) 0, Pharmacy: [facility]/pharmacy #[id number], 160, cm, 01/25/24 15:37:00 EDT, Height/Length Dosing, 114.8, kg, 01/25/24 15... ketorolac, 30 mg = 1 mL, Injection, IntraMuscular, Once, Stop date 01/25/24 16:02:00 EDT, STAT, Start date 01/25/24 16:02:00 EDT, 01/25/24 16:02:00 EDT lidocaine topical, 1 patch(es), Topical, Daily, 7 patch(es), Refill(s) 0, apply 12 hours on and 12 hours off daily, [facility]/pharmacy #[id number], 160, cm, 01/25/24 15:37:00 EDT, Height/Length [...] days., # 18 tab(s), Refills(s) 0, Pharmacy: [facility]/pharmacy #[id number], 160, cm, 01/25/24 15:37:00 EDT, Height/Length [...] Follow-up With When Contact Information [facility]: [facility] [phone] In 3 days 01/28/2024 EST Additional Instructions: Call to schedule a follow-up appointment with your neurosurgeon and/or pain management for further management of care. Use (more content not included)... Normal [facility] Comment on above: Result Comment: Elec tronically Signed By: Zhane Castro PA-C\.br\Date and Time Signed: 01/25/24 17:27 EDT\.br\Electronically Co-Signed By: Jorge Mcintosh DO\.br\Date and Time Co-Signed: 01/27/24 09:14 EST CBC W Auto Differential pane l (Bld)on 01-26-2024 Basophils (Bld) [#/Vol] 0.01 10*3/uL [facility] Basophils/100 WBC (Bld) 0.1 % 0.0 - 2.0 % [facility] Eosinophils (Bld) [#/Vol] 0.14 10*3/uL [facility] Eosinophils/100 WBC (Bld) 1.3 % 0.0 - 6.0 % [facility] Erythrocyte distribution width (RBC) [Ratio] 13.4 % 11.5 - 14.5 % [facility] Hematocrit (Bld) [Volume fraction] 42.1 % 36.0 - 46.0 % [facility] Hemoglobin (Bld) [Mass/Vol] 13.6 g/dL 12.0 - 16.0 g/dL [facility] Immature granulocytes (Bld) [#/Vol] 0.03 10*3/uL [facility] Immature granulocytes/100 WBC (Bld) 0.3 % 0.0 - 0.9 % [facility] Comment on above: Immature Granulocyte Count (IG) includes promyelocytes, myelocytes and metamyelocytes but does not include bands. Percent differential counts (%) should be interpreted in the context of the absolute cell counts (cells/UL). Interpretation and review of laboratory results Abnormal [facility] Lymphocytes (Bld) [#/Vol] 1.25 10*3/uL [facility] Lymphocytes/100 WBC (Bld) 11.4 % 13.0 - 44.0 % [facility] MCH (RBC) [Entitic mass] 30 pg 26.0 - 34.0 pg [facility] MCHC (RBC) [Mass/Vol] 32.3 g/dL 32.0 - 36.0 g/dL [facility] MCV (RBC) [Entitic vol] 93 fL 80 - 100 fL [facility] Monocytes (Bld) [#/Vol] 0.5 10*3/uL [facility] Monocytes/100 WBC (Bld) 4.6 % 2.0 - 10.0 % [facility] Neutrophils (Bld) [#/Vol] 9.03 10*3/uL High [facility] Comment on above: Percent differential counts (%) should be interpreted in the context of the absolute cell counts (cells/uL). Neutrophils/100 WBC (Bld) 82.3 % 40.0 - 80.0 % [facility] Nucleated RBC/100 WBC (Bld) [Ratio] 0 % [facility] Platelets (Bld) [#/Vol] 430 10*3/uL [facility] RBC (Bld) [#/Vol] 4.53 10*6/uL [facility] WBC (Bld) [#/Vol] 11 10*3/uL [facility] Basophils (Bld) [#/Vol] 0.01 x10*3/uL Normal 0.00-0.10 [facility] Comment on above: Performed By: #### 3 4529-8 #### SANTOSH BAI ([id number]) [facility] ([facility]) [address] [place] [address] Basophils/100 WBC (Bld) 0.1 % Normal 0.0-2.0 [facility] Comment on above: Performed By: #### 3 4529-8 #### SANTOSH BAI ([id number]) [facility] ([facility]) [address] [place] [address] Eosinophils (Bld) [#/Vol] 0.14 x10*3/uL Normal 0.00-0.70 [facility] Comment on above: Performed By: #### 3 4529-8 #### SANTOSH BAI ([id number]) [facility] ([facility]) [address] [place] [address] Eosinophils/100 WBC (Bld) 1.3 % Normal 0.0-6.0 [facility] Comment on above: Performed By: #### 3 4529-8 #### SANTOSH BAI ([id number]) [facility] ([facility]) [address] [place] [address] Erythrocyte distribution width (RBC) [Ratio] 13.4 % Normal 11.5-14.5 [facility] Comment on above: Performed By: #### 3 4529-8 #### SANTOSH BAI ([id number]) [facility] ([facility]) [address] [place] [address] Hematocrit (Bld) [Volume fraction] 42.1 % Normal 36.0-46.0 [facility] Comment on above: Performed By: #### 3 4529-8 #### SANTOSH BAI ([id number]) [facility] ([facility]) [address] [place] [phone] Hemoglobin (Bld) [Mass/Vol] 13.6 g/dL Normal 12.0-16.0 [facility] Comment on above: Performed By: #### 3 4529-8 #### SANTOSH BAI ([id number]) [facility] ([facility]) [address] [place] [phone] Immature granulocytes (Bld) [#/Vol] 0.03 x10*3/uL Normal 0.00-0.70 [facility] Comment on above: Performed By: #### 3 4529-8 #### SANTOSH BAI ([id number]) [facility] ([facility]) [address] [place] [phone] Immature granulocytes/100 WBC (Bld) 0.3 % Normal 0.0-0.9 [facility] Comment on above: Result Comment: Aspen ture Granulocyte Count (IG) includes promyelocytes, myelocytes and metamyelocytes but does not include bands. Percent differential counts (%) should be interpreted in the context of the absolute cell counts (cells/UL). Performed By: #### 3 4529-8 #### SANTOSH BAI ([id number]) [facility] ([facility]) [address] [place] [address] Lymphocytes (Bld) [#/Vol] 1.25 x10*3/uL Normal 1.20-4.80 [facility] Comment on above: Performed By: #### 3 4529-8 #### SANTOSH BAI ([id number]) [facility] ([facility]) [address] [place] [phone] Lymphocytes/100 WBC (Bld) 11.4 % Normal 13.0-44.0 [facility] Comment on above: Performed By: #### 3 4529-8 #### SANTOSH BAI ([id number]) [facility] ([facility]) [address] [place] [address] MCH (RBC) [Entitic mass] 30.0 pg Normal 26.0-34.0 [facility] Comment on above: Performed By: #### 3 4529-8 #### SANTOSH BAI ([id number]) [facility] ([facility]) [address] [place] [address] MCHC (RBC) [Mass/Vol] 32.3 g/dL Normal 32.0-36.0 [facility] Comment on above: Performed By: #### 3 4529-8 #### SANTOSH BAI ([id number]) [facility] ([facility]) [address] [place] [address] MCV (RBC) [Entitic vol] 93 fL Normal 80-100 [facility] Comment on above: Performed By: #### 3 4529-8 #### SANTOSH BAI ([id number]) [facility] ([facility]) [address] [place] [address] Monocytes (Bld) [#/Vol] 0.50 x10*3/uL Normal 0.10-1.00 [facility] Comment on above: Performed By: #### 3 4529-8 #### SANTOSH BAI ([id number]) [facility] ([facility]) [address] [place] [address] Monocytes/100 WBC (Bld) 4.6 % Normal 2.0-10.0 [facility] Comment on above: Performed By: #### 3 4529-8 #### SANTOSH BAI ([id number]) [facility] ([facility]) [address] [place] [address] Neutrophils (Bld) [#/Vol] 9.03 x10*3/uL High 1.20-7.70 [facility] Comment on above: Result Comment: Perc ent differential counts (%) should be interpreted in the context of the absolute cell counts (cells/uL). Performed By: #### 3 4529-8 #### SANTOSH BAI ([id number]) [facility] ([facility]) [address] [place] [address] Neutrophils/100 WBC (Bld) 82.3 % Normal 40.0-80.0 [facility] Comment on above: Performed By: #### 3 4529-8 #### SANTOSH BAI ([id number]) [facility] ([facility]) [address] [place] [address] Nucleated RBC/100 WBC (Bld) [Ratio] 0.0 /100 WBCs Normal 0.0-0.0 [facility] Comment on above: Performed By: #### 3 4529-8 #### SANTOSH BAI ([id number]) [facility] ([facility]) [address] [place] [address] Platelets (Bld) [#/Vol] 430 x10*3/uL Normal 150-450 [facility] Comment on above: Performed By: #### 3 4529-8 #### SANTOSH BAI ([id number]) [facility] ([facility]) [address] [place] [address] RBC (Bld) [#/Vol] 4.53 x10*6/uL Normal 4.00-5.20 [facility] Comment on above: Performed By: #### 3 4529-8 #### SANTOSH BAI ([id number]) [facility] ([facility]) [address] [place] [address] WBC (Bld) [#/Vol] 11.0 x10*3/uL Normal 4.4-11.3 [facility] Comment on above: Performed By: #### 3 4529-8 #### SANTOSH BAI ([id number]) [facility] ([facility]) [address] [place] [address] Comprehensive metabolic 2000 panelon 01-26-2024 Albumin BCP dye [Mass/Vol] 4.3 g/dL 3.4 - 5.0 g/dL [facility] ALP [Catalytic activity/Vol] 93 U/L 33 - 110 U/L [facility] ALT With P-5'-P [Catalytic activity/Vol] 17 U/L 7 - 45 U/L [facility] Comment on above: Patients treated wit h Sulfasalazine may generate falsely decreased results for ALT. Anion gap [Moles/Vol] 13 mmol/L 10 - 2 0 mmol/L [facility] AST With P-5'-P [Catalytic activity/Vol] 20 U/L 9 - 39 U/L [facility] Comment on above: MILD HEMOLYSIS DETEC LISA. The result may be falsely elevated due to hemolysis or other interferents. Clinical correlation is recommended. Repeat testing may be considered. Bilirubin [Mass/Vol] 0.3 mg/dL 0.0 - 1 .2 mg/dL [facility] Calcium [Mass/Vol] 9 mg/dL 8.6 - 10. 3 mg/dL [facility] Chloride [Moles/Vol] 108 mmol/L High 98 - 10 7 mmol/L [facility] CO2 [Moles/Vol] 23 mmol/L 21 - 32 mmol/L [facility] Creatinine [Mass/Vol] 0.78 mg/dL 0.50 - 1.05 mg/dL [facility] eGFR - PINF [facility] Comment on above: Calculations of juan antonio mated GFR are performed using the 2020 CKD-EPI Study Refit equation without the race variable for the IDMS-Traceable creatinine methods. https://jasn.asnjournals.org/content//ASN.96544 38432 Glucose [Mass/Vol] 106 mg/dL High 74 - 99 mg/dL [facility] Interpretation and review of laboratory results Abnormal [facility] Potassium [Moles/Vol] 4.3 mmol/L 3.5 - 5.3 mmol/L [facility] Comment on above: MILD HEMOLYSIS DETEC LISA. The result may be falsely elevated due to hemolysis or other interferents. Clinical correlation is recommended. Repeat testing may be considered. Protein [Mass/Vol] 7.3 g/dL 6.4 - 8.2 g/dL [facility] Sodium [Moles/Vol] 140 mmol/L 136 - 145 mmol/L [facility] Urea nitrogen [Mass/Vol] 17 mg/dL 6 - 23 mg/dL [facility] Albumin BCP dye [Mass/Vol] 4.3 g/dL Normal 3.4-5.0 [facility] Comment on above: Performed By: #### 3 4529-8 #### SANTOSH BAI ([id number]) [facility] ([facility]) [address] [place] [address] ALP [Catalytic activity/Vol] 93 U/L Normal 33-110 [facility] Comment on above: Performed By: #### 3 4529-8 #### SANTOSH BAI ([id number]) [facility] ([facility]) [address] [place] [address] ALT With P-5'-P [Catalytic activity/Vol] 17 U/L Normal 7-45 [facility] Comment on above: Result Comment: Katia ents treated with Sulfasalazine may generate falsely decreased results for ALT. Performed By: #### 3 4529-8 #### SANTOSH BAI ([id number]) [facility] ([facility]) [address] [place] [address] Anion gap [Moles/Vol] 13 mmol/L Normal 10-20 [facility] Comment on above: Performed By: #### 3 4529-8 #### SANTOSH BAI ([id number]) [facility] ([facility]) [address] [place] [address] AST With P-5'-P [Catalytic activity/Vol] 20 U/L Normal 9-39 [facility] Comment on above: Result Comment: MILD HEMOLYSIS DETECTED. The result may be falsely elevated due to hemolysis or other interferents. Clinical correlation is recommended. Repeat testing may be considered. Performed By: #### 3 4529-8 #### SANTOSH BAI ([id number]) [facility] ([facility]) [address] [place] [address] Bilirubin [Mass/Vol] 0.3 mg/dL Normal 0.0-1.2 [facility] Comment on above: Performed By: #### 3 4529-8 #### SANTOSH BAI ([id number]) [facility] ([facility]) [address] [place] [address] Calcium [Mass/Vol] 9.0 mg/dL Normal 8.6-10.3 [facility] Comment on above: Performed By: #### 3 4529-8 #### SANTOSH BAI ([id number]) [facility] ([facility]) [address] [place] [address] Chloride [Moles/Vol] 108 mmol/L High 98-107 [facility] Comment on above: Performed By: #### 3 4529-8 #### SANTOSH BAI ([id number]) [facility] ([facility]) [address] [place] [address] CO2 [Moles/Vol] 23 mmol/L Normal 21-32 [facility] Comment on above: Performed By: #### 3 4529-8 #### SANTOSH BAI ([id number]) [facility] ([facility]) [address] [place] [address] Creatinine [Mass/Vol] 0.78 mg/dL Normal 0.50-1.05 [facility] Comment on above: Performed By: #### 3 4529-8 #### SANTOSH BAI ([id number]) [facility] ([facility]) [address] [place] [address] GFR/1.73 sq M.predicted MDRD (S/P/Bld) [Vol rate/Area] mL/min/{1.73_m2} Normal >60 [facility] Comment on above: Result Comment: Calc ulations of estimated GFR are performed using the 2020 CKD-EPI Study Refit equation without the race variable for the IDMS-Traceable creatinine methods. https://jasn.asnjournals.org/content/early//ASN.38833 52503 Performed By: #### 3 4529-8 #### SANTOSH BAI ([id number]) [facility] ([facility]) [address] [place] [address] Glucose [Mass/Vol] 106 mg/dL High 74-99 [facility] Comment on above: Performed By: #### 3 4529-8 #### SANTOSH BAI ([id number]) [facility] ([facility]) [address] [place] [address] Potassium [Moles/Vol] 4.3 mmol/L Normal 3.5-5.3 [facility] Comment on above: Result Comment: MILD HEMOLYSIS DETECTED. The result may be falsely elevated due to hemolysis or other interferents. Clinical correlation is recommended. Repeat testing may be considered. Performed By: #### 3 4529-8 #### SANTOSH BIA ([id number]) [facility] ([facility]) [address] [place] [address] Protein [Mass/Vol] 7.3 g/dL Normal 6.4-8.2 [facility] Comment on above: Performed By: #### 3 4529-8 #### SANTOSH BAI ([id number]) [facility] ([facility]) [address] [place] [address] Sodium [Moles/Vol] 140 mmol/L Normal 136-145 [facility] Comment on above: Performed By: #### 3 4529-8 #### SANTOSH BAI ([id number]) [facility] ([facility]) [address] [place] [address] Urea nitrogen [Mass/Vol] 17 mg/dL Normal 6-23 [facility] Comment on above: Performed By: #### 3 4529-8 #### SANTOSH LI ([id number]) [facility] CITY) [address] [place] [address] ED Clinical Summaryon 2023 ED Clinical Summary ED Clinical Summary [address] [address] ED Clinical Summary Person Information Name: JERAD TRACY [place] Age: 48 Years : 1975 Sex: Female Language: Citizen Of [place] PCP: Cheyanne Rincon Marital Status: Visit Id: [...] 01/25/2024 16:33:50 01/25/2024 16:33:50 01/25/2024 16:33:50 ADDRESS: [address] [place], [place] [address]Jazmine [facility] [id number] PHYS DOC NOTES: MEDICAL INFORMATION: Prescriptions Given: Medications to Continue Taking That Have Changed [facility]/pharmacy #[id number], [address] [place], [place] [id number], [phone] START: cyclobenzaprine (cyclobenzaprine 5 mg Tab) 1 [...] PATIENT EDUCATION INFORMATION: Instructions: Chronic Back Pain, Fhuu-mq-Hbuf Follow up: With: Address: When: Pain Clinic: [facility] [phone] In 3 days 01/28/2024 Comments: Call to schedule a follow-up appointment with your neurosurgeon and/or pain management for further management of care. Use the prednisone as prescribed. Use the Flexeril and lidocaine patches as needed for pain along with Tylenol and Motrin. Return to ED with any new or worsening symptoms. With: Address: When: Cheyanne Rosas [address] [place] [address] [place] [id number] [facility] (1) In 3 days DIAGNOSIS: Chronic bilateral low back pain with sciatica; Other chronic pain Normal [facility] ED Patient Summaryon 024 ED Patient Summary ED Patient Summary [address] [address] Patient Discharge Instructions Person Information Name: JERAD TRACY Age: 48 Years Arrival Date: 01/25/2024 15:22:45 Discharge Diagnosis: Chronic bilateral low back pain with sciatica; Other chronic pain Primary Care Physician: Cheyanne Rincon Provider Information Primary Provider: Jorge Mcintosh DO [employer] Director:Zhane Castro PA-C. The exam and treatment you received in the Emergency Department were for an urgent problem and are not intended as complete care. It is important that you follow up with a doctor, nurse practitioner, or physician???s dermatology physician assistant for ongoing care. If your symptoms [...] Instructions: With: Address: When: Pain Clinic: [facility] [phone] In 3 days 01/28/2024 Comments: Call to schedule a follow-up appointment with your neurosurgeon and/or pain management for further management of care. Use the prednisone as prescribed. Use the Flexeril and lidocaine patches as needed for pain along with Tylenol and Motrin. Return to ED with any new or worsening symptoms. With: Address: When: Cheyanne Rosas [address] [facility], [address], [address] [address] Business (1) In 3 days In the event that this physician does not participate in your insurance network, please consult with your insurance company to find a nearby participating provider. Patient Education Materials: Chronic Back Pain, Noap-ve-Igug A MESSAGE TO ALL PATIENTS REGARDING OPIOIDS PRESCRIPTION OPIOIDS: WHAT YOU NEED TO KNOW Prescription opioids can be used to help relieve vkypozao-dw-irtsvz pain and are often prescribed following a [...] friends, and (more content not included)... Normal [facility] Lower Extremity Venous Du plex Bilateralon 01-24-2024 [...] Gamboa MD Transcribed by: KIERRA Technologist: KRISTEL Ramirez [facility] BMPon 01-23-2024 Anion gap [Moles/Vol] 9 mmol/L Normal 6-16 [facility] Comment on above: Performed By: #### 2 [id number] #### [facility] [address] [place] [address] Calcium [Mass/Vol] 7.9 mg/dL Low 8.9-11.1 [facility] Comment on above: Performed By: #### 2 [id number] #### [facility] [address] [place] [address] Chloride [Moles/Vol] 107 mmol/L Normal 101-111 [facility] Comment on above: Performed By: #### 2 [id number] #### [facility] [address] [place] [address] CO2 [Moles/Vol] 29 mmol/L Normal 21-31 [facility] Comment on above: Performed By: #### 2 [id number] #### [facility] [address] [place] [address] Creatinine [Mass/Vol] 0.8 mg/dL Normal 0.5-1.3 [facility] Comment on above: Performed By: #### 2 [id number] #### [facility] [address] [place] [address] Glucose [Mass/Vol] 118 mg/dL Normal 55-199 [facility] Comment on above: Performed By: #### 2 [id number] #### [facility] [address] [place] [address] Potassium [Moles/Vol] 3.7 mmol/L Normal 3.5-5.3 [facility] Comment on above: Performed By: #### 2 [id number] #### [facility] [address] [place] [address] Sodium [Moles/Vol] 141 mmol/L Normal 135-145 [facility] Comment on above: Performed By: #### 2 160802 #### [facility] [address] [place] [address] Urea nitrogen [Mass/Vol] 12 mg/dL Normal 5-21 [facility] Comment on above: Performed By: #### 2 [id number] #### [facility] [address] [place] [address] Urea nitrogen/Creatinine [Mass ratio] 15 No Units Normal 10-20 [facility] Comment on above: Performed By: #### 2 [id number] #### [facility] [address] [place] [address] BNPon 01-23-2024 Int Ctr BNP Pass Normal [facility] Comment on above: Performed By: #### 1 [id number] #### [facility] [address] [place] [address] Natriuretic peptide B (Bld) [Mass/Vol] 85 pg/mL High 5-80 [facility] Comment on above: Performed By: #### 1 [id number] #### [facility] [address] [place] [address] CBC w/ Auto Diffon 4 Basophils/100 WBC (Bld) 0.6 % Normal 0.0-2.0 [facility] Comment on above: Performed By: #### 2 650489 #### [facility] [address] [place] [address] Basophils/Leukocytes Auto (Bld) [Pure # fraction] 0.0 E9/L Normal 0.0-0.2 [facility] Comment on above: Performed By: #### 2 [id number] #### [facility] [address] [place] [address] Eosinophils (Bld) [#/Vol] 0.4 E9/L Normal 0.0-0.5 [facility] Comment on above: Performed By: #### 2 951374 #### [facility] [address] [place] [address] Eosinophils/100 WBC (Bld) 6.4 % Normal 0.0-8.0 [facility] Comment on above: Performed By: #### 2 668812 #### [facility] [address] [place] [address] Erythrocyte distribution width (RBC) [Ratio] 14.0 % Normal 10.9-14.2 [facility] Comment on above: Performed By: #### 2 918417 #### [facility] [address] [place] [address] Hematocrit (Bld) [Volume fraction] 35.4 % Normal 34.0-46.0 [facility] Comment on above: Performed By: #### 2 171320 #### [facility] [address] [place] [address] Hemoglobin (Bld) [Mass/Vol] 12.2 g/dL Normal 12.0-16.0 [facility] Comment on above: Performed By: #### 2 485304 #### [facility] [address] [place] [address] Lymphocytes (Bld) [#/Vol] 2.1 E9/L Normal 1.0-4.0 [facility] Comment on above: Performed By: #### 2 841545 #### [facility] [address] [place] [address] Lymphocytes/100 WBC (Bld) 33.8 % Normal 14.0-50.0 [facility] Comment on above: Performed By: #### 2 589435 #### [facility] [address] [place] [address] MCH (RBC) [Entitic mass] 31.2 pg Normal 27.0-34.0 [facility] Comment on above: Performed By: #### 2 715810 #### [facility] [address] [place] [address] MCHC (RBC) [Mass/Vol] 34.3 g/dL Normal 31.4-36.0 [facility] Comment on above: Performed By: #### 2 336684 #### [facility] [address] [place] [address] MCV (RBC) [Entitic vol] 90.9 fL Normal 80.0-100.0 [facility] Comment on above: Performed By: #### 2 584430 #### [facility] [address] [place] [address] Monocytes (Bld) [#/Vol] 0.5 E9/L Normal 0.2-1.0 [facility] Comment on above: Performed By: #### 2 694772 #### [facility] [address] [place] [address] Neutrophils (Bld) [#/Vol] 3.1 E9/L Normal 2.0-7.5 [facility] Comment on above: Performed By: #### 2 356697 #### [facility] [address] [place] [address] Neutrophils/100 WBC (Bld) 50.6 % Normal 36.0-75.0 [facility] Comment on above: Performed By: #### 2 475560 #### [facility] [address] [place] [address] Platelet 329.0 E9/L Normal 150.0-500.0 [facility] Comment on above: Performed By: #### 2 309321 #### [facility] [address] [place] [address] Platelet mean volume (Bld) [Entitic vol] 7.9 fL Normal 6.4-10.8 [facility] Comment on above: Performed By: #### 2 050835 #### [facility] [address] [place] [address] RBC (Bld) [#/Vol] 3.9 E12/L Low 4.3-5.9 [facility] Comment on above: Performed By: #### 2 022117 #### [facility] [address] [place] [address] WBC corrected for nucl RBC Auto (Bld) [#/Vol] 6.2 E9/L Normal 4.0-11.0 [facility] Comment on above: Performed By: #### 2 931897 #### [facility] [address] [place] [address] CHEMISTRYOrdered By: SYSTEM SYSTEM on 01-23-2024 Albumin [...] Katlyn Edson, October 2017) Urea nitrogen [Mass/Vol] 12 mg/dL Normal 5 - 21 mg/dL [facility] Urea nitrogen/Creatinine [Mass ratio] 15 mg/mg Normal 10 - 20 [facility] CHEMISTRYOrdered By: Jerad Meraz on 01-23-2024 Natriuretic peptide B (Bld) [Mass/Vol] 85 pg/mL High 5 - 80 pg/mL [facility] ED Clinical Summaryon 2023 ED Clinical Summary ED Clinical Summary [place] [address] ED Clinical Summary Person Information Name: JERAD TRACY [place] Age[facility] 48 Years : 1975 Sex: Female Language: Citizen Of [place] PCP: Cheyanne Rincon Marital Status: Visit Id: [...] 01/23/2024 18:45:44 01/23/2024 18:45:44 01/23/2024 18:45:44 ADDRESS: [address] [place] [address] SEJAL [facility] [phone] PHYS DOC NOTES: MEDICAL INFORMATION: Prescriptions Given: New Medications [id number], [address] [place] [id number], [phone] azithromycin (azithromycin 250 mg Tab 5-day Dose [...] PATIENT EDUCATION INFORMATION: Instructions: Abdominal Pain, Adult, Uvel-nj-Obun Follow up: With: Address: When: Cheyanne Rosas [address], [address], [employer] [address] [place], [place] [id number] [employer] (1Induction Manager In 3 days 01/26/2024 Comments: Call to schedule a follow-up appoint with your family physician in the next 2 to 3 days. Continue to elevate your feet and wear compression stockings. Return to ED with any new or worsening symptoms. DIAGNOSIS: Abdominal pain, RUQ; Bilateral leg edema; COPD exacerbation Normal [facility] ED Note-Physicianon 01-23-20 ED Note-Physician ED Note-Physician Basic Information Time Seen: Matthew MILES, Zhane Enriquez 01/23/2024 15:04 Chief Complaint Pt presents to ED with complaints of RUQ pain and fluid retention. Hx of liver fibrosis. History of Present Illness Patient is a 34-ario-zlf-year-old family with a history of bipolar disorder, [...] appropriate Medical Decision Making Patient is a 62-qryc-lbz-year-old family with a history of bipolar disorder, [...] day(s), # 6 tab(s), Refills(s) 0, [id number], 160, cm, 01/23/24 14:03:00 EDT, Height/Length [...] day(s), # 5 tab(s), Refills(s) 0, [id number], 160, cm, 01/23/24 14:03:00 EDT, Height/Length [...] 3 da (more content not included)... Normal [facility] Comment on above: Result Comment: Elec tronically Signed By: Matthew MILES, Zhane Enriquez\.br\Date and Time Signed: 01/23/24 18:37 EDT\.br\Electronically Co-Signed By: Annette Watkins, Balbina Sparks\.rufino\Date and Time Co-Signed: 01/23/24 19:50 EDT ED [...] Patient seen and evaluated by the physician dermatology physician assistant. Attending physician was present in the emergency department and supervised care. This visit was performed by both the physician and an APC. I performed all aspects of the MDM as documented. This report was transcribed using voice recognition software. Every effort was made to ensure accuracy, however, inadvertently computerized tissue inserter mistakes may be present. Appropriate healthcare PPE [...] E9/L (01/23/24 14:26:00) RBC: 3.9 E12/L Low (01/23/24::) HGB: 12.2 gm/dL (01/23/24::) Hct: 35.4 % (01/23/24::) MCV: 90.9 fL (01/23/24::) MCH: 31.2 pg (01/23/24::) MCHC: 34.3 gm/dL (01/23/24::) RDW: 14 % (01/23/24::) Platelet: 329 E9/L (01/23/24::) MPV: 7.9 fL (01/23/24::) Neutro Auto: 50.6 % (01/23/24::) Lymph Auto: 33.8 % (01/23/24::) [place] Auto: 8.6 % (01/23/24::) Eos Auto: 6.4 % (01/23/24:) Basophil Auto: 0.6 % (more content not included)... Normal [facility] Comment on above: Other Comment: Accid ental duplicate ED Patient Summaryon 024 ED Patient Summary ED Patient Summary [place] [address] Patient Discharge Instructions Person Information Name: JERAD TRACY Age: 48 Years Arrival Date: 01/23/2024 13:53:24 Discharge Diagnosis: Abdominal pain, RUQ; Bilateral leg edema; COPD exacerbation Primary Care Physician: Cheyanne Rincon Provider Information Primary Provider: Balbina Bryant M.D. [employer] Director:Zhane Castro PA-C. The exam and treatment you received in the Emergency Department were for an urgent problem and are not intended as complete care. It is important that you follow up with a doctor, nurse practitioner, or physician???s dermatology physician assistant for ongoing care. If your symptoms [...] Cheyanne Rosas [address], [address], [address] [address] Business (1) In 3 days 01/26/2024 Comments: [...] provider. Patient Education Materials: Abdominal Pain, Adult, Ngop-lv-Sktp A MESSAGE TO ALL PATIENTS REGARDING OPIOIDS PRESCRIPTION OPIOIDS: WHAT YOU NEED TO KNOW Prescription opioids can be used to help relieve uuckoyne-if-nsjbjj pain and are often prescribed following a [...] them down (more content not included)... Normal [facility] Extra Blueon 01-23-2024 Tube Collected Plasma Yes Invalid Interpretation Code [facility] Comment on above: Performed By: #### 1 [id number] #### [facility] [address] [place] [address] HEMATOLOGYOrdered By: SYSTEM SYSTEM on 01-23-2024 Basophils/100 [...] 01-23-2024 Albumin [Mass/Vol] 3.8 g/dL Normal 3.3-5.0 [facility] Comment on above: Performed By: #### 2 [id number] #### [facility] [address] [place] [address] Albumin/Globulin (S) [Mass conc ratio] 1.4 Normal 1.1-2.2 [facility] Comment on above: Performed By: #### 2 538348 #### [facility] [address] [place] [address] ALP [Catalytic activity/Vol] 87 Int._Unit/L Normal 21-98 [facility] Comment on above: Performed By: #### 2 [id number] #### [facility] [address] [place] [address] ALT No additional P-5'-P [Catalytic activity/Vol] 25 Int._Unit/L Normal 6-46 [facility] Comment on above: Performed By: #### 2 [id number] #### [facility] [address] [place] [address] AST [Catalytic activity/Vol] 28 Int._Unit/L Normal 5-43 [facility] Comment on above: Performed By: #### 2 [id number] #### [facility] [address] [place] [address] Bilirubin [Mass/Vol] 0.3 mg/dL Normal 0.0-1.1 [facility] Comment on above: Performed By: #### 2 958375 #### [facility] [address] [place] [address] Bilirubin.direct [Mass/Vol] 0.0 mg/dL Normal 0.0-0.4 [facility] Comment on above: Performed By: #### 2 [id number] #### [facility] [address] [place] [address] Bilirubin.indirect [Mass or moles/Vol] 0.3 mg/dL Normal 0.1-0.9 [facility] Comment on above: Performed By: #### 2 442599 #### [facility] [address] [place] [address] Globulin (S) [Mass/Vol] 2.7 g/dL Normal 1.4-4.0 [facility] Comment on above: Performed By: #### 2 554400 #### [facility] [address] [place] [address] Protein [Mass/Vol] 6.5 g/dL Normal 6.0-7.8 [facility] Comment on above: Performed By: #### 2 [id number] #### [facility] [address] [place] [address] Lipase Levelon 01-23-2024 Lipase [Catalytic activity/Vol] 12 U/L Low 13-58 [facility] Comment on above: Performed By: #### 2 [id number] #### [facility] [address] [place] [address] Troponinon 01-23-2024 Troponin HS 3.40 pg/mL Low 10.10-27.10 [facility] Comment on above: Result Comment: The 95% CI (Confidence Interval) PPV (Positive Predictive Value) for myocardial infarction in females is 38 pg/mL, in males 51 pg/mL. The results should be used in conjunction with clinical conditions of myocardial infarction. (Access High Sensitivity Troponin I Instructions For Use, Katlyn Edson, October 2017) Performed By: #### 2 [id number] #### [facility] [address] [place] [address] UA with Cult Rflxon 01-23-20 Bilirubin Ql (U) 1+ mg/dL Abnormal Negative [facility] Comment on above: Performed By: #### 4 [id number] #### [facility] [address] [place] [address] Clarity (U) Clear Normal Clear [facility] Comment on above: Performed By: #### 4 [id number] #### [facility] [address] [place] [address] Color (U) Yellow Normal Yellow [facility] Comment on above: Result Comment: Micr oscopic readings are only performed on those samples that meet specific criteria set forth by [facility]. Performed By: #### 4 [id number] #### [facility] [address] [place] [address] Epithelial cells.squamous Auto (Urine sed) [#/Area] 5-8 Invalid Interpretation Code [facility] Comment on above: Performed By: #### 4 [id number] #### [facility] [address] [place] [address] Glucose Ql (U) Negative Normal Negative [facility] Comment on above: Performed By: #### 4 [id number] #### [facility] [address] [place] [address] Hemoglobin Auto test strip (U) [Mass/Vol] Negative Normal Negative [facility] Comment on above: Performed By: #### 4 [id number] #### [facility] [address] [place] [address] Ketones Auto test strip Ql (U) 1+ mg/dL Abnormal Negative [facility] Comment on above: Performed By: #### 4 [id number] #### [facility] [address] [place] [address] Leukocyte esterase Auto test strip Ql (U) Negative Normal Negative [facility] Comment on above: Performed By: #### 4 [id number] #### [facility] [address] [place] [address] Mucus Auto Ql (U) 3+ [id number] Abnormal Negative [facility] Comment on above: Performed By: #### 4 [id number] #### [facility] [address] [place] [address] Nitrite Auto test strip Ql (U) Negative Normal Negative [facility] Comment on above: Performed By: #### 4 [id number] #### [facility] [address] [place] [address] pH (U) 6.0 [pH] Invalid Interpretation Code 5.0-9.0 [facility] Comment on above: Performed By: #### 4 [id number] #### [facility] [address] [place] [address] Protein Ql (U) 1+ mg/dL Abnormal Negative [facility] Comment on above: Performed By: #### 4 [id number] #### [facility] [address] [place] [address] RBC Ql (U) 0-3 Normal 0-3 [facility] Comment on above: Performed By: #### 4 [id number] #### [facility] [address] [place] [address] Specific gravity (U) [Rel density] 1.049 Invalid Interpretation Code 1.005-1.030 [facility] Comment on above: Performed By: #### 4 [id number] #### [facility] [address] [place] [address] Urobilinogen (U) [Mass/Vol] 4 mg/dL Abnormal Negative [facility] Comment on above: Performed By: #### 4 [id number] #### [facility] [address] [place] [address] WBC Auto (Urine sed) [#/Area] 0-5 Normal 0-5 [facility] Comment on above: Performed By: #### 4 [id number] #### [facility] [address] [place] [address] Type of Urine collection method Clean Catch Normal [facility] Comment on above: Performed By: #### 4 [id number] #### [facility] [address] [place] [address] URINALYSISOrdered By: SYSTEM SYSTEM on 01-23-2024 Bilirubin Ql (U) 1+ mg/dL Invalid Interpretation Code Negativemg/d L [facility] UA Auto SS Clarity (U) Clear (01/23/24 3:45 PM) Normal Clear [facility] UA Auto SS Color (U) Yellow 1 (01/23/24 3:45 PM) Normal Yellow [facility] UA Auto SS Comment on above: Interpretive Data: M icroscopic readings are only performed on those samples that meet specific criteria set forth by [facility]. Epithelial cells.squamous Auto (Urine sed) [#/Area] 5-8 graded/HPF Invalid Interpretation Code [facility] Auto SS Glucose Ql (U) Negative [...] 3+ graded/LPF Invalid Interpretation Code Negativegrad ed/LPF [facility] UA Auto SS Nitrite Auto test strip Ql (U) Negative Normal Negativemg/d L [facility] UA Auto SS pH (U) 6.0 *NA* (01/23/24 3:45 PM) Invalid Interpretation Code 5.0 - 9.0 [facility] Auto SS Protein Ql (U) 1+ mg/dL Invalid Interpretation Code Negativemg/d L [facility] UA Auto SS RBC Ql (U) 0-3 graded/HPF Normal 0-3graded/HP F [facility] UA Auto SS Specific gravity (U) [Rel density] 1.049 *NA* (01/23/24 3:45 PM) Invalid Interpretation Code 1.005 - 1.030 [facility] UA Auto SS Urobilinogen (U) [Mass/Vol] 4 mg/dL Invalid Interpretation Code Negativemg/d L [facility] UA Auto SS WBC Auto (Urine sed) [#/Area] 0-5 graded/HPF Normal 0-5graded/HP F [facility] UA Auto SS URINALYSISOrdered By: Laurita Salazar on 01-23-2024 UA Spec Desc Clean Catch (01/23/24 3:45 PM) Normal [facility] [place] UA Auto SS XR Chest Single Viewon [...] mGy = na DAP = na Normal [facility] eGFRon 01-23-2024 eGFR 91 mL/min/1.73 m2 Normal >=59 [facility] Comment on above: Performed By: #### 1 [id number] #### [facility] [address] [place] [address] ED Clinical Summaryon 2023 ED Clinical Summary ED Clinical Summary [address] [address] ED Clinical Summary Person Information Name: JERAD TRACY [place] Age: 48 Years : 1975 Sex: Female Language: Citizen Of [place] PCP: Cheyanne Rincon Marital Status: Visit Id: [...] 01/14/2024 21:20:44 01/14/2024 21:20:44 01/14/2024 21:20:44 ADDRESS: [address] [place] [id number] [facility] DOC NOTES: MEDICAL INFORMATION: Prescriptions Given: [...] Follow up: With: Address: When: Cheyanne Rosas [address], [address], [place] [id number] Business (1Induction Manager In 3 days 01/17/2024 Comments: Call the [...] Chronic back pain; Other chronic pain Normal [facility] ED Note-Physicianon 01-14-20 ED Note-Physician ED Note-Physician [...] Rosas In 3 days 01/17/2024 EDT [address] [facility] [place] [id number] [facility] (1) Additional Instructions: Call the office of [...] Closed fr (more content not included)... Normal [facility] Comment on above: Result Comment: Elec tronically Signed By: Arley DO, Nikhil M.\.br\Date and Time Signed: 01/14/24 21:33 EDT ED Patient Summaryon 024 ED Patient Summary ED Patient Summary [address] [id number] Patient Discharge Instructions Person Information Name: JERAD TRACY Age: 48 Years Arrival Date: 01/14/2024 19:13:43 Discharge Diagnosis: Chronic back pain; Other chronic pain Primary Care Physician: Cheyanne Rincon Provider Information Primary Provider: Nikhil Tubbs DO [employer] Director:None The exam and treatment you received in the Emergency Department were for an urgent problem and are not intended as complete care. It is important that you follow up with a doctor, nurse practitioner, or physician???s dermatology physician assistant for ongoing care. If your symptoms [...] Follow-up Instructions: With: Address: When: Cheyanne Rosas [address] [place] [address] [address] Business (1) In 3 days 01/17/2024 Comments: [...] opioids can be used to help relieve sgbmhkph-kr-hpoaje pain and are often prescribed following a [...] plan on (more content not included)... Normal [facility] MR LUMBAR SPINE WO IV CONTRA STon 01-10-2024 MR LUMBAR SPINE WO IV CONTRAST Interpreted By: Bernadette Tapia, STUDY: MR LUMBAR SPINE WO IV CONTRAST; 01/10/2024 8:51 pm INDICATION: Signs/Symptoms:left leg numbness, lower extremity weakness. COMPARISON: MRI of the lumbar spine dated 01/01/2024; 12/18/2023; 10/31/2023;. ACCESSION NUMBER(S): [id number] ORDERING CLINICIAN: GERMAINE BLAIR TECHNIQUE: Sagittal T1, [...] STIR hyperintense edema. There is redemonstration of zkky-qg-enzxevfm disc height loss at the level of L4-L5, with intervertebral disc space is preserved at other levels. Lower thoracic spinal cord unremarkable in appearance. Conus medullaris terminates at the level of L1-L2. There is redemonstration of circumferential disc bulge with superimposed left subarticular disc protrusion at the level of L4-L5 which contributes to hqum-zj-nsgjiwds spinal canal and mild left-sided neural foraminal [...] at the level of L4-L5, contributing to ioau-jz-uyeyplmy spinal canal and mild left-sided neural foraminal narrowing and likely abutment/effacement of the traversing left L5 nerve. 2. No new abnormality is identified in the lumbar spine in the interim to recent MRI on 01/01/2024. No new posterior disc contour abnormality or spinal canal stenosis is present. MACRO: None Signed by: Bernadette Tapia 01/10/2024 9:34 PM Dictation workstation: [id number] [facility] MR Lumbar spine WO contrasto n 01-10-2024 1. Unchanged circumferential disc bulge with superimposed left subarticular disc herniation at the level of L4-L5, contributing to muuv-lt-gflnjonr spinal canal and mild left-sided neural foraminal narrowing and likely abutment/effacement of the traversing left L5 nerve. 2. No new abnormality is identified in the lumbar spine in the interim to recent MRI on 01/01/2024. No new posterior disc contour abnormality or spinal canal stenosis is present. MACRO: None Signed by: Bernadette Tapia 01/10/2024 9:34 PM Dictation workstation: [id number] MMODAL Interpreted By: Bernadette Tapia, STUDY: MR LUMBAR SPINE WO IV CONTRAST; 01/10/2024 8:51 pm INDICATION: Signs/Symptoms:left leg numbness, lower extremity weakness. COMPARISON: MRI of the lumbar spine dated 01/01/2024; 12/18/2023; 10/31/2023;. ACCESSION NUMBER(S): [id number] ORDERING CLINICIAN: GERMAINE BLAIR TECHNIQUE: Sagittal T1, [...] STIR hyperintense edema. There is redemonstration of lctl-ln-olplvjug disc height loss at the level of L4-L5, with intervertebral disc space is preserved at other levels. Lower thoracic spinal cord unremarkable in appearance. Conus medullaris terminates at the level of L1-L2. There is redemonstration of circumferential disc bulge with superimposed left subarticular disc protrusion at the level of L4-L5 which contributes to fxje-ul-bukwpdoj spinal canal and mild left-sided neural foraminal [...] spine dated 01/01/2024; 12/18/2023; 10/31/2023;. ACCESSION NUMBER(S): [id number] ORDERING CLINICIAN: GERMAINE BLAIR TECHNIQUE: Sagittal T1, [...] STIR hyperintense edema. There is redemonstration of flgz-bn-obebbdmx disc height loss at the level of L4-L5, with intervertebral disc space is preserved at other levels. Lower thoracic spinal cord unremarkable in appearance. Conus medullaris terminates at the level of L1-L2. There is redemonstration of circumferential disc bulge with superimposed left subarticular disc protrusion at the level of L4-L5 which contributes to zmvq-za-jaqlxbzc spinal canal and mild left-sided neural foraminal [...] at the level of L4-L5, contributing to djos-pi-yjkezsqd spinal canal and mild left-sided neural foraminal narrowing and likely abutment/effacement of the traversing left L5 nerve. 2. No new abnormality is identified in the lumbar spine in the interim to recent MRI on 01/01/2024. No new posterior disc contour abnormality or spinal canal stenosis is present. MACRO: None Signed by: Bernadette Tapia 01/10/2024 9:34 PM Dictation workstation: [id number] [facility] Work Phone: Radiology Study observation (narrative) [facility] Work Phone: MR Lumbar spine WO contrastO rdered By: Bernadette Tapia on 01-10-2024 [facility] Work Phone: Basic metabolic 2000 panelon 01-08-2024 Anion gap [Moles/Vol] 11 mmol/L 10 - 2 0 mmol/L [facility] Calcium [Mass/Vol] 8 mg/dL Low 8.6 - 10. 3 mg/dL [facility] Chloride [Moles/Vol] 98 mmol/L 98 - 10 7 mmol/L [facility] CO2 [Moles/Vol] 29 mmol/L 21 - 32 mmol/L [facility] Creatinine [Mass/Vol] 0.65 mg/dL 0.50 - 1.05 mg/dL [facility] eGFR - PINF [facility] Comment on above: Calculations of juan antonio mated GFR are performed using the 2020 CKD-EPI Study Refit equation without the race variable for the IDMS-Traceable creatinine methods. https://jasn.asnjournals.org/content//ASN.20502 31959 Glucose [Mass/Vol] 108 mg/dL High 74 - 99 mg/dL [facility] Interpretation and review of laboratory results Abnormal [facility] Potassium [Moles/Vol] 4.1 mmol/L 3.5 - 5.3 mmol/L [facility] Sodium [Moles/Vol] 134 mmol/L Low 136 - 145 mmol/L [facility] Urea nitrogen [Mass/Vol] 17 mg/dL 6 - 23 mg/dL [facility] Anion gap [Moles/Vol] 11 mmol/L Normal 10-20 [facility] Comment on above: Performed By: #### 3 4529-8 #### SANTOSH BAI ([id number]) [facility] ([facility]) [address] [place] [address] Calcium [Mass/Vol] 8.0 mg/dL Low 8.6-10.3 [facility] Comment on above: Performed By: #### 3 4529-8 #### SANTOSH BAI ([id number]) [facility] ([facility]) [address] [place] [address] Chloride [Moles/Vol] 98 mmol/L Normal 98-107 [facility] Comment on above: Performed By: #### 3 4529-8 #### SANTOSH BAI ([id number]) [facility] ([facility]) [address] [place] [address] CO2 [Moles/Vol] 29 mmol/L Normal 21-32 [facility] Comment on above: Performed By: #### 3 4529-8 #### SANTOSH BAI ([id number]) [facility] ([facility]) [address] [place] [address] Creatinine [Mass/Vol] 0.65 mg/dL Normal 0.50-1.05 [facility] Comment on above: Performed By: #### 3 4529-8 #### SANTOSH BAI ([id number]) [facility] ([facility]) [address] [place] [address] GFR/1.73 sq M.predicted MDRD (S/P/Bld) [Vol rate/Area] mL/min/{1.73_m2} Normal >60 [facility] Comment on above: Result Comment: Calc ulations of estimated GFR are performed using the 2020 CKD-EPI Study Refit equation without the race variable for the IDMS-Traceable creatinine methods. https://jasn.asnjournals.org/content/early/ASN.95319 31824 Performed By: #### 3 4529-8 #### SANTOSH BAI ([id number]) [facility] ([facility]) [address] [place] [address] Glucose [Mass/Vol] 108 mg/dL High 74-99 [facility] Comment on above: Performed By: #### 3 4529-8 #### SANTOSH BAI ([id number]) [facility] ([facility]) [address] [place] [address] Potassium [Moles/Vol] 4.1 mmol/L Normal 3.5-5.3 [facility] Comment on above: Performed By: #### 3 4529-8 #### SANTOSH BAI ([id number]) [facility] ([facility]) [address] [place] [address] Sodium [Moles/Vol] 134 mmol/L Low 136-145 [facility] Comment on above: Performed By: #### 3 4529-8 #### SANTOSH BAI ([id number]) [facility] ([facility]) [address] [place] [address] Urea nitrogen [Mass/Vol] 17 mg/dL Normal 6-23 [facility] Comment on above: Performed By: #### 3 4529-8 #### SANTOSH BAI ([id number]) [facility] ([facility]) [address] [place] [address] Lavender Topon 01-08-2024 Extra Tube Hold for add-ons. [facility] Comment on above: Auto resulted. [facility] Basic metabolic 2000 panelon 01-07-2024 Anion gap [Moles/Vol] 10 mmol/L 10 - 2 0 mmol/L [facility] Calcium [Mass/Vol] 8.4 mg/dL Low 8.6 - 10. 3 mg/dL [facility] Chloride [Moles/Vol] 98 mmol/L 98 - 10 7 mmol/L [facility] CO2 [Moles/Vol] 31 mmol/L 21 - 32 mmol/L [facility] Creatinine [Mass/Vol] 0.78 mg/dL 0.50 - 1.05 mg/dL [facility] eGFR - PINF [facility] Comment on above: Calculations of juan antonio mated GFR are performed using the 2020 CKD-EPI Study Refit equation without the race variable for the IDMS-Traceable creatinine methods. https://jasn.asnjournals.org/content//ASN.76399 82347 Glucose [Mass/Vol] 116 mg/dL High 74 - 99 mg/dL [facility] Interpretation and review of laboratory results Abnormal [facility] Potassium [Moles/Vol] 4.2 mmol/L 3.5 - 5.3 mmol/L [facility] Sodium [Moles/Vol] 135 mmol/L Low 136 - 145 mmol/L [facility] Urea nitrogen [Mass/Vol] 15 mg/dL 6 - 23 mg/dL [facility] Anion gap [Moles/Vol] 10 mmol/L Normal 10-20 [facility] Comment on above: Performed By: #### 3 4529-8 #### SANTOSH BAI ([id number]) [facility] ([facility]) [address] [place] [address] Calcium [Mass/Vol] 8.4 mg/dL Low 8.6-10.3 [facility] Comment on above: Performed By: #### 3 4529-8 #### SANTOSH BAI ([id number]) [facility] ([facility]) [address] [place] [id number] Chloride [Moles/Vol] 98 mmol/L Normal 98-107 [facility] Comment on above: Performed By: #### 3 4529-8 #### SANTOSH BAI ([id number]) [facility] ([facility]) [address] [place] [address] CO2 [Moles/Vol] 31 mmol/L Normal 21-32 [facility] Comment on above: Performed By: #### 3 4529-8 #### SANTOSH BAI ([id number]) [facility] ([facility]) [address] [place] [address] Creatinine [Mass/Vol] 0.78 mg/dL Normal 0.50-1.05 [facility] Comment on above: Performed By: #### 3 4529-8 #### SANTOSH BAI ([id number]) [facility] ([facility]) [address] [place] [address] GFR/1.73 sq M.predicted MDRD (S/P/Bld) [Vol rate/Area] mL/min/{1.73_m2} Normal >60 [facility] Comment on above: Result Comment: Calc ulations of estimated GFR are performed using the 2020 CKD-EPI Study Refit equation without the race variable for the IDMS-Traceable creatinine methods. https://jasn.asnjournals.org/content/early//ASN.60757 54023 Performed By: #### 3 4529-8 #### SANTOSH BAI ([id number]) [facility] ([facility]) [address] [place] [address] Glucose [Mass/Vol] 116 mg/dL High 74-99 [facility] Comment on above: Performed By: #### 3 4529-8 #### SANTOSH BAI ([id number]) [facility] ([facility]) [address] [place] [address] Potassium [Moles/Vol] 4.2 mmol/L Normal 3.5-5.3 [facility] Comment on above: Performed By: #### 3 4529-8 #### SANTOSH BAI ([id number]) [facility] ([facility]) [address] [place] [address] Sodium [Moles/Vol] 135 mmol/L Low 136-145 [facility] Comment on above: Performed By: #### 3 4529-8 #### SANTOSH BAI ([id number]) [facility] ([facility]) [address] [place] [address] Urea nitrogen [Mass/Vol] 15 mg/dL Normal - [facility] Comment on above: Performed By: #### 3 4529-8 #### SANTOSH BAI ([id number]) [facility] ([facility]) [address] [place] [id number] CBC W Auto Differential pane l (Bld)on 01-07-2024 Basophils (Bld) [#/Vol] 0.01 10*3/uL [facility] Basophils/100 WBC (Bld) 0.1 % 0.0 - 2.0 % [facility] Eosinophils (Bld) [#/Vol] 0.32 10*3/uL [facility] Eosinophils/100 WBC (Bld) 2.9 % 0.0 - 6.0 % [facility] Erythrocyte distribution width (RBC) [Ratio] 13.2 % 11.5 - 14.5 % [facility] Hematocrit (Bld) [Volume fraction] 39.6 % 36.0 - 46.0 % [facility] Hemoglobin (Bld) [Mass/Vol] 13 g/dL 12.0 - 16.0 g/dL [facility] Immature granulocytes (Bld) [#/Vol] 0.07 10*3/uL [facility] Immature granulocytes/100 WBC (Bld) 0.6 % 0.0 - 0.9 % [facility] Comment on above: Immature Granulocyte Count (IG) includes promyelocytes, myelocytes and metamyelocytes but does not include bands. Percent differential counts (%) should be interpreted in the context of the absolute cell counts (cells/UL). Lymphocytes (Bld) [#/Vol] 2.86 10*3/uL [facility] Lymphocytes/100 WBC (Bld) 25.8 % 13.0 - 44.0 % [facility] MCH (RBC) [Entitic mass] 30.8 pg 26.0 - 34.0 pg [facility] MCHC (RBC) [Mass/Vol] 32.8 g/dL 32.0 - 36.0 g/dL [facility] MCV (RBC) [Entitic vol] 94 fL 80 - 100 fL [facility] Monocytes (Bld) [#/Vol] 0.79 10*3/uL [facility] Monocytes/100 WBC (Bld) 7.1 % 2.0 - 10.0 % [facility] Neutrophils (Bld) [#/Vol] 7.02 10*3/uL [facility] Comment on above: Percent differential counts (%) should be interpreted in the context of the absolute cell counts (cells/uL). Neutrophils/100 WBC (Bld) 63.5 % 40.0 - 80.0 % [facility] Nucleated RBC/100 WBC (Bld) [Ratio] 0 % [facility] Platelets (Bld) [#/Vol] 301 10*3/uL [facility] RBC (Bld) [#/Vol] 4.22 10*6/uL [facility] WBC (Bld) [#/Vol] 11.1 10*3/uL [facility] Basophils (Bld) [#/Vol] 0.01 x10*3/uL Normal 0.00-0.10 [facility] Comment on above: Performed By: #### 3 4529-8 #### SANTOSH BAI ([id number]) [facility] ([facility]) [address] [place] [address] Basophils/100 WBC (Bld) 0.1 % Normal 0.0-2.0 [facility] Comment on above: Performed By: #### 3 4529-8 #### SANTOSH BAI ([id number]) [facility] ([facility]) [address] [place] [address] Eosinophils (Bld) [#/Vol] 0.32 x10*3/uL Normal 0.00-0.70 [facility] Comment on above: Performed By: #### 3 4529-8 #### SANTOSH BAI ([id number]) [facility] ([facility]) [address] [place] [address] Eosinophils/100 WBC (Bld) 2.9 % Normal 0.0-6.0 [facility] Comment on above: Performed By: #### 3 4529-8 #### SANTOSH BAI ([id number]) [facility] ([facility]) [address] [place] [address] Erythrocyte distribution width (RBC) [Ratio] 13.2 % Normal 11.5-14.5 [facility] Comment on above: Performed By: #### 3 4529-8 #### SANTOSH BAI ([id number]) [facility] ([facility]) [address] [place] [address] Hematocrit (Bld) [Volume fraction] 39.6 % Normal 36.0-46.0 [facility] Comment on above: Performed By: #### 3 4529-8 #### SANTOSH BAI ([id number]) [facility] ([facility]) [address] [place] [address] Hemoglobin (Bld) [Mass/Vol] 13.0 g/dL Normal 12.0-16.0 [facility] Comment on above: Performed By: #### 3 4529-8 #### SANTOSH BAI (21305) [facility] ([facility]) [address] [place] [address] Immature granulocytes (Bld) [#/Vol] 0.07 x10*3/uL Normal 0.00-0.70 [facility] Comment on above: Performed By: #### 3 4529-8 #### SANTOSH BAI ([id number]) [facility] ([facility]) [address] [place] [phone] Immature granulocytes/100 WBC (Bld) 0.6 % Normal 0.0-0.9 [facility] Comment on above: Result Comment: Aspen ture Granulocyte Count (IG) includes promyelocytes, myelocytes and metamyelocytes but does not include bands. Percent differential counts (%) should be interpreted in the context of the absolute cell counts (cells/UL). Performed By: #### 3 4529-8 #### SANTOSH BAI ([id number]) [facility] ([facility]) [address] [place] [phone] Lymphocytes (Bld) [#/Vol] 2.86 x10*3/uL Normal 1.20-4.80 [facility] Comment on above: Performed By: #### 3 4529-8 #### SANTOSH BAI ([id number]) [facility] ([facility]) [address] [place] [address] Lymphocytes/100 WBC (Bld) 25.8 % Normal 13.0-44.0 [facility] Comment on above: Performed By: #### 3 4529-8 #### SANTOSH BAI ([id number]) [facility] ([facility]) [address] [place] [address] MCH (RBC) [Entitic mass] 30.8 pg Normal 26.0-34.0 [facility] Comment on above: Performed By: #### 3 4529-8 #### SANTOSH BAI ([id number]) [facility] ([facility]) [address] [place] [address] MCHC (RBC) [Mass/Vol] 32.8 g/dL Normal 32.0-36.0 [facility] Comment on above: Performed By: #### 3 4529-8 #### SANTOSH BAI ([id number]) [facility] ([facility]) [address] [place] [address] MCV (RBC) [Entitic vol] 94 fL Normal 80-100 [facility] Comment on above: Performed By: #### 3 4529-8 #### SANTOSH BAI ([id number]) [facility] ([facility]) [address] [place] [address] Monocytes (Bld) [#/Vol] 0.79 x10*3/uL Normal 0.10-1.00 [facility] Comment on above: Performed By: #### 3 4529-8 #### SANTOSH BAI ([id number]) [facility] ([facility]) [address] [place] [address] Monocytes/100 WBC (Bld) 7.1 % Normal 2.0-10.0 [facility] Comment on above: Performed By: #### 3 4529-8 #### SANTOSH BAI ([id number]) [facility] ([facility]) [address] [place] [address] Neutrophils (Bld) [#/Vol] 7.02 x10*3/uL Normal 1.20-7.70 [facility] Comment on above: Result Comment: Perc ent differential counts (%) should be interpreted in the context of the absolute cell counts (cells/uL). Performed By: #### 3 4529-8 #### SANTOSH BAI ([id number]) [facility] ([facility]) [address] [place] [address] Neutrophils/100 WBC (Bld) 63.5 % Normal 40.0-80.0 [facility] Comment on above: Performed By: #### 3 4529-8 #### SANTOSH BAI ([id number]) [facility] ([facility]) [address] [place] [address] Nucleated RBC/100 WBC (Bld) [Ratio] 0.0 /100 WBCs Normal 0.0-0.0 [facility] Comment on above: Performed By: #### 3 4529-8 #### SANTOSH BAI ([id number]) [facility] ([facility]) [address] [place] [address] Platelets (Bld) [#/Vol] 301 x10*3/uL Normal 150-450 [facility] Comment on above: Performed By: #### 3 4529-8 #### SANTOSH BAI ([id number]) [facility] ([facility]) [address] [place] [address] RBC (Bld) [#/Vol] 4.22 x10*6/uL Normal 4.00-5.20 [facility] Comment on above: Performed By: #### 3 4529-8 #### SANTOSH BAI ([id number]) [facility] ([facility]) [address] [place] [address] WBC (Bld) [#/Vol] 11.1 x10*3/uL Normal 4.4-11.3 [facility] Comment on above: Performed By: #### 3 4529-8 #### SANTOSH BAI ([id number]) [facility] ([facility]) [address] [place] [address] Coding Summaryon 01-07-2024 Coding Summary HTMLBase 64 WgxmlugnKHr1tAy+PGhlYWQ +WV8JFKCaE79ldLGkxW0qK7 NMTElOSywgQVBQTElOSyIgb aKrAJ4qhJIgHLHl IC8+ZR4cJRWvNgwskUDsc4C 7bFN6C77apj9eLLadwZS9IX KcUcDzaqfgi9dnuJo8DWxfB mluOyBt JOMoeA65NZO5fD10Cm02lUP zcGEbr5hjxVf5VjMgPDDxNI G8sDvrYNyho4OgWPRoP23vt BSsy6O1 ELTrsFxriQKeWqDriND1iL1 tWSqzphqnt2prgmwaVnk4da 64eDIqv0Z4eFD5U6DeoyI5H GJvbGQg AnufjFEOpQ3qiedxn6ecpnp sTwQvCLJqENw5WQl1JUGvhL cdYpNyNS39ZNI5JJTpjrGwX 2FsLWFs dQafDyU4j3S8Sl8JM7HCGig eQ7RXQVMBWNkgzEL+PC90cj 45Z9QkVcurFkb9QRRnZTZ4m VQ4nY9m ENDiOQcyp5L7qCD5K4JbalV vde9jn8euIMRvEUtoT79ygN Vlq4L0PBRxyCX4NRApyBsmC iBzaG93 Oyc+NQZkjLmtg6RwLqfyx0x uo1cirOp0GziaQOOxxzQegY fjGZX0w2OpMx4jUTRuiZC2n SE8oM2t NvRvFfY0EYweK808OcTldEF fFtrqG26bO6MwvBI+PHRyPj v1PARezLquNZ0dV8TsFYJjn mctbGVm kHqdLV8zCDJoekxvXBTizJ0 uYTRzF8j4GpDeFyK5GHozB8 XkJHHjrjwhLp81rU7wXeHsN zS6UAsk K2UdamA4QIUbnWOmEXdkCEB 1Q45ug9D4AXLhQIZnOVK3sN L7pH7khWhdvekdvZKeeGszw mVydGlj MArgENmzN719LBHrcVdiHrH vZGluZyBEYXRlOiAgMTAvMT UvMjAyNDwvdGQ+CLCuBZH1q WxlPSAn yWLdJEpnSy9eoYtagUatBW5 jYRCwuyymQWYnjS1pBAAfpZ UnjDdvPY1mDJGqxeqnn788M iAxMHB0 CFSzoVRwN6MqdS8aGsWaIJG zTQZcI9AbxQLvNVqcM117YT atUcU0LRVwsmBcO3NpJCSsi WduOiB0 d7E8Et2Bk3NhogqsN5RnpLR eKeZdVufrMDd6S8BcArftdT I+PK27DTGjSX62UFj8DAQ7q WxlPSdi PFPsE3AlhF7nZcDsVNWmTZT kOyc+PHRhYmxlIHdpZHRoPS tlSPIaKzBvbNmdFR5rPt6aQ GVyLWNv wQhcyGZzKfAkf4itHUGvSMg jHF5dbBjeD1EmlWB3NCYqz0 a2Ym72D04dI1KevQI+PGNvb HU2mYF7 eQ6lLjQoAmT6XPzwR711BiQ fxSRdJhmgv2dpa5jfnBv2Wz R6KIFupgCjdOpmDWL2a2PlE q46L47x IHdpZHRoPSIxNSUiIHZhbGl bex3loE3sOl8+SELjqHI4vF J6oN5jWhNmBcD3TTfjX503Z nRvcCIv Jjzmf2adj6floUv2AtXlEFA uhxEsoHvaPHQ9m4SdVa22D4 WztCtfy5OcYdg4pb76bEDac 0Q0kMM0 D5QiKVAvmegcxYQlnHlkRI6 gBJPpfppuFGYxzX0zOTFjO7 x8HtLtYwT7WCujC1JauxI6U GJvbGQg IWJroLAWtC5yuwmej0tocip zGfTtAOClLMc7FWe5ZHWyuD lwHeXoYZU3NiE6JYB1vMKvd A8yhTcv uqqkzB8tKur+HDF2dVUkwOQ OUV1kApwegBO+AZRnDYC7iH xpWHzeIDCqgM0xIHKvV3c2J iAwLjA1 UMctY7KbfnX8NOMsxMGhWLX dkMFMpQ2poeefu0bvkwlqWl LvREPbABd9FXd4VABshCthB iBsZWZ0 EoZ8HIT5xARplO9msJetlfn erA7kPqj+DcereVdhUBR8EC u2F3HgLqc2YJPbzQhfEU8hp GFkZGlu Bg8fuRtxoIfrEN4wROFhdlu vr001YzUck1lzGUTlwYEsGJ uaLTK0J24hx0F2QZDkECJbE WD5hKM2 rR5xiLyrtjmrtZCqyOawdoT sjVnxGXmhVMmsF871AFXdnA qcHlQjUKo6G8LrSnw0FWQia ArnXC7t oGPxWHazQw3cxDwafHnuVT2 sUAOfvkkey933NsOgw9hiPL NqrTCcAThuSPZ5Y19yr7Y4T CMwMDAw DQF0bYR0mL5qoIhoiwmqpUZ mdDsgdmVydGljYWwtYWxpZ2 62DWOacDbuHvVfpIb9U5MaH be5WMNh sNgnBB5ovOXxDSrmQq5ydUk dsIgxIB1fKJGeaywab606Jv Dnq5weUJScqYLyWKiyMJS5D 37pg8M2 TKHsJIBdKGD6hRS7vU0onWb nbjogbGVmdDsgdmVydGljYW hvUYenK724SRSovEtaBmJwd GllbnQg BBqqZLv8G0PmJhrajFY+PC9 1NFYaCL92bBVlnDCsh2wgtV t5BmNeEZRqHYU0hEyqSVypy 3JkZXIt P87cbEYpk4P6WRPfjAdcxRK mHrImzTB2zX0bNCcaglezr8 agynaoDtkol4bdjl48qN08G 29sIHdp ZHRoPSIzMCUiIHZhbGlnbj0 tsI9oQi2+UFMnnNR4aBQ3jY 4sTZAsYaC2EVzeU375LyLuk CIvPjxj f8uum2iqlTm7EkH8JTSuxyC wkGefWJY9u0GjDm67Z57vNM dpZHRoPSIyMCUiIHZhbGlnb u6nvE5j Ii8+JQNgzGV4fPW7tL4bIlH mKpT9UYqfL835RqJvlQCgId jtK98iW5LzoHE+WMAhJiy0L CBzdHls FB0mjJOvZZzrKz9kBTL6AgW eQzFjBYkgF3SbVNUigpypyb gqdBY9IYQfKTNikD53Ef5ui DogMTBw qNLZzA8pmtxkc3mpcztfSrG oFYOoRUb2HJy1QQThfNrdOv ViVDB2LdF8DON7aEMosP7io Glnbjog oC9qQ5KxTNNsphtsGq75fI2 fTuVqFyW7BVwrHmf+TElFQi kuLVRDMOCXYNLLOkhMYkC3A 0MdIlp1 NZCqxYqzAD2htEUmIOtjMs1 pvClvwGtoXA1tTKYssriyRV GudS7nXEKttPTnlVjnAW5rV TBpbjtm d090XrQqJQX3FVFzqFNtM7A kkZ3iZeMkAUQnGKJdI1MioU GdVRwaZ321KBpmCzX3BLFyn tWaI0Eu QJCkzAnfEwL4t5K6Jp5jQr9 wTX4iWRo5FM28UM65wZQqo7 N2sIX2W2UpRPLblpxqczxqb OC9KVBq RNDnbZ80cKChABjnZj2uz5R 9z308TVVuTZWwzZ73Jo3ieN omQXTrpAZIwC6ljlasr6zeg jogIzAw IKRsBVd3YVf0JXJetNnqHdO jPOL6ImP8EOE2fSWwaH3gkR qvneaftT6aFoh+NDYgWWVhc bS5X6Hw Kqb8YWZeiAhgLR7gvJWlVTl eGl2rfNqglDygCE8yIUNbtd fbCFDpvU6dLLPuqUMasAmbA A4rKPQi sugbl911ZdEcHPK3MFYfeFT jO1TyiM1sIzNgPWVpSEDtF3 WmfEYcNVssO900EQikUaA5J HZlcnRp D7SsREPomTauBnR7g4Z5Ma9 STN1FRGB7B1FzRee5FRTngB onTA8liEGbCTswFj7dzOkpr RnnDI1d BMVdswveKXQneV1kXKFgoLL dlAhuHI9nUGLxngtzr995Lr KeFFM4PAUayYVpF4GvyN7dU iAjMDAw BBOpR7JasRLfRCvqG864XEv tYiC8QAOztcMqW2FmOAPjnZ vgHfA2w4A5Ul2CuKCqN8VpX 7n6S2Vg PjwvdHI+MA57KZStVY10zNM krYTrc3tevMp2VtTpYDEeYT Z3sBwfPSebg0DtNTTfW65jq EVcf8O5 UTRdnYgfzGAsIjMcgLC2qP5 xSBtrtvdab8ukalsbPwvqa6 dbzy04xU12X88rYRbnSLEwS SIzMCUi XRXkiHmrnt0zgK1zIt4+PGN jcGK7wZZ1xP3iGbKkRrP1DW veD120MhQlkHWlCkimc4pcd 0wvdZz9 SePsNJJczbHbqXjcTUR7w2E uZy58Y27rWYgfKXSvNVOgPJ WaTCTcuUmkcs9cpD2sAd6+P A8bx8qz va19yA95jYR+UPPzZHJ2mBq fWPfeTZOvzN0iOKioPiS4ZH AqFuLqiJ86eCJnFZaxMu8ad WdodDog FQ2wMVGobcdzf698WyPam2k oTWXzvPZeQQirYLY2Q90lz3 N4VIXtZJZcYIN0gUD3vD3co Glnbjog bGVmdDsgdmVydGljYWwtYWx lX865KLBdhMxeOwGdhZPkT8 admbDVSJ4nOgdczPD+PHRkI DL6cWax UXmjZCXbtA4yZZUaM4h3XpH bNqA1QRybJ4VbdpT3MAUdhQ FpGMDwsMOSzH5dmphgx0psx jogIzAw WKPbPEo6JGu3PDSwzIlnEwH qHOV5AwH5MUY5tHOjnD0yfQ kluxcbcJ5zDgo+RklOOjwvd GQ+PHRk MYI9eDvjTTnvUFFziL8xCOY oF6o8IjNvWzF3LXtoE9Nlix H5ITZbjFQzYFOecJIIuX9tj wjsy7xi jugxYjQuOKYrVIy6NZs0OBW nkTfoCgUwSNK5HoQ9BQV1eH FnoZ5wiWzhnulqtF4hZnt+T VJOOjwv dGQ+YIKxIVH6jMofVBwrSPY ohY5qIDLsN6k2YkZyMmR6RO ixL8OcflF2IIVcfPKqBLZpr LRXwN0e pumcb5pxdpqfYjQyYYYtTTy 7ATn9KROjmHzxFjPqICW4Nl F8XOP9sHSvgK6feEngqcqtr G9wOyc+ CCF8JVI8BY32NI19F9CeCxm vdGFibGU+PHRhYmxlIHdpZH PzGVmyDUPqJcDhkIyaPI8nB u7hBOFa LWN (more content not included)... Normal [facility] ED Note-Physicianon 01-07-20 ED Note-Physician ED Note-Physician Basic Information Time Seen: [place] MILES, Robert 01/06/2024 11:42 Chief Complaint Pt presents to [...] Rosas In 3 days 01/09/2024 EDT [address], [facility] [address] [address]- Business (1) Additional Instructions: Patient Education Lumbosacral Radiculopathy [...] made to ensure accuracy, however, inadvertently computerized tissue inserter mistakes may be present. Appropriate healthcare PPE [...] History Hysterecto (more content not included)... Normal [facility] Comment on above: Result Comment: Elec tronically Signed By: Robert Taylor PA-C\.br\Date and Time Signed: 01/06/24 13:52 EDT\.br\Electronically Co-Signed By: Jorge Mcintosh DO\.br\Date and Time Co-Signed: 01/07/24 08:31 EDT CBC W Auto Differential pane l (Bld)on 01-06-2024 Basophils (Bld) [#/Vol] 0.02 10*3/uL [facility] Basophils/100 WBC (Bld) 0.2 % 0.0 - 2.0 % [facility] Eosinophils (Bld) [#/Vol] 0.32 10*3/uL [facility] Eosinophils/100 WBC (Bld) 2.6 % 0.0 - 6.0 % [facility] Erythrocyte distribution width (RBC) [Ratio] 13.2 % 11.5 - 14.5 % [facility] Hematocrit (Bld) [Volume fraction] 41.3 % 36.0 - 46.0 % [facility] Hemoglobin (Bld) [Mass/Vol] 13.6 g/dL 12.0 - 16.0 g/dL [facility] Immature granulocytes (Bld) [#/Vol] 0.08 10*3/uL [facility] Immature granulocytes/100 WBC (Bld) 0.6 % 0.0 - 0.9 % [facility] Comment on above: Immature Granulocyte Count (IG) includes promyelocytes, myelocytes and metamyelocytes but does not include bands. Percent differential counts (%) should be interpreted in the context of the absolute cell counts (cells/UL). Interpretation and review of laboratory results Abnormal [facility] Lymphocytes (Bld) [#/Vol] 3.09 10*3/uL [facility] Lymphocytes/100 WBC (Bld) 25.1 % 13.0 - 44.0 % [facility] MCH (RBC) [Entitic mass] 30.6 pg 26.0 - 34.0 pg [facility] MCHC (RBC) [Mass/Vol] 32.9 g/dL 32.0 - 36.0 g/dL [facility] MCV (RBC) [Entitic vol] 93 fL 80 - 100 fL [facility] Monocytes (Bld) [#/Vol] 0.88 10*3/uL [facility] Monocytes/100 WBC (Bld) 7.1 % 2.0 - 10.0 % [facility] Neutrophils (Bld) [#/Vol] 7.93 10*3/uL High [facility] Comment on above: Percent differential counts (%) should be interpreted in the context of the absolute cell counts (cells/uL). Neutrophils/100 WBC (Bld) 64.4 % 40.0 - 80.0 % [facility] Nucleated RBC/100 WBC (Bld) [Ratio] 0 % [facility] Platelets (Bld) [#/Vol] 339 10*3/uL [facility] RBC (Bld) [#/Vol] 4.45 10*6/uL [facility] WBC (Bld) [#/Vol] 12.3 10*3/uL High [facility] Basophils (Bld) [#/Vol] 0.02 x10*3/uL Normal 0.00-0.10 [facility] Comment on above: Performed By: #### 5 7021-8 #### SANTOSH BAI ([id number]) [facility] ([facility] [facility]) [address] [place] [address] Basophils/100 WBC (Bld) 0.2 % Normal 0.0-2.0 [facility] Comment on above: Performed By: #### 5 7021-8 #### SANTOSH BAI ([id number]) [facility] ([facility]) [address] [place] [address] Eosinophils (Bld) [#/Vol] 0.32 x10*3/uL Normal 0.00-0.70 [facility] Comment on above: Performed By: #### 5 7021-8 #### SANTOSH BAI ([id number]) [facility] ([facility]) [address] [place] [address] Eosinophils/100 WBC (Bld) 2.6 % Normal 0.0-6.0 [facility] Comment on above: Performed By: #### 5 7021-8 #### SANTOSH BAI ([id number]) [facility] ([facility]) [address] [place] [address] Erythrocyte distribution width (RBC) [Ratio] 13.2 % Normal 11.5-14.5 [facility] Comment on above: Performed By: #### 5 7021-8 #### SANTOSH BAI ([id number]) [facility] ([facility]) [address] [place] [address] Hematocrit (Bld) [Volume fraction] 41.3 % Normal 36.0-46.0 [facility] Comment on above: Performed By: #### 5 7021-8 #### SANTOSH BAI ([id number]) [facility] ([facility]) [address] [place] [address] Hemoglobin (Bld) [Mass/Vol] 13.6 g/dL Normal 12.0-16.0 [facility] Comment on above: Performed By: #### 5 7021-8 #### SANTOSH BAI ([id number]) [facility] ([facility]) [address] [place] [address] Immature granulocytes (Bld) [#/Vol] 0.08 x10*3/uL Normal 0.00-0.70 [facility] Comment on above: Performed By: #### 5 7021-8 #### SANTOSH BAI ([id number]) [facility] ([facility]) [address] [place] [phone] Immature granulocytes/100 WBC (Bld) 0.6 % Normal 0.0-0.9 [facility] Comment on above: Result Comment: Aspen ture Granulocyte Count (IG) includes promyelocytes, myelocytes and metamyelocytes but does not include bands. Percent differential counts (%) should be interpreted in the context of the absolute cell counts (cells/UL). Performed By: #### 5 7021-8 #### SANTOSH BAI ([id number]) [facility] ([facility]) [address] [place] [address] Lymphocytes (Bld) [#/Vol] 3.09 x10*3/uL Normal 1.20-4.80 [facility] Comment on above: Performed By: #### 5 7021-8 #### SANTOSH BAI ([id number]) [facility] ([facility]) [address] [place] [phone] Lymphocytes/100 WBC (Bld) 25.1 % Normal 13.0-44.0 [facility] Comment on above: Performed By: #### 5 7021-8 #### SANTOSH BAI ([id number]) [facility] ([facility] [place]) [address] [place] [phone] MCH (RBC) [Entitic mass] 30.6 pg Normal 26.0-34.0 [facility] Comment on above: Performed By: #### 5 7021-8 #### SANTOSH BAI ([id number]) [facility] ([facility] [place]) [address] [place] [phone] MCHC (RBC) [Mass/Vol] 32.9 g/dL Normal 32.0-36.0 [facility] Comment on above: Performed By: #### 5 7021-8 #### SANTOSH BAI ([id number]) [facility] ([facility]) [address] [place] [address] MCV (RBC) [Entitic vol] 93 fL Normal 80-100 [facility] Comment on above: Performed By: #### 5 7021-8 #### SANTOSH BAI ([id number]) [facility] ([facility]) [address] [place] [phone] Monocytes (Bld) [#/Vol] 0.88 x10*3/uL Normal 0.10-1.00 [facility] Comment on above: Performed By: #### 5 7021-8 #### SANTOSH BAI ([id number]) [facility] ([facility]) [address] [place] [phone] Monocytes/100 WBC (Bld) 7.1 % Normal 2.0-10.0 [facility] Comment on above: Performed By: #### 5 7021-8 #### SANTOSH BAI ([id number]) [facility] ([facility]) [address] [place] [address] Neutrophils (Bld) [#/Vol] 7.93 x10*3/uL High 1.20-7.70 [facility] Comment on above: Result Comment: Perc ent differential counts (%) should be interpreted in the context of the absolute cell counts (cells/uL). Performed By: #### 5 7021-8 #### SANTOSH BAI ([id number]) [facility] ([facility]) [address] [place] [address] Neutrophils/100 WBC (Bld) 64.4 % Normal 40.0-80.0 [facility] Comment on above: Performed By: #### 5 7021-8 #### SANTOSH BAI ([id number]) [facility] ([facility]) [address] [place] [address] Nucleated RBC/100 WBC (Bld) [Ratio] 0.0 /100 WBCs Normal 0.0-0.0 [facility] Comment on above: Performed By: #### 5 7021-8 #### SANTOSH BAI ([id number]) [facility] ([facility]) [address] [place] [address] Platelets (Bld) [#/Vol] 339 x10*3/uL Normal 150-450 [facility] Comment on above: Performed By: #### 5 7021-8 #### SANTOSH BAI ([id number]) [facility] ([facility]) [address] [place] [id number] RBC (Bld) [#/Vol] 4.45 x10*6/uL Normal 4.00-5.20 [facility] Comment on above: Performed By: #### 5 7021-8 #### SANTOSH BAI ([id number]) [facility] ([facility]) [address] [place] [address] WBC (Bld) [#/Vol] 12.3 x10*3/uL High 4.4-11.3 [facility] Comment on above: Performed By: #### 5 7021-8 #### SANTOSH BAI ([id number]) [facility] ([facility]) [address] [place] [address] Comprehensive metabolic 2000 panelon 01-06-2024 Albumin BCP dye [Mass/Vol] 3.7 g/dL 3.4 - 5.0 g/dL [facility] ALP [Catalytic activity/Vol] 94 U/L 33 - 110 U/L [facility] ALT With P-5'-P [Catalytic activity/Vol] 14 U/L 7 - 45 U/L [facility] Comment on above: Patients treated wit h Sulfasalazine may generate falsely decreased results for ALT. Anion gap [Moles/Vol] 10 mmol/L 10 - 2 0 mmol/L [facility] AST With P-5'-P [Catalytic activity/Vol] 17 U/L 9 - 39 U/L [facility] Comment on above: MILD HEMOLYSIS DETEC LISA. The result may be falsely elevated due to hemolysis or other interferents. Clinical correlation is recommended. Repeat testing may be considered. Bilirubin [Mass/Vol] 0.2 mg/dL 0.0 - 1 .2 mg/dL [facility] Calcium [Mass/Vol] 7.9 mg/dL Low 8.6 - 10. 3 mg/dL [facility] Chloride [Moles/Vol] 98 mmol/L 98 - 10 7 mmol/L [facility] CO2 [Moles/Vol] 31 mmol/L 21 - 32 mmol/L [facility] Creatinine [Mass/Vol] 0.78 mg/dL 0.50 - 1.05 mg/dL [facility] eGFR - PINF [facility] Comment on above: Calculations of juan antonio mated GFR are performed using the 2020 CKD-EPI Study Refit equation without the race variable for the IDMS-Traceable creatinine methods. https://jasn.asnjournals.org/content/early/ASN.86312 50260 Glucose [Mass/Vol] 124 mg/dL High 74 - 99 mg/dL [facility] Interpretation and review of laboratory results Abnormal [facility] Potassium [Moles/Vol] 3.8 mmol/L 3.5 - 5.3 mmol/L [facility] Comment on above: MILD HEMOLYSIS DETEC LISA. The result may be falsely elevated due to hemolysis or other interferents. Clinical correlation is recommended. Repeat testing may be considered. Protein [Mass/Vol] 6.6 g/dL 6.4 - 8.2 g/dL [facility] Sodium [Moles/Vol] 135 mmol/L Low 136 - 145 mmol/L [facility] Urea nitrogen [Mass/Vol] 17 mg/dL 6 - 23 mg/dL [facility] Albumin BCP dye [Mass/Vol] 3.7 g/dL Normal 3.4-5.0 [facility] Comment on above: Performed By: #### 5 7021-8 #### SANTOSH BAI ([id number]) [facility] ([facility]) [address] [place], [place] [id number] ALP [Catalytic activity/Vol] 94 U/L Normal 33-110 [facility] Comment on above: Performed By: #### 5 7021-8 #### SANTOSH BAI ([id number]) [facility] ([facility]) [address] [place] [place] [phone] ALT With P-5'-P [Catalytic activity/Vol] 14 U/L Normal 7-45 [facility] Comment on above: Result Comment: Katia ents treated with Sulfasalazine may generate falsely decreased results for ALT. Performed By: #### 5 7021-8 #### SANTOSH BAI ([id number]) [facility] ([facility]) [address] [place] [address] Anion gap [Moles/Vol] 10 mmol/L Normal 10-20 [facility] Comment on above: Performed By: #### 5 7021-8 #### SANTOSH BAI ([id number]) [facility] ([facility]) [address] [place] [address] AST With P-5'-P [Catalytic activity/Vol] 17 U/L Normal 9-39 [facility] Comment on above: Result Comment: MILD HEMOLYSIS DETECTED. The result may be falsely elevated due to hemolysis or other interferents. Clinical correlation is recommended. Repeat testing may be considered. Performed By: #### 5 7021-8 #### SANTOSH BAI ([id number]) [facility] ([facility]) [address] [place] [address] Bilirubin [Mass/Vol] 0.2 mg/dL Normal 0.0-1.2 [facility] Comment on above: Performed By: #### 5 7021-8 #### SANTOSH BAI ([id number]) [facility] ([facility]) [address] [place] [address] Calcium [Mass/Vol] 7.9 mg/dL Low 8.6-10.3 [facility] Comment on above: Performed By: #### 5 7021-8 #### SANTOSH BAI ([id number]) [facility] ([facility]) [address] [place] [address] Chloride [Moles/Vol] 98 mmol/L Normal 98-107 [facility] Comment on above: Performed By: #### 5 7021-8 #### SANTOSH BAI ([id number]) [facility] ([facility]) [address] [place] [address] CO2 [Moles/Vol] 31 mmol/L Normal 21-32 [facility] Comment on above: Performed By: #### 5 7021-8 #### SANTOSH BAI ([id number]) [facility] ([facility]) [address] [place] [address] Creatinine [Mass/Vol] 0.78 mg/dL Normal 0.50-1.05 [facility] Comment on above: Performed By: #### 5 7021-8 #### SANTOSH BAI ([id number]) [facility] ([facility]) [address] [place] [address] GFR/1.73 sq M.predicted MDRD (S/P/Bld) [Vol rate/Area] mL/min/{1.73_m2} Normal >60 [facility] Comment on above: Result Comment: Calc ulations of estimated GFR are performed using the 2020 CKD-EPI Study Refit equation without the race variable for the IDMS-Traceable creatinine methods. https://jasn.asnjournals.org/content/early//ASN.65389 60769 Performed By: #### 5 7021-8 #### SANTOSH BAI ([id number]) [facility] ([facility]) [address] [place] [address] Glucose [Mass/Vol] 124 mg/dL High 74-99 [facility] Comment on above: Performed By: #### 5 7021-8 #### SANTOSH BAI ([id number]) [facility] ([facility]) [address] [place] [address] Potassium [Moles/Vol] 3.8 mmol/L Normal 3.5-5.3 [facility] Comment on above: Result Comment: MILD HEMOLYSIS DETECTED. The result may be falsely elevated due to hemolysis or other interferents. Clinical correlation is recommended. Repeat testing may be considered. Performed By: #### 5 7021-8 #### SANTOSH BAI ([id number]) [facility] ([facility]) [address] [place] [address] Protein [Mass/Vol] 6.6 g/dL Normal 6.4-8.2 [facility] Comment on above: Performed By: #### 5 7021-8 #### SANTOSH BAI ([id number]) [facility] ([facility]) [address] [place] [address] Sodium [Moles/Vol] 135 mmol/L Low 136-145 [facility] Comment on above: Performed By: #### 5 7021-8 #### SANTOSH BAI ([id number]) [facility] ([facility]) [address] [place] [address] Urea nitrogen [Mass/Vol] 17 mg/dL Normal 6-23 [facility] Comment on above: Performed By: #### 5 7021-8 #### SANTOSH BAI ([id number]) [facility] ([facility]) [address] [place] [address] ED Clinical Summaryon 2023 ED Clinical Summary ED Clinical Summary [place] [address] ED Clinical Summary Person Information Name: JREAD TRACY [place] Age: 48 Years : 1975 Sex: Female Language: Citizen Of [place] PCP: Cheyanne Rincon Marital Status: Visit Id: [...] 01/06/2024 13:12:35 01/06/2024 13:12:35 01/06/2024 13:12:35 AD[address]: [address] [place], [place] [address]Jazmine [facility] [phone] PHYS DOC NOTES: MEDICAL INFORMATION: Prescriptions Given: [...] Follow up: With: Address: When: Cheyanne Rosas [address] [place] [address] A, [place] [phone] Business (1) In 3 days 01/09/2024 DIAGNOSIS: Lumbar radiculopathy; Pharyngitis Normal [facility] ED Patient Summaryon ED Patient Summary ED Patient Summary [address] [address] Patient Discharge Instructions Person Information Name: JERAD TRACY Age: 48 Years Arrival Date: 01/06/2024 11:35:28 Discharge Diagnosis: Lumbar radiculopathy; Pharyngitis Primary Care Physician: Cheyanne Rincon Provider Information Primary Provider: Jorge Mcintosh DO [employer] Director:Robert Taylor PA-C The exam and treatment you received in the Emergency Department were for an urgent problem and are not intended as complete care. It is important that you follow up with a doctor, nurse practitioner, or physician?s dermatology physician assistant for ongoing care. If your symptoms [...] Instructions: With: Address: When: Cheyanne Rosas [address], [address], [place] [phone] Business (1) In 3 days 01/09/2024 In the event that this physician does not participate in your insurance network, please consult with your insurance company to find a nearby participating provider. Patient Education Materials: Lumbosacral Radiculopathy A MESSAGE TO ALL PATIENTS REGARDING OPIOIDS PRESCRIPTION OPIOIDS: WHAT YOU NEED TO KNOW Prescription opioids can be used to help relieve cahxfdps-po-zxawuw pain and are often prescribed following a [...] be struggling with addiction, tell your health technical healthcare consultant and ask for guidance or call [facility] (more content not included)... Normal [facility] XR Neck Soft Tissueon 2023 XR Neck [...] mGy = na DAP = na Normal [facility] Basic metabolic 2000 panelon 01-04-2024 Anion gap [Moles/Vol] 13 mmol/L 10 - 2 0 mmol/L [facility] Calcium [Mass/Vol] 8.3 mg/dL Low 8.6 - 10. 3 mg/dL [facility] Chloride [Moles/Vol] 101 mmol/L 98 - 10 7 mmol/L [facility] CO2 [Moles/Vol] 25 mmol/L 21 - 32 mmol/L [facility] Creatinine [Mass/Vol] 0.62 mg/dL 0.50 - 1.05 mg/dL [facility] eGFR - PINF [facility] Comment on above: Calculations of juan antonio mated GFR are performed using the 2020 CKD-EPI Study Refit equation without the race variable for the IDMS-Traceable creatinine methods. https://jasn.asnjournals.org/content/early/ASN.34038 31263 Glucose [Mass/Vol] 187 mg/dL High 74 - 99 mg/dL [facility] Interpretation and review of laboratory results Abnormal [facility] Potassium [Moles/Vol] 4.2 mmol/L 3.5 - 5.3 mmol/L [facility] Sodium [Moles/Vol] 135 mmol/L Low 136 - 145 mmol/L [facility] Urea nitrogen [Mass/Vol] 15 mg/dL 6 - 23 mg/dL [facility] Anion gap [Moles/Vol] 13 mmol/L Normal 10-20 [facility] Comment on above: Performed By: #### 5 7021-8 #### SANTOSH RICHARDSON ([id number]) [facility] ([facility]) [address] [place] [address] Calcium [Mass/Vol] 8.3 mg/dL Low 8.6-10.3 [facility] Comment on above: Performed By: #### 5 7021-8 #### SANTOSH BAI ([id number]) [facility] ([facility]) [address] [place] [address] Chloride [Moles/Vol] 101 mmol/L Normal 98-107 [facility] Comment on above: Performed By: #### 5 7021-8 #### SANTOSH BAI ([id number]) [facility] ([facility]) [address] [place] [address] CO2 [Moles/Vol] 25 mmol/L Normal 21-32 [facility] Comment on above: Performed By: #### 5 7021-8 #### SANTOSH BAI ([id number]) [facility] ([facility] [place]) [address] [place] [address] Creatinine [Mass/Vol] 0.62 mg/dL Normal 0.50-1.05 [facility] Comment on above: Performed By: #### 5 7021-8 #### SANTOSH BAI ([id number]) [facility] ([facility] [place]) [address] [place] [address] GFR/1.73 sq M.predicted MDRD (S/P/Bld) [Vol rate/Area] mL/min/{1.73_m2} Normal >60 [facility] Comment on above: Result Comment: Calc ulations of estimated GFR are performed using the 2020 CKD-EPI Study Refit equation without the race variable for the IDMS-Traceable creatinine methods. https://jasn.asnjournals.org/content/early//ASN.53631 04530 Performed By: #### 5 7021-8 #### SANTOSH BAI ([id number]) [facility] ([facility] [place]) [address] [place] [address] Glucose [Mass/Vol] 187 mg/dL High 74-99 [facility] Comment on above: Performed By: #### 5 7021-8 #### SANTOSH BAI ([id number]) [facility] ([facility] [place]) [address] [place] [address] Potassium [Moles/Vol] 4.2 mmol/L Normal 3.5-5.3 [facility] Comment on above: Performed By: #### 5 7021-8 #### SANTOSH BAI ([id number]) [facility] ([facility] [place]) [address] [place] [id number] Sodium [Moles/Vol] 135 mmol/L Low 136-145 [facility] Comment on above: Performed By: #### 5 7021-8 #### SANTOSH BAI ([id number]) [facility] ([facility] [place]) [address] [place] [id number] Urea nitrogen [Mass/Vol] 15 mg/dL Normal 6-23 [facility] Comment on above: Performed By: #### 5 7021-8 #### SANTOSH BAI ([id number]) [facility] ([facility] [place]) [address] [place] [address] CBC panel Auto (Bld)on 01-03 Erythrocyte distribution width (RBC) [Ratio] 13.2 % 11.5 - 14.5 % [facility] Hematocrit (Bld) [Volume fraction] 41.9 % 36.0 - 46.0 % [facility] Hemoglobin (Bld) [Mass/Vol] 13.3 g/dL 12.0 - 16.0 g/dL [facility] Interpretation and review of laboratory results Abnormal [facility] MCH (RBC) [Entitic mass] 30.4 pg 26.0 - 34.0 pg [facility] MCHC (RBC) [Mass/Vol] 31.7 g/dL Low 32.0 - 36.0 g/dL [facility] MCV (RBC) [Entitic vol] 96 fL 80 - 100 fL [facility] Nucleated RBC/100 WBC (Bld) [Ratio] 0.0 % [facility] Platelets (Bld) [#/Vol] 320 10*3/uL [facility] RBC (Bld) [#/Vol] 4.38 10*6/uL [facility] WBC (Bld) [#/Vol] 12.2 10*3/uL [facility] Erythrocyte distribution width (RBC) [Ratio] 13.2 % Normal 11.5-14.5 [facility] Comment on above: Performed By: #### 5 7021-8 #### SANTOSH BAI ([id number]) [facility] ([facility]) [address] [place] [address] Hematocrit (Bld) [Volume fraction] 41.9 % Normal 36.0-46.0 [facility] Comment on above: Performed By: #### 5 7021-8 #### SANTOSH BAI ([id number]) [facility] ([facility]) [address] [place] [address] Hemoglobin (Bld) [Mass/Vol] 13.3 g/dL Normal 12.0-16.0 [facility] Comment on above: Performed By: #### 5 7021-8 #### SANTOSH BAI ([id number]) [facility] ([facility]) [address] [place] [id number] MCH (RBC) [Entitic mass] 30.4 pg Normal 26.0-34.0 [facility] Comment on above: Performed By: #### 5 7021-8 #### SANTOSH BAI ([id number]) [facility] ([facility]) [address] [place] [address] MCHC (RBC) [Mass/Vol] 31.7 g/dL Low 32.0-36.0 [facility] Comment on above: Performed By: #### 5 7021-8 #### SANTOSH BAI ([id number]) [facility] ([facility] [place]) [address] [place] [address] MCV (RBC) [Entitic vol] 96 fL Normal 80-100 [facility] Comment on above: Performed By: #### 5 7021-8 #### SANTOSH BAI ([id number]) [facility] ([facility]) [address] [place] [address] Nucleated RBC/100 WBC (Bld) [Ratio] 0.0 /100 WBCs Normal 0.0-0.0 [facility] Comment on above: Performed By: #### 5 7021-8 #### SANTOSH BAI ([id number]) [facility] ([facility]) [address] [place] [address] Platelets (Bld) [#/Vol] 320 x10*3/uL Normal 150-450 [facility] Comment on above: Performed By: #### 5 7021-8 #### SANTOSH BAI ([id number]) [facility] ([facility]) [address] [place] [id number] RBC (Bld) [#/Vol] 4.38 x10*6/uL Normal 4.00-5.20 [facility] Comment on above: Performed By: #### 5 7021-8 #### SANTOSH BAI ([id number]) [facility] ([facility]) [address] [place] [address] WBC (Bld) [#/Vol] 12.2 x10*3/uL High 4.4-11.3 [facility] Comment on above: Performed By: #### 5 7021-8 #### SANTOSH BAI ([id number]) [facility] ([facility]) [address] [place] [phone] Basic metabolic 2000 panelon 01-03-2024 Anion gap [Moles/Vol] 13 mmol/L 10 - 2 0 mmol/L [facility] Calcium [Mass/Vol] 8.2 mg/dL Low 8.6 - 10. 3 mg/dL [facility] Chloride [Moles/Vol] 104 mmol/L 98 - 10 7 mmol/L [facility] CO2 [Moles/Vol] 23 mmol/L 21 - 32 mmol/L [facility] Creatinine [Mass/Vol] 0.55 mg/dL 0.50 - 1.05 mg/dL [facility] eGFR - PINF [facility] Comment on above: Calculations of juan antonio mated GFR are performed using the 2020 CKD-EPI Study Refit equation without the race variable for the IDMS-Traceable creatinine methods. https://jasn.asnjournals.org/content//ASN. 75227 Glucose [Mass/Vol] 131 mg/dL High 74 - 99 mg/dL [facility] Interpretation and review of laboratory results Abnormal [facility] Potassium [Moles/Vol] 4.1 mmol/L 3.5 - 5.3 mmol/L [facility] Sodium [Moles/Vol] 136 mmol/L 136 - 145 mmol/L [facility] Urea nitrogen [Mass/Vol] 13 mg/dL 6 - 23 mg/dL [facility] Anion gap [Moles/Vol] 13 mmol/L Normal 10-20 [facility] Comment on above: Performed By: #### 5 7021-8 #### SANTOSH BAI ([id number]) [facility] ([facility]) [address] [place] [address] Calcium [Mass/Vol] 8.2 mg/dL Low 8.6-10.3 [facility] Comment on above: Performed By: #### 5 7021-8 #### SANTOSH BAI ([id number]) [facility] ([facility]) [address] [place] [address] Chloride [Moles/Vol] 104 mmol/L Normal 98-107 [facility] Comment on above: Performed By: #### 5 7021-8 #### SANTOSH BAI ([id number]) [facility] ([facility]) [address] [place] [address] CO2 [Moles/Vol] 23 mmol/L Normal 21-32 [facility] Comment on above: Performed By: #### 5 7021-8 #### SANTOSH BAI ([id number]) [facility] ([facility]) [address] [place] [address] Creatinine [Mass/Vol] 0.55 mg/dL Normal 0.50-1.05 [facility] Comment on above: Performed By: #### 5 7021-8 #### SANTOSH BAI ([id number]) [facility] ([facility]) [address] [place] [address] GFR/1.73 sq M.predicted MDRD (S/P/Bld) [Vol rate/Area] mL/min/{1.73_m2} Normal >60 [facility] Comment on above: Result Comment: Calc ulations of estimated GFR are performed using the 2020 CKD-EPI Study Refit equation without the race variable for the IDMS-Traceable creatinine methods. https://jasn.asnjournals.org/content/early//ASN.35150 44881 Performed By: #### 5 7021-8 #### SANTOSH BAI ([id number]) [facility] ([facility]) [address] [place] [address] Glucose [Mass/Vol] 131 mg/dL High 74-99 [facility] Comment on above: Performed By: #### 5 7021-8 #### SANTOSH BAI ([id number]) [facility] ([facility]) [address] [place] [address] Potassium [Moles/Vol] 4.1 mmol/L Normal 3.5-5.3 [facility] Comment on above: Performed By: #### 5 7021-8 #### SANTOSH BAI ([id number]) [facility] ([facility]) [address] [place] [address] Sodium [Moles/Vol] 136 mmol/L Normal 136-145 [facility] Comment on above: Performed By: #### 5 7021-8 #### SANTOSH BAI ([id number]) [facility] ([facility]) [address] [place] [address] Urea nitrogen [Mass/Vol] 13 mg/dL Normal 6-23 [facility] Comment on above: Performed By: #### 5 7021-8 #### SANTOSH BAI ([id number]) [facility] ([facility]) [address] [place] [address] Basic metabolic 2000 panelon 01-02-2024 Anion gap [Moles/Vol] 12 mmol/L 10 - 2 0 mmol/L [facility] Calcium [Mass/Vol] 8.5 mg/dL Low 8.6 - 10. 3 mg/dL [facility] Chloride [Moles/Vol] 104 mmol/L 98 - 10 7 mmol/L [facility] CO2 [Moles/Vol] 24 mmol/L 21 - 32 mmol/L [facility] Creatinine [Mass/Vol] 0.58 mg/dL 0.50 - 1.05 mg/dL [facility] eGFR - PINF [facility] Comment on above: Calculations of juan antonio mated GFR are performed using the 2020 CKD-EPI Study Refit equation without the race variable for the IDMS-Traceable creatinine methods. https://jasn.asnjournals.org/content//ASN.04462 85419 Glucose [Mass/Vol] 124 mg/dL High 74 - 99 mg/dL [facility] Interpretation and review of laboratory results Abnormal [facility] Potassium [Moles/Vol] 4.1 mmol/L 3.5 - 5.3 mmol/L [facility] Sodium [Moles/Vol] 136 mmol/L 136 - 145 mmol/L [facility] Urea nitrogen [Mass/Vol] 12 mg/dL 6 - 23 mg/dL [facility] Anion gap [Moles/Vol] 12 mmol/L Normal 10-20 [facility] Comment on above: Performed By: #### 5 7021-8 #### SANTOSH BAI ([id number]) [facility] ([facility]) [address] [place] [address] Calcium [Mass/Vol] 8.5 mg/dL Low 8.6-10.3 [facility] Comment on above: Performed By: #### 5 7021-8 #### SANTOSH BAI ([id number]) [facility] ([facility]) [address] [place] [address] Chloride [Moles/Vol] 104 mmol/L Normal 98-107 [facility] Comment on above: Performed By: #### 5 7021-8 #### SANTOSH BAI ([id number]) [facility] ([facility]) [address] [place] [address] CO2 [Moles/Vol] 24 mmol/L Normal 21-32 [facility] Comment on above: Performed By: #### 5 7021-8 #### SANTOSH BAI ([id number]) [facility] ([facility]) [address] [place] [address] Creatinine [Mass/Vol] 0.58 mg/dL Normal 0.50-1.05 [facility] Comment on above: Performed By: #### 5 7021-8 #### SANTOSH BAI ([id number]) [facility] ([facility]) [address] [place] [address] GFR/1.73 sq M.predicted MDRD (S/P/Bld) [Vol rate/Area] mL/min/{1.73_m2} Normal >60 [facility] Comment on above: Result Comment: Calc ulations of estimated GFR are performed using the 2020 CKD-EPI Study Refit equation without the race variable for the IDMS-Traceable creatinine methods. https://jasn.asnjournals.org/content/early//ASN.00440 76776 Performed By: #### 5 7021-8 #### SANTOSH BAI ([id number]) [facility] ([facility]) [address] [place] [address] Glucose [Mass/Vol] 124 mg/dL High 74-99 [facility] Comment on above: Performed By: #### 5 7021-8 #### SANTOSH BAI ([id number]) [facility] ([facility]) [address] [place] [address] Potassium [Moles/Vol] 4.1 mmol/L Normal 3.5-5.3 [facility] Comment on above: Performed By: #### 5 7021-8 #### SANTOSH BAI ([id number]) [facility] ([facility]) [address] [place] [address] Sodium [Moles/Vol] 136 mmol/L Normal 136-145 [facility] Comment on above: Performed By: #### 5 7021-8 #### SANTOSH BAI ([id number]) [facility] ([facility]) [address] [place] [address] Urea nitrogen [Mass/Vol] 12 mg/dL Normal 6-23 [facility] Comment on above: Performed By: #### 5 7021-8 #### SANTOSH BAI ([id number]) [facility] ([facility]) [address] [place] [address] CBC panel Auto (Bld)on 01-01 Erythrocyte distribution width (RBC) [Ratio] 13.3 % 11.5 - 14.5 % [facility] Hematocrit (Bld) [Volume fraction] 41.6 % 36.0 - 46.0 % [facility] Hemoglobin (Bld) [Mass/Vol] 13.0 g/dL 12.0 - 16.0 g/dL [facility] Interpretation and review of laboratory results Abnormal [facility] MCH (RBC) [Entitic mass] 30.0 pg 26.0 - 34.0 pg [facility] MCHC (RBC) [Mass/Vol] 31.3 g/dL Low 32.0 - 36.0 g/dL [facility] MCV (RBC) [Entitic vol] 96 fL 80 - 100 fL [facility] Nucleated RBC/100 WBC (Bld) [Ratio] 0.0 % [facility] Platelets (Bld) [#/Vol] 268 10*3/uL [facility] RBC (Bld) [#/Vol] 4.34 10*6/uL [facility] WBC (Bld) [#/Vol] 9.7 10*3/uL [facility] Erythrocyte distribution width (RBC) [Ratio] 13.3 % Normal 11.5-14.5 [facility] Comment on above: Performed By: #### 5 7021-8 #### SANTOSH BAI ([id number]) [facility] ([facility] [place]) [address] [place] [address] Hematocrit (Bld) [Volume fraction] 41.6 % Normal 36.0-46.0 [facility] Comment on above: Performed By: #### 5 7021-8 #### SANTOSH BAI ([id number]) [facility] ([facility]) [address] [place] [address] Hemoglobin (Bld) [Mass/Vol] 13.0 g/dL Normal 12.0-16.0 [facility] Comment on above: Performed By: #### 5 7021-8 #### SANTOSH BAI ([id number]) [facility] ([facility]) [address] [place] [address] MCH (RBC) [Entitic mass] 30.0 pg Normal 26.0-34.0 [facility] Comment on above: Performed By: #### 5 7021-8 #### SANTOSH BAI ([id number]) [facility] ([facility]) [address] [place] [address] MCHC (RBC) [Mass/Vol] 31.3 g/dL Low 32.0-36.0 [facility] Comment on above: Performed By: #### 5 7021-8 #### SANTOSH BAI ([id number]) [facility] ([facility]) [address] [place] [address] MCV (RBC) [Entitic vol] 96 fL Normal 80-100 [facility] Comment on above: Performed By: #### 5 7021-8 #### SANTOSH BAI ([id number]) [facility] ([facility]) [address] [place] [phone] Nucleated RBC/100 WBC (Bld) [Ratio] 0.0 /100 WBCs Normal 0.0-0.0 [facility] Comment on above: Performed By: #### 5 7021-8 #### SANTOSH BAI ([id number]) [facility] ([facility]) [address] [place] [phone] Platelets (Bld) [#/Vol] 268 x10*3/uL Normal 150-450 [facility] Comment on above: Performed By: #### 5 7021-8 #### SANTOSH BAI ([id number]) [facility] ([facility]) [address] [place] [address] RBC (Bld) [#/Vol] 4.34 x10*6/uL Normal 4.00-5.20 [facility] Comment on above: Performed By: #### 5 7021-8 #### SANTOSH BAI ([id number]) [facility] ([facility]) [address] [place] [address] WBC (Bld) [#/Vol] 9.7 x10*3/uL Normal 4.4-11.3 [facility] Comment on above: Performed By: #### 5 7021-8 #### SANTOSH BAI ([id number]) [facility] ([facility] [place]) [address] [place] [address] XR LUMBAR SPINE 4+ VIEWS WIT H FLEXION EXTENSIONon 01-02-2024 XR LUMBAR SPINE 4+ VIEWS WITH FLEXION EXTENSION Interpreted By: Danielle Orozco, STUDY: XR LUMBAR SPINE 4+ VIEWS WITH FLEXION EXTENSION; 01/02/2024 8:59 am INDICATION: Signs/Symptoms:L4-L5 lumbar stenosis with concern for spondylolisthesis. COMPARISON: None. ACCESSION NUMBER(S): [id number] ORDERING CLINICIAN: ANGELA GONZALEZ FINDINGS: Multiple views of the lumbar spine are obtained. Alignment is intact. The vertebral body heights are preserved. Disc space loss at L4/L5 with endplate sclerosis and osteophytes . No acute fracture-dislocation. IMPRESSION: Discogenic degenerative changes as described. Signed by: Danielle Orozco 01/02/2024 9:15 AM Dictation workstation: [id number] [facility] XR Lumbar spine Views W flex ion and W extensionon 01-02-2024 Discogenic degenerat alexandre changes as described. Signed by: Danielle Orozco 01/02/2024 9:15 AM Dictation workstation: [id number] [facility] Interpreted By: Danielle Carey, STUDY: XR LUMBAR SPINE 4+ VIEWS WITH FLEXION EXTENSION; 01/02/2024 8:59 am INDICATION: Signs/Symptoms:L4-L5 lumbar stenosis with concern for spondylolisthesis. COMPARISON: None. ACCESSION NUMBER(S): [id number] ORDERING CLINICIAN: ANGELA GONZALEZ FINDINGS: Multiple views of the lumbar spine are obtained. Alignment is intact. The vertebral body heights are preserved. Disc space loss at L4/L5 with endplate sclerosis and osteophytes . No acute fracture-dislocation. [facility] Danielle Orozco MD - 01/02/2024 Interpreted By: Danielle Orozco, STUDY: XR LUMBAR SPINE 4+ VIEWS WITH FLEXION EXTENSION; 01/02/2024 8:59 am INDICATION: Signs/Symptoms:L4-L5 lumbar stenosis with concern for spondylolisthesis. COMPARISON: None. ACCESSION NUMBER(S): [id number] ORDERING CLINICIAN: ANGELA GONZALEZ FINDINGS: Multiple views of the lumbar spine are obtained. Alignment is intact. The vertebral body heights are preserved. Disc space loss at L4/L5 with endplate sclerosis and osteophytes . No acute fracture-dislocation. IMPRESSION: Discogenic degenerative changes as described. Signed by: Danielle Orozco 01/02/2024 9:15 AM Dictation workstation: [id number] [facility] Work Phone: Radiology Study observation (narrative) [facility] Work Phone: XR Lumbar spine Views W flex ion and W extensionOrdered By: Danielle Orozco on 01-02-2024 [facility] Work Phone: C reactive proteinon 024 CRP [Mass/Vol] 0.36 mg/dL Normal <1.00 [facility] Comment on above: Performed By: #### 1 988-5 #### SANTOSH RICHARDSON ([id number]) [facility] ([facility]) [address] [place] [address] C-Reactive Proteinon 024 CRP [Mass/Vol] 0.36 mg/dL NINF - 1.00 mg/dL [facility] CBC W Auto Differential pane l (Bld)on 01-01-2024 Basophils (Bld) [#/Vol] 0.01 10*3/uL [facility] Basophils/100 WBC (Bld) 0.1 % 0.0 - 2.0 % [facility] Eosinophils (Bld) [#/Vol] 0.22 10*3/uL [facility] Eosinophils/100 WBC (Bld) 2.5 % 0.0 - 6.0 % [facility] Erythrocyte distribution width (RBC) [Ratio] 13.5 % 11.5 - 14.5 % [facility] Hematocrit (Bld) [Volume fraction] 42.0 % 36.0 - 46.0 % [facility] Hemoglobin (Bld) [Mass/Vol] 13.2 g/dL 12.0 - 16.0 g/dL [facility] Immature granulocytes (Bld) [#/Vol] 0.02 10*3/uL [facility] Immature granulocytes/100 WBC (Bld) 0.2 % 0.0 - 0.9 % [facility] Comment on above: Immature Granulocyte Count (IG) includes promyelocytes, myelocytes and metamyelocytes but does not include bands. Percent differential counts (%) should be interpreted in the context of the absolute cell counts (cells/UL). Interpretation and review of laboratory results Abnormal [facility] Lymphocytes (Bld) [#/Vol] 3.44 10*3/uL [facility] Lymphocytes/100 WBC (Bld) 38.9 % 13.0 - 44.0 % [facility] MCH (RBC) [Entitic mass] 30.2 pg 26.0 - 34.0 pg [facility] MCHC (RBC) [Mass/Vol] 31.4 g/dL Low 32.0 - 36.0 g/dL [facility] MCV (RBC) [Entitic vol] 96 fL 80 - 100 fL [facility] Monocytes (Bld) [#/Vol] 0.75 10*3/uL [facility] Monocytes/100 WBC (Bld) 8.5 % 2.0 - 10.0 % [facility] Neutrophils (Bld) [#/Vol] 4.41 10*3/uL [facility] Comment on above: Percent differential counts (%) should be interpreted in the context of the absolute cell counts (cells/uL). Neutrophils/100 WBC (Bld) 49.8 % 40.0 - 80.0 % [facility] Nucleated RBC/100 WBC (Bld) [Ratio] 0.0 % [facility] Platelets (Bld) [#/Vol] 317 10*3/uL [facility] RBC (Bld) [#/Vol] 4.37 10*6/uL [facility] WBC (Bld) [#/Vol] 8.9 10*3/uL [facility] Basophils (Bld) [#/Vol] 0.01 x10*3/uL Normal 0.00-0.10 [facility] Comment on above: Performed By: #### 5 7021-8 #### SANTOSH BAI ([id number]) [facility] ([facility]) [address] [place] [address] Basophils/100 WBC (Bld) 0.1 % Normal 0.0-2.0 [facility] Comment on above: Performed By: #### 5 7021-8 #### SANTOSH BAI ([id number]) [facility] ([facility]) [address] [place] [address] Eosinophils (Bld) [#/Vol] 0.22 x10*3/uL Normal 0.00-0.70 [facility] Comment on above: Performed By: #### 5 7021-8 #### SANTOSH BAI ([id number]) [facility] ([facility]) [address] [place] [address] Eosinophils/100 WBC (Bld) 2.5 % Normal 0.0-6.0 [facility] Comment on above: Performed By: #### 5 7021-8 #### SANTOSH BAI ([id number]) [facility] ([facility]) [address] [place] [address] Erythrocyte distribution width (RBC) [Ratio] 13.5 % Normal 11.5-14.5 [facility] Comment on above: Performed By: #### 5 7021-8 #### SANTOSH BAI ([id number]) [facility] ([facility]) [address] [place] [address] Hematocrit (Bld) [Volume fraction] 42.0 % Normal 36.0-46.0 [facility] Comment on above: Performed By: #### 5 7021-8 #### SANTOSH BAI ([id number]) [facility] ([facility]) [address] [place] [address] Hemoglobin (Bld) [Mass/Vol] 13.2 g/dL Normal 12.0-16.0 [facility] Comment on above: Performed By: #### 5 7021-8 #### SANTOSH BAI ([id number]) [facility] ([facility]) [address] [place] [address] Immature granulocytes (Bld) [#/Vol] 0.02 x10*3/uL Normal 0.00-0.70 [facility] Comment on above: Performed By: #### 5 7021-8 #### SANTOSH BAI ([id number]) [facility] ([facility]) [address] [place] [phone] Immature granulocytes/100 WBC (Bld) 0.2 % Normal 0.0-0.9 [facility] Comment on above: Result Comment: Aspen ture Granulocyte Count (IG) includes promyelocytes, myelocytes and metamyelocytes but does not include bands. Percent differential counts (%) should be interpreted in the context of the absolute cell counts (cells/UL). Performed By: #### 5 7021-8 #### SANTOSH BAI ([id number]) [facility] ([facility]) [address] [place] [phone] Lymphocytes (Bld) [#/Vol] 3.44 x10*3/uL Normal 1.20-4.80 [facility] Comment on above: Performed By: #### 5 7021-8 #### SANTOSH BAI ([id number]) [facility] ([facility]) [address] [place] [address] Lymphocytes/100 WBC (Bld) 38.9 % Normal 13.0-44.0 [facility] Comment on above: Performed By: #### 5 7021-8 #### SANTOSH BAI ([id number]) [facility] ([facility]) [address] [place] [address] MCH (RBC) [Entitic mass] 30.2 pg Normal 26.0-34.0 [facility] Comment on above: Performed By: #### 5 7021-8 #### SANTOSH BAI ([id number]) [facility] ([facility]) [address] [place] [address] MCHC (RBC) [Mass/Vol] 31.4 g/dL Low 32.0-36.0 [facility] Comment on above: Performed By: #### 5 7021-8 #### SANTOSH BAI ([id number]) [facility] ([facility]) [address] [place] [phone] MCV (RBC) [Entitic vol] 96 fL Normal 80-100 [facility] Comment on above: Performed By: #### 5 7021-8 #### SANTOSH BAI ([id number]) [facility] ([facility]) [address] [place] [address] Monocytes (Bld) [#/Vol] 0.75 x10*3/uL Normal 0.10-1.00 [facility] Comment on above: Performed By: #### 5 7021-8 #### SANTOSH BAI ([id number]) [facility] ([facility]) [address] [place] [address] Monocytes/100 WBC (Bld) 8.5 % Normal 2.0-10.0 [facility] Comment on above: Performed By: #### 5 7021-8 #### SANTOSH BAI ([id number]) [facility] ([facility] [place]) [address] [place] [address] Neutrophils (Bld) [#/Vol] 4.41 x10*3/uL Normal 1.20-7.70 [facility] Comment on above: Result Comment: Perc ent differential counts (%) should be interpreted in the context of the absolute cell counts (cells/uL). Performed By: #### 5 7021-8 #### SANTOSH BAI ([id number]) [facility] ([facility] [place]) [address] [place] [address] Neutrophils/100 WBC (Bld) 49.8 % Normal 40.0-80.0 [facility] Comment on above: Performed By: #### 5 7021-8 #### SANTOSH BAI ([id number]) [facility] ([facility] [place]) [address] [place] [address] Nucleated RBC/100 WBC (Bld) [Ratio] 0.0 /100 WBCs Normal 0.0-0.0 [facility] Comment on above: Performed By: #### 5 7021-8 #### SANTOSH BAI ([id number]) [facility] ([facility] [place]) [address] [place] [address] Platelets (Bld) [#/Vol] 317 x10*3/uL Normal 150-450 [facility] Comment on above: Performed By: #### 5 7021-8 #### SANTOSH BAI ([id number]) [facility] ([facility] [place]) [address] [place] [address] RBC (Bld) [#/Vol] 4.37 x10*6/uL Normal 4.00-5.20 [facility] Comment on above: Performed By: #### 5 7021-8 #### SANTOSH BAI ([id number]) [facility] ([facility] [place]) [address] [place] [address] WBC (Bld) [#/Vol] 8.9 x10*3/uL Normal 4.4-11.3 [facility] Comment on above: Performed By: #### 5 7021-8 #### SANTOSH BAI ([id number]) [facility] ([facility] [place]) [address] [place] [address] CRP [Mass/Vol]on 01-01-2024 Interpretation and review of laboratory results Normal [facility] Comprehensive metabolic 2000 panelon 01-01-2024 Albumin BCP dye [Mass/Vol] 4.1 g/dL 3.4 - 5.0 g/dL [facility] ALP [Catalytic activity/Vol] 75 U/L 33 - 110 U/L [facility] ALT With P-5'-P [Catalytic activity/Vol] 19 U/L 7 - 45 U/L [facility] Comment on above: Patients treated wit h Sulfasalazine may generate falsely decreased results for ALT. Anion gap [Moles/Vol] 13 mmol/L 10 - 2 0 mmol/L [facility] AST With P-5'-P [Catalytic activity/Vol] 25 U/L 9 - 39 U/L [facility] Comment on above: MILD HEMOLYSIS DETEC LISA. The result may be falsely elevated due to hemolysis or other interferents. Clinical correlation is recommended. Repeat testing may be considered. Bilirubin [Mass/Vol] 0.2 mg/dL 0.0 - 1 .2 mg/dL [facility] Calcium [Mass/Vol] 8.2 mg/dL Low 8.6 - 10. 3 mg/dL [facility] Chloride [Moles/Vol] 106 mmol/L 98 - 10 7 mmol/L [facility] CO2 [Moles/Vol] 25 mmol/L 21 - 32 mmol/L [facility] Creatinine [Mass/Vol] 0.71 mg/dL 0.50 - 1.05 mg/dL [facility] eGFR - PINF [facility] Comment on above: Calculations of juan antonio mated GFR are performed using the 2020 CKD-EPI Study Refit equation without the race variable for the IDMS-Traceable creatinine methods. https://jasn.asnjournals.org/content/early//ASN.41264 99613 Glucose [Mass/Vol] 101 mg/dL High 74 - 99 mg/dL [facility] Interpretation and review of laboratory results Abnormal [facility] Potassium [Moles/Vol] 4.8 mmol/L 3.5 - 5.3 mmol/L [facility] Comment on above: MILD HEMOLYSIS DETEC LISA. The result may be falsely elevated due to hemolysis or other interferents. Clinical correlation is recommended. Repeat testing may be considered. Protein [Mass/Vol] 6.8 g/dL 6.4 - 8.2 g/dL [facility] Sodium [Moles/Vol] 139 mmol/L 136 - 145 mmol/L [facility] Urea nitrogen [Mass/Vol] 20 mg/dL 6 - 23 mg/dL [facility] Albumin BCP dye [Mass/Vol] 4.1 g/dL Normal 3.4-5.0 [facility] Comment on above: Performed By: #### 5 7021-8 #### SANTOSH BAI ([id number]) [facility] ([facility] [place]) [address] [place] [address] ALP [Catalytic activity/Vol] 75 U/L Normal 33-110 [facility] Comment on above: Performed By: #### 5 7021-8 #### SANTOSH BAI ([id number]) [facility] ([facility] [place]) [address] [place] [address] ALT With P-5'-P [Catalytic activity/Vol] 19 U/L Normal 7-45 [facility] Comment on above: Result Comment: Katia ents treated with Sulfasalazine may generate falsely decreased results for ALT. Performed By: #### 5 7021-8 #### SANTOSH BAI ([id number]) [facility] ([facility] [place]) [address] [place] [address] Anion gap [Moles/Vol] 13 mmol/L Normal 10-20 [facility] Comment on above: Performed By: #### 5 7021-8 #### SANTOSH BAI ([id number]) [facility] ([facility] [place]) [address] [place] [id number] AST With P-5'-P [Catalytic activity/Vol] 25 U/L Normal 9-39 [facility] Comment on above: Result Comment: MILD HEMOLYSIS DETECTED. The result may be falsely elevated due to hemolysis or other interferents. Clinical correlation is recommended. Repeat testing may be considered. Performed By: #### 5 7021-8 #### SANTOSH BAI ([id number]) [facility] ([facility] [place]) [address] [place] [phone] Bilirubin [Mass/Vol] 0.2 mg/dL Normal 0.0-1.2 [facility] Comment on above: Performed By: #### 5 7021-8 #### SANTOSH BAI ([id number]) [facility] ([facility] [place]) [address] [place] [phone] Calcium [Mass/Vol] 8.2 mg/dL Low 8.6-10.3 [facility] Comment on above: Performed By: #### 5 7021-8 #### SANTOSH BAI ([id number]) [facility] ([facility] [place]) [address] [place] [address] Chloride [Moles/Vol] 106 mmol/L Normal 98-107 [facility] Comment on above: Performed By: #### 5 7021-8 #### SANTOSH BAI ([id number]) [facility] ([facility] [place]) [address] [place] [address] CO2 [Moles/Vol] 25 mmol/L Normal 21-32 [facility] Comment on above: Performed By: #### 5 7021-8 #### SANTOSH BAI ([id number]) [facility] ([facility] [place]) [address] [place] [address] Creatinine [Mass/Vol] 0.71 mg/dL Normal 0.50-1.05 [facility] Comment on above: Performed By: #### 5 7021-8 #### SANTOSH BAI ([id number]) [facility] ([facility] [place]) [address] [place] [address] GFR/1.73 sq M.predicted MDRD (S/P/Bld) [Vol rate/Area] mL/min/{1.73_m2} Normal >60 [facility] Comment on above: Result Comment: Calc ulations of estimated GFR are performed using the 2020 CKD-EPI Study Refit equation without the race variable for the IDMS-Traceable creatinine methods. https://jasn.asnjournals.org/content//ASN.28422 74934 Performed By: #### 5 7021-8 #### SANTOSH BAI ([id number]) [facility] ([facility] [place]) [address] [place] [address] Glucose [Mass/Vol] 101 mg/dL High 74-99 [facility] Comment on above: Performed By: #### 5 7021-8 #### SANTOSH BAI ([id number]) [facility] ([facility] [place]) [address] [place] [address] Potassium [Moles/Vol] 4.8 mmol/L Normal 3.5-5.3 [facility] Comment on above: Result Comment: MILD HEMOLYSIS DETECTED. The result may be falsely elevated due to hemolysis or other interferents. Clinical correlation is recommended. Repeat testing may be considered. Performed By: #### 5 7021-8 #### SANTOSH BAI ([id number]) [facility] ([facility] [place]) [address] [place] [address] Protein [Mass/Vol] 6.8 g/dL Normal 6.4-8.2 [facility] Comment on above: Performed By: #### 5 7021-8 #### SANTOSH BAI ([id number]) [facility] ([facility] [place]) [address] [place] [address] Sodium [Moles/Vol] 139 mmol/L Normal 136-145 [facility] Comment on above: Performed By: #### 5 7021-8 #### SANTOSH BAI ([id number]) [facility] ([facility] [place]) [address] [place] [address] Urea nitrogen [Mass/Vol] 20 mg/dL Normal 6-23 [facility] Comment on above: Performed By: #### 5 7021-8 #### SANTOSH BAI ([id number]) [facility] ([facility] [place]) [address] [place] [address] ESR Westergren method (Bld) [Velocity]on 01-01-2024 ESR (Bld) [Velocity] 17 mm/h 0 - 20 mm/h [facility] Interpretation and review of laboratory results Normal [facility] ESR (Bld) [Velocity] 17 mm/h Normal 0-20 [facility] Comment on above: Performed By: #### 4 537-7 #### SANTOSH BAI ([id number]) [facility] ([facility] [place]) [address] [place] [address] MR LUMBAR SPINE W AND WO IV CONTRASTon 01-01-2024 MR LUMBAR SPINE W AND WO IV CONTRAST Interpreted By: Claudio Balderas, STUDY: MR LUMBAR SPINE W AND WO IV CONTRAST INDICATION: Signs/Symptoms:Paresthe teo and weakness of the left lower extremity COMPARISON: Lumbar spine MRI 12/18/2023 ACCESSION NUMBER(S): [id number] ORDERING CLINICIAN: MICHELE LION TECHNIQUE: Multiplanar multisequence [...] Claudio Balderas 01/01/2024 5:46 PM Dictation workstation: [id number] [facility] Comment on above: Order Comment: Recen t MRI completed on December 19. I spoke [...] COMPARISON: Lumbar spine MRI 12/18/2023 ACCESSION NUMBER(S): [id number] ORDERING CLINICIAN: MICHELE LION TECHNIQUE: Multiplanar multisequence [...] COMPARISON: Lumbar spine MRI 12/18/2023 ACCESSION NUMBER(S): [id number] ORDERING CLINICIAN: MICHELE LION TECHNIQUE: Multiplanar multisequence [...] Claudio Balderas 01/01/2024 5:46 PM Dictation workstation: [id number] [facility] Work Phone: Radiology Study observation (narrative) [facility] Work Phone: MR Lumbar spine WO and W con trast IVOrdered By: Claudio Balderas on 01-01-2024 [facility] Work Phone: No Panel Informationon 12-31 [facility] ED Prov Noteon 12-29-2023 ED Prov Note ED PROVIDER NOTE [facility] EM[facility]GENCY [facility] NAME: Jerad Tracy AGE: 48 y.o. : 1975 VISIT DATE: 12/29/2023 CSN: [id number] PCP: No, Physician Chief Complaint Patient presents [...] a history of back issues, follows with data analytics specialist in her hometown of [facility]. History reviewed. No pertinent past medical [...] Resource Strain: Low Risk (11/17/2023) Received from [facility] Overall Financial Resource Strain (CARDIA) Difficulty of Paying Living Expenses: Not hard at all Food Insecurity: Patient Declined (10/11/2023) Received from [facility] Hunger Vital Sign Worried About Running Out of Food in the Last Year: Patient declined Ran Out of Food in the Last Year: Patient declined Transportation Needs: No Transportation Needs (11/17/2023) Received from [facility] PRAPARE - Transportation Lack of Transportation (Medical): No Lack of Transportation (Non-Medical): No Physical Activity: Patient Declined (10/11/2023) Received from [facility] Exercise Vital Sign Days of Exercise per Week: Patient declined Minutes of Exercise per Session: Patient declined Stress: Patient Declined (10/11/2023) Received from [facility] [employer] [employer] Occupational [employer] - Occupational Stress Questionnaire Feeling of Stress : Patient declined Social Connections: Patient Declined (10/11/2023) Received from [facility] Social Connection and Isolation Panel [NHANES] Frequency of Communication with Friends and Family: Patient declined Frequency of Social Gatherings with Friends and Family: Patient declined Attends [employer] Services: Patient declined Active Member of Clubs or Organizations: Patient declined Attends Club or Organization Meetings: Patient declined Marital Status: Patient declined Housing Stability: Low Risk (11/17/2023) Received from [facility] Housing Stability Vital Sign Unable to [...] appropriately. Patien (more content not included)... Normal [facility] ED Note-Physicianon 12-27-19 ED Note-Physician ED [...] day(s), # 10 cap(s), Refills(s) 0, Pharmacy: [facility], 160, cm, 12/26/23 18:17:00 EDT, Height/Length Dosing, 114.8, kg, 12/26/23 18:17:00 EDT, Weight Dosing tizanidine, 2 mg = 1 tab(s), Oral, q8hr, X 7 day(s), # 21 tab(s), Refills(s) 0, Pharmacy: [facility], 160, cm, 12/26/23 18:17:00 EDT, Height/Length [...] Rosas In 3 days 12/29/2023 [facility]T [facility] [address] [address]- Business (1) Additional Instructions: Patient Educa (more content not included)... Normal [facility] Comment on above: Result Comment: [...] soft tissues are normal in appearance. IMPRESSION: Iblt-[id number] degenerative changes without any high-grade canal stenosis Final Dictated by: Griffin Garnett MD Dictated DT/TM: 12/26/23 12:15 Signed (Electronic Signature): Griffin Garnett MD 12/26/23 12:23 p Technologist: Oanh TRAN [facility] ED Clinical Summaryon 2023 ED Clinical Summary ED Clinical Summary [address] [address] ED Clinical Summary Person Information Name: JERAD TRACY [place] Age: 48 Years : 1975 Sex: Female Language: Citizen Of [place] PCP: Cheyanne Rincon Marital Status: Visit Id: [...] 22:27:28 12/26/2023 22:27:28 12/26/2023 22:27:28 ADDRESS: [address] [facility] [id number] PHYS DOC NOTES: MEDICAL INFORMATION: Prescriptions Given: New Medications [facility], [address] [place], [place] [id number], [phone] oxycodone (oxyCODONE 5 mg Cap) 1 Capsules [...] Back Pain, Adult Follow up: With: Address: Marty: Cheyanne Post, [address], [address] [address] [employer] (1) In 3 days 12/29/2023 DIAGNOSIS: Low back pain; Lumbar strain; S/P lumbar spine operation Normal [facility] ED Clinical Summary [facility] - Emergency Department [address] [place] [address] ED Clinical Summary PERSON INFORMATION Name: JERAD TRACY Age: 48 Years Sex: FEMALE : 1975 MRN: Acct#: Visit Reason: Back pain; Fall; FALL-LOWER BACK PAIN Arrival: 12/26/2023 11:01:02 Discharge: 12/26/2023 12:37:00 LOS: 000 01:36 Check In: 12/26/2023 11:01:02 Checkout:12/26/2023 12:37:00 Address: [address] [place] [address] PCP: Cheyanne Mckeon PROVIDER INFORMATION Provider Role Assigned Unassigned Raj Ayers MD ED Provider 12/26/2023 11:01:53 Niki Reyes FARMWORK[employer] MACHINE Nurse 12/26/2023 11:03:24 VITALS INFORMATION Vital Sign [...] EDUCATION INFORMATION Instructions: Lumbar Sprain; Back Exercises, [id number] Follow-Up: With: Address: When: Cheyanne Mckeon [address] [place] [address] [place] [address] Within 3 to 5 days DIAGNOSIS: 1:Fall; 2:Lumbar sprain Patient Understands: Yes - Patient/family/caregive r verbalizes understanding of instructions given Comment: [facility] ED Note-Nursingon 12-26-2023 ED Note-Nursing Pt ambulatory [...] Pt is A/Ox4 call light within reach [facility] ED Patient Summaryon 024 ED Patient Summary ED Patient Summary [address] [address] Patient Discharge Instructions Person Information Name: JERAD TRACY Age: 48 Years Arrival Date: 12/26/2023 18:03:46 Discharge Diagnosis: Low back pain; Lumbar strain; S/P lumbar spine operation Primary Care Physician: Cheyanne Rincon Provider Information Primary Provider: Elisa Sánchez DO [employer] Director:Manuel Naik PA-C The exam and treatment you received in the Emergency Department were for an urgent problem and are not intended as complete care. It is important that you follow up with a doctor, nurse practitioner, or physician?s dermatology physician assistant for ongoing care. If your symptoms [...] Follow-up Instructions: With: Address: When: Cheyanne Rosas [address] [place] [address] A, [place] [phone] Business (1) In 3 days 12/29/2023 In the event that this physician does not participate in your insurance network, please consult with your insurance company to find a nearby participating provider. Patient Education Materials: Acute Back Pain, Adult A MESSAGE TO ALL PATIENTS REGARDING OPIOIDS PRESCRIPTION OPIOIDS: WHAT YOU NEED TO KNOW Prescription opioids can be used to help relieve zilubsvo-lx-bjpphh pain and are often prescribed following a [...] from the Food and Drug Administration (www.fda.gov/Drugs/Reso Juan Miguelu). ? Visit www.cdc.gov/drugoverdos e to learn about the risks of opioids abuse and overdose. ? If you believe you may be struggling with addiction, tell your health technical healthcare consultant and ask for (more content not included)... Normal [facility] ED Patient Summary [facility] - Emergency Department [address] [place] [address] PATIENT DISCHARGE INSTRUCTIONS Patient Information Name: JERAD TRACY Age: 48 Years Date of : 1975 Reason For Visit: Back pain; Fall; FALL-LOWER BACK PAIN Arrival Time: 12/26/2023 11:01:02 Primary Care Physician: Cheyanne Mckeon Attending Physician: Raj Ayers MD Comment: Visit Diagnosis: Diagnoses This Visit Back pain ([id number]) Fall (W19.XXXA) Fall ([id number]) Lumbar sprain (S33.5XXA) The Pharmacy at [facility] is open Saturday through Saturday from [...] alcohol and/or drug addiction problems; contact the [facility] 15/10 Crisis Hotline -Text 0XIUA wh 837419. If you received any narcotics, sedation, or [...] sign any legal documents With: Address: When: Ralph HORVATHPilyCheyanne [address] [place], [place] [id number] Within 3 to 5 days Medication Information: The exam and treatment you received today in the [facility] Emergency Department were for an urgent problem and are not intended as complete care. It is important for you to follow up with a doctor, nurse practitioner, or physician?s dermatology physician assistant for ongoing care. If your symptoms [...] so we can reach you if necessary. [facility] Emergency Department has provided you with a complete list of medications post discharge. Please inform your records assistant/provider of your visit and for further instruction [...] involve tearin (more content not included)... Normal [facility] 12-24-2023 Anion gap [Moles/Vol] 8 mmol/L Normal 6-16 [facility] Comment on above: Performed By: #### 2 [id number] #### [facility] [address] [place] [address] Calcium [Mass/Vol] 8.6 mg/dL Low 8.9-11.1 [facility] Comment on above: Performed By: #### 2 455635 #### [facility] [address] [place] [address] Chloride [Moles/Vol] 108 mmol/L Normal 101-111 [facility] Comment on above: Performed By: #### 2 493109 #### [facility] [address] [place] [address] CO2 [Moles/Vol] 28 mmol/L Normal 21-31 [facility] Comment on above: Performed By: #### 2 209179 #### [facility] [address] [place] [address] Creatinine [Mass/Vol] 0.7 mg/dL Normal 0.5-1.3 [facility] Comment on above: Performed By: #### 2 065768 #### [facility] [address] [place] [address] Glucose [Mass/Vol] 85 mg/dL Normal 55-199 [facility] Comment on above: Performed By: #### 2 085550 #### [facility] [address] [place] [address] Potassium [Moles/Vol] 4.2 mmol/L Normal 3.5-5.3 [facility] Comment on above: Performed By: #### 2 126195 #### [facility] [address] [place] [address] Sodium [Moles/Vol] 140 mmol/L Normal 135-145 [facility] Comment on above: Performed By: #### 2 575595 #### [facility] [address] [place] [address] Urea nitrogen [Mass/Vol] 7 mg/dL Normal 5-21 [facility] Comment on above: Performed By: #### 2 854480 #### [facility] [address] [place] [address] Urea nitrogen/Creatinine [Mass ratio] 10 No Units Normal 10-20 [facility] Comment on above: Performed By: #### 2 491072 #### [facility] [address] [place] [address] CBC w/ Auto Diffon 4 Basophils/100 WBC (Bld) 0.4 % Normal 0.0-2.0 [facility] Comment on above: Performed By: #### 2 313706 #### [facility] [address] [place] [address] Basophils/Leukocytes Auto (Bld) [Pure # fraction] 0.0 E9/L Normal 0.0-0.2 [facility] Comment on above: Performed By: #### 2 647621 #### [facility] [address] [place] [address] Eosinophils (Bld) [#/Vol] 0.1 E9/L Normal 0.0-0.5 [facility] Comment on above: Performed By: #### 2 640895 #### [facility] [address] [place] [address] Eosinophils/100 WBC (Bld) 1.8 % Normal 0.0-8.0 [facility] Comment on above: Performed By: #### 2 369674 #### [facility] [address] [place] [address] Erythrocyte distribution width (RBC) [Ratio] 13.6 % Normal 10.9-14.2 [facility] Comment on above: Performed By: #### 2 236479 #### [facility] [address] [place] [address] Hematocrit (Bld) [Volume fraction] 39.1 % Normal 34.0-46.0 [facility] Comment on above: Performed By: #### 2 874403 #### [facility] [address] [place] [address] Hemoglobin (Bld) [Mass/Vol] 13.6 g/dL Normal 12.0-16.0 [facility] Comment on above: Performed By: #### 2 874637 #### [facility] [address] [place] [address] Lymphocytes (Bld) [#/Vol] 1.9 E9/L Normal 1.0-4.0 [facility] Comment on above: Performed By: #### 2 541252 #### [facility] [address] [place] [address] Lymphocytes/100 WBC (Bld) 23.2 % Normal 14.0-50.0 [facility] Comment on above: Performed By: #### 2 099949 #### [facility] [address] [place] [address] MCH (RBC) [Entitic mass] 31.9 pg Normal 27.0-34.0 [facility] Comment on above: Performed By: #### 2 499440 #### [facility] [address] [place] [address] MCHC (RBC) [Mass/Vol] 34.7 g/dL Normal 31.4-36.0 [facility] Comment on above: Performed By: #### 2 523603 #### [facility] [address] [place] [address] MCV (RBC) [Entitic vol] 91.9 fL Normal 80.0-100.0 [facility] Comment on above: Performed By: #### 2 926383 #### [facility] [address] [place] [address] Monocytes (Bld) [#/Vol] 0.5 E9/L Normal 0.2-1.0 [facility] Comment on above: Performed By: #### 2 002734 #### [facility] [address] [place] [address] Neutrophils (Bld) [#/Vol] 5.5 E9/L Normal 2.0-7.5 [facility] Comment on above: Performed By: #### 2 372037 #### [facility] [address] [place] [address] Neutrophils/100 WBC (Bld) 68.2 % Normal 36.0-75.0 [facility] Comment on above: Performed By: #### 2 380490 #### [facility] [address] [place] [address] Platelet 359.0 E9/L Normal 150.0-500.0 [facility] Comment on above: Performed By: #### 2 423204 #### [facility] [address] [place] [address] Platelet mean volume (Bld) [Entitic vol] 7.9 fL Normal 6.4-10.8 [facility] Comment on above: Performed By: #### 2 499140 #### [facility] [address] [place] [address] RBC (Bld) [#/Vol] 4.3 E12/L Normal 4.3-5.9 [facility] Comment on above: Performed By: #### 2 166400 #### [facility] [address] [place] [address] WBC corrected for nucl RBC Auto (Bld) [#/Vol] 8.1 E9/L Normal 4.0-11.0 [facility] Comment on above: Performed By: #### 2 626342 #### [facility] [address] [place] [address] CHEMISTRYOrdered By: SYSTEM SYSTEM on 12-24-2023 Albumin [...] 2023 ED Clinical Summary ED Clinical Summary [place] [id number] ED Clinical Summary Person Information Name: JERAD TRACY [place]ha/[place] Age: 48 Years : 1975 Sex: Female Language: Citizen Of [place] PCP: Cheyanne Rincon Marital Status: Visit Id: [...] 12/24/2023 17:00:04 12/24/2023 17:00:04 12/24/2023 17:00:04 ADDRESS: [address] [facility] [id number] PHYS DOC NOTES: MEDICAL INFORMATION: Prescriptions Given: New Medications [facility], [address] [place] [id number], [phone] dicyclomine (Bentyl 10 mg Cap) 2 Capsules [...] Refills: 1. fluticasone nasal (Flonase 0.05 mg/inh [place]) 2 Sprays Topical every day. each nostril. [...] Follow up: With: Address: When: Cheyanne Post, [facility] A, [address] [address] Business (1) In 3 days 12/27/2023 Comments: Make sure to follow-up with your liver doctor as discussed. Return to the emergency room if your pain gets worse, vomiting, fever or any new symptoms. DIAGNOSIS: 1:Right upper quadrant abdominal pain Normal [facility] ED Note-Physicianon 12-24-19 ED Note-Physician ED Note-Physician Basic Information Time Seen: Annette Watkins Balbina Bridger 12/24/2023 15:30 Chief Complaint c/o RUQ pain [...] and Complexity of Problems Differential Diagnosis: [] [facility] [place] Data External documents reviewed: [] My EKG [...] QID, # 20 cap(s), Refills(s) 0, Pharmacy: [facility], 160, cm, 12/24/23 14:30:00 EDT, Height/Length [...] [place]as In 3 days 12/27/2023 EDT 280 [facility] [address] [place] [id number] Business (1) Additional Instructions: Make sure to [...] Migraines Procedu (more content not included)... Normal [facility] Comment on above: Result Comment: Elec tronically Signed By: Balbina Bryant M.D.\.br\Date and Time Signed: 12/24/23 16:53 EDT ED Patient Summaryon 024 ED Patient Summary ED Patient Summary [address] [address] Patient Discharge Instructions Person Information Name: JERAD TRACY Age: 48 Years Arrival Date: 12/24/2023 14:05:12 Discharge Diagnosis: 1:Right upper quadrant abdominal pain Primary Care Physician: Cheyanne Rincon Provider Information Primary Provider: Balbina Bryant M.D. [employer] Director:None The exam and treatment you received in the Emergency Department were for an urgent problem and are not intended as complete care. It is important that you follow up with a doctor, nurse practitioner, or physician?s dermatology physician assistant for ongoing care. If your symptoms [...] Cheyanne Ralph [address], [address], [place] [id number] Business (1) In 3 days 12/27/2023 Comments: [...] opioids can be used to help relieve xzdlpatg-th-wubnrn pain and are often prescribed following a [...] of opi (more content not included)... Normal [facility] Extra Blueon 12-24-2023 Tube Collected Plasma Yes Invalid Interpretation Code [facility] Comment on above: Performed By: #### 1 [id number] ####[facility] [address] [place] [address] HEMATOLOGYOrdered By: SYSTEM SYSTEM on 12-24-2023 Basophils/100 [...] 12-24-2023 Albumin [Mass/Vol] 4.0 g/dL Normal 3.3-5.0 [facility] Comment on above: Performed By: #### 2 307184 #### [facility] [address] [place] [address] Albumin/Globulin (S) [Mass conc ratio] 1.3 Normal 1.1-2.2 [facility] Comment on above: Performed By: #### 2 857366 #### [facility] [address] [place] [address] ALP [Catalytic activity/Vol] 70 Int._Unit/L Normal 21-98 [facility] Comment on above: Performed By: #### 2 [id number] #### [facility] [address] [place] [address] ALT No additional P-5'-P [Catalytic activity/Vol] 20 Int._Unit/L Normal 6-46 [facility] Comment on above: Performed By: #### 2 455484 #### [facility] [address] [place] [address] AST [Catalytic activity/Vol] 21 Int._Unit/L Normal 5-43 [facility] Comment on above: Performed By: #### 2 748095 #### [facility] [address] [place] [address] Bilirubin [Mass/Vol] 0.5 mg/dL Normal 0.0-1.1 [facility] Comment on above: Performed By: #### 2 321651 #### [facility] [address] [place] [address] Bilirubin.direct [Mass/Vol] 0.1 mg/dL Normal 0.0-0.4 [facility] Comment on above: Performed By: #### 2 056091 #### [facility] [address] [place] [address] Bilirubin.indirect [Mass or moles/Vol] 0.4 mg/dL Normal 0.1-0.9 [facility] Comment on above: Performed By: #### 2 963695 #### [facility] [address] [place] [address] Globulin (S) [Mass/Vol] 3.0 g/dL Normal 1.4-4.0 [facility] Comment on above: Performed By: #### 2 355914 #### [facility] [address] [place] [address] Protein [Mass/Vol] 7.0 g/dL Normal 6.0-7.8 [facility] Comment on above: Performed By: #### 2 308525 #### [facility] [address] [place] [address] Lipase Levelon 12-24-2023 Lipase [Catalytic activity/Vol] 18 U/L Normal 13-58 [facility] Comment on above: Performed By: #### 2 267008 #### [facility] [address] [place] [address] UA with Cult Rflxon 12-24-19 24 Bilirubin Ql (U) Negative Normal Negative [facility] Comment on above: Performed By: #### 4 [id number] #### [facility] [address] [place] [address] Clarity (U) Clear Normal Clear [facility] Comment on above: Performed By: #### 4 [id number] #### [facility] [address] [place] [address] Color (U) Colorless Abnormal Yellow [facility] Comment on above: Result Comment: Micr oscopic readings are only performed on those samples that meet specific criteria set forth by [facility]. Performed By: #### 4 [id number] #### [facility] [address] [place] [address] Glucose Ql (U) Negative Normal Negative [facility] Comment on above: Performed By: #### 4 [id number] #### [facility] [address] [place] [address] Hemoglobin Auto test strip (U) [Mass/Vol] Negative Normal Negative [facility] Comment on above: Performed By: #### 4 [id number] #### [facility] [address] [place] [address] Ketones Auto test strip Ql (U) Negative Normal Negative [facility] Comment on above: Performed By: #### 4 [id number] #### [facility] [address] [place] [address] Leukocyte esterase Auto test strip Ql (U) Negative Normal Negative [facility] Comment on above: Performed By: #### 4 [id number] #### [facility] [address] [place] [address] Nitrite Auto test strip Ql (U) Negative Normal Negative [facility] Comment on above: Performed By: #### 4 [id number] #### [facility] [address] [place] [address] pH (U) 7.5 [pH] Invalid Interpretation Code 5.0-9.0 [facility] Comment on above: Performed By: #### 4 [id number] #### [facility] [address] [place], [place] [address] Protein Ql (U) Negative Normal Negative [facility] Comment on above: Performed By: #### 4 [id number] #### [facility] [address] [place] [address] Specific gravity (U) [Rel density] 1.008 Invalid Interpretation Code 1.005-1.030 [facility] Comment on above: Performed By: #### 4 [id number] #### [facility] [address] [place], [place] [address] Urobilinogen (U) [Mass/Vol] Negative Normal Negative [facility] Comment on above: Performed By: #### 4 [id number] #### [facility] [address] [place], [place] [address] Type of Urine collection method Clean Catch Normal [facility] Comment on above: Performed By: #### 4 [id number] #### [facility] [address] [place] [address] URINALYSISOrdered By: SYSTEM SYSTEM on 12-24-2023 Bilirubin Ql (U) Negative Normal Negativemg/ d L [facility] UA Auto SS Clarity (U) Clear (12/24/23 2:48 PM) Normal Clear [facility] UA Auto SS Color (U) Colorless 1 *ABN* (12/24/23 2:48 PM) Invalid Interpretation Code Yellow [facility] Auto SS Comment on above: Interpretive Data: M icroscopic readings are only performed on those samples that meet specific criteria set forth by [facility]. Glucose Ql (U) Negative Normal Negativemg/d [...] [facility] UA Auto SS Urobilinogen (U) [Mass/Vol] Negative Normal Negativemg/d L [facility] UA Auto SS URINALYSISOrdered By: Deepa Mccormack on 12-24-2023 UA Spec Desc Clean Catch (12/24/23 2:48 PM) Normal [facility] UA Auto SS eGFRon 12-24-2023 eGFR 107 mL/min/1.73 m2 Normal >=59 [facility] Comment on above: Performed By: #### 1 [id number] #### [facility] [address] [place] [address] Hpisy-7-Scplwgdifdgpf 2023 AFP [Mass/Vol] 4 ng/mL Normal 0-9 [facility] Comment on above: Order Comment: AFP t esting is performed by chemiluminescent immunoassay using the Siemens Machine Safety ManangementllInformous. Values obtained with different analyte methods cannot be used interchangeably. This test can be used as an adjunct in the diagnosis and monitoring of AFP-producing tumors, including non-seminomatous germ cell tumors and hepatocellular carcinomas. Performed By: #### 1 834-1 ####JOLENE Cantu ([id number])[facility] ([facility])[address] [place] [address] Bilirubin.glucuronidated+Kenan irubin.albumin boundon 12-23-2023 Bilirubin.direct [Mass/Vol] 0.1 mg/dL Normal 0.0-0.3 [facility] Comment on above: Performed By: #### 1 968-7 ####GIOVANNI BURNETT ([id number])[facility] ([facility])[address] [place] [address] Coagulation tissue factor in ducedon 12-23-2023 PT Coag (PPP) [Time] 11.0 s Normal 9.8-12.8 [facility] Comment on above: Performed By: #### 5 902-2 ####GIOVANNI BURNETT ([id number])[facility] ([facility])[address] [place] [address] Comprehensive metabolic 2000 panelon 12-23-2023 Albumin BCP dye [Mass/Vol] 4.0 g/dL Normal 3.4-5.0 [facility] Comment on above: Performed By: #### 2 4323-8 ####GIOVANNI BURNETT ([id number])[facility] ([facility])[address] [place] [address] ALP [Catalytic activity/Vol] 79 U/L Normal 33-110 [facility] Comment on above: Performed By: #### 2 4323-8 ####GIOVANNI BURNETT ([id number])[facility] ([facility])[address] [place] [address] ALT With P-5'-P [Catalytic activity/Vol] 19 U/L Normal 7-45 [facility] Comment on above: Result Comment: Katia ents treated with Sulfasalazine may generate falsely decreased results for ALT. Performed By: #### 2 4323-8 ####GIOVANNI BURNETT ([id number])[facility] ([facility])[address] [place] [address] Anion gap [Moles/Vol] 11 mmol/L Normal 10-20 [facility] Comment on above: Performed By: #### 2 4323-8 ####GIOVANNI BURNETT ([id number])[facility] ([facility])[address] [place] [address] AST With P-5'-P [Catalytic activity/Vol] 20 U/L Normal 9-39 [facility] Comment on above: Performed By: #### 2 432-8 ####GIOVANNI BURNETT ([id number])[facility] ([facility])[address] [place] [address] Bilirubin [Mass/Vol] 0.2 mg/dL Normal 0.0-1.2 [facility] Comment on above: Performed By: #### 2 4322-8 ####GIOVANNI BURNETT ([id number])[facility] ([facility])[address] [place] [address] Calcium [Mass/Vol] 8.5 mg/dL Low 8.6-10.3 [facility] Comment on above: Performed By: #### 2 4322-8 ####GIOVANNI BURNETT ([id number])[facility] ([facility])[address] [place] [address] Chloride [Moles/Vol] 105 mmol/L Normal 98-107 [facility] Comment on above: Performed By: #### 2 432-8 ####GIOVANNI BURNETT ([id number])[facility] ([facility])[address] [place] [address] CO2 [Moles/Vol] 28 mmol/L Normal 21-32 [facility] Comment on above: Performed By: #### 2 4323-8 ####GIOVANNI BURNETT ([id number])[facility] ([facility])[address] [place] [address] Creatinine [Mass/Vol] 0.83 mg/dL Normal 0.50-1.05 [facility] Comment on above: Performed By: #### 2 4322-8 ####GIOVANNI BURNETT ([id number])[facility] ([facility])[address] [place] [address] Glomerular filtration rate/1.73 sq M.predicted 88 mL/min/1.73m*2 Normal >60 [facility] Comment on above: Result Comment: Calc ulations of estimated GFR are performed using the 2021 CKD-EPI Study Refit equation without the race variable for the IDMS-Traceable creatinine methods.https://jasn.asnjournals.org/content//A SN.1902610801 Performed By: #### 2 4323-8 ####GIOVANNI BURNETT ([id number])[facility] ([facility])[address] [place] [address] Glucose [Mass/Vol] 87 mg/dL Normal 74-99 [facility] Comment on above: Performed By: #### 2 4323-8 ####GIOVANNI BURNETT ([id number])[facility] ([facility])[address] [place] [address] Potassium [Moles/Vol] 4.6 mmol/L Normal 3.5-5.3 [facility] Comment on above: Performed By: #### 2 4323-8 ####GIOVANNI BURNETT ([id number])[facility] ([facility])[address] [place] [address] Protein [Mass/Vol] 6.3 g/dL Low 6.4-8.2 [facility] Comment on above: Performed By: #### 2 4323-8 ####GIOVANNI BURNETT ([id number])[facility] ([facility])[address] [place] [address] Sodium [Moles/Vol] 139 mmol/L Normal 136-145 [facility] Comment on above: Performed By: #### 2 4323-8 ####GIOVANNI BURNETT ([id number])[facility] ([facility])[address] [place] [address] Urea nitrogen [Mass/Vol] 10 mg/dL Normal 6-23 [facility] Comment on above: Performed By: #### 2 4323-8 ####GIOVANNI BURNETT ([id number])[facility] ([facility])[address] [place] [address] PT Coag (PPP) [Time]on 12-22 INR Coag (PPP) [Relative time] 0.9 Normal 0.9-1.1 [facility] Comment on above: Performed By: #### 5 902-2 ####DAVILA LEX ([id number])[facility] ([facility])[address] [place] [address] US ABDOMEN LIMITED LIVERon 0 12-23-2023 US ABDOMEN LIMITED LIVER Interpreted By: Harshad Tran, STUDY: US ABDOMEN LIMITED LIVER; 12/23/2023 2:39 pm INDICATION: Signs/Symptoms:Liver cancer screening. ,B18.2 Chronic viral hepatitis C (Multi) COMPARISON: None. ACCESSION NUMBER(S): [id number] ORDERING CLINICIAN: CHIDI JOSEPH TECHNIQUE: Multiple images [...] Harshad Tran 12/24/2023 6:42 AM Dictation workstation: [id number] [facility] CT LUMBAR SPINE WO IV CONTRA STon 12-21-2023 CT LUMBAR SPINE WO IV CONTRAST Interpreted By: Tomás Hercules, STUDY: CT LUMBAR SPINE WO IV CONTRAST; 12/21/2023 10:01 pm INDICATION: Signs/Symptoms:fell, injured lower back. COMPARISON: MR lumbar spine 12/18/2023 ACCESSION NUMBER(S): [id number] ORDERING CLINICIAN: FRANCISCO J DALEY TECHNIQUE: Axial [...] Tomás Hercules 12/21/2023 10:40 PM Dictation workstation: [id number] [facility] ED Clinical Summaryon 2023 ED Clinical Summary (Inserted Image. Darlene ble to display) [address] [address] ED Clinical Summary Person Information Name: Jerad Tracy/[facility] Age: 48 Years : 1975 Sex: Female PCP: Marital Status: Phone: Race: White Ethnicity: Not or Language: Citizen Of [place] Visit Reason: Back pain; Back Pain Acuity: 4 Enc Type: Emergency Med Service: Emergency Medicine Arrival: 12/20/2023 14:17:06 Discharge: 12/20/2023 15:29:00 LOS: 000 01:12 Checkin: 12/20/2023 14:17:06 Checkout: 12/20/2023 15:29:00 Dispo Type: Home or Self Care Address: [address] [place] [phone] Provider Notes: Diagnosis: 1:Chronic back pain Problems [...] Self Patient Education Information: [facility] Poison Help line: . [facility] Hotline: [place] Tobacco Quit Line: [place], [place]) [address]: [phone] [facility] ([place], [place]) [address]: [phone] [facility] [address] [facility]. [place], [place]: [phone] Normal [facility] ED Note-Physicianon 12-20-19 ED Note-Physician Chief Complaint [...] Dose: 12/20/23 14:47:00 EDT, [facility]00 EDT ketorolac, 30 mg, IM, Injection, Once, First Dose: 12/20/23 14:48:00 EDT, Stop Date: 12/20/23 14:48:00 EDT, Dispense From Location: [facility], 12/20/23 14:48:00 EDT Refresh vitals and sections [...] by ___ (more content not included)... Normal [facility] C reactive proteinon 024 CRP [Mass/Vol] 0.80 mg/dL Normal <1.00 [facility] Comment on above: Performed By: #### 1 988-5 ####JOLENE Cantu ([id number])[facility] ([facility])[address] [place] [address] CBC W Auto Differential pane l (Bld)on 12-18-2023 Basophils (Bld) [#/Vol] 0.01 x10*3/uL Normal 0.00-0.10 [facility] Comment on above: Performed By: #### 5 7021-8 ####JOLENE Cantu ([id number])[facility] ([facility])[address] [place] [address] Basophils/100 WBC (Bld) 0.1 % Normal 0.0-2.0 [facility] Comment on above: Performed By: #### 5 7021-8 ####JOLENE Cantu (84763)[facility] ([facility])[address] [place] [address] Eosinophils (Bld) [#/Vol] 0.14 x10*3/uL Normal 0.00-0.70 [facility] Comment on above: Performed By: #### 5 7021-8 ####JOLENE Cantu (69081)[facility] ([facility])[address] [place] [address] Eosinophils/100 WBC (Bld) 1.5 % Normal 0.0-6.0 [facility] Comment on above: Performed By: #### 5 7021-8 ####JOLENE Cantu ([id number])[facility] ([facility])[address] [place] [address] Erythrocyte distribution width (RBC) [Ratio] 12.8 % Normal 11.5-14.5 [facility] Comment on above: Performed By: #### 5 7021-8 ####JOLENE Cantu (81952)[facility] ([facility])[address] [place] [address] Hematocrit (Bld) [Volume fraction] 42.2 % Normal 36.0-46.0 [facility] Comment on above: Performed By: #### 5 7021-8 ####JOLENE Cantu (47018)[facility] ([facility])[address] [place] [address] Hemoglobin (Bld) [Mass/Vol] 14.0 g/dL Normal 12.0-16.0 [facility] Comment on above: Performed By: #### 5 7021-8 ####JOLENE RONQUILLO L (63248)[facility] ([facility])[address] [place] [address] Immature granulocytes (Bld) [#/Vol] 0.05 x10*3/uL Normal 0.00-0.70 [facility] Comment on above: Performed By: #### 5 7021-8 ####JOLENE Cantu (84965)[facility] ([facility])[address] [place] [address] Immature granulocytes/100 WBC (Bld) 0.5 % Normal 0.0-0.9 [facility] Comment on above: Result Comment: Aspen ture Granulocyte Count (IG) includes promyelocytes, myelocytes and metamyelocytes but does not include bands. Percent differential counts (%) should be interpreted in the context of the absolute cell counts (cells/UL). Performed By: #### 5 7021-8 ####JOLENE Cantu (72581)[facility] ([facility])[address] [place] [address] Lymphocytes (Bld) [#/Vol] 1.77 x10*3/uL Normal 1.20-4.80 [facility] Comment on above: Performed By: #### 5 7021-8 ####JOLENE Cantu (15024)[facility] ([facility])[address] [place] [address] Lymphocytes/100 WBC (Bld) 18.6 % Normal 13.0-44.0 [facility] Comment on above: Performed By: #### 5 7021-8 ####JOLENE Cantu (46748)[facility] ([facility])[address] [place] [address] MCH (RBC) [Entitic mass] 30.2 pg Normal 26.0-34.0 [facility] Comment on above: Performed By: #### 5 7021-8 ####JLOENE Cantu (14710)[facility] ([facility])[address] [place] [address] MCHC (RBC) [Mass/Vol] 33.2 g/dL Normal 32.0-36.0 [facility] Comment on above: Performed By: #### 5 7021-8 ####JOLENE Cantu (19907)[facility] ([facility])[address] [place] [address] MCV (RBC) [Entitic vol] 91 fL Normal 80-100 [facility] Comment on above: Performed By: #### 5 7021-8 ####JOLENE Cantu (31093)[facility] ([facility])[address] [place] [address] Monocytes (Bld) [#/Vol] 0.61 x10*3/uL Normal 0.10-1.00 [facility] Comment on above: Performed By: #### 5 7021-8 ####JOLENE Cantu (33775)[facility] ([facility])[address] [place] [address] Monocytes/100 WBC (Bld) 6.4 % Normal 2.0-10.0 [facility] Comment on above: Performed By: #### 5 7021-8 ####JOLENE Cantu (78469)[facility] ([facility])[address] [place] [address] Neutrophils (Bld) [#/Vol] 6.96 x10*3/uL Normal 1.20-7.70 [facility] Comment on above: Result Comment: Perc ent differential counts (%) should be interpreted in the context of the absolute cell counts (cells/uL). Performed By: #### 5 7021-8 ####JOLENE Cantu (51942)[facility] ([facility])[address] [place] [address] Neutrophils/100 WBC (Bld) 72.9 % Normal 40.0-80.0 [facility] Comment on above: Performed By: #### 5 7021-8 ####JOLENE Cantu (31733)[facility] ([facility])[address] [place] [address] Nucleated RBC/100 WBC (Bld) [Ratio] 0.0 /100 WBCs Normal 0.0-0.0 [facility] Comment on above: Performed By: #### 5 7021-8 ####JOLENE Cantu (46057)[facility] ([facility])[address] [place] [address] Platelets (Bld) [#/Vol] 365 x10*3/uL Normal 150-450 [facility] Comment on above: Performed By: #### 5 7021-8 ####JOLENE Cantu (62439)[facility] ([facility])[address] [place] [address] RBC (Bld) [#/Vol] 4.63 x10*6/uL Normal 4.00-5.20 [facility] Comment on above: Performed By: #### 5 7021-8 ####JOLENE Cantu (34112)[facility] ([facility])[address] [place] [address] WBC (Bld) [#/Vol] 9.5 x10*3/uL Normal 4.4-11.3 [facility] Comment on above: Performed By: #### 5 7021-8 ####JOLENE Cantu (16212)[facility] ([facility])[address] [place] [address] Comprehensive metabolic 2000 panelon 12-18-2023 Albumin BCP dye [Mass/Vol] 4.3 g/dL Normal 3.4-5.0 [facility] Comment on above: Performed By: #### 2 4323-8 ####JOLENE Cantu (14647)[facility] ([facility])[address] [place] [address] ALP [Catalytic activity/Vol] 70 U/L Normal 33-110 [facility] Comment on above: Performed By: #### 2 4323-8 ####JOLENE Cantu (96949)[facility] ([facility])[address] [place] [address] ALT With P-5'-P [Catalytic activity/Vol] 19 U/L Normal 7-45 [facility] Comment on above: Result Comment: Katia ents treated with Sulfasalazine may generate falsely decreased results for ALT. Performed By: #### 2 4323-8 ####JOLENE RONQUILLO L (47049)[facility] ([facility])[address] [place] [address] Anion gap [Moles/Vol] 15 mmol/L Normal 10-20 [facility] Comment on above: Performed By: #### 2 4323-8 ####JOLENE Cantu (24686)[facility] ([facility])[address] [place] [address] AST With P-5'-P [Catalytic activity/Vol] 18 U/L Normal 9-39 [facility] Comment on above: Performed By: #### 2 4323-8 ####JOLENE Cantu (92083)[facility] ([facility])[address] [place] [address] Bilirubin [Mass/Vol] 0.5 mg/dL Normal 0.0-1.2 [facility] Comment on above: Performed By: #### 2 4323-8 ####JOLENE Cantu (67720)[facility] ([facility])[address] [place] [address] Calcium [Mass/Vol] 9.2 mg/dL Normal 8.6-10.6 [facility] Comment on above: Performed By: #### 2 4323-8 ####JOLENE RONQUILLO L ([id number])[facility] ([facility])[address] [place] [address] Chloride [Moles/Vol] 101 mmol/L Normal 98-107 [facility] Comment on above: Performed By: #### 2 4323-8 ####JOLENE RONQUILLO L ([id number])[facility] ([facility])[address] [place] [address] CO2 [Moles/Vol] 24 mmol/L Normal 21-32 [facility] Comment on above: Performed By: #### 2 4323-8 ####JOLENE RONQUILLO L ([id number])[facility] ([facility])[address] [place] [address] Creatinine [Mass/Vol] 0.76 mg/dL Normal 0.50-1.05 [facility] Comment on above: Performed By: #### 2 4323-8 ####JOLENE RONQUILLO L ([id number])[facility] ([facility])[address] [place] [address] GFR/1.73 sq M.predicted MDRD (S/P/Bld) [Vol rate/Area] mL/min/{1.73_m2} Normal >60 [facility] Comment on above: Result Comment: Calc ulations of estimated GFR are performed using the 2020 CKD-EPI Study Refit equation without the race variable for the IDMS-Traceable creatinine methods.https://jasn.asnjournals.org/content/early/A SN.7740240263 Performed By: #### 2 4323-8 ####JOLENE Cantu ([id number])[facility] ([facility])[address] [place] [address] Glucose [Mass/Vol] 101 mg/dL High 74-99 [facility] Comment on above: Performed By: #### 2 4323-8 ####JOLENE RONQUILLO L ([id number])[facility] ([facility])[address] [place] [address] Potassium [Moles/Vol] 4.0 mmol/L Normal 3.5-5.3 [facility] Comment on above: Performed By: #### 2 4323-8 ####JOLENE CASTROER L ([id number])[facility] ([facility])[address] [place] [address] Protein [Mass/Vol] 7.5 g/dL Normal 6.4-8.2 [facility] Comment on above: Performed By: #### 2 4323-8 ####JOLENE WELSHMOTZER L ([id number])[facility] ([facility])[address] [place] [address] Sodium [Moles/Vol] 136 mmol/L Normal 136-145 [facility] Comment on above: Performed By: #### 2 4323-8 ####JOLENE WELSHMOTZER L ([id number])[facility] ([facility])[address] [place] [address] Urea nitrogen [Mass/Vol] 10 mg/dL Normal 6-23 [facility] Comment on above: Performed By: #### 2 4323-8 ####JOLENE Cantu ([id number])[facility] ([facility])[address] [place] [address] ESR Westergren method (Bld) [Velocity]on 12-18-2023 ESR (Bld) [Velocity] 51 mm/h High 0-20 [facility] Comment on above: Performed By: #### 4 537-7 ####JOLENE Cantu ([id number])[facility] ([facility])[address] [place] [address] MR CERVICAL SPINE W AND WO I V CONTRASTon 12-18-2023 MR CERVICAL SPINE W AND WO IV CONTRAST Normal [facility] MR LUMBAR SPINE W AND WO IV CONTRASTon 12-18-2023 MR LUMBAR SPINE W AND WO IV CONTRAST Normal [facility] MR THORACIC SPINE W AND WO I V CONTRASTon 12-18-2023 MR THORACIC SPINE W AND WO IV CONTRAST Normal [facility] Urinalysis complete W Reflex Culture panel (U)on 12-18-2023 Appearance (U) Clear Normal Clear [facility] Comment on above: Performed By: #### 5 8077-9 ####JOLENE Cantu ([id number])[facility] ([facility])[address] [place] [address] Bilirubin (U) [Mass/Vol] Negative Normal NEGATIVE [facility] Comment on above: Performed By: #### 5 8077-9 ####JOLENE Cantu ([id number])[facility] ([facility])[address] [place] [address] Color (U) Colorless Normal Light-Yellow , Yellow, Dark-Yellow [facility] Comment on above: Performed By: #### 5 8077-9 ####JOLENE Cantu ([id number])[facility] ([facility])[address] [place] [address] Glucose Auto test strip (U) [Mass/Vol] Normal Normal Normal [facility] Comment on above: Performed By: #### 5 8077-9 ####JOLENE Cantu ([id number])[facility] ([facility])[address] [facility] [place] [address] Ketones (U) [Mass/Vol] Negative Normal [facility]IVE [facility] on above: Performed By: #### 5 8077-9 ####JOLENE Cantu ([id number])[facility] ([facility])[address] [facility] [place] [address] Leukocyte esterase Auto test strip Ql (U) Negative Normal NEGATIVE [facility] Comment on above: Performed By: #### 5 8077-9 ####JOLENE Cantu ([id number])[facility] ([facility])[address] [place] [address] Nitrite Auto test strip Ql (U) Negative Normal NEGATIVE [facility] Comment on above: Performed By: #### 5 8077-9 ####JOLENE Cantu ([id number])[facility] ([facility])[address] [place] [address] pH (U) 7.5 [pH] Normal 5.0, 5.5, 6.0, 6.5, 7.0, 7.5, 8.0 [facility] Comment on above: Performed By: #### 5 8077-9 ####JOLENE Cantu ([id number])[facility] ([facility])[address] [place] [address] Protein (U) [Mass/Vol] Negative Normal NEGAT ALEXANDRE, 10 (TRACE), 20 (TRACE) [facility] Comment on above: Performed By: #### 5 8077-9 ####JOLENE RONQUILLO L (40104)[facility] ([facility])[address] [place] [address] RBC (U) [#/Vol] Negative Normal NEGATIVE [facility] Comment on above: Performed By: #### 5 8077-9 ####JOLENE RONQUILLO L ([id number])[facility] ([facility])[address] [place] [address] Specific gravity (U) [Rel density] 1.004 Normal 1.005-1.035 [facility] Comment on above: Performed By: #### 5 8077-9 ####JOLENE Cantu ([id number])[facility] ([facility])[address] [place] [address] Urobilinogen (U) [Mass/Vol] Normal Normal Normal [facility] Comment on above: Performed By: #### 5 8077-9 ####JOLENE Cantu ([id number])[facility] ([facility])[address] [place] [address] CBC W Auto Differential pane l (Bld)on 12-15-2023 Basophils (Bld) [#/Vol] 0.01 x10*3/uL Normal 0.00-0.10 [facility] Comment on above: Performed By: #### 5 7021-8 #### SANTOSH BAI ([id number]) [facility] ([facility]) [address] [place] [address] Basophils/100 WBC (Bld) 0.1 % Normal 0.0-2.0 [facility] Comment on above: Performed By: #### 5 7021-8 #### SANTOSH BAI ([id number]) [facility] ([facility]) [address] [place] [address] Eosinophils (Bld) [#/Vol] 0.00 x10*3/uL Normal 0.00-0.70 [facility] Comment on above: Performed By: #### 5 7021-8 #### SANTOSH BAI ([id number]) [facility] ([facility]) [address] [place] [address] Eosinophils/100 WBC (Bld) 0.0 % Normal 0.0-6.0 [facility] Comment on above: Performed By: #### 5 7021-8 #### SANTOSH BAI ([id number]) [facility] ([facility]) [address] [place] [address] Erythrocyte distribution width (RBC) [Ratio] 13.2 % Normal 11.5-14.5 [facility] Comment on above: Performed By: #### 5 7021-8 #### SANTOSH BAI ([id number]) [facility] ([facility]) [address] [place] [address] Hematocrit (Bld) [Volume fraction] 40.3 % Normal 36.0-46.0 [facility] Comment on above: Performed By: #### 5 7021-8 #### SANTOSH BAI ([id number]) [facility] ([facility]) [address] [place] [address] Hemoglobin (Bld) [Mass/Vol] 13.1 g/dL Normal 12.0-16.0 [facility] Comment on above: Performed By: #### 5 7021-8 #### SANTOSH BAI ([id number]) [facility] ([facility]) [address] [place] [address] Immature granulocytes (Bld) [#/Vol] 0.05 x10*3/uL Normal 0.00-0.70 [facility] Comment on above: Performed By: #### 5 7021-8 #### SANTOSH BAI ([id number]) [facility] ([facility]) [address] [place] [phone] Immature granulocytes/100 WBC (Bld) 0.6 % Normal 0.0-0.9 [facility] Comment on above: Result Comment: Aspen ture Granulocyte Count (IG) includes promyelocytes, myelocytes and metamyelocytes but does not include bands. Percent differential counts (%) should be interpreted in the context of the absolute cell counts (cells/UL). Performed By: #### 5 7021-8 #### SANTOSH BAI ([id number]) [facility] ([facility]) [address] [place] [address] Lymphocytes (Bld) [#/Vol] 0.89 x10*3/uL Low 1.20-4.80 [facility] Comment on above: Performed By: #### 5 7021-8 #### SANTOSH BAI ([id number]) [facility] ([facility]) [address] [place] [phone] Lymphocytes/100 WBC (Bld) 11.4 % Normal 13.0-44.0 [facility] Comment on above: Performed By: #### 5 7021-8 #### SANTOSH BAI ([id number]) [facility] ([facility]) [address] [place] [address] MCH (RBC) [Entitic mass] 31.0 pg Normal 26.0-34.0 [facility] Comment on above: Performed By: #### 5 7021-8 #### SANTOSH BAI ([id number]) [facility] ([facility]) [address] [place] [address] MCHC (RBC) [Mass/Vol] 32.5 g/dL Normal 32.0-36.0 [facility] Comment on above: Performed By: #### 5 7021-8 #### SANTOSH BAI ([id number]) [facility] ([facility]) [address] [place] [address] MCV (RBC) [Entitic vol] 95 fL Normal 80-100 [facility] Comment on above: Performed By: #### 5 7021-8 #### SANTOSH BAI ([id number]) [facility] ([facility]) [address] [place] [phone] Monocytes (Bld) [#/Vol] 0.24 x10*3/uL Normal 0.10-1.00 [facility] Comment on above: Performed By: #### 5 7021-8 #### SANTOSH BAI ([id number]) [facility] ([facility]) [address] [place] [phone] Monocytes/100 WBC (Bld) 3.1 % Normal 2.0-10.0 [facility] Comment on above: Performed By: #### 5 7021-8 #### SANTOSH BAI ([id number]) [facility] ([facility]) [address] [place] [address] Neutrophils (Bld) [#/Vol] 6.64 x10*3/uL Normal 1.20-7.70 [facility] Comment on above: Result Comment: Perc ent differential counts (%) should be interpreted in the context of the absolute cell counts (cells/uL). Performed By: #### 5 7021-8 #### SANTOSH BAI ([id number]) [facility] ([facility]) [address] [place] [phone] Neutrophils/100 WBC (Bld) 84.8 % Normal 40.0-80.0 [facility] Comment on above: Performed By: #### 5 7021-8 #### SANTOSH BAI ([id number]) [facility] ([facility]) [address] [place] [address] Nucleated RBC/100 WBC (Bld) [Ratio] 0.0 /100 WBCs Normal 0.0-0.0 [facility] Comment on above: Performed By: #### 5 7021-8 #### SANTOSH BAI ([id number]) [facility] ([facility]) [address] [place] [address] Platelets (Bld) [#/Vol] 303 x10*3/uL Normal 150-450 [facility] Comment on above: Performed By: #### 5 7021-8 #### SANTOSH BAI ([id number]) [facility] ([facility]) [address] [place] [phone] RBC (Bld) [#/Vol] 4.23 x10*6/uL Normal 4.00-5.20 [facility] Comment on above: Performed By: #### 5 7021-8 #### SANTOSH BAI ([id number]) [facility] ([facility]) [address] [place] [phone] WBC (Bld) [#/Vol] 7.8 x10*3/uL Normal 4.4-11.3 [facility] Comment on above: Performed By: #### 5 7021-8 #### SANTOSH BAI ([id number]) [facility] ([facility]) [address] [place] [phone] ABDOMEN PELVIS W IV CONTR William 12-15-2023 CT ABDOMEN PELVIS W IV CONTRAST Interpreted By: Allyson Schultz, STUDY: CT ABDOMEN PELVIS W IV CONTRAST; CT LUMBAR SPINE W IV CONTRAST; 12/15/2023 7:50 pm INDICATION: Signs/Symptoms:h/o spinal stim c/b infections with wound vac in place, pain to surrounding areas radiating to flanks. COMPARISON: 12/07/2023 CT abdomen/pelvis ACCESSION NUMBER(S): [id number]; [id number] ORDERING CLINICIAN: PABLO GERONIMO TECHNIQUE: Contiguous axial [...] Allyson Schultz 12/15/2023 8:37 PM Dictation workstation: [id number] [facility] CT LUMBAR SPINE W IV CONTRAS Ton 12-15-2023 CT LUMBAR SPINE W IV CONTRAST Interpreted By: Allyson Schultz, STUDY: CT ABDOMEN PELVIS W IV CONTRAST; CT LUMBAR SPINE W IV CONTRAST; 12/15/2023 7:50 pm INDICATION: Signs/Symptoms:h/o spinal stim c/b infections with wound vac in place, pain to surrounding areas radiating to flanks. COMPARISON: 12/07/2023 CT abdomen/pelvis ACCESSION NUMBER(S): [id number]; [id number] ORDERING CLINICIAN: PABLO GERONIMO TECHNIQUE: Contiguous axial [...] Allyson Schultz 12/15/2023 8:37 PM Dictation workstation: [id number] Normal [facility] Comprehensive metabolic 2000 panelon 12-15-2023 Albumin BCP dye [Mass/Vol] 4.2 g/dL Normal 3.4-5.0 [facility] Comment on above: Performed By: #### 2 4323-8 #### SANTOSH BAI ([id number]) [facility] ([facility]) [address] [place] [address] ALP [Catalytic activity/Vol] 79 U/L Normal 33-110 [facility] Comment on above: Performed By: #### 2 4323-8 #### SANTOSH BAI ([id number]) [facility] ([facility]) [address] [place] [address] ALT With P-5'-P [Catalytic activity/Vol] 21 U/L Normal 7-45 [facility] Comment on above: Result Comment: Katia ents treated with Sulfasalazine may generate falsely decreased results for ALT. Performed By: #### 2 4323-8 #### SANTOSH BAI ([id number]) [facility] ([facility]) [address] [place] [address] Anion gap [Moles/Vol] 11 mmol/L Normal 10-20 [facility] Comment on above: Performed By: #### 2 432-8 #### SANTOSH BAI ([id number]) [facility] ([facility]) [address] [place] [address] AST With P-5'-P [Catalytic activity/Vol] 18 U/L Normal 9-39 [facility] Comment on above: Performed By: #### 2 432-8 #### SANTOSH BAI ([id number]) [facility] ([facility]) [address] [place] [address] Bilirubin [Mass/Vol] 0.2 mg/dL Normal 0.0-1.2 [facility] Comment on above: Performed By: #### 2 4323-8 #### SANTOSH BAI ([id number]) [facility] ([facility]) [address] [place] [address] Calcium [Mass/Vol] 8.5 mg/dL Low 8.6-10.3 [facility] Comment on above: Performed By: #### 2 4323-8 #### SANTOSH BAI ([id number]) [facility] ([facility]) [address] [place] [address] Chloride [Moles/Vol] 105 mmol/L Normal 98-107 [facility] Comment on above: Performed By: #### 2 4323-8 #### SANTOSH BAI ([id number]) [facility] ([facility]) [address] [place] [address] CO2 [Moles/Vol] 24 mmol/L Normal 21-32 [facility] Comment on above: Performed By: #### 2 4323-8 #### SANTOSH BAI ([id number]) [facility] ([facility]) [address] [place] [address] Creatinine [Mass/Vol] 0.73 mg/dL Normal 0.50-1.05 [facility] Comment on above: Performed By: #### 2 4323-8 #### SANTOSH BAI ([id number]) [facility] ([facility]) [address] [place] [address] GFR/1.73 sq M.predicted MDRD (S/P/Bld) [Vol rate/Area] mL/min/{1.73_m2} Normal >60 [facility] Comment on above: Result Comment: Calc ulations of estimated GFR are performed using the 2020 CKD-EPI Study Refit equation without the race variable for the IDMS-Traceable creatinine methods. https://jasn.asnjournals.org/content/early//ASN.83467 21659 Performed By: #### 2 4323-8 #### SANTOSH BAI ([id number]) [facility] ([facility]) [address] [place] [address] Glucose [Mass/Vol] 114 mg/dL High 74-99 [facility] Comment on above: Performed By: #### 2 4323-8 #### SANTOSH BAI ([id number]) [facility] ([facility]) [address] [place] [address] Potassium [Moles/Vol] 4.5 mmol/L Normal 3.5-5.3 [facility] Comment on above: Performed By: #### 2 4323-8 #### SANTOSH BAI ([id number]) [facility] ([facility]) [address] [place] [address] Protein [Mass/Vol] 7.2 g/dL Normal 6.4-8.2 [facility] Comment on above: Performed By: #### 2 4323-8 #### SANTOSH BAI ([id number]) [facility] ([facility]) [address] [place] [address] Sodium [Moles/Vol] 135 mmol/L Low 136-145 [facility] Comment on above: Performed By: #### 2 4323-8 #### SANTOSH BAI ([id number]) [facility] ([facility]) [address] [place] [phone] Urea nitrogen [Mass/Vol] 12 mg/dL Normal 6-23 [facility] Comment on above: Performed By: #### 2 4323-8 #### SANTOSH BAI ([id number]) [facility] ([facility]) [address] [place] [phone] Magnesiumon 12-15-2023 Magnesium [Mass/Vol] 1.90 mg/dL Normal 1.60-2.40 [facility] Comment on above: Performed By: #### 1 9123-9 #### SANTOSH BAI ([id number]) [facility] ([facility]) [address] [place] [phone] PT and aPTT panel Coag (PPP) on 12-15-2023 aPTT Coag (PPP) [Time] 31 s Normal 27-38 [facility] Comment on above: Order Comment: The A PTT is no longer used for monitoring Unfractionated Heparin Therapy. For monitoring Heparin Therapy, use the Heparin Assay. Performed By: #### 3 4529-8 #### SANTOSH BAI ([id number]) [facility] ([facility]) [address] [place] [phone] INR Coag (PPP) [Relative time] 0.9 Normal 0.9-1.1 [facility] Comment on above: Order Comment: The A PTT is no longer used for monitoring Unfractionated Heparin Therapy. For monitoring Heparin Therapy, use the Heparin Assay. Performed By: #### 3 4529-8 #### SANTOSH BAI ([id number]) [facility] ([facility]) [address] [place] [address] PT Coag (PPP) [Time] 10.5 s Normal 9.8-12.8 [facility] Comment on above: Order Comment: The A PTT is no longer used for monitoring Unfractionated Heparin Therapy. For monitoring Heparin Therapy, use the Heparin Assay. Performed By: #### 3 4529-8 #### SANTOSH LI ([id number]) [facility] ([facility]) [address] [place] [address] ED Note-Physicianon 12-14-19 ED Note-Physician ED Note-Physician [...] spine on Saturday. This was performed at [facility]. She states this was due to [...] strongly recommended that the patient follow-up with [facility]. She states she does not want to drive all the way to [place]. I discussed with her she might want to contact them and see if she can be followed closer such as the [facility]. I discussed the discharge diagnosis, plan [...] each nostr (more content not included)... Normal [facility] Comment on above: Result Comment: Elec tronically Signed By: Kristie Boss PA-C\.br\Date and Time Signed: 12/13/23 14:15 EDT\.br\Electronically Co-Signed By: Jorge Mcintosh DO\.br\Date and Time Co-Signed: 12/14/23 07:22 EDT ED Clinical Summaryon 2023 ED Clinical Summary ED Clinical Summary [place] [id number] ED Clinical Summary Person Information Name: JERAD TRACY [place] Age: 48 Years : 1975 Sex: Female Language: Citizen Of [place] PCP: Cheyanne Rincon Marital Status: Visit Id: [...] 12/13/2023 14:18:11 12/13/2023 14:18:11 12/13/2023 14:18:11 ADDRESS: [address] [place] [id number] PHYS DOC NOTES: MEDICAL INFORMATION: Prescriptions Given: New Medications [facility], [address] [place], [place] [id number], [phone] fluticasone nasal (Flonase 0.05 mg/inh [place]) 2 Sprays Topical every day. each nostril. [...] 0. PATIENT EDUCATION INFORMATION: Instructions: Allergies, Adult, Wels-pc-Mukh Follow up: With: Address: When: Cheyanne Rosas [address] [place] [address] [place] [phone] Business (1) In 3 days 12/16/2023 DIAGNOSIS: 1:Allergic reaction to adhesive Normal [facility] ED Patient Summaryon 024 ED Patient Summary ED Patient Summary [address] [address] Patient Discharge Instructions Person Information Name: JERAD TRACY Age: 48 Years Arrival Date: 12/13/2023 13:34:05 Discharge Diagnosis: 1:Allergic reaction to adhesive Primary Care Physician: Cheyanne Rincon Provider Information Primary Provider: Jorge Mcintosh DO [employer] Director:None The exam and treatment you received in the Emergency Department were for an urgent problem and are not intended as complete care. It is important that you follow up with a doctor, nurse practitioner, or physician?s dermatology physician assistant for ongoing care. If your symptoms become worse or you do not improve as expected and you are unable to reach your usual health care provider, you should return to the Emergency Department. We are available 24 hours a day. JREAD TRACY has been given the following list of patient education materials, prescriptions and follow-up instructions: Follow-up Instructions: With: Address: When: Cheyanne Rosas [address], [address], [place] [phone] Business (1) In 3 days 12/16/2023 In the event that this physician does not participate in your insurance network, please consult with your insurance company to find a nearby participating provider. Patient Education Materials: Allergies, Adult, Lhpv-ts-Jgni A MESSAGE TO ALL PATIENTS REGARDING OPIOIDS PRESCRIPTION OPIOIDS: WHAT YOU NEED TO KNOW Prescription opioids can be used to help relieve riixlzdz-he-bqzret pain and are often prescribed following a [...] be struggling with addiction, tell your health technical healthcare consultant and ask for guidance or call [employer] (more content not included)... Normal [facility] CT HEAD WO IV CONTRASTon CT HEAD WO IV CONTRAST Normal [facility] ECG 12-LEADon 12-10-2023 ECG 12-LEAD Ventricular Rate 68 Atrial Rate 68 P-R Interval 126 QRS Duration 88 Q-T Interval 450 QTC Calculation(Bazett) 478 P Linden 39 R Linden 20 T Linden 12 QRS Count 12 Q Onset 217 P Onset 154 P Offset 201 T Offset 442 QTC Fredericia 469 Diagnosis Normal sinus rhythm with sinus arrhythmia Normal ECG When compared with ECG of 09-DEC-2023 13:48, No significant change was found See ED provider note for full interpretation and clinical correlation Confirmed by Samantha Cain ([id number]) on 12/10/2023 1:59:40 AM Normal [facility] Urinalysis complete panel (U )on 12-10-2023 Appearance (U) Turbid Normal Clear [facility] Comment on above: Performed By: #### 2 4356-8 ####JOLENE Cantu ([id number])[facility] ([facility])[id number] [place] [address] Bilirubin (U) [Mass/Vol] Negative Normal NEGATIVE [facility] Comment on above: Performed By: #### 2 4356-8 ####JOLENE Cantu ([id number])[facility] ([facility])[id number] [place], [place] [address] Color (U) Yellow Normal Light-Yellow , Yellow, Dark-Yellow [facility] Comment on above: Performed By: #### 2 4356-8 ####JOLENE Cantu ([id number])[facility] ([facility])[address] [place] [address] Glucose Auto test strip (U) [Mass/Vol] Normal Normal Normal [facility] Comment on above: Performed By: #### 2 4356-8 ####JOLENE Cantu ([id number])[facility] ([facility])[address] [place] [address] Ketones (U) [Mass/Vol] 10 (1+) Abnormal NEGATIVE Un [facility] Comment on above: Performed By: #### 2 4356-8 ####JOLENE Cantu ([id number])[facility] ([facility])[address] [place] [address] Leukocyte esterase Auto test strip Ql (U) 25 Robert/???L Abnormal NEGATIVE [facility] Comment on above: Performed By: #### 2 4356-8 ####JOLENE Cantu ([id number])[facility] ([facility])[address] [place] [address] Nitrite Auto test strip Ql (U) Negative Normal NEGATIVE [facility] Comment on above: Performed By: #### 2 4356-8 ####JOLENE Cantu ([id number])[facility] ([facility])[address] [place] [address] pH (U) 6.0 [pH] Normal 5.0, 5.5, 6.0, 6.5, 7.0, 7.5, 8.0 [facility] Comment on above: Performed By: #### 2 4356-8 ####JOLENE Cantu (22725)[facility] ([facility])[address] [place] [address] Protein (U) [Mass/Vol] 50 (1+) Abnormal NEGAT ALEXANDRE, 10 (TRACE), 20 (TRACE) [facility] Comment on above: Performed By: #### 2 4356-8 ####JOLENE Cantu ([id number])[facility] ([facility])[address] [place] [address] RBC (U) [#/Vol] Negative Normal NEGATIVE [facility] Comment on above: Performed By: #### 2 4356-8 ####JOLENE Cantu (55785)[facility] ([facility])[address] [place] [address] Specific gravity (U) [Rel density] 1.035 Normal 1.005-1.035 [facility] Comment on above: Performed By: #### 2 4356-8 ####JOLENE Cantu (47968)[facility] ([facility])[address] [place] [address] Urobilinogen (U) [Mass/Vol] 4 (2+) Abnormal Normal [facility] Comment on above: Result Comment: Some pigments and medications may cause a false positive urobilinogen. Performed By: #### 2 4356-8 ####JOLENE Cantu (93300)[facility] ([facility])[address] [place] [address] Urinalysis microscopic panel Auto Ql (U)on 12-10-2023 Calcium oxalate crystals Computer assisted (U) [#/Area] 4+ /HPF Abnormal NONE, 1+ [facility] Comment on above: Performed By: #### 5 3315-8 ####JOLENE Cantu ([id number])[facility] ([facility])[address] [place] [address] Epithelial cells.squamous Auto (Urine sed) [#/Area] 10-25 (FEW) Normal Reference range not established. [facility] Comment on above: Performed By: #### 5 9925-8 ####JOLENE Cantu ([id number])[facility] ([facility])[address] [place] [address] Mucus Auto (Urine sed) [#/Area] 4+ /LPF Normal Reference range not established. [facility] Comment on above: Performed By: #### 5 8095-8 ####JOLENE Cantu (85884)[facility] ([facility])[address] [place] [address] RBC Auto (Urine sed) [#/Area] 1-2 Normal NONE, 1-2, 3-5 [facility] Comment on above: Performed By: #### 5 3415-8 ####JOLENE Cantu ([id number])[facility] ([facility])[address] [place] [address] WBC Auto (Urine sed) [#/Area] 1-5 Normal 1-5, NONE [facility] Comment on above: Performed By: #### 5 6595-8 ####JOLENE Cantu (40269)[facility] ([facility])[address] [place] [address] XR CHEST 2 VIEWSon XR CHEST 2 VIEWS Normal [facility] CBC W Auto Differential pane l (Bld)on 12-09-2023 Basophils (Bld) [#/Vol] 0.01 x10*3/uL Normal 0.00-0.10 [facility] Comment on above: Performed By: #### 5 7021-8 ####JOLENE Cantu (76426)[facility] ([facility])[address] [place] [address] Basophils/100 WBC (Bld) 0.2 % Normal 0.0-2.0 [facility] Comment on above: Performed By: #### 5 7021-8 ####JOLENE RONQUILLO L (53711)[facility] ([facility])[address] [place] [address]009 Eosinophils (Bld) [#/Vol] 0.28 x10*3/uL Normal 0.00-0.70 [facility] Comment on above: Performed By: #### 5 7021-8 ####JOLENE RONQUILLO L (59986)[facility] ([facility])[address] [place] [address]441 Eosinophils/100 WBC (Bld) 4.3 % Normal 0.0-6.0 [facility] Comment on above: Performed By: #### 7021-8 ####JOLENE RONQUILLO L ([id number])[facility] ([facility])[address] [place] [address] 94821 Erythrocyte distribution width (RBC) [Ratio] 12.6 % Normal 11.5-14.5 [facility] Comment on above: Performed By: #### 5 7021-8 ####JOLENE RONQUILLO L (18049)[facility] ([facility])[address] [place] [address]98 Hematocrit (Bld) [Volume fraction] 35.8 % Low 36.0-46.0 [facility] Comment on above: Performed By: #### 5 7021-8 ####JOLENE RONQUILLO L (60823)[facility] ([facility])[address] [place] [address]18 Hemoglobin (Bld) [Mass/Vol] 12.5 g/dL Normal 12.0-16.0 [facility] Comment on above: Performed By: #### 5 7021-8 ####JOLENE Cantu (90098)[facility] ([facility])[address] [place] [address] Immature granulocytes (Bld) [#/Vol] 0.08 x10*3/uL Normal 0.00-0.70 [facility] Comment on above: Performed By: #### 5 7021-8 ####JOLENE Cantu ([id number])[facility] ([facility])[address] [place] [address] Immature granulocytes/100 WBC (Bld) 1.2 % High 0.0-0.9 [facility] Comment on above: Result Comment: Aspen ture Granulocyte Count (IG) includes promyelocytes, myelocytes and metamyelocytes but does not include bands. Percent differential counts (%) should be interpreted in the context of the absolute cell counts (cells/UL). Performed By: #### 5 7021-8 ####JOLENE Cantu (25641)[facility] ([facility])[address] [place] [address] Lymphocytes (Bld) [#/Vol] 2.32 x10*3/uL Normal 1.20-4.80 [facility] Comment on above: Performed By: #### 5 7021-8 ####JOLENE Cantu (89768)[facility] ([facility])[address] [place] [address] Lymphocytes/100 WBC (Bld) 35.7 % Normal 13.0-44.0 [facility] Comment on above: Performed By: #### 5 7021-8 ####JOLENE Cantu (03898)[facility] ([facility])[address] [place] [address] MCH (RBC) [Entitic mass] 30.6 pg Normal 26.0-34.0 [facility] Comment on above: Performed By: #### 5 7021-8 ####JOLENE Cantu (80725)[facility] ([facility])[address] [place] [address] MCHC (RBC) [Mass/Vol] 34.9 g/dL Normal 32.0-36.0 [facility] Comment on above: Performed By: #### 5 7021-8 ####JOLENE Cantu (91447)[facility] ([facility])[address] [place] [address] MCV (RBC) [Entitic vol] 88 fL Normal 80-100 [facility] Comment on above: Performed By: #### 5 7021-8 ####JOLENE Cantu (55750)[facility] ([facility])[address] [place] [address] Monocytes (Bld) [#/Vol] 0.52 x10*3/uL Normal 0.10-1.00 [facility] Comment on above: Performed By: #### 5 7021-8 ####JOLENE Cantu (34336)[facility] ([facility])[address] [place] [address] Monocytes/100 WBC (Bld) 8.0 % Normal 2.0-10.0 [facility] Comment on above: Performed By: #### 5 7021-8 ####JOLENE Cantu (23963)[facility] ([facility])[address] [place] [address] Neutrophils (Bld) [#/Vol] 3.29 x10*3/uL Normal 1.20-7.70 [facility] Comment on above: Result Comment: Perc ent differential counts (%) should be interpreted in the context of the absolute cell counts (cells/uL). Performed By: #### 5 7021-8 ####JOLENE Cantu (38172)[facility] ([facility])[address] [place] [address] Neutrophils/100 WBC (Bld) 50.6 % Normal 40.0-80.0 [facility] Comment on above: Performed By: #### 5 7021-8 ####JOLENE Cantu (61352)[facility] ([facility])[address] [place] [address] Nucleated RBC/100 WBC (Bld) [Ratio] 0.0 /100 WBCs Normal 0.0-0.0 [facility] Comment on above: Performed By: #### 5 7021-8 ####JOLENE Cantu (87531)[facility] ([facility])[address] [place] [address] Platelets (Bld) [#/Vol] 295 x10*3/uL Normal 150-450 [facility] Comment on above: Performed By: #### 5 7021-8 ####JOLENE Catnu (61295)[facility] ([facility])[address] [place] [address] RBC (Bld) [#/Vol] 4.09 x10*6/uL Normal 4.00-5.20 [facility] Comment on above: Performed By: #### 5 7021-8 ####JOLENE Cantu (05595)[facility] ([facility])[address] [place] [address] WBC (Bld) [#/Vol] 6.5 x10*3/uL Normal 4.4-11.3 [facility] Comment on above: Performed By: #### 5 7021-8 ####JOLENE Cantu (55428)[facility] ([facility])[address] [place] [address] Comprehensive metabolic 2000 panelon 12-09-2023 Albumin BCP dye [Mass/Vol] 4.0 g/dL Normal 3.4-5.0 [facility] Comment on above: Performed By: #### 2 4323-8 ####JOLENE Cantu (61274)[facility] ([facility])[address] [place] [address] ALP [Catalytic activity/Vol] 87 U/L Normal 33-110 [facility] Comment on above: Performed By: #### 2 4323-8 ####JOLENE Cantu (32118)[facility] ([facility])[address] [place] [address] ALT With P-5'-P [Catalytic activity/Vol] 24 U/L Normal 7-45 [facility] Comment on above: Result Comment: Katia ents treated with Sulfasalazine may generate falsely decreased results for ALT. Performed By: #### 2 4323-8 ####JOLENE Cantu (47549)[facility] ([facility])[address] [facility] [place] [address] Anion gap [Moles/Vol] 14 mmol/L Normal 10-20 [facility] Comment on above: Performed By: #### 2 4323-8 ####OJLENE Cantu ([id number])[facility] ([facility])[address] [place] [address] AST With P-5'-P [Catalytic activity/Vol] 25 U/L Normal 9-39 [facility] Comment on above: Performed By: #### 2 4323-8 ####JOLENE Cantu ([id number])[facility] ([facility])[address] [place] [address] Bilirubin [Mass/Vol] 0.3 mg/dL Normal 0.0-1.2 [facility] Comment on above: Performed By: #### 2 4323-8 ####JOLENE Cantu (59941)[facility] ([facility])[address] [place] [address] Calcium [Mass/Vol] 8.7 mg/dL Normal 8.6-10.6 [facility] Comment on above: Performed By: #### 2 4323-8 ####JOLENE Cantu (32113)[facility] ([facility])[address] [place] [address] Chloride [Moles/Vol] 105 mmol/L Normal 98-107 [facility] Comment on above: Performed By: #### 2 4323-8 ####JOLENE Cantu (87695)[facility] ([facility])[address] [place] [address] CO2 [Moles/Vol] 25 mmol/L Normal 21-32 [facility] Comment on above: Performed By: #### 2 4323-8 ####JOLENE Cantu (21229)[facility] ([facility])[address] [place] [address] Creatinine [Mass/Vol] 0.82 mg/dL Normal 0.50-1.05 [facility] Comment on above: Performed By: #### 2 4323-8 ####JOLENE RONQUILLO L (22133)[facility] ([facility])[address] [place] [address] Glomerular filtration rate/1.73 sq M.predicted 89 mL/min/1.73m*2 Normal >60 [facility] Comment on above: Result Comment: Calc ulations of estimated GFR are performed using the 2020 CKD-EPI Study Refit equation without the race variable for the IDMS-Traceable creatinine methods.https://jasn.asnjournals.org/content//A .5142631940 Performed By: #### 2 4323-8 ####JOLENE RONQUILLO L (84366)[facility] ([facility])[address] [place] [address]80 Glucose [Mass/Vol] 103 mg/dL High 74-99 [facility] Comment on above: Performed By: #### 2 4323-8 ####JOLENE RONQUILLO L (06303)[facility] ([facility])[address] [place] [address]1594 Potassium [Moles/Vol] 3.5 mmol/L Normal 3.5-5.3 [facility] Comment on above: Performed By: #### 2 4323-8 ####JOLENE RONQUILLO L (28934)[facility] ([facility])[address] [place] [address] 24192 Protein [Mass/Vol] 7.1 g/dL Normal 6.4-8.2 [facility] Comment on above: Performed By: #### 2 4323-8 ####JOLENE RONQUILLO L (34255)[facility] ([facility])[address] [place] [address] Sodium [Moles/Vol] 140 mmol/L Normal 136-145 [facility] Comment on above: Performed By: #### 2 4323-8 ####JOLENE Cantu (23179)[facility] ([facility])[address] [place] [address] Urea nitrogen [Mass/Vol] 9 mg/dL Normal 6-23 [facility] Comment on above: Performed By: #### 2 4323-8 ####JOLENE CASTROER L (42551)[facility] ([facility])[address] [place] [address] ECG 12-LEADon 12-09-2023 ECG 12-LEAD Ventricular Rate 70 Atrial Rate 70 P-R Interval 128 QRS Duration 86 Q-T Interval 434 QTC Calculation(Bazett) 468 P Linden 47 R Linden 35 T Linden 39 QRS Count 11 Q Onset 217 P Onset 153 P Offset 205 T Offset 434 QTC Fredericia 457 Diagnosis Normal sinus rhythm Low voltage QRS Borderline ECG When compared with ECG of 07-DEC-2023 17:07, No significant change was found See ED provider note for full interpretation and clinical correlation Confirmed by Germaine Diaz ([id number]) on 12/13/2023 5:09:16 PM Normal [facility] Troponin I.cardiac panelon 0 12-09-2023 Tropinin I.cardiac panel High sensitivity method <3 Normal 0-34 [facility] Comment on above: Order Comment: Less [...] is performed using a differenttesting methodology at [facility]. Direct result comparisons should onlybe made within the same method. Performed By: #### 8 9577-1 ####JOLENE Cantu (77648)[facility] ([facility])[address] [place], [place] [address] XR ELBOW RIGHT 1-2 VIEWSon 0 12-09-2023 XR ELBOW RIGHT 1-2 VIEWS Interpreted By: Ernestina Bond, STUDY: Right elbow, two views. INDICATION: Signs/Symptoms:Fall with injury. COMPARISON: 09/16/2023. ACCESSION NUMBER(S): [id number] ORDERING CLINICIAN: JAROCHO TRONCOSO FINDINGS: No acute fracture or malalignment. No elbow joint effusion or abnormal fat pad elevation. No significant degenerative changes. Soft tissues are unremarkable. IMPRESSION: 1. Unremarkable radiographic evaluation of the right elbow. MACRO: None. Signed by: Ernestina Bond 12/09/2023 2:36 PM Dictation workstation: [id number] [facility] XR HAND RIGHT 3+ VIEWSon XR HAND RIGHT 3+ VIEWS Interpreted By: Ernestina Bond, STUDY: Right hand, 3 views. INDICATION: Signs/Symptoms:Fall with right thumb/hand injury. COMPARISON: None. ACCESSION NUMBER(S): [id number] ORDERING CLINICIAN: JAROCHO TRONCOSO FINDINGS: No acute [...] Ernestina Bond 12/09/2023 2:36 PM Dictation workstation: [id number] [facility] XR SHOULDER RIGHT 2+ VIEWSon 12-09-2023 XR SHOULDER RIGHT 2+ VIEWS Interpreted By: Ernestina Bond, STUDY: Right shoulder, five views. INDICATION: Signs/Symptoms:Injury to right shoulder. COMPARISON: Chest radiograph 12/07/2023. ACCESSION NUMBER(S): [id number] ORDERING CLINICIAN: JAROCHO TRONCOSO FINDINGS: No acute fracture or malalignment. No significant degenerative changes. Soft tissues are unremarkable. Remote healed fracture deformity of the mid right clavicle noted with mild malunion. IMPRESSION: 1. Unremarkable right shoulder radiographs. 2. Remote healed fracture deformity of the mid right clavicle with mild malunion. MACRO: None. Signed by: Ernestina Bond 12/09/2023 2:34 PM Dictation workstation: [id number] Normal [facility] Bilirubin.glucuronidated+Kenan irubin.albumin boundon 12-07-2023 Bilirubin.direct [Mass/Vol] 0.1 mg/dL Normal 0.0-0.3 [facility] Comment on above: Performed By: #### 1 968-7 ####JOLENE Cantu (10658)[facility] ([facility])[address] [place] [address] CBC W Auto Differential pane l (Bld)on 12-07-2023 Basophils (Bld) [#/Vol] 0.01 x10*3/uL Normal 0.00-0.10 [facility] Comment on above: Performed By: #### 5 7021-8 ####JOLENE Cantu (70472)[facility] ([facility])[address] [place] [address] Basophils/100 WBC (Bld) 0.1 % Normal 0.0-2.0 [facility] Comment on above: Performed By: #### 5 7021-8 ####JOLENE Cantu ([id number])[facility] ([facility])[address] [place] [address] Eosinophils (Bld) [#/Vol] 0.27 x10*3/uL Normal 0.00-0.70 [facility] Comment on above: Performed By: #### 5 7021-8 ####JOLENE Cantu (98605)[facility] ([facility])[address] [place] [address] Eosinophils/100 WBC (Bld) 3.8 % Normal 0.0-6.0 [facility] Comment on above: Performed By: #### 5 7021-8 ####JOLENE CASTROER L (92314)[facility] ([facility])[address] [place] [address] Erythrocyte distribution width (RBC) [Ratio] 13.0 % Normal 11.5-14.5 [facility] Comment on above: Performed By: #### 5 7021-8 ####JOLENE WELSHMOREGINALDO L (94807)[facility] ([facility])[address] [place] [address]65[address] Hematocrit (Bld) [Volume fraction] 41.4 % Normal 36.0-46.0 [facility] Comment on above: Performed By: #### 5 7021-8 ####JOLENE RONQUILLO L (74308)[facility] ([facility])[address] [place] [address] Hemoglobin (Bld) [Mass/Vol] 13.4 g/dL Normal 12.0-16.0 [facility] Comment on above: Performed By: #### 5 7021-8 ####JOLENE WELSHMOTZER L (23545)[facility] ([facility])[address] [place] [address]372 Immature granulocytes (Bld) [#/Vol] 0.02 x10*3/uL Normal 0.00-0.70 [facility] Comment on above: Performed By: #### 5 7021-8 ####JOLENE RONQUILLO L (56447)[facility] ([facility])[address] [place] [address] 42610 Immature granulocytes/100 WBC (Bld) 0.3 % Normal 0.0-0.9 [facility] Comment on above: Result Comment: Aspen ture Granulocyte Count (IG) includes promyelocytes, myelocytes and metamyelocytes but does not include bands. Percent differential counts (%) should be interpreted in the context of the absolute cell counts (cells/UL). Performed By: #### 5 7021-8 ####JOLENE WELSHMOTZER L (33627)[facility] ([facility])[address] [place] [address] Lymphocytes (Bld) [#/Vol] 1.45 x10*3/uL Normal 1.20-4.80 [facility] Comment on above: Performed By: #### 5 7021-8 ####JOLENE Cantu (05391)[facility] ([facility])[address] [place] [address] Lymphocytes/100 WBC (Bld) 20.3 % Normal 13.0-44.0 [facility] Comment on above: Performed By: #### 5 7021-8 ####JOLENE Cantu (19399)[facility] ([facility])[address] [place] [address] MCH (RBC) [Entitic mass] 30.6 pg Normal 26.0-34.0 [facility] Comment on above: Performed By: #### 5 7021-8 ####JOLENE Cantu (31478)[facility] ([facility])[address] [place] [address] MCHC (RBC) [Mass/Vol] 32.4 g/dL Normal 32.0-36.0 [facility] Comment on above: Performed By: #### 5 7021-8 ####JOLENE Cantu (32935)[facility] ([facility])[address] [place] [address]83[address] MCV (RBC) [Entitic vol] 95 fL Normal 80-100 [facility] Comment on above: Performed By: #### 5 7021-8 ####JOLENE Cantu (69090)[facility] ([facility])[address] [place] [address] Monocytes (Bld) [#/Vol] 0.52 x10*3/uL Normal 0.10-1.00 [facility] Comment on above: Performed By: #### 5 7021-8 ####JOLENE Cantu (04722)[facility] ([facility])[address] [place] [address] Monocytes/100 WBC (Bld) 7.3 % Normal 2.0-10.0 [facility] Comment on above: Performed By: #### 5 7021-8 ####JOLENE RONQUILLO L (37484)[facility] ([facility])[address] [place] [address] Neutrophils (Bld) [#/Vol] 4.87 x10*3/uL Normal 1.20-7.70 [facility] Comment on above: Result Comment: Perc ent differential counts (%) should be interpreted in the context of the absolute cell counts (cells/uL). Performed By: #### 5 7021-8 ####JOLENE RONQUILLO L (75020)[facility] ([facility])[address] [place] [address] Neutrophils/100 WBC (Bld) 68.2 % Normal 40.0-80.0 [facility] Comment on above: Performed By: #### 5 7021-8 ####JOLENE RONQUILLO L (82203)[facility] ([facility])[address] [place] [address] Nucleated RBC/100 WBC (Bld) [Ratio] 0.0 /100 WBCs Normal 0.0-0.0 [facility] Comment on above: Performed By: #### 5 7021-8 ####JOLNEE RONQUILLO L (98783)[facility] ([facility])[address] [place] [address] Platelets (Bld) [#/Vol] 341 x10*3/uL Normal 150-450 [facility] Comment on above: Performed By: #### 5 7021-8 ####JOLENE WELSHMOTZER L (05941)[facility] ([facility])[address] [place] [address] RBC (Bld) [#/Vol] 4.38 x10*6/uL Normal 4.00-5.20 [facility] Comment on above: Performed By: #### 5 7021-8 ####JOLENE WELSHMOTZSUSAN L ([id number])[facility] ([facility])[address] [place] [address] WBC (Bld) [#/Vol] 7.1 x10*3/uL Normal 4.4-11.3 [facility] Comment on above: Performed By: #### 5 7021-8 ####JOLENE Cantu ([id number])[facility] ([facility])[id number] [place] [id number] ABDOMEN PELVIS W IV CONTR [place] 12-07-2023 CT ABDOMEN PELVIS W IV CONTRAST Normal [facility] CT LUMBAR SPINE WO IV CONTRA STon 12-07-2023 CT LUMBAR SPINE WO IV CONTRAST Normal [facility] Choriogonadotropin.beta subu niton 12-07-2023 HCG.beta subunit Qn m[IU]/mL Normal <5 [facility] Comment on above: Order Comment: Total HCG measurement is performed using the Siemens AtellInformous immunoassay which detects intact HCG and free beta HCG subunit. This test is not indicated for use as a tumor marker. HCG testing is performed using a different test methodology at [facility] than other [facility]. Direct result comparison should only be made within the same method. Performed By: #### 2 1198-7 ####JOLENE Cantu ([id number])[facility] ([facility])[address] [place] [address] Comprehensive metabolic 2000 panelon 12-07-2023 Albumin BCP dye [Mass/Vol] 4.1 g/dL Normal 3.4-5.0 [facility] Comment on above: Performed By: #### 2 4323-8 ####JOLENE Cantu ([id number])[facility] ([facility])[address] [place] [address] ALP [Catalytic activity/Vol] 76 U/L Normal 33-110 [facility] Comment on above: Performed By: #### 2 4323-8 ####JOLENE Cantu ([id number])[facility] ([facility])[address] [place] [address] ALT With P-5'-P [Catalytic activity/Vol] 32 U/L Normal 7-45 [facility] Comment on above: Result Comment: Katia ents treated with Sulfasalazine may generate falsely decreased results for ALT. Performed By: #### 2 4323-8 ####JOLENE Cantu ([id number])[facility] ([facility])[address] [place] [address] Anion gap [Moles/Vol] 12 mmol/L Normal 10-20 [facility] Comment on above: Performed By: #### 2 4323-8 ####JOLENE Cantu ([id number])[facility] ([facility])[address] [place] [address] AST With P-5'-P [Catalytic activity/Vol] 28 U/L Normal 9-39 [facility] Comment on above: Performed By: #### 2 4323-8 ####JOLENE Cantu ([id number])[facility] ([facility])[address] [place] [address] Bilirubin [Mass/Vol] 0.4 mg/dL Normal 0.0-1.2 [facility] Comment on above: Performed By: #### 2 4323-8 ####JOLENE Cantu (75088)[facility] ([facility])[address] [place] [address] Calcium [Mass/Vol] 8.8 mg/dL Normal 8.6-10.6 [facility] Comment on above: Performed By: #### 2 4323-8 ####JOLENE Cantu ([id number])[facility] ([facility])[address] [place] [address] Chloride [Moles/Vol] 104 mmol/L Normal 98-107 [facility] Comment on above: Performed By: #### 2 4323-8 ####JOLENE Cantu (36037)[facility] ([facility])[address] [place] [address] CO2 [Moles/Vol] 27 mmol/L Normal 21-32 [facility] Comment on above: Performed By: #### 2 4323-8 ####JOLENE Cantu ([id number])[facility] ([facility])[address] [place] [address] Creatinine [Mass/Vol] 0.81 mg/dL Normal 0.50-1.05 [facility] Comment on above: Performed By: #### 2 4323-8 ####JOLENE Cantu ([id number])[facility] ([facility])[address] [place] [address] GFR/1.73 sq M.predicted MDRD (S/P/Bld) [Vol rate/Area] mL/min/{1.73_m2} Normal >60 [facility] Comment on above: Result Comment: Calc ulations of estimated GFR are performed using the 2020 CKD-EPI Study Refit equation without the race variable for the IDMS-Traceable creatinine methods.https://jasn.asnjournals.org/content//A .7199540971 Performed By: #### 2 4323-8 ####JOLENE Cantu ([id number])[facility] ([facility])[address] [place] [address] Glucose [Mass/Vol] 98 mg/dL Normal 74-99 [facility] Comment on above: Performed By: #### 2 4323-8 ####JOLENE Cantu ([id number])[facility] ([facility])[address] [place] [address] Potassium [Moles/Vol] 3.6 mmol/L Normal 3.5-5.3 [facility] Comment on above: Performed By: #### 2 4323-8 ####JOLENE RONQUILLO L ([id number])[facility] ([facility])[address] [place] [address] Protein [Mass/Vol] 7.1 g/dL Normal 6.4-8.2 [facility] Comment on above: Performed By: #### 2 4323-8 ####JOLENE Cantu ([id number])[facility] ([facility])[address] [place] [address] Sodium [Moles/Vol] 139 mmol/L Normal 136-145 [facility] Comment on above: Performed By: #### 2 4323-8 ####JOLENE Cantu ([id number])[facility] ([facility])[address] [place] [address] Urea nitrogen [Mass/Vol] 12 mg/dL Normal 6-23 [facility] Comment on above: Performed By: #### 2 4323-8 ####JOLENE Cantu ([id number])[facility] ([facility])[address] [place] [address] ECG 12-LEADon 12-07-2023 ECG 12-LEAD Ventricular Rate 76 Atrial Rate 76 P-R Interval 140 QRS Duration 84 Q-T Interval 432 QTC Calculation(Bazett) 486 P Linden 60 R Linden 59 T Linden 61 QRS Count 13 Q Onset 217 P Onset 147 P Offset 205 T Offset 433 QTC Fredericia 467 Diagnosis Normal sinus rhythm Possible Left atrial enlargement Prolonged QT Abnormal ECG When compared with ECG of 06-DEC-2023 16:27, No significant change was found See ED provider note for full interpretation and clinical correlation Confirmed by Marquis Calderón ([id number]) on 12/07/2023 9:49:06 PM Normal [facility] Triacylglycerol lipaseon Lipase [Catalytic activity/Vol] 30 U/L Normal 9-82 [facility] Comment on above: Order Comment: Venip uncture immediately after or during the administration of Metamizole may lead to falsely low results. Testing should be performed immediately prior to Metamizole dosing. Performed By: #### 3 040-3 ####JOLENE Cantu ([id number])[facility] ([facility])[address] [place] [address] Troponin I.cardiac panelon 0 12-07-2023 Tropinin I.cardiac panel High sensitivity method <3 Normal 0-34 [facility] Comment on above: Order Comment: Less [...] is performed using a differenttesting methodology at [facility] than at [facility] facility. Direct result comparisons should onlybe made within the same method. Performed By: #### 8 9577-1 ####JOLENE Cantu ([id number])[facility] ([facility])[address] [place] [address] XR CHEST 2 VIEWSon 4 XR CHEST 2 VIEWS Normal [facility] ED Note-Physicianon 12-06-19 24 ED Note-Physician ED Note-Physician Basic Information Time Seen: Balbina Bryant M.D. 12/05/2023 19:02 Chief Complaint patient presents with surgical incision drainage and dehiscence that happened yesterday. denies fevers but experiencing nausea and chills. back surgery at [facility] 10/13 History of Present Illness The patient [...] and Complexity of Problems Differential Diagnosis: [] [facility] Data External documents reviewed: [] My EKG [...] Rosas In 3 days 12/08/2023 EDT [address], [facility] A [place] [id number]- Business (1) Additional Instructions: Make sure to [...] kennedi, Topi (more content not included)... Normal [facility] Comment on above: Result Comment: Elec tronically Signed By: Annette Watkins, Balbina Sparks\.br\Date and Time Signed: 12/06/23 02:02 EDT MR LUMBAR SPINE W AND WO IV CONTRASTon 12-06-2023 MR LUMBAR SPINE W AND WO IV CONTRAST Normal [facility] ED Clinical Summaryon 2023 ED Clinical Summary ED Clinical Summary [place] [id number] ED Clinical Summary Person Information Name: JERAD TRACY [place] Age: 48 Years : 1975 Sex: Female Language: Citizen Of [place] PCP: Cheyanne Rincon Marital Status: Visit Id: [...] 12/05/2023 19:40:10 12/05/2023 19:40:10 12/05/2023 19:40:10 ADDRESS: [address] [facility] [phone] PHYS DOC NOTES: MEDICAL INFORMATION: Prescriptions Given: [...] Wound Care, Adult Follow up: With: Address: Marty: Cheyanne Pots, [address], [address] [address] [employer] (1Induction Manager In 3 days 12/08/2023 Comments: Make sure to follow-up with your back surgeon as discussed. Return to the emergency room if there is drainage from the wound, redness around the edge of the wound, fever or any new symptoms. DIAGNOSIS: 1:Visit for wound check; 2:Chronic back pain; Other chronic pain Normal [facility] ED Patient Summaryon 024 ED Patient Summary ED Patient Summary [address] [address] Patient Discharge Instructions Person Information Name: JERAD TRACY Age: 48 Years Arrival Date: 12/05/2023 17:36:20 Discharge Diagnosis: 1:Visit for wound check; 2:Chronic back pain; Other chronic pain Primary Care Physician: Cheyanne Rincon Provider Information Primary Provider: Balbina Bryant M.D. [employer] Director:None The exam and treatment you received in the Emergency Department were for an urgent problem and are not intended as complete care. It is important that you follow up with a doctor, nurse practitioner, or physician?s dermatology physician assistant for ongoing care. If your symptoms [...] Follow-up Instructions: With: Address: When: Cheyanne Rosas [address] [place] [address], [address], [address] [address] Business (1) In 3 days 12/08/2023 Comments: [...] opioids can be used to help relieve qswicqyn-px-wlmixt pain and are often prescribed following a [...] Administration (www.fda.gov/Drugs/Re (more content not included)... Normal [facility] CT SPINE LUMBAR WITH CONTRAS Ton 12-04-2023 [...] consider dedicated adrenal imaging. Keke Beebe D.O.Workstation ID:[id number] Patient arrives ambulatory to triage with c/o back pain. Patient states she had a stimulator removed a month ago, just completed a 10 hour car ride and thinks that aggravated her back. A&Ox4. Normal [facility] IMPRESSION: 1. Nonspecific posterior lumbar subcutaneous fat stranding without discrete fluid collection. 2. 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 3. Incidental bilateral adrenal nodules (indeterminate on the basis of this examination); consider dedicated adrenal imaging. Keke Beebe D.O.Workstation ID:[id number] [facility] 12/04/2023 10:42 PM TECHNIQUE: CT SPINE LUMBAR WITH CONTRAST. INDICATION: BACK PAIN, . COMPARISON: None available. FINDINGS: Nonspecific stranding posterior lumbar subcutaneous fat. Moderate L4-5 degenerative disc disease, facet arthropathy, with central and bilateral neural foraminal stenoses. Anatomic alignment, preserved vertebral body height, and structurally intact posterior elements. Paraspinal soft tissues are otherwise unremarkable. Incidental bilateral adrenal nodules. [facility] SYSTEM[facility] Walker DO - 12/04/2023 12/04/2023 10:42 PM TECHNIQUE: [...] consider dedicated adrenal imaging. Keke Beebe D.O.Workstation ID:[id number] [employer] Radiology Study observation (narrative) [facility] CT SPINE LUMBAR WITH CONTRAS TOrdered By: Keke Beebe on 12-04-2023 [employer] Work Phone: ED NOTESon 12-04-2023 [facility] Ed Note ED Note: Last filed note HNO ID: [id number] Author: Cheyanne Powers RN Service: ? Author Type: Registered Nurse Filed: 12/04/23 2332 Note Text: Patient discharged to home, alert and oriented, skin warm, dry and pink. Denies needs and or questions. Will follow-up as directed, patient encouraged to return for worsening or new symptoms or other concerns. Normal [facility] Ed Note ED Note: Last filed note HNO ID: [id number] Author: Ilya Carrillo RN Service: ? Author Type: Registered Nurse Filed: 12/04/23 2240 Note Text: Pt to CT Normal [facility] ED PROVIDER NOTESon 12-04-19 [facility] Ed Provider Note ED Provider Note: Pepe blas filed note HNO ID: [id number] Author: Ben Urbina MD Service: Emergency Medicine [...] Her previous surgeries were done in the [place] area at the [facility]. Because of the severe pain [...] Ben Urbina MD, 12/04/2023 10:14 PM Normal [facility] Ed Provider Note ED Provider Note: Pepe ast filed note HNO ID: [id number] Author: Nighat Bailey PA-C Service: Emergency Medicine Author Type: Physician Septic Tank Setter Filed: 12/04/23 2318 Note Text: TRIAGE CHIEF COMPLAINT: Chief Complaint Patient presents with Back Pain HPI: Jerad Tracy is a 48 year old female who presents to the emergency department with back pain. Patient reports tonight when she was in a car driving back home from [place] to [place]. Started to have severe low back pain [...] with her spine surgeon Dr. Adams at [facility] in [place] this Saturday. Pain is 9/10. REVIEW OF [...] Resource Strain: Low Risk (11/17/2023) Received from [facility] Overall Financial Resource Strain (CARDIA) Difficulty of Paying Living Expenses: Not hard at all Food Insecurity: Patient Declined (10/11/2023) Received from [facility] Hunger Vital Sign Worried About Running Out of Food in the Last Year: Patient declined Ran Out of Food in the Last Year: Patient declined Transportation Needs: No Transportation Needs (11/17/2023) Received from [facility] PRAPARE - Transportation Lack of Transportation (Medical): No Lack of Transportation (Non-Medical): No Physical Activity: Patient Declined (10/11/2023) Received from [facility] Exercise Vital Sign Days of Exercise per Week: Patient declined Minutes of Exercise per Session: Patient declined Stress: Patient Declined (10/11/2023) Received from [facility] [employer] [place] [employer] - Occupational Stress Questionnaire Feeling of Stress : Patient declined Social Connections: Patient Declined (10/11/2023) Received from [facility] Social Connection and Isolation Panel [NHANES] Frequency of Communication with Friends and Family: Patient declined Frequency of Social Gatherings with Friends and Family: Patient declined Attends [employer] Services: Patient declined Active Member of Clubs or Organizations: Patient declined Attends Club or Organization Meetings: Patient declined Marital Status: Patient declined Intimate Partner Violence: Patient Declined (10/11/2023) Received from [facility] Humiliation, Afraid, Rape, and Kick questionnaire Fear of Current or Ex-Partner: Patient declined Emotionally Abused: Patient declined Physically Abused: Patient declined Sexually Abused: Patient declined Housing Stability: Low Risk (11/17/2023) Received from [facility] Housing Stability Vital Sign Unable to [...] SIGNS: Vitals: (more content not included)... Normal [facility] ED TRIAGEon 12-04-2023 [facility] Ed Triage Note ED Triage Note: Last filed note HNO ID: [id number] Author: Rebecca Gómez, RN Service: Emergency Medicine Author Type: Registered Nurse Filed: 12/04/23 3306 Note Text: Patient arrives ambulatory to triage with c/o back pain. Patient states she had a stimulator removed a month ago, just completed a 10 hour car ride and thinks that aggravated her back. A Normal [facility] CT abdomen pelvis w conon CT abdomen pelvis w con [facility] [place] [address] CT Scan Report Signed Patient: Jerad Tracy MR#: [id number] 49 : 1975 Acct:[id number] Age/Sex: 48 / F ADM Date: 12/01/23 Loc: ER Room: Type: [facility] ER Attending Dr: Copies to: Vlad [...] Idalia Juarez M.D.12/02/2023 8:41 AM Dictation Location: [place] [address] Transcribed By: [facility] 12/02/23 0841 Dictated By: Idalia Juarez MD 12/02/23 0826 Signed By: 12/02/23 0841 Normal [facility] US venous duplex LE RTon US venous duplex LE [facility] [place] [address] Ultrasound Report Signed Patient: Jerad Tracy MR#: [id number] 49 : 1975 Acct:[id number] Age/Sex: 48 / F ADM Date: 12/01/23 Loc: ER Room: Type: [facility] ER Attending Dr: Ordering Provider: Vlad M Tupa, DO Date of Service: 12/02/23 US/US venous [...] Declan Franco M.D.12/02/2023 9:08 AM Dictation Location: [place] [address] Tech: Abby Singh Transcribed By: BRYCE 12/02/23907 Dictated By: Declan Franco MD 12/02/23907 Signed By: 12/02/23907 Normal [facility] Alanine aminotransferase [En zymatic activity/volume] in Serum or PlasmaOrdered By: Vlad Bhandari on 12-01-2023 ALT [Catalytic activity/Vol] 22 U/L Normal [address] [place] [address] Comment on above: Performed By: #### U HCG, ADDONUAPLUS #### [address] ALT [Catalytic activity/Vol] Alanine aminotransferase [Enzymatic activity/volume] in Serum or Plasma [facility] Albumin [Mass/volume] in Ser um or Plasma by Bromocresol green (BCG) dye binding methoOrdered By: Vlad Bhandari on 12-01-2023 Albumin BCG dye [Mass/Vol] 3.9 g/dL 3.5-5.7 [facility] Albumin BCG dye [Mass/Vol] Albumin [Mass/volume] in Serum or Plasma by Bromocresol green (BCG) dye binding metho 3.5-5.7 [facility] Alkaline phosphatase [Enzyma tic activity/volume] in Serum or PlasmaOrdered By: Vlad Elisabet on 12-01-2023 ALP [Catalytic activity/Vol] 67 U/L Normal [facility] Comment on above: Performed By: #### U HCG, ADDONUAPLUS #### [facility] [address] ALP [Catalytic activity/Vol] Alkaline phosphatase [Enzymatic activity/volume] in Serum or Plasma [facility] Appearance of UrineOrdered B y: Vlad Bhandari on 12-01-2023 Appearance (U) Urine appearance Clear [facility] Aspartate aminotransferase [ Enzymatic activity/volume] in Serum or PlasmaOrdered By: Vlad Bhandari on 12-01-2023 AST [Catalytic activity/Vol] 24 U/L Normal [facility] Comment on above: Performed By: #### U HCG, ADDONUAPLUS #### [facility] [address] [place] [address] AST [Catalytic activity/Vol] Aspartate aminotransferase [Enzymatic activity/volume] in Serum or Plasma [facility] Automated basophil %Ordered By: Vlad Bhandari on 12-01-2023 Basophils/100 WBC (Bld) 0.3 % Normal . [facility] Comment on above: Performed By: #### U HCG, ADDONUAPLUS #### [facility] [address] [place] [address] Automated basophil countOrde red By: Vlad Bhandari on 12-01-2023 Basophils (Bld) [#/Vol] 0.0 10*3/uL Normal 0.0-0.2 [facility] Comment on above: Result Comment: PERF ORMED BY: [place] [address] PATHOLOGIST PILLOWCASE CUTTER JASON WILSON M.D. Performed By: #### U HCG, ADDONUAPLUS #### [facility] [address] [place] [address] Automated blood monocyte cou ntOrdered By: Vlad Bhandari on 12-01-2023 Monocytes (Bld) [#/Vol] 0.7 10*3/uL Normal 0.0-0.8 [facility] Comment on above: Performed By: #### U HCG, ADDONUAPLUS #### [facility] [address] [place] [address] Automated eosinophil %Ordere d By: Vlad Bhandari on 12-01-2023 Eosinophils/100 WBC (Bld) 3.3 % Normal . [facility] Comment on above: Performed By: #### U HCG, ADDONUAPLUS #### [address] Automated eosinophil countOr dered By: Vlad Bhandari on 12-01-2023 Eosinophils (Bld) [#/Vol] 0.3 10*3/uL Normal 0.0-0.45 [facility] Comment on above: Performed By: #### U HCG, ADDONUAPLUS #### [address] Automated monocyte %Ordered By: Vlad Bhandari on 12-01-2023 Monocytes/100 WBC (Bld) 7.8 % Normal . [facility] Comment on above: Performed By: #### U HCG, ADDONUAPLUS #### [address] Automated neutrophil %Ordere d By: Vlad Bhandari on 12-01-2023 Neutrophils/100 WBC (Bld) 61.5 % Normal . [facility] Comment on above: Performed By: #### U HCG, ADDONUAPLUS #### [facility] [address] [place] [address] [place] BMPon 12-01-2023 Anion gap [Moles/Vol] 9 mmol/L Normal 6-16 [facility] Comment on above: Performed By: #### 2 903254 #### [facility] [address] [place] [address] Calcium [Mass/Vol] 8.8 mg/dL Low 8.9-11.1 [facility] Comment on above: Performed By: #### 2 536149 #### [facility] [address] [place] [address] Chloride [Moles/Vol] 107 mmol/L Normal 101-111 [facility] Comment on above: Performed By: #### 2 933042 #### [facility] [address] [place] [address] CO2 [Moles/Vol] 28 mmol/L Normal 21-31 [facility] Comment on above: Performed By: #### 2 659080 #### [facility] [address] [place] [address] Creatinine [Mass/Vol] 0.7 mg/dL Normal 0.5-1.3 [facility] Comment on above: Performed By: #### 2 451911 #### [facility] [address] [place] [address] Glucose [Mass/Vol] 101 mg/dL Normal 55-199 [facility] Comment on above: Performed By: #### 2 293828 #### [facility] [address] [place] [address] Potassium [Moles/Vol] 3.4 mmol/L Low 3.5-5.3 [facility] Comment on above: Performed By: #### 2 658623 #### [facility] [address] [place] [address] Sodium [Moles/Vol] 141 mmol/L Normal 135-145 [facility] Comment on above: Performed By: #### 2 921360 #### [facility] [address] [place] [address] Urea nitrogen [Mass/Vol] 12 mg/dL Normal 5-21 [facility] Comment on above: Performed By: #### 2 237550 #### [facility] [address] [place] [address] Urea nitrogen/Creatinine [Mass ratio] 17 No Units Normal 10-20 [facility] Comment on above: Performed By: #### 2 203015 #### [facility] [address] [place] [address] Bacteria [Presence] in Urine by AutomatedOrdered By: Vlad Bhandari on 12-01-2023 Bacteria Auto Ql (U) None seen [HPF] None Seen [facility] Bacteria Auto Ql (U) Bacteria [Presence] in Urine by Automated None Seen [facility] Basic Metabolic Panelon Creatinine Clr Calc Pharmacy 116.43 Normal [facility] Comment on above: Performed By: #### U HCG, ADDONUAPLUS #### [facility] [address] GFR/1.73 sq M.predicted MDRD (S/P/Bld) [Vol rate/Area] mL/min/{1.73_m2} Normal [facility] Comment on above: Performed By: #### U HCG, ADDONUAPLUS #### [facility] [address] Basophils Auto (Bld) [#/Vol] Ordered By: Vlad Bhandari on 12-01-2023 Basophils (Bld) [#/Vol] Automated basophil count 0.0-0.2 [facility] Basophils/100 WBC Auto (Bld) Ordered By: Vlad Bhandari on 12-01-2023 Basophils/100 WBC (Bld) Automated basophil % . [facility] Bilirubin Test strip Ql (U)O rdered By: Vlad Bhandari on 12-01-2023 Bilirubin Ql (U) Negative Negative [facility] Bilirubin Ql (U) Bilirubin.total [Presence] in Urine by Test strip Negative [facility] Bilirubin.direct [Mass/volum e] in Serum or PlasmaOrdered By: Vlad Bhandari on 12-01-2023 Bilirubin.direct [Mass/Vol] 0.00 mg/dL Low 0.03-0.18 [facility] Comment on above: If the DBIL is less than 0.1, IBIL is not able to becalculated. Bilirubin.direct [Mass/Vol] Bilirubin.direct [Mass/volume] in Serum or Plasma Low 0.03-0.18 [facility] Comment on above: If the DBIL is less than 0.1, IBIL is not able to becalculated. Bilirubin.total [Mass/volume ] in Serum or PlasmaOrdered By: Vlad Bhandari on 12-01-2023 Bilirubin [Mass/Vol] 0.3 mg/dL Normal 0.3-1.0 [facility] Comment on above: Performed By: #### U HCG, ADDONUAPLUS #### [facility] [address] [place] [id number] [facility] Bilirubin [Mass/Vol] Bilirubin.total [Mass/volume] in Serum or Plasma 0.3-1.0 [facility] CBC w/ Auto Diffon 4 Basophils/100 WBC (Bld) 0.2 % Normal 0.0-2.0 [facility] Comment on above: Performed By: #### 2 [id number] #### [facility] [address] [place] [address] Basophils/Leukocytes Auto (Bld) [Pure # fraction] 0.0 E9/L Normal 0.0-0.2 [facility] Comment on above: Performed By: #### 2 [id number] #### [facility] [address] [place] [address] Eosinophils (Bld) [#/Vol] 0.3 E9/L Normal 0.0-0.5 [facility] Comment on above: Performed By: #### 2 [id number] #### [facility] [address] [place] [address] Eosinophils/100 WBC (Bld) 3.1 % Normal 0.0-8.0 [facility] Comment on above: Performed By: #### 2 [id number] #### [facility] [address] [place] [address] Erythrocyte distribution width (RBC) [Ratio] 14.1 % Normal 10.9-14.2 [facility] Comment on above: Performed By: #### 2 [id number] #### [facility] [address] [place] [address] Hematocrit (Bld) [Volume fraction] 35.4 % Normal 34.0-46.0 [facility] Comment on above: Performed By: #### 2 [id number] #### [facility] [address] [place] [address] Hemoglobin (Bld) [Mass/Vol] 12.1 g/dL Normal 12.0-16.0 [facility] Comment on above: Performed By: #### 2 [id number] #### [facility] [address] [place] [address] Lymphocytes (Bld) [#/Vol] 1.9 E9/L Normal 1.0-4.0 [facility] Comment on above: Performed By: #### 2 [id number] #### [facility] [address] [place] [address] Lymphocytes/100 WBC (Bld) 20.2 % Normal 14.0-50.0 [facility] Comment on above: Performed By: #### 2 [id number] #### [facility] [address] [place] [address] MCH (RBC) [Entitic mass] 31.9 pg Normal 27.0-34.0 [facility] Comment on above: Performed By: #### 2 [id number] #### [facility] [address] [place] [address] MCHC (RBC) [Mass/Vol] 34.3 g/dL Normal 31.4-36.0 [facility] Comment on above: Performed By: #### 2 [id number] #### [facility] [address] [place] [address] MCV (RBC) [Entitic vol] 93.0 fL Normal 80.0-100.0 [facility] Comment on above: Performed By: #### 2 585554 #### [facility] [address] [place] [address] Monocytes (Bld) [#/Vol] 0.6 E9/L Normal 0.2-1.0 [facility] Comment on above: Performed By: #### 2 838504 #### [facility] [address] [place] [address] Neutrophils (Bld) [#/Vol] 6.8 E9/L Normal 2.0-7.5 [facility] Comment on above: Performed By: #### 2 [id number] #### [facility] [address] [place] [address] Neutrophils/100 WBC (Bld) 70.4 % Normal 36.0-75.0 [facility] Comment on above: Performed By: #### 2 874293 #### [facility] [address] [place] [address] Platelet 352.0 E9/L Normal 150.0-500.0 [facility] Comment on above: Performed By: #### 2 [id number] #### [facility] [address] [place] [address] Platelet mean volume (Bld) [Entitic vol] 7.6 fL Normal 6.4-10.8 [facility] Comment on above: Performed By: #### 2 882250 #### [facility] [address] [place] [address] RBC (Bld) [#/Vol] 3.8 E12/L Low 4.3-5.9 [facility] Comment on above: Performed By: #### 2 566167 #### [facility] [address] [place] [address] WBC corrected for nucl RBC Auto (Bld) [#/Vol] 9.6 E9/L Normal 4.0-11.0 [facility] Comment on above: Performed By: #### 2 512201 #### [facility] [address] [place] [address] CHEMISTRYOrdered By: SYSTEM SYSTEM on 12-01-2023 ALP [...] Katlyn Edson, October 2017) Urea nitrogen [Mass/Vol] 12 mg/dL [...] Oral contrast amount in ml's: 0 Normal [facility] Calcium [Mass/volume] in Ser um or PlasmaOrdered By: Vlad Bhandari on 12-01-2023 Calcium [Mass/Vol] 8.6 mg/dL Normal 8.6-10.3 [facility] Comment on above: Performed By: #### U HCG, ADDONUAPLUS #### [facility] [address] Calcium [Mass/Vol] Calcium [Mass/volume ] in Serum or Plasma 8.6-10.3 [facility] Calcium oxalate crystals [Pr esence] in Urine by Computer assisted methodOrdered By: Vlad Bhandari on 12-01-2023 Calcium oxalate crystals Computer assisted Ql (U) 3+ [HPF] [facility] Calcium oxalate crystals Computer assisted Ql (U) Calcium oxalate crystals [Presence] in Urine by Computer assisted method [facility] Carbon dioxide, total [Moles /volume] in Serum or PlasmaOrdered By: Vlad Bhandari on 12-01-2023 CO2 [Moles/Vol] 24.9 mmol/L Normal 21.0-31.[address] [facility] Comment on above: Performed By: #### U HCG, ADDONUAPLUS #### [address] CO2 [Moles/Vol] Carbon dioxide, tota l [Moles/volume] in Serum or Plasma 21.0-31.0 [facility] Chloride [Moles/volume] in S saw or PlasmaOrdered By: Vlad Bhandari on 12-01-2023 Chloride [Moles/Vol] 108 mmol/L High 98-[address] [place] [address] Comment on above: Performed By: #### U HCG, ADDONUAPLUS #### [facility] [address] [place] [address] Chloride [Moles/Vol] Chloride [Moles/vol ume] in Serum or Plasma High 98-107 [facility] Color Auto (U)Ordered By: Joon Bhandari on 12-01-2023 Color (U) Color of Urine by Auto Yellow [facility] Color of Urine by AutoOrdere d By: Vlad Bhandari on 12-01-2023 Color (U) Yellow Normal Yellow [facility] Comment on above: Order Comment: Name Collection Type:: Clean-Voided Midstream Performed By: #### U HCG, ADDONUAPLUS #### [address] Complete Blood Count Auto Di ffon 12-01-2023 Mean Corpuscular HGB Conc 33.5 g/dL Normal 32.0-35.0 [facility] Comment on above: Performed By: #### U HCG, ADDONUAPLUS #### [facility] [address] [place] [address] [place] Monocytes/100 WBC (Bld) 24.15 % High 0.00-20.00 [facility] Comment on above: Result Comment: For adults in ED, MDW > 20.0 may be associated with a higher risk of sepsis during the first 12 hrs of hospital admission Performed By: #### U HCG, ADDONUAPLUS #### [facility] [address] NRBC% 0.0 /100{WBC} Normal 0-0.5 [facility] Comment on above: Performed By: #### U HCG, ADDONUAPLUS #### [place] [address] [place] Creatinine [Mass/volume] in Serum or PlasmaOrdered By: Vlad Bhandari on 12-01-2023 Creatinine [Mass/Vol] 0.74 mg/dL Normal 0.60-1.20 [facility] Comment on above: Performed By: #### U HCG, ADDONUAPLUS #### [place] [address] [place] Creatinine [Mass/Vol] Creatinine [Mass/volume] in Serum or Plasma 0.60-1.20 [facility] Dipstick and Microscopicon 0 12-01-2023 Bacteria,Urine None Seen Normal None Seen [facility] Comment on above: Order Comment: Name Collection Type:: Clean-Voided Midstream Performed By: #### U HCG, ADDONUAPLUS #### [facility] [address] [place] [address] [place] Bilirubin,Urine Negative Normal Negative [facility] Comment on above: Order Comment: Name Collection Type:: Clean-Voided Midstream Performed By: #### U HCG, ADDONUAPLUS #### [address] Calcium Oxalate Crystals,Urine 3+ Normal [facility] Comment on above: Order Comment: Name Collection Type:: Clean-Voided Midstream Performed By: #### U HCG, ADDONUAPLUS #### [facility] [address] Glucose Ql (U) Normal Normal Normal [facility] Comment on above: Order Comment: Name Collection Type:: Clean-Voided Midstream Performed By: #### U HCG, ADDONUAPLUS #### [facility] [address] [place] [address] [place] Hyaline Casts,Urine 0-8 Normal 0-8 [facility] Comment on above: Order Comment: Name Collection Type:: Clean-Voided Midstream Performed By: #### U HCG, ADDONUAPLUS #### [place] [address] [place] Mucus,Urine 2+ Critically abnormal [facility] Comment on above: Order Comment: Name Collection Type:: Clean-Voided Midstream Performed By: #### U HCG, ADDONUAPLUS #### [facility] [address] [place] [address] [place] Nitrite,Urine Negative Normal Negative [facility] Comment on above: Order Comment: Name Collection Type:: Clean-Voided Midstream Performed By: #### U HCG, ADDONUAPLUS #### [facility] [address] [place] [address] [place] Occult Blood,Urine Negative Normal Negative [facility] Comment on above: Order Comment: Name Collection Type:: Clean-Voided Midstream Performed By: #### U HCG, ADDONUAPLUS #### [facility] [address] [place] [address] [place] Protein,Urine Trace High Negative [facility] Comment on above: Order Comment: Name Collection Type:: Clean-Voided Midstream Performed By: #### U HCG, ADDONUAPLUS #### [facility] [address] [place] [address] [place] RBC,Urine 1-2 Normal 0-4 [facility] Comment on above: Order Comment: Name Collection Type:: Clean-Voided Midstream Performed By: #### U HCG, ADDONUAPLUS #### [facility] [address] Renal Epithelial Cells,Urine 1-2 High 0-1 [facility] Comment on above: Order Comment: Name Collection Type:: Clean-Voided Midstream Performed By: #### U HCG, ADDONUAPLUS #### [facility] [address] [place] [address] Specificy Jamul,Urine 1.026 Normal 1.001-1.030 [facility] Comment on above: Order Comment: Name Collection Type:: Clean-Voided Midstream Performed By: #### U HCG, ADDONUAPLUS #### [facility] [address] [place] [address] Squamous Epithelial Cell,Urine 10-19 High 0-2 [facility] Comment on above: Order Comment: Name Collection Type:: Clean-Voided Midstream Performed By: #### U HCG, ADDONUAPLUS #### [facility] [address] [place] [address] Urobilinogen,Urine 3 mg/dL High Normal [facility] Comment on above: Order Comment: Name Collection Type:: Clean-Voided Midstream Performed By: #### U HCG, ADDONUAPLUS #### [facility] [address] [place] [address] WBC,Urine 1-2 Normal 0-4 [facility] Comment on above: Order Comment: Name Collection Type:: Clean-Voided Midstream Performed By: #### U HCG, ADDONUAPLUS #### [facility] [address] [place] [address] ED Clinical Summaryon 2023 ED Clinical Summary ED Clinical Summary [place] [address] ED Clinical Summary Person Information Name: JERAD TRACY [place] Age: 48 Years : 1975 Sex: Female Language: Citizen Of [place] PCP: Cheyanne Rincon Marital Status: Visit Id: [...] 12/01/2023 14:28:11 12/01/2023 14:28:11 12/01/2023 14:28:11 ADDRESS: [address] [place] [address] [id number] [facility] DOC NOTES: MEDICAL INFORMATION: Prescriptions Given: [...] EDUCATION INFORMATION: Instructions: Hypokalemia; Flank Pain, Adult, Mrso-vo-Tqxv; Abdominal Pain, Adult, Kjfb-ys-Ogpw Follow up: With: Address: When: [address], [address], [place] [phone] Business (1) In 3 days 12/04/2023 DIAGNOSIS: 1:Hypokalemia; 2:Flank pain Normal [facility] ED Note-Nursingon 12-01-2023 ED Note-Nursing ED Note-Nursing Pt requesting pain medication, GINGER Weinstein aware. No further orders at this time. Normal [facility] ED Note-Physicianon 12-01-19 ED Note-Physician ED Note-Physician [...] stable condition. She is to return to t (more content not included)... Normal [facility] Comment on above: Result Comment: Elec tronically Signed By: Kristie Boss PA-C\.br\Date and Time Signed: 12/01/23 14:25 EDT\.br\Electronically Co-Signed By: Balbina Bryant M.D.\.br\Date and Time Co-Signed: 12/01/23 19:41 EDT ED Patient Summaryon 024 ED Patient Summary ED Patient Summary [address] [address] Patient Discharge Instructions Person Information Name: JERAD TRACY Age: 48 Years Arrival Date: 12/01/2023 11:42:40 Discharge Diagnosis: 1:Hypokalemia; 2:Flank pain Primary Care Physician: Cheyanne Rincon Provider Information Primary Provider: Balbina Bryant M.D. [employer] Director:None The exam and treatment you received in the Emergency Department were for an urgent problem and are not intended as complete care. It is important that you follow up with a doctor, nurse practitioner, or physician?s dermatology physician assistant for ongoing care. If your symptoms [...] Instructions: With: Address: When: Cheyanne Rosas [address] [facility] [address], [place] [phone] Business (1) In 3 days 12/04/2023 In the event that this physician does not participate in your insurance network, please consult with your insurance company to find a nearby participating provider. Patient Education Materials: Hypokalemia; Flank Pain, Adult, Pgiu-po-Brzf; Abdominal Pain, Adult, Opzk-wq-Kvgn A MESSAGE TO ALL PATIENTS REGARDING OPIOIDS PRESCRIPTION OPIOIDS: WHAT YOU NEED TO KNOW Prescription opioids can be used to help relieve fbtezvmp-ps-tpifjv pain and are often prescribed following a [...] from the Food and Drug Administration (www.fda.gov/Drugs/Reso Juan Miguelu). ? Visit www.cdc.gov/drugoverdos e to learn about the risks of opioids abuse and overdose. ? If you believe you may be struggling with addiction, tell your health technical healthcare consultant (more content not included)... Normal [facility] Eosinophils Auto (Bld) [#/Vo l]Ordered By: Vlad Bhandari on 12-01-2023 Eosinophils (Bld) [#/Vol] Automated eosinophil count 0.0-0.45 [facility] Eosinophils/100 WBC Auto (Bl d)Ordered By: Vlad Bhandari on 12-01-2023 Eosinophils/100 WBC (Bld) Automated eosinophil % . [facility] Epithelial cells.renal [#/ar ea] in Urine by Computer assisted methodOrdered By: Vlad Bhandari on 12-01-2023 Epithelial cells.renal Computer assisted (U) [#/Area] 1-2 [HPF] High 0-1 [facility] Epithelial cells.renal Computer assisted (U) [#/Area] Epithelial cells.renal [#/area] in Urine by Computer assisted method High 0-1 [facility] Epithelial cells.squamous [# /area] in Urine sediment by Automated countOrdered By: Vlad Bhandari on 12-01-2023 Epithelial cells.squamous Auto (Urine sed) [#/Area] 10-19 [HPF] High 0-2 [facility] Epithelial cells.squamous Auto (Urine sed) [#/Area] Epithelial cells.squamous [#/area] in Urine sediment by Automated count High 0-2 [facility] Erythrocyte distribution wid th Auto (RBC) [Ratio]Ordered By: Vlad Bhandari on 12-01-2023 Erythrocyte distribution width (RBC) [Ratio] Erythrocyte distribution width [Ratio] by Automated count 11.9-15.3 [facility] Erythrocyte distribution wid th [Ratio] by Automated countOrdered By: SYSTEM SYSTEM on 12-01-2023 Erythrocyte distribution width (RBC) [Ratio] 14.1 % Normal 11.9-15.3 [facility] Comment on above: Performed By: #### U HCG, ADDONUAPLUS #### [facility] [address] Erythrocytes [#/area] in Uri ne sediment by Automated countOrdered By: Vlad Bhandari on 12-01-2023 RBC Auto (Urine sed) [#/Area] 1-2 [HPF] 0-4 [facility] RBC Auto (Urine sed) [#/Area] Erythrocytes [#/area] in Urine sediment by Automated count 0-4 [facility] Erythrocytes [#/volume] in B lood by Automated countOrdered By: Vlad Bhandari on 12-01-2023 RBC (Bld) [#/Vol] 3.84 10*6/uL Normal 3.60-5.[address] [facility] Comment on above: Performed By: #### U HCG, ADDONUAPLUS #### [address] Globulin Calc (S) [Mass/Vol] Ordered By: Vlad Bhandari on 12-01-2023 Globulin (S) [Mass/Vol] Serum globulin measurement by calculation (mass/volume) [facility] Glucose [Mass/volume] in Ser um or PlasmaOrdered By: Vlad Bhandari on 12-01-2023 Glucose [Mass/Vol] 104 mg/dL High 70-100 [facility] Comment on above: ADA recommended refe rence rangeRandom Glucose Reference Range is dependent on time and content of last meal. Glucose of more than 200 mg/dL in a nonstressed, ambulatory subject supports the diagnosis of Diabetes Mellitus. Result Comment: [place] om Glucose Reference Range is dependent on time and content of last meal. Glucose of more than 200 mg/dL in a nonstressed, ambulatory subject supports the diagnosis of Diabetes Mellitus. ADA recommended reference range Performed By: #### U HCG, ADDONUAPLUS #### [address] Glucose [Mass/Vol] Glucose [Mass/volume ] in Serum or Plasma High 70-100 [facility] Comment on above: ADA recommended refe rence rangeRandom Glucose Reference Range is dependent on time and content of last meal. Glucose of more than 200 mg/dL in a nonstressed, ambulatory subject supports the diagnosis of Diabetes Mellitus. Glucose [Mass/volume] in Uri ne by Test stripOrdered By: Vlad Bhandari on 12-01-2023 Glucose Test strip (U) [Mass/Vol] Normal mg/dL Normal [facility] Glucose Test strip (U) [Mass/Vol] Glucose [Mass/volume] in Urine by Test strip Normal [facility] HCG ( test) IA.rapi d Ql (U)Ordered By: Vlad Bhandari on 12-01-2023 HCG ( test) Ql (U) Negative [facility] HCG ( test) Ql (U) Urine human chorionic gonadotropin (hCG) detection by immunoassay [facility] HCG,Urineon 12-01-2023 Beta HCG ( test) Ql (U) Negative Normal [facility] Comment on above: Order Comment: Name Collection Type:: Clean-Voided Midstream Result Comment: PERF ORMED BY: [place] [address] PATHOLOGIST PILLOWCASE CUTTER JASNO WILSON M.D. Performed By: #### U HCG, ADDONUAPLUS #### [address] HEMATOLOGYOrdered By: SYSTEM SYSTEM on 12-01-2023 [...] Fraction] of Blood by Automated count 34.0-46.4 [facility] Hematocrit [Volume Fraction] of Blood by Automated countOrdered By: Vlad Bhandari on 12-01-2023 Hematocrit (Bld) [Volume fraction] 35.8 % Normal 34.0-46.4 [facility] Comment on above: Performed By: #### U HCG, ADDONUAPLUS #### [facility] [address] [place] [address] Hemoglobin Test strip Ql (U) Ordered By: Vlad Bhandari on 12-01-2023 Hemoglobin Ql (U) Negative Negative [facility] Hemoglobin Ql (U) Hemoglobin [Presence ] in Urine by Test strip Negative [facility] Hemoglobin [Mass/volume] in BloodOrdered By: Vlad Bhandari on 12-01-2023 Hemoglobin (Bld) [Mass/Vol] 12.0 g/dL Normal 11.8-15.4 [facility] Comment on above: Performed By: #### U HCG, ADDONUAPLUS #### [facility] [address] [place] [address] Hemoglobin (Bld) [Mass/Vol] Hemoglobin [Mass/volume] in Blood 11.8-15.4 [facility] Hep Func Panelon 12-01-2023 Albumin [Mass/Vol] 3.9 g/dL Normal 3.3-5.0 [facility] Comment on above: Performed By: #### 2 [id number] #### [facility] [address] [place] [address] Albumin/Globulin (S) [Mass conc ratio] 1.3 Normal 1.1-2.2 [facility] Comment on above: Performed By: #### 2 [id number] #### [facility] [address] [place] [address] ALP [Catalytic activity/Vol] 70 Int._Unit/L Normal 21-98 [facility] Comment on above: Performed By: #### 2 [id number] #### [facility] [address] [place] [address] ALT No additional P-5'-P [Catalytic activity/Vol] 23 Int._Unit/L Normal 6-46 [facility] Comment on above: Performed By: #### 2 [id number] #### [facility] [address] [place] [address] AST [Catalytic activity/Vol] 24 Int._Unit/L Normal 5-43 [facility] Comment on above: Performed By: #### 2 [id number] #### [facility] [address] [place] [address] Bilirubin [Mass/Vol] 0.4 mg/dL Normal 0.0-1.1 [facility] Comment on above: Performed By: #### 2 [id number] #### [facility] [address] [place] [address] Bilirubin.direct [Mass/Vol] 0.1 mg/dL Normal 0.0-0.4 [facility] Comment on above: Performed By: #### 2 [id number] #### [facility] [address] [place] [address] Bilirubin.indirect [Mass or moles/Vol] 0.3 mg/dL Normal 0.1-0.9 [facility] Comment on above: Performed By: #### 2 [id number] #### [facility] [address] [place] [address] Globulin (S) [Mass/Vol] 3.1 g/dL Normal 1.4-4.0 [facility] Comment on above: Performed By: #### 2 [id number] #### [facility] [address] [place] [address] Protein [Mass/Vol] 7.0 g/dL Normal 6.0-7.8 [facility] Comment on above: Performed By: #### 2 [id number] #### [facility] [address] [place] [address] Hepatic Panelon 12-01-2023 Bilirubin,Indirect 0.3 mg/dL Normal [facility] Comment on above: Performed By: #### U HCG, ADDONUAPLUS #### [facility] [address] Bilirubin.indirect [Mass/Vol] 0.00 mg/dL Low 0.03-0.18 [facility] Comment on above: Result Comment: If t he DBIL is less than 0.1, IBIL is not able to be calculated. Performed By: #### U HCG, ADDONUAPLUS #### [facility] [address] Hepatic PanelOrdered By: SYS TEM SYSTEM on 12-01-2023 Albumin [Mass/Vol] 3.9 g/dL Normal 3.5-5.7 [facility] Comment on above: Performed By: #### U HCG, ADDONUAPLUS #### [facility] [address] Hyaline casts [#/area] in Ur ine sediment by Automated countOrdered By: Vlad Bhandari on 12-01-2023 Hyaline casts Auto (Urine sed) [#/Area] 0-8 [LPF] 0-8 [facility] Hyaline casts Auto (Urine sed) [#/Area] Hyaline casts [#/area] in Urine sediment by Automated count 0-8 [facility] Ketones Test strip Ql (U)Ord ered By: Vlad Bhandari on 12-01-2023 Ketones Ql (U) Ketones [Presence] i n Urine by Test strip Negative [facility] Ketones [Presence] in Urine by Test stripOrdered By: Vlad Bhandari on 12-01-2023 Ketones Ql (U) Negative Normal Negative [facility] Comment on above: Order Comment: Name Collection Type:: Clean-Voided Midstream Performed By: #### U HCG, ADDONUAPLUS #### [place] [address] [place] Lactic Acidon 12-01-2023 Lactic Acid Lvl 0.7 mmol/L Normal 0.5-2.2 [facility] Comment on above: Performed By: #### 2 [id number] #### [facility] [address] [place] [address] Leukocyte esterase [Presence ] in Urine by Test stripOrdered By: Vlad Bhandari on 12-01-2023 Leukocyte esterase Test strip Ql (U) Negative Normal Negative [facility] Comment on above: Order Comment: Name Collection Type:: Clean-Voided Midstream Performed By: #### U HCG, ADDONUAPLUS #### [address] [place] [address] [facility] Leukocyte esterase Test strip Ql (U) Leukocyte esterase [Presence] in Urine by Test strip Negative [facility] Leukocytes [#/area] in Urine sediment by Automated countOrdered By: Vlad Bhandari on 12-01-2023 WBC Auto (Urine sed) [#/Area] 1-2 [HPF] 0-4 [facility] WBC Auto (Urine sed) [#/Area] Leukocytes [#/area] in Urine sediment by Automated count 0-4 [facility] Leukocytes [#/volume] correc lisa for nucleated erythrocytes in Blood by Automated counOrdered By: Vlad Bhandari on 12-01-2023 WBC corrected for nucl RBC Auto (Bld) [#/Vol] 8.8 10*3/uL 3.8-11.6 [facility] WBC corrected for nucl RBC Auto (Bld) [#/Vol] Leukocytes [#/volume] corrected for nucleated erythrocytes in Blood by Automated coun 3.8-11.6 [facility] Leukocytes [#/volume] in Blo od by Automated countOrdered By: Vlad Bhandari on 12-01-2023 WBC (Bld) [#/Vol] 8.8 10*3/uL Normal 3.8-11.6 [facility] Comment on above: Performed By: #### U HCG, ADDONUAPLUS #### [facility] [address] [id number] [facility] Lipase Levelon 12-01-2023 Lipase [Catalytic activity/Vol] 24 U/L Normal 13-58 [facility] Comment on above: Performed By: #### 2 [id number] #### [facility] [address] [place] [id number] Lipase [Enzymatic activity/v olume] in Serum or PlasmaOrdered By: Vlad Bhandari on 12-01-2023 Lipase [Catalytic activity/Vol] 23.0 U/L Normal 11.0-82.0 [facility] Comment on above: Result Comment: PERF ORMED BY: [facility] [address] [place] [address] PATHOLOGIST PILLOWCASE CUTTER JIANLAN SUN M.D. Performed By: #### U HCG, ADDONUAPLUS #### [facility] [address] [place] [address] Lipase [Catalytic activity/Vol] Lipase [Enzymatic activity/volume] in Serum or Plasma 11.0-82.0 [facility] Lymphocytes Auto (Bld) [#/Vo l]Ordered By: Vlad Bhandari on 12-01-2023 Lymphocytes (Bld) [#/Vol] Lymphocytes [#/volume] in Blood by Automated count 1.00-4.8 [facility] Lymphocytes [#/volume] in Bl ood by Automated countOrdered By: Vlad Bhandari on 12-01-2023 Lymphocytes (Bld) [#/Vol] 2.4 10*3/uL Normal 1.00-4.8 [facility] Comment on above: Performed By: #### U HCG, ADDONUAPLUS #### [address] Lymphocytes/100 WBC Auto (Bl d)Ordered By: Vlad Bhandari on 12-01-2023 Lymphocytes/100 WBC (Bld) Lymphocytes/100 leukocytes in Blood by Automated count . [facility] Lymphocytes/100 leukocytes i n Blood by Automated countOrdered By: Vlad Bhandari on 12-01-2023 Lymphocytes/100 WBC (Bld) 27.1 % Normal . [facility] Comment on above: Performed By: #### U HCG, ADDONUAPLUS #### [address] MCH Auto (RBC) [Entitic mass ]Ordered By: Vlad Bhandari on 12-01-2023 MCH (RBC) [Entitic mass] MCH [Entitic mass] by Automated count 24.7-34.3 [facility] MCH [Entitic mass] by Automa lisa countOrdered By: Vlad Bhandari on 12-01-2023 MCH (RBC) [Entitic mass] 31.2 pg Normal 24.7-34.3 [facility] Comment on above: Performed By: #### U HCG, ADDONUAPLUS #### [address] MCHC Auto (RBC) [Mass/Vol]Or dered By: Vlad Bhandari on 12-01-2023 MCHC (RBC) [Mass/Vol] 33.5 g/dL 32.0-35.0 [facility] MCHC (RBC) [Mass/Vol] MCHC [Mass/volume] by Automated count 32.0-35.0 [facility] MCV Auto (RBC) [Entitic vol] Ordered By: Vlad Bhandari on 12-01-2023 MCV (RBC) [Entitic vol] MCV [Entitic volume] by Automated count 80-100 [facility] MCV [Entitic volume] by Auto mated countOrdered By: Vlad Bhandari on 12-01-2023 MCV (RBC) [Entitic vol] 93.2 fL Normal 80-100 [facility] Comment on above: Performed By: #### U HCG, ADDONUAPLUS #### [address] Monocyte distribution width [Entitic volume] in Blood by AutomatedOrdered By: Vlad Bhandari on 12-01-2023 Monocyte distribution width Auto (Bld) [Entitic vol] 24.15 % High 0.00-20.00 [facility] Comment on above: For adults in ED, MD W > 20.0 may be associated with a higher risk of sepsis during the first 12 hrs of hospital admission Monocyte distribution width Auto (Bld) [Entitic vol] Monocyte distribution width [Entitic volume] in Blood by Automated High 0.00-20.00 [facility] Comment on above: For adults in ED, MD W > 20.0 may be associated with a higher risk of sepsis during the first 12 hrs of hospital admission Monocytes Auto (Bld) [#/Vol] Ordered By: Vlad Bhandari on 12-01-2023 Monocytes (Bld) [#/Vol] Automated blood monocyte count 0.0-0.8 [facility] Monocytes/100 WBC Auto (Bld) Ordered By: Vlad Bhandari on 12-01-2023 Monocytes/100 WBC (Bld) Automated monocyte % . [facility] Mucus [Presence] in Urine by AutomatedOrdered By: Vlad Bhandari on 12-01-2023 Mucus Auto Ql (U) 2+ [LPF] Abnormal [facility] Mucus Auto Ql (U) Mucus [Presence] in Urine by Automated Abnormal [facility] Neutrophils Auto (Bld) [#/Vo l]Ordered By: Vlad Bhandari on 12-01-2023 Neutrophils (Bld) [#/Vol] Neutrophils [#/volume] in Blood by Automated count 1.8-7.7 [facility] Neutrophils [#/volume] in Bl ood by Automated countOrdered By: Vlad Bhandari on 12-01-2023 Neutrophils (Bld) [#/Vol] 5.4 10*3/uL Normal 1.8-7.7 [facility] Comment on above: Performed By: #### U HCG, ADDONUAPLUS #### [facility] [address] Neutrophils/100 WBC Auto (Bl d)Ordered By: Vlad Bhandari on 12-01-2023 Neutrophils/100 WBC (Bld) Automated neutrophil % . [facility] Nitrite Test strip Ql (U)Ord ered By: Vlad Bhandari on 12-01-2023 Nitrite Ql (U) Negative Negative [facility] Nitrite Ql (U) Nitrite [Presence] i n Urine by Test strip Negative [facility] No Panel InformationOrdered By: Vlad Bhandari on 12-01-2023 Estimated GFR (CKD-EPI) > 60.0 mL/Min [facility] Creatinine Clearance (Chem 116.43 [facility] Nucleated erythrocytes [Pres ence] in Blood by Automated countOrdered By: Vlad Bhandari on 12-01-2023 Nucleated RBC Auto Ql (Bld) 0.0 /100{WBC} 0-0.5 [facility] Nucleated RBC Auto Ql (Bld) Nucleated erythrocytes [Presence] in Blood by Automated count 0-0.5 [facility] Platelet mean volume Auto (B ld) [Entitic vol]Ordered By: Vlad Bhandari on 12-01-2023 Platelet mean volume (Bld) [Entitic vol] Platelet mean volume [Entitic volume] in Blood by Automated count 6.3-10.7 [facility] Platelet mean volume [Entiti c volume] in Blood by Automated countOrdered By: Vlad Bhandari on 12-01-2023 Platelet mean volume (Bld) [Entitic vol] 8.7 fL Normal 6.3-10.7 [facility] Comment on above: Performed By: #### U HCG, ADDONUAPLUS #### [facility] [address] [place] [address] [place] Platelets Auto (Bld) [#/Vol] Ordered By: Vlad Bhandari on 12-01-2023 Platelets (Bld) [#/Vol] Platelets [#/volume] in Blood by Automated count 150-450 [facility] Platelets [#/volume] in Bloo d by Automated countOrdered By: Vlad Bhandari on 12-01-2023 Platelets (Bld) [#/Vol] 368 10*3/uL Normal 150-450 [facility] Comment on above: Performed By: #### U HCG, ADDONUAPLUS #### [facility] [address] [place] [address] [place] Potassium [Moles/volume] in Serum or PlasmaOrdered By: Vlad Bhandari on 12-01-2023 Potassium [Moles/Vol] 3.7 mmol/L Normal 3.5-5.1 [facility] Comment on above: Performed By: #### U HCG, ADDONUAPLUS #### [facility] [address] [place] [address] Potassium [Moles/Vol] Potassium [Moles/volume] in Serum or Plasma 3.5-5.1 [facility] Protein Test strip (U) [Mass /Vol]Ordered By: Vlad Bhandari on 12-01-2023 Protein (U) [Mass/Vol] Trace mg/dL High Negative [facility] Protein (U) [Mass/Vol] Protein [Mass/vol ume] in Urine by Test strip High Negative [facility] Protein [Mass/volume] in Ser um or PlasmaOrdered By: Vlad Bhandari on 12-01-2023 Protein [Mass/Vol] 6.9 g/dL Normal 6.4-8.9 [facility] Comment on above: Performed By: #### U HCG, ADDONUAPLUS #### [facility] [address] [place] [address] Protein [Mass/Vol] Protein [Mass/volume ] in Serum or Plasma 6.4-8.9 [facility] RBC Auto (Bld) [#/Vol]Ordere d By: Vlad Bhandari on 12-01-2023 RBC (Bld) [#/Vol] Erythrocytes [#/volu me] in Blood by Automated count 3.60-5.00 [facility] Serum globulin measurement b y calculation (mass/volume)Ordered By: Vlda Bhandari on 12-01-2023 Globulin (S) [Mass/Vol] 3.0 g/dL Normal [facility] Comment on above: Performed By: #### U HCG, ADDONUAPLUS #### [facility] [address] [place] [address] Serum or plasma albumin/glob ulin mass ratioOrdered By: Vlad Bhandari on 12-01-2023 Albumin/Globulin [Mass ratio] Serum or plasma albumin/globulin mass ratio [facility] Serum or plasma albumin/glob ulin mass ratioOrdered By: SYSTEM SYSTEM on 12-01-2023 Albumin/Globulin [Mass ratio] 1.3 {ratio} Normal [facility] Comment on above: Performed By: #### U HCG, ADDONKARENPLUS #### [facility] [address] [place] [address] Serum or plasma anion gap de terminationOrdered By: Vlad Bhandari on 12-01-2023 Anion gap [Moles/Vol] 11.8 mmol/L Normal 6.0-15.0 [facility] Comment on above: Performed By: #### U HCG, ADDONUAPLUS #### [facility] [address] [place] [address] Anion gap [Moles/Vol] Serum or plasma an ion gap determination 6.0-15.0 [facility] Serum or plasma non-glucuron idated bilirubin measurement (mass/volume)Ordered By: Vlad Bhandari on 12-01-2023 Bilirubin.indirect [Mass/Vol] 0.3 mg/dL [facility] Bilirubin.indirect [Mass/Vol] Serum or plasma non-glucuronidated bilirubin measurement (mass/volume) [facility] Sodium [Moles/volume] in Ser um or PlasmaOrdered By: Vlad Bhandari on 12-01-2023 Sodium [Moles/Vol] Sodium [Moles/volume ] in Serum or Plasma 136-145 [facility] Sodium [Moles/volume] in Ser um or PlasmaOrdered By: SYSTEM SYSTEM on 12-01-2023 Sodium [Moles/Vol] 141 mmol/L Normal 136-145 [facility] Comment on above: Performed By: #### U HCG, ADDONUAPLUS #### [facility] [address] Specific gravity Test strip (U) [Rel density]Ordered By: Vlad Bhandari on 12-01-2023 Specific gravity (U) [Rel density] 1.026 1.001-1.030 [facility] Specific gravity (U) [Rel density] Specific gravity of Urine by Test strip 1.001-1.030 [facility] Troponin 0 Hr.on 12-01-2023 Troponin HS 3.50 pg/mL Low 10.10-27.10 [facility] Comment on above: Result Comment: The 95% CI (Confidence Interval) PPV (Positive Predictive Value) for myocardial infarction in females is 38 pg/mL, in males 51 pg/mL. The results should be used in conjunction with clinical conditions of myocardial infarction. (Access High Sensitivity Troponin I Instructions For Use, [facility], October 2017) Performed By: #### 1 [id number] #### [facility] [address] [place] [address] UA with Cult Rflxon 12-01-19 24 Bilirubin Ql (U) Negative Normal Negative [facility] Comment on above: Performed By: #### 4 [id number] #### [facility] [address] [place] [address] Clarity (U) Ex.Turbid Abnormal Clear [facility] Comment on above: Performed By: #### 4 [id number] #### [facility] [address] [place] [address] Color (U) Yellow Normal Yellow [facility] Comment on above: Result Comment: Micr oscopic readings are only performed on those samples that meet specific criteria set forth by [facility]. Performed By: #### 4 [id number] #### [facility] [address] [place] [address] Crystals.amorphous Computer assisted Ql (U) Present Abnormal [facility] Comment on above: Performed By: #### 4 [id number] #### [facility] [address] [place] [address] Epithelial cells.squamous Auto (Urine sed) [#/Area] 0-2 Invalid Interpretation Code [facility] Comment on above: Performed By: #### 4 [id number] #### [facility] [address] [place] [address] Glucose Ql (U) Negative Normal Negative [facility] Comment on above: Performed By: #### 4 [id number] #### [facility] [address] [place] [address] Hemoglobin Auto test strip (U) [Mass/Vol] Negative Normal Negative [facility] Comment on above: Performed By: #### 4 [id number] #### [facility] [address] [place] [address] Ketones Auto test strip Ql (U) Negative Normal Negative [facility] Comment on above: Performed By: #### 4 [id number] #### [facility] [address] [place] [address] Leukocyte esterase Auto test strip Ql (U) Negative Normal Negative [facility] Comment on above: Performed By: #### 4 [id number] #### [facility] [address] [place] [address] Mucus Auto Ql (U) Negative Normal Negative [facility] Comment on above: Performed By: #### 4 [id number] #### [facility] [address] [place] [address] Nitrite Auto test strip Ql (U) Negative Normal Negative [facility] Comment on above: Performed By: #### 4 [id number] #### [facility] [address] [place] [address] pH (U) 8.0 [pH] Invalid Interpretation Code 5.0-9.0 [facility] Comment on above: Performed By: #### 4 [id number] #### [facility] [address] [place] [address] Protein Ql (U) Negative Normal Negative [facility] Comment on above: Performed By: #### 4 [id number] #### [facility] [address] [id number] Specific gravity (U) [Rel density] 1.018 Invalid Interpretation Code 1.005-1.030 [facility] Comment on above: Performed By: #### 4 [id number] #### [facility] [address] [id number] Urobilinogen (U) [Mass/Vol] Negative Normal Negative [facility] Comment on above: Performed By: #### 4 [id number] #### [facility] [address] [id number] Type of Urine collection method Clean Catch Normal [facility] Comment on above: Performed By: #### 4 [id number] #### [facility] [address] [id number] URINALYSISOrdered By: SYSTEM SYSTEM on 12-01-2023 Bilirubin Ql (U) Negative Normal Negativemg/ d L FT UA Auto SS Clarity (U) Ex.Turbid *ABN* (12/01/23 12:57 PM) Invalid Interpretation Code Clear FT UA Auto SS Color (U) Yellow 1 (12/01/23 12:57 PM) Normal Yellow [facility] UA Auto SS Comment on above: Interpretive Data: M icroscopic readings are only performed on those samples that meet specific criteria set forth by [facility]. Crystals.amorphous Computer assisted Ql (U) Present [...] Ql (U) Negative Normal Negativegr ad ed/LPF [facility] UA Auto SS Nitrite Auto test strip Ql (U) Negative Normal Negativemg/d L FT UA Auto SS pH (U) 8.0 *NA* (12/01/23 12:57 PM) Invalid Interpretation Code 5.0 - 9.0 [facility] UA Auto SS Protein Ql (U) Negative Normal Negativemg/d L [facility] UA Auto SS Specific gravity (U) [Rel density] 1.018 *NA* (12/01/23 12:57 PM) Invalid Interpretation Code 1.005 - 1.030 [facility] UA Auto SS Urobilinogen (U) [Mass/Vol] Negative Normal Negativemg/d L [facility] UA Auto SS URINALYSISOrdered By: Kwan Boss on 12-01-2023 UA Spec Desc Clean Catch (12/01/23 12:57 PM) Normal [facility] UA Auto SS Urea nitrogen [Mass/volume] in Serum or PlasmaOrdered By: Vlad Bhandari on 12-01-2023 Urea nitrogen [Mass/Vol] 14 mg/dL Normal 10-16 [facility] Comment on above: Performed By: #### U HCG, TONYONUAPLUS #### [facility] [address] [place] [address] Urea nitrogen [Mass/Vol] Urea nitrogen [Mass/volume] in Serum or Plasma 10-16 [facility] Urine appearanceOrdered By: Vlad Bhandari on 12-01-2023 Appearance (U) Clear Normal Clear [facility] Comment on above: Order Comment: Name Collection Type:: Clean-Voided Midstream Performed By: #### U HCG, ADDONUAPLUS #### [facility] [address] [place], [place] [id number] [facility] Urobilinogen Test strip (U) [Mass/Vol]Ordered By: Vlad Bhandari on 12-01-2023 Urobilinogen (U) [Mass/Vol] 3 mg/dL High Normal [facility] Urobilinogen (U) [Mass/Vol] Urobilinogen [Mass/volume] in Urine by Test strip High Normal [facility] WBC Auto (Bld) [#/Vol]Ordere d By: Vlad Bhandari on 12-01-2023 WBC (Bld) [#/Vol] Leukocytes [#/volume ] in Blood by Automated count 3.8-11.6 [facility] eGFRon 12-01-2023 eGFR 107 mL/min/1.73 m2 Normal >=59 [facility] Comment on above: Order Comment: Order added by Discern Expert. Performed By: #### 1 [id number] #### [facility] [address] [place] [address] pH Test strip (U)Ordered By: Vlad Bhandari on 12-01-2023 pH (U) pH of Urine by Test strip 5.0-9.0 [facility] pH of Urine by Test stripOrd ered By: Vlad Bhandari on 12-01-2023 pH (U) 6.5 [pH] Normal 5.0-9.0 [facility] Comment on above: Order Comment: Name Collection Type:: Clean-Voided Midstream Performed By: #### U HCG, ADDONUAPLUS #### [address] Coding Summaryon 11-29-2023 Coding Summary HTMLBase 64 HvodzxtmEQw2hKo+PGhlYWQ +IW5VRZGxI38ugLGbaK4aC5 NMTElOSywgQVBQTElOSyIgb fTiBR9jaSWiIIKk IC8+KO8wNHBhZwozpSKfb2S 7pYT5O00coy5qNAgpoKN2WL PdHtXcmxvgi1uwjKi4SKqmW mluOyBt HKUmeJ53NXZ3eO52Ab68dBI ucIPmt7olqHt1HvNwIWCoCN T9cSakYVltq1EkZLMlL03rx OJjt8N6 MKBloYaedOMjEcNqpEX0fY7 qFXmkyusgu6brqwwyHht9qh 87fKGjf6W7eIN7C3SjqyZ5V GJvbGQg QcquyGFAtN2rjoejr2ntdto gFqOuUEEqQFy1JZv7YOZeqK ysQcZsNV24ZVU3DDHqnvKuA 2FsLWFs mPdjRnF8q7M9Wk9EB7SGYsk lN2BDVTPRGZovqYA+PC90cj 91C1XnFduvYgk7STRqQLD2w AQ7vI4x MMWyMPhsd4U8jLQ8C8DadfD jnw2qh7vlCSAmDAvhH74mvF Lze4Z0SKSnoOX4UIUyjWecH iBzaG93 Oyc+JZTijDlde1KhKswym6l zr3ygjMt8BqiwNRGvqjEotF ioZHH9i6CmPd5wFXVfiPT0m NP6qC6j XuAxTfY2NPvfK843YtUjiZQ eLgkxZ13yB9QezDS+PHRyPj z3HOYgtHagIV2vX2NtWYTtx mctbGVm mVygVN8rHPTsgbnzRIRewY3 kMOZoC0y9NvMuApX9MGfiI0 PrNZKxloqjEf84rH7cUiNyF sV2LGto V8VsjrZ4VOHpbQJvITjwZYW 3X54po2B0VLVeWZRfRNO4jG J7bC2unPtauqvmxKQqcGiub mVydGlj FCtwXZsnC618SYRgfSdaSwZ vZGluZyBEYXRlOiAgMDkvMD YvMjAyNDwvdGQ+KOCsKLQ9q WxlPSAn kMKhWUmjQo1xdEabzCryXR3 sOJZqwwnlDPUzwO0mDFUhqN QqmEaiEU5jCXZsjyfoh685Y iAxMHB0 GSBmgENiB5BxlX6mXtLjWPM tQSHdI7JujPWfSKcoG135ZI jdNqT2ISUdehWbD0RnCUUob WduOiB0 e9A3Kt2Yv5WvrllvF9SxzYQ mZrByQfqbMEd3X7ApQxhapT I+FX11SEQzXZ09MKs9LTE6r WxlPSdi EVIkC3AgmO1zLpVnPQIyTAG kOyc+PHRhYmxlIHdpZHRoPS ppKIKiGhYfdRwiOZ2eHz5qR GVyLWNv fYqfoKEnXnEgw2ujTCLgLPc dMR7otPuuB5EaiIG0KVMpa8 n9Ex81V26nE1AdwQE+PGNvb GK9cPV5 zK7wQjUtMaG7GLuuQ278HsX ouOVhDfsyn9zah7avhGw0Oq Y2UEUnjyGdxNliLLO4g0TcQ r07Z29g IHdpZHRoPSIxNSUiIHZhbGl izu2iyJ8nTz9+LFLwbWC7nU J6fS4yRySxQcK4VNkwH281B nRvcCIv Asmjg4crp3drgUd4UbHqDND tefUdcLxmOMF9a9YjSm75Y1 IehJxuo9JrGzt8kk98bOOsb 6P0ySL6 U0DuNDHxlgkfvEUklXhxZE1 gJXXqmvrlXNDsjK3pJZMsD0 m4AdYoDuF7UQcyS7WzeyJ5S GJvbGQg FVFtsTYVtC8yuqflh4khuma aLrWoGBImJWs6UMv2DRLinM mcGgZbSJK5OmL1LSW1rLPor N0rtBty yszrkS3rCvd+ZGL4bTOryPE DMO6jPjgplPP+KRUgXZT6wK mrKEviDWDrfG6gXPBoD4q8C iAwLjA1 RKelG4LydaZ7TTWpaXElEWK kdWFUbV8rxrsrl7zcfuljSb YaCIAdEKa5CAt9YMLwyMywZ iBsZWZ0 WiJ1PVF1mTBcqB3vzBhsuxp alI5mPsf+CjtktFclGWO1KS s1K7DrLte9BWQfwKqeKB0ua GFkZGlu Fl9afVbuqAouUB9lUJQomsy ke179OdFym1utIQXtbAEbHO hlJVA4T90rt4W7UBLuBZUkL ZZ0yHL9 yA0lcEucwvizfMWizAqiatE ogFkrWGliELdfC036BWOunF rmZoLbVVs7Z7SvQso7ELSll ZxiFR2l qFFqVHexQg9czYcnpYolIV6 xTLPbpozxc421SbAzy1apRQ YsyOOgRLqyDBV0E46qo5V1E CMwMDAw MNG8nDI3lF7vsVjxvhuzhNG mdDsgdmVydGljYWwtYWxpZ2 01NWOzcCghBdApkJc3X3OeM hm9VWMo bOvbFM3smBFfOBjhGi4gtLa wzXwjUN2wSFSrydrfq448Zk Aar5diGLAvsDItKJzrNKU6F 57yz5Q4 IGNpAEXqYYC5wBO1dC0kjTk nbjogbGVmdDsgdmVydGljYW poIZqcP667XFEfbDfyNsTmk GllbnQg INzcFLf8F3BtAhketME+PC9 4IEWvNH74zBXlyBKrr0pxqL t6JdLhVVGsRCP9tSvzYLzzr 3JkZXIt S24fsPDpd2E2ACBzjNswtEG xIaOtuBR4nB8aNYeomikva6 kmgubhRgksr6ojjt74hD40N 29sIHdp ZHRoPSIzMCUiIHZhbGlnbj0 hdR1pFz6+WVPicNY0dFF9tX 9tUFDdHjT3RUmmX078OuKtt CIvPjxj s4pvg5hsjPw2BmF7HTFrrwY zsHcyIEL4s8PlWm50O84fSY dpZHRoPSIyMCUiIHZhbGlnb p3soO5a Ii8+IDVbqPN3qHK9hL8mObP gAxN7BNnpT284FuTphARsMm geZ95qK6UmnLL+VYSuZgo4J CBzdHls WQ5bsBGtBCgaZr3tZKG1SgT vVsZoMJqwF8JfGSWacsjoms jndVB0XEVgSBDrvC60Xj0yo DogMTBw mBILqJ9ooadxs3wbihrhQkB hNAVeQLb6YPr2HLWjoBugIq DyKDR9HfV5DJX6fCVptI1py Glnbjog vT7jM4LgXGKfxhhiVw97rE2 hSmTbAoX2ZDqaLax+TElFQi uaJWDHFQOPCNZPFgkEYyY8X 3VuIgp5 FBNjfPwsNL7kuHJrNDqoAe0 pbVlxwBulME0sSVQogqsfCL NtqW7gSUXstDAhcAucUI0qD TBpbjtm t933NwRgABC8WTDbhENwZ7Y hcD9aLwVcGLSfOVPnP2EnnJ KdUWgkO307GRixAvW2CGDlp fUhA1Tt HUNraPsxUnG2t7Y3Ky2tLv3 vOD5rPYa3IW29EJ91bLBsa9 J4nCF0A9LjOWBovthpahtsf VW1PJYe ZNHndJ08bIXnBGjtRa8jy3C 4v933WYJnTARzzX81Vv6soL ahVDAapPENuV8jctxwx0loh jogIzAw GZFqZWa4PBp0KYPdtYioLbI yLRH1MbD9LKQ0zXEzpY0snN ewlvubeQ5hRtw+NDYgWWVhc gA3Q3Ei Ule9UERemBnqFQ9koOMnWEp vYq3lvXedwMjrMW3sMHSjfn lvAOZisZ5yTHObbADobZzmV U3cQVJl dajzx322PpAiMKS3LXXgvAZ kB7UrzI3tOvMkAUFsMRVrU7 KenIVmEThmT517RRzeLzE0N HZlcnRp P6MgKOTecQrcDsE7z5U0Mp8 EBR7ILVR5X8VcPdm1EXQhvR gpAH3jtALxXDsuNq2fwMntm HazTG9y WGIwcfhfBEOajU4hZERszMI wyYiwVP8oSIBnxsnyr061Ma UfPLO3HZEkvVRvM1UltH6kS iAjMDAw VEVoR7XrhSWaWJvjX226BWh tOkZ5TLKubeUbX1ZySAIlsZ gxLfM0c2H6Jk6UwMQnK9LsM 6y2O6Xs PjwvdHI+ZS20AQOyRQ23sVL siPEwj9unxHb4TeEiBVQvFJ R7uHbdVVqyk3LtHDTuW12wk UWkr5M7 EHXnlKfdbPNbSaRnkGL1bC5 xPXjpnnshr4tkcntwLqasz3 scca84cC25E02pOBthVGRaM SIzMCUi QMOkrLsbda4gfL1yKx9+PGN nbRN9cAS1zZ5rXpGvUtO7RK miN242IzOiiQLhKvxda6fum 5wrgRk8 RuMxDWLnhkJreRinSGB3x8X oAw80E17xXEogASLzUFPfYE QkNDHykBywod3hjL6tDp4+P E2ek8yf ku03wZ13uJJ+TCOjIAL4oZd gENodMMXqaS9pBQtdYdZ9QX SsHmTsdR10pRKzGJepPn0ow WdodDog YV2aNDFehvdad581BnJxl4w tOBGbuNKqDUkbGCC4P61zp6 F8XTOrPFMcOZG1gOW3oY1ql Glnbjog bGVmdDsgdmVydGljYWwtYWx sK757CKHbnNpsYiUlgIEbQ8 ldjqPGBE5rOrjemHW+PHRkI VT4qQpc LMnrKNYzvE5zFFTbP0s0YfD gLvT4KMbaA8JzipG9ODNtjN NnGZYsrSYRqA6ixagmg0uhg jogIzAw XQTfNDq1TCm3PPFfzRshMbE fLDG3QoK1YCG9kJEkyW7jfI nfzhbunW0nAgg+RklOOjwvd GQ+PHRk CQY5yVjpIVmoMACnlN4eWLJ rP6x5NdYuKvZ4YCvzT2Jwmn X3ORSynQHdXGCyjTUHxU9hy ewja9on smbrHyVrMPZeJKt2NYy2VXK nyWgkTiGgMGT7FiI8ARL0fN HulD7rtQmhbitzaO2eRtl+T VJOOjwv dGQ+JXCrUVS2xKcoVOywLSN ufA4cZCIrB0s8WaBwLzS7SW wrL0TfmcD9UPHtoZEfBONzv YHKeS1u lanwa1veoqlcVyFvJZGiGKm 9FKd0RDKdhUevRnApUMG2Wn K2SXI0jDGxmD5eoZhvjcqnr G9wOyc+ FEN5XXE0PP00KH59B2BdNqa vdGFibGU+PHRhYmxlIHdpZH PcGUtrHHKaAxWoyLgfIX1oA k0jIOLt LWN (more content not included)... [facility] ED Note-Physicianon 11-28-19 ED Note-Physician Normal [facility] Comment on above: Result Comment: Elec tronically Signed By: Manuel Naik PA-C\.br\Date and Time Signed: 11/27/23 23:56 EDT\.br\Electronically Co-Signed By: Balbina Bryant M.D.\.br\Date and Time Co-Signed: 11/28/23 07:50 EDT ED Clinical Summaryon 2023 ED Clinical Summary Normal [facility] ED Patient Education Noteon 11-27-2023 ED Patient Education Note Normal [facility] ED Patient Summaryon 024 ED Patient Summary Normal [facility] SPLUMBWon 11-27-2023 [place] [id number] [facility] [address] CT Scan Report Signed with Addenda Patient Name: Jerad Tracy R ecord #: [id number] Date of : 1975 Account #:[id number] Age/Sex: 48 / F Location: ED Attending [...] Signed By: 11/27/2353 DD/ 9 TD/TT: 11/27/23949 Product Expert: BHARAT Exam/Order Verified? Y Exam Explained to Patient/Family? Y Was Patient Shielded? N Is Patient ? N Consent Form Completed? Hx Last Menstrual Period: NO CHANCE Does Patient have a Diabetic Device? No Diabetic Device Type: Was the Diabetic Device Removed? If NO: was Removal Consent form completed? Patient was informed of radiation exposure prior to scan? Verified by Technologist:ANISHA Comment: cc: Flex Veliz MD PCP,No Normal [facility] Absolute eosinophil countOrd ered By: Flex Veliz on 11-26-2023 Histamine release from basophils measurement Histamine release from basophils measurement 0.0-0.4 [facility] Automated absolute lymphocyt e countOrdered By: Flex Veliz on 11-26-2023 Lymphocytes # (Auto) 2.6 10'3/uL 0.5-3.5 [facility] Automated absolute neutrophi l countOrdered By: Flex Veliz on 11-26-2023 Absolute Neutrophil 8.5 10'3/uL High 1.5-5.6 [facility] BUN venousOrdered By: Flex castillo on 11-26-2023 Urea nitrogen (BldV) [Mass/Vol] BUN venous 7-18 [facility] [facility] Met[facility] Panelon 090 Anion gap [Moles/Vol] 14 mmol/L High 5-13 [facility] Comment on above: Performed By: #### B M, CRP #### [facility] [address] [place] [address] Calcium [Mass/Vol] 9.1 mg/dL Normal 8.4-10.2 [facility] Comment on above: Performed By: #### B M, CRP #### [facility] [address] [place] [address] Chloride [Moles/Vol] 108 mmol/L High 98-107 [facility] Comment on above: Performed By: #### B M, CRP #### [facility] [address] [place] [address] CO2 [Moles/Vol] 20 mmol/L Low 22-29 [facility] Comment on above: Performed By: #### B M, CRP #### [facility] [address] [place] [address] Creatinine [Mass/Vol] 0.77 mg/dL Normal 0.57-1.11 [facility] Comment on above: Performed By: #### Martha M, CRP #### [facility] [address] [place] [address] GFR/1.73 sq M.predicted among non-blacks MDRD (S/P/Bld) [Vol rate/Area] mL/min/{1.73_m2} Normal mL/min/1.73m 2 [facility] Comment on above: Performed By: #### Martha M, CRP #### [facility] [address] [place] [address] Glucose [Mass/Vol] 105 mg/dL High 70-100 [facility] Comment on above: Performed By: #### Martha M, CRP #### [facility] [address] [place] [address] Potassium [Moles/Vol] 3.5 mmol/L Normal 3.5-5.1 [facility] Comment on above: Performed By: #### Martha M, CRP #### [facility] [address] [place] [address] Sodium [Moles/Vol] 142 mmol/L Normal 136-145 [facility] Comment on above: Performed By: #### Martha M, CRP #### [facility] [address] [place] [address] Urea nitrogen [Mass/Vol] 10 mg/dL Normal 7-18 [facility] Comment on above: Performed By: #### Martha M, CRP #### [facility] [address] [place] [address] Basophils Auto (Bld) [#/Vol] Ordered By: Flex Veliz on 11-26-2023 Basophils (Bld) [#/Vol] Automated basophil count Low 0.1-0.2 [facility] Basophils/100 WBC Auto (Bld) Ordered By: Flex Veliz on 11-26-2023 Basophils/100 WBC (Bld) Automated basophil % 0-1 [facility] Blood anion gapOrdered By: Seng Veliz on 11-26-2023 Anion gap (Bld) [Moles/Vol] Blood anion gap High 5-13 [facility] Blood erythrocytes count (nu mber/volume)Ordered By: Flex Veliz on 11-26-2023 RBC (Bld) [#/Vol] Blood erythrocytes count (number/volume) 3.85-4.88 [facility] Blood platelets count (numbe r/volume)Ordered By: Flex Veliz on 11-26-2023 Platelets (Bld) [#/Vol] Platelet count blood High 122-359 [facility] C Reactive Proteinon 024 C Reactive Protein 1.0 mg/dL High <0.6 [facility] Comment on above: Performed By: #### B M, CRP #### [address] [address] C reactive protein measureme ntOrdered By: Flex Veliz on 11-26-2023 C-Reactive Protein 1.0 mg/dL High <0.6 [facility] Calcium measurement (mass/vo lume)Ordered By: Flex Veliz on 11-26-2023 Calcium (Unsp spec) [Mass/Vol] Calcium measurement (mass/volume) 8.4-10.2 [facility] Complete Blood Count with Di ffon 11-26-2023 Basophils Absolute Auto 0.0 10'3/uL Low 0.1-0.2 [facility] Comment on above: Performed By: #### C BCD #### [address] [address] Basophils/100 WBC (Bld) 0 % Normal 0-1 [facility] Comment on above: Performed By: #### C BCD #### [facility] [address] [place] [address] Eosinophils Absolute Auto 0.1 10'3/uL Normal 0.0-0.4 [facility] Comment on above: Performed By: #### C BCD #### [facility] [address] [place] [address] Eosinophils/100 WBC (Bld) 1 % Low 2-5 [facility] Comment on above: Performed By: #### C BCD #### [facility] [address] [place] [address] Erythrocyte distribution width (RBC) [Ratio] 13.2 % Normal 12.2-15.8 [facility] Comment on above: Performed By: #### C BCD #### [facility] [address] [place] [address] Hematocrit (Bld) [Volume fraction] 41.1 % Normal 34.6-44.1 [facility] Comment on above: Performed By: #### C BCD #### [facility] [address] [place] [address] Hemoglobin (Bld) [Mass/Vol] 13.8 g/dL Normal 11.7-14.9 [facility] Comment on above: Performed By: #### C BCD #### [facility] [address] [place] [address] Lymphocytes Absolute Auto 2.6 10'3/uL Normal 0.5-3.5 [facility] Comment on above: Performed By: #### C BCD #### [facility] [address] [place] [address] Lymphocytes/100 WBC (Bld) 22 % Normal 20-35 [facility] Comment on above: Performed By: #### C BCD #### [facility] [address] [place] [address] MCH (RBC) [Entitic mass] 31.1 pg Normal 27.8-33.2 [facility] Comment on above: Performed By: #### C BCD #### [facility] [address] [place] [address] MCV (RBC) [Entitic vol] 92.6 fL Normal 83.0-97.4 [facility] Comment on above: Performed By: #### C BCD #### [facility] [address] [place] [address] Mean Corpuscular HGB Conc 33.6 g/dL Normal 32.7-34.8 [facility] Comment on above: Performed By: #### C BCD #### [facility] [address] [place] [address] Monocytes Absolute Auto 0.7 10'3/uL Normal 0.2-0.8 [facility] Comment on above: Performed By: #### C BCD #### [facility] [address] [place] [address] Monocytes/100 WBC (Bld) 6 % Normal 4-12 [facility] Comment on above: Performed By: #### C BCD #### [facility] [address] [place] [address] Neutrophil # 8.5 10'3/uL High 1.5-5.6 [facility] Comment on above: Performed By: #### C BCD #### [facility] [address] [place] [address] Neutrophils/100 WBC (Bld) 71 % Normal 41-72 [facility] Comment on above: Performed By: #### C BCD #### [facility] [address] [place] [address] Platelet Count 400 10'3/uL High 122-359 [facility] Comment on above: Performed By: #### C BCD #### [facility] [address] [place] [address] Platelet mean volume (Bld) [Entitic vol] 9.7 fL Normal 7.6-10.6 [facility] Comment on above: Performed By: #### C BCD #### [facility] [address] [place] [address] Red Blood Count 4.44 10'6/uL Normal 3.85-4.88 [facility] Comment on above: Performed By: #### C BCD #### [facility] [address] [place] [address] White Blood Count 11.9 10'3/uL High 3.2-9.3 [facility] Comment on above: Performed By: #### C BCD #### [facility] [address] [place] [address] Creatinine (Bld) [Mass/Vol]O rdered By: Flex Veliz on 11-26-2023 Creatinine [Mass/Vol] Blood creatinine measurement (mass/volume) 0.57-1.11 [facility] EDon 11-26-2023 ED [facility] [address] [place] [address] Emergency Department Note Signed Patient Name: Jerad Tracy Medical Rod[address] rd #: [id number] Date of : 1975 Account #: [id number] Age/Sex: 48 / F Location: ED Attending [...] to have another one placed at the [facility] where she had her previous surgery. However, [...] anticoagulant use or easy bruising Allergic/immunologic: History [facility] Medical History (Updated 11/27/23 @ 01:17 by Flex Veliz MD) Bulging discs Surgical History (Updated 11/27/23 @ 00:31 by Raquel Jennings) H/O: hysterectomy Social History History Provided by: Patient Preferred Language: Citizen Of [place] Usual Living Arrangement: With Spouse/Significant Other Smoking [...] with scant (more content not included)... Normal [facility] ED Clinical Summaryon 2023 ED Clinical Summary [facility] Emergency Department [address] [place], [place] [id number] ED Clinical Summary PERSON INFORMATION Name: JERAD TRACY Age: 48 Years Sex: FEMALE : 1975 MRN: Acct#: Visit Reason: Post surgical problem; BACK PAIN Arrival: 11/26/2023 18:54:46 Discharge: 11/26/2023 20:00:00 LOS: 000 01:06 Check In: 11/26/2023 18:54:46 Checkout:11/26/2023 20:00:00 Address: [address] [facility] [place] [address] PCP: Cheyanne Mckeon PROVIDER INFORMATION VITALS INFORMATION [...] r verbalizes understanding of instructions given Comment: [facility] ED Patient Education Noteon 11-26-2023 ED Patient Education Note Education Materials [facility] ED Patient Summaryon 024 ED Patient Summary [facility] - Emergency Department [address] [place] [address] PATIENT DISCHARGE INSTRUCTIONS Patient Information Name: JERAD TRACY Age: 48 Years Date of : 1975 Reason For Visit: Post surgical problem; BACK PAIN Arrival Time: 11/26/2023 18:54:46 Primary Care Physician: Cheyanne Mckeon Attending Physician: Kristin Bryant MD Comment: Visit Diagnosis: Diagnoses This Visit Post surgical problem ([id number]) The Pharmacy at [facility] is open Saturday through Saturday from [...] alcohol and/or drug addiction problems; contact the [facility] 15/10 Crisis Hotline -Text 1AYGC ma 953811. If you received any narcotics, sedation, or [...] and treatment you received today in the [facility] Emergency Department were for an urgent problem and are not intended as complete care. It is important for you to follow up with a doctor, nurse practitioner, or physician?s dermatology physician assistant for ongoing care. If your symptoms [...] so we can reach you if necessary. [facility] Emergency Department has provided you with a complete list of medications post discharge. Please inform your records assistant/provider of your visit and for further instruction [...] Disease Control and Prevention November 2013 Normal [facility] Eosinophils/100 WBC Auto (Bl d)Ordered By: Flex Veliz on 11-26-2023 Eosinophils/100 WBC (Bld) Eosinophil percentage, automated Low 2-5 [facility] Estimated glomerular filtrat ion rate (GFR) determinationOrdered By: Flex Veliz on 11-26-2023 GFR/1.73 sq M.predicted among non-blacks MDRD (S/P/Bld) [Vol rate/Area] mL/min/{1.73_m2} mL/min/1.73m 2 [facility] Hematocrit Auto (Bld) [Volum e fraction]Ordered By: Flex Veliz on 11-26-2023 Hematocrit (Bld) [Volume fraction] Automated blood hematocrit (percentage) 34.6-44.1 [facility] Laboratory - UrinalysisOrder ed By: Flex Veliz on 11-26-2023 Leukocyte esterase Test strip Ql (U) Trace Negative [facility] Lymphocyte percentage, autom atedOrdered By: Flex Veliz on 11-26-2023 Lymphocytes/100 WBC (Bld) 22 % 20-35 [facility] MCV (mean corpuscular volume ) determinationOrdered By: Flex Veliz on 11-26-2023 MCV (RBC) [Entitic vol] Determination of erythrocyte mean corpuscular volume (MCV) 83.0-97.4 [facility] Mean corpuscular hemoglobin (MCH) determinationOrdered By: Flex Veliz on 11-26-2023 MCH (RBC) [Entitic mass] 31.1 pg 27.8-33.2 [facility] Mean corpuscular hemoglobin concentration (MCHC) determinationOrdered By: Flex Veliz on 11-26-2023 MCHC (RBC) [Mass/Vol] 33.6 g/dL 32.7-34.8 [facility] Monocytes Auto (Bld) [#/Vol] Ordered By: Flex Veliz on 11-26-2023 Monocytes (Bld) [#/Vol] Automated blood monocyte count 0.2-0.8 [facility] Monocytes/100 WBC Auto (Bld) Ordered By: Flex Veliz on 11-26-2023 Monocytes/100 WBC (Bld) Monocyte percentage, automated 4-12 [facility] MpvOrdered By: Flex garcia 11-26-2023 Platelet mean volume (Bld) [Entitic vol] 9.7 fL 7.6-10.6 [facility] Mucus LM Ql (Urine sed)Order ed By: Flex Veliz on 11-26-2023 Mucus Ql (Urine sed) Mucus detection in urine sediment by light microscopy [facility] Neutrophils/100 WBC Manual c nt (Bld)Ordered By: Flex Veliz on 11-26-2023 Neutrophils/100 WBC (Bld) Manual blood neutrophil count as percentage of leukocytes 41-72 [facility] No Panel InformationOrdered By: Flex Veliz on 11-26-2023 Urine Bacteria Trace /hpf 0 [facility] Occult blood ur QLOrdered By : Flex Veliz on 11-26-2023 Hemoglobin Ql (U) Occult blood ur QL Negative [facility] RDWOrdered By: Flex garcia 11-26-2023 Erythrocyte distribution width (RBC) [Ratio] 13.2 % 12.2-15.8 [facility] Serum or plasma carbon dioxi de measurement (moles/volume)Ordered By: Flex Veliz on 11-26-2023 CO2 [Moles/Vol] Serum or plasma tota l carbon dioxide measurement (moles/volume) Low 22-29 [facility] Serum or plasma chloride florin surement (moles/volume)Ordered By: Flex Veliz on 11-26-2023 Chloride [Moles/Vol] Serum or plasma chloride measurement (moles/volume) High 98-107 [facility] Serum or plasma glucose skyla urement (mass/volume)Ordered By: Flex Veliz on 11-26-2023 Glucose [Mass/Vol] Serum glucose measurement (mass/volume) High 70-100 [facility] Serum or plasma potassium me asurement (moles/volume)Ordered By: Flex Veliz on 11-26-2023 Potassium [Moles/Vol] Serum or plasma potassium measurement (moles/volume) 3.5-5.1 [facility] Specific gravity Test strip (U) [Rel density]Ordered By: Flex Veliz on 11-26-2023 Specific gravity (U) [Rel density] Specific gravity ur dipstick 1.005-1.030 [facility] Squamous epithelial cells de tection in urine sediment by light microscopyOrdered By: Flex Veliz on 11-26-2023 Epithelial cells.squamous LM Ql (Urine sed) Squamous epithelial cells detection in urine sediment by light microscopy 0 [facility] UA with Reflex Cultureon Bacteria Urine TRACE Normal 0 [facility] Comment on above: Performed By: #### U AREFLEX #### [facility] [address] [place] [address] Mucus Urine 1+ /hpf Normal [facility] Comment on above: Performed By: #### U AREFLEX #### [facility] [address] [place] [address] Squamous Epithelial Cell Urine 6-10 Normal 0 [facility] Comment on above: Performed By: #### U AREFLEX #### [facility] [address] [place] [address] WBC Urine 0-2 Normal 0 [facility] Comment on above: Performed By: #### U AREFLEX #### [facility] [address] [place] [address] Appearance (U) CLEAR Normal CLEAR [facility] Comment on above: Performed By: #### U AREFLEX #### [facility] [address] [place] [address] Bilirubin Urine Negative Normal Negative [facility] Comment on above: Performed By: #### U AREFLEX #### [facility] [address] [place] [address] Color (U) YELLOW Normal YELLOW [facility] Comment on above: Performed By: #### U AREFLEX #### [facility] [address] [place] [address] Glucose Urine UA Negative Normal Negative [facility] Comment on above: Performed By: #### U AREFLEX #### [facility] [address] [place] [address] Ketones Ql (U) Negative Normal Negative [facility] Comment on above: Performed By: #### U AREFLEX #### [facility] [address] [place] [address] Leukocyte esterase Test strip Ql (U) TRACE Normal Negative [facility] Comment on above: Performed By: #### U AREFLEX #### [facility] [address] [place] [address] Nitrite Urine Negative Normal NEGATIVE [facility] Comment on above: Performed By: #### U AREFLEX #### [facility] [address] [place] [address] Occult Blood Urine Negative Normal Negative [facility] Comment on above: Performed By: #### U AREFLEX #### [facility] [address] [place] [address] pH (U) 7.0 [pH] Normal 5.5-8.0 [facility] Comment on above: Performed By: #### U AREFLEX #### [facility] [address] [place] [address] Protein Urine (Multistix) Negative Normal Negative [facility] Comment on above: Performed By: #### U AREFLEX #### [facility] [address] [place] [address] Specific Jamul Urine 1.015 Normal 1.005-1.030 [facility] Comment on above: Performed By: #### U AREFLEX #### [facility] [address] [place] [address] Urobilinogen Urine 0.2 EU/dL Normal 0.2-1.0 [facility] Comment on above: Performed By: #### U AREFLEX #### [facility] [address] [place] [address] Urine appearance determinati onOrdered By: Flex Veliz on 11-26-2023 Appearance (U) Urine appearance CLEAR [facility] Urine bilirubin measurementO rdered By: Flex Veliz on 11-26-2023 Bilirubin Ql (U) Negative Negative [facility] Urine color determinationOrd ered By: Flex Veliz on 11-26-2023 Color (U) Urine color YELLOW [facility] Urine glucose detection by a utomated test stripOrdered By: Flex Veliz on 11-26-2023 Glucose Auto test strip Ql (U) Urine glucose detection by automated test strip Negative [facility] Urine ketones measurementOrd ered By: Flex Veliz on 11-26-2023 Ketones Ql (U) Negative Negative [facility] Urine microscopic examinatio n for leukocytesOrdered By: Flex Veliz on 11-26-2023 Urine Microscopic WBC 0-2 /hpf 0 [facility] Urine nitrite detection by a utomated test stripOrdered By: Flex Veliz on 11-26-2023 Nitrite Auto test strip Ql (U) Urine nitrite detection by automated test strip NEGATIVE [facility] Urine pH measurementOrdered By: Flex Veliz on 11-26-2023 pH (U) pH of Urine 5.5-8.0 [facility] Urine protein measurementOrd ered By: Flex Veliz on 11-26-2023 Protein Ql (U) Negative Negative [facility] Urine urobilinogen measureme ntOrdered By: Flex Veliz on 11-26-2023 Urobilinogen Ql (U) Urine urobilinogen measurement 0.2-1.0 [facility] Venous blood sodium measurem entOrdered By: Flex Veliz on 11-26-2023 Sodium (BldV) [Moles/Vol] Venous blood sodium measurement 136-145 [facility] WBC totalOrdered By: Flex milton on 11-26-2023 White Blood Count 11.9 10'3/uL High 3.2-9.3 [facility] Whole blood hemoglobin measu rement (mass/volume)Ordered By: Flex Veliz on 11-26-2023 Hemoglobin (Bld) [Mass/Vol] Blood hemoglobin measurement (mass/volume) 11.7-14.9 [facility] Alanine aminotransferase [En zymatic activity/volume] in Serum or PlasmaOrdered By: José Miguel Mcnamara on 11-25-2023 ALT [Catalytic activity/Vol] 22 U/L Normal [facility] Comment on above: Performed By: #### U HCG, ADDONUAPLUS #### [facility] [address] ALT [Catalytic activity/Vol] Alanine aminotransferase [Enzymatic activity/volume] in Serum or Plasma [facility] Albumin [Mass/volume] in Ser um or Plasma by Bromocresol green (BCG) dye binding methoOrdered By: José Miguel Mcnamara on 11-25-2023 Albumin BCG dye [Mass/Vol] 3.8 g/dL 3.5-5.7 [facility] Albumin BCG dye [Mass/Vol] Albumin [Mass/volume] in Serum or Plasma by Bromocresol green (BCG) dye binding metho 3.5-5.7 [facility] Alkaline phosphatase [Enzyma tic activity/volume] in Serum or PlasmaOrdered By: José Miguel Mcnamara on 11-25-2023 ALP [Catalytic activity/Vol] 65 U/L Normal [facility] Comment on above: Performed By: #### U HCG, ADDONUAPLUS #### [facility] [address] [place] [address] ALP [Catalytic activity/Vol] Alkaline phosphatase [Enzymatic activity/volume] in Serum or Plasma [facility] Aspartate aminotransferase [ Enzymatic activity/volume] in Serum or PlasmaOrdered By: José Miguel Mcnamara on 11-25-2023 AST [Catalytic activity/Vol] 18 U/L Normal [facility] Comment on above: Performed By: #### U HCG, ADDONUAPLUS #### [facility] [address] [place] [address] AST [Catalytic activity/Vol] Aspartate aminotransferase [Enzymatic activity/volume] in Serum or Plasma [facility] Automated basophil %Ordered By: José Miguel Mcnamara on 11-25-2023 Basophils/100 WBC (Bld) 0.5 % Normal . [facility] Comment on above: Performed By: #### U HCG, ADDONUAPLUS #### [address] Automated basophil countOrde red By: José Miguel Mcnamara on 11-25-2023 Basophils (Bld) [#/Vol] 0.1 10*3/uL Normal 0.0-0.2 [facility] Comment on above: Result Comment: PERF ORMED BY: [place] [address] PATHOLOGIST [employer]OW[employer] CUTTER JASON WILSON M.D. Performed By: #### U HCG, ADDONUAPLUS #### [address] Automated blood monocyte cou ntOrdered By: José Miguel Mcnamara on 11-25-2023 Monocytes (Bld) [#/Vol] 0.8 10*3/uL Normal 0.0-0.8 [facility] Comment on above: Performed By: #### U HCG, ADDONUAPLUS #### [address] Automated eosinophil %Ordere d By: José Miguel Mcnamara on 11-25-2023 Eosinophils/100 WBC (Bld) 1.4 % Normal . [facility] Comment on above: Performed By: #### U HCG, ADDONUAPLUS #### [address] Automated eosinophil countOr dered By: José Miguel Mcnamara on 11-25-2023 Eosinophils (Bld) [#/Vol] 0.1 10*3/uL Normal 0.0-0.45 [facility] Comment on above: Performed By: #### U HCG, ADDONUAPLUS #### [address] Automated monocyte %Ordered By: José Miguel Mcnamara on 11-25-2023 Monocytes/100 WBC (Bld) 7.6 % Normal . [facility] Comment on above: Performed By: #### U HCG, ADDONUAPLUS #### [address] Automated neutrophil %Ordere d By: José Miguel Mcnamara on 11-25-2023 Neutrophils/100 WBC (Bld) 64.0 % Normal . [facility] Comment on above: Performed By: #### U HCG, ADDONUAPLUS #### [facility] [address] Basic Metabolic Panelon Creatinine Clr Calc Pharmacy 94.23 Normal [facility] Comment on above: Result Comment: PERF ORMED BY: [place] [address] PATHOLOGIST [employer]OWCASE CUTTER JASON WILSON M.D. Performed By: #### U HCG, ADDONUAPLUS #### [facility] [address] [place] [address] GFR/1.73 sq M.predicted MDRD (S/P/Bld) [Vol rate/Area] mL/min/{1.73_m2} Normal [facility] Comment on above: Performed By: #### U HCG, ADDONUAPLUS #### [facility] [address] [place] [address] Basophils Auto (Bld) [#/Vol] Ordered By: José Miguel Mcnamara on 11-25-2023 Basophils (Bld) [#/Vol] Automated basophil count 0.0-0.2 [facility] Basophils/100 WBC Auto (Bld) Ordered By: José Miguel Mcnamara on 11-25-2023 Basophils/100 WBC (Bld) Automated basophil % . [facility] Bilirubin.direct [Mass/volum e] in Serum or PlasmaOrdered By: José Miguel Mcnamara on 11-25-2023 Bilirubin.direct [Mass/Vol] 0.00 mg/dL Low 0.03-0.18 [facility] Comment on above: If the DBIL is less than 0.1, IBIL is not able to becalculated. Bilirubin.direct [Mass/Vol] Bilirubin.direct [Mass/volume] in Serum or Plasma Low 0.03-0.18 [facility] Comment on above: If the DBIL is less than 0.1, IBIL is not able to becalculated. Bilirubin.total [Mass/volume ] in Serum or PlasmaOrdered By: José Miguel Mcnamara on 11-25-2023 Bilirubin [Mass/Vol] 0.2 mg/dL Low 0.3-1.0 [facility] Comment on above: Performed By: #### U HCG, ADDONUAPLUS #### [facility] [address] [place] [address] [place] Bilirubin [Mass/Vol] Bilirubin.total [Mass/volume] in Serum or Plasma Low 0.3-1.0 [facility] Calcium [Mass/volume] in Ser um or PlasmaOrdered By: José Miguel Mcnamara on 11-25-2023 Calcium [Mass/Vol] 8.2 mg/dL Low 8.6-10.3 [facility] Comment on above: Performed By: #### U HCG, ADDONUAPLUS #### [facility] [address] Calcium [Mass/Vol] Calcium [Mass/volume ] in Serum or Plasma Low 8.6-10.3 [facility] Carbon dioxide, total [Moles /volume] in Serum or PlasmaOrdered By: José Miguel Mcnamara on 11-25-2023 CO2 [Moles/Vol] 26.0 mmol/L Normal 21.0-31.[address] [facility] Comment on above: Performed By: #### U HCG, ADDONUAPLUS #### [facility] [address] [place] [address] [place] CO2 [Moles/Vol] Carbon dioxide, tota l [Moles/volume] in Serum or Plasma 21.0-31.0 [facility] Chloride [Moles/volume] in S saw or PlasmaOrdered By: José Miguel Mcnamara on 11-25-2023 Chloride [Moles/Vol] 106 mmol/L Normal 98-107 [facility] Comment on above: Performed By: #### U HCG, ADDONUAPLUS #### [facility] [address] [place] [id number] [place] Chloride [Moles/Vol] Chloride [Moles/vol ume] in Serum or Plasma 98-107 [facility] Complete Blood Count Auto Di ffon 11-25-2023 Mean Corpuscular HGB Conc 33.6 g/dL Normal 32.0-35.0 [facility] Comment on above: Performed By: #### U HCG, ADDONUAPLUS #### [facility] [address] [place] [address] [place] Monocytes/100 WBC (Bld) 19.84 % Normal 0.00-20.00 [facility] Comment on above: Performed By: #### U HCG, ADDONUAPLUS #### [facility] [address] NRBC% 0.2 /100{WBC} Normal 0-0.5 [facility] Comment on above: Performed By: #### U HCG, ADDONUAPLUS #### [facility] [address] [place] [address] [place] Creatinine [Mass/volume] in Serum or PlasmaOrdered By: José Miguel Mcnamara on 11-25-2023 Creatinine [Mass/Vol] 0.92 mg/dL Normal 0.60-1.20 [facility] Comment on above: Performed By: #### U HCG, ADDONUAPLUS #### [facility] [address] [place] [address] [place] Creatinine [Mass/Vol] Creatinine [Mass/volume] in Serum or Plasma 0.60-1.20 [facility] Eosinophils Auto (Bld) [#/Vo l]Ordered By: José Miguel Mcnamara on 11-25-2023 Eosinophils (Bld) [#/Vol] Automated eosinophil count 0.0-0.45 [facility] Eosinophils/100 WBC Auto (Bl d)Ordered By: José Miguel Mcnamara on 11-25-2023 Eosinophils/100 WBC (Bld) Automated eosinophil % . [facility] Erythrocyte distribution wid th Auto (RBC) [Ratio]Ordered By: José Miguel Mcnamara on 11-25-2023 Erythrocyte distribution width (RBC) [Ratio] Erythrocyte distribution width [Ratio] by Automated count 11.9-15.3 [facility] Erythrocyte distribution wid th [Ratio] by Automated countOrdered By: José Miguel Mcnamara on 11-25-2023 Erythrocyte distribution width (RBC) [Ratio] 14.0 % Normal 11.9-15.3 [facility] Comment on above: Performed By: #### U HCG, ADDONUAPLUS #### [facility] [address] Erythrocytes [#/volume] in B lood by Automated countOrdered By: José Miguel Mcnamara on 11-25-2023 RBC (Bld) [#/Vol] 3.94 10*6/uL Normal 3.60-5.[address] [facility] Comment on above: Performed By: #### U HCG, ADDONUAPLUS #### [facility] [address] [place] [id number] [facility] Globulin Calc (S) [Mass/Vol] Ordered By: José Miguel Mcnamara on 11-25-2023 Globulin (S) [Mass/Vol] Serum globulin measurement by calculation (mass/volume) [facility] Glucose [Mass/volume] in Ser um or PlasmaOrdered By: José Miguel Mcnamara on 11-25-2023 Glucose [Mass/Vol] 105 mg/dL High 70-100 [facility] Comment on above: ADA recommended refe rence rangeRandom Glucose Reference Range is dependent on time and content of last meal. Glucose of more than 200 mg/dL in a nonstressed, ambulatory subject supports the diagnosis of Diabetes Mellitus. Result Comment: [place] Glucose Reference Range is dependent on time and content of last meal. Glucose of more than 200 mg/dL in a nonstressed, ambulatory subject supports the diagnosis of Diabetes Mellitus. ADA recommended reference range Performed By: #### U HCG, ADDONUAPLUS #### [facility] [address] [place] [id number] [facility] Glucose [Mass/Vol] Glucose [Mass/volume ] in Serum or Plasma High 70-100 [facility] Comment on above: ADA recommended refe rence rangeRandom Glucose Reference Range is dependent on time and content of last meal. Glucose of more than 200 mg/dL in a nonstressed, ambulatory subject supports the diagnosis of Diabetes Mellitus. Hematocrit Auto (Bld) [Volum e fraction]Ordered By: José Miguel Mcnamara on 11-25-2023 Hematocrit (Bld) [Volume fraction] Hematocrit [Volume Fraction] of Blood by Automated count 34.0-46.4 [facility] Hematocrit [Volume Fraction] of Blood by Automated countOrdered By: José Miguel Mcnamara on 11-25-2023 Hematocrit (Bld) [Volume fraction] 37.0 % Normal 34.0-46.4 [facility] Comment on above: Performed By: #### U HCG, ADDONUAPLUS #### [facility] [address] [place] [address] Hemoglobin [Mass/volume] in BloodOrdered By: José Miguel Mcnamara on 11-25-2023 Hemoglobin (Bld) [Mass/Vol] 12.4 g/dL Normal 11.8-15.4 [facility] Comment on above: Performed By: #### U HCG, ADDONUAPLUS #### [address] Hemoglobin (Bld) [Mass/Vol] Hemoglobin [Mass/volume] in Blood 11.8-15.4 [facility] Hepatic Panelon 11-25-2023 Albumin [Mass/Vol] 3.8 g/dL Normal 3.5-5.7 [facility] Comment on above: Performed By: #### U HCG, ADDONUAPLUS #### [address] Bilirubin,Indirect 0.2 mg/dL Normal [facility] Comment on above: Performed By: #### U HCG, ADDONUAPLUS #### [address] Bilirubin.indirect [Mass/Vol] 0.00 mg/dL Low 0.03-0.18 [facility] Comment on above: Result Comment: If t he DBIL is less than 0.1, IBIL is not able to be calculated. Performed By: #### U HCG, ADDONUAPLUS #### [address] Leukocytes [#/volume] correc lisa for nucleated erythrocytes in Blood by Automated counOrdered By: José Miguel Mcnamara on 11-25-2023 WBC corrected for nucl RBC Auto (Bld) [#/Vol] 9.9 10*3/uL 3.8-11.6 [facility] WBC corrected for nucl RBC Auto (Bld) [#/Vol] Leukocytes [#/volume] corrected for nucleated erythrocytes in Blood by Automated coun 3.8-11.6 [facility] Leukocytes [#/volume] in Blo od by Automated countOrdered By: Joés Miguel Mcnamara on 11-25-2023 WBC (Bld) [#/Vol] 9.9 10*3/uL Normal 3.8-11.6 [facility] Comment on above: Performed By: #### U HCG, ADDONUAPLUS #### [facility] [address] [place] [address] Lymphocytes Auto (Bld) [#/Vo l]Ordered By: José Miguel Mcnamara on 11-25-2023 Lymphocytes (Bld) [#/Vol] Lymphocytes [#/volume] in Blood by Automated count 1.00-4.8 [facility] Lymphocytes [#/volume] in Bl ood by Automated countOrdered By: José Miguel Mcnamara on 11-25-2023 Lymphocytes (Bld) [#/Vol] 2.6 10*3/uL Normal 1.00-4.8 [facility] Comment on above: Performed By: #### U HCG, ADDONUAPLUS #### [address] Lymphocytes/100 WBC Auto (Bl d)Ordered By: José Miguel Mcnamara on 11-25-2023 Lymphocytes/100 WBC (Bld) Lymphocytes/100 leukocytes in Blood by Automated count . [facility] Lymphocytes/100 leukocytes i n Blood by Automated countOrdered By: José Miguel Mcnamara on 11-25-2023 Lymphocytes/100 WBC (Bld) 26.5 % Normal . [facility] Comment on above: Performed By: #### U HCG, ADDONUAPLUS #### [facility] [address] [place] [address] MCH Auto (RBC) [Entitic mass ]Ordered By: José Miguel Mcnamara on 11-25-2023 MCH (RBC) [Entitic mass] MCH [Entitic mass] by Automated count 24.7-34.3 [facility] MCH [Entitic mass] by Automa lisa countOrdered By: José Miguel Mcnamara on 11-25-2023 MCH (RBC) [Entitic mass] 31.6 pg Normal 24.7-34.3 [facility] Comment on above: Performed By: #### U HCG, ADDONUAPLUS #### [facility] [address] MCHC Auto (RBC) [Mass/Vol]Or dered By: José Miguel Mcnamara on 11-25-2023 MCHC (RBC) [Mass/Vol] 33.6 g/dL 32.0-35.0 [facility] MCHC (RBC) [Mass/Vol] MCHC [Mass/volume] by Automated count 32.0-35.0 [facility] MCV Auto (RBC) [Entitic vol] Ordered By: José Miguel Mcnamara on 11-25-2023 MCV (RBC) [Entitic vol] MCV [Entitic volume] by Automated count 80-100 [facility] MCV [Entitic volume] by Auto mated countOrdered By: José Miguel Mcnamara on 11-25-2023 MCV (RBC) [Entitic vol] 93.9 fL Normal 80-100 [facility] Comment on above: Performed By: #### U HCG, ADDONUAPLUS #### [facility] [address] [place] [address] Monocyte distribution width [Entitic volume] in Blood by AutomatedOrdered By: José Miguel Mcnamara on 11-25-2023 Monocyte distribution width Auto (Bld) [Entitic vol] 19.84 % 0.00-20.00 [facility] Monocyte distribution width Auto (Bld) [Entitic vol] Monocyte distribution width [Entitic volume] in Blood by Automated 0.00-20.00 [facility] Monocytes Auto (Bld) [#/Vol] Ordered By: José Miguel Mcnamara on 11-25-2023 Monocytes (Bld) [#/Vol] Automated blood monocyte count 0.0-0.8 [facility] Monocytes/100 WBC Auto (Bld) Ordered By: José Miguel Mcnamara on 11-25-2023 Monocytes/100 WBC (Bld) Automated monocyte % . [facility] Neutrophils Auto (Bld) [#/Vo l]Ordered By: José Miguel Mcnamara on 11-25-2023 Neutrophils (Bld) [#/Vol] Neutrophils [#/volume] in Blood by Automated count 1.8-7.7 [facility] Neutrophils [#/volume] in Bl ood by Automated countOrdered By: José Miguel Mcnamara on 11-25-2023 Neutrophils (Bld) [#/Vol] 6.3 10*3/uL Normal 1.8-7.7 [facility] Comment on above: Performed By: #### U HCG, ADDONUAPLUS #### [facility] [address] [place] [address] [place] Neutrophils/100 WBC Auto (Bl d)Ordered By: José Miguel Mcnamara on 11-25-2023 Neutrophils/100 WBC (Bld) Automated neutrophil % . [facility] No Panel InformationOrdered By: José Miguel Mcnamara on 11-25-2023 Estimated GFR (CKD-EPI) > 60.0 mL/Min [facility] Creatinine Clearance (Chem 94.23 [facility] Nucleated erythrocytes [Pres ence] in Blood by Automated countOrdered By: José Miguel Mcnamara on 11-25-2023 Nucleated RBC Auto Ql (Bld) 0.2 /100{WBC} 0-0.5 [facility] Nucleated RBC Auto Ql (Bld) Nucleated erythrocytes [Presence] in Blood by Automated count 0-0.5 [facility] Platelet mean volume Auto (B ld) [Entitic vol]Ordered By: José Miguel Mcnamara on 11-25-2023 Platelet mean volume (Bld) [Entitic vol] Platelet mean volume [Entitic volume] in Blood by Automated count 6.3-10.7 [facility] Platelet mean volume [Entiti c volume] in Blood by Automated countOrdered By: José Miguel Mcnamara on 11-25-2023 Platelet mean volume (Bld) [Entitic vol] 8.3 fL Normal 6.3-10.7 [facility] Comment on above: Performed By: #### U HCG, ADDONUAPLUS #### [facility] [address] [place] [address] [place] Platelets Auto (Bld) [#/Vol] Ordered By: José Miguel Mcnamara on 11-25-2023 Platelets (Bld) [#/Vol] Platelets [#/volume] in Blood by Automated count 150-450 [facility] Platelets [#/volume] in Bloo d by Automated countOrdered By: José Miguel Mcnamara on 11-25-2023 Platelets (Bld) [#/Vol] 326 10*3/uL Normal 150-450 [facility] Comment on above: Performed By: #### U HCG, ADDONUAPLUS #### [facility] [address] [place] [address] Potassium [Moles/volume] in Serum or PlasmaOrdered By: José Miguel Mcnamara on 11-25-2023 Potassium [Moles/Vol] 4.0 mmol/L Normal 3.5-5.1 [facility] Comment on above: Performed By: #### U HCG, ADDONUAPLUS #### [facility] [address] [place] [address] Potassium [Moles/Vol] Potassium [Moles/volume] in Serum or Plasma 3.5-5.1 [facility] Protein [Mass/volume] in Ser um or PlasmaOrdered By: José Miguel Mcnamara on 11-25-2023 Protein [Mass/Vol] 6.6 g/dL Normal 6.4-8.9 [facility] Comment on above: Performed By: #### U HCG, ADDONUAPLUS #### [facility] [address] [place] [address] Protein [Mass/Vol] Protein [Mass/volume ] in Serum or Plasma 6.4-8.9 [facility] RBC Auto (Bld) [#/Vol]Ordere d By: José Miguel Mcnamara on 11-25-2023 RBC (Bld) [#/Vol] Erythrocytes [#/volu me] in Blood by Automated count 3.60-5.00 [facility] Serum globulin measurement b y calculation (mass/volume)Ordered By: José Miguel Mcnamara on 11-25-2023 Globulin (S) [Mass/Vol] 2.8 g/dL Normal [facility] Comment on above: Performed By: #### U HCG, ADDONUAPLUS #### [facility] [address] [place] [address] Serum or plasma albumin/glob ulin mass ratioOrdered By: José Miguel Mcnamara on 11-25-2023 Albumin/Globulin [Mass ratio] 1.4 {ratio} [facility] Comment on above: Performed By: #### U HCG, ADDONUAPLUS #### [facility] [address] Albumin/Globulin [Mass ratio] Serum or plasma albumin/globulin mass ratio [facility] Serum or plasma anion gap de terminationOrdered By: José Miguel Mcnamara on 11-25-2023 Anion gap [Moles/Vol] 12.0 mmol/L Normal 6.0-15.0 [facility] Comment on above: Performed By: #### U HCG, ADDONUAPLUS #### [facility] [address] [place] [address] Anion gap [Moles/Vol] Serum or plasma an ion gap determination 6.0-15.0 [facility] Serum or plasma non-glucuron idated bilirubin measurement (mass/volume)Ordered By: José Miguel Mcnamara on 11-25-2023 Bilirubin.indirect [Mass/Vol] 0.2 mg/dL [facility] Bilirubin.indirect [Mass/Vol] Serum or plasma non-glucuronidated bilirubin measurement (mass/volume) [facility] Sodium [Moles/volume] in Ser um or PlasmaOrdered By: José Miguel Mcnamara on 11-25-2023 Sodium [Moles/Vol] 140 mmol/L Normal 136-145 [facility] Comment on above: Performed By: #### U HCG, ADDONUAPLUS #### [address] Sodium [Moles/Vol] Sodium [Moles/volume ] in Serum or Plasma 136-145 [facility] Urea nitrogen [Mass/volume] in Serum or PlasmaOrdered By: José Miguel Mcnamara on 11-25-2023 Urea nitrogen [Mass/Vol] 17 mg/dL Normal 7-25 [facility] Comment on above: Performed By: #### U HCG, ADDONUAPLUS #### [facility] [address] [place] [address] [place] Urea nitrogen [Mass/Vol] Urea nitrogen [Mass/volume] in Serum or Plasma 7-25 [facility] WBC Auto (Bld) [#/Vol]Ordere d By: José Miguel Mcnamara on 11-25-2023 WBC (Bld) [#/Vol] Leukocytes [#/volume ] in Blood by Automated count 3.8-11.6 [facility] ED Clinical Summaryon 2023 ED Clinical Summary Normal [facility] ED Note-Physicianon 11-24-19 ED Note-Physician Normal [facility] Comment on above: Result Comment: Elec tronically Signed By: Landon Tidwell PA-C\.br\Date and Time Signed: 11/24/23 15:48 EDT\.br\Electronically Co-Signed By: Balbina Bryant M.D.\.br\Date and Time Co-Signed: 11/24/23 17:50 EDT ED Patient Education Noteon 11-24-2023 ED Patient Education Note Normal [facility] ED Patient Summaryon 024 ED Patient Summary Normal [facility] XR Knee Complete 4+ Views Le fton 11-24-2023 XR Knee Complete 4+ Views Left Normal [facility] Creatinineon 11-17-2023 Creatinine [Mass/Vol] 0.70 mg/dL Normal 0.50-1.05 [facility] Comment on above: Performed By: #### 2 160-0 ####JOLENE Cantu ([id number])[facility] ([facility])[address] [place] [address] Creatinine [Mass/Vol]on 10-24 GFR/1.73 sq M.predicted MDRD (S/P/Bld) [Vol rate/Area] mL/min/{1.73_m2} Normal >60 [facility] Comment on above: Result Comment: Calc ulations of estimated GFR are performed using the 2020 CKD-EPI Study Refit equation without the race variable for the IDMS-Traceable creatinine methods.https://jasn.asnjournals.org/content/early//A SN.0910182045 Performed By: #### 2 160-0 ####JOLENE Cantu ([id number])[facility] ([facility])[address] [place] [address] Vancomycinon 11-17-2023 Vancomycin [Mass/Vol] 7.5 ug/mL Normal 5.0-20.0 [facility] Comment on above: Order Comment: Vanco mycin [...] Performed By: #### 2 0578-1 ####JOLENE Cantu ([id number])[facility] ([facility])[address] [place] [address] Bacteria identifiedon 2023 Bacteria identified Cx Nom (Unsp spec) Abnormal [facility] Comment on above: Performed By: #### 6 463-4 ####JOLENE Cantu ([id number])[facility] ([facility])[id number] [place] [address] Urinalysis complete panel (U )on 11-14-2023 Appearance (U) Clear Normal Clear [facility] Comment on above: Performed By: #### 2 4356-8 ####JOLENE Cantu ([id number])[facility] ([facility])[address] [place] [address] Bilirubin (U) [Mass/Vol] Negative Normal NEGATIVE [facility] Comment on above: Performed By: #### 2 4356-8 ####JOLENE Cantu ([id number])[facility] ([facility])[address] [place] [address] Color (U) Yellow Normal Light-Yellow , Yellow, Dark-Yellow [facility] Comment on above: Performed By: #### 2 4356-8 ####JOLENE Cantu ([id number])[facility] ([facility])[id number] [place] [address] Glucose Auto test strip (U) [Mass/Vol] Normal Normal Normal [facility] Comment on above: Performed By: #### 2 4356-8 ####JOLENE Cantu ([id number])[facility] ([facility])[address] [place] [address] Ketones (U) [Mass/Vol] TRACE Abnormal NEGATIVE [facility] Comment on above: Performed By: #### 2 4356-8 ####JOLENE Cantu ([id number])[facility] ([facility])[address] [place] [address] Leukocyte esterase Auto test strip Ql (U) 25 Robert/???L Abnormal NEGATIVE [facility] Comment on above: Performed By: #### 2 4356-8 ####JOLENE Cantu ([id number])[facility] ([facility])[address] [facility] [place] [address] Nitrite Auto test strip Ql (U) Negative Normal NEGATIVE [facility] Comment on above: Performed By: #### 2 4356-8 ####JOLENE Cantu ([id number])[facility] ([facility])[address] [place] [address] pH (U) 6.0 [pH] Normal 5.0, 5.5, 6.0, 6.5, 7.0, 7.5, 8.0 [facility] Comment on above: Performed By: #### 2 4356-8 ####JOLENE Cantu ([id number])[facility] ([facility])[address] [place] [address] Protein (U) [Mass/Vol] 30 (1+) Abnormal NEGAT ALEXANDRE, 10 (TRACE), 20 (TRACE) [facility] Comment on above: Performed By: #### 2 4356-8 ####JOLENE Cantu ([id number])[facility] ([facility])[address] [place] [address] RBC (U) [#/Vol] Negative Normal NEGATIVE [facility] Comment on above: Performed By: #### 2 4356-8 ####JOLENE Cantu ([id number])[facility] ([facility])[address] [place] [address] Specific gravity (U) [Rel density] >1.050 Normal 1.005-1.035 [facility] Comment on above: Result Comment: Spec [facility] gravity of >1.050 may be falsely elevated due to interferences with measurement. If clinically indicated, repeat testing with an alternative method is available by contacting the laboratory within 24 hours. Performed By: #### 2 4356-8 ####JOLENE Cantu ([id number])[facility] ([facility])[address] [place] [address] Urobilinogen (U) [Mass/Vol] 3 (1+) Abnormal Normal [facility] Comment on above: Result Comment: Some pigments and medications may cause a false positive urobilinogen. Performed By: #### 2 4356-8 ####JOLENE Cantu ([id number])[facility] ([facility])[address] [place] [address] Urinalysis microscopic panel Auto Ql (U)on 11-14-2023 Epithelial cells.squamous Auto (Urine sed) [#/Area] 10-25 (FEW) Normal Reference range not established. [facility] Comment on above: Performed By: #### 5 3315-8 ####JOLENE Cantu ([id number])[facility] ([facility])[address] [place] [address] Mucus Auto (Urine sed) [#/Area] 2+ /LPF Normal Reference range not established. [facility] Comment on above: Performed By: #### 5 3315-8 ####JOLENE Cantu ([id number])[facility] ([facility])[address] [place] [address] RBC Auto (Urine sed) [#/Area] 1-2 Normal NONE, 1-2, 3-5 [facility] Comment on above: Performed By: #### 5 3315-8 ####JOLENE Cantu ([id number])[facility] ([facility])[address] [place] [address] WBC Auto (Urine sed) [#/Area] 1-5 Normal 1-5, NONE [facility] Comment on above: Performed By: #### 5 3315-8 ####JOLENE Cantu ([id number])[facility] ([facility])[address] [place] [address] Vancomycinon 11-14-2023 Vancomycin [Mass/Vol] 9.2 ug/mL Normal 5.0-20.0 [facility] Comment on above: Order Comment: Vanco mycin [...] Performed By: #### 2 0578-1 ####JOLENE Cantu ([id number])[facility] ([facility])[address] [place] [address] Blood type and Indirect anti body screen panel (Bld)on 11-13-2023 ABO group Nom (Bld) O [facility] Comment on above: Performed By: #### 3 4532-2 ####JOLENE Cantu ([id number])[facility] ([facility])[address] [place] [address] Blood group antibody screen Ql Negative [facility] Comment on above: Performed By: #### 3 4532-2 ####JOLENE Cantu ([id number])[facility] ([facility])[address] [place] [address] D Ag Ql (Bld) Positive [facility] Comment on above: Performed By: #### 3 4532-2 ####JOLENE Cantu ([id number])[facility] ([facility])[address] [place] [id number] LUMBAR SPINE WO IV CONTRA STon 11-13-2023 CT LUMBAR SPINE WO IV CONTRAST Normal [facility] Choriogonadotropin.beta subu niton 11-13-2023 HCG.beta subunit Qn m[IU]/mL Normal <5 [facility] Comment on above: Order Comment: Total HCG measurement is performed using the Siemens AtellInformous immunoassay which detects intact HCG and free beta HCG subunit. This test is not indicated for use as a tumor marker. HCG testing is performed using a different test methodology at [facility] than other [facility]. Direct result comparison should only be made within the same method. Performed By: #### 2 1198-7 ####JOLENE Cantu ([id number])[facility] ([facility])[id number] [place] [address] ECG 12-LEADon 11-13-2023 ECG 12-LEAD Ventricular Rate 91 Atrial Rate 91 P-R Interval 130 QRS Duration 80 Q-T Interval 408 QTC Calculation(Bazett) 501 P Linden 84 R Linden 56 T Linden 70 QRS Count 15 Q Onset 219 P Onset 154 P Offset 205 T Offset 423 QTC Fredericia 469 Diagnosis Normal sinus rhythm Right atrial enlargement Low voltage QRS Prolonged QT Abnormal ECG No previous ECGs available See ED provider note for full interpretation and clinical correlation Confirmed by Marquis Calderón ([id number]) on 11/14/2023 12:52:38 AM Normal [facility] MR LUMBAR SPINE W AND WO IV CONTRASTon 11-13-2023 MR LUMBAR SPINE W AND WO IV CONTRAST Normal [facility] PT and aPTT panel Coag (PPP) on 11-13-2023 aPTT Coag (PPP) [Time] 29 s Normal 27-38 Un [facility] Comment on above: Order Comment: The A PTT is no longer used for monitoring Unfractionated Heparin Therapy. For monitoring Heparin Therapy, use the Heparin Assay. Performed By: #### 3 4529-8 ####JOLENE Cantu ([id number])[facility] ([facility])[address] [place] [id number] INR Coag (PPP) [Relative time] 1.1 Normal 0.9-1.1 [facility] Comment on above: Order Comment: The A PTT is no longer used for monitoring Unfractionated Heparin Therapy. For monitoring Heparin Therapy, use the Heparin Assay. Performed By: #### 3 4529-8 ####JOLENE Cantu ([id number])[facility] ([facility])[address] [place] [address] 59053 PT Coag (PPP) [Time] 12.3 s Normal 9.8-12.8 [facility] Comment on above: Order Comment: The A PTT is no longer used for monitoring Unfractionated Heparin Therapy. For monitoring Heparin Therapy, use the Heparin Assay. Performed By: #### 3 4529-8 ####JOLENE Cantu ([id number])[facility] ([facility])[address] [place] [address] 02954 XR CHEST 1 VIEWon 11-13-2023 XR CHEST 1 VIEW Normal [facility] Bacteria identifiedon 2023 Bacteria identified Cx Nom (Bld) Normal [facility] Comment on above: Performed By: #### 6 00-7 ####JOLENE Cantu ([id number])[facility] ([facility])[address] [place] [address] 90204 C reactive proteinon 024 CRP [Mass/Vol] 0.79 mg/dL Normal <1.00 [facility] Comment on above: Performed By: #### 1 988-5 ####JOLENE Cantu ([id number])[facility] ([facility])[address] [place] [address] 97996 CBC W Auto Differential pane l (Bld)on 11-12-2023 Basophils (Bld) [#/Vol] 0.02 x10*3/uL Normal 0.00-0.10 [facility] Comment on above: Performed By: #### 5 7021-8 ####JOLENE Cantu ([id number])[facility] ([facility])[address] [place] [address] 21004 Basophils/100 WBC (Bld) 0.2 % Normal 0.0-2.0 [facility] Comment on above: Performed By: #### 5 7021-8 ####JOLENE Cantu ([id number])[facility] ([facility])[id number] [place] [address] 33624 Eosinophils (Bld) [#/Vol] 0.08 x10*3/uL Normal 0.00-0.70 [facility] Comment on above: Performed By: #### 5 7021-8 ####JOLENE Cantu ([id number])[facility] ([facility])[address] [place] [address] 51949 Eosinophils/100 WBC (Bld) 0.7 % Normal 0.0-6.0 [facility] Comment on above: Performed By: #### 5 7021-8 ####JOLENE Cantu ([id number])[facility] ([facility])[address] [place] [address] 94324 Erythrocyte distribution width (RBC) [Ratio] 13.0 % Normal 11.5-14.5 [facility] Comment on above: Performed By: #### 5 7021-8 ####JOLENE Cantu ([id number])[facility] ([facility])[address] [place] [address] 86958 Hematocrit (Bld) [Volume fraction] 42.2 % Normal 36.0-46.0 [facility] Comment on above: Performed By: #### 5 7021-8 ####JOLENE Cantu ([id number])[facility] ([facility])[address] [place] [address] 33517 Hemoglobin (Bld) [Mass/Vol] 14.9 g/dL Normal 12.0-16.0 [facility] Comment on above: Performed By: #### 5 7021-8 ####JOLENE Cantu ([id number])[facility] ([facility])[address] [place] [address] 36592 Immature granulocytes (Bld) [#/Vol] 0.04 x10*3/uL Normal 0.00-0.70 [facility] Comment on above: Performed By: #### 5 7021-8 ####JOLENE Cantu ([id number])[facility] ([facility])[address] [place] [address] Immature granulocytes/100 WBC (Bld) 0.3 % Normal 0.0-0.9 [facility] Comment on above: Result Comment: Aspen ture Granulocyte Count (IG) includes promyelocytes, myelocytes and metamyelocytes but does not include bands. Percent differential counts (%) should be interpreted in the context of the absolute cell counts (cells/UL). Performed By: #### 5 7021-8 ####JOLENE Cantu ([id number])[facility] ([facility])[address] [place] [address] 51613 Lymphocytes (Bld) [#/Vol] 2.56 x10*3/uL Normal 1.20-4.80 [facility] Comment on above: Performed By: #### 5 7021-8 ####JOLENE Cantu ([id number])[facility] ([facility])[address] [place] [address] Lymphocytes/100 WBC (Bld) 22.2 % Normal 13.0-44.0 [facility] Comment on above: Performed By: #### 5 7021-8 ####JOLENE Cantu ([id number])[facility] ([facility])[address] [place] [address] 09488 MCH (RBC) [Entitic mass] 31.0 pg Normal 26.0-34.0 [facility] Comment on above: Performed By: #### 5 7021-8 ####JOLENE RONQUILLO L ([id number])[facility] ([facility])[address] [place] [address] MCHC (RBC) [Mass/Vol] 35.3 g/dL Normal 32.0-36.0 [facility] Comment on above: Performed By: #### 5 7021-8 ####JOLENE WELSHMOTZER L ([id number])[facility] ([facility])[address] [place] [address] MCV (RBC) [Entitic vol] 88 fL Normal 80-100 [facility] Comment on above: Performed By: #### 5 7021-8 ####JOLENE NELSONTZER L ([id number])[facility] ([facility])[address] [place] [address] Monocytes (Bld) [#/Vol] 0.70 x10*3/uL Normal 0.10-1.00 [facility] Comment on above: Performed By: #### 5 7021-8 ####JOLENE WELSHMOTZER L ([id number])[facility] ([facility])[address] [place] [address] Monocytes/100 WBC (Bld) 6.1 % Normal 2.0-10.0 [facility] Comment on above: Performed By: #### 5 7021-8 ####JOLENE RONQUILLO L ([id number])[facility] ([facility])[address] [place] [address] Neutrophils (Bld) [#/Vol] 8.12 x10*3/uL High 1.20-7.70 [facility] Comment on above: Result Comment: Perc ent differential counts (%) should be interpreted in the context of the absolute cell counts (cells/uL). Performed By: #### 5 7021-8 ####JOLENE RONQUILLO L ([id number])[facility] ([facility])[address] [place] [address] Neutrophils/100 WBC (Bld) 70.5 % Normal 40.0-80.0 [facility] Comment on above: Performed By: #### 5 7021-8 ####JOLENE WELSHMOTZER L ([id number])[facility] ([facility])[address] [place] [address] Nucleated RBC/100 WBC (Bld) [Ratio] 0.0 /100 WBCs Normal 0.0-0.0 [facility] Comment on above: Performed By: #### 5 7021-8 ####JOLENE WELSHMOTZER L ([id number])[facility] ([facility])[address] [place] [address] Platelets (Bld) [#/Vol] 366 x10*3/uL Normal 150-450 [facility] Comment on above: Performed By: #### 5 7021-8 ####JOLENE Cantu ([id number])[facility] ([facility])[address] [place] [address] RBC (Bld) [#/Vol] 4.80 x10*6/uL Normal 4.00-5.20 [facility] Comment on above: Performed By: #### 5 7021-8 ####JOLENE Cantu ([id number])[facility] ([facility])[address] [place] [address] WBC (Bld) [#/Vol] 11.5 x10*3/uL High 4.4-11.3 [facility] Comment on above: Performed By: #### 5 7021-8 ####JOLENE Cantu ([id number])[facility] ([facility])[address] [place] [address] Comprehensive metabolic 2000 panelon 11-12-2023 Albumin BCP dye [Mass/Vol] 4.2 g/dL Normal 3.4-5.0 [facility] Comment on above: Performed By: #### 2 4323-8 ####JOLENE Cantu ([id number])[facility] ([facility])[address] [place] [address] ALP [Catalytic activity/Vol] 86 U/L Normal 33-110 [facility] Comment on above: Performed By: #### 2 4323-8 ####JOLENE Cantu ([id number])[facility] ([facility])[address] [place] [address] ALT With P-5'-P [Catalytic activity/Vol] 19 U/L Normal 7-45 [facility] Comment on above: Result Comment: Katia ents treated with Sulfasalazine may generate falsely decreased results for ALT. Performed By: #### 2 4323-8 ####JOLENE Cantu ([id number])[facility] ([facility])[address] [place] [address] Anion gap [Moles/Vol] 15 mmol/L Normal 10-20 [facility] Comment on above: Performed By: #### 2 4323-8 ####JOLENE Cantu ([id number])[facility] ([facility])[address] [place] [address] AST With P-5'-P [Catalytic activity/Vol] 22 U/L Normal 9-39 [facility] Comment on above: Performed By: #### 2 4323-8 ####JOLENE Cantu ([id number])[facility] ([facility])[address] [place] [address] Bilirubin [Mass/Vol] 0.5 mg/dL Normal 0.0-1.2 [facility] Comment on above: Performed By: #### 2 4323-8 ####JOLENE Cantu ([id number])[facility] ([facility])[address] [place] [address] Calcium [Mass/Vol] 9.1 mg/dL Normal 8.6-10.6 [facility] Comment on above: Performed By: #### 2 4323-8 ####JOLENE Cantu ([id number])[facility] ([facility])[address] [place] [address] Chloride [Moles/Vol] 103 mmol/L Normal 98-107 [facility] Comment on above: Performed By: #### 2 4323-8 ####JOLENE Cantu ([id number])[facility] ([facility])[address] [place] [address] CO2 [Moles/Vol] 24 mmol/L Normal 21-32 [facility] Comment on above: Performed By: #### 2 4323-8 ####JOLENE RONQUILLO L ([id number])[facility] ([facility])[address] [place] [address] Creatinine [Mass/Vol] 0.84 mg/dL Normal 0.50-1.05 [facility] Comment on above: Performed By: #### 2 4323-8 ####JOLENE RONQUILLO L ([id number])[facility] ([facility])[address] [place] [address] Glomerular filtration rate/1.73 sq M.predicted 87 mL/min/1.73m*2 Normal >60 [facility] Comment on above: Result Comment: Calc ulations of estimated GFR are performed using the 2020 CKD-EPI Study Refit equation without the race variable for the IDMS-Traceable creatinine methods.https://jasn.asnjournals.org/content/early/A SN.5323051875 Performed By: #### 2 4323-8 ####JOLENE RONQUILLO L ([id number])[facility] ([facility])[address] [place] [address] Glucose [Mass/Vol] 94 mg/dL Normal 74-99 [facility] Comment on above: Performed By: #### 2 4323-8 ####JOLENE RONQUILLO L ([id number])[facility] ([facility])[address] [place] [address] Potassium [Moles/Vol] 3.6 mmol/L Normal 3.5-5.3 [facility] Comment on above: Performed By: #### 2 4323-8 ####JOLENE WELSHMOREGINALDO L (57689)[facility] ([facility])[address] [place] [address] Protein [Mass/Vol] 8.1 g/dL Normal 6.4-8.2 [facility] Comment on above: Performed By: #### 2 4323-8 ####JOLENE RONQUILLO L (43857)[facility] ([facility])[address] [place] [address] Sodium [Moles/Vol] 138 mmol/L Normal 136-145 [facility] Comment on above: Performed By: #### 2 4323-8 ####JOLENE RONQUILLO L (87751)[facility] ([facility])[address] [place] [address] Urea nitrogen [Mass/Vol] 12 mg/dL Normal 6-23 [facility] Comment on above: Performed By: #### 2 4323-8 ####JOLENE Cantu (86093)[facility] ([facility])[address] [place] [address] ESR Westergren method (Bld) [Velocity]on 11-12-2023 ESR (Bld) [Velocity] 27 mm/h High 0-20 [facility] Comment on above: Performed By: #### 4 537-7 ####JOLENE Cantu ([id number])[facility] ([facility])[address] [place] [address] Automated basophil %Ordered By: Dalton Ceja on 11-10-2023 Basophils/100 WBC (Bld) 0.2 % Normal . [facility] Comment on above: Performed By: #### C DEYVI PARKINSON, CBC #### [address] Automated basophil countOrde red By: Dalton Ceja on 11-10-2023 Basophils (Bld) [#/Vol] 0.0 10*3/uL Normal 0.0-0.2 [facility] Comment on above: Performed By: #### C DEYVI PARKINSON, CBC #### [address] Automated blood monocyte cou ntOrdered By: Dalton Ceja on 11-10-2023 Monocytes (Bld) [#/Vol] 0.7 10*3/uL Normal 0.0-0.8 [facility] Comment on above: Performed By: #### C DEYVI PARKINSON, CBC #### [address] Automated eosinophil %Ordere d By: Dalton Ceja on 11-10-2023 Eosinophils/100 WBC (Bld) 1.2 % Normal . [facility] Comment on above: Performed By: #### C DEYVI PARKINSON, CBC #### [place] [address] [place] Automated eosinophil countOr dered By: Dalton Ceja on 11-10-2023 Eosinophils (Bld) [#/Vol] 0.1 10*3/uL Normal 0.0-0.45 [facility] Comment on above: Performed By: #### C DEYVI PARKINSON, CBC #### [facility] [address] Automated monocyte %Ordered By: Dalton Ceja on 11-10-2023 Monocytes/100 WBC (Bld) 6.7 % Normal . [facility] Comment on above: Performed By: #### C DEYVI PARKINSON, CBC #### [address] Automated neutrophil %Ordere d By: Dalton Ceja on 11-10-2023 Neutrophils/100 WBC (Bld) 68.2 % Normal . [facility] Comment on above: Performed By: #### C DEYVI PARKINSON, CBC #### [address] Bacterial blood cultureOrder ed By: Dalton Ceja on 11-10-2023 Bacteria identified Cx Nom (Bld) NO GROWTH 5 DAYS [facility] Bacteria identified Cx Nom (Bld) Bacterial blood culture [facility] Bacteria identified Cx Nom (Bld) NO GROWTH 5 DAYS [facility] Basophils Auto (Bld) [#/Vol] Ordered By: Dalton Ceja on 11-10-2023 Basophils (Bld) [#/Vol] Automated basophil count 0.0-0.2 [facility] Basophils/100 WBC Auto (Bld) Ordered By: Dalton Ceja on 11-10-2023 Basophils/100 WBC (Bld) Automated basophil % . [facility] Blood Cultureon 11-10-2023 Bacteria identified Cx Nom (Bld) NO GROWTH 5 DAYS PERFORMED BY: [place] [address] PATHOLOGIST PILLOWCASE CUTTER JASON WILSON M.D. Normal [facility] Comment on above: Performed By: #### C DEYVI PARKINSON, CBC #### [facility] [address] [place] [address] C reactive protein [Mass/vol ume] in Serum or PlasmaOrdered By: Dalton Ceja on 11-10-2023 CRP [Mass/Vol] 0.9 mg/dL High 0.0-0.5 [facility] CRP [Mass/Vol] C reactive protein [Mass/volume] in Serum or Plasma High 0.0-0.5 [facility] C-Reactive Proteinon 024 C-Reactive Protein 0.9 mg/dL High 0.0-0.5 [facility] Comment on above: Result Comment: PERF ORMED BY: [place] [address] PATHOLOGIST PILLOWCASE CUTTER JASON WILSON M.D. Performed By: #### C DEYVI PARKINSON, CBC #### [address] Complete Blood Count Auto Di ffon 11-10-2023 Mean Corpuscular HGB Conc 33.3 g/dL Normal 32.0-35.0 [facility] Comment on above: Performed By: #### C DEYVI PARKINSON, CBC #### [address] Monocytes/100 WBC (Bld) 19.08 % Normal 0.00-20.00 [facility] Comment on above: Performed By: #### C DEYVI PARKINSON, CBC #### [address] NRBC% 0.0 /100{WBC} Normal 0-0.5 [facility] Comment on above: Performed By: #### C DEYVI PARKINSON, CBC #### [place] [address] [place] Eosinophils Auto (Bld) [#/Vo l]Ordered By: Dalton Ceja on 11-10-2023 Eosinophils (Bld) [#/Vol] Automated eosinophil count 0.0-0.45 [facility] Eosinophils/100 WBC Auto (Bl d)Ordered By: Dalton Ceja on 11-10-2023 Eosinophils/100 WBC (Bld) Automated eosinophil % . [facility] Erythrocyte Sedimentation Ra karen 11-10-2023 ESR (Bld) [Velocity] 33 mm/h High 0-19 [facility] Comment on above: Result Comment: PERF ORMED BY: [place] [address] PATHOLOGIST PILLOWCASE CUTTER JASON WILSON M.D. Performed By: #### C DEYVI PARKINSON, CBC #### [address] Erythrocyte distribution wid th Auto (RBC) [Ratio]Ordered By: Dalton Ceja on 11-10-2023 Erythrocyte distribution width (RBC) [Ratio] Erythrocyte distribution width [Ratio] by Automated count 11.9-15.3 [facility] Erythrocyte distribution wid th [Ratio] by Automated countOrdered By: Dalton Ceja on 11-10-2023 Erythrocyte distribution width (RBC) [Ratio] 13.6 % Normal 11.9-15.3 [facility] Comment on above: Performed By: #### C DEYVI PARKINSON CBC #### [address] Erythrocyte sedimentation ra te by Photometric methodOrdered By: Dalton Ceja on 11-10-2023 ESR Photometric method (Bld) [Velocity] 33 mm/hr High 0-19 [facility] ESR Photometric method (Bld) [Velocity] Erythrocyte sedimentation rate by Photometric method High 0-19 [facility] Erythrocytes [#/volume] in B lood by Automated countOrdered By: Dalton Ceja on 11-10-2023 RBC (Bld) [#/Vol] 4.15 10*6/uL Normal 3.60-5.[address] [facility] Comment on above: Performed By: #### C DEYVI PARKINSON, CBC #### [address] Hematocrit Auto (Bld) [Volum e fraction]Ordered By: Dalton Ceja on 11-10-2023 Hematocrit (Bld) [Volume fraction] Hematocrit [Volume Fraction] of Blood by Automated count 34.0-46.4 [facility] Hematocrit [Volume Fraction] of Blood by Automated countOrdered By: Dalton Ceja on 11-10-2023 Hematocrit (Bld) [Volume fraction] 39.0 % Normal 34.0-46.4 [facility] Comment on above: Performed By: #### C DEYVI PARKINSON, CBC #### [facility] [address] [place] [address] [place] Hemoglobin [Mass/volume] in BloodOrdered By: aDlton Ceja on 11-10-2023 Hemoglobin (Bld) [Mass/Vol] 13.0 g/dL Normal 11.8-15.4 [facility] Comment on above: Performed By: #### C DEYVI PARKINSON, CBC #### [facility] [address] Hemoglobin (Bld) [Mass/Vol] Hemoglobin [Mass/volume] in Blood 11.8-15.4 [facility] Lactate [Moles/volume] in Se rum or PlasmaOrdered By: Dalton Ceja on 11-10-2023 Lactate [Moles/Vol] 0.7 mmol/L Normal 0.5-2.[address] [facility] Comment on above: Result Comment: PERF ORMED BY: [place] [address] PATHOLOGIST PILLOWCASE CUTTER JASON WILSON M.D. Performed By: #### U HCG, ADDONUAPLUS #### [facility] [address] [place] [address] Lactate [Moles/Vol] Lactate [Moles/volum e] in Serum or Plasma 0.5-2.2 [facility] Leukocytes [#/volume] correc lisa for nucleated erythrocytes in Blood by Automated counOrdered By: Dalton Ceja on 11-10-2023 WBC corrected for nucl RBC Auto (Bld) [#/Vol] 10.1 10*3/uL 3.8-11.6 [facility] WBC corrected for nucl RBC Auto (Bld) [#/Vol] Leukocytes [#/volume] corrected for nucleated erythrocytes in Blood by Automated coun 3.8-11. [facility] Leukocytes [#/volume] in Blo od by Automated countOrdered By: Dalton Ceja on 11-10-2023 WBC (Bld) [#/Vol] 10.1 10*3/uL Normal 3.8-11.[address] [facility] Comment on above: Performed By: #### C DEYVI PARKINSON, CBC #### [facility] [address] Lymphocytes Auto (Bld) [#/Vo l]Ordered By: Dalton Ceja on 11-10-2023 Lymphocytes (Bld) [#/Vol] Lymphocytes [#/volume] in Blood by Automated count 1.00-4.8 [facility] Lymphocytes [#/volume] in Bl ood by Automated countOrdered By: Dalton Ceja on 11-10-2023 Lymphocytes (Bld) [#/Vol] 2.4 10*3/uL Normal 1.00-4.8 [facility] Comment on above: Performed By: #### C DEYVI PARKINSON, CBC #### [address] Lymphocytes/100 WBC Auto (Bl d)Ordered By: Dalton Ceja on 11-10-2023 Lymphocytes/100 WBC (Bld) Lymphocytes/100 leukocytes in Blood by Automated count . [facility] Lymphocytes/100 leukocytes i n Blood by Automated countOrdered By: Dalton Ceja on 11-10-2023 Lymphocytes/100 WBC (Bld) 23.7 % Normal . [facility] Comment on above: Performed By: #### C DEYVI PARKINSON, CBC #### [address] MCH Auto (RBC) [Entitic mass ]Ordered By: Dalton Ceja on 11-10-2023 MCH (RBC) [Entitic mass] MCH [Entitic mass] by Automated count 24.7-34.3 [facility] MCH [Entitic mass] by Automa lisa countOrdered By: Dalton Ceja on 11-10-2023 MCH (RBC) [Entitic mass] 31.3 pg Normal 24.7-34.3 [facility] Comment on above: Performed By: #### C DEYVI PARKINSON, CBC #### [address] MCHC Auto (RBC) [Mass/Vol]Or dered By: Dalton Ceja on 11-10-2023 MCHC (RBC) [Mass/Vol] 33.3 g/dL 32.0-35.0 [facility] MCHC (RBC) [Mass/Vol] MCHC [Mass/volume] by Automated count 32.0-35.0 [facility] MCV Auto (RBC) [Entitic vol] Ordered By: Dalton Ceja on 11-10-2023 MCV (RBC) [Entitic vol] MCV [Entitic volume] by Automated count 80-100 [facility] MCV [Entitic volume] by Auto mated countOrdered By: Dalton Ceja on 11-10-2023 MCV (RBC) [Entitic vol] 94.0 fL Normal 80-100 [facility] Comment on above: Performed By: #### C MP, CUBLD, CBC #### [facility] [address] Monocyte distribution width [Entitic volume] in Blood by AutomatedOrdered By: Dalton Ceja on 11-10-2023 Monocyte distribution width Auto (Bld) [Entitic vol] 19.08 % 0.00-20.00 [facility] Monocyte distribution width Auto (Bld) [Entitic vol] Monocyte distribution width [Entitic volume] in Blood by Automated 0.00-20.00 [facility] Monocytes Auto (Bld) [#/Vol] Ordered By: Dalton Ceja on 11-10-2023 Monocytes (Bld) [#/Vol] Automated blood monocyte count 0.0-0.8 [facility] Monocytes/100 WBC Auto (Bld) Ordered By: Dalton Ceja on 11-10-2023 Monocytes/100 WBC (Bld) Automated monocyte % . [facility] Neutrophils Auto (Bld) [#/Vo l]Ordered By: Dalton Ceja on 11-10-2023 Neutrophils (Bld) [#/Vol] Neutrophils [#/volume] in Blood by Automated count 1.8-7.7 [facility] Neutrophils [#/volume] in Bl ood by Automated countOrdered By: Datlon Ceja on 11-10-2023 Neutrophils (Bld) [#/Vol] 6.9 10*3/uL Normal 1.8-7.7 [facility] Comment on above: Performed By: #### C DEYVI PARKINSON, CBC #### [facility] [address] [place] [address] [place] Neutrophils/100 WBC Auto (Bl d)Ordered By: Dalton Ceja on 11-10-2023 Neutrophils/100 WBC (Bld) Automated neutrophil % . [facility] Nucleated erythrocytes [Pres ence] in Blood by Automated countOrdered By: Dalton Ceja on 11-10-2023 Nucleated RBC Auto Ql (Bld) 0.0 /100{WBC} 0-0.5 [facility] Nucleated RBC Auto Ql (Bld) Nucleated erythrocytes [Presence] in Blood by Automated count 0-0.5 [facility] Platelet mean volume Auto (B ld) [Entitic vol]Ordered By: Dalton Ceja on 11-10-2023 Platelet mean volume (Bld) [Entitic vol] Platelet mean volume [Entitic volume] in Blood by Automated count 6.3-10.7 [facility] Platelet mean volume [Entiti c volume] in Blood by Automated countOrdered By: Dalton Ceja on 11-10-2023 Platelet mean volume (Bld) [Entitic vol] 8.9 fL Normal 6.3-10.7 [facility] Comment on above: Performed By: #### C DEYVI PARKINSON, CBC #### [facility] [address] [place] [address] [place] Platelets Auto (Bld) [#/Vol] Ordered By: Dalton Ceja on 11-10-2023 Platelets (Bld) [#/Vol] Platelets [#/volume] in Blood by Automated count 150-450 [facility] Platelets [#/volume] in Bloo d by Automated countOrdered By: Dalton Ceja on 11-10-2023 Platelets (Bld) [#/Vol] 300 10*3/uL Normal 150-450 [facility] Comment on above: Performed By: #### C DEYVI PARKINSON, CBC #### [facility] [address] [place] [address] [place] RBC Auto (Bld) [#/Vol]Ordere d By: Dalton Ceja on 11-10-2023 RBC (Bld) [#/Vol] Erythrocytes [#/volu me] in Blood by Automated count 3.60-5.00 [facility] WBC Auto (Bld) [#/Vol]Ordere d By: Daltonleatha Ceja on 11-10-2023 WBC (Bld) [#/Vol] Leukocytes [#/volume ] in Blood by Automated count 3.8-11.6 [facility] Basic metabolic 2000 panelon 11-09-2023 Anion gap [Moles/Vol] 12 mmol/L Normal 10-20 [facility] Comment on above: Performed By: #### 2 4321-2 #### GIOVANNI BURNETT ([id number]) [facility] ([facility]) [address] [place] [address] Calcium [Mass/Vol] 8.5 mg/dL Low 8.6-10.3 [facility] Comment on above: Performed By: #### 2 4321-2 #### GIOVANNI BURNETT ([id number]) [facility] ([facility]) [address] [place] [address] Chloride [Moles/Vol] 105 mmol/L Normal 98-107 [facility] Comment on above: Performed By: #### 2 4321-2 #### GIOVANNI BURNETT ([id number]) [facility] ([facility]) [address] [place] [address] CO2 [Moles/Vol] 24 mmol/L Normal 21-32 [facility] Comment on above: Performed By: #### 2 4321-2 #### GIOVANNI BURNETT ([id number]) [facility] ([facility]) [facility] [place] [address] Creatinine [Mass/Vol] 0.77 mg/dL Normal 0.50-1.05 [facility] Comment on above: Performed By: #### 2 4321-2 #### GIOVANNI BURNETT ([id number]) [facility] ([facility]) [address] [place] [address] GFR/1.73 sq M.predicted MDRD (S/P/Bld) [Vol rate/Area] mL/min/{1.73_m2} Normal >60 [facility] Comment on above: Result Comment: Calc ulations of estimated GFR are performed using the 2020 CKD-EPI Study Refit equation without the race variable for the IDMS-Traceable creatinine methods. https://jasn.asnjournals.org/content//ASN.90720 60388 Performed By: #### 2 4321-2 #### GIOVANNI BURNETT ([id number]) [facility] ([facility]) [address] [place] [address]898 Glucose [Mass/Vol] 104 mg/dL High 74-99 [facility] Comment on above: Performed By: #### 2 4321-2 #### GIOVANNI BURNETT ([id number]) [facility] ([facility]) [address] [place] [address] 44386 Potassium [Moles/Vol] 3.7 mmol/L Normal 3.5-5.3 [facility] Comment on above: Performed By: #### 2 4321-2 #### GIOVANNI BURNETT ([id number]) [facility] ([facility]) [address] [place] [address] 36162 Sodium [Moles/Vol] 137 mmol/L Normal 136-145 [facility] Comment on above: Performed By: #### 2 4321-2 #### GIOVANNI BURNETT ([id number]) [facility] ([facility]) [address] [place] [address] 23358 Urea nitrogen [Mass/Vol] 10 mg/dL Normal 6-23 [facility] Comment on above: Performed By: #### 2 4321-2 #### GIOVANNI BURNETT ([id number]) [facility] ([facility]) [address] [place] [address] 38399 C reactive proteinon 024 CRP [Mass/Vol] 1.06 mg/dL High <1.00 [facility] Comment on above: Performed By: #### 1 988-5 #### GIOVANNI BURNETT ([id number]) [facility] ([facility]) [address] [place] [address] CBC W Auto Differential pane l (Bld)on 11-09-2023 Basophils (Bld) [#/Vol] 0.01 x10*3/uL Normal 0.00-0.10 [facility] Comment on above: Performed By: #### 5 7021-8 #### GIOVANNI BURNETT (48096) [facility] ([facility]) [address] [place] [address] Basophils/100 WBC (Bld) 0.1 % Normal 0.0-2.0 [facility] Comment on above: Performed By: #### 5 7021-8 #### GIOVANNI BURNETT ([id number]) [facility] ([facility]) [address] [place] [address] Eosinophils (Bld) [#/Vol] 0.10 x10*3/uL Normal 0.00-0.70 [facility] Comment on above: Performed By: #### 5 7021-8 #### GIOVANNI BURNETT ([id number]) [facility] ([facility]) [address] [place] [address] Eosinophils/100 WBC (Bld) 1.0 % Normal 0.0-6.0 [facility] Comment on above: Performed By: #### 5 7021-8 #### GIOVANNI BURNETT ([id number]) [facility] ([facility]) [address] [place] [address] Erythrocyte distribution width (RBC) [Ratio] 12.8 % Normal 11.5-14.5 [facility] Comment on above: Performed By: #### 5 7021-8 #### GIOVANNI BURNETT (19792) [facility] ([facility]) [address] [place] [address] Hematocrit (Bld) [Volume fraction] 41.3 % Normal 36.0-46.0 [facility] Comment on above: Performed By: #### 5 7021-8 #### GIOVANNI BURNETT ([id number]) [facility] ([facility]) [address] [place] [address] Hemoglobin (Bld) [Mass/Vol] 13.5 g/dL Normal 12.0-16.0 [facility] Comment on above: Performed By: #### 5 7021-8 #### GIOVANNI BURNETT ([id number]) [facility] ([facility]) [address] [place] [address]2478 Immature granulocytes (Bld) [#/Vol] 0.03 x10*3/uL Normal 0.00-0.70 [facility] Comment on above: Performed By: #### 5 7021-8 #### GIOVANNI BURNETT ([id number]) [facility] ([facility]) [address] [place] [address] 18250 Immature granulocytes/100 WBC (Bld) 0.3 % Normal 0.0-0.9 [facility] Comment on above: Result Comment: Aspen ture Granulocyte Count (IG) includes promyelocytes, myelocytes and metamyelocytes but does not include bands. Percent differential counts (%) should be interpreted in the context of the absolute cell counts (cells/UL). Performed By: #### 5 7021-8 #### GIOVANNI BURNETT ([id number]) [facility] ([facility]) [address] [place] [address] 73991 Lymphocytes (Bld) [#/Vol] 2.13 x10*3/uL Normal 1.20-4.80 [facility] Comment on above: Performed By: #### 5 7021-8 #### GIOVANNI BURNETT (69504) [facility] ([facility]) [address] [place] [address] 79458 Lymphocytes/100 WBC (Bld) 21.4 % Normal 13.0-44.0 [facility] Comment on above: Performed By: #### 5 7021-8 #### GIOVANNI BURNETT ([id number]) [facility] ([facility]) [address] [place] [address] 23101 MCH (RBC) [Entitic mass] 31.0 pg Normal 26.0-34.0 [facility] Comment on above: Performed By: #### 5 7021-8 #### GIOVANNI BURNETT ([id number]) [facility] ([facility]) [address] [place] [address] 45352 MCHC (RBC) [Mass/Vol] 32.7 g/dL Normal 32.0-36.0 [facility] Comment on above: Performed By: #### 5 7021-8 #### GIOVANNI BURNETT ([id number]) [facility] ([facility]) [address] [place] [address] 98092 MCV (RBC) [Entitic vol] 95 fL Normal 80-100 [facility] Comment on above: Performed By: #### 5 7021-8 #### GIOVANNI BURNETT ([id number]) [facility] ([facility]) [address] [place] [address] 52005 Monocytes (Bld) [#/Vol] 0.55 x10*3/uL Normal 0.10-1.00 [facility] Comment on above: Performed By: #### 5 7021-8 #### GIOVANNI BURNETT ([id number]) [facility] ([facility]) [address] [place] [address] 03816 Monocytes/100 WBC (Bld) 5.5 % Normal 2.0-10.0 [facility] Comment on above: Performed By: #### 5 7021-8 #### GIOVANNI BURNETT ([id number]) [facility] ([facility]) [address] [place] [address] 48502 Neutrophils (Bld) [#/Vol] 7.14 x10*3/uL Normal 1.20-7.70 [facility] Comment on above: Result Comment: Perc ent differential counts (%) should be interpreted in the context of the absolute cell counts (cells/uL). Performed By: #### 5 7021-8 #### GIOVANNI BURNETT ([id number]) [facility] ([facility]) [address] [place] [address] 42801 Neutrophils/100 WBC (Bld) 71.7 % Normal 40.0-80.0 [facility] Comment on above: Performed By: #### 5 7021-8 #### GIOVANNI BURNETT ([id number]) [facility] ([facility]) [facility] [place] [address] Nucleated RBC/100 WBC (Bld) [Ratio] 0.0 /100 WBCs Normal 0.0-0.0 [facility] Comment on above: Performed By: #### 5 7021-8 #### GIOVANNI BURNETT (49241) [facility] ([facility]) [address] [place] [address] 33083 Platelets (Bld) [#/Vol] 308 x10*3/uL Normal 150-450 [facility] Comment on above: Performed By: #### 5 7021-8 #### GIOVANNI BURNETT ([id number]) [facility] ([facility]) [address] [place] [address] RBC (Bld) [#/Vol] 4.36 x10*6/uL Normal 4.00-5.20 [facility] Comment on above: Performed By: #### 5 7021-8 #### GIOVANNI BURNETT ([id number]) [facility] ([facility]) [address] [place] [address] 49177 WBC (Bld) [#/Vol] 10.0 x10*3/uL Normal 4.4-11.3 [facility] Comment on above: Performed By: #### 5 7021-8 #### GIOVANNI BURNETT ([id number]) [facility] ([facility]) [address] [place], [place] [address] CT LUMBAR SPINE W IV CONTRAS Ton 11-09-2023 CT LUMBAR SPINE W IV CONTRAST STUDY: CT Lumbar Spine with IV Contrast; 11/09/2023 at 2:52 PM. INDICATION: Pain and swelling. COMPARISON: MR lumbar 10/31/2023, 10/31/2022. ACCESSION NUMBER(S): [id number] ORDERING CLINICIAN: JAROCHO TRONCOSO TECHNIQUE: CT of [...] is recommended. Signed by Doc Vela MD [facility] ESR Westergren method (Bld) [Velocity]on 11-09-2023 ESR (Bld) [Velocity] 34 mm/h High 0-20 [facility] Comment on above: Performed By: #### 4 537-7 #### DAVILA LEX ([id number]) [facility] ([facility]) [address] [place] [address] MR THORACIC SPINE WO IV CONT Sarabjit 11-08-2023 MR THORACIC SPINE WO IV CONTRAST Interpreted By: Peter Smith, STUDY: MR THORACIC SPINE WO IV CONTRAST; 11/08/2023 8:25 am INDICATION: Signs/Symptoms:presurgi bryce planning for reimplant of thoracic spinal cord stimulator leads. COMPARISON: None. ACCESSION NUMBER(S): [id number] ORDERING CLINICIAN: CHIRAG REYNOSO TECHNIQUE: Sagittal T1, [...] Peter Smith 11/08/2023 9:53 AM Dictation workstation: [id number] [facility] ED Note-Physicianoctavia 11-06-19 ED Note-Physician Normal [facility] Comment on above: Result Comment: Elec tronically Signed By: Zhane Castro PA-C\.br\Date and Time Signed: 11/05/23 23:31 EDT\.br\Electronically Co-Signed By: Pedro Pablo Fletcher DO\.br\Date and Time Co-Signed: 11/06/23 01:08 EDT Staphylococcus aureus.methic illin resistant isolateon 11-06-2023 MRSA isol Org specific cx Ql (Nose) Test: Staphylococcus aureus/MRSA colonization, Culture Specimen Source: Nares/Axilla/Groin Specimen Type: Swab Specimen Date: 11/06/2023930 Result Date: 11/08/20231202 Result Status: Final result Abnormal: No Resulting Lab: [facility] [id number] [place] [address] CULTURE No Staphylococcus aureus isolated Normal [facility] Comment on above: Performed By: #### 5 2969-3 #### JOLENE Cantu ([id number]) [facility] ([facility]) [address] [place] [address] ED Clinical Summaryon 2023 ED Clinical Summary Normal [facility] ED Patient Education Noteon 11-05-2023 ED Patient Education Note Normal [facility] ED Patient Summaryon 024 ED Patient Summary Normal [facility] ED Clinical Summaryon 2023 ED Clinical Summary (Inserted Image. Darlene ble to display) [address] [address] ED Clinical Summary Person Information Name: Jerad Tracy/[facility]_Jalen Age: 48 Years : 1975 Sex: Female PCP: Marital Status: Phone: Race: White Ethnicity: Not or Language: Citizen Of [place] Visit Reason: Back pain; back pain Acuity: 4 Enc Type: Emergency Med Service: Emergency Medicine Arrival: 11/02/2023 14:44:17 Discharge: 11/02/2023 17:11:00 LOS: 000 02:27 Checkin: 11/02/2023 14:44:17 Checkout: 11/02/2023 17:11:00 Dispo Type: Home or Self Care Address: [place] [place] [id number] Provider Notes: Diagnosis: 1:Chronic low back pain [...] Home, Self Patient Education Information: CHRONIC PAIN [facility] Poison Help line: . [facility] Hotline: [place] Tobacco Quit Line: [place], [place]) [address]: [phone] [place], [place]) [address]: [phone] [facility] [address] [place], [place]: [phone] [facility] ED Note-Physicianon 11-02-19 ED Note-Physician Chief Complaint [...] of motion. Pulses and sensation intact] Skin: [[place], warm, dry, no injury, no rashes] Neuro: [...] _ ? NEXUS C-spine Criteria: _ ? Grady Ankle Rule: _ ? Grady Knee Rule: _ ? Wells Criteria for [...] and s (more content not included)... Normal [facility] C reactive proteinon 024 CRP [Mass/Vol] 0.43 mg/dL Normal <1.00 [facility] Comment on above: Performed By: #### 1 988-5 ####JOLENE Cantu ([id number])[facility] ([facility])[address] [place] [address] CBC panel Auto (Bld)on 10-31 Erythrocyte distribution width (RBC) [Ratio] 13.0 % Normal 11.5-14.5 [facility] Comment on above: Performed By: #### 5 8410-2 ####JOLENE Cantu (22159)[facility] ([facility])[address] [place] [address] Hematocrit (Bld) [Volume fraction] 39.1 % Normal 36.0-46.0 [facility] Comment on above: Performed By: #### 5 8410-2 ####JOLENE Cantu (27511)[facility] ([facility])[address] [place] [address] Hemoglobin (Bld) [Mass/Vol] 12.8 g/dL Normal 12.0-16.0 [facility] Comment on above: Performed By: #### 5 8410-2 ####JOLENE Cantu ([id number])[facility] ([facility])[address] [place] [address] MCH (RBC) [Entitic mass] 31.4 pg Normal 26.0-34.0 [facility] Comment on above: Performed By: #### 5 8410-2 ####JOLENE Cantu ([id number])[facility] ([facility])[address] [place] [address] MCHC (RBC) [Mass/Vol] 32.7 g/dL Normal 32.0-36.0 [facility] Comment on above: Performed By: #### 5 8410-2 ####JOLENE Cantu (75378)[facility] ([facility])[address] [place] [address] MCV (RBC) [Entitic vol] 96 fL Normal 80-100 [facility] Comment on above: Performed By: #### 5 8410-2 ####JOLENE Cantu (07484)[facility] ([facility])[address] [place] [address] Nucleated RBC/100 WBC (Bld) [Ratio] 0.0 /100 WBCs Normal 0.0-0.0 [facility] Comment on above: Performed By: #### 5 8410-2 ####JOLENE Cantu (65477)[facility] ([facility])[address] [place] [address] Platelets (Bld) [#/Vol] 304 x10*3/uL Normal 150-450 [facility] Comment on above: Performed By: #### 5 8410-2 ####JOLENE Cantu ([id number])[facility] ([facility])[address] [place] [address] RBC (Bld) [#/Vol] 4.08 x10*6/uL Normal 4.00-5.20 [facility] Comment on above: Performed By: #### 5 8410-2 ####JOLENE Cantu ([id number])[facility] ([facility])[address] [place] [address] WBC (Bld) [#/Vol] 6.2 x10*3/uL Normal 4.4-11.3 [facility] Comment on above: Performed By: #### 5 8410-2 ####JOLENE Cantu (68392)[facility] ([facility])[address] [place] [address] ESR Westergren method (Bld) [Velocity]on 11-01-2023 ESR (Bld) [Velocity] 44 mm/h High 0-20 [facility] Comment on above: Performed By: #### 4 537-7 ####JOLENE Cantu (12826)[facility] ([facility])[address] [place] [address] MRI LUMBAR SPINE W WO CONTRA Kris 11-01-2023 MRI LUMBAR SPINE W WO [...] Johnson Shin MD 11/01/23 Final result Normal [facility] Renal function 2000 panelon 11-01-2023 Albumin BCP dye [Mass/Vol] 3.7 g/dL Normal 3.4-5.0 [facility] Comment on above: Performed By: #### 2 4362-6 ####JOLENE Cantu (62058)[facility] ([facility])[address] [place] [address] Anion gap [Moles/Vol] 12 mmol/L Normal 10-20 [facility] Comment on above: Performed By: #### 2 4362-6 ####JOLENE Cantu (05846)[facility] ([facility])[address] [place] [address] Calcium [Mass/Vol] 8.4 mg/dL Low 8.6-10.6 [facility] Comment on above: Performed By: #### 2 4362-6 ####JOLENE Cantu (12481)[facility] ([facility])[address] [place] [address] Chloride [Moles/Vol] 105 mmol/L Normal 98-107 [facility] Comment on above: Performed By: #### 2 4362-6 ####JOLENE Cantu (02554)[facility] ([facility])[address] [place] [address] CO2 [Moles/Vol] 25 mmol/L Normal 21-32 [facility] Comment on above: Performed By: #### 2 4362-6 ####JOLENE Cantu (46629)[facility] ([facility])[address] [place] [address] Creatinine [Mass/Vol] 0.73 mg/dL Normal 0.50-1.05 [facility] Comment on above: Performed By: #### 2 4362-6 ####JOLENE Cantu (52649)[facility] ([facility])[address] [place] [address] GFR/1.73 sq M.predicted MDRD (S/P/Bld) [Vol rate/Area] mL/min/{1.73_m2} Normal >60 [facility] Comment on above: Result Comment: Calc ulations of estimated GFR are performed using the 2020 CKD-EPI Study Refit equation without the race variable for the IDMS-Traceable creatinine methods.https://jasn.asnjournals.org/content//A SN.0495565891 Performed By: #### 2 4362-6 ####JOLENE Cantu (99337)[facility] ([facility])[address] [place] [address] Glucose [Mass/Vol] 84 mg/dL Normal 74-99 [facility] Comment on above: Performed By: #### 2 4362-6 ####JOLENE Cantu (84676)[facility] ([facility])[address] [place] [address] Phosphate [Mass/Vol] 3.1 mg/dL Normal 2.5-4.9 [facility] Comment on above: Result Comment: The performance characteristics of phosphorus testing in heparinized plasma have been validated by the individual laboratory site where testing is performed. Testing on heparinized plasma is not approved by the FDA; however, such approval is not necessary. Performed By: #### 2 4362-6 ####JOLENE Cantu (68645)[facility] ([facility])[address] [place] [address] Potassium [Moles/Vol] 3.9 mmol/L Normal 3.5-5.3 [facility] Comment on above: Performed By: #### 2 4362-6 ####JOLENE Cantu (32012)[facility] ([facility])[address] [place] [address] Sodium [Moles/Vol] 138 mmol/L Normal 136-145 [facility] Comment on above: Performed By: #### 2 4362-6 ####JOLENE Cantu (05714)[facility] ([facility])[address] [place] [address] Urea nitrogen [Mass/Vol] 14 mg/dL Normal 6-23 [facility] Comment on above: Performed By: #### 2 4362-6 ####JOLENE Cantu ([id number])[facility] ([facility])[address] [place] [address] Bacteria identifiedon 2023 Bacteria identified Cx Nom (Bld) [facility] Comment on above: Performed By: #### 6 00-7 ####JOLENE Cantu ([id number])[facility] ([facility])[address] [place] [address] 46285 Blood type and Indirect anti body screen panel (Bld)on 10-31-2023 ABO group Nom (Bld) [facility] Comment on above: Performed By: #### 3 4532-2 ####JOLENE Cantu (62025)[facility] ([facility])[address] [place] [address] 28436 Blood group antibody screen Ql Negative [facility] Comment on above: Performed By: #### 3 4532-2 ####JOLENE Cantu (96773)[facility] ([facility])[address] [place] [address] 61702 D Ag Ql (Bld) Positive [facility] Comment on above: Performed By: #### 3 4532-2 ####JOLENE Cantu ([id number])[facility] ([facility])[address] [place] [address] 31530 CBC W Auto Differential pane l (Bld)on 10-31-2023 Basophils (Bld) [#/Vol] 0.01 x10*3/uL Normal 0.00-0.10 [facility] Comment on above: Performed By: #### 5 7021-8 ####JOLENE Cantu ([id number])[facility] ([facility])[address] [place] [address] Basophils/100 WBC (Bld) 0.2 % Normal 0.0-2.0 [facility] Comment on above: Performed By: #### 5 7021-8 ####JOLENE Cantu (26301)[facility] ([facility])[address] [place] [address] Eosinophils (Bld) [#/Vol] 0.20 x10*3/uL Normal 0.00-0.70 [facility] Comment on above: Performed By: #### 5 7021-8 ####JOLENE Cantu ([id number])[facility] ([facility])[address] [place] [address] 995[address] Eosinophils/100 WBC (Bld) 3.3 % Normal 0.0-6.0 [facility] Comment on above: Performed By: #### 5 7021-8 ####JOLENE Cantu (87171)[facility] ([facility])[address] [place] [address] 74945 Erythrocyte distribution width (RBC) [Ratio] 13.1 % Normal 11.5-14.5 [facility] Comment on above: Performed By: #### 5 7021-8 ####JOLENE Cantu (65117)[facility] ([facility])[address] [place] [address] 27292 Hematocrit (Bld) [Volume fraction] 37.2 % Normal 36.0-46.0 [facility] Comment on above: Performed By: #### 5 7021-8 ####JOLENE Cantu ([id number])[facility] ([facility])[address] [place] [address] 86009 Hemoglobin (Bld) [Mass/Vol] 12.6 g/dL Normal 12.0-16.0 [facility] Comment on above: Performed By: #### 5 7021-8 ####JOLENE Cantu (82820)[facility] ([facility])[address] [place] [address] 85454 Immature granulocytes (Bld) [#/Vol] 0.01 x10*3/uL Normal 0.00-0.70 [facility] Comment on above: Performed By: #### 5 7021-8 ####JOLENE Cantu ([id number])[facility] ([facility])[address] [place] [address] Immature granulocytes/100 WBC (Bld) 0.2 % Normal 0.0-0.9 [facility] Comment on above: Result Comment: Aspen ture Granulocyte Count (IG) includes promyelocytes, myelocytes and metamyelocytes but does not include bands. Percent differential counts (%) should be interpreted in the context of the absolute cell counts (cells/UL). Performed By: #### 5 7021-8 ####JOLENE Cantu ([id number])[facility] ([facility])[address] [place] [address] Lymphocytes (Bld) [#/Vol] 1.51 x10*3/uL Normal 1.20-4.80 [facility] Comment on above: Performed By: #### 5 7021-8 ####JOLENE Cantu ([id number])[facility] ([facility])[address] [place] [address] Lymphocytes/100 WBC (Bld) 24.6 % Normal 13.0-44.0 [facility] Comment on above: Performed By: #### 5 7021-8 ####JOLENE Cantu ([id number])[facility] ([facility])[address] [place] [address] MCH (RBC) [Entitic mass] 30.3 pg Normal 26.0-34.0 [facility] Comment on above: Performed By: #### 5 7021-8 ####JOLENE Cantu ([id number])[facility] ([facility])[address] [place] [address] MCHC (RBC) [Mass/Vol] 33.9 g/dL Normal 32.0-36.0 [facility] Comment on above: Performed By: #### 5 7021-8 ####JOLENE Cantu ([id number])[facility] ([facility])[address] [place] [address] MCV (RBC) [Entitic vol] 89 fL Normal 80-100 [facility] Comment on above: Performed By: #### 5 7021-8 ####JOLENE Cantu ([id number])[facility] ([facility])[address] [place] [address] Monocytes (Bld) [#/Vol] 0.45 x10*3/uL Normal 0.10-1.00 [facility] Comment on above: Performed By: #### 5 7021-8 ####JOLENE Cantu ([id number])[facility] ([facility])[address] [place] [address] Monocytes/100 WBC (Bld) 7.3 % Normal 2.0-10.0 [facility] Comment on above: Performed By: #### 5 7021-8 ####JOLENE Cantu ([id number])[facility] ([facility])[address] [place] [address] Neutrophils (Bld) [#/Vol] 3.95 x10*3/uL Normal 1.20-7.70 [facility] Comment on above: Result Comment: Perc ent differential counts (%) should be interpreted in the context of the absolute cell counts (cells/uL). Performed By: #### 5 7021-8 ####JOLENE Cantu ([id number])[facility] ([facility])[address] [place] [address] Neutrophils/100 WBC (Bld) 64.4 % Normal 40.0-80.0 [facility] Comment on above: Performed By: #### 5 7021-8 ####JOLENE Cantu ([id number])[facility] ([facility])[address] [place] [address] Nucleated RBC/100 WBC (Bld) [Ratio] 0.0 /100 WBCs Normal 0.0-0.0 [facility] Comment on above: Performed By: #### 5 7021-8 ####JOLENE Cantu ([id number])[facility] ([facility])[address] [place] [address] Platelets (Bld) [#/Vol] 304 x10*3/uL Normal 150-450 [facility] Comment on above: Performed By: #### 5 7021-8 ####JOLENE Cantu ([id number])[facility] ([facility])[address] [place] [address] RBC (Bld) [#/Vol] 4.16 x10*6/uL Normal 4.00-5.20 [facility] Comment on above: Performed By: #### 5 7021-8 ####JOLENE Cantu ([id number])[facility] ([facility])[address] [place] [address] WBC (Bld) [#/Vol] 6.1 x10*3/uL Normal 4.4-11.3 [facility] Comment on above: Performed By: #### 5 7021-8 ####JOLENE Cantu ([id number])[facility] ([facility])[address] [place] [address] Choriogonadotropin.beta subu niton 10-31-2023 HCG.beta subunit Qn m[IU]/mL Normal <5 [facility] Comment on above: Order Comment: Total HCG measurement is performed using the Siemens Atellica immunoassay which detects intact HCG and free beta HCG subunit. This test is not indicated for use as a tumor marker. HCG testing is performed using a different test methodology at [facility] than other [facility]. Direct result comparison should only be made within the same method. Performed By: #### 2 1198-7 ####JOLENE Cantu ([id number])[facility] ([facility])[address] [place] [address] Comprehensive metabolic 2000 panelon 10-31-2023 Albumin BCP dye [Mass/Vol] 3.6 g/dL Normal 3.4-5.0 [facility] Comment on above: Performed By: #### 2 4323-8 ####JOLENE Cantu ([id number])[facility] ([facility])[address] [place] [address] ALP [Catalytic activity/Vol] 75 U/L Normal 33-110 [facility] Comment on above: Performed By: #### 2 4323-8 ####JOLENE Cantu ([id number])[facility] ([facility])[address] [place] [address] ALT With P-5'-P [Catalytic activity/Vol] 28 U/L Normal 7-45 [facility] Comment on above: Result Comment: Katia ents treated with Sulfasalazine may generate falsely decreased results for ALT. Performed By: #### 2 4323-8 ####JOLENE Cantu ([id number])[facility] ([facility])[address] [place] [address] Anion gap [Moles/Vol] 13 mmol/L Normal 10-20 [facility] Comment on above: Performed By: #### 2 4323-8 ####JOLENE Cantu ([id number])[facility] ([facility])[address] [place] [address] AST With P-5'-P [Catalytic activity/Vol] 34 U/L Normal 9-39 [facility] Comment on above: Performed By: #### 2 4323-8 ####JOLENE Cantu ([id number])[facility] ([facility])[address] [place] [address] Bilirubin [Mass/Vol] 0.5 mg/dL Normal 0.0-1.2 [facility] Comment on above: Performed By: #### 2 4323-8 ####JOLENE Cantu ([id number])[facility] ([facility])[address] [place] [address] Calcium [Mass/Vol] 8.2 mg/dL Low 8.6-10.6 [facility] Comment on above: Performed By: #### 2 4323-8 ####JOLENE Cantu ([id number])[facility] ([facility])[address] [place] [address] Chloride [Moles/Vol] 106 mmol/L Normal 98-107 [facility] Comment on above: Performed By: #### 2 4323-8 ####JOLENE Cantu ([id number])[facility] ([facility])[address] [place] [address] CO2 [Moles/Vol] 24 mmol/L Normal 21-32 [facility] Comment on above: Performed By: #### 2 4323-8 ####JOLENE RONQUILLO L ([id number])[facility] ([facility])[address] [place] [address] Creatinine [Mass/Vol] 0.74 mg/dL Normal 0.50-1.05 [facility] Comment on above: Performed By: #### 2 4323-8 ####JOLENE Cantu ([id number])[facility] ([facility])[address] [place] [address] GFR/1.73 sq M.predicted MDRD (S/P/Bld) [Vol rate/Area] mL/min/{1.73_m2} Normal >60 [facility] Comment on above: Result Comment: Calc ulations of estimated GFR are performed using the 2020 CKD-EPI Study Refit equation without the race variable for the IDMS-Traceable creatinine methods.https://jasn.asnjournals.org/content//A SN.3726993937 Performed By: #### 2 4323-8 ####JOLENE Cantu ([id number])[facility] ([facility])[address] [place] [address] Glucose [Mass/Vol] 90 mg/dL Normal 74-99 [facility] Comment on above: Performed By: #### 2 4323-8 ####JOLENE RONQUILLO L ([id number])[facility] ([facility])[address] [place] [address] Potassium [Moles/Vol] 4.0 mmol/L Normal 3.5-5.3 [facility] Comment on above: Performed By: #### 2 4323-8 ####JOLENE Cantu (59531)[facility] ([facility])[address] [place] [address] Protein [Mass/Vol] 6.6 g/dL Normal 6.4-8.2 [facility] Comment on above: Performed By: #### 2 4323-8 ####JOLENE Cantu ([id number])[facility] ([facility])[address] [place] [address] Sodium [Moles/Vol] 139 mmol/L Normal 136-145 [facility] Comment on above: Performed By: #### 2 4323-8 ####JOLENE Cantu (60813)[facility] ([facility])[address] [place] [address] Urea nitrogen [Mass/Vol] 13 mg/dL Normal 6-23 [facility] Comment on above: Performed By: #### 2 4323-8 ####JOLENE Cantu ([id number])[facility] ([facility])[address] [place] [address] MR LUMBAR SPINE W AND WO IV CONTRASTon 10-31-2023 MR LUMBAR SPINE W AND WO IV CONTRAST Normal [facility] Urinalysis complete W Reflex Culture panel (U)on 10-31-2023 Appearance (U) Turbid Normal Clear [facility] Comment on above: Performed By: #### 5 8077-9 ####JOLENE Cantu ([id number])[facility] ([facility])[address] [place] [address] Bilirubin (U) [Mass/Vol] Negative Normal NEGATIVE [facility] Comment on above: Performed By: #### 5 8077-9 ####JOLENE Cantu ([id number])[facility] ([facility])[address] [place] [address] Color (U) Yellow Normal Light-Yellow , Yellow, Dark-Yellow [facility] Comment on above: Performed By: #### 5 8077-9 ####JOLENE Cantu ([id number])[facility] ([facility])[address] [place] [address] Epithelial cells.squamous Auto (Urine sed) [#/Area] 26-50 (1+) Normal Reference range not established. [facility] Comment on above: Performed By: #### 5 8077-9 ####JOLENE CASTROER L (85399)[facility] ([facility])[address] [place] [address] Glucose Auto test strip (U) [Mass/Vol] Normal Normal Normal [facility] Comment on above: Performed By: #### 5 8077-9 ####JOLENE WELSHMOTZER L (48144)[facility] ([facility])[address] [place] [address] Ketones (U) [Mass/Vol] Negative Normal NEGATIVE [facility] Comment on above: Performed By: #### 5 8077-9 ####JOLENE RONQUILLO L (04029)[facility] ([facility])[address] [place] [address] Leukocyte esterase Auto test strip Ql (U) Negative Normal NEGATIVE [facility] Comment on above: Performed By: #### 5 8077-9 ####JOLENE WELSHMOALEXUSER L (07993)[facility] ([facility])[address] [place] [address] Mucus Auto (Urine sed) [#/Area] 3+ /LPF Normal Reference range not established. [facility] Comment on above: Performed By: #### 5 8077-9 ####JOLENE WELSHMOTZER L (74144)[facility] ([facility])[address]188 [place] [address] Nitrite Auto test strip Ql (U) Negative Normal NEGATIVE [facility] Comment on above: Performed By: #### 5 8077-9 ####JOLENE WELSHMOTZER L (77549)[facility] ([facility])[address] [place] [address] pH (U) 6.0 [pH] Normal 5.0, 5.5, 6.0, 6.5, 7.0, 7.5, 8.0 [facility] Comment on above: Performed By: #### 5 8077-9 ####JOLENE RONQUILLO L (63539)[facility] ([facility])[address] [place] [address] Protein (U) [Mass/Vol] 30 (1+) Abnormal NEGAT ALEXANDRE, 10 (TRACE), 20 (TRACE) [facility] Comment on above: Performed By: #### 5 8077-9 ####JOLENE RONQUILLO L ([id number])[facility] ([facility])[address] [place] [address] RBC (U) [#/Vol] Negative Normal NEGATIVE [facility] Comment on above: Performed By: #### 5 8077-9 ####JOLENE RONQUILLO L (53600)[facility] ([facility])[address] [place] [address] RBC Auto (Urine sed) [#/Area] 1-2 Normal NONE, 1-2, 3-5 [facility] Comment on above: Performed By: #### 5 8077-9 ####JOLENE RONQUILLO L ([id number])[facility] ([facility])[address] [place] [address] Specific gravity (U) [Rel density] 1.033 Normal 1.005-1.035 [facility] Comment on above: Performed By: #### 5 8077-9 ####JOLENE RONQUILLO L (85845)[facility] ([facility])[address] [place] [address] Urobilinogen (U) [Mass/Vol] Normal Normal Normal [facility] Comment on above: Performed By: #### 5 8077-9 ####JOLENE WELSHMOALEXUSER L ([id number])[facility] ([facility])[address] [place] [address] WBC Auto (Urine sed) [#/Area] 1-5 Normal 1-5, NONE [facility] Comment on above: Performed By: #### 5 8077-9 ####JOLENE WELSHMOTZER L ([id number])[facility] ([facility])[address] [place] [address] XR ABDOMEN (KUB) (SINGLE AP VIEW)on 10-31-2023 XR ABDOMEN (KUB) (SINGLE AP VIEW) EXAMINATION: ONE SUPINE XRAY VIEW(S) OF THE ABDOMEN 10/30/2023 7:26 pm COMPARISON: CT abdomen January 30, 2014 HISTORY: ORDERING SYSTEM PROVIDED HISTORY: rule out FB in lumbar spine from spinal stimulator prior to STRUCTURAL FITTER PROVIDED HISTORY: rule out FB in lumbar [...] Liyah Miranda MD 10/31/23 Final result Normal [facility] XR ABDOMEN 1 VIEWon 10-31-19 XR ABDOMEN 1 VIEW Normal [facility] XR Abdomen Single viewon Cholecystectomy clip s as well as tubal ligation clips in the pelvis. No other foreign body. PN RIS CONSOLIDATED EXAMINATION: ONE SUPINE XRAY VIEW(S) OF THE ABDOMEN 10/30/2023 7:26 pm COMPARISON: CT abdomen January 30, 2014 HISTORY: ORDERING SYSTEM PROVIDED HISTORY: rule out FB in lumbar spine from spinal stimulator prior to STRUCTURAL FITTER PROVIDED HISTORY: rule out FB in lumbar [...] gas pattern. No evidence of free air. [facility] RIS CONSOLIDATED Liyah Miranda MD - 10/31/2023 EXAMINATION: ONE SUPINE XRAY VIEW(S) OF THE ABDOMEN 10/30/2023 7:26 pm COMPARISON: CT abdomen January 30, 2014 HISTORY: ORDERING SYSTEM PROVIDED HISTORY: rule out FB in lumbar spine from spinal stimulator prior to STRUCTURAL FITTER PROVIDED HISTORY: rule out FB in lumbar [...] in the pelvis. No other foreign body. [employer] XR Abdomen Single viewOrdere d By: Liyah Miranda on 10-31-2023 [employer] Work Phone: XR CHEST 1 VIEWon 10-31-2023 XR CHEST 1 VIEW Normal [facility] XR PELVIS 1-2 VIEWSon 2023 XR PELVIS 1-2 VIEWS Normal [facility] Basic Metabolic Panelon Anion gap [Moles/Vol] 10 mmol/L 9 - 17 mmol/L [employer] [facility] Calcium [Mass/Vol] 8.7 mg/dL 8.6 - 10. 4 mg/dL [facility] Chloride [Moles/Vol] 103 mmol/L 98 - 10 7 mmol/L [facility] CO2 [Moles/Vol] 25 mmol/L 20 - 31 mmol/L [facility] Creatinine [Mass/Vol] 0.7 mg/dL 0.5 - 0.9 mg/dL [facility] [employer], Glom Filt Rate - PINF [facility] S [facility] [employer] Comment on above: These results are not [...] [Mass/Vol] 96 mg/dL 70 - 99 mg/dL [employer] Potassium [Moles/Vol] 4.1 mmol/L 3.7 - 5.3 mmol/L [employer] [facility] Sodium [Moles/Vol] 138 mmol/L 135 - 144 mmol/L [facility] Urea nitrogen [Mass/Vol] 13 mg/dL 6 - 20 mg/dL [facility] Basic Metabolic Profon 10-29 Anion gap [Moles/Vol] 10 mmol/L Normal 9-17 [facility] Comment on above: Performed By: #### B MP, CDP, CRP #### [facility] [address] [place] [address] Filling Machine Tender: Keke Romero DO #### SED #### [address] [address] Filling Machine Tender: Jose Enrique Oneal MD Calcium [Mass/Vol] 8.7 mg/dL Normal 8.6-10.4 [facility] Comment on above: Performed By: #### B MP, CDP, CRP #### [facility] [address] [place] [address] Filling Machine Tender: Keke Romero DO #### SED #### [address] [address] Filling Machine Tender: Jose Enrique Oneal MD Chloride [Moles/Vol] 103 mmol/L Normal 98-107 [facility] Comment on above: Performed By: #### B MP, CDP, CRP #### [facility] [address] [place] [address] Filling Machine Tender: Keke Romero DO #### SED #### [address] [address] Filling Machine Tender: Jose Enrique Oneal MD CO2 [Moles/Vol] 25 mmol/L Normal 20-31 [facility] Comment on above: Performed By: #### B MP, CDP, CRP #### [facility] [address] [place] [address] Filling Machine Tender: Keke Romero DO #### SED #### [address] [place] [address] Filling Machine Tender: Jose Enrique Oneal MD Creatinine [Mass/Vol] 0.7 mg/dL Normal 0.5-0.9 [facility] Comment on above: Performed By: #### B AKIL PARKINSON, CRP #### [facility] [address] [place] [address] Filling Machine Tender: Keke Romero DO #### SED #### [address] [address] Filling Machine Tender: Jose Enrique Oneal MD GFR/1.73 sq M.predicted among non-blacks MDRD (S/P/Bld) [Vol rate/Area] mL/min/{1.73_m2} Normal >60 [facility] Comment on above: Result Comment: These results [...] tubular secretion. Performed By: #### B AKIL PRAKINSON, CRP #### [facility] [address] [place] [address] Filling Machine Tender: Keke Romero DO #### SED #### [address] [address] Filling Machine Tender: Jose Enrique Oneal MD Glucose [Mass/Vol] 96 mg/dL Normal 70-99 [facility] Comment on above: Performed By: #### B IGGY, AKIL, CRP #### [facility] [address] [place] [address] Filling Machine Tender: Keke Romero DO #### SED #### [address] [address] Filling Machine Tender: Jose Enrique Oneal MD Potassium [Moles/Vol] 4.1 mmol/L Normal 3.7-5.3 [facility] Comment on above: Performed By: #### B MP, CDP, CRP #### [facility] [address] [place] [address] Filling Machine Tender: Keke Romero DO #### SED #### [address] [address] Filling Machine Tender: Jose Enrique Oneal MD Sodium [Moles/Vol] 138 mmol/L Normal 135-144 [facility] Comment on above: Performed By: #### B MP, CDP, CRP #### [facility] [address] [place] [address] Filling Machine Tender: Keke Romero DO #### SED #### [address] [address] Filling Machine Tender: Jose Enrique Oneal MD Urea nitrogen [Mass/Vol] 13 mg/dL Normal 6-20 [facility] Comment on above: Performed By: #### B MP, CDP, CRP #### [facility] [place] [address] Filling Machine Tender: Keke Romero DO #### SED #### [address] [address] Filling Machine Tender: Jose Enrique Oneal MD C-Reactive Proteinon 024 CRP High sensitivity method [Mass/Vol] 3.6 mg/L 0.0 - 5.0 mg/L [facility] CRP [Mass/Vol] 3.6 mg/L Normal 0.0-5.0 [facility] Comment on above: Performed By: #### B MP, CDP, CRP #### [facility] [address] [place] [address] Filling Machine Tender: Keke Romero DO #### SED #### [facility] [address] [id number] Filling Machine Tender: Jose Enrique Oneal MD CBC with Auto Differentialon 10-30-2023 Basophils (Bld) [#/Vol] 0.00 10*3/uL [facility] Basophils/100 WBC (Bld) 0 % 0 - 2 % [facility] Eosinophils (Bld) [#/Vol] 0.10 10*3/uL [facility] Eosinophils/100 WBC (Bld) 2 % 0 - 4 % [facility] Erythrocyte distribution width (RBC) [Ratio] 14.2 % 11.5 - 14.9 % [facility] Hematocrit (Bld) [Volume fraction] 42.0 % 36 - 46 % [facility] Hemoglobin (Bld) [Mass/Vol] 13.8 g/dL 12.0 - 16.0 g/dL [facility] Lymphocytes/100 WBC (Bld) 25 % 24 - 44 % [facility] Lymphocytes/100 WBC (Bld) 2.50 % [facility] MCH (RBC) [Entitic mass] 31.3 pg 26 - [address] [facility] MCHC (RBC) [Mass/Vol] 33.0 g/dL 31 - 37 g/dL [facility] MCV (RBC) [Entitic vol] 95.0 fL 80 - 100 fL [facility] Monocytes/100 WBC (Bld) 7 % 1 - 7 % [facility] Monocytes/100 WBC (Bld) 0.70 % [facility] Neutrophils/100 WBC (Bld) 66 % 36 - 66 % [facility] Platelet mean volume (Bld) [Entitic vol] 8.1 fL 6.0 - 12.0 fL [facility] Platelets (Bld) [#/Vol] 347 10*3/uL [facility] RBC (Bld) [#/Vol] 4.42 10*6/uL 4.0 - 5.2 m/uL [facility] Segmented neutrophils/100 WBC (Bld) 6.60 % [facility] WBC other (Bld) [#/Vol] 9.9 [facility] CBC with Diffon 10-30-2023 Abs. Basophil 0.00 k/uL Normal 0.0-0.2 [facility] Comment on above: Performed By: #### B MP, CDP, CRP #### [facility] [address] [place] [address] Filling Machine Tender: Keke Romero DO #### SED #### [address] [address] Filling Machine Tender: Jose Enrique Oneal MD Abs.Neutrophil (Seg) 6.60 k/uL Normal 1.3-9.1 [facility] Comment on above: Performed By: #### B MP, CDP, CRP #### [facility] [address] [place] [address] Filling Machine Tender: Keke Romero DO #### SED #### [address] [address] Filling Machine Tender: Jose Enrique Oneal MD Basophils/100 WBC (Bld) 0 % Normal 0-2 [facility] Comment on above: Performed By: #### B MP, CDP, CRP #### [facility] [address] [place] [address] Filling Machine Tender: Keke Romero DO #### SED #### [address] [address] Filling Machine Tender: Jose Enrique Oneal MD Eosinophils (Bld) [#/Vol] 0.10 10*3/uL Normal 0.0-0.4 [facility] Comment on above: Performed By: #### B MP, CDP, CRP #### [facility] [address] [place] [address] Filling Machine Tender: Keke Romero DO #### SED #### [address] [address] Filling Machine Tender: Jose Enrique Oneal MD Eosinophils/100 WBC (Bld) 2 % Normal 0-4 [facility] Comment on above: Performed By: #### B MP, CDP, CRP #### [facility] [address] [place] [address] Filling Machine Tender: Keke Romero DO #### SED #### [address] [address] Filling Machine Tender: Jose Enrique Oneal MD Erythrocyte distribution width (RBC) [Ratio] 14.2 % Normal 11.5-14.9 [facility] Comment on above: Performed By: #### B MP, CDP, CRP #### [facility] [address] [place] [address] Filling Machine Tender: Keke Romero DO #### SED #### [address] [address] Filling Machine Tender: Jose Enrique Oneal MD Hematocrit (Bld) [Volume fraction] 42.0 % Normal 36-46 [facility] Comment on above: Performed By: #### B MP, CDP, CRP #### [facility] [address] [place] [address] Filling Machine Tender: Keke Romero DO #### SED #### [address] [address] Filling Machine Tender: Jose Enrique Oneal MD Hemoglobin (Bld) [Mass/Vol] 13.8 g/dL Normal 12.0-16.0 [facility] Comment on above: Performed By: #### B MP, CDP, CRP #### [facility] [address] [place] [address] Filling Machine Tender: Keke Romero DO #### SED #### [address] [address] Filling Machine Tender: Jose Enrique Oneal MD Lymphocytes (Bld) [#/Vol] 2.50 10*3/uL Normal 1.0-4.8 [facility] Comment on above: Performed By: #### B MP, CDP, CRP #### [facility] [address] [place] [address] Filling Machine Tender: Keke Romero DO #### SED #### [address] [address] Filling Machine Tender: Jose Enrique Oneal MD Lymphocytes/100 WBC (Bld) 25 % Normal 24-44 [facility] Comment on above: Performed By: #### B MP, CDP, CRP #### [facility] [address] [place] [address] Filling Machine Tender: Keke Romero DO #### SED #### [address] [address] Filling Machine Tender: Jose Enrique Oneal MD MCH (RBC) [Entitic mass] 31.3 pg Normal 26-34 [facility] Comment on above: Performed By: #### B MP, CDP, CRP #### [facility] [address] [place] [address] Filling Machine Tender: Keke Romero DO #### SED #### [address] [address] Filling Machine Tender: Jose Enrique Oneal MD MCHC (RBC) [Mass/Vol] 33.0 g/dL Normal 31-37 [facility] Comment on above: Performed By: #### B MP, CDP, CRP #### [facility] [address] [place] [address] Filling Machine Tender: Keke Romero DO #### SED #### [address] [address] Filling Machine Tender: Jose Enrique Oneal MD MCV (RBC) [Entitic vol] 95.0 fL Normal 80-100 [facility] [facility] Comment on above: Performed By: #### B MP, CDP, CRP #### [facility] [place] [address] Filling Machine Tender: Keke Romero DO #### SED #### [address] [address] Filling Machine Tender: Jose Enrqiue Oneal MD Monocytes (Bld) [#/Vol] 0.70 10*3/uL Normal 0.1-1.3 [facility] Comment on above: Performed By: #### B MP, CDP, CRP #### [facility] [address] [place] [address] Filling Machine Tender: Keke Romero DO #### SED #### [address] [address] Filling Machine Tender: Jose Enrique Oneal MD Monocytes/100 WBC (Bld) 7 % Normal 1-7 [facility] Comment on above: Performed By: #### B MP, CDP, CRP #### [facility] [address] [place] [address] Filling Machine Tender: Keke Romero DO #### SED #### [address] [address] Filling Machine Tender: Jose Enrique Oneal MD Neutrophil (Seg) 66 % Normal 36-66 [facility] Comment on above: Performed By: #### B MP, CDP, CRP #### [facility] [address] [place] [address] Filling Machine Tender: Keke Romero DO #### SED #### [address] [address] Filling Machine Tender: Jose Enrique Oneal MD Platelet mean volume (Bld) [Entitic vol] 8.1 fL Normal 6.0-12.0 [facility] Comment on above: Performed By: #### B MP, CDP, CRP #### [facility] [address] [place] [address] Filling Machine Tender: Keke Romero DO #### SED #### [address] [address] Filling Machine Tender: Jose Enrique Oneal MD Platelets (Bld) [#/Vol] 347 10*3/uL Normal 150-450 [facility] Comment on above: Performed By: #### B MP, CDP, CRP #### [facility] [place] [address] Filling Machine Tender: Keke Romero DO #### SED #### [address] [address] Filling Machine Tender: Jose Enrique Oneal MD RBC (Bld) [#/Vol] 4.42 10*6/uL Normal 4.0-5.2 [facility] Comment on above: Performed By: #### B MP, CDP, CRP #### [facility] [place] [address] Filling Machine Tender: Keke Romero DO #### SED #### [address] [address] Filling Machine Tender: Jose Enrique Oneal MD WBC (Bld) [#/Vol] 9.9 10*3/uL Normal 3.5-11.0 [facility] Comment on above: Performed By: #### B MP, CDP, CRP #### [facility] [place] [address] Filling Machine Tender: Keke Romero DO #### SED #### [facility] [address] [place], [place] [id number] Filling Machine Tender: Jose Enrique Oneal MD ED Clinical Summaryon 2023 ED Clinical Summary Normal [facility] ED Note-Physicianon 10-30-19 ED Note-Physician Normal [facility] Comment on above: Result Comment: Elec tronically Signed By: Balbina Bryant M.D.\.br\Date and Time Signed: 10/30/23 15:29 EDT ED Patient Education Noteon 10-30-2023 ED Patient Education Note Normal [facility] ED Patient Summaryon ED Patient Summary Normal [facility] No Panel Informationon 10-29 [facility] Sedimentation Rateon ESR Photometric method (Bld) [Velocity] 32 High [facility] Interpretation and review of laboratory results Abnormal [facility] Sedimentation Rate 32 mm/Hr High 0-20 [facility] Comment on above: Performed By: #### B MP, CDP, CRP #### [facility] [address] [place], [place] [id number] Filling Machine Tender: Keke Romero DO #### SED #### [facility] [address] [place], [place] [id number] Filling Machine Tender: Jose Enrique Oneal MD XR Abdomen Single viewon Radiology Study observation (narrative) [facility] ED Clinical Summaryon 2023 ED Clinical Summary Normal [facility] ED Note-Physicianon 10-26-19 ED Note-Physician Normal [facility] Comment on above: Result Comment: Elec tronically Signed By: Pedro Pablo Fletcher DO SAdrien\.br\Date and Time Signed: 10/26/23 03:05 EDT ED Patient Education Noteon 10-26-2023 ED Patient Education Note Normal [facility] ED Patient Summaryon 08-03-2 024 ED Patient Summary Normal [facility] Alanine aminotransferase [En zymatic activity/volume] in Serum or PlasmaOrdered By: Peter Veliz on 10-19-2023 ALT [Catalytic activity/Vol] 41 U/L Normal 7-52 [facility] Comment on above: Performed By: #### C DEYVI PARKINSON, CBC #### [facility] [address] [place] [address] [place] Albumin [Mass/volume] in Ser um or [...] By: #### C DEYVI PARKINSON, CBC #### [address] Aspartate aminotransferase [ Enzymatic activity/volume] in Serum or PlasmaOrdered By: Peter Veliz on 10-19-2023 AST [Catalytic activity/Vol] 22 U/L Normal 13-39 [facility] Comment on above: Performed By: #### C DEYVI PARKINSON, CBC #### [address] Automated basophil %Ordered By: Peter Veliz on 10-19-2023 Basophils/100 WBC (Bld) 0.3 % Normal . [facility] Comment on above: Performed By: #### C DEYVI PARKINSON, CBC #### [address] Automated basophil countOrde red By: Peter Veliz on 10-19-2023 Basophils (Bld) [#/Vol] 0.0 10*3/uL Normal 0.0-0.2 [facility] Comment on above: Result Comment: PERF ORMED BY: [place] [address] PATHOLOGIST P[employer]OW[employer] CUTTER JASON WILSON M.D. Performed By: #### C DEYVI PARKINSON, CBC #### [address] Automated blood monocyte cou ntOrdered By: Peter Veliz on 10-19-2023 Monocytes (Bld) [#/Vol] 0.8 10*3/uL Normal 0.0-0.8 [facility] Comment on above: Performed By: #### C DEYVI PARKINSON, CBC #### [address] Automated eosinophil %Ordere d By: Peter Veliz on 10-19-2023 Eosinophils/100 WBC (Bld) 1.9 % Normal . [facility] Comment on above: Performed By: #### C DEYVI PARKINSON, CBC #### [address] Automated eosinophil countOr dered By: Peter Veliz on 10-19-2023 Eosinophils (Bld) [#/Vol] 0.2 10*3/uL Normal 0.0-0.45 [facility] Comment on above: Performed By: #### C DEYVI PARKINSON, CBC #### [address] Automated monocyte %Ordered By: Peter Veliz on 10-19-2023 Monocytes/100 WBC (Bld) 6.8 % Normal . [facility] Comment on above: Performed By: #### C DEYVI PARKINSON, CBC #### [address] Automated neutrophil %Ordere d By: Peter Veliz on 10-19-2023 Neutrophils/100 WBC (Bld) 72.3 % Normal . [facility] Comment on above: Performed By: #### C DEYVI PARKINSON, CBC #### [address] Bacteria [Presence] in Urine by AutomatedOrdered By: Peter Veliz on 10-19-2023 Bacteria Auto Ql (U) None seen [HPF] None Seen [facility] Bacterial blood cultureOrder ed By: Peter Veliz on 10-19-2023 Bacteria identified Cx Nom (Bld) NO GROWTH 5 DAYS [facility] Bacteria identified Cx Nom (Bld) NO GROWTH 5 DAYS [facility] Bilirubin Test strip Ql (U)O rdered By: Peter Veliz on 10-19-2023 Bilirubin Ql (U) Negative Negative [facility] Bilirubin.total [Mass/volume ] in Serum or PlasmaOrdered By: Peter Veliz on 10-19-2023 Bilirubin [Mass/Vol] 0.5 mg/dL Normal 0.3-1.0 [facility] Comment on above: Performed By: #### C DEYVI PARKINSON, CBC #### [address] Blood Cultureon 10-19-2023 Bacteria identified Cx Nom (Bld) NO GROWTH 5 DAYS PERFORMED BY: [place] [address] PATHOLOGIST [employer] CUTTER JASON WILSON M.D. Normal [facility] Comment on above: Performed By: #### C DEYVI PARKINSON, CBC #### [address] Bacteria identified Cx Nom (Bld) NO GROWTH 5 DAYS PERFORMED BY: [place] [address] PATHOLOGIST P[employer] CUTTER JASON WILSON M.D. Normal [facility] Comment on above: Performed By: #### C DEYVI PARKINSON, CBC #### [address] COVID CepheidOrdered By: Cedric Veliz on 10-19-2023 [...] or Cepheid Disclaimer revoked sooner. PERFORMED BY: [place] [address] PATHOLOGIST P[employer]OWCASE CUTTER JASON WILSON M.D. Normal [facility] Comment on above: Performed By: #### C DEYVI PARKINSON, KENTRELL #### [facility] [address] Calcium [Mass/volume] in Ser um or PlasmaOrdered By: Peter Veliz on 10-19-2023 Calcium [Mass/Vol] 8.9 mg/dL Normal 8.6-10.3 [facility] Comment on above: Performed By: #### C DEYIV PARKINSON, CBC #### [address] Carbon dioxide, total [Moles /volume] in Serum or PlasmaOrdered By: Peter Veliz on 10-19-2023 CO2 [Moles/Vol] 25.7 mmol/L Normal 21.0-31.[address] [facility] Comment on above: Performed By: #### C DEYVI PARKINSON CBC #### [address] Cepheid COVID PCR Negativeon 10-19-2023 SARS-CoV-2 (COVID-19) RNA LINDSEY+probe Ql (Unsp spec) Negative Normal Negative [facility] Comment on above: Result Comment: This is a duplicate Cepheid Xpert Xpress CoV-2/Flu/RSV Plus RNA by RT-PCR result to be used for statistical tracking purpose only. PERFORMED BY: [place] [address] PATHOLOGIST P[employer]OWCASE CUTTER JASON WILSON M.D. Performed By: #### C DEYVI PARKINSON CBC #### [address] Chloride [Moles/volume] in S saw or PlasmaOrdered By: Peter Veliz on 10-19-2023 Chloride [Moles/Vol] 107 mmol/L Normal 98-107 [facility] Comment on above: Performed By: #### C DEYVI PARKINSON, CBC #### [address] Color of Urine by AutoOrdere d By: Peter Veliz on 10-19-2023 Color (U) Yellow Normal Yellow [facility] Comment on above: Order Comment: Name Collection Type:: Clean-Voided Midstream Performed By: #### C DEYVI PARKINSON, CBC #### [address] Complete Blood Count Auto Di ffon 10-19-2023 Mean Corpuscular HGB Conc 34.0 g/dL Normal 32.0-35.0 [facility] Comment on above: Performed By: #### C DEYVI PARKINSON, CBC #### [facility] [address] [place] [address] [place] Monocytes/100 WBC (Bld) 19.02 % Normal 0.00-20.00 [facility] Comment on above: Performed By: #### C DEYVI PARKINSON, CBC #### [facility] [address] [place] [address] [place] NRBC% 0.2 /100{WBC} Normal 0-0.5 [facility] Comment on above: Performed By: #### C DEYVI PARKINSON, CBC #### [address] Comprehensive Metabolic Pane cassie 10-19-2023 Albumin [Mass/Vol] 4.0 g/dL Normal 3.5-5.7 [facility] Comment on above: Performed By: #### C DEYVI PARKINSON, CBC #### [place] [address] [place] Creatinine Clr Calc Pharmacy 115.17 Normal [facility] Comment on above: Result Comment: PERF ORMED BY: [place] [address] PATHOLOGIST PILLOWCASE CUTTER JASON WILSON M.D. Performed By: #### C DEYVI PARKINSON, CBC #### [place] [address] [place] GFR/1.73 sq M.predicted MDRD (S/P/Bld) [Vol rate/Area] mL/min/{1.73_m2} Normal [facility] Comment on above: Performed By: #### C DEYVI PARKINSON, CBC #### [place] [address] [place] Creatinine [Mass/volume] in Serum or PlasmaOrdered By: Peter Veliz on 07-27-2024 Creatinine [Mass/Vol] 0.74 mg/dL Normal 0.60-1.20 [facility] Comment on above: Performed By: #### C MP, CUBLD, CBC #### [facility] [address] [place] [address] [place] Dipstick and Microscopicon 0 10-19-2023 Bacteria,Urine None Seen Normal None Seen [facility] Comment on above: Order Comment: Name Collection Type:: Clean-Voided Midstream Performed By: #### C MP, CUBLD, CBC #### [facility] [address] Bilirubin,Urine Negative Normal Negative [facility] Comment on above: Order Comment: Name Collection Type:: Clean-Voided Midstream Performed By: #### C MP, CUBLD, CBC #### [facility] [address] Glucose Ql (U) Normal Normal Normal [facility] Comment on above: Order Comment: Name Collection Type:: Clean-Voided Midstream Performed By: #### C MP, CUBLD, CBC #### [facility] [address] [place] [address] [place] Granular Casts, Urine 1-2 High None Seen [facility] Comment on above: Order Comment: Name Collection Type:: Clean-Voided Midstream Performed By: #### C MP, CUBLD, CBC #### [facility] [address] [place] [address] [place] Hyaline Casts,Urine 0-8 Normal 0-8 [facility] Comment on above: Order Comment: Name Collection Type:: Clean-Voided Midstream Performed By: #### C MP, CUBLD, CBC #### [facility] [address] [place] [address] [place] Mucus,Urine Rare Normal [facility] Comment on above: Order Comment: Name Collection Type:: Clean-Voided Midstream Result Comment: PERF ORMED BY: [place] [address] PATHOLOGIST PILLOWCASE CUTTER JASON WILSON M.D. Performed By: #### C MP, CUBLD, CBC #### [facility] [address] [place] [address] [place] Nitrite,Urine Negative Normal Negative [facility] Comment on above: Order Comment: Name Collection Type:: Clean-Voided Midstream Performed By: #### C MP, CUBLD, CBC #### [place] [address] [place] Occult Blood,Urine Negative Normal Negative [facility] Comment on above: Order Comment: Name Collection Type:: Clean-Voided Midstream Result Comment: PERF ORMED BY: [place] [address] PATHOLOGIST PILLOWCASE CUTTER JASON WILOSN M.D. Performed By: #### C MP, CUBLD, CBC #### [place] [address] [place] RBC,Urine 1-2 Normal 0-4 [facility] Comment on above: Order Comment: Name Collection Type:: Clean-Voided Midstream Performed By: #### C MP, CUBLD, CBC #### [place] [address] [place] Specificy Jamul,Urine 1.027 Normal 1.001-1.030 [facility] Comment on above: Order Comment: Name Collection Type:: Clean-Voided Midstream Performed By: #### C MP, CUBLD, CBC #### [place] [address] [place] Squamous Epithelial Cell,Urine 3-4 High 0-2 [facility] Comment on above: Order Comment: Name Collection Type:: Clean-Voided Midstream Performed By: #### C MP, CUBLD, CBC #### [place] [address] [place] Urobilinogen,Urine Normal Normal Normal [facility] Comment on above: Order Comment: Name Collection Type:: Clean-Voided Midstream Performed By: #### C MP, CUBLD, CBC #### [place] [address] [place] WBC,Urine 1-2 Normal 0-4 [facility] Comment on above: Order Comment: Name Collection Type:: Clean-Voided Midstream Performed By: #### C DEYVI PARKINSON, CBC #### [address] Epithelial cells.squamous [# /area] in Urine [...] By: #### C DEYVI PARKINSON, CBC #### [address] Erythrocytes [#/area] in Uri ne sediment by Automated countOrdered By: Peter Veliz on 10-19-2023 RBC Auto (Urine sed) [#/Area] 1-2 [HPF] 0-4 [facility] Erythrocytes [#/volume] in B lood by Automated countOrdered By: Peter Veliz on 10-19-2023 RBC (Bld) [#/Vol] 4.47 10*6/uL Normal 3.60-5.[address] [facility] Comment on above: Performed By: #### C DEYVI PARKINSON, CBC #### [address] Glucose [Mass/volume] in Ser um or PlasmaOrdered By: Peter Veliz on 10-19-2023 Glucose [Mass/Vol] 87 mg/dL Normal 70-100 [facility] Comment on above: ADA recommended refe rence rangeRandom Glucose Reference Range is dependent on time and content of last meal. Glucose of more than 200 mg/dL in a nonstressed, ambulatory subject supports the diagnosis of Diabetes Mellitus. Result Comment: [place] om Glucose Reference Range is dependent on time and content of last meal. Glucose of more than 200 mg/dL in a nonstressed, ambulatory subject supports the diagnosis of Diabetes Mellitus. ADA recommended reference range Performed By: #### C DEYVI PARKINSON, CBC #### [facility] [address] [place] [address] [place] Glucose [Mass/volume] in Uri ne by [...] By: #### C DEYVI PARKINSON, CBC #### [facility] [address] [place] [address] Hemoglobin Test strip Ql (U) Ordered By: Peter Veliz on 10-19-2023 Hemoglobin Ql (U) Negative Negative [facility] Hemoglobin [Mass/volume] in BloodOrdered By: Peter Veliz on 10-19-2023 Hemoglobin (Bld) [Mass/Vol] 14.2 g/dL Normal 11.8-15.4 [facility] Comment on above: Performed By: #### C DEYVI PARKINSON, CBC #### [facility] [address] [place] [address] [place] Hyaline casts [#/area] in Ur ine [...] By: #### C DEYVI PARKINSON, CBC #### [facility] [address] [place] [address] [place] Lactate [Moles/volume] in Se rum or PlasmaOrdered By: Peter Veliz on 10-19-2023 Lactate [Moles/Vol] 1.0 mmol/L Normal 0.5-2.[address] [facility] Comment on above: Result Comment: PERF ORMED BY: [place] [address] PATHOLOGIST PILLOWCASE CUTTER JASON WILSON M.D. Performed By: #### C BETTY PARKINSONLD, CBC #### [place] [address] [place] Leukocyte esterase [Presence ] in Urine by Test stripOrdered By: Peter Veliz on 10-19-2023 Leukocyte esterase Test strip Ql (U) Negative Normal Negative [facility] Comment on above: Order Comment: Name Collection Type:: Clean-Voided Midstream Performed By: #### C DEYVI PARKINSON, CBC #### [place] [address] [place] Leukocytes [#/area] in Urine sediment by [...] WBC (Bld) [#/Vol] 11.5 10*3/uL Normal 3.8-11.[address] [facility] Comment on above: Performed By: #### C MPBETTYLD, CBC #### [place] [address] [place] Lymphocytes [#/volume] in Bl ood by Automated countOrdered By: Peter Veliz on 10-19-2023 Lymphocytes (Bld) [#/Vol] 2.2 10*3/uL Normal 1.00-4.8 [facility] Comment on above: Performed By: #### C MP CUBLD, CBC #### [address] Lymphocytes/100 leukocytes i n Blood by Automated countOrdered By: Peter Veliz on 10-19-2023 Lymphocytes/100 WBC (Bld) 18.7 % Normal . [facility] Comment on above: Performed By: #### C DEYVI PARKINSON, CBC #### [address] MCH [Entitic mass] by Automa lisa countOrdered By: Peter Veliz on 10-19-2023 MCH (RBC) [Entitic mass] 31.9 pg Normal 24.7-34.3 [facility] Comment on above: Performed By: #### C DEYVI PARKINSON, CBC #### [address] MCHC Auto (RBC) [Mass/Vol]Or dered By: Peter Veliz on 10-19-2023 MCHC (RBC) [Mass/Vol] 34.0 g/dL 32.0-35.0 [facility] MCV [Entitic volume] by Auto mated countOrdered By: Peter Veliz on 10-19-2023 MCV (RBC) [Entitic vol] 93.6 fL Normal 80-100 [facility] Comment on above: Performed By: #### C DEYVI PARKINSON, CBC #### [address] Monocyte distribution width [Entitic volume] in Blood by AutomatedOrdered By: Peter Veliz on 10-19-2023 Monocyte distribution width Auto (Bld) [Entitic vol] 19.02 % 0.00-20.00 [facility] Mucus [Presence] in Urine by AutomatedOrdered By: Peter Veliz on 10-19-2023 Mucus Auto Ql (U) Rare [LPF] [facility] Neutrophils [#/volume] in Bl ood by Automated countOrdered By: Peter Veliz on 10-19-2023 Neutrophils (Bld) [#/Vol] 8.3 10*3/uL High 1.8-7.7 [facility] Comment on above: Performed By: #### C DEYVI PARKINSON, CBC #### [address] [place] [address] [place] Nitrite Test strip Ql (U)Ord ered By: Peter Veliz on 10-19-2023 Nitrite Ql (U) Negative Negative [facility] No Panel InformationOrdered By: Peter Veliz on 10-19-2023 Blood Gas Critical Value See comment [facility] Comment on above: Critical Value castro d on: 10/19/2023 at 12:39 Blood Gas Sample Site Venous [facility] FiO2 21 % [facility] Venous [...] By: #### C DEYVI PARKINSON, CBC #### [facility] [address] [place] [address] [place] Platelets [#/volume] in Bloo d by Automated countOrdered By: Peter Veliz on 10-19-2023 Platelets (Bld) [#/Vol] 317 10*3/uL Normal 150-450 [facility] Comment on above: Performed By: #### C DEYVI PARKINSON, CBC #### [address] Potassium [Moles/volume] in Serum or PlasmaOrdered By: Peter Veliz on 10-19-2023 Potassium [Moles/Vol] 4.2 mmol/L Normal 3.5-5.1 [facility] Comment on above: Hemolysis is present at a level that could interfere with the result.Contact lab if redraw is required Result Comment: Hemo lysis is present at a level that could interfere with the result. Contact lab if redraw is required Performed By: #### C DEYVI PARKINSON, CBC #### [address] Protein [Mass/volume] in Ser um or PlasmaOrdered By: Peter Veliz on 10-19-2023 Protein [Mass/Vol] 7.4 g/dL Normal 6.4-8.9 [facility] Comment on above: Performed By: #### C DEYVI PARKINSON, CBC #### [address] Protein [Mass/volume] in Uri ne by Test stripOrdered By: Peter Veliz on 10-19-2023 Protein (U) [Mass/Vol] 20 mg/dL High Negative [facility] Comment on above: Order Comment: Name Collection Type:: Clean-Voided Midstream Performed By: #### C DEYVI PARKINSON, CBC #### [address] Serum globulin measurement b y calculation (mass/volume)Ordered By: Peter Veliz on 10-19-2023 Globulin (S) [Mass/Vol] 3.4 g/dL [facility] Comment on above: Performed By: #### C DEYVI PARKINSON, CBC #### [address] Serum or plasma albumin/glob ulin mass ratioOrdered By: Peter Veliz on 10-19-2023 Albumin/Globulin [Mass ratio] 1.2 {ratio} [facility] Comment on above: Performed By: #### C DEYVI PARKINSON, CBC #### [place] [address] [place] Serum or plasma anion gap de terminationOrdered By: Peter Veliz on 10-19-2023 Anion gap [Moles/Vol] 10.5 mmol/L Normal 6.0-15.0 [facility] Comment on above: Performed By: #### C DEYVI PARKINSON CBC #### [address] Sodium [Moles/volume] in Ser um or PlasmaOrdered By: Peter Veliz on 10-19-2023 Sodium [Moles/Vol] 139 mmol/L Normal 136-145 [facility] Comment on above: Performed By: #### C DEYVI PARKINSON, CBC #### [address] Specific gravity Test strip (U) [Rel density]Ordered By: Peter Veliz on 10-19-2023 Specific gravity (U) [Rel density] 1.027 1.001-1.030 [facility] Urea nitrogen [Mass/volume] in Serum or PlasmaOrdered By: Peter Veliz on 10-19-2023 Urea nitrogen [Mass/Vol] 17 mg/dL Normal 7-25 [facility] Comment on above: Performed By: #### C DEYVI PARKINSON CBC #### [address] Urine appearanceOrdered By: Peter Veliz on 10-19-2023 Appearance (U) Clear Normal Clear [facility] Comment on above: Order Comment: Name Collection Type:: Clean-Voided Midstream Performed By: #### C DEYVI PARKINSON, CBC #### [address] Urobilinogen Test strip (U) [Mass/Vol]Ordered By: Peter Veliz on 10-19-2023 Urobilinogen (U) [Mass/Vol] Normal mg/dL Normal [facility] Venous Blood GasOrdered By: Peter Veliz on 10-19-2023 CO2 [Moles/Vol] 24.8 mmol/L Normal 24.0-29.[address] [facility] Comment on above: Performed By: #### V BG #### Point of Care testing , HCO3 (Bld) [Moles/Vol] 23.6 mmol/L Normal 23.0-29.0 [facility] Comment on above: Performed By: #### V BG #### Point of Care testing , Venous Blood Gason Respiratory Critical Normal [facility] Comment on above: Result Comment: Crit ical Value called on: 10/19/2023 at 12:39 PERFORMED BY: [facility] [place] [address] PATHOLOGIST PILLOWCASE CUTTER JASON WILSON M.D. Performed By: #### V BG #### Point of Care testing , VBG Base Excess -0.8 mmol/L Normal -3.0-3.0 [facility] Comment on above: Performed By: #### V BG #### Point of Care testing , VBG Draw Site Venous Normal [facility] Comment on above: Performed By: #### V BG #### Point of Care testing , VBG Frac Inspired O2 21 % Normal [facility] Comment on above: Performed By: #### V BG #### Point of Care testing , VBG O2 Content 6.1 mmol/L Low 6.6-9.7 [facility] Comment on above: Performed By: #### V BG #### Point of Care testing , VBG Oxygen Saturation 70.1 % Low 73.0-76.0 [facility] Comment on above: Performed By: #### V BG #### Point of Care testing , VBG PCO2 38.6 mm[Hg] Normal 38.0-50.0 [facility] Comment on above: Performed By: #### V BG #### Point of Care testing , VBG PH Venous PH 7.41 Normal 7.32-7.43 [facility] Comment on above: Performed By: #### V BG #### Point of Care testing , VBG PO2 34.7 mm[Hg] Low 35.0-45.0 [facility] Comment on above: Performed By: #### V BG #### Point of Care testing , XR chest 1V portableon 10-18 XR chest 1V portable [facility] Main [place] [address] [place] [address] XRay Report Signed Patient: Jerad Tracy MR#: [id number] 49 : 1975 Acct:[id number] Age/Sex: 48 / F ADM Date: 10/19/23 Loc: ER Room: Type: [facility] ER Attending Dr: Copies to: Peter [...] FINDINGS Impression dictated by: Johan Velazquez Jr., D.O.10/19/2023 12:21 PM Dictation Location: [facility] Transcribed By: [facility] 10/19/23 1221 Dictated By: Johan Velazquez Jr, DO 10/19/23 1219 Signed By: 10/19/23 1221 Normal [facility] pH of Urine by Test stripOrd ered By: Peter Veliz on 10-19-2023 pH (U) 6.5 [pH] Normal 5.0-9.0 [facility] Comment on above: Order Comment: Name Collection Type:: Clean-Voided Midstream Performed By: #### C DEYVI PARKINSON, CBC #### [place] [id number] [facility] CBC panel Auto (Bld)on 10-15 Erythrocyte distribution width (RBC) [Ratio] 13.3 % Normal 11.5-14.5 [facility] Comment on above: Performed By: #### 5 8410-2 ####JOLENE Cantu ([id number])[facility] ([facility])[address] [place] [address] Hematocrit (Bld) [Volume fraction] 39.7 % Normal 36.0-46.0 [facility] Comment on above: Performed By: #### 5 8410-2 ####JOLENE Cantu ([id number])[facility] ([facility])[address] [place] [address] Hemoglobin (Bld) [Mass/Vol] 12.8 g/dL Normal 12.0-16.0 [facility] Comment on above: Performed By: #### 5 8410-2 ####JOLENE Cantu ([id number])[facility] ([facility])[address] [place] [address] MCH (RBC) [Entitic mass] 30.8 pg Normal 26.0-34.0 [facility] Comment on above: Performed By: #### 5 8410-2 ####JOLENE Cantu ([id number])[facility] ([facility])[address] [place] [address] MCHC (RBC) [Mass/Vol] 32.2 g/dL Normal 32.0-36.0 [facility] Comment on above: Performed By: #### 5 8410-2 ####JOLENE Cantu ([id number])[facility] ([facility])[address] [place] [address] MCV (RBC) [Entitic vol] 96 fL Normal 80-100 [facility] Comment on above: Performed By: #### 5 8410-2 ####JOLENE Cantu ([id number])[facility] ([facility])[address] [place] [address] 19021 Nucleated RBC/100 WBC (Bld) [Ratio] 0.0 /100 WBCs Normal 0.0-0.0 [facility] Comment on above: Performed By: #### 5 8410-2 ####JOLENE Cantu (55333)[facility] ([facility])[address] [place] [address] Platelets (Bld) [#/Vol] 268 x10*3/uL Normal 150-450 [facility] Comment on above: Performed By: #### 5 8410-2 ####JOLENE Cantu (84255)[facility] ([facility])[address] [place] [address] RBC (Bld) [#/Vol] 4.15 x10*6/uL Normal 4.00-5.20 [facility] Comment on above: Performed By: #### 5 8410-2 ####JOLENE Cantu (59801)[facility] ([facility])[address] [place] [address] WBC (Bld) [#/Vol] 6.6 x10*3/uL Normal 4.4-11.3 [facility] Comment on above: Performed By: #### 5 8410-2 ####JOLENE Cantu (60807)[facility] ([facility])[address] [place] [address] Coding Summaryon 10-16-2023 Coding Summary HTMLBase 64 AmumbnxwQVj2tQl+PGhlYWQ +WM4AWTTuC24byDAdfJ9oW6 NMTElOSywgQVBQTElOSyIgb gEyCN4gfKUbXEKf IC8+PX1gXJQfKcedrJAep2P 3eAM1R53pal7eQOyenNO4KQ KaLyOuqluza3gkiAv9HYeoG mluOyBt JMLrcB97LGU3jQ85Mw00uAE spNZfd5hjlDj4MeKhZFLpZH R9fCfrWZnem3BoVBMxX24yu HRxz2O9 CNAxfTnklSZiQfQiaWZ6hX4 sIXgtbivdl8rycrqeAbw8ie 20kTXml7U8qTS6N7MdlnS4P GJvbGQg XkctpGGQiJ1aecybo8wfpei eRwTyXLJeQPg8GWv1FOLtlR wpYdJgEB42ULU8DZTablInK 2FsLWFs oNzdDoQ2o4X6Gc6WI2GCMct vJ9XNLEQXZBjfkTV+PC90cj 31F0OsUjwdEli9LPGlBYO6t ZY4uP2y FVIcZCafh9T9xKM7P7YqzcG umn2is0uqBXHqPNoyF95qrN Dqo8G1RCCngAA8BYUmqRflZ iBzaG93 Oyc+WBEsjHjcj2PjBsunx6p zy4mdgDj2YkmfNPOuboQtwC wnQFE7q3EiFx1aLRPfpZJ2h GH3dC9y JhErHsK7KLjpB795XrCseTE hGopdC83eJ4LmmEZ+PHRyPj z6RZFgoDlgWH5gN0ZkYXYoq mctbGVm hKbtRW3zVRTejaxgBREqsH1 cWHLfI7y6EuUbPqA6UYuqS8 XgDYCecctgZt20fM0rXgHhD zN6EFym Y4OfrkR9VXTjeMZhXZclEYG 0K50on9J0YPBpTJJoKND4xM S4iQ0oaUuiacuomEFusUlno mVydGlj LAapHPecP162EYCmtZfpTnF vZGluZyBEYXRlOiAgMDcvMj QvMjAyNDwvdGQ+VWXhSZL2s WxlPSAn fKFtKWeqAd6oiPtwqHjqLJ4 eVOPhlzkmHXNwaF2fXHPgkT YebIucOR3qQSXuzjhzs545J iAxMHB0 MZNlaOOeI3SrpM1wRxZkQXO zXQPeI8TfkHVsQJvcL736BG laXhZ3QMYmpuRpB6SzRKCyp WduOiB0 t1D0Sq6Wp4CxgymsA5DdxDW tOnFhJxazVZe3F8MtXworgP I+MK65WETpAQ83NRc8CML1m WxlPSdi TUPcI5OshQ8yOyRuWQOtXUC kOyc+PHRhYmxlIHdpZHRoPS iqYSLoCdLdzTdnCZ2rFh7vL GVyLWNv lYexrJVpXhBxh9dgOYCnYNz fNE0yoHgfK1HkfUI9SMMcr1 y5He64K92kN2IudVV+PGNvb SX8lMH4 kU5pTmTtSfW8WAwvW599AuI imQPoQrxez4ioc6djoWo9Za H4TRYsieMhxRasZVV7r9JcV o94L13n IHdpZHRoPSIxNSUiIHZhbGl bdt0kvM7uAi6+EIGmrKS4bC Q9fQ3eBzYaBwK8SLzfY648P nRvcCIv Nfovy3sdi1npuUx7SdSxAPP ovfIalUeyEPJ8p6QrQl61J0 WuyTxgw3TsHnt2ja69sRFit 5G6nRM1 I3FrQDWzndauyIHkkSgqDT0 aSGWwvbegMEAifE8kQKLnH5 v5LuRrFoD4JZyaU2LszfR0I GJvbGQg LNIllJVMdD5ngygek5aqltt lOhQvPVWqGJj4OMa4ZUFjvS bnSxLcHVU2PzH5XRE8lWXam J2nuYkl rjflyR5rNpp+VNL7aEJikQY UPR4wSnsejXK+IAXgWBI2bC nsZHlmVYBrqI8vJVObS6g8H iAwLjA1 YJofX7PpigD9GTYtqXEyQRB ztEGAjO8yfajdu1hugfobYp PsNHYlNDf2LYw8MMOmaUedZ iBsZWZ0 PlB2TVM0aVVowP3pwShawno ejY3oCan+WzcxnKkrNRT0OS l1H9DiEpq2UIBkiExrZW9ur GFkZGlu Jt7gpOgibWpcBF7rKSHoulg xj998NmVqq8olDCTpmRGbZK ztJHC3C45cn4F0PCCyXKJkR WX7yNH4 sK1azPtquwcbbZQdiEnyyeX ihNfrOJaaATjxM212QDIkiL gjScRtUXl8Q9XsUtu7VPUms OomJI2z cMFbGZhwLe9zbBovqLsbSW7 mAVYgamfgi193CoFcn5esLT DhuETjCNsxGVC0K07vg6J8Z CMwMDAw FXT3aJM0nS9wkIddsmjnyIE mdDsgdmVydGljYWwtYWxpZ2 03JUNrtYlmReYocOe6N9OoF wy1LZPp yKivRI6vnTEnJXhvVp7brBv xiOxsEC6iBWLiyzwcx460Wx Opm8bkEYXixNFuSDgyQPC1D 30hr9R7 NQHlPSIaGSV5nJW8pB0tcCr nbjogbGVmdDsgdmVydGljYW rnQWofM701ZAQtdClhWgWgw GllbnQg SNdsSZh8N1QjHabrtMR+PC9 1OVGeZQ92xGVoeUAdj0munD i6ZmJcDJFnTCZ2hYaiTHnci 3JkZXIt D26htCOmd7C1BJMgeJizjNF cSySljPM4eZ3wVJveloqww0 yvgvacAmavi4tegd60fE75H 29sIHdp ZHRoPSIzMCUiIHZhbGlnbj0 ldU7vPl7+YUZhcYS5jZD6dL 5pYTGfXvV2AOcyC075ScPbo CIvPjxj b5iji0oigWg4YvD5CGPfrfR onGxrDQR1a0DbYa29R38aSJ dpZHRoPSIyMCUiIHZhbGlnb a1lmW4y Ii8+BRNstPJ5kJU0cZ7mFcE wPlF9LZaiH329FeVdeYYbTw jvQ54hP6PucAB+LNFyWcx2B CBzdHls MK8idHAaWCxvYe4dNDK7HmX aSuIgXWixU6ZhRWDcciiueu rmxDF9RDKzOPPsxX10Yd9gm DogMTBw oEXGpF3bthmrd3uyoqauXfH dYSTgGLw0AYs3QVDjrNkoGv SuBGC8FcY8RWF0aJDkfY5mz Glnbjog nG9gA6HbBALbdqxzGh83oJ1 kDdQdCrB8CVsqJig+TElFQi ppGZZMTFOAGVNJYuxZUkH1H 8GoJvm5 IOKsiNsqQD3gyDRuYZrbPo3 nwXvlqNsqVP4vHYBistzdTI NstL0uHOOceKEpnTeyJH8oH TBpbjtm q521GmVgXHC9IIHdzHTqY4G tmG9dYfRnSVVhUHDhX3FfsJ FhWGloN011MFufAzU2JSDnr fPcC9Wm YGPgoYhuObQ2m7B8Jz9lUw8 eAQ7xJXf3JF84XX85kBXlb9 S0qBZ5B3RuUTVtbimebtbqg ZU9PVVh UEFpbM17nPLkUGqoMx6uw5E 2i584UMWiLDZfjC41Ki9taS jiMXTidLQKpG9qidpib6txb jogIzAw RBMvDMd6HRd5TLAkiIzsAsW cBRA0FlA2JDG7dDEwcM8ibR xjxqtbhQ7uQci+NDYgWWVhc wI6S3Yc Psw4OOXlzHgxWD1ujHJiCFe lBi1sdOlmmWpmVQ6fIKJidk mlTYDzcT6sFIGjdAPpxNweZ V6iUBUv rfbgz169KwVoHDK3DFVsyGI kY6BbgY2oJaRdPYTlQHDmO1 IypCPhPOnlO494SNgqJyA5H HZlcnRp Z9LbVDMurPcyFqU0g4H0Kd1 CFN7EBEF0M5ZlPum5ERXgpZ hmGX0xwLOgVKvoLq5mcUohz ZtnAO7i TMKyohjnLYRljN1sQEMobTT flOhfDR6gQOPxcvvbt352Jk NxNUW1NBOcxOEnF1OgiS2wM iAjMDAw BJJlB2SbrLFyWRboO427CEb nAiG9KVRdksCyZ6DyPOPwuU cxMpF9l1G5Wd2OxVShE1AsD 0b9W0Hg PjwvdHI+RB83URVaFC15yCE tzRNde4xlnUi2FyXcWCLpMD D7tPjnNKlio4IgARMvH19tt YAay1S4 TFAqjYqgwENhCaPrgLC6xV7 cYIhpvfinb8udqbgpJhhbb1 oqid19wV96I11dJCogYUZbA SIzMCUi IWKxsTpgru8geY2kKv3+PGN vzLT5vBX6uH1fRoEhUjD5PO lqZ731InZyrVFaZwymb0thy 0wjjOa2 UxFhMDDmyoTziCwoICZ2a9Z jTl56X17bYMjcGQHxTHVuXE DqYIZosJbgjo5mjU9bUs0+P M9gq2ud il03pQ49gKD+BNIoACQ8qVl sCXtjKOJfbN9dALtvYjA3ZN ToInNuaC09pZCtDIhePu8he WdodDog RF9tIEQrnhzbp047IcFze7u mDMMssURhXWwaXNX4Z04me0 J7WHLtLTNeQMT2rGQ4fX1sg Glnbjog bGVmdDsgdmVydGljYWwtYWx jG387IYMklBmcSqDvzPTzM9 uyptCVQQ7gXhqgcJU+PHRkI XE4pQir MFnoXIYenF7zIXMcR3q5AuR wAdH2NUjnM7GbtpR5CPDohH MkRBBgpGGXdW7xyhoji4voy jogIzAw WTXuONq0ASk0TZHikCsmKfY uDWD5IdR0TVI9eVZsrP0jrY mqlmetrZ9lYbp+RklOOjwvd GQ+PHRk IFB3uTbrZYrtIGJftX4wBTG aO0k4ObEpKmL3FHdyF6Avma P6CFAmdKAxTRFpeGRTjX5bz zjdw8co pkrbTtAcQNIbYTi2KVa2MXZ fvOfkHnBeTUU2RdG3UIS8pP RekO8zgXabdzsraL6pGcd+T VJOOjwv dGQ+ADIuHRQ2sCngPZlkLZC jwM0cFWKlJ0a8BdDoOsS1CK ydH0JixaW5EJFfuUHmLILne IUTiE8c khorw9gtbsawEkThJFNfBAz 4TJv6KOXitMeuFcVuUDI7Aq W2ZAZ6bNXdnQ2vfCrlqghiz G9wOyc+ PUG3VFK2PH05XP26D8QtBtg vdGFibGU+PHRhYmxlIHdpZH ByLOtlAHHfRqCbiEofHL3mK z9eIZMp LWN (more content not included)... Normal [facility] Renal function 2000 panelon 10-16-2023 Albumin BCP dye [Mass/Vol] 3.7 g/dL Normal 3.4-5.0 [facility] Comment on above: Performed By: #### 2 4362-6 ####JOLENE Cantu (96529)[facility] ([facility])[address] [place] [address] Anion gap [Moles/Vol] 11 mmol/L Normal 10-20 [facility] Comment on above: Performed By: #### 2 4362-6 ####JOLENE Cantu (68315)[facility] ([facility])[address] [place] [address] Calcium [Mass/Vol] 8.1 mg/dL Low 8.6-10.6 [facility] Comment on above: Performed By: #### 2 4362-6 ####JOLENE Cantu (10586)[facility] ([facility])[address] [place] [address] Chloride [Moles/Vol] 100 mmol/L Normal 98-107 [facility] Comment on above: Performed By: #### 2 4362-6 ####JOLENE RONQUILLO L (54643)[facility] ([facility])[address] [place] [address] CO2 [Moles/Vol] 30 mmol/L Normal 21-32 [facility] Comment on above: Performed By: #### 2 4362-6 ####JOLENE Cantu (24502)[facility] ([facility])[address] [place] [address] Creatinine [Mass/Vol] 0.62 mg/dL Normal 0.50-1.05 [facility] Comment on above: Performed By: #### 2 4362-6 ####JOLENE Cantu (37743)[facility] ([facility])[address] [place] [address] GFR/1.73 sq M.predicted MDRD (S/P/Bld) [Vol rate/Area] mL/min/{1.73_m2} Normal >60 [facility] Comment on above: Result Comment: Calc ulations of estimated GFR are performed using the 2020 CKD-EPI Study Refit equation without the race variable for the IDMS-Traceable creatinine methods.https://jasn.asnjournals.org/content///A SN.8459403460 Performed By: #### 2 4362-6 ####JOLENE Cantu (93667)[facility] ([facility])[address] [place] [address] Glucose [Mass/Vol] 86 mg/dL Normal 74-99 [facility] Comment on above: Performed By: #### 2 4362-6 ####JOLENE Cantu (60331)[facility] ([facility])[address] [place] [address] Phosphate [Mass/Vol] 3.6 mg/dL Normal 2.5-4.9 [facility] Comment on above: Result Comment: The performance characteristics of phosphorus testing in heparinized plasma have been validated by the individual laboratory site where testing is performed. Testing on heparinized plasma is not approved by the FDA; however, such approval is not necessary. Performed By: #### 2 4362-6 ####JOLENE Cantu (60259)[facility] ([facility])[address] [place] [address] Potassium [Moles/Vol] 4.3 mmol/L Normal 3.5-5.3 [facility] Comment on above: Performed By: #### 2 4362-6 ####JOLENE Cantu ([id number])[facility] ([facility])[address] [place] [address] Sodium [Moles/Vol] 137 mmol/L Normal 136-145 [facility] Comment on above: Performed By: #### 2 4362-6 ####JOLENE Cantu (87758)[facility] ([facility])[address] [place] [address] Urea nitrogen [Mass/Vol] 16 mg/dL Normal - [facility] Comment on above: Performed By: #### 2 4362-6 ####JOLENE Cantu (04302)[facility] ([facility])[address] [place] [address] CBC panel Auto (Bld)on 10-14 Erythrocyte distribution width (RBC) [Ratio] 13.0 % Normal 11.5-14.5 [facility] Comment on above: Order Comment: After transfusion completed. Performed By: #### 5 8410-2 ####JOLENE Cantu (07627)[facility] ([facility])[address] [place] [address] Hematocrit (Bld) [Volume fraction] 36.2 % Normal 36.0-46.0 [facility] Comment on above: Order Comment: After transfusion completed. Performed By: #### 5 8410-2 ####JOLENE Cantu (89689)[facility] ([facility])[address] [place] [address] Hemoglobin (Bld) [Mass/Vol] 12.4 g/dL Normal 12.0-16.0 [facility] Comment on above: Order Comment: After transfusion completed. Performed By: #### 5 8410-2 ####JOLENE Cantu (15605)[facility] ([facility])[address] [place] [address] 31505 MCH (RBC) [Entitic mass] 31.5 pg Normal 26.0-34.0 [facility] Comment on above: Order Comment: After transfusion completed. Performed By: #### 5 8410-2 ####JOLENE Cantu (98738)[facility] ([facility])[address] [place] [address] 27593 MCHC (RBC) [Mass/Vol] 34.3 g/dL Normal 32.0-36.0 [facility] Comment on above: Order Comment: After transfusion completed. Performed By: #### 5 8410-2 ####JOLENE Cantu (14115)[facility] ([facility])[address] [place] [address]131 MCV (RBC) [Entitic vol] 92 fL Normal 80-100 [facility] Comment on above: Order Comment: After transfusion completed. Performed By: #### 5 8410-2 ####JOLENE Cantu (33720)[facility] ([facility])[address] [place] [address]14 Nucleated RBC/100 WBC (Bld) [Ratio] 0.0 /100 WBCs Normal 0.0-0.0 [facility] Comment on above: Order Comment: After transfusion completed. Performed By: #### 5 8410-2 ####JOLENE Cantu (84000)[facility] ([facility])[address] [place] [address] Platelets (Bld) [#/Vol] 261 x10*3/uL Normal 150-450 [facility] Comment on above: Order Comment: After transfusion completed. Performed By: #### 5 8410-2 ####JOLENE Cantu (35408)[facility] ([facility])[address] [place] [address] RBC (Bld) [#/Vol] 3.94 x10*6/uL Low 4.00-5.20 [facility] Comment on above: Order Comment: After transfusion completed. Performed By: #### 5 8410-2 ####JOLENE Cantu (47648)[facility] ([facility])[address] [place] [address] WBC (Bld) [#/Vol] 10.8 x10*3/uL Normal 4.4-11.3 [facility] Comment on above: Order Comment: After transfusion completed. Performed By: #### 5 8410-2 ####JOLENE Cantu (02736)[facility] ([facility])[address] [place] [address] Vancomycinon 10-15-2023 Vancomycin [Mass/Vol] 17.4 ug/mL Normal 5.0-20.0 [facility] Comment on above: Order Comment: Vanco mycin [...] Performed By: #### 2 0578-1 ####JOLENE Cantu (19474)[facility] ([facility])[address] [place] [address] Bacteria identifiedon 2023 Bacteria identified Cx Nom (Unsp spec) [facility] Comment on above: Performed By: #### 6 463-4 ####JOLENE Cantu (55458)[facility] ([facility])[address] [facility] [place] [address] Bacteria identified Cx Nom (Unsp spec) [facility] Comment on above: Performed By: #### 6 463-4 ####JOLENE Cantu (15491)[facility] ([facility])[address] [facility] [place] [address] Bacteria identified Cx Nom (Unsp spec) [facility] Comment on above: Performed By: #### 6 463-4 ####JOLENE Cantu (55860)[facility] ([facility])[address] [facility] [place] [address] Bacteria identified Cx Nom (Unsp spec) [facility] Comment on above: Performed By: #### 6 463-4 ####JOLENE Cantu (21878)[facility] ([facility])[address] [facility] [place] [address] Bacteria identified Cx Nom (Unsp spec) [facility] Comment on above: Performed By: #### 6 463-4 ####JOLENE Cantu (02217)[facility] ([facility])[address] [facility] [place] [address] Blood type and Indirect anti body screen panel (Bld)on 10-13-2023 ABO group Nom (Bld) O [facility] Comment on above: Performed By: #### 3 4532-2 ####JOLENE Cantu ([id number])[facility] ([facility])[address] [place] [address] Blood group antibody screen Ql Negative [facility] Comment on above: Performed By: #### 3 4532-2 ####JOLENE Cantu (22113)[facility] ([facility])[address] [place] [place] [address] D Ag Ql (Bld) Positive [facility] Comment on above: Performed By: #### 3 4532-2 ####JOLENE Cantu (08995)[facility] ([facility] [place] [address] CBC panel Auto (Bld)on 10-12 Erythrocyte distribution width (RBC) [Ratio] 12.9 % Normal 11.5-14.5 [facility] Comment on above: Performed By: #### 5 8410-2 ####JOLENE Cantu ([id number])[facility] ([facility])[address] [place] [address] Hematocrit (Bld) [Volume fraction] 38.9 % Normal 36.0-46.0 [facility] Comment on above: Performed By: #### 5 8410-2 ####JOLENE Cantu ([id number])[facility] ([facility])[address] [place] [address] Hemoglobin (Bld) [Mass/Vol] 12.7 g/dL Normal 12.0-16.0 [facility] Comment on above: Performed By: #### 5 8410-2 ####JOLENE Cantu ([id number])[facility] ([facility])[address] [place] [address] MCH (RBC) [Entitic mass] 30.4 pg Normal 26.0-34.0 [facility] Comment on above: Performed By: #### 5 8410-2 ####JOLENE Cantu ([id number])[facility] ([facility])[address] [place] [address] MCHC (RBC) [Mass/Vol] 32.6 g/dL Normal 32.0-36.0 [facility] Comment on above: Performed By: #### 5 8410-2 ####JOLENE Cantu ([id number])[facility] ([facility])[address] [place] [address] MCV (RBC) [Entitic vol] 93 fL Normal 80-100 [facility] Comment on above: Performed By: #### 5 8410-2 ####JOLENE Cantu ([id number])[facility] ([facility])[address] [place] [address] Nucleated RBC/100 WBC (Bld) [Ratio] 0.0 /100 WBCs Normal 0.0-0.0 [facility] Comment on above: Performed By: #### 5 8410-2 ####JOLENE Cantu ([id number])[facility] ([facility])[address] [place] [address] Platelets (Bld) [#/Vol] 293 x10*3/uL Normal 150-450 [facility] Comment on above: Performed By: #### 5 8410-2 ####JOLENE Cantu ([id number])[facility] ([facility])[address] [place] [address] RBC (Bld) [#/Vol] 4.18 x10*6/uL Normal 4.00-5.20 [facility] Comment on above: Performed By: #### 5 8410-2 ####JOLENE Cantu ([id number])[facility] ([facility])[address] [place] [address] WBC (Bld) [#/Vol] 5.5 x10*3/uL Normal 4.4-11.3 [facility] Comment on above: Performed By: #### 5 8410-2 ####JOLENE Cantu ([id number])[facility] ([facility])[address] [place] [address] HCG ( test) IA.rapi d Ql (U)on 10-13-2023 HCG ( test) Ql (U) Negative Normal NEGATIVE [facility] Comment on above: Performed By: #### 8 0384-1 ####JOLENE Cantu ([id number])[facility] ([facility])[address] [place] [address] PT and aPTT panel Coag (PPP) on 10-13-2023 aPTT Coag (PPP) [Time] 28 s Normal 27-38 [facility] Comment on above: Order Comment: The A PTT is no longer used for monitoring Unfractionated Heparin Therapy. For monitoring Heparin Therapy, use the Heparin Assay. Performed By: #### 3 4529-8 ####JOLENE Cantu ([id number])[facility] ([facility])[id number] [place] [address] INR Coag (PPP) [Relative time] 1.0 Normal 0.9-1.1 [facility] Comment on above: Order Comment: The A PTT is no longer used for monitoring Unfractionated Heparin Therapy. For monitoring Heparin Therapy, use the Heparin Assay. Performed By: #### 3 4529-8 ####JOLENE Cantu ([id number])[facility] ([facility])[address] [place] [address] PT Coag (PPP) [Time] 10.9 s Normal 9.8-12.8 [facility] Comment on above: Order Comment: The A PTT is no longer used for monitoring Unfractionated Heparin Therapy. For monitoring Heparin Therapy, use the Heparin Assay. Performed By: #### 3 4529-8 ####JOLENE Cantu ([id number])[facility] ([facility])[id number] [place] [address] Renal function 2000 panelon 10-13-2023 Albumin BCP dye [Mass/Vol] 3.6 g/dL Normal 3.4-5.0 [facility] Comment on above: Performed By: #### 2 4362-6 ####JOLENE Cantu ([id number])[facility] ([facility])[id number] [place] [address] Anion gap [Moles/Vol] 14 mmol/L Normal 10-20 [facility] Comment on above: Performed By: #### 2 4362-6 ####JOLENE Cantu ([id number])[facility] ([facility])[address] [place] [address] Calcium [Mass/Vol] 8.0 mg/dL Low 8.6-10.6 [facility] Comment on above: Performed By: #### 2 4362-6 ####JOLENE Cantu ([id number])[facility] ([facility])[address] [place] [address] Chloride [Moles/Vol] 104 mmol/L Normal 98-107 [facility] Comment on above: Performed By: #### 2 4362-6 ####JOLENE Cantu ([id number])[facility] ([facility])[address] [place] [address] CO2 [Moles/Vol] 24 mmol/L Normal 21-32 [facility] Comment on above: Performed By: #### 2 4362-6 ####JOLENE Cantu ([id number])[facility] ([facility])[address] [place] [address] Creatinine [Mass/Vol] 0.70 mg/dL Normal 0.50-1.05 [facility] Comment on above: Performed By: #### 2 4362-6 ####JOLENE Cantu ([id number])[facility] ([facility])[address] [place] [address] GFR/1.73 sq M.predicted MDRD (S/P/Bld) [Vol rate/Area] mL/min/{1.73_m2} Normal >60 [facility] Comment on above: Result Comment: Calc ulations of estimated GFR are performed using the 2020 CKD-EPI Study Refit equation without the race variable for the IDMS-Traceable creatinine methods.https://jasn.asnjournals.org/content//A SN.[id number] Performed By: #### 2 4362-6 ####JOLENE Cantu ([id number])[facility] ([facility])[address] [place] [address] Glucose [Mass/Vol] 129 mg/dL High 74-99 [facility] Comment on above: Performed By: #### 2 4362-6 ####JOLENE Cantu (89727)[facility] ([facility])[address] [place] [address] Phosphate [Mass/Vol] 2.2 mg/dL Low 2.5-4.9 [facility] Comment on above: Result Comment: The performance characteristics of phosphorus testing in heparinized plasma have been validated by the individual laboratory site where testing is performed. Testing on heparinized plasma is not approved by the FDA; however, such approval is not necessary. Performed By: #### 2 4362-6 ####JOLENE Cantu ([id number])[facility] ([facility])[address] [place] [address] Potassium [Moles/Vol] 3.7 mmol/L Normal 3.5-5.3 [facility] Comment on above: Performed By: #### 2 4362-6 ####JOLENE Cantu ([id number])[facility] ([facility])[address] [place] [address] Sodium [Moles/Vol] 138 mmol/L Normal 136-145 [facility] Comment on above: Performed By: #### 2 4362-6 ####JOLENE Cantu (92514)[facility] ([facility])[address] [place] [address] Urea nitrogen [Mass/Vol] 12 mg/dL Normal 6-23 [facility] Comment on above: Performed By: #### 2 4362-6 ####JOLENE Cantu (58245)[facility] ([facility])[address] [place] [address] Urinalysis complete panel (U )on 10-13-2023 Appearance (U) Clear Normal Clear [facility] Comment on above: Performed By: #### 2 4356-8 ####JOLENE Cantu (43158)[facility] ([facility])[address] [place] [address] Bilirubin (U) [Mass/Vol] Negative Normal NEGATIVE [facility] Comment on above: Performed By: #### 2 4356-8 ####JOLENE Cantu (42960)[facility] ([facility])[address] [place] [address] Color (U) Light-Yellow Normal Light-Yellow , Yellow, Dark-Yellow [facility] Comment on above: Performed By: #### 2 4356-8 ####JOLENE Cantu ([id number])[facility] ([facility])[address] [facility] [place] [address] Glucose Auto test strip (U) [Mass/Vol] Normal Normal Normal [facility] Comment on above: Performed By: #### 2 4356-8 ####JOLENE Cantu ([id number])[facility] ([facility])[address] [place] [address] Ketones (U) [Mass/Vol] TRACE Abnormal NEGATIVE Un [facility] Comment on above: Performed By: #### 2 4356-8 ####JOLENE Cantu (42281)[facility] ([facility])[address] [facility] [place] [address] Leukocyte esterase Auto test strip Ql (U) Negative Normal NEGATIVE [facility] Comment on above: Performed By: #### 2 4356-8 ####JOLENE Cantu ([id number])[facility] ([facility])[address] [facility] [place] [address] Nitrite Auto test strip Ql (U) Negative Normal NEGATIVE [facility] Comment on above: Performed By: #### 2 4356-8 ####JOLENE Cantu (97718)[facility] ([facility])[address] [facility] [place] [address] pH (U) 6.5 [pH] Normal 5.0, 5.5, 6.0, 6.5, 7.0, 7.5, 8.0 [facility] Comment on above: Performed By: #### 2 4356-8 ####JOLENE Cantu (82469)[facility] ([facility])[address] [place] [address] Protein (U) [Mass/Vol] Negative Normal NEGAT ALEXANDRE, 10 (TRACE), 20 (TRACE) [facility] Comment on above: Performed By: #### 2 4356-8 ####JOLENE Cantu (37924)[facility] ([facility])[address] [place] [address] RBC (U) [#/Vol] Negative Normal NEGATIVE [facility] Comment on above: Performed By: #### 2 4356-8 ####JOLENE RONQUILLO L (34311)[facility] ([facility])[address] [place] [address] Specific gravity (U) [Rel density] 1.016 Normal 1.005-1.035 [facility] Comment on above: Performed By: #### 2 4356-8 ####JOLENE CASTROER L (08273)[facility] ([facility])[address] [place] [address] Urobilinogen (U) [Mass/Vol] Normal Normal Normal [facility] Comment on above: Performed By: #### 2 4356-8 ####JOLENE Cantu (83667)[facility] ([facility])[address] [place] [address] Vancomycinon 10-13-2023 Vancomycin [Mass/Vol] 15.8 ug/mL Normal 5.0-20.0 [facility] Comment on above: Order Comment: Vanco mycin [...] Performed By: #### 2 0578-1 ####JOLENE Cantu (70397)[facility] ([facility])[address] [place] [address] PICC >5 YR BEDSIDE IMAGINGon 10-12-2023 PICC >5 YR BEDSIDE IMAGING These images are not reportable by radiology and will not be interpreted by Radiologists. [facility] Vancomycinon 10-12-2023 Vancomycin [Mass/Vol] 4.7 ug/mL Low 5.0-20.0 [facility] Comment on above: Order Comment: Vanco mycin [...] Performed By: #### 2 0578-1 ####JOLENE Cantu ([id number])[facility] ([facility])[address] [place] [address] Blood type and Indirect anti body screen panel (Bld)on 10-11-2023 ABO group Nom (Bld) O [facility] Comment on above: Performed By: #### 3 4532-2 ####JOLENE Cantu (18098)[facility] ([facility])[address] [place] [address] Blood group antibody screen Ql Negative [facility] Comment on above: Performed By: #### 3 4532-2 ####JOLENE Cantu (13427)[facility] ([facility])[address] [place] [address] D Ag Ql (Bld) Positive [facility] Comment on above: Performed By: #### 3 4532-2 ####JOLENE Cantu (55222)[facility] ([facility])[address] [place] [address] C reactive proteinon 024 CRP [Mass/Vol] 1.04 mg/dL High <1.00 [facility] Comment on above: Performed By: #### 1 988-5 ####JOLENE Cantu (01032)[facility] ([facility])[address] [place] [address] CBC W Auto Differential pane l (Bld)on 10-11-2023 Basophils (Bld) [#/Vol] 0.03 x10*3/uL Normal 0.00-0.10 [facility] Comment on above: Performed By: #### 5 7021-8 ####JOLENE Cantu (71935)[facility] ([facility])[address] [place] [address] Basophils/100 WBC (Bld) 0.3 % Normal 0.0-2.0 [facility] Comment on above: Performed By: #### 5 7021-8 ####JOLENE Cantu (14181)[facility] ([facility])[address] [place] [address] Eosinophils (Bld) [#/Vol] 0.27 x10*3/uL Normal 0.00-0.70 [facility] Comment on above: Performed By: #### 5 7021-8 ####JOLENE Cantu (48918)[facility] ([facility])[address] [place] [address] 88996 Eosinophils/100 WBC (Bld) 2.4 % Normal 0.0-6.0 [facility] Comment on above: Performed By: #### 5 7021-8 ####JOLENE Cantu (35125)[facility] ([facility])[address] [place] [address] Erythrocyte distribution width (RBC) [Ratio] 12.9 % Normal 11.5-14.5 [facility] Comment on above: Performed By: #### 5 7021-8 ####JOLENE Cantu (21012)[facility] ([facility])[address] [place] [address] 31357 Hematocrit (Bld) [Volume fraction] 39.2 % Normal 36.0-46.0 [facility] Comment on above: Performed By: #### 5 7021-8 ####JOLENE Cantu (03506)[facility] ([facility])[address] [place] [address] Hemoglobin (Bld) [Mass/Vol] 13.6 g/dL Normal 12.0-16.0 [facility] Comment on above: Performed By: #### 5 7021-8 ####JOLENE RONQUILLO L (01789)[facility] ([facility])[address] [place] [address] Immature granulocytes (Bld) [#/Vol] 0.05 x10*3/uL Normal 0.00-0.70 [facility] Comment on above: Performed By: #### 5 7021-8 ####JOLENE Cantu (27838)[facility] ([facility])[address] [place] [address] Immature granulocytes/100 WBC (Bld) 0.4 % Normal 0.0-0.9 [facility] Comment on above: Result Comment: Aspen ture Granulocyte Count (IG) includes promyelocytes, myelocytes and metamyelocytes but does not include bands. Percent differential counts (%) should be interpreted in the context of the absolute cell counts (cells/UL). Performed By: #### 5 7021-8 ####JOLENE Cantu (22358)[facility] ([facility])[address] [place] [address] Lymphocytes (Bld) [#/Vol] 2.27 x10*3/uL Normal 1.20-4.80 [facility] Comment on above: Performed By: #### 5 7021-8 ####JOLENE Cantu (08005)[facility] ([facility])[address]447 [place] [address] Lymphocytes/100 WBC (Bld) 19.9 % Normal 13.0-44.0 [facility] Comment on above: Performed By: #### 5 7021-8 ####JOLENE Cantu (46556)[facility] ([facility])[address] [place] [address] MCH (RBC) [Entitic mass] 31.0 pg Normal 26.0-34.0 [facility] Comment on above: Performed By: #### 5 7021-8 ####JOLENE Cantu (04625)[facility] ([facility])[address] [place] [address] MCHC (RBC) [Mass/Vol] 34.7 g/dL Normal 32.0-36.0 [facility] Comment on above: Performed By: #### 5 7021-8 ####JOLENE Cantu (28258)[facility] ([facility])[address] [place] [address] MCV (RBC) [Entitic vol] 89 fL Normal 80-100 [facility] Comment on above: Performed By: #### 5 7021-8 ####JOLENE Cantu (49214)[facility] ([facility])[address] [place] [address] Monocytes (Bld) [#/Vol] 0.77 x10*3/uL Normal 0.10-1.00 [facility] Comment on above: Performed By: #### 5 7021-8 ####JOLENE Cantu (68358)[facility] ([facility])[address] [place] [address] Monocytes/100 WBC (Bld) 6.8 % Normal 2.0-10.0 [facility] Comment on above: Performed By: #### 5 7021-8 ####JOLENE Cantu (80545)[facility] ([facility])[address] [place] [address] Neutrophils (Bld) [#/Vol] 8.01 x10*3/uL High 1.20-7.70 [facility] Comment on above: Result Comment: Perc ent differential counts (%) should be interpreted in the context of the absolute cell counts (cells/uL). Performed By: #### 5 7021-8 ####JOLENE Cantu (04573)[facility] ([facility])[address] [place] [address] Neutrophils/100 WBC (Bld) 70.2 % Normal 40.0-80.0 [facility] Comment on above: Performed By: #### 5 7021-8 ####JOLENE Cantu (12147)[facility] ([facility])[address] [place] [address] 11281 Nucleated RBC/100 WBC (Bld) [Ratio] 0.0 /100 WBCs Normal 0.0-0.0 [facility] Comment on above: Performed By: #### 5 7021-8 ####JOLENE Cantu (39186)[facility] ([facility])[address] [place] [address] 51114 Platelets (Bld) [#/Vol] 371 x10*3/uL Normal 150-450 [facility] Comment on above: Performed By: #### 5 7021-8 ####JOLENE Cantu (08247)[facility] ([facility])[address] [place] [address] 73538 RBC (Bld) [#/Vol] 4.39 x10*6/uL Normal 4.00-5.20 [facility] Comment on above: Performed By: #### 5 7021-8 ####JOLENE Cantu (90882)[facility] ([facility])[address] [place] [address] 99832 WBC (Bld) [#/Vol] 11.4 x10*3/uL High 4.4-11.3 [facility] Comment on above: Performed By: #### 5 7021-8 ####JOLENE Cantu (37415)[facility] ([facility])[address] [place] [address] 20189 CBC panel Auto (Bld)on 10-10 Erythrocyte distribution width (RBC) [Ratio] 13.0 % Normal 11.5-14.5 [facility] Comment on above: Performed By: #### 5 8410-2 ####JOLENE Cantu (43678)[facility] ([facility])[address] [place] [address] 70637 Hematocrit (Bld) [Volume fraction] 38.2 % Normal 36.0-46.0 [facility] Comment on above: Performed By: #### 5 8410-2 ####JOLENE Cantu (75330)[facility] ([facility])[address] [place] [address] 01627 Hemoglobin (Bld) [Mass/Vol] 12.5 g/dL Normal 12.0-16.0 [facility] Comment on above: Performed By: #### 5 8410-2 ####JOLENE Cantu (48850)[facility] ([facility])[address] [place] [address] 25483 MCH (RBC) [Entitic mass] 30.3 pg Normal 26.0-34.0 [facility] Comment on above: Performed By: #### 5 8410-2 ####JOLENE Cantu (68740)[facility] ([facility])[address] [place] [address] 85659 MCHC (RBC) [Mass/Vol] 32.7 g/dL Normal 32.0-36.0 [facility] Comment on above: Performed By: #### 5 8410-2 ####JOLENE Cantu (14046)[facility] ([facility])[address] [place] [address] 68890 MCV (RBC) [Entitic vol] 93 fL Normal 80-100 [facility] Comment on above: Performed By: #### 5 8410-2 ####JOLENE Cantu (15286)[facility] ([facility])[address] [place] [address] 25754 Nucleated RBC/100 WBC (Bld) [Ratio] 0.0 /100 WBCs Normal 0.0-0.0 [facility] Comment on above: Performed By: #### 5 8410-2 ####JOLENE Cantu (02276)[facility] ([facility])[address] [place] [address] 67186 Platelets (Bld) [#/Vol] 353 x10*3/uL Normal 150-450 [facility] Comment on above: Performed By: #### 5 8410-2 ####JOLENE Cantu (82616)[facility] ([facility])[address] [place] [address] 93863 RBC (Bld) [#/Vol] 4.13 x10*6/uL Normal 4.00-5.20 [facility] Comment on above: Performed By: #### 5 8410-2 ####JOLENE Cantu (30372)[facility] ([facility])[address] [place] [address] 14539 WBC (Bld) [#/Vol] 10.4 x10*3/uL Normal 4.4-11.3 [facility] Comment on above: Performed By: #### 5 8410-2 ####JOLENE Cantu (84138)[facility] ([facility])[address] [place] [address] 89426 Coagulation surface inducedo n 10-11-2023 aPTT Coag (PPP) [Time] 33 s Normal 27-38 [facility] Comment on above: Order Comment: The A PTT is no longer used for monitoring Unfractionated Heparin Therapy. For monitoring Heparin Therapy, use the Heparin Assay. Performed By: #### 1 4979-9 ####JOLENE Cantu (25138)[facility] ([facility])[address] [place] [address] 52748 Coagulation tissue factor in ducedon 10-11-2023 PT Coag (PPP) [Time] 10.4 s Normal 9.8-12.8 [facility] Comment on above: Performed By: #### 5 902-2 ####JOLENE Cantu (54002)[facility] ([facility])[address] [place] [address] 37956 Comprehensive metabolic 2000 panelon 10-11-2023 Albumin BCP dye [Mass/Vol] 4.1 g/dL Normal 3.4-5.0 [facility] Comment on above: Performed By: #### 2 4323-8 ####JOLENE Cantu (20861)[facility] ([facility])[address] [place] [address] ALP [Catalytic activity/Vol] 88 U/L Normal 33-110 [facility] Comment on above: Performed By: #### 2 4323-8 ####JOLENE Cantu (26302)[facility] ([facility])[address] [place] [address] ALT With P-5'-P [Catalytic activity/Vol] 15 U/L Normal 7-45 [facility] Comment on above: Result Comment: Katia ents treated with Sulfasalazine may generate falsely decreased results for ALT. Performed By: #### 2 4323-8 ####JOLENE Cantu (05578)[facility] ([facility])[address] [place] [address] Anion gap [Moles/Vol] 12 mmol/L Normal 10-20 [facility] Comment on above: Performed By: #### 2 4323-8 ####JOLENE Cantu (98316)[facility] ([facility])[address] [place] [address] AST With P-5'-P [Catalytic activity/Vol] 16 U/L Normal 9-39 [facility] Comment on above: Performed By: #### 2 4323-8 ####JOLENE Cantu (72258)[facility] ([facility])[address] [place] [address] Bilirubin [Mass/Vol] 0.3 mg/dL Normal 0.0-1.2 [facility] Comment on above: Performed By: #### 2 4323-8 ####JOLENE Cantu (96622)[facility] ([facility])[address] [place] [address] Calcium [Mass/Vol] 8.5 mg/dL Low 8.6-10.6 [facility] Comment on above: Performed By: #### 2 4323-8 ####JOLENE Cantu (91171)[facility] ([facility])[address] [place] [address] Chloride [Moles/Vol] 102 mmol/L Normal 98-107 [facility] Comment on above: Performed By: #### 2 4323-8 ####JOLENE Cantu (35185)[facility] ([facility])[address] [place] [address] CO2 [Moles/Vol] 27 mmol/L Normal 21-32 [facility] Comment on above: Performed By: #### 2 4323-8 ####JOLENE Cantu (68624)[facility] ([facility])[address] [place] [address] Creatinine [Mass/Vol] 0.77 mg/dL Normal 0.50-1.05 [facility] Comment on above: Performed By: #### 2 4323-8 ####JOLENE Cantu (99449)[facility] ([facility])[address] [place] [address] GFR/1.73 sq M.predicted MDRD (S/P/Bld) [Vol rate/Area] mL/min/{1.73_m2} Normal >60 [facility] Comment on above: Result Comment: Calc ulations of estimated GFR are performed using the 2020 CKD-EPI Study Refit equation without the race variable for the IDMS-Traceable creatinine methods.https://jasn.asnjournals.org/content//A SN.4015296462 Performed By: #### 2 4323-8 ####JOLENE Cantu (88816)[facility] ([facility])[address] [place] [address] Glucose [Mass/Vol] 85 mg/dL Normal 74-99 [facility] Comment on above: Performed By: #### 2 4323-8 ####JOLENE Cantu (85059)[facility] ([facility])[address] [place] [address] Potassium [Moles/Vol] 3.8 mmol/L Normal 3.5-5.3 [facility] Comment on above: Performed By: #### 2 4323-8 ####JOLENE Cantu (52412)[facility] ([facility])[address] [place] [address] Protein [Mass/Vol] 7.5 g/dL Normal 6.4-8.2 [facility] Comment on above: Performed By: #### 2 4323-8 ####JOLENE Cantu (75427)[facility] ([facility])[address] [place] [address] 88362 Sodium [Moles/Vol] 137 mmol/L Normal 136-145 [facility] Comment on above: Performed By: #### 2 4323-8 ####JOLENE Cantu (88744)[facility] ([facility])[address] [place] [address] 04472 Urea nitrogen [Mass/Vol] 18 mg/dL Normal 6-23 [facility] Comment on above: Performed By: #### 2 4323-8 ####JOLENE Cantu (40311)[facility] ([facility])[address] [place] [address] 62283 ESR Westergren method (Bld) [Velocity]on 10-11-2023 ESR (Bld) [Velocity] 26 mm/h High 0-20 [facility] Comment on above: Performed By: #### 4 537-7 ####JOLENE Cantu (80863)[facility] ([facility])[address] [place] [address] 77883 Magnesiumon 10-11-2023 Magnesium [Mass/Vol] 1.99 mg/dL Normal 1.60-2.40 [facility] Comment on above: Performed By: #### 1 9123-9 ####JOLENE Cantu (91312)[facility] ([facility])[address] [place] [address] 66788 PT Coag (PPP) [Time]on 10-10 INR Coag (PPP) [Relative time] 0.9 Normal 0.9-1.1 [facility] Comment on above: Performed By: #### 5 902-2 ####JOLENE Cantu (07387)[facility] ([facility])[address] [place] [address] 18254 PT and aPTT panel Coag (PPP) on 10-11-2023 aPTT Coag (PPP) [Time] 32 s Normal 27-38 [facility] Comment on above: Order Comment: Tube must be full. Deliver to lab within 4 hoursThe APTT is no longer used for monitoring Unfractionated Heparin Therapy. For monitoring Heparin Therapy, use the Heparin Assay. Performed By: #### 3 4529-8 ####JOLENE Cantu (87648)[facility] ([facility])[address] [place] [address] 86765 INR Coag (PPP) [Relative time] 1.0 Normal 0.9-1.1 [facility] Comment on above: Order Comment: Tube must be full. Deliver to lab within 4 hoursThe APTT is no longer used for monitoring Unfractionated Heparin Therapy. For monitoring Heparin Therapy, use the Heparin Assay. Performed By: #### 3 4529-8 ####JOLENE Cantu (19077)[facility] ([facility])[address] [place] [address] 06037 PT Coag (PPP) [Time] 11.3 s Normal 9.8-12.8 [facility] Comment on above: Order Comment: Tube must be full. Deliver to lab within 4 hoursThe APTT is no longer used for monitoring Unfractionated Heparin Therapy. For monitoring Heparin Therapy, use the Heparin Assay. Performed By: #### 3 4529-8 ####JOLENE Cantu (69465)[facility] ([facility])[address] [place] [address] 37339 Coding Summaryon 10-07-2023 Coding Summary HTMLBase 64 AkiljwrcDKc7vDb+PGhlYWQ +CV4MOKTjW52nkDRvuT0nS9 NMTElOSywgQVBQTElOSyIgb jUiAQ2wqLKtHGGc IC8+IQ1pDWAtQoxdbBHcr8Z 7cKK4U15pwu1bCGsvtGR7KZ SkIbNthoqbu5dywKi7IZblI mluOyBt GGIkrV41XUB1tC28Kr18rBX kgBFfz5dlkAt5KjUqZILkSF A7wPnmIQiyh8ZlISYcX73mi WVck1H6 IKUtdIxoxRZuWlDgqFX1dD2 tSQlyddrmk6uygptfJys5iu 62hZXmo4I1sGS2Y5BjxnL2P GJvbGQg JtkcpXEYiY3fzjfia8fafjs bCoQkYUOqAZc2AKu9RWDtnX wfOxUuFL52LCI4AOXabkAmM 2FsLWFs bGqaWhX6d4C0Wo8WL6CSEhh wD6ATJYQYEQuhtUK+PC90cj 47P4MyBocvKwr9HGPnZVD7g QJ6jL1j FRPwUIofe6J9lMQ9F6KpsiS fwa2xs8aiWBUpIQnyG20yeM Dmz3W5KGBxoEX4VVCqnUfbY iBzaG93 Oyc+EJTnkGerj7BbBvxbl8m kp0ctzHk9UaoxQFVjlmWcdW xvTVL3i5JlSt3vAVVpwWQ8v CO6sR3b RiFfOyX8WSjhO420BuBehVO tElhyH13mS6LwsPB+PHRyPj m6LHHhsIpfKP8pR8PtWOSeb mctbGVm rTomWT0aQGCsqyxcGRCzvH1 yCRCxH2d4LuQcFaP7SShqW5 YyFEAshwezTu35eV8aQnXlM kJ6PHie P7ZyhtF7STCauGSnNYjfEGI 8X55yt3L3FDMiXRIkVFY3tT K0oV8hnXyflswbnFJtcYrhm mVydGlj UObpKZchU642YQNjpUuyCeR vZGluZyBEYXRlOiAgMDcvMT UvMjAyNDwvdGQ+PKTmWPV4n WxlPSAn tTWlNUujTe8brBysbJzqAG6 uESVsemxhROAqzS4vSWXyuF AwnYzoWG6xMAZquorhm386N iAxMHB0 DSGdtGAqX0WgdX4iWbUbLZG bHNZdA4GghXPkFLrkB763HL ovBbF9CXRdjxAsW2IsCMMrc WduOiB0 a3L9Bf7Eq9NvqlxxW1GqsUZ rBvCpQrzoEMm8F9WwMqcehD I+IO17GZVgCM22UJp4KUD3e WxlPSdi CZOoO7XlhO8xInWsKJQhIYA kOyc+PHRhYmxlIHdpZHRoPS lbGBQrErWeiPwjIV8bRu4rQ GVyLWNv fFytqKTcWqFwb2ybHVFzLFx iGE9rlUsvP0SohNI4FBLul3 g4Jf70T53xU7BwqWU+PGNvb OW8bUP8 gY5rLaUoOqE0RWasR516RyH emGKaPipvw9wrr2brpAf5Ej F6XOCnnsNuhGksKLE9f9RpE z19K96g IHdpZHRoPSIxNSUiIHZhbGl gyp2tkM4vHj3+WCMagFV4zJ X0tU5uNiGdVkU4DKrgC635F nRvcCIv Rxfxj1cyh5rxiSj5SsPtXBC xxoLggSyfPWC6u8TcPv85O8 ZdsQxce3SqLpk8fe86tFSsz 7J6mOY1 W6PxKOXiflqibZSvwNylYN8 qYFSabzjaDCXbyP8rQTCpT9 v7AyXiCdY5EIkiY1ZensS1I GJvbGQg QAGnjCHTtV3niurep6eusfv cSbAvCFClTNm5IVn9PPKezZ ymIrWhFWF3PuK9THE2nMRri T3jnSkq xhkvaT5yIri+SAC9eGMsvAD WZR6oIqaizIN+VTSgPSD9jR ugXKfhMOLgoH5uWAPqA2e0K iAwLjA1 CUquG7LrxhU6JSOheFXnQFJ gpZPOvW1vdarhr0ngqugzZo VgBYTvVGy5VUb3XIVwgUomL iBsZWZ0 CoV6NLY0dMFcwO5gtWhtffr moR5rUci+PkdffQsiNSV2YI t5I7OdAkv8JNPpiUrvDX2qd GFkZGlu Rz8xiBqbeUdgCY1kRJVtfsd sn489YiVyo3yaHIEdeNOlSD cgRDV1E18tx6W5CUBvKHDxG JP5mRZ4 zN0lcOqhzyhjgLSxjGmsjdJ xpRudASeiXFahH271TYBjtV qoBkPtXGa3B1SpBmm3SLJse NcxQK5a wFMvLKrkOo9vdEooeThtCI6 rWDClbduui687AxHun0pfQE YvaNSjZDlcGZZ8H84yq4P2L CMwMDAw EHN4oDX1dJ5xwFmvigvowIR mdDsgdmVydGljYWwtYWxpZ2 57JIXbfQlyPbXobBd5F8SeD gj4FALw cXpeEH9shZPaSMjrAf0emPe nyDecMX4tJFCtbhhmt210St Ymo4knBYObmUGzTDeeAWW7P 45jh0N0 AINxHTAkUOB9kGR1lQ0atOr nbjogbGVmdDsgdmVydGljYW mzCWxaA182AIYwgEbtWxPzc GllbnQg HYjeTKd1V2EgJtgdiRL+PC9 4QEUrIG39xZQajQBag8qnjP l7YsJtVFIvCCM4lCrgIAfef 3JkZXIt E14niTKre9P3ODNtgHrxsHB sFwFcaEC5mE7wYZnxebsaz9 qtlxauPreev0qmar14rY36X 29sIHdp ZHRoPSIzMCUiIHZhbGlnbj0 nuD3uHj8+LQFjxUN6kPE9pU 7iUFThQvS9IZfgH622SzJkp CIvPjxj d1gri9hgjYg3OxL6JYNmveA msMjoBAT6o5TuPh31P99xIS dpZHRoPSIyMCUiIHZhbGlnb h6rlN7i Ii8+IGYswTX8mJL5xI8cSbB qBfX8SBcmI919FdHbiIJaTc cgJ49uV9RskYU+PTDfSvl5J CBzdHls FC1okCFhHRedPl7lDRT5OwI jBdDpBAslF5OzVONtwtsuck tzmFJ4JYYhPAWhbY73Xi7rd DogMTBw hNALhH5gbwfbb7rfcvqmOxI qCIGwZWd7EFu4LJXfaKkbEx ZfTBF1RtA3DLE3jQMrvP3ec Glnbjog hL1eR3YwHESvjxbnLo54tQ7 zCaRtKdT9DJhdKkp+TElFQi utCJKYGYSNIQATIsqXLcG9F 5ZhDvd8 UXOpqMbbRG7naODyJJusMe4 tjQzicDbdZC9aXLXhxmsjLB NruF6pUOWenAAxeRnrSP6uR TBpbjtm y528AnWqIQO5XHZjlUSwP1W toE7qCmYuYTFrMBPoH7DnfP WiONtjQ111HUapVqO6BBIdg mSjD8Zb JWOavFenJfE0y5J6Na1lHh2 lUO4cUDw9VZ68EH80fSFgd9 A5eTK5W7SxYSSdvckipyuqn GX2YTKu HSOniE03rFUfVCpsEh3wp2H 1t780CQZzBCKpeY59Te6vrB muBIBxgISEvE1yeodxg3vwt jogIzAw STFpVDy7XMw9XJCxcHttVlM rLDB5GfU8TLU2rJMuqA1goK udyhfndT1yIsd+NDYgWWVhc hD4X8Qj Jfx3BHNefBikBS5anFMgZHy hEe9anLmtgXzyJD1fSWKxkc joVPDdvX8rUCBkvTWdnOruY N9zOJDk aepsp961LpKaDMZ5QBDwnEL wP0KctE7pLtCnSNBfHVHgL4 RdrJJeBMbfL308OYlrLgA8H HZlcnRp H7YiQIKytKcvTbL6f6M8Rr4 INN6VHUZ6O3YdMuc4YZJdzW krRT5baLUvIGrvXk1hdFlch ZthYS6l QXQfoujjPFWfdU9gIXVmsFR uaEeyFY9dPKWcldyim003Bc KvXZG1KOHdnWUeQ4FlxY3uW iAjMDAw VHRrU1AvaWFtKBlzG453QAr fLyC3GFFehfLwG7GvRAAckX tcDzE2d4Q4Lu6JcBScI6HmO 1l3L0Nq PjwvdHI+OJ15IATsUS04vYY keIXie5kzrUb8WtRyLBYpNT O3sHmrHNvgq9BxLHZbC57ge MNdw3E5 BFYfnSjeyXYrRzIklEO7cO4 gUOtyvxltb6ncnwkqGrazh8 szdx82rO53X81mSEjeUPGeU SIzMCUi ANNijTxavv0ufL1kXd2+PGN peWL3tYC8sD8zBhXdQkX5ZS tlB462BnSnaOPnVarhe2txh 4vroIi8 YtMqVALodgSlaFxwLVL5w8N iBd58G60xTTxkSXDpQNAePA HcVZKwcGrcxm8zyE9uRd1+P F2pr5lx ww16sW33pGJ+TISfOGV3gUj tWBtfPBUfpQ4kDWorPkE9VE EeUzBclC76fTKyTSvxBt4sd WdodDog DH5jQXJzoagzm248CbHut2z dUQQsdZMaPFuyBLZ4F25zn3 V9BOAnQAStDQG8wTQ1rW2xa Glnbjog bGVmdDsgdmVydGljYWwtYWx uH740PBXxdIwxLcJsmLXhG9 xlqtNJMN7jExuacHA+PHRkI EN3tQlf LUjhGXNqfE0mFIYfD5z0SoE qDzW7ZHrsT3GtftF0SRUixB DzEGKjtBNBhN3woorfh9otz jogIzAw MJWjQJf9LUc0CRDxtFjlWmB oEET5IhK9KCW7oQYsfB5yaX hmqiuggO0iSeg+RklOOjwvd GQ+PHRk ZFN1jZnkDHxnOIHlbP2oKVH dN5k1ZzCpNyV6WCgxI8Umli K9BUGtcPXgJNAotJVCfD9ov gbkc1yb ydsmOsBaQLXgRHa7EAz7QYF otHbhOoZnVMB6CoB8DQB4wZ CgdU9bnFuzmefjoL5aUae+T VJOOjwv dGQ+ZCNsERE8dTjmSUslRZF umS1hJDBpL5j4OkSkPnT8IM kdC0LgtyD8KWAupTNkIGIgc OZZaN2o ovaud1sfjdmaQzBoRULoCGb 4UTc4YCOoyGqyKnDvFZD2Pq P5XXU8rDUzgQ7jiSytbrdpm G9wOyc+ LAH2RDX3XT95BH57W4KrXbp vdGFibGU+PHRhYmxlIHdpZH YgZIywTNPkDpOhuDtwVY7pE u6bHSKs LWN (more content not included)... Normal [facility] Activated partial thrombopla stin time (aPTT) in platelet poor plasma by coagulation aOrdered By: Abby Jensen on 10-05-2023 aPTT Coag (PPP) [Time] 33.6 s 25.1-36.5 [facility] Comment on above: A hematocrit value g reater than 55% may lead to inaccurate results in coagulation testing. Patients having hematocrit values >55% require a special collection tube for coagulation studies. Please contact the laboratory at [phone] for redraw instructions. Automated basophil %Ordered By: Abby Jensen on 10-05-2023 Basophils/100 WBC (Bld) 0.4 % Normal . [facility] Comment on above: Performed By: #### U HCG, ADDONUAPLUS #### [facility] [address] [place] [address] Automated basophil countOrde red By: Abby Jensen on 10-05-2023 Basophils (Bld) [#/Vol] 0.0 10*3/uL Normal 0.0-0.2 [facility] Comment on above: Performed By: #### U HCG, ADDONUAPLUS #### [facility] [address] [place] [address] Automated blood monocyte cou ntOrdered By: Abby Jensen on 10-05-2023 Monocytes (Bld) [#/Vol] 0.7 10*3/uL Normal 0.0-0.8 [facility] Comment on above: Performed By: #### U HCG, ADDONUAPLUS #### [address] Automated eosinophil %Ordere d By: Abby Jensen on 10-05-2023 Eosinophils/100 WBC (Bld) 1.0 % Normal . [facility] Comment on above: Performed By: #### U HCG, ADDONUAPLUS #### [address] Automated eosinophil countOr dered By: Abby Jensen on 10-05-2023 Eosinophils (Bld) [#/Vol] 0.1 10*3/uL Normal 0.0-0.45 [facility] Comment on above: Performed By: #### U HCG, ADDONUAPLUS #### [facility] [address] [place] [address] Automated monocyte %Ordered By: Abby Jensen on 10-05-2023 Monocytes/100 WBC (Bld) 6.1 % Normal . [facility] Comment on above: Performed By: #### U HCG, ADDONUAPLUS #### [facility] [address] [place] [address] Automated neutrophil %Ordere d By: Abby Jensen on 10-05-2023 Neutrophils/100 WBC (Bld) 75.7 % Normal . [facility] Comment on above: Performed By: #### U HCG, ADDONUAPLUS #### [address] BNP ser/plasOrdered By: Rick Jensen on 10-05-2023 Natriuretic peptide B (Bld) [Mass/Vol] 70.0 pg/mL Normal 5-100 [facility] Comment on above: Result Comment: PERF ORMED BY: [place] [address] PATHOLOGIST PILLOWCASE CUTTER JASON WILSON M.D. Performed By: #### U HCG, ADDONUAPLUS #### [address] Bacteria identifiedon 2023 Bacteria identified Cx Nom (Bld) Normal [facility] Comment on above: Performed By: #### 6 00-7 ####JOLENE Cantu ([id number])[facility] ([facility])[address] [place] [address] Bacterial blood cultureOrder ed By: Abby Jensen on 10-05-2023 Bacteria identified Cx Nom (Bld) NO GROWTH 5 DAYS [facility] Basic Metabolic Panelon 09-22 Creatinine Clr Calc Pharmacy 116.62 Normal [facility] Comment on above: Performed By: #### U HCG, ADDONUAPLUS #### [facility] [address] [place] [address] GFR/1.73 sq M.predicted MDRD (S/P/Bld) [Vol rate/Area] mL/min/{1.73_m2} Normal [facility] Comment on above: Performed By: #### U HCG, ADDONUAPLUS #### [facility] [address] Bilirubin Test strip Ql (U)O rdered By: Abby Jensen on 10-05-2023 Bilirubin Ql (U) Negative Negative [facility] Blood Cultureon 10-05-2023 Bacteria identified Cx Nom (Bld) NO GROWTH 5 DAYS PERFORMED BY: [facility] [address] [place] [address] PATHOLOGIST PILLOWCASE CUTTER JASON WILSON M.D. Normal [facility] Comment on above: Performed By: #### V BG #### Point of Care testing , Blood type and Indirect anti body screen panel (Bld)on 10-05-2023 ABO group Nom (Bld) O Normal [facility] Comment on above: Performed By: #### 3 4532-2 ####JOLENE Cantu ([id number])[facility] ([facility])[address] [place] [address] Blood group antibody screen Ql Negative [facility] Comment on above: Performed By: #### 3 4532-2 ####JOLENE Cantu ([id number])[facility] ([facility])[address] [place] [address] D Ag Ql (Bld) Positive [facility] Comment on above: Performed By: #### 3 4532-2 ####JOLENE Cantu ([id number])[facility] ([facility])[address] [place] [address] C reactive proteinon 024 CRP [Mass/Vol] 0.98 mg/dL Normal <1.00 [facility] Comment on above: Performed By: #### 1 988-5 ####JOLENE Cantu ([id number])[facility] ([facility])[address] [place] [address] C reactive protein [Mass/vol ume] in Serum or PlasmaOrdered By: Abby Jensen on 10-05-2023 CRP [Mass/Vol] 1.0 mg/dL High 0.0-0.5 [facility] C-Reactive Proteinon 024 C-Reactive Protein 1.0 mg/dL High 0.0-0.5 [facility] Comment on above: Result Comment: PERF ORMED BY: [facility] [address] [place] [address] PATHOLOGIST PILLOWCASE CUTTER JASON WILSON M.D. Performed By: #### YARI BEE #### [facility] [address] CBC panel Auto (Bld)on 10-04 Erythrocyte distribution width (RBC) [Ratio] 12.4 % Normal 11.5-14.5 [facility] Comment on above: Performed By: #### 5 8410-2 ####JOLENE Cantu ([id number])[facility] ([facility])[address] [place] [address] Hematocrit (Bld) [Volume fraction] 36.3 % Normal 36.0-46.0 [facility] Comment on above: Performed By: #### 5 8410-2 ####JOLENE Cantu ([id number])[facility] ([facility])[address] [place] [address] Hemoglobin (Bld) [Mass/Vol] 12.5 g/dL Normal 12.0-16.0 [facility] Comment on above: Performed By: #### 5 8410-2 ####JOLENE Cantu (18928)[facility] ([facility])[address] [place] [address] MCH (RBC) [Entitic mass] 30.4 pg Normal 26.0-34.0 [facility] Comment on above: Performed By: #### 5 8410-2 ####JOLENE Cantu (22508)[facility] ([facility])[address] [place] [address] MCHC (RBC) [Mass/Vol] 34.4 g/dL Normal 32.0-36.0 [facility] Comment on above: Performed By: #### 5 8410-2 ####JOLENE Cantu ([id number])[facility] ([facility])[address] [place] [address] MCV (RBC) [Entitic vol] 88 fL Normal 80-100 [facility] Comment on above: Performed By: #### 5 8410-2 ####JOLENE Cantu ([id number])[facility] ([facility])[address] [place] [address] Nucleated RBC/100 WBC (Bld) [Ratio] 0.0 /100 WBCs Normal 0.0-0.0 [facility] Comment on above: Performed By: #### 5 8410-2 ####JOLENE Cantu ([id number])[facility] ([facility])[address] [place] [address] Platelets (Bld) [#/Vol] 422 x10*3/uL Normal 150-450 [facility] Comment on above: Performed By: #### 5 8410-2 ####JOLENE Cantu (06076)[facility] ([facility])[address] [place] [address] RBC (Bld) [#/Vol] 4.11 x10*6/uL Normal 4.00-5.20 [facility] Comment on above: Performed By: #### 5 8410-2 ####JOLENE aCntu (54027)[facility] ([facility])[address] [place] [address] WBC (Bld) [#/Vol] 10.1 x10*3/uL Normal 4.4-11.3 [facility] Comment on above: Performed By: #### 5 8410-2 ####JOLENE Cantu ([id number])[facility] ([facility])[address] [place] [address] CT abdomen pelvis w conon CT abdomen pelvis w con [facility] [place] [address] [place] [address] CT Scan Report Signed Patient: Jerad Tracy MR#: [id number] 49 : 1975 Acct:[id number] Age/Sex: 48 / F ADM Date: 10/05/23 Loc: ER Room: Type: [facility] ER Attending Dr: Copies to: Abby Jensen [...] Dinora Ma M.D.10/05/2023 6:57 PM Dictation Location: [place] [address] Transcribed By: BRYCE 10/05/231856 Dictated By: Dinora Ma II, MD 10/05/231848 Signed By: 10/05/231856 Normal [facility] Calcium [Mass/volume] in Ser um or PlasmaOrdered By: Abby Jensen on 10-05-2023 Calcium [Mass/Vol] 8.8 mg/dL Normal 8.6-10.3 [facility] Comment on above: Performed By: #### U HCG, ADDONUAPLUS #### [facility] [address] [place] [address] Carbon dioxide, total [Moles /volume] in Serum or PlasmaOrdered By: Abby Jensen on 10-05-2023 CO2 [Moles/Vol] 26.0 mmol/L Normal 21.0-31.[address] [facility] Comment on above: Performed By: #### U HCG, ADDONUAPLUS #### [facility] [address] [place] [id number] [place] Chloride [Moles/volume] in S saw or PlasmaOrdered By: Abby Jensen on 10-05-2023 Chloride [Moles/Vol] 105 mmol/L Normal 98-107 [facility] Comment on above: Performed By: #### U HCG, ADDONUAPLUS #### [facility] [address] [place] [id number] [place] Color of Urine by AutoOrdere d By: Abby Jensen on 10-05-2023 Color (U) Light-yellow Normal Yellow [facility] Comment on above: Order Comment: Name Collection Type:: Clean-Voided Midstream Performed By: #### V BG #### Point of Care testing , Complete Blood Count Auto Di ffon 10-05-2023 Mean Corpuscular HGB Conc 33.9 g/dL Normal 32.0-35.0 [facility] Comment on above: Performed By: #### U HCG, ADDONUAPLUS #### [facility] [address] [place] [address] [place] Monocytes/100 WBC (Bld) 16.83 % Normal 0.00-20.00 [facility] Comment on above: Performed By: #### U HCG, ADDONUAPLUS #### [facility] [address] [place] [address] [place] NRBC% 0.1 /100{WBC} Normal 0-0.5 [facility] Comment on above: Performed By: #### U HCG, ADDONUAPLUS #### [place] [address] [place] Creatine kinase [Enzymatic a ctivity/volume] in Serum or PlasmaOrdered By: Abby Jensen on 10-05-2023 CK [Catalytic activity/Vol] 49 U/L Normal 30-223 [facility] Comment on above: Performed By: #### U HCG, ADDONUAPLUS #### [place] [address] [place] Creatinine [Mass/volume] in Serum or PlasmaOrdered By: Abby Jensen on 10-05-2023 Creatinine [Mass/Vol] 0.75 mg/dL Normal 0.60-1.20 [facility] Comment on above: Performed By: #### U HCG, ADDONUAPLUS #### [facility] [address] [place] [address] [place] ECG 12 lead ECGon 10-05-2023 ECG 12 lead ECG [facility] [place] [address] [place] [address] Electrocardiograph Report Signed Patient: Jerad Tracy MR#: [id number] 49 : 1975 Acct:[id number] Age/Sex: 48 / F ADM Date: 10/05/23 Loc: ER Room: Type: [facility] ER Attending Dr: Ordering Provider: Abby [...] No significant change was found Confirmed by bAby Jensen MD ([id number]) on 10/05/2023 10:15:52 PM Referred By: Electronically Signed By: Abby Jensen MD Transcribed By: MUS Signed By Abby Jensen MD 09/22 06/[address] [facility] Physician [facility] ED Clinical Summaryon 2023 ED Clinical Summary [facility] Emergency Department [address] [place], [place] [id number] ED Clinical Summary PERSON INFORMATION Name: JERAD TRACY Age: 48 Years Sex: FEMALE : 1975 MRN: Acct#: Visit Reason: Post surgical problem; SKIN PROBLEM-BACK Arrival: 10/05/2023 11:20:01 Discharge: 10/05/2023 12:04:00 LOS: 000 00:44 Check In: 10/05/2023 11:20:01 Checkout:10/05/2023 12:04:00 Address: [address] [place] [address] PCP: Cheyanne Mckeon PROVIDER INFORMATION Provider Role Assigned Unassigned Susu Lamar PA-C ED PA 10/05/2023 11:21:33 Niki Reyes [employer]ARM[employer]ACHINE Nurse 10/05/2023 11:33:03 VITALS INFORMATION Vital Sign Triage Latest Temperature Tympanic Temperature Temporal Artery Pulse Rate O2 Sat 97 % 97 % Respiratory Rate 16 br/min 16 br/min Blood Pressure /65 mmHg /65 mmHg MEDICAL INFORMATION Medications Given: Allergy Information: HYDROcodone; penicillin PHYSICIAN DOCUMENTATION DISCHARGE INFORMATION: Discharge Disposition: Home Discharge Location: Home PATIENT EDUCATION INFORMATION Instructions: Wound Dehiscence, Pnlv-co-[id number] Follow-Up: With: Address: When: [facility] wound care [address] [place], [place] [id number] Within 3 to 5 days Comments: Call for follow up appointment With: Address: When: Cheyanne Mckeon [address] [facility] [place] [address] [place] [address] Within 3 to 5 days Comments: keep appt with surgeon in 3 days DIAGNOSIS: 1:Dehiscence of incision Patient Understands: Yes - Patient/family/caregive r verbalizes understanding of instructions given Comment: [facility] ED Note-Physicianon 10-05-19 24 ED Note-Physician [facility] Comment on above: Result Comment: Elec tronically Signed By: Landon Tidwell PA-C\.br\Date and Time Signed: 10/04/23 17:18 EDT\.br\Electronically Co-Signed By: Jorge Mcintosh DO\.br\Date and Time Co-Signed: 10/05/23 07:28 EDT ED Patient Summaryon 024 ED Patient Summary [facility] - Emergency Department [address] [place] [address] PATIENT DISCHARGE INSTRUCTIONS Patient Information Name: JERAD TRACY Age: 48 Years Date of : 1975 Reason For Visit: Post surgical problem; SKIN PROBLEM-BACK Arrival Time: 10/05/2023 11:20:01 Primary Care Physician: Cheyanne Mckeon Attending Physician: Raj Ayers MD Comment: Visit Diagnosis: Diagnoses This Visit Dehiscence of incision (T81.31XA) Post surgical problem ([id number]) The Pharmacy at [facility] is open Saturday through Saturday from [...] alcohol and/or drug addiction problems; contact the [facility] 15/10 Crisis Hotline -Text 4HABQ to 887395. If you received any narcotics, sedation, or [...] any legal documents With: Address: When: [facility] wound [facility] [address] [place] [phone] Within 3 to 5 days Comments: Call for follow up appointment With: Address: When: Cheyanne Mckeon [address] [place] [address] [place] [address] Within 3 to 5 days Comments: keep appt with surgeon in 3 days Medication Information: The exam and treatment you received today in the [facility] Emergency Department were for an urgent problem and are not intended as complete care. It is important for you to follow up with a doctor, nurse practitioner, or physician?s dermatology physician assistant for ongoing care. If your symptoms [...] so we can reach you if necessary. [facility] Emergency Department has provided you with a complete list of medications post discharge. Please inform your records assistant/provider of your visit and for further instruction on these medications. Any specific questions regarding your chronic medications and dosages should be discussed with your primary care physician(s) and/or pharmacist. New Medications [facility], [address] [place], [place] [id number], [phone] doxycycline (doxycycline hyclate 100 mg oral capsule) [...] causes? C (more content not included)... Normal [facility] ESR Westergren method (Bld) [Velocity]on 10-05-2023 ESR (Bld) [Velocity] 35 mm/h High 0-20 [facility] Comment on above: Performed By: #### 4 537-7 ####JOLENE Cantu ([id number])[facility] ([facility])[address] [place] [address] Erythrocyte Sedimentation Ra karen 10-05-2023 ESR (Bld) [Velocity] 58 mm/h High 0-19 [facility] Comment on above: Result Comment: PERF ORMED BY: [place] [address] PATHOLOGIST PILLOWCASE CUTTER JASON WILSON M.D. Performed By: #### U HCG, ADDONUAPLUS #### [address] Erythrocyte distribution wid th [Ratio] by Automated countOrdered By: Abby Jensen on 10-05-2023 Erythrocyte distribution width (RBC) [Ratio] 13.2 % Normal 11.9-15.3 [facility] Comment on above: Performed By: #### U HCG, ADDONUAPLUS #### [address] Erythrocyte sedimentation ra te by Photometric methodOrdered By: Abby Jensen on 10-05-2023 ESR Photometric method (Bld) [Velocity] 58 mm/hr High 0-19 [facility] Erythrocytes [#/volume] in B lood by Automated countOrdered By: Abby Jensen on 10-05-2023 RBC (Bld) [#/Vol] 4.32 10*6/uL Normal 3.60-5.[address] [facility] Comment on above: Performed By: #### U HCG, ADDONUAPLUS #### [address] Glucose [Mass/volume] in Ser um or PlasmaOrdered By: Abby Jensen on 10-05-2023 Glucose [Mass/Vol] 95 mg/dL Normal 70-100 [facility] Comment on above: ADA recommended refe rence rangeRandom Glucose Reference Range is dependent on time and content of last meal. Glucose of more than 200 mg/dL in a nonstressed, ambulatory subject supports the diagnosis of Diabetes Mellitus. Result Comment: [place] om Glucose Reference Range is dependent on time and content of last meal. Glucose of more than 200 mg/dL in a nonstressed, ambulatory subject supports the diagnosis of Diabetes Mellitus. ADA recommended reference range Performed By: #### U HCG, ADDONUAPLUS #### [place] [address] [place] Glucose [Mass/volume] in Uri ne by Test stripOrdered By: Abby Jensen on 10-05-2023 Glucose Test strip (U) [Mass/Vol] Normal mg/dL Normal [facility] Hematocrit [Volume Fraction] of Blood by Automated countOrdered By: Abby Jensen on 10-05-2023 Hematocrit (Bld) [Volume fraction] 40.4 % Normal 34.0-46.4 [facility] Comment on above: Performed By: #### U HCG, ADDONUAPLUS #### [address] Hemoglobin Test strip Ql (U) Ordered By: Abby Jensen on 10-05-2023 Hemoglobin Ql (U) Negative Negative [facility] Hemoglobin [Mass/volume] in BloodOrdered By: Abby Jensen on 10-05-2023 Hemoglobin (Bld) [Mass/Vol] 13.7 g/dL Normal 11.8-15.4 [facility] Comment on above: Performed By: #### U HCG, ADDONUAPLUS #### [facility] [address] [place] [address] INR in Platelet poor plasma by Coagulation [...] Performed By: #### U HCG, ADDONUAPLUS #### [facility] [address] [place] [address] Ketones [Presence] in Urine by Test stripOrdered By: Abby Jensen on 10-05-2023 Ketones Ql (U) Negative Normal Negative [facility] Comment on above: Order Comment: Name Collection Type:: Clean-Voided Midstream Performed By: #### V BG #### Point of Care testing , Lactate [Moles/volume] in Se rum or PlasmaOrdered By: Abby Jensen on 10-05-2023 Lactate [Moles/Vol] 0.6 mmol/L Normal 0.5-2.[address] [facility] Comment on above: Result Comment: PERF ORMED BY: [address] [place] [address] PATHOLOGIST [employer]TER JASON WILSON M.D. Performed By: #### U HCG, ADDONUAPLUS #### [facility] [address] [place] [address] Leukocyte esterase [Presence ] in Urine by [...] WBC (Bld) [#/Vol] 12.3 10*3/uL High 3.8-11.[address] [facility] Comment on above: Performed By: #### U HCG, ADDONUAPLUS #### [facility] [address] [place] [address] [place] Lymphocytes [#/volume] in Bl ood by Automated countOrdered By: Abby Jensen on 10-05-2023 Lymphocytes (Bld) [#/Vol] 2.1 10*3/uL Normal 1.00-4.8 [facility] Comment on above: Performed By: #### U HCG, ADDONUAPLUS #### [facility] [address] [place] [address] Lymphocytes/100 leukocytes i n Blood by Automated countOrdered By: Abby Jensen on 10-05-2023 Lymphocytes/100 WBC (Bld) 16.8 % Normal . [facility] Comment on above: Performed By: #### U HCG, ADDONUAPLUS #### [address] [facility] [Entitic mass] by Automa lisa countOrdered By: Abby Jensen on 10-05-2023 MCH (RBC) [Entitic mass] 31.8 pg Normal 24.7-34.3 [facility] Comment on above: Performed By: #### U HCG, ADDONUAPLUS #### [address] MCHC Auto (RBC) [Mass/Vol]Or dered By: Abby Jensen on 10-05-2023 MCHC (RBC) [Mass/Vol] 33.9 g/dL 32.0-35.0 [facility] MCV [Entitic volume] by Auto mated countOrdered By: Abby Jensen on 10-05-2023 MCV (RBC) [Entitic vol] 93.6 fL Normal 80-100 [facility] Comment on above: Performed By: #### U HCG, ADDONUAPLUS #### [facility] [address] [place] [address] [place] Monocyte distribution width [Entitic volume] in Blood by AutomatedOrdered By: Abby Jensen on 10-05-2023 Monocyte distribution width Auto (Bld) [Entitic vol] 16.83 % 0.00-20.00 [facility] Neutrophils [#/volume] in Bl ood by Automated countOrdered By: Abby Jensen on 10-05-2023 Neutrophils (Bld) [#/Vol] 9.3 10*3/uL High 1.8-7.7 [facility] Comment on above: Performed By: #### U HCG, ADDONUAPLUS #### [facility] [address] [id number] [facility] Nitrite Test strip Ql (U)Ord ered By: Abby Jensen on 10-05-2023 Nitrite Ql (U) Negative Negative [facility] No Panel InformationOrdered By: Abby Jensen on [...] Coag (PPP) [Time] 33 s Normal 27-38 [facility] Comment on above: Order Comment: The A PTT is no longer used for monitoring Unfractionated Heparin Therapy. For monitoring Heparin Therapy, use the Heparin Assay. Performed By: #### 3 4529-8 ####JOLENE Cantu ([id number])[facility] ([facility])[id number] [place] [address] INR Coag (PPP) [Relative time] 1.0 Normal 0.9-1.1 [facility] Comment on above: Order Comment: The A PTT is no longer used for monitoring Unfractionated Heparin Therapy. For monitoring Heparin Therapy, use the Heparin Assay. Performed By: #### 3 4529-8 ####JOLENE Cantu ([id number])[facility] ([facility])[address] [place] [address] PT Coag (PPP) [Time] 11.3 s Normal 9.8-12.8 [facility] Comment on above: Order Comment: The A PTT is no longer used for monitoring Unfractionated Heparin Therapy. For monitoring Heparin Therapy, use the Heparin Assay. Performed By: #### 3 4529-8 ####JOLENE Cantu ([id number])[facility] ([facility])[address] [place] [address] Partial Thromboplastin Timeo n 10-05-2023 aPTT Coag (Bld) [Time] 33.6 s Normal 25.1-36.5 [facility] Comment on above: Result Comment: A he matocrit value greater than 55% may lead to inaccurate results in coagulation testing. Patients having hematocrit values >55% require a special collection tube for coagulation studies. Please contact the laboratory at [phone] for redraw instructions. PERFORMED BY: [place] [address] PATHOLOGIST PILLOWCASE CUTTER JASON WILSON M.D. Performed By: #### U HCG, ADDONUAPLUS #### [place] [address] [place] Platelet mean volume [Entiti c volume] in Blood by Automated countOrdered By: Abby Jensen on 10-05-2023 Platelet mean volume (Bld) [Entitic vol] 7.5 fL Normal 6.3-10.7 [facility] Comment on above: Performed By: #### U HCG, ADDONUAPLUS #### [place] [address] [place] Platelets [#/volume] in Bloo d by Automated countOrdered By: Abby Jensen on 10-05-2023 Platelets (Bld) [#/Vol] 464 10*3/uL High 150-450 [facility] Comment on above: Performed By: #### U HCG, ADDONUAPLUS #### [place] [id number] [place] Potassium [Moles/volume] in Serum or PlasmaOrdered By: Abby Jensen on 10-05-2023 Potassium [Moles/Vol] 4.0 mmol/L Normal 3.5-5.1 [facility] Comment on above: Performed By: #### U HCG, ADDONUAPLUS #### [place] [address] [place] Protein Test strip (U) [Mass /Vol]Ordered By: Abby Jensen on 10-05-2023 Protein (U) [Mass/Vol] Negative Negative [facility] Prothrombin time (PT)Ordered By: Abby Jensen on 10-05-2023 PT Coag (PPP) [Time] 12.0 s Normal 9.0-12.9 [facility] Comment on above: A hematocrit value g reater than 55% may lead to inaccurate results in coagulation testing. Patients having hematocrit values >55% require a special collection tube for coagulation studies. Please contact the laboratory at [phone] for redraw instructions. Result Comment: A he matocrit value greater than 55% may lead to inaccurate results in coagulation testing. Patients having hematocrit values >55% require a special collection tube for coagulation studies. Please contact the laboratory at [phone] for redraw instructions. Performed By: #### U HCG, ADDONUAPLUS #### [facility] [address] Renal function 2000 panelon 10-05-2023 Albumin BCP dye [Mass/Vol] 3.9 g/dL Normal 3.4-5.0 [facility] Comment on above: Performed By: #### 2 4362-6 ####JOLENE Cantu ([id number])[facility] ([facility])[address] [place] [address] Anion gap [Moles/Vol] 13 mmol/L Normal 10-20 [facility] Comment on above: Performed By: #### 2 4362-6 ####JOLENE WELSHMOTZSUSAN L ([id number])[facility] ([facility])[address] [place] [address] Calcium [Mass/Vol] 8.6 mg/dL Normal 8.6-10.6 [facility] Comment on above: Performed By: #### 2 4362-6 ####JOLENE SCHMOTZER L ([id number])[facility] ([facility])[address] [place] [address] Chloride [Moles/Vol] 105 mmol/L Normal 98-107 [facility] Comment on above: Performed By: #### 2 4362-6 ####JOLENE WELSHMOTZER L ([id number])[facility] ([facility])[address] [place] [address] CO2 [Moles/Vol] 24 mmol/L Normal 21-32 [facility] Comment on above: Performed By: #### 2 4362-6 ####JOLENE Cantu ([id number])[facility] ([facility])[address] [place] [address] Creatinine [Mass/Vol] 0.68 mg/dL Normal 0.50-1.05 [facility] Comment on above: Performed By: #### 2 4362-6 ####JOLENE Cantu ([id number])[facility] ([facility])[address] [place] [address] GFR/1.73 sq M.predicted MDRD (S/P/Bld) [Vol rate/Area] mL/min/{1.73_m2} Normal >60 [facility] Comment on above: Result Comment: Calc ulations of estimated GFR are performed using the 2020 CKD-EPI Study Refit equation without the race variable for the IDMS-Traceable creatinine methods.https://jasn.asnjournals.org/content//A SN.4995449599 Performed By: #### 2 4362-6 ####JOLENE Cantu ([id number])[facility] ([facility])[address] [place] [address] Glucose [Mass/Vol] 94 mg/dL Normal 74-99 [facility] Comment on above: Performed By: #### 2 4362-6 ####JOLENE Cantu ([id number])[facility] ([facility])[address] [place] [address] Phosphate [Mass/Vol] 2.8 mg/dL Normal 2.5-4.9 [facility] Comment on above: Result Comment: The performance characteristics of phosphorus testing in heparinized plasma have been validated by the individual laboratory site where testing is performed. Testing on heparinized plasma is not approved by the FDA; however, such approval is not necessary. Performed By: #### 2 4362-6 ####JOLENE Cantu ([id number])[facility] ([facility])[address] [place] [address] Potassium [Moles/Vol] 3.9 mmol/L Normal 3.5-5.3 [facility] Comment on above: Performed By: #### 2 4362-6 ####JOLENE Cantu ([id number])[facility] ([facility])[address] [place] [address] Sodium [Moles/Vol] 138 mmol/L Normal 136-145 [facility] Comment on above: Performed By: #### 2 4362-6 ####JOLENE Cantu ([id number])[facility] ([facility])[address] [place] [address] Urea nitrogen [Mass/Vol] 10 mg/dL Normal 6-23 [facility] Comment on above: Performed By: #### 2 4362-6 ####JOLENE Cantu ([id number])[facility] ([facility])[address] [place] [address] Serum or plasma anion gap de terminationOrdered By: Abby Jensen on 10-05-2023 Anion gap [Moles/Vol] 11.0 mmol/L Normal 6.0-15.0 [facility] Comment on above: Performed By: #### U HCG, TONYONKARENPLUS #### [facility] [address] [place] [address] [place] Sodium [Moles/volume] in Ser um or PlasmaOrdered By: Abby Jensen on 10-05-2023 Sodium [Moles/Vol] 138 mmol/L Normal 136-145 [facility] Comment on above: Performed By: #### U HCG, ADDONUAPLUS #### [facility] [address] 2[address] [place] Specific gravity Test strip (U) [Rel density]Ordered By: Abby Jensen on 10-05-2023 Specific gravity (U) [Rel density] 1.018 1.001-1.030 [facility] Troponin I High Sensitivityo n 10-05-2023 Troponin I High Sensitivity 2.6 pg/mL Normal 0.0-15.0 [facility] Comment on above: Result Comment: PERF ORMED BY: [place] [address] PATHOLOGIST PILLOWCASE CUTTER JASON WILSON M.D. Performed By: #### U HCG, ADDONUAPLUS #### [facility] [address] [place] [address] Troponin I.cardiac [Mass/vol ume] in Serum or Plasma by Detection limit <= 0.01 ng/Ordered By: Abby Jensen on 10-05-2023 Troponin I.cardiac DL <= 0.01 ng/mL [Mass/Vol] 2.6 pg/mL 0.0-15.0 [facility] Urea nitrogen [Mass/volume] in Serum or PlasmaOrdered By: Abby Jensen on 10-05-2023 Urea nitrogen [Mass/Vol] 12 mg/dL Normal 7-25 [facility] Comment on above: Performed By: #### U HCG, ADDONUAPLUS #### [facility] [address] [place] [address] Urinalysison 10-05-2023 Bilirubin,Urine Negative Normal Negative [facility] Comment on above: Order Comment: Name Collection Type:: Clean-Voided Midstream Performed By: #### V BG #### Point of Care testing , Glucose Ql (U) Normal Normal Normal [facility] Comment on above: Order Comment: Name Collection Type:: Clean-Voided Midstream Performed By: #### V BG #### Point of Care testing , Nitrite,Urine Negative Normal Negative [facility] Comment on above: Order Comment: Name Collection Type:: Clean-Voided Midstream Performed By: #### V BG #### Point of Care testing , Occult Blood,Urine Negative Normal Negative [facility] Comment on above: Order Comment: Name Collection Type:: Clean-Voided Midstream Result Comment: PERF ORMED BY: [place] [address] PATHOLOGIST PILLOWCASE CUTTER JASON WILSON M.D. Performed By: #### V BG #### Point of Care testing , Protein,Urine Negative Normal Negative [facility] Comment on above: Order Comment: Name Collection Type:: Clean-Voided Midstream Performed By: #### V BG #### Point of Care testing , Specificy Jamul,Urine 1.018 Normal 1.001-1.030 [facility] Comment on above: Order Comment: Name Collection Type:: Clean-Voided Midstream Performed By: #### V BG #### Point of Care testing , Urobilinogen,Urine Normal Normal Normal [facility] Comment on above: Order Comment: Name Collection Type:: Clean-Voided Midstream Performed By: #### V BG #### Point of Care testing , Urine Cultureon 10-05-2023 Bacteria identified Cx Nom (U) >100,000 colonies/ml mixed bacterial skin contaminants 2 Days PERFORMED BY: [place] [address] PATHOLOGIST PILLOWCASE CUTTER JASON WILSON M.D. Normal [facility] Comment on above: [...] XR chest 2V*on 10-05-2023 XR chest 2V* [facility] [place] [address] XRay Report Signed Patient: Jerad Tracy MR#: [id number] 49 : 1975 Acct:[id number] Age/Sex: 48 / F ADM Date: 10/05/23 Loc: ER Room: Type: [facility] ER Attending Dr: Copies to: Abby Jensen [...] Dinora Ma M.D.10/05/2023 6:49 PM Dictation Location: [place] [address] Transcribed By: [facility] 10/05/231848 Dictated By: Dinora Ma II, MD 10/05/231847 Signed By: 10/05/231848 Normal [facility] pH of Urine by Test stripOrd ered By: Abby Jensen on 10-05-2023 pH (U) 7.5 [pH] Normal 5.0-9.0 [facility] Comment on above: Order Comment: Name Collection Type:: Clean-Voided Midstream Performed By: #### V BG #### Point of Care testing , ED Clinical Summaryon 2023 ED Clinical Summary Normal [facility] ED Patient Education Noteon 10-04-2023 ED Patient Education Note Normal [facility] ED Patient Summaryon 024 ED Patient Summary Normal [facility] ED Clinical Summaryon 2023 ED Clinical Summary [facility] Emergency Department [address] [place] [address] ED Clinical Summary PERSON INFORMATION Name: JERAD TRACY Age: 48 Years Sex: FEMALE : 1975 MRN: Acct#: Visit Reason: Surgical problem reevaluation; SKIN PROBLEM-BACK Arrival: 09/26/2023 11:09:47 Discharge: 09/26/2023 12:04:00 LOS: 000 00:55 Check In: 09/26/2023 11:09:47 Checkout:09/26/2023 12:04:00 Address: [address] [facility] [address] PCP: Cheyanne Mckeon PROVIDER INFORMATION Provider Role [...] PATIENT EDUCATION INFORMATION Instructions: Pain Medicine Instructions, Xkqb-fr-[id number]; Wound Infection, Ukcm-uw-Ahnl; Acute Pain, Adult Follow-Up: With: Address: When: [...] concerns you. With: Address: When: Cheyanne Rosas [address] [facility], [address] [place] [id number] [facility] (1) Within 3 to 5 days DIAGNOSIS: Acute post-operative pain; Infected surgical wound Patient Understands: Yes - Patient/family/caregive r verbalizes understanding of instructions given Comment: [facility] ED Note - Physicianon 2023 [...] a electro stimulator placed. 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 . History of Present Illness The patient presents with wound infection. The onset was 2 days ago. 48-year-old female presented to ER for evaluation of pain at the lower back area. Patient stated that she had a stimulator placed on Saturday. Stated that it was done at [facility]. Stated that she had been prescribed Percocet [...] been prescribed Bactrim and Keflex at the [facility] in [facility]. Apparently was called in yesterday. She [...] mg, Or (more content not included)... Normal [facility] ED Patient Summaryon 024 ED Patient Summary [facility] - Emergency Department [address] [place] [address] PATIENT DISCHARGE INSTRUCTIONS Patient Information Name: JERAD TRACY Age: 48 Years Date of : 1975 Reason For Visit: Surgical problem reevaluation; SKIN PROBLEM-BACK Arrival Time: 09/26/2023 11:09:47 Primary Care Physician: Cheyanne Mckeon Attending Physician: Daryl Cullen MD Comment: Visit Diagnosis: Diagnoses This Visit Acute post-operative pain (G89.18) Infected surgical wound (T81.49XA) Surgical problem reevaluation ([id number]) The Pharmacy at [facility] is open Saturday through Saturday from [...] alcohol and/or drug addiction problems; contact the [facility] 15/10 Crisis Hotline -Text 9PQCR wd [phone]. If you received any narcotics, sedation, or [...] concerns you. With: Address: When: Cheyanne Rosas [address], [place] [address] Business (1) Within 3 to 5 days Medication Information: The exam and treatment you received today in the [facility] Emergency Department were for an urgent problem and are not intended as complete care. It is important for you to follow up with a doctor, nurse practitioner, or physician?s dermatology physician assistant for ongoing care. If your symptoms [...] so we can reach you if necessary. [facility] Emergency Department has provided you with a complete list of medications post discharge. Please inform your records assistant/provider of your visit and for further instruction on these medications. Any specific questions regarding your chronic medications and dosages should be discussed with your primary care physician(s) and/or pharmacist. New Medications [facility], [address], [place] [id number], [phone] acetaminophen-oxycodone (acetaminophen-oxycodon e 325 mg-5 mg oral [...] Weight Dosin.40 (more content not included)... Normal [facility] CT Spine Lumbar w/o Contrast on 09-25-2023 CT Spine Lumbar w/o Contrast Normal [facility] ED Clinical Summaryon 2023 ED Clinical Summary Normal [facility] ED Note-Physicianon 09-25-19 ED Note-Physician Normal [facility] Comment on above: Result Comment: Elec tronically Signed By: Landon Tidwell PA-C\.br\Date and Time Signed: 09/25/23 15:17 EDT\.br\Electronically Co-Signed By: Balbina Bryant M.D.\.br\Date and Time Co-Signed: 09/25/23 15:18 EDT ED Patient Education Noteon 09-25-2023 ED Patient Education Note Normal [facility] ED Patient Summaryon 024 ED Patient Summary Normal [facility] FL FLUORO IMAGES NO CHARGEon 09-23-2023 FL FLUORO IMAGES NO CHARGE These images are not reportable by radiology and will not be interpreted by Radiologists. Normal [facility] ED Clinical Summaryon 2023 ED Clinical Summary Normal [facility] ED Note-Physicianon 09-21-19 ED Note-Physician Normal [facility] Comment on above: Result Comment: Elec tronically Signed By: Kristie Boss PA-C.br\Date and Time Signed: 09/21/23 15:14 EDT\.br\Electronically Co-Signed By: Nikhil Tubbs DO\.br\Date and Time Co-Signed: 09/21/23 15:21 EDT ED Patient Education Noteon 09-21-2023 ED Patient Education Note Normal [facility] ED Patient Summaryon 024 ED Patient Summary Normal [facility] ED Clinical Summaryon 2023 ED Clinical Summary Normal [facility] ED Note-Physicianon 09-20-19 ED Note-Physician Normal [facility] Comment on above: Result Comment: Elec tronically Signed By: Robert Taylor PA-C\.br\Date and Time Signed: 09/20/23 11:16 EDT\.br\Electronically Co-Signed By: Jorge Mcintosh DO\.br\Date and Time Co-Signed: 09/20/23 18:45 EDT ED Patient Education Noteon 09-20-2023 ED Patient Education Note Normal [facility] ED Patient Summaryon 024 ED Patient Summary Normal [facility] XR SACRUM COCCYX 2+ VIEWSon 09-19-2023 XR SACRUM COCCYX 2+ VIEWS Interpreted By: Susie Brennan, STUDY: XR SACRUM COCCYX 2+ VIEWS; 09/19/2023 1:13 pm INDICATION: Signs/Symptoms:fall. COMPARISON: None. ACCESSION NUMBER(S): [id number] ORDERING CLINICIAN: GERMAINE DIAZ FINDINGS: Three views [...] Susie Brennan 09/19/2023 1:41 PM Dictation workstation: [id number] [facility] Family Medicine Office/Clini c Noteon 09-17-2023 Family Medicine Office/Clinic Note Normal [facility] Comment on above: Result Comment: Elec tronically Signed By: Dax Lira PA-C\.br\Date and Time Signed: 09/17/23 18:07 EDT Patient Educationon 09-17-19 Patient Education Normal [facility] HCV RNA panel LINDSEY+probeon HCV RNA LINDSEY+probe [Log units/Vol] Normal [facility] Comment on above: Order Comment: Repor table Range: 15-100,000,000 IU/mL.The javier HCV is an in vitro nucleic acid amplification test for both the detection and quantitation of hepatitis C virus (HCV) RNA, in human EDTA plasma or serum, of HCV antibody positive or HCV-infected individuals on the javier Monitor My Meds0/8800 Systems. Dual probes are used to detect [...] Diagnostic Laboratory, Department of Pathology, [facility]. Result Comment: Not calculated Performed By: #### 5 0023-1 ####JOLENE Cantu ([id number])[facility] ([facility])[address] [place], [place] [address] HCV RNA LINDSEY+probe Qn Not detected Normal Not detected [facility] Comment on above: Order Comment: Repor table Range: 15-100,000,000 IU/mL.The javier HCV is an in vitro nucleic acid amplification test for both the detection and quantitation of hepatitis C virus (HCV) RNA, in human EDTA plasma or serum, of HCV antibody positive or HCV-infected individuals on the javier Monitor My Meds0/8800 Systems. Dual probes are used to detect [...] Diagnostic Laboratory, Department of Pathology, [facility]. Performed By: #### 5 0023-1 ####JOLENE Cantu ([id number])[facility] ([facility])[address] [place] [address] Hepatic function 2000 panelo n 09-16-2023 Albumin BCP dye [Mass/Vol] 4.1 g/dL Normal 3.4-5.0 [facility] Comment on above: Performed By: #### 2 4324-3 ####GIOVANNI BURNETT ([id number])[facility] ([facility])[address] [place] [address] ALP [Catalytic activity/Vol] 96 U/L Normal 33-110 [facility] Comment on above: Performed By: #### 2 4324-3 ####GIOVANNI BURNETT ([id number])[facility] ([facility])[address] [place] [address] ALT With P-5'-P [Catalytic activity/Vol] 21 U/L Normal 7-45 [facility] Comment on above: Result Comment: Katia ents treated with Sulfasalazine may generate falsely decreased results for ALT. Performed By: #### 2 4324-3 ####GIOVANNI BURNETT ([id number])[facility] ([facility])[address] [place] [address] AST With P-5'-P [Catalytic activity/Vol] 17 U/L Normal 9-39 [facility] Comment on above: Performed By: #### 2 4324-3 ####GIOVANNI BURNETT ([id number])[facility] ([facility])[address] [place] [address] Bilirubin [Mass/Vol] 0.2 mg/dL Normal 0.0-1.2 [facility] Comment on above: Performed By: #### 2 4324-3 ####GIOVANNI BURNETT ([id number])[facility] ([facility])[address] [place] [address] Bilirubin.direct [Mass/Vol] 0.1 mg/dL Normal 0.0-0.3 [facility] Comment on above: Performed By: #### 2 4324-3 ####GIOVANNI BURNETT ([id number])[facility] ([facility])[address] [place] [address] Protein [Mass/Vol] 6.7 g/dL Normal 6.4-8.2 [facility] Comment on above: Performed By: #### 2 4324-3 ####DAVILA LEX ([id number])[facility] ([facility])[address] [place] [address] XR ELBOW RIGHT 3+ VIEWSon XR ELBOW RIGHT 3+ VIEWS STUDY: Elbow Radiographs; 09/16/2023 4:48 PM INDICATION: Injury to the right elbow. COMPARISON: None Available. ACCESSION NUMBER(S): [id number] ORDERING CLINICIAN: GERMAINE BLAIR TECHNIQUE: Five view(s) of the right elbow. FINDINGS: There is no displaced fracture. The alignment is anatomic. No soft tissue abnormality is seen. There is no joint effusion. IMPRESSION: No acute bony abnormalities. Signed by Johan Connor MD [facility] Coding Summary.on 09-12-2023 Coding Summary. Normal [facility] Provider Letteron 09-12-2023 Provider Letter Normal [facility] Discharge Instructionson Discharge Instructions [id number]#1.00T IFF Normal [facility] MRI Spine Lumbar w/o Contras ton 09-10-2023 MRI Spine Lumbar w/o Contrast Normal [facility] RAD - Preliminary Cat Scan R eporton 09-10-2023 RAD - Preliminary Cat Scan Report [id number]#1.00T IFF Normal [facility] Consent for Treatmenton 08-23 Consent for Treatment [id number]#1.00T IFF Normal [facility] ED Clinical Summaryon 2023 ED Clinical Summary [facility]on 09-[facility]-19 ED Note-Physician Normal [facility] Comment on above: Result Comment: Elec tronically Signed By: Landon Tidwell PA-C.br\Date and Time Signed: 09/09/23 23:52 EDT\.br\Electronically Co-Signed By: Elisa Sánchez DO.rufino\Date and Time Co-Signed: 09/09/23 23:54 EDT ED Patient Education Noteon 09-09-2023 ED Patient Education Note Normal [facility] ED Patient Summaryon ED Patient Summary Normal [facility] RAD - MRI Screening Formon 0 09-09-2023 RAD - MRI Screening Form [id number]#1.00 TIFF Normal [facility] ED Clinical Summaryon 2023 ED Clinical Summary Normal [facility] ED Note-Physicianon 09-07-19 ED Note-Physician Normal [facility] Comment on above: Result Comment: Elec tronically Signed By: Zhane Castro PA-C\.br\Date and Time Signed: 09/07/23 00:11 EDT\.br\Electronically Co-Signed By: Pedro Pablo Fletcher DO\.br\Date and Time Co-Signed: 09/07/23 01:06 EDT ED Patient Education Noteon 09-07-2023 ED Patient Education Note Normal [facility] ED Patient Summaryon 024 ED Patient Summary Normal [facility] Consent for Treatmenton 08-23 Consent for Treatment [id number]#1.00T IFF Normal [facility] Consent for Treatmenton 08-23 Consent for Treatment [id number]#1.00T IFF Normal [facility] Discharge Instructionson Discharge Instructions [id number]#1.00 TIFF Normal [facility] ED Clinical Summaryon 2023 ED Clinical Summary Normal [facility] ED Note-Physicianon 09-02-19 ED Note-Physician Normal [facility] Comment on above: Result Comment: Elec tronically Signed By: Jorge Mcintosh DO\.br\Date and Time Signed: 09/02/23 18:33 EDT ED Patient Education Noteon 09-02-2023 ED Patient Education Note Normal [facility] ED Patient Summaryon 024 ED Patient Summary Normal [facility] Progress Note-Nurseon 2023 Progress Note-Nurse left with ridjazmine Sanchez [facility] Consent for Treatmenton Consent for Treatment [id number]#1.00T IFF Normal [facility] Discharge Instructionson Discharge Instructions [id number]#1.00 TIFF Normal [facility] ED Clinical Summaryon 2023 ED Clinical Summary Normal [facility] ED Note-Nursingon 08-30-2023 ED Note-Nursing pt states she is mitra ng driven home by her who is at bedside [facility] ED Note-Physicianon 08-30-19 ED Note-Physician Normal [facility] Comment on above: Result Comment: Elec tronically Signed By: Pati MILES, April Palencia\.br\Date and Time Signed: 08/30/23 19:02 EDT\.br\Electronically Co-Signed By: Nikhil Tubbs DO\.br\Date and Time Co-Signed: 08/30/23 19:48 EDT ED Patient Education Noteon 08-30-2023 ED Patient Education Note Normal [facility] ED Patient Summaryon ED Patient Summary Normal [facility] Coding Summaryon 08-27-2023 Coding Summary HTMLBase 64 TzsqwryaJOc6uJv+PGhlYWQ +KH5IONGxL55cyFUkcR8sL7 NMTElOSywgQVBQTElOSyIgb gSgPA5hhNJxWLEa IC8+PI9eEBDpXdjcaFDmk1M 0hNJ8I88ijc3oWNfctYC0AO DoGxZgjpxoh8dfyPh2UDyrD mluOyBt UHSndH15GGS6bG89Nt40uYZ fiJHeg8ebjFl9RjJnHRZhTS P8vUqxKXhxj8CiCMKrN76vb WYzr5H5 EZQdnDxjuSOvNuFnpEP6rX4 kJIbdgdoyz0wxbvykTyu2lw 58iJLyy0P3cMQ9K7WguuY9C GJvbGQg WechyNOEaT0iheulv0wgvdr pUfXfNZEvMZb2SFu5TUPvrR blEoEqQT03MNR4NWWueaQwI 2FsLWFs qKfaRwR2q7D9Uz3OG5QLHjs sK1MTCJIZADfwkHH+PC90cj 96V6AnPzvmRud5OSQfCVF8j GT4iJ1h WHMiJMdzs1Z5pJK2B7RffeF msj5he5ctYAUeYZjsU47qmT Spj6X7JFYdlUK4TJHabVgpT iBzaG93 Oyc+LUGtiHgfu5LrYkdnd5i fy1ngyAw1WiukBVAlxaYysF scWIP9l2NuJh5kCTOcwQI1v VA4kS9b PyQmSmP5APdxQ318MpHqhQD sFcbeJ27tB4JqhPG+PHRyPj z3RQTnsHhfNC6uI6EjVAYof mctbGVm lOhfXL4wCQXlfgokCZRmmZ9 zCKZgE4k8CyFgMlL0ZRrwI9 QxUADsqoytMs54gN7cMvGxL kV5WHlk Q3EytaA0QORsdRIsFVniIUC 0L20rh7W9HBKnTBQsIYF5sA D2nU3owHkrzkztdGAqdJlzk mVydGlj WBctVLdfG880JOIxgJfgRvZ vZGluZyBEYXRlOiAgMDYvMD QvMjAyNDwvdGQ+FNSrGVK4m WxlPSAn vGXzYHzdYo4ihPontXmzQI5 mCFAivjmaNXCckG9ePLUvzD GpvZmuXH0gGTQmhsfip421K iAxMHB0 MJFcyKDxZ3WlgB0sFaTkMCC sSVRkK1MkaYQiIKthG074LO mwAlV1GZXsjyThZ6AwFXYij WduOiB0 p2N8Xu0Uc9DzzqnsT3YgqMG bRnAdWppuSXy9M2CcWanrrF I+VP30HPRfMK16OEf5QFP3y WxlPSdi TGQtA5IhnI1cUeMzBPQnXXR kOyc+PHRhYmxlIHdpZHRoPS ffOOWkXtHzqHadXL6gMk8mC GVyLWNv pMbuuPVgSeIvw9zvFWBnCEj gUB3geHcbQ5ArqNK9YGCmd8 b2Ny28D57uA3HdoCS+PGNvb PP2vDP8 aA9aNwTkNsT7LFanN401QjJ toTXuDjbvf0fqu2lbpJk1Ql V3YWCnkpOdgPwiKBY6w4EoC j43H94k IHdpZHRoPSIxNSUiIHZhbGl byq6mbU3yJt9+IFKrqEU1oQ E0eS1yGaDeShT3RCqyN529D nRvcCIv Etrkq8yde6tsjHj3FsDrLTN uwyFyyXrjJST5e9BgSc89G4 WyjXyue6PwPxj8jl51eKQab 7Z7oFG0 Q2JyTMEacqvpsMTzrUdhHP9 uVXRdvdraPGOekE1vCYMbR9 s1QoBpGeO9ZNbdT3WnxdX0U GJvbGQg IREfhKNJwR5bclokx4vzzkb mGhXuVSTbWDw8JYm5KBTjdY fhFjZaYAX0JyU3ZYC4fSOxa E8zeWey odxgnG4yKvl+WOX7lOFhpLZ RMD1uZgbyxAU+XLPiBAY5gS niXUxjXCNmtN0tAECvN5s8Y iAwLjA1 CYlpL6YtpmM5EVHzpILeALW ghLORvE0octkua9altgidAj HoSPJnFVi2FHk5BTGbwAxiC iBsZWZ0 XtU6XXI3bNTqcM7szOmlxch maE6eJck+WwkimOzkBXS9TV m4K4WbJib1IFIcaBugHX7dm GFkZGlu Dk1dyEhcsLmbCM5xZBEtyll bq598YyUzl2npCDGyiTJeXD zeQDR2P90bp2C2WJHaYWJxD SE5dNO7 bP6fbQudopnntLZwvSitfpD cuFnjTRftVVsrV276JQHnrW vsJuBgZKa2S9UkEjy3FDBxr NywEA0t qZOtGFyoIz4hrHezrJilHI1 nMCIlpzbyk083IyQek8hjWT HufMOqOXmtHUA7C28qe4H2E CMwMDAw NCM5yRA3cJ6dyGryhoqugFT mdDsgdmVydGljYWwtYWxpZ2 74TKZxaQjkMwVrzMr4N9TeO iy3WCZj pAqxER0yySUcCQpkDf4nxDn cjMyeEI6yVRTscyskl666Vv Ini1mdPPUecIPnTGvgRVZ0Q 85tz4P0 PKSsXYSoMIA7bAO6nS3plRr nbjogbGVmdDsgdmVydGljYW bnZBwrJ906NNJhaAgpWxNwm GllbnQg KImhFZl9R9XjUmibxAO+PC9 5NDQvTH16xEFgbKCff7xeaF b5EsRlDCViFZL5vIoqDQbgr 3JkZXIt G13giUEty7P5ETWbmScwoZU tHhOyrTA5jV7zVRgbjetsb1 apyuceCibgy5mnqf29eT62M 29sIHdp ZHRoPSIzMCUiIHZhbGlnbj0 seI4gIj3+VBMwlFX9gUM1iN 5tXRYaTkQ7QNayE055ZyRsf CIvPjxj o0wnj8gabCk0FaK6FFSywoF pqFgdRBY9j4TlGz26Q18gYA dpZHRoPSIyMCUiIHZhbGlnb f7yfH6n Ii8+YQSbsDG3zFV0gS0oTiM sUtZ4KQleP884ZzHfbVExDt srD29vI9FgiDJ+LFBlZic5I CBzdHls ST7jzIVfNPclXj7rKAX1PjA cKmBqRXtaD3MvTWMcaqqnvq aghNP6ZQUcKEGedG07Pw9ll DogMTBw jXDAvV4lfyvzy5qwpexnGuN pBOInXIm2HAg4VVLsvMiiKj IdNGA4SnM8HLS5aCLdgC4pu Glnbjog aL0jY2PoLZHcyqtlDh88bF2 zPlKcZyI0AAgkLau+TElFQi heMTEYPZWDYRRITcwHLzW6I 9OwMdl5 EOBdmWanTY7uyXChIJjyOl6 omDvxmGxqFL1bRUJtkhzsOO JqxJ5jFCAvwGGldKiaAG8mI TBpbjtm i022MqWcUXN7CVHxaYVrM4K ppG9hWkDgXZKiKHHaJ4OohM FnDVrbK650QLknZwK3IKRzz dTrL0Cu KXBfoTprZrS9g9Z3Ef8fEt2 eON8vIPz4QE35UL67kUDlt7 F8kCM5N2SoTFBpyptfndhno UO3IVGv PIQllK89dZNjJGbsKi6jg3U 8l421YTHhJMZgeK91Tm2wiZ teTGOipFBLbM3toooan4gcw jogIzAw KIPwBFr6LIl0BFIaaCxnBwO oEVW6BtF2IXH4vAOpwP6wmB bvmdzerH7dSad+NDYgWWVhc vV4A9Ws Rvg1ZNJvoLovGF4vuDUtNJs kWs4ygFonoVvrPP6xWZBwmt ddWBPkvQ8dLEKvjZObtGaeI K2dDEJp sdblk198VnUiBLV3WVJxcND oG5ThuC3yLvMuUZNfKOPsN0 VmcWGeUCzgM710RKcaXuL2A HZlcnRp D9JjCKNmgTtcFwX6w0H2Dz0 NCV8TNMN8X7IgVab6YWSweC faFM5jvMXhHNpqEm0teEtig FdzMN9a ITRjyhcxPNBwfG2yDHWmfTF atLzpSM1mNVElieezv368Gd ZoSHS9BVOekADiY0LyeR6lQ iAjMDAw KHKqW3YinXJlCWyeT776UHc zBvG5YWWxedLgK4XwICRrkN bsGmZ3w3Q8Fo0XmTIyX7UeS 5y1J9Xa PjwvdHI+QI62QFAjPI52pRR kvLMll9ihcHr9JwAcBTXkHL S8rAjpPGzhc6YrPUInK42co EXfr3B3 VBXneDhvwXGmXhOikBK5jF4 nPPrregbxw0fozescKgtia8 mnna73eO58N74wBHuwXPMsL SIzMCUi XZUpkNnqez4ubT0iWh5+PGN ldEN0mEU2gS4hLwEsLyZ5LJ kzY789HeWkvZYdVulbu8lqh 9cpeIo0 KsNkTLJtgsHyuFcwETG4x9U uQt80L10tOGprOKMdXQUiDU AnELQrsHujge3bwZ9sSk3+P A4gq4gy pk92mL24jAZ+HSXuUYY8rHx vCCwoVNJibE6aINgcVdJ2UM JsNgHvaD59hITbUDxxUm1gy WdodDog CW7mQDQfsueqx612WjCni5k fQKOvvDHvIPqxBKE3D61rq3 G1QJWmFKZmGSE2nTT1kU6kc Glnbjog bGVmdDsgdmVydGljYWwtYWx yB973FCKbrCeyBeRkaAFsD8 yhxdBPXT8rOqedcNG+PHRkI QX6kGkv IGgmWTFxvZ0qZZEgY6p6LgS wQwP0JEvuP4AdhwL2QXHopU RnBOLnjZXHdP6hfbheh6ved jogIzAw DPFeBVy7SAf2GXGfgOnqZjY dWDU6KaP6AYW6bQSgmR7kwL xsuxfihX1rQya+RklOOjwvd GQ+PHRk YDK3zKiaMXagAHLalG1qDDN mI0m1SxBoIrX4TJclB2Yujq E3FGBmjGVpOTRnwURMxC3uh tgiv5sx jlfeMhHnZAOsRZr9OQe8PDB unOskVxCoTYM1PnP0QQO9mJ DffC0urOnkasgfoH3uXbq+T VJOOjwv dGQ+PAOvZXK5kIchBTttBBY mjH7oSYNdS9n1XoPjIdM7OF txT8DsrvV8UPOooHQxYZZtr KYZjW2b fxvjr9nkpxriRaVhQRYzIPx 1QHo8AKGpqTuvGpVsJOI8Td R6BZF1yOTijJ9lmWkvwskit G9wOyc+ ZZE5WTZ9UI56OC56G0BeYue vdGFibGU+PHRhYmxlIHdpZH JqAXzqMDIlGxBcnIznYL6bU i9cREGz LWN (more content not included)... [facility] FL FLUORO IMAGES NO CHARGEon 08-21-2023 FL FLUORO IMAGES NO CHARGE These images are not reportable by radiology and will not be interpreted by Radiologists. [facility] VERAB/VERIFY ABORHon 024 ABO group Nom (Bld) O [facility] Comment on above: Performed By: #### V ERAB ####JLOENE Cantu ([id number])[facility] ([facility])[address] [place] [address] D Ag Ql (Bld) Positive Normal [facility] Comment on above: Performed By: #### V ERAB ####JOLENE Cantu ([id number])[facility] ([facility])[address] [place] [address] Verify ABO/Rh Group Test (VE RAB)on 08-21-2023 ABO group Nom (Bld) O [facility] D Ag Ql (Bld) Positive [facility] XR tomography Unspecified diana dy regionon 08-21-2023 These images are not reportable by radiology and will not be interpreted by Radiologists. IMAGING ED Clinical Summaryon 2023 ED Clinical Summary [facility] Emergency Department [address] [place] [address] ED Clinical Summary PERSON INFORMATION Name: JERAD TRACY Age: 48 Years Sex: FEMALE : 1975 MRN: Acct#: Visit Reason: Back pain; FELL , LOWER BACK PAIN Arrival: 08/17/2023 15:31:41 Discharge: 08/17/2023 17:29:00 LOS: 000 01:58 Check In: 08/17/2023 15:31:41 Checkout:08/17/2023 17:29:00 Address: [address] [place] [id number] PCP: Cheyanne Mckeon PROVIDER INFORMATION Provider Role Assigned Unassigned Peter Chavez DO ED Provider 08/17/2023 16:07:25 Gayla Miranda [employer]ACH[employer] Nurse 08/17/2023 16:08:50 VITALS INFORMATION Vital Sign [...] area. Patient supposed to have surgery at [facility] next month. Patient tripped over a [...] paraspinal musculat (more content not included)... Normal [facility] ED Note - Physicianon 2023 [...] area. Patient supposed to have surgery at [facility] next month. Patient tripped over a [...] for close (more content not included)... Normal [facility] ED Patient Summaryon 024 ED Patient Summary [facility] - Emergency Department [address] [place] [address] PATIENT DISCHARGE INSTRUCTIONS Patient Information Name: JERAD TRACY Age: 48 Years Date of : 1975 Reason For Visit: Back pain; FELL , LOWER BACK PAIN Arrival Time: 08/17/2023 15:31:41 Primary Care Physician: Cheyanne Mckeon Attending Physician: Peter Chavez DO Comment: Visit Diagnosis: Diagnoses This Visit Acute lumbosacral myofascial strain (S39.012A) Back pain ([id number]) The Pharmacy at [facility] is open Saturday through Saturday from [...] alcohol and/or drug addiction problems; contact the [facility] 15/10 Crisis Hotline -Text 7FVEH eh [phone]. If you received any narcotics, sedation, or [...] and treatment you received today in the [facility] Emergency Department were for an urgent problem and are not intended as complete care. It is important for you to follow up with a doctor, nurse practitioner, or physician?s dermatology physician assistant for ongoing care. If your symptoms [...] so we can reach you if necessary. [facility] Emergency Department has provided you with a complete list of medications post discharge. Please inform your records assistant/provider of your visit and for further instruction [...] a treatme (more content not included)... Normal [facility] XR Spine Lumbosacral 2 or [...] MD 08/17/23 5:42 pm Technologist: Wendy TRAN [facility] CT Head or Brain w/o Contras ton 08-16-2023 CT Head or Brain w/o Contrast Normal [facility] CT Spine Cervical w/o Contra ston 08-16-2023 CT Spine Cervical w/o Contrast Normal [facility] Discharge Instructionson Discharge Instructions [id number]#1.0 0TIFF Normal [facility] ED Clinical Summaryon 2023 ED Clinical Summary (Inserted Image. Darlene ble to display) [place] [id number] ED Clinical Summary Person Information Name: Jerad Tracy [place] Age: 48 Years : 1975 Sex: Female PCP: Unavailable, Physician Marital Status: Phone: Race: White Ethnicity: Not or Language: Citizen Of [place] Visit Reason: Back pain; back pain Acuity: 4 Enc Type: Emergency Med Service: Emergency Medicine Arrival: 08/16/2023 15:20:16 Discharge: 08/16/2023 16:38:00 LOS: 000 01:18 Checkin: 08/16/2023 15:20:16 Checkout: 08/16/2023 16:38:00 Dispo Type: Home or Self Care Address: [address] [place] [id number] Provider Notes: Diagnosis: 1:Chronic back pain Problems [...] Caring for Your Back Throughout the Day [facility] Poison Help line: . [facility] Hotline: [place] Tobacco Quit Line: [place], [place]) [address]: [phone] [place], [place]) [address]: [phone] [facility] [address] [place], [place]: [phone] [facility] ED Clinical Summary Normal [facility] ED Note-Physicianon 08-16-19 ED Note-Physician Chief Complaint Patient was traveling in the car from [place] and has started having lower back spasms. [...] more ciga (more content not included)... Normal [facility] ED Note-Physician Normal [facility] Comment on above: Result Comment: Elec tronically Signed By: Balbina Bryant M.D.\.rufino\Date and Time Signed: 08/16/23 03:58 EDT ED Patient Education Noteon 08-16-2023 ED Patient Education Note Normal [facility] ED Patient Summaryon 024 ED Patient Summary Normal [facility] RAD - Preliminary Cat Scan R eporton 08-16-2023 RAD - Preliminary Cat Scan Report [id number]#1.0 0TIFF Normal [facility] RAD - Preliminary Cat Scan Report [id number]#1.0 0TIFF Normal [facility] Workers [employer]son 024 Workers Comp Forms [id number]#1.0 0TIFF Normal [facility] XR Spine Lumbosacral 2 or 3 Viewson 08-16-2023 XR Spine Lumbosacral 2 or 3 Views Normal [facility] XR Spine Thoracic 3 Viewson 08-16-2023 XR Spine Thoracic 3 Views Normal [facility] Consent for Treatmenton 07-24 Consent for Treatment [id number]#1.00T IFF Normal [facility] Consent for Treatmenton 07-24 Consent for Treatment [id number]#1.00 TIFF Normal [facility] Consultation Noteon 08-14-19 Consultation Note Normal [facility] Comment on above: Result Comment: Elec tronically Signed By: Domenic Sher DO.br\Date and Time Signed: 08/14/23 16:33 EDT Office/Clinic Note-Physician on 08-14-2023 Office/Clinic Note-Physician [id number]#1.00 TIFF Normal [facility] Patient Correspondenceon Patient Correspondence [id number]#1.00 TIFF Normal [facility] Patient Correspondence [id number]#1.00 TIFF Normal [facility] Patient History Officeon Patient History Office [id number]#1.00 TIFF Normal [facility] Consent for Treatmenton 07-24 Consent for Treatment [id number]#1.00T IFF Normal [facility] Discharge Instructionson Discharge Instructions [id number]#1.00 TIFF Normal [facility] ED Clinical Summaryon 2023 ED Clinical Summary Normal [facility] ED Note-Nursingon 08-12-2023 ED Note-Nursing This nurse went to discharge patient and recheck vitals and patient has eloped from the department without her instructions. Normal [facility] ED Note-Physicianon 08-12-19 ED Note-Physician [facility] Comment on above: Result Comment: Elec tronically Signed By: Elisa Sánchez DO.br\Date and Time Signed: 08/12/23 22:53 EDT ED Patient Education Noteon 08-12-2023 ED Patient Education Note Normal [facility] ED Patient Summaryon 024 ED Patient Summary Normal [facility] ED NOTESon 08-09-2023 [facility] Ed Note ED Note: Last filed note HNO ID: [id number] Author: Yarelis Finley RN Service: ? Author Type: Registered Nurse Filed: 08/09/23 2314 Note Text: Discharge instructions, medications and follow up discussed with patient with patient's understanding verbalized. Patient left the department in no acute distress. Normal [facility] ED PROVIDER NOTESon 08-09-19 [facility] Ed Provider Note ED Provider Note: L ast filed note HNO ID: [id number] Author: Keke Payne MD Service: ? Author Type: Physician Filed: 08/09/23 6444 Note Text: [facility] Keke Payne MD Attending Physician [...] upcoming lumbar surgery in 2 weeks at [facility]. She just had a 3-hour car ride [...] lower back pain with radicular pain Normal [facility] Ed Provider Note ED Provider Note: Pepe blas filed note HNO ID: [id number] Author: Courtney Gibbs MD Service: Emergency Medicine [...] scheduled for surgery later this month in [place]. Patient states that she is in town [...] Courtney Gibbs MD, 1 Patch at 08/09/23 7053 Current Outpatient Medications: oxyCODONE-acetaminophen (PERCOCET) 5-325 mg [...] topical patc (more content not included)... Normal [facility] ED TRIAGEon 08-09-2023 [facility] Ed Triage Note ED Triage Note: Last filed note HNO ID: [id number] Author: Juan Gustafson RN Service: ? Author Type: Registered Nurse Filed: 08/09/23 3733 Note Text: Patient arrives through triage for complaints of chronic back pain that is worsened by a [address] Endorses history of L 4-5 disc herniation. A/O x4 with respirations even and unlabored. Normal [facility] Consent for Treatmenton 07-23 Consent for Treatment [id number]#1.00T IFF Normal [facility] Discharge Instructionson Discharge Instructions [id number]#1.0 0TIFF Normal [facility] ED Clinical Summaryon 2023 ED Clinical Summary Normal [facility] ED Note-Physicianon 08-05-19 ED Note-Physician Normal [facility] Comment on above: Result Comment: Elec tronically Signed By: Landon Tidwell PA-C\.br\Date and Time Signed: 08/05/23 21:19 EDT\.br\Electronically Co-Signed By: Pedro Pablo Fletcher DO\Date and Time Co-Signed: 08/05/23 22:58 EDT ED Patient Education Noteon 08-05-2023 ED Patient Education Note Normal [facility] ED Patient Summaryon 024 ED Patient Summary Normal [facility] Basic metabolic 2000 panelon 08-02-2023 Anion gap [Moles/Vol] 15 mmol/L Normal 10-20 [facility] Comment on above: Performed By: #### 2 4321-2 ####JOLENE Cantu ([id number])[facility] ([facility])[address] [place] [address] Calcium [Mass/Vol] 8.8 mg/dL Normal 8.6-10.6 [facility] Comment on above: Performed By: #### 2 4321-2 ####JOLENE Cantu ([id number])[facility] ([facility])[address] [place] [address] Chloride [Moles/Vol] 105 mmol/L Normal 98-107 [facility] Comment on above: Performed By: #### 2 4321-2 ####JOLENE RONQUILLO L ([id number])[facility] ([facility])[address] [place] [address] CO2 [Moles/Vol] 24 mmol/L Normal 21-32 [facility] Comment on above: Performed By: #### 2 4321-2 ####JOLENE RONQUILLO L ([id number])[facility] ([facility])[address] [place] [address] Creatinine [Mass/Vol] 0.63 mg/dL Normal 0.50-1.05 [facility] Comment on above: Performed By: #### 2 4321-2 ####JOLENE RONQUILLO L ([id number])[facility] ([facility])[address] [place] [address] GFR/1.73 sq M.predicted MDRD (S/P/Bld) [Vol rate/Area] mL/min/{1.73_m2} Normal >60 [facility] Comment on above: Result Comment: Calc ulations of estimated GFR are performed using the 2020 CKD-EPI Study Refit equation without the race variable for the IDMS-Traceable creatinine methods.https://jasn.asnjournals.org/content//A SN.0403523827 Performed By: #### 2 4321-2 ####JOLENE Cantu ([id number])[facility] ([facility])[address] [place] [address] Glucose [Mass/Vol] 87 mg/dL Normal 74-99 [facility] Comment on above: Performed By: #### 2 4321-2 ####JOLENE Cantu ([id number])[facility] ([facility])[address] [place] [address] Potassium [Moles/Vol] 4.8 mmol/L Normal 3.5-5.3 [facility] Comment on above: Performed By: #### 2 4321-2 ####JOLENE Cantu ([id number])[facility] ([facility])[address] [place] [address] Sodium [Moles/Vol] 139 mmol/L Normal 136-145 [facility] Comment on above: Performed By: #### 2 4321-2 ####JOLENE RONQUILLO L ([id number])[facility] ([facility])[address] [place] [address] Urea nitrogen [Mass/Vol] 10 mg/dL Normal 6-23 [facility] Comment on above: Performed By: #### 2 4321-2 ####JOLENE RONQUILLO L ([id number])[facility] ([facility])[address] [place] [address] Blood type and Indirect anti body screen panel (Bld)on 08-02-2023 ABO group Nom (Bld) O Normal [facility] Comment on above: Performed By: #### 3 4532-2 ####JOLENE Cantu ([id number])[facility] ([facility])[address] [place] [address] Blood group antibody screen Ql Negative Normal [facility] Comment on above: Performed By: #### 3 4532-2 ####JOLENE Cantu ([id number])[facility] ([facility])[address] [place] [address] D Ag Ql (Bld) Positive Normal [facility] Comment on above: Result Comment: 2nd ABO test required. Order and Collect VERAB Performed By: #### 3 4532-2 ####JOLENE Cantu ([id number])[facility] ([facility])[address] [facility] [place] [address] CBC panel Auto (Bld)on 08-01 Erythrocyte distribution width (RBC) [Ratio] 12.7 % Normal 11.5-14.5 [facility] Comment on above: Performed By: #### 5 8410-2 ####JOLENE Cantu ([id number])[facility] ([facility])[address] [place] [address] Hematocrit (Bld) [Volume fraction] 42.8 % Normal 36.0-46.0 [facility] Comment on above: Performed By: #### 5 8410-2 ####JOLENE Cantu ([id number])[facility] ([facility])[address] [place] [address] Hemoglobin (Bld) [Mass/Vol] 14.4 g/dL Normal 12.0-16.0 [facility] Comment on above: Performed By: #### 5 8410-2 ####JOLENE Cantu ([id number])[facility] ([facility])[address] [place] [address] MCH (RBC) [Entitic mass] 30.9 pg Normal 26.0-34.0 [facility] Comment on above: Performed By: #### 5 8410-2 ####JOLENE Cantu ([id number])[facility] ([facility])[address] [place] [address] MCHC (RBC) [Mass/Vol] 33.6 g/dL Normal 32.0-36.0 [facility] Comment on above: Performed By: #### 5 8410-2 ####JOLENE Cantu ([id number])[facility] ([facility])[address] [place] [address] MCV (RBC) [Entitic vol] 92 fL Normal 80-100 [facility] Comment on above: Performed By: #### 5 8410-2 ####JOLENE Cantu ([id number])[facility] ([facility])[address] [place] [address] Nucleated RBC/100 WBC (Bld) [Ratio] 0.0 /100 WBCs Normal 0.0-0.0 [facility] Comment on above: Performed By: #### 5 8410-2 ####JOLENE Cantu ([id number])[facility] ([facility])[address] [place] [address] Platelets (Bld) [#/Vol] 308 x10*3/uL Normal 150-450 [facility] Comment on above: Performed By: #### 5 8410-2 ####JOLENE Cantu ([id number])[facility] ([facility])[address] [place] [address] RBC (Bld) [#/Vol] 4.66 x10*6/uL Normal 4.00-5.20 [facility] Comment on above: Performed By: #### 5 8410-2 ####JOLENE Cantu ([id number])[facility] ([facility])[address] [place] [address] WBC (Bld) [#/Vol] 5.9 x10*3/uL Normal 4.4-11.3 [facility] Comment on above: Performed By: #### 5 8410-2 ####JOLENE Cantu ([id number])[facility] ([facility])[address] [place] [address] CT Spine Lumbar w/o Contrast on 08-02-2023 CT Spine Lumbar w/o Contrast Normal [facility] Consent for Treatmenton 07-23 Consent for Treatment [id number]#1.00T IFF Normal [facility] Discharge Instructionson Discharge Instructions [id number]#1.00 TIFF Normal [facility] ED Clinical Summaryon 2023 ED Clinical Summary Normal [facility] ED Note-Physicianon 08-02-19 ED Note-Physician Normal [facility] Comment on above: Result Comment: Elec tronically Signed By: Landon Tidwell PA-C\.br\Date and Time Signed: 08/02/23 15:22 EDT\.br\Electronically Co-Signed By: Nikhil Tubbs DO\.br\Date and Time Co-Signed: 08/02/23 15:32 EDT ED Patient Education Noteon 08-02-2023 ED Patient Education Note Normal [facility] ED Patient Summaryon 024 ED Patient Summary Normal [facility] PT and aPTT panel Coag (PPP) on 08-02-2023 aPTT Coag (PPP) [Time] 33 s Normal 27-38 Un [facility] Comment on above: Order Comment: The A PTT is no longer used for monitoring Unfractionated Heparin Therapy. For monitoring Heparin Therapy, use the Heparin Assay. Performed By: #### 3 4529-8 ####JOLENE Cantu ([id number])[facility] ([facility])[address] [place] [address] INR Coag (PPP) [Relative time] 1.0 Normal 0.9-1.1 [facility] Comment on above: Order Comment: The A PTT is no longer used for monitoring Unfractionated Heparin Therapy. For monitoring Heparin Therapy, use the Heparin Assay. Performed By: #### 3 4529-8 ####JOLENE Cantu (02558)[facility] ([facility])[address] [place] [address] PT Coag (PPP) [Time] 11.1 s Normal 9.8-12.8 [facility] Comment on above: Order Comment: The A PTT is no longer used for monitoring Unfractionated Heparin Therapy. For monitoring Heparin Therapy, use the Heparin Assay. Performed By: #### 3 4529-8 ####JOLENE Cantu ([id number])[facility] ([facility])[address] [place] [address] Progress Note-Nurseon 2023 Progress Note-Nurse Pt leaves with ride Normal [facility] Staphylococcus aureus.methic illin resistant isolateon 08-02-2023 MRSA isol Org specific cx Ql (Nose) Normal [facility] Comment on above: Performed By: #### 5 2969-3 ####JOLENE Cantu ([id number])[facility] ([facility])[address] [place] [address] Urinalysis complete W Reflex Culture panel (U)on 08-02-2023 Appearance (U) Clear Normal Clear [facility] Comment on above: Performed By: #### 5 8077-9 ####JOLENE Cantu (25820)[facility] ([facility])[address] [place] [address] Bilirubin (U) [Mass/Vol] Negative Normal NEGATIVE [facility] Comment on above: Performed By: #### 5 8077-9 ####JOLENE Cantu ([id number])[facility] ([facility])[address] [place] [address] 61668 Color (U) Colorless Normal Light-Yellow , Yellow, Dark-Yellow [facility] Comment on above: Performed By: #### 5 8077-9 ####JOLENE Cantu ([id number])[facility] ([facility])[address] [place] [address]64 Glucose Auto test strip (U) [Mass/Vol] Normal Normal Normal [facility] Comment on above: Performed By: #### 5 8077-9 ####JOLENE Cantu (68982)[facility] ([facility])[address] [place] [address] Ketones (U) [Mass/Vol] Negative Normal NEGATIVE [facility] Comment on above: Performed By: #### 5 8077-9 ####JOLENE Cantu (18572)[facility] ([facility])[address] [place] [address] Leukocyte esterase Auto test strip Ql (U) Negative Normal NEGATIVE [facility] Comment on above: Performed By: #### 5 8077-9 ####JOLENE Cantu (62947)[facility] ([facility])[address] [place] [address] Nitrite Auto test strip Ql (U) Negative Normal NEGATIVE [facility] Comment on above: Performed By: #### 5 8077-9 ####JOLENE Cantu ([id number])[facility] ([facility])[address] [place] [address] 11057 pH (U) 7.5 [pH] Normal 5.0, 5.5, 6.0, 6.5, 7.0, 7.5, 8.0 [facility] Comment on above: Performed By: #### 5 8077-9 ####JOLENE Cantu (49500)[facility] ([facility])[address] [place] [address] Protein (U) [Mass/Vol] Negative Normal NEGAT ALEXANDRE, 10 (TRACE), 20 (TRACE) [facility] Comment on above: Performed By: #### 5 8077-9 ####JOLENE Cantu (65765)[facility] ([facility])[address] [place] [address] 25702 RBC (U) [#/Vol] Negative Normal NEGATIVE [facility] Comment on above: Performed By: #### 5 8077-9 ####JOLENE Cantu ([id number])[facility] ([facility])[address] [place] [address] Specific gravity (U) [Rel density] 1.007 Normal 1.005-1.035 [facility] Comment on above: Performed By: #### 5 8077-9 ####JOLENE Cantu (46604)[facility] ([facility])[address] [place] [address] Urobilinogen (U) [Mass/Vol] Normal Normal Normal [facility] Comment on above: Performed By: #### 5 8077-9 ####JOLENE Cantu (68798)[facility] ([facility])[address] [place] [address] Consent for Treatmenton Consent for Treatment [id number]#1.00T IFF Normal [facility] Discharge Instructionson Discharge Instructions [id number]#1.00T IFF Normal [facility] ED Clinical Summaryon 2023 ED Clinical Summary Normal [facility] ED Note-Physicianon 07-31-19 ED Note-Physician Normal [facility] Comment on above: Result Comment: Elec tronically Signed By: Landon Tidwell PA-C\.br\Date and Time Signed: 07/31/23 15:32 EDT\.br\Electronically Co-Signed By: Balbina Bryant M.D.\.br\Date and Time Co-Signed: 07/31/23 15:51 EDT ED Patient Education Noteon 07-31-2023 ED Patient Education Note Normal [facility] ED Patient Summaryon 024 ED Patient Summary Normal [facility] Consent To Leave AMAon 07-25 Consent To Leave AMA [id number]#1.00T IFF Normal [facility] Consent for Treatmenton Consent for Treatment [id number]#1.00T IFF Normal [facility] Discharge Instructionson Discharge Instructions [id number]#1.00T IFF Normal [facility] ED Clinical Summaryon 2023 ED Clinical Summary Normal [facility] ED Note-Physicianon 07-26-19 ED Note-Physician Normal [facility] Comment on above: Result Comment: Elec tronically Signed By: Jorge Mcintosh DO\.br\Date and Time Signed: 07/26/23 11:28 EDT ED Patient Education Noteon 07-26-2023 ED Patient Education Note Normal [facility] ED Patient Summaryon 024 ED Patient Summary Normal [facility] Consultation Noteon 07-24-19 Consultation Note [id number]#1.00T IFF Normal [facility] Consultation Note [id number]#1.00T IFF Normal [facility] Family Medicine Office/Clini c Noteon 07-23-2023 Family Medicine Office/Clinic Note Normal [facility] Comment on above: Result Comment: Elec tronically Signed By: Cheyanne Rincon\.br\Date and Time Signed: 07/23/23 14:37 EDT Physician Referralon 024 Physician Referral [id number]#1.00T IFF Normal [facility] CT Abdomen/Pelvis w/o Contra ston 07-21-2023 CT Abdomen/Pelvis w/o Contrast Normal [facility] ED Note-Physicianon 07-21-19 ED Note-Physician Normal [facility] Comment on above: Result Comment: Elec tronically Signed By: Balbina Bryant M.D.\.br\Date and Time Signed: 07/21/23 04:24 EDT XR Chest Single Viewon 07-20 XR Chest Single View Normal [facility] BMPon 07-20-2023 Anion gap [Moles/Vol] 10 mmol/L Normal 6-16 [facility] Comment on above: Performed By: #### 2 571236, 9170654, 48312542, 45901343, 95862009, 8390156, 09489672 ####[facility] [address] [place] [address] Calcium [Mass/Vol] 8.2 mg/dL Low 8.9-11.1 [facility] Comment on above: Performed By: #### 2 057486, 2512479, 39880426, 10151630, 97067186, 5262062, 12728598 ####[facility] [address] [place] [address] Chloride [Moles/Vol] 105 mmol/L Normal 101-111 [facility] Comment on above: Performed By: #### 2 654411, 2558917, 43097089, 66571910, 82413644, 9256350, 84496127 ####[facility] [address] [place] [address] CO2 [Moles/Vol] 26 mmol/L Normal 21-31 [facility] Comment on above: Performed By: #### 2 775893, 2477376, 54034135, 59855708, 49117905, 5059546, 40704908 ####[facility] [address] [place] [address] Creatinine [Mass/Vol] 0.7 mg/dL Normal 0.5-1.3 [facility] Comment on above: Performed By: #### 2 060842, 7034829, 65259712, 81641851, 92686297, 2880901, 33712171 ####[facility] [address] [place] [address] Glucose [Mass/Vol] 122 mg/dL Normal 55-199 [facility] Comment on above: Performed By: #### 2 701619, 4180261, 44148513, 84301050, 94312338, 7992925, 96204789 ####[facility] [address] [place] [address] Potassium [Moles/Vol] 4.0 mmol/L Normal 3.5-5.3 [facility] Comment on above: Performed By: #### 2 450786, 8200324, 47960927, 63698783, 53298336, 5099848, 32893693 ####[facility] [address] [place] [address] Sodium [Moles/Vol] 137 mmol/L Normal 135-145 [facility] Comment on above: Performed By: #### 2 610292, 5065749, 22215389, 44539818, 16752906, 7067221, 71498758 ####[facility] [address] [place] [address] Urea nitrogen [Mass/Vol] 17 mg/dL Normal 5-21 [facility] Comment on above: Performed By: #### 2 040483, 1062165, 01019328, 49493952, 20600009, 9790360, 95246472 ####[address] [place] [address] Urea nitrogen/Creatinine [Mass ratio] 24 No Units High 10-20 [facility] Comment on above: Performed By: #### 2 711745, 4539302, 07567213, 25706690, 28011881, 0860264, 78080880 ####[address] [address] BNPon 07-20-2023 Natriuretic peptide B (Bld) [Mass/Vol] 25 pg/mL Normal 5-80 [facility] Comment on above: Performed By: #### 2 543818, 6067813, 09721343, 31354173, 21304721, 5834979, 71383891 ####[facility] [address] [place] [address] CBC w/ Auto Diffon 4 Basophils/100 WBC (Bld) 0.4 % Normal 0.0-2.0 [facility] Comment on above: Performed By: #### 2 277195, 4630370, 63035838, 26868139, 33441772, 6569886, 44795779 ####[facility] [address] [place] [address] Basophils/Leukocytes Auto (Bld) [Pure # fraction] 0.0 E9/L Normal 0.0-0.2 [facility] Comment on above: Performed By: #### 2 172009, 1114571, 05446065, 56518632, 22795017, 7877520, 35721873 ####[address] [address] Eosinophils (Bld) [#/Vol] 0.2 E9/L Normal 0.0-0.5 [facility] Comment on above: Performed By: #### 2 271273, 6779930, 42227711, 98124812, 31816453, 0397019, 26751912 ####[address] [address] Eosinophils/100 WBC (Bld) 1.3 % Normal 0.0-8.0 [facility] Comment on above: Performed By: #### 2 864915, 6588833, 65620449, 66062660, 70515713, 2121003, 50035544 ####[address] [address] Erythrocyte distribution width (RBC) [Ratio] 13.3 % Normal 10.9-14.2 [facility] Comment on above: Performed By: #### 2 803458, 5335775, 79300394, 12418887, 07790326, 2891544, 72202251 ####[address] [address] Hematocrit (Bld) [Volume fraction] 38.3 % Normal 34.0-46.0 [facility] Comment on above: Performed By: #### 2 880456, 7804728, 36587795, 89118860, 38370937, 3120128, 80005838 ####[address] [address] Hemoglobin (Bld) [Mass/Vol] 12.9 g/dL Normal 12.0-16.0 [facility] Comment on above: Performed By: #### 2 439880, 0553651, 37594437, 07958766, 80053245, 0983362, 14475756 ####[facility] [address] [place] [address] Lymphocytes (Bld) [#/Vol] 2.2 E9/L Normal 1.0-4.0 [facility] Comment on above: Performed By: #### 2 054494, 5596602, 99173862, 71063654, 61529753, 9669404, 19421312 ####[address] [place] [address] Lymphocytes/100 WBC (Bld) 18.2 % Normal 14.0-50.0 [facility] Comment on above: Performed By: #### 2 266797, 3901935, 03725913, 19658332, 05049835, 5275531, 95292893 ####[address] [address] MCH (RBC) [Entitic mass] 31.7 pg Normal 27.0-34.0 [facility] Comment on above: Performed By: #### 2 034967, 5333563, 90671041, 07935679, 98703911, 0157568, 20295395 ####[address] [address] MCHC (RBC) [Mass/Vol] 33.8 g/dL Normal 31.4-36.0 [facility] Comment on above: Performed By: #### 2 596398, 5883850, 38098234, 35775016, 41623512, 0340460, 77563396 ####[address] [address] MCV (RBC) [Entitic vol] 93.8 fL Normal 80.0-100.0 [facility] Comment on above: Performed By: #### 2 254482, 1981092, 44295190, 46537885, 70147114, 7732156, 38871508 ####[facility] [address] [place] [address] Monocytes (Bld) [#/Vol] 0.6 E9/L Normal 0.2-1.0 [facility] Comment on above: Performed By: #### 2 021963, 3909463, 19090511, 98306111, 40630513, 2273493, 53164100 ####[facility] [address] [place] [address] Neutrophils (Bld) [#/Vol] 9.0 E9/L High 2.0-7.5 [facility] Comment on above: Performed By: #### 2 708173, 2783374, 46835316, 83207147, 87714846, 8673693, 11568352 ####[address] [address] Neutrophils/100 WBC (Bld) 75.2 % High 36.0-75.0 [facility] Comment on above: Performed By: #### 2 677744, 0111789, 37267607, 39680967, 29365322, 9951164, 02518931 ####[facility] [address] [place] [address] Platelet mean volume (Bld) [Entitic vol] 8.9 fL Normal 6.4-10.8 [facility] Comment on above: Performed By: #### 2 714603, 4879722, 81086998, 95144588, 01429990, 7901552, 37530419 ####[facility] [address] [place] [address] Platelets (Bld) [#/Vol] 245.0 E9/L Normal 150.0-500.0 [facility] Comment on above: Performed By: #### 2 359809, 6851758, 21595463, 95328401, 23273848, 7551999, 57905106 ####[address] [address] RBC (Bld) [#/Vol] 4.1 E12/L Low 4.3-5.9 [facility] Comment on above: Performed By: #### 2 024903, 9301702, 27042101, 05914817, 83568885, 2755687, 81027975 ####[facility] [address] [place] [address] WBC corrected for nucl RBC Auto (Bld) [#/Vol] 11.9 E9/L High 4.0-11.0 [facility] Comment on above: Performed By: #### 2 708900, 2648429, 16271472, 48477974, 08597322, 4545760, 08210573 ####[facility] [address] [place] [address] Consent for Treatmenton 06-24 Consent for Treatment [id number]#1.00T IFF Normal [facility] Discharge Instructionson Discharge Instructions [id number]#1.00T IFF Normal [facility] ED Clinical Summaryon 2023 ED Clinical Summary Normal [facility] ED Patient Education Noteon 07-20-2023 ED Patient Education Note Normal [facility] ED Patient Summaryon 024 ED Patient Summary Normal [facility] Hep Func Panelon 07-20-2023 Albumin [Mass/Vol] 3.8 g/dL Normal 3.3-5.0 [facility] Comment on above: Performed By: #### 2 619483, 3852876, 08553044, 57080867, 09840340, 7450761, 29183083 ####[facility] [address] [place] [address] Albumin/Globulin (S) [Mass conc ratio] 1.4 Normal 1.1-2.2 [facility] Comment on above: Performed By: #### 2 781732, 5762990, 33477005, 94751999, 09252589, 5828678, 89284269 ####[facility] [address] [place] [address] ALP [Catalytic activity/Vol] 68 Int._Unit/L Normal 21-98 [facility] Comment on above: Performed By: #### 2 636736, 2624962, 58379982, 95107963, 54218802, 5850763, 72442328 ####[facility] [address] [place] [address] ALT No additional P-5'-P [Catalytic activity/Vol] 22 Int._Unit/L Normal 6-46 [facility] Comment on above: Performed By: #### 2 020726, 2756493, 38701945, 31092007, 38683840, 4931211, 80163823 ####[address] [address] AST [Catalytic activity/Vol] 26 Int._Unit/L Normal 5-43 [facility] Comment on above: Performed By: #### 2 203399, 9063046, 75699660, 95931347, 63134592, 7009377, 87210477 ####[facility] [address] [place] [address] Bilirubin [Mass/Vol] 0.3 mg/dL Normal 0.0-1.1 [facility] Comment on above: Performed By: #### 2 014357, 4781571, 92272895, 26603763, 49292011, 3680010, 51123650 ####[facility] [address] [place] [address] Bilirubin.direct [Mass/Vol] 0.1 mg/dL Normal 0.0-0.4 [facility] Comment on above: Performed By: #### 2 126682, 0806593, 16970234, 32917516, 47897126, 6673181, 94035141 ####[address] [place] [address] Bilirubin.indirect [Mass or moles/Vol] 0.2 mg/dL Normal 0.1-0.9 [facility] Comment on above: Performed By: #### 2 783921, 5480635, 88765435, 84675399, 14893899, 5028959, 61539971 ####[facility] [address] [place] [address] Globulin (S) [Mass/Vol] 2.8 g/dL Normal 1.4-4.0 [facility] Comment on above: Performed By: #### 2 281609, 8102103, 81205415, 92275608, 17467689, 7233977, 04130007 ####[facility] [address] [place] [address] Protein [Mass/Vol] 6.6 g/dL Normal 6.0-7.8 [facility] Comment on above: Performed By: #### 2 581058, 9395098, 87225162, 79686020, 05508529, 8275422, 36040576 ####[facility] [address] [place] [address] PT & PTTon 07-20-2023 aPTT Coag (PPP) [Time] 33.9 second(s) Normal 25.1-36.5 [facility] Comment on above: Result Comment: [...] same coagulation reagent and instrumentation as [facility] [place]. Currently there are no coagulation studies available worldwide for children to 14 days, and no normal ranges. Heparin therapeutic range (represented by Anti-Factor Xa activity of 0.2 - 0.4 U/mL) corresponds to PTT of 56.6 - 109.0 sec. Performed By: #### 2 801881, 4001596, 93566742, 76140699, 57875100, 5771872, 45209763 ####[facility] [address] [place] [address] INR Coag (PPP) [Relative time] 0.98 {INR} Invalid Interpretation Code [facility] Comment on above: Result Comment: INR results are specifically intended to assess patients stabilized on long-term Anticoagulation therapy suggested INR?s ?Less Intensive Anticoagulation? 2.0 ? 3.0Conventional Range 3.0 ? 4.5 Performed By: #### 2 797108, 4730555, 96088702, 68583302, 89244519, 6933159, 44445256 ####[facility] [address] [place] [address] PT Coag (PPP) [Time] 11.0 second(s) Normal 9.4-12.5 [facility] Comment on above: Result Comment: [...] same coagulation reagent and instrumentation as [facility] [place]. Currently there are no coagulation studies available worldwide for children to 14 days, and no normal ranges. Performed By: #### 2 447487, 0288086, 52946973, 94028047, 20019007, 9016184, 30087200 ####[facility] [address] [place] [address] RAD - Preliminary Cat Scan R eporton 07-20-2023 RAD - Preliminary Cat Scan Report [id number]#1.00T IFF Normal [facility] Troponin 0 Hr.on 07-20-2023 Troponin 11.90 pg/mL Normal 10.10-27.10 [facility] Comment on above: Result Comment: The 95% CI (Confidence Interval) PPV (Positive Predictive Value) for myocardial infarction in females is 38 pg/mL, in males 51 pg/mL. The results should be used in conjunction with clinical conditions of myocardial infarction.(Access High Sensitivity Troponin I Instructions For Use, [employer], October 2017) Performed By: #### 2 394620, 8898100, 57016532, 59006803, 20344516, 2686547, 53114989 ####[facility] [address] [place] [address] Troponin 1 Hr.on 07-20-2023 Troponin 2.50 pg/mL Low 10.10-27.10 [facility] Comment on above: Order Comment: to be drawn at [id number]. [id number] 07/20/2023 18:47:40 EDT Result Comment: The 95% CI (Confidence Interval) PPV (Positive Predictive Value) for myocardial infarction in females is 38 pg/mL, in males 51 pg/mL. The results should be used in conjunction with clinical conditions of myocardial infarction.(Access High Sensitivity Troponin I Instructions For Use, [employer], October 2017) Performed By: #### 1 7759167 ####[facility] [address] [place] [address] eGFRon 07-20-2023 eGFR 108 mL/min/1.73 m2 Normal >=59 [facility] Comment on above: Order Comment: Order added by Discern Expert. Performed By: #### 2 285632, 7507882, 62176069, 00836270, 52208464, 1635331, 83853554 ####[facility] [address] [place] [address] Outside Records Officeon Outside Records Office [id number]#1.00 TIFF Normal [facility] Ambulatory Visit Summaryon 0 07-17-2023 Ambulatory Visit Summary Invalid Interpretation Code Weight gain [facility] Auth for Release of Medical Recordson 07-17-2023 Auth for Release of Medical Records [id number]#1.00T IFF Normal [facility] Formson 07-17-2023 Forms [id number]#1.00T IFF Normal [facility] Patient Educationon 07-17-19 Patient Education Normal [facility] Outside Records Officeon Outside Records Office [id number]#1.00 TIFF Normal [facility] Outside Records Office [id number]#1.00 TIFF Normal [facility] Consent for Treatmenton 06-24 Consent for Treatment [id number]#1.00 TIFF Normal [facility] Consultation Noteon 07-15-19 Consultation Note Normal [facility] Comment on above: Result Comment: Elec tronically Signed By: Joao MILES, Dory\.br\Date and Time Signed: 07/15/23 14:14 EDT HIPAA Forms Officeon 024 HIPAA Forms Office [id number]#1.00 TIFF Normal [facility] Legal Correspondence Officeo n 07-15-2023 Legal Correspondence Office [id number]#1.00 TIFF Normal [facility] Legal Correspondence Office [id number]#1.00 TIFF Normal [facility] Office/Clinic Note-Physician on 07-15-2023 Office/Clinic Note-Physician [id number]#1.00 TIFF Normal [facility] Patient Correspondenceon Patient Correspondence [id number]#1.00 TIFF Normal [facility] Patient Correspondence [id number]#1.00 TIFF Normal [facility] Patient Correspondence [id number]#1.00 TIFF Normal [facility] Patient Correspondence [id number]#1.00 TIFF Normal [facility] Patient Correspondence [id number]#1.00 TIFF Normal [facility] Patient History Officeon Patient History Office [id number]#1.00 TIFF Normal [facility] Release of Records Officeon 07-15-2023 Release of Records Office [id number]#1.00 TIFF Normal [facility] Release of Records Office [id number]#1.00 TIFF Normal [facility] Consent for Treatmenton 06-24 Consent for Treatment [id number]#1.00T IFF [facility] Discharge Instructionson Discharge Instructions [id number]#1.00 TIFF Normal [facility] ED Clinical Summaryon 2023 ED Clinical Summary Normal [facility] ED Note-Physicianon 07-14-19 ED Note-Physician Normal [facility] Comment on above: Result Comment: Elec tronically Signed By: Angelic Reece PA-C\.br\Date and Time Signed: 07/14/23 12:06 EDT\.br\Electronically Co-Signed By: Nikhil Tubbs DO.br\Date and Time Co-Signed: 07/14/23 13:59 EDT ED Patient Education Noteon 07-14-2023 ED Patient Education Note Normal [facility] ED Patient Summaryon 024 ED Patient Summary Normal [facility] Consent for Treatmenton 06-23 Consent for Treatment [id number]#1.00T IFF Normal [facility] Discharge Instructionson Discharge Instructions [id number]#1.00TI FF Normal [facility] ED Clinical Summaryon 2023 ED Clinical Summary Normal [facility] ED Note-Physicianon 07-11-19 ED Note-Physician Normal [facility] Comment on above: Result Comment: Elec tronically Signed By: Balbina Bryant M.D.\Adrienbr\Date and Time Signed: 07/11/23 10:11 EDT ED Patient Education Noteon 07-11-2023 ED Patient Education Note Normal [facility] ED Patient Summaryon 024 ED Patient Summary Normal [facility] Clipboard Summaryon 07-08-19 Clipboard Summary {[id number]-12-[id number]-01-9d-ab-4 a-8 9-06-17-1z-71-3b-d1-42- 37}XML Normal [facility] Discharge Instructionson Discharge Instructions [id number]#1.00 TIFF Normal [facility] Consent for Treatmenton 06-23 Consent for Treatment [id number]#1.00T IFF Normal [facility] ED Clinical Summaryon 2023 ED Clinical Summary Normal [facility] ED Note-Physicianon 07-06-19 ED Note-Physician Normal [facility] Comment on above: Result Comment: Elec tronically Signed By: Pedro Pablo Fletcher DO\Adrienbr\Date and Time Signed: 07/06/23 19:43 EDT ED Patient Education Noteon 07-06-2023 ED Patient Education Note Normal [facility] ED Patient Summaryon 024 ED Patient Summary Normal [facility] Consent for Treatmenton Consent for Treatment [id number]#1.00T IFF Normal [facility] Discharge Instructionson Discharge Instructions [id number]#1.00 TIFF Normal [facility] ED Clinical Summaryon 2023 ED Clinical Summary Normal [facility] ED Note-Physicianon 06-29-19 ED Note-Physician Normal [facility] Comment on above: Result Comment: Elec tronically Signed By: Landon Tidwell PA-C\.br\Date and Time Signed: 06/29/23 15:22 EDT\.br\Electronically Co-Signed By: Nikhil Tubbs DO\.br\Date and Time Co-Signed: 06/29/23 15:52 EDT ED Patient Education Noteon 06-29-2023 ED Patient Education Note Normal [facility] ED Patient Summaryon ED Patient Summary Normal [facility] .HCV RT-PCR, Quant (Non-Grap h)on 06-27-2023 Diagnostic impression Molgen Sky (Unsp spec) [Interp] Comment Invalid Interpretation Code [facility] Comment on above: Result Comment: Posi tive HCV antibody screen without the presence of HCV RNAis consistent with a resolved past infection or a falsepositive HCV antibody. Consider repeat testing after onemonth.Performed at: [facility] [id number] MD Bhargav Lamar Performed By: #### 2 998113, [id number], [id number] ####[facility] [address] [place] [address] HCV RNA LINDSEY+probe Qn Not detected Invalid Interpretation Code [facility] Comment on above: Performed By: #### 2 242646, [id number], [id number] ####[facility] [address] [place] [address] Reference Lab Test Reference Range Comment Invalid Interpretation Code [facility] Comment on above: Result Comment: The quantitative range of this assay is 15 IU/mL to 100 million IU/mL. Performed By: #### 2 112678, [id number], [id number] ####[facility] [address] [place] [address] Consent for Treatmenton Consent for Treatment [id number]#1.00T IFF Normal [facility] Discharge Instructionson Discharge Instructions [id number]#1.00 TIFF Normal [facility] ED Clinical Summaryon 2023 ED Clinical Summary Normal [facility] ED Note-Physicianon 06-27-19 ED Note-Physician Normal [facility] Comment on above: Result Comment: Elec tronically Signed By: Kristie Boss PA-C\.br\Date and Time Signed: 06/27/23 12:40 EDT\.br\Electronically Co-Signed By: Nikhil Tubbs DO\.br\Date and Time Co-Signed: 06/27/23 14:49 EDT ED Patient Education Noteon 06-27-2023 ED Patient Education Note Normal [facility] ED Patient Summaryon ED Patient Summary Normal [facility] HCV Antibody RFX to Quant PC Fernando 06-27-2023 HCV IgG IA Ql Reactive Abnormal Non Reactive [facility] Comment on above: Result Comment: Perf ormed at: [facility] [address] [id number] PhD Pantera Alonso Performed By: #### 2 486733, [id number], [id number] ####[facility] [address] [place] [address] Hep Bs Agon 06-27-2023 HBV surface Ag IA Ql Negative Invalid Interpretation Code Negative [facility] Comment on above: Result Comment: Perf ormed at: [facility] [address] [place], [place] [id number] PhD Pantera Alonso Performed By: #### 2 857056, [id number], [id number] ####[facility] [address] [place] [address] Consent for Treatmenton Consent for Treatment [id number]#1.00T IFF Normal [facility] Discharge Instructionson Discharge Instructions [id number]#1.00 TIFF Normal [facility] ED Clinical Summaryon 2023 ED Clinical Summary Normal [facility] ED Note-Physicianon 06-24-19 ED Note-Physician Normal [facility] Comment on above: Result Comment: Elec tronically Signed By: Annette Watkins, Balbina Sparks\.br\Date and Time Signed: 06/24/23 12:17 EDT ED Patient Education Noteon 06-24-2023 ED Patient Education Note Normal [facility] ED Patient Summaryon 024 ED Patient Summary Normal [facility] MRI Spine Lumbar w/o Contras ton 06-24-2023 MRI Spine Lumbar w/o Contrast Normal [facility] RAD - MRI Screening Formon 0 06-24-2023 RAD - MRI Screening Form [id number]#1.00T IFF Normal [facility] CT Abdomen/Pelvis w/ Contras ton 06-23-2023 CT Abdomen/Pelvis w/ Contrast Normal [facility] CBC w/ Auto Diffon 4 Basophils/100 WBC (Bld) 0.1 % Normal 0.0-2.0 [facility] Comment on above: Performed By: #### 1 3610057, 0882024, 8771333, 1784184, 5247140, 33670887, 94488469, 3347548 ####[address] [place] [address] Basophils/Leukocytes Auto (Bld) [Pure # fraction] 0.0 E9/L Normal 0.0-0.2 [facility] Comment on above: Performed By: #### 1 2385574, 1980931, 7638191, 5749517, 6246698, 84734710, 94184710, 7965733 ####[address] [address] Eosinophils (Bld) [#/Vol] 0.1 E9/L Normal 0.0-0.5 [facility] Comment on above: Performed By: #### 1 2357724, 4057309, 1026226, 1362280, 8774150, 71359604, 11487770, 6622884 ####[address] [address] Eosinophils/100 WBC (Bld) 0.9 % Normal 0.0-8.0 [facility] Comment on above: Performed By: #### 1 1095990, 6628187, 6466102, 9250452, 6413407, 66950236, 61080943, 1893813 ####[address] [address] Erythrocyte distribution width (RBC) [Ratio] 13.3 % Normal 10.9-14.2 [facility] Comment on above: Performed By: #### 1 0587445, 1347597, 2332890, 9040503, 5416640, 61965288, 55223019, 5104104 ####[address] [address] Hematocrit (Bld) [Volume fraction] 45.0 % Normal 34.0-46.0 [facility] Comment on above: Performed By: #### 1 5282455, 9850240, 2481795, 9461364, 1807652, 50172204, 38982741, 9836839 ####[address] [address] Hemoglobin (Bld) [Mass/Vol] 15.1 g/dL Normal 12.0-16.0 [facility] Comment on above: Performed By: #### 1 5584492, 9524124, 9453256, 3291143, 1256833, 25312753, 08147534, 0698410 ####[facility] [address] [place] [address] Lymphocytes (Bld) [#/Vol] 0.4 E9/L Low 1.0-4.0 [facility] Comment on above: Performed By: #### 1 0852873, 3540054, 3533507, 6373004, 0635516, 74307911, 47107870, 2908501 ####[address] [place] [address] Lymphocytes/100 WBC (Bld) 3.7 % Low 14.0-50.0 [facility] Comment on above: Performed By: #### 1 4375172, 7286149, 3583045, 0183669, 7859247, 83681311, 89161669, 7042910 ####[facility] [address] [place] [address] MCH (RBC) [Entitic mass] 31.5 pg Normal 27.0-34.0 [facility] Comment on above: Performed By: #### 1 5588796, 5909015, 2526870, 9376164, 5492652, 84211581, 00631605, 0240190 ####[facility] [address] [place] [address] MCHC (RBC) [Mass/Vol] 33.5 g/dL Normal 31.4-36.0 [facility] Comment on above: Performed By: #### 1 9791551, 8154028, 8810864, 8260145, 8341034, 66343899, 86894138, 8016271 ####[facility] [address] [place] [address] MCV (RBC) [Entitic vol] 94.2 fL Normal 80.0-100.0 [facility] Comment on above: Performed By: #### 1 6415708, 9067669, 5394507, 8775773, 7250256, 62701109, 95071294, 0738166 ####[facility] [address] [place] [address] Monocytes (Bld) [#/Vol] 0.3 E9/L Normal 0.2-1.0 [facility] Comment on above: Performed By: #### 1 5136910, 1359130, 3932118, 4152793, 5011121, 07384626, 86351762, 0433642 ####[address] [place] [address] Neutrophils (Bld) [#/Vol] 9.5 E9/L High 2.0-7.5 [facility] Comment on above: Performed By: #### 1 3128742, 2487202, 5555090, 0033043, 3027768, 11333177, 42306059, 3575036 ####[address] [address] Neutrophils/100 WBC (Bld) 92.1 % High 36.0-75.0 [facility] Comment on above: Performed By: #### 1 3727281, 1982626, 8334258, 5651694, 3148357, 97888270, 01532524, 0573764 ####[address] [place] [address] Platelet 308.0 E9/L Normal 150.0-500.0 [facility] Comment on above: Performed By: #### 1 4508270, 7060601, 0711514, 4798562, 1595898, 28368519, 61645130, 2347715 ####[address] [place] [address] Platelet mean volume (Bld) [Entitic vol] 8.7 fL Normal 6.4-10.8 [facility] Comment on above: Performed By: #### 1 3041156, 7399812, 2525765, 7377916, 5351538, 10711091, 61694825, 5201907 ####[facility] [address] [place] [address] RBC (Bld) [#/Vol] 4.8 E12/L Normal 4.3-5.9 [facility] Comment on above: Performed By: #### 1 6855281, 7056586, 9050311, 2333261, 1619285, 72691602, 17146669, 5283105 ####[facility] [address] [place] [address] WBC corrected for nucl RBC Auto (Bld) [#/Vol] 10.3 E9/L Normal 4.0-11.0 [facility] Comment on above: Performed By: #### 1 1146246, 6581598, 0970479, 5174109, 1091498, 61348165, 29151962, 6040161 ####[facility] [address] [place] [address] CHEMISTRYOrdered By: Chiquita saldana on 06-22-2023 Lactic [...] Sensitivity Troponin I Instructions For Use, [place], October 2017) Urea nitrogen [Mass/Vol] 13 mg/dL Normal 5 - 21 mg/dL Rem[facility] Chem Urea nitrogen/Creatinine [Mass ratio] 19 mg/mg Normal 10 - 20 Remisol Chem CMPon 06-22-2023 Albumin [Mass/Vol] 4.2 g/dL Normal 3.3-5.0 [facility] Comment on above: Performed By: #### 1 7255528, 3085049, 6755852, 5405606, 7316877, 05126450, 32189328, 4529417 ####[facility] [address] [place] [address] Albumin/Globulin (S) [Mass conc ratio] 1.2 Normal 1.1-2.2 [facility] Comment on above: Performed By: #### 1 5983499, 4206498, 9718598, 8541317, 1211828, 65091102, 66168915, 5881567 ####[facility] [address] [place] [address] ALP [Catalytic activity/Vol] 74 Int._Unit/L Normal 21-98 [facility] Comment on above: Performed By: #### 1 9165360, 8547250, 1056694, 1285528, 5398597, 98815402, 55985010, 7225234 ####[facility] [address] [place] [address] ALT No additional P-5'-P [Catalytic activity/Vol] 17 Int._Unit/L Normal 6-46 [facility] Comment on above: Performed By: #### 1 5445115, 3820727, 4751375, 4561573, 6472901, 69496486, 56963457, 5154960 ####[facility] [address] [place] [address] Anion gap [Moles/Vol] 13 mmol/L Normal 6-16 [facility] Comment on above: Performed By: #### 1 8152447, 5968225, 2260003, 2641417, 5577289, 07719486, 97038276, 9789419 ####[facility] [address] [place] [address] AST [Catalytic activity/Vol] 18 Int._Unit/L Normal 5-43 [facility] Comment on above: Performed By: #### 1 9556263, 4471245, 8609423, 3502948, 3165560, 39771294, 46536599, 6646034 ####[facility] [address] [place] [address] Bilirubin [Mass/Vol] 0.6 mg/dL Normal 0.0-1.1 [facility] Comment on above: Performed By: #### 1 9469136, 7901520, 1850452, 8093484, 2056311, 85378395, 42030030, 0049895 ####[facility] [address] [place] [address] Calcium [Mass/Vol] 8.3 mg/dL Low 8.9-11.1 [facility] Comment on above: Performed By: #### 1 0901406, 0868982, 5624326, 5666970, 6337019, 85573655, 35381431, 9489837 ####[facility] [address] [place] [address] Chloride [Moles/Vol] 106 mmol/L Normal 101-111 [facility] Comment on above: Performed By: #### 1 5623017, 8075088, 9713819, 1066560, 4128810, 33357528, 38690290, 7514165 ####[facility] [address] [place] [address] CO2 [Moles/Vol] 24 mmol/L Normal 21-31 [facility] Comment on above: Performed By: #### 1 1772558, 0725671, 2223809, 1175053, 4424642, 01274456, 36594315, 3794601 ####[facility] [address] [place] [address] Creatinine [Mass/Vol] 0.7 mg/dL Normal 0.5-1.3 [facility] Comment on above: Performed By: #### 1 1287572, 3429194, 3615080, 3287882, 7996243, 17661224, 42675272, 7890422 ####[facility] [address] [place] [address] Globulin (S) [Mass/Vol] 3.6 g/dL Normal 1.4-4.0 [facility] Comment on above: Performed By: #### 1 1313022, 1906611, 3673885, 0337381, 0291663, 67255061, 05319077, 7655851 ####[facility] [address] [place] [address] Glucose [Mass/Vol] 124 mg/dL Normal 55-199 [facility] Comment on above: Performed By: #### 1 7717020, 8273378, 3971689, 1983567, 0672384, 37435916, 48005000, 4526065 ####[facility] [address] [place] [address] Potassium [Moles/Vol] 3.9 mmol/L Normal 3.5-5.3 [facility] Comment on above: Performed By: #### 1 2869122, 0028754, 1227877, 7295903, 6696092, 82318529, 96619094, 2968078 ####[facility] [address] [place] [address] Protein [Mass/Vol] 7.8 g/dL Normal 6.0-7.8 [facility] Comment on above: Performed By: #### 1 1727453, 2775675, 1994984, 8001749, 7336222, 37349652, 07629218, 2444437 ####[facility] [address] [place] [address] Sodium [Moles/Vol] 139 mmol/L Normal 135-145 [facility] Comment on above: Performed By: #### 1 8152384, 9423626, 7458923, 7207474, 2853199, 04350368, 66045061, 2171561 ####[facility] [address] [place] [address] Urea nitrogen [Mass/Vol] 13 mg/dL Normal 5-21 [facility] Comment on above: Performed By: #### 1 1300737, 2756193, 3336739, 0006519, 4448225, 76257019, 48480413, 5501568 ####[facility] [address] [place] [address] Urea nitrogen/Creatinine [Mass ratio] 19 No Units Normal 10-20 [facility] Comment on above: Performed By: #### 1 0001286, 8177044, 2241913, 5538044, 2503394, 65642797, 72527546, 3085614 ####[facility] [address] [place] [address] COAGULATIONOrdered By: Nuvia Carrillo on 06-22-2023 aPTT Coag (PPP) [Time] 36.0 s Normal 25.1 - 36.5 second(s) [facility] Auto Coag Comment [...] same coagulation reagent and instrumentation as [facility] [place]. Currently there are no coagulation studies available worldwide for children to 14 days, and no normal ranges. Heparin therapeutic range (represented by Anti-Factor Xa activity of 0.2 - 0.4 U/mL) corresponds to PTT of 56.6 - 109.0 sec. INR Coag (PPP) [Relative time] 0.96 {INR} Invalid Interpretation Code [facility] [place] [facility] Comment on above: Interpretive Data: I NR results are specifically intended to assess patients stabilized on long-term Anticoagulation therapy suggested INR s Less Intensive Anticoagulation 2.0 3.0 Conventional Range 3.0 4.5 PT Coag (PPP) [Time] 10.7 s Normal 9.4 - 1 2.5 second(s) [facility] [place] Auto Coag Comment [...] same coagulation reagent and instrumentation as [facility] [place]. Currently there are no coagulation studies available worldwide for children to 14 days, and no normal ranges. Consent for Treatmenton 05-25 Consent for Treatment [id number]#1.00 TIFF Normal [facility] Consent for Treatment [id number]#1.00T IFF Normal [facility] Discharge Instructionson Discharge Instructions [id number]#1.00 TIFF Normal [facility] ED Clinical Summaryon 2023 ED Clinical Summary Normal [facility] ED Note-Physicianon 06-22-19 ED Note-Physician Normal [facility] Comment on above: Result Comment: Elec tronically Signed By: Susu Lamar PA-C\.br\Date and Time Signed: 06/22/23 15:59 EDT\.br\Electronically Co-Signed By: Nikhil Tubbs DO\.br\Date and Time Co-Signed: 06/22/23 18:54 EDT ED Patient Education Noteon 06-22-2023 ED Patient Education Note Normal [facility] ED Patient Summaryon 024 ED Patient Summary Normal [facility] HEMATOLOGYOrdered By: SYSTEM SYSTEM on [...] Ag IA.rapid Nom (S/P/Bld) Negative Normal Negative [facility] Comment on above: Performed By: #### 8 [id number] ####[address] [place] [address] HIV 1+2 Ab+HIV1 p24 Ag IA Ql Non-Reactive Normal Non-Reactive [facility] Comment on above: Performed By: #### 8 24401362 ####[address] [place] [address] HIV Combo Internal Control Line Reactive Normal Reactive [facility] Comment on above: Performed By: #### 8 71712655 ####[address] [place] [address] HIV-1/2 Ag/Ab Combo Negative for HIV-1 and/or HIV-2 antibodies and HIV-1 p24 antigen. Normal Negative [facility] Influenza A&B Agon Influenzae A Ag Negative Normal Negative [facility] Comment on above: Performed By: #### 1 8405599, [id number] ####[address] [place] [address] Influenzae B Ag Negative Normal Negative [facility] Comment on above: Result Comment: Test sensitivity and specificity vary for age group, specimen type, antigen types, and prevalence of disease. Test results must be evaluated in conjunction with other clinical data available to the physician. Individuals who received nasally administered Influenza A vaccine may have positive test results up to 3 days after vaccination. Performed By: #### 1 1104277, [id number] ####[facility] [address] [place] [address] Lactic Acidon 06-22-2023 Lactic Acid Lvl 1.4 mmol/L Normal 0.5-2.2 [facility] Comment on above: Performed By: #### 1 8294835, 3562262, 8945038, 3616116, 7138700, 52026849, 83638329, 7025708 ####[facility] [address] [place] [address] Lipase Levelon 06-22-2023 Lipase [Catalytic activity/Vol] U/L Low 13-58 [facility] Comment on above: Performed By: #### 1 3046123, 8290066, 9766538, 4600922, 6049847, 35684314, 08158802, 6667673 ####[facility] [address] [place] [address] MICRO OTHER TESTSOrdered By: Allen Hansen on 06-22-2023 Influenzae A Ag Negative (06/22/23 2:59 PM) Normal Negative [facility] [place] Man Sero Influenzae B Ag Negative 2 (06/22/23 2:59 PM) Normal Negative [facility] [place] Man Sero Comment [...] NEG [place] (06/22/23 2:59 PM) Normal [facility] [place] Man Sero Rapid COV Int POS Ctl [place] (06/22/23 2:59 PM) Normal [facility] Sero SARS-CoV+SARS-CoV-2 (COVID-19) Ag IA.rapid Ql (Resp) Not Detected 7 (06/22/23 2:59 PM) Normal Not Detected [facility] [place] Man Sero Comment on above: Interpretive Data: T he [employer] Veritor System for Rapid Detection of SARS-CoV-2 [...] 06-22-2023 Magnesium [Mass/Vol] 1.8 mg/dL Normal 1.3-2.4 [facility] Comment on above: Performed By: #### 1 1872051, 4373811, 5093533, 1836067, 0939127, 71327801, 02609670, 4664511 ####[facility] [address] [place] [address] PT & PTTon 06-22-2023 aPTT Coag (PPP) [Time] 36.0 second(s) Normal 25.1-36.5 [facility] Comment on above: Result Comment: [...] same coagulation reagent and instrumentation as [facility] [place]. Currently there are no coagulation studies available worldwide for children to 14 days, and no normal ranges. Heparin therapeutic range (represented by Anti-Factor Xa activity of 0.2 - 0.4 U/mL) corresponds to PTT of 56.6 - 109.0 sec. Performed By: #### 1 [id number], 1518263, 8886908, 8391099, 0124880, 49682840, 34246157, 4709734 ####[facility] [address] [place] [address] INR Coag (PPP) [Relative time] 0.96 {INR} Invalid Interpretation Code [facility] Comment on above: Result Comment: INR results are specifically intended to assess patients stabilized on long-term Anticoagulation therapy suggested INR?s ?Less Intensive Anticoagulation? 2.0 ? 3.0Conventional Range 3.0 ? 4.5 Performed By: #### 1 7607608, 6401446, 5725141, 8508278, 6526324, 14291914, 44282395, 0952870 ####[facility] [address] [place] [address] PT Coag (PPP) [Time] 10.7 second(s) Normal 9.4-12.5 [facility] Comment on above: Result Comment: [...] same coagulation reagent and instrumentation as [facility] [place]. Currently there are no coagulation studies available worldwide for children to 14 days, and no normal ranges. Performed By: #### 1 3530904, 2683170, 3055105, 6018885, 5051602, 45649184, 39111292, 0191861 ####[facility] [address] [place] [address] Physician Orderon 06-22-2023 Physician Order [id number]#1.00 TIFF Normal [facility] RAD - Preliminary Cat Scan R eporton 06-22-2023 RAD - Preliminary Cat Scan Report [id number]#1.00 TIFF Normal [facility] Rapid COVID Antigen ([facility])on 06-22-2023 Rapid COV Int NEG Ctl Pass Normal [facility] Comment on above: Performed By: #### 1 [id number], [id number] ####[facility] [address] [place] [address] Rapid COV Int POS Ctl Pass Normal [facility] Comment on above: Performed By: #### 1 7169264, [id number] ####[facility] [address] [place] [address] SARS-CoV+SARS-CoV-2 (COVID-19) Ag IA.rapid Ql (Resp) Not detected Normal Not Detected [facility] Comment on above: Result Comment: The BioRestorative Therapiesitor? System for Rapid Detection of SARS-CoV-2 is [...] or revoked sooner. Performed By: #### 1 [id number], [id number] ####[facility] [address] [place] [address] Troponin 0 Hr.on 06-22-2023 Troponin 3.10 pg/mL Low 10.10-27.10 [facility] Comment on above: Result Comment: The 95% CI (Confidence Interval) PPV (Positive Predictive Value) for myocardial infarction in females is 38 pg/mL, in males 51 pg/mL. The results should be used in conjunction with clinical conditions of myocardial infarction.(Access High Sensitivity Troponin I Instructions For Use, [place], October 2017) Performed By: #### 1 1874452, 9691642, 6225818, 4965357, 5724509, 18961962, 42315694, 3710395 ####[facility] [address] [place] [address] UA with Cult Rflxon 06-22-19 24 Color (U) Yellow Normal Yellow [facility] Comment on above: Result Comment: Micr oscopic readings are only performed on those samples that meet specific criteria set forth by [facility]. Performed By: #### 4 [id number] ####[facility] [address] [place] [address] Glucose (U) [Mass/Vol] Negative Normal Negative [facility] Comment on above: Performed By: #### 4 [id number] ####[facility] [address] [place] [address] Ketones Ql (U) Negative Normal Negative [facility] Comment on above: Performed By: #### 4 [id number] ####[facility] [address] [place] [address] UA Blood Negative Normal Negative [facility] Comment on above: Performed By: #### 4 [id number] ####[facility] [address] [place] [address] UA Clarity Clear Normal Clear [facility] Comment on above: Performed By: #### 4 [id number] ####[facility] [address] [place] [address] UA Leuk Est Negative Normal Negative [facility] Comment on above: Performed By: #### 4 [id number] ####[facility] [address] [place] [address] UA Nitrite Negative Normal Negative [facility] Comment on above: Performed By: #### 4 [id number] ####[facility] [address] [place] [address] UA pH 7.0 Invalid Interpretation Code 5.0-9.0 [facility] Comment on above: Performed By: #### 4 [id number] ####[facility] [address] [place] [address] UA Protein Trace Abnormal Negative [facility] Comment on above: Performed By: #### 4 [id number] ####[facility] [address] [place] [address] UA Spec Grav 1.028 Invalid Interpretation Code 1.005-1.030 [facility] Comment on above: Performed By: #### 4 [id number] ####[facility] [address] [place] [address] UA Urobilinogen Negative Normal Negative [facility] Comment on above: Performed By: #### 4 [id number] ####[facility] [address] [place] [address] Urobilinogen (U) [Mass/Vol] Negative Normal Negative [facility] Comment on above: Performed By: #### 4 [id number] ####[facility] [address] [place] [address] UA Spec Desc Clean Catch Normal [facility] Comment on above: Performed By: #### 4 [id number] ####[facility] [address] [place] [address] URINALYSISOrdered By: SYSTEM SYSTEM on 06-22-2023 Color (U) Yellow 1 (06/22/23 3:09 PM) Normal Yellow [facility] SS Comment on above: Interpretive Data: M icroscopic readings are only performed on those samples that meet specific criteria set forth by [facility]. Glucose (U) [Mass/Vol] Negative [...] 06-22-2023 eGFR 108 mL/min/1.73 m2 Normal >=59 [facility] Comment on above: Order Comment: Order added by Discern Expert. Performed By: #### 1 3943387, 4079879, 0750903, 3979585, 2531785, 91183448, 51822837, 8577450 ####[facility] [address] [place] [address] Hepatic function 2000 panelo n 06-17-2023 Albumin BCP dye [Mass/Vol] 4.0 g/dL Normal 3.4-5.0 [facility] Comment on above: Performed By: #### 2 4325-3 ####GIOVANNI BURNETT ([id number])[facility])[address] [place] [address] ALP [Catalytic activity/Vol] 87 U/L Normal 33-110 [facility] Comment on above: Performed By: #### 2 5-3 ####GIOVANNI BURNETT ([id number])[facility] ([facility])[address] [place] [address] ALT With P-5'-P [Catalytic activity/Vol] 18 U/L Normal 7-45 [facility] Comment on above: Result Comment: Katia ents treated with Sulfasalazine may generate falsely decreased results for ALT. Performed By: #### 2 5-3 ####GIOVANNI BURNETT ([id number])[facility] ([facility])[address] [place] [address] AST With P-5'-P [Catalytic activity/Vol] 18 U/L Normal 9-39 [facility] Comment on above: Performed By: #### 2 5-3 ####GIOVANNI BURNETT ([id number])[facility] ([facility])[address] [place] [address] Bilirubin [Mass/Vol] 0.5 mg/dL Normal 0.0-1.2 [facility] Comment on above: Performed By: #### 2 4325-3 ####GIOVANNI BURNETT ([id number])[facility])[address] [place] [address] Bilirubin.direct [Mass/Vol] 0.1 mg/dL Normal 0.0-0.3 [facility] Comment on above: Performed By: #### 2 4325-3 ####GIOVANNI BURNETT ([id number])[facility] ([facility])[address] [place] [address] Protein [Mass/Vol] 7.0 g/dL Normal 6.4-8.2 [facility] Comment on above: Performed By: #### 2 4325-3 ####GIOVANNI BURNETT ([id number])[facility] ([facility])[address] [place] [address] Consent for Treatmenton 05-24 Consent for Treatment [id number]#1.00T IFF Normal [facility] Discharge Instructionson Discharge Instructions [id number]#1.00T IFF Normal [facility] ED Clinical Summaryon 2023 ED Clinical Summary Normal [facility] ED Note-Physicianon 06-15-19 ED Note-Physician Normal [facility] Comment on above: Result Comment: Elec tronically Signed By: Balbina Bryant M.D.\.br\Date and Time Signed: 06/15/23 18:34 EDT ED Patient Education Noteon 06-15-2023 ED Patient Education Note Normal [facility] ED Patient Summaryon 024 ED Patient Summary Normal [facility] Consent for Treatmenton 05-23 Consent for Treatment [id number]#1.00T IFF Normal [facility] Discharge Instructionson Discharge Instructions [id number]#1.00T IFF Normal [facility] ED Clinical Summaryon 2023 ED Clinical Summary Normal [facility] ED Note-Physicianon 06-11-19 ED Note-Physician Normal [facility] Comment on above: Result Comment: Elec tronically Signed By: Elisa Sánchez DO\.rufino\Date and Time Signed: 06/11/23 22:47 EDT ED PROVIDER NOTESon 06-11-19 [facility] Ed Provider Note ED Provider Note: L ast filed note HNO ID: [id number] Author: Allyson Nicole DO Service: ? Author [...] Allyson Nicole DO, 06/11/2023 10:12 AM Normal [facility] ED Patient Education Noteon 06-11-2023 ED Patient Education Note Normal [facility] ED Patient Summaryon 024 ED Patient Summary Normal [facility] ED NOTESon 06-08-2023 [facility] Ed Note ED Note: Last filed note HNO ID: [id number] Author: Munira Perez, RN Service: ? Author Type: Registered Nurse Filed: 06/08/23 6040 Note Text: Registration called for registration as pt has been up for discharge for 20 min. Normal [facility] ED PROVIDER NOTESon 06-08-19 [facility] Ed Provider Note ED Provider Note: L ast filed note HNO ID: [id number] Author: Flex Jansen PA-C Service: Emergency Medicine Author Type: Physician Septic Tank Setter Filed: 06/08/23 8438 Note Text: TRIAGE CHIEF COMPLAINT: Chief Complaint [...] Discussed with attending who did evaluate patient iwmi-tn-zwep, developed plan for pain control here, will be given fentanyl dose here with [place]. Being prescription for Percocet. Encourage rest hydration outpatient follow-up as discussed, close return precautions if symptoms get worse. Did discuss with attending, Allyson Nicole DO, who did evaluate patient bbhh-wr-jcom. Patient otherwise stable at this time, vital signs are stable, patient afebrile, and nontoxic in appearance. Attending physician available for immediate consultation throughout entire patient's stay. Decision to Disposition Home or Admit: Discharge FINAL IMPRESSION: 1. Bilateral low back pain Normal [facility] ED TRIAGEon 06-08-2023 [facility] Ed Triage Note ED Triage Note: Last filed note HNO ID: [id number] Author: Cheryl Joiner RN Service: Emergency Medicine Author Type: Registered Nurse Filed: 06/08/23 8405 Note Text: Pt arrives via triage for complaints of lower back apin. Pt states she has hx of bulging disc and states that she was in the car for a long time and thinks that it aggravated her pain more. Normal [facility] ED Note-Physicianon 06-04-19 ED Note-Physician Normal [facility] Comment on above: Result Comment: Elec tronically Signed By: Landon Tidwell PA-C\.br\Date and Time Signed: 06/03/23 19:41 EDT\.br\Electronically Co-Signed By: Pedro Pablo Fletcher DO\.br\Date and Time Co-Signed: 06/04/23 01:40 EDT Consent for Treatmenton 05-23 Consent for Treatment [id number]#1.00T IFF Normal [facility] Discharge Instructionson Discharge Instructions [id number]#1.0 0TIFF Normal [facility] ED Clinical Summaryon 2023 ED Clinical Summary Normal [facility] ED Patient Education Noteon 06-03-2023 ED Patient Education Note Normal [facility] ED Patient Summaryon 024 ED Patient Summary Normal [facility] Alanine aminotransferase [En zymatic activity/volume] in Serum or PlasmaOrdered By: Deb Carmichael on 06-01-2023 ALT [Catalytic activity/Vol] 14 U/L Normal 7-52 [facility] Comment on above: Performed By: #### L IPASE, HEPATIC, BMP, CBC #### [facility] [address] [place] [address] Albumin [Mass/volume] in Ser um or Plasma by Bromocresol green (BCG) dye binding methoOrdered By: Deb Carmichael on 06-01-2023 Albumin BCG dye [Mass/Vol] 4.2 g/dL 3.5-5.7 [facility] Alkaline phosphatase [Enzyma tic activity/volume] in Serum or PlasmaOrdered By: Deb Carmichael on 06-01-2023 ALP [Catalytic activity/Vol] 69 U/L Normal 34-104 [facility] Comment on above: Performed By: #### L IPASE, HEPATIC, BMP, CBC #### [facility] [address] [place] [address] Aspartate aminotransferase [ Enzymatic activity/volume] in Serum or PlasmaOrdered By: Deb Carmichael on 06-01-2023 AST [Catalytic activity/Vol] 16 U/L Normal 13-39 [facility] Comment on above: Result Comment: PERF ORMED BY: [place] [address] PATHOLOGIST PILLOWCASE CUTTER JASON WILSON M.D. Performed By: #### V BG #### Point of Care testing , Automated basophil %Ordered By: Deb Carmichael on 06-01-2023 Basophils/100 WBC (Bld) 0.4 % Normal . [facility] Comment on above: Performed By: #### L IPASE, HEPATIC, BMP, CBC #### [facility] [address] [place] [address] Automated basophil countOrde red By: Deb Carmichael on 06-01-2023 Basophils (Bld) [#/Vol] 0.0 10*3/uL Normal 0.0-0.2 [facility] Comment on above: Result Comment: PERF ORMED BY: [place] [address] PATHOLOGIST PILLOWCASE CUTTER JASON WILSON M.D. Performed By: #### L IPASE, HEPATIC, BMP, CBC #### [address] Automated blood monocyte cou ntOrdered By: Deb Carmichael on 06-01-2023 Monocytes (Bld) [#/Vol] 0.6 10*3/uL Normal 0.0-0.8 [facility] Comment on above: Performed By: #### L IPASE, HEPATIC, BMP, CBC #### [address] Automated eosinophil %Ordere d By: Deb Carmichael on 06-01-2023 Eosinophils/100 WBC (Bld) 2.6 % Normal . [facility] Comment on above: Performed By: #### L IPASE, HEPATIC, BMP, CBC #### [address] Automated eosinophil countOr dered By: Deb Carmichael on 06-01-2023 Eosinophils (Bld) [#/Vol] 0.3 10*3/uL Normal 0.0-0.45 [facility] Comment on above: Performed By: #### L IPASE, HEPATIC, BMP, CBC #### [address] Automated monocyte %Ordered By: Deb Carmichael on 06-01-2023 Monocytes/100 WBC (Bld) 6.0 % Normal . [facility] Comment on above: Performed By: #### L IPASE, HEPATIC, BMP, CBC #### [address] Automated neutrophil %Ordere d By: Deb Carmichael on 06-01-2023 Neutrophils/100 WBC (Bld) 60.6 % Normal . [facility] Comment on above: Performed By: #### L IPASE, HEPATIC, BMP, CBC #### [address] Automated urine color determ inationOrdered By: PROVIDER TEMP on 06-01-2023 Color (U) Yellow Normal Yellow [facility] Comment on above: Order Comment: Name Collection Type:: Clean-Voided Midstream Performed By: #### U A #### [address] Basic Metabolic Panelon Anion gap [Moles/Vol] Not performed Normal 6.0-15.0 [facility] Comment on above: Performed By: #### U HCG, ADDONUAPLUS #### [address] Creatinine Clr Calc Pharmacy 122.15 Normal [facility] Comment on above: Performed By: #### U HCG, ADDONUAPLUS #### [place] [address] [place] GFR/1.73 sq M.predicted MDRD (S/P/Bld) [Vol rate/Area] mL/min/{1.73_m2} Normal [facility] Comment on above: Performed By: #### U HCG, ADDONUAPLUS #### [address] Potassium Normal 3.5-5.1 [facility] Comment on above: Result Comment: Spec imen hemolyzed, redraw requested Performed By: #### U HCG, ADDONUAPLUS #### [address] Bilirubin Test strip Ql (U)O rdered By: PROVIDER TEMP on 06-01-2023 Bilirubin Ql (U) Negative Negative [facility] Bilirubin.direct [Mass/volum e] in Serum or PlasmaOrdered By: Deb Carmichael on 06-01-2023 Bilirubin.direct [Mass/Vol] 0.10 mg/dL 0.03-0.18 [facility] Bilirubin.total [Mass/volume ] in Serum or PlasmaOrdered By: Deb Carmichael on 06-01-2023 Bilirubin [Mass/Vol] 0.5 mg/dL Normal 0.3-1.0 [facility] Comment on above: Performed By: #### L IPASE, HEPATIC, BMP, CBC #### [facility] [address] [place] [address] [facility] CT abdomen pelvis w conon CT abdomen pelvis w con [facility] [place] [address] [place] [address] CT Scan Report Signed Patient: Jerad Tracy MR#: [id number] 49 : 1975 Acct:[id number] Age/Sex: 48 / F ADM Date: 06/01/23 Loc: ER Room: Type: [facility] ER Attending Dr: Copies to: Deb [...] Idalia Juarez M.D.06/01/2023 3:07 PM Dictation Location: [place] [address] Transcribed By: [facility] 06/01/23 1507 Dictated By: Idalia Juarez MD 06/01/23 1501 Signed By: 06/01/23 1507 Normal [facility] Calcium [Mass/volume] in Ser um or PlasmaOrdered By: Deb Carmichael on 06-01-2023 Calcium [Mass/Vol] 9.0 mg/dL Normal 8.6-10.3 [facility] Comment on above: Performed By: #### U HCG, ADDONUAPLUS #### [address] Carbon dioxide, total [Moles /volume] in Serum or PlasmaOrdered By: Deb Carmichael on 06-01-2023 CO2 [Moles/Vol] 25.6 mmol/L Normal 21.0-31.[address] [facility] Comment on above: Performed By: #### U HCG, ADDONUAPLUS #### [place] [address] [place] Chloride [Moles/volume] in S saw or PlasmaOrdered By: Deb Carmichael on 06-01-2023 Chloride [Moles/Vol] 102 mmol/L Normal 98-107 [facility] Comment on above: Performed By: #### U HCG, ADDONUAPLUS #### [place] [address] [place] Complete Blood Count Auto Di ffon 06-01-2023 Mean Corpuscular HGB Conc 33.9 g/dL Normal 32.0-35.0 [facility] Comment on above: Performed By: #### L IPASE, HEPATIC, BMP, CBC #### [facility] [address] [place] [address] [place] Monocytes/100 WBC (Bld) 18.80 % Normal 0.00-20.00 [facility] Comment on above: Performed By: #### L IPASE, HEPATIC, BMP, CBC #### [facility] [address] [place] [address] [place] NRBC% 0.1 /100{WBC} Normal 0-0.5 [facility] Comment on above: Performed By: #### L IPASE, HEPATIC, BMP, CBC #### [facility] [address] [place] [address] Creatinine [Mass/volume] in Serum or PlasmaOrdered By: Deb Carmichael on 06-01-2023 Creatinine [Mass/Vol] 0.64 mg/dL Normal 0.60-1.20 [facility] Comment on above: Performed By: #### U HCG, ADDONUAPLUS #### [facility] [address] [place] [address] ECG 12 lead ECGon 06-01-2023 ECG 12 lead ECG [facility] [place] [address] [place] [address] Electrocardiograph Report Signed Patient: Jerad Tracy MR#: [id number] 49 : 1975 Acct:[id number] Age/Sex: 48 / F ADM Date: 06/01/23 Loc: ER Room: Type: [facility] ER Attending Dr: Ordering Provider: Deb [...] By: MUS Signed By Vlad Bhandari DO 204 Normal [facility] ED Note-Physicianon 06-01-19 ED Note-Physician Normal [facility] Comment on above: Result Comment: Elec tronically Signed By: Brandon MILES, Robert\.br\Date and Time Signed: 05/31/23 18:10 EST\.br\Electronically Co-Signed By: Jorge Mcintosh DO\.br\Date and Time Co-Signed: 06/01/23 07:39 EST Erythrocyte distribution wid th [Ratio] by Automated countOrdered By: Deb Carmichael on 06-01-2023 Erythrocyte distribution width (RBC) [Ratio] 13.4 % Normal 11.9-15.3 [facility] Comment on above: Performed By: #### L IPASE, HEPATIC, BMP, CBC #### [facility] [address] [place] [address] [place] Erythrocytes [#/volume] in B lood by Automated countOrdered By: Deb Carmichael on 06-01-2023 RBC (Bld) [#/Vol] 4.75 10*6/uL Normal 3.60-5.[address] [facility] Comment on above: Performed By: #### L IPASE, HEPATIC, BMP, CBC #### [place] [address] [place] Glucose [Mass/volume] in Ser um or PlasmaOrdered By: Deb Carmichael on 06-01-2023 Glucose [Mass/Vol] 92 mg/dL Normal 70-100 [facility] Comment on above: ADA recommended refe rence rangeRandom Glucose Reference Range is dependent on time and content of last meal. Glucose of more than 200 mg/dL in a nonstressed, ambulatory subject supports the diagnosis of Diabetes Mellitus. Result Comment: [place] om Glucose Reference Range is dependent on time and content of last meal. Glucose of more than 200 mg/dL in a nonstressed, ambulatory subject supports the diagnosis of Diabetes Mellitus. ADA recommended reference range Performed By: #### U HCG, ADDONUAPLUS #### [facility] [address] [place] [address] [place] Hematocrit [Volume Fraction] of Blood by Automated countOrdered By: Deb Carmichael on 06-01-2023 Hematocrit (Bld) [Volume fraction] 44.7 % Normal 34.0-46.4 [facility] Comment on above: Performed By: #### L IPASE, HEPATIC, BMP, CBC #### [facility] [address] Hemoglobin [Mass/volume] in BloodOrdered By: Deb Carmichael on 06-01-2023 Hemoglobin (Bld) [Mass/Vol] 15.1 g/dL Normal 11.8-15.4 [facility] Comment on above: Performed By: #### L IPASE, HEPATIC, BMP, CBC #### [facility] [address] Hepatic Panelon 06-01-2023 Albumin [Mass/Vol] 4.2 g/dL Normal 3.5-5.7 [facility] Comment on above: Performed By: #### L IPASE, HEPATIC, BMP, CBC #### [facility] [address] [place] [address] Aspartate Amino Transferase Normal 13-39 [facility] Comment on above: Result Comment: Spec imen hemolyzed, redraw requested Performed By: #### L IPASE, HEPATIC, BMP, CBC #### [facility] [address] [place] [address] Bilirubin,Direct Normal 0.03-0.18 [facility] Comment on above: Result Comment: Spec imen hemolyzed, redraw requested Performed By: #### L IPASE, HEPATIC, BMP, CBC #### [facility] [address] [place] [address] Bilirubin,Indirect Not performed Normal [facility] Comment on above: Performed By: #### L IPASE, HEPATIC, BMP, CBC #### [facility] [address] [place] [address] Ketones Auto test strip (U) [Mass/Vol]Ordered By: PROVIDER TEMP on 06-01-2023 Ketones (U) [Mass/Vol] Negative Negative [facility] Leukocytes [#/volume] correc lisa for nucleated erythrocytes in Blood by Automated counOrdered By: Deb Carmichael on 06-01-2023 WBC corrected for nucl RBC Auto (Bld) [#/Vol] 10.7 10*3/uL 3.8-11.6 [facility] Leukocytes [#/volume] in Blo od by Automated countOrdered By: Deb Carmichael on 06-01-2023 WBC (Bld) [#/Vol] 10.7 10*3/uL Normal 3.8-11.[address] [facility] Comment on above: Performed By: #### L IPASE, HEPATIC, BMP, CBC #### [address] [address] Lipase [Enzymatic activity/v olume] in Serum or PlasmaOrdered By: Deb Carmichael on 06-01-2023 Lipase [Catalytic activity/Vol] 13.0 U/L Normal 11.0-82.0 [facility] Comment on above: Result Comment: PERF ORMED BY: [place] [address] PATHOLOGIST PILLOWCASE CUTTER JASON WILSON M.D. Performed By: #### U HCG, ADDONUAPLUS #### [place] [address] [place] Lymphocytes [#/volume] in Bl ood by Automated countOrdered By: Deb Carmichael on 06-01-2023 Lymphocytes (Bld) [#/Vol] 3.2 10*3/uL Normal 1.00-4.8 [facility] Comment on above: Performed By: #### L IPASE, HEPATIC, BMP, CBC #### [place] [address] [place] Lymphocytes/100 leukocytes i n Blood by Automated countOrdered By: Deb Carmichael on 06-01-2023 Lymphocytes/100 WBC (Bld) 30.4 % Normal . [facility] Comment on above: Performed By: #### L IPASE, HEPATIC, BMP, CBC #### [facility] [address] [place] [address] [place] MCH [Entitic mass] by Automa lisa countOrdered By: Deb Carmichael on 06-01-2023 MCH (RBC) [Entitic mass] 31.8 pg Normal 24.7-34.3 [facility] Comment on above: Performed By: #### L IPASE, HEPATIC, BMP, CBC #### [facility] [address] [place] [address] MCHC Auto (RBC) [Mass/Vol]Or dered By: Deb Carmichael on 06-01-2023 MCHC (RBC) [Mass/Vol] 33.9 g/dL 32.0-35.0 [facility] MCV [Entitic volume] by Auto mated countOrdered By: Deb Carmichael on 06-01-2023 MCV (RBC) [Entitic vol] 94.0 fL Normal 80-100 [facility] Comment on above: Performed By: #### L IPASE, HEPATIC, BMP, CBC #### [facility] [address] Monocyte distribution width [Entitic volume] in Blood by AutomatedOrdered By: Deb Carmichael on 06-01-2023 Monocyte distribution width Auto (Bld) [Entitic vol] 18.80 % 0.00-20.00 [facility] Neutrophils [#/volume] in Bl ood by Automated countOrdered By: Deb Carmichael on 06-01-2023 Neutrophils (Bld) [#/Vol] 6.5 10*3/uL Normal 1.8-7.7 [facility] Comment on above: Performed By: #### L IPASE, HEPATIC, BMP, CBC #### [facility] [address] Nitrite Test strip Ql (U)Ord ered [...] Company Comment on above: Performed By: #### L IPASE, HEPATIC, BMP, CBC #### [facility] [address] Platelets [#/volume] in Bloo d by Automated countOrdered By: Deb Carmichael on 06-01-2023 Platelets (Bld) [#/Vol] 311 10*3/uL Normal 150-450 [facility] Comment on above: Performed By: #### L IPASE, HEPATIC, BMP, CBC #### [facility] [address] Potassium [Moles/volume] in Serum or PlasmaOrdered By: Deb Carmichael on 06-01-2023 Potassium [Moles/Vol] 4.2 mmol/L Normal 3.5-5.1 [facility] Comment on above: Performed By: #### V BG #### Point of Care testing , Protein Auto test strip (U) [Mass/Vol]Ordered By: MOLLY TEMP on 06-01-2023 Protein (U) [Mass/Vol] Negative Negative [facility] Protein [Mass/volume] in Ser um or PlasmaOrdered By: Deb Carmichael on 06-01-2023 Protein [Mass/Vol] 7.9 g/dL Normal 6.4-8.9 [facility] Comment on above: Performed By: #### L IPASE, HEPATIC, BMP, CBC #### [facility] [address] [place] [address] Redraw Bilirubin,Directon Redraw Bilirubin,Direct 0.10 mg/dL Normal 0.03-0.18 [facility] Comment on above: Performed By: #### V BG #### Point of Care testing , Serum globulin measurement b y calculation (mass/volume)Ordered By: Deb Carmichael on 06-01-2023 Globulin (S) [Mass/Vol] 3.7 g/dL Normal [facility] Comment on above: Performed By: #### L IPASE, HEPATIC, BMP, CBC #### [facility] [address] [place] [address] Serum or plasma albumin/glob ulin mass ratioOrdered By: Deb Carmichael on 06-01-2023 Albumin/Globulin [Mass ratio] 1.1 {ratio} Normal [facility] Comment on above: Performed By: #### L IPASE, HEPATIC, BMP, CBC #### [facility] [address] [place] [address] Serum or plasma anion gap de terminationOrdered By: Deb Carmichael on 06-01-2023 Anion gap [Moles/Vol] TNP [facility] Comment on above: Test not performed Serum or plasma non-glucuron idated bilirubin measurement (mass/volume)Ordered By: Deb Carmichael on 06-01-2023 Bilirubin.indirect [Mass/Vol] TNP [facility] Comment on above: Test not performed Sodium [Moles/volume] in Ser um or PlasmaOrdered By: Deb Carmichael on 06-01-2023 Sodium [Moles/Vol] 136 mmol/L Normal 136-145 [facility] Comment on above: Performed By: #### U HCG, ADDONUAPLUS #### [facility] [address] [place] [address] Specific gravity Auto test s trip (U) [Rel density]Ordered By: MOLLY KURTZ on 06-01-2023 Specific gravity (U) [Rel density] 1.015 1.001-1.030 [facility] Troponin I High Sensitivityo n 06-01-2023 Troponin I High Sensitivity 3.5 pg/mL Normal 0.0-15.0 [facility] Comment on above: Result Comment: PERF ORMED BY: [place] [address] PATHOLOGIST PILLOWCASE CUTTER JASON WILSON M.D. Performed By: #### C MP, CUBLD, CBC #### [facility] [address] [place] [address] Troponin I.cardiac [Mass/vol ume] in Serum or Plasma by Detection limit <= 0.01 ng/Ordered By: Deb Carmichael on 06-01-2023 Troponin I.cardiac DL <= 0.01 ng/mL [Mass/Vol] 3.5 pg/mL 0.0-15.0 [facility] Urea nitrogen [Mass/volume] in Serum or PlasmaOrdered By: Deb Carmichael on 06-01-2023 Urea nitrogen [Mass/Vol] 18 mg/dL Normal 7-25 [facility] Comment on above: Performed By: #### U HCG, ADDONUAPLUS #### [place] [address] [place] Urinalysison 06-01-2023 Appearance (U) Clear Normal Clear [facility] Comment on above: Order Comment: Name Collection Type:: Clean-Voided Midstream Performed By: #### U A #### [place] [address] [place] Bilirubin,Urine Negative Normal Negative [facility] Comment on above: Order Comment: Name Collection Type:: Clean-Voided Midstream Performed By: #### U A #### [place] [address] [place] Glucose Ql (U) Normal Normal Normal [facility] Comment on above: Order Comment: Name Collection Type:: Clean-Voided Midstream Performed By: #### U A #### [address] Ketones Ql (U) Negative Normal Negative [facility] Comment on above: Order Comment: Name Collection Type:: Clean-Voided Midstream Performed By: #### U A #### [place] [address] [place] Leukocyte esterase Test strip Ql (U) Negative Normal Negative [facility] Comment on above: Order Comment: Name Collection Type:: Clean-Voided Midstream Performed By: #### U A #### [place] [address] [place] Nitrite,Urine Negative Normal Negative [facility] Comment on above: Order Comment: Name Collection Type:: Clean-Voided Midstream Performed By: #### U A #### [place] [address] [place] Occult Blood,Urine Negative Normal Negative [facility] Comment on above: Order Comment: Name Collection Type:: Clean-Voided Midstream Result Comment: PERF ORMED BY: [place] [address] PATHOLOGIST PILLOWCASE CUTTER JASON WILSON M.D. Performed By: #### U A #### [facility] [address] [place] [address] Protein,Urine Negative Normal Negative [facility] Comment on above: Order Comment: Name Collection Type:: Clean-Voided Midstream Performed By: #### U A #### [address] Specificy Jamul,Urine 1.015 Normal 1.001-1.030 [facility] Comment on above: Order Comment: Name Collection Type:: Clean-Voided Midstream Performed By: #### U A #### [address] Urobilinogen,Urine Normal Normal Normal [facility] Comment on above: Order Comment: Name Collection Type:: Clean-Voided Midstream Performed By: #### U A #### [address] Urine clarity by refractomet ry automatedOrdered [...] Midstream Performed By: #### U A #### [address] Urobilinogen Auto test strip (U) [Mass/Vol]Ordered By: PROVIDER TESSIE on 06-01-2023 Urobilinogen (U) [Mass/Vol] Normal mg/dL Normal [facility] XR chest 2V*on 06-01-2023 XR chest 2V* [facility] [place] [address] [place] [address] XRay Report Signed Patient: Jerad Tracy MR#: [id number] 49 : 1975 Acct:[id number] Age/Sex: 48 / F ADM Date: 06/01/23 Loc: ER Room: Type: [facility] ER Attending Dr: Copies to: Deb [...] Idalia Juarez M.D.06/01/2023 5:24 PM Dictation Location: [place] [address] Transcribed By: [facility] 06/01/23 172 Dictated By: Idalia Juarez MD 06/01/23 172 Signed By: 06/01/23 172 Normal [facility] BMPOrdered By: SYSTEM SYSTEM on 05-31-2023 Anion gap [Moles/Vol] 11 mmol/L Normal 6-16 Rem isol Chem Comment on above: Performed By: #### 1 7512126, 1015163, 7106298, 8351632, 3374837, 86907636 ####[facility] [address] [place] [address] Calcium [Mass/Vol] 9.0 mg/dL Normal 8.9-11.1 [facility] Comment on above: Performed By: #### 1 9920871, 9020972, 6880196, 8692621, 8517514, 29408496 ####[facility] [address] [place] [address] Chloride [Moles/Vol] 104 mmol/L Normal 101-111 [facility] Comment on above: Performed By: #### 1 0557572, 0677148, 0087810, 7003225, 1208596, 61870833 ####[facility] [address] [place] [address] CO2 [Moles/Vol] 27 mmol/L Normal 21-31 [facility] Comment on above: Performed By: #### 1 4365925, 7653127, 3463062, 4423378, 1230707, 37005187 ####[facility] [address] [place] [address] Creatinine [Mass/Vol] 0.7 mg/dL Normal 0.5-1.3 Rem isol Chem Comment on above: Performed By: #### 1 0985109, 2248500, 8306582, 6995652, 2166709, 35328535 ####[facility] [address] [place] [address] Glucose [Mass/Vol] 97 mg/dL Normal 55-199 [facility] Comment on above: Performed By: #### 1 3689683, 5153108, 6380523, 0278529, 3379739, 54685601 ####[facility] [address] [place] [address] Potassium [Moles/Vol] 3.7 mmol/L Normal 3.5-5.3 Rem isol Chem Comment on above: Performed By: #### 1 5792490, 1443875, 8209209, 6426380, 5456180, 79214115 ####[facility] [address] [place] [address] Sodium [Moles/Vol] 138 mmol/L Normal 135-145 [facility] Comment on above: Performed By: #### 1 7479105, 8320853, 4312823, 4961961, 7492748, 69032649 ####[place] [address] [place] [address] Urea nitrogen [Mass/Vol] 15 mg/dL Normal 5-21 [facility] Comment on above: Performed By: #### 1 8019858, 4096161, 6226149, 0469861, 3114960, 06885248 ####[address] [address] BMPon 05-31-2023 Urea nitrogen/Creatinine [Mass ratio] 21 No Units High 10-20 [facility] Comment on above: Performed By: #### 1 0302510, 3789552, 1369016, 9631204, 5071569, 75571236 ####[address] [address] CBC w/ Auto DiffOrdered By: SYSTEM SYSTEM on 05-31-2023 Basophils/100 WBC (Bld) 0.5 % Normal 0.0-2.0 [facility] Comment on above: Performed By: #### 1 8026386, 0955135, 4930914, 7110141, 0047482, 02879115 ####[address] [address] Basophils/Leukocytes Auto (Bld) [Pure # fraction] 0.1 E9/L Normal 0.0-0.2 [facility] Comment on above: Performed By: #### 1 5208080, 4179838, 1945082, 4592760, 7016623, 08701845 ####[address] [address] Eosinophils (Bld) [#/Vol] 0.2 E9/L Normal 0.0-0.5 [facility] Comment on above: Performed By: #### 1 4727637, 7316093, 0067344, 6423107, 7717734, 78919902 ####[address] [address] Eosinophils/100 WBC (Bld) 2.1 % Normal 0.0-8.0 [facility] Comment on above: Performed By: #### 1 0115961, 5798539, 7907083, 4454049, 2912393, 48480699 ####[facility] [address] [address] Erythrocyte distribution width (RBC) [Ratio] 13.4 % Normal 10.9-14.2 [facility] Comment on above: Performed By: #### 1 7707195, 0831789, 7090633, 3184622, 0410438, 74129110 ####[place] [address] Hematocrit (Bld) [Volume fraction] 41.8 % Normal 34.0-46.0 [facility] Comment on above: Performed By: #### 1 2088755, 5186465, 3302825, 4830140, 6088047, 71091743 ####[facility] [address] [address] Hemoglobin (Bld) [Mass/Vol] 13.9 g/dL Normal 12.0-16.0 [facility] Comment on above: Performed By: #### 1 4524106, 7341686, 1896725, 3571836, 8655321, 30828171 ####[address] [address] Lymphocytes (Bld) [#/Vol] 3.6 E9/L Normal 1.0-4.0 [facility] Comment on above: Performed By: #### 1 2156629, 0715039, 8441209, 5850838, 1095097, 34620913 ####[address] [address] Lymphocytes/100 WBC (Bld) 32.1 % Normal 14.0-50.0 [facility] Comment on above: Performed By: #### 1 6322349, 5411354, 2690663, 0911164, 7178375, 55233163 ####[address] [address] MCH (RBC) [Entitic mass] 31.4 pg Normal 27.0-34.0 [facility] Comment on above: Performed By: #### 1 2654964, 4795040, 5449996, 8594147, 0775769, 53539888 ####[address] [address] MCHC (RBC) [Mass/Vol] 33.3 g/dL Normal 31.4-36.0 Rem isol [facility] Comment on above: Performed By: #### 1 3668660, 1501751, 4310690, 9529500, 6596026, 83771310 ####[place] [address] MCV (RBC) [Entitic vol] 94.1 fL Normal 80.0-100.0 [facility] Comment on above: Performed By: #### 1 7850717, 6716692, 6572109, 9989614, 8007848, 52212279 ####[place] [address] Monocytes (Bld) [#/Vol] 0.6 E9/L Normal 0.2-1.0 [facility] Comment on above: Performed By: #### 1 5037217, 7666042, 3754604, 4402411, 0892581, 87571020 ####[place] [address] Neutrophils (Bld) [#/Vol] 6.8 E9/L Normal 2.0-7.5 [facility] Comment on above: Performed By: #### 1 3901827, 9582549, 3625841, 2395275, 1455900, 44029552 ####[place] [address] Neutrophils/100 WBC (Bld) 59.6 % Normal 36.0-75.0 [facility] Comment on above: Performed By: #### 1 4941016, 6932286, 5256094, 8351584, 0838093, 18488749 ####[facility] [address] [place] [address] Platelet mean volume (Bld) [Entitic vol] 9.2 fL Normal 6.4-10.8 [facility] Comment on above: Performed By: #### 1 3221351, 2658958, 3506022, 2355299, 5891375, 57514990 ####[place] [address] Platelets (Bld) [#/Vol] 271.0 E9/L Normal 150.0-500.0 [facility] Comment on above: Performed By: #### 1 3389723, 3303719, 5540763, 3173906, 9593541, 74994641 ####[place] [address] [address] RBC (Bld) [#/Vol] 4.4 E12/L Normal 4.3-5.9 [facility] Comment on above: Performed By: #### 1 4080486, 0647779, 2886077, 0641277, 9391300, 53994974 ####[place] [address] [address] WBC corrected for nucl RBC Auto (Bld) [#/Vol] 11.4 E9/L High 4.0-11.0 [facility] Comment on above: Performed By: #### 1 4492463, 4894955, 2323838, 4000616, 1336012, 70724648 ####[place] [address] [address] CHEMISTRYOrdered By: SYSTEM SYSTEM on 05-31-2023 Albumin/Globulin [...] s Normal 25.1 - 36.5 second(s) [facility] Auto Coag Comment [...] same coagulation reagent and instrumentation as [facility]. Currently there are no coagulation studies available worldwide for children to 14 days, and no normal ranges. Heparin therapeutic range (represented by Anti-Factor Xa activity of 0.2 - 0.4 U/mL) corresponds to PTT of 56.6 - 109.0 sec. PT Coag (PPP) [Time] 10.8 s Normal 9.4 - 1 2.5 second(s) [facility] Auto Coag Comment [...] same coagulation reagent and instrumentation as [facility]. Currently there are no coagulation studies available worldwide for children to 14 days, and no normal ranges. Consent for Treatmenton Consent for Treatment [id number] IFF Normal [facility] Discharge Instructionson Discharge Instructions [id number] TIFF Normal [facility] ED Clinical Summaryon 2023 ED Clinical Summary Normal [facility] ED Patient Education Noteon 05-31-2023 ED Patient Education Note Normal [facility] ED Patient Summaryon 024 ED Patient Summary Normal [facility] HEMATOLOGYOrdered By: SYSTEM SYSTEM on 05-31-2023 Monocytes/100 WBC (Bld) 5.7 % Normal 4.0 - 14.0 % [facility] Hep Func PanelOrdered By: Radario SYSTEM on 05-31-2023 Albumin [Mass/Vol] 4.1 g/dL Normal 3.3-5.0 [facility] Comment on above: Performed By: #### 1 6864675, 1739636, 1770079, 6360082, 4456614, 01888616 ####[facility] [address] [place] [address]57 Bilirubin [Mass/Vol] 0.4 mg/dL Normal 0.0-1.1 [facility] Comment on above: Performed By: #### 1 7226864, 8641334, 1510014, 4851130, 5535436, 97405145 ####[facility] [address] [place] [address] Bilirubin.direct [Mass/Vol] 0.1 mg/dL Normal 0.0-0.4 [facility] Comment on above: Performed By: #### 1 9036685, 9802717, 9140713, 4998115, 8428370, 93486290 ####[facility] [address] [place] [address] Bilirubin.indirect [Mass or moles/Vol] 0.3 mg/dL Normal 0.1-0.9 [facility] Comment on above: Performed By: #### 1 8134969, 9859079, 8655798, 7772880, 3611178, 14117682 ####[facility] [address] [place] [address] Globulin (S) [Mass/Vol] 3.1 g/dL Normal 1.4-4.0 [facility] Comment on above: Performed By: #### 1 6339263, 3764186, 1887400, 0440772, 1375173, 45145636 ####[address] [address] Protein [Mass/Vol] 7.2 g/dL Normal 6.0-7.8 [facility] Comment on above: Performed By: #### 1 9256570, 1886743, 4602165, 2999144, 4174577, 21966160 ####[address] [address] Hep Func Panelon 05-31-2023 Albumin/Globulin (S) [Mass conc ratio] 1.3 Normal 1.1-2.2 [facility] Comment on above: Performed By: #### 1 3660674, 0931199, 3182225, 6882984, 9681777, 47678043 ####[address] [address] ALP [Catalytic activity/Vol] 72 Int._Unit/L Normal 21-98 [facility] Comment on above: Performed By: #### 1 2174217, 2873548, 2782536, 2312810, 1570758, 04753522 ####[place] [address] [place] [address] ALT No additional P-5'-P [Catalytic activity/Vol] 13 Int._Unit/L Normal 6-46 [facility] Comment on above: Performed By: #### 1 8630565, 3241805, 0606812, 7865274, 3664323, 08552906 ####[facility] [address] [place] [address] AST [Catalytic activity/Vol] 14 Int._Unit/L Normal 5-43 [facility] Comment on above: Performed By: #### 1 5618465, 0570369, 6106807, 0374933, 9589734, 63695401 ####[facility] [address] [place] [address] Lipase LevelOrdered By: [employer] SYSTEM on 05-31-2023 Lipase [Catalytic activity/Vol] 10 U/L Low 13-58 [facility] Comment on above: Performed By: #### 1 4806804, 1675258, 0743685, 8650149, 9008574, 60218558 ####[facility] [address] [place] [address] PT & PTTon 05-31-2023 aPTT Coag (PPP) [Time] 33.3 second(s) Normal 25.1-36.5 [facility] Comment on above: Result Comment: [...] same coagulation reagent and instrumentation as [facility]. Currently there are no coagulation studies available worldwide for children to 14 days, and no normal ranges. Heparin therapeutic range (represented by Anti-Factor Xa activity of 0.2 - 0.4 U/mL) corresponds to PTT of 56.6 - 109.0 sec. Performed By: #### 1 0739341, 4785273, 2103289, 2290473, 1402231, 58702426 ####[facility] [address] [place] [address] PT Coag (PPP) [Time] 10.8 second(s) Normal 9.4-12.5 [facility] Comment on above: Result Comment: [...] same coagulation reagent and instrumentation as [facility]. Currently there are no coagulation studies available worldwide for children to 14 days, and no normal ranges. Performed By: #### 1 8830179, 6362457, 5458664, 2331094, 8504866, 95908789 ####[facility] [address] [place] [address] PT & PTTOrdered By: Zoë lucero on 05-31-2023 INR Coag (PPP) [Relative time] 0.96 {INR} Invalid Interpretation Code [facility] Auto Coag Comment [...] 3.0 ? 4.5 Performed By: #### 1 8773335, 3410128, 4099720, 5559557, 2172921, 23535969 ####[facility] [address] [place] [address] UA With Cult Reflexon 2023 Bacteria LM Ql (Urine sed) TRACE Normal Trace [facility] Comment on above: Performed By: #### 1 3441444 ####[facility] [address] [place] [address] Bilirubin Ql (U) Negative Normal Negative [facility] Comment on above: Performed By: #### 1 2891189 ####[facility] [address] [place] [address] Clarity (U) CLOUDY Abnormal Clear [facility] Comment on above: Performed By: #### 1 9090111 ####[facility] [address] [place] [address] Color (U) YELLOW Normal Yellow [facility] Comment on above: Performed By: #### 1 5754379 ####[facility] [address] [place] [address], [place] [address] Crystals LM Ql (Urine sed) Present Normal [facility] Comment on above: Performed By: #### 1 3700845 ####[address] [address] Epithelial cells.squamous LM.HPF (Urine sed) [#/Area] 0-2 Normal 0-[address] [facility] Comment on above: Performed By: #### 1 3840607 ####[address] [address] Glucose Test strip (U) [Mass/Vol] Negative Normal Negative [facility] Comment on above: Performed By: #### 1 4554735 ####[address] [address] Hemoglobin Ql (U) Negative Normal Negative [facility] Comment on above: Performed By: #### 1 1632505 ####[facility] [address] [place] [address] Ketones (U) [Mass/Vol] Negative Normal Negative Fi [facility] Comment on above: Performed By: #### 1 1186847 ####[facility] [address] [place] [address] [place].plasma/[place] .RBC (Bld) [Mass ratio] 0-3 Normal 0-3 [facility] Comment on above: Performed By: #### 1 6004186 ####[facility] [address] [place] [address] Nitrite Ql (U) Negative Normal Negative [facility] Comment on above: Performed By: #### 1 2898689 ####[address] [address] pH (U) 8.0 [pH] Invalid Interpretation Code 5.0-9.0 [facility] Comment on above: Performed By: #### 1 5842192 ####[address] [address] Protein (U) [Mass/Vol] Negative Normal Negative [facility] Comment on above: Performed By: #### 1 9901634 ####[address] [address] Specific gravity (U) [Rel density] 1.015 Invalid Interpretation Code 1.005-1.030 [facility] Comment on above: Performed By: #### 1 0806045 ####[address] [address] Type of Urine collection method Clean Catch Normal [facility] Comment on above: Performed By: #### 1 6567659 ####[address] [address] Urobilinogen Qn (U) 0.2 {Jan'U}/dL Normal 0.0-1.0 [facility] Comment on above: Performed By: #### 1 8242403 ####[address] [address] WBC Auto Ql (U) Negative Normal Negative [facility] Comment on above: Performed By: #### 1 1583450 ####[address] [address] WBC LM.HPF (Urine sed) [#/Area] 0-5 Normal 0-5 [facility] Comment on above: Performed By: #### 1 7091958 ####[address] [address] URINALYSISOrdered By: Zoë gordon on 05-31-2023 Bacteria LM Ql (Urine sed) Trace /HPF Normal Trace/HPF [facility] UA Auto SS Bilirubin Ql (U) Negative [...] PM) Normal Negative [facility] UA Auto SS [place].plasma/[place] .RBC (Bld) [Mass ratio] 0-3 /HPF Normal [...] [facility] UA Auto SS Urobilinogen Qn (U) 0.7390179 {Jan'U}/dL Normal 0.0 - 1.0 EU/dL [facility] [...] by Discern Expert. Performed By: #### 1 7281285, 3955467, 9077554, 7332362, 3191334, 10737965 ####[facility] [address] [place] [address] ED Note-Physicianon 05-27-19 ED Note-Physician Normal [facility] Comment on above: Result Comment: Elec tronically Signed By: Susu Lamar PA-C\.br\Date and Time Signed: 05/26/23 21:33 EST\.br\Electronically Co-Signed By: Pedro Pablo Fletcher DO\.br\Date and Time Co-Signed: 05/27/23 00:01 EST Consent for Treatmenton Consent for Treatment [id number]#1.00T IFF Normal [facility] ED Clinical Summaryon 2023 ED Clinical Summary Normal [facility] ED Patient Education Noteon 05-26-2023 ED Patient Education Note Normal [facility] ED Patient Summaryon 024 ED Patient Summary Normal [facility] UA With Cult Reflexon 2023 Bilirubin Ql (U) Negative Normal Negative [facility] Comment on above: Performed By: #### 1 [id number] ####[facility] [address] 8175557 Clarity (U) CLEAR Normal Clear [facility] Comment on above: Performed By: #### 1 [id number] ####[facility] [address] [place] [address] Color (U) YELLOW Normal Yellow [facility] Comment on above: Performed By: #### 1 [id number] ####[facility] [address] [place] [address] Epithelial cells.squamous LM.HPF (Urine sed) [#/Area] 0-2 Normal 0-[address] [facility] Comment on above: Performed By: #### 1 [id number] ####[address] [address] Glucose Test strip (U) [Mass/Vol] Negative Normal Negative [facility] Comment on above: Performed By: #### 1 8017424 ####[address] [address] Hemoglobin Ql (U) Negative Normal Negative [facility] Comment on above: Performed By: #### 1 3780733 ####[address] [address] Ketones (U) [Mass/Vol] Negative Normal Negative [facility] Comment on above: Performed By: #### 1 1722725 ####[address] [address] [place].plasma/[place] .RBC (Bld) [Mass ratio] 0-3 Normal 0-3 [facility] Comment on above: Performed By: #### 1 6101398 ####[address] [address] Nitrite Ql (U) Negative Normal Negative [facility] Comment on above: Performed By: #### 1 2957429 ####[address] [address] pH (U) 6.5 [pH] Invalid Interpretation Code 5.0-9.0 [facility] Comment on above: Performed By: #### 1 7952587 ####[address] [address] Protein (U) [Mass/Vol] Negative Normal Negative [facility] Comment on above: Performed By: #### 1 9323731 ####[address] [address] Specific gravity (U) [Rel density] 1.020 Invalid Interpretation Code 1.005-1.030 [facility] Comment on above: Performed By: #### 1 2444549 ####[address] [address] Type of Urine collection method Clean Catch Normal [facility] Comment on above: Performed By: #### 1 6920621 ####[facility] [address] [place] [address] Urobilinogen Qn (U) 0.2 {Jan'U}/dL Normal 0.0-1.0 [facility] Comment on above: Performed By: #### 1 1350072 ####[facility] [address] [place] [address] WBC Auto Ql (U) Negative Normal Negative [facility] Comment on above: Performed By: #### 1 8517232 ####[facility] [address] [place] [address] WBC LM.HPF (Urine sed) [#/Area] 0-5 Normal 0-5 [facility] Comment on above: Performed By: #### 1 1917525 ####[facility] [address] [place] [address] URINALYSISOrdered By: Alfonso Hernandez on 05-26-2023 Bilirubin [...] PM) Normal Negative [facility] UA Auto SS [place].plasma/[place] .RBC (Bld) [Mass ratio] 0-3 /HPF Normal 0-3/HPF [facility] UA Auto SS Nitrite Ql (U) Negative (05/26/23 8:20 PM) Normal Negative [facility] UA Auto SS pH (U) 6.5 *NA* (05/26/23 8:20 PM) Invalid Interpretation Code 5.0 - 9.0 [facility] UA Auto SS Protein (U) [Mass/Vol] Negative (05/26/23 8:20 PM) Normal Negative [facility] [place] UA Auto SS Specific gravity (U) [Rel density] 1.020 *NA* (05/26/23 8:20 PM) Invalid Interpretation Code 1.005 - 1.030 [facility] [place] UA Auto SS UA Spec Desc Clean Catch (05/26/23 8:20 PM) Normal [facility] UA Auto SS Urobilinogen Qn (U) 0.2982832 {Jna'U}/dL Normal 0.0 - 1.0 EU/dL [facility] [place] UA Auto SS WBC Auto Ql (U) Negative (05/26/23 8:20 PM) Normal Negative [facility] [place] UA Auto SS WBC LM.HPF (Urine sed) [#/Area] 0-5 /HPF Normal 0-5/HPF [facility] [place] UA Auto SS ED Note-Physicianon 05-25-19 ED Note-Physician Normal [facility] Comment on above: Result Comment: Elec tronically Signed By: Landon Tidwell PA-C\.br\Date and Time Signed: 05/24/23 23:15 EST\.br\Electronically Co-Signed By: Pedro Pablo Fletcher DO\.br\Date and Time Co-Signed: 05/25/23 01:59 EST XR Spine Lumbosacral 2 or 3 Viewson 05-25-2023 XR Spine Lumbosacral 2 or 3 Views Normal [facility] Consent for Treatmenton Consent for Treatment [id number]#1.00T IFF Normal [facility] Discharge Instructionson Discharge Instructions [id number]#1.00TI FF Normal [facility] ED Clinical Summaryon 2023 ED Clinical Summary Normal [facility] ED Patient Education Noteon 05-24-2023 ED Patient Education Note Normal [facility] ED Patient Summaryon ED Patient Summary Normal [facility] Hand / UE Inj/Asp: R natividad C MCon 05-20-2023 Belkis Hernandez, 05/20/2023 9:07 AM Hand / UE Inj/Asp: [...] to verify the correct patient, procedure, equipment, personal support worker and site/side marked as required. Patient was prepped and draped in the usual sterile fashion. [facility] Work Phone: [facility] Work Phone: XR WRIST RIGHT 3+ VIEWSon XR WRIST RIGHT 3+ VIEWS Interpreted By: Belkis Hernandez, STUDY: XR WRIST RIGHT 3+ VIEWS; ; 05/20/2023 8:00 am INDICATION: Signs/Symptoms:Pain. ACCESSION NUMBER(S): [id number] ORDERING CLINICIAN: BELKIS HERNANDEZ FINDINGS: X-rays of the right wrist show no acute fracture or dislocation. Right thumb [facility] arthritis. Signed by: Belkis Hernandez 05/20/2023 3:12 PM Dictation workstation: [id number] [facility] ED Note-Physicianon 05-17-19 ED Note-Physician Normal [facility] Comment on above: Result Comment: Elec tronically Signed By: Robert Taylor PA-C\.br\Date and Time Signed: 05/14/23 11:56 EST\.br\Electronically Co-Signed By: Jorge Mcintosh DO\.br\Date and Time Co-Signed: 05/17/23 08:07 EST [facility] Documentson 05-17-2023 [facility] Documents [id number]#1.0 0TIFF [facility] Consent for Treatmenton 04-26 Consent for Treatment [id number]#1.00T IFF [facility] Discharge Instructionson Discharge Instructions [id number]#1.00T IFF Normal [facility] ED Clinical Summaryon 2023 ED Clinical Summary Normal [facility] ED Note-Physicianon 05-16-19 ED Note-Physician Normal [facility] Comment on above: Result Comment: Elec tronically Signed By: Robert Taylor PA-C\.br\Date and Time Signed: 05/16/23 16:54 EST\.br\Electronically Co-Signed By: Nikhil Tubbs DO\.br\Date and Time Co-Signed: 05/16/23 17:00 EST ED Patient Education Noteon 05-16-2023 ED Patient Education Note Normal [facility] ED Patient Summaryon 024 ED Patient Summary Normal [facility] Consent for Treatmenton 04-26 Consent for Treatment [id number]#1.00T IFF Normal [facility] Discharge Instructionson Discharge Instructions [id number]#1.0 0TIFF Normal [facility] ED Clinical Summaryon 2023 ED Clinical Summary Normal [facility] ED Patient Education Noteon 05-14-2023 ED Patient Education Note Normal [facility] ED Patient Summaryon ED Patient Summary Normal [facility] ED Note-Physicianon 05-13-19 ED Note-Physician Normal [facility] Comment on above: Result Comment: Elec tronically Signed By: Landon Tidwell PA-C\.br\Date and Time Signed: 05/11/23 17:24 EST\.br\Electronically Co-Signed By: Jorge Mcintosh DO\.br\Date and Time Co-Signed: 05/13/23 07:06 EST Consent for Treatmenton 04-25 Consent for Treatment [id number]#1.00T IFF Normal [facility] Discharge Instructionson Discharge Instructions [id number]#1.00 TIFF Normal [facility] ED Clinical Summaryon 2023 ED Clinical Summary Normal [facility] ED Note-Physicianon 05-12-19 ED Note-Physician [facility] Comment on above: Result Comment: Elec tronically Signed By: Nikhil Tubbs DO.br\Date and Time Signed: 05/12/23 11:06 EST ED Patient Education Noteon 05-12-2023 ED Patient Education Note Normal [facility] ED Patient Summaryon 024 ED Patient Summary Normal [facility] Consent for Treatmenton 04-25 Consent for Treatment [id number]#1.00T IFF Normal [facility] Discharge Instructionson Discharge Instructions [id number]#1.00T IFF Normal [facility] ED Clinical Summaryon 2023 ED Clinical Summary Normal [facility] ED Patient Education Noteon 05-11-2023 ED Patient Education Note Normal [facility] ED Patient Summaryon 024 ED Patient Summary Normal [facility] XR Hand 3+ Views Righton XR Hand 3+ Views Right Normal Fi vashti [facility] XR Wrist 3+ Views Righton XR Wrist 3+ Views Right Normal [facility] ED Note-Physicianon 05-09-19 24 ED Note-Physician Normal [facility] Comment on above: Result Comment: Elec tronically Signed By: Landon Tdiwell PA-C\.br\Date and Time Signed: 05/08/23 14:03 EST\.br\Electronically Co-Signed By: Balbina Bryant M.D.\.br\Date and Time Co-Signed: 05/09/23 07:48 EST BMPon 05-08-2023 Anion gap [Moles/Vol] 12 mmol/L Normal 6-16 [facility] Comment on above: Performed By: #### 2 097472, 6241942, 63343876, 9805365, 3043291 ####[facility] [address] [place] [address] BUN/Creat Ratio 21 No Units High 10-20 [facility] Comment on above: Performed By: #### 2 329616, 2602125, 67299450, 4701142, 0720268 ####[facility] [address] [place] [address] Calcium [Mass/Vol] 8.4 mg/dL Low 8.9-11.1 [facility] Comment on above: Performed By: #### 2 342068, 0778969, 01939299, 1163239, 9701957 ####[facility] [address] [place] [address] Chloride [Moles/Vol] 105 mmol/L Normal 101-111 [facility] Comment on above: Performed By: #### 2 245197, 5035123, 52430333, 8135910, 7707313 ####[facility] [address] [place] [address] CO2 [Moles/Vol] 24 mmol/L Normal 21-31 [facility] Comment on above: Performed By: #### 2 603706, 8953594, 47834900, 9374535, 8203302 ####[facility] [address] [place] [address] Creatinine [Mass/Vol] 0.7 mg/dL Normal 0.5-1.3 [facility] Comment on above: Performed By: #### 2 000267, 1513375, 20750556, 7243008, 6880275 ####[facility] [address] [place] [address] Glucose [Mass/Vol] 107 mg/dL Normal 55-199 [facility] Comment on above: Performed By: #### 2 551296, 2941224, 67109914, 2266724, 4080078 ####[facility] [address] [place] [address] Potassium [Moles/Vol] 4.1 mmol/L Normal 3.5-5.3 [facility] Comment on above: Performed By: #### 2 322667, 7345937, 58133284, 4583795, 3614629 ####[facility] [address] [place] [address] Sodium [Moles/Vol] 137 mmol/L Normal 135-145 [facility] Comment on above: Performed By: #### 2 003359, 5137069, 92290174, 7846987, 1898544 ####[facility] [address] [place] [address] Urea nitrogen [Mass/Vol] 15 mg/dL Normal 5-21 [facility] Comment on above: Performed By: #### 2 820271, 0556241, 85138518, 2432183, 1128987 ####[facility] [address] [place] [address] CBC w/ Auto Diffon 4 Basophil Absolute 0.1 E9/L Normal 0.0-0.2 [facility] Comment on above: Performed By: #### 2 027262, 0159040, 10053414, 4109377, 7252272 ####[facility] [address] [place] [address] Basophils/100 WBC (Bld) 0.8 % Normal 0.0-2.0 [facility] Comment on above: Performed By: #### 2 728358, 9266806, 23063320, 1782473, 3390506 ####[address] [address] Eos Absolute 0.2 E9/L Normal 0.0-0.5 [facility] Comment on above: Performed By: #### 2 329097, 2539722, 35598396, 6081994, 0366016 ####[address] [address] Eosinophils/100 WBC (Bld) 2.0 % Normal 0.0-8.0 [facility] Comment on above: Performed By: #### 2 115348, 9632042, 32584650, 9283933, 3769665 ####[address] [address] Erythrocyte distribution width (RBC) [Ratio] 13.1 % Normal 10.9-14.2 [facility] Comment on above: Performed By: #### 2 073291, 3359146, 09750173, 3955501, 0971315 ####[address] [address] Hematocrit (Bld) [Volume fraction] 44.0 % Normal 34.0-46.0 [facility] Comment on above: Performed By: #### 2 400013, 9358228, 57617623, 6887628, 0307356 ####[address] [address] Hemoglobin (Bld) [Mass/Vol] 15.0 g/dL Normal 12.0-16.0 [facility] Comment on above: Performed By: #### 2 192545, 0663975, 48980311, 0317186, 8561217 ####[facility] [address] [place] [address] Lymph Absolute 3.1 E9/L Normal 1.0-4.0 [facility] Comment on above: Performed By: #### 2 765198, 4227115, 55227892, 6153108, 3953832 ####[address] [address] Lymphocytes/100 WBC (Bld) 35.0 % Normal 14.0-50.0 [facility] Comment on above: Performed By: #### 2 635269, 1566275, 33343065, 1097200, 9647297 ####[address] [address] MCH (RBC) [Entitic mass] 32.2 pg Normal 27.0-34.0 [facility] Comment on above: Performed By: #### 2 248798, 2136189, 65482831, 5592643, 7099218 ####[address] [address] MCHC (RBC) [Mass/Vol] 34.3 g/dL Normal 31.4-36.0 [facility] Comment on above: Performed By: #### 2 438924, 2574686, 42656580, 8859006, 5737743 ####[address] [address] MCV (RBC) [Entitic vol] 94.0 fL Normal 80.0-100.0 [facility] Comment on above: Performed By: #### 2 928107, 2225165, 97739203, 0560357, 7089132 ####[address] [place] [address] [place] Absolute 0.6 E9/L Normal 0.2-1.[address] [facility] Comment on above: Performed By: #### 2 792208, 2722904, 01278694, 4652476, 9638988 ####[address] [address] Monocytes/100 WBC (Bld) 6.9 % Normal 4.0-14.0 [facility] Comment on above: Performed By: #### 2 256162, 2228305, 97043613, 0515407, 8783846 ####[address] [address] Neutro Absolute 5.0 E9/L Normal 2.0-7.5 [facility] Comment on above: Performed By: #### 2 144848, 6469194, 00414010, 8500759, 4180784 ####[address] [address] Neutro Auto 55.3 % Normal 36.0-75.0 [facility] Comment on above: Performed By: #### 2 930599, 4087086, 21542428, 1120817, 9396201 ####[address] [address] Platelet 279.0 E9/L Normal 150.0-500.0 [facility] Comment on above: Performed By: #### 2 091477, 5357961, 45579767, 4090685, 9506427 ####[address] [address] Platelet mean volume (Bld) [Entitic vol] 9.1 fL Normal 6.4-10.8 [facility] Comment on above: Performed By: #### 2 140501, 0550311, 46750831, 7353964, 1184621 ####[address] [address] RBC 4.7 E12/L Normal 4.3-5.9 [facility] Comment on above: Performed By: #### 2 236045, 1886728, 46672878, 6685034, 6161508 ####[address] [place] [address] WBC 9.0 E9/L Normal 4.0-11.0 [facility] Comment on above: Performed By: #### 2 393041, 2273498, 72827146, 8105096, 7348827 ####[facility] [address] [place] [address] CHEMISTRYOrdered By: SYSTEM SYSTEM on 05-08-2023 Albumin [...] for Treatmenton 04-25 Consent for Treatment [id number]#1.00T IFF Normal [facility] Discharge Instructionson Discharge Instructions [id number]#1.00 TIFF Normal [facility] ED Clinical Summaryon 2023 ED Clinical Summary Normal [facility] ED Patient Education Noteon 05-08-2023 ED Patient Education Note Normal [facility] ED Patient Summaryon 024 ED Patient Summary Normal [facility] HEMATOLOGYOrdered By: SYSTEM SYSTEM on [...] Normal 80.0 - 100.0 fL Remisol Heme [place] Absolute 0.6 E9/L Normal 0.2 - 1.0 [...] 05-08-2023 Albumin [Mass/Vol] 4.1 g/dL Normal 3.3-5.0 [facility] Comment on above: Performed By: #### 2 422548, 7746966, 49076374, 9027108, 4286676 ####[facility] [address] [place] [address] Albumin/Globulin [Mass ratio] 1.3 {ratio} Normal 1.1-2.2 [facility] Comment on above: Performed By: #### 2 525522, 4393877, 78264020, 3487755, 1674714 ####[facility] [address] [place] [address] Alk Phos 80 Int._Unit/L Normal 21-98 [facility] Comment on above: Performed By: #### 2 531280, 0346909, 16679445, 3448039, 6037036 ####[facility] [address] [place] [address] ALT 57 Int._Unit/L High 6-46 [facility] Comment on above: Performed By: #### 2 566895, 0687458, 61460027, 6809566, 6258428 ####[facility] [address] [place] [address] AST 27 Int._Unit/L Normal 5-43 [facility] Comment on above: Performed By: #### 2 980619, 7631095, 95148835, 6882157, 0387888 ####[address] [address] Bili Direct 0.1 mg/dL Normal 0.0-0.4 [facility] Comment on above: Performed By: #### 2 909707, 0768055, 24180640, 4448642, 3029823 ####[address] [address] Bili Indirect 0.4 mg/dL Normal 0.1-0.[address] [facility] Comment on above: Performed By: #### 2 890326, 0271549, 18470633, 3374654, 8656872 ####[address] [address] Bili Total 0.5 mg/dL Normal 0.0-1.1 [facility] Comment on above: Performed By: #### 2 880645, 7994679, 92697201, 2768876, 5412547 ####[facility] [address] [place] [address] Globulin (S) [Mass/Vol] 3.2 g/dL Normal 1.4-4.0 [facility] Comment on above: Performed By: #### 2 270035, 9819565, 10308785, 2798118, 8876038 ####[facility] [address] [place] [address] Protein [Mass/Vol] 7.3 g/dL Normal 6.0-7.8 [facility] Comment on above: Performed By: #### 2 568071, 8221549, 28785529, 3490580, 5519655 ####[facility] [address] [place] [address] Lipase Levelon 05-08-2023 Lipase Lvl 26 unit/L Normal 13-58 [facility] Comment on above: Performed By: #### 2 252252, 4488531, 77599206, 2812789, 3521851 ####[facility] [address] [place] [address] eGFRon 05-08-2023 eGFR 108 mL/min/1.73 m2 Normal >=59 [facility] Comment on above: Order Comment: Order added by Discern Expert. Performed By: #### 2 870503, 7428290, 23287919, 6601551, 4167188 ####[facility] [address] [place] [address] Discharge Instructionson Discharge Instructions [id number]#1.00T IFF Normal [facility] ED Note-Physicianon 05-05-19 ED Note-Physician Normal [facility] Comment on above: Result Comment: Elec tronically Signed By: Landon iTdwell PA-C\.br\Date and Time Signed: 05/04/23 22:33 EST\.br\Electronically Co-Signed By: Pedro Pablo Fletcher DO\.br\Date and Time Co-Signed: 05/05/23 19:43 EST Consent for Treatmenton 04-25 Consent for Treatment [id number]#1.00T IFF Normal [facility] ED Clinical Summaryon 2023 ED Clinical Summary Normal [facility] ED Note-Nursingon 05-04-2023 ED Note-Nursing Pt. refused staying for 30 minutes more for observation after receiving pain meds, said she always get immediately discharged after receiving the medications. Demanded leaving at this time. Normal [facility] ED Patient Education Noteon 05-04-2023 ED Patient Education Note Normal [facility] ED Patient Summaryon 024 ED Patient Summary Normal [facility] B hCG Qualon 04-30-2023 Beta HCG ( test) Ql Negative Normal [facility] Comment on above: Performed By: #### 2 3632487, 6536490, 3837491, 2103605, 3826453, 04076532, 6994955 ####[facility] [address] [place] [address] BMPon 04-30-2023 Anion gap [Moles/Vol] 12 mmol/L Normal 6-16 [facility] Comment on above: Performed By: #### 2 9435056, 4288850, 9741054, 3414008, 6738771, 96112650, 7525441 ####[facility] [address] [place] [address] BUN/Creat Ratio 21 No Units High 10-20 [facility] Comment on above: Performed By: #### 2 8339819, 0844046, 7797976, 2763673, 8114262, 16233134, 4479967 ####[facility] [address] [place] [address] Calcium [Mass/Vol] 8.6 mg/dL Low 8.9-11.1 [facility] Comment on above: Performed By: #### 2 6875485, 0283894, 3317668, 7331928, 7907598, 49365971, 4495393 ####[facility] [address] [place] [address] Chloride [Moles/Vol] 106 mmol/L Normal 101-111 [facility] Comment on above: Performed By: #### 2 4310906, 7545088, 3964387, 8612733, 4538295, 98665588, 3615900 ####[facility] [address] [place] [address] CO2 [Moles/Vol] 24 mmol/L Normal 21-31 [facility] Comment on above: Performed By: #### 2 8329276, 1464253, 5867909, 9794319, 1611374, 76152934, 5922757 ####[facility] [address] [place] [address] Creatinine [Mass/Vol] 0.7 mg/dL Normal 0.5-1.3 [facility] Comment on above: Performed By: #### 2 7514947, 2754826, 6448703, 4349709, 3238821, 81790149, 6754720 ####[facility] [address] [place] [address] Glucose [Mass/Vol] 83 mg/dL Normal 55-199 [facility] Comment on above: Performed By: #### 2 6319361, 8603315, 0983597, 2638655, 7298450, 78171327, 2926003 ####[facility] [address] [place] [address] Potassium [Moles/Vol] 4.1 mmol/L Normal 3.5-5.3 [facility] Comment on above: Performed By: #### 2 8848064, 4866694, 5965335, 3762239, 3343961, 27026365, 5514454 ####[facility] [address] [place] [address] Sodium [Moles/Vol] 138 mmol/L Normal 135-145 [facility] Comment on above: Performed By: #### 2 3209232, 6956136, 3160815, 2926965, 6450918, 35310041, 6364553 ####[facility] [address] [place] [address] Urea nitrogen [Mass/Vol] 15 mg/dL Normal 5-21 [facility] Comment on above: Performed By: #### 2 3530165, 5489709, 3833645, 8888575, 2871977, 17958085, 3123245 ####[facility] [address] [place] [address] CBC w/ Auto Diffon 4 Basophil Absolute 0.0 E9/L Normal 0.0-0.2 [facility] Comment on above: Performed By: #### 2 6666455, 8471800, 5329334, 9109838, 8713715, 57249291, 5596855 ####[address] [address] Basophils/100 WBC (Bld) 0.6 % Normal 0.0-2.0 [facility] Comment on above: Performed By: #### 2 4883724, 0829895, 6416283, 7808014, 8881511, 07889201, 9989640 ####[address] [address] Eos Absolute 0.2 E9/L Normal 0.0-0.5 [facility] Comment on above: Performed By: #### 2 4979190, 7106140, 1841021, 4123628, 9485328, 10599878, 6655256 ####[address] [address] Eosinophils/100 WBC (Bld) 2.5 % Normal 0.0-8.0 [facility] Comment on above: Performed By: #### 2 9549288, 6724709, 6254535, 0503262, 6634721, 42722449, 6044731 ####[address] [address] Erythrocyte distribution width (RBC) [Ratio] 13.3 % Normal 10.9-14.2 [facility] Comment on above: Performed By: #### 2 8162789, 9568084, 7067671, 2663961, 6322090, 49101849, 2665081 ####[address] [address] Hematocrit (Bld) [Volume fraction] 43.0 % Normal 34.0-46.0 [facility] Comment on above: Performed By: #### 2 9111333, 3685751, 9724617, 0982959, 0904026, 99567807, 6135452 ####[facility] [address] [place] [address] Hemoglobin (Bld) [Mass/Vol] 14.3 g/dL Normal 12.0-16.0 [facility] Comment on above: Performed By: #### 2 3838978, 4901544, 9725169, 4418451, 5259635, 52496547, 6148256 ####[address] [address] Lymph Absolute 2.2 E9/L Normal 1.0-4.0 [facility] Comment on above: Performed By: #### 2 5666812, 8725620, 5181181, 8372918, 3426312, 69152245, 4360963 ####[address] [address] Lymphocytes/100 WBC (Bld) 26.7 % Normal 14.0-50.0 [facility] Comment on above: Performed By: #### 2 2754063, 3091221, 5372227, 7697168, 8774073, 75737442, 3049432 ####[address] [address] MCH (RBC) [Entitic mass] 31.7 pg Normal 27.0-34.0 [facility] Comment on above: Performed By: #### 2 5352478, 8944674, 7124602, 3163568, 3452279, 99544871, 4856991 ####[address] [address] MCHC (RBC) [Mass/Vol] 33.5 g/dL Normal 31.4-36.0 [facility] Comment on above: Performed By: #### 2 9616790, 2254604, 5179170, 8220493, 1366697, 23521962, 6744344 ####[address] [address] MCV (RBC) [Entitic vol] 94.6 fL Normal 80.0-100.0 [facility] Comment on above: Performed By: #### 2 4665865, 6914894, 5998773, 5687618, 4114030, 50647289, 1258983 ####[facility] [address] [place] [address] [place] Absolute 0.7 E9/L Normal 0.2-1.[address] [facility] Comment on above: Performed By: #### 2 2201229, 2802795, 9193917, 4586138, 7297083, 89125113, 5014044 ####[facility] [address] [place] [address] Monocytes/100 WBC (Bld) 8.4 % Normal 4.0-14.0 [facility] Comment on above: Performed By: #### 2 2108537, 4442732, 0502006, 9840627, 2447814, 64013326, 2646685 ####[address] [address] Neutro Absolute 5.0 E9/L Normal 2.0-7.5 [facility] Comment on above: Performed By: #### 2 8824767, 0313508, 7075452, 6728203, 8750823, 59263025, 7008155 ####[facility] [address] [place] [address] Neutro Auto 61.8 % Normal 36.0-75.0 [facility] Comment on above: Performed By: #### 2 1805113, 7856067, 2829330, 5433385, 9704368, 11868324, 1258095 ####[facility] [address] [place] [address] Platelet 303.0 E9/L Normal 150.0-500.0 [facility] Comment on above: Performed By: #### 2 8134605, 1514690, 8233258, 8851230, 6472751, 03507877, 5509065 ####[address] [place] [address] Platelet mean volume (Bld) [Entitic vol] 9.1 fL Normal 6.4-10.8 [facility] Comment on above: Performed By: #### 2 0936311, 1882605, 3357895, 5111470, 1801523, 47909222, 3951361 ####[facility] [address] [place] [address] RBC 4.5 E12/L Normal 4.3-5.9 [facility] Comment on above: Performed By: #### 2 1407175, 7153824, 2157859, 6858067, 2098279, 53977382, 2388479 ####[facility] [address] [place] [address] WBC 8.1 E9/L Normal 4.0-11.0 [facility] Comment on above: Performed By: #### 2 6488417, 4796634, 0075596, 0868340, 5375863, 25037334, 1364616 ####[facility] [address] [place] [address] CT Abdomen/Pelvis w/ Contras ton 04-30-2023 CT Abdomen/Pelvis w/ Contrast Normal [facility] Consent for Treatmenton Consent for Treatment [id number]#1.00T IFF Normal [facility] Discharge Instructionson Discharge Instructions [id number]#1.00T IFF Normal [facility] ED Clinical Summaryon 2023 ED Clinical Summary Normal [facility] ED Note-Physicianon 04-30-19 24 ED Note-Physician Normal [facility] Comment on above: Result Comment: Elec tronically Signed By: Elisa Sánchez DO\Date and Time Signed: 04/30/23 21:02 EST ED Patient Education Noteon 04-30-2023 ED Patient Education Note Normal [facility] ED Patient Summaryon 024 ED Patient Summary Normal [facility] Hep Func Panelon 04-30-2023 Albumin [Mass/Vol] 3.9 g/dL Normal 3.3-5.0 [facility] Comment on above: Performed By: #### 2 0883021, 2663098, 8256345, 3687301, 5464099, 31590059, 4900623 ####[facility] [address] [place] [address] Albumin/Globulin [Mass ratio] 1.3 {ratio} Normal 1.1-2.2 [facility] Comment on above: Performed By: #### 2 6662318, 4884231, 5307452, 9242567, 4155590, 69519795, 4898452 ####[address] [place] [address] Alk Phos 84 Int._Unit/L Normal 21-98 [facility] Comment on above: Performed By: #### 2 0161162, 4276944, 6928170, 5243856, 6195709, 99212033, 5601145 ####[address] [address] ALT 118 Int._Unit/L High 6-46 [facility] Comment on above: Performed By: #### 2 1651099, 1977018, 4492944, 9141728, 6993580, 24827153, 9920182 ####[address] [address] AST 83 Int._Unit/L High 5-43 [facility] Comment on above: Performed By: #### 2 8931519, 0514129, 0885549, 4891875, 6202733, 21208685, 4497451 ####[facility] [address] [place] [address] Bili Direct 0.1 mg/dL Normal 0.0-0.4 [facility] Comment on above: Performed By: #### 2 2580974, 1291011, 4190435, 6357222, 6685729, 35890443, 4453349 ####[address] [address] Bili Indirect 0.2 mg/dL Normal 0.1-0.[address] [facility] Comment on above: Performed By: #### 2 7961443, 5702142, 4157936, 8163865, 5436681, 25038514, 1984872 ####[facility] [address] [place] [address] Bili Total 0.3 mg/dL Normal 0.0-1.1 [facility] Comment on above: Performed By: #### 2 7415750, 3443031, 1002846, 6037714, 6957761, 40490974, 3080496 ####[address] [address] Globulin (S) [Mass/Vol] 3.0 g/dL Normal 1.4-4.0 [facility] Comment on above: Performed By: #### 2 2019602, 2565710, 7268924, 4458031, 7138548, 03198491, 9357337 ####[address] [address] Protein [Mass/Vol] 6.9 g/dL Normal 6.0-7.8 [facility] Comment on above: Performed By: #### 2 9795009, 9269330, 7801911, 3899085, 4354161, 50796091, 7599532 ####[address] [address] Lactic Acidon 04-30-2023 Lactic Acid Lvl 1.3 mmol/L Normal 0.5-2.2 [facility] Comment on above: Performed By: #### 2 4991556, 2519069, 1239950, 6119772, 7620606, 84636214, 3587049 ####[address] [address] Lipase Levelon 04-30-2023 Lipase Lvl 29 unit/L Normal 13-58 [facility] Comment on above: Performed By: #### 2 0993398, 8818459, 6003740, 3812617, 3312363, 12717633, 0168124 ####[facility] [address] [place] [address] MRI Cholangiogram Pancreatog abdulkadir (mrcp)on 04-30-2023 MRI Cholangiogram Pancreatography (mrcp) Normal [facility] RAD - MRI Screening Formon 0 04-30-2023 RAD - MRI Screening Form [id number]#1.00 TIFF Normal [facility] UA With Cult Reflexon 2023 Bacteria LM Ql (Urine sed) TRACE Normal Trace [facility] Comment on above: Performed By: #### 1 0633411 ####[facility] [address] [place] [address] Bilirubin Ql (U) Negative Normal Negative [facility] Comment on above: Performed By: #### 1 1408584 ####[facility] [address] [place] [address] Clarity (U) CLEAR Normal Clear [facility] Comment on above: Performed By: #### 1 0565363 ####[facility] [address] [place] [address] Color (U) YELLOW Normal Yellow [facility] Comment on above: Performed By: #### 1 9497240 ####[facility] [address] [place] [address] Epithelial cells.squamous LM.HPF (Urine sed) [#/Area] 5-8 Normal 0-[address] [facility] Comment on above: Performed By: #### 1 2139495 ####[facility] [address] [place] [address] Glucose Test strip (U) [Mass/Vol] Negative Normal Negative [facility] Comment on above: Performed By: #### 1 9678360 ####[facility] [address] [place] [address] Hemoglobin Ql (U) Negative Normal Negative [facility] Comment on above: Performed By: #### 1 9326292 ####[address] [address] Ketones (U) [Mass/Vol] Negative Normal Negative [facility] Comment on above: Performed By: #### 1 3034088 ####[address] [address] [place].plasma/[place] .RBC (Bld) [Mass ratio] 0-3 Normal 0-3 [facility] Comment on above: Performed By: #### 1 0895381 ####[address] [address] Nitrite Ql (U) Negative Normal Negative [facility] Comment on above: Performed By: #### 1 4031056 ####[address] [address] pH (U) 5.5 [pH] Invalid Interpretation Code 5.0-9.0 [facility] Comment on above: Performed By: #### 1 3215268 ####[address] [address] Protein (U) [Mass/Vol] Negative Normal Negative [facility] Comment on above: Performed By: #### 1 4558117 ####[address] [address] Specific gravity (U) [Rel density] 1.010 Invalid Interpretation Code 1.005-1.030 [facility] Comment on above: Performed By: #### 1 1923718 ####[address] [address] Type of Urine collection method Clean Catch Normal [facility] Comment on above: Performed By: #### 1 8312459 ####[address] [address] Urobilinogen Qn (U) 0.2 {Jan'U}/dL Normal 0.0-1.0 [facility] Comment on above: Performed By: #### 1 7719989 ####[address] [address] WBC Auto Ql (U) Negative Normal Negative [facility] Comment on above: Performed By: #### 1 9215009 ####[facility] [address] [place] [address] WBC LM.HPF (Urine sed) [#/Area] 0-5 Normal 0-5 [facility] Comment on above: Performed By: #### 1 1155570 ####[facility] [address] [place] [address] eGFRon 04-30-2023 eGFR 108 mL/min/1.73 m2 Normal >=59 [facility] Comment on above: Order Comment: Order added by Discern Expert. Performed By: #### 2 9983898, 9277308, 8919978, 6703753, 0624710, 93392951, 9988337 ####[facility] [address] [place] [address] ED NOTESon 04-28-2023 [facility] Ed Note ED Note: Last filed note HNO ID: [id number] Author: Laurita Baires, RN Service: Length of Stay Author Type: Registered Nurse Filed: 04/28/23 003 Note Text: Patient discharged to home, alert and oriented, skin warm, dry and pink. Denies needs and or questions. Will follow-up as directed, patient encouraged to return for worsening or new symptoms or other concerns. [facility] Ed Note ED Note: Last filed note HNO ID: [id number] Author: Laurita Baires RN Service: Length of Stay Author Type: Registered Nurse Filed: 04/28/23 003 Note Text: Pt ambulated to restroom with steady gait. Pt states her pain has improved and is now 5/10 and tolerable. Physician aware. HNO ID: [id number] Author: Laurita Baires, DARSHAN Service: Length of Stay Author Type: Registered Nurse Filed: 04/28/23 0030 Note Text: Pt ambulated to restroom with steady gait. Pt states her pain has improved and is now 5/10 and tolerable. [facility] ED PROVIDER NOTESon 04-28-19 [facility] Ed Provider Note ED Provider Note: L ast filed note HNO ID: [id number] Author: Sal Juarez MD Service: Emergency Medicine [...] by: Sal Juarez MD, 04/28/2023 5:07 AM [facility] ED NOTESon 04-27-2023 [facility] Ed Note ED Note: Last filed note HNO ID: [id number] Author: Laurita Baires, RN Service: Length of Stay Author Type: Registered Nurse Filed: 04/27/23 2552 Note Text: To bedside for rounding. Pt medicated for 10/10 pain per MAR. Pt resting quietly. No other needs expressed at this time. Call light in reach. [facility] Ed Note ED Note: Last filed note HNO ID: [id number] Author: Laurita Baires, RN Service: Length of Stay Author Type: Registered Nurse Filed: 04/27/23 2303 Note Text: To bedside to introduce self to pt and address needs. Resident at bedside. Pt resting quietly. No needs expressed at this time. Call light within reach. [facility] ED Note-Physicianon 04-27-19 ED Note-Physician James [facility] Comment on above: Result Comment: Elec tronically Signed By: Angelic Reece PA-C\.br\Date and Time Signed: 04/25/23 10:27 EST\.br\Electronically Co-Signed By: Pedro Pablo Fletcher DO\.br\Date and Time Co-Signed: 04/27/23 20:17 EST ED PROVIDER NOTESon 04-27-19 24 Php Ed Provider Note ED Provider Note: Pepe ast filed note HNO ID: [id number] Author: Sharan Hwang MD Service: Emergency Medicine [...] Loc Pain Edu? Excl. in GC? Vitals: 02/03/24 2240 BP: (!) 170/96 Pulse: 83 Resp: [...] tablet 1,000 mg (1,000 mg Oral Given 2/3/24 2328) ketorolac (TORADOL) injection 15 mg (15 mg [...] with se (more content not included)... Normal [facility] ED TRIAGEon 04-27-2023 [facility] Ed Triage Note ED Triage Note: Last filed note HNO ID: [id number] Author: Rebecca Gómez RN Service: Emergency Medicine Author Type: Registered Nurse Filed: 04/27/23 4897 Note Text: Patient arrives to triage stating she has a herniated L4-L5 disc, got on an inversion table tonight and is now having back pain. Denies any other injury or complaints. A Normal [facility] Consent for Treatmenton Consent for Treatment [id number]#1.00T IFF Normal [facility] Discharge Instructionson Discharge Instructions [id number]#1.00T IFF Normal [facility] ED Clinical Summaryon 2023 ED Clinical Summary Normal [facility] ED Note-Physicianon 04-26-19 ED Note-Physician Normal [facility] Comment on above: Result Comment: Elec tronically Signed By: Annette Watkins, Balbina Sparks\.rufino\Date and Time Signed: 04/26/23 10:46 EST ED Patient Education Noteon 04-26-2023 ED Patient Education Note Normal [facility] ED Patient Summaryon 024 ED Patient Summary Normal [facility] ED Note-Physicianon 04-23-19 ED Note-Physician Normal [facility] Comment on above: Result Comment: Elec tronically Signed By: Landon Tidwell PA-C.br\Date and Time Signed: 04/22/23 20:40 EST\.br\Electronically Co-Signed By: Landon Tidwell PA-C.br\Date and Time Co-Signed: 04/22/23 20:40 EST\.br\Electronically Co-Signed By: Pedro Pablo Fletcher DO.br\Date and Time Co-Signed: 04/23/23 00:21 EST Consent for Treatmenton 03-26 Consent for Treatment [id number]#1.00T IFF Normal [facility] Discharge Instructionson Discharge Instructions [id number]#1.00 TIFF Normal [facility] ED Clinical Summaryon 2023 ED Clinical Summary Normal [facility] ED Patient Education Noteon 04-22-2023 ED Patient Education Note Normal [facility] ED Patient Summaryon 024 ED Patient Summary Normal [facility] XR shoulder LT min 2V*on XR shoulder LT min 2V* [facility] [address] [place] [id number] XRay Report Signed Patient: Jerad Tracy MR#: [id number] 49 : 1975 Acct:[id number] Age/Sex: 48 / F ADM Date: 04/12/23 Loc: ER Room: Type: [facility] ER Attending Dr: Copies to: Joshua [...] Velazquez Jr., D.O.04/12/2023 2:36 PM Dictation Location: [place] [address] Transcribed By: [facility] 04/12/23 1436 Dictated By: Johan Velazquez Jr, DO 04/12/23 1435 Signed By: 04/12/23 1436 Normal [facility] CT Spine Lumbar w/o Contrast on 04-11-2023 CT Spine Lumbar w/o Contrast Normal [facility] CT Spine Thoracic w/o Contra ston 04-11-2023 CT Spine Thoracic w/o Contrast Normal [facility] Consent To Leave AMAon 04-11 Consent To Leave AMA [id number]#1.00 TIFF [facility] Consent for Treatmenton 03-25 Consent for Treatment [id number]#1.00T IFF [facility] Discharge Instructionson Discharge Instructions [id number]#1.0 0TIFF [facility] ED Clinical Summaryon 2023 ED Clinical Summary Normal [facility] ED Clinical Summary Normal [facility] ED Note-Nursingon 04-11-2023 ED Note-Nursing Patient requesting t o leave AMA at this time. Dr. Fletcher made aware. Patient ambulatory upon exit with spouse. Normal [facility] ED Note-Nursing Patient offered additional medication. Patient states no relief from original medication. Patient refused additional medications. Patient states I can just do that at home. Dr. Fletcher made aware. Normal [facility] ED Note-Nursing Patient updated with plan at this time, aware of awaiting ct results. Normal [facility] ED Note-Physicianon 04-11-19 ED Note-Physician [facility] Comment on above: Result Comment: Elec tronically Signed By: Robert Taylor PA-C\.br\Date and Time Signed: 04/11/23 18:59 EST\.br\Electronically Co-Signed By: Annette Watkins Balbina Alcantar.rufino\Date and Time Co-Signed: 04/11/23 19:13 EST ED Patient Education Noteon 04-11-2023 ED Patient Education Note Normal [facility] ED Patient Education Note Normal [facility] ED Patient Summaryon 024 ED Patient Summary Normal [facility] ED Patient Summary Normal [facility] RAD - Preliminary Cat Scan R eporton 04-11-2023 RAD - Preliminary Cat Scan Report [id number]#1.00 TIFF Normal [facility] XR Spine Lumbosacral 2 or 3 Viewson 04-11-2023 XR Spine Lumbosacral 2 or 3 Views Normal [facility] Consent for Treatmenton 03-25 Consent for Treatment [id number]#1.00T IFF Normal [facility] CT Spine Lumbar w/o Contrast [...] above for additional findings. Radiation Dose Estimate: CTDI(mGy):0.129702 / / / kVp:120.121796 / mAs:0.896050 / / / DLP(mGy-cm):3.859833Gjq y Part: CTDI(mGy):49.273942 / / / kVp:140.322294 / mAs:341.182268 / / / DLP(mGy-cm):1330.938909 Body Part: Final Dictated by: Kem Childers MD Dictated DT/TM: 04.08.2023 7:30 pm Signed by: Kem Childers MD Signed (Electronic Signature): 04.08.2023 7:37 pm (If Report Is Signed, Electronically Signed in Other Vendor System) Normal [facility] ED Clinical Summaryon 2023 ED Clinical Summary (Inserted Image. Darlene ble to display) [address] [address] ED Clinical Summary Person Information Name: Jerad [facility] Age: 48 Years : 1975 Sex: Female PCP: Marital Status: Phone: Race: White Ethnicity: Not or Language: Citizen Of [place] Visit Reason: Back pain; back pain Acuity: 4 Enc Type: Emergency Med Service: Emergency Medicine Arrival: 04/08/2023 16:48:15 Discharge: 04/08/2023 20:40:00 LOS: 000 03:52 Checkin: 04/08/2023 16:48:15 Checkout: 04/08/2023 20:40:00 Dispo Type: Home or Self Care Address: [facility] [id number] Provider Notes: Diagnosis: 1:Lumbar pain; 2:Bulging lumbar [...] Physician Referral Line Comments: [facility] Referral Line [phone] to establish PCP Discharge Orders: Discharge Patient 04/08/23 20:15:00 EST, Discharge to Home, Self, Lumbar pain Patient Education Information: Degenerative Disk Disease [facility] Poison Help line: . [facility] Hotline: [place] Tobacco Quit Line: [place], [place]) [address]: [phone] [place], [place]) [address]: [phone] [facility] [address] [place], [place]: [phone] [facility] ED Note-Physicianon 04-08-19 ED Note-Physician [...] and appropria (more content not included)... Normal [facility] Auto Diffon 04-05-2023 Basophils/100 WBC (Bld) 0.4 % Normal 0.0-2.0 [facility] Comment on above: Order Comment: Order Added by Gregory Expert. Performed By: #### 2 859690, 8447136, 3524750, 5332001, 7188681, 91474853 ####[facility] [address] [place] [address] Basophils/Leukocytes Auto (Bld) [Pure # fraction] 0.0 E9/L Normal 0.0-0.2 [facility] Comment on above: Order Comment: Order Added by Gregory Expert. Performed By: #### 2 353228, 4909466, 5916329, 6137905, 8045113, 23299180 ####[address] [place] [address] Eosinophils/100 WBC (Bld) 2.3 % Normal 0.0-8.0 [facility] Comment on above: Order Comment: Order Added by Gregory Expert. Performed By: #### 2 695259, 7262106, 4110489, 7022947, 1425029, 50470653 ####[facility] [address] [place] [address] Eosinophils/Leukocytes Auto (Bld) [Pure # fraction] 0.2 E9/L Normal 0.0-0.5 [facility] Comment on above: Order Comment: Order Added by Gregory Expert. Performed By: #### 2 692236, 7877170, 1595839, 6162950, 9619619, 57712993 ####[facility] [address] [place] [address] Lymphocytes/100 WBC (Bld) 29.6 % Normal 14.0-50.0 [facility] Comment on above: Order Comment: Order Added by Gregory Expert. Performed By: #### 2 033516, 1499352, 7058824, 0339468, 2743553, 80257604 ####[address] [place] [address] Lymphocytes/Leukocytes Auto (Bld) [Pure # fraction] 2.2 E9/L Normal 1.0-4.0 [facility] Comment on above: Order Comment: Order Added by Discern Expert. Performed By: #### 2 241320, 4237676, 1115590, 4770388, 9070354, 27104471 ####[address] [place] [address] Monocytes/100 WBC (Bld) 9.7 % Normal 4.0-14.0 [facility] Comment on above: Order Comment: Order Added by Discern Expert. Performed By: #### 2 348690, 6286174, 0642318, 8668367, 5895053, 15170189 ####[address] [place] [address] Monocytes/Leukocytes Auto (Bld) [Pure # fraction] 0.7 E9/L Normal 0.2-1.0 [facility] Comment on above: Order Comment: Order Added by Discern Expert. Performed By: #### 2 613487, 9708300, 9153956, 9667011, 7247220, 28716057 ####[address] [address] Neutrophils/100 WBC (Bld) 58.0 % Normal 36.0-75.0 [facility] Comment on above: Order Comment: Order Added by Discern Expert. Performed By: #### 2 528714, 4437457, 6705341, 7803867, 2807375, 00726294 ####[address] [place] [address] Neutrophils/Leukocytes Auto (Bld) [Pure # fraction] 4.3 E9/L Normal 2.0-7.5 [facility] Comment on above: Order Comment: Order Added by Discern Expert. Performed By: #### 2 517250, 9743148, 3797457, 0747908, 5009172, 83423055 ####[address] [place] [address] BMPon 04-05-2023 Anion gap [Moles/Vol] 11 mmol/L Normal 6-16 [facility] Comment on above: Performed By: #### 2 796510, 7052279, 9841851, 8422336, 7645096, 17714457 ####[facility] [address] [place] [address] BUN/Creat Ratio 15 No Units Normal 10-20 [facility] Comment on above: Performed By: #### 2 299701, 0596786, 2741700, 5732034, 7054882, 20560920 ####[facility] [address] [place] [address] Calcium [Mass/Vol] 8.6 mg/dL Low 8.9-11.1 [facility] Comment on above: Performed By: #### 2 804451, 8338119, 1535703, 9736463, 2663724, 08618851 ####[facility] [address]gmiwl[address]wh[address] [place] [address] Chloride [Moles/Vol] 107 mmol/L Normal 101-111 [facility] Comment on above: Performed By: #### 2 133345, 3750403, 9414424, 7759095, 0112032, 53704177 ####[facility] [address]qq[address] [place] [address] CO2 [Moles/Vol] 24 mmol/L Normal 21-31 [facility] Comment on above: Performed By: #### 2 136711, 6813144, 0566758, 7998403, 6022204, 98348949 ####[facility] [address] [place] [address] Creatinine [Mass/Vol] 0.8 mg/dL Normal 0.5-1.3 [facility] Comment on above: Performed By: #### 2 922949, 3147216, 5417664, 6234355, 1401031, 19647802 ####[facility] [address]Nor[address] [place] [address] Glucose [Mass/Vol] 145 mg/dL Normal 55-199 [facility] Comment on above: Performed By: #### 2 232215, 2480816, 8299822, 6873450, 7947094, 24778747 ####[facility] [address] [place] [address] Potassium [Moles/Vol] 3.4 mmol/L Low 3.5-5.3 [facility] Comment on above: Performed By: #### 2 485883, 0695917, 7038456, 5286398, 8350556, 70270062 ####[facility] [address] [place] [address] Sodium [Moles/Vol] 139 mmol/L Normal 135-145 [facility] Comment on above: Performed By: #### 2 004694, 2430959, 4979959, 5942042, 4452820, 16146606 ####[facility] [address] [place] [address] Urea nitrogen [Mass/Vol] 12 mg/dL Normal 5-21 [facility] Comment on above: Performed By: #### 2 441420, 0858114, 5806649, 0847370, 5520669, 31618634 ####[facility] [address] [place] [address] CBC w/ Auto Diffon Erythrocyte distribution width (RBC) [Ratio] 13.2 % Normal 10.9-14.2 [facility] Comment on above: Performed By: #### 2 228249, 2437863, 2995299, 6705486, 0666517, 44892429 ####[facility] [address] [place] [address] Hematocrit (Bld) [Volume fraction] 43.1 % Normal 34.0-46.0 [facility] Comment on above: Performed By: #### 2 067665, 6274861, 7431868, 4721514, 4340062, 98224228 ####[facility] [address] [place] [address] Hemoglobin (Bld) [Mass/Vol] 14.5 g/dL Normal 12.0-16.0 [facility] Comment on above: Performed By: #### 2 225480, 9219365, 5237732, 0060138, 1225309, 92438704 ####[address] [address] MCH (RBC) [Entitic mass] 31.8 pg Normal 27.0-34.0 [facility] Comment on above: Performed By: #### 2 710405, 7980375, 7700589, 7125778, 8857824, 16186049 ####[address] [address] MCHC (RBC) [Mass/Vol] 33.5 g/dL Normal 31.4-36.0 [facility] Comment on above: Performed By: #### 2 101576, 7317525, 0050965, 7484009, 6541545, 95034152 ####[address] [address] MCV (RBC) [Entitic vol] 95.0 fL Normal 80.0-100.0 [facility] Comment on above: Performed By: #### 2 129373, 5045685, 1887910, 2275782, 0031725, 59762668 ####[address] [address] Platelet mean volume (Bld) [Entitic vol] 9.0 fL Normal 6.4-10.8 [facility] Comment on above: Performed By: #### 2 500199, 8988080, 7199581, 1716222, 0452515, 02902615 ####[address] [address] Platelets (Bld) [#/Vol] 268.0 E9/L Normal 150.0-500.0 [facility] Comment on above: Performed By: #### 2 347353, 8724792, 8129082, 8736069, 6925611, 16743467 ####[address] [place] [address] RBC (Bld) [#/Vol] 4.5 E12/L Normal 4.3-5.9 [facility] Comment on above: Performed By: #### 2 167263, 4492976, 4710835, 4494784, 4970708, 28025742 ####[facility] [address] [place] [address] WBC corrected for nucl RBC Auto (Bld) [#/Vol] 7.4 E9/L Normal 4.0-11.0 [facility] Comment on above: Performed By: #### 2 808158, 0456440, 6134338, 7702737, 8756906, 61563920 ####[facility] [address] [place] [address] CHEMISTRYOrdered By: SYSTEM SYSTEM on 04-05-2023 Albumin [...] for Treatmenton 03-25 Consent for Treatment [id number] [id number]#1.00T IFF Normal [facility] Discharge Instructionson Discharge Instructions [id number]#1.00 TIFF Normal [facility] ED Clinical Summaryon 2023 ED Clinical Summary Normal [facility] ED Note-Physicianon 04-05-19 ED Note-Physician Normal [facility] Comment on above: Result Comment: Elec tronically Signed By: Robert Taylor PA-C\.br\Date and Time Signed: 04/05/23 18:35 EST\.br\Electronically Co-Signed By: Nikhil Tubbs DO\.br\Date and Time Co-Signed: 04/05/23 18:36 EST ED Patient Education Noteon 04-05-2023 ED Patient Education Note Normal [facility] ED Patient Summaryon 024 ED Patient Summary Normal [facility] HEMATOLOGYOrdered By: SYSTEM SYSTEM on [...] fL Normal 6.4 - 10.8 fL [facility] HemeAutoSS Platelets (Bld) [#/Vol] 268.0 E9/L Normal 150.0 - 500.0 E9/L [facility] HemeAutoSS RBC (Bld) [#/Vol] 4.5 E12/L Normal 4.3 - 5.9 E12/L [facility] [place] HemeAutoSS WBC corrected for nucl RBC Auto (Bld) [#/Vol] 7.4 E9/L Normal 4.0 - 11.0 E9/L [facility] HemeAutoSS Hep Func Panelon 04-05-2023 Albumin [Mass/Vol] 4.0 g/dL Normal 3.3-5.0 [facility] Comment on above: Performed By: #### 2 745702, 1052708, 6021641, 9062725, 7640142, 05980126 ####[facility] [address] [place] [address] Albumin/Globulin [Mass ratio] 1.2 {ratio} Normal 1.1-2.2 [facility] Comment on above: Performed By: #### 2 302357, 6447499, 2926300, 0163940, 4485177, 27470093 ####[facility] [address] [place] [address] Alk Phos 79 Int._Unit/L Normal 21-98 [facility] Comment on above: Performed By: #### 2 051851, 4229518, 6739920, 8614780, 3835737, 21462573 ####[facility] [address] [place] [address] ALT 140 Int._Unit/L High 6-46 [facility] Comment on above: Performed By: #### 2 331472, 0685365, 1144737, 2964603, 4186681, 11215140 ####[facility] [address] [place] [address] AST 83 Int._Unit/L High 5-43 [facility] Comment on above: Performed By: #### 2 080965, 4210908, 0994425, 4352288, 9304449, 21970815 ####[facility] [address] [place] [address] Bili Direct 0.2 mg/dL Normal 0.0-0.4 [facility] Comment on above: Performed By: #### 2 872367, 9936734, 4247536, 9514958, 4751050, 96881014 ####[facility] [address] [place] [address] Bili Indirect 0.6 mg/dL Normal 0.1-0.[address] [facility] Comment on above: Performed By: #### 2 463772, 9950503, 2808187, 5774439, 3602893, 89597933 ####[facility] [address] [place] [address] Bili Total 0.8 mg/dL Normal 0.0-1.1 [facility] Comment on above: Performed By: #### 2 131446, 8831241, 6924354, 4778116, 7434323, 30741290 ####[facility] [address] [place] [address] Globulin (S) [Mass/Vol] 3.3 g/dL Normal 1.4-4.0 [facility] Comment on above: Performed By: #### 2 629058, 5359407, 5469054, 7177276, 6153701, 70447246 ####[facility] [address] [place] [address] Protein [Mass/Vol] 7.3 g/dL Normal 6.0-7.8 [facility] Comment on above: Performed By: #### 2 934241, 0210245, 1396565, 3008319, 5468451, 30074623 ####[facility] [address] [place] [address] Lipase Levelon 04-05-2023 Lipase Lvl 26 unit/L Normal 13-58 [facility] Comment on above: Performed By: #### 2 757889, 1267322, 1115129, 7345214, 2223313, 57579417 ####[facility] [address] [place] [address] eGFRon 04-05-2023 GFR/1.73 sq M.predicted among non-blacks MDRD (S/P/Bld) [Vol rate/Area] mL/min/{1.73_m2} Normal >=59 [facility] Comment on above: Order Comment: Order added by Discern Expert. Performed By: #### 2 724045, 6408172, 9200326, 3590681, 6094683, 01919446 ####[facility] [address] [place] [address] Consent for Treatmenton Consent for Treatment [id number] 65302 [id number]#1.00T IFF Normal [facility] Discharge Instructionson Discharge Instructions [id number]#1.00T IFF Normal [facility] ED Clinical Summaryon 2023 ED Clinical Summary Normal [facility] ED Note-Physicianon 04-02-19 24 ED Note-Physician Normal [facility] Comment on above: Result Comment: Elec tronically Signed By: Elisa Sánchez DO\.br\Date and Time Signed: 04/02/23 22:34 EST ED Patient Education Noteon 04-02-2023 ED Patient Education Note Normal [facility] ED Patient Summaryon 024 ED Patient Summary Normal [facility] Alpha 1 antitrypsinon 2023 Alpha 1 antitrypsin Nephelometry [Mass/Vol] 155 mg/dL Normal 84-218 [facility] Comment on above: Performed By: #### 6 771-0 ####JOLENE Cantu ([id number])[facility] ([facility])[address] [place] [address] Snipw-9-Ttowptztojrxl 2023 AFP [Mass/Vol] 6 ng/mL Normal 0-9 [facility] Comment on above: Order Comment: AFP t esting is performed by chemiluminescent immunoassay using the Siemens Machine Safety ManangementllInformous. Values obtained with different analyte methods cannot be used interchangeably. This test can be used as an adjunct in the diagnosis and monitoring of AFP-producing tumors, including non-seminomatous germ cell tumors and hepatocellular carcinomas. Performed By: #### 1 834-1 ####JOLENE Cantu (10647)[facility] ([facility])[address] [place] [address] Bilirubin.glucuronidated+Kenan irubin.albumin boundon 04-01-2023 Bilirubin.direct [Mass/Vol] 0.1 mg/dL Normal 0.0-0.3 [facility] Comment on above: Performed By: #### 1 968-7 ####SHWETA ROCHA ([id number])[facility] ([facility] [place] [address] CBC W Auto Differential pane l (Bld)on 04-01-2023 Basophils (Bld) [#/Vol] 0.01 x10*3/uL Normal 0.00-0.10 [facility] Comment on above: Performed By: #### 5 7021-8 ####SHWETA ROCHA (48158)[facility] ([facility])[address] [place] [address] Basophils/100 WBC (Bld) 0.2 % Normal 0.0-2.0 [facility] Comment on above: Performed By: #### 5 7021-8 ####SHWETA ROCHA (72753)[facility] ([facility])[address] [place] [address] Eosinophils (Bld) [#/Vol] 0.16 x10*3/uL Normal 0.00-0.70 [facility] Comment on above: Performed By: #### 5 7021-8 ####SHWETA ROCHA (48028)[facility] ([facility])[address] [place] [address] Eosinophils/100 WBC (Bld) 2.6 % Normal 0.0-6.0 [facility] Comment on above: Performed By: #### 5 7021-8 ####SHWETA ROCHA (62942)[facility] ([facility])[address] [place] [address] Erythrocyte distribution width (RBC) [Ratio] 12.2 % Normal 11.5-14.5 [facility] Comment on above: Performed By: #### 5 7021-8 ####SHWETA ROCHA (88710)[facility] ([facility])[address] [place] [address] Hematocrit (Bld) [Volume fraction] 47.8 % High 36.0-46.0 [facility] Comment on above: Performed By: #### 5 7021-8 ####SHWETA ROCHA (56612)[facility] ([facility])[address] [place] [address] Hemoglobin (Bld) [Mass/Vol] 16.0 g/dL Normal 12.0-16.0 [facility] Comment on above: Performed By: #### 5 7021-8 ####SHWETA ROCHA ([id number])[facility] ([facility])[address] [place] [address] Immature granulocytes (Bld) [#/Vol] 0.02 x10*3/uL Normal 0.00-0.70 [facility] Comment on above: Performed By: #### 5 7021-8 ####SHWETA ROCHA (25887)[facility] ([facility])[address] [place] [address] Immature granulocytes/100 WBC (Bld) 0.3 % Normal 0.0-0.9 [facility] Comment on above: Result Comment: Aspen ture Granulocyte Count (IG) includes promyelocytes, myelocytes and metamyelocytes but does not include bands. Percent differential counts (%) should be interpreted in the context of the absolute cell counts (cells/UL). Performed By: #### 5 7021-8 ####SHWETA ROCHA (12658)[facility] ([facility])[address] [place] [address] Lymphocytes (Bld) [#/Vol] 2.03 x10*3/uL Normal 1.20-4.80 [facility] Comment on above: Performed By: #### 5 7021-8 ####SHWETA ROCHA (08423)[facility] ([facility])[address] [place] [address] Lymphocytes/100 WBC (Bld) 32.7 % Normal 13.0-44.0 [facility] Comment on above: Performed By: #### 5 7021-8 ####SHWETA ROCHA (17910)[facility] ([facility])[address] [place] [address] MCH (RBC) [Entitic mass] 32.3 pg Normal 26.0-34.0 [facility] Comment on above: Performed By: #### 5 7021-8 ####SHWETA ROCHA (69303)[facility] ([facility])[address] [place] [address] MCHC (RBC) [Mass/Vol] 33.5 g/dL Normal 32.0-36.0 [facility] Comment on above: Performed By: #### 5 7021-8 ####SHWETA ROCHA (68952)[facility] ([facility])[address] [place] [address] MCV (RBC) [Entitic vol] 96 fL Normal 80-100 [facility] Comment on above: Performed By: #### 5 7021-8 ####SHWETA ROCHA (43085)[facility] ([facility])[address] [place] [address] Monocytes (Bld) [#/Vol] 0.72 x10*3/uL Normal 0.10-1.00 [facility] Comment on above: Performed By: #### 5 7021-8 ####SHWETA ROCHA (65186)[facility] ([facility])[address] [place] [address] Monocytes/100 WBC (Bld) 11.6 % Normal 2.0-10.0 [facility] Comment on above: Performed By: #### 5 7021-8 ####SHWETA ROCHA (41239)[facility] ([facility])[address] [place] [address]10 Neutrophils (Bld) [#/Vol] 3.26 x10*3/uL Normal 1.20-7.70 [facility] Comment on above: Result Comment: Perc ent differential counts (%) should be interpreted in the context of the absolute cell counts (cells/uL). Performed By: #### 5 7021-8 ####SHWETA ROCHA ([id number])[facility] ([facility])[address] [place] [address] Neutrophils/100 WBC (Bld) 52.6 % Normal 40.0-80.0 [facility] Comment on above: Performed By: #### 5 7021-8 ####SHWETA ROCHA (65760)[facility] ([facility])[address] [place] [address] 21506 Nucleated RBC/100 WBC (Bld) [Ratio] 0.0 /100 WBCs Normal 0.0-0.0 [facility] Comment on above: Performed By: #### 5 7021-8 ####SHWETA ROCHA (33191)[facility] ([facility])[address] [place] [address] Platelets (Bld) [#/Vol] 403 x10*3/uL Normal 150-450 [facility] Comment on above: Performed By: #### 5 7021-8 ####SHWETA ROCHA (62292)[facility] ([facility])[address] [place] [address] 93921 RBC (Bld) [#/Vol] 4.96 x10*6/uL Normal 4.00-5.20 [facility] Comment on above: Performed By: #### 5 7021-8 ####SHWETA ROCHA (43146)[facility] ([facility])[address] [place] [address]27[address] WBC (Bld) [#/Vol] 6.2 x10*3/uL Normal 4.4-11.3 [facility] Comment on above: Performed By: #### 5 7021-8 ####SHWETA ROCHA (06381)[facility] ([facility])[address] [place] [address]447 Ceruloplasminon 04-01-2023 Ceruloplasmin [Mass/Vol] 30.7 mg/dL Normal 20.0-60.0 [facility] Comment on above: Performed By: #### 2 064-4 ####JOLENE Cantu (79732)[facility] ([facility])[address] [place] [address] Coagulation tissue factor in ducedon 04-01-2023 PT Coag (PPP) [Time] 10.1 s Normal 9.8-12.8 [facility] Comment on above: Performed By: #### 5 902-2 ####JOLENE Cantu ([id number])[facility] ([facility])[address] [place] [address] 16656 Comprehensive metabolic 2000 panelon 04-01-2023 Albumin BCP dye [Mass/Vol] 4.3 g/dL Normal 3.4-5.0 [facility] Comment on above: Performed By: #### 2 4323-8 ####SHWETA ROCHA (94238)[facility] ([facility])[address] [place] [address]10 ALP [Catalytic activity/Vol] 97 U/L Normal 33-110 [facility] Comment on above: Performed By: #### 2 4323-8 ####SHWETA ROCHA (32252)[facility] ([facility])[address] [place] [address] 657[address] ALT With P-5'-P [Catalytic activity/Vol] 144 U/L High 7-45 [facility] Comment on above: Result Comment: Katia ents treated with Sulfasalazine may generate falsely decreased results for ALT. Performed By: #### 2 4323-8 ####BEATRIZIBRENE BARNETT RIO KEY ([id number])[facility] ([facility])[address] , [place] [address] Anion gap [Moles/Vol] 14 mmol/L Normal 10-20 [facility] Comment on above: Performed By: #### 2 4323-8 ####BEATRIZIBRENE BARNETT [address] ([id number])[facility] ([facility])[address] , [place] [address] AST With P-5'-P [Catalytic activity/Vol] 120 U/L High 9-39 [facility] Comment on above: Performed By: #### 2 4323-8 ####BEATRIZIBRENE ADAMA KEY (49214)[facility] ([facility])[address] [place] [address] Bilirubin [Mass/Vol] 0.6 mg/dL Normal 0.0-1.2 [facility] Comment on above: Performed By: #### 2 4323-8 ####BEATRIZIBRENE ADAMA KEY (95655)[facility] ([facility])[address] [place] [address] Calcium [Mass/Vol] 9.4 mg/dL Normal 8.6-10.3 [facility] Comment on above: Performed By: #### 2 4323-8 ####BEATRIZIBRENE ADAMA KEY (89778)[facility] ([facility])[address] , [place] [address] Chloride [Moles/Vol] 101 mmol/L Normal 98-107 [facility] Comment on above: Performed By: #### 2 4323-8 ####BEATRIZIBELIGANESH ADAMA KEY (85118)[facility] (EM)[address] , [place] [address] CO2 [Moles/Vol] 29 mmol/L Normal 21-32 [facility] Comment on above: Performed By: #### 2 4323-8 ####BEATRIZIBELIGANESH ADAMA KEY (15403)[facility] (EM[facility])[address] , [place] [address] Creatinine [Mass/Vol] 0.74 mg/dL Normal 0.50-1.05 [facility] Comment on above: Performed By: #### 2 4323-8 ####SHWETA ROCHA (88544)[facility] ([facility])[address] [place] [address] GFR/1.73 sq M.predicted MDRD (S/P/Bld) [Vol rate/Area] mL/min/{1.73_m2} Normal >60 [facility] Comment on above: Result Comment: Calc ulations of estimated GFR are performed using the 2020 CKD-EPI Study Refit equation without the race variable for the IDMS-Traceable creatinine methods.https://jasn.asnjournals.org/content//A .6267722126 Performed By: #### 2 4323-8 ####SHWETA ROCHA (64606)[facility] ([facility])[address] [place] [address] Glucose [Mass/Vol] 81 mg/dL Normal 74-99 [facility] Comment on above: Performed By: #### 2 4323-8 ####SHWETA ROCHA (99598)[facility] ([facility])[address] [place] [address] Potassium [Moles/Vol] 5.5 mmol/L High 3.5-5.3 [facility] Comment on above: Performed By: #### 2 4323-8 ####SHWETA ROCHA (30612)[facility] ([facility])[address] [place] [address] Protein [Mass/Vol] 7.6 g/dL Normal 6.4-8.2 [facility] Comment on above: Performed By: #### 2 4323-8 ####SHWETA ROCHA (98974)[facility] ([facility])[address] [place] [address] Sodium [Moles/Vol] 138 mmol/L Normal 136-145 [facility] Comment on above: Performed By: #### 2 4323-8 ####SHWETA ROCHA (83941)[facility] ([facility])[address] [place] [address] Urea nitrogen [Mass/Vol] 11 mg/dL Normal 6-23 [facility] Comment on above: Performed By: #### 2 4323-8 ####SHWETA BARNETT [address] ([id number])[facility] ([facility])[address] [place] [address] Ferritinon 04-01-2023 Ferritin [Mass/Vol] 77 ng/mL Normal 8-150 [facility] Comment on above: Performed By: #### 2 276-4 ####JOLENE Cantu (27476)[facility] ([facility])[address] [place] [address] 19567 HCV RNA panel LINDSEY+probeon HCV PCR QUANT [id number] IU/mL High Not detected [facility] Comment on above: Order Comment: [...] Diagnostic Laboratory, Department of Pathology, [facility]. Performed By: #### 5 0023-1 ####JOLENE Cantu ([id number])[facility] ([facility])[address] [place] [address] HCV PCR W/GENOTYPE REFLEX ORDERED Aliquot sent to Genetics Lab for genotyping Normal [facility] Comment on above: Order Comment: Repor [...] Diagnostic Laboratory, Department of Pathology, [facility]. Performed By: #### 5 0023-1 ####JOLENE Cantu ([id number])[facility] ([facility])[address] [place] [address] HCV RNA RESULT Detected Abnormal Not detected [facility] Comment on above: Order Comment: Repor table Range: 15-100,000,000 IU/mL.The javier HCV is an in vitro nucleic acid amplification test for both the detection and quantitation of hepatitis C virus (HCV) RNA, in human EDTA plasma or serum, of HCV antibody positive or HCV-infected individuals on the javier Monitor My Meds0/8800 Systems. Dual probes are used to detect [...] Diagnostic Laboratory, Department of Pathology, [facility]. Performed By: #### 5 0023-1 ####JOLENE Cantu ([id number])[facility] ([facility])[address] [place] [address] HCV RNA, PCR LOG 7.24 Log IU/mL Normal [facility] Comment on above: Order Comment: Repor table Range: 15-100,000,000 IU/mL.The javier HCV is an in vitro nucleic acid amplification test for both the detection and quantitation of hepatitis C virus (HCV) RNA, in human EDTA plasma or serum, of HCV antibody positive or HCV-infected individuals on the javier Monitor My Meds0/8800 Systems. Dual probes are used to detect [...] Diagnostic Laboratory, Department of Pathology, [facility]. Performed By: #### 5 0023-1 ####JOLENE Cantu ([id number])[facility] ([facility])[address] [place], [place] [address] HCV genotype Sequencing Nomo n 04-01-2023 ELECTRONICALLY SIGNED BY Stephen Nguyen MD PhD [facility] Comment on above: Performed By: #### 9 2731-9 ####STEPHEN NGUYEN ([id number]) [facility] ([facility])[address] [place], [place] [address] HEPATITIS C INTERPRETATION INTERPRETATION [facility] Comment on above: Performed By: #### 9 2731-9 ####STEPHEN NGUYEN ([id number]) [facility] ([facility])[address] [place], [place] [address] HIV 1+2 Ab+HIV1 p24 Agon HIV 1+2 Ab+HIV1 p24 Ag IA Ql Non-Reactive Normal Nonreactive [facility] Comment on above: Order Comment: HIV A g/Ab screen is performed using the Siemens [facility] HIV Ag/Ab Combo assay which detects the presence of HIV p24 antigen as well as antibodies to HIV-1 (Group M and O) and HIV-2.No laboratory evidence of HIV infection. If acute HIV infection is suspected, consider testing for HIV RNA by PCR (viral load). Performed By: #### 5 6888-1 ####JOLENE Cantu ([id number])[facility] ([facility])[address] [place] [address] Hepatitis A virus Abon 04-01 HAV Ab IA Ql (S) Reactive Abnormal Nonreactive [facility] Comment on above: Order Comment: Bioti n interference may cause falsely elevated results. Patients taking a Biotin dose of up to 5 mg/day should refrain from taking Biotin for 24 hours before sample collection. Providers may contact their local laboratory for further information. Performed By: #### 1 3951-9 ####JOLENE Cantu ([id number])[facility] ([facility])[address] [place] [address] Hepatitis B virus core Abon 04-01-2023 HBV core Ab Ql (S) Non-Reactive Normal Nonreactive [facility] Comment on above: Order Comment: Resul ts from patients taking biotin supplements or receiving high-dose biotin therapy should be interpreted with caution due to possible interference with this test. Providers may contact their local laboratory for further information. Performed By: #### 1 6933-4 ####JOLENE Cantu ([id number])[facility] ([facility])[address] [place] [address] Hepatitis B virus surface Ab on 04-01-2023 HBV surface Ab Qn (S) <3.1 Normal <10.0 [facility] Comment on above: Result Comment: Inte rpretive Criteria: <10 mIU/mL Nonreactive >=10 mIU/mL ReactiveBiotin interference may cause falsely decreased results. Patients taking a Biotin dose of up to 5 mg/day should refrain from taking Biotin for 24 hours before sample collection. Providers may contact their local laboratory for further information. Performed By: #### 1 6935-9 ####JOLENE Cantu ([id number])[facility] ([facility])[address] [place] [address] Hepatitis B virus surface Ag on 04-01-2023 HBV surface Ag IA Ql Non-Reactive Normal Nonreactive [facility] Comment on above: Result Comment: Biot in interference may cause falsely decreased results. Patients taking a Biotin dose of up to 5 mg/day should refrain from taking Biotin for 24 hours before sample collection. Providers may contact their local laboratory forfurther information. Performed By: #### 5 196-1 ####JOLENE Cantu ([id number])[facility] ([facility])[address] [place], [place] [address] Hepatitis C virus genotypeon 04-01-2023 HCV genotype Sequencing Nom Genotype 1a Normal Genotypes: 1, 1a, 1b, 1c, 1d, 1e, 1g, 1h, 1i, 1j, 1k, 1l, 1m, 1n, 2, 2a, 2b, 3, 3a, 3b, 3d, 3e, 3g, 3h, 3i, 3k, 4, 4a, 4b, 5, 5a, 6, 6a, 6b [facility] Comment on above: Performed By: #### 9 2731-9 ####STEPHEN NGUYEN ([id number]) [facility] (TL)[address] [place] [address] Iron and Iron binding capaci ty panelon 04-01-2023 Iron [Mass/Vol] 119 ug/dL Normal 35-150 [facility] Comment on above: Performed By: #### 5 0190-8 ####SHWETA ROCHA ([id number])[facility] ([facility])[address] [place] [address] Iron binding capacity [Mass/Vol] 465 ug/dL High 240-445 [facility] Comment on above: Performed By: #### 5 0190-8 ####SHWETA ROCHA ([id number])[facility] ([facility])[address] [place] [address] Iron binding capacity.unsaturated [Mass/Vol] 346 ug/dL Normal 110-370 [facility] Comment on above: Performed By: #### 5 0190-8 ####SHWETA ROCHA ([id number])[facility] ([facility])[address] [place] [address] Iron saturation [Mass fraction] 26 % Normal 25-45 [facility] Comment on above: Performed By: #### 5 0190-8 ####SHWETA ROCHA ([id number])[facility] ([facility])[address] [place] [address] Mitochondria Abon 04-01-2023 Mitochondria Ab IF Ql (S) Negative Normal Negative [facility] Comment on above: Performed By: #### 1 7284-1 ####JOLENE Cantu ([id number])[facility] ([facility])[address] [place] [address] Nuclear Abon 04-01-2023 Nuclear Ab Hep2 substrate Ql (S) Negative Normal Negative [facility] Comment on above: Result Comment: The Antinuclear Antibody (BEATRIZ) test was performed usingindirect immunofluorescence assay with HEp-2 cells slide. Performed By: #### 5 9069-5 ####JOLENE Cantu ([id number])[facility] ([facility])[address] [place] [address] PHOSPHATIDYLETHANOL (PETH), WHOLE BLOOD, QUANTITATIVEon 04-01-2023 Laboratory report See Note Normal [facility] Comment on above: Result Comment: Auth orized individuals can access the [facility] using the following link:[email or web address] Performed By: #### P FLAKO ####[facility] ([place]) ([id number])[address] [place] [address] PETH INTERPRETATION See Note Normal [facility] Comment on above: Result Comment: Phos [...] was developed and its performance characteristicsdetermined by [facility]. It has not been cleared orapproved by the U.S. Food and Drug Administration. This test wasperformed in a CLIA-certified laboratory and is intended forclinical purposes.Performed By: [facility] [place], [place] [address]Wxgcrccffi Director: Miki Neal MD, PhDCLIA Number: [id number] Performed By: #### P ETHA ####[facility] ([place]) ([id number])[address] [place] [address] Phosphatidylethanol 16:0-18:1 <10 Normal [facility] Comment on above: Result Comment: PEth 16:0/18:1 (POPEth)Less than 10 ng/mL............Not detectedLess than 20 ng/mL............Abstinence or light vcywbzqkxxstfuzcxe26 - 200 ng/mL................Moderate alcohol consumptionGreater than 200 ng/mL........Heavy alcohol consumption or chronicalcohol use(Reference: Enrike Mirza and Noé Dan 2018 J. Forensic Sci) Performed By: #### P ETHA ####[facility] ([facility]) ([id number])[address] [place] [address] Phosphatidylethanol 16:0-18:2 <10 Normal [facility] Comment on above: Result Comment: Refe rence ranges are not well established. Performed By: #### P ETHA ####[facility] ([facility]) ([id number])[address] [place] [address] PT Coag (PPP) [Time]on 04-01 INR Coag (PPP) [Relative time] 0.9 Normal 0.9-1.1 [facility] Comment on above: Performed By: #### 5 902-2 ####JOLENE Cantu ([id number])[facility] ([facility])[address] [place] [address] Smooth muscle Abon 4 Smooth muscle Ab IF Ql (S) Negative Normal Negative [facility] Comment on above: Performed By: #### 2 6971-2 ####JOLENE Cantu ([id number])[facility] ([facility])[address] [place] [address] Consent for Treatmenton Consent for Treatment [id number]#1.00T IFF Normal [facility] Discharge Instructionson Discharge Instructions [id number]#1.00 TIFF Normal [facility] ED Clinical Summaryon 2023 ED Clinical Summary Normal [facility] ED Note-Physicianon 03-26-19 ED Note-Physician Normal [facility] Comment on above: Result Comment: Elec tronically Signed By: Jorge Mcintosh DO\.br\Date and Time Signed: 03/26/23 12:29 EST ED Patient Education Noteon 03-26-2023 ED Patient Education Note Normal [facility] ED Patient Summaryon 024 ED Patient Summary Normal [facility] Consent for Treatmenton 02-24 Consent for Treatment [id number]#1.00T IFF Normal [facility] Discharge Instructionson Discharge Instructions [id number]#1.00 TIFF Normal [facility] ED Clinical Summaryon 2022 ED Clinical Summary Normal [facility] ED Note-Physicianon 03-23-20 ED Note-Physician Normal [facility] Comment on above: Result Comment: Elec tronically Signed By: Landon Tidwell PA-C.br\Date and Time Signed: 03/23/23 13:46 EST\.br\Electronically Co-Signed By: Nikhil Tubbs DO.br\Date and Time Co-Signed: 03/23/23 15:51 EST ED Patient Education Noteon 03-23-2023 ED Patient Education Note Normal [facility] ED Patient Summaryon 023 ED Patient Summary Normal [facility] Consent for Treatmenton 02-23 Consent for Treatment [id number]#1.00T IFF Normal [facility] Discharge Instructionson Discharge Instructions [id number]#1.00 TIFF Normal [facility] ED Clinical Summaryon 2022 ED Clinical Summary Normal [facility] ED Note-Physicianon 03-20-20 ED Note-Physician Normal [facility] Comment on above: Result Comment: Elec tronically Signed By: Landon Tidwell PA-C\.br\Date and Time Signed: 03/20/23 13:40 EST\.br\Electronically Co-Signed By: Elisa Sánchez DO\.br\Date and Time Co-Signed: 03/20/23 15:13 EST ED Patient Education Noteon 03-20-2023 ED Patient Education Note Normal [facility] ED Patient Summaryon 023 ED Patient Summary Normal [facility] Auto Diffon 03-11-2023 Basophils/100 WBC (Bld) 0.3 % Normal 0.0-2.0 [facility] Comment on above: Order Comment: Order Added by Discern Expert. Performed By: #### 2 336108, 5274619, 5157381, 42673852, 3291057, 0788900 ####[facility] [address] [place] [address] Basophils/Leukocytes Auto (Bld) [Pure # fraction] 0.0 E9/L Normal 0.0-0.2 [facility] Comment on above: Order Comment: Order Added by Discern Expert. Performed By: #### 2 513787, 8250623, 1234537, 01287603, 6206512, 5712585 ####[facility] [address] [place] [address] Eosinophils/100 WBC (Bld) 5.6 % Normal 0.0-8.0 [facility] Comment on above: Order Comment: Order Added by Discern Expert. Performed By: #### 2 716696, 0723703, 4134969, 51661299, 8761962, 6206232 ####[facility] [address] [place] [address] Eosinophils/Leukocytes Auto (Bld) [Pure # fraction] 0.3 E9/L Normal 0.0-0.5 [facility] Comment on above: Order Comment: Order Added by Discern Expert. Performed By: #### 2 354380, 0908958, 4899788, 79275016, 8834818, 3998879 ####[facility] [address] [place] [address] Lymphocytes/100 WBC (Bld) 28.4 % Normal 14.0-50.0 [facility] Comment on above: Order Comment: Order Added by Discern Expert. Performed By: #### 2 083034, 6188341, 0269339, 22030613, 8942114, 1158458 ####[address] [address] Lymphocytes/Leukocytes Auto (Bld) [Pure # fraction] 1.8 E9/L Normal 1.0-4.0 [facility] Comment on above: Order Comment: Order Added by Discern Expert. Performed By: #### 2 429030, 2988500, 2743718, 44707446, 6925368, 2792426 ####[address] [place] [address] Monocytes/100 WBC (Bld) 9.4 % Normal 4.0-14.0 [facility] Comment on above: Order Comment: Order Added by Discern Expert. Performed By: #### 2 480034, 6303300, 8333054, 91595381, 1348168, 4350053 ####[address] [place] [address] Monocytes/Leukocytes Auto (Bld) [Pure # fraction] 0.6 E9/L Normal 0.2-1.0 [facility] Comment on above: Order Comment: Order Added by Discern Expert. Performed By: #### 2 181133, 1634779, 8202593, 00309438, 5180720, 0965029 ####[address] [place] [address] Neutrophils/100 WBC (Bld) 56.3 % Normal 36.0-75.0 [facility] Comment on above: Order Comment: Order Added by Discern Expert. Performed By: #### 2 281877, 3539292, 4424695, 59244155, 6205221, 6299665 ####[address] [place] [address] Neutrophils/Leukocytes Auto (Bld) [Pure # fraction] 3.5 E9/L Normal 2.0-7.5 [facility] Comment on above: Order Comment: Order Added by Discern Expert. Performed By: #### 2 637749, 9698543, 4744187, 06025070, 6165069, 2443409 ####[address] [place] [address] BMPon 03-11-2023 Anion gap [Moles/Vol] 9 mmol/L Normal 6-16 [facility] Comment on above: Performed By: #### 2 829315, 6530608, 0309000, 68822196, 6078259, 4851739 ####[address] [place] [address] BUN/Creat Ratio 13 No Units Normal 10-20 [facility] Comment on above: Performed By: #### 2 304417, 8894371, 1469644, 18594946, 6841022, 9733633 ####[facility] [address] [place] [address] Calcium [Mass/Vol] 8.5 mg/dL Low 8.9-11.1 [facility] Comment on above: Performed By: #### 2 270570, 4368522, 9731243, 33602974, 8410949, 4418752 ####[facility] [address] [place] [address] Chloride [Moles/Vol] 105 mmol/L Normal 101-111 [facility] Comment on above: Performed By: #### 2 154594, 1244304, 4169997, 23605064, 7457753, 0191637 ####[facility] [address] [place] [address] CO2 [Moles/Vol] 27 mmol/L Normal 21-31 [facility] Comment on above: Performed By: #### 2 557293, 4747092, 2596412, 42230516, 8437829, 4508814 ####[facility] [address] [place] [address] Creatinine [Mass/Vol] 0.7 mg/dL Normal 0.5-1.3 [facility] Comment on above: Performed By: #### 2 479966, 9089488, 2232812, 30257464, 2919954, 4822978 ####[facility] [address] [place] [address] Glucose [Mass/Vol] 104 mg/dL Normal 55-199 [facility] Comment on above: Performed By: #### 2 699058, 0203622, 1042324, 66388108, 8885662, 3208965 ####[facility] [address] [place] [address] Potassium [Moles/Vol] 4.0 mmol/L Normal 3.5-5.3 [facility] Comment on above: Performed By: #### 2 745568, 5123534, 3170937, 21869689, 8573041, 1174459 ####[facility] [address] [place] [address] Sodium [Moles/Vol] 137 mmol/L Normal 135-145 [facility] Comment on above: Performed By: #### 2 605408, 4130051, 8396082, 16047940, 2586104, 2351904 ####[facility] [address] [place] [address] Urea nitrogen [Mass/Vol] 9 mg/dL Normal 5-21 [facility] Comment on above: Performed By: #### 2 450442, 5229323, 4722177, 72892184, 3215259, 4587871 ####[facility] [address] [place] [address] CBC w/ Auto Diffon Erythrocyte distribution width (RBC) [Ratio] 13.1 % Normal 10.9-14.2 [facility] Comment on above: Performed By: #### 2 477433, 6744278, 9463761, 93449678, 0544287, 1674331 ####[address] [address] Hematocrit (Bld) [Volume fraction] 46.1 % High 34.0-46.0 [facility] Comment on above: Performed By: #### 2 630321, 5819092, 4235428, 98267232, 2703894, 6645985 ####[address] [address] Hemoglobin (Bld) [Mass/Vol] 15.4 g/dL Normal 12.0-16.0 [facility] Comment on above: Performed By: #### 2 360751, 5238983, 7355935, 98314638, 0831638, 6617352 ####[address] [address] MCH (RBC) [Entitic mass] 32.0 pg Normal 27.0-34.0 [facility] Comment on above: Performed By: #### 2 756730, 3505324, 6813347, 49956270, 7787739, 1133338 ####[address] [address] MCHC (RBC) [Mass/Vol] 33.5 g/dL Normal 31.4-36.0 [facility] Comment on above: Performed By: #### 2 595460, 5374167, 9351523, 70663917, 4909674, 6633698 ####[address] [place] [address] MCV (RBC) [Entitic vol] 95.7 fL Normal 80.0-100.0 [facility] Comment on above: Performed By: #### 2 973336, 6576935, 8944113, 10389089, 8602874, 4460052 ####[facility] [address] [place] [address] Platelet mean volume (Bld) [Entitic vol] 9.0 fL Normal 6.4-10.8 [facility] Comment on above: Performed By: #### 2 033348, 8949023, 2877419, 97632850, 8580647, 0642765 ####[facility] [address] [place] [address] Platelets (Bld) [#/Vol] 248.0 E9/L Normal 150.0-500.0 [facility] Comment on above: Performed By: #### 2 487753, 3840609, 0182592, 99596502, 7130021, 6887773 ####[address] [address] RBC (Bld) [#/Vol] 4.8 E12/L Normal 4.3-5.9 [facility] Comment on above: Performed By: #### 2 111875, 9392278, 3968526, 55832171, 4927030, 6763785 ####[address] [place] [address] WBC corrected for nucl RBC Auto (Bld) [#/Vol] 6.2 E9/L Normal 4.0-11.0 [facility] Comment on above: Performed By: #### 2 863089, 8018481, 3560234, 44212061, 2658107, 7746280 ####[address] [place] [address] CHEMISTRYOrdered By: SYSTEM SYSTEM on 03-11-2023 Albumin [...] for Treatmenton 02-22 Consent for Treatment [id number]#1.00T IFF Normal [facility] Discharge Instructionson Discharge Instructions [id number]#1.00 TIFF Normal [facility] ED Clinical Summaryon 2022 ED Clinical Summary Normal [facility] ED Note-Physicianon 03-11-20 ED Note-Physician Normal [facility] Comment on above: Result Comment: Elec tronically Signed By: Jorge Mcintosh DO\.br\Date and Time Signed: 03/11/23 10:39 EST ED Patient Education Noteon 03-11-2023 ED Patient Education Note Normal [facility] ED Patient Summaryon 023 ED Patient Summary Normal [facility] HEMATOLOGYOrdered By: SYSTEM SYSTEM on [...] % FT HemeAutoSS Hematocrit (Bld) [Volume fraction] 46.1 % High 34.0 - 46.0 % FT HemeAutoSS Hemoglobin (Bld) [Mass/Vol] 15.4 g/dL Normal 12.0 - 16.0 gm/dL FT HemeAutoSS MCH (RBC) [Entitic mass] 32.0 pg Normal 27.0 - 34.0 pg FT HemeAutoSS MCHC (RBC) [Mass/Vol] 33.5 g/dL Normal 31.4 - 36.0 gm/dL FT HemeAutoSS MCV (RBC) [Entitic vol] 95.7 fL Normal 80.0 - 100.0 fL FT HemeAutoSS Platelet mean volume (Bld) [Entitic vol] 9.0 fL Normal 6.4 - 10.8 fL FT [facility]eAutoSS Platelets (Bld) [#/Vol] 248.0 E9/L Normal 150.0 - 500.0 E9/L FT HemeAutoSS RBC (Bld) [#/Vol] 4.8 E12/L Normal 4.3 - 5.9 E12/L FT HemeAutoSS WBC corrected for nucl RBC Auto (Bld) [#/Vol] 6.2 E9/L Normal 4.0 - 11.0 E9/L FT HemeAutoSS Hep Func Panelon 03-11-2023 Albumin [Mass/Vol] 4.1 g/dL Normal 3.3-5.0 [facility] Comment on above: Performed By: #### 2 749610, 2969839, 7244000, 46096997, 3917981, 3039070 ####[facility] [address] [place] [address] Albumin/Globulin [Mass ratio] 1.4 {ratio} Normal 1.1-2.2 [facility] Comment on above: Performed By: #### 2 976352, 5520763, 3048394, 41339344, 9754601, 4356271 ####[facility] [address] [place] [address] Alk Phos 68 Int._Unit/L Normal 21-98 [facility] Comment on above: Performed By: #### 2 679759, 3711691, 2232114, 59749306, 1207559, 9357422 ####[facility] [address] [place] [address] ALT 66 Int._Unit/L High 6-46 [facility] Comment on above: Performed By: #### 2 589548, 7338993, 5415646, 86072579, 8308150, 7514969 ####[facility] [address] [place] [address] AST 51 Int._Unit/L High 5-43 [facility] Comment on above: Performed By: #### 2 458437, 3543642, 5918827, 90578331, 6672062, 3096124 ####[address] [address] Bili Direct 0.2 mg/dL Normal 0.1-0.4 [facility] Comment on above: Performed By: #### 2 545693, 0850982, 9392572, 85381015, 0683207, 8316956 ####[facility] [address] [place] [address] Bili Indirect 0.4 mg/dL Normal 0.1-0.[address] [facility] Comment on above: Performed By: #### 2 776313, 9102943, 1635281, 07479389, 4186654, 9049885 ####[facility] [address] [place] [address] Bili Total 0.6 mg/dL Normal 0.0-1.1 [facility] Comment on above: Performed By: #### 2 933290, 4291346, 8107149, 33108705, 8330003, 8638968 ####[facility] [address] [place] [address] Globulin (S) [Mass/Vol] 3.0 g/dL Normal 1.4-4.0 [facility] Comment on above: Performed By: #### 2 991813, 7909162, 5478315, 62735342, 0432355, 2021429 ####[facility] [address] [place] [address] Protein [Mass/Vol] 7.1 g/dL Normal 6.0-7.8 [facility] Comment on above: Performed By: #### 2 296249, 8464886, 0827994, 64243451, 7517290, 1678916 ####[facility] [address] [place] [address] Lipase Levelon 03-11-2023 Lipase Lvl 15 unit/L Normal 13-58 [facility] Comment on above: Performed By: #### 2 519473, 2073620, 4210599, 17774581, 3657666, 0046856 ####[facility] [address] [place] [address] MICRO OTHER TESTSOrdered By: Cheyanne Rosas on 03-11-2023 Rapid COV Int NEG Ctl Pass (03/11/23 9:34 AM) Normal [facility] Man Sero Rapid COV Int POS Ctl Pass (03/11/23 9:34 AM) Normal [facility] Sero SARS-CoV+SARS-CoV-2 (COVID-19) Ag IA.rapid Ql (Resp) Not Detected 1 (03/11/23 9:34 AM) Normal Not Detected [facility] Sero Comment on above: Interpretive Data: Susie marino [employer] Veritor System for Rapid Detection of SARS-CoV-2 [...] under an Emergency Use Authorization. In the [facility], this test has not been FDA cleared [...] other viruses or pathogens; and, in the [facility], this test is only authorized for the duration of the declaration that circumstances exist justifying the authorization of emergency use of in vitro diagnostics for detection and/or diagnosis of the virus that causes COVID-19 under Section 564(b)(1) of the Act, 21 U.S.C. 360bbb-3(b)(1), unless the authorization is terminated or revoked sooner. Rapid COVID Antigen ([facility])on 03-11-2023 Rapid COV Int NEG Ctl Pass Normal [facility] Comment on above: Performed By: #### 2 [id number] ####[facility] [address] [place] [address] Rapid COV Int POS Ctl Pass Normal [facility] Comment on above: Performed By: #### 2 [id number] ####[address] [place] [address] SARS-CoV+SARS-CoV-2 (COVID-19) Ag IA.rapid Ql (Resp) Not detected Normal Not Detected [facility] Comment on above: Result Comment: The [employer] Veritor? System for Rapid Detection of SARS-CoV-2 [...] or revoked sooner. Performed By: #### 2 [id number] ####[facility] [id number] [place] [address] eGFRon 03-11-2023 GFR/1.73 sq M.predicted among non-blacks MDRD (S/P/Bld) [Vol rate/Area] mL/min/{1.73_m2} Normal >=59 [facility] Comment on above: Order Comment: Order added by Discern Expert. Performed By: #### [id number] ####[facility] [address] [place] [address] Liver limitedon 3 No focal intrahepati c lesions noted. The patient is status post cholecystectomy. MACRO: None Signed by: Harshad Tran 02/14/2023 7:30 AM Dictation workstation: [id number] Interpreted By: Harshad Tran, STUDY: US ABDOMEN LIMITED LIVER; 02/13/2023 7:27 am INDICATION: Signs/Symptoms:Hx of Hep C. COMPARISON: None. ACCESSION NUMBER(S): [id number] ORDERING CLINICIAN: ANTONIO HUSAIN TECHNIQUE: Multiple images [...] No hydronephrosis or renal calculi are seen. Harshad Bello MD - 02/14/2023 Interpreted By: Harshad Tran, STUDY: US ABDOMEN LIMITED LIVER; 02/13/2023 7:27 am INDICATION: Signs/Symptoms:Hx of Hep C. COMPARISON: None. ACCESSION NUMBER(S): [id number] ORDERING CLINICIAN: ANTONIO HUSAIN TECHNIQUE: Multiple images [...] Harshad Tran 02/14/2023 7:30 AM Dictation workstation: [id number] [facility] Work Phone: US Liver limitedOrdered By: Harshad Tran on 02-14-2023 [facility] Work Phone: US ABDOMEN LIMITED LIVERon 1 04-15-2022 US ABDOMEN LIMITED LIVER Interpreted By: Harshad Tran, STUDY: US ABDOMEN LIMITED LIVER; 02/13/2023 7:27 am INDICATION: Signs/Symptoms:Hx of Hep C. COMPARISON: None. ACCESSION NUMBER(S): [id number] ORDERING CLINICIAN: ANTONIO HUSAIN TECHNIQUE: Multiple images [...] Harshad Tran 02/14/2023 7:30 AM Dictation workstation: [id number] Normal [facility] US Liver limitedon Radiology Study observation (narrative) [facility] Work Phone: SEROLOGYOrdered By: Zoë lucero on 12-13-2022 HCG.beta subunit (U) [Moles/Vol] Negative Normal [facility] [place] Man Sero URINALYSISOrdered By: Zoë gordon on 12-13-2022 Bacteria LM Ql (Urine sed) Trace /HPF Normal Trace/HPF FT UA Auto SS Bilirubin Ql (U) 1+ *ABN* (12/13/22 5:52 PM) Invalid Interpretation Code Negative [facility] UA Auto SS Calcium oxalate crystals LM Ql (Urine sed) Present (12/13/22 5:52 PM) Normal [facility] UA Auto SS Clarity (U) SL CLOUDY Invalid Interpretation Code FT UA Auto SS Color (U) Yellow (12/13/22 [...] Interpretation Code Negative [facility] UA Auto SS [place].plasma/[place] .RBC (Bld) [Mass ratio] 0-3 /HPF Normal [...] [facility] UA Auto SS Urobilinogen Qn (U) [id number] {Jan'U}/dL Normal 0.0 - 1.0 EU/dL [facility] [...] 132 mg/dL Normal 55 - 199 mg/dL [facility] Remisol Potassium [Moles/Vol] 4.7 mmol/L Normal 3.5 [...] 12-10-2022 ALT [Catalytic activity/Vol] 39 U/L 7-52 [facility] Albumin [Mass/volume] in Ser um or Plasma by Bromocresol green (BCG) dye binding methoOrdered By: Mary Beth Sloan on 12-10-2022 Albumin BCG dye [Mass/Vol] 3.7 g/dL 3.5-5.7 [facility] Alkaline phosphatase [Enzyma tic activity/volume] in Serum or PlasmaOrdered By: Mary Beth Sloan on 12-10-2022 ALP [Catalytic activity/Vol] 70 U/L 34-104 [facility] Amorphous urine sedimentOrde red By: Deb Carmichael on 12-10-2022 Amorphous sediment LM Ql (Urine sed) 2+ [LPF] [facility] Aspartate aminotransferase [ Enzymatic activity/volume] in Serum or PlasmaOrdered By: Mary Beth Sloan on 12-10-2022 AST [Catalytic activity/Vol] 28 U/L 13-39 [facility] Automated erythrocytes count in urine sediment (number/area)Ordered By: Deb Carmichael on 12-10-2022 RBC Auto (Urine sed) [#/Area] 10-19 [HPF] 0-4 [facility] Automated leukocytes count i n urine sediment (number/area)Ordered By: Deb Carmichael on 12-10-2022 WBC Auto (Urine sed) [#/Area] 3-4 [HPF] 0-4 [facility] Basophils Auto (Bld) [#/Vol] Ordered By: Mary Beth Sloan on 12-10-2022 Basophils (Bld) [#/Vol] 0.1 10*3/uL 0.0-0.2 [facility] Basophils/100 WBC Auto (Bld) Ordered By: Mary Beth Sloan on 12-10-2022 Basophils/100 WBC (Bld) 0.5 % . [facility] Bilirubin Test strip Ql (U)O rdered By: Deb Carmichael on 12-10-2022 Bilirubin Ql (U) Negative Negative [facility] Bilirubin.total [Mass/volume ] in Serum or PlasmaOrdered By: Mary Beth Sloan on 12-10-2022 Bilirubin [Mass/Vol] 0.3 mg/dL 0.3-1.0 [facility] Calcium [Mass/volume] in Ser um or PlasmaOrdered By: Mary Beth Sloan on 12-10-2022 Calcium [Mass/Vol] 8.3 mg/dL 8.6-10.3 [facility] Carbon dioxide, total [Moles /volume] in Serum or PlasmaOrdered By: Mary Beth Bullimore on 12-10-2022 CO2 [Moles/Vol] 22.2 mmol/L 21.0-31.[address] [facility] Chloride [Moles/volume] in S saw or PlasmaOrdered By: Mary Beth Bullimore on 12-10-2022 Chloride [Moles/Vol] 112 mmol/L 98-107 [facility] Color Auto (U)Ordered By: Co lucy Carmichael on 12-10-2022 Color (U) Yellow Yellow [facility] Creatinine [Mass/volume] in Serum or PlasmaOrdered By: Mary Beth Croweimore on 12-10-2022 Creatinine [Mass/Vol] 0.77 mg/dL 0.60-1.20 [facility] Eosinophils Auto (Bld) [#/Vo l]Ordered By: Mary Bethsusan Croweimore on 12-10-2022 Eosinophils (Bld) [#/Vol] 0.2 10*3/uL 0.0-0.45 [facility] Eosinophils/100 WBC Auto (Bl d)Ordered By: Mary Beth Sebastienimore on 12-10-2022 Eosinophils/100 WBC (Bld) 1.7 % . [facility] Erythrocyte distribution wid th Auto (RBC) [Ratio]Ordered By: Mary Beth Sebastiengurpreet on 12-10-2022 Erythrocyte distribution width (RBC) [Ratio] 13.3 % 11.9-15.3 [facility] Globulin Calc (S) [Mass/Vol] Ordered By: Mary Bethsusan Sloan on 12-10-2022 Globulin (S) [Mass/Vol] 3.1 g/dL [facility] Glucose [Mass/volume] in Ser um or PlasmaOrdered By: Mary Bethsusan Croweimore on 12-10-2022 Glucose [Mass/Vol] 111 mg/dL 70-100 [facility] Comment on above: ADA recommended refe rence rangeRandom Glucose Reference Range is dependent on time and content of last meal. Glucose of more than 200 mg/dL in a nonstressed, ambulatory subject supports the diagnosis of Diabetes Mellitus. Hematocrit Auto (Bld) [Volum e fraction]Ordered By: Mary Beth Sloan on 12-10-2022 Hematocrit (Bld) [Volume fraction] 39.3 % 34.0-46.4 [facility] Hemoglobin [Mass/volume] in BloodOrdered By: Mary Beth Sloan on 12-10-2022 Hemoglobin (Bld) [Mass/Vol] 13.4 g/dL 11.8-15.4 [facility] Ketones Auto test strip (U) [Mass/Vol]Ordered By: Deb Carmichael on 12-10-2022 Ketones (U) [Mass/Vol] Negative Negative [facility] - UrinalysisOrder ed By: Deb Carmichael on 12-10-2022 Hyaline casts LM Ql (Urine sed) 0-8 [LPF] 0-8 [facility] Leukocytes [#/volume] correc lisa for nucleated erythrocytes in Blood by Automated counOrdered By: Mary Beth Sloan on 12-10-2022 WBC corrected for nucl RBC Auto (Bld) [#/Vol] 11.1 10*3/uL 3.8-11.6 [facility] Lymphocytes Auto (Bld) [#/Vo l]Ordered By: Mary Beth Sloan on 12-10-2022 Lymphocytes (Bld) [#/Vol] 2.2 10*3/uL 1.00-4.8 [facility] Lymphocytes/100 WBC Auto (Bl d)Ordered By: Mary Beth Sloan on 12-10-2022 Lymphocytes/100 WBC (Bld) 20.0 % . [facility] MCH Auto (RBC) [Entitic mass ]Ordered By: Mary Beth Sloan on 12-10-2022 MCH (RBC) [Entitic mass] 33.4 pg 24.7-34.3 [facility] MCHC Auto (RBC) [Mass/Vol]Or dered By: Mary Beth Sloan on 12-10-2022 MCHC (RBC) [Mass/Vol] 34.0 g/dL 32.0-35.0 [facility] MCV Auto (RBC) [Entitic vol] Ordered By: Mary Beth Bullimore on 12-10-2022 MCV (RBC) [Entitic vol] 98.2 fL 80-100 [facility] Monocyte distribution width [Entitic volume] in Blood by AutomatedOrdered By: Mary Beth Bullimore on 12-10-2022 Monocyte distribution width Auto (Bld) [Entitic vol] 18.95 % 0.00-20.00 [facility] Monocytes Auto (Bld) [#/Vol] Ordered By: Mary Beth Bullimore on 12-10-2022 Monocytes (Bld) [#/Vol] 0.7 10*3/uL 0.0-0.8 [facility] Monocytes/100 WBC Auto (Bld) Ordered By: Mary Beth Bullimore on 12-10-2022 Monocytes/100 WBC (Bld) 6.2 % . [facility] Neutrophils Auto (Bld) [#/Vo l]Ordered By: Mary Beth Bullimore on 12-10-2022 Neutrophils (Bld) [#/Vol] 7.9 10*3/uL 1.8-7.7 [facility] Neutrophils/100 WBC Auto (Bl d)Ordered By: Mary Bethsusan Croweimore on 12-10-2022 Neutrophils/100 WBC (Bld) 71.6 % . [facility] Nitrite Test strip Ql (U)Ord ered By: Deb Carmichael on 12-10-2022 Nitrite Ql (U) Negative Negative [facility] No Panel InformationOrdered By: Mary Beth Sloan on 12-10-2022 Estimated GFR (CKD-EPI) > 60.0 mL/Min [facility] Creatinine Clearance (Chem 109.22 [facility] Nucleated erythrocytes [Pres ence] in Blood by Automated countOrdered By: Mary Beth Croweimore on 12-10-2022 Nucleated RBC Auto Ql (Bld) 0.1 /100{WBC} 0-0.5 [facility] Platelet mean volume Auto (B ld) [Entitic vol]Ordered By: Mary Beth Bullimore on 12-10-2022 Platelet mean volume (Bld) [Entitic vol] 8.5 fL 6.3-10.7 [facility] Platelets Auto (Bld) [#/Vol] Ordered By: Mary Beth Bullimore on 12-10-2022 Platelets (Bld) [#/Vol] 228 10*3/uL 150-450 [facility] Potassium [Moles/volume] in Serum or PlasmaOrdered By: Mary Beth Bullimore on 12-10-2022 Potassium [Moles/Vol] 3.9 mmol/L 3.5-5.1 [facility] Protein Auto test strip (U) [Mass/Vol]Ordered By: Deb Carmichael on 12-10-2022 Protein (U) [Mass/Vol] Negative Negative [facility] Protein [Mass/volume] in Ser um or PlasmaOrdered By: Mary Beth Bullimore on 12-10-2022 Protein [Mass/Vol] 6.8 g/dL 6.4-8.9 [facility] RBC Auto (Bld) [#/Vol]Ordere d By: Mary Beth Bullimore on 12-10-2022 RBC (Bld) [#/Vol] 4.00 10*6/uL 3.60-5.[address] [facility] Serum or plasma albumin/glob ulin mass ratioOrdered By: Mary Beth Bullimore on 12-10-2022 Albumin/Globulin [Mass ratio] 1.2 {ratio} [facility] Serum or plasma anion gap de terminationOrdered By: Mary Beth Bullimore on 12-10-2022 Anion gap [Moles/Vol] 6.7 mmol/L 6.0-15.0 [facility] Sodium [Moles/volume] in Ser um or PlasmaOrdered By: Mary Beth Bullimore on 12-10-2022 Sodium [Moles/Vol] 137 mmol/L 136-145 [facility] Specific gravity Auto test [...] 12-10-2022 Urea nitrogen [Mass/Vol] 12 mg/dL 7-25 [facility] Urine bacteria detection by automated methodOrdered By: Deb Carmichael on 12-10-2022 Bacteria Auto Ql (U) 3+ None Seen [facility] Urine clarity by refractomet ry automatedOrdered [...] (U) 1+ Negative [facility] Urine sediment crystal ident ification by light microscopyOrdered By: Deb Carmichael on 12-10-2022 Crystals LM Nom (Urine sed) None seen [HPF] [facility] Urobilinogen Auto test strip (U) [Mass/Vol]Ordered By: Deb Carmichael on 12-10-2022 Urobilinogen (U) [Mass/Vol] Normal mg/dL Normal [facility] WBC Auto (Bld) [#/Vol]Ordere d By: Mary Beth Sloan on 12-10-2022 WBC (Bld) [#/Vol] 11.1 10*3/uL 3.8-11.[address] [facility] pH Auto test strip (U)Ordere d By: Deb Carmichael on 12-10-2022 pH (U) 8.0 [pH] 5.0-9.0 [facility] Provider Note - ED v3on 10-23 Provider [...] SIGNS: T PRBP SpO2O2(LPM) %FiO2 Method 04-Nov-2022 22:29:[id number] 96 room air, no respiratory support MDM [...] she always goes to the same place, [facility] ER and that she is not frequently [...] Referenced From Triage - ED 04-Nov-2022 22:29 [facility] Triage - EDon 11-05-2022 Triage - [...] BMI (kg/m2): 42.617 Calculated BSA (m2) 2.20 [place] Coma Scale: Best Eye Response: (E4) spontaneous Best Motor Response: (M6) obeys commands Best Verbal Response: (V5) oriented [place] Score: 15 Allergies: yes [employer] History: hysterectomy Patient has homicidal thoughts: no [...] 04-Nov-2022 22:50 by Jayna August (RN) Normal [facility] Bilirubin Test strip Ql (U)O rdered By: Mary Beth Sloan on 10-16-2022 Bilirubin Ql (U) Negative Negative [facility] Color Auto (U)Ordered By: Pascale Sloan on 10-16-2022 Color (U) Yellow Yellow [facility] Ketones Auto test strip (U) [Mass/Vol]Ordered By: Mary Beth Sloan on 10-16-2022 Ketones (U) [Mass/Vol] Negative Negative [facility] Nitrite Test strip Ql (U)Ord ered By: Mary Beth Sloan on 10-16-2022 Nitrite Ql (U) Negative Negative [facility] Protein Auto test strip (U) [Mass/Vol]Ordered By: Mary Beth Sloan on 10-16-2022 Protein (U) [Mass/Vol] Negative Negative [facility] Specific gravity Auto test s trip (U) [...] on 08-02-2022 Bilirubin Ql (U) Negative Negative [facility] Color Auto (U)Ordered By: Romeo Bennett on 08-02-2022 Color (U) Yellow Yellow [facility] Ketones Auto test strip (U) [Mass/Vol]Ordered By: Narciso Bennett on 08-02-2022 Ketones (U) [Mass/Vol] Trace Negative [facility] - UrinalysisOrder ed By: Narciso Bennett on 08-02-2022 Hyaline casts LM Ql (Urine sed) 0-8 [LPF] 0-8 [facility] Nitrite Test strip Ql (U)Ord ered By: Narciso Bennett on 08-02-2022 Nitrite Ql (U) Negative Negative [facility] Protein Auto test strip (U) [Mass/Vol]Ordered By: Narciso Bennett on 08-02-2022 Protein (U) [Mass/Vol] Trace mg/dL Negative [facility] Specific gravity Auto test s trip (U) [...] Bacteria Auto Ql (U) 1+ None Seen [facility] Urine clarity by refractomet ry automatedOrdered [...] on 06-16-2022 Bilirubin Ql (U) Negative Negative [facility] Color Auto (U)Ordered By: Pascale Sloan on 06-16-2022 Color (U) Yellow Yellow [facility] Ketones Auto test strip (U) [Mass/Vol]Ordered By: Mary Beth Sloan on 06-16-2022 Ketones (U) [Mass/Vol] Negative Negative [facility] - UrinalysisOrder ed By: Mary Beth Sloan on 06-16-2022 Hyaline casts LM Ql (Urine sed) None seen [LPF] 0-8 [facility] Nitrite Test strip Ql (U)Ord ered By: Mary Beth Sloan on 06-16-2022 Nitrite Ql (U) Negative Negative [facility] Protein Auto test strip (U) [Mass/Vol]Ordered By: Mary Beth Sloan on 06-16-2022 Protein (U) [Mass/Vol] Negative Negative [facility] Specific gravity Auto test s trip [...] Auto Ql (U) None seen None Seen [facility] Urine clarity by refractomet ry automatedOrdered By: Mary Beth Slona on 06-16-2022 Clarity Refractometry automated (U) Turbid [...] aPTT Coag (PPP) [Time] 32.5 s 25.1-36.5 [facility] Albumin [Mass/volume] in Ser um or PlasmaOrdered By: José Miguel Mcnamara on 03-19-2022 Albumin [Mass/Vol] 3.6 g/dL 3.2-5.5 [facility] Basophils Auto (Bld) [#/Vol] Ordered By: José Miguel Mcnamara on 03-19-2022 Basophils (Bld) [#/Vol] 0.0 10*3/uL 0.0-0.2 [facility] Basophils/100 WBC Auto (Bld) Ordered By: José Miguel Mcnamara on 03-19-2022 Basophils/100 WBC (Bld) 0.1 % . [facility] COVID CepheidOrdered By: Anel Mcnamara on 03-19-2022 SARS-CoV-2 (COVID-19) Ab IA Ql Negative Negative [facility] Comment on above: This is a duplicate [employer] Xpert Xpress CoV-2/Flu/RSV Plus RNA by RT-PCR result to be used for statistical tracking purpose only. SARS-CoV-2 (COVID-19) RNA LINDSEY+probe Ql (Unsp spec) [facility] SARS-CoV-2 (COVID-19) RNA LINDSEY+probe Ql (Unsp spec) [facility] Creatinine and Glomerular fi ltration rate.predicted panel (S/P/Bld)Ordered By: José Miguel Mcnamara on 03-19-2022 Creatinine [Mass/Vol] 0.79 mg/dL 0.44-1.03 [facility] Direct bilirubin measurement Ordered By: José Miguel [...] PT Coag (PPP) [Time] 12.4 s 9.0-12.9 [facility] Leukocytes [#/volume] correc lisa for [...] 03-19-2022 MCHC (RBC) [Mass/Vol] 33.8 g/dL 32.0-35.0 [facility] MCV Auto (RBC) [Entitic vol] Ordered By: [...] on 03-19-2022 Protein [Mass/Vol] 6.9 g/dL 6.1-7.9 [facility] RBC Auto (Bld) [#/Vol]Ordere d By: José Miguel Mcnamara on 03-19-2022 RBC (Bld) [#/Vol] 4.28 10*6/uL 3.60-5.[address] [facility] Serum or plasma alanine cardoso otransferase [...] 03-19-2022 Anion gap [Moles/Vol] 9.9 mmol/L 6.0-15.0 [facility] Serum or plasma aspartate am inotransferase measurement (enzymatic activity/volume)Ordered By: José iMguel Mcnamara on 03-19-2022 AST [Catalytic activity/Vol] 74 U/L 10-42 [facility] Serum or plasma calcium skyla urement (mass/volume)Ordered By: José Miguel Mcnamara on 03-19-2022 Calcium [Mass/Vol] 8.3 mg/dL 8.2-10.2 [facility] Serum or plasma chloride florin surement (moles/volume)Ordered By: José Miguel Mcnamara on 03-19-2022 Chloride [Moles/Vol] 108 mmol/L 95-114 [facility] Serum or plasma glucose skyla urement (mass/volume)Ordered By: José Miguel Mcnamara on 03-19-2022 Glucose [Mass/Vol] 100 mg/dL 70-100 [facility] Comment on above: ADA recommended refe rence [...] on 03-19-2022 Potassium [Moles/Vol] 3.2 mmol/L 3.5-5.1 [facility] Serum or plasma sodium measu rement (moles/volume)Ordered By: José Miguel Mcnamara on 03-19-2022 Sodium [Moles/Vol] 136 mmol/L 136-146 [facility] Serum or plasma total biliru bin measurement (mass/volume)Ordered By: José Miguel Mcnamara on 03-19-2022 Bilirubin [Mass/Vol] 0.5 mg/dL 0.3-1.2 [facility] Serum or plasma total carbon dioxide measurement (moles/volume)Ordered By: José Miguel Mcnamara on 03-19-2022 CO2 [Moles/Vol] 21.3 mmol/L 22.0-30.[address] [facility] Serum or plasma urea nitroge n measurement (mass/volume)Ordered By: José Miguel Mcnamara on 03-19-2022 Urea nitrogen [Mass/Vol] 5 mg/dL 9-23 [facility] WBC Auto (Bld) [#/Vol]Ordere d By: José Miguel Mcnamara on 03-19-2022 WBC (Bld) [#/Vol] 3.2 10*3/uL 3.8-11.6 [facility] Basophils Auto (Bld) [#/Vol] Ordered By: Berto [...] on 03-17-2022 Creatinine [Mass/Vol] 0.80 mg/dL 0.44-1.03 [facility] Direct bilirubin measurement Ordered By: Berto Villasenor [...] 03-17-2022 MCHC (RBC) [Mass/Vol] 33.7 g/dL 32.0-35.0 [facility] MCV Auto (RBC) [Entitic vol] Ordered By: [...] on 03-17-2022 Protein [Mass/Vol] 6.8 g/dL 6.1-7.9 [facility] RBC Auto (Bld) [#/Vol]Ordere d By: Berto Villasenor on 03-17-2022 RBC (Bld) [#/Vol] 4.33 10*6/uL 3.60-5.[address] [facility] Serum or plasma alanine cardoso otransferase [...] 03-17-2022 Anion gap [Moles/Vol] 12.6 mmol/L 6.0-15.0 [facility] Serum or plasma aspartate am inotransferase measurement (enzymatic activity/volume)Ordered By: Berto Villasenor on 03-17-2022 AST [Catalytic activity/Vol] 71 U/L 10-42 [facility] Serum or plasma calcium skyla urement (mass/volume)Ordered By: Berto Villasenor on 03-17-2022 Calcium [Mass/Vol] 8.5 mg/dL 8.2-10.2 [facility] Serum or plasma chloride florin surement (moles/volume)Ordered By: Berto Villasenor on 03-17-2022 Chloride [Moles/Vol] 110 mmol/L 95-114 [facility] Serum or plasma glucose skyla urement (mass/volume)Ordered By: Berto Villasenor on 03-17-2022 Glucose [Mass/Vol] 98 mg/dL 70-100 [facility] Comment on above: ADA recommended refe rence [...] on 03-17-2022 Potassium [Moles/Vol] 4.1 mmol/L 3.5-5.1 [facility] Serum or plasma sodium measu rement (moles/volume)Ordered By: Berto Villasenor on 03-17-2022 Sodium [Moles/Vol] 138 mmol/L 136-146 [facility] Serum or plasma total biliru bin measurement (mass/volume)Ordered By: Berto Villasenor on 03-17-2022 Bilirubin [Mass/Vol] 0.6 mg/dL 0.3-1.2 [facility] Serum or plasma total carbon dioxide measurement (moles/volume)Ordered By: Berto Villasenor on 03-17-2022 CO2 [Moles/Vol] 19.5 mmol/L 22.0-30.[address] [facility] Serum or plasma urea nitroge n measurement (mass/volume)Ordered By: Berto Villasenor on 03-17-2022 Urea nitrogen [Mass/Vol] 9 mg/dL 9- [facility] WBC Auto (Bld) [#/Vol]Ordere d By: Berto Villasenor on 03-17-2022 WBC (Bld) [#/Vol] 5.2 10*3/uL 3.8-11.6 [facility] Activated partial thrombopla stin time (aPTT) in platelet poor plasma by coagulation aOrdered By: Cameron Rene on 03-14-2022 aPTT Coag (PPP) [Time] 22.4 s 25.1-36.5 [facility] Albumin [Mass/volume] in Ser um or PlasmaOrdered By: Cameron Rene on 03-14-2022 Albumin [Mass/Vol] 3.7 g/dL 3.2-5.5 [facility] Automated erythrocytes count in [...] on 03-14-2022 Bilirubin Ql (U) Negative Negative [facility] Color Auto (U)Ordered By: Bo Rene on 03-14-2022 Color (U) Dark yellow Yellow [facility] Creatinine and Glomerular fi ltration rate.predicted panel (S/P/Bld)Ordered By: Cameron Rene on 03-14-2022 Creatinine [Mass/Vol] 0.86 mg/dL 0.44-1.03 [facility] Eosinophils Auto (Bld) [#/Vo l]Ordered By: Cameron [...] 03-14-2022 Ketones (U) [Mass/Vol] Trace Negative [facility] - CoagulationOrde red By: Cameron Rene on 03-14-2022 PT Coag (PPP) [Time] 12.4 s 9.0-12.9 [facility] - UrinalysisOrder ed By: Cameron [...] 03-14-2022 Lymphocytes/100 WBC (Bld) 32.9 % . [facility] MCH Auto (RBC) [Entitic mass ]Ordered By: Cameron Rene on 03-14-2022 MCH (RBC) [Entitic mass] 31.2 pg 24.7-34.3 [facility] MCHC Auto (RBC) [Mass/Vol]Or dered By: Cameron Rene on 03-14-2022 MCHC (RBC) [Mass/Vol] 33.3 g/dL 32.0-35.0 [facility] MCV Auto (RBC) [Entitic vol] Ordered By: [...] Protein (U) [Mass/Vol] Trace mg/dL Negative F [facility] Protein [Mass/volume] in Ser um or PlasmaOrdered By: Cameron Rene on 03-14-2022 Protein [Mass/Vol] 7.5 g/dL 6.1-7.9 [facility] RBC Auto (Bld) [#/Vol]Ordere d By: Cameron Rene on 03-14-2022 RBC (Bld) [#/Vol] 4.66 10*6/uL 3.60-5.[address] [facility] Serum or plasma alanine cardoso otransferase [...] 03-14-2022 Anion gap [Moles/Vol] 11.6 mmol/L 6.0-15.0 [facility] Serum or plasma aspartate am inotransferase measurement (enzymatic activity/volume)Ordered By: Cameron Rene on 03-14-2022 AST [Catalytic activity/Vol] 70 U/L 10-42 [facility] Serum or plasma calcium skyla urement (mass/volume)Ordered By: Cameron Rene on 03-14-2022 Calcium [Mass/Vol] 8.3 mg/dL 8.2-10.2 [facility] Serum or plasma chloride florin surement (moles/volume)Ordered By: Cameron Rene on 03-14-2022 Chloride [Moles/Vol] 108 mmol/L 95-114 [facility] Serum or plasma glucose skyla urement (mass/volume)Ordered By: Cameron Rene on 03-14-2022 Glucose [Mass/Vol] 105 mg/dL 70-100 [facility] Comment on above: ADA recommended refe rence rangeRandom Glucose Reference Range is dependent on time and content of last meal. Glucose of more than 200 mg/dL in a nonstressed, ambulatory subject supports the diagnosis of Diabetes Mellitus. Serum or plasma potassium me asurement (moles/volume)Ordered By: Cameron Rene on 03-14-2022 Potassium [Moles/Vol] 3.9 mmol/L 3.5-5.1 [facility] Serum or plasma sodium measu rement (moles/volume)Ordered By: Cameron Rene on 03-14-2022 Sodium [Moles/Vol] 135 mmol/L 136-146 [facility] Serum or plasma total biliru bin measurement (mass/volume)Ordered By: Cameron Rene on 03-14-2022 Bilirubin [Mass/Vol] 0.7 mg/dL 0.3-1.2 [facility] Serum or plasma total carbon dioxide measurement (moles/volume)Ordered By: Cameron Rene on 03-14-2022 CO2 [Moles/Vol] 19.3 mmol/L 22.0-30.[address] [facility] Serum or plasma urea nitroge n measurement (mass/volume)Ordered By: Cameron Rene on 03-14-2022 Urea nitrogen [Mass/Vol] 11 mg/dL 12-15 [facility] Specific gravity Auto test [...] Auto Ql (U) None seen None Seen [facility] Urine clarity by refractomet ry automatedOrdered [...] 03-14-2022 WBC (Bld) [#/Vol] 6.8 10*3/uL 3.8-11.6 [facility] pH Auto test strip [...] on 02-03-2022 Bilirubin Ql (U) Negative Negative [facility] Body fluid albumin measureme nt (mass/volume)Ordered By: Dalton Ceja on 02-03-2022 Albumin (Body fld) [Mass/Vol] 3.7 g/dL 3.2-5.5 [facility] Casts typing in urine sedime nt by light microscopyOrdered By: Dalton Ceja on 02-03-2022 Casts LM Nom (Urine sed) None seen [LPF] None Seen [facility] Color Auto (U)Ordered By: Susan Ceja on 02-03-2022 Color (U) Yellow Yellow [facility] Creatinine and Glomerular fi ltration rate.predicted panel (S/P/Bld)Ordered By: Dalton Ceja on 02-03-2022 Creatinine [Mass/Vol] 0.78 mg/dL 0.44-1.03 [facility] Direct bilirubin measurement Ordered By: Dalton [...] on 02-03-2022 Ketones (U) [Mass/Vol] Negative Negative [facility] - Chemistry and C hemistry - challengeOrdered By: Dalton Ceja on 02-03-2022 Lipase [Catalytic activity/Vol] 30.0 U/L 22-51 [facility] - CoagulationOrde red By: Dalton Ceja on 02-03-2022 PT Coag (PPP) [Time] 11.9 s 9.0-12.9 [facility] - Hematology and Cell countsOrdered By: Dalton Ceja on 02-03-2022 Nucleated RBC/100 WBC (Bld) [Ratio] 0.1 % 0-0.5 [facility] Leukocytes [#/volume] in Blo od by Automated countOrdered By: Dalton Ceja on 02-03-2022 WBC (Bld) [#/Vol] 8.6 10*3/uL 4.5-11.0 [facility] Lymphocytes Auto (Bld) [#/Vo l]Ordered By: Dalton [...] 02-03-2022 MCHC (RBC) [Mass/Vol] 33.1 g/dL 32.0-35.0 [facility] MCV Auto (RBC) [Entitic vol] Ordered By: [...] Protein (U) [Mass/Vol] 100 mg/dL Negative Fi [facility] Protein [Mass/volume] in Ser um or PlasmaOrdered By: Dalton Ceja on 02-03-2022 Protein [Mass/Vol] 7.1 g/dL 6.1-7.9 [facility] RBC Auto (Bld) [#/Vol]Ordere d By: Dalton Ceja on 02-03-2022 RBC (Bld) [#/Vol] 4.62 10*6/uL 3.60-5.[address] [facility] Serum or plasma alanine cardoso otransferase [...] 02-03-2022 Anion gap [Moles/Vol] 14.0 mmol/L 6.0-15.0 [facility] Serum or plasma aspartate am inotransferase measurement (enzymatic activity/volume)Ordered By: Dalton Ceja on 02-03-2022 AST [Catalytic activity/Vol] 54 U/L 10- [facility] Serum or plasma calcium skyla urement (mass/volume)Ordered By: Dalton Ceja on 02-03-2022 Calcium [Mass/Vol] 8.9 mg/dL 8.2-10.2 [facility] Serum or plasma chloride florin surement (moles/volume)Ordered By: Dalton Ceja on 02-03-2022 Chloride [Moles/Vol] 109 mmol/L 95-114 [facility] Serum or plasma glucose skyla urement (mass/volume)Ordered By: Dalton Ceja on 02-03-2022 Glucose [Mass/Vol] 107 mg/dL 70-100 [facility] Comment on above: ADA recommended refe rence [...] on 02-03-2022 Potassium [Moles/Vol] 3.6 mmol/L 3.5-5.1 [facility] Serum or plasma sodium measu rement (moles/volume)Ordered By: Dalton Ceja on 02-03-2022 Sodium [Moles/Vol] 137 mmol/L 136-146 [facility] Serum or plasma total biliru bin measurement (mass/volume)Ordered By: Dalton Ceja on 02-03-2022 Bilirubin [Mass/Vol] 0.4 mg/dL 0.3-1.2 [facility] Serum or plasma total carbon dioxide measurement (moles/volume)Ordered By: Dalton Ceja on 02-03-2022 CO2 [Moles/Vol] 17.6 mmol/L 22.0-30.[address] [facility] Serum or plasma urea nitroge n measurement (mass/volume)Ordered By: Dalton Ceja on 02-03-2022 Urea nitrogen [Mass/Vol] 15 mg/dL 12-15 [facility] Specific gravity Auto test [...] Bacteria Auto Ql (U) 4+ None Seen [facility] Urine clarity by refractomet ry automatedOrdered [...] aPTT Coag (PPP) [Time] 31.1 s 25.1-36.5 [facility] Albumin [Mass/volume] in Ser um or PlasmaOrdered By: Berto Villasenor on 11-13-2021 Albumin [Mass/Vol] 3.5 g/dL 3.2-5.5 [facility] Basophils Auto (Bld) [#/Vol] Ordered By: Berto [...] 11-13-2021 WBC (Bld) [#/Vol] 7.8 10*3/uL 4.5-11.0 [facility] Creatinine and Glomerular fi ltration rate.predicted panel (S/P/Bld)Ordered By: Berto Villasenor on 11-13-2021 Creatinine [Mass/Vol] 0.92 mg/dL 0.44-1.03 [facility] Direct bilirubin measurement Ordered By: Berto Villasenor [...] 11-13-2021 Lipase [Catalytic activity/Vol] 33.0 U/L 51 [facility] - CoagulationOrde red By: Berto Villasenor on 11-13-2021 PT Coag (PPP) [Time] 11.7 s 9.0-12.9 [facility] - Hematology and Cell [...] 11-13-2021 MCHC (RBC) [Mass/Vol] 32.8 g/dL 32.0-35.0 [facility] MCV Auto (RBC) [Entitic vol] Ordered By: [...] on 11-13-2021 Protein [Mass/Vol] 7.1 g/dL 6.1-7.9 [facility] RBC Auto (Bld) [#/Vol]Ordere d By: Berto Villasenor on 11-13-2021 RBC (Bld) [#/Vol] 4.79 10*6/uL 3.60-5.[address] [facility] Serum or plasma alanine cardoso otransferase [...] on 11-13-2021 Calcium [Mass/Vol] 9.0 mg/dL 8.2-10.2 [facility] Serum or plasma chloride florin surement (moles/volume)Ordered By: Berto Villasenor on 11-13-2021 Chloride [Moles/Vol] 101 mmol/L 95-114 [facility] Serum or plasma glucose skyla urement (mass/volume)Ordered By: Berto Villasenor on 11-13-2021 Glucose [Mass/Vol] 96 mg/dL 70-100 [facility] Comment on above: ADA recommended refe rence [...] on 11-13-2021 Potassium [Moles/Vol] 4.0 mmol/L 3.5-5.1 [facility] Serum or plasma sodium measu rement (moles/volume)Ordered By: Berto Villasenor on 11-13-2021 Sodium [Moles/Vol] 135 mmol/L 136-146 [facility] Serum or plasma total biliru bin measurement (mass/volume)Ordered By: Berto Villasenor on 11-13-2021 Bilirubin [Mass/Vol] 0.4 mg/dL 0.3-1.2 [facility] Serum or plasma total carbon dioxide measurement (moles/volume)Ordered By: Berto Villasenor on 11-13-2021 CO2 [Moles/Vol] 24.3 mmol/L 22.0-30.[address] [facility] Serum or plasma urea nitroge n measurement (mass/volume)Ordered By: Berto Villasenor on 11-13-2021 Urea nitrogen [Mass/Vol] 14 mg/dL 12-15 [facility] Basophils Auto (Bld) [#/Vol] Ordered By: Felice Veliz on 10-30-2021 Basophils (Bld) [#/Vol] 0.1 10*3/uL 0.0-0.2 [facility] Basophils/100 WBC Auto (Bld) Ordered By: Felice Veliz on 10-30-2021 Basophils/100 WBC (Bld) 0.8 % . [facility] Blood hemoglobin measurement (mass/volume)Ordered By: Felice Veliz on 10-30-2021 Hemoglobin (Bld) [Mass/Vol] 14.9 g/dL 11.8-15.4 [facility] Blood leukocytes automated c ount (number/volume)Ordered By: Felice Veliz on 10-30-2021 WBC (Bld) [#/Vol] 8.2 10*3/uL 4.5-11.0 [facility] Body fluid albumin measureme nt (mass/volume)Ordered By: Felice Veliz on 10-30-2021 Albumin (Body fld) [Mass/Vol] 3.5 g/dL 3.2-5.5 [facility] Creatinine and Glomerular fi ltration rate.predicted panel (S/P/Bld)Ordered By: Felice Veliz on 10-30-2021 Creatinine [Mass/Vol] 0.74 mg/dL 0.44-1.03 [facility] Diagnostic impression [Inter pretation] in Specimen NarrativeOrdered By: Felice Veliz on 10-30-2021 Diagnostic impression [employer] (Unsp spec) [Interp] See comment . [facility] Comment on above: Positive HCV antibod y screen with the presence of HCV RNA is consistent with active infection. Performed at: - [address] [id number] Filling Machine Tender: Gavin Mott PhD, Phone: [phone] Performed at: [facility] [address] [id number] Filling Machine Tender: Brianda Durant MD, Phone: [phone] Positive HCV antibod y screen with the presence of HCV RNAis consistent with active infection.Performed at: [address] [id number] Director: Gavin Mott PhD, Phone: [phone] at: [facility] [address] [id number] Director: Brianda Durant MD, Phone: [phone] Eosinophils Auto (Bld) [#/Vo l]Ordered By: Felice Veliz on 10-30-2021 Eosinophils (Bld) [#/Vol] 0.1 10*3/uL 0.0-0.45 [facility] Eosinophils/100 WBC Auto (Bl d)Ordered By: Felice [...] Company Globulin Calc (S) [Mass/Vol] Ordered By: Felice Veliz on 10-30-2021 Globulin (S) [Mass/Vol] 3.5 g/dL [facility] Hematocrit Auto (Bld) [Volum e fraction]Ordered By: Felice Veliz on 10-30-2021 Hematocrit (Bld) [Volume fraction] 45.0 % 34.0-46.4 [facility] Hepatitis B virus surface Ag [Presence] in Serum or Plasma by ImmunoassayOrdered By: Felice Veliz on 10-30-2021 HBV surface Ag IA Ql Negative Negative [facility] Hepatitis C virus RNA [Units /volume] (viral load) in Serum or Plasma by LINDSEY with probOrdered By: Felice Veliz on 10-30-2021 HCV RNA LINDSEY+probe Qn [id number] [IU]/mL . [facility] Hepatitis C [...] Company Lymphocytes Auto (Bld) [#/Vo l]Ordered By: Felice Veliz on 10-30-2021 Lymphocytes (Bld) [#/Vol] 1.9 10*3/uL 1.00-4.8 [facility] Lymphocytes/100 WBC Auto (Bl d)Ordered By: Felice Veliz on 10-30-2021 Lymphocytes/100 WBC (Bld) 23.9 % . [facility] MCH Auto (RBC) [Entitic mass ]Ordered By: Felice Veliz on 10-30-2021 MCH (RBC) [Entitic mass] 31.0 pg 24.7-34.3 [facility] MCHC Auto (RBC) [Mass/Vol]Or dered By: Felice Veliz on 10-30-2021 MCHC (RBC) [Mass/Vol] 33.1 g/dL 32.0-35.0 [facility] MCV Auto (RBC) [Entitic vol] Ordered By: Felice Veliz on 10-30-2021 MCV (RBC) [Entitic vol] 93.5 fL 80-100 [facility] Monocytes Auto (Bld) [#/Vol] Ordered By: Felice Veliz on 10-30-2021 Monocytes (Bld) [#/Vol] 0.7 10*3/uL 0.0-0.8 [facility] Monocytes/100 WBC Auto (Bld) Ordered By: Felice Veliz on 10-30-2021 Monocytes/100 WBC (Bld) 8.5 % . [facility] Neutrophils Auto (Bld) [#/Vo l]Ordered By: Felice Veliz on 10-30-2021 Neutrophils (Bld) [#/Vol] 5.3 10*3/uL 1.8-7.7 [facility] Neutrophils/100 WBC Auto (Bl d)Ordered By: Felice Veliz on 10-30-2021 Neutrophils/100 WBC (Bld) 65.4 % . [facility] No Panel InformationOrdered By: Felice Veliz on [...] Company Platelets Auto (Bld) [#/Vol] Ordered By: Felice Veliz on 10-30-2021 Platelets (Bld) [#/Vol] 251 10*3/uL 150-450 [facility] Protein [Mass/volume] in Ser um or PlasmaOrdered By: Felice Veliz on 10-30-2021 Protein [Mass/Vol] 7.0 g/dL 6.1-7.9 [facility] RBC Auto (Bld) [#/Vol]Ordere d By: Felice Veliz on 10-30-2021 RBC (Bld) [#/Vol] 4.81 10*6/uL 3.60-5.[address] [facility] Serum nuclear antibody titer Ordered By: Felice Veliz on 10-30-2021 Nuclear Ab (S) [Titer] Negative . [facility] Comment on above: Negative <1:80 Borderline 1:80 Positive >1:80 ICAP nomenclature: [id number] For more information about Hep-2 cell patterns use [employer], the official website for the International Consensus on Antinuclear Antibody (BEATRIZ) Patterns (ICAP). Speckled cytoplasmic fluorescence is present. The antibodies noted in this pattern may be associated with, but not restricted to, primary biliary cirrhosis (PBC), polymyositis and dermatomyositis (PM/DM), and/or systemic lupus erythematosus (SLE). Performed at: [address] [id number] Filling Machine Tender: Gavin Mott PhD, Phone: [phone] Negative <1:80 Borde rline 1:80 Positive >1:80ICAP nomenclature: [id number] more information about Hep-2 cell patterns useDIGNITY HEALTH ST. JOSEPH'S WESTGATE MEDICAL CENTERAzzure [employer].org, the official website for theInternational Consensus on Antinuclear Antibody (BEATRIZ)Patterns (ICAP).Speckled cytoplasmic fluorescence is present. Theantibodies noted in this pattern may be associated with,but not restricted to, primary biliary cirrhosis (PBC),polymyositis and dermatomyositis (PM/DM), and/or systemiclupus erythematosus (SLE).Performed at: [employer] [id number] Director: Gavin Mott PhD, Phone: [phone] Serum or plasma alanine cardoso otransferase measurement [...] on 10-30-2021 Calcium [Mass/Vol] 8.8 mg/dL 8.2-10.2 [facility] Serum or plasma chloride florin surement (moles/volume)Ordered By: Felice Veliz on 10-30-2021 Chloride [Moles/Vol] 101 mmol/L 95-114 [facility] Serum or plasma glucose skyla urement (mass/volume)Ordered By: Felice Veliz on 10-30-2021 Glucose [Mass/Vol] 100 mg/dL 70-100 [facility] Comment on above: ADA recommended refe rence [...] on 10-30-2021 Potassium [Moles/Vol] 4.2 mmol/L 3.5-5.1 [facility] Serum or plasma sodium measu rement (moles/volume)Ordered By: Felice Veliz on 10-30-2021 Sodium [Moles/Vol] 136 mmol/L 136-146 [facility] Serum or plasma total biliru bin measurement (mass/volume)Ordered By: Felice Veliz on 10-30-2021 Bilirubin [Mass/Vol] 0.3 mg/dL 0.3-1.2 [facility] Serum or plasma total carbon dioxide measurement (moles/volume)Ordered By: Felice Veliz on 10-30-2021 CO2 [Moles/Vol] 22.6 mmol/L 22.0-30.[address] [facility] Serum or plasma urea nitroge n measurement (mass/volume)Ordered By: Felice Veliz on 10-30-2021 Urea nitrogen [Mass/Vol] 11 mg/dL 12-15 [facility] CBC AUTO DIFFon 10-15-2021 BASO # 0.0 103/ul Normal 0.0-0.1 [facility] Comment on above: Performed By: #### C BC #### [facility] [address] [place] [address] Dr. Nolan Biggs Basophils/100 WBC (Bld) 0.2 % Normal 0.2-2.0 [facility] Comment on above: Performed By: #### C BC #### [facility] [address] [place] [address] Dr. Nolan Biggs EO # 0.1 103/ul Normal 0.0-0.7 [facility] Comment on above: Performed By: #### C BC #### [facility] [address] [place] [address] Dr. Nolan Biggs Eosinophils/100 WBC (Bld) 2.0 % Normal 0.9-7.0 [facility] Comment on above: Performed By: #### C BC #### [facility] [address] [place] [address] Dr. Nolan Biggs Erythrocyte distribution width (RBC) [Ratio] 12.7 % Normal 11.0-15.0 [facility] Comment on above: Performed By: #### C BC #### [facility] [address] [place] [address] Dr. Nolan Biggs Hematocrit (Bld) [Volume fraction] 43.7 % Normal 36.0-48.0 [facility] Comment on above: Performed By: #### C BC #### [facility] [address] [place] [address] Dr. Nolan Biggs Hemoglobin (Bld) [Mass/Vol] 14.8 g/dL Normal 12.0-16.0 [facility] Comment on above: Performed By: #### C BC #### [facility] [address] [place] [address] Dr. Nolan Biggs IG # 0.02 10e3/ul Normal 0.00-0.03 [facility] Comment on above: Performed By: #### C BC #### [facility] [address] [place] [address] Dr. Nolan Biggs IG % 0.3 % Normal 0.0-0.5 [facility] Comment on above: Performed By: #### C BC #### [facility] [address] [place] [address] Dr. Nolan Biggs LYMPH # 0.4 103/ul Critically low 1.2-3.8 [facility] Comment on above: Performed By: #### C BC #### [facility] [address] [place] [address] Dr. Nolan Biggs Lymphocytes/100 WBC (Bld) 7.0 % Critically low 20.5-60.0 [facility] Comment on above: Performed By: #### C BC #### [facility] [address] [place] [address] Dr. Nolan Biggs MANUAL DIFF REQ NO Normal [facility] Comment on above: Performed By: #### C BC #### [facility] [address] [place] [address] Dr. Nolan Biggs MCH (RBC) [Entitic mass] 31.3 pg Normal 26.7-34.0 [facility] Comment on above: Performed By: #### C BC #### [facility] [address] [place] [address] Dr. Nolan Biggs MCHC (RBC) [Mass/Vol] 33.9 g/dL Normal 29.9-35.2 [facility] Comment on above: Performed By: #### C BC #### [facility] [address] [place] [address] Dr. Nolan Biggs MCV (RBC) [Entitic vol] 92.4 fL Normal 81.0-99.0 [facility] Comment on above: Performed By: #### C BC #### [facility] [address] [place] [address] Dr. Nolan Biggs MONO # 0.3 103/ul Normal 0.3-0.8 [facility] Comment on above: Performed By: #### C BC #### [facility] [address] [place] [address] Dr. Nolan Biggs Monocytes/100 WBC (Bld) 5.7 % Normal 1.7-12.0 [facility] Comment on above: Performed By: #### C BC #### [facility] [address] [place] [address] Dr. Nolan Biggs NEUT # 5.1 103/ul Normal 1.4-6.5 [facility] Comment on above: Performed By: #### C BC #### [facility] [address] [place] [address] Dr. Nolan Biggs Neutrophils/100 WBC (Bld) 84.8 % Critically high 43.0-75.0 [facility] Comment on above: Performed By: #### C BC #### [facility] [address] [place] [address] Dr. Nolan Biggs Platelet mean volume (Bld) [Entitic vol] 10.5 fL Normal 9.5-13.5 [facility] Comment on above: Performed By: #### C BC #### [facility] [address] [place] [address] Dr. Nolan Biggs PLT 218 103/ul Normal 150-450 [facility] Comment on above: Performed By: #### C BC #### [facility] [address] [place] [address] Dr. Nolan Biggs RBC 4.73 106/ul Normal 4.20-5.40 [facility] Comment on above: Performed By: #### C BC #### [facility] [address] [place] [address] Dr. Nolan Biggs WBC 6.0 103/ul Normal 4.0-11.0 [facility] Comment on above: Performed By: #### C BC #### [facility] [address] [place] [address] Dr. Nolan Biggs ER URINE PROFILEon 2 Bilirubin Ql (U) Negative Normal NEGATIVE [facility] Comment on above: Performed By: #### E RUR, PREGU #### [facility] [address] [place] [address] Dr. Nolan Biggs Clarity (U) CLEAR Normal CLEAR [facility] Comment on above: Performed By: #### E RUR, PREGU #### [facility] [address] [place] [address] Dr. Nolan Biggs Color (U) YELLOW Normal YELLOW [facility] Comment on above: Performed By: #### E RUR, PREGU #### [facility] [address] [place] [address] Dr. Nolan URBINA A micrscopic examination will be performed if indicated. Normal [facility] Comment on above: Performed By: #### E RUR, PREGU #### [facility] [address] [place] [address] Dr. Nolan Biggs Glucose Ql (U) Negative Normal NEGATIVE [facility] Comment on above: Performed By: #### E RUR, PREGU #### [facility] [address] [place] [address] Dr. Nolan Biggs Hemoglobin Ql (U) Negative Normal NEGATIVE [facility] Comment on above: Performed By: #### E RUR, PREGU #### [facility] [address] [place] [address] Dr. Nolan Biggs Ketones Ql (U) Negative Normal NEGATIVE [facility] Comment on above: Performed By: #### E RUR, PREGU #### [facility] [address] [place] [address] Dr. Nolan Biggs LEUKOCYTES Negative Normal NEGATIVE [facility] Comment on above: Performed By: #### E RUR, PREGU #### [facility] [address] [place] [address] Dr. Nolan Biggs Nitrite Ql (U) Negative Normal NEGATIVE [facility] Comment on above: Performed By: #### E RUR, PREGU #### [facility] [address] [place] [address] Dr. Nolan Biggs pH (U) 7.0 [pH] Normal 5-9 [facility] Comment on above: Performed By: #### E RUR, PREGU #### [facility] [address] [place] [address] Dr. Nolan Biggs SPEC GRAVITY 1.020 Normal 1.005-<=1.02 5 [facility] Comment on above: Performed By: #### E RUR, PREGU #### [facility] [address] [place] [address] Dr. Nolan Biggs UA PROTEIN TRACE Normal NEGATIVE/ TRACE [facility] Comment on above: Performed By: #### E RUR, PREGU #### [facility] [address] [place] [address] Dr. Nolan Biggs UR MICRO IND NOT INDICATED Normal [facility] Comment on above: Performed By: #### E RUR, PREGU #### [facility] [address] [place] [address] Dr. Noaln Biggs Urobilinogen Qn (U) 1.0 {Jan'U}/dL Normal 0.2 - 1. 0 [facility] Comment on above: Performed By: #### E RUR, PREGU #### [facility] [address] [place] [address] Dr. Nolan Biggs LIPASEon 10-15-2021 Lipase [Catalytic activity/Vol] 56.0 U/L Critically low 73.0-393.0 [facility] Comment on above: Performed By: #### L IPA, CMP #### [facility] [address] [place] [address] Dr. Nolan Biggs URon 10-15-2021 , QUAL Negative Normal NEGATIVE [facility] Comment on above: Performed By: #### E RUR, PREGU #### [facility] [address] [place] [address] Dr. Nolan Biggs PROF 14(COMP METB)on 022 Albumin [Mass/Vol] 3.5 g/dL Normal 3.4-5.0 [facility] Comment on above: Performed By: #### L IPA, CMP #### [facility] [address] [place] [address] Dr. Nolan Biggs Albumin/Globulin [Mass ratio] 0.9 {ratio} Normal [facility] Comment on above: Performed By: #### L IPA, CMP #### [facility] [address] [place] [address] Dr. Nolan Biggs ALP [Catalytic activity/Vol] 78 U/L Normal 46-116 [facility] Comment on above: Performed By: #### L IPA, CMP #### [facility] [address] [address] [address] Nolan Biggs ALT [Catalytic activity/Vol] 157 U/L Critically high 14-59 [facility] Comment on above: Performed By: #### L IPA, CMP #### [facility] [address] [place] [address] Dr. Nolan Biggs Anion gap [Moles/Vol] 11.3 mmol/L Normal [facility] Comment on above: Performed By: #### L IPA, CMP #### [facility] [address] [place] [address] Dr. Nolan Biggs AST [Catalytic activity/Vol] 84 U/L Critically high 15-37 [facility] Comment on above: Performed By: #### L IPA, CMP #### [facility] [address] [place] [address] Dr. Nolan Biggs Bilirubin [Mass/Vol] 0.5 mg/dL Normal 0.2-1.0 [facility] Comment on above: Performed By: #### L IPA, CMP #### [facility] [address] [address] [address] Nolan Biggs Calcium [Mass/Vol] 8.2 mg/dL Critically low 8.5-10.1 [facility] Comment on above: Performed By: #### L IPA, CMP #### [facility] [address] [place] [address] Dr. Nolan Biggs Chloride [Moles/Vol] 106 mmol/L Normal 98-107 [facility] Comment on above: Performed By: #### L IPA, CMP #### [facility] [address] [place] [address] Dr. Nolan Biggs CO2 [Moles/Vol] 23.6 mmol/L Normal 21.0-32.0 [facility] Comment on above: Performed By: #### L IPA, CMP #### [facility] [address] [place] [address] Dr. Nolan Biggs Creatinine [Mass/Vol] 0.83 mg/dL Normal 0.55-1.02 [facility] Comment on above: Performed By: #### L IPA, CMP #### [facility] [address] [address] [address] Nolan Biggs EGFR-AF ZIMBABWEAN >60 Normal >=60 [facility] Comment on above: Performed By: #### L IPA, CMP #### [facility] [address] [place] [address] Dr. Nolan Biggs EGFR-NON AF ZIMBABWEAN >60 Normal >=60 [facility] Comment on above: Performed By: #### L IPA, CMP #### [facility] Laboratory [address] [place] [address] Dr. Nolan Biggs Globulin (S) [Mass/Vol] 4.0 g/dL Normal [facility] Comment on above: Performed By: #### L IPA, CMP #### [facility] [address] [place] [address] Dr. Nolan Biggs Glucose [Mass/Vol] 115 mg/dL Critically high 74-106 [facility] Comment on above: Performed By: #### L IPA, CMP #### [facility] [address] [place] [address] Dr. Nolan Biggs Potassium [Moles/Vol] 3.9 mmol/L Normal 3.5-5.1 [facility] Comment on above: Performed By: #### L IPA, CMP #### [facility] [address] [place] [address] Dr. Nolan Biggs Protein [Mass/Vol] 7.5 g/dL Normal 6.4-8.2 [facility] Comment on above: Performed By: #### L IPA, CMP #### [facility] [address] [place] [address] Dr. Nolan Biggs Sodium [Moles/Vol] 137 mmol/L Normal 136-145 [facility] Comment on above: Performed By: #### L IPA, CMP #### [facility] [address] [address] [address] Nolan Biggs Urea nitrogen [Mass/Vol] 13.0 mg/dL Normal 7.0-18.0 [facility] Comment on above: Performed By: #### L IPA, CMP #### [facility] [address], [place] [address] Dr. Nolan Biggs Urea nitrogen/Creatinine [Mass ratio] 15.7 mg/mg Normal [facility] Comment on above: Performed By: #### L IPA, CMP #### [facility] [address] [address] [address] Nolan Biggs XR ABD FLAT UP_PA [...] PROMISE MCKEON Date: 2021-10-15 12:58 Normal [facility] Serum or plasma potassium me asurement (moles/volume)Ordered By: José Miguel Mcnamara on 10-10-2021 Potassium [Moles/Vol] 3.9 mmol/L 3.5-5.1 [facility] Activated partial thrombopla stin time (aPTT) in platelet poor plasma by coagulation aOrdered By: José Miguel Mcnamara on 10-09-2021 aPTT Coag (PPP) [Time] 24.4 s 25.1-36.5 [facility] Automated erythrocytes count in urine sediment (number/area)Ordered By: MOLLY KURTZ on 07-18-2022 RBC Auto (Urine sed) [#/Area] 1-2 [HPF] [...] on 10-09-2021 Bilirubin Ql (U) Negative Negative [facility] Blood hemoglobin measurement (mass/volume)Ordered By: José Miguel Mcnamara on 10-09-2021 Hemoglobin (Bld) [Mass/Vol] 14.4 g/dL 11.8-15.4 [facility] Blood leukocytes automated c ount (number/volume)Ordered By: José Miguel Mcnamara on 10-09-2021 WBC (Bld) [#/Vol] 8.3 10*3/uL 4.5-11.0 [facility] Body fluid albumin measureme nt (mass/volume)Ordered By: José Miguel Mcnamara on 10-09-2021 Albumin (Body fld) [Mass/Vol] 3.4 g/dL 3.2-5.5 [facility] Color Auto (U)Ordered By: RICH KURTZ on 10-09-2021 Color (U) Yellow Yellow [facility] Creatinine and Glomerular fi ltration rate.predicted panel (S/P/Bld)Ordered By: José Miguel Mcnamara on 10-09-2021 Creatinine [Mass/Vol] 0.94 mg/dL 0.44-1.03 [facility] Direct bilirubin measurement Ordered By: José Miguel [...] on 10-09-2021 Ketones (U) [Mass/Vol] Trace Negative [facility] - Chemistry and C hemistry - challengeOrdered By: José Miguel Mcnamara on 10-09-2021 Lipase [Catalytic activity/Vol] 31.0 U/L 22-51 [facility] Laboratory - CoagulationOrde red By: José Miguel Mcnamara on 10-09-2021 PT Coag (PPP) [Time] 11.1 s 9.0-12.9 [facility] - Hematology and Cell countsOrdered By: José Miguel Mcnamara on 10-09-2021 Nucleated RBC/100 WBC (Bld) [Ratio] 0.1 % 0-0.5 [facility] Laboratory - UrinalysisOrder ed By: PROVIDER TEMP [...] 10-09-2021 MCHC (RBC) [Mass/Vol] 33.7 g/dL 32.0-35.0 [facility] MCV Auto (RBC) [Entitic vol] Ordered By: [...] 10-09-2021 Protein (U) [Mass/Vol] Trace mg/dL Negative [facility] Protein [Mass/volume] in Ser um or PlasmaOrdered By: José Miguel Mcnamara on 10-09-2021 Protein [Mass/Vol] 6.7 g/dL 6.1-7.9 [facility] RBC Auto (Bld) [#/Vol]Ordere d By: José Miguel Mcnamara on 10-09-2021 RBC (Bld) [#/Vol] 4.52 10*6/uL 3.60-5.[address] [facility] Serum or plasma alanine cardoso otransferase measurement without P-5'-P (enzymatic activiOrdered By: José Miguel Mcnamaar on 10-09-2021 ALT No additional P-5'-P [Catalytic [...] on 10-09-2021 Calcium [Mass/Vol] 8.8 mg/dL 8.2-10.2 [facility] Serum or plasma chloride florin surement (moles/volume)Ordered By: José Miguel Mcnamara on 10-09-2021 Chloride [Moles/Vol] 107 mmol/L 95-114 [facility] Serum or plasma glucose skyla urement (mass/volume)Ordered By: José Miguel Mcnamara on 10-09-2021 Glucose [Mass/Vol] 103 mg/dL 70-100 [facility] Comment on above: ADA recommended refe rence [...] on 10-09-2021 Sodium [Moles/Vol] 139 mmol/L 136-146 [facility] Serum or plasma total biliru bin measurement (mass/volume)Ordered By: José Miguel Mcnamara on 10-09-2021 Bilirubin [Mass/Vol] 0.7 mg/dL 0.3-1.2 [facility] Serum or plasma total carbon dioxide measurement (moles/volume)Ordered By: José Miguel Mcnamara on 10-09-2021 CO2 [Moles/Vol] 23.0 mmol/L 22.0-30.[address] [facility] Serum or plasma urea nitroge n measurement (mass/volume)Ordered By: José Miguel Mcnamara on 10-09-2021 Urea nitrogen [Mass/Vol] 16 mg/dL 9-23 [facility] Specific gravity Auto test s trip (U) [Rel density]Ordered By: PROVIDER TESSIE on 10-09-2021 Specific gravity (U) [Rel density] 1.038 1.001-1.030 [facility] Squamous epithelial cells de tection in urine sediment by light microscopyOrdered By: PROVIDER [facility] on 10-09-2021 Epithelial cells.squamous LM Ql (Urine sed) 3-4 [HPF] 0-2 [facility] Urine bacteria detection by automated methodOrdered By: PROVIDER [facility] on 10-09-2021 Bacteria Auto Ql (U) 1+ None Seen [facility] Urine clarity by refractomet ry automatedOrdered By: PROVIDER TEM on 10-09-2021 Clarity Refractometry automated (U) Turbid [...] 09-19-2021 WBC (Bld) [#/Vol] 6.9 10*3/uL 4.5-11.0 [facility] Creatinine and Glomerular fi ltration rate.predicted panel (S/P/Bld)Ordered By: Dagoberto Romero on 09-19-2021 Creatinine [Mass/Vol] 0.86 mg/dL 0.44-1.03 [facility] Eosinophils Auto (Bld) [#/Vo l]Ordered By: Dagoberto [...] 09-19-2021 MCHC (RBC) [Mass/Vol] 33.7 g/dL 32.0-35.0 [facility] MCV Auto (RBC) [Entitic vol] Ordered By: [...] 09-19-2021 RBC (Bld) [#/Vol] 4.74 10*6/uL 3.60-5.[address] [facility] Serum or plasma calcium skyla urement (mass/volume)Ordered By: Dagoberto Romero on 09-19-2021 Calcium [Mass/Vol] 8.5 mg/dL 8.2-10.2 [facility] Serum or plasma chloride florin surement (moles/volume)Ordered By: Dagoberto Romero on 09-19-2021 Chloride [Moles/Vol] 105 mmol/L 95-114 [facility] Serum or plasma glucose skyla urement (mass/volume)Ordered By: Dagoberto Romero on 09-19-2021 Glucose [Mass/Vol] 97 mg/dL 70-100 [facility] Comment on above: ADA recommended refe rence range Random Glucose Reference Range is dependent on time and content of last meal. Glucose of more than 200 mg/dL in a nonstressed, ambulatory subject supports the diagnosis of Diabetes Mellitus. Serum or plasma potassium me asurement (moles/volume)Ordered By: Dagoberto Romero on 09-19-2021 Potassium [Moles/Vol] 4.1 mmol/L 3.5-5.1 [facility] Serum or plasma sodium measu rement (moles/volume)Ordered By: Dagoberto Romero on 09-19-2021 Sodium [Moles/Vol] 137 mmol/L 136-146 [facility] Serum or plasma total carbon dioxide measurement (moles/volume)Ordered By: Dagoberto Romero on 09-19-2021 CO2 [Moles/Vol] 23.5 mmol/L 22.0-30.[address] [facility] Serum or plasma urea nitroge n measurement (mass/volume)Ordered By: Dagoberto Romero on 09-19-2021 Urea nitrogen [Mass/Vol] 12 mg/dL 9- [facility] CBC AUTO DIFFon 09-13-2021 BASO # 0.0 103/ul Normal 0.0-0.1 [facility] Comment on above: Performed By: #### C BC #### [facility] [address] [address] [address] Nolan Biggs Basophils/100 WBC (Bld) 0.2 % Normal 0.2-2.0 [facility] Comment on above: Performed By: #### C BC #### [facility] [address] [address] [address] Nolan Biggs EO # 0.2 103/ul Normal 0.0-0.7 [facility] Comment on above: Performed By: #### C BC #### [facility] [address] [address] [address] Nolan Biggs Eosinophils/100 WBC (Bld) 3.2 % Normal 0.9-7.0 [facility] Comment on above: Performed By: #### C BC #### [facility] [address] [place] [address] Dr. Nolan Biggs Erythrocyte distribution width (RBC) [Ratio] 12.3 % Normal 11.0-15.0 [facility] Comment on above: Performed By: #### C BC #### [facility] [address] [place] [address] Dr. Nolan Biggs Hematocrit (Bld) [Volume fraction] 44.6 % Normal 36.0-48.0 [facility] Comment on above: Performed By: #### C BC #### [facility] [address] [place] [address] Dr. Nolan Biggs Hemoglobin (Bld) [Mass/Vol] 14.8 g/dL Normal 12.0-16.0 [facility] Comment on above: Performed By: #### C BC #### [facility] [address] [place] [address] Dr. Nolan Biggs IG # 0.02 10e3/ul Normal 0.00-0.03 [facility] Comment on above: Performed By: #### C BC #### [facility] [address] [place] [address] Dr. Nolan Biggs IG % 0.3 % Normal 0.0-0.5 [facility] Comment on above: Performed By: #### C BC #### [facility] [address] [place] [address] Dr. Nolan Biggs LYMPH # 2.4 103/ul Normal 1.2-3.8 [facility] Comment on above: Performed By: #### C BC #### [facility] [address] [place] [address] Dr. Nolan Biggs Lymphocytes/100 WBC (Bld) 40.0 % Normal 20.5-60.0 [facility] Comment on above: Performed By: #### C BC #### [facility] [address] [place] [address] Dr. Nolan Biggs MANUAL DIFF REQ NO Normal [facility] Comment on above: Performed By: #### C BC #### [facility] [address] [place] [address] Dr. Nolan Biggs MCH (RBC) [Entitic mass] 30.9 pg Normal 26.7-34.0 [facility] Comment on above: Performed By: #### C BC #### [facility] [address] [place] [address] Dr. Nolan Biggs MCHC (RBC) [Mass/Vol] 33.2 g/dL Normal 29.9-35.2 [facility] Comment on above: Performed By: #### C BC #### [facility] [address] [place] [address] Dr. Nolan Biggs MCV (RBC) [Entitic vol] 93.1 fL Normal 81.0-99.0 [facility] Comment on above: Performed By: #### C BC #### [facility] [address] [place] [address] Dr. Nolan Biggs MONO # 0.5 103/ul Normal 0.3-0.8 [facility] Comment on above: Performed By: #### C BC #### [facility] [address] [place] [address] Dr. Nolan Biggs Monocytes/100 WBC (Bld) 8.4 % Normal 1.7-12.0 [facility] Comment on above: Performed By: #### C BC #### [facility] [address] [place] [address] Dr. Nolan Biggs NEUT # 2.9 103/ul Normal 1.4-6.5 [facility] Comment on above: Performed By: #### C BC #### [facility] [address] [place] [address] Dr. Nolan Biggs Neutrophils/100 WBC (Bld) 47.9 % Normal 43.0-75.0 [facility] Comment on above: Performed By: #### C BC #### [facility] [address] [place] [address] Dr. Nolan Biggs Platelet mean volume (Bld) [Entitic vol] 10.7 fL Normal 9.5-13.5 [facility] Comment on above: Performed By: #### C BC #### [facility] [address] [place] [address] Dr. Nolan Biggs PLT 298 103/ul Normal 150-450 [facility] Comment on above: Performed By: #### C BC #### [facility] [address] [address] [address] Nolan Biggs RBC 4.79 106/ul Normal 4.20-5.40 [facility] Comment on above: Performed By: #### C BC #### [facility] [id number] Nolan Biggs WBC 6.0 103/ul Normal 4.0-11.0 [facility] Comment on above: Performed By: #### C BC #### [facility] [id number] Nolan Biggs CT ABD/PELVIS WO CONon [...] LEILANI SOLOMON Date: 2021-09-13 21:13 Normal [facility] Covid-19 PCR (CVDTB)on 08-24 SARS-CoV-2 (COVID-19) RNA LINDSEY+probe Ql (Unsp spec) Not detected Normal NOT DETECTED [facility] Comment on above: Result Comment: When [...] for this test is supported by the Driver Manager of Health and Human Service's declaration that [...] used). Performed By: #### C BC #### [facility] [address] [place] [address] Dr. Nolan Biggs ER URINE PROFILEon 2 Bilirubin Ql (U) SMALL Abnormal NEGATIVE [facility] Comment on above: Performed By: #### E RUR #### [facility] [address] [place] [address] Dr. Nolan Biggs Clarity (U) CLEAR Normal CLEAR [facility] Comment on above: Performed By: #### E RUR #### [facility] [address] [place] [address] Dr. Nolan Biggs Color (U) DK. YELLOW Normal YELLOW [facility] Comment on above: Performed By: #### E RUR #### [facility] [address] [place] [address] Dr. Nolan Biggs ERUAHD A micrscopic examination will be performed if indicated. Normal [facility] Comment on above: Performed By: #### E RUR #### [facility] [address] [place] [address] Dr. Nolan Biggs Glucose Ql (U) Negative Normal NEGATIVE [facility] Comment on above: Performed By: #### E RUR #### [facility] [address] [place] [address] Dr. Nolan Biggs Hemoglobin Ql (U) Negative Normal NEGATIVE [facility] Comment on above: Performed By: #### E RUR #### [facility] [address] [place] [address] Dr. Nolan Biggs Ketones Ql (U) Negative Normal NEGATIVE [facility] Comment on above: Performed By: #### E RUR #### [facility] [address] [place] [address] Dr. Nolan Biggs LEUKOCYTES Negative Normal NEGATIVE [facility] Comment on above: Performed By: #### E RUR #### [facility] [address] [place] [address] Dr. Nolan Biggs Nitrite Ql (U) Negative Normal NEGATIVE [facility] Comment on above: Performed By: #### E RUR #### [facility] [address] [place] [address] Dr. Nolan Biggs pH (U) 5.5 [pH] Normal 5-9 [facility] Comment on above: Performed By: #### E RUR #### [facility] [address] [place] [address] Dr. Nolan Biggs SPEC GRAVITY >=1.030 Abnormal 1.005-<=1.02 5 [facility] Comment on above: Performed By: #### E RUR #### [facility] [address] [place] [address] Dr. Nolan Biggs UA PROTEIN Negative Normal NEGATIVE/ TRACE [facility] Comment on above: Performed By: #### E RUR #### [facility] [address] [place] [address] Dr. Nolan Biggs UR MICRO IND NOT INDICATED Normal [facility] Comment on above: Performed By: #### E RUR #### [facility] [address] [place] [address] Dr. Nolan Biggs Urobilinogen Qn (U) 1.0 {Jan'U}/dL Normal 0.2 - 1. 0 [facility] Comment on above: Performed By: #### E RUR #### [facility] [address] [place] [address] Dr. Nolan Biggs INFLUENZA A AND B AGon 09-13 INFLUENZA A AG Negative Normal NEGATIVE SEE COMMENT [facility] Comment on above: Performed By: #### C BC #### [facility] [address] [place] [address] Dr. Nolan Biggs INFLUENZA B AG Negative Normal NEGATIVE SEE COMMENT [facility] Comment on above: Performed By: #### C BC #### [facility] [address] [place] [address] Dr. Nolan Biggs INTERNAL CONTROLS Within Normal Limits Normal Wi thin Normal Limits [facility] Comment on above: Performed By: #### C BC #### [facility] [address] [place] [address] Dr. Nolan Biggs LACTATE/LACTIC ACIDon 2021 Lactate [Moles/Vol] 0.4 mmol/L Normal 0.4-1.9 [facility] Comment on above: Performed By: #### C BC #### [facility] [address] [place] [address] Dr. Nolan Biggs LIPASEon 09-13-2021 Lipase [Catalytic activity/Vol] 63.0 U/L Critically low 73.0-393.0 [facility] Comment on above: Performed By: #### C MP HSTROPN, LIPA #### [facility] [address] [place] [address] Dr. Nolan Biggs PROF 14(COMP METB)on 022 Albumin [Mass/Vol] 3.5 g/dL Normal 3.4-5.0 [facility] Comment on above: Performed By: #### C MP HSTROPN, LIPA #### [facility] [address] [place] [address] Dr. Nolan Biggs Albumin/Globulin [Mass ratio] 0.8 {ratio} Normal [facility] Comment on above: Performed By: #### C MP, HSTROPN, LIPA #### [facility] [address] [place] [address] Dr. Nolan Biggs ALP [Catalytic activity/Vol] 83 U/L Normal 46-116 [facility] Comment on above: Performed By: #### C MP, HSTROPN, LIPA #### [facility] [address] [place] [address] Dr. Nolan Biggs ALT [Catalytic activity/Vol] 143 U/L Critically high 14-59 [facility] Comment on above: Performed By: #### C MP, HSTROPN, LIPA #### [facility] [address] [place] [address] Dr. Nolan Biggs Anion gap [Moles/Vol] 10.9 mmol/L Normal [facility] Comment on above: Performed By: #### C MP, HSTROPN, LIPA #### [facility] [address] [place] [address] Dr. Nolan Biggs AST [Catalytic activity/Vol] 82 U/L Critically high 15-37 [facility] Comment on above: Performed By: #### C MP, HSTROPN, LIPA #### [facility] [address] [place] [address] Dr. Nolan Biggs Bilirubin [Mass/Vol] 0.6 mg/dL Normal 0.2-1.0 [facility] Comment on above: Performed By: #### C MP, HSTROPN, LIPA #### [facility] [address] [place] [address] Dr. Nolan Biggs Calcium [Mass/Vol] 8.4 mg/dL Critically low 8.5-10.1 [facility] Comment on above: Performed By: #### C MP, HSTROPN, LIPA #### [facility] [address] [place] [address] Dr. Nolan Biggs Chloride [Moles/Vol] 106 mmol/L Normal 98-107 [facility] Comment on above: Performed By: #### C MP, HSTROPN, LIPA #### [facility] [address] [place] [address] Dr. Nolan Biggs CO2 [Moles/Vol] 26.2 mmol/L Normal 21.0-32.0 [facility] Comment on above: Performed By: #### C MP, HSTROPN, LIPA #### [facility] [address] [address] [address] Nolan Biggs Creatinine [Mass/Vol] 0.82 mg/dL Normal 0.55-1.02 [facility] Comment on above: Performed By: #### C MP, HSTROPN, LIPA #### [facility] [address] [address] [address] Nolan Biggs EGFR-AF ZIMBABWEAN >60 Normal >=60 [facility] Comment on above: Performed By: #### C MP, HSTROPN, LIPA #### [facility] [address] [place] [address] Dr. Nolan Biggs EGFR-NON AF ZIMBABWEAN >60 Normal >=60 [facility] Comment on above: Performed By: #### C MP, HSTROPN, LIPA #### [facility] [address] [address] [address] Nolan Biggs Globulin (S) [Mass/Vol] 4.2 g/dL Normal [facility] Comment on above: Performed By: #### C MP, HSTROPN, LIPA #### [facility] [address] [place] [address] Dr. Nolan Biggs Glucose [Mass/Vol] 112 mg/dL Critically high 74-106 [facility] Comment on above: Performed By: #### C MP, HSTROPN, LIPA #### [facility] [address] [address] [address] Nolan Biggs Potassium [Moles/Vol] 4.1 mmol/L Normal 3.5-5.1 [facility] Comment on above: Performed By: #### C MP, HSTROPN, LIPA #### [facility] [address] [place] [address] Dr. Nolan Biggs Protein [Mass/Vol] 7.7 g/dL Normal 6.4-8.2 [facility] Comment on above: Performed By: #### C MP HSTROPN, LIPA #### [facility] [address] [place] [address] Dr. Nolan Biggs Sodium [Moles/Vol] 139 mmol/L Normal 136-145 [facility] Comment on above: Performed By: #### C IGGY HSTROPN, LIPA #### [facility] [address] [place] [address] Dr. Nolan Biggs Urea nitrogen [Mass/Vol] 11.0 mg/dL Normal 7.0-18.0 [facility] Comment on above: Performed By: #### C IGGY HSTROPRadha LIPA #### [facility] [address] [place] [address] Dr. Nolan Biggs Urea nitrogen/Creatinine [Mass ratio] 13.4 mg/mg Normal [facility] Comment on above: Performed By: #### C IGGY HSTRNAMITA LIPA #### [facility] [address] [place] [address] Dr. Nolan Biggs PROTIMEon 09-13-2021 INR Coag (PPP) [Relative time] 1.00 {INR} Normal [facility] Comment on above: Performed By: #### C BC #### [facility] [address] [place] [address] Dr. Nolan Biggs INR GUIDELINES SEE BELOW Normal [facility] Comment on above: Result Comment: PATRICIA RED INR: 2.0 - 3.0 CONDITIONS NOT LISTED BELOW 2.5 - 3.5 FOR PROSTHETIC HEART VALVE REPLACEMENT 2.5 - 3.5 RECURRENT THROMBOSIS Performed By: #### C BC #### [facility] [address] [place] [address] Dr. Nolan Biggs PT Coag (PPP) [Time] 10.8 s Normal 9.0-11.6 [facility] Comment on above: Performed By: #### C BC #### [facility] [address] [place] [address] Dr. Nolan Biggs PTTon 09-13-2021 aPTT Coag (Bld) [Time] 27.3 s Normal 22.3-36.2 [facility] Comment on above: Performed By: #### C BC #### [facility] [address], [place] [address] Dr. Nolan Biggs TROPONIN, HIGH SENSITIVITYon 09-13-2021 HSTROP <4.0 Normal 4.0-51.3 [facility] Comment on above: Result Comment: CUT- OFF POINTS HAVE BEEN ESTABLISHED BASED ON THE FOURTH UNIVERSAL DEFINITIONS OF MYOCARDIAL INFARCTION. THE UPPER REFERENCE LIMIT (URL) OF TROPONIN, DEFINED THE 99TH PERCENTILE OF cTnI DISTRIBUTION IN A REFERENCE POPULATION, HAS BEEN CONFIRMED THE DECISION THRESHOLD FOR CT DIAGNOSIS. Performed By: #### C BC #### [facility] [address], [place] [address] Dr. Nolan Biggs Vital Signs Date Time Vital Sign Value Performing Clinician Facility 02-20-2024 16:42-0500 Body temperature 98.06 [degF] Nikhil Tubbs [facility] 02-20-2024 16:42-0500 Diastolic blood pressure 92 mm[Hg] Nikhil Tubbs [facility] 02-20-2024 16:42-0500 Heart rate 83 /min Nikhil Tubbs [facility] 02-20-2024 16:42-0500 Respiratory rate 20 /min Nikhil Tubbs [facility] 02-20-2024 16:42-0500 SaO2% (BldA) [Mass fraction] 99 % Nikhil Tubbs [facility] 02-20-2024 16:42-0500 Systolic blood pressure 164 mm[Hg] Nikhil Tubbs [facility] 02-16-2024 11:00-0500 Diastolic blood pressure 95 mm[Hg] Nikhil Tubbs [facility] 02-16-2024 11:00-0500 Heart rate 84 /min Nikhil Tubbs [facility] 02-16-2024 11:00-0500 Mean blood pressure 112 mm[Hg] Nikhil Arley [facility] 02-16-2024 11:00-0500 SaO2% (BldA) [Mass fraction] 97 % Inkhil Arley [facility] 02-16-2024 11:00-0500 Systolic blood pressure 145 mm[Hg] Nikhil Arley [facility] 02-16-2024 10:30-0500 Diastolic blood pressure 91 mm[Hg] Nikhil Arley [facility] 02-16-2024 10:30-0500 Heart rate 92 /min Nikhil Arley [facility] 02-16-2024 10:30-0500 Mean blood pressure 107 mm[Hg] Nikhil Tubbs [facility] 02-16-2024 10:30-0500 Respiratory rate 12 /min Nikhil Arley [facility] 02-16-2024 10:30-0500 SaO2% (BldA) [Mass fraction] 94 % Nikhil Arley [facility] 02-16-2024 10:30-0500 Systolic blood pressure 138 mm[Hg] Nikhil Tubbs [facility] 02-16-2024 09:58-0500 Diastolic blood pressure 82 mm[Hg] Nikhil Arley [facility] 02-16-2024 09:58-0500 Heart rate 89 /min Nikhil Tubbs [facility] 02-16-2024 09:58-0500 Hourly Rounding Nikhil Tubbs [facility] 02-16-2024 09:58-0500 Mean blood pressure 99 mm[Hg] Nikhil Tubbs [facility] 02-16-2024 09:58-0500 Respiratory rate 17 /min Nikhil Tubbs [facility] 02-16-2024 09:58-0500 SaO2% (BldA) [Mass fraction] 95 % Nikhil Tubbs [facility] 02-16-2024 09:58-0500 Systolic blood pressure 132 mm[Hg] Nikhil Tubbs [facility] 02-16-2024 09:48-0500 Respiratory rate 16 /min Nikhil Tubbs [facility] 02-16-2024 09:43-0500 Respiratory rate 16 /min Nikhil Tubbs [facility] 02-16-2024 09:20-0500 Body temperature 98.24 [degF] Nikhil Tubbs [facility] 02-16-2024 09:20-0500 Heart rate 102 /min Nikhil Tubbs [facility] 02-16-2024 09:20-0500 Respiratory rate 17 /min Nikhil Tubbs [facility] 02-14-2024 15:00-0500 Diastolic blood pressure 94 mm[Hg] Jorge Mcintosh [facility] 02-14-2024 15:00-0500 Heart rate 86 /min Jorge Mcintosh [facility] 02-14-2024 15:00-0500 Mean blood pressure 108 mm[Hg] Jorge Mcintosh [facility] 02-14-2024 15:00-0500 SaO2% (BldA) [Mass fraction] 97 % Jorge Mcintosh [facility] 02-14-2024 15:00-0500 Systolic blood pressure 135 mm[Hg] Jorge Rodrigueze [facility] 02-14-2024 14:27-0500 Heart rate 83 /min Jorge Rodrigueze [facility] 02-14-2024 14:27-0500 Respiratory rate 20 /min Jorge Rodrigueze [facility] 02-14-2024 14:15-0500 Heart rate 74 /min Jorge Rodrigueze [facility] 02-14-2024 14:15-0500 Respiratory rate 20 /min Jorge Rodrigueze [facility] 02-14-2024 14:15-0500 SaO2% (BldA) [Mass fraction] 86 % Jorge Rodrigueze [facility] 02-14-2024 14:00-0500 Mean blood pressure 105 mm[Hg] Jorge Rodrigueze [facility] 02-14-2024 14:00-0500 Systolic blood pressure 134 mm[Hg] Jorge Rodrigueze [facility] 02-14-2024 12:19-0500 Body temperature 98.42 [degF] Jorge Rodrigueze [facility] 02-14-2024 12:19-0500 Diastolic blood pressure 90 mm[Hg] Jorge Rodrigueze [facility] 02-14-2024 12:19-0500 Heart rate 100 /min Jorge Rodrigueze [facility] 02-14-2024 12:19-0500 Systolic blood pressure 144 mm[Hg] Jorge Arnaldo [facility] 02-09-2024 14:00-0500 Diastolic blood pressure 88 mm[Hg] Allyson Hardwick MD Work Phone: [facility] 02-09-2024 14:00-0500 Heart rate 94 /min Allyson Hardwick MD Work Phone: [facility] 02-09-2024 14:00-0500 Respiratory rate 16 /min Allyson Hardwick MD Work Phone: [facility] 02-09-2024 14:00-0500 SaO2% (BldA) [Mass fraction] 95 % Allyson Hardwick MD Work Phone: [facility] 02-09-2024 14:00-0500 Systolic blood pressure 150 mm[Hg] Allyson Hardwick MD Work Phone: [facility] 02-09-2024 11:16-0500 Body temperature 98.2 [degF] Allyson Hardwick MD Work Phone: [facility] 02-09-2024 10:47-0500 Body height 160 cm Allyson Hardwick MD Work Phone: [facility] 02-09-2024 10:47-0500 Body mass index (BMI) [Ratio] 44.29 kg/m2 Allyson Hardwick MD Work Phone: [facility] 02-09-2024 10:47-0500 Body weight 113.4 kg Allyson Hardwick MD Work Phone: [facility] 02-06-2024 18:20-0500 Diastolic blood pressure 87 mm[Hg] Judah Woodard MD Work Phone: [facility] 02-06-2024 18:20-0500 Heart rate 95 /min Judah Woodard MD Work Phone: [facility] 02-06-2024 18:20-0500 Respiratory rate 18 /min Judah Woodard MD Work Phone: [facility] 02-06-2024 18:20-0500 SaO2% (BldA) [Mass fraction] 94 % Judah Woodard MD Work Phone: [facility] 02-06-2024 18:20-0500 Systolic blood pressure 134 mm[Hg] Judah Woodard MD Work Phone: [facility] 02-06-2024 17:05-0500 Body temperature 97.7 [degF] Judah Woodard MD Work Phone: [facility] 02-06-2024 13:03-0500 Body height 160 cm Judah Woodard MD Work Phone: [facility] 02-06-2024 13:03-0500 Body mass index (BMI) [Ratio] 43.74 kg/m2 Judah Woodard MD Work Phone: [facility] 02-06-2024 13:03-0500 Body weight 112 kg Judah Woodard MD Work Phone: [facility] 02-05-2024 20:37-0500 Diastolic blood pressure 70 mm[Hg] [facility] Work Phone: [facility] 02-05-2024 20:37-0500 Heart rate 70 /min [facility] Work Phone: [facility] 02-05-2024 20:37-0500 Respiratory rate 18 /min [facility] Work Phone: [facility] 02-05-2024 20:37-0500 SaO2% (BldA) [Mass fraction] 98 % [facility] Work Phone: [facility] 02-05-2024 20:37-0500 Systolic blood pressure 132 mm[Hg] [facility] Work Phone: [facility] 02-05-2024 19:12-0500 Body height 160.02 cm [facility] Work Phone: [facility] 02-05-2024 19:12-0500 Body temperature 98.3 [degF] [facility] Work Phone: [facility] 02-05-2024 19:12-0500 Body weight 114 kg [facility] Work Phone: [facility] 02-04-2024 17:03-0500 Body temperature 97.7 [degF] Jorge Mcintosh [facility] 02-04-2024 17:03-0500 Diastolic blood pressure 97 mm[Hg] Jorge Mcintosh [facility] 02-04-2024 17:03-0500 Heart rate 102 /min Jorge Mcintosh [facility] 02-04-2024 17:03-0500 Respiratory rate 18 /min Jorge Mcintosh [facility] 02-04-2024 17:03-0500 SaO2% (BldA) [Mass fraction] 99 % Jorge Mcintosh [facility] 02-04-2024 17:03-0500 Systolic blood pressure 149 mm[Hg] Jorge Mcintosh [facility] 02-04-2024 15:22-0500 Body height 160 cm Dino Melgoza MD Work Phone: [facility] 02-04-2024 15:22-0500 Body mass index (BMI) [Ratio] 44.29 kg/m2 Dino Melgoza MD Work Phone: [facility] 02-04-2024 15:22-0500 Body weight 113.4 kg Dino Melgoza MD Work Phone: [facility] 02-04-2024 15:22-0500 Diastolic blood pressure 93 mm[Hg] Dino Melgoza MD Work Phone: [facility] 02-04-2024 15:22-0500 Heart rate 101 /min Dino Melgoza MD Work Phone: [facility] 02-04-2024 15:22-0500 Respiratory rate 22 /min Dino Melgoza MD Work Phone: [facility] 02-04-2024 15:22-0500 SaO2% (BldA) [Mass fraction] 98 % Dino Melgoza MD Work Phone: [facility] 02-04-2024 15:22-0500 Systolic blood pressure 164 mm[Hg] Dino Melgoza MD Work Phone: [facility] 01-30-2024 12:00-0500 Diastolic blood pressure 103 mm[Hg] Marlee Fitzpatrick MD Work Phone: [facility] 01-30-2024 12:00-0500 Heart rate 60 /min Marlee Fitzpatrick MD Work Phone: [facility] 01-30-2024 12:00-0500 Respiratory rate 16 /min Marlee Fitzpatrick MD Work Phone: [facility] 01-30-2024 12:00-0500 SaO2% (BldA) [Mass fraction] 95 % Marlee Fitzpatrick MD Work Phone: [facility] 01-30-2024 12:00-0500 Systolic blood pressure 138 mm[Hg] Marlee Fitzpatrick MD Work Phone: [facility] 01-30-2024 11:00-0500 Body height 160 cm Marlee Fitzpatrick MD Work Phone: [facility] 01-30-2024 11:00-0500 Body mass index (BMI) [Ratio] 44.29 kg/m2 Marlee Fitzpatrick MD Work Phone: [facility] 01-30-2024 11:00-0500 Body temperature 98.1 [degF] Marlee Fitzpatrick MD Work Phone: [facility] 01-30-2024 11:00-0500 Body weight 113.4 kg Marlee Fitzpatrick MD Work Phone: [facility] 01-28-2024 08:15-0500 Body temperature 96.8 [degF] Giulia Man MD Work Phone: [facility] 01-28-2024 08:15-0500 Diastolic blood pressure 84 mm[Hg] Giulia Man MD Work Phone: [facility] 01-28-2024 08:15-0500 Heart rate 80 /min Giulia Man MD Work Phone: [facility] 01-28-2024 08:15-0500 Respiratory rate 16 /min Giulia Man MD Work Phone: [facility] 01-28-2024 08:15-0500 SaO2% (BldA) [Mass fraction] 99 % Giulia Man MD Work Phone: [facility] 01-28-2024 08:15-0500 Systolic blood pressure 151 mm[Hg] Giulia Man MD Work Phone: [facility] 01-27-2024 03:46-0500 Body height 160 cm Giulia Man MD Work Phone: [facility] 01-27-2024 03:46-0500 Body mass index (BMI) [Ratio] 44.29 kg/m2 Giulia Man MD Work Phone: [facility] 01-27-2024 03:46-0500 Body weight 113.4 kg Giulia Man MD Work Phone: [facility] 01-27-2024 02:45-0500 Diastolic blood pressure 83 mm[Hg] Bib Bowman MD Work Phone: [facility] 01-27-2024 02:45-0500 Heart rate 84 /min Bib Bowman MD Work Phone: [facility] 01-27-2024 02:45-0500 Respiratory rate 18 /min Bib Bowman MD Work Phone: [facility] 01-27-2024 02:45-0500 SaO2% (BldA) [Mass fraction] 98 % Bib Bowman MD Work Phone: [facility] 01-27-2024 02:45-0500 Systolic blood pressure 123 mm[Hg] Bib Bowman MD Work Phone: [facility] 01-26-2024 16:46-0500 Body height 160 cm Bib Bowman MD Work Phone: [facility] 01-26-2024 16:46-0500 Body mass index (BMI) [Ratio] 44.29 kg/m2 Bib Bowman MD Work Phone: [facility] 01-26-2024 16:46-0500 Body temperature 98.1 [degF] Bib Bowman MD Work Phone: [phone] [place] [address] 01-26-2024 16:46-0500 Body weight 113.4 kg Bib Bowman MD Work Phone: [facility] 01-26-2024 11:48-0500 Body height 160.02 cm [facility] Work Phone: [facility] 01-26-2024 11:48-0500 Body temperature 97.6 [degF] [facility] Work Phone: [facility] 01-26-2024 11:48-0500 Body weight 116 kg [facility] Work Phone: [facility] 01-26-2024 11:48-0500 Diastolic blood pressure 84 mm[Hg] [facility] Work Phone: [facility] 01-26-2024 11:48-0500 Heart rate 80 /min [facility] Work Phone: [facility] 01-26-2024 11:48-0500 Respiratory rate 16 /min [facility] Work Phone: [facility] 01-26-2024 11:48-0500 SaO2% (BldA) [Mass fraction] 100 % [facility] Work Phone: [facility] 01-26-2024 11:48-0500 Systolic blood pressure 162 mm[Hg] Services [facility] Work Phone: [facility] 01-25-2024 15:35-0400 Body temperature 97.88 [degF] Jorge Mcintosh [facility] 01-25-2024 15:35-0400 Diastolic blood pressure 89 mm[Hg] Jorge Mcintosh [facility] 01-25-2024 15:35-0400 Heart rate 83 /min Jorge Mcintosh [facility] 01-25-2024 15:35-0400 Respiratory rate 16 /min Jorge Mcintosh [facility] 01-25-2024 15:35-0400 SaO2% (BldA) [Mass fraction] 100 % Jorge Mcintosh [facility] 01-25-2024 15:35-0400 Systolic blood pressure 176 mm[Hg] Jorge Mcintosh [facility] 01-24-2024 20:19-0400 Diastolic blood pressure 89 mm[Hg] Marlee Fitzpatrick MD Work Phone: [facility] 01-24-2024 20:19-0400 Heart rate 80 /min Marlee Fitzpatrick MD Work Phone: [facility] 01-24-2024 20:19-0400 Respiratory rate 18 /min Marlee Fitzpatrick MD Work Phone: [facility] 01-24-2024 20:19-0400 SaO2% (BldA) [Mass fraction] 99 % Marlee Fitzpatrick MD Work Phone: [facility] 01-24-2024 20:19-0400 Systolic blood pressure 180 mm[Hg] Marlee Fitzpatrick MD Work Phone: [facility] 01-24-2024 19:50-0400 Body height 160 cm Marlee Fitzpatrick MD Work Phone: [facility] 01-24-2024 19:50-0400 Body mass index (BMI) [Ratio] 44.29 kg/m2 Marlee Fitzpatrick MD Work Phone: [facility] 01-24-2024 19:50-0400 Body temperature 97.2 [degF] Marlee Fitzpatrick MD Work Phone: [facility] 01-24-2024 19:50-0400 Body weight 113.4 kg Marlee Fitzpatrick MD Work Phone: [facility] 01-23-2024 17:00-0400 Diastolic blood pressure 100 mm[Hg] [facility] 01-23-2024 17:00-0400 Mean blood pressure 116 mm[Hg] [facility] 01-23-2024 17:00-0400 Systolic blood pressure 149 mm[Hg] [facility] 01-23-2024 16:00-0400 Diastolic blood pressure 66 mm[Hg] [facility] 01-23-2024 16:00-0400 Mean blood pressure 87 mm[Hg] [facility] 01-23-2024 16:00-0400 Systolic blood pressure 130 mm[Hg] [facility] 01-23-2024 15:41-0400 Diastolic blood pressure 78 mm[Hg] [facility] 01-23-2024 15:41-0400 Mean blood pressure 90 mm[Hg] [facility] 01-23-2024 15:41-0400 Systolic blood pressure 115 mm[Hg] [facility] 01-23-2024 14:01-0400 Body temperature 97.7 [degF] [facility] 01-23-2024 14:01-0400 Heart rate 88 /min [facility] 01-23-2024 14:01-0400 Respiratory rate 18 /min [facility] 01-23-2024 14:01-0400 SaO2% (BldA) [Mass fraction] 98 % [facility] 01-21-2024 17:30-0400 Diastolic blood pressure 87 mm[Hg] Marlee Fitzpatrick MD Work Phone: [facility] 01-21-2024 17:30-0400 Heart rate 88 /min Marlee Fitzpatrick MD Work Phone: [facility] 01-21-2024 17:30-0400 Respiratory rate 16 /min Marlee Fitzpatrick MD Work Phone: [facility] 01-21-2024 17:30-0400 SaO2% (BldA) [Mass fraction] 96 % Marlee Fitzpatrick MD Work Phone: [facility] 01-21-2024 17:30-0400 Systolic blood pressure 161 mm[Hg] Marlee Fitzpatrick MD Work Phone: [facility] 01-21-2024 14:30-0400 Body height 160 cm Marlee Fitzpatrick MD Work Phone: [facility] 01-21-2024 14:30-0400 Body mass index (BMI) [Ratio] 44.29 kg/m2 Marlee Fitzpatrick MD Work Phone: [facility] 01-21-2024 14:30-0400 Body temperature 98.4 [degF] Marlee Fitzpatrick MD Work Phone: [facility] 01-21-2024 14:30-0400 Body weight 113.4 kg Marlee Fitzpatrick MD Work Phone: [facility] 01-16-2024 21:30-0400 Body height 160.02 cm [facility] [employer] [facility] Work Phone: [facility] 01-16-2024 21:30-0400 Body temperature 97.8 [degF] [facility] [employer] Work Phone: [facility] 01-16-2024 21:30-0400 Body weight 113.39 kg [facility] [employer] [facility] Work Phone: [facility] 01-16-2024 21:30-0400 Diastolic blood pressure 69 mm[Hg] [facility] [employer] Work Phone: [facility] 01-16-2024 21:30-0400 Heart rate 85 /min [facility] [employer] Work Phone: [facility] 01-16-2024 21:30-0400 Respiratory rate 20 /min [facility] Work Phone: [facility] 01-16-2024 21:30-0400 SaO2% (BldA) [Mass fraction] 98 % [facility] [employer] Work Phone: [facility] 01-16-2024 21:30-0400 Systolic blood pressure 136 mm[Hg] [facility] [employer] Work Phone: [facility] 01-14-2024 19:20-0400 Body temperature 98.06 [degF] Nikhil Tubbs [facility] 01-14-2024 19:20-0400 Diastolic blood pressure 88 mm[Hg] Nikhil Tubbs [facility] 01-14-2024 19:20-0400 Heart rate 113 /min Nikhil Tubbs [facility] 01-14-2024 19:20-0400 Respiratory rate 20 /min Nikhil Tubbs [facility] 01-14-2024 19:20-0400 SaO2% (BldA) [Mass fraction] 97 % Nikhil Tubbs [facility] 01-14-2024 19:20-0400 Systolic blood pressure 136 mm[Hg] Nikhil Arley [facility] 01-14-2024 13:38-0400 Body height 160 cm Judah Woodard MD Work Phone: [facility] 01-14-2024 13:38-0400 Body mass index (BMI) [Ratio] 44.29 kg/m2 Judah Woodard MD Work Phone: [facility] 01-14-2024 13:38-0400 Body temperature 97.2 [degF] Judah Woodard MD Work Phone: [facility] 01-14-2024 13:38-0400 Body weight 113.4 kg Judah Woodard MD Work Phone: [facility] 01-14-2024 13:38-0400 Diastolic blood pressure 82 mm[Hg] Judah Woodard MD Work Phone: [facility] 01-14-2024 13:38-0400 Heart rate 88 /min Judah Woodard MD Work Phone: [facility] 01-14-2024 13:38-0400 Systolic blood pressure 141 mm[Hg] Judah Woodard MD Work Phone: [facility] 01-13-2024 13:51-0400 Body height 160 cm Marlee Fitzpatrick MD Work Phone: [facility] 01-13-2024 13:51-0400 Body mass index (BMI) [Ratio] 44.29 kg/m2 Marlee Fitzpatrick MD Work Phone: [facility] 01-13-2024 13:51-0400 Body temperature 97.9 [degF] Marlee Fitzpatrick MD Work Phone: [facility] 01-13-2024 13:51-0400 Body weight 113.4 kg Marlee Fitzpatrick MD Work Phone: [facility] 01-13-2024 13:51-0400 Diastolic blood pressure 78 mm[Hg] Marlee Fitzpatrick MD Work Phone: [facility] 01-13-2024 13:51-0400 Heart rate 91 /min Marlee Fitzpatrick MD Work Phone: [facility] 01-13-2024 13:51-0400 Respiratory rate 16 /min Marlee Fitzpatrick MD Work Phone: [facility] 01-13-2024 13:51-0400 SaO2% (BldA) [Mass fraction] 96 % Marlee Fitzpatrick MD Work Phone: [facility] 01-13-2024 13:51-0400 Systolic blood pressure 153 mm[Hg] Marlee Fitzpatrick MD Work Phone: [facility] 01-10-2024 22:00-0400 Diastolic blood pressure 77 mm[Hg] Marlee Fitzpatrick MD Work Phone: [facility] 01-10-2024 22:00-0400 Heart rate 91 /min Marlee Fitzpatrick MD Work Phone: [facility] 01-10-2024 22:00-0400 Respiratory rate 18 /min Marlee Fitzpatrick MD Work Phone: [facility] 01-10-2024 22:00-0400 SaO2% (BldA) [Mass fraction] 96 % Marlee Fitzpatrick MD Work Phone: [facility] 01-10-2024 22:00-0400 Systolic blood pressure 142 mm[Hg] Marlee Fitzpatrick MD Work Phone: [facility] 01-10-2024 18:16-0400 Body height 160 cm Marlee Fitzpatrick MD Work Phone: [facility] 01-10-2024 18:16-0400 Body mass index (BMI) [Ratio] 44.29 kg/m2 Marlee Fitzpatrick MD Work Phone: [facility] 01-10-2024 18:16-0400 Body temperature 98.2 [degF] Marlee Fitzpatrick MD Work Phone: [facility] 01-10-2024 18:16-0400 Body weight 113.4 kg Marlee Fitzpatrick MD Work Phone: [facility] 01-08-2024 12:24-0400 Body temperature 96.6 [degF] Ace Rodgers MD Work Phone: [facility] 01-08-2024 12:24-0400 Diastolic blood pressure 104 mm[Hg] Ace Rodgers MD Work Phone: [facility] 01-08-2024 12:24-0400 Heart rate 75 /min Ace Rodgers MD Work Phone: [facility] 01-08-2024 12:24-0400 Respiratory rate 17 /min Ace Rodgers MD Work Phone: [facility] 01-08-2024 12:24-0400 SaO2% (BldA) [Mass fraction] 94 % Ace Rodgers MD Work Phone: [facility] 01-08-2024 12:24-0400 Systolic blood pressure 145 mm[Hg] Ace Rodgers MD Work Phone: [facility] 01-06-2024 17:14-0400 Body height 160 cm Ace Rodgers MD Work Phone: [facility] 01-06-2024 17:14-0400 Body mass index (BMI) [Ratio] 44.29 kg/m2 Ace Rodgers MD Work Phone: [facility] 01-06-2024 17:14-0400 Body weight 113.4 kg Ace Rodgers MD Work Phone: [facility] 01-06-2024 11:43-0400 Body temperature 98.06 [degF] Jorge Mcintosh [facility] 01-06-2024 11:43-0400 Diastolic blood pressure 86 mm[Hg] Jorge Mcintosh [facility] 01-06-2024 11:43-0400 Heart rate 83 /min Jorge Mcintosh [facility] 01-06-2024 11:43-0400 Respiratory rate 18 /min Jorge Mcintosh [facility] 01-06-2024 11:43-0400 SaO2% (BldA) [Mass fraction] 97 % Jorge Mcintosh [facility] 01-06-2024 11:43-0400 Systolic blood pressure 154 mm[Hg] Jorge Mcintosh [facility] 01-04-2024 12:16-0400 Body temperature 97.7 [degF] Ace Rodgers MD Work Phone: [facility] 01-04-2024 12:16-0400 Diastolic blood pressure 97 mm[Hg] Ace Rodgers MD Work Phone: [facility] 01-04-2024 12:16-0400 Heart rate 87 /min Ace Rodgers MD Work Phone: [facility] 01-04-2024 12:16-0400 Respiratory rate 19 /min Ace Rodgers MD Work Phone: [facility] 01-04-2024 12:16-0400 SaO2% (BldA) [Mass fraction] 97 % Ace Rodgers MD Work Phone: [facility] 01-04-2024 12:16-0400 Systolic blood pressure 147 mm[Hg] Ace Rodgers MD Work Phone: [facility] 01-01-2024 23:49-0400 Body height 160 cm Ace Rodgers MD Work Phone: [facility] 01-01-2024 23:49-0400 Body mass index (BMI) [Ratio] 45.61 kg/m2 Ace Rodgers MD Work Phone: [facility] 01-01-2024 23:49-0400 Body weight 116.8 kg Ace Rodgers MD Work Phone: [facility] 12-30-2023 19:14-0400 Body height 160 cm No Generic Provider [facility] 12-30-2023 19:14-0400 Body mass index (BMI) [Ratio] 44.64 kg/m2 No Generic Provider [facility] 12-30-2023 19:14-0400 Body temperature 97 [degF] No Generic Provider [facility] 12-30-2023 19:14-0400 Body weight 114.31 kg No Generic Provider [facility] 12-30-2023 19:14-0400 Diastolic blood pressure 87 mm[Hg] No Generic Provider [facility] 12-30-2023 19:14-0400 Heart rate 86 /min No Generic Provider [facility] 12-30-2023 19:14-0400 Respiratory rate 16 /min No Generic Provider [facility] 12-30-2023 19:14-0400 SaO2% (BldA) [Mass fraction] 98 % No Generic Provider [facility] 12-30-2023 19:14-0400 Systolic blood pressure 150 mm[Hg] No Generic Provider [facility] 12-27-2023 13:45-0400 Body height 160 cm Elke Adams MD Work Phone: [facility] 12-27-2023 13:45-0400 Body mass index (BMI) [Ratio] 45.17 kg/m2 Elke Adams MD Work Phone: [facility] 12-27-2023 13:45-0400 Body weight 115.67 kg Elke Adams MD Work Phone: [facility] 12-27-2023 13:45-0400 Diastolic blood pressure 68 mm[Hg] Elke Adams MD Work Phone: [facility] 12-27-2023 13:45-0400 Heart rate 91 /min Elke Adams MD Work Phone: [facility] 12-27-2023 13:45-0400 Respiratory rate 16 /min Elke Adams MD Work Phone: [facility] 12-27-2023 13:45-0400 Systolic blood pressure 114 mm[Hg] Elke Adams MD Work Phone: [facility] 12-26-2023 22:24-0400 Heart rate 93 /min Nikhil Tubbs [facility] 12-26-2023 22:24-0400 Respiratory rate 18 /min Nikhil Tubbs [facility] 12-26-2023 22:24-0400 SaO2% (BldA) [Mass fraction] 99 % Nikhil Tubbs [facility] 12-26-2023 18:13-0400 Body temperature 98.24 [degF] Nikhil Tubbs [facility] 12-26-2023 18:13-0400 Diastolic blood pressure 85 mm[Hg] Nikhil Tubbs [facility] 12-26-2023 18:13-0400 Heart rate 108 /min Nikhil Arley [facility] 12-26-2023 18:13-0400 Respiratory rate 18 /min Nikhil Arley [facility] 12-26-2023 18:13-0400 SaO2% (BldA) [Mass fraction] 98 % Nikhil Tubbs [facility] 12-26-2023 18:13-0400 Systolic blood pressure 140 mm[Hg] Nikhil Tubbs [facility] 12-26-2023 15:35-0400 Body height 160.02 cm Services [facility] [employer] Work Phone: [facility] 12-26-2023 15:35-0400 Body temperature 97.9 [degF] Services [employer] Work Phone: [facility] 12-26-2023 15:35-0400 Body weight 114.1 kg Services [facility] [employer] Work Phone: [facility] 12-26-2023 15:35-0400 Diastolic blood pressure 79 mm[Hg] Services [employer] Work Phone: [facility] 12-26-2023 15:35-0400 Heart rate 95 /min Services [facility] [employer] Work Phone: [facility] 12-26-2023 15:35-0400 Respiratory rate 17 /min Services [facility] [employer] Work Phone: [facility] 12-26-2023 15:35-0400 SaO2% (BldA) [Mass fraction] 98 % Services [facility] [employer] Work Phone: [facility] 12-26-2023 15:35-0400 Systolic blood pressure 140 mm[Hg] Services [facility] [employer] Work Phone: [facility] 12-24-2023 16:53-0400 Diastolic blood pressure 88 mm[Hg] [facility] 12-24-2023 16:53-0400 Heart rate 83 /min [facility] 12-24-2023 16:53-0400 Mean blood pressure 106 mm[Hg] [facility] 12-24-2023 16:53-0400 Respiratory rate 19 /min [facility] 12-24-2023 16:53-0400 SaO2% (BldA) [Mass fraction] 98 % [facility] 12-24-2023 16:53-0400 Systolic blood pressure 142 mm[Hg] [facility] 12-24-2023 16:00-0400 Diastolic blood pressure 124 mm[Hg] [facility] 12-24-2023 16:00-0400 Heart rate 89 /min [facility] 12-24-2023 16:00-0400 Mean blood pressure 130 mm[Hg] [facility] 12-24-2023 16:00-0400 SaO2% (BldA) [Mass fraction] 99 % [facility] 12-24-2023 14:27-0400 Body temperature 98.24 [degF] [facility] 12-24-2023 14:27-0400 Diastolic blood pressure 97 mm[Hg] [facility] 12-24-2023 14:27-0400 Heart rate 68 /min [facility] 12-24-2023 14:27-0400 Respiratory rate 20 /min [facility] 12-24-2023 14:27-0400 SaO2% (BldA) [Mass fraction] 94 % [facility] 12-24-2023 14:27-0400 Systolic blood pressure 174 mm[Hg] [facility] 12-24-2023 10:44-0400 Body height 160 cm Chidi Joseph MD Work Phone: [facility] 12-24-2023 10:44-0400 Body mass index (BMI) [Ratio] 45.17 kg/m2 Chidi Joseph MD Work Phone: [facility] 12-24-2023 10:44-0400 Body temperature 98.29 [degF] Chidi Joseph MD Work Phone: [facility] 12-24-2023 10:44-0400 Body weight 115.67 kg Chidi Joseph MD Work Phone: [facility] 12-24-2023 10:44-0400 Diastolic blood pressure 82 mm[Hg] Chidi Joseph MD Work Phone: [facility] 12-24-2023 10:44-0400 Heart rate 66 /min Chidi Joseph MD Work Phone: [facility] 12-24-2023 10:44-0400 Systolic blood pressure 147 mm[Hg] Chidi Joseph MD Work Phone: [facility] 12-13-2023 13:40-0400 Body temperature 98.42 [degF] Jorge Mcintosh [facility] 12-13-2023 13:40-0400 Diastolic blood pressure 90 mm[Hg] Jorge Mcintosh [facility] 12-13-2023 13:40-0400 Heart rate 91 /min Jorge Mcintosh [facility] 12-13-2023 13:40-0400 Respiratory rate 18 /min Jorge Mcintosh [facility] 12-13-2023 13:40-0400 SaO2% (BldA) [Mass fraction] 99 % Jorge Mcintosh [facility] 12-13-2023 13:40-0400 Systolic blood pressure 134 mm[Hg] Jorge Mcintosh [facility] 12-12-2023 18:58-0400 Body height 160.02 cm Services [employer] Work Phone: [facility] 12-12-2023 18:58-0400 Body temperature 98.2 [degF] Services [employer] Work Phone: [facility] 12-12-2023 18:58-0400 Body weight 115 kg Services [employer] Work Phone: [facility] 12-12-2023 18:58-0400 Diastolic blood pressure 104 mm[Hg] Services [facility] Work Phone: [facility] 12-12-2023 18:58-0400 Heart rate 92 /min Services [facility] Work Phone: [facility] 12-12-2023 18:58-0400 Respiratory rate 18 /min Services [facility] Work Phone: [facility] 12-12-2023 18:58-0400 SaO2% (BldA) [Mass fraction] 99 % Services [facility] Work Phone: [facility] 12-12-2023 18:58-0400 Systolic blood pressure 182 mm[Hg] Services [facility] Work Phone: [facility] 12-04-2023 23:01-0400 Diastolic blood pressure 69 mm[Hg] Ben Urbina MD Work Phone: [facility] [employer] 12-04-2023 23:01-0400 Heart rate 77 /min Ben Urbina MD Work Phone: [facility] [employer] 12-04-2023 23:01-0400 Respiratory rate 16 /min Ben Urbina MD Work Phone: [facility] [employer] 12-04-2023 23:01-0400 SaO2% (BldA) [Mass fraction] 96 % Ben Urbina MD Work Phone: [facility] [employer] 12-04-2023 23:01-0400 Systolic blood pressure 117 mm[Hg] [facility] 12-04-2023 21:54-0400 Body height 160 cm Ben Urbina MD Work Phone: [facility] [employer] 12-04-2023 21:54-0400 Body mass index (BMI) [Ratio] 44.29 kg/m2 Ben Urbina MD Work Phone: [facility] [employer] 12-04-2023 21:54-0400 Body temperature 98.2 [degF] Ben Urbina MD Work Phone: [facility] 12-04-2023 21:54-0400 Body weight 113.4 kg Ben Urbina MD Work Phone: [facility] 12-02-2023 01:30-0400 Diastolic blood pressure 105 mm[Hg] Services [facility] [employer] Work Phone: [facility] 12-02-2023 01:30-0400 Heart rate 74 /min Services [facility] [employer] Work Phone: [facility] 12-02-2023 01:30-0400 Respiratory rate 18 /min Services [facility] Work Phone: [facility] 12-02-2023 01:30-0400 SaO2% (BldA) [Mass fraction] 96 % Services [facility] Work Phone: [facility] 12-02-2023 01:30-0400 Systolic blood pressure 133 mm[Hg] Services [facility] Work Phone: [facility] 12-01-2023 19:36-0400 Body height 160.02 cm Services [facility] Work Phone: [facility] 12-01-2023 19:36-0400 Body temperature 98.2 [degF] Services [facility] Work Phone: [facility] 12-01-2023 19:36-0400 Body weight 115.5 kg Services [facility] [employer] Work Phone: [facility] 12-01-2023 11:53-0400 Body temperature 97.88 [degF] [facility] 12-01-2023 11:53-0400 Diastolic blood pressure 82 mm[Hg] [facility] 12-01-2023 11:53-0400 Heart rate 72 /min [facility] 12-01-2023 11:53-0400 Respiratory rate 18 /min [facility] 12-01-2023 11:53-0400 SaO2% (BldA) [Mass fraction] 97 % [facility] 12-01-2023 11:53-0400 Systolic blood pressure 124 mm[Hg] [facility] 11-27-2023 19:47-0400 Diastolic blood pressure 98 mm[Hg] [facility] 11-27-2023 19:47-0400 Heart rate 79 /min [facility] 11-27-2023 19:47-0400 Respiratory rate 18 /min [facility] 11-27-2023 19:47-0400 SaO2% (BldA) [Mass fraction] 98 % [facility] 11-27-2023 19:47-0400 Systolic blood pressure 143 mm[Hg] [facility] 11-27-2023 17:51-0400 Body temperature 98.24 [degF] [facility] 11-27-2023 17:51-0400 Diastolic blood pressure 78 mm[Hg] [facility] 11-27-2023 17:51-0400 Heart rate 103 /min [facility] 11-27-2023 17:51-0400 Respiratory rate 15 /min [facility] 11-27-2023 17:51-0400 SaO2% (BldA) [Mass fraction] 97 % [facility] 11-27-2023 17:51-0400 Systolic blood pressure 120 mm[Hg] [facility] 11-26-2023 23:48-0400 Respiratory rate 18 /min No [facility] 11-26-2023 21:50-0400 Body height 160.02 cm No [facility] 11-26-2023 21:50-0400 Body mass index (BMI) [Ratio] 44.6 kg/m2 No [facility] 11-26-2023 21:50-0400 Body temperature 97.7 [degF] No [facility] 11-26-2023 21:50-0400 Body weight 114.4 kg No [facility] 11-26-2023 21:50-0400 Diastolic blood pressure 91 mm[Hg] No [facility] 11-26-2023 21:50-0400 Heart rate 67 /min No [facility] 11-26-2023 21:50-0400 SaO2% (BldA) [Mass fraction] 98 % No [facility] 11-26-2023 21:50-0400 Systolic blood pressure 150 mm[Hg] No [facility] 11-25-2023 20:33-0400 Diastolic blood pressure 81 mm[Hg] [facility] Work Phone: [facility] 11-25-2023 20:33-0400 Heart rate 78 /min [facility] Work Phone: [facility] 11-25-2023 20:33-0400 Respiratory rate 18 /min [facility] Work Phone: [facility] 11-25-2023 20:33-0400 SaO2% (BldA) [Mass fraction] 97 % [facility] Work Phone: [facility] 11-25-2023 20:33-0400 Systolic blood pressure 140 mm[Hg] [facility] Work Phone: [facility] 11-25-2023 18:54-0400 Body height 160.02 cm [facility] Work Phone: [facility] 11-25-2023 18:54-0400 Body temperature 98.2 [degF] [facility] Work Phone: [facility] 11-25-2023 18:54-0400 Body weight 116.7 kg [facility] Work Phone: [facility] 11-24-2023 13:42-0400 Body temperature 98.06 [degF] Balbina Bryant [facility] 11-24-2023 13:42-0400 Diastolic blood pressure 90 mm[Hg] Astrit Hajdari [facility] 11-24-2023 13:42-0400 Heart rate 93 /min [facility] 11-24-2023 13:42-0400 Respiratory rate 19 /min [facility] 11-24-2023 13:42-0400 SaO2% (BldA) [Mass fraction] 98 % [facility] 11-24-2023 13:42-0400 Systolic blood pressure 132 mm[Hg] [facility] 11-10-2023 23:39-0400 Diastolic blood pressure 76 mm[Hg] Services [employer] Work Phone: [facility] 11-10-2023 23:39-0400 Heart rate 97 /min Services [facility] [employer] Work Phone: [facility] 11-10-2023 23:39-0400 Respiratory rate 20 /min Services [facility] [employer] Work Phone: [facility] 11-10-2023 23:39-0400 Systolic blood pressure 158 mm[Hg] Services [facility] [employer] Work Phone: [facility] 11-10-2023 22:44-0400 SaO2% (BldA) [Mass fraction] 95 % Services [employer] Work Phone: [facility] 11-10-2023 18:38-0400 Body height 160.02 cm Services [employer] Work Phone: [facility] 11-10-2023 18:38-0400 Body temperature 97.9 [degF] Services [facility] [employer] Work Phone: [facility] 11-10-2023 18:38-0400 Body weight 115 kg Services [employer] Work Phone: [facility] 11-05-2023 19:45-0400 Body temperature 98.06 [degF] [employer] [facility] 11-05-2023 19:45-0400 Diastolic blood pressure 92 mm[Hg] Pedro Pablo Chance [facility] 11-05-2023 19:45-0400 Heart rate 74 /min Pedro Pablo Chance [facility] 11-05-2023 19:45-0400 Respiratory rate 18 /min Pedro Pablo Chance [facility] 11-05-2023 19:45-0400 SaO2% (BldA) [Mass fraction] 95 % Pedro Pablo Chance [facility] 11-05-2023 19:45-0400 Systolic blood pressure 151 mm[Hg] Pedro Pablo Chance [facility] 10-31-2023 00:00-0400 Diastolic blood pressure 70 mm[Hg] Aaliyah Fischer I, DO Work Phone: [facility] [employer] 10-31-2023 00:00-0400 Heart rate 69 /min Aaliyah Fischer I, DO [facility] 10-31-2023 00:00-0400 Respiratory rate 19 /min Aaliyah Fischer I, DO Work Phone: [facility] 10-31-2023 00:00-0400 SaO2% (BldA) [Mass fraction] 96 % Aaliyah Montenegroour I, DO Work Phone: [facility] 10-31-2023 00:00-0400 Systolic blood pressure 127 mm[Hg] Aaliyah Montenegroour I, DO Work Phone: [facility] 10-30-2023 20:06-0400 Body temperature 97.7 [degF] Aaliyah Montenegroour I, DO Work Phone: [facility] 10-30-2023 18:01-0400 Body height 160 cm Aaliyah Montenegroour I, DO Work Phone: [facility] 10-30-2023 18:01-0400 Body mass index (BMI) [Ratio] 44.29 kg/m2 Aaliyah Fischer I, DO Work Phone: [facility] 10-30-2023 18:01-0400 Body weight 113.4 kg Aaliyah Fischer I, DO Work Phone: [facility] 10-30-2023 12:14-0400 Body temperature 98.24 [degF] [facility] 10-30-2023 12:14-0400 Diastolic blood pressure 96 mm[Hg] [facility] 10-30-2023 12:14-0400 Heart rate 91 /min [facility] 10-30-2023 12:14-0400 Respiratory rate 20 /min [facility] 10-30-2023 12:14-0400 SaO2% (BldA) [Mass fraction] 98 % [facility] 10-30-2023 12:14-0400 Systolic blood pressure 146 mm[Hg] [facility] 10-26-2023 02:43-0400 Body temperature 97.7 [degF] Pedro Pablo Chance [facility] 10-26-2023 02:43-0400 Diastolic blood pressure 92 mm[Hg] Pedro Pablo Chance [facility] 10-26-2023 02:43-0400 Heart rate 82 /min Pedro Pablo Chance [facility] 10-26-2023 02:43-0400 Respiratory rate 16 /min Pedro Pablo Chance [facility] 10-26-2023 02:43-0400 SaO2% (BldA) [Mass fraction] 94 % Pedro Pablo Chance [facility] 10-26-2023 02:43-0400 Systolic blood pressure 143 mm[Hg] Pedro Pablo Chance [facility] 10-19-2023 13:04-0400 Body temperature 98.1 [degF] [...] Systolic blood pressure 134 mm[Hg] Services [facility] [employer] Work Phone: [facility] 10-05-2023 14:36-0400 Body height 163.83 cm Services [facility] [employer] Work Phone: [facility] 10-05-2023 14:36-0400 Body temperature 98 [degF] Services [facility] Work Phone: [facility] 10-05-2023 14:36-0400 Body weight 115 kg Services [employer] Work Phone: [facility] 10-04-2023 14:48-0400 Body temperature 98.06 [degF] Jorge Mcintosh [facility] 10-04-2023 14:48-0400 Diastolic blood pressure 75 mm[Hg] Jorge Mcintosh [facility] 10-04-2023 14:48-0400 Heart rate 72 /min Jorge Rodrigueze [facility] 10-04-2023 14:48-0400 Respiratory rate 16 /min Jorge Mcintosh [facility] 10-04-2023 14:48-0400 SaO2% (BldA) [Mass fraction] 97 % Jorge Mcintosh [facility] 10-04-2023 14:48-0400 Systolic blood pressure 153 mm[Hg] Jorge Mcintosh [facility] 09-25-2023 11:41-0400 Body temperature 98.24 [degF] [facility] 09-25-2023 11:41-0400 Diastolic blood pressure 105 mm[Hg] [facility] 09-25-2023 11:41-0400 Heart rate 105 /min [facility] 09-25-2023 11:41-0400 Respiratory rate 18 /min [facility] 09-25-2023 11:41-0400 SaO2% (BldA) [Mass fraction] 95 % [facility]-25-[facility]23 11:41-0400 Systolic blood pressure 173 mm[Hg] [facility] 09-21-2023 11:15-0400 Body temperature 98.24 [degF] Nikhil Tubbs [facility] 09-21-2023 11:15-0400 Diastolic blood pressure 65 mm[Hg] Nikhil Tubbs [facility] 09-21-2023 11:15-0400 Heart rate 100 /min Nikhil Tubbs [facility] 09-21-2023 11:15-0400 Respiratory rate 18 /min Nikhil Tubbs [facility] 09-21-2023 11:15-0400 SaO2% (BldA) [Mass fraction] 98 % Nikhil Tubbs [facility] 09-21-2023 11:15-0400 Systolic blood pressure 121 mm[Hg] Nikhil Tubbs [facility] 09-20-2023 10:55-0400 Body temperature 97.52 [degF] Jorge Mcintosh [facility] 09-20-2023 10:55-0400 Diastolic blood pressure 85 mm[Hg] Jorge Rodrigueze [facility] 09-20-2023 10:55-0400 Heart rate 102 /min Jorge Rodrigueze [facility] 09-20-2023 10:55-0400 Respiratory rate 97 /min Jorge Rodrigueze [facility] 09-20-2023 10:55-0400 SaO2% (BldA) [Mass fraction] 99 % Jorge Mcintosh [facility] 09-20-2023 10:55-0400 Systolic blood pressure 166 mm[Hg] Jorge Mcintosh [facility] 09-17-2023 17:45-0400 Blood Pressure Location Dax Lira [facility] 09-17-2023 17:45-0400 Body temperature 98.6 [degF] Dax Lira [facility] 09-17-2023 17:45-0400 Diastolic blood pressure 88 mm[Hg] Dax Lira [facility] 09-17-2023 17:45-0400 Heart rate 92 /min Dax Lira [facility] 09-17-2023 17:45-0400 Respiratory rate 16 /min Dax Lira [facility] 09-17-2023 17:45-0400 SaO2% (BldA) [Mass fraction] 98 % Dax Lira [facility] 09-17-2023 17:45-0400 Systolic blood pressure 130 mm[Hg] Dax Lira [facility] 09-10-2023 14:06-0400 Diastolic blood pressure 61 mm[Hg] Benja Lid DO Work Phone: [facility] [employer] 09-10-2023 14:06-0400 Systolic blood pressure 140 mm[Hg] Benja Radha DO Work Phone: [facility] [employer] 09-10-2023 14:02-0400 Body height 160 cm Benja Clarkeoud DO Work Phone: [facility] [employer] 09-10-2023 14:02-0400 Body mass index (BMI) [Ratio] 38.09 kg/m2 Benja Mishra DO Work Phone: [employer] 09-10-2023 14:02-0400 Body temperature 98.29 [degF] Benja Mishra DO Work Phone: [employer] 09-10-2023 14:02-0400 Body weight 97.52 kg Benja Mishra DO Work Phone: [facility] [employer] 09-10-2023 14:02-0400 Heart rate 83 /min Benja Mishra DO Work Phone: [facility] [employer] 09-10-2023 14:02-0400 Respiratory rate 17 /min Benja Mishra DO Work Phone: [facility] 09-10-2023 14:02-0400 SaO2% (BldA) [Mass fraction] 97 % Benja Mishra DO Work Phone: [facility] 09-09-2023 22:30-0400 Blood Pressure Location Jorge Mcintosh [facility] 09-09-2023 22:30-0400 Diastolic blood pressure 67 mm[Hg] Jorge Mcintosh [facility] 09-09-2023 22:30-0400 Heart rate 71 /min Jorge Mcintosh [facility] 09-09-2023 22:30-0400 Mean blood pressure 87 mm[Hg] Jorge Mcintosh [facility] 09-09-2023 22:30-0400 Respiratory rate 16 /min Jorge Mcintosh [facility] 09-09-2023 22:30-0400 SaO2% (BldA) [Mass fraction] 99 % Jorge Mcintosh [facility] 09-09-2023 22:30-0400 Systolic blood pressure 126 mm[Hg] Jorge Arnaldo [facility] 09-09-2023 21:30-0400 Blood Pressure Location Jorge Rodrigueze [facility] 09-09-2023 21:30-0400 Diastolic blood pressure 76 mm[Hg] Jorge Rodrigueze [facility] 09-09-2023 21:30-0400 Heart rate 80 /min Jorge Rodrigueze [facility] 09-09-2023 21:30-0400 Mean blood pressure 96 mm[Hg] Jorge Rodrigueze [facility] 09-09-2023 21:30-0400 Respiratory rate 16 /min Jorge Rodrigueze [facility] 09-09-2023 21:30-0400 SaO2% (BldA) [Mass fraction] 98 % Jorge Rodrigueze [facility] 09-09-2023 21:30-0400 Systolic blood pressure 136 mm[Hg] Jorge Rodrigueze [facility] 09-09-2023 21:00-0400 Diastolic blood pressure 62 mm[Hg] Jorge Rodrigueze [facility] 09-09-2023 21:00-0400 Heart rate 79 /min Jorge Rodrigueze [facility] 09-09-2023 21:00-0400 SaO2% (BldA) [Mass fraction] 94 % Jorge Rodrigueze [facility] 09-09-2023 19:12-0400 Heart rate 96 /min Jorge Rodrigueze [facility] 09-08-2023 18:37-0400 Body height 162.56 cm [facility] Work Phone: [facility] 09-08-2023 18:37-0400 Body temperature 98.3 [degF] [facility] Work Phone: [facility] 09-08-2023 18:37-0400 Body weight 116.3 kg Services [employer] [facility] Work Phone: [facility] 09-08-2023 18:37-0400 Diastolic blood pressure 89 mm[Hg] Services [employer] [facility] Work Phone: [facility] 09-08-2023 18:37-0400 Heart rate 97 /min Services [employer] [facility] Work Phone: [facility] 09-08-2023 18:37-0400 Respiratory rate 19 /min Services [facility] [employer] Work Phone: [facility] 09-08-2023 18:37-0400 SaO2% (BldA) [Mass fraction] 99 % Services [employer] Work Phone: [facility] 09-08-2023 18:37-0400 Systolic blood pressure 162 mm[Hg] Services [employer] Work Phone: [facility] 09-06-2023 21:10-0400 Body temperature 97.88 [degF] Pedro Pablo Chance [facility] 09-06-2023 21:10-0400 Diastolic blood pressure 82 mm[Hg] Pedro Pablo Chance [facility] 09-06-2023 21:10-0400 Heart rate 79 /min Pedro Pablo Chance [facility] 09-06-2023 21:10-0400 Respiratory rate 17 /min Pedro Pablo Chance [facility] 09-06-2023 21:10-0400 SaO2% (BldA) [Mass fraction] 98 % Pedro Pablo Chance [facility] 09-06-2023 21:10-0400 Systolic blood pressure 152 mm[Hg] Pedro Pablo Chance [facility] 09-02-2023 18:07-0400 Body temperature 97.88 [degF] Jorge Mcintosh [facility] 09-02-2023 18:07-0400 Diastolic blood pressure 79 mm[Hg] Jorge Mcintosh [facility] 09-02-2023 18:07-0400 Heart rate 94 /min Jorge Mcintosh [facility] 09-02-2023 18:07-0400 Respiratory rate 16 /min Jorge Mcintosh [facility] 09-02-2023 18:07-0400 SaO2% (BldA) [Mass fraction] 96 % Jorge Mcintosh [facility] 09-02-2023 18:07-0400 Systolic blood pressure 136 mm[Hg] Jorge Mcintosh [facility] 08-30-2023 19:17-0400 Diastolic blood pressure 92 mm[Hg] Nikhil Tubbs [facility] 08-30-2023 19:17-0400 Heart rate 94 /min Nikhil Arley [facility] 08-30-2023 19:17-0400 Mean blood pressure 112 mm[Hg] Nikhil Arley [facility] 08-30-2023 19:17-0400 Respiratory rate 17 /min Nikhil Arley [facility] 08-30-2023 19:17-0400 SaO2% (BldA) [Mass fraction] 97 % Nikhil Arley [facility] 08-30-2023 19:17-0400 Systolic blood pressure 151 mm[Hg] Nikhil Arley [facility] 08-30-2023 18:13-0400 Body temperature 98.24 [degF] Nikhil Tubbs [facility] 08-30-2023 18:13-0400 Diastolic blood pressure 100 mm[Hg] Nikhil Tubbs [facility] 08-30-2023 18:13-0400 Heart rate 92 /min Nikhil Tubbs [facility] 08-30-2023 18:13-0400 Respiratory rate 18 /min Nikhil Tubbs [facility] 08-30-2023 18:13-0400 SaO2% (BldA) [Mass fraction] 100 % Nikhil Tbubs [facility] 08-30-2023 18:13-0400 Systolic blood pressure 165 mm[Hg] Nikhil Tubbs [facility] 08-27-2023 13:20-0400 Body height 160 cm Chirag Reynoso 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 Work Phone: [facility] 08-27-2023 13:20-0400 Body mass index (BMI) [Ratio] 44.29 kg/m2 Chirag Reynoso 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 Work Phone: [facility] 08-27-2023 13:20-0400 Body weight 113.4 kg Chirag Reynoso 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 Work Phone: [facility] 08-27-2023 13:20-0400 Diastolic blood pressure 88 mm[Hg] Chirag Reynoso 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 Work Phone: [facility] 08-27-2023 13:20-0400 Heart rate 88 /min Chirag Reynoso 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 Work Phone: [facility] 08-27-2023 13:20-0400 Respiratory rate 18 /min Chirag Reynoso 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 Work Phone: [facility] 08-27-2023 13:20-0400 Systolic blood pressure 132 mm[Hg] Chirag GRAMAJO Work Phone: [facility] 08-21-2023 10:06-0400 Body temperature 98.8 [degF] Elke Adams MD Work Phone: [facility] 08-21-2023 10:06-0400 Diastolic blood pressure 62 mm[Hg] Elke Adams MD Work Phone: [facility] 08-21-2023 10:06-0400 Respiratory rate 16 /min Elke Adams MD Work Phone: [facility] 08-21-2023 10:06-0400 SaO2% (BldA) [Mass fraction] 93 % Elke Adams MD Work Phone: [facility] 08-21-2023 10:06-0400 Systolic blood pressure 116 mm[Hg] Elke Adams MD Work Phone: [facility] 08-21-2023 06:30-0400 Body height 160 cm Elke Adams MD Work Phone: [facility] 08-21-2023 06:30-0400 Body mass index (BMI) [Ratio] 44.32 kg/m2 Elke Adams MD Work Phone: [facility] 08-21-2023 06:30-0400 Body weight 113.5 kg Elke Adams MD Work Phone: [facility] 08-21-2023 06:30-0400 Heart rate 87 /min Elke Adams MD Work Phone: [facility] 08-16-2023 00:55-0400 Diastolic blood pressure 90 mm[Hg] [facility] 08-16-2023 00:55-0400 Heart rate 64 /min [facility] 08-16-2023 00:55-0400 Mean blood pressure 111 mm[Hg] [facility] 08-16-2023 00:55-0400 Respiratory rate 15 /min [facility] 08-16-2023 00:55-0400 SaO2% (BldA) [Mass fraction] 93 % [facility] 08-16-2023 00:55-0400 Systolic blood pressure 153 mm[Hg] [facility] 08-16-2023 00:07-0400 Diastolic blood pressure 88 mm[Hg] [facility] 08-16-2023 00:07-0400 Heart rate 73 /min [facility] 08-16-2023 00:07-0400 Mean blood pressure 105 mm[Hg] [facility] 08-16-2023 00:07-0400 Respiratory rate 17 /min [facility] 08-16-2023 00:07-0400 SaO2% (BldA) [Mass fraction] 93 % [facility] 08-16-2023 00:07-0400 Systolic blood pressure 138 mm[Hg] [facility] 08-15-2023 23:42-0400 Diastolic blood pressure 80 mm[Hg] [facility] 08-15-2023 23:42-0400 Heart rate 79 /min [facility] 08-15-2023 23:42-0400 Mean blood pressure 96 mm[Hg] [facility] 08-15-2023 23:42-0400 Respiratory rate 15 /min [facility] 08-15-2023 23:42-0400 SaO2% (BldA) [Mass fraction] 94 % [facility] 08-15-2023 23:42-0400 Systolic blood pressure 129 mm[Hg] [facility] 08-15-2023 22:22-0400 Body temperature 98.06 [degF] [facility]-15-[facility] 22:22-0400 Heart rate 88 /min [facility] 08-14-2023 15:16-0400 Diastolic blood pressure 58 mm[Hg] Domenic Sher [facility] 08-14-2023 15:16-0400 Heart rate 86 /min Domenic Sher [facility] 08-14-2023 15:16-0400 Mean blood pressure 88 mm[Hg] Domenic Sher [facility] 08-14-2023 15:16-0400 Respiratory rate 16 /min Domenic Sher [facility] 08-14-2023 15:16-0400 Systolic blood pressure 148 mm[Hg] Domenic Sher [facility] 08-12-2023 20:51-0400 Body temperature 98.24 [degF] Kaylinn Dokken [facility] 08-12-2023 20:51-0400 Diastolic blood pressure 83 mm[Hg] Kaylinn Dokken [facility] 08-12-2023 20:51-0400 Heart rate 83 /min Kaylinn Dokken [facility] 08-12-2023 20:51-0400 Respiratory rate 18 /min Kaylinn Dokken [facility] 08-12-2023 20:51-0400 SaO2% (BldA) [Mass fraction] 95 % Kaylinn Dokken [facility] 08-12-2023 20:51-0400 Systolic blood pressure 146 mm[Hg] Kaylinn Dokken [facility] 08-09-2023 23:20-0400 Body temperature 97.7 [degF] Keke Payne MD Work Phone: [facility] 08-09-2023 23:20-0400 Diastolic blood pressure 78 mm[Hg] Keke Payne MD Work Phone: [facility] 08-09-2023 23:20-0400 Heart rate 79 /min Keke Payne MD Work Phone: [facility] 08-09-2023 23:20-0400 Respiratory rate 18 /min Keke Payne MD Work Phone: [facility] 08-09-2023 23:20-0400 SaO2% (BldA) [Mass fraction] 95 % Keke Payne MD Work Phone: [facility] 08-09-2023 23:20-0400 Systolic blood pressure 151 mm[Hg] Keke Payne MD Work Phone: [facility] 08-09-2023 21:46-0400 Body mass index (BMI) [Ratio] 44.29 kg/m2 Keke Payne MD Work Phone: [facility] 08-09-2023 21:46-0400 Body weight 113.4 kg Keke Payne MD Work Phone: [facility] 08-05-2023 20:15-0400 Body temperature 97.88 [degF] Pedro Pablo Chance [facility] 08-05-2023 20:15-0400 Diastolic blood pressure 85 mm[Hg] Pedro Pablo Chance [facility] 08-05-2023 20:15-0400 Heart rate 98 /min Pedro Pablo Chance [facility] 08-05-2023 20:15-0400 Respiratory rate 16 /min Pedro Pablo Chance [facility] 08-05-2023 20:15-0400 SaO2% (BldA) [Mass fraction] 94 % Pedro Pablo Fletcher [facility] 08-05-2023 20:15-0400 Systolic blood pressure 150 mm[Hg] Pedro Pablo Fletcher [facility] 08-02-2023 11:52-0400 Body temperature 97.88 [degF] Nikhil Tubbs [facility] 08-02-2023 11:52-0400 Diastolic blood pressure 68 mm[Hg] Nikhil Tubbs [facility] 08-02-2023 11:52-0400 Heart rate 86 /min Nikhil Tubbs [facility] 08-02-2023 11:52-0400 Respiratory rate 20 /min Nikhil Tubbs [facility] 08-02-2023 11:52-0400 SaO2% (BldA) [Mass fraction] 93 % Nikhil Tubbs [facility] 08-02-2023 11:52-0400 Systolic blood pressure 161 mm[Hg] Nikhil Tubbs [facility] 07-31-2023 15:29-0400 Diastolic blood pressure 86 mm[Hg] [facility] 07-31-2023 15:29-0400 Heart rate 75 /min [facility] 07-31-2023 15:29-0400 Mean blood pressure 103 mm[Hg] [facility] 07-31-2023 15:29-0400 Respiratory rate 16 /min [facility] 07-31-2023 15:29-0400 SaO2% (BldA) [Mass fraction] 98 % [facility] 07-31-2023 15:29-0400 Systolic blood pressure 138 mm[Hg] [facility] 07-31-2023 14:22-0400 Body temperature 98.06 [degF] [facility] 07-31-2023 14:22-0400 Diastolic blood pressure 87 mm[Hg] [facility] 07-31-2023 14:22-0400 Heart rate 88 /min [facility] 07-31-2023 14:22-0400 Mean blood pressure 101 mm[Hg] [facility] 07-31-2023 14:22-0400 Respiratory rate 18 /min [facility] 07-31-2023 14:22-0400 SaO2% (BldA) [Mass fraction] 96 % [facility] 07-31-2023 14:22-0400 Systolic blood pressure 130 mm[Hg] [facility] 07-26-2023 11:06-0400 Body temperature 98.24 [degF] Jorge Mcintosh [facility] 07-26-2023 11:06-0400 Diastolic blood pressure 66 mm[Hg] Jorge Mcintosh [facility] 07-26-2023 11:06-0400 Heart rate 83 /min Jorge Mcintosh [facility] 07-26-2023 11:06-0400 Respiratory rate 19 /min Jorge Mcintosh [facility] 07-26-2023 11:06-0400 SaO2% (BldA) [Mass fraction] 97 % Jorge Mcintosh [facility] 07-26-2023 11:06-0400 Systolic blood pressure 119 mm[Hg] Jorge Mcintosh [facility] 07-17-2023 09:43-0400 Diastolic blood pressure 90 mm[Hg] Cheyanne Rosas [facility] 07-17-2023 09:43-0400 Mean blood pressure 107 mm[Hg] Cheyanne Rosas [facility] 07-17-2023 09:43-0400 Systolic blood pressure 140 mm[Hg] Cheyanne Rosas [facility] 07-17-2023 07:48-0400 Blood Pressure Location Cheyanne Rosas [facility] 07-17-2023 07:48-0400 Body temperature 97.7 [degF] Cheyanne Rosas [facility] 07-17-2023 07:48-0400 Diastolic blood pressure 78 mm[Hg] Cheyanne Rosas [facility] 07-17-2023 07:48-0400 Heart rate 91 /min Cheyanne Rosas [facility] 07-17-2023 07:48-0400 Respiratory rate 18 /min Cheyanne Rosas [facility] 07-17-2023 07:48-0400 SaO2% (BldA) [Mass fraction] 97 % Cheyanne Rosas [facility] 07-17-2023 07:48-0400 Systolic blood pressure 144 mm[Hg] Cheyanne Rosas [facility] 07-15-2023 13:42-0400 Diastolic blood pressure 86 mm[Hg] Dory Shepherd [facility] 07-15-2023 13:42-0400 Heart rate 76 /min Dory Shepherd [facility] 07-15-2023 13:42-0400 Mean blood pressure 103 mm[Hg] Dory Shepherd [facility] 07-15-2023 13:42-0400 Respiratory rate 15 /min Dory Shepherd [facility] 07-15-2023 13:42-0400 Systolic blood pressure 138 mm[Hg] Dory Shepherd [facility] 07-14-2023 11:37-0400 Body temperature 97.52 [degF] Nikhil Tubbs [facility] 07-14-2023 11:37-0400 Diastolic blood pressure 80 mm[Hg] Nikhil Tubbs [facility] 07-14-2023 11:37-0400 Heart rate 98 /min Nikhiljaiden Tubbs [facility] 07-14-2023 11:37-0400 Respiratory rate 18 /min Nikhil Tubbs [facility] 07-14-2023 11:37-0400 SaO2% (BldA) [Mass fraction] 99 % Nikhil Tubbs [facility] 07-14-2023 11:37-0400 Systolic blood pressure 124 mm[Hg] Nikhil Tubbs [facility] 07-11-2023 09:23-0400 Body temperature 98.24 [degF] [facility] 07-11-2023 09:23-0400 Diastolic blood pressure 82 mm[Hg] [facility] 07-11-2023 09:23-0400 Heart rate 92 /min [facility] 07-11-2023 09:23-0400 Respiratory rate 18 /min [facility] 07-11-2023 09:23-0400 SaO2% (BldA) [Mass fraction] 99 % [facility] 07-11-2023 09:23-0400 Systolic blood pressure 151 mm[Hg] [facility] 07-06-2023 18:22-0400 Body temperature 97.88 [degF] [facility] 07-06-2023 18:22-0400 Diastolic blood pressure 99 mm[Hg] [facility] 07-06-2023 18:22-0400 Heart rate 90 /min [facility] 07-06-2023 18:22-0400 Respiratory rate 18 /min [facility] 07-06-2023 18:22-0400 SaO2% (BldA) [Mass fraction] 97 % [facility] 07-06-2023 18:22-0400 Systolic blood pressure 159 mm[Hg] [facility] 07-04-2023 10:35-0400 Body height 160.02 cm Services [employer] [facility] Work Phone: [facility] 07-04-2023 [...] 173 mm[Hg] [facility] Work Phone: [facility] 06-29-2023 13:37-0400 Body temperature 98.24 [degF] Nikhil Arley [facility] 06-29-2023 13:37-0400 Diastolic blood pressure 89 mm[Hg] Nikhil Arley [facility] 06-29-2023 13:37-0400 Heart rate 84 /min Nikhil Arley [facility] 06-29-2023 13:37-0400 Respiratory rate 16 /min Nikhil Arley [facility] 06-29-2023 13:37-0400 SaO2% (BldA) [Mass fraction] 97 % Nikhil Arley [facility] 06-29-2023 13:37-0400 Systolic blood pressure 153 mm[Hg] Nikhil Arley [facility] 06-27-2023 11:52-0400 Body temperature 97.7 [degF] Nikhil Arley [facility] 06-27-2023 11:52-0400 Diastolic blood pressure 82 mm[Hg] Nikhil Arley [facility] 06-27-2023 11:52-0400 Heart rate 87 /min Nikhil Arley [facility] 06-27-2023 11:52-0400 Respiratory rate 18 /min Nikhil Arley [facility] 06-27-2023 11:52-0400 SaO2% (BldA) [Mass fraction] 96 % Nikhil Arley [facility] 06-27-2023 11:52-0400 Systolic blood pressure 146 mm[Hg] Nikhil Arley [facility] 06-26-2023 16:39-0400 Body height 160.02 cm TREASURY ANALYSTRadha Ferrell Work Phone: [facility] 06-26-2023 16:39-0400 Body temperature 97.6 [degF] ELIZABETH Ferrell Work Phone: [facility] 06-26-2023 16:39-0400 Body weight 117 kg ELIZABETH Ferrell Work Phone: [facility] 06-26-2023 16:39-0400 Diastolic blood pressure 72 mm[Hg] ELIZABETH Ferrell Work Phone: [facility] 06-26-2023 16:39-0400 Heart rate 92 /min ELIZABETH Ferrell Work Phone: [facility] 06-26-2023 16:39-0400 Respiratory rate 21 /min ELIZABETH Ferrell Work Phone: [facility] 06-26-2023 16:39-0400 SaO2% (BldA) [Mass fraction] 97 % ELIZABETH Ferrell Work Phone: [facility] 06-26-2023 16:39-0400 Systolic blood pressure 139 mm[Hg] ELIZABETH Ferrell Work Phone: [facility] 06-24-2023 11:30-0400 Diastolic blood pressure 78 mm[Hg] [facility] 06-24-2023 11:30-0400 Heart rate 78 /min [facility] 06-24-2023 11:30-0400 Mean blood pressure 87 mm[Hg] [facility] 06-24-2023 11:30-0400 Respiratory rate 18 /min [facility] 06-24-2023 11:30-0400 SaO2% (BldA) [Mass fraction] 97 % [facility] 06-24-2023 11:30-0400 Systolic blood pressure 106 mm[Hg] [facility] 06-24-2023 10:30-0400 Diastolic blood pressure 75 mm[Hg] [facility] 06-24-2023 10:30-0400 Heart rate 80 /min [facility] 06-24-2023 10:30-0400 Mean blood pressure 98 mm[Hg] [facility] 06-24-2023 10:30-0400 Respiratory rate 18 /min [facility] 06-24-2023 10:30-0400 SaO2% (BldA) [Mass fraction] 97 % [facility] 06-24-2023 10:30-0400 Systolic blood pressure 143 mm[Hg] [facility] 06-24-2023 09:45-0400 Body temperature 97.7 [degF] [facility] 06-24-2023 09:45-0400 Diastolic blood pressure 84 mm[Hg] [facility] 06-24-2023 09:45-0400 Heart rate 103 /min [facility] 06-24-2023 09:45-0400 Respiratory rate 17 /min [facility] 06-24-2023 09:45-0400 SaO2% (BldA) [Mass fraction] 97 % [facility] 06-24-2023 09:45-0400 Systolic blood pressure 137 mm[Hg] [facility] 06-22-2023 19:05-0400 Diastolic blood pressure 95 mm[Hg] Nikhil Tubbs [facility] 06-22-2023 19:05-0400 Heart rate 94 /min Nikhil Tubbs [facility] 06-22-2023 19:05-0400 Mean blood pressure 108 mm[Hg] Nikhil Tubbs [facility] 06-22-2023 19:05-0400 SaO2% (BldA) [Mass fraction] 94 % Nikhil Arley [facility] 06-22-2023 19:05-0400 Systolic blood pressure 135 mm[Hg] Nikhil Arley [facility] 06-22-2023 18:02-0400 Diastolic blood pressure 76 mm[Hg] Nikhil Arley [facility] 06-22-2023 18:02-0400 Heart rate 95 /min Nikhil Arley [facility] 06-22-2023 18:02-0400 Mean blood pressure 93 mm[Hg] Nikhil Arley [facility] 06-22-2023 18:02-0400 Systolic blood pressure 126 mm[Hg] Nikhil Arley [facility] 06-22-2023 17:00-0400 Blood Pressure Location Nikhil Arley [facility] 06-22-2023 17:00-0400 Diastolic blood pressure 80 mm[Hg] Nikhil Arley [facility] 06-22-2023 17:00-0400 Heart rate 93 /min Nikhil Arley [facility] 06-22-2023 17:00-0400 Mean blood pressure 97 mm[Hg] Nikhil Arley [facility] 06-22-2023 17:00-0400 Respiratory rate 18 /min Nikhil Arley [facility] 06-22-2023 17:00-0400 SaO2% (BldA) [Mass fraction] 96 % Nikhil Arley [facility] 06-22-2023 17:00-0400 Systolic blood pressure 130 mm[Hg] Nikhil Arley [facility] 06-22-2023 16:00-0400 SaO2% (BldA) [Mass fraction] 98 % Nikhil Tubbs [facility] 06-22-2023 15:20-0400 Respiratory rate 17 /min Nikhil Tubbs [facility] 06-22-2023 14:21-0400 Body temperature 98.24 [degF] Nikhil Tubbs [facility] 06-22-2023 14:21-0400 Heart rate 109 /min Nikhil Tubbs [facility] 06-22-2023 14:21-0400 Respiratory rate 16 /min Nikhil Tubbs [facility] 06-15-2023 18:05-0400 Body temperature 97.7 [degF] [facility] 06-15-2023 18:05-0400 Diastolic blood pressure 99 mm[Hg] [facility] 06-15-2023 18:05-0400 Heart rate 79 /min [facility] 06-15-2023 18:05-0400 Respiratory rate 18 /min [facility] 06-15-2023 18:05-0400 SaO2% (BldA) [Mass fraction] 99 % [facility] 06-15-2023 18:05-0400 Systolic blood pressure 125 mm[Hg] [facility] 06-15-2023 16:03-0400 Diastolic blood pressure 80 mm[Hg] Slime Oberhauser DO Work Phone: [facility] 06-15-2023 16:03-0400 Heart rate 84 /min Slime Oberhauser DO Work Phone: [facility] 06-15-2023 16:03-0400 Respiratory rate 16 /min Slime Oberhauser DO Work Phone: [facility] 06-15-2023 16:03-0400 SaO2% (BldA) [Mass fraction] 98 % Slime Oberhauser DO Work Phone: [facility] 06-15-2023 16:03-0400 Systolic blood pressure 128 mm[Hg] Slime Oberhauser DO Work Phone: [facility] 06-15-2023 14:37-0400 Body height 160 cm Slime Oberhauser DO Work Phone: [facility] 06-15-2023 14:37-0400 Body mass index (BMI) [Ratio] 44.29 kg/m2 Slime Oberhauser DO Work Phone: [facility] 06-15-2023 14:37-0400 Body temperature 97 [degF] Slime Oberhauser DO Work Phone: [facility] 06-15-2023 14:37-0400 Body weight 113.4 kg Slime Oberhauser DO Work Phone: [facility] 06-11-2023 18:54-0400 Body temperature 98.24 [degF] Kaylinn Dokken [facility] 06-11-2023 18:54-0400 Diastolic blood pressure 80 mm[Hg] Kaylinn Dokken [facility] 06-11-2023 18:54-0400 Heart rate 92 /min Kaylinn Dokken [facility] 06-11-2023 18:54-0400 Respiratory rate 16 /min Kaylinn Dokken [facility] 06-11-2023 18:54-0400 SaO2% (BldA) [Mass fraction] 98 % Kaylinn Dokken [facility] 06-11-2023 18:54-0400 Systolic blood pressure 135 mm[Hg] Elisa Sánchez [facility] 06-08-2023 18:35-0400 Diastolic blood pressure 86 mm[Hg] Allysno Nicole DO Work Phone: [employer] 06-08-2023 18:35-0400 Heart rate 86 /min Allyson Nicole DO Work Phone: [employer] 06-08-2023 18:35-0400 Respiratory rate 16 /min Allysonmannie Nicole DO Work Phone: [employer] 06-08-2023 18:35-0400 SaO2% (BldA) [Mass fraction] 98 % Allyson Nicole DO Work Phone: [employer] 06-08-2023 18:35-0400 Systolic blood pressure 135 mm[Hg] Allyson Nicole DO Work Phone: [employer] 06-08-2023 17:41-0400 Body height 160 cm Allyson Nicole DO Work Phone: [employer] 06-08-2023 17:41-0400 Body mass index (BMI) [Ratio] 44.29 kg/m2 Allyson Nicole DO Work Phone: [employer] 06-08-2023 17:41-0400 Body temperature 97.81 [degF] Allyson Nicole DO Work Phone: [employer] 06-08-2023 17:41-0400 Body weight 113.4 kg Allyson Nicole DO Work Phone: [employer] 06-05-2023 08:13-0400 Body height 160 cm Elke Adams MD Work Phone: [facility] 06-05-2023 08:13-0400 Body mass index (BMI) [Ratio] 44.29 kg/m2 Elke Adams MD Work Phone: [facility] 06-05-2023 08:13-0400 Body weight 113.4 kg Elke Adams MD Work Phone: [facility] 06-05-2023 08:13-0400 Diastolic blood pressure 88 mm[Hg] Elke Adams MD Work Phone: [facility] 06-05-2023 08:13-0400 Heart rate 85 /min Elke Adams MD Work Phone: [facility] 06-05-2023 08:13-0400 Respiratory rate 20 /min Elke Adams MD Work Phone: [facility] 06-05-2023 08:13-0400 Systolic blood pressure 133 mm[Hg] Elke Adams MD Work Phone: [facility] 06-03-2023 19:07-0400 Body temperature 98.06 [degF] Jorge Mcintosh [facility] 06-03-2023 19:07-0400 Diastolic blood pressure 88 mm[Hg] Jorge Mcintosh [facility] 06-03-2023 19:07-0400 Heart rate 71 /min Jorge Mcintosh [facility] 06-03-2023 19:07-0400 Respiratory rate 16 /min Jorge Mcintosh [facility] 06-03-2023 19:07-0400 SaO2% (BldA) [Mass fraction] 96 % Jorge Mcintosh [facility] 06-03-2023 19:07-0400 Systolic blood pressure 132 mm[Hg] Jorge Mcintosh [facility] 06-01-2023 16:07-0500 Diastolic blood pressure 81 mm[Hg] ELIZABETH Ferrell Work Phone: [facility] 06-01-2023 16:07-0500 Heart rate 76 /min ELIZABETH Ferrell Work Phone: [facility] 06-01-2023 16:07-0500 Respiratory rate 18 /min TREASURY ANALYSTRadha Ferrell Work Phone: [facility] 06-01-2023 16:07-0500 SaO2% (BldA) [Mass fraction] 96 % TREASURY ANALYSTRadha Ferrell Work Phone: [facility] 06-01-2023 16:07-0500 Systolic blood pressure 141 mm[Hg] TREASURY ANALYSTRadha Ferrell Work Phone: [facility] 06-01-2023 11:49-0500 Body height 160.02 cm TREASURY ANALYSTRadha Ferrell Work Phone: [facility] 06-01-2023 11:49-0500 Body temperature 97.9 [degF] ELIZABETH Ferrell Work Phone: [facility] 06-01-2023 11:49-0500 Body weight 97.52 kg TREASURY ANALYSTRadha Ferrell Work Phone: [facility] 05-31-2023 18:12-0500 Diastolic blood pressure 104 mm[Hg] Jorge Mcintosh [facility] 05-31-2023 18:12-0500 Heart rate 71 /min Jorge Mcintosh [facility] 05-31-2023 18:12-0500 Mean blood pressure 117 mm[Hg] Jorge Mcintosh [facility] 05-31-2023 18:12-0500 Respiratory rate 18 /min Jorge Mcintosh [facility] 05-31-2023 18:12-0500 SaO2% (BldA) [Mass fraction] 97 % Jorge Mcintosh [facility] 05-31-2023 18:12-0500 Systolic blood pressure 143 mm[Hg] Jorge Rodrigueze [facility] 05-31-2023 17:01-0500 Diastolic blood pressure 70 mm[Hg] Jorge Mcintosh [facility] 05-31-2023 17:01-0500 Heart rate 85 /min Jorge Mcintosh [facility] 05-31-2023 17:01-0500 Mean blood pressure 91 mm[Hg] Jorge Mcintosh [facility] 05-31-2023 17:01-0500 Respiratory rate 18 /min Jorge Mcintosh [facility] 05-31-2023 17:01-0500 SaO2% (BldA) [Mass fraction] 96 % Jorge Mcintosh [facility] 05-31-2023 17:01-0500 Systolic blood pressure 133 mm[Hg] Jorge Mcintosh [facility] 05-31-2023 16:41-0500 Body temperature 98.6 [degF] Jorge Mcintosh [facility] 05-31-2023 16:41-0500 Diastolic blood pressure 91 mm[Hg] Jorge Mcintosh [facility] 05-31-2023 16:41-0500 Heart rate 88 /min Jorge Mcintosh [facility] 05-31-2023 16:41-0500 Respiratory rate 18 /min Jorge Mcintosh [facility] 05-31-2023 16:41-0500 SaO2% (BldA) [Mass fraction] 96 % Jorge Mcintosh [facility] 05-31-2023 16:41-0500 Systolic blood pressure 155 mm[Hg] Jorge Mcintsoh [facility] 05-26-2023 19:35-0500 Body temperature 97.7 [degF] Pedro Pablo Chance [facility] 05-26-2023 19:35-0500 Diastolic blood pressure 81 mm[Hg] Pedro Pablo Chance [facility] 05-26-2023 19:35-0500 Heart rate 94 /min Pedro Pablo Chance [facility] 05-26-2023 19:35-0500 Respiratory rate 16 /min Pedro Pablo Chance [facility] 05-26-2023 19:35-0500 SaO2% (BldA) [Mass fraction] 98 % Pedro Pablo Chance [facility] 05-26-2023 19:35-0500 Systolic blood pressure 147 mm[Hg] Pedro Pablo Chance [facility] 05-25-2023 14:00-0500 Body height 160.02 cm TREASURY ANALYST Joshua Mariaelena Work Phone: [facility] 05-25-2023 14:00-0500 Body temperature 97.7 [degF] TREASURY ANALYST Joshua Mariaelena Work Phone: [facility] 05-25-2023 14:00-0500 Body weight 116 kg TREASURY ANALYST Joshua Mariaelena Work Phone: [facility] 05-25-2023 14:00-0500 Diastolic blood pressure 86 mm[Hg] TREASURY ANALYST Joshua Mariaelena Work Phone: [facility] 05-25-2023 14:00-0500 Heart rate 89 /min TREASURY ANALYST Joshua Mariaelena Work Phone: [facility] 05-25-2023 14:00-0500 Respiratory rate 16 /min TREASURY ANALYST Joshua Mariaelena Work Phone: [facility] 05-25-2023 14:00-0500 SaO2% (BldA) [Mass fraction] 96 % TREASURY ANALYST Joshua Mariaelena Work Phone: [facility] 05-25-2023 14:00-0500 Systolic blood pressure 134 mm[Hg] ELIZABETH Ferrell Work Phone: [facility] 05-24-2023 19:20-0500 Body temperature 97.7 [degF] Nikhil Arley [facility] 05-24-2023 19:20-0500 Diastolic blood pressure 95 mm[Hg] Nikhil Arley [facility] 05-24-2023 19:20-0500 Heart rate 98 /min Nikhiljaiden Tubbs [facility] 05-24-2023 19:20-0500 Respiratory rate 16 /min Nikhiljaiden Tubbs [facility] 05-24-2023 19:20-0500 SaO2% (BldA) [Mass fraction] 96 % Nikhil Arley [facility] 05-24-2023 19:20-0500 Systolic blood pressure 151 mm[Hg] Nikhiljaiden Tubbs [facility] 05-19-2023 12:01-0500 Body height 160.02 cm PHYSICIAN NO [facility] 05-19-2023 12:01-0500 Body temperature 98.1 [degF] PHYSICIAN NO [facility] 05-19-2023 12:01-0500 Body weight 115 kg PHYSICIAN NO [facility] 05-19-2023 12:01-0500 Diastolic blood pressure 80 mm[Hg] PHYSICIAN NO [facility] 05-19-2023 12:01-0500 Heart rate 97 /min PHYSICIAN NO [facility] 05-19-2023 12:01-0500 Respiratory rate 18 /min PHYSICIAN NO [facility] 05-19-2023 12:01-0500 SaO2% (BldA) [Mass fraction] 98 % PHYSICIAN NO [facility] 05-19-2023 12:01-0500 Systolic blood pressure 165 mm[Hg] PHYSICIAN YENNI BLAIR [facility] 05-16-2023 16:20-0500 Body temperature 98.06 [degF] Nikhil Tubbs [facility] 05-16-2023 16:20-0500 Diastolic blood pressure 93 mm[Hg] Nikihl Tubbs [facility] 05-16-2023 16:20-0500 Heart rate 86 /min Nikhil Tubbs [facility] 05-16-2023 16:20-0500 Respiratory rate 16 /min Nikhil Tubbs [facility] 05-16-2023 16:20-0500 SaO2% (BldA) [Mass fraction] 100 % Nikhil Tubbs [facility] 05-16-2023 16:20-0500 Systolic blood pressure 162 mm[Hg] Nikhil Tubbs [facility] 05-14-2023 10:24-0500 Body temperature 97.52 [degF] Jorge Rodrigueze [facility] 05-14-2023 10:24-0500 Diastolic blood pressure 86 mm[Hg] Jorge Mcintosh [facility] 05-14-2023 10:24-0500 Heart rate 85 /min Jorge Arnaldo [facility] 05-14-2023 10:24-0500 Respiratory rate 18 /min Jorge Mcintosh [facility] 05-14-2023 10:24-0500 SaO2% (BldA) [Mass fraction] 96 % Jorge Mcintosh [facility] 05-14-2023 10:24-0500 Systolic blood pressure 143 mm[Hg] Jorge Mcintosh [facility] 05-12-2023 10:19-0500 Body temperature 97.88 [degF] Nikhil Tubbs [facility] 05-12-2023 10:19-0500 Diastolic blood pressure 107 mm[Hg] Nikhil Tubbs [facility] 05-12-2023 10:19-0500 Heart rate 82 /min Nikhil Tubbs [facility] 05-12-2023 10:19-0500 Respiratory rate 18 /min Nikhil Tubbs [facility] 05-12-2023 10:19-0500 SaO2% (BldA) [Mass fraction] 96 % Nikhil Tubbs [facility] 05-12-2023 10:19-0500 Systolic blood pressure 156 mm[Hg] Nikhil Tubbs [facility] 05-11-2023 16:23-0500 Body temperature 97.88 [degF] Jorge Mcintosh [facility] 05-11-2023 16:23-0500 Diastolic blood pressure 102 mm[Hg] Jorge Rodrigueze [facility] 05-11-2023 16:23-0500 Heart rate 89 /min Jorge Arnaldo [facility] 05-11-2023 16:23-0500 Respiratory rate 16 /min Jorge Mcintosh [facility] 05-11-2023 16:23-0500 SaO2% (BldA) [Mass fraction] 97 % Jorge Rodrigueze [facility] 05-11-2023 16:23-0500 Systolic blood pressure 163 mm[Hg] Jorge Arnaldo [facility] 05-08-2023 12:41-0500 Diastolic blood pressure 62 mm[Hg] [facility] 05-08-2023 12:41-0500 Heart rate 78 /min [facility] 05-08-2023 12:41-0500 Mean blood pressure 80 mm[Hg] [facility] 05-08-2023 12:41-0500 Respiratory rate 16 /min [facility] 05-08-2023 12:41-0500 SaO2% (BldA) [Mass fraction] 95 % [facility] 05-08-2023 12:41-0500 Systolic blood pressure 115 mm[Hg] [facility] 05-08-2023 12:00-0500 Diastolic blood pressure 74 mm[Hg] [facility] 05-08-2023 12:00-0500 Mean blood pressure 95 mm[Hg] [facility] 05-08-2023 12:00-0500 SaO2% (BldA) [Mass fraction] 96 % [facility] 05-08-2023 12:00-0500 Systolic blood pressure 138 mm[Hg] [facility] 05-08-2023 11:27-0500 Body temperature 98.06 [degF] [facility] 05-08-2023 11:27-0500 Diastolic blood pressure 93 mm[Hg] [facility] 05-08-2023 11:27-0500 Heart rate 97 /min [facility] 05-08-2023 11:27-0500 Respiratory rate 18 /min [facility] 05-08-2023 11:27-0500 SaO2% (BldA) [Mass fraction] 95 % [facility] 05-08-2023 11:27-0500 Systolic blood pressure 166 mm[Hg] [facility] 05-05-2023 11:58-0500 Body height 160.02 cm PHYSICIAN NO [facility] 05-05-2023 11:58-0500 Body temperature 97.4 [degF] PHYSICIAN NO [facility] 05-05-2023 11:58-0500 Body weight 115.3 kg PHYSICIAN NO [facility] 05-05-2023 11:58-0500 Diastolic blood pressure 89 mm[Hg] PHYSICIAN NO [facility] 05-05-2023 11:58-0500 Heart rate 91 /min PHYSICIAN NO [facility] 05-05-2023 11:58-0500 Respiratory rate 20 /min PHYSICIAN NO [facility] 05-05-2023 11:58-0500 SaO2% (BldA) [Mass fraction] 98 % PHYSICIAN NO [facility] 05-05-2023 11:58-0500 Systolic blood pressure 152 mm[Hg] PHYSICIAN NO [facility] 04-28-2023 00:38-0500 Diastolic blood pressure 89 mm[Hg] Sal Juarez MD Work Phone: [facility] 04-28-2023 00:38-0500 Heart rate 76 /min Sal Juarez MD Work Phone: [facility] 04-28-2023 00:38-0500 Respiratory rate 16 /min Sal Juarez MD Work Phone: [facility] 04-28-2023 00:38-0500 SaO2% (BldA) [Mass fraction] 99 % Sal Juarez MD Work Phone: [facility] 04-28-2023 00:38-0500 Systolic blood pressure 160 mm[Hg] Sal Juarez MD Work Phone: [facility] 04-27-2023 22:40-0500 Body temperature 97.81 [degF] Sal Juarez MD Work Phone: [facility] 04-26-2023 09:29-0500 Body temperature 97.52 [degF] Balbina Bryant [facility] 04-26-2023 09:29-0500 Diastolic blood pressure 80 mm[Hg] [facility] 04-26-2023 09:29-0500 Heart rate 87 /min [facility] 04-26-2023 09:29-0500 Respiratory rate 20 /min [facility] 04-26-2023 09:29-0500 SaO2% (BldA) [Mass fraction] 96 % [facility] 04-26-2023 09:29-0500 Systolic blood pressure 166 mm[Hg] [facility] 04-22-2023 20:11-0500 Body temperature 98.06 [degF] Pedro Pablo Chance [facility] 04-22-2023 20:11-0500 Diastolic blood pressure 82 mm[Hg] Pedro Pablo Chance [facility] 04-22-2023 20:11-0500 Heart rate 93 /min Pedro Pablo Chance [facility] 04-22-2023 20:11-0500 Respiratory rate 18 /min Pedro Pablo Chance [facility] 04-22-2023 20:11-0500 SaO2% (BldA) [Mass fraction] 96 % Pedro Pablo Chance [facility] 04-22-2023 20:11-0500 Systolic blood pressure 166 mm[Hg] Pedro Pablo Chance [facility] 04-12-2023 14:11-0500 Body height 160.02 cm [facility] 04-12-2023 14:11-0500 Body temperature 97.9 [degF] [facility] 04-12-2023 14:11-0500 Body weight 114.5 kg [facility] 04-12-2023 14:11-0500 Diastolic blood pressure 98 mm[Hg] [facility] 04-12-2023 14:11-0500 Heart rate 99 /min [facility] 04-12-2023 14:11-0500 Respiratory rate 18 /min [facility] 04-12-2023 14:11-0500 SaO2% (BldA) [Mass fraction] 98 % [facility] 04-12-2023 14:11-0500 Systolic blood pressure 193 mm[Hg] [facility] 04-11-2023 18:31-0500 Body temperature 97.34 [degF] [facility] 04-11-2023 18:31-0500 Diastolic blood pressure 105 mm[Hg] [facility] 04-11-2023 18:31-0500 Heart rate 87 /min [facility] 04-11-2023 18:31-0500 Respiratory rate 20 /min [facility] 04-11-2023 18:31-0500 SaO2% (BldA) [Mass fraction] 96 % [facility] 04-11-2023 18:31-0500 Systolic blood pressure 160 mm[Hg] [facility] 04-11-2023 01:00-0500 Hourly Rounding Pedro Pablo Chance [facility] 04-11-2023 01:00-0500 Promise to Return Pedro Pablo Chance [facility] 04-11-2023 00:00-0500 Hourly Rounding Pedro Pablo Chance [facility] 04-11-2023 00:00-0500 Promise to Return Pedro Pablo Chance [facility] 04-10-2023 23:00-0500 Hourly Rounding Pedro Pablo Chance [facility] 04-10-2023 23:00-0500 Promise to Return Pedro Pablo Chance [facility] 04-10-2023 22:05-0500 Body temperature 97.34 [degF] Pedro Pablo Chance [facility] 04-10-2023 22:05-0500 Diastolic blood pressure 95 mm[Hg] Pedro Pablo Chance [facility] 04-10-2023 22:05-0500 Heart rate 80 /min Pedro Pablo Chance [facility] 04-10-2023 22:05-0500 Respiratory rate 16 /min Pedro Pablo Chance [facility] 04-10-2023 22:05-0500 SaO2% (BldA) [Mass fraction] 95 % Pedro Pablo Chance [facility] 04-10-2023 22:05-0500 Systolic blood pressure 156 mm[Hg] Pedro Pablo Chance [facility] 04-05-2023 15:30-0500 Diastolic blood pressure 82 mm[Hg] Nikhil Arley [facility] 04-05-2023 15:30-0500 Heart rate 76 /min Nikhil Arley [facility] 04-05-2023 15:30-0500 Mean blood pressure 100 mm[Hg] Nikhil Arley [facility] 04-05-2023 15:30-0500 Respiratory rate 17 /min Nikhil Arley [facility] 04-05-2023 15:30-0500 SaO2% (BldA) [Mass fraction] 97 % Nikhil Arley [facility] 04-05-2023 15:30-0500 Systolic blood pressure 137 mm[Hg] Nikhil Arley [facility] 04-05-2023 15:00-0500 Diastolic blood pressure 85 mm[Hg] Nikhil Arley [facility] 04-05-2023 15:00-0500 Heart rate 84 /min Nikhil Tubbs [facility] 04-05-2023 15:00-0500 Mean blood pressure 108 mm[Hg] Nikhil Tubbs [facility] 04-05-2023 15:00-0500 Systolic blood pressure 153 mm[Hg] Nikhil Arley [facility] 04-05-2023 14:30-0500 Diastolic blood pressure 66 mm[Hg] Nikhil Arley [facility] 04-05-2023 14:30-0500 Heart rate 81 /min Nikhil Arley [facility] 04-05-2023 14:30-0500 Mean blood pressure 88 mm[Hg] Nikhil Arley [facility] 04-05-2023 14:30-0500 Respiratory rate 18 /min Nikhil Tubbs [facility] 04-05-2023 14:30-0500 SaO2% (BldA) [Mass fraction] 96 % Nikhil Arley [facility] 04-05-2023 14:30-0500 Systolic blood pressure 131 mm[Hg] Nikhil Tubbs [facility] 04-05-2023 12:34-0500 Body temperature 98.06 [degF] Nikhiljaiden Tubbs [facility] 04-05-2023 12:34-0500 Heart rate 92 /min Nikhiljaiden Tubbs [facility] 04-02-2023 21:43-0500 Body temperature 97.34 [degF] Elisa Sánchez [facility] 04-02-2023 21:43-0500 Diastolic blood pressure 94 mm[Hg] Elisa Sánchez [facility] 04-02-2023 21:43-0500 Heart rate 96 /min Elisa Sánchez [facility] 04-02-2023 21:43-0500 Respiratory rate 20 /min Elisa Sánchez [facility] 04-02-2023 21:43-0500 SaO2% (BldA) [Mass fraction] 96 % Elisa Sánchez [facility] 04-02-2023 21:43-0500 Systolic blood pressure 145 mm[Hg] Elisa Sánchez [facility] 04-01-2023 08:21-0500 Body height 160 cm Chidi Joseph MD Work Phone: [facility] 04-01-2023 08:21-0500 Body mass index (BMI) [Ratio] 43.22 kg/m2 Chidi Joseph MD Work Phone: [facility] 04-01-2023 08:21-0500 Body temperature 97.5 [degF] Chidi Joseph MD Work Phone: [facility] 04-01-2023 08:21-0500 Body weight 110.68 kg Chidi Joseph MD Work Phone: [facility] 04-01-2023 08:21-0500 Diastolic blood pressure 87 mm[Hg] Chidi Joseph MD Work Phone: [facility] 04-01-2023 08:21-0500 Heart rate 92 /min Chidi Joseph MD Work Phone: [facility] 04-01-2023 08:21-0500 Respiratory rate 16 /min Chidi Joseph MD Work Phone: [facility] 04-01-2023 08:21-0500 Systolic blood pressure 138 mm[Hg] Chidi Joseph MD Work Phone: [facility] 03-29-2023 10:06-0500 Body height 160.02 cm ELIZABETH Veliz Work Phone: [facility] 03-29-2023 10:06-0500 Body temperature 97.5 [degF] TREASURY ANALYSTRadha Veliz Work Phone: [facility] 03-29-2023 10:06-0500 Body weight 111 kg TREASURY ANALYSTRadha Veliz Work Phone: [facility] 03-29-2023 10:06-0500 Diastolic blood pressure 86 mm[Hg] ELIZABETH Veliz Work Phone: [facility] 03-29-2023 10:06-0500 Heart rate 85 /min ELIZABETH Veliz Work Phone: [facility] 03-29-2023 10:06-0500 Respiratory rate 20 /min ELIZABETH Veliz Work Phone: [facility] 03-29-2023 10:06-0500 SaO2% (BldA) [Mass fraction] 96 % ELIZABETH Veliz Work Phone: [facility] 03-29-2023 10:06-0500 Systolic blood pressure 133 mm[Hg] ELIZABETH Veliz Work Phone: [facility] 03-26-2023 12:43-0500 Diastolic blood pressure 80 mm[Hg] Jorge Mcintosh [facility] 03-26-2023 12:43-0500 Heart rate 79 /min Jorge Mcintosh [facility] 03-26-2023 12:43-0500 Respiratory rate 16 /min Jorge Mcintosh [facility] 03-26-2023 12:43-0500 SaO2% (BldA) [Mass fraction] 100 % Jorge Mcintosh [facility] 03-26-2023 12:43-0500 Systolic blood pressure 109 mm[Hg] Jorge Mcintosh [facility] 03-26-2023 10:55-0500 Body temperature 97.88 [degF] Jorge Mcintosh [facility] 03-26-2023 10:55-0500 Diastolic blood pressure 75 mm[Hg] Jorge Mcintosh [facility] 03-26-2023 10:55-0500 Heart rate 88 /min Jorge Mcintosh [facility] 03-26-2023 10:55-0500 Respiratory rate 16 /min Jorge Mcintosh [facility] 03-26-2023 10:55-0500 SaO2% (BldA) [Mass fraction] 95 % Jorge Mcintosh [facility] 03-26-2023 10:55-0500 Systolic blood pressure 132 mm[Hg] Jorge Mcintosh [facility] 2023 13:28-0500 Body height 160.02 cm ELIZABETH Veliz Work Phone: [facility] 2023 13:28-0500 Body temperature 97.8 [degF] TREASURY ANALYST Felice Veliz Work Phone: [facility] 2023 13:28-0500 Body weight 112.3 kg ELIZABETH Veliz Work Phone: [facility] 2023 13:28-0500 Diastolic blood pressure 85 mm[Hg] TREASURY ANALYST Felice Veliz Work Phone: [facility] 2023 13:28-0500 Heart rate 72 /min TREASURY ANALYST Felice Veliz Work Phone: [facility] 12-31-2023 13:28-0500 Respiratory rate 20 /min ELIZABETH Veliz Work Phone: [facility] 2023 13:28-0500 SaO2% (BldA) [Mass fraction] 98 % ELIZABETH Veliz Work Phone: [facility] 2023 13:28-0500 Systolic blood pressure 148 mm[Hg] ELIZABETH Veliz Work Phone: [facility] 03-23-2023 12:47-0500 Body temperature 97.7 [degF] Nikhil Arley [facility] 03-23-2023 12:47-0500 Diastolic blood pressure 100 mm[Hg] Nikhil Arley [facility] 03-23-2023 12:47-0500 Heart rate 77 /min Nikhil Arley [facility] 03-23-2023 12:47-0500 Respiratory rate 16 /min Nikhil Arley [facility] 03-23-2023 12:47-0500 SaO2% (BldA) [Mass fraction] 98 % Nikhil Arley [facility] 03-23-2023 12:47-0500 Systolic blood pressure 158 mm[Hg] Nikhil Arley [facility] 03-20-2023 13:07-0500 Body temperature 98.06 [degF] Kaylinn Dokken [facility] 03-20-2023 13:07-0500 Diastolic blood pressure 87 mm[Hg] Kaylinn Dokken [facility] 03-20-2023 13:07-0500 Heart rate 99 /min Kaylinn Dokken [facility] 03-20-2023 13:07-0500 Respiratory rate 16 /min Kaylinn Dokken [facility] 03-20-2023 13:07-0500 SaO2% (BldA) [Mass fraction] 97 % Houstonmsradha Sánchez [facility] 03-20-2023 13:07-0500 Systolic blood pressure 125 mm[Hg] Houstonmsradha Sánchez [facility] 03-11-2023 10:57-0500 Blood Pressure Location [facility] 03-11-2023 10:57-0500 Diastolic blood pressure 83 mm[Hg] [facility] 03-11-2023 10:57-0500 Heart rate 82 /min [facility] 03-11-2023 10:57-0500 Mean blood pressure 110 mm[Hg] [facility] 03-11-2023 10:57-0500 Respiratory rate 16 /min [facility] 03-11-2023 10:57-0500 SaO2% (BldA) [Mass fraction] 97 % [facility] 03-11-2023 10:57-0500 Systolic blood pressure 163 mm[Hg] [facility] 03-11-2023 10:13-0500 Blood Pressure Location [facility] 03-11-2023 10:13-0500 Diastolic blood pressure 99 mm[Hg] [facility] 03-11-2023 10:13-0500 Heart rate 64 /min [facility] 03-11-2023 10:13-0500 Mean blood pressure 117 mm[Hg] [facility] 03-11-2023 10:13-0500 Respiratory rate 16 /min [facility] 03-11-2023 10:13-0500 SaO2% (BldA) [Mass fraction] 95 % [facility] 03-11-2023 10:13-0500 Systolic blood pressure 154 mm[Hg] [facility] 03-11-2023 09:02-0500 Body temperature 97.88 [degF] [facility] 03-11-2023 09:02-0500 Diastolic blood pressure 94 mm[Hg] [facility] 03-11-2023 09:02-0500 Heart rate 76 /min [facility] 03-11-2023 09:02-0500 Respiratory rate 20 /min [facility] 03-11-2023 09:02-0500 SaO2% (BldA) [Mass fraction] 96 % [facility] 03-11-2023 09:02-0500 Systolic blood pressure 143 mm[Hg] [facility] 03-09-2023 10:24-0500 Body height 160.02 cm PHYSICIAN NO [facility] 03-09-2023 10:24-0500 Body temperature 97.9 [degF] PHYSICIAN NO [facility] 03-09-2023 10:24-0500 Body weight 110 kg PHYSICIAN NO [facility] 03-09-2023 10:24-0500 Diastolic blood pressure 87 mm[Hg] PHYSICIAN NO [facility] 03-09-2023 10:24-0500 Heart rate 97 /min PHYSICIAN NO [facility] 03-09-2023 10:24-0500 Respiratory rate 16 /min PHYSICIAN NO [facility] 03-09-2023 10:24-0500 SaO2% (BldA) [Mass fraction] 96 % PHYSICIAN NO [facility] 03-09-2023 10:24-0500 Systolic blood pressure 154 mm[Hg] PHYSICIAN NO [facility] 02-21-2023 17:00-0500 Body height 160.02 cm Services [employer] Work Phone: [facility] 02-21-2023 17:00-0500 Body weight 110.95 kg [facility] Work Phone: [facility] 02-21-2023 16:59-0500 Body temperature 97.3 [degF] [facility] Work Phone: [facility] 02-21-2023 16:59-0500 Diastolic blood pressure 86 mm[Hg] Services [employer] [facility] Work Phone: [facility] 02-21-2023 16:59-0500 Heart rate 91 /min Services [employer] [facility] Work Phone: [facility] 02-21-2023 16:59-0500 Respiratory rate 20 /min Services [facility] [employer] Work Phone: [facility] 02-21-2023 16:59-0500 SaO2% (BldA) [Mass fraction] 97 % [facility] [employer] Work Phone: [facility] 02-21-2023 16:59-0500 Systolic blood pressure 183 mm[Hg] [facility] [employer] Work Phone: [facility] 02-12-2023 19:48-0500 Body temperature 98.06 [degF] Pedro Pablo Chance [facility] 02-12-2023 19:48-0500 Diastolic blood pressure 84 mm[Hg] Pedro Pablo Chance [facility] 02-12-2023 19:48-0500 Heart rate 98 /min Pedro Pablo Chance [facility] 02-12-2023 19:48-0500 Respiratory rate 18 /min Pedro Pablo Chance [facility] 02-12-2023 19:48-0500 SaO2% (BldA) [Mass fraction] 100 % Pedro Pablo Chance [facility] 02-12-2023 19:48-0500 Systolic blood pressure 134 mm[Hg] Pedro Pablo Chance [facility] 02-08-2023 17:18-0500 Body height 160.02 cm Services [employer] [facility] Work Phone: [facility] 02-08-2023 17:18-0500 Body temperature 98.5 [degF] Services [employer] Work Phone: [facility] 02-08-2023 17:18-0500 Body weight 108.86 kg Services [employer] Work Phone: [facility] 02-08-2023 17:18-0500 Diastolic blood pressure 115 mm[Hg] Services [employer] Work Phone: [facility] 02-08-2023 17:18-0500 Heart rate 98 /min Services [employer] Work Phone: [facility] 02-08-2023 17:18-0500 Respiratory rate 18 /min Services [facility] [employer] Work Phone: [facility] 02-08-2023 17:18-0500 SaO2% (BldA) [Mass fraction] 98 % Services [employer] Work Phone: [facility] 02-08-2023 17:18-0500 Systolic blood pressure 167 mm[Hg] Services [facility] [employer] Work Phone: [facility] 02-07-2023 19:28-0500 Body temperature 97.88 [degF] Kaylinn Dokken [facility] 02-07-2023 19:28-0500 Diastolic blood pressure 84 mm[Hg] Kaylinn Dokken [facility] 02-07-2023 19:28-0500 Heart rate 114 /min Kaylinn Dokken [facility] 02-07-2023 19:28-0500 Respiratory rate 18 /min Kaylinn Dokken [facility] 02-07-2023 19:28-0500 SaO2% (BldA) [Mass fraction] 99 % Elisa Sánchez [facility] 02-07-2023 19:28-0500 Systolic blood pressure 163 mm[Hg] Elisa Sánchez [facility] 02-04-2023 13:13-0500 Diastolic blood pressure 91 mm[Hg] [facility] Work Phone: [facility] [...] 13:17-0500 Systolic blood pressure 171 mm[Hg] Services [employer] Work Phone: [facility] 01-29-2023 11:35-0500 Body temperature 98.06 [degF] Jorge Rodrigueze [facility] 01-29-2023 11:35-0500 Diastolic blood pressure 87 mm[Hg] Jorge Rodrigueze [facility] 01-29-2023 11:35-0500 Heart rate 84 /min Jorge Rodrigueze [facility] 01-29-2023 11:35-0500 Respiratory rate 18 /min Jorge Rodrigueze [facility] 01-29-2023 11:35-0500 SaO2% (BldA) [Mass fraction] 97 % Jorge Arnaldo [facility] 01-29-2023 11:35-0500 Systolic blood pressure 140 mm[Hg] Jorge Arnaldo [facility] 01-27-2023 10:41-0500 Body height 163.19 cm Services [employer] [facility] Work Phone: [facility] 01-27-2023 10:41-0500 Body weight 110 kg Services [employer] [facility] Work Phone: [facility] 01-27-2023 [...] 01-23-2023 13:19-0400 Systolic blood pressure 154 mm[Hg] [facility] Work Phone: [facility] 01-22-2023 18:48-0400 Body temperature 97.52 [degF] [facility] 01-22-2023 18:48-0400 Diastolic blood pressure 97 mm[Hg] [facility] 01-22-2023 18:48-0400 Heart rate 85 /min [facility] 01-22-2023 18:48-0400 Respiratory rate 16 /min [facility] 01-22-2023 18:48-0400 SaO2% (BldA) [Mass fraction] 96 % [facility] 01-22-2023 18:48-0400 Systolic blood pressure 143 mm[Hg] [facility] 01-22-2023 13:45-0400 Body height 160 cm Jori Harman MD PhD Work Phone: [facility] 01-22-2023 13:45-0400 Body mass index (BMI) [Ratio] 43.08 kg/m2 Jori Harman MD PhD Work Phone: [facility] 01-22-2023 13:45-0400 Body temperature 96.8 [degF] Jori Harman MD PhD Work Phone: [facility] 01-22-2023 13:45-0400 Body weight 110.31 kg Jori Harman MD PhD Work Phone: [facility] 01-22-2023 13:45-0400 Diastolic blood pressure 84 mm[Hg] Jori Harman MD PhD Work Phone: [facility] 01-22-2023 13:45-0400 Heart rate 97 /min Jori Harman MD PhD Work Phone: [facility] 01-22-2023 13:45-0400 Systolic blood pressure 160 mm[Hg] Jori Harman MD PhD Work Phone: [facility] 01-15-2023 13:20-0400 Body height 160 cm Antonio Newbill PA-C Work Phone: [facility] 01-15-2023 13:20-0400 Body mass index (BMI) [Ratio] 44.04 kg/m2 Antonio Newbill PA-C Work Phone: [facility] 01-15-2023 13:20-0400 Body temperature 97.5 [degF] Antonio Newbill PA-C Work Phone: [facility] 01-15-2023 13:20-0400 Body weight 112.76 kg Antonio Newbill PA-C Work Phone: [facility] 01-15-2023 13:20-0400 Diastolic blood pressure 90 mm[Hg] Antonio Newbill PA-C Work Phone: [facility] 01-15-2023 13:20-0400 Heart rate 92 /min Antonio Newbill PA-C Work Phone: [facility] 01-15-2023 13:20-0400 SaO2% (BldA) [Mass fraction] 94 % Antonio Newbill PA-C Work Phone: [facility] 01-15-2023 13:20-0400 Systolic blood pressure 144 mm[Hg] Antonio Newbill PA-C Work Phone: [facility] 01-14-2023 14:35-0400 Body temperature 97.52 [degF] Jorge Mcintosh [facility] 01-14-2023 14:35-0400 Diastolic blood pressure 81 mm[Hg] Jorge Mcintosh [facility] 01-14-2023 14:35-0400 Heart rate 81 /min Jorge Mcintosh [facility] 01-14-2023 14:35-0400 Respiratory rate 22 /min Jorge Mcintosh [facility] 01-14-2023 14:35-0400 SaO2% (BldA) [Mass fraction] 95 % Jorge Mcintosh [facility] 01-14-2023 14:35-0400 Systolic blood pressure 118 mm[Hg] Jorge Mcintosh [facility] 01-12-2023 21:30-0400 Body temperature 98.06 [degF] [facility] 01-12-2023 21:30-0400 Diastolic blood pressure 80 mm[Hg] [facility] 01-12-2023 21:30-0400 Heart rate 78 /min [facility] 01-12-2023 21:30-0400 Mean blood pressure 100 mm[Hg] [facility] 01-12-2023 21:30-0400 Respiratory rate 16 /min [facility] 01-12-2023 21:30-0400 SaO2% (BldA) [Mass fraction] 98 % [facility] 01-12-2023 21:30-0400 Systolic blood pressure 140 mm[Hg] [facility] 01-12-2023 21:00-0400 Diastolic blood pressure 67 mm[Hg] [facility] 01-12-2023 21:00-0400 Heart rate 70 /min [facility] 01-12-2023 21:00-0400 Mean blood pressure 91 mm[Hg] [facility] 01-12-2023 21:00-0400 Systolic blood pressure 138 mm[Hg] [facility] 01-12-2023 20:24-0400 Body temperature 98.06 [degF] [facility] 01-12-2023 20:24-0400 Diastolic blood pressure 84 mm[Hg] [facility] 01-12-2023 20:24-0400 Heart rate 79 /min [facility] 01-12-2023 20:24-0400 Respiratory rate 20 /min [facility] 01-12-2023 20:24-0400 SaO2% (BldA) [Mass fraction] 97 % [facility] 01-12-2023 20:24-0400 Systolic blood pressure 144 mm[Hg] [facility] 01-12-2023 10:20-0400 Body height 160.02 cm Services [employer] Work Phone: [facility] 01-12-2023 10:20-0400 Body temperature 97.8 [degF] Services [facility] [employer] Work Phone: [facility] 01-12-2023 10:20-0400 Body weight 113.39 kg Services [employer] Work Phone: [facility] 01-12-2023 10:20-0400 Diastolic blood pressure 75 mm[Hg] Services [facility] [employer] Work Phone: [facility] 01-12-2023 10:20-0400 Heart rate 79 /min Services [facility] [employer] Work Phone: [facility] 01-12-2023 10:20-0400 Respiratory rate 18 /min Services [employer] Work Phone: [facility] 01-12-2023 10:20-0400 SaO2% (BldA) [Mass fraction] 96 % [facility] [employer] Work Phone: [facility] 01-12-2023 10:20-0400 Systolic blood pressure 130 mm[Hg] Services [facility] [employer] Work Phone: [facility] 01-10-2023 10:32-0400 Body temperature 97.88 [degF] Nikhil Tubbs [facility] 01-10-2023 10:32-0400 Diastolic blood pressure 92 mm[Hg] Nikhil Tubbs [facility] 01-10-2023 10:32-0400 Heart rate 75 /min Nikhil Tubbs [facility] 01-10-2023 10:32-0400 Respiratory rate 18 /min Nikhil Tubbs [facility] 01-10-2023 10:32-0400 SaO2% (BldA) [Mass fraction] 98 % Nikhil Tubbs [facility] 01-10-2023 10:32-0400 Systolic blood pressure 138 mm[Hg] Nikhil Tubbs [facility] 01-10-2023 08:40-0400 Body height 162.56 cm Joe Meza Other [employer] [facility] [employer] Other 01-10-2023 08:40-0400 Body mass index (BMI) [Ratio] 43.94 kg/m2 Joe Meza Other [employer] [facility] [employer] Other 01-10-2023 08:40-0400 Body weight 116.12 kg Joe Meza Other [facility] [employer] Other 01-07-2023 11:04-0400 Body height 160.02 cm Services [employer] Work Phone: [facility] 01-07-2023 11:04-0400 Body temperature 97.5 [degF] Services [facility] Work Phone: [facility] 01-07-2023 11:04-0400 Body weight 108.86 kg Services [employer] Work Phone: [facility] 01-07-2023 11:04-0400 Diastolic blood pressure 81 mm[Hg] Services [employer] Work Phone: [facility] 01-07-2023 11:04-0400 Heart rate 75 /min Services [facility] Work Phone: [facility] 01-07-2023 11:04-0400 Respiratory rate 18 /min Services [facility] Work Phone: [facility] 01-07-2023 11:04-0400 SaO2% (BldA) [Mass fraction] 97 % Services [facility] Work Phone: [facility] 01-07-2023 11:04-0400 Systolic blood pressure 159 mm[Hg] Services [facility] Work Phone: [facility] 01-04-2023 23:07-0400 Diastolic blood pressure 83 mm[Hg] [facility] 01-04-2023 23:07-0400 Heart rate 77 /min [facility] 01-04-2023 23:07-0400 Respiratory rate 18 /min [facility] 01-04-2023 23:07-0400 SaO2% (BldA) [Mass fraction] 95 % [facility] 01-04-2023 23:07-0400 Systolic blood pressure 124 mm[Hg] [facility] 01-04-2023 21:12-0400 Body temperature 97.88 [degF] [facility] 01-04-2023 21:12-0400 Diastolic blood pressure 82 mm[Hg] [facility] 01-04-2023 21:12-0400 Heart rate 81 /min [facility] 01-04-2023 21:12-0400 Respiratory rate 16 /min [facility] 01-04-2023 21:12-0400 SaO2% (BldA) [Mass fraction] 98 % [facility] 01-04-2023 21:12-0400 Systolic blood pressure 121 mm[Hg] [facility] 01-04-2023 15:17-0400 Body height 160.02 cm Services [employer] [facility] Work Phone: [facility] 01-04-2023 15:17-0400 Body temperature 98.5 [degF] Services [employer] Work Phone: [facility] 01-04-2023 15:17-0400 Body weight 108.86 kg Services [employer] [facility] Work Phone: [facility] 01-04-2023 15:17-0400 Diastolic blood pressure 68 mm[Hg] Services [employer] Work Phone: [facility] 01-04-2023 15:17-0400 Heart rate 97 /min [facility] [employer] Work Phone: [facility] 01-04-2023 15:17-0400 Respiratory rate 18 /min Services [facility] [employer] Work Phone: [facility] 01-04-2023 15:17-0400 SaO2% (BldA) [Mass fraction] 96 % [facility] [employer] Work Phone: [facility] 01-04-2023 15:17-0400 Systolic blood pressure 148 mm[Hg] Services [employer] Work Phone: [facility] 01-02-2023 16:07-0400 Body temperature 97.88 [degF] Nikhil Tubbs [facility] 01-02-2023 16:07-0400 Diastolic blood pressure 84 mm[Hg] Nikhil Tubbs [facility] 01-02-2023 16:07-0400 Heart rate 67 /min Nikhil Tubbs [facility] 01-02-2023 16:07-0400 Respiratory rate 18 /min Nikhil Arley [facility] 01-02-2023 16:07-0400 SaO2% (BldA) [Mass fraction] 93 % Nikhil Tubbs [facility] 01-02-2023 16:07-0400 Systolic blood pressure 127 mm[Hg] Nikhil Tubbs [facility] 12-28-2022 14:48-0400 Heart rate 97 /min Services [employer] Work Phone: [facility] 12-28-2022 13:09-0400 Body height 160.02 cm Services [employer] Work Phone: [facility] 12-28-2022 13:09-0400 Body temperature 98.3 [degF] Services [employer] Work Phone: [facility] 12-28-2022 13:09-0400 Body weight 108.86 kg Services [employer] Work Phone: [facility] 12-28-2022 13:09-0400 Diastolic blood pressure 84 mm[Hg] Services [employer] Work Phone: [facility] 12-28-2022 13:09-0400 Respiratory rate 20 /min Services [employer] Work Phone: [facility] 12-28-2022 13:09-0400 SaO2% (BldA) [Mass fraction] 100 % Services [employer] Work Phone: [facility] 12-28-2022 13:09-0400 Systolic blood pressure 124 mm[Hg] Services [employer] Work Phone: [facility] 12-27-2022 08:40-0400 Body height 162.56 cm Rose Marie Shepherd Other [email or web address] Other 12-27-2022 08:40-0400 Body mass index (BMI) [Ratio] 42.05 kg/m2 Rose Marie Shepherd Other [email or web address] Other 12-27-2022 08:40-0400 Body weight 111.13 kg Rose Marie Shepherd Other [email or web address] Other 12-26-2022 16:28-0400 Body temperature 98.06 [degF] [facility] 12-26-2022 16:28-0400 Diastolic blood pressure 63 mm[Hg] [facility] 12-26-2022 16:28-0400 Heart rate 74 /min [facility] 12-26-2022 16:28-0400 Respiratory rate 18 /min [facility] 12-26-2022 16:28-0400 SaO2% (BldA) [Mass fraction] 98 % [facility] 12-26-2022 16:28-0400 Systolic blood pressure 142 mm[Hg] [facility] 12-26-2022 13:15-0400 Body height 162.56 cm Glen Garza Other [facility] [employer] Other 12-26-2022 13:15-0400 Body mass index (BMI) [Ratio] 42.74 kg/m2 Glen Garza Other [facility] [employer] Other 12-26-2022 13:15-0400 Body weight 112.95 kg Glen Garza Other [employer] [facility] [employer] Other 12-26-2022 13:15-0400 Diastolic blood pressure 80 mm[Hg] Glen Garza Other [employer] [facility] [employer] Other 12-26-2022 13:15-0400 SaO2% (BldA) [Mass fraction] 98 % Glen Garza Other [email or web address] Other 12-26-2022 13:15-0400 Systolic blood pressure 126 mm[Hg] Glen Garza Other [email or web address] Other 12-24-2022 12:28-0400 Body height 160.02 cm Services [employer] [facility] Work Phone: [facility] 12-24-2022 12:28-0400 Body temperature 97.8 [degF] Services [facility] Work Phone: [facility] 12-24-2022 12:28-0400 Body weight 114 kg Services [employer] Work Phone: [facility] 12-24-2022 12:28-0400 Diastolic blood pressure 78 mm[Hg] Services [employer] [facility] Work Phone: [facility] 12-24-2022 12:28-0400 Heart rate 82 /min [facility] [employer] Work Phone: [facility] 12-24-2022 12:28-0400 Respiratory rate 20 /min Services [employer] Work Phone: [facility] 12-24-2022 12:28-0400 SaO2% (BldA) [Mass fraction] 100 % Services [employer] Work Phone: [facility] 12-24-2022 12:28-0400 Systolic blood pressure 135 mm[Hg] Services [employer] Work Phone: [facility] 12-23-2022 16:55-0400 Body temperature 97.7 [degF] Nikhil Tubbs [facility] 12-23-2022 16:55-0400 Diastolic blood pressure 80 mm[Hg] Nikhil Tubbs [facility] 12-23-2022 16:55-0400 Heart rate 81 /min Nikhil Tubbs [facility] 12-23-2022 16:55-0400 Respiratory rate 20 /min Nikhil Tubbs [facility] 12-23-2022 16:55-0400 SaO2% (BldA) [Mass fraction] 98 % Nikhil Tubbs [facility] 12-23-2022 16:55-0400 Systolic blood pressure 123 mm[Hg] Nikhil Tubbs [facility] 12-21-2022 16:11-0400 Body height 160.02 cm [facility] Work Phone: [facility] 12-21-2022 16:11-0400 Body weight 112 kg [facility] Work Phone: [facility] [...] 16:10-0400 Systolic blood pressure 139 mm[Hg] Services [facility] Work Phone: [facility] 12-18-2022 12:25-0400 Body temperature 98.06 [degF] Jorge Mcintosh [facility] 12-18-2022 12:25-0400 Diastolic blood pressure 84 mm[Hg] Jorge Mcintosh [facility] 12-18-2022 12:25-0400 Heart rate 77 /min Jorge Mcintosh [facility] 12-18-2022 12:25-0400 Respiratory rate 18 /min Jorge Mcintosh [facility] 12-18-2022 12:25-0400 SaO2% (BldA) [Mass fraction] 98 % Jorge Mcintosh [facility] 12-18-2022 12:25-0400 Systolic blood pressure 131 mm[Hg] Jorge Mcintosh [facility] 12-14-2022 15:12-0400 Body height 160.02 cm Services [employer] Work Phone: [facility] 12-14-2022 15:12-0400 Body temperature 98.1 [degF] Services [employer] Work Phone: [facility] 12-14-2022 15:12-0400 Body weight 108.86 kg Services [employer] Work Phone: [facility] 12-14-2022 15:12-0400 Diastolic blood pressure 73 mm[Hg] Services [employer] Work Phone: [facility] 12-14-2022 15:12-0400 Heart rate 93 /min Services [employer] Work Phone: [facility] 12-14-2022 15:12-0400 Respiratory rate 20 /min Services [employer] Work Phone: [facility] 12-14-2022 15:12-0400 SaO2% (BldA) [Mass fraction] 97 % Services [employer] Work Phone: [facility] 12-14-2022 15:12-0400 Systolic blood pressure 132 mm[Hg] Services [employer] Work Phone: [facility] 12-13-2022 18:33-0400 Diastolic blood pressure 68 mm[Hg] Nikhil Tubbs [facility] 12-13-2022 18:33-0400 Heart rate 61 /min Nikhil Tubbs [facility] 12-13-2022 18:33-0400 Mean blood pressure 95 mm[Hg] Nikhil Tubbs [facility] 12-13-2022 18:33-0400 SaO2% (BldA) [Mass fraction] 97 % Nikhil Arley [facility] 12-13-2022 18:33-0400 Systolic blood pressure 149 mm[Hg] Nikhil Arley [facility] 12-13-2022 18:13-0400 Diastolic blood pressure 63 mm[Hg] Nikhil Arley [facility] 12-13-2022 18:13-0400 Heart rate 73 /min Nikhil Arley [facility] 12-13-2022 18:13-0400 Mean blood pressure 86 mm[Hg] Nikhil Arley [facility] 12-13-2022 18:13-0400 Respiratory rate 20 /min Nikhil Tubbs [facility] 12-13-2022 18:13-0400 SaO2% (BldA) [Mass fraction] 98 % Nikhil Tubbs [facility] 12-13-2022 18:13-0400 Systolic blood pressure 131 mm[Hg] Nikhil Arley [facility] 12-13-2022 17:22-0400 Body temperature 98.06 [degF] Nikhil Arley [facility] 12-13-2022 17:22-0400 Diastolic blood pressure 61 mm[Hg] Nikhil Arley [facility] 12-13-2022 17:22-0400 Heart rate 63 /min Nikhil Arley [facility] 12-13-2022 17:22-0400 Respiratory rate 22 /min Nikhil Arley [facility] 12-13-2022 17:22-0400 SaO2% (BldA) [Mass fraction] 98 % Nikhil Arley [facility] 12-13-2022 17:22-0400 Systolic blood pressure 147 mm[Hg] Nikhil Arley [facility] 12-13-2022 00:15-0400 Diastolic blood pressure 56 mm[Hg] Kaylinn Dokken [facility] 12-13-2022 00:15-0400 Heart rate 65 /min Kaylinn Dokken [facility] 12-13-2022 00:15-0400 Mean blood pressure 77 mm[Hg] Kaylinn Dokken [facility] 12-13-2022 00:15-0400 Respiratory rate 16 /min Kaylinn Dokken [facility] 12-13-2022 00:15-0400 SaO2% (BldA) [Mass fraction] 96 % Kaylinn Dokken [facility] 12-13-2022 00:15-0400 Systolic blood pressure 120 mm[Hg] Kaylinn Dokken [facility] 12-12-2022 23:39-0400 Diastolic blood pressure 47 mm[Hg] Kaylinn Dokken [facility] 12-12-2022 23:39-0400 Heart rate 70 /min Kaylinn Dokken [facility] 12-12-2022 23:39-0400 Mean blood pressure 77 mm[Hg] Kaylinn Dokken [facility] 12-12-2022 23:39-0400 Respiratory rate 25 /min Kaylinn Dokken [facility] 12-12-2022 23:39-0400 SaO2% (BldA) [Mass fraction] 95 % Kaylinn Dokken [facility] 12-12-2022 23:39-0400 Systolic blood pressure 136 mm[Hg] Kaylinn Dokken [facility] 12-12-2022 22:59-0400 Diastolic blood pressure 72 mm[Hg] Kaylinn Dokken [facility] 12-12-2022 22:59-0400 Heart rate 69 /min Kaylinn Dokken [facility] 12-12-2022 22:59-0400 Mean blood pressure 96 mm[Hg] Kaylinn Dokken [facility] 12-12-2022 22:59-0400 Respiratory rate 18 /min Kaylinn Dokken [facility] 12-12-2022 22:59-0400 SaO2% (BldA) [Mass fraction] 95 % Kaylinn Dokken [facility] 12-12-2022 22:59-0400 Systolic blood pressure 143 mm[Hg] Kaylinn Dokken [facility] 12-12-2022 22:04-0400 Respiratory rate 18 /min Kaylinn Dokken [facility] 12-12-2022 20:58-0400 Body temperature 98.24 [degF] Kaylinn Dokken [facility] 12-12-2022 20:58-0400 Heart rate 79 /min Kaylinn Dokken [facility] 12-12-2022 20:58-0400 Respiratory rate 18 /min Elisa [email or web address] [place] [facility] 12-12-2022 10:45-0400 Diastolic blood pressure 75 [...] 12-09-2022 16:38-0400 Heart rate 90 /min Services [facility] Work Phone: [facility] 12-09-2022 16:38-0400 Respiratory rate 20 /min Services [facility] Work Phone: [facility] 12-09-2022 16:38-0400 SaO2% (BldA) [Mass fraction] 98 % Services [facility] Work Phone: [facility] 12-09-2022 16:38-0400 Systolic blood pressure 125 mm[Hg] Services [facility] Work Phone: [facility] 12-07-2022 18:54-0400 Heart rate 70 /min Chandana Avery [facility] 12-07-2022 18:54-0400 Respiratory rate 16 /min Chandana Avery [facility] 12-07-2022 18:54-0400 SaO2% (BldA) [Mass fraction] 99 % Chandana Avery [facility] 12-07-2022 16:49-0400 Body temperature 98.78 [degF] Chandana Avery [facility] 12-07-2022 16:49-0400 Diastolic blood pressure 79 mm[Hg] Chandana Avery [facility] 12-07-2022 16:49-0400 Heart rate 84 /min Chandana Avery [facility] 12-07-2022 16:49-0400 Respiratory rate 18 /min Chandana Avery [facility] 12-07-2022 16:49-0400 SaO2% (BldA) [Mass fraction] 98 % Chandana Varela [facility] 12-07-2022 16:49-0400 Systolic blood pressure 116 mm[Hg] Chandana Varela [facility] 12-07-2022 10:20-0400 Body height 160.02 cm Services [employer] Work Phone: [facility] 12-07-2022 10:20-0400 Body temperature 97.6 [degF] Services [employer] Work Phone: [facility] 12-07-2022 10:20-0400 Body weight 110.1 kg Services [employer] Work Phone: [facility] 12-07-2022 10:20-0400 Diastolic blood pressure 82 mm[Hg] Services [facility] Work Phone: [facility] 12-07-2022 10:20-0400 Heart rate 98 /min [facility] Work Phone: [facility] 12-07-2022 10:20-0400 Respiratory rate 22 /min [facility] [employer] Work Phone: [facility] 12-07-2022 10:20-0400 SaO2% (BldA) [Mass fraction] 98 % [facility] [employer] Work Phone: [facility] 12-07-2022 10:20-0400 Systolic blood pressure 139 mm[Hg] [facility] [employer] Work Phone: [facility] 12-04-2022 20:24-0400 Body temperature 98.01 [degF] Allyson Nicole DO Work Phone: [employer] 12-04-2022 20:24-0400 Diastolic blood pressure 74 mm[Hg] Allyson Nicole DO Work Phone: [employer] 12-04-2022 20:24-0400 Heart rate 70 /min Allyson Nicole DO Work Phone: [employer] 12-04-2022 20:24-0400 Respiratory rate 18 /min Allyson Tunde DO Work Phone: [employer] 12-04-2022 20:24-0400 SaO2% (BldA) [Mass fraction] 98 % Allyson Tunde DO [facility] 12-04-2022 20:24-0400 Systolic blood pressure 127 mm[Hg] Allyson Nicole DO Work Phone: [employer] 12-04-2022 19:35-0400 Body height 160 cm Allyson Nicole DO Work Phone: [employer] 12-04-2022 19:35-0400 Body mass index (BMI) [Ratio] 42.16 kg/m2 Allyson Tunde DO Work Phone: [employer] 12-04-2022 19:35-0400 Body weight 107.96 kg Allyson Nicole DO Work Phone: [employer] 11-29-2022 16:15-0400 Body temperature 97.9 [degF] [facility] Work Phone: [facility] 11-29-2022 16:15-0400 Diastolic blood pressure 86 mm[Hg] [facility] Work Phone: [facility] 11-29-2022 16:15-0400 Heart rate 86 /min [facility] Work Phone: [facility] 11-29-2022 16:15-0400 Respiratory rate 18 /min Services [employer] [facility] Work Phone: [facility] 11-29-2022 16:15-0400 SaO2% (BldA) [Mass fraction] 98 % [facility] [employer] Work Phone: [facility] 11-29-2022 16:15-0400 Systolic blood pressure 113 mm[Hg] [facility] [employer] Work Phone: [facility] 11-29-2022 15:27-0400 Body height 160.02 cm [facility] Work Phone: [facility] 11-29-2022 15:27-0400 [...] 11-28-2022 08:54-0400 Body weight 108.86 kg Services [employer] [facility] Work Phone: [facility] 11-19-2022 10:30-0400 Body height 162.56 cm Glen Garza Other [email or web address] Other 11-19-2022 10:30-0400 Body mass index (BMI) [Ratio] 42.39 kg/m2 Glen Garza Other [email or web address] Other 11-19-2022 10:30-0400 Body weight 112.04 kg Glen Garza Other [facility] [employer] Other 11-19-2022 10:30-0400 Diastolic blood pressure 70 mm[Hg] Glen Garza Other [email or web address] Other 11-19-2022 10:30-0400 SaO2% (BldA) [Mass fraction] 97 % Glen Garza Other [employer] [facility] [employer] Other 11-19-2022 10:30-0400 Systolic blood pressure 102 mm[Hg] Glen Garza Other [facility] [employer] Other 11-18-2022 12:35-0400 Body height 160.02 cm [...] 09:00-0400 Body height 162.56 cm Rose Marie Joao Other [email or web address] Other 11-06-2022 09:00-0400 Body mass index (BMI) [Ratio] 41.36 kg/m2 Rose Marie Shepherd Other [email or web address] Other 11-06-2022 09:00-0400 Body weight 109.32 kg Rose Marie Shepherd Other [email or web address] Other 11-06-2022 09:00-0400 Diastolic blood pressure 76 mm[Hg] Rose Marie Shepherd Other [email or web address] Other 11-06-2022 09:00-0400 Systolic blood pressure 136 mm[Hg] Rose Marieike Shepherd Other [email or web address] Other 11-01-2022 20:46-0400 Body height 160.02 cm [facility] Work Phone: [facility] 11-01-2022 20:46-0400 Body temperature 97.8 [degF] [facility] Work Phone: [facility] 11-01-2022 20:46-0400 Body weight 109.76 kg [facility] Work Phone: [facility] [...] Body height 162.56 cm Glen Garza Other [employer] [facility] [employer] Other 09-26-2022 14:00-0400 Diastolic blood pressure 70 mm[Hg] Glentito Garza Other [email or web address] Other 09-26-2022 14:00-0400 SaO2% (BldA) [Mass fraction] 97 % Glen Garza Other [email or web address] Other 09-26-2022 14:00-0400 Systolic blood pressure 140 mm[Hg] Glen Garza Other [email or web address] Other 09-24-2022 17:58-0400 Body temperature 97.8 [degF] [...] 09-05-2022 15:23-0400 Heart rate 90 /min Services [facility] Work Phone: [facility] 09-05-2022 15:23-0400 Respiratory rate 20 /min Services [facility] Work Phone: [facility] 09-05-2022 15:23-0400 SaO2% (BldA) [Mass fraction] 98 % [facility] [employer] Work Phone: [facility] 09-05-2022 15:23-0400 Systolic blood pressure 151 mm[Hg] Services [facility] Work Phone: [facility] 09-04-2022 19:11-0400 Body temperature 98.42 [degF] Pedro Pablo Chance [facility] 09-04-2022 19:11-0400 Diastolic blood pressure 104 mm[Hg] Pedro Pablo Chance [facility] 09-04-2022 19:11-0400 Heart rate 101 /min Pedro Pablo Chance [facility] 09-04-2022 19:11-0400 Respiratory rate 18 /min Pedro Pablo Chance [facility] 09-04-2022 19:11-0400 SaO2% (BldA) [Mass fraction] 100 % Pedro Pablo Chance [facility] 09-04-2022 19:11-0400 Systolic blood pressure 141 mm[Hg] Pedro Pablo Chance [facility] 09-04-2022 10:00-0400 Body height 162.56 cm Glen Garza Other [facility] [employer] Other 09-04-2022 10:00-0400 Body mass index (BMI) [Ratio] 40.16 kg/m2 Glen Garza Other [email or web address] Other 09-04-2022 10:00-0400 Body weight 106.14 kg Glen Garza Other [email or web address] Other 09-04-2022 10:00-0400 Diastolic blood pressure 70 mm[Hg] Glen Garza Other [email or web address] Other 09-04-2022 10:00-0400 SaO2% (BldA) [Mass fraction] 99 % Glen Garza Other [email or web address] Other 09-04-2022 10:00-0400 Systolic blood pressure 110 mm[Hg] Glen Garza Other [employer] Other 09-01-2022 15:00-0400 Body height 162.56 cm Services [employer] [facility] Work Phone: [facility] 09-01-2022 15:00-0400 Body temperature 97.7 [degF] [facility] Work Phone: [facility] 09-01-2022 15:00-0400 Body weight 104 kg Services [employer] [facility] Work Phone: [facility] 09-01-2022 15:00-0400 Diastolic blood pressure 73 mm[Hg] [facility] Work Phone: [facility] 09-01-2022 15:00-0400 Heart rate 96 /min [facility] Work Phone: [facility] 09-01-2022 15:00-0400 Respiratory rate 20 /min Services [employer] [facility] Work Phone: [facility] 09-01-2022 [...] 119 mm[Hg] [facility] Work Phone: [facility] 08-21-2022 08:40-0400 Body height 162.56 cm Rose Marie Shepherd Other [facility] [employer] Other 08-21-2022 08:40-0400 Body mass index (BMI) [Ratio] 40.16 kg/m2 Rose Marie Shepherd Other [facility] [employer] Other 08-21-2022 08:40-0400 Body weight 106.14 kg Rose Marie Shepherd Other [email or web address] Other 08-21-2022 08:40-0400 Diastolic blood pressure 78 mm[Hg] Rose Marie Shepherd Other [email or web address] Other 08-21-2022 08:40-0400 Systolic blood pressure 132 mm[Hg] Rose Marie Shepherd Other [facility] [employer] Other 08-17-2022 00:19-0400 Diastolic blood pressure 62 [...] SaO2% (BldA) [Mass fraction] 96 % Services [facility] Work Phone: [facility] 09-13-2021 17:16-0400 Systolic blood pressure 136 mm[Hg] Services [facility] Work Phone: [facility] 03-30-2021 10:30-0500 Body height 162.56 cm [employer] Other [email or web address] Other Encounters Encounter Date Encounter Type Care Provider Facility Start: 02-20-2024 End: 02-20-2024 Emergency department patient visit Nikhil Tubbs [facility] Start: 02-16-2024 End: 02-16-2024 Emergency department patient visit Nikhil Tubbs [facility] Start: 02-14-2024 End: 02-14-2024 Emergency department patient visit Jorge Mcintosh [facility] Start: 02-09-2024 End: 02-09-2024 Emergency department patient visit Allyson Hardwick MD Work Phone: [facility] Comment on above: Encounter for manage ment of wound VAC (Primary Dx); Postoperative pain after spinal surgery Start: 02-06-2024 End: 02-06-2024 Subsequent hospital visit by physician Judah Woodard MD Work Phone: [facility] [place] Comment on above: Lumbar disc herniati on with radiculopathy (Primary Dx) Start: 02-06-2024 End: 02-06-2024 ambulatory JUDAH WOODARD [facility] Start: 02-06-2024 End: 02-06-2024 Subsequent hospital visit by physician Tracie C-Arm 2 [facility] Comment on above: Back pain Start: 02-05-2024 End: 02-05-2024 Emergency department patient visit [facility] Work Phone: [facility] Work Phone: Start: 02-04-2024 End: 02-04-2024 Emergency department patient visit Jorge Mcintosh [facility] Start: 02-04-2024 End: 02-04-2024 Office outpatient new 45 minutes Dino Melgoza MD Work Phone: [facility] Comment on above: Chronic low back marily n without sciatica, unspecified back pain laterality (Primary Dx) Start: 02-04-2024 End: 02-05-2024 ambulatory DINO MELGO[facility] Start: 01-30-2024 End: 01-30-2024 Emergency department patient visit MARLEE FITZPATRICK [facility] Emergency Medicine Comment on above: Fall, initial encoun ter (Primary Dx); Chronic low back pain with left-sided sciatica, unspecified back pain laterality Start: 01-29-2024 End: 01-29-2024 ambulatory [facility] Start: 01-29-2024 End: 01-29-2024 Encounter for other preprocedural examination [facility] Start: 01-27-2024 End: 01-28-2024 ambulatory BIB BOWMAN [facility] Start: 01-27-2024 End: 01-28-2024 Subsequent hospital visit by physician Giulia Man MD Work Phone: [facility] 2 Comment on above: Chronic pain syndrom e (Primary Dx); Acute left-sided low back pain with left-sided sciatica; Left leg weakness Start: 01-26-2024 ambulatory GIULIA MAN [facility] Start: 01-26-2024 End: 01-27-2024 Emergency department patient visit Bib Bowman MD Work Phone: [facility] Emergency Medicine Comment on above: Acute left-sided low back pain with left-sided sciatica (Primary Dx) Start: 01-26-2024 End: 01-26-2024 Emergency department patient visit [facility] Work Phone: [facility] Work Phone: Start: 01-25-2024 End: 01-25-2024 Emergency department patient visit Jorge Mcintosh [facility] Start: 01-24-2024 End: 01-24-2024 Emergency department patient visit MARLEE FITZPATRICK [facility] Emergency Medicine Comment on above: Acute bilateral low back pain without sciatica (Primary Dx) Start: 01-23-2024 End: 01-23-2024 Emergency department patient visit Balbina Bryant [facility] Start: 01-21-2024 End: 01-21-2024 Emergency department patient visit MARLEE FITZPATRICK [facility] Emergency Medicine Comment on above: Acute left-sided low back pain with left-sided sciatica (Primary Dx) Start: 01-21-2024 ambulatory [facility] Start: 01-16-2024 End: 01-16-2024 Emergency department patient visit Services [facility] Work Phone: [facility] Work Phone: Start: 01-14-2024 End: 01-14-2024 Emergency department patient visit Nikhil Tubbs [facility] Start: 01-14-2024 End: 01-14-2024 [facility] Start: 01-14-2024 End: 01-14-2024 Office outpatient new 60 minutes Judah Woodard MD Work Phone: [facility] Comment on above: Lumbar disc herniati on with radiculopathy (Primary Dx) Start: 01-13-2024 End: 01-13-2024 Emergency department patient visit [facility] Comment on above: Acute midline low ba ck pain without sciatica (Primary Dx) Start: 01-10-2024 End: 01-10-2024 Emergency department patient visit [facility] Comment on above: Chronic low back marily n with sciatica, sciatica laterality unspecified, unspecified back pain laterality (Primary Dx); Left leg weakness; Decreased sensation of leg; Lumbar disc herniation Start: 01-06-2024 End: 01-08-2024 ambulatory [facility] Start: 01-06-2024 End: 01-08-2024 Emergency department [facility] Comment on above: Left leg weakness (P rimary Dx); Chronic back pain greater than 3 months duration Start: 01-06-2024 End: 01-06-2024 Emergency department patient visit Jorge Mcintosh [facility] Start: 01-01-2024 End: 01-04-2024 Evaluation and management of inpatient Ace [facility] Comment on above: Left leg weakness (P rimary Dx); Chronic midline low back pain, unspecified whether sciatica present; Spinal stenosis of lumbar region, unspecified whether neurogenic claudication present; Acute exacerbation of chronic low back pain Start: 12-30-2023 End: 12-30-2023 Emergency department patient visit [facility] Comment on above: Acute exacerbation o f chronic low back pain (Primary Dx) Start: 12-29-2023 End: 12-29-2023 Emergency department patient visit PHYSICIAN [facility] Start: 12-27-2023 End: 12-27-2023 Postop follow up visit related to original px Elke Adams MD [facility] Comment on above: Neuropathic pain (Pr imary Dx); Dehiscence of wound of skin, subsequent encounter; Status post insertion of spinal cord stimulator Start: 12-27-2023 End: 12-27-2023 ambulatory ELKE ADAMS [facility] Start: 12-26-2023 End: 12-26-2023 Emergency department patient visit Nikhil Tubbs [facility] Start: 12-26-2023 End: 12-26-2023 Emergency department patient visit [facility] Work Phone: [facility] Work Phone: Start: 12-26-2023 End: 12-26-2023 Emergency department patient visit [facility] Facility:[facility] Start: 12-24-2023 End: 12-24-2023 Emergency department patient visit Balbina Bryant Facility:[facility] Start: 12-24-2023 End: 12-24-2023 Office outpatient visit 15 minutes Chidi Joseph MD Work Phone: [facility] Comment on above: Hepatitis C virus in fection cured after antiviral drug therapy; Hepatic fibrosis, advanced fibrosis Start: 12-24-2023 End: 12-24-2023 ambulatory CHIDI [facility] Start: 12-23-2023 Non-patient / Non-visit Servic [facility] Work Phone: [facility] Work Phone: Start: 12-23-2023 End: 12-23-2023 ambulatory HCIDI Nguyen [facility] Start: 12-21-2023 End: 12-21-2023 Emergency department patient visit NO ASSIGNED PCP GENERIC PROVIDER [facility] Start: 12-20-2023 End: 12-20-2023 Emergency department patient visit Daysi Linder 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 Facility:[facility] Start: 12-18-2023 End: 12-19-2023 Emergency department patient visit NO ASSIGNED PCP GENERIC PROVIDER [facility] Start: 12-15-2023 End: 12-15-2023 Emergency department patient visit PABLO GERONIMO [facility] Start: 12-13-2023 End: 12-13-2023 Emergency department patient visit NO ASSIGNED PCP GENERIC PROVIDER [facility] Start: 12-13-2023 End: 12-13-2023 Emergency department patient visit Jorge Mcintosh [facility] Start: 12-13-2023 End: 12-13-2023 ambulatory ELKE Ellsworth [facility] Start: 12-12-2023 End: 12-12-2023 Emergency department patient visit Services Family [facility] Work Phone: [facility] Work Phone: Start: 12-11-2023 End: 12-11-2023 Emergency department patient visit NO ASSIGNED PCP GENERIC PROVIDER [facility] Start: 12-10-2023 End: 12-10-2023 Emergency department patient visit ROBERTO APARICIO [facility] Start: 12-09-2023 End: 12-10-2023 Emergency department patient visit FELICE VELIZ [facility] Start: 12-09-2023 End: 12-09-2023 Emergency department patient visit FELICE VELIZ [facility] Start: 12-07-2023 End: 12-07-2023 Emergency department patient visit DOUG ALFONSO [facility] Start: 12-07-2023 End: 12-07-2023 Emergency department patient visit FELICE VELIZ [facility] Start: 12-06-2023 End: 12-07-2023 Emergency department patient visit CRISTOBAL GARIBAY [facility] Start: 12-06-2023 End: 12-06-2023 ambulatory ELKE Ellsworth [facility] Start: 12-05-2023 End: 12-05-2023 Emergency department patient visit Balbina Bryant Facility:[facility] Start: 12-04-2023 End: 12-04-2023 Emergency department patient visit Ben Urbina MD Work Phone: [facility] Start: 12-01-2023 End: 12-02-2023 Emergency department patient visit Services [employer] Work Phone: [facility] Work Phone: Start: 12-01-2023 End: 12-01-2023 Emergency department patient visit [facility] Start: 11-29-2023 End: 11-29-2023 ambulatory ELKE Seng [facility] Start: 11-27-2023 End: 11-27-2023 Emergency department patient visit [facility] Start: 11-26-2023 End: 11-27-2023 Emergency department patient visit No PCP Facility:[facility] Start: 11-26-2023 End: 11-26-2023 Emergency department patient visit Kristin Alvarez Manny Facility:[facility] Start: 11-25-2023 End: 11-25-2023 Emergency department patient visit [facility] Work Phone: [facility] Work Phone: Start: 11-24-2023 End: 11-24-2023 Emergency department patient visit [facility] Start: 11-22-2023 End: 11-22-2023 ambulatory ELKE Ellsworth [facility] Start: 11-13-2023 End: 11-13-2023 Evaluation and management of inpatient CRISTOBAL GARIBAY [facility] Start: 11-13-2023 End: 11-19-2023 Evaluation and management of inpatient NO ASSIGNED PCP GENERIC PROVIDER [facility] Start: 11-10-2023 End: 11-10-2023 Emergency department patient visit Services [employer] [facility] Work Phone: [facility] Work Phone: Start: 11-09-2023 End: 11-09-2023 Emergency department patient visit NO ASSIGNED PCP GENERIC PROVIDER [facility] Start: 11-09-2023 End: 11-09-2023 Emergency department patient visit NO ASSIGNED PCP GENERIC PROVIDER [facility] Start: 11-08-2023 End: 11-08-2023 ambulatory ELKE Ellsworth ELENA [facility] Start: 11-08-2023 End: 11-08-2023 ambulatory CHIRAG REYNOSO [facility] Start: 11-06-2023 End: 11-06-2023 ambulatory GENESEO Seng [facility] Start: 11-06-2023 End: 11-06-2023 Encounter for other preprocedural examination [facility] Start: 11-05-2023 End: 11-05-2023 Emergency department patient visit Pedro Pablo Fletcher [facility] Start: 11-05-2023 End: 11-05-2023 ambulatory NO ASSIGNED PCP GENERIC PROVIDER [facility] Start: 11-02-2023 End: 11-02-2023 Emergency department patient visit Abby Villareal PA-C Facility:[facility] Start: 10-31-2023 End: 11-01-2023 ambulatory WICHO TUBBS [facility] Start: 10-30-2023 End: 10-31-2023 Emergency department patient visit Aaliyah Fischer DO Work Phone: [facility] Comment on above: Infection of superfi cial incisional surgical site after procedure, initial encounter (Primary Dx) Start: 10-30-2023 End: 10-30-2023 Emergency department patient visit Balbina Bryant [facility] Start: 10-26-2023 End: 10-26-2023 Emergency department patient visit Pedro Pablo Fletcher [facility] Start: 10-25-2023 End: 10-25-2023 ambulatory ELKE Ellsworth [facility] Start: 10-19-2023 End: 10-19-2023 Emergency department patient visit Services [employer] [facility] Work Phone: [facility] Work Phone: Start: 10-11-2023 End: 10-16-2023 Evaluation and management of inpatient NO ASSIGNED PCP GENERIC PROVIDER [facility] Start: 10-11-2023 Evaluation and management of inpatient ELKE Ellsworth [facility] Start: 10-11-2023 End: 10-11-2023 ambulatory ELKE Ellsworth [facility] Start: 10-05-2023 End: 10-06-2023 Emergency department patient visit NO ASSIGNED PCP GENERIC PROVIDER [facility] Start: 10-05-2023 End: 10-05-2023 Emergency department patient visit [facility] Work Phone: [facility] Work Phone: Start: 10-05-2023 End: 10-05-2023 Emergency department patient visit Susu Lamar PA-C Facility:[facility] Start: 10-04-2023 End: 10-04-2023 Emergency department patient visit Jorge Mcintosh [facility] Start: 09-26-2023 End: 09-26-2023 Emergency department patient visit Cheyanne Rosas [employer]SEMBLER EQUIPMENT Facility:[facility] Start: 09-25-2023 End: 09-25-2023 Emergency department patient visit Balbina Bryant [facility] Start: 09-21-2023 End: 09-21-2023 Emergency department patient visit Nikhil Tubbs [facility] Start: 09-20-2023 End: 09-20-2023 Emergency department patient visit Jorge Mcintosh [facility] Start: 09-19-2023 End: 09-19-2023 Emergency department patient visit NO ASSIGNED PCP GENERIC PROVIDER [facility] Start: 09-18-2023 ambulatory ELKE Ellsworth [facility] Start: 09-17-2023 End: 09-17-2023 ambulatory Dax Lira Facility:[facility] [facility] Start: 09-17-2023 End: 09-17-2023 Patient encounter procedure Dax Lira [facility] Start: 09-16-2023 End: 09-16-2023 Emergency department patient visit NO ASSIGNED PCP GENERIC PROVIDER [facility] Start: 09-16-2023 End: 09-16-2023 ambulatory NO ASSIGNED PCP GENERIC PROVIDER [facility] Start: 09-11-2023 End: 09-11-2023 ambulatory Ashia Ruiz Facility[facility] Start: 09-11-2023 End: 09-11-2023 Patient encounter procedure Ashia M Joseph [facility] Start: 09-10-2023 End: 09-10-2023 Emergency department patient visit Benja Mishra DO Work Phone: [facility] Comment on above: Strain of lumbar reg ion, initial encounter (Primary Dx) Start: 09-09-2023 End: 09-09-2023 Emergency department patient visit Jorge Mcintosh [facility] Start: 09-08-2023 End: 09-08-2023 Emergency department patient visit [facility] Work Phone: [facility] Work Phone: Start: 09-06-2023 End: 09-06-2023 Emergency department patient visit Pedro Pablo Fletcher [facility] Start: 09-02-2023 End: 09-02-2023 Emergency department patient visit Jorge Mcintosh [facility] Start: 08-30-2023 End: 08-30-2023 Emergency department patient visit Nikhil Tubbs [facility] Start: 08-27-2023 End: 08-27-2023 ambulatory CHIRAG REYNOSO [facility] Start: 08-27-2023 End: 08-27-2023 Postop follow up visit related to original px Chirag Reynoso 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 Work Phone: [facility] Comment on above: Chronic back pain gr eater than 3 months duration (Primary Dx); Neuropathic pain Start: 08-21-2023 End: 08-21-2023 ambulatory ELKE ADAMS [facility] Start: 08-21-2023 End: 08-21-2023 Subsequent hospital visit by physician Elke Adams MD Work Phone: [facility] [place] Comment on above: Chronic back pain gr eater than 3 months duration (Primary Dx); Neuropathic pain; Continuous opioid dependence (Multi) Start: 08-17-2023 End: 08-17-2023 Emergency department patient visit Cheyanne Rosas ASSEMBLER EQUIPMENT Facility:[facility] Start: 08-16-2023 End: 08-16-2023 Emergency department patient visit Daysi Linder 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 Facility:[facility] Start: 08-15-2023 End: 08-16-2023 Emergency department patient visit Balbina Bryant [facility] Start: 08-14-2023 End: 08-14-2023 ambulatory Domenic Sher Facility[facility] Start: 08-14-2023 End: 08-14-2023 Pain Management Domenic Sher [facility] Start: 08-12-2023 End: 08-12-2023 Emergency department patient visit Elisa Ellsworth Dorobert [facility] Start: 08-09-2023 End: 08-09-2023 Emergency department patient visit Keke Payne MD Work Phone: [facility] Start: 08-07-2023 End: 08-07-2023 ambulatory Ashia Ruiz Facility[facility] Start: 08-07-2023 End: 08-07-2023 Patient encounter procedure Ashia Ruiz [facility] Start: 08-05-2023 End: 08-05-2023 Emergency department patient visit Pedro Pablo Fletcher [facility] Start: 08-02-2023 End: 08-02-2023 Emergency department patient visit Nikhil Tubbs [facility] Start: 08-02-2023 End: 08-02-2023 ambulatory ELKE Ellsworth [facility] Start: 08-02-2023 End: 08-02-2023 Encounter for other preprocedural examination ELKE Ellsworth [facility] Start: 07-31-2023 End: 07-31-2023 Emergency department patient visit Balbina Bryant [facility] Start: 07-26-2023 End: 07-26-2023 ambulatory SLIME SHERWOOD [facility] Start: 07-26-2023 End: 07-26-2023 Emergency department patient visit Jorge Mcintosh [facility] Start: 07-20-2023 End: 07-20-2023 Emergency department patient visit Nikhil Tubbs Facility:[facility] [place] Start: 07-17-2023 ambulatory Balbina Finleyzander Facility :[facility] Start: 07-17-2023 End: 07-17-2023 ambulatory Cheyanne Rosas Facility:[facility] Start: 07-17-2023 End: 07-17-2023 Patient encounter procedure Cheyanne Rosas [facility] Start: 07-17-2023 End: 07-17-2023 Well adult monitoring check done Cheyanne Rosas [facility] Start: 07-15-2023 End: 07-15-2023 ambulatory XXXX NONE Facility:[facility] Start: 07-15-2023 End: 07-15-2023 Pain Management Dory Shepherd [facility] Start: 07-14-2023 End: 07-14-2023 Emergency department patient visit Nikhil Tubbs [facility] Start: 07-11-2023 ambulatory Balbina Bryant Facility :[facility] Start: 07-11-2023 End: 07-11-2023 Emergency department patient visit [facility] Bridger Bryant [facility] Start: 07-08-2023 End: 07-08-2023 Telemedicine consultation with patient Declan Del Angel PhD Work Phone: [facility] Comment on above: 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 Start: 07-08-2023 End: 07-08-2023 ambulatory DECLAN [facility] Start: 07-06-2023 End: 07-06-2023 [facility] Start: 07-04-2023 End: 07-04-2023 Emergency department patient visit [facility] Work Phone: [facility] Work Phone: Start: 06-29-2023 End: 06-29-2023 Emergency department patient visit Nikhil Tubbs [facility] Start: 06-27-2023 End: 06-27-2023 Emergency department patient visit Nikhil Tubbs [facility] Start: 06-26-2023 End: 06-26-2023 Emergency department patient visit ELIZABETH Joshua Carranzamond Work Phone: [facility] Work Phone: Start: 06-24-2023 End: 06-24-2023 Emergency department patient visit [facility] Bridger Starreduard [facility] Start: 06-22-2023 End: 06-22-2023 ambulatory Sherron Susie CHAUDHARI Facility:[facility] [place] [facility] Start: 06-22-2023 End: 06-22-2023 Emergency department patient visit Nikhil Tubbs [facility] Start: 06-22-2023 End: 06-22-2023 ambulatory Sherron T FARA Facility:[facility] [place] Start: 06-17-2023 End: 06-17-2023 ambulatory SLIME Cantu [facility] Start: 06-15-2023 End: 06-15-2023 [facility] Start: 06-15-2023 End: 06-15-2023 Emergency department patient visit MARLEE FITZPATRICK [facility] Comment on above: Chronic back pain, u nspecified back location, unspecified back pain laterality (Primary Dx) Start: 06-11-2023 End: 06-11-2023 Emergency department patient visit Elisa Seng Gonzalo [facility] Start: 06-08-2023 End: 06-08-2023 Emergency department patient visit Allyson Nicole DO Work Phone: [facility] Start: 06-05-2023 End: 06-05-2023 ambulatory ELKE ADAMS [facility] Start: 06-05-2023 End: 06-05-2023 Office outpatient new 45 minutes Elke Adams MD Work Phone: [facility] Comment on above: Chronic back pain gr eater than 3 months duration (Primary Dx); Neuropathic pain Start: 06-03-2023 End: 06-03-2023 Emergency department patient visit Jorge Mcintosh [facility] Start: 06-01-2023 End: 06-01-2023 Emergency department patient visit TREASURY ANALYSTRadha Ferrell Work Phone: [facility] Work Phone: Start: 05-31-2023 End: 05-31-2023 Emergency department patient visit Jorge Mcintosh [facility] Start: 05-26-2023 End: 05-26-2023 Emergency department patient visit Pedro Pablo Fletcher [facility] Start: 05-25-2023 End: 05-25-2023 Emergency department patient visit ELIZABETH Ferrell Work Phone: [facility] Work Phone: Start: 05-24-2023 End: 05-24-2023 Emergency department patient visit Nikhil Tubbs [facility] Start: 05-20-2023 End: 05-20-2023 Office outpatient new 45 minutes Belkis [facility] DO Work Phone: [facility] Comment on above: [facility] arthritis (Prima ry Dx); Right wrist pain Start: 05-20-2023 End: 05-20-2023 ambulatory [facility] Start: 05-19-2023 End: 05-19-2023 Emergency department patient visit PHYSICIAN NO [facility] Work Phone: Start: 05-16-2023 End: 05-16-2023 Emergency department patient visit Nikhil Tubbs [facility] Start: 05-15-2023 End: 05-15-[address] [facility] Work Phone: Start: 05-15-2023 End: 05-15-2023 Patient encounter procedure PHYSICIAN NO [facility] Work Phone: Start: 05-14-2023 End: 05-14-2023 Emergency department patient visit Jorge Mcintosh [facility] Start: 05-12-2023 End: 05-12-2023 Emergency department patient visit Nikhil Tubbs [facility] Start: 05-11-2023 End: 05-11-2023 Emergency department patient visit Jorge Mcintosh [facility] Start: 05-08-2023 End: 05-08-2023 Emergency department patient visit Balbina Bryant [facility] Start: 05-05-2023 End: 05-05-2023 Emergency department patient visit PHYSICIAN NO [facility] Work Phone: Start: 05-04-2023 End: 05-04-2023 Emergency department patient visit Pedro Pablo Fletcher Facility:[facility] Start: 05-03-2023 End: 05-03-2023 Emergency department patient visit [facility] Start: 04-30-2023 End: 04-30-2023 Emergency department patient visit Jorge Mcintosh Facility:[facility] Start: 04-27-2023 End: 04-28-2023 Emergency department patient visit Sal Juarez MD Work Phone: [facility] Start: 04-26-2023 End: 04-26-2023 [facility] Annette [facility] Start: 04-22-2023 End: 04-22-2023 Emergency department patient visit Pedro Pablo Robin Fletcher [facility] Start: 04-19-2023 End: 04-19-2023 ambulatory [facility] Start: 04-12-2023 End: 04-12-2023 Emergency department patient visit [facility] Work Phone: Start: 04-11-2023 End: 04-11-2023 Emergency department patient visit Balbina Sparks Annette [facility] Start: 04-10-2023 End: 04-11-2023 Emergency department patient visit Pedro Pablo Robin Fletcher [facility] Start: 04-08-2023 End: 04-08-2023 Emergency department patient visit Dory Castañeda PA-C Facility:[facility] Start: 04-05-2023 End: 04-05-2023 Emergency department patient visit Nikhil Tubbs [facility] Start: 04-02-2023 End: 04-02-2023 Emergency department patient visit Elisa Sánchez [facility] Start: 04-01-2023 End: 04-01-2023 Office consultation new/estab patient 60 min Chidi Joseph MD Work Phone: [facility] Comment on above: Continuous opioid de pendence (CMS/HCC) (Primary Dx); Chronic hepatitis C without hepatic coma (CMS/HCC) Start: 04-01-2023 End: 04-01-2023 ambulatory [facility] Start: 03-29-2023 End: 03-29-2023 Emergency department patient visit ELIZABETH Veliz Work Phone: [facility] Work Phone: Start: 03-26-2023 End: 03-26-2023 Emergency department patient visit Jorge Mcintosh [facility] Start: 2023 End: 2023 Emergency department patient visit ELIZABETH Veliz Work Phone: [facility] Work Phone: Start: 03-23-2023 End: 03-23-2023 Emergency department patient visit Nikhil Tubbs [facility] Start: 03-20-2023 End: 03-20-2023 Emergency department patient visit Elisa Sánchez [facility] Start: 03-11-2023 End: 03-11-2023 Emergency department patient visit Balbina Bryant [facility] Start: 03-09-2023 End: 03-09-2023 Emergency department patient visit PHYSICIAN YENNI BLAIR [facility] Work Phone: Start: 02-22-2023 ambulatory Balbina Bryant Facility [facility] Start: 02-21-2023 End: 02-21-2023 Emergency department patient visit [facility] Work Phone: [facility] Work Phone: Start: 02-13-2023 End: 02-13-2023 Subsequent hospital visit by physician Dre Farmer [address] [place] [address] Comment on above: Chronic hepatitis C without hepatic coma (CMS/HCC) Start: 02-13-2023 End: 02-13-2023 ambulatory [facility] Start: 02-12-2023 End: 02-12-2023 Emergency department patient visit Pedro Pablo MiracleAdrien Fletcher [facility] Start: 02-08-2023 End: 02-08-2023 Emergency department patient visit [facility] Work Phone: [facility] Work Phone: Start: 02-07-2023 End: 02-07-2023 Emergency department patient visit Elisa Sánchez [facility] Start: 02-04-2023 End: 02-04-2023 Emergency department patient visit [facility] Work Phone: [facility] Work Phone: Start: 02-02-2023 End: 02-02-2023 Emergency department patient visit [facility] Work Phone: [facility] Work Phone: Start: 01-29-2023 End: 01-29-2023 Emergency department patient visit Jorge Mcintosh [facility] Start: 01-28-2023 End: 01-28-2023 ambulatory Joe Meza Other [facility] Other Start: 01-28-2023 Telephone encounter Joe Meza [facility] Waiter/Waitress Captain Start: 01-27-2023 End: 01-27-2023 Emergency department patient visit [facility] Work Phone: [facility] Work Phone: Start: 01-23-2023 End: 01-23-2023 Emergency department patient visit [facility] Work Phone: [facility] Work Phone: Start: 01-22-2023 End: 01-22-2023 Emergency department patient visit [facility] Bridger [facility] Start: 01-22-2023 End: 01-22-2023 Office outpatient new 30 minutes Jori Harman MD PhD Work Phone: [facility] Comment on above: Chronic low back marily n, unspecified back pain laterality, unspecified whether sciatica present (Primary Dx) Start: 01-15-2023 End: 01-15-2023 Office outpatient new 45 minutes Antonio Husain PA-C Work Phone: [facility] Comment on above: Encounter for screen ing mammogram for breast cancer (Primary Dx); Recurrent major depressive disorder, in full remission (CMS/HCC); Herniation of intervertebral disc between L4 and L5; Lumbar radiculopathy; Chronic hepatitis C without hepatic coma (CMS/HCC); Chronic, continuous use of opioids; Controlled substance agreement signed Start: 01-14-2023 End: 01-14-2023 Emergency department patient visit Jorge Mcintosh [facility] Start: 01-12-2023 End: 01-12-2023 [facility] Start: 01-12-2023 End: 01-12-2023 Emergency department patient visit [facility] Work Phone: [facility] Work Phone: Start: 01-11-2023 End: 01-11-2023 Emergency department patient visit [facility] Work Phone: [facility] Work Phone: Start: 01-10-2023 End: 01-10-2023 ambulatory Joe Derrick Other [facility] Other Start: 01-10-2023 Office outpatient vi sit 15 minutes Joe Meza [facility] Start: 01-10-2023 End: 01-10-2023 Emergency department patient visit Nikhil Tubbs [facility] Start: 01-07-2023 End: 01-07-2023 Emergency department patient visit [facility] Work Phone: [facility] Work Phone: Start: 01-04-2023 End: 01-05-2023 Emergency department patient visit Balbina Starreduard [facility] Start: 01-04-2023 End: 01-04-2023 Emergency department patient visit [facility] Work Phone: [facility] Work Phone: Start: 01-02-2023 End: 01-02-2023 Emergency department patient visit Nikhil Tubbs [facility] Start: 12-28-2022 End: 12-28-2022 Emergency department patient visit [facility] Work Phone: [facility] Work Phone: Start: 12-28-2022 End: 12-28-2022 Patient encounter procedure [facility] Work Phone: [facility] [place] Work Phone: Start: 12-27-2022 End: 12-27-2022 ambulatory Rose Marie Shepherd Other [facility] Other Start: 12-27-2022 Office outpatient vi sit 15 minutes Rose Marie Shepherd [facility] Start: 12-26-2022 End: 12-26-2022 Emergency department patient visit Balbina Bryant [facility] Start: 12-26-2022 End: 12-26-2022 ambulatory Glen Garza Other [facility] Other Start: 12-26-2022 Office outpatient vi sit 15 minutes Glen Garza [facility] Start: 12-24-2022 End: 12-24-2022 Emergency department patient visit Services Family [facility] Work Phone: [facility] Work Phone: Start: 12-23-2022 End: 12-23-2022 Emergency department patient visit Nikhil Tubbs [facility] Start: 12-21-2022 End: 12-21-2022 Emergency department patient visit [facility] Work Phone: [facility] Work Phone: Start: 12-18-2022 End: 12-18-2022 Emergency department patient visit Jorge Mcintosh [facility] Start: 12-14-2022 End: 12-14-2022 Emergency department patient visit [facility] Work Phone: [facility] Work Phone: Start: 12-13-2022 End: 12-13-2022 Emergency department patient visit Nikhil Tubbs [facility] Start: 12-12-2022 End: 12-13-2022 Emergency department patient visit Elisa Sánchez [facility] Start: 12-12-2022 (PROC) PROCEDURE Glen Garza [facility] Start: 12-12-2022 End: 12-12-2022 Admission to same day surgery center [facility] Work Phone: [facility] Work Phone: Start: 12-12-2022 End: 12-12-2022 ambulatory [facility] Work Phone: [facility] Work Phone: Start: 12-11-2022 End: 12-11-2022 Emergency department patient visit [facility] Work Phone: [facility] Work Phone: Start: 12-10-2022 End: 12-10-2022 Emergency department patient visit [facility] Work Phone: [facility] Work Phone: Start: 12-09-2022 End: 12-09-2022 Emergency department patient visit [facility] Work Phone: [facility] Work Phone: Start: 12-07-2022 End: 12-07-2022 Emergency department patient visit Chandana Varela [facility] Start: 12-07-2022 End: 12-07-2022 Emergency department patient visit [facility] Work Phone: [facility] Work Phone: Start: 12-04-2022 End: 12-04-2022 Emergency department patient visit Allyson Nicole DO Work Phone: [facility] Start: 11-29-2022 End: 11-29-2022 Emergency department patient visit [facility] Work Phone: [facility] Work Phone: Start: 11-28-2022 (PROC) PROCEDURE Glen Garza [facility] Start: 11-28-2022 End: 11-28-2022 Admission to same day surgery center [facility] Work Phone: [facility] Work Phone: Start: 11-28-2022 End: 11-28-2022 ambulatory [facility] Work Phone: [facility] Work Phone: Start: 11-19-2022 End: 11-19-2022 ambulatory Glen Garza Other [facility] Other Start: 11-19-2022 Office outpatient vi sit 25 minutes Glen Garza [facility] Start: 11-18-2022 End: 11-18-2022 Emergency department patient visit [facility] Work Phone: [facility] Work Phone: Start: 11-16-2022 End: 11-17-2022 Emergency department patient visit [facility] Work Phone: [facility] Work Phone: Start: 11-15-2022 End: 11-15-2022 Emergency department patient visit [facility] Work Phone: [facility] Work Phone: Start: 11-12-2022 End: 11-12-2022 Emergency department patient visit [facility] Work Phone: [facility] Work Phone: Start: 11-11-2022 End: 11-11-2022 Emergency department patient visit [facility] Work Phone: [facility] Work Phone: Start: 11-08-2022 End: 11-08-2022 Emergency department patient visit [facility] Work Phone: [facility] Work Phone: Start: 11-06-2022 Office outpatient vi sit 15 minutes Rose Marie Shepherd [facility] Start: 11-06-2022 End: 11-06-2022 ambulatory [facility] Work Phone: [facility] Work Phone: Start: 11-06-2022 End: 11-06-2022 Patient encounter procedure [facility] Work Phone: [facility] [place] Work Phone: Start: 11-05-2022 End: 11-05-2022 Emergency department patient visit MD RASHAD MCKEON Facility:[id number] Start: 11-01-2022 End: 11-01-2022 Emergency department patient visit [facility] Work Phone: [facility] Work Phone: Start: 10-31-2022 End: 10-31-2022 ambulatory [facility] Work Phone: [facility] Work Phone: Start: 10-31-2022 End: 10-31-2022 Patient encounter procedure [facility] Work Phone: [facility] [place] Work Phone: Start: 10-25-2022 End: 10-26-2022 Emergency department patient visit [facility] Work Phone: [facility] Work Phone: Start: 10-23-2022 End: 10-23-2022 Emergency department patient visit [facility] Work Phone: [facility] Work Phone: Start: 10-16-2022 End: 10-16-2022 Emergency department patient visit [facility] Work Phone: [facility] Work Phone: Start: 10-11-2022 End: 10-11-2022 Emergency department patient visit [facility] Work Phone: [facility] Work Phone: Start: 10-07-2022 End: 10-07-2022 Emergency department patient visit [facility] Work Phone: [facility] Work Phone: Start: 10-04-2022 End: 10-04-2022 Emergency department patient visit [facility] Work Phone: [facility] Work Phone: Start: 10-02-2022 End: 10-02-2022 Emergency department patient visit [facility] Work Phone: [facility] Work Phone: Start: 09-28-2022 End: 09-28-2022 Emergency department patient visit [facility] Work Phone: [facility] Work Phone: Start: 09-26-2022 End: 09-26-2022 ambulatory Glen Garza Other [facility] Other Start: 09-26-2022 Office outpatient vi sit 15 minutes Glen Garza [facility] Start: 09-24-2022 End: 09-24-2022 Emergency department patient visit [facility] Work Phone: [facility] Work Phone: Start: 09-22-2022 End: 09-22-2022 Emergency department patient visit [facility] Work Phone: [facility] Work Phone: Start: 09-19-2022 (PROC) PROCEDURE Glen Vela [facility] Start: 09-19-2022 End: 09-19-2022 Admission to same day surgery center [facility] Work Phone: [facility] Work Phone: Start: 09-19-2022 End: 09-19-2022 ambulatory [facility] Work Phone: [facility] Other Start: 09-18-2022 End: 09-18-2022 Emergency department patient visit [facility] Work Phone: [facility] Work Phone: Start: 09-11-2022 End: 09-11-2022 ambulatory Rose Marie Shepherd Other [facility] [employer] Other Start: 09-11-2022 Telephone encounter Rose Marie Shepherd [facility] Start: 09-11-2022 End: 09-11-2022 Emergency department patient visit [facility] Work Phone: [facility] Work Phone: Start: 09-10-2022 End: 09-10-2022 Patient encounter procedure [facility] Work Phone: [facility] Work Phone: Start: 09-06-2022 End: 09-06-2022 Discharged Recurring [facility] Work Phone: [facility] [place] Start: 09-05-2022 End: 09-05-2022 Emergency department patient visit [facility] Work Phone: [facility] Work Phone: Start: 09-04-2022 End: 09-04-2022 Emergency department patient visit Pedro Pablo Fletcher [facility] Start: 09-04-2022 End: 09-04-2022 ambulatory Glen Garza Other [employer] Other Start: 09-04-2022 Office consultation new/estab patient 60 min Glentito Garza [facility] Start: 09-04-2022 Telephone encounter Glentito Garza [facility] Waiter/Waitress Captain Start: 09-01-2022 End: 09-01-2022 Emergency department patient visit [facility] Work Phone: [facility] Work Phone: Start: 08-31-2022 End: 08-31-2022 Emergency department patient visit [facility] Work Phone: [facility] Work Phone: Start: 08-27-2022 End: 08-27-2022 ambulatory Rose Marie Shepherd Other [place] [facility] Other Start: 08-27-2022 Telephone encounter Rose Marie Shepherd [facility] Neurosurgery Start: 08-26-2022 End: 08-26-2022 Emergency department patient visit [facility] Work Phone: [facility] Work Phone: Start: 08-21-2022 End: 08-21-2022 ambulatory Rose Marie Shepherd Other [place] [facility] Other Start: 08-21-2022 Office outpatient ne w 45 minutes Rose Marie Shepherd [facility] Neurosurgery Start: 08-16-2022 End: 08-17-2022 Emergency department patient visit [facility] Work Phone: [facility] Work Phone: Start: 08-13-2022 End: 08-13-2022 Emergency department patient visit [facility] Work Phone: [facility] Work Phone: Start: 08-09-2022 End: 08-09-2022 Patient encounter procedure [facility] Work Phone: [facility] [place] Work Phone: Start: 08-06-2022 End: 08-06-2022 Emergency department patient visit [facility] Work Phone: [facility] Work Phone: Start: 08-02-2022 End: 08-02-2022 Emergency department patient visit [facility] Work Phone: [facility] Work Phone: Start: 06-16-2022 End: 06-16-2022 Emergency department patient visit [facility] Work Phone: [facility] Work Phone: Start: 03-30-2022 End: 03-30-2022 Admission to same day surgery center [facility] Work Phone: [facility] Work Phone: Start: 03-22-2022 End: 03-22-2022 ambulatory Keke Skaggs Other [place] [facility] Other Start: 03-22-2022 Telephone encounter Keke Small [facility] Gastroenterology Start: 03-19-2022 End: 03-19-2022 Emergency department patient visit [facility] Work Phone: [facility] Work Phone: Start: 03-17-2022 End: 03-17-2022 Emergency department patient visit [facility] Work Phone: [facility] Work Phone: Start: 03-14-2022 End: 03-14-2022 Emergency department patient visit [facility] Work Phone: [facility] Start: 02-03-2022 End: 02-03-2022 Emergency department patient visit [facility] Work Phone: [facility] Start: 01-21-2022 End: 01-21-2022 Emergency department patient visit [facility] Work Phone: [facility] Start: 01-10-2022 End: 01-10-2022 Patient encounter procedure Oscar SALAM [facility] Start: 12-20-2021 End: 12-20-2021 ambulatory [facility] Work Phone: [facility] Work Phone: Start: 12-20-2021 End: 12-20-2021 Patient encounter procedure [facility] Work Phone: [facility] [place] Start: 11-13-2021 End: 11-14-2021 Emergency department patient visit [facility] Work Phone: [facility] Start: 10-30-2021 End: 10-30-2021 Patient encounter procedure [facility] Work Phone: [facility] [place] Start: 10-18-2021 End: 10-18-2021 Emergency department patient visit [facility] Work Phone: [facility] Start: 10-15-2021 End: 10-15-[address] DOCTOR MISC Facility:[facility] Start: 10-09-2021 End: 10-10-2021 Emergency department patient visit [facility] Work Phone: [facility] Start: 09-19-2021 End: 09-19-2021 Patient encounter procedure [facility] Work Phone: [facility] [place] Start: 09-13-2021 End: 09-14-2021 ambulatory ALMAS MITCHEL Facility:[facility] Start: 09-13-2021 End: 09-13-2021 Emergency department patient visit [facility] Work Phone: [facility] Start: 06-21-2021 End: 06-21-2021 Lab Drop off Dagoberto Romero [facility] Start: 04-18-2021 (Procedure) Short Avery Goodman [facility] Start: 04-18-2021 End: 04-18-2021 ambulatory Avery Goodman Other [email or web address] Other Start: 03-30-2021 End: 03-30-2021 ambulatory Avery Goodman Other [email or web address] Other Start: 03-30-2021 Office consultation new/estab patient 60 min Avery Goodman [facility] Start: 02-15-2021 End: 02-15-2021 ambulatory Jd Malone Other [email or web address] Other Start: 02-15-2021 Office outpatient vi sit 15 minutes Jd Malone [facility] Procedures Date Procedure Procedure Detail Performing Clinician Start: 02-06-2024 PULSE OXIMETRY, CONTINUOUS Gavin hagen MD Work Phone: Start: 02-06-2024 Fluoroscopy up to 1 hour physician/qhp time Judah Woodard MD Work Phone: Start: 02-06-2024 VERAB/VERIFY ABORH Brock Agudelo MD Work Phone: Start: 02-06-2024 Blood typing serologic rh (d) Brock chen MD Work Phone: Start: 01-26-2024 Blood count complete auto&auto difrntl wbc aRyshawn Fischer PA-C Work Phone: Start: 01-26-2024 Comprehensive metabolic panel Rayshawn chen PAYuval Work Phone: Start: 01-10-2024 Mri spinal canal lumbar w/o contrast material Germaine VIEYRAC Work Phone: Start: 01-08-2024 Basic metabolic panel calcium total Jose Gallo 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 Work Phone: Start: 01-08-2024 EXTRA TUBES Shelton Goudiaby DO Work Phone: Start: 01-08-2024 LAVENDER TOP Shelton Goudiaby DO Work Phone: Start: 01-07-2024 Basic metabolic panel calcium total Jose Gallo 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 Work Phone: Start: 01-06-2024 Comprehensive metabolic panel Ace lewis MD Work Phone: Start: 01-04-2024 Basic metabolic panel calcium total Shelton Jaramilloudiaby DO Work Phone: Start: 01-03-2024 Basic metabolic panel calcium total Jazmyn Ohara 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 Work Phone: Start: 01-02-2024 Radex spine lumbosacral only bending 2/3 views Rashad Christiansen MD Work Phone: Start: 01-02-2024 Basic metabolic panel calcium total Simon Dominguez MD Work Phone: Start: 01-01-2024 Mri spinal canal lumbar w/o & w/contr matrl Michele Lion 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 Work Phone: Start: 01-01-2024 C-reactive protein Michele Lion 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 Work Phone: Start: 01-01-2024 Comprehensive metabolic panel Michele Lion 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 Work Phone: Start: 12-04-2023 Ct lumbar spine w/contrast material Nighat Bailey PA-C Work Phone: Start: 12-02-2023 Duplex scan of lower limb veins Services [facility] Work Phone: Start: 12-01-2023 Computed tomography of abdomen and pelvis with contrast Services [facility] Work Phone: Start: 11-26-2023 Microscopic urinalysis No PCP Start: 11-10-2023 Blood culture for bacteria, including anaerobic screen [facility] Phone: Start: 10-30-2023 Mri spinal canal lumbar w/o & w/contr matrl Gabbi Corbinus PA-C Work Phone: Start: 10-30-2023 Radiologic exam abdomen 1 view Gabbi Corbinus PA-C Work Phone: Start: 10-30-2023 Basic metabolic panel calcium total Gabbi Corbinus PA-C Work Phone: Start: 10-30-2023 C-reactive protein Gabbi Corbinus PA-C Work Phone: Start: 10-19-2023 Blood culture for bacteria, including anaerobic screen [facility] Phone: Start: 10-19-2023 SARS-CoV-2, Influenza & RSV (PCR) Services [facility] Work Phone: Start: 10-19-2023 Plain chest X-ray Services [facility] Work Phone: Start: 10-05-2023 Computed tomography of abdomen and pelvis with contrast [facility] Phone: Start: 10-05-2023 Plain chest X-ray Services [facility] Work Phone: Start: 10-05-2023 Bacteria identified in Urine by Culture [facility] Phone: Start: 10-05-2023 Blood culture for bacteria, including anaerobic screen [facility] [employer] Phone: Start: 10-05-2023 Urine culture Services [facility] Work Phone: Start: 08-21-2023 XR tomography Unspecified body region Tiff Story MD Work Phone: Start: 08-21-2023 PULSE OXIMETRY, CONTINUOUS Joe miller MD Work Phone: Start: 08-21-2023 VERAB/VERIFY ABORH Elke Adams MD Work Phone: Start: 08-21-2023 PULSE OXIMETRY, SPOT Chirag Garcia Amor fam 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 Work Phone: Start: 08-02-2023 EXTRA URINE CASTRO TUBE CHIDIKARINA JOSEPH Start: 08-02-2023 URINALYSIS WITH REFLEX CULTURE AND MICROSCOPIC CHIDIKARINA MORRISM Start: 08-02-2023 Basic metabolic 2000 panel - Serum or Plasma CHIDI GHOLAM Start: 08-02-2023 CBC panel - Blood by Automated count CHIDIKARINA MORRISM Start: 08-02-2023 COAGULATION SCREEN CHIDI GHOLAM Start: 08-02-2023 STAPHYLOCOCCUS AUREUS/MRSA COLONIZATION, CULTURE CHIDI GHOLAM Start: 08-02-2023 TYPE AND SCREEN CHIDI GHOLAM Start: 08-02-2023 REQUEST FOR PRE-ADMISSION TESTING VISIT [...] DO Work Phone: Start: 04-19-2023 LIVER ELASTOGRAPHY CHIDIKARINA MORRISWendy Start: 04-12-2023 Plain X-ray of left shoulder Start: 04-01-2023 [id number] CHIDI JADIELSALO Start: 04-01-2023 ALPHA-FETOPROTEIN CHIDI JADIELOLAM Start: 04-01-2023 BEATRIZ-WITH REFLEX TO JESUS CHIDI JADIELOLAWendy Start: 04-01-2023 ANTI-MITOCHONDRIAL ANTIBODY CHIDI MORRIS M Start: 04-01-2023 ANTI-SMOOTH MUSCLE ANTIBODY CHIDI Nguyen Start: 04-01-2023 Bilirubin.indirect [Mass/volume] in Serum or Plasma CHIDI JOSEPH Start: 04-01-2023 CBC W Auto Differential panel - Blood CHIDI JOSEPH Start: 04-01-2023 CERULOPLASMIN CHIDI JOSEPH Start: 04-01-2023 Comprehensive metabolic 2000 panel - Serum or Plasma CHIDI JOSEPH Start: 04-01-2023 Ferritin [Mass/volume] in Serum or Plasma CHIDI JOSEPH Start: 04-01-2023 HCV PCR WITH GENOTYPE REFLEX CHIDI DUVALLOL AM Start: 04-01-2023 HEPATITIS A ANTIBODY, TOTAL CHIDI MORRIS M Start: 04-01-2023 HEPATITIS B CORE ANTIBODY, TOTAL CHIDI MORRISM Start: 04-01-2023 HEPATITIS B SURFACE ANTIBODY CHIDI DUVALLOL AM Start: 04-01-2023 HEPATITIS B SURFACE ANTIGEN CHIDI MORRIS Start: 04-01-2023 HEPATITIS C GENOTYPE CHIDI MORRIS Start: 04-01-2023 HIV 1/2 ANTIGEN/ANTIBODY SCREEN WIH REFLEX TO CONFIRMATION CHIDI MORRIS Start: 04-01-2023 IRON AND TIBC CHIDI JOSEPH Start: 04-01-2023 PHOSPHATIDYLETHANOL (PETH), WHOLE BLOOD, QUANTITATIVE CHIDI JOSEPH Start: 04-01-2023 PROTIME-INR CHIDI MORRIS Start: 02-13-2023 US ABDOMEN LIMITED LIVER HARMOHINDER DHI LLON Start: 02-13-2023 Us abdominal real time w/image limited Antonio Husain PA-C Work Phone: Start: 12-28-2022 X-ray of lumbar spine, six views including bending views [facility] Phone: Start: 12-12-2022 Injection of spinal epidural space [facility] Phone: Start: 12-09-2022 X-ray of lumbar spine, four or more views [facility] Phone: Start: 11-28-2022 Injection of spinal epidural space [facility] Phone: Start: 11-17-2022 X-ray of lumbar spine, two or three views [facility] Phone: Start: 11-06-2022 Plain X-ray of left hip [facility] Phone: Start: 10-31-2022 MR lumbar spine wo con Services [facility] [facility] Work Phone: Start: 10-16-2022 CT of lumbar spine without contrast Services [facility] Phone: Start: 09-19-2022 Injection of local anesthetic into sacroiliac joint [facility] Phone: Start: 09-11-2022 X-ray of lumbar spine, four or more views [facility] Phone: Start: 09-10-2022 Dual energy X-ray absorptiometry Services [employer] Phone: Start: 08-09-2022 X-ray of lumbar spine, six views including bending views [facility] Phone: Start: 03-30-2022 End: 03-30-2022 Colonoscopy Services [facility] Work Phone: Start: 03-19-2022 CT of abdomen and pelvis without contrast Services [facility] Phone: Start: 03-19-2022 SARS-CoV-2, Influenza & RSV (PCR) Services [employer] Phone: Start: 03-14-2022 Computed tomography of abdomen and pelvis with contrast [facility] Phone: Start: 03-14-2022 Screening for occult blood in feces Services [employer] Phone: Start: 02-03-2022 CT of abdomen and pelvis without contrast Services [employer] Phone: Start: 02-03-2022 Urine culture Services [facility] Work Phone: Start: 12-20-2021 Plain X-ray of left shoulder Services [facility] Work Phone: Start: 11-13-2021 Computed tomography of abdomen and pelvis with contrast Services [employer] Phone: Start: 10-18-2021 Plain chest X-ray Services [facility] Work Phone: Start: 10-09-2021 Computed tomography of abdomen and pelvis with contrast Services [facility] Work Phone: Start: 03-25-2010 Hysterectomy Cheyanne Rosas History of cholecystectomy L annette Skaggs Other History of cholecystectomy E marcos Rosas Hysterectomy Dagoberto Romero Hysterectomy Cheyanne Rosas lap x 7 Dagoberto Romero Tonillectomy with adenoids N jewell Romero Urine culture Services [facility] Work Phone: Plan of Treatment Date Care Activity Detail Author Start: 2037 RSV patients and/or patients aged 60+ years (1 - 1-dose 60+ series) RSV patients and/or patients aged 60+ years (1 - 1-dose 60+ series) [facility] Start: 03-30-2032 Screening for malignant neoplasm of colon [facility] Start: 2027 Zoster Vaccines (1 of 2) Zoster Vaccines (1 of 2) [facility] Start: 12-23-2024 End: 12-23-2024 US Liver limited US abdomen limited liver Imaging Routine 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 Hepatic fibrosis, advanced fibrosis Expected: 12/23/2024 (Approximate), Expires: 12/23/2024 [facility] Work Phone: Comment on above: Expected: 12/23/2024 (Approximate), Expi res: 12/23/2024 Start: 06-29-2024 End: 06-29-2024 Patient encounter procedure 06/29/2024 8:00 AM EDT Office Visit [facility] [address] [facility] [address] [place] [address] [place] [address] Department of Medicine[place] [address] [facility] Start: 06-23-2024 End: 12-23-2024 US Liver limited US abdomen limited liver Imaging Routine 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 Hepatic fibrosis, advanced fibrosis Expected: 06/23/2024 (Approximate), Expires: 12/23/2024 [facility] Service Area Work Phone: Comment on above: Expected: 06/23/2024 (Approximate), Expi res: 12/23/2024 Start: 03-10-2024 End: 03-10-2024 Patient encounter procedure 03/10/2024 2:15 PM EST Office Visit Williamphoenix Carvalho [address] [facility] [address] [place] [address] [place] [address] Department [place] [address] William Yayajesu [facility] Start: 02-25-2024 End: 02-25-2024 Patient encounter procedure 02/25/2024 11:00 AM EST Office Visit [facility] [address] [phone] Marlee Fitzpatrick MD [address] [address] [facility] Start: 02-06-2024 End: 02-06-2024 Anesthesia consultation 02/06/2024 1:50 PM EST [place]esthesia [place] [address] [place] [address] Sherron Cohen RN [facility] [place] Start: 02-06-2024 End: 02-06-2024 Admission to same day surgery center [facility] [place] Comment on above: DISCECTOMY POSTERIOR LUMBAR LEFT L4-5 CT NIMALLY INVASIVE [11399 (CPT )] Start: 02-06-2024 End: 02-06-2024 Lamnotmy incl w/dcmprsn nrv root 1 intrspc lumbr [facility] Start: 02-06-2024 Subsequent hospital visit by physician [facility] [place] Start: 02-04-2024 End: 02-04-2024 Patient encounter procedure 02/04/2024 3:30 PM EST Office Visit [address] [place] [phone] Dino Melgoza MD [address] [place] [address], [address] [place] [address] [facility] Start: 01-30-2024 End: 01-30-2024 Patient encounter procedure 01/30/2024 9:00 AM EST Office Visit [address] [place] [phone] Iveth Burger, 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 [address] [place] [address] [facility] Start: 01-29-2024 End: 01-29-2024 Patient encounter procedure 01/29/2024 12:20 PM EST Office Visit [facility] [address] [phone] Marlee Fitzpatrick MD [address] [address] [facility] Start: 01-29-2024 End: 01-29-2024 Admission to establishment 01/29/2024 11:00 AM EST Pre-Admission Testing [facility] [address] [place] [phone] [facility] Start: 01-23-2024 End: 01-23-2024 Admission to establishment 01/23/2024 9:30 AM EDT Pre-Admission Testing [facility] [address] [place] [phone] [facility] Start: 01-21-2024 End: 01-20-2025 Request for Pre-Admission Testing Visit Request for Pre-Admission Testing Visit Procedures Routine Lumbar disc herniation with radiculopathy Expected: 01/21/2024 (Approximate), Expires: 01/20/2025 [facility] Service Area Work Phone: Comment on above: Expected: 01/21/2024 (Approximate), Expi res: 01/20/2025 Start: 01-17-2024 End: 01-17-2024 Patient encounter procedure 01/17/2024 9:20 AM EDT Office Visit [facility] [address] [facility] [address] [place] [phone] Marlee Fitzpatrick MD [address] [facility] [address] [place] [address] [facility] Start: 01-14-2024 End: 01-14-2024 Patient encounter procedure 01/14/2024 1:00 PM EDT Office Visit William Carvalho [address] [facility] [address] [place] [phone] [place] [address] Department [place] [address] William Carvalho Start: 01-06-2024 End: 01-06-2024 Patient encounter procedure 01/06/2024 8:00 AM EDT Office [facility] [address] [address] [facility] [address] [place] [phone] [place] [address] [place] [address] [facility] Start: 12-27-2023 End: 12-27-2023 Patient encounter procedure 12/27/2023 2:00 PM EDT Office Visit Williamphoenix Serra Maia [address] [phone] [place] [address] Department [place] [address] William Thomasili Start: 12-02-2023 Duplex scan of lower limb veins US venous duplex LE RT [facility] Start: 12-02-2023 US Lower extremity vein - right [facility] Start: 12-01-2023 Computed tomography of abdomen and pelvis with contrast CT abdomen pelvis w con [facility] Start: 12-01-2023 CT Abdomen and Pelvis W contrast IV [facility] Start: 11-26-2023 Computerized axial tomography of lumbar spine with contrast [facility] Start: 11-24-2023 COVID-19 Vaccine ( season) COVID-19 Vaccine ( season) [facility] Start: 11-24-2023 COVID-19 Vaccine ( season) COVID-19 Vaccine ( season) [facility] Start: 11-24-2023 COVID-19 Vaccines ( season) COVID-19 Vaccines ( season) [facility] Start: 11-24-2023 Influenza vaccination [facility] Start: 11-10-2023 Bacteria identified in Blood by Culture [facility] Start: 10-24-2023 Influenza vaccination [facility] Start: 10-24-2023 Refusal of treatment by patient [facility] Start: 10-19-2023 Bacteria identified in Blood by Culture [facility] Start: 10-05-2023 Bacteria identified in Blood by Culture [facility] Start: 10-05-2023 Bacteria identified in Urine by Culture [facility] Start: 08-27-2023 End: 08-27-2023 Patient encounter procedure 08/27/2023 1:00 PM EDT Office Visit [facility] [address] [facility] 5th [place] [phone] Chirag Reynoso, 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 [address] Department [place] [address] [facility] Start: 07-08-2023 End: 07-08-2023 Telemedicine consultation with patient 07/08/2023 10:00 AM EDT [facility] [address] [place] [address] [place] [address] [address] [facility] Department of Psychiat[place] [address] [facility] Start: 06-05-2023 End: 06-05-2023 Patient encounter procedure 06/05/2023 8:00 AM EDT Office Visit [facility] [address] [facility] [address] [place] [address] [place] [address] Department [place] [address] [facility] Start: 06-03-2023 End: 06-03-2023 Patient encounter procedure 06/03/2023 8:45 AM EDT Office Visit [address] [phone] Belkis Hernandez, DO [address] [facility], [address] [place] [address] [facility] Start: 05-24-2023 Hepatitis B vaccine (2 of 2 - CpG 2-dose series) Hepatitis B vaccine (2 of 2 - CpG 2-dose series) [facility] Start: 05-24-2023 Hepatitis B Vaccines (2 of 2 - CpG 2-dose series) Hepatitis B Vaccines (2 of 2 - CpG 2-dose series) [facility] Start: 05-20-2023 End: 05-20-2024 XR Wrist - right 3 Views [facility] Service Ar ea Work Phone: Comment on above: Expected: 05/20/2023, Expires: Start: 05-08-2023 End: 05-08-2023 Patient encounter procedure 05/08/2023 8:45 AM EST Office Visit [facility] [address] [facility] 5th [place] [address] [place] [address] [address] Department [place] [address] [facility] Start: 04-30-2023 End: 04-30-2023 Patient encounter procedure 04/30/2023 11:00 AM EST Office Visit [facility] [address] [place] [address] [place] [address] [address] [place] [address] [facility] Start: 04-17-2023 End: 04-17-2023 Patient encounter procedure 04/17/2023 1:10 PM EST Office Visit [facility] [address] [place] [phone] Antonio Husain PA-C [address] [facility] [place] [address] [facility] Start: 04-01-2023 End: 04-01-2024 Alpha 1 antitrypsin [Mass/volume] in Serum or Plasma by Nephelometry [facility] Work Phone: Comment on above: Expected: 04/01/2023 (Approximate), Expi res: 04/01/2024 Start: 04-01-2023 End: 04-01-2024 [id number] [Mass/volume] in Serum or Plasma [facility] Work Phone: Comment on above: Expected: 04/01/2023 (Approximate), Expi res: 04/01/2024 Start: 04-01-2023 End: 04-01-2024 Bilirubin.direct [Mass/volume] in Serum or Plasma [facility] Work Phone: Comment on above: Expected: 04/01/2023 (Approximate), Expi res: 04/01/2024 Start: 04-01-2023 End: 04-01-2024 CBC W Auto Differential panel - Blood [facility] Work Phone: Comment on above: Expected: 04/01/2023 (Approximate), Expi res: 04/01/2024 Start: 04-01-2023 End: 04-01-2024 Ceruloplasmin [Mass/volume] in Serum or Plasma [facility] Work Phone: Comment on above: Expected: 04/01/2023 (Approximate), Expi res: 04/01/2024 Start: 04-01-2023 End: 04-01-2024 Comprehensive metabolic 2000 panel - Serum or Plasma [facility] Work Phone: Comment on above: Expected: 04/01/2023 (Approximate), Expi res: 04/01/2024 Start: 04-01-2023 End: 04-01-2024 Ferritin [Mass/volume] in Serum or Plasma [facility] Work Phone: Comment on above: Expected: 04/01/2023 (Approximate), Expi res: 04/01/2024 Start: 04-01-2023 End: 04-01-2024 Hepatitis A virus Ab [Presence] in Serum by Immunoassay [facility] Work Phone: Comment on above: Expected: 04/01/2023 (Approximate), Expi res: 04/01/2024 Start: 04-01-2023 End: 04-01-2024 Hepatitis B virus core Ab [Presence] in Serum [facility] Work Phone: Comment on above: Expected: 04/01/2023 (Approximate), Expi res: 04/01/2024 Start: 04-01-2023 End: 04-01-2024 Hepatitis B virus surface Ab [Units/volume] in Serum [facility] Work Phone: Comment on above: Expected: 04/01/2023 (Approximate), Expi res: 04/01/2024 Start: 04-01-2023 End: 04-01-2024 Hepatitis B virus surface Ag [Presence] in Serum or Plasma by Immunoassay [facility] Work Phone: Comment on above: Expected: 04/01/2023 (Approximate), Expi res: 04/01/2024 Start: 04-01-2023 End: 04-01-2024 Hepatitis C virus RNA panel (viral load) in Serum or Plasma by LINDSEY with probe detection [facility] Work Phone: Comment on above: Expected: 04/01/2023 (Approximate), Expi res: 04/01/2024 Start: 04-01-2023 End: 04-01-2024 HIV 1+2 Ab+HIV1 p24 Ag [Presence] in Serum or Plasma by Immunoassay [facility] Work Phone: Comment on above: Expected: 04/01/2023 (Approximate), Expi res: 04/01/2024 Start: 04-01-2023 End: 04-01-2024 Iron and Iron binding capacity panel - Serum or Plasma [facility] Work Phone: Comment on above: Expected: 04/01/2023 (Approximate), Expi res: 04/01/2024 Start: 04-01-2023 End: 04-01-2024 Liver Elastography (Fibroscan) Liver Elastography (Fibroscan) GI Routine Chronic hepatitis C without hepatic coma (CMS/HCC) Expected: 04/01/2023 (Approximate), Expires: 04/01/2024 [facility] Work Phone: Comment on above: Expected: 04/01/2023 (Approximate), Expi res: 04/01/2024 Start: 04-01-2023 End: 04-01-2024 Mitochondria Ab [Presence] in Serum by Immunofluorescence [facility] Work Phone: Comment on above: Expected: 04/01/2023 (Approximate), Expi res: 04/01/2024 Start: 04-01-2023 End: 04-01-2024 Nuclear Ab [Presence] in Serum by Hep2 substrate [facility] Work Phone: Comment on above: Expected: 04/01/2023 (Approximate), Expi res: 04/01/2024 Start: 04-01-2023 End: 04-01-2024 Phosphatidylethanol (PEth), Whole Blood, Quantitative [facility] Work Phone: Comment on above: Expected: 04/01/2023 (Approximate), Expi res: 04/01/2024 Start: 04-01-2023 End: 04-01-2024 Prothrombin time (PT) [facility] Work Phone: Comment on above: Expected: 04/01/2023 (Approximate), Expi res: 04/01/2024 Start: 04-01-2023 End: 04-01-2024 Smooth muscle Ab [Presence] in Serum by Immunofluorescence [facility] Work Phone: Comment on above: Expected: 04/01/2023 (Approximate), Expi res: 04/01/2024 Start: 01-22-2023 End: 01-23-2024 XR Lumbar spine Views W flexion and W extension XR lumbar spine 4+ views w flexion extension Imaging Routine Chronic low back pain, unspecified back pain laterality, unspecified whether sciatica present Expected: 01/22/2023, Expires: 01/23/2024 [facility] Work Phone: Comment on above: Expected: 01/22/2023, Expires: Start: 01-22-2023 End: 01-22-2023 Patient encounter procedure 01/22/2023 1:30 PM EDT Office Visit [facility] [address] [place] [address] Jori Har[place] PhD [id number], [place] [phone] [facility] Start: 01-18-2023 End: 01-18-2023 Patient encounter procedure 01/18/2023 9:30 AM EDT Appointment [place] [id number] [place] [address] [facility] Start: 01-15-2023 End: 03-17-2024 DBT Breast - bilateral BI mammo bilateral screening tomosynthesis Imaging Routine Encounter for screening mammogram for breast cancer Expected: 01/15/2023, Expires: 03/17/2024 [facility] Work Phone: Comment on above: Expected: 01/15/2023, Expires: Start: 01-15-2023 End: 01-16-2024 Drugs of abuse screen W Reflex confirm panel - Urine [facility] Work Phone: Comment on above: Expected: 01/15/2023 (Approximate), Expi res: 01/16/2024 Start: 01-15-2023 End: 01-16-2024 Hepatitis C virus Ab [Presence] in Serum Hepatitis C Antibody Lab Routine Chronic hepatitis C without hepatic coma (CMS/HCC) Expected: 01/15/2023 (Approximate), Expires: 01/16/2024 [facility] Work Phone: Comment on above: Expected: 01/15/2023 (Approximate), Expi res: 01/16/2024 Start: 01-15-2023 End: 01-16-2024 Hepatitis C virus RNA panel (viral load) in Serum or Plasma by LINDSEY with probe detection Hepatitis C RNA, Quantitative, PCR Lab Routine Chronic hepatitis C without hepatic coma (CMS/HCC) Expected: 01/15/2023 (Approximate), Expires: 01/16/2024 [facility] Work Phone: Comment on above: Expected: 01/15/2023 (Approximate), Expi res: 01/16/2024 Start: 01-15-2023 End: 01-16-2024 US Liver limited US abdomen limited liver Imaging Routine Chronic hepatitis C without hepatic coma (CMS/HCC) Expected: 01/15/2023, Expires: 01/16/2024 [facility] Work Phone: Comment on above: Expected: 01/15/2023, Expires: Start: 12-12-2022 [facility] Start: 11-28-2022 [facility] Start: 11-23-2022 COVID-19 VACCINE () COVID-19 VACCINE () [facility] Start: 11-23-2022 Influenza vaccination Influenza Vaccine (#1) [facility] Start: 11-17-2022 X-ray of lumbar spine, two or three views XR lumbar spine 2-3V* [facility] Start: 11-17-2022 XR Lumbar spine 2 or 3 Views [facility] Start: 10-23-2022 Refusal of treatment by patient INFLUENZA VACCINE [facility] Start: 03-30-2022 [facility] Start: 2022 DIABETES SCREENING DIABETES SCREENING [facility] Start: 2022 Screening for malignant neoplasm of colon [facility] Start: 11-13-2021 Computed tomography of abdomen and pelvis with contrast CT abdomen pelvis w [facility] Start: 11-13-2021 End: 11-14-2021 Emergency department patient visit Departed [facility] Start: 10-30-2021 End: 10-30-2021 Patient encounter procedure Departed [facility] [place] Start: 08-28-2020 COVID-19 VACCINE (2 - Booster for Teddy series) COVID-19 VACCINE (2 - Booster for Teddy series) [facility] Start: 2017 Lipid panel Lipids [facility] Start: 2017 Screening for malignant neoplasm of breast [facility] Start: 2002 CERVICAL CANCER SCREENING CERVICAL CANCER SCREENING [facility] Start: 2002 COTEST / HPV COTEST / HPV [facility] Start: 2002 Screening for malignant neoplasm of cervix [facility] Start: 1999 DTaP/Tdap/Td Vaccines (1 - Tdap) DTaP/Tdap/Td Vaccines (1 - Tdap) [facility] Start: 1998 Microscopic observation [Identifier] in Cervix by Cyto stain PAP SMEAR [facility] Start: 1998 Screening for malignant neoplasm of cervix [facility] Start: 1996 DTaP/Tdap/Td vaccine (1 - Tdap) DTaP/Tdap/Td vaccine (1 - Tdap) [facility] Start: 1996 DTaP/Tdap/Td VACCINES (1 - Tdap) DTaP/Tdap/Td VACCINES (1 - Tdap) [facility] Start: 1996 Hepatitis A Vaccines (1 of 2 - Risk 2-dose series) Hepatitis A Vaccines (1 of 2 - Risk 2-dose series) [facility] Start: 1996 HEPATITIS B VACCINES (1 of 3 - 19+ 3-dose series) HEPATITIS B VACCINES (1 of 3 - 19+ 3-dose series) [facility] Start: 1995 BREAST CANCER SCREENING BREAST CANCER SCREENING [facility] Start: 1995 Diabetes mellitus screening Diabetes Screening [facility] Start: 1995 HEPATITIS C SCREENING HEPATITIS C SCREENING [facility] Start: 1995 Hepatitis C screening [facility] Start: 1995 Screening for malignant neoplasm of breast Breast Cancer Screening [facility] Start: 1992 HIV SCREENING HIV SCREENING [facility] Start: 1992 HIV screening [facility] Start: 1989 Depression Screen Depression Screen [facility] Start: 1983 Pneumococcal 0-64 years Vaccine (1 of 2 - PCV) Pneumococcal 0-64 years Vaccine (1 of 2 - PCV) [facility] Start: 1983 PNEUMOCOCCAL VACCINE: Pediatrics (0 to 5 Years) and At-Risk Patients (6 to 64 Years) (1 - PCV) PNEUMOCOCCAL VACCINE: Pediatrics (0 to 5 Years) and At-Risk Patients (6 to 64 Years) (1 - PCV) [facility] Start: 1983 PNEUMOCOCCAL VACCINE: Pediatrics (0 to 5 Years) and At-Risk Patients (6 to 64 Years) (1 of 2 - PCV) PNEUMOCOCCAL VACCINE: Pediatrics (0 to 5 Years) and At-Risk Patients (6 to 64 Years) (1 of 2 - PCV) [facility] Start: 1983 Pneumococcal Vaccines: Pediatrics (0 to 5 Years) and At-Risk Patients (6 to 64 Years) (1 of 2 - PCV) Pneumococcal Vaccines: Pediatrics (0 to 5 Years) and At-Risk Patients (6 to 64 Years) (1 of 2 - PCV) [facility] Start: 1980 ANNUAL PREVENTIVE PHYSICAL (INCLUDES MAAP) ANNUAL PREVENTIVE PHYSICAL (INCLUDES MAAP) [facility] Start: 1978 MMR Vaccines (1 of 1 - Standard series) MMR Vaccines (1 of 1 - Standard series) [facility] Start: 1977 COVID-19 Vaccine (#1) COVID-19 Vaccine (#1) [facility] Start: 1977 Colonoscopy Colonoscopy [facility] Start: 1977 COLORECTAL CANCER SCREENING COLORECTAL CANCER SCREENING [facility] Start: [address] Colonography [facility] Start: 1977 FIT-DNA (Cologuard) FIT-DNA (Cologuard) [facility] Start: 1977 FOBT/FIT FOBT/FIT [facility] Start: 1977 HEPATITIS B VACCINES (1 of 3 - 3-dose series) HEPATITIS B VACCINES (1 of 3 - 3-dose series) [facility] Start: 1977 HIV screening HIV Screening [facility] Start: 1977 Lipid panel Lipid Panel [facility] Start: 1977 Screening for malignant neoplasm of colon [facility] Start: 1977 Yearly Adult Physical Yearly Adult Physical [facility] End: 12-23-2024 [id number] [Mass/volume] in Serum or Plasma Alpha-Fetoprotein Lab Routine 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 Hepatic fibrosis, advanced fibrosis Every 6 months for 2 Occurrences starting 12/24/2023 until 12/23/2024 [facility] Work Phone: Comment on above: Every 6 months for 2 Occurrences startin g 12/24/2023 until 12/23/2024 Bacteria identified in Urine by Culture [facility] End: 01-06-2024 Basic metabolic 2000 panel - Serum or Plasma Basic Metabolic Panel Lab Routine Morning draw (Lab) for 3 Occurrences starting 01/04/2024 until 01/06/2024, 1 completed [facility] Work Phone: Comment on above: Morning draw (Lab) for 3 Occurrences sta rting 01/04/2024 until 01/06/2024, 1 completed End: 01-09-2024 Basic metabolic 2000 panel - Serum or Plasma Basic Metabolic Panel Lab Routine Morning draw (Lab) for 3 Occurrences starting 01/07/2024 until 01/09/2024, 2 completed [facility] Work Phone: Comment on above: Morning draw (Lab) for 3 Occurrences sta rting 01/07/2024 until 01/09/2024, 2 completed End: 12-23-2024 Bilirubin.direct [Mass/volume] in Serum or Plasma Bilirubin, Direct Lab Routine 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 Hepatic fibrosis, advanced fibrosis Every 6 months for 2 Occurrences starting 12/24/2023 until 12/23/2024 [facility] Work Phone: Comment on above: Every 6 months for 2 Occurrences startin g 12/24/2023 until 12/23/2024 End: 02-06-2024 Blood type and Indirect antibody screen panel - Blood Type And Screen Lab Timed As needed (Lab) until discontinued starting 02/06/2024 [facility] Work Phone: Comment on above: As needed (Lab) until discontinued start ing 02/06/2024 End: 01-06-2024 CBC panel - Blood by Automated count CBC Lab Routine Morning draw (Lab) for 3 Occurrences starting 01/04/2024 until 01/06/2024, 1 completed [facility] Work Phone: Comment on above: Morning draw (Lab) for 3 Occurrences sta rting 01/04/2024 until 01/06/2024, 1 completed End: 02-06-2024 Choriogonadotropin ( test) [Presence] in Urine POCT , urine Point of Care Testing Routine Once (Lab) for 1 Occurrences starting 02/06/2024 until 02/06/2024 [facility] Work Phone: Comment on above: Once (Lab) for 1 Occurrences starting until 02/06/2024 End: 12-23-2024 Comprehensive metabolic 2000 panel - Serum or Plasma Comprehensive Metabolic Panel Lab Routine 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 Hepatic fibrosis, advanced fibrosis Every 6 months for 2 Occurrences starting 12/24/2023 until 12/23/2024 [facility] Work Phone: Comment on above: Every 6 months for 2 Occurrences startin g 12/24/2023 until 12/23/2024 Electrocardiogram, 1 2-lead PRN ACS symptoms Electrocardiogram, 12-lead PRN ACS symptoms ECG Routine As needed until discontinued starting 01/01/2024 [facility] Work Phone: Comment on above: As needed until discontinued starting Electrocardiogram, 1 2-lead PRN ACS symptoms Electrocardiogram, 12-lead PRN ACS symptoms ECG Routine As needed until discontinued starting 01/06/2024 [facility] Work Phone: Comment on above: As needed until discontinued starting Electrocardiogram, 1 2-lead PRN ACS symptoms Electrocardiogram, 12-lead PRN ACS symptoms ECG Routine As needed until discontinued starting 01/27/2024 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 [facility] End: 06-23-2025 Liver Elastography (Fibroscan) Liver Elastography (Fibroscan) GI Routine 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 Hepatic fibrosis, advanced fibrosis 1 Occurrences starting 12/24/2023 until 06/23/2025 [facility] Work Phone: Comment on above: 1 Occurrences starting 12/24/2023 until 06/23/2025 MR Lumbar spine WO a nd W contrast IV MRI LUMBAR SPINE W WO CONTRAST Imaging STAT 10/30/2023 9:03 PM EDT [facility] Work Phone: Patient Education [facility] Work Phone: Patient referral [facility] Work Phone: End: 12-23-2024 Prothrombin time (PT) Protime-INR Lab Routine 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 Hepatic fibrosis, advanced fibrosis Every 6 months for 2 Occurrences starting 12/24/2023 until 12/23/2024 [facility] Work Phone: Comment on above: Every 6 months for 2 Occurrences startin g 12/24/2023 until 12/23/2024 End: 02-13-2023 Liver limited [facility] Work Phone: Comment on above: Once for 1 Occurrences starting 02/14/20 23 until 02/13/2023 Immunizations Immunization Date Immunization Notes Care Provider Fa cili 01-27-2024 flu vaccine trivalen t (PF) (Fluarix/Fluzone/Flulav al) 6 months or greater injection Giulia Man MD Work Phone: [facility] Work Phone: 04-26-2023 hepatitis B vaccine, adult dosage [facility] 07-03-2020 SARS-CoV-2 (COVID-19 ) Ad26 vaccine, recombinant Dax [facility] Payers Date Payer Category Payer Unknown [id number] 05-24-2023 Blue [employer] [place] plasencia Managed Care [facility] [id number] 05-24-2023 Unknown [id number] 07-16-2022 Blue Cross Blue Shield [id number] [id number] 04-25-2022 Medicaid [id number]. 1.13.129.2. 7.3.256233.315 04-25-2022 Unknown [id number]. 1.13.129.2. 7.3.374233.315 1977 Unknown [id number] 2.16.840.1.028253.3.579.2. 593 1977 Unknown [id number] 2.16.840.1.086044.3.579.2. 593 1977 Unknown [id number] 2.16.840.1.502801.3.579.2. 1069 1977 Unknown [id number] 2.16.840.1.538144.3.579.2. 176 1977 Unknown [id number] 2.16.840.1.524473.3.579.2. 176 1977 Unknown [id number] 2.16.840.1.903506.3.579.2. 727 1977 Unknown [id number] 2.16.840.1.940210.3.579.2. 727 1977 Unknown [id number] 2.16.840.1.042313.3.579.2. 727 1977 Unknown [id number] 2.16.840.1.735925.3.579.2. 727 1977 Unknown [id number] 2.16.840.1.007571.3.579.2. 727 1977 Unknown [id number] 2.16.840.1.542140.3.579.2. 727 1977 Unknown [id number] 2.16.840.1.852818.3.579.2. 718 1977 Unknown [id number] 2.16.840.1.461807.3.579.2. 718 1977 Unknown [id number] 2.16.840.1.539390.3.579.2. 718 1977 Unknown [id number] 2.16.840.1.794893.3.579.2. 718 1977 Unknown [id number] 2.16.840.1.376431.3.579.2. 718 1977 Unknown [id number] 2.16.840.1.910394.3.579.2. 196 1977 Unknown [id number] 2.16.840.1.506864.3.579.2. 196 1977 Unknown [id number] 2.16.840.1.075486.3.579.2. 196 1977 Unknown [id number] 2.16.840.1.581894.3.579.2. 196 1977 Unknown [id number] 2.16.840.1.375155.3.579.2. 1244 1977 Unknown [id number] 2.16.840.1.987907.3.579.2. 1244 1977 Unknown [id number] 2.16.840.1.545972.3.579.2. 1244 1977 Unknown [id number] 2.16.840.1.308444.3.579.2. 727 1977 Unknown [id number] 2.16.840.1.689087.3.579.2. 903 1977 Unknown [id number] 2.16.840.1.004957.3.579.2. 4 1977 Unknown [id number] 2.16.840.1.016240.3.579.2. 1242 1977 Unknown [id number] 2.16.840.1.391460.3.579.2. 1242 1977 Unknown [id number] 2.16.840.1.936883.3.579.2. 1242 1977 Unknown [id number] 2.16.840.1.029610.3.579.2. 1242 1977 Unknown [id number] 2.16.840.1.313878.3.579.2. 1242 1977 Unknown [id number] 2.16.840.1.225496.3.579.2. 1242 1977 Unknown [id number] 2.16.840.1.120646.3.579.2. 1242 1977 Unknown [id number] 2.16.840.1.645402.3.579.2. 1242 1977 Unknown [id number] 2.16.840.1.129098.3.579.2. 1242 1977 Unknown [id number] 2.16.840.1.423557.3.579.2. 1242 1977 Unknown [id number] 2.16.840.1.527034.3.579.2. 1242 1977 Unknown [id number] 2.16.840.1.071930.3.579.2. 1242 1977 Unknown [id number] 2.16.840.1.957759.3.579.2. 1241 1977 Unknown [id number] 2.16.840.1.281836.3.579.2. 1241 1977 Unknown [id number] 2.16.840.1.493279.3.579.2. 1241 1977 Unknown [id number] 2.16.840.1.591575.3.579.2 1977 Unknown [id number] 2.16.840.1.141671.3.579.2 1977 Unknown [id number] 2.16.840.1.375707.3.579.2 1977 Unknown [id number] 2.16.840.1.078014.3.579.2 1977 Unknown [id number] 2.16.840.1.882442.3.579. 1977 Unknown [id number] 2.16.840.1.907333.3.579. 1977 Unknown [id number] 2.16.840.1.016733.3.579. 1977 Unknown [id number] 2.16.840.1.797450.3.579. 1977 Unknown [id number] 2.16.840.1.536926.3.579. 1977 Unknown [id number] 2.16.840.1.231845.3.579. 1977 Unknown [id number] 2.16.840.1.136292.3.579.2 1977 Unknown [id number] 2.16.840.1.576702.3.579.2 1977 Unknown [id number] 2.16.840.1.375653.3.579.2 1977 Unknown [id number] 2.16.840.1.360115.3.579.2 1977 Unknown [id number] 2.16.840.1.028069.3.579.2 1977 Unknown [id number] 2.16.840.1.796309.3.579.2 1977 Unknown [id number] 2.16.840.1.100071.3.579.2 1977 Unknown [id number] 2.16.840.1.869008.3.579.2 1977 Unknown [id number] 2.16.840.1.073841.3.579.2 1977 Unknown [id number] 2.16.840.1.210293.3.579.2 1977 Unknown [id number] 2.16.840.1.835357.3.579.2 1977 Unknown [id number] 2.16.840.1.285171.3.579.2 1977 Unknown [id number] 2.16.840.1.828890.3.579.2 1977 Unknown [id number] 2.16.840.1.730631.3.579.2 1977 Unknown [id number] 2.16.840.1.449688.3.579.2 1977 Unknown [id number] 2.16.840.1.299844.3.579.2 1977 Unknown [id number] 2.16.840.1.102549.3.579.2 1977 Unknown [id number] 2.16.840.1.101252.3.579.2 1977 Unknown [id number] 2.16.840.1.572777.3.579.2 1977 Unknown [id number] 2.16.840.1.664156.3.579.2 1977 Unknown [id number] 2.16.840.1.573594.3.579.2 1977 Unknown [id number] 2.16.840.1.251331.3.579.2 1977 Unknown [id number] 2.16.840.1.614521.3.579.2 1977 Unknown [id number] 2.16.840.1.039084.3.579.2 1977 Unknown [id number] 2.16.840.1.571759.3.579.2 1977 Unknown [id number] 2.16.840.1.468639.3.579.2 1977 Unknown [id number] 2.16.840.1.232919.3.579.2 1977 Unknown [id number] 2.16.840.1.691186.3.579.2 1977 Unknown [id number] 2.16.840.1.696870.3.579.2 1977 Unknown [id number] 2.16.840.1.831743.3.579.2 1977 Unknown [id number] 2.16.840.1.025787.3.579.2 1977 Unknown [id number] 2.16.840.1.854126.3.579.2 1977 Unknown [id number] 2.16.840.1.560545.3.579.2 1977 Unknown [id number] 2.16.840.1.214330.3.579.2 1977 Unknown [id number] 2.16.840.1.878985.3.579.2 1977 Unknown [id number] 2.16.840.1.777778.3.579.2 1977 Unknown [id number] 2.16.840.1.981117.3.579.2 1977 Unknown [id number] 2.16.840.1.616313.3.579.2. 72 1977 Unknown [id number] 2.16.840.1.616182.3.579.2 1977 Unknown [id number] 2.16.840.1.661617.3.579.2 1977 Unknown [id number] 2.16.840.1.827857.3.579.2 1977 Unknown [id number] 2.16.840.1.760613.3.579.2 1977 Unknown [id number] 2.16.840.1.683307.3.579.2 1977 Unknown [id number] 2.16.840.1.815712.3.579.2 1977 Unknown [id number] 2.16.840.1.056446.3.579.2 1977 Unknown [id number] 2.16.840.1.616883.3.579.2 1977 Unknown [id number] 2.16.840.1.331443.3.579.2 1977 Unknown [id number] 2.16.840.1.086459.3.579.2 1977 Unknown [id number] 2.16.840.1.430852.3.579.2 1977 Unknown [id number] 2.16.840.1.551765.3.579.2 1977 Unknown [id number] 2.16.840.1.352068.3.579.2 1977 Unknown [id number] 2.16.840.1.261751.3.579.2 1977 Unknown [id number] 2.16.840.1.801920.3.579.2 1977 Unknown [id number] 2.16.840.1.471450.3.579.2. 727 1977 Unknown [id number] 2.16.840.1.491739.3.579.2. 727 1977 Unknown [id number] 2.16.840.1.420766.3.579.2. 1246 1977 Unknown [id number] 2.16.840.1.351198.3.579.2. 1245 1977 Unknown [id number] 2.16.840.1.066493.3.579.2. 1245 1977 Unknown [id number] 2.16.840.1.514997.3.579.2. 1245 1977 Unknown [id number] 2.16.840.1.152343.3.579.2. 1245 1977 Unknown [id number] 2.16.840.1.292022.3.579.2. 1244 1977 Unknown [id number] 2.16.840.1.507406.3.579.2. 1244 1977 Unknown [id number] 2.16.840.1.387042.3.579.2. 1244 1977 Unknown [id number] 2.16.840.1.310989.3.579.2. 1244 1977 Unknown [id number] 2.16.840.1.840646.3.579.2. 1244 1977 Unknown [id number] 2.16.840.1.141210.3.579.2. 1244 1977 Unknown [id number] 2.16.840.1.491566.3.579.2. 1244 1977 Unknown [id number] 2.16.840.1.971578.3.579.2. 1244 1977 Unknown [id number] 2.16.840.1.420221.3.579.2. 1244 1977 Unknown [id number] 2.16.840.1.209007.3.579.2. 1244 1977 Unknown [id number] 2.16.840.1.179185.3.579.2. 1244 1977 Unknown [id number] 2.16.840.1.784514.3.579.2. 1244 1977 Unknown [id number] 2.16.840.1.968276.3.579.2. 1244 1977 Unknown [id number] 2.16.840.1.086487.3.579.2. 1244 1977 Unknown [id number] 2.16.840.1.118649.3.579.2. 1244 1977 Unknown [id number] 2.16.840.1.614012.3.579.2. 1244 1977 Unknown [id number] 2.16.840.1.575851.3.579.2. 1244 1977 Unknown [id number] 2.16.840.1.717390.3.579.2. 1244 1977 Unknown [id number] 2.16.840.1.832074.3.579.2. 1244 1977 Unknown [id number] 2.16.840.1.964443.3.579.2. 1244 1977 Unknown [id number] 2.16.840.1.439936.3.579.2. 1244 1977 Unknown [id number] 2.16.840.1.826455.3.579.2. 1244 1977 Unknown [id number] 2.16.840.1.116094.3.579.2. 1244 1977 Unknown [id number] 2.16.840.1.065091.3.579.2. 1244 1977 Unknown [id number] 2.16.840.1.841301.3.579.2. 1244 1977 Unknown [id number] 2.16.840.1.343306.3.579.2. 1245 1977 Unknown [id number] 2.16.840.1.827099.3.579.2. 124 1977 Unknown [id number] 2.16.840.1.958511.3.579.2. 1245 1977 Unknown [id number] 2.16.840.1.410643.3.579.2. 124 1977 Unknown [id number] 2.16.840.1.498923.3.579.2. 124 1977 Unknown [id number] 2.16.840.1.080598.3.579.2. 727 1977 Unknown [id number] 2.16.840.1.621423.3.579.2. 727 1977 Unknown [id number] 2.16.840.1.569329.3.579.2. 727 1977 Unknown [id number] 2.16.840.1.712555.3.579.2. 727 1977 Unknown [id number] 2.16.840.1.069175.3.579.2. 727 1977 Unknown [id number] 2.16.840.1.540840.3.579.2. 727 1977 Unknown [id number] 2.16.840.1.408543.3.579.2. 727 1977 Unknown [id number] 2.16.840.1.760150.3.579.2. 1242 1977 Unknown [id number] 2.16.840.1.896221.3.579.2. 124 1977 Unknown [id number] 2.16.840.1.722337.3.579.2. 1242 1977 Unknown [id number] 2.16.840.1.118740.3.579.2. 1242 -31-1977 Unknown [id number] 2.16.840.1.901580.3.579.2. 1241 1977 Unknown [id number] 2.16.840.1.767766.3.579.2. 1241 1977 Unknown [id number] 2.16.840.1.480150.3.579.2. 1241 1977 Unknown [id number] 2.16.840.1.081644.3.579.2. 1241 1977 Unknown [id number] 2.16.840.1.150117.3.579.2. 1241 1977 Unknown [id number] 2.16.840.1.893876.3.579.2. 1241 1977 Unknown [id number] 2.16.840.1.076410.3.579.2. 1241 1977 Unknown [id number] 2.16.840.1.502055.3.579.2. 1241 1977 Unknown [id number] 2.16.840.1.794856.3.579.2. 1241 1977 Unknown [id number] 2.16.840.1.619670.3.579.2. 1241 1977 Unknown [id number] 2.16.840.1.641264.3.579.2. 1241 1977 Unknown [id number] 2.16.840.1.173653.3.579.2. 1241 1977 Unknown [id number] 2.16.840.1.110262.3.579.2. 1241 1977 Unknown [id number] 2.16.840.1.716993.3.579.2. 7 1977 Unknown [id number] 2.16.840.1.335570.3.579.2. 727 1977 Unknown [id number] 2.16.840.1.598090.3.579.2. 727 03-25-1957 Medicaid [id number] 03-25-1957 Self-pay [id number] Medicaid [id number] Private Health Insurance [id number] Private Health Insurance [employer] [id number] Unknown [id number] Unknown COVID19 [facility] nsured Fund [id number] Unknown [id number] 2.840.1.745982.3.579.2. 246 Unknown [id number] 2.840.1.242614.3.579.2. 246 Unknown [id number] 2.840.1.748548.3.579.2. 246 Unknown [id number] 2.840.1.764628.3.579.2. 246 Unknown [id number] 2.840.1.209194.3.579.2. 531 Unknown [id number] 2.840.1.596662.3.579.2. 531 Unknown [id number] 2.840.1.083124.3.579.2. 531 Unknown [id number] 2.16840.1.962310.3.579.2. 531 Unknown [id number] 2.16840.1.412702.3.579.2. 531 Unknown [id number] 2.16840.1.597883.3.579.2. 531 Unknown [id number] 2.16.840.1.883076.3.579.2. 531 Unknown [id number] 2.16.840.1.984389.3.579.2. 531 Unknown [id number] 2.16.840.1.703848.3.579.2. 531 Unknown [id number] 2.16.840.1.612091.3.579.2. 531 Unknown [id number] 2.16.840.1.248990.3.579.2. 531 Unknown [id number] 2.16.840.1.480542.3.579.2. 531 Unknown [id number] 2.16.840.1.554549.3.579.2. 531 Unknown [id number] 2.16.840.1.047817.3.579.2. 531 Unknown [id number] 2.16.840.1.344908.3.579.2. 531 Unknown [id number] 2.16.840.1.819632.3.579.2. 531 Unknown [id number] 2.16.840.1.652208.3.579.2. 531 Unknown [id number] 2.16.840.1.616908.3.579.2. 531 Unknown [id number] 2.16.840.1.719586.3.579.2. 531 Unknown [id number] 2.16.840.1.283788.3.579.2. 531 Unknown [id number] 2.16.840.1.008517.3.579.2. 531 Unknown [id number] 2.16.840.1.379477.3.579.2. 531 Social History Date Type Detail Facility Tobacco Current, Cigaret yolie, 10 per day. [email or web address] Other Comment on above: 10 cigs per day every day smoker Start: 01-15-2023 End: 01-28-2024 Sex Assigned At Female [email or web address] Other Start: 11-13-2021 End: 02-05-2024 Tobacco smoking status NHIS Smoker (finding) [facility] Start: 1975 Sex Assigned At Female F [facility] Tobacco smoking status No Smoking Status Entered [facility] Start: 03-25-1991 End: 11-05-2023 Tobacco smoking status MOIS Smokes tobacco daily [facility] Start: 03-25-1991 History of tobacco use Cigarette Smoker [facility] Start: 12-04-2022 End: 01-28-2024 Cigarettes smoked current (pack per day) - Reported 0.5 [facility] Start: 12-04-2022 End: 11-05-2023 Tobacco use and exposure Smokeless tobacco non-user [facility] Start: 1975 Sex Assigned At Not on file P [facility] Start: 12-21-2022 Tobacco smoking status NHIS Never smoked tobacco (finding) [facility] Start: 01-15-2023 Alcohol intake Ex-drinker (finding) [facility] Work Phone: Start: 01-05-2023 End: 02-09-2024 Exposure to SARS-CoV-2 (event) Not sure [facility] Start: 01-22-2023 End: 08-27-2023 Alcohol intake Current drinker of alcohol (finding) [facility] Work Phone: Start: 01-22-2023 Alcohol Comment Socially [facility] Work Phone: Start: 01-22-2023 End: 09-17-2023 Tobacco smoking status Heavy tobacco smoker (finding) [facility] Tobacco smoking status Never [facility] Start: 08-21-2023 Gender identity Identifies as female gender (finding) [facility] Work Phone: Start: 01-31-2014 End: 10-30-2023 Alcohol intake Current non-drinker of alcohol (finding) [employer] How often to you hav e a drink containing alcohol? Never [employer] Start: 11-26-2023 With Spouse/Significant Other With Spouse/Significant Other [facility] Start: 11-26-2023 Never Used Never Used [facility] Start: 11-26-2023 0 0 [facility] Start: 11-26-2023 Denies Use Denies Use [facility] Start: 11-26-2023 Citizen [place] Citizen [place] [facility] Start: 11-27-2023 End: 02-05-2024 Sex Female (finding) [facility] Start: 12-24-2023 End: 02-09-2024 Alcoholic beverage intake Lifetime non-drinker (finding) [facility] Work Phone: Has the electric, gas, oil, or water Cap That threatened to shut off services in your home in past 12Mo No [facility] Are you now , , , , never or living with a partner? [facility] Work Phone: How hard is it for you to pay for the very basics like food, housing, medical care, and heating Not very hard [facility] Work Phone: Do you feel stress - tense, restless, nervous, or anxious, or unable to sleep at night because your mind is troubled all the time - these days [OSQ] Not at all [facility] Work Phone: (I/We) worried whether (my/our) food would run out before (I/we) got money to buy more. Never true [facility] Work Phone: NEGATED: Highlighted row [facility] Medical Equipment Procedure Code Equipment Code Equipment Origin al Text Equipment Identifier Dates Lead, Octrode - [id number] - [id number] Start: 08-21-2023 Eterna Implantab le Pulse Generator [id number] Start: 09-23-2023 Comment on above: Description: System cost includes: Generator - [id number] Copier Operator - [id number] Copier Operator Kit, Lumbar - [id number] Patient Magnet - 1210 Eterna Manual with [facility] - 91526 Patient Controller - [id number] Lead, Octrode 60 cm - [id number] - [id number] Start: 09-23-2023 LeadKellee 60 cm - [id number] - [id number] Start: 09-23-2023 LeadJosuérodjazmine 60 cm - [id number] - [id number] Start: 09-23-2023 Goals Date Patient Goal Desired Activity /State Functional Status Date Assessment Result Facility 02-20-2024 Functional Status N/A [facility] 02-16-2024 Functional Status N/A [facility] 02-14-2024 Functional Status N/A [facility] 02-04-2024 Functional Status N/A [facility] 01-25-2024 Functional Status N/A [facility] 01-23-2024 Functional Status N/A [facility] 01-14-2024 Functional Status N/A [facility] 01-06-2024 Functional Status N/A [facility] 01-03-2024 Are you deaf, or do you have serious difficulty hearing No 01/03/2024 3:34 PM Fozia Hernandez, DARSHAN No [facility] Work Phone: 01-03-2024 Are you blind, or do you have serious difficulty seeing, even when wearing glasses No 01/03/2024 3:34 PM Fozia Hernandez, RN No [facility] Work Phone: 01-03-2024 Do you have serious difficulty walking or climbing stairs Yes 01/03/2024 3:34 PM Fozia Hernandez, RN Yes [facility] Work Phone: 01-03-2024 Do you have difficul ty dressing or bathing No 01/03/2024 3:34 PM Fozia Hernandez, RN No [facility] Work Phone: 01-03-2024 Because of a physica l, mental, or emotional condition, do you have difficulty doing errands alone such as visiting a physician's office or shopping No 01/03/2024 3:34 PM EDT Fozia Daly, DARSHAN No [facility] Work Phone: 12-26-2023 Functional Status N/A [facility] 12-24-2023 Functional Status N/A [facility] 12-13-2023 Functional Status N/A [facility] 12-01-2023 Functional Status N/A [facility] 11-27-2023 Functional Status N/A [facility] 11-24-2023 Functional Status N/A [facility] 11-05-2023 Functional Status N/A [facility] 10-30-2023 Functional Status N/A [facility] 10-26-2023 Functional Status N/A [facility] 10-04-2023 Functional Status N/A [facility] 09-25-2023 Functional Status N/A [facility] 09-21-2023 Functional Status N/A [facility] 09-20-2023 Functional Status N/A [facility] 09-17-2023 Functional Status N/A [facility] 09-09-2023 Functional Status N/A [facility] 09-06-2023 Functional Status N/A [facility] 09-02-2023 Functional Status N/A [facility] 08-30-2023 Functional Status N/A [facility] 08-15-2023 Functional Status N/A [facility] 08-14-2023 Functional Status N/A [facility] 08-12-2023 Functional Status N/A [facility] 08-05-2023 Functional Status N/A [facility] 08-02-2023 Functional Status N/A [facility] 07-31-2023 Functional Status N/A [facility] 07-26-2023 Functional Status N/A [facility] 07-17-2023 Functional Status N/A [facility] 07-15-2023 Functional Status N/A [facility] 07-14-2023 Functional Status N/A [facility] 07-11-2023 Functional Status N/A [facility] 07-06-2023 Functional Status N/A [facility] 06-29-2023 Functional Status N/A [facility] 06-27-2023 Functional Status N/A [facility] 06-24-2023 Functional Status N/A [facility] 06-22-2023 Functional Status N/A [facility] 06-15-2023 Functional Status N/A [facility] 06-11-2023 Functional Status N/A [facility] 06-03-2023 Functional Status N/A [facility] 05-31-2023 Functional Status N/A [facility] 05-26-2023 Functional Status N/A [facility] 05-24-2023 Functional Status N/A [facility] 05-16-2023 Functional Status N/A [facility] 05-14-2023 Functional Status N/A [facility] 05-12-2023 Functional Status N/A [facility] 05-11-2023 Functional Status N/A [facility] 05-08-2023 Functional Status N/A [facility] 04-26-2023 Functional Status N/A [facility] 04-22-2023 Functional Status N/A [facility] 04-11-2023 Functional Status N/A [facility] 04-10-2023 Functional Status N/A [facility] 04-05-2023 Functional Status N/A [facility] 04-02-2023 Functional Status N/A [facility] 03-26-2023 Functional Status N/A [facility] 03-23-2023 Functional Status N/A [facility] 03-20-2023 Functional Status N/A [facility] 03-11-2023 Functional Status N/A [facility] 02-12-2023 Functional Status N/A [facility] 02-07-2023 Functional Status N/A [facility] 01-29-2023 Functional Status N/A [facility] 01-22-2023 Functional Status N/A [facility] 01-14-2023 Functional Status N/A [facility] 01-12-2023 Functional Status N/A [facility] 01-10-2023 Functional Status N/A [facility] 01-04-2023 Functional Status N/A [facility] 01-02-2023 Functional Status N/A [facility] 12-26-2022 Functional Status N/A [facility] 12-23-2022 Functional Status N/A [facility] 12-18-2022 Functional Status N/A [facility] 12-13-2022 Functional Status N/A [facility] 12-12-2022 Functional Status N/A [facility] 12-07-2022 Functional Status N/A [facility] 09-04-2022 Functional Status N/A [facility] Mental Status Date Assessment Result Facility 01-03-2024 Because of a physica l, mental, or emotional condition, do you have serious difficulty concentrating, remembering, or making decisions No 01/03/2024 3:34 PM Fozia Hernandez, RN No [facility] Work Phone: Clinical Notes 02-15-2021 to [...] Treatment for this condition includes: Antibiotic medicine. Fnvp-mqm-zrigwoc medicines to treat discomfort. Drinking enough water [...] Follow these instructions at home: Medicines Take ssea-dkr-jrqzmnq and prescription medicines only as told by [...] provider. Document Revised: 10/16/2020 Document Reviewed: 10/21/2020 [employer] Patient Education 2023 [email or web address]. Follow Up Care 02/20/2024 16:41:49 With:XXXX NONE [...] weakness, or any new or worsening symptoms. [facility] 02-20-2024 Note ED Patient Education Note Obstetrics and Gynecology Urinary Tract Infection, Adult A urinary tract [...] more likely to develop this condition if: ??? You have a urinary catheter that stays in place. ??? You are not able to control when you urinate or have a bowel movement (incontinence). ??? You are female and you: ? Use a spermicide or diaphragm for control. ? Have low estrogen levels. ? Are . ??? You have certain genes that increase your risk. ??? You are sexually active. ??? You take antibiotic medicines. ??? You have a condition that causes your flow of urine to slow down, such as: ? An enlarged prostate, if you are male. ? Blockage in your urethra. ? A kidney stone. ? A nerve condition that affects your bladder control (neurogenic bladder). ? Not getting enough to drink, or not urinating often. ??? You have certain medical conditions, such as: ? Diabetes. ? A weak disease-fighting system (immunesystem). ? Sickle cell disease. ? Gout. ? Spinal cord injury. What are the signs or symptoms? Symptoms of this condition include: ??? Needing to urinate right away (urgency). ??? Frequent urination. This may include small amounts of urine each time you urinate. ??? Pain or burning with urination. ??? Blood in the urine. ??? Urine that smells bad or unusual. ??? Trouble urinating. ??? Cloudy urine. ??? Vaginal discharge, if you are female. ??? Pain in the abdomen or the lower back. You may also have: ??? Vomiting or a decreased appetite. ??? Confusion. ??? Irritability or tiredness. ??? A fever or chills. ??? Diarrhea. The first symptom in older adults may be confusion. In some cases, they may not have any symptoms until the infection has worsened. How is this diagnosed? This condition is diagnosed based on your medical history and a physical exam. You may also have other tests, including: ??? Urine tests. ??? Blood tests. ??? Tests for STIs (sexually transmitted infections). If you have had more than one UTI, a cystoscopy or imaging studies may be done to determine the cause of the infections. How is this treated? Treatment for this condition includes: ??? Antibiotic medicine. ??? Xtvu-bfu-qbjpjaq medicines to treat discomfort. ??? Drinking enough water to stay hydrated. If [...] medicines. Follow these instructions at home: Medicines ??? Take efiu-oqn-rkvzxey and prescription medicines only as told by your health care provider. ??? If you were prescribed an antibiotic medicine, take it as told by your health care provider. Do not stop using the antibiotic even if you start to feel better. General instructions ??? Make sure you: ? Empty your bladder often and completely. Do not hold urine for long periods of time. ? Empty your bladder after sex. ? Wipe from front to back after urinating or having a bowel movement if you are female. Use each tissue only one time when you wipe. ??? Drink enough fluid to keep your urine pale yellow. ??? Keep all follow-up visits. This is important. Contact a health care provider if: ??? Your symptoms do not get better after 1?2 days. ??? Your symptoms go away and then return. Get help right away if: ??? You have severe pain in your back or your lower abdomen. ??? You have a fever or chills. ??? You have nausea or vomiting. Summary ??? A urinary tract infection (UTI) is an infection of any part of the urinary tract, which includes the kidneys, ureters, bladder, and urethra. ??? Most urinary tract infections are caused by bacteria in your genital area. ??? Treatment for this condition often includes antibiotic medicines. ??? If you were prescribed an antibiotic medicine, take it as told by your health care provider. Do not stop using the antibiotic even if you start to feel better. ??? Keep all follow-up visits. This is important. This information is not intended to replace advice given to you by your health care provider. Make sarmad (more content not included)... [facility] 02-20-2024 Evaluation + Plan note Extrac lisa from: Title:ED Note Author:Nikhil Tubbs DO Date:04/21/23 Acute UTI (N39.0: Urinary tr act infection, site not specified) Orders: acetaminophen-oxycodone, 1 tab(s), Tab, Oral, Once, Stop date 02/20/24 17:23:00 EST, STAT, Start date 02/20/24 17:23:00 EST ciprofloxacin, 250 mg = 1 tab(s), Oral, q12hr, X 5 day(s), # 10 tab(s), Refills(s) 0, Pharmacy: [facility]/pharmacy #[id number], 160, cm, 02/20/24 16:44:00 EST, Height/Length Dosing, [...] w/CAD if perf and 3D Kenan 07/17/23 [facility] 11-24-2024 Evaluation + Plan noteExtracted from: [...] day(s), # 14 cap(s), Refills(s) 0, Pharmacy: [facility]/pharmacy #[id number], 160, cm, 02/16/24 9:23:00 EST, Height/Length [...] w/CAD if perf and 3D Kenan 07/17/23 [facility] 11-24-2024 Hospital Discharge instructions Patient Education [...] Follow these instructions at home: Medicines Take eawn-dkr-zghfmqa and prescription medicines only as told by [...] and water are not available, use hand auto claim representative. Contact a health care provider if: You [...] provider. Document Revised: 05/09/2022 Document Reviewed: 05/09/2022 [employer] Patient Education 2023 Stratus5. 02/16/2024 11:52:05 Costochondritis Costochondritis Costochondritis is inflammation [...] are safe for you. General instructions Take qntd-igx-zyyufye and prescription medicines only as told by [...] provider. Document Revised: 09/27/2022 Document Reviewed: 09/27/2022 [employer] Patient Education 2023 [email or web address]. Follow Up Care 02/16/2024 09:18:00 With:Cheyanne Rosas [facility] [address] [facility] [address] Business (1) When:02/19/2024 11:44:12 [facility] [id number] NoteED Patient Education Note Infectious Disease Community-Acquired [...] these instructions at home: Medicines ??? Take mubc-rff-rbaivcp and prescription medicines only as told by [...] risk of developing commu (more content not included)...[facility]11-22-2024 Hospital Discharge instructions Follow Up Care 02/14/2024 12:15:02 With:Cheyanne Rosas Address: [address], [facility] [address] [employer] [place] [id number]- Business (1) When:Within 3 Day(s) [facility] [phone] Evaluation + Plan noteExtracted from: Title:ED Note Author:Jorge Mcintosh DO Date: Pleurisy (R09.1: Pleurisy) Pneumonia (J18.9: Pneumonia, unspecified organism) Orders: albuterol, 2 puff(s), Inhalation, q6hr for 7 day(s), 6.7 gm, Refill(s) 0, [id number], 160, cm, 02/14/24 12:22:00 EST, Height/Length Dosing, 114.8, kg, 02/14/24 12:22:00 EST, Weight Dosing albuterol-ipratropium, 3 mL, Soln-Inh, Inhalation, Once, Stop date 02/14/24 13:14:00 EST, STAT, Start date 02/14/24 13:14:00 EST azithromycin, 250 mg, Oral, As Directed, Take two tabs by mouth on day one, then one tab daily, # 6 tab(s), Refills(s) 0, Pharmacy: [facility]/pharmacy #[id number], 160, cm, 02/14/24 12:22:00 EST, Height/Length Dosing, 114.8, kg, 02/14/24 12:22:00 EST, Weight Dosing ketorolac, 30 mg = 1 mL, Injection, IV, Once, Stop date 02/14/24 15:36:00 EST, STAT, Start date 02/14/24 15:36:00 EST, 02/14/24 15:36:00 EST predniSONE, 3, Oral, Daily, # 15 tab(s), Refills(s) 0, Pharmacy: [facility]/pharmacy #[id number], 160, cm, 02/14/24 12:22:00 EST, Height/Length [...] w/CAD if perf and 3D Kenan 07/17/23 [facility] 11-17-2024 Hospital Discharge instructions* Discharge Instructions* [...] Care Everywhere. * Managing pain after surgery ([place]izen [place]) documented in this [facility] Work Phone: 1(670) 665-736011-17-2024 Emergency department Note* Bianca Persaud RN - 02/09/2024 10:32 AM EST S/p back sx thur on L4L5, states her wound vac is not working. Pt states she noticed it stopped working last night. documented in this [facility] Work Phone: 1(181) 689-668511-17-2024 Emergency department Triage note* Bianca Persaud RN - 02/09/2024 10:32 AM EST S/p back sx thur on L4L5, states her wound vac is not working. Pt states she noticed it stopped working last night. [facility]11-14-2024 Note* Op Note - Judah Woodard MD - 02/06/2024 3:09 PM EST DISCECTOMY POSTERIOR LUMBAR LEFT L4-5 MINIMALLY INVASIVE (L) Operative Note Date: 02/06/2024 OR Location: [facility] OR Name: Jerad Collins , : 1975, Age: 48 y.o., , Sex: female Diagnosis Pre-op Diagnosis * Lumbar disc herniation with radiculopathy [M51.16] Post-op Diagnosis * Lumbar disc herniation with radiculopathy [M51.16] Procedures DISCECTOMY POSTERIOR LUMBAR LEFT L4-5 MINIMALLY INVASIVE 04284 - AK LAMNOTMY INCL W/DCMPRSN NRV ROOT 1 INTRSPC LUMBR Surgeons * Judah Woodard - Primary Resident/Fellow/Other Septic Tank Setter: Surgeons and Role: * No surgeons found with a matching role * Staff: Surgical Assistant Certified: Griffin Escobedo Person: Cheyanne Equipment Sales Specialist: Abby Escobedo Person: Merna Anesthesia Staff: Anesthesiologist: Brock Agudelo MD TOUR LEADER: Gerardo Peña APRN-SABRINA Procedure Summary Anesthesia: Anesthesia type not filed [...] The fascia was coagulated and cut. The [employer] minimally invasive NTS spine system was used. [...] Attestation: I performed the procedure. Judah Woodard [facility] Work Phone: 1(289) 241-411611-14-2024 Miscellaneous Notes* Op Note - Judah Woodard [...] DISCECTOMY POSTERIOR LUMBAR LEFT L4-5 MINIMALLY INVASIVE 85432 - AK LAMNOTMY INCL W/DCMPRSN NRV ROOT 1 INTRSPC LUMBR Surgeons * Judah Ray - Primary Resident/Fellow/Other Septic Tank Setter: Surgeons and Role: * No surgeons found with a matching role * Staff: Surgical Assistant Certified: Griffin Solanoub Person: Cheyanne Equipment Sales Specialist: Abby Escobedo Person: Merna Anesthesia Staff: Anesthesiologist: Brock Agudelo MD TOUR LEADER: Gerardo Peña APRN-SABRINA Procedure Summary Anesthesia: Anesthesia type not filed [...] The fascia was coagulated and cut. The [employer] minimally invasive NTS spine system was used. [...] the procedure. Judah Woodard documented in this [facility] Work Phone: 1(513) 155-560411-14-2024 Attending History and physical note* Judah Woodard [...] She has done physic al therapy at [facility] and continues to do home exercises. [...] infection and wound dehiscence. Judah Woodard MD [facility] Work Phone: 1([phone]) 738-670611-14-2024 History and physical note* Judah Woodard MD [...] She has done physic al therapy at [facility] and continues to do home exercises. [...] dehiscence. Judah Woodard MD [facility]: 1(231) 696-264811-14-2024 Hospital Discharge instructions* Discharge Instructions* ROX Dietrich - 02/06/2024 1:03 PM EST Spine DC [...] apply creams or lotions. [facility] Work Phone: 1(372) 603-157811-12-2024 Hospital Discharge instructions Patient Education 02/04/2024 18:26:07 [...] home: Managing pain, stiffness, and swelling Take ztcl-pyg-wqgdpul and prescription medicines only as told by [...] each day. Do not sit, drive, or imaging administrator one place for more than 30 minutes [...] put less stress on your back. Take nnuv-nut-geayath and prescription medicines only as told by your health care provider, and apply heat or ice as told. This information is not intended to replace advice given to you by your health care provider. Make sure you discuss any questions you have with your health care provider. Document Revised: 06/02/2021 Document Reviewed: 06/02/2021 [employer] Patient Education 2023 Str[employer]5. Follow Up Care 02/04/2024 16:57:46 With:Cheyanne Rosas [facility] [address] [facility] [address] [place] [id number] Business (1) When:02/07/2024 17:35:32 [facility] 11-12-2024 NoteED Patient Education Note Orthopedics Acute Back [...] Managing pain, stiffness, and swelling ??? Take nhbc-ank-xnggzht and prescription medicines only as told by [...] day. ??? Do not sit, drive, or imaging administrator one place for more than 30 minutes [...] control problems. ??? Y (more content not included)...[facility]11-12-2024 History and physical note* Dino Melgoza MD [...] infection the pt is having surgery next Thursday for a discectomy Here for pain mgt [...] preserved. NEURO: Alert and oriented X 3 GENERAL OFFICE ASSOCIATE normal as tested without focal neurological deficit [...] spine dated 01/01/2024; 12/18/2023; 10/31/2023;. ACCESSION NUMBER(S): [id number] ORDERING CLINICIAN: GERMAINE BLAIR TECHNIQUE: Sagittal T1, [...] STIR hyperintense edema. There is redemonstration of fdpm-bs-ptcjlolk disc height loss at the level of L4-L5, with intervertebral disc space is preserved at other levels. Lower thoracic spinal cord unremarkable in appearance. Conus medullaris terminates at the level of L1-L2. There is redemonstration of circumferential disc bulge with superimposed left subarticular disc protrusion at the level of L4-L5 which contributes to poky-tq-wfieipjr spinal canal and mild left-sided neural foraminal [...] at the level of L4-L5, contributing to eyqx-do-drewgjxr spinal canal and mild left-sided neural foraminal narrowing and likely abutment/effacement of the traversing left L5 nerve. 2. No new abnormality is identified in the lumbar spine in the interim to recent MRI on 01/01/2024. No new posterior disc contour abnormality or spinal canal stenosis is present. MACRO: None Signed by: Bernadette Waltermchunoé 01/10/2024 9:34 PM Dictation workstation: [id number] XR lumbar spine 4+ views w flexion extension Result Date: 01/02/2024 Interpreted By: Danielle Orozco, STUDY: XR LUMBAR SPINE 4+ VIEWS WITH FLEXION EXTENSION; 01/02/2024 8:59 am INDICATION: Signs/Symptoms:L4-L5 lumbar stenosis with concern for spondylolisthesis. COMPARISON: None. ACCESSION NUMBER(S): [id number] ORDERING CLINICIAN: ANGELA GONZALEZ FINDINGS: Multiple views of the lumbar spine are obtained. Alignment is intact. The vertebral body heights are preserved. Disc space loss at L4/L5 with endplate sclerosis and osteophytes . No acute fracture-dislocation. Discogenic degenerative changes as described. Signed by: Danielle Orozco 01/02/2024 9:15 AM Dictationworkstation: [id number] MR lumbar spine w and wo IV contrast Result Date: 01/01/2024 Interpreted By: Claudio Balderas, STUDY: MR LUMBAR SPINE W AND WO IV CONTRAST INDICATION: Signs/Symptoms:Paresthesia and weakness of the left lower extremity COMPARISON: Lumbar spine MRI 12/18/2023 ACCESSION NUMBER(S): [id number] ORDERING CLINICIAN: MICHELE LION TECHNIQUE: Multiplanar multisequence [...] by: Claudio Balderas01/01/2024 5:46 PM Dictation workstation: [id number] CT lumbar spine wo IV contrast Result Date: 12/21/2023 Interpreted By: Tomás Hercules, STUDY: CT LUMBAR SPINE WO IV CONTRAST; 12/21/2023 10:01 pm INDICATION: Signs/Symptoms:fell, injured lower back. COMPARISON: MR lumbar spine 12/18/2023 ACCESSION NUMBER(S): [id number] ORDERING CLINICIAN: FRANCISCO J DALEY TECHNIQUE: Axial [...] Tomás Hercules 12/21/2023 10:40 PM Dictation workstation: [id number] MR lumbar spine w and wo IV [...] spine dated 12/06/2023 and 11/13/2023;. ACCESSION NUMBER(S): [id number]; [id number]; [id number] ORDERING CLINICIAN: FATOU TELLEZ TECHNIQUE: Sagittal T1, [...] flavum thickening and facet arthropathy results in quwm-gk-vqjxogik spinal canal stenosis. Mild neural foraminal stenosis [...] the cervical spine as detailed above, with nvmf-pl-tzhechdj narrowing present at the level of C6-C7 due to disc osteophyte complex and ligamentum flavum thickening. 4. Mild degenerative changes in the thoracic spine are similar in appearanceto prior exam on 11/08/2023 without evidence of new high-grade stenosis.. I personally reviewed theimages/study and I agree with the findings as stated by resident physician Dr. Rick Nevarez. This study was interpreted at [facility] [place] [facility], [place], [place]. MACRO: None Signed by: Bernadette Tapia 12/19/2023 2:07 AM Dictation workstation: [id number] MR cervical spine w and wo IV [...] spine dated 12/06/2023 and 11/13/2023;. ACCESSION NUMBER(S): [id number]; [id number]; [id number] ORDERING CLINICIAN: FATOU TELLEZ TECHNIQUE: Sagittal T1, [...] flavum thickening and facet arthropathy results in maik-gk-knadrdum spinal canal stenosis. Mild neural foraminal stenosis [...] the cervical spine as detailed above, with kedh-hu-gmeexxvc narrowing present at the level of C6-C7 due to disc osteophyte complex and ligamentum flavum thickening. 4. Mild degenerative changes in the thoracic spine are similar in appearanceto prior exam on 11/08/2023 without evidence of new high-grade stenosis.. I personally reviewed theimages/study and I agree with the findings as stated by resident physician Dr. Rick Nevarez. This study was interpreted at [place], [place]. MACRO: None Signed by: Bernadette Tapia 12/19/2023 2:07 AM Dictation workstation: [id number] MR thoracic spine w and wo IV [...] spine dated 12/06/2023 and 11/13/2023;. ACCESSION NUMBER(S): [id number]; [id number]; [id number] ORDERING CLINICIAN: FATOU TELLEZ TECHNIQUE: Sagittal T1, [...] flavum thickening and facet arthropathy results in phwe-kg-acarzugd spinal canal stenosis. Mild neural foraminal stenosis [...] the cervical spine as detailed above, with jkcf-sk-cxwarekm narrowing present at the level of C6-C7 due to disc osteophyte complex and ligamentum flavum thickening. 4. Mild degenerative changes in the thoracic spine are similar in appearanceto prior exam on 11/08/2023 without evidence of new high-grade stenosis.. I personally reviewed theimages/study and I agree with the findings as stated by resident physician Dr. Rick Nevarez. This study was interpreted at [place], [place]. MACRO: None Signed by: Bernadette Tapia 12/19/2023 2:07 AM Dictation workstation: [id number] CT lumbar spine w IV contrast Result Date: 12/15/2023 Interpreted By: Allyson Schultz, STUDY: CT ABDOMEN PELVIS W IV CONTRAST; CT LUMBAR SPINE W IV CONTRAST; 12/15/2023 7:50 pm INDICATION: Signs/Symptoms:h/o spinal stim c/b infections with wound vac inplace, pain to surrounding areas radiating to flanks. COMPARISON: 12/07/2023 CT abdomen/pelvis ACCESSION NUMBER(S): [id number]; [id number] ORDERING CLINICIAN: PABLO GERONIMO TECHNIQUE: Contiguous axial [...] Allyson Schultz 12/15/2023 8:37 PM Dictation workstation: [id number] CT lumbar spine wo IV contrast Result [...] spine , XR abdomen 10/31/2023. ACCESSION NUMBER(S): [id number], [id number] ORDERING CLINICIAN: DOUG ALFONSO TECHNIQUE: CT of [...] Date: 12/07/2023 Interpreted By: Oscar Sabillon and Daniela Kaba STUDY: MR LUMBAR SPINE W AND WO IV CONTRAST; 12/06/2023 9:50 pm INDICATION: Signs/Symptoms:post op wound complication. COMPARISON: MR lumbar spine 11/13/2023. ACCESSION NUMBER(S): [id number] ORDERING CLINICIAN: MARQUIS CALDERÓN TECHNIQUE: SagittalT1, T2, [...] severe left subarticular stenosis, similar to prior. Lpiu-hb-jpflwphl rmmlp-qjjbndl-dgmq-left neural foraminal stenosis. L5-S1: Small disc bulge [...] This study was interpreted at [facility] [place] [facility], [place], [place] MACRO: None Signed by: Oscar Sabillon 12/07/2023 1:30 AM Dictation workstation: [id number] CT lumbar spine w IV contrast Result [...] consider dedicated adrenal imaging. Keke Beebe D.O.Workstation ID:[id number] MR lumbar spine w and wo IV contrast Result Date: 11/14/2023 Interpreted By: Oscar Sabillon, and Kenji Herr STUDY: MR LUMBAR SPINE W AND WO IV CONTRAST; 11/13/2023 8:10 pm INDICATION: Signs/Symptoms:r/o abscess. COMPARISON: MRI lumbar spine 10/31/2023 ACCESSION NUMBER(S): [id number] ORDERING CLINICIAN: CRISTOBAL GARIBAY TECHNIQUE: Sagittal T1, [...] similar to prior. There is also similar mhkh-im-wjnunbte right greater than left foraminal stenosis due [...] of midline at (more content not included)... [facility] Work Phone: 1(337) 424-834011-12-2024 History and physical note* Dino Melgoza MD [...] preserved. NEURO: Alert and oriented X 3 GENERAL OFFICE ASSOCIATE normal as tested without focal neurological deficit [...] spine dated 01/01/2024; 12/18/2023; 10/31/2023;. ACCESSION NUMBER(S): [id number] ORDERING CLINICIAN: GERMAINE BLAIR TECHNIQUE: Sagittal T1, [...] STIR hyperintense edema. There is redemonstration of jgwa-zv-ncrdacok disc height loss at the level of L4-L5, with intervertebral disc space is preserved at other levels. Lower thoracic spinal cord unremarkable in appearance. Conus medullaris terminates at the level of L1-L2. There is redemonstration of circumferential disc bulge with superimposed left subarticular disc protrusion at the level of L4-L5 which contributes to xugy-dr-cufmpkqn spinal canal and mild left-sided neural foraminal [...] at the level of L4-L5, contributing to tqly-aj-ribaiphy spinal canal and mild left-sided neural foraminal narrowing and likely abutment/effacement of the traversing left L5 nerve. 2. No new abnormality is identified in the lumbar spine in the interim to recent MRI on 01/01/2024. No new posterior disc contour abnormality or spinal canal stenosis is present. MACRO: None Signed by: Bernadette Tapia 01/10/2024 9:34 PM Dictation workstation: [id number] XR lumbar spine 4+ views w flexion extension Result Date: 01/02/2024 Interpreted By: Danielle Orozco, STUDY: XR LUMBAR SPINE 4+ VIEWS WITH FLEXION EXTENSION; 01/02/2024 8:59 am INDICATION: Signs/Symptoms:L4-L5 lumbar stenosis with concern for spondylolisthesis. COMPARISON: None. ACCESSION NUMBER(S): [id number] ORDERING CLINICIAN: ANGELA GONZALEZ FINDINGS: Multiple views of the lumbar spine are obtained. Alignment is intact. The vertebral body heights are preserved. Disc space loss at L4/L5 with endplate sclerosis and osteophytes . No acute fracture-dislocation. Discogenic degenerative changes as described. Signed by: Danielle Orozco 01/02/2024 9:15 AM Dictationworkstation: [id number] MR lumbar spine w and wo IV contrast Result Date: 01/01/2024 Interpreted By: Claudio Balderas, STUDY: MR LUMBAR SPINE W AND WO IV CONTRAST INDICATION: Signs/Symptoms:Paresthesia and weakness of the left lower extremity COMPARISON: Lumbar spine MRI 12/18/2023 ACCESSION NUMBER(S): [id number] ORDERING CLINICIAN: MICHELE LION TECHNIQUE: Multiplanar multisequence [...] by: Claudio Balderas01/01/2024 5:46 PM Dictation workstation: [id number] CT lumbar spine wo IV contrast Result Date: 12/21/2023 Interpreted By: Tomás Hercules, STUDY: CT LUMBAR SPINE WO IV CONTRAST; 12/21/2023 10:01 pm INDICATION: Signs/Symptoms:fell, injured lower back. COMPARISON: MR lumbar spine 12/18/2023 ACCESSION NUMBER(S): [id number] ORDERING CLINICIAN: FRANCISCO J DALEY TECHNIQUE: Axial [...] Tomás Hercules 12/21/2023 10:40 PM Dictation workstation: [id number] MR lumbar spine w and wo IV [...] spine dated 12/06/2023 and 11/13/2023;. ACCESSION NUMBER(S): [id number]; [id number]; [id number] ORDERING CLINICIAN: FATOU TELLEZ TECHNIQUE: Sagittal T1, [...] flavum thickening and facet arthropathy results in tqlx-yz-gknyktjf spinal canal stenosis. Mild neural foraminal stenosis [...] the cervical spine as detailed above, with wwvf-bc-clunnzzp narrowing present at the level of C6-C7 due to disc osteophyte complex and ligamentum flavum thickening. 4. Mild degenerative changes in the thoracic spine are similar in appearanceto prior exam on 11/08/2023 without evidence of new high-grade stenosis.. I personally reviewed theimages/study and I agree with the findings as stated by resident physician Dr. Rick Nevarez. This study was interpreted at [place], [place]. MACRO: None Signed by: Bernadette Tapia 12/19/2023 2:07 AM Dictation workstation: [id number] MR cervical spine w and wo IV [...] spine dated 12/06/2023 and 11/13/2023;. ACCESSION NUMBER(S): [id number]; [id number]; [id number] ORDERING CLINICIAN: FATOU TELLEZ TECHNIQUE: Sagittal T1, [...] flavum thickening and facet arthropathy results in fcjy-ct-jvlwuwyr spinal canal stenosis. Mild neural foraminal stenosis [...] the cervical spine as detailed above, with shlg-jk-qhhwxrds narrowing present at the level of C6-C7 due to disc osteophyte complex and ligamentum flavum thickening. 4. Mild degenerative changes in the thoracic spine are similar in appearanceto prior exam on 11/08/2023 without evidence of new high-grade stenosis.. I personally reviewed theimages/study and I agree with the findings as stated by resident physician Dr. Rick Nevarez. This study was interpreted at [place], [place]. MACRO: None Signed by: Bernadette Tapia 12/19/2023 2:07 AM Dictation workstation: [id number] MR thoracic spine w and wo IV contrast Result Date: 12/19/2023 Interpreted By: Bernadette Tapia, and Libby Childresshrab STUDY: MR CERVICAL SPINE W AND WO [...] spine dated 12/06/2023 and 11/13/2023;. ACCESSION NUMBER(S): [id number]; [id number]; [id number] ORDERING CLINICIAN: FATOU TELLEZ TECHNIQUE: Sagittal T1, [...] flavum thickening and facet arthropathy results in fmpj-ph-xfhvwiln spinal canal stenosis. Mild neural foraminal stenosis [...] the cervical spine as detailed above, with hisl-lg-alyytipc narrowing present at the level of C6-C7 due to disc osteophyte complex and ligamentum flavum thickening. 4. Mild degenerative changes in the thoracic spine are similar in appearanceto prior exam on 11/08/2023 without evidence of new high-grade stenosis.. I personally reviewed theimages/study and I agree with the findings as stated by resident physician Dr. Rick Nevarez. This study was interpreted at [place], [place]. MACRO: None Signed by: Bernadette Tapia 12/19/2023 2:07 AM Dictation workstation: [id number] CT lumbar spine w IV contrast Result Date: 12/15/2023 Interpreted By: Allyson Schultz, STUDY: CT ABDOMEN PELVIS W IV CONTRAST; CT LUMBAR SPINE W IV CONTRAST; 12/15/2023 7:50 pm INDICATION: Signs/Symptoms:h/o spinal stim c/b infections with wound vac inplace, pain to surrounding areas radiating to flanks. COMPARISON: 12/07/2023 CT abdomen/pelvis ACCESSION NUMBER(S): [id number]; [id number] ORDERING CLINICIAN: PABLO GERONIMO TECHNIQUE: Contiguous axial [...] Allyson Schultz 12/15/2023 8:37 PM Dictation workstation: [id number] CT lumbar spine wo IV contrast Result [...] spine , XR abdomen 10/31/2023. ACCESSION NUMBER(S): [id number], [id number] ORDERING CLINICIAN: DOUG ALFONSO TECHNIQUE: CT of [...] Result Date: 12/07/2023 Interpreted By: Oscar Sabillon, Carly Kaba STUDY: MR LUMBAR SPINE W AND WO IV CONTRAST; 12/06/2023 9:50 pm INDICATION: Signs/Symptoms:post op wound complication. COMPARISON: MR lumbar spine 11/13/2023. ACCESSION NUMBER(S): [id number] ORDERING CLINICIAN: MARQUIS CALDERÓN TECHNIQUE: SagittalT1, T2, [...] severe left subarticular stenosis, similar to prior. Fkig-cv-niiodxkq jxcgt-bvgnzvp-guwi-left neural foraminal stenosis. L5-S1: Small disc bulge [...] Suarez MD. This study was interpreted at [place], [place] MACRO: None Signed by: Oscar Sabillon 12/07/2023 1:30 AM Dictation workstation: [id number] CT lumbar spine w IV contrast Result [...] consider dedicated adrenal imaging. Keke Beebe D.O.Workstation ID:[id number] MR lumbar spine w and wo IV contrast Result Date: 11/14/2023 Interpreted By: Oscar Sabillon, and Kenji Herr STUDY: MR LUMBAR SPINE W AND WO IV CONTRAST; 11/13/2023 8:10 pm INDICATION: Signs/Symptoms:r/o abscess. COMPARISON: MRI lumbar spine 10/31/2023 ACCESSION NUMBER(S): [id number] ORDERING CLINICIAN: CRISTOBAL GARIBAY TECHNIQUE: Sagittal T1, [...] similar to prior. There is also similar zppa-nj-xofhewxh right greater than left foraminal stenosis due [...] findings as stated.This study was interpreted at [facility] [place] [facility], [place], [place]. Signed by: Oscar Sabillon 11/14/2023 2:57 AM Dictation workstation: [id number] CT lumbar spine wo IV contrast Addendum Date: 11/13/2023 This finding was discussed with and acknowledged by Dr Alana Lindquist on 11/13/2023 at 2:54 PM Signed by Michele Berry MD Result Date: 11/13/2023 STUDY: CT Lumbar Spine without IV Contrast; 11/13/2023 1:45 PM INDICATION: Re- assess surgical site. COMPARISON: CT lumbar 11/09/2023. MR lumbar 10/31/2023. ACCESSION NUMBER(S): [id number] ORDERING CLINICIAN: ALANA LINDQUIST TECHNIQUE: CT of [...] COMPARISON: MR lumbar 10/31/2023, 10/31/2022. ACCESSION NUMBER(S): [id number] ORDERING CLINICIAN: JAROCHO LINDER TECHNIQUE: CT of [...] cord stimulator leads. COMPARISON: None. ACCESSION NUMBER(S): [id number] ORDERING CLINICIAN: CHIRAG REYNOSO TECHNIQUE: Sagittal T1, [...] above. MACRO: None Signed by: Peter Smith 49:53 AM Dictation workstation: [id number] MR lumbar spine w and wo IV [...] COMPARISON: MRI lumbar spine 10/31/2022 ACCESSION NUMBER(S): [id number] ORDERING CLINICIAN: ELKE ADAMS TECHNIQUE: Multiplanar multisequence [...] and I agree with Germaine Segovia DO's (residential real estate agent) findings as stated. This study was interpreted at [place], [place]. MACRO: None Signed by: Amy Miller 11/01/2023 12:21 AM Dictation workstation: [id number] Assessment/Plan 62 years old with history and [...] visit with any questions or concerns at [phone] M-F 8-4 pm Dino Melgoza M.D. Key Punch Teacher , Division of Pain Medicine [facility] Video Rental Clerk of Anesthesiology and Pain Medicine [employer] [place] [address] [place] [address] Office: [phone] Dino Melgoza MD [facility] Work Phone: 1(135) 157-817611-12-2024 History of Present illness Narrative* Fanny Edwards [...] anticipated. Fanny Edwards RN documented in this [facility] Work Phone: 1(829) 808-821011-07-2024 Emergency department Note* Germaine Blair PA-C - [...] 1 week. [facility]. [facility] [...] this time. Patient was recently admitted at [facility] for pain control. She was discharged 2 [...] Blair PA-C 01/30/24 1153 documented in this [facility] Work Phone: 1(935) 753-586011-07-2024 Physician Emergency department Note* Germaine Blair PA-C [...] 1 week. [facility] [...] this time. Patient was recently admitted at [facility] for pain control. She was discharged 2 [...] vertebral fracture, pancreatitis, zoster Diagnoses as of 01/30/241152 Fall, initial encounter Chronic low back pain with left-sided sciatica, unspecified back pain laterality Germaine Blair PA-C 01/30/241152 [facility] Work Phone: 1(954) 132-210011-05-2024 Nurse Note* Edwina Lopez RN - 01/28/2024 10:42 AM EST 1042am Pt given written and verbal discharge instructions with verbalized understanding. Pt's Iv heplock removed per [facility] without difficulty. Pt wanted to walk down for dc escorted by [facility], pt also given written RX of ambien and oxy, and to picker machine operator meds from [facility]. [facility] Work Phone: 1(243) 350-991411-05-2024 Nurse Note* Edwina Lopez RN - 01/28/2024 10:42 AM EST 1042am Pt given written and verbal discharge instructions with verbalized understanding. Pt's Iv heplock removed per [facility] without difficulty. Pt wanted to walk down for dc escorted by [facility], pt also given written RX of ambien and oxy, and to picker machine operator meds from [facility]. * Curtis Mckenzie - 01/28/2024 8:46 AM EST Vitals done Breakfast was eaten Call light within reach * Edwina Lopez RN - 01/28/2024 7:45 AM EST 0745am Assumed care of pt, A/O x4 c/o pains 11/01 to low back no distress noted. Pt [...] room and call light. documented in this [facility] Work Phone: 1(634) 433-737811-05-2024 Hospital course Narrative* Chirag Miguel MD - [...] Time Provider Department Center 01/29/2024 11:00 AM [facility] ROOM 03 [facility] 01/30/2024 9:00 AM Iveth Burger APRN-BOX SEALING 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 [id number] [place] 02/25/2024 11:00 AM Marlee Fitzpatrick MD [id number] [place] 03/10/2024 2:15 PM Judah Woodard MD [id number] [facility] 06/29/2024 8:00 AM Chidi Joseph MD [id number] [place] Time spent coordinating discharge was 32 minutes. Chirag Miguel MD documented in this [facility] Work Phone: 1(848) 862-647211-05-2024 Nurse Note* Curtis Mckenzie - 01/28/2024 8:46 AM EST Vitals done Breakfast was eaten Call light within reach [facility]11-05-2024 Nurse Note* Edwina Lopez RN - 01/28/2024 7:45 AM EST 0745am Assumed care of pt, A/O x4 c/o pains 11/01 to low back no distress noted. Pt awake sitting upat side of bed with call light in reach. [facility] Work Phone: 1(333) 319-209611-05-2024 Nurse Note* Mellissa Chung RN - 01/28/2024 3:30 AM EST Patient resting in bed with eyes closed. Respirations even and unlabored. Call light is within reach and bed alarm is activated. [facility]11-04-2024 Nurse Note* Mellissa Chung RN - 01/27/2024 11:24 PM EST Patient ambulated to restroom with walker. Void x 1. Returned to bed and positioned for comfort. Medicated with prn toradol for 6/10 low back pain. Vital signs stable. No other needs at this time. Call light is within reach and bed alarm is activated. [facility] Work Phone: 1(900) 638-626011-04-2024 Plan of care note* Care Plan - Mellissa Chung RN - 01/27/2024 8:02 PM EST The patient's goals for the shift include pain management The clinical goals for the shift include pain management, safety [facility] Work Phone: 1(702) 520-392511-04-2024 Miscellaneous Notes* Care Plan - Mellissa Chung [...] throughout the shift Reactivated documented in this [facility] Work Phone: 1([phone]) 883-880111-04-2024 Nurse Note* Mellissa Chung RN - 01/27/2024 7:30 PM EST Assumed care of patient. Report received from DARSHAN Barrientos. Patient lying in bed watching TV. Vital signs stable. Rates her chronic pain in the lower back an 8/10 and will be medicated per doctor's orders. No other stated needs at this time. Call light is within reach and bed alarm is activated. [facility] Work Phone: 1(524) 493-963211-04-2024 History of Present illness Narrative* Cristobal Churchill, PT - 01/27/2024 3:36 PM EST Physical Therapy Therapy Communication Note Patient Name: Jerad Collins Department: [facility] Room: [address] [place] [address] Today's Date: 01/27/2024 Discipline: Physical Therapy Comment: [...] a planned spinal surgery for 02/05 at [facility]. PT discussed safety upon discharge home and patient reports she feels safe and does not have any concerns. No acute PT at this time per patient's request. Recommend discharge home with 24 hour supervision, use of RW, and follow up with her spine surgeon. Cristobal Churchill PT, DPT * Vijay Maria MD - [...] spine dated 01/01/2024; 12/18/2023; 10/31/2023;. ACCESSION NUMBER(S): [id number] ORDERING CLINICIAN: GERMAINE BLAIR TECHNIQUE: Sagittal T1, [...] STIR hyperintense edema. There is redemonstration of thee-yg-vxrgsimj disc height loss at the level of L4-L5, with intervertebral disc space is preserved at other levels. Lower thoracic spinal cord unremarkable in appearance. Conus medullaris terminates at the level of L1-L2. There is redemonstration of circumferential disc bulge with superimposed left subarticular disc protrusion at the level of L4-L5 which contributes to embm-yn-rcvpyqwr spinal canal and mild left-sided neural foraminal [...] at the level of L4-L5, contributing to rczs-rh-oouuzkvy spinal canal and mild left-sided neural foraminal narrowing and likely abutment/effacement of the traversing left L5 nerve. 2. No new abnormality is identified in the lumbar spine in the interim to recent MRI on 01/01/2024. No new posterior disc contour abnormality or spinal canal stenosis is present. MACRO: None Signed by: Bernadette Tapia 01/10/2024 9:34 PM Dictation workstation: [id number] Physical Exam Constitutional: Appearance: Normal appearance. HENT: [...] surgery scheduled on 02/06/24 with Neurosurgeon in [facility] to remove herniated/Bulging discs. TCC anticipates [...] None Expected Discharge Disposition Home * Cristobal Churchill PT - 01/27/2024 11:00 AM EST Physical Therapy Therapy Communication Note Patient Name: Jerad Collins Department: [facility] Room: [address] [place] [address] Today's Date: 01/27/2024 Discipline: Physical Therapy Comment: PT eval orders received, however patient is awaiting pain management consult. PT will waitto see what the plan is from pain management team prior to proceeding with PT eval. Cristobal Churchill PT, DPT documented in [facility] Work Phone: 1([phone]) 788-720311-04-2024 Nurse Note* Iliana Fox RN - 01/27/2024 3:30 PM EST Patient states she can tolerate a pain level of 7 Medicated as per request and order for pain.Refused to participate with physical therapy. [facility]11-04-[facility] Nurse Note* Iliana Fox RN - 01/27/2024 10:52 AM EST Pain management in to see patient and will discuss pain medication for management. [facility] Work Phone: 1([phone]) 935-231511-04-2024 Consult note* Jia Nichols MD - 01/27/2024 [...] spine dated 01/01/2024; 12/18/2023; 10/31/2023;. ACCESSION NUMBER(S): [id number] ORDERING CLINICIAN: GERMAINE BLAIR TECHNIQUE: Sagittal T1, [...] STIR hyperintense edema. There is redemonstration of pcct-ul-gkbnornu disc height loss at the level of L4-L5, with intervertebral disc space is preserved at other levels. Lower thoracic spinal cord unremarkable in appearance. Conus medullaris terminates at the level of L1-L2. There is redemonstration of circumferential disc bulge with superimposed left subarticular disc protrusion at the level of L4-L5 which contributes to vqwt-vr-asersetd spinal canal and mild left-sided neural foraminal [...] at the level of L4-L5, contributing to jldt-kw-hjohccjf spinal canal and mild left-sided neural foraminal narrowing and likely abutment/effacement of the traversing left L5 nerve. 2. No new abnormality is identified in the lumbar spine in the interim to recent MRI on 01/01/2024. No new posterior disc contour abnormality or spinal canal stenosis is present. MACRO: None Signed by: Bernadette Tapia 01/10/2024 9:34 PM Dictation workstation: [id number] No image results found. No diagnosis found. [...] Jia Nichols MD Interventional Pain Medicine Fellow [facility] This note was generated with the aid of dictation software, there may be typographical errors despite my attempts at proofreading. Cosigned by Drake Kenyon MD PhD at 01/27/2024 1:05 PM EST [facility] Work Phone: 1(794) 611-859611-04-2024 Consult note* Jia Nichols MD - 01/27/2024 [...] spine dated 01/01/2024; 12/18/2023; 10/31/2023;. ACCESSION NUMBER(S): [id number] ORDERING CLINICIAN: GERMAINE BLAIR TECHNIQUE: Sagittal T1, [...] STIR hyperintense edema. There is redemonstration of plyp-gy-nvdewmob disc height loss at the level of L4-L5, with intervertebral disc space is preserved at other levels. Lower thoracic spinal cord unremarkable in appearance. Conus medullaris terminates at the level of L1-L2. There is redemonstration of circumferential disc bulge with superimposed left subarticular disc protrusion at the level of L4-L5 which contributes to doio-wx-encznhrs spinal canal and mild left-sided neural foraminal [...] at the level of L4-L5, contributing to kzmy-bj-oeittfag spinal canal and mild left-sided neural foraminal narrowing and likely abutment/effacement of the traversing left L5 nerve. 2. No new abnormality is identified in the lumbar spine in the interim to recent MRI on 01/01/2024. No new posterior disc contour abnormality or spinal canal stenosis is present. MACRO: None Signed by: Bernadette Tapia 01/10/2024 9:34 PM Dictation workstation: [id number] No image results found. No diagnosis found. [...] Jia Nichols MD Interventional Pain Medicine Fellow [facility] This note was generated with the aid of dictation software, there may be typographical errors despite my attempts at proofreading. Cosigned by Drake Kenyon MD PhD at 01/27/2024 1:05 PM EST documented in this encounterOhio[facility] Work Phone: 1(759) 886-229411-04-2024 Nurse Note* Iliana Fox RN - 01/27/2024 7:58 AM EST Pain level listed at 7/10 for lower back discomfort.Patient states this is a tolerable pain level for her. [facility] Work Phone: [phone] 293-497511-04-2024 Plan of care note* Care Plan - Iliana Fox RN - 01/27/2024 7:34 AM EST The patient's goals for the shift include pain management. The clinical goals for the shift include pain control. [facility] Work Phone: 1([phone]) 233-584711-04-2024 Nurse Note* Curtis Mckenzie - 01/27/2024 7:10 AM EST Vitals done Currently NPO Call light within reach [facility] Work Phone: [phone] 927-756911-04-2024 Plan of care note* Care Plan - [...] opioid side effects throughout the shift Reactivated [facility] Work Phone: 1(129) 573-159511-04-2024 History and physical note* Chirag Miguel MD [...] 8 out of 10.She presented initially to [facility] ED and had a negative workup. Pain management was consulted, and patient was transferred to [facility] for consultation. Patient denies any new [...] spine dated 01/01/2024; 12/18/2023; 10/31/2023;. ACCESSION NUMBER(S): [id number] ORDERING CLINICIAN: GERMAINE BLAIR TECHNIQUE: Sagittal T1, [...] STIR hyperintense edema. There is redemonstration of tcjl-sq-ysrixiic disc height loss at the level of L4-L5, with intervertebral disc space is preserved at other levels. Lower thoracic spinal cord unremarkable in appearance. Conus medullaris terminates at the level of L1-L2. There is redemonstration of circumferential disc bulge with superimposed left subarticular disc protrusion at the level of L4-L5 which contributes to rkhz-ex-fulmrqag spinal canal and mild left-sided neural foraminal [...] at the level of L4-L5, contributing to bzts-wc-iheiljby spinal canal and mild left-sided neural foraminal narrowing and likely abutment/effacement of the traversing left L5 nerve. 2. No new abnormality is identified in the lumbar spine in the interim to recent MRI on 01/01/2024. No new posterior disc contour abnormality or spinal canal stenosis is present. MACRO: None Signed by: Bernadette Tapia 01/10/2024 9:34 PM Dictation workstation: [id number] Results for orders placed or performed during [...] SCDs for DVT ppx. Chirag Miguel MD [facility] Work Phone: [phone]) 723-234211-04-2024 History and physical note* Chirag Miguel MD [...] 8 out of 10.She presented initially to [facility] ED and had a negative workup. Pain management was consulted, and patient was transferred to [facility] for consultation. Patient denies any new [...] spine dated 01/01/2024; 12/18/2023; 10/31/2023;. ACCESSION NUMBER(S): [id number] ORDERING CLINICIAN: GERMAINE BLAIR TECHNIQUE: Sagittal T1, [...] STIR hyperintense edema. There is redemonstration of wpca-re-wjnulvex disc height loss at the level of L4-L5, with intervertebral disc space is preserved at other levels. Lower thoracic spinal cord unremarkable in appearance. Conus medullaris terminates at the level of L1-L2. There is redemonstration of circumferential disc bulge with superimposed left subarticular disc protrusion at the level of L4-L5 which contributes to tvlo-it-urlurgtz spinal canal and mild left-sided neural foraminal [...] at the level of L4-L5, contributing to nevv-lc-ptjuiisn spinal canal and mild left-sided neural foraminal narrowing and likely abutment/effacement of the traversing left L5 nerve. 2. No new abnormality is identified in the lumbar spine in the interim to recent MRI on 01/01/2024. No new posterior disc contour abnormality or spinal canal stenosis is present. MACRO: None Signed by: Bernadette Tapia 01/10/2024 9:34 PM Dictation workstation: [id number] Results for orders placed or performed during [...] ppx. Chirag Miguel MD documented in this encounter[facility] Work Phone: 1([phone]) 264-714411-04-2024 Nurse Note* Elke Gtz RN - 01/27/2024 3:50 AM EST Patient arrived on cart [facility] to room 223 at 0330. Patient is alert and oriented x 4. Vitals are stable. Patient rates left lower back pain 8/10. Dr. Miguel notified of patient's arrival. Patient oriented to room and call light. [facility] Work Phone: 1(312) 961-310211-03-2024 Emergency department Note* Rayshawn Fischer PA-C - [...] at this time. History provided by: Patient looper fixer used: No Patient History Past Medical History: [...] at the level of L4-L5, contributing to figp-mr-eizdfmcm spinal canal and mild left-sided neural foraminal narrowing and likely abutment/effacement of the traversing left L5 nerve. 2. No new abnormality is identified in the lumbar spine in the interim to recent MRI on 01/01/2024. No new posterior disc contour abnormality or spinal canal stenosis is present. MACRO: None Signed by: Bernadette Tapia 01/10/2024 9:34 PM Dictation workstation: [id number] [] 8382 Spoke with pain management who recommends admission versus treatment outpatient. Patient wouldlike to be admitted at this time. pain management will see patient in the morning [] 1827 Spoke with Giulia Man from [facility] who accepts transfer of this patient [] ED Course User Index [] Rayshawn Fischer PA-C Diagnoses as of 01/26/24 183 Acute left-sided low back pain with left-sided [...] 2 mgof morphine. would like transferred to [facility] for further evaluation and treatment. Do not think imaging is indicated at this time. Patient was accepted to [facility].I did order a CBC and CMP on her and attending physician Dr. Corbin will follow up with these labs. My shift ended at [address] Corbin pending transfer. I did speak with pain management as noted above who states they will see patient tomorrow morning. Discussed with MD from [facility] as noted above who accepted transfer of this patient. Patient will be transferred via BLS to [facility]. Differential diagnosis: Back strain, AAA rupture, cauda equina syndrome, cord compression, compression fracture, epidural abscess, epidural hematoma, herniated disc, sciatica, nephrolithiasis, ureterolithiasis, PE, pyelonephritis, vertebral fracture, pancreatitis, zoster Disposition/treatment 1. See above Shared decision-making was used patient feels comfortable being transferred to [facility] for further evaluation and treatment. Procedure Procedures [...] new injury or trauma. documented in this encounterOhio[facility] Work Phone: 1(685) 291-296811-03-2024 Emergency department Triage note* Fatou Morales RN - 01/26/2024 4:34 PM EST Pt c/o worsening back pain that started today. Pt has a slipped disc in L5. Pt scheduled to have back surgery on 02/05. Pt denies new injury or trauma. [facility] Work Phone: 1([phone]) 108-735011-03-2024 Physician Emergency department Note* Rayshawn Fischer PA-C [...] at this time. History provided by: Patient looper fixer used: No Patient History Past Medical History: [...] at the level of L4-L5, contributing to cqtt-yh-vwzhwkms spinal canal and mild left-sided neural foraminal narrowing and likely abutment/effacement of the traversing left L5 nerve. 2. No new abnormality is identified in the lumbar spine in the interim to recent MRI on 01/01/2024. No new posterior disc contour abnormality or spinal canal stenosis is present. MACRO: None Signed by: Bernadette Tapia 01/10/2024 9:34 PM Dictation workstation: [id number] [] 182 Spoke with pain management who recommends admission versus treatment outpatient. Patient wouldlike to be admitted at this time. pain management will see patient in the morning [] 182 Spoke with Giulia Man from [facility] who accepts transfer of this patient [] ED Course User Index [] Rayshawn Fischer PA-C Diagnoses as of 01/26/24 183 Acute left-sided low back pain with left-sided sciatica No data recorded [place] Coma Scale Score: 15 (01/26/24 1646 : [...] 2 mgof morphine. would like transferred to [facility] for further evaluation and treatment. Do not think imaging is indicated at this time. Patient was accepted to [facility].I did order a CBC and CMP on her and attending physician Dr. Corbin will follow up with these labs. My shift ended at [address] Corbin pending transfer. I did speak with pain management as noted above who states they will see patient tomorrow morning. Discussed with MD from [facility] as noted above who accepted transfer of this patient. Patient will be transferred via BLS to [facility]. Differential diagnosis: Back strain, AAA rupture, cauda equina syndrome, cord compression, compression fracture, epidural abscess, epidural hematoma, herniated disc, sciatica, nephrolithiasis, ureterolithiasis, PE, pyelonephritis, vertebral fracture, pancreatitis, zoster Disposition/treatment 1. See above Shared decision-making was used patient feels comfortable being transferred to [facility] for further evaluation and treatment. Procedure Procedures [...] does agree to consult on case tomorrow. [facility] Work Phone: 1(666) 472-899211-02-2024 Hospital Discharge instructions Patient Education 01/25/2024 16:05:44 Chronic Back Pain, Gfjr-tl-Uevn Chronic Back Pain Chronic back pain is [...] pull them backward. Do not sit or imaging administrator one place for too long. Take short [...] to your body. ?Avoid twisting. Medicines Take zotj-cbw-bobysxp and prescription medicines only as told by [...] keep your pee (urine) pale yellow. ?Take kizq-lkp-qvlckqm or prescription medicines. ?Eat foods that are [...] provider. Document Revised: 10/29/2022 Document Reviewed: 10/29/2022 Pressy Patient Education 2023 [employer]atus5. Follow Up Care 01/25/2024 15:23:27 With:[facility]: [place] [phone] Address:Unknown When:01/28/2024 16:05:07 Comments:Call to schedule a follow-up appointment with your neurosurgeon and/or pain management for further management of care. Use the prednisone as prescribed. Use the Flexeril and lidocaine patches as needed for pain along with Tylenol and Motrin. Return to ED with any new or worsening symptoms. With:Cheyanne Rosas Address: [address] [place] [address] [address]- Business (1) When:Within 3 Day(s) [facility] 11-02-2024 NoteED Patient Education Note Orthopedics Chronic Back [...] them backward. ??? Do not sit or imaging administrator one place for too long. ??? Take [...] body. ? Avoid twisting. Medicines ??? Take jqht-mva-luaqiet and prescription medicines only as told by [...] your pee (urine) pale yellow. ? Take mhkz-uqr-qlorggw or prescription medicines. ? Eat foods that [...] provider. Document Revised: 10/29/2022 Document Reviewed: 10/29/2022 Elsevier Patient Education ? 2023 Pressy [facility] 01-25-2024 NoteProgress Note-Nurse leaves with Fl[facility]11-01-2024 Emergency department Note * Kecia Huff, ELIZABETH-MARINA - 01/24/2024 7:22 PM EDT HPI Chief Complaint Patient presents with Back Pain My back is spasming 48-year-old female presents emergency department, patient has chronic low back pain, is due to havesurgery on 02/05. Patient states she overdid it today and is having worse pain this evening. Statesherb has not prescribed anything strong for her back pain. Presents to the ED requesting a pain medication. Patient denies any numbness or tingling to distal extremities, states this pain today feels very similar to her previous exacerbations of her low back pain. History provided by: Patient looper fixer used: No Patient History Past Medical History: [...] additional concerns. Procedure Procedures ROX Ennis 01/24/242015 documented in this [facility] Work Phone: 1(575) 534-337811-01-2024 Physician Emergency department Note* ROX Ennis - 01/24/2024 7:22 PM EDT HPI Chief Complaint Patient presents with Back Pain My back is spasming 48-year-old female presents emergency department, patient has chronic low back pain, is due to havesurgery on 02/05. Patient states she overdid it today and is having worse pain this evening. Misa has not prescribed anything strong for her back pain. Presents to the ED requesting a pain medication. Patient denies any numbness or tingling to distal extremities, states this pain today feels v jess similar to her previous exacerbations of her low back pain. History provided by: Patient looper fixer used: No Patient History Past Medical History: [...] back pain without sciatica No data recorded [place] Coma Scale Score: 15 (01/24/24 2011 : Coty Diego LPN) Medical Decision Making Patient was given one-time dose of morphine. Should follow-up with her surgeon as scheduled for herprocedure. Return with any worsening symptoms or additional concerns. Procedure Procedures ROX Ennis 01/24/242015 [facility] Work Phone: 1(312) 919-204210-31-2024 Hospital Discharge instructions Patient Education 01/23/2024 18:34:26 Abdominal Pain, Adult, Iatg-ns-Dhmd Abdominal Pain, Adult Many things can cause belly (abdominal) pain. In most cases, belly pain is not a serious problem and can be watched and treated at home. But in some cases, it can be serious. Your doctor will try to find the cause of your belly pain. Follow these instructions at home: Medicines Take pmnc-cgx-vnuyrvw and prescription medicines only as told by [...] provider. Document Revised: 12/26/2022 Document Reviewed: 12/26/2022 Pressy Patient Education 2023 Stratus5. Follow Up Care 01/23/2024 13:54:29 With:Cheyanne Rosas Address: [address] [place] [address], [facility] [address] [place] [phone] Business (1) When:01/26/2024 18:34:07 Comments:Call to schedule a follow-up appoint with your family physician in the next 2 to 3 days. Continue to elevate your feet and wear compression stockings. Return to ED with any new or worsening symptoms. [facility] 10-31-2024 NoteED Patient Education Note Gastroenterology Abdominal Pain, Adult Many things can cause belly (abdominal) pain. In most cases, belly pain is not a serious problem and can be watched and treated at home. But in some cases, it can be serious. Your doctor will try to find the cause of your belly pain. Follow these instructions at home: Medicines ??? Take rnme-way-rhgveqq and prescription medicines only as told by [...] provider. Document Revised: 12/26/2022 Document Reviewed: 12/26/2022 Pressy Patient Education ? 2023 Stratus5.[facility] 01-23-2024 Evaluation + Plan noteExtracted from: Title:ED Note Author:Zhane Castro PA-C te:01/23/24 Abdominal pain, RUQ (R10.11: Right upper [...] day(s), # 6 tab(s), Refills(s) 0, Pharmacy: [facility]/pharmacy #[id number], 160, cm, 01/23/24 14:03:00 EDT, Height/Length Dosing, [...] day(s), # 5 tab(s), Refills(s) 0, Pharmacy: [facility]/pharmacy #[id number], 160, cm, 01/23/24 14:03:00 EDT, Height/Length Dosing, 114.8, kg, 01/23/24 14:03:00 EDT, Weight Dosing ECG 12 Lead Adult US Lower Extremity Venous Duplex Bilateral XR Chest Single View Future Scheduled Tests Laboratory* TSH With T4fr Reflex 07/17/23 * Urinalysis with Micro 07/17/23 * Lipid Panel 07/17/23 * Drug Screen Urine 07/17/23 Radiology* MA Mamm Screen w/CAD if perf and 3D Kenan 07/17/23 [facility] 10-29-2024 Emergency department Note* ROX Rivero - 01/21/2024 1:56 PM EDT Emergency Department Encounter [facility] EMERGENCY MEDICINE Patient: Jerad Tracy : 1975 Date of Evaluation: 01/21/2024 ED Provider: ROX Rivero Chief Complaint Chief Complaint Patient presents with Back Pain HAMILTON (Location/Symptom, Timing/Onset, Context/Setting, Quality, Duration, Modifying Factors, Severity) Note limiting factors. Limitations to History: none Historian: self Records reviewed: EMR inpatient and outpatient notes, Care Everywhere Jerad Tracy is a 48 y.o. female who presents to the emergency department complaining of left lowerextremity numbness, pain, has a known disc herniation to L4, L5 and is scheduled for surgery on tbf52xs, is on oxycodone, Zanaflex with minimal relief of symptoms. Denies any new urinary or bowel incontinence. ROS: Review of Systems 14 systems reviewed and otherwise acutely negative except as in the HAMILTON. Past History Past Medical History: Diagnosis Date [...] min Stress: No Stress Concern Present (01/03/2024) [employer] - Occupational Stress Questionnaire Feeling of Stress : Not at all Social Connections: Socially Isolated (01/03/2024) Social Connection and Isolation Panel [NHANES] Frequency of Communication with Friends and Family: More than three times a week Frequency of Social Gatherings with Friends and Family: Once a week Attends [employer] Services: Never Active Member of Clubs or [...] provider for clarification. ROX Rivero APRN-CNP 01/21/24 1734 * Bree Cordoba RN - 01/21/2024 1:56 [...] hr hands and ankles. documented in this [facility] Work Phone: 1(432) 485-976510-29-2024 Emergency department Triage note* Bree Cordoba RN [...] noticed swelling in hr hands and ankles. [facility] Work Phone: 1(248) 525-916110-29-2024 Physician Emergency department Note* ROX Rivero - 01/21/2024 1:56 PM EDT Emergency Department Encounter [facility] EMERGENCY MEDICINE Patient: Jerad Tracy : 1975 Date of Evaluation: 01/21/2024 ED Provider: ROX Rivero Chief Complaint Chief Complaint Patient presents with Back Pain HAMILTON (Location/Symptom, Timing/Onset, Context/Setting, Quality, Duration, Modifying Factors, [...] otherwise acutely negative except as in the HAMILTON. Past History Past Medical History: Diagnosis Date [...] min Stress: No Stress Concern Present (01/03/2024) [employer] [employer] [employer] - Occupational Stress Questionnaire Feeling of Stress : Not at all Social Connections: Socially Isolated (01/03/2024) Social Connection and Isolation Panel [NHANES] Frequency of Communication with Friends and Family: More than three times a week Frequency of Social Gatherings with Friends and Family: Once a week Attends [employer] Services: Never Active Member of Clubs or [...] to contact the dictating provider for clarification. Alana Lindquist APRN-MARINA Lindquist APRN-MARINA 01/21/24 1734 [facility] Work Phone: 1([phone]) 239-468610-22-2024 Hospital Discharge instructions Patient Education 01/14/2024 20:55:36 [...] pull them backward. Do not sit or imaging administrator one place for too long. Take brief [...] to your body. ?Avoid twisting. Medicines Take nhet-ftu-angbtxy and prescription medicines only as told by [...] keep your pee (urine) pale yellow. ?Take hceu-jed-jdpidvn or prescription medicines. ?Eat foods that are [...] provider. Document Revised: 10/29/2022 Document Reviewed: 10/29/2022 [email or web address] Patient Education 2023 Stratus5. Follow Up Care 01/14/2024 19:16:02 With:Cheyanne Rosas Address: Arturo [address], [address] [address]- Business (1) When:01/17/2024 20:53:26 Comments:Call the office [...] breath, or any new or worsening symptoms. [facility] 10-22-2024 NoteED Patient Education Note Orthopedics [...] them backward. ??? Do not sit or imaging administrator one place for too long. ??? Take [...] body. ? Avoid twisting. Medicines ??? Take qvks-qmr-ptxehqh and prescription medicines only as told by [...] your pee (urine) pale yellow. ? Take irws-bfw-wajvzly or prescription medicines. ? Eat foods that [...] provider. Document Revised: 10/29/2022 Document Reviewed: 10/29/2022 [employer] Patient Education ? 2023 Stratus5.[facility] 01-14-2024 Evaluation + Plan noteExtracted from: Title:ED [...] w/CAD if perf and 3D Kenan 07/17/23 [facility] 10-22-2024 History of Present illness Narrative* [...] She has done physic al therapy at [facility] and continues to do home exercises. [...] dehiscence. Judah Woodard MD documented in this [facility] Work Phone: 1(728) 301-581110-21-2024 Emergency department Note* Kecia Huff APRN-MARINA - 01/13/2024 1:07 PM EDT HPI Chief Complaint Patient presents with Back Pain Pt here for low back pain sees the surgeon tomorrow can't take the pain 48-year-old female presents emergency department, complaining of back pain. Patient states she has known slipped disc, recently at MRI and is due to see spine surgery at [facility] tomorrow. Patient states today pain is worse. [...] of pain medication. History provided by: Patient looper fixer used: No Patient History Past Medical History: [...] additional concerns. Procedure Procedures ROX Ennis 01/13/24 1446 documented in this [facility] Work Phone: 1([phone]) 401-857410-21-2024 Physician Emergency department Note* ROX Ennis - 01/13/2024 1:07 PM EDT HPI Chief Complaint Patient presents with Back Pain Pt here for low back pain sees the surgeon tomorrow can't take the pain 48-year-old female presents emergency department, complaining of back pain. Patient states she has known slipped disc, recently at MRI and is due to see spine surgery at [facility] tomorrow. Patient states today pain is worse. [...] of pain medication. History provided by: Patient looper fixer used: No Patient History Past Medical History: [...] additional concerns. Procedure Procedures ROX Ennis 01/13/24 1446 [facility] Work Phone: 1([phone]) 398-942810-18-2024 Emergency department Note* Germaine Blair PA-C - [...] of discharge and was discharged home with [facility]. Patient states that she is developing worsening [...] at the level of L4-L5, contributing to vqtp-gh-qdxicuux spinal canal and mild left-sided neural foraminal narrowing and likely abutment/effacement of the traversing left L5 nerve. 2. No new abnormality is identified in the lumbar spine in the interim to recent MRI on 01/01/2024. No new posterior disc contour abnormality or spinal canal stenosis is present. MACRO: None Signed by: Bernadette Tapia 01/10/2024 9:34 PM Dictation workstation: [id number] Procedures Medical Decision Making I consulted with [...] she was admitted to the hospital at [facility] with worsening of symptoms. She had an [...] Germaine Blair PA-C 01/10/242217 documented in this [facility] Work Phone: 1(308) 506-365010-18-2024 Physician Emergency department Note* Germaine Blair PA-C [...] of discharge and was discharged home with [facility]. Patient states that she is developing worsening [...] at the level of L4-L5, contributing to zorx-vs-hdimrads spinal canal and mild left-sided neural foraminal narrowing and likely abutment/effacement of the traversing left L5 nerve. 2. No new abnormality is identified in the lumbar spine in the interim to recent MRI on 01/01/2024. No new posterior disc contour abnormality or spinal canal stenosis is present. MACRO: None Signed by: Bernadette Tapia 01/10/2024 9:34 PM Dictation workstation: [id number] Procedures Medical Decision Making I consulted with [...] she was admitted to the hospital at [facility] with worsening of symptoms. She had an [...] Lumbar disc herniation Germaine Blair PA-C 01/10/242217 [facility] Work Phone: 1([phone]) 818-180710-16-2024 Hospital course Narrative* Shelton Beck DO - 01/08/2024 12:42 PM EDT Discharge Diagnosis [...] Center 01/14/2024 1:00 PM Judah Woodard MD [id number] East 01/17/2024 9:20 AM Marlee Fitzpatrick MD [id number] West 06/29/2024 8:00 AM Chidi Joseph MD [id number] West Shelton Beck DO documented in this [facility] Work Phone: 1([phone] 923-103210-16-2024 History of Present illness Narrative* Kindra Kowalski RN - 01/08/2024 11:10 AM EDT 01/08/24 1110 Discharge Planning Home or Post Acute Services In home services Type of Home Care Services Home PT;Home OT Expected Discharge Disposition Home H Met with patient at bedside to discuss discharge plans. Explained that patient is not eligible for SNF but I could set her up with [facility] for pt/ot. Patient is agreeable. Patient lives in [place] which limits the available [facility] agencies. Spoke with [facility] and they do not service that area. Referralssent in careport- need accepting facility. * Shelton Beck DO - 01/07/2024 8:14 PM EDT Jerad [...] concern for spondylolisthesis. COMPARISON: None. ACCESSION NUMBER(S): [id number] ORDERING CLINICIAN: ANGELA GONZALEZ FINDINGS: Multiple views of the lumbar spine are obtained. Alignment is intact. The vertebral body heights are preserved. Disc space loss at L4/L5 with endplate sclerosis and osteophytes . No acute fracture-dislocation. Impression: Discogenic degenerative changes as described. Signed by: Danielle Orozco 01/02/2024 9:15 AM Dictation workstation: [id number] Physical Exam Constitutional: Obese, pleasant, alert active, [...] been asking for pain meds. * Mayank Matthew, PT - 01/07/2024 1:58 PM EDT Physical Therapy Physical Therapy Evaluation Patient Name: Jerad Collins Department: [place] [address] Room: [address] [place] [address] Today's Date: 01/07/2024 Time Calculation Start Time: [...] worsening of symptoms. Referred By: Oanh Gallo (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) Past Medical History Relevant to Rehab: Past [...] Prior Function Per Pt/Caregiver Report Level of [place]at[place]: Independent with ADLs and functional transfers, Independent with homemaking with ambulation Receives Help From: (Significant other) ADL Assistance: Independent Homemaking Assistance: Independent Ambulatory Assistance: (Pt reports recent FWW usage since last admission. 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) Hand Dominance: Right Prior Function Comments: Pt [...] Strength: Deficits, Due to pain Outcome Measures: [facility] Basic Mobility Turning from your back to [...] Therapy Evaluation Patient Name: Jerad Collins Department: [place] [address] Room: [address] [place] [address] Today's Date: 01/07/2024 Time Calculation Start Time: 1039 Stop Time: 1054 Time Calculation (min): 15 min Assessment: OT Assessment: Impaired ADLs Prognosis: Excellent Barriers to Discharge: None Evaluation/Treatment Tolerance: Patient limited by pain Medical Staff Made Aware: Yes End of Session Communication: Bedside nurse, Scrap Bunch Maker End of Session Patient Position: Bed, 3 [...] chronic low back pain Referred By: Jose Gallo, 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 Past Medical History Relevant to Rehab: Past [...] Family/Caregiver Present: No Prior to Session Communication: Scrap Bunch Maker Patient Position Received: Bed, 3 rail up, [...] Toilet: Handicapped height Prior Function: Level of [place]at[place]: Independent with ADLs and functional transfers, Independent with homemaking with ambulation Receives Help From: Family ADL Assistance: Independent Homemaking Assistance: Independent Ambulatory Assistance: (approx 1 week ago using FWW) Vocational: Other (Comment) (On medical leave, 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 ADL: LE Dressing Assistance: Stand by LE [...] and LUE LUE: Within Functional Limits Outcome Measures:[facility] Daily Activity Putting on and taking off [...] Exercises/Activities, Patient/Caregiver Asked AppropriateQuestions [facility] Work Phone: [phone]) 147-115110-16-2024 Plan of care note* Care Plan - Berenice Collazo RN - 01/08/2024 9:55 AM EDT The patient's goals for the shift include maintain safety The clinical goals for the shift include maintain safety Over the shift, the patient did not make progress toward the following goals. Barriers to progression include weakness. Recommendations to address these barriers include safety precautions. [facility]10-16-2024 Miscellaneous Notes* Care Plan - Berenice [...] the shift Outcome: Progressing documented in this [facility] Work Phone: 1(908) 554-249010-15-2024 Nurse Note* Daysi Santos RN - 01/07/2024 11:48 PM EDT Daysi gave report to Mary Ann; whom assumed care of patient [facility] Work Phone: [phone] 432-863910-15-2024 Nurse Note* Daysi Santos RN - 01/07/2024 11:48 PM EDT Daysi gave report to Mary Ann; whom assumed care of patient documented in this [facility] Work Phone: 1([phone]) 224-997310-15-2024 Plan of care note* Care Plan - Daysi Santos RN - [...] monitored and maintained or improved Outcome: Progressing [facility] Work Phone: 1([phone]) 709-477010-15-2024 Plan of care note* Care Plan - [...] for fall in the hospital Outcome: Progressing [facility]10-15-2024 Plan of care note* Care Plan [...] pain meds throughout the shift Outcome: Progressing [facility]10-14-2024 History and physical note* Jose Gallo, 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 - 01/06/2024 11:28 PM EDT History Of [...] OT Anxiety/depression-continue Prozac DVT prophylax-Lovenox ROX Bonds [facility] Work Phone: [phone] 249-294910-14-2024 History and physical note* ROX Bonds - [...] DVT prophylax-Lovenox ROX Bonds [facility] Work Phone: [phone] 439-993510-14-2024 Emergency department Note* Allyson Navarrete RN - [...] to manage her pain. [facility] Work Phone: [phone]) 668-674310-14-2024 Emergency department Triage note* Allyson Navarrete RN [...] at home trying to manage her pain. [facility] Work Phone: 1([phone]) 636-291510-14-2024 Hospital Discharge instructions Patient Education 01/06/2024 13:12:37 [...] pull them backward. Do not sit or imaging administrator one place for long periods of time. [...] a greater risk of getting burned. Take unxv-pjm-bsmipom and prescription medicines only as told by [...] provider. Document Revised: 09/14/2021 Document Reviewed: 09/14/2021 Pressy Patient Education 2023 Stratus5. Follow Up Care 01/06/2024 11:36:43 With:Cheyanne Rosas Address: Arturo Post, [facility] [address] [address]- Business (1) When:01/09/2024 13:06:02 [facility] 10-14-2024 NoteED Patient Education Note Orthopedics [...] them backward. ? Do not sit or imaging administrator one place for long periods of time. [...] greater risk of getting burned. ? Take rwyb-jjl-elfwpai and prescription medicines only as told by your health care provider. General instructions ? Sleep on a firm mattress in a comfortable position. Try lying on your side with your knees slightly bent. If you lie on your back, put a pillow under your knees. ? Ask yo (more content not included)...[facility]10-12-2024 History of Present illness Narrative* Seun Sher, OT - 01/04/2024 1:43 PM EDT Occupational Therapy Evaluation Patient Name: Jerad Collins Department: [facility] Room: [facility]-A Today's Date: 01/04/2024 Time Calculation Start Time: [...] L LE numbness and pain Referred By: Clintudishelbi Past Medical History Relevant to Rehab: Past [...] Adaptive Equipment: None Prior Function: Level of Gratiot: Independent with ADLs and functional transfers Receives [...] Gross Grasp: Functional Coordination: Functional Outcome Measures: [facility] Daily Activity Putting on and taking off [...] concern for spondylolisthesis. COMPARISON: None. ACCESSION NUMBER(S): [id number] ORDERING CLINICIAN: ANGELA GONZALEZ FINDINGS: Multiple views of the lumbar spine are obtained. Alignment is intact. The vertebral body heights are preserved. Disc space loss at L4/L5 with endplate sclerosis and osteophytes . No acute fracture-dislocation. Impression: Discogenic degenerative changes as described. Signed by: Danielle Orozco 01/02/2024 9:15 AM Dictation workstation: [id number] Physical Exam Constitutional: Obese, pleasant, alert active, [...] Therapy Evaluation Patient Name: Jerad Collins Department: [facility] Room: [address] [place] [address]- Today's Date: 01/03/2024 Time Calculation Start Time: [...] Prior Function Per Pt/Caregiver Report Level of [place]at[place]: Independent with ADLs and functional transfers, Independent with homemaking with ambulation Receives Help From: (SO when he is not traveling for work) ADL Assistance: Independent Homemaking Assistance: Independent Ambulatory Assistance: Independent Vocational: Other (Comment) (Pt on medical leave; 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 N Transportation Needs In the [...] relatives? Once How often do you attend advent or uatsdin services? Never Do you belong to any clubs or organizations such as advent groups, unions, fraternal or athletic groups, or [...] In the past 12 months has the [employer], gas, oil, or water Cap That threatened to shut off services in your home? No Health Literacy How often do you need to have someone help you when you read instructions, pamphlets, or other written material from your doctor or pharmacy? Never * Fozia Daly RN - 01/03/2024 2:30 PM EDT 01/03/24 1534 [facility] Disability Status Are you deaf or do [...] 1535 Discharge Planning Living Arrangements Spouse/significant other ([phone]) Support Systems Spouse/significant other;Children Assistance Needed CAN DOFFER; Independent w/ADL/IADL, no asst device, but currently [...] were you homeless or living in a [place] (including now)? N Transportation Needs In the past 12 months, has lack of transportation kept you from medical appointments or from getting medications? no (PCP listed, scheduled appointment 01/17/2024/family will drive to appointment) In the past 12 months, has lack of transportation kept you from meetings, work, or from getting things needed for daily living? No Scrap Bunch Maker Note: Met patient at bedside to discuss discharge planning, explained my role as director of healthcare systems Plan: per chart review/ Neurosurgery Recommend pain management team consultation. Status: Inpatient d/t Left leg weakness,spinal stenosis of lumbar region Payor: [facility] Medicaid Disposition: PT/OT evals pending Fozia MARQUEZ RN TCC * Jazmyn Ohara, 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 - 01/02/2024 9:48 AM EDT Jerad Collins [...] concern for spondylolisthesis. COMPARISON: None. ACCESSION NUMBER(S): [id number] ORDERING CLINICIAN: ANGELA GONZALEZ FINDINGS: Multiple views of the lumbar spine are obtained. Alignment is intact. The vertebral body heights are preserved. Disc space loss at L4/L5 with endplate sclerosis and osteophytes . No acute fracture-dislocation. Impression: Discogenic degenerative changes as described. Signed by: Danielle Orozco 01/02/2024 9:15 AM Dictation workstation: [id number] Physical Exam Vitals reviewed. Constitutional: Appearance: Normal [...] by: Danielle Orozco 01/02/2024 9:15 AM Dictationworkstation: [id number] Assessment/Plan Acute worsening of chronic low back [...] BMP and CBC in AM Jazmyn Ohara APRN-BOX SEALING 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 * Oliva Alyciao - 01/01/2024 8:41 PM EDT Pharmacy Medication History Review Jerad Collins is a 48 y.o. female admitted for No Principal Problem: There is no principal problem currently on the Problem List. Please update the Problem List and refresh.. Pharmacy reviewedthe patient's wzglx-mb-mfirlcumi medications and allergies for accuracy. The list below reflectives the updated CAN DOFFER list. Please review each medication in order [...] Below are additional concerns with the patient's CAN DOFFER list. The following updates were made to the Prior to Admission medication list: Source of Information: Medications ADDED: N/a Medications CHANGED: N/a Medications REMOVED: N/a Medications NOT TAKING: N/a Allergy reviewed : Yes Comments: confirmed meds with patient Oliva Mccullough [facility] Work Phone: [phone]) 189-137210-12-2024 Plan of care note* Care Plan - [...] include patient will remain free of falls [facility]10-12-2024 Miscellaneous Notes* Care Plan - Yaritza [...] remain free from falls documented in this [facility] Work Phone: [phone] 631-395610-12-2024 Plan of care note* Care Plan - Suzie Bello RN - 01/04/2024 1:11 AM EDT The patient's goals for the shift include vss The clinical goals for the shift include Patient will remain HDS Over the shift, the patient did not make progress toward the following goals. Barriers to progression include n/a. Recommendations to address these barriers include n/a. [facility]10-11-2024 Note* Significant Event - Rashad Christiansen [...] decompression. (Follow-up will be arranged by neurosurgery) [facility] Work Phone: [phone]) 263-527810-10-2024 Plan of care note* Care Plan - Suzie Bello RN - 01/02/2024 10:21 PM EDT The patient's goals for the shift include vss The clinical goals for the shift include Patient will remin HDS Over the shift, the patient did not make progress toward the following goals. Barriers to progression include n/a. Recommendations to address these barriers include n/a. [facility] Work Phone: [phone] 320-121610-09-2024 Plan of care note* Care Plan - Maria Alejandra Wells RN - 01/01/2024 11:57 PM EDT The patient's goals for the shift include sleep comfortable The clinical goals for the shift include pain manage below 6/10 [facility]10-09-2024 Plan of care note* Care Plan - Joseph Hollins RN - 01/01/2024 11:41 PM EDT The patient's goals for the shift include decrease in pain The clinical goals for the shift include remain free from falls [facility] Work Phone: [phone] 971-537510-09-2024 History and physical note* Simon Dominguez MD [...] COMPARISON: Lumbar spine MRI 12/18/2023 ACCESSION NUMBER(S): [id number] ORDERING CLINICIAN: MICHELE LION TECHNIQUE: Multiplanar multisequence [...] by: Claudio Balderas01/01/2024 5:46 PM Dictation workstation: [id number] Assessment/Plan Assessment & Plan Acute worsening of [...] care of this patient. Simon Dominguez MD [facility] Work Phone: 1([phone]) 496-876510-09-2024 History and physical note* Simon Dominguez MD [...] COMPARISON: Lumbar spine MRI 12/18/2023 ACCESSION NUMBER(S): [id number] ORDERING CLINICIAN: MICHELE LION TECHNIQUE: Multiplanar multisequence [...] by: Claudio Balderas01/01/2024 5:46 PM Dictation workstation: [id number] Assessment/Plan Assessment & Plan Acute worsening of [...] patient. Simon Dominguez MD documented in this [facility] Work Phone: 1([phone]) 406-125110-09-2024 NoteModerate canal stenosis at L4-5 secondary to disc bulge with crowding of the cauda equina nerve roots, slightly progressed from previous MRI 12/18/2023. Left paracentral disc protrusion at this level likely contacts the traversing left L5 nerve root. No abnormal enhancement. Signed by: Claudio Balderas 01/01/2024 5:46 PM Dictation workstation: [id number] Emergency department Note * GIORGIO Perez - 01/01/2024 3:45 PM EDT Community Resource Name:No primary care physician Phone Number: Staff Member: Tracee Maurice Discussed the following topics on behalf of the patient: [] Behavioral Health Assistance [] Case Management [] Grocery Worker Assistance [] Digital Equity Assistance [] Dental [...] from named Dr. Marlee Fitzpatrick and Raimundo frazier. CHW updated the patient chart with the physician name added. Patient expressed appreciation. Responsible Staff GIORGIO Perez Department [facility] ED Targets GIORGIO Perez 01/01/24 6010 [facility]10-09-2024 Emergency department Note* GIORGIO Perez - 01/01/2024 3:45 PM EDT Community Resource Name:No primary care physician Phone Number: Staff Member: Tracee Maurice Discussed the following topics on behalf of the patient: [] Behavioral Health Assistance [] Case Management [] Grocery Worker Assistance [] Digital Equity Assistance [] Dental [...] from named Dr. Marlee Fitzpatrick and Raimundo frazier. CHW updated the patient chart with the physician name added. Patient expressed appreciation. Responsible Staff GIORGIO Perez Department [facility] ED Targets GIORGIO Perez 01/01/24 1554 * KASH Kay - 01/01/2024 12:11 PM EDT Chronic Lower back pain and is flaring up today documented [facility] Work Phone: [phone]) 683-113810-09-2024 Emergency department Triage note* KASH Kay - 01/01/2024 12:11 PM EDT Chronic Lower back pain and is flaring up today [facility] Work Phone: [phone] 439-989710-07-2024 Emergency department Note* Francisco J Daley PA-C [...] data recorded Gadiel Coma Scale Score: 15 (12/30/231911 : Elke [...] J Daley PA-C 12/30/231943 documented in this [facility] Work Phone: 1([phone]) 965-318010-07-2024 Physician Emergency department Note* Francisco J Daley [...] chronic low back pain No data recorded [place] Coma Scale Score: 15 (12/30/231911 : Elke [...] Procedure Procedures Francisco J Daley PA-C 12/30/231943 [facility] Work Phone: 1([phone]) 757-862410-04-2024 History of Present illness Narrative* Elke Adams MD - 12/27/2023 2:[address] [facility] Neurosurgery Diagnosis Jerad Collins was seen [...] SCS trial w/ [place] on 08/21/23, and subsequentperc thoracic SCS placement [...] trial w/ [place] on 08/21/23, and subsequent perc thoracic SCS placement w/ [place] on 09/23/23. [...] the opposite side. However, patient presented back tot ED on 10/29 for severe incisional pain; [...] tender and c/d/i Results documented in this [facility] Work Phone: 1([phone]) 240-362510-04-2024 Hospital Discharge instructions Patient Education 12/26/2023 22:27:28 [...] home: Managing pain, stiffness, and swelling Take shav-xnu-ipmdrkm and prescription medicines only as told by [...] each day. Do not sit, drive, or imaging administrator one place for more than 30 minutes [...] put less stress on your back. Take hogu-enr-ebudiwm and prescription medicines only as told by your health care provider, and apply heat or ice as told. This information is not intended to replace advice given to you by your health care provider. Make sure you discuss any questions you have with your health care provider. Document Revised: 06/02/2021 Document Reviewed: 06/02/2021 Elsevier Patient Education 2023 Stratus5. Follow Up Care 12/26/2023 18:04:50 With:Cheyanne Rosas Address: [address], [address] [address]- Business (1) When:12/29/2023 [facility] 10-03-2024 NoteED Patient Education Note Orthopedics [...] Managing pain, stiffness, and swelling ? Take zhgh-cnx-glnhspd and prescription medicines only as told by [...] day. ? Do not sit, drive, or imaging administrator one place for more than 30 minutes [...] arms or legs. ? (more content not included)...[facility]10-03-2024 Evaluation + Plan noteExtracted from: Title:ED Note [...] day(s), # 10 cap(s), Refills(s) 0, Pharmacy: [facility], 160, cm, 12/26/23 18:17:00 EDT, Height/Length Dosing, 114.8, kg, 12/26/23 18:17:00 EDT, Weight Dosing tizanidine, 2 mg = 1 tab(s), Oral, q8hr, X 7 day(s), # 21 tab(s), Refills(s) 0, Pharmacy: [facility], 160, cm, 12/26/23 18:17:00 EDT, Height/Length [...] w/CAD if perf and 3D Kenan 07/17/23 [facility] 10-03-2024 NoteEducation Materials Orthopedics Lumbar Sprain [...] and cold to the affected area. ? Osve-vty-hcbwwfw medicines for pain and inflammation, such as [...] health care provider. General instructions ? Take lsep-lyf-feataqd and prescription medicines only as told by your health care provider. ? Ask your health care provider if the medicine prescribed to you: ? Requires you to avoid driving or using machinery. ? Can cause constipation. You may need to take these actions to prevent or treat constipation: ? Drink enough fluid to keep your urine pale yellow. ? Take hjqi-tqh-nxbwhqs or prescription medicines. ? Eat foods that [...] care provider. Document Revised (more content not included)...[facility] Discharge instructions Patient Education 12/24/2023 17:00:04 [...] Follow these instructions at home: Medicines Take gdfw-dzz-dtqaoyk and prescription medicines only as told by [...] provider. Document Revised: 12/26/2022 Document Reviewed: 12/26/2022 Pressy Patient Education 2023 Stratus5. Follow Up Care 12/24/2023 14:06:01 With:Cheyanne Rosas Address: [address] [place] [address] [place] [address]- Business (1) When:12/27/2023 16:49:49 Comments:Make sure to follow-up with your liver doctor as discussed. Return to the emergency room if your pain gets worse, vomiting, fever or any new symptoms. [facility] 10-01-2024 NoteED Patient Education Note Gastroenterology [...] these instructions at home: Medicines ? Take ncak-voa-jrktkyp and prescription medicines only as told by [...] provider. Document Revised: 12/26/2022 Document Reviewed: 12/26/2022 [email or web address] Patient Education ? 2023 Stratus5.[facility] 12-24-2023 Evaluation + Plan noteExtracted from: Title:ED Note Author:Balbina Bryant M.D. te:12/24/23 1. Right upper quadrant abdo sung pain (R10.11: Right upper quadrant pain) Orders: dicyclomine, 20 mg = 2 cap(s), Oral, QID, # 20 cap(s), Refills(s) 0, Pharmacy: [facility], 160, cm, 12/24/23 14:30:00 EDT, Height/Length [...] w/CAD if perf and 3D Kenan 07/17/23 [facility] 10-01-2024 Evaluation + Plan note* Assessment [...] your total body weight over 6-12 months [facility] Work Phone: 1(929) 998-766210-01-2024 Miscellaneous Notes* Assessment & Plan Note - [...] weight over 6-12 months [facility] Work Phone: 1(175) 488-988410-01-2024 History of Present illness Narrative* Chidi Joseph [...] AST 20 12/23/2023 PROT 6.3 (L) 12/23/2023 [id number] 155 04/01/2023 AFP 4 12/23/2023 BEATRIZ Negative 04/01/2023 MITOAB Negative 04/01/2023 CERULOPLSM 30.7 04/01/2023 HEPATOT Reactive (A) 04/01/2023 ASMAB Negative 04/01/2023 HEPBSAB <3.1 04/01/2023 HEPBCAB Nonreactive 04/01/2023 HEPBSAG Nonreactive 04/01/2023 HEPCAB Reactive (A) 02/13/2023 INR 0.9 12/23/2023 FERRITIN 77 04/01/2023 IRON 119 04/01/2023 IRONSAT 26 04/01/2023 Lab Results Component Value Date HNGK015 <10 04/01/2023 CEPG299 <10 04/01/2023 Lab Results Component Value Date [...] Harshad Tran 12/24/2023 6:42 AM Dictation workstation: [id number] === 12/18/23 === MR THORACIC SPINE W [...] the cervical spine as detailed above, with pmbt-tv-crebimwp narrowing present at the level of C6-C7 [...] Nevarez . This study was interpreted at [place], [place]. MACRO: None Signed by: Bernadette Tapia 12/19/2023 2:07 AM Dictation workstation: [id number] === 12/21/23 === CT LUMBAR SPINE WO IV CONTRAST - Impression - No acute fracture or traumatic subluxation of the lumbar spine. Lumbar spondylosis most pronounced at L4/L5. MACRO: None. Signed by: Tomás Hercules 12/21/2023 10:40 PM Dictation workstation: [id number] Hepatic fibrosis, advanced fibrosis This patient has [...] weight over 6-12 months documented in this [facility] Work Phone: 1(268) 524-492610-01-2024 Instructions* Patient Instructions* Elke Haas RN - 12/24/2023 10:40 AM EDT If you have any questions or need assistance, please don't hesitate to contact us. Our offices are located at [facility]. Please use the numbers below when calling. Dr. Joseph: Office [phone] Hepatology Nurse Coordinator: Elke SEXTON [phone] [phone] (See below for department name when scheduling) [...] The [facility] is located at 3 locations: [facility], [facility] PLEASE DO NOT EAT OR DRINK 3 HOURS BEFORE YOUR EXAM Due : Before next visit [x] FOLLOW UP (Department Gastro) Due : June [] Dr. Joseph Locations: MON: ANTHONY ([address]) 8:00 AM - 12:00 PM TUES: ANTHONY ([address]) 8:00 AM - 3:40 PM documented in this [facility] Work Phone: 1(658) 886-618609-20-2024 Hospital Discharge instructions Patient Education 12/13/2023 14:15:46 Allergies, Adult, Aazn-ek-Yyoa Allergies, Adult An allergy is when your [...] instructions at home: Medicines Take or apply evli-twn-mxmybid and prescription medicines only as told by [...] provider. Document Revised: 11/21/2022 Document Reviewed: 11/21/2022 Pressy Patient Education 2023 Stratus5. Follow Up Care 12/13/2023 13:35:05 With:Cheyanne Rosas Address: [facility] [address], [facility] A [place] [phone]- Business (1) When:12/16/2023 14:02:00 [facility] [phone] NoteED Note-Nursing Pt left prior to dc papers and [facility] NoteED Patient Education Note Immunology Allergies, Adult [...] at home: Medicines ? Take or apply ieno-nut-kwjwrux and prescription medicines only as told by [...] provider. Document Revised: 11/21/2022 Document Reviewed: 11/21/2022 Elsevier Patient Education ? 2023 Pressy AmadaAdrienAdena [facility] 12-05-2023 NoteED Patient Education Note Dermatology Wound [...] and water are not available, use hand auto claim representative. ? Change your dressing as told by [...] by your health care provider. ? Take txpj-xvb-ljsqijp and prescription medicines only as told by [...] drive yourself to the (more content not included)...[facility]09-11-2024 Emergency department Note* Cheyanne Powers RN - 12/04/2023 11:32 PM EDT Patient discharged to home, alert and oriented, skin warm, dry and pink. Denies needs and or questions. Will follow-up as directed, patient encouraged to return for worsening or new symptoms or otherconcerns. [facility]-3957 Emergency department Note* Cheyanne Powers RN - [...] Her previous surgeries were done in the [place] area at the [facility]. Because of the severe pain she presentsto [...] in a car driving back home from [place] to [place]. Startedto have severe low back pain which [...] with her spine surgeon Dr. Adams at [facility] this Saturday. Pain is 9/10. REVIEW [...] Resource Strain: Low Risk (11/17/2023) Received from [facility] Overall Financial Resource Strain (CARDIA) Difficulty of Paying Living Expenses: Not hard at all Food Insecurity: Patient Declined (10/11/2023) Received from [facility] Hunger Vital Sign Worried About Running Out of Food in the Last Year: Patient declined Ran Out of Food in the Last Year: Patient declined Transportation Needs: No Transportation Needs (11/17/2023) Received from [facility] PRAPARE - Transportation Lack of Transportation (Medical): No Lack of Transportation (Non-Medical): No Physical Activity: Patient Declined (10/11/2023) Received from [facility] Exercise Vital Sign Days of Exercise per Week: Patient declined Minutes of Exercise per Session: Patient declined Stress: Patient Declined (10/11/2023) Received from [facility] [employer] [employer] - Occupational Stress Questionnaire Feeling of Stress : Patient declined Social Connections: Patient Declined (10/11/2023) Received from [facility] Social Connection and Isolation Panel [NHANES] Frequency of Communication with Friends and Family: Patient declined Frequency of Social Gatherings with Friends and Family: Patient declined Attends [employer] Services: Patient declined Active Member of Clubs or Organizations: Patient declined Attends Club or Organization Meetings: Patient declined Marital Status: Patient declined Intimate Partner Violence: Patient Declined (10/11/2023) Received from [facility] Humiliation, Afraid, Rape, and Kick questionnaire Fear of Current or Ex-Partner: Patient declined Emotionally Abused: Patient declined Physically Abused: Patient declined Sexually Abused: Patient declined Housing Stability: Low Risk (11/17/2023) Received from [facility] Housing Stability Vital Sign Unable to [...] consider dedicated adrenal imaging. Keke Beebe D.O.Workstation ID:[id number] ED COURSE / MEDICAL DECISION MAKING: Jerad Tracy is a 48 year old female who presents to the emergency department with back pain. Patient reports tonight when she was in a car driving back home from [place] to [place]. Started to have severe low back pain [...] with her spine surgeon Dr. Adams at [facility] this Saturday. Pain is 9/10. DDX: Epidural abscess, cellulitis, cauda equina, lumbar fracture, herniated disc, lumbar radiculopathy, any other emergent pathology ED Course as of 12/04/232315Dec 04, [address] Spine Lumbar With Contrast IMPRESSION: Nonspecific posterior lumbar subcutaneous fat stranding without discrete fluid collection. 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 Incidental bilateral adrenal nodules (indeterminate on the basis of this examination); consider dedicated adrenal imaging. During ED course patient remained hemodynamically stable. Tonight when she was riding in a car going back home to [place] when she had dehiscence of her surgical site in her lumbar spine and started to have back pain which prompted her ED visit. Denies any red flag symptoms fall trauma or injury.On examination there is partial dehiscence of the lumbar spine from the surgical site. Patient had spine surgery in September in [place] with Dr. Adams due to infection of [...] PA-C, 12/04/2023 11:16 PM documented in this encounterKindred [facility] DaytonPlzmok21-52-1800 Hospital Discharge instructions* Discharge Instructions* Nighat Bailey [...] sent through Care Everywhere. * Methocarbamol, ADULT ([place]izen [place]) * Back Pain ([place]) * Cyclobenzaprine, ADULT ([place]) documented in this encounterKindred Hospital DaytonOrhzyx34-37-5051 Emergency department Note* Ilya Carrillo RN - 12/04/2023 10:40 PM EDT Pt to [facility] DaytonVbubmr85-45-7330 Physician Emergency department Note* Ben Urbina MD [...] Her previous surgeries were done in the [place] area at the [facility]. Because of the severe pain she presentsto [...] by: Ben Urbina MD, 12/04/2023 10:14 PM [employer] Work Phone: [phone] Emergency department Note* Rebecca Gómez RN - 12/04/2023 9:53 PM EDT Patient arrives ambulatory to triage with c/o back pain. Patient states she had a stimulator removed a month ago, just completed a 10 hour car ride and thinks that aggravated her back. A&Ox4. [employer] SolutionsUxhhlc08-90-5418 Physician Emergency department Note* Nighat Bailey PA- C - 12/04/2023 9:53 PM EDT Images from the original note were not included. TRIAGE CHIEF COMPLAINT: Chief Complaint Patient presents with Back Pain HPI: Jerad Tracy is a 48 year old female who presents to the emergency department with back pain. Patient reports tonight when she was in a car driving back home from [place] to [place]. Startedto have severe low back pain which [...] with her spine surgeon Dr. Adams at [facility] this Saturday. Pain is 9/10. REVIEW [...] Resource Strain: Low Risk (11/17/2023) Received from [facility] Overall Financial Resource Strain (CARDIA) Difficulty of Paying Living Expenses: Not hard at all Food Insecurity: Patient Declined (10/11/2023) Received from [facility] Hunger Vital Sign Worried About Running Out of Food in the Last Year: Patient declined Ran Out of Food in the Last Year: Patient declined Transportation Needs: No Transportation Needs (11/17/2023) Received from [facility] PRAPARE - Transportation Lack of Transportation (Medical): No Lack of Transportation (Non-Medical): No Physical Activity: Patient Declined (10/11/2023) Received from [facility] Exercise Vital Sign Days of Exercise per Week: Patient declined Minutes of Exercise per Session: Patient declined Stress: Patient Declined (10/11/2023) Received from [facility] [place] [employer]ational [employer] - Occupational Stress Questionnaire Feeling of Stress : Patient declined Social Connections: Patient Declined (10/11/2023) Received from [facility] Social Connection and Isolation Panel [NHANES] Frequency of Communication with Friends and Family: Patient declined Frequency of Social Gatherings with Friends and Family: Patient declined Attends [employer] Services: Patient declined Active Member of Clubs or Organizations: Patient declined Attends Club or Organization Meetings: Patient declined Marital Status: Patient declined Intimate Partner Violence: Patient Declined (10/11/2023) Received from [facility] Humiliation, Afraid, Rape, and Kick questionnaire Fear of Current or Ex-Partner: Patient declined Emotionally Abused: Patient declined Physically Abused: Patient declined Sexually Abused: Patient declined Housing Stability: Low Risk (11/17/2023) Received from [facility] Housing Stability Vital Sign Unable to [...] VITAL SIGNS: Vitals: 12/04/23 2154 12/04/23 2155 12/04/23223812/04/232300 BP: (!) 125/91 137/75 117/69 Pulse: 92 [...] consider dedicated adrenal imaging. Keke Beebe D.O.Workstation ID:[id number] ED COURSE / MEDICAL DECISION MAKING: Jerad Tracy is a 48 year old female who presents to the emergency department with back pain. Patient reports tonight when she was in a car driving back home from [place] to [place]. Started to have severe low back pain [...] with her spine surgeon Dr. Adams at [facility] this Saturday. Pain is 9/10. DDX: Epidural abscess, cellulitis, cauda equina, lumbar fracture, herniated disc, lumbar radiculopathy, any other emergent pathology ED Course as of 12/04/23 2316 SatDec 04, [address] Spine Lumbar With Contrast IMPRESSION: Nonspecific posterior lumbar subcutaneous fat stranding without discrete fluid collection. 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 Incidental bilateral adrenal nodules (indeterminate on the basis of this examination); consider dedicated adrenal imaging. During ED course patient remained hemodynamically stable. Tonight when she was riding in a car going back home to [place] when she had dehiscence of her surgical site in her lumbar spine and started to have back pain which prompted her ED visit. Denies any red flag symptoms fall trauma or injury.On examination there is partial dehiscence of the lumbar spine from the surgical site. Patient had spine surgery in September in [place] with Dr. Adams due to infection of [...] by: Nighat Bailey PA-C, 12/04/2023 11:16 PM [facility] DaytonAdpvvr52-54-2212 Hospital Discharge instructions Patient Education 12/01/2023 14:28:11 [...] products, such as yogurt. General instructions Take phva-cbg-fyrfysv and prescription medicines only as told by [...] provider. Document Revised: 11/23/2021 Document Reviewed: 11/23/2021 Pressy Patient Education 2023 Pressy Inc. 12/01/2023 14:28:11 Flank Pain, Adult, Lsra-gq-Jtzx Flank Pain, Adult Flank pain is pain [...] Rest as told by your doctor. Take pklo-coc-cfdvtaj and prescription medicines only as told by [...] provider. Document Revised: 05/22/2021 Document Reviewed: 05/22/2021 Pressy Patient Education 2023 Stratus5. 12/01/2023 14:28:11 Abdominal Pain, Adult, Fjye-yj-Lbvr Abdominal Pain, Adult Many things can cause belly (abdominal) pain. In most cases, belly pain is not a serious problem and can be watched and treated at home. But in some cases, it can be serious. Your doctor will try to find the cause of your belly pain. Follow these instructions at home: Medicines Take fvnf-bmi-yyexwpm and prescription medicines only as told by [...] provider. Document Revised: 12/26/2022 Document Reviewed: 12/26/2022 Pressy Patient Education 2023 Stratus5. Follow Up Care 12/01/2023 11:43:39 With:Cheyanne Rosas Address: [address], [facility] [address] [address]- Business (1) When:12/04/2023 14:17:39 [facility] 09-08-2024 NoteED Patient Education Note Gastroenterology [...] such as yogurt. General instructions ? Take smel-sta-yjvbxsy and prescription medicines only as told by [...] provider. Document Revised: 11/23/2021 Document Reviewed: 11/23/2021 Pressy Patient Education ? 2023 Pressy Inc. Abdominal Pain, Adult Many things can cause belly (abdominal) pain. In most cases, belly pain is not a serious problem and can be watched and treated at home. But in some cases, it can be serious. Your doctor will try to find the cause of your belly pain. Follow these instructions at home: Medicines ? Take fgeh-dex-vweencw and prescription medicines only as told by [...] very little pee, o (more content not included)...[facility]09-08-2024 Evaluation + Plan noteExtracted from: Title:ED Note Author:Gera MILES, Kristie Jurado Date:12/01/23 1. Hypokalemia (E87.6: Hypok alemia) 2. [...] w/CAD if perf and 3D Kenan 07/17/23 [facility] 09-04-2024 Hospital Discharge instructions Patient Education [...] sitting or lying down. General instructions Take egqn-zcn-ngcndyn and prescription medicines only as told by [...] provider. Document Revised: 09/03/2022 Document Reviewed: 09/03/2022 Pressy Patient Education 2023 Stratus5. Follow Up Care 11/27/2023 17:44:18 With:Peter Forrest Address: [address] [place] [phone] Business (1) When:11/30/2023 19:33:03 With:Cheyanne Rosas Address: [address] [place] [address] [address]- Business (1) When:11/30/2023 19:32:55 [facility] 09-04-2024 Progress [facility] [address] [place] [address] Emergency Department Note Signed Patient Name: Jerad Tracy Record #: [id number] Date of : 1975 Age/Sex: 48 / [...] to have another one placed at the [facility] where she had her previous surgery. However, [...] History History Provided by: Patient Preferred Language: Citizen [place] Usual Living Arrangement: With Spouse/Significant Other Smoking [...] % Lymph % (Auto) 22 (20-35) % [place] % (Auto) 6 (4-12) % Eos % (Auto) 1 L (2-5) % Baso % (Auto) 0 (0-1) % Lymph # (Auto) 2.6 (0.5-3.5) 10'3/uL [place] # (Auto) 0.7 (0.2-0.8) 10'3/uL Eos # [...] (CLEAR) Urine pH 7.0 (5.5-8.0) Ur Specific Jamul 1.015 (1.005-1.030) Urine Protein Negative (Negative) mg/dL [...] ONE Administration Oxycodone/Acetaminophen 1 pkg 11/27/23 01:18 09/04/24 01:38 Oxycodone/Aceta 5-325 - Home Pkg (2 [...] 0RF ` Dictated By: Flex Veliz MD 11/26/237 Signed By: 11/27/23 0236 Cosigned By (if applicable): [id number] cc: [facility]09-04-2024 Radiology Diagnostic study [place] [phone] CT Scan Report Signed with Addenda Patient Name: Jerad Tracy [facility] Record #: [id number] Date of : 1975 Acc[place] t #:[id number] Age/Sex: 48 / F Location: ED Attending [...] Simmons MD Signed By: 11/27/23 0953 DD/ TD/TT: 11/27/2350 Product Expert: [facility] Exam/Order Verified? Y Exam Explained to Patient/Family? Y Was Patient Shielded?N Is Patient ? N Consent Form Completed? Hx Last Menstrual Period: NO CHANCE Does Patient have a Diabetic Device? No Diabetic Device Type: Was the Diabetic Device Removed? If NO: was Removal Consent form completed? Patient was informed of radiation exposure prior to scan? Verified by Technologist:[id number] Comment: [id number] cc: Flex Veliz MD PCP,No [facility]09-01-2024 Hospital Discharge instructions Patient Education 11/24/2023 15:09:05 Knee Sprain, Adult, Lcwf-kh-Tzoa Knee Sprain, Adult A knee sprain is [...] sitting or lying down. General instructions Take qfxt-job-sntaaej and prescription medicines only as told by [...] provider. Document Revised: 09/03/2022 Document Reviewed: 09/03/2022 Pressy Patient Education 2023 Stratus5. Follow Up Care 11/24/2023 13:15:53 With:Peter Forrest Address: [address] [place] [phone]- Business (1) When:11/27/2023 15:01:53 Comments:Call for diagnosis based follow up With:Cheyanne Rosas Address: [address] [place], [place] [address]j[place], [facility] A [address] [address]- Business (1) When:Within 3 Day(s) [facility] 09-01-2024 Evaluation + Plan noteExtracted from: Title:ED Note Author:Yaw MILES, Landon Celis te:11/24/23 Left knee sprain (S83.92XA: Sprain of unspecified site of left knee, initial encounter) Orders: acetaminophen-oxycodone, 1 tab(s), Oral, q6hr for pain for 2 day(s), 8 tab(s), Refill(s) 0, [id number], 160, cm, 11/24/23 13:46:00 EDT, Height/Length Dosing, 115, kg, 11/24/23 13:46:00 EDT, Weight Dosing acetaminophen-oxycodone, 1 tab(s), Tab, Oral, Once, Stop date 11/24/23 14:24:00 EDT, STAT, Start date 11/24/23 14:24:00 EDT diclofenac topical, 1 kennedi, Topical, QID for pain, 100 gram, Refill(s) 0, [id number], 160, cm, 11/24/23 13:46:00 EDT, Height/Length Dosing, 115, kg, 11/24/23 13:46:00 EDT, Weight Dosing XR Knee Complete 4+ Views Left Future Scheduled Tests Laboratory* TSH With T4fr Reflex 07/17/23 * Urinalysis with Micro 07/17/23 * Lipid Panel 07/17/23 * Drug Screen Urine 07/17/23 Radiology* MA Mamm Screen w/CAD if perf and 3D Kenan 07/17/23 [facility] 08-13-2024 Hospital Discharge instructions Patient Education [...] 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 Another treatment may include muscle relaxants. Take eizl-lyq-grnrdac and prescription medicines only as told by your health care provider. Ask your health care provider if the medicine prescribed to you: ?Requires you to avoid driving or using machinery. ?Can cause constipation. You may need to take these actions to prevent or treat constipation: ?Drink enough fluid to keep your urine pale yellow. ?Take msrr-hct-oogczww or prescription medicines. ?Eat foods that are [...] online and in-person support groups through: The [place] [employer]: theacpa.org Pain Connection Program: [...] provider. Document Revised: 04/21/2020 Document Reviewed: 12/29/2019 [employer] Patient Education 2022 [email or web address]. Follow Up Care 11/05/2023 19:45:47 With:Cheyanne Rosas [facility] [address] [facility] [address] [place] [phone]- Business (1) When:11/08/2023 21:14:06 Comments:Call to schedule a follow-up appointment with your family physician and/or the back surgeon for further management of care. Return to the ED with any worsening symptoms. [facility] [id number] Evaluation + Plan noteExtracted from: Title:ED Note Author:Matthew MILES, Zhane Celis te:11/05/23 Chronic lower back pain (M54 .50: [...] 08:00:00 AM Scheduled Provider:Domenic Sher DO Location:[facility] Appointment Type:Pain Management - Follow Up (FT) Future Scheduled Tests Laboratory* TSH With T4fr Reflex 07/17/23 * Urinalysis with Micro 07/17/23 * Lipid Panel 07/17/23 * Drug Screen Urine 07/17/23 Radiology* MA Mamm Screen w/CAD if perf and 3D Kenan 07/17/23 [facility] [id number] History of Present illness Narrative* Joan Dumont - 10/30/2023 7:19 PM EDT Need lumbar spine x-ray to clear pt for MRI to make sure all stimulator and internal wires are completely removed [facility] Discharge instructions Patient Education [...] and water are not available, use hand auto claim representative. Do not use disinfectants or antiseptics, such [...] Follow these instructions at home Medicines Take ubda-acd-exvygoj and prescription medicines only as told by [...] and water are not available, use hand auto claim representative. Check your incision area every day for signs of infection. Keep all follow-up visits. This is important. This information is not intended to replace advice given to you by your health care provider. Make sure you discuss any questions you have with your health care provider. Document Revised: 06/12/2021 Document Reviewed: 06/12/2021 Press[employer] Patient Education 2022 [email or web address]. 10/30/2023 12:55:31 Chronic Back Pain Chronic Back [...] pull them backward. Do not sit or imaging administrator one place for long periods of time. [...] prescription pain medicine, or muscle relaxants. Take zdwj-ott-gdscnaa and prescription medicines onlyas told by your health care provider. Ask your health care provider if the medicine prescribed to you: ?Requires you to avoid driving or using machinery. ?Can cause constipation. You may need to take these actions to prevent or treat constipation: ?Drink enough fluid to keep your urine pale yellow. ?Take ltpy-wid-wialvot or prescription medicines. ?Eat foods that are [...] provider. Document Revised: 04/20/2020 Document Reviewed: 04/20/2020 Pressy Patient Education 2022 Stratus5. Follow Up Care 10/30/2023 12:12:04 With:Cheyanne Rosas Address: [address] [place] [address] Business (1) When:11/02/2023 12:41:56 Comments:Return to the emergency room if your pain gets worse, fever or any new symptoms [facility] 08-07-2024 Evaluation + Plan noteExtracted from: Title:ED Note Author:Balbina Bryant M.D. te:10/30/23 1. Chronic lower back pain ( [...] Date:11/13/2023 08:00:00 AM Scheduled Provider:Domenic Sher DO Location:.[facility] Appointment Type:Pain Management - Follow Up (FT) Future Scheduled Tests Laboratory* TSH With T4fr Reflex 07/17/23 * Urinalysis with Micro 07/17/23 * Lipid Panel 07/17/23 * Drug Screen Urine 07/17/23 Radiology* MA Mamm Screen w/CAD if perf and 3D Kenan 07/17/23 [facility] 08-03-2024 Evaluation + Plan noteExtracted from: Title:ED Note Author:Pedro Pablo Fletcher DO Date :10/26/23 Candidal intertrigo (B37.2: Candidiasis of skin and nail) Orders: ketoconazole topical, 1 kennedi, Topical, BID for 28 day(s), 60 gm, Refill(s) 0, [id number], 160, cm, 10/26/23 2:47:00 EDT, Height/Length Dosing, 116.7, kg, 10/26/23 2:47:00 EDT, Weight Dosing Future Appointments Appointment Date:11/13/2023 08:00:00 AM Scheduled Provider:Domenic Sher DO Location:FT.[facility] Appointment Type:Pain Management - Follow Up (FT) Future Scheduled Tests Laboratory* TSH With T4fr Reflex 07/17/23 * Urinalysis with Micro 07/17/23 * Lipid Panel 07/17/23 * Drug Screen Urine 07/17/23 Radiology* MA Mamm Screen w/CAD if perf and 3D Kenan 07/17/23 [facility] 08-03-2024 Hospital Discharge instructions Patient Education [...] air conditioner or fan, if available. Apply vaum-zkc-loeabcz and prescription medicines only as told by [...] well after activity or exercise. Use a department chairperson on a cool setting to dry between [...] drying your skin and with medicines. Apply hwcr-dpy-cywugio and prescription medicines only as told by your health care provider. Keep all follow-up visits as told by your health care provider. This is important. This information is not intended to replace advice given to you by your health care provider. Make sure you discuss any questions you have with your health care provider. Document Revised: 05/23/2022 Document Reviewed: 12/25/2021 Pressy Patient Education 2022 Stratus5. Follow Up Care 10/26/2023 02:36:10 With:Cheyanne Rosas Address: [address], [facility] [address] [place] [phone] Business (1) When:10/31/2023 [facility] 07-13-2024 NoteEducation Materials Dermatology Wound Dehiscence [...] these instructions at home: Medicines ? Take tjcn-hvu-sgmxtcf and prescription medicines only as told by [...] youcannot use soap and water, use hand auto claim representative. ? Wash your wound with mild soap [...] provider. Document Revised: 03/02/2020 Document Reviewed: 03/02/2020 Pressy Patient Education ? 2022 Stratus5.[facility] [id number] Note Pt ambulator back to ED RM 6 C/O insicioin pain. Pt was in the ED recently for the same complaint. Pt had a procedure done on her lower back. Wound is red, inflamed and little bit of drainage noted. Pt was prescribed antibiotics and took all of the prescribed antibiotic. Pt is A/Ox4 call light within reach [facility]07-12-2024 Hospital Discharge instructions Patient Education 10/04/2023 15:44:00 Contact Dermatitis, Mrgd-nr-Pvfr Contact Dermatitis Dermatitis is redness, soreness, and [...] perfumes, and dyes. Medicines Take or apply fizx-abx-xktpshf and prescription medicines only as told by [...] soap and water arenot available, use hand auto claim representative. General instructions Avoid the things that caused [...] provider. Document Revised: 12/25/2021 Document Reviewed: 12/25/2021 Pressy Patient Education 2022 [employer]. 10/04/2023 15:44:00 Acute Back Pain, Adult [...] home: Managing pain, stiffness, and swelling Take gekd-nok-nkqhcpf and prescription medicines only as told by [...] each day. Do not sit, drive, or imaging administrator one place for more than 30 minutes [...] put less stress on your back. Take rlip-oms-qjqhqaq and prescription medicines only as told by your health care provider, and apply heat or ice as told. This information is not intended to replace advice given to you by your health care provider. Make sure you discuss any questions you have with your health care provider. Document Revised: 06/02/2021 Document Reviewed: 06/02/2021 [employer]y Patient Education 2022 Stratus5. 10/04/2023 15:44:00 Wound Dehiscence, Dwgi-lw-Ubjc Wound Dehiscence Wound dehiscence is when a [...] Follow these instructions at home: Medicines Take lcoa-sfr-bcdixry and prescription medicines only as told by [...] cannot use soap and water, use hand auto claim representative. ?Wash your wound with mild soap and [...] provider. Document Revised: 03/02/2020 Document Reviewed: 03/02/2020 Pressy Patient Education 2022 Stratus5. Follow Up Care 10/04/2023 14:32:53 With:Cheyanne Rosas Address: [address], [address] [place] [phone]- Business (1) When:10/07/2023 15:32:21 Comments:Call Dr for diagnosis based follow up [facility]07-04-2024 NoteEducation Materials Caregiving Pain Medicine Instructions [...] take your next dose. ? Take other wcid-kxy-jnbxhux or prescription medicines only as told by [...] your pee (urine) pale yellow. ? Take azfr-qzw-ptkvvsw or prescription medicines. ? Eat foods that [...] awake. ? Your skin (more content not included)...[facility] [id number] NotePt ambulatory back to ED RM 10, C/O lower back pain. Pt had a procedure down on the lower back at the [facility]. by Dr. Adams. 12/02 pain, the inscions is red, warm to touch. no fever. Pt stated she was not sent home on any antibiotics. Pt tried to call the hospital and was told to come to the ER. Pt is A/ox4 call light within reach. the incision is locate on her lower back to her butt crack. [facility]07-03-2024 Hospital Discharge instructions Patient Education 09/25/2023 13:47:46 [...] Follow these instructions at home: Medicines Take zmkh-fjh-gxosxuw and prescription medicines only as told by [...] such as antibiotic medicines or antihistamines. Take pxsk-mrr-lngityf and prescription medicines only as told by [...] provider. Document Revised: 12/20/2021 Document Reviewed: 12/21/2021 Pressy Patient Education 2022 Stratus5. Follow Up Care 09/25/2023 11:29:17 With:Cheyanne Rosas [facility] [address] [facility] [address] [place] [phone] Business (1) When:09/28/2023 13:36:08 Comments:Call Dr for diagnosis based follow up [facility]07-03-2024 Evaluation + Plan noteExtracted from: Title:ED [...] Date:11/13/2023 08:00:00 AM Scheduled Provider:Domenic Sher DO Location:.[facility] Appointment Type:Pain Management - Follow Up (FT) Future Scheduled Tests Laboratory* TSH With T4fr Reflex 07/17/23 * Urinalysis with Micro 07/17/23 * Lipid Panel 07/17/23 * Drug Screen Urine 07/17/23 Radiology* MA Mamm Screen w/CAD if perf and 3D Kenan 07/17/23 [facility]06-29-2024 Hospital Discharge instructions Patient Education 09/21/2023 12:23:40 Chronic Back Pain, Nnuu-vh-Mgbl Chronic Back Pain When back pain lasts [...] pull them backward. Do not sit or imaging administrator one place for long periods of time. [...] prescription pain medicine, or muscle relaxants. Take mlou-epl-zdzxzuz and prescription medicines only as told by your doctor. Ask your doctor if the medicine prescribed to you: ?Requires you to avoid driving or using machinery. ?Can cause trouble pooping (constipation). You may need to take these actions to prevent or treat trouble pooping: ?Drink enough fluid to keep your pee (urine) pale yellow. ?Take ggsg-tbo-dcooont or prescription medicines. ?Eat foods that are [...] provider. Document Revised: 04/20/2020 Document Reviewed: 04/20/2020 Pressy Patient Education 2022 Stratus5. Follow Up Care 09/21/2023 11:14:36 With:Cheyanne Rosas Address: [address] [place] [address], [facility] [address] [address]- Business (1) When:09/24/2023 12:14:29 [facility]06-29-2024 Evaluation + Plan noteExtracted from: Title:ED Note Author:Gera MILES, Kristie Jurado Date:09/21/23 1. Chronic low back pain wit h left-sided sciatica (M54.42: Lumbago with sciatica, left side) Other chronic pain (G89.29: Other chronic pain) Orders: cyclobenzaprine, 10 mg = 1 tab(s), Oral, TID, PRN for spasm, # 30 tab(s), Refills(s) 0, Pharmacy: [facility]/pharmacy #[id number], 160, cm, 09/21/23 11:20:00 EDT, [...] Date:11/13/2023 08:00:00 AM Scheduled Provider:Domenic Sher DO Location:FT.[facility] Appointment Type:Pain Management - Follow Up (FT) Future Scheduled Tests Laboratory* TSH With T4fr Reflex 07/17/23 * Urinalysis with Micro 07/17/23 * Lipid Panel 07/17/23 * Drug Screen Urine 07/17/23 Radiology* MA Mamm Screen w/CAD if perf and 3D Kenan 07/17/23 [facility]06-28-2024 Evaluation + Plan noteExtracted from: Title:ED Note Author:Robert Taylor PA-C te:09/20/23 Chronic back pain (M54.9: Do rsalgia, unspecified) Other chronic pain (G89.29: Other chronic pain) Orders: oxycodone, 10 mg = 2 tab(s), Tab, Oral, Once, Stop date 09/20/23 11:15:00 EDT, STAT, Start date 09/20/23 11:15:00 EDT, 09/20/23 11:15:00 EDT Future Appointments Appointment Date:11/13/2023 08:00:00 AM Scheduled Provider:Domenic Sher DO Location[facility] [place] Appointment Type:Pain Management - Follow Up (FT) Future Scheduled Tests Laboratory* TSH With T4fr Reflex 07/17/23 * Urinalysis with Micro 07/17/23 * Lipid Panel 07/17/23 * Drug Screen Urine 07/17/23 Radiology* MA Mamm Screen w/CAD if perf and 3D Kenan 07/17/23 [facility]06-28-2024 Hospital Discharge instructions Patient Education 09/20/2023 11:31:16 Chronic Obstructive Pulmonary Disease, Bzho-sa-Ofyd Chronic Obstructive Pulmonary Disease Chronic obstructive pulmonary [...] Follow these instructions at home: Medicines Take evsf-htt-ujnubyj and prescription medicines only as told by [...] keep yourself as healthy as possible. Take btdu-ngx-ojabwdq and prescription medicines only as told by your doctor. If you smoke, stop. Smoking makes the problem worse. This information is not intended to replace advice given to you by your health care provider. Make sure you discuss any questions you have with your health care provider. Document Revised: 01/17/2021 Document Reviewed: 01/17/2021 Pressy Patient Education 2022 Stratus5. Follow Up Care 09/20/2023 10:52:05 With:Cheyanne Rosas Address: [address] [place] [phone] Business (1) When:09/23/2023 11:16:15 [facility]06-25-2024 Hospital Discharge instructions Patient Education 09/17/2023 [...] numbers. This can be done either in [place] or metric measurements. Note that charts and online BMI calculators are available to help you find your BMI quickly and easily without having to do these calculations yourself. To calculate your BMI in [place] measurements: 1.Measure your weight in pounds [...] Centers for Disease Control and Prevention: www.cdc.gov [employer] Association: www.heart.org National Heart, Lung, and Blood [place]: www.nhlbi.nih.gov Summary Body mass index (BMI) is a number that is calculated from a person's weight and height. BMI may help estimate how much of a person's weight is composed of fat. BMI can help identify thosewho may be at higher risk for certain medical problems. BMI can be measured using [place] measurements or metric measurements. BMI charts are used to identify whether you are underweight, normal weight, overweight, or obese. This information is not intended to replace advice given to you by your health care provider. Make sure you discuss any questions you have with your health care provider. Document Revised: 12/02/2019 Document Reviewed: 10/09/2019 Pressy Patient Education 2022 Stratus5. 09/17/2023 17:50:52 Steps to Quit Smoking Steps [...] require a prescription. You can also purchase bzru-eok-bnsmeqf medicines. Medicines may have nicotine in them [...] and encouragement. Call telephone quitlines, such as 6-330-TUIK-NOW, reach out to support groups, or work [...] provider. Document Revised: 03/02/2022 Document Reviewed: 03/02/2022 Pressy Patient Education 2022 [employer] Inc. 09/17/2023 17:50:51 Health Risks of Smoking [...] Department of Health and Human Services: www.smokefree.gov Greek Lung Association: www.freedomfromsmoking.org [employer] Heart Association: www.heart.org Where to find more [...] provider. Document Revised: 03/13/2022 Document Reviewed: 03/13/2022 Pressy Patient Education 2022 Stratus5. Follow Up Care 09/17/2023 17:37:01 With:Ralph BEYER, VANESSA Aaron, [facility] Address: [facility] [address], [facility] [address] [address]- When: Unknown [facility] 06-18-2024 Hospital Discharge instructions Patient Education 09/09/2023 23:26:42 Chronic Back Pain, Nvxm-il-Qsuc Chronic Back Pain When back pain lasts [...] pull them backward. Do not sit or imaging administrator one place for long periods of time. [...] prescription pain medicine, or muscle relaxants. Take bdsj-mzp-njuukbj and prescription medicines only as told by your doctor. Ask your doctor if the medicine prescribed to you: ?Requires you to avoid driving or using machinery. ?Can cause trouble pooping (constipation). You may need to take these actions to prevent or treat trouble pooping: ?Drink enough fluid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 (1) When:Within 3 Day(s) [facility]04-24-2024 Evaluation + Plan note Future Scheduled Tests Laboratory* TSH With T4fr Reflex 07/17/23 * Urinalysis with Micro 07/17/23 * Lipid Panel 07/17/23 * Drug Screen Urine 07/17/23 Radiology* MA Mamm Screen w/CAD if perf and 3D Kenan 07/17/23 [facility] [id number] Hospital Discharge instructions Patient Education 07/17/2023 09:41:09 [...] Mental Health Services Administration (SAMHSA): findtreatment.samhsa.gov National [place] on Problem Gambling: www.ncpgambling.org Get help right away if: You have serious thoughts about hurting yourself or others. Get help right away if you feel like you may hurt yourself or others, or have thoughts about takingyour own life. Go to your nearest emergency room or: Call 911. Call the National Suicide Prevention Lifeline at or 721 in the [place].. This is open 24hours a day. Text the Crisis Text Line at 604339. Summary Addiction changes the way your brain [...] provider. Document Revised: 10/05/2021 Document Reviewed: 09/13/2021 [employer] Patient Education 2022 Stratus5. 07/17/2023 09:41:03 Managing Anxiety, Adult Managing Anxiety, [...] health careprovider. Avoid caffeine, alcohol, and certain lsqc-mwt-wlqcpym cold medicines. These may make you feel worse. Ask your pharmacist which medicines to avoid. General instructions Take kbwf-gwz-uwzhawz and prescription medicines only as told by [...] Depression Association of [place] (ADAA): www.adaa.org National Banks on Mental Illness (KATI): www.kati.org Contact a [...] department or: Call your local emergency services (612 in the [place] Call a suicide crisis helpline, such as the National Suicide Prevention Lifeline at or 377 in the [place]. This is open 24 hours a day in the [place] Text the Crisis Text Line at 134968 (in the [place] Summary Taking steps to [...] provider. Document Revised: 10/04/2021 Document Reviewed: 07/02/2021 [employer] Patient Education 2022 [employer] 07/17/2023 09:40:59 Exercising to Lose Weight Exercising [...] your health care provider or diet and food and nutrition supervisor (dietitian). This may include: ?Eating fewer calories. [...] provider. Document Revised: 05/07/2021 Document Reviewed: 05/07/2021 [employer] Patient Education 2022 Stratus5. 07/17/2023 09:40:58 BMI for Adults BMI for [...] numbers. This can be done either in [place] or metric measurements. Note that charts and online BMI calculators are available to help you find your BMI quickly and easily without having to do these calculations yourself. To calculate your BMI in [place] ([place] measurements: 1.Measure your weight in pounds [...] Centers for Disease Control and Prevention: www.cdc.gov Greek Heart Association: www.heart.org National Heart, Lung, and Blood [place]: www.nhlbi.nih.gov Summary Body mass index (BMI) is a number that is calculated from a person's weight and height. BMI may help estimate how much of a person's weight is composed of fat. BMI can help identify thosewho may be at higher risk for certain medical problems. BMI can be measured using [place] measurements or metric measurements. BMI charts are used to identify whether you are underweight, normal weight, overweight, or obese. This information is not intended to replace advice given to you by your health care provider. Make sure you discuss any questions you have with your health care provider. Document Revised: 12/02/2019 Document Reviewed: 10/09/2019 [employer] Patient Education 2022 [email or web address]. 07/17/2023 09:40:55 Heart Disease Prevention Heart Disease [...] of hard liquor (44 mL). Medicines Take bzgb-fkc-evnqxbk and prescription medicines only as told by [...] Centers for Disease Control and Prevention: www.cdc.gov/heartdisease Greek Heart Association: www.heart.org Summary Heart disease is [...] provider. Document Revised: 11/08/2021 Document Reviewed: 11/08/2021 [employer] Patient Education 2022 Stratus5. 07/17/2023 09:40:54 Form - Blood Pressure Record [...] provider. Document Revised: 11/23/2021 Document Reviewed: 11/23/2021 [employer] Patient Education 2022 [employer]. 07/17/2023 09:40:54 DASH Eating Plan DASH [...] Dairy Whole or 2% milk, cream, and mfmd-mmz-zuij. Whole or full-fat cream cheese. Whole-fat or [...] more information National Heart, Lung, and Blood [place]: www.nhlbi.nih.gov Greek Heart Association: www.heart.org Academy of Nutrition and [...] provider. Document Revised: 02/12/2020 Document Reviewed: 02/12/2020 [employer] Patient Education 2022 Stratus5. 07/17/2023 09:40:52 Health Risks of Smoking Health [...] Department of Health and Human Services: www.smokefree.gov Greek Lung Association: www.freedomfromsmoking.org Greek Heart Association: www.heart.org Where to find more [...] provider. Document Revised: 03/13/2022 Document Reviewed: 03/13/2022 [employer] Patient Education 2022 [employer]. 07/17/2023 09:40:49 Chronic Back Pain Chronic Back [...] pull them backward. Do not sit or imaging administrator one place for long periods of time. [...] prescription pain medicine, or muscle relaxants. Take syiu-dku-hqryxvw and prescription medicines onlyas told by your health care provider. Ask your health care provider if the medicine prescribed to you: ?Requires you to avoid driving or using machinery. ?Can cause constipation. You may need to take these actions to prevent or treat constipation: ?Drink enough fluid to keep your urine pale yellow. ?Take xdjx-nna-felhmmx or prescription medicines. ?Eat foods that are [...] provider. Document Revised: 04/20/2020 Document Reviewed: 04/20/2020 Pressy Patient Education 2022 [email or web address]. 07/17/2023 09:40:47 Hepatitis C Hepatitis C Hepatitis [...] Follow these instructions at home: Medicines Take nltg-ydd-uiivork and prescription medicines only as told by your health care provider. If you were prescribed an antiviral medicine, take it as told by your health care provider. Do not stop using the antiviral even if you start to feel better. Do not take any new medicines, including klxj-ohg-pyzznue medicines or supplements, unless your health care [...] water are not available, use alcohol-based hand auto claim representative. Cover any cuts or open sores on [...] contagious). Do not take any medicines, including mahh-yih-lamvcha medicines or supplements, unless your health care provider approves. This information is not intended to replace advice given to you by your health care provider. Make sure you discuss any questions you have with your health care provider. Document Revised: 01/26/2021 Document Reviewed: 01/26/2021 Pressy Patient Education 2022 [email or web address]. 07/17/2023 09:40:45 Mixed Bipolar Disorder Mixed Bipolar [...] alcohol or use drugs. General instructions Take kjeh-gnk-exwjnyd and prescription medicines only as told by your health care provider. Think about joining a support group. Your health care provider may be able to recommend one. Talk with your family and loved ones about your treatment goals and about how they can help. Keep all follow-up visits. This is important. Where to find more information National Banks on Mental Illness: kati.org National [place] of Mental Health: nimh.nih.gov Contact a health [...] department or: Call your local emergency services (053 in the [place] Call a suicide crisis helpline, such as the National Suicide Prevention Lifeline at or 630 in the [place] This is open 24 hours a day. Text the Crisis Text Line at 244735 (in the [place] Summary Mixed bipolar disorder [...] provider. Document Revised: 10/05/2021 Document Reviewed: 08/31/2021 Elsevier Patient Education 2022 [email or web address]. Follow Up Care 05/07/2023 10:08:54 With:Cheyanne Rincon [facility], [facility] Address: [address], [address] [address]- When:Within 1 Month(s) Comments:f/u labs, HTN, [facility] 04-22-2024 Evaluation + Plan [...] Appointment Date:07/17/2023 07:40:00 AM Scheduled Provider:Cheyanne Rincon Location:[facility] Appointment Type:FM New Patient - Adult Appointment Date:08/14/2023 03:15:00 PM Scheduled Provider:Domenic Sher DO Location:[facility] Appointment Type:Pain Management - Follow Up (FT) [facility]04-21-2024 Hospital Discharge instructions Patient Education 07/14/2023 [...] pull them backward. Do not sit or imaging administrator one place for long periods of time. [...] prescription pain medicine, or muscle relaxants. Take zhew-yai-nujgqvc and prescription medicines onlyas told by your health care provider. Ask your health care provider if the medicine prescribed to you: ?Requires you to avoid driving or using machinery. ?Can cause constipation. You may need to take these actions to prevent or treat constipation: ?Drink enough fluid to keep your urine pale yellow. ?Take axuz-qmw-wbhsoop or prescription medicines. ?Eat foods that are [...] provider. Document Revised: 04/20/2020 Document Reviewed: 04/20/2020 Pressy Patient Education 2022 Stratus5. Follow Up Care 07/14/2023 11:37:07 With:Follow-up with pain management tomorrow as scheduled Address:Unknown When: Unknown With:Pain Clinic: [facility] [phone] Address:Unknown When:07/15/2023 12:02:43 With:Cheyanne Rosas Address: [address], [facility] [address] [address] Business (1) When:Within 3 Day(s) [facility]04-21-2024 Evaluation + Plan noteExtracted from: Title:ED [...] Date:07/15/2023 01:45:00 PM Scheduled Provider:Dory Shepherd PA-C Location:[facility] Appointment Type:Pain Management - New (FT) Appointment Date:07/17/2023 07:40:00 AM Scheduled Provider:Cheyanne Rincon Location:[facility] Appointment Type: New Patient - Adult [facility]04-18-2024 Evaluation + Plan noteExtracted from: Title:ED [...] Appointment Date:07/17/2023 07:40:00 AM Scheduled Provider:Cheyanne Rincon Location:[facility] Appointment Type:FM New Patient - Adult [facility]04-18-2024 Hospital Discharge instructions Patient Education 07/11/2023 [...] pull them backward. Do not sit or imaging administrator one place for long periods of time. [...] prescription pain medicine, or muscle relaxants. Take sjxb-qtw-jymwupv and prescription medicines onlyas told by your health care provider. Ask your health care provider if the medicine prescribed to you: ?Requires you to avoid driving or using machinery. ?Can cause constipation. You may need to take these actions to prevent or treat constipation: ?Drink enough fluid to keep your urine pale yellow. ?Take usnp-nki-rdtvukh or prescription medicines. ?Eat foods that are [...] provider. Document Revised: 04/20/2020 Document Reviewed: 04/20/2020 Pressy Patient Education 2022 Stratus5. 07/11/2023 10:06:49 Managing Chronic Back Pain Managing [...] you do a task in which you imaging administrator one place for a long time, place [...] instructions at home: Medicines Treatment may include flbw-hcr-iwerezm or prescription medicines for pain and inflammation that aretaken by mouth or applied to the skin. Another treatment may include muscle relaxants. Take vtfo-iwm-upobxvj and prescription medicines only as told by your health care provider. Ask your health care provider if the medicine prescribed to you: ?Requires you to avoid driving or using machinery. ?Can cause constipation. You may need to take these actions to prevent or treat constipation: ?Drink enough fluid to keep your urine pale yellow. ?Take xjnk-yem-hdvpwgo or prescription medicines. ?Eat foods that are [...] online and in-person support groups through: The [place] [employer]: theacpa.org Pain Connection Program: [...] provider. Document Revised: 04/21/2020 Document Reviewed: 12/29/2019 Pressy Patient Education 2022 [email or web address]. Follow Up Care 07/11/2023 09:19:03 With:Cheyanne Rosas Address: [address], [facility] [address] [address] Business (1) When:07/14/2023 09:59:05 Comments:Make sure to follow-up with your primary doctor and the pain management. Return to the emergency room if your pain gets worse, bowel or bladder incontinence, numbness/tingling in the saddle/groin area, weakness in your legs or any new symptoms. 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 She has [...] Psychiatry Director, Division of Psychology [facility] (o) [phone] documented in this [facility] Work Phone: 1(433) 967-200804-13-2024 Hospital Discharge instructions Patient Education 07/06/2023 19:51:44 [...] home: Managing pain, stiffness, and swelling Take iwzg-tfo-verzznj and prescription medicines only as told by [...] each day. Do not sit, drive, or imaging administrator one place for more than 30 minutes [...] put less stress on your back. Take vdze-yuf-dfminsm and prescription medicines only as told by your health care provider, and apply heat or ice as told. This information is not intended to replace advice given to you by your health care provider. Make sure you discuss any questions you have with your health care provider. Document Revised: 06/02/2021 Document Reviewed: 06/02/2021 Pressy Patient Education 2022 Stratus5. Follow Up Care 07/06/2023 18:10:42 With:Cheyanne Rosas Address: [address] [place] [address] A [place] [phone] Business (1) When:Within 3 Day(s) [facility]04-13-2024 Evaluation + Plan noteExtracted from: Title:ED [...] Date:07/15/2023 01:45:00 PM Scheduled Provider:Dory Shepherd PA-C [facility] Type:Pain Management - New () Appointment Date:07/17/2023 07:40:00 AM Scheduled Provider:Cheyanne Rincon Location:[facility] Appointment Type:FM New Patient - Adult [facility]04-06-2024 Hospital Discharge instructions Patient Education 06/29/2023 [...] pull them backward. Do not sit or imaging administrator one place for long periods of time. [...] prescription pain medicine, or muscle relaxants. Take ywzk-imf-pqiooyz and prescription medicines onlyas told by your health care provider. Ask your health care provider if the medicine prescribed to you: ?Requires you to avoid driving or using machinery. ?Can cause constipation. You may need to take these actions to prevent or treat constipation: ?Drink enough fluid to keep your urine pale yellow. ?Take ipls-sjd-wcxxbqo or prescription medicines. ?Eat foods that are [...] provider. Document Revised: 04/20/2020 Document Reviewed: 04/20/2020 Pressy Patient Education 2022 [email or web address]. 06/29/2023 14:20:12 Acute Back Pain, Adult Acute [...] home: Managing pain, stiffness, and swelling Take vsbv-uvv-aogyacq and prescription medicines only as told by [...] each day. Do not sit, drive, or imaging administrator one place for more than 30 minutes [...] put less stress on your back. Take pkar-hpt-zufcqxb and prescription medicines only as told by your health care provider, and apply heat or ice as told. This information is not intended to replace advice given to you by your health care provider. Make sure you discuss any questions you have with your health care provider. Document Revised: 06/02/2021 Document Reviewed: 06/02/2021 [email or web address] Patient Education 2022 Elsevier Inc. Follow Up Care 06/29/2023 13:03:37 With:Cheyanne Rosas Address: [address], [facility] A [place] [phone] [facility] (1) When:07/02/2023 14:07:11 Comments:Follow-up with your primary care provider in 3 to 5 days. If symptoms worsen, do not improve, or new symptoms arise please report back to emergency department for further evaluation. [facility]04-06-2024 Evaluation + Plan noteExtracted from: Title:ED [...] Date:07/15/2023 01:45:00 PM Scheduled Provider:Dory Shepherd PA-C Location:[facility] Appointment Type:Pain Management - New () Appointment Date:07/17/2023 07:40:00 AM Scheduled Provider:Cheyanne Rincon Location:[facility] Appointment Type:FM New Patient - Adult [facility]04-04-2024 Hospital Discharge instructions Patient Education 06/27/2023 [...] pull them backward. Do not sit or imaging administrator one place for long periods of time. [...] a greater risk of getting burned. Take jimv-wbg-chwxhqu and prescription medicines only as told by [...] provider. Document Revised: 09/14/2021 Document Reviewed: 09/14/2021 Pressy Patient Education 2022 [email or web address]. 06/27/2023 12:37:54 Herniated Disk Herniated Disk A [...] Follow these instructions at home: Medicines Take lmmj-kcy-fbjdzsl and prescription medicines only as told by your health care provider. Ask your health care provider if the medicine prescribed to you: ?Requires you to avoid driving or using heavy machinery. ?Can cause constipation. You may need to take these actions to prevent or treat constipation: ?Drink enough fluid to keep your urine pale yellow. ?Take sokw-fme-hwxblbh or prescription medicines. ?Eat foods that are [...] provider. Document Revised: 06/29/2020 Document Reviewed: 06/29/2020 Pressy Patient Education 2022 [email or web address]. Follow Up Care 06/27/2023 11:49:45 With:Pain Clinic: [facility] [phone] Address:Unknown When:06/30/2023 12:22:32 With:Cheyanne Rosas Address: [address], [facility] [address] [address]- Business (1) When:Within 3 Day(s) [facility]04-04-2024 Evaluation + Plan noteExtracted from: Title:ED [...] prednisone, # 40 tab(s), Refills(s) 0, Pharmacy: [facility]/pharmacy #[id number], 160, cm, 06/27/23 11:54:00 EDT, [...] days., # 18 tab(s), Refills(s) 0, Pharmacy: [facility]/pharmacy #[id number], 160, cm, 06/27/23 11:54:00 EDT, Height/Length Dosing, 117.2, kg, 06/27/23 11:5... tizanidine, 4 mg = 1 tab(s), Oral, q6hr, PRN Muscle pain, # 40 tab(s), Refills(s) 0, Pharmacy: [facility]/pharmacy #[id number], 160, cm, 06/27/23 11:54:00 EDT, Height/Length Dosing, 117.2, kg, 06/27/23 11:54:00 EDT, Weight Dosing Future Appointments Appointment Date:07/17/2023 07:40:00 AM Scheduled Provider:Cheyanne Rincon Location:[facility] Appointment Type:FM New Patient - Adult [facility]04-01-2024 Evaluation + Plan noteExtracted from: Title:ED Note Author:Balbina Bryant M.D. te:06/24/23 1. Chronic lower back pain ( [...] Appointment Date:07/17/2023 07:40:00 AM Scheduled Provider:Cheyanne Rincon Location:[facility] Appointment Type:FM New Patient - Adult [facility]04-01-2024 Hospital Discharge instructions Patient Education 06/24/2023 [...] pull them backward. Do not sit or imaging administrator one place for long periods of time. [...] prescription pain medicine, or muscle relaxants. Take txxg-isx-bscsggy and prescription medicines onlyas told by your health care provider. Ask your health care provider if the medicine prescribed to you: ?Requires you to avoid driving or using machinery. ?Can cause constipation. You may need to take these actions to prevent or treat constipation: ?Drink enough fluid to keep your urine pale yellow. ?Take fytz-lui-razhfls or prescription medicines. ?Eat foods that are [...] provider. Document Revised: 04/20/2020 Document Reviewed: 04/20/2020 Pressy Patient Education 2022 Stratus5. Follow Up Care 06/24/2023 09:43:03 With:Cheyanne Rosas Address: [address], [facility] A [place] [phone] [facility] (1) When:06/27/2023 11:48:27 Comments:Follow-up with your primary doctor and your back specialist. Return to the emergency room if your pain gets worse or any new symptoms. [facility]03-30-2024 Hospital Discharge instructions Patient Education 06/22/2023 18:48:41 Viral Gastroenteritis, Adult, Alnu-yj-Lfmi Viral Gastroenteritis, Adult Viral gastroenteritis is also [...] younger than 2 years. Living in a fdc. Going on cruise ships. What are the [...] cannot use soap and water, use hand auto claim representative. Make sure that all people in your home wash their hands well and often. Take elbw-egs-mcwqxnj and prescription medicines only as told by [...] cannot use soap and water, use hand auto claim representative. This information is not intended to replace advice given to you by your health care provider. Make sure you discuss any questions you have with your health care provider. Document Revised: 01/08/2022 Document Reviewed: 01/08/2022 Pressy Patient Education 2022 Stratus5. Follow Up Care 06/22/2023 14:18:20 With:Cheyanne Rosas Address: [address], [facility] A [place] [phone] Business (1) When:06/25/2023 18:47:46 Comments:Call the office [...] weakness, or any new or worsening symptoms. [facility]03-30-2024 Evaluation + Plan noteExtracted from: Title:ED Note Author:Susu Lamar PA-C Date :06/22/23 Acute gastroenteritis (K52.9 : Noninfective gastroenteritis and colitis, unspecified) Orders: dicyclomine, 10 mg = 1 cap(s), Oral, QID, PRN Other (see comment), For abdominal cramping, # 12 cap(s), Refills(s) 0, Pharmacy: [facility]/pharmacy #[id number], 160, cm, 06/22/23 14:24:00 EDT, Height/Length Dosing, 118.5, kg, 06/22/23 14:24:00 EDT, Weight Dosing dicyclomine, 20 mg = 1 tab(s), Tab, Oral, Once, Stop date 06/22/23 18:49:00 EDT, STAT, Start date 06/22/23 18:49:00 EDT, 06/22/23 18:49:00 EDT ondansetron, 4 mg = 1 tab(s), Oral, q8hr, PRN Nausea/Vomiting, # 12 tab(s), Refills(s) 0, Pharmacy: [facility]/pharmacy #[id number], 160, cm, 06/22/23 14:24:00 EDT, Height/Length Dosing, 118.5, kg, 06/22/23 14:24:00 EDT, Weight Dosing ondansetron, 4 mg = 1 tab(s), Tab-Dis, Oral, Once, Stop date 06/22/23 18:49:00 EDT, STAT, Start date 06/22/23 18:49:00 EDT, 06/22/23 18:49:00 EDT Future Appointments Appointment Date:07/17/2023 07:40:00 AM Scheduled Provider:Cheyanne Rincon Location:[facility] Appointment Type:FM New Patient - Adult [facility]03-23-2024 Hospital Discharge instructions Patient Education 06/15/2023 [...] pull them backward. Do not sit or imaging administrator one place for long periods of time. [...] prescription pain medicine, or muscle relaxants. Take dnzx-whe-gcduiqs and prescription medicines onlyas told by your health care provider. Ask your health care provider if the medicine prescribed to you: ?Requires you to avoid driving or using machinery. ?Can cause constipation. You may need to take these actions to prevent or treat constipation: ?Drink enough fluid to keep your urine pale yellow. ?Take wwlo-xge-dfcrfcl or prescription medicines. ?Eat foods that are [...] provider. Document Revised: 04/20/2020 Document Reviewed: 04/20/2020 Pressy Patient Education 2022 Stratus5. Follow Up Care 06/15/2023 17:57:51 With:Cheyanne Rosas Address: [facility] [address], [facility] [address] [place] [phone] [facility] (1) When:06/18/2023 18:33:35 Comments:Return to the emergency room if your pain gets worse, bowel or bladder incontinence, numbness/tingling in the saddle/groin area or any new symptoms. 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 Work Phone: 1(271) 560-123903-23-2024 Physician Emergency department Note* ROX Martinez - [...] of chronic back pain ROX Martinez 06/15/23 0387 [facility] Work Phone: 1(598) 321-748903-23-2024 Evaluation + Plan noteExtracted from: Title:ED Note Author:Balbina Bryant M.D. te:06/15/23 1. Chronic back pain (M54.9: Dorsalgia, unspecified) Other chronic pain (G89.29: Other chronic pain) Orders: ketorolac, 30 mg = 1 mL, Injection, IntraMuscular, Once, Stop date 06/15/23 18:23:00 EDT, STAT, Start date 06/15/23 18:23:00 EDT, 06/15/23 18:23:00 EDT methocarbamol, 1,500 mg = 2 tab(s), Oral, TID, X 7 day(s), # 42 tab(s), Refills(s) 0, Pharmacy: [facility]/pharmacy #[id number], 160, cm, 06/15/23 18:08:00 EDT, Height/Length Dosing, 118.5, kg, 06/15/23 18:08:00 EDT, Weight Dosing orphenadrine, 60 mg = 2 mL, Injection, IntraMuscular, Once, Stop date 06/15/23 18:23:00 EDT, STAT, Start date 06/15/23 18:23:00 EDT, 06/15/23 18:23:00 EDT Future Appointments Appointment Date:07/17/2023 07:40:00 AM Scheduled Provider:Cheyanne Rincon Location:[facility] Appointment Type:FM New Patient - Adult [facility]03-19-2024 Hospital Discharge instructions Patient Education 06/11/2023 20:11:42 Chronic Back Pain, Cggv-vw-Diyl Chronic Back Pain When back pain lasts [...] pull them backward. Do not sit or imaging administrator one place for long periods of time. [...] prescription pain medicine, or muscle relaxants. Take toct-spy-ukoqpbh and prescription medicines only as told by your doctor. Ask your doctor if the medicine prescribed to you: ?Requires you to avoid driving or using machinery. ?Can cause trouble pooping (constipation). You may need to take these actions to prevent or treat trouble pooping: ?Drink enough fluid to keep your pee (urine) pale yellow. ?Take fflb-rox-kwxcfnz or prescription medicines. ?Eat foods that are [...] provider. Document Revised: 04/20/2020 Document Reviewed: 04/20/2020 Pressy Patient Education 2022 Stratus5. Follow Up Care 06/11/2023 18:49:29 With:Cheyanne Rosas Address: [address], [facility] A [place] [phone]- Business (1) When:06/14/2023 19:30:55 Comments:Take the steroids once daily and to complete the course. Use medications as prescribed as needed for pain. Please follow-up with your primary care doctor next 2 to 3 days. Please return to the ED forany new or worsening symptoms. [facility]03-19-2024 Evaluation + Plan noteExtracted from: Title:ED [...] day(s), # 9 tab(s), Refills(s) 0, Pharmacy: [facility]/pharmacy #[id number], 160, cm, 06/11/23 19:00:00 EDT, Height/Length Dosing, 118.8, kg, 06/11/23 19:00:00 EDT, Weight Dosing morphine, 2 mg = 1 mL, Injection, IntraMuscular, Once, Stop date 06/11/23 19:29:00 EDT, STAT, Start date 06/11/23 19:29:00 EDT, 06/11/23 19:29:00 EDT predniSONE, 50 mg = 1 tab(s), Oral, Daily, X 5 day(s), # 5 tab(s), Refills(s) 0, Pharmacy: [facility]/pharmacy #[id number], 160, cm, 06/11/23 19:00:00 EDT, Height/Length Dosing, 118.8, kg, 06/11/23 19:00:00 EDT, Weight Dosing predniSONE, 60 mg = 3 tab(s), Tab, Oral, Once, Stop date 06/11/23 19:29:00 EDT, STAT, Start date 06/11/23 19:29:00 EDT, 06/11/23 19:29:00 EDT Future Appointments Appointment Date:07/17/2023 07:40:00 AM Scheduled Provider:Cheyanne Rincon Location:[facility] Appointment Type:FM New Patient - Adult [facility]03-16-2024 Emergency department Note* Munira Perez RN - 06/08/2023 6:29 PM EDT Registration called for registration as pt has been up for discharge for 20 min. [id number] Emergency department Note* Munira Perez RN - [...] Discussed with attending who did evaluate patient zijp-fk-anlj, developed plan for pain control here, will be given fentanyl dose here with Zofran. Being prescription for Percocet. Encourage rest hydration outpatient follow-up as discussed, close return precautions if symptoms get worse. Did discuss with attending, Allyson Nicole DO, who did evaluate patient wimi-de-nbnq. Patient otherwise stable at this time, vital [...] aggravated her pain more. documented in this [facility]Pre[facility] [id number] Hospital Discharge instructions* Discharge Instructions* Flex Jansen PA-C - 06/08/2023 5:58 PM EDT Medication as directed, beware may cause drowsiness. Rest and hydrate, follow-up with your doctors in the next few days, return as needed. * Attachments The following attachments cannot be sent through Care Everywhere. * Back Pain ([place]izen [place]) documented in this encounterPreC[facility] Clinic Orthopedic [id number] Physician Emergency department Note* Flex Jansen PA-C [...] Discussed with attending who did evaluate patient rzjo-ut-uzkh, developed plan for pain control here, will be given fentanyl dose here with Zofran. Being prescription for Percocet. Encourage rest hydration outpatient follow-up as discussed, close return precautions if symptoms get worse. Did discuss with attending, Allyson Nicole DO, who did evaluate patient kbdd-xe-uavp. Patient otherwise stable at this time, vital signs are stable, patient afebrile, and nontoxic in appearance.Attending physician available for immediate consultation throughout entire patient's stay. Decision to Disposition Home or Admit: Discharge FINAL IMPRESSION: 1. Bilateral low back pain [facility] [id number] Emergency department Note* Cheryl Joiner RN - 06/08/2023 5:39 PM EDT Pt arrives via triage for complaints of lower back apin. Pt states she has hx of bulging disc and states that she was in the car for a long time and thinks that it aggravated her pain more. [facility] [id number] History of Present illness Narrative* Elke Adams [...] y.o. female with HCV (in setting of jail opioid use) and depression,with longstanding back and [...] practice, but she would like a more terminologist solution to her pain, and she is [...] significant central canal narrowing. [facility] Hospital Work Phone: 1(553) 218-478003-11-2024 Hospital Discharge instructions Patient Education 06/03/2023 20:00:59 [...] home: Managing pain, stiffness, and swelling Take bfzy-csq-ukgqnyk and prescription medicines only as told by [...] each day. Do not sit, drive, or imaging administrator one place for more than 30 minutes [...] put less stress on your back. Take eprc-uir-ddieuvw and prescription medicines only as told by your health care provider, and apply heat or ice as told. This information is not intended to replace advice given to you by your health care provider. Make sure you discuss any questions you have with your health care provider. Document Revised: 06/02/2021 Document Reviewed: 06/02/2021 [employer] Patient Education 2022 [employer]. 06/03/2023 20:00:59 Chronic Back Pain, Cmbp-tx-Onsw Chronic Back Pain When back pain lasts [...] pull them backward. Do not sit or imaging administrator one place for long periods of time. [...] prescription pain medicine, or muscle relaxants. Take jwmq-ngl-omimjvu and prescription medicines only as told by your doctor. Ask your doctor if the medicine prescribed to you: ?Requires you to avoid driving or using machinery. ?Can cause trouble pooping (constipation). You may need to take these actions to prevent or treat trouble pooping: ?Drink enough fluid to keep your pee (urine) pale yellow. ?Take yytc-opt-zjnresg or prescription medicines. ?Eat foods that are [...] provider. Document Revised: 04/20/2020 Document Reviewed: 04/20/2020 [employer] Patient Education 2022 [employer]. Follow Up Care 06/03/2023 18:58:41 With:Cheyanne Rosas Address: [address], [facility] [place] [phone] Business (1) When:06/06/2023 19:33:42 Comments:Follow-up with your primary care provider in 3 to 5 days. If symptoms worsen, do not improve, or new symptoms arise please report back to emergency department for further evaluation. [facility]03-11-2024 Evaluation + Plan noteExtracted from: Title:ED Note Author:Landon Tidwell PA-C te:06/03/23 Chronic back pain (M54.9: Do rsalgia, unspecified) Other chronic pain (G89.29: Other chronic pain) Orders: ibuprofen, 800 mg = 1 tab(s), Oral, q8hr, # 30 tab(s), Refills(s) 0, Pharmacy: [facility]/pharmacy #[id number], 160, cm, 03/23/23 12:50:00 EST, [...] Appointment Date:06/13/2023 07:40:00 AM Scheduled Provider:Cheyanne Rincon Location:[facility] Appointment Type:FM New Patient - Adult [facility]03-08-2024 Hospital Discharge instructions Patient Education 05/31/2023 [...] Follow these instructions at home: Medicines Take mptg-yxr-gmynhxw and prescription medicines only as told by [...] Watch your condition for any changes. Take yinb-gdq-dubtjjt and prescription medicines only as told by [...] provider. Document Revised: 04/29/2020 Document Reviewed: 07/20/2019 [employer] Patient Education 2022 [employer]. Follow Up Care 05/31/2023 16:33:31 With:Cheyanne Rosas Address: [address], [facility] [place] [phone] [facility] (1) When:06/03/2023 18:09:48 [facility]03-03-2024 Hospital Discharge instructions Patient Education 05/26/2023 [...] Follow these instructions at home: Medicines Take afpa-jsh-spwzxpj and prescription medicines only as told by your health care provider. Ask your health care provider if the medicine prescribed to you: ?Requires you to avoid driving or using heavy machinery. ?Can cause constipation. You may need to take these actions to prevent or treat constipation: ?Drink enough fluid to keep your urine pale yellow. ?Take tqvv-cws-ubqurjx or prescription medicines. ?Eat foods that are [...] provider. Document Revised: 06/18/2022 Document Reviewed: 08/04/2019 [employer]y Patient Education 2022 [employer]. Follow Up Care 05/26/2023 19:25:03 With:Ralph BEYER, VANESSA Aaron, [facility] Address: [address] [place] [address] [place] [phone] When:05/29/2023 [facility]03-03-2024 Evaluation + Plan noteExtracted from: Title:ED Note Author:Susu Lamar PA-C Date :05/26/23 1. Lumbar strain (S39.012A: Strain of muscle, fascia and tendon of lower back, initial encounter) Ordered: tizanidine, 4 mg = 1 tab(s), Oral, q8hr, X 5 day(s), # 15 tab(s), Refills(s) 0, Pharmacy: [facility]/pharmacy #[id number], 160, cm, 05/26/23 19:39:00 EST, [...] Appointment Date:06/13/2023 07:40:00 AM Scheduled Provider:Cheyanne Rincon Location:[facility] Appointment Type:FM New Patient - Adult [facility]03-01-2024 Hospital Discharge instructions Patient Education 05/24/2023 20:43:51 Chronic Back Pain, Iewt-zd-Eijj Chronic Back Pain When back pain lasts [...] pull them backward. Do not sit or imaging administrator one place for long periods of time. [...] prescription pain medicine, or muscle relaxants. Take blhx-jny-rablmye and prescription medicines only as told by your doctor. Ask your doctor if the medicine prescribed to you: ?Requires you to avoid driving or using machinery. ?Can cause trouble pooping (constipation). You may need to take these actions to prevent or treat trouble pooping: ?Drink enough fluid to keep your pee (urine) pale yellow. ?Take mmol-ckp-xwubzfu or prescription medicines. ?Eat foods that are [...] provider. Document Revised: 04/20/2020 Document Reviewed: 04/20/2020 Pressy Patient Education 2022 [employer]atus[employer]. Follow Up Care 05/24/2023 18:42:41 With:Cheyanne Rosas Address: [address] [place], [place] [phone] Business (1) When:Within 3 Day(s) [facility]03-01-2024 Evaluation + Plan noteExtracted from: Title:ED [...] Appointment Date:06/13/2023 07:40:00 AM Scheduled Provider:Cheyanne Rincon Location:[facility] Appointment Type:FM New Patient - Adult [facility]02-26-2024 History of Present illness Narrative* Belkis Hernandez, DO - 05/20/2023 8:15 AM ESTAssociated Order(s): Hand / UE Inj/Asp: R thumb CMC Post-Procedure Diagnose(s): CMC arthritis History present illness: Patient presents today for evaluation status post mechanical fall down 2 stairs that occurred on 11 May 2023. She was walking the dog in the snow. She slipped and fell. Dbgee-tnxc-bwokosof and otherwise healthy. She describes right radial [...] called to verify the correctpatient, procedure, equipment, personal support worker and site/side marked as required. Patient was prepped and draped in the usual sterile fashion. documented in this [facility] Work Phone: 1(559) 214-716802-22-2024 Hospital Discharge instructions Patient Education 05/16/2023 17:04:02 [...] provider if you may use a hand protein specialist to strengthen your muscles. If your thumb feels stiff while you are exercising it, try doing the exercises while soaking your hand in warm water. General instructions Take obst-whg-bgnnkpc and prescription medicines only as told by [...] provider. Document Revised: 01/17/2021 Document Reviewed: 01/17/2021 Pressy Patient Education 2022 [employer]. 05/16/2023 17:04:02 Cast or Splint Care, Adult [...] on part of yourbody. General instructions Take qrpm-yeb-enbweew and prescription medicines only as told by [...] provider. Document Revised: 09/05/2021 Document Reviewed: 09/05/2021 Pressy Patient Education 2022 [employer]atus[employer]. Follow Up Care 05/16/2023 16:17:01 With:Cheyanne Rosas Address: [address] [place], [place] [phone]- Business (1) When:05/19/2023 16:52:35 [facility]02-22-2024 Evaluation + Plan noteExtracted from: Title:ED Note Author:Brandon MILES, Robert Celis te:05/16/23 Right hand fracture (S62.91X A: Unspecified fracture of right wrist and hand, initial encounter for closed fracture) Ordered: acetaminophen-oxycodone, 1 tab(s), Oral, q6hr as needed for pain for 3 day(s), 6 tab(s), Refill(s) 0, [id number], 160, cm, 05/16/23 16:22:00 EST, Height/Length Dosing, 115, kg, 05/16/23 16:22:00 EST, Weight Dosing Future Appointments Appointment Date:06/13/2023 07:40:00 AM Scheduled Provider:Cheyanne Rincon Location:[facility] Appointment Type:FM New Patient - Adult [facility]02-20-2024 Hospital Discharge instructions Patient Education 05/14/2023 [...] Follow these instructions at home: Medicines Take bkro-pbb-ihnmpdi and prescription medicines only as told by [...] for Headache and Migraine Patients (CHAMP): headachemigraine.org [employer] Migraine Foundation: americanmigrainefoundation.org National Headache Foundation: headaches.org [...] provider. Document Revised: 04/27/2020 Document Reviewed: 04/27/2020 [email or web address] Patient Education 2022 [employer] Inc. Follow Up Care 05/14/2023 10:21:04 With:Cheyanne Rosas Address: [address], [facility] [place] [phone] Business (1) When:05/17/2023 11:54:32 [facility]02-18-2024 Evaluation + Plan noteExtracted from: Title:ED Note Author:Nikhil Tubbs DO Date: Wrist fracture (S62.109A: Fr acture of unspecified carpal bone, unspecified wrist, initial encounter for closed fracture) Ordered: oxycodone, 5 mg = 1 cap(s), Oral, q6hr, PRN Pain 8-10, # 9 cap(s), Refills(s) 0, Pharmacy: [facility]/pharmacy #[id number], 160, cm, 05/12/23 10:26:00 EST, Height/Length Dosing, 114.8, kg, 05/12/23 10:26:00 EST, Weight Dosing Orders: acetaminophen-oxycodone, 1 tab(s), Tab, Oral, Once, Stop date 05/12/23 10:41:00 EST, STAT, Start date 05/12/23 10:41:00 EST Future Appointments Appointment Date:06/13/2023 07:40:00 AM Scheduled Provider:Cheyanne Rincon Location:[facility] Appointment Type:FM New Patient - Adult [facility]02-18-2024 Hospital Discharge instructions Patient Education 05/12/2023 [...] is stable enough for you to begin wmnvq-uv-bfqbpw exercises. You may also be prescribed pain [...] cast, splint, or sling on yourwrist. Do aggrq-nn-gvavgk exercises only as told by your health care provider or physical therapist. Medicines Take slwd-gzv-xankjgm and prescription medicines only as told by your health care provider. Ask your health care provider if the medicine prescribed to you: ?Requires you to avoid driving or using machinery. ?Can cause constipation. You may need to take these actions to prevent or treat constipation: ?Drink enough fluid to keep your urine pale yellow. ?Take bqwp-enf-pqlmxyo or prescription medicines. ?Eat foods that are [...] provider. Document Revised: 06/21/2020 Document Reviewed: 06/21/2020 [employer]y Patient Education 2022 [employer]. Follow Up Care 05/12/2023 10:19:15 With:Esvin Romero Address: [address] [place], [place] [phone] Business (1) When:05/15/2023 10:42:26 Comments:Follow-up with Dr. Romero in office.Take oxycodone as prescribed. You may take the 5 mg oxycodone tablet on top of your baseline Percocet for breakthrough pain from your fracture. [facility]02-17-2024 Hospital Discharge instructions Patient Education 05/11/2023 17:37:45 Wrist Fracture Treated With Immobilization, Abwb-fs-Vzet Wrist Fracture Treated With Immobilization A wrist [...] has healed enough, you may begin doing oulvb-qq-dxodsv exercises. Follow these instructions at home: If [...] splint, or sling on your wrist. Do axbwu-hk-zlslog exercises only as told by your doctor. Medicines Take wicp-bit-uxrhzuo and prescription medicines only as told by [...] provider. Document Revised: 06/21/2020 Document Reviewed: 06/21/2020 [employer]y Patient Education 2022 [employer]5. 05/11/2023 17:37:45 Cast or Splint Care, Adult, Eidx-oy-Chxd Cast or Splint Care, Adult Casts and [...] part of your body. General instructions Take pjwn-tyr-jvhdvjx and prescription medicines only as told by [...] provider. Document Revised: 09/05/2021 Document Reviewed: 09/05/2021 [employer]y Patient Education 2022 [employer]5. Follow Up Care 05/11/2023 16:21:24 With:Esvin Romero Address: [address] [place] [address] Business (1) When:05/14/2023 17:17:09 Comments:Call Dr for diagnosis based follow up With:Cheyanne Rosas Address: [address] [address] Business (1) When:05/14/2023 17:17:07 [facility]02-14-2024 Hospital Discharge instructions Patient Education 05/08/2023 13:05:53 Abdominal Pain, Adult, Uuhu-bb-Epog Abdominal Pain, Adult Many things can cause belly (abdominal) pain. Most times, belly pain is not dangerous. Many cases of belly pain can be watched and treated at home. Sometimes, though, belly pain is serious. Your doctor will try to find the cause of your belly pain. Follow these instructions at home: Medicines Take jcuk-hzw-ljgrnnc and prescription medicines only as told by [...] your belly pain for any changes. Take xchb-pny-yelybye and prescription medicines only as told by [...] provider. Document Revised: 07/20/2019 Document Reviewed: 07/20/2019 [employer]y Patient Education 2022 [employer]5. Follow Up Care 05/08/2023 11:25:27 With:Katharina iKdd Address: [facility] [address], [address] [place] [phone] Business (1) When:05/11/2023 12:34:39 With:Cheyanne Rosas Address: [address], [address] [facility] [address] [place] [address]- Business (1) When:05/11/2023 12:34:31 Comments:Follow-up with your primary care provider in 3 to 5 days. If symptoms worsen, do not improve, or new symptoms arise please report back to emergency department for further evaluation. [facility]02-04-2024 Emergency department Note* Laurita Baires RN - 04/28/2023 12:39 AM EST Patient discharged to home, alert and oriented, skin warm, dry and pink. Denies needs and or questions. Will follow-up as directed, patient encouraged to return for worsening or new symptoms or otherconcerns. [id number] Emergency department Note* Laurita Baires RN - [...] Loc Pain Edu? Excl. in GC? Vitals: 02/03/24 2240 BP: (!) 170/96 Pulse: 83 Resp: [...] injury or complaints. A&Ox4. documented in this encounterKindred Hospital DaytonAhizko89-30-0933 Hospital Discharge instructions* Discharge Instructions* Sharan Hwang MD - 04/28/2023 12:28 AM EST Dear Jerad Tracy, Thank you for allowing me and the rest of the Emergency Department staff at the [facility] to care for you today. [...] can call your insurance company or call [facility] [facility] at [phone] for assistance in finding a doctor. If [...] assistance with paying for medications, please visit [email or web address] where you can find the best prices for prescription and edwx-elz-emukebx medications. Wishing you a speedy recovery, Sharan Hwang MD documented in this encounterKindred Hospital DaytonCwsenw04-11-0138 Emergency department Note* Laurita Baires RN - 04/28/2023 12:24 AM EST Pt ambulated to restroom with steady gait. Pt states her pain has improved and is now 5/10 and tolerable. Physician aware. [facility] DaytonZtjwgl48-84-6751 Emergency department Note* Laurita Baires RN - 04/27/2023 11:26 PM EST To bedside for rounding. Pt medicated for 10/10 pain per MAY. Pt resting quietly. No other needs expressed at this time. Call light in reach. [facility] DaytonNogbup14-08-4476 Emergency department Note* Laurita Baires RN - 04/27/2023 11:00 PM EST To bedside to introduce self to pt and address needs. Resident at bedside. Pt resting quietly. No needs expressed at this time. Call light within reach. [facility] DaytonHlohel54-86-5806 Physician Emergency department Note* Sharan Hwang MD [...] Electronically signed by: Sharan Hwang MD, 04/28/2023 [facility] DaytonDoqrpv78-61-7583 Emergency department Note* Rebecca Gómez RN - 04/27/2023 10:39 PM EST Patient arrives to triage stating she has a herniated L4-L5 disc, got on an inversion table tonightand is now having back pain. Denies any other injury or complaints. A&Ox4. [facility] DaytonDarqvc37-06-5980 Evaluation + Plan noteExtracted from: Title:ED Note Author:Annette Watkins, Balbina Celis te:04/26/23 1. Chronic back pain (M54.9: Dorsalgia, unspecified) Other chronic pain (G89.29: Other chronic pain) Orders: ibuprofen, 800 mg = 1 tab(s), Oral, TID, # 30 tab(s), Refills(s) 0, Pharmacy: [facility]/pharmacy #[id number], 160, cm, 04/26/23 9:34:00 EST, Height/Length Dosing, 114.3, kg, 04/26/23 9:34:00 EST, Weight Dosing ketorolac, 60 mg = 2 mL, Injection, IntraMuscular, Once, Stop date 04/26/23 9:37:00 EST, STAT, Start date 04/26/23 9:37:00 EST, 04/26/23 9:37:00 EST morphine, 4 mg = 1 mL, Injection, IntraMuscular, Once, Stop date 04/26/23 9:38:00 EST, STAT, Start date 04/26/23 9:38:00 EST, 04/26/23 9:38:00 EST [facility]02-02-2024 Hospital Discharge instructions Patient Education 04/26/2023 [...] pull them backward. Do not sit or imaging administrator one place for long periods of time. [...] prescription pain medicine, or muscle relaxants. Take zsmd-fit-emhxjtt and prescription medicines onlyas told by your health care provider. Ask your health care provider if the medicine prescribed to you: ?Requires you to avoid driving or using machinery. ?Can cause constipation. You may need to take these actions to prevent or treat constipation: ?Drink enough fluid to keep your urine pale yellow. ?Take ehfj-fms-nflovva or prescription medicines. ?Eat foods that are [...] provider. Document Revised: 04/20/2020 Document Reviewed: 04/20/2020 [employer]y Patient Education 2022 [employer]5. Follow Up Care 04/26/2023 09:28:24 With:ANTONIO SOCORRO Address: [address] [place] [phone] Business (1) When:04/29/2023 10:05:29 Comments:Make sure to follow-up with your neurosurgeon as scheduled and your primary doctor. Return to the emergency room if your pain gets worse, bowel or bladder incontinence, numbness/tingling in the saddle/groin area, weakness in your leg or any new symptoms. [facility]01-29-2024 Hospital Discharge instructions Patient Education 04/22/2023 [...] home: Managing pain, stiffness, and swelling Take znzy-foq-aqddkbg and prescription medicines only as told by [...] each day. Do not sit, drive, or imaging administrator one place for more than 30 minutes [...] put less stress on your back. Take ytbk-nrh-fqmrxke and prescription medicines only as told by your health care provider, and apply heat or ice as told. This information is not intended to replace advice given to you by your health care provider. Make sure you discuss any questions you have with your health care provider. Document Revised: 06/02/2021 Document Reviewed: 06/02/2021 Pressy Patient Education 2022 Stratus5. 04/22/2023 20:37:29 Chronic Back Pain, Gtlw-bh-Ydau Chronic Back Pain When back pain lasts [...] pull them backward. Do not sit or imaging administrator one place for long periods of time. [...] prescription pain medicine, or muscle relaxants. Take dqvz-nbg-geyqnfr and prescription medicines only as told by your doctor. Ask your doctor if the medicine prescribed to you: ?Requires you to avoid driving or using machinery. ?Can cause trouble pooping (constipation). You may need to take these actions to prevent or treat trouble pooping: ?Drink enough fluid to keep your pee (urine) pale yellow. ?Take lcoj-zmm-bymugxk or prescription medicines. ?Eat foods that are [...] provider. Document Revised: 04/20/2020 Document Reviewed: 04/20/2020 [employer]y Patient Education 2022 [employer]atus5. Follow Up Care 04/22/2023 20:10:10 With:ANTONIO HUSAIN Address: [address] [place] [phone] Business (1) When:04/25/2023 20:23:39 Comments:Follow-up with your primary care provider in 3 to 5 days. If symptoms worsen, do not improve, or new symptoms arise please report back to emergency department for further evaluation. [facility]01-29-2024 Evaluation + Plan noteExtracted from: Title:ED [...] date 04/22/23 20:19:00 EST, 04/22/23 20:19:00 EST [facility]01-18-2024 Hospital Discharge instructions Patient Education 04/11/2023 [...] pull them backward. Do not sit or imaging administrator one place for long periods of time. [...] prescription pain medicine, or muscle relaxants. Take cjor-nna-nlmwmah and prescription medicines onlyas told by your health care provider. Ask your health care provider if the medicine prescribed to you: ?Requires you to avoid driving or using machinery. ?Can cause constipation. You may need to take these actions to prevent or treat constipation: ?Drink enough fluid to keep your urine pale yellow. ?Take icwg-pkn-gmypqte or prescription medicines. ?Eat foods that are [...] provider. Document Revised: 04/20/2020 Document Reviewed: 04/20/2020 Pressy Patient Education 2022 Stratus5. Follow Up Care 04/11/2023 18:29:24 With:ANTONIO HUSAIN Address: [address] [place] [phone] Business (1) When:04/14/2023 18:58:52 [facility]01-18-2024 Evaluation + Plan noteExtracted from: Title:ED [...] date 04/11/23 18:57:00 EST, 04/11/23 18:57:00 EST [facility]01-18-2024 Hospital Discharge instructions Patient Education 04/11/2023 01:37:11 Chronic Back Pain, Tchg-vo-Zmnj Chronic Back Pain When back pain lasts [...] pull them backward. Do not sit or imaging administrator one place for long periods of time. [...] prescription pain medicine, or muscle relaxants. Take tzgz-odg-clgwqvn and prescription medicines only as told by your doctor. Ask your doctor if the medicine prescribed to you: ?Requires you to avoid driving or using machinery. ?Can cause trouble pooping (constipation). You may need to take these actions to prevent or treat trouble pooping: ?Drink enough fluid to keep your pee (urine) pale yellow. ?Take tgqu-hcp-qndftzv or prescription medicines. ?Eat foods that are [...] provider. Document Revised: 04/20/2020 Document Reviewed: 04/20/2020 [employer]y Patient Education 2022 [employer] Inc. 04/11/2023 01:37:11 Acute Back Pain, Adult Acute [...] home: Managing pain, stiffness, and swelling Take xzvc-bwk-cahfsbt and prescription medicines only as told by [...] each day. Do not sit, drive, or imaging administrator one place for more than 30 minutes [...] put less stress on your back. Take xbpa-iro-uamhdsw and prescription medicines only as told by your health care provider, and apply heat or ice as told. This information is not intended to replace advice given to you by your health care provider. Make sure you discuss any questions you have with your health care provider. Document Revised: 06/02/2021 Document Reviewed: 06/02/2021 Pressy Patient Education 2022 Stratus5. Follow Up Care 04/10/2023 22:03:35 With:ANTONIO HUSAIN Address: [address] [place] [phone] Business (1) When:Within 3 Day(s) [facility]01-12-2024 Hospital Discharge instructions Patient Education 04/05/2023 [...] Follow these instructions at home: Medicines Take ukqx-ogh-dkynmbj and prescription medicines only as told by your health care provider. If you were prescribed an antiviral medicine, take it as told by your health care provider. Do not stop using the antiviral even if you start to feel better. Do not take any new medicines, including wwwp-cni-tmkcsoy medicines or supplements, unless your health care [...] water are not available, use alcohol-based hand auto claim representative. Cover any cuts or open sores on [...] contagious). Do not take any medicines, including wpob-nhr-pyllypv medicines or supplements, unless your health care provider approves. This information is not intended to replace advice given to you by your health care provider. Make sure you discuss any questions you have with your health care provider. Document Revised: 01/26/2021 Document Reviewed: 01/26/2021 [employer]y Patient Education 2022 [employer]atus5. 04/05/2023 15:51:34 Abdominal Pain, Adult Abdominal Pain, [...] Follow these instructions at home: Medicines Take moao-lwz-lqohedc and prescription medicines only as told by [...] Watch your condition for any changes. Take rqin-dev-oisdjrj and prescription medicines only as told by [...] provider. Document Revised: 04/29/2020 Document Reviewed: 07/20/2019 Elsevier Patient Education 2022 Stratus5. Follow Up Care 04/05/2023 12:31:48 With:ANTONIO HUSAIN Address: [address] [place] [phone]- [phone] Business (1) When:04/08/2023 15:38:51 [facility]01-12-2024 Evaluation + Plan noteExtracted from: Title:ED [...] date 04/05/23 13:07:00 EST, 04/05/23 13:07:00 EST [facility]01-10-2024 Hospital Discharge instructions Patient Education 04/02/2023 22:19:34 Chronic Back Pain, Opfb-ww-Ewpb Chronic Back Pain When back pain lasts [...] pull them backward. Do not sit or imaging administrator one place for long periods of time. [...] prescription pain medicine, or muscle relaxants. Take wbqb-ecw-ihdkzns and prescription medicines only as told by your doctor. Ask your doctor if the medicine prescribed to you: ?Requires you to avoid driving or using machinery. ?Can cause trouble pooping (constipation). You may need to take these actions to prevent or treat trouble pooping: ?Drink enough fluid to keep your pee (urine) pale yellow. ?Take urks-gbj-wemjwdo or prescription medicines. ?Eat foods that are [...] provider. Document Revised: 04/20/2020 Document Reviewed: 04/20/2020 [employer] Patient Education 2022 Stratus5. 04/02/2023 22:19:34 Back Exercises, Fgna-pp-Cjmx Back Exercises These exercises help to make [...] provider. Document Revised: 05/24/2021 Document Reviewed: 05/24/2021 [employer] Patient Education 2022 [email or web address]. Follow Up Care 04/02/2023 21:42:13 With:ANTONIO HUSAIN Address: [address] [place] [address] [phone]- [phone] Business (1) When:04/05/2023 21:59:55 Comments:You can take the naproxen every 12 hours as needed for for pain you can use the Robaxin every 8 hours as needed for pain. Please follow-up with your primary care doctor next 2 to 3 days. Please return to the ED for any new or worsening symptoms. [facility]01-09-2024 Evaluation + Plan noteExtracted from: Title:ED [...] day(s), # 9 tab(s), Refills(s) 0, Pharmacy: [facility]/pharmacy #[id number], 160, cm, 04/02/23 21:48:00 EST, Height/Length Dosing, 110, kg, 04/02/23 21:48:00 EST, Weight Dosing naproxen, 500 mg = 1 tab(s), Oral, BID, PRN for pain, # 20 tab(s), Refills(s) 0, Pharmacy: [facility]/pharmacy #[id number], 160, cm, 04/02/23 21:48:00 EST, Height/Length Dosing, 110, kg, 04/02/23 21:48:00 EST, Weight Dosing orphenadrine, 60 mg = 2 mL, Injection, IntraMuscular, Once, Stop date 04/02/23 21:58:00 EST, STAT, Start date 04/02/23 21:58:00 EST, 04/02/23 21:58:00 EST oxycodone, 5 mg = 1 tab(s), Tab, Oral, Once, Stop date 04/02/23 21:59:00 EST, STAT, Start date 04/02/23 21:59:00 EST, 04/02/23 21:59:00 EST [facility]01-08-2024 Evaluation + Plan note* Assessment & [...] will see this patient in 6 weeks [facility] Work Phone: 1(193) 871-303401-08-2024 Miscellaneous Notes* Assessment & Plan Note - [...] patient in 6 weeks documented in this [facility] Work Phone: 1([phone] 198-201501-08-2024 History of Present illness Narrative* Chidi Joseph [...] HBVDNAQNPCRL , HBVDNAPCR No results found for: XEBQ760 , UUUZ777 === 02/13/23 === US ABDOMEN LIMITED LIVER - Impression - No focal intrahepatic lesions noted. The patient is status post cholecystectomy. MACRO: None Signed by: Harshad Tran 02/14/2023 7:30 AM Dictation workstation: [id number] Chronic hepatitis C without hepatic coma (CMS/HCC) [...] patient in 6 weeks [facility] Work Phone: 1(980) 791-652201-08-2024 Instructions* Patient Instructions* Elke Haas RN - 04/01/2023 8:20 AM EST [phone] (See below for department name when scheduling) [...] [facility] is located at the following locations: [facility], [facility], [facility]. YOU SHOULD NOT EAT OR DRINK 3 HOURS BEFORE THE EXAM. [x] FOLLOW UP (Department Gastro): due date : 6 Week If you have any questions or need assistance, please don't hesitate to contact us. Dr. Joseph: Office [phone] Hepatology Nurse Coordinator: Elke SEXTON [phone] documented in this [facility] Work Phone: 1(903) 701-324101-02-2024 Hospital Discharge instructions Patient Education 03/26/2023 12:45:13 [...] Follow these instructions at home: Medicines Take mkim-tkp-dwalskj and prescription medicines only as told by your health care provider. Ask your health care provider if the medicine prescribed to you: ?Requires you to avoid driving or using heavy machinery. ?Can cause constipation. You may need to take these actions to prevent or treat constipation: ?Drink enough fluid to keep your urine pale yellow. ?Take ucjj-cjg-pxyyaaf or prescription medicines. ?Eat foods that are [...] provider. Document Revised: 07/03/2019 Document Reviewed: 04/23/2019 [employer] Patient Education 2022 Stratus5. Follow Up Care 03/26/2023 10:48:18 With:ANTONIO HUSAIN Address: [address] [place] [phone] Business (1) When:Within 3 Day(s) [facility]01-02-2024 Evaluation + Plan noteExtracted from: Title:ED [...] day(s), # 15 tab(s), Refills(s) 0, Pharmacy: [facility]/pharmacy #[id number], 160, cm, 03/26/23 10:58:00 EST, [...] 03/26/23 11:06:00 EST, Infuse over 61, minute(s) [facility]12-30[facility]23 Hospital Discharge instructions Patient Education 03/23/2023 [...] home: Managing pain, stiffness, and swelling Take vhbe-jar-yvxronp and prescription medicines only as told by [...] each day. Do not sit, drive, or imaging administrator one place for more than 30 minutes [...] put less stress on your back. Take slir-trg-mxrdxem and prescription medicines only as told by your health care provider, and apply heat or ice as told. This information is not intended to replace advice given to you by your health care provider. Make sure you discuss any questions you have with your health care provider. Document Revised: 06/02/2021 Document Reviewed: 06/02/2021 [employer] Patient Education 2022 Stratus5. 03/23/2023 13:57:23 Chronic Back Pain, Tfqa-ji-Sjyq Chronic Back Pain When back pain lasts [...] pull them backward. Do not sit or imaging administrator one place for long periods of time. [...] prescription pain medicine, or muscle relaxants. Take wunx-qxg-ycuujur and prescription medicines only as told by your doctor. Ask your doctor if the medicine prescribed to you: ?Requires you to avoid driving or using machinery. ?Can cause trouble pooping (constipation). You may need to take these actions to prevent or treat trouble pooping: ?Drink enough fluid to keep your pee (urine) pale yellow. ?Take vrjw-bte-qfxxuqe or prescription medicines. ?Eat foods that are [...] provider. Document Revised: 04/20/2020 Document Reviewed: 04/20/2020 [employer] Patient Education 2022 Stratus5. 03/23/2023 13:57:23 Back Exercises, Jojg-bk-Yhgd Back Exercises These exercises help to make [...] provider. Document Revised: 05/24/2021 Document Reviewed: 05/24/2021 [email or web address] Patient Education 2022 [email or web address]. Follow Up Care 03/23/2023 12:41:35 [phone] Address:Unknown When:03/26/2023 13:05:55 With:ANTONIO HUSAIN Address: [address] [place] [address] [phone]- [phone] Business (1) When:03/26/2023 13:05:48 Comments:Follow-up with your primary care provider in 3 to 5 days. If symptoms worsen, do not improve, or new symptoms arise please report back to emergency department for further evaluation. [facility]12-30-2023 Evaluation + Plan noteExtracted from: Title:ED Note Author:Landon Tidwell PA-C te:03/23/23 Chronic back pain (M54.9: Do rsalgia, unspecified) Other chronic pain (G89.29: Other chronic pain) Orders: ibuprofen, 800 mg = 1 tab(s), Oral, q8hr, # 30 tab(s), Refills(s) 0, Pharmacy: [facility]/pharmacy #[id number], 160, cm, 03/23/23 12:50:00 EST, [...] date 03/23/23 13:03:00 EST, 03/23/23 13:03:00 EST [facility]12-27-2023 Hospital Discharge instructions Patient Education 03/20/2023 [...] pull them backward. Do not sit or imaging administrator one place for long periods of time. [...] prescription pain medicine, or muscle relaxants. Take fwou-kwm-gcwqnbe and prescription medicines onlyas told by your health care provider. Ask your health care provider if the medicine prescribed to you: ?Requires you to avoid driving or using machinery. ?Can cause constipation. You may need to take these actions to prevent or treat constipation: ?Drink enough fluid to keep your urine pale yellow. ?Take zjlb-axr-kqzlvyf or prescription medicines. ?Eat foods that are [...] provider. Document Revised: 04/20/2020 Document Reviewed: 04/20/2020 [employer] Patient Education 2022 Stratus5. 03/20/2023 13:38:51 Acute Pain, Adult Acute Pain, [...] Follow these instructions at home: Medicines Take ulmf-fpg-citrbdk and prescription medicines only as told by [...] pain is severe. ?Do not take other awjv-smy-rgzgoah pain medicines in addition to prescription pain [...] grains, and fresh fruits and vegetables. ?Take shbf-jxl-pgdrfek or prescription medicines. ?Limit foods that are [...] or you are no longer ill. Take vorq-cvn-gvmjnnp and prescription medicines only as told by [...] provider. Document Revised: 07/26/2022 Document Reviewed: 07/27/2019 [employer] Patient Education 2022 Stratus5. 03/20/2023 13:38:51 Radicular Pain Radicular Pain Radicular [...] knees and rising up. Do strength and olwun-sa-xrsyfb exercises only as told by your health care provider or physical therapist. General instructions Take feob-vtn-muauvzk and prescription medicines only as told by [...] provider. Document Revised: 09/14/2021 Document Reviewed: 09/14/2021 [employer] Patient Education 2022 Stratus5. Follow Up Care 03/20/2023 12:42:50 With:ANTONIO HUSAIN Address: [address] [place] [address] [phone]- [phone] Business (1) When:03/23/2023 13:25:02 Comments:Follow-up with your primary care provider in 3 to 5 days. If symptoms worsen, do not improve, or new symptoms arise please report back to emergency department for further evaluation. [facility]12-27-2023 Evaluation + Plan noteExtracted from: Title:ED [...] date 03/20/23 13:21:00 EST, 03/20/23 13:21:00 EST [facility]12-18-2023 Evaluation + Plan noteExtracted from: Title:ED [...] Panel Lipase Level Rapid COVID Antigen ([facility] [place]) [facility]12-18-2023 Hospital Discharge instructions Follow Up Care 03/11/2023 08:57:16 With:ANTONIO HUSAIN Address: [address] [place] [address] [phone]- [phone] Business (1) When:Within 3 Day(s) [facility]11-21-2023 Hospital Discharge instructions Patient Education 02/12/2023 [...] pull them backward. Do not sit or imaging administrator one place for long periods of time. [...] prescription pain medicine, or muscle relaxants. Take gnyx-uin-dmyafur and prescription medicines onlyas told by your health care provider. Ask your health care provider if the medicine prescribed to you: ?Requires you to avoid driving or using machinery. ?Can cause constipation. You may need to take these actions to prevent or treat constipation: ?Drink enough fluid to keep your urine pale yellow. ?Take tash-gau-uikpspn or prescription medicines. ?Eat foods that are [...] provider. Document Revised: 04/20/2020 Document Reviewed: 04/20/2020 [employer] Patient Education 2022 Stratus5. Follow Up Care 02/12/2023 19:28:18 With:DALTON JAMES Address: [address] [place] [address] Business (1) When:02/15/2023 20:41:14 [facility]11-21-2023 Evaluation + Plan noteExtracted from: Title:ED [...] date 02/12/23 20:39:00 EST, 02/12/23 20:39:00 EST [facility]11-16-2023 Hospital Discharge instructions Patient Education 02/07/2023 20:30:36 Chronic Back Pain, Hmdm-ii-Iwrb Chronic Back Pain When back pain lasts [...] pull them backward. Do not sit or imaging administrator one place for long periods of time. [...] prescription pain medicine, or muscle relaxants. Take tgfv-xpi-ggdzayg and prescription medicines only as told by your doctor. Ask your doctor if the medicine prescribed to you: ?Requires you to avoid driving or using machinery. ?Can cause trouble pooping (constipation). You may need to take these actions to prevent or treat trouble pooping: ?Drink enough fluid to keep your pee (urine) pale yellow. ?Take rbpg-nvm-hakcncx or prescription medicines. ?Eat foods that are [...] provider. Document Revised: 04/20/2020 Document Reviewed: 04/20/2020 [employer] Patient Education 2022 Stratus5. 02/07/2023 20:30:36 Back Exercises, Bmgp-ar-Okzy Back Exercises These exercises help to make [...] provider. Document Revised: 05/24/2021 Document Reviewed: 05/24/2021 [employer] Patient Education 2022 Stratus5. Follow Up Care 02/07/2023 19:11:26 With:Declan COLVIN Address: [address] [place] [phone]- [facility] (1) When:02/10/2023 19:59:42 Comments:Take the steroids once daily until you have completed the course. You can use the anti-inflammatory, muscle relaxers as prescribed as needed for pain. Please follow-up with your primary care doctor in addition to spine doctor for further evaluation and management. With:XXXX NONE Address: [place] When:Within 3 Day(s) [facility]11-07-2023 Hospital Discharge instructions Patient Education 01/29/2023 [...] Follow these instructions at home: Medicines Take kfbe-ggn-nxubeab and prescription medicines only as told by your health care provider. Ask your health care provider if the medicine prescribed to you: ?Requires you to avoid driving or using machinery. ?Can cause constipation. You may need to take these actions to prevent or treat constipation: ?Drink enough fluid to keep your urine pale yellow. ?Take qill-gue-gebkshg or prescription medicines. ?Eat foods that are [...] department or: Call your local emergency services (161 in the [place] Call a suicide crisis helpline, such as the National Suicide Prevention Lifeline at or 847 in the [place] This is open 24 hours a day in the [place] Text the Crisis Text Line at 746822 (in the [place] Summary Chronic pain is [...] provider. Document Revised: 10/04/2021 Document Reviewed: 11/26/2019 [employer] Patient Education 2022 Stratus5. Follow Up Care 01/29/2023 11:30:42 With:Luís Mar Address: Pain Management [address] [place], [place] [phone] [facility] (1) When:02/01/2023 12:09:50 [facility]10-31-2023 Hospital Discharge instructions Patient Education 01/22/2023 19:37:08 Chronic Back Pain, Jkuw-uq-Qgiu Chronic Back Pain When back pain lasts [...] pull them backward. Do not sit or imaging administrator one place for long periods of time. [...] prescription pain medicine, or muscle relaxants. Take ducy-zsy-hjalofq and prescription medicines only as told by your doctor. Ask your doctor if the medicine prescribed to you: ?Requires you to avoid driving or using machinery. ?Can cause trouble pooping (constipation). You may need to take these actions to prevent or treat trouble pooping: ?Drink enough fluid to keep your pee (urine) pale yellow. ?Take flyi-alq-sfoafjk or prescription medicines. ?Eat foods that are [...] provider. Document Revised: 04/20/2020 Document Reviewed: 04/20/2020 [employer] Patient Education 2022 Stratus5. Follow Up Care 01/22/2023 18:45:34 With:Peña Salazar Address: [address] [place] [phone] Business (1) When:01/25/2023 19:09:36 Comments:Follow-up with your primary care provider in 3 to 5 days. If symptoms worsen, do not improve, or new symptoms arise please report back to emergency department for further evaluation. [facility]10-31-2023 Evaluation + Plan noteExtracted from: Title:ED [...] date 01/22/23 19:08:00 EDT, 01/22/23 19:08:00 EDT [facility]10-31-2023 History of Present illness Narrative* Jori Harman MD PhD - 01/22/2023 1:30 PM EDT It was a pleasure to see Ms. Tracy at the [facility] at [facility]. Patient is a 47 year old [...] All questions were answered. documented in this [facility] Work Phone: 1(667) 971-953610-24-2023 History of Present illness Narrative* Antonio Husain PA-C - 01/15/2023 1:10 PM EDT Subjective Patient ID: Jerad Tracy is a 47 y.o. female who presents for [facility] (Patient transferring Care form [place], [place], last seen by PCP 3 months ago./Colonoscopy done 04/2022 and bone density done 10/2022 at [facility], mammogram scheduled for 01-17-23 and Pap done over 5 years.) and Weight Loss (Patient would like to discuss weight loss options.). HPI Patient presents to [facility]. Patient has medical history of [...] some time and was previously seen in [place] by neurosurgery. Patient reports inability to get [...] Controlled substance agreement signed [facility] Work Phone: [phone] 786-403110-23-2023 Hospital Discharge instructions Patient Education 01/14/2023 15:50:08 [...] pull them backward. Do not sit or imaging administrator one place for long periods of time. [...] prescription pain medicine, or muscle relaxants. Take fhdt-kqd-racnvnj and prescription medicines onlyas told by your health care provider. Ask your health care provider if the medicine prescribed to you: ?Requires you to avoid driving or using machinery. ?Can cause constipation. You may need to take these actions to prevent or treat constipation: ?Drink enough fluid to keep your urine pale yellow. ?Take emrg-cyg-segqour or prescription medicines. ?Eat foods that are [...] provider. Document Revised: 04/20/2020 Document Reviewed: 04/20/2020 [employer] Patient Education 2022 Stratus5. 01/14/2023 15:50:08 Back Exercises, Zeor-jf-Mmtv Back Exercises These exercises help to make [...] provider. Document Revised: 05/24/2021 Document Reviewed: 05/24/2021 [employer] Patient Education 2022 Stratus5. Follow Up Care 01/14/2023 14:32:06 With:Domenic Sher Address: [address] [place], [place] [phone] [facility] (1) When:01/17/2023 15:23:38 [facility]10-23-2023 Evaluation + Plan noteExtracted from: Title:ED Note Author:Eden Salomon ate:01/14/23 Chronic back pain (M54.9: Do rsalgia, unspecified) [facility]10-21-2023 Hospital Discharge instructions Patient Education 01/12/2023 [...] home: Managing pain, stiffness, and swelling Take xcau-svv-erboffr and prescription medicines only as told by [...] each day. Do not sit, drive, or imaging administrator one place for more than 30 minutes [...] put less stress on your back. Take prke-ncd-mfgkhcj and prescription medicines only as told by your health care provider, and apply heat or ice as told. This information is not intended to replace advice given to you by your health care provider. Make sure you discuss any questions you have with your health care provider. Document Revised: 06/02/2021 Document Reviewed: 06/02/2021 [employer] Patient Education 2022 Stratus5. 01/12/2023 21:42:49 Contusion Contusion A contusion is [...] sitting or lying down. General instructions Take hubu-gwt-ddcnovl and prescription medicines only as told by [...] compression, and elevation. You may be given njde-lmh-tcghtpj medicines for pain. Contact a health care [...] provider. Document Revised: 01/23/2022 Document Reviewed: 01/04/2022 [employer] Patient Education 2022 Stratus5. Follow Up Care 01/12/2023 20:23:40 With:Alondra PHOENIX Address: [address] [place] [address] [address] [phone] Business (1) When:01/15/2023 21:37:43 Comments:Return to the emergency room if your pain gets worse or any new symptoms. [facility]10-21-2023 Evaluation + Plan noteExtracted from: Title:ED Note Author:Balbina Bryant M.D. te:01/12/23 1. Lumbar contusion (S30.0XX A: Contusion of lower back and pelvis, initial encounter) Orders: lidocaine topical, 1 patch(es), Topical, Daily, 7 EA, Refill(s) 0, apply 12 hours on and 12 hours off daily, [facility]/pharmacy #[id number], 160, cm, 01/12/23 20:29:00 EDT, Height/Length Dosing, 114.3, kg, 01/12/23 20:29:00 EDT, Weight Dosing morphine, 4 mg = 2 mL, Injection, IntraMuscular, Once, Stop date 01/12/23 20:36:00 EDT, STAT, Start date 01/12/23 20:36:00 EDT, 01/12/23 20:36:00 EDT XR Spine Lumbosacral 2 or 3 Views [facility]10-19-2023 Evaluation + Plan noteExtracted from: Title:ED [...] day(s), # 21 tab(s), Refills(s) 0, Pharmacy: [facility]/pharmacy #[id number], 160, cm, 01/10/23 10:36:00 EDT, Height/Length Dosing, 115.7, kg, 01/10/23 10:36:00 EDT, Weight Dosing morphine, 4 mg = 2 mL, Injection, IntraMuscular, Once, Stop date 01/10/23 11:37:00 EDT, STAT, Start date 01/10/23 11:37:00 EDT, 01/10/23 11:37:00 EDT [facility]10-19-2023 Evaluation note* Encounter Date Diagnosis Assessment [...] would like to go back to the [place] area and does not like coming all the way out to [place] for the pain management. Dec, Lumbosacral spondylosis (ICD-10 - M47.817) Dec, Chronic pain (ICD-10 - G89.29) [email or web address] Other 10-19-2023 Hospital Discharge instructions Patient Education [...] home: Managing pain, stiffness, and swelling Take ghzp-yjp-riytbvs and prescription medicines only as told by [...] each day. Do not sit, drive, or imaging administrator one place for more than 30 minutes [...] put less stress on your back. Take xrpn-ugf-ppwlwqd and prescription medicines only as told by your health care provider, and apply heat or ice as told. This information is not intended to replace advice given to you by your health care provider. Make sure you discuss any questions you have with your health care provider. Document Revised: 06/02/2021 Document Reviewed: 06/02/2021 [employer] Patient Education 2022 Stratus5. Follow Up Care 01/10/2023 10:31:11 With:Joe Meza Address: [address] [place] [phone] Business (1) When:01/13/2023 11:35:28 Comments:Call the office [...] breath, or any new or worsening symptoms. [facility]10-15-2023 Hospital Discharge instructions Additional Instructions Take medication as prescribed Follow-up with the doctor as scheduled this week Return to the ER for worsening pain fever weakness in her legs loss of bladder bowel control or any other [facility] Work Phone: 1(240) 931-764910-15-2023 Hospital Discharge instructions Additional Instructions Keep follow up appointment with [facility] neurosurgery this week. She is uncertain of the name of the provider she is seeing. She was referred to the [facility] last week by Dr. Meza. [facility] Work Phone: [phone] Evaluation + Plan noteExtracted from: Title:ED Note Author:Balbina Bryant M.D. te:01/05/23 1. Contusion of lower back ( S30.0XXA: Contusion of lower back and pelvis, initial encounter) Ordered: acetaminophen-oxycodone, 1 tab(s), Oral, q6hr as needed for pain, 10 tab(s), Refill(s) 0, [facility]/pharmacy #[id number], 160, cm, 01/04/23 21:16:00 EDT, Height/Length [...] 2 mL, Injection, IntraMuscular, Once, Stop date 10/13/23 21:38:00 EDT, STAT, Start date 01/04/23 21:38:00 EDT, 01/04/23 21:38:00 EDT morphine, 4 mg = 2 mL, Injection, IntraMuscular, Once, Stop date 01/04/23 22:59:00 EDT, STAT, Start date 01/04/23 22:59:00 EDT, 01/04/23 22:59:00 EDT naproxen, 500 mg = 1 tab(s), Oral, BID, # 20 tab(s), Refills(s) 0, Pharmacy: [facility]/pharmacy #[id number], 160, cm, 01/04/23 21:16:00 EDT, Height/Length Dosing, 114.7, kg, 01/04/23 21:16:00 EDT, Weight Dosing orphenadrine, 60 mg = 2 mL, Injection, IntraMuscular, Once, Stop date 01/04/23 21:39:00 EDT, STAT, Start date 01/04/23 21:39:00 EDT, 01/04/23 21:39:[address] Spine Lumbar w/o Contrast XR Hip 2-3 Views Left + Pelvis [facility]10-14-2023 Hospital Discharge instructions Patient Education 01/05/2023 [...] Follow these instructions at home: Medicines Take reyz-wdk-mbzecgw and prescription medicines only as told by your health care provider. Ask your health care provider if the medicine prescribed to you: ?Requires you to avoid driving or using heavy machinery. ?Can cause constipation. You may need to take these actions to prevent or treat constipation: ?Drink enough fluid to keep your urine pale yellow. ?Take ogos-lgr-cgoufmf or prescription medicines. ?Eat foods that are [...] provider. Document Revised: 06/29/2020 Document Reviewed: 06/29/2020 [employer] Patient Education 2022 [email or web address]. 01/05/2023 00:38:20 Contusion Contusion A contusion is [...] sitting or lying down. General instructions Take lznh-odm-xyyhwaq and prescription medicines only as told by [...] compression, and elevation. You may be given fpyc-ise-bvepfis medicines for pain. Contact a health care [...] provider. Document Revised: 01/23/2022 Document Reviewed: 01/04/2022 [employer] Patient Education 2022 [email or web address]. Follow Up Care 01/04/2023 21:05:36 With:Joe Meza Address: [address] [place], [place] [id number] [facility] (1) When:01/08/2023 Comments:Return to the emergency room if your pain gets worse, bowel or bladder incontinence, numbness/tingling in the saddle/groin area or any new symptoms. [facility]10-11-2023 Hospital Discharge instructions Patient Education 01/02/2023 16:56:30 Chronic Back Pain, Rcbn-he-Fwho Chronic Back Pain When back pain lasts [...] pull them backward. Do not sit or imaging administrator one place for long periods of time. [...] prescription pain medicine, or muscle relaxants. Take epzh-ytx-lmgjvle and prescription medicines only as told by your doctor. Ask your doctor if the medicine prescribed to you: ?Requires you to avoid driving or using machinery. ?Can cause trouble pooping (constipation). You may need to take these actions to prevent or treat trouble pooping: ?Drink enough fluid to keep your pee (urine) pale yellow. ?Take nszu-sfk-bqkawuo or prescription medicines. ?Eat foods that are [...] provider. Document Revised: 04/20/2020 Document Reviewed: 04/20/2020 [employer] Patient Education 2022 [email or web address]. Follow Up Care 01/02/2023 15:59:31 With:Joe Meza Address: [address] [place], [place] [phone]- Business (1) When:01/05/2023 16:20:40 [facility]10-11-2023 Evaluation + Plan noteExtracted from: Title:ED Note Author:Landon Tidwell PA-C te:01/02/23 Chronic back pain (M54.9: Do rsalgia, [...] Nausea/Vomiting, # 12 tab(s), Refills(s) 0, Pharmacy: [facility]/pharmacy #[id number], 160, cm, 01/02/23 16:09:00 EDT, Height/Length Dosing, 114.2, kg, 01/02/23 16:09:00 EDT, Weight Dosing [facility]10-05-2023 Evaluation note* Encounter Date Diagnosis Assessment [...] Lumbar degenerative disc disease (ICD-10 - M51.36) [facility] Other 10-04-2023 Hospital Discharge instructions Patient Education [...] pull them backward. Do not sit or imaging administrator one place for long periods of time. [...] prescription pain medicine, or muscle relaxants. Take xtgo-myx-bdzisrw and prescription medicines onlyas told by your health care provider. Ask your health care provider if the medicine prescribed to you: ?Requires you to avoid driving or using machinery. ?Can cause constipation. You may need to take these actions to prevent or treat constipation: ?Drink enough fluid to keep your urine pale yellow. ?Take ukim-jhe-qdxjvqq or prescription medicines. ?Eat foods that are [...] provider. Document Revised: 04/20/2020 Document Reviewed: 04/20/2020 [employer] Patient Education 2022 [email or web address]. Follow Up Care 12/26/2022 16:21:06 With:Bridger Del Rosario Address: [address] [place], [place] [address] [address] Business (1) When:12/29/2022 16:53:27 [facility]10-04-2023 Evaluation + Plan noteExtracted from: Title:ED [...] date 12/26/22 16:52:00 EDT, 12/26/22 16:52:00 EDT [facility]10-04-2023 Evaluation note* Encounter Date Diagnosis Assessment [...] pain (ICD-10 - G89.29) No follow up. [email or web address] Other 10-01-2023 Hospital Discharge instructions Patient Education [...] home: Managing pain, stiffness, and swelling Take ilxk-dpg-qtqvcnr and prescription medicines only as told by [...] each day. Do not sit, drive, or imaging administrator one place for more than 30 minutes [...] put less stress on your back. Take hkkp-cjn-acrpvwp and prescription medicines only as told by your health care provider, and apply heat or ice as told. This information is not intended to replace advice given to you by your health care provider. Make sure you discuss any questions you have with your health care provider. Document Revised: 06/02/2021 Document Reviewed: 06/02/2021 [employer] Patient Education 2022 [email or web address]. Follow Up Care 12/23/2022 16:55:38 With:Keep upcoming appointment with your spinal surgeon Address:Unknown When:12/26/2022 18:30:08 Comments:Seek immediate medical attention if you develop: increasing pain, numbness, tingling, weakness, loss of motion in your arms or legs, loss of control of your urine or stool, fever, abdominal pain, chest pain, shortness of breath, or any new or worsening symptoms. [facility]10-01-2023 Evaluation + Plan noteExtracted from: Title:ED [...] day(s), # 15 tab(s), Refills(s) 0, Pharmacy: [facility]/pharmacy #[id number], 160, cm, 12/23/22 17:18:00 EDT, [...] pain, # 20 tab(s), Refills(s) 0, Pharmacy: [facility]/pharmacy #[id number], 160, cm, 12/23/22 17:18:00 EDT, Height/Length Dosing, 113.8, kg, 12/23/22 17:18:00 EDT, Weight Dosing XR Spine Lumbosacral 2 or 3 Views [facility]09-26-2023 Hospital Discharge instructions Patient Education 12/18/2022 [...] home: Managing pain, stiffness, and swelling Take ovcr-clv-raxubrd and prescription medicines only as told by [...] each day. Do not sit, drive, or imaging administrator one place for more than 30 minutes [...] put less stress on your back. Take tngi-ccb-wubsjia and prescription medicines only as told by your health care provider, and apply heat or ice as told. This information is not intended to replace advice given to you by your health care provider. Make sure you discuss any questions you have with your health care provider. Document Revised: 06/02/2021 Document Reviewed: 06/02/2021 [employer] Patient Education 2022 [email or web address]. Follow Up Care 12/18/2022 12:20:19 With:Joe Meza Address: [address] [place] [id number] [facility] (1) When:12/21/2022 12:52:24 [facility]09-21-2023 Hospital Discharge instructions Patient Education 12/13/2022 [...] pull them backward. Do not sit or imaging administrator one place for long periods of time. [...] prescription pain medicine, or muscle relaxants. Take sshg-ykv-oxeqkcx and prescription medicines onlyas told by your health care provider. Ask your health care provider if the medicine prescribed to you: ?Requires you to avoid driving or using machinery. ?Can cause constipation. You may need to take these actions to prevent or treat constipation: ?Drink enough fluid to keep your urine pale yellow. ?Take ermt-zfn-xfsakfj or prescription medicines. ?Eat foods that are [...] provider. Document Revised: 04/20/2020 Document Reviewed: 04/20/2020 [employer] Patient Education 2022 [email or web address]. Follow Up Care 12/13/2022 17:19:50 With:Joe Derrick Address: [address] [place] [phone] Business (1) When:12/16/2022 18:50:16 [facility]09-21-2023 Hospital Discharge instructions Patient Education 12/12/2022 [...] hard liquor (44 mL). General instructions Take aznu-cmb-lqlflkx and prescription medicines only as told by [...] provider. Document Revised: 11/20/2021 Document Reviewed: 11/20/2021 [employer] Patient Education 2022 [email or web address]. 12/12/2022 23:52:47 Chronic Back Pain Chronic Back [...] pull them backward. Do not sit or imaging administrator one place for long periods of time. [...] prescription pain medicine, or muscle relaxants. Take zpwo-are-upzeuhz and prescription medicines onlyas told by your health care provider. Ask your health care provider if the medicine prescribed to you: ?Requires you to avoid driving or using machinery. ?Can cause constipation. You may need to take these actions to prevent or treat constipation: ?Drink enough fluid to keep your urine pale yellow. ?Take ifgl-guv-yidsacp or prescription medicines. ?Eat foods that are [...] Document Reviewed: 04/20/2020 Else[employer] Patient Education 2022 [email or web address]. Follow Up Care 12/12/2022 20:51:35 With:XXXX NONE Address: [place] When:12/15/2022 Comments:[facility] [...] you develop any new or worsening symptoms. [facility]09-20-2023 Evaluation + Plan noteExtracted from: Title:ED Note Author:Sam Dowd PA-C e:12/12/22 Low back pain (M54.50: Low b [...] Lumbar w/o Contrast XR Chest Single View [facility]09-20-2023 Procedure [facility]09-15-2023 Hospital Discharge instructions Patient Education 12/07/2022 18:55:05 Chronic Back Pain, Yetn-fw-Vvbt Chronic Back Pain When back pain lasts [...] pull them backward. Do not sit or imaging administrator one place for long periods of time. [...] prescription pain medicine, or muscle relaxants. Take zrmu-zhz-waxgfbh and prescription medicines only as told by your doctor. Ask your doctor if the medicine prescribed to you: ?Requires you to avoid driving or using machinery. ?Can cause trouble pooping (constipation). You may need to take these actions to prevent or treat trouble pooping: ?Drink enough fluid to keep your pee (urine) pale yellow. ?Take pqwm-nms-bnleqst or prescription medicines. ?Eat foods that are [...] provider. Document Revised: 04/20/2020 Document Reviewed: 04/20/2020 [employer] Patient Education 2022 [email or web address]. 12/07/2022 18:55:05 Acute Back Pain, Adult Acute [...] home: Managing pain, stiffness, and swelling Take ecam-qny-ukzgrfc and prescription medicines only as told by [...] each day. Do not sit, drive, or imaging administrator one place for more than 30 minutes [...] put less stress on your back. Take dyqs-clx-mcbwpuw and prescription medicines only as told by your health care provider, and apply heat or ice as told. This information is not intended to replace advice given to you by your health care provider. Make sure you discuss any questions you have with your health care provider. Document Revised: 06/02/2021 Document Reviewed: 06/02/2021 [employer] Patient Education 2022 [email or web address]. Follow Up Care 12/07/2022 16:26:15 With:Peña Salazar Address: [address] [place] [phone] Business (1) When:12/10/2022 18:30:41 Comments:Follow-up with your primary care provider in 3 to 5 days. If symptoms worsen, do not improve, or new symptoms arise please report back to emergency department for further evaluation. [facility]09-12-2023 Emergency department Note* Angela Dan RN - 12/04/2022 8:25 PM EDT Patient discharged to home, alert and oriented, skin warm, dry and pink. Denies needs and or questions. Will follow-up as directed, patient encouraged to return for worsening or new symptoms or otherconcerns. [id number] Emergency department Note* Angela Dna RN - 12/04/2022 8:25 PM EDT Patient [...] leg history of lumbar disc disease HPI: Jeard Tracy is a 47 year old female who presents with a complaint that she does have a known history of lumbar disc disease. She drove over the weekend from [facility] where she lives and exacerbated her [...] Management: Outpatient management with her neurosurgeon in [place] FINAL IMPRESSION: 1 --acute on chronic lower [...] been flaring up worse. documented in this encounter[facility] [id number] Emergency department Note* Angela Dan RN - 12/04/2022 8:08 PM EDT Patient medicated per MAY. Respirations even and unlabored. Skin warm and dry. [facility] [id number] Physician Emergency department Note* Allyson Nicole DO - 12/04/2022 7:58 PM EDT Chief Complaint: Lower lumbar back pain that radiates to the right leg history of lumbar disc disease HPI: Jerad Tracy is a 47 year old female who presents with a complaint that she does have a known history of lumbar disc disease. She drove over the weekend from [facility] where she lives and exacerbated her [...] Management: Outpatient management with her neurosurgeon in [place] FINAL IMPRESSION: 1 --acute on chronic lower lumbar back pain with history of lumbar disc disease 2 -- 3 -- I have reviewed the past medical, family, and social history sections including the medications andallergies listed in the above medical record. Electronically signed by: Allyson Nicole DO, 12/04/2022 7:58 PM [id number] Emergency department Note* Angela Dan RN - 12/04/2022 7:54 PM EDT Provider at bedside. [facility] [id number] Emergency department Note* Radha Spivey RN - 12/04/2022 7:08 PM EDT Patient arrives ambulatory to triage with c/o herniated disc in her back, states this is a chronic issue but the pain has been flaring up worse. [id number]* [...] (ICD-10 - G89.29) Follow up after procedure. [email or web address] Other 08-15-2023 Evaluation note* Encounter Date Diagnosis [...] SI (sacroiliac) joint inflammation (ICD-10 - M46.1) [email or web address] Other 07-05-2023 Evaluation note* Encounter Date Diagnosis [...] procedure. Sep, Other UDS performe d through [employer] today, will await confirmatory results. [email or web address] Other 06-28-2023 [facility] [...] pull them backward. Do not sit or imaging administrator one place for long periods of time. [...] prescription pain medicine, or muscle relaxants. Take luma-cwu-ihlkisi and prescription medicines onlyas told by your health care provider. Ask your health care provider if the medicine prescribed to you: ?Requires you to avoid driving or using machinery. ?Can cause constipation. You may need to take these actions to prevent or treat constipation: ?Drink enough fluid to keep your urine pale yellow. ?Take yxpn-eau-penprpy or prescription medicines. ?Eat foods that are [...] provider. Document Revised: 04/20/2020 Document Reviewed: 04/20/2020 [employer] Patient Education 2022 [email or web address]. Follow Up Care 09/04/2022 19:08:34 With:Pain Clinic: [facility] [phone] Address:Unknown When:09/07/2022 20:33:32 With:XXXX NONE Address: [place] When:Within 3 Day(s) [facility]06-13-2023 Evaluation + Plan noteExtracted from: Title:ED Note Author:Noemí MILES, Sam Garrett e:09/04/22 Chronic back pain (M54.9: Do rsalgia, unspecified) Other chronic pain (G89.29: Other chronic pain) Orders: ketorolac, 60 mg = 2 mL, Injection, IntraMuscular, Once, Stop date 09/04/22 20:29:00 EDT, STAT, Start date 09/04/22 20:29:00 EDT, 09/04/22 20:29:00 EDT [facility]06-13-2023 Evaluation note* Encounter Date Diagnosis Assessment [...] she is waiting to be scheduled at [facility] for this. Prior to examining the [...] negative findings were considered in medical decision-making. [email or web address] Other 05-30-2023 Evaluation note* Encounter Date Diagnosis [...] 4-6 pounds of pressure on the spine. [email or web address] Other 01-06-2022 Evaluation note* Encounter Date Diagnosis [...] Above note written by Ina Regalado LPN, Foundry Engineer. Edited and approved by Dr. Avery Goodman [...] negative findings were considered in medical decision-making. [email or web address] Other 11-24-2021 Evaluation note* Encounter Date Diagnosis [...] and denies any concerns at this time. [email or web address] Other Evaluation + Plan note No data available for this section [facility] noteExtracted from: Title:ED Note [...] date 02/07/23 19:57:00 EST, 02/07/23 19:57:00 EST [facility] Future Appointments Appointment Date:06/13/2023 07:40:00 AM Scheduled Provider:Cehyanne Rincon Location:[facility] Appointment Type:FM New Patient - Adult [facility] Future Appointments Appointment Date:08/14/2023 03:15:00 PM Scheduled Provider:Domenic Sher DO Location:[facility] Appointment Type:Pain Management - Follow Up (FT) Future Scheduled Tests Laboratory* TSH With T4fr Reflex 07/17/23 * Urinalysis with Micro 07/17/23 * Lipid Panel 07/17/23 * Drug Screen Urine 07/17/23 Radiology* MA Mamm Screen w/CAD if perf and 3D Kenan 07/17/23 [facility] Evaluation + Plan note Future Appointments Appointment Date:11/13/2023 08:00:00 AM Scheduled Provider:Domenic Sher DO Location:[facility] Appointment Type:Pain Management - Follow Up (FT) Future Scheduled Tests Laboratory* TSH With T4fr Reflex 07/17/23 * Urinalysis with Micro 07/17/23 * Lipid Panel 07/17/23 * Drug Screen Urine 07/17/23 Radiology* MA Mamm Screen w/CAD if perf and 3D Kenan 07/17/23 [facility] evaluation noteNo [facility] Other Evaluation noteNo assessment information available [facility] Work Phone: Evaluation note* Diagnosis Onset Date Resolution Status Rectal bleeding acute [facility] Work Phone: Evaluation note* Diagnosis Lumbar disc disease- Primary Other and unspecified disc disorder of lumbar region [facility] Diagnosis Encounter for screening mammogram for breast cancer- Primary Recurrent major depressive disorder, in full remission (CMS/HCC) Herniation of intervertebral disc between L4 and L5 Lumbar radiculopathy Thoracic or lumbosacral neuritis or radiculitis, unspecified Chronic hepatitis C without hepatic coma (CMS/HCC) Chronic, continuous use of opioids Controlled substance agreement signed documented in this encounter [facility] Work Phone: Evaluation note* Diagnosis Chronic low back pain, unspecified back pain laterality, unspecified whether sciatica present- Primary documented in this encounter [facility] Work Phone: Evaluation note* Diagnosis Chronic hepatitis C without hepatic coma (CMS/HCC) documented in this encounter [facility] Work Phone: Evaluation note* Diagnosis Chronic hepatitis C without hepatic coma (CMS/HCC) documented in this encounter [facility] Work Phone: Evaluation note* Diagnosis Continuous opioid dependence (CMS/HCC)- Primary Opioid type dependence, continuous abuse Chronic hepatitis C without hepatic coma (CMS/HCC) documented in this encounter [facility] Work Phone: Evaluation note* Diagnosis Chronic right-sided low back pain with right-sided sciatica- Primary [facility] Diagnosis Onset Date Resolution Status Arthritis of carpometacarpal (CMC) joint of right thum b acute Sprain of right thumb acute [facility] Work Phone: Evaluation note* Diagnosis CMC arthritis- Primary Right wrist pain Pain in joint, forearm documented in this encounter [facility] Work Phone: Evaluation note* Diagnosis Chronic back pain greater than 3 months duration- Primary Neuropathic pain documented in this encounter [facility] Work Phone: Evaluation note* Diagnosis Acute bilateral low back pain, unspecified whether sciatica present- Primary [facility]* Diagnosis Chronic back pain, unspecified back location, unspecified back pain laterality- Primary documented in this encounter [facility] Work Phone: Evaluation note* Diagnosis Pain disorder associated with psychological and physical factors documented in this encounter [facility] Work Phone: Evaluation note* Diagnosis Low back pain without sciatica, unspecified back pain laterality, unspecified chronicity- Primary [facility]* Diagnosis Chronic back pain greater than 3 months duration- Primary Chronic back pain greater than 3 months duration Neuropathic pain Continuous opioid dependence (Multi) Opioid type dependence, continuous abuse Neuropathic pain documented in this encounter [facility] Work Phone: Evaluation note* Diagnosis Chronic back pain greater than 3 months duration- Primary Neuropathic pain documented in this encounter [facility] Work Phone: Evaluation note* Diagnosis Strain of lumbar region, initial encounter- Primary documented in this encounter [facility]* Diagnosis Infection of superficial incisional surgical site after procedure, initial encounter- Primary documented [facility]* Diagnosis Dehiscence of wound of skin, initial encounter- Primary Low back pain, unspecified back pain laterality, unspecified chronicity, unspecified whether sciatica present [facility]* Diagnosis 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 Hepatic fibrosis, advanced fibrosis documented in this encounter [facility] Work Phone: [phone] note* Diagnosis 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 Hepatic fibrosis, advanced fibrosis Neuropathic pain- Primary Dehiscence of wound of skin, subsequent encounter Status post insertion of spinal cord stimulator documented in this encounter [facility] Work Phone: [phone] note* Diagnosis 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 Hepatic fibrosis, advanced fibrosis Acute exacerbation of chronic low back pain- Primary documented in this encounter [facility] Work Phone: [phone] note* Diagnosis 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 Hepatic fibrosis, advanced fibrosis Lumbar radiculopathy- Primary Thoracic or lumbosacral neuritis or radiculitis, unspecified Left leg weakness Muscle weakness (generalized) Chronic midline low back pain, unspecified whether sciatica present Spinal stenosis of lumbar region, unspecified whether neurogenic claudication present Acute exacerbation of chronic low back pain documented in this encounter [facility] Work Phone: [phone] note* Diagnosis 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 Hepatic fibrosis, advanced fibrosis Chronic low back pain without sciatica, unspecified back pain laterality- Primary Left leg weakness Muscle weakness (generalized) Chronic back pain greater than 3 months duration documented in this encounter [facility] Work Phone: [phone] note* Diagnosis 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 Hepatic fibrosis, advanced fibrosis Chronic low back pain with sciatica, sciatica laterality unspecified, unspecified back pain laterality- Primary Left leg weakness Muscle weakness (generalized) Decreased sensation of leg Lumbar disc herniation Displacement of lumbar intervertebral disc without myelopathy documented in this encounter [facility] Work Phone: [phone] note* Diagnosis 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 Hepatic fibrosis, advanced fibrosis Acute midline low back pain without sciatica- Primary documented in this encounter [facility] Work Phone: [phone] note* Diagnosis 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 Hepatic fibrosis, advanced fibrosis Lumbar disc herniation with radiculopathy- Primary Displacement of lumbar intervertebral disc without myelopathy documented in this encounter [facility] Work Phone: Evaluation note* Diagnosis 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
--- NOTE | 2024-02-23 10:33 | ED.BACK1 ---
HPI HPI - Back Pain/Injury General Chief Complaint: Back Pain/Injury Stated Complaint: BACK PAIN POST SURGERY Time Seen by Provider: 02/23/24 10:15 Source: patient and family Mode of arrival: walk-in Limitations: no limitations History of Present Illness HPI Narrative: 48-year-old female presents for back pain. She was seen here yesterday and states she hurt her back when she picked up a grandchild. She did not fall. She had recent surgery. She is complaining of pain just to the left of midline in the lower back. No numbness or weakness. She initially told me that she has no pain medication at home and that the last time she had a prescription for Percocet was 2 or 3 weeks ago. When confronted with the information that she had a prescription for 28 pills of Percocet 5 days ago she admitted she does have Percocet at home. Related Data Home Medications ?Medication ?Instructions ?Recorded ?Confirmed fluoxetine 60 mg tablet 60 mg PO DAILY 07/16/23 12/21/23 cyclobenzaprine 10 mg tablet 10 mg PO Q8H PRN muscle spasm 09/13/23 12/21/23 ibuprofen 800 mg tablet mg 09/13/23 Previous Rx's ?Medication ?Instructions ?Recorded methocarbamol 750 mg tablet 750 mg PO Q6H PRN pain #30 tabs 07/16/23 methylprednisolone 4 mg tablets in 4 mg PO DAILY #21 ea 09/04/23 a dose pack (Medrol (Ian)) oxycodone 5 mg capsule 5 mg PO Q6H PRN pain #10 caps 09/04/23 oxycodone 5 mg tablet 5 mg PO Q8H PRN pain 3 days #10 09/13/23 tabs oxycodone 5 mg tablet 5 mg PO Q6H PRN pain #6 tabs 09/21/23 oxycodone-acetaminophen 5 mg-325 1 tab PO Q6H PRN pain 3 days #10 11/03/23 mg tablet (Percocet) tabs dicyclomine 10 mg capsule 10 mg PO QID PRN abdominal pain 12/21/23 #12 caps ibuprofen 800 mg tablet 800 mg PO TID PRN pain #30 tabs 02/22/24 Allergies Allergy/AdvReac Type Severity Reaction Status Date / Time nabumetone Allergy Mild Hives Verified 12/21/23 16:54 hydrocodone Allergy Hives Verified 12/21/23 16:54 ketorolac (From Toradol) Allergy Hives Verified 12/21/23 16:54 Penicillins Allergy Hives Verified 12/21/23 16:54 Opioid HPI Opioid Management Most Recent Opioid Data: Last Pain Scale 8 02/22/24 16:46 02/22/24 Review of Systems ROS Narrative A ten point review of systems is negative except as noted above. PFSH PFSH Surgical History (Updated 09/04/23 @ 15:39 by Michelle Marie) History of spinal surgery ?Z98.890 - Other specified postprocedural states (ICD-10) Social History Smoking status: Current every day smoker Little interest or pleasure in doing things: not at all Feeling down, depressed, or hopeless: not at all Exam Narrative Exam Narrative: Nurses note and vital signs reviewed and patient is not hypoxic. General: The patient appears in no apparent distress. Skin: Warm, dry, no pallor noted. There is no rash noted. Head: Normocephalic, atraumatic Eye: Normal conjunctiva, no drainage Ears, Nose, Mouth, and Throat: oral mucosa is moist. Nares patent. Cardiovascular: Regular Rate and Rhythm Respiratory: Patient is in no distress, no accessory muscle use, lungs are clear to auscultation, no wheezing, rales or rhonchi Back: Surgical wound is healing well. No dehiscence or erythema. She has no focal area of tenderness to palpation. GI: Soft and nontender Musculoskeletal: The patient has no evidence of calf tenderness, no pitting edema, symmetrical pulses noted bilaterally Neurological: A&O, normal speech; motor strength intact in her lower extremities Psychiatric: Cooperative Constitutional Vital Signs, click to edit/add: Last Vital Signs Temp 98 F 02/23/24 10:15 Pulse 106 H 02/23/24 10:15 Resp 18 02/23/24 10:15 BP 162/78 H 02/23/24 10:15 Pulse Ox 99 02/23/24 10:15 O2 Del Method Room Air 02/23/24 10:15 Course Vital Signs Vital signs: Vital Signs Temperature 98 F 02/23/24 10:15 Pulse Rate 106 H 02/23/24 10:15 Respiratory Rate 18 02/23/24 10:15 Blood Pressure 162/78 H 02/23/24 10:15 Pulse Oximetry 99 02/23/24 10:15 Oxygen Delivery Method Room Air 02/23/24 10:15 Temperature 98 F 02/23/24 10:15 Pulse Rate 106 H 02/23/24 10:15 Respiratory Rate 18 02/23/24 10:15 Blood Pressure 162/78 H 02/23/24 10:15 Pulse Oximetry 99 02/23/24 10:15 Oxygen Delivery Method Room Air 02/23/24 10:15 MDM - Back Pain/Injury MDM Narrative Medical decision making narrative: She has had a prescription for 170 Percocet in the last 60 days. She initially told me she did not have any at home and that that her last prescription was 2 or 3 weeks ago but she had a prescription for 28 pills 5 days ago. She was recommended follow-up with her back specialist. I do not feel that x-rays or CAT scan are indicated and if further radiographic evaluation is necessary this would need to be coordinated by her back surgeon. She has no neurologic deficits and there is no indication for any further workup in this emergency department. Findings were discussed thoroughly. Differential Diagnosis Differential diagnosis: Likely strain of lumbar region Discharge Plan Discharge Chief Complaint: Back Pain/Injury Clinical Impression: Acute exacerbation of chronic low back pain Patient Disposition: Home, Self-Care Time of Disposition Decision: 10:32 Condition: Good Mode of Transportation: Private Vehicle Prescriptions / Home Meds: No Action cyclobenzaprine 10 mg tablet 10 mg PO Q8H PRN (Reason: muscle spasm) ibuprofen 800 mg tablet oxycodone 5 mg tablet 5 mg PO Q8H PRN (Reason: pain) 3 Days Qty: 10 0RF oxycodone 5 mg tablet 5 mg PO Q6H PRN (Reason: pain) Qty: 6 0RF ibuprofen 800 mg tablet 800 mg PO TID PRN (Reason: pain) Qty: 30 0RF fluoxetine 60 mg tablet 60 mg PO DAILY methocarbamol 750 mg tablet 750 mg PO Q6H PRN (Reason: pain) Qty: 30 0RF oxycodone 5 mg capsule 5 mg PO Q6H PRN (Reason: pain) Qty: 10 0RF methylprednisolone [Medrol (Ian)] 4 mg tablets,dose pack 4 mg PO DAILY Qty: 21 0RF oxycodone-acetaminophen [Percocet] 5-325 mg tablet 1 tab PO Q6H PRN (Reason: pain) 3 Days Qty: 10 0RF dicyclomine 10 mg capsule 10 mg PO QID PRN (Reason: abdominal pain) Qty: 12 0RF Print Language: Wallisian Instructions: Chronic Pain (ED), Acute Low Back Pain (ED) Additional Instructions: Call your back specialist in the morning. Referrals: Physician,Non-Staff, MD [Primary Care Provider] - 1 week Discharge Date/Time: 02/23/24 10:39
== END 2024-02-23 10:39 | disposition home or self-care (01) ==
PROVIDERS: Emergency Provider Emergency Medicine
DX: M54.50 Low back pain, unspecified (principal); G89.29 Other chronic pain; F17.200 Nicotine dependence, unspecified, uncomplicated; Z98.890 Other specified postprocedural states
CPT/HCPCS: 99281

== ENCOUNTER 2024-08-12 15:58 | Emergency (ER) | payer OTHER, SELFPAY ==
[2024-08-12 16:03] VITALS: BP 155/122; PULSE 120; TEMP 37.1; O2SAT 97; BMI 44.3
--- NOTE | 2024-08-12 16:07 | ED.GENADUL1 ---
HPI HPI - General Adult General Chief complaint: Back Pain/Injury Stated complaint: BACK PAIN Time Seen by Provider: 08/12/24 16:05 History of Present Illness HPI narrative: The patient is a 49-year-old female who presents to the emergency department today for evaluation of concerns for acute on chronic back pain. She endorses she has a history of bulging disks and pinched nerves to her back. She mentions last year she had lumbar spinal surgery however has continued to have pain to her lower back with radiation of pain down her left leg. She states this is normal and per her baseline. No saddle anesthesia or concerns with bowel/bladder function. No new injuries. No history of fevers or malignancy. She mentions over the past few days she has had increased pain to her back that she attributes to the rainy weather. She mentions she takes oxycodone at home and has had minimal improvement. She states she is scheduled to have a morphine pain pump placed in the coming weeks for management of her chronic pain. Related Data Home Medications ?Medication ?Instructions ?Recorded ?Confirmed cyclobenzaprine 10 mg tablet 10 mg PO Q8H PRN muscle spasm 09/13/23 08/12/24 ibuprofen 800 mg tablet 800 mg 09/13/23 bumetanide 2 mg tablet 2 mg PO BID 08/12/24 08/12/24 duloxetine 60 mg capsule,delayed 60 mg PO DAILY 08/12/24 08/12/24 release (Cymbalta) Previous Rx's ?Medication ?Instructions ?Recorded oxycodone 5 mg capsule 5 mg PO Q6H PRN pain #10 caps 09/04/23 methylprednisolone 4 mg tablets in 4 mg PO DAILY #21 ea 08/12/24 a dose pack (Medrol (Ian)) Allergies Allergy/AdvReac Type Severity Reaction Status Date / Time nabumetone Allergy Mild Hives Verified 08/12/24 16:11 hydrocodone Allergy Hives Verified 08/12/24 16:11 Penicillins Allergy Hives Verified 08/12/24 16:12 Opioid HPI Opioid Management Most Recent Opioid Data: Last Pain Scale 8 02/22/24, 16:46 Review of Systems ROS Status of ROS 10 or more systems reviewed and unremarkable except as noted in history and below PFSH PFSH Surgical History (Updated 09/04/23 @ 15:39 by Michelle Marie) History of spinal surgery ?Z98.890 - Other specified postprocedural states (ICD-10) Social History Smoking status: Current every day smoker Little interest or pleasure in doing things: not at all Feeling down, depressed, or hopeless: not at all Exam Narrative Exam Narrative: Constituational: Awake/ alert, no apparent distress, well hydrated HENMT: normocephalic, external ears normal, moist oral mucous membranes and oropharynx normal Eyes: EOMI and conjunctivae normal Neck: ROM intact Chest: inspection of chest normal Respiratory: Normal respiratory effort, clear to auscultation bilaterally Cardio: regular rate and regular rhythm GI: soft to palpation and non-tender Back: + Mild/moderate discomfort with palpation over all paravertebral lumbar region with sciatic notch discomfort. No vertebral tenderness. Normal inspection of back MSK: ROM intact, +NVI Skin: no rashes or petechiae Neuro: no focal deficits, normal gait, normal/equal strength to B/L LE Psych: mental status grossly normal Medical Decision Making MDM Narrative Medical decision making narrative: The patient is a well-appearing 49-year-old female who presented to the emergency department today for evaluation concerns for acute on chronic back pain with chronic lumbar radiculopathy. Initial examination vital signs overall stable. No concerning neurovascular motor findings on exam. Starkly patient endorsed pain followed by pain management and will be having a morphine pain pump placed in the coming weeks for management of her chronic pain. Per patient request she did have IM injections of Toradol and morphine which is what she states she usually receives for acute episodes of her chronic pain. Will additionally discharge home with Medrol Dosepak. She endorses she has been applying heat and advised this may be contributing to more pain and encouraged her to switch to cool compresses/ice therapy. Advised on close follow-up with her pain specialist and/orthopedic provider for reevaluation. Discussed signs and symptoms of any worsening condition and when to consider reevaluation. Patient verbalized an understanding of this and is agreeable with the plan to be discharged home. Medical Records Medical records reviewed: Yes I reviewed the patient's medical records Discharge Plan Discharge Chief Complaint: Back Pain/Injury Clinical Impression: Lumbar radiculopathy, Chronic back pain Patient Disposition: Home, Self-Care Prescriptions / Home Meds: New methylprednisolone [Medrol (Ian)] 4 mg tablets,dose pack 4 mg PO DAILY Qty: 21 0RF No Action cyclobenzaprine 10 mg tablet 10 mg PO Q8H PRN (Reason: muscle spasm) ibuprofen 800 mg tablet oxycodone 5 mg tablet 5 mg PO Q8H PRN (Reason: pain) 3 Days Qty: 10 0RF oxycodone 5 mg tablet 5 mg PO Q6H PRN (Reason: pain) Qty: 6 0RF ibuprofen 800 mg tablet 800 mg PO TID PRN (Reason: pain) Qty: 30 0RF fluoxetine 60 mg tablet 60 mg PO DAILY methocarbamol 750 mg tablet 750 mg PO Q6H PRN (Reason: pain) Qty: 30 0RF oxycodone 5 mg capsule 5 mg PO Q6H PRN (Reason: pain) Qty: 10 0RF methylprednisolone [Medrol (Ian)] 4 mg tablets,dose pack 4 mg PO DAILY Qty: 21 0RF oxycodone-acetaminophen [Percocet] 5-325 mg tablet 1 tab PO Q6H PRN (Reason: pain) 3 Days Qty: 10 0RF dicyclomine 10 mg capsule 10 mg PO QID PRN (Reason: abdominal pain) Qty: 12 0RF Print Language: Kiswahili Instructions: Lumbar Radiculopathy (ED), Chronic Back Pain (DC) Additional Instructions: Rusk Dosepak as prescribed. Recommend ice and avoiding heat to any sore areas. Continue your analgesic regimen of oxycodone as discussed. 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 Referrals: Physician,Non-Staff, MD [Primary Care Provider] - 1 week
[2024-08-12] MEDS: MORPHINE SULFATE 2 MG/ML SYRINGE IM (16:23)
[2024-08-12] MEDS: KETOROLAC TROMETHAMINE 30 MG/ML VIAL IM (16:23)
[2024-08-12 16:35] VITALS: PULSE 82; O2SAT 98
== END 2024-08-12 16:37 | disposition home or self-care (01) ==
PROVIDERS: Emergency Provider Emergency Medicine
DX: M54.16 Radiculopathy, lumbar region (principal); Z79.899 Other long term (current) drug therapy; F17.200 Nicotine dependence, unspecified, uncomplicated; G89.29 Other chronic pain; M54.9 Dorsalgia, unspecified
CPT/HCPCS: 96372; 99284; J1885; J2270

== ENCOUNTER 2024-09-29 20:22 | Emergency (ER) | payer OTHER, SELFPAY ==
--- OUTSIDE RECORDS SUMMARY | 2016-06-29 05:50 | XMS_ITS | Continuity of Care Document ---
Author Organization [facility] Address [address] [facility] [place] [address] Phone Care Team Providers Care Registered Land Surveyor Name Role Phone Sonyamaldonado Tomas SLATER Unavailable Unavailable Allergies, Adverse Reactions, Alerts Substance Reaction Status Criticality No Known Allergies Active No Inform ation Medications Medication Instructions Dosage Effective Dates (start - stop) Status Comments Vivitrol 380 mg intramuscular suspension,extended release inject 4 milliliter by intramuscular route every 4 weeks 380 MG - Active Procedures Procedure Date OFFICE/OUTPATIENT VISIT, EST Vititrol Injection Vititrol Injection OFFICE/OUTPATIENT VISIT, EST Vititrol Injection OFFICE/OUTPATIENT VISIT, EST Vititrol Injection OFFICE/OUTPATIENT VISIT, EST Vititrol Injection Vititrol Injection OFFICE/OUTPATIENT VISIT, EST ROUTINE VENIPUNCTURE Vititrol Injection OFFICE/OUTPATIENT VISIT, EST Vititrol Injection OFFICE/OUTPATIENT VISIT, EST Vititrol Injection OFFICE/OUTPATIENT VISIT, EST Vititrol Injection OFFICE/OUTPATIENT VISIT, EST Vititrol Injection Vititrol Injection OFFICE/OUTPATIENT VISIT, EST Vititrol Injection OFFICE/OUTPATIENT VISIT, EST Vititrol Injection ROUTINE VENIPUNCTURE Advance Directives Directive Yes / No Effective Date File Name No Information Encounters Encounter Description Practice Location Reason(s) For Visit Diagnoses Date Provider Providers Copied on Encounter [facility], [address] [place], [place], [id number], [place] tel:[phone] [facility] No Information Cheri Malik. [address], [place], [id number], [place]. tel:[phone] OFFICE/OUTPAT IENT VISIT, [facility], [address], [place], [id number], [place] tel:[phone] [facility] opioid dependence (chief complaint) Opioid dependence Cheri Malik. [address], [place], [id number], [place]. tel:[phone] OFFICE/OUTPAT IENT VISIT, [facility], [address] [place] [address], [place], [id number], [place] tel:[phone] [facility] Vivitrol (chief complaint) Opioid dependence Cheri Malik. [address], [place], [id number], [place]. tel:[phone] OFFICE/OUTPAT IENT VISIT, [facility], [address], [place], [id number], [place] tel:[phone] [facility] Substance Abuse (chief complaint) Opioid dependence Cheri Malik. [address], [place], [id number], [place]. tel:[phone] OFFICE/OUTPAT IENT VISIT, [facility], [address], [place], [id number], [place] tel:[phone] [facility] Substance Abuse (chief complaint) Opioid dependence Cheri Malik. [address], [place], [id number], [place]. tel:[phone] OFFICE/OUTPAT IENT VISIT, [facility], [address], [place], [id number], [place] tel:[phone] [facility] Vivitrol (chief complaint) Opioid dependence Cheri Malik. [address], [place], [id number], [place]. tel:[phone] OFFICE/OUTPAT IENT VISIT, [facility], [address], [place], [id number], [place] tel:[phone] [facility] Vivitrol Injection (chief complaint) Opioid dependence Cheri Malik. [address], [place], [id number], [place]. tel:[phone] OFFICE/OUTPAT IENT VISIT, [facility], [address], [place], [id number], [place] tel:[phone] [facility] substance abuse (chief complaint) Opioid dependence Cheri Malik. [address], [place], [id number], [place]. tel:[phone] OFFICE/OUTPAT IENT VISIT, [facility], [address], [place], [id number], [place] tel:[phone] [facility] Substance abuse (chief complaint) Opioid dependence Cheri Malik. [address], [place], [id number], [place]. tel:[phone] OFFICE/OUTPAT IENT VISIT, [facility], [address], [place], [id number], [place] tel:[phone] [facility] Vivitrol injection (chief complaint) Opioid dependence Cheri Malik. [address], [place], [id number], [place]. tel:[phone] OFFICE/OUTPAT IENT VISIT, [facility], [address] [place], [place], [id number], [place] tel:[phone] [facility] Vivitrol (chief complaint) Opioid dependence Cheri Malik. [address] [place], [place], [id number], [place]. tel:[phone] OFFICE/OUTPAT IENT VISIT, EST [facility], [address] [place], [place], [id number], [place] tel:[phone] [facility] Substance abuse (chief complaint) Opioid dependence Cheri Malik. [address] [place], [place], [id number], [place]. tel:[phone] [facility], [address], [place], [id number], [place] tel:[phone] [facility] Lab Draw (chief complaint) Opioid dependence Cheri Malik. [address] [place], [place], [id number], [place]. tel:[phone] Family History Family Member Type Diagnosis Age At Onset No Information Payers Payer name Insurance type Covered alliance party ID Authoriza tioctavia(s) [employer] Medicaid [place] [id number] Medicaid Wrap - [facility] [place] [id number] Social History Type Description Quantity Date Captured Comments Sex Female Smoking Status No Information Sexual Orientation Straight or heterosexual May Gender Identity Female Chief Complaint And Reason For Visit No Information Reason For Referral Reason For Referral No Information History Of Present Illness Encounter Date Complaint History Of Prese nt Illness opioid dependence Patient here f or # 11 vivitrol RG, labs due 08/08. Denies any issues with injection site or cravings. Last used May 01, 2015. Drug of choice heroin. No chance of had a hysterectomy. Scheduled next 06/28/16. Rachel Robbins RN Vivitrol Pt presents for #10 Vivitrol. Denies complaints or cravings. Reports last used heroin 04/26/15. Reports sister from heroin overdose within the last week. Pt tolerates injection without complaint. Scheduled to return 05/31/16. Shavon Substance Abuse Here for Vivitro l #9. Denies relapse, cravings or injection site complications. S/P hysterectomy. States that she has appointment scheduled with Dr. Estrada at [place] this month. Injection administered in RUOQ of rt gluteal. Next injection scheduled for 05/03/16. Helena Kevin R.N. Substance Abuse Here for Vivitro l #8. Denies relapse, cravings, or injection site complications. Staes last opioid use was 04/2015. No possibility of , S/P hysterectomy. Vivitrol administered in LUOQ of lt gluteal. Next injection scheduled 04/05/15. Helena Kevin R.N. Vivitrol Pt presents for #7 Vivitrol. Reports last used opiods 04/26/15. Denies complaints, cravings, and drug use. Venipuncture successful on 1st attempt right hand, labwork drawn as ordered. Pt tolerates injection without complaint. Pt scheduled to return 03/08/16. Shavon Vivitrol Injection Patient prese nts for Vivitrol #6. Denies any cravings, drug use, problems, or concerns. Vivitrol administered in left gluteal. Patient tolerated well. RTC 02/09/2016 for Vivitrol #7 and labwork.--Robin Syed R.N. substance abuse Patient here for vivitrol #5 RG. Denies any cravings, drug use or problems at injection site. Patient has had a hysterectomy. Labs due 02/07. Injection given patient tolerated well. Dominick SEXTON Substance abuse Here for Vivitro l #4. Denies relapse, cravings, or injection site complications. S/P hysterectomy. Injection administered in LUOQ of lt gluteal. Next injection scheduled for 12/15/15. Helena Kevin R.N. Vivitrol injection Patient prese nts from rehab center for Vivitrol #3. Denies any recent drug use, problems or concerns. Vivitrol administered in right gluteal. Patient tolerated well. RTC 11/18/2015 for Vivitrol #4. --Robin Syed R.N. Vivitrol Pt here for #2 V ivitrol. Denies complaints and cravings. Reports last used heroin 04/26/15. Pt tolerates injection without complaint. Pt scheduled to return 10/20/15. DIANAjean carlosBailee Substance abuse Here for Vivitro l injection #1. States last opioid use was 04/2015. Currently in [facility] in [place], [place]. Denies relapse, cravings, or possibility of , S/P hysterectomy. Pt educated on Vivitrol: action, use, possible side effects. Educational and identification materials provided to pt. Injection administered in LUOQ of lt gluteal. Next injection scheduled for 09/22/2015 at 2014. Documentation provided to pt to give to Rehab to discontinue oral naltrexone. Helena Kevin R.N. Lab Draw Patient presents from in-patient rehabilitation facility for labs to be drawn for vivitrol program. Patient states that she is 1 month clean. States that she had a hysterectomy many years ago. Patient advises that she does have hepatitis C. Labs drawn as ordered from right antcubital. Patient tolerated well. --Robin Syed RAdrienN. Functional Status Date Functional Assessmen t No Information Instructions Date Instruction Additional Infor mation No Information Assessments Type Assessment Date No Information Patient Care Teams Name Effective Dates (start - stop) Status Members No Information
--- OUTSIDE RECORDS SUMMARY | 2023-06-14 09:00 | XMS_ITS ---
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 Name Role Phone Estelle Veliz Primary Care Provider REASON FOR VISIT abdominal pain Social History Sex Assigned At : Social History Observation Description Sex Assigned At Female Encounters Encounter Location Date Provider Diagnosis [facility] [address] [place] [address] 06/14/2023 Estelle Veliz Plan Of Treatment No Information Progress Notes * JERAD BROWN ADOB: [birth year] (49 yo F)Acc No.[id number]:06/14/2023 PROGRESS NOTES Patient: JERAD ORTIZ Provider: Seng Veliz :1975 A ge:48 Y S ex:Female Date:06/14/2023 [id number] Subjective: * Chief Complaints: * 1 . Abdominal pain. * Medical History: Objective: * Vitals: Assessment: Plan: * Treatment: * Images: * Electronic signature of Charles Veliz CNP on 09/29/2024 at 08:56 PM EDT Sign off status: Pending * Provider: Seng Veliz Date: 06/14/2023 Generated for Jayi ng/Famanavg/eTransmitting on: 0 09/29/2024 08:56 PM EDT
--- OUTSIDE RECORDS SUMMARY | 2023-10-11 15:41 | XMS_ITS | Encounter Summary ---
Author Organization [facility] Address [address] [place] [address] Phone Care Team Providers Care Excel Analyst Name Role Phone Generic Provider, No Assigned Pcp MD Primary Car e Provider Unavailable Reason for Visit * Auth/Cert Specialty Diagnoses / Procedures Referred By Michi t Referred To Contact Diagnoses Chronic back pain greater than 3 [place] [address] Department [place] [address] Phone: tel: fax: [facility] [id number] [place] [address] Referral ID Status Reason Start Date Expiration Date Visits Re quested Visits Authorized [id number] 1 1 Encounter Details Date Type Department Care Team (Late st Contact Info) Description 10/11/2023 3:41 PM EDT Hospital Encounter [place] [id number] [place] [id number] [place] [address] Department of Neurological Surgery [place] [phone] Social History Tobacco Use Types Packs/Day Years Used Date Smoking Tobacco: Every Day Cigarettes 0.5 33.5 Started: 1989 Smokeless Tobacco: Never Alcohol Use Standard Drinks/Week Comments Never 0 (1 standard drink = 0.6 oz pur e alcohol) B1300 Health Literacy Answer Date Recor ded How often do you need to hav e someone help you when you read instructions, pamphlets, or other written material from your doctor or pharmacy? Never 06/12/2024 [facility] Utilities Answer Date Recorded In the past 12 months has e [employer], oil, or water [employer] threatened to shut off services in your home? No 06/12/2024 Humiliation, Afraid, Rape, and Kick questionnair e Answer Date Recorded Within the last year, have y ou been afraid of your partner or ex-partner? No 06/12/2024 Within the last year, have y ou been humiliated or emotionally abused in other ways by your partner or ex-partner? No Within the last year, have y ou been kicked, hit, slapped, or otherwise physically hurt by your partner or ex-partner? No 06/12/2024 Within the last year, have y ou been raped or forced to have any kind of sexual activity by your partner or ex-partner? No 06/12/2024 Social Connection and Isolat ion Panel [NHANES] Answer Date Recorded In a typical week, how many times do you talk on the phone with family, friends, or neighbors? More than three times a week 06/12/2024 How often do you get togethe r with friends or relatives? Twice a week 06/12/2024 How often do you attend chur or taoist services? Never 06/12/2024 Do you belong to any clubs o r organizations such as zoroastrian groups, unions, fraternal or athletic groups, or school groups? No 06/12/2024 How often do you attend meet ings of the clubs or organizations you belong to? Never 06/12/2024 Are you , , di vorced, , never , or living with a partner? 06/12/2024 AUDIT-C Answer Date Recorded Q1: How often do you have a drink containing alcohol? Never 06/12/2024 Q2: How many drinks containi ng alcohol do you have on a typical day when you are drinking? Patient does not drink Q3: How often do you have si x or more drinks on one occasion? Never 06/12/2024 Overall Financial Resource Strain (CARDIA) Answe r Date Recorded How hard is it for you to pa y for the very basics like food, housing, medical care, and heating? Not hard at all 06/12/2024 PHQ-2 Answer Date Recorded Patient Health Questionnaire-2 Score 0 06/12/2024 [facility] - Occupational Stress Questionnaire Answer Date Recorded Do you feel stress - tense, restless, nervous, or anxious, or unable to sleep at night because your mind is troubled all the time - these days? Not at all 06/12/2024 Exercise Vital Sign Answer Date Recorde d On average, how many days pe r week do you engage in moderate to strenuous exercise (like a brisk walk)? 0 days 06/12/2024 On average, how many minutes do you engage in exercise at this level? 0 min 06/12/2024 Hunger Vital Sign Answer Date Recorded Within the past 12 months, y ou worried that your food would run out before you got the money to buy more. Never true 06/13/19 25 Within the past 12 months, t he food you bought just didn't last and you didn't have money to get more. Never true 06/12/2024 PRAPARE - Transportation Answer Date Re corded In the past 12 months, has l ack of transportation kept you from medical appointments or from getting medications? No 05/24 In the past 12 months, has l ack of transportation kept you from meetings, work, or from getting things needed for daily living? No 06/12/2024 Housing Stability Vital Sign Answer Gerry e Recorded In the last 12 months, was t here a time when you were not able to pay the mortgage or rent on time? No 06/12/2024 In the past 12 months, how m any times have you moved where you were living? 0 06/12/2024 At any time in the past 12 m [facility], were you homeless or living in a intermediate (including now)? No 06/12/2024 Comments No Sex and Gender Information Value Date Recorded Sex Assigned at Female 08/21/2023 6:49 AM EDT Legal Sex Female 10:27 PM EDT Gender Identity Female 08/21/2023 6:49 AM EDT Sexual Orientation Not on file COVID-19 Exposure Response Date Recorded In the last 10 days, have yo u been in contact with someone who was confirmed or suspected to have Coronavirus/COVID-19? No / Unsure 08/28/2024 8:41 PM EDT documented as of this encounter Functional Status * Audit-C Score Answer Date of Assessment Author 0 06/12/2024 1:36 PM EDT Raquel Gabriel RN * Question Answer Date of Assessment Author Q1: How often do you have a drink containing alcohol? Never 06/12/2024 1:36 PM EDT Raquel Gabriel RN Q2: How many drinks containing alcohol do you have on a typical day when you are drinking? Patient does not drink 06/12/2024 1:36 PM EDT Raquel Gabriel RN Q3: How often do you have six or more drinks on one occasion? Never 06/12/2024 1:36 PM EDT Raquel Gabriel RN * Over the past 2 weeks, how often have you been bothered by any of the following problems? Question Answer Date of Assessment Author Patient Health Questionnaire -2 Score 0 06/12/2024 1:36 PM EDT Raquel Gabriel RN * Calculated C-SSRS Risk Score (Lifetime/Recent) Answer Date of Assessment Author No Risk Indicated 08/28/2024 8:42 PM EDT Mavis Romero RN * [place] Suicide Severity Rating Scale (Screener/Recent Self-Report) Question Answer Date of Assessment Author 1. Wish to be (Past 1 Month) No 025 8:42 PM EDT Mavis Romero, DARSHAN 2. Non-Specific Active Suici barbara Thoughts (Past 1 Month) No 08/28/2024 8:42 PM EDT Mavis Romero , DARSHAN 6. Suicidal Behavior (Lifetime) No 8:42 PM EDT Mavis Romero, RN * Question Answer Date of Assessment Author Little interest or pleasure in doing things Not at all 06/12/2024 1:36 PM EDT Raquel Gabriel RN Feeling down, depressed, or hopeless Not at all 06/12/2024 1:36 PM EDT Raquel Gabriel RN documented as of this encounter Plan of Treatment Upcoming Encounters Date Type Department Care Team (Late st Contact Info) Description 10/20/2024 8:30 AM EDT Office Visit [facility] Neurosurgery [address] [address] Jori Harman MD PhD [address] [address] documented as of this encounter Visit Diagnoses Not on filedocumented in this encounter Additional Health Concerns Infection Onset Date Last Indicated Resolved Time C. difficile Rule-Out 11/13/2023 11/13/20232023 5:23 AM EDT Assessment Noted Time A fall risk assessment has been complete d for the patient 06/05/2023 8:19 AM EDT documented as of this encounter Care Teams Excel Analyst Relationship Specialty Start Date End Date Generic Provider, No [place] [address] PCP - General Atm Manager 08/02/23 12/06/23 documented as of this encounter
--- OUTSIDE RECORDS SUMMARY | 2024-09-16 18:13 | XMS_ITS | Encounter Summary ---
Author Organization [facility] 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 Primary Care Provi evelyn Reason for Visit * Reason Comments Back Pain chronic Encounter Details Date Type Department Care Team (Late st Contact Info) Description 09/16/2024 6:13 PM EDT - 09/16/2024 7:02 PM EDT Emergency [facility] Emergency Department [address] [id number] Chronic left-sided low back pain with left-sided sciatica (Primary Dx) Discharge Disposition: Home or Self Care Social History Tobacco Use Types Packs/Day Years Used Date Smoking Tobacco: Every Day Cigarettes 0.5 15 Passive Smoke Exposure: Current Alcohol Use Standard Drinks/Week Comments No 0 (1 standard drink = 0.6 oz pur e alcohol) AUDIT-C Answer Date Recorded Q1: How often do you have a drink containing alcohol? Never 09/16/2024 Q2: How many drinks containi ng alcohol do you have on a typical day when you are drinking? Patient does not drink Q3: How often do you have si x or more drinks on one occasion? Never 09/16/2024 Interpersonal Safety Domain Source: IP Abuse Scr eening Answer Date Recorded Physical abuse Denies 09/16/2024 Verbal abuse Denies 09/16/2024 Emotional abuse Denies 09/16/2024 Financial abuse Denies 09/16/2024 Sexual abuse Denies 09/16/2024 Comments No Sex and Gender Information Value Date Recorded Sex Assigned at Female 09/24/2024 8:22 AM EDT Legal Sex Female 8:32 PM EST Gender Identity Female 09/24/2024 8:22 AM EDT Sexual Orientation Choose not to disclose 2024 8:22 AM EDT documented as of this encounter Last Filed Vital Signs Vital Sign Reading Time Taken Comments Blood Pressure 139/91 09/16/2024 6:07 PM EDT Pulse 82 09/16/2024 6:07 PM EDT Temperature 36.6 C (97.9 F) 09/16/2024 6:07 PM EDT Respiratory Rate 18 09/16/2024 6:07 PM EDT Oxygen Saturation 98% 09/16/2024 6:07 PM EDT Inhaled Oxygen Concentration - - Weight 118.8 kg (262 lb) 09/16/2024 6:07 PM EDT Height - - Body Mass Index 46.41 09/14/2024 4:57 PM EDT documented in this encounter Functional Status documented as of this encounter Discharge Instructions * Discharge Instructions* Cydney Pittman NP-C - 09/16/2024 6:22 PM EDT Follow-up with PCP, pain management. Return to ED if any new, or worsening symptoms. * Attachments The following attachments cannot be sent through Care Everywhere. * Back: Stretches: Exercises (Cymraes) * Back Pain (Cymraes) documented in this encounter Medications at Time of Discharge oxyCODONE (ROXICODONE) 5 MG immediate release tabletIndication s:Failed back syndrome Take 1 tablet by mouth 3 times daily as needed for Pain for up to 30 days. Max Daily Amount: 15 mg 90 tablet 09/07/2024 10/07/2024 acetaminophen (TYLENOL) 500 MG tablet Take 1 tablet by mouth 4 times daily as needed for Pain 120 tablet 09/06/2024 10/06/2024 ibuprofen (ADVIL;MOTRIN) 600 MG tablet Take 1 tablet by mouth 3 times daily as needed for Pain 30 tablet 08/20/2024 phentermine (ADIPEX-P) 37.5 MG tablet Take 1 tablet by mouth daily. 07/15/2024 cyclobenzaprine (FLEXERIL) 10 MG tablet Take 1 tablet by mouth 3 times daily as needed 09/21/2023 DULoxetine (CYMBALTA) 60 MG extended release capsule Take by mouth daily 06/23/2024 albuterol sulfate (PROAIR RESPICLICK) 108 (90 Base) MCG/ACT aerosol powder inhalation Inhale 2 puffs into the lungs every 4 hours as needed 05/02/2024 hydrOXYzine HCl (ATARAX) 25 MG tablet Take 1 tablet by mouth 3 times daily as needed ondansetron (ZOFRAN) 4 MG tablet Take 1 tablet by mouth every 8 hours as needed for Nausea or Vomiting polyethylene glycol (GLYCOLAX) 17 g packet Take 1 packet by mouth daily 05/17/2024 SUMAtriptan (IMITREX) 50 MG tablet Take 1 tablet by mouth 06/14/2024 topiramate (TOPAMAX) 25 MG tablet Take 1 tablet by mouth 2 times daily 06/14/2024 naloxone 4 MG/0.1ML LIQD nasal spray 1 spray by Nasal route as needed for Opioid Reversal 2 each 1 07/14/2024 omeprazole (PRILOSEC) 20 MG capsule Take 1 capsule by mouth 2 times daily (with meals) methocarbamol (ROBAXIN) 750 MG tablet Take 1 tablet by mouth 4 times daily for 10 days 40 tablet 09/06/2024 09/16/2024 documented as of this encounter Plan of Treatment Upcoming Encounters Date Type Department Care Team (Latest Contact Info) Description 10/05/2024 10:15 AM EDT Office Visit [facility] [address] [place] [address] Michel Sullivan, [address] [place] [address] Return in about 4 weeks (around 10/05/2024) for Medication refill. Consider ITP injection based on discussion with Dr. Acosta . 10/08/2024 9:00 AM EDT Hospital Encounter [facility] OR [address] [place] [address] Michel Sullivan DO [address] [place] [address] 10/08/2024 9:00 AM EDT - 10/08/2024 10:38 AM EDT Surgery [facility] OR [address] [place] [address] Michel Sullivan DO [address] [place] [address] INTRATHECAL PAIN PUMP TRIAL / 1.5 HOURS / 1 C-ARM / DINORA SITE / Intrathecal Pump Trial. 0.1mg/mL of morphine and 0.1mg/mL of Bupivacaine in a 5mL syringe. 10/13/2024 9:15 AM EDT Office Visit [facility] [address] [place] [id number] Michel Sullivan, [address] [place] [id number] 10/08/24 PAIN PUMP TRIAL. 01/01/2025 1:45 PM EDT Office Visit [facility] [address] [place] [id number] [place] [address] [place] [address] [place] [id number] Video link sent Scheduled Procedures Name Priority Associated Diagnoses Date/Ti me NERVE BLOCK (DEFINE) Failed back syndrome 10/08/2024 9:00 AM EDT documented as of this encounter Visit Diagnoses Diagnosis Failed back syndrome- Primary Other unspecified back disorder Chronic left-sided low back pain with left-sided sciatica- Primary Failed back syndrome Other unspecified back disorder documented in this encounter Administered Medications Inactive Administered Medications - up to 3 most recent administrations Medication Order MAR Action Action Date Dose Rate Site morphine sulfate (PF) injection 4 mg 4 mg, IntraMUSCular, ONCE, 1 dose, On Sat09/16/24 at 1822, If oral and IV narcotics ordered, use oral first and only use IV if oral is ineffective or cannot take oral. Do Not give oral and IV within 1 hour of each other unless specifically ordered. Given 09/16/2024 6:28 PM EDT 4 mg Deltoid Right documented in this encounter Active and Recently Administered Medications Times are shown in EDT. Scheduled Medication Order 09/14/2024 09/15/2024 09/16/2024 morphine sulfate (PF) injection 4 mg (COMPLETED) 4 mg, IntraMUSCular, ONCE, 1 dose, On Sat09/16/24 at 1822, If oral and IV narcotics ordered, use oral first and only use IV if oral is ineffective or cannot take oral. Do Not give oral and IV within 1 hour of each other unless specifically ordered. 1828 (Given - Provid er: Jose Enrique Ace LPN) documented in this encounter Care Teams Devops Developer Relationship Specialty Start Date End Date Carole Kent APRN - MARINA [address] [place] [address] PCP - General Nurse Practitioner 06/25/24 documented as of this encounter
--- OUTSIDE RECORDS SUMMARY | 2024-09-17 17:34 | XMS_ITS | Encounter Summary ---
Author Organization [facility] Address [address] [place] [id number] Care Team Providers Care Garbage Collection Supervisor Name Role Phone No, Physician Primary Care Provider Unavailabl e Reason for Visit * Reason Comments Back Pain Encounter Details Date Type Department Care Team (Late st Contact Info) Description 09/17/2024 5:34 PM EDT - 09/17/2024 6:53 PM EDT Emergency [facility] Emergency Department [address] [place] [id number] Teresa Lipscomb MD [address] [place] [address] Discharge Disposition: Home Social History Tobacco Use Types Packs/Day Years Used Date Smoking Tobacco: Every Day Cigarettes 0.5 30.8 Started: 12/28/1993 Smokeless Tobacco: Never Alcohol Use Standard Drinks/Week Comments Never 0 (1 standard drink = 0.6 oz pur e alcohol) Comments Unknown Sex and Gender Information Value Date Recorded Sex Assigned at Not on file Legal Sex Female 12:32 PM EDT Gender Identity Female 12/29/2023 2:38 PM EDT Sexual Orientation Straight 12/29/2023 2: 38 PM EDT documented as of this encounter Last Filed Vital Signs Vital Sign Reading Time Taken Comments Blood Pressure 120/109 09/17/2024 5:36 PM EDT Pulse 114 09/17/2024 5:36 PM EDT Temperature 36.2 C (97.2 F) 09/17/2024 5:36 PM EDT Respiratory Rate 16 09/17/2024 6:38 PM EDT Oxygen Saturation 100% 09/17/2024 5:36 PM EDT Inhaled Oxygen Concentration - - Weight 117.9 kg (260 lb) 09/17/2024 5:36 PM EDT Height 160 cm (5' 3 ) 09/17/2024 5:36 PM EDT Body Mass Index 46.06 09/17/2024 5:36 PM EDT documented in this encounter Discharge Instructions * Attachments The following attachments cannot be sent through Care Everywhere. * Back: Stretches: Exercises (Prydeinig) * Low Back Pain: Exercises (Prydeinig) documented in this encounter Medications at Time of Discharge FLUoxetine (PROZAC) 20 MG capsule Take 3 (three) capsules (60 mg total) by mouth daily . ibuprofen (ADVIL,MOTRIN) 800 MG tablet Take 1 (one) tablet (800 mg total) by mouth every 6 (six) hours as needed for pain . cyclobenzaprine (FLEXERIL) 10 MG tablet Take 1 (one) tablet (10 mg total) by mouth 3 (three) times a day as needed for muscle spasms . 30 tablet 09/17/2024 methylPREDNISolo ne (MEDROL DOSEPACK) 4 mg tablet Follow package directions . 21 tablet 09/17/2024 5 documented as of this encounter ED Notes * Darshan Queen RN - 09/17/2024 6:53 PM EDT Patient given discharge instructions and follow up information. Patient verbalized understanding, no questions. Pt ambulatory to exit with steady gait, no s/s of distress. * Teresa Lipscomb MD - 09/17/2024 5:41 PM EDT ED PROVIDER NOTE [facility] EMERGENCY DEPARTMENT NAME: Diana Tracy AGE: 49 y.o. : 1975 VISIT DATE: 09/17/2024 CSN: [id number] PCP: No, Physician Chief Complaint Patient presents with Back Pain 49-year-old female patient resents for acute on chronic lower back pain, patient states that her flareup, dull pain, radiates on legs, no numbness or tingling History reviewed. No pertinent past medical history. History reviewed. No pertinent surgical history. History reviewed. No pertinent family history. Social History [1] Previous Medications Medication Sig FLUoxetine (PROZAC) 20 MG capsule Take 3 (three) capsules (60 mg total) by mouth daily . ibuprofen (ADVIL,MOTRIN) 800 MG tablet Take 1 (one) tablet (800 mg total) by mouth every 6 (six) hours as needed for pain . [] orphenadrine (NORFLEX) 100 mg tablet Take 1 (one) tablet (100 mg total) by mouth 2 (two) times a day for 10 days . Allergies[2] Review of Systems All other systems reviewed and are negative. Patient Vitals for the past 24 hrs: BP Temp Temp src Pulse Resp SpO2 Height Weight 09/17/24 1736 (!) 120/109 97.2 ??F (36.2 ??C) Temporal (!) 114 (!) 20 100 % 5' 3 117.9 kg (260 lb) Physical Exam Vitals and nursing note reviewed. Constitutional: Appearance: Normal appearance. HENT: Head: Normocephalic and atraumatic. Right Ear: External ear normal. Left Ear: External ear normal. Nose: Nose normal. Mouth/Throat: Mouth: Mucous membranes are moist. Pharynx: Oropharynx is clear. Eyes: Extraocular Movements: Extraocular movements intact. Conjunctiva/sclera: Conjunctivae normal. Pupils: Pupils are equal, round, and reactive to light. Cardiovascular: Rate and Rhythm: Normal rate and regular rhythm. Musculoskeletal: General: Normal range of motion. Cervical back: Normal range of motion and neck supple. Comments: Lumbar tenderness in paravertebral space Pulmonary: Effort: Pulmonary effort is normal. Breath sounds: Normal breath sounds. Abdominal: General: Abdomen is flat. Bowel sounds are normal. Palpations: Abdomen is soft. Neurological: General: No focal deficit present. Mental Status: She is alert and oriented to person, place, and time. Mental status is at baseline. Psychiatric: Mood and Affect: Mood normal. Thought Content: Thought content normal. Laboratory & Radiographic Imaging (if done): No results found for this visit on 09/17/24. No orders to display Procedures Medical Decision Making Given History and Exam the patient appears to be at low risk for Spinal Cord Compression Syndrome, Vertebral Malignancy/Mets, acute Spinal Fracture, Vertebral Osteomyelitis, Epidural Abscess, Infected or Obstructing Kidney Stone. Their presentation appears most likely to be secondary to non-emergent musculoskeletal etiology vs non-emergent disc herniation. ED Workup: Defer imaging and labwork for outpatient follow up at this time. Disposition: Discharge. Strict return precautions discussed with patient with full understanding. Advised patient to follow up promptly with primary care provider The patient has been informed that they may have pre-hypertension or hypertension based on a blood pressure reading in the Emergency Department. I recommend that the patient call the primary care provider listed on their discharge instructions or a physician of their choice as soon as possible to arrange follow-up in the next 4 weeks for further evaluation of possible pre-hypertension or hypertension. . Clinical Impression: No diagnosis found. ED Disposition None Follow-up Information Follow-up information has not been specified. Contact information for after-discharge care Follow-up information has not been specified. [1] Social History Socioeconomic History Marital status: Legally Tobacco Use Smoking status: Every Day Current packs/day: 0.50 Average packs/day: 0.5 packs/day for 30.7 years (15.4 ttl pk-yrs) Types: Cigarettes Start date: 12/28/1993 Smokeless tobacco: Never Substance and Sexual Activity Alcohol use: Never Drug use: Never Social Drivers of Health Financial Resource Strain: Low Risk (06/12/2024) Received from [facility] Overall Financial Resource Strain (CARDIA) Difficulty of Paying Living Expenses: Not hard at all Food Insecurity: No Food Insecurity (06/12/2024) Received from [facility] Hunger Vital Sign Worried About Running Out of Food in the Last Year: Never true Ran Out of Food in the Last Year: Never true Transportation Needs: No Transportation Needs (06/12/2024) Received from [facility] PRAPARE - Transportation Lack of Transportation (Medical): No Lack of Transportation (Non-Medical): No Physical Activity: Inactive (06/12/2024) Received from [facility] Exercise Vital Sign Days of Exercise per Week: 0 days Minutes of Exercise per Session: 0 min Stress: No Stress Concern Present (06/12/2024) Received from [facility] [place] [facility] [employer] - Occupational Stress Questionnaire Feeling of Stress : Not at all Recent Concern: Stress - Stress Concern Present (04/02/2024) Received from [facility] [place] [facility] - Occupational Stress Questionnaire Feeling of Stress : Rather much Social Connections: Socially Isolated (06/12/2024) Received from [facility] Social Connection and Isolation Panel [NHANES] Frequency of Communication with Friends and Family: More than three times a week Frequency of Social Gatherings with Friends and Family: Twice a week Attends [employer] Services: Never Active Member of Clubs or Organizations: No Attends Club or Organization Meetings: Never Marital Status: Housing Stability: Low Risk (06/12/2024) Received from [facility] Housing Stability Vital Sign Unable to Pay for Housing in the Last Year: No Number of Times Moved in the Last Year: 0 Homeless in the Last Year: No [2] Allergies Allergen Reactions Diclofenac Hives Gabapentin Other (See Comments) and Unknown Leg swelling Hydrocodone Hives Hydrocodone-Acetaminophen Hives Penicillins Unknown Pregabalin Other (See Comments), Swelling and Unknown BLE Tylenol [Acetaminophen] Liver Failure Nabumetone Nausea And Vomiting, Nausea and vomiting and Rash Teresa Lipscomb MD 09/17/24 1741 * Darshan Queen RN - 09/17/2024 5:35 PM EDT Patient reports a flare up of chronic lower back pain . documented in this encounter Plan of Treatment Not on file documented as of this encounter Visit Diagnoses Diagnosis Lower back pain- Primary Lumbago documented in this encounter Administered Medications Inactive Administered Medications - up to 3 most recent administrations Medication Order MAR Action Action Date Dose Rate Site cyclobenzaprine (FLEXERIL) tablet 10 mg 10 mg, Oral, Once, On Shira 09/17/24 at 1745, For 1 dose Given 09/17/2024 6:01 PM EDT 10 mg HYDROmorphone (DILAUDID) injection 1 mg 1 mg, Intramuscular, Once, On Shira 09/17/24 at 1815, For 1 dose Given 09/17/2024 6:38 PM EDT 1 mg Left Deltoid lidocaine patch 1 patch 1 patch, Transdermal, Administer over 12 Hours, Once, On Shira 09/17/24 at 1745, For 1 dose, Apply to lower back for 12 hours, then remove patch for 12 hours. Patch Applied 09/17/2024 6:01 PM EDT 1 patch Other predniSONE (DELTASONE) tablet 60 mg 60 mg, Oral, Once, On Shira 09/17/24 at 1745, For 1 dose Given 09/17/2024 6:01 PM EDT 60 mg documented in this encounter Active and Recently Administered Medications Times are shown in EDT. Scheduled Medication Order 09/15/2024 09/16/2024 09/17/2024 cyclobenzaprine (FLEXERIL) tablet 10 mg (COMPLETED) 10 mg, Oral, Once, On Shira 09/17/24 at 1745, For 1 dose 180 (Given - Provid er: Darshan Queen RN) HYDROmorphone (DILAUDID) injection 1 mg (COMPLETED) 1 mg, Intramuscular, Once, On Shira 09/17/24 at 1815, For 1 dose 1838 (Given - Provid er: Darshan Queen RN) lidocaine patch 1 patch 1 patch, Transdermal, Administer over 12 Hours, Once, On Shira 09/17/24 at 1745, For 1 dose, Apply to lower back for 12 hours, then remove patch for 12 hours. 180 (Patch Applied - Provider: Darshan Queen RN - Comment: lower back)1853 (Due: Patch Removed - Provider: Discharge Provider, Automatic - Comment: Time automatically adjusted from order being discontinued) predniSONE (DELTASONE) tablet 60 mg (COMPLETED) 60 mg, Oral, Once, On Shira 09/17/24 at 1745, For 1 dose 180 (Given - Provid er: Darshan Queen RN) traMADol (ULTRAM) tablet 50 mg 50 mg, Oral, Once, On Shira 09/17/24 at 1745, For 1 dose 1745 (Not Given - Pr ovider: Darshan Queen RN - Reason: Patient/family refused - Comment: Pt states: tramadol doesn't work, they usually give dilaudid. Dr. Lipscomb aware.) documented in this encounter Care Teams Garbage Collection Supervisor Relationship Specialty Start Date End Date No, Physician [facility] PCP - General 12/29/23 documented as of this encounter
--- OUTSIDE RECORDS SUMMARY | 2024-09-27 10:23 | XMS_ITS | Encounter Summary ---
Author Organization [facility] Address [address] [place] [id number] Care Team Providers Care Carton Liner Name Role Phone No, Physician Primary Care Provider Unavailabl e Reason for Visit * Reason Comments Back Pain Encounter Details Date Type Department Care Team ([facility] st Contact Info) Description 09/27/2024 10:23 AM EDT - 09/27/2024 10:59 AM EDT Emergency [facility] Emergency Department [address] [place] [id number] Dagoberto Butts, [address] [place] [address] Discharge Disposition: Home Social History Tobacco Use [...] Sign Reading Time Taken Comments Blood Pressure 149/112 09/27/2024 10:27 AM EDT Pulse 109 09/27/2024 10:25 AM EDT Temperature 36.6 C (97.9 F) 09/27/2024 10:25 AM EDT Respiratory Rate 16 09/27/2024 10:43 AM EDT Oxygen Saturation 97% 09/27/2024 10:25 AM EDT Inhaled Oxygen Concentration - - Weight 117.9 kg (260 lb) 09/27/2024 10:25 AM EDT Height 160 cm (5' 3 ) 09/27/2024 10:25 AM EDT Body Mass Index 46.06 09/27/2024 10:25 AM EDT documented in this encounter Discharge Instructions * Discharge Instructions* Dagoberto Butts DO - 09/27/2024 10:36 AM EDT Please take steroids as directed return to ED for concerning worsening symptoms. * Attachments The following attachments cannot be sent through Care Everywhere. * Back Pain (Norwegian) documented in this encounter Medications at Time of Discharge FLUoxetine (PROZAC) 20 MG capsule Take 3 (three) capsules (60 mg total) by mouth daily . ibuprofen (ADVIL,MOTRIN) 800 MG tablet Take 1 (one) tablet (800 mg total) by mouth every 6 (six) hours as needed for pain . predniSONE (DELTASONE) 50 MG tablet Take 1 (one) tablet (50 mg total) by mouth daily for 6 days . 6 tablet 09/27/2024 10/03/2024 cyclobenzaprine (FLEXERIL) 10 MG tablet Take 1 (one) tablet (10 mg total) by mouth 3 (three) times a day as needed for muscle spasms . 30 tablet 09/17/2024 09/27/2024 documented as of this encounter ED Notes * Dagoberto Butts DO - 09/27/2024 10:37 AM EDT ED PROVIDER NOTE [facility] EMERGENCY DEPARTMENT NAME: Diana Tracy AGE: 49 y.o. : 1975 VISIT DATE: 09/27/2024 CSN: [id number] PCP: No, Physician Chief Complaint Patient presents with Back Pain Patient is a 49-year-old female with a past medical history of chronic lower back pain with multiple lower back surgeries who presents today for concern of exacerbation of chronic back pain. Patient states she is sleeping on air mattress over this weekend and states she has had exacerbation of her chronic lower lumbar pain with radiation down her left leg. Patient missed her previous history of chronic back pain with left sided sciatica. Patient denies any paresthesias or loss of function, midline spinal canal tenderness, bowel or bladder continence, chest pain, shortness of breath or additional constitutional symptoms. Patient states she is getting a pain pump in 10 days and is requesting pain medication. Patient denies any history traumatic injury History reviewed. No pertinent past medical history. History reviewed. No pertinent surgical history. History reviewed. No pertinent family history. Social History [1] Previous Medications Medication Sig cyclobenzaprine (FLEXERIL) 10 MG tablet Take 1 (one) tablet (10 mg total) by mouth 3 (three) times a day as needed for muscle spasms . FLUoxetine (PROZAC) 20 MG capsule Take 3 (three) capsules (60 mg total) by mouth daily . ibuprofen (ADVIL,MOTRIN) 800 MG tablet Take 1 (one) tablet (800 mg total) by mouth every 6 (six) hours as needed for pain . Allergies[2] Review of Systems Constitutional: Negative for chills and fever. Eyes: Negative for pain. Respiratory: Negative for cough, chest tightness and shortness of breath. Cardiovascular: Negative for chest pain and palpitations. Gastrointestinal: Negative for abdominal pain, nausea and vomiting. Genitourinary: Negative for flank pain. Musculoskeletal: Positive for back pain. Negative for arthralgias and myalgias. Skin: Negative for rash. Neurological: Negative for dizziness, syncope, light-headedness and headaches. Psychiatric/Behavioral: Negative for agitation. All other systems reviewed and are negative. Patient Vitals for the past 24 hrs: BP Temp Temp src Pulse Resp SpO2 Height Weight 09/27/24 1027 (!) 149/112 -- -- -- -- -- -- -- 09/27/24 1025 -- 97.9 ??F (36.6 ??C) Temporal (!) 109 18 97 % 5' 3 117.9 kg (260 lb) Physical Exam Vitals and nursing note reviewed. Constitutional: Appearance: Normal appearance. HENT: Head: Normocephalic. Eyes: Pupils: Pupils are equal, round, and reactive to light. Cardiovascular: Rate and Rhythm: Normal rate and regular rhythm. Pulses: Normal pulses. Heart sounds: Normal heart sounds. Musculoskeletal: Cervical back: Normal range of motion. Comments: Bilateral lumbar paraspinal tenderness with associated hypertonicity. No midline spinal canal tenderness or gross deformity. Stable pelvis. Pulmonary: Effort: Pulmonary effort is normal. Breath sounds: Normal breath sounds. Skin: General: Skin is warm. Capillary Refill: Capillary refill takes less than 2 seconds. Neurological: General: No focal deficit present. Mental Status: She is alert and oriented to person, place, and time. Cranial Nerves: No cranial nerve deficit. Sensory: No sensory deficit. Motor: No weakness. Coordination: Coordination normal. Gait: Gait normal. Psychiatric: Mood and Affect: Mood normal. Laboratory & Radiographic Imaging (if done): No results found for this visit on 09/27/24. No orders to display Procedures Medical Decision Making Patient seen and evaluated for concern of exacerbation of chronic back pain. Patient was given morphine while in the emergency department and prednisone. Patient did not have any red flags of back pain or history of additional traumatic injury and therefore additional imaging was not done at this time. Patient given a prescription for prednisone for home and provided appropriate orthopedic follow-up. Patient discharged in stable condition. The patient has been informed that they [...] possible pre-hypertension or hypertension. . Clinical Impression: 1. Acute exacerbation of chronic low back pain ED Disposition ED Disposition Discharge Condition Stable Comment Diana Tracy discharged to home/self care in stable condition. Follow-up Information 1. Loretta Mayo MD. Specialty: Family Medicine Why: As needed, If symptoms worsen [address] [address] 2. Cameron Lawson MD. Specialty: Orthopedic Surgery Why: As needed, If symptoms worsen [address] [facility] [id number] Contact information for after-discharge care Follow-up information has not been specified. New Prescriptions predniSONE (DELTASONE) 50 MG tablet Take 1 (one) tablet (50 mg total) by mouth daily for 6 days . [1] Social History Socioeconomic History Marital status: Legally Tobacco Use Smoking status: Every Day Current packs/day: 0.50 Average packs/day: 0.5 packs/day for 30.7 years (15.4 ttl pk-yrs) Types: Cigarettes Start date: 12/28/1993 Smokeless tobacco: Never Substance and Sexual Activity Alcohol use: Never Drug use: Never Social Drivers of Health Financial Resource Strain: Low Risk (06/12/2024) Received from [facility] Overall Financial Resource Strain (CARDIA) Difficulty of Paying Living Expenses: Not hard at all Food Insecurity: No Food Insecurity (06/12/2024) Received from [facility] Hunger Vital Sign Worried About Running Out of Food in the Last Year: Never true Ran Out of Food in the Last Year: Never true Transportation Needs: No Transportation Needs (06/12/2024) Received from [facility] PRAPARE - Transportation Lack of Transportation (Medical): No Lack of Transportation (Non-Medical): No Physical Activity: Inactive (06/12/2024) Received from [facility] Exercise Vital Sign Days of Exercise per Week: 0 days Minutes of Exercise per Session: 0 min Stress: No Stress Concern Present (06/12/2024) Received from [facility] [place] [facility] Occupational [facility] - Occupational Stress Questionnaire Feeling of Stress : Not at all Recent Concern: Stress - Stress Concern Present (04/02/2024) Received from [facility] [place] [facility] - Occupational Stress Questionnaire Feeling of Stress : Rather much Social Connections: Socially Isolated (06/12/2024) Received from [facility] Social Connection and Isolation Panel [NHANES] Frequency of Communication with Friends and Family: More than three times a week Frequency of Social Gatherings with Friends and Family: Twice a week Attends [employer] Services: Never Active Member of Clubs or Organizations: No Attends Club or Organization Meetings: Never Marital Status: Housing Stability: Low Risk (06/12/2024) Received from [facility] Housing Stability Vital Sign Unable to [...] And Vomiting, Nausea and vomiting and Rash Dagoberto Butts DO 09/27/24 1038 * Darshan Queen RN - 09/27/2024 10:25 AM EDT Patient reports that she went camping and has had back pain since. documented in this encounter Plan of Treatment Not on file documented as of this encounter Visit Diagnoses Diagnosis Acute exacerbation of chronic low back pain- Primary documented in this encounter Administered Medications Inactive Administered Medications - up to 3 most recent administrations Medication Order MAR Action Action Date Dose Rate Site morphine injection 4 mg 4 mg, Intramuscular, Once, On 09/27/24 at 1040, For 1 dose Given 09/27/2024 10:43 AM EDT 4 mg Left Deltoid predniSONE (DELTASONE) tablet 60 mg 60 mg, Oral, Once, On 09/27/24 at 1040, For 1 dose Given 09/27/2024 10:42 AM EDT 60 mg documented in this encounter Active and Recently Administered Medications Times are shown in EDT. Scheduled Medication Order 09/25/2024 09/26/2024 09/27/2024 morphine injection 4 mg (COMPLETED) 4 mg, Intramuscular, Once, On 09/27/24 at 1040, For 1 dose 1043 (Given - Provid er: Allison Woodward RN) predniSONE (DELTASONE) tablet 60 mg (COMPLETED) 60 mg, Oral, Once, On 09/27/24 at 1040, For 1 dose 1042 (Given - Provid er: Allison Woodward RN) documented in this encounter Care Teams Carton Liner Relationship Specialty Start Date End Date No, Physician [facility] PCP - General 12/29/23 documented as of this encounter
[2024-09-29 20:33] VITALS: BP 180/90; PULSE 101; TEMP 36.8; O2SAT 99; BMI 46.9
--- OUTSIDE RECORDS SUMMARY | 2024-09-29 20:56 | XMS_ITS | Encounter Summary ---
Author Organization [facility] Address [address] [place] [address] Phone Care Team Providers Care Meatman Name Role Phone Alejandro Fitzpatrick MD Primary Care Provider Kati Schwartz CMA Unavailable [phone] Generic Provider, No Assigned Pcp Primary Car e Provider Unavailable Alejandro Fitzpatrick MD Primary Care Provider Elva Lowe MA Unavailable [phone] Carole Huertas NATURAL RESOURCES FACULTY MEMBER-REGULATORY AFFAIRS PORTFOLIO LEADER Primary Care Prov ider Generic Provider, No Assigned Pcp Primary Car e Provider Unavailable Encounter Details Date Type Department Care Team (Late st Contact Info) Description 04/17/2024 Scanned Document [facility] Internal Medicine [address] [facility] [address] [place] [address] Alejandro Fitzpatrick MD [address] [facility] [address] [place] [address] Social History Tobacco Use Types Packs/Day Years [...] material from your doctor or pharmacy? Never 01/28/2024 [facility] Utilities Answer Date Recorded In the past 12 months has th e electric, gas, oil, or water company threatened to shut off services in your home? No 01/28/2024 Humiliation, Afraid, Rape, and Kick questionnair e Answer Date Recorded Within the last year, have y ou been afraid of your partner or ex-partner? No 01/28/2024 Within the last year, have y ou been humiliated or emotionally abused in other ways by your partner or ex-partner? No Within the last year, have y ou been kicked, hit, slapped, or otherwise physically hurt by your partner or ex-partner? No 01/28/2024 Within the last year, have y ou been raped or forced to have any kind of sexual activity by your partner or ex-partner? No 01/28/2024 Social Connection and Isolat ion Panel [NHANES] Answer Date Recorded In a typical week, how many times do you talk on the phone with family, friends, or neighbors? More than three times a week 01/28/2024 How often do you get togethe r with friends or relatives? Once a week 01/28/2024 How often do you attend chur or holiness services? Never 01/28/2024 Do you belong to any clubs o r organizations such as pentecostalism groups, unions, fraternal or athletic groups, or school groups? No 01/28/2024 How often do you attend meet ings of the clubs or organizations you belong to? Never 01/28/2024 Are you , , di vorced, , never , or living with a partner? 01/28/2024 AUDIT-C Answer Date Recorded Q1: How often do you have a drink containing alcohol? Never 01/28/2024 Q2: How many drinks containi ng alcohol do you have on a typical day when you are drinking? Patient does not drink Q3: How often do you have si x or more drinks on one occasion? Never 01/28/2024 Overall Financial Resource Strain (CARDIA) Answe r Date Recorded How hard is it for you to pa y for the very basics like food, housing, medical care, and heating? Not very hard 01/28/2024 PHQ-2 Answer Date Recorded Patient Health Questionnaire-2 Score 0 03/03/2024 [facility] - Occupational Stress Questionnaire Answer Date Recorded Do you feel stress - tense, restless, nervous, or anxious, or unable to sleep at night because your mind is troubled all the time - these days? Not at all 01/28/2024 Exercise Vital Sign Answer Date Recorde d On average, how many days pe r week do you engage in moderate to strenuous exercise (like a brisk walk)? 0 days 01/28/2024 On average, how many minutes do you engage in exercise at this level? 0 min 01/28/2024 Hunger Vital Sign Answer Date Recorded Within the past 12 months, y ou worried that your food would run out before you got the money to buy more. Never true 01/28/20 24 Within the past 12 months, t he food you bought just didn't last and you didn't have money to get more. Never true 01/28/2024 PRAPARE - Transportation Answer Date Re corded In the past 12 months, has l ack of transportation kept you from medical appointments or from getting medications? No 07/2023 In the past 12 months, has l ack of transportation kept you from meetings, work, or from getting things needed for daily living? No 01/28/2024 Housing Stability Vital Sign Answer Gerry e Recorded In the last 12 months, was t here a time when you were not able to pay the mortgage or rent on time? No 01/28/2024 In the past 12 months, how m any times have you moved where you were living? 0 01/28/2024 At any time in the past 12 m [address], were you homeless or living in a half-way (including now)? No 01/28/2024 Comments No Sex and Gender Information Value Date Recorded Sex Assigned at Female 08/21/2023 6:49 AM EDT Legal Sex Female 10:27 PM EDT Gender Identity Female 08/21/2023 6:49 AM EDT Sexual Orientation Not on file COVID-19 Exposure Response Date Recorded In the last 10 days, have maryjane u been in contact with someone who was confirmed or suspected to have Coronavirus/COVID-19? No / Unsure 03/30/2024 11:37 AM EST documented as of this encounter Functional Status * Are you deaf or do you have serious difficulty hearing? Answer Date of Assessment Author No 01/03/2024 3:34 PM EDT David Daly RN * Are you blind or do you have serious difficulty seeing, even when wearing glasses? Answer Date of Assessment Author No 01/03/2024 3:34 PM EDT David Daly RN * Do you have serious difficulty walking or climbing stairs? Answer Date of Assessment Author Yes 01/03/2024 3:34 PM EDT David Daly RN * Do you have serious difficulty dressing or bathing? Answer Date of Assessment Author No 01/03/2024 3:34 PM EDT David Daly RN * Because of a physical, mental, or emotional condition, do you have serious difficulty doing errandsalone such as visiting the doctor? Answer Date of Assessment Author No 01/03/2024 3:34 PM EDT David Daly RN documented as of this encounter Mental Status * Because of a physical, mental, or emotional condition, do you have serious difficulty concentrating, remembering, or making decisions? (5 years old or older) Answer Entry Date Author No 01/03/2024 3:34 PM EDT David Daly RN documented in this encounter Plan of Treatment Upcoming Encounters Date Type Department Care Team (Late st Contact Info) Description 10/20/2024 8:30 AM EDT Office Visit [facility] Neurosurgery [address] [phone] Jori Harman MD PhD [address] [facility] [address] [place] [address] documented as of this encounter Visit Diagnoses Not on filedocumented in this encounter Additional Health Concerns Assessment Noted Time A fall risk assessment has been complete d for the patient 03/30/2024 11:43 AM EST documented as of this encounter Care Teams Meatman Relationship Specialty Start Date End Date Alejandro Fitzpatrick MD [address] [address] PCP - General Internal Medicine 01/01/24 05/14/24 Generic Provider, [place] [address] PCP - General Longwall Foreman 05/15/24 05/25/24 Alejandro Fitzpatrick MD [address] [address] PCP - General Internal Medicine 05/26/24 06/22/24 Carole Huertas, NATURAL RESOURCES FACULTY MEMBER-REGULATORY AFFAIRS PORTFOLIO LEADER PCP - General Family Medicine 06/23/24 06/26/24 Generic Provider, [place] [address] PCP - General Longwall Foreman 06/27/24 Kati Schwartz CMA Nuclear Plant Construction WorkerSupervisor [employer] 05/04/24 05/18/24 Elva Lowe MA Nuclear Plant Construction WorkerSupervisor [employer] 06/15/24 07/16/24 documented as of this encounter
--- OUTSIDE RECORDS SUMMARY | 2024-09-29 20:56 | XMS_ITS | Data Portability ---
Author Organization [facility] Address [address] [place] [address] Assessment No assessment recorded. Plan of Treatment Reminders Order Date Submit Date Provider Last Modified By Organization Details Last Modified Time Details Appointments None recorded. Lab None recorded. Referral None recorded. Procedures None recorded. Surgeries None recorded. Imaging None recorded. Medication Orders ketorolac 60 mg/2 mL intramuscul ar solution 2022 023 [email or web address] Not available 16:19:28 Patient TargetsNo targets recorded. Patient Instructions Encounter Date Encounter Id Patient Instructions Last Modified By Organization Details Last Modified Time 12/03/2022 [id number] back care and preventing injuries: care instructions Not available 12/03/2022 16:11:23 getting back to normal after low back pain: care instructions [email or web address] Not available 12/03/2022 16:11:23 learning about relief for back pain Not available 12/03/2022 16:11:23 Follow up with PCP AUDI or go to the ED if worse. [email or web address] Not available 12/03/2022 16:09:25 This is a patien t with chronic low back pain. The clinical picture does not suggest sepsis, AAA, Cauda Equina or spinal abscess. She was given Toradol 60mg here IM. Not available 12/03/2022 16:10:36 Reason for Referral None Reported. Problems No Known Problems Medical Equipment None Reported. Allergies Allergen ID Allergen Name Allergen Category Reaction Reaction Severity Criticality Documentation Date Start Date Code Code System Note Provider Name and Address Organization Details Recorded Time 80930 hydrocodo ne Not available Not available Not available Not available 12/03/2022 5489 RxNorm [facility] 3 15:47:03 47173 Product containin g penicilli n (product) medicatio n Not available Not available Not available 12/03/2022 76589 8001 SNOMED [facility] 3 15:47:09 Medications Name Sig Start Date Stop Date Status Note LastModified by Organization Details LastModified Time ketorolac 60 mg/2 mL intramuscula r solution Inject 2 mL every day by intramuscul ar route for 1 day. 2022 active Not Available Not Available Not Avai lable Vitals Date Recorded Body height Heart rate Body temperature Body mass index (BMI) Body weight Oxygen saturation Oxygen saturation in Arterial blood by Pulse oximetry Systolic And Diastolic Provider Name and Address Organization Details Last Updated DateTime 160.02 cm 86 /min 98.5 [degF] 42.4 kg/m2 500844. 29 g 96 % 96 % 180/98 mm[Hg] [facility] 15:46:34 Social History Question Answer Notes LastModified by Organizat ion Details LastModified Time Tobacco Smoking Status Current Every Day Smoker [facility] 12/03/2022 15:47:28 What Is Your Level Of Caffeine Consumption? Moderate [email or web address] Information not available 12/03/2022 What Was The Date Of Your Most Recent Tobacco Screening? 12/03/2022 Information not available 12/03/2022 How Much Tobacco Do You Smoke? 0.5 PPD [email or web address] Information not available 12/03/2022 Sex: Unknown Functional Status Question Answer Note LastModified by Organizat ion Details LastModified Time Do you use any illicit or recreational drugs? No [email or web address] Information not available 12/03/2022 Do you or have you ever used any other forms of tobacco or nicotine? No [email or web address] Information not available 12/03/2022 What is your level of alcohol consumption? None Information not available 12/03/2022 Mental Status None recorded. Family History Nothing Reported. Medical History No medical history recorded. Gynecological HistoryNo gynecological history recorded. Obstetrics History GPAL:G 0 P 0 0 0 0 Past Encounters Encounter ID Performer Location Encounter Start Date Encounter Closed Date Diagnosis/Indication Diagnosis SNOMED-CT Code Diagnosis ICD10 Code Diagnosis Note [id number] Chuy LLANOS, PA-David [facility] [address] [place] [address] 12/03/2022 15:36:12 12/03/2022 16:29:12 Low back pain 801285270 M54.50 Health Concerns Section Related Observation LastModified by Organization Detai ls LastModified Time None Recorded Concern Status LastModified by Organization Details LastModified Time None Recorded Advance Directives Directive None Recorded Payers Insurance Date Sequence Insurance Name Policy Number Policy Rowell Covered Member ID Rowell Member ID Guarantor Name 12/03/2022 1 [facility] [facility] [place] 2022 (MEDICAID REPLACEMENT - HMO) Diana A Demarcus [id number] Diana A Demarcus 12/05/2022 1 [employer] [place] ON [place] AFTER 2022 (MEDICAID REPLACEMENT - HMO) Diana A Demarcus [id number] Diana A Demarcus Notes Date Note Type Note Provider Name and Address Organization Details Recorded Time 12/03/2022 text/html History of chron ic low back pain, complaining od same. No injury. Pain radiates down right leg which is normal. Declan zapata [facility] [address] [facility] 12/03/2022 16:25:43 OBGyn Episode No OBEpisode recorded.
--- OUTSIDE RECORDS SUMMARY | 2024-09-29 20:56 | XMS_ITS | Patient Health Record ---
Author Organization [facility] Address [address] [place] [address] Care Team Providers Care Shirt Cleaner Name Role Phone Estelle Veliz Primary Care Provider Allergies Allergen (clinical drug ingredient) Drug/Non Drug Allergy documented on EMR Reaction Allergy Type Onset Date Status Vicodin hives Drug Allergy Active Penicillin hives Drug Allergy Active Reason For Referral No Information Medications Medication SIG (Take, Route, Frequency, Duration) Notes Start Date End Date Status Ibuprofen 800 MG 1 tablet with food o r milk as needed Orally Three times a day 11/20/2021 Active Ondansetron HCl 8 MG 1 tablet as needed Orally every six to eight hours; Duration: 10 days 05/29/2022 Active Omeprazole 40 MG 1 capsule 30 minutes before morning meal Orally Once a day Active Cetirizine HCl 10 MG 1 tablet Orally Onc e a day; Duration: 30 day(s) 10/05/2022 Active Cyclobenzaprine HCl 10 MG 1 tablet Orall y three times a day (tid) Active Albuterol Sulfate HFA 108 (9 0 Base) MCG/ACT 1 puff as needed Inhalation every 4 hrs PRN Active Topiramate 100 MG 1 tablet Orally twic e a day; Duration: 30 day(s) 11/12/2022 Active Gabapentin 300 MG 1 capsule Orally thr ee times a day; Duration: 30 day(s) 11/12/2022 Active FLUoxetine HCl 60 mg TAKE 1 TABLET BY [facility] EVERY DAY; Duration: 30 Active Social History Tobacco Use: Social History Observation Description Date Details (start date - stop date) Current Smoker NA - NA Sex Assigned At : Social History Observation Description Sex Assigned At Female Tobacco Screen: Question Answer Notes Are you a: current smoker How often do you smoke cigarettes? every day How many cigarettes a day do you smoke? 11-20 How soon after you wake up do you smoke your fir st cigarette? within 5 min Are you interested in quitting? Not ready to fidel t Sexual Hx: Question Answer Notes Had sex in the last 12 months (vaginal, oral, or anal)? Yes Have you ever had an STD? No Alcohol Screening: Question Answer Notes Did you have a drink containing alcohol in the p ast year? No Points 0 Interpretation Negative Depression Screening (PHQ-9): Question Answer Notes Little interest or pleasure in doing things Marla ral days Feeling down, depressed, or hopeless Several day s Trouble falling or staying asleep, or sleeping t oo much Several days Feeling tired or having little energy Several da ys Poor appetite or overeating Several days Feeling bad about yourself-o r that you are a failure or have let yourself or your family down Several days Trouble concentrating on thi ngs, such as reading the newspaper or watching television Not at all Moving or speaking so slowly that other people could have noticed. Or the opposite being so fidgety or restless that you have been moving around a lot more than usual Not at all Thoughts that you would be b delia off , or of hurting yourself in some way Not at all Total Score 6 Intepretation Mild Depression Problems Problem Type SNOMED Code ICD Code Onset Dates Problem Status W/U Status Risk Notes Problem Opioid dependence (44907568) Opioid dependence, uncomplicated (F11.20) Active confirmed Problem Insomnia (329391584) Other insomnia (G47.09) Active confirmed Problem Anxiety (80110719) Anxiety (F41.9) Active confi rmed Problem Bipolar 1 disorder (751985925) Bipolar 1 disorder (F31.9) Active confirmed Problem Gastroesophageal reflux disease (disorder) (067986886) Chronic GERD (K21.9) Active confirmed Problem Migraine without aura, not refractory (898351414) Migraine without aura and without status migrainosus, not intractable (G43.009) Active confirmed Problem Sciatica (47922486) Right sided sciatica (M54.31) Active confirmed Problem Morbid obesity (694345301) Obesities, morbid (E66.01) Active confirmed Problem Sciatica (41110315) Bilateral lo w back pain with left-sided sciatica, unspecified chronicity (M54.42) Active confirmed Problem Generalized anxiety disorder (39392813) Generalized anxiety disorder (F41.1) Active confirmed Encounters Encounter Location Date Provider Diagnosis [facility] [address] [place] [address] 12/09/2023 Estelle Veliz Plan Of Treatment No Information Insurance Providers Payer Name Payer Address Payer Phone Subscriber Number Group Number Insured Name Patient Relationship to Insured Coverage Start Date Coverage End Date ANTH Primary [address] [place] [address] [id number] JERAD BROWN Self - patient is the insured 3 [employer] [place] Medicaid [address] [place] [address] [id number] JERAD BROWN Self - patient is the insured 3 [employer] [facility] [address] [place] [address] [phone] [id number] JERAD BROWN Self - patient is the insured 3 [facility] Medicaid [address] [place] [address] [id number] JERAD BROWN Self - patient is the insured 3 [employer] [facility] [address] [place] [address] [id number] JERAD BROWN Self - patient is the insured 3 Medical (General) History Medical History History ICD Code degenerative disk disease Migraine obesity Esophageal reflux Surgical History Surgery Date(Month/Year) tubes in ears total abdominal hysterectomy, has ovarie s Left foot surgery tonsillectomy gallbladder Hospitalization History Reason Date(Month/Year) See surgical
--- OUTSIDE RECORDS SUMMARY | 2024-09-29 20:56 | XMS_ITS | Encounter Summary ---
Author Organization [facility] Address [address] [place] [address] Phone Care Team Providers Care Green Prize Packer Name Role Phone Alejandro Fitzpatrick MD Primary Care Provider Kati Schwartz CMA Unavailable Generic Provider, No Assigned Pcp Primary Car e Provider Unavailable Alejandro Fitzpatrick MD Primary Care Provider Elva Lowe MA Unavailable [phone] Carole Huertas [employer]RE[employer] GARLAND MAKER HAND-WOMEN'S MINISTRY DIRECTOR Primary Care Prov ider Generic Provider, No Assigned Pcp Primary Car e Provider Unavailable Encounter Details Date Type Department Care Team (Late st Contact Info) Description 03/31/2024 Scanned Document [facility] Internal Medicine [address] [facility] [address] [place] [address] Alejandro Fitzpatrick MD [address] [facility] [address] [place] [address] Social History Tobacco Use Types Packs/Day Years [...] from your doctor or pharmacy? Never 01/28/2024 [facility] Utilities Answer Date Recorded [...] How often do you attend chur or mormonism services? Never 01/28/2024 Do you belong to any clubs o r organizations such as pentecostal groups, unions, fraternal or athletic groups, or [...] Recorded Patient Health Questionnaire-2 Score 0 03/03/2024 [facility] - Occupational Stress Questionnaire Answer Date Recorded [...] any time in the past 12 m [facility], were you homeless or living in a nursing home (including now)? No 01/28/2024 Comments No Sex [...] Description 10/20/2024 8:30 AM EDT Office Visit [facility] Neurosurgery [address] [phone] Jori Harman MD PhD [address] [facility] [address] [place] [address] documented as of this encounter Visit Diagnoses Not on filedocumented in this encounter Additional Health Concerns Assessment Noted Time A fall risk assessment has been complete d for the patient 03/30/2024 11:43 AM EST documented as of this encounter Care Teams Green Prize Packer Relationship Specialty Start Date End Date Alejandro Fitzpatrick MD [address] [address] PCP - General Internal Medicine 01/01/24 05/14/24 Generic Provider, [place] [address] PCP - General Relocation Director 05/15/24 05/25/24 Alejandro Fitzpatrick MD [address] [address] PCP - General Internal Medicine 05/26/24 06/22/24 Carole Huertas, WREATH [employer] GARLAND MAKER HAND-WOMEN'S MINISTRY DIRECTOR PCP - General Family Medicine 06/23/24 06/26/24 Generic Provider, [place] [address] PCP - General Relocation Director 06/27/24 Kati Schwartz CMA Insurance Administrative AssistantHousekeeping And Laundry Team Leader 05/04/24 05/18/24 Elva Lowe MA Insurance Administrative AssistantHousekeeping And Laundry Team Leader 06/15/24 07/16/24 documented as of this encounter
--- OUTSIDE RECORDS SUMMARY | 2024-09-29 20:57 | XMS_ITS | Encounter Summary ---
Author Organization [facility] Address [address] [place] [address] Phone Care Team Providers Care Dry Yard Worker Name Role Phone Alejandro Fitzpatrick MD Primary Care Provider Kati Schwartz CMA Unavailable Generic Provider, No Assigned Pcp Primary Car e Provider Unavailable Alejandro Fitzpatrick MD Primary Care Provider Elva Lowe MA Unavailable [phone] Carole Huertas SOIL TECHNICIAN-VIOLIN RESTORER Primary Care Prov ider Generic Provider, No Assigned Pcp Primary Car e Provider Unavailable Encounter Details Date Type Department Care Team (Late st Contact Info) Description 03/20/2024 Scanned Document [facility] Internal Medicine [address] [facility] [address] [place] [address] Alejandro Fitzpatrick MD [address] [facility] [address] [place] [address] Social History Tobacco Use Types Packs/Day Years [...] from your doctor or pharmacy? Never 01/28/2024 [facility] Utilities Answer Date Recorded In the [...] How often do you attend chur or quaker services? Never 01/28/2024 Do you belong to any clubs o r organizations such as sabianist groups, unions, fraternal or athletic groups, or [...] Recorded Patient Health Questionnaire-2 Score 0 03/03/2024 [facility] - Occupational Stress Questionnaire [...] any time in the past [address] [facility], were you homeless or living in a residential (including now)? No 01/28/2024 Comments No Sex [...] suspected to have Coronavirus/COVID-19? No / Unsure 03/19/2024 5:54 PM EST documented as of this encounter Functional [...] Description 10/20/2024 8:30 AM EDT Office Visit [facility] Neurosurgery [address] [phone] Jori Harman MD PhD [address] [facility] [address] [place] [address] documented as of this encounter Visit Diagnoses Not on filedocumented in this encounter Additional Health Concerns Assessment Noted Time A fall risk assessment has been complete d for the patient 03/03/2024 9:49 AM EST documented as of this encounter Care Teams Dry Yard Worker Relationship Specialty Start Date End Date Alejandro Fitzpatrick MD [address] [address] PCP - General Internal Medicine 01/01/24 05/14/24 Generic Provider, [place] [address] PCP - General Licensed Customs Broker 05/15/24 05/25/24 Alejandro Fitzpatrick MD [address] [address] PCP - General Internal Medicine 05/26/24 06/22/24 Carole Huertas, SOIL TECHNICIAN-VIOLIN RESTORER PCP - General Family Medicine 06/23/24 06/26/24 Generic Provider, No [place] [address] PCP - General Licensed Customs Broker 06/27/24 Kati Schwartz CMA Steam Clothes Press OperatorJunior High School Teacher 05/04/24 05/18/24 Elva Lowe MA Steam Clothes Press OperatorJunior High School Teacher 06/15/24 07/16/24 documented as of this encounter
--- OUTSIDE RECORDS SUMMARY | 2024-09-29 20:57 | XMS_ITS | Clinical Summary ---
Author Organization [facility] Address [address] [place] [address] Care Team Providers Care Business And Marketing Teacher Name Role Phone Unavailable Primary Care Provider Unavailabl e Allergies Active Allergy Reactions Criticality Noted Date Comments Hydrocodone 06/18/2024 Penicillins 06/18/2024 Acetaminophen 06/18/2024 Medications Cyclobenzaprine 10 MG tablet Take 1 tablet by mouth 3 times daily as needed for Muscle spasms. Active DULoxetine [address] Particles capsule DR Take 20 mg by mouth daily. Active hydrOXYzine HCl 25 MG tablet Take 1 tablet by mouth 3 times daily as needed for Anxiety. Active Ibuprofen 400 MG tablet Take 2 tablets by mouth every 6 hours as needed for Mild Pain. Active Active Problems Patient Care Coordination No te Formatting of this note migh t be different from the original. Patient has no PCP. No additional problems on file Encounters Date Type Department Care Team Description 07/08/2024 4:42 PM EDT - 07/08/2024 5:04 PM EDT Emergency [facility] Emergency Department [address] [place] [phone] Nickolas Salas MD Discharge Disposition: Home or Self Care 07/08/2024 Travel from Last 3 Months Social History Tobacco Use Types Packs/Day Years Used Date Smoking Tobacco: Every Day Cigarettes Smokeless Tobacco: Never Tobacco Cessation:Ready to Q uit: Not Asked; Counseling Given: Not Answered Alcohol Use Standard Drinks/Week Comments Never 0 (1 standard drink = 0.6 oz pur e alcohol) Comments No Sex and Gender Information Value Date Recorded Sex Assigned at Not on file Legal Sex Female 5:20 PM EDT Gender Identity Not on file Sexual Orientation Not on file Last Filed Vital Signs Vital Sign Reading Time Taken Comments Blood Pressure 170/94 07/08/2024 4:40 PM EDT Pulse 96 07/08/2024 4:40 PM EDT Temperature 37.1 C (98.8 F) 07/08/2024 4:40 PM EDT Respiratory Rate 18 07/08/2024 4:40 PM EDT Oxygen Saturation 96% 07/08/2024 4:40 PM EDT Inhaled Oxygen Concentration - - Weight 117.9 kg (260 lb) 07/08/2024 4:40 PM EDT Height 160 cm (5' 3 ) 07/08/2024 4:40 PM EDT Body Mass Index 46.06 07/08/2024 4:40 PM EDT Plan of Treatment Health Maintenance Due Date Last Done Comments HEPATITIS C VIRUS SCREENING 1977 TETANUS 1977 HIV SCREENING DISCUSSION 1992 PNEUMOCOCCAL VACCINE SERIES (1 of 2 - PCV) 1996 TDAP (ADULT) 1996 CERVICAL CANCER SCREENING DISCUSSION 1998 LIPID SCREENING 2017 MAMMOGRAM SCREENING DISCUSSION 2017 COLORECTAL CANCER SCREENING DISCUSSION 2022 HEP B VACCINE (2 of 3 - 19+ 3-dose series) 05/24/2023 04/26/2023 COVID-19 VACCINE (2 - season) 11/24/202301/2021 INFLUENZA VACCINE (Season Ended) 2024 Insurance [facility]
--- OUTSIDE RECORDS SUMMARY | 2024-09-29 20:57 | XMS_ITS | Encounter Summary ---
Author Organization [facility] Address [address] [place] [address] Care Team Providers Care Turf Keeper Name Role Phone Unavailable Primary Care Provider Unavailabl e Source Comments In the event this information is protected by the Federal Confidentiality of Alcohol and Drug AbusePatient Records regulations: The Federal rules restrict any use of the information to criminally investigate or prosecute any alcohol or drug abuse patient.[facility] Encounter Details Date Type Department Care Team (Late st Contact Info) Description 04/02/2024 Patient [facility] Emergency Department [address] [phone] Provider, [facility] Follow Up Appointment - Primary Care Social History Tobacco Use Types Packs/Day Years Used Date Smoking Tobacco: Never Assessed [facility] Utilities Answer Date Recorded In the past 12 months has th [employer] electric, gas, oil, or water company threatened to shut off services in your home? No 04/02/2024 Social Connection and Isolat ion Panel [NHANES] Answer Date Recorded In a typical week, how many times do you talk on the phone with family, friends, or neighbors? More than three times a week 04/02/2024 How often do you get togethe r with friends or relatives? Once a week 04/02/2024 How often do you attend chur ch or confucianist services? Never 04/02/2024 Do you belong to any clubs o r organizations such as religion groups, unions, fraternal or athletic groups, or school groups? No 04/02/2024 How often do you attend meet ings of the clubs or organizations you belong to? Never 04/02/2024 Are you , , di vorced, , never , or living with a partner? 04/02/2024 AUDIT-C Answer Date Recorded Q1: How often do you have a drink containing alcohol? Never 04/02/2024 Q2: How many drinks containi ng alcohol do you have on a typical day when you are drinking? Patient does not drink Q3: How often do you have si x or more drinks on one occasion? Never 04/02/2024 Overall Financial Resource Strain (CARDIA) Answe r Date Recorded How hard is it for you to pa y for the very basics like food, housing, medical care, and heating? Not hard at all 04/02/2024 PHQ-2 Answer Date Recorded PHQ-2 score 2 04/02/2024 [facility] - Occupational Stress Questionnaire Answer Date Recorded Do you feel stress - tense, restless, nervous, or anxious, or unable to sleep at night because your mind is troubled all the time - these days? Rather much 04/02/2024 Exercise Vital Sign Answer Date Recorde d On average, how many days pe r week do you engage in moderate to strenuous exercise (like a brisk walk)? 0 days 04/02/2024 On average, how many minutes do you engage in exercise at this level? 0 min 04/02/2024 Hunger Vital Sign Answer Date Recorded Within the past 12 months, y ou worried that your food would run out before you got the money to buy more. Never true 04/02/19 25 Within the past 12 months, t he food you bought just didn't last and you didn't have money to get more. Never true 04/02/2024 [facility] - Transportation Answer Date Re corded In the past 12 months, has l ack of transportation kept you from medical appointments or from getting medications? No 11/2024 In the past 12 months, has l ack of transportation kept you from meetings, work, or from getting things needed for daily living? No 04/02/2024 Housing Stability Vital Sign Answer Gerry e Recorded In the last 12 months, was t here a time when you were not able to pay the mortgage or rent on time? No 04/02/2024 Number of Times Moved in the Last Year Not on fi le 04/02/2024 Homeless in the Last Year Not on file 2024 Area Deprivation Index Answer Date Rodo rded National Score (1-100), lower number is lower ri sk 62 03/30/2024 State Score (1-10), lower number is lower risk 4 03/30/2024 Data from: https://www.neighborhoodatlas.medicine.[facility].edu/. Last address used for calculation [address] 03/30/2024 Comments Unknown Sex and Gender Information Value Date Recorded Sex Assigned at Female 03/29/2024 6:23 PM EST Legal Sex Female 9:59 AM EST Gender Identity Female 03/29/2024 6:23 PM EST Sexual Orientation Not on file documented as of this encounter Functional Status * Audit-C Score Answer Date of Assessment Author 0 04/02/2024 1:43 PM EST Reji Williamson * Q1: How often do you have a drink containing alcohol? Answer Date of Assessment Author Never 04/02/2024 1:43 PM EST Reji Williamson * Q2: How many drinks containing alcohol do you have on a typical day when you are drinking? Answer Date of Assessment Author Patient does not drink 04/02/2024 1:43 PM EST erRylee * Q3: How often do you have six or more drinks on one occasion? Answer Date of Assessment Author Never 04/02/2024 1:43 PM EST Reji Williamson documented as of this encounter Plan of Treatment Not on file documented as of this encounter Visit Diagnoses Not on filedocumented in this encounter
--- OUTSIDE RECORDS SUMMARY | 2024-09-29 20:57 | XMS_ITS | Encounter Summary ---
Author Organization [facility] Address [address] [place] [address] Phone Care Team Providers Care Carbon Printer Name Role Phone Alejandro Fitzpatrick MD Primary Care Provider Kati Schwartz CMA Unavailable Generic Provider, No Assigned Pcp Primary Car e Provider Unavailable Alejandro Fitzpatrick MD Primary Care Provider Elva Lowe MA Unavailable [phone] Carole Huertas BIOCHEMISTRY PROFESSOR-SPARE FIXER Primary Care Prov ider Generic Provider, No Assigned Pcp Primary Car e Provider Unavailable Encounter Details Date Type Department Care Team (Late st Contact Info) Description 03/20/[address] [facility] Internal Medicine [address] [facility] [address] [place] [address] Alejandro Fitzaptrick MD [address] [facility] [address] [place] [address] Social History Tobacco Use Types Packs/Day Years [...] from your doctor or pharmacy? Never 01/28/2024 [facility] Utilities Answer Date Recorded In [...] How often do you attend chur or muslim services? Never 01/28/2024 Do you belong to any clubs o r organizations such as presybeterian groups, unions, fraternal or athletic groups, or [...] Recorded Patient Health Questionnaire-2 Score 0 03/03/2024 [facility] - Occupational Stress Questionnaire Answer Date [...] any time in the past 12 m [facility], were you homeless or living in a assisted (including now)? No 01/28/2024 Comments No Sex [...] Description 10/20/2024 8:30 AM EDT Office Visit [facility] Neurosurgery [address] [phone] Jori Harman MD PhD [address] [facility] [address] [place] [address] documented as of this encounter Visit Diagnoses Not on filedocumented in this encounter Additional Health Concerns Assessment Noted Time A fall risk assessment has been complete d for the patient 03/03/2024 9:49 AM EST documented as of this encounter Care Teams Carbon Printer Relationship Specialty Start Date End Date Alejandro Fitzpatrick MD [address] [address] PCP - General Internal Medicine 01/01/24 05/14/24 Generic Provider, [place] [address] PCP - General Client Solutions Manager 05/15/24 05/25/24 Alejandro Fitzpatrick MD [address] [address] PCP - General Internal Medicine 05/26/24 06/22/24 Carole Huertas, BIOCHEMISTRY PROFESSOR-SPARE FIXER PCP - General Family Medicine 06/23/24 06/26/24 Generic Provider, [place] [address] PCP - General Client Solutions Manager 06/27/24 Kati Schwartz CMA StoperUser Experience Lead 05/04/24 05/18/24 Elva Lowe MA StoperUser Experience Lead 06/15/24 07/16/24 documented as of this encounter
--- OUTSIDE RECORDS SUMMARY | 2024-09-29 20:57 | XMS_ITS | Encounter Summary ---
Author Organization [facility] Address [address] [place] [address] Care Team Providers Care Terminologist Name Role Phone Carole Kent SILVER CHASER - SACK SEWER MACHINE Primary Care Provi evelyn Encounter Details Date Type Department Care Team (Latest Contact Info) Description 09/16/2024 Travel Social History Tobacco Use Types Packs/Day Years [...] AM EDT documented as of this encounter Functional Status documented as of this encounter Plan of Treatment Upcoming Encounters Date Type Department Care Team (Latest Contact Info) Description 10/05/2024 10:15 AM EDT Office Visit [facility] Pain Management [address] [place] [phone] Michel Sullivan DO [address] [place] [address] Return in about 4 weeks (around 10/05/2024) for Medication refill. Consider ITP injection based on discussion with Dr. Acosta . 10/08/2024 9:00 AM EDT Hospital Encounter [facility] [address] [place] [address] Michel Sullivan DO [address] [place] [address] 10/08/2024 9:00 AM EDT - 10/08/2024 10:[address] [facility] OR [address] [place] [address] Michel Sullivan DO [address] [place] [address] INTRATHECAL PAIN PUMP TRIAL / 1.5 HOURS / 1 C-ARM / DINORA SITE / Intrathecal Pump Trial. 0.1mg/mL of morphine and 0.1mg/mL of Bupivacaine in a 5mL syringe. 10/13/2024 9:15 AM EDT Office Visit [facility] Pain Management [address] [place] [phone] Michel Sullivan DO [address] [place] [address] 10/08/24 PAIN PUMP TRIAL. 01/01/2025 1:45 PM EDT Office Visit [facility] [address] [address] Declan Batista MD [address] [place] [address] [place] [address] Video link sent Scheduled Procedures Name Priority Associated Diagnoses Date/Ti me NERVE BLOCK (DEFINE) Failed back syndrome 10/08/2024 9:00 AM EDT documented as of this encounter Visit Diagnoses Not on filedocumented in this encounter Care Teams Terminologist Relationship Specialty Start Date End Date Carole eKnt APRN - MARINA [address] [place] [address] [address] [place] [address] PCP - General Nurse Practitioner 06/25/24 documented as of this encounter
--- OUTSIDE RECORDS SUMMARY | 2024-09-29 20:57 | XMS_ITS ---
Author Organization [facility] Address [address] [place] [address] Phone Care Team Providers Care Wax Engraver Name Role Phone Generic Provider, No Assigned Pcp MD Primary Car e Provider Unavailable Hepatitis C Core Status:Enrolled (Active) Start date:04/30/2023 Enrollment date:05/01/2023 Enrollment reason:Identified from a specialty prescription Current support & services provided:Clinical Management, Refill Management, Benefits and PA Management Linked medications:glecaprevir/pibrentasvir () Continued Care and Services Coordination
--- OUTSIDE RECORDS SUMMARY | 2024-09-29 20:57 | XMS_ITS | Encounter Summary ---
Author Organization [facility] Elvia Saad [facility] Address [address] [place] [address] Care Team Providers Care Eyeglass Lens Cutter Name Role Phone Carole Kent COVER OPERATOR - FEEDER/FOLDER Primary Care Provi evelyn Encounter Details Date Type Department Care Team (Late st Contact Info) Description 09/14/2024 Prep for Procedure [facility] Pain Management [address] [facility] [address] [place] [address] Michel Sullivan, DO [address] [place], [place] [phone] Social History Tobacco Use Types Packs/Day Years [...] Description 10/05/2024 10:15 AM EDT Office Visit [facility] Pain Management [address] [place] [address] Michel Sullivan, [address] [place] [address] Return in about 4 weeks (around 10/05/2024) for Medication refill. Consider ITP injection based on discussion with Dr. Acosta . 10/08/2024 9:00 AM EDT Hospital Encounter [facility] OR [address] [place] [address] Michel Sullivan, [address] [place] [address] 10/08/2024 9:00 AM EDT - 10/08/2024 10:[address] [facility] OR [address] [place] [address] Michel Sullivan DO [address] [place] [address] INTRATHECAL PAIN PUMP TRIAL / 1.5 HOURS / 1 C-ARM / DINORA SITE / Intrathecal Pump Trial. 0.1mg/mL of morphine and 0.1mg/mL of Bupivacaine in a 5mL syringe. 10/13/2024 9:15 AM EDT Office Visit [facility] Pain Management [address] [place] [phone] Michel Sullivan DO [address] [place] [address] 10/08/24 PAIN PUMP TRIAL. 01/01/2025 1:45 PM EDT Office Visit [facility] [address] [facility] [address] [place] [address] Declan Batista MD [address] [facility] [address] [place] [address] Video link sent Scheduled Procedures Name Priority Associated Diagnoses Date/Ti me NERVE BLOCK (DEFINE) Failed back syndrome 10/08/2024 9:00 AM EDT documented as of this encounter Visit Diagnoses Not on filedocumented in this encounter Care Teams Eyeglass Lens Cutter Relationship Specialty Start Date End Date Carole Kent APRN - FEEDER/FOLDER [address] [facility] [address] [place] [address] PCP - General Nurse Practitioner 06/25/24 documented as of this encounter
--- OUTSIDE RECORDS SUMMARY | 2024-09-29 20:57 | XMS_ITS | Clinical Summary ---
Author Organization [facility] Address [address] [place] [id number] Care Team Providers Care Child Psychometrist Name Role Phone Unavailable Primary Care Provider Unavailabl e Allergies Active Allergy Reactions Criticality Noted Date Comments Acetaminophen Other: See Comments 12/29/2023 Liver failure. Gabapentin Other: See Comments 03/29/2024 Leg swelling Hydrocodone Hives,Rash Low 01/30/2014 Pregabalin Unknown 03/29/2024 Medications diclofenac (VOLTAREN ARTHRITIS PAIN) 1 % topical gel Apply 4 g to affected area four times daily. 450 g 2 03/30/2024 Active Social History Tobacco Use Types Packs/Day Years Used Date Smoking Tobacco: Never Assessed [facility] Utilities Answer Date Recorded In the past 12 months has [employer], gas, oil, or water company threatened to [...] often do you attend chur ch or rastafari services? Never 04/02/2024 Do you belong to any clubs o r organizations such as nondenominational groups, unions, fraternal or athletic groups, or [...] PHQ-2 Answer Date Recorded PHQ-2 score 2 04/17/2024 [facility] - Occupational Stress Questionnaire Answer Date [...] is lower risk 4 03/30/2024 Data from: https://www.neighborhoodatlas.medicine.[facility].edu/. Last address used for calculation [address] 03/30/2024 Comments Unknown Sex and Gender Information Value Date Recorded Sex Assigned at Female 03/29/2024 6:23 PM EST Legal Sex Female 9:59 AM EST Gender Identity Female 03/29/2024 6:23 PM EST Sexual Orientation Not on file Last Filed Vital Signs Vital Sign Reading Time Taken Comments Blood Pressure 159/72 03/30/2024 2:30 AM EST Pulse 74 03/30/2024 2:30 AM EST Temperature 37.1 C (98.7 F) 03/29/2024 5:00 PM EST Respiratory Rate 18 03/30/2024 1:57 AM EST Oxygen Saturation 95% 03/30/2024 2:00 AM EST Inhaled Oxygen Concentration - - Weight - - Height - - Body Mass Index - - Plan of Treatment Health Maintenance Due Date Last Done Comments Anxiety Screening 1995 Depression Screening 1995 HIV Screening 1995 DTaP,Tdap,Td Vaccine (1 - Tdap) 1996 Cervical Cancer Screening [address] Colonography 2022 Cologuard (FIT-DNA) 2022 Colonoscopy 2022 Colorectal Cancer Screening 2022 Fecal Occult Blood 2022 Lipid Screening 2022 Sigmoidoscopy 2022 Hepatitis B Vaccine (2 of 3 - 19+ 3-dose series) 05/24/2023 04/26/2023 Covid-19 Vaccine (2 - 2023-2 5 season) 2023 07/03/2020 Influenza Vaccine (#1) 2024 Diabetes Screening 05/15/2027 05/15/2024, 0 05/14/2024, 05/14/2024, Additional history exists Hepatitis C Screening Completed 09/16/2023 , 02/13/2023, 02/13/2023 Procedures Procedure Name Priority Date/Time Associated Diagnosis Comments BASIC METABOLIC PANEL STAT 03/29/2024 6:39 PM EST from Last 3 Months or Most Recently Relevant to Health Maintenance Results * (ABNORMAL) BASIC METABOLIC PANEL (03/29/2024 6:39 PM EST) Glucose 110(H) 74 - 99 mg/dL 03/29/2024 7:10 PM EST [facility] Comment: The [place] Diabetes [employer] (ADA) provides guidance for cutoff values for fasting glucose and random glucose. The ADA defines fasting as no caloric intake for at least 8 hours. Fasting plasma glucose results between 100 to 125 mg/dL indicate increased risk for diabetes (prediabetes). Fasting plasma glucose results greater than or equal to 126 mg/dL meet the criteria for diagnosis of diabetes. In the absence of unequivocal hyperglycemia, results should be confirmed by repeat testing. In a patient with classic symptoms of hyperglycemia or hyperglycemic crisis, random plasma glucose results greater than or equal to 200 mg/dL meet the criteria for diagnosis of diabetes. Reference: Standards of Medical Care in Diabetes 2016, [place] [employer]. Diabetes Care. 2016.39(Suppl 1). BUN 15 7 - 21 mg/dL 03/29/2024 7:10 PM [facility] Creatinine 0.70 0.58 - 0.96 mg/dL 03/29/2024 7:10 PM [facility] Sodium 141 136 - 144 mmol/L 03/29/2024 7:10 PM [facility] Potassium 3.9 3.7 - 5.1 mmol/L 03/29/2024 7:10 PM [facility] Chloride 107 98 - 107 mmol/L 03/29/2024 7:10 PM [facility] CO2 21(L) 22 - 30 mmol/L 03/29/2024 7:10 PM [facility] Anion Gap 13 8 - 15 mmol/L 03/29/2024 7:10 PM [facility] Calcium, Total 8.6 8.5 - 10.2 mg/dL 03/29/2024 7:10 PM EST [facility] Estimated Glomerular Filtration Rate 108 >=60 mL/min/1.7 3m 03/29/2024 7:10 PM EST [facility] Comment:Estimated Glomerular Filtration Rate (eGFR) is calculated using the 2020 CKD-EPI creatinine equation. This equation utilizes serum creatinine, sex, and age as parameters. The creatinine assay has traceable calibration to isotope dilution- mass spectrometry. Refer to KDIGO guidelines for clinical interpretation. In patients with unstable renal function, e.g. those with acute kidney injury, the eGFR may not accurately reflect actual GFR. Blood BLOOD SPECIMEN / Unknown Venipuncture / Unknown 03/29/2024 6:39 PM EST 03/29/2024 6:47 PM EST us Dalton Duron MD LABORATORY Final Result [facility] [address] [place] [address], from Last 3 Months or Most Recently Relevant to Health Maintenance Insurance [facility]
--- OUTSIDE RECORDS SUMMARY | 2024-09-29 20:57 | XMS_ITS | Clinical Summary ---
Author Organization [facility] Address [address] [place] [address] Care Team Providers Care Natural Developer Name Role Phone YueCarole cooper KETTLEMAN - OIL AND GAS SUPERINTENDENT Primary Care Provi evelyn Allergies Active Allergy Reactions Criticality Noted Date Comments Gabapentin Headaches,Other (See Comments) 12/08 Leg swelling Hydrocodone Rash Low 01/30/2014 Nabumetone Nausea And Vomiting,Rash Low 01/15/2023 Penicillins 09/10/2023 Pregabalin Swelling,Other (See Comments) 2023 BLE Medications omeprazole (PRILOSEC) 20 MG capsule Take 1 capsule by mouth 2 times daily (with meals) Active cyclobenzaprine (FLEXERIL) 10 MG tablet Take 1 tablet by mouth 3 times daily as needed 4 Active DULoxetine (CYMBALTA) 60 MG extended release capsule Take by mouth daily 5 Active albuterol sulfate (PROAIR RESPICLICK) 108 (90 Base) MCG/ACT aerosol powder inhalation Inhale 2 puffs into the lungs every 4 hours as needed 5 Active hydrOXYzine HCl (ATARAX) 25 MG tablet Take 1 tablet by mouth 3 times daily as needed Active Melatonin 10 MG TABS Take 10 mg by mouth nightly as needed 5 Active ondansetron (ZOFRAN) 4 MG tablet Take 1 tablet by mouth every 8 hours as needed for Nausea or Vomiting Active polyethylene glycol (GLYCOLAX) 17 g packet Take 1 packet by mouth daily 5 Active SUMAtriptan (IMITREX) 50 MG tablet Take 1 tablet by mouth 5 Active topiramate (TOPAMAX) 25 MG tablet Take 1 tablet by mouth 2 times daily 5 Active naloxone 4 MG/0.1ML LIQD nasal spray 1 spray by Nasal route as needed for Opioid Reversal 2 each 1 5 Active phentermine (ADIPEX-P) 37.5 MG tablet Take 1 tablet by mouth daily. 5 Active ibuprofen (ADVIL;MOTRIN) 600 MG tablet Take 1 tablet by mouth 3 times daily as needed for Pain 30 tablet 5 Active acetaminophen (TYLENOL) 500 MG tablet Take 1 tablet by mouth 4 times daily as needed for Pain 120 tablet 5 10/07/19 25 Active oxyCODONE (ROXICODONE) 5 MG immediate release tabletIndicatio ns:Failed back syndrome Take 1 tablet by mouth 3 times daily as needed for Pain for up to 30 days. Max Daily Amount: 15 mg 90 tablet 5 10/08/19 25 Active methylPREDNISol one (MEDROL, LINDA,) 4 MG tablet Take by mouth. 1 kit 5 09/07/19 25 Discontinue d(LIST CLEANUP) predniSONE (DELTASONE) 50 MG tablet Take 1 tablet by mouth daily for 5 days 5 tablet 5 09/12/19 25 methocarbamol (ROBAXIN) 750 MG tablet Take 1 tablet by mouth 4 times daily for 10 days 40 tablet 5 09/17/19 25 Active Problems Problem Noted Date Diagnosed Date Failed back syndrome 07/14/2024 Overview (09/07/2024): Chronic illness with a severe exacerbation and/or progression which affects ADL's. Pain has been present for multiple years and is expected to last at least a year. Patient is unable to sleep, transfer, nor ambulate. Goals of care include pain relief >50% and ability to perform ADLs with less pain. 49-year-old female with history of failed back syndrome status post L4-L5 MIS hemilaminotomy, partial medial facetectomy, and microdiscectomy in 2024 who presents with chronic low back pain with occasional radiation to both lower extremities. Pain is extremely debilitating and affects ADLs. Pain score 6 or greater with activity. Pain limits mobility and functionality. Upon assessment, pain originates in the lower lumbar spine and radiates down the posterior lateral aspect of both lower extremities with termination in the posterior thighs. All activity exacerbates pain. Regarding previous treatments, she has had multiple rounds of injections in the past that have become futile. She underwent a successful spinal cord stimulation trial as well as implant. Unfortunately, she developed a blood clot and infection which resulted in removal of the spinal cord stimulator device. She was then hospitalized and then put on antibiotics. Regarding medication management, she has been on Tylenol, NSAIDs, muscle relaxants, neuropathic medications, and opioids. She has failed most regimens of medication management. She is only found some success with opioid therapy. Given her complex medical history, I discussed with her medication management and potential intrathecal pump placement. Patient is interested in learning more about intrathecal drug management. Information provided to patient today. She is seeing a neurosurgeon later on this month for second opinion. I will have her follow-up with me after that visit to discuss potential we moving forward with intrathecal pump management versus other potential options. In the meantime, I will take over her narcotic medication management. I advised her that I would not increase the dose that we start today. Patient understands and agrees. I am the primary provider for this patient's complex chronic pain condition that requires ongoing medical management. The nature of this condition and indicated treatment requires a longitudinal relationship and continual monitoring over time for appropriate safety and response. Shared goals were created and discussed including a reduction in pain intensity and improvement in ability to complete activities of daily living. Assessment & Plan (09/07/2024 1:13 PM EDT): -Oxycodone 5mg TID prn refilled. PDMP reviewed and appropriate -holding off on ITP injection at this time. Needs to see neurosurgery. Can discuss options if needed after she sees Dr. Acosta -will follow up for medication management -Discussed the principles of opioid tolerance as well as the concerns regarding opioid diversion, misuse, and abuse. Discussed the risks of respiratory depression and while on pain medications, especially when combined with other sedative substances. Discussed the elevated risks of excessive sedation while on pain medications. Advised her against driving or operating heavy machinery or performing any activities where she may harm herself or others while on pain medications. Particular caution was emphasized especially during dose adjustments and medication changes. Discussed the elevated risks of respiratory depression and while on opioid medications, especially when combined with other sedative substances. Discussed side effects of opioids including, but not limited to, itching, constipation, nausea, and vomiting. The patient does not demonstrate any overt signs of alcohol or drug abuse, and there are no potential contraindications to the use of controlled substances. The relevant previous medical records were reviewed. The patient continues to make good-shania efforts to reduce and eliminate use of opioids through our comprehensive multidisciplinary pain treatment program. Assessment & Plan (08/03/2024 11:02 AM EDT): -changed Oxycodone 10mg to 5mg q8h prn -ITP trial ordered -waiting for psych evaluation -Discussed the principles of opioid tolerance as well as the concerns regarding opioid diversion, misuse, and abuse. Discussed the risks of respiratory depression and while on pain medications, especially when combined with other sedative substances. Discussed the elevated risks of excessive sedation while on pain medications. Advised her against driving or operating heavy machinery or performing any activities where she may harm herself or others while on pain medications. Particular caution was emphasized especially during dose adjustments and medication changes. Discussed the elevated risks of respiratory depression and while on opioid medications, especially when combined with other sedative substances. Discussed side effects of opioids including, but not limited to, itching, constipation, nausea, and vomiting. The patient does not demonstrate any overt signs of alcohol or drug abuse, and there are no potential contraindications to the use of controlled substances. The relevant previous medical records were reviewed. The patient continues to make good-shania efforts to reduce and eliminate use of opioids through our comprehensive multidisciplinary pain treatment program. Assessment & Plan (07/15/2024 9:17 AM EDT): Chronic illness with a severe exacerbation and/or progression which affects ADL's. Pain has been present for multiple years and is expected to last at least a year. Patient is unable to sleep, transfer, nor ambulate. Goals of care include pain relief >50% and ability to perform ADLs with less pain. 49-year-old female with history of failed back syndrome status post L4-L5 MIS hemilaminotomy, partial medial facetectomy, and microdiscectomy in 2023 who presents with chronic low back pain with occasional radiation to both lower extremities. Pain is extremely debilitating and affects ADLs. Pain score 6 or greater with activity. Pain limits mobility and functionality. Upon assessment, pain originates in the lower lumbar spine and radiates down the posterior lateral aspect of both lower extremities with termination in the posterior thighs. All activity exacerbates pain. Regarding previous treatments, she has had multiple rounds of injections in the past that have become futile. She underwent a successful spinal cord stimulation trial as well as implant. Unfortunately, she developed a blood clot and infection which resulted in removal of the spinal cord stimulator device. She was then hospitalized and then put on antibiotics. Regarding medication management, she has been on Tylenol, NSAIDs, muscle relaxants, neuropathic medications, and opioids. She has failed most regimens of medication management. She is only found some success with opioid therapy. Given her complex medical history, I discussed with her medication management and potential intrathecal pump placement. Patient is interested in learning more about intrathecal drug management. Information provided to patient today. She is seeing a neurosurgeon later on this month for second opinion. I will have her follow-up with me after that visit to discuss potential we moving forward with intrathecal pump management versus other potential options. In the meantime, I will take over her narcotic medication management. I advised her that I would not increase the dose that we start today. Patient understands and agrees. -Begin Oxycodone 10 mg 3 times daily as needed - Psych evaluation ordered for potential intrathecal pump trial -After careful consideration, treatment with opioid medications was recommended. The patient has severe pain that has not been responsive to non-opioid analgesics. Discussed the risks, side effects, and symptoms that would warrant urgent or emergent physician evaluation. Discussed the principles of opioid tolerance as well as the concerns regarding opioid diversion, misuse, and abuse. Discussed the elevated risks of excessive sedation while on pain medications. Advised her against driving or operating heavy machinery or performing any activities where she may harm herself or others while on pain medications. Particular caution was emphasized especially during dose adjustments and medication changes. Discussed the elevated risks of respiratory depression and while on opioid medications, especially when combined with other sedative substances. Discussed side effects of opioids including, but not limited to, itching, constipation, nausea, and vomiting. The patient does not demonstrate any overt signs of alcohol or drug abuse, and there are no potential contraindications to the use of controlled substances. The relevant previous medical records were reviewed. The patient displays understanding and will attempt to make good-shania efforts to reduce and eliminate use of opioids through our comprehensive multidisciplinary pain treatment program. Discussed the clinic's controlled substance agreement, Narcotic Drug Policy (NDP), in great detail. All questions were answered. Pt expressed understanding and explicit agreement. She will sign this form today. Will obtain a urine drug screen today. Pt denies any illicit substances. Pt has not used any controlled substances within the last week. OARRS will be obtained. Naloxone provided. Lumbar disc herniation with radiculopathy 2023 Chronic back pain greater than 3 months duration 07/18/2023 Current smoker 01/20/2023 Overview (08/20/2024): Added secondary to documentation in Social History. Abdominal pain 01/31/2014 Encounters Date Type Department Care Team Description 09/16/2024 6:13 PM EDT - 09/16/2024 7:02 PM EDT Emergency [facility] Emergency Department [address] [place] [id number] Chronic left-sided low back pain with left-sided sciatica (Primary Dx) Discharge Disposition: Home or Self Care 09/16/2024 Travel 09/14/2024 4:54 PM EDT - 09/14/2024 5:57 PM EDT Emergency [facility] Emergency Department [address] [place] [phone] Acute exacerbation of chronic low back pain (Primary Dx); H/O degenerative disc disease Discharge Disposition: Home or Self Care 09/14/2024 Prep for [facility] Management [address] [place] [address] Michel Sullivan DO 09/13/2024 7:29 PM EDT - 09/13/2024 9:02 PM EDT Emergency [facility] Emergency Department [address] [place] [phone] Mik Marino MD Chronic left-sided low back pain with left-sided sciatica (Primary Dx) Discharge Disposition: Home or Self Care 09/13/2024 Travel 09/10/2024 1:00 PM EDT Initial consult [facility] Neurosurgery, a department of [facility] [address] [address] Jean-Paul Finnegan PA-C Spinal stenosis of lumbar region with neurogenic claudication (Primary Dx); Class 3 severe obesity with body mass index (BMI) of 45.0 to 49.9 in adult, unspecified obesity type, unspecified whether serious comorbidity present (HCC) 09/07/2024 11:15 AM EDT Office Visit [facility] [address] [place] [address] Michel Sullivan, DO Failed back syndrome (Primary Dx) 09/05/2024 11:12 PM EDT - 09/06/2024 12:59 AM EDT Emergency [facility] Emergency Department [address] [place] [phone] Acute exacerbation of chronic low back pain (Primary Dx); Sciatica of left side Discharge Disposition: Home or Self Care 09/05/2024 Travel 09/01/2024 2:56 PM EDT - 09/01/2024 4:11 PM EDT Emergency [facility] Emergency Department [address] [place] [phone] Acute exacerbation of chronic low back pain (Primary Dx) Discharge Disposition: Home or Self Care 09/01/2024 Travel 08/30/2024 7:01 PM EDT - 08/30/2024 7:41 PM EDT Emergency [facility] Emergency Department [address] [place] [address] Acute exacerbation of chronic low back pain (Primary Dx) Discharge Disposition: Home or Self Care 08/30/2024 Travel 08/26/2024 3:34 PM EDT - 08/26/2024 5:03 PM EDT Emergency [facility] Emergency Department [address] [place] [phone] Acute exacerbation of chronic low back pain (Primary Dx) Discharge Disposition: Home or Self Care 08/26/2024 Travel 08/21/2024 12:45 PM EDT - 08/21/2024 7:04 PM EDT Emergency [facility] Emergency Department [address] [place] [address] Spinal stenosis of lumbar region, unspecified whether neurogenic claudication present (Primary Dx); Acute cystitis without hematuria Discharge Disposition: Home or Self Care 08/21/2024 Travel 08/20/2024 5:55 PM EDT - 08/20/2024 9:38 PM EDT Emergency [facility] Emergency Department [address] [place] [address] Acute exacerbation of chronic low back pain (Primary Dx); Left leg numbness; Failed back syndrome Discharge Disposition: Home or Self Care 08/20/2024 Travel 08/20/2024 Telephone [facility] [address] [address] Michel Sullivan, DO NUMBNESS 08/18/2024 3:30 PM EDT - 08/18/2024 4:25 PM EDT Emergency [facility] Emergency Department [address] [place] [address] Acute exacerbation of chronic low back pain (Primary Dx) Discharge Disposition: Home or Self Care 08/18/2024 Travel 08/15/2024 2:48 PM EDT - 08/15/2024 4:03 PM EDT Emergency [facility] Emergency Department [address] [place] [address] Acute exacerbation of chronic low back pain (Primary Dx) Discharge Disposition: Home or Self Care 08/15/2024 Travel 08/03/2024 10:45 AM EDT Office Visit [facility] [address] [place] [address] Michel Sullivan DO Failed back syndrome (Primary Dx) 08/03/2024 Telephone [facility] [address] [address] Michel Sullivan, DO Refill switch pharmacy 07/14/2024 9:30 AM EDT Initial consult [facility] [address] [place] [address] El-José Antonio, Michel R, DO Failed back syndrome (Primary Dx) 07/14/2024 [facility]phone [facility] [address] [place] [phone] Michel Sullivan, medication issue from Last 3 Months Social History Tobacco Use Types Packs/Day Years Used Date Smoking Tobacco: Every Day Cigarettes 0.5 15 Passive Smoke Exposure: Current Tobacco Cessation:Ready to Q uit: Not Asked; Counseling Given: Not Answered Alcohol Use Standard Drinks/Week Comments No 0 [...] not to disclose 2024 8:22 AM EDT Last Filed Vital Signs Vital Sign Reading Time Taken Comments Blood Pressure 139/91 09/16/2024 6:07 PM EDT Pulse 82 09/16/2024 6:07 PM EDT Temperature 36.6 C (97.9 F) 09/16/2024 6:07 PM EDT Respiratory Rate 18 09/16/2024 6:07 PM EDT Oxygen Saturation 98% 09/16/2024 6:07 PM EDT Inhaled Oxygen Concentration - - Weight 118.8 kg (262 lb) 09/16/2024 6:07 PM EDT Height 160 cm (5' 3 ) 09/14/2024 4:57 PM EDT Body Mass Index 46.41 09/14/2024 4:57 PM EDT Plan of Treatment Upcoming Encounters Date Type Department Care Team (Latest Contact Info) Description 10/05/2024 10:15 AM EDT Office Visit [facility] [address] [place] [phone] Michel Sullivan DO [address] [place] [address] Return in about 4 weeks (around 10/05/2024) for Medication refill. Consider ITP injection based on discussion with Dr. Acosta . 10/08/2024 9:00 AM EDT Hospital Encounter [facility] OR [address] [place] [address] Michel Sullivan DO [address] [place] [address] 10/08/2024 9:00 AM EDT - 10/08/2024 10:38 AM EDT Surgery [facility] OR [address] [place] [address] Michel Sullivan DO [address] [place] [address] INTRATHECAL PAIN PUMP TRIAL / 1.5 HOURS / 1 C-ARM / DINORA SITE / Intrathecal Pump Trial. 0.1mg/mL of morphine and 0.1mg/mL of Bupivacaine in a 5mL syringe. 10/13/2024 9:15 AM EDT Office Visit [facility] [address] [place] [phone] Michel Sullivan DO [address] [place] [address] 10/08/24 PAIN PUMP TRIAL. 01/01/2025 1:45 PM EDT Office Visit [facility] [address] [facility] [address] [place] [address] Declan Batista MD [address] [facility] [address] [place] [address] Video link sent Scheduled Procedures Name Priority Associated Diagnoses Date/Ti me NERVE BLOCK (DEFINE) Failed back syndrome 10/08/2024 9:00 AM EDT Health Maintenance Due Date Last Done Comments Depression Screen 1989 HIV screen 1992 Hepatitis C screen 1995 DTaP/Tdap/Td vaccine (1 - Tdap) 1996 Pneumococcal 0-49 years Vacc ine (1 of 2 - PCV) 1996 Diabetes screen 2012 Breast cancer screen 2017 Lipids 2017 Colonoscopy 2022 Colorectal Cancer Screen 2022 FIT/FOBT: Average risk 2022 Fecal-DNA (Cologuard): [place] risk 2022 Sigmoidoscopy/CT colonography 2022 Hepatitis B vaccine (2 of 2 - CpG 2-dose series) 05/24/2023 04/26/2023 COVID-19 Vaccine (2 - 2023-2 5 season) 2023 07/03/2020 Flu vaccine (#1) 10/23/2024 Hepatitis A vaccine Aged Out No longe r eligible based on patient's age to complete this topic Hib vaccine Aged Out No longer eligi ble based on patient's age to complete this topic Meningococcal (ACWY) vaccine Aged Out No longer eligible based on patient's age to complete this topic Meningococcal B vaccine Aged Out No l onger eligible based on patient's age to complete this topic Polio vaccine Aged Out No longer elig ible based on patient's age to complete this topic Procedures Procedure Name Priority Date/Time Associated Diagnosis Comments XR LUMBAR SPINE (2-3 VIEWS) STAT 09/14/2024 5:19 PM EDT URINALYSIS WITH REFLEX TO CULTURE STAT 09/14/2024 5:19 PM EDT MRI LUMBAR SPINE W WO CONTRAST STAT 08/21/2024 5:48 PM EDT MICROSCOPIC URINALYSIS STAT 4:25 PM EDT URINALYSIS WITH REFLEX TO CULTURE STAT 08/21/2024 4:25 PM EDT LACTIC ACID STAT 08/21/2024 1:24 PM EDT SEDIMENTATION RATE STAT 08/21/2024 1: 24 PM EDT C-REACTIVE PROTEIN STAT 08/21/2024 1: 24 PM EDT COMPREHENSIVE METABOLIC PANEL STAT 08/21/2024 1:24 PM EDT CBC WITH AUTO DIFFERENTIAL STAT 08/21/2024 1:[address] LUMBAR SPINE WO CONTRAST STAT 08/20/2024 7:04 PM EDT from Last 3 Months Results * XR LUMBAR SPINE (2-3 VIEWS) (09/14/2024 5:19 PM EDT) Anatomical Region Laterality Modality T-spine, L-spine, Pelvis Compute d Radiography 09/14/2024 5:31 PM EDT Impressions 09/14/2024 5:31 PM EDT Mild L4-L5 disc space narrowing. Narrative 09/14/2024 5:31 PM EDT EXAMINATION: XRAY VIEWS OF THE LUMBAR SPINE 09/14/2024 5:18 pm COMPARISON: None. HISTORY: ORDERING SYSTEM PROVIDED HISTORY: low back pain TECHNOLOGIST PROVIDED HISTORY: Reason for exam:->low back pain What reading provider will be dictating this exam?->CRC FINDINGS: Lumbar vertebral bodies are normal in height and alignment. No evidence of fracture. Visualized sacrum is unremarkable. Mild L4-L5 disc space narrowing. Procedure Note Arnoldo Shah MD - 09/14/2024 EXAMINATION: XRAY VIEWS OF THE LUMBAR SPINE 09/14/2024 5:18 pm COMPARISON: None. HISTORY: ORDERING SYSTEM PROVIDED HISTORY: low back pain TECHNOLOGIST PROVIDED HISTORY: Reason for exam:->low back pain What reading provider will be dictating this exam?->CRC FINDINGS: Lumbar vertebral bodies are normal in height and alignment. No evidenceof fracture. Visualized sacrum is unremarkable. Mild L4-L5 disc space narrowing. IMPRESSION: Mild L4-L5 disc space narrowing. Soraya Pepe Ariza KETTLEMAN - OIL AND GAS SUPERINTENDENT IMG DIAGNOSTIC IMAGING OR DERABLES Final Result * Urinalysis with Reflex to Culture (09/14/2024 5:19 PM EDT) Only the most recent of2 resultswithin the time period is included. Color, UA Yellow Straw/Yellow 09/14/2024 5:21 PM EDT [facility] Clarity, UA SLCLOUDY Clear 09/14/2024 5:21 PM EDT [facility] Glucose, Ur Negative Negative mg/dL 09/14/2024 5:21 PM [facility] Bilirubin, Urine Negative Negative [facility] Ketones, Urine Negative Negative mg/dL 09/14/2024 5:21 PM [facility] Specific Recluse, UA 1.015 1.005 - 1.030 09/14/2024 5:21 PM T [facility] Blood, Urine Negative Negative 09/14/2024 5:21 PM T [facility] pH, Urine 8.5 5.0 - 9.0 09/14/2024 5:21 PM [facility] Protein, UA Negative Negative mg/dL 09/14/2024 5:21 PM T [facility] Urobilinogen, Urine 0.2 <2.0 E.U./dL 09/14/2024 5:21 PM [facility] Nitrite, Urine Negative Negative 09/14/2024 5:21 PM [facility] Leukocyte Esterase, Urine Negative Negative 09/14/2024 5:21 PM [facility] Urine Reflex to Culture Not Indicated 09/14/2024 5:21 PM [facility] Urine 09/14/2024 5:19 PM EDT 09/14/2024 5:19 PM EDT us Soraya Ariza KETTLEMAN - OIL AND GAS SUPERINTENDENT URINE ORDERABLES Final Re sult [facility] [address] [place] [address], [facility] [phone] * MRI LUMBAR SPINE W WO CONTRAST (08/21/2024 5:48 PM EDT) Anatomical Region Laterality Modality T-spine, L-spine, Pelvis Magneti c Resonance 08/21/2024 6:12 PM EDT Impressions 08/21/2024 6:20 PM EDT 1. No acute osseous abnormality. 2. [id number] central canal stenosis is present at L4/L5. 3. Multiple levels of neural foraminal narrowing as described above. 4. No evidence of epidural mass or abscess. Narrative 08/21/2024 6:20 PM EDT EXAMINATION: MRI OF THE LUMBAR SPINE WITHOUT AND WITH CONTRAST 08/21/2024 5:13 pm TECHNIQUE: Multiplanar multisequence MRI of the lumbar spine was performed without and with the administration of intravenous contrast. COMPARISON: No prior comparison currently available. HISTORY: ORDERING SYSTEM PROVIDED HISTORY: low back pain, incontinent of urine TECHNOLOGIST PROVIDED HISTORY: Reason for exam:->low back pain, incontinent of urine Decision Support Exception - unselect if not a suspected or confirmed emergency medical condition->Emergency Medical Condition (MA) What reading provider will be dictating this exam?->CRC FINDINGS: No evidence of fracture or malalignment. There is moderate disc space narrowing at L4/L5. Mild edematous degenerative endplate changes are also present at L4/L5. There appears to be postsurgical changes are seen at L4/L5. No prevertebral soft tissue edema. The conus medullaris is unremarkable. No evidence of epidural mass or hematoma. No abnormal enhancement involving the nerve roots. No evidence of epidural abscess. No findings to suggest paravertebral abscess or soft tissue mass. There appears to be scarring associated with the posterior subcutaneous fat. L1/L2: No central canal stenosis or neural foraminal narrowing. L2/L3: No central canal stenosis or neural foraminal narrowing. L3/L4: There is moderate bilateral facet hypertrophy. No central canal stenosis. There is mild right neural foraminal narrowing. L4/L5: Facet hypertrophy is present with circumferential disc bulge resulting in [id number] central canal stenosis. Moderate to severe bilateral neural foraminal narrowing is present at this level. L5/S1: Facet hypertrophy is present. No central canal stenosis. There is moderate to severe right neural foraminal narrowing and mild left neural foraminal narrowing. Procedure Note Ray Jauregui DO - 08/21/2024 EXAMINATION: MRI OF THE LUMBAR SPINE WITHOUT AND WITH CONTRAST 08/21/2024 5:13 pm TECHNIQUE: Multiplanar multisequence MRI of the lumbar spine was performed withoutand with the administration of intravenous contrast. COMPARISON: No prior comparison currently available. HISTORY: ORDERING SYSTEM PROVIDED HISTORY: low back pain, incontinent of urine TECHNOLOGIST PROVIDED HISTORY: Reason for exam:->low back pain, incontinent of urine Decision Support Exception - unselect if not a suspected or confirmed emergency medical condition->Emergency Medical Condition (MA) What reading provider will be dictating this exam?->CRC FINDINGS: No evidence of fracture or malalignment. There is moderate disc space narrowing at L4/L5. Mild edematous degenerative endplate changes arealso present at L4/L5. There appears to be postsurgical changes are seen at L4/L5. No prevertebral soft tissue edema. The conus medullaris is unremarkable. No evidence of epidural mass or hematoma. No abnormal enhancement involving the nerve roots. No evidence of epidural abscess.No findings to suggest paravertebral abscess or soft tissue mass. Thereappears to be scarring associated with the posterior subcutaneous fat. L1/L2: No central canal stenosis or neural foraminal narrowing. L2/L3: No central canal stenosis or neural foraminal narrowing. L3/L4: There is moderate bilateral facet hypertrophy. No central canal stenosis. There is mild right neural foraminal narrowing. L4/L5: Facet hypertrophy is present with circumferential disc bulgeresulting in [id number] central canal stenosis. Moderate to severebilateral neural foraminal narrowing is present at this level. L5/S1: Facet hypertrophy is present. No central canal stenosis. Thereis moderate to severe right neural foraminal narrowing and mild left neural foraminal narrowing. IMPRESSION: 1. No acute osseous abnormality. 2. Mkom-er-ofgivvnf central canal stenosis is present at L4/L5. 3. Multiple levels of neural foraminal narrowing as described above. 4. No evidence of epidural mass or abscess. us Tomas Bernard PA-C IMG MRI ORDERABLES Final R esult * (ABNORMAL) Microscopic Urinalysis (08/21/2024 4:25 PM EDT) Bacteria, UA MANY(A) Negative /HPF 08/21/2024 4:35 PM EDT [facility] Hyaline Casts, UA 1-3 0 - 5 /HPF 08/21/2024 4:35 PM EDT [facility] WBC, UA 6-9(A) 0 - 5 /HPF 08/21/2024 4:35 PM EDT [facility] RBC, UA 0-2 0 - 5 /HPF 08/21/2024 4:35 PM EDT [facility] Epithelial Cells, UA 3-5 0 - 5 /HPF 08/21/2024 4:35 PM EDT [facility] 08/21/2024 4:25 PM EDT 08/21/2024 4:25 PM EDT us Tomas Bernard PA-C URINE ORDERABLES Final Res ult [facility] [address] [place] [address], [facility] [phone] * Sedimentation Rate (08/21/2024 1:24 PM EDT) Sed Rate, Automated 13 0 - 20 mm 08/21/2024 1:57 PM EDT [facility] Comment:ESR Units mm/Hr Blood BLOOD SPECIMEN / Unknown 08/21/2024 1:24 PM EDT 08/21/2024 1:24 PM EDT us Tomas Bernard PA-C HEMATOLOGY ORDERABLES Flor l Result [facility] [address] [phone] * (ABNORMAL) CBC with Auto Differential (08/21/2024 1:24 PM EDT) WBC 11.0(H) 4.8 - 10.8 K/uL 08/21/2024 1:30 PM EDT [facility] RBC 5.22 4.20 - 5.40 M/uL 08/21/2024 1:30 PM EDT [facility] Hemoglobin 15.2 12.0 - 16.0 g/dL 08/21/2024 1:30 PM EDT [facility] Hematocrit 46.3 37.0 - 47.0 % 08/21/2024 1:30 PM EDT [facility] MCV 88.7 79.4 - 94.8 fL 08/21/2024 1:30 PM EDT [facility] MCH 29.1 27.0 - 31.3 pg 08/21/2024 1:30 PM EDT [facility] MCHC 32.8(L) 33.0 - 37.0 % 08/21/2024 1:30 PM EDT [facility] RDW 13.9 11.5 - 14.5 % 08/21/2024 1:30 PM EDT [facility] Platelets 391 130 - 400 K/uL 08/21/2024 1:30 PM EDT [facility] Neutrophils % 82.5 % 08/21/2024 1:30 PM EDT [facility] Lymphocytes % 11.9 % 08/21/2024 1:30 PM EDT [facility] Monocytes % 5.0 % 08/21/2024 1:30 PM EDT [facility] Eosinophils % 0.1 % 08/21/2024 1:30 PM EDT [facility] Basophils % 0.1 % 08/21/2024 1:30 PM EDT [facility] Neutrophils Absolute 9.1(H) 1.4 - 6.5 K/uL 08/21/2024 1:30 PM EDT [facility] Lymphocytes Absolute 1.3 1.0 - 4.8 K/uL 08/21/2024 1:30 PM EDT [facility] Monocytes Absolute 0.6 0.2 - 0.8 K/uL 08/21/2024 1:30 PM EDT [facility] Eosinophils Absolute 0.0 0.0 - 0.7 K/uL 08/21/2024 1:30 PM EDT [facility] Basophils Absolute 0.0 0.0 - 0.2 K/uL 08/21/2024 1:30 PM EDT [facility] Blood BLOOD SPECIMEN / Unknown 08/21/2024 1:24 PM EDT 08/21/2024 1:24 PM EDT Tomas Bernard PA-C HEMATOLOGY ORDERABLES Flor l Result [facility] [address] [facility] [place] [address], [facility] [phone] * C-Reactive Protein (08/21/2024 1:24 PM EDT) CRP <3.0 0.0 - 5.0 mg/L 08/21/2024 1:48 PM EDT [facility] Blood BLOOD SPECIMEN / Unknown 08/21/2024 1:24 PM EDT 08/21/2024 1:24 PM EDT Tomas Bernard PA-C CHEMISTRY ORDERABLES Final Result [facility] [address] [facility] [place] [address], [facility] [phone] * Lactic Acid (08/21/2024 1:24 PM EDT) Lactic Acid 1.8 0.5 - 2.2 mmol/L 08/21/2024 1:28 PM EDT [facility] Blood BLOOD SPECIMEN / Unknown 08/21/2024 1:24 PM EDT 08/21/2024 1:24 PM EDT us Tomas Bernard PA-C CHEMISTRY ORDERABLES Final Result [facility] [address] [place] [id number], [facility] [phone] * (ABNORMAL) CMP (08/21/2024 1:24 PM EDT) Sodium 139 135 - 144 mEq/L 08/21/2024 1:28 PM EDT [facility] Potassium 4.2 3.4 - 4.9 mEq/L 08/21/2024 1:28 PM EDT [facility] Chloride 103 95 - 107 mEq/L 08/21/2024 1:28 PM EDT [facility] CO2 23 20 - 31 mEq/L 08/21/2024 1:28 PM EDT [facility] Anion Gap 13 9 - 15 mEq/L 08/21/2024 1:28 PM EDT [facility] Glucose 144(H) 70 - 99 mg/dL 08/21/2024 1:28 PM EDT [facility] BUN 11 6 - 20 mg/dL 08/21/2024 1:28 PM EDT [facility] Creatinine 0.70 0.50 - 0.90 mg/dL 08/21/2024 1:28 PM EDT [facility] Est, Glom Filt Rate >90.0 >60 08/21/2024 1:28 PM EDT [facility] Comment: Pediatric calculator link https://www.kidney.org/professionals/kdoqi/gfr_calculatorped Effective Dec 25, 2021 These results are not intended for use in patients <18 years of age. eGFR results are calculated without a race factor using the 2020 CKD-EPI equation. Careful clinical correlation is recommended, particularly when comparing to results calculated using previous equations. The CKD-EPI equation is less accurate in patients with extremes of muscle mass, extra-renal metabolism of creatinine, excessive creatinine ingestion, or following therapy that affects renal tubular secretion. Calcium 9.4 8.5 - 9.9 mg/dL 08/21/2024 1:28 PM EDT [facility] Total Protein 7.8 6.3 - 8.0 g/dL 08/21/2024 1:28 PM EDT [facility] Albumin 4.3 3.5 - 4.6 g/dL 08/21/2024 1:28 PM EDT [facility] Total Bilirubin <0.2 0.2 - 0.7 mg/dL 08/21/2024 1:28 PM EDT [facility] Alkaline Phosphatase 126 40 - 130 U/L 08/21/2024 1:28 PM EDT [facility] ALT 44(H) 0 - 33 U/L 08/21/2024 1:28 PM EDT [facility] AST 35 0 - 35 U/L 08/21/2024 1:28 PM EDT [facility] Globulin 3.5 2.3 - 3.5 g/dL 08/21/2024 1:28 PM EDT [facility] Blood BLOOD SPECIMEN / Unknown 08/21/2024 1:24 PM EDT 08/21/2024 1:24 PM EDT Tomas Bernard PA-C CHEMISTRY ORDERABLES Final Result [facility] [address] [place] [address], [facility] [phone] * CT LUMBAR SPINE WO CONTRAST (08/20/2024 7:04 PM EDT) Anatomical Region Laterality Modality T-spine, L-spine, Pelvis Compute d Tomography 08/20/2024 7:59 PM EDT Impressions 08/20/2024 8:06 PM EDT 1. Degenerative disc disease and facet arthropathy with associated narrowing at L4-5 and L5-S1 as detailed above. Consider MRI for further evaluation. Postoperative changes. 2. Hypodense adrenal nodules, likely incidental and benign though with limited evaluation on this study. Recommend dedicated CT or MRI in the absence of prior studies for comparison. Narrative 08/20/2024 8:06 PM EDT EXAMINATION: CT OF THE LUMBAR SPINE WITHOUT CONTRAST 08/20/2024 TECHNIQUE: CT of the lumbar spine was performed without the administration of intravenous contrast. Multiplanar reformatted images are provided for review. Adjustment of mA and/or kV according to patient size was utilized. Automated exposure control, iterative reconstruction, and/or weight based adjustment of the mA/kV was utilized to reduce the radiation dose to as low as reasonably achievable. COMPARISON: None HISTORY: ORDERING SYSTEM PROVIDED HISTORY: numbness left leg worsening of back pain TECHNOLOGIST PROVIDED HISTORY: Reason for exam:->numbness left leg worsening of back pain Decision Support Exception - unselect if not a suspected or confirmed emergency medical condition->Emergency Medical Condition (MA) What reading provider will be dictating this exam?->CRC FINDINGS: Degenerative disc disease which is most noted at the L4-5 and L5-S1 levels. Facet arthropathy. Lumbar vertebral body heights are preserved. Degenerative changes of the sacroiliac joints. There is some edema present within the posterior subcutaneous tissues. Atherosclerotic disease. There are bilateral hypodense adrenal nodules measuring 2.1 cm on the left and 1.9 cm on the right. There is some limited evaluation on this study due to technique. L1-L2: No significant narrowing. L2-L3: No significant narrowing. L3-L4: Disc bulge with facet arthropathy and thickening ligamentum flavum. Mild central canal narrowing. Mild bilateral neural foraminal narrowing. L4-L5: Disc bulge with osteophytosis, facet arthropathy and thickening ligamentum flavum. There appear to be postoperative changes on the left at this level. There may be mild to moderate narrowing of the central canal. Moderate to severe neural foraminal narrowing bilaterally. L5-S1: Disc bulge with osteophytosis, facet arthropathy and thickening ligamentum flavum. There appears to be narrowing of the anterior aspect of the central canal. Severe bilateral neural foraminal narrowing. Procedure Note Peter Dorsey MD - 08/20/2024 EXAMINATION: CT OF THE LUMBAR SPINE WITHOUT CONTRAST 08/20/2024 TECHNIQUE: CT of the lumbar spine was performed without the administration of intravenous contrast. Multiplanar reformatted images are provided forreview. Adjustment of mA and/or kV according to patient size was utilized.Automated exposure control, iterative reconstruction, and/or weight based adjustmentof the mA/kV was utilized to reduce the radiation dose to as low asreasonably achievable. COMPARISON: None HISTORY: ORDERING SYSTEM PROVIDED HISTORY: numbness left leg worsening of backpain TECHNOLOGIST PROVIDED HISTORY: Reason for exam:->numbness left leg worsening of back pain Decision Support Exception - unselect if not a suspected or confirmed emergency medical condition->Emergency Medical Condition (MA) What reading provider will be dictating this exam?->CRC FINDINGS: Degenerative disc disease which is most noted at the L4-5 and L5-S6vyxphy. Facet arthropathy. Lumbar vertebral body heights are preserved. Degenerative changes of the sacroiliac joints. There is some edema present within the posterior subcutaneous tissues. Atherosclerotic disease. There are bilateral hypodense adrenal nodules measuring 2.1 cm on theleft and 1.9 cm on the right. There is some limited evaluation on this studydue to technique. L1-L2: No significant narrowing. L2-L3: No significant narrowing. L3-L4: Disc bulge with facet arthropathy and thickening ligamentumflavum. Mild central canal narrowing. Mild bilateral neural foraminalnarrowing. L4-L5: Disc bulge with osteophytosis, facet arthropathy and thickening ligamentum flavum. There appear to be postoperative changes on the leftat this level. There may be mild to moderate narrowing of the centralcanal. Moderate to severe neural foraminal narrowing bilaterally. L5-S1: Disc bulge with osteophytosis, facet arthropathy and thickening ligamentum flavum. There appears to be narrowing of the anterior aspectof the central canal. Severe bilateral neural foraminal narrowing. IMPRESSION: 1. Degenerative disc disease and facet arthropathy with associatednarrowing at L4-5 and L5-S1 as detailed above. Consider MRI for furtherevaluation. Postoperative changes. 2. Hypodense adrenal nodules, likely incidental and benign though with limited evaluation on this study. Recommend dedicated CT or MRI in the absence of prior studies for comparison. Cameron Dan KETTLEMAN - OIL AND GAS SUPERINTENDENT IMG CT ORDERABLES Fin al Result from Last 3 Months Insurance [facility] [place] [address] [phone] Advance Directives * Full Code (Latest Code Status on File) Date Activated Date Inactivated Comments 01/31/2014 5:10 AM 01/31/2014 7:41 PM Care Teams Natural Developer Relationship Specialty Start Date End Date Carole Kent APRN - OIL AND GAS SUPERINTENDENT [address] [facility] [address] [place] [address] PCP - General Nurse Practitioner 06/25/24
--- OUTSIDE RECORDS SUMMARY | 2024-09-29 20:57 | XMS_ITS | Encounter Summary ---
Author Organization [facility] Address [address] [place] [address] Phone Care Team Providers Care Marker Hand Name Role Phone Alejandro Fitzpatrick MD Primary Care Provider Kati Schwartz CMA Unavailable [phone] Generic Provider, No Assigned Pcp Primary Car e Provider Unavailable Alejandro Fitzpatrick MD Primary Care Provider Elva Lowe MA Unavailable [phone] Carole Huertas RELEASE AND TECHNICAL RECORDS CLERK-EMERY WHEEL MOLDER Primary Care Prov ider Generic Provider, No Assigned Pcp Primary Car e Provider Unavailable Encounter Details Date Type Department Care Team (Late st Contact Info) Description 03/19/2024 Scanned Document [facility] Internal Medicine [address] [facility] [address] [place] [address] Alejandro Fitzpatrick MD [address] [facility] [address] [place] [address] Social History Tobacco Use Types Packs/Day Years [...] from your doctor or pharmacy? Never 01/28/2024 [facility] Utilities Answer Date Recorded In the [...] How often do you attend chur or restorationism services? Never 01/28/2024 Do you belong to any clubs o r organizations such as zoroastrianism groups, unions, fraternal or athletic groups, or [...] Recorded Patient Health Questionnaire-2 Score 0 03/03/2024 [facility] - Occupational Stress Questionnaire Answer [...] any time in the past 12 m [facility], were you homeless or living in a correction (including now)? No 01/28/2024 Comments No Sex and Gender Information Value Date Recorded Sex Assigned at Female 08/21/2023 6:49 AM EDT Legal Sex Female 10:27 PM EDT Gender Identity Female 08/21/2023 6:49 AM EDT Sexual Orientation Not on file COVID-19 Exposure Response Date Recorded In the last 10 days, have maryjane mccarty been in contact with someone who was [...] 3:34 PM EDT David Daly RN * Calculated C-SSRS Risk Score (Lifetime/Recent) Answer Date of Assessment Author No Risk Indicated 03/19/2024 5:54 PM Peter Chavarria RN * [place] Suicide Severity Rating Scale (Screener/Recent Self-Report) Question Answer Date of Assessment Author 1. Wish to be (Past 1 Month) No 024 5:54 PM Peter Chavarira RN 2. Non-Specific Active Suici barbara Thoughts (Past 1 Month) No 03/19/2024 5:54 PM EST Edson Nelson RN 6. Suicidal Behavior (Lifetime) No 5:54 PM EST Peter Nelson RN documented as of this encounter Mental [...] Description 10/20/2024 8:30 AM EDT Office Visit [facility] Neurosurgery [address] [place] [address] Jori Harman MD PhD [address] [place] [address] documented as of this encounter Visit Diagnoses Not on filedocumented in this encounter Additional Health Concerns Assessment Noted Time A fall risk assessment has been complete d for the patient 03/03/2024 9:49 AM EST documented as of this encounter Care Teams Marker Hand Relationship Specialty Start Date End Date Alejandro Fitzpatrick MD [address] [facility] [address] [place] [address] PCP - General Internal Medicine 01/01/24 05/14/24 Generic Provider, [place] [address] PCP - General Events And Promotions Assistant 05/15/24 05/25/24 Alejandro Fitzpatrick MD [address] [facility] [address] [place] [address] PCP - General Internal Medicine 05/26/24 06/22/24 Carole Huertas, RELEASE AND TECHNICAL RECORDS CLERK-EMERY WHEEL MOLDER PCP - General Family Medicine 06/23/24 06/26/24 Generic Provider, No [place] [address] PCP - General Events And Promotions Assistant 06/27/24 Kati Schwartz CMA Ball Point SplitterFieldwork Coordinator 05/04/24 05/18/24 Elva Lowe MA Ball Point SplitterFieldwork Coordinator 06/15/24 07/16/24 documented as of this encounter
--- OUTSIDE RECORDS SUMMARY | 2024-09-29 20:57 | XMS_ITS | Encounter Summary ---
Author Organization [facility] Address [address] [place] [address] Phone Care Team Providers Care Print Graphic Designer Name Role Phone Alejandro Fitzpatrick MD Primary Care Provider Kati Schwartz CMA Unavailable Generic Provider, No Assigned Pcp Primary Car e Provider Unavailable Alejandro Fitzpatrick MD Primary Care Provider Elva Lowe MA Unavailable [phone] Carole Huertas IMPORT/EXPORT ADMINISTRATOR-CORRECTIVE AND MANUAL ARTS THERAPIST Primary Care Prov ider Generic Provider, No Assigned Pcp Primary Car e Provider Unavailable Encounter Details Date Type Department Care Team (Late st Contact Info) Description 2024 Scanned Document [facility] Internal Medicine [address] [facility] [address] [place] [address] Alejandro Fitzpatrick MD [address] [facility] [address] [place] [address] Social History Tobacco Use Types Packs/Day Years [...] from your doctor or pharmacy? Never 01/28/2024 [facility] Utilities Answer Date Recorded In the past [...] How often do you attend chur or zoroastrianism services? Never 01/28/2024 Do you belong to any clubs o r organizations such as yazidism groups, unions, fraternal or athletic groups, or [...] Recorded Patient Health Questionnaire-2 Score 0 03/03/2024 [facility] - Occupational Stress Questionnaire Answer Date [...] any time in the past 12 m [facility], were you homeless or living in a long-term (including now)? No 01/28/2024 Comments No Sex [...] suspected to have Coronavirus/COVID-19? No / Unsure 03/27/2024 7:08 PM EST documented as of this encounter [...] Date of Assessment Author No Risk Indicated 03/27/2024 7:08 PM Dick Pendleton RN * [place] Suicide Severity Rating Scale (Screener/Recent Self-Report) Question Answer Date of Assessment Author 1. Wish to be (Past 1 Month) No 025 7:08 PM Dick Pendleton RN 2. Non-Specific Active Suici barbara Thoughts (Past 1 Month) No 03/27/2024 7:08 PM Dick Pendleton RN 6. Suicidal Behavior (Lifetime) No 7:08 PM Dick Pendleton, DARSHAN documented as of this encounter Mental Status [...] 10/20/2024 8:30 AM EDT Office Visit [facility] Neurosurgery [address] [place] [address] Jori Harman MD PhD [address] [place] [address] documented as of this encounter Visit Diagnoses Not on filedocumented in this encounter Additional Health Concerns Assessment Noted Time A fall risk assessment has been complete d for the patient 03/03/2024 9:49 AM EST documented as of this encounter Care Teams Print Graphic Designer Relationship Specialty Start Date End Date Alejandro Fitzpatrick MD [address] [facility] [address] [place] [address] PCP - General Internal Medicine 01/01/24 05/14/24 Generic Provider, No [place] [address] PCP - General Tire Recapper 05/15/24 05/25/24 Alejandro Fitzpatrick MD [address] [facility] [address] [place] [address] PCP - General Internal Medicine 05/26/24 06/22/24 Carole Huertas, IMPORT/EXPORT ADMINISTRATOR-CORRECTIVE AND MANUAL ARTS THERAPIST PCP - General Family Medicine 06/23/24 06/26/24 Generic Provider, No [place] [address] PCP - General Tire Recapper 06/27/24 Kati Schwartz CMA Laborer StoresReconcilement Clerk 05/04/24 05/18/24 Elva Lowe MA Laborer StoresReconcilement Clerk 06/15/24 07/16/24 documented as of this encounter
--- OUTSIDE RECORDS SUMMARY | 2024-09-29 20:57 | XMS_ITS | Encounter Summary ---
Author Organization [facility] Address [address] [place] [address] Phone Care Team Providers Care Columnist Name Role Phone Alejandro Fitzpatrick MD Primary Care Provider Kati Schwartz CMA Unavailable Generic Provider, No Assigned Pcp Primary Car e Provider Unavailable Alejandro Fitzpatrick MD Primary Care Provider Elva Lowe MA Unavailable [phone] Carole Huertas WELFARE SERVICE AIDE-FINANCIAL COMPLIANCE MANAGER Primary Care Prov ider Generic Provider, No Assigned Pcp Primary Car e Provider Unavailable Encounter Details Date Type Department Care Team (Late st Contact Info) Description 03/23/2024 Scanned Document [facility] Internal Medicine [address] [place] [address] Alejandro Fitzpatrick MD [address] [place] [address] Social History Tobacco Use Types Packs/Day Years [...] from your doctor or pharmacy? Never 01/28/2024 [facility] Utilities Answer Date Recorded In [...] How often do you attend chur or gnosticism services? Never 01/28/2024 Do you belong to [...] Recorded Patient Health Questionnaire-2 Score 0 03/03/2024 [facility] - Occupational Stress Questionnaire Answer Date Recorded [...] any time in the past 12 m [facility], were you homeless or living in a [...] suspected to have Coronavirus/COVID-19? No / Unsure 03/26/2024 4:15 PM EST documented as of this encounter [...] Date of Assessment Author No Risk Indicated 03/26/2024 4:15 PM Charla Hoff RN * [place] Suicide Severity Rating Scale (Screener/Recent Self-Report) Question Answer Date of Assessment Author 1. Wish to be (Past 1 Month) No 025 4:15 PM Charla Batres RN 2. Non-Specific Active Suici barbara Thoughts (Past 1 Month) No 03/26/2024 4:15 PM EST Ministerio Segovia RN 6. Suicidal Behavior (Lifetime) No 4:15 PM Charla Batres RN documented as of this encounter Mental [...] Description 10/20/2024 8:30 AM EDT [facility] Neurosurgery [address] [place] [address] Jori Harman MD PhD [address] [place] [address] documented as of this encounter Visit Diagnoses Not on filedocumented in this encounter Additional Health Concerns Assessment Noted Time A fall risk assessment has been complete d for the patient 03/03/2024 9:49 AM EST documented as of this encounter Care Teams Columnist Relationship Specialty Start Date End Date Alejandro Fitzpatrick MD [address] [facility] [address] [place] [address] PCP - General Internal Medicine 01/01/24 05/14/24 Generic Provider, No [place] [address] PCP - General Emergency Department 05/15/24 05/25/24 Alejandro Fitzpatrick MD [address] [facility] [address] [place] [address] PCP - General Internal Medicine 05/26/24 06/22/24 Carole Huertas, WELFARE SERVICE AIDE-FINANCIAL COMPLIANCE MANAGER PCP - General Family Medicine 06/23/24 06/26/24 Generic Provider, No Assigned [facility] [place] [address] PCP - General Emergency Department 06/27/24 Kati Schwartz CMA Coke WorkerJoiner 05/04/24 05/18/24 Elva Lowe MA Coke WorkerJoiner 06/15/24 07/16/24 documented as of this encounter
--- OUTSIDE RECORDS SUMMARY | 2024-09-29 20:57 | XMS_ITS | Encounter Summary ---
Author Organization [facility] Address [address] [place] [address] Care Team Providers Care Geophysical Support Specialist Name Role Phone Unavailable Primary Care Provider Unavailabl e Source Comments In the event this information is protected by the Federal Confidentiality of Alcohol and Drug AbusePatient Records regulations: The Federal rules restrict any use of the information to criminally investigate or prosecute any alcohol or drug abuse patient.[facility] Encounter Details Date Type Department Care Team (Late st Contact Info) Description 04/02/2024 Patient [facility] [place] [facility] [address] [id number] Provider, Ccf Follow Up Appointment - Spine Social History Tobacco Use Types Packs/Day Years Used Date Smoking Tobacco: Never Assessed [facility] Utilities Answer Date Recorded In the past 12 months has e electric, gas, oil, or water company [...] often do you attend chur ch or sabianist services? Never 04/02/2024 Do you belong to any clubs o r organizations such as shinto groups, unions, fraternal or athletic groups, or [...] Answer Date Recorded PHQ-2 score 2 04/02/2024 [facility] of Occupat ional [facility] - Occupational Stress Questionnaire Answer Date Recorded [...] is lower risk 4 03/30/2024 Data from: https://www.neighborhoodatlas.medicine.[facility].edu/. Last address used for calculation [address] [...]
--- OUTSIDE RECORDS SUMMARY | 2024-09-29 20:58 | XMS_ITS | Encounter Summary ---
Author Organization [facility] Address [address] [place], [place] [id number] Care Team Providers Care Supervisor Dehydrogenation Name Role Phone No, Physician Primary Care Provider Unavailabl e Encounter Details Date Type Department Care Team (Latest Contact Info) Description 09/27/2024 Travel Social History Tobacco Use Types Packs/Day [...] PM EDT documented as of this encounter Plan of Treatment Not on file documented as of this encounter Visit Diagnoses Not on filedocumented in this encounter Care Teams Supervisor Dehydrogenation Relationship Specialty Start Date End Date No, Physician [facility] PCP - General 12/29/23 documented as of this encounter
--- OUTSIDE RECORDS SUMMARY | 2024-09-29 20:58 | XMS_ITS | Encounter Summary ---
Author Organization [facility] Address [address] [place] [address] Phone Care Team Providers Care Rate Setter Name Role Phone Alejandro Fitzpatrick MD Primary Care Provider Elva Lowe MA Unavailable [phone] Carole Huertas APRN-SECURITY ARCHITECT Primary Care Prov ider Generic Provider, No Assigned Pcp Primary Car e Provider Unavailable Reason for Visit * Reason Comments Med Change Request Encounter Details Date Type Department Care Team (Late st Contact Info) Description 06/08/2024 Refill [facility] [address] [place] [id number] [place] [address] [facility] Department of Medicine-General Internal [address] [phone] Back pain with radiation Social History Tobacco Use Types Packs/Day Years [...] from your doctor or pharmacy? Never 06/12/2024 [facility] Utilities Answer Date Recorded In the past 12 months has th e [employer], gas, oil, or water company threatened to [...] How often do you attend chur or jehovah's witness services? Never 06/12/2024 Do you belong to any clubs o r organizations such as bahai groups, unions, fraternal or athletic groups, or [...] Recorded Patient Health Questionnaire-2 Score 0 06/12/2024 [facility] of Occupat ional [facility] - Occupational Stress Questionnaire Answer [...] any time in the [facility], [facility] you homeless or living in a detention (including now)? No 06/12/2024 Comments No Sex [...] suspected to have Coronavirus/COVID-19? No / Unsure 06/11/2024 7:53 PM EDT documented as of this encounter [...] Date of Assessment Author No Risk Indicated 06/11/2024 7:53 PM EDT Chong Stone RN * [place] Suicide Severity Rating Scale (Screener/Recent Self-Report) Question Answer Date of Assessment Author 1. Wish to be (Past 1 Month) No 025 7:53 PM ELENAT Chong Stone RN 2. Non-Specific Active Suici barbara Thoughts (Past 1 Month) No 06/11/2024 7:53 PM ELENAT Chong Stone RN 6. Suicidal Behavior (Lifetime) No 7:53 PM ELENAT Chong Stone RN documented as of this encounter Mental Status * Because of a physical, mental, or emotional condition, do you have serious difficulty concentrating, remembering, or making decisions? (5 years old or older) Answer Entry Date Author No 01/03/2024 3:34 PM EDT Malika, C assandra, RN documented in this encounter Plan of Treatment Upcoming Encounters Date Type Department Care Team (Late st Contact Info) Description 10/20/2024 8:30 AM EDT Office Visit [facility] Neurosurgery [address] [place] [address] Jori Harman MD PhD [address] [place] [address] documented as of this encounter Visit Diagnoses Diagnosis Back pain with radiation Unspecified backache documented in this encounter Additional Health Concerns Assessment Noted Time A fall risk assessment has been complete d for the patient 05/05/2024 2:38 PM EST documented as of this encounter Care Teams Rate Setter Relationship Specialty Start Date End Date Alejandro Fitzpatrick MD [address] [place] [address] PCP - General Internal Medicine 05/26/24 06/22/24 Carole Huertas, CREPING 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 HELPER-SECURITY ARCHITECT PCP - General Family Medicine 06/23/24 06/26/24 Generic Provider, No Assigned PcpMD NONE [facility] [place] [address] PCP - General Director Targeted Marketing 06/27/24 Elva Lowe MA Ticketing ClerkField Service Supervisor 06/15/24 07/16/24 documented as of this encounter
--- OUTSIDE RECORDS SUMMARY | 2024-09-29 20:58 | XMS_ITS | Encounter Summary ---
Author Organization [facility] Address [address] [place] [address] Phone Care Team Providers Care Manager Food Safety Name Role Phone Alejandro Fitzpatrick MD Primary Care Provider Kati Schwartz CMA Unavailable [phone] Generic Provider, No Assigned Pcp Primary Car e Provider Unavailable Alejandro Fitzpatrick MD Primary Care Provider Elva Lowe MA Unavailable [phone] Carole Huertas LOCOMOTIVE SWITCH OPERATOR-MEMORIAL COUNSELOR Primary Care Prov ider Generic Provider, No Assigned Pcp Primary Car e Provider Unavailable Encounter Details Date Type Department Care Team (Late st Contact Info) Description 05/05/2024 Scanned Document [facility] Internal Medicine [address] [facility] [address] [place] [address] Alejandro Fitzpatrick MD [address] [facility] [address] [place] [address] Social History Tobacco Use Types Packs/Day Years [...] from your doctor or pharmacy? Never 01/28/2024 [facility] Utilities Answer Date Recorded In the past 12 months has th e electric, gas, oil, or water company threatened to shut off services in your home? No 05/02/2024 Humiliation, Afraid, Rape, and Kick questionnair e [...] often do you have a drink containing alc ohol? Monthly or less 05/01/2024 Q2: How many drinks containi ng alcohol do you have on a typical day when you are drinking? 1 or 2 05/01/2024 Q3: How often do you have si x or more drinks on one occasion? Never 05/01/2024 Overall Financial Resource Strain (CARDIA) Answe r Date Recorded How hard is it for you to pa y for the very basics like food, housing, medical care, and heating? Not very hard 05/02/2024 PHQ-2 Answer Date Recorded Patient Health Questionnaire-2 Score 0 05/01/2024 [facility] of Occupat ional Health - Occupational Stress [...] medical appointments or from getting medications? No 10/2024 In the past 12 months, has l ack of transportation kept you from meetings, work, or from getting things needed for daily living? No 05/02/2024 Housing Stability Vital Sign Answer Gerry e Recorded In the last 12 months, was t here a time when you were not able to pay the mortgage or rent on time? No 05/02/2024 In the past 12 months, how m any times have you moved where you were living? 0 05/02/2024 At any time in the past 12 m [facility], were you homeless or living in a fdc (including now)? No 05/02/2024 Comments No Sex and Gender Information Value [...] suspected to have Coronavirus/COVID-19? No / Unsure 05/05/2024 2:04 PM EST documented as of this encounter [...] Description 10/20/2024 8:30 AM EDT Office Visit [facility] [address] [facility] [address] [place] [address] Jori Harman MD PhD [address] [place] [address] documented as of this encounter Visit Diagnoses Not on filedocumented in this encounter Additional Health Concerns Assessment Noted Time A fall risk assessment has been complete d for the patient 05/05/2024 2:38 PM EST documented as of this encounter Care Teams Manager Food Safety Relationship Specialty Start Date End Date Alejandro Fitzpatrick MD [address] [facility] [address] [place] [address] PCP - General Internal Medicine 01/01/24 05/14/24 Generic Provider, No [place] [address] PCP - General Efficiency Engineer 05/15/24 05/25/24 Alejandro Fitzpatrick MD [address] [facility] [address] [place] [address] PCP - General Internal Medicine 05/26/24 06/22/24 Carole Huertas, LOCOMOTIVE SWITCH OPERATOR-MEMORIAL COUNSELOR PCP - General Family Medicine 06/23/24 06/26/24 Generic Provider, No [place] [address] PCP - General Efficiency Engineer 06/27/24 Kati Schwartz CMA Service AgentCasing Soaker 05/04/24 05/18/24 Elva Lowe, MA Service AgentCasing Soaker 06/15/24 07/16/24 documented as of this encounter
--- OUTSIDE RECORDS SUMMARY | 2024-09-29 20:58 | XMS_ITS | Encounter Summary ---
Author Organization [facility] Address [address] [place] [address] Phone Care Team Providers Care Surveyor Helper Rod Name Role Phone Alejandro Fitzpatrick MD Primary Care Provider Elva Lowe MA Unavailable [phone] Carole Huerats APRN-OTHER SPATIAL SCIENTIST Primary Care Prov ider Generic Provider, No Assigned Pcp Primary Car e Provider Unavailable Encounter Details Date Type Department Care Team (Late st Contact Info) Description 05/26/2024 Scanned Document [facility] Internal Medicine [address] [place] [id number] Alejandro Fitzpatrick MD [address] [place] [address] Social History Tobacco Use Types Packs/Day Years [...] material from your doctor or pharmacy? Never 05/16/2024 [facility] Utilities Answer Date Recorded In the past 12 months has th e electric, gas, oil, or water company threatened to shut off services in your home? No 05/17/2024 Humiliation, Afraid, Rape, and Kick questionnair e Answer Date Recorded Within the last year, have y ou been afraid of your partner or ex-partner? No 05/16/2024 Within the last year, have y ou been humiliated or emotionally abused in other ways by your partner or ex-partner? No Within the last year, have y ou been kicked, hit, slapped, or otherwise physically hurt by your partner or ex-partner? No 05/16/2024 Within the last year, have y ou been raped or forced to have any kind of sexual activity by your partner or ex-partner? No 05/16/2024 Social Connection and Isolation Panel [NHANES] A nswer Date Recorded In a typical week, how many times do you talk on the phone with family, friends, or neighbors? Patient unable to answer 05/16/2024 How often do you get togethe r with friends or relatives? Patient declined 05/16/2024 How often do you attend [facility] or denominational services? Patient declined 05/16/2024 Do you belong to any clubs o r organizations such as jain groups, unions, fraternal or athletic groups, or school groups? Patient declined 05/16/2024 How often do you attend meet ings of the clubs or organizations you belong to? Patient declined 05/16/2024 Are you , , di vorced, , never , or living with a partner? Patient declined 05/16/2024 AUDIT-C Answer Date Recorded Q1: How often do you have a drink containing alc ohol? Monthly or less 05/16/2024 Q2: How many drinks containi ng alcohol do you have on a typical day when you are drinking? 1 or 2 05/16/2024 Q3: How often do you have si x or more drinks on one occasion? Never 05/16/2024 Overall Financial Resource Strain (CARDIA) Answe r Date Recorded How hard is it for you to pa y for the very basics like food, housing, medical care, and heating? Not hard at all 05/17/2024 PHQ-2 Answer Date Recorded Patient Health Questionnaire-2 Score 0 05/16/2024 [facility] of Occupat ional [facility] - Occupational Stress Questionnaire Answer Date Recorded Do you feel stress - tense, restless, nervous, or anxious, or unable to sleep at night because your mind is troubled all the time - these days? Patient declined 05/16/2024 Exercise Vital Sign Answer Date Recorde d On average, how many days pe r week do you engage in moderate to strenuous exercise (like a brisk walk)? 0 days 05/16/2024 On average, how many minutes do you engage in exercise at this level? 0 min 05/16/2024 Hunger Vital Sign Answer Date Recorded Within the past 12 months, y ou worried that your food would run out before you got the money to buy more. Patient declined Within the past 12 months, t he food you bought just didn't last and you didn't have money to get more. Patient declined PRAPARE - Transportation Answer Date Re corded In the past 12 months, has l ack of transportation kept you from medical appointments or from getting medications? No 04/26 In the past 12 months, has l ack of transportation kept you from meetings, work, or from getting things needed for daily living? No 05/17/2024 Housing Stability Vital Sign Answer Gerry e Recorded In the last 12 months, was t here a time when you were not able to pay the mortgage or rent on time? No 05/17/2024 In the past 12 months, how m any times have you moved where you were living? 0 05/17/2024 At any time in the past 12 m [facility], were you homeless or living in a prison (including now)? No 05/17/2024 Comments No Sex and Gender Information Value [...] suspected to have Coronavirus/COVID-19? No / Unsure 05/26/2024 1:48 PM EST documented as of this encounter Functional Status * Are you deaf or do you have serious difficulty hearing? Answer Date of Assessment Author No 01/03/2024 3:34 PM EDT David Daly RN * Are you blind or do you have serious difficulty seeing, even when wearing glasses? Answer Date of Assessment Author No 01/03/2024 3:34 PM EDDavid Zheng RN * Do you have serious difficulty walking or climbing stairs? Answer Date of Assessment Author Yes 01/03/2024 3:34 PM David Hernandez RN * Do you have serious difficulty dressing or bathing? Answer Date of Assessment Author No 01/03/2024 3:34 PM ELENAT David Daly RN * Because of a physical, mental, or emotional condition, do you have serious difficulty doing errandsalone such as visiting the doctor? Answer Date of Assessment Author No 01/03/2024 3:34 PM EDDavid Zheng RN * Calculated C-SSRS Risk Score (Lifetime/Recent) Answer Date of Assessment Author No Risk Indicated 05/27/2024 7:17 PM Lo Mac RN * [place] Suicide Severity Rating Scale (Screener/Recent Self-Report) Question Answer Date of Assessment Author 1. Wish to be (Past 1 Month) No 025 7:17 PM Lo Mac RN 2. Non-Specific Active Suici barbara Thoughts (Past 1 Month) No 05/27/2024 7:17 PM Mihaela Mac RN 6. Suicidal Behavior (Lifetime) No 7:17 PM Lo Mac RN documented as of this encounter Mental Status * Because of a physical, mental, or emotional condition, do you have serious difficulty concentrating, remembering, or making decisions? (5 years old or older) Answer Entry Date Author No 01/03/2024 3:34 PM David Hernandez RN documented in this encounter Plan of Treatment Upcoming Encounters Date Type Department Care Team (Late st Contact Info) Description 10/20/2024 8:30 AM EDT Office Visit [facility] Neurosurgery [address] [place] [address] Jori Harman MD PhD [address] [place] [address] documented as of this encounter Visit Diagnoses Not on filedocumented in this encounter Additional Health Concerns Assessment Noted Time A fall risk assessment has been complete d for the patient 05/05/2024 2:38 PM EST documented as of this encounter Care Teams Surveyor Helper Rod Relationship Specialty Start Date End Date Alejandro Fitzpatrick MD [address] [facility] [address] [place] [address] PCP - General Internal Medicine 05/26/24 06/22/24 Carole Huertas, POULTRY DEBEAKER-OTHER SPATIAL SCIENTIST PCP - General Family Medicine 06/23/24 06/26/24 Generic Provider, No Assigned [facility]cpMD NONE [facility] [place] [address] PCP - General Upstream Biomanufacturing Technician 06/27/24 Elva Lowe MA Bag FillerFruit Farmer 06/15/24 07/16/24 documented as of this encounter
--- OUTSIDE RECORDS SUMMARY | 2024-09-29 20:58 | XMS_ITS | Clinical Summary ---
Author Organization [facility] Address [address] [place] [id number] Care Team Providers Care Mathematical Technician Name Role Phone No, Physician Primary Care Provider Unavailabl e Allergies Active Allergy Reactions Criticality Noted Date Comments Diclofenac Hives 01/26/2024 Gabapentin Other (See Comments),Unknown 12/09/2023 Leg swelling Hydrocodone Hives 12/29/2023 Hydrocodone-Acetaminophen Hives 12/04/2022 Nabumetone Nausea And Vomiting,Nausea and vomiting,Rash Low 01/15/2023 Penicillins Unknown 12/29/2023 Pregabalin Other (See Comments),Swelling,Un known 02/06/2024 BLE Acetaminophen Liver Failure 12/29/2023 Medications FLUoxetine (PROZAC) 20 MG capsule Take 3 (three) capsules (60 mg total) by mouth daily . Active ibuprofen (ADVIL,MOTRIN) 800 MG tablet Take 1 (one) tablet (800 mg total) by mouth every 6 (six) hours as needed for pain . Active predniSONE (DELTASONE) 50 MG tablet Take 1 (one) tablet (50 mg total) by mouth daily for 6 days . 6 tablet 5 10/04/19 25 Active orphenadrine (NORFLEX) 100 mg tablet Take 1 (one) tablet (100 mg total) by mouth 2 (two) times a day for 10 days . 20 tablet 5 09/17/19 25 methylPREDNISol one (MEDROL DOSEPACK) 4 mg tablet Follow package directions . 21 tablet 5 09/13/19 25 methylPREDNISol one (MEDROL DOSEPACK) 4 mg tablet Follow package directions . 21 tablet 5 09/24/19 25 cyclobenzaprine (FLEXERIL) 10 MG tablet Take 1 (one) tablet (10 mg total) by mouth 3 (three) times a day as needed for muscle spasms . 30 tablet 5 09/28/19 25 Encounters Date Type Department Care Team Description 09/27/2024 10:23 AM EDT - 09/27/2024 10:59 AM EDT Emergency [facility] Emergency Department [address] [place] [phone] Dagoberto Butts, DO Discharge Disposition: Home 09/27/2024 Travel 09/17/2024 5:34 PM EDT - 09/17/2024 6:53 PM EDT Emergency [facility] Emergency Department [address] [place] [phone] Teresa Lipscomb MD Discharge Disposition: Home 09/17/2024 Travel 09/06/2024 4:42 PM EDT - 09/06/2024 5:05 PM EDT Emergency [facility] Emergency Department [address] [place] [phone] America Fitzpatrick MD Discharge Disposition: Home 09/06/2024 Travel 07/08/2024 5:46 PM EDT - 07/08/2024 8:26 PM EDT Emergency [facility] Emergency Department [address] [place] [address] Luís Madrigal, DO Discharge Disposition: Home 07/08/2024 Travel from Last 3 Months Social History Tobacco Use Types Packs/Day Years Used Date Smoking Tobacco: Every Day Cigarettes 0.5 30.8 Started: 12/28/1993 Smokeless Tobacco: Never Tobacco Cessation:Ready to Q [...] Orientation Straight 12/29/2023 2: 38 PM EDT Last Filed Vital Signs Vital Sign [...] Mass Index 46.06 09/27/2024 10:25 AM EDT Plan of Treatment Health Maintenance Due Date Last Done Comments CT Colonography 1977 Fecal DNA 1977 Fecal occult blood test (FOBT,FIT) 1977 Flexible sigmoidoscopy 1977 Tetanus: Every 10yrs 1977 Wellness Visit 1980 Depression Screening/Follow-Up (PHQ-2/9) 1989 Hepatitis C Screening 1995 Pneumococcal Vaccine: Ped or At-Risk (1 of 2 - PCV) Mammogram 2017 COVID-19 Vaccine (2 - season) 11/24/202301/2021 Influenza Vaccine (#1) 2024 Colonoscopy 03/30/2032 03/30/2022 Colorectal Cancer Screening/Monitoring 03/30/2032 HIV Screening Completed 04/01/2023 Insurance [facility] MEDICAID Care Teams Mathematical Technician Relationship Specialty Start Date End Date No, Physician [facility] PCP - General 12/29/23
--- OUTSIDE RECORDS SUMMARY | 2024-09-29 20:58 | XMS_ITS | Encounter Summary ---
Author Organization [facility] Address [address] [place] [address] Phone Care Team Providers Care Casting And Pasting Supervisor Name Role Phone Alejandro Fitzpatrick MD Primary Care Provider Kati Schwartz CMA Unavailable [phone] Generic Provider, No Assigned Pcp Primary Car e Provider Unavailable Alejandro Fitzpatrick MD Primary Care Provider Elva Lowe MA Unavailable [phone] Carole Huertas NUCLEAR RADIATION ENGINEER-UNIT TRUST MANAGER Primary Care Prov ider Generic Provider, No Assigned Pcp Primary Car e Provider Unavailable Encounter Details Date Type Department Care Team (Late st Contact Info) Description 04/17/2024 Scanned Document [facility] Internal Medicine [address] [facility] [address] [place] [address] Alejandro Fitzpatrick MD [address] [facility] [address] [place] [address] Social History Tobacco Use Types Packs/Day Years [...] from your doctor or pharmacy? Never 01/28/2024 [facility] Utilities Answer Date Recorded In [...] How often do you attend chur or anabaptism services? Never 01/28/2024 Do you belong to any clubs o r organizations such as methodist groups, unions, fraternal or athletic groups, or [...] Recorded Patient Health Questionnaire-2 Score 0 03/03/2024 [facility] [...] any time in the past 12 m [facility], were you homeless or living in a jail (including now)? No 01/28/2024 Comments No Sex [...] Description 10/20/2024 8:30 AM EDT Office Visit [facility] Neurosurgery [address] [phone] Jori Harman MD PhD [address] [facility] [address] [place] [address] documented as of this encounter Visit Diagnoses Not on filedocumented in this encounter Additional Health Concerns Assessment Noted Time A fall risk assessment has been complete d for the patient 03/30/2024 11:43 AM EST documented as of this encounter Care Teams Casting And Pasting Supervisor Relationship Specialty Start Date End Date Alejandro Fitzpatrick MD [address] [address] PCP - General Internal Medicine 01/01/24 05/14/24 Generic Provider, [place] [address] PCP - General Loading Inspector 05/15/24 05/25/24 Alejandro Fitzpatrick MD [address] [address] PCP - General Internal Medicine 05/26/24 06/22/24 Carole Huertas, NUCLEAR RADIATION ENGINEER-UNIT TRUST MANAGER PCP - General Family Medicine 06/23/24 06/26/24 Generic Provider, No [place] [address] PCP - General Loading Inspector 06/27/24 Kati Schwartz CMA Mud BossManager Ent 05/04/24 05/18/24 Elva Lowe MA Mud BossManager Ent 06/15/24 07/16/24 documented as of this encounter
--- OUTSIDE RECORDS SUMMARY | 2024-09-29 20:58 | XMS_ITS | Encounter Summary ---
Author Organization [facility] Address [address] [place], [place] [id number] Care Team Providers Care Gas Adjuster Name Role Phone No, Physician Primary Care Provider Unavailabl e Encounter Details Date Type Department Care Team (Latest Contact Info) Description 09/17/2024 Travel Social History Tobacco Use Types Packs/Day [...] on filedocumented in this encounter Care Teams Gas Adjuster Relationship Specialty Start Date End Date No, Physician [facility] PCP - General 12/29/23 documented as of this encounter
--- OUTSIDE RECORDS SUMMARY | 2024-09-29 20:58 | XMS_ITS | Encounter Summary ---
Author Organization [facility] Address [address] [place] [address] Phone Care Team Providers Care Training And Development Coordinator Name Role Phone Alejandro Fitzpatrick MD Primary Care Provider Kati Schwartz CMA Unavailable Generic Provider, No Assigned Pcp Primary Car e Provider Unavailable Alejandro Fitzpatrick MD Primary Care Provider Elva Lowe MA Unavailable [phone] Carole Huertas PEN RIDER-LIBRARY PARAPROFESSIONAL Primary Care Prov ider Generic Provider, No Assigned Pcp Primary Car e Provider Unavailable Encounter Details Date Type Department Care Team (Late st Contact Info) Description 04/22/2024 Scanned Document [facility] Internal Medicine [address] [place] [phone] Aleksandar Gonzalez MA Social History Tobacco Use Types Packs/Day Years [...] from your doctor or pharmacy? Never 01/28/2024 [facility] Utilities Answer Date Recorded In the past 12 months has e [employer], gas, oil, or water [employer] threatened to shut off services in your [...] How often do you attend chur or confucianist services? Never 01/28/2024 Do you belong to any clubs o r organizations such as baptist groups, unions, fraternal or athletic groups, or [...] Patient Health Questionnaire-2 Score 0 03/03/2024 [facility] - Occupational Stress [...] any time in the past 12 m [facility], were you homeless or living in a chcf (including now)? No 01/28/2024 Comments No Sex [...] suspected to have Coronavirus/COVID-19? No / Unsure 04/23/2024 8:05 PM EST documented as of this encounter Functional Status * Are you deaf or do you have serious difficulty hearing? Answer Date of Assessment Author No 01/03/2024 3:34 PM David Hernandez RN * Are you blind or do [...] of Assessment Author No 01/03/2024 3:34 PM David Hernandez RN * Because of a physical, mental, or emotional condition, do you have serious difficulty doing errandsalone such as visiting the doctor? Answer Date of Assessment Author No 01/03/2024 3:34 PM EDDavid Zheng RN * Calculated C-SSRS Risk Score (Lifetime/Recent) Answer Date of Assessment Author No Risk Indicated 04/23/2024 8:05 PM Yue Banegas RN * [place] Suicide Severity Rating Scale (Screener/Recent Self-Report) Question Answer Date of Assessment Author 1. Wish to be (Past 1 Month) No 025 8:05 PM Yue Banegas RN 2. Non-Specific Active Suici barbara Thoughts (Past 1 Month) No 04/23/2024 8:05 PM Nhi Banegas RN 6. Suicidal Behavior (Lifetime) No 5 8:05 PM Yue Banegas RN documented as of this encounter Mental [...] Description 10/20/2024 8:30 AM EDT Office Visit [facility] Neurosurgery [address] [place] [phone] Jori Harman MD PhD [address] [place] [address] documented as of this encounter Visit Diagnoses Not on filedocumented in this encounter Additional Health Concerns Assessment Noted Time A fall risk assessment has been complete d for the patient 03/30/2024 11:43 AM EST documented as of this encounter Care Teams Training And Development Coordinator Relationship Specialty Start Date End Date Alejandro Fitzpatrick MD [address] [facility] [address] [place] [address] PCP - General Internal Medicine 01/01/24 05/14/24 Generic Provider, [place] [address] PCP - General Foot Miter Operator 05/15/24 05/25/24 Alejandro Fitzpatrick MD [address] [address] PCP - General Internal Medicine 05/26/24 06/22/24 Carole Huertas, PEN RIDER-LIBRARY PARAPROFESSIONAL PCP - General Family Medicine 06/23/24 06/26/24 Generic Provider, No [place] [address] PCP - General Foot Miter Operator 06/27/24 Kati Schwartz CMA Group Sales CoordinatorLpn Or Medical Assistant 05/04/24 05/18/24 Elva Lowe MA Group Sales CoordinatorLpn Or Medical Assistant 06/15/24 07/16/24 documented as of this encounter
--- OUTSIDE RECORDS SUMMARY | 2024-09-29 20:58 | XMS_ITS | Encounter Summary ---
Author Organization [facility] Address [address] [place] [address] Phone Care Team Providers Care Side Seam Envelope Machine Operator Name Role Phone Alejandro Fitzpatrick MD Primary Care Provider Elva Lowe MA Unavailable [phone] Carole Huertas APRN-EDUCATION ASSOCIATE Primary Care Prov ider Generic Provider, No Assigned Pcp Primary Car e Provider Unavailable Encounter Details Date Type Department Care Team (Late st Contact Info) Description 06/11/2024 Scanned Document [facility] Internal Medicine [address] [facility] [address] [place] [phone] Alejandro Fitzpatrick MD [address] [facility] [address] [place] [address] Social History Tobacco Use Types Packs/Day Years [...] from your doctor or pharmacy? Never 06/12/2024 [facility] Utilities Answer Date Recorded In the past [...] How often do you attend chur or taoism services? Never 06/12/2024 Do you belong to any clubs o r organizations such as lutheran groups, unions, fraternal or athletic groups, or [...] Recorded Patient Health Questionnaire-2 Score 0 06/12/2024 [facility] - [...] any time in the past 12 m [facility], were you homeless or living in a long term (including now)? No 06/12/2024 Comments No Sex [...] 1:36 PM EDT Raquel Gabriel RN * Are you deaf or do you [...] 3:34 PM EDT David Daly RN * Over the past 2 weeks, how often have you been bothered by any of the following problems? Question Answer Date of Assessment Author Patient Health Questionnaire -2 Score 0 06/12/2024 1:36 PM EDT Raquel Gabriel RN * Calculated C-SSRS Risk Score (Lifetime/Recent) Answer Date of Assessment Author No Risk Indicated 06/12/2024 4:08 AM EDT Meri Abbott RN * [place] Suicide Severity Rating Scale (Screener/Recent Self-Report) Question Answer Date of Assessment Author 1. Wish to be (Past 1 Month) No 06/12/2024 4:08 AM EDT Meri Molina RN 2. Non-Specific Active Suicidal Thoughts (Past 1 Month) No 06/12/2024 4:08 AM EDT Meri Molina RN 6. Suicidal Behavior (Lifetime) No 06/12/2024 4:08 AM EDT Meri Molina RN * Question Answer Date of Assessment Author Little interest or pleasure in doing things Not at all 06/12/2024 1:36 PM EDT Raquel Gabriel RN Feeling down, depressed, or hopeless Not at all 06/12/2024 1:36 PM EDT Raquel Gabriel RN documented as of this encounter Mental [...] 10/20/2024 8:30 AM EDT Office Visit [facility] Neurosurgery [address] [place] [address] Jori Harman MD PhD [address] [facility] [address] [place] [address] documented as of this encounter Visit Diagnoses Not on filedocumented in this encounter Additional Health Concerns Assessment Noted Time A fall risk assessment has been complete d for the patient 05/05/2024 2:38 PM EST documented as of this encounter Care Teams Side Seam Envelope Machine Operator Relationship Specialty Start Date End Date Alejandro Fitzpatrick MD [address] [facility] [address] [place] [address] PCP - General Internal Medicine 05/26/24 06/22/24 Carole Huertas, COMMISSIONED FIRE OFFICER-EDUCATION ASSOCIATE PCP - General Family Medicine 06/23/24 06/26/24 Generic Provider, No [place] [address] PCP - General Pulley Maintainer 06/27/24 Elva Lowe MA Manager NursingBusiness Systems Advisor 06/15/24 07/16/24 documented as of this encounter
--- OUTSIDE RECORDS SUMMARY | 2024-09-29 20:58 | XMS_ITS | Clinical Summary ---
Author Organization [facility] Address [address] [place] [address] Phone Care Team Providers Care Boom Boss Name Role Phone Generic Provider, No Assigned Pcp MD Primary Car e Provider Unavailable Allergies Active Allergy Reactions Criticality Noted Date Comments Acetaminophen Unknown,Other 12/27/2023 History of stage III liver fibrosis Liver failure. Diclofenac Hives 01/26/2024 Gabapentin Headache,Unknown 12/09/2023 Leg swelling Hydrocodone Hives,Unknown,Rash Medium 01/30/2014 Nabumetone Nausea/vomiting,Rash Low 01/15/2023 Penicillins Hives,Unknown Medium 01/15/2023 Reported hives as a child. Prescribed cephalexin September 2023 and reported itching only (no rash/hives). Also reports having taken amoxicillin in the past and tolerated. Pregabalin Swelling,Unknown 02/06/2024 BLE Medications albuterol 90 mcg/actuation aerosol powdr breath activated inhalerIndicatio ns:Chronic pain syndrome Inhale 2 puffs every 4 hours if needed for wheezing or shortness of breath. 1 each Active omeprazole (PriLOSEC) [address] Da Silva ns:Chronic pain syndrome Take 2 capsules (40 mg) by mouth once daily in the morning. Take before meals. Do not crush or chew. 60 capsule 5 Active cyclobenzaprine (Flexeril) 10 mg tabletIndication s:Back pain with radiation Take 1 tablet (10 mg) by mouth 3 times a day as needed (back pain). 90 tablet 2 5 Active DULoxetine (Cymbalta) [address] capsuleIndicatio ns:Back pain with radiation Take 1 capsule (20 mg) by mouth once daily at bedtime. Do not crush or chew. 30 capsule 2 5 Active polyethylene glycol (Glycolax, Miralax) 17 gram packetIndication s:Back pain with radiation Take 17 g by mouth once daily. 30 each 2 5 Active Additional Information Patient taking differently:17 g oralDaily PRN, constipation, Informant: Self, Reported on 06/12/2024 hydrOXYzine HCL (Atarax) 25 mg tablet Take 1 tablet (25 mg) by mouth 4 times a day as needed for anxiety. Active zolpidem (Ambien) 10 mg tablet Take 1 tablet (10 mg) by mouth once daily at bedtime. Active SUMAtriptan (Imitrex) 50 mg tabletIndication s:Back pain, unspecified back location, unspecified back pain laterality, unspecified chronicity,Acute on chronic back pain,Chronic low back pain with left-sided sciatica, unspecified back pain laterality,Back pain with radiation,Lumbar disc herniation with radiculopathy,Ch ronic low back pain without sciatica, unspecified back pain laterality,Mireya nuous opioid dependence (Multi) Take 1 tablet (50 mg) by mouth every 2 hours if needed for migraine. May repeat dose once in 2 hours if no relief. Do not exceed 2 doses in 24 hours. 5 tablet 06/14/2024 11:49 AM EDT 5 Active topiramate (Topamax) 25 mg tabletIndication s:Back pain, unspecified back location, unspecified back pain laterality, unspecified chronicity,Acute on chronic back pain,Chronic low back pain with left-sided sciatica, unspecified back pain laterality,Back pain with radiation,Lumbar disc herniation with radiculopathy,Ch ronic low back pain without sciatica, unspecified back pain laterality,Mireya nuous opioid dependence (Multi) Take 1 tablet (25 mg) by mouth 2 times a day. 60 tablet 06/14/2024 11:49 AM EDT 5 Active naloxone (Narcan) 4 mg/0.1 mL nasal sprayIndications :opioid overdose,opioid- induced respiratory depression Administer 1 spray (4 mg) into affected nostril(s) if needed for opioid reversal or respiratory depression. May repeat every 2-3 minutes if needed, alternating nostrils, until medical assistance becomes available. 2 each 06/14/2024 11:49 AM EDT 5 Active oxyCODONE (Roxicodone) 5 mg immediate release tabletIndication s:Back pain, unspecified back location, unspecified back pain laterality, unspecified chronicity,Acute on chronic back pain,Chronic low back pain with left-sided sciatica, unspecified back pain laterality,Back pain with radiation,Lumbar disc herniation with radiculopathy,Ch ronic low back pain without sciatica, unspecified back pain laterality,Mireya nuous opioid dependence (Multi) Take 1 tablet (5 mg) by mouth every 6 hours if needed for moderate pain (4 - 6). 15 tablet 5 Active lidocaine 4 % patchIndications :Chronic back pain greater than [address] 1 patch over 12 hours on the skin once daily as needed (back pain). Remove & discard patch within 12 hours or as directed by MD. 20 patch 5 Active Active Problems Problem Noted Date Diagnosed Date Acute on chronic back pain 06/12/2024 Chronic low back pain with l eft-sided sciatica, unspecified back pain laterality 05/01/2024 Assessment & Plan (05/01/2024 12:43 PM EST): 49 y.o. F w/PMHx recent L4-L5 MIS discectomy 01/2024 and subsequent recent numerous ED visits for back pain, who presented to ED with acute on chronic back pain. HDS. Appears back pain preceded recent surgery; however pain has worsened significantly since operation. Ddx for worsening pain: cauda equina (less likely, no saddle anesthesia, numbness, B/B incontinence) vs infection (also less likely given benign CRP and mildly elevated ESR, no leukocytosis) vs new mechanical spondylolisthesis vs post-op complication (less likely, recent CT and L spine with improved size of post-op seroma) vs T2 hyperintense lesion noted on MRI L spine 04/24. Contacted NSGY who is deciding on whether further imaging is warranted for this - does not appear this cyst vs nerve sheath tumor has been seen on prior imaging. If T2 lesion deemed not to be source of pain, patient will likely need another SCS. Will pursue pain control, patient understands that we will be unlikely to control all of her symptoms, but is appreciative of our efforts. Rest of medical problems below. #Acute on chronic back pain #Recent L4-L5 discectomy -NSGY consulted, appreciate recs about further imaging to characterize T2 lesion on MRI L spine -already has FU with Dr. Woodard for 05/05, NSGY will coordinate FU with Dr. Adams -pain control: does not want Tylenol due history of liver fibrosis or gabapentin per allergy. Will precede with Flexeril 10 TID, lidocaine patch, scheduled Toradol 30 q6h (can stop if not improving), oxy 5 q4h prn moderate pain, oxy 10 q6h prn severe pain, IV 0.5 dilaudid breakthrough q3h -consider acute pain management consult in AM if not improving -PT/OT (though patient limited due to pain) #GERD -c/w home PPI #Depression -has been off fluoxetine for long time per patient #?HTN -was prescribed coreg as outpatient, discontinued since patient did not tolerate due to AE -will control pain inpatient, this is likely playing a role in elevated BP readings #Tobacco use -6 cigarettes per day x35 years -denies nicotine patch F: prn E: prn N: regular A: pIV DVT PPx: lovenox 40 GI PPx: home PPI CODE STATUS: FULL (confirmed on admission) SURROGATE DECISION MAKER: Avery (evin ) [phone] Back pain with radiation 01/27/2024 Chronic pain syndrome 01/27/2024 Lumbar disc herniation with radiculopathy 2023 Chronic low back pain withou t sciatica, unspecified back pain laterality 01/06/2024 Lumbar radiculopathy, acute 01/03/2024 Hepatic fibrosis, advanced fibrosis 12/24/2023 Assessment & Plan (12/24/2023 12:59 PM EDT): This patient has HCV with advanced fibrosis [...] your total body weight over 6-12 months 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 12/24/2023 Acute bilateral low back pain without sciatica 0 11/13/2023 Wound dehiscence 10/31/2023 Postoperative infection, uns pecified type, initial encounter 10/11/2023 Anxiety 09/23/2023 Depression 09/23/2023 Morbid obesity (Multi) 09/23/2023 Chronic low back pain 09/23/2023 Chronic back pain greater than 3 months duration 07/18/2023 Neuropathic pain 07/18/2023 Continuous opioid dependence (Multi) 04/01/2023 Current smoker 01/20/2023 Overview (01/20/2023): Added secondary to documentation in Social History. Resolved Problems Problem Noted Date Diagnosed Date Resolved Date Chronic midline low back marily n without sciatica 05/16/2024 05/17/2024 Chronic hepatitis C without hepatic coma (Multi) 04/01/2023 12/24/2023 Assessment & Plan (04/01/2023 9:14 AM EST): This patient has chronic Hepatitis C infection [...] will see this patient in 6 weeks Encounters Date Type Department Care Team Description 08/28/2024 8:43 PM EDT - 08/29/2024 4:49 AM EDT Emergency [facility] Emergency Medicine [address] [place] [address] Flex Montemayor MD Rooney, Brittney E, MD Chronic left-sided low back pain with left-sided sciatica (Primary Dx) Discharge Disposition: Home 08/28/2024 Travel 07/20/2024 Orders Only [facility] [address] [place] [address] Nikhil Tubbs DO 07/06/2024 9:46 PM EDT - 07/07/2024 2:17 AM EDT Emergency [facility] Emergency Medicine [address] [place] [address] Flex Montemayor MD Marino, Ryan, MD Chronic left-sided low back pain, unspecified whether sciatica present (Primary Dx); Urinary incontinence, unspecified type Discharge Disposition: Home 07/06/2024 Travel 07/01/2024 Patient Outreach [facility] [address] [place] [address] Elva Lowe MA from Last 3 Months Family History Medical History Relation Name Comments Heart disease Father Lung cancer Father Lung disease Father COPD Mother Lung disease Mother Relation Name Status Comments Father Mother Social History Tobacco Use Types Packs/Day Years Used Date Smoking Tobacco: Every Day Cigarettes 0.5 33.5 Started: 1991 Smokeless Tobacco: Never Tobacco Cessation:Ready to Q uit: No; Counseling Given: Yes Alcohol Use Standard Drinks/Week Comments Never 0 (1 standard drink = 0.6 oz pur e alcohol) B1300 Health Literacy Answer Date Recor ded How often do you need to hav e someone help you when you read instructions, pamphlets, or other written material from your doctor or pharmacy? Never 06/12/2024 [facility] Utilities Answer Date Recorded In the past 12 months has e [employer], gas, oil, or water [employer] threatened to shut off services in your [...] How often do you attend chur or buddhist services? Never 06/12/2024 Do you belong to any clubs o r organizations such as mandaeism groups, unions, fraternal or athletic groups, or [...] Recorded Patient Health Questionnaire-2 Score 0 06/12/2024 [facility] - Occupational Stress Questionnaire Answer Date Recorded [...] any time in the past 12 [facility], were you homeless or living in a assisted (including now)? No 06/12/2024 Comments No Sex and Gender Information Value Date Recorded Sex Assigned at Female 08/21/2023 6:49 AM EDT Legal Sex Female 10:27 PM EDT Gender Identity Female 08/21/2023 6:49 AM EDT Sexual Orientation Not on file Last Filed Vital Signs Vital Sign Reading Time Taken Comments Blood Pressure 169/86 08/29/2024 3:06 AM EDT Pulse 107 08/29/2024 3:06 AM EDT Temperature 36.5 C (97.7 F) 08/28/2024 8:39 PM EDT Respiratory Rate 20 08/29/2024 3:06 AM EDT Oxygen Saturation 98% 08/29/2024 3:06 AM EDT Inhaled Oxygen Concentration - - Weight 122 kg (268 lb) 08/28/2024 8:39 PM EDT Height 160 cm (5' 3 ) 08/28/2024 8:39 PM EDT Body Mass Index 47.47 08/28/2024 8:39 PM EDT Plan of Treatment Upcoming Encounters Date Type Department Care Team (Late st Contact Info) Description 10/20/2024 8:30 AM EDT Office Visit [facility] Neurosurgery [address] [facility] [address] [place] [id number] Jori Harman MD PhD [address] [place] [address] Health Maintenance Due Date Last Done Comments CT Colonography 1977 FIT-DNA (Cologuard) 1977 FIT 1977 Lipid Panel 1977 Sigmoidoscopy 1977 Yearly Adult Physical 1977 MMR Vaccines (1 of 1 - Standard series) 1978 Hepatitis A Vaccines (1 of 2 - Risk 2-dose series) 1996 Pneumococcal Vaccine: Pediatrics and At-Risk Adult Patients (1 of 2 - PCV) 1996 DTaP/Tdap/Td Vaccines (1 - Tdap) 1999 Mammogram 2017 Hepatitis B Vaccines (2 of 2 - CpG 2-dose series) 05/24/2023 04/26/2023 COVID-19 Vaccine (2 - season) 2023 07/03/2020 Influenza Vaccine (#1) 2024 Diabetes Screening 08/28/2025 08/28/2024, 0 07/06/2024, 06/28/2024, Additional history exists Zoster Vaccines (1 of 2) 2027 Colonoscopy 03/30/2032 03/30/2022 Colorectal Cancer Screening 03/30/2032 HIV Screening Completed 04/01/2023 HIB Vaccines Aged Out No longer eligi ble based on patient's age to complete this topic HPV Vaccines (No Doses Required) Completed IPV Vaccines Aged Out No longer eligi ble based on patient's age to complete this topic Meningococcal Vaccine Aged Out No cassie stan eligible based on patient's age to complete this topic Rotavirus Vaccines Aged Out No longer eligible based on patient's age to complete this topic Medical Devices Implanted Type Area Short Order Fry Cook Device Identifier Shelf Expiration Date Model / Serial / Lot Eterna Implantable Pulse Generator Implanted:Qty: 1 on 09/23/2023 by Elke Adams MD at [facility] Implant Left: Back [employer] 08/29/2025 [id number] / [id number] / Description:System cost incl udes: Generator - [id number] Vehicle Fuel Systems Converter - [id number] Vehicle Fuel Systems Converter Kit, Lumbar - [id number] Patient Magnet - 1210 Eterna Manual with Virtual Clinic - 71797 Patient Controller - [id number] Lead, Octrode - [id number] - [id number] Implanted:Qty: 1 on 08/21/2023 by Elke Adams MD at [facility] Spinal Hardware N/A: Spine Lumbar [employer] 05/08/2025 [id number] / [id number] / N/A Lead, Octrode 60cm - [id number] - [id number] Implanted:Qty: 1 on 09/23/2023 by Elke Adams MD at [facility] Spinal Hardware N/A: Back [employer] 05/31/2025318522518 / Lead, Octrode 60cm - [id number] - [id number] Implanted:Qty: 1 on 09/23/2023 by Elke Adams MD at [facility] Spinal Hardware N/A: Back [employer] 07/08/20253185508 / Lead, Octrode 60cm - [id number] - [id number] Implanted:Qty: 1 on 09/23/2023 by Elke Adams MD at [facility] Spinal Hardware N/A: Back [employer] 07/08/20253185219 / Procedures Procedure Name Priority Date/Time Associated Diagnosis Comments MR LUMBAR SPINE WO CONTRAST STAT 08/29/2024 2:[address] LUMBAR SPINE WO IV CONTRAST STAT 08/28/2024 11:05 PM EDT BASIC METABOLIC PANEL STAT 08/28/2024 10:35 PM EDT CBC STAT 08/28/2024 10:35 PM EDT NON-[facility] HIE TROPONIN 9 HR. Routine 07/20/2024 8:29 PM EDT XR CHEST 1 VIEW 07/20/2024 7:26 PM EDT [facility] BNP Routine 07/20/2024 7:21 PM EDT [facility] TROPONIN 0 HR. Routine 07/20/2024 7:21 PM EDT [facility] EGFR Routine 07/20/2024 7:21 PM EDT [facility] BMP Routine 07/20/2024 7:21 PM EDT [facility] PT & PTT Routine 07/20/2024 7 :21 PM EDT [facility] H[facility] CBC W/ AUTO DIFF Routine 07/20/2024 7:21 PM EDT COAGULATION SCREEN STAT 07/06/2024 10 :25 PM EDT TYPE AND SCREEN STAT 07/06/2024 10:18 PM EDT COMPREHENSIVE METABOLIC PANEL STAT 07/06/2024 10:18 PM EDT HIV 1/2 ANTIGEN/ANTIBODY SCREEN WIH REFLEX TO CONFIRMATION Routine 04/01/2023 9:02 AM EST Chronic hepatitis C without hepatic coma (Multi) from Last 3 Months or Most Recently Relevant to Health Maintenance Results * MR lumbar spine wo IV contrast (08/29/2024 2:34 AM EDT) Anatomical Region Laterality Modality Neuro Magnetic Resonan ce 08/29/2024 3:17 AM EDT 08/29/2024 3:30 AM EDT Impressions 08/29/2024 3:29 AM EDT 1. Unchanged subarticular disc herniation at L4-5, status post laminectomy, with moderate bilateral neuroforaminal stenosis. No new spinal canal stenosis or neuroforaminal stenosis. 2. Ongoing slight interval involution of T2 hyperintense collection in the subcutaneous fat slightly to the left of midline, overlying the posterior elements of the L4. STIR hyperintense edema in the paraspinal musculature overlying the left L5 and sacrum is also similar in appearance to prior exam. No evidence of new areas of STIR hyperintense edema or new fluid collections. I personally reviewed the images/study and I agree with the findings as stated by Resident Derik Lazo. MACRO: None Signed by: Bernadette Tapia 08/29/2024 3:29 AM Dictation workstation: [id number] Narrative 08/29/2024 3:29 AM EDT Interpreted By: Bernadette Tapia, and Ebai Jerky STUDY: MR LUMBAR SPINE WO IV CONTRAST; 08/29/2024 2:34 am INDICATION: Signs/Symptoms:hx of spinal stenosis, significant weakness to left leg. COMPARISON: CT lumbar spine 08/28/2024. MRI lumbar spine 06/27/2024. ACCESSION NUMBER(S): [id number] ORDERING CLINICIAN: FLEX MONTEMAYOR TECHNIQUE: Sagittal T1, T2, STIR, axial T1 and T2 weighted images of the lumbar spine were acquired. The lower lumbar spine axial T2 sequence is degraded by motion artifact. FINDINGS: There are 5 non rib-bearing lumbar vertebral bodies. The lowest intervertebral disc will be labeled L5-S1. Alignment: The vertebral alignment is maintained. Vertebrae/Intervertebral Discs: The vertebral bodies demonstrate expected height. The marrow signal is within normal limits. No acute fracture. No suspicious marrow replacing lesions. Similar appearing mild L4-L5 disc height loss with Modic type 1 changes. Edema extends into the left L5 pedicle, likely reactive. Conus medullaris: The lower thoracic cord appears unremarkable. The conus medullaris terminates at L2. T12-L1: There is no significant spinal canal or neural foraminal stenosis. L1-2: There is no significant spinal canal or neural foraminal stenosis. L2-3: There is no significant spinal canal or neural foraminal stenosis. L3-4: Tiny disc bulge, mild facet arthrosis and prominent dorsal epidural fat. There is no significant spinal canal or neural foraminal stenosis. L4-5: Left-sided laminectomy. Stable disc osteophyte complex with a superimposed left subarticular/foraminal disc herniation without significant spinal canal stenosis. There is effacement of the left subarticular recess and likely abuts the traversing left L5 nerve root. Unchanged moderate bilateral neuroforaminal stenosis. L5-S1: Small disc bulge and marked facet arthrosis. There is no significant spinal canal or neural foraminal stenosis. There is ongoing slight involution of T2 hyperintense fluid collection in the subcutaneous fat overlying the left posterolateral aspect of the L4 vertebral body, not well visualized on current exam due to motion. STIR hyperintense edema is present in the paraspinal musculature overlying L5 in the sacrum in the left, similar to prior exam. No new fluid collections or new areas of STIR hyperintense soft tissue edema are identified. Procedure Note Bernadette Tapia MD - 08/29/2024 Interpreted By: Bernadette Tapia and Ebai Jerky STUDY: MR LUMBAR SPINE WO IV CONTRAST; 08/29/2024 2:34 am INDICATION: Signs/Symptoms:hx of spinal stenosis, significant weakness to left leg. COMPARISON: CT lumbar spine 08/28/2024. MRI lumbar spine 06/27/2024. ACCESSION NUMBER(S): [id number] ORDERING CLINICIAN: FLEX MONTEMAYOR TECHNIQUE: Sagittal T1, T2, STIR, axial T1 and T2 weighted images of the lumbar spine were acquired. The lower lumbar spine axial T2 sequence is degraded by motion artifact. FINDINGS: There are 5 non rib-bearing lumbar vertebral bodies. The lowest intervertebral disc will be labeled L5-S1. Alignment: The vertebral alignment is maintained. Vertebrae/Intervertebral Discs: The vertebral bodies demonstrate expected height. The marrow signal is within normal limits. No acute fracture. No suspicious marrow replacing lesions. Similar appearing mild L4-L5 disc height loss with Modic type 1 changes. Edema extends into the left L5 pedicle, likely reactive. Conus medullaris: The lower thoracic cord appears unremarkable. The conus medullaris terminates at L2. T12-L1: There is no significant spinal canal or neural foraminal stenosis. L1-2: There is no significant spinal canal or neural foraminal stenosis. L2-3: There is no significant spinal canal or neural foraminal stenosis. L3-4: Tiny disc bulge, mild facet arthrosis and prominent dorsal epidural fat. There is no significant spinal canal or neural foraminal stenosis. L4-5: Left-sided laminectomy. Stable disc osteophyte complex with a superimposed left subarticular/foraminal disc herniation without significant spinal canal stenosis. There is effacement of the left subarticular recess and likely abuts the traversing left L5 nerve root. Unchanged moderate bilateral neuroforaminal stenosis. L5-S1: Small disc bulge and marked facet arthrosis. There is no significant spinal canal or neural foraminal stenosis. There is ongoing slight involution of T2 hyperintense fluid collection in the subcutaneous fat overlying the left posterolateral aspect of the L4 vertebral body, not well visualized on current exam due to motion. STIR hyperintense edema is present in the paraspinal musculature overlying L5 in the sacrum in the left, similar to prior exam. No new fluid collections or new areas of STIR hyperintense soft tissue edema are identified. IMPRESSION: 1. Unchanged subarticular disc herniation at L4-5, status post laminectomy, with moderate bilateral neuroforaminal stenosis. No new spinal canal stenosis or neuroforaminal stenosis. 2. Ongoing slight interval involution of T2 hyperintense collection in the subcutaneous fat slightly to the left of midline, overlying the posterior elements of the L4. STIR hyperintense edema in the paraspinal musculature overlying the left L5 and sacrum is also similar in appearance to prior exam. No evidence of new areas of STIR hyperintense edema or new fluid collections. I personally reviewed the images/study and I agree with the findings as stated by Resident Derik Lazo. MACRO: None Signed by: Bernadette Tapia 08/29/2024 3:29 AM Dictation workstation: [id number] Flex Montemayor MD IMG MRI PROCEDURES Final Resul t * CT lumbar spine wo IV contrast (08/28/2024 11:05 PM EDT) Anatomical Region Laterality Modality Neuro Computed Tomogra phy 08/28/2024 11:2 5 PM EDT 08/28/2024 11:25 PM EDT Impressions 08/28/2024 11:23 PM EDT No acute fracture or traumatic subluxation of the lumbar spine. Postsurgical and degenerative changes as described above at L4/L5 MACRO: None. Signed by: Tomás Hercules 08/28/2024 11:23 PM Dictation workstation: [id number] Narrative 08/28/2024 11:23 PM EDT Interpreted By: Tomás Hercules, STUDY: CT LUMBAR SPINE WO IV CONTRAST; 08/28/2024 11:05 pm INDICATION: Signs/Symptoms:chronic low back pain, worse lower lumbar spine pain, assess for bony abnormality. COMPARISON: MR lumbar spine 06/28/2024. CT lumbar spine 04/23/2024 ACCESSION NUMBER(S): [id number] ORDERING CLINICIAN: FLEX MONTEMAYOR TECHNIQUE: Axial noncontrast CT images of the lumbar spine with coronal and sagittal reconstructed images. FINDINGS: ALIGNMENT: Normal lordotic curvature of the lumbar spine. No traumatic malalignment. VERTEBRAE: No acute loss of vertebral body height. Postsurgical changes of L4 laminectomy. DISC SPACES: Disc space narrowing with vacuum disc phenomena at L4/L5. Disc space narrowing at L5/S1. SPINAL CANAL: Posterior disc osteophyte complex at L4/L5 status post L4 laminectomy without severe central narrowing. There is moderate right and [id number] left foraminal narrowing at the L4/L5 level. PREVERTEBRAL SOFT TISSUES: No prevertebral soft tissue swelling. Redemonstrated soft tissue thickening and possibly fluid in the left back soft tissues corresponding to abnormality seen on prior MR. OTHER FINDINGS: Low-density 1.9 cm left adrenal nodule favored to represent adenoma. Procedure Note Tomás Hercules MD - 08/28/2024 Interpreted By: Tomás Hercules, STUDY: CT LUMBAR SPINE WO IV CONTRAST; 08/28/2024 11:05 pm INDICATION: Signs/Symptoms:chronic low back pain, worse lower lumbar spine pain, assess for bony abnormality. COMPARISON: MR lumbar spine 06/28/2024. CT lumbar spine 04/23/2024 ACCESSION NUMBER(S): [id number] ORDERING CLINICIAN: FLEX MONTEMAYOR TECHNIQUE: Axial noncontrast CT images of the lumbar spine with coronal and sagittal reconstructed images. FINDINGS: ALIGNMENT: Normal lordotic curvature of the lumbar spine. No traumatic malalignment. VERTEBRAE: No acute loss of vertebral body height. Postsurgical changes of L4 laminectomy. DISC SPACES: Disc space narrowing with vacuum disc phenomena at L4/L5. Disc space narrowing at L5/S1. SPINAL CANAL: Posterior disc osteophyte complex at L4/L5 status post L4 laminectomy without severe central narrowing. There is moderate right and [id number]-[id number] left foraminal narrowing at the L4/L5 level. PREVERTEBRAL SOFT TISSUES: No prevertebral soft tissue swelling. Redemonstrated soft tissue thickening and possibly fluid in the left back soft tissues corresponding to abnormality seen on prior MR. OTHER FINDINGS: Low-density 1.9 cm left adrenal nodule favored to represent adenoma. IMPRESSION: No acute fracture or traumatic subluxation of the lumbar spine. Postsurgical and degenerative changes as described above at L4/L5 MACRO: None. Signed by: Tomás Hercules 08/28/2024 11:23 PM Dictation workstation: [id number] Flex Montemayor MD IMG CT PROCEDURES Final Result * CBC (08/28/2024 10:35 PM EDT) WBC 8.9 4.4 - 11.3 x10*3/uL LAB HEMATOLOGY METHOD 08/28/2024 11:42 PM EDT [facility] nRBC 0.0 0.0 - 0.0 /100 WBCs LAB HEMATOLOGY METHOD 08/28/2024 11:42 PM EDT [facility] RBC 4.91 4.00 - 5.20 x10*6/uL LAB HEMATOLOGY METHOD 08/28/2024 11:42 PM EDT [facility] Hemoglobin 13.9 12.0 - 16.0 g/dL LAB HEMATOLOGY METHOD 08/28/2024 11:42 PM EDT [facility] Hematocrit 42.3 36.0 - 46.0 % LAB HEMATOLOGY METHOD 08/28/2024 11:42 PM EDT [facility] MCV 86 80 - 100 fL LAB HEMATOLOGY METHOD 08/28/2024 11:42 PM EDT [facility] MCH 28.3 26.0 - 34.0 pg LAB HEMATOLOGY METHOD 08/28/2024 11:42 PM EDT [facility] MCHC 32.9 32.0 - 36.0 g/dL LAB HEMATOLOGY METHOD 08/28/2024 11:42 PM EDT [facility] RDW 14.1 11.5 - 14.5 % LAB HEMATOLOGY METHOD 08/28/2024 11:42 PM EDT [facility] Platelets 344 150 - 450 x10*3/uL LAB HEMATOLOGY METHOD 08/28/2024 11:42 PM EDT [facility] Blood Venous blood specimen / Unknown Venipuncture / Unknown 08/28/2024 10:35 PM EDT 08/28/2024 11:31 PM EDT Flex Montemayor MD LAB BLOOD ORDERABLES Final Res ult [facility] [id number] [facility] [address] [place] [address] * (ABNORMAL) Basic metabolic panel (08/28/2024 10:35 PM EDT) Glucose 107(H) 74 - 99 mg/dL LAB CHEMISTRY METHOD 08/29/2024 12:05 AM EDT [facility] Sodium 139 136 - 145 mmol/L LAB CHEMISTRY METHOD 08/29/2024 12:05 AM EDT [facility] Potassium 4.1 3.5 - 5.3 mmol/L LAB CHEMISTRY METHOD 08/29/2024 12:05 AM EDT [facility] Comment:MILD HEMOLYSIS DETEC RADHAMES. The result may be falsely elevated due to hemolysis or other interferents. Clinical correlation is recommended. Repeat testing may be considered. Chloride 107 98 - 107 mmol/L LAB CHEMISTRY METHOD 08/29/2024 12:05 AM EDT [facility] Bicarbonate 21 21 - 32 mmol/L LAB CHEMISTRY METHOD 08/29/2024 12:05 AM EDT [facility] Anion Gap 15 10 - 20 mmol/L LAB CHEMISTRY METHOD 08/29/2024 12:05 AM EDT [facility] Urea Nitrogen 11 6 - 23 mg/dL LAB CHEMISTRY METHOD 08/29/2024 12:05 AM EDT [facility] Creatinine 0.71 0.50 - 1.05 mg/dL LAB CHEMISTRY METHOD 08/29/2024 12:05 AM EDT [facility] eGFR >90 >60 mL/min/1. 73m*2 LAB CHEMISTRY METHOD 08/29/2024 12:05 AM EDT [facility] Comment: Calculations of estimated GFR are performed using the 2020 CKD-EPI Study Refit equation without the race variable for the IDMS-Traceable creatinine methods. https://jasn.asnjournals.org/content/early//ASN.2690505040 Calcium 8.9 8.6 - 10.6 mg/dL LAB CHEMISTRY METHOD 08/29/2024 12:05 AM EDT [facility] Blood Venous blood specimen / Unknown Venipuncture / Unknown 08/28/2024 10:35 PM EDT 08/28/2024 11:31 PM EDT Flex Montemayor MD LAB BLOOD ORDERABLES Final Res ult [facility] [address] [facility] [id number] [place], [place] [id number] * (ABNORMAL) [facility] HIE Troponin 9 Hr. (07/20/2024 8:29 PM EDT) NON-[facility] HIE TROPONIN 3.20(L) 10.10 - 27.10 pg/mL [facility] Comment:The 95% CI (Confiden ce Interval) PPV (Positive Predictive Value) for myocardial infarction in females is 38 pg/mL, in males 51 pg/mL. The results should be used in conjunction with clinical conditions of myocardial infarction.(Access High Sensitivity Troponin I Instructions For Use, [employer], October 2017) [facility] Lab- Blood 07/20/2024 8 :29 PM EDT us Nikhil Tubbs DO LAB BLOOD ORDERABLES Final Resu lt Performing Organization Address City/[facility]/ZIP Co de Phone Number [facility] [address] [place] [address], [place] * XR chest 1 view (07/20/2024 7:26 PM EDT) Anatomical Region Laterality Modality Thoracic, Chest Radiographic Ekaterina ging 07/20/2024 7:26 PM EDT Narrative 07/21/2024 8:03 AM EDT Exam Date/Time: 07/20/2024 19:47 EDT Reason for Exam: Chest pain Report IMPRESSION: NO RADIOGRAPHIC EVIDENCE OF ACUTE INTRATHORACIC PROCESS. EXAM: XR Chest Single View History: Chest pain Technique: Portable AP view of the chest. Comparison: 02/29/2024 Findings: Suboptimal inspiration. The cardiomediastinal silhouette is within normal limits. No pneumothorax, pleural effusion, or consolidation. No acute osseous abnormality. Ordering Provider: Nikhil Tubbs FINAL REPORT Dictated: 07/21/2024 8:00 am Toney Mccoy DO Signed (Electronic Signature): 07/21/2024 8:00 am Signed by: Toney Mccoy DO Transcribed by: DP Technologist: LIZBETH us Nikhil M Arley DO IMG XR PROCEDURES Final Result * (ABNORMAL) [facility] HIE CBC w/ Auto Diff (07/20/2024 7:21 PM EDT) [facility] HIE LEUKOCYTES 7.3 4.0 - 11.0 E9/L [facility] NON-[facility] HIE ERYTHROCYTES:NCNC :PT:BLD:QN:AUTOMA RADHAMES COUNT 4.0(L) 4.3 - 5.9 E12/L [facility] NON-[facility] HIE HEMOGLOBIN:MCNC:P T:BLD:QN: 12.1 12.0 - 16.0 gm/dL [facility] NON-[facility] HIE HEMATOCRIT:VFR:PT :BLD:QN:AUTOMATED COUNT 35.3 34.0 - 46.0 % [facility] NON-[facility] HIE ERYTHROCYTE DISTRIBUTION WIDTH:RATIO:PT:RB C:QN:AUTOMATED COUNT 14.7(H) 10.9 - 14.2 % [facility] NON-[facility] HIE ERYTHROCYTE MEAN CORPUSCULAR HEMOGLOBIN:ENTMAS S:PT:RBC:QN:AUTOM A 30.1 27.0 - 34.0 pg [facility] NON-[facility] HIE ERYTHROCYTE MEAN CORPUSCULAR HEMOGLOBIN CONCENTRATION:MCN C:PT:RB 34.2 31.4 - 36.0 gm/dL [facility] NON-[facility] HIE ERYTHROCYTE MEAN CORPUSCULAR VOLUME:ENTVOL:PT: RBC:QN:AUTOMATED C 88.0 80.0 - 100.0 fL [facility] NON-[facility] HIE PLATELET MEAN VOLUME:ENTVOL:PT: BLD:QN:AUTOMATED COUNT 8.2 6.4 - 10.8 fL [facility] NON-[facility] HIE PLATELET 274.0 150.0 - 500.0 E9/L [facility] HIE NEUTROPHILS/100 LEUKOCYTES:NFR:PT :BLD:QN: 59.9 36.0 - 75.0 % [facility] HIE LYMPHOCYTES:NCNC: PT:BLD:QN:AUTOMAT ED COUNT 28.2 14.0 - 50.0 % [facility] NON[facility] HIE MONOCYTES:NCNC:PT :BLD:QN:AUTOMATED COUNT 0.7 0.2 - 1.0 E9/L [facility] NON[facility] HIE EOSINOPHILS/100 LEUKOCYTES:NFR:PT :BLD:QN:AUTOMATED COUNT 2.0 0.0 - 8.0 % [facility] NON[facility] HIE BASOPHILS:NCNC:PT :BLD:QN:AUTOMATED COUNT 0.4 0.0 - 2.0 % [facility] HIE NEUTROPHILS:NCNC: PT:BLD:QN:AUTOMAT ED COUNT 4.4 2.0 - 7.5 E9/L [facility] HIE LYMPHOCYTES:NCNC: PT:BLD:QN: 2.1 1.0 - 4.0 E9/L [facility] HIE EOSINOPHILS:NCNC: PT:BLD:QN: 0.1 0.0 - 0.5 E9/L [facility] NON-[facility] HIE BASOPHILS/LEUKOCY VINCENT:NFR.DF:PT:BLD :QN:AUTOMATED COUNT 0.0 0.0 - 0.2 E9/L [facility] Lab- Blood 07/20/2024 7 :21 PM EDT us Nikhil Tubbs DO LAB BLOOD ORDERABLES Final Resu lt [facility] [address] [place] [address], [place] * (ABNORMAL) [facility] HIE BMP (07/20/2024 7:21 PM EDT) [facility] HIE GLUCOSE:MCNC:P T:SER/PLAS:QN: 139 55 - 199 mg/dL [facility] NON-[facility] HIE UREA NITROGEN:MCNC: PT:SER/PLAS:QN : 11 5 - 21 mg/dL [facility] NON-[facility] HIE CREATININE:MCN C:PT:SER/PLAS: QN: 0.8 0.5 - 1.3 mg/dL [facility] NON-[facility] HIE UREA NITROGEN/CREAT ININE:MRTO:PT: SER/PLAS:QN: 14 10 - 20 No Units [facility] NON-[facility] HIE CALCIUM:MCNC:P T:SER/PLAS:QN: 8.2(L) 8.9 - 11.1 mg/dL [facility] NON[facility] HIE SODIUM:SCNC:PT :SER/PLAS:QN: 135 135 - 145 mmol/L [facility] NON[facility] HIE POTASSIUM:SCNC :PT:SER/PLAS:Q N: 3.7 3.5 - 5.3 mmol/L [facility] NON[facility] HIE CHLORIDE:SCNC: PT:SER/PLAS:QN : 101 101 - 111 mmol/L [facility] NON-[facility] HIE CARBON DIOXIDE:SCNC:P T:SER/PLAS:QN: 27 21 - 31 mmol/L [facility] NON-[facility] HIE ANION GAP:SCNC:PT:SE R/PLAS:QN: 11 6 - 16 mEq/L [facility] Lab- Blood 07/20/2024 7 :21 PM EDT us Nikhil Tubbs DO LAB BLOOD ORDERABLES Final Resu lt Performing Organization Address [facility] [place] [address], * (ABNORMAL) [facility] HIE Troponin 0 Hr. (07/20/2024 7:21 PM EDT) [facility] HIE TROPONIN 3.30(L) 10.10 - 27.10 pg/mL [facility] Comment:The 95% CI (Confiden ce Interval) PPV (Positive Predictive Value) for myocardial infarction in females is 38 pg/mL, in males 51 pg/mL. The results should be used in conjunction with clinical conditions of myocardial infarction.(Access High Sensitivity Troponin I Instructions For Use, Katlyn Edson, October 2017) [facility] Lab- Blood 07/20/2024 7 :21 PM EDT us Nikhil Tubbs DO LAB BLOOD ORDERABLES Final Resu lt Performing Organization Address [facility]/ZIP Co de Phone Number [facility] [address] [place] [address], * NON-[facility] HIE PT & PTT (07/20/2024 7:21 PM EDT) [facility] HIE COAGULATION TISSUE FACTOR INDUCED:TIME:PT:PPP: QN:COAG 11.1 9.4 - 12.5 second(s) [facility] Comment:15 days - 4 weeks 1 - 5 [...] the same coagulation reagent and instrumentation as [facility]. Currently there are no coagulation studies available worldwide for children to 14 days, and no normal ranges. NON-[facility] HIE COAGULATION SURFACE INDUCED:TIME:PT:PPP: QN:COAG 32.2 25.1 - 36.5 second(s) [facility] Comment:Parameter 15 days - 4 weeks 1 - [...] the same coagulation reagent and instrumentation as [facility]. Currently there are no coagulation studies available worldwide for children to 14 days, and no normal ranges. Heparin therapeutic range (represented by Anti-Factor Xa activity of 0.2 - 0.4 U/mL) corresponds to PTT of 56.6 - 109.0 sec. NON-[facility] HIE COAGULATION TISSUE FACTOR INDUCED.INR:RELTIME: PT:PPP:QN:COAG 0.99 [facility] Comment:INR results are spec ifically intended to assess patients stabilized on long-term Anticoagulation therapy suggested INRs Less Intensive Anticoagulation 2.0 3.0Conventional Range 3.0 4.5 [facility] Lab- Blood 07/20/2024 7 :21 PM EDT Nikhil Tubbs DO LAB BLOOD ORDERABLES Final Resu lt Performing Organization Address City/[facility]/[place] [address], [place] * [facility] HIE eGFR (07/20/2024 7:21 PM EDT) [facility] NON-[facility] HIE EGFR 91 >=59 mL/min/1.7 3 m2 [facility] Lab- Blood 07/20/2024 7 :21 PM EDT Nikhil Tubbs DO LAB BLOOD ORDERABLES Final Resu lt Performing Organization Address [facility] [place] [address], [place] * [facility] HIE BNP (07/20/2024 7:21 PM EDT) [facility] NON-UH HIE NATRIURETIC PEPTIDE.B:MCNC:P T:SER/PLAS:QN: 58 5 - 80 pg/mL [facility] Lab- Blood 07/20/2024 7 :21 PM EDT Nikhil Nguyen Arley DO LAB BLOOD ORDERABLES Final Resu lt Performing Organization Address [facility] [place] [address], [place] * Coagulation Screen (07/06/2024 10:25 PM EDT) Protime 10.5 9.8 - 12.4 seconds LAB COAGULATION METHOD 07/06/2024 11:34 PM EDT [facility] INR 1.0 0.9 - 1.1 LAB COAGULATION METHOD 07/06/2024 11:34 PM EDT [facility] aPTT 31 26 - 36 seconds LAB COAGULATION METHOD 07/06/2024 11:34 PM EDT [facility] Blood Venous blood specimen / Unknown Venipuncture / Unknown 07/06/2024 10:25 PM EDT 07/06/2024 11:06 PM EDT Narrative [facility] - 07/06/2024 11:34 PM EDT The APTT is no longer used for monitoring Unfractionated Heparin Therapy. For monitoring Heparin Therapy, use the Heparin Assay. Flex Montemayor MD LAB BLOOD ORDERABLES Final Res ult Performing Organization Address City/[facility]/ZIP Co de Phone Number [facility] [address] [place], [place] [id number] * Type and Screen (07/06/2024 10:18 PM EDT) Pathologist [facility] ABO TYPE O 07/07/2024 1:08 AM EDT [facility] BLOOD BANK Rh TYPE POS 07/07/2024 1:08 AM EDT [facility] BLOOD BANK ANTIBODY SCREEN NEG 1:08 AM EDT [facility] BLOOD BANK Blood Venous blood specimen / Unknown Venipuncture / Unknown 07/06/2024 10:18 PM EDT 07/07/2024 12:01 AM EDT Flex Montemayor MD LAB BLOOD BANK TEST ORDERABLES Final Result Performing Organization Address City/[facility]/ZIP Co de Phone Number [facility] BLOOD BANK [address] [place] [address] * Comprehensive metabolic panel (07/06/2024 10:18 PM EDT) Pathologist [facility] Glucose 93 74 - 99 mg/dL LAB CHEMISTRY METHOD 07/06/2024 11:36 PM EDT [facility] Sodium 138 136 - 145 mmol/L LAB CHEMISTRY METHOD 07/06/2024 11:36 PM EDT [facility] Potassium 4.5 3.5 - 5.3 mmol/L LAB CHEMISTRY [facility] Comment:MILD HEMOLYSIS DETEC RADHAMES. The result may be falsely elevated due to hemolysis or other interferents. Clinical correlation is recommended. Repeat testing may be considered. Chloride 104 98 - 107 mmol/L LAB CHEMISTRY METHOD 07/06/2024 11:36 PM EDT [facility] Bicarbonate 24 21 - 32 mmol/L LAB CHEMISTRY METHOD 07/06/2024 11:36 PM EDT [facility] Anion Gap 15 10 - 20 mmol/L LAB CHEMISTRY METHOD 07/06/2024 11:36 PM EDT [facility] Urea Nitrogen 7 6 - 23 mg/dL LAB CHEMISTRY METHOD 07/06/2024 11:36 PM EDT [facility] Creatinine 0.66 0.50 - 1.05 mg/dL LAB CHEMISTRY METHOD 07/06/2024 11:36 PM EDT [facility] eGFR >90 >60 mL/min/1. 73m*2 LAB CHEMISTRY METHOD 07/06/2024 11:36 PM [facility] Comment: Calculations of estimated GFR are performed using the 2020 CKD-EPI Study Refit equation without the race variable for the IDMS-Traceable creatinine methods. https://jasn.asnjournals.org/content///ASN.1716452733 Calcium 9.0 8.6 - 10.6 mg/dL LAB CHEMISTRY METHOD 07/06/2024 11:36 PM EDT [facility] Albumin 4.1 3.4 - 5.0 g/dL LAB CHEMISTRY METHOD 07/06/2024 11:36 PM EDT [facility] Alkaline Phosphatase 90 33 - 110 U/L LAB CHEMISTRY METHOD 07/06/2024 11:36 PM EDT [facility] Total Protein 7.2 6.4 - 8.2 g/dL LAB CHEMISTRY METHOD 07/06/2024 11:36 PM EDT [facility] AST 28 9 - 39 U/L LAB CHEMISTRY METHOD 07/06/2024 11:36 PM EDT [facility] Comment:MILD HEMOLYSIS DETEC RADHAMES. The result may be falsely elevated due to hemolysis or other interferents. Clinical correlation is recommended. Repeat testing may be considered. Bilirubin, Total 0.6 0.0 - 1.2 mg/dL LAB CHEMISTRY METHOD 07/06/2024 11:36 PM EDT [facility] ALT 17 7 - 45 U/L LAB CHEMISTRY METHOD 07/06/2024 11:36 PM EDT [facility] Comment:Patients treated wit h Sulfasalazine may generate falsely decreased results for ALT. Blood Venous blood specimen / Unknown Venipuncture / Unknown 07/06/2024 10:18 PM EDT 07/06/2024 11:06 PM EDT us Flex Montemayor MD LAB BLOOD ORDERABLES Final Res ult Performing Organization Address [facility] Co de Phone Number [facility] [address] [place] [phone] * HIV 1/2 Antigen/Antibody Screen with Reflex to Confirmation (04/01/2023 9:02 AM EST) [facility] HIV 1/2 Antigen/Antibo dy Screen with Reflex to Confirmation Nonreactive Nonreactive LAB IMMUNOASSAY METHOD 04/01/2023 4:20 PM EST [facility] Blood Venous blood specimen / Unknown Venipuncture / Unknown 04/01/2023 9:02 AM EST 04/01/2023 9:02 AM EST Narrative [facility] - 04/01/2023 4:20 PM EST HIV Ag/Ab screen is performed using the Siemens [employer] HIV Ag/Ab Combo assay which detects the presence of HIV p24 antigen as well as antibodies to HIV-1 (Group M and O) and HIV-2. No laboratory evidence of HIV infection. If acute HIV infection is suspected, consider testing for HIV RNA by PCR (viral load). us Yash Yuen MD LAB BLOOD ORDERABLES Final Re sult Performing Organization Address [facility] Co de Phone Number [facility] [id number] [place] [phone] from Last 3 Months or Most Recently Relevant to Health Maintenance Insurance [facility] MEDICAID [facility] MEDICAID Advance Directives For more information, please contact: [phone] (Available ) * Full Code (Latest Code Status on File) Date Activated Date Inactivated Comments 02/06/2024 1:16 PM Question Answer Comments Plan of Care: Code Status Discussion Not Compl eted Decision Maker: Provider Rationale: Patient condition does not warra nt discussion * Full Code Date Activated Date Inactivated Comments 08/21/2023 6:35 AM 02/06/2024 1:16 PM Question Answer Comments Plan of Care: Code Status Discussion Not Compl eted Decision Maker: Provider Rationale: Patient condition does not warra nt discussion Healthcare Agents on File Name Relationship Healthcare Agent Relationship Communication Avery Gutiérrez Significant Other Health Care Agent [email or web address] Care Teams Boom Boss Relationship Specialty Start Date End Date Generic Provider, No Assigned Pcp, NONE [place] [id number] PCP - General Safety Engineer Pressure Vessels 06/27/24
--- OUTSIDE RECORDS SUMMARY | 2024-09-29 20:58 | XMS_ITS | Encounter Summary ---
Author Organization [facility] Address [address] [place] [address] Phone Care Team Providers Care Reverse Unit Operator Fisherman Name Role Phone Alejandro Fitzpatrick MD Primary Care Provider Elva Lowe MA Unavailable [phone] Carole Huertas APRN-ORGANIZATIONAL EFFECTIVENESS CONSULTANT Primary Care Prov ider Generic Provider, No Assigned Pcp Primary Car e Provider Unavailable Encounter Details Date Type Department Care Team (Late st Contact Info) Description 06/03/2024 Scanned Document [facility] Internal Medicine [address] [facility] [address] [place] [phone] Alejandro Fitzpatrick MD [address] [facility] [address] [place] [address] Social History Tobacco Use Types Packs/Day Years [...] from your doctor or pharmacy? Never 05/16/2024 [facility] Utilities Answer Date Recorded In [...] declined 05/16/2024 How often do you attend [facility] or restorationist services? Patient declined 05/16/2024 Do you belong to any clubs o r organizations such as roman catholic groups, unions, fraternal or athletic groups, or [...] Recorded Patient Health Questionnaire-2 Score 0 05/16/2024 [facility] - Occupational Stress Questionnaire Answer Date [...] any time in the past 12 m [facility], were you homeless or living in a penitentiary (including now)? No 05/17/2024 Comments No Sex [...] 01/03/2024 3:34 PM EDDavid Zheng RN * Are you blind or do [...] 01/03/2024 3:34 PM David Hernandez RN documented as of this encounter Mental [...] [facility] [address] [place] [phone] Jori Harman MD PhD [address] [facility] [address] [place] [address] documented as of this encounter Visit Diagnoses Not on filedocumented in this encounter Additional Health Concerns Assessment Noted Time A fall risk assessment has been complete d for the patient 05/05/2024 2:38 PM EST documented as of this encounter Care Teams Reverse Unit Operator Fisherman Relationship Specialty Start Date End Date Alejandro Fitzpatrick MD [address] [facility] [address] [place] [address] PCP - General Internal Medicine 05/26/24 06/22/24 Carole Huertas APRN-ORGANIZATIONAL EFFECTIVENESS CONSULTANT PCP - General Family Medicine 06/23/24 06/26/24 Generic Provider, No Assigned [place] [address] PCP - General Clinical Liaison 06/27/24 Elva Lowe MA Travel CoordinatorLube Worker 06/15/24 07/16/24 documented as of this encounter
--- OUTSIDE RECORDS SUMMARY | 2024-09-29 20:58 | XMS_ITS | Clinical Summary ---
Author Organization [facility] Address [address] [place] [address] Care Team Providers Care Tow Truck Driver Name Role Phone Unavailable Primary Care Provider Unavailabl e Social History Tobacco Use Types Packs/Day Years Used Date Smoking Tobacco: Never Assessed Comments Unknown Sex and Gender Information Value Date Recorded Sex Assigned at Not on file Legal Sex Female 6:36 PM EDT Gender Identity Not on file Sexual Orientation Not on file Last Filed Vital Signs Vital Sign Reading Time Taken Comments Blood Pressure 130/76 10/04/2021 12:00 PM EDT Pulse - - Temperature - - Respiratory Rate - - Oxygen Saturation - - Inhaled Oxygen Concentration - - Weight 104 kg (230 lb) 10/04/2021 12:00 PM EDT Height 157.5 cm (5' 2 ) 10/04/2021 12:00 PM EDT Body Mass Index 42.07 10/04/2021 12:00 PM EDT Plan of Treatment Health Maintenance Due Date Last Done Comments CT Colonography 1977 Colonoscopy 1977 Colorectal Cancer Screening 1977 FIT-DNA 1977 FIT 1977 FOBT 1977 Sigmoidoscopy 1977 Pap Smear 1998 Cervical Cancer Screening 2007 HPV/Cotest 2007 Mammogram 2017 Influenza Vaccine (#1) 2024 Insurance [facility]
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
[2024-09-30] MEDS: HYDROMORPHONE HCL 1 MG/ML CARTRIDGE IM (00:44)
[2024-09-30] MEDS: CYCLOBENZAPRINE HCL 10 MG TABLET PO (00:44)
[2024-09-30] MEDS: KETOROLAC TROMETHAMINE 30 MG/ML VIAL IM (00:45)
== END 2024-09-30 00:52 | disposition home or self-care (01) ==
PROVIDERS: Emergency Provider Emergency Medicine
DX: M54.16 Radiculopathy, lumbar region (principal); M54.50 Low back pain, unspecified; G89.29 Other chronic pain; F17.200 Nicotine dependence, unspecified, uncomplicated
CPT/HCPCS: 96372; 99284; J1171; J1885

== ENCOUNTER 2024-10-04 19:40 | Emergency (ER) | payer OTHER, SELFPAY ==
[2024-10-04 19:49] VITALS: BP 162/100; PULSE 100; TEMP 36.8; O2SAT 98; BMI 46.1
--- NOTE | 2024-10-04 22:03 | ED_ITS ---
HPI HPI - Back Pain/Injury General Chief Complaint: Back Pain/Injury Stated Complaint: LOWER BACK PAIN Time Seen by Provider: 10/04/24 21:52 Source: patient Mode of arrival: walk-in Limitations: no limitations History of Present Illness HPI Narrative: This 49-year-old female with a history of chronic back pain who is in pain management with a physician in [facility] presents for evaluation of worsening left low back pain. She denies any injury but states she was feeling pretty good this morning and went to help her at the fair. He has a food truck. She states that since being on her feet for several hours she started having increasing back pain. She did not take any of the 90, 5 mg oxycodone IR that she has because she states she is supposed to be getting a pain pump on and her pain management physician told her he did not want her taking her oxycodone prior to that because he wants it out of her system to see if the injection she is getting on will help her. She denies any loss of bowel or bladder control. She does not have any new neurologic symptoms. She has had back surgery twice. Related Data Home Medications ?Medication ?Instructions ?Recorded ?Confirmed cyclobenzaprine 10 mg tablet 10 mg PO Q8H PRN muscle s pasm 09/13/23 08/12/24 ibuprofen 800 mg tablet 800 mg 09/13/23 bumetanide 2 mg tablet 2 mg PO BID 08/12/24 5 duloxetine 60 mg capsule,delayed 60 mg PO DAILY 08/12/24 release (Cymbalta) Previous Rx's ?Medication ?Instructions ?Recorded oxycodone 5 mg capsule 5 mg PO Q6H PRN pain #10 cap s 09/04/23 methylprednisolone 4 mg tablets in 4 mg PO DAILY #21 e a 08/12/24 a dose pack (Medrol (Ian)) Allergies Allergy/AdvReac Type Severity Reaction Status Date / Time nabumetone Allergy Mild Hives Verified 10/04/24 19:55 hydrocodone Allergy Hives Verified 10/04/24 19:55 Penicillins Allergy Hives Verified 10/04/24 19:55 Opioid HPI Opioid Management Most Recent Opioid Data: Last Pain Scale 9 Today, 21:51 Last MAR Pain Assessment 09/30/24, 00:44 Review of Systems ROS Status of ROS 10 or more systems reviewed and unremark able except as noted in history and below [facility] Surgical History (Updated 09/04/23 @ 15:39 by Michelle Marie) History of spinal surgery ?Z98.890 - Other specified postprocedural states (ICD-10) Social History Smoking status: Current every day smoker Little interest or pleasure in doing things: not at all Feeling down, depressed, or hopeless: not at all Exam Narrative Exam Narrative: Vital signs and Nursing Notes reviewed: Patient is afebrile with a normal pulse, blood pressure is elevated 162/100, she is not hypoxic with pulse ox of 98% on room air General: Awake, alert, oriented, overweight female sitting on the edge of the bed no acute distress, HEENT: Normocephalic atraumatic, mucous membranes are moist and pink, eyes are clear, normal conjunctiva, vision is grossly intact Chest: Lungs are clear to auscultation with good air entry, there is no wheezing rhonchi or rales appreciated no accessory muscle use, patient is speaking in complete sentences-no chest wall tenderness to palpation CVS: Regular rate and rhythm S1-S2, no murmurs rubs or gallops, pulses are brisk and equal bilaterally ABD: Soft, nondistended, nontender, no rebound guarding or rigidity, bowel sounds are normal, no pulsatile masses appreciated Musc: 2 healed incisions in the lower lumbar spine, there is tenderness over the left lateral lumbar region without skin thickening redness or sign of infection Extremities: Moving all extremities, no lower extremity tenderness or swelling noted, negative Homans' sign, pulses are brisk and equal bilaterally Skin: Normal in appearance without rash,pallor, petechiae or purpura Neuro: No focal deficits, patient is ambulatory to steady gait, there is no saddle anesthesia, push and pull of the lower extremities is normal Constitutional Vital Signs, click to edit/add: Last Vital Signs Temp 98.2 F 10/04/24 19:49 Pulse 100 H 10/04/24 19:49 Resp 16 10/04/24 19:49 BP 162/100 H 10/04/24 19:49 Pulse Ox 98 10/04/24 19:49 O2 Del Method Room Air 10/04/24 19:49 Course Vital Signs Vital signs: Vital Signs Temperature 98.2 F 10/04/24 19:49 Pulse Rate 100 H 10/04/24 19:49 Respiratory Rate 16 10/04/24 19:49 Blood Pressure 162/100 H 10/04/24 19:49 Pulse Oximetry 98 10/04/24 19:49 Oxygen Delivery Method Room Air 10/04/24 19:49 Temperature 98.2 F 10/04/24 19:49 Pulse Rate 100 H 10/04/24 19:49 Respiratory Rate 16 10/04/24 19:49 Blood Pressure 162/100 H 10/04/24 19:49 Pulse Oximetry 98 10/04/24 19:49 Oxygen Delivery Method Room Air 10/04/24 19:49 MDM - Back Pain/Injury MDM Narrative Medical decision making narrative: This 49-year-old female history of chronic back pain who is supposed to be getting a pain pump in the near future for chronic low back pain due to herniated disks and failed surgeries presents for evaluation of acute worsening of her left lumbar pain after helping her earlier today at the out of a [facility] fair. She denies any fevers or chills. She has not had any loss of bowel or bladder control. 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 She alleges that she is going to have the injection on and if it helps her it is what will be put in her pain pump at the time of the pain pump placement. She was given a dose of Toradol, Norflex and 4 mg of IM morphine in the emergency department and discharged home with her . Discharge Plan Discharge Chief Complaint: Back Pain/Injury Clinical Impression: Acute exacerbation of chronic low back pain Patient Disposition: Home, Self-Care Time of Disposition Decision: 22:03 Condition: Good Prescriptions / Home Meds: No Action cyclobenzaprine 10 mg tablet 10 mg PO Q8H PRN (Reason: muscle spasm) ibuprofen 800 mg tablet 800 mg oxycodone 5 mg capsule 5 mg PO Q6H PRN (Reason: pain) Qty: 10 0RF methylprednisolone [Medrol (Ian)] 4 mg tablets,dose pack 4 mg PO DAILY Qty: 21 0RF duloxetine [Cymbalta] 60 mg capsule,delayed release(DR/EC) 60 mg PO DAILY bumetanide 2 mg tablet 2 mg PO BID Print Language: Bolivian Instructions: Chronic Pain (ED) Referrals: Physician,Non-Staff, MD [Primary Care Provider] - 1 week
[2024-10-04] MEDS: MORPHINE SULFATE 4 MG/ML VIAL IM (22:28)
[2024-10-04] MEDS: ORPHENADRINE 60 MG/2 ML VIAL IM (22:33)
[2024-10-04] MEDS: KETOROLAC TROMETHAMINE 60 MG/2 ML VIAL IM (22:33)
== END 2024-10-04 22:33 | disposition home or self-care (01) ==
PROVIDERS: Emergency Provider Emergency Medicine
DX: M54.50 Low back pain, unspecified (principal); G89.29 Other chronic pain; F17.200 Nicotine dependence, unspecified, uncomplicated
CPT/HCPCS: 96372; 99284; J1885; J2270; J2360

== ENCOUNTER 2024-10-14 18:54 | Emergency (ER) | payer OTHER, SELFPAY ==
[2024-10-14 19:17] VITALS: BP 114/77; PULSE 98; TEMP 36.9; O2SAT 99; BMI 46.1
--- NOTE | 2024-10-14 21:14 | ED_ITS ---
HPI HPI - General Adult General Chief complaint: Back Pain/Injury Stated complaint: LOWER BACK PAIN Time Seen by Provider: 10/14/24 19:08 Source: patient Mode of arrival: Wheelchair Limitations: no limitations History of Present Illness HPI narrative: Acute on chronic back pain she states she has been doing well since her last injection. She took her home medications approximately 6 hours ago without relief. Denies any fever, chills, nausea, vomiting, loss of bowel or bladder control denies any perineal anesthesia. Patient denies any new numbness or tingling. Urinary bleeding, rectal bleeding. Onset (ago): day(s) Location: Reports back Radiation: Reports non-radiation Severity: moderate Pain Consistency: Reports constant Treatments prior to arrival: Reports NSAID and other Related Data Home Medications ?Medication ?Instructions ?Recorded ?Confirmed cyclobenzaprine 10 mg tablet 10 mg PO Q8H PRN muscle s pasm 09/13/23 08/12/24 ibuprofen 800 mg tablet 800 mg 09/13/23 bumetanide 2 mg tablet 2 mg PO BID 08/12/24 5 duloxetine 60 mg capsule,delayed 60 mg PO DAILY 08/12/24 release (Cymbalta) Previous Rx's ?Medication ?Instructions ?Recorded oxycodone 5 mg capsule 5 mg PO Q6H PRN pain #10 cap s 09/04/23 methylprednisolone 4 mg tablets in 4 mg PO DAILY #21 e a 08/12/24 a dose pack (Medrol (Ian)) Allergies Allergy/AdvReac Type Severity Reaction Status Date / Time nabumetone Allergy Mild Hives Verified 10/04/24 19:55 pregabalin (From Lyrica) Allergy Unknown Unknown Verified 10/14/24 19:20 gabapentin Allergy Unknown Verified 10/14/24 19:20 hydrocodone Allergy Hives Verified 10/04/24 19:55 Penicillins Allergy Hives Verified 10/04/24 19:55 Opioid HPI Opioid Management Most Recent Opioid Data: Last Pain Scale 8 Today, 21:41 Last MAR Pain Assessment Today, 21:41 Review of Systems ROS Status of ROS 10 or more systems reviewed and unremark able except as noted in history and below Constitutional Denies: fever or chills Eyes Denies: change in vision Ears, nose, mouth, and throat Denies: neck pain, swelling of lips/tongue or dry mouth Cardiovascular Denies: chest pain Respiratory Denies: shortness of breath Gastrointestinal Denies: abdominal pain Genitourinary Denies: painful urination, urinary frequency, urinary urgency or blood in urine Musculoskeletal Reports: back pain; Denies: neck pain, extremity pain or muscle weakness Integumentary/Breast Denies: rash Neurological Denies: headache Psychiatric Denies: anxiety [facility] Surgical History (Updated 09/04/23 @ 15:39 by Michelle Marie) History of spinal surgery ?Z98.890 - Other specified postprocedural states (ICD-10) Social History Smoking status: Current every day smoker Little interest or pleasure in doing things: not at all Feeling down, depressed, or hopeless: not at all Exam Constitutional Vital Signs, click to edit/add: Last Vital Signs Temp 98.4 F 10/14/24 19:17 Pulse 98 H 10/14/24 19:17 Resp 18 10/14/24 19:17 BP 114/77 10/14/24 19:17 Pulse Ox 99 10/14/24 19:17 O2 Del Method Room Air 10/14/24 19:17 Documenting provider has reviewed patient's vital signs: yes Common normals: no apparent distress and oriented x3 General appearance: cooperative and comfortable Orientation/consciousness: Yes awake HENMT Common normals: normocephalic and hearing grossly normal bilaterally Face and sinus: normal facial exam External auditory canal: EACs normal Tympanic membrane: TMs normal bilaterally Mouth: oral and palatal mucosa normal Eye Common normals: PERRL, EOMs intact bilaterally and conjunctivae normal Neck & C-Spine Common normals: full ROM and supple Respiratory Common normals: normal respiratory effort Effort & inspection: able to speak in complete sentences; no decreased respiratory effort, not labored and no audible wheezes Cardio Common normals: regular rate, regular rhythm, S1 normal heart sound and S2 normal heart sound Peripheral pulses: pulses 2+ throughout GI Common normals: Normal to inspection, nondistended, normoactive bowel sounds present and non-tender Common normals: CVA tenderness Back & Pelvis Common normals: no CVA tenderness; thoracic and/or lumbar spine tender General back: no CVA tenderness Lumbar spine/lower back: lumbar spinal tenderness Extremity General: normal exam except as noted and edema Neuro Common normals: oriented x3 Course Vital Signs Vital signs: Vital Signs Temperature 98.4 F 10/14/24 19:17 Pulse Rate 98 H 10/14/24 19:17 Respiratory Rate 18 10/14/24 19:17 Blood Pressure 114/77 10/14/24 19:17 Pulse Oximetry 99 10/14/24 19:17 Oxygen Delivery Method Room Air 10/14/24 19:17 Temperature 98.4 F 10/14/24 19:17 Pulse Rate 98 H 10/14/24 19:17 Respiratory Rate 18 10/14/24 19:17 Blood Pressure 114/77 10/14/24 19:17 Pulse Oximetry 99 10/14/24 19:17 Oxygen Delivery Method Room Air 10/14/24 19:17 Medical Decision Making MDM Narrative Medical decision making narrative: Patient states she recently had an injection made her feel better but her symptoms recurred today she tried her prescribed medications including ibuprofen including Flexeril 10 mg and oxycodone IR 5 mg. States no relief. She denies any loss of bowel or bladder control perineal anesthesia urinary bleeding rectal bleeding states this is consistent with her chronic back pain and an acute flare. Patient requests Toradol states she tolerates this medication and prefers that she also tried Flexeril and Norflex 60 mg Toradol 60 mg IM and oxycodone 5 mg IR. We discussed plan of care and patient to follow-up with pain management tomorrow. Return to ER if any symptoms worsen or new symptoms develop. Differential Diagnosis Differential Diagnosis: Include but not limited to acute on chronic lumbar pain, muscle spasm. Discharge Plan Discharge Chief Complaint: Back Pain/Injury Clinical Impression: Acute exacerbation of chronic low back pain Patient Disposition: Home, Self-Care Time of Disposition Decision: 21:22 Mode of Transportation: Private Vehicle Prescriptions / Home Meds: No Action cyclobenzaprine 10 mg tablet 10 mg PO Q8H PRN (Reason: muscle spasm) ibuprofen 800 mg tablet 800 mg oxycodone 5 mg capsule 5 mg PO Q6H PRN (Reason: pain) Qty: 10 0RF methylprednisolone [Medrol (Ian)] 4 mg tablets,dose pack 4 mg PO DAILY Qty: 21 0RF duloxetine [Cymbalta] 60 mg capsule,delayed release(DR/EC) 60 mg PO DAILY bumetanide 2 mg tablet 2 mg PO BID Print Language: Anguillan Instructions: Acute Low Back Pain (ED), Opioid Safety (ED) Additional Instructions: Follow-up with primary care and your pain management tomorrow. Do not drive or operate a call taking medications including oxycodone, Flexeril, Norflex. Referrals: Your pain management doctor/DR Tilley [Other] - As soon as possible Physician,Non-Staff, [Primary Care Provider] - 1 week Discharge Date/Time: 10/14/24 22:00
[2024-10-14] MEDS: KETOROLAC TROMETHAMINE 60 MG/2 ML VIAL IM (21:41)
[2024-10-14] MEDS: ORPHENADRINE 60 MG/2 ML VIAL IM (21:41)
[2024-10-14] MEDS: OXYCODONE HCL 5 MG TABLET PO (21:41)
== END 2024-10-14 22:00 | disposition home or self-care (01) ==
PROVIDERS: Emergency Provider Emergency Medicine
DX: M54.50 Low back pain, unspecified (principal); G89.29 Other chronic pain; F17.200 Nicotine dependence, unspecified, uncomplicated
CPT/HCPCS: 96372; 99284; J1885; J2360

== ENCOUNTER 2025-03-23 18:37 | Emergency (ER) | payer OTHER, SELFPAY ==
[2025-03-23 18:40] VITALS: BP 119/91; PULSE 98; TEMP 36.5; O2SAT 100; BMI 46.1
--- NOTE | 2025-03-23 20:21 | ED.GENADUL1 ---
HPI HPI - General Adult General Chief complaint: Back Pain/Injury Stated complaint: Lower back pain Time Seen by Provider: 03/23/25 19:16 Source: patient Mode of arrival: Wheelchair History of Present Illness HPI narrative: Patient is a 49-year-old female with PMH of chronic back pain and previous spinal surgeries that presents with acute on chronic flare of her back pain that got worse this morning. She does have chronic radiculopathy down her left leg that travels from her back, buttock, and lateral leg and terminates at about her calf, but this has not changed. She does see pain management and is current with them and has an appointment on March 30. She states she tried to call their office but they are out secondary to the holidays. She takes oxycodone 10 mg as needed pain and did take her home Toradol 50 mg and Flexeril 10 mg today without relief. She denies any bowel or bladder incontinence/retention, saddle anesthesia, new leg weakness/numbness, fever, or IV drug use. Related Data Home Medications ?Medication ?Instructions ?Recorded ?Confirmed cyclobenzaprine 10 mg tablet 10 mg PO Q8H PRN muscle spasm 09/13/23 08/12/24 ibuprofen 800 mg tablet 800 mg 09/13/23 bumetanide 2 mg tablet 2 mg PO BID 08/12/24 08/12/24 duloxetine 60 mg capsule,delayed 60 mg PO DAILY 08/12/24 08/12/24 release (Cymbalta) Previous Rx's ?Medication ?Instructions ?Recorded oxycodone 5 mg capsule 5 mg PO Q6H PRN pain #10 caps 09/04/23 methylprednisolone 4 mg tablets in 4 mg PO DAILY #21 ea 08/12/24 a dose pack (Medrol (Ian)) prednisone 50 mg tablet 50 mg PO DAILY 4 days #4 tabs 03/23/25 Allergies Allergy/AdvReac Type Severity Reaction Status Date / Time nabumetone Allergy Mild Hives Verified 10/04/24 19:55 pregabalin (From Lyrica) Allergy Unknown Unknown Verified 10/14/24 19:20 gabapentin Allergy Unknown Verified 10/14/24 19:20 hydrocodone Allergy Hives Verified 10/04/24 19:55 Penicillins Allergy Hives Verified 10/04/24 19:55 Opioid HPI Opioid Management Most Recent Opioid Data: Last Pain Scale 8 Today, 20:45 Review of Systems ROS Status of ROS 10 or more systems reviewed and unremarkable except as noted in history and below [facility] Surgical History (Updated 09/04/23 @ 15:39 by Michelle Marie) History of spinal surgery ?Z98.890 - Other specified postprocedural states (ICD-10) Social History Smoking status: Current every day smoker Little interest or pleasure in doing things: not at all Feeling down, depressed, or hopeless: not at all Exam Narrative Exam Narrative: General: No distress, age-appropriate Skin: Warm, dry, no pallor. No rash. Head: Normocephalic, atraumatic. Neck: Supple, non-tender. Eye: Pupils are equal, round and EOMI. No scleral icterus. Ears, Nose, Mouth, and Throat: No nasal mucosal hypertrophy. Oral mucosa is moist, no posterior oropharynx erythema, uvula is mid-line Cardiovascular: Regular Rate and Rhythm without murmur, gallop or rub. Respiratory: No accessory muscle use or respiratory distress. Back: No midline thoracic tenderness, midline lumbar and left SI joint tenderness Musculoskeletal: Full ROM of all extremities, no calf or popliteal tenderness Neurological: A&O x4. No cranial nerve dysfunction observed. No truncal ataxia. Moves all extremities. Sensation intact. Psychiatric: Cooperative and interactive. Normal mood and affect. Constitutional Vital Signs, click to edit/add: Last Vital Signs Temp 97.7 F 03/23/25 18:40 Pulse 98 H 03/23/25 18:40 Resp 18 03/23/25 18:40 BP 119/91 03/23/25 18:40 Pulse Ox 100 03/23/25 18:40 O2 Del Method Room Air 03/23/25 18:40 Documenting provider has reviewed patient's vital signs: yes Course Vital Signs Vital signs: Vital Signs Temperature 97.7 F 03/23/25 18:40 Pulse Rate 98 H 03/23/25 18:40 Respiratory Rate 18 03/23/25 18:40 Blood Pressure 119/91 03/23/25 18:40 Pulse Oximetry 100 03/23/25 18:40 Oxygen Delivery Method Room Air 03/23/25 18:40 Temperature 97.7 F 03/23/25 18:40 Pulse Rate 98 H 03/23/25 18:40 Respiratory Rate 18 03/23/25 18:40 Blood Pressure 119/91 03/23/25 18:40 Pulse Oximetry 100 03/23/25 18:40 Oxygen Delivery Method Room Air 03/23/25 18:40 Medical Decision Making [facility] Narrative Medical decision making narrative: Patient is a 49-year-old female with a history of chronic back pain and prior spinal surgeries presenting with an acute on chronic flare. She reports no red-flag symptoms including bowel/bladder changes, saddle anesthesia, new weakness/numbness, fever, or IV drug use. In the ED on arrival she is rocking [id number] sitting on the chair. She received Toradol 30 mg IM, Norflex 60 mg IM, and Dilaudid 0.5 mg IM, with subsequent improvement in pain. Given her chronic pain history and upcoming pain management follow-up, she was discharged with a Prednisone burst 50 mg daily for 4 days, first dose administered in the ED, for additional anti-inflammatory effect. Patient advised on safe opioid use, activity modifications, and to follow up with pain management as scheduled. No emergent interventions required at this time. Differential Diagnosis Differential Diagnosis: Acute on chronic back pain, SI joint pain, DDD Discharge Plan Discharge Chief Complaint: Back Pain/Injury Clinical Impression: Acute exacerbation of chronic low back pain, Lumbar radiculopathy Patient Disposition: Home, Self-Care Time of Disposition Decision: 21:14 Condition: Good Mode of Transportation: Private Vehicle Prescriptions / Home Meds: New prednisone 50 mg tablet 50 mg PO DAILY 4 Days Qty: 4 0RF No Action cyclobenzaprine 10 mg tablet 10 mg PO Q8H PRN (Reason: muscle spasm) ibuprofen 800 mg tablet 800 mg oxycodone 5 mg capsule 5 mg PO Q6H PRN (Reason: pain) Qty: 10 0RF methylprednisolone [Medrol (Ian)] 4 mg tablets,dose pack 4 mg PO DAILY Qty: 21 0RF duloxetine [Cymbalta] 60 mg capsule,delayed release(DR/EC) 60 mg PO DAILY bumetanide 2 mg tablet 2 mg PO BID Print Language: Nepali Instructions: Lower Back Exercises (ED) Referrals: Physician,Non-Staff, [Physician] - 1 week Discharge Date/Time: 03/23/25 21:40
[2025-03-23] MEDS: ORPHENADRINE 60 MG/2 ML VIAL IM (20:51)
[2025-03-23] MEDS: KETOROLAC TROMETHAMINE 30 MG/ML VIAL IM (20:51)
[2025-03-23] MEDS: HYDROMORPHONE HCL 0.5 MG/0.5 ML SYRINGE IM (20:51)
--- OUTSIDE RECORDS SUMMARY | 2025-03-23 21:23 | XMS_ITS | Patient Health Record ---
Author Organization [facility] Address [address] [place] [address] Care Team Providers Care Process Excellence Manager Name Role Phone Estelle Deleon Primary Care Provider [phone] Allergies Allergen (clinical drug ingredient) Drug/Non Drug Allergy documented on EMR Reaction Allergy Type Onset Date Status VicodinhivesDrug AllergyActivePenicillinhivesDrug AllergyActive Reason For Referral No Information Medications Medication SIG (Take, Route, Frequency, Duration) Notes Start Date End Date Status Ibuprofen 800 MG Tablet 1 tablet with fo od or milk as needed Orally Three times a day 11/20/2021ctiveOndansetron HCl 8 MG Tablet1 tablet as needed Orally every six to eight hours; Duration: 10 days05/29/2022ctiveOmeprazole 40 MG Capsule Delayed Release1 capsule 30 minutes before morning meal Orally Once a dayActive Cetirizine HCl 10 MG Tablet1 tablet Orally Once a day; Duration: 30 day(s) 10/05/2022ctiveCyclobenzaprine HCl 10 MG Tablet1 tablet Orally three times a day (tid)ActiveAlbuterol Sulfate HFA 108 (90 Base) MCG/ACT Aerosol Solution1 puff as needed Inhalation every 4 hrsPRNActiveTopiramate 100 MG Tablet1 tablet Orally twice a day; Duration: 30 day(s)11/12/2022ctiveGabapentin 300 MG Capsule 1 capsule Orally three times a day; Duration: 30 day(s)11/12/2022ctive FLUoxetine HCl 60 mg TabletTAKE 1 TABLET BY MOUTH EVERY DAY; Duration: 30Active Social History Tobacco Use: Social History Observation Description Date Details (start date - stop date) Current Smoker NA - NA Sex Assigned At : Social History Observation Description Sex Assigned At Female Social History GeneralSocial InfoQuestionAnswerNotesTransition of Care:ER/UC/hospital since last office visit?Yes, report [place] fileB[facility] ERDepression Screening (PHQ-9): Little interest or pleasure in doing thingsSeveral daysFeeling down, depressed, or hopelessSeveral daysTrouble falling or staying asleep, or sleeping too much Several daysFeeling tired or having little energySeveral daysPoor appetite or overeatingSeveral daysFeeling bad about yourself-or that you are a failure or have let yourself or your family downSeveral daysTrouble concentrating on things, such as reading the newspaper or watching televisionNot at allMoving or speaking so slowly that other people could have noticed. Or the opposite being so fidgetyor restless that you have been moving around a lot more than usualNot at allThoughts that you would be better off , or of hurting yourself in some wayNot at allTotal Qwosk3KvrjbqrkbzfhrTykj DepressionSubstance abuse/mental health issues of patient/familyPatient -DeniesAbility to understand healthcare/treatmentPatient:GoodTobacco Screen:Are you a:current smoker? How often do you smoke cigarettes?every day? How many cigarettes a day do you smoke? 11-20? How soon after you wake up do you smoke your first cigarette?within 5 min ? Are you interested in quitting?Not ready to quitSexual Hx:Had sex in the last 12 months (vaginal, oral, or anal)?YesHave you ever had an STD?NoSocial/Support Concerns:Patient:NoAlcohol Screening:Did you have a drink containing alcohol in the past year?DcWptcqs6LozjwvdioryjfxEawsddtrQghmaexmd affecting health Poor/Risky Behaviors:Denies-Communication Barrier:Language Barrier?:No Problems Problem Type SNOMED Code ICD Code Onset Dates Problem Status W/U Status Risk Notes Problem Opioid dependence (11051479) Opioid depen dence, uncomplicated (F11.20) ActiveconfirmedProblemInsomnia (902783882)Other insomnia (G47.09)Activeconfirmed ProblemAnxiety (69108480)Anxiety (F41.9)ActiveconfirmedProblemBipolar 1 disorder (188755831)Bipolar 1 disorder (F31.9)ActiveconfirmedProblemGastroesophageal reflux disease (disorder) (808354373)Chronic GERD (K21.9)ActiveconfirmedProblem Migraine without aura, not refractory (992723006)Migraine without aura and without status migrainosus, not intractable (G43.009)ActiveconfirmedProblem Sciatica (60861555)Right sided sciatica (M54.31)ActiveconfirmedProblemMorbid obesity (708531494)Obesities, morbid (E66.01)ActiveconfirmedProblemSciatica (38584424)Bilateral low back pain with left-sided sciatica, unspecified chronicity (M54.42)ActiveconfirmedProblemGeneralized anxiety disorder (27754554) Generalized anxiety disorder (F41.1)Activeconfirmed Plan Of Treatment No Information Insurance Providers Payer Name Payer Address Payer Phone Subscriber Number Group Number Insured Name Patient Relationship to Insured Coverage Start Date Coverage End Date ANTHEM Primary [address] [place] [address] [id number] JERAD BROWNSelf - patient is the [id number] 2022[employer] [place] MedicaidPO [address] [place] [id number], JERAD Self - patient is the [id number] 2022Wrap [facility] [address] [place] [id number], MELISSASelf - patient is the [id number] 2022ental [facility] MedicaidPO [address] [place] [id number], MELISSASelf - patient is the insured 2022ental [facility] [address] [place] [address] [phone], MELISSASelf - patient is the [id number] 2022 Medical (General) History Medical History History ICD Code degenerative disk disease MigraineobesityEsophageal refluxSurgical History Surgery Date(Month/Year) tubes in ears total abdominal hysterectomy, has ovariesLeft foot surgerytonsillectomy gallbladderHospitalization History Reason Date(Month/Year) See surgical
--- OUTSIDE RECORDS SUMMARY | 2025-03-23 21:23 | XMS_ITS | Clinical Summary ---
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 Liver failure. pt states she has liver danage GabapentinHeadaches,Other (See Comments)12/09/2023 Leg swelling Hydrocodone-VwgcthsezqbuwDtalx82/12/2023NabumetoneNausea And Vomiting,RashLow 2951Olfeurprhep10/18/2024regabalinSwelling,Other (See Comments)02/06/2024 BLE Medications MedicationSigDispense QuantityRefillsLast FilledStart DateEnd DateStatus DULoxetine (CYMBALTA) 60 MG extended release capsule Take 90 mg by mouth daily5Active albuterol sulfate (PROAIR RESPICLICK) 108 (90 Base) MCG/ACT aerosol powder inhalation Inhale 2 puffs into the lungs every 4 hours as yibdsw205Active hydrOXYzine HCl (ATARAX) 25 MG tablet Take 1 tablet by mouth 3 times daily as neededActive naloxone 4 MG/0.1ML LIQD nasal spray 1 spray by Nasal route as needed for Opioid Reversal 2 each 5Active cyclobenzaprine (FLEXERIL) 10 MG tablet Take 1 tablet by mouth5Active hydroCHLOROthiazide (HYDRODIURIL) 25 MG tablet Take 1 tablet by mouth5Active omeprazole (PRILOSEC) 40 MG delayed release capsule Take 1 capsule by mouth 2 times daily5Active DULoxetine (CYMBALTA) 30 MG extended release capsule Take by mouth dailyActive zolpidem (AMBIEN) 10 MG tablet Take by mouth nightly as needed for Sleep.Active fjqgyu-ebcmhsgrx-uga sulfate (SUPREP BOWEL PREP KIT) 17.5-3.13-1.6 GM/177ML SOLN solution Take 177 mLs by mouth See Admin Instructions Take 4000 mL by mouth the day before colonoscopy. An hour after completing the Colyte, take 1 bottle of Suprep. If stool is still not clear an hour later,take the second bottle of Suprep. 354 mL 5Active topiramate (TOPAMAX) 50 MG tablet Take 1 tablet by mouth 2 times daily 60 tablet 3095Active varenicline (CHANTIX) 1 MG tablet Take 1 tablet by mouth 2 times daily 180 tablet 5Active meloxicam (MOBIC) 7.5 MG tablet Indications:Failed back syndromeTake 1 tablet by mouth 2 times daily as needed for Pain 60 tablet 5Active oxyCODONE HCl (OXY-IR) 10 MG immediate release tablet Indications:Failed back syndromeTake 1 tablet by mouth every 8 hours as needed for Pain for up to 7 days. Intended supply: 7 days Max Daily Amount: 30 mg 21 tablet Expired Active Problems ProblemNoted DateDiagnosed DateHTN (hypertension)11/20/2024Failed back syndrome 07/14/2024 Overview (02/23/2025): Chronic illness with a severe exacerbation and/or [...] rounds of injections in the past that havebecome futile. She underwent a successful spinal cord stimulation trial as well as implant. Unfortunately, she developed a blood clot and infection which resulted in removal of the spinal cord stimulator device. She was then hospitalized and then put on antibiotics. Regarding medication management,she has been on Tylenol, NSAIDs, muscle relaxants, [...] ability to complete activities of daily living. 10/08/24: ITP trial with 200mcg of preservative free intrathecal morphine. 85% relief for 4 days. Positive trial. 11/27/24: ITP Placement Device: Synchromed III. 40mL MRI: Full body eligible Pump Site: Right Abdomen Medication: Morphine 2mg/ml and Bupivaciane 2mg/mL Rate: 0.345mg per 24 hours PTM bolus: 0.05mg over 2 min. Lockout 6 hours. 4 bolus options in 24 hours. Max dose in 24 hours-0.4mg Refill date: 05/21/25. Assessment & Plan (02/24/2025 9:07 AM EST): -changes made to ITP per above -ITP filled under fluoroscopic guidance. Plan for repeat in 3-4 months. Will need to use fluoroscopy in future Assessment & Plan (01/25/2025 9:32 AM EST): -increase rate to 0.3mg per 24 hours. 30% increase in rate Assessment & Plan (01/04/2025 8:12 PM EDT): -rate increased to 0.23mg per 24 hours. 15% increase -refill in 6 weeks Assessment & Plan (12/02/2024 12:12 PM EDT): 11/27/24: ITP Placement Device: Synchromed III. 40mL MRI: Full body eligible Pump Site: Right Abdomen Medication: Morphine 2mg/ml and Bupivaciane 2mg/mL Rate: 0.2mg per 24 hours PTM bolus: 0.05mg over 2 min. Lockout 6 hours. 4 bolus options in 24 hours. Max dose in 24 hours-0.4mg Refill date: 05/21/25. Will refill every 3 months -follow up in 1 month for assessment Assessment & Plan (10/13/2024 9:49 AM EDT): 10/08/24: ITP trial with 200mcg of preservative free intrathecal morphine. 85% relief for 4 days. Positive trial. -will plan to move forward to permanent implantation. 40mL pump reservoir. -once we have the procedure scheduled, we will discuss weaning from oral narcotics Assessment & Plan (10/05/2024 11:32 AM EDT): -Oxycodone 5mg TID prn refilled. PDMP reviewed and appropriate -ITP trial for 10/08. 200mcg of PF morphine to be delivered in the intrathecal space -Discussed the principles of opioid tolerance as [...] substances. Discussed side effects of opioids including, butnot limited to, itching, constipation, nausea, and vomiting. The patient does not demonstrate any overt signs of alcohol or drug abuse, and there are no potential contraindications to the use of controlled substances. The relevant previous medical records were reviewed. The patient continues to make good-shania efforts to reduce and eliminate use of opioids through our comprehensive multidisciplinary pain treatment program. Assessment & Plan (09/07/2024 1:13 PM EDT): [...] substances. Discussed side effects of opioids including, butnot limited to, itching, constipation, nausea, and vomiting. [...] substances. Discussed side effects of opioids including, butnot limited to, itching, constipation, nausea, and vomiting. [...] rounds of injections in the past that havebecome futile. She underwent a successful spinal cord stimulation trial as well as implant. Unfortunately, she developed a blood clot and infection which resulted in removal of the spinal cord stimulator device. She was then hospitalized and then put on antibiotics. Regarding medication management,she has been on Tylenol, NSAIDs, muscle relaxants, [...] agreement, Narcotic Drug Policy (NDP), in great detail.All questions were answered. Pt expressed understanding and explicit agreement. She will sign this form today. Will obtain a urine drug screen today. Pt denies any illicit substances. Pt has not used any controlled substances within the last week. OARRS will be obtained. Naloxone provided. Lumbar disc herniation with ndcrqbxwutqfn67/22/2024Hepatic fibrosis, advanced /01/2024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 12/24/20234612Edwwsmj15/01/2024Morbid hnhxczo0409/23/2023hronic back pain greater than 3 months bwniafyc84/25/2024ontinuous opioid syrqrdnlaj36/08/2024urrent edferr7501/20/2023 Overview (08/20/2024): Added secondary to documentation in Social History. Bipolar qesjvjqa22/24/2023hronic hepatitis 01/15/2023bdominal pain01/31/2014 Resolved Problems ProblemNoted DateDiagnosed DateResolved NqrvQnqj17/05/596309losed fracture of trapezoidal bone of wrist/ Encounters DateTypeDepartmentCare SsrqTixcwsoxeck78/02/2025Orders Only [facility] [address] [place] [address] Michel Sullivan DO Failed back syndrome (Primary Dx)02/22/2025 9:45 AM ESTProcedure visit [facility] [address] [place] [phone] Michel Sullivan DO Failed back syndrome (Primary Dx)02/14/2025 4:04 PM EST - 02/14/2025 8:[address] [facility] Emergency Department [address] [place] [address] Grisel Segovia DO Malfunction of device, initial encounter (Primary Dx); Device fitting or adjustment Discharge Disposition: Home or Self Care02/14/20250491Vnfxvd78/03/2025 9:15 AM EST Office Visit [facility] [address] [place] [phone] Michel Sullivan DO Failed back syndrome (Primary Dx)01/20/2025Orders Only [facility] [address] [place] [address] Michel Sullivan DO Failed back syndrome (Primary Dx)01/20/2025Telephone [facility] [address] [place] [address] Michel Sullivan DO clinical hqthwz8201/19/2025Telephone [facility] [address] [place] [phone] Declan Batista MD Missed Pjpcocmemoz59/13/2025 3:15 PM EDTOffice Visit [facility] [address] [place] [address] Michel Sullivan, DO Failed back syndrome (Primary Dx)12/30/2024Orders Only [facility] [address] [place] [address] Michel Sullivan, DO Failed back dbwtixvq72/01/2025Refill [facility] [address] [place] [address] Michel Sullivan, DO Medication Refillfrom Last 3 Months Family History Medical HistoryRelationNameCommentsAlcohol AbuseFatherDennis LiebCancerFather Dyllan LiebCOPDMotherDebra LiebRelationNameStatusCommentsFatherDennis LiebAlive MotherDebra LiebAlive Social History Tobacco UseTypesPacks/DayYears UsedDateSmoking Tobacco: Every DayCigarettes0.515 Passive Smoke Exposure: Current Tobacco Cessation:Ready to Q uit: Not Asked; Counseling Given: Not Answered Alcohol UseStandard Drinks/WeekCommentsNever0 (1 standard drink = 0.6 oz pure alcohol)AUDIT-CAnswerDate RecordedQ1: How often do you have a drink containing alcohol?Never10/29/2024Q2: How many drinks containing alcohol do you have on a typical day when you are drinking?Patient does not drink10/29/2024Q3: How often do you have six or more drinks on one occasion?Never10/29/2024UDIT-CAnswerDate RecordedQ1: How often do you have a drink containing alcohol?Never02/14/2025Q2: How many drinks containing alcohol do you have on a typical day when you are drinking?Patient does not drink02/14/2025Q3: How often do you have six or more drinks on one occasion?Never02/14/2025Interpersonal Safety Domain Source: IP Abuse ScreeningAnswerDate RecordedPhysical chsdaRptyym90/23/2025Verbal abuse Pdjfxk3902/14/2025Emotional hklkbKeougs04/23/2025Financial cnmhjLpliil59/23/2025 Sexual obuizTvspxu76/23/2025CommentsNoSex and Gender InformationValue Date RecordedSex Assigned at RyxopWwvmeq01/03/2025 8:22 AM EDTLegal SexFemale 01/30/2014 8:32 PM ESTGender BmipttotLnjmnk39/03/2025 8:22 AM EDTSexual OrientationChoose not to snpjjeey26/03/2025 8:22 AM EDT Last Filed Vital Signs Vital SignReadingTime TakenCommentsBlood Wgfszesq914/6202/22/2025 9:33 AM EST Axmug581002/22/2025 9:33 AM NRVDfblqbvgogj57.1 ??C (96.9 ??F)02/22/2025 9:33 AM ESTRespiratory Tiez598004/16/2024 4:05 PM ESTOxygen Mrephvjcdl80%02/22/2025 9:33 AM ESTInhaled Oxygen Concentration--Ummowx946.9 kg (260 lb)02/22/2025 9:33 AM TXTQpmwuj895 cm (5' 3 )02/22/2025 9:33 AM ESTBody Mass Index46.0602/22/2025 9:33 AM EST Plan of Treatment DateTypeDepartmentCare Team (Latest Contact Info)Basrwskkkpz74/02/2026 8:30 AM ESTProcedure visit [facility] [address] [place] [address] Michel Sullivan, DO [address] [place], [place] [phone] Return in about 3 months (around 05/23/2025) for ITP refill.Health MaintenanceDue DateLast DoneCommentsDepression Qqanuuiznm79/31/1989HIV nqkkrq7303/24/1992 DTaP/Tdap/Td vaccine (1 - Tdap)1996Hepatitis A vaccine (1 of 2 - Risk 2- dose series)1996Pneumococcal 0-49 years Vaccine (1 of 2 - PCV)1996 Diabetes muduvs9103/24/2012reast cancer ovlxwo0303/24/20172492Yjkjif51/31/2017 Alyoayfvsmu25/31/2022olorectal Cancer Aptgle7103/24/2022FIT/FOBT: Average risk 2022Fecal-DNA (Cologuard): Average risk2022igmoidoscopy/CT vxesbwkumpez33/31/2022Hepatitis B vaccine (2 of 2 - CpG 2-dose series)05/24/2023 04/26/2023Flu vaccine (#1)5COVID-19 Vaccine (2 - season) /01/2021Hib vaccineAged OutNo longer eligible based on patient's age to complete this topicMeningococcal (ACWY) vaccineAged OutNo longer eligible based on patient's age to complete this topicMeningococcal B vaccineAged OutNo longer eligible based on patient's age to complete this topicPolio vaccineAged OutNo longer eligible based on patient's age to complete this topic Medical Devices ImplantedTypeAreaManufacturerDevice IdentifierShelf Expiration DateModel / Serial / LotPump Int Thcl Infusion 40 Ml Programmable Ctrl Workflow - [id number] Implanted:Qty: 1 on 11/27/2024 by Michel Sullivan DO at [facility] INC-WD01/19/[id number] / [id number] / [id number] Ith L86cm Ascenda Spnl Seg - [id number] Implanted:Qty: 1 on 11/27/2024 [facility] BackKPC [facility]Q1[facility] INC-WD04/16/[id number] / / [id number] Procedures Procedure NamePriorityDate/TimeAssociated DiagnosisCommentsCT ABDOMEN PELVIS W IV GKNCXGMOLQEA28/23/2025 7:25 PM EST URINALYSIS WITH REFLEX TO GXHZNKAMNAV09/23/2025 7:14 PM EST EKG 12-MTVWSASO78/ 5:44 PM EST LACTIC XDBDVIZU12/23/2025 5:30 PM EST KJCCBIEATU01/23/2025 5:30 PM EST JNPZOAIMYLI32/23/2025 5:30 PM EST COMPREHENSIVE METABOLIC GLLYWTTRL53/23/2025 5:30 PM EST CBC WITH AUTO HTJMQNYKMSNHLJCX07/23/2025 5:30 PM EST from Last 3 Months Results * CT ABDOMEN PELVIS W IV CONTRAST Additional Contrast? None (02/14/2025 7:25 PM EST)Anatomical RegionLateralityModalityAbdomen, Pelvis, HipComputed Tomography Specimen (Source)Anatomical Location / LateralityCollection Method / Volume Collection TimeReceived Time02/14/2025 7:57 PM EST Impressions 02/14/2025 8:04 PM EST No acute CT findings in the abdomen or pelvis. Narrative 02/14/2025 8:04 PM EST EXAMINATION: CT OF THE ABDOMEN AND PELVIS WITH CONTRAST 02/14/2025 7:10 pm TECHNIQUE: CT of the abdomen and pelvis was performed with the administration of intravenous contrast. Multiplanar reformatted images are provided for review. Automated exposure control, iterative reconstruction, and/or weight based adjustment of the mA/kV was utilized to reduce the radiation dose to as low as reasonably achievable. COMPARISON: None. HISTORY: ORDERING SYSTEM PROVIDED HISTORY: abdominal pain TECHNOLOGIST PROVIDED HISTORY: Additional Contrast?->None Reason for exam:->abdominal pain Decision Support Exception - unselect if not a suspected or confirmed emergency medical condition->Emergency Medical Condition (MA) What reading provider will be dictating this exam?->CRC FINDINGS: Lower Chest: No acute findings. Organs: Cholecystectomy. ??Liver, biliary tree, spleen, pancreas, bilateral adrenal glands, and bilateral kidneys are unremarkable. ??Bilateral ureters are unremarkable. GI/Bowel: Stomach and duodenal sweep are unremarkable. ??No enteric contrast was administered. ??No dilated loops of small bowel that would suggest obstruction. ??Appendix is unremarkable. ??Colon is unremarkable. Pelvis: Urinary bladder is unremarkable. ??Hysterectomy, with likely bilateral salpingo oophorectomy. ??No significant free fluid in the pelvis. ??No bulky pelvic lymphadenopathy. Peritoneum/Retroperitoneum: Mild calcified aortoiliac atherosclerosis, without aneurysm. ??Main portal vein is patent. ??No bulky lymphadenopathy. ??No ascites or free gas in the abdomen. Bones/Soft Tissues: Implanted intrathecal pump at the lateral right abdomen. No acute bony findings. ??Small fat containing umbilical hernia. Procedure Note Mika Mcnamara MD - 02/14/2025 EXAMINATION: CT OF THE ABDOMEN AND PELVIS WITH CONTRAST 02/14/2025 7:10 pm TECHNIQUE: CT of the abdomen and pelvis was performed with the administration of intravenous contrast. Multiplanar reformatted images are provided forreview. Automated exposure control, iterative reconstruction, and/or weightbased adjustment of the mA/kV was utilized to reduce the radiation dose to aslow as reasonably achievable. COMPARISON: None. HISTORY: ORDERING SYSTEM PROVIDED HISTORY: abdominal pain TECHNOLOGIST PROVIDED HISTORY: Additional Contrast?->None Reason for exam:->abdominal pain Decision Support Exception - unselect if not a suspected or confirmed emergency medical condition->Emergency Medical Condition (MA) What reading provider will be dictating this exam?->CRC FINDINGS: Lower Chest: No acute findings. Organs: Cholecystectomy. Liver, biliary tree, spleen, pancreas,bilateral adrenal glands, and bilateral kidneys are unremarkable. Bilateralureters are unremarkable. GI/Bowel: Stomach and duodenal sweep are unremarkable. No entericcontrast was administered. No dilated loops of small bowel that would suggest obstruction. Appendix is unremarkable. Colon is unremarkable. Pelvis: Urinary bladder is unremarkable. Hysterectomy, with likelybilateral salpingo oophorectomy. No significant free fluid in the pelvis. Nobulky pelvic lymphadenopathy. Peritoneum/Retroperitoneum: Mild calcified aortoiliac atherosclerosis, without aneurysm. Main portal vein is patent. No bulky lymphadenopathy.No ascites or free gas in the abdomen. Bones/Soft Tissues: Implanted intrathecal pump at the lateral rightabdomen. No acute bony findings. Small fat containing umbilical hernia. IMPRESSION: No acute CT findings in the abdomen or pelvis. Authorizing ProviderResult TypeResult StatusTara S Segovia [facility] ORDERABLES Final Result * Urinalysis with Reflex to Culture (02/14/2025 7:14 PM EST)ComponentValueRef RangeTest MethodAnalysis TimePerformed AtPathologist SignatureColor, UAYellow Straw/Vtcero3602/14/2025 7:17 PM [facility] LABClarity, UA CwqafHimgk47/23/2025 7:17 PM [facility] LABGlucose, Ur NegativeNegative mg/dL02/14/2025 7:17 PM [facility] Bilirubin, VbjymFutatzqcUzenqvet02/23/2025 7:17 PM [facility] LABKetones, UrineNegativeNegative mg/dL02/14/2025 7:17 PM [facility] LABSpecific [place], UA1.0251.005 - 1.9345302/14/2025 7:17 PM [facility] LABBlood, RuyhqXfyiyowrAykhthib50/23/2025 7:17 PM [facility] LABpH, Urine6.05.0 - 9.011 7:17 PM [facility] LABProtein, UANegativeNegative mg/dL 02/14/2025 7:17 PM [facility] LABUrobilinogen, Urine0.2 <2.0 E.U./dL02/14/2025 7:17 PM [facility] LABNitrite, BdcybNenruxijVcmesbll48/23/2025 7:17 PM [facility] Leukocyte Esterase, JmtrdDndtwoxfXyytxazu93/23/2025 7:17 PM [facility] LABUrine Reflex to CultureNot Gmvsafgmt35/23/2025 7:17 PM EST [facility] LABSpecimen (Source)Anatomical Location / LateralityCollection Method / VolumeCollection TimeReceived TimeUrine 02/14/2025 7:14 PM EST02/14/2025 7:14 PM EST Narrative Authorizing ProviderResult TypeResult StatusTara S Segovia DOURINE ORDERABLES Final ResultPerforming OrganizationAddressCity/State/ZIP CodePhone Number [facility] [address] [id number], [facility] [phone] * EKG 12 Lead (02/14/2025 5:44 PM EST)ComponentValueRef RangeTest MethodAnalysis TimePerformed AtPathologist SignatureVentricular Hniw63DZRQVDD MUSEAtrial Rate 78BPMMALZ MUSEP-R Jbumvyic984ebTRAY MUSEQRS Bbcvatxo42bnREYR MUSEQ-T Interval 416msMALZ MUSEQTc Calculation (Griselda)474msMALZ MUSEP Cscy42cwmaizmZAAK MUSER Ncja90gvxyyksJAYC MUSET Fjab06ntgqtqkVZBH MUSEDiagnosisNormal sinus rhythm Low voltage QRS Borderline ECG No previous ECGs available Confirmed by HIRAL MERCER ([id number]) on 02/15/2025 10:54:24 AM [facility] PURCELLSpecimen (Source)Anatomical Location / LateralityCollection Method / VolumeCollection TimeReceived Time02/14/2025 5:44 PM EST Narrative Authorizing ProviderResult TypeResult StatusTara [facility] ORDERABLESFinal ResultPerforming OrganizationAddressCity/State/ZIP CodePhone Number [facility] * (ABNORMAL) CBC with Auto Differential (02/14/2025 5:30 PM EST)ComponentValue Ref RangeTest MethodAnalysis TimePerformed AtPathologist SignatureWBC7.84.0 - 10.0 K/uL02/14/2025 5:32 PM [facility] LABRBC4.543.93 - 5.22 M/uL02/14/2025 5:32 PM [facility] FRLFkulljqtzk20.2 11.2 - 15.7 g/dL02/14/2025 5:32 PM [facility] Tejtztlvyj78.437.0 - 47.0 %02/14/2025 5:32 PM [facility] JYMXVS36.279.4 - 94.8 fL02/14/2025 5:32 PM [facility] LAB MCH29.125.6 - 32.2 pg02/14/2025 5:32 PM [facility] LABMCHC 31.9(L)32.2 - 35.5 %02/14/2025 5:32 PM [facility] LABRDW 13.911.7 - 14.4 %02/14/2025 5:32 PM [facility] LAB Nogamvuzz802312 - 369 K/uL02/14/2025 5:32 PM [facility] LABNeutrophils %62.134.0 - 71.1 %02/14/2025 5:32 PM [facility] LABImmature Granulocytes %0.4%02/14/2025 5:32 PM [facility] LABLymphocytes %28.1%02/14/2025 5:32 PM [facility] LABMonocytes %7.34.7 - 12.5 %02/14/2025 5:32 PM [facility] LABEosinophils %2.00.7 - 5.8 %02/14/2025 5:32 PM [facility] LABBasophils %0.10.1 - 1.2 %02/14/2025 5:32 PM [facility] LABNeutrophils Absolute4.91.6 - 6.1 K/uL02/14/2025 5:32 PM EST [facility] LABImmature Granulocytes #0.0K/uL02/14/2025 5:32 PM [facility] LABLymphocytes Absolute2.21.2 - 3.7 K/uL 02/14/2025 5:32 PM [facility] LABMonocytes Absolute0.60.2 - 0.9 K/uL02/14/2025 5:32 PM [facility] LABEosinophils Absolute0.20.0 - 0.4 K/uL02/14/2025 5:32 PM [facility] LAB Basophils Absolute0.00.0 - 0.1 K/uL02/14/2025 5:32 PM [facility] LABSpecimen (Source)Anatomical Location / LateralityCollection Method / VolumeCollection TimeReceived TimeBloodBLOOD SPECIMEN / Tqzjyni2202/14/2025 5:30 PM EST02/14/2025 5:30 PM EST Narrative Authorizing ProviderResult TypeResult StatusTara S Segovia DOHEMATOLOGY ORDERABLESFinal ResultPerforming OrganizationAddressCity/State/ZIP CodePhone Number [facility] [address] [phone] * Lipase (02/14/2025 5:30 PM EST)ComponentValueRef RangeTest MethodAnalysis Time Performed AtPathologist BgwkrcuuzBtnfkj9147 - 95 U/L104/16/2024 5:56 PM EST [facility] LABSpecimen (Source)Anatomical Location / LateralityCollection Method / VolumeCollection TimeReceived TimeBloodBLOOD SPECIMEN / Xvvlkxc2102/14/2025 5:30 PM EST02/14/2025 5:30 PM EST Narrative Authorizing ProviderResult TypeResult StatusTara S Segovia DOCHEMISTRY ORDERABLES Final ResultPerforming OrganizationAddressCity/State/ZIP CodePhone Number [facility] [address] [phone] * Lactic Acid (02/14/2025 5:30 PM EST)ComponentValueRef RangeTest MethodAnalysis TimePerformed AtPathologist SignatureLactic Acid1.20.5 - 2.2 mmol/L104/16/2024 5:55 PM [facility] LABSpecimen (Source)Anatomical Location / LateralityCollection Method / VolumeCollection TimeReceived TimeBloodBLOOD SPECIMEN / Kitvwql3802/14/2025 5:30 PM EST02/14/2025 5:30 PM EST Narrative Authorizing ProviderResult TypeResult StatusTara S Segovia DOCHEMISTRY ORDERABLES Final ResultPerforming OrganizationAddressCity/State/ZIP CodePhone Number [facility] LAB [address] [phone] * Amylase (02/14/2025 5:30 PM EST)ComponentValueRef RangeTest MethodAnalysis TimePerformed AtPathologist JhddopsolYwaeakt4576 - 93 U/L104/16/2024 5:55 PM [facility] LABSpecimen (Source)Anatomical Location / LateralityCollection Method / VolumeCollection TimeReceived TimeBloodBLOOD SPECIMEN / Hfvktup2302/14/2025 5:30 PM EST02/14/2025 5:30 PM EST Narrative Authorizing ProviderResult TypeResult StatusTa Miracle Segovia DOCHEMISTRY ORDERABLES Final ResultPerforming OrganizationAddressCity/State/ZIP CodePhone Number [facility] [address] [place] [address], [facility] [phone] * (ABNORMAL) CMP (02/14/2025 5:30 PM EST)ComponentValueRef RangeTest Method Analysis TimePerformed AtPathologist OlzzyqszyHvmttf224718 - 144 mEq/L 02/14/2025 5:45 PM [facility] LABPotassium4.23.4 - 4.9 mEq/L104/16/2024 5:45 PM [facility] ENJBxpccjxw04115 - 107 mEq/L104/16/2024 5:45 PM [facility] RDKHZ56232 - 31 mEq/L 02/14/2025 5:56 PM [facility] LABAnion Gap7(L)9 - 15 mEq/L 02/14/2025 5:56 PM [facility] YVFRbveqgn940(H)70 - 99 mg/dL02/14/2025 5:56 PM [facility] QTUBTX130 - 20 mg/dL 02/14/2025 5:56 PM [facility] LABCreatinine0.800.50 - 0.90 mg/dL02/14/2025 5:56 PM [facility] LABEst, Glom Filt Rate >90.0>6002/14/2025 5:56 PM [facility] LABComment: Pediatric calculator link https://www.kidney.org/professionals/kdoqi/gfr_calculatorped Effective Dec 25, 2021 These results are not intended for use in patients <18 years of age. eGFR results are calculated without a race factor using the 2020 CKD-EPI equation. ??Careful clinical correlation is recommended, particularly when comparing to results calculated using previous equations. The CKD-EPI equation is less accurate in patients with extremes of muscle mass, extra-renal metabolism of creatinine, excessive creatinine ingestion, or following therapy that affects renal tubular secretion. Calcium8.88.5 - 9.9 mg/dL02/14/2025 5:56 PM [facility] LAB Total Protein7.16.3 - 8.0 g/dL02/14/2025 5:57 PM [facility] LABAlbumin3.93.5 - 4.6 g/dL02/14/2025 5:55 PM [facility] LAB Total Bilirubin<0.20.2 - 0.7 mg/dL02/14/2025 5:57 PM [facility] LABAlkaline Tusobupjthb59899 - 130 U/L104/16/2024 5:55 PM [facility] LBKDWU406 - 33 U/L104/16/2024 5:55 PM [facility] NNLCOB063 - 35 U/L104/16/2024 5:56 PM [facility] LAB Globulin3.22.3 - 3.5 g/dL02/14/2025 5:57 PM [facility] LAB Specimen (Source)Anatomical Location / LateralityCollection Method / Volume Collection TimeReceived TimeBloodBLOOD SPECIMEN / Cjiokfi9002/14/2025 5:30 PM EST 02/14/2025 5:30 PM EST Narrative Authorizing ProviderResult TypeResult StatusTara S Segovia DOCHEMISTRY ORDERABLES Final ResultPerforming OrganizationAddressCity/State/ZIP CodePhone Number [facility] [address] [place] [address], [facility] [phone] from Last 3 Months Insurance Advance Directives * Full Code (Latest Code Status on File) Date ActivatedDate InactivatedComments11/27/2024 8:07 AM11/27/2024 3:55 PM * Full Code Date ActivatedDate InactivatedComments10/08/2024 12:22 PM10/08/2024 3:36 PM * Full Code Date ActivatedDate AyqkbqarfuqRzckqdlk89/9/2014 5:10 AM01/31/2014 7:41 PM Care Teams Team MemberRelationshipSpecialtyStart DateEnd Date Carole Kent APRN - [employer] MECH[employer]IC [address] [facility] [address] [place] [address] PCP - GeneralNurse Practitioner06/25/24
--- OUTSIDE RECORDS SUMMARY | 2025-03-23 21:23 | XMS_ITS | Clinical Summary ---
Author Organization [facility] Address [address] [place] [address] Care Team Providers Care Yard Goods Salesperson Name Role Phone Carole Huertas VIBRATION TECHNICIAN Primary Care Provider Allergies Active AllergyReactionsCriticalityNoted MfngTvvouzjmZqcezjjurlQavue99/03/2024 GabapentinOther (See Comments),Cwnhfwc1412/09/2023 Leg swelling EdblhekxktfMtzis33/06/2024Hydrocodone-SxojotmrzyeezAdtxy63/12/2023Nabumetone Nausea And Vomiting,Nausea and vomiting,RyhjFdf4901/15/2023enicillinsUnknown 12/29/2023regabalinOther (See Comments),Swelling,Raqsswu7902/06/2024 BLE AcetaminophenLiver Nmavonj7412/29/2023 Medications MedicationSigDispense QuantityRefillsLast FilledStart DateEnd DateStatus ibuprofen (ADVIL,MOTRIN) 800 MG tablet Take 1 (one) tablet (800 mg total) by mouth every 6 (six) hours as needed for pain .Active ketorolac (TORADOL) 10 mg tablet Take 1 (one) tablet (10 mg total) by mouth 3 (three) times a day as needed for pain . 15 tablet 5Active Additional Information Patient not taking.Reported on 03/03/2025 omeprazole (PRILOSEC) 20 MG capsule Take 1 (one) capsule (20 mg total) by mouth daily .Active FLUoxetine (PROZAC) 20 MG capsule Take 3 (three) capsules (60 mg total) by mouth daily .03/03/2025Discontinued (Error) oxyCODONE-acetaminophen (PERCOCET) 5-325 mg per tablet Indications:Lumbar sprain, initial encounterTake 1 (one) tablet by mouth every 6 (six) hours as needed for pain . 12 tablet Discontinued predniSONE (DELTASONE) 50 MG tablet Take 1 (one) tablet (50 mg total) by mouth daily for 7 days . 7 tablet /12/2024Discontinued oxyCODONE-acetaminophen (PERCOCET) 5-325 mg per tablet Indications:Lumbar sprain, initial encounterTake 1 (one) tablet by mouth every 6 (six) hours as needed for pain . 12 tablet /Expired predniSONE (DELTASONE) 50 MG tablet Take 1 (one) tablet (50 mg total) by mouth daily for 7 days . 7 tablet /Expired Encounters DateTypeDepartmentCare PpobKarwresjubl35/10/2025 9:34 AM EST - 03/03/2025 11:08 AM [facility] Emergency Department [address] [place] [address] Dagoberto Butts DO Discharge Disposition: Home03/03/20257880Wswezi59/10/2025 2:51 PM EST - 02/[facility] [address] [place] [phone] Yoan Wilson MD Discharge Disposition: Home02/01/20258661Dccjts84/30/2025 1:40 PM EDT - 01/21/2025 2:45 [facility] [address] [place] [phone] Teresa Lipscomb MD Discharge Disposition: Home01/21/2025Travelfrom Last 3 Months Social History Tobacco UseTypesPacks/DayYears UsedDateSmoking Tobacco: Every DayCigarettes0.5 31.2Started: 12/28/1993Smokeless Tobacco: Never Tobacco Cessation:Ready to Q uit: Not Asked; Counseling Given: Not Answered Alcohol UseStandard Drinks/WeekCommentsNever0 (1 standard drink = 0.6 oz pure alcohol)CommentsNoSex and Gender InformationValueDate RecordedSex Assigned at BirthNot on fileLegal IlmChlseq65/13/2018 12:32 PM EDTGender XkdapdkfElswql95/06/2024 2:38 PM EDTSexual YnxgxknlnasUvnzyuvf42/06/2024 2:38 PM EDT Last Filed Vital Signs Vital SignReadingTime TakenCommentsBlood Wjkmgaqn558/9503/03/2025 9:38 AM EST Lahvf424503/03/2025 9:38 AM ZEXXhrjabdubfh44.8 ??C (98.2 ??F)03/03/2025 9:38 AM ESTRespiratory Jvsw612205/04/2024 10:24 AM ESTOxygen Cnejrfczfs59%03/03/2025 9:38 AM ESTInhaled Oxygen Concentration--Vmbvnt069.9 kg (260 lb)03/03/2025 9:38 AM KEJDsmkau711 cm (5' 3 )02/01/2025 2:56 PM ESTBody Mass Index46.0602/01/2025 2:56 PM EST Plan of Treatment Health MaintenanceDue DateLast DoneCommentsCT Jcyopenqbquy1977Fecal DNA 1977Fecal occult blood test (FOBT,FIT)1977Flexible sigmoidoscopy 1977Wellness Visit1980Depression Screening/Follow-Up (PHQ-2/9) 1989Hepatitis C Lbiyzrufs88/31/1995Hepatitis A Vaccines (1 of 2 - Risk 2- dose series)1996Pneumococcal Vaccine (1 of 2 - PCV)1996 Tetanus/Diphtheria/Pertussis (1 - Tdap)03/24/19962576Olwadhhgz06/31/2017Hepatitis B Vaccines (2 of 3 - 19+ 3-dose series)05/23//4COVID-19 Vaccine (2 - 2024- season)2021Influenza Vaccine (#1)2024Zoster Vaccines (1 of 2)03/24/20274809Zoupwjjmylg81/06//olorectal Cancer Screening/Bicqrqjzyz83/06/2033RSV Vaccines (1 - 1-dose 75+ series)2052HIV IxysthyyyZrpohusqc76/08/2024HIB VaccinesAged OutNo longer eligible based on patient's age to complete this topicHPV VaccinesAged OutNo longer eligible based on patient's age to complete this topicIPV VaccinesAged OutNo longer eligible based on patient's age to complete this topicMeningococcal ACWY VaccineAged Out No longer eligible based on patient's age to complete this topicMeningococcal B VaccineAged OutNo longer eligible based on patient's age to complete this topic Rotavirus VaccinesAged OutNo longer eligible based on patient's age to complete this topic Procedures Procedure NamePriorityDate/TimeAssociated DiagnosisCommentsXR LUMBAR SPINE 2-3 VIEWS (STANDARD)STAT105/04/2024 10:13 AM EST from Last 3 Months Results * XR Lumbar Spine 2-3 Views (Standard) (03/03/2025 10:13 AM EST)Anatomical RegionLateralityModalityT-spine, L-spine, PelvisDigital RadiographySpecimen (Source)Anatomical Location / LateralityCollection Method / VolumeCollection TimeReceived Time03/03/2025 10:26 AM EST Impressions 03/03/2025 10:27 AM EST Wpdc-jc-izptwptf lower lumbar spondylosis. Workstation ID: ?? [id number] Narrative 03/03/2025 10:27 AM EST EXAMINATION: XR LUMBAR SPINE 2-3 VIEWS (STANDARD) ??03/03/2025 10:05 am HISTORY: ORDERING SYSTEM PROVIDED HISTORY: ??Back pain, TECHNOLOGIST PROVIDED HISTORY: Injury/Trauma Reason for exam: back pain Cancer History: n Surgery, RadiationHistory: n Encounter Type: Initial Mechanism of injury: fall ORDERING SYSTEM PROVIDED DIAGNOSIS CODES: COMPARISON: MRI lumbar spine dated 06/28/2024 FINDINGS: Three views. ??Vertebral body heights are preserved. ??Mild intervertebral disc space height loss at L4/5 with endplate hypertrophy. ??Ynvd-vz-ywyemnkc mid through lower lumbar facet hypertrophy. ??No aggressive osseous lesions or bony demineralization. ??Catheter tubing projects at the level of T12/L1. ??Cholecystectomy clips. Procedure Note Asher Rangel, DO - 03/03/2025 EXAMINATION: XR LUMBAR SPINE 2-3 VIEWS (STANDARD) 03/03/2025 10:05 am HISTORY: ORDERING SYSTEM PROVIDED HISTORY: Back pain, TECHNOLOGIST PROVIDED HISTORY: Injury/Trauma Reason for exam: back pain Cancer History: n Surgery, RadiationHistory: n Encounter Type: Initial Mechanism of injury: fall ORDERING SYSTEM PROVIDED DIAGNOSIS CODES: COMPARISON: MRI lumbar spine dated 06/28/2024 FINDINGS: Three views. Vertebral body heights are preserved. Mild intervertebraldisc space height loss at L4/5 with endplate hypertrophy.Liza-mo-afgbzxkd mid through lower lumbar facet hypertrophy. Noaggressive osseous lesions or bony demineralization. Catheter tubingprojects at the level of T12/L1. Cholecystectomy clips. IMPRESSION: Zquw-ov-rxsbzdlb lower lumbar spondylosis. Workstation ID: [id number] Authorizing ProviderResult TypeResult StatusNicholas Peter Butts [facility] DIAGNOSTIC IMAGING ORDERABLESFinal Result from Last 3 Months Insurance Care Teams Team MemberRelationshipSpecialtyStart DateEnd Date Carole Huertas, VIBRATION TECHNICIAN [address] [place] [address] PCP - GeneralNurse Hiddsiamsmaa36/10/25
--- OUTSIDE RECORDS SUMMARY | 2025-03-23 21:23 | XMS_ITS | Clinical Summary ---
Author Organization [facility] Address [address] [place] [address] Care Team Providers Care Guest Services Agent Name Role Phone Unavailable Primary Care Provider Unavailabl e Allergies Active AllergyReactionsCriticalityNoted DateCommentsAcetaminophenOther: See Uedfkvwv47/06/2024 Liver failure. GabapentinOther: See Zdrrupcl82/05/2025 Leg swelling HydrocodoneHives,CsszXvw6901/30/20145045QtxnzexgpmChsebww52/05/2025 Medications MedicationSigDispense QuantityRefillsLast FilledStart DateEnd DateStatus diclofenac (VOLTAREN ARTHRITIS PAIN) 1 % topical gel Apply 4 g to affected area four times daily. 450 g 5Active Social History Tobacco UseTypesPacks/DayYears UsedDateSmoking Tobacco: Never AssessedC UtilitiesAnswerDate RecordedIn the past 12 months has the [employer], gas, oil, or water [employer] threatened to shut off services in your home?No04/02/2024Social Connection and Isolation PanelAnswerDate RecordedIn a typical week, how many times do you talk on the phone with family, friends, or neighbors?More than three times a week04/02/2024How often do you get together with friends or relatives?Once a week04/02/2024How often do you attend jewish or holiness services?Never04/02/2024Do you belong to any clubs or organizations such as jewish groups, unions, fraternal or athletic groups, or school groups?No 04/02/2024How often do you attend meetings of the clubs or organizations you belong to?Never04/02/2024re you , , , , never , or living with a partner?Cqytcnefv95/09/2025UDIT-CAnswerDate Recorded Q1: How often do you have a drink containing alcohol?Never04/02/2024Q2: How many drinks containing alcohol do you have on a typical day when you are drinking? Patient does not drink04/02/2024Q3: How often do you have six or more drinks on one occasion?Never04/02/2024Overall Financial Resource Strain (CARDIA)AnswerDate RecordedHow hard is it for you to pay for the very basics like food, housing, medical care, and heating?Not hard at all04/02/2024PHQ-2AnswerDate RecordedPHQ-2 tgkwm561Finhuntsman mental health institute [place] [facility] [employer] - Occupational Stress QuestionnaireAnswerDate RecordedDo you feel stress - tense, restless, nervous, or anxious, or unable to sleep at night because yourmind is troubled all the time - these days?Rather much04/02/2024Exercise Vital SignAnswerDate RecordedOn average, how many days per week do you engage in moderate to strenuous exercise (like a brisk walk)?0 days04/02/2024On average, how many minutes do you engage in exercise at this level?0 min04/02/2024Hunger Vital SignAnswerDate Recorded Within the past 12 months, you worried that your food would run out before you got the money to buymore.Never true04/02/2024Within the past 12 months, the food you bought just didn't last and you didn't have money to get more.Never true 04/02/2024PRAPARE - TransportationAnswerDate RecordedIn the past 12 months, has lack of transportation kept you from medical appointments or from getting medications?No04/02/2024In the past 12 months, has lack of transportation kept you from meetings, work, or from getting things needed for daily living?No 04/02/2024Housing Stability Vital SignAnswerDate RecordedIn the last 12 months, was there a time when you were not able to pay the mortgage or rent on time?No 04/02/2024Number of Times Moved in the Last YearNot on file04/02/2024Homeless in the Last YearNot on file04/02/2024rea Deprivation IndexAnswerDate Recorded National Score (1-100), lower number is lower qdgg060103/30/2024State Score (1- 10), lower number is lower ofjg09203/30/2024Data from: https://www.neighborhoodatlas.[facility].edu/. Last address used for cy[address]ts[address]03/30/2024CommentsUnknownSex and Gender InformationValueDate RecordedSex Assigned at XxiroWbjuwi19/05/2025 6:23 PM EST Legal TgeMjigyg90/02/2012 9:59 AM ESTGender DjqygpnaLfdrfi40/05/2025 6:23 PM EST Sexual OrientationNot on file Last Filed Vital Signs Vital SignReadingTime TakenCommentsBlood Myrxnenz274/72003/30/2024 2:30 AM EST Hmomx092703/30/2024 2:30 AM FPKLbbdknlkayj13.1 ??C (98.7 ??F)03/29/2024 5:00 PM ESTRespiratory Zkdz925403/30/2024 1:57 AM ESTOxygen Oruaiiwlld28%03/30/2024 2:00 AM ESTInhaled Oxygen Concentration--Weight--Height--Body Mass Index-- Plan of Treatment Health MaintenanceDue DateLast DoneCommentsAnxiety Xazovncpa31/31/1995Depression Ywhngzixj31/31/1995HIV Igifdgprm18/31/1995DTaP,Tdap,Td Vaccine (1 - Tdap) 1996Cervical Cancer Tzsniyrcg14/31/1998Mammogram Logwdfwmt31/31/2017CT Zhisunendgvr65/31/2022Cologuard (FIT-DNA)03/24/20220790Zwlhpcanbqa25/31/2022 Colorectal Cancer Ehmuvdtan73/31/2022Fecal Occult Blood2022Lipid Screening 03/24/20228286Lviigmnpqqhyu53/31/2022Hepatitis B Vaccine (2 of 3 - 19+ 3-dose series)/4Covid-19 Vaccine (2 - 2024-26 season)2024 07/03/2020Influenza Vaccine (#1)2024Diabetes Jgiruhqpb26/21/2028 05/15/2024, 05/14/2024, 05/14/2024, Additional history existsHepatitis C YiytvpkmjXnxxrbaxw67/24/2024, 02/13/2023, 02/13/2023 Procedures Procedure NamePriorityDate/TimeAssociated DiagnosisCommentsBASIC METABOLIC PANEL STAT03/29/2024 6:39 PM EST from Last 3 Months or Most Recently Relevant to Health Maintenance Results * (ABNORMAL) BASIC METABOLIC PANEL (03/29/2024 6:39 PM EST)ComponentValueRef RangeTest MethodAnalysis TimePerformed AtPathologist XohjofwfcVlsffah499(H)74 - 99 mg/dL03/29/2024 7:[address] [facility] LABComment: The [place] Diabetes Association (ADA) provides guidance for cutoff values for fasting glucose andrandom glucose. The ADA defines fasting as no [...] Standards of Medical Care in Diabetes 2016, [place] [employer]. Diabetes Care. 2016.39(Suppl 1). DWK927 - 21 mg/dL03/29/2024 7:[address] [facility] LAB Creatinine0.700.58 - 0.96 mg/dL03/29/2024 7:[address] [facility] RJXHkztuk998939 - 144 mmol/L03/29/2024 7:[address] [facility] LABPotassium3.93.7 - 5.1 mmol/L03/29/2024 7:[address] [facility] UPQPdeqbrca10016 - 107 mmol/L03/29/2024 7:[address] [facility] ZHUWB206(L)22 - 30 mmol/L03/29/2024 7:[address] [facility] LABAnion Oms274 - 15 mmol/L03/29/2024 7:[address] [facility] LABCalcium, Total8.68.5 - 10.2 mg/dL03/29/2024 7:[address] [facility] LABEstimated Glomerular Filtration Rsgd541>=60 mL/min/1.73m 03/29/2024 7:[address] [facility] LABComment:Estimated Glomerular Filtration Rate (eGFR) is calculated using the 2020 CKD-EPI creatinine equation. This equation utilizes serum creatinine, sex, and age as parameters. The creatinine assay has traceable calibration to isotope dilution- mass spectrometry. Refer to KDIGO guidelines for clinical interpretation. In patients with unstable renal function, e.g. those with acute kidney injury, the eGFRmay not accurately reflect actual GFR.Specimen (Source)Anatomical Location / LateralityCollection Method / VolumeCollection TimeReceived TimeBloodBLOOD SPECIMEN / UnknownVenipuncture / Qvpbivq2003/29/2024 6:39 PM EST03/29/2024 6:47 PM EST Narrative Authorizing ProviderResult TypeResult StatusDalton Duron MDLABORATORYFinal Result Performing OrganizationAddressCity/State/ZIP CodePhone Number [facility] [address] [address], from Last 3 Months or Most Recently Relevant to Health Maintenance Insurance
--- OUTSIDE RECORDS SUMMARY | 2025-03-23 21:23 | XMS_ITS | Clinical Summary ---
Author Organization [facility] Address [address] [place] [address] Phone Care Team Providers Care People Greeter Name Role Phone Generic Provider, No Assigned Pcp MD Primary Car e Provider Unavailable Allergies Active AllergyReactionsCriticalityNoted DateCommentsAcetaminophenUnknown,Other 12/27/2023 History of stage III liver fibrosis Liver failure. SxckxntvirAxldb84/03/2024GabapentinHeadache,Obekmbi1512/09/2023 Leg swelling HydrocodoneHives,Unknown,MjbzQsjvif04/08/2014NabumetoneNausea/vomiting,RashLow 3PenicillinsHives,RimoxjdSbptpi20/24/2023 Reported hives as a child. Prescribed cephalexin September 2023 and reported itching only (no rash/hives). Also reports having taken amoxicillin in the past and tolerated. PregabalinSwelling,Thzbpbw8202/06/2024 BLE Medications MedicationSigDispense QuantityRefillsLast FilledStart DateEnd DateStatus albuterol 90 mcg/actuation aerosol powdr breath activated inhaler Indications:Chronic pain syndromeInhale 2 puffs every 4 hours if needed for wheezing or shortness of breath. 1 each 5Active omeprazole (PriLOSEC) [address] capsule Indications:Chronic pain syndromeTake 2 capsules (40 mg) by mouth once daily in the morning. Take before meals. Do not crush or chew. 60 capsule 5Active cyclobenzaprine (Flexeril) 10 mg tablet Indications:Back pain with radiationTake 1 tablet (10 mg) by mouth 3 times a day as needed (back pain). 90 tablet 5Active DULoxetine (Cymbalta) [address] capsule Indications:Back pain with radiationTake 1 capsule (20 mg) by mouth once daily at bedtime. Do not crush or chew. 30 capsule 5Active polyethylene glycol (Glycolax, Miralax) 17 gram packet Indications:Back pain with radiationTake 17 g by mouth once daily. 30 each 5Active Additional Information Patient taking differently:17 g oralDaily PRN, constipation, Informant: Self, Reported on 06/12/2024 hydrOXYzine HCL (Atarax) 25 mg tablet Take 1 tablet (25 mg) by mouth 4 times a day as needed for anxiety.Active zolpidem (Ambien) 10 mg tablet Take 1 tablet (10 mg) by mouth once daily at bedtime.Active SUMAtriptan (Imitrex) 50 mg tablet Indications:Back pain, unspecified back location, unspecified back pain laterality, unspecified chronicity,Acute on chronic back pain,Chronic low back pain with left-sided sciatica, unspecified back pain laterality,Back pain with radiation,Lumbar disc herniation with radiculopathy,Chronic low back pain without sciatica, unspecified back pain laterality,Continuous opioid dependence (Multi)Take 1 tablet (50 mg) by mouth every 2 hours if needed for migraine. May repeat dose once in 2 hours if no relief. Do not exceed 2 doses in 24 hours. 5 tablet 06/14/2024 11:49 AM EDT5Active topiramate (Topamax) 25 mg tablet Indications:Back pain, unspecified back location, unspecified back pain laterality, unspecified chronicity,Acute on chronic back pain,Chronic low back pain with left-sided sciatica, unspecified back pain laterality,Back pain with radiation,Lumbar disc herniation with radiculopathy,Chronic low back pain without sciatica, unspecified back pain laterality,Continuous opioid dependence (Multi)Take 1 tablet (25 mg) by mouth 2 times a day. 60 tablet 06/14/2024 11:49 AM EDT5Active naloxone (Narcan) 4 mg/0.1 mL nasal spray Indications:opioid overdose,opioid-induced respiratory depressionAdminister 1 spray (4 mg) into affected nostril(s) if needed for opioid reversal or respiratory depression. May repeat every 2-3 minutes if needed, alternating nostrils, until medical assistance becomes available. 2 each 11:49 AM EDT5Active oxyCODONE (Roxicodone) 5 mg immediate release tablet Indications:Back pain, unspecified back location, unspecified back pain laterality, unspecified chronicity,Acute on chronic back pain,Chronic low back pain with left-sided sciatica, unspecified back pain laterality,Back pain with radiation,Lumbar disc herniation with radiculopathy,Chronic low back pain without sciatica, unspecified back pain laterality,Continuous opioid dependence (Multi)Take 1 tablet (5 mg) by mouth every 6 hours if needed for moderate pain (4 - 6). 15 tablet 5Active lidocaine 4 % patch Indications:Chronic back pain greater than 3 months durationPlace 1 patch over 12 hours on the skin once daily as needed (back pain). Remove & discard patch within 12 hours or as directed by MD. 20 patch 5Active Active Problems ProblemNoted DateDiagnosed DateAcute on chronic back pain5Chronic low back pain with left-sided sciatica, unspecified back pain bqnmhjewmz65/07/2025 Assessment & Plan (05/01/2024 12:43 PM EST): [...] Toradol 30 q6h (can stop if not improving),oxy 5 q4h prn moderate pain, oxy 10 [...] (confirmed on admission) SURROGATE DECISION MAKER: Avery (evin??) [phone] Back pain with fffwkqjja54/04/2024hronic pain vizosjkm66/04/2024Lumbar disc herniation with omcrywgiykrhv73/22/2024Chronic low back pain without sciatica, unspecified back pain cnwtewjeqq01/14/2024Lumbar radiculopathy, acute01/03/2024 Hepatic fibrosis, advanced nuvaupgh45/01/2024 Assessment & Plan (12/24/2023 12:59 PM EDT): [...] 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 Resolved Problems ProblemNoted DateDiagnosed DateResolved DateChronic midline low back pain without evsocnpz02/hronic hepatitis C without hepatic coma Assessment & Plan (04/01/2023 9:14 AM EST): [...] will see this patient in 6 weeks Family History Medical HistoryRelationNameCommentsHeart diseaseFatherLung cancerFatherLung diseaseFatherCOPDMotherLung diseaseMotherRelationNameStatusCommentsFatherMother Social History Tobacco UseTypesPacks/DayYears UsedDateSmoking Tobacco: Every DayCigarettes0.534 Started: 1991Smokeless Tobacco: Never Tobacco Cessation:Ready to Q uit: No; Counseling Given: Yes Alcohol UseStandard Drinks/WeekCommentsNever0 (1 standard drink = 0.6 oz pure alcohol)B1300 Health LiteracyAnswerDate RecordedHow often do you need to have someone help you when you read instructions, pamphlets, or other written material from your doctor or pharmacy?Never06/12/2024HC UtilitiesAnswerDate RecordedIn the past 12 months has the [employer], [employer], oil, or water [employer] threatened to shut off services in your home?No06/12/2024Humiliation, Afraid, Rape, and Kick questionnaireAnswerDate RecordedWithin the last year, have you been afraid of your partner or ex-partner?No03/21/2025Within the last year, have you been humiliated or emotionally abused in other ways by your partner or ex-partner?No06/12/2024Within the last year, have you been kicked, hit, slapped, or otherwise physically hurt by your partner or ex-partner?No06/12/2024Within the last year, have you been raped or forced to have any kind of sexual activity by your partner or ex-partner?No06/12/2024Social Connection and Isolation Panel AnswerDate RecordedIn a typical week, how many times do you talk on the phone with family, friends, or neighbors?More than three times a week06/12/2024How often do you get together with friends or relatives?Twice a week06/12/2024How often do you attend faith or restoration services?Never06/12/2024Do you belong to any clubs or organizations such as faith groups, unions, fraternal or athletic groups, or school groups?No06/12/2024How often do you attend meetings of the clubs or organizations you belong to?Never06/12/2024re you , , , , never , or living with a partner?Kbddcymkk15/21/2025 AUDIT-CAnswerDate RecordedQ1: How often do you have a drink containing alcohol? Never06/12/2024Q2: How many drinks containing alcohol do you have on a typical day when you are drinking?Patient does not drink06/12/2024Q3: How often do you have six or more drinks on one occasion?Never06/12/2024Overall Financial Resource Strain (CARDIA)AnswerDate RecordedHow hard is it for you to pay for the very basics like food, housing, medical care, and heating?Not hard at all 06/12/2024PHQ-2AnswerDate RecordedPatient Health Questionnaire-2 Score0 06/12/2024[facility] [place] [facility] - Occupational Stress QuestionnaireAnswerDate RecordedDo you feel stress - tense, restless, nervous, or anxious, or unable to sleep at night because yourmind is troubled all the time - these days?Not at all06/12/2024Exercise Vital SignAnswerDate RecordedOn average, how many days per week do you engage in moderate to strenuous exercise (like a brisk walk)?0 days06/12/2024On average, how many minutes do you engage in exercise at this level?0 min06/12/2024Hunger Vital SignAnswerDate Recorded Within the past 12 months, you worried that your food would run out before you got the money to buymore.Never true06/12/2024Within the past 12 months, the food you bought just didn't last and you didn't have money to get more.Never true 06/12/2024PRAPARE - TransportationAnswerDate RecordedIn the past 12 months, has lack of transportation kept you from medical appointments or from getting medications?No06/12/2024In the past 12 months, has lack of transportation kept you from meetings, work, or from getting things needed for daily living?No 06/12/2024Housing Stability Vital SignAnswerDate RecordedIn the last 12 months, was there a time when you were not able to pay the mortgage or rent on time?No 06/12/2024In the past 12 months, how many times have you moved where you were living?t any time in the past 12 months, were you homeless or living in a retirement (including now)?No06/12/2024CommentsNoSex and Gender InformationValueDate RecordedSex Assigned at DlimwPqxwxs27/29/2024 6:49 AM EDT Legal NtcPqbuln90/13/2023 10:27 PM EDTGender NbevbrqvOtkazq62/29/2024 6:49 AM EDTSexual OrientationNot on file Last Filed Vital Signs Vital SignReadingTime TakenCommentsBlood Ldmaldty071/33963 5:22 AM EDT Qpfoa651611/10/2024 5:22 AM BYFSnoyxwipepo69.2 ??C (97.2 ??F)11/09/2024 4:13 PM EDTRespiratory Aisu509711/10/2024 5:22 AM EDTOxygen Dkfjtppevu95%11/10/2024 5:22 AM EDTInhaled Oxygen Concentration--Umdmea500 kg (265 lb)11/09/2024 4:13 PM EDT Vwjnos702 cm (5' 3 )11/09/2024 4:13 PM EDTBody Mass Index46.9411/09/2024 4:13 PM EDT Plan of Treatment Health MaintenanceDue DateLast DoneCommentsCT Btwfaydasyzi1977FIT-DNA (Cologuard)1977FIT1977Lipid Panel1977 5903Zhteygxcjtgny1977 Yearly Adult Afbqvbyg1977MMR Vaccines (1 of 1 - Standard series)1978 Hepatitis A Vaccines (1 of 2 - Risk 2-dose series)1996Pneumococcal Vaccine: Pediatrics and At-Risk Adult Patients (1 of 2 - PCV)1996 DTaP/Tdap/Td Vaccines (1 - Tdap)03/24/19991465Wtyelivdn50/31/2017Hepatitis B Vaccines (2 of 2 - CpG 2-dose series)/4COVID-19 Vaccine (2 - season)504/01/2021Influenza Vaccine (#1)2024Diabetes Xzarlwtrr19/18/750137/, 08/28/2024, 07/06/2024, Additional history exists Zoster Vaccines (1 of 2)03/24/20277740Jqbqjydauza46/06/203301/olorectal Cancer Bvwpxpyzv65/06/2033HIV MkabqmgehEjbkvupcf03/08/2024HIB VaccinesAged OutNo longer eligible based on patient's age to complete this topicHPV VaccinesAged OutNo longer eligible based on patient's age to complete this topicIPV Vaccines Aged OutNo longer eligible based on patient's age to complete this topic Meningococcal VaccineAged OutNo longer eligible based on patient's age to complete this topicRotavirus VaccinesAged OutNo longer eligible based on patient's age to complete this topic Medical Devices ImplantedTypeAreaManufacturerDevice IdentifierShelf Expiration DateModel / Serial / LotEterna Implantable Pulse Generator Implanted:Qty: 1 on 09/23/2023 [facility] [employer]06/07/[id number] / [id number] / Description:System cost includes: Generator - [id number] Resident Intern - 68657 Resident Intern Kit, Lumbar - 53537 Patient Magnet - 1210 Eterna Manual with Virtual Clinic - 48608 Patient Controller - 37745 Lead, Octrode - [id number] - [id number] Implanted:Qty: 1 [facility]21[facility] HardwareN/A: Spine LumbarST JOELLEN [id number] / [id number] / N/ALead, Octrode 60cm - [id number] - [id number] Implanted:Qty: 1 on 09/23/2023 [facility] HardwareN/A: BackST JOELLEN [id number]//[id number] / [id number] / Lead, Octrode 60cm - [id number] - [id number] Implanted:Qty: 1 on 09/23/2023 by Elke Adams MD at [facility] HardwareN/A: BackST JOELLEN [id number]//[id number] / [id number] / Lead, Octrode 60cm - [id number] - [id number] Implanted:Qty: 1 on 09/23/2023 by Elke Adams MD at [facility] HardwareN/A: BackST JOELLEN [id number]//[id number] / [id number] / Procedures Procedure NamePriorityDate/TimeAssociated DiagnosisCommentsCOMPREHENSIVE METABOLIC MTFBFWVEN15/18/2025 5:51 PM EDT HIV 1/2 ANTIGEN/ANTIBODY SCREEN [facility] REFLEX TO IMSLZYJDTNAEWwwrxfn29/08/2024 9:02 AM EST Chronic hepatitis C without hepatic coma (Multi) from Last 3 Months or Most Recently Relevant to Health Maintenance Results * Comprehensive metabolic panel (11/09/2024 5:51 PM EDT)ComponentValueRef Range Test MethodAnalysis TimePerformed AtPathologist LoingxfqtVodjxaq1076 - 99 mg/dL LAB CHEMISTRY METHOD 11/09/2024 6:54 PM [facility] ERGAqralp460378 - 145 mmol/L LAB CHEMISTRY METHOD 11/09/2024 6:54 PM [facility] LABPotassium4.03.5 - 5.3 mmol/L LAB CHEMISTRY METHOD 11/09/2024 6:54 PM [facility] MFLYiauxksc97415 - 107 mmol/L LAB CHEMISTRY METHOD 11/09/2024 6:54 PM [facility] JQQVpnlxqocbuc1637 - 32 mmol/L LAB CHEMISTRY METHOD 11/09/2024 6:54 PM [facility] LABAnion Sgy4608 - 20 mmol/L LAB CHEMISTRY METHOD 11/09/2024 6:54 PM [facility] LABUrea Azsbeqmb310 - 23 mg/dL LAB CHEMISTRY METHOD 11/09/2024 6:54 PM [facility] LABCreatinine0.730.50 - 1.05 mg/dL LAB CHEMISTRY METHOD 11/09/2024 6:54 PM [facility] LABeGFR>90>60 mL/min/1.73m*2 LAB CHEMISTRY METHOD 11/09/2024 6:54 PM [facility] LABComment: Calculations of estimated GFR are performed using the 2020 CKD-EPI Study Refit equation without therace variable for the IDMS-Traceable creatinine methods. https://jasn.asnjournals.org/content//ASN.0782777286 Calcium9.38.6 - 10.6 mg/dL LAB CHEMISTRY METHOD 11/09/2024 6:54 PM [facility] LABAlbumin4.53.4 - 5.0 g/dL LAB CHEMISTRY METHOD 11/09/2024 6:54 PM [facility] LABAlkaline Qnnzfblcapd8049 - 110 U/L LAB CHEMISTRY METHOD 11/09/2024 6:54 PM [facility] LABTotal Protein8.16.4 - 8.2 g/dL LAB CHEMISTRY METHOD 11/09/2024 6:54 PM [facility] QSYSYQ624 - 39 U/L LAB CHEMISTRY METHOD 11/09/2024 6:54 PM [facility] LABBilirubin, Total0.40.0 - 1.2 mg/dL LAB CHEMISTRY METHOD 11/09/2024 6:54 PM [facility] YRMMRN845 - 45 U/L LAB CHEMISTRY METHOD 11/09/2024 6:54 PM [facility] LABComment:Patients treated with Sulfasalazine may generate falsely decreased results for ALT.Specimen (Source)Anatomical Location / LateralityCollection Method / VolumeCollection TimeReceived TimeBloodVenous blood specimen / UnknownVenipuncture / Qndtbcr0511/09/2024 5:51 PM EDT11/09/2024 6:19 PM EDT Narrative Authorizing ProviderResult TypeResult StatusMunira Owens [facility] BLOOD ORDERABLESFinal ResultPerforming OrganizationAddressCity/State/ZIP CodePhone Number [facility] [address] [place] [phone] * HIV 1/2 Antigen/Antibody Screen with Reflex to Confirmation (04/01/2023 9:02 AM EST)ComponentValueRef RangeTest MethodAnalysis TimePerformed AtPathologist SignatureHIV 1/2 Antigen/Antibody Screen with Reflex to Confirmation NonreactiveNonreactive LAB IMMUNOASSAY METHOD 04/01/2023 4:20 PM [facility] LABSpecimen (Source)Anatomical Location / Laterality Collection Method / VolumeCollection TimeReceived TimeBloodVenous blood specimen / UnknownVenipuncture / Fsqcecl4004/01/2023 9:02 AM EST04/01/2023 9:02 AM EST Narrative [facility] - 04/01/2023 4:20 PM EST HIV Ag/Ab screen is performed using the Siemens ReelSurfer HIV Ag/Ab Combo assay which detects the presence of HIV p24 antigen as well as antibodies to HIV-1 (Group M and O) and HIV-2. No laboratory evidence of HIV infection. If acute HIV infection is suspected, consider testing for HIV RNA by PCR (viral load). Authorizing ProviderResult TypeResult StatusYash Yuen [facility] BLOOD ORDERABLESFinal ResultPerforming OrganizationAddressCity/State/ZIP CodePhone Number [facility] [address] [place] [phone] from Last 3 Months or Most Recently Relevant to Health Maintenance Insurance Advance Directives For more information, please contact: [phone] (Available ) * Full Code (Latest Code Status on File) Date ActivatedDate BrwvrdkufymRzyyxjrl82/14/2024 1:16 PMQuestionAnswerComments Plan of Care:* Code Status Discussion Not Completed Decision Maker:* Provider Rationale:* Patient condition does not warrant discussion * Full Code Date ActivatedDate InactivatedComments08/21/2023 6:35 AM02/06/2024 1:16 PM QuestionAnswerCommentsPlan of Care:* Code Status Discussion Not Completed Decision Maker:* Provider Rationale:* Patient condition does not warrant discussion NameRelationshipHealthcare Agent RelationshipCommunicationThomas Marla Significant OtherHealth Care Agent* * * [email or web address] Care Teams Team MemberRelationshipSpecialtyStart DateEnd Date Generic Provider, [place] [address] PCP - GeneralGeneral Practice06/27/24
--- OUTSIDE RECORDS SUMMARY | 2025-03-23 21:23 | XMS_ITS | Clinical Summary ---
Author Organization [facility] Address [address] [place] [address] Care Team Providers Care Manager Vehicle Name Role Phone Unavailable Primary Care Provider Unavailabl e Allergies Active AllergyReactionsCriticalityNoted SceiJnkexlekFelkhisvjgp55/27/2025 Clhltgrixjh26/27/4806Tbbfjxyizfnwp65/27/2025 Medications MedicationSigDispense QuantityRefillsLast FilledStart DateEnd DateStatus Cyclobenzaprine 10 MG tablet Take 1 tablet by mouth 3 times daily as needed for Muscle spasms.Active DULoxetine [address] Particles capsule DR Take 20 mg by mouth daily.Active hydrOXYzine HCl 25 MG tablet Take 1 tablet by mouth 3 times daily as needed for Anxiety.Active Ibuprofen 400 MG tablet Take 2 tablets by mouth every 6 hours as needed for Mild Pain.Active Active Problems Patient Care Coordination No te Formatting of this note migh t be different from the original. Patient has no PCP. No additional problems on file Social History Tobacco UseTypesPacks/DayYears UsedDateSmoking Tobacco: Every DayCigarettes Smokeless Tobacco: Never Tobacco Cessation:Ready to Q uit: Not Asked; Counseling Given: Not Answered Alcohol UseStandard Drinks/WeekCommentsNever0 (1 standard drink = 0.6 oz pure alcohol)CommentsNoSex and Gender InformationValueDate RecordedSex Assigned at BirthNot on fileLegal ExeVecvth17/27/2025 5:20 PM EDTGender Identity Not on fileSexual OrientationNot on file Last Filed Vital Signs Vital SignReadingTime TakenCommentsBlood Bkwlinhc844/9404 4:40 PM EDT Yaceo0077 4:40 PM DSWQhxonslylex42.1 ??C (98.8 ??F)07/08/2024 4:40 PM EDTRespiratory Cpyn085807/08/2024 4:40 PM EDTOxygen Xywrubxckl71%07/08/2024 4:40 PM EDTInhaled Oxygen Concentration--Myehqy672.9 kg (260 lb)07/08/2024 4:40 PM LZRWxftbe839 cm (5' 3 )07/08/2024 4:40 PM EDTBody Mass Index46.0607/08/2024 4:40 PM EDT Plan of Treatment Health MaintenanceDue DateLast DoneCommentsHEPATITIS C VIRUS FLUWFSJPH1977 UVQEPJL44 1977HIV SCREENING TLWKBPQRTA08/31/1992PNEUMOCOCCAL VACCINE SERIES (1 of 2 - PCV)1996TDAP (ADULT)1996CERVICAL CANCER SCREENING GEFLFFQBFE08/31/1998LIPID NMUQMKCTE01/31/2017MAMMOGRAM SCREENING DISCUSSION 2017COLORECTAL CANCER SCREENING DYHCZATOCX85/31/2022HEP B VACCINE (2 of 3 - 19+ 3-dose series)402/4COVID-19 VACCINE (2 - 2024- season) /01/2021INFLUENZA VACCINE (#1)2024 [place] [address]
--- OUTSIDE RECORDS SUMMARY | 2025-03-23 21:23 | XMS_ITS | Clinical Summary ---
Author Organization [facility] Address [address] [place] [address] Care Team Providers Care [employer] Name Role Phone Unavailable Primary Care Provider Unavailabl e Social History Tobacco UseTypesPacks/DayYears UsedDateSmoking Tobacco: Never Assessed CommentsUnknownSex and Gender InformationValueDate RecordedSex Assigned at Not on fileLegal ZopAzfgln10/15/2023 6:36 PM EDTGender IdentityNot on fileSexual OrientationNot on file Last Filed Vital Signs Vital SignReadingTime TakenCommentsBlood Imcnzigk924/7607 12:00 PM EDT Pulse--Temperature--Respiratory Rate--Oxygen Saturation--Inhaled Oxygen Concentration--Csvsdm272 kg (230 lb)10/04/2021 12:00 PM DHSTwawnx501.5 cm (5' 2 )10/04/2021 12:00 PM EDTBody Mass Index42.0710/04/2021 12:00 PM EDT Plan of Treatment Not on file Insurance
[2025-03-23] MEDS: PREDNISONE 10 MG TABLET 50 MG PO (21:34)
--- OUTSIDE RECORDS SUMMARY | 2025-03-23 21:34 | XMS_ITS | CCD ---
Author Organization [facility] Care Team Providers Care Snow Groomer Name Role Phone Unavailable Primary Care Provider Unavailparag e ROSHAN ESCOBEDO Primary Care Physician Jd Malone Unavailable Avery Goodman Unavailable [facility] Primary Care Provider DO Aniket Bhandari Emergency Provider MORGAN Romero Attending Provider DO José Miguel Mcnamara Emergency Provider [phone] GINGER Bennett Emergency Provider [phone] ELIZABETH Veliz Attending Provider DO Berto Villasenor Emergency Provider [phone] [facility] Primary Care Provider [phone] DR ZELALEM TRIVEDI Primary Care Unavailable JUAN TRUONG Admitting Unavailable JUAN TRUONG Attending Unavailable DR PROMISE MCKEON Consulting Unavailable JUAN TRUONG Consulting Unavailable ALMAS GRULLON Admitting Unavailable ALMAS GRULLON Attending Unavailable DR ZELALEM TRIVEDI Primary Care Unavailable JOON MOSLEY Consulting Unavailable LEILANI SOLOMON Consulting Unavailable [place] Primary Care Provider GINGER Lamar Emergency Provider [facility] Primary Care Provider DO Berto Villasenor Emergency Provider ELIZABETH Veliz Attending Provider GINGER Lamar Emergency Provider DO Dalton Ceja Emergency Provider [facility] Primary Care Provider [phone] DO Cameron Rene Emergency Provider Unavamaldonado guerrero [facility] Primary Care Provider DO Berto Villasenor Emergency Provider [phone] MD Jorge Dan Emergency Provider Keke Skaggs Unavailable [phone] [facility] Primary Care Provider MD Jorge Dan Emergency Provider [phone] MD Keke Skaggs Attending Provider [phone] Nathalia [facility] Mary Beth E Emergency Provider [phone] [facility] Primary Care Provider GINGER Bennett Emergency Provider Rose Marie Shepherd Unavailable ELIZABETH Veliz Attending Provider ELIZABETH Ferrell Emergency Provider MD Rena Belcher B Emergency Provider Glen Garza Unavailable NONE, XXXX Primary Care Physician Unavailab MD Jorge Samuel Emergency Provider [phone] [facility] Primary Care Provider [phone] Nathalia [facility] Mary Beth E Emergency Provider MD Joe Meza Attending Provider ELZBIETA Shepherd Attending Provider MD Glen Garza S Attending Provider DO Aniket Bhandari Emergency Provider ELIZABETH Carmichael Emergency Provider [phone] GINGER Dowd Emergency Provider [phone] MD Avery Berger Jr Emergency Provider [facility] Primary Care Provider GINGER Bennett Emergency Provider MD RASHAD MCKEON Attending Unavaila david [place] Primary Care Provider Nathalia, [facility] Mary Beth E Emergency Provider [place] Primary Care Provider [phone] ELIZABETH Ferrell Emergency Provider [place] Mary Beth E Emergency Provider [phone] NO FAMILY, PHYSICIAN Primary Care Provider Unava alvaro Bermeo MD, [facility] Primary Care Provider [phone] [place] Primary Care Provider ELIZABETH Ferrell Emergency Provider ELZBIETA Shepherd Attending Provider [place] Primary Care Provider [phone] Nathalia, [facility] Mary Beth E Emergency Provider [phone] MD Glen Garza Attending Provider [place] Primary Care Provider GINGER Bennett Emergency Provider DO Aniket Bhandari Emergency Provider [place] Primary Care Provider [phone] ELIZABETH Ferrell Emergency Provider GINGER Bennett Emergency Provider ELIZABETH Veliz Primary Care Provider [phone] [place] Primary Care Provider Joe Meza Unavailable [place] Primary Care Provider Nathalia, [facility] Mary Beth E Emergency Provider [phone] NON STAFF Primary Care Provider UnavailELIZABETH Monson Emergency Provider Antonio Husain PA-C Primary Care Provider [facility] Primary Care Provider Nathalia [facility] E Emergency Provider ELIZABETH Ferrell Emergency Provider [phone] [facility] Primary Care Provider [phone] ELZBIETA Shepherd Attending Provider TuDO Aniket dupree Emergency Provider Nathalia, [facility] Mary Beth E Emergency Provider ELIZABETH Ferrell Emergency Provider GINGER Bennett Emergency Provider [phone] MD Glen Garza Attending Provider [phone] NO FAMILY, PHYSICIAN Primary Care Provider Unava ilable ELIZABETH Veliz Primary Care Provider NON STAFF Primary Care Provider ELIZABETH Valentin Emergency Provider [facility] Primary Care Provider ELZBIETA Shepherd Attending Provider DO Aniket Bhandari Emergency Provider [facility] Primary Care Provider [phone] ELIZABETH Ferrell Emergency Provider Nathalia [facility] E Emergency Provider [phone] ELZBIETA Shepherd Attending Provider DO Aniket Bhandari Emergency Provider NO FAMILY, PHYSICIAN Primary Care Provider Unava ilable Nathalia [facility] E Emergency Provider MD Glen Garza Attending Provider ELIZABETH Ferrell Emergency Provider [phone] ANTONIO HUSAIN Primary Care Physician [phone] ELIZABETH Veliz Primary Care Provider ELIZABETH Ferrell Emergency Provider [place], [facility] NURSE-BC Mary Beth E Emergency Provider [phone] NO FAMILY, PHYSICIAN Primary Care Provider Unava ilable NON STAFF Primary Care Provider Unavailabl e Mariaelena HOT BLASTERRadha Lewis Emergency Provider [place], INTENSIVE CARE NURSE-BC Mary Beth E Emergency Provider [facility], Services Primary Care Provider [phone] NO FAMILY, PHYSICIAN Primary Care Provider Unava ilable ELIZABETH Huertae A Emergency Provider ELIZABETH Ferrell Emergency Provider Mayra Rosas Primary Care Physician NO FAMILY, PHYSICIAN Primary Care Provider Unava ilable [place], INTENSIVE CARE NURSE-BC Mary Beth E Emergency Provider ELIZABETH Huertae A Emergency Provider ELIZABETH Giraldo Emergency Provider Slime Sherwood DO Primary Care Provider ELIZABETH Ferrell Emergency Provider [place] Primary Care Provider [phone] ELIZABEHT Huerta Kati A Emergency Provider ELIZABETH Giraldo Emergency Provider ELIZABETH Carmichael Emergency Provider DO Aniket Bhandari Emergency Provider [phone] [place] Primary Care Provider [phone] ELIZABETH Ferrell Emergency Provider [place], INTENSIVE CARE NURSE-BC Mary Beth E Emergency Provider Generic Provider MD, No Assigned Pcp Primary Car e Provider Unavailable [facility], Services Primary Care Provider [phone] ELIZABETH Carmichael Emergency Provider Unavailable Primary Care Provider Unavailabl e [place] Primary Care Provider MD Abby Jensen Emergency Provider MD Mora Veliz Emergency Provider DO Dalton Ceja Emergency Provider DO José Miguel Mcnamara Emergency Provider [phone] PCP, No Primary Care Unavailable Flex Veliz Attending Unavailable PCP, No Primary Care Provider UnavailFlex Niño MD Emergency Provider Unavailable DO Aniket Bhandari Emergency Provider [facility] Primary Care Provider ELIZABETH Carmichael Emergency Provider [phone] Generic Provider , No Assigned Pcp Primary Car e Provider Unavailable Hajdari, Astrit H Attending Unavailable Jorge Mcintosh Attending Unavailable Hajdari, Astrit H Attending Unavailable Hajdari, Astrit H Attending Unavailable NO FAMILY, PHYSICIAN Primary Care Provider Unava ilable ELIZABETH Ferrell Emergency Provider Amari SOTO, Marlee Rausch Primary Care Provider [facility], Tracee A Unavailable Unavaila Kristin Young Admitting Unavailable Kristin Bryant Attending Unavailable Ralph INTENSIVE CARE NURSE, Mayra Primary Care Unavailable Ralph INTENSIVE CARE NURSE, Mayra Primary Care Unavailable Mora Avila Admitting Unavailab Mora Flannery Attending Unavailab loretta Rosas INTENSIVE CARE NURSE, Mayra Primary Care Unavailable Daryl Cullen Admitting Unavailable Daryl Cullen Attending Unavailable Susu Lamar PA-C Admitting Unavailable Brianda MILES, Susu E Attending Unavailable Ralph INTENSIVE CARE NURSE, Mayra Primary Care Unavailable Raj Ayers Admitting Unavailable Raj Ayers Attending Unavailable Ralph INTENSIVE CARE NURSE, Mayra Primary Care Unavailable Avelino SEXTON, Natalia Unavailable Unavailable Avelino SEXTON, Natalia Unavailable Unavailable [place] Primary Care Provider Hajdeduard, Astrit H Attending Unavailable [place], [facility] Primary Care Provider DO Dalton Ceja Emergency Provider [phone] DO José Miguel Mcnamara Emergency Provider Tuma, DO Aniket Nguyen Emergency Provider ELIZABETH Carmichael Emergency Provider NO FAMILY, PHYSICIAN Primary Care Provider Unava ilable Mariaelena, HOT BLASTERRadha Lewis Emergency Provider [place], [facility] Mary Beth E Emergency Provider [phone] Avelino SEXTON, Natalia Unavailable Unavailable RAY, JUDAH Admitting Unavailable RAY, JUDAH Attending Unavailable FITZPATRICK, HARMOHINDER S Primary Care Unavailab le RAY, JUDAH Referring Unavailable FITZPATRICK, HARMOHINDER S Primary Care Unavailab le RAY, JUDAH Referring Unavailable FITZPATRICK, HARMOHINDER S Primary Care Unavailab le Marcial DODalton Emergency Provider Naima DOJosé Miguel Emergency Provider [facility] DO, Aniket Nguyen Emergency Provider [phone] Amol HOT BLASTERDeb Ramos Emergency Provider Joshua Ferrell APRN Emergency Provider [facility] Beth Lucero Emergency Provider Narciso Bennett PA-C Emergency Provider [phone] Hajdari, Astrit H Attending Unavailable Nikhil Tubbs Attending Unavailable Jorge Mcintosh Attending Unavailable Hajdari, Astrit H Attending Unavailable Jorge Mcintosh Attending Unavailable Hajdari, Astrit H Attending Unavailable Hajdari, Astrit H Attending Unavailable Dokken Kaylinn A Attending Unavailable Sherron CHAUDHARI Attending Unavailable FARASherron PAGE Attending Unavailable Hajdari, Astrit H Attending Unavailable Chance, Pedro Pablo S. Attending Unavailable Dokken, Kaylinn A Attending Unavailable Chance, Pedro Pablo [...] Tubbs Attending Unavailable Arnaldo, Jorge Attending Unavailable Chance, Pedro Pablo S. Attending Unavailable Annette, Astrit H Attending Unavailable Arnaldo, Jorge Attending Unavailable Mayra Rosas Attending Unavailable Nikhil Tubbs Attending Unavailable Dax Lira Attending Unavailable Ashia Ruiz Attending Unavailable Ashia Ruiz Attending Unavailable Arnaldo, Jorge Attending Unavailable Nikhil Tubbs Attending Unavailable Nikhil Tubbs Attending Unavailable Chance, Pedro Pablo S. Attending Unavailable Hazander, Astrit H Attending Unavailable Nikhil Tubbs Attending Unavailable Arnaldo, Jorge Attending Unavailable Arnaldo, Jorge Attending Unavailable Domenic Sher Attending Unavailable Mayra Rosas Referring Unavailable DO Domenic Sher Admitting Unavailabl e NONE, XXXX Referring Unavailable Dory Shephedr Attending Unavailable GINGER Shepherd Admitting Unavailabl jazmine Mcintosh, Jorge Attending Unavailable Elisa Sánchez Attending Unavailable Nikhil Tubbs Attending Unavailable Roari, Astrit H Attending Unavailable Arnaldo, Jorge Attending Unavailable Nikhil Tubbs Attending Unavailable Nikhil Tubbs Attending Unavailable Pedro Pablo Fletcher SAdrien Attending Unavailable Elisa Sánchez Attending Unavailable Annette, Astrit H Attending Unavailable Nikhil Tubbs Attending Unavailable Jorge Mcintosh Attending Unavailable Arnaldo, Jorge Attending Unavailable Nikhil Tubbs Attending Unavailable FITZPATRICK, HARMOHINDER S Primary Care Physician Jose Alfredo ZAVALAN-WAIVER ANALYSTFelice Primary Care Provider DINO MELGOZA I Attending Unavailable FITZPATRICK, HARMOHINDER S Primary Care Unavailab IVETH Loomis Attending Unavailable FITZPATRICK, HARMOHINDER S Primary Care Unavailab DINO Chun I Attending Unavailable FITZPATRICK, HARMOHINDER S Primary Care Unavailab Nikhil No Attending Unavailable Arnaldo, Jorge Attending Unavailable Nikhil Tubbs Attending Unavailable Nikhil Tubbs Attending Unavailable Unavailable Primary Care Provider Unavailparag e NO FAMILY, PHYSICIAN Primary Care Provider Unava ilable Deb Carmichael APRN Emergency Provider Jorge Mcintosh Attending Unavailable Hajdari, Astrit H Attending Unavailable Jorge Mcintosh Attending Unavailable Marlee Fitzpatrick MD Primary Care Provider Lana GALEANO, Kati Unavailable Unavailable Generic Provider MD, No Assigned Pcp Primary Car e Provider Unavailable CORRY, BIB Referring Unavailable MARLEE FITZPATRICK Primary Care Unavailab le DRAKE KENYON Consulting Unavailable CHIRAG MIGUEL Admitting Unavailable CHIRAG MIGUEL Attending Unavailable Hajdari, Astrit H Attending Unavailable Hajdari, Astrit H Attending Unavailable Nikhil Tubbs Attending Unavailable Jorge Mcintosh Attending Unavailable Nikhil Tubbs Attending Unavailable Jorge Mcintosh Attending Unavailable Arnaldo, Jorge Attending Unavailable Hajdari, Astrit H Attending Unavailable Hamanuelari, Astrit H Attending Unavailable Jorge Mcintosh Attending Unavailable DO Elisa Sánchez Attending Unavailable Jorge Mcintosh Attending Unavailable Hajdari, Astrit H Attending Unavailable Hamanuelari, Astrit H Attending Unavailable Nikhil Tubbs Attending Unavailable NO FAMILY, PHYSICIAN Primary Care Provider Unava ilable Narciso Bennett PA-C Emergency Provider [phone] Marlee Fitzpatrick MD Primary Care Provider NO FAMILY, PHYSICIAN Primary Care Provider Unava ilable Deb Carmichael APRN Emergency Provider Narciso Bennett PA-C Emergency Provider [phone] Joshua Ferrell APRN Emergency Provider Jean-Claude SOTO, [facility] Primary Care Provider [id number] TERRI VERGARA Attending Unavailable KAMBHAMPATI, VINNIE Referring Unavailab le ONEIL, VINNIE Attending Unavailab Kristan Heayl APRN Primary Care Provi evelyn Unavailable Primary Care Provider UnavailKRISTAN Lan Primary Care Physician [phone] Elva Lowe MA L Unavailable [phone] Judi GRAMAJO, Kristan Durant Primary Care P rovider PEPITO LAU Attending Unav ailable PEPITO LAU Admitting Unav ailable Generic Provider , No Assigned Pcp Primary Car e Provider Unavailable DECLAN DEL ANGEL Attending Unavailable SLIME SHERWOOD Primary Care Unavailable FITZPATRICK, HARMOHINDER S Attending Unavailab le GOUDIABY SHELTON Referring Unavailable FITZPATRICK, HARMOHINDER S Primary Care Unavailab le KRISTAN LAU Attending Unavailabl e JUDI, KRISTAN Lopez Attending Unavailabl e KRISTAN LAU Admitting Unavailabl e KRISTAN LAU Attending Unavailabl Jorge Paulino Attending Unavailable DO Elisa Sánchez Attending Unavailable Nikhil Tubbs Attending Unavailable Balbina Bryant Attending Unavailable LYNN SALAS Attending Unavailable CHRISTINEGALALEXYS Referring Unavailable SIEGALALEXYS Attending Unavailable CHRISTINEGALALEXYS Attending Unavailable SIEGAL, ALEXYS Referring Unavailable LYNN SALAS Attending Unavailable Mora Veliz MD Emergency Provider [phone] Yoli JOHNSON - MARINA, Kristan Primary Care Provi evelyn NO FAMILY, PHYSICIAN Primary Care Provider Unava ilable Deb Carmichael APRN Emergency Provider [phone] Narciso Bennett PA-C Emergency Provider Aniket Bhandari DO Emergency Provider NO FAMILY, PHYSICIAN Primary Care Provider Unava ilable Solangee Deb JOHNSON Emergency Provider [phone] Generic Provider , No Assigned Pcp Primary Car e Provider Unavailable Deb Carmichael APRN Emergency Provider Kristan Lau APRN Primary Care Provi evelyn Narciso Bennett PA-C Emergency Provider Saffle HOT BLASTER, Deb N Emergency Provider Ganesh MILES, Hugo De La Rosa Emergency Provider Judi HOT BLASTER, Kristan Durant Primary Care Provi evelyn [facility] Emergency Provider [phone] Narciso Bennett PA-C Emergency Provider [phone] Judi HOT BLASTER, Kristan Durant Primary Care Provi evelyn [facility] N Emergency Provider Judi HOT BLASTER, Kristan Durnat Primary Care Provi evelyn [facility] Deb N Emergency Provider GENERIC PROVIDER, NO ASSIGNED PCP Primary Care Unavailable GENERIC PROVIDER, NO ASSIGNED PCP Primary Care Unavailable GENERIC PROVIDER, NO ASSIGNED PCP Primary Care Unavailable GENERIC PROVIDER, NO ASSIGNED PCP Primary Care Unavailable GENERIC PROVIDER, NO ASSIGNED PCP Primary Care Unavailable FITZPATRICKMARLEE HERRERA S Primary Care Unavailab le GENERIC PROVIDER, NO ASSIGNED PCP Primary Care Unavailable FITZPATRICKMARLEE HERRERA S Primary Care Unavailab le CHIDI JOSEPH Referring Unavailable KRISTAN LAU Primary Care UnavailCHIRAG Helton Referring Unavailab le GENERIC PROVIDER, NO ASSIGNED PCP Primary Care Unavailable GENERIC PROVIDER, NO ASSIGNED PCP Primary Care Unavailable JAROCHO DELATORRE Attending Unavailable FELICE VELIZ Primary Care Unavailable JAROCHO DELATORRE Attending Unavailable CHIDI JOSEPH Referring Unavailable GENERIC PROVIDER, NO ASSIGNED PCP Primary Care Unavailable FITZPATRICKMARLEE HERRERA S Primary Care Unavailab le GENERIC PROVIDER, NO ASSIGNED PCP Primary Care Unavailable FITZPATRICKMARLEE HERRERA S Primary Care Unavailab le JAROCHO DELATORRE Attending Unavailable Kristan Lau APRN Primary Care [facility]Deb Ramos Emergency Provider Narciso Bennett PA-C Emergency Provider [phone] Nisha Carmichael Emergency Provider IWCHO TUBBS Attending Unavailable YOLI, KRISTAN Primary Care Unavailable BILLY KEARNEY Attending Unavailable CIERSKATHY, KRISTAN Primary Care Unavailable JEYSON CABAN Attending Unavailable Kati Huerta APRN Emergency Provider JUDAH WOODARD Attending Unavailable FITZPATRICK, HARMOHINDER S Primary Care Unavailab le RD REZA I Attending Unavailable GENERIC PROVIDER, NO ASSIGNED PCP [...] Unavailable SWEET, ELKE A Attending Unavailable JAROCHO DELATORRE Referring Unavailable GENERIC PROVIDER, NO ASSIGNED PCP Primary Care Unavailable SWEET ELKE A Attending Unavailable FELICE VELIZ Primary Care Unavailable SWEET, ELKE A Attending Unavailable GENERIC PROVIDER, NO ASSIGNED PCP Primary Care Unavailable LILIA GERONIMO Attending Unavailable GENERIC PROVIDER, NO ASSIGNED PCP Primary Care Unavailable SWEET, ELKE A Attending Unavailable GENERIC PROVIDER, NO ASSIGNED PCP Primary Care Unavailable FITZPATRICK, HARMOHINDER S Primary Care Unavailab le SWEET, ELKE A Consulting Unavailable SIMON DOMINGUEZ Admitting Unavailable GOUDIABY, SHELTON Attending Unavailable DINORA PRESTON Admitting Unavailable GOUDIABY, SHELTON Attending Unavailable GENERIC PROVIDER, NO ASSIGNED PCP Primary Care Unavailable JUDAH WOODARD Attending Unavailable FITZPATRICK, HARMOHINDER S Primary Care Unavailab le GENERIC PROVIDER, NO ASSIGNED PCP Primary Care Unavailable BIB BOWMAN Attending Unavailable GENERIC PROVIDER, NO ASSIGNED PCP Primary Care Unavailable JUDAH WOODARD Attending Unavailable FITZPATRICK, HARMOHINDER S Primary Care Unavailab le FITZPATRICK, HARMOHINDER S Primary Care Unavailab le DALTON GREY Attending Unavailable Generic Provider , No Assigned Pcp Primary Car e Provider Unavailable MICHEL CALERO Admitting Unavailable EL-MICHEL ALICIA R Attending Unavailable TRISH KENTN Primary Care Unavailable YUEERSMEGAN CHAVEZLYN Primary Care Unavailable CIERSEZSKI, KRISTAN Primary Care Unavailable CIERSEZSKI, KRISTAN Primary Care Unavailable CIERSEZSKI, KRISTAN Primary Care Unavailable CIERSEZSKI, KRISTAN Primary Care Unavailable MORA AVILA Admitting Unavailab MORA Flannery Attending Unavailab le CIERSEZSKI, KRISTAN Primary Care Unavailable Ciersezwski HOT BLASTER, Kristan Carleen Primary Care Provi evelyn Deb Carmichael APRN Emergency Provider [phone] Mono MILES, Abby Romero Attending Unavaila david Linder HOT BLASTER-WAIVER ANALYST, Daysi Muñoz Attending Unavailable Kailash HOT BLASTER-WAIVER ANALYST, Daysi Muñoz Attending Unavailable Otto MILES, Vivek Villegas Attending Unav ailable CIERSEZSKI, KRISTAN Primary Care Unavailable CIERSEZSKI, KRISTAN Primary Care Unavailable CIERSEZSKI, KRISTAN Primary Care Unavailable CIERSEZSKI, KRISTAN Primary Care Unavailable CIERSEZSKI, KRISTAN Primary Care Unavailable MKI JENKINS Attending Unavailable CIERSEZSKI, KRISTAN Primary Care Unavailable CIERSEZSKI, KRISTAN Primary Care Unavailable CIERSEZSKI, KRISTAN Primary Care Unavailable LILIA CHIN Attending Unavailable CIERSEZSKI, KRISTAN Primary Care Unavailable CIERSEZSKI, KRISTAN Primary Care Unavailable EL-RAVIN, MICHEL R Admitting Unavailable EL-RAVIN, MICHEL R Attending Unavailable CIERSEZSKI, KRISTAN Primary Care Unavailable CIERSEZSKI, KRISTAN Primary Care Unavailable EL-RAVIN, MICHEL R Referring Unavailable CIERSEZSKI, KRISTAN Primary Care Unavailable GENERIC PROVIDER, NO ASSIGNED PCP Primary Care Unavailable FATOU TELLEZ Attending Unavailable GENERIC PROVIDER, NO ASSIGNED PCP Primary Care Unavailable CHIDI JOSEPH Attending Unavailable GENERIC PROVIDER, NO ASSIGNED PCP Primary Care Unavailable GIULIA MAN Admitting Unavailable GIULIA MAN Attending Unavailable BIB BOWMAN Referring Unavailable FITZPATRICK, HARMOHINDER S Primary Care Unavailab le FITZPATRICK, HARMOHINDER S Primary Care Unavailab ALLYSON Khoury Attending Unavailable FITZPATRICK, HARMOHINDER S Primary Care Unavailab ALEN Rosario Attending Unavailable ELKE ADAMS Referring Unavailable GENERIC PROVIDER, NO ASSIGNED PCP Primary Care Unavailable FITZPATRICK, HARMOHINDER S Primary Care Unavailab le SOUDAN, MOHAMAD A Admitting Unavailable SOUDAN, MOHAMAD A Attending Unavailable SOUDAN, MOHAMAD A Consulting Unavailable SOUDAN, MOHAMAD A Referring Unavailable FITZPATRICK, HARMOHINDER S Primary Care Unavailab le LOKESH JOHNSON Consulting Unavailabl e DEXTER, COLLADO-KATHY Q Attending Unavailable DEXTER, COLLADO-KATHY Q Admitting Unavailable GENERIC PROVIDER, NO ASSIGNED PCP Primary Care Unavailable MAGGIE DEGROOT Referring Unavailable GENERIC PROVIDER, NO ASSIGNED PCP Primary Care Unavailable FITZPATRICK, HARMOHINDER S Primary Care Unavailab ALLYSON Garcia Attending Unavailable FITZPATRICK, HARMOHINDER S Primary Care Unavailab ELIF Galan Admitting Unavailab le THAD BURNS Attending Unavailable GENERIC PROVIDER, NO ASSIGNED PCP Primary Care Unavailable LILIA GERONIMO Attending Unavailable GENERIC PROVIDER, NO ASSIGNED PCP Primary Care Unavailable FATOU TELLEZ Attending Unavailable FLEX MALAVE Attending Unavailable GENERIC PROVIDER, NO ASSIGNED PCP Primary Care Unavailable MELODY OWENS Attending Unavailable FLEX MALAVE Referring Unavailable GENERIC PROVIDER, NO ASSIGNED PCP Primary Care Unavailable Kristan Lau APRN Primary Care Provi evelyn Narciso Bennett PA-C Emergency Provider [phone] Deb Carmichael APRN Emergency Provider Jorge Mcintosh Attending Unavailable Jorge Mcintosh Attending Unavailable Cameron Rene Attending Unavailable Jorge Mcintosh Attending Unavailable Cameron Rene Attending Unavailable Jorge Mcintosh Attending Unavailable Kristan Lau APRN Primary Care Provi evelyn Narciso Bennett PA-C Emergency Provider Hugo Andersen PA-C Emergency Provider Kristan Lau Primary Care Unavail able Deb Carmichael Attending Unavailable Deb Carmichael Admitting Unavailable Kristan Lau Primary Care Unavail able Deb Carmichael Admitting Unavailable Saffle, Deb Ramos Attending Unavailable Kristan Lau Primary Care Unavail able Narciso Bennett Admitting Unavailable Narciso Bennett Attending Unavailable Kristan Lau Primary Care Unavail able Narciso Bennett Admitting Unavailable Narciso Bennett Attending Unavailable Kristan Lau Primary Care Unavail able Saffle, Deb N Admitting Unavailable Saffle, Deb N Attending Unavailable Kristan Lau Primary Care Unavail able TuFiorella dupreerick M Admitting Unavailable Tupa Aniket M Attending Unavailable Kristan Lau Primary Care Unavail able Nisha Gonzales Admitting Unavailable Nisha Gonzales Attending Unavailable Solangee, Deb N Attending Unavailable NO FAMILY, PHYSICIAN Primary Care Unavailable Saffle, Deb N Admitting Unavailable Mariaelena, Joshua Admitting Unavailable NO FAMILY, PHYSICIAN Primary Care Unavailable Mariaelena, Joshua Attending Unavailable Amol, Deb N Attending Unavailable NO FAMILY, PHYSICIAN Primary Care Unavailable Saffle, Deb N Admitting Unavailable NO FAMILY, PHYSICIAN Primary Care Unavailable Narciso Bennett Admitting Unavailable Narciso Bennett Attending Unavailable Kristan Lau Primary Care Unavail able Saffle, Deb N Attending Unavailable Solangee, Deb N Admitting Unavailable Kristan Lau Primary Care Unavail able Narciso Bnenett J Admitting Unavailable Narciso Bennett Attending Unavailable Kristan Lau Primary Care Unavail able Narciso Bennett Admitting Unavailable Narciso Bennett Attending Unavailable Seda Huertae Seng Attending Unavailable Kristan Lua Primary Care Unavail able Kati Huerta Admitting Unavailable Kristan Lau Primary Care Unavail able Saffle, Deb N Admitting Unavailable Saffle, Deb N Attending Unavailable Kristan Lau Primary Care Unavail able Saffle, Deb N Attending Unavailable Adrianefle, Deb N Admitting Unavailable Kristan Lau Primary Care Unavail able Saffle, Deb N Admitting Unavailable Saffle, Deb N Attending Unavailable Kristan Lau Primary Care Unavail able Narciso Bennett Admitting Unavailable Narciso Bennett Attending Unavailable Andersen, Hugo W Admitting Unavailable Kristan Lau Primary Care Unavail able Hugo Andersen W Attending Unavailable Kristan Lau Primary Care Unavail able Mora Veliz Admitting Unavailable Mora Veliz Attending Unavailable Kristan Lau Primary Care Unavail able Saffle, Deb N Admitting Unavailable Saffle, Deb N Attending Unavailable Ganesh, Hugo W Admitting Unavailable Kristan Lau Primary Care Unavail able Andersen, Hugo W Attending Unavailable Kristan Lau Primary Care Unavail able Narciso Bennett Admitting Unavailable Narciso Bennett Attending Unavailable Kristan Lau [facility] Unavail able Saffle, Deb N Admitting Unavailable Saffle, Deb N Attending Unavailable Kristan Lau Primary Care Unavail able Narciso Bennett Admitting Unavailable Narciso Bennett Attending Unavailable Kristan Lau [facility] Care Unavail able Narciso Bennett Admitting Unavailable Narciso Bennett Attending Unavailable Saffle, Deb N Attending Unavailable NO FAMILY, PHYSICIAN Primary Care Unavailable Saffle, Deb N Admitting Unavailable NO FAMILY, PHYSICIAN Primary Care Unavailable Narciso Bennett Admitting Unavailable Narciso Bennett Attending Unavailable Bullimore, Mary Beth E Admitting Unavailable NO FAMILY, PHYSICIAN Primary Care Unavailable Bullimore, Mary Beth E Attending Unavailable Saffle, Deb N Attending Unavailable Saffle, Deb N Admitting Unavailable NO FAMILY, PHYSICIAN Primary Care Unavailable Kristan Lau Primary Care Unavail able Narciso Bennett Attending Unavailable Narciso Bennett J Admitting Unavailable Kristan Lau Primary Care Unavail able Saffle, Deb N Admitting Unavailable Saffle, Deb N Attending Unavailable CiKristan sam Primary Care Unavail able Saffle, Deb N Admitting Unavailable Saffle, Deb N Attending Unavailable Ganesh, Hugo W Attending Unavailable Kristan Lau Primary Care Unavail able Ganesh, Hugo W Admitting Unavailable Kristan Lau [facility] Care Unavail able Narciso Bennett Admitting Unavailable Narciso Bennett Attending Unavailable Kristan Lau Primary Care Unavail able Deb Carmichael Admitting Unavailable Deb Carmichael Attending Unavailable Jean-Claude SOTO, [facility] Primary Care Provider [id number] KRISTAN LAU Attending Unavailabl e CIKRISTAN SAM Attending Unavailabl e KRISTAN LAU Attending Unavailabl e JUDI, KRISTAN Lopez Admitting Unavailabl e KRISTAN LAU Referring Unavailabl e Nikhil Tubbs Attending Unavailable Nikhil Tubbs Attending Unavailable Nikhil Tubbs Attending Unavailable Hamanuelari, Astrit H Attending Unavailable KRISTAN LAU Attending Unavailabl e NO, PHYSICIAN Primary Care Unavailable JENNY LR Attending Unavailable JANAY YEN Attending Unavailable BEN URBINA Attending Unavailable JENNIFER PIERCE Attending Unavailable JENNY KING Attending Unavailable COURTNEY ROBISON Attending Unavailable NO, PHYSICIAN Primary Care Unavailable YOGESH MONTES Attending Unavaila ble YOGESH MONTES Attending Unavaila ble NO, PHYSICIAN Primary Care Unavailable MALPHILIP NIETOA Attending Unavailable NO, PHYSICIAN Primary Care Unavailable DAGOBERTO RAY Attending Unava ilable NO, PHYSICIAN Primary Care Unavailable YOGESH MONTES Attending Unavaila ble NO, PHYSICIAN Primary Care Unavailable DAGOBERTO RAY Attending Unava ilable NO, PHYSICIAN Primary Care Unavailable NO, PHYSICIAN Primary Care Unavailable YOGESH MONTES Attending Unavaila ble NO, PHYSICIAN Primary Care Unavailable FRANCESCO FITZPATRICK Attending Unavailab KRISTAN Healy Primary Care Unavailparag e DINORA STOKES Attending Unavailable YOGESH MONTES Attending Unavaila ble NO, PHYSICIAN Primary Care Unavailable Nikhil Tubbs Attending Unavailable Cameron Rene Attending Unavailable Chandana Varela Attending Unavailable Hajdari, Astrit H Attending Unavailable Hajdari, Astrit H Attending Unavailable Hajdari, Astrit H Attending Unavailable Cameron Rene Attending Unavailable Nehemiah Yepez Attending Unavailable Jorge Mcintosh Attending Unavailable Nikhil Tubbs Attending Unavailable Cameron Rene Attending Unavailable Nikhil Tubbs Attending Unavailable Jorge Mcintosh Attending Unavailable YULIET LAU-C KRISTAN Lopez Attending Unav ailEMILY FergusonC KRISTAN Lopez Attending Unav ailable PEPITO LAU Attending Unav ailable EMILY LAUC KRISTAN Lopez Attending Unav ailNikhil Nieves Attending Unavailable Cameron Rene Attending Unavailable Balbina Brynat Attending Unavailable Cameron Rene Attending Unavailable Jorge Mcintosh Attending Unavailable Nikhil Tubbs Attending Unavailable Balbina Bryant Attending Unavailable Jorge Mcintosh Attending Unavailable Mora Waldrop Attending UnavailCameron Schroeder Attending Unavailable Balbina Bryant Attending Unavailable Cameron Rene Attending Unavailable Mora Waldrop Attending UnavailKRISTAN Lan Attending UnavailJorge Izaguirre Attending Unavailable Cameron Rene Attending Unavailable Jorge Mcintosh Attending Unavailable Nikhil Tubbs Attending Unavailable Cameron Rene Attending Unavailable Cameron Rene Attending Unavailable Arnaldo, Jorge Attending Unavailable Nehemiah Yepez Attending Unavailable Cameron Rene Attending Unavailable Chandana Varela Attending Unavailable Nikhil Tubbs Attending Unavailable Allergies Allergy ClassificationReported Allergen(s)Allergy TypeDate of OnsetReaction(s) FacilityAcetaminophen / HYDROcodone (4 sources)Acetaminophen / HYDROcodone; Translations: [acetaminophen-hydrocodone]Drug Kwmhwgd37-58-2003FtyafZnwesvMercy Health Anderson HospitalNSAIDs (4 sources)nabumetone; Translations: [nabumetone]Drug Omsnpud57-66-6915 Nausea/vomiting, RashCleveland ClinicOpioid Agonists (1 source)HYDROcodoneDrug Tzosyup15-25-1888KfakrSt. Vincent Hospital Work Phone: Penicillins (antibiotic) (4 sources)Penicillin; Translations: [penicillin]Drug Sfkgqry90-60-1830Slsxs, [facility] (20 sources)Acetaminophen / HYDROcodone; Translations: [Acetaminophen / Hydrocodone]Drug AllergyUnknon, [facility] (20 sources)Diclofenac; Translations: [DICLOFENAC]Drug Milyewg11-48-6383Ekxed [facility] (20 sources)HYDROcodone; Translations: [Hydrocodone]Drug Yyyrrrr11-06-5873Cvejx, Unknown, RashCrystal Clinic Orthopedic Center (20 sources)Penicillins; Translations: [PENICILLINS]Propensity to adverse kxcupgdkt44-68-5067Bvtbn, UnknownCrystal Clinic Orthopedic Center (20 sources)Penicillin; Translations: [penicillin]Drug Cpnkstb79-78-5785Cslsuqw, [facility]ository (20 sources)Acetaminophen; Translations: [Acetaminophen]Drug Cyhnwqp19-37-0011 Unknown (qualifier value), Unknown, Other: See Comments, Other, Other (See Comments)[facility] Orthopedic CenterComment on above:stage 3 liver fibrosis (20 sources)nabumetone; Translations: [nabumetone]Drug Mangdxw84-45-2640 Nausea/vomiting, Rash, Nausea And VomitingCrystal Clinic Orthopedic Center (20 sources)Acetaminophen / HYDROcodone; Translations: [HYDROCODONE-ACETAMINOPHEN]Drug Nkvnjlx76-47-3871AzwkwOyxekme Health (18 sources)Penicillin G; Translations: [PENICILLIN G]Drug Iitnfxp51-54-3667 [facility] (20 sources)gabapentin; Translations: [GABAPENTIN]Drug Pznsspr82-74-3058 Headache, Other: See Comments, Unknown, Headaches, Other (See Comments) [facility] (15 sources)Acetaminophen; Translations: [Tylenol]Drug AllergyOhiohealth Berger Hospital Repository (20 sources)pregabalin; Translations: [PREGABALIN]Drug Vkvdhfd78-51-7192 Swelling, Unknown, Other (See Comments)[facility] Work Phone: (5 sources)pregabalin; Translations: [Lyrica]Drug AllergyAden[facility] (1 source)acetaminophen containing compounds; Translations: [acetaminophen containing compounds]Propensity to adverse reactions to drug (disorder)[facility] (1 source)DiclofenacDrug Wekharz75-30-1495BasdmimbgCrystal Clinic Orthopedic Center Repository Medications Current Medications MedicationDrug Class(es)DatesSig (Normalized)Sig (Original)0.5 ML tirzepatide 5 MG/ML Injection [Zepbound] (11 sources)Start: 76-05-6317smjsuw 2.5 mg by subcutaneous injection every week Zepbound 2.5 mg/0.5 mL subcutaneous solution 2.5 mg, SubCutaneous, qWeek, # 2 mL, Refills(s) 1, Pharmacy: [facility] #[id number], 160, cm, 11/03/24 15:45:00 EDT, Height/Length Dosing, 123.2, kg, 11/03/24 15:45:00 EDT, Weight Dosing Start Date: 11/03/24 Status: Ordered Quantity: 2.0 Unit: mL Repeat number: 2 Indications: Body mass index [BMI] 45.0-49.9, adult; Obstructive sleep apnea (adult) (pediatric); Atherosclerotic heart disease of [place] coronary artery without angina pectoris;Start: 09-84-2264tatikp 2.5 mg by subcutaneous injection every weekZepbound 2.5 mg/0.5 mL subcutaneous solution 2.5 mg, SubCutaneous, qWeek, # 2 mL, Refills(s) 3, Pharmacy: [facility] #37, 160, cm, 07/21/24 9:58:00 EDT, Height/Length Dosing, 126.6, kg, 07/21/24 9:58:00 EDT, Weight Dosing Start Date: 08/06/24 Status: Ordered Quantity: 2.0 Unit: mL Repeat number: 4 Indications: Obstructive sleep apnea (adult) (pediatric); Sleep apnea, unspecified;acetaminophen 500 mg oral tablet (20 sources)Start: 09-06-2024 End: 04-68-2480renk 1 tablet by mouth four times daily as needed for pain acetaminophen (TYLENOL) 500 MG tablet Take 1 tablet by mouth 4 times daily as needed for Pain 120 tablet 09/06/2024 ActiveStart: 12-19-2023 End: 12-22-8704lkzo 975 mg by mouth once as needed for gycg486 mg, oral, Once, On Shira 12/19/23 at 0040, For 1 dose, If ordered PRN for pain, nurse is permitted to administer this medication for higher pain scores based on patient preference? YesStart: 60-88-6090bsqr 2 tablets by mouth every eight hours as needed for painAcetaminophen (Tylenol Extra Strength) 500 mg tablet Active 1000 MG PO Q8H as needed for pain November 27, 2023 12:00amStart: 62-25-5131onim 650 mg by mouth every six hours as needed for jqgg160 mg, oral, Every 6 hours scheduled, First dose on Sat11/13/23 at 1445, If ordered PRN for pain, nurse is permitted to administer this medication for higher pain scores based on patient preference?YesStart: 11-13-2023 End: 56-46-9470jybx 975 mg by mouth once as needed for laju378 mg, oral, Once, On Sat11/13/23 at 0540, For 1 dose, If ordered PRN for pain, nurse is permitted to administer this medication for higher pain scores based on patient preference? YesStart: 09-23-2023 End: 11-84-8454zxjg 2 tablets by mouth every six hours for painacetaminophen (Tylenol) 325 mg tablet Indications: Acute post-operative pain Take 2 tablets (650 mg) by mouth every 6 hours if needed for mild pain (1 - 3). 30 tablet 09/23/2023 01/04/2024 Discontinued (Stop Taking at Discharge)Start: 08-09-2023 End: 53-03-9464olbuphpqooolj (TYLENOL EXTRA STR) tablet 1,000 mgacetaminophen 325 mg / butalbital 50 mg / caffeine 40 mg oral tablet (5 sources)Barbiturate, Central Nervous System Stimulant, MethylxanthineStart: 62-98-5098njin 1 tablet by mouth every four hours for headache APAP/butalbital/caffeine 325 mg-50 mg-40 mg Tab 1 tab(s), Oral, q4hr for headache, 15 tab(s), Refill(s) 0, [id number], 160, cm, 05/14/23 10:27:00 EST, Height/Length Dosing, 115, kg, 05/14/23 10:27:00 EST, Weight Dosing Start Date: 05/14/23 Status: [id number] 200 actuat albuterol 0.09 mg/actuat metered dose inhaler (20 sources)beta2-Adrenergic AgonistStart: 26-46-1776Gtwiw: 05-02-2024 End: 41-13-9010ibnq 2 puff(s) by inhalation every four hours as neededalbuterol sulfate (PROAIR RESPICLICK) 108 (90 Base) MCG/ACT aerosol powder inhalation Inhale 2 puffs into the lungs every 4 hours as needed 05/02/2024 ActiveStart: .5 mg, nebulization, Once as needed, wheezing, Starting on Shira 02/06/24 at 1704, For 1 dose, Recovery (only)Start: 42.5 mg, nebulization, Once as needed, wheezing, Starting on 09/23/23 at 1113, For 1 dose, Recovery (only)Start: 17-43-7697Qqbgg: 02-02-2020 End: 31-72-9158Llgaiktdf Sulfate 90 mcg/actuation HFA aerosol inhaler Discontinued 2 INH INHALATION EVERY 4-6 HOURS as needed for shortness of breath or wheezing 6.7 February 02, 2020 1:00am June 30, 2020 3:39pmAlbuterol (Eqv- ProAir HFA) 90 mcg/inh inhalation aerosol (3 sources)Start: 02-14-2024 End: 73-58-9184mvrh 2 puff(s) by inhalation every six hoursAlbuterol (Eqv-ProAir HFA) 90 mcg/inh inhalation aerosol 2 puff(s), Inhalation, q6hr for 7 day(s), 6 .7 gm, Refill(s) 0, [facility] #[id number], 160, cm, 02/14/24 12:22:00 EST, Height/Length Dosing, 114.8, kg, 02/14/24 12:22:00 EST, Weight Dosing Start Date: 02/14/24 Stop Date: 02/21/24 Status: Orderedaluminum hydroxide 40 mg/ml / magnesium hydroxide 40 mg/ml / simethicone 4 mg/ml oral suspension (1 source)Start: 76-56-7119udgp 20 mL by mouth every four hours as ayquyc56 mL, oral, Every 4 hours PRN, indigestion, heartburn, Starting on 01/27/24 at 0415 amoxicillin 875 mg / clavulanate 125 mg oral tablet (1 source)Penicillin-class AntibacterialStart: 10-16-2023 End: 96-25-1536jrng 1 tablet by mouth every twelve hoursamoxicillin-pot clavulanate (Augmentin) 875-125 mg tablet Indications: Cellulitis, Skin and Soft Tissue Take 1 tablet by mouth every 12 hours for 10 days. 20 tablet 10/16/2023 11/01/2023 Discontinued(Stop Taking at Discharge)Aspirin / butalbital / Caffeine (2 sources)Start: 08-12-2023 End: 22-09-8329pyhj 1 capsule by mouth every six hours for painFiorinal 325 mg- 50 mg-40 mg Cap 1 cap(s), Oral, q6hr for pain for 3 day(s), 12 cap(s), Refill(s) 0,[id number], 160, cm, 08/12/23 20:54:00 EDT, Height/Length Dosing, 114.7, kg, 08/12/23 20:54:00 EDT, Weight Dosing Start Date: 08/12/23 Stop Date: 08/15/23 Status: Orderedatomoxetine 40 mg oral capsule (1 source)Norepinephrine Reuptake InhibitorStart: 97-83-5433bmxw 1 capsule by mouth once daily in the morningStrattera 40 mg Cap 40 mg = 1 cap(s), Oral, qAM, # 30 cap(s), Refills(s) 5, Pharmacy: [id number], 160, cm, 02/02/25 15:15:00 EST, Height/Length Dosing, 121.6, kg, 02/02/25 15:15:00 EST, Weight Dosing Start Date: 02/02/25 Status: Ordered Medication Dispense Status: Completed Quantity: 30.0 Unit: cap(s) Total Allowed Fills: 6 Fills Dispensed: 0 Indications: Attention-deficit hyperactivity disorder, unspecified type; azithromycin 250 mg Tab 5-day Dose Pack (Z-Aydee) (2 sources)Start: 01-23-2024 End: 24-48-0016snjhlwigtovg 250 mg Tab 5-day Dose Pack (Z-Aydee) = 1 packet(s), Oral, As Directed, as directed on package labeling, X 5 day(s), # 6 tab(s), Refills(s) 0, Pharmacy: [facility]/pharmacy #[id number], 160, cm, 01/23/24 14:03:00 EDT, Height/Length Dosing, 114.8, kg, 01/23/24 14:03:00 EDT, Weight Dosing Start Date: 01/23/24 Stop Date: 01/28/24 Status: Orderedbaclofen 5 mg oral tablet (12 sources)gamma-Aminobutyric Acid-ergic AgonistStart: 08-14-2023 End: 42-64-2939ndtb 1 tablet by mouth three times daily as needed for muscle spasmsbaclofen 5 mg oral tablet 5 mg = 1 tab(s), Oral, TID, take as needed for spasms, X 30 day(s), # 90 tab(s), Refills(s) 1, Pharmacy: [facility]/pharm[facility] #[id number], 160, cm, 08/14/23 15:27:00 EDT, Height/Length Dosing, 113.5, kg, 08/14/23 15:27:00 EDT, Weight Dosing Start Date: 08/14/23 Stop Date: 10/13/23 Status: Orderedbenzocaine 15 mg / menthol 3.6 mg oral lozenge (1 source)Standardized Chemical AllergenStart: lozenge, Mouth/Throat, Every 2 hour PRN, sore throat, Starting on 01/27/24 at 0415 calcium chloride 0.0014 meq/ml / potassium chloride 0.004 meq/ml / sodium chloride 0.103 meq/ml / sodium lactate 0.028 meq/ml injectable solution (5 sources)Start: 02-06-2024 End: 77-21-6830clyi 100 mL intravenously every zizp078 mL/hr, intravenous, Continuous, Starting on Shira 02/06/24 at 1730, For 1 day, Recovery (only)Start: 12-15-2023 End: ,000 mL, intravenous, at 999 mL/hr, Administer over 1 Hours, Once, On 12/15/23 at 1910, For 1 doseStart: 56-47-6743rpvx 100 mL intravenously every mcdx316 mL/hr, intravenous, Continuous, Starting on 09/23/23 at 1130, Recovery (only)Start: 54-33-3118nbna 100 mL intravenously every ylrb858 mL/hr, intravenous, Continuous, Starting on Sat08/21/23 at 1015, Recovery (only)cefdinir 300 mg oral capsule (5 sources)Cephalosporin AntibacterialStart: 02-16-2024 End: 45-54-6979fujg 1 capsule by mouth every twelve hourscefdinir 300 mg Cap 300 mg = 1 cap(s), Oral, q12hr, X 7 day(s), # 14 cap(s), Refills(s) 0, Pharmacy: [facility]/pharmacy #[id number], 160, cm, 02/16/24 9:23:00 EST, Height/Length Dosing, 114.8, kg, 02/16/24 9:23:00 EST, Weight Dosing Start Date: 02/16/24 Stop Date: 02/23/24 Status: OrderedStart: 11-17-2023 End: 27-45-1698tnrx 1 capsule by mouth twice dailycefdinir (Omnicef) 300 mg capsule Indications: Surgical Wound Infection Take 1 capsule (300 mg) by mouth 2 times a day for 18 doses. 18 capsule 11/18/2023 11/28/2023 Activecephalexin 500 mg oral capsule (20 sources)Cephalosporin AntibacterialStart: 08-21-2024 End: 79-79-1970rpnp 2 capsules by mouth twice dailycephALEXin (KEFLEX) 500 MG capsule Take 2 capsules by mouth 2 times daily for 5 days 20 capsule 08/21/2024 08/26/2024 ActiveStart: 11-01-2023 End: 09-12-4834sioa 1 capsule by mouth four times dailycephalexin (Keflex) 500 mg capsule Indications: Wound dehiscence Take 1 capsule (500 mg) by mouth 4times a day for 14 days. 56 capsule 11/01/2023 11/15/2023 ActiveStart: 10-06-2023 End: 26-00-7005nzph 1 capsule by mouth twice dailycephalexin (Keflex) 500 mg capsule Indications: Wound infection Take 1 capsule (500 mg) by mouth 2 times a day for 14 days. 28 capsule 10/06/2023 10/20/2023 ActiveStart: 09-25-2023 End: 71-34-8537wbsq 1 capsule by mouth every six hoursKeflex 500 mg Cap 500 mg = 1 cap(s), Oral, q6hr, X 7 day(s), # 28 cap(s), Refills(s) 0, Pharmacy: [facility]/pharmacy #[id number], 160, cm, 09/25/23 11:43:00 EDT, Height/Length Dosing, 115.3, kg, 09/25/23 11:43:00 EDT, Weight Dosing Start Date: 09/25/23 Stop Date: 10/02/23 Status: OrderedStart: 12-10-2022 End: 84-05-2581vhpt 1 capsule by mouth every eight hoursCephalexin 500 mg capsule Discontinued 500 MG PO Q8H 12 10December 10, 2022 12:00am January 04, 2023 3:19pmStart: 08-29-2017 End: 91-37-5530dcsb 1 capsule by mouth every six hoursCephalexin (Keflex) 500 mg capsule Discontinued 500 MG PO Q6H 40 August 29, 2017 12:00am April 01, 2018 8:03pmciprofloxacin 250 mg oral tablet (2 sources)Quinolone AntimicrobialStart: 02-20-2024 End: 73-28-2574ngbx 1 tablet by mouth every twelve hoursCipro 250 mg Tab 250 mg = 1 tab(s), Oral, q12hr, X 5 day(s), # 10 tab(s), Refills(s) 0, [id number], cm, 02/20/24 16:44:00 EST, Height/Length Dosing, 115, kg, 02/20/24 16:44:00 EST, Weight Dosing Start Date: 02/20/24 Stop Date: 02/25/24 Status: Orderedcollagenase 0.25 unt/mg topical ointment (2 sources)Collagen-specific EnzymeStart: 11-18-2023 End: 80-26-7078aqferosfckw 250 unit/gram ointment Indications: Infection of deep incisional surgical site after procedure, initial encounter , Postoperative infection, unspecified type, initial encounter Apply topically once daily. 30 g 11/18/2023 11/19/2023 Discontinued (Stop Taking at Discharge)Start: 11-14-2023 apply 1 dose topically once dailyTopical, Daily, First dose on Shira 11/14/23 at 0900, Apply to medial back incision; see wound care orders for details cyclobenzaprine hydrochloride 10 mg oral tablet (20 sources)Muscle RelaxantStart: 87-03-4713dbai 1 tablet by mouth three times daily as needed for muscle spasmscyclobenzaprine 10 mg Tab 10 mg = 1 tab(s), Oral, TID, PRN for spasm, # 60 tab(s), Refills(s) 1, Pharmacy: [facility], 160, cm, 02/02/25 15:15:00 EST, Height/Length Dosing, 121.6, kg, 02/02/25 15:15:00 EST, Weight Dosing Start Date: 02/02/25 Status: Ordered Medication Dispense Status: Completed Quantity: 60.0 Unit: tab(s) Total Allowed Fills: 2 Fills Dispensed: 0 Indications: Other muscle spasm;Start: 11-10-2024 take 10 mg by mouth once10 mg, oral, Once, On 11/10/24 at 0525, For 1 dose Start: 06-20-2024 End: 47-35-1730cnbi 1 dose by mouth once10 mg, Oral, ONCE, 1 dose, On 06/20/24 at 1430Start: 02-27-2024 End: 21-80-6950nwgt 1 tablet by mouth three times daily as needed for pain cyclobenzaprine 5 mg Tab 5 mg = 1 tab(s), Oral, TID, PRN Muscle pain, X 7 day(s), # 21 tab(s), Refills(s) 0, Pharmacy: [facility]/pharmacy #[id number], 160, cm, 02/27/24 12:36:00 EST, Height/Length Dosing, 115, kg, 02/27/24 12:36:00 EST, Weight Dosing Start Date: 02/27/24 Stop Date: 03/05/24 Status: OrderedStart: 02-06-2024 End: 80-10-4866gxeq 2 tablets by mouth three times daily as needed for muscle spasmscyclobenzaprine (Flexeril) 5 mg tablet Indications: Lumbar disc herniation with radiculopathy Take 2 tablets (10 mg) by mouth 3 times a day as needed for muscle spasms. 30 tablet 02/06/2024 3:50 PM EST 02/06/2024 03/28/2024 Discontinued (Med List Cleanup)Start: 01-25-2024 End: 27-44-9366izia 1 tablet by mouth three times daily at bedtime cyclobenzaprine 5 mg Tab 5 mg = 1 tab(s), Oral, TID, PRN Pain, Take 1 tablet as needed 3 times daily with 1 dose being at bedtime, X 7 day(s), # 21 tab(s), Refills(s) 0, Pharmacy: [facility]/pharmacy #[id number],160, cm, 01/25/24 15:37:00 EDT, Height/Length Dosing, 114.8, kg, 01/25/24 15:37:00 EDT, Weight Dosing Start Date: 01/25/24 Stop Date: 02/01/24 Status: OrderedStart: 12-30-2023 End: 58-20-3993riiy 5 mg by mouth once5 mg, oral, Once, On 12/30/23 at 1925, For 1 doseStart: 12-07-2023 End: 34-16-1860wima 5 mg by mouth once5 mg, oral, Once, On 12/07/23 at 1535, For 1 doseStart: 12-04-2023 End: 41-82-7959norg 1 tablet by mouth three times dailycyclobenzaprine (FLEXERIL) 5 mg tablet Take 1 Tab by mouth three times a day for 3 days 9 Tab 12/04/2023 12/07/2023 ActiveStart: 09-21-2023 End: 30-28-7620rgvp 1 tablet by mouth three times daily as needed for muscle spasmsCyclobenzaprine 10 mg tablet Discontinued 10 MG PO Three times daily as needed for Muscle Spasm December 02, 2023 12:00am January 26, 2024 12:49pmStart: 09-10-2023 End: 75-67-1412cwpffyfabigrozl (FLEXERIL) tablet 10 mgStart: 01-07-2023 End: 49-90-1757ikhskremeurmcoa (FLEXERIL) 10 mg tablet Take 1 Tab by mouth in the morning and 1 Tab at noon and 1 Tab before bedtime. 07/17/2023 ActiveStart: 12-23-2022 End: 66-32-0900ydmh 1 tablet by mouth three times daily as needed for muscle spasmsCyclobenzaprine 10 mg tablet Discontinued 10 MG PO Three times daily as needed for muscle spasm December 24, 2022 12:00am January 04, 2023 3:20pm Start: 58-92-2610ttux 1 tablet by mouth every twenty-four hoursCyclobenzaprine HCl 5 MG 1 tablet at bedtime as needed Orally Once a day for 30 day(s) Oct,ctiveStart: 10-11-2022 End: 70-20-5430lrho 1 tablet by mouth three times daily as needed for muscle spasmsCyclobenzaprine 10 mg tablet Discontinued 10 MG PO Three times daily as needed for muscle spasm October 16, 2022 5:51pm October 25, 2022 11:29pmStart: 08-31-2022 End: 37-86-4604silw 1 tablet by mouth three times daily as needed for muscle spasmsCyclobenzaprine 10 mg tablet Discontinued 10 MG PO Three times daily as needed for Muscle Spasm August 31, 2022 12:00am September 18, 2022 3:40pmStart: 08-26-2022 End: 21-53-8923Fpffjbduexbwfym 5 mg tablet Discontinued MG August 26, 2022 12:00am September 01, 2022 2:59pmStart: 08-26-2022 End: 66-90-4045Iaquuuvweajknqx Discontinued MG TABLET August 25, 2022 11:00pm September 01, 2022 1:59pmStart: 88-55-1431iayz 1 tablet by mouth every twenty-four hoursCyclobenzaprine HCl 5 MG 1 tablet at bedtime as needed Orally Once a day for 30 day(s) July,ctiveStart: 06-16-2022 End: 39-33-6740uyhb 1 tablet by mouth three times daily as needed for muscle spasmsCyclobenzaprine 10 mg tablet Discontinued 10 MG PO Three times daily as needed for muscle spasm June 16, 2022 12:00am August 13, 2022 5:22pmStart: 03-60-9022jgoa 1 tablet by mouth every eight hours as neededCyclobenzaprine HCl 5 MG 1 tablet Orally every 8 hours as needed for 30 day(s) Dec, Active End: 51-29-6365bfkn 1 tablet by mouth once dailycyclobenzaprine (Flexeril) 10 mg tablet Take 1 tablet (10 mg) by mouth once daily. 12/21/2023 Discontinued Cymbalta 60 mg Cap-DR (9 sources)Start: 93-40-9561hoba 1 capsule by mouth once dailyCymbalta 60 mg Cap-DR = 1 cap(s), Oral, Daily, (do not crush or chew), # 90 cap(s), Refills(s) 0 Start Date: 07/20/24 Status: Ordered Quantity: 90.0 Unit: cap(s) Repeat number: 1dicyclomine hydrochloride 10 mg oral capsule (20 sources)AnticholinergicStart: 98-87-8762llog 2 capsules by mouth four times dailyBentyl 10 mg Cap 20 mg = 2 cap(s), Oral, QID, # 20 cap(s), Refills(s) 0, Pharmacy: [facility] #[id number], 160, cm, 12/24/23 14:30:00 EDT, Height/Length Dosing, 115.2, kg, 12/24/23 14:30:00 EDT, Weight Dosing Start Date: 12/24/23 Status: Ordered Quantity: 20.0 Unit: cap(s) Repeat number: 1Start: 98-72-1144whbv 1 capsule by mouth four times daily as neededBentyl 10 mg Cap 10 mg = 1 cap(s), Oral, QID, PRN Other (see comment), For abdominal cramping, # 12 cap(s), Refills(s) 0, Pharmacy: [facility]/pharmacy #[id number], 160, cm, 06/22/23 14:24:00 EDT, Height/Length Dosing, 118.5, kg, 06/22/23 14:24:00 EDT, Weight Dosing Start Date: 06/22/23 Status: OrderedStart: 06-01-2023 End: 05-93-7881dpav 1 capsule by mouth twice dailyDicyclomine 10 mg capsule Discontinued 10 MG PO Twice daily June 01, 2023 1:00am June 26, 2023 4:40pmStart: 03-19-2022 End: 98-57-7322fpmk 1 tablet by mouth four times dailyDicyclomine 20 mg tablet Discontinued 20 MG PO Four times daily March 19, 2022 1:00am August 26, 2022 3:39pmStart: 03-17-2022 End: 97-36-6889xydm 1 tablet by mouth three times daily as neededDicyclomine 20 mg tablet Discontinued 20 MG PO Three times daily as needed for abdominal March 17, 2022 1:00am March 29, 2022 2:25pmStart: 03-14-2022 End: 11-49-8437juso 1 capsule by mouth twice daily as neededDicyclomine 10 mg capsule Discontinued 10 MG PO Twice daily as needed for abdominal discomfort 6 3 March 14, 2022 8:45pm March 29, 2022 2:25pmdiflunisal 500 mg oral tablet (20 sources)Nonsteroidal Anti-inflammatory DrugStart: 38-56-5094cjzr 1 tablet by mouth every twelve hoursdiflunisal 500 mg Tab 500 mg = 1 tab(s), Oral, q12hr, # 20 tab(s), Refills(s) 0, Pharmacy: [facility]/pharmacy #[id number], 160, cm, 09/02/23 18:11:00 EDT, Height/Length Dosing, 115.5, kg, 09/02/23 18:11:00 EDT, Weight Dosing Start Date: 09/02/23 Status: Ordered Quantity: 20.0 Unit: tab(s) Repeat number: 1docusate sodium 100 mg oral capsule (13 sources)Start: 01-04-2024 End: 24-12-2274zwcf 1 capsule by mouth twice daily in the eveningdocusate sodium (Colace) 100 mg capsule Indications: Left leg weakness Take 1 capsule (100 mg) by mouth 2 times a day. 60 capsule 01/04/2024 1:43 PM EDT 01/04/2024 02/06/2024 Activedocusate sodium 50 mg / sennosides, jail 8.6 mg oral tablet (20 sources)Start: 06-14-2024 End: 08-23-4241fvue 2 tablets by mouth every twelve hours for constipation sennosides-docusate sodium (Judy-Colace) 8.6-50 mg tablet Indications: Back pain, unspecified back location, unspecified back pain laterality, unspecified chronicity , Acute on chronic back pain , Chronic low back pain with left-sided sciatica, unspecified back pain laterality , Back pain with radiation , Lumbar disc herniation with radiculopathy , Chronic low back pain without sciatica, unspecified back pain laterality , Continuous opioid dependence (Multi) Take 2 tablets by mouth every 12 hours if needed for constipation. 30 tablet 06/14/2024 11:49 AM EDT 06/14/2024 07/14/2024 ActiveStart: 07-22-9942puwm 2 tablets by mouth twice daily for constipation2 tablet, oral, 2 times daily, First dose on Sat06/12/24 at 0900, Bowel Regimen - for prevention ofconstipation Hold for loose stoolsStart: 02-06-2024 End: 65-43-6444xket 1 tablet by mouth twice daily in the eveningsennosides- docusate sodium (Judy-Colace) 8.6-50 mg tablet Indications: Lumbar disc herniation with radiculopathy Take 1 tablet by mouth 2 times a day for 14 days. 28 tablet 02/06/2024 3:50 PM EST 02/06/2024 02/20/2024 ActiveStart: 01-27-2024 take 1 tablet by mouth twice daily1 tablet, oral, 2 times daily, First dose on Sat01/27/24 at 1100Start: 09-23-2023 End: 96-72-0808etqj 2 tablets by mouth twice daily for constipation2 tablet, oral, 2 times daily, First dose on Sat11/13/23 at 1445, Bowel Regimen - for prevention ofconstipation Hold for loose stoolsStart: 08-21-2023 End: 10-62-1798tkng 1 tablet by mouth once dailysennosides-docusate sodium (Judy-Colace) 8.6-50 mg tablet Indications: Continuous opioid dependence(Multi) Take 1 tablet by mouth once daily for 7 days. 7 tablet 08/21/2023 08/28/2023 Activedoxycycline hyclate 100 mg oral tablet (2 sources)Tetracycline-class DrugStart: 07-69-4844rijy 1 capsule by mouth twice dailyDoxycycline Hyclate 100 mg capsule Active 100 MG PO twice a day 11 01November 27, 2023 12:00amStart: 10-16-2023 End: 27-34-7360inbcpnkbndq (Vibramycin) 100 mg capsule Indications: Cellulitis, Skin and Soft Tissue Take 1 capsule (100 mg) by mouth every 12 hours for 10 days. Take with at least 8 ounces (large glass) of water, do not lie down for 30 minutes after 20 capsule 10/16/2023 11/01/2023 Discontinued (Stop Taking at Di schar)2 ml droperidol 2.5 mg/ml injection (3 sources)Dopamine-2 Receptor AntagonistStart: .625 mg, intravenous, Once as needed, nausea/vomiting, second line, Starting on Shira 02/06/24 at 1704, For 1 dose, Recovery (only), Monitor QTc while on therapy (2 lead monitoring) Start: .625 mg, intravenous, Once as needed, nausea/vomiting, second line, Starting on 09/23/23 at 1113, For 1 dose, Recovery (only), Monitor QTc while on therapy (2 lead monitoring)Start: .625 mg, intravenous, Once as needed, nausea/vomiting, second line, Starting on Sat08/21/23 at 0946, For 1 dose, Recovery (only), Monitor QTc while on therapy (2 lead monitoring) DULoxetine 30 mg delayed release oral capsule (20 sources)Serotonin and Norepinephrine Reuptake InhibitorStart: 45-56-7356hqoo 1 capsule by mouth once dailyduloxetine 30 mg oral delayed release capsule 30 mg = 1 cap(s), Oral, Daily, # 30 cap(s), Refills(s) 11, Pharmacy: [facility] #[id number], 160, cm, 11/03/24 15:45:00 EDT, Height/Length Dosing, 123.2, kg, 11/03/24 15:45:00 EDT, Weight Dosing Start Date: 11/03/24 Status: Ordered Medication Dispense Status: Completed Quantity: 30.0 Unit: cap(s) Total Allowed Fills: 12 Fills Dispensed: 0 Indications: Dorsalgia, unspecified;Start: 78-27-4350ewgw 1 capsule by mouth once dailyCymbalta 60 mg oral delayed release capsule 60 mg = 1 cap(s), Oral, Daily, # 90 cap(s), Refills(s) 5, Pharmacy: [facility] #[id number], 160, cm, 11/03/24 15:45:00 EDT, Height/Length Dosing, 123.2, kg, 11/03/24 15:45:00 EDT, Weight Dosing Start Date: 11/03/24 Status: Ordered Medication Dispense Status: Completed Quantity: 90.0 Unit: cap(s) Total Allowed Fills: 6 Fills Dispensed: 0Start: 29-27-0704TFHbobbqox (CYMBALTA) 60 mg capsule Take 90 mg by mouth in the morning. 06/23/2024 Active Start: 71-18-8249jamo 1 capsule by mouth once daily at bedtimeDULoxetine (Cymbalta) [address] capsule Indications: Back pain with radiation Take 1 capsule (20 mg)by mouth once daily at bedtime. Do not crush or chew. 30 capsule 2 05/17/2024 ActiveStart: 02-07-2024 End: 84-74-5413ebmy 1 capsule by mouth once dailyDULoxetine (Cymbalta) [address] capsule Indications: Chronic pain syndrome Take 1 capsule (30 mg) bymouth once daily. Do not crush or chew. Start taking after your surgery. Do not fill before February 07, 2024. 30 capsule 02/07/2024 01/28/2024 Discontinued (Stop Taking at Discharge)DULoxetine [address] Particles capsule DR Take 20 mg by mouth daily. Active0.4 ml enoxaparin sodium 100 mg/ml prefilled syringe (5 sources)Low Molecular Weight HeparinStart: 13-10-9691nxmdxv 40 mg by subcutaneous injection every twelve hours40 mg, subcutaneous, Every 12 hours scheduled, First dose on Sat06/12/24 at 0900Start: 92-39-9345qpjzng 40 mg by subcutaneous injection every twelve hours40 mg, subcutaneous, Every 12 hours scheduled, First dose on Sat05/16/24 at 0900Start: 13-53-4485qdahzs 40 mg by subcutaneous injection once daily40 mg, subcutaneous, Daily, First dose on Sat05/01/24 at 1230Start: 53-61-7097ufkewy 40 mg by subcutaneous injection every twelve hours40 mg, subcutaneous, Every 12 hours scheduled, First dose on 10/14/24 at 2205Start: 26-07-6840pvszan 40 mg by subcutaneous injection every twelve hours40 mg, subcutaneous, Every 12 hours scheduled, First dose on Sat01/01/24 at 0900FLUoxetine 20 mg oral capsule (20 sources)Serotonin Reuptake InhibitorStart: 42-94-3107drus 60 mg by mouth once daily60 mg, oral, Daily, First dose on Sat01/27/24 at 0900Start: 01-07-2024 take 60 mg by mouth once daily60 mg, oral, Daily, First dose on Sat01/07/24 at 0900Start: 29-39-6648rdvd 60 mg by mouth once daily60 mg, oral, Daily, First dose on Sat01/02/24 at 0900Start: 56-57-9048kjyf 60 mg by mouth once daily60 mg, oral, Daily, First dose on Sat11/14/23 at 1145Start: 19-47-2880lnxf 60 mg by mouth once daily60 mg, oral, Daily, First dose on Sat10/31/23 at 0900Start: 12-20-2022 End: 30-83-5476mhsq 1 tablet by mouth once dailyFLUoxetine 60 mg oral tablet See Instructions, TAKE 1 TABLET BY MOUTH EVERY DAY, # 90 tab(s), Refills(s) 1, Pharmacy: [id number], 160, cm, 01/14/24 19:22:00 EDT, Height/Length Dosing, 114.8, kg,01/14/24 19:22:00 EDT, Weight Dosing Start Date: 01/21/24 Status: Ordered Quantity: 90.0 Unit: tab(s) Repeat number: 1Start: 06-02-2021 End: 21-51-1697pavl 3 capsules by mouth once dailyFluoxetine (Prozac) 20 mg capsule Discontinued 60 MG PO Daily June 02, 2021 1:00am October 18, 2024 8:49pmStart: 86-07-4584cmds 20 mg by mouth once dailyFluoxetine Active 20 MG PO Daily June 02, 2021 12:00amStart: 34-88-6654vfdl 60 mg by mouth once daily Fluoxetine Active 60 MG PO Daily June 02, 2021 1:00amfluticasone propionate 0.05 mg/actuat metered dose nasal spray (6 sources)CorticosteroidStart: 33-28-4802Goypljt 0.05 mg/inh [place] 2 spray(s), Topical, Daily, 16 gram, Refill(s) 0, each nostril, [id number], 160, cm, 12/13/23 13:44:00 EDT, Height/Length Dosing, 115.2, kg, 12/13/23 13:44:00 EDT, Weight Dosing Start Date: 12/13/23 Status: Ordered End: 81-07-1796otiv 1 spray(s) nasal route once daily as needed for rhinitis fluticasone (Flonase) 50 mcg/actuation nasal spray Administer 1 spray into each nostril once daily as needed for rhinitis or allergies. Shake gently. Before first use, prime pump. After use, clean tip and replace cap. 06/12/2024 Discontinued (Med List Cleanup)Mavyret (20 sources)Start: 36-04-4478srro 3 tablets by mouth once dailyMavyret 3 tab(s), Oral, Daily, Refill(s) 0 Start Date: 06/03/23 Status: OrderedStart: 05-15-2023 Glecaprevir-Pibrentasvir (Mavyret) 100-40 mg tablet Active TAB PO May 15, 2023 12:00amStart: 04-27-2023 End: 61-85-3801lghh 1 tablet by mouth once dailyGlecaprevir-Pibrentasvir (Mavyret) 100-40 mg tablet Discontinued 3 TAB PO Daily May 1541:00am September 08, 2023 6:36pmhandicap lorena (2 sources)Start: 11-17-3418Hxyij: ml heparin sodium, porcine 5000 unt/ml injection (1 source)Unfractionated Heparin, Anti-coagulantStart: 29-17-9137btiwhx 7500 [IU] by subcutaneous injection every eight hours7,500 Units, subcutaneous, Every 8 hours scheduled, First dose [place] 11/14[place]23 [place] [address] ml hydrALAZINE hydrochloride 20 mg/ml injection (2 sources)Arteriolar VasodilatorStart: 18-91-8398sszi 10 mg intravenously every eight hours as oxkllm64 mg, intravenous, Every 8 hours PRN, SBP > 150, Starting on Sat01/07/24 at 2023Start: 61-45-1187xggv 10 mg intravenously every eight hours as eupqpg74 mg, intravenous, Every 8 hours PRN, SPB > 160, Starting on Sat01/03/24 at 1909hydroCHLOROthiazide 25 mg oral tablet (6 sources)Thiazide DiureticStart: 16-04-6376iqcm 1 tablet by mouth once daily hydrochlorothiazide 25 mg Tab 25 mg = 1 tab(s), Oral, Daily, # 30 tab(s), Refills(s) 3, Pharmacy: [facility] #37, 160, cm, 11/03/24 15:45:00 EDT, Height/Length Dosing, 123.2, kg, 11/03/2514:45:00 EDT, Weight Dosing Start Date: 11/03/24 Status: Ordered Medication Dispense Status: Completed Quantity: 30.0 Unit: tab(s) Total Allowed Fills: 4 Fills Dispensed: 0 Indications: Essential (primary) hypertension;hydrOXYzine hydrochloride 25 mg oral tablet (20 sources)AntihistamineStart: 69-93-0832uxht 1 tablet by mouth oncehydrOXYzine hydrochloride 25 mg Tab 25 mg, Oral, Once, # 30 tab(s), Refills(s) 4, Pharmacy: [facility] #37, 160, cm, 11/03/24 15:45:00 EDT, Height/Length Dosing, 123.2, kg, 11/03/24 15:45:00 EDT, Weight Dosing Start Date: 11/03/24 Status: Ordered Quantity: 30.0 Unit: tab(s) Repeat number: 5 Indications: Anxiety disorder, unspecified;Start: 48-92-3884qxvzVYKikru 25 mg, X 1 day(s), Refills(s) 0 Start Date: 06/23/24 Status: Ordered Repeat number: 1Start: 06-13-2024 End: 81-55-4812pwah 25 mg by mouth once25 mg, oral, Once, On 06/13/24 at 0500, For 1 doseStart: 06-11-2024 End: 46-17-5172pqjq 25 mg by mouth once25 mg, oral, Once, On Shira 06/11/24 at 2125, For 1 doseStart: 94-41-7562Fsaik: 10-31-2023 End: 97-05-4982bvxk 1 tablet by mouth three times daily as needed for anxiety hydrOXYzine HCL (Atarax) 25 mg tablet Indications: Chronic pain syndrome Take 1 tablet (25 mg) by mouth 3 times a day as needed for anxiety. 10 tablet 05/02/2024 06/12/2024 Discontinued (Therapy completed)Start: 07-17-2023 End: 12-42-6266wzfaGXJuxtr hydrochloride 25 mg Tab 25 mg = 1 tab(s), Oral, QID, PRN for anxiety, may take 2 at night, 1-2 times daily, X 30 day(s), # 120 tab(s), Refills(s) 3, Pharmacy: [facility]/pharmacy #[id number], 160, cm,07/17/23 8:06:00 EDT, Height/Length Dosing, 116.8, kg, 07/17/23 8:06:00 EDT, Weight Dosing Start Date: 07/17/23 Stop Date: 11/14/23 Status: Orderedtake 1 tablet by mouth four times daily as needed for anxietyhydrOXYzine HCL (Atarax) 25 mg tablet Take 1 tablet (25 mg) by mouth 4 times a day as needed for anxiety. Activeketoconazole 20 mg/ml topical cream (6 sources)Azole AntifungalStart: 10-26-2023 End: 30-90-3581uooiwtrsreyt Top 2% Crm 1 kennedi, Topical, BID for 28 day(s), 60 gm, Refill(s) 0, [facility]/pharmacy #[id number], 160, cm, 10/26/23 2:47:00 EDT, Height/Length Dosing, 116.7, kg, 10/26/23 2:47:00 EDT, Weight Dosing Start Date: 10/26/23 Stop Date: 11/23/23 Status: Ordered End: 18-25-9184anmbregdiyuz (NIZOral) 2 % cream Apply 1 Application topically 2 times a day. 11/14/2023 Discontinued (Non-compliance)labetalol hydrochloride 5 mg/ml injectable solution (1 source)beta-Adrenergic BlockerStart: mg, intravenous, Administer over 1 Minutes, Once as needed, systolic blood pressure greater than 180 mmHg, dystolic blood pressure greater than 100 mmHg and heart rate greater than 60 BPM, Startingon Sat09/23/23 at 1113, For 1 dose, Recovery (only)lidocaine 0.04 mg/mg medicated patch (20 sources)Antiarrhythmic, Amide Local AnestheticStart: mL, IntraDERmal, ONCE PRN, 1 dose, Starting on Shira 10/08/24 at 1200, Until Discontinued, procedure, to be PFStart: patch, TransDERmal, Administer over 12 Hours, ONCE, On 10/24/24 at 2300, For 1 dose, Substituted for Lidocaine 5% Patch. The bit setter's recommendations for the number of patches that can be applied within a 24-hour period varies from 1 to 4 times daily and the duration of application variesfrom 8 to 24 hours; refer to the bit setter's labeling for product-specific recommendations.Start: 06-12-2024 apply 1 dose transdermal route once daily as needed for pain1 patch, transdermal, Administer over 12 Hours, Daily PRN, back pain, Starting on Sat06/12/24 at 0207, Apply to back. Patch will remain on for 12 hours, then removed for [address] patch directly over any surgical incisions or wounds. Start: 45-95-2163zeavv 1 dose transdermal route once daily1 patch, transdermal, Administer over 12 Hours, Daily, First dose on 05/16/24 at 0900Start: 05-02-2024 End: 94-58-8059rfytnhtma (Lidoderm) 5 % patch Indications: Acute exacerbation of chronic low back pain Place 1 patch over 12 hours on the skin once daily. Apply one patch topically once a day for 30 days 30 patch 05/14/2024 06/14/2024 Discontinued (Stop Taking at Discharge)Start: 51-80-3053uesdg 1 dose transdermal route once daily1 patch, transdermal, Administer over 12 Hours, Daily, First dose on Sat05/01/24 at 1225, Lower backStart: 05-01-2024 End: patch, transdermal, Administer over 12 Hours, Once, On Sat05/01/24 at 0415, For 1 dose, Apply to back. Patch will remain on for 12 hours, then removed for [address] patch directly over any surgical incisions or wounds.Start: 90-88-4793gilfe 1 dose transdermal route every twenty-four hours1 patch, transdermal, Administer over 12 Hours, Every 24 hours, First dose on Sat04/24/24 at 0345, Apply to back. Patch will remain on for 12 hours, then removed for [address] patch directly over any surgical incisions or wounds.Start: patch, transdermal, Administer over 12 Hours, Once, On 03/28/24 at 0055, For 1 dose, Apply to left back. Patch will remain on for 12 hours, then removed for [address] patch directly o rashawn any surgical incisions or wounds.Start: patch, transdermal, Administer over 12 Hours, Once, On Shira 03/19/24 at 2030, For 1 dose, Apply tolow back. Patch will remain on for 12 hours, then removed for [address] patch directlyover any surgical incisions or wounds.Start: 86-50-7343xmfsc 1 dose transdermal route once daily1 patch, transdermal, Administer over 12 Hours, Daily, First dose on 01/27/24 at 1115, Apply to lumbar spine area; Patch will remain on for 12 hours, then removed for [address] patch directly over any surgical incisions or wounds.Start: 28-69-7996Efhst: 59-05-3751etfyu 1 dose transdermal route once daily1 patch, transdermal, Administer over 12 Hours, Daily, First dose on Shira 01/02/24 at 0900, Apply to lower back to the left of the spineStart: patch, transdermal, Administer over 12 Hours, Once, On 12/30/23 at 1925, For 1 dose, Apply to b ack. Patch will remain on for 12 hours, then removed for [address] patch directly overany surgical incisions or wounds.Start: 12-21-2023 End: 97-78-6974rrerh 1 dose transdermal route every twelve hours, then apply 1 dose transdermal route every twelvehourslidocaine (Lidoderm) 5 % patch Indications: Acute exacerbation of chronic low back pain Place 1 patch over 12 hours on the skin once daily. Remove & discard patch within 12 hours or as directed by . 15 patch 12/30/2023 01/08/2024 Discontinued (Stop Taking at Discharge)Start: patch, transdermal, Administer over 12 Hours, Once, On Shira 12/19/23 at 0035, For 1 dose, Apply to back. Patch will remain on for 12 hours, then removed for [address] patch directly overany surgical incisions or wounds.Start: 86-80-9604pqoof 1 dose topically once dailylidocaine patch (LIDODERM) 5 % topical patch Apply 1 Patch daily 14 Patch 03/25/2024 ActiveStart: 08-09-2023 End: 00-53-1792Jmktujctt (ASPERCREME) 4 % topical patch 1 PatchStart: 05-20-2023 End: 34-77-0381cafbjtvjk (Xylocaine) 10 mg/mL (1 %) injection 0.5 mLStart: 04-28-2023 End: 94-96-4547bxyyo 1 dose topically once dailylidocaine patch (LIDODERM) 5 % topical patch Apply 1 Patch daily for 15 doses 15 Patch 0 / ActiveStart: 94-62-3289Ijyvgeelp (ASPERCREME) 4 % topical patch 2 PatchStart: 23-39-3919Mlsokman 5% Patch 1 patch(es), Topical, Daily, 7 EA, Refill(s) 0, apply 12 hours on and 12 hours off daily, [facility]/pharmacy #[id number], 160, cm, 01/12/23 20:29:00 EDT, Height/Length Dosing, 114.3, kg, 01/12/23 20:29:00 EDT, Weight Dosing Start Date: 01/12/23 Status: OrderedStart: 08-02-2022 End: 64-90-4400kfnec 1 dose topically every twenty-four hoursLidocaine 5 % adhesive patch,medicated Discontinued 1 PATCH TOPICAL Q24H 15 August 02, 2022 12:00am October 16, 2022 4:13pm leave on most painful area for up to 12 hrs End: 11-30-6088tsvtf 1 dose transdermal route once daily, then apply 1 dose transdermal route every twelve hourslidocaine (Lidoderm) 5 % patch Place 1 patch on the skin once daily. Remove & discard patch within 12 hours or as directed by . 05/02/2024 Discontinued1 ml LORazepam 2 mg/ml injection (10 sources)BenzodiazepineStart: mg, intravenous, Every 30 min PRN, anxiety, Starting on 08/29/24 at 0126, For 2 doses, Prior toMRIStart: 08-21-2024 End: 54-78-4501fgqanb 1 dose intravenously once1 mg, IntraVENous, ONCE, 1 dose, On Sat08/21/24 at 1803, Immediately prior to intravenous use, lorazepam Injection must be diluted with at least an equal volume of compatible solution (NS or D5W).Start: 06-27-2024 End: 52-01-3846heqg 1 mg by mouth once1 mg, oral, Once, On 06/27/24 at 2245, For 1 doseStart: 05-15-2024 End: 09-06-9942krso 1 mg by mouth once1 mg, oral, Once, On Sat05/15/24 at 2330, For 1 doseStart: 04-23-2024 End: 95-14-4250gcwn 2 mg by mouth once2 mg, oral, Once, On Shira 04/23/24 at 2330, For 1 doseStart: 01-10-2024 End: mg, intravenous, Administer over 5 Minutes, Once, On Sat01/10/24 at 2000, For 1 dose, Please give just prior to MRIStart: 01-01-2024 End: 09-03-4024cftw 0.5 mg by mouth once0.5 mg, oral, Once, On Sat01/01/24 at 1425, For 1 doseStart: 12-18-2023 End: mg, intravenous, Administer over 5 Minutes, Once, On Sat12/18/23 at 1900, For 1 doseStart: 12-06-2023 End: mg, intravenous, Administer over 5 Minutes, Once, On Sat12/06/23 at 1935, For 1 doseStart: 11-13-2023 End: .5 mg, intravenous, Administer over 5 Minutes, Once, On Sat11/13/23 at 1645, For 1 doseMedrol Dose Pack as directed (5 sources)Start: 64-44-2575Udvuyy Dose Pack as directed as directed orally as directed Dec, Activemelatonin 10 mg oral tablet (20 sources)Start: 06-14-2024 End: 10-89-8671xetl 1 tablet by mouth once daily as neededMelatonin 10 MG TABS Take 10 mg by mouth nightly as needed 06/14/2024 ActiveStart: 82-02-7640ridu 10 mg by mouth once daily as needed for sleep10 mg, oral, Nightly PRN, sleep, Starting on Sat06/12/24 at 0124Start: 27-77-2549tdtu 3 mg by mouth once daily as needed for sleep3 mg, oral, Nightly PRN, sleep, Starting on Sat01/27/24 at 0415 Start: 01-02-2024 End: 68-54-2702xeoj 6 mg by mouth once6 mg, oral, Once, On Sat01/02/24 at 0230, For 1 doseStart: 38-65-0886xnkk 6 mg by mouth once daily as needed for sleep6 mg, oral, Nightly PRN, sleep, Starting on Sat11/13/23 at 1444methocarbamol 750 mg oral tablet (20 sources)Muscle RelaxantStart: 09-06-2024 End: 36-88-0654toln 1 tablet by mouth four times dailymethocarbamol (ROBAXIN) 750 MG tablet Take 1 tablet by mouth 4 times daily for 10 days 40 tablet 09/16/2024 ActiveStart: 08-28-2024 End: ,000 mg, intravenous, Administer over 5 Minutes, Once, On Sat08/28/24 at 2235, For 1 doseStart: 07-06-2024 End: 69-91-2472jzqs 1000 mg by mouth once1,000 mg, oral, Once, On Sat07/06/24 at 2350, For 1 doseStart: 06-27-2024 End: 39-13-5220ygrs 1000 mg by mouth once1,000 mg, oral, Once, On Sat06/27/24 at 2205, For 1 doseStart: 06-12-2024 End: 38-20-2561jqsd 500 mg by mouth every eight mg, oral, Every 8 hours scheduled, First dose (after last modification) on Sat06/12/24 at 0600,For 2 daysStart: 05-16-2024 End: 19-83-4836081 mg, intravenous, Administer over 5 Minutes, Once, On 05/16/24 at 0125, For 1 doseStart: ,000 mg, intravenous, Administer over 5 Minutes, Once, On Shira 05/14/24 at 1640, For 1 doseStart: 05-14-2024 End: 94-54-0461xwja 1 tablet by mouth three times daily as needed for pain methocarbamol (Robaxin) 500 mg tablet Indications: Acute exacerbation of chronic low back pain Take1 tablet (500 mg) by mouth 3 times a day for 7 days. As needed for pain 21 tablet 05/14/2024 05/16/2024 Discontinued (Therapy completed) Start: 05-01-2024 End: ,000 mg, intravenous, Administer over 5 Minutes, Once, On Sat05/01/24 at 0415, For 1 doseStart: 04-23-2024 End: 51,000 mg, intravenous, Administer over 5 Minutes, Once, On Shira 04/23/24 at 2230, For 1 doseStart: 03-26-2024 End: 59-82-4515qdcw 1 tablet by mouth three times dailyRobaxin 500 mg Tab 500 mg = 1 tab(s), Oral, TID, X 3 day(s), # 9 tab(s), Refills(s) 0, Pharmacy: [facility] /pharmacy #[id number], 160, cm, 03/26/24 19:03:00 EST, Height/Length Dosing, 120.4, kg, 03/26/24 19:03:00EST, Weight Dosing Start Date: 03/26/24 Stop Date: 03/29/24 Status: OrderedStart: 97-91-9366fsqb 2 tablets by mouth three times daily as neededmethocarbamoL (ROBAXIN) 750 mg tablet Take 2 Tab by mouth three times a day as needed 30 Tab 03/25/2024 ActiveStart: 01-27-2024 End: 80-21-6192jvzl 500 mg by mouth three times xzyil644 mg, oral, 3 times daily, First dose on Sat01/27/24 at 0900Start: 91-88-3358hjmc 1000 mg by mouth once1,000 mg, oral, Once, On Sat01/26/24 at 1700, For 1 doseStart: 01-06-2024 take 1 tablet by mouth every eight hours as mg, oral, Every 8 hours PRN, muscle spasms, Starting on Sat01/06/24 at 2200Start: ,000 mg, intravenous, Administer over 5 Minutes, Once, On Sat12/18/23 at 2245, For 1 dose Start: 12-13-2023 End: 07-65-3004bodv 1 tablet by mouth three times dailymethocarbamol (Robaxin) 500 mg tablet Indications: Acute exacerbation of chronic low back pain , Con tusion of lower back, initial encounter Take 1 tablet (500 mg) by mouth 3 times a day for 7 days. 21 tablet 12/21/2023 12/28/2023 ActiveStart: 12-04-2023 End: ,000 mg, Oral, NOW, 1 dose, On Sat12/04/23 at 2310Start: 12-04-2023 End: 46-06-0934bzph 2 tablets by mouth twice daily as neededmethocarbamoL (ROBAXIN) 500 mg tablet Take 2 Tab by mouth two times a day as needed for up to 7 days 28 Tab 12/04/2023 12/11/2023 ActiveStart: 09-02-2023 End: 53-44-5200jazc 1 tablet by mouth three times dailyRobaxin-750 oral tablet 750 mg = 1 tab(s), Oral, TID, X 7 day(s), # 21 tab(s), Refills(s) 0, Pharmacy: [facility]/pharmacy #[id number], 160, cm, 09/02/23 18:11:00 EDT, Height/Length Dosing, 115.5, kg, 09/02/23 18:11:00 EDT, Weight Dosing Start Date: 09/02/23 Stop Date: 09/09/23 Status: OrderedStart: 08-09-2023 End: 11-30-8798guqktsqnkjamM (ROBAXIN) tablet 1,000 mgStart: 08-05-2023 End: 42-02-4977wyjc 2 tablets by mouth four times dailyRobaxin 500 mg Tab 1,000 mg = 2 tab(s), Oral, QID, X 14 day(s), # 112 tab(s), Refills(s) 0, [id number], cm, 08/05/23 20:18:00 EDT, Height/Length Dosing, 114.7, kg, 08/05/23 20:18:00 EDT, Weight Dosing Start Date: 08/05/23 Stop Date: 08/19/23 Status: OrderedStart: 07-26-2023 End: 80-41-2085hagd 1 tablet by mouth three times dailyRobaxin-750 oral tablet 750 mg = 1 tab(s), Oral, TID, X 7 day(s), # 21 tab(s), Refills(s) 0, [id number], cm, 07/26/23 11:12:00 EDT, Height/Length Dosing, 116.8, kg, 07/26/23 11:12:00 EDT, Weight Dosing Start Date: 07/26/23 Stop Date: 08/02/23 Status: OrderedStart: 06-15-2023 End: 12-16-6500egoc 1 tablet by mouth three times dailyRobaxin-750 oral tablet 1,500 mg = 2 tab(s), Oral, TID, X 7 day(s), # 42 tab(s), Refills(s) 0, [id number], cm, 06/15/23 18:08:00 EDT, Height/Length Dosing, 118.5, kg, 06/15/23 18:08:00 EDT, Weight Dosing Start Date: 06/15/23 Stop Date: 06/22/23 Status: OrderedStart: 06-11-2023 End: 06-66-0706uiea 1 tablet by mouth three times dailyRobaxin 500 mg Tab 500 mg = 1 tab(s), Oral, TID, X 3 day(s), # 9 tab(s), Refills(s) 0, Pharmacy: [facility] /pharmacy #[id number], 160, cm, 06/11/23 19:00:00 EDT, Height/Length Dosing, 118.8, kg, 06/11/23 19:00:00EDT, Weight Dosing Start Date: 06/11/23 Stop Date: 06/14/23 Status: OrderedStart: 06-08-2023 End: 79-82-3381pvmx 2 tablets by mouth twice daily as neededmethocarbamoL (ROBAXIN) 500 mg tablet Take 2 Tab by mouth two times a day as needed for up to 5 days 20 Tab 0 06/08/2023 06/13/2023 ActiveStart: 04-28-2023 End: 24-72-2748zrdi 2 tablets by mouth three times daily as neededmethocarbamoL (ROBAXIN) 500 mg tablet Take 2 Tab by mouth three times a day as needed for up to 90 doses 90 Tab 0 04/28/2023 06/08/2023 Discontinued (Therapy Completed) Start: 04-27-2023 End: 86-99-7626kqavpyysllfvK (ROBAXIN) tablet 1,000 mgStart: 04-10-2023 End: 24-43-6331wdjc 1 tablet by mouth three times daily as needed for pain Robaxin-750 oral tablet 750 mg = 1 tab(s), Oral, TID, PRN as needed for pain, X 3 day(s), # 9 tab(s), Refills(s) 0, Pharmacy: [facility]/pharmacy #[id number], 160, cm, 04/10/23 22:09:00 EST, Height/Length Dosing,114.5, kg, 04/10/23 22:09:00 EST, Weight Dosing Start Date: 04/10/23 Stop Date: 04/13/23 Status: OrderedStart: 04-02-2023 End: 94-97-6212iwuo 1 tablet by mouth three times dailyRobaxin 500 mg Tab 500 mg = 1 tab(s), Oral, TID, X 3 day(s), # 9 tab(s), Refills(s) 0, Pharmacy: [facility] /pharmacy #[id number], 160, cm, 04/02/23 21:48:00 EST, Height/Length Dosing, 110, kg, 04/02/23 21:48:00 EST, Weight Dosing Start Date: 04/02/23 Stop Date: 04/05/23 Status: OrderedStart: 02-07-2023 End: 63-37-3897olug 1 tablet by mouth three times dailyRobaxin 500 mg Tab 500 mg = 1 tab(s), Oral, TID, X 3 day(s), # 9 tab(s), Refills(s) 0 Start Date: Stop Date: 02/10/23 Status: OrderedStart: 12-07-2022 End: 49-23-1459gyca 2 tablets by mouth four times dailyRobaxin 500 mg Tab 1,000 mg = 2 tab(s), Oral, QID, X 7 day(s), # 56 tab(s), Refills(s) 0, Pharmacy: [facility]/pharmacy #[id number], 160, cm, 12/07/22 16:52:00 EDT, Height/Length Dosing, 105.1, kg, 12/07/22 16:52:00 EDT, Weight Dosing Start Date: 12/07/22 Stop Date: 12/14/22 Status: OrderedStart: 08-02-2022 End: 12-43-8304cvum 1 tablet by mouth three times dailyMethocarbamol 750 mg tablet Discontinued 750 MG PO Three times daily August 02, 2022 12:00am August 26, 2022 3:39pmmethylPREDNISolone 4 mg oral tablet (20 sources)CorticosteroidStart: 10-13-2024 End: 56-18-2903uhmfloIFBOEQCxzdff (MEDROL DOSEPACK) 4 MG tablet Indications: Failed back syndrome Take by mouth. 21 tablet 10/13/2024 10/19/2024 ActiveStart: 08-20-2024 End: 69-27-0949lopxhuRRVKYCTgnzsx (MEDROL, AYDEE,) 4 MG tablet Take by mouth. 1 kit 08/30/2024 09/06/2024 Discontinued (LIST CLEANUP)Start: 05-18-2024 End: 13-89-8610gimozwWNBQGBGkkmlx (Medrol) tablet 16 mgStart: 05-17-2024 End: 46-38-3849zdap 5 tablets by mouth once daily, then take 4 tablets by mouth once daily, then take 3 tablets bymouth once daily, then take 2 tablets by mouth once daily, then take 1 tablet by mouth once dailymethylPREDNISolone (Medrol) 4 mg tablet Indications: Back pain with radiation Take 5 tablets (20 mg) by mouth once daily for 1 day, THEN 4 tablets (16 mg) once daily for 1 day, THEN 3 tablets (12 mg)once daily for 1 day, THEN 2 tablets (8 mg) once daily for 1 day, THEN 1 tablet (4 mg) once daily for 1 day. 15 tablet 05/17/2024 05/22/2024 ActiveStart: 03-28-2024 End: 01-14-9030393 mg, intravenous, Once, On 03/28/24 at 0345, For 1 dose Start: 08-30-2023 End: 68-53-5662Pamust 4 mg Tab = 1 packet(s), Oral, As Directed, as directed on package labeling, X 6 day(s), # 21tab(s), Refills(s) 0, Pharmacy: [facility]/pharmacy #[id number], 160, cm, 08/30/23 18:16:00 EDT, Height/Length Dosing, 115.5, kg, 08/30/23 18:16:00 EDT, Weight Dosing Start Date: 08/30/23 Stop Date: 09/05/23 Status: OrderedStart: 04-10-2023 End: 49-69-9938Amwijq Dosepack 4 mg Tab = 1 packet(s), Oral, As Directed, as directed on package labeling, X 6 day(s), # 21 tab(s), Refills(s) 0, Pharmacy: [facility]/pharmacy #[id number], 160, cm, 04/10/23 22:09:00 EST, Height/Length Dosing, 114.5, kg, 04/10/23 22:09:00 EST, Weight Dosing Start Date: 04/10/23 Stop Date: 04/16/23 Status: OrderedStart: 01-10-2023 End: 54-89-6372Jiyzyv 4 mg Tab = 1 packet(s), Oral, As Directed, as directed on package labeling, X 6 day(s), # 21tab(s), Refills(s) 0, Pharmacy: [facility]/pharmacy #[id number], 160, cm, 01/10/23 10:36:00 EDT, Height/Length Dosing, 115.7, kg, 01/10/23 10:36:00 EDT, Weight Dosing Start Date: 01/10/23 Stop Date: 01/16/23 Status: OrderedStart: 10-11-2022 End: 98-57-3742Phhbdcrnlamtgepoha 4 mg tablets,dose pack Discontinued 0 PO .COMPLEX October 11, 2022 12:00am October 25, 2022 11:29pm orally per package directionsStart: 10-11-2022 End: 33-64-4086Toboeebhokgdxwjwzc Discontinued 0 PO .COMPLEX October 10, 2022 11:00pm October 25, 2022 10:29pm orally per package directionsStart: 10-11-2022 End: 93-07-8458Tpreijxnwimkbpifrn Discontinued 0 PO .COMPLEX October 11, 2022 12:00am October 25, 2022 11:29pm orally per package directionsStart: 10-11-2022 Methylprednisolone Active 0 PO .COMPLEX October 11, 2022 12:00am orally per package directionsStart: 08-06-2022 End: 07-06-9359Pxfhmmzemgolzboxyk 4 mg tablets,dose pack Discontinued 0 PO .COMPLEX August 06, 2022 12:00am August 13, 2022 5:22pm orally per package directionsStart: 08-06-2022 End: 97-52-8260Errpglqajztqectbht Discontinued 0 PO .COMPLEX August 05, 2022 11:00pm August 13, 2022 4:22pm orally per package directionsStart: 08-06-2022 End: 92-67-5356Kqrucbnsmczlrteddl Discontinued 0 PO .COMPLEX August 06, 2022 12:00am August 13, 2022 5:22pm orally per package directionsStart: 08-06-2022 Methylprednisolone Active 0 PO .COMPLEX August 06, 2022 12:00am orally per package directions5 ml midazolam 1 mg/ml injection (1 source)BenzodiazepineStart: mg, intravenous, Once as needed, anxiety, Starting on Sat09/23/23 at 1113, For 1 dose, Recovery (only)naloxone hydrochloride 40 mg/ml nasal spray (20 sources)Opioid AntagonistStart: 24-94-1302vsljuppy 4 MG/0.1ML LIQD nasal spray 1 spray by Nasal route as needed for Opioid Reversal 2 each 1 07/14/2024 ActiveStart: 71-75-9310bscjcvtg (Narcan) 4 mg/0.1 mL nasal spray Indications: opioid overdose , opioid-induced respiratorydepression Administer 1 spray (4 mg) into affected nostril(s) if needed for opioid reversal or respiratory depression. May repeat every 2-3 minutes if needed, alternating nostrils, until medical assistance becomes available. 2 each 06/14/2024 11:49 AM EDT 06/14/2024 ActiveStart: 32-68-7154Igatc: .2 mg, intravenous, Every 5 min PRN, respiratory depression, Starting on Sat11/13/23 at 1443, If respiratory rate is less than 8 breaths/minute or patient is difficult to arouse stop any narcotics and contact physician. Administer slow IV push. Repeat as ordered until patient's respiratory rate isgreater than 12 breaths/minute.Start: 10-03-2023 End: 53-00-3619bdvyevxi (Narcan) 4 mg/0.1 mL nasal spray Indications: Chronic back pain greater than 3 months duration , Neuropathic pain , Status post insertion of spinal cord stimulator , Acute post-operative pain Administer 1 spray (4 mg) into affected nostril(s) if needed for opioid reversal. May repeat every2-3 minutes if needed, alternating nostrils, until medical assistance becomes available. 2 each 10/03/2023 02/06/2024 Discontinued (Stop Taking at Discharge)Start: 07-51-5340zeeyiksm (Narcan) 4 mg/0.1 mL nasal spray Indications: Chronic back pain greater than 3 months duration , Neuropathic pain , Status post insertion of spinal cord stimulator , Acute post-operative pain Administer 1 spray (4 mg) into affected nostril(s) if needed for opioid reversal. May repeat every2-3 minutes if needed, alternating nostrils, until medical assistance becomes available. 2 each 10/03/2023 ActiveStart: 01-15-2023 End: 03-83-0685jvtuynae (Narcan) 4 mg/0.1 mL nasal spray Indications: Chronic, continuous use of opioids Administer 1 spray (4 mg) into affected nostril(s) if needed for opioid reversal. May repeat every 2-3 minutes if needed, alternating nostrils, until medical assistance becomes available. 2 each 01/15/202307/24 Discontinued (Stop Taking at Discharge)naloxone 0.4 mg in 10 mL sodium chloride syringe (2 sources)Start: 16-48-7297LjpjfESTqhv, PRN, Opioid Reversal, Starting on Sat11/27/24 at 1234, PRN if respiratory rate is less than 6/min and patient is difficult to arouse then notify physician STAT. Mix 9 mL of sodium chloride 0.9% with 0.4 mg (1 mL) of naloxone (NARCAN) in 10 mL syringe. (Note: dilution is 0.04 mg/mL) Give0.08 mg (2 mL of special dilution), slow IV push, repeat up to 0.4 mg (10 mL) or until patient is responsive to physical stimulation and respiratory rate is equal to or greater than 6 breaths/min. Continue to observe, if no response within 3 minutes of administration of 0.4 mg (10 mL) total, repeatdose (0.4 mg as administered previously). Concentration 0.04 mg/mL, PACU onlyStart: 10-08-2024 End: 80-69-1435JietgIYVbmo, PRN, Opioid Reversal, PRN if respiratory rate is less than 6 breaths per min and patient is difficult to arouse., Starting on Shira 10/08/24 at 1200, For 24 hours, Notify provider STAT. Mix9 mL of sodium chloride 0.9% with 0.4 mg (1 mL) of naloxone (NARCAN) in 10 mL syringe. (Note: dilution is 0.04 mg/mL) Give 0.08 mg (2 mL of special dilution), slow IV push, repeat up to 0.4 mg (10 mL) or until patient is responsive to physical stimulation and respiratory rate is equal to or greaterthan 6 breaths/min. Continue to observe, if no response within 3 minutes of administration of 0.4 mg (10 mL) total, repeat dose (0.4 mg as administered previously). Concentration 0.04 mg/mL, Postpartumnaproxen 500 mg oral tablet (20 sources)Nonsteroidal Anti-inflammatory DrugStart: 92-36-9629zetl 1 tablet by mouth twice daily as needed for painnaproxen (NAPROSYN) 500 mg tablet Take 1 Tab by mouth two times a day as needed (pain) 20 Tab 03/25/2024 ActiveStart: 07-26-2023 End: 22-46-9095sbjp 1 tablet by mouth twice dailynaproxen (Naprosyn) 500 mg tablet Indications: Acute exacerbation of chronic low back pain , Contusion of lower back, initial encounter Take 1 tablet (500 mg) by mouth 2 times daily (morning and lateafternoon) for 15 days. 30 tablet 12/21/2023 01/05/2024 Active Start: 98-29-6499ytqg 1 tablet by mouth twice daily as needed for painNaprosyn 500 mg Tab 500 mg = 1 tab(s), Oral, BID, PRN for pain, # 20 tab(s), Refills(s) 0, Pharmacy: [facility]/pharmacy #[id number], 160, cm, 04/02/23 21:48:00 EST, Height/Length Dosing, 110, kg, 04/02/23 21:48:00 EST, Weight Dosing Start Date: 04/02/23 Status: OrderedStart: 49-58-5221yayk 1 tablet by mouth twice daily as needed for pain naproxen 500 mg Tab 500 mg = 1 tab(s), Oral, BID, PRN for pain, # 20 tab(s), Refills(s) 0, Pharmacy: [facility]/pharmacy #[id number], 160, cm, 12/23/22 17:18:00 EDT, Height/Length Dosing, 113.8, kg, 12/23/22 17:18:00 EDT, Weight Dosing Start Date: 12/23/22 Status: OrderedStart: 07-18-2016 End: 82-35-2700artk 1 tablet by mouth twice daily at mealtimeNaproxen 500 mg tablet Discontinued 500 MG PO Twice daily October 26, 2022 12:00am November 11, 2022 3:38pm administer with food or milk End: 68-77-3705lgrb 1 tablet by mouth twice dailynaproxen (EC Naprosyn) 500 mg EC tablet Take 1 tablet (500 mg) by mouth 2 times daily (morning and late afternoon). Do not crush, chew, or split. 12/21/2023 Discontinuedomeprazole 40 mg delayed release oral capsule (20 sources)Proton Pump InhibitorStart: 83-39-7745urjo 1 capsule by mouth twice dailyomeprazole 40 mg Cap-DR 40 mg = 1 cap(s), Oral, BID, # 60 cap(s), Refills(s) 3, Pharmacy: [facility] #[id number], 160, cm, 11/03/24 15:45:00 EDT, Height/Length Dosing, 123.2, kg, 11/03/24 15:45:00 EDT, Weight Dosing Start Date: 11/03/24 Status: Ordered Medication Dispense Status: Completed Quantity: 60.0 Unit: cap(s) Total Allowed Fills: 4 Fills Dispensed: 0 Indications: Gastro- esophageal reflux disease without esophagitis;Start: 73-88-0925gqpt 1 capsule by mouth once dailyomeprazole 40 mg Cap-DR 40 mg = 1 cap(s), Oral, Daily, # 30 cap(s), Refills(s) 3, Pharmacy: [facility] #[id number], 160, cm, 07/21/24 9:58:00 EDT, Height/Length Dosing, 126.6, kg, 07/21/24 9:58:00 EDT, Weight Dosing Start Date: 08/06/24 Status: Ordered Quantity: 30.0 Unit: cap(s) Repeat number: 4Start: 05-02-2024 End: 24-54-3569wjrv 2 capsules by mouth once daily before mealtimeomeprazole (PriLOSEC) [address] capsule Indications: Chronic pain syndrome Take 2 capsules (40 mg) by mouth once daily in the morning. Take before meals. Do not crush or chew. 60 capsule 05/02/2024 ActiveStart: 02-03-2022 End: 85-94-1357dumf 1 capsule by mouth once dailyOmeprazole 40 mg Capsule,Delayed Release(Dr/Ec) Discontinued 40 MG PO Daily February 03, 2022 1:00am August 26, 2022 3:39pm End: 77-14-4500bptt 1 capsule by mouth twice daily at mealtimeomeprazole (PRILOSEC) 20 MG capsule Take 1 capsule by mouth 2 times daily (with meals) 11/20/2024 Discontinued (Therapy completed)ondansetron (ZOFRAN-ODT) disintegrating tablet 4 mg (1 source)Start: 10-08-2024 End: 75-84-1938tebfxtuohuw (ZOFRAN-ODT) disintegrating tablet 4 mgondansetron ODT (Zofran-ODT) disintegrating tablet 4 mg (1 source)Start: 15-25-9188mdcy 1 tablet by mouth every eight hours as needed ondansetron ODT (Zofran-ODT) disintegrating tablet 4 mgoxygen (O2) therapy (3 sources)Start: 47-23-7337tkfojsabkm, Continuous PRN - O2/gases, other, Starting on Sat02/06/24 at 1704, Recovery (only), Device: Nasal Cannula, Rate in liters per minute: 2 LPM, Keep O2 Sat Above: 92%Start: 93-82-2804iazqwfofwm, Continuous PRN - O2/gases, other, Starting on Sat09/23/23 at 0738, Recovery (only), Device: Nasal Cannula, Rate in liters per minute: 2 LPM, Keep O2 Sat Above: 92%Start: 50-93-0138zspgjvehwm, Continuous - Inhalation, First dose on Sat08/21/23 at 1015, Recovery (only), Device: Nasal Cannula, Rate in liters per minute: Other, Custom Value: 1-6 LPM, Keep O2 Sat Above: 92%pantoprazole 40 mg delayed release oral tablet (8 sources)Proton Pump InhibitorStart: 01-40-7842zhrj 40 mg by mouth once daily 40 mg, oral, Daily, First dose on Sat06/12/24 at 0900, Do not crush, chew, or split.Start: 53-13-3041eviv 40 mg by mouth once daily before rlmegepns23 mg, oral, Daily before breakfast, First dose on 05/16/24 at 0700, Do not crush, chew, or split.Start: 91-88-7520wivt 40 mg by mouth once daily before breakfast 40 mg, oral, Daily before breakfast, First dose on 05/02/24 at 0700, Do not crush, chew, or split.Start: 01-38-3411ljhl 40 mg by mouth once daily before wtapquivm70 mg, oral, Daily before breakfast, First dose on Sat01/27/24 at 0700, Do not crush, chew, or split.Start: 59-03-2787aswq 40 mg by mouth once daily before mg, oral, Daily before breakfast, First dose on Sat01/07/24 at 0700, Do not crush, chew, or split.Start: 35-55-8072cnuc 40 mg by mouth once daily before cjivfgyjt77 mg, oral, Daily before breakfast, First dose on Sat01/02/24 at 0700, Do not crush, chew, or split.Start: 36-65-4870lgvx 20 mg by mouth once daily before owxmazxdu14 mg, oral, Daily before breakfast, First dose on Sat11/15/23 at 0700, Do not crush, chew, or split.Start: 42-33-7734htww 40 mg by mouth once daily before iggqmwyyd58 mg, oral, Daily before breakfast, First dose (after last modification) on Sat10/31/23 at 2115, Donot crush, chew, or split.phentermine hydrochloride 37.5 mg oral tablet (20 sources)Sympathomimetic Amine AnorecticStart: 10-78-4699gefq 1 tablet by mouth once dailyphentermine (ADIPEX-P) 37.5 MG tablet Take 1 tablet by mouth daily. 07/15/2024 Activepolyethylene glycol 3350 70955 mg powder for oral solution (20 sources)Osmotic LaxativeStart: 56-48-3438ixgw 1 dose by mouth once daily polyethylene glycol (GLYCOLAX) 17 g packet Take 1 packet by mouth daily 05/17/2024 ActiveStart: 05-02-2024 End: 59-31-7101gnviggytdmbu glycol (Glycolax, Miralax) 17 gram packet Indications: Chronic pain syndrome Take 17 gby mouth 3 times a day as needed (constipation second line). 40 each 05/02/2024 05/17/2024 Discontinued (Stop Taking at Discharge)Start: 86-91-6958mgqz 17 g by mouth every twenty-four hours as iwdzox32 g, oral, Daily PRN, constipation, Starting on Sat01/27/24 at 1030 Start: 97-47-724476 g, oral, Daily, First dose on Sat01/02/24 at 0900, Bowel Regimen - for prevention of constipation.Start: g, oral, Daily, First dose on Sat11/13/23 at 1445, Bowel Regimen - for prevention of constipation.Start: 61-50-9802cmovefquf alcohol 0.014 ml/ml / povidone 6 mg/ml ophthalmic solution (1 source)Start: drop, Both Eyes, As needed, dry eyes, Starting on 01/27/24 at 0415predniSONE 20 mg oral tablet (20 sources)Start: 10-29-2024 End: 51-94-4948tpaf 2 tablets by mouth once dailypredniSONE (DELTASONE) 20 MG tablet Take 2 tablets by mouth daily for 5 days 10 tablet 10/29/2024 11/03/2024 ActiveStart: 10-18-2024 End: 45-14-7379jrsq 2 tablets by mouth once dailyPrednisone 10 mg tablet Discontinued 20 MG PO Daily October 18, 2024 12:00am November 01, 2024 1:28pm Start: 09-06-2024 End: 98-31-4787kfey 1 tablet by mouth once dailypredniSONE (DELTASONE) 50 MG tablet Take 1 tablet by mouth daily for 5 days 5 tablet 09/06/2024 09/11/2024 ActiveStart: 09-05-2024 End: 54-82-9888rgck 1 dose by mouth once60 mg, Oral, ONCE, 1 dose, On 09/05/24 at 2331Start: 08-16-2024 End: 67-15-5489Laoysvbmxb 10 mg tablet Discontinued 60 MG PO Daily 30 5 August 16, 2024 12:00am October 18, 2024 8:51pmStart: 03-28-2024 End: 06-23-0802sykv 2 tablets by mouth once dailypredniSONE (Deltasone) 20 mg tablet Indications: Chronic low back pain with left-sided sciatica, unspecified back pain laterality Take 2 tablets (40 mg) by mouth once daily for 5 days. 10 tablet 03/28/2024 04/02/2024 ActiveStart: 56-79-9445icud 3 tablets by mouth once dailypredniSONE 20 mg Tab 3, Oral, Daily, # 15 tab(s), Refills(s) 0, Pharmacy: [facility]/pharmacy #[id number], 160, cm, 02/14/24 12:22:00 EST, Height/Length Dosing, 114.8, kg, 02/14/24 12:22:00 EST, Weight Dosing Start Date: 02/14/24 Status: Ordered Quantity: 15.0 Unit: tab(s) Repeat number: 1Start: 59-87-1802vluw 1 tablet by mouth once dailypredniSONE 10 mg Tab 10 mg = 1 tab(s), Oral, As Directed, Take 3 tabs by mouth daily x3 days, then 2 tabs daily x3 days, then 1 tab daily x3 days., # 18 tab(s), Refills(s) 0, Pharmacy: [facility]/pharmacy #[id number], 160, cm, 04/28/24 12:58:00 EST, Height/Length Dosing, 122.1, kg, 04/28/24 12:58:00 EST, WeightDosing Start Date: 04/28/24 Status: Ordered Quantity: 18.0 Unit: tab(s) Repeat number: 1Start: 01-23-2024 End: 60-79-2596cedo 1 tablet by mouth once dailypredniSONE 50 mg Tab 50 mg = 1 tab(s), Oral, Daily, X 5 day(s), # 5 tab(s), Refills(s) 0, Pharmacy:[facility]/pharmacy #[id number], 160, cm, 01/23/24 14:03:00 EDT, Height/Length Dosing, 114.8, kg, 01/23/24 14:03:00 EDT, Weight Dosing Start Date: 01/23/24 Stop Date: 01/28/24 Status: OrderedStart: 01-01-2024 End: 99-97-7177xeix 20 mg by mouth once20 mg, oral, Once, On Sat01/01/24 at 1245, For 1 doseStart: 51-85-2401yrtquhRYKZ 10 mg Tab = 1 -, Oral, As Directed, Take 3 tabs by mouth daily x3 days, then 2 tabs daily x3 days, then 1 tab daily x3 days., # 18 tab(s), Refills(s) 0, Pharmacy: [facility] #[facility], 160, cm, 12/13/23 13:44:00 EDT, Height/Length Dosing, 115.2, kg, 12/13/23 13:44:00 EDT, Weight Dosing Start Date: 12/13/23 Status: OrderedStart: 06-27-2023 predniSONE 10 mg Tab = 1 -, Oral, As Directed, Take 3 tabs by mouth daily x3 days, then 2 tabs daily x3 days, then 1 tab daily x3 days., # 18 tab(s), Refills(s) 0, Pharmacy: [facility]/pharmacy #[id number], 160, cm, 06/27/23 11:54:00 EDT, Height/Length Dosing, 117.2, kg, 06/27/23 11:54:00 EDT, Weight Dosing Start Date: 06/27/23 Status: OrderedStart: 06-11-2023 End: 99-36-1813hgar 1 tablet by mouth once dailypredniSONE 50 mg Tab 50 mg = 1 tab(s), Oral, Daily, X 5 day(s), # 5 tab(s), Refills(s) 0, Pharmacy:[facility]/pharmacy #[id number], 160, cm, 06/11/23 19:00:00 EDT, Height/Length Dosing, 118.8, kg, 06/11/23 19:00:00 EDT, Weight Dosing Start Date: 06/11/23 Stop Date: 06/16/23 Status: OrderedStart: 02-07-2023 End: [id number] 1 tablet by mouth once dailypredniSONE 50 mg Tab 50 mg = 1 tab(s), Oral, Daily, X 5 day(s), # 5 tab(s), Refills(s) 0 Start Date: 02/07/23 Stop Date: 02/12/23 Status: OrderedStart: 08-31-2022 End: 05-54-8616Nmvlpebsfh 10 mg tablet Discontinued 0 MG .ROUTE .COMPLEX 39 August 31, 2022 12:00am September 01:59pm 6 tabs for 3 days 4 tabs for 3 days 2 tabs for 3 days 1 tabs for 3 daysStart: 08-31-2022 End: 89-25-1262Kdsmdkqhxn Discontinued 0 MG .ROUTE .COMPLEX 39 August 30, 2022 11:00pm September 01, 2022 1:59pm 6 tabs for 3 days 4 tabs for 3 days 2 tabs for 3 days 1 tabs for 3 daysStart: 40-53-0451qbyzsnXTOB 10 MG Take 3 tablets by mouth for 3 days then 2 tablets by mouth for 3 days then 1 tablet by mouth for 3 days Orally Once a day for July, ActiveStart: 06-16-2022 End: 67-16-7653npgq 1 tablet by mouth once dailyPrednisone 50 mg tablet Discontinued 50 MG PO Daily 4 June 16, 2022 12:00am August 06, 2022 6:45pm Start: 06-02-2021 End: 71-30-9942iudd 1 tablet by mouth once daily at mealtimePrednisone 50 mg tablet Discontinued 50 MG PO Daily 4 July 24, 2021 4:40pm January 21, 2022 8:16pm administer with food or milkStart: 01-08-2021 End: 79-56-2335ysbn 3 tablets by mouth once daily at mealtimePrednisone 20 mg tablet Discontinued 60 MG PO Daily January 08, 2021 12:00am April 27, 2021 12:57pm administer with food or milkStart: 01-08-2021 End: 19-73-3988dqxi 60 mg by mouth once daily at mealtimePrednisone Discontinued 60 MG PO Daily January 07, 2021 11:00pm April 27, 2021 11:57am admi nister with food or milkStart: 02-09-2020 End: 43-69-7138xvlv 3 tablets by mouth once dailyPrednisone 20 mg tablet Discontinued 60 MG PO Daily 15 February 09, 2020 1:00am June 30, 2020 3:39pmStart: 02-09-2020 End: 67-33-6614fxlg 60 mg by mouth once dailyPrednisone Discontinued 60 MG PO Daily 06 08February 09, 2020 12:00am June 30, 2020 2:39pmStart: 05-10-2018 End: 56-09-5309wqbr 3 tablets by mouth once dailyPrednisone 20 mg tablet Discontinued 60 MG PO Daily 15 May 10, 2018 1:00am May 14, 2018 1:00am May 15, 2018 1:01amStart: 05-10-2018 End: 59-27-8486akdr 60 mg by mouth once dailyPrednisone Discontinued 60 MG PO Daily 15 May 10, 2018 12:00am May 15, 2018 12:01ampregabalin 50 mg oral capsule (8 sources)Start: 07-15-2023 End: 66-34-0688uzbw 1 capsule by mouth twice dailypregabalin 50 mg Cap 50 mg = 1 cap(s), Oral, BID, X 30 day(s), # 60 cap(s), Refills(s) 1, Pharmacy: [facility]/pharmacy #[id number], 160, cm, 07/15/23 13:55:00 EDT, Height/Length Dosing, 116.5, kg, 07/15/23 13:55:00 EDT, Weight Dosing Start Date: 07/15/23 Stop Date: 09/13/23 Status: OrderedProchlorperazine (1 source)PhenothiazineStart: 40-83-5693jkuj 1 tablet by mouth every six hours as neededprochlorperazine (Compazine) tablet 10 mgpromethazine hydrochloride 25 mg rectal suppository (8 sources)PhenothiazineStart: 54-03-5300gwfa 25 mg rectal route every six hours as needed for nauseaPhenergan 25 mg Supp 25 mg = 1 supp, Rectal, q6hr, PRN Nausea/Vomiting, # 6 EA, Refills(s) 0, Pharmacy: [facility]/pharmacy #[id number], 160, cm, 04/30/23 17:09:00 EST, Height/Length Dosing, 114, kg, 04/30/23 17:09:00 EST, Weight Dosing Start Date: 04/30/23 Status: OrderedRobaxin-750 (1 source)Robaxin-750 Activesimethicone 80 mg chewable tablet (20 sources)Start: 95-26-5664bsga 80 mg by mouth four times daily as mg, oral, 4 times daily PRN, flatulence, Starting on Sat01/27/24 at 0415Start: 03-14-2022 End: 11-21-1524rkib 1 capsule by mouth once daily as neededSimethicone 250 mg capsule Discontinued 250 MG PO Daily as needed for abdominal distention 7 March 14, 2022 1:00am September 05, 2022 3:33pm5 ml sodium chloride 9 mg/ml injection (11 sources)Start: -40 mL, IntraVENous, EVERY 12 HOURS SCHEDULED (2 times per day), First dose on Sat11/27/24 at 2100,Until Discontinued, For Line Patency: Peripheral IV = 5 mL; Midline or Central Line = 10 mL/lumen. If following IV push medication, administer flush at same rate as the IV push. Flush volume is determined by type of infusion therapy being given. For non- viscous solutions use: Peripheral IV = 5 mL Midline or Central Line = 10 mL/lumen For viscous solutions (i.e. blood components, parenteral nutrition, contrast media, or after obtaining blood sample) use: Peripheral IV = 10 mL Midline or Central Line = 20 mL/lumen, PACU onlyStart: 69-48-9806gtjp 1 mL intravenously every hour as neededIntraVENous, at 100 mL/hr, PRN, If patient receiving piggyback infusions without ordered maintenance IV fluids or with frequent/long duration piggyback infusions, Starting on Sat11/27/24 at 1234, Administer at the same rate as the piggyback being infused., PACU onlyStart: -40 mL, IntraVENous, PRN, Starting on Sat11/27/24 at 1234, Until Discontinued, Line Care, After every IV line use, For Line Patency: Peripheral IV = 5 mL; Midline or Central Line = 10 mL/lumen. If following IV push medication, administer flush at same rate as the IV push. Flush volume is determinedby type of infusion therapy being given. For non-viscous solutions use: Peripheral IV = 5 mL Midline or Central Line = 10 mL/lumen For viscous solutions (i.e. blood components, parenteral nutrition, contrast media, or after obtaining blood sample) use: Peripheral IV = 10 mL Midline or Central Line = 20 mL/lumen, PACU onlyStart: 11-27-2024 End: 04-26-8161BhkhiGUGezv, at 5-250 mL/hr, PRN, if patient receiving piggyback infusions and maintenance fluids are not ordered, Starting on Sat11/27/24 at 0806, For piggyback infusion, administer at same rate as piggyback for a total of 25 mL. Enter 25 mL into dose field and piggyback rate into rate field of orde r. If piggyback is infusing at a rate less than 100 mL/hr, enter 25 mL into dose field and 100 mL/hr into rate field of order., Pre-op (day of surgery)Start: 47-36-405622 mL, Other, ONCE PRN, 1 dose, Starting on Shira 10/08/24 at 1200, Until Discontinued, procedure, to be PFStart: spray, Each Nostril, As needed, congestion, Starting on 01/27/24 at 0415Start: 12-04-2023 End: 22-82-4652QY Push, TO CT SCAN-ONCE, 1 dose, On Sat12/04/23 at 2250Start: 11-13-2023 End: 70-13-3998ydut 75 mL intravenously every hour75 mL/hr, intravenous, Continuous, Starting on Sat11/13/23 at 1445Start: 11-13-2023 End: 25-31-4014zpyu 125 mL intravenously every fofk416 mL/hr, intravenous, Continuous, Starting on Sat11/13/23 at 1230Start: 03-08-5418ujlmox chloride flush 0.9 % injection 10 mLStart: 10-30-2023 End: 08-83-5961dicvuc chloride 0.9 % bolus 1,000 mLspironolactone 25 mg oral tablet (9 sources)Aldosterone AntagonistStart: 15-96-1855jvls 1 tablet by mouth twice dailyspironolactone 25 mg Tab 25 mg = 1 tab(s), Oral, BID, # 60 tab(s), Refills(s) 1, Pharmacy: [facility] #[id number], 160, cm, 07/21/24 9:58:00 EDT, Height/Length Dosing, 126.6, kg, 07/21/24 9:58:00EDT, Weight Dosing Start Date: 08/06/24 Status: Ordered Quantity: 60.0 Unit: tab(s) Repeat number: 2 Indications: Edema, unspecified;sulfamethoxazole 800 mg / trimethoprim 160 mg oral tablet (20 sources)Dihydrofolate Reductase Inhibitor Antibacterial, Sulfonamide AntimicrobialStart: 11-01-2023 End: 75-15-2393peyw 2 tablets by mouth every twelve hourssulfamethoxazole- trimethoprim (Bactrim DS) 800-160 mg tablet Indications: Cellulitis, Skin and SoftTissue Take 2 tablets by mouth every 12 hours for 28 doses. 56 tablet 11/01/2023 11/15/2023 ActiveStart: 09-25-2023 End: 06-20-6077Zibqyah D.S. 800 mg-160 mg Tab 1 tab(s), Oral, BID for 7 day(s), 14 tab(s), Refill(s) 0, [facility]/pharmacy #[id number], 160, cm, 09/25/23 11:43:00 EDT, Height/Length Dosing, 115.3, kg, 09/25/23 11:43:00 EDT, Weight Dosing Start Date: 09/25/23 Stop Date: 10/02/23 Status: OrderedStart: 04-01-2018 End: 03-97-1299lfbh 1 tablet by mouth twice dailySulfamethoxazole-Trimethoprim (Bactrim Ds) 800-160 mg tablet Discontinued 1 TAB PO Twice daily April 01, 2018 1:00am April 11, 2018 8:03pmSUMAtriptan 50 mg oral tablet (20 sources)Serotonin-1b and Serotonin-1d Receptor AgonistStart: 06-14-2024 SUMAtriptan (IMITREX) 50 MG tablet Take 1 tablet by mouth 06/14/2024 Active Start: 83-67-765147 mg, oral, Every 2 hour PRN, migraine, Starting on Sat06/12/24 at 1749, May repeat dose once in 2hours if no relief. Do not exceed 200 mg in 24 hours.tiZANidine 4 mg oral tablet (20 sources)Central alpha-2 Adrenergic AgonistStart: 10-05-2024 End: 13-18-1134qufd 1 tablet by mouth every six hours as needed for pain tiZANidine (ZANAFLEX) 4 MG tablet Take 1 tablet by mouth every 6 hours as needed (back pain) 30 tablet 10/05/2024 10/14/2024 Discontinued (LIST CLEANUP)Start: 10-05-2024 End: 21-41-2549tmna 1 dose by mouth once4 mg, Oral, ONCE, 1 dose, On Sat10/05/24 at 1309Start: 02-04-2024 End: 47-65-8458pbsj 1 tablet by mouth every eight hourstiZANidine 2 mg Tab 2 mg = 1 tab(s), Oral, q8hr, X 7 day(s), # 21 tab(s), Refills(s) 0, [facility]: [id number], 160, cm, 02/04/24 17:06:00 EST, Height/Length Dosing, 114.8, kg, 02/04/24 17:06:00 EST, Weight Dosing Start Date: 02/04/24 Stop Date: 02/11/24 Status: OrderedStart: 01-01-2024 End: 07-54-2721rexk 4 mg by mouth once4 mg, oral, Once, On 01/01/24 at 1245, For 1 doseStart: 12-26-2023 End: 27-86-2872gexh 1 tablet by mouth every eight hourstiZANidine 2 mg Tab 2 mg = 1 tab(s), Oral, q8hr, X 7 day(s), # 21 tab(s), Refills(s) 0, [facility]: [id number], 160, cm, 12/26/23 18:17:00 EDT, Height/Length Dosing, 114.8, kg, 12/25/2417:17:00 EDT, Weight Dosing Start Date: 12/26/23 Stop Date: 01/02/24 Status: OrderedStart: 12-07-2023 End: 80-17-9126jjio 1 tablet by mouth every six hours for muscle spasms tiZANidine (Zanaflex) 4 mg tablet Indications: Postoperative pain after spinal surgery Take 1 tablet (4 mg) by mouth every 6 hours if needed for muscle spasms for up to 10 days. 30 tablet 12/07/2023 12/21/2023 DiscontinuedStart: 12-07-2023 take 4 mg by mouth once4 mg, oral, Once, On 12/07/23 at 0205, For 1 dose Start: 11-27-2023 End: 25-58-9229ciev 1 tablet by mouth every eight hourstiZANidine 2 mg Tab 2 mg = 1 tab(s), Oral, q8hr, X 7 day(s), # 21 tab(s), Refills(s) 0, Pharmacy: [id number], 160, cm, 11/27/23 17:53:00 EDT, Height/Length Dosing, 115.5, kg, 11/27/23 17:53:00 EDT, Weight Dosing Start Date: 11/27/23 Stop Date: 12/04/23 Status: OrderedStart: 28-64-3916qkuw 1 tablet by mouth every six hours as needed for paintiZANidine 4 mg Tab 4 mg = 1 tab(s), Oral, q6hr, PRN Muscle pain, # 40 tab(s), Refills(s) 0, Pharmacy: [facility]/pharmacy #[id number], 160, cm, 06/27/23 11:54:00 EDT, Height/Length Dosing, 117.2, kg, 06/27/23 11:54:00 EDT, Weight Dosing Start Date: 06/27/23 Status: OrderedStart: 05-26-2023 End: 08-65-9003knyd 1 tablet by mouth every eight hoursZanaflex 4 mg Tab 4 mg = 1 tab(s), Oral, q8hr, X 5 day(s), # 15 tab(s), Refills(s) 0, Pharmacy: [facility] pharmacy #[id number], 160, cm, 05/26/23 19:39:00 EST, Height/Length Dosing, 120, kg, 05/26/23 19:39:00 EST, Weight Dosing Start Date: 05/26/23 Stop Date: 05/31/23 Status: Ordered End: 08-71-9513fduq 1 capsule by mouth three times dailytiZANidine (Zanaflex) 2 mg capsule Take 1 capsule (2 mg) by mouth 3 times a day. 02/06/2024 Discontinued (Stop Taking at Discharge)topiramate 25 mg oral tablet (20 sources)Start: 06-14-2024 End: 19-12-4807mypo 1 tablet by mouth twice dailytopiramate (TOPAMAX) 25 MG tablet Take 1 tablet by mouth 2 times daily 06/14/2024 ActiveStart: 06-13-2024 take 25 mg by mouth twice daily25 mg, oral, 2 times daily, First dose on 06/13/24 at 0945Start: 01-27-2024 End: 21-13-9468jfhj 1 tablet by mouth once daily at bedtime, then take 1 tablet by mouth twice dailytopiramate (Topamax) 25 mg tablet Indications: Chronic pain syndrome Take 1 tablet (25 mg) by mouthonce daily at bedtime for 2 days, THEN 1 tablet (25 mg) 2 times a day for 7 days. 16 tablet 01/28/2024 11:14 AM EST 01/28/2024 03/02/2024 Discontinued (Therapy completed)Start: 01-21-2022 End: 64-11-3534iptw 1 tablet by mouth twice dailyTopiramate (Topamax) 100 mg tablet Discontinued 100 MG PO Twice daily January 21, 2022 12:00am June 01, 2023 2:55pmStart: 44-01-3326nyyr 100 mg by mouth once dailyTopiramate Active 100 MG PO Daily January 21, 2022 12:00amZofran ODT 4 mg Tab-Dis (20 sources)Start: 67-35-4551grvy 1 tablet by mouth every eight hours as needed for nauseaZofran ODT 4 mg Tab-Dis 4 mg = 1 tab(s), Oral, q8hr, PRN Nausea/Vomiting, # 12 tab(s), Refills(s) 0, Pharmacy: [facility]/pharmacy #[id number], 160, cm, 06/22/23 14:24:00 EDT, Height/Length Dosing, 118.5, kg, 06/22/23 14:24:00 EDT, Weight Dosing Start Date: 06/22/23 Status: OrderedStart: 44-11-8111pcap 1 tablet by mouth three times dailyZofran ODT 4 mg Tab-Dis 4 mg = 1 tab(s), Oral, TID, # 15 tab(s), Refills(s) 0, Pharmacy: [facility]/pharmacy #[id number], 160, cm, 05/14/23 10:27:00 EST, Height/Length Dosing, 115, kg, 05/14/23 10:27:00 EST, Weight Dosing Start Date: 05/14/23 Status: OrderedStart: 83-65-0390ukov 1 tablet by mouth every eight hoursZofran ODT 4 mg Tab-Dis 4 mg = 1 tab(s), Oral, q8hr, # 12 tab(s), Refills(s) 0, Pharmacy: [facility]/pharmacy #[id number], 160, cm, 04/30/23 17:09:00 EST, Height/Length Dosing, 114, kg, 04/30/23 17:09:00 EST, Weight Dosing Start Date: 04/30/23 Status: OrderedStart: 39-93-5330isxt 1 tablet by mouth every eight hours as needed for nauseaZofran ODT 4 mg Tab-Dis 4 mg = 1 tab(s), Oral, q8hr, PRN Nausea/Vomiting, # 12 tab(s), Refills(s) 0, Pharmacy: [facility]/pharmacy #[id number], 160, cm, 01/02/23 16:09:00 EDT, Height/Length Dosing, 114.2, kg, 01/02/23 16:09:00 EDT, Weight Dosing Start Date: 01/02/23 Status: Orderedzolpidem tartrate 10 mg oral tablet (20 sources)gamma-Aminobutyric Acid-ergic AgonistStart: 32-74-6837vwwc 1 tablet by mouth once daily at bedtime as needed for sleepAmbien 10 mg Tab 10 mg = 1 tab(s), Oral, Once a day (at bedtime), PRN for sleep, # 30 tab(s), Refills(s) 5, Pharmacy: [facility] #37, 160, cm, 02/02/25 15:15:00 EST, Height/Length Dosing,121.6, kg, 02/02/25 15:15:00 EST, Weight Dosing Start Date: 02/02/25 Status: Ordered Medication Dispense Status: Completed Quantity: 30.0 Unit: tab(s) Total Allowed Fills: 6 Fills Dispensed: 0 Indications: Insomnia, unspecified;Start: 41-24-8799ftxo 1 tablet by mouth once daily at bedtime as needed for sleepAmbien 10 mg Tab 10 mg = 1 tab(s), Oral, Once a day (at bedtime), PRN for sleep, # 30 tab(s), Refills(s) 5, Pharmacy: [facility] #37, 160, cm, 11/03/24 15:45:00 EDT, Height/Length Dosing,123.2, kg, 11/03/24 15:45:00 EDT, Weight Dosing Start Date: 11/03/24 Status: Ordered Quantity: 30.0 Unit: tab(s) Repeat number: 6 Indications: Insomnia, unspecified; Start: 69-05-4021cvve 1 tablet by mouth once daily at bedtime as needed for sleepAmbien 5 mg Tab 5 mg = 1 tab(s), Oral, Once a day (at bedtime), PRN for sleep, # 7 tab(s), Refills(s) 0, Pharmacy: [facility] #37, 160, cm, 07/21/24 9:58:00 EDT, Height/Length Dosing, 126.6, kg, 07/21/24 9:58:00 EDT, Weight Dosing Start Date: 08/06/24 Status: Ordered Quantity: 7.0 Unit: tab(s) Repeat number: 1 Indications: Insomnia, unspecified;Start: 67-21-3128blxn 5 mg by mouth once daily as needed for sleep5 mg, oral, Nightly PRN, sleep, Starting on 06/13/24 at 1529Start: 01-28-2024 End: 98-54-4603jaotydck (Ambien) 5 mg tablet Indications: Left leg weakness Take 1 tablet (5 mg) by mouth as needed at bedtime for sleep. 7 tablet 01/28/2024 02/06/2024 Discontinued (Stop Taking at Discharge)Start: 01-07-2024 End: 95-43-2721ggic 5 mg by mouth once daily as needed for sleep5 mg, oral, Nightly PRN, sleep, Starting on 01/27/24 at 0421Start: 58-44-1166uusx 5 mg by mouth once daily as needed for sleep5 mg, oral, Nightly PRN, sleep, Starting on Shira 01/02/24 at 1758 Completed/Discontinued Medications MedicationDrug Class(es)DatesSig (Normalized)Sig (Original)acetaminophen 325 mg / HYDROcodone bitartrate 5 mg oral tablet (1 source)Opioid AgonistStart: 12-09-2023 End: 59-61-8570zwwl 1 tablet by mouth once as needed for pain1 tablet, oral, Once, On 12/09/23 at 1425, For 1 dose, If ordered PRN for pain, nurse is permitted to administer this medication for higher pain scores based on patient preference? Yesacetaminophen 325 mg / oxyCODONE hydrochloride 5 mg oral tablet (20 sources)Opioid AgonistStart: 10-24-2024 End: 75-32-2595jslq 1 tablet by mouth every twenty-four hours2 tablet, Oral, ONCE, 1 dose, On 10/24/24 at 2300, Maximum dose of acetaminophen is 4000 mg from all sources in 24 hours.Start: 09-30-2024 End: 70-11-5700wdlt 1 tablet by mouth every twenty-four hours1 tablet, Oral, ONCE, 1 dose, On Sat09/30/24 at 1422, Maximum dose of acetaminophen is 4000 mg from all sources in 24 hours.Start: 09-05-2024 End: 69-53-8321rbty 1 tablet by mouth every twenty-four hours1 tablet, Oral, ONCE, 1 dose, On Sat09/05/24 at 2331, Maximum dose of acetaminophen is 4000 mg fromall sources in 24 hours.Start: 09-01-2024 End: 89-91-2359zzoa 1 tablet by mouth every twenty-four hours1 tablet, Oral, ONCE, 1 dose, On Sat09/01/24 at 1507, Maximum dose of acetaminophen is 4000 mg fromall sources in 24 hours.Start: 08-21-2024 End: 95-74-4668xdhy 1 tablet by mouth every twenty-four hours1 tablet, Oral, ONCE, 1 dose, On Sat08/21/24 at 1857, Maximum dose of acetaminophen is 4000 mg fromall sources in 24 hours.Start: 03-03-2024 End: 85-71-7149oigo 1 tablet by mouth every eight hours for painoxyCODONE- acetaminophen (Percocet) 5-325 mg tablet Indications: Rib pain on left side Take 1 tabletby mouth every 8 hours if needed for severe pain (7 - 10) for up to 15 days. 45 tablet 03/03/2024 03/18/2024 ActiveStart: 12-30-2023 End: 76-68-8855ntny 1 tablet by mouth once as needed for pain1 tablet, oral, Once, On 12/30/23 at 1925, For 1 dose, If ordered PRN for pain, nurse is permitted to administer this medication for higher pain scores based on patient preference? YesStart: 12-21-2023 End: 02-39-9124zdkw 1 tablet by mouth once as needed for pain1 tablet, oral, Once, On 12/21/23 at 2145, For 1 dose, If ordered PRN for pain, nurse is permitted to administer this medication for higher pain scores based on patient preference? YesStart: 12-18-2023 End: 94-06-0662tlqr 1 tablet by mouth once as needed for pain1 tablet, oral, Once, On Sat12/18/23 at 1900, For 1 dose, If ordered PRN for pain, nurse is permitted to administer this medication for higher pain scores based on patient preference? YesStart: 12-13-2023 End: 82-01-3704yzog 1 tablet by mouth once as needed for pain1 tablet, oral, Once, On Sat12/13/23 at 2120, For 1 dose, If ordered PRN for pain, nurse is permitted to administer this medication for higher pain scores based on patient preference? YesStart: 12-10-2023 End: 02-25-8782xney 1 tablet by mouth once as needed for pain1 tablet, oral, Once, On Sat12/10/23 at 0310, For 1 dose, If ordered PRN for pain, nurse is permitted to administer this medication for higher pain scores based on patient preference? YesStart: 09-16-2023 End: 96-00-4711jbpr 1 tablet by mouth once as needed for pain1 tablet, oral, Once, On Sat09/16/23 at 1745, For 1 dose, If ordered PRN for pain, nurse is permitted to administer this medication for higher pain scores based on patient preference? YesStart: 09-10-2023 End: 43-79-7023icxLXXTWY-acetaminophen (PERCOCET) 5-325 MG per tablet 1 tablet Start: 08-05-2023 End: 46-76-2387cznuhqgffkbgx-oxycodone 325 mg-5 mg Tab 1 tab(s), Oral, q4hr for pain for 3 day(s), 12 tab(s), Refill(s) 0, [id number], 160, cm, 08/05/23 20:18:00 EDT, Height/Length Dosing, 114.7, kg, 08/05/23 20:18:00 EDT, Weight Dosing Start Date: 08/05/23 Stop Date: 08/08/23 Status: OrderedStart: 04-13-2023 take 1 tablet by mouth three times daily as needed for painoxyCODONE- acetaminophen (Percocet) 5-325 mg tablet Indications: Herniation of intervertebral disc between L4 and L5 , Lumbar radiculopathy Take 1 tablet by mouth 3 times a day as needed for severe pain (7 - 10). 90 tablet 04/13/2023 ActiveStart: 48-80-5254yjol 1 tablet by mouth three times daily as needed for painoxyCODONE-acetaminophen (Percocet) 5-325 mg tablet Indications: Herniation of intervertebral disc between L4 and L5 , Lumbar radiculopathy Take 1 tablet by mouth 3 times a day as needed for severe pain (7 - 10). 90 tablet 0 03/11/2023 ActiveStart: 31-88-6430wcji 1 tablet by mouth three times daily as needed for painoxyCODONE-acetaminophen (Percocet) 5-325 mg tablet Indications: Herniation of intervertebral disc between L4 and L5 , Lumbar radiculopathy Take 1 tablet by mouth 3 times a day as needed for severe pain (7 - 10). 90 tablet 0 02/11/2023 ActiveStart: 12-21-2022 End: 40-02-2216itep 1 tablet by mouth every eight hours as needed for pain Oxycodone-Acetaminophen (Percocet) 5-325 mg tablet Discontinued 1 TAB PO Q8H as needed for pain 9 3S2022December 24, 2022 1:07pmStart: 10-07-2022 End: 96-42-8203heia 1 tablet by mouth every four to six hours as needed for pain Oxycodone-Acetaminophen (Percocet) 5-325 mg tablet Discontinued 1 TAB PO EVERY 4-6 HOURS as needed for pain 4 October 07, 2022 October 11, 2022 5:28pmStart: 09-28-2022 End: 49-35-8774dhvb 1 tablet by mouth every eight hours as needed for pain Oxycodone-Acetaminophen (Percocet) 5-325 mg tablet Discontinued 1 TAB PO Q8H as needed for pain 7 [id number] 02, 2022 7:03pmStart: 09-05-2022 End: 58-68-1458dgds 1 tablet by mouth every eight hours as needed for pain Oxycodone-Acetaminophen (Percocet) 5-325 mg tablet Discontinued 1 TAB PO Q8H as needed for pain 10 3 September 05, 2022 September 11, 2022 12:38pmStart: 08-17-2022 End: 56-60-9742ziaw 1 tablet by mouth every four to six hours as needed for pain Oxycodone-Acetaminophen (Percocet) 5-325 mg tablet Discontinued 1 TAB PO EVERY 4-6 HOURS as needed for pain 12 5 August 17, 2022 August 26, 2022 3:39pmStart: 08-13-2022 End: 51-22-7994fdkt 1 tablet by mouth every eight hours as needed for pain Oxycodone-Acetaminophen (Percocet) 5-325 mg tablet Discontinued 1 TAB PO Q8H as needed for pain 10 3 August 13, 2022 August 26, 2022 3:39pmStart: 03-14-2022 End: 58-85-5467wsqi 1 tablet by mouth once daily as needed for painOxycodone- Acetaminophen (Percocet) 5-325 mg tablet Discontinued 1 TAB PO Daily as needed for pain 55 March 14, 2022 March 29, 2022 2:25pmStart: 04-27-2021 End: 45-82-1489ispe 1 tablet by mouth every six hours as needed for pain Oxycodone-Acetaminophen 5-325 mg tablet Discontinued 1 TAB PO Q6H as needed for pain 12 3 February 08, 2023 June 01, 2023 2:55pmStart: 11-27-2020 End: 48-53-7902lzcd 1 tablet by mouth three times daily as needed for pain Oxycodone-Acetaminophen (Percocet) 5-325 mg tablet Discontinued 1 TAB PO Three times daily as needed for pain 6 2 January 12, 2023 January 27, 2023 11:40am Start: 05-10-2020 End: 75-85-0665ifvx 1 tablet by mouth every four to six hours as needed for pain Oxycodone-Acetaminophen (Percocet) 5-325 mg tablet Discontinued 1 TAB PO EVERY 4-6 HOURS as needed for pain 7 2 May 10, 2020 June 30, 2020 3:39pm Start: 06-20-2017 End: 42-50-5626ljtj 1 tablet by mouth every four to six hours as needed for pain Oxycodone-Acetaminophen (Percocet) 5-325 mg tablet Discontinued 1 TAB PO EVERY 4-6 HOURS as needed for pain August 29, 2017 April 01, 2018 8:03pm azithromycin 250 mg oral tablet (20 sources)Macrolide AntimicrobialStart: 00-65-3171trgs 1 tablet by mouth once dailyazithromycin 250 mg Tab 250 mg, Oral, As Directed, Take two tabs by mouth on day one, then one tab daily, # 6 tab(s), Refills(s) 0, Pharmacy: [facility]/pharmacy #[id number], 160, cm, 02/14/24 12:22:00 EST, Height/Length Dosing, 114.8, kg, 02/14/24 12:22:00 EST, Weight Dosing Start Date: 02/14/24 Status: Ordered Quantity: 6.0 Unit: tab(s) Repeat number: 1Start: 02-09-2020 End: 66-03-4042ovmc 2-5 tablets by mouth once dailyAzithromycin (Zithromax Z- Aydee) 250 mg tablet Discontinued 0 PO .COMPLEX February 09, 2020 1:00am June 30, 2020 3:39pm take 500 mg today (day 1), then 250 mg for 4 days (days 2-5) benzonatate 200 mg oral capsule (20 sources)Non-narcotic AntitussiveStart: 07-24-2021 End: 17-77-7056cgkz 1 capsule by mouth three times daily as needed for cough Benzonatate 200 mg capsule Discontinued 200 MG PO Three times daily as needed for cough October 18, 2021 12:00am January 21, 2022 8:15pmbisacodyl 10 mg rectal suppository (4 sources)Stimulant LaxativeStart: 05-02-2024 End: 04-30-8162jxfutyrdr (Dulcolax) 10 mg suppository Indications: Chronic pain syndrome Insert 1 suppository (10 mg) into the rectum once daily as needed for constipation. 12 suppository 05/02/2024 05/16/2024 Discontinued (Med List Cleanup)carvedilol 6.25 mg oral tablet (10 sources)alpha-Adrenergic Ric, beta-Adrenergic BlockerStart: 03-02-2024 End: 61-00-1700cpyf 0.5 tablet by mouth twice dailycarvedilol (Coreg) 6.25 mg tablet Indications: Primary hypertension Take 0.5 tablets (3.125 mg) by mouth 2 times a day. 90 tablet 1 03/02/2024 05/02/2024 Discontinued (Stop Taking at Discharge)cefTRIAXone 2000 mg injection (1 source)Cephalosporin AntibacterialStart: 11-13-2023 End: g, intravenous, at 100 mL/hr, Administer over 30 Minutes, Every 24 hours, First dose on Sat11/13/23 at 1915, premix bag, Suspected Indication (Select all that apply): Cellulitis, Skin and Soft Tissue, Indications: Cellulitis, Skin and Soft Tissuecetirizine hydrochloride 10 mg oral tablet (20 sources)Histamine-1 Receptor AntagonistStart: 10-11-2022 End: 92-58-4568kmtb 1 tablet by mouth once dailyCetirizine 10 mg tablet Discontinued 10 MG PO Daily October 11, 2022 12:00am November 29, 2022 3:26pm chlorhexidine gluconate 40 mg/ml medicated liquid soap (20 sources)Start: 01-29-2024 End: 11-03-0757bmhtpgohpcfxq (Hibiclens) 4 % external liquid Indications: Lumbar disc herniation with radiculopathy , Preoperative examination Apply 1 Application topically once daily for 5 days. Use per CPM/PAT provided instructions 01/29/2024 02/06/2024 Discontinued (Stop Taking at Discharge)Start: 01-29-2024 End: 54-84-3321mpvw 15 mL by mouth once dailychlorhexidine (Peridex) 0.12 % solution Indications: surgery Use 15 mL in the mouth or throat once daily for 2 doses. 30 mL 01/29/2024 02/06/2024 Discontinued (Stop Taking at Discharge)Start: 01-22-2024 End: 67-45-2027vgwb 15 mL by mouth once dailychlorhexidine (Peridex) 0.12 % solution Indications: surgery Use 15 mL in the mouth or throat once daily for 2 doses. 30 mL 01/22/2024 01/24/2024 ActiveStart: 01-22-2024 End: 75-46-2390qnedpjweefiqk (Hibiclens) 4 % external liquid Indications: Preoperative examination Apply 1 Application topically once daily for 5 days. Use per CPM/PAT provided instructions 01/22/2024 01/27/2024 ExpiredStart: 11-06-2023 End: 34-01-9390ewemqvwytzhuw (Peridex) 0.12 % solution Indications: Preop testing 15 ml swish and spit for 30 seconds night prior to surgery and morning of surgery 473 mL 11/06/2023 11/19/2023 Discontinued (Stop Taking at Discharge) Start: 08-02-2023 End: 80-88-0115ylezbugtsxzrx (Peridex) 0.12 % solution Indications: Preoperative examination Swish and spit 15 mL night before surgery and morning of surgery 473 mL 08/02/2023 08/21/2023 Discontinued (Stop Taking at Discharge)Start: 32-71-9729jowy 0.018 g by mouth twice dailyPeridex 0.12% Liquid 0.018 gram, 15 mL, Oral, BID, 480 mL, Refill(s) 0, (swish and spit; do not swallow) Start Date: 01/13/18 Status: OrderedStart: 27-72-3324rlkw 0.018 g by mouth twice daily Peridex 0.12% Liquid 0.018 gram, 15 mL, Oral, BID, 480 mL, Refill(s) 0, (swish and spit; do not swallow) Start Date: 01/13/18 Status: Orderedclindamycin 150 mg oral capsule (20 sources)Lincosamide AntibacterialStart: 11-10-2023 End: 91-55-1835vnrq 3 capsules by mouth three times dailyClindamycin Hcl 150 mg capsule Discontinued 450 MG PO Three times daily November 10, 2023 12:00am December 26, 2023 3:32pmStart: 11-10-2023 End: 15-62-3250tldq 450 mg by mouth three times dailyClindamycin Hcl Discontinued 450 MG PO Three times daily November 09, 2023 11:00pm December 26, 2023 2:32pmStart: 07-02-2021 End: 61-55-9987iygj 3 capsules by mouth three times dailyClindamycin Hcl 150 mg capsule Discontinued 450 MG PO Three times daily July 02, 2021 12:00am January 21, 2022 8:16pmStart: 07-02-2021 End: 58-00-7049cihu 450 mg by mouth three times dailyClindamycin Hcl Discontinued 450 MG PO Three times daily 90 July 01, 2021 11:00pm January 21, 2022 7:16pmStart: 06-30-2020 End: 46-13-3076hqbl 1 capsule by mouth every eight hoursClindamycin Hcl 300 mg capsule Discontinued 300 MG PO Q8H 30 June 30, 2020 12:00am November 27, 2020 6:42pmStart: 05-10-2020 End: 96-87-6637eiey 1 capsule by mouth every six hoursClindamycin Hcl 300 mg capsule Discontinued 300 MG PO Q6H 40 May 10, 2020 1:00am June 30, 2020 3:39pmStart: 18-30-1844abyb 2 capsules by mouth four times dailyclindamycin 150 mg Cap 300 mg = 2 cap(s), Oral, QID, # 80 cap(s), Refills(s) 0 Start Date: 01/13/18tatus: OrderedStart: 02-01-2017 End: 42-62-5647kate 1 capsule by mouth four times dailyClindamycin Hcl 150 mg capsule Discontinued 150 MG PO Four times daily 40 February 01, 2017 1:00am February 10, 2017 1:00am February 11, 2017 1:03amdexamethasone 4 mg oral tablet (20 sources)CorticosteroidStart: 08-30-2024 End: 72-00-0684jsjc 1 dose by mouth once8 mg, Oral, ONCE, 1 dose, On 08/30/24 at 1930Start: 08-21-2024 End: 33-23-602860 mg, IntraVENous, ONCE, On Sat08/21/24 at 1308, For 1 dose Start: 08-20-2024 End: 89-02-7698kxhx 1 dose by mouth once8 mg, Oral, ONCE, 1 dose, On Sat08/20/24 at 1824Start: 05-16-2024 End: 59-66-0837xmip 6 mg by mouth once daily6 mg, oral, Daily, First dose on Sat05/16/24 at 0900Start: 01-26-2024 End: 00-88-5696fygclp 10 mg by intramuscular injection once10 mg, intramuscular, Once, On 01/26/24 at 1700, For 1 doseStart: 03-55-6352xdow 4 mg by mouth every six hours4 mg, oral, Every 6 hours scheduled, First dose on Shira 01/02/24 at 0000Start: 01-01-2024 End: 07-63-510307 mg, intravenous, Once, On Sat01/01/24 at 1330, For 1 dose Start: 12-30-2023 End: 01-11-1129ufez 10 mg by mouth once10 mg, oral, Once, On Sat12/30/23 at 1925, For 1 doseStart: 09-10-2023 End: 64-94-2782jwwCKFAGtawuq (DECADRON) tablet 10 mgStart: 12-11-2022 End: 91-81-5147zhqo 1 tablet by mouth once dailyDexamethasone 6 mg tablet Discontinued 6 MG PO Daily December 11, 2022 12:00am January 04, 2023 3:20pmdiazePAM 5 mg oral tablet (13 sources)BenzodiazepineStart: 09-13-2024 End: 07-09-4177glwi 1 dose by mouth once5 mg, Oral, ONCE, 1 dose, On 09/13/24 at 1940Start: 01-21-2024 End: 69-67-1181lujj 5 mg by mouth once5 mg, oral, Once, On Sat01/21/24 at 1725, For 1 doseStart: 10-31-2023 End: 92-41-7426hyoi 5 mg by mouth once5 mg, oral, Once, On Sat10/31/23 at 2055, For 1 doseStart: 10-30-2023 End: 06-60-5634vvrjcHZQ (VALIUM) tablet 5 mgStart: 12-04-2022 End: 44-44-7417yjnc 1 tablet by mouth three times dailydiazePAM (VALIUM) 5 mg tablet Indications: Lumbar disc disease Take 1 Tab by mouth three times a day 10 Tab 12/04/2022 Activediclofenac sodium 0.01 mg/mg topical gel (20 sources)Nonsteroidal Anti-inflammatory DrugStart: 03-30-2024 End: 20-93-7358jybqcyfgxr sodium (Voltaren) 1 % gel Apply 4.5 inches (4 g) topically 4 times a day. 03/30/2024 05/02/2024 Discontinued (Stop Taking at Discharge)Start: 67-87-3065msntn 4 g topically four times dailydiclofenac (VOLTAREN ARTHRITIS PAIN) 1 % topical gel Apply 4 g to affected area four times daily. 450 g 2 03/30/2024 ActiveStart: 39-03-2178Yzuszqda Gel 1% Gel 1 kennedi, Topical, QID for pain, 100 gram, Refill(s) 0, [facility]/pharmacy #[id number], 160, cm, 11/24/23 13:46:00 EDT, Height/Length Dosing, 115, kg, 11/24/23 13:46:00 EDT, Weight Dosing Start Date: 11/24/23 Status: OrderedStart: 58-46-9242Tqdemhliaf Sodium 3 % as directed Externally apply to painful areas two to three times daily as needed for 30 days Aug, ActiveStart: 06-02-2021 End: 47-61-6314cljhg 4 g topically four times dailyDiclofenac Sodium 1 % gel Discontinued 4 GM TOPICAL Four times daily June 02, 2021 1:00am January 21, 2022 8:16pm apply to single knee, ankle, foot; for foot includes sole/toes/top of footStart: 06-02-2021 End: 33-51-1412lyduc 4 g topically four times dailyDiclofenac Sodium Discontinued 4 GM TOPICAL Four times daily June 02, 2021 12:00am January 21, 2022 7:16pm apply to single knee, ankle, foot; for foot includes sole/toes/top of foot1 ml diphenhydrAMINE hydrochloride 50 mg/ml cartridge (20 sources)Histamine-1 Receptor AntagonistStart: 04-95-285111.5 mg, IntraVENous, ONCE PRN, 1 dose, Starting on Sat11/27/24 at 1234, Until Discontinued, Itching, PACU onlyStart: 67-94-564346.5 mg, intravenous, Once as needed, itching, allergic reaction, Starting on Shira 02/06/24 at 1704,For 1 dose, Recovery (only)Start: 95-60-7087vtng 1 capsule by mouth every six hours as wedvyu70 mg, oral, Every 6 hours PRN, itching, Starting on 01/04/24 at 1116 Start: 74-97-1024tejn 25 mg by mouth once25 mg, oral, Once, On Sat12/13/23 at 2120, For 1 doseStart: 12-13-2023 End: 06-58-5744ydpj 1 tablet by mouth every six hoursdiphenhydrAMINE (Sominex) 25 mg tablet Indications: Skin irritation Take 1 tablet (25 mg) by mouth every 6 hours for 5 days. 20 tablet 12/13/2023 02/06/2024 Discontinued (Stop Taking at Discharge)famotidine 20 mg oral tablet (2 sources)Histamine-2 Receptor AntagonistStart: 03-30-2024 End: 77-27-0930gyss 1 tablet by mouth twice dailyfamotidine (PEPCID) 20 mg tablet Take 1 tablet by mouth two times a day for 14 days. Take with toradol 28 tablet 03/30/2024 04/13/2024 Expired1 ml fentaNYL 0.05 mg/ml injection (7 sources)Opioid AgonistStart: mcg, IntraVENous, EVERY 10 MIN PRN, 4 doses, Starting on Sat11/27/24 at 1234, Until Discontinued,Pain Moderate (4-6) OR per patient request for pain score (7-10), Pain Severe (7-10), Phase I - Initial therapy for moderate pain., PACU onlyStart: 11-87-571697 mcg, intravenous, Every 5 min PRN, pain severe (7-10), first line, Starting on Sat08/21/23 at 0946, Recovery (only), Max total of 200 micrograms regardless of dose., If ordered PRN for pain, nurseis permitted to administer this medication for higher pain scores based on patient preference? YesStart: mcg, intravenous, Every 5 min PRN, pain moderate (4-6), first line, Starting on Sat08/21/23 at 0946, Recovery (only), Max total of 200 micrograms regardless of dose., If ordered PRN for pain, nurse is permitted to administer this medication for higher pain scores based on patient preference? YesStart: 03-50-082335.5 mcg, intravenous, Every 5 min PRN, pain mild (1-3), first line, Starting on 08/21/23 at 0946, Recovery (only), Max total of 200 micrograms regardless of dose., If ordered PRN for pain, nurse is permitted to administer this medication for higher pain scores based on patient preference? YesStart: 08-09-2023 End: 13-97-0959bwpxbRUG (PF) (SUBLIMAZE) injection solution 50 mcgStart: 06-08-2023 End: 73-78-8142xalpeEIA (PF) (SUBLIMAZE) injection solution 50 mcgStart: 12-04-2022 End: 16-36-1021lpbkaHFH (PF) (SUBLIMAZE) injection solution 75 mcggabapentin 300 mg oral capsule (20 sources)Anti-epileptic AgentStart: 11-12-2022 End: 25-20-2029hcew 1 capsule by mouth three times dailyGabapentin 300 mg capsule Discontinued 300 MG PO Three times daily November 16, 2022 12:00am June 01, 2023 2:54pmgadoterate meglumine (Dotarem) 0.5 mmol/mL contrast injection 20 mL (7 sources)Start: 06-28-2024 End: 10-29-6981kfjkir 20 mL intravenously once20 mL, intravenous, Once in imaging, Starting on 06/28/24 at 0019, For 1 dose, Administer undiluted as rapid I.V. bolus injectionStart: 06-11-2024 End: 85-78-5560ltvajg 20 mL intravenously once20 mL, intravenous, Once in imaging, Starting on Shira 06/11/24 at 2303, For 1 dose, Administer undiluted as rapid I.V. bolus injectionStart: 05-16-2024 End: 55-90-3867mhbutm 20 mL intravenously once20 mL, intravenous, Once in imaging, Starting on 05/16/24 at 0124, For 1 dose, Administer undiluted as rapid I.V. bolus injectionStart: 12-18-2023 End: 72-17-2854gdxrji 20 mL intravenously once20 mL, intravenous, Once in imaging, Starting on 12/18/23 at 2119, For 1 dose, Administer undiluted as rapid I.V. bolus injectionStart: 12-06-2023 End: 93-39-736570 mL, intravenous, Once in imaging, Starting on Sat12/06/23 at 2150, For 1 doseStart: 11-13-2023 End: 82-26-1528qjzuqt 20 mL intravenously once20 mL, intravenous, Once in imaging, Starting on Sat11/13/23 at 2016, For 1 dose, Administer undiluted as rapid I.V. bolus injectionStart: 10-31-2023 End: 85-22-7294churpz 20 mL intravenously once20 mL, intravenous, Once in imaging, Starting on Sat10/31/23 at 2302, For 1 dose, Administer undiluted as rapid I.V. bolus injectiongadoterate meglumine (Dotarem) 0.5 mmol/mL contrast injection 23 mL (1 source)Start: 01-01-2024 End: 07-75-3638odlmum 23 mL intravenously once23 mL, intravenous, Once in imaging, Starting on Sat01/01/24 at 1655, For 1 dose, Administer undiluted as rapid I.V. bolus injectiongadoteridol (PROHANCE) injection 20 mL (2 sources)Start: 08-21-2024 End: 50-68-2275xuem 1 dose intravenously once20 mL, IntraVENous, IMG ONCE PRN, 1 dose, Starting on Sat08/21/24 at 1749, Until Sat08/21/24 at 1749, OtherStart: 10-30-2023 End: 36-61-4932gcudcgmswsk (PROHANCE) injection 20 mL1 ml HYDROmorphone hydrochloride 1 mg/ml cartridge (20 sources)Opioid AgonistStart: 01-28-2025 End: mg, Subcutaneous, NOW, 1 dose, On Shira 01/28/25 at 1615Start: 11-10-2024 End: .2 mg, intravenous, Once, On Sat11/10/24 at 0515, For 1 dose Start: 08-30-2024 End: 41-98-5967onfizb 0.5 mg by intramuscular injection once0.5 mg, IntraMUSCular, ONCE, 1 dose, On Sat08/30/24 at 1930, If oral and IV narcotics ordered, use oral first and only use IV if oral is ineffective or cannot take oral. Do Not give oral and IV within1 hour of each other unless specifically ordered.Start: 08-29-2024 End: 50.5 mg, intravenous, Once, On Sat08/29/24 at 0305, For 1 dose Start: 08-29-2024 End: 50.6 mg, intravenous, Once, On Sat08/29/24 at 0130, For 1 dose Start: 08-28-2024 End: 34-59-3607zndcdq 1 mg by intramuscular injection once1 mg, intramuscular, Once, On Sat08/28/24 at 2235, For 1 doseStart: 08-28-2024 End: 57-62-0594hsltba 0.5 mg by intramuscular injection once0.5 mg, intramuscular, Once, On Sat08/28/24 at 2135, For 1 doseStart: 08-26-2024 End: 75-19-4227ukgltf 0.5 mg by intramuscular injection once0.5 mg, IntraMUSCular, ONCE, 1 dose, On Sat08/26/24 at 1600, If oral and IV narcotics ordered, use oral first and only use IV if oral is ineffective or cannot take oral. Do Not give oral and IV within1 hour of each other unless specifically ordered.Start: 08-20-2024 End: 40-80-0252zhwvoj 0.5 mg by intramuscular injection once0.5 mg, IntraMUSCular, ONCE, 1 dose, On Sat08/20/24 at 1925, If oral and IV narcotics ordered, use oral first and only use IV if oral is ineffective or cannot take oral. Do Not give oral and IV within 1 hour of each other unless specifically ordered.Start: 08-18-2024 End: 47-06-6816bcvugy 0.5 mg by intramuscular injection once0.5 mg, IntraMUSCular, ONCE, 1 dose, On 08/18/24 at 1540, If oral and IV narcotics ordered, use oral first and only use IV if oral is ineffective or cannot take oral. Do Not give oral and IV within 1 hour of each other unless specifically ordered.Start: 06-20-2024 End: 65-62-9169hxhprh 1 dose by subcutaneous injection once1 mg, Subcutaneous, ONCE, 1 dose, On 06/20/24 at 1400Start: 06-18-2024 End: 64-32-3713wgduzg 1 dose by intramuscular injection once1 mg, Intramuscular, ONCE, 1 dose, On Shira 06/18/24 at 1900Start: 06-12-2024 End: 50.2 mg, intravenous, Once, On Sat06/12/24 at 0050, For 1 dose Start: 06-11-2024 End: 50.5 mg, intravenous, Once, On Shira 06/11/24 at 2340, For 1 dose Start: 05-16-2024 End: 72-32-1616ydza 0.2 mg intravenously every six hours as needed0.2 mg, intravenous, Every 6 hours PRN, pain breakthrough, Starting on Sat05/16/24 at 0654Start: 05-16-2024 End: 50.2 mg, intravenous, Every 3 hours PRN, pain breakthrough, Starting on Sat05/16/24 at 0503Start: 05-16-2024 End: 50.5 mg, intravenous, Once, On Sat05/16/24 at 0125, For 1 dose Start: 05-14-2024 End: 50.5 mg, intravenous, Once, On Shira 05/14/24 at 2130, For 1 dose Start: 05-14-2024 End: 51 mg, intravenous, Once, On [facility] 05/16/24 at 0310, For 1 doseStart: 05-01-2024 End: 50.5 mg, intravenous, Every 3 hours PRN, pain breakthrough, Starting on Sat05/01/24 at 1239Start: 05-01-2024 End: 50.5 mg, intravenous, Once, On Sat05/01/24 at 1030, For 1 dose Start: 05-01-2024 End: 50.5 mg, intravenous, Once, On Sat05/01/24 at 0340, For 1 dose Start: 04-23-2024 End: 50.5 mg, intravenous, Once, On Sat04/24/24 at 0345, For 1 dose Start: 40.5 mg, intravenous, Every 5 min PRN, pain severe (7-10), first line, Starting on Shira 02/06/24 at 1704, Recovery (only), Max total of 4 mg regardless of dose.Start: 40.25 mg, intravenous, Every 5 min PRN, pain moderate (4-6), first line, Starting on Sat02/06/24 [id number], Recovery (only), Max total of 4 mg regardless of dose.Start: 01-30-2024 End: 62-79-0659rejzuf 1 mg by intramuscular injection once1 mg, intramuscular, Once, On Shira 01/30/24 at 1140, For 1 doseStart: 48-24-6756kitj 1 mg intravenously every six hours as needed1 mg, intravenous, Every 6 hours PRN, pain severe (7- 10), first line, Starting on Sat01/27/24 at 1028Start: 01-26-2024 End: mg, intravenous, Once, On Sat01/26/24 at 2340, For 1 doseStart: 46-28-8066edgb 0.5 mg intravenously every four hours as needed0.5 mg, intravenous, Every 4 hours PRN, pain severe (7-10), first line, Starting on Sat01/06/24 [id number]: 01-06-2024 End: 40.5 mg, intravenous, Once, On Sat01/06/24 at 1935, For 1 dose Start: 40.5 mg, intravenous, Every 3 hours PRN, pain severe (7-10), first line, Starting on Sat01/03/24 [id number]: 01-02-2024 End: 40.4 mg, intravenous, Every 3 hours PRN, pain severe (7-10), first line, Starting on Sat01/02/24 [id number]: 01-02-2024 End: 49-11-8756jneu 0.2 mg intravenously every four hours as needed0.2 mg, intravenous, Every 4 hours PRN, pain severe (7-10), first line, Starting on Sat01/02/24 [id number]: 01-01-2024 End: 40.5 mg, intravenous, Once, On Sat01/01/24 at 2100, For 1 dose Start: 01-01-2024 End: 41 mg, intravenous, Once, On Sat01/01/24 at 1740, For 1 doseStart: 12-18-2023 End: 41 mg, intravenous, Once, On Shira 12/19/23 at 0745, For 1 doseStart: 12-18-2023 End: 40.5 mg, intravenous, Once, On Sat12/18/23 at 2100, For 1 dose Start: 12-15-2023 End: mg, intravenous, Once, On Sat12/15/23 at 2030, For 1 doseStart: 12-15-2023 End: 40.5 mg, intravenous, Once, On Sat12/15/23 at 2145, For 1 dose Start: 12-11-2023 End: 04-81-2481ndcshf 1 mg by subcutaneous injection once1 mg, subcutaneous, Once, On Sat12/11/23 at 1410, For 1 doseStart: 12-10-2023 End: 40.5 mg, intravenous, Once, On Sat12/10/23 at 0145, For 1 dose Start: 12-07-2023 End: 40.5 mg, intravenous, Once, On Sat12/07/23 at 1810, For 1 dose Start: 12-07-2023 End: 46-26-2479Gybkgvfs on Sat12/07/23 at 1807, For 1 dose, Created by shamir overrideStart: 12-07-2023 End: 40.5 mg, intravenous, Once, On Sat12/07/23 at 1535, For 1 dose Start: 12-06-2023 End: 41 mg, intravenous, Once, On 12/07/23 at 2010, For 1 doseStart: 02-89-8564ugbh 0.4 mg by mouth every three hours as needed for pain0.4 mg, intravenous, Every 3 hours PRN, pain breakthrough, breakthrough pain - 2nd line, use oral products first if ordered, Starting on Shira 11/14/23 at 1422, If oral and IV narcotics ordered, use oral first and only use IV if oral is ineffective or cannot take oral. Do NOT give oral and IV within one hour of each other unless specifically ordered.Start: 11-13-2023 End: 80-64-2925lwov 0.2 mg by mouth every three hours as needed for pain0.2 mg, intravenous, Every 3 hours PRN, pain breakthrough, breakthrough pain - 2nd line, use oral products first if ordered, Starting on Sat11/13/23 at 1444, If oral and IV narcotics ordered, use oral first and only use IV if oral is ineffective or cannot take oral. Do NOT give oral and IV within one hour of each other unless specifically ordered.Start: 11-09-2023 End: 40.2 mg, intravenous, Once, On 11/09/23 at 2145, For 1 dose Start: 10-31-2023 End: 40.4 mg, intravenous, Every 3 hours PRN, pain breakthrough, Starting on Shira 10/31/23 at 0829Start: 10-31-2023 End: 40.5 mg, intravenous, Once, On Shira 10/31/23 at 0355, For 1 dose Start: 10-05-2023 End: 40.5 mg, intravenous, Once, On Sat10/06/23 at 0235, For 1 dose Start: 40.5 mg, intravenous, Every 5 min PRN, pain severe (7-10), first line, Starting on Sat09/23/23 at 1113, Recovery (only), Max total of 4 mg regardless of dose.Start: 40.2 mg, intravenous, Every 5 min PRN, pain moderate (4-6), first line, Starting on Sat09/23/23 at 1113, Recovery (only), Max total of 4 mg regardless of dose.ibuprofen 800 mg oral tablet (20 sources)Nonsteroidal Anti-inflammatory DrugStart: 97-25-9186xgah 1 tablet by mouth every eight mg, oral, Every 8 hours, First dose (after last modification) on 05/16/24 at 0505, May administer with food to reduce GI upset.Start: 02-09-2024 End: 57-96-0187auir 1 tablet by mouth every six hours for painibuprofen 600 mg tablet Indications: Postoperative pain after spinal surgery Take 1 tablet (600 mg)by mouth every 6 hours if needed for mild pain (1 - 3) or fever (temp greater than 38.0 C). 30 tablet 02/09/2024 05/02/2024 Discontinued (Stop Taking at Discharge)Start: 09-10-2023 End: 65-35-6928rxqd 1 tablet by mouth three times daily as needed for pain ibuprofen (ADVIL;MOTRIN) 600 MG tablet Take 1 tablet by mouth 3 times daily as needed for Pain 30 tablet 08/20/2024 ActiveStart: 07-17-2023 End: 70-19-8496janq 1 tablet by mouth three times dailyibuprofen 800 mg Tab 800 mg = 1 tab(s), Oral, TID, # 30 tab(s), Refills(s) 0, Pharmacy: [facility]/pharmacy #[id number], 160, cm, 07/17/23 8:06:00 EDT, Height/Length Dosing, 116.8, kg, 07/17/23 8:06:00 EDT, Weight Dosing Start Date: 07/17/23 Status: Ordered Medication Dispense Status: Completed Quantity: 30.0 Unit: tab(s) Total Allowed Fills: 1 Fills Dispensed: 0Start: 10-50-5279mbbw 1 tablet by mouth every six hours ibuprofen 600 mg Tab 600 mg = 1 tab(s), Oral, q6hr, Pt is to start this after she has completed thecourse of prednisone, # 40 tab(s), Refills(s) 0, Pharmacy: [facility]/pharmacy #[id number], 160, cm, 06/27/23 11:54:00 EDT, Height/Length Dosing, 117.2, kg, 06/27/23 11:54:00 EDT, Weight Dosing Start Date: 06/27/23Status: Ordered Start: 02-21-2023 End: 15-07-2821ceti 1 tablet by mouth every eight hours as needed for pain Ibuprofen 800 mg tablet Discontinued 800 MG PO Every 8 hours as needed for pain April 24, 2024 1:00am October 18, 2024 8:49pmStart: 01-12-2023 End: 65-72-9288fsac 1 tablet by mouth three times daily as needed for pain Ibuprofen 800 mg tablet Discontinued 800 MG PO Three times daily as needed for pain January 12, 2023 12:00am June 01, 2023 2:54pmStart: 08-31-2022 End: 20-55-1679vgga 1 tablet by mouth three times daily as needed for pain Ibuprofen 800 mg tablet Discontinued 800 MG PO Three times daily as needed for Pain August 31, 2022 12:00am September 01, 2022 2:59pmStart: 03-19-2022 End: 45-19-8381urif 1 tablet by mouth three times daily as needed for pain Ibuprofen 800 mg tablet Discontinued 800 MG PO Three times daily as needed for Pain March 19, 2022 1:00am March 29, 2022 2:25pmStart: 01-21-2022 End: 31-64-6838wrdj 1 tablet by mouth every six hours as needed for pain Ibuprofen 800 mg tablet Discontinued 800 MG PO Q6H as needed for Pain January 21, 2022 12:00am September 28, 2022 5:16pmStart: 05-10-2020 End: 71-31-8993qucg 1 tablet by mouth three times daily as needed for pain Ibuprofen 800 mg tablet Discontinued 800 MG PO Three times daily as needed for pain May 10, 2020 11:42am June 30, 2020 3:39pmStart: 97-99-2723quvo 1 tablet by mouth every eight hoursibuprofen 600 mg Tab 600 mg = 1 tab(s), Oral, q8hr, # 60 tab(s), Refills(s) 0 Start Date: 01/13/18 Status: OrderedStart: 02-01-2017 End: 34-54-2127eaki 1 tablet by mouth three times dailyIbuprofen 800 mg tablet Discontinued 800 MG PO Three times daily February 01, 2017 1:00am 2017 2:32pmtake 2 tablets by mouth every six hours as neededIbuprofen 400 MG tablet Take 2 tablets by mouth every 6 hours as needed for Mild Pain. Active iohexoL (OMNIPAQUE) 350 mg iodine/mL intravenous solution 100 mL (1 source)Start: 12-04-2023 End: mL, IV Push, TO CT SCAN-ONCE, 1 dose, On 12/04/23 at 2250 iohexol (OMNIPaque) 350 mg iodine/mL solution 70 mL (1 source)Start: 11-09-2023 End: mL, intravenous, Once in imaging, Starting on 11/09/23 at 1452, For 1 doseiohexol (OMNIPaque) 350 mg iodine/mL solution 75 mL (1 source)Start: 12-15-2023 End: mL, intravenous, Once in imaging, Starting on 12/15/23 at 1937, For 1 doseiohexol (OMNIPaque) 350 mg iodine/mL solution 80 mL (1 source)Start: 12-07-2023 End: mL, intravenous, Once in imaging, Starting on 12/07/23 at 1718, For 1 dose1 ml ketorolac tromethamine 30 mg/ml cartridge (20 sources)Nonsteroidal Anti-inflammatory Drug, Cyclooxygenase InhibitorStart: 10-24-2024 End: mg, IntraMUSCular, ONCE, 1 dose, On 10/24/24 at 2300, Do not administer for more than 5 days.Start: 64-66-6360tpff 1 tablet by mouth every eight hoursStart: 06-28-2024 End: 28-83-147511 mg, intravenous, Once, On 06/28/24 at 0050, For 1 doseStart: 06-18-2024 End: 38-43-9607exgeiz 1 dose by intramuscular injection once30 mg, Intramuscular, ONCE, 1 dose, On [place] 06/18/24 at 1900Start: 06-06-2024 End: 96-34-281916 mg, Intramuscular, NOW, 1 dose, On 06/06/24 at 1225Start: 05-16-2024 End: 34-18-539521 mg, intravenous, Once, On 05/16/24 at 0125, For 1 dose Start: 05-01-2024 End: 53-42-7399zomy 30 mg intravenously every six hours30 mg, intravenous, Every 6 hours, First dose on Sat05/01/24 at 1240, For 5 daysStart: 04-23-2024 End: 88-89-0689bpysha 15 mg by intramuscular injection once15 mg, intramuscular, Once, On [place] 04/23/24 at 2230, For 1 doseStart: 03-28-2024 End: 72-13-762705 mg, intravenous, Once, On 03/28/24 at 0055, For 1 doseStart: 02-09-2024 End: 32-35-5524jnuovx 15 mg by intramuscular injection once15 mg, intramuscular, Once, On Sat02/09/24 at 1200, For 1 doseStart: 01-27-2024 End: 31-52-2118zxkx 30 mg intravenously every six hours as zuhssu96 mg, intravenous, Every 6 hours PRN, pain moderate (4-6), first line, Starting on Sat01/27/24 at 1029, For 5 days, Do not administer within 6 hours of other NSAIDs (such as ibuprofen or naproxen).Start: 01-26-2024 End: 02-24-0097hivjpp 15 mg by intramuscular injection once15 mg, intramuscular, Once, On Sat01/26/24 at 1700, For 1 doseStart: 01-21-2024 End: 19-17-3136ewjjzv 30 mg by intramuscular injection once30 mg, intramuscular, Once, On Sat01/21/24 at 1715, For 1 doseStart: 12-19-2023 End: 76-24-046932 mg, intravenous, Once, On [place] 12/19/23 at 0040, For 1 dose Start: 12-09-2023 End: 59-16-0692pbqqkh 15 mg by intramuscular injection once15 mg, intramuscular, Once, On Sat12/09/23 at 1600, For 1 doseStart: 12-07-2023 End: 55-33-088953 mg, intravenous, Once, On 12/07/23 at 0205, For 1 dose Start: 06-15-2023 End: 60-22-2690rmokezcfg (Toradol) injection 30 mgStart: 44-39-3842pgto 1 tablet by mouth every six hours as neededketorolac (TORADOL) 10 mg tablet Take 1 Tab by mouth every 6 hours as needed for up to 30 doses 30 Tab 04/28/2023 Active Start: 04-27-2023 End: 91-06-3466jwnunygxh (TORADOL) injection 15 mgStart: 06-16-2022 End: 84-36-1847lkdz 1 tablet by mouth every six hours as needed for pain Ketorolac 10 mg tablet Discontinued 10 MG PO Q6H as needed for pain June 16, 2022 12:00am August 26, 2022 3:39pmlevoFLOXacin 750 mg oral tablet (20 sources)Quinolone AntimicrobialStart: 02-03-2022 End: 56-25-1735iqzy 1 tablet by mouth once dailyLevofloxacin 750 mg tablet Discontinued 750 MG PO Daily 12 01February 03, 2022 1:00am March 2:25pmmeloxicam 15 mg oral tablet (20 sources)Nonsteroidal Anti-inflammatory DrugStart: 01-28-2024 End: 18-28-7260mcwd 1 tablet by mouth once dailymeloxicam (Mobic) 15 mg tablet Indications: Chronic pain syndrome Take 1 tablet (15 mg) by mouth once daily. 14 tablet 01/28/2024 11:14 AM EST 01/28/2024 02/06/2024 Discontinued (Stop Taking at Discharge)Start: 09-04-2022 End: 65-61-5474crxq 1 tablet by mouth once dailymeloxicam (Mobic) 15 mg tablet Indications: Chronic low back pain, unspecified back pain laterality, unspecified whether sciatica present Take 1 tablet (15 mg) by mouth once daily. 30 tablet 2 01/22/2023 04/01/2023 Discontinued (Therapy completed)Start: 20-29-6042kwrv 1 tablet by mouth every twenty-four hoursMeloxicam 15 MG 1 tablet Orally Once a day for 30 day(s) Dec, Active1 ml meperidine hydrochloride 25 mg/ml cartridge (2 sources)Opioid AgonistStart: 79-34-046913.5 mg, IntraVENous, ONCE PRN, 1 dose, Starting on Sat11/27/24 at 1234, Until Discontinued, Shivering, Shivering,, PACU onlyStart: 89-62-524371.5 mg, intravenous, Every 10 min PRN, shivering, Starting on Sat09/23/23 at 1113, Recovery (only)methadone hydrochloride 5 mg oral tablet (3 sources)Opioid AgonistStart: 03-30-2024 End: 29-93-8136leda 1 tablet by mouth every six hours for painmethadone (Dolophine) 5 mg tablet Indications: Postlaminectomy syndrome, lumbar region Take 1 tablet (5 mg) by mouth every 6 hours if needed for severe pain (7 - 10). 60 tablet 03/30/2024 05/02/2024 Discontinued (Stop Taking at Discharge)2 ml metoclopramide 5 mg/ml prefilled syringe (20 sources)Dopamine-2 Receptor AntagonistStart: mg, IntraVENous, ONCE PRN, 1 dose, Starting on Sat11/27/24 at 1234, Until Discontinued, Nausea, Se condary antiemetic therapy if not given intraoperatively., PACU onlyStart: 04-98-0207qrbf 1 tablet by mouth every six hoursReglan 10 mg Tab 10 mg = 1 tab(s), Oral, q6hr, # 12 tab(s), Refills(s) 0, Pharmacy: [facility]/pharmacy #[id number], 160, cm, 08/12/23 20:54:00 EDT, Height/Length Dosing, 114.7, kg, 08/12/23 20:54:00 EDT, Weight Dosing Start Date: 08/12/23 Status: OrderedStart: 03-26-2023 End: 26-31-7449zjfr 1 tablet by mouth three times dailyReglan 10 mg Tab 10 mg = 1 tab(s), Oral, TID, X 5 day(s), # 15 tab(s), Refills(s) 0, Pharmacy: [facility]/p harmacy #[id number], 160, cm, 03/26/23 10:58:00 EST, Height/Length Dosing, 110, kg, 03/26/23 10:58:00 EST, Weight Dosing Start Date: 03/26/23 Stop Date: 03/31/23 Status: [place]35 ml morphine sulfate 10 mg/ml injection (20 sources)Opioid AgonistStart: 01-18-2025 End: mg, Subcutaneous, NOW, 1 dose, On Sat01/18/25 at 1945Start: 10-31-2024 End: 63-14-0300vmyt 1 dose by mouth every hour4 mg, IntraMUSCular, ONCE, 1 dose, On Sat10/31/24 at 1329, If oral and IV narcotics ordered, use oral first and only use IV if oral is ineffective or cannot take oral. Do Not give oral and IV within 1hour of each other unless specifically ordered.Start: 10-28-2024 End: 40-60-9572lkyo 1 dose by mouth every hour4 mg, IntraVENous, ONCE, 1 dose, On Sat10/28/24 at 2030, If oral and IV narcotics ordered, use oral first and only use IV if oral is ineffective or cannot take oral. Do Not give oral and IV within 1 hour of each other unless specifically ordered.Start: 10-14-2024 End: 34-83-6714xyfttd 1 dose by intramuscular injection once4 mg, IntraMUSCular, ONCE, 1 dose, On Sat10/14/24 at 1142Start: 10-05-2024 End: 45-19-8849emyvgp 1 dose by intramuscular injection once4 mg, IntraMUSCular, ONCE, 1 dose, On Sat10/05/24 at 1309Start: 09-16-2024 End: 35-96-7945cwxx 1 dose by mouth every hour4 mg, IntraMUSCular, ONCE, 1 dose, On Sat09/16/24 at 1822, If oral and IV narcotics ordered, use oral first and only use IV if oral is ineffective or cannot take oral. Do Not give oral and IV within 1 hour of each other unless specifically ordered.Start: 09-14-2024 End: 90-62-3226sdbi 1 dose by mouth every hour4 mg, IntraMUSCular, ONCE, 1 dose, On Sat09/14/24 at 1708, If oral and IV narcotics ordered, use oral first and only use IV if oral is ineffective or cannot take oral. Do Not give oral and IV within 1 hour of each other unless specifically ordered.Start: 08-21-2024 End: mg, IntraVENous, ONCE, 1 dose, On Sat08/21/24 at 1558Start: 08-21-2024 End: mg, IntraVENous, ONCE, 1 dose, On Sat08/21/24 at 1308Start: 06-28-2024 End: 54 mg, intravenous, Once, On Sat06/28/24 at 0150, For 1 doseStart: 06-06-2024 End: mg, Intramuscular, NOW, 1 dose, On 06/06/24 at 1235Start: 05-14-2024 End: mg, intravenous, Once, On Shira 05/14/24 at 1640, For 1 doseStart: 03-09-2024 End: 55-51-1846fdhvgg 4 mg by subcutaneous injection once4 mg, subcutaneous, Once, On Sat03/09/24 at 1920, For 1 doseStart: 01-27-2024 End: 74-49-9844nqgu 2 mg intravenously every four hours as needed2 mg, intravenous, Every 4 hours PRN, pain severe (7-10), second line, pain breakthrough, Starting on Sat01/27/24 at 0414Start: 01-26-2024 End: mg, intravenous, Once, On [place] 01/26/24 at 2030, For 1 doseStart: 01-26-2024 End: 85-46-2065nlhixa 2 mg by intramuscular injection once2 mg, intramuscular, Once, On Sat01/26/24 at 1755, For 1 doseStart: 01-24-2024 End: 15-73-7908rrzncy 4 mg by intramuscular injection once4 mg, intramuscular, Once, On Sat01/24/24 at 2015, For 1 doseStart: 01-21-2024 End: 23-00-1134ltcvwa 4 mg by intramuscular injection once4 mg, intramuscular, Once, On Sat01/21/24 at 1725, For 1 doseStart: 01-13-2024 End: 07-83-6874nmdsfj 4 mg by intramuscular injection once4 mg, intramuscular, Once, On Sat01/13/24 at 1420, For 1 doseStart: 01-10-2024 End: mg, intravenous, Once, On Sat01/10/24 at 2000, For 1 dose Start: 01-01-2024 End: 13-76-0511fwmd 2 mg intravenously every four hours as needed2 mg, intravenous, Every 4 hours PRN, pain severe (7-10), first line, Starting on Sat01/01/24 at 2225Start: 12-06-2023 End: mg, intravenous, Once, On Sat12/06/23 at 1605, For 1 doseStart: 12-04-2023 End: mg, IV Push, NOW, 1 dose, On Sat12/04/23 at 2235Start: 11-13-2023 End: mg, intravenous, Once, On Sat11/13/23 at 1115, For 1 doseStart: 11-09-2023 End: mg, intravenous, Once, On Sat11/09/23 at 1640, For 1 doseStart: 10-31-2023 End: 06-95-0813ltbviedb injection 4 mgStart: 10-30-2023 End: 72-72-8960abblxaxp injection 4 mgStart: 10-30-2023 End: 08-48-4619hszeufwg injection 4 mgmorphine (INFUMORPH) 10 mg, sodium chloride (PF) 0.9 % 50 mL (1 source)Start: 10-08-2024 End: 66-78-5714Zyimkoaksyy, at 60 mL/hr, Administer over 1 Minutes, ONCE, On Shira 10/08/24 at 1130, For 1 dose, Intra-opMultivitamin Capsule (20 sources)Start: 06-30-2020 End: 74-40-5990Golozhcfbyrd Capsule Discontinued CAP June 30, 2020 12:00am November 27, 2020 6:42pmStart: 06-30-2020 End: 52-18-9220Ltznmksmrohf Capsule Discontinued CAP June 29, 2020 11:00pm November 27, 2020 5:42pmMultivitamin preparation (20 sources)Start: 06-30-2020 End: 30-03-3073Ekdeyujkxbot Discontinued CAP June 29, 2020 11:00pm November 27, 2020 5:42pmStart: 06-30-2020 End: 27-68-9598Tynbkwzvfnsc Discontinued CAP June 30, 2020 12:00am November 27, 2020 6:42pmnabumetone 750 mg oral tablet (20 sources)Nonsteroidal Anti-inflammatory DrugStart: 10-02-2022 End: 28-42-7832uojd 1 tablet by mouth twice dailyNabumetone 750 mg tablet Discontinued 750 MG PO Twice daily October 02, 2022 12:00am October 07, 2022 12:25pmnitrofurantoin, macrocrystals 25 mg / nitrofurantoin, monohydrate 75 mg oral capsule (20 sources)Nitrofuran AntibacterialStart: 10-10-2021 End: 38-04-6634ynxm 1 capsule by mouth twice daily at mealtimeNitrofurantoin Monohyd/M-Cryst (Macrobid) 100 mg capsule Discontinued 100 MG PO Twice daily 12 27October 10, 2021 12:00am January 21, 2022 8:16pm must administer with a meal/food2 ml ondansetron 2 mg/ml injection (20 sources)Serotonin-3 Receptor AntagonistStart: mg, IntraVENous, ONCE PRN, 1 dose, Starting on Sat11/27/24 at 1234, Until Discontinued, Nausea, Initial antiemetic therapy., PACU onlyStart: 10-31-2024 End: 05-48-7759kjwq 1 dose by mouth once4 mg, Oral, ONCE, 1 dose, On 10/31/24 at 1329Start: 09-14-2024 End: 33-11-6040wahr 1 dose by mouth once4 mg, Oral, ONCE, 1 dose, On 09/14/24 at 1708Start: 08-20-2024 End: 21-30-9146iewk 1 dose by mouth once4 mg, Oral, ONCE, 1 dose, On Shira 08/20/24 at 1816Start: 53-49-8837tcqt 1 tablet by mouth every eight hours as needed for nauseaZofran 4 mg Tab 4 mg = 1 tab(s), Oral, q8hr, PRN Nausea/Vomiting, # 30 tab(s), Refills(s) 1, Pharmacy: [facility] #[id number], 160, cm, 07/21/24 9:58:00 EDT, Height/Length Dosing, 126.6, kg, 07/21/24 9:58:00 EDT, Weight Dosing Start Date: 08/06/24 Status: Ordered Quantity: 30.0 Unit: tab(s) Repeat number: 2 Indications: Nausea;Start: 06-20-2024 End: 48-27-7845hhvd 1 dose by mouth once4 mg, Oral, ONCE, 1 dose, On 06/20/24 at 1430Start: 06-06-2024 End: mg, Oral, NOW, 1 dose, On 06/06/24 at 1225Start: 05-14-2024 End: 54 mg, intravenous, Once, On Shira 05/14/24 at 1640, For 1 dose, When administering via IV Push, administer over 3-5 minutes.Start: 03-09-2024 End: 75-42-4243fmbk 8 mg by mouth once8 mg, oral, Once, On 03/09/24 at 1920, For 1 doseStart: mg, intravenous, Once as needed, nausea/vomiting, first line, Starting on [place]ira 02/06/24 at 1704, For 1 dose, Recovery (only), When administering via IV Push, administer over 3-5 minutes.Start: 01-30-2024 End: 14-38-0087gbth 4 mg by mouth once4 mg, oral, Once, On Shira 01/30/24 at 1140, For 1 doseStart: 70-59-6258krzc 4 mg intravenously every four hours as needed4 mg, intravenous, Every 4 hours PRN, nausea/vomiting, first line, Starting on Sat01/27/24 at 0415,When administering via IV Push, administer over 3-5 minutes. Start: 01-10-2024 End: mg, intravenous, Once, On Sat01/10/24 at 2000, For 1 dose, When administering via IV Push, administer over 3-5 minutes.Start: 01-06-2024 take 4 mg intravenously every six hours as needed4 mg, intravenous, Every 6 hours PRN, nausea/vomiting, first line, Starting on Sat01/06/24 at 2144, When administering via IV Push, administer over 3-5 minutes.Start: 12-21-2023 End: 22-06-5873wfvz 1 tablet by mouth every eight hours for nauseaondansetron ODT (Zofran-ODT) 4 mg disintegrating tablet Indications: Acute exacerbation of chronic low back pain , Contusion of lower back, initial encounter Take 1 tablet (4 mg) by mouth every 8 hours if needed for nausea or vomiting for up to 7 days. 20 tablet 12/21/2023 01/04/2024 Discontinued (Stop Taking at Discharge) Start: 12-15-2023 End: mg, intravenous, Once, On 12/15/23 at 1910, For 1 dose, When administering via IV Push, administer over 3-5 minutes.Start: 12-07-2023 End: 44 mg, intravenous, Once, On 12/07/23 at 0105, For 1 dose, When administering via IV Push, administer over 3-5 minutes.Start: 12-06-2023 End: 90-29-4306bnor 4 mg by mouth once4 mg, oral, Once, On Sat12/06/23 at 1605, For 1 doseStart: 44-61-1231crpv 1 tablet by mouth every eight hours as needed ondansetron (Zofran) tablet 4 mgStart: 11-09-2023 End: mg, intravenous, Once, On 11/09/23 at 1335, For 1 dose, When administering via IV Push, administer over 3-5 minutes.Start: mg, intravenous, Once as needed, nausea/vomiting, first line, Starting on Sat08/21/23 at 0946, For 1 dose, Recovery (only), When administering via IV Push, administer over 3-5 minutes.Start: 06-08-2023 End: 65-17-3358wcrkijboxlj (ZOFRAN ODT) RAPID DISSOLVING tablet 4 mgStart: 42-63-3551hwzv 1 tablet by mouth every eight hoursStart: 15-59-3565aspr 1 tablet by mouth every six hours as needed for nauseaZofran 4 mg Tab 4 mg = 1 tab(s), Oral, q6hr, PRN Nausea, Take one tab by mouth every six hours as needed for nausea, # 10 tab(s), Refills(s) 0 Start Date: 03/11/23 Status: Ordered Quantity: 10.0 Unit: tab(s) Repeat number: 1Start: 04-28-5765qoop 1 tablet by mouth every six hours as neededondansetron (ZOFRAN ODT) RAPID DISSOLVING tablet 4 mgStart: 11-14-2021 End: 35-76-9976ipqq 1 tablet by mouth every eight hours as needed for nausea and vomitingOndansetron 4 mg tablet,disintegrating Discontinued 4 MG PO Q8H as needed for nausea and vomiting 62 January 21, 2022 12:00am March 29, 2022 2:25pmStart: 20-19-2367kxvi 4 mg by mouth every eight hoursOndansetron Active 4 MG PO Q8H 6 November 14, 2021 12:00amStart: 51-01-6561vgjh 4 mg by mouth every eight hoursOndansetron Active 4 MG PO Q8H 6 November 14, 2021 12:00amStart: 02-02-2020 End: 86-83-7898mnsu 1 tablet by mouth every eight hoursOndansetron 4 mg tablet,disintegrating Discontinued 4 MG PO Q8H 9 February 02, 2020 1:00am June 30, 2020 3:39pm2 ml orphenadrine citrate 30 mg/ml injection (10 sources)Muscle RelaxantStart: 10-24-2024 End: 52-60-0034lrmjkr 1 dose by intramuscular injection once60 mg, IntraMUSCular, ONCE, 1 dose, On Sat10/24/24 at 2300Start: 10-14-2024 End: 19-83-4864qubnhh 1 dose by intramuscular injection once60 mg, IntraMUSCular, ONCE, 1 dose, On Sat10/14/24 at 1142Start: 09-05-2024 End: 40-80-7111cuartx 1 dose by intramuscular injection once60 mg, IntraMUSCular, ONCE, 1 dose, On Sat09/05/24 at 2331Start: 09-01-2024 End: 67-20-0536fylyac 1 dose by intramuscular injection once60 mg, IntraMUSCular, ONCE, 1 dose, On Sat09/01/24 at 1503Start: 08-29-2024 End: 23-73-322638 mg, intravenous, Once, On Sat08/29/24 at 0015, For 1 doseStart: 08-26-2024 End: 52-08-5022fizpxy 1 dose by intramuscular injection once60 mg, IntraMUSCular, ONCE, 1 dose, On Sat08/26/24 at 1600Start: 08-18-2024 End: 77-54-6444dhjyvv 1 dose by intramuscular injection once60 mg, IntraMUSCular, ONCE, 1 dose, On Sat08/18/24 at 1540Start: 03-28-2024 End: 07-07-197775 mg, intravenous, Once, On 03/28/24 at 0055, For 1 doseStart: 03-09-2024 End: 08-68-8153nerpfj 60 mg by intramuscular injection once60 mg, intramuscular, Once, On Sat03/09/24 at 1920, For 1 doseStart: 06-15-2023 End: 90-26-0467wltlqdodcanc (Norflex) injection 60 mgoxyCODONE hydrochloride 10 mg oral tablet (20 sources)Opioid AgonistStart: 36-07-7086vvdg 1 tablet by mouth every twelve hours as neededoxyCODONE 10 mg ER Tab 10 mg = 1 tab(s), Oral, q12hr, PRN severe pain, 1 w supply pain management provider [place], # 14 tab(s), Refills(s) 0, Pharmacy: [facility] #[id number], 160, cm, 02/02/25 15:15:00 EST, Height/Length Dosing, 121.6, kg, 02/02/25 15:15:00 EST, Weight Dosing Start Date: 02/02/25 Status: Ordered Medication Dispense Status: Completed Quantity: 14.0 Unit: tab(s) Total Allowed Fills: 1 Fills Dispensed: 0 Indications: Other chronic pain;Start: 11-27-2024 End: 55-62-7778mkiq 1 dose by mouth once for pain5 mg, Oral, ONCE PRN, 1 dose, Starting on Sat11/27/24 at 1234, Until Sat11/27/24 at 1338, Pain Moderate (4-6) OR per patient request for pain score (7-10), Pain Severe (7-10), PHASE II, PACU onlyStart: 11-24-2024 End: 26-81-3122wzlt 1 tablet by mouth every eight hours as needed for pain oxyCODONE (ROXICODONE) 5 MG immediate release tablet Indications: Failed back syndrome Take 1 tablet by mouth every 8 hours as needed for Pain for up to 30 days. Intended supply: Take lowest dose possible to manage pain Max Daily Amount: 15 mg 90 tablet 11/24/2024 12/24/2024 ActiveStart: 11-10-2024 End: 74-32-7667djeo 5 mg by mouth once as needed for pain5 mg, oral, Once, On Sat11/10/24 at 0600, For 1 dose, If ordered PRN for pain, nurse is permitted to administer this medication for higher pain scores based on patient preference? YesStart: 11-10-2024 End: 24-11-6546rynf 10 mg by mouth once as needed for pain10 mg, oral, Once, On Sat11/10/24 at 0525, For 1 dose, If ordered PRN for pain, nurse is permitted to administer this medication for higher pain scores based on patient preference? YesStart: 11-02-2024 End: 81-40-4663vovc 1 tablet by mouth every eight hours as needed for pain oxyCODONE HCl (OXY-IR) 10 MG immediate release tablet Indications: Failed back syndrome Take 1 tablet by mouth every 8 hours as needed for Pain for up to 30 days. Max Daily Amount: 30 mg 90 tablet 11/02/2024 11/24/2024 DiscontinuedStart: 09-13-2024 End: 07-10-3479sdfk 1 dose by mouth once5 mg, Oral, ONCE, 1 dose, On Sat09/13/24 at 2040Start: 09-07-2024 End: 59-70-5160fgit 1 tablet by mouth three times dailyStart: 08-20-2024 End: 09-12-8911rabb 1 dose by mouth once5 mg, Oral, Once, 1 dose, On Sat08/20/24 at 2118Start: 08-20-2024 End: 65-72-1730nqxl 2 tablets by mouth every eight hours as needed for pain oxyCODONE (ROXICODONE) 5 MG immediate release tablet Indications: Failed back syndrome Take 2 tablets by mouth every 8 hours as needed for Pain for up to 3 days. Max Daily Amount: 30 mg 18 tablet 08/20/2024 08/23/2024 ActiveStart: 08-04-2024 End: 83-41-1584ijfr 1 tablet by mouth every eight hours as needed for pain oxyCODONE (ROXICODONE) 5 MG immediate release tablet Indications: Failed back syndrome Take 1 tablet by mouth every 8 hours as needed for Pain for up to 30 days. Max Daily Amount: 15 mg 90 tablet 08/04/2024 08/20/2024 DiscontinuedStart: 40-09-1668umku 1 tablet by mouth every twelve hours as needed for painoxyCODONE 10 mg ER Tab 10 mg = 1 tab(s), Oral, q12hr, PRN severe pain, Refills(s) 0 Start Date: 07/20/24 Status: Ordered Repeat number: 1Start: 06-27-2024 End: 94-28-1581xhoo 5 mg by mouth once as needed for pain5 mg, oral, Once, On 06/27/24 at 2205, For 1 dose, If ordered PRN for pain, nurse is permitted to administer this medication for higher pain scores based on patient preference? YesStart: 06-14-2024 End: 53-56-6987cnfq 1 tablet by mouth every six hours for painoxyCODONE (Roxicodone) 5 mg immediate release tablet Indications: Back pain, unspecified back location, unspecified back pain laterality, unspecified chronicity , Acute on chronic back pain , Chroniclow back pain with left-sided sciatica, unspecified back pain laterality , Back pain with radiation, Lumbar disc herniation with radiculopathy , Chronic low back pain without sciatica, unspecified back pain laterality , Continuous opioid dependence (Multi) Take 1 tablet (5 mg) by mouth every 6 hours if needed for moderate pain (4 - 6). 15 tablet 06/14/2024 ActiveStart: 06-12-2024 End: 62-39-3854rwlz 1 tablet by mouth every four hours as mg, oral, Every 4 hours PRN, pain severe (7-10), first line, Starting on 06/13/24 at 0431, For 6 doses, If ordered PRN for pain, nurse is permitted to administer this medication for higher painscores based on patient preference? YesStart: 06-01-2024 End: 56-80-2389jblr 1 capsule by mouth every six hours as neededoxyCODONE (Oxy- IR) 5 mg immediate release capsule Take 1 capsule (5 mg) by mouth every 6 hours if needed (breakthrough pain). 06/01/2024 06/12/2024 Discontinued (Therapy completed)Start: 95-05-7465kgdi 1 tablet by mouth every six hours as mldkic28 mg, oral, Every 6 hours PRN, pain severe (7-10), first line, Starting on 05/16/24 at 0502Start: 05-02-2024 End: 78-30-7377yzrp 1 tablet by mouth every six hours for painoxyCODONE (Roxicodone) 10 mg immediate release tablet Indications: Chronic pain syndrome Take 1 tablet (10 mg) by mouth every 6 hours if needed for severe pain (7 - 10). 28 tablet 05/17/2024 06/14/2024 Discontinued (Stop Taking at Discharge)Start: 65-03-0781qifb 1 tablet by mouth every six hours as pemkxs37 mg, oral, Every 6 hours PRN, pain severe (7-10), first line, Starting on Sat05/01/24 at 1238, If o rdered PRN for pain, nurse is permitted to administer this medication for higher pain scores based on patient preference? YesStart: 05-01-2024 End: 71-29-5603dvks 1 tablet by mouth every four hours as needed5 mg, oral, Every 4 hours PRN, pain moderate (4-6), first line, Starting on Sat06/12/24 at 0116, For 6 doses, If ordered PRN for pain, nurse is permitted to administer this medication for higher painscores based on patient preference? YesStart: 05-01-2024 End: 62-87-0677nchw 5 mg by mouth once as needed for pain5 mg, oral, Once, On Sat05/01/24 at 0820, For 1 dose, If ordered PRN for pain, nurse is permitted to administer this medication for higher pain scores based on patient preference? YesStart: 03-19-2024 End: 39-65-2600xcyu 5 mg by mouth once as needed for pain5 mg, oral, Once, On [place] 03/19/24 at 2030, For 1 dose, If ordered PRN for pain, nurse is permitted to administer this medication for higher pain scores based on patient preference? Yes, Indications: painStart: 03-19-2024 End: 13-83-7002jojf 1 tablet by mouth every eight hours for painoxyCODONE (Roxicodone) 5 mg immediate release tablet Indications: Bilateral low back pain without sciatica, unspecified chronicity , Fall, initial encounter Take 1 tablet (5 mg) by mouth every 8 hours if needed for severe pain (7 - 10) for up to 2 days. 6 tablet 03/19/2024 03/21/2024 ActiveStart: 03-09-2024 End: 87-47-6807tktq 10 mg by mouth once as needed for pain10 mg, oral, Once, On 03/09/24 at 2140, For 1 dose, If ordered PRN for pain, nurse is permittedto administer this medication for higher pain scores based on patient preference? YesStart: 02-09-2024 End: 69-82-6330ibgd 5 mg by mouth once as needed for pain5 mg, oral, Once, On 02/09/24 at 1340, For 1 dose, If ordered PRN for pain, nurse is permitted to administer this medication for higher pain scores based on patient preference? Yes, Indications: painStart: 02-09-2024 End: 93-26-9158gmfa 10 mg by mouth once as needed for pain10 mg, oral, Once, On 02/09/24 at 1155, For 1 dose, If ordered PRN for pain, nurse is permittedto administer this medication for higher pain scores based on patient preference? Yes, Indications:painStart: 23-68-1103mzue 1 tablet by mouth every four hours as needed5 mg, oral, Every 4 hours PRN, pain mild (1-3), first line, Starting on Shira 02/06/24 at 1704, Recovery (only), When able to take oral medications., If ordered PRN for pain, nurse is permitted to administer this medication for higher pain scores based on patient preference? YesStart: 01-30-2024 End: 55-63-6738cfiq 1 tablet by mouth every six hours [...] tablet 01/30/2024 02/06/2024 Discontinued (Stop Taking at Discharge)Start: 01-28-2024 End: 60-59-7999qrnq 2 tablets by mouth every six hours for painoxyCODONE (Roxicodone) 5 mg immediate release tablet Indications: Acute left-sided low back pain with left-sided sciatica Take 2 tablets (10 mg) by mouth every 6 hours if needed for severe pain (7 - 10). 9 tablet 01/28/2024 11:14 AM EST 01/28/2024 ActiveStart: 01-27-2024 End: 58-40-3736qejh 1 tablet by mouth every eight hours as xemvgj05 mg, oral, Every 8 hours PRN, pain moderate (4-6), second line, Starting on Sat01/27/24 at 1042, If ordered PRN for pain, nurse is permitted to administer this medication for higher pain scores based on patient preference? YesStart: 01-21-2024 End: 41-81-4840hmxw 2 tablets by mouth every eight hours for painoxyCODONE (Roxicodone) 5 mg immediate release tablet Indications: Acute left-sided low back pain with left-sided sciatica Take 2 tablets (10 mg) by mouth every 8 hours if needed for severe pain (7 - 10) for up to 3 days. 9 tablet 01/21/2024 01/28/2024 DiscontinuedStart: 01-10-2024 End: 29-88-6676kzwb 5 mg by mouth once as needed for pain5 mg, oral, Once, On Sat01/10/24 at 2210, For 1 dose, If ordered PRN for pain, nurse is permitted to administer this medication for higher pain scores based on patient preference? YesStart: 42-30-6840blon 1 tablet by mouth every four hours as smcjqi08 mg, oral, Every 4 hours PRN, pain moderate (4-6), first line, Starting on Sat01/06/24 at 2200Start: 01-04-2024 End: 46-22-8284dtcz 1 tablet by mouth every four hours in the evening for pain oxyCODONE (Roxicodone) 10 mg immediate release tablet Indications: Left leg weakness Take 1 tablet (10 mg) by mouth every 4 hours if needed for severe pain (7 - 10). 10 tablet 01/08/2024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 provider]Onset: 83-13-9738XsvcniyfYuqccdtf codes; unclassified (20 sources)Chronic back syaa72-18-1013YyppjpejXxzgkayu codes; unclassified (1 source)Past history of procedure; Translations: [Other specified postprocedural states]Onset: 61-55-7369HqnakvikNuqiwxxq codes; unclassified (2 sources)Localized edema; Translations: [Localized edema]Onset: 01-23-2024 EpisodicResidual codes; unclassified (2 sources)History of lumbar discectomy; Translations: [Other specified postprocedural states]83-19-5676SulztuamRmuhkdho codes; unclassified (13 sources)Edema; Translations: [Edema, unspecified]Onset: EpisodicResidual codes; unclassified (3 sources)Pain; Translations: [Pain, unspecified]Onset: EpisodicScreening and history of mental health and substance abuse codes (17 sources)Patient encounter status; Translations: [Encounter for screening for depression]EpisodicSkin and subcutaneous tissue infections (2 sources)Cellulitis; Translations: [Cellulitis, unspecified]Onset: 09-25-2023 EpisodicSkull and face fractures (20 sources)Fracture of tooth ; Translations: [Fracture of tooth (traumatic), initial encounter for closed fracture]31-45-2055YxemcodlLetlcbreqdv; intervertebral disc disorders; other back problems (20 sources)Degeneration of lumbar intervertebral disc; Translations: [Other intervertebral disc degeneration, lumbar region]Onset: 03-30-2021 Resolved: 83-26-7395MdjdrcwCzjgutyznbb; intervertebral disc disorders; other back problems (20 sources)Radiculopathy, lumbar region; Translations: [Low back pain]Onset: 02-15-2021 Resolved: 07-85-6512GeeincdjQnqxcqh and strains (20 sources)Sprain of ankle; Translations: [Sprain of unspecified ligament of right ankle, initial encounter]Onset: 362082-71-4334VplubnyjXsjucbdlz- related disorders (20 sources)Smoker; Translations: [Nicotine dependence, unspecified, uncomplicated]Onset: 399630-51-1737UjdxcgdWktcbsn on above:Added secondary to documentation in Social History.Substance-related disorders (20 sources)Continuous opioid dependence; Translations: [Opioid use, unspecified, uncomplicated]66-26-4443XwqxwagbXcefutxzouzh (3 sources)Fitting and adjustment of other gastrointestinal appliance and device; Translations: [Fitting and adjustment of other gastrointestinal appliance and device]Unclassified (5 sources)Other low back pain; Translations: [Other low back pain]Onset: 92-73-9016Ouoliipmubkc (1 source)CONTACT W/AND (SUSP) EXPOS COVID-19; Translations: [CONTACT W/AND (SUSP) EXPOS COVID-19]Onset: 53-56-7733Faxucegtelkv (15 sources)Low back pain, unspecified; Translations: [Low back pain, unspecified]Onset: 40-62-2307Wyrxkflgpczw (20 sources)Drug therapy wpunzww14-94-3595Euiwlddfbuti (20 sources)Patient encounter yjyxsw31-35-7156Mcsblnandmps (1 source)Presented to ED with a complaint of Post Op, Back Ofyz12-49-3388 Unclassified (4 sources)Left leg wzqhujkh84-87-7018Gqcptogbtfhd (1 source)Finding of sensation of lower pfzp73-22-2023Tcsliilbwlki (1 source)NO IOOG92-74-0233Nknhqcxqapom (1 source)Midline low back pain without sciatica, unspecified chronicity; Translations: [Midline low back pain without sciatica, unspecified chronicity] Onset: 15-88-7342Kgnazgyhdtkn (4 sources)No additional problems on fileUnclassified (1 source)Vertebrogenic low back pain; Translations: [Vertebrogenic low back pain]Onset: 75-26-1751Earbxkrfzcml (2 sources)Hepatic fibrosis, advanced fibrosis; Translations: [Hepatic fibrosis, advanced fibrosis]Onset: 98-96-7696Ttivizepnbby (1 source)Other intervertebral disc degeneration, lumbar region with discogenic back pain and lower extremitypain; Translations: [Other intervertebral disc degeneration, lumbar region with discogenic back pain and lower extremity pain] Onset: 57-72-3491Mitppzrfjkbb (2 sources)Acute left-sided low back pain with left-sided sciaticaOnset: 18-44-0479Xnfiqhqhiksq (2 sources)lower back pain, chronicOnset: 36-93-8471Umslwyh tract infections (20 sources)Urinary tract infectious disease; Translations: [Urinary tract infection, site not specified]Onset: 794842-63-6958VclyipkxBmjxn infection (20 sources)Disease caused by 2019-nCoV; Translations: [COVID-19]Onset: 899295-96-3894SvhnemdkHcnpm infection (20 sources)Disease caused by 2019-nCoVOnset: 064938-89-9309 Past or Other Problems Problem ClassificationProblemDateDocumented DateEpisodic/ChronicAbdominal pain (20 sources)Right upper quadrant pain; Translations: [Right upper quadrant pain] Onset: 875230-64-4499JtivbtwcH Codes: Fall (8 sources)Fall; Translations: [Unspecified fall, initial encounter]Onset: 018800-04-5779KvkrggcbYpbxtods of upper limb (20 sources)Closed fracture of trapezoidal bone of wrist; Translations: [Displaced fracture of trapezoid [smaller multangular], right wrist, initial encounter for closed fracture]Onset: 05-11-2023 Resolved: 61-45-2990RnmahppyYtozkf and vomiting (1 source)Nausea with vomiting, unspecified; Translations: [Nausea with vomiting, unspecified]Onset: 77-64-7558UjfjrltfNeeng aftercare (2 sources)Encounter for other specified aftercare; Translations: [Encounter for other specified aftercare]Onset: 41-76-7982VgrroummOkhvw connective tissue disease (20 sources)Neuropathic pain; Translations: [Neuralgia and neuritis, unspecified]Onset: 746969-79-1141UjqrypukTmndk connective tissue disease (11 sources)Other symptoms and signs involving the musculoskeletal system; Translations: [Other musculoskeletalsymptoms referable to limbs]Onset: 059426-54-0107MjimsehuTfbpy connective tissue disease (4 sources)Neuralgia and neuritis, unspecified; Translations: [Neuralgia and neuritis, unspecified]Onset: 65-06-6511MjxkxhmjWqnjr fractures (2 sources)Unspecified fracture of sacrum, initial encounter for closed fracture; Translations: [Unspecified fracture of sacrum, initial encounter for closed fracture (Multi)]Onset: 94-71-4225ZijcicniAzooh gastrointestinal disorders (2 sources)Diarrhea, unspecified; Translations: [DIARRHEA UNSPECIFIED]Onset: 24-49-9477FoozvwzkJanuf infections; including parasitic (20 sources)Patient cured; Translations: [Personal history of other infectious and parasitic diseases]Onset: 666085-56-4094YesratffHxavw infections; including parasitic (13 sources)Lyme diseaseOnset: 048096-10-0368XaeazratKylis infections; including parasitic (4 sources)Personal history of other infectious and parasitic diseases; Translations: [Personal history of other infectious and parasitic diseases] Onset: 73-80-4401NviqoruoAlzws injuries and conditions due to external causes (1 source)Local infection of wound; Translations: [Other injury of unspecified body region, initial encounter]43-83-2922HkacdiioGlvzs injuries and conditions due to external causes (1 source)Closed injury of head; Translations: [Unspecified injury of head, initial encounter]52-78-7006TaxpntvmGlghw injuries and conditions due to external causes (2 sources)Unspecified injury of head, initial encounter; Translations: [Unspecified injury of head, initial encounter]Onset: 59-15-8513RwmaujysUndzi nervous system disorders (8 sources)Other acute postprocedural pain; Translations: [Other acute postprocedural pain]Onset: 41-20-6261GzlkidplWtnqr nervous system disorders (2 sources)Other disturbances of skin sensation; Translations: [Other disturbances of skin sensation]Onset: 99-74-3246GyebpzfoUsjqd nervous system disorders (2 sources)Paresthesia of skin; Translations: [Paresthesia of skin]Onset: 12-86-2117SadnqllcFfpca non-traumatic joint disorders (1 source)Pain in left hipOnset: 02-15-2021 Resolved: 80-13-1956QmtauwvrRxxtp skin disorders (2 sources)Other skin changes; Translations: [Other skin changes]Onset: 26-87-0691YvskmlciCwnkamrt codes; unclassified (3 sources)Insomnia; Translations: [Insomnia]EpisodicResidual codes; unclassified (2 sources)Other specified postprocedural states; Translations: [Other specified postprocedural states]Onset: 97-25-3163VetjxbdeIabfnddgcfo injury; contusion (12 sources)Superficial injury of trunk; Translations: [Contusion of lower back and pelvis, initial encounter]Onset: 05-41-1506LjzewllrNfxmyovhghkk (1 source)Other low back pain M54.59Onset: 03-30-2021 Resolved: 87-70-4061Hmlixopbvklf (1 source)Acute left-sided low back pain, unspecified whether sciatica present M54.50Unclassified (14 sources)Myofascial low back pain; Translations: [Other low back pain] Unclassified (20 sources)Onset: 01-15-2023 Resolved: 770998-08-8786Etxjtffflwjy (20 sources)Leakage of wound after surgical procedure; Translations: [Drainage from surgical wound]24-40-5248Lzspklitvptj (8 sources)Low back pain, unspecified; Translations: [Low back pain, unspecified]Onset: 51-38-2961Guheqyfhtkpc (1 source)Vertebrogenic low back pain; Translations: [Vertebrogenic low back pain]Onset: 06-60-1258Dpkkbmoyheqj (2 sources)Hepatic fibrosis, advanced fibrosis; Translations: [Hepatic fibrosis, advanced fibrosis]Onset: 24-74-5669Egjuhjbbyjgl (1 source)Other intervertebral disc degeneration, lumbar region with discogenic back pain and lower extremitypain; Translations: [Other intervertebral disc degeneration, lumbar region with discogenic back pain and lower extremity pain] Onset: 01-06-2024 Results Test NameValueInterpretationReference RangeFacilityED Clinical Summaryon [id number] Clinical SummaryED Clinical Summary [address] [address] ED Clinical Summary Person Information Name: JERAD TRACY [place] Age: 49 Years : 1975 Sex: Female Language: Malagasy PCP: FLOR JONES Marital Status: MRN: [id number] Visit Id: Visit Reason: Back pain; BACK PAIN Speciality: Acuity: 4 Enc Type: Emergency Med Service: Emergency Arrival: 02/03/2025 09:02:55 Discharge: 02/03/2025 09:39:49 LOS: 000 00:37 Checkin: 02/03/2025 09:02:55 Checkout: 02/03/2025 09:39:49 Dispo Type: Home (Routine DC) EVENTS: Event Name Event Status Request Date/Time Start Date/Time Complete Date/Time Arrive Complete 02/03/2025 09:02:55 02/03/2025 09:02:55 02/03/2025 09:02:55 Document Home Meds Request 02/03/2025 09:02:55 Triage Complete 02/03/2025 09:02:55 02/03/2025 09:06:29 02/03/2025 09:06:29 Bed Assign Complete 02/03/2025 09:03:43 02/03/2025 09:03:43 02/03/2025 09:03:43 Dr Exam Complete 02/03/2025 09:03:43 02/03/2025 09:05:47 02/03/2025 09:05:47 RN Exam Complete 02/03/2025 09:03:43 02/03/2025 09:10:10 02/03/2025 09:10:10 Registration Complete 02/03/2025 09:05:47 02/03/2025 09:26:58 02/03/2025 09:26:58 Meds Admin Complete 02/03/2025 09:22:18 02/03/2025 09:32:49 Discharge Complete 02/03/2025 09:24:42 02/03/2025 09:39:53 02/03/2025 09:39:53 Reg Complete Request 02/03/2025 09:26:58 Reg Bed Request Complete 02/03/2025 09:26:58 02/03/2025 09:26:58 02/03/2025 09:26:58 Transfer Complete 02/03/2025 09:39:53 02/03/2025 09:39:53 02/03/2025 09:39:53 ADDRESS: [address] [place] [address] [facility] [id number] PHYS DOC NOTES: MEDICAL INFORMATION: Prescriptions Given: New Medications [facility], [address] [place], [place] [id number], [phone] predniSONE (predniSONE 50 mg Tab) 1 Tablets By Mouth every day for 7 Days. Refills: 0. Medications to Continue with No Changes Other Medications atomoxetine (Strattera 40 mg Cap) 1 Capsules By Mouth once a day (in the morning). Refills: 5. cyclobenzaprine (cyclobenzaprine 10 mg Tab) 1 Tablets By Mouth 3 times a day as needed for spasm. Refills: 1. duloxetine (Cymbalta 60 mg oral delayed release capsule) 1 Capsules By Mouth every day. Refills: 5. duloxetine (duloxetine 30 mg oral delayed release capsule) 1 Capsules By Mouth every day. Refills: 11. hydrochlorothiazide (hydrochlorothiazide 25 mg Tab) 1 Tablets By Mouth every day. Refills: 3. ibuprofen (ibuprofen 800 mg Tab) 1 Tablets By Mouth 3 times a day. Refills: 0. Misc Prescription (handicap placard) dispense 1 handicap placard. expires: 11/03/2034. Refills: 0. omeprazole (omeprazole 40 mg Cap-DR) 1 Capsules By Mouth 2 times a day. Refills: 3. oxycodone (oxyCODONE 10 mg ER Tab) 1 Tablets By Mouth every 12 hours as needed severe pain. 1 w supply pain management provider [place]. Refills: 0. zolpidem (Ambien 10 mg Tab) 1 Tablets By Mouth once a day (at bedtime) as needed for sleep. Refills: 5. PATIENT EDUCATION INFORMATION: Instructions: Chronic Back Pain; Acute Back Pain, Adult Follow up: With: Address: When: KRISTAN LAU [address] [place] [address] Business (1) In 3 days 02/06/2025 Comments: Call Dr for diagnosis based follow up DIAGNOSIS: Low back painNormalFisher Sal Medical CenterED Note-Physicianon [id number] Note-PhysicianED Note-Physician Basic Information Time Seen: Robert Taylor PA-C 01/31/2025 11:44 Chief Complaint patient presents with chronic back pain d/t long car ride History of Present Illness 49-year-old female comes to the ED for evaluation of back pain. Longstanding history of chronic back pain. She presents exacerbation today that she attributes to changes in the weather as well as prolonged time driving in her car. No associated paresthesias or saddle anesthesia. No lower extremity w eakness. No bowel or bladder incontinence or retention. No dysuria or hematuria. No associated abdominal pain, nausea, vomiting, fever or chills. Review of Systems A 10 point review of systems is negative except as noted above. Medical and Surgical History: Reviewed and noted Social history: Lives at home Tobacco: Denies Physical Exam Vitals & Measurements T: 36.8 ???C(Oral) HR: 94(Peripheral) RR: 18 BP: 155/88 SpO2: 98% HT: 160.02 cm WT: 115 kg BMI: 44.91 Nurses notes and vital signs reviewed and patient is not hypoxic. General: The patient appears well, resting comfortably. Skin: Warm, dry. Head: Atraumatic. Neck: No JVD. Eye: Normal conjunctiva. Ears, Nose, Mouth, and Throat: Moist mucous membranes. Cardiovascular: Strong distal pulses. Chest wall: Respiratory: Respirations are nonlabored. Back: Normal range of motion. Musculoskeletal: Normal ROM with no gross deformity. Gastrointestinal: Urological: Neurological: Awake and alert. No focal deficits. Follows commands. Psychiatric: Cooperative. Medical Decision Making Patient with acute on chronic back pain. Well-known to department with frequent ED visits for pain exacerbations. She is well-appearing today. No evidence of vascular compromise. Difficulty ambulation. She is medicated here for pain discharged with follow-up with her PCP and pain management physician. Patient was encouraged to return to the ED if symptoms worsen or change. Assessment/Plan Chronic back pain (M54.9: Dorsalgia, unspecified) Other chronic pain (G89.29: Other chronic pain) Orders: morphine, 8 mg = 2 mL, Injection, IntraMuscular, Once, Stop date 01/31/25 11:59:00 EST, STAT, Startdate 01/31/25 11:59:00 EST, 01/31/25 11:59:00 EST Disposition Plan Patient Discharge Condition Disposition: Discharged home Condition: Improved and stable Counseled: Patient and/or family were counseled to workup, results, treatment plan and follow-up recommendations Discharge Prescription List Prescriptions No active prescription medications Follow-up With When Contact Information KRISTANRadha LAU In 3 days 02/03/2025 EST Additional Instructions: Patient Education Chronic Back Pain Attestation I performed a substantive part of the MDM during the patient???s E/M visit. I personally made or approved the documented management plan and acknowledge its risk of complications. (Independent Interpretation) My (EKG/X-Ray/US/CT) interpretation as above. (Discussion) Management/test interpretation discussed with APC. This report was transcribed using voice recognition software. Every effort was made to ensure accuracy, however, inadvertently computerized bill recapitulation clerk mistakes may be present. Appropriate healthcare PPE was used in evaluating this patient. Problem List/Past Medical History Ongoing Arthritis of first carpometacarpal joint of right hand Bipolar disorder Chronic back pain Chronic hepatitis C Closed fracture of trapezoidal bone of wrist COVID-19 Diarrhea Disease of liver Drug therapy finding Edema Elevated blood pressure reading Encounter for screening mammogram for breast cancer Fatigue HTN (hypertension) Migraine Morbid obesity with BMI of 45.0-49.9, adult Obesity Screening for cardiovascular condition Smoker Smoker Tendonitis of right wrist Weight gain Wellness examination Historical Bipolar Continuous opioid dependence Hepatitis C Liver disease Lyme disease Migraines Procedure/Surgical History Hysterectomy (2010), History of cholecystectomy, Hysterectomy, lap x 7, Tonillectomy with adenoids. Medications Inpatient No active inpatient medications Home Ambien 10 mg Tab, 10 mg= 1 tab(s), Oral, Once a day (at bedtime), PRN, 5 refills cyclobenzaprine 10 mg Tab, 10 mg= 1 tab(s), Oral, TID, PRN, 1 refills Cymbalta 60 mg oral delayed release capsule, 60 mg= 1 cap(s), Oral, Daily, 5 refills duloxetine 30 mg oral delayed release capsule, 30 mg= 1 cap(s), Oral, Daily, 11 refills handicap placard, See Instructions hydrochlorothiazide 25 mg Tab, 25 mg= 1 tab(s), Oral, Daily, 3 refills hydrOXYzine hydrochloride 25 mg Tab, 25 mg, Oral, Once, 4 refills ibuprofen 800 mg Tab, 800 mg= 1 tab(s), Oral, TID omeprazole 40 mg Cap-DR, 40 mg= 1 cap(s), Oral, BID, 3 refills oxyCODONE 10 mg ER Tab, 10 mg= 1 tab(s), Oral, q12hr, PRN Zepbound 2.5 mg/0.5 mL subcutaneous solution, 2.5 mg, SubCutaneous, qWeek, 3 refills Zepbound 2.5 mg/0 (more content not included)...[facility] HospitalComment on above:Result Comment: Electronically Signed By: Brandon MILES, Robert\.br\Date and Time Signed: 02/01/2512:00 EST\.br\Electronically Co-Signed By: Cameron Rene DO\.br\Date and Time Co-Signed: 02/03/25 16:44 ESTED Note-PhysicianED Note-Physician Basic Information Time Seen: Landon Tidwell PA-C 02/03/2025 09:05 Chief Complaint pt reports back pain flare up, has a pain pump, not touching her pain. History of Present Illness 49-year-old female reports to ED with concerns of back pain. Reports her back pain is flaring up and is very painful. Reports that she has a pain pump is not helping with her pain right now. Discussed with to see her pain management doctor on February 22. She reports no new symptoms just having a lot of pain right now. Denies any bowel or bladder problems. No saddle anesthesias. She reports that she was trying to get in with her PCP was not able to get her prescribed any medications. Would like something for relief. Review of Systems No other aggravating or relieving factors no other associated symptoms no other prior treatments orcomplaints. Family: Reviewed and noncontributory Social: lives at home Review of systems negative unless otherwise specified in the HPI. Physical Exam Vitals & Measurements T: 36.9 ???C(Oral) HR: 103(Peripheral) RR: 20 BP: 156/78 SpO2: 98% HT: 160 cm WT: 121 kg BMI: 47.27 General: The patient appears well and in no apparent distress. Patient is resting comfortably in chair. Afebrile Skin: Warm, dry, no pallor noted. Head: Normocephalic, atraumatic Neck: No JVD Eye: PERRLA, EOMI ENT: Moist mucus membranes Cardiovascular: Regular rate. normal peripheral perfusion. Pedal pulses +2 bilaterally Respiratory: No respiratory distress. no accessory muscle use. no obvious audible wheezing Chest Wall: no deformity Musculoskeletal: normal ROM, no deformity, no swelling. Diffuse lower lumbar tenderness. No obviousdeformity or step-off felt GI: No obvious distention Neurological: A&O. moves all extremities equal strength and symmetry Psychiatric: Cooperative and appropriate Medical Decision Making A 49-year-old female reports to ED with acute flareup of her chronic back pain. No new symptoms. Does have some shoulder pain. Exam negative for any signs of cauda equina syndrome. No saddle anesthesias. No bowel or bladder deficits. Due to concerns, was given a dose of Toradol and morphine here. Prescription for prednisone at home. Discussed follow-up with pain management. She was understanding.Follow-up with your primary care provider in 3 to 5 days. If symptoms worsen, do not improve, or new symptoms arise please report back to emergency department for further evaluation. The patient was understanding and agreeable to plan moving forward. Assessment/Plan Low back pain (M54.50: Low back pain, unspecified) Orders: ketorolac, 60 mg = 2 mL, Injection, IntraMuscular, Once, Stop date 02/03/25 9:21:00 EST, STAT, Start date 02/03/25 9:21:00 EST, 02/03/25 9:21:00 EST morphine, 8 mg = 2 mL, Injection, IntraMuscular, Once, Stop date 02/03/25 9:21:00 EST, STAT, Start date 02/03/25 9:21:00 EST, 02/03/25 9:21:00 EST predniSONE, 50 mg = 1 tab(s), Oral, Daily, X 7 day(s), # 7 tab(s), Refills(s) 0, Pharmacy: [id number], 160, cm, 02/03/25 9:06:00 EST, Height/Length Dosing, 121, kg, 02/03/25 9:06:00 EST, Weight Dosing Medications Administered Given ketorolac 60 mg/2 mL Injection, 60 mg, IntraMuscular morphine 4 mg/mL Inj, 8 mg, IntraMuscular Disposition Plan Patient Discharge Condition stable Discharge Disposition to home Discharge Prescription List Prescriptions Ambien 10 mg Tab, 10 mg= 1 tab(s), Oral, Once a day (at bedtime), PRN, 5 refills cyclobenzaprine 10 mg Tab, 10 mg= 1 tab(s), Oral, TID, PRN, 1 refills oxyCODONE 10 mg ER Tab, 10 mg= 1 tab(s), Oral, q12hr, PRN predniSONE 50 mg Tab, 50 mg= 1 tab(s), Oral, Daily Strattera 40 mg Cap, 40 mg= 1 cap(s), Oral, qAM, 5 refills Follow-up With When Contact Information KRISTAN LAU In 3 days 02/06/2025 EST [address] [place] [address]- Business (1) Additional Instructions: Call Dr for diagnosis based follow up Patient Education Chronic Back Pain Acute Back Pain, Adult Attestation Patient seen and evaluated by the physician construction assistant. Attending physician was present in the emergency department and supervised care. This visit was performed by both the physician and an APC. I performed all aspects of the MDM as documented. This report was transcribed using voice recognition software. Every effort was made to ensure accuracy, however, inadvertently computerized bill recapitulation clerk mistakes may be present. Appropriate healthcare PPE [...] (EKG/X-Ray/US/CT as applicable) interpretation as above. (Discussion) (more content not included)...[facility] Comment on above:Result Comment: Electronically Signed By: Landon Tidwell PA-C\.br\Date and Time Signed: 02/03/2513:57 EST\.br\Electronically Co-Signed By: Cameron Rene DO\.br\Date and Time Co-Signed: 02/03/25 16:42 ESTERyann Patient Summaryon [id number] Patient SummaryED Patient Summary [address] [address] Patient Discharge Instructions Person Information Name: JERAD TRACY Age: 49 Years Arrival Date: 02/03/2025 09:02:55 Discharge Diagnosis: Low back pain Primary Care Physician: FLOR JONES Provider Information Primary Provider: Advanced Dietetic Intern:Landon Tidwell PA-C The exam and treatment you received in the Emergency Department were for an urgent problem and are not intended as complete care. It is important that you follow up with a doctor, nurse practitioner,or physician???s construction assistant for ongoing care. If your symptoms become worse or you do not improve asexpected and you are unable to reach your usual health care provider, you should return to the Emergency Department. We are available 24 hours a day. JERAD TRACY has been given the following list of patient education materials, prescriptions andfollow-up instructions: Follow-up Instructions: With: Address: When: KRISTAN LAU [address] [facility] [address] [place] [id number] [facility] (1) In 3 days 02/06/2025 Comments: Call Dr for diagnosis based follow up In the event that this physician does not participate in your insurance network, please consult with your insurance company to find a nearby participating provider. Patient Education Materials: Chronic Back Pain; Acute Back Pain, Adult A MESSAGE TO ALL PATIENTS REGARDING OPIOIDS PRESCRIPTION OPIOIDS: WHAT YOU NEED TO KNOW Prescription opioids can be used to help relieve jfcqjwfv-ok-jwhbqn pain and are often prescribed following a [...] guidance from the Food and Drug Administration (www.fda.gov/Drugs/ResourcesForYou). ??? Visit www.cdc.gov/drugoverdose to learn about the risks of opioids abuse and overdose. ??? If you believe you may be struggli (more content not included)...[facility] Summaryon [id number] Visit SummaryAmbulatory Visit Summary JERAD TRACY :1975 Visit Date:02/02/2025 Ambulatory Visit Instructions Your Diagnosis Chronic back pain ADHD, ADHD BMI 45.0-49.9, adult Smoker Morbidly obese Chronic pain, Other chronic pain Insomnia Your Care Team Attending Physician - FLOR JONES Primary Care Physician - FLOR JONES This Is Your Medications List [facility] [place]ic[place] placard) atomoxetine (Strattera 40 mg Cap) cyclobenzaprine (cyclobenzaprine 10 mg Tab) duloxetine (Cymbalta 60 mg oral delayed release capsule) duloxetine (duloxetine 30 mg oral delayed release capsule) hydrochlorothiazide (hydrochlorothiazide 25 mg Tab) ibuprofen (ibuprofen 800 mg Tab) omeprazole (omeprazole 40 mg Cap-DR) oxycodone (oxyCODONE 10 mg ER Tab) zolpidem (Ambien 10 mg Tab) [Image Removed: STOP]Stop taking these medications hydrOXYzine (hydrOXYzine hydrochloride 25 mg Tab) ondansetron (Zofran 4 mg Tab) Procedures Performed Administration of drug or medicament via intrathecal route (11/27/2024), Hysterectomy (2010), History of cholecystectomy, Hysterectomy, lap x 7, Tonillectomy with adenoids. Discharge Vitals Heart Rate (Peripheral) 79 Respiratory Rate 18 Blood Pressure 142/80 Height 160 cm Height 63 in Weight 121.6 kg Weight 268.082 lb BMI 47.5 What to do next Scheduled Follow-Up Appointments Saturday. 2025 10:40 AM EST With: FLOR JONES Where: [facility] [place] [address] [facility] [address] [place] [address]- Medications What How Much When Why Instructions New atomoxetine (Strattera 40 mg Cap) 1 Capsules By Mouth Once a day (in the morning) ADHD Refills:5 Pickup at [facility] Changed oxycodone (oxyCODONE 10 mg ER Tab) 1 Tablets By Mouth Every 12 hours as needed for severe pain Chronic pain 1 w supply pain management provider out of the country Pickup at [facility] Unchanged cyclobenzaprine (cyclobenzaprine 10 mg Tab) 1 Tablets By Mouth 3 times a day as needed for for spasm Muscle spasm Pickup at [facility] Unchanged duloxetine (Cymbalta 60 mg oral delayed release capsule) 1 Capsules By Mouth Every day Unchanged duloxetine (duloxetine 30 mg oral delayed release capsule) 1 Capsules By Mouth Every day Chronic back pain Unchanged hydrochlorothiazide (hydrochlorothiazide 25 mg Tab) 1 Tablets By Mouth Every day HTN (hypertension) Unchanged ibuprofen (ibuprofen 800 mg Tab) 1 Tablets By Mouth 3 times a day Unchanged Misc Prescription (handicap placard) See instructions Chronic back pain Obesity ASCVD (arteriosclerotic cardiovascular disease) Anxiety GERD (gastroesophageal reflux disease) dispense 1 handicap placard. expires: 2034 Unchanged omeprazole (omeprazole 40 mg Cap-DR) 1 Capsules By Mouth 2 times a day GERD (gastroesophageal reflux disease) Unchanged zolpidem (Ambien 10 mg Tab) 1 Tablets By Mouth Once a day (at bedtime) as needed for for sleep Insomnia Pickup at [facility] Pharmacy Information [facility]: [address] [place], [place] [id number] [phone] What How Much When Why Comments Stop Taking hydrOXYzine (hydrOXYzine hydrochloride 25 mg Tab) 25 Milligram By Mouth Once Anxiety Stop Taking ondansetron (Zofran 4 mg Tab) 1 Tablets By Mouth Every 8 hours as needed for Nausea/Vomiting Nausea Allergies Lyrica (Makes legs swell) Tylenol (Unknown) Vicodin (Hives) gabapentin (Migraines) nabumetone (Rash) penicillin (Hives) Problems Ongoing - Any problem that you are currently receiving treatment for. ADHD Arthritis of first carpometacarpal joint of right hand Bipolar disorder Chronic back pain Chronic hepatitis C Closed fracture of trapezoidal bone of wrist COVID-19 Diarrhea Disease of liver Drug therapy finding Edema Elevated blood pressure reading Encounter for screening mammogram for breast cancer Fatigue HTN (hypertension) Migraine Morbid obesity with BMI of 45.0-49.9, adult Obesity Screening for cardiovascular condition Smoker Smoker Tendonitis of right wrist Weight gain Wellness examination Historical - Any problem that you are no longer receiving treatment for. Bipolar Continuous opioid dependence Hepatitis C Liver disease Lyme disease Migraines Patient Survey You may receive a survey via text or e-mail asking about your office visit. Please share your experience with us by completing your survey. We appreciate your feedback and thank you for choosing us for your care. Patient Portal You may access all of your results and other medical record information on our secure patient portal. If you are not signed up for this yet, please contact [employer] at [phone] to get signed up today. Language Information Language assistance services are available as need (more content not included)...[facility] Medicine Office/Clinic Note on [id number]Clinic Note Chief Complaint 3 Month F/U on medications HPI Staff Here For: 3 month medication review Concerns: Patient feels that celebrex is not working for her she would like to have something with a mood elevator/anxiety medication built in; Would like a refill on her oxycodone and ambien; wants to discuss new weight loss medication as her other Dr. is recommending gastric bypass but she would like to try medications first but she states adipex doesn't work. History of Present Illness Jerad is a 49 year old female who presents for a routine follow up. She feels like the cymbalta is not effective enough for her anxiety. She feels the cymbalta is effective for her mood, however, she feels like she is all over the place with her mood and thoughts. She feels like she has ADHD. I am going to start starttera to see if this helps with her disorganization and racing thoughts. Pain: she is seeing Dr Calero for pain management. She reports he is out of the country on vacation. She needs me to send in a temp supply of oxycodone until he returns. She is going to get a different medication in her pain pump in Feb as she reports the morphine is not working. Review of Systems PHQ Score Initial Depression Screen Score: 0 SCORE Physical Exam Vitals & Measurements HR: 79(Peripheral) RR: 18 BP: 142/80 SpO2: 99% HT: 160 cm HT: 63 in WT: 121.6 kg WT: 268.082 lb BMI: 47.5 General: alert, no acute distress ENMT: TM's clear, oral mucosa moist, no pharyngeal erythema or exudate Cardiovascular: regular rate and rhythm, normal peripheral perfusion Respiratory: Lungs CTA, respirations non labored Extremities: no deformity, no trauma Neurological: oriented x 4, LOC appropriate for age, CN II-XII intact, motor strength equal & normal bilaterally, sensation equal & normal bilaterally, speech normal Assessment/Plan 1. Chronic back pain (M54.9: Dorsalgia, unspecified) refill oxycodone temp supply continue with pain management 2. ADHD, (F90.9: Attention-deficit hyperactivity disorder, unspecified type)ADHD start strattera Ordered: atomoxetine, 40 mg = 1 cap(s), Oral, qAM, # 30 cap(s), Refills(s) 5, Pharmacy: [facility], 160, cm, 02/02/25 15:15:00 EST, Height/Length Dosing, 121.6, kg, 02/02/25 15:15:00 EST, Weight Dosing 3. BMI 45.0-49.9, adult (Z68.42: Body mass index [BMI] 45.0-49.9, adult) stable Ordered: tirzepatide, 2.5 mg, SubCutaneous, qWeek, # 2 mL, Refills(s) 1, Pharmacy: [facility], 160, cm, 11/03/24 15:45:00 EDT, Height/Length Dosing, 123.2, kg, 11/03/24 15:45:00 EDT, Weight Dosing 4. Smoker (F17.200: Nicotine dependence, unspecified, uncomplicated) stable Ordered: 1126F Pain severity quantified; no pain present Body Mass Index (BMI) documented 3008F Current tobacco smoker 1034F Depression Screening Negative 3352F Functional status assessed 1170F Medication list documented in medical record 1159F Most recent diastolic blood pressure 80-89 mm Hg 3079F Most recent systolic blood pressure >= 140 mm Hg 3077F Patient screen for fall risk: no falls in last year or 1 fall with no injury in last year 1101F 5. Morbidly obese (E66.01: Morbid (severe) obesity due to excess calories) stable Ordered: 1126F Pain severity quantified; no pain present Body Mass Index (BMI) documented 3008F Current tobacco smoker 1034F Depression Screening Negative 3352F Functional status assessed 1170F Medication list documented in medical record 1159F Most recent diastolic blood pressure 80-89 mm Hg 3079F Most recent systolic blood pressure >= 140 mm Hg 3077F Patient screen for fall risk: no falls in last year or 1 fall with no injury in last year 1101F Chronic pain, (G89.29: Other chronic pain)Other chronic pain Ordered: oxycodone, 10 mg = 1 tab(s), Oral, q12hr, PRN severe pain, 1 w supply pain management provider out of the country, # 14 tab(s), Refills(s) 0, Pharmacy: [facility], 160, cm, 02/02/25 15:15:00 EST, Height/Length Dosing, 121.6, kg, 02/02/25 15:15:0... Insomnia (G47.00: Insomnia, unspecified) Ordered: zolpidem, 10 mg = 1 tab(s), Oral, Once a day (at bedtime), PRN for sleep, # 30 tab(s), Refills(s) 5, Pharmacy: [facility], 160, cm, 02/02/25 15:15:00 EST, Height/Length Dosing, 121.6,kg, 02/02/25 15:15:00 EST, Weight Dosing Orders: cyclobenzaprine, 10 mg = 1 tab(s), Oral, TID, PRN for spasm, # 60 tab(s), Refills(s) 1, Pharmacy: [facility], 160, cm, 02/02/25 15:15:00 EST, Height/Length Dosing, 121.6, kg, 02/02/2515:15:00 EST, Weight Dosing tirzepatide, 2.5 mg, SubCutaneous, qWeek, # 2 mL, Refills(s) 3, Pharmacy: [facility], 160, cm, 07/21/24 9:58:00 EDT, Height/Length Dosing, 126.6, kg, 07/21/24 9:58:00 EDT, Weight Dosing Follow-up No qualifying data available Problem List/Past Medical History Ongoing ADHD Arthritis of first carpometacarpal joint of right hand Bipolar (more content not included)...[facility]Result Comment: Electronically Signed By: FLOR JONES\.rufino\Date and Time Signed: 02/02/25 15:48 ESTED Prov Noteon [id number] Prov NoteHPI: 02/01/2025, Time: @NOWNR@ Jerad Tracy is a 49 y.o. female presenting to the ED for acute on chronic left-sided back pain, beginning specially last few days ago. The complaint has been constant, moderate in severity, and worsened by changing position. No numbness of the legs. No fever chills or fatigue and no recent injury ROS: Pertinent positives and negatives are stated within HPI, all other systems reviewed and are negative. PAST HISTORY Past Medical History: @[facility]@ Past Surgical History: has a past surgical history that includes Hysterectomy; Cholecystectomy; Tympanostomy tube placement; Tonsillectomy and adenoidectomy; Back surgery; and Bunionectomy (Bilateral). Social History: reports that she has been smoking cigarettes. She started smoking about 31 years ago. She has a 15.5 pack-year smoking history. She has never used smokeless tobacco. She reports that she does not drink alcohol and does not use drugs. Family History: family history is not on file. The patient's home medications have been reviewed. Allergies: Diclofenac, Gabapentin, Hydrocodone, Hydrocodone-acetaminophen, Penicillins, Pregabalin, Tylenol [acetaminophen], and Nabumetone RESULTS All laboratory and radiology results have been personally reviewed by myself LABS: No results found for this or any previous visit. RADIOLOGY: Interpreted by Radiologist. No orders to display NURSING NOTES AND VITALS REVIEWED The nursing notes within the ED encounter and vital signs as below have been reviewed. BP (!) 144/84 (BP Location: Left arm, Patient Position: Sitting) Pulse 90 Temp 97.9 degrees F (36.6 degrees C) (Oral) Resp 18 Ht 5' 3 Wt 115.7 kg (255 lb) LMP (LMP Unknown) SpO2 99% BMI 45.17 kg/m Oxygen Saturation Interpretation: Normal PHYSICAL EXAM Constitutional/General: Alert and oriented x3, well appearing, non toxic in moderate apparent discomfort Head: NC/AT Eyes: PERRL, EOMI Mouth: Oropharynx clear, handling secretions, no trismus Neck: Supple, full ROM, no meningeal signs Pulmonary: Lungs clear to auscultation bilaterally, no wheezes, rales, or rhonchi. Not in respiratory distress Cardiovascular: Regular rate and rhythm, no murmurs, gallops, or rubs. 2+ distal pulses Abdomen: Soft, non tender, non distended, Extremities: Moves all extremities x 4. Warm and well perfused Skin: warm and dry without rash Neurologic: GCS 15, Psych: Normal Affect Low back: Moderate left-sided lumbosacral paraspinal tenderness to palpation and slight spasm straight leg raises 90 degrees bilaterally ED COURSE/MEDICAL DECISION MAKING Medications HYDROmorphone (DILAUDID) injection 1 mg (has no administration in time range) orphenadrine (NORFLEX) injection 60 mg (has no administration in time range) ondansetron (ZOFRAN-ODT) disintegrating tablet 4 mg (has no administration in time range) ketorolac (TORADOL) injection 30 mg (has no administration in time range) Medical Decision Making: Will provide pain control Counseling: The emergency provider has spoken with the patient and discussed today's results, in addition to providing specific details for the plan of care and counseling regarding the diagnosis and prognosis. Questions are answered at this time and they are agreeable with the plan. IMPRESSION AND DISPOSITION IMPRESSION 1. Chronic left-sided low back pain with left-sided sciatica DISPOSITION Disposition: discharged to home Patient condition is stable Summation Patient Course: Improved ED Medications administered this visit: Medications HYDROmorphone (DILAUDID) injection 1 mg (has no administration in time range) orphenadrine (NORFLEX) injection 60 mg (has no administration in time range) ondansetron (ZOFRAN-ODT) disintegrating tablet 4 mg (has no administration in time range) ketorolac (TORADOL) injection 30 mg (has no administration in time range) New Prescriptions from this visit: New Prescriptions ketorolac (TORADOL) 10 mg tablet Take 1 (one) tablet (10 mg total) by mouth 3 (three) times a day as needed for pain . cyclobenzaprine (FLEXERIL) 10 MG tablet Take 1 (one) tablet (10 mg total) by mouth 3 (three) times a day as needed for muscle spasms . Follow-up: Kristan Lau, WAIVER ANALYST [address] [place] [id number] In 3 days Final Impression: 1. Chronic left-sided low back pain with left-sided sciatica (Please note that portions of this note were completed with a v (more content not included)...Normal[facility] CenterED Clinical Summaryon [id number] Clinical SummaryED Clinical Summary [address] [address] ED Clinical Summary Person Information Name: JEARD TRACY [place] Age: 49 Years : 1975 Sex: Female Language: Malagasy PCP: FLOR JONES Marital Status: Visit Id: Visit Reason: Back pain; BACK PAIN Speciality: Acuity: 4 Enc Type: Emergency Med Service: Emergency Arrival: 01/31/2025 11:43:31 Discharge: 01/31/2025 12:16:57 LOS: 000 00:33 Checkin: 01/31/2025 11:43:31 Checkout: 01/31/2025 12:16:57 Dispo Type: Home (Routine DC) EVENTS: Event Name Event Status Request Date/Time Start Date/Time Complete Date/Time Arrive Complete 01/31/2025 11:43:31 01/31/2025 11:43:31 01/31/2025 11:43:31 Document Home Meds Request 01/31/2025 11:43:31 Triage Complete 01/31/2025 11:43:31 01/31/2025 11:47:58 01/31/2025 11:47:58 Bed Assign Complete 01/31/2025 11:44:17 01/31/2025 11:44:17 01/31/2025 11:44:17 Dr Exam Complete 01/31/2025 11:44:17 01/31/2025 11:44:48 01/31/2025 11:44:48 RN Exam Complete 01/31/2025 11:44:17 01/31/2025 11:49:06 01/31/2025 11:49:06 Registration Complete 01/31/2025 11:44:48 01/31/2025 11:45:47 01/31/2025 11:45:47 Reg Complete Request 01/31/2025 11:45:47 Reg Bed Request Complete 01/31/2025 11:45:47 01/31/2025 11:45:47 01/31/2025 11:45:47 Dr Exam Complete 01/31/2025 11:46:27 01/31/2025 11:46:27 01/31/2025 11:46:27 Registration Request 01/31/2025 11:46:27 Meds Admin Complete 01/31/2025 11:59:16 01/31/2025 12:07:45 Discharge Complete 01/31/2025 11:59:44 01/31/2025 12:17:16 01/31/2025 12:17:16 Transfer Complete 01/31/2025 12:17:16 01/31/2025 12:17:16 01/31/2025 12:17:16 ADDRESS: [address] [place] [phone] PHYS DOC NOTES: MEDICAL INFORMATION: Prescriptions Given: Medications to Continue with No Changes Other Medications cyclobenzaprine (cyclobenzaprine 10 mg Tab) 1 Tablets By Mouth 3 times a day as needed for spasm. Refills: 1. duloxetine (Cymbalta 60 mg oral delayed release capsule) 1 Capsules By Mouth every day. Refills: 5. duloxetine (duloxetine 30 mg oral delayed release capsule) 1 Capsules By Mouth every day. Refills: 11. hydrochlorothiazide (hydrochlorothiazide 25 mg Tab) 1 Tablets By Mouth every day. Refills: 3. hydrOXYzine (hydrOXYzine hydrochloride 25 mg Tab) 25 Milligram By Mouth Once. Refills: 4. ibuprofen (ibuprofen 800 mg Tab) 1 Tablets By Mouth 3 times a day. Refills: 0. Misc Prescription (handicap placard) dispense 1 handicap placard. expires: 11/03/2034. Refills: 0. omeprazole (omeprazole 40 mg Cap-DR) 1 Capsules By Mouth 2 times a day. Refills: 3. ondansetron (Zofran 4 mg Tab) 1 Tablets By Mouth every 8 hours as needed Nausea/Vomiting. Refills: 1. oxycodone (oxyCODONE 10 mg ER Tab) 1 Tablets By Mouth every 12 hours as needed severe pain. tirzepatide (Zepbound 2.5 mg/0.5 mL subcutaneous solution) 2.5 Milligram Subcutaneous every week. Refills: 1. tirzepatide (Zepbound 2.5 mg/0.5 mL subcutaneous solution) 2.5 Milligram Subcutaneous every week. Refills: 3. zolpidem (Ambien 10 mg Tab) 1 Tablets By Mouth once a day (at bedtime) as needed for sleep. Refills: 5. PATIENT EDUCATION INFORMATION: Instructions: Chronic Back Pain Follow up: With: Address: When: KRISTAN LAU In 3 days 02/03/2025 DIAGNOSIS: Chronic back pain; Other chronic [facility]Normal[facility] Patient Summaryon [id number] Patient SummaryED Patient Summary [place] [id number] Patient Discharge Instructions Person Information Name: JERAD TRACY Age: 49 Years Arrival Date: 01/31/2025 11:43:31 Discharge Diagnosis: Chronic back pain; Other chronic pain Primary Care Physician: FLOR JONES Provider Information Primary Provider: Cameron Rene DO Advanced Dietetic Intern:Robert Taylor PA-C The exam and treatment you received in the Emergency Department were for an urgent problem and are not intended as complete care. It is important that you follow up with a doctor, nurse practitioner,or physician???s construction assistant for ongoing care. If your symptoms become worse or you do not improve asexpected and you are unable to reach your usual health care provider, you should return to the Emergency Department. We are available 24 hours a day. JERAD TRACY has been given the following list of patient education materials, prescriptions andfollow-up instructions: Follow-up Instructions: With: Address: When: KRISTAN LAU In 3 days 02/03/2025 In the event that this physician does not participate in your insurance network, please consult with your insurance company to find a nearby participating provider. Patient Education Materials: Chronic Back Pain A MESSAGE TO ALL PATIENTS REGARDING OPIOIDS PRESCRIPTION OPIOIDS: WHAT YOU NEED TO KNOW Prescription opioids can be used to help relieve jcnshqzu-ov-trzvmc pain and are often prescribed following a [...] guidance from the Food and Drug Administration (www.fda.gov/Drugs/ResourcesForYou). ??? Visit www.cdc.gov/drugoverdose to learn about the risks of opioids abuse and overdose. ??? If you believe you may be struggling with addiction, tell your health childcare aide and askfor guidance or call [facility]???S Na (more content not included)...[facility] CenterED Note-Physicianon [id number] Note-PhysicianED Note-Physician Basic Information Time Seen: Yaw MILES, Landon Hugo. 01/26/2025 11:59 Chief Complaint patient presents with chronic lower back pain History of Present Illness A 49-year-old female reports to ED with concerns of acute flareup of chronic back pain. She reportsthat her pain management appointment got moved back till February. She is still having pain. No acute flareup at this time. Has been on Percocet 10 for pain, but having acute flare at this time. No new symptoms. No new injuries. No bowel or bladder problems. Reports this is her chronic pain would just like a dose of medication for relief. Review of Systems No other aggravating or relieving factors no other associated symptoms no other prior treatments orcomplaints. Family: Reviewed and noncontributory Social: lives at home Review of systems negative unless otherwise specified in the HPI. Physical Exam Vitals & Measurements T: 36.5 ???C(Oral) HR: 88(Peripheral) RR: 18 BP: 134/78 SpO2: 98% HT: 160 cm WT: 119 kg BMI: 46.48 General: The patient appears well and in no apparent distress. Patient is resting comfortably in chair. Afebrile Skin: Warm, dry, no pallor noted. Head: Normocephalic, atraumatic Neck: No JVD Eye: PERRLA, EOMI ENT: Moist mucus membranes Cardiovascular: Regular rate. normal peripheral perfusion. Pedal pulses +2 bilaterally Respiratory: No respiratory distress. no accessory muscle use. no obvious audible wheezing Chest Wall: no deformity Musculoskeletal: normal ROM, no deformity, no swelling. No step-off felt of the lower lumbar spine.Mild generalized tenderness throughout entire lumbar region. GI: No obvious distention Neurological: A&O. moves all extremities equal strength and symmetry Psychiatric: Cooperative and appropriate Medical Decision Making A 49-year-old female reports to ED with concerns of acute flareup of her chronic back pain. No new symptoms. No new injuries. No concerns for cauda equina syndrome. She has longstanding history of this pains been seen multiple times. Discussed no prescription medication and discussed follow-up withher pain management doctor. She was understanding. She was given 1 dose of pain medication here to try to break her pain cycle. Discussed precautions. Follow-up with your primary care provider in 3 to 5 days. If symptoms worsen, do not improve, or new symptoms arise please report back to emergency department for further evaluation. The patient was understanding and agreeable to plan moving forward. Assessment/Plan Chronic back pain (M54.9: Dorsalgia, unspecified) Other chronic pain (G89.29: Other chronic pain) Orders: morphine, 8 mg = 2 mL, Injection, IntraMuscular, Once, Stop date 01/26/25 12:23:00 EST, STAT, Startdate 01/26/25 12:23:00 EST, 01/26/25 12:23:00 EST Medications Administered Given morphine 4 mg/mL Inj, 8 mg, IntraMuscular Disposition Plan Patient Discharge Condition Stable Discharge Disposition To home Discharge Prescription List Prescriptions No active prescription medications Follow-up With When Contact Information KRISTAN LAU In 3 days 01/29/2025 EST Additional Instructions: Call Dr for diagnosis based follow up Patient Education Chronic Back Pain, Dfrl-yn-Kxjr Attestation Patient seen and evaluated by the physician construction assistant. Attending physician was present in the emergency department and supervised care. This visit was performed by both the physician and an APC. I performed all aspects of the MDM as documented. This report was transcribed using voice recognition software. Every effort was made to ensure accuracy, however, inadvertently computerized bill recapitulation clerk mistakes may be present. Appropriate healthcare PPE [...] Diarrhea Disease of liver Drug therapy finding Edema Elevated blood pressure reading Encounter for screening mammogram for breast cancer Fatigue HTN (hypertension) Migraine Morbid obesity with BMI of 45.0-49.9, adult Obesity Screening for cardiovascular condition Smoker Smoker Tendonitis of right wrist Weight gain Wellness examination Historical Bipolar Continuous opioid dependence Hepatitis C Liver disease Lyme disease Migraines Procedure/ (more content not included)...[facility] Comment on above:Result Comment: Electronically Signed By: Yaw MILES, Landon Govea\.br\Date and Time Signed: 01/27/2516:53 EST\.br\Electronically Co-Signed By: Jorge Mcintosh DO\.br\Date and Time Co-Signed: 01/29/25 07:00 ESTED PROVIDER NOTESon [id number] Ed Provider NoteED Provider Note: Last filed note HNO ID: [id number] Author: Rod Woodall PA-C Service: Emergency Medicine Author Type: Physician Herbicide Sprayer Filed: 01/28/251956 Note Text: TRIAGE CHIEF COMPLAINT: Chief Complaint Patient presents with Back Pain HPI: Jerad Tracy is a 49 year old female who presents today with a chief complaint of lower back pain. Patient states that she is from [place], [place] and drove down today to visit friends for an entertainment event. She states that the long car ride has exacerbated her chronic lower back pain. Patient endorses a history of chronic lower back pain, she states that she has a bulging disc at L4 and L5. She states that she does have a morphine pain pump, she also states she used to have a spinal stimulator however this has been removed. Patient denies any traumatic injury to the back or heavy lifting/straining. Patient denies any numbness or paresthesias in the left lower extremities. Patient states that she tends to favor her left lower extremity when she is having flares of her pain, she denies any new changes. Patient denies any saddle anesthesia or loss of bowel/bladder control. Patient denies any fevers, chills, chest pain, shortness of breath, abdominal pain, dysuria or hematuria. External ED Note - reviewed external ED visit on 01/27/2025 for back pain. REVIEW OF SYSTEMS: See HPI for further details. Review of systems otherwise negative unless stated above. Problem List[1] PAST MEDICAL HISTORY: Past Medical History: Diagnosis Date Chronic back pain Liver fibrosis CURRENT MEDICATIONS: No current facility-administered medications for this encounter. Current Outpatient Medications: cyclobenzaprine (FLEXERIL) 10 mg tablet, Take 1 Tab by mouth in the morning and 1 Tab at noon and 1 Tab before bedtime., Disp: , Rfl: hydrOXYzine HCL (ATARAX) 25 mg tablet, Take 1 Tab by mouth three times a day as needed., Disp: , Rfl: DULoxetine (CYMBALTA) 60 mg capsule, Take 90 mg by mouth in the morning., Disp: , Rfl: hydroCHLOROthiazide 25 mg tablet, Take 1 Tab by mouth in the morning., Disp: , Rfl: naproxen (NAPROSYN) 500 mg tablet, Take 1 Tab by mouth two times a day as needed (pain), Disp: 20 Tab, Rfl: 0 lidocaine patch (LIDODERM) 5 % topical patch, Apply 1 Patch daily, Disp: 14 Patch, Rfl: 0 methocarbamoL (ROBAXIN) 750 mg tablet, Take 2 Tab by mouth three times a day as needed, Disp: 30 Tab, Rfl: 0 ketorolac (TORADOL) 10 mg tablet, Take 1 Tab by mouth every 6 hours as needed for up to 30 doses, Disp: 30 Tab, Rfl: 0 gabapentin (NEURONTIN) 300 mg capsule, Take 1 Cap by mouth three times a day, Disp: , Rfl: ibuprofen (MOTRIN) 800 mg tablet, Take 1 Tab by mouth as needed in the morning and 1 Tab as needed at noon and 1 Tab as needed in the evening for Pain., Disp: , Rfl: diazePAM (VALIUM) 5 mg tablet, Take 1 Tab by mouth three times a day, Disp: 10 Tab, Rfl: 0 SURGICAL HISTORY: Past Surgical History: Procedure Laterality Date Myringotomy Other Surgical History L4 removal and shaved down L5 REMOVAL GALLBLADDER REMOVAL OF TONSILS,14+ Y/O VAG HYST 250 GM/< FAMILY HISTORY: History reviewed. No pertinent family history. SOCIAL HISTORY: Social History[2] ALLERGIES: Hydrocodone-acetaminophen and Penicillin g PHYSICAL EXAM: Vitals: 01/28/25 1455 01/28/25 1628 BP: (!) 141/95 152/89 Pulse: 90 89 Resp: 16 Temp: 97.3 F (36.3 C) SpO2: 98% 97% Weight: 117 kg (258 lb) Vitals during ED course were reviewed and are as charted. Constitutional: No acute distress, Non-toxic appearance, sitting on the edge of the bed and rocking during interview and examination, pleasant mood, conversing appropriately. HENT: Normocephalic, Atraumatic, Bilateral external ears normal, Nose normal. Eyes: EOMI, Conjunctiva normal, No discharge. Neck: Supple, No stridor, No visible masses Cardiovascular: Normal heart rate, Normal rhythm, No murmurs, No rubs, No gallops. Pulmonary/Chest: Normal breath sounds, No respiratory distress, No wheezing, No chest tenderness Back: Midline tenderness throughout the lumbar spine. No midline or paravertebral tenderness throughout the cervical, thoracic spine. No CVA tenderness bilaterally Extremities: Normal range of motion, No edema, No tenderness Neurologic: Alert function, No focal defecits Skin: Warm, Dry, No erythema, No rash Psychiatric: Affect normal, Judgement normal, Mood normal Labs Reviewed - No data to display ED COURSE Pertinent Labs Jerad Tracy is a 49 year old female who presents to the emergency department with a chief complaint of lower back pain. Patient states that she is from [place], [place] and drove down today to visit friends for an entertainment event. She states that the long car ride has exacerbated her chronic lower back pain. Patient endorses a history of chronic lower back pain, she states that she has a bulging disc at L4 a (more content not included)...[facility] Ed Provider NoteED Provider Note: Last filed note HNO ID: [id number] Author: Courtney Robison MD Service: Emergency Medicine Author Type: Physician Filed: 01/31/25 [id number] Note Text: I have seen Jerad Tracy [...] full H department evaluation, and medical decision-making. Final Impression 1. Chronic low back pain, unspecified back pain laterality, unspecified whether sciatica present Electronically signed by: Courtney Robison MD, 01/31/2025 4:12 [facility] TRIAGEon [id number] Ed Triage NoteED Triage Note: Last filed note HNO ID: [id number] Author: Roxanne Sadler, RN Service: ??? Author Type: Registered Nurse Filed: 01/28/25 9579 Note Text: Pt ambulates into triage with c/o lower back pain. Pt has hx of chronic back pain. No injury. States pain 11/01 [facility] [id number] Clinical SummaryED Clinical Summary [place] [id number] ED Clinical Summary Person Information Name: JERAD TRACY [place] Age: 49 Years : 1975 Sex: Female Language: Malagasy PCP: FLOR JONES Marital Status: MRN: [id number] Visit Id: Visit Reason: Back pain; SEVERE LOWER BACK PAIN Speciality: Acuity: 4 Enc Type: Emergency Med Service: Emergency Arrival: 01/27/2025 19:38:01 Discharge: 01/27/2025 20:44:44 LOS: 000 01:06 Checkin: 01/27/2025 19:38:01 Checkout: 01/27/2025 20:44:44 Dispo Type: Home (Routine DC) EVENTS: Event Name Event Status Request Date/Time Start Date/Time Complete Date/Time Arrive Complete 01/27/2025 19:38:01 01/27/2025 19:38:01 01/27/2025 19:38:01 Document Home Meds Request 01/27/2025 19:38:01 Triage Complete 01/27/2025 19:38:01 01/27/2025 19:44:42 01/27/2025 19:44:42 Bed Assign Complete 01/27/2025 19:40:17 01/27/2025 19:40:17 01/27/2025 19:40:17 Dr Exam Complete 01/27/2025 19:40:17 01/27/2025 19:40:39 01/27/2025 19:40:39 RN Exam Complete 01/27/2025 19:40:17 01/27/2025 20:13:09 01/27/2025 20:13:09 Registration Request 01/27/2025 19:40:39 Meds Admin Complete 01/27/2025 20:06:04 01/27/2025 20:16:04 Discharge Complete 01/27/2025 20:06:10 01/27/2025 20:44:11 01/27/2025 20:44:11 Transfer Complete 01/27/2025 20:44:11 01/27/2025 20:44:11 01/27/2025 20:44:11 ADDRESS: [address] [place] [address] [facility] [id number] [facility] DOC NOTES: MEDICAL INFORMATION: Prescriptions Given: Medications to Continue with No Changes Other Medications cyclobenzaprine (cyclobenzaprine 10 mg Tab) 1 Tablets By Mouth 3 times a day as needed for spasm. Refills: 1. duloxetine (Cymbalta 60 mg oral delayed release capsule) 1 Capsules By Mouth every day. Refills: 5. duloxetine (duloxetine 30 mg oral delayed release capsule) 1 Capsules By Mouth every day. Refills: 11. hydrochlorothiazide (hydrochlorothiazide 25 mg Tab) 1 Tablets By Mouth every day. Refills: 3. hydrOXYzine (hydrOXYzine hydrochloride 25 mg Tab) 25 Milligram By Mouth Once. Refills: 4. ibuprofen (ibuprofen 800 mg Tab) 1 Tablets By Mouth 3 times a day. Refills: 0. Misc Prescription (handicap placard) dispense 1 handicap placard. expires: 11/03/2034. Refills: 0. omeprazole (omeprazole 40 mg Cap-DR) 1 Capsules By Mouth 2 times a day. Refills: 3. ondansetron (Zofran 4 mg Tab) 1 Tablets By Mouth every 8 hours as needed Nausea/Vomiting. Refills: 1. oxycodone (oxyCODONE 10 mg ER Tab) 1 Tablets By Mouth every 12 hours as needed severe pain. tirzepatide (Zepbound 2.5 mg/0.5 mL subcutaneous solution) 2.5 Milligram Subcutaneous every week. Refills: 1. tirzepatide (Zepbound 2.5 mg/0.5 mL subcutaneous solution) 2.5 Milligram Subcutaneous every week. Refills: 3. zolpidem (Ambien 10 mg Tab) 1 Tablets By Mouth once a day (at bedtime) as needed for sleep. Refills: 5. PATIENT EDUCATION INFORMATION: Instructions: Managing Chronic Back Pain; Chronic Back Pain Follow up: With: Address: When: KRISTAN LAU In 3 days 01/30/2025 Comments: Call the office of your primary [...] symptoms. DIAGNOSIS: Chronic back pain; Other chronic painNormalFisher Pollock Medical CenterED Note-Physicianon [id number] Note-PhysicianED Note-Physician Basic Information Time Seen: Nikhil Tubbs DOAdrien 01/27/2025 19:40 Chief Complaint left lower back pain more severe over last few days History of Present Illness 49-year-old female to the emergency department chief complaint of acute on chronic back pain. No falls injuries. No bowel bladder incontinence or retention. She recently got a pain pump installed however they are working on titrating her doses. Pain tonight more severe than normal. Review of Systems A 10 point review of systems is negative except as noted above. Medical and Surgical History: Reviewed and noted Social history: Lives at home Tobacco: Denies Physical Exam Vitals & Measurements T: 36.8 ???C(Oral) HR: 91(Peripheral) RR: 20 BP: 160/89 SpO2: 98% HT: 160.02 cm WT: 115 kg BMI: 44.91 VITALS: I have reviewed the triage vital [...] No JVD. Patient moves neck without restriction. Spine: No midline tenderness. No rash, ecchymosis. GI/: Abdomen is soft and non-tender. Normoactive bowel sounds. EXTREMITIES: Symmetric muscle bulk. No joint swelling. No clubbing, cyanosis, or deformity. SKIN: Warm and dry. Normal turgor. No rash or lesions appreciated. PSYCH: Mood, affect, and interaction is appropriate to the setting. Medical Decision Making 49-year-old female to the emergency department chief complaint of acute on chronic back pain. Vitalstable, the patient is afebrile. Single dose of IM pain medication is given. She will follow-up with her pain management doctor. Return precautions were discussed. All questions were answered. The patient was discharged home. OARRS reviewed. Assessment/Plan Chronic back pain (M54.9: Dorsalgia, unspecified) Other chronic pain (G89.29: Other chronic pain) Orders: HYDROmorphone, 1 mg = 1 mL, Injection, IntraMuscular, Once, Stop date 01/27/25 20:05:00 EST, STAT, Start date 01/27/25 20:05:00 EST, 01/27/25 20:05:00 EST Medications Administered Given HYDROmorphone 1 mg/mL injectable solution, 1 mg, IntraMuscular Disposition Plan Patient Discharge Condition Stable Discharge Disposition Home Discharge Prescription List Prescriptions No active prescription medications Follow-up With When Contact Information KRISTAN LAU In 3 days 01/30/2025 EST Additional Instructions: Call the office of your [...] any new or worsening symptoms. Patient Education Managing Chronic Back Pain Chronic Back Pain Problem List/Past Medical History Ongoing Arthritis of first carpometacarpal joint of right hand Bipolar disorder Chronic back pain Chronic hepatitis C Closed fracture of trapezoidal bone of wrist COVID-19 Diarrhea Disease of liver Drug therapy finding Edema Elevated blood pressure reading Encounter for screening mammogram for breast cancer Fatigue HTN (hypertension) Migraine Morbid obesity with BMI of 45.0-49.9, adult Obesity Screening for cardiovascular condition Smoker Smoker Tendonitis of right wrist Weight gain Wellness examination Historical Bipolar Continuous opioid dependence Hepatitis C Liver disease Lyme disease Migraines Procedure/Surgical History Hysterectomy (2010), History of cholecystectomy, Hysterectomy, lap x 7, Tonillectomy with adenoids. Medications Inpatient No active inpatient medications Home Ambien 10 mg Tab, 10 mg= 1 tab(s), Oral, Once a day (at bedtime), PRN, 5 refills cyclobenzaprine 10 mg Tab, 10 mg= 1 tab(s), Oral, TID, PRN, 1 refills Cymbalta 60 mg oral delayed release capsule, 60 mg= 1 cap(s), Oral, Daily, 5 refills duloxetine 30 mg oral delayed release capsule, 30 mg= 1 cap(s), Oral, Daily, 11 refills handicap placard, See Instructions hydrochlorothiazide 25 mg Tab, 25 mg= 1 tab(s), Oral, Daily, 3 refills hydrOXYzine hydrochloride 25 mg Tab, 25 mg, Oral, Once, 4 r (more content not included)...[facility]Result Comment: Electronically Signed By: Nikhil Tubbs DO\.br\Date and Time Signed: 01/27/25 23:11 ESTED Patient Summaryon [id number] Patient SummaryED Patient Summary [place] [id number] Patient Discharge Instructions Person Information Name: JERAD TRACY Age: 49 Years Arrival Date: 01/27/2025 19:38:01 Discharge Diagnosis: Chronic back pain; Other chronic pain Primary Care Physician: FLOR JONES Provider Information Primary Provider: Nikhil Tubbs DO Advanced Dietetic Intern:None The exam and treatment you received in the Emergency Department were for an urgent problem and are not intended as complete care. It is important that you follow up with a doctor, nurse practitioner,or physician???s construction assistant for ongoing care. If your symptoms become worse or you do not improve asexpected and you are unable to reach your usual health care provider, you should return to the Emergency Department. We are available 24 hours a day. JERAD TARCY has been given the following list of patient education materials, prescriptions andfollow-up instructions: Follow-up Instructions: With: Address: When: KRISTAN LAU In 3 days 01/30/2025 Comments: Call the office of your primary [...] a nearby participating provider. Patient Education Materials: Managing Chronic Back Pain; Chronic Back Pain A MESSAGE TO ALL PATIENTS REGARDING OPIOIDS PRESCRIPTION OPIOIDS: WHAT YOU NEED TO KNOW Prescription opioids can be used to help relieve tmuihkos-kw-yzfzmr pain and are often prescribed following a [...] pain. o Talk about ways to help man (more content not included)...[facility] Clinical Summaryon [id number] Clinical SummaryED Clinical Summary [place] [address] ED Clinical Summary Person Information Name: JERAD TRACY Tasha/[facility] Age: 49 Years : 1975 Sex: Female Language: Malagasy PCP: FLOR JONES Marital Status: Visit Id: Visit Reason: Back pain; BACK PAIN Speciality: Acuity: 4 Enc Type: Emergency Med Service: Emergency Arrival: 01/26/2025 11:54:24 Discharge: 01/26/2025 13:09:42 LOS: 000 01:15 Checkin: 01/26/2025 11:54:24 Checkout: 01/26/2025 13:09:42 Dispo Type: Home (Routine DC) EVENTS: Event Name Event Status Request Date/Time Start Date/Time Complete Date/Time Arrive Complete 01/26/2025 11:54:24 01/26/2025 11:54:24 01/26/2025 11:54:24 Document Home Meds Request 01/26/2025 11:54:24 Triage Complete 01/26/2025 11:54:24 01/26/2025 11:59:34 01/26/2025 11:59:34 Bed Assign Complete 01/26/2025 11:56:48 01/26/2025 11:56:48 01/26/2025 11:56:48 Dr Exam Complete 01/26/2025 11:56:48 01/26/2025 11:59:18 01/26/2025 11:59:18 RN Exam Complete 01/26/2025 11:56:48 01/26/2025 12:01:19 01/26/2025 12:01:19 Registration Complete 01/26/2025 11:57:49 01/26/2025 11:57:49 01/26/2025 11:57:49 Reg Complete Request 01/26/2025 11:57:49 Reg Bed Request Complete 01/26/2025 11:57:49 01/26/2025 11:57:49 01/26/2025 11:57:49 Registration Request 01/26/2025 11:59:18 Dr Exam Complete 01/26/2025 12:02:06 01/26/2025 12:02:06 01/26/2025 12:02:06 Meds Admin Complete 01/26/2025 12:23:50 01/26/2025 12:56:30 Discharge Complete 01/26/2025 12:24:22 01/26/2025 13:09:48 01/26/2025 13:09:48 Transfer Complete 01/26/2025 13:09:48 01/26/2025 13:09:48 01/26/2025 13:09:48 ADDRESS: [address] [place], [place] [address] [id number] PHYS DOC NOTES: MEDICAL INFORMATION: Prescriptions Given: Medications to Continue with No Changes Other Medications cyclobenzaprine (cyclobenzaprine 10 mg Tab) 1 Tablets By Mouth 3 times a day as needed for spasm. Refills: 1. duloxetine (Cymbalta 60 mg oral delayed release capsule) 1 Capsules By Mouth every day. Refills: 5. duloxetine (duloxetine 30 mg oral delayed release capsule) 1 Capsules By Mouth every day. Refills: 11. hydrochlorothiazide (hydrochlorothiazide 25 mg Tab) 1 Tablets By Mouth every day. Refills: 3. hydrOXYzine (hydrOXYzine hydrochloride 25 mg Tab) 25 Milligram By Mouth Once. Refills: 4. ibuprofen (ibuprofen 800 mg Tab) 1 Tablets By Mouth 3 times a day. Refills: 0. Misc Prescription (handicap placard) dispense 1 handicap placard. expires: 11/03/2034. Refills: 0. omeprazole (omeprazole 40 mg Cap-DR) 1 Capsules By Mouth 2 times a day. Refills: 3. ondansetron (Zofran 4 mg Tab) 1 Tablets By Mouth every 8 hours as needed Nausea/Vomiting. Refills: 1. oxycodone (oxyCODONE 10 mg ER Tab) 1 Tablets By Mouth every 12 hours as needed severe pain. tirzepatide (Zepbound 2.5 mg/0.5 mL subcutaneous solution) 2.5 Milligram Subcutaneous every week. Refills: 1. tirzepatide (Zepbound 2.5 mg/0.5 mL subcutaneous solution) 2.5 Milligram Subcutaneous every week. Refills: 3. zolpidem (Ambien 10 mg Tab) 1 Tablets By Mouth once a day (at bedtime) as needed for sleep. Refills: 5. PATIENT EDUCATION INFORMATION: Instructions: Chronic Back Pain, [id number] Follow up: With: Address: When: KRISTAN LAU In 3 days 01/29/2025 Comments: Call Dr for diagnosis based follow up DIAGNOSIS: Chronic back pain; Other chronic painNormalOn License Of [facility] Patient Summaryon [id number] Patient SummaryED Patient Summary [place] [id number] Patient Discharge Instructions Person Information Name: JERAD TRACY Age: 49 Years Arrival Date: 01/26/2025 11:54:24 Discharge Diagnosis: Chronic back pain; Other chronic pain Primary Care Physician: FLOR JONES Provider Information Primary Provider: Jorge Mcintosh DO Advanced Dietetic Intern:Landon Tidwell PA-C The exam and treatment you received in the Emergency Department were for an urgent problem and are not intended as complete care. It is important that you follow up with a doctor, nurse practitioner,or physician???s construction assistant for ongoing care. If your symptoms become worse or you do not improve asexpected and you are unable to reach your usual health care provider, you should return to the Emergency Department. We are available 24 hours a day. JERAD TRACY has been given the following list of patient education materials, prescriptions andfollow-up instructions: Follow-up Instructions: With: Address: When: KRISTAN LAU In 3 days 01/29/2025 Comments: Call Dr for diagnosis based follow up In the event that this physician does not participate in your insurance network, please consult with your insurance company to find a nearby participating provider. Patient Education Materials: Chronic Back Pain, Pgzo-bk-Xbzu A MESSAGE TO ALL PATIENTS REGARDING OPIOIDS PRESCRIPTION OPIOIDS: WHAT YOU NEED TO KNOW Prescription opioids can be used to help relieve ztvhlvrt-fj-rvhuku pain and are often prescribed following a [...] guidance from the Food and Drug Administration (www.fda.gov/Drugs/ResourcesForYou). ??? Visit www.cdc.gov/drugoverdose to learn about the risks of opioids abuse and overdose. ??? If you believe you may be struggling with addiction, tell your health ca (more content not included)...[facility] Clinical Summaryon [id number] Clinical SummaryED Clinical Summary [place] [id number] ED Clinical Summary Person Information Name: JERAD TRACY [place] Age: 49 Years : 1975 Sex: Female Language: Malagasy PCP: FLOR JONES Marital Status: Visit Id: Visit Reason: Respiratory problem; Sinus Pain/Congestion; Cough; CHEST/NASAL CONGESTION, COUGH, GREEN PHLEGM, RUNNY NOSE Speciality: Acuity: 4 Enc Type: Emergency Med Service: Emergency Arrival: 01/24/2025 17:50:25 Discharge: 01/24/2025 19:00:51 LOS: 000 01:10 Checkin: 01/24/2025 17:50:25 Checkout: 01/24/2025 19:00:51 Dispo Type: Home (Routine DC) EVENTS: Event Name Event Status Request Date/Time Start Date/Time Complete Date/Time Arrive Complete 01/24/2025 17:50:25 01/24/2025 17:50:25 01/24/2025 17:50:25 Document Home Meds Request 01/24/2025 17:50:25 Triage Complete 01/24/2025 17:50:25 01/24/2025 18:00:46 01/24/2025 18:00:46 Bed Assign Complete 01/24/2025 17:57:31 01/24/2025 17:57:31 01/24/2025 17:57:31 Dr Exam Complete 01/24/2025 17:57:31 01/24/2025 18:22:37 01/24/2025 18:22:37 RN Exam Complete 01/24/2025 17:57:31 01/24/2025 18:02:54 01/24/2025 18:02:54 Registration Request 01/24/2025 18:22:37 Discharge Complete 01/24/2025 18:52:26 01/24/2025 19:00:55 01/24/2025 19:00:55 Dr Exam Complete 01/24/2025 18:54:19 01/24/2025 18:54:19 01/24/2025 18:54:19 Transfer Complete 01/24/2025 19:00:55 01/24/2025 19:00:55 01/24/2025 19:00:55 ADDRESS: [address] [place] [id number] PHYS DOC NOTES: MEDICAL INFORMATION: Prescriptions Given: Medications to Continue with No Changes Other Medications cyclobenzaprine (cyclobenzaprine 10 mg Tab) 1 Tablets By Mouth 3 times a day as needed for spasm. Refills: 1. duloxetine (Cymbalta 60 mg oral delayed release capsule) 1 Capsules By Mouth every day. Refills: 5. duloxetine (duloxetine 30 mg oral delayed release capsule) 1 Capsules By Mouth every day. Refills: 11. hydrochlorothiazide (hydrochlorothiazide 25 mg Tab) 1 Tablets By Mouth every day. Refills: 3. hydrOXYzine (hydrOXYzine hydrochloride 25 mg Tab) 25 Milligram By Mouth Once. Refills: 4. ibuprofen (ibuprofen 800 mg Tab) 1 Tablets By Mouth 3 times a day. Refills: 0. Misc Prescription (handicap placard) dispense 1 handicap placard. expires: 11/03/2034. Refills: 0. omeprazole (omeprazole 40 mg Cap-DR) 1 Capsules By Mouth 2 times a day. Refills: 3. ondansetron (Zofran 4 mg Tab) 1 Tablets By Mouth every 8 hours as needed Nausea/Vomiting. Refills: 1. oxycodone (oxyCODONE 10 mg ER Tab) 1 Tablets By Mouth every 12 hours as needed severe pain. tirzepatide (Zepbound 2.5 mg/0.5 mL subcutaneous solution) 2.5 Milligram Subcutaneous every week. Refills: 1. tirzepatide (Zepbound 2.5 mg/0.5 mL subcutaneous solution) 2.5 Milligram Subcutaneous every week. Refills: 3. zolpidem (Ambien 10 mg Tab) 1 Tablets By Mouth once a day (at bedtime) as needed for sleep. Refills: 5. PATIENT EDUCATION INFORMATION: Instructions: Chronic Back Pain; Upper Respiratory Infection, Adult Follow up: With: Address: When: KRISTAN JUDI In 3 days 01/27/2025 DIAGNOSIS: Chronic back pain; Other chronic pain; Viral URI with coughNormalFisher Sal Medical CenterED Note-Physicianon [id number] Note-PhysicianED Note-Physician Basic Information Time Seen: Gumaro MILES, Manuel Marino 01/24/2025 18:22 Chief Complaint pt reports cough/congestion/green musucs. states just wants some abx and a shot . denies any fever History of Present Illness Patient is a 49-year-old female presents today for evaluation of her upper respiratory symptoms. Patient states that it started about 1 to 2 days ago. She is requesting an antibiotic. Denies any fevers, bodies, chills. Denies any chest pain or shortness of breath. She has no concern for pneumonia. She notes she has chronic back pain and follows with her painter for increases inher pain pump tomorrow. Review of Systems No other aggravating or relieving factors no other associated symptoms no other prior treatments orcomplaints. Family: Reviewed and noncontributory Social: lives at home Review of systems negative unless otherwise specified in the HPI. Physical Exam Vitals & Measurements T: 36.5 ???C(Oral) HR: 99(Peripheral) RR: 20 BP: 143/77 SpO2: 99% HT: 160 cm WT: 119 kg BMI: 46.48 Nurse's notes and vital signs reviewed. General: Alert, no acute distress, patient resting comfortably Patient is not toxic or lethargic. Skin: Warm, intact, no pallor noted. There is no evidence of rash at this time. Head: Normocephalic, atraumatic Eye: Normal conjunctiva Ears, Nose, Throat: Moist mucous membranes. No posterior pharyngeal erythema no exudate swelling shift or mass. No trisumus no stridor. Tympanic membranes unremarkable bilaterally no injection erythema no posterior effusions perforation or pus. Neck: No meningeal signs. Cardio: Regular Rate and Rhythm with normal peripheral perfusion Respiratory: No acute distress, no stridor, no retractions. CTA bilaterally. Abdomen: Soft, nontender, no masses detected. No rebound, guarding, or rigidity Neurological: Appropriate for age Psychiatric: Cooperative Procedure [X] The patient was diagnosed with upper respiratory infection and was not prescribed an antibiotic. [SATISFIES MIPS PERFORMANCE] [ ] The patient has competing comorbid condition within the last 12 months. The comorbid condition was [] (e.g., neutropenia, cystic fibrosis, chronic bronchitis, pulmonary edema, respiratory failure, rheumatoid lung disease). [MIPS PERFORMANCE EXCEPTION/EXCLUSION [ ] The patient is already on antibiotics, or has taken them within the last 30 days. [MIPS PERFORMANCE EXCEPTION/EXCLUSION] [ ] The patient had a competing diagnosis of [] (e.g. acute otitis media, chronic sinusitis, UTI, etc.) [MIPS PERFORMANCE EXCEPTION/EXCLUSION] [ ] The patient was diagnosed with upper respiratory infection and was prescribed or dispensed an antibiotic. [DOES NOT SATISFY [facility] PERFORMANCE] Medical Decision Making Patient is a 49-year-old female presents today for evaluation of her upper respiratory symptoms that started 1 to 2 days ago. On exam patient is afebrile and nontoxic-appearing. She is not tachycardic or hypotensive. No tachypnea. SpO2 99% room air. No posterior pharyngeal erythema or edema. No trismus or stridor. TMs unremarkable bilaterally. CTA to bilateral lung gonzalez. RRR. Abdomen soft nontender. Discussed with patient that we could obtain workup with swabs and chest x-ray but she wants tohold off for now. She is requesting an antibiotic but I discussed with her that given her symptoms have only been 24 to 48 hours that this is likely viral URI with cough which requires symptomatic man agement at this time. She acknowledges this and is okay with not doing an antibiotic. She does request a shot for pain tonight but given her pain in her back is chronic and unchanged from her baseline and she sees her painter tomorrow morning we will hold off on this for now. Should be discharged home with close follow-up with her PCP and painter. Return to ED precautions were reviewed with the patient at length. Assessment/Plan Chronic back pain (M54.9: Dorsalgia, unspecified) Other chronic pain (G89.29: Other chronic pain) Viral URI with cough (J06.9: Acute upper respiratory infection, unspecified) Disposition Plan Patient Discharge Condition Stable Discharge Disposition Home Discharge Prescription List Prescriptions No active prescription medications Follow-up With When Contact Information KRISTAN LAU In 3 days 01/27/2025 EST Additional Instructions: Patient Education Chronic Back Pain Upper Respiratory Infection, Adult Attestation Patient seen and evaluated by the physician construction assistant. Attending physician was present in the emergency department and supervised care. This visit was performed by both the physician and an APC. I performed all aspects of the MDM as documented. This report was transcribed using voice recognition software. Every effort was made to ensure accuracy, however, inadvertently computerized bill recapitulation clerk mistakes may be present. Appropriate healthcare PPE wa (more content not included)...NormalFisher Pollock Medical CenterComment on above:Result Comment: Electronically Signed By: Manuel Naik PA-C\.br\Date and Time Signed: 01/25/2520:06 EST\.br\Electronically Co-Signed By: Nehemiah Yepez MD\.br\Date and Time Co-Signed: 01/24/25 21:37 ESTED Note-PhysicianED Note-Physician Basic Information Time Seen: Landon Tidwell PA-C 01/20/2025 16:21 Chief Complaint PT REPORTS LOW BACK PAIN. HAS A PAIN PUMP, RAN OUT OF MEDS. BEING OVERNIGHTED. History of Present Illness A send 49-year-old female reports to ED with concerns of low back pain. Reports has a pain pump, but is out of meds. Was seen yesterday, given a shot. Reports that her medication has been overnightedtonight. She reports no new symptoms. Just want something for some relief. Reports did call and themedicine is on its way. No bowel or bladder problems. No fevers or chills. No radiation into her legs. She has a chronic history of this. Review of Systems No other aggravating or relieving factors no other associated symptoms no other prior treatments orcomplaints. Family: Reviewed and noncontributory Social: lives at home Review of systems negative unless otherwise specified in the HPI. Physical Exam Vitals & Measurements T: 36.8 ???C(Oral) HR: 98(Peripheral) RR: 12 BP: 145/96 SpO2: 98% HT: 160 cm WT: 120 kg BMI: 46.88 general: The patient appears well and in no apparent distress. Patient is resting comfortably in chair. Afebrile Skin: Warm, dry, no pallor noted. Head: Normocephalic, atraumatic Neck: No JVD Eye: PERRLA, EOMI ENT: Moist mucus membranes Cardiovascular: Regular rate. normal peripheral perfusion. Pedal pulses +2 bilaterally Respiratory: No respiratory distress. no accessory muscle use. no obvious audible wheezing Chest Wall: no deformity Musculoskeletal: normal ROM, no deformity, no swelling. No lumbar step-off felt on exam. Mild tenderness generalized throughout the entire lumbar region. GI: No obvious distention Neurological: A&O. moves all extremities equal strength and symmetry Psychiatric: Cooperative and appropriate Medical Decision Making 49-year-old female with a chronic history of acute back pain reports to ED with low back pain. She ran out of her pain medication, and is currently being shipped to her. Is of a pain pump. She reports no new symptoms. This is a acute flareup of her chronic pain. Due to concerns was given 1 IM dose of morphine here. Discussed return precautions. Discussed follow-up with her pain management clinic.follow-up with your primary care provider in 3 to 5 days. If symptoms worsen, do not improve, or new symptoms arise please report back to emergency department for further evaluation. The patient was understanding and agreeable to plan moving forward. Assessment/Plan Chronic back pain (M54.9: Dorsalgia, unspecified) Other chronic pain (G89.29: Other chronic pain) Orders: morphine, 8 mg = 2 mL, Injection, IntraMuscular, Once, Stop date 01/20/25 16:43:00 EDT, STAT, Startdate 01/20/25 16:43:00 EDT, 01/20/25 16:43:00 EDT Medications Administered Given morphine 4 mg/mL Inj, 8 mg, IntraMuscular Disposition Plan Patient Discharge Condition Stable Discharge Disposition To home Discharge Prescription List Prescriptions No active prescription medications Follow-up With When Contact Information KRISTAN LAU In 3 days 01/23/2025 EDT [address] [facility] [address] [place] [address] Business (1) Additional Instructions: Call Dr for diagnosis based follow up Patient Education Chronic Back Pain, Zcpv-pc-Vrsn Acute Back Pain, Adult Attestation Patient seen and evaluated by the physician construction assistant. Attending physician was present in the emergency department and supervised care. This visit was performed by both the physician and an APC. I performed all aspects of the MDM as documented. This report was transcribed using voice recognition software. Every effort was made to ensure accuracy, however, inadvertently computerized bill recapitulation clerk mistakes may be present. Appropriate healthcare PPE [...] Diarrhea Disease of liver Drug therapy finding Edema Elevated blood pressure reading Encounter for screening mammogram for breast cancer Fatigue HTN (hypertension) Migraine Morbid obesity with BMI of 45.0-49.9, adult Obesity Screening for cardiovascular condition Smoker Smoker Tendonitis of right wrist Weight gain Wellness examination Historical Bipolar Continuous opioid dependence He (more content not included)...[facility]ark HospitalComment on above:Result Comment: Electronically Signed By: Yaw MILES, Landon Govea\.br\Date and Time Signed: 01/20/2518:38 EDT\.br\Electronically Co-Signed By: Cameron Rene DO\.br\Date and Time Co-Signed: 01/24/25 05:16 ESTED Patient Summaryon [id number] Patient SummaryED Patient Summary [place] [address] Patient Discharge Instructions Person Information Name: JERAD TRACY Age: 49 Years Arrival Date: 01/24/2025 17:50:25 Discharge Diagnosis: Chronic back pain; Other chronic pain; Viral URI with cough Primary Care Physician: FLOR JONES Provider Information Primary Provider: Nehemiah Yepez MD Advanced Dietetic Intern:Manuel Naik PA-C The exam and treatment you received in the Emergency Department were for an urgent problem and are not intended as complete care. It is important that you follow up with a doctor, nurse practitioner,or physician???s construction assistant for ongoing care. If your symptoms become worse or you do not improve asexpected and you are unable to reach your usual health care provider, you should return to the Emergency Department. We are available 24 hours a day. JERAD TRACY has been given the following list of patient education materials, prescriptions andfollow-up instructions: Follow-up Instructions: With: Address: When: KRISTAN LAU In 3 days 01/27/2025 In the event that this physician does not participate in your insurance network, please consult with your insurance company to find a nearby participating provider. Patient Education Materials: Chronic Back Pain; Upper Respiratory Infection, Adult A MESSAGE TO ALL PATIENTS REGARDING OPIOIDS PRESCRIPTION OPIOIDS: WHAT YOU NEED TO KNOW Prescription opioids can be used to help relieve fmcquwjr-ha-ympfkt pain and are often prescribed following a [...] guidance from the Food and Drug Administration (www.fda.gov/Drugs/ResourcesForYou). ??? Visit www.cdc.gov/drugoverdose to learn about the risks of opioids abuse and overdose. ??? If you believe you may be struggling with addiction, tell your health care pr (more content notincluded)...[facility] Clinical Summaryon [id number] Clinical SummaryED Clinical Summary [place] [id number] ED Clinical Summary Person Information Name: JERAD TRACY Tasha/[facility] Age: 49 Years : 1975 Sex: Female Language: Malagasy PCP: FLOR JONES Marital Status: Visit Id: Visit Reason: Medication refill; Medical problem - minor; Back pain; lower back pain Speciality: Acuity: 5 Enc Type: Emergency Med Service: Emergency Arrival: 01/22/2025 16:56:13 Discharge: 01/22/2025 17:14:54 LOS: 000 00:18 Checkin: 01/22/2025 16:56:13 Checkout: 01/22/2025 17:14:54 Dispo Type: Eloped EVENTS: Event Name Event Status Request Date/Time Start Date/Time Complete Date/Time Arrive Complete 01/22/2025 16:56:13 01/22/2025 16:56:13 01/22/2025 16:56:13 Document Home Meds Request 01/22/2025 16:56:13 Triage Complete 01/22/2025 16:56:13 01/22/2025 17:01:32 01/22/2025 17:01:32 Bed Assign Complete 01/22/2025 16:57:01 01/22/2025 16:57:01 01/22/2025 16:57:01 Dr Exam Complete 01/22/2025 16:57:01 01/22/2025 17:12:19 01/22/2025 17:12:19 RN Exam Complete 01/22/2025 16:57:01 01/22/2025 17:09:26 01/22/2025 17:09:26 Registration Request 01/22/2025 17:12:19 Discharge Complete 01/22/2025 17:15:03 01/22/2025 17:15:03 01/22/2025 17:15:03 Transfer Complete 01/22/2025 17:15:04 01/22/2025 17:15:04 01/22/2025 17:15:04 ADDRESS: [address] [place] [id number] [facility] DOC NOTES: MEDICAL INFORMATION: Prescriptions Given: Medications to Continue with No Changes Other Medications cyclobenzaprine (cyclobenzaprine 10 mg Tab) 1 Tablets By Mouth 3 times a day as needed for spasm. Refills: 1. duloxetine (Cymbalta 60 mg oral delayed release capsule) 1 Capsules By Mouth every day. Refills: 5. duloxetine (duloxetine 30 mg oral delayed release capsule) 1 Capsules By Mouth every day. Refills: 11. hydrochlorothiazide (hydrochlorothiazide 25 mg Tab) 1 Tablets By Mouth every day. Refills: 3. hydrOXYzine (hydrOXYzine hydrochloride 25 mg Tab) 25 Milligram By Mouth Once. Refills: 4. ibuprofen (ibuprofen 800 mg Tab) 1 Tablets By Mouth 3 times a day. Refills: 0. Misc Prescription (handicap placard) dispense 1 handicap placard. expires: 11/03/2034. Refills: 0. omeprazole (omeprazole 40 mg Cap-DR) 1 Capsules By Mouth 2 times a day. Refills: 3. ondansetron (Zofran 4 mg Tab) 1 Tablets By Mouth every 8 hours as needed Nausea/Vomiting. Refills: 1. oxycodone (oxyCODONE 10 mg ER Tab) 1 Tablets By Mouth every 12 hours as needed severe pain. tirzepatide (Zepbound 2.5 mg/0.5 mL subcutaneous solution) 2.5 Milligram Subcutaneous every week. Refills: 1. tirzepatide (Zepbound 2.5 mg/0.5 mL subcutaneous solution) 2.5 Milligram Subcutaneous every week. Refills: 3. zolpidem (Ambien 10 mg Tab) 1 Tablets By Mouth once a day (at bedtime) as needed for sleep. Refills: 5. PATIENT EDUCATION INFORMATION: Instructions: Follow up: DIAGNOSIS:NormalOn License Of [facility] CenterED Patient Education Noteon [id number] Patient Education NoteED Patient Education NoteNormValley Presbyterian Hospital Medical CenterED Patient Summaryon [id number] Patient SummaryED Patient Summary [place] [address] Patient Discharge Instructions Person Information Name: JERAD TRACY Age: 49 Years Arrival Date: 01/22/2025 16:56:13 Discharge Diagnosis: Primary Care Physician: FLOR JONES Provider Information Primary Provider: Advanced Dietetic Intern:None The exam and treatment you received in the Emergency Department were for an urgent problem and are not intended as complete care. It is important that you follow up with a doctor, nurse practitioner,or physician???s construction assistant for ongoing care. If your symptoms become worse or you do not improve asexpected and you are unable to reach your usual health care provider, you should return to the Emergency Department. We are available 24 hours a day. JERAD TRACY has been given the following list of patient education materials, prescriptions andfollow-up instructions: Follow-up Instructions: In the event that this physician does not participate in your insurance network, please consult with your insurance company to find a nearby participating provider. Patient Education Materials: A MESSAGE TO ALL PATIENTS REGARDING OPIOIDS PRESCRIPTION OPIOIDS: WHAT YOU NEED TO KNOW Prescription opioids can be used to help relieve khqmzxnl-cp-dlbiws pain and are often prescribed following a [...] guidance from the Food and Drug Administration (www.fda.gov/Drugs/ResourcesForYou). ??? Visit www.cdc.gov/drugoverdose to learn about the risks of opioids abuse and overdose. ??? If you believe you may be struggling with addiction, tell your health childcare aide and askfor guidance or call [facility]???S National Helpline at 3-126-103-HELP. v Source: US Department of Health and Human Services/Center for Disease Control & Prevention [facility] (more content not included)...NormalOhiohealth Van [facility]ert Hospital Medical CenterED Prov Noteon [id number] Prov NoteED PROVIDER NOTE [facility] NAME: Jerad Tracy AGE: 49 y.o. : 1975 VISIT DATE: 01/21/2025 CSN: [id number] PCP: No, Physician Chief Complaint Patient presents with Low Back Pain 49-year-old female patient presents for acute on chronic lower back pain, patient states acute exacerbation over the last few days, no saddle anesthesia, urinary retention or fecal incontinence, no traumas or injuries Past Medical History: Diagnosis Date Back pain Bulging lumbar disc L4-L5; SEVERE NARROWING OF L5-S1 Depression Past Surgical History: Procedure Laterality Date BACK SURGERY BUNIONECTOMY Bilateral 2022 CHOLECYSTECTOMY HYSTERECTOMY TONSILLECTOMY AND ADENOIDECTOMY TYMPANOSTOMY TUBE PLACEMENT History reviewed. No pertinent family history. Social History [1] Previous Medications Medication Sig FLUoxetine (PROZAC) 20 MG capsule Take 3 (three) capsules (60 mg total) by mouth daily . ibuprofen (ADVIL,MOTRIN) 800 MG tablet Take 1 (one) tablet (800 mg total) by mouth every 6 (six) hours as needed for pain . Allergies[2] Review of Systems All other systems reviewed and are negative. Patient Vitals for the past 24 hrs: BP Temp Pulse Resp SpO2 Height Weight 01/21/25 1343 (!) 146/93 97 degrees F (36.1 degrees C) (!) 104 18 98 % 5' 3 115.7 kg (255 lb) Physical Exam Vitals and nursing note [...] range of motion and neck supple. Comments: Paraspinal lumbar tenderness Pulmonary: Effort: Pulmonary effort is normal. Breath [...] No results found for this visit on 01/21/25. No orders to display Procedures Medical Decision Making 49-year-old presents for acute on chronic lower back pain, no clinical signs of vertebral fracture, no history or exam findings to suggest osteomyelitis abscess or other acute pathology, pain control given and follow-up with her pain specialist The patient has been informed that they [...] packs/day: 0.50 Average packs/day: 0.5 packs/day for 31.1 years (15.5 ttl pk-yrs) Types: Cigarettes Start date: 12/28/1993 Smokeless tobacco: Never Vaping Use Vaping status: Never Used Substance and Sexual Activity Alcohol use: Never Drug use: Never Social Drivers of Health Financial Resource Strain: Low Risk (06/12/2024) Received from [facility] Overall Financial Resource Strain (CARDIA) Difficulty of Paying Living Expenses: Not hard at all Food Insecurity: No Food Insecurity (01/18/2025) Received from [facility] Hunger Vital Sign Worried About Running Out of Food in the Last Year: Never true Ran Out of Food in the Last Year: Never true Transportation Needs: No Transportation Needs (01/18/2025) Received from [facility] - Transportation In the past 12 months, has lack of transportation kept you from medical appointments or from getting medications?: No In the past 12 months, has lack of transportation kept you from meetings, work, or from getting things needed for daily living?: No Physical Activity: Inactive (06/12/2024) Received from [facility] Exercise Vital Sign Days of Exercise per Week: 0 days Minutes of Exercise per Session: 0 min (more content not included)...NormalGrant Medical CenterED Clinical Summaryon [id number] Clinical SummaryED Clinical Summary [address] [address] ED Clinical Summary Person Information Name: JERAD TRACY [place] Age: 49 Years : 1975 Sex: Female Language: Malagasy PCP: FLOR JONES Marital Status: Visit Id: Visit Reason: Back pain; LOWER BACK PAIN Speciality: Acuity: 5 Enc Type: Emergency Med Service: Emergency Arrival: 01/20/2025 16:18:59 Discharge: 01/20/2025 16:50:16 LOS: 000 00:32 Checkin: 01/20/2025 16:18:59 Checkout: 01/20/2025 16:50:16 Dispo Type: Home (Routine DC) EVENTS: Event Name Event Status Request Date/Time Start Date/Time Complete Date/Time Arrive Complete 01/20/2025 16:18:59 01/20/2025 16:18:59 01/20/2025 16:18:59 Document Home Meds Request 01/20/2025 16:18:59 Triage Complete 01/20/2025 16:18:59 01/20/2025 16:24:37 01/20/2025 16:24:37 Bed Assign Complete 01/20/2025 16:21:24 01/20/2025 16:21:24 01/20/2025 16:21:24 Dr Exam Complete 01/20/2025 16:21:24 01/20/2025 16:21:44 01/20/2025 16:21:44 RN Exam Complete 01/20/2025 16:21:24 01/20/2025 16:25:58 01/20/2025 16:25:58 Registration Complete 01/20/2025 16:21:44 01/20/2025 16:29:21 01/20/2025 16:29:21 Reg Complete Request 01/20/2025 16:29:21 Reg Bed Request Complete 01/20/2025 16:29:21 01/20/2025 16:29:21 01/20/2025 16:29:21 Meds Admin Request 01/20/2025 16:44:14 Discharge Complete 01/20/2025 16:44:51 01/20/2025 16:50:21 01/20/2025 16:50:21 Transfer Complete 01/20/2025 16:50:21 01/20/2025 16:50:21 01/20/2025 16:50:21 ADDRESS: [facility] [id number] PHYS DOC NOTES: MEDICAL INFORMATION: Prescriptions Given: Medications to Continue with No Changes Other Medications cyclobenzaprine (cyclobenzaprine 10 mg Tab) 1 Tablets By Mouth 3 times a day as needed for spasm. Refills: 1. duloxetine (Cymbalta 60 mg oral delayed release capsule) 1 Capsules By Mouth every day. Refills: 5. duloxetine (duloxetine 30 mg oral delayed release capsule) 1 Capsules By Mouth every day. Refills: 11. hydrochlorothiazide (hydrochlorothiazide 25 mg Tab) 1 Tablets By Mouth every day. Refills: 3. hydrOXYzine (hydrOXYzine hydrochloride 25 mg Tab) 25 Milligram By Mouth Once. Refills: 4. ibuprofen (ibuprofen 800 mg Tab) 1 Tablets By Mouth 3 times a day. Refills: 0. Misc Prescription (handicap placard) dispense 1 handicap placard. expires: 11/03/2034. Refills: 0. omeprazole (omeprazole 40 mg Cap-DR) 1 Capsules By Mouth 2 times a day. Refills: 3. ondansetron (Zofran 4 mg Tab) 1 Tablets By Mouth every 8 hours as needed Nausea/Vomiting. Refills: 1. oxycodone (oxyCODONE 10 mg ER Tab) 1 Tablets By Mouth every 12 hours as needed severe pain. tirzepatide (Zepbound 2.5 mg/0.5 mL subcutaneous solution) 2.5 Milligram Subcutaneous every week. Refills: 1. tirzepatide (Zepbound 2.5 mg/0.5 mL subcutaneous solution) 2.5 Milligram Subcutaneous every week. Refills: 3. zolpidem (Ambien 10 mg Tab) 1 Tablets By Mouth once a day (at bedtime) as needed for sleep. Refills: 5. PATIENT EDUCATION INFORMATION: Instructions: Chronic Back Pain, Jniw-vt-Rirk; Acute Back Pain, Adult Follow up: With: Address: When: KRISTAN LAU [address] [place] [address] Gravitant (1) In 3 days 01/23/2025 Comments: Call Dr for diagnosis based follow up DIAGNOSIS: Chronic back pain; Other chronic painNormalFisher Sal Medical CenterED Patient Summaryon [id number] Patient SummaryED Patient Summary [address] [address] Patient Discharge Instructions Person Information Name: JERAD TRACY Age: 49 Years Arrival Date: 01/20/2025 16:18:59 Discharge Diagnosis: Chronic back pain; Other chronic pain Primary Care Physician: FLOR JONES Provider Information Primary Provider: Advanced Dietetic Intern:Lanodn Tidwell PA-C The exam and treatment you received in the Emergency Department were for an urgent problem and are not intended as complete care. It is important that you follow up with a doctor, nurse practitioner,or physician???s construction assistant for ongoing care. If your symptoms become worse or you do not improve asexpected and you are unable to reach your usual health care provider, you should return to the Emergency Department. We are available 24 hours a day. JERAD TRACY has been given the following list of patient education materials, prescriptions andfollow-up instructions: Follow-up Instructions: With: Address: When: KRISTAN LAU [address] [place] [address] Business (1) In 3 days 01/23/2025 Comments: Call Dr for diagnosis based follow up In the event that this physician does not participate in your insurance network, please consult with your insurance company to find a nearby participating provider. Patient Education Materials: Chronic Back Pain, Gdie-fr-Mlxs; Acute Back Pain, Adult A MESSAGE TO ALL PATIENTS REGARDING OPIOIDS PRESCRIPTION OPIOIDS: WHAT YOU NEED TO KNOW Prescription opioids can be used to help relieve nyuxeoft-iz-beccxr pain and are often prescribed following a [...] guidance from the Food and Drug Administration (www.fda.gov/Drugs/ResourcesForYou). ??? Visit www.cdc.gov/drugoverdose to learn about the risks of opioids abuse and overdose. ? (more content not included)...[facility] NOTESon [id number] Ed NoteED Note: Last filed note HNO ID: [id number] Author: Dejan Alonso RN Service: Emergency Medicine Author Type: Registered Nurse Filed: 01/18/251950 Note Text: Patient discharged to home, alert and oriented, skin warm, dry and pink. Denies needs and or questions. Will follow-up as directed, patient encouraged to return for worsening or new symptoms or other concerns.[facility] PROVIDER NOTESon [id number] Ed Provider NoteED Provider Note: Last filed note HNO ID: [id number] Author: Jenny King MD Service: Emergency Medicine Author Type: Physician Filed: 01/18/251939 Note Text: TRIAGE CHIEF COMPLAINT: Chief Complaint Patient presents with Back Pain HPI: Jerad Tracy is a 49 year old female in [facility] who presents to the ED with chronic lumbar back pain. She states that she has disc bulging at L4-L5 and L5-S1. She has a pain pump and follows with a pain management doctor. She states that she is not sure that the pain pump is still working as her pain has been increased over the past few days. Denies any new injuries. Her pain management doctor is currently out of town. Pain does radiate down her left leg which is chronic. Independent Historian: None External Records Review: None REVIEW OF SYSTEMS: Otherwise negative unless stated above PAST MEDICAL HISTORY: Past Medical History: Diagnosis Date Chronic back pain Liver fibrosis FAMILY HISTORY: No family history on file. SOCIAL HISTORY: Social History Socioeconomic History Marital status: Legally Spouse name: Not on file Number of children: Not on file Years of education: Not on file Highest education level: Not on file Occupational History Not on file Tobacco Use Smoking status: Every Day Current packs/day: 0.50 Average packs/day: 0.5 packs/day for 35.8 years (17.9 ttl pk-yrs) Types: Cigarettes Start date: 03/25/1989 Smokeless tobacco: Never Vaping Use Vaping status: Never Used Substance and Sexual Activity Alcohol use: Not Currently Drug use: Never Sexual activity: Not on file Other Topics Concern Not on file Social History Narrative Not on file Social Drivers of Health Financial Resource Strain: Low Risk (06/12/2024) Received from [facility] Overall Financial Resource Strain (CARDIA) Difficulty of Paying Living Expenses: Not hard at all Food Insecurity: No Food Insecurity (06/12/2024) Received from [facility] Hunger Vital Sign Within the past 12 months, you worried that your food would run out before you got the money to buy more.: Never true Within the past 12 months, the food you bought just didn't last and you didn't have money to get more.: Never true Transportation Needs: No Transportation Needs (06/12/2024) Received from [facility] PRAPARE - Transportation Lack of Transportation (Medical): No Lack of Transportation (Non-Medical): No Physical Activity: Inactive (06/12/2024) Received from [facility] Exercise Vital Sign On average, how many days per week do you engage in moderate to strenuous exercise (like a brisk walk)?: 0 days On average, how many minutes do you engage in exercise at this level?: 0 min Stress: No Stress Concern Present (06/12/2024) Received from [facility] - Occupational Stress Questionnaire Feeling of Stress : Not at all Recent Concern: Stress - Stress Concern Present (04/02/2024) Received from [facility] [place] [facility] - Occupational Stress Questionnaire Feeling of Stress : Rather much Social Connections: Socially Isolated (06/12/2024) Received from [facility] Social Connection and Isolation Panel In a typical week, how many times do you talk on the phone with family, friends, or neighbors?: More than three times a week How often do you get together with friends or relatives?: Twice a week How often do you attend caodaism or adventism services?: Never Do you belong to any clubs or organizations such as caodaism groups, unions, fraternal or athletic groups, or school groups?: No How often do you attend meetings of the clubs or organizations you belong to?: Never Are you , , , , never , or living with a partner?: Intimate Partner Violence: Not At Risk (06/12/2024) Received from [facility] Humiliation, Afraid, Rape, and Kick questionnaire Within the last year, have you been afraid of your partner or ex-partner?: No Within the last year, have you been humiliated or emotionally abused in other ways by your partner or ex-partner?: No Within the last year, have you been kicked, hit, slapped, or otherwise physically hurt by your partner or ex-partner?: No Within the last year, have you been raped or forced to have any kind of sexual activity by your partner or ex-partner?: No Housing Stability: Low Risk (06/12/2024) Received from [facility] Housing Stability Vital Sign In the last 12 months, was there a time when you were not able to pay the mortgage or rent on time?: No In the past 12 months, how many times have you moved where you were living?: 0 At any time in the past 12 months, were you homeless or living in a hubert (more content not included)...[facility] CenterED TRIAGEon [id number] Ed Triage NoteED Triage Note: Last filed note HNO ID: [id number] Author: Dejan Alonso RN Service: Emergency Medicine Author Type: Registered Nurse Filed: 01/18/251933 Note Text: Patient is a 49 year-old female that arrived to ED RM 12 from [facility]. Arrival from patient's home.Transfers by wheelchair and Presents with c/o of back pain. symptoms started yesterday, and treated with morphine pain pump. Patient condition is stable. Patient is AA Patient mentions that she has her pain pump due to her bulging disk at L4-5, L5-S1, and severe narrowing at L5 and S1. Dr. Paz is the physician that manages her pain and physician is at vacation.[facility]ED Clinical Summaryon [id number] Clinical SummaryED Clinical Summary [address], [place] [address] ED Clinical Summary Person Information Name: JERAD TRACY [place] Age: 49 Years : 1975 Sex: Female Language: Malagasy PCP: FLOR JONES Marital Status: Visit Id: Visit Reason: Medical problem - minor; back pain Speciality: Acuity: 5 Enc Type: Emergency Med Service: Emergency Arrival: 01/17/2025 20:22:25 Discharge: 01/17/2025 21:30:13 LOS: 000 01:08 Checkin: 01/17/2025 20:22:25 Checkout: 01/17/2025 21:30:13 Dispo Type: Home (Routine DC) EVENTS: Event Name Event Status Request Date/Time Start Date/Time Complete Date/Time Arrive Complete 01/17/2025 20:22:25 01/17/2025 20:22:25 01/17/2025 20:22:25 Document Home Meds Request 01/17/2025 20:22:25 Triage Complete 01/17/2025 20:22:25 01/17/2025 20:30:38 01/17/2025 20:30:38 Registration Complete 01/17/2025 20:24:07 01/17/2025 20:24:07 01/17/2025 20:24:07 Reg Complete Request 01/17/2025 20:24:07 Reg Bed Request Complete 01/17/2025 20:24:07 01/17/2025 20:24:07 01/17/2025 20:24:07 Bed Assign Complete 01/17/2025 20:30:45 01/17/2025 20:30:45 01/17/2025 20:30:45 Dr Exam Complete 01/17/2025 20:30:45 01/17/2025 20:35:01 01/17/2025 20:35:01 RN Exam Complete 01/17/2025 20:30:45 01/17/2025 20:44:18 01/17/2025 20:44:18 Registration Request 01/17/2025 20:35:01 Dr Exam Complete 01/17/2025 20:35:49 01/17/2025 20:35:49 01/17/2025 20:35:49 Meds Admin Complete 01/17/2025 20:43:24 01/17/2025 20:54:30 Discharge Complete 01/17/2025 20:44:11 01/17/2025 21:30:18 01/17/2025 21:30:18 Transfer Complete 01/17/2025 21:30:18 01/17/2025 21:30:18 01/17/2025 21:30:18 ADDRESS: [address] [place] [address] [facility] [phone] PHYS DOC NOTES: MEDICAL INFORMATION: Prescriptions Given: Medications to Continue with No Changes Other Medications cyclobenzaprine (cyclobenzaprine 10 mg Tab) 1 Tablets By Mouth 3 times a day as needed for spasm. Refills: 1. duloxetine (Cymbalta 60 mg oral delayed release capsule) 1 Capsules By Mouth every day. Refills: 5. duloxetine (duloxetine 30 mg oral delayed release capsule) 1 Capsules By Mouth every day. Refills: 11. hydrochlorothiazide (hydrochlorothiazide 25 mg Tab) 1 Tablets By Mouth every day. Refills: 3. hydrOXYzine (hydrOXYzine hydrochloride 25 mg Tab) 25 Milligram By Mouth Once. Refills: 4. [facility] [place] plac[place] dispense 1 handicap placard. expires: 11/03/2034. Refills: 0. omeprazole (omeprazole 40 mg Cap-DR) 1 Capsules By Mouth 2 times a day. Refills: 3. ondansetron (Zofran 4 mg Tab) 1 Tablets By Mouth every 8 hours as needed Nausea/Vomiting. Refills: 1. oxycodone (oxyCODONE 10 mg ER Tab) 1 Tablets By Mouth every 12 hours as needed severe pain. tirzepatide (Zepbound 2.5 mg/0.5 mL subcutaneous solution) 2.5 Milligram Subcutaneous every week. Refills: 1. tirzepatide (Zepbound 2.5 mg/0.5 mL subcutaneous solution) 2.5 Milligram Subcutaneous every week. Refills: 3. zolpidem (Ambien 10 mg Tab) 1 Tablets By Mouth once a day (at bedtime) as needed for sleep. Refills: 5. PATIENT EDUCATION INFORMATION: Instructions: Chronic Back Pain Follow up: With: Address: When: Follow-up with your pain management doctor for further evaluation of your pain pump In 3 days 01/20/2025 With: Address: When: KRISTAN LAU In 3 days 01/20/2025 Comments: Call Dr for diagnosis based follow up DIAGNOSIS: Low back pain; [facility] Clinical SummaryED Clinical Summary [place] [address] ED Clinical Summary Person Information Name: JERAD TRACY [place] Age: 49 Years : 1975 Sex: Female Language: Malagasy PCP: FLOR JONES Marital Status: Visit Id: Visit Reason: Back pain; BACK PAIN Speciality: Acuity: 4 Enc Type: Emergency Med Service: Emergency Arrival: 01/17/2025 11:00:58 Discharge: 01/17/2025 11:49:30 LOS: 000 00:49 Checkin: 01/17/2025 11:00:58 Checkout: 01/17/2025 11:49:30 Dispo Type: Home (Routine DC) EVENTS: Event Name Event Status Request Date/Time Start Date/Time Complete Date/Time Arrive Complete 01/17/2025 11:00:58 01/17/2025 11:00:58 01/17/2025 11:00:58 Document Home Meds Request 01/17/2025 11:00:58 Triage Complete 01/17/2025 11:00:58 01/17/2025 11:16:17 01/17/2025 11:16:17 Registration Complete 01/17/2025 11:02:30 01/17/2025 11:02:30 01/17/2025 11:02:30 Reg Complete Request 01/17/2025 11:02:30 Reg Bed Request Complete 01/17/2025 11:02:30 01/17/2025 11:02:30 01/17/2025 11:02:30 Bed Assign Complete 01/17/2025 11:09:57 01/17/2025 11:09:57 01/17/2025 11:09:57 Dr Exam Complete 01/17/2025 11:09:57 01/17/2025 11:18:38 01/17/2025 11:18:38 RN Exam Complete 01/17/2025 11:09:57 01/17/2025 11:18:04 01/17/2025 11:18:04 Registration Request 01/17/2025 11:18:38 Dr Exam Complete 01/17/2025 11:21:37 01/17/2025 11:21:37 01/17/2025 11:21:37 Meds Admin Complete 01/17/2025 11:33:55 01/17/2025 11:47:08 Discharge Complete 01/17/2025 11:34:30 01/17/2025 11:49:35 01/17/2025 11:49:35 Transfer Complete 01/17/2025 11:49:35 01/17/2025 11:49:35 01/17/2025 11:49:35 ADDRESS: [address] [place] [id number] PHYS DOC NOTES: MEDICAL INFORMATION: Prescriptions Given: Medications to Continue with No Changes Other Medications cyclobenzaprine (cyclobenzaprine 10 mg Tab) 1 Tablets By Mouth 3 times a day as needed for spasm. Refills: 1. duloxetine (Cymbalta 60 mg oral delayed release capsule) 1 Capsules By Mouth every day. Refills: 5. duloxetine (duloxetine 30 mg oral delayed release capsule) 1 Capsules By Mouth every day. Refills: 11. hydrochlorothiazide (hydrochlorothiazide 25 mg Tab) 1 Tablets By Mouth every day. Refills: 3. hydrOXYzine (hydrOXYzine hydrochloride 25 mg Tab) 25 Milligram By Mouth Once. Refills: 4. ibuprofen (ibuprofen 800 mg Tab) 1 Tablets By Mouth 3 times a day. Refills: 0. Misc Prescription (handicap placard) dispense 1 handicap placard. expires: 11/03/2034. Refills: 0. omeprazole (omeprazole 40 mg Efren) 1 Capsules By Mouth 2 times a day. Refills: 3. ondansetron (Zofran 4 mg Tab) 1 Tablets By Mouth every 8 hours as needed Nausea/Vomiting. Refills: 1. oxycodone (oxyCODONE 10 mg ER Tab) 1 Tablets By Mouth every 12 hours as needed severe pain. tirzepatide (Zepbound 2.5 mg/0.5 mL subcutaneous solution) 2.5 Milligram Subcutaneous every week. Refills: 1. tirzepatide (Zepbound 2.5 mg/0.5 mL subcutaneous solution) 2.5 Milligram Subcutaneous every week. Refills: 3. zolpidem (Ambien 10 mg Tab) 1 Tablets By Mouth once a day (at bedtime) as needed for sleep. Refills: 5. PATIENT EDUCATION INFORMATION: Instructions: Acute Back Pain, Adult Follow up: With: Address: When: KRISTAN JUDI In 3 days 01/20/2025 Comments: Call to schedule a follow-up appointment with your primary care provider and pain management. Return to the ED with any new or worsening symptoms. DIAGNOSIS: Acute on chronic low back pain; Other chronic painNormalFisher Pollock Medical CenterED Note-Physicianon [id number] Note-PhysicianED Note-Physician Basic Information Time Seen: Yaw MILES, Landon Hugo. 01/17/2025 20:35 Chief Complaint states has a dilaudid pump. states not able to bolus her pump. having lower back pain History of Present Illness 49-year-old female reports to the ED with concerns of a flareup of her back pain. She does not feellike her pain pump is working at this time. Reports that she does have a pain pump, but last time that she felt it worked was yesterday. She states that she was seen earlier today, which did help somewhat, but the pain has returned. She reports that she will call her pain management doctor tomorrowfor further evaluation of this. She reports no new injury. She has no new symptoms. Review of Systems No other aggravating or relieving factors no other associated symptoms no other prior treatments orcomplaints. Family: Reviewed and noncontributory Social: lives at home Review of systems negative unless otherwise specified in the HPI. Physical Exam Vitals & Measurements T: 36.6 ???C(Oral) HR: 107(Peripheral) RR: 16 BP: 166/86 SpO2: 97% HT: 160 cm WT: 120.1 kg BMI: 46.91 general: The patient appears well and in no apparent distress. Patient is resting comfortably in chair. Afebrile Skin: Warm, dry, no pallor noted. Head: Normocephalic, atraumatic Neck: No JVD Eye: PERRLA, EOMI ENT: Moist mucus membranes Cardiovascular: Regular rate. normal peripheral perfusion. Pedal pulses +2 bilaterally Respiratory: No respiratory distress. no accessory muscle use. no obvious audible wheezing Chest Wall: no deformity Musculoskeletal: normal ROM, no deformity, no swelling. No lumbar step-off felt on exam. Mild tenderness generalized throughout the entire lumbar region. GI: No obvious distention Neurological: A&O. moves all extremities equal strength and symmetry Psychiatric: Cooperative and appropriate Medical Decision Making 49-year-old female reports to ED with concerns of malfunction of her pain pump. Has not felt from work since yesterday. She reports this is her typical plan. No new symptoms. No warning signs for cauda equina syndrome. No bowel or bladder deficits. Due to her having a history of this back pain, I did treat acutely with IM morphine. Discussed ultimately she has follow-up with her pain management doctor tomorrow for further evaluation of her pain pump. She was understanding. Discussed return precautions. Follow-up with your primary care provider in 3 to 5 days. If symptoms worsen, do not improve, or new symptoms arise please report back to emergency department for further evaluation. The patient was understanding and agreeable to plan moving forward. Assessment/Plan Low back pain (M54.50: Low back pain, unspecified) Malfunction of intrathecal infusion pump (T85.615A: Breakdown (mechanical) of other nervous system device, implant or graft, initial encounter) Orders: morphine, 8 mg = 2 mL, Injection, IntraMuscular, Once, Stop date 01/17/25 20:43:00 EDT, STAT, Startdate 01/17/25 20:43:00 EDT, 01/17/25 20:43:00 EDT Medications Administered Given morphine 4 mg/mL Inj, 8 mg, IntraMuscular Disposition Plan Patient Discharge Condition Stable Discharge Disposition To home Discharge Prescription List Prescriptions No active prescription medications Follow-up With When Contact Information Follow-up with your pain management doctor for further evaluation of your pain pump In 3 days 01/20/2025 EDT Additional Instructions: KRISTAN LAU In 3 days 01/20/2025 EDT Additional Instructions: Call Dr for diagnosis based follow up Patient Education Chronic Back Pain Attestation Patient seen and evaluated by the physician construction assistant. Attending physician was present in the emergency department and supervised care. This visit was performed by both the physician and an APC. I performed all aspects of the MDM as documented. This report was transcribed using voice recognition software. Every effort was made to ensure accuracy, however, inadvertently computerized bill recapitulation clerk mistakes may be present. Appropriate healthcare PPE [...] Diarrhea Disease of liver Drug therapy finding Edema Elevated blood pressure reading Encounter for screening mammogram for (more content not included)...[facility]:Result Comment: Electronically Signed By: Landon Tidwell PA-C.br\Date and Time Signed: 01/17/2521:21 EDT\.br\Electronically Co-Signed By: Nikhil Tubbs DO.br\Date and Time Co- Signed: 01/17/2521:25 EDTED Note-PhysicianED Note-Physician Basic Information Time Seen: hZane Castro PA-C 01/17/2025 11:18 Chief Complaint pt to ER c/o L sided lower back pain that started this morning. Pt states she slept wrong. Pt states that she has a pain pump. History of Present Illness Patient is a 49-year-old female with a history of chronic low back pain who presents to the ED withacute on chronic pain. Patient states she was sleeping with her grandsons last night and believes she slept on her back wrong. This morning she woke up with left lower back pain. She denies any associated fevers, abdominal pain, numbness/tingling, saddle anesthesia, changes urination, or loss of bowel control. Patient does have a pain pump and follows with pain management, however she notes that she feels the pain pump needs increased. Patient notes she did not drive herself to the ED today andhas a ride. Review of Systems A 10 point review of systems is negative except as noted above. Medical and Surgical History: Reviewed and noted Social history: Lives at home Family History: Reviewed. Tobacco: Use Physical Exam Vitals & Measurements T: 36.8 ???C(Oral) HR: 91(Peripheral) RR: 20 BP: 126/80 SpO2: 99% HT: 160 cm WT: 118.6 kg BMI: 46.33 General: The patient appears well and in no apparent distress. Patient is resting comfortably on cart. Skin: Warm, dry, no pallor noted. Head: Normocephalic, atraumatic Neck: No nuchal rigidity. Trachea midline. Eye: PERRLA, EOMI ENT: Moist mucus membranes Cardiovascular: Regular rate normal peripheral perfusion Respiratory: No respiratory distress no accessory muscle use no obvious audible wheezing Chest Wall: no deformity Musculoskeletal: normal ROM, no deformity, no swelling. Mild tenderness to palpation over the left lower lumbar paraspinal region diffusely. 5/5 strength of the upper and lower extremities bilaterally. GI: Soft no obvious distention. No rebound or rigidity. No guarding. No tenderness. Neurological: A&O moves all extremities equal strength and symmetry Psychiatric: Cooperative and appropriate Medical Decision Making Patient is a 49-year-old female with a history of chronic low back pain who presents to the ED withacute on chronic pain. Patient is hemodynamically stable and afebrile. No recent trauma or injury, therefore I do not feel repeat imaging is warranted today. No evidence of cauda equina syndrome. Patient has a longstanding history of chronic back pain. She is given morphine in the ED. She does havea pain pump and was instructed to follow-up with pain management. Patient was advised to return to the ED with any new or worsening symptoms. She is agreeable with the plan and all questions were answered. Assessment/Plan Acute on chronic low back pain (M54.50: Low back pain, unspecified) Other chronic pain (G89.29: Other chronic pain) Orders: morphine, 4 mg = 1 mL, Injection, IntraMuscular, Once, Stop date 01/17/25 11:33:00 EDT, STAT, Startdate 01/17/25 11:33:00 EDT, 01/17/25 11:33:00 EDT ondansetron, 4 mg = 1 tab(s), Tab-Dis, Oral, Once, Stop date 01/17/25 11:33:00 EDT, STAT, Start date 01/17/25 11:33:00 EDT, 01/17/25 11:33:00 EDT Medications Administered Given morphine 4 mg/mL Inj, 4 mg, IntraMuscular Disposition Plan Patient Discharge Condition Stable Discharge Disposition Home Discharge Prescription List Prescriptions No active prescription medications Follow-up With When Contact Information KRISTAN LAU In 3 days 01/20/2025 EDT Additional Instructions: Call to schedule a follow-up appointment with your primary care provider and pain management. Return to the ED with any new or worsening symptoms. Patient Education Acute Back Pain, Adult Attestation Patient seen and evaluated by the physician construction assistant. Attending physician was present in the emergency department and supervised care. This visit was performed by both the physician and an APC. I performed all aspects of the MDM as documented. This report was transcribed using voice recognition software. Every effort was made to ensure accuracy, however, inadvertently computerized bill recapitulation clerk mistakes may be present. I performed a substantive part of the [...] Diarrhea Disease of liver Drug therapy finding Edema Elevated blood pressure reading Encounter for screening mammogram for breast cancer Fatigue HTN (hypertension) Migraine Morbid obesity with BMI of 45.0-49.9, adult Obesity Screening f (more content not included)...[facility] Comment on above:Result Comment: Electronically Signed By: Zhane Castro PA-C\.br\Date and Time Signed: 01/18/2516:21 EDT\.br\Electronically Co-Signed By: Nehemiah Yepez MD\.br\Date and Time Co-Signed: 01/17/25 19:36 EDTED Patient Summaryon [id number] Patient SummaryED Patient Summary [place] [id number] Patient Discharge Instructions Person Information Name: JERAD TRACY Age: 49 Years Arrival Date: 01/17/2025 20:22:25 Discharge Diagnosis: Low back pain; Malfunction of intrathecal infusion pump Primary Care Physician: FLOR JONES Provider Information Primary Provider: Nikhil Tubbs DO Advanced Dietetic Intern:Landon Tidwell PA-C The exam and treatment you received in the Emergency Department were for an urgent problem and are not intended as complete care. It is important that you follow up with a doctor, nurse practitioner,or physician???s construction assistant for ongoing care. If your symptoms become worse or you do not improve asexpected and you are unable to reach your usual health care provider, you should return to the Emergency Department. We are available 24 hours a day. JERAD TRACY has been given the following list of patient education materials, prescriptions andfollow-up instructions: Follow-up Instructions: With: Address: When: Follow-up with your pain management doctor for further evaluation of your pain pump In 3 days 01/20/2025 With: Address: When: KRISTAN LAU In 3 days 01/20/2025 Comments: Call Dr for diagnosis based follow up In the event that this physician does not participate in your insurance network, please consult with your insurance company to find a nearby participating provider. Patient Education Materials: Chronic Back Pain A MESSAGE TO ALL PATIENTS REGARDING OPIOIDS PRESCRIPTION OPIOIDS: WHAT YOU NEED TO KNOW Prescription opioids can be used to help relieve jbshkefh-ib-slqeic pain and are often prescribed following a [...] guidance from the Food and Drug Administration (www.fda.gov/Drugs/ResourcesForYou). ??? Visit www.cdc.gov/drugoverd (more content not included)...[facility] Patient SummaryED Patient Summary [place] [id number] Patient Discharge Instructions Person Information Name: JERAD TRACY Age: 49 Years Arrival Date: 01/17/2025 11:00:58 Discharge Diagnosis: Acute on chronic low back pain; Other chronic pain Primary Care Physician: FLOR JONES Provider Information Primary Provider: Nehemiah Yepez MD Advanced Dietetic Intern:Zhane Castro PA-C The exam and treatment you received in the Emergency Department were for an urgent problem and are not intended as complete care. It is important that you follow up with a doctor, nurse practitioner,or physician???s construction assistant for ongoing care. If your symptoms become worse or you do not improve asexpected and you are unable to reach your usual health care provider, you should return to the Emergency Department. We are available 24 hours a day. JERAD TRACY has been given the following list of patient education materials, prescriptions andfollow-up instructions: Follow-up Instructions: With: Address: When: KRISTAN LAU In 3 days 01/20/2025 Comments: Call to schedule a follow-up appointment with your primary care provider and pain management. Return to the ED with any new or worsening symptoms. In the event that this physician does not participate in your insurance network, please consult with your insurance company to find a nearby participating provider. Patient Education Materials: Acute Back Pain, Adult A MESSAGE TO ALL PATIENTS REGARDING OPIOIDS PRESCRIPTION OPIOIDS: WHAT YOU NEED TO KNOW Prescription opioids can be used to help relieve defrhbjv-ro-mjovjy pain and are often prescribed following a [...] guidance from the Food and Drug Administration (www.fda.gov/Drugs/ResourcesForYou). ??? Visit www.cdc.gov/drugoverdose to learn about t (more content not included)...[facility] Clinical Summaryon [id number] Clinical SummaryED Clinical Summary [place] [id number] ED Clinical Summary Person Information [facility]: [facility] 49 [facility] : 1975 Sex: Female Language: Malagasy PCP: FLOR JONES Marital Status: Visit Id: Visit Reason: Back pain; LOWER BACK PAIN Speciality: Acuity: 5 Enc Type: Emergency Med Service: Emergency Arrival: 01/15/2025 11:08:57 Discharge: 01/15/2025 11:40:39 LOS: 000 00:32 Checkin: 01/15/2025 11:08:57 Checkout: 01/15/2025 11:40:39 Dispo Type: Home (Routine DC) EVENTS: Event Name Event Status Request Date/Time Start Date/Time Complete Date/Time Arrive Complete 01/15/2025 11:08:57 01/15/2025 11:08:57 01/15/2025 11:08:57 Document Home Meds Request 01/15/2025 11:08:57 Triage Complete 01/15/2025 11:08:57 01/15/2025 11:13:01 01/15/2025 11:13:01 Bed Assign Complete 01/15/2025 11:09:53 01/15/2025 11:09:53 01/15/2025 11:09:53 Dr Exam Complete 01/15/2025 11:09:53 01/15/2025 11:10:17 01/15/2025 11:10:17 RN Exam Complete 01/15/2025 11:09:53 01/15/2025 11:14:14 01/15/2025 11:14:14 Registration Complete 01/15/2025 11:10:17 01/15/2025 11:36:14 01/15/2025 11:36:14 Dr Exam Complete 01/15/2025 11:27:46 01/15/2025 11:27:46 01/15/2025 11:27:46 Discharge Complete 01/15/2025 11:28:31 01/15/2025 11:40:43 01/15/2025 11:40:43 Meds Admin Complete 01/15/2025 11:29:09 01/15/2025 11:37:06 Reg Complete Request 01/15/2025 11:36:14 Reg Bed Request Complete 01/15/2025 11:36:14 01/15/2025 11:36:14 01/15/2025 11:36:14 Transfer Complete 01/15/2025 11:40:43 01/15/2025 11:40:43 01/15/2025 11:40:43 ADDRESS: [address] [place] [phone] [facility] DOC NOTES: MEDICAL INFORMATION: Prescriptions Given: Medications to Continue with No Changes Other Medications cyclobenzaprine (cyclobenzaprine 10 mg Tab) 1 Tablets By Mouth 3 times a day as needed for spasm. Refills: 1. duloxetine (Cymbalta 60 mg oral delayed release capsule) 1 Capsules By Mouth every day. Refills: 5. duloxetine (duloxetine 30 mg oral delayed release capsule) 1 Capsules By Mouth every day. Refills: 11. hydrochlorothiazide (hydrochlorothiazide 25 mg Tab) 1 Tablets By Mouth every day. Refills: 3. hydrOXYzine (hydrOXYzine hydrochloride 25 mg Tab) 25 Milligram By Mouth Once. Refills: 4. ibuprofen (ibuprofen 800 mg Tab) 1 Tablets By Mouth 3 times a day. Refills: 0. Misc Prescription (handicap placard) dispense 1 handicap placard. expires: 11/03/2034. Refills: 0. omeprazole (omeprazole 40 mg Cap-DR) 1 Capsules By Mouth 2 times a day. Refills: 3. ondansetron (Zofran 4 mg Tab) 1 Tablets By Mouth every 8 hours as needed Nausea/Vomiting. Refills: 1. oxycodone (oxyCODONE 10 mg ER Tab) 1 Tablets By Mouth every 12 hours as needed severe pain. tirzepatide (Zepbound 2.5 mg/0.5 mL subcutaneous solution) 2.5 Milligram Subcutaneous every week. Refills: 1. tirzepatide (Zepbound 2.5 mg/0.5 mL subcutaneous solution) 2.5 Milligram Subcutaneous every week. Refills: 3. zolpidem (Ambien 10 mg Tab) 1 Tablets By Mouth once a day (at bedtime) as needed for sleep. Refills: 5. PATIENT EDUCATION INFORMATION: Instructions: Chronic Back Pain Follow up: With: Address: When: KRISTAN LAU In 3 days 01/18/2025 DIAGNOSIS: Back pain, chronic; Other chronic painNormalFisher Sal Medical CenterED Note-Physicianon [id number] Note-PhysicianED Note-Physician Basic Information Time Seen: Robert Taylor PA-C 01/15/2025 11:10 Chief Complaint pt states she hurt back riding in a car History of Present Illness 49-year-old female comes to the ED for evaluation of back pain. She has a longstanding history of chronic back pain, does follow with pain management and has an implantable pain pump. She presents today with acute on chronic pain that she attributes to recent long distance car trip, as well as increased physical activity. She complains of pain across the low back. No associated paresthesias or saddle anesthesia. No lower extremity weakness. No bowel or bladder incontinence or retention. No dysuria or hematuria. No associated abdominal pain, nausea, vomiting, fever or chills. Review of Systems A 10 point review of systems is negative except as noted above. Medical and Surgical History: Reviewed and noted Social history: Lives at home Tobacco: Denies Physical Exam Vitals & Measurements T: 36.4 ???C(Oral) HR: 93(Peripheral) RR: 18 BP: 175/87 SpO2: 100% HT: 160 cm WT: 118.6 kg BMI: 46.33 Nurses notes and vital signs reviewed and patient is not hypoxic. General: The patient appears well, resting comfortably. Skin: Warm, dry. Head: Atraumatic. Neck: No JVD. Eye: Normal conjunctiva. Ears, Nose, Mouth, and Throat: Moist mucous membranes. Cardiovascular: Strong distal pulses. Chest wall: Respiratory: Respirations are nonlabored. Back: Normal range of motion. Musculoskeletal: Normal ROM with no gross deformity. Gastrointestinal: Urological: Neurological: Awake and alert. No focal deficits. Follows commands. Psychiatric: Cooperative. Medical Decision Making Patient with acute on chronic back pain. She is up ambulatory here. She is in no distress. There isno evidence of neurovascular compromise. She is medicated for discomfort and is discharged home to follow-up with her PCP and pain management team. Patient was encouraged to return to the ED if symptoms worsen or change. Assessment/Plan Back pain, chronic (M54.9: Dorsalgia, unspecified) Other chronic pain (G89.29: Other chronic pain) Orders: morphine, 8 mg = 2 mL, Injection, IntraMuscular, Once, Stop date 01/15/25 11:28:00 EDT, STAT, Startdate 01/15/25 11:28:00 EDT, 01/15/25 11:28:00 EDT ondansetron, 4 mg = 1 tab(s), Tab-Dis, Oral, Once, Stop date 01/15/25 11:28:00 EDT, STAT, Start date 01/15/25 11:28:00 EDT, 01/15/25 11:28:00 EDT Medications Administered Given morphine 4 mg/mL Inj, 8 mg, IntraMuscular Zofran ODT 4 mg Tab-Dis, 4 mg, Oral Disposition Plan Patient Discharge Condition Disposition: Discharged home Condition: Improved and stable Counseled: Patient and/or family were counseled to workup, results, treatment plan and follow-up recommendations Discharge Prescription List Prescriptions No active prescription medications Follow-up With When Contact Information KRISTAN LAU In 3 days 01/18/2025 EDT Additional Instructions: Patient Education Chronic Back Pain Attestation I performed a substantive part of the MDM during the patient???s E/M visit. I personally made or approved the documented management plan and acknowledge its risk of complications. (Independent Interpretation) My (EKG/X-Ray/US/CT) interpretation as above. (Discussion) Management/test interpretation discussed with APC. This report was transcribed using voice recognition software. Every effort was made to ensure accuracy, however, inadvertently computerized bill recapitulation clerk mistakes may be present. Appropriate healthcare PPE was used in evaluating this patient. Problem List/Past Medical History Ongoing Arthritis of first carpometacarpal joint of right hand Bipolar disorder Chronic back pain Chronic hepatitis C Closed fracture of trapezoidal bone of wrist COVID-19 Diarrhea Disease of liver Drug therapy finding Edema Elevated blood pressure reading Encounter for screening mammogram for breast cancer Fatigue HTN (hypertension) Migraine Morbid obesity with BMI of 45.0-49.9, adult Obesity Screening for cardiovascular condition Smoker Smoker Tendonitis of right wrist Weight gain Wellness examination Historical Bipolar Continuous opioid dependence Hepatitis C Liver disease Lyme disease Migraines Procedure/Surgical History Hysterectomy (2010), History of cholecystectomy, Hysterectomy, lap x 7, Tonillectomy with adenoids. Medications Inpatient No active inpatient medications Home Ambien 10 mg Tab, 10 mg= 1 tab(s), Oral, Once a day (at bedtime), PRN, 5 refills cyclobenzaprine 10 mg Tab, 10 mg= 1 tab(s), Oral, TID, PRN, 1 refills Cymbalta 60 mg oral delayed release capsule, 60 mg= 1 cap(s), Oral, Daily, 5 refills duloxetine 30 mg oral delayed release capsule, 30 mg= 1 cap(s), Oral, Daily, 11 refills handicap placard, See Instructions hydrochlorothiazide 25 mg Tab, 25 mg= 1 tab(s), Oral, Daily, 3 refills hydrOXYzine hydrochl (more content not included)...[facility] HospitalComment on above:Result Comment: Electronically Signed By: Brandon MILES, Robert\.br\Date and Time Signed: 01/15/2511:40 EDT\.br\Electronically Co-Signed By: Jorge Mcintosh DO\.br\Date and Time Co-Signed: 01/15/25 23:34 EDTED Patient Summaryon [id number] Patient SummaryED Patient Summary [place] [id number] Patient Discharge Instructions Person Information Name: JERAD TRACY Age: 49 Years Arrival Date: 01/15/2025 11:08:57 Discharge Diagnosis: Back pain, chronic; Other chronic pain Primary Care Physician: FLOR JONES Provider Information Primary Provider: Jorge Mcintosh DO Advanced Dietetic Intern:Robert Taylor PA-C The exam and treatment you received in the Emergency Department were for an urgent problem and are not intended as complete care. It is important that you follow up with a doctor, nurse practitioner,or physician???s construction assistant for ongoing care. If your symptoms become worse or you do not improve asexpected and you are unable to reach your usual health care provider, you should return to the Emergency Department. We are available 24 hours a day. JERAD TRACY has been given the following list of patient education materials, prescriptions andfollow-up instructions: Follow-up Instructions: With: Address: When: KRISTAN LAU In 3 days 01/18/2025 In the event that this physician does not participate in your insurance network, please consult with your insurance company to find a nearby participating provider. Patient Education Materials: Chronic Back Pain A MESSAGE TO ALL PATIENTS REGARDING OPIOIDS PRESCRIPTION OPIOIDS: WHAT YOU NEED TO KNOW Prescription opioids can be used to help relieve kngueguc-we-kzyeic pain and are often prescribed following a [...] guidance from the Food and Drug Administration (www.fda.gov/Drugs/ResourcesForYou). ??? Visit www.cdc.gov/drugoverdose to learn about the risks of opioids abuse and overdose. ??? If you believe you may be struggling with addiction, tell your health childcare aide and askfor guidance or call [facility] Gurdeepa (more content not included)...[facility] Clinical Summaryon [id number] Clinical SummaryED Clinical Summary [place] [id number] ED Clinical Summary Person Information Name: JERAD TRACY Tasha/[facility] Age: 49 Years : 1975 Sex: Female Language: Malagasy PCP: FLOR JONES Marital Status: Visit Id: Visit Reason: Back pain; PAIN PUMP EMPTY, BACK PAIN Speciality: Acuity: 5 Enc Type: Emergency Med Service: Emergency Arrival: 01/03/2025 10:14:16 Discharge: 01/03/2025 10:27:21 LOS: 000 00:13 Checkin: 01/03/2025 10:14:16 Checkout: 01/03/2025 10:27:21 Dispo Type: Home (Routine DC) EVENTS: Event Name Event Status Request Date/Time Start Date/Time Complete Date/Time Arrive Complete 01/03/2025 10:14:16 01/03/2025 10:14:16 01/03/2025 10:14:16 Document Home Meds Request 01/03/2025 10:14:16 Triage Complete 01/03/2025 10:14:16 01/03/2025 10:18:09 01/03/2025 10:18:09 Bed Assign Complete 01/03/2025 10:14:53 01/03/2025 10:14:53 01/03/2025 10:14:53 Dr Exam Complete 01/03/2025 10:14:53 01/03/2025 10:15:45 01/03/2025 10:15:45 RN Exam Complete 01/03/2025 10:14:53 01/03/2025 10:20:35 01/03/2025 10:20:35 Registration Complete 01/03/2025 10:15:45 01/03/2025 10:17:48 01/03/2025 10:17:48 Dr Exam Complete 01/03/2025 10:16:02 01/03/2025 10:16:02 01/03/2025 10:16:02 Reg Complete Request 01/03/2025 10:17:48 Reg Bed Request Complete 01/03/2025 10:17:48 01/03/2025 10:17:48 01/03/2025 10:17:48 Meds Admin Complete 01/03/2025 10:18:34 01/03/2025 10:26:45 Discharge Complete 01/03/2025 10:19:04 01/03/2025 10:27:26 01/03/2025 10:27:26 Transfer Complete 01/03/2025 10:27:26 01/03/2025 10:27:26 01/03/2025 10:27:26 ADDRESS: [address] [place] [phone] PHYS DOC NOTES: MEDICAL INFORMATION: Prescriptions Given: Medications to Continue with No Changes Other Medications cyclobenzaprine (cyclobenzaprine 10 mg Tab) 1 Tablets By Mouth 3 times a day as needed for spasm. Refills: 1. duloxetine (Cymbalta 60 mg oral delayed release capsule) 1 Capsules By Mouth every day. Refills: 5. duloxetine (duloxetine 30 mg oral delayed release capsule) 1 Capsules By Mouth every day. Refills: 11. hydrochlorothiazide (hydrochlorothiazide 25 mg Tab) 1 Tablets By Mouth every day. Refills: 3. hydrOXYzine (hydrOXYzine hydrochloride 25 mg Tab) 25 Milligram By Mouth Once. Refills: 4. ibuprofen (ibuprofen 800 mg Tab) 1 Tablets By Mouth 3 times a day. Refills: 0. Misc Prescription (handicap placard) dispense 1 handicap placard. expires: 11/03/2034. Refills: 0. omeprazole (omeprazole 40 mg Cap-DR) 1 Capsules By Mouth 2 times a day. Refills: 3. ondansetron (Zofran 4 mg Tab) 1 Tablets By Mouth every 8 hours as needed Nausea/Vomiting. Refills: 1. oxycodone (oxyCODONE 10 mg ER Tab) 1 Tablets By Mouth every 12 hours as needed severe pain. tirzepatide (Zepbound 2.5 mg/0.5 mL subcutaneous solution) 2.5 Milligram Subcutaneous every week. Refills: 1. tirzepatide (Zepbound 2.5 mg/0.5 mL subcutaneous solution) 2.5 Milligram Subcutaneous every week. Refills: 3. zolpidem (Ambien 10 mg Tab) 1 Tablets By Mouth once a day (at bedtime) as needed for sleep. Refills: 5. PATIENT EDUCATION INFORMATION: Instructions: Chronic Back Pain Follow up: With: Address: When: KRISTANRadha LAU In 3 days 01/06/2025 DIAGNOSIS: Back pain, chronic; Other chronic painNormalFisher Pollock Medical CenterED Note-Physicianon [id number] Note-PhysicianED Note-Physician Basic Information Time Seen: Robert Taylor PA-C 01/03/2025 10:15 Chief Complaint pt presents with back pain and pain pump present and vebralized pain pump empty History of Present Illness 49-year-old female comes to the ED for evaluation of back pain. Longstanding history of chronic back pain. She recent got a pain pump instilled. She states that she then had the dosage of her pain medicine increased, and subsequently she has run out of her medication due to the increased dosage. She is scheduled to get a refill next week. Presents today requesting medication in the meantime. No new unusual symptoms. No trauma. No associated paresthesias or saddle anesthesia. No lower extremity weakness. No bowel or bladder incontinence or retention. No dysuria or hematuria. No associated abdominal pain, nausea, vomiting, fever or chills. Review of Systems A 10 point review of systems is negative except as noted above. Medical and Surgical History: Reviewed and noted Social history: Lives at home Tobacco: Denies Physical Exam Vitals & Measurements T: 36.8 ???C(Oral) HR: 112(Peripheral) RR: 18 BP: 131/83 SpO2: 95% HT: 160 cm WT: 118.3 kg BMI: 46.21 Nurses notes and vital signs reviewed and patient is not hypoxic. General: The patient appears well, resting comfortably. Skin: Warm, dry. Head: Atraumatic. Neck: No JVD. Eye: Normal conjunctiva. Ears, Nose, Mouth, and Throat: Moist mucous membranes. Cardiovascular: Strong distal pulses. Chest wall: Respiratory: Respirations are nonlabored. Back: Normal range of motion. Musculoskeletal: Normal ROM with no gross deformity. Gastrointestinal: Urological: Neurological: Awake and alert. No focal deficits. Follows commands. Psychiatric: Cooperative. Medical Decision Making Patient acute on chronic back pain. Given a dose of medication here. Discharged home to follow-up with her PCP and pain management physician. Patient was encouraged to return to the ED if symptoms worsen or change. Assessment/Plan Back pain, chronic (M54.9: Dorsalgia, unspecified) Other chronic pain (G89.29: Other chronic pain) Orders: morphine, 8 mg = 2 mL, Injection, IntraMuscular, Once, Stop date 01/03/25 10:18:00 EDT, STAT, Startdate 01/03/25 10:18:00 EDT, 01/03/25 10:18:00 EDT Disposition Plan Patient Discharge Condition Disposition: Discharged home Condition: Improved and stable Counseled: Patient and/or family were counseled to workup, results, treatment plan and follow-up recommendations Discharge Prescription List Prescriptions No active prescription medications Follow-up With When Contact Information KRISTAN LAU In 3 days 01/06/2025 EDT Additional Instructions: Patient Education Chronic Back Pain Attestation The KENNEDI evaluated and treated the patient. I the emergency department attending was present in the department for questions and assistance. I did not take direct care in the patient unless otherwise stated in the MDM. This report was transcribed using voice recognition software. Every effort was made to ensure accuracy, however, inadvertently computerized bill recapitulation clerk mistakes may be present. Appropriate healthcare PPE was used in evaluating this patient. Problem List/Past Medical History Ongoing Arthritis of first carpometacarpal joint of right hand Bipolar disorder Chronic back pain Chronic hepatitis C Closed fracture of trapezoidal bone of wrist COVID-19 Diarrhea Disease of liver Drug therapy finding Edema Elevated blood pressure reading Encounter for screening mammogram for breast cancer Fatigue HTN (hypertension) Migraine Morbid obesity with BMI of 45.0-49.9, adult Obesity Screening for cardiovascular condition Smoker Smoker Tendonitis of right wrist Weight gain Wellness examination Historical Bipolar Continuous opioid dependence Hepatitis C Liver disease Lyme disease Migraines Procedure/Surgical History Hysterectomy (2010), History of cholecystectomy, Hysterectomy, lap x 7, Tonillectomy with adenoids. Medications Inpatient morphine 4 mg/mL Inj, 8 mg= 2 mL, IntraMuscular, Once Home Ambien 10 mg Tab, 10 mg= 1 tab(s), Oral, Once a day (at bedtime), PRN, 5 refills cyclobenzaprine 10 mg Tab, 10 mg= 1 tab(s), Oral, TID, PRN, 1 refills Cymbalta 60 mg oral delayed release capsule, 60 mg= 1 cap(s), Oral, Daily, 5 refills duloxetine 30 mg oral delayed release capsule, 30 mg= 1 cap(s), Oral, Daily, 11 refills handicap placard, See Instructions hydrochlorothiazide 25 mg Tab, 25 mg= 1 tab(s), Oral, Daily, 3 refills hydrOXYzine hydrochloride 25 mg Tab, 25 mg, Oral, Once, 4 refills ibuprofen 800 mg Tab, 800 mg= 1 tab(s), Oral, TID omeprazole 40 mg Cap-DR, 40 mg= 1 cap(s), Oral, BID, 3 refills oxyCODONE 10 mg ER Tab, 10 mg= 1 tab(s), Oral, q12hr, PRN Zepbound 2.5 mg/0.5 mL subcutaneous solution, 2.5 mg, SubCutaneous, qWeek, 3 refills Zepbound 2.5 mg/0.5 mL subcutaneous solu (more content not included)...[facility] HospitalComment on above:Result Comment: Electronically Signed By: Robert Taylor PA-C\.br\Date and Time Signed: 01/03/2514:16 EDT\.br\Electronically Co-Signed By: Mora Waldrop DO\.br\Date and Time Co-Signed: 01/03/25 16:21 EDTED Patient Summaryon [id number] Patient SummaryED Patient Summary [place] [id number] Patient Discharge Instructions Person Information Name: JERAD TRACY Age: 49 Years Arrival Date: 01/03/2025 10:14:16 Discharge Diagnosis: Back pain, chronic; Other chronic pain Primary Care Physician: FLOR JONES Provider Information Primary Provider: Mora Waldrop DO Advanced Dietetic Intern:Robert Taylor PA-C The exam and treatment you received in the Emergency Department were for an urgent problem and are not intended as complete care. It is important that you follow up with a doctor, nurse practitioner,or physician???s construction assistant for ongoing care. If your symptoms become worse or you do not improve asexpected and you are unable to reach your usual health care provider, you should return to the Emergency Department. We are available 24 hours a day. JERAD TRACY has been given the following list of patient education materials, prescriptions andfollow-up instructions: Follow-up Instructions: With: Address: When: KRISTAN LAU In 3 days 01/06/2025 In the event that this physician does not participate in your insurance network, please consult with your insurance company to find a nearby participating provider. Patient Education Materials: Chronic Back Pain A MESSAGE TO ALL PATIENTS REGARDING OPIOIDS PRESCRIPTION OPIOIDS: WHAT YOU NEED TO KNOW Prescription opioids can be used to help relieve affchkfl-zr-gxqxec pain and are often prescribed following a [...] guidance from the Food and Drug Administration (www.fda.gov/Drugs/ResourcesForYou). ??? Visit www.cdc.gov/drugoverdose to learn about the risks of opioids abuse and overdose. ??? If you believe you may be struggling with addiction, tell your health childcare aide and askfor guidance or call [facility]???S (more content not included)...[facility]Fisher [facility] CenterED Note-Physicianon [id number] Note-PhysicianED Note-Physician Basic Information Time Seen: Landon Tidwell PA-C 12/28/2024 21:02 Chief Complaint Pt arrives to ED from home with c/o N/V for last 2 days. Denies diarrhea, states no BM in 3 days. States right sided back/flank pain at site of her pain pump area. History of Present Illness 49-year-old female reports to the ED with concerns of nausea vomiting and pain around her pain pumpsite. Reports that she was seen here yesterday, but would like nausea medication she has not been able to keep anything down and continues to vomit. Reports no bowel movement in a couple days as well. No fevers or chills. No urinary symptoms. Reports to see her pain management doctor in 1 week. Review of Systems No other aggravating or relieving factors no other associated symptoms no other prior treatments orcomplaints. Family: Reviewed and noncontributory Social: lives at home Review of systems negative unless otherwise specified in the HPI. Physical Exam Vitals & Measurements T: 36.8 ???C(Oral) HR: 92(Peripheral) RR: 18 BP: 125/90 SpO2: 97% HT: 160 cm WT: 118.3 kg BMI: 46.21 General: The patient appears well and in no apparent distress. Patient is resting comfortably in chair. Afebrile Skin: Warm, dry, no pallor noted. Head: Normocephalic, atraumatic Neck: No JVD Eye: PERRLA, EOMI ENT: Moist mucus membranes Cardiovascular: Regular rate. normal peripheral perfusion Respiratory: No respiratory distress. no accessory muscle use. no obvious audible wheezing Chest Wall: no deformity Musculoskeletal: normal ROM, no deformity, no swelling GI: No obvious distention. Pain pump felt in lower right abdomen. Abdomen is otherwise soft. No rebound tenderness guarding noted. Neurological: A&O. moves all extremities equal strength and symmetry Psychiatric: Cooperative and appropriate Medical Decision Making A 49-year-old female reports to the ED with concerns of nausea vomiting some pain in the right lower quadrant where her pain pump is. She states that she has not been able to keep eating down. She reports that having some pain, as well as cannot keep anything down. Exam the patient is rather benign. She has been seen here multiple times. She was given 1 dose of pain medication here, as well as they did give her Zofran, and p.o. challenge here. She was able to pass the p.o. challenge, but when Idid go to reexamine her, patient did elope from the emergency department. Nursing staff did try to contact her, as well as did contact [facility] as she was suspected of driving herself. Assessment/Plan Eloped from emergency department (Z53.21: Procedure and treatment not carried out due to patient leaving prior to being seen by health care provider) Nausea and vomiting (R11.2: Nausea with vomiting, unspecified) Orders: morphine, 8 mg = 2 mL, Injection, IntraMuscular, Once, Stop date 12/28/24 21:15:00 EDT, STAT, Startdate 12/28/24 21:15:00 EDT, 12/28/24 21:15:00 EDT ondansetron, 4 mg = 1 tab(s), Tab-Dis, Oral, Once, Stop date 12/28/24 21:14:00 EDT, STAT, Start date 12/28/24 21:14:00 EDT, 12/28/24 21:14:00 EDT Medications Administered Given morphine 4 mg/mL Inj, 8 mg, IntraMuscular Zofran ODT 4 mg Tab-Dis, 4 mg, Oral Disposition Plan Patient Discharge Condition Stable Discharge Disposition Eloped from the ED Discharge Prescription List Prescriptions No active prescription medications Follow-up No qualifying data available Attestation Patient seen and evaluated by the physician construction assistant. Attending physician was present in the emergency department and supervised care. This visit was performed by both the physician and an APC. I performed all aspects of the MDM as documented. This report was transcribed using voice recognition software. Every effort was made to ensure accuracy, however, inadvertently computerized bill recapitulation clerk mistakes may be present. Appropriate healthcare PPE [...] Diarrhea Disease of liver Drug therapy finding Edema Elevated blood pressure reading Encounter for screening mammogram for breast cancer Fatigue HTN (hypertension) Migraine Morbid obesity with BMI of 45.0-49.9, adult Obesity Screening for cardiovascular condition Smoker Smoker Tendonitis (more content not included)...[facility] Comment on above:Result Comment: Electronically Signed By: Landon Tidwell PA-C\.br\Date and Time Signed: 12/28/2521:57 EDT\.br\Electronically Co-Signed By: Cameron Rene DO\.br\Date and Time Co-Signed: 12/29/24 02:35 EDTED Clinical Summaryon [id number] Clinical SummaryED Clinical Summary [place] [id number] ED Clinical Summary Person Information Name: JERAD TRACY/[facility] Age: 49 Years : 1975 Sex: Female Language: Malagasy PCP: FLOR JONES Marital Status: Visit Id: Visit Reason: Medical problem - minor; Nausea; Vomiting; N/V Speciality: Acuity: 3 Enc Type: Emergency Med Service: Emergency Arrival: 12/28/2024 19:23:18 Discharge: 12/28/2024 22:00:00 LOS: 000 02:37 Checkin: 12/28/2024 19:23:18 Checkout: 12/28/2024 22:00:00 Dispo Type: Eloped EVENTS: Event Name Event Status Request Date/Time Start Date/Time Complete Date/Time Arrive Complete 12/28/2024 19:23:18 12/28/2024 19:23:18 12/28/2024 19:23:18 Document Home Meds Request 12/28/2024 19:23:18 Triage Complete 12/28/2024 19:23:18 12/28/2024 19:33:17 12/28/2024 19:33:17 Bed Assign Complete 12/28/2024 20:11:41 12/28/2024 20:11:41 12/28/2024 20:11:41 Dr Exam Complete 12/28/2024 20:11:41 12/28/2024 21:01:59 12/28/2024 21:01:59 RN Exam Complete 12/28/2024 20:11:41 12/28/2024 20:19:47 12/28/2024 20:19:47 Registration Complete 12/28/2024 21:01:59 12/28/2024 22:26:43 12/28/2024 22:26:43 Meds Admin Complete 12/28/2024 21:15:48 12/28/2024 21:29:34 Reg Complete Request 12/28/2024 22:26:43 Reg Bed Request Complete 12/28/2024 22:26:43 12/28/2024 22:26:43 12/28/2024 22:26:43 Discharge Complete 12/28/2024 22:33:18 12/28/2024 22:33:18 12/28/2024 22:33:18 Transfer Complete 12/28/2024 22:33:18 12/28/2024 22:33:18 12/28/2024 22:33:18 ADDRESS: [address] [place] [id number] [facility] DOC NOTES: MEDICAL INFORMATION: Prescriptions Given: Medications to Continue with No Changes Other Medications cyclobenzaprine (cyclobenzaprine 10 mg Tab) 1 Tablets By Mouth 3 times a day as needed for spasm. Refills: 1. duloxetine (Cymbalta 60 mg oral delayed release capsule) 1 Capsules By Mouth every day. Refills: 5. duloxetine (duloxetine 30 mg oral delayed release capsule) 1 Capsules By Mouth every day. Refills: 11. hydrochlorothiazide (hydrochlorothiazide 25 mg Tab) 1 Tablets By Mouth every day. Refills: 3. hydrOXYzine (hydrOXYzine hydrochloride 25 mg Tab) 25 Milligram By Mouth Once. Refills: 4. ibuprofen (ibuprofen 800 mg Tab) 1 Tablets By Mouth 3 times a day. Refills: 0. Misc Prescription (handicap placard) dispense 1 handicap placard. expires: 11/03/2034. Refills: 0. omeprazole (omeprazole 40 mg Cap-DR) 1 Capsules By Mouth 2 times a day. Refills: 3. ondansetron (Zofran 4 mg Tab) 1 Tablets By Mouth every 8 hours as needed Nausea/Vomiting. Refills: 1. oxycodone (oxyCODONE 10 mg ER Tab) 1 Tablets By Mouth every 12 hours as needed severe pain. tirzepatide (Zepbound 2.5 mg/0.5 mL subcutaneous solution) 2.5 Milligram Subcutaneous every week. Refills: 1. tirzepatide (Zepbound 2.5 mg/0.5 mL subcutaneous solution) 2.5 Milligram Subcutaneous every week. Refills: 3. zolpidem (Ambien 10 mg Tab) 1 Tablets By Mouth once a day (at bedtime) as needed for sleep. Refills: 5. PATIENT EDUCATION INFORMATION: Instructions: Follow up: DIAGNOSIS: Eloped from emergency department; Nausea and vomitingNormalFisher Pollock Medical CenterED Note-Physicianon [id number] Note-PhysicianED Note-Physician Basic Information Time Seen: Robert Taylor PA-C 12/27/2024 14:43 Chief Complaint pt to ER c/o weakness, nausea, and possible surgical incision infection. Pt states that she had a pain pump placed 1 month ago. pt states unknown fevers at home. History of Present Illness 49-year-old female comes to the ED for evaluation of postsurgical pain. She recently had a pain pump implanted to the right lower abdomen a month ago. She presents with some pain at the surgical siteand nausea. No fevers. She is concerned that she may be having an infection and she felt the area was swollen. No vomiting diarrhea constipation. No urinary complaints. Review of Systems A 10 point review of systems is negative except as noted above. Medical and Surgical History: Reviewed and noted Social history: Lives at home Tobacco: Denies Physical Exam Vitals & Measurements T: 36.6 ???C(Oral) HR: 93(Peripheral) RR: 20 BP: 152/97 SpO2: 99% HT: 160 cm WT: 118 kg BMI: 46.09 Nurses notes and vital signs reviewed and patient is not hypoxic. General: The patient appears well, resting comfortably. Skin: Warm, dry. Head: Atraumatic. Neck: No JVD. Eye: Normal conjunctiva. Ears, Nose, Mouth, and Throat: Moist mucous membranes. Cardiovascular: Strong distal pulses. Chest wall: Respiratory: Respirations are nonlabored. Back: Normal range of motion. Musculoskeletal: Normal ROM with no gross deformity. Gastrointestinal: Abdomen is soft throughout. The pain pump is palpable within the subcutaneous tissues of the right lower abdomen. The abdomen itself remains soft. There is no skin changes. No ecchymosis or erythema. Urological: Neurological: Awake and alert. No focal deficits. Follows commands. Psychiatric: Cooperative. Medical Decision Making Patient presents with pain at the site of her pain pump. No skin changes. No fevers. Laboratory studies are reviewed and noted. There is no leukocytosis. Stable blood work. Doubt infectious etiology.Does have a mild hypokalemia and this was replaced orally here. She feels improved after pain medications and is discharged home to follow-up with her PCP and surgeon. Patient was encouraged to return to the ED if symptoms worsen or change. Assessment/Plan Hypokalemia (E87.6: Hypokalemia) Post surgical complication (T81.9XXA: Unspecified complication of procedure, initial encounter) Orders: morphine, 8 mg = 2 mL, Injection, IntraMuscular, Once, Stop date 12/27/24 15:04:00 EDT, STAT, Startdate 12/27/24 15:04:00 EDT, 12/27/24 15:04:00 EDT ondansetron, 4 mg = 1 tab(s), Tab-Dis, Oral, Once, Stop date 12/27/24 15:04:00 EDT, STAT, Start date 12/27/24 15:04:00 EDT, 12/27/24 15:04:00 EDT potassium bicarbonate, 50 mEq = 2 tab(s), Tab-Eff, Oral, Once, Stop date 12/27/24 16:08:00 EDT, STAT, Start date 12/27/24 16:08:00 EDT, 12/27/24 16:08:00 EDT CBC w/ Auto Diff Comprehensive Metabolic Panel eGFR Medications Administered Given morphine 4 mg/mL Inj, 8 mg, IntraMuscular Zofran ODT 4 mg Tab-Dis, 4 mg, Oral Disposition Plan Patient Discharge Condition Disposition: Discharged home Condition: Improved and stable Counseled: Patient and/or family were counseled to workup, results, treatment plan and follow-up recommendations Discharge Prescription List Prescriptions No active prescription medications Follow-up With When Contact Information KRISTANRadha LAU In 3 days 12/30/2024 EDT Additional Instructions: Patient Education Chronic Pain, Adult Hypokalemia Attestation I performed a substantive part of the MDM during the patient???s E/M visit. I personally made or approved the documented management plan and acknowledge its risk of complications. (Independent Interpretation) My (EKG/X-Ray/US/CT) interpretation as above. (Discussion) Management/test interpretation discussed with APC. This report was transcribed using voice recognition software. Every effort was made to ensure accuracy, however, inadvertently computerized bill recapitulation clerk mistakes may be present. Appropriate healthcare PPE was used in evaluating this patient. Problem List/Past Medical History Ongoing Arthritis of first carpometacarpal joint of right hand Bipolar disorder Chronic back pain Chronic hepatitis C Closed fracture of trapezoidal bone of wrist COVID-19 Diarrhea Disease of liver Drug therapy finding Edema Elevated blood pressure reading Encounter for screening mammogram for breast cancer Fatigue HTN (hypertension) Migraine Morbid obesity with BMI of 45.0-49.9, adult Obesity Screening for cardiovascular condition Smoker Smoker Tendonitis of right wrist Weight gain Wellness examination Historical Bipolar Continuous opioid dependence Hepatitis C Liver disease Lyme disease Migraines Procedure/Surgical History Hysterectomy (2010), History of cholecystectomy, Hysterectomy, lap x 7, Tonillectomy with adenoids. Medications Inpatient No active inp (more content not included)...[facility] Comment on above:Result Comment: Electronically Signed By: Robert Taylor PA-C\.br\Date and Time Signed: 12/28/2515:12 EDT\.br\Electronically Co-Signed By: Jorge Mcintosh DO\.br\Date and Time Co-Signed: 12/28/24 07:05 EDTED Patient Education Noteon [id number] Patient Education NoteED Patient Education Note [facility] CenterED Patient Summaryon [id number] Patient SummaryED Patient Summary [place] [id number] Patient Discharge Instructions Person Information Name: JERAD TRACY Age: 49 Years Arrival Date: 12/28/2024 19:23:18 Discharge Diagnosis: Eloped from emergency department; Nausea and vomiting Primary Care Physician: FLOR JONES Provider Information Primary Provider: Advanced Dietetic Intern:Landon Tidwell PA-C The exam and treatment you received in the Emergency Department were for an urgent problem and are not intended as complete care. It is important that you follow up with a doctor, nurse practitioner,or physician???s construction assistant for ongoing care. If your symptoms become worse or you do not improve asexpected and you are unable to reach your usual health care provider, you should return to the Emergency Department. We are available 24 hours a day. JERAD TRACY has been given the following list of patient education materials, prescriptions andfollow-up instructions: Follow-up Instructions: In the event that this physician does not participate in your insurance network, please consult with your insurance company to find a nearby participating provider. Patient Education Materials: A MESSAGE TO ALL PATIENTS REGARDING OPIOIDS PRESCRIPTION OPIOIDS: WHAT YOU NEED TO KNOW Prescription opioids can be used to help relieve nsabtvmc-wr-nhkbfl pain and are often prescribed following a [...] guidance from the Food and Drug Administration (www.fda.gov/Drugs/ResourcesForYou). ??? Visit www.cdc.gov/drugoverdose to learn about the risks of opioids abuse and overdose. ??? If you believe you may be struggling with addiction, tell your health childcare aide and askfor guidance or call [facility]???S National Helpline at 6-185-647-ULKU. v Source: Department of Health and Human Services/ (more content not included)...NormalMarymount HospitalC w/ Auto Diffon 12-27-2024 Basophil Absolute0.0 E9/LNormal0.0-0.2FClermont County HospitalComment on above:Performed By: #### [id number] #### [facility] [address] [place], [place] [address]Ebimtghri/100 WBC (Bld)0.4 %Normal0.0-2.0[facility] HospitalComment on above:Performed By: #### [id number] #### [facility] [address] [place], [place] [address]Fhb Absolute0.2 E9/LNormal0.0-0.5FClermont County Hospital Comment on above:Performed By: #### [id number] #### [facility] [address] [place], [place] [address]Pjrnkwhiomi/100 WBC (Bld)1.7 %Normal0.0-8.0[facility] HospitalComment on above:Performed By: #### [id number] #### [facility] [address] [place], [place] [address]Himpssrzdto distribution width (RBC) [Ratio]14.6 %High10.9-14.2 [facility] HospitalComment on above:Performed By: #### [id number] #### [facility] [address] [place], [place] [address]Hhocyrzvyt (Bld) [Volume fraction]42.0 %Zwcnae68.0-46.0[facility] HospitalComment on above:Performed By: #### [id number] #### [facility] [address] [place], [place] [address]Unrorauvni (Bld) [Mass/Vol]14.3 g/eOHrvnma52.0-16.0[facility] HospitalComment on above:Performed By: #### [id number] #### [facility] [address] [place] [address]Amneq Absolute2.0 E9/LNormal1.0-4.0[facility] Comment on above:Performed By: #### [id number] #### [facility] [address] [place] [address]Omdzodruded/100 WBC (Bld)21.9 %Qzlkkp55.0-50.0[facility] HospitalComment on above:Performed By: #### [id number] #### [facility] [address] [place] [address]RPG (RBC) [Entitic mass]30.2 guMqqhqq53.0-34.0[facility] HospitalComment on above:Performed By: #### [id number] #### [facility] [address] [place] [address]KPJD (RBC) [Mass/Vol]34.0 g/cIPgvnpz39.4-36.0[facility] HospitalComment on above:Performed By: #### [id number] #### [facility] [address] [place] [address]EAG (RBC) [Entitic vol]88.8 hPRsskbf46.0-100.0[facility] HospitalComment on above:Performed By: #### [id number] #### [facility] [address] [place] [address]Evvf Absolute0.6 E9/LNormal0.2-1.0[facility] Comment on above:Performed By: #### [id number] #### [facility] [address] [place] [address]Jxsbvcrcp/100 WBC (Bld)6.1 %Normal4.0-14.0[facility] HospitalComment on above:Performed By: #### [id number] #### [facility] [address], [place] [address]Rismvz Absolute6.4 E9/LNormal2.0-7.5FClermont County Hospital Comment on above:Performed By: #### [id number] #### [facility] [address] [place], [place] [address]Ibtjrl Auto69.9 %Pyavta93.0-75.0[facility] Comment on above:Performed By: #### [id number] #### [facility] [address], [place] [address]Sxrwiekp890.0 E9/UQdgkoe903.0-500.0[facility] Comment on above:Performed By: #### [id number] #### [facility] [address] [place] [address]Kqtpfxqf mean volume (Bld) [Entitic vol]8.1 fLNormal6.4-10.8 [facility] HospitalComment on above:Performed By: #### [id number] #### [facility] [address] [place] [address]THU8.7 E12/LNormal4.3-5.9[facility] HospitalComment on above:Performed By: #### [id number] #### [facility] [address] [place] [address]TGQ9.2 E9/LNormal4.0-11.0[facility] HospitalComment on above:Performed By: #### [id number] #### [facility] [address] [place] [address]FFNct [id number] [Mass/Vol]4.1 g/dLNormal3.3-5.0[facility] HospitalComment on above:Performed By: #### [id number] #### [facility] [address] [place] [address]Hmqeynw/Globulin [Mass ratio]1.2 {ratio}Normal1.1-2.2FClermont County HospitalComment on above:Performed By: #### [id number] #### [facility] [address] [place], [place] [address]Ydf Anra355 Int._Unit/JDgsn85-94FluapkOhiohealth Berger Hospital Comment on above:Performed By: #### [id number] #### [facility] [address], [place] [address]GGY91 Int._Unit/LNormal6-46[facility] HospitalComment on above:Performed By: #### [id number] #### [facility] [address], [place] [address]Ynyri gap [Moles/Vol]12 mmol/LNormal6-16[facility] HospitalComment on above:Performed By: #### [id number] #### [facility] [address] [place], [place] [address]DTI92 Int._Unit/LNormal5-43[facility] HospitalComment on above:Performed By: #### [id number] #### [facility] [address] [place], [place] [address]Ibmp Total0.5 mg/dLNormal0.0-1.1FClermont County Hospital Comment on above:Performed By: #### [id number] #### [facility] [address] [place] [address]IHJ/Creat Ratio14 No HdirnPirieq67-87TarukeOhiohealth Berger HospitalComment on above:Performed By: #### [id number] #### [facility] [address], [place] [address]Tbdkzqh [Mass/Vol]8.8 mg/dLLow8.9-11.1FClermont County HospitalComment on above:Performed By: #### [id number] #### [facility] [address] [place], [place] [address]Hgmhrpkw [Moles/Vol]98 mmol/MRay529-776VvtsxaOhiohealth Berger HospitalComment on above:Performed By: #### [id number] #### [facility] [address] [place] [address], [place] [address]VV0 [Moles/Vol]33 mmol/RDthn30-21SlkgijOhiohealth Berger Hospital Comment on above:Performed By: #### [id number] #### [facility] [address] [place], [place] [address]Idlpnndzfo [Mass/Vol]0.8 mg/dLNormal0.5-1.3FClermont County HospitalComment on above:Performed By: #### [id number] #### [facility] [address] [place], [place] [address]Nqlfuijh (S) [Mass/Vol]3.3 g/dLNormal1.4-4.0[facility] HospitalComment on above:Performed By: #### [id number] #### [facility] [address] [place] [address]Njldaes [Mass/Vol]112 mg/bRUfsify68-126WmslxjOhiohealth Berger HospitalComment on above:Performed By: #### [id number] #### [facility] [address] [place] [address]Eexlbcsuw [Moles/Vol]2.9 mmol/LLow3.5-5.3FClermont County HospitalComment on above:Performed By: #### [id number] #### [facility] [address] [place] [address]Ohctgit [Mass/Vol]7.4 g/dLNormal6.0-7.8[facility] HospitalComment on above:Performed By: #### [id number] #### [facility] [address] [place] [address]Tcagrl [Moles/Vol]140 mmol/IPfylyk214-268EwiddqOhiohealth Berger HospitalComment on above:Performed By: #### [id number] #### [facility] [address] [place] [address]Qphg nitrogen [Mass/Vol]11 mg/dLNormal5-21[facility] HospitalComment on above:Performed By: #### [id number] #### [facility] [address] [place] [address]ZV Clinical Summaryon [id number] Clinical SummaryED Clinical Summary [address] [address] ED Clinical Summary Person Information Name: JERAD TRACY [place] Age: 49 Years : 1975 Sex: Female Language: Malagasy PCP: FLOR JONES Marital Status: Visit Id: Visit Reason: Weakness or fatigue; Nausea; Post surgical problem; POSS FLUID RETENTION Speciality: Acuity: 3 Enc Type: Emergency Med Service: Emergency Arrival: 12/27/2024 14:25:47 Discharge: 12/27/2024 16:17:48 LOS: 000 01:52 Checkin: 12/27/2024 14:25:47 Checkout: 12/27/2024 16:17:48 Dispo Type: Home (Routine DC) EVENTS: Event Name Event Status Request Date/Time Start Date/Time Complete Date/Time Arrive Complete 12/27/2024 14:25:47 12/27/2024 14:25:47 12/27/2024 14:25:47 Document Home Meds Request 12/27/2024 14:25:47 Triage Complete 12/27/2024 14:25:47 12/27/2024 14:31:06 12/27/2024 14:31:06 Bed Assign Complete 12/27/2024 14:26:56 12/27/2024 14:26:56 12/27/2024 14:26:56 Dr Exam Complete 12/27/2024 14:26:56 12/27/2024 14:43:48 12/27/2024 14:43:48 RN Exam Complete 12/27/2024 14:26:56 12/27/2024 14:40:58 12/27/2024 14:40:58 Registration Complete 12/27/2024 14:27:31 12/27/2024 14:27:31 12/27/2024 14:27:31 Reg Complete Request 12/27/2024 14:27:31 Reg Bed Request Complete 12/27/2024 14:27:31 12/27/2024 14:27:31 12/27/2024 14:27:31 EKG Complete 12/27/2024 14:30:01 12/27/2024 14:33:54 Registration Request 12/27/2024 14:43:48 Dr Exam Complete 12/27/2024 14:50:48 12/27/2024 14:50:48 12/27/2024 14:50:48 Meds Admin Complete 12/27/2024 15:04:50 12/27/2024 15:11:18 Pending Labs Complete 12/27/2024 15:04:50 12/27/2024 15:50:12 Lab Complete 12/27/2024 15:04:50 12/27/2024 15:50:12 Pending Labs Complete 12/27/2024 15:25:50 12/27/2024 15:25:50 12/27/2024 15:50:12 Lab Complete 12/27/2024 15:25:50 12/27/2024 15:25:50 12/27/2024 15:50:12 Meds Admin Complete 12/27/2024 16:08:25 12/27/2024 16:15:21 Discharge Complete 12/27/2024 16:11:32 12/27/2024 16:17:53 12/27/2024 16:17:53 Transfer Complete 12/27/2024 16:17:53 12/27/2024 16:17:53 12/27/2024 16:17:53 ADDRESS: [facility] [id number] [facility] DOC NOTES: MEDICAL INFORMATION: Prescriptions Given: Medications to Continue with No Changes Other Medications cyclobenzaprine (cyclobenzaprine 10 mg Tab) 1 Tablets By Mouth 3 times a day as needed for spasm. Refills: 1. duloxetine (Cymbalta 60 mg oral delayed release capsule) 1 Capsules By Mouth every day. Refills: 5. duloxetine (duloxetine 30 mg oral delayed release capsule) 1 Capsules By Mouth every day. Refills: 11. hydrochlorothiazide (hydrochlorothiazide 25 mg Tab) 1 Tablets By Mouth every day. Refills: 3. hydrOXYzine (hydrOXYzine hydrochloride 25 mg Tab) 25 Milligram By Mouth Once. Refills: 4. ibuprofen (ibuprofen 800 mg Tab) 1 Tablets By Mouth 3 times a day. Refills: 0. Misc Prescription (handicap placard) dispense 1 handicap placard. expires: 11/03/2034. Refills: 0. omeprazole (omeprazole 40 mg Cap-DR) 1 Capsules By Mouth 2 times a day. Refills: 3. ondansetron (Zofran 4 mg Tab) 1 Tablets By Mouth every 8 hours as needed Nausea/Vomiting. Refills: 1. oxycodone (oxyCODONE 10 mg ER Tab) 1 Tablets By Mouth every 12 hours as needed severe pain. tirzepatide (Zepbound 2.5 mg/0.5 mL subcutaneous solution) 2.5 Milligram Subcutaneous every week. Refills: 1. tirzepatide (Zepbound 2.5 mg/0.5 mL subcutaneous solution) 2.5 Milligram Subcutaneous every week. Refills: 3. zolpidem (Ambien 10 mg Tab) 1 Tablets By Mouth once a day (at bedtime) as needed for sleep. Refills: 5. PATIENT EDUCATION INFORMATION: Instructions: Chronic Pain, Adult; Hypokalemia Follow up: With: Address: When: KRISTAN LAU In 3 days 12/30/2024 DIAGNOSIS: Hypokalemia; [facility] Patient Summaryon [id number] Patient SummaryED Patient Summary [place] [address] Patient Discharge Instructions Person Information Name: JERAD TRACY Age: 49 Years Arrival Date: 12/27/2024 14:25:47 Discharge Diagnosis: Hypokalemia; Post surgical complication Primary Care Physician: FLOR JONES Provider Information Primary Provider: Jorge Mcintosh DO Advanced Dietetic Intern:Robert Taylor PA-C The exam and treatment you received in the Emergency Department were for an urgent problem and are not intended as complete care. It is important that you follow up with a doctor, nurse practitioner,or physician???s construction assistant for ongoing care. If your symptoms become worse or you do not improve asexpected and you are unable to reach your usual health care provider, you should return to the Emergency Department. We are available 24 hours a day. JERAD TRACY has been given the following list of patient education materials, prescriptions andfollow-up instructions: Follow-up Instructions: With: Address: When: KRISTAN LAU In 3 days 12/30/2024 In the event that this physician does not participate in your insurance network, please consult with your insurance company to find a nearby participating provider. Patient Education Materials: Chronic Pain, Adult; Hypokalemia A MESSAGE TO ALL PATIENTS REGARDING OPIOIDS PRESCRIPTION OPIOIDS: WHAT YOU NEED TO KNOW Prescription opioids can be used to help relieve jofehnzq-yt-rofgzz pain and are often prescribed following a [...] guidance from the Food and Drug Administration (www.fda.gov/Drugs/ResourcesForYou). ??? Visit www.cdc.gov/drugoverdose to learn about the risks of opioids abuse and overdose. ??? If you believe you may be struggling with addiction, tell your health childcare aide and askfor guidance or call [facility] (more content not included)... NormalOhiohealth Berger HospitaleGFRon [id number] mL/min/1.73 h5Gqvrnv >=59Ohiohealth Berger HospitalComment on above:Performed By: #### [id number] #### [facility] [address] [place] [id number] Clinical Summaryon [id number] Clinical SummaryED Clinical Summary [address] [address] ED Clinical Summary Person Information Name: JERAD TRACY/[place] Age: 49 Years : 1975 Sex: Female Language: Malagasy PCP: FLOR JONES Marital Status: Visit Id: Visit Reason: Back pain; LOWER BACK PAIN Speciality: Acuity: 4 Enc Type: Emergency Med Service: Emergency Arrival: 12/21/2024 16:21:38 Discharge: 12/21/2024 17:24:58 LOS: 000 01:03 Checkin: 12/21/2024 16:21:38 Checkout: 12/21/2024 17:24:58 Dispo Type: Home (Routine DC) EVENTS: Event Name Event Status Request Date/Time Start Date/Time Complete Date/Time Arrive Complete 12/21/2024 16:21:38 12/21/2024 16:21:38 12/21/2024 16:21:38 Document Home Meds Request 12/21/2024 16:21:38 Triage Complete 12/21/2024 16:21:38 12/21/2024 16:25:57 12/21/2024 16:25:57 Bed Assign Complete 12/21/2024 16:23:24 12/21/2024 16:23:24 12/21/2024 16:23:24 Dr Exam Complete 12/21/2024 16:23:24 12/21/2024 16:24:21 12/21/2024 16:24:21 RN Exam Complete 12/21/2024 16:23:24 12/21/2024 16:30:34 12/21/2024 16:30:34 Registration Complete 12/21/2024 16:24:21 12/21/2024 16:36:03 12/21/2024 16:36:03 Dr Exam Complete 12/21/2024 16:27:15 12/21/2024 16:27:15 12/21/2024 16:27:15 Reg Complete Request 12/21/2024 16:36:03 Reg Bed Request Complete 12/21/2024 16:36:03 12/21/2024 16:36:03 12/21/2024 16:36:03 Meds Admin Complete 12/21/2024 17:05:32 12/21/2024 17:17:32 Discharge Complete 12/21/2024 17:06:18 12/21/2024 17:25:04 12/21/2024 17:25:04 Transfer Complete 12/21/2024 17:25:04 12/21/2024 17:25:04 12/21/2024 17:25:04 ADDRESS: [address] [facility] [id number] PHYS DOC NOTES: MEDICAL INFORMATION: Prescriptions Given: Medications to Continue with No Changes Other Medications cyclobenzaprine (cyclobenzaprine 10 mg Tab) 1 Tablets By Mouth 3 times a day as needed for spasm. Refills: 1. duloxetine (Cymbalta 60 mg oral delayed release capsule) 1 Capsules By Mouth every day. Refills: 5. duloxetine (duloxetine 30 mg oral delayed release capsule) 1 Capsules By Mouth every day. Refills: 11. hydrochlorothiazide (hydrochlorothiazide 25 mg Tab) 1 Tablets By Mouth every day. Refills: 3. hydrOXYzine (hydrOXYzine hydrochloride 25 mg Tab) 25 Milligram By Mouth Once. Refills: 4. ibuprofen (ibuprofen 800 mg Tab) 1 Tablets By Mouth 3 times a day. Refills: 0. Misc Prescription (handicap placard) dispense 1 handicap placard. expires: 11/03/2034. Refills: 0. omeprazole (omeprazole 40 mg Cap-DR) 1 Capsules By Mouth 2 times a day. Refills: 3. ondansetron (Zofran 4 mg Tab) 1 Tablets By Mouth every 8 hours as needed Nausea/Vomiting. Refills: 1. oxycodone (oxyCODONE 10 mg ER Tab) 1 Tablets By Mouth every 12 hours as needed severe pain. tirzepatide (Zepbound 2.5 mg/0.5 mL subcutaneous solution) 2.5 Milligram Subcutaneous every week. Refills: 1. tirzepatide (Zepbound 2.5 mg/0.5 mL subcutaneous solution) 2.5 Milligram Subcutaneous every week. Refills: 3. zolpidem (Ambien 10 mg Tab) 1 Tablets By Mouth once a day (at bedtime) as needed for sleep. Refills: 5. PATIENT EDUCATION INFORMATION: Instructions: Chronic Back Pain Follow up: With: Address: When: KRISTAN LAU [address] [place] [address] Business (1) In 3 days 12/24/2024 DIAGNOSIS: Chronic back pain; Other chronic painNormalFisher Pollock Medical CenterED Note-Physicianon [id number] Note-PhysicianED Note-Physician Basic Information Time Seen: Robert Taylor PA-C 12/21/2024 16:24 Chief Complaint pt states has pain pump, states is working well but over did it and cleaned the boyle. hurting now. History of Present Illness 49-year-old female comes to the ED for evaluation of back pain she has a longstanding history of chronic back pain, does follow with pain management. Does have an implanted pain pump. She presents today with acute on chronic pain that she attributes to recent increase of physical activity. States she was doing a lot of housework and feels that she overdid it, she now is having generalized pain across the back. No associated paresthesias or saddle anesthesia. No lower extremity weakness. No bowel or bladder incontinence or retention. No dysuria or hematuria. No associated abdominal pain, nausea, vomiting, fever or chills. Review of Systems A 10 point review of systems is negative except as noted above. Medical and Surgical History: Reviewed and noted Social history: Lives at home Tobacco: Denies Physical Exam Vitals & Measurements HR: 108(Peripheral) RR: 20 BP: 130/90 SpO2: 99% HT: 160 cm WT: 118 kg BMI: 46.09 Nurses notes and vital signs reviewed and patient is not hypoxic. General: Awake, alert, well-appearing Skin: Warm, dry. Head: Atraumatic. Neck: No JVD. Eye: Normal conjunctiva. Ears, Nose, Mouth, and Throat: Moist mucous membranes. Cardiovascular: Strong distal pulses. Chest wall: Respiratory: Respirations are nonlabored. Back: Normal range of motion. Musculoskeletal: Normal ROM with no gross deformity. Gastrointestinal: Urological: Neurological: Awake and alert. No focal deficits. Follows commands. Psychiatric: Cooperative. Medical Decision Making Patient presents acute on chronic back pain. Longstanding history of back pain. No concerning findings on examination. No evidence of neurovascular compromise. No difficulty with ambulation. She is medicated here and discharged to follow-up with her pain management team. Patient was encouraged to return to the ED if symptoms worsen or change. Assessment/Plan Chronic back pain (M54.9: Dorsalgia, unspecified) Other chronic pain (G89.29: Other chronic pain) Orders: morphine, 8 mg = 2 mL, Injection, IntraMuscular, Once, Stop date 12/21/24 17:05:00 EDT, STAT, Startdate 12/21/24 17:05:00 EDT, 12/21/24 17:05:00 EDT Disposition Plan Patient Discharge Condition Disposition: Discharged home Condition: Improved and stable Counseled: Patient and/or family were counseled to workup, results, treatment plan and follow-up recommendations Discharge Prescription List Prescriptions No active prescription medications Follow-up With When Contact Information KRISTAN LAU In 3 days 12/24/2024 EDT [address] [place] [address] Business (1) Additional Instructions: Patient Education Chronic Back Pain Attestation I performed a substantive part of the MDM during the patient???s E/M visit. I personally made or approved the documented management plan and acknowledge its risk of complications. (Independent Interpretation) My (EKG/X-Ray/US/CT) interpretation as above. (Discussion) Management/test interpretation discussed with APC. This report was transcribed using voice recognition software. Every effort was made to ensure accuracy, however, inadvertently computerized bill recapitulation clerk mistakes may be present. Appropriate healthcare PPE was used in evaluating this patient. Problem List/Past Medical History Ongoing Arthritis of first carpometacarpal joint of right hand Bipolar disorder Chronic back pain Chronic hepatitis C Closed fracture of trapezoidal bone of wrist COVID-19 Diarrhea Disease of liver Drug therapy finding Edema Elevated blood pressure reading Encounter for screening mammogram for breast cancer Fatigue HTN (hypertension) Migraine Morbid obesity with BMI of 45.0-49.9, adult Obesity Screening for cardiovascular condition Smoker Smoker Tendonitis of right wrist Weight gain Wellness examination Historical Bipolar Continuous opioid dependence Hepatitis C Liver disease Lyme disease Migraines Procedure/Surgical History Hysterectomy (2010), History of cholecystectomy, Hysterectomy, lap x 7, Tonillectomy with adenoids. Medications Inpatient No active inpatient medications Home Ambien 10 mg Tab, 10 mg= 1 tab(s), Oral, Once a day (at bedtime), PRN, 5 refills cyclobenzaprine 10 mg Tab, 10 mg= 1 tab(s), Oral, TID, PRN, 1 refills Cymbalta 60 mg oral delayed release capsule, 60 mg= 1 cap(s), Oral, Daily, 5 refills duloxetine 30 mg oral delayed release capsule, 30 mg= 1 cap(s), Oral, Daily, 11 refills handicap placard, See Instructions hydrochlorothiazide 25 mg Tab, 25 mg= 1 tab(s), Oral, Daily, 3 refills hydrOXYzine hydrochloride 25 mg Tab, 25 mg, Oral, Once, 4 refills ibuprofen 800 mg Tab, 800 mg= 1 tab(s), Oral, TID om (more content not included)...[facility] HospitalComment on above:Result Comment: Electronically Signed By: Robert Taylor PA-C\.br\Date and Time Signed: 12/21/2516:15 EDT\.br\Electronically Co-Signed By: Jorge Mcintosh DO\.br\Date and Time Co-Signed: 12/21/24 18:06 EDTED Patient Summaryon [id number] Patient SummaryED Patient Summary [place] [address] Patient Discharge Instructions Person Information Name: JERAD TRACY Age: 49 Years Arrival Date: 12/21/2024 16:21:38 Discharge Diagnosis: Chronic back pain; Other chronic pain Primary Care Physician: FLOR JONES Provider Information Primary Provider: Jorge Mcintosh DO Advanced Dietetic Intern:Robert Taylor PA-C The exam and treatment you received in the Emergency Department were for an urgent problem and are not intended as complete care. It is important that you follow up with a doctor, nurse practitioner,or physician???s construction assistant for ongoing care. If your symptoms become worse or you do not improve asexpected and you are unable to reach your usual health care provider, you should return to the Emergency Department. We are available 24 hours a day. JERAD TRACY has been given the following list of patient education materials, prescriptions andfollow-up instructions: Follow-up Instructions: With: Address: When: KRISTAN LAU [address] [place] [address] Business (1) In 3 days 12/24/2024 In the event that this physician does not participate in your insurance network, please consult with your insurance company to find a nearby participating provider. Patient Education Materials: Chronic Back Pain A MESSAGE TO ALL PATIENTS REGARDING OPIOIDS PRESCRIPTION OPIOIDS: WHAT YOU NEED TO KNOW Prescription opioids can be used to help relieve reqgtyme-hn-svxtmv pain and are often prescribed following a [...] guidance from the Food and Drug Administration (www.fda.gov/Drugs/ResourcesForYou). ??? Visit www.cdc.gov/drugoverdose to learn about the risks of opioids abuse and overdose. ??? If you believe you may be struggling with addiction, tell your health (more content not included)...[facility] CenterED Note-Physicianon [id number] Note-PhysicianED Note-Physician Basic Information No qualifying data available. Chief Complaint patient c/o chronic lower back pain. thinks pain pump is not working. sees pain management tomorrow Physical Exam Vitals & Measurements T: 36.7 ???C(Oral) HR: 102(Peripheral) RR: 18 BP: 137/91 SpO2: 100% HT: 160 cm WT: 118 kg BMI: 46.09 Medical Decision Making The patient left without being seen. Assessment/Plan Patient left without being seen (Z53.21: Procedure and treatment not carried out due to patient leaving prior to being seen by health care provider) Disposition Plan Discharge Prescription List Prescriptions No active prescription medications Follow-up No qualifying data available Problem List/Past Medical History Ongoing Arthritis of first carpometacarpal joint of right hand Bipolar disorder Chronic back pain Chronic hepatitis C Closed fracture of trapezoidal bone of wrist COVID-19 Diarrhea Disease of liver Drug therapy finding Edema Elevated blood pressure reading Encounter for screening mammogram for breast cancer Fatigue HTN (hypertension) Migraine Morbid obesity with BMI of 45.0-49.9, adult Obesity Screening for cardiovascular condition Smoker Smoker Tendonitis of right wrist Weight gain Wellness examination Historical Bipolar Continuous opioid dependence Hepatitis C Liver disease Lyme disease Migraines Procedure/Surgical History Hysterectomy (2010), History of cholecystectomy, Hysterectomy, lap x 7, Tonillectomy with adenoids. Medications Inpatient No active inpatient medications Home Ambien 10 mg Tab, 10 mg= 1 tab(s), Oral, Once a day (at bedtime), PRN, 5 refills cyclobenzaprine 10 mg Tab, 10 mg= 1 tab(s), Oral, TID, PRN, 1 refills Cymbalta 60 mg oral delayed release capsule, 60 mg= 1 cap(s), Oral, Daily, 5 refills duloxetine 30 mg oral delayed release capsule, 30 mg= 1 cap(s), Oral, Daily, 11 refills handicap placard, See Instructions hydrochlorothiazide 25 mg Tab, 25 mg= 1 tab(s), Oral, Daily, 3 refills hydrOXYzine hydrochloride 25 mg Tab, 25 mg, Oral, Once, 4 refills ibuprofen 800 mg Tab, 800 mg= 1 tab(s), Oral, TID omeprazole 40 mg Cap-DR, 40 mg= 1 cap(s), Oral, BID, 3 refills oxyCODONE 10 mg ER Tab, 10 mg= 1 tab(s), Oral, q12hr, PRN Zepbound 2.5 mg/0.5 mL subcutaneous solution, 2.5 mg, SubCutaneous, qWeek, 3 refills Zepbound 2.5 mg/0.5 mL subcutaneous solution, 2.5 mg, SubCutaneous, qWeek, 1 refills Zofran 4 mg Tab, 4 mg= 1 tab(s), Oral, q8hr, PRN, 1 refills Allergies Lyrica (Makes legs swell) Tylenol (Unknown) Vicodin (Hives) gabapentin (Migraines) nabumetone (Rash) penicillin (Hives) Social History Alcohol - Denies Alcohol Use, 07/10/2012 Never., 06/18/2024 Substance Abuse - Denies Substance Abuse, 07/10/2012 Never., 06/18/2024 Past, Cocaine, 07/17/2023 Tobacco - High Risk, 12/07/2022 5-9 cigarettes (between 1/4 to 1/2 pack)/day in last 30 days Tobacco Use:. Never Smokeless Tobacco Use:. Cigarettes, Ready to change: Yes. Household tobacco concerns: Yes. Yes, 11/03/2024 10 or more cigarettes (1/2 pack or more)/day in last 30 days Tobacco Use:. Ready to change: No., 07/21/2024 10 or more cigarettes (1/2 pack or more)/day in last 30 days Tobacco Use:., 03/18/2024 Family History Acute myocardial infarction: Father. Alcoholism: Father. Anxiety: Mother. Cancer: Father and Grandparent. Depression: Mother. Diabetes mellitus: Grandparent. Drug addiction: Sister. Hypertension: Mother. Lab Results No qualifying data available. Diagnostic Results No qualifying data available.[facility] HospitalComment on above: Result Comment: Electronically Signed By: Landon Tidwell PA-C\.br\Date and Time Signed: 12/16/2516:36 EDT\.br\Electronically Co-Signed By: Cameron Rene DO\.br\Date and Time Co-Signed: 12/18/24 08:15 EDTED Clinical Summaryon [id number] Clinical SummaryED Clinical Summary [place] [address] ED Clinical Summary Person Information Name: JERAD TRACY [place] Age: 49 Years : 1975 Sex: Female Language: Malagasy PCP: FLOR JONES Marital Status: Visit Id: Visit Reason: Back pain; BACK PAIN Speciality: Acuity: 4 Enc Type: Emergency Med Service: Emergency Arrival: 12/16/2024 13:15:06 Discharge: 12/16/2024 14:19:30 LOS: 000 01:04 Checkin: 12/16/2024 13:15:06 Checkout: 12/16/2024 14:19:30 Dispo Type: Left Without Being Seen EVENTS: Event Name Event Status Request Date/Time Start Date/Time Complete Date/Time Arrive Complete 12/16/2024 13:15:06 12/16/2024 13:15:06 12/16/2024 13:15:06 Document Home Meds Request 12/16/2024 13:15:06 Triage Complete 12/16/2024 13:15:06 12/16/2024 13:20:24 12/16/2024 13:20:24 Registration Complete 12/16/2024 13:16:34 12/16/2024 13:16:34 12/16/2024 13:16:34 Reg Complete Request 12/16/2024 13:16:34 Reg Bed Request Complete 12/16/2024 13:16:34 12/16/2024 13:16:34 12/16/2024 13:16:34 Discharge Complete 12/16/2024 14:19:44 12/16/2024 14:19:44 12/16/2024 14:19:44 Transfer Complete 12/16/2024 14:19:44 12/16/2024 14:19:44 12/16/2024 14:19:44 ADDRESS: [address] [place] [phone] PHYS DOC NOTES: MEDICAL INFORMATION: Prescriptions Given: Medications to Continue with No Changes Other Medications cyclobenzaprine (cyclobenzaprine 10 mg Tab) 1 Tablets By Mouth 3 times a day as needed for spasm. Refills: 1. duloxetine (Cymbalta 60 mg oral delayed release capsule) 1 Capsules By Mouth every day. Refills: 5. duloxetine (duloxetine 30 mg oral delayed release capsule) 1 Capsules By Mouth every day. Refills: 11. hydrochlorothiazide (hydrochlorothiazide 25 mg Tab) 1 Tablets By Mouth every day. Refills: 3. hydrOXYzine (hydrOXYzine hydrochloride 25 mg Tab) 25 Milligram By Mouth Once. Refills: 4. ibuprofen (ibuprofen 800 mg Tab) 1 Tablets By Mouth 3 times a day. Refills: 0. Misc Prescription (handicap placard) dispense 1 handicap placard. expires: 11/03/2034. Refills: 0. omeprazole (omeprazole 40 mg Cap-DR) 1 Capsules By Mouth 2 times a day. Refills: 3. ondansetron (Zofran 4 mg Tab) 1 Tablets By Mouth every 8 hours as needed Nausea/Vomiting. Refills: 1. oxycodone (oxyCODONE 10 mg ER Tab) 1 Tablets By Mouth every 12 hours as needed severe pain. tirzepatide (Zepbound 2.5 mg/0.5 mL subcutaneous solution) 2.5 Milligram Subcutaneous every week. Refills: 1. tirzepatide (Zepbound 2.5 mg/0.5 mL subcutaneous solution) 2.5 Milligram Subcutaneous every week. Refills: 3. zolpidem (Ambien 10 mg Tab) 1 Tablets By Mouth once a day (at bedtime) as needed for sleep. Refills: 5. PATIENT EDUCATION INFORMATION: Instructions: Follow [facility]: [facility] Patient Education Noteon [id number] Patient Education NoteED Patient Education NoteNormValley Presbyterian Hospital Medical CenterED Patient Summaryon [id number] Patient SummaryED Patient Summary [place] [address] Patient Discharge Instructions Person Information Name: JERAD TRACY Age: 49 Years Arrival Date: 12/16/2024 13:15:06 Discharge Diagnosis: Primary Care Physician: FLOR JONES Provider Information Primary Provider: Advanced Dietetic Intern:None The exam and treatment you received in the Emergency Department were for an urgent problem and are not intended as complete care. It is important that you follow up with a doctor, nurse practitioner,or physician???s construction assistant for ongoing care. If your symptoms become worse or you do not improve asexpected and you are unable to reach your usual health care provider, you should return to the Emergency Department. We are available 24 hours a day. JERAD TRACY has been given the following list of patient education materials, prescriptions andfollow-up instructions: Follow-up Instructions: In the event that this physician does not participate in your insurance network, please consult with your insurance company to find a nearby participating provider. Patient Education Materials: A MESSAGE TO ALL PATIENTS REGARDING OPIOIDS PRESCRIPTION OPIOIDS: WHAT YOU NEED TO KNOW Prescription opioids can be used to help relieve ipkmdjua-tz-dxzthr pain and are often prescribed following a [...] guidance from the Food and Drug Administration (www.fda.gov/Drugs/ResourcesForYou). ??? Visit www.cdc.gov/drugoverdose to learn about the risks of opioids abuse and overdose. ??? If you believe you may be struggling with addiction, tell your health childcare aide and askfor guidance or call [facility]???S National Helpline at 8-237-936-MUNP. v Source: [place] Department of Health and Human Services/Center for Disease Control & Prevention [facility] (more content not included)...[facility] Clinical Summaryon [id number] Clinical SummaryED Clinical Summary [place] [id number] ED Clinical Summary Person Information Name: JERAD TRACY [place] Age: 49 Years : 1975 Sex: Female Language: Malagasy PCP: FLOR JONES Marital Status: Visit Id: Visit Reason: Post surgical problem; Back pain; BACK PAIN, POST SURGICAL ISSUE Speciality: Acuity: 3 Enc Type: Emergency Med Service: Emergency Arrival: 12/06/2024 14:57:07 Discharge: 12/06/2024 15:41:20 LOS: 000 00:44 Checkin: 12/06/2024 14:57:07 Checkout: 12/06/2024 15:41:20 Dispo Type: Home (Routine DC) EVENTS: Event Name Event Status Request Date/Time Start Date/Time Complete Date/Time Arrive Complete 12/06/2024 14:57:07 12/06/2024 14:57:07 12/06/2024 14:57:07 Document Home Meds Request 12/06/2024 14:57:07 Triage Complete 12/06/2024 14:57:07 12/06/2024 15:04:10 12/06/2024 15:04:10 Registration Complete 12/06/2024 14:59:57 12/06/2024 14:59:57 12/06/2024 14:59:57 Reg Complete Request 12/06/2024 14:59:57 Reg Bed Request Complete 12/06/2024 14:59:57 12/06/2024 14:59:57 12/06/2024 14:59:57 Bed Assign Complete 12/06/2024 15:00:06 12/06/2024 15:00:06 12/06/2024 15:00:06 Dr Exam Complete 12/06/2024 15:00:06 12/06/2024 15:00:54 12/06/2024 15:00:54 RN Exam Complete 12/06/2024 15:00:06 12/06/2024 15:19:44 12/06/2024 15:19:44 Registration Request 12/06/2024 15:00:54 Meds Admin Complete 12/06/2024 15:08:59 12/06/2024 15:18:26 Discharge Complete 12/06/2024 15:09:36 12/06/2024 15:41:25 12/06/2024 15:41:25 Transfer Complete 12/06/2024 15:41:25 12/06/2024 15:41:25 12/06/2024 15:41:25 ADDRESS: [address] [place] [phone] PHYS DOC NOTES: MEDICAL INFORMATION: Prescriptions Given: Medications to Continue with No Changes Other Medications cyclobenzaprine (cyclobenzaprine 10 mg Tab) 1 Tablets By Mouth 3 times a day as needed for spasm. Refills: 1. duloxetine (Cymbalta 60 mg oral delayed release capsule) 1 Capsules By Mouth every day. Refills: 5. duloxetine (duloxetine 30 mg oral delayed release capsule) 1 Capsules By Mouth every day. Refills: 11. hydrochlorothiazide (hydrochlorothiazide 25 mg Tab) 1 Tablets By Mouth every day. Refills: 3. hydrOXYzine (hydrOXYzine hydrochloride 25 mg Tab) 25 Milligram By Mouth Once. Refills: 4. ibuprofen (ibuprofen 800 mg Tab) 1 Tablets By Mouth 3 times a day. Refills: 0. Misc Prescription (handicap placard) dispense 1 handicap placard. expires: 11/03/2034. Refills: 0. omeprazole (omeprazole 40 mg Cap-DR) 1 Capsules By Mouth 2 times a day. Refills: 3. ondansetron (Zofran 4 mg Tab) 1 Tablets By Mouth every 8 hours as needed Nausea/Vomiting. Refills: 1. oxycodone (oxyCODONE 10 mg ER Tab) 1 Tablets By Mouth every 12 hours as needed severe pain. tirzepatide (Zepbound 2.5 mg/0.5 mL subcutaneous solution) 2.5 Milligram Subcutaneous every week. Refills: 1. tirzepatide (Zepbound 2.5 mg/0.5 mL subcutaneous solution) 2.5 Milligram Subcutaneous every week. Refills: 3. zolpidem (Ambien 10 mg Tab) 1 Tablets By Mouth once a day (at bedtime) as needed for sleep. Refills: 5. PATIENT EDUCATION INFORMATION: Instructions: Chronic Pain, Adult Follow up: With: Address: When: pain management In 3 days 12/09/2024 With: Address: When: KRISTAN LAU In 3 days DIAGNOSIS: 1:Chronic painNormalFisher Pollock Medical CenterED Note-Physicianon [id number] Note-PhysicianED Note-Physician Basic Information Time Seen: Cameron Rene DO 12/06/2024 15:00 Chief Complaint recent back surgery for pain pump. red and warm . History of Present Illness Patient is a 49-year-old female history of chronic pain status post intrathecal pain pump placed onSeptember 5. Patient follows with pain management and is here for pain at the incision site. She was concerned that it could be infected. Denies any fevers or chills or nausea vomiting. She was recently prescribed 90 5 mg oxycodone tablets on 11/24. She states she is out of them because she has been doubling up. States that her doctor told her to do this for pain. She is here on the and forpain. Review of Systems Constitutional: no fever, no chills, no sweats, no weakness HEENT: no sore throat, ear pain, sinus congestion Respiratory: no SOB, no cough, no orthopnea, no wheezing Cardiovascular: no chest pain, no palpitations, no edema Abdomen: no pain, distension, no n/v or diarrhea Extremities: no swelling Neurological: no dizziness, confusion, headache Additional ROS info: Except as noted above in the above review of systems and in the history of present illness all other systems have been reviewed and are negative or noncontributory Physical Exam Vitals & Measurements T: 36.7 ???C(Oral) HR: 114(Peripheral) RR: 20 BP: 147/89 SpO2: 97% HT: 160 cm WT: 118 kg BMI: 46.09 Constitutional: No acute distress, nontoxic, non ill appearing Heart: Regular rate and rhythm without murmurs, gallops or rubs Lungs: clear to auscultation bilaterally without wheezes, rales or rhonchi Abdomen: soft, nontender, nondistended abdomen Extremities: warm and dry bilaterally without pitting edema Skin: Incision site is clean and dry, healing well, no surrounding erythema or purulent discharge. Mildly tender to palpation. Neurological: awake, alert answers questions appropriately Medical Decision Making Patient was given IM morphine for pain. She is going to call her doctor tomorrow for refill of painmedication. She can take Motrin as needed for pain. Patient was discharged home. Assessment/Plan 1. Chronic pain (G89.29: Other chronic pain) Orders: morphine, 4 mg = 1 mL, Injection, IntraMuscular, Once, Stop date 12/06/24 15:08:00 EDT, STAT, Startdate 12/06/24 15:08:00 EDT, 12/06/24 15:08:00 EDT Disposition Plan Discharge Prescription List Prescriptions No active prescription medications Follow-up With When Contact Information pain management In 3 days 12/09/2024 EDT Additional Instructions: KRISTAN LAU In 3 days Additional Instructions: Patient Education Chronic Pain, Adult Problem List/Past Medical History Ongoing Arthritis of first carpometacarpal joint of right hand Bipolar disorder Chronic back pain Chronic hepatitis C Closed fracture of trapezoidal bone of wrist COVID-19 Diarrhea Disease of liver Drug therapy finding Edema Elevated blood pressure reading Encounter for screening mammogram for breast cancer Fatigue HTN (hypertension) Migraine Morbid obesity with BMI of 45.0-49.9, adult Obesity Screening for cardiovascular condition Smoker Smoker Tendonitis of right wrist Weight gain Wellness examination Historical Bipolar Continuous opioid dependence Hepatitis C Liver disease Lyme disease Migraines Procedure/Surgical History Hysterectomy (2010), History of cholecystectomy, Hysterectomy, lap x 7, Tonillectomy with adenoids. Medications Inpatient morphine 4 mg/mL Inj, 4 mg= 1 mL, IntraMuscular, Once Home Ambien 10 mg Tab, 10 mg= 1 tab(s), Oral, Once a day (at bedtime), PRN, 5 refills cyclobenzaprine 10 mg Tab, 10 mg= 1 tab(s), Oral, TID, PRN, 1 refills Cymbalta 60 mg oral delayed release capsule, 60 mg= 1 cap(s), Oral, Daily, 5 refills duloxetine 30 mg oral delayed release capsule, 30 mg= 1 cap(s), Oral, Daily, 11 refills handicap placard, See Instructions hydrochlorothiazide 25 mg Tab, 25 mg= 1 tab(s), Oral, Daily, 3 refills hydrOXYzine hydrochloride 25 mg Tab, 25 mg, Oral, Once, 4 refills ibuprofen 800 mg Tab, 800 mg= 1 tab(s), Oral, TID omeprazole 40 mg Cap-DR, 40 mg= 1 cap(s), Oral, BID, 3 refills oxyCODONE 10 mg ER Tab, 10 mg= 1 tab(s), Oral, q12hr, PRN Zepbound 2.5 mg/0.5 mL subcutaneous solution, 2.5 mg, SubCutaneous, qWeek, 3 refills Zepbound 2.5 mg/0.5 mL subcutaneous solution, 2.5 mg, SubCutaneous, qWeek, 1 refills Zofran 4 mg Tab, 4 mg= 1 tab(s), Oral, q8hr, PRN, 1 refills Allergies Lyrica (Makes legs swell) Tylenol (Unknown) Vicodin (Hives) gabapentin (Migraines) nabumetone (Rash) penicillin (Hives) Social History Alcohol - Denies Alcohol Use, 07/10/2012 Never., 06/18/2024 Substance Abuse - Denies Substance Abuse, 07/10/2012 Never., 06/18/2024 Past, Cocaine, 07/17/2023 Tobacco - High Risk, 12/07/2022 5-9 cigarettes (between 1/4 to 1/2 pack)/day in last 30 days Tobacco Use:. Never Smokeless Tobacco Use:. Cigarettes (more content not included)...[facility] HospitalComment on above:Result Comment: Electronically Signed By: Cameron Rene DO\.br\Date and Time Signed: 12/06/24 15:18 EDTED Patient Summaryon [id number] Patient SummaryED Patient Summary [place] [id number] Patient Discharge Instructions Person Information Name: JERAD TRACY Age: 49 Years Arrival Date: 12/06/2024 14:57:07 Discharge Diagnosis: 1:Chronic pain Primary Care Physician: FLOR JONES Provider Information Primary Provider: Cameron Rene DO Advanced Dietetic Intern:None The exam and treatment you received in the Emergency Department were for an urgent problem and are not intended as complete care. It is important that you follow up with a doctor, nurse practitioner,or physician???s construction assistant for ongoing care. If your symptoms become worse or you do not improve asexpected and you are unable to reach your usual health care provider, you should return to the Emergency Department. We are available 24 hours a day. JERAD TRACY has been given the following list of patient education materials, prescriptions andfollow-up instructions: Follow-up Instructions: With: Address: When: pain management In 3 days 12/09/2024 With: Address: When: KRISTAN LAU In 3 days In the event that this physician does not participate in your insurance network, please consult with your insurance company to find a nearby participating provider. Patient Education Materials: Chronic Pain, Adult A MESSAGE TO ALL PATIENTS REGARDING OPIOIDS PRESCRIPTION OPIOIDS: WHAT YOU NEED TO KNOW Prescription opioids can be used to help relieve prwewgjy-fm-jdhacd pain and are often prescribed following a [...] guidance from the Food and Drug Administration (www.fda.gov/Drugs/ResourcesForYou). ??? Visit www.cdc.gov/drugoverdose to learn about the risks of opioids abuse and overdose. ??? If you believe you may be struggling with addiction, tell your health childcare aide and askfor guidance or call [facility] (more content not included)...Normal [facility] Clinical Summaryon [id number] Clinical SummaryED Clinical Summary [place] [id number] ED Clinical Summary Person Information Name: JERAD TRACY/[facility] Age: 49 Years : 1975 Sex: Female Language: Malagasy PCP: FLOR JONES Marital Status: Visit Id: Visit Reason: Skin problem; Post surgical problem; MED PUMP SITE PAIN Speciality: Acuity: 4 Enc Type: Emergency Med Service: Emergency Arrival: 12/01/2024 17:41:08 Discharge: 12/01/2024 19:45:22 LOS: 000 02:04 Checkin: 12/01/2024 17:41:08 Checkout: 12/01/2024 19:45:22 Dispo Type: Home (Routine DC) EVENTS: Event Name Event Status Request Date/Time Start Date/Time Complete Date/Time Arrive Complete 12/01/2024 17:41:08 12/01/2024 17:41:08 12/01/2024 17:41:08 Document Home Meds Request 12/01/2024 17:41:08 Triage Complete 12/01/2024 17:41:08 12/01/2024 17:45:09 12/01/2024 17:45:09 Bed Assign Complete 12/01/2024 17:41:56 12/01/2024 17:41:56 12/01/2024 17:41:56 Dr Exam Complete 12/01/2024 17:41:56 12/01/2024 18:13:45 12/01/2024 18:13:45 RN Exam Complete 12/01/2024 17:41:56 12/01/2024 18:10:15 12/01/2024 18:10:15 Registration Complete 12/01/2024 18:13:45 12/01/2024 18:36:07 12/01/2024 18:36:07 Dr Exam Complete 12/01/2024 18:24:59 12/01/2024 18:24:59 12/01/2024 18:24:59 Reg Complete Request 12/01/2024 18:36:07 Reg Bed Request Complete 12/01/2024 18:36:07 12/01/2024 18:36:07 12/01/2024 18:36:07 Meds Admin Complete 12/01/2024 18:49:09 12/01/2024 19:02:44 Discharge Complete 12/01/2024 18:52:00 12/01/2024 19:45:28 12/01/2024 19:45:28 Transfer Complete 12/01/2024 19:45:28 12/01/2024 19:45:28 12/01/2024 19:45:28 ADDRESS: [address] [place] [id number] PHYS DOC NOTES: MEDICAL INFORMATION: Prescriptions Given: Medications to Continue with No Changes Other Medications cyclobenzaprine (cyclobenzaprine 10 mg Tab) 1 Tablets By Mouth 3 times a day as needed for spasm. Refills: 1. duloxetine (Cymbalta 60 mg oral delayed release capsule) 1 Capsules By Mouth every day. Refills: 5. duloxetine (duloxetine 30 mg oral delayed release capsule) 1 Capsules By Mouth every day. Refills: 11. hydrochlorothiazide (hydrochlorothiazide 25 mg Tab) 1 Tablets By Mouth every day. Refills: 3. hydrOXYzine (hydrOXYzine hydrochloride 25 mg Tab) 25 Milligram By Mouth Once. Refills: 4. ibuprofen (ibuprofen 800 mg Tab) 1 Tablets By Mouth 3 times a day. Refills: 0. Misc Prescription (handicap placard) dispense 1 handicap placard. expires: 11/03/2034. Refills: 0. omeprazole (omeprazole 40 mg Cap-DR) 1 Capsules By Mouth 2 times a day. Refills: 3. ondansetron (Zofran 4 mg Tab) 1 Tablets By Mouth every 8 hours as needed Nausea/Vomiting. Refills: 1. oxycodone (oxyCODONE 10 mg ER Tab) 1 Tablets By Mouth every 12 hours as needed severe pain. tirzepatide (Zepbound 2.5 mg/0.5 mL subcutaneous solution) 2.5 Milligram Subcutaneous every week. Refills: 1. tirzepatide (Zepbound 2.5 mg/0.5 mL subcutaneous solution) 2.5 Milligram Subcutaneous every week. Refills: 3. zolpidem (Ambien 10 mg Tab) 1 Tablets By Mouth once a day (at bedtime) as needed for sleep. Refills: 5. PATIENT EDUCATION INFORMATION: Instructions: Chronic Pain, Adult Follow up: With: Address: When: KRISTAN LAU In 3 days 12/04/2024 DIAGNOSIS: Pain syndrome, chronic; Post surgical complicationNormalFisher Sal Medical CenterED Note-Physicianon [id number] Note-PhysicianED Note-Physician Basic Information Time Seen: Robert Taylor PA-C 12/01/2024 18:13 Chief Complaint per pt had a pain pump placed, seen yesterday for pain to area, doesn't have meds in pump. having pain to site. no fevers History of Present Illness 49-year-old female comes into the ED for evaluation of abdominal pain. She is a longstanding history of chronic pain. She recently had a intrathecal pain pump placed. She is been having pain at the surgical site. She was seen in the ED yesterday, had a full workup including CT scan all of which wasnondiagnostic. She was medicated for pain with improvement. She Paul presents today with continued pain and requesting additional pain medications. She states her pain pump has not yet been filled, therefore she has no pain medication at home. No fever, chills, nausea or vomiting. Overall nontoxic. Review of Systems A 10 point review of systems is negative except as noted above. Medical and Surgical History: Reviewed and noted Social history: Lives at home Tobacco: Denies Physical Exam Vitals & Measurements T: 36.9 ???C(Oral) HR: 100(Peripheral) RR: 18 BP: 181/115 SpO2: 98% HT: 160 cm WT: 118 kg BMI: 46.09 Nurses notes and vital signs reviewed and patient is not hypoxic. General: Awake, alert, well-appearing Skin: Warm, dry. Head: Atraumatic. Neck: No JVD. Eye: Normal conjunctiva. Ears, Nose, Mouth, and Throat: Moist mucous membranes. Cardiovascular: Strong distal pulses. Chest wall: Respiratory: Respirations are nonlabored. Back: Normal range of motion. Musculoskeletal: Normal ROM with no gross deformity. Gastrointestinal: Urological: Neurological: Awake and alert. No focal deficits. Follows commands. Psychiatric: Cooperative. Medical Decision Making Patient presents with uncontrolled pain postsurgically with a longstanding history of chronic pain syndrome. She had a full medical workup yesterday including CT scan which was nondiagnostic. She is medicated for her discomfort here and is discharged home to follow-up with her outpatient team. Patient was encouraged to return to the ED if symptoms worsen or change. Assessment/Plan Pain syndrome, chronic (G89.4: Chronic pain syndrome) Post surgical complication (T81.9XXA: Unspecified complication of procedure, initial encounter) Orders: morphine, 8 mg = 2 mL, Injection, IntraMuscular, Once, Stop date 12/01/24 18:48:00 EDT, STAT, Startdate 12/01/24 18:48:00 EDT, 12/01/24 18:48:00 EDT Disposition Plan Patient Discharge Condition Disposition: Discharged home Condition: Improved and stable Counseled: Patient and/or family were counseled to workup, results, treatment plan and follow-up recommendations Discharge Prescription List Prescriptions No active prescription medications Follow-up With When Contact Information KRISTAN LAU In 3 days 12/04/2024 EDT Additional Instructions: Patient Education Chronic Pain, Adult Attestation I performed a substantive part of the MDM during the patient???s E/M visit. I personally made or approved the documented management plan and acknowledge its risk of complications. (Independent Interpretation) My (EKG/X-Ray/US/CT) interpretation as above. (Discussion) Management/test interpretation discussed with APC. This report was transcribed using voice recognition software. Every effort was made to ensure accuracy, however, inadvertently computerized bill recapitulation clerk mistakes may be present. Appropriate healthcare PPE was used in evaluating this patient. Problem List/Past Medical History Ongoing Arthritis of first carpometacarpal joint of right hand Bipolar disorder Chronic back pain Chronic hepatitis C Closed fracture of trapezoidal bone of wrist COVID-19 Diarrhea Disease of liver Drug therapy finding Edema Elevated blood pressure reading Encounter for screening mammogram for breast cancer Fatigue HTN (hypertension) Migraine Morbid obesity with BMI of 45.0-49.9, adult Obesity Screening for cardiovascular condition Smoker Smoker Tendonitis of right wrist Weight gain Wellness examination Historical Bipolar Continuous opioid dependence Hepatitis C Liver disease Lyme disease Migraines Procedure/Surgical History Hysterectomy (2010), History of cholecystectomy, Hysterectomy, lap x 7, Tonillectomy with adenoids. Medications Inpatient No active inpatient medications Home Ambien 10 mg Tab, 10 mg= 1 tab(s), Oral, Once a day (at bedtime), PRN, 5 refills cyclobenzaprine 10 mg Tab, 10 mg= 1 tab(s), Oral, TID, PRN, 1 refills Cymbalta 60 mg oral delayed release capsule, 60 mg= 1 cap(s), Oral, Daily, 5 refills duloxetine 30 mg oral delayed release capsule, 30 mg= 1 cap(s), Oral, Daily, 11 refills handicap placard, See Instructions hydrochlorothiazide 25 mg Tab, 25 mg= 1 tab(s), Oral, Daily, 3 refills hydrOXYzine hydrochloride 25 mg Tab, 25 mg, Oral, Once, 4 refills ibuprofen 800 mg Tab, 800 mg= 1 ta (more content not included)...[facility] HospitalComment on above:Result Comment: Electronically Signed By: Robert Taylor PA-C\.br\Date and Time Signed: 12/01/2517:52 EDT\.br\Electronically Co-Signed By: Jorge Mcintosh DO\.br\Date and Time Co- Signed: 12/01/24 19:13 EDTED Note-PhysicianED Note-Physician Basic Information Time Seen: Robert Taylor PA-C 11/30/2024 14:19 Chief Complaint pt c/o R abd pain after having a pain pump placed on Saturday for chronic back pain. pt denies any n/v/d or fevers. History of Present Illness 49-year-old female comes to the ED for evaluation of abdominal pain. The patient had a recent surgical procedure for implantation of a intrathecal pain pump to the right abdominal area. She presents today with significant pain around the surgical site. She has had some nausea but no vomiting. She does some chills but no fevers. She states the pump was placed, but has not yet filled. She is on oral pain medications. No chest pain or shortness of breath. Review of Systems A 10 point review of systems is negative except as noted above. Medical and Surgical History: Reviewed and noted Social history: Lives at home Tobacco: Denies Physical Exam Vitals & Measurements T: 36.7 ???C(Oral) HR: 85(Monitored) RR: 18 BP: 140/97 SpO2: 96% HT: 160 cm WT: 118.5 kg BMI: 46.29 Nurses notes and vital signs reviewed and patient is not hypoxic. General: Awake, alert, well-appearing Skin: Warm, dry. Head: Atraumatic. Neck: No JVD. Eye: Normal conjunctiva. Ears, Nose, Mouth, and Throat: Moist mucous membranes. Cardiovascular: Strong distal pulses. Chest wall: Respiratory: Respirations are nonlabored. Back: Normal range of motion. Musculoskeletal: Normal ROM with no gross deformity. Gastrointestinal: Abdomen soft throughout. Postsurgical changes to the right abdominal wall. The pain pump is palpable. There is dry intact dressing. There is expected postsurgical ecchymosis. No fluctuance or induration. No erythema. No drainage. Urological: Neurological: Awake and alert. No focal deficits. Follows commands. Psychiatric: Cooperative. Medical Decision Making Patient presents with postsurgical pain at the surgical site. Her abdomen is soft. She does have ecchymosis but this all appears to be superficial. Given the history laboratory studies and imaging are obtained. No acute findings. She feels improved here after IV pain medications. She is discharged home to follow- up with her surgery. Patient was encouraged to return to the ED if symptoms worsen orchange. Assessment/Plan Abdominal pain (R10.9: Unspecified abdominal pain) Post surgical complication (T81.9XXA: Unspecified complication of procedure, initial encounter) Orders: morphine, 4 mg = 1 mL, Injection, IV Push, Once, Stop date 11/30/24 14:36:00 EDT, STAT, Start date 11/30/24 14:36:00 EDT, 11/30/24 14:36:00 EDT morphine, 4 mg = 1 mL, Injection, IV Push, Once, Stop date 11/30/24 16:43:00 EDT, STAT, Start date 11/30/24 16:43:00 EDT, 11/30/24 16:43:00 EDT ondansetron, 4 mg = 2 mL, Injection, IV Push, Once, Stop date 11/30/24 14:36:00 EDT, STAT, Start date 11/30/24 14:36:00 EDT, 11/30/24 14:36:00 EDT Sodium Chloride 0.9% intravenous solution, 1,000 mL, Soln-IV, IV, Once, Stop date 11/30/24 14:35:00EDT, STAT, Start date 11/30/24 14:35:00 EDT, Infuse over 61, minute(s) Basic Metabolic Panel CBC w/ Auto Diff CT Abdomen/Pelvis w/ Contrast eGFR Hepatic Function Panel Lipase Level Medications Administered Given morphine 4 mg/mL Inj, 4 mg, IV Push morphine 4 mg/mL Inj, 4 mg, IV Push NS 1000 ml Bolus, 1000 mL, IV Zofran 4 mg/2 mL Injection, 4 mg, IV Push Disposition Plan Patient Discharge Condition Disposition: Discharged home Condition: Improved and stable Counseled: Patient and/or family were counseled to workup, results, treatment plan and follow-up recommendations Discharge Prescription List Prescriptions No active prescription medications Follow-up With When Contact Information KRISTAN LAU In 3 days 12/03/2024 EDT Additional Instructions: Patient Education Abdominal Pain, Adult Attestation I performed a substantive part of the MDM during the patient???s E/M visit. I personally made or approved the documented management plan and acknowledge its risk of complications. (Independent Interpretation) My (EKG/X-Ray/US/CT) interpretation as above. (Discussion) Management/test interpretation discussed with APC. This report was transcribed using voice recognition software. Every effort was made to ensure accuracy, however, inadvertently computerized bill recapitulation clerk mistakes may be present. Appropriate healthcare PPE was used in evaluating this patient. Problem List/Past Medical History Ongoing Arthritis of first carpometacarpal joint of right hand Bipolar disorder Chronic back pain Chronic hepatitis C Closed fracture of trapezoidal bone of wrist COVID-19 Diarrhea Disease of liver Drug therapy finding Edema Elevated blood pressure reading Encounter for screening mammogram for breast cancer Fatigue HTN (hypertension) Migraine Morbid obesity with BMI of 45.0-49.9, adult Obesity Screening for cardiovascular condition Smoker Smoker Tendonitis of right wrist We (more content not included)...[facility] HospitalComment on above:Result Comment: Electronically Signed By: Robert Taylor PA-C\.br\Date and Time Signed: 12/01/2515:49 EDT\.br\Electronically Co-Signed By: Jorge Mcintosh DO\.br\Date and Time Co-Signed: 12/01/24 07:10 EDTED Patient Summaryon [id number] Patient SummaryED Patient Summary [place] [address] Patient Discharge Instructions Person Information Name: JERAD TRACY Age: 49 Years Arrival Date: 12/01/2024 17:41:08 Discharge Diagnosis: Pain syndrome, chronic; Post surgical complication Primary Care Physician: FLOR JONES Provider Information Primary Provider: Jorge Mcintosh DO Advanced Dietetic Intern:Robert Taylor PA-C The exam and treatment you received in the Emergency Department were for an urgent problem and are not intended as complete care. It is important that you follow up with a doctor, nurse practitioner,or physician???s construction assistant for ongoing care. If your symptoms become worse or you do not improve asexpected and you are unable to reach your usual health care provider, you should return to the Emergency Department. We are available 24 hours a day. JERAD TRACY has been given the following list of patient education materials, prescriptions andfollow-up instructions: Follow-up Instructions: With: Address: When: KRISTAN LAU In 3 days 12/04/2024 In the event that this physician does not participate in your insurance network, please consult with your insurance company to find a nearby participating provider. Patient Education Materials: Chronic Pain, Adult A MESSAGE TO ALL PATIENTS REGARDING OPIOIDS PRESCRIPTION OPIOIDS: WHAT YOU NEED TO KNOW Prescription opioids can be used to help relieve mtxjgira-ox-dxqnqp pain and are often prescribed following a [...] guidance from the Food and Drug Administration (www.fda.gov/Drugs/ResourcesForYou). ??? Visit www.cdc.gov/drugoverdose to learn about the risks of opioids abuse and overdose. ??? If you believe you may be struggling with addiction, tell your health childcare aide and askfor guidance or call [facility]? (more content not included)... NormalOhiohealth Berger HospitalBMPon [id number] gap [Moles/Vol]9 mmol/L Normal6-16[facility] HospitalComment on above:Performed By: #### [id number] #### [facility] [address] [place], [place] [address]OIS/Creat Ratio20 No [id number] Berger HospitalComment on above:Performed By: #### [id number] #### [facility] [address] [place], [place] [address]Xgtnysp [Mass/Vol]9.0 mg/dLNormal8.9-11.1FClermont County HospitalComment on above:Performed By: #### [id number] #### [facility] [address] [place], [place] [address]Gfordqzo [Moles/Vol]105 mmol/JQopeyb968-256VqfyttOhiohealth Berger HospitalComment on above:Performed By: #### [id number] #### [facility] [address] [place], [place] [address]CF6 [Moles/Vol]29 mmol/ZPwuxcl86-83JhsgqfOhiohealth Berger Hospital Comment on above:Performed By: #### [id number] #### [facility] [address] [place], [place] [address]Cgbqflrwjx [Mass/Vol]0.8 mg/dLNormal0.5-1.3FClermont County HospitalComment on above:Performed By: #### [id number] #### [facility] [address] [place], [place] [address]Ljbsgqj [Mass/Vol]103 mg/hDZtunyp87-684VijqctOhiohealth Berger HospitalComment on above:Performed By: #### [id number] #### [facility] [address] [place], [place] [address]Wpilstjbb [Moles/Vol]4.0 mmol/LNormal3.5-5.3FClermont County HospitalComment on above:Performed By: #### [id number] #### [facility] [address] [place], [place] [address]Mfhelo [Moles/Vol]139 mmol/XHhhflq025-560XnvjavOhiohealth Berger HospitalComment on above:Performed By: #### [id number] #### [facility] [address] [place], [place] [address]Xaev nitrogen [Mass/Vol]16 mg/dLNormal5-21[facility] HospitalComment on above:Performed By: #### [id number] #### [facility] [address] [place] [address]QUX w/ Auto Diffon [id number] Absolute0.0 E9/LNormal 0.0-0.2FClermont County HospitalComment on above:Performed By: #### [id number] #### [facility] [address] [place] [address]Dprtqolbs/100 WBC (Bld)0.3 %Normal0.0-2.0[facility] Berger HospitalComment on above:Performed By: #### [id number] #### [facility] [address] [place] [address]Unf Absolute0.1 E9/LNormal0.0-0.5FClermont County Hospital Comment on above:Performed By: #### [id number] #### [facility] [address] [place] [address]Sbbjsvsfmyg/100 WBC (Bld)1.6 %Normal0.0-8.0[facility] Berger HospitalComment on above:Performed By: #### [id number] #### [facility] [address] [place] [address]Ghbmprlrxlw distribution width (RBC) [Ratio]16.0 %High10.9-14.2 [facility] HospitalComment on above:Performed By: #### [id number] #### [facility] [address] [place] [address]69[address]Abxpidqtry (Bld) [Volume fraction]41.3 %Gtwvbg90.0-46.0[facility] HospitalComment on above:Performed By: #### [id number] #### [facility] [address] [place] [address]Vpfxekshde (Bld) [Mass/Vol]14.2 g/aFMomvcv54.0-16.0[facility] HospitalComment on above:Performed By: #### [id number] #### [facility] [address] [place] [address] 119[address]Nwcar Absolute1.9 E9/LNormal1.0-4.0[facility] Comment on above:Performed By: #### [id number] #### [facility] [address] [place] [address]Zusealxhutq/100 WBC (Bld)22.6 %Asaffd78.0-50.0[facility] HospitalComment on above:Performed By: #### [id number] #### [facility] [address] [place] [address]36[address]ITB (RBC) [Entitic mass]30.6 yhGfxwjh39.0-34.0[facility] HospitalComment on above:Performed By: #### [id number] #### [facility] [address] [place] [address]25[address]RELG (RBC) [Mass/Vol]34.4 g/eHRmqaqi34.4-36.0[facility] HospitalComment on above:Performed By: #### [id number] #### [facility] [address] [place] [address]SOU (RBC) [Entitic vol]88.9 oINyhxhf54.0-100.0[facility] HospitalComment on above:Performed By: #### [id number] #### [facility] [address] [place] [address]Aihf Absolute0.6 E9/LNormal0.2-1.0[facility] Comment on above:Performed By: #### [id number] #### [facility] [address] [place] [address]82[address]Yjzkegyev/100 WBC (Bld)6.7 %Normal4.0-14.0[facility] HospitalComment on above:Performed By: #### [id number] #### [facility] [address] [place] [address]Xpxkeo Absolute5.8 E9/LNormal2.0-7.5FClermont County Hospital Comment on above:Performed By: #### [id number] #### [facility] [address] [place], [place] [address]Wmjvex Auto68.8 %Kxenaf07.0-75.0[facility] Comment on above:Performed By: #### [id number] #### [facility] [address] [place], [place] [address]Jbjixuuy933.0 E9/SLxkzcp127.0-500.0[facility] Comment on above:Performed By: #### [id number] #### [facility] [address] [place], [place] [address]Cxbwhdjs mean volume (Bld) [Entitic vol]8.3 fLNormal6.4-10.8 [facility] HospitalComment on above:Performed By: #### [id number] #### [facility] [address] [place] [address]27[address]RGV3.6 E12/LNormal4.3-5.9[facility] HospitalComment on above:Performed By: #### [id number] #### [facility] [address] [place] [address] 783[address]SCL3.4 E9/LNormal4.0-11.0[facility] Berger HospitalComment on above:Performed By: #### [id number] #### [facility] [address] [place] [address]ZY Abdomen/Pelvis w/ Contraston [id number] Abdomen/Pelvis w/ ContrastExam Date/Time: 11/30/2024 15:15 EDT Reason for Exam: ABDOMINAL PAIN, ACUTE, NONLOCALIZED;Other (please specify) Report IMPRESSION: POSTSURGICAL CHANGES. NO EVIDENCE OF ACUTE ABDOMINAL OR PELVIC PATHOLOGY.. CLINICAL HISTORY: ABDOMINAL PAIN, ACUTE, NONLOCALIZED. COMPARISON: 05/23/2024. COMMENT: Images were obtained following the administration of Intravenous contrast. Inferior portion of the lung bases included within the refxx-ja-lhnt are aerated and clear. There is eventration of the right diaphragm anteriorly. The most superior portion of the right lobe of the liver is not included within the bmpiv-fh-vnsj. The visualized portion of the liver is unremarkable. There are surgical clips at the gallbladder fossa, from prior cholecystectomy. Proximal extrahepatic bile ducts are dilated, measuring up to 1 cm in diameter, but no choledochal calculus is evident. The spleen and pancreas are normal in appearance. There are small stable low-attenuation right and left adrenal nodules. Both kidneys are normal in appearance. The renal collecting systems are not dilated. No retroperitoneal lymphadenopathy is evident. There are scattered arterial calcifications. The abdominal aorta is normal in diameter. No aneurysm is noted. Evaluation of bowel is limited. The bowel loops are not dilated, and there is no evidence of bowel obstruction. The appendix is normal. Fecal material in the colon limits evaluation. There is no evidence of diverticulitis. No abdominal inflammatory complex nor free air nor free fluid is noted. The patient has had prior hysterectomy. The urinary bladder is unremarkable. There are right and left tubal ligation clips. No pelvic mass nor pelvic lymphadenopathy is evident. There is spondylosis, with degenerative changes of lower lumbar and visualized lower thoracic vertebral bodies. When compared to the prior study, a pain pump device has been implanted in subcutaneous soft tissue laterally on the right, with thin diameter tubing extending to enter the spinal canal at the T12-L1 level, and then extending cephalad within the thoracic spinal canal. All CT scans at this facility use dose modulation, iterative reconstruction, and/or weight based dosing when appropriate to reduce radiation dose to as low as reasonably achievable. Report Unless otherwise stated, incidental findings identified in this report do not require routine follow-up imaging. Technical Comments: GFR (mL/min/1/73m2) na Contrast: Isovue 300 Contrast amount in ml's: 100.00 Rectal Contrast Given? No Ordering Provider: Robert Taylor FINAL REPORT Dictated: 11/30/2024 3:44 pm Michele Moser M.D. Signed (Electronic Signature): 11/30/2024 3:44 pm Signed by: Michele Moser M.D. Transcribed by: KIERRA Technologist: Dennis [facility] Clinical Summaryon [id number] Clinical SummaryED Clinical Summary [address] [address] ED Clinical Summary Person Information Name: JERAD TRACY Tasha/[facility] Age: 49 Years : 1975 Sex: Female Language: Malagasy PCP: FLOR JONES Marital Status: Visit Id: Visit Reason: Back pain; Abdominal pain; Post surgical problem; ABD PAIN AND BACK Speciality: Acuity: 3 Enc Type: Emergency Med Service: Emergency Arrival: 11/30/2024 14:00:28 Discharge: 11/30/2024 16:52:41 LOS: 000 02:52 Checkin: 11/30/2024 14:00:28 Checkout: 11/30/2024 16:52:41 Dispo Type: Home (Routine DC) EVENTS: Event Name Event Status Request Date/Time Start Date/Time Complete Date/Time Arrive Complete 11/30/2024 14:00:28 11/30/2024 14:00:28 11/30/2024 14:00:28 Document Home Meds Request 11/30/2024 14:00:28 Triage Complete 11/30/2024 14:00:28 11/30/2024 14:10:36 11/30/2024 14:10:36 Registration Complete 11/30/2024 14:03:47 11/30/2024 14:03:47 11/30/2024 14:03:47 Reg Complete Request 11/30/2024 14:03:47 Reg Bed Request Complete 11/30/2024 14:03:47 11/30/2024 14:03:47 11/30/2024 14:03:47 Bed Assign Complete 11/30/2024 14:04:41 11/30/2024 14:04:41 11/30/2024 14:04:41 Dr Exam Complete 11/30/2024 14:04:41 11/30/2024 14:19:13 11/30/2024 14:19:13 RN Exam Complete 11/30/2024 14:04:41 11/30/2024 15:26:34 11/30/2024 15:26:34 Registration Request 11/30/2024 14:19:13 Dr Exam Complete 11/30/2024 14:22:17 11/30/2024 14:22:17 11/30/2024 14:22:17 CT Complete 11/30/2024 14:36:35 11/30/2024 14:54:37 11/30/2024 15:15:40 Meds Admin Complete 11/30/2024 14:36:35 11/30/2024 14:51:46 Pending Labs Complete 11/30/2024 14:36:35 11/30/2024 15:17:11 Lab Complete 11/30/2024 14:36:35 11/30/2024 15:17:11 Pending Labs Complete 11/30/2024 14:50:37 11/30/2024 14:50:37 11/30/2024 15:17:11 Lab Complete 11/30/2024 14:50:37 11/30/2024 14:50:37 11/30/2024 15:17:11 Discharge Complete 11/30/2024 16:42:57 11/30/2024 16:52:47 11/30/2024 16:52:47 Meds Admin Complete 11/30/2024 16:44:13 11/30/2024 16:47:27 Transfer Complete 11/30/2024 16:52:47 11/30/2024 16:52:47 11/30/2024 16:52:47 ADDRESS: [address] [facility] [id number] [facility] DOC NOTES: MEDICAL INFORMATION: Prescriptions Given: Medications to Continue with No Changes Other Medications cyclobenzaprine (cyclobenzaprine 10 mg Tab) 1 Tablets By Mouth 3 times a day as needed for spasm. Refills: 1. duloxetine (Cymbalta 60 mg oral delayed release capsule) 1 Capsules By Mouth every day. Refills: 5. duloxetine (duloxetine 30 mg oral delayed release capsule) 1 Capsules By Mouth every day. Refills: 11. hydrochlorothiazide (hydrochlorothiazide 25 mg Tab) 1 Tablets By Mouth every day. Refills: 3. hydrOXYzine (hydrOXYzine hydrochloride 25 mg Tab) 25 Milligram By Mouth Once. Refills: 4. ibuprofen (ibuprofen 800 mg Tab) 1 Tablets By Mouth 3 times a day. Refills: 0. Misc Prescription (handicap placard) dispense 1 handicap placard. expires: 11/03/2034. Refills: 0. omeprazole (omeprazole 40 mg Cap-DR) 1 Capsules By Mouth 2 times a day. Refills: 3. ondansetron (Zofran 4 mg Tab) 1 Tablets By Mouth every 8 hours as needed Nausea/Vomiting. Refills: 1. oxycodone (oxyCODONE 10 mg ER Tab) 1 Tablets By Mouth every 12 hours as needed severe pain. tirzepatide (Zepbound 2.5 mg/0.5 mL subcutaneous solution) 2.5 Milligram Subcutaneous every week. Refills: 1. tirzepatide (Zepbound 2.5 mg/0.5 mL subcutaneous solution) 2.5 Milligram Subcutaneous every week. Refills: 3. zolpidem (Ambien 10 mg Tab) 1 Tablets By Mouth once a day (at bedtime) as needed for sleep. Refills: 5. PATIENT EDUCATION INFORMATION: Instructions: Abdominal Pain, Adult Follow up: With: Address: When: KRISTAN LAU In 3 days 12/03/2024 DIAGNOSIS: Abdominal pain; [facility] Patient Summaryon [id number] Patient SummaryED Patient Summary [place] [address] Patient Discharge Instructions Person Information Name: JERAD TRACY Age: 49 Years Arrival Date: 11/30/2024 14:00:28 Discharge Diagnosis: Abdominal pain; Post surgical complication Primary Care Physician: FLOR JONES Provider Information Primary Provider: Jorge Mcintosh DO Advanced Dietetic Intern:Robert Taylor PA-C The exam and treatment you received in the Emergency Department were for an urgent problem and are not intended as complete care. It is important that you follow up with a doctor, nurse practitioner,or physician???s construction assistant for ongoing care. If your symptoms become worse or you do not improve asexpected and you are unable to reach your usual health care provider, you should return to the Emergency Department. We are available 24 hours a day. JERAD TRACY has been given the following list of patient education materials, prescriptions andfollow-up instructions: Follow-up Instructions: With: Address: When: KRISTAN JUDI In 3 days 12/03/2024 In the event that this physician does not participate in your insurance network, please consult with your insurance company to find a nearby participating provider. Patient Education Materials: Abdominal Pain, Adult A MESSAGE TO ALL PATIENTS REGARDING OPIOIDS PRESCRIPTION OPIOIDS: WHAT YOU NEED TO KNOW Prescription opioids can be used to help relieve ffqpjrpl-pm-kjwxhp pain and are often prescribed following a [...] guidance from the Food and Drug Administration (www.fda.gov/Drugs/ResourcesForYou). ??? Visit www.cdc.gov/drugoverdose to learn about the risks of opioids abuse and overdose. ??? If you believe you may be struggling with addiction, tell your health childcare aide and askfor guidance or call [facility]???S Na (more content not included)...NormalOhiohealth Berger HospitalHep [facility] Panelon [id number] [Mass/Vol]3.9 g/dLNormal3.3-5.0[facility] HospitalComment on above: Performed By: #### [id number] #### [facility] [address] [place], [place] [address]Pwcrefe/Globulin [Mass ratio]1.3 {ratio}Normal1.1-2.2FClermont County HospitalComment on above:Performed By: #### [id number] #### [facility] [address] [place], [place] [address]Cqy Phos95 Int._Unit/QEjgxlu47-11OsyllhOhiohealth Berger Hospital Comment on above:Performed By: #### [id number] #### [facility] [address] [place], [place] [address]OWQ55 Int._Unit/LNormal6-46[facility] Berger HospitalComment on above:Performed By: #### [id number] #### [facility] [address] [place], [place] [address]JLP96 Int._Unit/LNormal5-43[facility] Berger HospitalComment on above:Performed By: #### [id number] #### [facility] [address] [place], [place] [address]Epik Direct0.1 mg/dLNormal0.0-0.4FClermont County Hospital Comment on above:Performed By: #### [id number] #### [facility] [address] [place], [place] [address]Ukwd Indirect0.3 mg/dLNormal0.1-0.9[facility] Comment on above:Performed By: #### [id number] #### [facility] [address] [place], [place] [address]Gntn Total0.4 mg/dLNormal0.0-1.1FClermont County Hospital Comment on above:Performed By: #### [id number] #### [facility] [address] [place], [place] [address]Pnqfwqwy (S) [Mass/Vol]2.9 g/dLNormal1.4-4.0[facility] HospitalComment on above:Performed By: #### [id number] #### [facility] [address] [place], [place] [address]Icadaxs [Mass/Vol]6.8 g/dLNormal6.0-7.8[facility] Berger HospitalComment on above:Performed By: #### [id number] #### [facility] [address] [place], [place] [address]Fdegnd Levelon 08-25-1008Lwwnzn Lvl14 unit/NIwmwio76-90CutmumOhiohealth Berger HospitalComment on above:Performed By: #### [id number] #### [facility] [address] [place], [place] [address]uHPAfj [id number] mL/min/1.73 s0Qgfatt>=59[facility] Trauma CenterComment on above:Performed By: #### [id number] ####[facility] [address] [place], [place] [address]MTSWUX FOR SURGICAL PROCEDURESon [id number] FOR SURGICAL PROCEDURESEXAMINATION: SPOT FLUOROSCOPIC IMAGES 11/27/2024 9:28 am TECHNIQUE: Fluoroscopy was provided by the radiology department for procedure. Radiologist was not present during examination. FLUOROSCOPY DOSE AND TYPE: Radiation Exposure Index: Kerma mGy, 39.183 3 images Fluoroscopy time: 39.6 seconds COMPARISON: None HISTORY: ORDERING SYSTEM PROVIDED HISTORY: Pain TECHNOLOGIST PROVIDED HISTORY: What reading provider will be dictating this exam?->CRC Intraprocedural imaging. FINDINGS: Fluoroscopic support provided to subspecialty service for intrathecal pain pump placement. No obvious complication on the images provided. Please see subspecialty report for full details and interpretation of real time imaging. IMPRESSION: Intraprocedural fluoroscopic spot images as above. See separate procedure report for more information. Interpreted by: Arnoldo Joyce DO Signed by: Arnoldo Joyce DO 11/27/24 Final resultNoPlatte Valley Medical Center Note-Physicianon [id number] Note-PhysicianED Note-Physician Basic Information Time Seen: Landon Tidwell PA-C 11/22/2024 16:28 Chief Complaint L lower back pain started this am, states she is scheduled to have a pain pump placed in 5 days. she also states she is out of her pain meds until Saturday. History of Present Illness A 49-year-old female reports to the ED with acute flareup of her chronic back pain. Reports that she is scheduled to have a pain pump placed in 5 days. Is supposed be placed on Saturday. Reports that she is not having any symptoms. Just like something for her pain relief. Has not had pain meds as shecannot call the office and they are not open until Saturday. No bowel or bladder deficits. Review of Systems No other aggravating or relieving factors no other associated symptoms no other prior treatments orcomplaints. Family: Reviewed and noncontributory Social: lives at home Review of systems negative unless otherwise specified in the HPI. Physical Exam Vitals & Measurements T: 36.7 ???C(Oral) HR: 99(Peripheral) RR: 18 BP: 142/101 SpO2: 98% HT: 160 cm WT: 116.5 kg BMI: 45.51 General: The patient appears well and in no apparent distress. Patient is resting comfortably in chair. Afebrile Skin: Warm, dry, no pallor noted. Head: Normocephalic, atraumatic Neck: No JVD Eye: PERRLA, EOMI ENT: Moist mucus membranes Cardiovascular: Regular rate. normal peripheral perfusion. Pedal pulses +2 bilaterally Respiratory: No respiratory distress. no accessory muscle use. no obvious audible wheezing Chest Wall: no deformity Musculoskeletal:. Diffuse left lower lumbar tenderness on palpation. No step-off of midline spine felt. GI: No obvious distention Neurological: A&O. moves all extremities equal strength and symmetry Psychiatric: Cooperative and appropriate Medical Decision Making A 49-year-old female reports with acute flareup of her chronic back pain. This is her typical pain as she reports. Has been seen here multiple times for similar pain. Discussed 1 dose of pain medication here. No concern for cauda equina syndrome. Discussed follow-up with the pain management. Discussed return precautions. Follow-up with your primary care provider in 3 to 5 days. If symptoms worsen, do not improve, or new symptoms arise please report back to emergency department for further evaluation. The patient was understanding and agreeable to plan moving forward. Assessment/Plan Chronic back pain (M54.9: Dorsalgia, unspecified) Other chronic pain (G89.29: Other chronic pain) Orders: morphine, 8 mg = 2 mL, Injection, IntraMuscular, Once, Stop date 11/22/24 16:28:00 EDT, STAT, Startdate 11/22/24 16:28:00 EDT, 11/22/24 16:28:00 EDT Medications Administered Given morphine 4 mg/mL Inj, 8 mg, IntraMuscular Disposition Plan Patient Discharge Condition stable Discharge Disposition to home Discharge Prescription List Prescriptions No active prescription medications Follow-up With When Contact Information KRISTAN LAU In 3 days 11/25/2024 EDT [address] [place] [address]- Business (1) Additional Instructions: Call Dr for diagnosis based follow up Patient Education Chronic Back Pain Attestation Patient seen and evaluated by the physician construction assistant. Attending physician was present in the emergency department and supervised care. This visit was performed by both the physician and an APC. I performed all aspects of the MDM as documented. This report was transcribed using voice recognition software. Every effort was made to ensure accuracy, however, inadvertently computerized bill recapitulation clerk mistakes may be present. Appropriate healthcare PPE [...] Diarrhea Disease of liver Drug therapy finding Edema Elevated blood pressure reading Encounter for screening mammogram for breast cancer Fatigue HTN (hypertension) Migraine Morbid obesity with BMI of 45.0-49.9, adult Obesity Screening for cardiovascular condition Smoker Smoker Tendonitis of right wrist Weight gain Wellness examination Historical Bipolar Continuous opioid dependence Hepatitis C Liver disease Lyme disease Migraines Procedure/Surgical History Hysterectomy (2010), History of cholecystectomy, H (more content not included)...[facility] HospitalComment on above:Result Comment: Electronically Signed By: Landno Tidwell PA-C.br\Date and Time Signed: 11/23/2519:09 EDT\.br\Electronically Co-Signed By: Cameron Rene DO.br\Date and Time Co-Signed: 11/24/24 20:10 EDTED Prov Noteon [id number] Prov NoteED PROVIDER NOTE [facility] NAME: Jerad Tracy AGE: 49 y.o. : 1975 VISIT DATE: 11/23/2024 CSN: [id number] PCP: No, Physician Chief Complaint Patient presents with Back Pain 49-year-old female patient presents for acute on chronic lumbar pain, radiating down the leg, provoked with certain positions relieved with rest partially. Ran out of her home medications, pain pump scheduled for this Saturday Past Medical History: Diagnosis Date Back pain Bulging lumbar disc L4-L5; SEVERE NARROWING OF L5-S1 Depression Past Surgical History: Procedure Laterality Date BACK SURGERY BUNIONECTOMY Bilateral 2022 CHOLECYSTECTOMY HYSTERECTOMY TONSILLECTOMY AND ADENOIDECTOMY TYMPANOSTOMY TUBE PLACEMENT History reviewed. No pertinent family history. Social History [1] Previous Medications Medication Sig FLUoxetine (PROZAC) 20 MG capsule Take 3 (three) capsules (60 mg total) by mouth daily . ibuprofen (ADVIL,MOTRIN) 800 MG tablet Take 1 (one) tablet (800 mg total) by mouth every 6 (six) hours as needed for pain . Allergies[2] Review of Systems All other systems reviewed and are negative. Patient Vitals for the past 24 hrs: BP Temp Temp src Pulse Resp SpO2 Height Weight 11/23/24 1131 (!) 151/95 97.1 degrees F (36.2 degrees C) Temporal 68 18 97 % 5' 3 117.9 kg [...] range of motion and neck supple. Comments: Paralumbar tenderness Pulmonary: Effort: Pulmonary effort is normal. Breath [...] No results found for this visit on 11/23/24. No orders to display Procedures Medical Decision Making Patient presents for acute on chronic lumbar radiculopathy otherwise well-appearing, no distress. No sign of saddle anesthesia, no traumas or injuries. Pain control given, follow-up as an outpatient, return precautions discussed The patient has been informed that they [...] packs/day: 0.50 Average packs/day: 0.5 packs/day for 30.9 years (15.5 ttl pk-yrs) Types: Cigarettes Start date: 12/28/1993 Smokeless tobacco: Never Vaping Use Vaping status: Never Used Substance and Sexual Activity Alcohol use: Never Drug use: Never Social Drivers of Health Financial Resource Strain: Low Risk (06/12/2024) Received from [facility] Overall Financial Resource Strain (CARDIA) Difficulty of Paying Living Expenses: Not hard at all Food Insecurity: No Food Insecurity (06/12/2024) Received from [facility] Hunger Vital Sign Worried About Running Out of Food in the Last Year: Never true Ran Out of Food in the Last Year: Never true Transportation Needs: No Transportation Needs (06/12/2024) Received from [facility] PRAPARE - Transportation Lack of Transportation (Medical): No Lack of Transportation (Non-Medical): No Physical Activity: Inactive (06/12/2024) Received from [facility] Exercise Vital Sign Days of Exercise per Week: 0 days Minutes of Exercise per Session: 0 min Stress: No Stress Concern Present (06/12/2024) Received from [facility] [place] [employer] - O (more content not included)... Normal[facility] CenterED Clinical Summaryon [id number] Clinical SummaryED Clinical Summary [address] [address] ED Clinical Summary Person Information Name: JERAD TRACY/[place] Age: 49 Years : 1975 Sex: Female Language: Malagasy PCP: FLOR JONES Marital Status: Visit Id: Visit Reason: Back pain; LOWER BACK PAIN Speciality: Acuity: 4 Enc Type: Emergency Med Service: Emergency Arrival: 11/22/2024 16:22:33 Discharge: 11/22/2024 16:44:16 LOS: 000 00:22 Checkin: 11/22/2024 16:22:33 Checkout: 11/22/2024 16:44:16 Dispo Type: Home (Routine DC) EVENTS: Event Name Event Status Request Date/Time Start Date/Time Complete Date/Time Arrive Complete 11/22/2024 16:22:33 11/22/2024 16:22:33 11/22/2024 16:22:33 Document Home Meds Request 11/22/2024 16:22:33 Triage Complete 11/22/2024 16:22:33 11/22/2024 16:31:35 11/22/2024 16:31:35 Bed Assign Complete 11/22/2024 16:27:17 11/22/2024 16:27:17 11/22/2024 16:27:17 Dr Exam Complete 11/22/2024 16:27:17 11/22/2024 16:28:12 11/22/2024 16:28:12 RN Exam Complete 11/22/2024 16:27:17 11/22/2024 16:35:27 11/22/2024 16:35:27 Registration Request 11/22/2024 16:28:12 Meds Admin Complete 11/22/2024 16:32:41 11/22/2024 16:43:16 Discharge Complete 11/22/2024 16:39:28 11/22/2024 16:44:22 11/22/2024 16:44:22 Transfer Complete 11/22/2024 16:44:22 11/22/2024 16:44:22 11/22/2024 16:44:22 [facility] [place] [id number] PHYS DOC NOTES: MEDICAL INFORMATION: Prescriptions Given: Medications to Continue with No Changes Other Medications cyclobenzaprine (cyclobenzaprine 10 mg Tab) 1 Tablets By Mouth 3 times a day as needed for spasm. Refills: 1. duloxetine (Cymbalta 60 mg oral delayed release capsule) 1 Capsules By Mouth every day. Refills: 5. duloxetine (duloxetine 30 mg oral delayed release capsule) 1 Capsules By Mouth every day. Refills: 11. hydrochlorothiazide (hydrochlorothiazide 25 mg Tab) 1 Tablets By Mouth every day. Refills: 3. hydrOXYzine (hydrOXYzine hydrochloride 25 mg Tab) 25 Milligram By Mouth Once. Refills: 4. ibuprofen (ibuprofen 800 mg Tab) 1 Tablets By Mouth 3 times a day. Refills: 0. Misc Prescription (handicap placard) dispense 1 handicap placard. expires: 11/03/2034. Refills: 0. omeprazole (omeprazole 40 mg Cap-DR) 1 Capsules By Mouth 2 times a day. Refills: 3. ondansetron (Zofran 4 mg Tab) 1 Tablets By Mouth every 8 hours as needed Nausea/Vomiting. Refills: 1. oxycodone (oxyCODONE 10 mg ER Tab) 1 Tablets By Mouth every 12 hours as needed severe pain. tirzepatide (Zepbound 2.5 mg/0.5 mL subcutaneous solution) 2.5 Milligram Subcutaneous every week. Refills: 1. tirzepatide (Zepbound 2.5 mg/0.5 mL subcutaneous solution) 2.5 Milligram Subcutaneous every week. Refills: 3. zolpidem (Ambien 10 mg Tab) 1 Tablets By Mouth once a day (at bedtime) as needed for sleep. Refills: 5. PATIENT EDUCATION INFORMATION: Instructions: Chronic Back Pain Follow up: With: Address: When: KRISTAN LAU [address] [place] [address] Gravitant (1[employer]lec In 3 days 11/25/2024 Comments: Call Dr for diagnosis based follow up DIAGNOSIS: Chronic back pain; Other chronic painNormalPrem[facility] Patient Summaryon [id number] Patient SummaryED Patient Summary [address] [address] Patient Discharge Instructions Person Information Name: JERAD TRACY Age: 49 Years Arrival Date: 11/22/2024 16:22:33 Discharge Diagnosis: Chronic back pain; Other chronic pain Primary Care Physician: FLOR JONES Provider Information Primary Provider: Advanced Dietetic Intern:Landon Tidwell PA-C The exam and treatment you received in the Emergency Department were for an urgent problem and are not intended as complete care. It is important that you follow up with a doctor, nurse practitioner,or physician???s construction assistant for ongoing care. If your symptoms become worse or you do not improve asexpected and you are unable to reach your usual health care provider, you should return to the Emergency Department. We are available 24 hours a day. JERAD TRACY has been given the following list of patient education materials, prescriptions andfollow-up instructions: Follow-up Instructions: With: Address: When: KRISTAN LAU [address] [facility] [address] [place] [address] Business (1) In 3 days 11/25/2024 Comments: Call Dr for diagnosis based follow up In the event that this physician does not participate in your insurance network, please consult with your insurance company to find a nearby participating provider. Patient Education Materials: Chronic Back Pain A MESSAGE TO ALL PATIENTS REGARDING OPIOIDS PRESCRIPTION OPIOIDS: WHAT YOU NEED TO KNOW Prescription opioids can be used to help relieve xxmmddkf-bm-uaolss pain and are often prescribed following a [...] guidance from the Food and Drug Administration (www.fda.gov/Drugs/ResourcesForYou). ??? Visit www.cdc.gov/drugoverdose to learn about the risks of opioids abuse and overdose. ??? If you believe you may be struggling (more content not included)...Normal [facility]ED Clinical Summaryon [id number] Clinical Summary [address] [address] ED Clinical Summary Person Information Name: Jerad Tracy/[facility] Age: 49 Years : 1975 Sex: Female PCP: Marital Status: Phone: Race: White Ethnicity: Not or Language: Malagasy Visit Reason: Back pain; back pain Acuity: 4 Enc Type: Emergency Med Service: Emergency Medicine Arrival: 11/21/2024 12:59:24 Discharge: 11/21/2024 14:11:00 LOS: 000 01:12 Checkin: 11/21/2024 12:59:24 Checkout: 11/21/2024 14:11:00 Dispo Type: Home or Self Care Address: [address] [place] [phone] Provider Notes: Diagnosis: 1:Acute on chronic low back pain Problems Active Hep C w/ coma, chronic Smoking Status: Smoking Status 5-9 cigarettes (between 1/4 to 1/2 pack)/day in last 30 days Functional Status: Sensory Deficits: History of Falls: Mobility Assistance Prior to Admission: ADLs: Current Level of Assistance for Self-Care/Mobility: Cognitive Status: Allergies HYDROcodone (hives) penicillin (hives) gabapentin (Migraines) acetaminophen containing compounds (Liver failure) Lyrica (Edema) Laboratory or Other Results This Visit (last charted value for your 11/21/2024 visit) No Laboratory or Other Results This Visit Measurements: Height: Weight: 117 kg Blood Pressure: /88 mmHg BMI: Procedures No Procedures Documented Immunizations No Immunizations Documented This Visit Final Med List: Medications that have not changed Other Medications dicyclomine (Bentyl 10 mg oral capsule) 1 Capsules Oral (given by mouth) 3 times a day as needed abdominal spasms for 7 Days. Refills: 0. Last Dose: esomeprazole (NexIUM 20 mg oral delayed release capsule) 1 Capsules Oral (given by mouth) every day. Last Dose: methylPREDNISolone (Medrol Dosepak 4 mg oral tablet) 1 Packets Oral (given by mouth) As Indicated for 6 Days. as directed on package labeling. Refills: 0. Last Dose: ondansetron (Zofran 4 mg oral tablet) 1 Tabs Oral (given by mouth) every 8 hours as needed as needed for nausea/vomiting. Refills: 0. Last Dose: Other Medications dicyclomine (Bentyl 10 mg oral [...] Refills: 0. Care Team Members: Attending Physician: Consulting Physician: Referring Physician: Provider Role Assigned Unassigned Chandana Marques ED Nurse 11/21/2024 13:05:10 Dory Castañeda PA-C ED MidLevel 11/21/2024 13:05:14 Follow up: With: Address: When: Physician Referral Line Comments: [facility] Referral Line [phone] to establish PCP With: Address: When: Emergency Department Comments: Return to Emergency Department immediately for any new or worsening smyptoms, or if symptoms last longer than discussed. Discharge Orders: Discharge Patient 11/21/24 13:16:00 EDT, Discharge to Home, Self, Acute on chronic low back pain Patient Education Information: BACK CARE TIPS [facility] Poison Help line: . [facility] Hotline: [place] Tobacco Quit Line: [facility] ([place], [place]) [address]: [phone] [facility] ([place], [place]) [address]: [phone] [facility] [address] [place], [place]: [phone] [facility] CenterED Note-Physicianon [id number] Note-Physician Chief Complaint lower left sided back pain, does not radiate anywhere. similar to previous episodes. pt due for pain pump in 6 days History of Present Illness Patient is a 49-year-old female with a history of lumbar bulging disc presenting to the emergency department for low back pain. Patient states she is awaiting a pain pump to be placed in approximately 6 days for her chronic low back pain due to bulging disks at L4-L5. She was supposed to have this placed last month but there was a delay in her surgery. She has a prescription for oxycodone 10 mg 3times daily but states she was asked to hold this medication approximately 2 weeks prior to her surgery so that she had no opioids in her system when they placed the pain pump. Patient lives in the [place] area, her son lives here in [place] which is why she came here and she does not have her prescription to use to help with her pain. Currently 6 out of 10 pain. No injuries. Same chronic ongoingpain. No loss of bowel or bladder function, no numbness in the saddle region. Patient is not experiencing any headache, fevers, shortness of breath, chest pain, nausea, vomiting, abdominal pain, urinary stool changes. Review of Systems As reviewed in the HPI. All other systems reviewed are negative or normal Physical Exam CONSTITUTIONAL: [well appearing in no [...] mood and affect] Vitals & Measurements T: 36.7 ?C (Oral) HR: 95 (Peripheral) RR: 17 BP: 122/88 SpO2: 98% HT: 160 cm WT: 117 kg (Dosing) Additional Vitals No qualifying data available. Procedure No qualifying data available. ASA Documentation Medical Decision Making This note has been created using [employer] voice recognition software. Grammatical errors, random words, pronoun errors and incomplete sentences are occasional consequences of this technology due to software limitations. If questions or concerns regarding content of this note or information contained within the body of this dictation, please contact me directly. Patient is a 49-year-old female with a history of lumbar bulging disc presenting to the emergency department for low back pain. Resting comfortably in no acute distress vital signs stable. Patient is rocking slightly qlqu-ydu-pclsf secondary to pain. No tenderness noted over the lumbar spinous process, tenderness in the bilateral paraspinal region. Patient's chart was reviewed on previous visits she has used the same verbiage that she is 6 days away from a pain pump surgery. Patient's OARRS report is significant. Oxycodone 10 mg was last filledby patient 19 days ago for a 30-day supply. Information about OARRS report was discussed with patient. She states she has not been taking this medication and did leave it at home as she lives in [place]. Address does align with patient's demographics. Did discuss with patient I am uncomfortable giving her anything outside of the emergency dep artment. Will give a small amount of morphine. Patient also asked for Toradol along with the morphine. Provider agreed. The patient received an opioid medication or prescription. Risks were discussed with the patient and friend or family members present. The patient was informed to not drive, drink alcohol, take othersedative medication or operate machinery for at least 6 hours after use and until medication effects are gone. The patient was informed that if they do not finished the prescription, then they need to dispose of a properly, and it cannot be taken by anyone else but the patient was prescribed to. OARRS report was reviewed The nurse was instructed to provide written instructions and appropriate follow- up information. Thepatient understands their need and responsibility to obtain additional follow-up as instructed. Therisks of medications administered and prescribed were discussed with the patient and family present. Patient was seen and evaluated by myself and in collaboration with Dr. Pepe while in the ED. Reexamination/Reevaluation Patient is resting comfortably at discharge. Vital signs stable. Assessment/Plan 1. Acute on chronic low back pain Ordered: Discharge Patient Orders: ketorolac, 30 mg, IM, Injection, Once, First Dose: 11/21/24 13:15:00 EDT, Stop Date: 11/21/24 13:15:00 EDT, Dispense From [place] [facility] [place]/21/24 13:15:00 EDT morphine, 2 mg, IM, Injection, Once, First Dose: 11/21/24 13:15:00 EDT, Stop Date: (more content not included)...Normal[facility] APTTon [id number] Coag (PPP) [Time]25.8 sBon [facility] on above:Effective 01/27/2020: Heparin Therapeutic Range: 64.0 98.0 seconds. CBC With Platelet No Differentialon [id number] distribution width (RBC) [Ratio]14.5 %Hdjawv06.5-14.5Bon [facility] on above: Performed By: #### CBCND #### [facility] [address] [place] [address] Nhgwdhfuwe (Bld) [Volume fraction]44.8 %Zulemo52.0-47.0Bon [facility] on above:Performed By: #### CBCND #### [facility] [address] [place] [address] Ksblozetsa (Bld) [Mass/Vol]14.6 g/mEUsdtja69.0-16.0[facility] on above:Performed By: #### CBCND #### [facility] [address] [place] [address] CTZ (RBC) [Entitic mass]29.4 ijMqvzlx57.0-31.3Bon [facility] on above:Performed By: #### CBCND #### [facility] [address] [place] [address] VEHB30.6 %Low33.0-37.0[facility] Hospital[facility] on above: Performed By: #### CBCND #### [facility] [address] [place] [address] PLX (RBC) [Entitic vol]90.3 lAVyvraj75.4-94.8Bon [facility] HospitalComment on above:Performed By: #### CBCND #### [facility] [address] [place] [address] Psbaiitfg (Bld) [#/Vol]391 10*3/sQPjdeaj794-666Qux [facility] on above:Performed By: #### CBCND #### [facility] [address] [place] [address] ZDG (Bld) [#/Vol]4.96 10*6/uLNormal4.20-5.40Bon [facility] Comment on above:Performed By: #### CBCND #### [facility] [address] [place] [address] QBK (Bld) [#/Vol]8.2 10*3/uLNormal4.8-10.8Bon [facility] Comment on above:Performed By: #### CBCND #### [facility] [address] [place] [address] IXM panel Auto (Bld)on 24-01-3164Lsfuzlbbfhtrcn and review of laboratory resultsAbnormalBon [facility] (RBC) [Mass/Vol]32.6 %Low 33.0 - 37.0 %[facility] HealthBon [facility] HospitalED Clinical Summary on [id number] Clinical SummaryED Clinical Summary [address] [address] ED Clinical Summary Person Information Name: JERAD TRACY [place] Age: 49 Years : 1975 Sex: Female Language: Malagasy PCP: FLOR JONES Marital Status: Visit Id: Visit Reason: Back pain; LOWER BACK PAIN Speciality: Acuity: 4 Enc Type: Emergency Med Service: Emergency Arrival: 11/20/2024 09:39:45 Discharge: 11/20/2024 10:48:18 LOS: 000 01:09 Checkin: 11/20/2024 09:39:45 Checkout: 11/20/2024 10:48:18 Dispo Type: Home (Routine DC) EVENTS: Event Name Event Status Request Date/Time Start Date/Time Complete Date/Time Arrive Complete 11/20/2024 09:39:45 11/20/2024 09:39:45 11/20/2024 09:39:45 Document Home Meds Request 11/20/2024 09:39:45 Triage Complete 11/20/2024 09:39:45 11/20/2024 09:55:05 11/20/2024 09:55:05 Bed Assign Complete 11/20/2024 09:51:50 11/20/2024 09:51:50 11/20/2024 09:51:50 Dr Exam Complete 11/20/2024 09:51:50 11/20/2024 09:54:19 11/20/2024 09:54:19 RN Exam Complete 11/20/2024 09:51:50 11/20/2024 10:02:43 11/20/2024 10:02:43 Registration Complete 11/20/2024 09:54:19 11/20/2024 10:23:11 11/20/2024 10:23:11 Dr Exam Complete 11/20/2024 09:57:49 11/20/2024 09:57:49 11/20/2024 09:57:49 Meds Admin Complete 11/20/2024 10:22:40 11/20/2024 10:35:50 Reg Complete Request 11/20/2024 10:23:11 Reg Bed Request Complete 11/20/2024 10:23:11 11/20/2024 10:23:11 11/20/2024 10:23:11 Discharge Complete 11/20/2024 10:24:20 11/20/2024 10:48:26 11/20/2024 10:48:26 Transfer Complete 11/20/2024 10:48:26 11/20/2024 10:48:26 11/20/2024 10:48:26 [facility] [place] [id number] PHYS DOC NOTES: MEDICAL INFORMATION: Prescriptions Given: Medications to Continue with No Changes Other Medications cyclobenzaprine (cyclobenzaprine 10 mg Tab) 1 Tablets By Mouth 3 times a day as needed for spasm. Refills: 1. duloxetine (Cymbalta 60 mg oral delayed release capsule) 1 Capsules By Mouth every day. Refills: 5. duloxetine (duloxetine 30 mg oral delayed release capsule) 1 Capsules By Mouth every day. Refills: 11. hydrochlorothiazide (hydrochlorothiazide 25 mg Tab) 1 Tablets By Mouth every day. Refills: 3. hydrOXYzine (hydrOXYzine hydrochloride 25 mg Tab) 25 Milligram By Mouth Once. Refills: 4. ibuprofen (ibuprofen 800 mg Tab) 1 Tablets By Mouth 3 times a day. Refills: 0. Misc Prescription (handicap placard) dispense 1 handicap placard. expires: 11/03/2034. Refills: 0. omeprazole (omeprazole 40 mg Cap-DR) 1 Capsules By Mouth 2 times a day. Refills: 3. ondansetron (Zofran 4 mg Tab) 1 Tablets By Mouth every 8 hours as needed Nausea/Vomiting. Refills: 1. oxycodone (oxyCODONE 10 mg ER Tab) 1 Tablets By Mouth every 12 hours as needed severe pain. tirzepatide (Zepbound 2.5 mg/0.5 mL subcutaneous solution) 2.5 Milligram Subcutaneous every week. Refills: 1. tirzepatide (Zepbound 2.5 mg/0.5 mL subcutaneous solution) 2.5 Milligram Subcutaneous every week. Refills: 3. zolpidem (Ambien 10 mg Tab) 1 Tablets By Mouth once a day (at bedtime) as needed for sleep. Refills: 5. PATIENT EDUCATION INFORMATION: Instructions: Chronic Back Pain Follow up: With: Address: When: KRISTAN LAU In 3 days 11/23/2024 DIAGNOSIS: Chronic back pain; Other chronic painNormalFisher Pollock Medical CenterED Note-Physicianon [id number] Note-PhysicianED Note-Physician Basic Information Time Seen: Robert Taylor PA-C 11/20/2024 09:54 Chief Complaint Pt presents to ED with low back pain. History of Present Illness 49-year-old female comes to the ED for evaluation of back pain. She is a longstanding history of chronic back pain with frequent ED presentations for exacerbations. Does follow with pain management and currently awaiting appointment to have a pain pump implanted. She presents acute on chronic pain. She denies any new or unusual symptoms. No recent trauma. Review of Systems A 10 point review of systems is negative except as noted above. Medical and Surgical History: Reviewed and noted Social history: Lives at home Tobacco: Denies Physical Exam Vitals & Measurements T: 36.9 ???C(Oral) HR: 93(Peripheral) RR: 18 BP: 141/99 SpO2: 97% HT: 160 cm WT: 117.1 kg BMI: 45.74 Nurses notes and vital signs reviewed and patient is not hypoxic. General: The patient appears well, resting comfortably. Skin: Warm, dry. Head: Atraumatic. Neck: No JVD. Eye: Normal conjunctiva. Ears, Nose, Mouth, and Throat: Moist mucous membranes. Cardiovascular: Strong distal pulses. Chest wall: Respiratory: Respirations are nonlabored. Back: Normal range of motion. Musculoskeletal: Normal ROM with no gross deformity. Gastrointestinal: Urological: Neurological: Awake and alert. No focal deficits. Follows commands. Psychiatric: Cooperative. Medical Decision Making Patient presents acute on chronic back pain. She is awake alert nontoxic. No recent trauma for imaging. No evidence of neurovascular compromise. States today's pain is consistent with her chronic issues. She is medicated and discharged home to follow-up with her pain management physician. Patient was encouraged to return to the ED if symptoms worsen or change. Assessment/Plan Chronic back pain (M54.9: Dorsalgia, unspecified) Other chronic pain (G89.29: Other chronic pain) Orders: morphine, 8 mg = 2 mL, Injection, IntraMuscular, Once, Stop date 11/20/24 10:22:00 EDT, STAT, Startdate 11/20/24 10:22:00 EDT, 11/20/24 10:22:00 EDT Medications Administered Given morphine 4 mg/mL Inj, 8 mg, IntraMuscular Disposition Plan Patient Discharge Condition Disposition: Discharged home Condition: Improved and stable Counseled: Patient and/or family were counseled to workup, results, treatment plan and follow-up recommendations Discharge Prescription List Prescriptions No active prescription medications Follow-up With When Contact Information KRISTAN LAU In 3 days 11/23/2024 EDT Additional Instructions: Patient Education Chronic Back Pain Attestation I performed a substantive part of the MDM during the patient???s E/M visit. I personally made or approved the documented management plan and acknowledge its risk of complications. (Independent Interpretation) My (EKG/X-Ray/US/CT) interpretation as above. (Discussion) Management/test interpretation discussed with APC. This report was transcribed using voice recognition software. Every effort was made to ensure accuracy, however, inadvertently computerized bill recapitulation clerk mistakes may be present. Appropriate healthcare PPE was used in evaluating this patient. Problem List/Past Medical History Ongoing Arthritis of first carpometacarpal joint of right hand Bipolar disorder Chronic back pain Chronic hepatitis C Closed fracture of trapezoidal bone of wrist COVID-19 Diarrhea Disease of liver Drug therapy finding Edema Elevated blood pressure reading Encounter for screening mammogram for breast cancer Fatigue HTN (hypertension) Migraine Morbid obesity with BMI of 45.0-49.9, adult Obesity Screening for cardiovascular condition Smoker Smoker Tendonitis of right wrist Weight gain Wellness examination Historical Bipolar Continuous opioid dependence Hepatitis C Liver disease Lyme disease Migraines Procedure/Surgical History Hysterectomy (2010), History of cholecystectomy, Hysterectomy, lap x 7, Tonillectomy with adenoids. Medications Inpatient No active inpatient medications Home Ambien 10 mg Tab, 10 mg= 1 tab(s), Oral, Once a day (at bedtime), PRN, 5 refills cyclobenzaprine 10 mg Tab, 10 mg= 1 tab(s), Oral, TID, PRN, 1 refills Cymbalta 60 mg oral delayed release capsule, 60 mg= 1 cap(s), Oral, Daily, 5 refills duloxetine 30 mg oral delayed release capsule, 30 mg= 1 cap(s), Oral, Daily, 11 refills handicap placard, See Instructions hydrochlorothiazide 25 mg Tab, 25 mg= 1 tab(s), Oral, Daily, 3 refills hydrOXYzine hydrochloride 25 mg Tab, 25 mg, Oral, Once, 4 refills ibuprofen 800 mg Tab, 800 mg= 1 tab(s), Oral, TID omeprazole 40 mg Cap-DR, 40 mg= 1 cap(s), Oral, BID, 3 refills oxyCODONE 10 mg ER Tab, 10 mg= 1 tab(s), Oral, q12hr, PRN Zepbound 2.5 mg/0.5 mL subcutaneous solution, 2.5 mg, SubCutaneous, qWeek, 3 refills Zepbound 2.5 mg/0.5 mL subcutaneous solution, 2.5 mg, SubCut (more content not included)...[facility] HospitalComment on above:Result Comment: Electronically Signed By: Robert Taylor PA-C\.br\Date and Time Signed: 11/20/2509:42 EDT\.br\Electronically Co-Signed By: Annette Watkins, Balbina Sparks\.br\Date and Time Co-Signed: 11/20/24 14:03 EDTED Patient Summaryon 11-20-2024 ED Patient SummaryED Patient Summary [place] [address] Patient Discharge Instructions Person Information Name: JERAD TRACY Age: 49 Years Arrival Date: 11/20/2024 09:39:45 Discharge Diagnosis: Chronic back pain; Other chronic pain Primary Care Physician: FLOR JONES Provider Information Primary Provider: Annette Watkins, Balbina Sparks Advanced Dietetic Intern:Robert Taylor PA-C The exam and treatment you received in the Emergency Department were for an urgent problem and are not intended as complete care. It is important that you follow up with a doctor, nurse practitioner,or physician???s construction assistant for ongoing care. If your symptoms become worse or you do not improve asexpected and you are unable to reach your usual health care provider, you should return to the Emergency Department. We are available 24 hours a day. JERAD TRACY has been given the following list of patient education materials, prescriptions andfollow-up instructions: Follow-up Instructions: With: Address: When: KRISTAN LAU In 3 days 11/23/2024 In the event that this physician does not participate in your insurance network, please consult with your insurance company to find a nearby participating provider. Patient Education Materials: Chronic Back Pain A MESSAGE TO ALL PATIENTS REGARDING OPIOIDS PRESCRIPTION OPIOIDS: WHAT YOU NEED TO KNOW Prescription opioids can be used to help relieve qwjoxyxh-bz-llokum pain and are often prescribed following a [...] guidance from the Food and Drug Administration (www.fda.gov/Drugs/ResourcesForYou). ??? Visit www.cdc.gov/drugoverdose to learn about the risks of opioids abuse and overdose. ??? If you believe you may be struggling with addiction, tell your health childcare aide and askfor guidance or call [facility]???S Abimael (more content not included)...[facility] HospitalHepatic Function Panelon 11-20-2024 Albumin [Mass/Vol]4.1 g/dL3.5 - 4.6 g/dLBon [facility] HealthALP [Catalytic activity/Vol]106 U/L40 - 130 U/LBon [facility] HealthALT [Catalytic activity/Vol]18 U/L0 - 33 U/LBon [facility] HealthAST [Catalytic activity/Vol]17 U/L0 - 35 U/LBon [facility] HealthBilirubin [Mass/Vol]0.4 mg/dL0.2 - 0.7 mg/dLBon [facility] HealthBilirubin.direct [Mass/Vol]mg/dL0.0 - 0.4 mg/dLBon [facility] HealthBilirubin.indirect [Mass/Vol]0.3 mg/dL0.0 - 0.6 mg/dLBon [facility] HealthProtein [Mass/Vol]7.0 g/dL6.3 - 8.0 g/dLBon [facility] HealthBon [facility] HealthLiver Panelon [id number] [Mass/Vol]4.1 g/dLNormal3.5-4.6MValley View HospitalComment on above: Performed By: #### LIVER #### [facility] [address] [place] [address] PMA [Catalytic activity/Vol]106 U/RIbmvmp26-301BjtqrCedar Springs Behavioral HospitalComment on above:Performed By: #### LIVER #### [facility] [address] [place] [address] QKH [Catalytic activity/Vol]18 U/LNormal0-33[facility] HospitalComment on above:Performed By: #### LIVER #### [facility] [address] [place] [address] KGJ [Catalytic activity/Vol]17 U/LNormal0-35[facility] HospitalComment on above:Performed By: #### LIVER #### [facility] [address] [place] [address] Arvoqvdgg [Mass/Vol]0.4 mg/dLNormal0.2-0.7[facility] HospitalComment on above:Performed By: #### LIVER #### [facility] [address] [place] [address] Voevajiqv Indirect0.3 mg/dLNormal0.0-0.6MValley View HospitalComment on above:Performed By: #### LIVER #### [facility] [address] [place] [address] Iiccvheyh.indirect [Mass/Vol]mg/dLNormal0.0-0.4[facility] HospitalComment on above:Performed By: #### LIVER #### [facility] [address] [place] [address] Ahragwr [Mass/Vol]7.0 g/dLNormal6.3-8.0[facility] Comment on above:Performed By: #### LIVER #### [facility] [address] [place] [address] Fq Panel Informationon [id number] SecBethesda North HospitalPartial Thromboplastin Timeon [id number] Coag (Bld) [Time]25.8 mHdrcwm64.4-36.8[facility] HospitalComment on above:Result Comment: Effective 01/27/2020: Heparin Therapeutic Range: 64.0 ? 98.0 seconds.Performed By: #### PTT #### [facility] [address] [place] [address] Uqdpqnmcylv Timeon [id number] Coag (PPP) [Relative time]1.0 {INR} NormalCedar Springs Behavioral HospitalComment on above:Performed By: #### PT #### [facility] [address] [place] [address] TI Coag (PPP) [Time]13.4 zSaoiac15.3-14.9[facility] HospitalComment on above:Performed By: #### PT #### [facility] [address] [place] [address] Egarihb-INRon [id number] Coag (PPP) [Relative time]1.0 {INR}[facility] HospitalPT Coag (PPP) [Time]13.4 sBon Secours [facility] Blanchard Valley HospitalED Prov Noteon [id number] Prov NoteED PROVIDER NOTE [facility] NAME: Jerad Tracy AGE: 49 y.o. : 1975 VISIT DATE: 11/19/2024 CSN: [id number] PCP: No, Physician Chief Complaint Patient presents with Back Pain 49-year-old female patient presents to the ER for evaluation acute on chronic lower back pain, patient states undergoing surgical intervention next Saturday, symptoms flared up over the last 24 hours. No fevers, no saddle anesthesia Past Medical History: Diagnosis Date Back pain Bulging lumbar disc L4-L5; SEVERE NARROWING OF L5-S1 Depression Past Surgical History: Procedure Laterality Date BACK SURGERY BUNIONECTOMY Bilateral 2022 CHOLECYSTECTOMY HYSTERECTOMY TONSILLECTOMY AND ADENOIDECTOMY TYMPANOSTOMY TUBE PLACEMENT No family history on file. Social History [1] Previous Medications Medication Sig FLUoxetine (PROZAC) 20 MG capsule Take 3 (three) capsules (60 mg total) by mouth daily . ibuprofen (ADVIL,MOTRIN) 800 MG tablet Take 1 (one) tablet (800 mg total) by mouth every 6 (six) hours as needed for pain . Allergies[2] Review of Systems All other systems reviewed and are negative. No data found. Physical Exam Vitals and nursing note reviewed. [...] range of motion and neck supple. Comments: Paralumbar tenderness Pulmonary: Effort: Pulmonary effort is normal. Breath [...] No results found for this visit on 11/19/24. No orders to display Procedures Medical Decision [...] packs/day: 0.50 Average packs/day: 0.5 packs/day for 30.9 years (15.4 ttl pk-yrs) Types: Cigarettes Start date: 12/28/1993 Smokeless tobacco: Never Vaping Use Vaping status: Never Used Substance and Sexual Activity Alcohol use: Never Drug use: Never Social Drivers of Health Financial Resource Strain: Low Risk (06/12/2024) Received from [facility] Overall Financial Resource Strain (CARDIA) Difficulty of Paying Living Expenses: Not hard at all Food Insecurity: No Food Insecurity (06/12/2024) Received from [facility] Hunger Vital Sign Worried About Running Out of Food in the Last Year: Never true Ran Out of Food in the Last Year: Never true Transportation Needs: No Transportation Needs (06/12/2024) Received from [facility] PRAPARE - Transportation Lack of Transportation (Medical): No Lack of Transportation (Non-Medical): No Physical Activity: Inactive (06/12/2024) Received from [facility] Exercise Vital Sign Days of Exercise per Week: 0 (more content not included)...NormalGrant Medical CenterED Clinical Summaryon [id number] Clinical SummaryED Clinical Summary [place] [id number] ED Clinical Summary Person Information Name: JERAD TRACY [place] Age: 49 Years : 1975 Sex: Female Language: Malagasy PCP: FLOR JONES Marital Status: Visit Id: Visit Reason: Medical problem - minor; Back pain; BACK PAIN - PT HORNER CHRONIC PAIN Speciality: Acuity: 4 Enc Type: Emergency Med Service: Emergency Arrival: 11/18/2024 11:16:41 Discharge: 11/18/2024 12:08:42 LOS: 000 00:52 Checkin: 11/18/2024 11:16:41 Checkout: 11/18/2024 12:08:42 Dispo Type: Home (Routine DC) EVENTS: Event Name Event Status Request Date/Time Start Date/Time Complete Date/Time Arrive Complete 11/18/2024 11:16:41 11/18/2024 11:16:41 11/18/2024 11:16:41 Document Home Meds Request 11/18/2024 11:16:41 Triage Complete 11/18/2024 11:16:41 11/18/2024 11:30:59 11/18/2024 11:30:59 Registration Complete 11/18/2024 11:17:50 11/18/2024 11:17:50 11/18/2024 11:17:50 Reg Complete Request 11/18/2024 11:17:50 Reg Bed Request Complete 11/18/2024 11:17:50 11/18/2024 11:17:50 11/18/2024 11:17:50 Bed Assign Complete 11/18/2024 11:31:06 11/18/2024 11:31:06 11/18/2024 11:31:06 Dr Exam Complete 11/18/2024 11:31:06 11/18/2024 11:32:26 11/18/2024 11:32:26 RN Exam Complete 11/18/2024 11:31:06 11/18/2024 11:46:33 11/18/2024 11:46:33 Registration Request 11/18/2024 11:32:26 Meds Admin Complete 11/18/2024 11:52:07 11/18/2024 11:55:37 Discharge Complete 11/18/2024 12:03:09 11/18/2024 12:08:47 11/18/2024 12:08:47 Transfer Complete 11/18/2024 12:08:47 11/18/2024 12:08:47 11/18/2024 12:08:47 ADDRESS: [address] [place] [address] [facility] [phone] PHYS DOC NOTES: MEDICAL INFORMATION: Prescriptions Given: Medications to Continue with No Changes Other Medications cyclobenzaprine (cyclobenzaprine 10 mg Tab) 1 Tablets By Mouth 3 times a day as needed for spasm. Refills: 1. duloxetine (Cymbalta 60 mg oral delayed release capsule) 1 Capsules By Mouth every day. Refills: 5. duloxetine (duloxetine 30 mg oral delayed release capsule) 1 Capsules By Mouth every day. Refills: 11. hydrochlorothiazide (hydrochlorothiazide 25 mg Tab) 1 Tablets By Mouth every day. Refills: 3. hydrOXYzine (hydrOXYzine hydrochloride 25 mg Tab) 25 Milligram By Mouth Once. Refills: 4. ibuprofen (ibuprofen 800 mg Tab) 1 Tablets By Mouth 3 times a day. Refills: 0. Misc Prescription (handicap placard) dispense 1 handicap placard. expires: 11/03/2034. Refills: 0. omeprazole (omeprazole 40 mg Cap-DR) 1 Capsules By Mouth 2 times a day. Refills: 3. ondansetron (Zofran 4 mg Tab) 1 Tablets By Mouth every 8 hours as needed Nausea/Vomiting. Refills: 1. oxycodone (oxyCODONE 10 mg ER Tab) 1 Tablets By Mouth every 12 hours as needed severe pain. tirzepatide (Zepbound 2.5 mg/0.5 mL subcutaneous solution) 2.5 Milligram Subcutaneous every week. Refills: 1. tirzepatide (Zepbound 2.5 mg/0.5 mL subcutaneous solution) 2.5 Milligram Subcutaneous every week. Refills: 3. zolpidem (Ambien 10 mg Tab) 1 Tablets By Mouth once a day (at bedtime) as needed for sleep. Refills: 5. PATIENT EDUCATION INFORMATION: Instructions: Chronic Back Pain Follow up: With: Address: When: KRISTAN LAU In 3 days 11/21/2024 Comments: Follow-up with your pain management doctor as well. Return to the emergency room if your pain gets worse, bowel or bladder incontinence, numbness/tingling in the saddle/groin area or any new symptoms. DIAGNOSIS: 1:Acute on chronic low back pain; Other chronic painNormalFisher Pollock Medical CenterED Note-Physicianon [id number] Note-PhysicianED Note-Physician Basic Information Time Seen: Balbina Bryant M.D. 11/18/2024 11:32 Chief Complaint pt presents to the ER with a flare to her lower back. patient states that she did not do anything that worsened the pain that she can think of. pt to get pain pump 12/14 History of Present Illness The patient is a 49-year-old female past medical history of chronic lower back pain who presented to the emergency room with exacerbation of her lower back. The patient states the pain has gotten worse today. She denies any recent injury. The patient states she is scheduled for a pain pump on December 14. The patient stated that she is on oxycodone and ibuprofen. The patient denies anybowel or bladder incontinence. She denies any saddle paresthesia. The patient states she has weakness on the left leg that is chronic. The patient denies any abdominal pain. She denies any burning with urination or hematuria. The patient denies any fever, denies any chills. The patient points to the left lumbosacral region for the pain. The patient denies any other associated symptoms. Review of Systems Additional ROS info: Except as noted in the above Review of Systems and in the History of Present Illness all other systems have been reviewed and are negative or noncontributory. Physical Exam Vitals & Measurements T: 36.7 ???C(Oral) HR: 84(Peripheral) RR: 16 BP: 133/91 SpO2: 95% HT: 160 cm WT: 117.1 kg BMI: 45.74 General: alert, no acute distress Skin: warm, dry Head: no trauma, normocephalic Neck: Trachea midline, no tenderness, supple Eye: normal conjunctiva, sclera clear ENMT: Oral mucosa moist Cardiovascular: regular rate and rhythm Respiratory: Lungs CTA, respirations non labored, breath sounds equal Gastrointestinal: soft, non distended, no tenderness, no guarding Back: Mild generalized tenderness on the left lumbosacral region, Normal ROM Extremities: no deformity, no trauma Neurological: Alert and oriented, mild weakness on the left lower leg which is chronic for patient.Speech normal Psychiatric: cooperative, affect appropriate for age Medical Decision Making MEDICAL DECISION MAKING Number and Complexity of Problems Differential Diagnosis: [] [facility] Data External documents reviewed: [] My EKG interpretation: [] My CT interpretation: [] My X-ray interpretation: [] My Ultrasound interpretation: [] Decision rules/scores evaluated: [] Discussed with: [] Treatment and Disposition ED Course: The patient presented with exacerbation of her lower back pain. She has no signs or symptoms of cauda equina syndrome. She does have some weakness in the left leg which is chronic for patient. The patient was given morphine. Will discharge patient home follow-up with her pain management doctor. She is instructed to return to the emergency room if her pain gets worse, bowel or bladder incontinence, saddle paresthesia or any new symptoms. Shared decision making: Patient and her family Code status: [] Assessment/Plan 1. Acute on chronic low back pain (M54.50: Low back pain, unspecified) Other chronic pain (G89.29: Other chronic pain) Orders: morphine, 6 mg = 1.5 mL, Injection, IntraMuscular, Once, Stop date 11/18/24 11:51:00 EDT, STAT, Start date 11/18/24 11:51:00 EDT, 11/18/24 11:51:00 EDT Medications Administered Given morphine 4 mg/mL Inj, 6 mg, IntraMuscular Disposition Plan Patient Discharge Condition Stable Discharge Disposition discharge home Discharge Prescription List Prescriptions No active prescription medications Follow-up With When Contact Information KRISTAN LAU In 3 days 11/21/2024 EDT Additional Instructions: Follow-up with your pain management doctor as well. Return to the emergency room if your pain gets worse, bowel or bladder incontinence, numbness/tingling in the saddle/groinarea or any new symptoms. Patient Education Chronic Back Pain Problem List/Past Medical History Ongoing Arthritis of first carpometacarpal joint of right hand Bipolar disorder Chronic back pain Chronic hepatitis C Closed fracture of trapezoidal bone of wrist COVID-19 Diarrhea Disease of liver Drug therapy finding Edema Elevated blood pressure reading Encounter for screening mammogram for breast cancer Fatigue HTN (hypertension) Migraine Morbid obesity with BMI of 45.0-49.9, adult Obesity Screening for cardiovascular condition Smoker Smoker Tendonitis of right wrist Weight gain Wellness examination Historical Bipolar Continuous opioid dependence Hepatitis C Liver disease Lyme disease Migraines Procedure/Surgical History Hysterectomy (2010), History of cholecystectomy, Hysterectomy, lap x 7, Tonillectomy with adenoids. Medications Inpatient No active inpatient medications Home Ambien 10 mg Tab, 10 mg= 1 tab(s), Oral, Once a day (at bedtime), PRN, 5 refills cyclobenzaprine 10 mg Tab, 10 mg= 1 tab(s), (more content not included)...Normal [facility] HospitalComment on above:Result Comment: Electronically Signed By: Annette Watkins, Balbina Sparks\.br\Date and Time Signed: 11/19/2511:05 EDTED Patient Summaryon [id number] Patient SummaryED Patient Summary [place] [id number] Patient Discharge Instructions Person Information Name: JERAD TRACY Age: 49 Years Arrival Date: 11/18/2024 11:16:41 Discharge Diagnosis: 1:Acute on chronic low back pain; Other chronic pain Primary Care Physician: FLOR JONES Provider Information Primary Provider: Balbina Bryant M.D. Advanced Dietetic Intern:None The exam and treatment you received in the Emergency Department were for an urgent problem and are not intended as complete care. It is important that you follow up with a doctor, nurse practitioner,or physician???s construction assistant for ongoing care. If your symptoms become worse or you do not improve asexpected and you are unable to reach your usual health care provider, you should return to the Emergency Department. We are available 24 hours a day. JERAD TRACY has been given the following list of patient education materials, prescriptions andfollow-up instructions: Follow-up Instructions: With: Address: When: KRISTAN LAU In 3 days 11/21/2024 Comments: Follow-up with your pain management doctor as well. Return to the emergency room if your pain gets worse, bowel or bladder incontinence, numbness/tingling in the saddle/groin area or any new symptoms. In the event that this physician does not participate in your insurance network, please consult with your insurance company to find a nearby participating provider. Patient Education Materials: Chronic Back Pain A MESSAGE TO ALL PATIENTS REGARDING OPIOIDS PRESCRIPTION OPIOIDS: WHAT YOU NEED TO KNOW Prescription opioids can be used to help relieve zjqgntfv-ug-xuwuyk pain and are often prescribed following a [...] guidance from the Food and Drug Administration (www.fda.gov/Drugs/ResourcesForYou). ??? Visit www.cdc (more content not included)...[facility] License Of [facility] Centers[facility] Medical CenterED Note-Physicianon [id number] Note-PhysicianED Note-Physician Basic Information Time Seen: Matthew MILES, Zhane Enriquez 11/11/2024 08:34 Chief Complaint chronic back pain flare up History of Present Illness Patient is a 49-year-old female with a history of chronic back pain who presents to the ED with acute on chronic back pain. Patient denies any known injury or trauma. She is well-known here in the ED. Patient states she is taking oxycodone prescribed by pain management, Dr. Calero. She notes she did take this this morning with out relief in symptoms. Patient states she is scheduled to have a pain pump placed in 1.5 weeks. She notes pain today is consistent with acute flares. Patient notes it is located to her left lower back and radiates down the posterior aspect of the left thigh mid thigh. Patient states the acute flare is due to the weather. She denies any fevers, abdominal pain, saddle anesthesia, change in urination, or loss of bowel control. Review of Systems A 10 point review of systems is negative except as noted above. Medical and Surgical History: Reviewed and noted Social history: Lives at home Family History: Reviewed. Tobacco: Denies Physical Exam Vitals & Measurements T: 36.8 ???C(Oral) HR: 104(Peripheral) RR: 18 BP: 138/81 SpO2: 96% HT: 160 cm WT: 123 kg BMI: 48.05 General: The patient appears well and in no apparent distress. Patient is resting comfortably on cart. Skin: Warm, dry, no pallor noted. Head: Normocephalic, atraumatic Neck: No JVD. No midline spinal tenderness to palpation, step-off, or crepitus. Full range of motion of the cervical spine. Eye: PERRLA, EOMI ENT: Moist mucus membranes Cardiovascular: Regular rate normal peripheral perfusion Respiratory: No respiratory distress no accessory muscle use no obvious audible wheezing Musculoskeletal: normal ROM, no deformity, no swelling. No CVA tenderness. Mild tenderness to palpation over the left lumbar paraspinal region diffusely. Full range of motion of the upper and lower extremities bilaterally. Sensation intact. GI: Soft no obvious distention. No rebound or rigidity. No guarding. No tenderness. Neurological: A&O moves all extremities equal strength and symmetry Psychiatric: Cooperative and appropriate Medical Decision Making Patient is a 49-year-old female with a history of chronic back pain who presents to the ED with acute on chronic back pain. Patient is hemodynamically stable and afebrile. No evidence of cauda equinasyndrome or infection. Patient is well- known in the ED for chronic back pain. Chart review shows she has been seen in the ED 7 times in 20 days. No new symptoms today. Patient is following with pain management and receiving oxycodone. As this is chronic pain without new injuries/symptoms, imaging is not warranted. Toradol and Kenalog are ordered. Patient declined the Toradol but accepted the Kenalog. Patient was upset and requesting morphine. I discussed with her that narcotics are not appropriate given this is chronic pain. I did offer an addition of Norflex. Patient was sitting on the chairrocking back and forth. When I walked into a different room, I did see the patient stand up and walk out of the ED without complications where she eloped. Assessment/Plan Acute on chronic low back pain (M54.50: Low back pain, unspecified) Drug-seeking behavior (Z76.5: Malingerer [conscious simulation]) Eloped from emergency department (Z53.21: Procedure and treatment not carried out due to patient leaving prior to being seen by health care provider) Other chronic pain (G89.29: Other chronic pain) Orders: ketorolac, 30 mg = 1 mL, Injection, IntraMuscular, Once, Stop date 11/11/24 8:57:00 EDT, STAT, Start date 11/11/24 8:57:00 EDT, 11/11/24 8:57:00 EDT triamcinolone, 40 mg = 1 mL, Susp-Inj, IntraMuscular, Once, Stop date 11/11/24 8:57:00 EDT, STAT, Start date 11/11/24 8:57:00 EDT, 11/11/24 8:57:00 EDT Medications Administered Given Kenalog 40 mg Injection, 40 mg, IntraMuscular Disposition Plan Patient Discharge Condition Stable Discharge Disposition Eloped from the ED Discharge Prescription List Prescriptions No active prescription medications Follow-up No qualifying data available Attestation Patient seen and evaluated by the physician construction assistant. Attending physician was present in the emergency department and supervised care. This visit was performed by both the physician and an APC. I performed all aspects of the MDM as documented. This report was transcribed using voice recognition software. Every effort was made to ensure accuracy, however, inadvertently computerized bill recapitulation clerk mistakes may be present. I performed a substantive part of the MDM during the patient???s E/M visit. I personally made or approved the documented management plan and acknowledge its risk of complications. (Independent Interpretation) My (EKG/X-Ray/US/CT as applicable) interpretation as above. (Discussion) Management/test interpretation discussed with APC. Problem List (more content not included)...[facility] Comment on above:Result Comment: Electronically Signed By: Zhane Castro PA-C\.br\Date and Time Signed: 11/11/2517:37 EDT\.br\Electronically Co-Signed By: Zhane Castro PA-C\.br\Date and Time Co-Signed: 11/11/24 18:37 EDT\.br\Electronically Co-Signed By: Cameron Rene DO\.br\Date and Time Co-Signed:11/12/24 07:10 EDTED Clinical Summaryon [id number] Clinical Summary ED Clinical Summary [place] [id number] ED Clinical Summary Person Information Name: JERAD TRACY Tasha/[facility] Age: 49 Years : 1975 Sex: Female Language: Malagasy PCP: FLOR JONES Marital Status: Visit Id: Visit Reason: Back pain; BACK PAIN Speciality: Acuity: 4 Enc Type: Emergency Med Service: Emergency Arrival: 11/11/2024 08:30:52 Discharge: 11/11/2024 10:27:54 LOS: 000 01:57 Checkin: 11/11/2024 08:30:52 Checkout: 11/11/2024 10:27:54 Dispo Type: Home (Routine DC) EVENTS: Event Name Event Status Request Date/Time Start Date/Time Complete Date/Time Arrive Complete 11/11/2024 08:30:52 11/11/2024 08:30:52 11/11/2024 08:30:52 Document Home Meds Request 11/11/2024 08:30:52 Triage Complete 11/11/2024 08:30:52 11/11/2024 08:35:08 11/11/2024 08:35:08 Bed Assign Complete 11/11/2024 08:32:34 11/11/2024 08:32:34 11/11/2024 08:32:34 Dr Exam Complete 11/11/2024 08:32:34 11/11/2024 08:34:13 11/11/2024 08:34:13 RN Exam Complete 11/11/2024 08:32:34 11/11/2024 08:45:03 11/11/2024 08:45:03 Registration Complete 11/11/2024 08:33:29 11/11/2024 08:33:29 11/11/2024 08:33:29 Reg Complete Request 11/11/2024 08:33:29 Reg Bed Request Complete 11/11/2024 08:33:29 11/11/2024 08:33:29 11/11/2024 08:33:29 Registration Request 11/11/2024 08:34:13 Meds Admin Complete 11/11/2024 08:57:29 11/11/2024 09:39:06 Meds Admin Request 11/11/2024 10:23:45 Discharge Complete 11/11/2024 10:28:09 11/11/2024 10:28:09 11/11/2024 10:28:09 Transfer Complete 11/11/2024 10:28:09 11/11/2024 10:28:09 11/11/2024 10:28:09 ADDRESS: [address] [place], [place] [address]Jazmine [facility] [id number] [facility] DOC NOTES: MEDICAL INFORMATION: Prescriptions Given: Medications to Continue with No Changes Other Medications cyclobenzaprine (cyclobenzaprine 10 mg Tab) 1 Tablets By Mouth 3 times a day as needed for spasm. Refills: 1. duloxetine (Cymbalta 60 mg oral delayed release capsule) 1 Capsules By Mouth every day. Refills: 5. duloxetine (duloxetine 30 mg oral delayed release capsule) 1 Capsules By Mouth every day. Refills: 11. hydrochlorothiazide (hydrochlorothiazide 25 mg Tab) 1 Tablets By Mouth every day. Refills: 3. hydrOXYzine (hydrOXYzine hydrochloride 25 mg Tab) 25 Milligram By Mouth Once. Refills: 4. ibuprofen (ibuprofen 800 mg Tab) 1 Tablets By Mouth 3 times a day. Refills: 0. Misc Prescription (handicap placard) dispense 1 handicap placard. expires: 11/03/2034. Refills: 0. omeprazole (omeprazole 40 mg Cap-DR) 1 Capsules By Mouth 2 times a day. Refills: 3. ondansetron (Zofran 4 mg Tab) 1 Tablets By Mouth every 8 hours as needed Nausea/Vomiting. Refills: 1. oxycodone (oxyCODONE 10 mg ER Tab) 1 Tablets By Mouth every 12 hours as needed severe pain. tirzepatide (Zepbound 2.5 mg/0.5 mL subcutaneous solution) 2.5 Milligram Subcutaneous every week. Refills: 1. tirzepatide (Zepbound 2.5 mg/0.5 mL subcutaneous solution) 2.5 Milligram Subcutaneous every week. Refills: 3. zolpidem (Ambien 10 mg Tab) 1 Tablets By Mouth once a day (at bedtime) as needed for sleep. Refills: 5. PATIENT EDUCATION INFORMATION: Instructions: Acute Back Pain, Adult Follow up: DIAGNOSIS: Acute on chronic low back pain; Eloped from emergency department; Other chronic painNormalPremier Health [facility] Patient Summaryon [id number] Patient SummaryED Patient Summary [place] [address] Patient Discharge Instructions Person Information Name: JERAD TRACY Age: 49 Years Arrival Date: 11/11/2024 08:30:52 Discharge Diagnosis: Acute on chronic low back pain; Eloped from emergency department; Other chronic pain Primary Care Physician: FLOR JONES Provider Information Primary Provider: Advanced Dietetic Intern:Zhane Castro PA-C The exam and treatment you received in the Emergency Department were for an urgent problem and are not intended as complete care. It is important that you follow up with a doctor, nurse practitioner,or physician???s construction assistant for ongoing care. If your symptoms become worse or you do not improve asexpected and you are unable to reach your usual health care provider, you should return to the Emergency Department. We are available 24 hours a day. JERAD TRACY has been given the following list of patient education materials, prescriptions andfollow-up instructions: Follow-up Instructions: In the event that this physician does not participate in your insurance network, please consult with your insurance company to find a nearby participating provider. Patient Education Materials: Acute Back Pain, Adult A MESSAGE TO ALL PATIENTS REGARDING OPIOIDS PRESCRIPTION OPIOIDS: WHAT YOU NEED TO KNOW Prescription opioids can be used to help relieve umawnwcs-dj-gqjwoh pain and are often prescribed following a [...] guidance from the Food and Drug Administration (www.fda.gov/Drugs/ResourcesForYou). ??? Visit www.cdc.gov/drugoverdose to learn about the risks of opioids abuse and overdose. ??? If you believe you may be struggling with addiction, tell your health childcare aide and askfor guidance or call [facility]???S [employer] Helpline at 3-624-368-CALO. (more content not included)...[facility] Noteon [id number] ATTENDING NOTE: NAME: Jerad Tracy CSN: [id number] 49 y.o. PCP: No, Physician History: Chief Complaint: Low Back Pain HPI: The history was obtained from the patient. Jerad is a 49 y.o. female who presents with a chief complaint of Low Back Pain. Patient has a history of chronic back pain. 2 days ago she woke up with increased left lower back pain which radiates to her left leg. She rates the pain 10/10 sharp constant worse with movement. She denies incontinence any injuries nor any other complaints ED Course / Medical Decision Making: ED COURSE: 49-year-old female presents with low back pain. She is given a dose of pain medication IM and will see her pain management doctor After reviewing the items above, I did look at previous medical documentation, such as recent hospitalizations, office visits, and/or recent consultations with PCP/specialist. SDOH: Another factor that I considered in Jerad's care was her Social Determinants of Health (SDOH). During this ED encounter, she did NOT appear to have any significant issues identified. Laboratory & Radiological Imaging (if done): Labs Reviewed - No data to display No orders to display Clinical Impression: 1. Strain of lumbar region, initial encounter ROS: Review of Systems Musculoskeletal: Positive for back pain. Positives and pertinent negatives as per HPI. All other systems were reviewed and are negative. Physical Exam: Patient Vitals for the past 24 hrs: BP Temp Pulse Resp SpO2 Height Weight 11/11/24 1456 -- -- -- 17 -- -- -- 11/11/24 1304 (!) 160/96 -- -- -- -- -- -- 11/11/24 1302 -- 98.3 degrees F (36.8 degrees C) 98 18 99 % 5' 3 120.2 kg (265 lb) Physical Exam Vitals and nursing note reviewed. Constitutional: General: She is in acute distress. HENT: Head: Normocephalic and atraumatic. Nose: Nose normal. Mouth/Throat: Mouth: Mucous membranes are moist. Pharynx: Oropharynx is clear. Eyes: Conjunctiva/sclera: Conjunctivae normal. Pupils: Pupils are equal, round, and reactive to light. Cardiovascular: Rate and Rhythm: Normal rate and regular rhythm. Heart sounds: Normal heart sounds. Musculoskeletal: Back: Pulmonary: Effort: Pulmonary effort is normal. Breath sounds: Normal breath sounds. Abdominal: General: Abdomen is flat. Palpations: Abdomen is soft. Skin: General: Skin is warm and dry. Neurological: General: No focal deficit present. Mental Status: She is alert and oriented to person, place, and time. Psychiatric: Mood and Affect: Mood normal. Behavior: Behavior normal. Procedures I did personally review Jerad's past medical history, surgical history, social history, as well as family history (when relevant). In this case, I also oversaw the her drug management by reviewing her medication list, allergy list, as well as the medications that I prescribed during the ED course and/or recommended as an out-patient (including possible OTC medications such as acetaminophen, NSAIDs , etc). Her past medical problem list included: Active Ambulatory Problems Diagnosis Date Noted No Active Ambulatory Problems Resolved Ambulatory Problems Diagnosis Date Noted No Resolved Ambulatory Problems Past Medical History: Diagnosis Date Back pain Bulging lumbar disc Depression ED MEDICATIONS GIVEN: Medications HYDROmorphone (DILAUDID) injection 2 mg (2 mg Intramuscular Given 11/11/24 2777) Disposition: ED Disposition ED Disposition Discharge Condition Stable Comment Jerad Tracy discharged to home/self care in stable condition. PMHx: Past Medical History: Diagnosis Date Back pain Bulging lumbar disc L4-L5; SEVERE NARROWING OF L5-S1 Depression PMSx: Past Surgical History: Procedure Laterality Date BACK SURGERY BUNIONECTOMY Bilateral 2022 CHOLECYSTECTOMY HYSTERECTOMY TONSILLECTOMY AND ADENOIDECTOMY TYMPANOSTOMY TUBE PLACEMENT FAM. Hx: History reviewed. No pertinent family history. SOC. Hx: Social History [1] MEDs: Previous Medications Medication Sig FLUoxetine (PROZAC) 20 MG capsule Take 3 (three) capsules (60 mg total) by mouth daily . ibuprofen (ADVIL,MOTRIN) 800 MG tablet Take 1 (one) tablet (800 mg total) by mouth every 6 (six) hours as needed for pain . ALL: Allergies[2] Mesha De Souza MD ED Attending Physician [facility] EMERGENCY DEPARTMENT [1] Social History Socioeconomic History Marital status: Legally Tobacco Use Smoking status: Every Day Current packs/day: 0.50 Average packs/day: 0.5 packs/day for 30.9 years (15.4 ttl pk-yrs) Types: Cigarettes Start date: 12/28/1993 Smokeless tobacco: Never Vaping Use Vaping status: Never Used Substance and Sexual Activity Alcohol use: Never Drug use: Never Social Drivers of Health Financial Resource Strain: Low Risk (06/12/2024) Received from [facility] (more content not included)...[facility] L[facility] SP[facility] WO IV CONTRASTon [id number] LUMBAR SPINE WO IV CONTRASTInterpreted By: Sona Strange and Rohan Mendoza STUDY: CT LUMBAR SPINE WO IV CONTRAST; 11/10/2024 1:27 am INDICATION: Signs/Symptoms:1 week history acutely worsening back pain, known lumbar radiculopathy, no saddle anesthesia, no loss of bowel or bladder. COMPARISON: MRI lumbar spine 08/29/2024. CT lumbar spine 08/28/2024. ACCESSION NUMBER(S): [id number] ORDERING CLINICIAN: ANTONIETA REYNA TECHNIQUE: Axial noncontrast images of the lumbar spine with coronal and sagittal reconstructed images. FINDINGS: PARASPINAL SOFT TISSUES: Redemonstration of soft tissue edema at the paraspinal soft tissues. ALIGNMENT: No traumatic malalignment or traumatic facet widening. VERTEBRAE: Status post L4 left hemilaminectomy. No acute fracture. INTERVERTEBRAL DISCS: Degenerative disc disease with vacuum disc phenomenon at L4-L5. Facet arthropathy at L4-L5. NEURAL FORAMINA: Moderate bilateral neural foraminal stenosis at the L4-L5 level. VISUALIZED ABDOMEN: There is a 2.3 x 1.5 cm low-attenuation nodule at the right adrenal gland, suggestive of an adenoma. There are bilateral tubal ligation clips. IMPRESSION: 1. No acute fracture at the lumbar spine. Postsurgical and degenerative changes at L4-L5. I personally reviewed the images/study and I agree with the findings as stated. MACRO: None. Signed by: Sona Strange 11/10/2024 5:34 AM Dictation workstation: [id number] HospitalCT Lumbar spine WO contraston . No acute fracture at the lumbar spine. Postsurgical and degenerative changes at L4-L5. I personally reviewed the images/study and I agree with the findings as stated. MACRO: None. Signed by: Sona Strange 11/10/2024 5:34 AM Dictation workstation: [id number] MMODALInterpreted By: Sona Strange and Rohan Mendoza STUDY: CT LUMBAR SPINE WO IV CONTRAST; 11/10/2024 1:27 am INDICATION: Signs/Symptoms:1 week history acutely worsening back pain, known lumbar radiculopathy, no saddle anesthesia, no loss of bowel or bladder. COMPARISON: MRI lumbar spine 08/29/2024. CT lumbar spine 08/28/2024. ACCESSION NUMBER(S): [id number] ORDERING CLINICIAN: ANTONIETA REYNA TECHNIQUE: Axial noncontrast images of the lumbar spine with coronal and sagittal reconstructed images. FINDINGS: PARASPINAL SOFT TISSUES: Redemonstration of soft tissue edema at the paraspinal soft tissues. ALIGNMENT: No traumatic malalignment or traumatic facet widening. VERTEBRAE: Status post L4 left hemilaminectomy. No acute fracture. INTERVERTEBRAL DISCS: Degenerative disc disease with vacuum disc phenomenon at L4-L5. Facet arthropathy at L4-L5. NEURAL FORAMINA: Moderate bilateral neural foraminal stenosis at the L4-L5 level. VISUALIZED ABDOMEN: There is a 2.3 x 1.5 cm low-attenuation nodule at the right adrenal gland, suggestive of an adenoma. There are bilateral tubal ligation clips. [facility] MMODALAntoSona santacruz, - 11/10/2024 Interpreted By: Sona Strange, and Rohan Mendoza STUDY: CT LUMBAR SPINE WO IV CONTRAST; 11/10/2024 1:27 am INDICATION: Signs/Symptoms:1 week history acutely worsening back pain, known lumbar radiculopathy, no saddle anesthesia, no loss of bowel or bladder. COMPARISON: MRI lumbar spine 08/29/2024. CT lumbar spine 08/28/2024. ACCESSION NUMBER(S): [id number] ORDERING CLINICIAN: ANTONIETA REYNA TECHNIQUE: Axial noncontrast images of the lumbar spine with coronal and sagittal reconstructed images. FINDINGS: PARASPINAL SOFT TISSUES: Redemonstration of soft tissue edema at the paraspinal soft tissues. ALIGNMENT: No traumatic malalignment or traumatic facet widening. VERTEBRAE: Status post L4 left hemilaminectomy. No acute fracture. INTERVERTEBRAL DISCS: Degenerative disc disease with vacuum disc phenomenon at L4-L5. Facet arthropathy at L4-L5. NEURAL FORAMINA: Moderate bilateral neural foraminal stenosis at the L4-L5 level. VISUALIZED ABDOMEN: There is a 2.3 x 1.5 cm low-attenuation nodule at the right adrenal gland, suggestive of an adenoma. There are bilateral tubal ligation clips. IMPRESSION: 1. No acute fracture at the lumbar spine. Postsurgical and degenerative changes at L4-L5. I personally reviewed the images/study and I agree with the findings as stated. MACRO: None. Signed by: Sona Strange 11/10/2024 5:34 AM Dictation workstation: [id number] [facility] Work Phone: Radiology Study observation (narrative)[facility] Work Phone: CT Lumbar spine WO contrastOrdered By: Sona Strange on [id number] Township District Memorial Hospital Work Phone: ED Note-Physicianon [id number] Note-PhysicianED Note-Physician Basic Information Time Seen: Robert Taylor PA-C 11/08/2024 09:15 Chief Complaint chronic back pain oxycodone 5mg at 0500 ibuprofen 800mg at 0700. no new injury History of Present Illness 49-year-old female comes to the ED for evaluation of back pain. She has a longstanding history of chronic back pain, follows with pain management, awaiting appointment for pain pump implantation. Shehas frequent ED presentations for poorly controlled back pain. Complains of chronic back pain today, no new or unusual symptoms. No recent trauma. No acute weakness or paresthesias. Review of Systems A 10 point review of systems is negative except as noted above. Medical and Surgical History: Reviewed and noted Social history: Lives at home Tobacco: Denies Physical Exam Vitals & Measurements T: 36.8 ???C(Oral) HR: 103(Peripheral) RR: 20 BP: 155/102 SpO2: 97% HT: 160 cm WT: 123.2 kg BMI: 48.13 Nurses notes and vital signs reviewed and patient is not hypoxic. General: The patient appears well, resting comfortably. Skin: Warm, dry. Head: Atraumatic. Neck: No JVD. Eye: Normal conjunctiva. Ears, Nose, Mouth, and Throat: Moist mucous membranes. Cardiovascular: Strong distal pulses. Chest wall: Respiratory: Respirations are nonlabored. Back: Normal range of motion. Musculoskeletal: Normal ROM with no gross deformity. Gastrointestinal: Urological: Neurological: Awake and alert. No focal deficits. Follows commands. Psychiatric: Cooperative. Medical Decision Making Patient presents with acute on chronic back pain. She is well-known for frequent ED presentations due to her poorly controlled pain. She is also able to without difficulty. She has no evidence of neurovascular compromise. She denies any new or unusual symptoms, and today's pain is consistent with her chronic issues. She is medicated here, discharged home to follow-up with her pain medicine physician. Patient was encouraged to return to the ED if symptoms worsen or change. Assessment/Plan Chronic back pain (M54.9: Dorsalgia, unspecified) Other chronic pain (G89.29: Other chronic pain) Orders: morphine, 8 mg = 2 mL, Injection, IntraMuscular, Once, Stop date 11/08/24 9:31:00 EDT, STAT, Start date 11/08/24 9:31:00 EDT, 11/08/24 9:31:00 EDT Disposition Plan Patient Discharge Condition Disposition: Discharged home Condition: Improved and stable Counseled: Patient and/or family were counseled to workup, results, treatment plan and follow-up recommendations Discharge Prescription List Prescriptions No active prescription medications Follow-up With When Contact Information KRISTAN LAU In 3 days 11/11/2024 EDT [address] [place] [address]- Business (1) Additional Instructions: Patient Education Chronic Back Pain Attestation I performed a substantive part of the MDM during the patient???s E/M visit. I personally made or approved the documented management plan and acknowledge its risk of complications. (Independent Interpretation) My (EKG/X-Ray/US/CT) interpretation as above. (Discussion) Management/test interpretation discussed with APC. This report was transcribed using voice recognition software. Every effort was made to ensure accuracy, however, inadvertently computerized bill recapitulation clerk mistakes may be present. Appropriate healthcare PPE was used in evaluating this patient. Problem List/Past Medical History Ongoing Arthritis of first carpometacarpal joint of right hand Bipolar disorder Chronic back pain Chronic hepatitis C Closed fracture of trapezoidal bone of wrist COVID-19 Diarrhea Disease of liver Drug therapy finding Edema Elevated blood pressure reading Encounter for screening mammogram for breast cancer Fatigue HTN (hypertension) Migraine Morbid obesity with BMI of 45.0-49.9, adult Obesity Screening for cardiovascular condition Smoker Smoker Tendonitis of right wrist Weight gain Wellness examination Historical Bipolar Continuous opioid dependence Hepatitis C Liver disease Lyme disease Migraines Procedure/Surgical History Hysterectomy (2010), History of cholecystectomy, Hysterectomy, lap x 7, Tonillectomy with adenoids. Medications Inpatient morphine 4 mg/mL Inj, 8 mg= 2 mL, IntraMuscular, Once Home Ambien 10 mg Tab, 10 mg= 1 tab(s), Oral, Once a day (at bedtime), PRN, 5 refills cyclobenzaprine 10 mg Tab, 10 mg= 1 tab(s), Oral, TID, PRN, 1 refills Cymbalta 60 mg oral delayed release capsule, 60 mg= 1 cap(s), Oral, Daily, 5 refills duloxetine 30 mg oral delayed release capsule, 30 mg= 1 cap(s), Oral, Daily, 11 refills handicap placard, See Instructions hydrochlorothiazide 25 mg Tab, 25 mg= 1 tab(s), Oral, Daily, 3 refills hydrOXYzine hydrochloride 25 mg Tab, 25 mg, Oral, Once, 4 refills ibuprofen 800 mg Tab, 800 mg= 1 tab(s), Oral, TID omeprazole 40 mg Cap-DR, 40 mg= 1 cap(s), Oral, BID, 3 refills oxyCODONE 10 mg ER (more content not included)...[facility]ark HospitalComment on above:Result Comment: Electronically Signed By: Robert Taylor PA-C\.br\Date and Time Signed: 11/08/2508:38 EDT\.br\Electronically Co-Signed By: Cameron eRne DO\.br\Date and Time Co-Signed: 11/10/24 18:00 EDTCBC W Auto Differential panel (Bld)on [id number] (Bld) [#/Vol]0.01 10*3/uL [facility] HospitalBasophils/100 WBC (Bld)0.1 %0.0 - 2.0 % [facility] HospitalEosinophils (Bld) [#/Vol]0.11 10*3/uLJoint Township District Memorial HospitalEosinophils/100 WBC (Bld)1.1 %0.0 - 6.0 %[facility] HospitalErythrocyte distribution width (RBC) [Ratio]14.6 %High11.5 - 14.5 %[facility] HospitalHematocrit (Bld) [Volume fraction]45.6 %36.0 - 46.0 %[facility] HospitalHemoglobin (Bld) [Mass/Vol]15.1 g/dL12.0 - 16.0 g/dLUnWood County HospitalImchristian hospital granulocytes (Bld) [#/Vol]0.02 10*3/[facility]ers HospitalImmature granulocytes/100 WBC (Bld)0.2 %0.0 - 0.9 %[facility] on above: Immature Granulocyte Count (IG) includes promyelocytes, myelocytes and metamyelocytes but does not include bands. Percent differential counts (%) should be interpreted in the context of the absolute cell counts (cells/UL). Interpretation and review of laboratory resultsAbnormalUniShelby Memorial HospitalLymphocytes (Bld) [#/Vol]2.28 10*3/[facility] Lymphocytes/100 WBC (Bld)21.9 %13.0 - 44.0 %[facility] (RBC) [Entitic mass]28.5 pg26.0 - 34.0 pgSelect Medical Cleveland Clinic Rehabilitation Hospital, Edwin ShawHC (RBC) [Mass/Vol]33.1 g/dL32.0 - 36.0 g/dLSelect Medical Cleveland Clinic Rehabilitation Hospital, Edwin ShawV (RBC) [Entitic vol]86 fL80 - 100 fLUniShelby Memorial HospitalMonocytes (Bld) [#/Vol]0.75 10*3/[facility] HospitalMonocytes/100 WBC (Bld)7.2 %2.0 - 10.0 %[facility] HospitalNeutrophils (Bld) [#/Vol] 7.25 10*3/[facility]rin[facility] HospitalCommclaren northern [place] on above:Percent differential counts (%) should be interpreted in the context of the absolute cell counts (cells/uL).Neutrophils/100 WBC (Bld)69.5 %40.0 - 80.0 %[facility] HospitalNucleated RBC/100 WBC (Bld) [Ratio]0.0 %[facility] HospitalPlatelets (Bld) [#/Vol]411 10*3/[facility]riners HospitalRBC (Bld) [#/Vol]5.29 10*6/[facility] HospitalWBC (Bld) [#/Vol]10.4 10*3/[facility] CampusBasophils (Bld) [#/Vol]0.01 x10*3/[facility]red Heart Hospitalrmal0.00-0.10[facility] Memorial HospitalComment on above:Performed By: #### [id number] ####JOLENE Cantu ([id number])[facility] ([facility])[address] [place], [place] [address]Szbdwrkcq/100 WBC (Bld)0.1 %Normal0.0-2.0UnSamaritan North Health CenterComment on above:Performed By: #### 36177-9 ####JOLENE Cantu ([id number])[facility] ([facility])[id number] [place] [address] Eosinophils (Bld) [#/Vol]0.11 x10*3/uLNormal0.00-0.70UnSamaritan North Health CenterComment on above:Performed By: #### 06076-0 ####JOLENE Cantu ([id number])[facility] ([facility])[address] [place] [address]Zijylnllofh/100 WBC (Bld)1.1 %Normal0.0-6.0UnSamaritan North Health CenterComment on above:Performed By: #### 84106-8 ####JOLENE Cantu ([id number])[facility] ([facility])[id number] [place] [address] Erythrocyte distribution width (RBC) [Ratio]14.6 %High11.5-14.5UnSamaritan North Health CenterComment on above:Performed By: #### 10492-8 ####JOLENE Cantu ([id number])[facility] ([facility])[id number] [place] [address]Okdgjnytay (Bld) [Volume fraction]45.6 %Xudwoy85.0-46.0[facility] Memorial HospitalComment on above:Performed By: #### 88039-8 ####JOLENE Cantu ([id number])[facility] ([facility])[id number] [place] [address]Nwtnnqehae (Bld) [Mass/Vol]15.1 g/yEZagriu60.0-16.0UnSamaritan North Health CenterComment on above:Performed By: #### 51432-8 ####JOLENE Cantu ([id number])[facility] ([facility])[address] [place], [place] [address]Hshijwbs granulocytes (Bld) [#/Vol]0.02 x10*3/uLNormal0.00-0.70UnSamaritan North Health CenterComment on above:Performed By: #### 11892-8 ####JOLENE Cantu ([id number])[facility] ([facility])[address] [place], [place] [address]Xlillehw granulocytes/100 WBC (Bld)0.2 %Normal0.0-0.9UnSamaritan North Health CenterComment on above:Result Comment: Immature Granulocyte Count (IG) includes promyelocytes, myelocytes and metamyelocytes but does not include bands. Percent differential counts (%) should be interpreted in the context of the absolute cell counts (cells/UL).Performed By: #### 39262-4 ####JOLENE Cantu ([id number])[facility] ([facility])[address] [place], [place] [address]Fcvpzatifya (Bld) [#/Vol]2.28 x10*3/uLNormal1.20-4.80[facility] Memorial HospitalComment on above:Performed By: #### 92995-3 ####JOLENE Cantu ([id number])[facility] ([facility])[address] [place], [place] [address]Lifnqopodyi/100 WBC (Bld)21.9 %Ovyuep15.0-44.0[facility] Memorial HospitalComment on above:Performed By: #### 13068-9 ####JOLENE Cantu ([id number])[facility] ([facility])[address] [place], [place] [address]GAG (RBC) [Entitic mass]28.5 rgKqxtkm90.0-34.0[facility] Memorial HospitalComment on above:Performed By: #### 55012-6 ####JOLENE Cantu (54917)[facility] [facility] ([facility])[address] [place], [place] [address]YAFR (RBC) [Mass/Vol]33.1 g/oKOirdmd78.0-36.0UnSamaritan North Health CenterComment on above:Performed By: #### 01263-0 ####JOLENE Cantu ([id number])[facility] ([facility])[address] [place], [place] [address]NZW (RBC) [Entitic vol]86 jMMiitwx00-012KztfmsuhsrSamaritan North Health CenterComment on above:Performed By: #### 93083-7 ####JOLENE Cantu ([id number])[facility] ([facility])[address] [place], [place] [address]Voefqgrnk (Bld) [#/Vol]0.75 x10*3/uLNormal0.10-1.00[facility] Comment on above:Performed By: #### 71254-0 ####JOLENE Cantu ([id number])[facility] ([facility])[address] [place], [place] [address]Umrrcohtq/100 WBC (Bld)7.2 %Normal2.0-10.0[facility] Memorial HospitalComment on above:Performed By: #### 30808-5 ####JOLENE Cantu ([id number])[facility] ([facility])[address] [place], [place] [address]Nkaarwpynob (Bld) [#/Vol]7.25 x10*3/uLNormal1.20-7.70UnSamaritan North Health CenterComment on above:Result Comment: Percent differential counts (%) should be interpreted in the context of the absolute cell counts (cells/uL).Performed By: #### 60345-4 ####JOLENE Cantu ([id number])[facility] ([facility])[address] [place], [place] [address]Bqmlvvghwpg/100 WBC (Bld)69.5 %Itucts82.0-80.0UnSamaritan North Health CenterComment on above:Performed By: #### 17559-7 ####JOLENE Cantu ([id number])[facility] ([facility])[address] [place], [place] [address]Hlsxsltpi RBC/100 WBC (Bld) [Ratio]0.0 /100 WBCsNormal0.0-0.0[facility] Memorial HospitalComment on above:Performed By: #### 42888-3 ####JOLENE Cantu ([id number])[facility] ([facility])[address] [place], [place] [address]Btivpslbr (Bld) [#/Vol]411 x10*3/uRXmqufm806-578IwtzkfwxtjSamaritan North Health CenterComment on above:Performed By: #### 48088-6 ####JOLENE Cantu (23214)[facility] ([facility])[address] [place], [place] [address]WRC (Bld) [#/Vol]5.29 x10*6/uLHigh4.00-5.20UnSamaritan North Health CenterComment on above:Performed By: #### 79292-5 ####JOLENE Cantu (60090)[facility] ([facility])[address] [place], [place] [address]WXP (Bld) [#/Vol]10.4 x10*3/uLNormal4.4-11.3[facility] HospitalComment on above:Performed By: #### 66650-6 ####JOLENE Cantu ([id number])[facility] ([facility])[address] [place], [place] [address]Tirqschnsycun metabolic 2000 panelon 33-42-2122Kvxaubu BCP dye [Mass/Vol]4.5 g/dL3.4 - 5.0 g/dLUnWood County HospitalALP [Catalytic activity/Vol]91 U/L33 - 110 U/[facility] HospitalALT With P-5'-P [Catalytic activity/Vol]13 U/L7 - 45 U/[facility] HospitalComment on above:Patients treated with Sulfasalazine may generate falsely decreased results for ALT.Anion gap [Moles/Vol]16 mmol/L10 - 20 mmol/[facility] HospitalAST With P-5'-P [Catalytic activity/Vol]18 U/L9 - 39 U/[facility] Bilirubin [Mass/Vol]0.4 mg/dL0.0 - 1.2 mg/dLJoint [facility] Calcium [Mass/Vol]9.3 mg/dL8.6 - 10.6 mg/dLUnWood County Hospital Chloride [Moles/Vol]105 mmol/L98 - 107 mmol/[facility] CO2 [Moles/Vol]23 mmol/L21 - 32 mmol/[facility] Creatinine [Mass/Vol]0.73 mg/dL0.50 - 1.05 mg/dLUnWood County HospitaleGFR- PINFUniShelby Memorial HospitalComment on above: Calculations of estimated GFR are performed using the 2020 CKD-EPI Study Refit equation without therace variable for the IDMS-Traceable creatinine methods. https://jasn.asnjournals.org/content/early//ASN.2832106705 Glucose [Mass/Vol]94 mg/dL74 - 99 mg/dLUnWood County Hospital Interpretation and review of laboratory resultsNormalUBluffton HospitalPotassium [Moles/Vol]4.0 mmol/L3.5 - 5.3 mmol/[facility] HospitalProtein [Mass/Vol]8.1 g/dL6.4 - 8.2 g/dLUnWood County HospitalSodium [Moles/Vol]140 mmol/L136 - 145 mmol/[facility] HospitalUrea nitrogen [Mass/Vol]21 mg/dL6 - 23 mg/dLUnWood County HospitalUnWood County HospitalAlbumin BCP dye [Mass/Vol]4.5 g/dL Normal3.4-5.0UnSamaritan North Health CenterComment on above: Performed By: #### 03158-8 ####JOLENE Cantu (00027)[facility] ([facility])[address] [place], [place] [address]TGP [Catalytic activity/Vol]91 U/ZTkcnml98-443 [facility] HospitalComment on above:Performed By: #### 01374-4 ####JOLENE Cantu (12069)[facility] ([facility])[address] [place], [place] [address]WND With P-5'-P [Catalytic activity/Vol]13 U/LNormal 7-45UnSamaritan North Health CenterComment on above:Result Comment: Patients treated with Sulfasalazine may generate falsely decreased results for ALT.Performed By: #### 73346-1 ####JOLENE Cantu (81127)[facility] ([facility])[address] [place], [place] [address]Ffpni gap [Moles/Vol]16 mmol/JVjxcnd69-65IopptkdwanSamaritan North Health Center Comment on above:Performed By: #### 82272-5 ####JOLENE Cantu (60894)[facility] ([facility])[address] [place], [place] [address]EZR With P-5'-P [Catalytic activity/Vol]18 U/LNormal9-39UnSamaritan North Health CenterComment on above:Performed By: #### 41703-3 ####JOLENE Cantu ([id number])[facility] ([facility])[address] [facility] [place], [place] [address]Pyozzmvfh [Mass/Vol] 0.4 mg/dLNormal0.0-1.2UnSamaritan North Health CenterComment on above:Performed By: #### 03826-8 ####JOLENE RONQUILLO L (64242)[facility] ([facility])[address] [place], [place] [address]Qrbfcdc [Mass/Vol]9.3 mg/dLNormal 8.6-10.6[facility] HospitalComment on above:Performed By: #### 97824-9 ####JOLENE WELSHMOREGINALDO L (33284)[facility] ([facility])[address] [facility] [place], [place] [address]Xacvhnhb [Moles/Vol]105 mmol/FCxxhdt80-402CbajqeyngfSamaritan North Health CenterComment on above:Performed By: #### 92011-9 ####JOLENE CASTROER L (84120)[facility] ([facility])[address] [facility] [place] [address]DI5 [Moles/Vol]23 mmol/WGrsmnz78-73DghrtlqzotSamaritan North Health CenterComment on above:Performed By: #### 30034-8 ####JOLENE WELSHMOALEXUSER L (92975)[facility] ([facility])[address] [facility] [place] [address]Dcaikmkeng [Mass/Vol]0.73 mg/dLNormal0.50-1.05[facility] Comment on above:Performed By: #### 43299-4 ####JOLENE RONQUILLO L (95536)[facility] ([facility])[address] [place], [place] [address]Yessyysafs filtration rate>90Normal>60UnSamaritan North Health CenterComment on above:Result Comment: Calculations of estimated GFR are performed using the 2020 CKD-EPI Study Refit equation without the race variable for the IDMS- Traceable creatinine methods. https://jasn.asnjournals.org/content///ASN.1972942901Fjlgfcpmz By: #### 88703-8 ####JOLENE RONQUILLO L (85726)[facility] ([facility])[address] [place], [place] [address]Crammqi [Mass/Vol]94 mg/gOQyftby67-00KqnfnqqcslSamaritan North Health CenterComment on above:Performed By: #### 23380-1 ####JOLENE CASTROER L (96396)[facility] ([facility])[address] [facility] [place] [address]Fmjwysyjz [Moles/Vol]4.0 mmol/LNormal3.5-5.3UnSamaritan North Health CenterComment on above:Performed By: #### 12233-5 ####JOLENE WELSHMOTZER L (11493)[facility] ([facility])[address] [facility] [place] [place] [address]Sqxwkdg [Mass/Vol]8.1 g/dLNormal6.4-8.2[facility] Comment on above:Performed By: #### 29208-0 ####JOLENE Cantu (01657)[facility] ([facility])[address] [place], [place] [address]Bivbkp [Moles/Vol] 140 mmol/HTywmbd520-609ErirpuxvurMemorial Health System Marietta Memorial HospitalComment on above:Performed By: #### 74623-8 ####JOLENE Cantu (01897)[facility] ([facility])[address] [place], [place] [address]Dpiu nitrogen [Mass/Vol]21 mg/dL Normal6-23[facility] HospitalComment on above: Performed By: #### 13977-7 ####JOLENE Cantu ([id number])[facility] ([facility])[address] [place], [place] [address]CMG 12 leadOrdered By: Dotty Mulligan on 08-24-6824Ihkqje Kyzl381BAMMvejbfqufcOhio State Health System Work Phone: [phone] Ztmi19mhbnoptDrkmgdotdmJoint Township District [facility] Hospital Work Phone: [phone] Ccgyvy451 [facility] Work Phone: [phone] Zcrbg465 [facility] Work Phone: [phone] Llmwqptu041 [facility] Work Phone: [phone] Aswre610 [facility] Work Phone: [phone] Fpubr76bfqtmHwsrgjiwlmShelby Memorial Hospital Work Phone: [phone] Oiozdstu47 [facility] Work Phone: [phone] Vhnxapmh531 [facility] Work Phone: [phone] Calculation(Griselda)461 [facility] Work Phone: [phone] Gjwybecuqq715 [facility] Work Phone: [phone] Lxjj19ryjhliyVrpgtqnataBlanchard Valley Health System Work Phone: T Ywsm63nngegvrPokwqluquxBlanchard Valley Health System Work Phone: T Atzkub317 [facility] Work Phone: Ventricular Tlsy410BWZPmmfjttaqfOhio State Health System Work Phone: UnWood County Hospital Work Phone: ECG 12 leadon 35-49-7861Zqaxo tachycardia Right atrial enlargement Borderline ECG When compared with ECG of 15-MAY-2024 17:26, No significant change was found See ED provider note for full interpretation and clinical correlation Confirmed by Dotty Mulligan ([id number]) on 11/09/2024 4:26:07 PMDotty Leslie, [facility] - 11/09/2024 Sinus tachycardia Right atrial enlargement Borderline ECG When compared with ECG of 15-MAY-2024 17:26, No significant change was found See ED provider note for full interpretation and clinical correlation Confirmed by Dotty Mulligan ([id number]) on 11/09/2024 4:26:07 PM [facility] Work Phone: ECG 12-LEADon [id number] 12-LEADVentricular Rate 107 Atrial Rate 107 P-R Interval 126 QRS Duration 78 Q-T Interval 346 QTC Calculation(Bazett) 461 P [place] 64 R [place] 43 T [place] 44 QRS Count 17 Q Onset 217 P Onset 154 P Offset 200 T Offset 390 QTC Fredericia 419 Diagnosis Sinus tachycardia Right atrial enlargement Borderline ECG When compared with ECG of 15-MAY-2024 17:26, No significant change was found See ED provider note for full interpretation and clinical correlation Confirmed by Dotty Mulligan ([id number]) on 11/09/2024 4:26:07 [facility] Clinical Summaryon [id number] Clinical SummaryED Clinical Summary [address] [address] ED Clinical Summary Person Information Name: DEMARCUSJERAD Thomas/[facility] Age: 49 Years : 1975 Sex: Female Language: Malagasy PCP: FLOR JONES Marital Status: Visit Id: Visit Reason: Back pain; lower back pain Speciality: Acuity: 4 Enc Type: Emergency Med Service: Emergency Arrival: 11/08/2024 09:04:23 Discharge: 11/08/2024 09:56:23 LOS: 000 00:52 Checkin: 11/08/2024 09:04:23 Checkout: 11/08/2024 09:56:23 Dispo Type: Home (Routine DC) EVENTS: Event Name Event Status Request Date/Time Start Date/Time Complete Date/Time Arrive Complete 11/08/2024 09:04:23 11/08/2024 09:04:23 11/08/2024 09:04:23 Document Home Meds Request 11/08/2024 09:04:23 Triage Complete 11/08/2024 09:04:23 11/08/2024 09:16:38 11/08/2024 09:16:38 Bed Assign Complete 11/08/2024 09:10:28 11/08/2024 09:10:28 11/08/2024 09:10:28 Dr Exam Complete 11/08/2024 09:10:28 11/08/2024 09:15:55 11/08/2024 09:15:55 RN Exam Complete 11/08/2024 09:10:28 11/08/2024 09:18:28 11/08/2024 09:18:28 Registration Complete 11/08/2024 09:13:20 11/08/2024 09:13:20 11/08/2024 09:13:20 Reg Complete Request 11/08/2024 09:13:20 Reg Bed Request Complete 11/08/2024 09:13:20 11/08/2024 09:13:20 11/08/2024 09:13:20 Registration Complete 11/08/2024 09:15:55 11/08/2024 09:26:51 11/08/2024 09:26:51 Dr Exam Complete 11/08/2024 09:30:52 11/08/2024 09:30:52 11/08/2024 09:30:52 Registration Request 11/08/2024 09:30:52 Meds Admin Complete 11/08/2024 09:31:34 11/08/2024 09:55:37 Discharge Complete 11/08/2024 09:31:50 11/08/2024 09:56:28 11/08/2024 09:56:28 Transfer Complete 11/08/2024 09:56:28 11/08/2024 09:56:28 11/08/2024 09:56:28 ADDRESS: [address] [place] [address] [facility] [id number] PHYS DOC NOTES: MEDICAL INFORMATION: Prescriptions Given: Medications to Continue with No Changes Other Medications cyclobenzaprine (cyclobenzaprine 10 mg Tab) 1 Tablets By Mouth 3 times a day as needed for spasm. Refills: 1. duloxetine (Cymbalta 60 mg oral delayed release capsule) 1 Capsules By Mouth every day. Refills: 5. duloxetine (duloxetine 30 mg oral delayed release capsule) 1 Capsules By Mouth every day. Refills: 11. hydrochlorothiazide (hydrochlorothiazide 25 mg Tab) 1 Tablets By Mouth every day. Refills: 3. hydrOXYzine (hydrOXYzine hydrochloride 25 mg Tab) 25 Milligram By Mouth Once. Refills: 4. ibuprofen (ibuprofen 800 mg Tab) 1 Tablets By Mouth 3 times a day. Refills: 0. Misc Prescription (handicap placard) dispense 1 handicap placard. expires: 11/03/2034. Refills: 0. omeprazole (omeprazole 40 mg Cap-DR) 1 Capsules By Mouth 2 times a day. Refills: 3. ondansetron (Zofran 4 mg Tab) 1 Tablets By Mouth every 8 hours as needed Nausea/Vomiting. Refills: 1. oxycodone (oxyCODONE 10 mg ER Tab) 1 Tablets By Mouth every 12 hours as needed severe pain. tirzepatide (Zepbound 2.5 mg/0.5 mL subcutaneous solution) 2.5 Milligram Subcutaneous every week. Refills: 1. tirzepatide (Zepbound 2.5 mg/0.5 mL subcutaneous solution) 2.5 Milligram Subcutaneous every week. Refills: 3. zolpidem (Ambien 10 mg Tab) 1 Tablets By Mouth once a day (at bedtime) as needed for sleep. Refills: 5. PATIENT EDUCATION INFORMATION: Instructions: Chronic Back Pain Follow up: With: Address: When: KRISTAN LAU [address] [facility] [address] [place], [place] [id number] Business (1) In 3 days 11/11/2024 DIAGNOSIS: Chronic back pain; Other chronic painNormalPremier Health [facility] Patient Summaryon [id number] Patient SummaryED Patient Summary [address] [address] Patient Discharge Instructions Person Information Name: JERAD TRACY Age: 49 Years Arrival Date: 11/08/2024 09:04:23 Discharge Diagnosis: Chronic back pain; Other chronic pain Primary Care Physician: FLOR JONES Provider Information Primary Provider: Cameron Rene DO Advanced Dietetic Intern:Robert Taylor PA-C The exam and treatment you received in the Emergency Department were for an urgent problem and are not intended as complete care. It is important that you follow up with a doctor, nurse practitioner,or physician???s construction assistant for ongoing care. If your symptoms become worse or you do not improve asexpected and you are unable to reach your usual health care provider, you should return to the Emergency Department. We are available 24 hours a day. JERAD TRACY has been given the following list of patient education materials, prescriptions andfollow-up instructions: Follow-up Instructions: With: Address: When: KRISTAN LAU [address] [facility] [address] [place] [address] Gravitant () In 3 days 11/11/2024 In the event that this physician does not participate in your insurance network, please consult with your insurance company to find a nearby participating provider. Patient Education Materials: Chronic Back Pain A MESSAGE TO ALL PATIENTS REGARDING OPIOIDS PRESCRIPTION OPIOIDS: WHAT YOU NEED TO KNOW Prescription opioids can be used to help relieve govdsryu-kb-wmfeeg pain and are often prescribed following a [...] guidance from the Food and Drug Administration (www.fda.gov/Drugs/ResourcesForYou). ??? Visit www.cdc.gov/drugoverdose to learn about the risks of opioids abuse and overdose. ??? If you believe you may be struggling with addiction, tell your (more content not included)...[facility] Medicine Office/Clinic Noteon [id number] Medicine Office/Clinic NoteFami Medicine Office/Clinic Note Chief Complaint ER F/U; address Possible HTN; and would like something to help her sleep. HPI Staff ER followup: Hospital: [facility] Visit date: 10/30/24 Symptoms the patient presented with: chronic low back pain. given Kenalog, morphine and ketorolac Pt then went back on 10/31, 11/01 to [facility] received morphine thru IV then went to [facility] and received 2 oxycodone to take home. Current concerns: Would like to know if you can refill her ambien for sleep OTC: melatonin = doesn't work Would also like to discuss possible HTN DX as she was told at the ER that her B/P was Elevated. Also would like a refill on Hydroxyzine History of Present Illness Jerad is a 49 year old female who presents for a routine FU after ED. She has been in the ED manytimes over the course of the last 6 weeks for severe back pain. She is pending a pain pump with Dr Calero in the next 2 weeks. She is having significant difficulty with insomnia and she needs her ambien increased. She is unable to sleep due to pain. She is also experiencing edema and was on spironolactone and this is not working for her edema. Additionally her BP has been elevated - I am going to stop the spironolactone and start HCTZ. Weight is a contributing factor to all of her issues. She was on adipex and didn't lose weight on this med so we stopped. She is unable to exercise at this time due to severe pain (pending the pain pump) and I did try to send in Zepbound in the past and never heard anything more about it. I will send for a PA today. She is pending and eval with a weight software asset management analyst with [facility] in Dec. OARRS reviewed and staff HPI reviewed and accurate. Review of Systems PHQ Score Initial Depression Screen Score: 0 SCORE Physical Exam Vitals & Measurements HR: 95(Peripheral) RR: 18 BP: 140/82 SpO2: 90% HT: 160 cm HT: 63 in WT: 123.2 kg WT: 271.609 lb BMI: 48.13 rocking in the chair in pain General: alert, no acute distress ENMT: TM's clear, oral mucosa moist, no pharyngeal erythema or exudate Cardiovascular: regular rate and rhythm, normal peripheral perfusion Respiratory: Lungs CTA, respirations non labored Extremities: no deformity, no trauma Neurological: oriented x 4, LOC appropriate for age, CN II-XII intact, motor strength equal & normal bilaterally, sensation equal & normal bilaterally, speech normal Assessment/Plan 1. BMI 45.0-49.9, adult (Z68.42: Body mass index [BMI] 45.0-49.9, adult) PA for zepbound pending eval per weight mgt at [facility] in dec Ordered: tirzepatide, 2.5 mg, SubCutaneous, qWeek, # 2 mL, Refills(s) 1, Pharmacy: [facility] #37, 160, cm, 11/03/24 15:45:00 EDT, Height/Length Dosing, 123.2, kg, 11/03/24 15:45:00 EDT, Weight Dosing Body Mass Index (BMI) documented 3008F Current tobacco smoker 1034F Depression Screening Negative 3352F Most recent diastolic blood pressure 80-89 mm Hg 3079F Most recent systolic blood pressure >= 140 mm Hg 3077F Patient screen for fall risk: no falls in last year or 1 fall with no injury in last year 1101F 2. Smoker (F17.200: Nicotine dependence, unspecified, uncomplicated) stopped smoking Ordered: Body Mass Index (BMI) documented 3008F Current tobacco smoker 1034F Depression Screening Negative 3352F Most recent diastolic blood pressure 80-89 mm Hg 3079F Most recent systolic blood pressure >= 140 mm Hg 3077F Patient screen for fall risk: no falls in last year or 1 fall with no injury in last year 1101F 3. Chronic back pain (M54.9: Dorsalgia, unspecified) pending pain pump per pain management increase duloxetine to 90mg daily Ordered: duloxetine, 30 mg = 1 cap(s), Oral, Daily, # 30 cap(s), Refills(s) 11, Pharmacy: [facility] #37, 160, cm, 11/03/24 15:45:00 EDT, Height/Length Dosing, 123.2, kg, 11/03/24 15:45:00 EDT, Weight Dosing Misc Prescription, handicap placard, See Instructions, 1 Unspecified/Unknown, 0, dispense 1 handicap placard. expires: 11/03/2034, Supply, 160, cm, 11/03/24 15:45:00 EDT, Height/Length Dosing, 123.2,kg, 11/03/24 15:45:00 EDT, Weight Dosing 4. Obesity (E66.9: Obesity, unspecified) see 1 Ordered: Misc Prescription, handicap placard, See Instructions, 1 Unspecified/Unknown, 0, dispense 1 handicap placard. expires: 11/03/2034, Supply, 160, cm, 11/03/24 15:45:00 EDT, Height/Length Dosing, 123.2,kg, 11/03/24 15:45:00 EDT, Weight Dosing phentermine, 37.5 mg = 1 tab(s), Oral, Daily, # 30 tab(s), Refills(s) 2, Pharmacy: [facility] #37, 160, cm, 07/21/24 9:58:00 EDT, Height/Length Dosing, 126.6, kg, 07/21/24 9:58:00 EDT, Weight Dosing 5. HTN (hypertension), (I10: Essential (primary) hypertension)HTN (hypertension) stop spironolactone start HCTZ monitor BP, goal: 120/80 fu 3 m Ordered: hydrochlorothiazide, 25 mg = 1 tab(s), Oral, Daily, # 30 tab(s), Refills(s) 3, Pharmacy: [facility] #37, 160, cm, 11/03/24 15:45:00 EDT, Height/Length Dosing, 123.2, kg, (more content not included)...Normal [facility] HospitalComment on above:Result Comment: Electronically Signed By: FLOR JONES\.br\Date and Time Signed: 11/03/24 16:13 EDTED Clinical Summaryon [id number] Clinical SummaryED Clinical Summary [place] [id number] ED Clinical Summary Person Information Name: JERAD TRACY Tasha/[facility] Age: 49 Years : 1975 Sex: Female Language: Malagasy PCP: FLOR JONES Marital Status: Visit Id: Visit Reason: Back pain; BACK PAIN Speciality: Acuity: 5 Enc Type: Emergency Med Service: Emergency Arrival: 11/01/2024 10:33:03 Discharge: 11/01/2024 12:10:42 LOS: 000 01:37 Checkin: 11/01/2024 10:33:03 Checkout: 11/01/2024 12:10:42 Dispo Type: Home (Routine DC) EVENTS: Event Name Event Status Request Date/Time Start Date/Time Complete Date/Time Arrive Complete 11/01/2024 10:33:03 11/01/2024 10:33:03 11/01/2024 10:33:03 Document Home Meds Request 11/01/2024 10:33:03 Triage Complete 11/01/2024 10:33:03 11/01/2024 10:40:57 11/01/2024 10:40:57 RN Exam Complete 11/01/2024 10:52:39 11/01/2024 10:52:39 11/01/2024 10:52:39 Registration Complete 11/01/2024 10:53:16 11/01/2024 10:53:16 11/01/2024 10:53:16 Reg Complete Request 11/01/2024 10:53:16 Reg Bed Request Complete 11/01/2024 10:53:16 11/01/2024 10:53:16 11/01/2024 10:53:16 Bed Assign Complete 11/01/2024 11:10:58 11/01/2024 11:10:58 11/01/2024 11:10:58 Dr Exam Complete 11/01/2024 11:10:58 11/01/2024 11:17:04 11/01/2024 11:17:04 Registration Request 11/01/2024 11:17:04 Meds Admin Complete 11/01/2024 11:20:58 11/01/2024 11:40:16 Discharge Complete 11/01/2024 11:22:24 11/01/2024 12:10:48 11/01/2024 12:10:48 Transfer Complete 11/01/2024 12:10:48 11/01/2024 12:10:48 11/01/2024 12:10:48 ADDRESS: [address] [place] [address] [facility] [id number] [facility] DOC NOTES: MEDICAL INFORMATION: Prescriptions Given: Medications to Continue with No Changes Other Medications cyclobenzaprine (cyclobenzaprine 10 mg Tab) 1 Tablets By Mouth 3 times a day as needed for spasm. Refills: 1. duloxetine (Cymbalta 60 mg Cap-DR) 1 Capsules By Mouth every day. (do not crush or chew). hydrOXYzine 25 Milligram for 1 Days. ibuprofen (ibuprofen 800 mg Tab) 1 Tablets By Mouth 3 times a day. Refills: 0. lidocaine topical (lidocaine Top 5% film Patch) 1 Patches Topical every day. apply 12 hours on and 12 hours off daily. Refills: 0. omeprazole (omeprazole 40 mg Cap-DR) 1 Capsules By Mouth 2 times a day. Refills: 3. ondansetron (Zofran 4 mg Tab) 1 Tablets By Mouth every 8 hours as needed Nausea/Vomiting. Refills: 1. oxycodone (oxyCODONE 10 mg ER Tab) 1 Tablets By Mouth every 12 hours as needed severe pain. phentermine (Adipex-P 37.5 mg Tab) 1 Tablets By Mouth every day. Refills: 2. spironolactone (spironolactone 25 mg Tab) 1 Tablets By Mouth 2 times a day. Refills: 1. tirzepatide (Zepbound 2.5 mg/0.5 mL subcutaneous solution) 2.5 Milligram Subcutaneous every week. Refills: 3. zolpidem (Ambien 5 mg Tab) 1 Tablets By Mouth once a day (at bedtime) as needed for sleep. Refills:0. PATIENT EDUCATION INFORMATION: Instructions: Chronic Back Pain Follow up: With: Address: When: KRISTAN LAU In 3 days 11/04/2024 Comments: You were treated for chronic back pain wanting emergency department today. You stated that you ran out of your pain medications and were requesting something to get you through Saturday to make get to your pain management appointment. You were given pain medications today. Please be cautious you are aware that you should not be driving home as the medication is sedating. Please follow-up with your pain management as soon as possible. Should you have been experiencing saddle numbness weakness in the lower extremities changes in bowel or bladder habits pain out of proportion fevers or symptoms concerning to call 911 or return to the nearest emergency department immediately. DIAGNOSIS: Back pain; Other chronic painNormalFisher Pollock Medical CenterED Note-Physician on [id number] Note-PhysicianED Note-Physician Basic Information Time Seen: Mora Waldrop DO 11/01/2024 11:17 Chief Complaint pt here for chronic back pain, has been seen it the past, awaiting a pain pump. History of Present Illness HPI: The patient is a 49-year-old female who presents to the emergency department with family member for chronic low back pain. Patient states that she is scheduled for a pain pump in the coming weeks. She ran out of her chronic narcotics today and is unable to have them filled by pain management as it is a Saturday. She denies any new injuries or falls. This is typical pain for her when she does not take her narcotics. She denies any saddle anesthesias weakness in the lower extremities or changes in bowel or bladder habits. No further related symptoms at this time. Review of Systems Review of systems: CONSTITUTIONAL: Denies fever, sweats, chills. NEURO: Denies difficulty walking, numbness, weakness, tingling, headache. HEENT: Denies sore throat, rhinorrhea, changes in vision. CARDIO: Denies chest pain, palpitations. PULM: Denies shortness of breath, cough. GI: Denies abdominal pain, nausea, vomiting, diarrhea, constipation, melena, hematochezia. : Denies painful urination, frequency, hematuria. MSK: Endorses chronic back pain. SKIN: Denies rash, lesions. ENDOCRINE: Denies unexpected weight-loss. HEME: Denies bleeding disorder. Physical Exam Vitals & Measurements T: 36.7 ???C(Oral) HR: 103(Peripheral) RR: 12 BP: 173/99 SpO2: 97% HT: 160 cm WT: 118 kg BMI: 46.09 Physical exam: VS: As documented in the triage note from today's date and EMR flowsheet were reviewed. Gen: Obese. No acute distress. Seated in bed. Appears nontoxic. Skin: Warm. Dry. Intact. No rashes or lesions. Eyes: Pupils equally round and reactive to light. Clear sclera. EOMI. HENT: Atraumatic appearance. Mucosal membranes moist. No oral lesions, uvula midline, airway patent. CV: Regular rate and regular rhythm. S1, S2. No pedal edema. Warm extremities. Resp: Nonlabored breathing Clear to auscultation bilaterally. No increased work of breathing. GI: Soft and nontender. No rebound or guarding. Bowel sounds x4 present. MSK: Symmetric muscle bulk. No joint swelling in the extremities. Compartments are soft. Neurovascularly intact x4 extremities. Radial pulses +2 equal bilaterally. Pedal pulses +2 equal bilaterally. 5-5 strength at the hip knee ankle toe joint. Achilles patellar reflexes +2 equal bilaterally. No midline CTL spine tenderness or step-offs. Neuro: Alert. CN II - XII intact. Speech fluent. Moving all extremities. No focal deficits. Gait normal. Psych: Appropriate. [place]. Medical Decision Making Hospital Course / Medical Decision Making: I reviewed the patient's triage vitals and they are hypertensive recommend follow-up with primary physician for repeat checks. Patient was initially tachycardic on triage vitals although this did resolve when she was at rest. Suspect pain induced. Due to the above findings the following was ordered IM morphine as well as Zofran for any refractory nausea. Patient is overall well-appearing denies any new injuries or falls this is typical for her back pain. Her neurological exam is reassuring. I see no indication for MRI imaging I have a low concern forcauda equina spinal epidural abscess or hematoma at this time. She has agreed to have her father drive her home. She specifically stated that she is not asking for a refill of her narcotics as she can speak with pain management tomorrow. She is requesting only something today to manage her pain throughout the day. Patient was given IM morphine her father was able to drive her home. She is appreciative of care agreeable with plan she is given strict return precautions and appropriate follow-up. The patient was counseled regarding labs, imaging, likely diagnosis, and plan. All questions were answered. Information provided by the patient and father Past medical history complicating workup chronic back pain Considered lab work and imaging although no indication at this time. Shared medical decision making patient requesting IM medication for pain management until she is able to follow-up with pain management tomorrow. Assessment/Plan Back pain (M54.9: Dorsalgia, unspecified) Other chronic pain (G89.29: Other chronic pain) Orders: morphine, 4 mg = 1 mL, Injection, IntraMuscular, Once, Stop date 11/01/24 11:20:00 EDT, STAT, Startdate 11/01/24 11:20:00 EDT, 11/01/24 11:20:00 EDT ondansetron, 4 mg = 1 tab(s), Tab-Dis, Oral, Once, Stop date 11/01/24 11:20:00 EDT, STAT, Start date 11/01/24 11:20:00 EDT, 11/01/24 11:20:00 EDT Disposition Plan Patient Discharge Condition Improved condition Discharge Disposition Discharge home Discharge Prescription List Prescriptions No active prescription medications Follow-up Wit (more content not included)...[facility] HospitalComment on above:Result Comment: Electronically Signed By: Mora Waldrop DO.br\Date and Time Signed: 11/01/24 11:26 EDTED Note-PhysicianED Note-Physician Basic Information Time Seen: Landon Tidwell PA-C 10/30/2024 14:06 Chief Complaint back pain. chronic. History of Present Illness 49-year-old female reports to the ED with concerns of back pain. Reports history of chronic back pain but when outside today, the back pain is worsened. Reports does have a appointment on Saturday withher pain management doctor, but just needs them to get her through until Saturday. Is open for other options. She states that she is not having any new symptoms. This is her chronic pain. No no acute changes. Review of Systems No other aggravating or relieving factors no other associated symptoms no other prior treatments orcomplaints. Family: Reviewed and noncontributory Social: lives at home Review of systems negative unless otherwise specified in the HPI. Physical Exam Vitals & Measurements T: 36.8 ???C(Oral) HR: 109(Peripheral) RR: 18 BP: 136/81 SpO2: 99% HT: 160 cm WT: 118.9 kg BMI: 46.45 General: The patient appears well and in no apparent distress. Patient is resting comfortably in chair. Afebrile Skin: Warm, dry, no pallor noted. Head: Normocephalic, atraumatic Neck: No JVD Eye: PERRLA, EOMI ENT: Moist mucus membranes Cardiovascular: Regular rate. normal peripheral perfusion. Pedal pulses +2 bilaterally Respiratory: No respiratory distress. no accessory muscle use. no obvious audible wheezing Chest Wall: no deformity Musculoskeletal: normal ROM, no deformity, no swelling. Diffuse tenderness throughout the entire lumbar region of patient's lower back. No midline step-off felt of the lumbar spine. GI: No obvious distention Neurological: A&O. moves all extremities equal strength and symmetry Psychiatric: Cooperative and appropriate Medical Decision Making A 49-year-old female reports to the ED with concerns of chronic back pain with acute flare. With onset today while she was out with her dog, and hurt her back. Reports worsening pain. She reports shedoes have a follow-up Saturday with her pain management doctor. She denies any warning signs of caudaequina syndrome. Reports is her chronic pain. Due to this, patient was given a shot of Toradol, morphine and Kenalog here. Discussed return precautions. Follow-up with your primary care provider in 3to 5 days. If symptoms worsen, do not improve, or new symptoms arise please report back to emergency department for further evaluation. The patient was understanding and agreeable to plan moving forward. Assessment/Plan Acute on chronic back pain (M54.9: Dorsalgia, unspecified) Other chronic pain (G89.29: Other chronic pain) Orders: ketorolac, 60 mg = 2 mL, Injection, IntraMuscular, Once, Stop date 10/30/24 14:35:00 EDT, STAT, Start date 10/30/24 14:35:00 EDT, 10/30/24 14:35:00 EDT morphine, 8 mg = 2 mL, Injection, IntraMuscular, Once, Stop date 10/30/24 14:39:00 EDT, STAT, Startdate 10/30/24 14:39:00 EDT, 10/30/24 14:39:00 EDT triamcinolone, 40 mg = 1 mL, Susp-Inj, IntraMuscular, Once, Stop date 10/30/24 14:35:00 EDT, STAT, Start date 10/30/24 14:35:00 EDT, 10/30/24 14:35:00 EDT Medications Administered Given Kenalog 40 mg Injection, 40 mg, IntraMuscular ketorolac 60 mg/2 mL Injection, 60 mg, IntraMuscular morphine 4 mg/mL Inj, 8 mg, IntraMuscular Disposition Plan Patient Discharge Condition stable Discharge Disposition to home Discharge Prescription List Prescriptions No active prescription medications Follow-up With When Contact Information KRISTAN LAU In 3 days 11/02/2024 EDT [address] [place] [address]- Business (1) Additional Instructions: Call Dr for diagnosis based follow up Patient Education Chronic Back Pain Attestation Patient seen and evaluated by the physician construction assistant. Attending physician was present in the emergency department and supervised care. This visit was performed by both the physician and an APC. I performed all aspects of the MDM as documented. This report was transcribed using voice recognition software. Every effort was made to ensure accuracy, however, inadvertently computerized bill recapitulation clerk mistakes may be present. Appropriate healthcare PPE [...] COVID-19 Diarrhea Disease of liver Drug therapy findin (more content not included)...[facility] HospitalComment on above:Result Comment: Electronically Signed By: Landon Tidwell PA-C\.br\Date and Time Signed: 10/30/2517:11 EDT\.br\Electronically Co-Signed By: Cameron Reen DO\.br\Date and Time Co-Signed: 11/01/24 04:58 EDTED Patient Summaryon [id number] Patient SummaryED Patient Summary [place] [id number] Patient Discharge Instructions Person Information Name: JERAD TRACY Age: 49 Years Arrival Date: 11/01/2024 10:33:03 Discharge Diagnosis: Back pain; Other chronic pain Primary Care Physician: FLOR JONES Provider Information Primary Provider: Mora Waldrop DO Advanced Dietetic Intern:None The exam and treatment you received in the Emergency Department were for an urgent problem and are not intended as complete care. It is important that you follow up with a doctor, nurse practitioner,or physician???s construction assistant for ongoing care. If your symptoms become worse or you do not improve asexpected and you are unable to reach your usual health care provider, you should return to the Emergency Department. We are available 24 hours a day. DEMARCUS JERAD Seng has been given the following list of patient education materials, prescriptions andfollow-up instructions: Follow-up Instructions: With: Address: When: KRISTAN LAU In 3 days 11/04/2024 Comments: You were treated for chronic back pain wanting emergency department today. You stated that you ran out of your pain medications and were requesting something to get you through Saturday to make get to your pain management appointment. You were given pain medications today. Please be cautious you are aware that you should not be driving home as the medication is sedating. Please follow-up with your pain management as soon as possible. Should you have been experiencing saddle numbness weakness in the lower extremities changes in bowel or bladder habits pain out of proportion fevers or symptoms concerning to call 911 or return to the nearest emergency department immediately. In the event that this physician does not participate in your insurance network, please consult with your insurance company to find a nearby participating provider. Patient Education Materials: Chronic Back Pain A MESSAGE TO ALL PATIENTS REGARDING OPIOIDS PRESCRIPTION OPIOIDS: WHAT YOU NEED TO KNOW Prescription opioids can be used to help relieve qwyombsn-zi-iwoaey pain and are often prescribed following a [...] sell or share prescription opioids. o Never us (more content not included)...[facility] CenterED Note-Physicianon [id number] Note-PhysicianED Note-Physician Basic Information Time Seen: Yaw MILES, Landon Hugo. 10/25/2024 14:08 Chief Complaint chronic low back pain History of Present Illness A 49-year-old female reports to the ED with concerns of acute flareup of her chronic back pain. Reports [place] walking at the fair yesterday, and overdid it. Now having back pain. States that this is her typical pain. No new symptoms. No bowel or bladder problems. No numbness radiating to her groin area. States just wants on the for pain relief. Reports has tried at home medication without any relief. Is scheduled to get a pain pump. Review of Systems No other aggravating or relieving factors no other associated symptoms no other prior treatments orcomplaints. Family: Reviewed and noncontributory Social: lives at home Review of systems negative unless otherwise specified in the HPI. Physical Exam Vitals & Measurements T: 36.8 ???C(Oral) HR: 106(Peripheral) RR: 18 BP: 155/101 SpO2: 98% HT: 160 cm WT: 119 kg BMI: 46.48 General: The patient appears well and in no apparent distress. Patient is resting comfortably in chair. Afebrile Skin: Warm, dry, no pallor noted. Head: Normocephalic, atraumatic Neck: No JVD Eye: PERRLA, EOMI ENT: Moist mucus membranes Cardiovascular: Regular rate. normal peripheral perfusion Respiratory: No respiratory distress. no accessory muscle use. no obvious audible wheezing Chest Wall: no deformity Musculoskeletal: normal ROM, no deformity, no swelling. Diffuse lumbar tenderness on palpation without a step-off of lumbar spine GI: No obvious distention Neurological: A&O. moves all extremities equal strength and symmetry Psychiatric: Cooperative and appropriate Medical Decision Making 49-year-old female reports to the emerged department with acute on chronic flareup of her chronic back pain. She believes she overdid it yesterday. No concerns for cauda equina syndrome. Reports thisis her typical pain. Due to this, patient was given a 1 dose injection of morphine, and discussed follow-up with her pain management as outpatient. She was understanding. Follow-up with your primary care provider in 3 to 5 days. If symptoms worsen, do not improve, or new symptoms arise please report back to emergency department for further evaluation. The patient was understanding and agreeable to plan moving forward. Assessment/Plan Chronic back pain (M54.9: Dorsalgia, unspecified) Other chronic pain (G89.29: Other chronic pain) Orders: morphine, 8 mg = 2 mL, Injection, IntraMuscular, Once, Stop date 10/25/24 14:15:00 EDT, STAT, Startdate 10/25/24 14:15:00 EDT, 10/25/24 14:15:00 EDT Medications Administered Given morphine 4 mg/mL Inj, 8 mg, IntraMuscular Disposition Plan Patient Discharge Condition stable Discharge Disposition to home Discharge Prescription List Prescriptions No active prescription medications Follow-up With When Contact Information KRISTAN CICECY In 3 days 10/28/2024 EDT [address] [place] [address]- [facility] (1) Additional Instructions: Call Dr for diagnosis based follow up Patient Education Chronic Back Pain Attestation Patient seen and evaluated by the physician construction assistant. Attending physician was present in the emergency department and supervised care. This visit was performed by both the physician and an APC. I performed all aspects of the MDM as documented. This report was transcribed using voice recognition software. Every effort was made to ensure accuracy, however, inadvertently computerized bill recapitulation clerk mistakes may be present. Appropriate healthcare PPE [...] Diarrhea Disease of liver Drug therapy finding Edema Elevated blood pressure reading Encounter for screening mammogram for breast cancer Fatigue Migraine Morbid obesity with BMI of 45.0-49.9, adult Screening for cardiovascular condition Smoker Smoker Tendonitis of right wrist Weight gain Wellness examination Historical Bipolar Continuous opioid dependence Hepatitis C Liver disease Lyme disease Migraines Procedure/Surgical History Hysterectomy (2010), History of cholecystectomy, Hysterectomy, lap x 7, Tonillectomy with adenoids. Medications Inpatient (more content not included)...[facility] HospitalComment on above:Result Comment: Electronically Signed By: Yaw MILES, Landon Mijares.br\Date and Time Signed: 10/25/2513:43 EDT\.br\Electronically Co-Signed By: Nehemiah Yepez MD\.br\Date and Time Co-Signed: 10/31/24 08:13 EDTED Clinical Summaryon [id number] Clinical SummaryED Clinical Summary [place] [id number] ED Clinical Summary Person Information Name: JERAD TRACY [place] Age: 49 Years : 1975 Sex: Female Language: Malagasy PCP: FLOR JONES Marital Status: Visit Id: Visit Reason: Back pain; LOWER BACK PAIN, CHRONIC PAIN Speciality: Acuity: 4 Enc Type: Emergency Med Service: Emergency Arrival: 10/30/2024 13:58:29 Discharge: 10/30/2024 15:31:32 LOS: 000 01:33 Checkin: 10/30/2024 13:58:29 Checkout: 10/30/2024 15:31:32 Dispo Type: Home (Routine DC) EVENTS: Event Name Event Status Request Date/Time Start Date/Time Complete Date/Time Arrive Complete 10/30/2024 13:58:29 10/30/2024 13:58:29 10/30/2024 13:58:29 Document Home Meds Request 10/30/2024 13:58:29 Triage Complete 10/30/2024 13:58:29 10/30/2024 14:04:51 10/30/2024 14:04:51 Bed Assign Complete 10/30/2024 14:03:03 10/30/2024 14:03:03 10/30/2024 14:03:03 Dr Exam Complete 10/30/2024 14:03:03 10/30/2024 14:06:18 10/30/2024 14:06:18 RN Exam Complete 10/30/2024 14:03:03 10/30/2024 14:07:39 10/30/2024 14:07:39 Registration Complete 10/30/2024 14:06:18 10/30/2024 14:22:25 10/30/2024 14:22:25 Reg Complete Request 10/30/2024 14:22:25 Reg Bed Request Complete 10/30/2024 14:22:25 10/30/2024 14:22:25 10/30/2024 14:22:25 Meds Admin Complete 10/30/2024 14:39:33 10/30/2024 15:02:32 Discharge Complete 10/30/2024 14:40:35 10/30/2024 15:31:38 10/30/2024 15:31:38 Transfer Complete 10/30/2024 15:31:38 10/30/2024 15:31:38 10/30/2024 15:31:38 ADDRESS: [facility] [id number] PHYS DOC NOTES: MEDICAL INFORMATION: Prescriptions Given: Medications to Continue with No Changes Other Medications cyclobenzaprine (cyclobenzaprine 10 mg Tab) 1 Tablets By Mouth 3 times a day as needed for spasm. Refills: 1. duloxetine (Cymbalta 60 mg Cap-DR) 1 Capsules By Mouth every day. (do not crush or chew). hydrOXYzine 25 Milligram for 1 Days. ibuprofen (ibuprofen 800 mg Tab) 1 Tablets By Mouth 3 times a day. Refills: 0. lidocaine topical (lidocaine Top 5% film Patch) 1 Patches Topical every day. apply 12 hours on and 12 hours off daily. Refills: 0. omeprazole (omeprazole 40 mg Cap-DR) 1 Capsules By Mouth 2 times a day. Refills: 3. ondansetron (Zofran 4 mg Tab) 1 Tablets By Mouth every 8 hours as needed Nausea/Vomiting. Refills: 1. oxycodone (oxyCODONE 10 mg ER Tab) 1 Tablets By Mouth every 12 hours as needed severe pain. phentermine (Adipex-P 37.5 mg Tab) 1 Tablets By Mouth every day. Refills: 2. spironolactone (spironolactone 25 mg Tab) 1 Tablets By Mouth 2 times a day. Refills: 1. tirzepatide (Zepbound 2.5 mg/0.5 mL subcutaneous solution) 2.5 Milligram Subcutaneous every week. Refills: 3. zolpidem (Ambien 5 mg Tab) 1 Tablets By Mouth once a day (at bedtime) as needed for sleep. Refills:0. PATIENT EDUCATION INFORMATION: Instructions: Chronic Back Pain Follow up: With: Address: When: KRISTAN LAU [address] [place] [address] Business (1) In 3 days 11/02/2024 Comments: Call Dr for diagnosis based follow up DIAGNOSIS: Acute on chronic back pain; Other chronic painNormalOhio[facility] Patient Summaryon [id number] Patient SummaryED Patient Summary [address] [address] Patient Discharge Instructions Person Information Name: JERAD TRACY Age: 49 Years Arrival Date: 10/30/2024 13:58:29 Discharge Diagnosis: Acute on chronic back pain; Other chronic pain Primary Care Physician: FLOR JONES Provider Information Primary Provider: Advanced Dietetic Intern:Landon Tidwell PA-C The exam and treatment you received in the Emergency Department were for an urgent problem and are not intended as complete care. It is important that you follow up with a doctor, nurse practitioner,or physician???s construction assistant for ongoing care. If your symptoms become worse or you do not improve asexpected and you are unable to reach your usual health care provider, you should return to the Emergency Department. We are available 24 hours a day. JERAD TRACY has been given the following list of patient education materials, prescriptions andfollow-up instructions: Follow-up Instructions: With: Address: When: KRISTAN LAU [address] [place], [place] [id number] Business (1) In 3 days 11/02/2024 Comments: Call Dr for diagnosis based follow up In the event that this physician does not participate in your insurance network, please consult with your insurance company to find a nearby participating provider. Patient Education Materials: Chronic Back Pain A MESSAGE TO ALL PATIENTS REGARDING OPIOIDS PRESCRIPTION OPIOIDS: WHAT YOU NEED TO KNOW Prescription opioids can be used to help relieve zfazdzco-pg-oarmcn pain and are often prescribed following a [...] guidance from the Food and Drug Administration (www.fda.gov/Drugs/ResourcesForYou). ??? Visit www.cdc.gov/drugoverdose to learn about the risks of opioids abuse and overdose. ??? If you believe you may be st (more content not included)...[facility] Clinical Summaryon [id number] Clinical SummaryED Clinical Summary [place] [id number] ED Clinical Summary Person Information Name: JERAD TRACY Tasha/[facility] Age: 49 Years : 1975 Sex: Female Language: Malagasy PCP: FLOR JONES Marital Status: Visit Id: Visit Reason: Leg pain-swelling; Hip pain-swelling; Back pain; BACK PAIN Speciality: Acuity: 4 Enc Type: Emergency Med Service: Emergency Arrival: 10/28/2024 12:43:17 Discharge: 10/28/2024 13:24:50 LOS: 000 00:41 Checkin: 10/28/2024 12:43:17 Checkout: 10/28/2024 13:24:50 Dispo Type: Home (Routine DC) EVENTS: Event Name Event Status Request Date/Time Start Date/Time Complete Date/Time Arrive Complete 10/28/2024 12:43:17 10/28/2024 12:43:17 10/28/2024 12:43:17 Document Home Meds Request 10/28/2024 12:43:17 Triage Complete 10/28/2024 12:43:17 10/28/2024 12:53:27 10/28/2024 12:53:27 Registration Complete 10/28/2024 12:46:32 10/28/2024 12:46:32 10/28/2024 12:46:32 Reg Complete Request 10/28/2024 12:46:32 Reg Bed Request Complete 10/28/2024 12:46:32 10/28/2024 12:46:32 10/28/2024 12:46:32 Bed Assign Complete 10/28/2024 12:50:17 10/28/2024 12:50:17 10/28/2024 12:50:17 Dr Exam Complete 10/28/2024 12:50:17 10/28/2024 12:51:34 10/28/2024 12:51:34 RN Exam Complete 10/28/2024 12:50:17 10/28/2024 12:55:17 10/28/2024 12:55:17 Registration Start 10/28/2024 12:51:34 10/28/2024 13:14:47 Dr Exam Complete 10/28/2024 12:51:57 10/28/2024 12:51:57 10/28/2024 12:51:57 Meds Admin Complete 10/28/2024 13:11:56 10/28/2024 13:16:17 Discharge Complete 10/28/2024 13:15:04 10/28/2024 13:24:56 10/28/2024 13:24:56 Transfer Complete 10/28/2024 13:24:56 10/28/2024 13:24:56 10/28/2024 13:24:56 ADDRESS: [address] [place] [phone] PHYS DOC NOTES: MEDICAL INFORMATION: Prescriptions Given: Medications to Continue with No Changes Other Medications cyclobenzaprine (cyclobenzaprine 10 mg Tab) 1 Tablets By Mouth 3 times a day as needed for spasm. Refills: 1. duloxetine (Cymbalta 60 mg Cap-DR) 1 Capsules By Mouth every day. (do not crush or chew). hydrOXYzine 25 Milligram for 1 Days. ibuprofen (ibuprofen 800 mg Tab) 1 Tablets By Mouth 3 times a day. Refills: 0. lidocaine topical (lidocaine Top 5% film Patch) 1 Patches Topical every day. apply 12 hours on and 12 hours off daily. Refills: 0. omeprazole (omeprazole 40 mg Cap-DR) 1 Capsules By Mouth 2 times a day. Refills: 3. ondansetron (Zofran 4 mg Tab) 1 Tablets By Mouth every 8 hours as needed Nausea/Vomiting. Refills: 1. oxycodone (oxyCODONE 10 mg ER Tab) 1 Tablets By Mouth every 12 hours as needed severe pain. phentermine (Adipex-P 37.5 mg Tab) 1 Tablets By Mouth every day. Refills: 2. spironolactone (spironolactone 25 mg Tab) 1 Tablets By Mouth 2 times a day. Refills: 1. tirzepatide (Zepbound 2.5 mg/0.5 mL subcutaneous solution) 2.5 Milligram Subcutaneous every week. Refills: 3. zolpidem (Ambien 5 mg Tab) 1 Tablets By Mouth once a day (at bedtime) as needed for sleep. Refills:0. PATIENT EDUCATION INFORMATION: Instructions: Chronic Back Pain, Pkmf-[id number] Follow up: With: Address: When: KRISTAN LAU In 3 days 10/31/2024 Comments: Call Dr for diagnosis based follow up DIAGNOSIS: Chronic back pain; Other chronic painNormalFisher Pollock Medical CenterED Note-Physicianon [id number] Note-PhysicianED Note-Physician Basic Information Time Seen: Balbina Bryant M.D. 10/28/2024 12:51 Chief Complaint c/o lower back pain into left hip and leg History of Present Illness A 49-year-old female reports to the ED with concerns of acute back pain. Reports history of back pain, and she recently took a long car ride to [place] to drop a family member off her college, and now her back hurts. Reports that she is not having any symptoms. This is a acute flareup of her chronic pain. Reports that no bowel or bladder problems. Reports this is her same old back pain that is always . No new symptoms. Review of Systems No other aggravating or relieving factors no other associated symptoms no other prior treatments orcomplaints. Family: Reviewed and noncontributory Social: lives at home Review of systems negative unless otherwise specified in the HPI. Physical Exam Vitals & Measurements T: 36.6 ???C(Oral) HR: 99(Peripheral) RR: 16 BP: 139/87 SpO2: 97% HT: 160 cm WT: 119 kg BMI: 46.48 General: The patient appears well and in no apparent distress. Patient is resting comfortably in chair. Afebrile Skin: Warm, dry, no pallor noted. Head: Normocephalic, atraumatic Neck: No JVD Eye: PERRLA, EOMI ENT: Moist mucus membranes Cardiovascular: Regular rate. normal peripheral perfusion Respiratory: No respiratory distress. no accessory muscle use. no obvious audible wheezing Chest Wall: no deformity Musculoskeletal: Mild tenderness generalized throughout the entire lumbar sacral region on patient's lower back. No obvious step-off of the lumbar spine felt. GI: No obvious distention Neurological: A&O. moves all extremities equal strength and symmetry Psychiatric: Cooperative and appropriate Medical Decision Making 49-year-old female reports with acute on chronic flareup of her chronic back pain. This is her typical pain, and is currently exacerbated after a car ride. No warning signs for cauda equina syndrome.No bowel or bladder deficits. No saddle anesthesias. Due to concerns patient was treated with pain medication here. Discussed ultimately need to follow-up with her pain medicine doctor. She was understanding. Discussed return precautions. Follow-up with your primary care provider in 3 to 5 days. Ifsymptoms worsen, do not improve, or new symptoms arise please report back to emergency department for further evaluation. The patient was understanding and agreeable to plan moving forward. Assessment/Plan Chronic back pain (M54.9: Dorsalgia, unspecified) Other chronic pain (G89.29: Other chronic pain) Orders: morphine, 8 mg = 2 mL, Injection, IntraMuscular, Once, Stop date 10/28/24 13:11:00 EDT, STAT, Startdate 10/28/24 13:11:00 EDT, 10/28/24 13:11:00 EDT Medications Administered Given morphine 4 mg/mL Inj, 8 mg, IntraMuscular Disposition Plan Patient Discharge Condition stable Discharge Disposition to home Discharge Prescription List Prescriptions No active prescription medications Follow-up With When Contact Information KRISTAN LAU In 3 days 10/31/2024 EDT Additional Instructions: Call Dr for diagnosis based follow up Patient Education Chronic Back Pain, Bpfn-kg-Wbvf Attestation Patient seen and evaluated by the physician construction assistant. Attending physician was present in the emergency department and supervised care. This visit was performed by both the physician and an APC. I performed all aspects of the MDM as documented. This report was transcribed using voice recognition software. Every effort was made to ensure accuracy, however, inadvertently computerized bill recapitulation clerk mistakes may be present. Appropriate healthcare PPE [...] Diarrhea Disease of liver Drug therapy finding Edema Elevated blood pressure reading Encounter for screening mammogram for breast cancer Fatigue Migraine Morbid obesity with BMI of 45.0-49.9, adult Screening for cardiovascular condition Smoker Smoker Tendonitis of right wrist Weight gain Wellness examination Historical Bipolar Continuous opioid dependence Hepatitis C Liver disease Lyme disease Migraines Procedure/Surgical History Hysterectomy (2010), History of cholecystectomy, Hysterectomy, lap x 7 (more content not included)...[facility] HospitalComment on above:Result Comment: Electronically Signed By: Landon Tidwell PA-C\.br\Date and Time Signed: 10/29/2515:42 EDT\.br\Electronically Co-Signed By: Balbina Bryant M.D.\.br\Date and Time Co-Signed: 10/28/24 17:39 EDTED Patient Summaryon 10-28-2024 ED Patient SummaryED Patient Summary [address] [address] Patient Discharge Instructions Person Information Name: JERAD TRACY Age: 49 Years Arrival Date: 10/28/2024 12:43:17 Discharge Diagnosis: Chronic back pain; Other chronic pain Primary Care Physician: CIERSEZWSKI INTENSIVE CARE NURSE-C, FLOR Provider Information Primary Provider: Balbina Bryant M.D. Advanced Dietetic Intern:Landon Tidwell PA-C The exam and treatment you received in the Emergency Department were for an urgent problem and are not intended as complete care. It is important that you follow up with a doctor, nurse practitioner,or physician???s construction assistant for ongoing care. If your symptoms become worse or you do not improve asexpected and you are unable to reach your usual health care provider, you should return to the Emergency Department. We are available 24 hours a day. DEMARCUS JERAD Seng has been given the following list of patient education materials, prescriptions andfollow-up instructions: Follow-up Instructions: With: Address: When: KRISTAN LAU In 3 days 10/31/2024 Comments: Call Dr for diagnosis based follow up In the event that this physician does not participate in your insurance network, please consult with your insurance company to find a nearby participating provider. Patient Education Materials: Chronic Back Pain, Esnk-vs-Yjbi A MESSAGE TO ALL PATIENTS REGARDING OPIOIDS PRESCRIPTION OPIOIDS: WHAT YOU NEED TO KNOW Prescription opioids can be used to help relieve plgwqnbx-pj-tbwrpy pain and are often prescribed following a [...] guidance from the Food and Drug Administration (www.fda.gov/Drugs/ResourcesForYou). ??? Visit www.cdc.gov/drugoverdose to learn about the risks of opioids abuse and overdose. ??? If you believe you may be struggling with addiction, tell your healt (more content not included)...[facility] Clinical Summary [id number] Clinical SummaryED Clinical Summary [address] [address] ED Clinical Summary Person Information Name: JERAD TRACY[place] Age: 49 Years : 1975 Sex: Female Language: Malagasy PCP: FLOR JONES Marital Status: Visit Id: Visit Reason: Back pain; BACK PAIN Speciality: Acuity: 4 Enc Type: Emergency Med Service: Emergency Arrival: 10/25/2024 14:03:43 Discharge: 10/25/2024 14:56:56 LOS: 000 00:53 Checkin: 10/25/2024 14:03:43 Checkout: 10/25/2024 14:56:56 Dispo Type: Home (Routine DC) EVENTS: Event Name Event Status Request Date/Time Start Date/Time Complete Date/Time Arrive Complete 10/25/2024 14:03:43 10/25/2024 14:03:43 10/25/2024 14:03:43 Document Home Meds Request 10/25/2024 14:03:43 Triage Complete 10/25/2024 14:03:43 10/25/2024 14:11:27 10/25/2024 14:11:27 Registration Complete 10/25/2024 14:06:15 10/25/2024 14:06:15 10/25/2024 14:06:15 Reg Complete Request 10/25/2024 14:06:15 Reg Bed Request Complete 10/25/2024 14:06:15 10/25/2024 14:06:15 10/25/2024 14:06:15 Bed Assign Complete 10/25/2024 14:06:59 10/25/2024 14:06:59 10/25/2024 14:06:59 Dr Exam Complete 10/25/2024 14:06:59 10/25/2024 14:08:25 10/25/2024 14:08:25 RN Exam Complete 10/25/2024 14:06:59 10/25/2024 14:52:00 10/25/2024 14:52:00 Registration Request 10/25/2024 14:08:25 Dr Exam Complete 10/25/2024 14:08:44 10/25/2024 14:08:44 10/25/2024 14:08:44 Meds Admin Complete 10/25/2024 14:16:17 10/25/2024 14:28:11 Discharge Complete 10/25/2024 14:23:14 10/25/2024 14:57:01 10/25/2024 14:57:01 Transfer Complete 10/25/2024 14:57:01 10/25/2024 14:57:01 10/25/2024 14:57:01 ADDRESS: [facility] [phone] PHYS DOC NOTES: MEDICAL INFORMATION: Prescriptions Given: Medications to Continue with No Changes Other Medications cyclobenzaprine (cyclobenzaprine 10 mg Tab) 1 Tablets By Mouth 3 times a day as needed for spasm. Refills: 1. duloxetine (Cymbalta 60 mg Cap-DR) 1 Capsules By Mouth every day. (do not crush or chew). hydrOXYzine 25 Milligram for 1 Days. ibuprofen (ibuprofen 800 mg Tab) 1 Tablets By Mouth 3 times a day. Refills: 0. lidocaine topical (lidocaine Top 5% film Patch) 1 Patches Topical every day. apply 12 hours on and 12 hours off daily. Refills: 0. omeprazole (omeprazole 40 mg Cap-DR) 1 Capsules By Mouth 2 times a day. Refills: 3. ondansetron (Zofran 4 mg Tab) 1 Tablets By Mouth every 8 hours as needed Nausea/Vomiting. Refills: 1. oxycodone (oxyCODONE 10 mg ER Tab) 1 Tablets By Mouth every 12 hours as needed severe pain. phentermine (Adipex-P 37.5 mg Tab) 1 Tablets By Mouth every day. Refills: 2. spironolactone (spironolactone 25 mg Tab) 1 Tablets By Mouth 2 times a day. Refills: 1. tirzepatide (Zepbound 2.5 mg/0.5 mL subcutaneous solution) 2.5 Milligram Subcutaneous every week. Refills: 3. zolpidem (Ambien 5 mg Tab) 1 Tablets By Mouth once a day (at bedtime) as needed for sleep. Refills:0. PATIENT EDUCATION INFORMATION: Instructions: Chronic Back Pain Follow up: With: Address: When: KRISTAN JUDI [address] [place] [address] Business (1) In 3 days 10/28/2024 Comments: Call Dr for diagnosis based follow up DIAGNOSIS: Chronic back pain; Other chronic painNormalOhiohealth Van Wert Hospital Medical CenterED Note-Nursingon [id number] Note-NursingED Note-Nursing pt left without dc paperwork. unable to verify if pt had ride home.[facility] Medical CenterED Patient Summaryon [id number] Patient SummaryED Patient Summary [address] [address] Patient Discharge Instructions Person Information Name: JERAD TRACY Age: 49 Years Arrival Date: 10/25/2024 14:03:43 Discharge Diagnosis: Chronic back pain; Other chronic pain Primary Care Physician: FLOR JONES Provider Information Primary Provider: Nehemiah Yepez MD Advanced Dietetic Intern:Landon Tidwell PA-C The exam and treatment you received in the Emergency Department were for an urgent problem and are not intended as complete care. It is important that you follow up with a doctor, nurse practitioner,or physician???s construction assistant for ongoing care. If your symptoms become worse or you do not improve asexpected and you are unable to reach your usual health care provider, you should return to the Emergency Department. We are available 24 hours a day. JERAD TRACY has been given the following list of patient education materials, prescriptions andfollow-up instructions: Follow-up Instructions: With: Address: When: KRISTAN JUDI [address] [place] [address] Gravitant (1) In 3 days 10/28/2024 Comments: Call for diagnosis based follow up In the event that this physician does not participate in your insurance network, please consult with your insurance company to find a nearby participating provider. Patient Education Materials: Chronic Back Pain A MESSAGE TO ALL PATIENTS REGARDING OPIOIDS PRESCRIPTION OPIOIDS: WHAT YOU NEED TO KNOW Prescription opioids can be used to help relieve pmafzvro-mt-yqqnlh pain and are often prescribed following a [...] guidance from the Food and Drug Administration (www.fda.gov/Drugs/ResourcesForYou). ??? Visit www.cdc.gov/drugoverdose to learn about the risks of opioids abuse and overdose. ??? If you believe y (more content not included)...[facility] Clinical Summaryon [id number] Clinical SummaryED Clinical Summary [place] [address] ED Clinical Summary Person Information Name: [facility] 49 [facility] : 1975 Sex: Female Language: Malagasy PCP: FLOR JONES Marital Status: Visit Id: Visit Reason: Back pain; BACK PAIN Speciality: Acuity: 5 Enc Type: Emergency Med Service: Emergency Arrival: 10/23/2024 09:34:50 Discharge: 10/23/2024 10:43:20 LOS: 000 01:09 Checkin: 10/23/2024 09:34:50 Checkout: 10/23/2024 10:43:20 Dispo Type: Home (Routine DC) EVENTS: Event Name Event Status Request Date/Time Start Date/Time Complete Date/Time Arrive Complete 10/23/2024 09:34:50 10/23/2024 09:34:50 10/23/2024 09:34:50 Document Home Meds Request 10/23/2024 09:34:50 Triage Complete 10/23/2024 09:34:50 10/23/2024 09:38:39 10/23/2024 09:38:39 Bed Assign Complete 10/23/2024 09:36:05 10/23/2024 09:36:05 10/23/2024 09:36:05 Dr Exam Complete 10/23/2024 09:36:05 10/23/2024 10:03:44 10/23/2024 10:03:44 RN Exam Complete 10/23/2024 09:36:05 10/23/2024 09:39:31 10/23/2024 09:39:31 Registration Complete 10/23/2024 10:03:44 10/23/2024 10:15:19 10/23/2024 10:15:19 Dr Exam Complete 10/23/2024 10:04:15 10/23/2024 10:04:15 10/23/2024 10:04:15 Meds Admin Complete 10/23/2024 10:05:55 10/23/2024 10:15:45 Discharge Complete 10/23/2024 10:06:11 10/23/2024 10:43:25 10/23/2024 10:43:25 Reg Complete Request 10/23/2024 10:15:19 Reg Bed Request Complete 10/23/2024 10:15:19 10/23/2024 10:15:19 10/23/2024 10:15:19 Transfer Complete 10/23/2024 10:43:25 10/23/2024 10:43:25 10/23/2024 10:43:25 ADDRESS: [address] [place] [phone] [facility] DOC NOTES: MEDICAL INFORMATION: Prescriptions Given: Medications to Continue with No Changes Other Medications cyclobenzaprine (cyclobenzaprine 10 mg Tab) 1 Tablets By Mouth 3 times a day as needed for spasm. Refills: 1. duloxetine (Cymbalta 60 mg Cap-DR) 1 Capsules By Mouth every day. (do not crush or chew). hydrOXYzine 25 Milligram for 1 Days. ibuprofen (ibuprofen 800 mg Tab) 1 Tablets By Mouth 3 times a day. Refills: 0. lidocaine topical (lidocaine Top 5% film Patch) 1 Patches Topical every day. apply 12 hours on and 12 hours off daily. Refills: 0. omeprazole (omeprazole 40 mg Cap-DR) 1 Capsules By Mouth 2 times a day. Refills: 3. ondansetron (Zofran 4 mg Tab) 1 Tablets By Mouth every 8 hours as needed Nausea/Vomiting. Refills: 1. oxycodone (oxyCODONE 10 mg ER Tab) 1 Tablets By Mouth every 12 hours as needed severe pain. phentermine (Adipex-P 37.5 mg Tab) 1 Tablets By Mouth every day. Refills: 2. spironolactone (spironolactone 25 mg Tab) 1 Tablets By Mouth 2 times a day. Refills: 1. tirzepatide (Zepbound 2.5 mg/0.5 mL subcutaneous solution) 2.5 Milligram Subcutaneous every week. Refills: 3. zolpidem (Ambien 5 mg Tab) 1 Tablets By Mouth once a day (at bedtime) as needed for sleep. Refills:0. PATIENT EDUCATION INFORMATION: Instructions: Chronic Back Pain Follow up: With: Address: When: KRISTANRadha LAU [address] [place] [address] Business (1) In 3 days 10/26/2024 DIAGNOSIS: Back pain, chronic; Other chronic painNormalFisher Sal Medical CenterED Note-Physicianon [id number] Note-PhysicianED Note-Physician Basic Information Time Seen: Robert Taylor PA-C 10/23/2024 10:03 Chief Complaint pt here for chornic back pain. History of Present Illness 49-year-old female comes to the ED for evaluation of back pain. Longstanding history of chronic back pain. Follows with pain management. Presents today with acute exacerbation. No new or unusual symptoms. No recent trauma. No acute weakness or paresthesias. Review of Systems A 10 point review of systems is negative except as noted above. Medical and Surgical History: Reviewed and noted Social history: Lives at home Tobacco: Denies Physical Exam Vitals & Measurements T: 36.6 ???C(Oral) HR: 122(Peripheral) RR: 16 BP: 162/75 SpO2: 99% HT: 160 cm WT: 119 kg BMI: 46.48 Nurses notes and vital signs reviewed and patient is not hypoxic. General: The patient appears well, resting comfortably. Skin: Warm, dry. Head: Atraumatic. Neck: No JVD. Eye: Normal conjunctiva. Ears, Nose, Mouth, and Throat: Moist mucous membranes. Cardiovascular: Strong distal pulses. Chest wall: Respiratory: Respirations are nonlabored. Back: Normal range of motion. Musculoskeletal: Normal ROM with no gross deformity. Gastrointestinal: Urological: Neurological: Awake and alert. No focal deficits. Follows commands. Psychiatric: Cooperative. Medical Decision Making Patient presents acute on chronic back pain. Well-known to the emergency department with frequent exacerbations. She is resting comfortably. She has no evidence of neurovascular compromise. She has had no recent trauma for imaging. Actively follows with pain management. She is medicated here and discharged home. Patient was encouraged to return to the ED if symptoms worsen or change. Assessment/Plan Back pain, chronic (M54.9: Dorsalgia, unspecified) Other chronic pain (G89.29: Other chronic pain) Orders: morphine, 8 mg = 2 mL, Injection, IntraMuscular, Once, Stop date 10/23/24 10:05:00 EDT, STAT, Startdate 10/23/24 10:05:00 EDT, 10/23/24 10:05:00 EDT Medications Administered Given morphine 4 mg/mL Inj, 8 mg, IntraMuscular Disposition Plan Patient Discharge Condition Disposition: Discharged home Condition: Improved and stable Counseled: Patient and/or family were counseled to workup, results, treatment plan and follow-up recommendations Discharge Prescription List Prescriptions No active prescription medications Follow-up With When Contact Information KRISTAN LAU In 3 days 10/26/2024 EDT [address] [place] [address]- Business (1) Additional Instructions: Patient Education Chronic Back Pain Attestation I performed a substantive part of the MDM during the patient???s E/M visit. I personally made or approved the documented management plan and acknowledge its risk of complications. (Independent Interpretation) My (EKG/X-Ray/US/CT) interpretation as above. (Discussion) Management/test interpretation discussed with APC. This report was transcribed using voice recognition software. Every effort was made to ensure accuracy, however, inadvertently computerized bill recapitulation clerk mistakes may be present. Appropriate healthcare PPE was used in evaluating this patient. Problem List/Past Medical History Ongoing Arthritis of first carpometacarpal joint of right hand Bipolar disorder Chronic back pain Chronic hepatitis C Closed fracture of trapezoidal bone of wrist COVID-19 Diarrhea Disease of liver Drug therapy finding Edema Elevated blood pressure reading Encounter for screening mammogram for breast cancer Fatigue Migraine Morbid obesity with BMI of 45.0-49.9, adult Screening for cardiovascular condition Smoker Smoker Tendonitis of right wrist Weight gain Wellness examination Historical Bipolar Continuous opioid dependence Hepatitis C Liver disease Lyme disease Migraines Procedure/Surgical History Hysterectomy (2010), History of cholecystectomy, Hysterectomy, lap x 7, Tonillectomy with adenoids. Medications Inpatient No active inpatient medications Home Adipex-P 37.5 mg Tab, 37.5 mg= 1 tab(s), Oral, Daily, 2 refills Ambien 5 mg Tab, 5 mg= 1 tab(s), Oral, Once a day (at bedtime), PRN cyclobenzaprine 10 mg Tab, 10 mg= 1 tab(s), Oral, TID, PRN, 1 refills Cymbalta 60 mg Cap-DR, 1 cap(s), Oral, Daily hydrOXYzine, 25 mg ibuprofen 800 mg Tab, 800 mg= 1 tab(s), Oral, TID lidocaine Top 5% film Patch, 1 patch(es), Topical, Daily omeprazole 40 mg Cap-DR, 40 mg= 1 cap(s), Oral, BID, 3 refills oxyCODONE 10 mg ER Tab, 10 mg= 1 tab(s), Oral, q12hr, PRN spironolactone 25 mg Tab, 25 mg= 1 tab(s), Oral, BID, 1 refills Zepbound 2.5 mg/0.5 mL subcutaneous solution, 2.5 mg, SubCutaneous, qWeek, 3 refills Zofran 4 mg Tab, 4 mg= 1 tab(s), Oral, q8hr, PRN, 1 refills Allergies Tylenol (Unknown) Vicodin (Hives) nabumetone (Rash) penicillin (Hives) Social History Alcohol - Denies Alcohol Use, 07/10/2012 Ne (more content not included)...[facility] HospitalComment on above:Result Comment: Electronically Signed By: Brandon MILES, Robert\.br\Date and Time Signed: 10/23/2509:25 EDT\.br\Electronically Co-Signed By: Chandana Varela MD\.br\Date and Time Co-Signed: 10/23/24 17:56 EDTED Patient Summaryon [id number] Patient SummaryED Patient Summary [address] [address] Patient Discharge Instructions Person Information Name: JERAD TRACY Age: 49 Years Arrival Date: 10/23/2024 09:34:50 Discharge Diagnosis: Back pain, chronic; Other chronic pain Primary Care Physician: FLOR JONES Provider Information Primary Provider: Chandana Varela MD Advanced Dietetic Intern:Robert Taylor PA-C The exam and treatment you received in the Emergency Department were for an urgent problem and are not intended as complete care. It is important that you follow up with a doctor, nurse practitioner,or physician???s construction assistant for ongoing care. If your symptoms become worse or you do not improve asexpected and you are unable to reach your usual health care provider, you should return to the Emergency Department. We are available 24 hours a day. JERAD TRACY has been given the following list of patient education materials, prescriptions andfollow-up instructions: Follow-up Instructions: With: Address: When: KRISTAN LAU [address] [place] [address] Business (1) In 3 days 10/26/2024 In the event that this physician does not participate in your insurance network, please consult with your insurance company to find a nearby participating provider. Patient Education Materials: Chronic Back Pain A MESSAGE TO ALL PATIENTS REGARDING OPIOIDS PRESCRIPTION OPIOIDS: WHAT YOU NEED TO KNOW Prescription opioids can be used to help relieve xbuhhtpm-ja-jdolts pain and are often prescribed following a [...] guidance from the Food and Drug Administration (www.fda.gov/Drugs/ResourcesForYou). ??? Visit www.cdc.gov/drugoverdose to learn about the risks of opioids abuse and overdose. ??? If you believe you may be struggling with addiction, tell your health ca (more content not included)...[facility] CenterED Prov Noteon [id number] Prov NoteED PROVIDER NOTE [facility] NAME: Jerad Tracy AGE: 49 y.o. : 1975 VISIT DATE: 10/22/2024 CSN: [id number] PCP: No, Physician Chief Complaint Patient presents with Low Back Pain Patient is a 49-year-old female with a past medical history of chronic back pain and depression who presents today for concern of back pain exacerbation. Patient states her last few days she has had pain in her left lower back that radiates posteriorly down her left leg. Patient denies any midline spinal canal tenderness, bowel or bladder incontinence, perianal anesthesia, chest pain, shortness of breath, lightheadedness, dizziness or syncope. Patient denies any history of recent traumatic injuries. Patient requesting pain medication. Past Medical History: Diagnosis Date Back pain Bulging lumbar disc L4-L5; SEVERE NARROWING OF L5-S1 Depression Past Surgical History: Procedure Laterality Date BACK SURGERY BUNIONECTOMY Bilateral 2022 CHOLECYSTECTOMY HYSTERECTOMY TONSILLECTOMY AND ADENOIDECTOMY TYMPANOSTOMY TUBE PLACEMENT History reviewed. No pertinent family history. Social [...] 24 hrs: BP Temp Pulse Resp SpO2 Height Weight 10/22/24 1927 -- -- -- (!) 19 -- -- -- 10/22/24 1901 -- -- -- -- 98 % -- -- 10/22/24 1859 (!) 144/101 97.1 degrees F (36.2 degrees C) 99 16 98 % 5' 3 120.2 kg (265 lb) Physical Exam Vitals and nursing note reviewed. Constitutional: Appearance: Normal appearance. HENT: Head: Normocephalic. Eyes: Pupils: Pupils are equal, round, and reactive to light. Cardiovascular: Rate and Rhythm: Normal rate and regular rhythm. Pulses: Normal pulses. Heart sounds: Normal heart sounds. Musculoskeletal: Cervical back: Normal range of motion. Comments: Patient has left lower lumbar paraspinal tenderness with associated hypertonicity. No midline spinal canal tenderness or gross deformity. Stable pelvis. Pulmonary: Effort: Pulmonary effort is normal. Breath sounds: Normal breath sounds. Skin: General: Skin is warm. Capillary Refill: Capillary refill takes less than 2 seconds. Neurological: General: No focal deficit present. Mental Status: She is alert. Psychiatric: Mood and Affect: Mood normal. Laboratory & Radiographic Imaging (if done): No results found for this visit on 10/22/24. No orders to display Procedures Medical Decision Making Patient was seen and evaluated for concern of exacerbation of chronic lower back pain. Patient does not any red flags of back pain and therefore additional imaging was not done at this time. Patient given Dilaudid and prednisone. Patient given a prescription for Percocet and prednisone. Patient states she is okay to take Percocet. Patient provided with appropriate follow-up and educated re's return and was discharged in stable condition The patient has been informed that they [...] Disposition ED Disposition Discharge Condition Stable Comment Jerad Tracy discharged to home/self care in stable condition. Follow-up Information 1. Loretta Mayo MD. Specialty: Family Medicine Why: As needed, If symptoms worsen [address] [address] 2. Mora Butt MD. Specialty: Orthopedic Surgery Why: As needed, If symptoms worsen [address] [facility] [address] Contact information for after-discharge care Follow-up information has not been specified. New Prescriptions predniSONE (DELTASONE) 50 MG tablet Take 1 (one) tablet (more content not included)...[facility] [id number] Clinical SummaryED Clinical Summary [place] [id number] ED Clinical Summary Person Information Name: JERAD TRACY Tasha/[facility] Age: 49 Years : 1975 Sex: Female Language: Malagasy PCP: FLOR JONES Marital Status: Visit Id: Visit Reason: Back pain; BACK PAIN Speciality: Acuity: 4 Enc Type: Emergency Med Service: Emergency Arrival: 10/19/2024 09:18:14 Discharge: 10/19/2024 09:55:21 LOS: 000 00:37 Checkin: 10/19/2024 09:18:14 Checkout: 10/19/2024 09:55:21 Dispo Type: Home (Routine DC) EVENTS: Event Name Event Status Request Date/Time Start Date/Time Complete Date/Time Arrive Complete 10/19/2024 09:18:14 10/19/2024 09:18:14 10/19/2024 09:18:14 Document Home Meds Request 10/19/2024 09:18:14 Triage Complete 10/19/2024 09:18:14 10/19/2024 09:25:45 10/19/2024 09:25:45 Bed Assign Complete 10/19/2024 09:19:12 10/19/2024 09:19:12 10/19/2024 09:19:12 Dr Exam Complete 10/19/2024 09:19:12 10/19/2024 09:21:13 10/19/2024 09:21:13 RN Exam Complete 10/19/2024 09:19:12 10/19/2024 09:28:45 10/19/2024 09:28:45 Registration Complete 10/19/2024 09:20:04 10/19/2024 09:20:04 10/19/2024 09:20:04 Reg Complete Request 10/19/2024 09:20:04 Reg Bed Request Complete 10/19/2024 09:20:04 10/19/2024 09:20:04 10/19/2024 09:20:04 Registration Complete 10/19/2024 09:21:13 10/19/2024 09:31:04 10/19/2024 09:31:04 Dr Exam Complete 10/19/2024 09:28:57 10/19/2024 09:28:57 10/19/2024 09:28:57 Meds Admin Complete 10/19/2024 09:30:50 10/19/2024 09:37:03 Discharge Complete 10/19/2024 09:30:54 10/19/2024 09:59:28 10/19/2024 09:59:28 Transfer Complete 10/19/2024 09:59:28 10/19/2024 09:59:28 10/19/2024 09:59:28 ADDRESS: [address] [place] [phone] [facility] DOC NOTES: MEDICAL INFORMATION: Prescriptions Given: Medications to Continue with No Changes Other Medications cyclobenzaprine (cyclobenzaprine 10 mg Tab) 1 Tablets By Mouth 3 times a day as needed for spasm. Refills: 1. duloxetine (Cymbalta 60 mg Cap-DR) 1 Capsules By Mouth every day. (do not crush or chew). hydrOXYzine 25 Milligram for 1 Days. ibuprofen (ibuprofen 800 mg Tab) 1 Tablets By Mouth 3 times a day. Refills: 0. lidocaine topical (lidocaine Top 5% film Patch) 1 Patches Topical every day. apply 12 hours on and 12 hours off daily. Refills: 0. omeprazole (omeprazole 40 mg Cap-DR) 1 Capsules By Mouth 2 times a day. Refills: 3. ondansetron (Zofran 4 mg Tab) 1 Tablets By Mouth every 8 hours as needed Nausea/Vomiting. Refills: 1. oxycodone (oxyCODONE 10 mg ER Tab) 1 Tablets By Mouth every 12 hours as needed severe pain. phentermine (Adipex-P 37.5 mg Tab) 1 Tablets By Mouth every day. Refills: 2. spironolactone (spironolactone 25 mg Tab) 1 Tablets By Mouth 2 times a day. Refills: 1. tirzepatide (Zepbound 2.5 mg/0.5 mL subcutaneous solution) 2.5 Milligram Subcutaneous every week. Refills: 3. zolpidem (Ambien 5 mg Tab) 1 Tablets By Mouth once a day (at bedtime) as needed for sleep. Refills:0. PATIENT EDUCATION INFORMATION: Instructions: Chronic Back Pain Follow up: With: Address: When: KRISTAN LAU [address] [place] [phone] [facility] (8) In 3 days 10/22/2024 DIAGNOSIS: Back pain, chronic; Other chronic painNormalFisher Pollock Medical CenterED Note-Physicianon [id number] Note-PhysicianED Note-Physician Basic Information Time Seen: Robert Taylor PA-C 10/19/2024 09:21 Chief Complaint Patient to ER c/o chronic back pain. pt states she had injections in her spine on 10/08. Pt states possible pain pump placement next week. History of Present Illness 49-year-old female comes to the ED for evaluation of back pain. Patient with longstanding history of chronic back pain, actively follows with pain management. Did have recent epidural injections. Currently being set up for a pain pump. Presents today with acute exacerbation. She attributes this to recent car travel. Denies any new or unusual symptoms. No acute weakness or paresthesias. Review of Systems A 10 point review of systems is negative except as noted above. Medical and Surgical History: Reviewed and noted Social history: Lives at home Tobacco: Denies Physical Exam Vitals & Measurements T: 36.7 ???C(Oral) HR: 111(Peripheral) RR: 18 BP: 154/82 SpO2: 93% HT: 160 cm WT: 119 kg BMI: 46.48 Nurses notes and vital signs reviewed and patient is not hypoxic. General: The patient appears well, resting comfortably. Skin: Warm, dry. Head: Atraumatic. Neck: No JVD. Eye: Normal conjunctiva. Ears, Nose, Mouth, and Throat: Moist mucous membranes. Cardiovascular: Strong distal pulses. Chest wall: Respiratory: Respirations are nonlabored. Back: Normal range of motion. Musculoskeletal: Normal ROM with no gross deformity. Gastrointestinal: Urological: Neurological: Awake and alert. No focal deficits. Follows commands. Psychiatric: Cooperative. Medical Decision Making Patient with acute on chronic back pain. No new or unusual symptoms. No acute weakness or paresthesias. Overall well-appearing and nontoxic. She is medicated for pain discharged to follow-up with herpain specialist. Patient was encouraged to return to the ED if symptoms worsen or change. Assessment/Plan Back pain, chronic (M54.9: Dorsalgia, unspecified) Other chronic pain (G89.29: Other chronic pain) Orders: morphine, 8 mg = 2 mL, Injection, IntraMuscular, Once, Stop date 10/19/24 9:30:00 EDT, STAT, Start date 10/19/24 9:30:00 EDT, 10/19/24 9:30:00 EDT Disposition Plan Patient Discharge Condition Disposition: Discharged home Condition: Improved and stable Counseled: Patient and/or family were counseled to workup, results, treatment plan and follow-up recommendations Discharge Prescription List Prescriptions No active prescription medications Follow-up With When Contact Information KRISTAN LAU In 3 days 10/22/[address] [place] [phone] Business (1) Additional Instructions: Patient Education Chronic Back Pain Attestation I performed a substantive part of the MDM during the patient???s E/M visit. I personally made or approved the documented management plan and acknowledge its risk of complications. (Independent Interpretation) My (EKG/X-Ray/US/CT) interpretation as above. (Discussion) Management/test interpretation discussed with APC. This report was transcribed using voice recognition software. Every effort was made to ensure accuracy, however, inadvertently computerized bill recapitulation clerk mistakes may be present. Appropriate healthcare PPE was used in evaluating this patient. Problem List/Past Medical History Ongoing Arthritis of first carpometacarpal joint of right hand Bipolar disorder Chronic back pain Chronic hepatitis C Closed fracture of trapezoidal bone of wrist COVID-19 Diarrhea Disease of liver Drug therapy finding Edema Elevated blood pressure reading Encounter for screening mammogram for breast cancer Fatigue Migraine Morbid obesity with BMI of 45.0-49.9, adult Screening for cardiovascular condition Smoker Smoker Tendonitis of right wrist Weight gain Wellness examination Historical Bipolar Continuous opioid dependence Hepatitis C Liver disease Lyme disease Migraines Procedure/Surgical History Hysterectomy (2010), History of cholecystectomy, Hysterectomy, lap x 7, Tonillectomy with adenoids. Medications Inpatient morphine 4 mg/mL Inj, 8 mg= 2 mL, IntraMuscular, Once Home Adipex-P 37.5 mg Tab, 37.5 mg= 1 tab(s), Oral, Daily, 2 refills Ambien 5 mg Tab, 5 mg= 1 tab(s), Oral, Once a day (at bedtime), PRN cyclobenzaprine 10 mg Tab, 10 mg= 1 tab(s), Oral, TID, PRN, 1 refills Cymbalta 60 mg Cap-DR, 1 cap(s), Oral, Daily hydrOXYzine, 25 mg ibuprofen 800 mg Tab, 800 mg= 1 tab(s), Oral, TID lidocaine Top 5% film Patch, 1 patch(es), Topical, Daily omeprazole 40 mg Cap-DR, 40 mg= 1 cap(s), Oral, BID, 3 refills oxyCODONE 10 mg ER Tab, 10 mg= 1 tab(s), Oral, q12hr, PRN spironolactone 25 mg Tab, 25 mg= 1 tab(s), Oral, BID, 1 refills Zepbound 2.5 mg/0.5 mL subcutaneous solution, 2.5 mg, SubCutaneous, qWeek, 3 refills Zofran 4 mg Tab, 4 mg= 1 tab(s), Oral, q8hr, PRN, 1 refills Allergies Tylenol (Unknown) Vicodin (Hives) nabumetone (Rash) (more content not included)...[facility] HospitalComment on above: Result Comment: Electronically Signed By: Robert Taylor PA-C\.br\Date and Time Signed: 10/19/2508:33 EDT\.br\Electronically Co-Signed By: Jorge Mcintosh DO\.br\Date and Time Co-Signed: 10/19/24 18:49 EDTED Patient Summaryon [id number] Patient SummaryED Patient Summary [place] [id number] Patient Discharge Instructions Person Information Name: JERAD TRACY Age: 49 Years Arrival Date: 10/19/2024 09:18:14 Discharge Diagnosis: Back pain, chronic; Other chronic pain Primary Care Physician: FLOR JONES Provider Information Primary Provider: Jorge Mcintosh DO Advanced Dietetic Intern:Robert Taylor PA-C The exam and treatment you received in the Emergency Department were for an urgent problem and are not intended as complete care. It is important that you follow up with a doctor, nurse practitioner,or physician???s construction assistant for ongoing care. If your symptoms become worse or you do not improve asexpected and you are unable to reach your usual health care provider, you should return to the Emergency Department. We are available 24 hours a day. JERAD TRACY has been given the following list of patient education materials, prescriptions andfollow-up instructions: Follow-up Instructions: With: Address: When: KRISTAN LAU [address] [place] [phone] Business (1) In 3 days 10/22/2024 In the event that this physician does not participate in your insurance network, please consult with your insurance company to find a nearby participating provider. Patient Education Materials: Chronic Back Pain A MESSAGE TO ALL PATIENTS REGARDING OPIOIDS PRESCRIPTION OPIOIDS: WHAT YOU NEED TO KNOW Prescription opioids can be used to help relieve kybmcnof-ku-oijnpl pain and are often prescribed following a [...] guidance from the Food and Drug Administration (www.fda.gov/Drugs/ResourcesForYou). ??? Visit www.cdc.gov/drugoverdose to learn about the risks of opioids abuse and overdose. ??? If you believe you may be struggling with addiction, tell your healt (more content not included)...[facility] Clinical Summaryon [id number] Clinical SummaryED Clinical Summary [place] [id number] ED Clinical Summary Person Information Name: JERAD TRACY Tasha/[facility] Age: 49 Years : 1975 Sex: Female Language: Malagasy PCP: FLOR JONES Marital Status: Visit Id: Visit Reason: Back pain; BACK PAIN Speciality: Acuity: 5 Enc Type: Emergency Med Service: Emergency Arrival: 10/15/2024 13:52:19 Discharge: 10/15/2024 15:01:06 LOS: 000 01:09 Checkin: 10/15/2024 13:52:19 Checkout: 10/15/2024 15:01:06 Dispo Type: Home (Routine DC) EVENTS: Event Name Event Status Request Date/Time Start Date/Time Complete Date/Time Arrive Complete 10/15/2024 13:52:19 10/15/2024 13:52:19 10/15/2024 13:52:19 Document Home Meds Request 10/15/2024 13:52:19 Triage Complete 10/15/2024 13:52:19 10/15/2024 13:57:08 10/15/2024 13:57:08 Bed Assign Complete 10/15/2024 13:53:26 10/15/2024 13:53:26 10/15/2024 13:53:26 Dr Exam Complete 10/15/2024 13:53:26 10/15/2024 14:04:46 10/15/2024 14:04:46 RN Exam Complete 10/15/2024 13:53:26 10/15/2024 13:59:05 10/15/2024 13:59:05 Registration Complete 10/15/2024 13:55:18 10/15/2024 13:55:18 10/15/2024 13:55:18 Reg Complete Request 10/15/2024 13:55:18 Reg Bed Request Complete 10/15/2024 13:55:18 10/15/2024 13:55:18 10/15/2024 13:55:18 Registration Request 10/15/2024 14:04:46 Meds Admin Complete 10/15/2024 14:29:37 10/15/2024 14:40:37 Discharge Complete 10/15/2024 14:30:10 10/15/2024 15:01:10 10/15/2024 15:01:10 Transfer Complete 10/15/2024 15:01:10 10/15/2024 15:01:10 10/15/2024 15:01:10 ADDRESS: [address] [place] [phone] PHYS DOC NOTES: MEDICAL INFORMATION: Prescriptions Given: Medications to Continue with No Changes Other Medications cyclobenzaprine (cyclobenzaprine 10 mg Tab) 1 Tablets By Mouth 3 times a day as needed for spasm. Refills: 1. duloxetine (Cymbalta 60 mg Cap-DR) 1 Capsules By Mouth every day. (do not crush or chew). hydrOXYzine 25 Milligram for 1 Days. lidocaine topical (lidocaine Top 5% film Patch) 1 Patches Topical every day. apply 12 hours on and 12 hours off daily. Refills: 0. omeprazole (omeprazole 40 mg Cap-DR) 1 Capsules By Mouth 2 times a day. Refills: 3. ondansetron (Zofran 4 mg Tab) 1 Tablets By Mouth every 8 hours as needed Nausea/Vomiting. Refills: 1. oxycodone (oxyCODONE 10 mg ER Tab) 1 Tablets By Mouth every 12 hours as needed severe pain. phentermine (Adipex-P 37.5 mg Tab) 1 Tablets By Mouth every day. Refills: 2. spironolactone (spironolactone 25 mg Tab) 1 Tablets By Mouth 2 times a day. Refills: 1. tirzepatide (Zepbound 2.5 mg/0.5 mL subcutaneous solution) 2.5 Milligram Subcutaneous every week. Refills: 3. zolpidem (Ambien 5 mg Tab) 1 Tablets By Mouth once a day (at bedtime) as needed for sleep. Refills:0. PATIENT EDUCATION INFORMATION: Instructions: Chronic Back Pain; Acute Back Pain, Adult Follow up: With: Address: When: [facility] [address] [place] [phone] [facility] (1) In 3 days 10/18/2024 With: Address: When: KRISTAN LAU In 3 days DIAGNOSIS: Acute on chronic low back pain; Other chronic painNormalFisher Pollock Medical CenterED Note-Physicianon [id number] Note-PhysicianED Note-Physician Basic Information Time Seen: Gumaro MILES, Manuel Hernandez. 10/15/2024 14:04 Chief Complaint pt reports back pain, wokring with pain management. History of Present Illness Patient is a 49-year-old female who presents today for evaluation of her acute on chronic back pain. She is in the middle of working with pain management to get a pain pump. She just had a trial injection and got relief for about 4 days but pain shortly returned. It has been refractory to her at home narcotics in the form of oxycodone. It is left-sided as it always is radiating into her left leg.She denies any saddle anesthesia, loss of bowel or bladder control, or lower extremity weakness. She states that she is getting her final pain pump since she responded to the trial in 1.5 weeks. Review of Systems No other aggravating or relieving factors no other associated symptoms no other prior treatments orcomplaints. Family: Reviewed and noncontributory Social: lives at home Review of systems negative unless otherwise specified in the HPI. Physical Exam Vitals & Measurements T: 37 ???C(Oral) HR: 105(Peripheral) RR: 17 BP: 157/101 SpO2: 98% HT: 160 cm WT: 119 kg BMI: 46.48 Vital Signs reviewed and noted. General: Alert, no acute distress, patient resting comfortably Skin: warm, intact, no pallor noted Head: Normocephalic, atraumatic Eye: Normal conjunctiva Cardiac: Normal peripheral perfusion Respiratory: No acute distress Musculoskeletal: No deformity, full ROM. Lumbar spine: Left-sided distal lumbar spinal tenderness to palpation. Negative straight leg raise.No step-off or crepitus appreciated. Intact strength and sensation to bilateral lower extremities. DPP 2+ bilaterally. Neurological: alert and oriented, normal sensory and motor observed. Psychiatric: Cooperative Medical Decision Making Patient is a 49-year-old female who presents today for evaluation of acute on chronic back pain. She is working with pain management to get a pain pump. Just had a trial injection and got relief for about 4 days but pain shortly returned. No relief with her at home medication. Is left-sided radiating down her left leg. Denies signs or symptoms concerning for cauda equina syndrome. She is getting her final pain pump since she responded to the trial and 1.5 weeks. Left-sided distal paraspinal tenderness palpation. Negative straight leg raise. Intact strength and sensation to bilateral lower extremities. DPP 2+ bilaterally. Pain is consistent with her acute on chronic back pain. She is given aone-time dose of IM morphine here. She will be discharged home with close follow-up with her pain management doctor for pain pump placement in 1.5 weeks. We discussed if she has new or worsening symptoms she should promptly return to the ED for evaluation. Return to ED precautions were reviewed with the patient at length. Assessment/Plan Acute on chronic low back pain (M54.50: Low back pain, unspecified) Other chronic pain (G89.29: Other chronic pain) Orders: morphine, 4 mg = 1 mL, Injection, IntraMuscular, Once, Stop date 10/15/24 14:29:00 EDT, STAT, Startdate 10/15/24 14:29:00 EDT, 10/15/24 14:29:00 EDT Medications Administered Given morphine 4 mg/mL Inj, 4 mg, IntraMuscular Disposition Plan Patient Discharge Condition Stable Discharge Disposition Home Discharge Prescription List Prescriptions No active prescription medications Follow-up With When Contact Information [facility] In 3 days 10/18/[address] [place] [phone] Business (1) Additional Instructions: KRISTAN LAU In 3 days Additional Instructions: Patient Education Chronic Back Pain Acute Back Pain, Adult Attestation Patient seen and evaluated by the physician construction assistant. Attending physician was present in the emergency department and supervised care. This visit was performed by both the physician and an APC. I performed all aspects of the MDM as documented. This report was transcribed using voice recognition software. Every effort was made to ensure accuracy, however, inadvertently computerized bill recapitulation clerk mistakes may be present. Appropriate healthcare PPE was used in evaluating this patient. The healthcare provider was wearinggloves, and utilizing proper hand hygiene. All equipment [...] Diarrhea Disease of liver Drug therapy finding Edema Elevated blo (more content not included)...[facility] Comment on above:Result Comment: Electronically Signed By: Manuel Naik PA-C\.br\Date and Time Signed: 10/15/2516:15 EDT\.br\Electronically Co-Signed By: Cameron Rene DO.br\Date and Time Co-Signed: 10/15/24 19:03 EDTED Patient Summaryon [id number] Patient SummaryED Patient Summary [address] [address] Patient Discharge Instructions Person Information Name: JERAD TRACY Age: 49 Years Arrival Date: 10/15/2024 13:52:19 Discharge Diagnosis: Acute on chronic low back pain; Other chronic pain Primary Care Physician: FLOR JONES Provider Information Primary Provider: Advanced Dietetic Intern:Manuel Naik PA-C. The exam and treatment you received in the Emergency Department were for an urgent problem and are not intended as complete care. It is important that you follow up with a doctor, nurse practitioner,or physician???s construction assistant for ongoing care. If your symptoms become worse or you do not improve asexpected and you are unable to reach your usual health care provider, you should return to the Emergency Department. We are available 24 hours a day. JERAD TRACY has been given the following list of patient education materials, prescriptions andfollow-up instructions: Follow-up Instructions: With: Address: When: [facility] [address] [place], [place] [address] [phone] Business (1) In 3 days 10/18/2024 With: Address: When: KRISTAN LAU In 3 days In the event that this physician does not participate in your insurance network, please consult with your insurance company to find a nearby participating provider. Patient Education Materials: Chronic Back Pain; Acute Back Pain, Adult A MESSAGE TO ALL PATIENTS REGARDING OPIOIDS PRESCRIPTION OPIOIDS: WHAT YOU NEED TO KNOW Prescription opioids can be used to help relieve afymtidw-gt-apgrdx pain and are often prescribed following a [...] guidance from the Food and Drug Administration (www.fda.gov/Drugs/ResourcesForYou). ??? Visit www.cdc.gov/drugoverdose to learn about the risks of opioids abuse and overdose. ??? If (more content not included)...Michelet Huang [facility] Clinical Summaryon [id number] Clinical SummaryED Clinical Summary [address] [address] ED Clinical Summary Person Information Name: JERAD TRACY/[place] Age: 49 Years : 1975 Sex: Female Language: Malagasy PCP: FLOR JONES Marital Status: Visit Id: Visit Reason: Back pain; LOWER BACK PAIN Speciality: Acuity: 5 Enc Type: Emergency Med Service: Emergency Arrival: 10/13/2024 10:04:07 Discharge: 10/13/2024 10:41:38 LOS: 000 00:37 Checkin: 10/13/2024 10:04:07 Checkout: 10/13/2024 10:41:38 Dispo Type: Home (Routine DC) EVENTS: Event Name Event Status Request Date/Time Start Date/Time Complete Date/Time Arrive Complete 10/13/2024 10:04:07 10/13/2024 10:04:07 10/13/2024 10:04:07 Document Home Meds Request 10/13/2024 10:04:07 Triage Complete 10/13/2024 10:04:07 10/13/2024 10:13:27 10/13/2024 10:13:27 Registration Complete 10/13/2024 10:06:45 10/13/2024 10:06:45 10/13/2024 10:06:45 Reg Complete Request 10/13/2024 10:06:45 Reg Bed Request Complete 10/13/2024 10:06:45 10/13/2024 10:06:45 10/13/2024 10:06:45 Bed Assign Complete 10/13/2024 10:08:04 10/13/2024 10:08:04 10/13/2024 10:08:04 Dr Exam Complete 10/13/2024 10:08:04 10/13/2024 10:10:15 10/13/2024 10:10:15 RN Exam Complete 10/13/2024 10:08:04 10/13/2024 10:15:57 10/13/2024 10:15:57 Registration Request 10/13/2024 10:10:15 Meds Admin Complete 10/13/2024 10:15:19 10/13/2024 10:26:58 Discharge Complete 10/13/2024 10:24:23 10/13/2024 10:41:45 10/13/2024 10:41:45 Transfer Complete 10/13/2024 10:41:45 10/13/2024 10:41:45 10/13/2024 10:41:45 ADDRESS: [facility] [phone] PHYS DOC NOTES: MEDICAL INFORMATION: Prescriptions Given: Medications to Continue with No Changes Other Medications cyclobenzaprine (cyclobenzaprine 10 mg Tab) 1 Tablets By Mouth 3 times a day as needed for spasm. Refills: 1. duloxetine (Cymbalta 60 mg Cap-DR) 1 Capsules By Mouth every day. (do not crush or chew). hydrOXYzine 25 Milligram for 1 Days. ibuprofen (ibuprofen 800 mg Tab) 1 Tablets By Mouth 3 times a day. Refills: 0. lidocaine topical (lidocaine Top 5% film Patch) 1 Patches Topical every day. apply 12 hours on and 12 hours off daily. Refills: 0. omeprazole (omeprazole 40 mg Cap-DR) 1 Capsules By Mouth 2 times a day. Refills: 3. ondansetron (Zofran 4 mg Tab) 1 Tablets By Mouth every 8 hours as needed Nausea/Vomiting. Refills: 1. oxycodone (oxyCODONE 10 mg ER Tab) 1 Tablets By Mouth every 12 hours as needed severe pain. phentermine (Adipex-P 37.5 mg Tab) 1 Tablets By Mouth every day. Refills: 2. spironolactone (spironolactone 25 mg Tab) 1 Tablets By Mouth 2 times a day. Refills: 1. tirzepatide (Zepbound 2.5 mg/0.5 mL subcutaneous solution) 2.5 Milligram Subcutaneous every week. Refills: 3. zolpidem (Ambien 5 mg Tab) 1 Tablets By Mouth once a day (at bedtime) as needed for sleep. Refills:0. PATIENT EDUCATION INFORMATION: Instructions: Managing Chronic Back Pain; Chronic Back Pain Follow up: With: Address: When: KRISTAN LAU In 3 days 10/16/2024 Comments: Make sure to follow-up with your pain management doctor as discussed. Return to the emergency room if your pain gets worse, bowel or bladder incontinence, numbness/tingling in the saddle/groin area or any new symptoms. DIAGNOSIS: 1:Chronic lower back pain; Other chronic painNormalFisher Sal Medical CenterED Note-Physicianon [id number] Note-PhysicianED Note-Physician Basic Information Time Seen: Balbina Bryant M.D. 10/13/2024 10:10 Chief Complaint pt presents after having pain injections pamela a trial for pain into back and awaiting insurance for pain pump. pt verbalized pain to back and was told to come to ER if pain was severe. denies bowel orbladder issues History of Present Illness The patient is a 49-year-old female past medical history of chronic lower back pain who presented to the emergency room with lower back pain. The patient states on she had a spinalinjection and she did well for past few days until today the pain got worse. The patient states this is the same pain on her lower back that got worse today. She denies any bowel or bladder incontinence. The patient denies any saddle paresthesia. She denies any weakness on extremities. The patient denies any fever, denies any chills. The patient states her pain management doctor is trying to put a pain pump and she is waiting for her insurance approval. The patient denies any other associated sy mptoms. Review of Systems Additional ROS info: Except as noted in the above Review of Systems and in the History of Present Illness all other systems have been reviewed and are negative or noncontributory. Physical Exam Vitals & Measurements T: 36.9 ???C(Axillary) HR: 114(Peripheral) RR: 18 BP: 143/71 SpO2: 100% HT: 160 cm WT: 119 kg BMI: 46.48 General: alert, no acute distress Skin: warm, dry Head: no trauma, normocephalic Neck: Trachea midline, no tenderness, supple Eye: normal conjunctiva, sclera clear ENMT: Oral mucosa moist, no pharyngeal erythema or exudate Cardiovascular: Tachycardia Respiratory: Lungs CTA, respirations non labored, breath sounds equal Gastrointestinal: soft, non distended, no tenderness, no guarding Back: Mild generalized tenderness over the lumbosacral, manifest pain with movement of lower back Extremities: no deformity, no trauma Neurological: Alert and oriented, motor strength equal & normal bilaterally, sensation equal & normal bilaterally, speech normal, no focal neuro deficits Psychiatric: cooperative, affect appropriate for age Medical Decision Making MEDICAL DECISION MAKING Number and Complexity of Problems Differential Diagnosis: [] [facility] Data External documents reviewed: [] My EKG interpretation: [] My CT interpretation: [] My X-ray interpretation: [] My Ultrasound interpretation: [] Decision rules/scores evaluated: [] Discussed with: [] Treatment and Disposition ED Course: The patient presented with lower back pain. She does have history of chronic lower back pain. This is the same as her previous back pain. The patient has no signs or symptoms of cauda equina syndrome. She is afebrile. The patient is waiting a pain pump placement. The patient was given morphine in the emergency room. Will discharge patient home follow-up with her pain management. She isinstructed to return to the emergency room if her pain gets worse, bowel or bladder incontinence, saddle paresthesia, weakness in her leg or any new symptoms. Shared decision making: [] Code status: [] Assessment/Plan 1. Chronic lower back pain (M54.50: Low back pain, unspecified) Other chronic pain (G89.29: Other chronic pain) Orders: morphine, 8 mg = 2 mL, Injection, IntraMuscular, Once, Stop date 10/13/24 10:14:00 EDT, STAT, Startdate 10/13/24 10:14:00 EDT, 10/13/24 10:14:00 EDT Disposition Plan Patient Discharge Condition Stable Discharge Disposition Discharge home Discharge Prescription List Prescriptions No active prescription medications Follow-up With When Contact Information KRISTAN LAU In 3 days 10/16/2024 EDT Additional Instructions: Make sure to follow-up with your pain management doctor as discussed. Return to the emergency room if your pain gets worse, bowel or bladder incontinence, numbness/tingling in the saddle/groin area or any new symptoms. Patient Education Managing Chronic Back Pain Chronic Back Pain Problem List/Past Medical History Ongoing Arthritis of first carpometacarpal joint of right hand Bipolar disorder Chronic back pain Chronic hepatitis C Closed fracture of trapezoidal bone of wrist COVID-19 Diarrhea Disease of liver Drug therapy finding Edema Elevated blood pressure reading Encounter for screening mammogram for breast cancer Fatigue Migraine Morbid obesity with BMI of 45.0-49.9, adult Screening for cardiovascular condition Smoker Smoker Tendonitis of right wrist Weight gain Wellness examination Historical Bipolar Continuous opioid dependence Hepatitis C Liver disease Lyme disease Migraines Procedure/Surgical History Hysterectomy (2010), History of cholecystectomy, Hysterectomy, lap x 7, Tonillectomy with adenoids. Medications Inpatient morphine 4 mg/mL Inj, 8 mg= 2 mL, IntraMuscular, Once Home Adipex-P 37.5 mg Tab, 37.5 mg= 1 (more content not included)...[facility] HospitalComment on above:Result Comment: Electronically Signed By: Annette Watkins, Balbina Sparks\.br\Date and Time Signed: 10/13/2509:49 EDTED Patient Summaryon [id number] Patient SummaryED Patient Summary [place] [address] Patient Discharge Instructions Person Information Name: JERAD TRACY Age: 49 Years Arrival Date: 10/13/2024 10:04:07 Discharge Diagnosis: 1:Chronic lower back pain; Other chronic pain Primary Care Physician: FLOR JONES Provider Information Primary Provider: Balbina Bryant M.D. Advanced Dietetic Intern:None The exam and treatment you received in the Emergency Department were for an urgent problem and are not intended as complete care. It is important that you follow up with a doctor, nurse practitioner,or physician???s construction assistant for ongoing care. If your symptoms become worse or you do not improve asexpected and you are unable to reach your usual health care provider, you should return to the Emergency Department. We are available 24 hours a day. JERAD TRACY has been given the following list of patient education materials, prescriptions andfollow-up instructions: Follow-up Instructions: With: Address: When: KRISTAN LAU In 3 days 10/16/2024 Comments: Make sure to follow-up with your pain management doctor as discussed. Return to the emergency room if your pain gets worse, bowel or bladder incontinence, numbness/tingling in the saddle/groin area or any new symptoms. In the event that this physician does not participate in your insurance network, please consult with your insurance company to find a nearby participating provider. Patient Education Materials: Managing Chronic Back Pain; Chronic Back Pain A MESSAGE TO ALL PATIENTS REGARDING OPIOIDS PRESCRIPTION OPIOIDS: WHAT YOU NEED TO KNOW Prescription opioids can be used to help relieve jbqypdod-th-ydcdlx pain and are often prescribed following a [...] guidance from the Food and Drug Administration (www.fda.gov/Drug (more content not included)...[facility] CenterED Note-Physicianon [id number] Note-PhysicianED Note-Physician Basic Information Time Seen: Robert Taylor PA-C 10/06/2024 08:18 Chief Complaint c/o left lower back pain that worsened yesterday, sees pain mgmt supposed to get pain pump History of Present Illness 49-year-old female comes to the ED for evaluation of acute on chronic back pain. She has longstanding history of chronic back pain. She presents today with acute exacerbation over the last 24 hours. No precipitating trauma to the area. She denies any new or unusual symptoms. No acute paresthesias or lower extremity weakness. No bowel or bladder incontinence or retention. No dysuria or hematuria. No associated abdominal pain, nausea, vomiting, fever or chills. Does take narcotics chronically. She is scheduled for upcoming pain pump implantation. Review of Systems A 10 point review of systems is negative except as noted above. Medical and Surgical History: Reviewed and noted Social history: Lives at home Tobacco: Denies Physical Exam Vitals & Measurements T: 36.6 ???C(Oral) HR: 108(Peripheral) RR: 18 BP: 154/93 SpO2: 99% HT: 160 cm WT: 119 kg BMI: 46.48 Nurses notes and vital signs reviewed and patient is not hypoxic. General: The patient appears well, resting comfortably. Skin: Warm, dry. Head: Atraumatic. Neck: No JVD. Eye: Normal conjunctiva. Ears, Nose, Mouth, and Throat: Moist mucous membranes. Cardiovascular: Strong distal pulses. Chest wall: Respiratory: Respirations are nonlabored. Back: Normal range of motion. Musculoskeletal: Normal ROM with no gross deformity. Gastrointestinal: Urological: Neurological: Awake and alert. No focal deficits. Follows commands. Psychiatric: Cooperative. Medical Decision Making Patient presents with acute on chronic back pain. No recent trauma for imaging. She has no evidenceof neurovascular compromise. She is medicated here and is discharged home to follow-up with her PCPand pain management physician. Patient was encouraged to return to the ED if symptoms worsen or change. Assessment/Plan Back pain, chronic (M54.9: Dorsalgia, unspecified) Other chronic pain (G89.29: Other chronic pain) Orders: morphine, 8 mg = 2 mL, Injection, IntraMuscular, Once, Stop date 10/06/24 8:33:00 EDT, STAT, Start date 10/06/24 8:33:00 EDT, 10/06/24 8:33:00 EDT Disposition Plan Patient Discharge Condition Disposition: Discharged home Condition: Improved and stable Counseled: Patient and/or family were counseled to workup, results, treatment plan and follow-up recommendations Discharge Prescription List Prescriptions No active prescription medications Follow-up With When Contact Information KRISTAN LAU In 3 days 10/09/2024 EDT Additional Instructions: Patient Education Chronic Back Pain Attestation I performed a substantive part of the MDM during the patient???s E/M visit. I personally made or approved the documented management plan and acknowledge its risk of complications. (Independent Interpretation) My (EKG/X-Ray/US/CT) interpretation as above. (Discussion) Management/test interpretation discussed with APC. This report was transcribed using voice recognition software. Every effort was made to ensure accuracy, however, inadvertently computerized bill recapitulation clerk mistakes may be present. Appropriate healthcare PPE was used in evaluating this patient. Problem List/Past Medical History Ongoing Arthritis of first carpometacarpal joint of right hand Bipolar disorder Chronic back pain Chronic hepatitis C Closed fracture of trapezoidal bone of wrist COVID-19 Diarrhea Disease of liver Drug therapy finding Edema Elevated blood pressure reading Encounter for screening mammogram for breast cancer Fatigue Migraine Morbid obesity with BMI of 45.0-49.9, adult Screening for cardiovascular condition Smoker Smoker Tendonitis of right wrist Weight gain Wellness examination Historical Bipolar Continuous opioid dependence Hepatitis C Liver disease Lyme disease Migraines Procedure/Surgical History Hysterectomy (2010), History of cholecystectomy, Hysterectomy, lap x 7, Tonillectomy with adenoids. Medications Inpatient morphine 4 mg/mL Inj, 8 mg= 2 mL, IntraMuscular, Once Home Adipex-P 37.5 mg Tab, 37.5 mg= 1 tab(s), Oral, Daily, 2 refills Ambien 5 mg Tab, 5 mg= 1 tab(s), Oral, Once a day (at bedtime), PRN cyclobenzaprine 10 mg Tab, 10 mg= 1 tab(s), Oral, TID, PRN, 1 refills cyclobenzaprine 5 mg Tab, 5 mg= 1 tab(s), Oral, TID Cymbalta 60 mg Cap-DR, 1 cap(s), Oral, Daily hydrOXYzine, 25 mg ibuprofen 800 mg Tab, 800 mg= 1 tab(s), Oral, TID lidocaine Top 5% film Patch, 1 patch(es), Topical, Daily omeprazole 40 mg Cap-DR, 40 mg= 1 cap(s), Oral, BID, 3 refills oxyCODONE 10 mg ER Tab, 10 mg= 1 tab(s), Oral, q12hr, PRN predniSONE 20 mg Tab, 60 mg= 3 tab(s), Oral, Daily spironolactone 25 mg Tab, 25 mg= 1 tab(s), Oral, BID, 1 refills Zepbound 2.5 mg/0.5 mL subcutaneous solution (more content not included)... [facility] HospitalComment on above:Result Comment: Electronically Signed By: Brandon MILES, Robert\.br\Date and Time Signed: 10/07/2507:52 EDT\.br\Electronically Co-Signed By: Jorge Mcnitosh DO\.br\Date and Time Co- Signed: 10/09/24 07:14 EDTFLUORO FOR SURGICAL PROCEDURESon [id number] FOR SURGICAL PROCEDURESRadiology exam is complete. No Radiologist dictation. Please follow up with ordering provider. Final resultNormalMerNorthwest Medical CenterGuidance-- during surgeryon 10-08-2024 Radiology exam is complete. No Radiologist dictation. Please follow up with ordering provider. DEBBIE BROWNE RADIOLOGYED Clinical Summaryon [id number] Clinical SummaryED Clinical Summary [place] [id number] ED Clinical Summary Person Information Name: JERAD TRACY Tasha/[facility] Age: 49 Years : 1975 Sex: Female Language: Malagasy PCP: FLOR JONES Marital Status: Visit Id: Visit Reason: Back pain; BACK PAIN Speciality: Acuity: 4 Enc Type: Emergency Med Service: Emergency Arrival: 10/06/2024 08:10:20 Discharge: 10/06/2024 09:10:08 LOS: 000 01:00 Checkin: 10/06/2024 08:10:20 Checkout: 10/06/2024 09:10:08 Dispo Type: Home (Routine DC) EVENTS: Event Name Event Status Request Date/Time Start Date/Time Complete Date/Time Arrive Complete 10/06/2024 08:10:20 10/06/2024 08:10:20 10/06/2024 08:10:20 Document Home Meds Request 10/06/2024 08:10:20 Triage Complete 10/06/2024 08:10:20 10/06/2024 08:17:39 10/06/2024 08:17:39 Bed Assign Complete 10/06/2024 08:12:47 10/06/2024 08:12:47 10/06/2024 08:12:47 Dr Exam Complete 10/06/2024 08:12:47 10/06/2024 08:18:38 10/06/2024 08:18:38 RN Exam Complete 10/06/2024 08:12:47 10/06/2024 08:19:24 10/06/2024 08:19:24 Registration Complete 10/06/2024 08:18:38 10/06/2024 08:19:33 10/06/2024 08:19:33 Dr Exam Complete 10/06/2024 08:18:56 10/06/2024 08:18:56 10/06/2024 08:18:56 Reg Complete Request 10/06/2024 08:19:33 Reg Bed Request Complete 10/06/2024 08:19:33 10/06/2024 08:19:33 10/06/2024 08:19:33 Meds Admin Complete 10/06/2024 08:33:35 10/06/2024 08:38:30 Discharge Complete 10/06/2024 08:33:46 10/06/2024 09:10:19 10/06/2024 09:10:19 Transfer Complete 10/06/2024 09:10:19 10/06/2024 09:10:19 10/06/2024 09:10:19 ADDRESS: [address] [facility] [phone] PHYS DOC NOTES: MEDICAL INFORMATION: Prescriptions Given: Medications to Continue with No Changes Other Medications cyclobenzaprine (cyclobenzaprine 10 mg Tab) 1 Tablets By Mouth 3 times a day as needed for spasm. Refills: 1. cyclobenzaprine (cyclobenzaprine 5 mg Tab) 1 Tablets By Mouth 3 times a day for 7 Days. Refills: 0. duloxetine (Cymbalta 60 mg Cap-DR) 1 Capsules By Mouth every day. (do not crush or chew). hydrOXYzine 25 Milligram for 1 Days. ibuprofen (ibuprofen 800 mg Tab) 1 Tablets By Mouth 3 times a day. Refills: 0. lidocaine topical (lidocaine Top 5% film Patch) 1 Patches Topical every day. apply 12 hours on and 12 hours off daily. Refills: 0. omeprazole (omeprazole 40 mg Cap-DR) 1 Capsules By Mouth 2 times a day. Refills: 3. ondansetron (Zofran 4 mg Tab) 1 Tablets By Mouth every 8 hours as needed Nausea/Vomiting. Refills: 1. oxycodone (oxyCODONE 10 mg ER Tab) 1 Tablets By Mouth every 12 hours as needed severe pain. phentermine (Adipex-P 37.5 mg Tab) 1 Tablets By Mouth every day. Refills: 2. spironolactone (spironolactone 25 mg Tab) 1 Tablets By Mouth 2 times a day. Refills: 1. tirzepatide (Zepbound 2.5 mg/0.5 mL subcutaneous solution) 2.5 Milligram Subcutaneous every week. Refills: 3. zolpidem (Ambien 5 mg Tab) 1 Tablets By Mouth once a day (at bedtime) as needed for sleep. Refills:0. PATIENT EDUCATION INFORMATION: Instructions: Chronic Back Pain Follow up: With: Address: When: KRISATN LAU In 3 days 10/09/2024 DIAGNOSIS: Back pain, chronic; Other chronic painNormOhio State Harding Hospital Patient Summaryon [id number] Patient SummaryED Patient Summary [place] [address] Patient Discharge Instructions Person Information Name: JERAD TRACY Age: 49 Years Arrival Date: 10/06/2024 08:10:20 Discharge Diagnosis: Back pain, chronic; Other chronic pain Primary Care Physician: FLOR JONES Provider Information Primary Provider: Jorge Mcintosh DO Advanced Dietetic Intern:Robert Taylor PA-C The exam and treatment you received in the Emergency Department were for an urgent problem and are not intended as complete care. It is important that you follow up with a doctor, nurse practitioner,or physician???s construction assistant for ongoing care. If your symptoms become worse or you do not improve asexpected and you are unable to reach your usual health care provider, you should return to the Emergency Department. We are available 24 hours a day. JERAD TRACY has been given the following list of patient education materials, prescriptions andfollow-up instructions: Follow-up Instructions: With: Address: When: KRISTAN LAU In 3 days 10/09/2024 In the event that this physician does not participate in your insurance network, please consult with your insurance company to find a nearby participating provider. Patient Education Materials: Chronic Back Pain A MESSAGE TO ALL PATIENTS REGARDING OPIOIDS PRESCRIPTION OPIOIDS: WHAT YOU NEED TO KNOW Prescription opioids can be used to help relieve fyhogywf-lf-fqwgtt pain and are often prescribed following a [...] guidance from the Food and Drug Administration (www.fda.gov/Drugs/ResourcesForYou). ??? Visit www.cdc.gov/drugoverdose to learn about the risks of opioids abuse and overdose. ??? If you believe you may be struggling with addiction, tell your health childcare aide and askfor guidance or call [facility]???S National (more content not included)...[facility] Clinical Summaryon [id number] Clinical SummaryED Clinical Summary [place] [id number] ED Clinical Summary Person Information Name: JERAD TRACY Tasha/[facility] Age: 49 Years : 1975 Sex: Female Language: Malagasy PCP: FLOR JONES Marital Status: Visit Id: Visit Reason: Back pain; BACK PAIN Speciality: Acuity: 4 Enc Type: Emergency Med Service: Emergency Arrival: 10/04/2024 09:56:48 Discharge: 10/04/2024 11:01:04 LOS: 000 01:05 Checkin: 10/04/2024 09:56:48 Checkout: 10/04/2024 11:01:04 Dispo Type: Home (Routine DC) EVENTS: Event Name Event Status Request Date/Time Start Date/Time Complete Date/Time Arrive Complete 10/04/2024 09:56:48 10/04/2024 09:56:48 10/04/2024 09:56:48 Document Home Meds Request 10/04/2024 09:56:48 Triage Complete 10/04/2024 09:56:48 10/04/2024 10:03:08 10/04/2024 10:03:08 Dr Exam Complete 10/04/2024 09:57:52 10/04/2024 09:57:52 10/04/2024 09:57:52 Registration Complete 10/04/2024 09:57:52 10/04/2024 09:58:21 10/04/2024 09:59:01 Bed Assign Complete 10/04/2024 09:58:21 10/04/2024 09:58:21 10/04/2024 09:58:21 RN Exam Request 10/04/2024 09:58:21 Reg Complete Request 10/04/2024 09:59:01 Reg Bed Request Complete 10/04/2024 10:00:17 10/04/2024 10:00:17 10/04/2024 10:00:17 Discharge Complete 10/04/2024 10:22:34 10/04/2024 11:01:12 10/04/2024 11:01:12 Meds Admin Complete 10/04/2024 10:24:17 10/04/2024 10:32:42 Transfer Complete 10/04/2024 11:01:12 10/04/2024 11:01:12 10/04/2024 11:01:12 ADDRESS: [address] [place] [id number] [facility] DOC NOTES: MEDICAL INFORMATION: Prescriptions Given: Medications to Continue with No Changes Other Medications cyclobenzaprine (cyclobenzaprine 10 mg Tab) 1 Tablets By Mouth 3 times a day as needed for spasm. Refills: 1. cyclobenzaprine (cyclobenzaprine 5 mg Tab) 1 Tablets By Mouth 3 times a day for 7 Days. Refills: 0. duloxetine (Cymbalta 60 mg Cap-DR) 1 Capsules By Mouth every day. (do not crush or chew). hydrOXYzine 25 Milligram for 1 Days. ibuprofen (ibuprofen 800 mg Tab) 1 Tablets By Mouth 3 times a day. Refills: 0. lidocaine topical (lidocaine Top 5% film Patch) 1 Patches Topical every day. apply 12 hours on and 12 hours off daily. Refills: 0. omeprazole (omeprazole 40 mg Cap-DR) 1 Capsules By Mouth 2 times a day. Refills: 3. ondansetron (Zofran 4 mg Tab) 1 Tablets By Mouth every 8 hours as needed Nausea/Vomiting. Refills: 1. oxycodone (oxyCODONE 10 mg ER Tab) 1 Tablets By Mouth every 12 hours as needed severe pain. phentermine (Adipex-P 37.5 mg Tab) 1 Tablets By Mouth every day. Refills: 2. predniSONE (predniSONE 20 mg Tab) 3 Tablets By Mouth every day for 5 Days. Refills: 0. spironolactone (spironolactone 25 mg Tab) 1 Tablets By Mouth 2 times a day. Refills: 1. tirzepatide (Zepbound 2.5 mg/0.5 mL subcutaneous solution) 2.5 Milligram Subcutaneous every week. Refills: 3. zolpidem (Ambien 5 mg Tab) 1 Tablets By Mouth once a day (at bedtime) as needed for sleep. Refills:0. PATIENT EDUCATION INFORMATION: Instructions: Chronic Back Pain Follow up: With: Address: When: KRISTAN LAU In 3 days 10/07/2024 Comments: Call the office of your primary [...] or any new or worsening symptoms. DIAGNOSIS: Back painNormalFisher Sal Medical CenterED Note-Physicianon [id number] Note-PhysicianED Note-Physician Basic Information Time Seen: Manuel Naik PA-C 10/01/2024 08:33 Chief Complaint pt presents with c/o chronic back pain. c/o L side back pain History of Present Illness Patient is a 49-year-old female that presents today for evaluation of her acute on chronic back pain. Patient states that this most recent episodes been going on over the last 24 to 48 hours. She states that it is left-sided in nature as it always is. She does note some radicular symptoms into the left lower extremity. Denies any saddle anesthesia, loss of bowel or bladder control, or lower extremity weakness. She states that she is scheduled to get a pain pump on 10/06/2024 with her pain management doctor. Review of Systems No other aggravating or relieving factors no other associated symptoms no other prior treatments orcomplaints. Family: Reviewed and noncontributory Social: lives at home Review of systems negative unless otherwise specified in the HPI. Physical Exam Vitals & Measurements T: 36.6 ???C(Oral) HR: 111(Peripheral) RR: 20 BP: 161/93 SpO2: 99% HT: 160 cm WT: 126 kg BMI: 49.22 Vital Signs reviewed and noted. General: Alert, no acute distress, patient resting comfortably Skin: warm, intact, no pallor noted Head: Normocephalic, atraumatic Eye: Normal conjunctiva Cardiac: Normal peripheral perfusion Respiratory: No acute distress Musculoskeletal: No deformity, full ROM. Lumbar spine: Left-sided lumbar spinal tenderness. Negative straight leg raise. No step-off or crepitus appreciated. Intact strength and sensation to bilateral lower extremities. DPP 2+ bilaterally. Neurological: alert and oriented, normal sensory and motor observed. Psychiatric: Cooperative Medical Decision Making Patient is a 49-year-old female presents today for evaluation of acute on chronic back pain. Most recent episode started over the last 24 to 48 hours. Denies signs or symptoms concerning for cauda equina syndrome. She is awaiting a pain pump on 10/06/2024 with her pain management doctor per the patient. On exam patient is afebrile and nontoxic-appearing. Left-sided lumbar spinal tenderness. Intactstrength and sensation of bilateral lower extremities. Neurovascular intact distally. Patient is having an acute flareup of chronic back pain and therefore we will provide her with a dose of. She is already on narcotics at home and will continue with these. Patient is requesting Flexeril and prednisone in addition for pain relief and therefore was given a short course of each. She will be discharged home with close follow-up with her PCP and pain management doctor. We discussed if she has new or worsening symptoms she should promptly return to the ED for reevaluation. Return to ED precautions were reviewed with the patient at length. Assessment/Plan Acute on chronic low back pain (M54.50: Low back pain, unspecified) Lumbar radiculopathy (M54.16: Radiculopathy, lumbar region) Other chronic pain (G89.29: Other chronic pain) Orders: cyclobenzaprine, 5 mg = 1 tab(s), Oral, TID, X 7 day(s), # 21 tab(s), Refills(s) 0, Pharmacy: [facility], 160, cm, 10/01/24 8:36:00 EDT, Height/Length Dosing, 126, kg, 10/01/24 8:36:00 EDT, Weight Dosing morphine, 4 mg = 1 mL, Injection, IntraMuscular, Once, Stop date 10/01/24 8:54:00 EDT, STAT, Start date 10/01/24 8:54:00 EDT, 10/01/24 8:54:00 EDT predniSONE, 60 mg = 3 tab(s), Oral, Daily, X 5 day(s), # 15 tab(s), Refills(s) 0, Pharmacy: [facility], 160, cm, 10/01/24 8:36:00 EDT, Height/Length Dosing, 126, kg, 10/01/24 8:36:00 EDT, Weight Dosing Medications Administered Given morphine 4 mg/mL Inj, 4 mg, IntraMuscular Disposition Plan Patient Discharge Condition Stable Discharge Disposition Home Discharge Prescription List Prescriptions cyclobenzaprine 5 mg Tab, 5 mg= 1 tab(s), Oral, TID predniSONE 20 mg Tab, 60 mg= 3 tab(s), Oral, Daily Follow-up With When Contact Information [facility] In 3 days 10/04/2024 EDT [address] [place] [address]- [phone] Business (1) Additional Instructions: KRISTAN LAU In 3 days Additional Instructions: Patient Education Managing Chronic Back Pain Chronic Back Pain Attestation Patient seen and evaluated by the physician construction assistant. Attending physician was present in the emergency department and supervised care. This visit was performed by both the physician and an APC. I performed all aspects of the MDM as documented. This report was transcribed using voice recognition software. Every effort was made to ensure accuracy, however, inadvertently computerized bill recapitulation clerk mistakes may be present. Appropriate healthcare PPE was used in evaluating this patient. The healthcare provider was wearinggloves, and utilizing proper hand hygiene. All equipment was properly cleansed. I performed a substantive part of the MDM during the patient???s E/M visit. I personally made or approved the documented management pl (more content not included)...[facility] HospitalComment on above:Result Comment: Electronically Signed By: Manuel Naik PA-C\.br\Date and Time Signed: 10/01/2508:29 EDT\.br\Electronically Co-Signed By: Cameron Rene DO.br\Date and Time Co-Signed: 10/04/24 17:10 EDTED Note-PhysicianED Note-Physician Basic Information Time Seen: Nikhil Tubbs DO 10/04/2024 09:57 Chief Complaint patient to ER c/o chronic lower back pain that she states has been worse since yesterday. Pt statesshe is due to have pain pump placed on 10/08. History of Present Illness 49-year-old female to the emergency department with chief complaint of back pain. She has a historyof chronic lower back pain. She reports pain is severe. She is requesting a shot of pain medication. She has a pain pump being placed in 3 days. If this fails she will have surgery. She is currently under the care of pain management and neurosurgeon. If this fails she will have surgery. She is currently under the care of pain management neurosurgeon. No falls or injuries. No bowel bladder incontinence or retention. Review of Systems A 10 point review of systems is negative except as noted above. Medical and Surgical History: Reviewed and noted Social history: Lives at home Tobacco: Denies Physical Exam Vitals & Measurements T: 36.6 ???C(Oral) HR: 100(Peripheral) RR: 20 BP: 157/91 SpO2: 98% HT: 160 cm WT: 126 kg BMI: 49.22 VITALS: I have reviewed the triage vital [...] No JVD. Patient moves neck without restriction. EXTREMITIES: Symmetric muscle bulk. No joint swelling. No clubbing, cyanosis, or deformity. SKIN: Warm and dry. Normal turgor. No rash or lesions appreciated. PSYCH: Mood, affect, and interaction is appropriate to the setting. Medical Decision Making IM shot of pain medication for relief of symptoms. She will follow-up with her care team. Return precautions were discussed. All questions were answered. Patient was discharged home. Assessment/Plan Back pain (M54.9: Dorsalgia, unspecified) Orders: HYDROmorphone, 1 mg = 1 mL, Injection, IntraMuscular, Once, Stop date 10/04/24 10:23:00 EDT, STAT, Start date 10/04/24 10:23:00 EDT, 10/04/24 10:23:00 EDT Disposition Plan Patient Discharge Condition Stable Discharge Disposition Home Discharge Prescription List Prescriptions No active prescription medications Follow-up With When Contact Information KRISTAN LAU In 3 days 10/07/2024 EDT Additional Instructions: Call the office of your [...] Diarrhea Disease of liver Drug therapy finding Edema Elevated blood pressure reading Encounter for screening mammogram for breast cancer Fatigue Migraine Morbid obesity with BMI of 45.0-49.9, adult Screening for cardiovascular condition Smoker Smoker Tendonitis of right wrist Weight gain Wellness examination Historical Bipolar Continuous opioid dependence Hepatitis C Liver disease Lyme disease Migraines Procedure/Surgical History Hysterectomy (2010), History of cholecystectomy, Hysterectomy, lap x 7, Tonillectomy with adenoids. Medications Inpatient HYDROmorphone 1 mg/mL injectable solution, 1 mg= 1 mL, IntraMuscular, Once Home Adipex-P 37.5 mg Tab, 37.5 mg= 1 tab(s), Oral, Daily, 2 refills Ambien 5 mg Tab, 5 mg= 1 tab(s), Oral, Once a day (at bedtime), PRN cyclobenzaprine 10 mg Tab, 10 mg= 1 tab(s), Oral, TID, PRN, 1 refills cyclobenzaprine 5 mg Tab, 5 mg= 1 tab(s), Ora (more content not included)... [facility] HospitalComment on above:Result Comment: Electronically Signed By: Nikhil Tubbs DO.rufino\Date and Time Signed: 10/04/24 10:27 EDTED Patient Summaryon [id number] Patient SummaryED Patient Summary [place] [id number] Patient Discharge Instructions Person Information Name: JERAD TRACY Age: 49 Years Arrival Date: 10/04/2024 09:56:48 Discharge Diagnosis: Back pain Primary Care Physician: FLOR JONES Provider Information Primary Provider: Nikhil Tubbs DO Advanced Dietetic Intern:None The exam and treatment you received in the Emergency Department were for an urgent problem and are not intended as complete care. It is important that you follow up with a doctor, nurse practitioner,or physician???s construction assistant for ongoing care. If your symptoms become worse or you do not improve asexpected and you are unable to reach your usual health care provider, you should return to the Emergency Department. We are available 24 hours a day. JERAD TRACY has been given the following list of patient education materials, prescriptions andfollow-up instructions: Follow-up Instructions: With: Address: When: KRISTAN LAU In 3 days 10/07/2024 Comments: Call the office of your primary [...] opioids can be used to help relieve pfimgczl-ga-ilfvmp pain and are often prescribed following a [...] your pain that don???t involve prescription opioids. (more contentnot included)...[facility] CenterED Clinical Summaryon [id number] Clinical Summary [id number] [place] [address] ED Clinical Summary Person Information Name: Jerad Tracy/Wei_Jalen Age: 49 Years : 1975 Sex: Female PCP: Marital Status: Phone: Race: White Ethnicity: Not or Language: Malagasy Visit Reason: Back pain; back pain Acuity: 4 Enc Type: Emergency Med Service: Emergency Medicine Arrival: 10/02/2024 14:14:21 Discharge: 10/02/2024 18:08:00 LOS: 000 03:54 Checkin: 10/02/2024 14:14:21 Checkout: 10/02/2024 18:08:00 Dispo Type: Home or Self Care Address: [address] [place] [phone] Provider Notes: Diagnosis: 1:Acute on chronic back pain Problems Active Hep C w/ coma, chronic Smoking Status: Smoking Status 5-9 cigarettes (between 1/4 to 1/2 pack)/day in last 30 days Functional Status: Sensory Deficits: History of Falls: Mobility Assistance Prior to Admission: ADLs: Current Level of Assistance for Self-Care/Mobility: Cognitive Status: Allergies HYDROcodone (hives) penicillin (hives) gabapentin (Migraines) acetaminophen containing compounds (Liver failure) Lyrica (Edema) Laboratory or Other Results This Visit (last charted value for your 10/02/2024 visit) No Laboratory or Other Results This Visit Measurements: Height: Weight: 118.4 kg Blood Pressure: /98 mmHg BMI: Procedures No Procedures Documented Immunizations No Immunizations Documented This Visit Final Med List: Medications That Were Updated - Follow Current Instructions [id number], [address] [place], [place] [id number], [phone] Current methylPREDNISolone (Medrol Dosepak 4 mg oral tablet) 1 Packets Oral (given by mouth) As Indicated for 6 Days. as directed on package labeling. Refills: 0. Last Dose: Other Medications Current methylPREDNISolone (Medrol Dosepak 4 mg oral tablet) 1 Packets Oral (given by mouth) As Indicated for 6 Days. as directed on package labeling. Refills: 0. Last Dose: Medications that have not changed Other Medications dicyclomine (Bentyl 10 mg oral capsule) 1 Capsules Oral (given by mouth) 3 times a day as needed abdominal spasms for 7 Days. Refills: 0. Last Dose: esomeprazole (NexIUM 20 mg oral delayed release capsule) 1 Capsules Oral (given by mouth) every day. Last Dose: ondansetron (Zofran 4 mg oral tablet) 1 Tabs Oral (given by mouth) every 8 hours as needed as needed for nausea/vomiting. Refills: 0. Last Dose: [facility], [address], [place] [phone], [phone] methylPREDNISolone (Medrol Dosepak 4 mg oral tablet) 1 Packets Oral (given by mouth) As Indicated for 6 Days. as directed on package labeling. Refills: 0. Other Medications dicyclomine (Bentyl 10 mg oral [...] Refills: 0. Care Team Members: Attending Physician: Consulting Physician: Referring Physician: Provider Role Assigned Unassigned Otto MILES, Vivek Villegas ED MidLevel 10/02/2024 17:36:49 Follow up: With: Address: When: Follow-up with your pain specialist for further evaluation. Return for any new or worsening symptoms. Discharge Orders: Discharge Patient 10/02/24 17:58:00 EDT, Discharge to Home, Self Patient Education Information: BACK PAIN (Acute or Chronic) [facility] Poison Help line: . [facility] Hotline: [place] Tobacco Quit Line: [facility] ([place], [place]) [address]: [phone] [facility] ([place], [place]) [address]: [phone] [facility] [address] [place], [place]: [phone] CenterED Note-Physicianon [id number] Note-Physician Chief Complaint Pt to er for chronic back pain History of Present Illness Patient is a 49 years old female presenting to the ER for low back pain that has been going on since yesterday. Of note patient does have a history of chronic back pain and has had 3 surgeries to [facility]. Patient does have a bulging disc at the L4-L5 and L5-S1 level. Patient is due to get a pain pump 6 days from now. Patient does see chronic pain specialist and currently on oxycodone, and 800 mg of ibuprofen at home. Patient has been taking those without relief. She is from [place] and just visiting here in [place]. She had come here prior for similar flares and was given IM Dilaudid, and IM Toradol with significant improvement. She denies any bowel or bladder dysfunction. She does have numbness to the left lower leg which is at baseline. No other related concerns. Next Review of Systems As reviewed in the HPI. All other systems reviewed are negative or normal. Physical Exam CONSTITUTIONAL: [well appearing in moderate distress] SKIN: [Warm, dry, and intact without rash] EYES: [extraocular movements are grossly intact, clear conjunctiva] HENT: [Normocephalic, atraumatic, moist mucus membranes] NECK: [no obvious swelling, normal range of motion] NEUROLOGIC: [normal speech, moves all extremities] MUSCULOSKELETAL: [Pain with palpation to the midline of the lumbar region. No overlying skin changes. Range of motion of the back does appear to be limited due to discomfort.] PSYCHIATRIC: [normal mood and affect] Vitals & Measurements T: 37 ?C (Oral) HR: 103 (Peripheral) RR: 18 BP: 167/ 98SpO2: 98% HT: 160 cm WT: 118.4 kg (Dosing) Additional Vitals No qualifying data available. Medical Decision Making ED Course & MDMED Course & MDM Patient Presentation: Patient is a 49 years old female presenting to the ER for low back pain that has been going on since yesterday. DIFFERENTIAL DIAGNOSIS: (In no particular order and not limited to following) Acute on chronic back flare, cauda equina syndrome less likely, low back strain, UTI, kidney stone Data and analysis: Patient otherwise appears to be stable and in moderate amount of distress. Physical exam was positive for pain with palpation to the midline of the lumbar region. Range of motion was limited. No overlying skin changes. Given patient noted history I do not believe additional imaging is warranted at this time. I will treat symptomatically and discharge home to follow-up with pain specialist. She isdue to have a pain pump in the next 6 days. Patient knows to come back if there is any new or worsening symptoms. Independent History: None Independent Clinician: None Labs/Imaging Reviewed: I have independently visualized and interpreted images/labs pertinent positives and negatives as follows: None Review of Past Medical/External records: Previous DC Summaries/Clinic Notes/Testing Reviewed if available. Notable Findings in MDM section above. Therapeutics Provided: IM Toradol, IM Dilaudid PULSE OX INTERPRETATION: Oxygen saturation is 98%, which is normal. Social Determinant of Health: ED Course/Progress Note: Procedures: Assessment/Plan 1. Acute on chronic back pain Orders: methylPREDNISolone, 1 packets, Oral, As Indicated, as directed on package labeling, X 6 days, # 21 tabs, 0 Refill(s), 10/08/24 17:58:00 EDT, Pharmacy: [id number] Discharge Patient Refresh vitals and sections below: Problem List/Past Medical History Ongoing Hep C w/ coma, chronic Historical No qualifying data Medications Inpatient No active inpatient medications Home Bentyl 10 mg oral capsule, 10 mg= 1 caps, Oral, TID, PRN, Not taking Medrol Dosepak 4 mg oral tablet, 1 packets, Oral, As Indicated, as directed on package labeling, Not taking Medrol Dosepak 4 mg oral tablet, 1 packets, Oral, As Indicated, as directed on package labeling NexIUM 20 mg oral delayed release capsule, 20 mg= 1 caps, Oral, Daily Zofran 4 mg oral tablet, 4 mg= 1 tabs, Oral, q8hr, PRN, Not taking Allergies penicillin (hives) Lyrica (Edema) acetaminophen containing compounds (Liver failure) gabapentin (Migraines) HYDROcodone (hives) Social History Alcohol Never Substance Abuse Denies All Tobacco 10 or more cigarettes (1/2 pack or more)/day in last 30 days Use:. Diagnostic Results Electronically signed by Vivek Menjivar PA-C 10/02/24 23:49 EDTNoWestern [facility] HospitalED Clinical Summaryon [id number] Clinical SummaryED Clinical Summary [place] [address] ED Clinical Summary Person Information Name: JERAD TRACY/[facility] Age: 49 Years : 1975 Sex: Female Language: Malagasy PCP: FLOR JONES Marital Status: Visit Id: Visit Reason: Back pain; LOWER BACK PAIN Speciality: Acuity: 4 Enc Type: Emergency Med Service: Emergency Arrival: 10/01/2024 08:29:46 Discharge: 10/01/2024 09:01:42 LOS: 000 00:32 Checkin: 10/01/2024 08:29:46 Checkout: 10/01/2024 09:01:42 Dispo Type: Home (Routine DC) EVENTS: Event Name Event Status Request Date/Time Start Date/Time Complete Date/Time Arrive Complete 10/01/2024 08:29:46 10/01/2024 08:29:46 10/01/2024 08:29:46 Document Home Meds Request 10/01/2024 08:29:46 Triage Complete 10/01/2024 08:29:46 10/01/2024 08:36:50 10/01/2024 08:36:50 Bed Assign Complete 10/01/2024 08:30:52 10/01/2024 08:30:52 10/01/2024 08:30:52 Dr Exam Complete 10/01/2024 08:30:52 10/01/2024 08:33:32 10/01/2024 08:33:32 RN Exam Complete 10/01/2024 08:30:52 10/01/2024 08:37:58 10/01/2024 08:37:58 Registration Complete 10/01/2024 08:33:32 10/01/2024 08:40:46 10/01/2024 08:40:46 Reg Complete Request 10/01/2024 08:40:46 Reg Bed Request Complete 10/01/2024 08:40:46 10/01/2024 08:40:46 10/01/2024 08:40:46 Meds Admin Complete 10/01/2024 08:55:11 10/01/2024 08:57:26 Discharge Complete 10/01/2024 08:58:47 10/01/2024 09:01:49 10/01/2024 09:01:49 Transfer Complete 10/01/2024 09:01:49 10/01/2024 09:01:49 10/01/2024 09:01:49 ADDRESS: [address] [place] [phone] PHYS DOC NOTES: MEDICAL INFORMATION: Prescriptions Given: New Medications [facility], [address], [place] [id number], [phone] predniSONE (predniSONE 20 mg Tab) 3 Tablets By Mouth every day for 5 Days. Refills: 0. Medications to Continue Taking That Have Changed [facility] [address], [place] [id number], [phone] START: cyclobenzaprine (cyclobenzaprine 5 mg Tab) 1 Tablets By Mouth 3 times a day for 7 Days. Refills: 0. Other Medications START: cyclobenzaprine (cyclobenzaprine 10 mg Tab) 1 Tablets By Mouth 3 times a day as needed for spasm. Refills: 1. Medications to Continue with No Changes Other Medications duloxetine (Cymbalta 60 mg Cap-DR) 1 Capsules By Mouth every day. (do not crush or chew). hydrOXYzine 25 Milligram for 1 Days. ibuprofen (ibuprofen 800 mg Tab) 1 Tablets By Mouth 3 times a day. Refills: 0. lidocaine topical (lidocaine Top 5% film Patch) 1 Patches Topical every day. apply 12 hours on and 12 hours off daily. Refills: 0. omeprazole (omeprazole 40 mg Cap-DR) 1 Capsules By Mouth 2 times a day. Refills: 3. ondansetron (Zofran 4 mg Tab) 1 Tablets By Mouth every 8 hours as needed Nausea/Vomiting. Refills: 1. oxycodone (oxyCODONE 10 mg ER Tab) 1 Tablets By Mouth every 12 hours as needed severe pain. phentermine (Adipex-P 37.5 mg Tab) 1 Tablets By Mouth every day. Refills: 2. spironolactone (spironolactone 25 mg Tab) 1 Tablets By Mouth 2 times a day. Refills: 1. tirzepatide (Zepbound 2.5 mg/0.5 mL subcutaneous solution) 2.5 Milligram Subcutaneous every week. Refills: 3. zolpidem (Ambien 5 mg Tab) 1 Tablets By Mouth once a day (at bedtime) as needed for sleep. Refills:0. PATIENT EDUCATION INFORMATION: Instructions: Managing Chronic Back Pain; Chronic Back Pain Follow up: With: Address: When: [facility] [address] [place] [phone] Business (1) In 3 days 10/04/2024 With: Address: When: KRISTAN LAU In 3 days DIAGNOSIS: Acute on chronic low back pain; Lumbar radiculopathy; Other chronic painNormal [facility] Patient Summaryon [id number] Patient SummaryED Patient Summary [address] [address] Patient Discharge Instructions Person Information Name: JERAD TRACY Age: 49 Years Arrival Date: 10/01/2024 08:29:46 Discharge Diagnosis: Acute on chronic low back pain; Lumbar radiculopathy; Other chronic pain Primary Care Physician: FLOR JONES Provider Information Primary Provider: Advanced Dietetic Intern:Manuel Naik PA-C The exam and treatment you received in the Emergency Department were for an urgent problem and are not intended as complete care. It is important that you follow up with a doctor, nurse practitioner,or physician???s construction assistant for ongoing care. If your symptoms become worse or you do not improve asexpected and you are unable to reach your usual health care provider, you should return to the Emergency Department. We are available 24 hours a day. JERAD TRACY has been given the following list of patient education materials, prescriptions andfollow-up instructions: Follow-up Instructions: With: Address: When: [facility] [address] [place] [address] [phone] Business (1) In 3 days 10/04/2024 With: Address: When: KRISTAN LAU In 3 days In the event that this physician does not participate in your insurance network, please consult with your insurance company to find a nearby participating provider. Patient Education Materials: Managing Chronic Back Pain; Chronic Back Pain A MESSAGE TO ALL PATIENTS REGARDING OPIOIDS PRESCRIPTION OPIOIDS: WHAT YOU NEED TO KNOW Prescription opioids can be used to help relieve nlwvivwc-qp-brkalv pain and are often prescribed following a [...] guidance from the Food and Drug Administration (www.fda.gov/Drugs/ResourcesForYou). ??? Visit www.cdc.gov/drugoverdose to learn about the risks of opioids ab (more content not included)...[facility] CenterED Prov Noteon [id number] Prov NoteED PROVIDER NOTE [facility] NAME: Jerad Tracy AGE: 49 y.o. : 1975 VISIT DATE: 10/01/2024 CSN: [id number] PCP: No, Physician Chief Complaint Patient presents with Back Pain 49-year-old female presents ER for acute on chronic low back pain, patient suffers from chronic radiculopathy, states her pain has been worsening over the last few days, no fevers chills, denies any IV drug use, no saddle anesthesia Past Medical History: Diagnosis Date Back pain Bulging lumbar disc L4-L5; SEVERE NARROWING OF L5-S1 Depression Past Surgical History: Procedure Laterality Date BACK SURGERY BUNIONECTOMY Bilateral 2022 CHOLECYSTECTOMY HYSTERECTOMY TONSILLECTOMY AND ADENOIDECTOMY TYMPANOSTOMY TUBE PLACEMENT History reviewed. No pertinent family history. Social [...] by mouth daily for 6 days . Allergies[2] Review of Systems All other systems reviewed and are negative. Patient Vitals for the past 24 hrs: BP Temp Temp src Pulse Resp SpO2 Height Weight 10/01/242054 (!) 139/95 97.8 degrees F (36.6 degrees C) Temporal (!) 112 18 99 % 5' 3 117.9 kg (260 lb) [...] range of motion and neck supple. Comments: Paravertebral lumbar tenderness Pulmonary: Effort: Pulmonary effort is normal. Breath [...] No results found for this visit on 10/01/24. No orders to display Procedures Medical Decision [...] packs/day: 0.50 Average packs/day: 0.5 packs/day for 30.8 years (15.4 ttl pk-yrs) Types: Cigarettes Start date: 12/28/1993 Smokeless tobacco: Never Vaping Use Vaping status: Never Used Substance and Sexual Activity Alcohol use: Never Drug use: Never Social Drivers of Health Financial Resource Strain: Low Risk (06/12/2024) Received from [facility] Overall Financial Resource Strain (CARDIA) Difficulty of Paying Living Expenses: Not hard at all Food Insecurity: No Food Insecurity (06/12/2024) Received from [facility] Hunger Vital Sign Worried About Running Out of Food in the Last Year: Never true Ran Out of Food in the Last Year: Never true Transportation Needs: No Transportation Needs ( (more content not included)... [facility] CenterED Prov Noteon [id number] Prov NoteED PROVIDER NOTE [facility] NAME: Jerad Tracy AGE: 49 y.o. : 1975 VISIT DATE: 09/27/2024 CSN: [id number] PCP: No, Physician Chief Complaint Patient presents [...] -- -- -- 09/27/24 1025 -- 97.9 degrees F (36.6 degrees C) Temporal (!) 109 18 97 % 5' [...] Disposition ED Disposition Discharge Condition Stable Comment Jerad Tracy discharged to home/self care in stable condition. Follow-up Information 1. Loretta Mayo MD. Specialty: Family Medicine Why: As needed, If symptoms worsen [address] [address] 2. Elvira (more content not included)...[facility]Grant [facility] CenterED Clinical Summaryon [id number] Clinical SummaryED Clinical Summary [address] [address] ED Clinical Summary Person Information Name: JERAD TRACY Tasha/[facility] Age: 49 Years : 1975 Sex: Female Language: Malagasy PCP: FLOR JONES Marital Status: Visit Id: Visit Reason: Back pain; lower back pain Speciality: Acuity: 4 Enc Type: Emergency Med Service: Emergency Arrival: 09/26/2024 14:01:57 Discharge: 09/26/2024 16:17:28 LOS: 000 02:16 Checkin: 09/26/2024 14:01:57 Checkout: 09/26/2024 16:17:28 Dispo Type: Home (Routine DC) EVENTS: Event Name Event Status Request Date/Time Start Date/Time Complete Date/Time Arrive Complete 09/26/2024 14:01:57 09/26/2024 14:01:57 09/26/2024 14:01:57 Document Home Meds Request 09/26/2024 14:01:57 Triage Complete 09/26/2024 14:01:57 09/26/2024 14:11:20 09/26/2024 14:11:20 Bed Assign Complete 09/26/2024 14:06:19 09/26/2024 14:06:19 09/26/2024 14:06:19 Dr Exam Complete 09/26/2024 14:06:19 09/26/2024 14:08:16 09/26/2024 14:08:16 RN Exam Complete 09/26/2024 14:06:19 09/26/2024 14:12:50 09/26/2024 14:12:50 Registration Complete 09/26/2024 14:07:27 09/26/2024 14:07:27 09/26/2024 14:07:27 Reg Complete Request 09/26/2024 14:07:27 Reg Bed Request Complete 09/26/2024 14:07:27 09/26/2024 14:07:27 09/26/2024 14:07:27 Registration Request 09/26/2024 14:08:16 Dr Exam Complete 09/26/2024 14:08:46 09/26/2024 14:08:46 09/26/2024 14:08:46 RN Exam Start 09/26/2024 14:15:08 09/26/2024 14:15:08 Meds Admin Complete 09/26/2024 15:44:15 09/26/2024 15:50:58 Discharge Complete 09/26/2024 15:46:25 09/26/2024 16:17:32 09/26/2024 16:17:32 Transfer Complete 09/26/2024 16:17:32 09/26/2024 16:17:32 09/26/2024 16:17:32 ADDRESS: [address] [place] [id number] PHYS DOC NOTES: MEDICAL INFORMATION: Prescriptions Given: Medications to Continue with No Changes Other Medications cyclobenzaprine (cyclobenzaprine 10 mg Tab) 1 Tablets By Mouth 3 times a day as needed for spasm. Refills: 1. duloxetine (Cymbalta 60 mg Cap-DR) 1 Capsules By Mouth every day. (do not crush or chew). hydrOXYzine 25 Milligram for 1 Days. ibuprofen (ibuprofen 800 mg Tab) 1 Tablets By Mouth 3 times a day. Refills: 0. lidocaine topical (lidocaine Top 5% film Patch) 1 Patches Topical every day. apply 12 hours on and 12 hours off daily. Refills: 0. omeprazole (omeprazole 40 mg Cap-DR) 1 Capsules By Mouth 2 times a day. Refills: 3. ondansetron (Zofran 4 mg Tab) 1 Tablets By Mouth every 8 hours as needed Nausea/Vomiting. Refills: 1. oxycodone (oxyCODONE 10 mg ER Tab) 1 Tablets By Mouth every 12 hours as needed severe pain. phentermine (Adipex-P 37.5 mg Tab) 1 Tablets By Mouth every day. Refills: 2. spironolactone (spironolactone 25 mg Tab) 1 Tablets By Mouth 2 times a day. Refills: 1. tirzepatide (Zepbound 2.5 mg/0.5 mL subcutaneous solution) 2.5 Milligram Subcutaneous every week. Refills: 3. zolpidem (Ambien 5 mg Tab) 1 Tablets By Mouth once a day (at bedtime) as needed for sleep. Refills:0. PATIENT EDUCATION INFORMATION: Instructions: Chronic Back Pain Follow up: With: Address: When: KRISTAN TURNERCECY In 3 days 09/29/2024 DIAGNOSIS: Back pain, chronic; Other chronic painNormalFisher Pollock Medical CenterED Note-Physicianon [id number] Note-PhysicianED Note-Physician Basic Information Time Seen: Robert Taylor PA-C 09/26/2024 14:08 Chief Complaint pt to ER c/o chronic lower back pain. pt reports sitting in a car for an extensive amount of time yesterday, denies new injury. pt states pain pump to be placed on 10/08. History of Present Illness 49-year-old female comes to the ED for evaluation of back pain. Longstanding history of chronic back pain, currently scheduled for upcoming pain pump implantation. She presents today with an exacerbation of her chronic pain. She reports that today's pain is normal for her. No new or unusual symptoms. She has had no precipitating trauma. Believes this from sitting in a car for a prolonged amount of time yesterday traveling for the holiday. No associated paresthesias or saddle anesthesia. No lower extremity weakness. No bowel or bladder incontinence or retention. No dysuria or hematuria. No associated abdominal pain, nausea, vomiting, fever or chills. Review of Systems A 10 point review of systems is negative except as noted above. Medical and Surgical History: Reviewed and noted Social history: Lives at home Tobacco: Denies Physical Exam Vitals & Measurements T: 36.6 ???C(Oral) HR: 99(Peripheral) RR: 18 BP: 158/96 SpO2: 98% HT: 160 cm WT: 126 kg BMI: 49.22 Nurses notes and vital signs reviewed and patient is not hypoxic. General: The patient appears well, resting comfortably. Skin: Warm, dry. Head: Atraumatic. Neck: No JVD. Eye: Normal conjunctiva. Ears, Nose, Mouth, and Throat: Moist mucous membranes. Cardiovascular: Strong distal pulses. Chest wall: Respiratory: Respirations are nonlabored. Back: Normal range of motion. Musculoskeletal: Normal ROM with no gross deformity. Gastrointestinal: Urological: Neurological: Awake and alert. No focal deficits. Follows commands. Psychiatric: Cooperative. Medical Decision Making Patient with acute on chronic back pain. She is on chronic narcotic therapy at home. She has no evidence of neurovascular compromise. No trauma for imaging. She is medicated here discharged home withPCP follow-up. Patient was encouraged to return to the ED if symptoms worsen or change. Assessment/Plan Back pain, chronic (M54.9: Dorsalgia, unspecified) Other chronic pain (G89.29: Other chronic pain) Orders: morphine, 8 mg = 2 mL, Injection, IntraMuscular, Once, Stop date 09/26/24 15:43:00 EDT, STAT, Startdate 09/26/24 15:43:00 EDT, 09/26/24 15:43:00 EDT Disposition Plan Patient Discharge Condition Disposition: Discharged home Condition: Improved and stable Counseled: Patient and/or family were counseled to workup, results, treatment plan and follow-up recommendations Discharge Prescription List Prescriptions No active prescription medications Follow-up With When Contact Information KRISTAN LAU In 3 days 09/29/2024 EDT Additional Instructions: Patient Education Chronic Back Pain Attestation I performed a substantive part of the MDM during the patient???s E/M visit. I personally made or approved the documented management plan and acknowledge its risk of complications. (Independent Interpretation) My (EKG/X-Ray/US/CT) interpretation as above. (Discussion) Management/test interpretation discussed with APC. This report was transcribed using voice recognition software. Every effort was made to ensure accuracy, however, inadvertently computerized bill recapitulation clerk mistakes may be present. Appropriate healthcare PPE was used in evaluating this patient. Problem List/Past Medical History Ongoing Arthritis of first carpometacarpal joint of right hand Bipolar disorder Chronic back pain Chronic hepatitis C Closed fracture of trapezoidal bone of wrist COVID-19 Diarrhea Disease of liver Drug therapy finding Edema Elevated blood pressure reading Encounter for screening mammogram for breast cancer Fatigue Migraine Morbid obesity with BMI of 45.0-49.9, adult Screening for cardiovascular condition Smoker Smoker Tendonitis of right wrist Weight gain Wellness examination Historical Bipolar Continuous opioid dependence Hepatitis C Liver disease Lyme disease Migraines Procedure/Surgical History Hysterectomy (2010), History of cholecystectomy, Hysterectomy, lap x 7, Tonillectomy with adenoids. Medications Inpatient morphine 4 mg/mL Inj, 8 mg= 2 mL, IntraMuscular, Once Home Adipex-P 37.5 mg Tab, 37.5 mg= 1 tab(s), Oral, Daily, 2 refills Ambien 5 mg Tab, 5 mg= 1 tab(s), Oral, Once a day (at bedtime), PRN cyclobenzaprine 10 mg Tab, 10 mg= 1 tab(s), Oral, TID, PRN, 1 refills Cymbalta 60 mg Cap-DR, 1 cap(s), Oral, Daily hydrOXYzine, 25 mg ibuprofen 800 mg Tab, 800 mg= 1 tab(s), Oral, TID lidocaine Top 5% film Patch, 1 patch(es), Topical, Daily omeprazole 40 mg Cap-DR, 40 mg= 1 cap(s), Oral, BID, 3 refills oxyCODONE 10 mg ER Tab, 10 mg= 1 tab(s), Oral, q12hr, PRN spironolactone 25 mg Tab, 25 mg= 1 tab(s), Oral, BID, (more content not included)...[facility] HospitalComment on above:Result Comment: Electronically Signed By: Robert Taylor PA-C\.br\Date and Time Signed: 09/26/2514:48 EDT\.br\Electronically Co-Signed By: Nikhil Tubbs DO\.br\Date and Time Co-Signed: 09/26/2516:09 EDTED Patient Summaryon [id number] Patient SummaryED Patient Summary [place] [id number] Patient Discharge Instructions Person Information Name: JERAD TRACY Age: 49 Years Arrival Date: 09/26/2024 14:01:57 Discharge Diagnosis: Back pain, chronic; Other chronic pain Primary Care Physician: FLOR JONES Provider Information Primary Provider: Nikhil Tubbs DO Advanced Dietetic Intern:Robert Taylor PA-C The exam and treatment you received in the Emergency Department were for an urgent problem and are not intended as complete care. It is important that you follow up with a doctor, nurse practitioner,or physician???s construction assistant for ongoing care. If your symptoms become worse or you do not improve asexpected and you are unable to reach your usual health care provider, you should return to the Emergency Department. We are available 24 hours a day. JERAD TRACY has been given the following list of patient education materials, prescriptions andfollow-up instructions: Follow-up Instructions: With: Address: When: KRISTAN LAU In 3 days 09/29/2024 In the event that this physician does not participate in your insurance network, please consult with your insurance company to find a nearby participating provider. Patient Education Materials: Chronic Back Pain A MESSAGE TO ALL PATIENTS REGARDING OPIOIDS PRESCRIPTION OPIOIDS: WHAT YOU NEED TO KNOW Prescription opioids can be used to help relieve nzargukg-ag-wbsfbp pain and are often prescribed following a [...] guidance from the Food and Drug Administration (www.fda.gov/Drugs/ResourcesForYou). ??? Visit www.cdc.gov/drugoverdose to learn about the risks of opioids abuse and overdose. ??? If you believe you may be struggling with addiction, tell your health childcare aide and askfor guidance or call [facility]S National (more content not included)...[facility]er [facility] Medical CenterED Note-Physicianon [id number] Note-PhysicianED Note-Physician Basic Information Time Seen: Brandon MILESRobert 09/21/2024 10:50 Chief Complaint Pt states lower back pain flare. History of Present Illness 49-year-old female comes to the ED for evaluation of back pain. Longstanding history of chronic back pain. She is scheduled upcoming pain pump insertion. She presents today with acute on chronic painthat she attributes to recent changes in the weather. She has had no trauma. No associated paresthesias or saddle anesthesia. No lower extremity weakness. No bowel or bladder incontinence or retention. No dysuria or hematuria. No associated abdominal pain, nausea, vomiting, fever or chills. Review of Systems A 10 point review of systems is negative except as noted above. Medical and Surgical History: Reviewed and noted Social history: Lives at home Tobacco: Denies Physical Exam Vitals & Measurements T: 36.8 ???C(Oral) HR: 100(Peripheral) RR: 16 BP: 133/97 SpO2: 98% HT: 160 cm WT: 126 kg BMI: 49.22 Nurses notes and vital signs reviewed and patient is not hypoxic. General: The patient appears well, resting comfortably. Skin: Warm, dry. Head: Atraumatic. Neck: No JVD. Eye: Normal conjunctiva. Ears, Nose, Mouth, and Throat: Moist mucous membranes. Cardiovascular: Strong distal pulses. Chest wall: Respiratory: Respirations are nonlabored. Back: Normal range of motion. Musculoskeletal: Normal ROM with no gross deformity. Gastrointestinal: Urological: Neurological: Awake and alert. No focal deficits. Follows commands. Psychiatric: Cooperative. Medical Decision Making Patient presents acute on chronic back pain. Up and amatory that difficulty. No evidence of vascular compromise. No acute weakness or paresthesias. She is medicated here for pain and discharged home to follow-up with her PCP and pain management physician. Patient was encouraged to return to the ED if symptoms worsen or change. Assessment/Plan Back pain, chronic (M54.9: Dorsalgia, unspecified) Other chronic pain (G89.29: Other chronic pain) Orders: morphine, 8 mg = 2 mL, Injection, IntraMuscular, Once, Stop date 09/21/24 11:42:00 EDT, STAT, Startdate 09/21/24 11:42:00 EDT, 09/21/24 11:42:00 EDT Medications Administered Given morphine 4 mg/mL Inj, 8 mg, IntraMuscular Disposition Plan Patient Discharge Condition Disposition: Discharged home Condition: Improved and stable Counseled: Patient and/or family were counseled to workup, results, treatment plan and follow-up recommendations Discharge Prescription List Prescriptions No active prescription medications Follow-up With When Contact Information KRISTAN LAU In 3 days 09/24/2024 EDT [address] [place] [address] Business (1) Additional Instructions: Patient Education Chronic Back Pain Attestation I performed a substantive part of the MDM during the patient???s E/M visit. I personally made or approved the documented management plan and acknowledge its risk of complications. (Independent Interpretation) My (EKG/X-Ray/US/CT) interpretation as above. (Discussion) Management/test interpretation discussed with APC. This report was transcribed using voice recognition software. Every effort was made to ensure accuracy, however, inadvertently computerized bill recapitulation clerk mistakes may be present. Appropriate healthcare PPE was used in evaluating this patient. Problem List/Past Medical History Ongoing Arthritis of first carpometacarpal joint of right hand Bipolar disorder Chronic back pain Chronic hepatitis C Closed fracture of trapezoidal bone of wrist COVID-19 Diarrhea Disease of liver Drug therapy finding Edema Elevated blood pressure reading Encounter for screening mammogram for breast cancer Fatigue Migraine Morbid obesity with BMI of 45.0-49.9, adult Screening for cardiovascular condition Smoker Smoker Tendonitis of right wrist Weight gain Wellness examination Historical Bipolar Continuous opioid dependence Hepatitis C Liver disease Lyme disease Migraines Procedure/Surgical History Hysterectomy (2010), History of cholecystectomy, Hysterectomy, lap x 7, Tonillectomy with adenoids. Medications Inpatient No active inpatient medications Home Adipex-P 37.5 mg Tab, 37.5 mg= 1 tab(s), Oral, Daily, 2 refills Ambien 5 mg Tab, 5 mg= 1 tab(s), Oral, Once a day (at bedtime), PRN cyclobenzaprine 10 mg Tab, 10 mg= 1 tab(s), Oral, TID, PRN, 1 refills Cymbalta 60 mg Cap-DR, 1 cap(s), Oral, Daily hydrOXYzine, 25 mg ibuprofen 800 mg Tab, 800 mg= 1 tab(s), Oral, TID lidocaine Top 5% film Patch, 1 patch(es), Topical, Daily omeprazole 40 mg Cap-DR, 40 mg= 1 cap(s), Oral, BID, 3 refills oxyCODONE 10 mg ER Tab, 10 mg= 1 tab(s), Oral, q12hr, PRN spironolactone 25 mg Tab, 25 mg= 1 tab(s), Oral, BID, 1 refills Zepbound 2.5 mg/0.5 mL subcutaneous solution, 2.5 mg, SubCutaneous, qWeek, 3 refills Zofran 4 mg Tab, 4 mg= 1 tab(s), Oral (more content not included)...[facility] HospitalComment on above:Result Comment: Electronically Signed By: Robert Taylor PA-C\.br\Date and Time Signed: 09/22/2511:00 EDT\.br\Electronically Co-Signed By: Jorge Mcintosh DO\.br\Date and Time Co- Signed: 09/22/24 07:06 EDTED Clinical Summaryon [id number] Clinical SummaryED Clinical Summary [place] [id number] ED Clinical Summary Person Information Name: JERAD TRACY Tasha/[facility] Age: 49 Years : 1975 Sex: Female Language: Malagasy PCP: FLOR JONES Marital Status: Visit Id: Visit Reason: Back pain; LOWER BACK PAIN Speciality: Acuity: 4 Enc Type: Emergency Med Service: Emergency Arrival: 09/21/2024 10:38:58 Discharge: 09/21/2024 12:07:16 LOS: 000 01:29 Checkin: 09/21/2024 10:38:58 Checkout: 09/21/2024 12:07:16 Dispo Type: Home (Routine DC) EVENTS: Event Name Event Status Request Date/Time Start Date/Time Complete Date/Time Arrive Complete 09/21/2024 10:38:58 09/21/2024 10:38:58 09/21/2024 10:38:58 Document Home Meds Request 09/21/2024 10:38:58 Triage Complete 09/21/2024 10:38:58 09/21/2024 10:51:31 09/21/2024 10:51:31 Registration Complete 09/21/2024 10:41:41 09/21/2024 10:41:41 09/21/2024 10:41:41 Reg Complete Request 09/21/2024 10:41:41 Reg Bed Request Complete 09/21/2024 10:41:41 09/21/2024 10:41:41 09/21/2024 10:41:41 Bed Assign Complete 09/21/2024 10:48:18 09/21/2024 10:48:18 09/21/2024 10:48:18 Dr Exam Complete 09/21/2024 10:48:18 09/21/2024 10:50:39 09/21/2024 10:50:39 RN Exam Complete 09/21/2024 10:48:18 09/21/2024 10:54:52 09/21/2024 10:54:52 Registration Request 09/21/2024 10:50:39 Dr Exam Complete 09/21/2024 10:51:03 09/21/2024 10:51:03 09/21/2024 10:51:03 Meds Admin Complete 09/21/2024 11:42:57 09/21/2024 11:55:04 Discharge Complete 09/21/2024 11:48:18 09/21/2024 12:07:30 09/21/2024 12:07:30 Transfer Complete 09/21/2024 12:07:30 09/21/2024 12:07:30 09/21/2024 12:07:30 ADDRESS: [address] [place], [place] [address]Jazmine [facility] [phone] PHYS DOC NOTES: MEDICAL INFORMATION: Prescriptions Given: Medications to Continue with No Changes Other Medications cyclobenzaprine (cyclobenzaprine 10 mg Tab) 1 Tablets By Mouth 3 times a day as needed for spasm. Refills: 1. duloxetine (Cymbalta 60 mg Cap-DR) 1 Capsules By Mouth every day. (do not crush or chew). hydrOXYzine 25 Milligram for 1 Days. ibuprofen (ibuprofen 800 mg Tab) 1 Tablets By Mouth 3 times a day. Refills: 0. lidocaine topical (lidocaine Top 5% film Patch) 1 Patches Topical every day. apply 12 hours on and 12 hours off daily. Refills: 0. omeprazole (omeprazole 40 mg Cap-DR) 1 Capsules By Mouth 2 times a day. Refills: 3. ondansetron (Zofran 4 mg Tab) 1 Tablets By Mouth every 8 hours as needed Nausea/Vomiting. Refills: 1. oxycodone (oxyCODONE 10 mg ER Tab) 1 Tablets By Mouth every 12 hours as needed severe pain. phentermine (Adipex-P 37.5 mg Tab) 1 Tablets By Mouth every day. Refills: 2. spironolactone (spironolactone 25 mg Tab) 1 Tablets By Mouth 2 times a day. Refills: 1. tirzepatide (Zepbound 2.5 mg/0.5 mL subcutaneous solution) 2.5 Milligram Subcutaneous every week. Refills: 3. zolpidem (Ambien 5 mg Tab) 1 Tablets By Mouth once a day (at bedtime) as needed for sleep. Refills:0. PATIENT EDUCATION INFORMATION: Instructions: Chronic Back Pain Follow up: With: Address: When: KRISTAN LAU [address] [place] [address] Business (1) In 3 days 09/24/2024 DIAGNOSIS: Back pain, chronic; Other chronic painNormOhio State Harding Hospital Patient Summaryon [id number] Patient SummaryED Patient Summary [address] [address] Patient Discharge Instructions Person Information Name: JERAD TRACY Age: 49 Years Arrival Date: 09/21/2024 10:38:58 Discharge Diagnosis: Back pain, chronic; Other chronic pain Primary Care Physician: FLOR JONES Provider Information Primary Provider: Jorge Mcintosh DO Advanced Dietetic Intern:Robert Taylor PA-C The exam and treatment you received in the Emergency Department were for an urgent problem and are not intended as complete care. It is important that you follow up with a doctor, nurse practitioner,or physician???s construction assistant for ongoing care. If your symptoms become worse or you do not improve asexpected and you are unable to reach your usual health care provider, you should return to the Emergency Department. We are available 24 hours a day. JERAD TRACY has been given the following list of patient education materials, prescriptions andfollow-up instructions: Follow-up Instructions: With: Address: When: KRISTAN LAU [address] [place] [address] Business (1) In 3 days 09/24/2024 In the event that this physician does not participate in your insurance network, please consult with your insurance company to find a nearby participating provider. Patient Education Materials: Chronic Back Pain A MESSAGE TO ALL PATIENTS REGARDING OPIOIDS PRESCRIPTION OPIOIDS: WHAT YOU NEED TO KNOW Prescription opioids can be used to help relieve vkxhiryp-zp-gsalum pain and are often prescribed following a [...] guidance from the Food and Drug Administration (www.fda.gov/Drugs/ResourcesForYou). ??? Visit www.cdc.gov/drugoverdose to learn about the risks of opioids abuse and overdose. ??? If you believe you may be struggling with addiction, tell your health (more content not included)...[facility] Medical CenterED Prov Noteon [id number] Prov NoteED PROVIDER NOTE [facility] NAME: Jerad Tracy AGE: 49 y.o. : 1975 VISIT DATE: 09/17/2024 CSN: [id number] PCP: No, Physician Chief Complaint Patient presents [...] Height Weight 09/17/24 1736 (!) 120/109 97.2 degrees F (36.2 degrees C) Temporal (!) 114 (!) 20 100 % [...] Resource Strain: Low Risk (06/12/2024) Received from [facility] Overall Financial Resource Strain (CARDIA) Difficulty of Paying Living Expenses: Not hard at all Food Insecurity: No Food Insecurity (06/12/2024) Received from [facility] Hunger Vital Sign Worried About Running Out of Food in the Last Year: Never true Ran Out of Food in the Last Year: Never true Transportation Needs: No Transportation Needs (06/12/2024) Received from [facility] PRAPARE - Transportation Lack of Transportation (Medical): No Lack of Transportation (Non-Medical): No Physical Activity: Inactive (06/12/2024) Received from [facility] Exercise Vital Sign Day (more content not included)...[facility] conon [id number] lumbar spine wo [facility] [place] [address] [place], [place] [id number] CT Scan Report Signed Patient: Jerad Tracy MR#: [id number] 49 : 1975 Acct:[id number] Age/Sex: 49 / F ADM Date: 09/15/24 Loc: ER Room: Type: [facility] ER Attending Dr: Copies to: Deb Carmichael APRN Ordering Provider: Deb Carmichael APRN Date of Service: 09/15/24 CT/CT lumbar spine wo con: increased pain CT lumbar spine wo con 09/15/2024 8:56 PM History:Left-sided lower back pain TECHNIQUE: Multi detector CT axial [...] or use of iterative reconstruction technique. COMPARISON: CT lumbar spine 10/16/2022 FINDINGS: No evidence of acute fracture or malalignment. Moderate severe intervertebral space narrowing L4-5 and moderate intervertebral disc narrowing at L5-S1. There is moderate severe facet arthropathy L4- S1. Interval postsurgical changes in left at L4-5. Otherwise, there is moderate severe foraminal narrowing L4-S1. CT/CT lumbar spine wo con IMPRESSION: No acute bony abnormality or malalignment. Interval postsurgical changes in left at L4-5. Otherwise moderate severe degenerative changes L4- S1. Impression dictated by: Jr Greene M.D. 09/15/2024 9:32 PM Dictation Location: [place] [address] Transcribed By: [facility] 09/15/242131 Dictated By: Jr Greene MD 09/15/242125 Signed By: 09/15/242131[facility] Physician GroupUrinalysis with Reflex to Cultureon [id number] Test strip (U) [Mass/Vol]NegativeNegative mg/dLBon Secours University Hospitals Tri[facility] Medical Centery HealthKetones (U) [Mass/Vol]NegativeNegative mg/dLBon Secours University Hospitals [facility] Centery HealthProtein (U) [Mass/Vol]NegativeNegative mg/dLBon [facility]ours [facility] Health Urine Reflex to CultureNot IndicatedBon [facility] HealthUrobilinogen Qn (U) 0.2NINFBon Secours University Hospitals [facility] Medical Centery HealthBon Secours [facility] Centery HealthUrinalysis, reflex to cultureon [id number] Ql (U)NegativeNormalNegativeBon Secours [facility] HospitalComment on above:Performed By: #### UAR #### [facility] [address] [place] [address] Xmqsses (U)SLCLOUDYNormalClearBon SecBethesda North HospitalComment on above:Performed By: #### UAR #### [facility] [address] [place] [address] [place] [address] Ijfih (U)YellowNormalStraw/YellBon SecBethesda North HospitalComment on above:Performed By: #### UAR #### [facility] [address] [place] [address] Srcwlye Ql (U)NegativeNormalNegativeMerAdirondack Medical Center on above:Performed By: #### UAR #### [facility] [address] [place] [place] [address] Oftayapgwc Ql (U)NegativeNormalNegativeBon SecBethesda North Hospital Comment on above:Performed By: #### UAR #### [facility] [address] [place] [place] [address] Vjkcvus Ql (U)NegativeNormalNegativeMercy La Paz Regional HospitalCommclaren northern [place] on above:Performed By: #### UAR #### [facility] [address] [place] [place] [address] Uxermsvav esterase Test strip Ql (U)NegativeNormalNegativeBon SecBethesda North HospitalComment on above:Performed By: #### UAR #### [facility] [address] [place] [address] Thbiblt Ql (U)NegativeNormalNegativeBon [facility] on above:Performed By: #### UAR #### [facility] [address] [place] [address] yP (U)8.5 [pH]Normal5.0-9.0Bon [facility] on above: Performed By: #### UAR #### [facility] [address] [place] [address] Zdmlqgb Ql (U)NegativeNormalNegativeWhite HospitalCommclaren northern [place] on above:Performed By: #### UAR #### [facility] [address] [place] [address] Mvfhpzxh gravity (U) [Rel density]1.315Mpcmns1.005-1.03Bon [facility] on above:Performed By: #### UAR #### [facility] [address] [place] [address] Vjwfb Reflexed to CultureNot IndicatedNoAultman Hospital Comment on above:Performed By: #### UAR #### [facility] [address] [place] [address] Vimetrqucvqj Qn (U)0.2 {Jan'U}/dLNormal< 2.0[facility] Comment on above:Performed By: #### UAR #### [facility] [address] [place] [address] VB LUMBAR SPINE (2-3 VIEWS)on [id number] LUMBAR SPINE (2-3 VIEWS) EXAMINATION: XRAY VIEWS OF THE LUMBAR SPINE [...] narrowing. IMPRESSION: Mild L4-L5 disc space narrowing. Interpreted by: Arnoldo Shah MD Signed by: Arnoldo Shah MD 09/14/24 Final resultNormWilson Memorial HospitalXR Lumbar spine 2 or 3 Viewson 09-14-2024 Mild L4-L5 disc space narrowing. [facility]OW[facility] RADIOLOGYEXAMINATION: XRAY VIEWS OF THE LUMBAR SPINE 09/14/2024 5:18 pm COMPARISON: None. HISTORY: ORDERING SYSTEM PROVIDED HISTORY: low back pain TECHNOLOGIST PROVIDED HISTORY: Reason for exam:->low back pain What reading provider will be dictating this exam?->CRC FINDINGS: Lumbar vertebral bodies are normal in height and alignment. No evidence of fracture. Visualized sacrum is unremarkable. Mild L4-L5 disc space narrowing. [facility] Arnoldo Corley MD - 09/14/2024 EXAMINATION: XRAY VIEWS OF [...] narrowing. IMPRESSION: Mild L4-L5 disc space narrowing. [facility] HealthRad[facility] Study observation (narrative)[facility] CenterXR Lumbar spine 2 or 3 ViewsOrdered By: Arnoldo Shah on [id number] hovelstay Work Phone: ED Clinical Summaryon [id number] Clinical SummaryED Clinical Summary [place] [address] ED Clinical Summary Person Information Name: JERAD TRACY [place] Age: 49 Years : 1975 Sex: Female Language: Malagasy PCP: FLOR JONES Marital Status: Visit Id: Visit Reason: Back pain; LOWER BACK PAIN Speciality: Acuity: 4 Enc Type: Emergency Med Service: Emergency Arrival: 09/13/2024 12:32:24 Discharge: 09/13/2024 13:37:24 LOS: 000 01:05 Checkin: 09/13/2024 12:32:24 Checkout: 09/13/2024 13:37:24 Dispo Type: Home (Routine DC) EVENTS: Event Name Event Status Request Date/Time Start Date/Time Complete Date/Time Arrive Complete 09/13/2024 12:32:24 09/13/2024 12:32:24 09/13/2024 12:32:24 Document Home Meds Request 09/13/2024 12:32:24 Triage Complete 09/13/2024 12:32:24 09/13/2024 12:42:35 09/13/2024 12:42:35 Bed Assign Complete 09/13/2024 12:38:02 09/13/2024 12:38:02 09/13/2024 12:38:02 Dr Exam Complete 09/13/2024 12:38:02 09/13/2024 12:40:18 09/13/2024 12:40:18 RN Exam Complete 09/13/2024 12:38:02 09/13/2024 13:13:38 09/13/2024 13:13:38 Registration Complete 09/13/2024 12:38:16 09/13/2024 12:38:16 09/13/2024 12:38:16 Reg Complete Request 09/13/2024 12:38:16 Reg Bed Request Complete 09/13/2024 12:38:16 09/13/2024 12:38:16 09/13/2024 12:38:16 Registration Request 09/13/2024 12:40:18 Meds Admin Complete 09/13/2024 13:29:35 09/13/2024 13:35:54 Discharge Complete 09/13/2024 13:29:47 09/13/2024 13:37:29 09/13/2024 13:37:29 Transfer Complete 09/13/2024 13:37:29 09/13/2024 13:37:29 09/13/2024 13:37:29 ADDRESS: [address] [place] [phone] PHYS DOC NOTES: MEDICAL INFORMATION: Prescriptions Given: Medications to Continue with No Changes Other Medications cyclobenzaprine (cyclobenzaprine 10 mg Tab) 1 Tablets By Mouth 3 times a day as needed for spasm. Refills: 1. duloxetine (Cymbalta 60 mg Cap-DR) 1 Capsules By Mouth every day. (do not crush or chew). hydrOXYzine 25 Milligram for 1 Days. ibuprofen (ibuprofen 800 mg Tab) 1 Tablets By Mouth 3 times a day. Refills: 0. lidocaine topical (lidocaine Top 5% film Patch) 1 Patches Topical every day. apply 12 hours on and 12 hours off daily. Refills: 0. omeprazole (omeprazole 40 mg Cap-DR) 1 Capsules By Mouth 2 times a day. Refills: 3. ondansetron (Zofran 4 mg Tab) 1 Tablets By Mouth every 8 hours as needed Nausea/Vomiting. Refills: 1. oxycodone (oxyCODONE 10 mg ER Tab) 1 Tablets By Mouth every 12 hours as needed severe pain. phentermine (Adipex-P 37.5 mg Tab) 1 Tablets By Mouth every day. Refills: 2. spironolactone (spironolactone 25 mg Tab) 1 Tablets By Mouth 2 times a day. Refills: 1. tirzepatide (Zepbound 2.5 mg/0.5 mL subcutaneous solution) 2.5 Milligram Subcutaneous every week. Refills: 3. zolpidem (Ambien 5 mg Tab) 1 Tablets By Mouth once a day (at bedtime) as needed for sleep. Refills:0. PATIENT EDUCATION INFORMATION: Instructions: Acute Back Pain, Adult Follow up: With: Address: When: KRISTAN LAU In 3 days 09/16/2024 Comments: Call the office of your primary [...] symptoms. DIAGNOSIS: Chronic back pain; Other chronic painNormKalyanier Sal Medical CenterED Note-Nursingon [id number] Note-NursingED Note-Nursing pt [facility]ician on [id number] Note-PhysicianED Note-Physician Basic Information Time Seen: Nikhil Tubbs DOAdrien 09/13/2024 12:40 Chief Complaint pt to ER c/o chronic lower back pain that she states is worse today. pt does report a fall on Saturday d/t slipping on wet grass. History of Present Illness 49-year-old female to the emergency department chief complaint of low back pain. Patient has a history of chronic back pain. She has difficulty controlling the pain and is currently scheduled to get a pain pump installed. She reports that she had a slip on Saturday and twisted. She has had increasing pain since. She was requesting a shot of pain medication to get her pain level down and discharge. She denies any numbness, weakness, tingling. No bowel bladder incontinence or retention. Review of Systems A 10 point review of systems is negative except as noted above. Medical and Surgical History: Reviewed and noted Social history: Lives at home Tobacco: Denies Physical Exam Vitals & Measurements T: 36.7 ???C(Oral) HR: 91(Peripheral) RR: 18 BP: 150/68 SpO2: 98% HT: 160 cm WT: 126 kg BMI: 49.22 VITALS: I have reviewed the triage vital [...] No JVD. Patient moves neck without restriction. GI/: Abdomen is soft and non-tender. Normoactive bowel sounds. EXTREMITIES: Symmetric muscle bulk. No joint swelling. No clubbing, cyanosis, or deformity. SKIN: Warm and dry. Normal turgor. No rash or lesions appreciated. PSYCH: Mood, affect, and interaction is appropriate to the setting. Medical Decision Making 49-year-old female well-known to this department with chronic back pain. She had slip and fall causing acute on chronic back pain. No red flags for cord compressing lesion. Her exam is unremarkable. She is given an injection of IM pain medication and will be discharged home. She will follow-up withher pain management doctor. Return precautions were discussed. All questions were answered. The patient was discharged home. Assessment/Plan Chronic back pain (M54.9: Dorsalgia, unspecified) Other chronic pain (G89.29: Other chronic pain) Orders: HYDROmorphone, 1 mg = 1 mL, Injection, IntraMuscular, Once, Stop date 09/13/24 13:29:00 EDT, STAT, Start date 09/13/24 13:29:00 EDT, 09/13/24 13:29:00 EDT Medications Administered Given HYDROmorphone 1 mg/mL injectable solution, 1 mg, IntraMuscular Disposition Plan Patient Discharge Condition Stable Discharge Disposition Home Discharge Prescription List Prescriptions No active prescription medications Follow-up With When Contact Information KRISTAN LAU In 3 days 09/16/2024 EDT Additional Instructions: Call the office of your [...] any new or worsening symptoms. Patient Education Acute Back Pain, Adult Problem List/Past Medical History Ongoing Arthritis of first carpometacarpal joint of right hand Bipolar disorder Chronic back pain Chronic hepatitis C Closed fracture of trapezoidal bone of wrist COVID-19 Diarrhea Disease of liver Drug therapy finding Edema Elevated blood pressure reading Encounter for screening mammogram for breast cancer Fatigue Migraine Morbid obesity with BMI of 45.0-49.9, adult Screening for cardiovascular condition Smoker Smoker Tendonitis of right wrist Weight gain Wellness examination Historical Bipolar Continuous opioid dependence Hepatitis C Liver disease Lyme disease Migraines Procedure/Surgical History Hysterectomy (2010), History of cholecystectomy, Hysterectomy, lap x 7, Tonillectomy with adenoids. Medications Inpatient No active inpatient medications Home Adipex-P 37.5 mg Tab, 37.5 mg= 1 tab(s), Oral, Daily, 2 refills Ambien 5 mg Tab, 5 mg= 1 tab(s), Oral, Once a day (at bedtime), PRN cyclobenzaprine 10 mg Tab, 10 mg= 1 tab(s), Oral, TID, PRN, 1 refills Cymbalta 60 mg Cap-DR, 1 cap(s), O (more content not included)...[facility] HospitalComment on above:Result Comment: Electronically Signed By: Nikhil Tubbs DO\.br\Date and Time Signed: 09/13/24 21:56 EDTED Patient Summaryon [id number] Patient SummaryED Patient Summary [place] [id number] Patient Discharge Instructions Person Information Name: JERAD TRACY Age: 49 Years Arrival Date: 09/13/2024 12:32:24 Discharge Diagnosis: Chronic back pain; Other chronic pain Primary Care Physician: FLOR JONES Provider Information Primary Provider: Nikhil Tubbs DO Advanced Dietetic Intern:None The exam and treatment you received in the Emergency Department were for an urgent problem and are not intended as complete care. It is important that you follow up with a doctor, nurse practitioner,or physician???s construction assistant for ongoing care. If your symptoms become worse or you do not improve asexpected and you are unable to reach your usual health care provider, you should return to the Emergency Department. We are available 24 hours a day. JERAD TRACY has been given the following list of patient education materials, prescriptions andfollow-up instructions: Follow-up Instructions: With: Address: When: KRISTAN LAU In 3 days 09/16/2024 Comments: Call the office of your primary [...] opioids can be used to help relieve pnjvltku-aa-gobiir pain and are often prescribed following a [...] ways to help manage your pain that don? (more content not included)...[facility] CenterED Note-Physicianon [id number] Note-PhysicianED Note-Physician Basic Information Time Seen: Matthew MILES, Zhane Enriquez 09/04/2024 13:28 Chief Complaint patient presents with lower back pain that started after picking something up. denies bowel or bladder issues History of Present Illness Patient is a 49-year-old female with a history of chronic low back pain who presents to the ED for acute on chronic pain. Patient states 2 days ago she was picking up a gallon of milk, when she felt increased pain to the left aspect of her lower back. Patient states she is scheduled to have a pain pump placed in approximately 2 weeks in [place]. She states she has been taking ibuprofen and oxycodone at home with minimal relief in symptoms. She notes pain is worsened with sitting and improved with ambulation. Patient does note tingling down the posterior aspect of her left lower extremity, though this is baseline. She denies any saddle anesthesia, change in urination, or loss of bowel control. Review of Systems A 10 point review of systems is negative except as noted above. Medical and Surgical History: Reviewed and noted Social history: Lives at home Family History: Reviewed. Tobacco: Use Physical Exam Vitals & Measurements T: 36.9 ???C(Oral) HR: 104(Peripheral) RR: 18 BP: 154/93 SpO2: 99% HT: 160 cm WT: 126 kg BMI: 49.22 General: The patient appears well and in no apparent distress. Patient is resting comfortably on cart. Skin: Warm, dry, no pallor noted. Head: Normocephalic, atraumatic Neck: No JVD, trachea midline, full range of motion of the cervical spine. No midline spinal tenderness to palpation. Mild tenderness to palpation over the left lumbar paraspinal region diffusely. Eye: PERRLA, EOMI ENT: Moist mucus membranes Cardiovascular: Regular rate normal peripheral perfusion Respiratory: No respiratory distress no accessory muscle use no obvious audible wheezing Musculoskeletal: normal ROM, no deformity, no swelling, flexion and extension of the hips is intactbilaterally. Flexion extension of the knees are intact bilaterally. Dorsiflexion and plantarflexionof ankles are intact bilaterally Neurological: A&O moves all extremities equal strength and symmetry Psychiatric: Cooperative and appropriate Medical Decision Making Patient is a 49-year-old female with a history of chronic low back pain who presents to the ED for acute on chronic pain. Patient is hemodynamically stable and afebrile. No evidence of cauda equina syndrome. Patient is given morphine in the ED. She is discharged home with lidocaine patches. Patienthas a follow-up appointment scheduled with pain management in 2 weeks. She was advised to return tot ED with any new or worsening symptoms. Patient is agreeable to plan and all questions were answered. Assessment/Plan Acute on chronic low back pain (M54.50: Low back pain, unspecified) Other chronic pain (G89.29: Other chronic pain) Orders: lidocaine topical, 1 patch(es), Topical, Daily, 7 patch(es), Refill(s) 0, apply 12 hours on and 12 hours off daily, [employer] [facility], 160, cm, 09/04/24 13:23:00 EDT, Height/Length Dosing, 126, kg, 09/04/24 13:23:00 EDT, Weight Dosing morphine, 4 mg = 1 mL, Injection, IntraMuscular, Once, Stop date 09/04/24 14:12:00 EDT, STAT, Startdate 09/04/24 14:12:00 EDT, 09/04/24 14:12:00 EDT ondansetron, 4 mg = 1 tab(s), Tab-Dis, Oral, Once, Stop date 09/04/24 14:12:00 EDT, STAT, Start date 09/04/24 14:12:00 EDT, 09/04/24 14:12:00 EDT Medications Administered Given morphine 4 mg/mL Inj, 4 mg, IntraMuscular Zofran ODT 4 mg Tab-Dis, 4 mg, Oral Disposition Plan Patient Discharge Condition stable Discharge Disposition home Discharge Prescription List Prescriptions lidocaine Top 5% film Patch, 1 patch(es), Topical, Daily Follow-up With When Contact Information KRISTAN LAU In 3 days 09/07/2024 EDT Additional Instructions: Call to schedule follow-up appointment with your primary care provider. Follow-up with the pain pump as scheduled in a couple of weeks. Return to the ED with any new or worsening symptoms. Patient Education Acute Back Pain, Adult Attestation Patient seen and evaluated by the physician construction assistant. Attending physician was present in the emergency department and supervised care. This visit was performed by both the physician and an APC. I performed all aspects of the MDM as documented. This report was transcribed using voice recognition software. Every effort was made to ensure accuracy, however, inadvertently computerized bill recapitulation clerk mistakes may be present. I performed a substantive part of the MDM during the patient???s E/M visit. I personally made or approved the documented management plan and acknowledge its risk of complications. (Independent Interpretation) My (EKG/X-Ray/US/CT as applicable) interpretation as above. (Discussion) Management/test interpretation discussed with APC. Problem List/Past Medical History Ongoing Arthritis of first carpometacarpal joint of r (more content not included)... [facility] HospitalComment on above:Result Comment: Electronically Signed By: Matthew MILES, Zhane Enriquez\.br\Date and Time Signed: 09/04/2522:39 EDT\.br\Electronically Co-Signed By: Blabina Bryant M.D.\.rufino\Date and Time Co-Signed: 09/06/24 07:48 EDTED Prov Noteon [id number] Prov NoteED PROVIDER NOTE [facility] NAME: Jerad Tracy AGE: 49 y.o. : 1975 VISIT DATE: 09/06/2024 CSN: [id number] PCP: No, Physician Chief Complaint Patient presents with Back Pain Chief complaint back pain History of present illness 49-year-old female who is here with lumbosacral pain and acute exacerbation of her back pain she has chronic pain degenerative disc disease and herniated disc denies any loss of feeling in the legs or bowel or bladder dysfunction issues. And is here for assessment denies fever chills or vomiting History reviewed. No pertinent past medical history. [...] for pain . Allergies[2] Review of Systems All other systems reviewed and are negative. No data found. Physical Exam Vitals and nursing note reviewed. Exam conducted with a coding quality coordinator present. Constitutional: Appearance: Normal appearance. She is normal weight. HENT: Head: Normocephalic and atraumatic. Cardiovascular: Rate and Rhythm: Normal rate and regular rhythm. Musculoskeletal: General: Tenderness present. Comments: Positive lumbosacral paraspinal tenderness. Motor function 5 out of 5 no saddle anesthesia Pulmonary: Effort: Pulmonary effort is normal. Breath sounds: Normal breath sounds. Abdominal: General: Abdomen is flat. Bowel sounds are normal. Neurological: Mental Status: She is alert. Laboratory & Radiographic Imaging (if done): No results found for this visit on 09/06/24. No orders to display Procedures Medical Decision Making Differential diagnosis considered #1 lumbosacral sprain #2 lumbosacral fracture #3 sciatica #4 cauda equina syndrome Considering the above differential diagnosis IM shot was given Clinical Impression: 1. Sprain of ligament of lumbosacral joint, initial encounter ED Disposition None Follow-up Information Follow-up information has not been specified. Contact information for after-discharge care Follow-up information has not been specified. New Prescriptions orphenadrine (NORFLEX) 100 mg tablet Take 1 (one) tablet (100 mg total) by mouth 2 (two) times a day for 10 days . methylPREDNISolone (MEDROL DOSEPACK) 4 mg tablet Follow package directions . [1] Social History Socioeconomic History Marital status: Legally Tobacco Use Smoking status: Every Day Current packs/day: 0.50 Average packs/day: 0.5 packs/day for 30.7 years (15.3 ttl pk-yrs) Types: Cigarettes Start date: 12/28/1993 Smokeless tobacco: Never Substance and Sexual Activity Alcohol use: Never Drug use: Never Social Drivers of Health Financial Resource Strain: Low Risk (06/12/2024) Received from [facility] Overall Financial Resource Strain (CARDIA) Difficulty of Paying Living Expenses: Not hard at all Food Insecurity: No Food Insecurity (06/12/2024) Received from [facility] Hunger Vital Sign Worried About Running Out of Food in the Last Year: Never true Ran Out of Food in the Last Year: Never true Transportation Needs: No Transportation Needs (06/12/2024) Received from [facility] PRAPARE - Transportation Lack of Transportation (Medical): No Lack of Transportation (Non-Medical): No Physical Activity: Inactive (06/12/2024) Received from [facility] Exercise Vital Sign Days of Exercise per Week: 0 days Minutes of Exercise per Session: 0 min Stress: No Stress Concern Present (06/12/2024) Received from [facility] [employer] [place] [employer] - Occupational Stress Questionnaire Feeling of Stress : Not at all Recent Concern: Stress - Stress Concern Present (04/02/2024) Received from [facility] [employer] [place] [employer] - Occupational Stress Questionnaire Feeling of Stress : Rather much Social Connections: Socially Isolated (06/12/2024) Received from [facility] Social Connection and Isolation Panel [NHANES] Frequency of Communication with Friends and Family: More than three times a week Frequency of Social Gatherings with Friends and Family: Twice a week Attends Orthodox Services: Never Active Member of Clubs or Organizations: No Attends Club or Organization Meetings: Never Marital Status: Housing Stability: Low Risk (06/12/2024) Received from [facility] Housing Stability Vital Sign Unable to Pay for Housing in the Last Year: No Number of Times Moved in the Last Year: 0 Homeless in the Last Year: No [2] Aller (more content not included)...NormalGrant Medical CenterED Clinical Summaryon [id number] Clinical SummaryED Clinical Summary [place] [id number] ED Clinical Summary Person Information Name: JERAD TRACY Tasha/[facility] Age: 49 Years : 1975 Sex: Female Language: Malagasy PCP: FLOR JONES Marital Status: Visit Id: Visit Reason: Back swelling; BACK PAIN Speciality: Acuity: 4 Enc Type: Emergency Med Service: Emergency Arrival: 09/04/2024 13:12:40 Discharge: 09/04/2024 14:31:46 LOS: 000 01:19 Checkin: 09/04/2024 13:12:40 Checkout: 09/04/2024 14:31:46 Dispo Type: Home (Routine DC) EVENTS: Event Name Event Status Request Date/Time Start Date/Time Complete Date/Time Arrive Complete 09/04/2024 13:12:40 09/04/2024 13:12:40 09/04/2024 13:12:40 Document Home Meds Request 09/04/2024 13:12:40 Triage Complete 09/04/2024 13:12:40 09/04/2024 13:23:57 09/04/2024 13:23:57 Registration Complete 09/04/2024 13:16:36 09/04/2024 13:16:36 09/04/2024 13:16:36 Reg Complete Request 09/04/2024 13:16:36 Reg Bed Request Complete 09/04/2024 13:16:36 09/04/2024 13:16:36 09/04/2024 13:16:36 Bed Assign Complete 09/04/2024 13:21:03 09/04/2024 13:21:03 09/04/2024 13:21:03 Dr Exam Complete 09/04/2024 13:21:03 09/04/2024 13:28:07 09/04/2024 13:28:07 RN Exam Complete 09/04/2024 13:21:03 09/04/2024 13:25:30 09/04/2024 13:25:30 Registration Request 09/04/2024 13:28:07 Dr Exam Complete 09/04/2024 13:33:21 09/04/2024 13:33:21 09/04/2024 13:33:21 Meds Admin Complete 09/04/2024 14:13:00 09/04/2024 14:26:10 Discharge Complete 09/04/2024 14:14:34 09/04/2024 14:31:53 09/04/2024 14:31:53 Transfer Complete 09/04/2024 14:31:53 09/04/2024 14:31:53 09/04/2024 14:31:53 ADDRESS: [address] [place] [phone] PHYS DOC NOTES: MEDICAL INFORMATION: Prescriptions Given: New Medications [employer] [facility], [address], [place] [id number], [phone] lidocaine topical (lidocaine Top 5% film Patch) 1 Patches Topical every day. apply 12 hours on and 12 hours off daily. Refills: 0. Medications to Continue with No Changes Other Medications cyclobenzaprine (cyclobenzaprine 10 mg Tab) 1 Tablets By Mouth 3 times a day as needed for spasm. Refills: 1. duloxetine (Cymbalta 60 mg Cap-DR) 1 Capsules By Mouth every day. (do not crush or chew). hydrOXYzine 25 Milligram for 1 Days. ibuprofen (ibuprofen 800 mg Tab) 1 Tablets By Mouth 3 times a day. Refills: 0. omeprazole (omeprazole 40 mg Cap-DR) 1 Capsules By Mouth 2 times a day. Refills: 3. ondansetron (Zofran 4 mg Tab) 1 Tablets By Mouth every 8 hours as needed Nausea/Vomiting. Refills: 1. oxycodone (oxyCODONE 10 mg ER Tab) 1 Tablets By Mouth every 12 hours as needed severe pain. phentermine (Adipex-P 37.5 mg Tab) 1 Tablets By Mouth every day. Refills: 2. spironolactone (spironolactone 25 mg Tab) 1 Tablets By Mouth 2 times a day. Refills: 1. tirzepatide (Zepbound 2.5 mg/0.5 mL subcutaneous solution) 2.5 Milligram Subcutaneous every week. Refills: 3. zolpidem (Ambien 5 mg Tab) 1 Tablets By Mouth once a day (at bedtime) as needed for sleep. Refills:0. PATIENT EDUCATION INFORMATION: Instructions: Acute Back Pain, Adult Follow up: With: Address: When: KRISTAN LAU In 3 days 09/07/2024 Comments: Call to schedule follow-up appointment with your primary care provider. Follow- up with the pain pump as scheduled in a couple of weeks. Return to the ED with any new or worsening symptoms. DIAGNOSIS: Acute on chronic low back pain; Other chronic painNormalPremier Health [facility] Patient Summaryon [id number] Patient SummaryED Patient Summary [place] [address] Patient Discharge Instructions Person Information Name: JERAD TRACY Age: 49 Years Arrival Date: 09/04/2024 13:12:40 Discharge Diagnosis: Acute on chronic low back pain; Other chronic pain Primary Care Physician: FLOR JONES Provider Information Primary Provider: Balbina Bryant M.D. Advanced Dietetic Intern:Zhane Castro PA-C The exam and treatment you received in the Emergency Department were for an urgent problem and are not intended as complete care. It is important that you follow up with a doctor, nurse practitioner,or physician???s construction assistant for ongoing care. If your symptoms become worse or you do not improve asexpected and you are unable to reach your usual health care provider, you should return to the Emergency Department. We are available 24 hours a day. JERAD TRACY has been given the following list of patient education materials, prescriptions andfollow-up instructions: Follow-up Instructions: With: Address: When: KRISTAN LAU In 3 days 09/07/2024 Comments: Call to schedule follow-up appointment with your primary care provider. Follow- up with the pain pump as scheduled in a couple of weeks. Return to the ED with any new or worsening symptoms. In the event that this physician does not participate in your insurance network, please consult with your insurance company to find a nearby participating provider. Patient Education Materials: Acute Back Pain, Adult A MESSAGE TO ALL PATIENTS REGARDING OPIOIDS PRESCRIPTION OPIOIDS: WHAT YOU NEED TO KNOW Prescription opioids can be used to help relieve uuhlpfzm-cs-esetpz pain and are often prescribed following a [...] guidance from the Food and Drug Administration (www.fda.gov/Drugs/ResourcesForYou). ??? Visi (more content not included)...NormalOn License Of [facility] Centerer [facility] CenterBasaint joseph hospital metabolic 2000 panelon 46-63-7354Fhslq gap [Moles/Vol]15 mmol/L10 - 20 mmol/L [facility] HospitalCalcium [Mass/Vol]8.9 mg/dL8.6 - 10.6 mg/dL [facility] HospitalChloride [Moles/Vol]107 mmol/L98 - 107 mmol/L [facility] HospitalCO2 [Moles/Vol]21 mmol/L21 - 32 mmol/L [facility] HospitalCreatinine [Mass/Vol]0.71 mg/dL0.50 - 1.05 mg/dLUnWood County HospitaleGMercy Health West HospitalComment on above:Calculations of estimated GFR are performed using the 2020 CKD-EPI Study Refit equation without therace variable for the IDMS- Traceable creatinine methods. https://jasn.asnjournals.org/content//ASN.6900362979 Glucose [Mass/Vol]107 mg/jNHekd86 - 99 mg/dLJoint Township District Memorial Hospital Interpretation and review of laboratory resultsAbnormalUniShelby Memorial HospitalPotassium [Moles/Vol]4.1 mmol/L3.5 - 5.3 mmol/[facility] HospitalComment on above:MILD HEMOLYSIS DETECTED. The result may be falsely elevated due to hemolysis or other interferents.Clinical correlation is recommended. Repeat testing may be considered.Sodium [Moles/Vol]139 mmol/L136 - 145 mmol/[facility] HospitalUrea nitrogen [Mass/Vol]11 mg/dL6 - 23 mg/dLLakeHealth Beachwood Medical CenterMR LUMBAR SPINE WO IV CONTRASTon [id number] LUMBAR SPINE WO IV CONTRAST Interpreted By: Bernadette Tapia and Ebai Jerky STUDY: MR LUMBAR SPINE WO IV CONTRAST; 08/29/2024 2:34 am INDICATION: Signs/Symptoms:hx of spinal stenosis, significant weakness to left leg. COMPARISON: CT lumbar spine 08/28/2024. MRI lumbar spine 06/27/2024. ACCESSION NUMBER(S): [id number] ORDERING CLINICIAN: FLEX MALAVE TECHNIQUE: Sagittal T1, T2, STIR, axial T1 [...] Bernadette Tapia 08/29/2024 3:29 AM Dictation workstation: [id number] Valley Medical CenterMR Lumbar spine WO contraston . Unchanged subarticular disc herniation at L4-5, status [...] Bernadette Tapia 08/29/2024 3:29 AM Dictation workstation: [id number] MMODALInterpreted By: Bernadette Tapia, and Violet More STUDY: MR LUMBAR SPINE WO IV CONTRAST; 08/29/2024 2:34 am INDICATION: Signs/Symptoms:hx of spinal stenosis, significant weakness to left leg. COMPARISON: CT lumbar spine 08/28/2024. MRI lumbar spine 06/27/2024. ACCESSION NUMBER(S): [id number] ORDERING CLINICIAN: FLEX MALAVE TECHNIQUE: Sagittal T1, T2, STIR, axial T1 [...] STIR hyperintense soft tissue edema are identified. [facility] MMODALBernadette Tapia MD - 08/29/2024 Interpreted By: Bernadette Tapia and Ebai Jerky STUDY: MR LUMBAR SPINE WO IV CONTRAST; 08/29/2024 2:34 am INDICATION: Signs/Symptoms:hx of spinal stenosis, significant weakness to left leg. COMPARISON: CT lumbar spine 08/28/2024. MRI lumbar spine 06/27/2024. ACCESSION NUMBER(S): [id number] ORDERING CLINICIAN: FLEX MALAVE TECHNIQUE: Sagittal T1, T2, STIR, axial T1 [...] Bernadette Tapia 08/29/2024 3:29 AM Dictation workstation: [id number] [facility] Work Phone: Radiology Study observation (narrative)[facility] Work Phone: MR Lumbar spine WO contrastOrdered By: Bernadette Tapia on 57-75-3710ElfcmcaknxWood County Hospital Work Phone: Basic metabolic 2000 panelon 64-47-7136Jazoy gap [Moles/Vol]15 mmol/BZatjdm96-34NmmbbwamafMemorial Health System Marietta [facility] Comment on above:Performed By: #### 07040-6 ####JOLENE Cantu ([id number])[facility] ([facility])[address] [place] [address]Lhfnwly [Mass/Vol] 8.9 mg/dLNormal8.6-10.6[facility] Memorial HospitalComment on above:Performed By: #### 82714-5 ####JOLENE Cantu ([id number])[facility] ([facility])[address] [place], [place] [address]Pjuojubt [Moles/Vol]107 mmol/LNormal 98-107UnSamaritan North Health CenterComment on above:Performed By: #### 56003-9 ####JOLENE Cantu ([id number])[facility] ([facility])[address] [place], [place] [address]OX9 [Moles/Vol]21 mmol/DZeqjxc96-77SnbblnaxsmSamaritan North Health CenterComment on above:Performed By: #### 93974-9 ####JOLENE Cantu ([id number])[facility] ([facility])[address] [place], [place] [address]Pevdfpirry [Mass/Vol]0.71 mg/dLNormal0.50-1.05[facility] HospitalComment on above:Performed By: #### 12020-9 ####JOLENE Cantu ([id number])[facility] ([facility])[address] [place], [place] [address]SEQ/1.73 sq M.predicted MDRD (S/P/Bld) [Vol rate/Area]mL/min/{1.73_m2} Normal>60UnSamaritan North Health CenterComment on above:Result Comment: Calculations of estimated GFR are performed using the 2020 CKD-EPI Study Refit equation without the race variable for the IDMS-Traceable creatinine methods. https://jasn.asnjournals.org/content/early//ASN.2979653177Ihmkfcbuy By: #### 54727-3 ####JOLENE Cantu ([id number])[facility] ([facility])[address] [place], [place] [address]Ibydmax [Mass/Vol]107 mg/pWKjdu15-99JifgtohkysMemorial Health System Marietta Memorial HospitalComment on above:Performed By: #### 67842-6 ####JOLENE Cantu ([id number])[facility] ([facility])[address] [place], [place] [address]Ylgrshnvj [Moles/Vol]4.1 mmol/LNormal3.5-5.3UnSamaritan North Health CenterComment on above:Result Comment: MILD HEMOLYSIS DETECTED. The result may be falsely elevated due to hemolysis or other interferents. Clinical correlation is recommended. Repeat testing may be considered.Performed By: #### 19648-8 ####JOLENE Cantu (73920)[facility] ([facility])[address] [place], [place] [address]Vhwcoj [Moles/Vol]139 mmol/YSsyzlf194-891VkwsqnciijSamaritan North Health CenterComment on above:Performed By: #### 45354-8 ####JOLENE Cantu ([id number])[facility] ([facility])[address] [place], [place] [address]Ihkw nitrogen [Mass/Vol]11 mg/dLNormal6-23UnSamaritan North Health CenterComment on above:Performed By: #### 90199-3 ####JOLENE Cantu (80847)[facility] ([facility])[address] [place], [place] [address]PVP panel Auto (Bld)on 67-87-2160Ctvybbkwool distribution width (RBC) [Ratio]14.1 % 11.5 - 14.5 %[facility] HospitalHematocrit (Bld) [Volume fraction] 42.3 %36.0 - 46.0 %[facility] HospitalHemoglobin (Bld) [Mass/Vol] 13.9 g/dL12.0 - 16.0 g/dLUnWood County HospitalInterpretation and review of laboratory resultsNormalUniCherrington HospitalH (RBC) [Entitic mass]28.3 pg26.0 - 34.[address] Joseph Warren HospitalHC (RBC) [Mass/Vol]32.9 g/dL32.0 - 36.0 g/dLUnMercy Health St. Joseph Warren HospitalV (RBC) [Entitic vol]86 fL80 - 100 fLUniShelby Memorial HospitalNucleated RBC/100 WBC (Bld) [Ratio]0 %[facility] HospitalPlatelets (Bld) [#/Vol]344 10*3/[facility]ers HospitalRBC (Bld) [#/Vol]4.91 10*6/[facility]riners HospitalWBC (Bld) [#/Vol]8.9 10*3/[facility]riners HospitalUnWood County HospitalErythrocyte distribution width (RBC) [Ratio]14.1 %Xxxqbw70.5-14.5UnSamaritan North Health CenterComment on above:Performed By: #### 46901-5 ####JOLENE Cantu (42096)[facility] ([facility])[address] [place] [address]Shqhbivtot (Bld) [Volume fraction] 42.3 %Rjkltc20.0-46.0[facility] Memorial HospitalComment on above:Performed By: #### 89983-6 ####JOLENE Cantu (20138)[facility] ([facility])[address] [place], [place] [address]Ltkuukovpu (Bld) [Mass/Vol]13.9 g/dL Iwrtbt37.0-16.0UnSamaritan North Health CenterComment on above: Performed By: #### 24431-3 ####JOLENE Cantu (95085)[facility] ([facility])[address] [place], [place] [address]TDB (RBC) [Entitic mass]28.3 xnEgtfnp72.0-34.0 [facility] Memorial HospitalComment on above:Performed By: #### 72061-8 ####JOLENE Cantu (03466)[facility] ([facility])[address] [place], [place] [address]EBKX (RBC) [Mass/Vol]32.9 g/zWLhzjrw91.0-36.0[facility] Memorial HospitalComment on above:Performed By: #### 68839-6 ####JOLENE Cantu (38884)[facility] ([facility])[address] [place], [place] [address]UBM (RBC) [Entitic vol]86 kKQcpmjy04-106KwpnfmidmuMemorial Health System Marietta Memorial HospitalComment on above:Performed By: #### 38107-8 ####JOLENE Cantu (13145)[facility] ([facility])[address] [place] [address] Nucleated RBC/100 WBC (Bld) [Ratio]0.0 /100 WBCsNormal0.0-0.0[facility] Memorial HospitalComment on above:Performed By: #### 14639-7 ####JOLENE Cantu (22694)[facility] ([facility])[address] [place], [place] [address]Sqryokwte (Bld) [#/Vol]344 x10*3/hFLrfgct052-802HpsojqjkpuSamaritan North Health CenterComment on above:Performed By: #### 03680-2 ####JOLENE Cantu (47796)[facility] ([facility])[address] [place], [place] [address]SWA (Bld) [#/Vol]4.91 x10*6/uLNormal4.00-5.20UnSamaritan North Health CenterComment on above:Performed By: #### 97500-8 ####JOLENE Cantu ([id number])[facility] ([facility])[address] [place] [address]YFI (Bld) [#/Vol]8.9 x10*3/uLNormal4.4-11.3[facility] Memorial HospitalComment on above:Performed By: #### 28979-8 ####JOLENE Cantu (22250)[facility] ([facility])[address] [place], [place] [address]XC LUMBAR SPINE WO IV CONTRASTon [id number] LUMBAR SPINE WO IV CONTRAST Interpreted By: Tomás Hercules, STUDY: CT LUMBAR SPINE WO IV CONTRAST; 08/28/2024 11:05 pm INDICATION: Signs/Symptoms:chronic low back pain, worse lower lumbar spine pain, assess for bony abnormality. COMPARISON: MR lumbar spine 06/28/2024. CT lumbar spine 04/23/2024 ACCESSION NUMBER(S): [id number] ORDERING CLINICIAN: FLEX MALAVE TECHNIQUE: Axial noncontrast CT images of the [...] central narrowing. There is moderate right and hair-xv-peakdbjd left foraminal narrowing at the L4/L5 level. [...] Tomás Hercules 08/28/2024 11:23 PM Dictation workstation: [id number] HospitalCT Lumbar spine WO contraston 66-17-1495Co acute fracture or traumatic subluxation of the lumbar spine. Postsurgical and degenerative changes as described above at L4/L5 MACRO: None. Signed by: Tomás Hercules 08/28/2024 11:23 PM Dictation workstation: [id number] MMODALInterpreted By: Tomás Hercules, STUDY: CT LUMBAR SPINE WO IV CONTRAST; 08/28/2024 11:05 pm INDICATION: Signs/Symptoms:chronic low back pain, worse lower lumbar spine pain, assess for bony abnormality. COMPARISON: MR lumbar spine 06/28/2024. CT lumbar spine 04/23/2024 ACCESSION NUMBER(S): [id number] ORDERING CLINICIAN: FLEX MALAVE TECHNIQUE: Axial noncontrast CT images of the [...] central narrowing. There is moderate right and ewhu-ty-iocdnyht left foraminal narrowing at the L4/L5 level. PREVERTEBRAL SOFT TISSUES: No prevertebral soft tissue swelling. Redemonstrated soft tissue thickening and possibly fluid in the left back soft tissues corresponding to abnormality seen on prior MR. OTHER FINDINGS: Low-density 1.9 cm left adrenal nodule favored to represent adenoma. [facility] MMODALTomás Hercules MD - 08/28/2024 Interpreted By: Tomás Hercules, STUDY: CT LUMBAR SPINE WO IV CONTRAST; 08/28/2024 11:05 pm INDICATION: Signs/Symptoms:chronic low back pain, worse lower lumbar spine pain, assess for bony abnormality. COMPARISON: MR lumbar spine 06/28/2024. CT lumbar spine 04/23/2024 ACCESSION NUMBER(S): [id number] ORDERING CLINICIAN: FLEX MALAVE TECHNIQUE: Axial noncontrast CT images of the [...] central narrowing. There is moderate right and zlej-jz-tqugweuk left foraminal narrowing at the L4/L5 level. [...] Tomás Hercules 08/28/2024 11:23 PM Dictation workstation: [id number] [facility] Work Phone: Radiology Study observation (narrative)[facility] Work Phone: CT Lumbar spine WO contrastOrdered By: Tomás Hercules on 40-22-0601PuymclelabWood County Hospital Work Phone: ED Clinical Summaryon [id number] Clinical SummaryED Clinical Summary [place] [id number] ED Clinical Summary Person Information Name: JERAD TRACY [place] Age: 49 Years : 1975 Sex: Female Language: Malagasy PCP: FLOR JONES Marital Status: Visit Id: Visit Reason: Back pain; BACK PAIN Speciality: Acuity: 4 Enc Type: Emergency Med Service: Emergency Arrival: 08/27/2024 09:20:07 Discharge: 08/27/2024 10:49:31 LOS: 000 01:29 Checkin: 08/27/2024 09:20:07 Checkout: 08/27/2024 10:49:31 Dispo Type: Home (Routine DC) EVENTS: Event Name Event Status Request Date/Time Start Date/Time Complete Date/Time Arrive Complete 08/27/2024 09:20:07 08/27/2024 09:20:07 08/27/2024 09:20:07 Document Home Meds Request 08/27/2024 09:20:07 Triage Complete 08/27/2024 09:20:07 08/27/2024 09:29:22 08/27/2024 09:29:22 Bed Assign Complete 08/27/2024 09:21:29 08/27/2024 09:21:29 08/27/2024 09:21:29 Dr Exam Complete 08/27/2024 09:21:29 08/27/2024 09:24:35 08/27/2024 09:24:35 RN Exam Complete 08/27/2024 09:21:29 08/27/2024 09:33:06 08/27/2024 09:33:06 Registration Complete 08/27/2024 09:24:35 08/27/2024 09:38:31 08/27/2024 09:38:31 Reg Complete Request 08/27/2024 09:38:31 Reg Bed Request Complete 08/27/2024 09:38:31 08/27/2024 09:38:31 08/27/2024 09:38:31 Meds Admin Cancel 08/27/2024 09:54:52 08/27/2024 10:02:01 Meds Admin Complete 08/27/2024 10:02:01 08/27/2024 10:23:42 Discharge Complete 08/27/2024 10:06:41 08/27/2024 10:49:36 08/27/2024 10:49:36 Transfer Complete 08/27/2024 10:49:36 08/27/2024 10:49:36 08/27/2024 10:49:36 ADDRESS: [address] [place] [id number] PHYS DOC NOTES: MEDICAL INFORMATION: Prescriptions Given: Medications to Continue with No Changes Other Medications cyclobenzaprine (cyclobenzaprine 10 mg Tab) 1 Tablets By Mouth 3 times a day as needed for spasm. Refills: 1. duloxetine (Cymbalta 60 mg Cap-DR) 1 Capsules By Mouth every day. (do not crush or chew). hydrOXYzine 25 Milligram for 1 Days. ibuprofen (ibuprofen 800 mg Tab) 1 Tablets By Mouth 3 times a day. Refills: 0. omeprazole (omeprazole 40 mg Cap-DR) 1 Capsules By Mouth 2 times a day. Refills: 3. ondansetron (Zofran 4 mg Tab) 1 Tablets By Mouth every 8 hours as needed Nausea/Vomiting. Refills: 1. oxycodone (oxyCODONE 10 mg ER Tab) 1 Tablets By Mouth every 12 hours as needed severe pain. phentermine (Adipex-P 37.5 mg Tab) 1 Tablets By Mouth every day. Refills: 2. spironolactone (spironolactone 25 mg Tab) 1 Tablets By Mouth 2 times a day. Refills: 1. tirzepatide (Zepbound 2.5 mg/0.5 mL subcutaneous solution) 2.5 Milligram Subcutaneous every week. Refills: 3. zolpidem (Ambien 5 mg Tab) 1 Tablets By Mouth once a day (at bedtime) as needed for sleep. Refills:0. PATIENT EDUCATION INFORMATION: Instructions: Chronic Pain, Adult Follow up: With: Address: When: KRISTAN LAU In 3 days 08/30/2024 Comments: Call the office of your primary [...] symptoms. DIAGNOSIS: Chronic back pain; Other chronic painNormalFisher Sal Medical CenterED Note-Physicianon [id number] Note-PhysicianED Note-Physician Basic Information Time Seen: Nikhil Tubbs DO 08/27/2024 09:24 Chief Complaint back pain twisted wrong History of Present Illness 49-year-old female with acute on chronic back pain. She reports she twisted funny and exacerbated her chronic back pain. She is hoping for a pain shot. No numbness, weakness, tingling. No bowel bladder incontinence or retention. Review of Systems A 10 point review of systems is negative except as noted above. Medical and Surgical History: Reviewed and noted Social history: Lives at home Tobacco: Denies Physical Exam Vitals & Measurements T: 36.6 ???C(Oral) HR: 80(Peripheral) RR: 18 BP: 138/83 SpO2: 99% HT: 160 cm WT: 126 kg BMI: 49.22 VITALS: I have reviewed the triage vital [...] appropriate to the setting. Medical Decision Making 49-year-old female to the emergency department chief complaint of acute on chronic back pain. Vitalstable, the patient is afebrile. No red flags. She is well-known to this department is at her baseline. No indication for imaging at this time. IM injection of Dilaudid is given. Her pain was improved. Patient was discharged home. Assessment/Plan Chronic back pain (M54.9: Dorsalgia, unspecified) Other chronic pain (G89.29: Other chronic pain) Orders: HYDROmorphone, 1 mg = 1 mL, Injection, IntraMuscular, Once, Stop date 08/27/24 9:54:00 EDT, STAT, Start date 08/27/24 9:54:00 EDT, 08/27/24 9:54:00 EDT Medications Administered Given HYDROmorphone 1 mg/mL injectable solution, 1 mg, IntraMuscular Disposition Plan Patient Discharge Condition Stable Discharge Disposition Home Discharge Prescription List Prescriptions No active prescription medications Follow-up With When Contact Information KRISTAN GUTIÉRREZMONIQUEALVAREZ In 3 days 08/30/2024 EDT Additional Instructions: Call the office of your [...] new or worsening symptoms. Patient Education Chronic Pain, Adult Problem List/Past Medical History Ongoing Arthritis of first carpometacarpal joint of right hand Bipolar disorder Chronic back pain Chronic hepatitis C Closed fracture of trapezoidal bone of wrist COVID-19 Diarrhea Disease of liver Drug therapy finding Edema Elevated blood pressure reading Encounter for screening mammogram for breast cancer Fatigue Migraine Morbid obesity with BMI of 45.0-49.9, adult Screening for cardiovascular condition Smoker Smoker Tendonitis of right wrist Weight gain Wellness examination Historical Bipolar Continuous opioid dependence Hepatitis C Liver disease Lyme disease Migraines Procedure/Surgical History Hysterectomy (2010), History of cholecystectomy, Hysterectomy, lap x 7, Tonillectomy with adenoids. Medications Inpatient No active inpatient medications Home Adipex- (more content not included)...[facility] HospitalComment on above:Result Comment: Electronically Signed By: Nikhil Tubbs DO\.rufino\Date and Time Signed: 08/27/24 14:17 EDTED Patient Summaryon [id number] Patient SummaryED Patient Summary [address] [address] Patient Discharge Instructions Person Information Name: JERAD TRACY Age: 49 Years Arrival Date: 08/27/2024 09:20:07 Discharge Diagnosis: Chronic back pain; Other chronic pain Primary Care Physician: FLOR JONES Provider Information Primary Provider: Nikhil Tubbs DO Advanced Dietetic Intern:None The exam and treatment you received in the Emergency Department were for an urgent problem and are not intended as complete care. It is important that you follow up with a doctor, nurse practitioner,or physician???s construction assistant for ongoing care. If your symptoms become worse or you do not improve asexpected and you are unable to reach your usual health care provider, you should return to the Emergency Department. We are available 24 hours a day. JERAD TRACY has been given the following list of patient education materials, prescriptions andfollow-up instructions: Follow-up Instructions: With: Address: When: KRISTAN LAU In 3 days 08/30/2024 Comments: Call the office of your primary [...] nearby participating provider. Patient Education Materials: Chronic Pain, Adult A MESSAGE TO ALL PATIENTS REGARDING OPIOIDS PRESCRIPTION OPIOIDS: WHAT YOU NEED TO KNOW Prescription opioids can be used to help relieve xivdekvf-qx-jxcygl pain and are often prescribed following a [...] to help manage your pain that don???t (more content not included)...[facility] HospitalC-Reactive Proteinon 14-45-1200HSZ High sensitivity method [Mass/Vol]mg/L0.0 - 5.0 mg/LBon [facility] HospitalCRP [Mass/Vol]mg/LNormal0.0-5.0[facility] HospitalComment on above: Performed By: #### CRP #### [facility] [address] [place] [address] ABS W Auto Differential panel (Bld)on 68-99-0858Bmxrrlwpd (Bld) [#/Vol]0 10*3/uL0.0 - 0.2 K/uLBon [facility] HospitalBasophils/100 WBC (Bld)0.1 %Bon [facility] HospitalEosinophils (Bld) [#/Vol]0 10*3/uL0.0 - 0.7 K/uLBon [facility] HospitalEosinophils/100 WBC (Bld)0.1 %Bon [facility] Erythrocyte distribution width (RBC) [Ratio]13.9 %11.5 - 14.5 %Bon [facility] HospitalHematocrit (Bld) [Volume fraction]46.3 %37.0 - 47.0 %[facility] HospitalHemoglobin (Bld) [Mass/Vol]15.2 g/dL12.0 - 16.0 g/dLBon [facility] HospitalInterpretation and review of laboratory resultsAbnormalBon [facility] HospitalLymphocytes (Bld) [#/Vol]1.3 10*3/uL1.0 - 4.8 K/uLBon [facility] Lymphocytes/100 WBC (Bld)11.9 %Bon [facility] HospitalH (RBC) [Entitic mass] 29.1 pg27.0 - 31.3 pgBon SecKettering Health Main CampusHC (RBC) [Mass/Vol]32.8 %Low33.0 - 37.0 %Bon [facility] HospitalV (RBC) [Entitic vol]88.7 fL79.4 - 94.8 fLBon [facility] HospitalMonocytes (Bld) [#/Vol]0.6 10*3/uL0.2 - 0.8 K/uLBon [facility] HospitalMonocytes/100 WBC (Bld)5 %Bon [facility] HospitalNeutrophils (Bld) [#/Vol]9.1 10*3/uLHigh1.4 - 6.5 K/uLBon [facility] HealthPlatelets (Bld) [#/Vol]391 10*3/uL130 - 400 K/uLBon [facility] HealthRBC (Bld) [#/Vol]5.22 10*6/uLBon [facility] HospitalSegmented neutrophils/100 WBC (Bld)82.5 %Bon [facility] HospitalWBC (Bld) [#/Vol]11 10*3/uLHigh4.8 - 10.8 K/uLBon [facility] Centery HealthBon [facility] HospitalCBC With Platelet and Differentialon 75-15-6901Xfbpqgcbo (Bld) [#/Vol]0.0 10*3/uLNormal0.0-0.2MValley View HospitalComment on above:Performed By: #### CBCWD #### [facility] [address] [place] [address] Rreaxbneg/100 WBC (Bld)0.1 %[facility] Comment on above:Performed By: #### CBCWD #### [facility] [address] [place] [address] Vnmymvyfffh (Bld) [#/Vol]0.0 10*3/uLNormal0.0-0.7[facility] HospitalComment on above:Performed By: #### CBCWD #### [facility] [address] [place] [address] Mkoeczflswl/100 WBC (Bld)0.1 %[facility] Comment on above:Performed By: #### CBCWD #### [facility] [address] [place] [address] Zomghkrnbtm distribution width (RBC) [Ratio]13.9 %Xjqdnj64.5-14.5 [facility] HospitalComment on above:Performed By: #### CBCWD #### [facility] [address] [place] [address] Afcfnatebd (Bld) [Volume fraction]46.3 %Owuvjw61.0-47.0[facility] HospitalComment on above:Performed By: #### CBCWD #### [facility] [address] [place] [address] Ikfsrjkuek (Bld) [Mass/Vol]15.2 g/dVFxnvlh25.0-16.0[facility] HospitalComment on above:Performed By: #### CBCWD #### [facility] [address] [place] [address] Trveieshxzd (Bld) [#/Vol]1.3 10*3/uLNormal1.0-4.8[facility] HospitalComment on above:Performed By: #### CBCWD #### [facility] [address] [place] [address] Szolkhvuvlb/100 WBC (Bld)11.9 %NormalCedar Springs Behavioral Hospital Comment on above:Performed By: #### CBCWD #### [facility] [address] [place] [address] JZC (RBC) [Entitic mass]29.1 liZxcyyi08.0-31.3MValley View HospitalComment on above:Performed By: #### CBCWD #### [facility] [address] [place] [address] DAEP56.8 %Low33.0-37.0[facility] HospitalComment on above: Performed By: #### CBCWD #### [facility] [address] [place] [address] ZKO (RBC) [Entitic vol]88.7 rTGqajri01.4-94.8[facility] HospitalComment on above:Performed By: #### CBCWD #### [facility] [address] [place] [address] Qrdjubhih (Bld) [#/Vol]0.6 10*3/uLNormal0.2-0.8[facility] HospitalComment on above:Performed By: #### CBCWD #### [facility] [address] [place] [address] Wacoogrbx/100 WBC (Bld)5.0 %[facility] Comment on above:Performed By: #### CBCWD #### [facility] [address] [place] [address] Ctefbhngthz (Bld) [#/Vol]9.1 10*3/uLCritically high1.4-6.5[facility] HospitalComment on above:Performed By: #### CBCWD #### [facility] [address] [place] [address] Tvjjsdrbicg/100 WBC (Bld)82.5 %[facility] Comment on above:Performed By: #### CBCWD #### [facility] [address] [place] [address] Jrgxhbfox (Bld) [#/Vol]391 10*3/yIFjxkuk412-504VrplrCedar Springs Behavioral HospitalComment on above:Performed By: #### CBCWD #### [facility] [address] [place] [address] MXP (Bld) [#/Vol]5.22 10*6/uLNormal4.20-5.40[facility] HospitalComment on above:Performed By: #### CBCWD #### [facility] [address] [place] [address] QJE (Bld) [#/Vol]11.0 10*3/uLCritically high4.8-10.8[facility] HospitalComment on above:Performed By: #### CBCWD #### [facility] [address] [place] [address] QST High sensitivity method [Mass/Vol]on [id number] [facility] HospitalComprehensive Metabolic Panelon 51-49-8442Iejkswt [Mass/Vol]4.3 g/dL Normal3.5-4.6MValley View HospitalComment on above:Performed By: #### CMP #### [facility] [address] [place] [address] KOB [Catalytic activity/Vol]126 U/YSvrppp21-346PqfqiCedar Springs Behavioral HospitalComment on above:Performed By: #### CMP #### [facility] [address] [place] [address] VQF [Catalytic activity/Vol]44 U/LCritically high0-33[facility] HospitalComment on above:Performed By: #### CMP #### [facility] [address] [place] [address] Kzzow gap [Moles/Vol]13 mmol/LNormal9-15[facility] HospitalComment on above:Performed By: #### CMP #### [facility] [address] [place] [address] AZA [Catalytic activity/Vol]35 U/LNormal0-35[facility] HospitalComment on above:Performed By: #### CMP #### [facility] [address] [place] [address] Mzuuhywbq [Mass/Vol]mg/dLNormal0.2-0.7[facility] Comment on above:Performed By: #### CMP #### [facility] [address] [place] [address] Gsmpwix [Mass/Vol]9.4 mg/dLNormal8.5-9.9[facility] HospitalComment on above:Performed By: #### CMP #### [facility] [address] [place] [address] Jupyhglh [Moles/Vol]103 mmol/FZxdnbp29-859CrlcvCedar Springs Behavioral HospitalComment on above:Performed By: #### CMP #### [facility] [address] [place] [address] WE8 [Moles/Vol]23 mmol/ZVlezwy77-26KudveCedar Springs Behavioral Hospital Comment on above:Performed By: #### CMP #### [facility] [address] [place] [address] Crhixfhddw [Mass/Vol]0.70 mg/dLNormal0.50-0.90[facility] HospitalComment on above:Performed By: #### CMP #### [facility] [address] [place] [address] VAY>90.0Normal>60[facility] HospitalComment on above: Result Comment: Pediatric calculator link https://www.kidney.org/professionals/kdoqi/gfr_calculatorped Effective Dec [...] or following therapy that affects renal tubular secretion.Performed By: #### CMP #### [facility] [address] [place] [address] Diajbnlq (S) [Mass/Vol]3.5 g/dLNormal2.3-3.5[facility] HospitalComment on above:Performed By: #### CMP #### [facility] [address] [place] [address] Sbrwzlf [Mass/Vol]144 mg/dLCritically avcj08-31UozmkValley View HospitalComment on above:Performed By: #### CMP #### [facility] [address] [place] [address] Cxwvtpcsv [Moles/Vol]4.2 mmol/LNormal3.4-4.9[facility] HospitalComment on above:Performed By: #### CMP #### [facility] [address] [place] [address] Xihztjn [Mass/Vol]7.8 g/dLNormal6.3-8.0[facility] Comment on above:Performed By: #### CMP #### [facility] [address] [place] [address] Zrexqw [Moles/Vol]139 mmol/NJxqbnp816-167HrndiCedar Springs Behavioral HospitalComment on above:Performed By: #### CMP #### [facility] [address] [place] [address] Ukdh nitrogen [Mass/Vol]11 mg/dLNormal6-20[facility] HospitalComment on above:Performed By: #### CMP #### [facility] [address] [place] [address] Pucwntsrouugh metabolic 2000 panelon 15-71-1214Kzzldog [Mass/Vol]4.3 g/dL3.5 - 4.6 g/dLBon Secours Waremakersy HealthALP [Catalytic activity/Vol]126 U/L40 - 130 U/LBon Secours Silentsoft HealthALT [Catalytic activity/Vol]44 U/LHigh0 - 33 U/LBon Secours Silentsoft HealthAnion gap [Moles/Vol]13 mmol/LBon Secours [facility]ents[facility] HealthAST [Catalytic activity/Vol]35 U/L0 - 35 U/LBon Secours [facility] Health Bilirubin [Mass/Vol]mg/dL0.2 - 0.7 mg/dLBon Secours Waremakersy HealthCalcium [Mass/Vol]9.4 mg/dL8.5 - 9.9 mg/dLBon Secours Mercy HealthChloride [Moles/Vol] 103 mmol/LBon Secours Silentsoft HealthCO2 [Moles/Vol]23 mmol/LBon [facility]ours Interrad MedicalCreatinine [Mass/Vol]0.70 mg/dL0.50 - 0.90 mg/dLBon [facility] GFR/1.73 sq M.predicted among non-blacks MDRD (S/P/Bld) [Vol rate/Area]60 - PINF Bon SecLourdes Medical CenterParadigm SolarComment on above:Pediatric calculator link https://www.kidney.org/professionals/kdoqi/gfr_calculatorped Effective Dec 25, 2021 [...] following therapy that affects renal tubular secretion. Globulin (S) [Mass/Vol]3.5 g/dL2.3 - 3.5 g/dLBon [facility] HospitalGlucose [Mass/Vol]144 mg/wUHmyu24 - 99 mg/dLBon [facility] HospitalInterpretation and review of laboratory resultsAbnormalBon [facility] HospitalPotassium [Moles/Vol]4.2 mmol/LBon [facility] HospitalProtein [Mass/Vol]7.8 g/dL6.3 - 8.0 g/dLBon [facility] HospitalSodium [Moles/Vol]139 mmol/LBon [facility] HospitalUrea nitrogen [Mass/Vol]11 mg/dL6 - 20 mg/dLBon [facility] HospitalESR Westergren method (Bld) [Velocity]on 73-04-7943CXL (Bld) [Velocity]13 mm0 - 20 mmBon [facility] HospitalComment on above:ESR Units mm/HrBon [facility] HospitalLactate (BldV) [Moles/Vol]on 03-33-4232Gqb [facility] HospitalLactic Acidon 65-75-3736Xghaquz (BldV) [Moles/Vol]1.8 mmol/L0.5 - 2.2 mmol/LBon [facility] HospitalLactate [Moles/Vol]1.8 mmol/LNormal0.5-2.2 [facility] HospitalComment on above:Performed By: #### LACID #### [facility] [address] [place] [address] MS Lumbar spine WO and W contrast Karen . No acute osseous abnormality. 2. Gasx-lc-scgfsosr central canal stenosis is present at L4/L5. 3. Multiple levels of neural foraminal narrowing as described above. 4. No evidence of epidural mass or abscess. DEBBIE BROW[facility] RADIOLOGYEXAMINATION: MRI OF THE LUMBAR SPINE WITHOUT AND [...] present with circumferential disc bulge resulting in kasc-zz-zabxtzqi central canal stenosis. Moderate to severe bilateral neural foraminal narrowing is present at this level. L5/S1: Facet hypertrophy is present. No central canal stenosis. There is moderate to severe right neural foraminal narrowing and mild left neural foraminal narrowing. Jenny Wells DO - 08/21/2024 EXAMINATION: MRI OF THE [...] present with circumferential disc bulge resulting in oits-wy-dmexchaj central canal stenosis. Moderate to severe bilateral neural foraminal narrowing is present at this level. L5/S1: Facet hypertrophy is present. No central canal stenosis. There is moderate to severe right neural foraminal narrowing and mild left neural foraminal narrowing. IMPRESSION: 1. No acute osseous abnormality. 2. Lqfk-ev-iycktcou central canal stenosis is present at L4/L5. 3. Multiple levels of neural foraminal narrowing as described above. 4. No evidence of epidural mass or abscess. [facility] HospitalRadiology Study observation (narrative)[facility] Lum[facility] spine WO and W contrast IVOrdered By: Jenny Jauregui on [id number] Health Work Phone: MRI LUMBAR SPINE W WO CONTRASTon [id number] LUMBAR SPINE W WO CONTRASTEXAMINATION: MRI OF THE LUMBAR SPINE WITHOUT AND [...] present with circumferential disc bulge resulting in gsby-bw-fiflzvyh central canal stenosis. Moderate to severe bilateral neural foraminal narrowing is present at this level. L5/S1: Facet hypertrophy is present. No central canal stenosis. There is moderate to severe right neural foraminal narrowing and mild left neural foraminal narrowing. IMPRESSION: 1. No acute osseous abnormality. 2. Xhsx-bk-jrwsdodc central canal stenosis is present at L4/L5. 3. Multiple levels of neural foraminal narrowing as described above. 4. No evidence of epidural mass or abscess. Interpreted by: Jenny Jauregui DO Signed by: Jenny Jauregui DO 08/21/24 Final resultNoUniversity of Colorado HospitalMicroscopic Urinalysison [id number] LM Ql (Urine sed)MANYAbnormalNegative /HPFBon [facility] HospitalEpithelial cells Auto (Urine sed) [#/Area]3-5Bon [facility] Hyaline casts Auto (Urine sed) [#/Area]1-3Bon [facility] HospitalRBC Auto (Urine sed) [#/Area]0-2Bon [facility] HospitalWBC Auto (Urine sed) [#/Area]6-9 AbnormalBon [facility] HospitalNo Panel Informationon [id number] and review of laboratory resultsAbnormalBon [facility] HospitalSedimentation Rateon 77-78-3043Mbzehcqzbvewn Rate13 mmNormal0-20 [facility] HospitalComment on above:Result Comment: ESR Units mm/Hr Performed By: #### ESR #### [facility] [address] [place] [address] Zhhysobgda with Reflex to Cultureon [id number] Ql (U) NegativeNegativeBon Secours Mercy HealthClarity (U)CLOUDYAbnormalClearBon Secours Mercy HealthColor (U)YellowStraw/YellowBon Secours Mercy HealthGlucose Test strip (U) [Mass/Vol]NegativeNegative mg/dLBon Secours [facility] Health Hemoglobin Ql (U)NegativeNegativeBon Secours Mercy HealthKetones (U) [Mass/Vol] NegativeNegative mg/dLBon Secours Mercy HealthLeukocyte esterase Test strip Ql (U)TRACEAbnormalNegativeBon Secours Mercy HealthNitrite Ql (U)PositiveAbnormal NegativeBon Secours Mercy HealthpH (U)7.5 [pH]5.0 - 9.0[facility] Protein (U) [Mass/Vol]NegativeNegative mg/dLBon Secours Mercy HealthSpecific gravity (U) [Rel density]1.0251.005 - 1.030[facility] HealthUrine Reflex to CultureNot IndicatedBon Secours Mercy HealthUrobilinogen Qn (U)0.2NINFBon Secours Mercy HealthUrinalysis, reflex to cultureon [id number] Reflexed to CultureNot IndicatedNormHealthSouth Rehabilitation Hospital of LittletonComment on above: Performed By: #### CMP #### [facility] [address] [place] [address] Lzcswdouy Ql (U)NegativeNormalNegDenver Springs Comment on above:Performed By: #### CMP #### [facility] [address] [place] [address] Azrogja (U)CLOUDYAbnormalClearMValley View HospitalComment on above:Performed By: #### CMP #### [facility] [address] [place] [address] Qxcvz (U)YellowNormalStraw/YellCedar Springs Behavioral HospitalComment on above:Performed By: #### CMP #### [facility] [address] [place] [address] Gnfbrud Ql (U)[facility] Comment on above:Performed By: #### CMP #### [facility] [address] [place] [address] Aephbrxddf Ql (U)NegativeCatskill Regional Medical Center Comment on above:Performed By: #### CMP #### [facility] [address] [place] [address] Chppwsb Ql (U)[facility] Comment on above:Performed By: #### CMP #### [facility] [address] [place] [address] Trsojkarf esterase Test strip Ql (U)TRACEAbRome Memorial HospitalComment on above:Performed By: #### CMP #### [facility] [address] [place] [address] Gskjerd Ql (U)[facility] Comment on above:Performed By: #### CMP #### [facility] [address] [place] [address] aP (U)7.5 [pH]Normal5.0-9.0[facility] HospitalComment on above:Performed By: #### CMP #### [facility] [address] [place] [address] Lmzqubc Ql (U)[facility] Comment on above:Performed By: #### CMP #### [facility] [address] [place] [address] Jrayvqia gravity (U) [Rel density]1.820Xpxdef6.005-1.03[facility] HospitalComment on above:Performed By: #### CMP #### [facility] [address] [place] [address] Oltlvtriwgmn Qn (U)0.2 {Jan'U}/dLNormal< 2.0[facility] HospitalComment on above:Performed By: #### CMP #### [facility] [address] [place] [address] Kshes Microscopicon 82-04-0886Kubkv BacteriaMANYAbnormalNegative [facility] HospitalComment on above:Performed By: #### UMIC #### [facility] [address] [place] [address] Kzvly Epithelial Cells Aqts4-8Fwpowe0-7Ppfxa[address] [place] [address] Comment on above:Performed By: #### UMIC #### [facility] [address] [place] [address] Tccda Hyaline Casts Bpdf5-0Wrhjic8-1Fmeqa[address] [place] [address] Comment on above:Performed By: #### UMIC #### [facility] [address] [place] [address] Vzgzk RBC Bnje0-4Apkifv5-4Sahbt[address] [place], [place] [address]Comment on above:Performed By: #### UMIC #### [facility] [address] [place] [address] Xlayu WBC Gpff3-1Zqxzovow5-5Hzpoo[address] [place], [place] [address]Comment on above:Performed By: #### UMIC #### [facility] [address] [place] [address] MU LUMBAR SPINE WO CONTRASTon 18-20-1643PX LUMBAR SPINE WO CONTRAST EXAMINATION: CT OF THE LUMBAR SPINE WITHOUT [...] the absence of prior studies for comparison. Interpreted by: Mora Dorsey MD Signed by: Mora Dorsey MD 08/20/24 Final resultNormalWhite HospitalCT Lumbar spine WO contraston . Degenerative disc disease and facet arthropathy with associated narrowing at L4-5 and L5-S1 as detailed above. Consider MRI for further evaluation. Postoperative changes. 2. Hypodense adrenal nodules, likely incidental and benign though with limited evaluation on this study. Recommend dedicated CT or MRI in the absence of prior studies for comparison. [facility] CENTERYANIRA RADIOLOGYEXAMINATION: CT OF THE LUMBAR SPINE WITHOUT CONTRAST [...] central canal. Severe bilateral neural foraminal narrowing. [facility], Mora Hernandez MD - 08/20/2024 EXAMINATION: CT OF THE [...] the absence of prior studies for comparison. NowThis NewsRadiology Study observation (narrative)NowThis NewsFL Lumbar spine WO contrastOrdered By: Mora Dorsey on 08-20-2024 [facility] Work Phone: ED Clinical Summaryon [id number] Clinical SummaryED Clinical Summary [place] [id number] ED Clinical Summary Person Information Name: JERAD TRACY [place] Age: 49 Years : 1975 Sex: Female Language: Malagasy PCP: FLOR JONES Marital Status: Visit Id: Visit Reason: Back pain; LOWER BACK PAIN Speciality: Acuity: 5 Enc Type: Emergency Med Service: Emergency Arrival: 08/17/2024 08:34:31 Discharge: 08/17/2024 09:44:04 LOS: 000 01:10 Checkin: 08/17/2024 08:34:31 Checkout: 08/17/2024 09:44:04 Dispo Type: Home (Routine DC) EVENTS: Event Name Event Status Request Date/Time Start Date/Time Complete Date/Time Arrive Complete 08/17/2024 08:34:31 08/17/2024 08:34:31 08/17/2024 08:34:31 Document Home Meds Request 08/17/2024 08:34:31 Triage Complete 08/17/2024 08:34:31 08/17/2024 08:43:43 08/17/2024 08:43:43 Bed Assign Complete 08/17/2024 08:36:10 08/17/2024 08:36:10 08/17/2024 08:36:10 Dr Exam Complete 08/17/2024 08:36:10 08/17/2024 08:36:36 08/17/2024 08:36:36 RN Exam Complete 08/17/2024 08:36:10 08/17/2024 08:47:42 08/17/2024 08:47:42 Registration Complete 08/17/2024 08:36:36 08/17/2024 08:36:48 08/17/2024 08:36:48 Reg Complete Request 08/17/2024 08:36:48 Reg Bed Request Complete 08/17/2024 08:36:48 08/17/2024 08:36:48 08/17/2024 08:36:48 Dr Exam Complete 08/17/2024 08:38:53 08/17/2024 08:38:53 08/17/2024 08:38:53 Registration Request 08/17/2024 08:38:53 Meds Admin Complete 08/17/2024 08:58:18 08/17/2024 09:13:58 Discharge Complete 08/17/2024 08:58:38 08/17/2024 09:44:09 08/17/2024 09:44:09 Transfer Complete 08/17/2024 09:44:09 08/17/2024 09:44:09 08/17/2024 09:44:09 ADDRESS: [address] [place], [place] [address]Jazmine [facility] [id number] PHYS DOC NOTES: MEDICAL INFORMATION: Prescriptions Given: Medications to Continue with No Changes Other Medications cyclobenzaprine (cyclobenzaprine 10 mg Tab) 1 Tablets By Mouth 3 times a day as needed for spasm. Refills: 1. duloxetine (Cymbalta 60 mg Cap-DR) 1 Capsules By Mouth every day. (do not crush or chew). hydrOXYzine 25 Milligram for 1 Days. ibuprofen (ibuprofen 800 mg Tab) 1 Tablets By Mouth 3 times a day. Refills: 0. omeprazole (omeprazole 40 mg Cap-DR) 1 Capsules By Mouth every day. Refills: 3. ondansetron (Zofran 4 mg Tab) 1 Tablets By Mouth every 8 hours as needed Nausea/Vomiting. Refills: 1. oxycodone (oxyCODONE 10 mg ER Tab) 1 Tablets By Mouth every 12 hours as needed severe pain. phentermine (Adipex-P 37.5 mg Tab) 1 Tablets By Mouth every day. Refills: 2. spironolactone (spironolactone 25 mg Tab) 1 Tablets By Mouth 2 times a day. Refills: 1. tirzepatide (Zepbound 2.5 mg/0.5 mL subcutaneous solution) 2.5 Milligram Subcutaneous every week. Refills: 3. zolpidem (Ambien 5 mg Tab) 1 Tablets By Mouth once a day (at bedtime) as needed for sleep. Refills:0. PATIENT EDUCATION INFORMATION: Instructions: Chronic Back Pain Follow up: With: Address: When: KRISTANRadha LAU In 3 days 08/20/2024 DIAGNOSIS: Back pain, chronic; Other chronic painNormalFisher Sal Medical CenterED Note-Physicianon [id number] Note-PhysicianED Note-Physician Basic Information Time Seen: Brandon MILES Robert 08/17/2024 08:36 Chief Complaint Patient presents with lower back pain that chroinc and on oxycodone 5mg at 4am, muscle relaxer around the same times and Motrin 800 mg at 6am. denies bowel or bladder issues. awaiting pain pump from pain mangt next month History of Present Illness 49-year-old female comes to the ED for evaluation of back pain. Longstanding history of chronic back pain. Currently getting evaluated by pain management for the possibility of a pain pump. She is onchronic narcotic therapy at home. She presents today with acute on chronic pain. She attributes this to increased physical activity yesterday. No specific trauma to the area. No associated paresthesias or saddle anesthesia. No lower extremity weakness. No bowel or bladder incontinence or retention.No dysuria or hematuria. No associated abdominal pain, nausea, vomiting, fever or chills. Review of Systems A 10 point review of systems is negative except as noted above. Medical and Surgical History: Reviewed and noted Social history: Lives at home Tobacco: Denies Physical Exam Vitals & Measurements T: 36.7 ???C(Oral) HR: 107(Peripheral) RR: 18 BP: 131/82 SpO2: 100% HT: 160 cm WT: 126.6 kg BMI: 49.45 Nurses notes and vital signs reviewed and patient is not hypoxic. General: Patient appears uncomfortable but not in any distress. Sitting in the exam chair Skin: Warm, dry. Head: Atraumatic. Neck: No JVD. Eye: Normal conjunctiva. Ears, Nose, Mouth, and Throat: Moist mucous membranes. Cardiovascular: Strong distal pulses. Chest wall: Respiratory: Respirations are nonlabored. Back: Normal range of motion. Musculoskeletal: Normal ROM with no gross deformity. Gastrointestinal: Urological: Neurological: Awake and alert. No focal deficits. Follows commands. Psychiatric: Cooperative. Medical Decision Making Patient presents with acute on chronic back pain. She has no evidence of neurovascular compromise. No new or unusual symptoms. She is medicated here and discharged home to continue with outpatient pain management regiment. Patient was encouraged to return to the ED if symptoms worsen or change. Assessment/Plan Back pain, chronic (M54.9: Dorsalgia, unspecified) Other chronic pain (G89.29: Other chronic pain) Orders: morphine, 8 mg = 2 mL, Injection, IntraMuscular, Once, Stop date 08/17/24 8:58:00 EDT, STAT, Start date 08/17/24 8:58:00 EDT, 08/17/24 8:58:00 EDT ondansetron, 4 mg = 1 tab(s), Tab-Dis, Oral, Once, Stop date 08/17/24 8:58:00 EDT, STAT, Start date08/17/24 8:58:00 EDT, 08/17/24 8:58:00 EDT Disposition Plan Patient Discharge Condition Disposition: Discharged home Condition: Improved and stable Counseled: Patient and/or family were counseled to workup, results, treatment plan and follow-up recommendations Discharge Prescription List Prescriptions No active prescription medications Follow-up With When Contact Information KRISTAN LAU In 3 days 08/20/2024 EDT Additional Instructions: Patient Education Chronic Back Pain Attestation I performed a substantive part of the MDM during the patient???s E/M visit. I personally made or approved the documented management plan and acknowledge its risk of complications. (Independent Interpretation) My (EKG/X-Ray/US/CT) interpretation as above. (Discussion) Management/test interpretation discussed with APC. This report was transcribed using voice recognition software. Every effort was made to ensure accuracy, however, inadvertently computerized bill recapitulation clerk mistakes may be present. Appropriate healthcare PPE was used in evaluating this patient. Problem List/Past Medical History Ongoing Arthritis of first carpometacarpal joint of right hand Bipolar disorder Chronic back pain Chronic hepatitis C Closed fracture of trapezoidal bone of wrist COVID-19 Diarrhea Disease of liver Drug therapy finding Edema Elevated blood pressure reading Encounter for screening mammogram for breast cancer Fatigue Migraine Morbid obesity with BMI of 45.0-49.9, adult Screening for cardiovascular condition Smoker Smoker Tendonitis of right wrist Weight gain Wellness examination Historical Bipolar Continuous opioid dependence Hepatitis C Liver disease Lyme disease Migraines Procedure/Surgical History Hysterectomy (2010), History of cholecystectomy, Hysterectomy, lap x 7, Tonillectomy with adenoids. Medications Inpatient morphine 4 mg/mL Inj, 8 mg= 2 mL, IntraMuscular, Once Zofran ODT 4 mg Tab-Dis, 4 mg= 1 tab(s), Oral, Once Home Adipex-P 37.5 mg Tab, 37.5 mg= 1 tab(s), Oral, Daily, 2 refills Ambien 5 mg Tab, 5 mg= 1 tab(s), Oral, Once a day (at bedtime), PRN cyclobenzaprine 10 mg Tab, 10 mg= 1 tab(s), Oral, TID, PRN, 1 refills Cymbalta 60 mg Cap-DR, 1 cap(s), Oral, Daily hydrOXYzine, 25 mg ibuprofen 800 mg Tab, 800 mg= 1 tab(s), Oral, TID omeprazole 40 (more content not included)...[facility] Comment on above:Result Comment: Electronically Signed By: Robert Taylor PA-C\.br\Date and Time Signed: 08/17/2508:09 EDT\.br\Electronically Co-Signed By: Balbina Bryant M.D.\.br\Date and Time Co-Signed: 08/17/24 12:07 EDTED Patient Summaryon [id number] Patient SummaryED Patient Summary [place] [address] Patient Discharge Instructions Person Information Name: JERAD TRACY Age: 49 Years Arrival Date: 08/17/2024 08:34:31 Discharge Diagnosis: Back pain, chronic; Other chronic pain Primary Care Physician: FLOR JONES Provider Information Primary Provider: Balbina Bryant M.D. Advanced Dietetic Intern:Robert Taylor PA-C The exam and treatment you received in the Emergency Department were for an urgent problem and are not intended as complete care. It is important that you follow up with a doctor, nurse practitioner,or physician???s construction assistant for ongoing care. If your symptoms become worse or you do not improve asexpected and you are unable to reach your usual health care provider, you should return to the Emergency Department. We are available 24 hours a day. JERAD TRACY has been given the following list of patient education materials, prescriptions andfollow-up instructions: Follow-up Instructions: With: Address: When: KRISTAN LAU In 3 days 08/20/2024 In the event that this physician does not participate in your insurance network, please consult with your insurance company to find a nearby participating provider. Patient Education Materials: Chronic Back Pain A MESSAGE TO ALL PATIENTS REGARDING OPIOIDS PRESCRIPTION OPIOIDS: WHAT YOU NEED TO KNOW Prescription opioids can be used to help relieve ivoqjrjv-zx-kbvriv pain and are often prescribed following a [...] guidance from the Food and Drug Administration (www.fda.gov/Drugs/ResourcesForYou). ??? Visit www.cdc.gov/drugoverdose to learn about the risks of opioids abuse and overdose. ??? If you believe you may be struggling with addiction, tell your health childcare aide and askfor guidance or call [facility] (more content not included)...[facility] [id number] Clinical Summary [place] [id number] [place] [address] ED Clinical Summary Person Information Name: Jerad Tracy/[facility] Age: 49 Years : 1975 Sex: Female PCP: Marital Status: Phone: Race: White Ethnicity: Not or Language: Malagasy Visit Reason: Back pain; back pain Acuity: 4 Enc Type: Emergency Med Service: Emergency Medicine Arrival: 07/24/2024 16:06:46 Discharge: 07/24/2024 18:12:00 LOS: 000 02:06 Checkin: 07/24/2024 16:06:46 Checkout: 07/24/2024 18:12:00 Dispo Type: Home or Self Care Address: [address] [place] [id number] Provider Notes: Diagnosis: 1:Chronic back pain Problems Active Hep C w/ coma, chronic Smoking Status: Smoking Status 10 or more cigarettes (1/2 pack or more)/day in last 30 days Functional Status: Sensory Deficits: History of Falls: Mobility Assistance Prior to Admission: ADLs: Current Level of Assistance for Self-Care/Mobility: Cognitive Status: Allergies HYDROcodone (hives) penicillin (hives) Laboratory or Other Results This Visit (last charted value for your 07/24/2024 visit) No Laboratory or Other Results This Visit Measurements: Height: Weight: 123.9 kg Blood Pressure: /106 mmHg BMI: Procedures No Procedures Documented Immunizations No Immunizations Documented This Visit Final Med List: New Medications Printed Prescriptions dexamethasone (dexamethasone 4 mg oral tablet) 1 Tabs Oral (given by mouth) 3 times a day for 5 Days. Refills: 0. Last Dose: Medications that have not changed Other Medications dicyclomine (Bentyl 10 mg oral capsule) 1 Capsules Oral (given by mouth) 3 times a day as needed abdominal spasms for 7 Days. Refills: 0. Last Dose: esomeprazole (NexIUM 20 mg oral delayed release capsule) 1 Capsules Oral (given by mouth) every day. Last Dose: methylPREDNISolone (Medrol Dosepak 4 mg oral tablet) 1 Packets Oral (given by mouth) As Indicated for 6 Days. as directed on package labeling. Refills: 0. Last Dose: ondansetron (Zofran 4 mg oral tablet) 1 Tabs Oral (given by mouth) every 8 hours as needed as needed for nausea/vomiting. Refills: 0. Last Dose: Printed Prescriptions dexamethasone (dexamethasone 4 mg oral tablet) 1 Tabs Oral (given by mouth) 3 times a day for 5 Days. Refills: 0. Other Medications dicyclomine (Bentyl 10 mg oral [...] Role Assigned Unassigned Daysi Yates ED MidLevel 07/24/2024 17:30:52 Eufemia Rossi ED Nurse 07/24/2024 17:32:05 Follow up: With: Address: When: Back specialist Comments: Start taking dexamethasone 3 times a day x 5 days. Take your current medication regimen as previously prescribed. Follow-up with your primary care provider in 3 to 5 days for reevaluation of symptomsas needed. You can take Tylenol and/or ibuprofen as needed for any pain or discomfort. Please return to the emergency department for any new or worsening symptoms. Discharge Orders: Discharge Patient 07/24/24 18:02:00 EDT, Discharge to Home, Self, Chronic back pain Patient Education Information: BACK CARE TIPS [facility] Poison Help line: . [facility] Hotline: [place] Tobacco Quit Line: [place], [place]) [address]: [phone] [place], [place]) [address]: [phone] [facility] [address] [facility]. [place], [place]: [phone]-Physicianon [id number] Note-Physician Chief Complaint known L4-5 herniated disk, pain worsened yesterday. No injury,. No new numbness or tingling. History of Present Illness Patient is an alert, oriented 49-year-old female presenting to the emergency department today with worsening back pain. Patient is not from this area and lives closer to the [facility]. Patient travels here to see family. Patient reports she was not planning up COVID stayed overnight so she didnot bring her medications. Patient reports that she has got medications at home she just needs to be able to get back home to do so. Patient denies being on any recent steroid therapy. On evaluation patient has full range of motion of the neck. No midline vertebral tenderness noted in cervical, thoracic, or lumbar spine. Tenderness to the paraspinal musculature especially in the lumbar spine area. Patient denies any chest pain or shortness of breath. Respirations are easy, unlabored. Review of Systems As reviewed in the HPI. All other systems reviewed are negative or normal. Physical Exam As dictated in HPI. If not mentioned it is presumed within normal limits. Vitals & Measurements T: 36.6 ?C (Oral) HR: 107 (Peripheral) RR: 17 BP: 164/106 SpO2: 97% HT: 160 cm WT: 123.9 kg (Dosing) Additional Vitals No qualifying data available. Procedure No qualifying data available. ASA Documentation Medical Decision Making MEDICAL DECISION MAKING Number and Complexity of Problems Differential Diagnosis: _Including but not limited to chronic back pain Treatment and Disposition ED Course: _ Patient is an alert, oriented 49-year-old female presenting to the emergency department today with worsening back pain. Patient is not from this area and lives closer to the [facility]. Patient travels here to see family. Patient reports she was not planning up COVID stayed overnight so she did not bring her medications. Patient reports that she has got medications at home she just needs to be able to get back home to do so. Patient denies being on any recent steroid therapy. On evaluation patient has full range of motion of the neck. No midline vertebral tenderness noted in cervical, thoracic, or lumbar spine. Tenderness to the paraspinal musculature especially in the lumbar spine area. Patient denies any chest pain or shortness of breath. Respirations are easy, unlabored. On evaluation patient does not have any numbness or tingling. Patient denies being on any recent steroid therapy. I do feel she would benefit from this. She is agreeable. I did order for patient to receive 2 mg Dilaudid IM as this is our typical course of action with her when she does come and. Patient does well with this regimen and is able to get back home. Plan to discharge home with the following discharge instructions: Start taking dexamethasone 3 times a day x 5 days. Take your current medication regimen as previously prescribed. Follow-up with yourprimary care provider in 3 to 5 days for reevaluation of symptoms as needed. You can take Tylenol and/or ibuprofen as needed for any pain or discomfort. Please return to the emergency department for any new or worsening symptoms. Patient verbalized understanding had no further questions or concerns. All were agreeable with thisplan of care. Shared decision making: The results of pertinent diagnostic studies and exam findings were discussed. The patient's provisional diagnosis and plan of care were discussed with the patient and present family. The patient and/or present family expressed understanding of the diagnosis and plan. The nurse was instructed to provide written instructions and appropriate follow-up information. The patientunderstands their need and responsibility to obtain additional follow-up as instructed. The risks of medications administered and prescribed were discussed with the patient and family present. Code status: _Full code Assessment/Plan 1. Chronic back pain Ordered: Discharge Patient Orders: dexamethasone, 1 tabs, Oral, TID, X 5 days, # 15 tabs, 0 Refill(s), 07/29/24 17:57:00 EDT HYDROmorphone, 2 mg, IM, Injection, Once, PRN pain, First Dose: 07/24/24 17:56:00 EDT, Dispense From [place] [facility] [place]24/24 17:56:00 EDT Refresh vitals and sections below: Problem List/Past Medical History Ongoing Hep C w/ coma, chronic Historical No qualifying data Medications Inpatient Dilaudid, 2 mg= 2 mL, IM, Once, PRN Home Bentyl 10 mg oral capsule, 10 mg= 1 caps, Oral, TID, PRN, Not taking dexamethasone 4 mg oral tablet, 4 mg= 1 tabs, Oral, TID Medrol Dosepak 4 mg oral tablet, 1 [...] (1/2 pack or more)/day in last 30 (more content not included)...[facility] Summaryon [id number] Visit SummaryAmbulatory Visit Summary JERAD TRACY :1975 Visit Date:07/21/2024 Ambulatory Visit Instructions Your Diagnosis Edema Your Care Team Attending Physician - FLOR JONES Primary Care Physician - FLOR JONES This Is Your Medications List cyclobenzaprine (cyclobenzaprine 10 mg Tab) duloxetine (Cymbalta 60 mg Cap-DR) hydrOXYzine ibuprofen (ibuprofen 800 mg Tab) omeprazole (omeprazole 40 mg Cap-DR) ondansetron (Zofran 4 mg Tab) oxycodone (oxyCODONE 10 mg ER Tab) phentermine (Adipex-P 37.5 mg Tab) predniSONE (predniSONE 20 mg Tab) spironolactone (spironolactone 25 mg Tab) tirzepatide (Zepbound 2.5 mg/0.5 mL subcutaneous solution) Procedures Performed Hysterectomy (2010), History of cholecystectomy, Hysterectomy, lap x 7, Tonillectomy with adenoids. Discharge Vitals Heart Rate (Peripheral) 106 Blood Pressure 122/64 Height 160 cm Height 63 in Weight 126.6 kg Weight 279.105 lb BMI 49.45 What to do next Scheduled Follow-Up Appointments Saturday 11:00 AM EDT With: FLOR JONES Where: [facility] [place] [address] [address] [place] [address]- You Need to Complete the Following Echo Transthoracic Complete, 07/21/24, Routine, Order for future visit, Transport Mode: Ambulatory,Reason: Congestive Heart Failure, Edema CHF exacerbation, pp_set_radiology_subspecialty, [facility], [facility] Medications What How Much When Why Instructions New spironolactone (spironolactone 25 mg Tab) 1 Tablets By Mouth 2 times a day Edema Refills: 1 Pickup at [facility]/pharmacy #[id number] Unchanged cyclobenzaprine (cyclobenzaprine 10 mg Tab) 1 Tablets By Mouth 3 times a day as needed for for spasm Muscle spasm Unchanged duloxetine (Cymbalta 60 mg Cap-DR) 1 Capsules By Mouth Every day (do not crush or chew) Unchanged hydrOXYzine 25 Milligram Duration: 1 Days Unchanged ibuprofen (ibuprofen 800 mg Tab) 1 Tablets By Mouth 3 times a day Unchanged omeprazole (omeprazole 40 mg Cap-DR) 1 Capsules By Mouth Every day Unchanged ondansetron (Zofran 4 mg Tab) 1 Tablets By Mouth Every 8 hours as needed for Nausea/Vomiting Nausea Unchanged oxycodone (oxyCODONE 10 mg ER Tab) 1 Tablets By Mouth Every 12 hours as needed for severepain Unchanged phentermine (Adipex-P 37.5 mg Tab) 1 Tablets By Mouth Every day Obesity with sleep apnea RUTH (obstructive sleep apnea) Obesity Unchanged predniSONE (predniSONE 20 mg Tab) 2 Tablets By Mouth Every day Duration: 5 Days Unchanged tirzepatide (Zepbound 2.5 mg/ 0.5 mL subcutaneous solution) 2.5 Milligram Subcutaneous Every week RUTH (obstructive sleep apnea) Obesity with sleep apnea Pharmacy Information [facility]/pharmacy #[id number]: [address] [place], [place] [phone] Allergies Tylenol (Unknown) Vicodin (Hives) nabumetone (Rash) penicillin (Hives) Problems Ongoing - Any problem that you are currently receiving treatment for. Arthritis of first carpometacarpal joint of right hand Bipolar disorder Chronic back pain Chronic hepatitis C Closed fracture of trapezoidal bone of wrist COVID-19 Diarrhea Disease of liver Drug therapy finding Elevated blood pressure reading Encounter for screening mammogram for breast cancer Fatigue Migraine Morbid obesity with BMI of 45.0-49.9, adult Screening for cardiovascular condition Smoker Smoker Tendonitis of right wrist Weight gain Wellness examination Historical - Any problem that you are no longer receiving treatment for. Bipolar Continuous opioid dependence Hepatitis C Liver disease Lyme disease Migraines Patient Survey You may receive a survey via text or e-mail asking about your office visit. Please share your experience with us by completing your survey. We appreciate your feedback and thank you for choosing us for your care. [facility] Visit Summary JERAD TRACY :1975 Visit Date:07/21/2024 Ambulatory Visit Instructions Your Diagnosis Edema Your Care Team Attending Physician - FLOR JONES Primary Care Physician - FLOR JONES This Is Your Medications List cyclobenzaprine (cyclobenzaprine 10 mg Tab) duloxetine (Cymbalta 60 mg Cap-DR) hydrOXYzine ibuprofen (ibuprofen 800 mg Tab) omeprazole (omeprazole 40 mg Cap-DR) ondansetron (Zofran 4 mg Tab) oxycodone (oxyCODONE 10 mg ER Tab) phentermine (Adipex-P 37.5 mg Tab) predniSONE (predniSONE 20 mg Tab) spironolactone (spironolactone 25 mg Tab) tirzepatide (Zepbound 2.5 mg/0.5 mL subcutaneous solution) Procedures Performed Hysterectomy (2010), History of cholecystectomy, Hysterectomy, lap x 7, Tonillectomy with adenoids. Discharge Vitals Heart Rate (Peripheral) 106 Blood Pressure 122/64 Height 160 cm Height 63 in Weight 126.6 kg Weight 279.105 lb BMI 49.45 What to do next Scheduled Follow-Up Appointments Saturday 11:00 AM EDT With: FLOR JONES Where: [place] [address] [address] [place] [address]- You Need to Complete the Following Echo Transthoracic Complete, 07/21/24, Routine, Order for future visit, Transport Mode: Ambulatory,Reason: Congestive Heart Failure, Edema CHF exacerbation, pp_set_radiology_subspecialty, [facility] Medications What How Much When Why Instructions New spironolactone (spironolactone 25 mg Tab) 1 Tablets By Mouth 2 times a day Edema Refills: 1 Pickup at [facility]/pharmacy #[id number] Unchanged cyclobenzaprine (cyclobenzaprine 10 mg Tab) 1 Tablets By Mouth 3 times a day as needed for for spasm Muscle spasm Unchanged duloxetine (Cymbalta 60 mg Cap-DR) 1 Capsules By Mouth Every day (do not crush or chew) Unchanged hydrOXYzine 25 Milligram Duration: 1 Days Unchanged ibuprofen (ibuprofen 800 mg Tab) 1 Tablets By Mouth 3 times a day Unchanged omeprazole (omeprazole 40 mg Cap-DR) 1 Capsules By Mouth Every day Unchanged ondansetron (Zofran 4 mg Tab) 1 Tablets By Mouth Every 8 hours as needed for Nausea/Vomiting Nausea Unchanged oxycodone (oxyCODONE 10 mg ER Tab) 1 Tablets By Mouth Every 12 hours as needed for severepain Unchanged phentermine (Adipex-P 37.5 mg Tab) 1 Tablets By Mouth Every day Obesity with sleep apnea RUTH (obstructive sleep apnea) Obesity Unchanged predniSONE (predniSONE 20 mg Tab) 2 Tablets By Mouth Every day Duration: 5 Days Unchanged tirzepatide (Zepbound 2.5 mg/ 0.5 mL subcutaneous solution) 2.5 Milligram Subcutaneous Every week RUTH (obstructive sleep apnea) Obesity with sleep apnea Pharmacy Information [facility]/pharmacy #[id number]: [address] [place], [place] [phone] Allergies Tylenol (Unknown) Vicodin (Hives) nabumetone (Rash) penicillin (Hives) Problems Ongoing - Any problem that you are currently receiving treatment for. Arthritis of first carpometacarpal joint of right hand Bipolar disorder Chronic back pain Chronic hepatitis C Closed fracture of trapezoidal bone of wrist COVID-19 Diarrhea Disease of liver Drug therapy finding Elevated blood pressure reading Encounter for screening mammogram for breast cancer Fatigue Migraine Morbid obesity with BMI of 45.0-49.9, adult Screening for cardiovascular condition Smoker Smoker Tendonitis of right wrist Weight gain Wellness examination Historical - Any problem that you are no longer receiving treatment for. Bipolar Continuous opioid dependence Hepatitis C Liver disease Lyme disease Migraines Patient Survey You may receive a survey via text or e-mail asking about your office visit. Please share your experience with us by completing your survey. We appreciate your feedback and thank you for choosing us for your care. [facility] Medicine Office/Clinic Noteon [id number] Office/Clinic Note Chief Complaint Swelling in hands and feet HPI Staff complaints of ankles and hands are swollen -Pt went to the ER yesterday told her it was a delayed reaction for the antibiotic Onset: Yesterday morning Characteristics: swelling in both ankles, fingers and hands, pitting edema OTC tried: denies History of Present Illness Jerad is a 49 year old female who presents s/p ER visit yesterday. She started with fluid retention over the last 48 hours. Her weight was 266lbs in our office 07/15/2024, and today her weight is 279lbs. She feels like her legs and hands are swollen. I reviewed the ED documents - her BNP, troponin, and routine lab work was all WNL, EKG normal, and CXR normal. The ED speculated this was a late all ergic reaction after taking doxy for lyme (she completed this about a week ago). The only additional med change was the addition of oxycodone 10's per pain management within with last 2-3 weeks, however she reports she has been on this medication and dose in the past and didn't have an issue. I am going to order an echo and start a diuretic for 5 days. She will keep a record of her weight and monitor her BP. If she gets worse or no better, she will return to the ED. Staff HPI reviewed and accurate. Review of Systems PHQ Score Initial Depression Screen Score: 0 SCORE Physical Exam Vitals & Measurements HR: 106(Peripheral) BP: 122/64 SpO2: 96% HT: 160 cm HT: 63 in WT: 126.6 kg WT: 279.105 lb BMI: 49.45 +2 pitting edema to BLE. Mild hand/finger edema. Lungs clear, heart wnl Assessment/Plan 1. Edema, (R60.9: Edema, unspecified)Edema spironolactone x 5 days monitor weight and BP daily fu 1-2 weeks return to ED if no improvement/worsening symptoms echo ordered Ordered: spironolactone, 25 mg = 1 tab(s), Oral, BID, # 10 tab(s), Refills(s) 1, Pharmacy: [facility] #[id number], 160, cm, 07/21/24 9:58:00 EDT, Height/Length Dosing, 126.6, kg, 07/21/24 9:58:00 EDT, Weight Dosing Echo Transthoracic Complete 2. Morbid obesity with BMI of 45.0-49.9, adult (E66.01: Morbid (severe) obesity due to excess calories) on adipex and zepbound Body mass index [BMI] 45.0-49.9, adult (Z68.42: Body mass index [BMI] 45.0-49.9, adult) Orders: oxycodone, 5 mg = 1 tab(s), Oral, BID, PRN for pain, # 20 tab(s), Refills(s) 0, Pharmacy: [facility]/pharmacy #[id number], 160, cm, 06/23/24 9:23:00 EDT, Height/Length Dosing, 123.9, kg, 06/23/24 9:23:00 EDT, Weight Dosing Follow-up No qualifying data available Problem List/Past Medical History Ongoing Arthritis of first carpometacarpal joint of right hand Bipolar disorder Chronic back pain Chronic hepatitis C Closed fracture of trapezoidal bone of wrist COVID-19 Diarrhea Disease of liver Drug therapy finding Edema Elevated blood pressure reading Encounter for screening mammogram for breast cancer Fatigue Migraine Morbid obesity with BMI of 45.0-49.9, adult Screening for cardiovascular condition Smoker Smoker Tendonitis of right wrist Weight gain Wellness examination Historical Bipolar Continuous opioid dependence Hepatitis C Liver disease Lyme disease Migraines Procedure/Surgical History Hysterectomy (2010), History of cholecystectomy, Hysterectomy, lap x 7, Tonillectomy with adenoids. Medications Adipex-P 37.5 mg Tab, 37.5 mg= 1 tab(s), Oral, Daily, 2 refills cyclobenzaprine 10 mg Tab, 10 mg= 1 tab(s), Oral, TID, PRN, 1 refills Cymbalta 60 mg Cap-DR, 1 cap(s), Oral, Daily hydrOXYzine, 25 mg ibuprofen 800 mg Tab, 800 mg= 1 tab(s), Oral, TID omeprazole 40 mg Cap-DR, 40 mg= 1 cap(s), Oral, Daily, 3 refills oxyCODONE 10 mg ER Tab, 10 mg= 1 tab(s), Oral, q12hr, PRN predniSONE 20 mg Tab, 40 mg= 2 tab(s), Oral, Daily spironolactone 25 mg Tab, 25 mg= 1 tab(s), Oral, BID, 1 refills Zepbound 2.5 mg/0.5 mL subcutaneous solution, 2.5 mg, SubCutaneous, qWeek, 3 refills Zofran 4 mg Tab, 4 mg= 1 tab(s), Oral, q8hr, PRN, 1 refills Allergies Tylenol (Unknown) Vicodin (Hives) nabumetone (Rash) penicillin (Hives) Social History Alcohol - Denies Alcohol Use, 07/10/2012 Never., 06/18/2024 Substance Abuse - Denies Substance Abuse, 07/10/2012 Never., 06/18/2024 Past, Cocaine, 07/17/2023 Tobacco - High Risk, 12/07/2022 10 or more cigarettes (1/2 pack or more)/day in last 30 days Tobacco Use:. Ready to change: No., 07/21/2024 10 or more cigarettes (1/2 pack or more)/day in last 30 days Tobacco Use:., 03/18/2024 10 or more cigarettes (1/2 pack or more)/day in last 30 days Tobacco Use:. Never Smokeless Tobacco Use:. Cigarettes, Ready to change: Yes. Household tobacco concerns: Yes. Yes, 09/17/2023 Family History Acute myocardial infarction: Father. Alcoholism: Father. Anxiety: Mother. Cancer: Father and Grandparent. Depression: Mother. Diabetes mellitus: Grandparent. Drug addiction: Sister. Hypertension: Mother. Immunizations Vaccine Date Status hepatitis B adult vaccine 04/26/2023 R (more content not included)...Normal [facility] HospitalComment on above:Result Comment: Electronically Signed By: FLOR JONES\.rufino\Date and Time Signed: 07/21/24 10:21 EDTXR Chest Single Viewon [id number] Chest Single ViewExam Date/Time: 07/20/2024 19:47 EDT Reason for Exam: [...] Tubbs FINAL REPORT Dictated: 07/21/2024 8:00 am Francisco J Mccoy DO Signed (Electronic Signature): 07/21/2024 8:00 am Signed by: Francisco J Mccoy DO Transcribed by: KIERRA Technologist: MohinialOhiohealth Berger HospitalBMPon [id number] gap [Moles/Vol]11 mmol/LNormal6-16[facility] Comment on above:Performed By: #### [id number] #### [facility] [address] [place], [place] [address]Hcnorrp [Mass/Vol]8.2 mg/dLLow8.9-11.1FClermont County HospitalComment on above:Performed By: #### [id number] #### [facility] [address] [place], [place] [address]Whbserzi [Moles/Vol]101 mmol/QBquqbv925-804SmjibtOhiohealth Berger HospitalComment on above:Performed By: #### [id number] #### [facility] [address] [place], [place] [address]JI4 [Moles/Vol]27 mmol/BEdmppb68-35YpbfrzOhiohealth Berger Hospital Comment on above:Performed By: #### [id number] #### [facility] [address] [place], [place] [address]Ftsnribdkr [Mass/Vol]0.8 mg/dLNormal0.5-1.3FClermont County HospitalComment on above:Performed By: #### [id number] #### [facility] [address] [place], [place] [address]Waharxx [Mass/Vol]139 mg/aKWxisto72-669FvnepvOhiohealth Berger HospitalComment on above:Performed By: #### [id number] #### [facility] [address] [place], [place] [address]Wmeznejub [Moles/Vol]3.7 mmol/LNormal3.5-5.3FClermont County HospitalComment on above:Performed By: #### [id number] #### [facility] [address] [place], [place] [address]Bvjjhv [Moles/Vol]135 mmol/NLfbycv985-336EtwotyOhiohealth Berger HospitalComment on above:Performed By: #### [id number] #### [facility] [address] [place], [place] [address]Ltnv nitrogen [Mass/Vol]11 mg/dLNormal5-21[facility] HospitalComment on above:Performed By: #### [id number] #### [facility] [address] [place] [address]Fmrs nitrogen/Creatinine [Mass ratio]14 No VhwzyGhouei69-09 [facility] HospitalComment on above:Performed By: #### [id number] #### [facility] [address] [place] [address]AJGbf 52-19-9772Wttyetfebut peptide B (Bld) [Mass/Vol]58 pg/mL Normal5-80[facility] HospitalComment on above:Performed By: #### [id number] #### [facility] [address] [place] [address]QKI w/ Auto Diffon [id number]/100 WBC (Bld)0.4 %Normal 0.0-2.0[facility] HospitalComment on above:Performed By: #### [id number] #### [facility] [address] [place] [address]Aytqsplfx/Leukocytes Auto (Bld) [Pure # fraction]0.0 E9/LNormal 0.0-0.2FClermont County HospitalComment on above:Performed By: #### [id number] #### [facility] [address] [place] [address]Vbttbwwsdtl (Bld) [#/Vol]0.1 E9/LNormal0.0-0.5FClermont County HospitalComment on above:Performed By: #### [id number] #### [facility] [address] [place] [address]Dnkamhrhpey/100 WBC (Bld)2.0 %Normal0.0-8.0[facility] HospitalComment on above:Performed By: #### [id number] #### [facility] [address] [place] [address]Uueonjeudto distribution width (RBC) [Ratio]14.7 %High10.9-14.2 [facility] HospitalComment on above:Performed By: #### [id number] #### [facility] [address] [place], [place] [address]Etoslnlfbq (Bld) [Volume fraction]35.3 %Rxqkal86.0-46.0[facility] HospitalComment on above:Performed By: #### [id number] #### [facility] [address] [place], [place] [address]Xymbgevinj (Bld) [Mass/Vol]12.1 g/mKMkqyts53.0-16.0[facility] HospitalComment on above:Performed By: #### [id number] #### [facility] [address] [place] [address]Tysnczzhgfa (Bld) [#/Vol]2.1 E9/LNormal1.0-4.0[facility] HospitalComment on above:Performed By: #### [id number] #### [facility] [address] [place], [place] [address]Cjdjmblakqk/100 WBC (Bld)28.2 %Ighyod77.0-50.0[facility] HospitalComment on above:Performed By: #### [id number] #### [facility] [address] [place] [address]VYP (RBC) [Entitic mass]30.1 emWvprbl17.0-34.0[facility] HospitalComment on above:Performed By: #### [id number] #### [facility] [address] [place], [place] [address]SJBV (RBC) [Mass/Vol]34.2 g/oTGvntzz33.4-36.0[facility] HospitalComment on above:Performed By: #### [id number] #### [facility] [address] [place], [place] [address]SHB (RBC) [Entitic vol]88.0 oHTxqwyi72.0-100.0[facility] HospitalComment on above:Performed By: #### [id number] #### [facility] [address] [place] [address]Erulbqnqo (Bld) [#/Vol]0.7 E9/LNormal0.2-1.0[facility] HospitalComment on above:Performed By: #### [id number] #### [facility] [address] [place] [address]Wyidsmkgmol (Bld) [#/Vol]4.4 E9/LNormal2.0-7.5FClermont County HospitalComment on above:Performed By: #### [id number] #### [facility] [address] [place] [address]Ugehomyicmz/100 WBC (Bld)59.9 %Rkcwke67.0-75.0[facility] HospitalComment on above:Performed By: #### [id number] #### [facility] [address] [place] [address]Mwkrapbc278.0 E9/CFwynvm222.0-500.0[facility] Comment on above:Performed By: #### [id number] #### [facility] [address] [place] [address]Lrorailv mean volume (Bld) [Entitic vol]8.2 fLNormal6.4-10.8 [facility] HospitalComment on above:Performed By: #### [id number] #### [facility] [address] [place] [address]VIY (Bld) [#/Vol]4.0 E12/LLow4.3-5.9[facility] Comment on above:Performed By: #### [id number] #### [facility] [address] [place] [address]RRC corrected for nucl RBC Auto (Bld) [#/Vol]7.3 E9/LNormal 4.0-11.0[facility] HospitalComment on above:Performed By: #### [id number] #### [facility] [address] [place], [place] [address]JQSHZWHGVLlleoqx By: SYSTEM SYSTEM on 36-39-4771Iqdqlpky HS3.20 pg/mLLow10.10 - 27.10 pg/mLRemisol ChemComment on above:Interpretive Data: The 95% CI (Confidence Interval) PPV (Positive Predictive Value) for myocardial i nfarction in females is 38 pg/mL, in males 51 pg/mL. The results should be used in conjunction withclinical conditions of myocardial infarction. (Access High Sensitivity Troponin I Instructions For Use, [employer], October 2017)Anion gap [Moles/Vol]11 mmol/LNormal6 - 16 mEq/LRemisol ChemCalcium [Mass/Vol]8.2 mg/dLLow8.9 - 11.1 mg/dLRemisol ChemChloride [Moles/Vol]101 mmol/L Izzcgm500 - 111 mmol/LRemisol ChemCO2 [Moles/Vol]27 mmol/CYdptfd60 - 31 mmol/L Remisol ChemCreatinine [Mass/Vol]0.8 mg/dLNormal0.5 - 1.3 mg/dLRemisol ChemeGFR 91 mL/min/1.73 d9Bmpfva>=59mL/min/1.73 s5Xmvcxbg ChemGlucose [Mass/Vol]139 mg/dL Ijiqta32 - 199 mg/dLRemisol ChemPotassium [Moles/Vol]3.7 mmol/LNormal3.5 - 5.3 mmol/LRemisol ChemSodium [Moles/Vol]135 mmol/QMntszm400 - 145 mmol/LRemisol Chem Troponin HS3.30 pg/mLLow10.10 - 27.10 pg/mLRemisol ChemComment on above: Interpretive Data: The 95% CI (Confidence Interval) PPV (Positive Predictive Value) for myocardial infarction in females is 38 pg/mL, in males 51 pg/mL. The results should be used in conjunction withclinical conditions of myocardial infarction. (Access High Sensitivity Troponin I Instructions For Use, [employer], October 2017)Urea nitrogen [Mass/Vol]11 mg/dLNormal5 - 21 mg/dLRemisol ChemUrea nitrogen/Creatinine [Mass ratio]14 mg/hjAoeptb24 - 20Remisol ChemCHEMISTRY Ordered By: Deirdre Billings on [id number] peptide B (Bld) [Mass/Vol]58 pg/mLNormal5 - 80 pg/mLHARPER [facility] HemeManSSCOAGULATIONOrdered By: Deirdre Billings on 49-82-8434iYSL Coag (PPP) [Time]32.2 lZnybjt97.1 - 36.5 second(s) [facility] Auto CoagComment on above:Interpretive Data: Parameter 15 days - 4 weeks 1 - [...] the same coagulation reagent and instrumentation as [facility]. Currently there are no coagulation studies available worldwide for children to 14 days, andno normal ranges. Heparin therapeutic range (represented by Anti-Factor Xa activity of 0.2 - 0.4 U/mL) corresponds to PTT of 56.6 - 109.0 sec.INR Coag (PPP) [Relative time]0.99 {INR}Invalid Interpretation CodeHARPER COUNTY COMMUNITY [facility]OSP[facility] [place] Auto CoagComment on above:Interpretive Data: INR results are specifically intended to assess patients stabilized on long-term Anticoagulation therapy suggested INR s Less Intensive Anticoagulation 2.0 3.0 Conventional Range 3.0 4.5PT Coag (PPP) [Time]11.1 sNormal9.4 - 12.5 second(s) [facility] Auto CoagComment on above:Interpretive Data: 15 days - 4 weeks 1 - [...] the same coagulation reagent and instrumentation as [facility]. Currently there are no coagulation studies available worldwide for children to 14 days, andno normal ranges.ED Clinical Summaryon [id number] Clinical SummaryED Clinical Summary [place] [id number] ED Clinical Summary Person Information Name: JERAD TRACY Tasha/[facility] Age: 49 Years : 1975 Sex: Female Language: Malagasy PCP: FLOR JONES Marital Status: Visit Id: Visit Reason: Edema; Shortness of breath; SOB, RETAINING A LOT OF WATER, BACK PAIN Speciality: Acuity: 2 Enc Type: Emergency Med Service: Emergency Arrival: 07/20/2024 18:58:09 Discharge: 07/20/2024 22:06:46 LOS: 000 03:08 Checkin: 07/20/2024 18:58:09 Checkout: 07/20/2024 22:06:46 Dispo Type: Home (Routine DC) EVENTS: Event Name Event Status Request Date/Time Start Date/Time Complete Date/Time Arrive Complete 07/20/2024 18:58:09 07/20/2024 18:58:09 07/20/2024 18:58:09 Document Home Meds Request 07/20/2024 18:58:09 Triage Complete 07/20/2024 18:58:09 07/20/2024 19:06:01 07/20/2024 19:06:01 Bed Assign Complete 07/20/2024 18:59:55 07/20/2024 18:59:55 07/20/2024 18:59:55 Dr Exam Complete 07/20/2024 18:59:55 07/20/2024 19:04:20 07/20/2024 19:04:20 RN Exam Complete 07/20/2024 18:59:55 07/20/2024 19:28:10 07/20/2024 19:28:10 EKG Complete 07/20/2024 19:00:21 07/20/2024 19:05:50 Registration Complete 07/20/2024 19:04:20 07/20/2024 19:09:51 07/20/2024 19:09:51 Pending Labs Complete 07/20/2024 19:08:36 07/20/2024 21:24:10 Lab Complete 07/20/2024 19:08:36 07/20/2024 20:08:57 Patient Care Request 07/20/2024 19:08:36 RT Request 07/20/2024 19:08:36 X-Ray Complete 07/20/2024 19:08:36 07/20/2024 19:26:39 07/20/2024 19:47:53 Reg Complete Request 07/20/2024 19:09:51 Reg Bed Request Complete 07/20/2024 19:09:51 07/20/2024 19:09:51 07/20/2024 19:09:51 Pending Labs Complete 07/20/2024 19:27:01 07/20/2024 19:27:01 07/20/2024 19:53:47 Lab Complete 07/20/2024 19:27:01 07/20/2024 19:27:01 07/20/2024 19:53:47 Wet Read Request 07/20/2024 19:47:53 Meds Admin Complete 07/20/2024 19:57:44 07/20/2024 20:38:25 Pending Labs Complete 07/20/2024 20:03:36 07/20/2024 20:03:36 07/20/2024 20:03:36 Meds Admin Complete 07/20/2024 21:56:10 07/20/2024 22:05:02 Discharge Complete 07/20/2024 21:56:13 07/20/2024 22:06:51 07/20/2024 22:06:51 Transfer Complete 07/20/2024 22:06:51 07/20/2024 22:06:51 07/20/2024 22:06:51 [address] [place] [id number] PHYS DOC NOTES: MEDICAL INFORMATION: Prescriptions Given: New Medications [id number], [address] [place] [id number], [phone] predniSONE (predniSONE 20 mg Tab) 2 Tablets By Mouth every day for 5 Days. Refills: 0. Medications to Continue with No Changes Other Medications cyclobenzaprine (cyclobenzaprine 10 mg Tab) 1 Tablets By Mouth 3 times a day as needed for spasm. Refills: 1. duloxetine (Cymbalta 60 mg Cap-DR) 1 Capsules By Mouth every day. (do not crush or chew). hydrOXYzine 25 Milligram for 1 Days. omeprazole (omeprazole 40 mg Cap-DR) 1 Capsules By Mouth every day. Refills: 3. ondansetron (Zofran 4 mg Tab) 1 Tablets By Mouth every 8 hours as needed Nausea/Vomiting. Refills: 1. oxycodone (oxyCODONE 10 mg ER Tab) 1 Tablets By Mouth every 12 hours as needed severe pain. phentermine (Adipex-P 37.5 mg Tab) 1 Tablets By Mouth every day. Refills: 2. tirzepatide (Zepbound 2.5 mg/0.5 mL subcutaneous solution) 2.5 Milligram Subcutaneous every week. Refills: 3. PATIENT EDUCATION INFORMATION: Instructions: Drug Allergy; Peripheral Edema Follow up: With: Address: When: KRISTAN LAU In 3 days 07/23/2024 Comments: Call the office of your primary [...] immediate medical attention if you develop: worsening shortness of breath, difficulty breathing, chest pain, nausea, vomiting, weakness, numbness, tingling, excessive sweating, loss of motion inyour arms or legs, or any new or worsening symptoms. DIAGNOSIS: Peripheral edemaNormalFisher Sal Medical CenterED Note-Physicianon 07-20-2024 ED Note-PhysicianED Note-Physician Basic Information Time Seen: Nikhil Tubbs DO 07/20/2024 19:04 Chief Complaint finished tx for Lyme dx recently. Today woke up feeling swollen all over. C/o sob and peripheral edema. joints ache History of Present Illness 49-year-old female to the emergency department with chief complaint of shortness of breath. Patientreports she woke up today feeling more swollen all over than typical. She reports that her legs andher hands look swollen to her. She reports she feels mildly short of breath. She was recently treated for Lyme disease and completed a course of doxycycline. She is otherwise at her baseline health. She denies any chest pain. Review of Systems A 10 point review of systems is negative except as noted above Medical and Surgical History: Reviewed and noted Social history: Lives at home Tobacco: Denies Physical Exam Vitals & Measurements T: 36.4 ???C(Oral) HR: 103(Peripheral) RR: 22 BP: 122/75 SpO2: 98% HT: 160 cm WT: 129.4 kg BMI: 50.55 VITALS: I have reviewed the triage vital signs. GENERAL: Obese adult female in no distress. NEURO: Alert and oriented. Moves all [...] bilaterally in the upper and lower extremity. +1 edema to LE BLT. PULM: Lungs clear to auscultation in all gonzalez. No wheezes, rales, or rhonchi. No conversational dyspnea. No splinting, stridor, or accessory muscle use. GI/: Abdomen is soft and non-tender. Normoactive bowel sounds. EXTREMITIES: Symmetric muscle bulk. No joint swelling. No clubbing, cyanosis, or deformity. SKIN: Warm and dry. Normal turgor. No rash or lesions appreciated. PSYCH: Mood, affect, and interaction is appropriate to the setting. Medical Decision Making 49-year-old female to the emergency department chief complaint of peripheral edema and shortness ofbreath. Vital stable, the patient is afebrile. She has maybe some trace mild edema about the hands and lower extremities. Her lungs are clear to auscultation. She is in no distress. Cardiac workup with a BNP and chest x-ray is ordered. EKG without evidence of ischemia or arrhythmia. CBC, chemistry, BNP and troponin are within normal limits. Chest x-ray without acute findings. Patient reexamined. No change. She remained stable from a respiratory standpoint. Discussed peripheral edema versus allergic reaction. She does reports she has some diffuse joint pain as well. Will treat with prednisone at this time. She has follow-up with her doctor tomorrow. Will defer to them after further discussion with the patient and seeing how she responds to prednisone to decide if this truly represents an allergic reaction to her doxycycline. This certainly was not anaphylaxis or a severe reaction. Patient agrees with this plan. Return precautions were discussed. All questions were answered. The patient was discharged home. Assessment/Plan Peripheral edema (R60.0: Localized edema) Orders: B-Type Natriuretic Peptide Basic Metabolic Panel CBC w/ Auto Diff ED Cardiac Monitoring eGFR Oxygen Saturation Oxygen Therapy PT & PTT Saline Lock Insert Troponin 0 Hr. Troponin 1 Hr. XR Chest Single View Disposition Plan Patient Discharge Condition Stable Discharge Disposition Home Discharge Prescription List Prescriptions predniSONE 20 mg Tab, 40 mg= 2 tab(s), Oral, Daily Follow-up With When Contact Information KRISTAN LAU In 3 days 07/23/2024 EDT Additional Instructions: Call the office of your [...] immediate medical attention if you develop: worsening shortness of breath, difficulty breathing, chest pain, nausea, vomiting, weakness, numbness, tingling, excessive sweating, loss of motion in your arms or legs, or any new or worsening symptoms. Patient Education Drug Allergy Peripheral Edema Problem List/Past Medical History Ongoing Arthritis of first carpometacarpal joint of right hand Bipolar disorder Chronic back pain Chronic hepatitis C Closed fracture of trapezoidal bone of wrist COVID-19 Diarrhea Disease of liver Drug therapy finding [place] (more content not included)...[facility] HospitalComment on above:Result Comment: Electronically Signed By: Nikhil Tubbs DO\.br\Date and Time Signed: 07/20/24 22:51 EDTED Patient Summaryon [id number] Patient Summary ED Patient Summary [place] [id number] Patient Discharge Instructions Person Information Name: JERAD TRACY Age: 49 Years Arrival Date: 07/20/2024 18:58:09 Discharge Diagnosis: Peripheral edema Primary Care Physician: FLOR JONES Provider Information Primary Provider: Nikhil Tubbs DO Advanced Dietetic Intern:None The exam and treatment you received in the Emergency Department were for an urgent problem and are not intended as complete care. It is important that you follow up with a doctor, nurse practitioner,or physician???s construction assistant for ongoing care. If your symptoms become worse or you do not improve asexpected and you are unable to reach your usual health care provider, you should return to the Emergency Department. We are available 24 hours a day. JERAD TRACY has been given the following list of patient education materials, prescriptions andfollow-up instructions: Follow-up Instructions: With: Address: When: KRISTAN LAU In 3 days 07/23/2024 Comments: Call the office of your primary [...] immediate medical attention if you develop: worsening shortness of breath, difficulty breathing, chest pain, nausea, vomiting, weakness, numbness, tingling, excessive sweating, loss of motion inyour arms or legs, or any new or worsening symptoms. In the event that this physician does not participate in your insurance network, please consult with your insurance company to find a nearby participating provider. Patient Education Materials: Drug Allergy; Peripheral Edema A MESSAGE TO ALL PATIENTS REGARDING OPIOIDS PRESCRIPTION OPIOIDS: WHAT YOU NEED TO KNOW Prescription opioids can be used to help relieve nbhfunir-tt-midvyp pain and are often prescribed following a [...] manage your pain that don???t involve prescription (more content not included)...[facility] HospitalHEMATOLOGYOrdered By: SYSTEM SYSTEM on 93-35-2344Srvfvmhhr/100 WBC (Bld)0.4 %Normal0.0 - 2.0 % Remisol HemeBasophils/Leukocytes Auto (Bld) [Pure # fraction]0.0 E9/LNormal0.0 - 0.2 E9/LRemisol HemeEosinophils (Bld) [#/Vol]0.1 E9/LNormal0.0 - 0.5 E9/LRemisol HemeEosinophils/100 WBC (Bld)2.0 %Normal0.0 - 8.0 %Remisol HemeErythrocyte distribution width (RBC) [Ratio]14.7 %High10.9 - 14.2 %Remisol HemeHematocrit (Bld) [Volume fraction]35.3 %Uztbic10.0 - 46.0 %Remisol HemeHemoglobin (Bld) [Mass/Vol]12.1 g/kXQznjiu71.0 - 16.0 gm/dLRemisol HemeLymphocytes (Bld) [#/Vol] 2.1 E9/LNormal1.0 - 4.0 E9/LRemisol HemeLymphocytes/100 WBC (Bld)28.2 %Normal 14.0 - 50.0 %Remisol HemeMCH (RBC) [Entitic mass]30.1 diYekeqy68.0 - 34.0 pg Remisol HemeMCHC (RBC) [Mass/Vol]34.2 g/xGVpcyxg29.4 - 36.0 gm/dLRemisol HemeMCV (RBC) [Entitic vol]88.0 oJAvqoll16.0 - 100.0 fLRemisol HemeMonocytes (Bld) [#/Vol]0.7 E9/LNormal0.2 - 1.0 E9/LRemisol HemeMonocytes/100 WBC (Bld)9.5 % Normal4.0 - 14.0 %Remisol HemeNeutrophils (Bld) [#/Vol]4.4 E9/LNormal2.0 - 7.5 E9/LRemisol HemeNeutrophils/100 WBC (Bld)59.9 %Lnkikq54.0 - 75.0 %Remisol Heme Gghpqsyb276.0 E9/THykxdj454.0 - 500.0 E9/LRemisol HemePlatelet mean volume (Bld) [Entitic vol]8.2 fLNormal6.4 - 10.8 fLRemisol HemeRBC (Bld) [#/Vol]4.0 E12/LLow 4.3 - 5.9 E12/LRemisol HemeWBC corrected for nucl RBC Auto (Bld) [#/Vol]7.3 E9/L Normal4.0 - 11.0 E9/LRemisol HemePT & PTTon [id number] Coag (PPP) [Time]32.2 second(s)Loksom32.1-36.5Fisher [facility] Shock Trauma CenterComment on above:Result Comment: Parameter 15 days - 4 weeks 1 - [...] the same coagulation reagent and instrumentation as [facility]. Currently there are no coagulation studies available worldwide for children to 14 days, andno normal ranges. Heparin therapeutic range (represented by Anti-Factor Xa activity of 0.2 - 0.4 U/mL) corresponds to PTT of 56.6 - 109.0 sec.Performed By: #### [id number] #### [facility] [address], [place] [address]HSH Coag (PPP) [Relative time]0.99 {INR}Invalid Interpretation CodeTommyer R Adams Cowley Shock Trauma CenterComment on above:Result Comment: INR results are specifically intended to assess patients stabilized on long-term Anticoagulation therapy suggested INR???s ???Less Intensive Anticoagulation??? 2.0 ??? 3.0 Conventional Range 3.0 ??? 4.5Performed By: #### [id number] #### [facility] [address] [place], [place] [address]TD Coag (PPP) [Time]11.1 second(s)Normal9.4-12.5[facility] Shock Trauma CenterComment on above:Result Comment: 15 days - 4 weeks 1 - [...] the same coagulation reagent and instrumentation as [facility]. Currently there are no coagulation studies available worldwide for children to 14 days, andno normal ranges.Performed By: #### [id number] #### [facility] [address] [place], [place] [address]Kqillznf 0 Hr.on 94-80-3577Rcwkvdkg HS3.30 pg/mLLow10.10-27.10 [facility] HospitalComment on above:Result Comment: The 95% CI (Confidence Interval) PPV (Positive Predictive Value) for myocardial infarction in females is 38 pg/mL, in males 51 pg/mL. The results should be used in conjunction with clinical conditions of myocardial infarction. (Access High Sensitivity Troponin I Instructions For Use, [employer], October 2017)Performed By: #### [id number] #### [facility] [address] [place], [place] [address]Aanfqnkw 1 Hr.on 83-36-1363Aekmeesq HS3.20 pg/mLLow10.10-27.10 [facility] HospitalComment on above:Order Comment: 1Result Comment: The 95% CI (Confidence Interval) PPV (Positive Predictive Value) for myocardial infarction in females is 38 pg/mL, in males 51 pg/mL. The results should be used in conjunction with clinical conditions of myocardial infarction. (Access High Sensitivity Troponin I Instructions For Use, [employer], October 2017)Performed By: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 38-53-5527Eruwrzavx/100 WBC (Bld)0.7 %Normal.C[facility] Clinic Orthopedic CenterComment on above:Performed By: #### CBC, HEPATIC, BMP, LIPASE #### [facility] [address] [place] [address] USABenzodiazepines Screen Ql (U)Ordered By: Mora Veliz on 42-54-7403Tzhzrgxftaxvsxs Ql (U)Benzodiazepines [Presence] in Urine by Screen methodNegativeCrystal Clinic Orthopedic CenterBenzodiazepines Ql (U)Negative NegativeCrystal Clinic Orthopedic CenterBenzoylecgonine [Presence] in Urine by Screen methodOrdered By: Mora Veliz on 44-34-9924Luugelezimjfjph Screen Ql (U)Benzoylecgonine [Presence] in Urine by Screen methodNegativeCrystal Clinic Orthopedic CenterBenzoylecgonine Screen Ql (U)NegativeNegativeCrystal Clinic Orthopedic CenterBilirubin Test strip Ql (U)Ordered By: Mora Veliz on 94-82-0531Jgxkqxwru Ql (U)Bilirubin.total [Presence] in Urine by Test strip NegativeCrystal Clinic Orthopedic CenterBilirubin Ql (U)NegativeNegative [facility] Orthopedic CenterBilirubin.direct [Mass/volume] in Serum or PlasmaOrdered By: Mora Veliz on 47-50-3149Nzjkwoyth.direct [Mass/Vol] Bilirubin.direct [Mass/volume] in Serum or Plasma0.03-0.18FAdena Health SystemBilirubin.direct [Mass/Vol]0.10 mg/dL0.03-0.18FAdena Health SystemBilirubin.total [Mass/volume] in Serum or PlasmaOrdered By: Mora Veliz on 85-20-9121Yuhxjsjsi [Mass/Vol]Bilirubin.total [Mass/volume] in Serum or Plasma0.3-1.0C[facility] Clinic Orthopedic CenterBilirubin [Mass/Vol]0.3 mg/dLNormal0.3-1.0[facility] Orthopedic CenterCommclaren northern [place] on above:Performed By: #### CBC, HEPATIC, BMP, LIPASE #### [facility] [address] [place] [address] USACalcium [Mass/volume] in Serum or PlasmaOrdered By: oMra Veliz on 00-12-7413Ychnboj [Mass/Vol]Calcium [Mass/volume] in Serum or Plasma8.6-10.3FAdena Health SystemCalcium [Mass/Vol]8.6 mg/dLNormal 8.6-10.3FAdena Health SystemComment on above:Performed By: #### CBC, HEPATIC, BMP, LIPASE #### [facility] [address] [place] [address] USACannabinoids [Presence] in Urine by Screen methodOrdered By: Mora Veliz on 69-29-3279Ljiqnaoimenb Screen Ql (U)Cannabinoids [Presence] in Urine by Screen methodNegRiverview Health Institute Comment on above:These are unconfirmed results and should not be used for legal purposes. Drug Cut-Off Concentration: AMPH 1000 ng/mL AKTELYN 200 ng/mL PRINCE 200 ng/mL COCM 300 ng/mL OP 300 ng/mL PCP 25 ng/mL THC 20 ng/mLCannabinoids Screen Ql (U)NegativeNegRiverview Health InstituteComment on above:These are unconfirmed results and should not be used for legal purposes. Drug Cut-Off Concentration: AMPH 1000 ng/mL KATELYN 200 ng/mL PRINCE 200 ng/mL COCM 300 ng/mL OP 300 ng/mL PCP 25 ng/mL THC 20 ng/mLCarbon dioxide, total [Moles/volume] in Serum or PlasmaOrdered By: Mora Veliz on 38-49-1958WL2 [Moles/Vol]Carbon dioxide, total [Moles/volume] in Serum or Geufvs45.0-31.0C[facility] Clinic Orthopedic CenterCO2 [Moles/Vol]27.0 mmol/ORajmmb75.0-31.0[facility] Comment on above:Performed By: #### CBC, HEPATIC, BMP, LIPASE #### [facility] [address] [place] [address] USAChloride [Moles/volume] in Serum or PlasmaOrdered By: Mora Veliz on 59-99-4876Caxqiqlg [Moles/Vol]Chloride [Moles/volume] in Serum or Kwjlom89-290RttlbivexCrystal Clinic Orthopedic CenterChloride [Moles/Vol]106 mmol/L Wfqtel68-250GycpjsrtpCrystal Clinic Orthopedic CenterComment on above:Performed By: #### CBC, HEPATIC, BMP, LIPASE #### [facility] [address] [place] [address] USAColor Auto (U)Ordered By: Mora Veliz on 07-11-2024 Color (U)Color of Urine by AutoYellowCrystal Clinic Orthopedic CenterColor of Urine by AutoOrdered By: Mora Veliz on 83-15-1632Msipp (U)Light-yellowNormal YellowCrystal Clinic Orthopedic CenterComment on above:Order Comment: Name Collection Type:: Clean-Voided MidstreamPerformed By: #### ADDONUAPLUS #### [place] [address] USAComplete Blood Count Auto Diffon 02-87-4376Rayb Corpuscular HGB Conc33.7 g/xBJwarmo30.0-35.0The Firsthealth Physician GroupComment on above:Performed By: #### CBC, HEPATIC, BMP, LIPASE #### [place] [address] USAMonocytes/100 WBC (Bld)18.13 %Normal0.00-20.00The Firsthealth Physician GroupComment on above:Performed By: #### CBC, HEPATIC, BMP, LIPASE #### [place] [address] USANRBC%0.1 /100{WBC}Normal0-0.5The [facility] Comment on above:Performed By: #### CBC, HEPATIC, BMP, LIPASE #### [place] [address] USACreatinine [Mass/volume] in Serum or PlasmaOrdered By: Mora Veliz on 54-07-6720Spnzlrjgar [Mass/Vol]Creatinine [Mass/volume] in Serum or Plasma0.60-1.20C[facility] Orthopedic CenterCreatinine [Mass/Vol] 0.87 mg/dLNormal0.60-1.20C[facility] Orthopedic CenterComment on above: Performed By: #### CBC, HEPATIC, BMP, LIPASE #### [place] [address] USACrystals.amorphous [Presence] in Urine by Computer assisted methodOrdered By: Mora Veliz on 84-18-7190Hbyoaykq.amorphous Computer assisted Ql (U)Crystals.amorphous [Presence] in Urine by Computer assisted methodCrystal Clinic Orthopedic CenterCrystals.amorphous Computer assisted Ql (U)3+ [HPF][facility] Clinic Orthopedic CenterDipstick and Microscopic on 31-17-1007Jgfoyxsrm Crystal,Urine3+NormalThe Firsthealth Physician GroupComment on above:Order Comment: Name Collection Type:: Clean-Voided MidstreamPerformed By: #### ADDONUAPLUS #### [facility] [address] [place] [address] USABacteria,UrineNone SeenNormalNone SeenThe Firsthealth Physician GroupComment on above:Order Comment: Name Collection Type:: Clean- Voided MidstreamPerformed By: #### ADDONUAPLUS #### [facility] [address] [place] [address] USABilirubin,UrineNegativeNormalNegativeThe Firsthealth Physician GroupComment on above:Order Comment: Name Collection Type:: Clean- Voided MidstreamPerformed By: #### ADDONUAPLUS #### [facility] [address] [place] [address] USAGlucose Ql (U)NormalNormalNormalThe Firsthealth Physician GroupComment on above:Order Comment: Name Collection Type:: Clean-Voided MidstreamPerformed By: #### ADDONUAPLUS #### [facility] [address] [place] [address] USAHyaline Casts,UrineNoneNormal0-8The Firsthealth Physician GroupComment on above:Order Comment: Name Collection Type:: Clean-Voided MidstreamPerformed By: #### ADDONUAPLUS #### [facility] [address] [place], [place] [id number] USAMucus,UrineRareNormalThe Firsthealth Physician GroupComment on above:Order Comment: Name Collection Type:: Clean-Voided MidstreamResult Comment: PERFORMED BY: [place] [address] PATHOLOGIST HUC VIVEK HARDIN M.D.Performed By: #### ADDONUAPLUS #### [facility] [address] [place] [address] USANitrite,UrineNegativeNormalNegativeThe Firsthealth Physician GroupComment on above:Order Comment: Name Collection Type:: Clean-Voided MidstreamPerformed By: #### ADDONUAPLUS #### [place] [address] USAOccult Blood,UrineNegativeNormalNegativeThe Firsthealth Physician GroupComment on above:Order Comment: Name Collection Type:: Clean- Voided MidstreamResult Comment: PERFORMED BY: [place] [address] PATHOLOGIST HUC VIVEK HARDIN M.D.Performed By: #### ADDONUAPLUS #### [place] [address] USAProtein,UrineNegativeNormalNegativeThe Firsthealth Physician GroupComment on above:Order Comment: Name Collection Type:: Clean-Voided MidstreamPerformed By: #### ADDONUAPLUS #### [place] [address] USARBC,Otmxw2-9Wuvdpn1-3Fnf Firsthealth Physician GroupComment on above:Order Comment: Name Collection Type:: Clean-Voided MidstreamPerformed By: #### ADDONUAPLUS #### [place] [address] USASpecificy [place],Urine1.[address]Pum[address]y8.001-1.030The Firsthealth Physician GroupComment on above:Order Comment: Name Collection Type:: Clean- Voided MidstreamPerformed By: #### ADDONUAPLUS #### [place] [address] USASquamous Epithelial Cell,Eghxa2-6Svospq1-9Dhg First[facility] Physician GroupComment on above:Order Comment: Name Collection Type:: Clean- Voided MidstreamPerformed By: #### ADDONUAPLUS #### [place] [address] USAUrobilinogen,UrineNormalNormalNormalThe Firsthealth Physician GroupComment on above:Order Comment: Name Collection Type:: Clean- Voided MidstreamPerformed By: #### ADDONUAPLUS #### [place] [address] USAWBC,Hidpo4-7Ipazpn9-3Ojt First[facility] Physician GroupComment on above:Order Comment: Name Collection Type:: Clean-Voided MidstreamPerformed By: #### ADDONUAPLUS #### [place] [address] USADrug Screen,Urineon 61-49-7618Dfqthqboqyq Screen,Urine NegativeNormalNegativeThe Firsthealth Physician GroupComment on above:Performed By: #### URDS #### [place] [address] USABarbiturate Screen,UrineNegativeNormalNegativeThe Firsthealth Physician GroupComment on above:Performed By: #### URDS #### [place] [address] USABenzodiazepines Screen,UrineNegativeNormalNegativeBaptist Medical Center Nassau Physician GroupComment on above:Performed By: #### URDS #### [place] [address] USACannabinoid Screen,UrineNegativeNormalNegativeBaptist Medical Center Nassau Physician GroupComment on above:Result Comment: These are unconfirmed results and should not be used for legal purposes. Drug Cut-Off Concentration: AMPH 1000 ng/mL KATELYN 200 ng/mL PRINCE 200 ng/mL COCM 300 ng/mL OP 300 ng/mL PCP 25 ng/mL THC 20 ng/mL PERFORMED BY: [place] [address] PATHOLOGIST HUC VIVEK HARDIN M.D.Performed By: #### URDS #### [place] [address] USACocaine Screen,UrineNegativeNormalNegativeBaptist Medical Center Nassau Physician GroupComment on above:Performed By: #### URDS #### [address] [place] [address] USAOpiate Screen,UrineNegativeNormalNegativeBaptist Medical Center Nassau Physician GroupComment on above:Performed By: #### URDS #### [facility] [address] [place] [address] USAPhencyclidine Screen,UrineNegativeNormalNegativeBaptist Medical Center Nassau Physician GroupComment on above:Performed By: #### URDS #### [facility] [address] [place] [address] USAECG 12 lead ECGon 48-77-3467EOK 12 lead ECGST[facility] [place] [address] [place] [address] Electrocardiograph Report Signed Patient: Jerad Tracy MR#: [id number] 49 : 1975 Acct:[id number] Age/Sex: 49 / F ADM Date: 07/11/24 Loc: ER Room: Type: [facility] ER Attending Dr: Ordering Provider: Mora Veliz MD Date of Service: 07/11/24 ECG/ECG 12 lead ECG: Abdominal Pain Copies to: Test Reason : Blood Pressure : */* mmHG Vent. Rate : 101 BPM Atrial Rate : 101 BPM P-R Int : 118 ms QRS Dur : 86 ms QT Int : 372 ms P-R-T Axes : 69 72 68 degrees QTcB Int : 482 ms Sinus tachycardia Otherwise normal ECG When compared with ECG of 05-Oct-2023 17:38, Criteria for Septal infarct are no longer present Confirmed by MORA VELIZ MD ([id number]) on 07/12/2024 1:18:10 AM Referred By: Electronically Signed By: MORA VELIZ MD Transcribed By: MUS Signed By Mora Veliz MD 06/24 [address]118[facility] Physician GroupEosinophils Auto (Bld) [#/Vol] Ordered By: Mora Veliz on 87-05-1840Cfzdjyabswy (Bld) [#/Vol]Automated eosinophil count0.0-0.45[facility] Orthopedic CenterEosinophils [#/volume] in Blood by Automated countOrdered By: Mora Veliz on 26-03-8423Ltmkaaomhns (Bld) [#/Vol]0.2 10*3/uLNormal0.0-0.45[facility] Orthopedic CenterComment on above:Performed By: #### CBC, HEPATIC, BMP, LIPASE #### [facility] [address] [place] [address] USAEosinophils/100 WBC Auto (Bld)Ordered By: Mora Veliz on 38-78-4686Sjtlciytetj/100 WBC (Bld)Automated eosinophil %.[facility] Orthopedic CenterEosinophils/100 leukocytes in Blood by Automated countOrdered By: Mroa Veliz on 65-65-2075Gmxfnrnkjcn/100 WBC (Bld)2.3 %Normal.[facility] Orthopedic CenterComment on above:Performed By: #### CBC, HEPATIC, BMP, LIPASE #### [facility] [address] [place] [address] USAEpithelial cells.squamous [#/area] in Urine sediment by Automated countOrdered By: Mora Veliz on 80-20-6375Ymyiiupapo cells.squamous Auto (Urine sed) [#/Area]Epithelial cells.squamous [#/area] in Urine sediment by Automated count0-2FAdena Health SystemEpithelial cells.squamous Auto (Urine sed) [#/Area]1-2 [HPF]0-2FAdena Health System Erythrocyte distribution width Auto (RBC) [Ratio]Ordered By: Mora Veliz on 07-80-8532Yvndxxsybzu distribution width (RBC) [Ratio]Erythrocyte distribution width [Ratio] by Automated count11.9-15.3FAdena Health System Erythrocyte distribution width [Ratio] by Automated countOrdered By: Mora Veliz on 71-97-8516Mfayzbcoyzf distribution width (RBC) [Ratio]14.8 %Normal 11.9-15.3FAdena Health SystemComment on above:Performed By: #### CBC, HEPATIC, BMP, LIPASE #### [facility] [address] [place] [address] USAErythrocytes [#/area] in Urine sediment by Automated count Ordered By: Mora Veliz on 84-85-4731PID Auto (Urine sed) [#/Area] Erythrocytes [#/area] in Urine sediment by Automated count0-4FAdena Health SystemRBC Auto (Urine sed) [#/Area]1-2 [HPF]0-4Firelands Regional Medical CenterErythrocytes [#/volume] in Blood by Automated countOrdered By: Mora Veliz on 94-02-1460UYY (Bld) [#/Vol]4.55 10*6/uLNormal3.60-5.00 [facility]opedic CenterComment on above:Performed By: #### CBC, HEPATIC, BMP, LIPASE #### [facility] [address] [place] [id number] USAGlobulin Calc (S) [Mass/Vol]Ordered By: Mora Veliz on 39-38-8262Bbcfhbeq (S) [Mass/Vol]Serum globulin measurement by calculation (mass/volume)[facility] Orthopedic CenterGlucose [Mass/volume] in Serum or PlasmaOrdered By: Mora Veliz on 76-26-9561Umhwdnk [Mass/Vol]Glucose [Mass/volume] in Serum or Bowxai46-117ZfyrqpogqCrystal Clinic Orthopedic CenterComment on above:ADA recommended reference rangeRandom Glucose Reference Range is dependent on time and content of last meal. Glucose of more than 200 mg/dL in a nonstressed, ambulatory subject supports the diagnosisof Diabetes Mellitus. Glucose [Mass/Vol]99 mg/eWLwcfez49-024MovjxzrcwCrystal Clinic Orthopedic CenterComment on above:ADA recommended reference rangeRandom Glucose Reference Range is dependent on time and content of last meal. Glucose of more than 200 mg/dL in a nonstressed, ambulatory subject supports the diagnosisof Diabetes Mellitus. Result Comment: Random Glucose Reference Range is dependent on time and content of last meal. Glucose of more than 200 mg/dL in a nonstressed, ambulatory subject supports the diagnosis of Diabetes Mellitus. ADA recommended reference rangePerformed By: #### CBC, HEPATIC, BMP, LIPASE #### [facility] [address] [place] [id number] USAGlucose [Mass/volume] in Urine by Test stripOrdered By: Mora Veliz on 15-69-6940Zlsurat Test strip (U) [Mass/Vol]Glucose [Mass/volume] in Urine by Test stripNoUniversity Hospitals Samaritan Medical Center Glucose Test strip (U) [Mass/Vol]Normal mg/dLNoUniversity Hospitals Samaritan Medical CenterHematocrit Auto (Bld) [Volume fraction]Ordered By: Mora Veliz on 95-44-4324Lsrivfhbsg (Bld) [Volume fraction]Hematocrit [Volume Fraction] of Blood by Automated count34.0-46.4FAdena Health SystemHematocrit [Volume Fraction] of Blood by Automated countOrdered By: Mora Veliz on 03-34-0934Wkwqnycxbz (Bld) [Volume fraction]40.0 %Zvodrv34.0-46.4FAdena Health SystemComment on above:Performed By: #### CBC, HEPATIC, BMP, LIPASE #### [facility] [address] [place] [address] USAHemoglobin Test strip Ql (U)Ordered By: Mora Veliz on 78-57-0602Rauqdmsufe Ql (U)Hemoglobin [Presence] in Urine by Test stripNegative [facility]opedic CenterHemoglobin Ql (U)NegativeNegativeCrystal Clinic Orthopedic CenterHemoglobin [Mass/volume] in BloodOrdered By: Mora Veliz on 25-06-2602Uwyzvldljd (Bld) [Mass/Vol]Hemoglobin [Mass/volume] in Blood 11.8-15.4FAdena Health SystemHemoglobin (Bld) [Mass/Vol]13.5 g/dL Szgozy91.8-15.4FAdena Health SystemComment on above:Performed By: #### CBC, HEPATIC, BMP, LIPASE #### [facility] [address] [place] [address] USAHepatic Panelon 79-67-5060Pmqfdbf [Mass/Vol]4.0 g/dLNormal 3.5-5.7The Firsthealth Physician GroupComment on above:Performed By: #### CBC, HEPATIC, BMP, LIPASE #### [facility] [address] [place] [address] USABilirubin,Indirect0.2 mg/dLNormalThe Firsthealth Physician GroupComment on above:Performed By: #### CBC, HEPATIC, BMP, LIPASE #### [facility] [address] [place] [address] USABilirubin.indirect [Mass/Vol]0.10 mg/dLNormal0.03-0.18The Firsthealth Physician GroupComment on above:Performed By: #### CBC, HEPATIC, BMP, LIPASE #### [facility] [address] [place] [address] USAHyaline casts [#/area] in Urine sediment by Automated countOrdered By: Mora Veliz on 25-35-4671Nfyblvw casts Auto (Urine sed) [#/Area]Hyaline casts [#/area] in Urine sediment by Automated count0-8[facility] Orthopedic CenterHyaline casts Auto (Urine sed) [#/Area]None [LPF]0-8 [facility]opedic CenterKetones Test strip Ql (U)Ordered By: Mora Veliz on 02-71-2733Stvcpvm Ql (U)Ketones [Presence] in Urine by Test strip NegativeCrystal Clinic Orthopedic CenterKetones [Presence] in Urine by Test stripOrdered By: Mora Veliz on 52-44-7861Maidral Ql (U)NegativeNormal NegativeCrystal Clinic Orthopedic CenterComment on above:Order Comment: Name Collection Type:: Clean-Voided MidstreamPerformed By: #### ADDONUAPLUS #### [facility] [address] [place] [address] USALeukocyte esterase [Presence] in Urine by Test strip Ordered By: Mora Veliz on 82-81-5617Vrdmwtfsz esterase Test strip Ql (U) Leukocyte esterase [Presence] in Urine by Test stripNegativeCrystal Clinic Orthopedic CenterLeukocyte esterase Test strip Ql (U)NegativeNormalNegative [facility] CenterComment on above:Order Comment: Name Collection Type:: Clean-Voided MidstreamPerformed By: #### ADDONUAPLUS #### [facility] [address] [place] [id number] USALeukocytes [#/area] in Urine sediment by Automated count Ordered By: Mora Veliz on 99-64-6449OHA Auto (Urine sed) [#/Area]Leukocytes [#/area] in Urine sediment by Automated count0-4FAdena Health SystemWBC Auto (Urine sed) [#/Area]3-4 [HPF]0-4FAdena Health System Leukocytes [#/volume] corrected for nucleated erythrocytes in Blood by Automated counOrdered By: Mora Veliz on 79-87-2399OBJ corrected for nucl RBC Auto (Bld) [#/Vol]Leukocytes [#/volume] corrected for nucleated erythrocytes in Blood by Automated coun3.8-11.6FAdena Health SystemWBC corrected for nucl RBC Auto (Bld) [#/Vol]7.7 10*3/uL3.8-11.6FAdena Health System Leukocytes [#/volume] in Blood by Automated countOrdered By: Mora Veliz on 95-44-5962MGX (Bld) [#/Vol]7.7 10*3/uLNormal3.8-11.6FAdena Health SystemComment on above:Performed By: #### CBC, HEPATIC, BMP, LIPASE #### [place] [address] USALipase [Enzymatic activity/volume] in Serum or Plasma Ordered By: Mora Veliz on 52-03-3207Glwhex [Catalytic activity/Vol]Lipase [Enzymatic activity/volume] in Serum or Rsqxdi36.0-82.0[facility] Orthopedic CenterLipase [Catalytic activity/Vol]35.0 U/ZPodcnh03.0-82.0[facility] CenterComment on above:Result Comment: PERFORMED BY: [place] [address] PATHOLOGIST HUC VIVEK HARDIN M.D.Performed By: #### CBC, HEPATIC, BMP, LIPASE #### [place] [address] USALymphocytes Auto (Bld) [#/Vol]Ordered By: Mora Veliz on 99-47-4014Jwlaiuwwpav (Bld) [#/Vol]Lymphocytes [#/volume] in Blood by Automated count1.00-4.8[facility]opedic CenterLymphocytes [#/volume] in Blood by Automated countOrdered By: Mora Veliz on 25-91-4350Fnjgspllmlx (Bld) [#/Vol]2.2 10*3/uLNormal1.00-4.8[facility]opedic CenterComment on above:Performed By: #### CBC, HEPATIC, BMP, LIPASE #### [place] [id number] USALymphocytes/100 WBC Auto (Bld)Ordered By: Mora Veliz on 15-94-5238Rwtddikoyey/100 WBC (Bld)Lymphocytes/100 leukocytes in Blood by Automated count.[facility] Orthopedic CenterLymphocytes/100 leukocytes in Blood by Automated countOrdered By: Mora Veliz on 06-30-4756Lrarqosrufg/100 WBC (Bld)28.8 %Normal.[facility]opedic CenterComment on above: Performed By: #### CBC, HEPATIC, BMP, LIPASE #### [facility] [address] Auto (RBC) [Entitic mass]Ordered By: Mora Veliz on 14-83-5262XVB (RBC) [Entitic mass]MCH [Entitic mass] by Automated count24.7-34.3 [facility] [Entitic mass] by Automated countOrdered By: Mora Veliz on 55-18-0879NVE (RBC) [Entitic mass]29.6 osIdwjvq70.7-34.3 [facility] CenterComment on above:Performed By: #### CBC, HEPATIC, BMP, LIPASE #### [facility] [address] Auto (RBC) [Mass/Vol]Ordered By: Mora Veliz on 89-92-8812LFIG (RBC) [Mass/Vol]MCHC [Mass/volume] by Automated count32.0-35.0 [facility] (RBC) [Mass/Vol]33.7 g/dL32.0-35.0 [facility] Auto (RBC) [Entitic vol]Ordered By: Mora Veliz on 31-43-0271SST (RBC) [Entitic vol]MCV [Entitic volume] by Automated mdhot97-553EhaasjntqOur Lady of [facility] [Entitic volume] by Automated countOrdered By: Mora Veliz on 30-74-2128XZE (RBC) [Entitic vol]87.9 fL Dzpykw70-162Kddw[address] [place], [place] [address]Comment on above:Performed By: #### CBC, HEPATIC, BMP, LIPASE #### [facility] [address] [place] [address] USAMonocyte distribution width [Entitic volume] in Blood by AutomatedOrdered By: Mora Veliz on 54-59-2183Efktbrsc distribution width Auto (Bld) [Entitic vol]Monocyte distribution width [Entitic volume] in Blood by Automated0.00-20.00[facility]opedic CenterMonocyte distribution width Auto (Bld) [Entitic vol]18.13 %0.00-20.00[facility] Monocytes Auto (Bld) [#/Vol]Ordered By: Mora Veliz on 63-45-5297Nhhpsbqtn (Bld) [#/Vol]Automated blood monocyte count0.0-0.8[facility]opedic CenterMonocytes [#/volume] in Blood by Automated countOrdered By: Mora Veliz on 42-52-6082Gycifkmlp (Bld) [#/Vol]0.6 10*3/uLNormal0.0-0.8[facility] CenterComment on above:Performed By: #### CBC, HEPATIC, BMP, LIPASE #### [facility] [address] [place] [id number] USAMonocytes/100 WBC Auto (Bld)Ordered By: Mora Veliz on 39-23-2448Aagjwyebr/100 WBC (Bld)Automated monocyte %.[facility] CenterMonocytes/100 leukocytes in Blood by Automated countOrdered By: Mora Veliz on 94-31-3477Spsbozzhj/100 WBC (Bld)7.8 %Normal.[facility] CenterComment on above:Performed By: #### CBC, HEPATIC, BMP, LIPASE #### [facility] [address] [place] [id number] USAMucus [Presence] in Urine by AutomatedOrdered By: Mora Veliz on 74-19-4256Uvius Auto Ql (U)Mucus [Presence] in Urine by Automated [facility]opedic CenterMucus Auto Ql (U)Rare [LPF][facility] CenterNeutrophils Auto (Bld) [#/Vol]Ordered By: Mora Veliz on 93-12-5277Sdvghxfsfqq (Bld) [#/Vol]Neutrophils [#/volume] in Blood by Automated count1.8-7.7FAdena Health SystemNeutrophils [#/volume] in Blood by Automated countOrdered By: Mora Veliz on 23-35-5040Aoryoddlfyr (Bld) [#/Vol] 4.7 10*3/uLNormal1.8-7.7FAdena Health SystemComment on above: Performed By: #### CBC, HEPATIC, BMP, LIPASE #### [facility] [address] [place] [address] USANeutrophils/100 WBC Auto (Bld)Ordered By: Mora Veliz on 32-07-7655Xbkinvehohf/100 WBC (Bld)Automated neutrophil %.[facility]opedic CenterNeutrophils/100 leukocytes in Blood by Automated countOrdered By: Mora Veliz on 54-67-3520Axryryfdsik/100 WBC (Bld)60.4 %Normal.[facility]opedic CenterComment on above:Performed By: #### CBC, HEPATIC, BMP, LIPASE #### [facility] [address] [place] [id number] USANitrite Test strip Ql (U)Ordered By: Mora Veliz on 34-59-8386Kowwkia Ql (U)Nitrite [Presence] in Urine by Test stripNegative [facility]opedic CenterNitrite Ql (U)NegativeNegativeCrystal Clinic Orthopedic CenterNo Panel InformationOrdered By: Mora Veliz on 74-69-8893Iywswglne GFR (CKD-EPI)> 60.0 mL/MinCrystal Clinic Orthopedic Center Pharmacy Creatinine Clearance (Hvmp383.51[facility] Nucleated erythrocytes [Presence] in Blood by Automated countOrdered By: Mora Veliz on 59-51-3001Ulwhumusj RBC Auto Ql (Bld)Nucleated erythrocytes [Presence] in Blood by Automated count0-0.5FAdena Health System Nucleated RBC Auto Ql (Bld)0.1 /100{WBC}0-0.5FAdena Health System Opiates [Presence] in Urine by Screen methodOrdered By: Mora Veliz on 94-59-3771Deskxog Screen Ql (U)Opiates [Presence] in Urine by Screen method NegativeCrystal Clinic Orthopedic CenterOpiates Screen Ql (U)NegativeNegative [facility] Clinic Orthopedic CenterPhencyclidine Screen Ql (U)Ordered By: Mora Veliz on 28-10-6118Djgokkrcweeik Ql (U)Phencyclidine [Presence] in Urine by Screen methodNegativeCrystal Clinic Orthopedic CenterPhencyclidine Ql (U) NegativeNegativeCrystal Clinic Orthopedic CenterPlatelet mean volume Auto (Bld) [Entitic vol]Ordered By: Mora Veliz on 65-01-6178Yshvmswa mean volume (Bld) [Entitic vol]Platelet mean volume [Entitic volume] in Blood by Automated count 6.3-10.7FAdena Health SystemPlatelet mean volume [Entitic volume] in Blood by Automated countOrdered By: Mora Veliz on 62-35-7287Xlgzrers mean volume (Bld) [Entitic vol]8.5 fLNormal6.3-10.7FAdena Health System Comment on above:Performed By: #### CBC, HEPATIC, BMP, LIPASE #### [place] [address] USAPlatelets Auto (Bld) [#/Vol]Ordered By: Mora Veliz on 35-00-6424Whjtfkueh (Bld) [#/Vol]Platelets [#/volume] in Blood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 [address]CLW/1.73 sq M.predicted MDRD (S/P/Bld) [Vol rate/Area] mL/min/{1.73_m2}Normal>60UnSamaritan North Health CenterComment on above:Result Comment: Calculations of estimated GFR are performed using the 2020 CKD-EPI Study Refit equation without the race variable for the IDMS-Traceable creatinine methods. https://jasn.asnjournals.org/content/early/ASN.4529501524Pwpnkucut By: #### 59954-1 ####JOLENE Cantu ([id number])[facility] ([facility])[address] [place], [place] [address]Wfjrhzd [Mass/Vol]98 mg/hYPgslgd92-04MdffoqkosbMemorial Health System Marietta Memorial HospitalComment on above:Performed By: #### 05401-1 ####JOLENE Cantu ([id number])[facility] ([facility])[address] [place], [place] [address]Vhvudvqtp [Moles/Vol]4.0 mmol/LNormal3.5-5.3UnSamaritan North Health CenterComment on above:Result Comment: MILD HEMOLYSIS DETECTED. The result may be falsely elevated due to hemolysis or other interferents. Clinical correlation is recommended. Repeat testing may be considered.Performed By: #### 65759-0 ####JOLENE Cantu ([id number])[facility] ([facility])[address] [place], [place] [address]Ylkljfp [Mass/Vol]7.3 g/dLNormal6.4-8.2UnSamaritan North Health CenterComment on above:Performed By: #### 46213-9 ####JOLENE Cantu ([id number])[facility] ([facility])[address] [place], [place] [address]Unjvhg [Moles/Vol]138 mmol/ICirjgs415-161AgskabvwelSamaritan North Health CenterComment on above:Performed By: #### 54246-2 ####JOLENE Cantu (73961)[facility] ([facility])[address] [place], [place] [address]Ncnb nitrogen [Mass/Vol]13 mg/dLNormal6-23UnSamaritan North Health CenterComment on above:Performed By: #### 80559-0 ####JOLENE Cantu ([id number])[facility] ([facility])[address] [place], [place] [address]EU Lumbar spine WO and W contrast Karen . Ongoing interval decrease in size of small rim enhancing collection in the cutaneous tissues of the posterior lower back, to the left of midline, now measuring 1.3 x 0.3 cm compared to 2.5 x 1.3 cm in May of 2024, when using similar points of reference. 2. Unchanged subarticular disc herniation at the level of L4-L5, status post left-sided laminotomy with moderate bilateral neural foraminal stenosis at this level. 3. No new spinal canal stenosis is identified other acute abnormality is identified in the lumbar spine in the interim since prior imaging.. MACRO: None Signed by: Bernadette Tapia 06/28/2024 1:29 AM Dictation workstation: [id number] MMODALInterpreted By: Bernadette Tapia, STUDY: MR LUMBAR SPINE W AND WO IV CONTRAST; 06/28/2024 12:36 am INDICATION: Signs/Symptoms:Left leg without sensation to level of T12-L1, motor weakness LLE. COMPARISON: MRI of the lumbar spine dated 05/16/2024; 04/24/2024; 01/10/2024. ACCESSION NUMBER(S): [id number] ORDERING CLINICIAN: NEHEMIAH DYER TECHNIQUE: Sagittal T1, T2, STIR, axial T1 and T2 weighted images of the lumbar spine were acquired. Additional axial and sagittal T1 weighted images of the lumbar spine were obtained after intravenous administration of 20 mL of Dotarem gadolinium contrast. FINDINGS: There are 5 lumbar type non rib-bearing vertebral bodies, with the lowest well-formed intervertebral disc space labeled L5-S1. Lumbar vertebral alignment is maintained, without evidence of new spondylolisthesis. Lumbar vertebral body heights are preserved without evidence of compression fractures. Posterior elements of the lumbar spine do not demonstrate any new signal changes Marrow signal is within normal limits without evidence of new STIR hyperintense edema or T1 hypointense, marrow replacing enhancing process. Moderate intervertebral disc height loss at the level of L4-L5 is similar in appearance to prior exam. No new intervertebral disc height loss is present in the lumbar spine. Visualized lower thoracic spine is unremarkable in appearance. Conus medullaris terminates at the level of L1-L2 and is unremarkable. Within limits of the significant motion no definite evidence of new abnormal leptomeningeal or epidural enhancement is present. T12-L1: No posterior disc contour abnormality or spinal canal stenosis is present. 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 L1-L2: No posterior disc contour abnormality is present. No spinal canal or neural foraminal stenosis is evident. L2-L3: No posterior disc contour abnormality is present. No new spinal canal or neural foraminal stenosis is present. L3-L4: Slight disc bulge is present without significant new spinal canal or neural foraminal stenosis. L4-L5: Redemonstration of a left-sided laminotomy of L4-L5, with similar appearance of circumferential disc bulge with superimposed left subarticular/para foraminal disc herniation at the level of L4-L5 compared to prior studies, which does not cause significant spinal canal stenosis, but effaces the left subarticular recess and may abut the traversing left L5 nerve. There is unchanged moderate bilateral neural foraminal stenosis due to hypertrophic facet changes and bulging disc. L5-S1. Mild disc bulge is present without spinal canal stenosis. No significant neural foraminal narrowing is present bilaterally. There is redemonstration of subtle rim enhancing collection in the cutaneous fat overlying the posterior elements of the lumbar spine, demonstrate ongoing interval decreased in size from prior imaging, now measuring 1.4 x 0.3 cm in size compared to 2.5 x 1.3 cm when using similar points of reference. Mild STIR hyperintense edema in paraspinal musculature in the lower lumbar spine in the left is unchanged in appearance to prior exam, likely reactive. No new soft tissue abnormality is identified. MMODALBernadette Tapia MD - 06/28/2024 Interpreted By: Bernadette Tapia, STUDY: MR LUMBAR SPINE W AND WO IV CONTRAST; 06/28/2024 12:36 am INDICATION: Signs/Symptoms:Left leg without sensation to level of T12-L1, motor weakness LLE. COMPARISON: MRI of the lumbar spine dated 05/16/2024; 04/24/2024; 01/10/2024. ACCESSION NUMBER(S): [id number] ORDERING CLINICIAN: NEHEMIAH DYER TECHNIQUE: Sagittal T1, T2, STIR, axial T1 and T2 weighted images of the lumbar spine were acquired. Additional axial and sagittal T1 weighted images of the lumbar spine were obtained after intravenous administration of 20 mL of Dotarem gadolinium contrast. FINDINGS: There are 5 lumbar type non rib-bearing vertebral bodies, with the lowest well-formed intervertebral disc space labeled L5-S1. Lumbar vertebral alignment is maintained, without evidence of new spondylolisthesis. Lumbar vertebral body heights are preserved without evidence of compression fractures. Posterior elements of the lumbar spine do not demonstrate any new signal changes Marrow signal is within normal limits without evidence of new STIR hyperintense edema or T1 hypointense, marrow replacing enhancing process. Moderate intervertebral disc height loss at the level of L4-L5 is similar in appearance to prior exam. No new intervertebral disc height loss is present in the lumbar spine. Visualized lower thoracic spine is unremarkable in appearance. Conus medullaris terminates at the level of L1-L2 and is unremarkable. Within limits of the significant motion no definite evidence of new abnormal leptomeningeal or epidural enhancement is present. T12-L1: No posterior disc contour abnormality or spinal canal stenosis is present. 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 L1-L2: No posterior disc contour abnormality is present. No spinal canal or neural foraminal stenosis is evident. L2-L3: No posterior disc contour abnormality is present. No new spinal canal or neural foraminal stenosis is present. L3-L4: Slight disc bulge is present without significant new spinal canal or neural foraminal stenosis. L4-L5: Redemonstration of a left-sided laminotomy of L4-L5, with similar appearance of circumferential disc bulge with superimposed left subarticular/para foraminal disc herniation at the level of L4-L5 compared to prior studies, which does not cause significant spinal canal stenosis, but effaces the left subarticular recess and may abut the traversing left L5 nerve. There is unchanged moderate bilateral neural foraminal stenosis due to hypertrophic facet changes and bulging disc. L5-S1. Mild disc bulge is present without spinal canal stenosis. No significant neural foraminal narrowing is present bilaterally. There is redemonstration of subtle rim enhancing collection in the cutaneous fat overlying the posterior elements of the lumbar spine, demonstrate ongoing interval decreased in size from prior imaging, now measuring 1.4 x 0.3 cm in size compared to 2.5 x 1.3 cm when using similar points of reference. Mild STIR hyperintense edema in paraspinal musculature in the lower lumbar spine in the left is unchanged in appearance to prior exam, likely reactive. No new soft tissue abnormality is identified. IMPRESSION: 1. Ongoing interval decrease in size of small rim enhancing collection in the cutaneous tissues of the posterior lower back, to the left of midline, now measuring 1.3 x 0.3 cm compared to 2.5 x 1.3 cm in May of 2024, when using similar points of reference. 2. Unchanged subarticular disc herniation at the level of L4-L5, status post left-sided laminotomy with moderate bilateral neural foraminal stenosis at this level. 3. No new spinal canal stenosis is identified other acute abnormality is identified in the lumbar spine in the interim since prior imaging.. MACRO: None Signed by: Bernadette Tapia 06/28/2024 1:29 AM Dictation workstation: [id number] [facility] Work Phone: mr Lumbar spine WO and W contrast IVOrdered By: Bernadette Tapia on [id number] Township District Memorial Hospital Work Phone: mr LUMBAR SPINE W AND WO IV CONTRASTon [id number] LUMBAR SPINE W AND WO IV CONTRASTInterpreted By: Bernadette Tapia, STUDY: MR LUMBAR SPINE W AND WO IV CONTRAST; 06/28/2024 12:36 am INDICATION: Signs/Symptoms:Left leg without sensation to level of T12-L1, motor weakness LLE. COMPARISON: MRI of the lumbar spine dated 05/16/2024; 04/24/2024; 01/10/2024. ACCESSION NUMBER(S): [id number] ORDERING CLINICIAN: NEHEMIAH DYER TECHNIQUE: Sagittal T1, T2, STIR, axial T1 and T2 weighted images of the lumbar spine were acquired. Additional axial and sagittal T1 weighted images of the lumbar spine were obtained after intravenous administration of 20 mL of Dotarem gadolinium contrast. FINDINGS: There are 5 lumbar type non rib-bearing vertebral bodies, with the lowest well-formed intervertebral disc space labeled L5-S1. Lumbar vertebral alignment is maintained, without evidence of new spondylolisthesis. Lumbar vertebral body heights are preserved without evidence of compression fractures. Posterior elements of the lumbar spine do not demonstrate any new signal changes Marrow signal is within normal limits without evidence of new STIR hyperintense edema or T1 hypointense, marrow replacing enhancing process. Moderate intervertebral disc height loss at the level of L4-L5 is similar in appearance to prior exam. No new intervertebral disc height loss is present in the lumbar spine. Visualized lower thoracic spine is unremarkable in appearance. Conus medullaris terminates at the level of L1-L2 and is unremarkable. Within limits of the significant motion no definite evidence of new abnormal leptomeningeal or epidural enhancement is present. T12-L1: No posterior disc contour abnormality or spinal canal stenosis is present. 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 L1-L2: No posterior disc contour abnormality is present. No spinal canal or neural foraminal stenosis is evident. L2-L3: No posterior disc contour abnormality is present. No new spinal canal or neural foraminal stenosis is present. L3-L4: Slight disc bulge is present without significant new spinal canal or neural foraminal stenosis. L4-L5: Redemonstration of a left-sided laminotomy of L4-L5, with similar appearance of circumferential disc bulge with superimposed left subarticular/para foraminal disc herniation at the level of L4-L5 compared to prior studies, which does not cause significant spinal canal stenosis, but effaces the left subarticular recess and may abut the traversing left L5 nerve. There is unchanged moderate bilateral neural foraminal stenosis due to hypertrophic facet changes and bulging disc. L5-S1. Mild disc bulge is present without spinal canal stenosis. No significant neural foraminal narrowing is present bilaterally. There is redemonstration of subtle rim enhancing collection in the cutaneous fat overlying the posterior elements of the lumbar spine, demonstrate ongoing interval decreased in size from prior imaging, now measuring 1.4 x 0.3 cm in size compared to 2.5 x 1.3 cm when using similar points of reference. Mild STIR hyperintense edema in paraspinal musculature in the lower lumbar spine in the left is unchanged in appearance to prior exam, likely reactive. No new soft tissue abnormality is identified. IMPRESSION: 1. Ongoing interval decrease in size of small rim enhancing collection in the cutaneous tissues of the posterior lower back, to the left of midline, now measuring 1.3 x 0.3 cm compared to 2.5 x 1.3 cm in May of 2024, when using similar points of reference. 2. Unchanged subarticular disc herniation at the level of L4-L5, status post left-sided laminotomy with moderate bilateral neural foraminal stenosis at this level. 3. No new spinal canal stenosis is identified other acute abnormality is identified in the lumbar spine in the interim since prior imaging.. MACRO: None Signed by: Bernadette Tapia 06/28/2024 1:29 AM Dictation workstation: [id number] HospitalMR Lumbar spine WO and W contrast Karen [id number] Study observation (narrative)[facility] Work Phone: .Lyme IgG/IgMon 06-26-2024. burgdorferi IgG IA Ql NegativeInvalid Interpretation CodeNegativeOhiohealth Berger HospitalComment on above:Performed By: #### [id number] #### [facility] [address] [place], [place] [address]U. burgdorferi IgM IA QlPositiveInvalid Interpretation Code NegativeOhiohealth Berger HospitalComment on above:Performed By: #### [id number] #### [facility] [address] [place], [place] [address]FSQGWYDR BURGDORFERI AB:IMP:PT:SER:NOM:IA.MTTTDetectedAbnormal [facility] HospitalComment on above:Result Comment: Results are consistent with acute or recent infection with B. burgdorferi (Lyme disease) if testing occurred within 30 days of symptom onset. IgM immunoassay results should only be considered as indicative of recent infection in patients presenting within 30 days of symptom onset. Consideration of IgM results in patients with symptoms lasting >30 days is discouraged due to the risk of false positive results or prolonged IgM seropositivity following disease resolution. Testing of a new specimen collected in 7 to 14 days to demonstrate IgG seroconversion may be considered to confirm infection. If both tests are equivocal consider repeat testing in 7 to 14 days if clinically warranted. Performed at: [facility] [id number] PhD Pantera AlonsoPerformed By: #### [id number] #### [facility] [address] [place], [place] [address]SAK w/Reflex if POSon [id number] Ab Ql (S)Negative Invalid Interpretation CodeNegativeOhiohealth Berger HospitalComment on above: Result Comment: Performed at: [facility] [address] [id number] PhD Pantera Clarkformed By: #### [id number] #### [facility] [address] [place], [place] [address]VZG and PE, Serumon [id number] [Mass/Vol]3.4 g/dLInvalid Interpretation Code2.9-4.4FClermont County HospitalComment on above:Performed By: #### [id number] #### [facility] [address] [place], [place] [address]Qviezog/Globulin [Mass ratio]1.1 {ratio}Invalid Interpretation Code0.7-1.7FClermont County HospitalComment on above:Performed By: #### [id number] #### [facility] [address] [place], [place] [address]Ugprp 1 globulin Elph [Mass/Vol]0.3 g/dLInvalid Interpretation Code0.0-0.4FClermont County HospitalComment on above:Performed By: #### [id number] #### [facility] [address] [place], [place] [address]Qcdzw 2 globulin Elph [Mass/Vol]1.0 g/dLInvalid Interpretation Code0.4-1.0Ohio[facility] Berger HospitalComment on above:Performed By: #### [id number] #### [facility] [address] [place], [place] [address]Celm globulin Elph [Mass/Vol]1.2 g/dLInvalid Interpretation Code0.7-1.3FClermont County HospitalComment on above:Performed By: #### [id number] #### [facility] [address] [place], [place] [address]Vvfkq globulin Elph [Mass/Vol]0.9 g/dLInvalid Interpretation Code0.4-1.8[facility] Berger HospitalComment on above:Performed By: #### [id number] #### [facility] [address] [place], [place] [address]Loocjlrs (S) [Mass/Vol]3.4 g/dLInvalid Interpretation Code 2.2-3.9Ohio[facility] Berger HospitalComment on above:Performed By: #### [id number] #### [facility] [address] [place], [place] [address]YeP [Mass/Vol]197 mg/dLInvalid Interpretation Pyiu52-218WdmkijOhiohealth Berger HospitalComment on above:Performed By: #### [id number] #### [facility] [address] [place], [place] [address]IjV [Mass/Vol]961 mg/dLInvalid Interpretation [id number] [facility] HospitalComment on above:Performed By: #### [id number] #### [facility] [address] [place], [place] [address]HbI [Mass/Vol]54 mg/dLInvalid Interpretation Alhs59-131RidjmxOhiohealth Berger HospitalComment on above:Performed By: #### [id number] #### [facility] [address] [place], [place] [address]Anvpciqlucromt IEP [Interp]CommentInvalid Interpretation Code [facility] Berger HospitalComment on above:Result Comment: No monoclonality detected.Performed By: #### [id number] #### [facility] [address] [place], [place] [address]Wmriaugbud comment Sky (Report)CommentInvalid Interpretation CodeOhiohealth Berger HospitalComment on above:Result Comment: Protein electrophoresis scan will follow via computer, mail, or varnish remover delivery. Performed at: [facility] [id number] PhD Pantera Clarkformed By: #### [id number] #### [facility] [address] [place], [place] [address]Aqnenuf [Mass/Vol]6.8 g/dLInvalid Interpretation Code6.0-8.5 [facility] HospitalComment on above:Performed By: #### [id number] #### [facility] [address] [place], [place] [address]Mgtsuem.monoclonal Elph [Mass/Vol]Not ObservedInvalid Interpretation CodeNot ObservedOhiohealth Berger HospitalComment on above: Performed By: #### [id number] #### [facility] [address] [place], [place] [address]Dxco Abs rfxon 5B. burgdorferi IgG+IgM IA Ql (S) PositiveInvalid Interpretation CodeNegativeOhiohealth Berger HospitalComment on above:Result Comment: Evidence of Lyme antibodies; confirmation indicated. See Lyme IgG and Lyme IgM results (reflex testing), and Lyme interpretation for final interpretation of the Lyme serology reflex algorithm. Performed at: [employer] [id number] PhD Pantera AlonsoPerformed By: #### [id number] #### [facility] [address] [place] [id number] FETOPROTEIN, TUMOR MARKERon [id number] FETOPROTEIN, TUMOR MARKER3.5 ng/mLNormalQuest DiagnosticsComment on above:Result Comment: Reference Range: <6.1 The use of AFP as a tumor marker in females is not recommended. This test was performed using the Katlyn Allouez chemiluminescent method. Values obtained from different assay methods cannot be used interchangeably. AFP levels, regardless of value, should not be interpreted as absolute evidence of the presence or absence of disease.Performed By: #### 1663, 285, 237, 89970 #### [facility] [address], [address] [place], [place] [id number] Compound Filler: Tej Uribe MDBILIRUBIN, DIRECTon 06-25-2024 Bilirubin.indirect [Mass/Vol]0.1 mg/dLNormal< OR = 0.2Quest DiagnosticsComment on above:Order Comment: FASTING:YES FASTING: YESPerformed By: #### 4090, 285, 237, 05633 #### [facility] [address], [address] [place] [address] Compound Filler: Tej Uribe MDCOMPREHENSIVE METABOLIC PANEL W/ANION GAPon 28-63-3784Rzrgkdr [Mass/Vol]4.2 g/dLNormal3.6-5.1Quest DiagnosticsComment on above:Performed By: #### 8847, 285, 237, 14472 #### [facility] of [address], [address] [place] [address] Compound Filler: Tej Uribe MDALP [Catalytic activity/Vol]93 U/IUwpaww10-528 [facility] DiagnosticsComment on above:Performed By: #### 8847, 285, 237, 54767 #### [facility] of [place] [address] Compound Filler: Tej Uribe MDALT [Catalytic activity/Vol]17 U/LNormal6-29 [facility] DiagnosticsComment on above:Performed By: #### 8847, 285, 237, 10717 #### [facility] of [place] [address] Compound Filler: Tej Uribe MDAST [Catalytic activity/Vol]19 U/XFgdfhb03-80 [facility] DiagnosticsComment on above:Performed By: #### 8847, 285, 237, 53891 #### [facility] of [place] [address] Compound Filler: Tej Uribe MDBilirubin [Mass/Vol]0.4 mg/dLNormal0.2-1.2 [facility] DiagnosticsComment on above:Performed By: #### 8847, 285, 237, 73699 #### [facility] of [place] [address] Compound Filler: Tej Uribe MDCalcium [Mass/Vol]8.7 mg/dLNormal8.6-10.2Quest DiagnosticsComment on above:Performed By: #### 8847, 285, 237, 89851 #### [facility] of [place] [address] Compound Filler: Tej GARCIAhloride [Moles/Vol]107 mmol/ECiblvz55-945 [facility] DiagnosticsComment on above:Performed By: #### 8847, 285, 237, 65915 #### [facility] [address], [address] [place] [address] Compound Filler: Tej Uribe MDCO2 [Moles/Vol]21 mmol/DNvourm06-57Ooaxd DiagnosticsComment on above:Performed By: #### 8847, 285, 237, 03660 #### [facility] [place] [address] Compound Filler: Tej GARCIAreatinine [Mass/Vol]0.75 mg/dLNormal0.50-0.99 [facility]osticsComment on above:Performed By: #### 8847, 285, 237, 19622 #### [facility] [address], [address] [place] [address] Compound Filler: Tej Uribe MDELECTROLYTE BDGNBMK74 mmol/L (calc)Normal7-17 Quest DiagnosticsComment on above:Performed By: #### 8847, 285, 237, 90661 #### [facility] [place] [address] Compound Filler: Tej Uribe MDGFR/1.73 sq M.predicted among non-blacks MDRD (S/P/Bld) [Vol rate/Area]99 mL/min/{1.73_m2}Normal> OR = 60[facility] Comment on above:Performed By: #### 8847, 285, 237, 44392 #### [facility] of [address], [address] [place] [address] Compound Filler: Tej Uribe MDGlucose [Mass/Vol]117 mg/zTXrbh44-26Yalsm DiagnosticsComment on above:Result Comment: Fasting reference interval For someone without known diabetes, a glucose value between 100 and 125 mg/dL is consistent with prediabetes and should be confirmed with a follow-up test.Performed By: #### 8847, 285, 237, 59308 #### [facility] of [place] [address] Compound Filler: Tej Uribe MDPotassium [Moles/Vol]4.5 mmol/LNormal3.5-5.3 Quest DiagnosticsComment on above:Performed By: #### 8847, 285, 237, 20619 #### [facility] [place] [address] Compound Filler: Tej Uribe MDProtein [Mass/Vol]7.0 g/dLNormal6.1-8.1Quest DiagnosticsComment on above:Performed By: #### 8847, 285, 237, 09292 #### [facility] [place] [address] Compound Filler: Tej Uribe MDSodium [Moles/Vol]141 mmol/YHrugox278-603Wxhie DiagnosticsComment on above:Performed By: #### 8847, 285, 237, 57141 #### [facility] [place] [address] Compound Filler: Tej Uribe MDUrea nitrogen [Mass/Vol]10 mg/dLNormal7-25 Quest DiagnosticsComment on above:Performed By: #### 8847, 285, 237, 94671 #### [facility] of [place] [address] Compound Filler: Tej Uribe MDPROTHROMBIN TIME-INRon 52-76-2064AFE Coag (PPP) [Relative time]1.0 {INR}NormalQuest DiagnosticsComment on above:Result Comment: Reference Range 0.9-1.1 Moderate-intensity Warfarin Therapy 2.0-3.0 Higher-intensity Warfarin Therapy 3.0-4.0Performed By: #### 8847, 285, 237, 06275 #### [facility] [place] [address] Compound Filler: Tej MOTLEYT Coag (PPP) [Time]10.8 sNormal9.0-11.5Quest DiagnosticsComment on above:Result Comment: For additional information, please refer to http://education.CloudFX/faq/HIL784 (This link is being provided for informational/ educational purposes only.)Performed By: #### 8847, 285, 237, 80204 #### [facility] [address], [address] [place] [address] Compound Filler: Tej Uribe MDXR SPINE LUMBAR W/ BENDING 6+ VIEWSon 19-36-6805KX SPINE LUMBAR W/ BENDING 6+ VIEWSEXAM: XR SPINE LUMBAR W/ BENDING 6+ VIEWS HISTORY: vertebrogenic low back pain COMPARISON: None. FINDINGS/IMPRESSION: 1. No acute fracture or dislocation. 2. Moderate disc degeneration at L4-5 and L5-S1. 3. Vertebral body height is preserved. 4. No instability on flexion-extension views. 5. Moderate facet joint arthropathy at L4-5 and L5-S1. 6. Overlying bowel gas pattern is nonspecific and nonobstructive. 7. Cholecystectomy. 8. Sacroiliac joints are normal.NormalHealthsouth Rehabilitation Hospital Of Littletonta [facility] B12on 06-24-2024 Cobalamin (Vitamin B12) [Mass/Vol]393 pg/pUKthraf45-7933VqvldqOhiohealth Berger HospitalComment on above:Performed By: #### [id number] #### [facility] [address] [place], [place] [address]Ylclxnqvdq Visit Summaryon 22-48-5674Zcobvynvgg Visit Summary Ambulatory Visit Summary DEMARCUSSTEVENJERAD A :1975 Visit Date:06/23/2024 Ambulatory Visit Instructions Your Diagnosis Bipolar disorder Chronic hepatitis C Chronic lumbar pain Muscle spasm Neuropathy Other chronic pain Your Care Team Attending Physician - FLOR JONES Primary Care Physician - FLOR JONES This Is Your Medications List cyclobenzaprine (cyclobenzaprine 10 mg Tab) duloxetine (duloxetine 60 mg oral delayed release capsule) oxycodone (oxyCODONE 5 mg Tab) Contact prescribing physician if questions or concerns hydrOXYzine ibuprofen (ibuprofen 800 mg Tab) [Image Removed: STOP]Stop taking these medications acetaminophen-oxycodone (Percocet 5 mg-325 mg oral tablet) naproxen (Naprosyn 500 mg Tab) Procedures Performed Hysterectomy (2010), History of cholecystectomy, Hysterectomy, lap x 7, Tonillectomy with adenoids. Discharge Vitals Heart Rate (Peripheral) 99 Blood Pressure 122/76 Height 160 cm Height 63 in Weight 123.9 kg Weight 273.152 lb BMI 48.4 What to do next Scheduled Follow-Up Appointments Saturday 11:00 AM EDT With: FLOR JONES Where: [facility] [address] [place] [address]- You Need to Complete the Following MA Mamm Screen w/CAD if perf and 3D Kenan, 06/23/24, Routine, Order for Future Visit, Transport Mode:Ambulatory, Reason: Screening, No, Screening for breast cancer, pp_set_radiology_subspecialty, [facility] Someone Will Contact You Regarding These Appointments [facility] External Ambulatory Referral, Pain Management, Dr Calero, 06/23/24 10:04:00 EDT, Chronic lumbar pain Medications What How Much When Why Instructions New oxycodone (oxyCODONE 5 mg Tab) 1 Tablets By Mouth 2 times a day as needed for for pain Chronic lumbar pain Muscle spasm Neuropathy Pickup at [facility]/pharmacy #6173 Changed duloxetine (duloxetine 60 mg oral delayed release capsule) 1 Capsules By Mouth Every day Neuropathy Pickup at [facility]/pharmacy #6173 Unchanged cyclobenzaprine (cyclobenzaprine 10 mg Tab) 1 Tablets By Mouth 3 times a day as needed for for spasm Muscle spasm Pickup at [facility]/pharmacy #6173 Unchanged hydrOXYzine 25 Milligram Duration: 1 Days Contact prescribing physician if questions or concerns Unchanged ibuprofen (ibuprofen 800 mg Tab) 1 Tablets By Mouth 3 times a day Contact prescribing physician if questions or concerns Pharmacy Information [facility]/pharmacy #[id number]: [address] [place], [place] [id number] [phone] What How Much When Why Comments Stop Taking acetaminophen-oxycodone (Percocet 5 mg-325 mg oral tablet) 1 Tablets By Mouth Every 6 hours as needed for Pain 8-10 Back pain Stop Taking naproxen (Naprosyn 500 mg Tab) 1 Tablets By Mouth 2 times a day as needed for for pain Allergies Tylenol (Unknown) Vicodin (Hives) nabumetone (Rash) penicillin (Hives) Problems Ongoing - Any problem that you are currently receiving treatment for. Arthritis of first carpometacarpal joint of right hand Bipolar disorder Chronic back pain Chronic hepatitis C Closed fracture of trapezoidal bone of wrist COVID-19 Diarrhea Disease of liver Drug therapy finding Elevated blood pressure reading Encounter for screening mammogram for breast cancer Fatigue Migraine Screening for cardiovascular condition Smoker Smoker Tendonitis of right wrist Weight gain Wellness examination Historical - Any problem that you are no longer receiving treatment for. Bipolar Continuous opioid dependence Hepatitis C Liver disease Migraines Patient Survey You may receive a survey via text or e-mail asking about your office visit. Please share your experience with us by completing your survey. We appreciate your feedback and thank you for choosing us for your care. [facility] HospitalCHEMISTRYOrdered By: SYSTEM SYSTEM on 72-37-9603Akljjujqzkj [Mass/Vol]169 mg/wIQkpood874 - 200 mg/dLRemisol ChemCholesterol in HDL [Mass/Vol]50 mg/dLInvalid Interpretation CodeRemisol Chem Comment on above:Result Comment: '>= 60 LOW RISK' '<= 40 HIGH RISK'Cholesterol in LDL [Mass/Vol]114 mg/dLNormal<=129mg/dLRemisol ChemCholesterol in VLDL [Mass/Vol]28 mg/dLNormal7 - 40 mg/dLRemisol Chem Cobalamin (Vitamin B12) [Mass/Vol]393 pg/bITbvwff84 - 1500 pg/mLRemisol ChemCRP High sensitivity method [Mass/Vol]1.60 mg/dLHigh<=0.75mg/dLRemisol Chem Triglyceride [Mass/Vol]141 mg/dLNormal<=149mg/dLRemisol ChemTSH Qn0.62 m[IU]/L Normal0.34 - 5.60 mcIU/mLRemisol ChemCHEMISTRYOrdered By: Annie Fairchild on 61-47-6500YrZ4n (Bld) [Mass fraction]5.8 %Normal<=5.9%[facility] ChemAutoSSCRP HSon 53-87-0526DOH High sensitivity method [Mass/Vol]1.60 mg/dLHigh<=0.75[facility] HospitalComment on above:Performed By: #### [id number] #### [facility] [address] [place], [place] [address]CD Note-Physicianon 84-48-5150SW Note-PhysicianED Note-Physician Basic Information Time Seen: Yaw MILES, Landon Govea 06/22/2024 11:26 Chief Complaint pt states had an hour ride to doctors appt, states chronic back pain worsened. History of Present Illness 49-year-old female reports Emergency Department with concerns of back pain. Reports that she is having acute flareup of back pain after riding in a car for an hour. she states no new injury. No new symptoms. This is her chronic pain but other include flare. Has tried yvws-mpw-okwinhs medication without much relief. She is following up with PCP tomorrow per the patient and is trying to get in witha new pain management doctor. Denies any bowel or bladder problems. Review of Systems No other aggravating or relieving factors no other associated symptoms no other prior treatments orcomplaints. Family: Reviewed and noncontributory Social: lives at home Review of systems negative unless otherwise specified in the HPI. Physical Exam Vitals & Measurements T: 36.9 ???C(Oral) HR: 117(Peripheral) RR: 18 BP: 168/121 SpO2: 98% HT: 160 cm WT: 120 kg BMI: 46.88 General: The patient appears well and in no apparent distress. Patient is resting comfortably in chair. Afebrile Skin: Warm, dry, no pallor noted. Head: Normocephalic, atraumatic Neck: No JVD Eye: PERRLA, EOMI ENT: Moist mucus membranes Cardiovascular: Regular rate. normal peripheral perfusion Respiratory: No respiratory distress. no accessory muscle use. no obvious audible wheezing Chest Wall: no deformity Musculoskeletal: normal ROM, no deformity, no swelling. Mild tenderness on palpation of the left lower lumbar spine. No step-off felt. GI: No obvious distention Neurological: A&O. moves all extremities equal strength and symmetry Psychiatric: Cooperative and appropriate Medical Decision Making MEDICAL DECISION MAKING Number and Complexity of Problems Differential Diagnosis: [] [facility] Data External documents reviewed: [] My EKG interpretation: [] My CT interpretation: [] My X-ray interpretation: [] My Ultrasound interpretation: [] Decision rules/scores evaluated: [] Discussed with: [] Treatment and Disposition ED Course: A 49-year-old female reports emergency department with acute flareup of her chronic backpain. No warning signs for cauda equina syndrome. She just was admitted for acute pain flare. Patient was given a shot of morphine and Toradol here in Emergency Department. Discussed complaints follow-up PCP. Discussed return precautions. Follow-up with your primary care provider in 3 to 5 days. Ifsymptoms worsen, do not improve, or new symptoms arise please report back to emergency department for further evaluation. The patient was understanding and agreeable to plan moving forward. Shared decision making: [] Code status: [] Assessment/Plan Chronic back pain (M54.9: Dorsalgia, unspecified) Other chronic pain (G89.29: Other chronic pain) Orders: ketorolac, 60 mg = 2 mL, Injection, IntraMuscular, Once, Stop date 06/22/24 11:34:00 EDT, STAT, Start date 06/22/24 11:34:00 EDT, 06/22/24 11:34:00 EDT morphine, 4 mg = 1 mL, Injection, IntraMuscular, Once, Stop date 06/22/24 11:34:00 EDT, STAT, Startdate 06/22/24 11:34:00 EDT, 06/22/24 11:34:00 EDT Medications Administered Given ketorolac 60 mg/2 mL Injection, 60 mg, IntraMuscular morphine 4 mg/mL Inj, 4 mg, IntraMuscular Disposition Plan Patient Discharge Condition stable Discharge Disposition to home Discharge Prescription List Prescriptions No active prescription medications Follow-up With When Contact Information KRISTAN LAU In 3 days 06/25/2024 EDT [address] [place] [address] Business (1) Additional Instructions: Call Dr for diagnosis based follow up Patient Education Chronic Back Pain Attestation Patient seen and evaluated by the physician construction assistant. Attending physician was present in the emergency department and supervised care. This visit was performed by both the physician and an APC. I performed all aspects of the MDM as documented. This report was transcribed using voice recognition software. Every effort was made to ensure accuracy, however, inadvertently computerized bill recapitulation clerk mistakes may be present. Appropriate healthcare PPE [...] carpometacarpal joint of right hand Bipolar disorder Chopped Strand Operator (more content not included)...[facility] HospitalComment on above:Result Comment: Electronically Signed By: Landon Tidwell PA-C\.br\Date and Time Signed: 06/22/2513:18 EDT\.br\Electronically Co-Signed By: Jorge Mcintosh DO\.rufino\Date and Time Co-Signed: 06/23/24 07:08 EDTFamily Medicine Office/Clinic Noteon 45-59-0108Yzgzos Medicine Office/Clinic NoteFamily Medicine Office/Clinic Note Chief Complaint Establish care HPI Staff Establish Care: History: Any previous diagnosis: see problem list History of seeing any specialist: neuro surgeon- Luciana Hernandez When was your last doctors visit: over 6 months Last provider: Mayra Rosas Any recent labs: 05/23/24 Health Maintenance UTD: Colonoscopy: 4 years ago Mammogram: denies Pelvic/Pap: hx of hysterectomy Acute: Current issues/complaints: Pt would like to discuss her weight, Pt does note she has bulging disk in her L4-L5 and L1. History of Present Illness Jerad is a 49 year old female who presents to establish care. She was a patient of Leelee Rosas in the past. She has a history of lumbar spine surgery per Dr Adams in [place] and she has had 2 low back surgeries. She reports she was at 2 weeks ago for pain management and apparently they told her she was not surgical candidate due to obesity. Currently her weight is a factor - she is weighing 273lbs today - ideally she would like to be around 180lbs. She reports she has gained about 80lbs inthe past year since her back surgery - she reports her left leg is now numb she believes her most recent back surgery made her back worse. She has fallen in the past due to the leg being numb. She apparently had an [employer] to the BLE prior to her most recent surgery but not after. She was seeing pain management through - Dr Melgoza - she quit seeing him because he started her on methadone and shecouldn't function on this medication and he wanted her to go to PT and she couldn't do it . She saw Dr Sher in the past who started her on Lyrica and this made her legs swell - she stopped seeing him because she was suppose to see a neurosurgeon. She had nerve stimulator in the lumbar spine whichthey had to remove due to a blood clot - she reports it was helpful for the pain, however, she got an infection and blood clot and this is apparently no longer an option. All of the information provided in the above text is what I gathered from the patient and her spouse. 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 She is working on disability. For pain control - she has tried and failed the following medications: Lyrica (caused edema), GBP (migraines), methodone (made her feel drugged and out of it). Current duloxetine at 20mg is doing nothing for her pain. I am going to increase this dose to 60mg daily. She is on cyclobenzaprine 10 TID as needed which is mildly effective. She is seeing Dr Joya neurosurgery in [place] for an alternative opinion. She sees a liver specialist in [place] due to having Hep C and the treatment in the past. She is scheduled to get a liver scan today as a routine follow up. Dr Owens is her liver specialist. Family history: her parents are - her mother had COPD and her father had lung cancer. Her father had a heart attack earlier in life and he did have stenting done. She had a sister that froman OD of street drugs, and she has 1 brother who is alive and well. She has 4 children - all boys who are all alive and well. She only has 1 child living at home and he is 19. Review of Systems PHQ Score Initial Depression Screen Score: 0 SCORE Physical Exam Vitals & Measurements HR: 99(Peripheral) BP: 122/76 SpO2: 100% HT: 63 in HT: 160 cm WT: 123.9 kg WT: 273.152 lb BMI: 48.4 rocking in the chair constantly due to pain. reports constant low back pain and spasm. Assessment/Plan 1. Chronic back pain (M54.9: Dorsalgia, unspecified) refill pain medication for very very as needed pain #20 pending eval per neurosurg referral to dr calero 2. Bipolar disorder (F31.9: Bipolar disorder, unspecified) stables 3. Chronic hepatitis C (B18.2: Chronic viral hepatitis C) stable - working with liver specialist Ordered: Lab Specimen Collect [id number] Chronic lumbar pain (M54.50: Low back pain, unspecified) Ordered: oxycodone, 5 mg = 1 tab(s), Oral, BID, PRN for pain, # 20 tab(s), Refills(s) 0, Pharmacy: [facility]/pharmacy #[id number], 160, cm, 06/23/24 9:23:00 EDT, Height/Length Dosing, 123.9, kg, 06/23/24 9:23:00 EDT, Weight Dosing [facility] External Ambulatory Referral Muscle spasm (M62.838: Other muscle spasm) Ordered: cyclobenzaprine, 10 mg = 1 tab(s), Oral, TID, PRN for spasm, # 30 tab(s), Refills(s) 1, Pharmacy: [facility]/pharmacy #[id number], 160, cm, 06/23/24 9:23:00 EDT, Height/Length Dosing, 123.9, kg, 06/23/24 9:23:00 EDT, Weight Dosing oxycodone, 5 mg = 1 tab(s), Oral, BID, PRN for pain, # 20 tab(s), Refills(s) 0, Pharmacy: [facility]/pharmacy #[id number], 160, cm, 06/23/24 9:23:00 EDT, Height/Length Dosing, 123.9, kg, 06/23/24 9:23:00 EDT, Weight Dosing BEATRIZ w/Reflex if POS C-Reactive Protein High Sensitivity HgbA1c VALERIE and PE, Serum Lipid Panel Lyme Antibodies w/rflx to IgG/IgM Sedimentation Rate Automated TSH With T4fr Reflex Vitamin B12 Level Neuropathy (G62.9: Polyneuropathy, unspecified) Ordered: duloxetine, 60 mg = 1 cap(s), Oral, Daily, (more content not included)...Normal [facility] HospitalComment on above:Result Comment: Electronically Signed By: JUDI BEYER, FLOR\.br\Date and Time Signed: 06/23/24 14:01 EDTHEMATOLOGYOrdered By: Mishel Bartholomew on 91-70-7971LZN (Bld) [Velocity]21 mm/h Normal0 - 34 mm/hrHARPER COUNTY COMM[facility]ITY [facility] BbvvTfmnEJGtvX1kyl 08-42-3401VjI6v (Bld) [Mass fraction] 5.8 %Normal<=5.9Ohio[facility] Berger HospitalComment on above:Performed By: #### [id number] #### [facility] [address] [place], [place] [address]Tuchf Panelon 01-08-7744Ejrecngtpgh [Mass/Vol]169 mg/dLNormal 120-200Ohio[facility] Berger HospitalComment on above:Performed By: #### [id number] #### [facility] [address] [place], [place] [address]Tffnoszqizs in HDL [Mass/Vol]50 mg/dLInvalid Interpretation CodeOhiohealth Berger HospitalComment on above:Result Comment: '>= 60 LOW RISK' '<= 40 HIGH RISK'Performed By: #### [id number] #### [facility] [address] [place], [place] [address]Drtgdbvtocy in LDL [Mass/Vol]114 mg/dLNormal<=129Ohio[facility] Berger HospitalComment on above:Performed By: #### [id number] #### [facility] [address] [place], [place] [address]Hkjdftnpivr in VLDL [Mass/Vol]28 mg/dLNormal7-40[facility] Berger HospitalComment on above:Performed By: #### [id number] #### [facility] [address] [place], [place] [address]Aszdepdchmrb [Mass/Vol]141 mg/dLNormal<=149Ohio[facility] Berger HospitalComment on above:Performed By: #### [id number] #### [facility] [address] [place], [place] [address]Iim Rate Automatedon 49-31-3578TSF (Bld) [Velocity]21 mm/h Normal0-34Ohiohealth Berger HospitalComment on above:Performed By: #### [id number] #### [facility] [address] [place], [place] [address]IOF With T4fr Reflexon 15-93-2932CFH Qn0.62 m[IU]/LNormal 0.34-5.60[facility] Berger HospitalComment on above:Performed By: #### [id number] #### [facility] [address] [place], [place] [address]ME ABDOMEN LIMITED LIVERon 02-51-3943ZS ABDOMEN LIMITED LIVER Interpreted By: Harshad Tran, STUDY: US ABDOMEN LIMITED LIVER; 06/23/2024 12:49 pm INDICATION: Signs/Symptoms:Liver cancer screening. ,Z86.19 Personal history of other infectious and parasitic diseases,K74.02 Hepatic fibrosis, advanced fibrosis COMPARISON: None. ACCESSION NUMBER(S): [id number] ORDERING CLINICIAN: CHIDI JOSEPH TECHNIQUE: Multiple images of the right upper quadrant were obtained. FINDINGS: LIVER: The liver measures 16.8 cm and is diffusely echogenic in appearance, consistent with diffuse fatty infiltration. The resulting increased beam attenuation thereby limiting evaluation of the liver for focal lesions. Within the limitations, no focal lesions are seen. GALLBLADDER: Surgically absent. BILE DUCTS: No evidence of intra or extrahepatic biliary dilatation is identified; the common bile duct measures 0.7 cm. PANCREAS: The visualized pancreas is unremarkable in appearance. RIGHT KIDNEY: The right kidney measures 11.5 cm in length. The renal cortical echogenicity and thickness are within normal limit. No hydronephrosis or renal calculi are seen. IMPRESSION: Hepatic steatosis. No intrahepatic lesions are noted. The patient is status post cholecystectomy. Otherwise, grossly unremarkable right upper quadrant ultrasound. MACRO: None Signed by: Harshad Tran 06/24/2024 5:48 AM Dictation workstation: [id number] [facility] Clinical Summaryon [id number] Clinical SummaryED Clinical Summary [address] [address] ED Clinical Summary Person Information Name: JERAD TRACY [place] Age: 49 Years : 1975 Sex: Female Language: Malagasy PCP: FLOR JONES Marital Status: Visit Id: Visit Reason: Back pain; LOWER BACK PAIN Speciality: Acuity: 4 Enc Type: Emergency Med Service: Emergency Arrival: 06/22/2024 11:19:02 Discharge: 06/22/2024 11:44:09 LOS: 000 00:25 Checkin: 06/22/2024 11:19:02 Checkout: 06/22/2024 11:44:09 Dispo Type: Home (Routine DC) EVENTS: Event Name Event Status Request Date/Time Start Date/Time Complete Date/Time Arrive Complete 06/22/2024 11:19:02 06/22/2024 11:19:02 06/22/2024 11:19:02 Document Home Meds Request 06/22/2024 11:19:02 Triage Complete 06/22/2024 11:19:02 06/22/2024 11:22:54 06/22/2024 11:22:54 Bed Assign Complete 06/22/2024 11:20:31 06/22/2024 11:20:31 06/22/2024 11:20:31 Dr Exam Complete 06/22/2024 11:20:31 06/22/2024 11:26:44 06/22/2024 11:26:44 RN Exam Complete 06/22/2024 11:20:31 06/22/2024 11:23:45 06/22/2024 11:23:45 Registration Complete 06/22/2024 11:26:44 06/22/2024 11:33:01 06/22/2024 11:33:01 Dr Exam Complete 06/22/2024 11:27:21 06/22/2024 11:27:21 06/22/2024 11:27:21 Reg Complete Request 06/22/2024 11:33:01 Reg Bed Request Complete 06/22/2024 11:33:01 06/22/2024 11:33:01 06/22/2024 11:33:01 Meds Admin Complete 06/22/2024 11:34:50 06/22/2024 11:43:10 Discharge Complete 06/22/2024 11:35:16 06/22/2024 11:44:18 06/22/2024 11:44:18 Transfer Complete 06/22/2024 11:44:18 06/22/2024 11:44:18 06/22/2024 11:44:18 ADDRESS: [address] [place] [address] [place] [id number] PHYS DOC NOTES: MEDICAL INFORMATION: Prescriptions Given: Medications to Continue with No Changes Other Medications acetaminophen-oxycodone (Percocet 5 mg-325 mg oral tablet) 1 Tablets By Mouth every 6 hours as needed Pain 8-10. Refills: 0. azithromycin (azithromycin 250 mg Tab) 250 Milligram By Mouth As Directed. Take two tabs by mouth on day one, then one tab daily. Refills: 0. cyclobenzaprine (cyclobenzaprine 10 mg Tab) 1 Tablets By Mouth 3 times a day as needed for spasm. Refills: 0. cyclobenzaprine (cyclobenzaprine 10 mg Tab) 1 Tablets By Mouth 3 times a day as needed for spasm. Refills: 0. cyclobenzaprine (cyclobenzaprine 10 mg Tab) [...] hours off daily. Refills: 0. lidocaine topical (lidocaine Top 5% [...] and 12 hours off daily. Refills: 0. naproxen (Naprosyn 500 mg Tab) 1 Tablets By Mouth 2 times a day as needed for pain. Refills: 0. ondansetron (Zofran 4 mg Tab) [...] daily x3 days.. Refills: 0. predniSONE (predniSONE 10 mg Tab) 1 Tablets By Mouth As Directed. Take 3 tabs by mouth daily x3 days, then 2 tabs daily x3 days, then 1 tab daily x3 days.. Refills: 0. predniSONE (predniSONE 20 mg Tab) 3 By Mouth every day. Refills: 0. PATIENT EDUCATION INFORMATION: Instructions: Chronic Back Pain Follow up: With: Address: Marty: KRISTAN LAU [address] [place] [address] [facility] () In 3 days 06/25/2024 Comments: Call Dr for diagnosis based follow up DIAGNOSIS: Chronic back pain; Other chronic painNormalOn License Of [facility] Patient Summaryon [id number] Patient SummaryED Patient Summary [address] [address] Patient Discharge Instructions Person Information Name: JERAD TRACY Age: 49 Years Arrival Date: 06/22/2024 11:19:02 Discharge Diagnosis: Chronic back pain; Other chronic pain Primary Care Physician: FLOR JONES Provider Information Primary Provider: Jorge Mcintosh DO Advanced Dietetic Intern:Landon Tidwell PA-C The exam and treatment you received in the Emergency Department were for an urgent problem and are not intended as complete care. It is important that you follow up with a doctor, nurse practitioner,or physician???s construction assistant for ongoing care. If your symptoms become worse or you do not improve asexpected and you are unable to reach your usual health care provider, you should return to the Emergency Department. We are available 24 hours a day. JERAD TRACY has been given the following list of patient education materials, prescriptions andfollow-up instructions: Follow-up Instructions: With: Address: When: KRISTANRadha LAU [address] [place] [address] [facility] (1) In 3 days 06/25/2024 Comments: Call Dr for diagnosis based follow up In the event that this physician does not participate in your insurance network, please consult with your insurance company to find a nearby participating provider. Patient Education Materials: Chronic Back Pain A MESSAGE TO ALL PATIENTS REGARDING OPIOIDS PRESCRIPTION OPIOIDS: WHAT YOU NEED TO KNOW Prescription opioids can be used to help relieve evcfujfs-gj-auymlz pain and are often prescribed following a [...] guidance from the Food and Drug Administration (www.fda.gov/Drugs/ResourcesForYou). ??? Visit www.cdc.gov/drugoverdose to learn about the risks of opioids abuse and overdose. ??? If you believe you (more content not included)...[facility] HospitalGlucose Test strip manual (Bld) [Mass/Vol]on 56-92-6888Bfqqjdt [Mass/Vol] 122 mg/uXOgiz47 - 99 mg/dLJoint Township District Memorial HospitalInterpretation and review of laboratory resultsAbProMedica Fostoria Community HospitalUnWood County HospitalGlucose [Mass/Vol]122 mg/mFIoee98-83SbvtyhvujeSamaritan North Health CenterComment on above:Performed By: #### 2341-6 ####JOLENE Cantu ([id number])[facility] ([facility])[id number] [place] [address] Bacteria identified Cx Nom (U)Ordered By: Ariel Espinal on 06-13-2024 Interpretation and review of laboratory resultsAbProMedica Fostoria Community HospitalUnWood County HospitalUrine CultureOrdered By: Ariel Espinal on 31-01-9234Usqavnzm identified Cx Nom (U)>=100,000 CFU/mL Klebsiella pneumoniae/variicolaAbProMedica Fostoria Community HospitalBasic metabolic 2000 panelon 45-31-1636Najxa gap [Moles/Vol]13 mmol/L10 - 20 mmol/[facility] HospitalCalcium [Mass/Vol]8.5 mg/dLLow8.6 - 10.6 mg/dLUnWood County HospitalChloride [Moles/Vol]107 mmol/L98 - 107 mmol/[facility] HospitalCO2 [Moles/Vol]23 mmol/L21 - 32 mmol/[facility] HospitalCreatinine [Mass/Vol]0.64 mg/dL0.50 - 1.05 mg/dLUnWood County HospitaleGFR- PINFUniShelby Memorial HospitalComment on above:Calculations of estimated GFR are performed using the 2020 CKD-EPI Study Refit equation without therace variable for the IDMS-Traceable creatinine methods. https://jasn.asnjournals.org/content//ASN.7273613123 Glucose [Mass/Vol]103 mg/tWNojg37 - 99 mg/dLUnWood County Hospital Interpretation and review of laboratory resultsAbProMedica Fostoria Community HospitalPotassium [Moles/Vol]3.9 mmol/L3.5 - 5.3 mmol/[facility] HospitalSodium [Moles/Vol]139 mmol/L136 - 145 mmol/LUnWood County HospitalUrea nitrogen [Mass/Vol]10 mg/dL6 - 23 mg/dLJoint Township District Memorial HospitalUnWood County HospitalAnion gap [Moles/Vol]13 mmol/LNormal 10-20UnSamaritan North Health CenterComment on above:Order Comment: Lab to collectPerformed By: #### 66962-8 ####JOLENE Cantu ([id number])[facility] ([facility])[address] [place], [place] [address]Yrchibh [Mass/Vol] 8.5 mg/dLLow8.6-10.6[facility] Memorial HospitalComment on above:Order Comment: Lab to collectPerformed By: #### 17227-0 ####JOLENE Cantu ([id number])[facility] ([facility])[address] [place], [place] [address]Drbtlgsi [Moles/Vol]107 mmol/EHadzzb66-518LyhkzmtxndSamaritan North Health Center Comment on above:Order Comment: Lab to collectPerformed By: #### 85668-6 ####JOLENE Cantu ([id number])[facility] ([facility])[address] [place], [place] [address]PV1 [Moles/Vol]23 mmol/IMkipmo28-43QiwxfbfcudSamaritan North Health CenterComment on above:Order Comment: Lab to collectPerformed By: #### 23127-6 ####JOLENE Cantu ([id number])[facility] ([facility])[address] [place], [place] [address]Tzdsdfthqy [Mass/Vol]0.64 mg/dLNormal0.50-1.05[facility] Memorial HospitalComment on above:Order Comment: Lab to collectPerformed By: #### 53447-7 ####JOLENE RONQUILLO L ([id number])[facility] ([facility])[address] [place], [place] [address]JMP/1.73 sq M.predicted MDRD (S/P/Bld) [Vol rate/Area] mL/min/{1.73_m2}Normal>60UnSamaritan North Health CenterComment on above:Order Comment: Lab to collectResult Comment: Calculations of estimated GFR are performed using the 2020 CKD-EPI Study Refit equation without the race variable for the IDMS-Traceable creatinine methods. https://jasn.asnjournals.org/content/early//ASN.4108871289Kvtbohfzj By: #### 82944-8 ####JOLENE Cantu ([id number])[facility] ([facility])[address] [place], [place] [address]Opdwhrm [Mass/Vol]103 mg/cWVvvr15-69IvomphqrrfSamaritan North Health CenterComment on above:Order Comment: Lab to collect Performed By: #### 87351-2 ####JOLENE Cantu ([id number])[facility] ([facility])[address] [place], [place] [address]Cjgldsirk [Moles/Vol]3.9 mmol/LNormal3.5-5.3 [facility] Memorial HospitalComment on above:Order Comment: Lab to collectPerformed By: #### 00052-6 ####JOLENE Cantu ([id number])[facility] ([facility])[address] [place], [place] [address]Ycdmui [Moles/Vol]139 mmol/LNormal 136-145UnSamaritan North Health CenterComment on above:Order Comment: Lab to collectPerformed By: #### 42196-1 ####JOLENE Cantu ([id number])[facility] ([facility])[address] [place], [place] [address]Wdcb nitrogen [Mass/Vol]10 mg/dLNormal6-23UnSamaritan North Health CenterComment on above:Order Comment: Lab to collectPerformed By: #### 19520-5 ####JOLENE Cantu ([id number])[facility] ([facility])[address] [place], [place] [address]M- reactive proteinon 54-21-8885SGS [Mass/Vol]1.07 mg/dLHighNINF - 1.00 mg/dL [facility] HospitalCB panel Auto (Bld)on 73-10-1138Xvifttsmpbe distribution width (RBC) [Ratio]13.9 %11.5 - 14.5 %[facility] Memorial HospitalHematocrit (Bld) [Volume fraction]39.1 %36.0 - 46.0 %[facility] Memorial HospitalHemoglobin (Bld) [Mass/Vol]12.2 g/dL12.0 - 16.0 g/dL [facility] HospitalInterpretation and review of laboratory results AbnormalSelect Medical Cleveland Clinic Rehabilitation Hospital, Edwin ShawH (RBC) [Entitic mass]28.8 pg26.0 - 34.0 pgSelect Medical Cleveland Clinic Rehabilitation Hospital, Edwin ShawHC (RBC) [Mass/Vol]31.2 g/dLLow32.0 - 36.0 g/dLSelect Medical Cleveland Clinic Rehabilitation Hospital, Edwin ShawV (RBC) [Entitic vol]92 fL80 - 100 fLUniShelby Memorial HospitalNucleated RBC/100 WBC (Bld) [Ratio]0 % [facility] Memorial HospitalPlatelets (Bld) [#/Vol]307 10*3/[facility]ers HospitalRBC (Bld) [#/Vol]4.23 10*6/[facility]riners HospitalWBC (Bld) [#/Vol]6.3 10*3/[facility]ers HospitalUnWood County HospitalErythrocyte distribution width (RBC) [Ratio]13.9 %Normal 11.5-14.5[facility] Memorial HospitalComment on above:Order Comment: Lab to collectPerformed By: #### 24667-6 ####JOLENE Cantu ([id number])[facility] ([facility])[address] [place], [place] [address]Sxsbliqvfk (Bld) [Volume fraction]39.1 %Lsatby40.0-46.0[facility] Memorial HospitalComment on above:Order Comment: Lab to collectPerformed By: #### 73542-5 ####JOLENE Cantu ([id number])[facility] ([facility])[address] [place], [place] [address]Gmlyoyuoks (Bld) [Mass/Vol]12.2 g/qBGwnbib60.0-16.0[facility] Memorial HospitalComment on above:Order Comment: Lab to collectPerformed By: #### 07725-4 ####JOLENE Cantu ([id number])[facility] ([facility])[address] [place], [place] [address]CZY (RBC) [Entitic mass]28.8 ikAaenzo74.0-34.0 [facility] Memorial HospitalComment on above:Order Comment: Lab to collectPerformed By: #### 06631-9 ####JOLENE Cantu ([id number])[facility] ([facility])[address] [place], [place] [address]JBZD (RBC) [Mass/Vol]31.2 g/dLLow 32.0-36.0UnSamaritan North Health CenterComment on above:Order Comment: Lab to collectPerformed By: #### 80451-3 ####JOLENE Cantu ([id number])[facility] ([facility])[address] [place], [place] [address]NUO (RBC) [Entitic vol]92 oCGschfx41-733SqamujolqgSamaritan North Health CenterComment on above:Order Comment: Lab to collectPerformed By: #### 07376-5 ####JOLENE Cantu ([id number])[facility] ([facility])[address] [place] [address] Nucleated RBC/100 WBC (Bld) [Ratio]0.0 /100 WBCsNormal0.0-0.0UnSamaritan North Health CenterComment on above:Order Comment: Lab to collect Performed By: #### 29627-9 ####JOLENE Cantu ([id number])[facility] ([facility])[address] [place], [place] [address]Mvhifzuph (Bld) [#/Vol]307 x10*3/uLNormal 150-450UnSamaritan North Health CenterComment on above:Order Comment: Lab to collectPerformed By: #### 28810-7 ####JOLENE Cantu ([id number])[facility] ([facility])[address] [place], [place] [address]VYU (Bld) [#/Vol] 4.23 x10*6/uLNormal4.00-5.20[facility] Memorial HospitalComment on above:Order Comment: Lab to collectPerformed By: #### 91582-6 ####JOLENE aCntu ([id number])[facility] ([facility])[address] [place], [place] [address]TGT (Bld) [#/Vol]6.3 x10*3/uLNormal4.4-11.3[facility] Memorial HospitalComment on above:Order Comment: Lab to collectPerformed By: #### 04957-2 ####JOLENE Cantu ([id number])[facility] ([facility])[address] [place], [place] [address]JHV [Mass/Vol]on 82-96-3190Thkhgiyrmecvcl and review of laboratory results AbnormalLakeHealth Beachwood Medical CenterESR Westergren method (Bld) [Velocity]on 27-87-1363HWS (Bld) [Velocity]30 mm/hHigh0 - 20 mm/[facility] HospitalInterpretation and review of laboratory resultsAbnormalUMercy Health Perrysburg HospitalExtra Urine Castro Tubeon 70-31-7505Czasi TubeHold for add-ons. [facility] Memorial HospitalComment on above:Auto resulted.[facility] Memorial HospitalMR Brain WO contraston . No evidence of acute infarct, intracranial mass effect or midline shift. I personally reviewed the images/study, and I agree with the findings as stated above by resident physician Dr. Millicent Cano MD. This study was interpreted at [facility], [place], [place]. MACRO: None Signed by: Oscar Sabillon 06/12/2024 2:26 AM Dictation workstation: [id number] By: Oscar Sabillon and Meyers Emily STUDY: MR BRAIN WO IV CONTRAST; 06/11/2024 11:01 pm INDICATION: Signs/Symptoms:CVA R/O. COMPARISON: CT head without contrast 12/10/2019 ACCESSION NUMBER(S): [id number] ORDERING CLINICIAN: CASEY LEON TECHNIQUE: Axial T2, FLAIR, DWI, gradient echo T2 and sagittal and coronal T1 weighted images of brain were acquired. FINDINGS: CSF Spaces: The ventricles, sulci and basal cisterns are within normal limits. Parenchyma: There is no diffusion restriction abnormality to suggest acute infarct. There is a FLAIR hyperintensity in the left ceballos radiata, axial image 11, which may be physiologic or may represent sequela of migraines or other chronic etiologies. No intracranial hemorrhage. There is no mass effect or midline shift. Paranasal Sinuses and Mastoids: Visualized paranasal sinuses and mastoid air cells are unremarkable. MMODALOscar Sabillon, DO - 06/12/2024 Interpreted By: Oscar Sabillon and Meyers Emily STUDY: MR BRAIN WO IV CONTRAST; 06/11/2024 11:01 pm INDICATION: Signs/Symptoms:CVA R/O. COMPARISON: CT head without contrast 12/10/2019 ACCESSION NUMBER(S): [id number] ORDERING CLINICIAN: CASEY LEON TECHNIQUE: Axial T2, FLAIR, DWI, gradient echo T2 and sagittal and coronal T1 weighted images of brain were acquired. FINDINGS: CSF Spaces: The ventricles, sulci and basal cisterns are within normal limits. Parenchyma: There is no diffusion restriction abnormality to suggest acute infarct. There is a FLAIR hyperintensity in the left ceballos radiata, axial image 11, which may be physiologic or may represent sequela of migraines or other chronic etiologies. No intracranial hemorrhage. There is no mass effect or midline shift. Paranasal Sinuses and Mastoids: Visualized paranasal sinuses and mastoid air cells are unremarkable. IMPRESSION: 1. No evidence of acute infarct, intracranial mass effect or midline shift. I personally reviewed the images/study, and I agree with the findings as stated above by resident physician Dr. Millicent Cano MD. This study was interpreted at [place], [place]. MACRO: None Signed by: Oscar Sabillon 06/12/2024 2:26 AM Dictation workstation: [id number] [facility] Work Phone: [facility] Work Phone: Lumbar spine WO and W contrast Karen . Continued interval decrease in a rim enhancing fluid collection within the subcutaneous fat overlying the posterior elements of L4. This may represent postsurgical seroma, however as before sterility of this collection can not be determined on imaging. No new fluid collections are visualized. 2. Stable postsurgical change of left-sided laminectomy at L4-L5 with ventral epidural scarring greater on the left. Moderate bilateral foraminal stenosis at L4-L5 similar to prior. I personally reviewed the images/study, and I agree with the findings as stated above by resident physician Dr. Millicent Cano MD. This study was interpreted at [place], [place]. MACRO: None Signed by: Oscar Sabillon 06/12/2024 2:45 AM Dictation workstation: [id number] MMODALInterpreted By: Oscar Sabillon and Meyers Emily STUDY: MR LUMBAR SPINE W AND WO IV CONTRAST; 06/11/2024 11:01 pm INDICATION: Signs/Symptoms:Low back pain with numbness to the left leg. COMPARISON: MRI lumbar spine 05/16/2024 ACCESSION NUMBER(S): [id number] ORDERING CLINICIAN: MAMI HERNANDEZ TECHNIQUE: Sagittal T1, T2, STIR, axial T1 and T2 weighted images of the lumbar spine were acquired. Additional image acquisition was obtained following intravenous administration of 20 mL Dotarem gadolinium based contrast. FINDINGS: Please note, examination is partially limited secondary to motion artifact. There are 5 lumbarized vertebral bodies, with the last intervertebral body disc space labeled L5-S1. Alignment: The vertebral alignment is maintained. Vertebrae/Intervertebral Discs: The vertebral bodies demonstrate expected height. Postsurgical changes are again noted from left L4 hemilaminectomy. The marrow signal is within normal limits. Mild multilevel disc desiccation and loss of intervertebral body disc height at L4-L5 with associated degenerative endplate changes. Conus: The lower thoracic cord appears unremarkable. The conus terminates at L2. T12-L1: There is no significant central canal or neural foraminal stenosis. Stable appearance of the left neural foraminal perineural cyst. L1-2: No significant disc bulge or herniation. No central canal foraminal stenosis. L2-3: No significant disc bulge or herniation. No central canal foraminal stenosis. L3-4: No significant disc bulge or herniation. No central canal foraminal stenosis. L4-5: Similar appearance of central disc osteophyte complex and bilateral hypertrophic facet arthropathy contributing to moderate bilateral foraminal stenosis. Postsurgical change of left laminectomy with similar extent of surrounding enhancement and ventral epidural scarring, greater on the left. No significant central canal stenosis. L5-S1: Small disc bulge and facet hypertrophy. Mild right foraminal stenosis. No significant left foraminal stenosis or central canal stenosis. Interval decrease of a peripherally enhancing T2 hyperintense fluid collection within the subcutaneous tissues at L3-L4 now measuring up to 4.4 x 2.2 x 1.3 cm (series 13, image 18), previously measuring up to 5.6 x 2.4 x 2.5 cm on prior exam when measured in a similar fashion. Surrounding subcutaneous edema. Unchanged postsurgical edema in the medial left posterior paravertebral muscles posterior to the laminectomy bed. ADRIÁN MMOscar Mendoza, - 06/12/2024 Interpreted By: Oscar Sabillon and Meyers Emily STUDY: MR LUMBAR SPINE W AND WO IV CONTRAST; 06/11/2024 11:01 pm INDICATION: Signs/Symptoms:Low back pain with numbness to the left leg. COMPARISON: MRI lumbar spine 05/16/2024 ACCESSION NUMBER(S): [id number] ORDERING CLINICIAN: MAMI HERNANDEZ TECHNIQUE: Sagittal T1, T2, STIR, axial T1 and T2 weighted images of the lumbar spine were acquired. Additional image acquisition was obtained following intravenous administration of 20 mL Dotarem gadolinium based contrast. FINDINGS: Please note, examination is partially limited secondary to motion artifact. There are 5 lumbarized vertebral bodies, with the last intervertebral body disc space labeled L5-S1. Alignment: The vertebral alignment is maintained. Vertebrae/Intervertebral Discs: The vertebral bodies demonstrate expected height. Postsurgical changes are again noted from left L4 hemilaminectomy. The marrow signal is within normal limits. Mild multilevel disc desiccation and loss of intervertebral body disc height at L4-L5 with associated degenerative endplate changes. Conus: The lower thoracic cord appears unremarkable. The conus terminates at L2. T12-L1: There is no significant central canal or neural foraminal stenosis. Stable appearance of the left neural foraminal perineural cyst. L1-2: No significant disc bulge or herniation. No central canal foraminal stenosis. L2-3: No significant disc bulge or herniation. No central canal foraminal stenosis. L3-4: No significant disc bulge or herniation. No central canal foraminal stenosis. L4-5: Similar appearance of central disc osteophyte complex and bilateral hypertrophic facet arthropathy contributing to moderate bilateral foraminal stenosis. Postsurgical change of left laminectomy with similar extent of surrounding enhancement and ventral epidural scarring, greater on the left. No significant central canal stenosis. L5-S1: Small disc bulge and facet hypertrophy. Mild right foraminal stenosis. No significant left foraminal stenosis or central canal stenosis. Interval decrease of a peripherally enhancing T2 hyperintense fluid collection within the subcutaneous tissues at L3-L4 now measuring up to 4.4 x 2.2 x 1.3 cm (series 13, image 18), previously measuring up to 5.6 x 2.4 x 2.5 cm on prior exam when measured in a similar fashion. Surrounding subcutaneous edema. Unchanged postsurgical edema in the medial left posterior paravertebral muscles posterior to the laminectomy bed. IMPRESSION: 1. Continued interval decrease in a rim enhancing fluid collection within the subcutaneous fat overlying the posterior elements of L4. This may represent postsurgical seroma, however as before sterility of this collection can not be determined on imaging. No new fluid collections are visualized. 2. Stable postsurgical change of left-sided laminectomy at L4-L5 with ventral epidural scarring greater on the left. Moderate bilateral foraminal stenosis at L4-L5 similar to prior. I personally reviewed the images/study, and I agree with the findings as stated above by resident physician Dr. Millicent Cano MD. This study was interpreted at [place], [place]. MACRO: None Signed by: Oscar Sabillon 06/12/2024 2:45 AM Dictation workstation: [id number] [facility] Work Phone: mr Lumbar spine WO and W contrast IVOrdered By: Oscar Sabillon on [id number] County [facility] Work Phone: Bacteria identifiedon [id number] identified Cx Nom (U)Test: Urine Culture Specimen Source: Clean Catch/Voided Specimen Type: Urine Specimen Date: 06/11/20242116 Result Date: 06/13/2024 115 Result Status: Final result Abnormal: Yes Resulting Lab: [facility] [address] [place] [address] CULTURE >=100,000 CFU/mL Klebsiella pneumoniae/variicola (Abnormal) SUSCEPTIBILITY Klebsiella pneumoniae/variicola METHOD MICROSCAN AMOXICILLIN/CLAVULANATE <=8/4 ug/ml Susceptible AMPICILLIN >16.000 ug/ml Resistant AMPICILLIN/SULBACTAM <=4/2 ug/ml Susceptible CEFAZOLIN <=2 ug/ml Susceptible CEFAZOLIN (UNCOMPLICATED UTIS ONLY) <=2 ug/ml Susceptible CIPROFLOXACIN <=0.250 ug/ml Susceptible GENTAMICIN <=2.000 ug/ml Susceptible NITROFURANTOIN <=32 ug/ml Susceptible PIPERACILLIN/TAZOBACTAM <=8.000 ug/ml Susceptible TRIMETHOPRIM/SULFAMETHOXAZOLE <=2/38 ug/ml SusceptibleAbRiverview Health InstituteComment on above:Performed By: #### 630-4 ####JOLENE Cantu ([id number])[facility] ([facility])[address] [place], [place] [address]C reactive proteinon [id number] [Mass/Vol]1.07 mg/dLHigh<1.00[facility] Memorial HospitalComment on above:Performed By: #### 55880-0 #### JOLENE Cantu ([id number]) [facility] ([facility]) [address] [place], [place] [address]CBC W Auto Differential panel (Bld)on [id number] (Bld) [#/Vol]0.02 10*3/uLUniversity Hospitals of ClevelandBasophils/100 WBC (Bld)0.2 %0.0 - 2.0 %[facility] HospitalEosinophils (Bld) [#/Vol] 0.15 10*3/[facility] HospitalEosinophils/100 WBC (Bld)1.6 %0.0 - 6.0 %[facility] HospitalErythrocyte distribution width (RBC) [Ratio]13.6 %11.5 - 14.5 %[facility] HospitalHematocrit (Bld) [Volume fraction]39.1 %36.0 - 46.0 %[facility] HospitalHemoglobin (Bld) [Mass/Vol]13 g/dL12.0 - 16.0 g/dLUnWood County HospitalImmamount st. mary hospital granulocytes (Bld) [#/Vol]0.03 10*3/[facility] HospitalImchristian hospital granulocytes/100 WBC (Bld)0.3 %0.0 - 0.9 %[facility] Comment on above:Immature Granulocyte Count (IG) includes promyelocytes, myelocytes and metamyelocytes but does not include bands. Percent differential counts (%) should be interpreted in the context of the absolute cell counts (cells/UL).Lymphocytes (Bld) [#/Vol]2.07 10*3/[facility] HospitalLymphocytes/100 WBC (Bld)21.4 %13.0 - 44.0 %[facility] HospitalMCH (RBC) [Entitic mass]28.8 pg26.0 - 34.0 pgUnWood County HospitalMCHC (RBC) [Mass/Vol]33.2 g/dL32.0 - 36.0 g/dLSelect Medical Cleveland Clinic Rehabilitation Hospital, Edwin ShawV (RBC) [Entitic vol]87 fL80 - 100 fLUniShelby Memorial HospitalMonocytes (Bld) [#/Vol]0.51 10*3/[facility] Monocytes/100 WBC (Bld)5.3 %2.0 - 10.0 %[facility] Neutrophils (Bld) [#/Vol]6.89 10*3/[facility] HospitalComment on above:Percent differential counts (%) should be interpreted in the context of the absolute cell counts (cells/uL).Neutrophils/100 WBC (Bld)71.2 %40.0 - 80.0 % [facility] HospitalNucleated RBC/100 WBC (Bld) [Ratio]0 % [facility] HospitalPlatelets (Bld) [#/Vol]348 10*3/[facility] [facility] HospitalRBC (Bld) [#/Vol]4.51 10*6/[facility] HospitalWBC (Bld) [#/Vol]9.7 10*3/[facility]ers HospitalUnWood County HospitalBasophils (Bld) [#/Vol]0.02 x10*3/uLNormal0.00-0.10 [facility] HospitalComment on above:Performed By: #### 81754-5 #### JOLENE Cantu ([id number]) [facility] ([facility]) [address] [place], [place] [address]Akssndbxq/100 WBC (Bld)0.2 %Normal0.0-2.0UnSamaritan North Health CenterComment on above:Performed By: #### 61988-9 #### JOLENE Cantu ([id number]) [facility] ([facility]) [address] [place], [place] [address]Agqoytbmfbm (Bld) [#/Vol]0.15 x10*3/uLNormal0.00-0.70 [facility] Memorial HospitalComment on above:Performed By: #### 80424-6 #### JOLENE Cantu ([id number]) [facility] ([facility]) [address] [place], [place] [address]Nepvsantdhy/100 WBC (Bld)1.6 %Normal0.0-6.0UnSamaritan North Health CenterComment on above:Performed By: #### 90166-4 #### JOLENE Cantu ([id number]) [facility] ([facility]) [address] [place] [address] 24268Mhebdsddidl distribution width (RBC) [Ratio]13.6 %Normal 11.5-14.5[facility] Memorial HospitalComment on above:Performed By: #### 39825-4 #### JOLENE Cantu ([id number]) [facility] ([facility]) [address] [place] [address]Wsgotbnbzn (Bld) [Volume fraction]39.1 %Cwewyw38.0-46.0 [facility] Memorial HospitalComment on above:Performed By: #### 88606-4 #### JOLENE Cantu ([id number]) [facility] ([facility]) [address] [place] [address]Uuphtuxpcp (Bld) [Mass/Vol]13.0 g/mWNrxitf76.0-16.0UnSamaritan North Health CenterComment on above:Performed By: #### 79185-9 #### JOLENE Cantu ([id number]) [facility] ([facility]) [address] [place] [address] 98224Gglidtbr granulocytes (Bld) [#/Vol]0.03 x10*3/uLNormal 0.00-0.70UnSamaritan North Health CenterComment on above:Performed By: #### 22284-8 #### JOLENE Cantu ([id number]) [facility] ([facility]) [address] [place] [address]Oxjgbhza granulocytes/100 WBC (Bld)0.3 %Normal0.0-0.9 [facility] Memorial HospitalComment on above:Result Comment: Immature Granulocyte Count (IG) includes promyelocytes, myelocytes and metamyelocytes but does not include bands. Percent differential counts (%) should be interpreted in the context of the absolute cell counts (cells/UL). Performed By: #### 91448-8 #### JOLENE Cantu ([id number]) [facility] ([facility]) [address] [place] [address] 914[address]Lzvzoukrnjc (Bld) [#/Vol]2.07 x10*3/uLNormal1.20-4.80 [facility] Memorial HospitalComment on above:Performed By: #### 26453-3 #### JOLENE Cantu ([id number]) [facility] ([facility]) [address] [place], [place] [address]Sdzhdjrsbgc/100 WBC (Bld)21.4 %Wumfot04.0-44.0UnSamaritan North Health CenterComment on above:Performed By: #### 42350-7 #### JOLENE Cantu ([id number]) [facility] ([facility]) [address] [place], [place] [address]TKF (RBC) [Entitic mass]28.8 yqEqigkt86.0-34.0UnSamaritan North Health CenterComment on above:Performed By: #### 25826-3 #### JOLENE Cantu ([id number]) [facility] ([facility]) [address] [place], [place] [address]CAOD (RBC) [Mass/Vol]33.2 g/jYQnctzm44.0-36.0UnSamaritan North Health CenterComment on above:Performed By: #### 68955-5 #### JOLENE Cantu (69558) [facility] ([facility]) [address] [place], [place] [address]RCC (RBC) [Entitic vol]87 wQDkxukq36-897YxicbqmmfyMemorial Health System Marietta Memorial HospitalComment on above:Performed By: #### 16559-0 #### JOLENE Cantu ([id number]) [facility] ([facility]) [address] [place], [place] [address]Imhhthftw (Bld) [#/Vol]0.51 x10*3/uLNormal0.10-1.00UnSamaritan North Health CenterComment on above:Performed By: #### 29943-7 #### JOLENE Cantu ([id number]) [facility] ([facility]) [address] [place], [place] [address]Eglvsubzq/100 WBC (Bld)5.3 %Normal2.0-10.0UnSamaritan North Health CenterComment on above:Performed By: #### 86913-3 #### JOLENE Cantu (96027) [facility] ([facility]) [address] [place], [place] [address]Qerpawtnfxp (Bld) [#/Vol]6.89 x10*3/uLNormal1.20-7.70 [facility] Memorial HospitalComment on above:Result Comment: Percent differential counts (%) should be interpreted in the context of the absolute cell counts (cells/uL).Performed By: #### 47389-7 #### JOLENE Cantu (48875) [facility] ([facility]) [address] [place], [place] [address]Zznedrvyzur/100 WBC (Bld)71.2 %Ysrdax05.0-80.0UnSamaritan North Health CenterComment on above:Performed By: #### 01661-4 #### JOLENE Cantu ([id number]) [facility] ([facility]) [address] [place] [address] 489[address]Bwjjwjfrr RBC/100 WBC (Bld) [Ratio]0.0 /100 WBCsNormal0.0-0.0 [facility] Memorial HospitalComment on above:Performed By: #### 72182-8 #### JOLENE Cantu ([id number]) [facility] ([facility]) [address] [place], [place] [address]Yxqlmqsad (Bld) [#/Vol]348 x10*3/wWUzufpj713-378BglvhplfjeSamaritan North Health CenterComment on above:Performed By: #### 97673-4 #### JOLENE Cantu ([id number]) [facility] ([facility]) [address] [place] [address]AHY (Bld) [#/Vol]4.51 x10*6/uLNormal4.00-5.20UnSamaritan North Health CenterComment on above:Performed By: #### 89042-8 #### JOLENE Cantu ([id number]) [facility] ([facility]) [address] [place] [address] 90[address]AVL (Bld) [#/Vol]9.7 x10*3/uLNormal4.4-11.3UnSamaritan North Health CenterComment on above:Performed By: #### 08464-1 #### JOLENE Cantu ([id number]) [facility] ([facility]) [address] [place], [place] [address]Comprehensive metabolic 2000 panelon [id number] BCP dye [Mass/Vol]4.2 g/dL3.4 - 5.0 g/dLUnWood County HospitalALP [Catalytic activity/Vol]98 U/L33 - 110 U/[facility] HospitalALT With P-5'-P [Catalytic activity/Vol]21 U/L7 - 45 U/[facility] HospitalCommclaren northern [place] on above:Patients treated with Sulfasalazine may generate falsely decreased results for ALT.Anion gap [Moles/Vol]13 mmol/L10 - 20 mmol/L [facility] HospitalAST With P-5'-P [Catalytic activity/Vol]19 U/L9 - 39 U/[facility] HospitalBilirubin [Mass/Vol]0.4 mg/dL0.0 - 1.2 mg/dLUnWood County HospitalCalcium [Mass/Vol]9 mg/dL8.6 - 10.6 mg/dL [facility] HospitalChloride [Moles/Vol]105 mmol/L98 - 107 mmol/L [facility] HospitalCO2 [Moles/Vol]27 mmol/L21 - 32 mmol/L [facility] HospitalCreatinine [Mass/Vol]0.74 mg/dL0.50 - 1.05 mg/dLUnWood County HospitaleGFR- PINFUniShelby Memorial HospitalCommclaren northern [place] on above:Calculations of estimated GFR are performed using the 2020 CKD-EPI Study Refit equation without therace variable for the IDMS- Traceable creatinine methods. https://jasn.asnjournals.org/content///ASN.9251388633 Glucose [Mass/Vol]137 mg/aEUgqp46 - 99 mg/dLUnWood County Hospital Interpretation and review of laboratory resultsAbnormalUBluffton HospitalPotassium [Moles/Vol]4.2 mmol/L3.5 - 5.3 mmol/[facility] HospitalProtein [Mass/Vol]6.6 g/dL6.4 - 8.2 g/dLJoint Township District Memorial HospitalSodium [Moles/Vol]141 mmol/L136 - 145 mmol/[facility] HospitalUrea nitrogen [Mass/Vol]9 mg/dL6 - 23 mg/dLJoint Township District Memorial HospitalAlbumin BCP dye [Mass/Vol]4.2 g/dLNormal3.4-5.0UnSamaritan North Health CenterComment on above:Performed By: #### 02141-0 #### JOLENE Cantu ([id number]) [facility] ([facility]) [address] [place] [address] 964[address]LNF [Catalytic activity/Vol]98 U/CGtbtvl46-461HsfdettybiSamaritan North Health CenterComment on above:Performed By: #### 40238-3 #### JOLENE Cantu ([id number]) [facility] ([facility]) [address] [place] [address] 730[address]RHZ With P-5'-P [Catalytic activity/Vol]21 U/LNormal7-45 [facility] Memorial HospitalComment on above:Result Comment: Patients treated with Sulfasalazine may generate falsely decreased results for ALT.Performed By: #### 92435-1 #### JOLENE Cantu ([id number]) [facility] ([facility]) [address] [place] [address] 95403Xiequ gap [Moles/Vol]13 mmol/RGpicgw44-11JykvyfhyqrSamaritan North Health CenterComment on above:Performed By: #### 62497-4 #### JOLENE Cantu ([id number]) [facility] ([facility]) [address] [place] [address] 09[address]HUB With P-5'-P [Catalytic activity/Vol]19 U/LNormal9-39 [facility] Memorial HospitalComment on above:Performed By: #### 39123-4 #### JOLENE Cantu (58333) [facility] ([facility]) [address] [place] [address] 31923Wnowpbiey [Mass/Vol]0.4 mg/dLNormal0.0-1.2UnSamaritan North Health CenterComment on above:Performed By: #### 62757-4 #### JOLENE Cantu ([id number]) [facility] ([facility]) [address] [place] [address] 17209Ckvyyda [Mass/Vol]9.0 mg/dLNormal8.6-10.6UnSamaritan North Health CenterComment on above:Performed By: #### 41462-7 #### JOLENE NELSONTZSUSAN L ([id number]) [facility] ([facility]) [address] [place] [address] 83107Qvlldtvx [Moles/Vol]105 mmol/IUgsstz13-047UtueinuxoaSamaritan North Health CenterComment on above:Performed By: #### 76969-6 #### JOLENE RONQUILLO L ([id number]) [facility] ([facility]) [address] [place] [address] 12946AX9 [Moles/Vol]27 mmol/YUvjxsl98-53ArcoxorrnlSamaritan North Health CenterComment on above:Performed By: #### 04633-1 #### JOLENE RONQUILLO L ([id number]) [facility] ([facility]) [address] [place] [address] 32171Otcsljlzrw [Mass/Vol]0.74 mg/dLNormal0.50-1.05UnSamaritan North Health CenterComment on above:Performed By: #### 31404-5 #### JOLENE NELSONTZSUSAN L (58271) [facility] ([facility]) [address] [place] [address] 94398BZR/1.73 sq M.predicted MDRD (S/P/Bld) [Vol rate/Area] mL/min/{1.73_m2}Normal>60UnSamaritan North Health CenterComment on above:Result Comment: Calculations of estimated GFR are performed using the 2020 CKD-EPI Study Refit equation without the race variable for the IDMS-Traceable creatinine methods. https://jasn.asnjournals.org/content//ASN.7238321852Dfeyybnab By: #### 56537-4 #### JOLENE Cantu ([id number]) [facility] ([facility]) [address] [place] [address] 94209Qrvydvp [Mass/Vol]137 mg/sDUybk32-75MumcukrhsdSamaritan North Health CenterComment on above:Performed By: #### 97715-1 #### JOLENE Cantu ([id number]) [facility] ([facility]) [address] [place] [address] 94957Ltrcesdiu [Moles/Vol]4.2 mmol/LNormal3.5-5.3[facility] Memorial HospitalComment on above:Performed By: #### 18240-0 #### JOLENE Cantu ([id number]) [facility] ([facility]) [address] [place] [address] 88064Teepwet [Mass/Vol]6.6 g/dLNormal6.4-8.2[facility] HospitalComment on above:Performed By: #### 27591-2 #### JOLENE Cantu ([id number]) [facility] ([facility]) [address] [place] [address] 57112Nzjuym [Moles/Vol]141 mmol/XTraidq992-505SlggiqsokqMemorial Health System Marietta Memorial HospitalComment on above:Performed By: #### 21999-0 #### JOLENE Cantu ([id number]) [facility] ([facility]) [address] [place] [address] 57966Tyjq nitrogen [Mass/Vol]9 mg/dLNormal6-23[facility] HospitalComment on above:Performed By: #### 22151-3 #### JOLENE Cantu (77446) [facility] ([facility]) [address] [place] [address] 78606CMD Westergren method (Bld) [Velocity]on 03-20-1663OKK (Bld) [Velocity]30 mm/hHigh0-20[facility] Memorial HospitalComment on above:Performed By: #### 4537-7 ####JOLENE Cantu ([id number])[facility] ([facility])[address] [place], [place] [address]YNE ( test) Ql (U)Ordered By: Fifi Stuart on 15-44-6005Llmcduxxtvsahj and review of laboratory results NormalJoint Township District Memorial HospitalPreg Test, UrNegativeLakeHealth Beachwood Medical CenterMR BRAIN WO IV CONTRASTon [id number] BRAIN WO IV CONTRASTInterpreted By: Oscar Sabillon and Meyers Emily STUDY: MR BRAIN WO IV CONTRAST; 06/11/2024 11:01 pm INDICATION: Signs/Symptoms:CVA R/O. COMPARISON: CT head without contrast 12/10/2019 ACCESSION NUMBER(S): [id number] ORDERING CLINICIAN: CASEY LEON TECHNIQUE: Axial T2, FLAIR, DWI, gradient echo T2 and sagittal and coronal T1 weighted images of brain were acquired. FINDINGS: CSF Spaces: The ventricles, sulci and basal cisterns are within normal limits. Parenchyma: There is no diffusion restriction abnormality to suggest acute infarct. There is a FLAIR hyperintensity in the left ceballos radiata, axial image 11, which may be physiologic or may represent sequela of migraines or other chronic etiologies. No intracranial hemorrhage. There is no mass effect or midline shift. Paranasal Sinuses and Mastoids: Visualized paranasal sinuses and mastoid air cells are unremarkable. IMPRESSION: 1. No evidence of acute infarct, intracranial mass effect or midline shift. I personally reviewed the images/study, and I agree with the findings as stated above by resident physician Dr. Millicent Cano MD. This study was interpreted at [place], [place]. MACRO: None Signed by: Oscar Sabillon 06/12/2024 2:26 AM Dictation workstation: [id number] Valley Medical CenterMR LUMBAR SPINE W AND WO IV CONTRASTon [id number] LUMBAR SPINE W AND WO IV CONTRASTInterpreted By: Oscar Sabillon and Meyers Emily STUDY: MR LUMBAR SPINE W AND WO IV CONTRAST; 06/11/2024 11:01 pm INDICATION: Signs/Symptoms:Low back pain with numbness to the left leg. COMPARISON: MRI lumbar spine 05/16/2024 ACCESSION NUMBER(S): [id number] ORDERING CLINICIAN: MAMI HERNANDEZ TECHNIQUE: Sagittal T1, T2, STIR, axial T1 and T2 weighted images of the lumbar spine were acquired. Additional image acquisition was obtained following intravenous administration of 20 mL Dotarem gadolinium based contrast. FINDINGS: Please note, examination is partially limited secondary to motion artifact. There are 5 lumbarized vertebral bodies, with the last intervertebral body disc space labeled L5-S1. Alignment: The vertebral alignment is maintained. Vertebrae/Intervertebral Discs: The vertebral bodies demonstrate expected height. Postsurgical changes are again noted from left L4 hemilaminectomy. The marrow signal is within normal limits. Mild multilevel disc desiccation and loss of intervertebral body disc height at L4-L5 with associated degenerative endplate changes. Conus: The lower thoracic cord appears unremarkable. The conus terminates at L2. T12-L1: There is no significant central canal or neural foraminal stenosis. Stable appearance of the left neural foraminal perineural cyst. L1-2: No significant disc bulge or herniation. No central canal foraminal stenosis. L2-3: No significant disc bulge or herniation. No central canal foraminal stenosis. L3-4: No significant disc bulge or herniation. No central canal foraminal stenosis. L4-5: Similar appearance of central disc osteophyte complex and bilateral hypertrophic facet arthropathy contributing to moderate bilateral foraminal stenosis. Postsurgical change of left laminectomy with similar extent of surrounding enhancement and ventral epidural scarring, greater on the left. No significant central canal stenosis. L5-S1: Small disc bulge and facet hypertrophy. Mild right foraminal stenosis. No significant left foraminal stenosis or central canal stenosis. Interval decrease of a peripherally enhancing T2 hyperintense fluid collection within the subcutaneous tissues at L3-L4 now measuring up to 4.4 x 2.2 x 1.3 cm (series 13, image 18), previously measuring up to 5.6 x 2.4 x 2.5 cm on prior exam when measured in a similar fashion. Surrounding subcutaneous edema. Unchanged postsurgical edema in the medial left posterior paravertebral muscles posterior to the laminectomy bed. IMPRESSION: 1. Continued interval decrease in a rim enhancing fluid collection within the subcutaneous fat overlying the posterior elements of L4. This may represent postsurgical seroma, however as before sterility of this collection can not be determined on imaging. No new fluid collections are visualized. 2. Stable postsurgical change of left-sided laminectomy at L4-L5 with ventral epidural scarring greater on the left. Moderate bilateral foraminal stenosis at L4-L5 similar to prior. I personally reviewed the images/study, and I agree with the findings as stated above by resident physician Dr. Millicent Cano MD. This study was interpreted at [place], [place]. MACRO: None Signed by: Oscar Sabillon 06/12/2024 2:45 AM Dictation workstation: [id number] HospitalMagnesiumon [id number] [Mass/Vol]1.93 mg/dL1.60 - 2.40 mg/dL [facility] Memorial HospitalMagnesium [Mass/Vol]1.93 mg/dLNormal1.60-2.40 [facility] HospitalComment on above:Performed By: #### 53691-4 #### JOLENE Cantu ([id number]) [facility] ([facility]) [address] [place] [address] 32216Bacibhoaj [Mass/Vol]on [id number] and review of laboratory resultsNoProtestant Deaconess HospitalNo Panel Informationon [id number] and review of laboratory resultsAbnoMercy Health St. Anne HospitalRadiology Study observation (narrative)[facility] Work Phone: UnWood County HospitalPT and aPTT panel Coag (PPP)on 23-69-1085lVGA Coag (PPP) [Time]33 [facility] Medical CenterINR Coag (PPP) [Relative time]1.1 {INR}0.9 - 1.1[facility] HospitalInterpretation and review of laboratory resultsNoProtestant Deaconess HospitalPT Coag (PPP) [Time]11.7 [facility] Medical CenterThe APTT is no longer used for monitoring Unfractionated Heparin Therapy. For monitoring Heparin Therapy, use the Heparin Assay.[facility] Medical CenteraPTT Coag (PPP) [Time]33 yCyhuqt03-35VohmygqoilSamaritan North Health CenterComment on above:Order Comment: The APTT is no longer used for monitoring Unfractionated Heparin Therapy. For monitoring Heparin Therapy, use the Heparin Assay.Performed By: #### 68890-2 #### JOLENE Cantu ([id number]) [facility] ([facility]) [address] [place] [address] 73112DLM Coag (PPP) [Relative time]1.2Leksvh4.9-1.1[facility] Memorial HospitalComment on above:Order Comment: The APTT is no longer used for monitoring Unfractionated Heparin Therapy. For monitoring Heparin Therapy, use the Heparin Assay.Performed By: #### 60696-4 #### JOLENE Cantu ([id number]) [facility] ([facility]) [address] [place] [address] 50[address]HN Coag (PPP) [Time]11.7 sNormal9.8-12.4UnSamaritan North Health CenterComment on above:Order Comment: The APTT is no longer used for monitoring Unfractionated Heparin Therapy. For monitoring Heparin Therapy, use the Heparin Assay.Performed By: #### 30240-1 #### JOLENE Cantu ([id number]) [facility] ([facility]) [address] [place] [address] 60507Awfwdolnlx complete W Reflex Culture panel (U)on 06-11-2024 Appearance (U)ClearClearUnWood County HospitalBilirubin (U) [Mass/Vol]NegativeNEGATIVE mg/dLUnWood County HospitalColor (U) Qvlmx-ZaotskChonl-Qnghne, Yellow, Dark-YellowUnWood County Hospital Glucose Auto test strip (U) [Mass/Vol]NormalNormal mg/dLUnWood County HospitalKetones (U) [Mass/Vol]NegativeNEGATIVE mg/dLUnWood County HospitalLeukocyte esterase Auto test strip Ql (U)25 Robert/uLAbnormalNEGATIVE [facility] HospitalNitrite Auto test strip Ql (U)NegativeNEGATIVE [facility] HospitalpH (U)7 [pH]5.0, 5.5, 6.0, 6.5, 7.0, 7.5, 8.0 [facility] HospitalProtein (U) [Mass/Vol]NegativeNEGATIVE, 10 (TRACE), 20 (TRACE) mg/dLUnWood County HospitalRBC (U) [#/Vol] NegativeNEGATIVE mg/dLUnWood County HospitalSpecific gravity (U) [Rel density]1.0181.005 - 1.035UnWood County HospitalUrobilinogen (U) [Mass/Vol]NormalNormal mg/dLUnWood County HospitalAppearance (U)Clear NormalClearUnSamaritan North Health CenterComment on above: Performed By: #### 29360-6 #### JOLENE Cantu ([id number]) [facility] ([facility]) [address] [place] [address] 57068Iejrsvkta (U) [Mass/Vol]NegativeNormalNEGSelect Medical OhioHealth Rehabilitation HospitalComment on above:Performed By: #### 22852-2 #### JOLENE Cantu ([id number]) [facility] ([facility]) [address] [place] [address] 79724Opvav (U)Edamz-DinrksBggiezQecro-Qvczxq, Yellow, Dark-Yellow [facility] HospitalComment on above:Performed By: #### 75243-9 #### JOLENE Cantu ([id number]) [facility] ([facility]) [address] [place] [address] 01461Wpplvll Auto test strip (U) [Mass/Vol]NormalNormalNormal [facility] HospitalComment on above:Performed By: #### 26710-2 #### JOLENE Cantu ([id number]) [facility] ([facility]) [address] [place] [address] 89381Tormnrz (U) [Mass/Vol]NegativeNormalNEGATIVEMemorial Health System Marietta Memorial HospitalComment on above:Performed By: #### 65984-1 #### JOLENE Cantu ([id number]) [facility] ([facility]) [address] [place] [address] 51872Yoymoaxmh esterase Auto test strip Ql (U)25 Robert/uLAbnormal NEGATIVEMemorial Health System Marietta Memorial HospitalComment on above:Performed By: #### 58021-4 #### JOLENE Cantu ([id number]) [facility] ([facility]) [id number] [place] [address] 50734Ovbcult Auto test strip Ql (U)NegativeNormalNEGATIVE [facility] HospitalComment on above:Performed By: #### 15321-4 #### JOLENE Cantu ([id number]) [facility] ([facility]) [address] [place] [address] 36272lQ (U)7.0 [pH]Normal5.0, 5.5, 6.0, 6.5, 7.0, 7.5, 8.0 [facility] HospitalComment on above:Performed By: #### 98415-9 #### JOLENE Cantu ([id number]) [facility] ([facility]) [address] [place] [address] 51077Qdajiuw (U) [Mass/Vol]NegativeNormalNEGATIVE, 10 (TRACE), 20 (TRACE)[facility] HospitalComment on above:Performed By: #### 68081-5 #### JOLENE Cantu ([id number]) [facility] ([facility]) [address] [place] [address] 58346VYT (U) [#/Vol]NegativeNormalNEGATIVEUnSamaritan North Health CenterComment on above:Performed By: #### 83136-2 #### JOLENE Cantu ([id number]) [facility] ([facility]) [address] [place] [address] 56703Ivdugfin gravity (U) [Rel density]1.981Vcrzrk8.005-1.035 [facility] HospitalComment on above:Performed By: #### 07900-2 #### JOLENE Cantu ([id number]) [facility] ([facility]) [address] [place] [address] 24646Sjywfhgsstff (U) [Mass/Vol]NormalNormalNormalUniversMercy Health St. Elizabeth Boardman HospitalComment on above:Performed By: #### 93707-8 #### JOLENE Cantu ([id number]) [facility] ([facility]) [address] [place], [place] [address]Ngktpjzing microscopic panel Auto Ql (U)on 06-11-2024 Epithelial cells.squamous Auto (Urine sed) [#/Area]1-9 (SPARSE)Reference range not established. /[facility] Hospital for RehabilitationMucus Auto (Urine sed) [#/Area]FEWReference range not established. /FUniShelby Memorial HospitalRB Auto (Urine sed) [#/Area]1-2NONE, 1-2, 3-5 /[facility] Hospital for RehabilitationW Auto (Urine sed) [#/Area]29-30Mggjiwob1-2, NONE /[facility] Hospital for RehabilitationEpithelial cells.squamous Auto (Urine sed) [#/Area]1-9 (SPARSE)NormalReference range not established.[facility] HospitalComment on above:Performed By: #### 24479-0 #### JOLENE Cantu ([id number]) [facility] ([facility]) [address] [place] [address] 95425Cetvy Auto (Urine sed) [#/Area]FEWNormalReference range not established.[facility] HospitalComment on above: Performed By: #### 17478-9 #### JOLENE Cantu ([id number]) [facility] ([facility]) [address] [place] [address] 71593CQJ Auto (Urine sed) [#/Area]1-2NormalNONE, 1-2, 3-5 [facility] HospitalComment on above:Performed By: #### 17629-5 #### JOLENE Cantu ([id number]) [facility] ([facility]) [address] [place] [address] 60775QDY Auto (Urine sed) [#/Area]02-85Owbkqyqf8-8, NONEMemorial Health System Marietta Memorial HospitalComment on above:Performed By: #### 75790-0 #### JOLENE Cantu ([id number]) [facility] ([facility]) [address] [place] [address] 24103IK Clinical Summaryon [id number] Clinical SummaryED Clinical Summary [address] [address] ED Clinical Summary Person Information Name: JERAD TRACY/[place] Age: 49 Years : 1975 Sex: Female Language: Malagasy PCP: MARLEE FITZPATRICK MD Marital Status: Visit Id: Visit Reason: Back pain; LOWER BACK PAIN Speciality: Acuity: 4 Enc Type: Emergency Med Service: Emergency Arrival: 06/10/2024 11:07:40 Discharge: 06/10/2024 11:38:33 LOS: 000 00:31 Checkin: 06/10/2024 11:07:40 Checkout: 06/10/2024 11:38:33 Dispo Type: Home (Routine DC) EVENTS: Event Name Event Status Request Date/Time Start Date/Time Complete Date/Time Arrive Complete 06/10/2024 11:07:40 06/10/2024 11:07:40 06/10/2024 11:07:40 Document Home Meds Request 06/10/2024 11:07:40 Triage Complete 06/10/2024 11:07:40 06/10/2024 11:11:46 06/10/2024 11:11:46 Bed Assign Complete 06/10/2024 11:09:22 06/10/2024 11:09:22 06/10/2024 11:09:22 Dr Exam Complete 06/10/2024 11:09:22 06/10/2024 11:11:51 06/10/2024 11:11:51 RN Exam Complete 06/10/2024 11:09:22 06/10/2024 11:20:29 06/10/2024 11:20:29 Registration Complete 06/10/2024 11:11:10 06/10/2024 11:11:10 06/10/2024 11:11:10 Reg Complete Request 06/10/2024 11:11:10 Reg Bed Request Complete 06/10/2024 11:11:10 06/10/2024 11:11:10 06/10/2024 11:11:10 Registration Request 06/10/2024 11:11:51 Meds Admin Complete 06/10/2024 11:26:28 06/10/2024 11:32:45 Discharge Complete 06/10/2024 11:33:28 06/10/2024 11:38:38 06/10/2024 11:38:38 Transfer Complete 06/10/2024 11:38:38 06/10/2024 11:38:38 06/10/2024 11:38:38 [facility] [place] [id number] PHYS DOC NOTES: MEDICAL INFORMATION: Prescriptions Given: Medications to Continue with No Changes Other Medications acetaminophen-oxycodone (Percocet 5 mg-325 mg oral tablet) 1 Tablets By Mouth every 6 hours as needed Pain 8-10. Refills: 0. azithromycin (azithromycin 250 mg Tab) 250 Milligram By Mouth As Directed. Take two tabs by mouth on day one, then one tab daily. Refills: 0. cyclobenzaprine (cyclobenzaprine 10 mg Tab) 1 Tablets By Mouth 3 times a day as needed for spasm. Refills: 0. cyclobenzaprine (cyclobenzaprine 10 mg Tab) 1 Tablets By Mouth 3 times a day as needed for spasm. Refills: 0. cyclobenzaprine (cyclobenzaprine 10 mg Tab) [...] hours off daily. Refills: 0. lidocaine topical (lidocaine Top 5% [...] and 12 hours off daily. Refills: 0. naproxen (Naprosyn 500 mg Tab) 1 Tablets By Mouth 2 times a day as needed for pain. Refills: 0. ondansetron (Zofran 4 mg Tab) [...] daily x3 days.. Refills: 0. predniSONE (predniSONE 10 mg Tab) 1 Tablets By Mouth As Directed. Take 3 tabs by mouth daily x3 days, then 2 tabs daily x3 days, then 1 tab daily x3 days.. Refills: 0. predniSONE (predniSONE 20 mg Tab) 3 By Mouth every day. Refills: 0. PATIENT EDUCATION INFORMATION: Instructions: Chronic Back Pain Follow up: With: Address: When: MARLEE FITZPATRICK [address] [place], [place] [id number] [facility] (1[employer] In 3 days 06/13/2024 Comments: Make sure to follow-up with your primary doctor as discussed and your pain management. Return to the emergency room if your pain gets worse, bowel or bladder incontinence, numbness/tingling in the saddle/groin area or any new symptoms. DIAGNOSIS: 1:Chronic lower back pain; Other chronic painNormalFisher Sal Medical CenterED Note-Physicianon [id number] Note-PhysicianED Note-Physician Basic Information Time Seen: Balbina Bryant M.D. 06/10/2024 11:11 Chief Complaint pt complaints of flare up of chronic back pain. no new injury. History of Present Illness The patient is a 49-year-old female past medical history of chronic lower back pain who presented to the emergency room due to lower back pain. The patient states she has had this pain for long time now. The pain got worse last night. The patient states she took a Toradol earlier this morning and that did not help. The patient denies any bowel or bladder incontinence. She denies any saddle paresthesia. The patient denies any weakness on her leg. She denies any abdominal pain. The patient said this is the same as her chronic back pain other and gotten worse. The patient denies any other associated symptoms. Review of Systems Additional ROS info: Except as noted in the above Review of Systems and in the History of Present Illness all other systems have been reviewed and are negative or noncontributory. Physical Exam Vitals & Measurements HR: 104(Peripheral) RR: 20 BP: 184/94 SpO2: 98% HT: 160 cm WT: 120 kg BMI: 46.88 General: alert, no acute distress Skin: warm, dry Head: no trauma, normocephalic Neck: Trachea midline, no tenderness, supple Eye: normal conjunctiva, sclera clear ENMT: Oral mucosa moist, no pharyngeal erythema or exudate Cardiovascular: regular rate and rhythm Respiratory: Lungs CTA, respirations non labored, breath sounds equal Gastrointestinal: soft, non distended, no tenderness, no guarding Back: Mild generalized tenderness in the lumbosacral region. No erythema, no swelling at the surgical site., Normal ROM, Normal alignment, straight leg raising negative. Patellar reflexes equal bilateral. Extremities: no deformity, no trauma Neurological: Alert and oriented, motor strength equal & normal bilaterally, sensation equal & normal bilaterally, speech normal, no focal neuro deficits Psychiatric: cooperative, affect appropriate for age Medical Decision Making MEDICAL DECISION MAKING Number and Complexity of Problems Differential Diagnosis: [] [facility] Data External documents reviewed: [] My EKG interpretation: [] My CT interpretation: [] My X-ray interpretation: [] My Ultrasound interpretation: [] Decision rules/scores evaluated: [] Discussed with: [] Treatment and Disposition ED Course: The patient presented with chronic lower back pain. She has no signs or symptoms of Cauda equina syndrome. The patient was given Toradol, Norflex and Percocet. She will follow-up with her primary care and pain management. The patient was instructed to return to the emergency room if her pain gets worse, bowel or bladder incontinence, numbness/tingling in the saddle/groin area or any new symptoms. Shared decision making: [] Code status: [] Assessment/Plan 1. Chronic lower back pain (M54.50: Low back pain, unspecified) Other chronic pain (G89.29: Other chronic pain) Orders: acetaminophen-oxycodone, 1 tab(s), Tab, Oral, Once, Stop date 06/10/24 11:24:00 EDT, STAT, Start date 06/10/24 11:24:00 EDT ketorolac, 60 mg = 2 mL, Injection, IntraMuscular, Once, Stop date 06/10/24 11:24:00 EDT, STAT, Start date 06/10/24 11:24:00 EDT, 06/10/24 11:24:00 EDT orphenadrine, 60 mg = 2 mL, Injection, IntraMuscular, Once, Stop date 06/10/24 11:24:00 EDT, STAT, Start date 06/10/24 11:24:00 EDT, 06/10/24 11:24:00 EDT Medications Administered Given ketorolac 60 mg/2 mL Injection, 60 mg, IntraMuscular orphenadrine 30 mg/mL Inj, 60 mg, IntraMuscular Percocet 5 mg-325 mg oral tablet, 1 tab(s), Oral Disposition Plan Patient Discharge Condition Stable Discharge Disposition discharge home Discharge Prescription List Prescriptions No active prescription medications Follow-up With When Contact Information MARLEE FITZPATRICK In 3 days 06/13/2024 EDT [address] [place] [address]- Business (1) Additional Instructions: Make sure to follow-up with your primary doctor as discussed and your painmanagement. Return to the emergency room if your pain gets worse, bowel or bladder incontinence, numbness/tingling in the saddle/groin area or any new symptoms. Patient Education Chronic Back Pain Problem [...] Procedure/Surgical History Hysterectomy (2010), History of cholecystectomy, Hys (more content not included)...[facility] HospitalComment on above:Result Comment: Electronically Signed By: Annette Watkins, Balbina Sparks\.br\Date and Time Signed: 06/10/2510:35 EDTED Patient Summaryon [id number] Patient SummaryED Patient Summary [place] [id number] Patient Discharge Instructions Person Information Name: JERAD TRACY Age: 49 Years Arrival Date: 06/10/2024 11:07:40 Discharge Diagnosis: 1:Chronic lower back pain; Other chronic pain Primary Care Physician: AMARI SOTO, MARLEE Rausch Provider Information Primary Provider: Balbina Bryant M.D. Advanced Dietetic Intern:None The exam and treatment you received in the Emergency Department were for an urgent problem and are not intended as complete care. It is important that you follow up with a doctor, nurse practitioner,or physician???s construction assistant for ongoing care. If your symptoms become worse or you do not improve asexpected and you are unable to reach your usual health care provider, you should return to the Emergency Department. We are available 24 hours a day. JERAD TRACY has been given the following list of patient education materials, prescriptions andfollow-up instructions: Follow-up Instructions: With: Address: When: KARLOSOPHIE FITZPATRICK [address] [place] [address] [phone] Business (1) In 3 days 06/13/2024 Comments: Make sure to follow-up with your primary doctor as discussed and your pain management. Return to the emergency room if your pain gets worse, bowel or bladder incontinence, numbness/tingling in the saddle/groin area or any new symptoms. In the event that this physician does not participate in your insurance network, please consult with your insurance company to find a nearby participating provider. Patient Education Materials: Chronic Back Pain A MESSAGE TO ALL PATIENTS REGARDING OPIOIDS PRESCRIPTION OPIOIDS: WHAT YOU NEED TO KNOW Prescription opioids can be used to help relieve pioxqnnh-ah-cuuczo pain and are often prescribed following a [...] flush them down the toilet, following guidance (more content not included)...JamesOhio[facility] Medical CenterED PROVIDER NOTESon [id number] Ed Provider NoteED Provider Note: Last filed note HNO ID: [id number] Author: Jennifer Pierce MD Service: Emergency Medicine Author Type: Physician Filed: 06/06/24 1222 Note Text: I have seen Jerad Tracy [...] evaluation, and medical decision-making. Electronically signed by: Jennifer Pierce MD, 06/06/2024 12:22 PMNUC Health Ed Provider NoteED Provider Note: Last filed note HNO ID: [id number] Author: Thom Dias PA-C Service: ? Author Type: Physician Herbicide Sprayer Filed: 06/09/24 0048 Note Text: [address] [address] EMERGENCY DEPARTMENT ENCOUNTER CHIEF COMPLAINT Chief Complaint Patient presents with Back Pain HPI Jerad Tracy is a 49 year old female who presents with acute on chronic low back pain. Patient is struggled with low back pain and has had several surgeries 1 of which resulted in infection. She has had several MRIs. Pain is located in the lumbar spine rated 10/10 in severity. She states there is nothing new about her pain today and she has no new paresthesias, saddle anesthesia, bowel or bladder incontinence. She believes that her chronic back condition flared after she drove about 45 minutes today. She typically takes Flexeril and alternates Tylenol and Motrin which is not working for her today. She has no other complaints whatsoever including fevers or chills. Previous documentation reviewed includes several ER visits for the same complaint as well as MRI of the thoracic and lumbar spine completed 05/16/2024: THORACIC SPINE: There are 12 rib-bearing thoracic vertebrae. Thoracic vertebral alignment is maintained without evidence of new spondylolisthesis. Thoracic vertebral body heights are preserved without evidence of new compression fractures. No new STIR hyperintense edema or T1 hypointense, marrow replacing enhancing process is identified. Posterior elements do not demonstrate any acute abnormality. Multilevel intervertebral disc desiccation is present, without significant disc height loss. Although the exam is somewhat degraded by motion and large field of view, no discrete intramedullary cord signal abnormality is present. No pathologic leptomeningeal or epidural enhancement is identified. Stable degenerative changes of the thoracic spine compared to exam dated 12/18/2023 including mild facet arthrosis spanning T3-4 through T9-10 and T11-12 through T12-L1 without significant spinal canal or neural foraminal stenosis. Khua-woivtas-vkad-right zkwv-xc-mjblwmsx facet arthrosis at T10-11 causes mild spinal canal stenosis with the effacement of the dorsal subarachnoid space. Note is made of a perineural cyst in the left T12-L1 neural foramen measuring approximately 0.7 x 0.6 cm. Paraspinal soft tissues in the lumbar spine do not demonstrate any acute abnormality. LUMBAR SPINE: There are 5 lumbar type vertebral bodies. The last well-formed disc space is labeled L5-S1. Lumbar vertebral alignment is maintained without evidence of new spondylolisthesis. Vertebrae/Intervertebral Discs: The vertebral bodies demonstrate expected height. Postsurgical changes are noted from left L4 hemilaminectomy. The marrow signal is within normal limits. No abnormal enhancing lesions. Mild disc desiccation and loss of intervertebral disc height at L4-5 with degenerative endplate changes. Conus: The conus terminates at L2. T12-L1: Perineural cyst in the left neural foramen as described above. No significant spinal canal or neural foraminal stenosis. L1-2: Facet arthrosis without significant spinal canal or neural foraminal stenosis. L2-3: Facet arthrosis without significant spinal canal or neural foraminal stenosis. L3-4: Facet arthrosis without significant spinal canal or neural foraminal stenosis. L4-5: Asymmetric left disc bulge and facet arthrosis narrowing the awsu-egsxyxv-oemz-right lateral recesses and causing zbze-da-xunlnzmt bilateral neural foraminal stenosis. No significant spinal canal stenosis. L5-S1: Disc bulge, facet arthrosis, and ligamentum flavum hypertrophy causing moderate right and mild left neural foraminal stenosis. No significant spinal canal stenosis. Re-demonstration of a peripherally enhancing fluid collection of the level of L3-4 on the left measuring 4.4 x 2.4 x 2.5 (previously 5.4 x 3.7 x 3.4). Findings may reflect a postoperative seroma or abscess (series 19, image 34 and 17, image 17). There is surrounding soft tissue edema and susceptibility artifact. REVIEW OF SYSTEMS Musculoskeletal: +back pain : No dysuria or hematuria GI: No abdominal pain or vomiting General: No fevers or chills Neurologic: No bowel or bladder incontinence, No saddle anesthesia, No leg weakness Review of systems otherwise negative. PAST MEDICAL Past Medical History: Diagnosis Date Chronic back pain Liver fibrosis Past Surgical History: Procedure Laterality Date Myringotomy Other Surgical History L4 removal and shaved down L5 REMOVAL GALLBLADDER REMOVAL OF TONSILS,12+ Y/O VAG HYST 250 GM/< CURRENT MEDICATIONS No current facility-administered medications for this encounter. Current Outpatient Medications: naproxen (NAPROSYN) 500 mg tablet, Take 1 Tab by mouth two times a day as needed (pain), Di (more content not included)...[facility] CenterED TRIAGEon [id number] Ed Triage NoteED Triage Note: Last filed note HNO ID: [id number] Author: Maddie Dan RN Service: ? Author Type: Registered Nurse Filed: 06/06/24 5232 Note Text: Pt arrives triage ambulatory with lower back pain. Pt has chronic back with bulging disc hx. Pt denies injury. Pt is alert and oriented, resp even and unlabored.[facility] HospitalED Clinical Summaryon [id number] Clinical SummaryED Clinical Summary [place] [id number] ED Clinical Summary Person Information Name: STEVEN TRACYJORGE [place] Age: 49 Years : 1975 Sex: Female Language: Malagasy PCP: MARLEE FITZPATRICK MD Marital Status: Visit Id: Visit Reason: Nausea; Headache; MIGRAINE Speciality: Acuity: 3 Enc Type: Emergency Med Service: Emergency Arrival: 05/31/2024 19:19:21 Discharge: 05/31/2024 21:22:13 LOS: 000 02:03 Checkin: 05/31/2024 19:19:21 Checkout: 05/31/2024 21:22:13 Dispo Type: Home (Routine DC) EVENTS: Event Name Event Status Request Date/Time Start Date/Time Complete Date/Time Arrive Complete 05/31/2024 19:19:21 05/31/2024 19:19:21 05/31/2024 19:19:21 Document Home Meds Request 05/31/2024 19:19:21 Triage Complete 05/31/2024 19:19:21 05/31/2024 20:00:07 05/31/2024 20:00:07 Registration Complete 05/31/2024 19:22:12 05/31/2024 19:22:12 05/31/2024 19:22:12 Reg Complete Request 05/31/2024 19:22:12 Reg Bed Request Complete 05/31/2024 19:22:12 05/31/2024 19:22:12 05/31/2024 19:22:12 Bed Assign Complete 05/31/2024 19:54:17 05/31/2024 19:54:17 05/31/2024 19:54:17 Dr Exam Complete 05/31/2024 19:54:17 05/31/2024 19:56:11 05/31/2024 19:56:11 RN Exam Complete 05/31/2024 19:54:17 05/31/2024 19:59:46 05/31/2024 19:59:46 Registration Complete 05/31/2024 19:56:11 05/31/2024 20:03:26 05/31/2024 20:03:26 Meds Admin Complete 05/31/2024 20:46:43 05/31/2024 21:05:17 Discharge Complete 05/31/2024 21:07:49 05/31/2024 21:22:19 05/31/2024 21:22:19 Transfer Complete 05/31/2024 21:22:19 05/31/2024 21:22:19 05/31/2024 21:22:19 [address] [facility] [phone] PHYS DOC NOTES: MEDICAL INFORMATION: Prescriptions Given: New Medications [facility]/pharm[facility] #[id number], [address] [place], [place] [id number], [phone] oxycodone (oxyCODONE 5 mg Cap) 1 Capsules By Mouth every 6 hours as needed for pain for 2 Days. Refills: 0. Medications to Continue with No Changes Other Medications acetaminophen-oxycodone (Percocet 5 mg-325 mg oral tablet) 1 Tablets By Mouth every 6 hours as needed Pain 8-10. Refills: 0. azithromycin (azithromycin 250 mg Tab) 250 Milligram By Mouth As Directed. Take two tabs by mouth on day one, then one tab daily. Refills: 0. cyclobenzaprine (cyclobenzaprine 10 mg Tab) 1 Tablets By Mouth 3 times a day as needed for spasm. Refills: 0. cyclobenzaprine (cyclobenzaprine 10 mg Tab) 1 Tablets By Mouth 3 times a day as needed for spasm. Refills: 0. cyclobenzaprine (cyclobenzaprine 10 mg Tab) [...] hours off daily. Refills: 0. lidocaine topical (lidocaine Top 5% [...] and 12 hours off daily. Refills: 0. naproxen (Naprosyn 500 mg Tab) 1 Tablets By Mouth 2 times a day as needed for pain. Refills: 0. ondansetron (Zofran 4 mg Tab) [...] daily x3 days.. Refills: 0. predniSONE (predniSONE 10 mg Tab) 1 Tablets By Mouth As Directed. Take 3 tabs by mouth daily x3 days, then 2 tabs daily x3 days, then 1 tab daily x3 days.. Refills: 0. predniSONE (predniSONE 20 mg Tab) 3 By Mouth every day. Refills: 0. PATIENT EDUCATION INFORMATION: Instructions: Migraine Headache Follow up: With: Address: When: MARLEE FITZPATRICK [address] [place] [address] [facility] () In 3 days 06/03/2024 Comments: Call the office of your primary [...] any new or worsening symptoms. Seek immediate (more content not included)...NormalFisher Sal Medical CenterED Note-Physicianon [id number] Note-PhysicianED Note-Physician Basic Information Time Seen: Nikhil Tubbs DO 05/31/2024 19:56 Chief Complaint pt to ED with c/o migraine. states hx of them but they are not frequent. HORNER since 0700. has taking motrin and naproxen without relief. last dose around 1500. states nausea no vomiting and see black spots with bright lights. denies blurry or double vision. History of Present Illness 49-year-old female to the emergency department chief complaint of headache. She reports that started at 7 AM this morning. She reports it feels like previous migraines. She denies any neck pain, fever, sweats, chills. She denies any confusion. She has not been sick recently. No nausea or vomiting. She reports that she has had migraines very similar to this in the past. [employer] works. She took some Motrin and naproxen however this did not get her relief. She is also having pain in her back that is chronic in nature. Review of Systems A 10 point review of systems is negative except as noted above. Medical and Surgical History: Reviewed and noted Social history: Lives at home Tobacco: Denies Physical Exam Vitals & Measurements T: 36.5 ???C(Oral) HR: 104(Peripheral) RR: 20 BP: 115/75 SpO2: 98% HT: 160 cm WT: 120.2 kg BMI: 46.95 VITALS: I have reviewed the triage vital signs. GENERAL: Well developed, well appearing adult in no acute distress. NEURO: Alert and oriented. Moves all extremities. Face is symmetric and NEURO: Alert and oriented x4. Moves all extremities. Face is symmetric and expressive. Cranial nerves II through XII grossly intact as tested. Muscular strength and sensation grossly intact upper and lower extremities bilaterally. No dysarthria. No aphasia. No ataxia. Normal gait. NIHSS 0. EYES: PERRL. No scleral icterus or conjunctival [...] is soft and non-tender. Normoactive bowel sounds. EXTREMITIES: Symmetric muscle bulk. No joint swelling. No clubbing, cyanosis, or deformity. SKIN: Warm and dry. Normal turgor. No rash or lesions appreciated. PSYCH: Mood, affect, and interaction is appropriate to the setting. Medical Decision Making 49-year-old female to the emergency department chief complaint of typical migraine and chronic backpain. Vital stable, the patient is afebrile. Neurologic examination is nonfocal. Similar to previous migraines. Will treat symptomatically. Migraine cocktail is ordered. Patient felt improved. Patient reports that she is a flareup of her chronic back pain. She does not see her surgeon for a few days. She requested a short prescription of pain medication. OARRS reviewed. She currently has no narcotic scripts. Short course of oxycodone is prescribed. Return precautions were discussed. All questions were answered. The patient was discharged home. Assessment/Plan Back pain (M54.9: Dorsalgia, unspecified) Ordered: oxycodone, 5 mg = 1 cap(s), Oral, q6hr, PRN for pain, X 2 day(s), # 8 cap(s), Refills(s) 0, Pharmacy: [facility]/pharmacy #[id number], 160, cm, 05/31/24 20:00:00 EDT, Height/Length Dosing, 120.2, kg, 05/31/24 20:00:00 EDT, Weight Dosing Headache, classical migraine (G43.109: Migraine with aura, not intractable, without status migrainosus) Orders: dexamethasone, 10 mg = 2.5 mL, Injection, IntraMuscular, Once, Stop date 05/31/24 20:45:00 EDT, STAT, Start date 05/31/24 20:45:00 EDT, 05/31/24 20:45:00 EDT diphenhydrAMINE, 25 mg = 0.5 mL, Injection, IntraMuscular, Once, Stop date 05/31/24 20:44:00 EDT, STAT, Start date 05/31/24 20:44:00 EDT, 05/31/24 20:44:00 EDT ketorolac, 30 mg = 1 mL, Injection, IntraMuscular, Once, Stop date 05/31/24 20:44:00 EDT, STAT, Start date 05/31/24 20:44:00 EDT, 05/31/24 20:44:00 EDT metoclopramide, 10 mg = 2 mL, Injection, IntraMuscular, Once, Stop date 05/31/24 20:45:00 EDT, STAT, Start date 05/31/24 20:45:00 EDT, 05/31/24 20:45:00 EDT Medications Administered Given dexamethasone 4 mg/mL Inj 1 mL, 10 mg, IntraMuscular diphenhydrAMINE 50 mg/mL Inj, 25 mg, IntraMuscular ketorolac 30 mg/mL Inj 1 mL, 30 mg, IntraMuscular metoclopramide 5 mg/mL Inj, 10 mg, IntraMuscular Disposition Plan Patient Discharge Condition Stable Discharge Disposition Home Discharge Prescription List Prescriptions oxyCODONE 5 mg Cap, 5 mg= 1 cap(s), Oral, q6hr, PRN Follow-up With When Contact Information MARLEE FITZPATRICK In 3 days 06/03/2024 EDT [address] [place] [address] Business (1) Additional Instructions: Call the office of your primary (more content not included)...[facility] HospitalComment on above:Result Comment: Electronically Signed By: Nikhil Tubbs DO\.br\Date and Time Signed: 05/31/24 21:20 EDTED Patient Summaryon [id number] Patient SummaryED Patient Summary [place] [id number] Patient Discharge Instructions Person Information Name: JERAD TRACY Age: 49 Years Arrival Date: 05/31/2024 19:19:21 Discharge Diagnosis: Back pain; Headache, classical migraine Primary Care Physician: MARLEE FITZPATRICK MD Provider Information Primary Provider: Nikhil Tubbs DO Advanced Dietetic Intern:None The exam and treatment you received in the Emergency Department were for an urgent problem and are not intended as complete care. It is important that you follow up with a doctor, nurse practitioner,or physician???s construction assistant for ongoing care. If your symptoms become worse or you do not improve asexpected and you are unable to reach your usual health care provider, you should return to the Emergency Department. We are available 24 hours a day. JERAD TRACY has been given the following list of patient education materials, prescriptions andfollow-up instructions: Follow-up Instructions: With: Address: When: MARLEE FITZPATRICK [address] [place] [phone] Business (1) In 3 days 06/03/2024 Comments: Call the office of your primary [...] immediate medical attention if you develop: worsening headache, nausea, vomiting, confusion, weakness, loss of motion in your arms or legs, loss of control of your urine or stool, difficulty waking from sleep, neck pain, fever, or any new or worsening symptoms. In the event that this physician does not participate in your insurance network, please consult with your insurance company to find a nearby participating provider. Patient Education Materials: Migraine Headache A MESSAGE TO ALL PATIENTS REGARDING OPIOIDS PRESCRIPTION OPIOIDS: WHAT YOU NEED TO KNOW Prescription opioids can be used to help relieve kkkfcccy-pi-afegnw pain and are often prescribed following a [...] create a plan on how to manage (more content not included)... [facility] HospitalXR LUMBAR SPINE 2-3 VIEWSon [id number] LUMBAR SPINE 2-3 VIEWSInterpreted By: Dejan Laird, STUDY: XR LUMBAR SPINE 2-3 VIEWS; 05/26/2024 3:14 pm INDICATION: Signs/Symptoms:pain. Pain COMPARISON: 01/02/2024 ACCESSION NUMBER(S): [id number] ORDERING CLINICIAN: CRYSTAL LEWIS TECHNIQUE: Views: AP, lateral, and coned-down L5-S1. FINDINGS: RESULT: The alignment is within normal limits. The lumbar vertebrae demonstrate no evidence for wedge fracture or compression deformity. Moderate disc space narrowing at L4-5 is again seen. The remainder of the intervertebral disc spaces appear adequately maintained. Facet degenerative changes are present. IMPRESSION: No acute fracture or spondylolisthesis. Signed by: Dejan Laird 05/26/2024 3:24 PM Dictation workstation: [id number] Medical CenterXR Lumbar spine 2 or 3 Viewson [id number] acute fracture or spondylolisthesis. Signed by: Dejan Laird 05/26/2024 3:24 PM Dictation workstation: [id number] By: Dejan Laird, STUDY: XR LUMBAR SPINE 2-3 VIEWS; 05/26/2024 3:14 pm INDICATION: Signs/Symptoms:pain. Pain COMPARISON: 01/02/2024 ACCESSION NUMBER(S): [id number] ORDERING CLINICIAN: CRYSTAL LEWIS TECHNIQUE: Views: AP, lateral, and coned-down L5-S1. FINDINGS: RESULT: The alignment is within normal limits. The lumbar vertebrae demonstrate no evidence for wedge fracture or compression deformity. Moderate disc space narrowing at L4-5 is again seen. The remainder of the intervertebral disc spaces appear adequately maintained. Facet degenerative changes are present. Dejan Arevalo MD - 05/26/2024 Interpreted By: Dejan Laird, STUDY: XR LUMBAR SPINE 2-3 VIEWS; 05/26/2024 3:14 pm INDICATION: Signs/Symptoms:pain. Pain COMPARISON: 01/02/2024 ACCESSION NUMBER(S): [id number] ORDERING CLINICIAN: CRYSTAL LEWIS TECHNIQUE: Views: AP, lateral, and coned-down L5-S1. FINDINGS: RESULT: The alignment is within normal limits. The lumbar vertebrae demonstrate no evidence for wedge fracture or compression deformity. Moderate disc space narrowing at L4-5 is again seen. The remainder of the intervertebral disc spaces appear adequately maintained. Facet degenerative changes are present. IMPRESSION: No acute fracture or spondylolisthesis. Signed by: Dejan Laird 05/26/2024 3:24 PM Dictation workstation: [id number] [facility] Work Phone: Radiology Study observation (narrative)[facility] Work Phone: XR Lumbar spine 2 or 3 ViewsOrdered By: Dejan Laird on 01-81-2700GegmirxlatWood County Hospital Work Phone: CT Abdomen/Pelvis w/o Contraston [id number] Abdomen/Pelvis w/o ContrastExam Date/Time: 05/23/2024 20:01 EST Reason for Exam: ABDOMINAL PAIN, ACUTE, NONLOCALIZED;Other (please specify) Report IMPRESSION: No acute process in the unenhanced abdomen/pelvis. HISTORY: Right flank pain. Hematuria. Urinary frequency. History of hysterectomy and cholecystectomy. TECHNIQUE: Non-IV contrast imaging of the abdomen and pelvis was performed. Unenhanced imaging is limited for the evaluation of some intra-abdominal and pelvic pathology. Unless otherwise stated, incidental findings in this report do not require further routine follow-up imaging. All CT scans at this facility use dose modulation, iterative reconstruction, and/or weight based dosing when appropriate to reduce radiation dose to as low as reasonably achievable. COMPARISON: CT 12/01/2023. RESULT: Liver: Unremarkable. Biliary: Cholecystectomy. Pancreas: Unremarkable. Spleen: No splenomegaly. Adrenals: Benign bilateral adrenal adenomas, unchanged. Kidneys and urinary tract: No urinary tract calculus or hydronephrosis. No suspicious lesions in the unenhanced kidneys. Bladder unremarkable. GI Tract: No bowel dilation. Normal appendix. No evidence for diverticulitis. Lymph Nodes: No lymphadenopathy. Mesentery/peritoneum/retroperitoneum: No ascites or mass. Vasculature: Mild arterial atherosclerotic disease without aneurysm. Pelvis: No significant free fluid. Hysterectomy. Tubal ligation clips. Bladder decompressed. Bones/Soft Tissues: No acute osseous findings. Degenerative changes, especially of the lower lumbar spine. Report Lower thorax: Unremarkable. Tech Comments: Rectal Contrast Given? No Oral contrast amount in ml's: Ordering Provider: Manuel Naik FINAL REPORT Dictated: 05/24/2024 8:08 am Gene Gamboa MD Signed (Electronic Signature): 05/24/2024 8:08 am Signed by: Gene Gamboa MD Transcribed by: KIERRA Technologist: AlyssaOhiohealth Berger HospitalBMPon 14-21-2704Bkxja gap [Moles/Vol]11 mmol/LNormal6-16[facility] Comment on above:Performed By: #### [id number] #### [facility] [address] [place] [address]Wepznpn [Mass/Vol]9.1 mg/dLNormal8.9-11.1FClermont County HospitalComment on above:Performed By: #### [id number] #### [facility] [address] [place], [place] [address]Ktrgzrke [Moles/Vol]104 mmol/KBbvjry339-761PrjnykOhiohealth Berger HospitalComment on above:Performed By: #### [id number] #### [facility] [address] [place], [place] [address]ZN3 [Moles/Vol]27 mmol/UOrrpkx78-94WbostwOhiohealth Berger Hospital Comment on above:Performed By: #### [id number] #### [facility] [address] [place], [place] [address]Yqmqcgsrnw [Mass/Vol]0.8 mg/dLNormal0.5-1.3FClermont County HospitalComment on above:Performed By: #### [id number] #### [facility] [address], [place] [address]Oqdmebh [Mass/Vol]93 mg/tBJipuho02-453DcqupeOhiohealth Berger HospitalComment on above:Performed By: #### [id number] #### [facility] [address], [place] [address]Nhlnyqwry [Moles/Vol]3.8 mmol/LNormal3.5-5.3FClermont County HospitalComment on above:Performed By: #### [id number] #### [facility] [address], [place] [address]Eoujel [Moles/Vol]138 mmol/TDhztec205-019DtksxaOhiohealth Berger HospitalComment on above:Performed By: #### [id number] #### [facility] [address] [place], [place] [address]Ejfp nitrogen [Mass/Vol]13 mg/dLNormal5-21[facility] Berger HospitalComment on above:Performed By: #### [id number] #### [facility] [address] [place], [place] [address]Tkjc nitrogen/Creatinine [Mass ratio]16 No JksnlYsxxpn21-07 [facility] HospitalComment on above:Performed By: #### [id number] #### [facility] [address] [place] [address]XAG w/ Auto Diffon 74-80-3983Vksfoaftd/100 WBC (Bld)0.3 %Normal 0.0-2.0[facility] Berger HospitalComment on above:Performed By: #### [id number] #### [facility] [address] [place], [place] [address]Rmwzrwvgv/Leukocytes Auto (Bld) [Pure # fraction]0.0 E9/LNormal 0.0-0.2FClermont County HospitalComment on above:Performed By: #### [id number] #### [facility] [address] [place] [address]Umozmgmgbwo (Bld) [#/Vol]0.2 E9/LNormal0.0-0.5FClermont County HospitalComment on above:Performed By: #### [id number] #### [facility] [address] [place], [place] [address]Jmjpinjsila/100 WBC (Bld)1.3 %Normal0.0-8.0[facility] Berger HospitalComment on above:Performed By: #### [id number] #### [facility] [address] [place] [address]Uzmujqhqsbk distribution width (RBC) [Ratio]14.4 %High10.9-14.2 [facility] Berger HospitalComment on above:Performed By: #### [id number] #### [facility] [address] [place], [place] [address]Ezpbbcpupi (Bld) [Volume fraction]44.2 %Zdjuao38.0-46.0[facility] Berger HospitalComment on above:Performed By: #### [id number] #### [facility] [address], [place] [address]Gpzupadfnc (Bld) [Mass/Vol]14.9 g/cPAlajyo93.0-16.0[facility] Berger HospitalComment on above:Performed By: #### [id number] #### [facility] [address] [place] [address]Rmwzejwnfdv (Bld) [#/Vol]2.3 E9/LNormal1.0-4.0[facility] HospitalComment on above:Performed By: #### [id number] #### [facility] [address] [place] [address]Mxqtkeferko/100 WBC (Bld)18.7 %Igstou05.0-50.0[facility] Berger HospitalComment on above:Performed By: #### [id number] #### [facility] [address] [place] [address]KRZ (RBC) [Entitic mass]30.4 ltHuuyup64.0-34.0[facility] Berger HospitalComment on above:Performed By: #### [id number] #### [facility] [address] [place] [address]37[address]IRDE (RBC) [Mass/Vol]33.8 g/jPVefpad69.4-36.0[facility] Berger HospitalComment on above:Performed By: #### [id number] #### [facility] [address] [place] [address]WSK (RBC) [Entitic vol]89.9 iGMhljoe81.0-100.0[facility] Berger HospitalComment on above:Performed By: #### [id number] #### [facility] [address] [place] [address]Klapgckta (Bld) [#/Vol]0.7 E9/LNormal0.2-1.0[facility] Berger HospitalComment on above:Performed By: #### [id number] #### [facility] [address] [place] [address]Wjlijnfgwtc (Bld) [#/Vol]9.2 E9/LHigh2.0-7.5FClermont County HospitalComment on above:Performed By: #### [id number] #### [facility] [address], [place] [address]Gneswrkaxgr/100 WBC (Bld)74.3 %Znswpl26.0-75.0[facility] Berger HospitalComment on above:Performed By: #### [id number] #### [facility] [address] [place] [address]Gzqvvgov mean volume (Bld) [Entitic vol]8.2 fLNormal6.4-10.8 [facility] Berger HospitalComment on above:Performed By: #### [id number] #### [facility] [address] [place] [address]Nzyfdqqrf (Bld) [#/Vol]339.0 E9/UXooklu814.0-500.0[facility] Berger HospitalComment on above:Performed By: #### [id number] #### [facility] [address] [place] [address]EJQ (Bld) [#/Vol]4.9 E12/LNormal4.3-5.9[facility] Berger HospitalComment on above:Performed By: #### [id number] #### [facility] [address] [place] [address] 527[address]LYF corrected for nucl RBC Auto (Bld) [#/Vol]12.4 E9/LHigh 4.0-11.0[facility] Berger HospitalComment on above:Performed By: #### [id number] #### [facility] [address] [place] [address]CDMNTTATFZkocmpt By: SYSTEM SYSTEM on 06-78-1210Lhvurez [Mass/Vol]4.2 g/dLNormal3.3 - 5.0 gm/dLRemisol ChemAlbumin/Globulin [Mass ratio] 1.2 {ratio}Normal1.1 - 2.2Remisol ChemALP [Catalytic activity/Vol]97 [iU]/d Cgwpje33 - 98 Int._Unit/LRemisol ChemALT No additional P-5'-P [Catalytic activity/Vol]12 [iU]/dNormal6 - 46 Int._Unit/LRemisol ChemAnion gap [Moles/Vol] 11 mmol/LNormal6 - 16 mEq/LRemisol ChemAST [Catalytic activity/Vol]13 [iU]/d Normal5 - 43 Int._Unit/LRemisol ChemBilirubin [Mass/Vol]0.4 mg/dLNormal0.0 - 1.1 mg/dLRemisol ChemBilirubin.direct [Mass/Vol]0.1 mg/dLNormal0.0 - 0.4 mg/dL Remisol ChemBilirubin.indirect [Mass or moles/Vol]0.3 mg/dLNormal0.1 - 0.9 mg/dL Remisol ChemCalcium [Mass/Vol]9.1 mg/dLNormal8.9 - 11.1 mg/dLRemisol Chem Chloride [Moles/Vol]104 mmol/NZgskeo073 - 111 mmol/LRemisol ChemCO2 [Moles/Vol] 27 mmol/KJwovio88 - 31 mmol/LRemisol ChemCreatinine [Mass/Vol]0.8 mg/dLNormal0.5 - 1.3 mg/dLRemisol EqlgpTTD86 mL/min/1.73 e8Bmicfy>=59mL/min/1.73 z3Doboevr ChemGlobulin (S) [Mass/Vol]3.4 g/dLNormal1.4 - 4.0 gm/dLRemisol ChemGlucose [Mass/Vol]93 mg/iQVruboo95 - 199 mg/dLRemisol ChemLipase [Catalytic activity/Vol]10 U/LLow13 - 58 unit/LRemisol ChemPotassium [Moles/Vol]3.8 mmol/L Normal3.5 - 5.3 mmol/LRemisol ChemProtein [Mass/Vol]7.6 g/dLNormal6.0 - 7.8 gm/dLRemisol ChemSodium [Moles/Vol]138 mmol/IExrlpv850 - 145 mmol/LRemisol Chem Urea nitrogen [Mass/Vol]13 mg/dLNormal5 - 21 mg/dLRemisol ChemUrea nitrogen/Creatinine [Mass ratio]16 mg/myKsjxzb11 - 20Remisol ChemED Clinical Summaryon [id number] Clinical SummaryED Clinical Summary [place] [id number] ED Clinical Summary Person Information Name: JERAD TRACY [place] Age: 49 Years : 1975 Sex: Female Language: Malagasy PCP: AMARI SOTO, MARLEE Rausch Marital Status: Visit Id: Visit Reason: Hematuria; Urinary frequency; Flank pain; KIDNEY PAIN Speciality: Acuity: 3 Enc Type: Emergency Med Service: Emergency Arrival: 05/23/2024 18:39:16 Discharge: 05/23/2024 23:13:27 LOS: 000 04:34 Checkin: 05/23/2024 18:39:16 Checkout: 05/23/2024 23:13:27 Dispo Type: Home (Routine DC) EVENTS: Event Name Event Status Request Date/Time Start Date/Time Complete Date/Time Arrive Complete 05/23/2024 18:39:16 05/23/2024 18:39:16 05/23/2024 18:39:16 Document Home Meds Request 05/23/2024 18:39:16 Triage Complete 05/23/2024 18:39:16 05/23/2024 18:59:25 05/23/2024 18:59:25 Registration Complete 05/23/2024 18:43:45 05/23/2024 18:43:45 05/23/2024 18:43:45 Reg Complete Request 05/23/2024 18:43:45 Reg Bed Request Complete 05/23/2024 18:43:45 05/23/2024 18:43:45 05/23/2024 18:43:45 Bed Assign Complete 05/23/2024 18:53:53 05/23/2024 18:53:53 05/23/2024 18:53:53 Dr Exam Complete 05/23/2024 18:53:53 05/23/2024 18:54:22 05/23/2024 18:54:22 RN Exam Complete 05/23/2024 18:53:53 05/23/2024 21:06:40 05/23/2024 21:06:40 Registration Complete 05/23/2024 18:54:22 05/23/2024 19:32:13 05/23/2024 19:32:13 Dr Exam Complete 05/23/2024 18:57:58 05/23/2024 18:57:58 05/23/2024 18:57:58 CT Complete 05/23/2024 19:12:54 05/23/2024 19:44:05 05/23/2024 20:01:22 Pending Labs Complete 05/23/2024 19:12:54 05/23/2024 20:56:15 Lab Complete 05/23/2024 19:12:54 05/23/2024 20:35:54 Meds Admin Complete 05/23/2024 19:12:55 05/23/2024 19:45:26 Pending Labs Cancel 05/23/2024 19:13:09 05/23/2024 19:17:33 Lab Cancel 05/23/2024 19:13:09 05/23/2024 19:17:33 Urine Collect Cancel 05/23/2024 19:13:09 05/23/2024 19:17:33 Meds Admin Complete 05/23/2024 19:13:28 05/23/2024 19:45:26 Pending Labs Complete 05/23/2024 20:06:58 05/23/2024 20:06:58 05/23/2024 20:35:54 Lab Complete 05/23/2024 20:06:58 05/23/2024 20:06:58 05/23/2024 20:35:54 Pending Labs Complete 05/23/2024 21:40:55 05/23/2024 21:40:55 05/23/2024 21:40:55 Discharge Complete 05/23/2024 23:13:36 05/23/2024 23:13:36 05/23/2024 23:13:36 Transfer Complete 05/23/2024 23:13:36 05/23/2024 23:13:36 05/23/2024 23:13:36 ADDRESS: [address] [place] [phone] PHYS DOC NOTES: MEDICAL INFORMATION: Prescriptions Given: Medications to Continue with No Changes Other Medications acetaminophen-oxycodone (Percocet 5 mg-325 mg oral tablet) 1 Tablets By Mouth every 6 hours as needed Pain 8-10. Refills: 0. azithromycin (azithromycin 250 mg Tab) 250 Milligram By Mouth As Directed. Take two tabs by mouth on day one, then one tab daily. Refills: 0. cyclobenzaprine (cyclobenzaprine 10 mg Tab) 1 Tablets By Mouth 3 times a day as needed for spasm. Refills: 0. cyclobenzaprine (cyclobenzaprine 10 mg Tab) 1 Tablets By Mouth 3 times a day as needed for spasm. Refills: 0. cyclobenzaprine (cyclobenzaprine 10 mg Tab) [...] hours off daily. Refills: 0. lidocaine topical (lidocaine Top 5% [...] and 12 hours off daily. Refills: 0. naproxen (Naprosyn 500 mg Tab) 1 Tablets By Mouth 2 times a day as needed for pain. Refills: 0. ondansetron (Zofran 4 mg Tab) [...] daily x3 days.. Refills: 0. predniSONE (predniSONE 10 mg Tab) 1 Tablets By Mouth As Directed. Take 3 tabs by mouth daily x3 days, then 2 tabs daily x3 days, then 1 tab daily x3 days.. Refills: 0. predniSONE (predniSONE 20 mg Tab) 3 By Mouth every day. Refills: 0. PATIENT EDUCATION INFORMATION: Instructions: Follow up: DIAGNOSIS: 1:Right flank pain; 2:Urinary frequency; Eloped [facility] CenterED Note-Physicianon [id number] Note-PhysicianED Note-Physician Basic Information Time Seen: Mnauel Naik PA-C 05/23/2024 18:54 Chief Complaint patient presents with right sided flank pain, hematuria and urinary frequency x 2 days History of Present Illness Patient is a 49-year-old female that presents today for evaluation of her right- sided flank pain with associated urinary frequency and gross hematuria. Patient states symptoms started 2 days ago. Shedenies any fevers, body aches, chills. She has had some nausea but denies any episodes of vomiting.Denies abdominal pain. States most the pain is on the flank. Denies history of kidney stones or kidney infections. Denies dysuria. Review of Systems No other aggravating or relieving factors no other associated symptoms no other prior treatments orcomplaints. Family: Reviewed and noncontributory Social: lives at home Review of systems negative unless otherwise specified in the HPI. Physical Exam Vitals & Measurements T: 36.8 ???C(Oral) HR: 111(Peripheral) RR: 18 BP: 149/107 SpO2: 99% HT: 160 cm WT: 122.1 kg BMI: 47.7 General: The patient appears well and in [...] rebound or rigidity. No guarding. No tenderness. Right CVA tenderness. Neurological: A&O moves all extremities equal strength and symmetry Psychiatric: Cooperative and appropriate Medical Decision Making Patient is a 49-year-old female presents today for evaluation of her right-sided flank pain with associated urinary frequency and gross hematuria. Symptoms started 2 days ago. Has had associated nausea but no vomiting. Denies any other systemic signs or symptoms. On exam the patient is afebrile nontoxic-appearing. Abdomen is soft and nontender with no evidence of guarding or distention. She does have right CVA tenderness. Given signs and symptoms he did obtain labs as well as CT of the abdomen and pelvis. Labs demonstrate mild leukocytosis at 12.4. Remaining labs are WNL. UA negative for UTI and does not demonstrate evidence of blood. CT of the abdomen and pelvis is ordered and pending upon signout to Dr. Sánchez. Patient was given a dose of Toradol and Zofran for symptomatic management. Patient signed out to me pending CT imaging results. CT imaging results were negative as I was going to discuss the findings with patient as she eloped from the department. Assessment/Plan 1. Right flank pain (R10.9: Unspecified abdominal pain) 2. Urinary frequency (R35.0: Frequency of micturition) Eloped from emergency department (Z53.21: Procedure and treatment not carried out due to patient leaving prior to being seen by health care provider) Medications Administered Given ketorolac 30 mg/mL Inj 1 mL, 30 mg, IntraMuscular ondansetron 4 mg Dis Tab, 4 mg, Oral Disposition Plan Patient Discharge Condition Fair Discharge Disposition Eloped Discharge Prescription List Prescriptions No active prescription medications Follow-up No qualifying data available Attestation Patient seen and evaluated by the physician construction assistant. Attending physician was present in the emergency department and supervised care. This visit was performed by both the physician and an APC. I performed all aspects of the MDM as documented. This report was transcribed using voice recognition software. Every effort was made to ensure accuracy, however, inadvertently computerized bill recapitulation clerk mistakes may be present. Appropriate healthcare PPE [...] Wellness examination Historical Bipolar Continuous opioid dependence Hepati (more content not included)...[facility] HospitalComment on above:Result Comment: Electronically Signed By: Manuel Naik PA-C.\.br\Date and Time Signed: 05/23/2521:19 EST\.br\Electronically Co-Signed By: Elisa Sánchez DO\.br\Date and Time Co-Signed: 05/23/24 22:49 ESTED Patient Education Noteon [id number] Patient Education NoteED Patient Education NoteNoTriHealth CenterED Patient Summaryon [id number] Patient SummaryED Patient Summary [address] [address] Patient Discharge Instructions Person Information Name: JERAD TRACY Age: 49 Years Arrival Date: 05/23/2024 18:39:16 Discharge Diagnosis: 1:Right flank pain; 2:Urinary frequency; Eloped from emergency department Primary Care Physician: AMARI SOTO, [facility] Provider Information Primary Provider: Elisa Sánchez DO Advanced Dietetic Intern:Manuel Naik PA-C The exam and treatment you received in the Emergency Department were for an urgent problem and are not intended as complete care. It is important that you follow up with a doctor, nurse practitioner,or physician???s construction assistant for ongoing care. If your symptoms become worse or you do not improve asexpected and you are unable to reach your usual health care provider, you should return to the Emergency Department. We are available 24 hours a day. JERAD TRACY has been given the following list of patient education materials, prescriptions andfollow-up instructions: Follow-up Instructions: In the event that this physician does not participate in your insurance network, please consult with your insurance company to find a nearby participating provider. Patient Education Materials: A MESSAGE TO ALL PATIENTS REGARDING OPIOIDS PRESCRIPTION OPIOIDS: WHAT YOU NEED TO KNOW Prescription opioids can be used to help relieve envkhcsb-pm-ezcvcd pain and are often prescribed following a [...] guidance from the Food and Drug Administration (www.fda.gov/Drugs/ResourcesForYou). ??? Visit www.cdc.gov/drugoverdose to learn about the risks of opioids abuse and overdose. ??? If you believe you may be struggling with addiction, tell your health childcare aide and askfor guidance or call [facility]???S National Helpline at 9-432-164-UBSW. v Source: [place] (more content not included)...[facility] HEMATOLOGYOrdered By: SYSTEM SYSTEM on 07-99-6286Ubcmnzmpp/100 WBC (Bld)0.3 % Normal0.0 - 2.0 %Remisol HemeBasophils/Leukocytes Auto (Bld) [Pure # fraction] 0.0 E9/LNormal0.0 - 0.2 E9/LRemisol HemeEosinophils (Bld) [#/Vol]0.2 E9/LNormal 0.0 - 0.5 E9/LRemisol HemeEosinophils/100 WBC (Bld)1.3 %Normal0.0 - 8.0 %Remisol HemeErythrocyte distribution width (RBC) [Ratio]14.4 %High10.9 - 14.2 %Remisol HemeHematocrit (Bld) [Volume fraction]44.2 %Wrhbqu82.0 - 46.0 %Remisol Heme Hemoglobin (Bld) [Mass/Vol]14.9 g/dCDzfayl24.0 - 16.0 gm/dLRemisol Heme Lymphocytes (Bld) [#/Vol]2.3 E9/LNormal1.0 - 4.0 E9/LRemisol HemeLymphocytes/100 WBC (Bld)18.7 %Vhfltq37.0 - 50.0 %Remisol HemeMCH (RBC) [Entitic mass]30.4 pg Eqnnyd69.0 - 34.0 pgRemisol HemeMCHC (RBC) [Mass/Vol]33.8 g/pFJjswdv88.4 - 36.0 gm/dLRemisol HemeMCV (RBC) [Entitic vol]89.9 tJIpwnlo78.0 - 100.0 fLRemisol Heme Monocytes (Bld) [#/Vol]0.7 E9/LNormal0.2 - 1.0 E9/LRemisol HemeMonocytes/100 WBC (Bld)5.4 %Normal4.0 - 14.0 %Remisol HemeNeutrophils (Bld) [#/Vol]9.2 E9/LHigh 2.0 - 7.5 E9/LRemisol HemeNeutrophils/100 WBC (Bld)74.3 %Ljwann77.0 - 75.0 % Remisol HemePlatelet mean volume (Bld) [Entitic vol]8.2 fLNormal6.4 - 10.8 fL Remisol HemePlatelets (Bld) [#/Vol]339.0 E9/APhwmvg204.0 - 500.0 E9/LRemisol HemeRBC (Bld) [#/Vol]4.9 E12/LNormal4.3 - 5.9 E12/LRemisol HemeWBC corrected for nucl RBC Auto (Bld) [#/Vol]12.4 E9/LHigh4.0 - 11.0 E9/LRemisol HemeHep Func Panelon 03-47-0102Lerzvzb [Mass/Vol]4.2 g/dLNormal3.3-5.0[facility] HospitalComment on above:Performed By: #### [id number] #### [facility] [address] [place], [place] [address]Utadpql/Globulin (S) [Mass conc ratio]1.2Itybtk8.1-2.2FClermont County HospitalComment on above:Performed By: #### [id number] #### [facility] [address] [place], [place] [address]SKC [Catalytic activity/Vol]97 Int._Unit/VLqeqhy18-15LfuxhxOhiohealth Berger HospitalComment on above:Performed By: #### [id number] #### [facility] [address] [place], [place] [address]QGG No additional P-5'-P [Catalytic activity/Vol]12 Int._Unit/L Normal6-46Ohiohealth Berger HospitalComment on above:Performed By: #### [id number] #### [facility] [address] [place] [address]MZX [Catalytic activity/Vol]13 Int._Unit/LNormal5-43Ohio[facility] Berger HospitalComment on above:Performed By: #### [id number] #### [facility] [address] [place] [address]Nfpymfwbt [Mass/Vol]0.4 mg/dLNormal0.0-1.1FClermont County HospitalComment on above:Performed By: #### [id number] #### [facility] [address] [place] [address], [place] [address]Lgqtsntbm.direct [Mass/Vol]0.1 mg/dLNormal0.0-0.4FClermont County HospitalComment on above:Performed By: #### [id number] #### [facility] [address], [place] [address]Bmhkutrux.indirect [Mass or moles/Vol]0.3 mg/dLNormal0.1-0.9 [facility] HospitalComment on above:Performed By: #### [id number] #### [facility] [address] [place] [address]Hyusqwym (S) [Mass/Vol]3.4 g/dLNormal1.4-4.0Ohio[facility] Berger HospitalComment on above:Performed By: #### [id number] #### [facility] [address] [place], [place] [address]Darlfbi [Mass/Vol]7.6 g/dLNormal6.0-7.8Ohio[facility] Berger HospitalComment on above:Performed By: #### [id number] #### [facility] [address] [place] [address], [place] [address]Orcbzh Levelon 70-48-9469Vgxwal [Catalytic activity/Vol]10 U/L Lbm74-68JycztsOhiohealth Berger HospitalComment on above:Performed By: #### [id number] #### [facility] [address] [place] [address], [place] [address]QA with Cult Rflxon 78-08-9391Biyjtmlom Ql (U)NegativeNormal NegativeOhiohealth Berger HospitalComment on above:Performed By: #### [id number] ####[facility] [address] [place], [place] [address]Tfjptzk (U)ClearNormalClearOhiohealth Berger HospitalComment on above: Performed By: #### [id number] ####[facility] [address] [place], [place]Color (U)Light-YellowNormalYellowOhiohealth Berger HospitalComment on above:Result Comment: Microscopic readings are only performed on those samples that meet specific criteria set forth by [facility].Performed By: #### [id number] ####[facility] [address] [place], [place]Glucose Ql (U)NegativeNormal NegativeOhiohealth Berger HospitalComment on above:Performed By: #### [id number] ####[facility] [address] [place], [place] [address]Ehgnzwctrm Auto test strip (U) [Mass/Vol]NegativeNormalNegativeOhiohealth Berger HospitalComment on above:Performed By: #### [id number] ####[facility] [address] AveNorcalvary hospitalk, [place]Tlydyww Auto test strip Ql (U)NegativeNormalNegativeOhiohealth Berger HospitalComment on above: Performed By: #### [id number] ####[facility] [address]tuqfdsqh[address] Station AveNorcalvary hospitalk, [place]Tssipdksr esterase Auto test strip Ql (U)Negative NormalNegativeOhiohealth Berger HospitalComment on above:Performed By: #### [id number] ####[place] [address] AveNorgaylord hospital, [place] [address]Hnkgdwu Auto test strip Ql (U)NegativeNormalNegKindred Hospital DaytonComment on above:Performed By: #### [id number] ####[place] [address] [address] AveNorgaylord hospital, ET[address]oG (U)7.0 [pH]Invalid Interpretation Code5.0-9.0Ohio[facility] Berger HospitalComment on above:Performed By: #### [id number] ####[place] [address] AveNorcalvary hospitalk, WE[address]Ucdbhjv Ql (U)NegativeNormalNegKindred Hospital DaytonComment on above:Performed By: #### [id number] ####[place] [address] AveNorgaylord hospital, [place]Nywyuxio gravity (U) [Rel density]1.024Invalid Interpretation Code1.005-1.030[facility] Comment on above:Performed By: #### [id number] ####[place] [address] AveNorcalvary hospitalk, [id number] (U) [Mass/Vol]Negative NormalNegKindred Hospital DaytonComment on above:Performed By: #### [id number] ####[place] [address] AveNuniversity of [facility], [place] [address]Nkpf of Urine collection methodClean [facility] Comment on above:Performed By: #### [id number] ####[facility] [address] Sararickycalvary hospitalnoéCROWLEY, [place]YJ[address]KSPQRNHHZKUgrlfhd By: SYSTEM SYSTEM on 87-68-9824Jzxxtgqde Ql (U)NegativeNormalNegativemg/dLFT UA Auto SSClarity (U) Clear (05/23/24 7:47 PM)NormalClearFLAWTON INDI[facility] [place] UA Auto SSColor (U)Light-Yellow 1 (05/23/24 7:47 PM)NormalYellowHARPER COUNTY COMM[facility]ITY [facility] [place] UA Auto SSComment on above:Interpretive Data: Microscopic readings are only performed on those samples that meet specific criteria set forth by [facility].Glucose Ql (U) NegativeNormalNegativemg/dLFT UA Auto SSHemoglobin Auto test strip (U) [Mass/Vol]NegativeNormalNegativemg/dLHARPER COUNTY COMM[facility]ITY [facility]OS[facility] [place] UA Auto SSKetones Auto test strip Ql (U)NegativeNormalNegativemg/dLHARPER COUNTY COMMUNITY [facility]OSP[facility] [place] UA Auto SSLeukocyte esterase Auto test strip Ql (U)NegativeNormalNegativeLeu/uLFT UA Auto SSNitrite Auto test strip Ql (U) NegativeNormalNegativemg/dLHARPER COUNTY COMMUNITY [facility]OS[facility] [place] UA Auto SSpH (U)7.0 *NA* (05/23/24 7:47 PM)Invalid Interpretation Code5.0 - 9.0[facility] [place] UA Auto SSProtein Ql (U)NegativeNormalNegativemg/dLHARPER COUNTY COMMUNITY [facility]OSP[facility] [place] UA Auto SSSpecific gravity (U) [Rel density] 1.024 *NA* (05/23/24 7:47 PM)Invalid Interpretation Code1.005 - 1.030[facility] UA Auto SS Urobilinogen (U) [Mass/Vol]NegativeNormalNegativemg/dLHARPER COUNTY COMMUNITY [facility]OSP[facility] [place] UA Auto SSURINALYSIS Ordered By: Manuel Naik on [id number] Spec DescClean Catch (05/23/24 7:47 PM)NormalHARPER COUNTY COMMUNITY HOSPITAL – [place] UA Auto SSeGFRon 13-44-4491dNGQ59 mL/min/1.73 m2 Normal>=59Fisher [facility] Shock Trauma CenterComment on above:Performed By: #### [id number] #### [facility] [address] [place], [place] [address]HXT W Auto Differential panel (Bld)on 45-21-2835Kkhemrwwq (Bld) [#/Vol]0 10*3/uLUnWood County HospitalBasophils/100 WBC (Bld)0 %0.0 - 2.0 %[facility] HospitalEosinophils (Bld) [#/Vol]0.17 10*3/uL [facility] HospitalEosinophils/100 WBC (Bld)2 %0.0 - 6.0 % [facility] HospitalErythrocyte distribution width (RBC) [Ratio] 13.2 %11.5 - 14.5 %[facility] HospitalHematocrit (Bld) [Volume fraction]38.9 %36.0 - 46.0 %[facility] HospitalHemoglobin (Bld) [Mass/Vol]13 g/dL12.0 - 16.0 g/dLUnWood County HospitalImmamount st. mary hospital granulocytes (Bld) [#/Vol]0.03 10*3/uLUnWood County HospitalImmamount st. mary hospital granulocytes/100 WBC (Bld)0.3 %0.0 - 0.9 %[facility] Comment on above:Immature Granulocyte Count (IG) includes promyelocytes, myelocytes and metamyelocytes but does not include bands. Percent differential counts (%) should be interpreted in the context of the absolute cell counts (cells/UL).Interpretation and review of laboratory resultsAbnormalUniShelby Memorial HospitalLymphocytes (Bld) [#/Vol]1.18 10*3/uLLowUnWood County HospitalLymphocytes/100 WBC (Bld)13.6 %13.0 - 44.0 %[facility] Edwin ShawH (RBC) [Entitic mass]29.5 pg26.0 - 34.[address] Joseph Warren HospitalHC (RBC) [Mass/Vol]33.4 g/dL32.0 - 36.0 g/dLSelect Medical Cleveland Clinic Rehabilitation Hospital, Edwin ShawV (RBC) [Entitic vol]88 fL80 - 100 fLUniShelby Memorial HospitalMonocytes (Bld) [#/Vol]0.44 10*3/uLUnWood County HospitalMonocytes/100 WBC (Bld)5.1 %2.0 - 10.0 %[facility] HospitalNeutrophils (Bld) [#/Vol]6.84 10*3/[facility] Comment on above:Percent differential counts (%) should be interpreted in the context of the absolute cell counts (cells/uL).Neutrophils/100 WBC (Bld)79 %40.0 - 80.0 %[facility] HospitalNucleated RBC/100 WBC (Bld) [Ratio]0 % [facility] HospitalPlatelets (Bld) [#/Vol]271 10*3/[facility] HospitalRBC (Bld) [#/Vol]4.4 10*6/[facility] HospitalWBC (Bld) [#/Vol]8.7 10*3/[facility] HospitalUnWood County HospitalBasophils (Bld) [#/Vol]0.00 x10*3/uLNormal0.00-0.10 [facility] HospitalComment on above:Performed By: #### 4537-7 #### JOLENE Cantu ([id number]) [facility] ([facility]) [address] [place], [place] [address]Tbntqwakk/100 WBC (Bld)0.0 %Normal0.0-2.0UnSamaritan North Health CenterComment on above:Performed By: #### 4537-7 #### JOLENE Cantu ([id number]) [facility] ([facility]) [address] [place], [place] [address]Rdtitszaory (Bld) [#/Vol]0.17 x10*3/uLNormal0.00-0.70 [facility] Memorial HospitalComment on above:Performed By: #### 4537-7 #### JOLENE Cantu ([id number]) [facility] ([facility]) [address] [place], [place] [address]Wpgoygiagho/100 WBC (Bld)2.0 %Normal0.0-6.0UnSamaritan North Health CenterComment on above:Performed By: #### 4537-7 #### JOLENE Cantu ([id number]) [facility] ([facility]) [address] [place], [place] [address]Sumtcygzghn distribution width (RBC) [Ratio]13.2 %Normal 11.5-14.5UnSamaritan North Health CenterComment on above:Performed By: #### 4537-7 #### JOLENE Cantu (98081) [facility] ([facility]) [address] [place] [address]Mgtdqnyzwu (Bld) [Volume fraction]38.9 %Vtoxwv64.0-46.0 [facility] Memorial HospitalComment on above:Performed By: #### 4537-7 #### JOLENE Cantu ([id number]) [facility] ([facility]) [address] [place] [address]Lyfeyydoly (Bld) [Mass/Vol]13.0 g/dOYkaqrp68.0-16.0UnSamaritan North Health CenterComment on above:Performed By: #### 4537-7 #### JOLENE Cantu ([id number]) [facility] ([facility]) [address] [place] [address]Pnvfniwc granulocytes (Bld) [#/Vol]0.03 x10*3/uLNormal 0.00-0.70UnSamaritan North Health CenterComment on above:Performed By: #### 4537-7 #### JOLENE Cantu ([id number]) [facility] ([facility]) [address] [place] [address]Exggmirw granulocytes/100 WBC (Bld)0.3 %Normal0.0-0.9 [facility] Memorial HospitalComment on above:Result Comment: Immature Granulocyte Count (IG) includes promyelocytes, myelocytes and metamyelocytes but does not include bands. Percent differential counts (%) should be interpreted in the context of the absolute cell counts (cells/UL). Performed By: #### 4537-7 #### JOLENE Cantu (40501) [facility] ([facility]) [address] [place] [address]Xiuonnkbazn (Bld) [#/Vol]1.18 x10*3/uLLow1.20-4.80[facility] Memorial HospitalComment on above:Performed By: #### 4537-7 #### JOLENE Cantu ([id number]) [facility] ([facility]) [address] [place], [place] [address]Rszspnqneli/100 WBC (Bld)13.6 %Jqllsi29.0-44.0UnSamaritan North Health CenterComment on above:Performed By: #### 4537-7 #### JOLENE Cantu ([id number]) [facility] ([facility]) [address] [place], [place] [address]GVY (RBC) [Entitic mass]29.5 qyJppmsu38.0-34.0UnSamaritan North Health CenterComment on above:Performed By: #### 4537-7 #### JOLENE Cantu (38919) [facility] ([facility]) [address] [place], [place] [address]YPQA (RBC) [Mass/Vol]33.4 g/ePWmcysj98.0-36.0UnSamaritan North Health CenterComment on above:Performed By: #### 4537-7 #### JOLENE Cantu (40976) [facility] ([facility]) [address] [place] [address]DEW (RBC) [Entitic vol]88 fTLwdcgg05-484QevxhdvucxSamaritan North Health CenterComment on above:Performed By: #### 4537-7 #### JOLENE Cantu ([id number]) [facility] ([facility]) [address] [place], [place] [address]Okeytiisl (Bld) [#/Vol]0.44 x10*3/uLNormal0.10-1.00UnSamaritan North Health CenterComment on above:Performed By: #### 4537-7 #### JOLENE Cantu ([id number]) [facility] ([facility]) [address] [place], [place] [address]Egixvwyft/100 WBC (Bld)5.1 %Normal2.0-10.0UnSamaritan North Health CenterComment on above:Performed By: #### 4537-7 #### JOLENE Cantu (93230) [facility] ([facility]) [address] [place] [address]Cefeajhyuab (Bld) [#/Vol]6.84 x10*3/uLNormal1.20-7.70 [facility] HospitalComment on above:Result Comment: Percent differential counts (%) should be interpreted in the context of the absolute cell counts (cells/uL).Performed By: #### 4537-7 #### JOLENE Cantu ([id number]) [facility] ([facility]) [address] [place] [address]Nbuviwjxuqh/100 WBC (Bld)79.0 %Hminno98.0-80.0[facility] Memorial HospitalComment on above:Performed By: #### 4537-7 #### JOLENE Cantu (30017) [facility] ([facility]) [address] [place] [address]Emruydbmq RBC/100 WBC (Bld) [Ratio]0.0 /100 WBCsNormal0.0-0.0 [facility] Memorial HospitalComment on above:Performed By: #### 4537-7 #### JOLENE Cantu (25572) [facility] ([facility]) [address] [place], [place] [address]Kaoxirhio (Bld) [#/Vol]271 x10*3/mYTyqxzt139-513RdyfympsuvSamaritan North Health CenterComment on above:Performed By: #### 4537-7 #### JOLENE Cantu (48078) [facility] ([facility]) [address] [place] [address]XYX (Bld) [#/Vol]4.40 x10*6/uLNormal4.00-5.20UnSamaritan North Health CenterComment on above:Performed By: #### 4537-7 #### JOLENE Cantu (21774) [facility] ([facility]) [address] [place], [place] [address]ZOX (Bld) [#/Vol]8.7 x10*3/uLNormal4.4-11.3UnSamaritan North Health CenterComment on above:Performed By: #### 4537-7 #### JOLENE Cantu (12944) [facility] ([facility]) [address] [place] [address]Ohmmfklzfnn 39-61-2500Jgpvmzedx [Mass/Vol]1.91 mg/dL1.60 - 2.40 mg/dLUnWood County HospitalMagnesium [Mass/Vol]1.91 mg/dLNormal 1.60-2.40UnSamaritan North Health CenterComment on above:Performed By: #### 99173-2 #### JOLENE Cantu (74459) [facility] ([facility]) [address] [place] [address]Ipdtyanie [Mass/Vol]on 94-18-2986Oydhgspinmosix and review of laboratory resultsNormalUniShelby Memorial HospitalNo Panel Informationon 91-23-8605JgxsdioxwwWood County Hospital1. Rim enhancing fluid collection in the cutaneous fat overlying the posterior elements of the L4, slightly to the left of midline demonstrates ongoing mild interval decrease in size, now measuring 2.3 x 2.1 x 4.4 cm compared to 3.2 x 3.3 x 5.4 cm on previous imaging dated 04/24/2024. No new fluid collections are identified. 2. No new stenosis is identified in the thoracic or lumbar spine, with similar appearance of the degenerative changes to prior exam on 04/24/2024. No new pathologic leptomeningeal or epidural enhancement is present. I personally reviewed the images/study and I agree with Germaine Solitario DO's (vice president of news) findings as stated. This study was interpreted at [place], [place]. MACRO: None Signed by: Bernadette Tapia 05/16/2024 3:44 AM Dictation workstation: [id number] By: Bernadette Tapia and Stephens Katherine STUDY: MR LUMBAR SPINE W AND WO IV CONTRAST; MR THORACIC SPINE W AND WO IV CONTRAST; 05/16/2024 1:23 am INDICATION: Signs/Symptoms:new urinary incontience, known fluid collection; Signs/Symptoms:known fluid collection, now with urinary incontinence. COMPARISON: MRI lumbar spine 04/24/2024; MRI thoracic spine 12/18/2023 ACCESSION NUMBER(S): [id number]; [id number] ORDERING CLINICIAN: MAGGIE DEGROOT TECHNIQUE: Sagittal T1, T2, STIR and axial T2 and T1 weighted MR images of the thoracic and lumbar spine were obtained. Additionally sagittal and axial T1 weighted images were obtained after the administration of 20 mL Dotarem intravenous contrast. FINDINGS: THORACIC SPINE: There are 12 rib-bearing thoracic vertebrae. Thoracic vertebral alignment is maintained without evidence of new spondylolisthesis. Thoracic vertebral body heights are preserved without evidence of new compression fractures. No new STIR hyperintense edema or T1 hypointense, marrow replacing enhancing process is identified. Posterior elements do not demonstrate any acute abnormality. Multilevel intervertebral disc desiccation is present, without significant disc height loss. Although the exam is somewhat degraded by motion and large field of view, no discrete intramedullary cord signal abnormality is present. No pathologic leptomeningeal or epidural enhancement is identified. Stable degenerative changes of the thoracic spine compared to exam dated 12/18/2023 including mild facet arthrosis spanning T3-4 through T9-10 and T11-12 through T12-L1 without significant spinal canal or neural foraminal stenosis. Pzjg-oxyunwz-xvwc-right illh-di-blksatwh facet arthrosis at T10-11 causes mild spinal canal stenosis with the effacement of the dorsal subarachnoid space. Note is made of a perineural cyst in the left T12-L1 neural foramen measuring approximately 0.7 x 0.6 cm. Paraspinal soft tissues in the lumbar spine do not demonstrate any acute abnormality. LUMBAR SPINE: There are 5 lumbar type vertebral bodies. The last well-formed disc space is labeled L5-S1. Lumbar vertebral alignment is maintained without evidence of new spondylolisthesis. Vertebrae/Intervertebral Discs: The vertebral bodies demonstrate expected height. Postsurgical changes are noted from left L4 hemilaminectomy. The marrow signal is within normal limits. No abnormal enhancing lesions. Mild disc desiccation and loss of intervertebral disc height at L4-5 with degenerative endplate changes. Conus: The conus terminates at L2. T12-L1: Perineural cyst in the left neural foramen as described above. No significant spinal canal or neural foraminal stenosis. L1-2: Facet arthrosis without significant spinal canal or neural foraminal stenosis. L2-3: Facet arthrosis without significant spinal canal or neural foraminal stenosis. L3-4: Facet arthrosis without significant spinal canal or neural foraminal stenosis. L4-5: Asymmetric left disc bulge and facet arthrosis narrowing the zlgc-wqfotiw-zzyv-right lateral recesses and causing rxhy-cg-pphcbrtg bilateral neural foraminal stenosis. No significant spinal canal stenosis. L5-S1: Disc bulge, facet arthrosis, and ligamentum flavum hypertrophy causing moderate right and mild left neural foraminal stenosis. No significant spinal canal stenosis. Re-demonstration of a peripherally enhancing fluid collection of the level of L3-4 on the left measuring 4.4 x 2.4 x 2.5 (previously 5.4 x 3.7 x 3.4). Findings may reflect a postoperative seroma or abscess (series 19, image 34 and 17, image 17). There is surrounding soft tissue edema and susceptibility artifact. [facility] MMODALBernadette Tapia MD - 05/16/2024 Interpreted By: Bernadette Tapia and Stephens Katherine STUDY: MR LUMBAR SPINE W AND WO IV CONTRAST; MR THORACIC SPINE W AND WO IV CONTRAST; 05/16/2024 1:23 am INDICATION: Signs/Symptoms:new urinary incontience, known fluid collection; Signs/Symptoms:known fluid collection, now with urinary incontinence. COMPARISON: MRI lumbar spine 04/24/2024; MRI thoracic spine 12/18/2023 ACCESSION NUMBER(S): [id number]; [id number] ORDERING CLINICIAN: MAGGIE DEGROOT TECHNIQUE: Sagittal T1, T2, STIR and axial T2 and T1 weighted MR images of the thoracic and lumbar spine were obtained. Additionally sagittal and axial T1 weighted images were obtained after the administration of 20 mL Dotarem intravenous contrast. FINDINGS: THORACIC SPINE: There are 12 rib-bearing thoracic vertebrae. Thoracic vertebral alignment is maintained without evidence of new spondylolisthesis. Thoracic vertebral body heights are preserved without evidence of new compression fractures. No new STIR hyperintense edema or T1 hypointense, marrow replacing enhancing process is identified. Posterior elements do not demonstrate any acute abnormality. Multilevel intervertebral disc desiccation is present, without significant disc height loss. Although the exam is somewhat degraded by motion and large field of view, no discrete intramedullary cord signal abnormality is present. No pathologic leptomeningeal or epidural enhancement is identified. Stable degenerative changes of the thoracic spine compared to exam dated 12/18/2023 including mild facet arthrosis spanning T3-4 through T9-10 and T11-12 through T12-L1 without significant spinal canal or neural foraminal stenosis. Bsol-qzgmdoa-dkrw-right fnqf-de-fwhxzwjn facet arthrosis at T10-11 causes mild spinal canal stenosis with the effacement of the dorsal subarachnoid space. Note is made of a perineural cyst in the left T12-L1 neural foramen measuring approximately 0.7 x 0.6 cm. Paraspinal soft tissues in the lumbar spine do not demonstrate any acute abnormality. LUMBAR SPINE: There are 5 lumbar type vertebral bodies. The last well-formed disc space is labeled L5-S1. Lumbar vertebral alignment is maintained without evidence of new spondylolisthesis. Vertebrae/Intervertebral Discs: The vertebral bodies demonstrate expected height. Postsurgical changes are noted from left L4 hemilaminectomy. The marrow signal is within normal limits. No abnormal enhancing lesions. Mild disc desiccation and loss of intervertebral disc height at L4-5 with degenerative endplate changes. Conus: The conus terminates at L2. T12-L1: Perineural cyst in the left neural foramen as described above. No significant spinal canal or neural foraminal stenosis. L1-2: Facet arthrosis without significant spinal canal or neural foraminal stenosis. L2-3: Facet arthrosis without significant spinal canal or neural foraminal stenosis. L3-4: Facet arthrosis without significant spinal canal or neural foraminal stenosis. L4-5: Asymmetric left disc bulge and facet arthrosis narrowing the fonp-yxgwljp-vkxq-right lateral recesses and causing jbzo-ze-xibupkyj bilateral neural foraminal stenosis. No significant spinal canal stenosis. L5-S1: Disc bulge, facet arthrosis, and ligamentum flavum hypertrophy causing moderate right and mild left neural foraminal stenosis. No significant spinal canal stenosis. Re-demonstration of a peripherally enhancing fluid collection of the level of L3-4 on the left measuring 4.4 x 2.4 x 2.5 (previously 5.4 x 3.7 x 3.4). Findings may reflect a postoperative seroma or abscess (series 19, image 34 and 17, image 17). There is surrounding soft tissue edema and susceptibility artifact. IMPRESSION: 1. Rim enhancing fluid collection in the cutaneous fat overlying the posterior elements of the L4, slightly to the left of midline demonstrates ongoing mild interval decrease in size, now measuring 2.3 x 2.1 x 4.4 cm compared to 3.2 x 3.3 x 5.4 cm on previous imaging dated 04/24/2024. No new fluid collections are identified. 2. No new stenosis is identified in the thoracic or lumbar spine, with similar appearance of the degenerative changes to prior exam on 04/24/2024. No new pathologic leptomeningeal or epidural enhancement is present. I personally reviewed the images/study and I agree with Germaine Solitario DO's (vice president of news) findings as stated. This study was interpreted at [place], [place]. MACRO: None Signed by: Bernadette Tapia 05/16/2024 3:44 AM Dictation workstation: [id number] [facility] Work Phone: No Panel InformationOrdered By: Bernadette Tapia on [id number] County Hospital Work Phone: Renal function 2000 panelon [id number] BCP dye [Mass/Vol]3.8 g/dL3.4 - 5.0 g/dLUnWood County HospitalAnion gap [Moles/Vol]14 mmol/L10 - 20 mmol/[facility] HospitalCalcium [Mass/Vol]8.5 mg/dLLow8.6 - 10.6 mg/dLUnWood County HospitalChloride [Moles/Vol]105 mmol/L98 - 107 mmol/[facility] HospitalCO2 [Moles/Vol]25 mmol/L21 - 32 mmol/[facility] HospitalCreatinine [Mass/Vol]0.71 mg/dL0.50 - 1.05 mg/dLUnWood County HospitaleGFR- PINF [facility] HospitalComment on above:Calculations of estimated GFR are performed using the 2020 CKD-EPI Study Refit equation without therace variable for the IDMS-Traceable creatinine methods. https://jasn.asnjournals.org/content//ASN.6420391958 Glucose [Mass/Vol]121 mg/hEXmif19 - 99 mg/dLUnWood County Hospital Interpretation and review of laboratory resultsAbnormalUniShelby Memorial HospitalPhosphate [Mass/Vol]4 mg/dL2.5 - 4.9 mg/dLUnWood County HospitalCommclaren northern mich[place] on above:The performance characteristics of phosphorus testing in heparinized plasma have been validated by the individual laboratory site where testing is performed. Testing on heparinized plasma is not approved by the FDA; however, such approval is not necessary.Potassium [Moles/Vol]3.9 mmol/L3.5 - 5.3 mmol/[facility] HospitalSodium [Moles/Vol]140 mmol/L136 - 145 mmol/[facility] HospitalUrea nitrogen [Mass/Vol]13 mg/dL6 - 23 mg/dLUnWood County HospitalAlbumin BCP dye [Mass/Vol]3.8 g/dL Normal3.4-5.0UnSamaritan North Health CenterComment on above: Performed By: #### 56565-8 #### JOLENE Cantu ([id number]) [facility] ([facility]) [address] [place] [address]43[address]Kkmjv gap [Moles/Vol]14 mmol/WZdodur03-06YpzzknssbbSamaritan North Health CenterComment on above:Performed By: #### 55331-3 #### JOLENE Cantu ([id number]) [facility] ([facility]) [address] [place] [address] 35394Dzszcbp [Mass/Vol]8.5 mg/dLLow8.6-10.6UnSamaritan North Health CenterComment on above:Performed By: #### 41076-1 #### JOLENE Cantu ([id number]) [facility] ([facility]) [address] [place], [place] [address]Cgpqboun [Moles/Vol]105 mmol/EPlkjll97-461YnvffcfpcsSamaritan North Health CenterComment on above:Performed By: #### 63378-8 #### JOLENE Cantu ([id number]) [facility] ([facility]) [address] [place], [place] [address]AU1 [Moles/Vol]25 mmol/JGybjri87-52NvjyyffjwgSamaritan North Health CenterComment on above:Performed By: #### 59309-7 #### JOLENE Cantu ([id number]) [facility] ([facility]) [address] [place], [place] [address]Kzpqszxayd [Mass/Vol]0.71 mg/dLNormal0.50-1.05UnSamaritan North Health CenterComment on above:Performed By: #### 37389-6 #### JOLENE Cantu (58854) [facility] ([facility]) [address] [place], [place] [address]EOZ/1.73 sq M.predicted MDRD (S/P/Bld) [Vol rate/Area] mL/min/{1.73_m2}Normal>60UnSamaritan North Health CenterComment on above:Result Comment: Calculations of estimated GFR are performed using the 2020 CKD-EPI Study Refit equation without the race variable for the IDMS-Traceable creatinine methods. https://jasn.asnjournals.org/content//ASN.2545822781Dzifdobvf By: #### 66094-4 #### JOLENE Cantu ([id number]) [facility] ([facility]) [address] [place], [place] [address]Hxhlvfd [Mass/Vol]121 mg/xJOjkz57-53QturjnidaoSamaritan North Health CenterComment on above:Performed By: #### 38995-2 #### JOLENE Cantu ([id number]) [facility] ([facility]) [address] [place], [place] [address]Oazyspioy [Mass/Vol]4.0 mg/dLNormal2.5-4.9UnSamaritan North Health CenterComment on above:Result Comment: The performance characteristics of phosphorus testing in heparinized plasma have bee n validated by the individual laboratory site where testing is performed. Testing on heparinizedplasma is not approved by the FDA; however, such approval is not necessary.Performed By: #### 83528-3 #### JOLENE Cantu ([id number]) [facility] ([facility]) [address] [place] [address]Yuqxnaies [Moles/Vol]3.9 mmol/LNormal3.5-5.3UnSamaritan North Health CenterComment on above:Performed By: #### 64555-9 #### JOLENE Cantu ([id number]) [facility] ([facility]) [address] [place] [address]Gqmupn [Moles/Vol]140 mmol/KHdtfen298-156KreljsuickSamaritan North Health CenterComment on above:Performed By: #### 58369-6 #### JOLENE Cantu ([id number]) [facility] ([facility]) [address] [place] [address]Dbar nitrogen [Mass/Vol]13 mg/dLNormal6-23UnSamaritan North Health CenterComment on above:Performed By: #### 22253-2 #### JOLENE Cantu ([id number]) [facility] ([facility]) [address] [place] [address] 18409S reactive proteinon 00-55-9958ZVC [Mass/Vol]1.18 mg/dLHigh <1.00UnSamaritan North Health CenterComment on above:Performed By: #### 4537-7 #### JOLENE Cantu ([id number]) [facility] ([facility]) [address] [place] [address]K-oaetakwx proteinon 60-97-9926UIH [Mass/Vol]1.18 mg/dLHigh NINF - 1.00 mg/dLUnWood County HospitalCB W Auto Differential panel (Bld)on 74-25-4672Htuzuwadk (Bld) [#/Vol]0.01 10*3/[facility] HospitalBasophils/100 WBC (Bld)0.1 %0.0 - 2.0 %[facility] HospitalEosinophils (Bld) [#/Vol]0.15 10*3/[facility] Eosinophils/100 WBC (Bld)1.5 %0.0 - 6.0 %[facility] Erythrocyte distribution width (RBC) [Ratio]13.4 %11.5 - 14.5 %[facility] HospitalHematocrit (Bld) [Volume fraction]42.4 %36.0 - 46.0 % [facility] HospitalHemoglobin (Bld) [Mass/Vol]13.9 g/dL12.0 - 16.0 g/dLUnWood County HospitalImmamount st. mary hospital granulocytes (Bld) [#/Vol]0.03 10*3/[facility] HospitalImchristian hospital granulocytes/100 WBC (Bld)0.3 % 0.0 - 0.9 %[facility] HospitalComment on above:Immature Granulocyte Count (IG) includes promyelocytes, myelocytes and metamyelocytes but does not include bands. Percent differential counts (%) should be interpreted in the context of the absolute cell counts (cells/UL).Lymphocytes (Bld) [#/Vol] 2.37 10*3/[facility]ers HospitalLymphocytes/100 WBC (Bld)24.2 %13.0 - 44.0 %[facility] ShawH (RBC) [Entitic mass]28.9 pg26.0 - 34.0 pgUnWood County HospitalMCHC (RBC) [Mass/Vol]32.8 g/dL32.0 - 36.0 g/dLSelect Medical [facility] Clinic Rehabilitation Hospital, Edwin ShawV (RBC) [Entitic vol]88 fL80 - 100 fLUniShelby Memorial HospitalMonocytes (Bld) [#/Vol]0.61 10*3/[facility] HospitalMonocytes/100 WBC (Bld)6.2 %2.0 - 10.0 %[facility] HospitalNeutrophils (Bld) [#/Vol]6.63 10*3/[facility] HospitalComment on above:Percent differential counts (%) should be interpreted in the context of the absolute cell counts (cells/uL). Neutrophils/100 WBC (Bld)67.7 %40.0 - 80.0 %[facility] Nucleated RBC/100 WBC (Bld) [Ratio]0 %[facility] HospitalPlatelets (Bld) [#/Vol]325 10*3/[facility] HospitalRBC (Bld) [#/Vol]4.81 10*6/[facility] HospitalWBC (Bld) [#/Vol]9.8 10*3/[facility] HospitalUnWood County HospitalBasophils (Bld) [#/Vol] 0.01 x10*3/uLNormal0.00-0.10[facility] HospitalComment on above:Performed By: #### 4537-7 #### JOLENE Cantu ([id number]) [facility] ([facility]) [address] [place], [place] [address]Bmhdybnwf/100 WBC (Bld)0.1 %Normal0.0-2.0UnSamaritan North Health CenterComment on above:Performed By: #### 4537-7 #### JOLENE Cantu ([id number]) [facility] ([facility]) [address] [place] [address]69[address]Kdwlmtwmcum (Bld) [#/Vol]0.15 x10*3/uLNormal0.00-0.70 [facility] Memorial HospitalComment on above:Performed By: #### 4537-7 #### JOLENE Cantu ([id number]) [facility] ([facility]) [address] [place], [place] [address]Fcfgzskxpaz/100 WBC (Bld)1.5 %Normal0.0-6.0UnSamaritan North Health CenterComment on above:Performed By: #### 4537-7 #### JOLENE Cantu ([id number]) [facility] ([facility]) [address] [place], [place] [address]Wlnsomihche distribution width (RBC) [Ratio]13.4 %Normal 11.5-14.5UnSamaritan North Health CenterComment on above:Performed By: #### 4537-7 #### JOLENE Cantu ([id number]) [facility] ([facility]) [address] [place], [place] [address]Dsodfpgoka (Bld) [Volume fraction]42.4 %Roquuq98.0-46.0 [facility] Memorial HospitalComment on above:Performed By: #### 4537-7 #### JOLENE Cantu ([id number]) [facility] ([facility]) [address] [place], [place] [address]Huhsigkwda (Bld) [Mass/Vol]13.9 g/mPLchwur10.0-16.0UnSamaritan North Health CenterComment on above:Performed By: #### 4537-7 #### JOLENE Cantu ([id number]) [facility] ([facility]) [address] [place] [address]26[address]Tovdqbgm granulocytes (Bld) [#/Vol]0.03 x10*3/uLNormal 0.00-0.70UnSamaritan North Health CenterComment on above:Performed By: #### 4537-7 #### JOLENE Cantu ([id number]) [facility] ([facility]) [address] [place] [address]Xabgrtgd granulocytes/100 WBC (Bld)0.3 %Normal0.0-0.9 [facility] Memorial HospitalComment on above:Result Comment: Immature Granulocyte Count (IG) includes promyelocytes, myelocytes and metamyelocytes but does not include bands. Percent differential counts (%) should be interpreted in the context of the absolute cell counts (cells/UL). Performed By: #### 4537-7 #### JOLENE Cantu ([id number]) [facility] ([facility]) [address] [place] [address] 618[address]Mbjuoubpxov (Bld) [#/Vol]2.37 x10*3/uLNormal1.20-4.80 [facility] HospitalComment on above:Performed By: #### 4537-7 #### JOLENE Cantu (54536) [facility] ([facility]) [address] [place], [place] [address]Kmxevkljipq/100 WBC (Bld)24.2 %Oqgakg35.0-44.0UnSamaritan North Health CenterComment on above:Performed By: #### 4537-7 #### JOLENE Cantu ([id number]) [facility] ([facility]) [address] [place] [address] 71490PYR (RBC) [Entitic mass]28.9 mnGlwsnd28.0-34.0UnSamaritan North Health CenterComment on above:Performed By: #### 4537-7 #### JOLENE Cantu ([id number]) [facility] ([facility]) [address] [place] [address] 73[address]SKUC (RBC) [Mass/Vol]32.8 g/aPYytliz73.0-36.0UnSamaritan North Health CenterComment on above:Performed By: #### 4537-7 #### JOLENE Cantu ([id number]) [facility] ([facility]) [address] [place] [address] 21833RAQ (RBC) [Entitic vol]88 oIWqhlxy63-555UxctbsaorpSamaritan North Health CenterComment on above:Performed By: #### 4537-7 #### JOLENE Cantu ([id number]) [facility] ([facility]) [address] [place] [address] 795[address]Pmvbkjgov (Bld) [#/Vol]0.61 x10*3/uLNormal0.10-1.00UnSamaritan North Health CenterComment on above:Performed By: #### 4537-7 #### JOLENE Cantu ([id number]) [facility] ([facility]) [address] [place] [address] 74948Zjzioghqy/100 WBC (Bld)6.2 %Normal2.0-10.0UnSamaritan North Health CenterComment on above:Performed By: #### 4537-7 #### JOLENE Cantu ([id number]) [facility] ([facility]) [address] [place], [place] [address]Wmhipugyjtl (Bld) [#/Vol]6.63 x10*3/uLNormal1.20-7.70 [facility] HospitalComment on above:Result Comment: Percent differential counts (%) should be interpreted in the context of the absolute cell counts (cells/uL).Performed By: #### 4537-7 #### JOLENE RONQUILLO L ([id number]) [facility] ([facility]) [address] [place], [place] [address]Yrxumdkhhfb/100 WBC (Bld)67.7 %Slvajl13.0-80.0UnSamaritan North Health CenterComment on above:Performed By: #### 4537-7 #### JOLENE Cantu (97566) [facility] ([facility]) [address] [place] [address] 43689Ytzwqrrwe RBC/100 WBC (Bld) [Ratio]0.0 /100 WBCsNormal0.0-0.0 [facility] HospitalComment on above:Performed By: #### 4537-7 #### JOLENE RONQUILLO L ([id number]) [facility] ([facility]) [address] [place] [address] 10190Vtdbcicta (Bld) [#/Vol]325 x10*3/sBWqvgzh177-047KjztypoognSamaritan North Health CenterComment on above:Performed By: #### 4537-7 #### JOLENE RONQUILLO L ([id number]) [facility] ([facility]) [address] [place], [place] [address]UGS (Bld) [#/Vol]4.81 x10*6/uLNormal4.00-5.20UnSamaritan North Health CenterComment on above:Performed By: #### 4537-7 #### JOLENE WELSHMOTZSUSAN L (87948) [facility] ([facility]) [address] [place], [place] [address]BKF (Bld) [#/Vol]9.8 x10*3/uLNormal4.4-11.3UnSamaritan North Health CenterComment on above:Performed By: #### 4537-7 #### JOLENE Cantu ([id number]) [facility] ([facility]) [address] [place] [id number] metabolic 2000 panelon 13-55-1040Pdnmjcd BCP dye [Mass/Vol]4.5 g/dL3.4 - 5.0 g/dLUnWood County HospitalALP [Catalytic activity/Vol]104 U/L33 - 110 U/[facility] HospitalALT With P-5'-P [Catalytic activity/Vol]20 U/L7 - 45 U/[facility] HospitalCommclaren northern [place] on above:Patients treated with Sulfasalazine may generate falsely decreased results for ALT.Anion gap [Moles/Vol]13 mmol/L10 - 20 mmol/L [facility] HospitalAST With P-5'-P [Catalytic activity/Vol]17 U/L9 - 39 U/[facility] HospitalBilirubin [Mass/Vol]0.3 mg/dL0.0 - 1.2 mg/dLUnWood County HospitalCalcium [Mass/Vol]9.2 mg/dL8.6 - 10.6 mg/dLUnWood County HospitalChloride [Moles/Vol]102 mmol/L98 - 107 mmol/[facility] HospitalCO2 [Moles/Vol]30 mmol/L21 - 32 mmol/L [facility] HospitalCreatinine [Mass/Vol]0.72 mg/dL0.50 - 1.05 mg/dLUnWood County HospitaleGFR- PINFUniversSelect Specialty Hospital - EvansvilleCommclaren northern [place] on above:Calculations of estimated GFR are performed using the 2020 CKD-EPI Study Refit equation without therace variable for the IDMS- Traceable creatinine methods. https://jasn.asnjournals.org/content//ASN.5913558444 Glucose [Mass/Vol]103 mg/vPYfdi49 - 99 mg/dLUnWood County Hospital Potassium [Moles/Vol]3.6 mmol/L3.5 - 5.3 mmol/[facility] Protein [Mass/Vol]7.9 g/dL6.4 - 8.2 g/dLJoint Township District Memorial HospitalSodium [Moles/Vol]141 mmol/L136 - 145 mmol/[facility] HospitalUrea nitrogen [Mass/Vol]12 mg/dL6 - 23 mg/dLJoint Township District Memorial HospitalAlbumin BCP dye [Mass/Vol]4.5 g/dLNormal3.4-5.0UnSamaritan North Health CenterComment on above:Performed By: #### 4537-7 #### JOLENE Cantu (42089) [facility] ([facility]) [address] [place] [address] 32309BTF [Catalytic activity/Vol]104 U/RNixdkp07-116ZmmykmkchrSamaritan North Health CenterComment on above:Performed By: #### 4537-7 #### JOLENE Cantu (73071) [facility] ([facility]) [address] [place] [address]OHK With P-5'-P [Catalytic activity/Vol]20 U/LNormal7-45 [facility] Memorial HospitalComment on above:Result Comment: Patients treated with Sulfasalazine may generate falsely decreased results for ALT.Performed By: #### 4537-7 #### JOLENE Cantu ([id number]) [facility] ([facility]) [address] [place] [address] 300[address]Jzmkj gap [Moles/Vol]13 mmol/AMzwkpt86-47NbugkjmivySamaritan North Health CenterComment on above:Performed By: #### 4537-7 #### JOLENE Cantu ([id number]) [facility] ([facility]) [address] [place] [address]TPK With P-5'-P [Catalytic activity/Vol]17 U/LNormal9-39 [facility] HospitalComment on above:Performed By: #### 4537-7 #### JOLENE Cantu ([id number]) [facility] ([facility]) [address] [place], [place] [address]Cygwglgjd [Mass/Vol]0.3 mg/dLNormal0.0-1.2[facility] HospitalComment on above:Performed By: #### 4537-7 #### JOLENE RONQUILLO L ([id number]) [facility] ([facility]) [address] [place] [address] 609[address]Htvbxyi [Mass/Vol]9.2 mg/dLNormal8.6-10.6[facility] HospitalComment on above:Performed By: #### 4537-7 #### JOLENE NELSONTZER L ([id number]) [facility] ([facility]) [address] [place] [address] 27[address]Gyrjoale [Moles/Vol]102 mmol/BHkzhnh13-062BkrugjenwnSamaritan North Health CenterComment on above:Performed By: #### 4537-7 #### JOLENE WELSHMOTZER L ([id number]) [facility] ([facility]) [address] [place] [address] [id number] [Moles/Vol]30 mmol/WTjwvvy51-44BprwoijrroSamaritan North Health CenterComment on above:Performed By: #### [id number] #### JOLENE RONQUILLO L ([id number]) [facility] ([facility]) [id number] [place] [address] 58805Xcajegbaic [Mass/Vol]0.72 mg/dLNormal0.50-1.05UnSamaritan North Health CenterComment on above:Performed By: #### [id number] #### JOLENE RONQUILLO L ([id number]) [facility] ([facility]) [id number] [place] [address] 18687ZXG/1.73 sq M.predicted MDRD (S/P/Bld) [Vol rate/Area] mL/min/{1.73_m2}Normal>60UnSamaritan North Health CenterComment on above:Result Comment: Calculations of estimated GFR are performed using the 2020 CKD-EPI Study Refit equation without the race variable for the IDMS-Traceable creatinine methods. https://jasn.asnjournals.org/content//ASN.4870211392Iyyjlhpuq By: #### [id number] #### JOLENE Cantu ([id number]) [facility] ([facility]) [id number] [place] [address] 69502Jgpxbqk [Mass/Vol]103 mg/xIZofp03-44YqvjoxxxmtSamaritan North Health CenterComment on above:Performed By: #### [id number] #### JOLENE Cantu ([id number]) [facility] ([facility]) [id number] [place] [address] 97462Mmrqltpat [Moles/Vol]3.6 mmol/LNormal3.5-5.3[facility] HospitalComment on above:Performed By: #### [id number] #### JOLENE Cantu ([id number]) [facility] ([facility]) [address] [place] [address] 50290Eqilxso [Mass/Vol]7.9 g/dLNormal6.4-8.2UnSamaritan North Health CenterComment on above:Performed By: #### [id number] #### JOLENE Cantu ([id number]) [facility] ([facility]) [address] [place] [address] 08837Ahhbsz [Moles/Vol]141 mmol/AYrstea142-117SvfdspieqzSamaritan North Health CenterComment on above:Performed By: #### [id number] #### JOLENE Cantu ([id number]) [facility] ([facility]) [address] [place] [address] 14635Lbcy nitrogen [Mass/Vol]12 mg/dLNormal6-23[facility] HospitalComment on above:Performed By: #### [id number] #### JOLENE Cantu ([id number]) [facility] ([facility]) [address] [place] [address] 02128VTF 12-LEADon 08-78-1299LSO 12-LEADVentricular Rate 93 Atrial Rate 93 P-R Interval 138 QRS Duration 80 Q-T Interval 356 QTC Calculation(Bazett) 442 P Meyers Chuck 47 R Meyers Chuck 46 T Meyers Chuck 38 QRS Count 15 Q Onset 218 P Onset 149 P Offset 200 T Offset 396 QTC Fredericia 412 Diagnosis Poor data quality, interpretation may be adversely affected Normal sinus rhythm Cannot rule out Anterior infarct , age undetermined Borderline ECG Confirmed by Corbin Mcgarry ([id number]) on 05/21/2024 4:32:34 [facility] CenterESR Westergren method (Bld) [Velocity]on [id number] (Bld) [Velocity]47 mm/hHigh0 - 20 mm/[facility] HospitalInterpretation and review of laboratory resultsAbPremier Health Upper Valley Medical CenterESR (Bld) [Velocity]47 mm/hHigh0-20[facility] HospitalComment on above:Performed By: #### 4537-7 #### JOLENE Cantu ([id number]) [facility] ([facility]) [address] [place] [address] 83065ZW LUMBAR SPINE W AND WO IV CONTRASTon [id number] LUMBAR SPINE W AND WO IV CONTRASTInterpreted By: Bernadette Tapia and Luca Schneider STUDY: MR LUMBAR SPINE W AND WO IV CONTRAST; MR THORACIC SPINE W AND WO IV CONTRAST; 05/16/2024 1:23 am INDICATION: Signs/Symptoms:new urinary incontience, known fluid collection; Signs/Symptoms:known fluid collection, now with urinary incontinence. COMPARISON: MRI lumbar spine 04/24/2024; MRI thoracic spine 12/18/2023 ACCESSION NUMBER(S): [id number]; [id number] ORDERING CLINICIAN: MAGGIE DEGROOT TECHNIQUE: Sagittal T1, T2, STIR and axial T2 and T1 weighted MR images of the thoracic and lumbar spine were obtained. Additionally sagittal and axial T1 weighted images were obtained after the administration of 20 mL Dotarem intravenous contrast. FINDINGS: THORACIC SPINE: There are 12 rib-bearing thoracic vertebrae. Thoracic vertebral alignment is maintained without evidence of new spondylolisthesis. Thoracic vertebral body heights are preserved without evidence of new compression fractures. No new STIR hyperintense edema or T1 hypointense, marrow replacing enhancing process is identified. Posterior elements do not demonstrate any acute abnormality. Multilevel intervertebral disc desiccation is present, without significant disc height loss. Although the exam is somewhat degraded by motion and large field of view, no discrete intramedullary cord signal abnormality is present. No pathologic leptomeningeal or epidural enhancement is identified. Stable degenerative changes of the thoracic spine compared to exam dated 12/18/2023 including mild facet arthrosis spanning T3-4 through T9-10 and T11-12 through T12-L1 without significant spinal canal or neural foraminal stenosis. Xhka-lxfjtwb-uhgp-right ihss-ss-idchbjop facet arthrosis at T10-11 causes mild spinal canal stenosis with the effacement of the dorsal subarachnoid space. Note is made of a perineural cyst in the left T12-L1 neural foramen measuring approximately 0.7 x 0.6 cm. Paraspinal soft tissues in the lumbar spine do not demonstrate any acute abnormality. LUMBAR SPINE: There are 5 lumbar type vertebral bodies. The last well-formed disc space is labeled L5-S1. Lumbar vertebral alignment is maintained without evidence of new spondylolisthesis. Vertebrae/Intervertebral Discs: The vertebral bodies demonstrate expected height. Postsurgical changes are noted from left L4 hemilaminectomy. The marrow signal is within normal limits. No abnormal enhancing lesions. Mild disc desiccation and loss of intervertebral disc height at L4-5 with degenerative endplate changes. Conus: The conus terminates at L2. T12-L1: Perineural cyst in the left neural foramen as described above. No significant spinal canal or neural foraminal stenosis. L1-2: Facet arthrosis without significant spinal canal or neural foraminal stenosis. L2-3: Facet arthrosis without significant spinal canal or neural foraminal stenosis. L3-4: Facet arthrosis without significant spinal canal or neural foraminal stenosis. L4-5: Asymmetric left disc bulge and facet arthrosis narrowing the izhl-vkodngw-fsdp-right lateral recesses and causing zfpd-uy-tcvggvno bilateral neural foraminal stenosis. No significant spinal canal stenosis. L5-S1: Disc bulge, facet arthrosis, and ligamentum flavum hypertrophy causing moderate right and mild left neural foraminal stenosis. No significant spinal canal stenosis. Re-demonstration of a peripherally enhancing fluid collection of the level of L3-4 on the left measuring 4.4 x 2.4 x 2.5 (previously 5.4 x 3.7 x 3.4). Findings may reflect a postoperative seroma or abscess (series 19, image 34 and 17, image 17). There is surrounding soft tissue edema and susceptibility artifact. IMPRESSION: 1. Rim enhancing fluid collection in the cutaneous fat overlying the posterior elements of the L4, slightly to the left of midline demonstrates ongoing mild interval decrease in size, now measuring 2.3 x 2.1 x 4.4 cm compared to 3.2 x 3.3 x 5.4 cm on previous imaging dated 04/24/2024. No new fluid collections are identified. 2. No new stenosis is identified in the thoracic or lumbar spine, with similar appearance of the degenerative changes to prior exam on 04/24/2024. No new pathologic leptomeningeal or epidural enhancement is present. I personally reviewed the images/study and I agree with Germaine Solitario DO's (vice president of news) findings as stated. This study was interpreted at [place], [place]. MACRO: None Signed by: Bernadette Tapia 05/16/2024 3:44 AM Dictation workstation: [id number] Valley Medical CenterMR THORACIC SPINE W AND WO IV CONTRASTon [id number] THORACIC SPINE W AND WO IV CONTRASTInterpreted By: Bernadette Tapia, and Luca Schneider STUDY: MR LUMBAR SPINE W AND WO IV CONTRAST; MR THORACIC SPINE W AND WO IV CONTRAST; 05/16/2024 1:23 am INDICATION: Signs/Symptoms:new urinary incontience, known fluid collection; Signs/Symptoms:known fluid collection, now with urinary incontinence. COMPARISON: MRI lumbar spine 04/24/2024; MRI thoracic spine 12/18/2023 ACCESSION NUMBER(S): [id number]; [id number] ORDERING CLINICIAN: MAGGIE DEGROOT TECHNIQUE: Sagittal T1, T2, STIR and axial T2 and T1 weighted MR images of the thoracic and lumbar spine were obtained. Additionally sagittal and axial T1 weighted images were obtained after the administration of 20 mL Dotarem intravenous contrast. FINDINGS: THORACIC SPINE: There are 12 rib-bearing thoracic vertebrae. Thoracic vertebral alignment is maintained without evidence of new spondylolisthesis. Thoracic vertebral body heights are preserved without evidence of new compression fractures. No new STIR hyperintense edema or T1 hypointense, marrow replacing enhancing process is identified. Posterior elements do not demonstrate any acute abnormality. Multilevel intervertebral disc desiccation is present, without significant disc height loss. Although the exam is somewhat degraded by motion and large field of view, no discrete intramedullary cord signal abnormality is present. No pathologic leptomeningeal or epidural enhancement is identified. Stable degenerative changes of the thoracic spine compared to exam dated 12/18/2023 including mild facet arthrosis spanning T3-4 through T9-10 and T11-12 through T12-L1 without significant spinal canal or neural foraminal stenosis. Pbtu-eaiacek-shxw-right vuyk-sd-aqjnpxsp facet arthrosis at T10-11 causes mild spinal canal stenosis with the effacement of the dorsal subarachnoid space. Note is made of a perineural cyst in the left T12-L1 neural foramen measuring approximately 0.7 x 0.6 cm. Paraspinal soft tissues in the lumbar spine do not demonstrate any acute abnormality. LUMBAR SPINE: There are 5 lumbar type vertebral bodies. The last well-formed disc space is labeled L5-S1. Lumbar vertebral alignment is maintained without evidence of new spondylolisthesis. Vertebrae/Intervertebral Discs: The vertebral bodies demonstrate expected height. Postsurgical changes are noted from left L4 hemilaminectomy. The marrow signal is within normal limits. No abnormal enhancing lesions. Mild disc desiccation and loss of intervertebral disc height at L4-5 with degenerative endplate changes. Conus: The conus terminates at L2. T12-L1: Perineural cyst in the left neural foramen as described above. No significant spinal canal or neural foraminal stenosis. L1-2: Facet arthrosis without significant spinal canal or neural foraminal stenosis. L2-3: Facet arthrosis without significant spinal canal or neural foraminal stenosis. L3-4: Facet arthrosis without significant spinal canal or neural foraminal stenosis. L4-5: Asymmetric left disc bulge and facet arthrosis narrowing the ixei-surqpmt-yvph-right lateral recesses and causing zewk-us-pfuxiihn bilateral neural foraminal stenosis. No significant spinal canal stenosis. L5-S1: Disc bulge, facet arthrosis, and ligamentum flavum hypertrophy causing moderate right and mild left neural foraminal stenosis. No significant spinal canal stenosis. Re-demonstration of a peripherally enhancing fluid collection of the level of L3-4 on the left measuring 4.4 x 2.4 x 2.5 (previously 5.4 x 3.7 x 3.4). Findings may reflect a postoperative seroma or abscess (series 19, image 34 and 17, image 17). There is surrounding soft tissue edema and susceptibility artifact. IMPRESSION: 1. Rim enhancing fluid collection in the cutaneous fat overlying the posterior elements of the L4, slightly to the left of midline demonstrates ongoing mild interval decrease in size, now measuring 2.3 x 2.1 x 4.4 cm compared to 3.2 x 3.3 x 5.4 cm on previous imaging dated 04/24/2024. No new fluid collections are identified. 2. No new stenosis is identified in the thoracic or lumbar spine, with similar appearance of the degenerative changes to prior exam on 04/24/2024. No new pathologic leptomeningeal or epidural enhancement is present. I personally reviewed the images/study and I agree with Germaine Solitario DO's (vice president of news) findings as stated. This study was interpreted at [place], [place]. MACRO: None Signed by: Bernadette Tapia 05/16/2024 3:44 AM Dictation workstation: [id number] Valley Medical CenterNo Panel Informationon [id number] and review of laboratory resultsAbnoProtestant Deaconess HospitalUnWood County HospitalRadiology Study observation (narrative)[facility] Work Phone: basic metabolic 1999 panelon [id number] gap [Moles/Vol]11 mmol/L10 - 20 mmol/[facility] HospitalCalcium [Mass/Vol]8.6 mg/dL8.6 - 10.3 mg/dLUnWood County HospitalChloride [Moles/Vol]105 mmol/L98 - 107 mmol/[facility] HospitalCO2 [Moles/Vol]27 mmol/L21 - 32 mmol/[facility] HospitalCreatinine [Mass/Vol]0.71 mg/dL0.50 - 1.05 mg/dLUnWood County HospitaleGFR- PINF [facility] HospitalComment on above:Calculations of estimated GFR are performed using the 2020 CKD-EPI Study Refit equation without therace variable for the IDMS-Traceable creatinine methods. https://jasn.asnjournals.org/content//ASN.3021922294 Glucose [Mass/Vol]96 mg/dL74 - 99 mg/dLJoint Township District Memorial Hospital Interpretation and review of laboratory resultsNormalUniShelby Memorial HospitalPotassium [Moles/Vol]4.3 mmol/L3.5 - 5.3 mmol/[facility] HospitalComment on above:MILD HEMOLYSIS DETECTED. The result may be falsely elevated due to hemolysis or other interferents.Clinical correlation is recommended. Repeat testing may be considered.Sodium [Moles/Vol]139 mmol/L136 - 145 mmol/[facility] HospitalUrea nitrogen [Mass/Vol]15 mg/dL6 - 23 mg/dLJoint Township District Memorial HospitalAnion gap [Moles/Vol]11 mmol/LNormal 10-20UnBarnesville HospitalComment on above:Performed By: #### 78049-3 #### SANTOSH BAI ([id number]) [facility] ([facility]) [address] [place], [place] [address]Eihpxnz [Mass/Vol]8.6 mg/dLNormal8.6-10.3UnBarnesville HospitalComment on above:Performed By: #### 44725-8 #### SANTOSH BAI ([id number]) [facility] ([facility]) [address] [place], [place] [address]Jmhsmdlz [Moles/Vol]105 mmol/FZmayoy52-940EdouewknjyBarnesville HospitalComment on above:Performed By: #### 44670-0 #### SANTOSH BAI ([id number]) [facility] ([facility]) [address] [place], [place] [address]PG1 [Moles/Vol]27 mmol/HRhjued96-51EffhnjhdedBarnesville HospitalComment on above:Performed By: #### 13029-8 #### SANTOSH BAI ([id number]) [facility] ([facility]) [address] [place], [place] [address]Hjcldsyumk [Mass/Vol]0.71 mg/dLNormal0.50-1.05UnBarnesville HospitalComment on above:Performed By: #### 65000-8 #### SANTOSH BAI ([id number]) [facility] ([facility]) [address] [place], [place] [address]UUY/1.73 sq M.predicted MDRD (S/P/Bld) [Vol rate/Area] mL/min/{1.73_m2}Normal>60UnBarnesville HospitalComment on above:Result Comment: Calculations of estimated GFR are performed using the 2020 CKD-EPI Study Refit equation without the race variable for the IDMS-Traceable creatinine methods. https://jasn.asnjournals.org/content/early//ASN.1293752407Hfkennuby By: #### 01042-9 #### SANTOSH BAI ([id number]) [facility] ([facility]) [address] [place], [place] [address]Rwfgfwe [Mass/Vol]96 mg/oJWzsixv23-79NhtznsklkqBarnesville HospitalComment on above:Performed By: #### 22937-6 #### SANTOSH BAI ([id number]) [facility] ([facility]) [address] [place], [place] [address]Yqejeenct [Moles/Vol]4.3 mmol/LNormal3.5-5.3UnBarnesville HospitalComment on above:Result Comment: MILD HEMOLYSIS DETECTED. The result may be falsely elevated due to hemolysis or other interferents. Clinical correlation is recommended. Repeat testing may be considered.Performed By: #### 82750-5 #### SANTOSH BAI ([id number]) [facility] ([facility]) [address] [place], [place] [address]Osrewr [Moles/Vol]139 mmol/NYmqoox609-665CodjdamyynBarnesville HospitalComment on above:Performed By: #### 94184-6 #### SANTOSH BAI ([id number]) [facility] ([facility]) [address] [place], [place] [address]Uone nitrogen [Mass/Vol]15 mg/dLNormal6-23UnBarnesville HospitalComment on above:Performed By: #### 75045-2 #### SANTOSH BAI ([id number]) [facility] ([facility]) [address] [place], [place] [address]B reactive proteinon 90-66-7427DVB [Mass/Vol]1.41 mg/dLHigh <1.00UnBarnesville HospitalComment on above:Performed By: #### 05886-4 #### SANTOSH BAI ([id number]) [facility] ([facility]) [address] [place], [place] [address]Z-Qvboaypm Proteinon [id number] [Mass/Vol]1.41 mg/dLHigh NINF - 1.00 mg/dLUnWood County HospitalCB W Auto Differential panel (Bld)on 80-23-2789Pqjajhmvp (Bld) [#/Vol]0.02 10*3/[facility] HospitalBasophils/100 WBC (Bld)0.2 %0.0 - 2.0 %[facility] HospitalEosinophils (Bld) [#/Vol]0.11 10*3/[facility] Eosinophils/100 WBC (Bld)1.2 %0.0 - 6.0 %[facility] Erythrocyte distribution width (RBC) [Ratio]13.4 %11.5 - 14.5 %[facility] HospitalHematocrit (Bld) [Volume fraction]42.7 %36.0 - 46.0 % [facility] HospitalHemoglobin (Bld) [Mass/Vol]13.9 g/dL12.0 - 16.0 g/dLUnWood County HospitalImchristian hospital granulocytes (Bld) [#/Vol]0.03 10*3/[facility]ers HospitalImchristian hospital granulocytes/100 WBC (Bld)0.3 % 0.0 - 0.9 %[facility] HospitalComment on above:Immature Granulocyte Count (IG) includes promyelocytes, myelocytes and metamyelocytes but does not include bands. Percent differential counts (%) should be interpreted in the context of the absolute cell counts (cells/UL).Lymphocytes (Bld) [#/Vol] 2.26 10*3/[facility] [facility]riners HospitalLymphocytes/100 WBC (Bld)24.9 %13.0 - 44.0 %[facility], Edwin ShawH (RBC) [Entitic mass]29.5 pg26.0 - 34.[address] Joseph Warren HospitalHC (RBC) [Mass/Vol]32.6 g/dL32.0 - 36.0 g/dLSelect Medical [facility] Clinic Rehabilitation Hospital, Edwin ShawV (RBC) [Entitic vol]91 fL80 - 100 fLUniversSelect Specialty Hospital - EvansvilleMonocytes (Bld) [#/Vol]0.64 10*3/[facility] HospitalMonocytes/100 WBC (Bld)7.1 %2.0 - 10.0 %[facility] HospitalNeutrophils (Bld) [#/Vol]6.01 10*3/[facility] HospitalComment on above:Percent differential counts (%) should be interpreted in the context of the absolute cell counts (cells/uL). Neutrophils/100 WBC (Bld)66.3 %40.0 - 80.0 %[facility] Nucleated RBC/100 WBC (Bld) [Ratio]0 %[facility] HospitalPlatelets (Bld) [#/Vol]345 10*3/[facility] [facility] HospitalRBC (Bld) [#/Vol]4.71 10*6/[facility] [facility]ers HospitalWBC (Bld) [#/Vol]9.1 10*3/[facility] CampusBasophils (Bld) [#/Vol] 0.02 x10*3/uLNormal0.00-0.10UnBarnesville HospitalComment on above:Performed By: #### 12226-3 #### SANTOSH BAI ([id number]) [facility] ([facility]) [address] [place], [place] [address]Skrerfjtw/100 WBC (Bld)0.2 %Normal0.0-2.0UnBarnesville HospitalComment on above:Performed By: #### 24020-5 #### SANTOSH BAI ([id number]) [facility] ([facility]) [address] [place], [place] [address]Maawysfepiy (Bld) [#/Vol]0.11 x10*3/uLNormal0.00-0.70 [facility] HospitalComment on above:Performed By: #### 82198-3 #### SANTOSH BAI (15852) [facility] ([facility]) [address] [place], [place] [address]Pwjiswmqaxh/100 WBC (Bld)1.2 %Normal0.0-6.0UnBarnesville HospitalComment on above:Performed By: #### 62765-9 #### SANTOSH BAI (50456) [facility] ([facility]) [address] [place], [place] [address]Xajnyqowlyd distribution width (RBC) [Ratio]13.4 %Normal 11.5-14.5UnBarnesville HospitalComment on above:Performed By: #### 11524-7 #### SANTOSH BAI ([id number]) [facility] ([facility]) [address] [place], [place] [address]Oygltwczgd (Bld) [Volume fraction]42.7 %Yjizdl07.0-46.0 [facility] HospitalComment on above:Performed By: #### 75250-0 #### SANTOSH BAI (53450) [facility] ([facility]) [address] [place], [place] [address]Jhttmflwap (Bld) [Mass/Vol]13.9 g/gPJuwxbm52.0-16.0UnBarnesville HospitalComment on above:Performed By: #### 82828-8 #### SANTOSH BAI ([id number]) [facility] ([facility]) [address] [place], [place] [address]Nkspjqoi granulocytes (Bld) [#/Vol]0.03 x10*3/uLNormal 0.00-0.70UnBarnesville HospitalComment on above:Performed By: #### 54124-9 #### SANTOSH BAI ([id number]) [facility] ([facility]) [address] [place], [place] [address]Lruksvmc granulocytes/100 WBC (Bld)0.3 %Normal0.0-0.9 [facility] HospitalComment on above:Result Comment: Immature Granulocyte Count (IG) includes promyelocytes, myelocytes and metamyelocytes but does not include bands. Percent differential counts (%) should be interpreted in the context of the absolute cell counts (cells/UL). Performed By: #### 15045-3 #### SANTOSH BAI (59526) [facility] ([facility]) [address] [place], [place] [address]Mofekmwrntp (Bld) [#/Vol]2.26 x10*3/uLNormal1.20-4.80 [facility] HospitalComment on above:Performed By: #### 95141-9 #### SANTOSH BAI ([id number]) [facility] ([facility]) [address] [place], [place] [address]Hyvdrfnxqlk/100 WBC (Bld)24.9 %Sshlyn43.0-44.0UnBarnesville HospitalComment on above:Performed By: #### 85259-5 #### SANTOSH BAI ([id number]) [facility] ([facility]) [address] [place], [place] [address]BBU (RBC) [Entitic mass]29.5 uqIzeovq17.0-34.0UnBarnesville HospitalComment on above:Performed By: #### 10468-9 #### SANTOSH BAI (91056) [facility] ([facility]) [address] [place], [place] [address]XXPZ (RBC) [Mass/Vol]32.6 g/fWVgnykx17.0-36.0UnBarnesville HospitalComment on above:Performed By: #### 41125-2 #### SANTOSH BAI (18265) [facility] ([facility]) [address] [place], [place] [address]UUR (RBC) [Entitic vol]91 eILygwes63-859GukaekpkecBarnesville HospitalComment on above:Performed By: #### 24123-6 #### SANTOSH BAI (15935) [facility] ([facility]) [address] [place], [place] [address]Powjwvjyq (Bld) [#/Vol]0.64 x10*3/uLNormal0.10-1.00[facility]acon[facility] HospitalComment on above:Performed By: #### 24530-8 #### SANTOSH BAI (62071) [facility] ([facility]) [address] [place], [place] [address]Xyhamlonq/100 WBC (Bld)7.1 %Normal2.0-10.0UnBarnesville HospitalComment on above:Performed By: #### 58625-5 #### SANTOSH BAI (18083) [facility] ([facility]) [address] [place], [place] [address]Guiuicjrubw (Bld) [#/Vol]6.01 x10*3/uLNormal1.20-7.70 [facility] HospitalComment on above:Result Comment: Percent differential counts (%) should be interpreted in the context of the absolute cell counts (cells/uL).Performed By: #### 65170-7 #### SANTOSH BAI ([id number]) [facility] ([facility]) [address] [place], [place] [address]Mtmppipqbsu/100 WBC (Bld)66.3 %Qgvwdr32.0-80.0Pro[facility] Deaconess HospitalComment on above:Performed By: #### 54400-8 #### SANTOSH BAI ([id number]) [facility] ([facility]) [address] [place], [place] [address]Wylvwptfy RBC/100 WBC (Bld) [Ratio]0.0 /100 WBCsNormal0.0-0.0 [facility]acon[facility] HospitalComment on above:Performed By: #### 22770-5 #### SANTOSH BAI ([id number]) [facility] ([facility]) [address] [place], [place] [address]Hvbcjchve (Bld) [#/Vol]345 x10*3/qIXpfsid718-554UusdrdqsjcBarnesville HospitalComment on above:Performed By: #### 40248-0 #### SANTOSH BAI ([id number]) [facility] ([facility]) [address] [place], [place] [address]GTW (Bld) [#/Vol]4.71 x10*6/uLNormal4.00-5.20[facility]aconess HospitalComment on above:Performed By: #### 97834-7 #### SANTOSH BAI ([id number]) [facility] ([facility]) [address] [place], [place] [address]RDY (Bld) [#/Vol]9.1 x10*3/uLNormal4.4-11.3UnBarnesville HospitalComment on above:Performed By: #### 60845-7 #### SANTOSH BAI ([id number]) [facility] ([facility]) [address] [place], [place] [address]WQF [Mass/Vol]on 61-78-2145Zkiqojrcfklxii and review of laboratory resultsAbChillicothe Hospital Clinical Summaryon [id number] Clinical SummaryED Clinical Summary [place] [address] ED Clinical Summary Person Information Name: [facility]ERAD [facility]AC[facility] Age[facility] 49 Years : 1975 Sex: Female Language: Malagasy PCP: NONE, XXXX Marital Status: Visit Id: Visit Reason: Back pain; LOWER BACK PAIN Speciality: Acuity: 4 Enc Type: Emergency Med Service: Emergency Arrival: 05/14/2024 09:03:16 Discharge: 05/14/2024 09:24:20 LOS: 000 00:21 Checkin: 05/14/2024 09:03:16 Checkout: 05/14/2024 09:24:20 Dispo Type: Home (Routine DC) EVENTS: Event Name Event Status Request Date/Time Start Date/Time Complete Date/Time Arrive Complete 05/14/2024 09:03:16 05/14/2024 09:03:16 05/14/2024 09:03:16 Document Home Meds Request 05/14/2024 09:03:16 Triage Complete 05/14/2024 09:03:16 05/14/2024 09:12:08 05/14/2024 09:12:08 Bed Assign Complete 05/14/2024 09:07:06 05/14/2024 09:07:06 05/14/2024 09:07:06 Dr Exam Complete 05/14/2024 09:07:06 05/14/2024 09:08:45 05/14/2024 09:08:45 RN Exam Complete 05/14/2024 09:07:06 05/14/2024 09:16:07 05/14/2024 09:16:07 Registration Complete 05/14/2024 09:08:45 05/14/2024 09:13:07 05/14/2024 09:18:26 Dr Exam Complete 05/14/2024 09:10:07 05/14/2024 09:10:07 05/14/2024 09:10:07 Discharge Complete 05/14/2024 09:17:52 05/14/2024 09:24:27 05/14/2024 09:24:27 Reg Complete Request 05/14/2024 09:18:26 Reg Bed Request Complete 05/14/2024 09:18:26 05/14/2024 09:18:26 05/14/2024 09:18:26 Transfer Complete 05/14/2024 09:24:27 05/14/2024 09:24:27 05/14/2024 09:24:27 ADDRESS: [address] [place] [phone] PHYS DOC NOTES: MEDICAL INFORMATION: Prescriptions Given: Medications to Continue with No Changes Other Medications acetaminophen-oxycodone (Percocet 5 mg-325 mg oral tablet) 1 Tablets By Mouth every 6 hours as needed Pain 8-10. Refills: 0. azithromycin (azithromycin 250 mg Tab) 250 Milligram By Mouth As Directed. Take two tabs by mouth on day one, then one tab daily. Refills: 0. cyclobenzaprine (cyclobenzaprine 10 mg Tab) 1 Tablets By Mouth 3 times a day as needed for spasm. Refills: 0. cyclobenzaprine (cyclobenzaprine 10 mg Tab) 1 Tablets By Mouth 3 times a day as needed for spasm. Refills: 0. cyclobenzaprine (cyclobenzaprine 10 mg Tab) [...] hours off daily. Refills: 0. lidocaine topical (lidocaine Top 5% [...] and 12 hours off daily. Refills: 0. naproxen (Naprosyn 500 mg Tab) 1 Tablets By Mouth 2 times a day as needed for pain. Refills: 0. ondansetron (Zofran 4 mg Tab) [...] daily x3 days.. Refills: 0. predniSONE (predniSONE 10 mg Tab) 1 Tablets By Mouth As Directed. Take 3 tabs by mouth daily x3 days, then 2 tabs daily x3 days, then 1 tab daily x3 days.. Refills: 0. predniSONE (predniSONE 20 mg Tab) 3 By Mouth every day. Refills: 0. PATIENT EDUCATION INFORMATION: Instructions: Chronic Back Pain Follow up: With: Address: When: [facility] [address] [place] [phone] Business ([employer] In 3 days 05/17/2024 With: Address: When: MARLEE FITZPATRICK [address] [place] [address] Business (1) In 3 days 05/17/2024 DIAGNOSIS: Chronic back pain; Low back pain; Lumbar radiculopathy; Other chronic painNormal [facility] Sal Medical CenterED Note-Physicianon [id number] Note-PhysicianED Note-Physician Basic Information Time Seen: Manuel Naik PA-C 05/14/2024 09:08 Chief Complaint Patient present wiht lumbar back pain with herniated disc and awaiting pain mangt appt next. pt verbalized this episode started 2 days ago. denies any bowel or bladder issure and no new injuy. pt took motrin 800 mg at 6am today History of Present Illness Patient is a 49-year-old female that presents today for evaluation of her lower back pain. Patient has been seen here in the emergency department multiple times for similar complaints and has chronicpain in her back. She follows with [facility] spine surgery for her lower back pain. She is awaiting to see pain management in the next couple of weeks due to the chronicity of the complaints. Patient states that the symptoms started a couple of days ago with increased lower back pain with intermittent radicular symptoms in bilateral lower extremities. At baseline when she sits still there is only pain in the back. Denies any loss of bowel or bladder control, lower extremity weakness, or saddle anesthesia. Per our notes she had similar complaints on her visit on 04/28/24 here in the ED. Review of Systems No other aggravating or relieving factors no other associated symptoms no other prior treatments orcomplaints. Family: Reviewed and noncontributory Social: lives at home Review of systems negative unless otherwise specified in the HPI. Physical Exam Vitals & Measurements T: 36.2 ???C(Oral) HR: 85(Peripheral) RR: 18 BP: 156/94 SpO2: 100% HT: 160 cm WT: 122.1 kg BMI: 47.7 Vital Signs reviewed and noted. General: Alert, no acute distress, patient resting comfortably Skin: warm, intact, no pallor noted Head: Normocephalic, atraumatic Eye: Normal conjunctiva Cardiac: Normal peripheral perfusion Respiratory: No acute distress Musculoskeletal: No deformity, full ROM. Lumbar spine: Mild to moderate tenderness to palpation to the distal lumbar spine. Negative straight leg raise. No step-off or crepitus appreciated. Intact strength and sensation to bilateral lower extremities. DPP 2+ bilaterally. Neurological: alert and oriented, normal sensory and motor observed. Psychiatric: Cooperative Medical Decision Making Patient is a 49-year-old female presents today for evaluation of her lower back pain. She has been seen here in the emergency department multiple times with similar complaints for her chronic pain inher back. Was just seen here on 04/28/2024 for back pain and was offered all medication except narcotics and the patient got angry and left prior to being fully discharged. She presents with similar symptoms today. She is awaiting to see pain management due to the chronicity of her complaints. Deniesany signs or symptoms concerning for cauda equina syndrome. On exam the patient is afebrile nontoxic-appearing. She does have mild to moderate tenderness palpation to the distal lumbar spine. Negative straight leg raise. Intact strength and sensation to bilateral lower extremities. DPP 2+ bilaterally. I had an extensive discussion with the patient regarding management options moving forward. Patient's OARRS report is 720 reviewed by myself. It does appear that she got angry at her last visit due to not being given narcotics. I offered the patient a range of medications including anti-inflammatories, steroids, muscle relaxers to help treat her acute flareup of her chronic pain but the patient was angry with this and did not want any of these. She states that I have all of that at home I do not want any of those. I discussed with the patient that we do not treat chronic pain here in theED. She would benefit from seeing pain management so I provided her with their contact information.Patient was very upset with this and wanted to be discharged home with no further intervention. Return to ED precautions were reviewed with the patient at length. Assessment/Plan Chronic back pain (M54.9: Dorsalgia, unspecified) Low back pain (M54.50: Low back pain, unspecified) Lumbar radiculopathy (M54.16: Radiculopathy, lumbar region) Other chronic pain (G89.29: Other chronic pain) Disposition Plan Patient Discharge Condition Stable Discharge Disposition Home Discharge Prescription List Prescriptions No active prescription medications Follow-up With When Contact Information [facility] In 3 days 05/17/[address] [place] [phone] Business (1) Additional Instructions: MARLEE FITZPATRICK In 3 days 05/17/2024 EST [address] [place] [address]- Business (1) Additional Instructions: Patient Education Chronic Back Pain Attestation Patient seen and evaluated by the physician construction assistant. Attending physician was present in the emergency department and supervised care. This visit was performed by both the physician and an APC. I performed all aspects of the MDM as documented. This report was transcribed using voice recognition soft (more content not included)...Newark HospitalComment on above:Result Comment: Electronically Signed By: Manuel Naik PA-C\.br\Date and Time Signed: 05/14/2508:49 EST\.br\Electronically Co-Signed By: Balbina Bryant M.D.\.br\Date and Time Co-Signed: 05/14/24 19:26 ESTED Patient Summaryon 05-14-2024 ED Patient SummaryED Patient Summary [address] [address] Patient Discharge Instructions Person Information Name: JERAD TRACY Age: 49 Years Arrival Date: 05/14/2024 09:03:16 Discharge Diagnosis: Chronic back pain; Low back pain; Lumbar radiculopathy; Other chronic pain Primary Care Physician: NONE, XXXX Provider Information Primary Provider: Balbina Bryant M.D. Advanced Dietetic Intern:Manuel Naik PA-C The exam and treatment you received in the Emergency Department were for an urgent problem and are not intended as complete care. It is important that you follow up with a doctor, nurse practitioner,or physician???s construction assistant for ongoing care. If your symptoms become worse or you do not improve asexpected and you are unable to reach your usual health care provider, you should return to the Emergency Department. We are available 24 hours a day. JERAD TRACY has been given the following list of patient education materials, prescriptions andfollow-up instructions: Follow-up Instructions: With: Address: When: [facility] [place] [address] [phone] Business (1) In 3 days 05/17/2024 With: Address: When: MARLEE FITZPATRICK [address] [place] [phone] [employer] (1) In 3 days 05/17/2024 In the event that this physician does not participate in your insurance network, please consult with your insurance company to find a nearby participating provider. Patient Education Materials: Chronic Back Pain A MESSAGE TO ALL PATIENTS REGARDING OPIOIDS PRESCRIPTION OPIOIDS: WHAT YOU NEED TO KNOW Prescription opioids can be used to help relieve kzcuifbm-vj-bxwzyf pain and are often prescribed following a [...] guidance from the Food and Drug Administration (www.fda.gov/Drugs/ResourcesForYou). ??? Visit www (more content not included)...NormalOhiohealth Berger HospitalESR Serafin method (Bld) [Velocity]on [id number] (Bld) [Velocity]51 mm/hHigh0 - 20 mm/Holzer HospitalInterpretation and review of laboratory resultsAbnormalUniShelby Memorial HospitalUnWood County HospitalESR (Bld) [Velocity]51 mm/hHigh0-20UnBarnesville HospitalComment on above:Performed By: #### 15897-7 #### SANTOSH BAI ([id number]) [facility] ([facility]) [facility] [place], [place] [address]Artrokx function 1999 panelon [id number] BCP dye [Mass/Vol]4 g/dL3.4 - 5.0 g/dLJoint Township District Memorial HospitalALP [Catalytic activity/Vol]101 U/L33 - 110 U/LUnWood County HospitalALT With P-5'-P [Catalytic activity/Vol]19 U/L7 - 45 U/[facility] HospitalComment on above:Patients treated with Sulfasalazine may generate falsely decreased results for ALT.AST With P-5'-P [Catalytic activity/Vol]20 U/L9 - 39 U/L [facility] District Memorial HospitalCommclaren northern [place] on above:MILD HEMOLYSIS DETECTED. The result may be falsely elevated due to hemolysis or other interferents.Clinical correlation is recommended. Repeat testing may be considered.Bilirubin [Mass/Vol]0.3 mg/dL0.0 - 1.2 mg/dLUnWood County Hospital Bilirubin.direct [Mass/Vol]0 mg/dL0.0 - 0.3 mg/dLUnWood County HospitalCommclaren northern [place] on above:MILD HEMOLYSIS DETECTED. The result may be falsely decreased due to hemolysis or other interferents. Clinical correlation is recommended. Repeat testing may be considered.Interpretation and review of laboratory resultsNormalUniShelby Memorial HospitalProtein [Mass/Vol]7.2 g/dL6.4 - 8.2 g/dLUnWood County HospitalUnWood County HospitalAlbumin BCP dye [Mass/Vol]4.0 g/dLNormal3.4-5.0UnBarnesville HospitalComment on above:Performed By: #### 27601-4 #### SANTOSH BAI ([id number]) [facility] ([facility]) [address] [place] [address]UDR [Catalytic activity/Vol]101 U/ZAwowdg91-708WbdlyfipnzBarnesville HospitalComment on above:Performed By: #### 80053-9 #### SANTOSH BAI ([id number]) [facility] ([facility]) [address] [place] [address]MGB With P-5'-P [Catalytic activity/Vol]19 U/LNormal7-45 [facility]acon[facility] HospitalComment on above:Result Comment: Patients treated with Sulfasalazine may generate falsely decreased results for ALT.Performed By: #### 84933-4 #### SANTOSH BAI ([id number]) [facility] ([facility]) [address] [place], [place] [address]LWH With P-5'-P [Catalytic activity/Vol]20 U/LNormal9-39 [facility]acon[facility] HospitalComment on above:Result Comment: MILD HEMOLYSIS DETECTED. The result may be falsely elevated due to hemolysis or other interferents. Clinical correlation is recommended. Repeat testing may be considered.Performed By: #### 50723-6 #### SANTOSH BAI ([id number]) [facility] ([facility]) [address] [place], [place] [address]Jgzdczkej [Mass/Vol]0.3 mg/dLNormal0.0-1.2UnBarnesville HospitalComment on above:Performed By: #### 57088-9 #### SANTOSH BAI ([id number]) [facility] ([facility]) [address] [place], [place] [address]Ytlggvgwc.direct [Mass/Vol]0.0 mg/dLNormal0.0-0.3UnBarnesville HospitalComment on above:Result Comment: MILD HEMOLYSIS DETECTED. The result may be falsely decreased due to hemolysis or other interferents. Clinical correlation is recommended. Repeat testing may be considered.Performed By: #### 08437-4 #### SANTOSH BAI ([id number]) [facility] ([facility]) [address] [place], [place] [address]Okfwcea [Mass/Vol]7.2 g/dLNormal6.4-8.2UnBarnesville HospitalComment on above:Performed By: #### 94130-1 #### SANTOSH BAI ([id number]) [facility] ([facility]) [address] [place], [place] [address]Yd Panel Informationon [id number] Township District Memorial HospitalCB W Auto Differential panel (Bld)on [id number] (Bld) [#/Vol] 0.01 10*3/uLUnWood County HospitalBasophils/100 WBC (Bld)0.2 %0.0 - 2.0 %[facility] Memorial HospitalEosinophils (Bld) [#/Vol]0.14 10*3/uL [facility] HospitalEosinophils/100 WBC (Bld)3.2 %0.0 - 6.0 % [facility] Memorial HospitalErythrocyte distribution width (RBC) [Ratio] 13.6 %11.5 - 14.5 %[facility] Memorial HospitalHematocrit (Bld) [Volume fraction]42 %36.0 - 46.0 %[facility] Memorial HospitalHemoglobin (Bld) [Mass/Vol]13.5 g/dL12.0 - 16.0 g/dLUnWood County HospitalImchristian hospital granulocytes (Bld) [#/Vol]0.01 10*3/[facility] granulocytes/100 WBC (Bld)0.2 %0.0 - 0.9 %[facility] Comment on above:Immature Granulocyte Count (IG) includes promyelocytes, myelocytes and metamyelocytes but does not include bands. Percent differential counts (%) should be interpreted in the context of the absolute cell counts (cells/UL).Lymphocytes (Bld) [#/Vol]1.81 10*3/[facility]riners HospitalLymphocytes/100 WBC (Bld)40.8 %13.0 - 44.0 %[facility], Edwin ShawH (RBC) [Entitic mass]29.2 pg26.0 - 34.[address] Joseph Warren HospitalHC (RBC) [Mass/Vol]32.1 g/dL32.0 - 36.0 g/dLSelect Medical Cleveland Clinic Rehabilitation Hospital, Edwin ShawV (RBC) [Entitic vol]91 fL80 - 100 fLUniShelby Memorial HospitalMonocytes (Bld) [#/Vol]0.36 10*3/[facility] Monocytes/100 WBC (Bld)8.1 %2.0 - 10.0 %[facility] Neutrophils (Bld) [#/Vol]2.11 10*3/[facility]riners HospitalComment on above:Percent differential counts (%) should be interpreted in the context of the absolute cell counts (cells/uL).Neutrophils/100 WBC (Bld)47.5 %40.0 - 80.0 % [facility] HospitalNucleated RBC/100 WBC (Bld) [Ratio]0 % [facility] Memorial HospitalPlatelets (Bld) [#/Vol]286 10*3/[facility]riners HospitalRBC (Bld) [#/Vol]4.62 10*6/[facility]riners HospitalWBC (Bld) [#/Vol]4.4 10*3/[facility]riners HospitalUnWood County HospitalBasophils (Bld) [#/Vol]0.01 x10*3/uLNormal0.00-0.10 [facility] HospitalComment on above:Performed By: #### 4537-7 #### JOLENE Cantu ([id number]) [facility] ([facility]) [address] [place], [place] [address]Vjxsvivsc/100 WBC (Bld)0.2 %Normal0.0-2.0UnSamaritan North Health CenterComment on above:Performed By: #### 4537-7 #### JOLENE Cantu ([id number]) [facility] ([facility]) [address] [place] [address]Gmzzsppthem (Bld) [#/Vol]0.14 x10*3/uLNormal0.00-0.70 [facility] Memorial HospitalComment on above:Performed By: #### 4537-7 #### JOLENE Cantu ([id number]) [facility] ([facility]) [address] [place], [place] [address]Ilsmffnwucz/100 WBC (Bld)3.2 %Normal0.0-6.0UnSamaritan North Health CenterComment on above:Performed By: #### 4537-7 #### JOLENE Cantu ([id number]) [facility] ([facility]) [address] [place] [address]Tfvdqfcqexu distribution width (RBC) [Ratio]13.6 %Normal 11.5-14.5[facility] Memorial HospitalComment on above:Performed By: #### 4537-7 #### JOLENE Cantu ([id number]) [facility] ([facility]) [address] [place], [place] [address]Kuedyfnpyd (Bld) [Volume fraction]42.0 %Qahmje76.0-46.0 [facility] Memorial HospitalComment on above:Performed By: #### 4537-7 #### JOLENE Cantu (86881) [facility] ([facility]) [address] [place], [place] [address]Rrzenyrlyn (Bld) [Mass/Vol]13.5 g/fYCfpujt52.0-16.0UnSamaritan North Health CenterComment on above:Performed By: #### 4537-7 #### JOLENE Cantu (76655) [facility] ([facility]) [address] [place] [address]Cevqrzxb granulocytes (Bld) [#/Vol]0.01 x10*3/uLNormal 0.00-0.70UnSamaritan North Health CenterComment on above:Performed By: #### 4537-7 #### JOLENE Cantu (69481) [facility] ([facility]) [address] [place] [address]Latsidbv granulocytes/100 WBC (Bld)0.2 %Normal0.0-0.9 [facility] Memorial HospitalComment on above:Result Comment: Immature Granulocyte Count (IG) includes promyelocytes, myelocytes and metamyelocytes but does not include bands. Percent differential counts (%) should be interpreted in the context of the absolute cell counts (cells/UL). Performed By: #### 4537-7 #### JOLENE Cantu ([id number]) [facility] ([facility]) [address] [place], [place] [address]Rmxykhdslyw (Bld) [#/Vol]1.81 x10*3/uLNormal1.20-4.80 [facility] Memorial HospitalComment on above:Performed By: #### 4537-7 #### JOLENE CASTROER L ([id number]) [facility] ([facility]) [address] [place], [place] [address]Ivtykjtzpoi/100 WBC (Bld)40.8 %Xctgsu62.0-44.0[facility] Memorial HospitalComment on above:Performed By: #### 4537-7 #### JOLENE Cantu ([id number]) [facility] ([facility]) [address] [place], [place] [address]HPD (RBC) [Entitic mass]29.2 qiMzuqea09.0-34.0UnSamaritan North Health CenterComment on above:Performed By: #### 4537-7 #### JOLENE Cantu (75979) [facility] ([facility]) [address] [place], [place] [address]TBHU (RBC) [Mass/Vol]32.1 g/wRHlgjuw18.0-36.0UnSamaritan North Health CenterComment on above:Performed By: #### 4537-7 #### JOLENE Cantu (03457) [facility] ([facility]) [address] [place] [address]YLX (RBC) [Entitic vol]91 uOXndzfs46-443HtcvktcjwiMemorial Health System Marietta Memorial HospitalComment on above:Performed By: #### 4537-7 #### JOLENE Catnu (54825) [facility] ([facility]) [address] [place] [address]Kvoaiaczv (Bld) [#/Vol]0.36 x10*3/uLNormal0.10-1.00UnSamaritan North Health CenterComment on above:Performed By: #### 4537-7 #### JOLENE Cantu ([id number]) [facility] ([facility]) [address] [place], [place] [address]Loncksuoj/100 WBC (Bld)8.1 %Normal2.0-10.0[facility] Memorial HospitalComment on above:Performed By: #### 4537-7 #### JOLENE Cantu ([id number]) [facility] ([facility]) [address] [place], [place] [address]Wycrnljmfom (Bld) [#/Vol]2.11 x10*3/uLNormal1.20-7.70 [facility] Memorial HospitalComment on above:Result Comment: Percent differential counts (%) should be interpreted in the context of the absolute cell counts (cells/uL).Performed By: #### 4537-7 #### JOLENE Cantu (52852) [facility] ([facility]) [address] [place], [place] [address]Mrqrmeudvlq/100 WBC (Bld)47.5 %Vyrdeq36.0-80.0UnSamaritan North Health CenterComment on above:Performed By: #### 4537-7 #### JOLENE Cantu (23123) [facility] ([facility]) [address] [place], [place] [address]Togupktnc RBC/100 WBC (Bld) [Ratio]0.0 /100 WBCsNormal0.0-0.0 [facility] Memorial HospitalComment on above:Performed By: #### 4537-7 #### JOLENE Cantu ([id number]) [facility] ([facility]) [address] [place], [place] [address]Dmqrdgrfw (Bld) [#/Vol]286 x10*3/qBBtdccs338-356TvsnmpnxwfSamaritan North Health CenterComment on above:Performed By: #### 4537-7 #### JOLENE Cantu (59121) [facility] ([facility]) [address] [place], [place] [address]IIC (Bld) [#/Vol]4.62 x10*6/uLNormal4.00-5.20UnSamaritan North Health CenterComment on above:Performed By: #### 4537-7 #### JOLENE Cantu (45436) [facility] ([facility]) [address] [place], [place] [address]PKW (Bld) [#/Vol]4.4 x10*3/uLNormal4.4-11.3[facility] Memorial HospitalComment on above:Performed By: #### 4537-7 #### JOLENE Cantu ([id number]) [facility] ([facility]) [address] [place], [place] [address]Rhuudoadjzg [id number] [Mass/Vol]2.16 mg/dL1.60 - 2.40 mg/dLUnWood County HospitalMagnesium [Mass/Vol]2.16 mg/dLNormal 1.60-2.40UnSamaritan North Health CenterComment on above:Performed By: #### 4537-7 #### JOLENE Cantu ([id number]) [facility] ([facility]) [address] [place], [place] [address]Uf Panel Informationon [id number] and review of laboratory resultsNoMercy Health St. Anne HospitalRenal function 2000 panelon 36-77-8305Dvwppwi BCP dye [Mass/Vol]3.8 g/dL3.4 - 5.0 g/dLUnWood County HospitalAnion gap [Moles/Vol]12 mmol/L10 - 20 mmol/[facility] HospitalCalcium [Mass/Vol]8.9 mg/dL 8.6 - 10.6 mg/dLUnWood County HospitalChloride [Moles/Vol]104 mmol/L 98 - 107 mmol/[facility] HospitalCO2 [Moles/Vol]28 mmol/L21 - 32 mmol/[facility] HospitalCreatinine [Mass/Vol]0.75 mg/dL0.50 - 1.05 mg/dLUnWood County HospitaleGFR- PINFUniShelby Memorial HospitalComment on above:Calculations of estimated GFR are performed using the 2020 CKD-EPI Study Refit equation without therace variable for the IDMS- Traceable creatinine methods. https://jasn.asnjournals.org/content//ASN.9269259405 Glucose [Mass/Vol]95 mg/dL74 - 99 mg/dLUnWood County Hospital Phosphate [Mass/Vol]4.4 mg/dL2.5 - 4.9 mg/dLUnWood County Hospital Comment on above:The performance characteristics of phosphorus testing in heparinized plasma have been validated by the individual laboratory site where testing is performed. Testing on heparinized plasma is not approved by the FDA; however, such approval is not necessary.Potassium [Moles/Vol]3.8 mmol/L3.5 - 5.3 mmol/[facility] HospitalSodium [Moles/Vol]140 mmol/L136 - 145 mmol/[facility] HospitalUrea nitrogen [Mass/Vol]19 mg/dL6 - 23 mg/dLJoint Township District Memorial HospitalAlbumin BCP dye [Mass/Vol]3.8 g/dL Normal3.4-5.0[facility] Memorial HospitalComment on above: Performed By: #### 4537-7 #### JOLENE Cantu ([id number]) [facility] ([facility]) [address] [place] [address] 867[address]Vqjiw gap [Moles/Vol]12 mmol/IOxhwck95-55PjvgdmnegcSamaritan North Health CenterComment on above:Performed By: #### 4537-7 #### JOLENE Cantu ([id number]) [facility] ([facility]) [address] [place] [address] 023[address]Jtuuxkz [Mass/Vol]8.9 mg/dLNormal8.6-10.6[facility] Memorial HospitalComment on above:Performed By: #### 4537-7 #### JOLENE Cantu ([id number]) [facility] ([facility]) [address] [place] [address] 15047Bbgmxmgd [Moles/Vol]104 mmol/FUgkcwj55-859CnxqpzrwbmSamaritan North Health CenterComment on above:Performed By: #### 4537-7 #### JOLENE Cantu ([id number]) [facility] ([facility]) [address] [place] [address] 95887EG1 [Moles/Vol]28 mmol/FBsufhg82-32QthwlambfjSamaritan North Health CenterComment on above:Performed By: #### 4537-7 #### JOLENE Cantu ([id number]) [facility] ([facility]) [address] [place] [address] 87886Xgwjsmvedr [Mass/Vol]0.75 mg/dLNormal0.50-1.05UnSamaritan North Health CenterComment on above:Performed By: #### 4537-7 #### JOLENE Cantu ([id number]) [facility] ([facility]) [address] [place] [address] 50848BEM/1.73 sq M.predicted MDRD (S/P/Bld) [Vol rate/Area] mL/min/{1.73_m2}Normal>60UnSamaritan North Health CenterComment on above:Result Comment: Calculations of estimated GFR are performed using the 2020 CKD-EPI Study Refit equation without the race variable for the IDMS-Traceable creatinine methods. https://jasn.asnjournals.org/content/early/ASN.2235332484Imjzxyrde By: #### 4537-7 #### JOLENE Cantu ([id number]) [facility] ([facility]) [address] [place] [address] 70759Kjwnspr [Mass/Vol]95 mg/kPPtunlq57-39HqlcmcrqzoSamaritan North Health CenterComment on above:Performed By: #### 4537-7 #### JOLENE Cantu ([id number]) [facility] ([facility]) [address] [place] [address] 41030Hcbvvdjsy [Mass/Vol]4.4 mg/dLNormal2.5-4.9UnSamaritan North Health CenterComment on above:Result Comment: The performance characteristics of phosphorus testing in heparinized plasma have bee n validated by the individual laboratory site where testing is performed. Testing on heparinizedplasma is not approved by the FDA; however, such approval is not necessary.Performed By: #### 4537-7 #### JOLENE Cantu ([id number]) [facility] ([facility]) [address] [place], [place] [address]Nvxowfhnm [Moles/Vol]3.8 mmol/LNormal3.5-5.3UnSamaritan North Health CenterComment on above:Performed By: #### 4537-7 #### JOLENE Cantu ([id number]) [facility] ([facility]) [address] [place], [place] [address]Spckyo [Moles/Vol]140 mmol/PHbwwbg159-434GpgsuqlsltSamaritan North Health CenterComment on above:Performed By: #### 4537-7 #### JOLENE Cantu ([id number]) [facility] ([facility]) [address] [place], [place] [address]Lgpt nitrogen [Mass/Vol]19 mg/dLNormal6-23UnSamaritan North Health CenterComment on above:Performed By: #### 4537-7 #### JOLENE Cantu ([id number]) [facility] ([facility]) [address] [place], [place] [address]C-flxujifm proteinon [id number] [Mass/Vol]0.26 mg/dLNINF - 1.00 mg/dLJoint Township District Memorial HospitalCRP [Mass/Vol]on 05-01-2024 Interpretation and review of laboratory resultsNoMercy Health St. Anne HospitalESR Westergren method (Bld) [Velocity] on 13-60-2700NZY (Bld) [Velocity]25 mm/hHigh0 - 20 mm/[facility] HospitalInterpretation and review of laboratory resultsAbnoMercy Health St. Anne HospitalMagnesiumon 05-01-2024 Magnesium [Mass/Vol]2.18 mg/dL1.60 - 2.40 mg/dLUnWood County Hospital Comment on above:MILD HEMOLYSIS DETECTED. The result may be falsely elevated due to hemolysis or other interferents.Clinical correlation is recommended. Repeat testing may be considered.No Panel Informationon [id number] and review of laboratory resultsNoMercy Health St. Anne HospitalPhosphoruson [id number] [Mass/Vol]4 mg/dL2.5 - 4.9 mg/dLJoint Township District Memorial HospitalComment on above:MILD HEMOLYSIS DETECTED. The result may be falsely elevated due to hemolysis or other interferents.Clinical correlation is recommended. Repeat testing may be considered. The performance characteristics of phosphorus testing in heparinized plasma have been validated by the individual laboratory site where testing is performed. Testing on heparinized plasma is not approved by the FDA; however, such approval is not necessary. Blood type and Indirect antibody screen panel (Bld)on [id number] group Nom (Bld)OUniShelby Memorial HospitalBlood group antibody screen QlNegative [facility] Ag Ql (Bld)PositiveLakeHealth Beachwood Medical CenterABO group Nom (Bld)ONormalMemorial Health System Marietta Memorial HospitalComment on above:Performed By: #### 00223-8 #### JOLENE Cantu ([id number]) [facility] ([facility]) [address] [place], [place] [address]Blood group antibody screen QlNegativeGalion HospitalComment on above:Performed By: #### 38111-1 #### JOLENE Cantu ([id number]) [facility] ([facility]) [address] [place], [place] [address]D Ag Ql (Bld)PositiveNoUpper Valley Medical CenterComment on above:Performed By: #### 71276-0 #### JOLENE Cantu ([id number]) [facility] ([facility]) [address] [place], [place] [address]C reactive proteinon [id number] [Mass/Vol]0.26 mg/dLNormal <1.00[facility] Memorial HospitalComment on above:Performed By: #### 05748-4 #### JOLENE Cantu ([id number]) [facility] ([facility]) [address] [place], [place] [address]CBC W Auto Differential panel (Bld)on [id number] (Bld) [#/Vol]0.02 10*3/[facility] HospitalBasophils/100 WBC (Bld)0.3 %0.0 - 2.0 %[facility] Memorial HospitalEosinophils (Bld) [#/Vol] 0.1 10*3/[facility] HospitalEosinophils/100 WBC (Bld)1.3 %0.0 - 6.0 %[facility] Memorial HospitalErythrocyte distribution width (RBC) [Ratio]13.4 %11.5 - 14.5 %[facility] Memorial HospitalHematocrit (Bld) [Volume fraction]42.1 %36.0 - 46.0 %[facility] Memorial HospitalHemoglobin (Bld) [Mass/Vol]14.3 g/dL12.0 - 16.0 g/dLUnWood County Hospital Immature granulocytes (Bld) [#/Vol]0.01 10*3/[facility] Immature granulocytes/100 WBC (Bld)0.1 %0.0 - 0.9 %[facility] on above:Immature Granulocyte Count (IG) includes promyelocytes, myelocytes and metamyelocytes but does not include bands. Percent differential counts (%) should be interpreted in the context of the absolute c ell counts (cells/UL).Lymphocytes (Bld) [#/Vol]3.29 10*3/[facility]riners HospitalLymphocytes/100 WBC (Bld)42.6 %13.0 - 44.0 %[facility] ShawH (RBC) [Entitic mass]29.4 pg26.0 - 34.[address] Joseph Warren HospitalHC (RBC) [Mass/Vol]34 g/dL32.0 - 36.0 g/dLSelect Medical [facility] Clinic Rehabilitation Hospital, Edwin ShawV (RBC) [Entitic vol]87 fL80 - 100 fLUniversSelect Specialty Hospital - EvansvilleMonocytes (Bld) [#/Vol]0.55 10*3/[facility] Monocytes/100 WBC (Bld)7.1 %2.0 - 10.0 %[facility] Neutrophils (Bld) [#/Vol]3.75 10*3/[facility] on above:Percent differential counts (%) should be interpreted in the context of the absolute cell counts (cells/uL).Neutrophils/100 WBC (Bld)48.6 %40.0 - 80.0 % [facility] HospitalNucleated RBC/100 WBC (Bld) [Ratio]0 % [facility] Memorial HospitalPlatelets (Bld) [#/Vol]360 10*3/[facility] HospitalRBC (Bld) [#/Vol]4.86 10*6/[facility] HospitalWBC (Bld) [#/Vol]7.7 10*3/[facility] HospitalUnWood County HospitalBasophils (Bld) [#/Vol]0.02 x10*3/uLNormal0.00-0.10 [facility] Memorial HospitalComment on above:Performed By: #### 27732-0 #### JOLENE Cantu ([id number]) [facility] ([facility]) [address] [place], [place] [address]Qzxezvcfn/100 WBC (Bld)0.3 %Normal0.0-2.0UnSamaritan North Health CenterComment on above:Performed By: #### 60583-3 #### JOLENE Cantu (51163) [facility] ([facility]) [address] [place] [address] 971[address]Leofxubivrd (Bld) [#/Vol]0.10 x10*3/uLNormal0.00-0.70 [facility] Memorial HospitalComment on above:Performed By: #### 53092-7 #### JOLENE Cantu (58651) [facility] ([facility]) [address] [place] [address] 638[address]Maqhgberyfy/100 WBC (Bld)1.3 %Normal0.0-6.0UnSamaritan North Health CenterComment on above:Performed By: #### 69491-8 #### JOLENE Cantu (70543) [facility] ([facility]) [address] [place] [address] 31481Pectrnnybsq distribution width (RBC) [Ratio]13.4 %Normal 11.5-14.5[facility] Memorial HospitalComment on above:Performed By: #### 37173-7 #### JOLENE Cantu (49096) [facility] ([facility]) [address] [place] [address] 62354Jolpsfydvb (Bld) [Volume fraction]42.1 %Jqumee44.0-46.0 [facility] Memorial HospitalComment on above:Performed By: #### 60244-8 #### JOLENE Cantu (87095) [facility] ([facility]) [address] [place], [place] [address]Lndctoensw (Bld) [Mass/Vol]14.3 g/pJPrxubo76.0-16.0UnSamaritan North Health CenterComment on above:Performed By: #### 11920-9 #### JOLENE Cantu (84216) [facility] ([facility]) [address] [place], [place] [address]Kaemitvl granulocytes (Bld) [#/Vol]0.01 x10*3/uLNormal 0.00-0.70UnSamaritan North Health CenterComment on above:Performed By: #### 65907-3 #### JOLENE Cantu (63550) [facility] ([facility]) [address] [place], [place] [address]Ccjkpvhw granulocytes/100 WBC (Bld)0.1 %Normal0.0-0.9 [facility] Memorial HospitalComment on above:Result Comment: Immature Granulocyte Count (IG) includes promyelocytes, myelocytes and metamyelocytes but does not include bands. Percent differential counts (%) should be interpreted in the context of the absolute cell counts (cells/UL). Performed By: #### 80875-7 #### JOLENE Cantu (04515) [facility] ([facility]) [address] [place], [place] [address]Jacspbnlsib (Bld) [#/Vol]3.29 x10*3/uLNormal1.20-4.80 [facility] Memorial HospitalComment on above:Performed By: #### 04153-4 #### JOLENE Cantu (47874) [facility] ([facility]) [address] [place], [place] [address]Fipxryfmsxg/100 WBC (Bld)42.6 %Qudztd55.0-44.0UnSamaritan North Health CenterComment on above:Performed By: #### 75637-4 #### JOLENE Cantu (59059) [facility] ([facility]) [address] [place], [place] [address]TYR (RBC) [Entitic mass]29.4 mgNhofcr29.0-34.0UnSamaritan North Health CenterComment on above:Performed By: #### 01054-4 #### JOLENE Cantu (62516) [facility] ([facility]) [address] [place] [address] 51965OKWI (RBC) [Mass/Vol]34.0 g/bQBvmyxw63.0-36.0UnSamaritan North Health CenterComment on above:Performed By: #### 14097-4 #### JOLENE Cantu (36645) [facility] ([facility]) [address] [place] [address] 37566YSM (RBC) [Entitic vol]87 hQFdxpxo45-848HubccfdchtSamaritan North Health CenterComment on above:Performed By: #### 31028-1 #### JOLENE Cantu (36893) [facility] ([facility]) [address] [place] [address] 320[address]Objdtjpjh (Bld) [#/Vol]0.55 x10*3/uLNormal0.10-1.00UnSamaritan North Health CenterComment on above:Performed By: #### 47259-3 #### JOLENE Cantu (25392) [facility] ([facility]) [address] [place], [place] [address]Xavffhyix/100 WBC (Bld)7.1 %Normal2.0-10.0[facility] Memorial HospitalComment on above:Performed By: #### 23388-6 #### JOLENE Cantu (25210) [facility] ([facility]) [address] [place] [address] 00824Eokqzqjhnsg (Bld) [#/Vol]3.75 x10*3/uLNormal1.20-7.70 [facility] Memorial HospitalComment on above:Result Comment: Percent differential counts (%) should be interpreted in the context of the absolute cell counts (cells/uL).Performed By: #### 30452-6 #### JOLENE Cantu (28922) [facility] ([facility]) [address] [place] [address] 36[address]Gxhxunrjmtw/100 WBC (Bld)48.6 %Yhpkop66.0-80.0[facility] Memorial HospitalComment on above:Performed By: #### 95204-8 #### JOLENE Cantu (37874) [facility] ([facility]) [address] [place] [address] 616[address]Qwcwjppmo RBC/100 WBC (Bld) [Ratio]0.0 /100 WBCsNormal0.0-0.0 [facility] Memorial HospitalComment on above:Performed By: #### 13497-0 #### JOLENE Cantu ([id number]) [facility] ([facility]) [address] [place] [address] 788[address]Dngviqcmt (Bld) [#/Vol]360 x10*3/sPMuqzyt071-991AeberznfcnSamaritan North Health CenterComment on above:Performed By: #### 65153-6 #### JOLENE Cantu (63013) [facility] ([facility]) [address] [place] [address] 99658BRP (Bld) [#/Vol]4.86 x10*6/uLNormal4.00-5.20UnSamaritan North Health CenterComment on above:Performed By: #### 19162-0 #### JOLENE Cantu (94294) [facility] ([facility]) [address] [place] [address] 856[address]LLB (Bld) [#/Vol]7.7 x10*3/uLNormal4.4-11.3[facility] Memorial HospitalComment on above:Performed By: #### 68155-6 #### JOLENE Cantu (00947) [facility] ([facility]) [address] [place] [address] 35272Skvqvhlulszsg metabolic 2000 panelon 39-90-1525Jxcfdle BCP dye [Mass/Vol]4.3 g/dL3.4 - 5.0 g/dLUnWood County HospitalALP [Catalytic activity/Vol]102 U/L33 - 110 U/[facility] HospitalALT With P-5'-P [Catalytic activity/Vol]27 U/L7 - 45 U/[place] on above:Patients treated with Sulfasalazine may generate falsely decreased results for ALT.Anion gap [Moles/Vol]13 mmol/L10 - 20 mmol/L [facility] HospitalAST With P-5'-P [Catalytic activity/Vol]36 U/L9 - 39 U/[place] on above:MILD HEMOLYSIS DETECTED. The result may be falsely elevated due to hemolysis or other interferents.Clinical correlation is recommended. Repeat testing may be considered.Bilirubin [Mass/Vol]0.4 mg/dL0.0 - 1.2 mg/dLUnWood County HospitalCalcium [Mass/Vol]9.3 mg/dL8.6 - 10.6 mg/dLUnWood County HospitalChloride [Moles/Vol]106 mmol/L98 - 107 mmol/[facility] HospitalCO2 [Moles/Vol]26 mmol/L21 - 32 mmol/[facility] Creatinine [Mass/Vol]0.71 mg/dL0.50 - 1.05 mg/dLUnWood County HospitaleGFR- PINFUniSuburban Community Hospital & [facility] on above: Calculations of estimated GFR are performed using the 2020 CKD-EPI Study Refit equation without therace variable for the IDMS-Traceable creatinine methods. https://jasn.asnjournals.org/content//ASN.7366009772 Glucose [Mass/Vol]97 mg/dL74 - 99 mg/dLUnWood County Hospital Interpretation and review of laboratory resultsNormSouthwest General Health CenterPotassium [Moles/Vol]5.3 mmol/L3.5 - 5.3 mmol/[place] on above:MILD HEMOLYSIS DETECTED. The result may be falsely elevated due to hemolysis or other interferents.Clinical correlation is recommended. Repeat testing may be considered.Protein [Mass/Vol]7.7 g/dL6.4 - 8.2 g/dLUnWood County HospitalSodium [Moles/Vol]140 mmol/L136 - 145 mmol/LUnWood County HospitalUrea nitrogen [Mass/Vol]15 mg/dL6 - 23 mg/dLUnWood County HospitalUnWood County HospitalAlbumin BCP dye [Mass/Vol]4.3 g/dLNormal3.4-5.0UnSamaritan North Health CenterComment on above:Performed By: #### 31795-6 #### JOLENE Cantu ([id number]) [facility] ([facility]) [address] [place] [address] 83357EOS [Catalytic activity/Vol]102 U/AMlhvje39-431TexbnzodvySamaritan North Health CenterComment on above:Performed By: #### 01632-6 #### JOLENE Cantu (85354) [facility] ([facility]) [address] [place] [address] 33903IRG With P-5'-P [Catalytic activity/Vol]27 U/LNormal7-45 [facility] Memorial HospitalComment on above:Result Comment: Patients treated with Sulfasalazine may generate falsely decreased results for ALT.Performed By: #### 35596-7 #### JOLENE Cantu (17402) [facility] ([facility]) [address] [place] [address] 37058Qtzdi gap [Moles/Vol]13 mmol/ESysgry68-80QgetkcizvdSamaritan North Health CenterComment on above:Performed By: #### 81995-2 #### JOLENE Cantu (07413) [facility] ([facility]) [address] [place] [address] 00716YZU With P-5'-P [Catalytic activity/Vol]36 U/LNormal9-39 [facility] Memorial HospitalComment on above:Result Comment: MILD HEMOLYSIS DETECTED. The result may be falsely elevated due to hemolysis or other interferents. Clinical correlation is recommended. Repeat testing may be considered.Performed By: #### 71091-8 #### JOLENE Cantu (12472) [facility] ([facility]) [address] [place], [place] [address]Sjbxbjugd [Mass/Vol]0.4 mg/dLNormal0.0-1.2UnSamaritan North Health CenterComment on above:Performed By: #### 62754-2 #### JOLENE Cantu (00213) [facility] ([facility]) [address] [place] [address] 13293Shryjrw [Mass/Vol]9.3 mg/dLNormal8.6-10.6UnSamaritan North Health CenterComment on above:Performed By: #### 57660-9 #### JOLENE Cantu (63117) [facility] ([facility]) [address] [place] [address] 44797Xlafrijg [Moles/Vol]106 mmol/BEwrtna42-448IrixgzwaxwSamaritan North Health CenterComment on above:Performed By: #### 54363-0 #### JOLENE Cantu (15092) [facility] ([facility]) [address] [place] [address] 81322IJ3 [Moles/Vol]26 mmol/ROwbgta90-42VnuymbkqutSamaritan North Health CenterComment on above:Performed By: #### 00269-3 #### JOLENE Cantu (98995) [facility] ([facility]) [address] [place] [address] 70986Lfnetfzohg [Mass/Vol]0.71 mg/dLNormal0.50-1.05UnSamaritan North Health CenterComment on above:Performed By: #### 58124-7 #### JOLENE Cantu (78710) [facility] ([facility]) [address] [place] [address] 47279HAS/1.73 sq M.predicted MDRD (S/P/Bld) [Vol rate/Area] mL/min/{1.73_m2}Normal>60UnSamaritan North Health CenterComment on above:Result Comment: Calculations of estimated GFR are performed using the 2020 CKD-EPI Study Refit equation without the race variable for the IDMS-Traceable creatinine methods. https://jasn.asnjournals.org/content//ASN.6106590546Psputwoak By: #### 19482-1 #### JOLENE Cantu (05591) [facility] ([facility]) [address] [place], [place] [address]Vjqrflw [Mass/Vol]97 mg/zDHejyjb18-50YikkmqlbrwSamaritan North Health CenterComment on above:Performed By: #### 79780-9 #### JOLENE RONQUILLO L (13899) [facility] ([facility]) [address] [place] [address] 84202Omahqjgtx [Moles/Vol]5.3 mmol/LNormal3.5-5.3[facility] Memorial HospitalComment on above:Result Comment: MILD HEMOLYSIS DETECTED. The result may be falsely elevated due to hemolysis or other interferents. Clinical correlation is recommended. Repeat testing may be considered.Performed By: #### 73719-3 #### JOLENE Cantu (82258) [facility] ([facility]) [address] [place] [address] 39038Dvmnapn [Mass/Vol]7.7 g/dLNormal6.4-8.2UnSamaritan North Health CenterComment on above:Performed By: #### 95623-4 #### JOLENE WELSHMOREGINALDO L (52659) [facility] ([facility]) [address] [place] [address] 83869Ybgodk [Moles/Vol]140 mmol/YMafnuy532-542FimzyanghgSamaritan North Health CenterComment on above:Performed By: #### 76626-5 #### JOLENE WELSHMOREGINALDO L ([id number]) [facility] ([facility]) [id number] [place] [address] 92224Fupv nitrogen [Mass/Vol]15 mg/dLNormal6-23UnSamaritan North Health CenterComment on above:Performed By: #### 33969-7 #### JOLENE WELSHMOREGINALDO L ([id number]) [facility] ([facility]) [address] [place], [place] [address]XRO Westergren method (Bld) [Velocity]on 74-35-3046YHI (Bld) [Velocity]25 mm/hHigh0-20[facility] HospitalComment on above:Performed By: #### 58251-0 #### JOLENE Cantu ([id number]) [facility] ([facility]) [address] [place] [address] 33286Fehlqqwnxky 02-10-6430Qmcwzqpsr [Mass/Vol]2.18 mg/dLNormal 1.60-2.40Memorial [facility] HospitalComment on above:Result Comment: MILD HEMOLYSIS DETECTED. The result may be falsely elevated due to hemolysis or other interferents. Clinical correlation is recommended. Repeat testing may be considered.Performed By: #### [id number] #### JOLENE Cantu ([id number]) [facility] ([facility]) [address] [place] [address] [id number] and aPTT panel Coag (PPP)on [id number] Coag (PPP) [Time]31 [facility] CenterINR Coag (PPP) [Relative time]1 {INR} 0.9 - 1.1[facility] Memorial HospitalInterpretation and review of laboratory resultsNormalUniShelby Memorial HospitalPT Coag (PPP) [Time] 11.6 [facility] Medical CenterThe APTT is no longer used for monitoring Unfractionated Heparin Therapy. For monitoring Heparin Therapy, use the Heparin Assay.[facility] HospitalUnWood County HospitalaPTT Coag (PPP) [Time]31 tBnowqw40-55WdsdcmxkshMemorial [facility] Comment on above:Order Comment: The APTT is no longer used for monitoring Unfractionated Heparin Therapy. For monitoring Heparin Therapy, use the Heparin Assay.Performed By: #### [id number] #### JOLENE Cantu ([id number]) [facility] ([facility]) [id number] [place] [address] [id number] Coag (PPP) [Relative time]1.6Vhxqcw9.9-1.1[facility]urguia Medical CenterComment on above:Order Comment: The APTT is no longer used for monitoring Unfractionated Heparin Therapy. For monitoring Heparin Therapy, use the Heparin Assay.Performed By: #### [id number] #### JOLENE Cantu ([id number]) [facility] ([facility]) [address] [place] [address] [id number] Coag (PPP) [Time]11.6 sNormal9.8-12.8UnSamaritan North Health CenterComment on above:Order Comment: The APTT is no longer used for monitoring Unfractionated Heparin Therapy. For monitoring Heparin Therapy, use the Heparin Assay.Performed By: #### [id number] #### JOLENE Cantu ([id number]) [facility] ([facility]) [address] [place] [address] 19510Zkphwvymeps [id number] [Mass/Vol]4.0 mg/dLNormal 2.5-4.9UnSamaritan North Health CenterComment on above:Result Comment: MILD HEMOLYSIS DETECTED. The result may be falsely elevated due to hemolysis or other interferents. Clinical correlation is recommended. Repeat testing may be considered. The performance characteristics of phosphorus testing in heparinized plasma have been validated by the individual laboratory site where testing is performed. Testing on heparinized plasma is not approved by the FDA; however, such approval is not necessary.Performed By: #### [id number] #### JOLENE Cantu ([id number]) [facility] ([facility]) [address] [place] [address] [id number] Clinical Summaryon [id number] Clinical SummaryED Clinical Summary [address] [address] ED Clinical Summary Person Information Name: JERAD TRACY [place] Age: 49 Years : 1975 Sex: Female Language: Malagasy PCP: MARLEE FITZPATRICK MD Marital Status: Visit Id: Visit Reason: Back pain; BACK PAIN Speciality: Acuity: 4 Enc Type: Emergency Med Service: Emergency Arrival: 04/28/2024 12:45:58 Discharge: 04/28/2024 13:49:24 LOS: 000 01:04 Checkin: 04/28/2024 12:45:58 Checkout: 04/28/2024 13:49:24 Dispo Type: Home (Routine DC) EVENTS: Event Name Event Status Request Date/Time Start Date/Time Complete Date/Time Arrive Complete 04/28/2024 12:45:58 04/28/2024 12:45:58 04/28/2024 12:45:58 Document Home Meds Request 04/28/2024 12:45:58 Triage Complete 04/28/2024 12:45:58 04/28/2024 12:58:08 04/28/2024 12:58:08 Bed Assign Complete 04/28/2024 12:58:48 04/28/2024 12:58:48 04/28/2024 12:58:48 Dr Exam Complete 04/28/2024 12:58:48 04/28/2024 13:01:46 04/28/2024 13:01:46 RN Exam Request 04/28/2024 12:58:48 Registration Complete 04/28/2024 13:01:46 04/28/2024 13:08:53 04/28/2024 13:08:53 Reg Complete Request 04/28/2024 13:08:53 Reg Bed Request Complete 04/28/2024 13:08:53 04/28/2024 13:08:53 04/28/2024 13:08:53 Dr Exam Complete 04/28/2024 13:11:01 04/28/2024 13:11:01 04/28/2024 13:11:01 Registration Request 04/28/2024 13:11:01 Meds Admin Request 04/28/2024 13:35:08 Discharge Complete 04/28/2024 13:40:04 04/28/2024 13:49:29 04/28/2024 13:49:29 Transfer Complete 04/28/2024 13:49:29 04/28/2024 13:49:29 04/28/2024 13:49:29 ADDRESS: [address] [place] [phone] PHYS DOC NOTES: MEDICAL INFORMATION: Prescriptions Given: Medications to Continue Taking That Have Changed [facility]/pharmacy #[id number], [address] [place], [place] [id number], [phone] START: lidocaine topical (lidocaine Top 5% film Patch) 1 Patches Topical every day. apply 12 hours on and 12 hours off daily. Refills: 0. START: predniSONE (predniSONE 10 mg Tab) 1 Tablets By Mouth As Directed. Take 3 tabs by mouth dailyx3 days, then 2 tabs daily x3 days, then 1 tab daily x3 days.. Refills: 0. Other Medications START: lidocaine topical (lidocaine Top 5% film Patch) 1 Patches Topical every day. apply 12 hours on and 12 hours off daily. Refills: 0. START: lidocaine topical (Lidoderm 5% Patch) 1 Patches Topical every day. apply 12 hours on and 12 hours off daily. Refills: 0. START: lidocaine topical (Lidoderm 5% Patch) 1 Patches Topical every day. apply 12 hours on and 12 hours off daily. Refills: 0. START: predniSONE (predniSONE 10 mg Tab) 1 Tablets By Mouth As Directed. Take 3 tabs by mouth dailyx3 days, then 2 tabs daily x3 days, then 1 tab daily x3 days.. Refills: 0. START: predniSONE (predniSONE 20 mg Tab) 3 By Mouth every day. Refills: 0. Medications to Continue with No Changes Other Medications acetaminophen-oxycodone (Percocet 5 mg-325 mg oral tablet) 1 Tablets By Mouth every 6 hours as needed Pain 8-10. Refills: 0. azithromycin (azithromycin 250 mg Tab) 250 Milligram By Mouth As Directed. Take two tabs by mouth on day one, then one tab daily. Refills: 0. cyclobenzaprine (cyclobenzaprine 10 mg Tab) 1 Tablets By Mouth 3 times a day as needed for spasm. Refills: 0. cyclobenzaprine (cyclobenzaprine 10 mg Tab) 1 Tablets By Mouth 3 times a day as needed for spasm. Refills: 0. cyclobenzaprine (cyclobenzaprine 10 mg Tab) [...] Mouth 3 times a day. Refills: 0. naproxen (Naprosyn 500 mg Tab) 1 Tablets By Mouth 2 times a day as needed for pain. Refills: 0. ondansetron (Zofran 4 mg Tab) 1 Tablets By Mouth every 6 hours as needed Nausea. Take one tab by mouth every six hours as needed for nausea. Refills: 0. PATIENT EDUCATION INFORMATION: Instructions: Acute Back Pain, Adult Follow up: With: Address: When: MARLEE FITZPATRICK [address] [place] [address] [facility] (1[employer] In 3 days 05/01/2024 Comments: Call to schedule a follow-up appointment with your back surgeon and primary care provider for further management of care. Return to the ED with any new or worsening symptoms. DIAGNOSIS: Acute on chronic low back pain; Other chronic painNormalKeller Sal Medical CenterED Note-Nursingon [id number] Note-NursingED Note-Nursing pt leaves without receiving ordered medications and discharge papers. JOON Phelan aware at this time.NormalOn License Of Unc Medical Centersusan Huang Medical CenterED Note-Physicianon [id number] Note-PhysicianED Note-Physician Basic Information Time Seen: Matthew MILES, Zhane Enriquez 04/28/2024 13:01 Chief Complaint lower back pain. sees surgeon next week. wants help with pain History of Present Illness Patient is a 49-year-old female with a history of chronic back pain who presents to the ED with acute on chronic low back pain. Patient states she sees a surgeon next week through [facility] for surgical management. Patient denies any new injury or trauma but states over the past couple of days she has been experiencing increasing pain. Patient has been using naproxen and Flexeril at home with minimal relief in symptoms. She denies saddle anesthesia, change in urination, or loss of bowel control. Review of Systems A 10 point review of systems is negative except as noted above. Medical and Surgical History: Reviewed and noted Social history: Lives at home Family History: Reviewed. Tobacco: Current use Physical Exam Vitals & Measurements T: 36.6 ???C(Oral) HR: 109(Peripheral) RR: 20 BP: 146/95 SpO2: 100% HT: 160 cm WT: 122.1 kg BMI: 47.7 General: The patient appears well and in no apparent distress. Patient is resting comfortably on cart. Skin: Warm, dry, no pallor noted. Head: Normocephalic, atraumatic Neck: No JVD, no midline spinal tenderness to palpation, full range of motion of the cervical spine, mild diffuse right lumbar paraspinal tenderness Eye: PERRLA, EOMI ENT: Moist mucus membranes Cardiovascular: Regular rate normal peripheral perfusion Respiratory: No respiratory distress no accessory muscle use no obvious audible wheezing Musculoskeletal: normal ROM, no deformity, no swelling, full range of motion of the upper and extremities bilaterally, neurovascular intact Neurological: A&O moves all extremities equal strength and symmetry Psychiatric: Cooperative and appropriate Medical Decision Making Patient is a 49-year-old female with a history of chronic back pain who presents to the ED with acute on chronic low back pain. Patient is hemodynamically stable and afebrile. She states she sees a surgeon next week through [facility] for surgical management. Patient has a history of chronic back pain, therefore I discussed that treatment with narcotics is not appropriate. Patient was ordered Toradol and Kenalog however before administration by the nurse, patient became upset that this was not a narcotic and left. Her discharge paperwork was already printed, however she left before thiswas given to her. Prescriptions for prednisone taper and lidocaine patches were sent to her pharmacy to use in addition to the naproxen and Flexeril she has been taking at home already. Patient was advised to return the ED with any new or worsening symptoms. Assessment/Plan Acute on chronic low back pain (M54.50: Low back pain, unspecified) Other chronic pain (G89.29: Other chronic pain) Orders: ketorolac, 30 mg = 1 mL, Injection, IntraMuscular, Once, Stop date 04/28/24 13:34:00 EST, STAT, Start date 04/28/24 13:34:00 EST, 04/28/24 13:34:00 EST lidocaine topical, 1 patch(es), Topical, Daily, 7 patch(es), Refill(s) 0, apply 12 hours on and 12 hours off daily, [facility]/pharmacy #[id number], 160, cm, 04/28/24 12:58:00 EST, Height/Length Dosing, 122.1, kg, 04/28/24 12:58:00 EST, Weight Dosing predniSONE, 10 mg = 1 tab(s), Oral, As Directed, Take 3 tabs by mouth daily x3 days, then 2 tabs daily x3 days, then 1 tab daily x3 days., # 18 tab(s), Refills(s) 0, Pharmacy: [facility]/pharmacy #[id number], 160, cm, 04/28/24 12:58:00 EST, Height/Length Dosing, 122.1, kg, 02... triamcinolone, 40 mg = 1 mL, Susp-Inj, IntraMuscular, Once, Stop date 04/28/24 13:34:00 EST, STAT, Start date 04/28/24 13:34:00 EST, 04/28/24 13:34:00 EST Disposition Plan Patient Discharge Condition stable Discharge Disposition home Discharge Prescription List Prescriptions lidocaine Top 5% film Patch, 1 patch(es), Topical, Daily predniSONE 10 mg Tab, 10 mg= 1 tab(s), Oral, As Directed Follow-up With When Contact Information MARLEE AMARI In 3 days 05/01/[address] [place] [phone] [id number] (1) Additional Instructions: Call to schedule a follow-up appointment with your back surgeon and primary care provider for further management of care. Return to the ED with any new or worsening symptoms. Patient Education Acute Back Pain, Adult Attestation Patient seen and evaluated by the physician construction assistant. Attending physician was present in the emergency department and supervised care. This visit was performed by both the physician and an APC. I performed all aspects of the MDM as documented. This report was transcribed using voice recognition software. Every effort was made to ensure accuracy, however, inadvertently computerized bill recapitulation clerk mistakes may be present. I performed a substantive part of the MDM during the patient???s E/M visit. I personally made or approved the documented management plan and acknowledge its risk of complications. (more content not included)...[facility] HospitalComment on above:Result Comment: Electronically Signed By: Matthew MILES, Zhane Enriquez\.br\Date and Time Signed: 04/28/2512:51 EST\.br\Electronically Co- Signed By: Annette Watkins, Balbina Sparks\.br\Date and Time Co-Signed: 04/28/24 15:55 ESTED Patient Summaryon [id number] Patient SummaryED Patient Summary [place] [id number] Patient Discharge Instructions Person Information Name: JERAD TRACY Age: 49 Years Arrival Date: 04/28/2024 12:45:58 Discharge Diagnosis: Acute on chronic low back pain; Other chronic pain Primary Care Physician: MARLEE FITZPATRICK MD Provider Information Primary Provider: Balbina Bryant M.D. Advanced Dietetic Intern:Zhane Castro PA-C The exam and treatment you received in the Emergency Department were for an urgent problem and are not intended as complete care. It is important that you follow up with a doctor, nurse practitioner,or physician???s construction assistant for ongoing care. If your symptoms become worse or you do not improve asexpected and you are unable to reach your usual health care provider, you should return to the Emergency Department. We are available 24 hours a day. JERAD TRACY has been given the following list of patient education materials, prescriptions andfollow-up instructions: Follow-up Instructions: With: Address: When: DEANCORBINSOPHIE FITZPATRICK [address] [place], [place] [id number] [facility] (1) In 3 days 05/01/2024 Comments: Call to schedule a follow-up appointment with your back surgeon and primary care provider for further management of care. Return to the ED with any new or worsening symptoms. In the event that this physician does not participate in your insurance network, please consult with your insurance company to find a nearby participating provider. Patient Education Materials: Acute Back Pain, Adult A MESSAGE TO ALL PATIENTS REGARDING OPIOIDS PRESCRIPTION OPIOIDS: WHAT YOU NEED TO KNOW Prescription opioids can be used to help relieve pftshqiv-uv-vsedvl pain and are often prescribed following a [...] following guidance from the Food and Drug Administrati (more content not included)...[facility]ark HospitalMR TRANSFER OF OUTSIDE FILMSon [id number] TRANSFER OF OUTSIDE FILMSOutside images for comparison or treatment purposes, not interpreted by Radiologists.[facility] HospitalBacteria identifiedon [id number] identified Cx Nom (U)Test: Urine Culture Specimen Source: Clean Catch/Voided Specimen Type: Urine Specimen Date: 04/24/2024223 Result Date: 04/25/2024730 Result Status: Final result Abnormal: No Resulting Lab: [facility] [id number] [place] [address] CULTURE Growth indicates contamination with mixed bacterial kathia. Repeat culture if clinically indicated.[facility] HospitalComment on above:Performed By: #### [id number] #### JOLENE Cantu ([id number]) [facility] ([facility]) [address] [place], [place] [address]CT Lumbar spine WO contraston [id number] acute fracture or traumatic subluxation. Stable postsurgical changes from left L4 hemilaminectomy. Interval decrease in left paraspinal postsurgical collection likely due to postoperative seroma. Incidental stable left adrenal nodule measures 1.2 x 1.8 cm. Signed by TRUONG Hollis TELERADIOLOGYSTUDY: CT Lumbar Spine without IV Contrast; 04/23/2024 at 11:46 PM INDICATION: Back pain. COMPARISON: CT lumbar spine 03/09/2024, CT lumbar spine 11/13/2023, CT lumbar spine 11/09/2023. ACCESSION NUMBER(S): [id number] ORDERING CLINICIAN: MORA MANDUJANO TECHNIQUE: CT of the lumbar spine was performed without intravenous or intrathecal contrast. Sagittal and coronal reconstructions were generated. Automated mA/kV exposure control was utilized and patient examination was performed in strict accordance with principles of ALARA. FINDINGS: The alignment is anatomic. There is no fracture. Left L4 hemilaminectomy noted. No traumatic subluxation. The vertebral body heights are well maintained. Mild narrowing of L4 on L5 space. The other disc spaces are preserved. Spinal canal: . T12-L1: No significant spinal canal or neuroforaminal stenosis L1-L2: No significant spinal canal or neuroforaminal stenosis L2-L3: No significant spinal canal and neural foraminal stenosis L3-L4: No significant spinal canal or neural foraminal stenosis L4-L5: Postsurgical changes from Left L4 hemilaminectomy . There is a posterior disc osteophyte complex resulting in similar mild degree of spinal canal stenosis Moderate degenerative disc changes and facet arthropathy. Stable mild bilateral mild neural foraminal stenosis.. L5-S1:Moderate degenerative disc changes and facet arthropathy. No significant spinal canal stenosis. Mild right neural foraminal stenosis. Surgical changes along the paravertebral soft tissues . Redemonstration of fluid collection in the posterior left paraspinal soft tissue spanning L3-L4 previously L3 through L5 decreased in size currently 2.5 x 2.8 x 2.4 cm previously 3.5 x 3.4 x 3 x4.5 cm Mild sacroiliac joint osteoarthrosis. The visualized abdomen is unremarkable. Incidental stable left adrenal nodule measures 1.2 x 1.8 cm. Surgical clips right lower quadrant, unchanged. TUNGRADMarsha Bourgeois MD - 04/24/2024 STUDY: CT Lumbar Spine without IV Contrast; 04/23/2024 at 11:46 PM INDICATION: Back pain. COMPARISON: CT lumbar spine 03/09/2024, CT lumbar spine 11/13/2023, CT lumbar spine 11/09/2023. ACCESSION NUMBER(S): [id number] ORDERING CLINICIAN: MORA MANDUJANO TECHNIQUE: CT of the lumbar spine was performed without intravenous or intrathecal contrast. Sagittal and coronal reconstructions were generated. Automated mA/kV exposure control was utilized and patient examination was performed in strict accordance with principles of ALARA. FINDINGS: The alignment is anatomic. There is no fracture. Left L4 hemilaminectomy noted. No traumatic subluxation. The vertebral body heights are well maintained. Mild narrowing of L4 on L5 space. The other disc spaces are preserved. Spinal canal: . T12-L1: No significant spinal canal or neuroforaminal stenosis L1-L2: No significant spinal canal or neuroforaminal stenosis L2-L3: No significant spinal canal and neural foraminal stenosis L3-L4: No significant spinal canal or neural foraminal stenosis L4-L5: Postsurgical changes from Left L4 hemilaminectomy . There is a posterior disc osteophyte complex resulting in similar mild degree of spinal canal stenosis Moderate degenerative disc changes and facet arthropathy. Stable mild bilateral mild neural foraminal stenosis.. L5-S1:Moderate degenerative disc changes and facet arthropathy. No significant spinal canal stenosis. Mild right neural foraminal stenosis. Surgical changes along the paravertebral soft tissues . Redemonstration of fluid collection in the posterior left paraspinal soft tissue spanning L3-L4 previously L3 through L5 decreased in size currently 2.5 x 2.8 x 2.4 cm previously 3.5 x 3.4 x 3 x4.5 cm Mild sacroiliac joint osteoarthrosis. The visualized abdomen is unremarkable. Incidental stable left adrenal nodule measures 1.2 x 1.8 cm. Surgical clips right lower quadrant, unchanged. IMPRESSION: No acute fracture or traumatic subluxation. Stable postsurgical changes from left L4 hemilaminectomy. Interval decrease in left paraspinal postsurgical collection likely due to postoperative seroma. Incidental stable left adrenal nodule measures 1.2 x 1.8 cm. Signed by Marsha Munguia MD [facility] Work Phone: CT Lumbar spine WO contrastOrdered By: Marsha Munguia on [id number] County Hospital Work Phone: Comprehensive metabolic 2000 panelon [id number] BCP dye [Mass/Vol]4.6 g/dL3.4 - 5.0 g/dLJoint Township District Memorial HospitalALP [Catalytic activity/Vol]115 U/LHigh33 - 110 U/[facility] ALT With P-5'-P [Catalytic activity/Vol]21 U/L7 - 45 U/[place] on above:Patients treated with Sulfasalazine may generate falsely decreased results for ALT.Anion gap [Moles/Vol]15 mmol/L10 - 20 mmol/L [facility] HospitalAST With P-5'-P [Catalytic activity/Vol]23 U/L9 - 39 U/[facility] HospitalBilirubin [Mass/Vol]0.3 mg/dL0.0 - 1.2 mg/dLUnWood County HospitalCalcium [Mass/Vol]9.5 mg/dL8.6 - 10.6 mg/dLUnWood County HospitalChloride [Moles/Vol]104 mmol/L98 - 107 mmol/[facility] HospitalCO2 [Moles/Vol]25 mmol/L21 - 32 mmol/L [facility] HospitalCreatinine [Mass/Vol]0.89 mg/dL0.50 - 1.05 mg/dLUnWood County HospitalGFR/1.73 sq M.predicted among non-blacks MDRD (S/P/Bld) [Vol rate/Area]81 mL/min/{1.73_m2}- PINFUniSuburban Community Hospital & [facility] on above:Calculations of estimated GFR are performed using the 2020 CKD-EPI Study Refit equation without therace variable for the IDMS- Traceable creatinine methods. https://jasn.asnjournals.org/content//ASN.6636307851 Glucose [Mass/Vol]109 mg/uYGjie07 - 99 mg/dLUnWood County Hospital Interpretation and review of laboratory resultsAbnormalUniShelby Memorial HospitalPotassium [Moles/Vol]4 mmol/L3.5 - 5.3 mmol/[facility] HospitalProtein [Mass/Vol]8.3 g/dLHigh6.4 - 8.2 g/dLUnWood County HospitalSodium [Moles/Vol]140 mmol/L136 - 145 mmol/[facility] HospitalUrea nitrogen [Mass/Vol]16 mg/dL6 - 23 mg/dLUnWood County HospitalMR Lumbar spine WO contraston . No critical spinal canal or neural foraminal stenosis. 2. Redemonstration of loculated fluid collection within the soft tissues posterior to L4-5, within the surgical bed, stable in size and appearance when compared to same day CT lumbar spine but gradually decreased in size compared to multiple prior examinations measuring up to 4.5 x 3.3 x 3.1 cm, possibly representing postoperative seroma (series 4, image 19 and series 6, image 42), although the sterility of this fluid can not be determined by imaging; correlate clinically with infection to exclude the less favored possibility of abscess. Differential diagnosis includes possible pseudomeningocele. The fluid of this cystic region would likely be amenable to image guided percutaneous sampling for laboratory analysis as clinically indicated. 3. 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 I personally reviewed the images/study and I agree with the findings as stated above by resident physician, Dr. Jennifer Singh. MACRO: None Signed by: Joshua Choi 04/24/2024 1:36 AM Dictation workstation: [id number] By: Joshua Choi and Liller Gregory STUDY: MR LUMBAR SPINE WO IV CONTRAST; 04/24/2024 12:41 am INDICATION: Signs/Symptoms:back pain and incontinence. COMPARISON: CT lumbar spine 04/23/2024, 03/28/2024, 03/19/2024, MR lumbar spine 01/10/2024, 01/01/2024. ACCESSION NUMBER(S): [id number] ORDERING CLINICIAN: MORA MANDUJANO TECHNIQUE: Sagittal T1, T2, STIR and axial T2 and T1 weighted MR images of the lumbar spine were obtained. FINDINGS: Images are mildly degraded by patient motion artifact. LUMBAR SPINE: Alignment: The vertebral alignment is maintained. Vertebrae/Intervertebral Discs: There are 5 lumbar type vertebral bodies. The vertebral bodies demonstrate expected height. Postsurgical changes noted at L4-5 from laminectomy. Mixed Modic changes are noted at L4-5, similar to prior exam. Otherwise, the vertebral marrow signal is within normal limits. Loss of disc height and normal signal intensity noted at L4-5. The remainder of the intervertebral discs are unremarkable. Conus medullaris: The conus medullaris terminates at L1-L2. T12-L1: No significant spinal canal or neural foraminal stenosis. The likely perineural cyst versus nerve sheath tumor noted within the left T12-L1 neural foramina measuring 0.7 cm (series 6, image 10). L1-2: There is no significant spinal canal or neural foraminal stenosis. L2-3: There is no significant spinal canal or neural foraminal stenosis. L3-4: Mild facet arthropathy noted. There is no significant spinal canal or neural foraminal stenosis. L4-5: Disc osteophyte complex flattens the ventral thecal sac. Additionally, there is mild ligamentum flavum hypertrophy and facet arthropathy resulting in mild bilateral neural foraminal stenosis without significant spinal canal stenosis. L5-S1: Small disc bulge flattens the ventral thecal sac. Additionally, there is ligamentum flavum hypertrophy and moderate facet arthropathy contributing to mild left and moderate right neural foraminal stenosis. Redemonstration of loculated fluid collection within the soft tissues posterior to L4-5, within the surgical bed, stable in size and appearance when compared to same day CT lumbar spine but gradually decreased in size compared to multiple prior examinations measuring up to 4.5 x 3.3 x 3.1 cm, possibly representing postoperative seroma (series 4, image 19 and series 6, image 42), although the sterility of this fluid can not be determined by imaging; correlate clinically with infection to exclude the less favored possibility of abscess. Differential diagnosis includes possible pseudomeningocele. The fluid of this cystic region would likely be amenable to image guided percutaneous sampling for laboratory analysis as clinically indicated. Multiple areas of susceptibility artifact noted within the incision site consistent with prior hemosiderin deposition. [facility] MMODALJoshua Choi MD - 04/24/2024 Interpreted By: Joshua Choi and Liller Gregory STUDY: MR LUMBAR SPINE WO IV CONTRAST; 04/24/2024 12:41 am INDICATION: Signs/Symptoms:back pain and incontinence. COMPARISON: CT lumbar spine 04/23/2024, 03/28/2024, 03/19/2024, MR lumbar spine 01/10/2024, 01/01/2024. ACCESSION NUMBER(S): [id number] ORDERING CLINICIAN: MORA MANDUJANO TECHNIQUE: Sagittal T1, T2, STIR and axial T2 and T1 weighted MR images of the lumbar spine were obtained. FINDINGS: Images are mildly degraded by patient motion artifact. LUMBAR SPINE: Alignment: The vertebral alignment is maintained. Vertebrae/Intervertebral Discs: There are 5 lumbar type vertebral bodies. The vertebral bodies demonstrate expected height. Postsurgical changes noted at L4-5 from laminectomy. Mixed Modic changes are noted at L4-5, similar to prior exam. Otherwise, the vertebral marrow signal is within normal limits. Loss of disc height and normal signal intensity noted at L4-5. The remainder of the intervertebral discs are unremarkable. Conus medullaris: The conus medullaris terminates at L1-L2. T12-L1: No significant spinal canal or neural foraminal stenosis. The likely perineural cyst versus nerve sheath tumor noted within the left T12-L1 neural foramina measuring 0.7 cm (series 6, image 10). L1-2: There is no significant spinal canal or neural foraminal stenosis. L2-3: There is no significant spinal canal or neural foraminal stenosis. L3-4: Mild facet arthropathy noted. There is no significant spinal canal or neural foraminal stenosis. L4-5: Disc osteophyte complex flattens the ventral thecal sac. Additionally, there is mild ligamentum flavum hypertrophy and facet arthropathy resulting in mild bilateral neural foraminal stenosis without significant spinal canal stenosis. L5-S1: Small disc bulge flattens the ventral thecal sac. Additionally, there is ligamentum flavum hypertrophy and moderate facet arthropathy contributing to mild left and moderate right neural foraminal stenosis. Redemonstration of loculated fluid collection within the soft tissues posterior to L4-5, within the surgical bed, stable in size and appearance when compared to same day CT lumbar spine but gradually decreased in size compared to multiple prior examinations measuring up to 4.5 x 3.3 x 3.1 cm, possibly representing postoperative seroma (series 4, image 19 and series 6, image 42), although the sterility of this fluid can not be determined by imaging; correlate clinically with infection to exclude the less favored possibility of abscess. Differential diagnosis includes possible pseudomeningocele. The fluid of this cystic region would likely be amenable to image guided percutaneous sampling for laboratory analysis as clinically indicated. Multiple areas of susceptibility artifact noted within the incision site consistent with prior hemosiderin deposition. IMPRESSION: 1. No critical spinal canal or neural foraminal stenosis. 2. Redemonstration of loculated fluid collection within the soft tissues posterior to L4-5, within the surgical bed, stable in size and appearance when compared to same day CT lumbar spine but gradually decreased in size compared to multiple prior examinations measuring up to 4.5 x 3.3 x 3.1 cm, possibly representing postoperative seroma (series 4, image 19 and series 6, image 42), although the sterility of this fluid can not be determined by imaging; correlate clinically with infection to exclude the less favored possibility of abscess. Differential diagnosis includes possible pseudomeningocele. The fluid of this cystic region would likely be amenable to image guided percutaneous sampling for laboratory analysis as clinically indicated. 3. 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 I personally reviewed the images/study and I agree with the findings as stated above by resident physician, Dr. Jennifer Singh. MACRO: None Signed by: Joshua Choi 04/24/2024 1:36 AM Dictation workstation: [id number] [facility] Work Phone: Radiology Study observation (narrative)[facility] Work Phone: MR Lumbar spine WO contrastOrdered By: Joshua Choi on [id number] County Hospital Work Phone: Magnesiumon [id number] [Mass/Vol]2.17 mg/dL 1.60 - 2.40 mg/dLUnWood County HospitalNo Panel Informationon [id number] and review of laboratory resultsNormalUniversSelect Specialty Hospital - EvansvilleUnWood County HospitalPhosphoruson 04-24-2024 Phosphate [Mass/Vol]3.7 mg/dL2.5 - 4.9 mg/dLJoint [facility] District [facility] Comment on above:The performance characteristics of phosphorus testing in heparinized plasma have been validated by the individual laboratory site where testing is performed. Testing on heparinized plasma is not approved by the FDA; however, such approval is not necessary.Urinalysis complete W Reflex Culture panel (U)on [id number] (U)TurbidAbnormalClearUnWood County HospitalBilirubin (U) [Mass/Vol]NegativeNEGATIVEUnWood County HospitalColor (U)YellowLight-Yellow, Yellow, Dark-YellowUnWood County HospitalEpithelial cells.squamous Auto (Urine sed) [#/Area]10-25 (FEW)Reference range not established. /HPFUnWood County Hospital Glucose Auto test strip (U) [Mass/Vol]NormalNormal mg/dLUnWood County HospitalInterpretation and review of laboratory resultsAbnormalUniShelby Memorial HospitalKetones (U) [Mass/Vol]TRACEAbnormalNEGATIVE mg/dL [facility] HospitalLeukocyte esterase Auto test strip Ql (U) NegativeNEGATIVEUnWood County HospitalMucus Auto (Urine sed) [#/Area] 4+Reference range not established. /LPFUniShelby Memorial HospitalNitrite Auto test strip Ql (U)NegativeNEGATIVEUnWood County HospitalpH (U)5.5 [pH]5.0, 5.5, 6.0, 6.5, 7.0, 7.5, 8.0UnWood County HospitalProtein (U) [Mass/Vol]50 (1+)AbnormalNEGATIVE, 10 (TRACE), 20 (TRACE) mg/dLUnWood County HospitalRBC (U) [#/Vol]NegativeNEGATIVEUnWood County HospitalRBC Auto (Urine sed) [#/Area]1-2NONE, 1-2, 3-5 /RIVERTON HOSPITALUnWood County HospitalSpecific gravity (U) [Rel density]>1.681Rhjmccjn1.005 - 1.035 [facility] on above:Specific gravity of >1.050 may be falsely elevated due to interferences with measurement. If clinically indicated, repeat testing with an alternative method is available by contacting the laboratory within 24 hours.Urobilinogen (U) [Mass/Vol]2 (1+)AbnormalNormal mg/dLUnProMedica Toledo Hospital on above:Due to a manufacturing issue, low positive urobilinogen results may be falsely positive. Correlate with urine bilirubin and additional clinical/laboratory findings to assess the risk of hemolytic anemia or liver disease. If clinically indicated, repeat testing with an alternate method is available by contacting the laboratory within 24 hours. Some pigments and medications may cause a false positive urobilinogen. WBC Auto (Urine sed) [#/Area]55-96Evapigln7-1, NONE /HPFJoint Township District Memorial HospitalUnWood County HospitalAppearance (U)TurbidNormalClear [facility] Memorial HospitalComment on above:Performed By: #### 87477-8 #### JOLENE WELSHMOTZER L ([id number]) [facility] ([facility]) [address] [place] [address] 63392Nfkgqkjvi (U) [Mass/Vol]NegativeNormalNEGATIVEMemorial Health System Marietta Memorial HospitalComment on above:Performed By: #### 24998-4 #### JOLENE SCHMOTZER L ([id number]) [facility] ([facility]) [address] [place] [address] 01740Yjwym (U)YellowNormalLight-Yellow, Yellow, Dark-Yellow [facility] Memorial HospitalComment on above:Performed By: #### 20798-9 #### JOLENE WELSHMOTZSUSAN L ([id number]) [facility] ([facility]) [address] [place] [address] 04639Yzofqssywy cells.squamous Auto (Urine sed) [#/Area]10-25 (FEW)NormalReference range not established.[facility] Memorial HospitalComment on above:Performed By: #### 83648-5 #### JOLENE NELSONTZER L ([id number]) [facility] ([facility]) [address] [place] [address] 48786Hqgywou Auto test strip (U) [Mass/Vol]NormalNormalNormal [facility] Memorial HospitalComment on above:Performed By: #### 84673-4 #### JOLENE SCHMOTZER L ([id number]) [facility] ([facility]) [address] [place] [address] 00000Lnxqbfy (U) [Mass/Vol]TRACEAbnormalNEGATIVEMemorial Health System Marietta Memorial HospitalComment on above:Performed By: #### 25711-6 #### JOLENE WELSHMOTZER L ([id number]) [facility] ([facility]) [address] [place] [address] 62140Dlmljltws esterase Auto test strip Ql (U)NegativeNormal NEGATIVEUnSamaritan North Health CenterComment on above:Performed By: #### 97076-7 #### JOLENE Cantu ([id number]) [facility] ([facility]) [address] [place] [address] 68370Tixdj Auto (Urine sed) [#/Area]4+ /LPFNormalReference range not established.[facility] Memorial HospitalComment on above: Performed By: #### 43208-6 #### JOLENE Cantu ([id number]) [facility] ([facility]) [address] [place] [address] 91699Whvzfrc Auto test strip Ql (U)NegativeNormalNEGATIVE [facility] Memorial HospitalComment on above:Performed By: #### 68916-3 #### JOLENE Cantu ([id number]) [facility] ([facility]) [address] [place] [address] 28271iI (U)5.5 [pH]Normal5.0, 5.5, 6.0, 6.5, 7.0, 7.5, 8.0 [facility] Memorial HospitalComment on above:Performed By: #### 21397-3 #### JOLENE Cantu ([id number]) [facility] ([facility]) [address] [place] [address] 07240Drzbkeh (U) [Mass/Vol]50 (1+)AbnormalNEGATIVE, 10 (TRACE), 20 (TRACE)[facility] Memorial HospitalComment on above:Performed By: #### 84063-3 #### JOLENE Cantu ([id number]) [facility] ([facility]) [address] [place] [address] 64799HMB (U) [#/Vol]NegativeNormalNEGATIVEUnSamaritan North Health CenterComment on above:Performed By: #### 40562-1 #### JOLENE Cantu ([id number]) [facility] ([facility]) [address] [place] [address] 02238QZV Auto (Urine sed) [#/Area]1-2NormalNONE, 1-2, 3-5 [facility] HospitalComment on above:Performed By: #### 75335-7 #### JOLENE Cantu ([id number]) [facility] ([facility]) [address] [place] [address] 06587Rtcstvwl gravity (U) [Rel density]>1.742Gefshb2.005-1.035 [facility] Memorial HospitalComment on above:Result Comment: Specific gravity of >1.050 may be falsely elevated due to interferences with measurement. If clinically indicated, repeat testing with an alternative method is available by contacting the laboratory within 24 hours.Performed By: #### 81208-3 #### JOLENE Cantu ([id number]) [facility] ([facility]) [address] [place] [address] 77020Qzfnbbpvbnib (U) [Mass/Vol]2 (1+)AbnormalNormalUniversMercy Health St. Elizabeth Boardman HospitalComment on above:Result Comment: Due to a manufacturing issue, low positive urobilinogen results may be falsely positive. Correlate with urine bilirubin and additional clinical/laboratory findings to assess the risk of hemolytic anemia or liver disease. If clinically indicated, repeat testing with an alternate method is available by contacting the laboratory within 24 hours. Some pigments and medications may cause a false positive urobilinogen.Performed By: #### 96406-1 #### JOLENE Cantu ([id number]) [facility] ([facility]) [address] [place] [address] 86840RJD Auto (Urine sed) [#/Area]41-48Zxyandin9-4, NONEUnSamaritan North Health CenterComment on above:Performed By: #### 68505-3 #### JOLENE Cantu ([id number]) [facility] ([facility]) [address] [place] [address] 70428NZQ W Auto Differential panel (Bld)on 29-62-4838Zsgkvwqpo (Bld) [#/Vol]0.02 10*3/[facility] HospitalBasophils/100 WBC (Bld)0.2 %0.0 - 2.0 %[facility] HospitalEosinophils (Bld) [#/Vol] 0.21 10*3/[facility] HospitalEosinophils/100 WBC (Bld)2 %0.0 - 6.0 %[facility] HospitalErythrocyte distribution width (RBC) [Ratio]13.9 %11.5 - 14.5 %[facility] HospitalHematocrit (Bld) [Volume fraction]43.3 %36.0 - 46.0 %[facility] HospitalHemoglobin (Bld) [Mass/Vol]14.7 g/dL12.0 - 16.0 g/dLUnWood County Hospital Immature granulocytes (Bld) [#/Vol]0.05 10*3/[facility] Immature granulocytes/100 WBC (Bld)0.5 %0.0 - 0.9 %[facility] on above:Immature Granulocyte Count (IG) includes promyelocytes, myelocytes and metamyelocytes but does not include bands. Percent differential counts (%) should be interpreted in the context of the absolute c ell counts (cells/UL).Lymphocytes (Bld) [#/Vol]2.54 10*3/[facility] HospitalLymphocytes/100 WBC (Bld)24.8 %13.0 - 44.0 %[facility] ShawH (RBC) [Entitic mass]29.7 pg26.0 - 34.[address] Joseph Warren HospitalHC (RBC) [Mass/Vol]33.9 g/dL32.0 - 36.0 g/dLSelect Medical Cleveland Clinic Rehabilitation Hospital, Edwin ShawV (RBC) [Entitic vol]88 fL80 - 100 fLUniShelby Memorial HospitalMonocytes (Bld) [#/Vol]0.59 10*3/[facility] Monocytes/100 WBC (Bld)5.8 %2.0 - 10.0 %[facility] Neutrophils (Bld) [#/Vol]6.84 10*3/[facility] on above:Percent differential counts (%) should be interpreted in the context of the absolute cell counts (cells/uL).Neutrophils/100 WBC (Bld)66.7 %40.0 - 80.0 % [facility] HospitalNucleated RBC/100 WBC (Bld) [Ratio]0 % [facility] HospitalPlatelets (Bld) [#/Vol]405 10*3/[facility] HospitalRBC (Bld) [#/Vol]4.95 10*6/[facility] HospitalWBC (Bld) [#/Vol]10.3 10*3/[facility] HospitalBasophils (Bld) [#/Vol]0.02 x10*3/uLNormal 0.00-0.10[facility] HospitalComment on above:Performed By: #### 36069-8 #### JOLENE Cantu ([id number]) [facility] ([facility]) [id number] [place] [address] 98378Fhsetwubj/100 WBC (Bld)0.2 %Normal0.0-2.0UnSamaritan North Health CenterComment on above:Performed By: #### 82556-4 #### JOLENE Cantu ([id number]) [facility] ([facility]) [address] [place] [address] 44482Tqbjigehxap (Bld) [#/Vol]0.21 x10*3/uLNormal0.00-0.70 [facility] HospitalComment on above:Performed By: #### 89519-4 #### JOLENE Cantu ([id number]) [facility] ([facility]) [address] [place], [place] [address]Xegylohsgog/100 WBC (Bld)2.0 %Normal0.0-6.0UnSamaritan North Health CenterComment on above:Performed By: #### 39852-3 #### JOLENE Cantu ([id number]) [facility] ([facility]) [address] [place] [address] 26053Ezxsxuztaqf distribution width (RBC) [Ratio]13.9 %Normal 11.5-14.5[facility] Memorial HospitalComment on above:Performed By: #### 34737-0 #### JOLENE Cantu ([id number]) [facility] ([facility]) [address] [place], [place] [address]Qyhhsxncox (Bld) [Volume fraction]43.3 %Setnve95.0-46.0 [facility] Memorial HospitalComment on above:Performed By: #### 84330-3 #### JOLENE RONQUILLO L ([id number]) [facility] ([facility]) [address] [place], [place] [address]Hrjuyxqyrz (Bld) [Mass/Vol]14.7 g/aICfbcpk14.0-16.0UnSamaritan North Health CenterComment on above:Performed By: #### 39259-3 #### JOLENE RONQUILLO L ([id number]) [facility] ([facility]) [address] [place] [address] 76671Dqyvifqn granulocytes (Bld) [#/Vol]0.05 x10*3/uLNormal 0.00-0.70UnSamaritan North Health CenterComment on above:Performed By: #### 84667-6 #### JOLENE Cantu ([id number]) [facility] ([facility]) [address] [place] [address] 61324Nygscuas granulocytes/100 WBC (Bld)0.5 %Normal0.0-0.9 [facility] Memorial HospitalComment on above:Result Comment: Immature Granulocyte Count (IG) includes promyelocytes, myelocytes and metamyelocytes but does not include bands. Percent differential counts (%) should be interpreted in the context of the absolute cell counts (cells/UL). Performed By: #### 67138-3 #### JOLENE RONQUILLO L ([id number]) [facility] ([facility]) [address] [place] [address] 45282Ffgryzzgwjh (Bld) [#/Vol]2.54 x10*3/uLNormal1.20-4.80 [facility] HospitalComment on above:Performed By: #### 83984-5 #### JOLENE RONQUILLO L ([id number]) [facility] ([facility]) [address] [place] [address] 26931Nfbofxwagyd/100 WBC (Bld)24.8 %Qstesj14.0-44.0[facility] Memorial HospitalComment on above:Performed By: #### 60239-6 #### JOLENE Cantu ([id number]) [facility] ([facility]) [address] [place], [place] [address]OIV (RBC) [Entitic mass]29.7 ibWyikgn23.0-34.0UnSamaritan North Health CenterComment on above:Performed By: #### 67362-1 #### JOLENE Cantu (77879) [facility] ([facility]) [address] [place], [place] [address]CFNR (RBC) [Mass/Vol]33.9 g/uLMzjkyb49.0-36.0UnSamaritan North Health CenterComment on above:Performed By: #### 45216-2 #### JOLENE Cantu (45692) [facility] ([facility]) [address] [place], [place] [address]DQT (RBC) [Entitic vol]88 uKRuazqg17-204PpngaggwrwSamaritan North Health CenterComment on above:Performed By: #### 09834-6 #### JOLENE Cantu ([id number]) [facility] ([facility]) [address] [place] [address] 90240Bylgtzxak (Bld) [#/Vol]0.59 x10*3/uLNormal0.10-1.00UnSamaritan North Health CenterComment on above:Performed By: #### 81871-1 #### JOLENE Cantu (94131) [facility] ([facility]) [address] [place], [place] [address]Jfapcoomk/100 WBC (Bld)5.8 %Normal2.0-10.0UnSamaritan North Health CenterComment on above:Performed By: #### 81317-4 #### JOLENE Cantu ([id number]) [facility] ([facility]) [address] [place], [place] [address]Ryubmgvrwgq (Bld) [#/Vol]6.84 x10*3/uLNormal1.20-7.70 [facility] HospitalComment on above:Result Comment: Percent differential counts (%) should be interpreted in the context of the absolute cell counts (cells/uL).Performed By: #### 69387-4 #### JOLENE Cantu ([id number]) [facility] ([facility]) [address] [place], [place] [address]Ihrrdvztzgw/100 WBC (Bld)66.7 %Pkjdqi04.0-80.0UnSamaritan North Health CenterComment on above:Performed By: #### 38307-9 #### JOLENE Cantu ([id number]) [facility] ([facility]) [address] [place] [address] 10564Cmlswnmoi RBC/100 WBC (Bld) [Ratio]0.0 /100 WBCsNormal0.0-0.0 [facility] HospitalComment on above:Performed By: #### 57430-5 #### JOLENE Cantu (65898) [facility] ([facility]) [address] [place] [address] 96[address]Tsaexpstq (Bld) [#/Vol]405 x10*3/eLGmcwuy890-141VtdlnghgedSamaritan North Health CenterComment on above:Performed By: #### 30908-9 #### JOLENE Cantu ([id number]) [facility] ([facility]) [address] [place], [place] [address]BYV (Bld) [#/Vol]4.95 x10*6/uLNormal4.00-5.20UnSamaritan North Health CenterComment on above:Performed By: #### 80793-5 #### JOLENE Cantu (05302) [facility] ([facility]) [address] [place] [address] 42177VVW (Bld) [#/Vol]10.3 x10*3/uLNormal4.4-11.3UnSamaritan North Health CenterComment on above:Performed By: #### 61888-5 #### JOLENE YG Cantu ([id number]) [facility] ([facility]) [address] [place], [place] [address]UC LUMBAR SPINE WO IV CONTRASTon [id number] LUMBAR SPINE WO IV CONTRASTSTUDY: CT Lumbar Spine without IV Contrast; 04/23/2024 at 11:46 PM INDICATION: Back pain. COMPARISON: CT lumbar spine 03/09/2024, CT lumbar spine 11/13/2023, CT lumbar spine 11/09/2023. ACCESSION NUMBER(S): [id number] ORDERING CLINICIAN: MORA MANDUJANO TECHNIQUE: CT of the lumbar spine was performed without intravenous or intrathecal contrast. Sagittal and coronal reconstructions were generated. Automated mA/kV exposure control was utilized and patient examination was performed in strict accordance with principles of ALARA. FINDINGS: The alignment is anatomic. There is no fracture. Left L4 hemilaminectomy noted. No traumatic subluxation. The vertebral body heights are well maintained. Mild narrowing of L4 on L5 space. The other disc spaces are preserved. Spinal canal: . T12-L1: No significant spinal canal or neuroforaminal stenosis L1-L2: No significant spinal canal or neuroforaminal stenosis L2-L3: No significant spinal canal and neural foraminal stenosis L3-L4: No significant spinal canal or neural foraminal stenosis L4-L5: Postsurgical changes from Left L4 hemilaminectomy . There is a posterior disc osteophyte complex resulting in similar mild degree of spinal canal stenosis Moderate degenerative disc changes and facet arthropathy. Stable mild bilateral mild neural foraminal stenosis.. L5-S1:Moderate degenerative disc changes and facet arthropathy. No significant spinal canal stenosis. Mild right neural foraminal stenosis. Surgical changes along the paravertebral soft tissues . Redemonstration of fluid collection in the posterior left paraspinal soft tissue spanning L3-L4 previously L3 through L5 decreased in size currently 2.5 x 2.8 x 2.4 cm previously 3.5 x 3.4 x 3 x4.5 cm Mild sacroiliac joint osteoarthrosis. The visualized abdomen is unremarkable. Incidental stable left adrenal nodule measures 1.2 x 1.8 cm. Surgical clips right lower quadrant, unchanged. IMPRESSION: No acute fracture or traumatic subluxation. Stable postsurgical changes from left L4 hemilaminectomy. Interval decrease in left paraspinal postsurgical collection likely due to postoperative seroma. Incidental stable left adrenal nodule measures 1.2 x 1.8 cm. Signed by Marsha Munguia MDNormalUniversMercy Health St. Elizabeth Boardman HospitalCT Lumbar spine WO contraston [id number] Study observation (narrative) [facility] Work Phone: Comprehensive metabolic 2000 panelon [id number] BCP dye [Mass/Vol]4.6 g/dLNormal3.4-5.0UnSamaritan North Health CenterComment on above:Performed By: #### 77236-5 #### JOLENE Cantu ([id number]) [facility] ([facility]) [id number] [place] [address] 02387VZX [Catalytic activity/Vol]115 U/VUdba49-092SnqvzpcekkSamaritan North Health CenterComment on above:Performed By: #### 66701-6 #### JOLENE Cantu ([id number]) [facility] ([facility]) [address] [place] [address] 36964CPL With P-5'-P [Catalytic activity/Vol]21 U/LNormal7-45 [facility] HospitalComment on above:Result Comment: Patients treated with Sulfasalazine may generate falsely decreased results for ALT.Performed By: #### 68483-2 #### JOLENE Cantu ([id number]) [facility] ([facility]) [address] [place] [address] 12688Nfjnz gap [Moles/Vol]15 mmol/PNnuubt14-65KhqquzulafSamaritan North Health CenterComment on above:Performed By: #### 89735-2 #### JOLENE Cantu ([id number]) [facility] ([facility]) [address] [place] [address] 79269JPJ With P-5'-P [Catalytic activity/Vol]23 U/LNormal9-39 [facility] HospitalComment on above:Performed By: #### 33480-1 #### JOLENE Cantu ([id number]) [facility] ([facility]) [address] [place] [address] 55669Btccoqdzw [Mass/Vol]0.3 mg/dLNormal0.0-1.2UnSamaritan North Health CenterComment on above:Performed By: #### 81497-7 #### JOLENE Cantu ([id number]) [facility] ([facility]) [address] [place], [place] [address]Acefzru [Mass/Vol]9.5 mg/dLNormal8.6-10.6UnSamaritan North Health CenterComment on above:Performed By: #### 97790-9 #### JOLENE RONQUILLO L ([id number]) [facility] ([facility]) [address] [place], [place] [address]Flztrduu [Moles/Vol]104 mmol/EYlzbcc68-046QsynifdwyzSamaritan North Health CenterComment on above:Performed By: #### 52535-6 #### JOLENE RONQUILLO L ([id number]) [facility] ([facility]) [address] [place], [place] [address]JW5 [Moles/Vol]25 mmol/YWedzdy28-68JvftswdktaSamaritan North Health CenterComment on above:Performed By: #### 80494-3 #### JOLENE Cantu ([id number]) [facility] ([facility]) [address] [place], [place] [address]Anwsltbouw [Mass/Vol]0.89 mg/dLNormal0.50-1.05UnSamaritan North Health CenterComment on above:Performed By: #### 89319-1 #### JOLENE RONQUILLO L ([id number]) [facility] ([facility]) [address] [place], [place] [address]Oooxxqylwj filtration rate/1.73 sq M.exskehtwv49 mL/min/1.73m*2Normal>60UnSamaritan North Health CenterComment on above:Result Comment: Calculations of estimated GFR are performed using the 2020 CKD-EPI Study Refit equation without the race variable for the IDMS-Traceable creatinine methods. https://jasn.asnjournals.org/content//ASN.0266840378Qyeryhsvv By: #### 23826-5 #### JOLENE Cantu ([id number]) [facility] ([facility]) [address] [place] [address] 33426Jhpzotk [Mass/Vol]109 mg/lGOyux86-88LngdpbhtphSamaritan North Health CenterComment on above:Performed By: #### 91104-3 #### JOLENE Cantu ([id number]) [facility] ([facility]) [address] [place] [address]Ayyfsmgac [Moles/Vol]4.0 mmol/LNormal3.5-5.3[facility] HospitalComment on above:Performed By: #### 64862-5 #### JOLENE Cantu ([id number]) [facility] ([facility]) [address] [place] [address]Insxsbb [Mass/Vol]8.3 g/dLHigh6.4-8.2UnSamaritan North Health CenterComment on above:Performed By: #### 17184-3 #### JOLENE Cantu ([id number]) [facility] ([facility]) [address] [place] [address] 13123Odekof [Moles/Vol]140 mmol/ATdckfz589-353BwgoyqwcwoSamaritan North Health CenterComment on above:Performed By: #### 59857-0 #### JOLENE Cantu ([id number]) [facility] ([facility]) [address] [place] [address] 10117Xirp nitrogen [Mass/Vol]16 mg/dLNormal6-23[facility] HospitalComment on above:Performed By: #### 98177-6 #### JOLENE Cantu ([id number]) [facility] ([facility]) [address] [place] [address]6445DI LUMBAR SPINE WO IV CONTRASTon [id number] LUMBAR SPINE WO IV CONTRASTInterpreted By: Joshua Choi and Liller Gregory STUDY: MR LUMBAR SPINE WO IV CONTRAST; 04/24/2024 12:41 am INDICATION: Signs/Symptoms:back pain and incontinence. COMPARISON: CT lumbar spine 04/23/2024, 03/28/2024, 03/19/2024, MR lumbar spine 01/10/2024, 01/01/2024. ACCESSION NUMBER(S): [id number] ORDERING CLINICIAN: MORA MANDUJANO TECHNIQUE: Sagittal T1, T2, STIR and axial T2 and T1 weighted MR images of the lumbar spine were obtained. FINDINGS: Images are mildly degraded by patient motion artifact. LUMBAR SPINE: Alignment: The vertebral alignment is maintained. Vertebrae/Intervertebral Discs: There are 5 lumbar type vertebral bodies. The vertebral bodies demonstrate expected height. Postsurgical changes noted at L4-5 from laminectomy. Mixed Modic changes are noted at L4-5, similar to prior exam. Otherwise, the vertebral marrow signal is within normal limits. Loss of disc height and normal signal intensity noted at L4-5. The remainder of the intervertebral discs are unremarkable. Conus medullaris: The conus medullaris terminates at L1-L2. T12-L1: No significant spinal canal or neural foraminal stenosis. The likely perineural cyst versus nerve sheath tumor noted within the left T12-L1 neural foramina measuring 0.7 cm (series 6, image 10). L1-2: There is no significant spinal canal or neural foraminal stenosis. L2-3: There is no significant spinal canal or neural foraminal stenosis. L3-4: Mild facet arthropathy noted. There is no significant spinal canal or neural foraminal stenosis. L4-5: Disc osteophyte complex flattens the ventral thecal sac. Additionally, there is mild ligamentum flavum hypertrophy and facet arthropathy resulting in mild bilateral neural foraminal stenosis without significant spinal canal stenosis. L5-S1: Small disc bulge flattens the ventral thecal sac. Additionally, there is ligamentum flavum hypertrophy and moderate facet arthropathy contributing to mild left and moderate right neural foraminal stenosis. Redemonstration of loculated fluid collection within the soft tissues posterior to L4-5, within the surgical bed, stable in size and appearance when compared to same day CT lumbar spine but gradually decreased in size compared to multiple prior examinations measuring up to 4.5 x 3.3 x 3.1 cm, possibly representing postoperative seroma (series 4, image 19 and series 6, image 42), although the sterility of this fluid can not be determined by imaging; correlate clinically with infection to exclude the less favored possibility of abscess. Differential diagnosis includes possible pseudomeningocele. The fluid of this cystic region would likely be amenable to image guided percutaneous sampling for laboratory analysis as clinically indicated. Multiple areas of susceptibility artifact noted within the incision site consistent with prior hemosiderin deposition. IMPRESSION: 1. No critical spinal canal or neural foraminal stenosis. 2. Redemonstration of loculated fluid collection within the soft tissues posterior to L4-5, within the surgical bed, stable in size and appearance when compared to same day CT lumbar spine but gradually decreased in size compared to multiple prior examinations measuring up to 4.5 x 3.3 x 3.1 cm, possibly representing postoperative seroma (series 4, image 19 and series 6, image 42), although the sterility of this fluid can not be determined by imaging; correlate clinically with infection to exclude the less favored possibility of abscess. Differential diagnosis includes possible pseudomeningocele. The fluid of this cystic region would likely be amenable to image guided percutaneous sampling for laboratory analysis as clinically indicated. 3. 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 I personally reviewed the images/study and I agree with the findings as stated above by resident physician, Dr. Jennifer Singh. MACRO: None Signed by: Joshua Choi 04/24/2024 1:36 AM Dictation workstation: [id number] Medical Specialty Hospital - CincinnatiMagnesiumon [id number] [Mass/Vol]2.17 mg/dLNormal1.60-2.40 [facility] HospitalComment on above:Performed By: #### 73232-6 #### JOLENE Cantu ([id number]) [facility] ([facility]) [address] [place] [address] 31542Efewfykwpyu [id number] [Mass/Vol]3.7 mg/dLNormal 2.5-4.9UnSamaritan North Health CenterComment on above:Result Comment: The performance characteristics of phosphorus testing in heparinized plasma have been validated by the individual laboratory site where testing is performed. Testing on heparinizedplasma is not approved by the FDA; however, such approval is not necessary.Performed By: #### 34335-8 #### JOLENE Cantu ([id number]) [facility] ([facility]) [address] [place], [place] [address]AR Clinical Summaryon [id number] Clinical SummaryED Clinical Summary [facility] [address] [place], [place] [address] ED Clinical Summary Person Information Name: JERAD TRACY [place] Age: 49 Years : 1975 Sex: Female Language: Malagasy PCP: MARLEE FITZPATRICK MD Marital Status: Visit Id: Visit Reason: Back pain; BACK PAIN Speciality: Acuity: 4 Enc Type: Emergency Med Service: Emergency Arrival: 04/19/2024 12:09:22 Discharge: 04/19/2024 14:20:39 LOS: 000 02:11 Checkin: 04/19/2024 12:09:22 Checkout: 04/19/2024 14:20:39 Dispo Type: Home (Routine DC) EVENTS: Event Name Event Status Request Date/Time Start Date/Time Complete Date/Time Arrive Complete 04/19/2024 12:09:22 04/19/2024 12:09:22 04/19/2024 12:09:22 Document Home Meds Request 04/19/2024 12:09:22 Triage Complete 04/19/2024 12:09:22 04/19/2024 12:20:23 04/19/2024 12:20:23 Bed Assign Complete 04/19/2024 12:13:05 04/19/2024 12:13:05 04/19/2024 12:13:05 Dr Exam Complete 04/19/2024 12:13:05 04/19/2024 13:34:21 04/19/2024 13:34:21 RN Exam Complete 04/19/2024 12:13:05 04/19/2024 14:19:53 04/19/2024 14:19:53 Registration Complete 04/19/2024 13:34:21 04/19/2024 14:00:53 04/19/2024 14:00:53 Meds Admin Complete 04/19/2024 13:37:04 04/19/2024 13:49:19 Discharge Complete 04/19/2024 13:38:34 04/19/2024 14:20:46 04/19/2024 14:20:46 Reg Complete Request 04/19/2024 14:00:53 Reg Bed Request Complete 04/19/2024 14:00:53 04/19/2024 14:00:53 04/19/2024 14:00:53 Transfer Complete 04/19/2024 14:20:46 04/19/2024 14:20:46 04/19/2024 14:20:46 ADDRESS: [address] [place] [address] [facility] [id number] PHYS DOC NOTES: MEDICAL INFORMATION: Prescriptions Given: New Medications [id number], [address] [place], [place] [id number], [phone] acetaminophen-oxycodone (Percocet 5 mg-325 mg oral tablet) 1 Tablets By Mouth every 6 hours as needed Pain 8-10. Refills: 0. Medications to Continue with No Changes Other Medications azithromycin (azithromycin 250 mg Tab) 250 Milligram By Mouth As Directed. Take two tabs by mouth on day one, then one tab daily. Refills: 0. cyclobenzaprine (cyclobenzaprine 10 mg Tab) 1 Tablets By Mouth 3 times a day as needed for spasm. Refills: 0. cyclobenzaprine (cyclobenzaprine 10 mg Tab) 1 Tablets By Mouth 3 times a day as needed for spasm. Refills: 0. cyclobenzaprine (cyclobenzaprine 10 mg Tab) [...] and 12 hours off daily. Refills: 0. naproxen (Naprosyn 500 mg Tab) 1 Tablets By Mouth 2 times a day as needed for pain. Refills: 0. ondansetron (Zofran 4 mg Tab) [...] day. Refills: 0. PATIENT EDUCATION INFORMATION: Instructions: Acute Back Pain, Adult Follow up: With: Address: When: MARLEE FITZPATRICK [address] [place], [place] [address] [facility] (3) In 3 days 04/22/2024 Comments: Call the office of your primary [...] or any new or worsening symptoms. DIAGNOSIS: Back painNormalFisher Sal Medical CenterED Note-Physicianon [id number] Note-PhysicianED Note-Physician Basic Information Time Seen: Nikhil Tubbs DO 04/19/2024 13:34 Chief Complaint pt to ER c/o chronic lower back pain, worsening last night. pt states naproxen @0800 today. History of Present Illness 49-year-old female to the emergency department chief complaint of acute on chronic back pain. Patient reports that she had her grandkids and was doing a lot of lifting and playing. She reports increased back pain today. No bowel bladder incontinence or retention. No numbness, weakness, tingling. She is awaiting pain consultation at [facility]. She is otherwise at her baseline health. Review of Systems A 10 point review of systems is negative except as noted above. Medical and Surgical History: Reviewed and noted Social history: Lives at home Tobacco: Denies Physical Exam Vitals & Measurements T: 36.5 ???C(Oral) HR: 91(Peripheral) RR: 20 BP: 183/106 SpO2: 100% HT: 160 cm WT: 122 kg BMI: 47.66 VITALS: I have reviewed the triage vital [...] No JVD. Patient moves neck without restriction. EXTREMITIES: Symmetric muscle bulk. No joint swelling. No clubbing, cyanosis, or deformity. SKIN: Warm and dry. Normal turgor. No rash or lesions appreciated. PSYCH: Mood, affect, and interaction is appropriate to the setting. Medical Decision Making Well-appearing 49-year-old female to the emergency department chief complaint of acute on chronic back pain. Vital stable, the patient is afebrile. Dose of pain medication is given here to break the pain cycle. Short course for home. She has upcoming follow-up with [facility] pain management with whom she hopes to establish. OARRS reviewed. Return precaution discussed. All questions were answered. Patient was discharged home. Assessment/Plan Back pain (M54.9: Dorsalgia, unspecified) Ordered: acetaminophen-oxycodone, 1 tab(s), Oral, q6hr Pain 8-10, 8 tab(s), Refill(s) 0, [id number],160, cm, 04/19/24 12:20:00 EST, Height/Length Dosing, 122, kg, 04/19/24 12:20:00 EST, Weight Dosing Orders: HYDROmorphone, 0.5 mg = 0.5 mL, Injection, IntraMuscular, Once, Stop date 04/19/24 13:36:00 EST, STAT, Start date 04/19/24 13:36:00 EST, 04/19/24 13:36:00 EST Medications Administered Given HYDROmorphone 0.5 mg/0.5 mL injectable solution, 0.5 mg, IntraMuscular Disposition Plan Patient Discharge Condition Stable Home Discharge Prescription List Prescriptions Percocet 5 mg-325 mg oral tablet, 1 tab(s), Oral, q6hr, PRN Follow-up With When Contact Information MARLEE FITZPATRICK In 3 days 04/22/[address] [place], [place] [address]- Business (1) Additional Instructions: Call the office [...] any new or worsening symptoms. Patient Education Acute Back Pain, Adult Problem List/Past Medical History Ongoing [...] History Hysterectomy (2010), History of cholecystectomy, Hysterectomy, (more content not included)...[facility] HospitalComment on above:Result Comment: Electronically Signed By: Nikhil Tubbs DO\.br\Date and Time Signed: 04/19/24 15:37 ESTED Patient Summaryon [id number] Patient SummaryED Patient Summary [place] [id number] Patient Discharge Instructions Person Information Name: JERAD TRACY Age: 49 Years Arrival Date: 04/19/2024 12:09:22 Discharge Diagnosis: Back pain Primary Care Physician: MARLEE FITZPATRICK MD Provider Information Primary Provider: Nikhil Tubbs DO Advanced Dietetic Intern:None The exam and treatment you received in the Emergency Department were for an urgent problem and are not intended as complete care. It is important that you follow up with a doctor, nurse practitioner,or physician???s construction assistant for ongoing care. If your symptoms become worse or you do not improve asexpected and you are unable to reach your usual health care provider, you should return to the Emergency Department. We are available 24 hours a day. JERAD TRACY has been given the following list of patient education materials, prescriptions andfollow-up instructions: Follow-up Instructions: With: Address: When: MARLEE FITZPATRICK [address] [place] [address] [employer] (1Scopelec In 3 days 04/22/2024 Comments: Call the office of your primary [...] opioids can be used to help relieve znvtawew-ue-yoeans pain and are often prescribed following a [...] to manage your pain. o Talk about w (more content not included)...[facility] Note-Physicianon [id number] Note-PhysicianED Note-Physician Patient left without being seenNoProMedica Defiance Regional HospitalComment on above:Result Comment: Electronically Signed By: Annette Watkins, Balbina Sparks\.br\Date and Time Signed: 04/18/2502:10 ESTED Clinical Summaryon [id number] Clinical SummaryED Clinical Summary [place] [id number] ED Clinical Summary Person Information Name: JERAD TRACY Tasha/[facility] Age: 49 Years : 1975 Sex: Female Language: Malagasy PCP: MARLEE FITZPATRICK MD Marital Status: Phone: Visit Id: Visit Reason: Medical problem - minor; Back pain; BACK PAIN Speciality: Acuity: 4 Enc Type: Emergency Med Service: Emergency Arrival: 04/17/2024 20:26:26 Discharge: 04/17/2024 21:49:05 LOS: 000 01:23 Checkin: 04/17/2024 20:26:26 Checkout: 04/17/2024 21:49:05 Dispo Type: Left Without Being Seen EVENTS: Event Name Event Status Request Date/Time Start Date/Time Complete Date/Time Arrive Complete 04/17/2024 20:26:26 04/17/2024 20:26:26 04/17/2024 20:26:26 Document Home Meds Request 04/17/2024 20:26:26 Triage Complete 04/17/2024 20:26:26 04/17/2024 20:38:16 04/17/2024 20:38:16 Registration Complete 04/17/2024 20:59:04 04/17/2024 20:59:04 04/17/2024 20:59:04 Reg Complete Request 04/17/2024 20:59:04 Reg Bed Request Complete 04/17/2024 20:59:04 04/17/2024 20:59:04 04/17/2024 20:59:04 Discharge Complete 04/17/2024 21:49:38 04/17/2024 21:49:38 04/17/2024 21:49:38 Transfer Complete 04/17/2024 21:49:38 04/17/2024 21:49:38 04/17/2024 21:49:38 ADDRESS: [address] [place] [id number] PHYS DOC NOTES: MEDICAL INFORMATION: Prescriptions Given: Medications to Continue with No Changes Other Medications azithromycin (azithromycin 250 mg Tab) 250 Milligram By Mouth As Directed. Take two tabs by mouth on day one, then one tab daily. Refills: 0. cyclobenzaprine (cyclobenzaprine 10 mg Tab) 1 Tablets By Mouth 3 times a day as needed for spasm. Refills: 0. cyclobenzaprine (cyclobenzaprine 10 mg Tab) 1 Tablets By Mouth 3 times a day as needed for spasm. Refills: 0. cyclobenzaprine (cyclobenzaprine 10 mg Tab) [...] and 12 hours off daily. Refills: 0. naproxen (Naprosyn 500 mg Tab) 1 Tablets By Mouth 2 times a day as needed for pain. Refills: 0. ondansetron (Zofran 4 mg Tab) [...] day. Refills: 0. PATIENT EDUCATION INFORMATION: Instructions: Follow up: DIAGNOSIS:[facility] Patient Education Noteon [id number] Patient Education NoteED Patient Education NoteNormValley Presbyterian Hospital Medical CenterED Patient Summaryon [id number] Patient SummaryED Patient Summary [place] [id number] Patient Discharge Instructions Person Information Name: JERAD TRACY Age: 49 Years Arrival Date: 04/17/2024 20:26:26 Discharge Diagnosis: Primary Care Physician: AMARI SOTO, MARLEE Rausch Provider Information Primary Provider: Advanced Dietetic Intern:None The exam and treatment you received in the Emergency Department were for an urgent problem and are not intended as complete care. It is important that you follow up with a doctor, nurse practitioner,or physician???s construction assistant for ongoing care. If your symptoms become worse or you do not improve asexpected and you are unable to reach your usual health care provider, you should return to the Emergency Department. We are available 24 hours a day. JERAD TRACY has been given the following list of patient education materials, prescriptions andfollow-up instructions: Follow-up Instructions: In the event that this physician does not participate in your insurance network, please consult with your insurance company to find a nearby participating provider. Patient Education Materials: A MESSAGE TO ALL PATIENTS REGARDING OPIOIDS PRESCRIPTION OPIOIDS: WHAT YOU NEED TO KNOW Prescription opioids can be used to help relieve nchyuvca-mz-eqqeql pain and are often prescribed following a [...] guidance from the Food and Drug Administration (www.fda.gov/Drugs/ResourcesForYou). ??? Visit www.cdc.gov/drugoverdose to learn about the risks of opioids abuse and overdose. ??? If you believe you may be struggling with addiction, tell your health childcare aide and askfor guidance or call [facility]???S National Helpline at 3-050-032-VZGG. v Source: US Department of Health and Human Services/Center for Disease Control & Prevention [facility] (more content not included)...[facility] Clinical Summaryon [id number] Clinical SummaryED Clinical Summary [place] [id number] ED Clinical Summary Person Information Name: JERAD TRACY/[facility] Age: 49 Years : 1975 Sex: Female Language: Malagasy PCP: MARLEE FITZPATRICK MD Marital Status: Phone: Visit Id: Visit Reason: Ankle injury - Minor; Leg injury - Minor; FALL, LEFT LEG PAIN, BACK PAIN Speciality: Acuity: 4 Enc Type: Emergency Med Service: Emergency Arrival: 04/13/2024 14:07:07 Discharge: 04/13/2024 15:17:01 LOS: 000 01:10 Checkin: 04/13/2024 14:07:07 Checkout: 04/13/2024 15:17:01 Dispo Type: Home (Routine DC) EVENTS: Event Name Event Status Request Date/Time Start Date/Time Complete Date/Time Arrive Complete 04/13/2024 14:07:07 04/13/2024 14:07:07 04/13/2024 14:07:07 Document Home Meds Request 04/13/2024 14:07:07 Triage Complete 04/13/2024 14:07:07 04/13/2024 14:14:08 04/13/2024 14:14:08 Bed Assign Complete 04/13/2024 14:11:05 04/13/2024 14:11:05 04/13/2024 14:11:05 Dr Exam Complete 04/13/2024 14:11:05 04/13/2024 14:14:35 04/13/2024 14:14:35 RN Exam Complete 04/13/2024 14:11:05 04/13/2024 14:36:35 04/13/2024 14:36:35 Registration Complete 04/13/2024 14:14:35 04/13/2024 14:17:45 04/13/2024 14:17:45 Dr Exam Complete 04/13/2024 14:14:59 04/13/2024 14:14:59 04/13/2024 14:14:59 Reg Complete Request 04/13/2024 14:17:45 Reg Bed Request Complete 04/13/2024 14:17:45 04/13/2024 14:17:45 04/13/2024 14:17:45 Meds Admin Complete 04/13/2024 14:32:27 04/13/2024 14:35:31 X-Ray Complete 04/13/2024 14:32:27 04/13/2024 14:32:56 04/13/2024 14:51:39 Wet Read Request 04/13/2024 14:51:39 Discharge Complete 04/13/2024 15:13:47 04/13/2024 15:17:05 04/13/2024 15:17:05 Transfer Complete 04/13/2024 15:17:05 04/13/2024 15:17:05 04/13/2024 15:17:05 ADDRESS: [place] [id number] PHYS DOC NOTES: MEDICAL INFORMATION: Prescriptions Given: [facility] [id number], [address] [id number], [phone] acetaminophen-oxycodone (acetaminophen-oxycodone 325 mg-5 mg Tab) 1 Tablets By Mouth every 6 hours as needed for pain for 3 Days. Refills: 0. Medications to Continue with No Changes Other Medications azithromycin (azithromycin 250 mg Tab) 250 Milligram By Mouth As Directed. Take two tabs by mouth on day one, then one tab daily. Refills: 0. cyclobenzaprine (cyclobenzaprine 10 mg Tab) 1 Tablets By Mouth 3 times a day as needed for spasm. Refills: 0. cyclobenzaprine (cyclobenzaprine 10 mg Tab) 1 Tablets By Mouth 3 times a day as needed for spasm. Refills: 0. cyclobenzaprine (cyclobenzaprine 10 mg Tab) [...] and 12 hours off daily. Refills: 0. naproxen (Naprosyn 500 mg Tab) 1 Tablets By Mouth 2 times a day as needed for pain. Refills: 0. ondansetron (Zofran 4 mg Tab) [...] day. Refills: 0. PATIENT EDUCATION INFORMATION: Instructions: Knee Effusion, Drao-bt-Sbzv; Knee Sprain, Adult; Ankle Sprain Follow up: With: Address: When: MARLEE FITZPATRICK [address] [place] [address] [employer] (1) In 3 days 04/16/2024 Comments: Call Dr for diagnosis based follow up DIAGNOSIS: Contusion of left knee; Right ankle sprainMichelet Huang Medical CenterED Note-Physicianon [id number] Note-PhysicianED Note-Physician Basic Information Time Seen: Landon Tidwell PA-C 04/13/2024 14:14 Chief Complaint fall on ice. left knee and rt ankle pain History of Present Illness 49-year-old female reports to the emergency department with complaints of left knee and left ankle pain. Reports that she slipped on the ice. Reports that she did hurt her left knee which is hurting more. Reports that her right knee gave out which caused her to fall. States that she is not any blood thinners. She does mention that she is having a malpractice case against her spine doctor. She denies any back injury. Denies hitting her head or any loss of consciousness. Review of Systems No other aggravating or relieving factors no other associated symptoms no other prior treatments orcomplaints. Family: Reviewed and noncontributory Social: lives at home Review of systems negative unless otherwise specified in the HPI. Physical Exam Vitals & Measurements T: 36.4 ???C(Oral) HR: 95(Peripheral) RR: 18 BP: 166/79 SpO2: 100% HT: 160 cm WT: 120 kg BMI: 46.88 General: The patient appears well and in no apparent distress. Patient is resting comfortably in chair. Afebrile Skin: Warm, dry, no pallor noted. Abrasion located on the lateral aspect of left knee. Head: Normocephalic, atraumatic Neck: No JVD Eye: PERRLA, EOMI ENT: Moist mucus membranes Cardiovascular: Regular rate. normal peripheral perfusion. Pedal pulses +2 bilaterally Respiratory: No respiratory distress. no accessory muscle use. no obvious audible wheezing Chest Wall: no deformity Musculoskeletal: normal ROM, no deformity,. There is normal range of motion of the left knee, with mild swelling noted. There is no range of motion of right ankle, with no swelling identified. GI: No obvious distention Neurological: A&O. moves all extremities equal strength and symmetry Psychiatric: Cooperative and appropriate Medical Decision Making MEDICAL DECISION MAKING Number and Complexity of Problems Differential Diagnosis: [facility] Data External documents reviewed: [] My EKG interpretation: [] My CT interpretation: [] My X-ray interpretation: Reviewed My Ultrasound interpretation: [] Decision rules/scores evaluated: [] Discussed with: [] Treatment and Disposition ED Course: 49-year-old female reports emergency department with complaints of a fall. Reports fell after slipping on ice. Reports that her right knee gave out. Complains of right ankle and left knee pain. Left knee does have small abrasion with some mild swelling. No other acute injury seen. Due toconcerns we did do x- rays. X-rays were negative for any acute fracture. Continue to rest, ice, compr ess, and elevate your affected joint to relieve inflammation and swelling. Follow-up with your primary care provider in 3 to 5 days. If symptoms worsen, do not improve, or new symptoms arise please report back to emergency department for further evaluation. The patient was understanding and agreeable to plan moving forward. Shared decision making: [] Code status: [] Assessment/Plan Contusion of left knee (S80.02XA: Contusion of left knee, initial encounter) Right ankle sprain (S93.401A: Sprain of unspecified ligament of right ankle, initial encounter) Orders: acetaminophen-oxycodone, 1 tab(s), Oral, q6hr for pain for 3 day(s), 8 tab(s), Refill(s) 0, [id number], 160, cm, 04/13/24 14:14:00 EST, Height/Length Dosing, 120, kg, 04/13/24 14:14:00 EST, Weight Dosing acetaminophen-oxycodone, 1 tab(s), Tab, Oral, Once, Stop date 04/13/24 14:31:00 EST, STAT, Start date 04/13/24 14:31:00 EST XR Ankle 3+ Views Right XR Knee Complete 4+ Views Left Medications Administered Given acetaminophen-oxycodone 325 mg-5 mg Tab, 1 tab(s), Oral Disposition Plan Patient Discharge Condition stable Discharge Disposition to home Discharge Prescription List Prescriptions acetaminophen-oxycodone 325 mg-5 mg Tab, 1 tab(s), Oral, q6hr, PRN Follow-up With When Contact Information MARLEE FITZPATRICK In 3 days 04/16/2024 EST [address] [place] [address]- [facility] (1) Additional Instructions: Call Dr for diagnosis based follow up Patient Education Knee Effusion, Mojk-wq-Ydxh Knee Sprain, Adult Ankle Sprain Attestation Patient seen and evaluated by the physician construction assistant. Attending physician was present in the emergency department and supervised care. This visit was performed by both the physician and an APC. I performed all aspects of the MDM as documented. This report was transcribed using voice recognition software. Every effort was made to ensure accuracy, however, inadvertently computerized bill recapitulation clerk mistakes may be present. Appropriate healthcare PPE was used in evaluating this patient. The patient was placed in a mask. The healthcare provider was wearing mask, gloves, and utilizing proper hand hygiene. All equipment was properly cleansed. I performed a substantive p (more content not included)...[facility] HospitalComment on above:Result Comment: Electronically Signed By: Landon Tidwell PA-C\.br\Date and Time Signed: 04/13/2517:27 EST\.br\Electronically Co-Signed By: Balbina Bryant M.D..br\Date and Time Co-Signed: 04/13/24 18:48 ESTED Patient Summaryon [id number] Patient SummaryED Patient Summary [place] [address] Patient Discharge Instructions Person Information Name: JERAD TRACY Age: 49 Years Arrival Date: 04/13/2024 14:07:07 Discharge Diagnosis: Contusion of left knee; Right ankle sprain Primary Care Physician: AMARI SOTO, MARLEE Rausch Provider Information Primary Provider: Annette Watkins, Balbina Sparks Advanced Dietetic Intern:Landon Tidwell PA-C The exam and treatment you received in the Emergency Department were for an urgent problem and are not intended as complete care. It is important that you follow up with a doctor, nurse practitioner,or physician???s construction assistant for ongoing care. If your symptoms become worse or you do not improve asexpected and you are unable to reach your usual health care provider, you should return to the Emergency Department. We are available 24 hours a day. JERAD TRACY has been given the following list of patient education materials, prescriptions andfollow-up instructions: Follow-up Instructions: With: Address: When: MARLEE FITZPATRICK [address] [place] [address] Business (7) In 3 days 04/16/2024 Comments: Call Dr for diagnosis based follow up In the event that this physician does not participate in your insurance network, please consult with your insurance company to find a nearby participating provider. Patient Education Materials: Knee Effusion, Waif-ya-Jjrk; Knee Sprain, Adult; Ankle Sprain A MESSAGE TO ALL PATIENTS REGARDING OPIOIDS PRESCRIPTION OPIOIDS: WHAT YOU NEED TO KNOW Prescription opioids can be used to help relieve gczrqkbn-td-eihety pain and are often prescribed following a [...] guidance from the Food and Drug Administration (www.fda.gov/Drugs/ResourcesForYou). ??? Visit www.cdc.gov/drugoverdose to learn about the risks of (more content not included)...Newark HospitalXR Ankle 3+ Views Righton [id number] Ankle 3+ Views RightExam Date/Time: 04/13/2024 14:51 EST Reason for Exam: Fall Report IMPRESSION: NO DISPLACED FRACTURE OR SIGNIFICANT POSTTRAUMATIC COMPLICATION IDENTIFIED. EXAM: XR Ankle 3+ Views Right DATE: 04/13/2024 2:32 PM CLINICAL HISTORY: Pain after falling. COMPARISON: None available. TECHNIQUE: AP, lateral, mortise and medial oblique radiographs of the right ankle were obtained. FINDINGS: There is no acute fracture, dislocation, worrisome bone destruction, radiodense foreign bodies, or other acute findings identified. The visualized joint spaces and ankle mortise are intact. Soft tissue swelling is noted about the ankle. Mild to moderate degenerative changes and a moderate-sized plantar calcaneal spur are noted. Ordering Provider: Landon Tidwell FINAL REPORT Dictated: 04/13/2024 3:23 pm Terrance Hendrickson MD Signed (Electronic Signature): 04/13/2024 3:23 pm Signed by: Terrance Hendrickson MD Transcribed by: KIERRA Technologist: DEREK Technical Comments Radiation Dose: Ka,r in mGy = na DAP = naNorRegency Hospital ToledoXR Knee Complete 4+ Views Lefton [id number] Knee Complete 4+ Views LeftExam Date/Time: 04/13/2024 14:51 EST Reason for Exam: Fall Report IMPRESSION: NO DISPLACED FRACTURE OR SIGNIFICANT POSTTRAUMATIC COMPLICATION IDENTIFIED. EXAM: XR Knee Complete 4+ Views Left DATE: 04/13/2024 2:32 PM CLINICAL HISTORY: Pain after falling. COMPARISON: 11/24/2023. TECHNIQUE: AP, lateral, internal and external oblique radiographs of the left knee were obtained. FINDINGS: There is no fracture, sizable joint effusion, significant degenerative changes, dislocation, worrisome bone destruction, radiodense foreign bodies, or other posttraumatic complication identified. Ordering Provider: Landon Tidwell FINAL REPORT Dictated: 04/13/2024 3:21 pm Terrance Hendrickson MD Signed (Electronic Signature): 04/13/2024 3:21 pm Signed by: Terrance Hendrickson MD Transcribed by: KIERRA Technologist: DEREK Technical Comments Radiation Dose: Ka,r in mGy = na DAP = naNormalFisher Adena Health System CenterED Clinical Summaryon [id number] Clinical SummaryED Clinical Summary [address] [address] ED Clinical Summary Person Information Name: JERAD TRACY [place] Age: 49 Years : 1975 Sex: Female Language: Malagasy PCP: MARLEE FITZPATRICK MD Marital Status: Phone: Visit Id: Visit Reason: Back pain; LOWER BACK PAIN Speciality: Acuity: 4 Enc Type: Emergency Med Service: Emergency Arrival: 04/12/2024 08:58:54 Discharge: 04/12/2024 09:15:49 LOS: 000 00:17 Checkin: 04/12/2024 08:58:54 Checkout: 04/12/2024 09:15:49 Dispo Type: Home (Routine DC) EVENTS: Event Name Event Status Request Date/Time Start Date/Time Complete Date/Time Arrive Complete 04/12/2024 08:58:54 04/12/2024 08:58:54 04/12/2024 08:58:54 Document Home Meds Request 04/12/2024 08:58:54 Triage Complete 04/12/2024 08:58:54 04/12/2024 09:03:19 04/12/2024 09:03:19 Bed Assign Complete 04/12/2024 09:00:21 04/12/2024 09:00:21 04/12/2024 09:00:21 Dr Exam Complete 04/12/2024 09:00:21 04/12/2024 09:01:15 04/12/2024 09:01:15 RN Exam Complete 04/12/2024 09:00:21 04/12/2024 09:04:14 04/12/2024 09:04:14 Registration Complete 04/12/2024 09:01:15 04/12/2024 09:01:26 04/12/2024 09:04:44 Reg Complete Request 04/12/2024 09:04:44 Reg Bed Request Complete 04/12/2024 09:04:44 04/12/2024 09:04:44 04/12/2024 09:04:44 Meds Admin Complete 04/12/2024 09:09:25 04/12/2024 09:11:32 Discharge Complete 04/12/2024 09:12:57 04/12/2024 09:15:54 04/12/2024 09:15:54 Transfer Complete 04/12/2024 09:15:54 04/12/2024 09:15:54 04/12/2024 09:15:54 ADDRESS: [address] [place] [address] [address] [place] [id number] PHYS DOC NOTES: MEDICAL INFORMATION: Prescriptions Given: Medications to Continue Taking That Have Changed [id number], [address], [place] [id number], [phone] START: cyclobenzaprine (cyclobenzaprine 10 mg Tab) 1 Tablets By Mouth 3 times a day as needed for spasm. Refills: 0. Other Medications START: cyclobenzaprine (cyclobenzaprine 10 mg Tab) 1 Tablets By Mouth 3 times a day as needed for spasm. Refills: 0. START: cyclobenzaprine (cyclobenzaprine 10 mg Tab) 1 Tablets By Mouth 3 times a day as needed for spasm. Refills: 0. Medications to Continue with No Changes Other Medications azithromycin (azithromycin 250 mg Tab) 250 Milligram By Mouth As Directed. Take two tabs by mouth on day one, then one tab daily. Refills: 0. dicyclomine (Bentyl 10 mg Cap) [...] and 12 hours off daily. Refills: 0. naproxen (Naprosyn 500 mg Tab) 1 Tablets By Mouth 2 times a day as needed for pain. Refills: 0. ondansetron (Zofran 4 mg Tab) [...] day. Refills: 0. PATIENT EDUCATION INFORMATION: Instructions: Muscle Strain Follow up: With: Address: When: MARLEE FITZPATRICK [address] [place] [phone] [facility] (1) In 3 days 04/15/2024 Comments: Return to the emergency room if your pain gets worse, bowel or bladder incontinence, numbness/tingling in the saddle/groin area or any new symptoms. DIAGNOSIS: 1:Muscle strain; 2:Lower back painMichelet Huang Medical CenterED Note-Physicianon [id number] Note-PhysicianED Note-Physician Basic Information Time Seen: Balbina Bryant M.D. 04/12/2024 09:01 Chief Complaint pt reports low back pain, said she slipped the other day, did not fall but tweked her back. History of Present Illness The patient is a 49-year-old female past medical history of chronic lower back pain who presented to the emergency room with lower back pain. The patient states 2 days ago she slipped on ice and twisted her back. The patient states she did not fall to hit her back. The patient points to the left lower lumbosacral region for the pain. The pain is worse with movement. She denies any bowelor bladder incontinence. Denies any saddle paresthesia. The patient denies any weakness on extremities. The patient denies any abdominal pain. She denies any other associated symptoms. Review of Systems Additional ROS info: Except as noted in the above Review of Systems and in the History of Present Illness all other systems have been reviewed and are negative or noncontributory. Physical Exam Vitals & Measurements HR: 103(Peripheral) RR: 20 BP: 173/105 SpO2: 99% HT: 160 cm WT: 120.4 kg BMI: 47.03 General: alert, no acute distress Skin: warm, dry Head: no trauma, normocephalic Neck: Trachea midline, no tenderness, supple Eye: normal conjunctiva, sclera clear Cardiovascular: regular rate and rhythm Respiratory: Lungs CTA, respirations non labored, breath sounds equal Gastrointestinal: soft, non distended, no tenderness Back: Mild tenderness of the left lumbosacral paraspinous muscle. No vertebral point tenderness., Normal ROM, straight leg raising negative bilaterally, patellar reflexes equal bilaterally. Extremities: no deformity, no trauma Neurological: Alert and oriented, motor strength equal & normal bilaterally, sensation equal & normal bilaterally, speech normal, no focal neuro deficits Psychiatric: cooperative, affect appropriate for age Medical Decision Making MEDICAL DECISION MAKING Number and Complexity of Problems Differential Diagnosis: [] [facility] Data External documents reviewed: [] My EKG interpretation: [] My CT interpretation: [] My X-ray interpretation: [] My Ultrasound interpretation: [] Decision rules/scores evaluated: [] Discussed with: [] Treatment and Disposition ED Course: The patient presented with lower back pain. More likely she strained the muscles of lower back. She has no vertebral point tenderness. The patient did not fall. She has no signs or symptoms of cauda equina syndrome. The patient was given Percocet in the emergency room. She does have Naprosyn at home. Will discharge patient home with prescription for Flexeril and she will continue the Naprosyn. She is instructed to return to the emergency room if her pain gets worse, bowel or bladder incontinence, saddle paresthesia or any new symptoms. Shared decision making: Patient Code status: [] Assessment/Plan 1. Muscle strain (T14.8XXA: Other injury of unspecified body region, initial encounter) 2. Lower back pain (M54.50: Low back pain, unspecified) Orders: acetaminophen-oxycodone, 1 tab(s), Tab, Oral, Once, Stop date 04/12/24 9:08:00 EST, STAT, Start date 04/12/24 9:08:00 EST cyclobenzaprine, 10 mg = 1 tab(s), Oral, TID, PRN for spasm, # 20 tab(s), Refills(s) 0, Pharmacy: [id number], 160, cm, 04/12/24 9:03:00 EST, Height/Length Dosing, 120.4, kg, 04/12/24 9:03:00 EST, Weight Dosing Medications Administered Given Percocet 5 mg-325 mg oral tablet, 1 tab(s), Oral Disposition Plan Patient Discharge Condition Stable Discharge Disposition Discharge home Discharge Prescription List Prescriptions cyclobenzaprine 10 mg Tab, 10 mg= 1 tab(s), Oral, TID, PRN Follow-up With When Contact Information MARLEE FITZPATRICK In 3 days 04/15/[address] [place] [phone]- Business (1) Additional Instructions: Return to the emergency room if your pain gets worse, bowel or bladder incontinence, numbness/tingling in the saddle/groin area or any new symptoms. Patient Education Muscle Strain Problem List/Past Medical History Ongoing Arthritis of [...] Medications Inpatient No active inpatient medications Home azithromycin 250 mg Tab, 250 mg, Oral, As Directed Bentyl 10 mg Cap (more content not included)...[facility] Comment on above:Result Comment: Electronically Signed By: Annette Watkins, Blabina Sparks\.rufino\Date and Time Signed: 04/12/2508:20 DARYN Patient Summaryon [id number] Patient SummaryED Patient Summary [place] [id number] Patient Discharge Instructions Person Information Name: JERAD TRACY Age: 49 Years Arrival Date: 04/12/2024 08:58:54 Discharge Diagnosis: 1:Muscle strain; 2:Lower back pain Primary Care Physician: MARLEE FITZPATRICK MD Provider Information Primary Provider: Balbina Bryant M.D. Advanced Dietetic Intern:None The exam and treatment you received in the Emergency Department were for an urgent problem and are not intended as complete care. It is important that you follow up with a doctor, nurse practitioner,or physician???s construction assistant for ongoing care. If your symptoms become worse or you do not improve asexpected and you are unable to reach your usual health care provider, you should return to the Emergency Department. We are available 24 hours a day. JERAD TRACY has been given the following list of patient education materials, prescriptions andfollow-up instructions: Follow-up Instructions: With: Address: When: MARLEE KOROMAN [address] [place] [address] [facility] ([employer] In 3 days 04/15/2024 Comments: Return to the emergency room if your pain gets worse, bowel or bladder incontinence, numbness/tingling in the saddle/groin area or any new symptoms. In the event that this physician does not participate in your insurance network, please consult with your insurance company to find a nearby participating provider. Patient Education Materials: Muscle Strain A MESSAGE TO ALL PATIENTS REGARDING OPIOIDS PRESCRIPTION OPIOIDS: WHAT YOU NEED TO KNOW Prescription opioids can be used to help relieve dwnpocwa-ma-whfovb pain and are often prescribed following a [...] guidance from the Food and Drug Administration (www.fda.gov/Drugs/ResourcesForYou). ??? Visit www.cdc.gov/bibiana (more content not included)...[facility] [id number] HEALTHHNO ID: [id number] Author: LEO TAMAYO RT(R) Service: Radiology Author Type: Technologist Type: Allied Health Filed: 03/30/2024 01:19 Note Text: Radiology Service Progress Note PATIENT NAME: Jerad Tracy DATE OF SERVICE: March 30, 2024 TIME: 1:18 AM PATIENT IDENTITY VERIFICATION COMPLETED USING TWO (2) IDENTIFIERS: Name and Date of confirmed by patient verbally and Name and Date of confirmed by identification band. FALL SCREENING: Has the patient had 2 falls in the last year or 1 fall with injury or currently using an Ambulatory Assistive Device (Walker, Cane, Wheelchair, Crutches, etc.)? Emergency Room Patient: Screened in ED PATIENT GENDER DATA: Female. status: : No status: NO. PATIENT RELEVANT IMPLANT DATA REVIEWED: Yes PATIENT PRESENTS WITH AN IMPLANTABLE OR ATTACHED ADMINISTRATIVE CLERK: No RADIOLOGY DEPARTMENT: MR; Exam(s) Completed: Spine: Lumbar spine PERIPHERAL IV DATA: Inpatient: see LDA documentation SIGNED BY: RT Sondra(R) March 30, 2024 1:18 AMNormalRegency Hospital Cleveland EastLTon 03-30-2024 CONSULTHNO ID: [id number] Author: JAROCHO TRAMMELL MD Service: Neurosurgery Author Type: Physician Type: Consults Filed: 04/14/2024 16:47 Note Text: ORTHOPAEDIC SPINE SURGERY CONSULTATION NOTE Admission Date: 03/29/2024 Consult Date: 03/30/2024 Consulting Service: ED Reason for Consult: Back pain and LLE Chief complaint: back pain History of present illness: Jerad Tracy is a 49 year old female for whom the orthopaedic spine surgery service has been consulted for evaluation and recommendations regarding the above. Jerad Tracy's past medical history is significant for L4-L5 Discectomy 02/06/2024, Bipolar, Chronic pain, . Briefly, 49F at ED for LLE numbness s/p 02/06/24 L4-L5 Discectomy by Judah Woodard @ . She has had multiple ED visits in the last 2 weeks for similar complaints. She last saw index surgeon on 03/10. Reports her car ride to [employer] exacerbated her back pain. States she has numbness throughout the left leg. Denies antecedent trauma, balance/dexterity issues, numbness/tingling in hands, urinary/fecal incontinence or n/v/sob/cp. Past Medical History No past medical history on file. Past Surgical History No past surgical history on file. Social History Family History Not contributory to consult. Review of Systems See hPI Physical Exam BP 139/63 Pulse 81 Temp 37.1 ?C (98.7 ?F) (Oral) Resp 18 SpO2 95% AANDOx3, NAD Breathing comfortably at rest RRR to peripheral palpation CN grossly intact Spine Exam Upper Extremities UE Shoulder Abd Elbow Flex Elbow Ext Wrist Ext Wrist Flex Siding Installer HI R 5 5 5 5 5 5 5 L 5 5 5 5 5 5 5 Sensation to light touch intact to bilateral upper extremities +2 radial pulse Lower Extremities LE Hip Flex Knee Ext Plantarflex Dorsiflex EHL R 5 5 5 5 5 L 5 5 5 5 5 Sensation to light touch intact to bilateral lower extremities +2 dorsalis pedis pulse Reflexes: Symmetric BUE and BLE (biceps, knee), 2+ throughout No Babinski or Kebede's noted No clonus JARAD deferred A secondary survey was completed to the fullest extent possible given the patient's clinical condition. This survey revealed no explicit pain or tenderness in the long bones and major joints of the uninjured upper and lower limbs. INVESTIGATIONS Imaging Studies CT: Postoperative changes of LEFT L4-5 laminotomy MRI: Nonspecific postoperative changes of left L4-5 laminotomy Lab Results Serum Inflammatory Markers Test 03/30/2024 WBC WBC (k/uL) Date Value 03/29/2024 9.07 ESR Sed Rate, Westergren (mm/hr) Date Value 03/29/2024 22 (H) CRP CRP (mg/dL) Date Value 03/29/2024 <0.3 Sodium (mmol/L) Date Value 03/29/2024 141 Potassium (mmol/L) Date Value 03/29/2024 3.9 Chloride (mmol/L) Date Value 03/29/2024 107 CO2 (mmol/L) Date Value 03/29/2024 21 (L) BUN (mg/dL) Date Value 03/29/2024 15 Creatinine (mg/dL) Date Value 03/29/2024 0.70 WBC (k/uL) Date Value 03/29/2024 9.07 Hemoglobin (g/dL) Date Value 03/29/2024 13.5 Hematocrit (%) Date Value 03/29/2024 40.6 Platelet Count (k/uL) Date Value 03/29/2024 330 Assessment/Plan ASSESSMENT Assessment: 49 year old female s/p L4-L5 discectomy presented to ED for Back Pain with LLE weakness Relevant PMH: L4-L5 Discectomy 02/06/2024, Bipolar, Chronic pain, PLAN - No acute surgical spine intervention indicated at this time - Pain control per primary; recommend Toradol + muscle relaxer - Follow up with index surgeon in 1-2 weeks Riley Gotti MD PGY-2 Orthopaedic Surgery [facility] [id number] For [facility] [place] floor related issues or questions during [place]days, [place] [phone] At all other times, or if urgent, please page the orthopaedic on-call resident at: [phone]) for [facility] patients [phone] for [facility] patients [phone] for [facility] patients [phone] for [facility] patients If no response from 1st page within 25 minutes, please contact [facility] WO/W IVCONon [phone] LUMBAR SPINE WO/W IVCON* * *Final Report* * * DATE OF EXAM: Mar 30 2024 1:22AM QBM 0304 - MRI LUMBAR SPINE WO/W IVCON / PROCEDURE REASON: Post operative complication suspected * * * * Physician Interpretation * * * * EXAMINATION: MRI LUMBAR SPINE WO/W IVCON CLINICAL HISTORY: Post operative complication suspected TECHNIQUE: Routine lumbosacral spine MR protocol without and with intravenous gadolinium. MQ: [id number]_3 COMPARISON: CT lumbar spine 03/29/2024. RESULT: Counting reference: Lumbosacral junction. For the purposes of this report, L4-5 is considered the level of the iliac crest and assume there are 5 lumbar-type vertebrae. Anatomic variant: None. Localizer images: No significant findings. Alignment: Alignment is anatomic. Bone marrow signal/fracture: No evidence of pathologic marrow infiltration. Postoperative changes of left L4-5 laminotomy. Nonspecific fluid at the laminotomy cavity measuring 1.3 x 0.9 x 0.6 cm. Conus: The conus is within normal limits of signal intensity and morphology. Paraspinal soft tissues: Nonspecific fluid collection within the left posterior subcutaneous fat measuring 4.3 x 2.9 x 6.9 cm. Lower thoracic spine: Visualized lower thoracic canal and foramina are patent. L1-L2: Canal and foramina are patent. L2-L3: Canal and foramina are patent L3-L4: Canal and foramina are patent L4-L5: Mild-moderate intervertebral disc height loss with slight retrolisthesis. Broad disc bulge with left subarticular disc protrusion. Left lateral recess stenosis. Mild bilateral foraminal stenosis. No significant central spinal canal stenosis. L5-S1: Canal and foramina are patent Sacrum and iliac wings: The visualized sacrum and iliac wings are within normal limits. IMPRESSION: 1. Nonspecific postoperative changes of left L4-5 laminotomy. Fluid at the laminotomy cavity and within the left posterior subcutaneous fat may reflect evolving hematoma, seroma, or infection in the recently postoperative setting. 2. Spondylolisthesis at L4-5 as described above. Broad disc bulge with left subarticular disc protrusion resulting in left lateral recess stenosis. Anatomic Lumbar Variant: None. L4-5 is considered the level of the iliac crest and assume there are 5 lumbar-type vertebrae. Stonemason: GIA Transcribe Date/Time: Mar 30 2024 1:34A Dictated by : SIRISHA RAMAN MD This examination was interpreted and the report reviewed and electronically signed by: SIRISHA RAMAN MD on Mar 30 2024 1:42AM EST [id number] Health Kings Mills HospitalBasaint joseph hospital metabolic 2000 panel on 66-29-7936Zwueu gap [Moles/Vol]13 mmol/LNormal8-15[facility] Comment on above:Order Comment: Specimen Type: BLOOD SPECIMENOrdering Facility: [facility] Address:[address] [place] [address] Performed By: #### 1988-5, 79466-0, 49711-3 ####[facility] LABCLIA [id number] [facility] D73F[place]OUGDAJVEV[place], [place] [address] [place] AMERICACalcium [Mass/Vol]8.6 mg/dLNormal8.5-10.2CGalion Hospital Comment on above:Order Comment: Specimen Type: BLOOD SPECIMENOrdering Facility: [facility] Address:[address] [place] [address] Performed By: #### 1987-07, , ####[facility] LABCLIA [id number] [place] [id number] [place] AMERICAChloride [Moles/Vol]107 mmol/EEavxka21-605EalbjbeowMercy Health Kings Mills Hospital Comment on above:Order Comment: Specimen Type: BLOOD SPECIMENOrdering Facility: [facility] Address:[address] [place] [address] Performed By: #### 1987-07, , ####[facility] LABCLIA [id number], [place] [address] [place] AMERICACO2 [Moles/Vol]21 mmol/YItd04-33LgsatveenMercy Health Kings Mills HospitalComment on above:Order Comment: Specimen Type: BLOOD SPECIMENOrdering Facility: [facility] Address:[address] [place], [place] [address]Performed By: #### 1987-07, , ####[facility] LABIA [id number] [place]IL[place] [id number] [place] Creatinine [Mass/Vol]0.70 mg/dLNormal0.58-0.96[facility] HospitalComment on above:Order Comment: Specimen Type: BLOOD SPECIMENOrdering Facility: [facility] Address:[address] [place] [address] Performed By: #### 1987-07, , ####[facility] LABIA [id number] [place] [id number] [place] AMERICACreatinine and Glomerular filtration rate.predicted panel (S/P/Bld)108 mL/min/1.73m???Normal>=60[facility] ClevelandComment on above:Order Comment: Specimen Type: BLOOD SPECIMENOrdering Facility: [facility] Address:[address] [place] [address] 19853Bndqui Comment: Estimated Glomerular Filtration Rate (eGFR) is calculated using the 2020 CKD-EPI cre atinine equation. This equation utilizes serum creatinine, sex, and age as parameters. The creatinine assay has traceable calibration to isotope dilution- mass spectrometry. Refer to KDIGO guidelines for clinical interpretation. In patients with unstable renal function, e.g. those with acute kidney injury, the eGFR may not accurately reflect actual GFR.Performed By: #### 1987-, , 10553-0 ####[facility] [id number] [place]IL[place] [id number] [place] AMERICAGlucose [Mass/Vol]110 mg/dLHigh 74-99[facility] on above:Order Comment: Specimen Type: BLOOD SPECIMENOrdering Facility: [facility] Address:[address] [place], [place] [address]Result Comment: The [place] Diabetes Association (ADA) provides guidance for cutoff [...] Standards of Medical Care in Diabetes 2016, [place] [employer]. Diabetes Care. 2016.39(Suppl 1).Performed By: #### 1987-, , 52909-6 ####[facility] [id number] [address] [place] AMERICAPotassium [Moles/Vol] 3.9 mmol/LNormal3.7-5.1CToledo Hospital on above:Order Comment: Specimen Type: BLOOD SPECIMENOrdering Facility: [facility] Address:[address] [place], [place] [address]Performed By: #### 1987-07, , ####[facility] LABIA [id number], [place] [address] [place] AMERICASodium [Moles/Vol]141 mmol/L Rtczvi751-942BoiqjhdvqSouthwest General Health Center on above:Order Comment: Specimen Type: BLOOD SPECIMENOrdering Facility: [facility] Address:[address] [place], [place] [address]Performed By: #### 1987-07, , ####[facility] LABIA [id number], [place] [address] [place] AMERICAUrea nitrogen [Mass/Vol]15 mg/dL Normal7-21[facility] on above:Order Comment: Specimen Type: BLOOD SPECIMENOrdering Facility: [facility] Address:[address] [place], [place] [address]Performed By: #### 1987-07, , ####[facility] HOSPITALIA [id number], [place] [address] [place] AMERICACBC W Auto Differential panel (Bld)on 00-54-3034Berzmlvak (Bld) [#/Vol]10*3/uLNormal<0.11CToledo Hospital on above:Order Comment: Specimen Type: BLOOD SPECIMENOrdering Facility: [facility] Address:[address] [place], [place] [address]Performed By: #### 14110-2, 4537-7 ####[facility] LABCLIA [id number] [place] [address] [place] AMERICABasophils/100 WBC (Bld)0.1 %NormalSouthwest General Health Center on above:Order Comment: Specimen Type: BLOOD SPECIMENOrdering Facility: [facility] Address:[address] [place], [place] [address]Performed By: #### 90838-2, 7 ####[facility] LABCLIA [id number] [place] [address] [place] AMERICADifferential cell count method Nom (Bld)AutoNormalCToledo Hospital on above:Order Comment: Specimen Type: BLOOD SPECIMENOrdering Facility: [facility] Address:[address] [place], [place] [address]Performed By: #### 03412- 8, 4536-09 ####[facility] LABCLIA [id number] [place] [address] [place] AMERICAEosinophils (Bld) [#/Vol]0.06 10*3/uLNormal<0.46[facility] on above:Order Comment: Specimen Type: BLOOD SPECIMENOrdering Facility: [facility] Address:[address] [place], [place] [address]Performed By: #### 09066- 8, 4536-09 ####[facility] LABCLIA [id number] [place] [address] [place] AMERICAEosinophils/100 WBC (Bld)0.7 %NormalSouthwest General Health Center on above:Order Comment: Specimen Type: BLOOD SPECIMENOrdering Facility: [facility] Address:[address] [place], [place] [address]Performed By: #### 73172-4, 4536-09 ####[facility] LABCLIA [id number] [place] [address] [place] AMERICAErythrocyte distribution width (RBC) [Ratio]14.4 %Byoylr77.5-15.0[facility] on above: Order Comment: Specimen Type: BLOOD SPECIMENOrdering Facility: [facility] Address:[address] [place], [place] [address]Performed By: #### 80960- 8, 4536-09 ####[facility] LABCLIA [id number] [address] [address] [place] AMERICAHematocrit (Bld) [Volume fraction]40.6 %Kzyese77.0-46.0[facility] on above:Order Comment: Specimen Type: BLOOD SPECIMENOrdering Facility: [facility] Address:[address] [place], [place] [address]Performed By: #### 18325- 8, 4537-7 ####[facility] LABIA [id number] [address] [place] [id number] [place] AMERICAHemoglobin (Bld) [Mass/Vol]13.5 g/nADpfwoy90.5-15.5CToledo Hospital on above: Order Comment: Specimen Type: BLOOD SPECIMENOrdering Facility: [facility] Address:[address] [place], [place] [address]Performed By: #### 60208- 8, 4537-7 ####[facility] LABIA [id number] [address] [place] [id number] [place] AMERICAImmature granulocytes (Bld) [#/Vol]0.03 10*3/uLNormal<0.10[facility] on above: Order Comment: Specimen Type: BLOOD SPECIMENOrdering Facility: [facility] Address:[address] [place], [place] [address]Performed By: #### 92060- 8, 4537-7 ####[facility] LABIA [id number] [address] [place] [id number] [place] AMERICAImmature granulocytes/100 WBC (Bld)0.3 %NormalSouthwest General Health Center on above: Order Comment: Specimen Type: BLOOD SPECIMENOrdering Facility: [facility] Address:[address] [place], [place] [address]Performed By: #### 06117- 8, 4537-7 ####[facility] LABIA [id number] [place] [address] [place] AMERICALymphocytes (Bld) [#/Vol]2.40 10*3/uLNormal1.00-4.00[facility] on above: Order Comment: Specimen Type: BLOOD SPECIMENOrdering Facility: [facility] Address:[address] [place], [place] [address]Performed By: #### 53488- 8, 4537-7 ####[facility] LABCLIA [id number] [address] [facility] [place] [address] [place] AMERICALymphocytes/100 WBC (Bld)26.5 %NormalSouthwest General Health Center on above:Order Comment: Specimen Type: BLOOD SPECIMENOrdering Facility: [facility] Address:[address] [place], [place] [address]Performed By: #### 37133-3, 4537-7 ####[facility] LABCLIA [id number] [address]ETH (RBC) [Entitic mass]30.0 pg Rzqcfp59.0-34.0[facility] on above:Order Comment: Specimen Type: BLOOD SPECIMENOrdering Facility: [facility] Address:[address] [place], [place] [address]Performed By: #### 03380-3, 4537-7 ####[facility] LABCLIA [id number] [facility] CENTERD [address]ETHC (RBC) [Mass/Vol]33.3 g/dL Nhdmwb45.5-36.0[facility] on above:Order Comment: Specimen Type: BLOOD SPECIMENOrdering Facility: [facility] Address:[address] [place], [place] [address]Performed By: #### 02747-6, 4537-7 ####[facility] LABCLIA [id number] [address] AVENUEDES[address]JGNRKIW, [place] [address] [place] AMERICAMCV (RBC) [Entitic vol]90.2 fL Nrqrno40.0-100.0[facility] on above:Order Comment: Specimen Type: BLOOD SPECIMENOrdering Facility: [facility] Address:[address] [place], [place] [address]Performed By: #### 97014-5, 7 ####[facility] LABCLIA [id number] [place] [address] [place] AMERICAMonocytes (Bld) [#/Vol]0.52 10*3/uLNormal<0.87[facility] on above:Order Comment: Specimen Type: BLOOD SPECIMENOrdering Facility: [facility] Address:[address] [place], [place] [address]Performed By: #### 88703-7, 7 ####[facility] LABCLIA [id number] [place] [address] [place] AMERICAMonocytes/100 WBC (Bld)5.7 % NormalSouthwest General Health Center on above:Order Comment: Specimen Type: BLOOD SPECIMENOrdering Facility: [facility] Address:[address] [place], [place] [address]Performed By: #### 71519-9, 7 ####[facility] LABCLIA [id number] [place] [address] [place] AMERICANeutrophils (Bld) [#/Vol]6.05 10*3/uLNormal1.45-7.50 [facility] on above:Order Comment: Specimen Type: BLOOD SPECIMENOrdering Facility: [facility] Address:[address] [place], [place] [address]Performed By: #### 67715-9, 4536-09 ####[facility] LABCLIA [id number] [place] [address] [place] AMERICANeutrophils/100 WBC (Bld)66.7 %NormalMercy Health Kings Mills Hospital Comment on above:Order Comment: Specimen Type: BLOOD SPECIMENOrdering Facility: [facility] Address:[address] [place] [address] Performed By: #### 99463-2, 4537-7 ####[facility] LABCLIA [id number] [place] [address] [place] Nucleated RBC (Bld) [#/Vol]10*3/uLNormal<0.01[facility] on above:Order Comment: Specimen Type: BLOOD SPECIMENOrdering Facility: [facility] Address:[address] [place] [address] Performed By: #### 17944-2, 4536-7 ####[facility] LABIA [id number] [place] [address] [place] Nucleated RBC/100 WBC (Bld) [Ratio]0.0 /100 WBCNormalCGalion Hospital Comment on above:Order Comment: Specimen Type: BLOOD SPECIMENOrdering Facility: [facility] Address:[address] [place] [address] Performed By: #### 13269-1, 4536-7 ####[facility] LABIA [id number] [place] [address] [place] Platelet mean volume (Bld) [Entitic vol]10.1 fLNormal9.0-12.7CToledo Hospital on above:Order Comment: Specimen Type: BLOOD SPECIMENOrdering Facility: [facility] Address:[address] [place], [place] [address]Performed By: #### 63745-9, 4536-7 ####[facility] LABIA [id number] [place] [address] [place] Platelets (Bld) [#/Vol]330 10*3/uSAsymyj239-991GhquuatbfSouthwest General Health Center on above:Order Comment: Specimen Type: BLOOD SPECIMENOrdering Facility: [facility] Address:[address] [place] [address] Performed By: #### 50647-5, 4537-7 ####[facility] LABCLIA [id number] [place] [address] [place] RBC (Bld) [#/Vol]4.50 10*6/uLNormal3.90-5.20[facility] on above:Order Comment: Specimen Type: BLOOD SPECIMENOrdering Facility: [facility] Address:[address] [place], [place] [address]Performed By: #### 42583-5, 4537-7 ####[facility] LABCLIA [id number] [address] STATES OF AMERICAWBC (Bld) [#/Vol]9.07 10*3/uLNormal3.70-11.00[facility] on above:Order Comment: Specimen Type: BLOOD SPECIMENOrdering Facility: [facility] Address:[address] [place], [place] [address]Performed By: #### 89785-1, 4537-7 ####[facility] LABCLIA [id number] [place] [address] [place] AMERICACRP SerPl-mCncon 75-87-1602CQC [Mass/Vol]mg/LNormal<0.9CToledo Hospital on above:Order Comment: Specimen Type: BLOOD SPECIMENOrdering Facility: [facility] Address:[address] [place], [place] [address]Performed By: #### 1988- 5, 89558-3, 55923-9 ####[facility] LABCLIA [id number] [place] [address] [place] AMERICACT LUMBAR SPINE WO IVCONon 03-06-5626PK LUMBAR SPINE WO IVCON* * *Final Report* * * DATE OF EXAM: Mar 29 2024 10:07PM [facility] 0508 - CT LUMBAR SPINE WO IVCON / PROCEDURE REASON: Back pain, history of L4-L5 surgery, fluid collection. Worsening low back pain/ * * * * Physician Interpretation * * * * EXAMINATION: CT LUMBAR SPINE WO IVCON CLINICAL HISTORY: 49 year old F with a past medical history of L4-L5 surgery (02/06/24), neuro stimulator placement and removal 2/2 to hematoma and infection (Oct 2023). Pain and symptoms initially improved after the surgery for about 3 weeks, however she did have return of her low back pain. She states that acutely today, she developed left leg weakness and decreased sensation. TECHNIQUE: Spiral, high resolution axial unenhanced images were obtained from the thoracolumbar junction to the sacrum with sagittal and coronal planar reconstructions. MQ: CTLSPWO_3 CT Radiation dose: Integrated Dose-Length Product (DLP) for this visit = 1451 mGy*cm. CT Dose Reduction Employed: mAs-kVp adjusted based on patient size-age COMPARISON: None. RESULT: Counting reference: Lumbosacral junction. For the purposes of this report, L4-5 is considered the level of the iliac crest and assume there are 5 lumbar-type vertebrae. Anatomic variant: None. Alignment: Alignment is anatomic. Bone marrow /fracture: Postoperative changes of LEFT L4-5 laminotomy, with soft tissue thickening in the operative bed likely representing postoperative granulation tissue and an associated small focus of gas. Moderate disc height loss and disc desiccation with vacuum phenomenon and sclerotic degenerative endplate changes at L4-5. Mild sclerotic degenerative endplate changes and vacuum phenomenon at L5-S1. No evidence of a lytic or blastic process in the visualized spine. No evidence of acute or chronic fracture. Paraspinal soft tissues: There is a 5.7 x 3.0 x 4.3 cm fluid collection with surrounding soft tissue thickening/stranding in the LEFT paramedian subcutaneous soft tissues overlying the spine at L3 level, likely postoperative seroma. Cholecystectomy clips. Lower thoracic spine: The visualized lower thoracic bony canal and foramina are patent. L1-L2: Canal and foramina are patent. L2-L3: Canal and foramina are patent L3-L4: Canal and foramina are patent L4-L5: Status post LEFT L4-5 laminotomy discussed above. Disc bulge with superimposed RIGHT subarticular disc protrusion. Moderate to severe RIGHT facet arthropathy and ligamentum flavum infolding. Mild canal stenosis and RIGHT subarticular stenosis with likely impingement of descending RIGHT L5 nerve root. Severe bilateral foraminal stenosis. L5-S1: Mild disc bulge. No canal stenosis. Severe bilateral facet arthropathy. Severe RIGHT and moderate LEFT foraminal stenosis. Sacrum and iliac wings: Degenerative changes along bilateral sacroiliac joints. Bilateral osteitis condensans ilii. IMPRESSION: Postoperative changes of LEFT L4-5 laminotomy, with granulation tissue in the operative bed with associated tiny focus of gas, favor degenerative in nature. RIGHT L4-5 subarticular disc protrusion with likely impingement of descending RIGHT L5 nerve root. Severe foraminal stenoses at bilateral L4-5 and RIGHT L5-S1. 5.7 cm fluid collection with surrounding soft tissue thickening/stranding in the LEFT paramedian subcutaneous soft tissues overlying the spine at L3 level, likely postoperative seroma. Anatomic Lumbar Variant: None. L4-5 is considered the level of the iliac crest and assume there are 5 lumbar-type vertebrae. Stonemason: [facility] HOSPITALMartha Transcribe Date/Time: Mar 29 2024 10:13P Dictated by : DEREJE GIRON MD This examination was interpreted and the report reviewed and electronically signed by: DEREJE GIRON MD on Mar 29 2024 10:30PM EST [id number]'s Hospital for Rehabilitation NOTEon [id number] NOTEHNO ID: [id number] Author: DIANE REYNA MD Service: Emergency Medicine Author Type: Resident Type: ED Notes Filed: 03/30/2024 07:50 Note Text: LG for AH 49F prior spinal surgery w/ placement/removal of neuro stim in 10/2023, spinal surgery in 01/2024 pw low back pain, LLE numbness/weakness x1d. Cannot extend L great toe. Multiple recent ED visits. Numbness new. Inflamm markers ok. CT showed post op seroma, concern for infxn, MRI pending, spine recs ED Course as of 03/30/24 0738 Diane Reyna's Documentation Mon Mar 30, 2024 0149 MRI LUMBAR SPINE WO/W IVCON IMPRESSION: 1. Nonspecific postoperative changes of left L4-5 laminotomy. Fluid at the laminotomy cavity and within the left posterior subcutaneous fat may reflect evolving hematoma, seroma, or infection in the recently postoperative setting. 2. Spondylolisthesis at L4-5 as described above. Broad disc bulge with left subarticular disc protrusion resulting in left lateral recess stenosis. Others' Documentation [place] Mar 29, 2024 1904 CBC: No leukocytosis, anemia, or thrombocytopenia. [NW] 1913 CRP wnl. [NW] 194 BMP: no FANY or anion gap. [NW] 2237 CT LUMBAR SPINE WO IVCON IMPRESSION: Postoperative changes of LEFT L4-5 laminotomy, with granulation tissue in the operative bed with associated tiny focus of gas, favor degenerative in nature. RIGHT L4-5 subarticular disc protrusion with likely impingement of descending RIGHT L5 nerve root. Severe foraminal stenoses at bilateral L4-5 and RIGHT L5-S1. 5.7 cm fluid collection with surrounding soft tissue thickening/stranding in the LEFT paramedian subcutaneous soft tissues overlying the spine at L3 level, likely postoperative seroma. [AH] 2245 Pt ambulated independently w/ steady gait [AH] ED Course User Index [] Angel Parmar MD [NW] Sulema Meyer MD Clinical Impressions as of 03/30/24 0738 Midline low back pain without sciatica, unspecified chronicity Weakness of left lower extremity Numbness of leg Under my care pt underwent MRI L spine, ortho spine saw and evaluated pt, no concerns for infection, no indications for acute surgical surgical intervention, recommend toradol, muscle relaxers, lidocaine patches, follow up with index surgeon. Pt would like to follow up here given spine and pain management referral. Given PCP referral. Pt comfortable with dc home with close follow up. [facility]: [id number] Author: ANGEL PARMAR MD Service: Emergency Medicine Author Type: Resident Type: ED Notes Filed: 03/29/2024 23:42 Note Text: for NW 49F prior spinal surgery w/ placement/removal of neuro stim in 10/2023, spinal surgery in 01/2024 pw low back pain, LLE numbness/weakness x1d. Multiple recent ED visits. Numbness new. Inflamm markers ok. CT pending. Likely dc ED Course as of 03/29/24 2308 Angel Parmar's Documentation [place] Mar 29, 20242237 CT LUMBAR SPINE WO IVCON IMPRESSION: Postoperative changes of LEFT L4-5 laminotomy, with granulation tissue in the operative bed with associated tiny focus of gas, favor degenerative in nature. RIGHT L4-5 subarticular disc protrusion with likely impingement of descending RIGHT L5 nerve root. Severe foraminal stenoses at bilateral L4-5 and RIGHT L5-S1. 5.7 cm fluid collection with surrounding soft tissue thickening/stranding in the LEFT paramedian subcutaneous soft tissues overlying the spine at L3 level, likely postoperative seroma. 2246 Pt ambulated independently w/ steady gait Others' Documentation Sun Mar 29, 2024 190 CBC: No leukocytosis, anemia, or thrombocytopenia. [NW] 191 CRP wnl. [NW] 1948 BMP: no FANY or anion gap. [NW] ED Course User Index [NW] Sulema Meyer MD Clinical Impressions as of 03/29/24 2308 Midline low back pain without sciatica, unspecified chronicity Weakness of left lower extremity Numbness of leg Under my care, plan carried out according to previous resident note. CT shows postoperative seroma which could be infectious in nature. MRI ordered and spine paged. At time of signout, pending MRI and spine consult/recommendations. Pt signed out to at 2340. Patient signed out without complications. [facility]: [id number] Author: ALLYSON MORROW RN Service: ? Author Type: Registered Nurse Type: ED Notes Filed: 03/29/2024 19:20 Note Text: Bedside report completed with DAR[facility]AN [facility]University [facility] NOTEon [id number] [facility] NOTEHNO ID: [id number] Author: VINNIE RIGGS MD Service: Emergency Medicine Author Type: Physician Type: ED Provider Notes Filed: 03/30/2024 04:04 Note Text: ED CONTINUATION OF CARE NOTE Code Status: Full Code Assumed care from: EB Presentation / Findings / Interventions / Plan / Items to Follow Up: Spinal surgery at . Persistent weakness LLE and sciatica. Sig pain. [] Spine consult [] MRI Lumbar spine ED Course as of 03/30/24 0401 Others' Documentation Sun Mar 29, 2024 190 CBC: No leukocytosis, anemia, or thrombocytopenia. [NW] 1913 CRP wnl. [NW] 1948 BMP: no FANY or anion gap. [NW] 2237 CT LUMBAR SPINE WO IVCON IMPRESSION: Postoperative changes of LEFT L4-5 laminotomy, with granulation tissue in the operative bed with associated tiny focus of gas, favor degenerative in nature. RIGHT L4-5 subarticular disc protrusion with likely impingement of descending RIGHT L5 nerve root. Severe foraminal stenoses at bilateral L4-5 and RIGHT L5-S1. 5.7 cm fluid collection with surrounding soft tissue thickening/stranding in the LEFT paramedian subcutaneous soft tissues overlying the spine at L3 level, likely postoperative seroma. [AH] 2246 Pt ambulated independently w/ steady gait [] SatMar 30, 2024 0149 MRI LUMBAR SPINE WO/W IVCON IMPRESSION: 1. Nonspecific postoperative changes of left L4-5 laminotomy. Fluid at the laminotomy cavity and within the left posterior subcutaneous fat may reflect evolving hematoma, seroma, or infection in the recently postoperative setting. 2. Spondylolisthesis at L4-5 as described above. Broad disc bulge with left subarticular disc protrusion resulting in left lateral recess stenosis. [LG] ED Course User Index [AH] Angel Parmar MD [LG] Diane Reyna MD [NW] Sulema Meyer MD Clinical Impressions as of 03/30/24 0401 Midline low back pain without sciatica, unspecified chronicity Weakness of left lower extremity Numbness of leg Medical Decision Making MRI lumbar spine obtained, findings as in epic. Fluid collection noted, consistent with possible hematoma, seroma or infection. However inflammatory markers negative. Spine surgery consulted, and do not feel there is any acute intervention needed. Patient can follow-up as outpatient with her own spine surgeon, or spine surgery here at [facility]. Sent home with Toradol, lidocaine patches, Flexeril, Pepcid, and Voltaren gel per recommendation of spine surgery. DC home per plan. SIGNATURE: Vinnie Riggs MD PATIENT NAME: Jerad Tracy DATE: March 29, 2024 TIME: 11:19 PM PAGER/CONTACT #: VINNIE RIGGS 03/30/24 [facility]404[facility] [id number] Author: DALTON BAXTER MD Service: Emergency Medicine Author Type: Physician Type: ED Provider Notes Filed: 03/31/2024 17:40 Note Text: ED Provider Note Patient Name: Jerad Tracy : 1975 SERVICE DATE: 03/29/24 History Patient presents with: Back Pain: Feb 05 had spinal surgery. Severe lower back pain and lost feeling in left leg starting at 11am. Denies loss of bowel or bladder Jerad Tracy is a 49 year old F with a past medical history of L4-L5 surgery (02/06/24), neuro stimulator placement and removal 2/2 to hematoma and infection (Oct 2023) who presents to the ED with low back pain. She states that she had surgery at in January for low back pain and L leg weakness. She states that her pain and symptoms initially improved after the surgery for about 3 weeks, however she did have return of her low back pain. She states that acutely today, she developed left leg weakness and decreased sensation. She denies recent trauma. She states that the numbness is from her hip down the lateral aspect of the left leg. She denies fevers, saddle anesthesia, urinary retention, bowel or bladder dysfunction, IVDU, chest pain, shortness of breath, dizziness. No past medical history on file. No past surgical history on file. No family history on file. Social History Tobacco Use - Smoking status: Not on file - Smokeless tobacco: Not on file Substance and Sexual Activity - Alcohol use: Not on file - Drug use: Not on file - Sexual activity: Not on file ALLERGIES Not on File Review of Systems Physical Exam Vitals [03/29/24 1700] BP Pulse Temp Temp src Resp SpO2 Weight Height 141/89 (!) 98 37.1 ?C (98.7 ?F) Oral 18 98 % -- -- Physical Exam Constitutional: General: She is not in acute distress. Appearance: She is not ill-appearing or diaphoretic. HENT: Head: Normocephalic and atraumatic. Cardiovascular: Rate and Rhythm: Normal rate and regular rhythm. Pulses: Radial pulses are 2+ on the right side and 2+ on the left side. Dorsalis pedis pulses are 2+ on the right side and 2+ on the left side. Heart sounds: Normal heart sounds. No murmur heard. Pulmonary: Effort: Pulmonary effort is normal. No tachypnea, accessory muscle usage or respiratory distress. Breath sounds: Normal breath sounds. No wheezing, rhonchi or rales. Abdominal: Palpations: Abdomen is soft. Tenderness: There is no abdominal tenderness. Musculoskeletal: Right lower leg: No edema. Left lower leg: No edema. Comments: TTP over midline lumbar spine and left low back. She does have 2 vertical midline and left of midline healed scars with mild amount of erythema surrounding, no drainage or warmth. Skin: General: Skin is warm. Capillary Refill: Capillary refill takes less than 2 seconds. Neurological: General: No focal deficit present. Mental Status: She is alert and oriented to person, place, and time. Coordination: Dyoazg-Jgep-Fjychf Test normal. Comments: Muscle strength in left lower extremity 4/5 Muscle strength in right lower extremity 5/5 Decreased sensation to light touch in left lower extremity compared to right. Downgoing toes to plantar stimulation bilaterally. Pain with straight leg raise. Diagnostic Testing ED Labs Ordered and Reviewed - No data to display Procedures ED Course / Clinical Impression ED Course as of 03/31/24 1740 Others' Documentation Sun Mar 29, 2024 1904 CBC: No leukocytosis, anemia, or thrombocytopenia. [NW] 1913 CRP wnl. [NW] 1949 BMP: no FANY or anion gap. [NW] 2238 CT LUMBAR SPINE WO IVCON IMPRESSION: Postoperative changes of LEFT L4-5 laminotomy, with granulation tissue in the operative bed with associated tiny focus of gas, favor degenerative in nature. RIGHT L4-5 subarticular disc protrusion with likely impingement of descending RIGHT L5 nerve root. Severe foraminal stenoses at bilateral L4-5 and RIGHT L5-S1. 5.7 cm fluid collection with surrounding soft tissue thickening/stranding in the LEFT paramedian subcutaneous soft tissues overlying the spine at L3 level, likely postoperative seroma. [AH] 2246 Pt ambulated independently w/ steady gait [AH] SatMar 30, 2024 0149 MRI LUMBAR SPINE WO/W IVCON IMPRESSION: 1. Nonspecific postoperative changes of left L4-5 laminotomy. Fluid at the laminotomy cavity and within the left posterior subcutaneous fat may reflect evolving hematoma, seroma, or infection in the recently postoperative setting. 2. Spondylolisthesis at L4-5 as described above. Broad disc bulge with left subarticular disc protrusion resulting in left lateral recess stenosis. [LG] ED Course User Index [AH] Angel Parmar MD [LG] Diane Reyna MD [NW] Sulema Meyer MD Clinical Impressions as of 03/31/24 1740 Weakness of left lower extremity Numbness of leg Sciatica of left side MDM / Disposition / Plan Jerad Tracy is a 49 year old F who pres (more content not included)...Normal [facility] Westergren method (Bld) [Velocity]on [id number] (Bld) [Velocity]22 mm/hHigh0-20[facility] HospitalComment on above:Order Comment: Specimen Type: BLOOD SPECIMENOrdering Facility: [facility] Address:[address] [place], [place] [address]Performed By: #### 03222- 8, 4537-7 ####[facility] LABCLIA [id number] [facility] [place] [address] [place] AMERICAMagnesium SerPl-mCncon [id number] [Mass/Vol]1.9 mg/dLNormal1.7-2.3CGalion Hospital Comment on above:Order Comment: Specimen Type: BLOOD SPECIMENOrdering Facility: [facility] Address:[address] [place] [address] Performed By: #### 1988-5, 19474-5, 91050-6 ####[facility] LABCLIA [id number] [place] [address] [place] AMERICACB W Auto Differential panel (Bld)on [id number] (Bld) [#/Vol] 0.01 10*3/uLJoint Township District Memorial HospitalBasophils/100 WBC (Bld)0.1 %0.0 - 2.0 %[facility] HospitalEosinophils (Bld) [#/Vol]0.05 10*3/uL [facility] HospitalEosinophils/100 WBC (Bld)0.5 %0.0 - 6.0 % [facility] HospitalErythrocyte distribution width (RBC) [Ratio] 14.3 %11.5 - 14.5 %[facility] HospitalHematocrit (Bld) [Volume fraction]43.6 %36.0 - 46.0 %[facility] HospitalHemoglobin (Bld) [Mass/Vol]14.1 g/dL12.0 - 16.0 g/dLUnWood County HospitalImmature granulocytes (Bld) [#/Vol]0.02 10*3/[facility] HospitalImchristian hospital granulocytes/100 WBC (Bld)0.2 %0.0 - 0.9 %[facility] Comment on above:Immature Granulocyte Count (IG) includes promyelocytes, myelocytes and metamyelocytes but does not include bands. Percent differential counts (%) should be interpreted in the context of the absolute cell counts (cells/UL).Lymphocytes (Bld) [#/Vol]1.84 10*3/[facility]riners HospitalLymphocytes/100 WBC (Bld)19 %13.0 - 44.0 %[facility], Edwin ShawH (RBC) [Entitic mass]29.8 pg26.0 - 34.[address] Joseph Warren HospitalHC (RBC) [Mass/Vol]32.3 g/dL32.0 - 36.0 g/dLUnMercy Health St. Joseph Warren HospitalV (RBC) [Entitic vol]92 fL80 - 100 fLUniShelby Memorial HospitalMonocytes (Bld) [#/Vol]0.52 10*3/[facility] Monocytes/100 WBC (Bld)5.4 %2.0 - 10.0 %[facility] Neutrophils (Bld) [#/Vol]7.24 10*3/[facility] HospitalComment on above:Percent differential counts (%) should be interpreted in the context of the absolute cell counts (cells/uL).Neutrophils/100 WBC (Bld)74.8 %40.0 - 80.0 % [facility] HospitalNucleated RBC/100 WBC (Bld) [Ratio]0 % [facility] HospitalPlatelets (Bld) [#/Vol]321 10*3/[facility]ers HospitalRBC (Bld) [#/Vol]4.73 10*6/[facility]ers HospitalWBC (Bld) [#/Vol]9.7 10*3/uLJoint Township District Memorial HospitalUnWood County HospitalBasophils (Bld) [#/Vol]0.01 x10*3/uLNormal0.00-0.10 [facility] HospitalComment on above:Performed By: #### 92107-9 #### SANTOSH BAI ([id number]) [facility] ([facility]) [address] [place], [place] [address]Eydjadswn/100 WBC (Bld)0.1 %Normal0.0-2.0UnBarnesville HospitalComment on above:Performed By: #### 98901-5 #### SANTOSH BAI ([id number]) [facility] ([facility]) [address] [place], [place] [address]Vjvqxrxrdbt (Bld) [#/Vol]0.05 x10*3/uLNormal0.00-0.70 [facility] HospitalComment on above:Performed By: #### 90566-1 #### SANTOSH BAI ([id number]) [facility] ([facility]) [address] [place], [place] [address]Ledcvlvlqgk/100 WBC (Bld)0.5 %Normal0.0-6.0UnBarnesville HospitalComment on above:Performed By: #### 19910-5 #### SANTOSH BAI ([id number]) [facility] ([facility]) [address] [place], [place] [address]Drmgtopcims distribution width (RBC) [Ratio]14.3 %Normal 11.5-14.5UnBarnesville HospitalComment on above:Performed By: #### 17879-1 #### SANTOSH BAI ([id number]) [facility] ([facility]) [address] [place], [place] [address]Lkhlhawyww (Bld) [Volume fraction]43.6 %Yfdrya83.0-46.0 [facility] HospitalComment on above:Performed By: #### 06863-7 #### SANTOSH BAI ([id number]) [facility] ([facility]) [address] [place], [place] [address]Gfwztwwret (Bld) [Mass/Vol]14.1 g/iNGurukk52.0-16.0UnBarnesville HospitalComment on above:Performed By: #### 32833-5 #### SANTOSH ABI ([id number]) [facility] ([facility]) [address] [place], [place] [address]Rdxnrjss granulocytes (Bld) [#/Vol]0.02 x10*3/uLNormal 0.00-0.70UnBarnesville HospitalComment on above:Performed By: #### 04143-2 #### SANTOSH BAI ([id number]) [facility] ([facility]) [address] [place], [place] [address]Xmwcnler granulocytes/100 WBC (Bld)0.2 %Normal0.0-0.9 [facility] HospitalComment on above:Result Comment: Immature Granulocyte Count (IG) includes promyelocytes, myelocytes and metamyelocytes but does not include bands. Percent differential counts (%) should be interpreted in the context of the absolute cell counts (cells/UL). Performed By: #### 28154-5 #### SANTOSH BAI (54477) [facility] ([facility]) [address] [place], [place] [address]Osoiujjwfjg (Bld) [#/Vol]1.84 x10*3/uLNormal1.20-4.80 [facility] HospitalComment on above:Performed By: #### 01849-3 #### SANTOSH BAI ([id number]) [facility] ([facility]) [address] [place], [place] [address]Womhfhgqhkv/100 WBC (Bld)19.0 %Invjxw91.0-44.0UnBarnesville HospitalComment on above:Performed By: #### 36994-0 #### SANTOSH BAI ([id number]) [facility] ([facility]) [address] [place], [place] [address]WWJ (RBC) [Entitic mass]29.8 bcEbrgfg12.0-34.0UnBarnesville HospitalComment on above:Performed By: #### 73245-1 #### SANTOSH BAI ([id number]) [facility] ([facility]) [address] [place], [place] [address]YMNQ (RBC) [Mass/Vol]32.3 g/oFVvvhcx29.0-36.0[facility] HospitalComment on above:Performed By: #### 29934-0 #### SANTOSH BAI ([id number]) [facility] ([facility]) [address] [place], [place] [address]FNB (RBC) [Entitic vol]92 iWGuemyw87-581UlbhuohcztBarnesville HospitalComment on above:Performed By: #### 04294-1 #### SANTOSH BAI (09063) [facility] ([facility]) [address] [place], [place] [address]Kguknrxmd (Bld) [#/Vol]0.52 x10*3/uLNormal0.10-1.00UnBarnesville HospitalComment on above:Performed By: #### 32593-6 #### SANTOSH BAI ([id number]) [facility] ([facility]) [address] [place], [place] [address]Bqtsuuxkl/100 WBC (Bld)5.4 %Normal2.0-10.0UnBarnesville HospitalComment on above:Performed By: #### 20238-0 #### SANTOSH BAI ([id number]) [facility] ([facility]) [address] [place], [place] [address]Ugdejzaoiko (Bld) [#/Vol]7.24 x10*3/uLNormal1.20-7.70 [facility] HospitalComment on above:Result Comment: Percent differential counts (%) should be interpreted in the context of the absolute cell counts (cells/uL).Performed By: #### 24222-6 #### SANTOSH BAI ([id number]) [facility] ([facility]) [address] [place], [place] [address]Jjzobkojtee/100 WBC (Bld)74.8 %Usnlyv73.0-80.0[facility] HospitalComment on above:Performed By: #### 16352-1 #### SANTOSH BAI ([id number]) [facility] ([facility]) [address] [place], [place] [address]Cybasroxu RBC/100 WBC (Bld) [Ratio]0.0 /100 WBCsNormal0.0-0.0 [facility] HospitalComment on above:Performed By: #### 15301-8 #### SANTOSH BAI (79326) [facility] ([facility]) [address] [place], [place] [address]Tivddrcjl (Bld) [#/Vol]321 x10*3/iAWdgsyt046-369YadhymngtmBarnesville HospitalComment on above:Performed By: #### 97897-3 #### SANTOSH BAI ([id number]) [facility] ([facility]) [address] [place], [place] [address]YSF (Bld) [#/Vol]4.73 x10*6/uLNormal4.00-5.20UnBarnesville HospitalComment on above:Performed By: #### 87090-4 #### SANTOSH BAI ([id number]) [facility] ([facility]) [address] [place], [place] [address]TFD (Bld) [#/Vol]9.7 x10*3/uLNormal4.4-11.3[facility] HospitalComment on above:Performed By: #### 45880-7 #### SANTOSH BAI ([id number]) [facility] ([facility]) [address] [place], [place] [address]WX LUMBAR SPINE WO IV CONTRASTon [id number] LUMBAR SPINE WO IV CONTRASTInterpreted By: Kati Beth, STUDY: CT LUMBAR SPINE WO IV CONTRAST; 03/28/2024 2:18 am INDICATION: Signs/Symptoms:pain multiple prior surgeries. COMPARISON: Multiple prior examinations, the most recent 03/19/2024 ACCESSION NUMBER(S): [id number] ORDERING CLINICIAN: DLATON GREY TECHNIQUE: Axial noncontrast images of the lumbar spine with coronal and sagittal reconstructed images. FINDINGS: ALIGNMENT: Normal. VERTEBRAE: No acute fracture. Left L4 hemilaminectomy noted. SPINAL CANAL: Moderate degenerative disc changes and facet arthropathy at L4-5 and L5-S1. T12-L1: No significant spinal canal or neural foraminal stenosis. L1-2: No significant spinal canal or neural foraminal stenosis. L2-3: No significant spinal canal or neural foraminal stenosis. L3-4: No significant spinal canal or neural foraminal stenosis. L4-5: Postsurgical changes, similar to prior. A focus of gas in the left hemilaminectomy site is decreasing in size and likely postprocedural. There is a posterior disc osteophyte complex resulting in similar degree of spinal canal stenosis. Mild bilateral neural foraminal stenosis is stable. L5-S1: No significant spinal canal stenosis. Mild right neural foraminal stenosis. PREVERTEBRAL SOFT TISSUES: No prevertebral soft tissue swelling. OTHER FINDINGS: Mild sacroiliac osteoarthrosis. A fluid collection in the posterior paraspinal soft tissues, to the left of midline at the L3 through L5 levels has decreased in size, currently 3.5 x 3.4 x 3 x 4.5 cm, previously approximately 5 x 4 x 7 cm. IMPRESSION: No acute fracture or traumatic subluxation of the lumbar spine. Similar appearance of postsurgical and degenerative changes as above. Decreasing subcutaneous fluid collection in the left posterior lower back, favored to represent a postoperative seroma. MACRO: None Signed by: Kati Beth 03/28/2024 2:53 AM Dictation workstation: [id number] Hospital Cleveland WestCT Lumbar spine WO contraston [id number] acute fracture or traumatic subluxation of the lumbar spine. Similar appearance of postsurgical and degenerative changes as above. Decreasing subcutaneous fluid collection in the left posterior lower back, favored to represent a postoperative seroma. MACRO: None Signed by: Kati Beth 03/28/2024 2:53 AM Dictation workstation: [id number] MMODALInterpreted By: Kati Beth, STUDY: CT LUMBAR SPINE WO IV CONTRAST; 03/28/2024 2:18 am INDICATION: Signs/Symptoms:pain multiple prior surgeries. COMPARISON: Multiple prior examinations, the most recent 03/19/2024 ACCESSION NUMBER(S): [id number] ORDERING CLINICIAN: DALTON GREY TECHNIQUE: Axial noncontrast images of the lumbar spine with coronal and sagittal reconstructed images. FINDINGS: ALIGNMENT: Normal. VERTEBRAE: No acute fracture. Left L4 hemilaminectomy noted. SPINAL CANAL: Moderate degenerative disc changes and facet arthropathy at L4-5 and L5-S1. T12-L1: No significant spinal canal or neural foraminal stenosis. L1-2: No significant spinal canal or neural foraminal stenosis. L2-3: No significant spinal canal or neural foraminal stenosis. L3-4: No significant spinal canal or neural foraminal stenosis. L4-5: Postsurgical changes, similar to prior. A focus of gas in the left hemilaminectomy site is decreasing in size and likely postprocedural. There is a posterior disc osteophyte complex resulting in similar degree of spinal canal stenosis. Mild bilateral neural foraminal stenosis is stable. L5-S1: No significant spinal canal stenosis. Mild right neural foraminal stenosis. PREVERTEBRAL SOFT TISSUES: No prevertebral soft tissue swelling. OTHER FINDINGS: Mild sacroiliac osteoarthrosis. A fluid collection in the posterior paraspinal soft tissues, to the left of midline at the L3 through L5 levels has decreased in size, currently 3.5 x 3.4 x 3 x 4.5 cm, previously approximately 5 x 4 x 7 cm. MMODALKati Beth MD - 03/28/2024 Interpreted By: Kati Beth, STUDY: CT LUMBAR SPINE WO IV CONTRAST; 03/28/2024 2:18 am INDICATION: Signs/Symptoms:pain multiple prior surgeries. COMPARISON: Multiple prior examinations, the most recent 03/19/2024 ACCESSION NUMBER(S): [id number] ORDERING CLINICIAN: DALTON GREY TECHNIQUE: Axial noncontrast images of the lumbar spine with coronal and sagittal reconstructed images. FINDINGS: ALIGNMENT: Normal. VERTEBRAE: No acute fracture. Left L4 hemilaminectomy noted. SPINAL CANAL: Moderate degenerative disc changes and facet arthropathy at L4-5 and L5-S1. T12-L1: No significant spinal canal or neural foraminal stenosis. L1-2: No significant spinal canal or neural foraminal stenosis. L2-3: No significant spinal canal or neural foraminal stenosis. L3-4: No significant spinal canal or neural foraminal stenosis. L4-5: Postsurgical changes, similar to prior. A focus of gas in the left hemilaminectomy site is decreasing in size and likely postprocedural. There is a posterior disc osteophyte complex resulting in similar degree of spinal canal stenosis. Mild bilateral neural foraminal stenosis is stable. L5-S1: No significant spinal canal stenosis. Mild right neural foraminal stenosis. PREVERTEBRAL SOFT TISSUES: No prevertebral soft tissue swelling. OTHER FINDINGS: Mild sacroiliac osteoarthrosis. A fluid collection in the posterior paraspinal soft tissues, to the left of midline at the L3 through L5 levels has decreased in size, currently 3.5 x 3.4 x 3 x 4.5 cm, previously approximately 5 x 4 x 7 cm. IMPRESSION: No acute fracture or traumatic subluxation of the lumbar spine. Similar appearance of postsurgical and degenerative changes as above. Decreasing subcutaneous fluid collection in the left posterior lower back, favored to represent a postoperative seroma. MACRO: None Signed by: Kati Beth 03/28/2024 2:53 AM Dictation workstation: [id number] [facility] Work Phone: Radiology Study observation (narrative)[facility] Work Phone: CT Lumbar spine WO contrastOrdered By: Kati Beth on [id number] County Hospital Work Phone: Comprehensive metabolic 2000 panelon [id number] BCP dye [Mass/Vol]4 g/dL3.4 - 5.0 g/dLUnWood County HospitalALP [Catalytic activity/Vol]92 U/L33 - 110 U/[facility] HospitalALT With P-5'-P [Catalytic activity/Vol]17 U/L7 - 45 U/[facility] HospitalComment on above:Patients treated with Sulfasalazine may generate falsely decreased results for ALT.Anion gap [Moles/Vol]13 mmol/L10 - 20 mmol/L [facility] HospitalAST With P-5'-P [Catalytic activity/Vol]16 U/L9 - 39 U/[facility] HospitalBilirubin [Mass/Vol]0.3 mg/dL0.0 - 1.2 mg/dLUnWood County HospitalCalcium [Mass/Vol]8.8 mg/dL8.6 - 10.3 mg/dLUnWood County HospitalChloride [Moles/Vol]107 mmol/L98 - 107 mmol/[facility] HospitalCO2 [Moles/Vol]21 mmol/L21 - 32 mmol/L [facility] HospitalCreatinine [Mass/Vol]0.68 mg/dL0.50 - 1.05 mg/dLUnWood County HospitaleGFR- PINFUniShelby Memorial HospitalComment on above:Calculations of estimated GFR are performed using the 2020 CKD-EPI Study Refit equation without therace variable for the IDMS- Traceable creatinine methods. https://jasn.asnjournals.org/content/early//ASN.2527033971 Glucose [Mass/Vol]131 mg/bHNfbc23 - 99 mg/dLUnWood County Hospital Interpretation and review of laboratory resultsAbnormalUniShelby Memorial HospitalPotassium [Moles/Vol]3.8 mmol/L3.5 - 5.3 mmol/[facility] HospitalProtein [Mass/Vol]7.6 g/dL6.4 - 8.2 g/dLUnWood County HospitalSodium [Moles/Vol]137 mmol/L136 - 145 mmol/[facility] HospitalUrea nitrogen [Mass/Vol]17 mg/dL6 - 23 mg/dLUnWood County HospitalUnWood County HospitalAlbumin BCP dye [Mass/Vol]4.0 g/dL Normal3.4-5.0UnBarnesville HospitalComment on above:Performed By: #### 84191-7 #### SANTOSH BAI ([id number]) [facility] ([facility] [address] [place] [id number] [Catalytic activity/Vol]92 U/DQmyibu87-465DabjrvunpuBarnesville HospitalComment on above:Performed By: #### 60602-8 #### SANTOSH BAI ([id number]) [facility] ([facility]) [address] [place], [place] [address]PBT With P-5'-P [Catalytic activity/Vol]17 U/LNormal7-45 [facility]acon[facility] HospitalComment on above:Result Comment: Patients treated with Sulfasalazine may generate falsely decreased results for ALT.Performed By: #### 53111-9 #### SANTOSH BAI ([id number]) [facility] ([facility]) [address] [place], [place] [address]Crlcs gap [Moles/Vol]13 mmol/YVtqxhh05-18WcvphrtbnaBarnesville HospitalComment on above:Performed By: #### 90782-2 #### SANTOSH BAI ([id number]) [facility] ([facility]) [address] [place], [place] [address]BMH With P-5'-P [Catalytic activity/Vol]16 U/LNormal9-39 [facility] HospitalComment on above:Performed By: #### 01945-7 #### SANTOSH BAI ([id number]) [facility] ([facility]) [address] [place], [place] [address]Ikempmpbo [Mass/Vol]0.3 mg/dLNormal0.0-1.2UnBarnesville HospitalComment on above:Performed By: #### 86839-0 #### SANTOSH BAI ([id number]) [facility] ([facility]) [address] [place], [place] [address]Oixpasg [Mass/Vol]8.8 mg/dLNormal8.6-10.3UnBarnesville HospitalComment on above:Performed By: #### 81772-3 #### SANTOSH BAI ([id number]) [facility] ([facility]) [address] [place], [place] [address]Jfiukwen [Moles/Vol]107 mmol/TEpavjt77-874OivqltxnteBarnesville HospitalComment on above:Performed By: #### 90805-1 #### SANTOSH BAI ([id number]) [facility] ([facility]) [address] [place], [place] [address]JJ9 [Moles/Vol]21 mmol/BWdmhzj30-84OlacccaqhhBarnesville HospitalComment on above:Performed By: #### 34177-1 #### SANTOSH BAI ([id number]) [facility] ([facility]) [address] [place], [place] [address]Hgvsqqphfh [Mass/Vol]0.68 mg/dLNormal0.50-1.05UnBarnesville HospitalComment on above:Performed By: #### 66275-8 #### SANTOSH BAI ([id number]) [facility] ([facility]) [address] [place], [place] [address]ZKU/1.73 sq M.predicted MDRD (S/P/Bld) [Vol rate/Area] mL/min/{1.73_m2}Normal>60UnBarnesville HospitalComment on above:Result Comment: Calculations of estimated GFR are performed using the 2020 CKD-EPI Study Refit equation without the race variable for the IDMS-Traceable creatinine methods. https://jasn.asnjournals.org/content/early//ASN.6928726741Nvfzhfaxh By: #### 49410-6 #### SANTOSH BAI ([id number]) [facility] ([facility]) [address] [place], [place] [address]Qhbhhwb [Mass/Vol]131 mg/dINzft28-21DkkbcylufoBarnesville HospitalComment on above:Performed By: #### 26115-7 #### SANTOSH BAI ([id number]) [facility] ([facility]) [address] [place], [place] [address]Dcvcfkilb [Moles/Vol]3.8 mmol/LNormal3.5-5.3[facility]acon[facility] HospitalComment on above:Performed By: #### 64929-0 #### SANTOSH BAI ([id number]) [facility] ([facility]) [address] [place], [place] [address]Mmvsotb [Mass/Vol]7.6 g/dLNormal6.4-8.2[facility] HospitalComment on above:Performed By: #### 02259-7 #### SANTOSH BAI ([id number]) [facility] ([facility]) [address] [place], [place] [address]Gtunyr [Moles/Vol]137 mmol/PTjqrwk553-207SnatyiibbrProtestant Deaconess HospitalComment on above:Performed By: #### 35760-5 #### SANTOSH BAI ([id number]) [facility] ([facility]) [address] [place], [place] [address]Wpxa nitrogen [Mass/Vol]17 mg/dLNormal6-23[facility]acon[facility] HospitalComment on above:Performed By: #### 82498-1 #### SANTOSH BAI ([id number]) [facility] ([facility]) [address] [place], [place] [address]NH Clinical Summaryon [id number] Clinical SummaryED Clinical Summary [place] [address] ED Clinical Summary Person Information Name: JERAD TRACY Tasha/[facility] Age: 49 Years : 1975 Sex: Female Language: Malagasy PCP: MARLEE FITZPATRICK MD Marital Status: Phone: Visit Id: Visit Reason: Leg pain-swelling; Back pain; BACK PAIN Speciality: Acuity: 4 Enc Type: Emergency Med Service: Emergency Arrival: 03/28/2024 12:21:45 Discharge: 03/28/2024 12:49:07 LOS: 000 00:28 Checkin: 03/28/2024 12:21:45 Checkout: 03/28/2024 12:49:07 Dispo Type: Home (Routine DC) EVENTS: Event Name Event Status Request Date/Time Start Date/Time Complete Date/Time Arrive Complete 03/28/2024 12:21:45 03/28/2024 12:21:45 03/28/2024 12:21:45 Document Home Meds Request 03/28/2024 12:21:45 Triage Complete 03/28/2024 12:21:45 03/28/2024 12:33:06 03/28/2024 12:33:06 Registration Complete 03/28/2024 12:25:05 03/28/2024 12:25:05 03/28/2024 12:25:05 Reg Complete Request 03/28/2024 12:25:05 Reg Bed Request Complete 03/28/2024 12:25:06 03/28/2024 12:25:06 03/28/2024 12:25:06 Bed Assign Complete 03/28/2024 12:26:37 03/28/2024 12:26:37 03/28/2024 12:26:37 Dr Exam Complete 03/28/2024 12:26:37 03/28/2024 12:27:56 03/28/2024 12:27:56 RN Exam Complete 03/28/2024 12:26:37 03/28/2024 12:36:10 03/28/2024 12:36:10 Registration Request 03/28/2024 12:27:56 Meds Admin Complete 03/28/2024 12:40:18 03/28/2024 12:46:37 Discharge Complete 03/28/2024 12:40:44 03/28/2024 12:49:15 03/28/2024 12:49:15 Transfer Complete 03/28/2024 12:49:15 03/28/2024 12:49:15 03/28/2024 12:49:15 ADDRESS: [address] [place] [id number] [facility] DOC NOTES: MEDICAL INFORMATION: Prescriptions Given: Medications to Continue with No Changes Other Medications azithromycin (azithromycin 250 mg Tab) 250 Milligram By Mouth As Directed. Take two tabs by mouth on day one, then one tab daily. Refills: 0. cyclobenzaprine (cyclobenzaprine 10 mg Tab) 1 Tablets By Mouth 3 times a day as needed for spasm. Refills: 0. cyclobenzaprine (cyclobenzaprine 10 mg Tab) [...] and 12 hours off daily. Refills: 0. methocarbamol (Robaxin 500 mg Tab) 1 Tablets By Mouth 3 times a day for 3 Days. Refills: 0. naproxen (Naprosyn 500 mg Tab) 1 Tablets By Mouth 2 times a day as needed for pain. Refills: 0. ondansetron (Zofran 4 mg Tab) [...] day. Refills: 0. PATIENT EDUCATION INFORMATION: Instructions: Follow up: With: Address: When: AMRLEE FITZPATRICK [address] [place], [place] [address] [facility] (6) In 3 days DIAGNOSIS: Chronic back pain; Other chronic painNormalFisher Pollock Medical CenterED Note-Physicianon [id number] Note-PhysicianED Note-Physician Basic Information Time Seen: Jorge Mcintosh DO 03/28/2024 12:27 Chief Complaint pt presents with lower back and left leg pain. History of Present Illness 49 female presents with exacerbation of chronic back pain. Patient is well-known to the emergency department for multiple visits with chronic pain related to her back. She does have recent CT scan that shows herniated disc at L4-5. She is following with her back specialist and is scheduled for upcoming injections. She states that she did slip on the way in here today and injured her back. She hasbeen taking ibuprofen at home without relief of symptoms. She states that she was recently prescribed Robaxin but states that this makes her sleepy so she does not take it during the day. She reportsno red flag symptoms no urinary retention or incontinence. No other aggravating or relieving factors no other associated symptoms no other prior treatments or complaints. Family: Reviewed and noncontributory Social: lives at home Review of systems negative unless otherwise specified in the HPI. Physical Exam Vitals & Measurements T: 36.4 ???C(Oral) HR: 101(Peripheral) RR: 16 BP: 150/86 SpO2: 97% HT: 160 cm WT: 120.4 kg BMI: 47.03 Vital Signs reviewed and noted. General: Alert, no acute distress, patient resting comfortably Skin: warm, intact, no pallor noted Head: Normocephalic, atraumatic Eye: Normal conjunctiva Cardiac: Normal peripheral perfusion Respiratory: No acute distress Musculoskeletal: No deformity, full ROM. Back: No focal tenderness palpation to the midline of the thoracic lumbar spine no step-off no crepitus appreciated. Patient does have generalized tenderness in the paraspinal musculature with some spasm noted. Old surgical scar noted. Neurological: alert and oriented, normal sensory and motor observed. Psychiatric: Cooperative Medical Decision Making Patient is treated here with intramuscular Toradol and 1 oxycodone. I did review her OARRS report and she is to continue taking her prescribed medications at home follow-up in the outpatient setting return to ER symptoms change or worsen. Assessment/Plan Chronic back pain (M54.9: Dorsalgia, unspecified) Other chronic pain (G89.29: Other chronic pain) Orders: ketorolac, 60 mg = 2 mL, Injection, IntraMuscular, Once, Stop date 03/28/24 12:39:00 EST, STAT, Start date 03/28/24 12:39:00 EST, 03/28/24 12:39:00 EST oxycodone, 5 mg = 1 tab(s), Tab, Oral, Once, Stop date 03/28/24 12:39:00 EST, STAT, Start date 03/28/24 12:39:00 EST, 03/28/24 12:39:00 EST Disposition Plan Discharge Prescription List Prescriptions No active prescription medications Follow-up With When Contact Information MARLEE FITZPATRICK In 3 days [address] [place] [address]- Business (1) Additional Instructions: Problem List/Past Medical [...] Injection, 60 mg= 2 mL, IntraMuscular, Once oxyCODONE 5 mg Tab, 5 mg= 1 tab(s), Oral, Once Home azithromycin 250 mg Tab, 250 mg, Oral, As Directed Bentyl 10 mg Cap, 20 mg= 2 cap(s), Oral, QID cyclobenzaprine 10 mg Tab, 10 mg= 1 tab(s), Oral, TID, PRN cyclobenzaprine 10 mg Tab, 10 mg= 1 tab(s), Oral, TID, PRN diflunisal 500 mg Tab, 500 mg= 1 tab(s), Oral, q12hr FLUoxetine 60 mg oral tablet, See Instructions ibuprofen 800 mg Tab, 800 mg= 1 tab(s), Oral, TID lidocaine Top 5% film Patch, 1 patch(es), Topical, Daily Lidoderm 5% Patch, 1 patch(es), Topical, Daily Lidoderm 5% Patch, 1 patch(es), Topical, Daily Naprosyn 500 mg Tab, 500 mg= 1 tab(s), Oral, BID, PRN predniSONE 10 mg Tab, 10 mg= 1 tab(s), Oral, As Directed predniSONE 20 mg Tab, 3, Oral, Daily Robaxin 500 mg Tab, 500 mg= 1 tab(s), Oral, TID Zofran 4 mg Tab, 4 mg= 1 tab(s), Oral, q6hr, PRN Allergies Tylenol (Unknown) Vicodin (Hives) nabumetone (Rash) penicillin (Hives) Social History Alcohol - Denies Alcohol Use, 07/10/2012 Substance Abuse - Denies Substance Abuse, 07/10/2012 Past, Cocaine, 07/17/2023 Tobacco - High Risk, 12/07/2022 10 or more cigarettes (1/2 pack or more)/day in last 30 days Tobacco Use:., 03/28/2024 10 or more cigarettes (1/2 pack or more)/day in last 30 days Tobacco Use:., 03/18/2024 10 or more cigarettes (1/2 pack or (more content not included)...[facility] HospitalComment on above:Result Comment: Electronically Signed By: Jorge Mcintosh DO\.br\Date and Time Signed: 03/28/24 12:43ESTED Patient Education Noteon [id number] Patient Education NoteED Patient Education NoteNormBlanchard Valley Health System [facility]ard [facility] Hospital CenterED Patient Summaryon [id number] Patient SummaryED Patient Summary [place] [id number] Patient Discharge Instructions Person Information Name: JERAD TRACY Age: 49 Years Arrival Date: 03/28/2024 12:21:45 Discharge Diagnosis: Chronic back pain; Other chronic pain Primary Care Physician: MARLEE FITZPATRICK MD Provider Information Primary Provider: Jorge Mcintosh DO Advanced Dietetic Intern:None The exam and treatment you received in the Emergency Department were for an urgent problem and are not intended as complete care. It is important that you follow up with a doctor, nurse practitioner,or physician???s construction assistant for ongoing care. If your symptoms become worse or you do not improve asexpected and you are unable to reach your usual health care provider, you should return to the Emergency Department. We are available 24 hours a day. JERAD TRACY has been given the following list of patient education materials, prescriptions andfollow-up instructions: Follow-up Instructions: With: Address: When: MARLEE FITZPATRICK [address] [place], [place] [address] [facility] (1) In 3 days In the event that this physician does not participate in your insurance network, please consult with your insurance company to find a nearby participating provider. Patient Education Materials: A MESSAGE TO ALL PATIENTS REGARDING OPIOIDS PRESCRIPTION OPIOIDS: WHAT YOU NEED TO KNOW Prescription opioids can be used to help relieve ovltjugg-fz-nyexrj pain and are often prescribed following a [...] guidance from the Food and Drug Administration (www.fda.gov/Drugs/ResourcesForYou). ??? Visit www.cdc.gov/drugoverdose to learn about the risks of opioids abuse and overdose. ??? If you believe you may be struggling with addiction, tell your health childcare aide and askfor guidance or call [facility] (more content not included)... [facility] HospitalUrinalysis complete W Reflex Culture panel (U) on [id number] (U)ClearClearUnWood County HospitalBilirubin (U) [Mass/Vol]NegativeNEGATIVEUnWood County HospitalColor (U) Bbiul-LyyjrxHwujv-Smodny, Yellow, Dark-YellowUnWood County Hospital Glucose Auto test strip (U) [Mass/Vol]NormalNormal mg/dLUnWood County HospitalInterpretation and review of laboratory resultsNormalUniversSelect Specialty Hospital - EvansvilleKetones (U) [Mass/Vol]NegativeNEGATIVE mg/dLUnWood County HospitalLeukocyte esterase Auto test strip Ql (U)NegativeNEGATIVE [facility] HospitalNitrite Auto test strip Ql (U)NegativeNEGATIVE [facility] HospitalpH (U)6 [pH]5.0, 5.5, 6.0, 6.5, 7.0, 7.5, 8.0 [facility] HospitalProtein (U) [Mass/Vol]NegativeNEGATIVE, 10 (TRACE), 20 (TRACE) mg/dLUnWood County HospitalRBC (U) [#/Vol] NegativeNEGATIVEUnWood County HospitalSpecific gravity (U) [Rel density]1.0271.005 - 1.035UnWood County HospitalUrobilinogen (U) [Mass/Vol]NormalNormal mg/dLLakeHealth Beachwood Medical CenterAppearance (U)ClearNormalClearProtestant Deaconess HospitalComment on above:Performed By: #### 06007-0 #### SANTOSH BAI ([id number]) [facility] ([facility]) [address] [place], [place] [address]Hmktgreco (U) [Mass/Vol]NegativeNormalNEGCleveland Clinic Lutheran HospitalComment on above:Performed By: #### 55628-0 #### SANTOSH BAI ([id number]) [facility] ([facility]) [address] [place] [address]Ylpzw (U)Xwhwn-YflnjfBapdvnZhywh-Hwvsjx, Yellow, Dark-Yellow [facility] HospitalComment on above:Performed By: #### 22139-9 #### SANTOSH BAI ([id number]) [facility] ([facility]) [address] [place] [address]Kdfemvv Auto test strip (U) [Mass/Vol]NormalNormalNoal [facility]acon[facility] HospitalComment on above:Performed By: #### 68387-5 #### SANTOSH BAI ([id number]) [facility] ([facility]) [address] [place], [place] [address]Ikgapdr (U) [Mass/Vol]NegativeNormalNEGATIVEProtestant Deaconess HospitalComment on above:Performed By: #### 44159-7 #### SANTOSH BAI ([id number]) [facility] ([facility]) [address] [place], [place] [address]Zmajgbwme esterase Auto test strip Ql (U)NegativeNormal NEGATIVEProtestant Deaconess HospitalComment on above:Performed By: #### 58666-2 #### SANTOSH BAI ([id number]) [facility] ([facility]) [address] [place], [place] [address]Rffkyjb Auto test strip Ql (U)NegativeNormalNEGKettering Health HamiltonComment on above:Performed By: #### 04521-2 #### SANTOSH BAI ([id number]) [facility] ([facility]) [address] [place], [place] [address]wS (U)6.0 [pH]Normal5.0, 5.5, 6.0, 6.5, 7.0, 7.5, 8.0 [facility]aconess HospitalComment on above:Performed By: #### 75306-7 #### SANTOSH BAI ([id number]) [facility] ([facility]) [address] [place], [place] [address]Vlidllq (U) [Mass/Vol]NegativeNormalNEGATIVE, 10 (TRACE), 20 (TRACE)[facility]acon[facility] HospitalComment on above:Performed By: #### 03494-6 #### SANTOSH BAI ([id number]) [facility] ([facility]) [address] [place], [place] [address]JXZ (U) [#/Vol]NegativeNormalNEGATIVEUnBarnesville HospitalComment on above:Performed By: #### 30013-4 #### SANTOSH BAI ([id number]) [facility] ([facility]) [address] [place], [place] [address]Ffjdeifn gravity (U) [Rel density]1.908Iotklm2.005-1.035 [facility] HospitalComment on above:Performed By: #### 08663-5 #### SANTOSH BAI ([id number]) [facility] ([facility]) [address] [place], [place] [address]Kwwkdteyxbwx (U) [Mass/Vol]NormalNormalNormalUniversMadison HealthComment on above:Performed By: #### 12398-6 #### SANTOSH BAI ([id number]) [facility] ([facility]) [address] [place], [place] [address]XW Clinical Summaryon [id number] Clinical SummaryED Clinical Summary [address] [address] ED Clinical Summary Person Information Name: JERAD TRACY [place] Age: 49 Years : 1975 Sex: Female Language: Malagasy PCP: MARLEE FITZPATRICK MD Marital Status: Phone: Visit Id: Visit Reason: Back pain; LOWER BACK PAIN. Speciality: Acuity: 4 Enc Type: Emergency Med Service: Emergency Arrival: 03/26/2024 18:36:29 Discharge: 03/26/2024 20:13:04 LOS: 000 01:37 Checkin: 03/26/2024 18:36:29 Checkout: 03/26/2024 20:13:04 Dispo Type: Home (Routine DC) EVENTS: Event Name Event Status Request Date/Time Start Date/Time Complete Date/Time Arrive Complete 03/26/2024 18:36:29 03/26/2024 18:36:29 03/26/2024 18:36:29 Document Home Meds Request 03/26/2024 18:36:29 Triage Complete 03/26/2024 18:36:29 03/26/2024 19:03:57 03/26/2024 19:03:57 Registration Complete 03/26/2024 18:40:35 03/26/2024 18:40:35 03/26/2024 18:40:35 Reg Complete Request 03/26/2024 18:40:35 Reg Bed Request Complete 03/26/2024 18:40:35 03/26/2024 18:40:35 03/26/2024 18:40:35 Bed Assign Complete 03/26/2024 19:10:57 03/26/2024 19:10:57 03/26/2024 19:10:57 Dr Exam Complete 03/26/2024 19:10:57 03/26/2024 19:12:03 03/26/2024 19:12:03 RN Exam Complete 03/26/2024 19:10:57 03/26/2024 19:34:24 03/26/2024 19:34:24 Registration Complete 03/26/2024 19:12:03 03/26/2024 19:42:27 03/26/2024 19:42:27 Meds Admin Complete 03/26/2024 19:40:12 03/26/2024 20:09:55 Discharge Complete 03/26/2024 19:42:17 03/26/2024 20:13:09 03/26/2024 20:13:09 Transfer Complete 03/26/2024 20:13:09 03/26/2024 20:13:09 03/26/2024 20:13:09 ADDRESS: [address] [place] [id number] PHYS DOC NOTES: MEDICAL INFORMATION: Prescriptions Given: New Medications [facility]/pharmacy #[id number], [address] [place], [place] [id number], [phone] methocarbamol (Robaxin 500 mg Tab) 1 Tablets By Mouth 3 times a day for 3 Days. Refills: 0. naproxen (Naprosyn 500 mg Tab) 1 Tablets By Mouth 2 times a day as needed for pain. Refills: 0. Medications to Continue with No Changes Other Medications azithromycin (azithromycin 250 mg Tab) 250 Milligram By Mouth As Directed. Take two tabs by mouth on day one, then one tab daily. Refills: 0. cyclobenzaprine (cyclobenzaprine 10 mg Tab) 1 Tablets By Mouth 3 times a day as needed for spasm. Refills: 0. cyclobenzaprine (cyclobenzaprine 10 mg Tab) [...] day. Refills: 0. PATIENT EDUCATION INFORMATION: Instructions: Chronic Back Pain, Nbaf-zl-Iivl Follow up: With: Address: When: MARLEE FITZPATRICK [address] [place], [place] [address] Business (1) In 3 days 03/29/2024 Comments: Please follow-up with your primary care doctor for further evaluation. Please return to the ED for any new or worsening symptoms. DIAGNOSIS: Acute on chronic back pain; Other chronic painNormalFisher R Adams [facility] ED Note-Physicianon [id number] Note-PhysicianED Note-Physician Basic Information Time Seen: Elisa Sánchez DO 03/26/2024 19:12 Chief Complaint pt c/o lower back pain. pt states she was sitting in the car for a long period of time today. History of Present Illness Patient is a 49-year-old female with past medical history of chronic back pain presenting to the EDfor evaluation of worsening back pain. Patient states she went down to [place] for her birthday states a long car ride aggravated her lower back pain. Patient denies any new falls, injuries or trauma denies any other complaints. Denies bowel or bladder incontinence, saddle anesthesia. Review of Systems A 10 point review of systems is negative except as noted above. Medical and Surgical History: Reviewed and noted Social history: Lives at home Tobacco: Denies Physical Exam Vitals & Measurements T: 36.8 ???C(Oral) HR: 104(Peripheral) RR: 20 BP: 161/105 SpO2: 97% HT: 160 cm WT: 120.4 kg BMI: 47.03 General: Well developed, non toxic appearing, no acute distress HEENT: Head atraumatic, Mucosa moist, hearing grossly normal Neck: No JVD, tracheal deviation Cardiac: Regular rate, rhythm, no murmurs, or gallops, 2+ radial pulses Respiratory: Lungs clear to auscultation B/L, normal respiratory effort Abdomen: Soft non tender, no rebound or guarding, no peritoneal signs Back: Tenderness palpation of the paraspinal musculature of the lower lumbar spine Extremities: No edema noted in the LE B/L, no tenderness to palpation Neurologic: Alert and oriented, speech clear Skin: No rashes or lesions Psych: Appropriate mood and behavior Medical Decision Making MEDICAL DECISION MAKING Number and Complexity of Problems Differential Diagnosis: [] [facility] Data External documents reviewed: [] My EKG interpretation: [] My CT interpretation: [] My X-ray interpretation: [] My Ultrasound interpretation: [] Decision rules/scores evaluated: [] Discussed with: [] Treatment and Disposition ED Course: Patient is a 49-year-old female with chronic back pain presenting to the ED for evaluation of worsening back pain. Patient is nontoxic and on arrival, no acute distress. Patient with acuteon chronic back pain with no injury, no red flag symptoms no concerns for cauda equina. Did review records patient did have a CT of her lumbar spine done on the for similar complaints. Patient'sgiven a dose of oxycodone, Toradol in addition to triamcinolone. I did review patient's [place] she has multiple prescriptions throughout the states from multiple different prescribers I do not feel com fortable writing controlled substances for the patient at this time. She is given prescription for naproxen, Robaxin. She is follow-up with her primary care doctor for further evaluation management. Shared decision making: [] Code status: [] Assessment/Plan Acute on chronic back pain (M54.9: Dorsalgia, unspecified) Other chronic pain (G89.29: Other chronic pain) Orders: ketorolac, 30 mg = 1 mL, Injection, IntraMuscular, Once, Stop date 03/26/24 19:39:00 EST, STAT, Start date 03/26/24 19:39:00 EST, 03/26/24 19:39:00 EST methocarbamol, 500 mg = 1 tab(s), Oral, TID, X 3 day(s), # 9 tab(s), Refills(s) 0, Pharmacy: [facility]/pharmacy #[id number], 160, cm, 03/26/24 19:03:00 EST, Height/Length Dosing, 120.4, kg, 03/26/24 19:03:00 EST, Weight Dosing naproxen, 500 mg = 1 tab(s), Oral, BID, PRN for pain, # 20 tab(s), Refills(s) 0, Pharmacy: [facility]/pharmacy #[id number], 160, cm, 03/26/24 19:03:00 EST, Height/Length Dosing, 120.4, kg, 03/26/24 19:03:00 EST, Weight Dosing oxycodone, 5 mg = 1 tab(s), Tab, Oral, Once, Stop date 03/26/24 19:39:00 EST, STAT, Start date 03/26/24 19:39:00 EST, 03/26/24 19:39:00 EST triamcinolone, 40 mg = 1 mL, Susp-Inj, IntraMuscular, Once, Stop date 03/26/24 19:39:00 EST, STAT, Start date 03/26/24 19:39:00 EST, 03/26/24 19:39:00 EST Disposition Plan Discharge Prescription List Prescriptions Naprosyn 500 mg Tab, 500 mg= 1 tab(s), Oral, BID, PRN Robaxin 500 mg Tab, 500 mg= 1 tab(s), Oral, TID Follow-up With When Contact Information MARLEE FITZPATRICK In 3 days 03/29/[address] [place] [id number] Business (1) Additional Instructions: Please follow-up with your primary care doctor for further evaluation. Please return to the ED for any new or worsening symptoms. Patient Education Chronic Back Pain, Cnki-ro-Rjml Problem List/Past Medical History Ongoing Arthritis of [...] Wellness examination Historical Bipolar Continuous opioid dependence Hepatit (more content not included)...[facility] HospitalComment on above:Result Comment: Electronically Signed By: Elisa Sánchez DO\.br\Date and Time Signed: 03/26/24 19:52 ESTED Patient Summaryon [id number] Patient SummaryED Patient Summary [place] [id number] Patient Discharge Instructions Person Information Name: JERAD TRACY Age: 49 Years Arrival Date: 03/26/2024 18:36:29 Discharge Diagnosis: Acute on chronic back pain; Other chronic pain Primary Care Physician: MARLEE FITZPATRICK MD Provider Information Primary Provider: Elisa Sánchez DO Advanced Dietetic Intern:None The exam and treatment you received in the Emergency Department were for an urgent problem and are not intended as complete care. It is important that you follow up with a doctor, nurse practitioner,or physician???s construction assistant for ongoing care. If your symptoms become worse or you do not improve asexpected and you are unable to reach your usual health care provider, you should return to the Emergency Department. We are available 24 hours a day. JERAD TRACY has been given the following list of patient education materials, prescriptions andfollow-up instructions: Follow-up Instructions: With: Address: When: MARLEE PINOILLON [address] [place], [place] [id number] [facility] () In 3 days 03/29/2024 Comments: Please follow-up with your primary care doctor for further evaluation. Please return to the ED for any new or worsening symptoms. In the event that this physician does not participate in your insurance network, please consult with your insurance company to find a nearby participating provider. Patient Education Materials: Chronic Back Pain, Guuc-kz-Ucnz A MESSAGE TO ALL PATIENTS REGARDING OPIOIDS PRESCRIPTION OPIOIDS: WHAT YOU NEED TO KNOW Prescription opioids can be used to help relieve beovqxgn-pa-llbjpt pain and are often prescribed following a [...] guidance from the Food and Drug Administration (www.fda.gov/Drugs/ResourcesForYou). ??? Visit www.cdc. (more content not included)...[facility] CenterED NOTESon [id number] Ed NoteED Note: Last filed note HNO ID: [id number] Author: Melody Orr RN Service: Emergency Medicine Author Type: Registered Nurse Filed: 03/25/24 2141 Note Text: Patient discharged to home, alert and oriented, skin warm, dry and pink. Denies needs and or questions. Will follow-up as directed, patient encouraged to return for worsening or new symptoms or other concerns.[facility] PROVIDER NOTESon [id number] Ed Provider NoteED Provider Note: Last filed note HNO ID: [id number] Author: Ben Urbina MD Service: Emergency Medicine Author Type: Physician Filed: 03/25/24 191 Note Text: TRIAGE CHIEF COMPLAINT: Chief Complaint Patient presents with Back Pain HPI: Jerad Tracy is a 49 year old female who presents for evaluation of left low back pain. The patient reports just about a month and 1/2 to 2 months ago now she had surgery on her low back. She states this was done up in [place]. She reports she has been doing well since surgery, and has not really needed a lot of medicines. She drove down to the [place] area, and this significantly exacerbated her back pain. She reports the pain is in her left low back and radiates down her leg. She not had any trauma or injuries. No incontinence. No fevers or chills. No nausea or vomiting. No abdominal pain. No other complaints or concerns at this time. Independent Historian: None External Records Review: PDMP - overdose risk score 670. 46 different prescribers in less than 2 years. Near continuous opiate use. PHYSICAL EXAM: VITAL SIGNS: The Initial Triage assessment is as follows: ED Vitals Temp: 98.4 F (36.9 C) (03/25/24 1606) Temp Source: Oral (03/25/24 1606) Pulse: 100 (03/25/24 1606) Resp: 18 (03/25/24 1606) BP: (!) 142/107 (03/25/24 1606) MAP: Noninvasive: 118 mmHg (03/25/24 1606) SpO2: 97 % (03/25/24 1606) Oxygen Source: Rm Air (03/25/24 1606) Vitals during ED course were reviewed and are as charted. Physical Exam Vitals and nursing note reviewed. Constitutional: General: She is not in acute distress. Appearance: She is well-developed. She is not ill-appearing, toxic-appearing or diaphoretic. HENT: Head: Normocephalic and atraumatic. Right Ear: External ear normal. Left Ear: External ear normal. Nose: Nose normal. Eyes: General: No scleral icterus. Right eye: No discharge. Left eye: No discharge. Conjunctiva/sclera: Conjunctivae normal. Neck: Trachea: No tracheal deviation. Cardiovascular: Rate and Rhythm: Normal rate and regular rhythm. Pulses: Normal pulses. Heart sounds: Normal heart sounds. Pulmonary: Effort: Pulmonary effort is normal. No respiratory distress. Breath sounds: Normal breath sounds. No stridor. No wheezing or rales. Abdominal: General: Bowel sounds are normal. There is no distension. Palpations: Abdomen is soft. Tenderness: There is no abdominal tenderness. There is no guarding or rebound. Musculoskeletal: General: Normal range of motion. Cervical back: Normal range of motion. Comments: Well-healed surgical scars over the lumbar spine, some paraspinal tenderness which reproduces patient's symptoms, some discomfort with hip flexion, good pulses and sensation distally Skin: General: Skin is warm and dry. Coloration: Skin is not jaundiced. Neurological: General: No focal deficit present. Mental Status: She is alert and oriented to person, place, and time. Sensory: No sensory deficit. Motor: No weakness. Psychiatric: Mood and Affect: Mood normal. Behavior: Behavior normal. Procedures: ED Studies: No orders to display Labs Reviewed URINALYSIS, REFLEX WITH MICROSCOPIC - Normal ED COURSE Significant PMH: Lumbar spine surgery, near continuous opiate use DDx: Differential diagnosis: Sprain, strain, fracture, dislocation, hematoma, myositis, tendinitis, stress fracture Independent Interpretation of Studies: None Discussion of Management: None Escalation/De-Escalation of Care: Appropriate for outpatient management Billable Critical Care Time: Jerad Tracy is a 49 year old female who presents to the emergency department with low back pain. History, exam as above. On initial evaluation, vitals are reassuring pretrip is well, nontoxic. Exam as above. She is having exacerbation of postoperative low back pain. No trauma. No red flags. Patient treated symptomatically here. She reports significant relief of symptoms on reevaluation. At this time I feel she is appropriate for discharge. She has a pretty high overdose risk score by review of the [facility] program. Will avoid opiate prescriptions today. She was encouraged to follow-up with her surgeon upon returning to [place]. All questions and concerns addressed. Discharged in stable condition. Additional Considerations Affecting Care: none Medications Administered in the Emergency Dept: Medications acetaminophen (TYLENOL EXTRA STR) tablet 1,000 mg (1,000 mg Oral Not Given 03/25/241720) Lidocaine (ASPERCREME) 4 % topical patch 1 Patch (1 Patch Topical Patch Applied 03/25/241721) oxyCODONE (ROXICODONE) IR tablet 5 mg (5 mg Oral Given 03/25/241721) ketorolac (TORADOL) injection 30 mg (30 mg Intramuscular Given 03/25/241721) methocarbamoL (ROBAXIN) tablet 1,500 mg (1,500 mg Oral Given 03/25/241721) Medications to be Initiated at Time of Discharge: Discharge Medication List as of 03/25/2024 6:[address] (more content not included)...[facility] CenterED TRIAGEon [id number] Ed Triage NoteED Triage Note: Last filed note HNO ID: [id number] Author: Soraya Manzanares RN Service: Emergency Medicine Author Type: Registered Nurse Filed: 03/25/24 1601 Note Text: Pt arrives to ED through triage with c/o lower back pain. Pt reports she just had a long car ride and it aggravated her back. Pt has hx of chronic back problems. Pt was seen yesterday in the ED and has been taking the ibuprofen that was prescribed without relief.[facility] URINALYSIS, REFLEX WITH MICROSCOPICon [id number] URINENegativeNormal NegativeOhio State Health System on above:Performed By: #### [id number] ####[place] [phone] BLOOD IN URINE BY AUTOMATED TEST STRIPNegativeNormalNegativeOhio State Health System on above:Performed By: #### [id number] ####[place] [phone] (U)ClearNormalClearOhio State Health System on above:Performed By: #### [id number] ####[place] [phone] (U)YellowNormal Yellow, ColorlessOhio State Health System on above:Performed By: #### [id number] ####[place] [phone] GLUCOSE IN URINE BY AUTOMATED TEST STRIPNegativeNormalNegAdams County Regional Medical Center on above:Performed By: #### [id number] ####[place] [phone], URINENegativeNormal NegativeOhio State Health System on above:Performed By: #### [id number] ####[place] [phone] LEUKOCYTE ESTERASE, URINE BY AUTO TEST STRIPNegativeNormalNegAdams County Regional Medical Center on above:Performed By: #### [id number] ####[place] [phone] Auto test strip Ql (U) NegativeNormalNegAdams County Regional Medical Center on above:Performed By: #### [id number] ####[place] [phone] OF URINE BY AUTOMATED TEST STRIP6.5 pH UnitsNormal 5.0-8.0[facility] on above:Performed By: #### [id number] ####[place] [phone] (U) [Mass/Vol]NegativeNormalNegative, 10MiaOhio State University Wexner Medical CenterComment on above: Performed By: #### [id number] ####[place] [phone] GRAVITY, URINE1.025 UnitsNormal1.005-1.030[facility] Willard HospitalComment on above:Result Comment: Urine specific gravity may be affected by X-ray dye, high glucose, high protein, and some chemotherapeutic drugs. Clinical correlation is recommended.Performed By: #### [id number] ####[place] [phone], URINE<2Normal<2MProMedica Flower HospitalComment on above:Performed By: #### [id number] ####[place] [phone] Clinical Summaryon [id number] Clinical Summary [address] [address] ED Clinical Summary Person Information Name: Jerad Tracy/[facility] Age: 49 Years : 1975 Sex: Female PCP: Marital Status: Phone: Race: White Ethnicity: Not or Language: Malagasy [facility]: [id number] Visit Reason: Back pain; Lower back pain Acuity: 5 Enc Type: Emergency Med Service: Emergency Medicine Arrival: 2024 10:59:20 Discharge: 2024 11:52:00 LOS: 000 00:53 Checkin: 2024 10:59:20 Checkout: 2024 11:52:00 Dispo Type: Left Without Treatment Complete Address: [address] [place] [id number] Provider Notes: Diagnosis: Problems No Problems Documented Smoking Status: Smoking Status 10 or more cigarettes (1/2 pack or more)/day in last 30 days Functional Status: Sensory Deficits: History of Falls: Mobility Assistance Prior to Admission: ADLs: Current Level of Assistance for Self-Care/Mobility: Cognitive Status: Allergies HYDROcodone (hives) penicillin (hives) Laboratory or Other Results This Visit (last charted value for your 2024 visit) No Laboratory or Other Results This Visit Measurements: Height: Weight: 118.5 kg Blood Pressure: /86 mmHg BMI: Procedures No Procedures Documented Immunizations No Immunizations Documented This Visit Final Med List: Medications that have not changed Other Medications dicyclomine (Bentyl 10 mg oral capsule) 1 Capsules Oral (given by mouth) 3 times a day as needed abdominal spasms for 7 Days. Refills: 0. Last Dose: esomeprazole (NexIUM 20 mg oral delayed release capsule) 1 Capsules Oral (given by mouth) every day. Last Dose: methylPREDNISolone (Medrol Dosepak 4 mg oral tablet) 1 Packets Oral (given by mouth) As Indicated for 6 Days. as directed on package labeling. Refills: 0. Last Dose: ondansetron (Zofran 4 mg oral tablet) 1 Tabs Oral (given by mouth) every 8 hours as needed as needed for nausea/vomiting. Refills: 0. Last Dose: Other Medications dicyclomine (Bentyl 10 mg oral [...] Physician: Referring Physician: Provider Role Assigned Unassigned Mono MILES, Abby Romero ED MidLevel 2024 11:19:57 Follow up: Discharge Orders: Patient Education Information: [facility] Poison Help line: . [facility] Hotline: [place] Tobacco Quit Line: [place], [place]) [address]: [phone] [place], [place]) [address]: [phone] [facility] [address] [place], [place]: [phone] [facility] CenterED NOTESon [id number] Ed NoteED Note: Last filed note HNO ID: [id number] Author: Марина Campbell RN Service: ? Author Type: Registered Nurse Filed: 03/24/24 2276 Note Text: Patient discharged to home, alert and oriented, skin warm, dry and pink. Denies needs and or questions. Will follow-up as directed, patient encouraged to return for worsening or new symptoms or other concerns.[facility] Ed NoteED Note: Last filed note HNO ID: [id number] Author: Natalia Srinivasan RN Service: Emergency Medicine Author Type: Registered Nurse Filed: 03/24/24 1648 Note Text: Patient ambulated back to RTS A with a slow but steady gait. Slight limp to left noted.[facility] CenterED Note-Nursingon [id number] Note-NursingRN gave Toradol, pt asked Is there anything else for me? RN told patient We are waiting on pharmacy to verify another medication, I will talk to the provider. A few minutes later RN came to room with Dilaudid, and patient was not in room. RN checked RP and nearby bathroom for patient. Triage tech called provider to notify that the patient walked out. Abby attempted to reach the patient via phone call to inform patient that we were not finished with her care, patient did not answer phone call, but voicemail was left. Dilaudid was not given to the patient and returned to the MAR. Patient did state previously that she has an appointment scheduled with pain management next week. Electronically signed by Taylor Dan 03/24/24 12:17 [facility]ED Note-Physicianon [id number] Note-PhysicianChief Complaint Pt has lower back pain, pt states that the er and took out L4 and shaved down L5. Ptreports that she was playing with the [employer]. History of Present Illness Patient presents to ED c/o acute on chronic low back pain starting last night. She reports having surgery on 02-06-24 where L4 was removed and states she had been doing well. Patient is currently here visiting family for a few weeks and states she typically gets flares of her pain when traveling and is around her grandchildren. She denies injury, bruising, swelling, abdominal pain, dysuria, hematuria, incontinence, weakness, numbness and fever. Symptoms are aggravated by movement/pressure and alleviated by rest. Patient has had similar symptoms in the past, she takes Oxycodone at home for herpain but states she does not travel with it. Review of Systems General: [Negative for fever, [...] : [Negative for frequency, dysuria, hematuria, hesitancy] Musculoskeletal/Extremity: [Negative for injury, pain, decreased range of [...] raises normal] : [No costovertebral angle tenderness] Musculoskeletal/Extremity: [Extremities are non-tender to palpation, no gross deformity, no edema, no erythema. Normal range of motion. Pulses and sensation intact] Skin: [[place], warm, dry, no injury, no rashes] Neuro: [Alert and oriented x 3, GCS 15, Normal mentation and speech. Moves all extremities w/out motor or sensory deficit, gait is steady, strength normal in all extremities] Psych: [Normal mood and affect, thought process is clear and linear] All other systems reviewed are negative and normal Vitals & Measurements T: 36.7 ?C (Oral) HR: 84 (Peripheral) RR: 15 BP: 134/86 SpO2: 95% HT: 160 cm WT: 118.5 kg (Dosing) Additional Vitals No qualifying data available. Medical Decision Making MEDICAL DECISION MAKING Number and Complexity of Problems Differential Diagnosis: acute on chronic back pain MDM Data External documents reviewed: previous ED notes My EKG interpretation: _ My CT interpretation: _ My X-ray interpretation: _ My Ultrasound interpretation: _ Decision rules/scores evaluated: _ Discussed with: _ Decision rules/scores evaluated: _ ? HEART Score: Not Completed ? PERC Rule: _ ? NEXUS C-spine Criteria: _ ? [place] Ankle Rule: _ ? [place] Knee Rule: _ ? Wells Criteria for DVT: _ ? Wells Criteria for PE: _ Discussed with: _ Treatment and Disposition ED Course: _Patient presents to ED c/o acute on chronic low back pain starting last night. She reports having surgery on 02-06-24 where L4 was removed and states she had been doing well. Patient is currently here visiting family for a few weeks and states she typically gets flares of her pain when traveling and is around her grandchildren. She denies injury, bruising, swelling, abdominal pain, dysuria, hematuria, incontinence, weakness, numbness and fever. Symptoms are aggravated by movement/pressure and alleviated by rest. Patient has had similar symptoms in the past, she takes Oxycodone at home for her pain but states she does not travel with it. Low back is diffusely tender on exam. Vitals are stable, patient diffusely tender on exam. Patient here strictly requesting her injections shehas received in the past as this significantly improves her symptoms and will follow up w/her provider at home. Patient received one injection and while awaiting secon (more content not included)...[facility] SystemED PROVIDER NOTESon [id number] Ed Provider NoteED Provider Note: Last filed note HNO ID: [id number] Author: Janay Yen MD Service: Emergency Medicine Author Type: Physician Filed: 03/29/24 1500 Note Text: TRIAGE CHIEF COMPLAINT: Chief Complaint Patient presents with Back Pain HPI: Jerad Tracy is a 49 year old female who presents complaining of back pain. She is currently visiting from out of state. She says she drove several hours down to visit a friend and, and because of the drive this irritated her chronic back issues. Denies any numbness or ting. She is complaining of pain in her lower lumbar moderate, worse on the left side. Denies any leg weakness, numbness or tingling. Denies difficulty urinating. Review Of Symptoms Otherwise Negative PAST MEDICAL HISTORY: Past Medical History: Diagnosis Date Chronic back pain Liver fibrosis FAMILY HISTORY: History reviewed. No pertinent family history. SOCIAL HISTORY: Social History Socioeconomic History Marital status: Legally Spouse name: Not on file Number of children: Not on file Years of education: Not on file Highest education level: Not on file Occupational History Not on file Tobacco Use Smoking status: Every Day Current packs/day: 0.50 Average packs/day: 0.5 packs/day for 35.0 years (17.5 ttl pk-yrs) Types: Cigarettes Start date: 03/25/1989 Smokeless tobacco: Never Vaping Use Vaping status: Never Used Substance and Sexual Activity Alcohol use: Not Currently Drug use: Never Sexual activity: Not on file Other Topics Concern Not on file Social History Narrative Not on file Social Drivers of Health Financial Resource Strain: Low Risk (01/28/2024) Received from [facility] Overall Financial Resource Strain (CARDIA) Difficulty of Paying Living Expenses: Not very hard Food Insecurity: No Food Insecurity (01/28/2024) Received from [facility] Hunger Vital Sign Worried About Running Out of Food in the Last Year: Never true Ran Out of Food in the Last Year: Never true Transportation Needs: No Transportation Needs (01/28/2024) Received from [facility] PRAPARE - Transportation Lack of Transportation (Medical): No Lack of Transportation (Non-Medical): No Physical Activity: Inactive (01/28/2024) Received from [facility] Exercise Vital Sign Days of Exercise per Week: 0 days Minutes of Exercise per Session: 0 min Stress: No Stress Concern Present (01/28/2024) Received from [facility] [place] [employer] - Occupational Stress Questionnaire Feeling of Stress : Not at all Social Connections: Socially Isolated (01/28/2024) Received from [facility] Social Connection and Isolation Panel [NHANES] Frequency of Communication with Friends and Family: More than three times a week Frequency of Social Gatherings with Friends and Family: Once a week Attends Orthodox Services: Never Active Member of Clubs or Organizations: No Attends Club or Organization Meetings: Never Marital Status: Intimate Partner Violence: Not At Risk (01/28/2024) Received from [facility] Humiliation, Afraid, Rape, and Kick questionnaire Fear of Current or Ex-Partner: No Emotionally Abused: No Physically Abused: No Sexually Abused: No Housing Stability: Low Risk (01/28/2024) Received from [facility] Housing Stability Vital Sign Unable to Pay for Housing in the Last Year: No Number of Times Moved in the Last Year: 0 Homeless in the Last Year: No SURGICAL HISTORY: Past Surgical History: Procedure Laterality Date Myringotomy Other Surgical History L4 removal and shaved down L5 REMOVAL GALLBLADDER REMOVAL OF TONSILS,14+ Y/O VAG HYST 250 GM/< CURRENT MEDICATIONS: Home medications reviewed. ALLERGIES: Hydrocodone-acetaminophen and Penicillin g PHYSICAL EXAM: Physical Exam Constitutional: General: She is not in acute distress. HENT: Head: Atraumatic. Mouth/Throat: Mouth: Mucous membranes are moist. Cardiovascular: Rate and Rhythm: Normal rate and regular rhythm. Pulses: Normal pulses. Heart sounds: Normal heart sounds. Pulmonary: Effort: Pulmonary effort is normal. Breath sounds: Normal breath sounds. Abdominal: General: Abdomen is flat. Palpations: Abdomen is soft. Musculoskeletal: General: Tenderness (lumbar mid line) present. Right lower leg: No edema. Left lower leg: No edema. Skin: General: Skin is warm and dry. Neurological: General: No focal deficit present. Mental Status: She is alert and oriented to person, place, and time. Mental status is at baseline. Cranial Nerves: No cranial nerve deficit. Sensory: No sensory deficit. Motor: No weakness. Radiology / Procedures: No orders to display Labs Reviewed - No data to display ED COURSE / MEDICAL DECISION M (more content not included)...[facility] CenterED TRIAGEon [id number] Ed Triage NoteED Triage Note: Last filed note HNO ID: [id number] Author: Valencia Persaud, RN Service: ? Author Type: Registered Nurse Filed: 03/24/24 8061 Note Text: Pt arrives ambulatory to triage with a slow gait. Pt reports chronic lower back pain but that it is unbearable after driving 3.5 hours . Pt denies injury to area. Pt took ibuprofen 800 AO.[facility] CenterED Note-Physicianon [id number] Note-PhysicianED Note-Physician Basic Information Time Seen: Manuel Naik PA-C 03/21/2024 13:06 Chief Complaint pt. seen here for continued L leg issues, states she feels like her L leg is weaker after she fell that day. scheduled to see her doctor in Apr. History of Present Illness Patient is a 48-year-old female that presents today for evaluation of her increasing lower back pain and left leg pain and weakness. She was seen here on couple of days ago after a falland had x-rays that were negative. She was given some medication that day with improvement of her pain but her pain has continued to increase ever since. She states that she feels as though her left leg is progressively getting weaker. She did try to contact her spine surgeon who has done previous procedures on her but they told her to present to the nearest ER. Scheduled to see her spine surgeonin April but is trying to move this up since the fall. Denies any saddle anesthesia, loss of bowel or bladder control. Does state that the left thigh is numb. Review of Systems No other aggravating or relieving factors no other associated symptoms no other prior treatments orcomplaints. Family: Reviewed and noncontributory Social: lives at home Review of systems negative unless otherwise specified in the HPI. Physical Exam Vitals & Measurements T: 36.7 ???C(Oral) HR: 98(Peripheral) RR: 18 BP: 142/91 SpO2: 94% HT: 160 cm WT: 120.1 kg BMI: 46.91 Vital Signs reviewed and noted. General: Alert, no acute distress, patient resting comfortably Skin: warm, intact, no pallor noted Head: Normocephalic, atraumatic Eye: Normal conjunctiva Cardiac: Normal peripheral perfusion Respiratory: No acute distress Musculoskeletal: No deformity, full ROM. Lumbar spine: There is no focal tenderness to palpation throughout the lumbar spine. There is paraspinal musculature tenderness noted with some spasming of the soft tissues on the left. Positive straight leg raise left. No step-off or crepitus appreciated. Intact strength and sensation to bilaterallower extremities. Neurological: alert and oriented, normal sensory and motor observed. Psychiatric: Cooperative Medical Decision Making Patient is a 48-year-old female presents today for evaluation of increasing lower back pain and left leg pain and weakness. She was seen here after a fall and had x-rays that were negative. She has had increased pain and weakness in the left leg ever since. She does have a history of spine surgery and contact her spine surgeon who told her to go to the nearest ER. Denies any signs or symptoms concerning for cauda equina syndrome. On exam the patient is afebrile nontoxic-appearing.No focal tender mass to palpation throughout the lumbar spine but there is paraspinal musculature tenderness with spasming on the left. Positive straight leg raise on the left. Intact strength and sensation to bilateral lower extremities. CT of the lumbar spine without contrast demonstrates no acute traumatic abnormality or interval change from previous CT scan. Patient was given a dose of IM morphine and orphenadrine with improvement of her pain. She will be provided with 2 days worth of Percocet to be used until she can see her spine surgeon on Saturday. Return to ED precautions were reviewed with the patient at length. Assessment/Plan Low back pain (M54.50: Low back pain, unspecified) Lumbar radiculopathy (M54.16: Radiculopathy, lumbar region) Orders: acetaminophen-oxycodone, 1 tab(s), Oral, q6hr for 3 day(s), 8 tab(s), Refill(s) 0, [facility]pharm[facility] #[id number], 160, cm, 03/21/24 12:57:00 EST, Height/Length Dosing, 120.1, kg, 03/21/24 12:57:00 EST, Weight Dosing morphine, 4 mg = 1 mL, Injection, IntraMuscular, Once, Stop date 03/21/24 13:31:00 EST, STAT, Startdate 03/21/24 13:31:00 EST, 03/21/24 13:31:00 EST orphenadrine, 60 mg = 2 mL, Injection, IntraMuscular, Once, Stop date 03/21/24 13:31:00 EST, STAT, Start date 03/21/24 13:31:00 EST, 03/21/24 13:31:[address] Spine Lumbar w/o Contrast Medications Administered Given morphine 4 mg/mL Inj, 4 mg, IntraMuscular orphenadrine 30 mg/mL Inj, 60 mg, IntraMuscular Disposition Plan Patient Discharge Condition Stable, improved Discharge Disposition Home Discharge Prescription List Prescriptions Percocet 5 mg-325 mg oral tablet, 1 tab(s), Oral, q6hr Follow-up With When Contact Information MARLEE FITZPATRICK In 3 days [address] [place] [phone] Business (1) Additional Instructions: Patient Education Acute Back Pain, Adult Attestation Patient seen and evaluated by the physician construction assistant. Attending physician was present in the emergency department and supervised care. This visit was performed by both the physician and an APC. I performed all aspects of the MDM as documented. This report was transcribed using voice recognition software. Every effort was made to ensure accuracy, however, inadvertentl (more content not included)... [facility] HospitalComment on above:Result Comment: Electronically Signed By: Manuel Naik PA-C\.br\Date and Time Signed: 03/21/2415:28 EST\.br\Electronically Co-Signed By: Jorge Mcintosh DO\.br\Date and Time Co- Signed: 03/23/24 07:20 ESTCT Spine Lumbar w/o Contraston [id number] Spine Lumbar w/o ContrastExam Date/Time: 03/21/2024 14:15 EST Reason for Exam: Radiculopathy Report IMPRESSION: NO ACUTE OSSEOUS ABNORMALITY OR SIGNIFICANT INTERVAL CHANGE. EXAMINATION: CT Spine Lumbar w/o Contrast HISTORY: Low back pain. Left leg weakness. TECHNIQUE: Multiple contiguous axial images were obtained of the lumbar spine without contrast . Multiplanar reformats were obtained. COMPARISON: CT lumbar spine 09/25/2023 and lumbar spine radiographs 03/18/2024 FINDINGS: No acute fracture or malalignment. Degenerative disc disease at L4-L5 and multilevel facet arthropathy again identified and not significant changed. Postsurgical changes of posterior decompression at L5-S1. Degenerative changes of the sacroiliac joints. Spinal cord stimulator is present. Paraspinal soft tissues appear within normal limits. Stable bilateral adrenal adenomas. All CT scans at this facility use dose modulation, iterative reconstruction, and/or weight based dosing when appropriate to reduce radiation dose to as low as reasonably achievable. Ordering Provider: Manuel Naik FINAL REPORT Dictated: 03/21/2024 2:28 pm Francisco J Mccoy DO Signed (Electronic Signature): 03/21/2024 2:28 pm Signed by: Francisco J Mccoy DO Transcribed by: KIERRA Technologist: Chriss [facility] Clinical Summaryon [id number] Clinical SummaryED Clinical Summary [address] [address] ED Clinical Summary Person Information Name: JERAD TRACY [place] Age: 48 Years : 1975 Sex: Female Language: Malagasy PCP: MARLEE FITZPATRICK MD Marital Status: Phone: Visit Id: Visit Reason: Weakness or fatigue; Leg pain-swelling; LOWER BACK PAIN/ NO FEELING IN LEFT LEG Speciality: Acuity: 4 Enc Type: Emergency Med Service: Emergency Arrival: 03/21/2024 12:36:39 Discharge: 03/21/2024 15:18:57 LOS: 000 02:42 Checkin: 03/21/2024 12:36:39 Checkout: 03/21/2024 15:18:57 Dispo Type: Home (Routine DC) EVENTS: Event Name Event Status Request Date/Time Start Date/Time Complete Date/Time Arrive Complete 03/21/2024 12:36:39 03/21/2024 12:36:39 03/21/2024 12:36:39 Document Home Meds Request 03/21/2024 12:36:39 Triage Complete 03/21/2024 12:36:39 03/21/2024 12:57:17 03/21/2024 12:57:17 EKG Cancel 03/21/2024 12:55:48 03/21/2024 13:43:45 Bed Assign Complete 03/21/2024 13:06:14 03/21/2024 13:06:14 03/21/2024 13:06:14 Dr Exam Complete 03/21/2024 13:06:14 03/21/2024 13:06:49 03/21/2024 13:06:49 RN Exam Complete 03/21/2024 13:06:14 03/21/2024 13:08:46 03/21/2024 13:08:46 Registration Complete 03/21/2024 13:06:49 03/21/2024 13:29:38 03/21/2024 13:29:38 Dr Exam Complete 03/21/2024 13:08:08 03/21/2024 13:08:08 03/21/2024 13:08:08 Reg Complete Request 03/21/2024 13:29:38 Reg Bed Request Complete 03/21/2024 13:29:38 03/21/2024 13:29:38 03/21/2024 13:29:38 Meds Admin Complete 03/21/2024 13:32:08 03/21/2024 14:02:50 CT Complete 03/21/2024 13:32:08 03/21/2024 13:51:15 03/21/2024 14:15:33 Discharge Complete 03/21/2024 15:03:23 03/21/2024 15:19:03 03/21/2024 15:19:03 Transfer Complete 03/21/2024 15:19:03 03/21/2024 15:19:03 03/21/2024 15:19:03 ADDRESS: [address] [facility] [id number] PHYS DOC NOTES: MEDICAL INFORMATION: Prescriptions Given: New Medications [id number], [address] [place], [place] [id number], [phone] acetaminophen-oxycodone (Percocet 5 mg-325 mg oral tablet) 1 Tablets By Mouth every 6 hours for 3 Days. Refills: 0. Medications to Continue with No Changes Other Medications azithromycin (azithromycin 250 mg Tab) 250 Milligram By Mouth As Directed. Take two tabs by mouth on day one, then one tab daily. Refills: 0. cyclobenzaprine (cyclobenzaprine 10 mg Tab) 1 Tablets By Mouth 3 times a day as needed for spasm. Refills: 0. cyclobenzaprine (cyclobenzaprine 10 mg Tab) [...] day. Refills: 0. PATIENT EDUCATION INFORMATION: Instructions: Acute Back Pain, Adult Follow up: With: Address: When: MARLEE FITZPATRICK [address] [place], [place] [id number] Gravitant (1[employer] In 3 days 2024 DIAGNOSIS: Low back pain; Lumbar radiculopathyNormalFisher Sal Medical CenterED Note-Physicianon [id number] Note-PhysicianED Note-Physician Basic Information Time Seen: Matthew MILES, Zhane Enriquez 03/18/2024 18:21 Chief Complaint pt presents with back pain after slipping on wrapping paper and landing on bottom. pain 8/10 on numeric pain scale. History of Present Illness Patient is a 48-year-old female with a history of bipolar disorder, chronic back pain, and hepatitis C who presents to the ED with left lower back pain that began this morning. Patient states she waswrapping presents, when she slipped on wrapping paper, landing on her back. Patient denies hitting her head or loss of consciousness. She states she has been taking ibuprofen with minimal relief in symptoms. Patient rates the pain an 8 out of 10. She denies any numbness/tingling, saddle anesthesia,changes urination, or loss of bowel control. Review of Systems A 10 point review of systems is negative except as noted above. Medical and Surgical History: Reviewed and noted Social history: Lives at home Family History: Reviewed. Tobacco: Denies Physical Exam Vitals & Measurements T: 36.6 ???C(Oral) HR: 83(Peripheral) RR: 16 BP: 121/67 SpO2: 95% HT: 160 cm WT: 120.1 kg BMI: 46.91 General: The patient appears tearful Skin: Warm, dry, no pallor noted. Head: Normocephalic, atraumatic Neck: No JVD, no midline spinal tenderness to palpation Eye: PERRLA, EOMI ENT: Moist mucus membranes Cardiovascular: Regular rate normal peripheral perfusion Respiratory: No respiratory distress no accessory muscle use no obvious audible wheezing Musculoskeletal: normal ROM, no deformity, no swelling, tenderness to palpation over the left SI joint, full range of motion of the lower extremities bilaterally, 5/5 handgrip bilaterally, neurovascularly intact GI: Soft no obvious distention. No rebound or rigidity. No guarding. No tenderness. Neurological: A&O moves all extremities equal strength and symmetry Psychiatric: Cooperative and appropriate Medical Decision Making Patient is a 48-year-old female with a history of bipolar disorder, chronic back pain, and hepatitis C who presents to the ED with left lower back pain that began this morning. Patient is hemodynamically stable and afebrile. On exam there is tenderness to palpation over the left SI joint. Patient is given morphine for pain. Lumbosacral x-ray does not show any acute osseous abnormalities. Patient was updated on results. She is being prescribed Flexeril to use as needed. She will follow-up with her family physician within the next 2 to 3 days. She was advised to return to the ED with any new orworsening symptoms. Patient is agreeable with the plan and all questions were answered. Assessment/Plan Acute left-sided low back pain (M54.50: Low back pain, unspecified) Orders: cyclobenzaprine, 10 mg = 1 tab(s), Oral, TID, PRN for spasm, # 15 tab(s), Refills(s) 0, Pharmacy: [facility]/pharmacy #[id number], 160, cm, 03/18/24 18:28:00 EST, Height/Length Dosing, 120.1, kg, 03/18/24 18:28:00 EST, Weight Dosing morphine, 4 mg = 1 mL, Injection, IntraMuscular, Once, Stop date 03/18/24 18:52:00 EST, STAT, Startdate 03/18/24 18:52:00 EST, 03/18/24 18:52:00 EST XR Spine Lumbosacral 2 or 3 Views Medications Administered Given morphine 4 mg/mL Inj, 4 mg, IntraMuscular Disposition Plan Patient Discharge Condition stable/improved Discharge Disposition home Discharge Prescription List Prescriptions cyclobenzaprine 10 mg Tab, 10 mg= 1 tab(s), Oral, TID, PRN Follow-up With When Contact Information MARLEE FITZPATRICK In 3 days 03/21/2024 EST [address] [place] [phone]- Business (1) Additional Instructions: Call to schedule a follow-up appointment with your back surgeon. Use the Flexeril as needed for pain management. Return to the ED with any new or worsening symptoms. Patient Education Acute Back Pain, Adult Attestation Patient seen and evaluated by the physician construction assistant. Attending physician was present in the emergency department and supervised care. This visit was performed by both the physician and an APC. I performed all aspects of the MDM as documented. This report was transcribed using voice recognition software. Every effort was made to ensure accuracy, however, inadvertently computerized bill recapitulation clerk mistakes may be present. I performed a substantive part of the [...] Encounter for screening mammogram for breast cancer Fatig (more content not included)...[facility] HospitalComment on above:Result Comment: Electronically Signed By: Zhane Castro PA-C\.br\Date and Time Signed: 03/18/2419:24 EST\.br\Electronically Co-Signed By: Jorge Mcintosh DO\.br\Date and Time Co-Signed: 03/21/24 07:22 DARYN Patient Summaryon [id number] Patient SummaryED Patient Summary [place] [id number] Patient Discharge Instructions Person Information Name: JERAD TRACY Age: 48 Years Arrival Date: 03/21/2024 12:36:39 Discharge Diagnosis: Low back pain; Lumbar radiculopathy Primary Care Physician: MARLEE FITZPATRICK MD Provider Information Primary Provider: Jorge Mcintosh DO Advanced Dietetic Intern:Gumaro MILES, Manuel Hernandez. The exam and treatment you received in the Emergency Department were for an urgent problem and are not intended as complete care. It is important that you follow up with a doctor, nurse practitioner,or physician???s construction assistant for ongoing care. If your symptoms become worse or you do not improve asexpected and you are unable to reach your usual health care provider, you should return to the Emergency Department. We are available 24 hours a day. JERAD TRACY has been given the following list of patient education materials, prescriptions andfollow-up instructions: Follow-up Instructions: With: Address: When: MARLEE KOROMAN [address] [place] [phone] Business (1) In 3 days 2024 In the event that this physician does not participate in your insurance network, please consult with your insurance company to find a nearby participating provider. Patient Education Materials: Acute Back Pain, Adult A MESSAGE TO ALL PATIENTS REGARDING OPIOIDS PRESCRIPTION OPIOIDS: WHAT YOU NEED TO KNOW Prescription opioids can be used to help relieve vpuailsm-vh-bfexyf pain and are often prescribed following a [...] guidance from the Food and Drug Administration (www.fda.gov/Drugs/ResourcesForYou). ??? Visit www.cdc.gov/drugoverdose to learn about the risks of opioids abuse and overdose. ??? If you believe you may be struggling with addiction, tell your heal (more content not included)...NormalOhiohealth Berger HospitalCT LUMBAR SPINE WO IV CONTRASTon [id number] LUMBAR SPINE WO IV CONTRASTSTUDY: CT Lumbar Spine without IV Contrast; 03/19/2024 at INDICATION: Trauma evaluation status post fall. COMPARISON: CT lumbar spine 03/09/24, 12/21/23, 12/15/23, 11/13/23, 11/09/23. CT abdomen and pelvis with lumbar spine 12/07/23. ACCESSION NUMBER(S): [id number] ORDERING CLINICIAN: MAYRA POST TECHNIQUE: CT of the lumbar spine was performed without intravenous or intrathecal contrast. Sagittal and coronal reconstructions were generated. Automated mA/kV exposure control was utilized and patient examination was performed in strict accordance with principles of ALARA. FINDINGS: The alignment is anatomic. There is no fracture or traumatic subluxation. The vertebral body heights are well maintained. There is disc space narrowing at L4-5 and L5-S1 with posterior disc osteophyte formation. There is evidence of left laminectomy and foraminotomy at L4. There is facet arthrosis predominantly at L4-5 and L5-S1. Evaluation of the central canal is limited due to lack of intrathecal contrast. At L3-L4 there is mild annular disc bulge and mild facet arthrosis. Central canal is patent. There is no significant neural foraminal stenosis. At L4-5 there is posterior disc osteophyte formation. Central canal is decompressed. There is questionable gas within the epidural space related to prior laminectomy. There is advanced bilateral neural foraminal stenosis. At L5-S1 there is broad-based disc bulge and advanced facet arthrosis. Central canal is patent with advanced right and moderate left neural foraminal stenosis. The paravertebral soft tissues are within normal limits. The visualized abdomen is unremarkable. IMPRESSION: No acute fracture or malalignment. Degenerative changes as described predominantly at L4-5 and L5-S1. Signed by Arnoldo Lopez, [facility] CT Lumbar spine WO contraston [id number] acute fracture or malalignment. Degenerative changes as described predominantly at L4-5 and L5-S1. Signed by Arnodlo Lopez, [facility] TELERADIOLOGYSTUDY: CT Lumbar Spine without IV Contrast; 03/19/2024 at INDICATION: Trauma evaluation status post fall. COMPARISON: CT lumbar spine 03/09/24, 12/21/23, 12/15/23, 11/13/23, 11/09/23. CT abdomen and pelvis with lumbar spine 12/07/23. ACCESSION NUMBER(S): [id number] ORDERING CLINICIAN: MAYRA POST TECHNIQUE: CT of the lumbar spine was performed without intravenous or intrathecal contrast. Sagittal and coronal reconstructions were generated. Automated mA/kV exposure control was utilized and patient examination was performed in strict accordance with principles of ALARA. FINDINGS: The alignment is anatomic. There is no fracture or traumatic subluxation. The vertebral body heights are well maintained. There is disc space narrowing at L4-5 and L5-S1 with posterior disc osteophyte formation. There is evidence of left laminectomy and foraminotomy at L4. There is facet arthrosis predominantly at L4-5 and L5-S1. Evaluation of the central canal is limited due to lack of intrathecal contrast. At L3-L4 there is mild annular disc bulge and mild facet arthrosis. Central canal is patent. There is no significant neural foraminal stenosis. At L4-5 there is posterior disc osteophyte formation. Central canal is decompressed. There is questionable gas within the epidural space related to prior laminectomy. There is advanced bilateral neural foraminal stenosis. At L5-S1 there is broad-based disc bulge and advanced facet arthrosis. Central canal is patent with advanced right and moderate left neural foraminal stenosis. The paravertebral soft tissues are within normal limits. The visualized abdomen is unremarkable. TELERADIOLOGYArnoldo Lopez, - 03/19/2024 STUDY: CT Lumbar Spine without IV Contrast; 03/19/2024 at INDICATION: Trauma evaluation status post fall. COMPARISON: CT lumbar spine 03/09/24, 12/21/23, 12/15/23, 11/13/23, 11/09/23. CT abdomen and pelvis with lumbar spine 12/07/23. ACCESSION NUMBER(S): [id number] ORDERING CLINICIAN: MAYRA POST TECHNIQUE: CT of the lumbar spine was performed without intravenous or intrathecal contrast. Sagittal and coronal reconstructions were generated. Automated mA/kV exposure control was utilized and patient examination was performed in strict accordance with principles of ALARA. FINDINGS: The alignment is anatomic. There is no fracture or traumatic subluxation. The vertebral body heights are well maintained. There is disc space narrowing at L4-5 and L5-S1 with posterior disc osteophyte formation. There is evidence of left laminectomy and foraminotomy at L4. There is facet arthrosis predominantly at L4-5 and L5-S1. Evaluation of the central canal is limited due to lack of intrathecal contrast. At L3-L4 there is mild annular disc bulge and mild facet arthrosis. Central canal is patent. There is no significant neural foraminal stenosis. At L4-5 there is posterior disc osteophyte formation. Central canal is decompressed. There is questionable gas within the epidural space related to prior laminectomy. There is advanced bilateral neural foraminal stenosis. At L5-S1 there is broad-based disc bulge and advanced facet arthrosis. Central canal is patent with advanced right and moderate left neural foraminal stenosis. The paravertebral soft tissues are within normal limits. The visualized abdomen is unremarkable. IMPRESSION: No acute fracture or malalignment. Degenerative changes as described predominantly at L4-5 and L5-S1. Signed by Arnoldo Lopez DO [facility] Work Phone: Radiology Study observation (narrative)[facility] Work Phone: CT Lumbar spine WO contrastOrdered By: Arnoldo Lopez on [id number] [facility] Hospital Work Phone: XR Spine Lumbosacral 2 or 3 Viewson [id number] Spine Lumbosacral 2 or 3 ViewsExam Date/Time: 03/18/2024 19:07 EST Reason for Exam: Back pain Report IMPRESSION: NO ACUTE OSSEOUS ABNORMALITY OR SIGNIFICANT INTERVAL CHANGE. EXAMINATION: XR Spine Lumbosacral 2 or 3 Views TECHNIQUE: AP, lateral, bilateral oblique views of the lumbar spine and AP and lateral coned down view of the lumbosacral junction HISTORY: Low back pain COMPARISONS: Radiographs 08/15/2023 FINDINGS: Lumbar spine alignment is within normal limits. Intervertebral disc height loss at L4-L5 and L5-S1 and facet arthropathy of the lower lumbar spine demonstrate no significant interval change. Intervertebral disc heights are preserved. No acute fracture. No spondylolysis or spondylolisthesis. Ordering Provider: Zhane Castro FINAL REPORT Dictated: 03/19/2024 9:19 am Francisco J Mccoy DO Signed (Electronic Signature): 03/19/2024 9:19 am Signed by: Francisco J Mccoy DO Transcribed by: KIERRA Technologist: NELI Technical Comments Radiation Dose: Ka,r in mGy = 0 DAP = 0NormalFisher [facility] Clinical Summaryon [id number] Clinical SummaryED Clinical Summary [place] [id number] ED Clinical Summary Person Information Name: JERAD TRACY Tasha/[facility] Age: 48 Years : 1975 Sex: Female Language: Malagasy PCP: MARLEE FITZPATRICK MD Marital Status: Phone: Visit Id: Visit Reason: Fall; Back pain; FELL ON A TOY, BACK PAIN Speciality: Acuity: 4 Enc Type: Emergency Med Service: Emergency Arrival: 03/18/2024 18:11:28 Discharge: 03/18/2024 19:27:19 LOS: 000 01:16 Checkin: 03/18/2024 18:11:28 Checkout: 03/18/2024 19:27:19 Dispo Type: Home (Routine DC) EVENTS: Event Name Event Status Request Date/Time Start Date/Time Complete Date/Time Arrive Complete 03/18/2024 18:11:28 03/18/2024 18:11:28 03/18/2024 18:11:28 Document Home Meds Request 03/18/2024 18:11:28 Triage Complete 03/18/2024 18:11:28 03/18/2024 18:28:31 03/18/2024 18:28:31 Bed Assign Complete 03/18/2024 18:20:19 03/18/2024 18:20:19 03/18/2024 18:20:19 Dr Exam Complete 03/18/2024 18:20:19 03/18/2024 18:21:02 03/18/2024 18:21:02 RN Exam Complete 03/18/2024 18:20:19 03/18/2024 18:30:33 03/18/2024 18:30:33 Registration Complete 03/18/2024 18:21:02 03/18/2024 18:42:14 03/18/2024 18:42:14 Dr Exam Complete 03/18/2024 18:24:30 03/18/2024 18:24:30 03/18/2024 18:24:30 Reg Complete Request 03/18/2024 18:42:14 Reg Bed Request Complete 03/18/2024 18:42:14 03/18/2024 18:42:14 03/18/2024 18:42:14 X-Ray Complete 03/18/2024 18:50:59 03/18/2024 18:51:58 03/18/2024 19:07:46 Meds Admin Complete 03/18/2024 18:52:34 03/18/2024 19:09:19 Wet Read Request 03/18/2024 19:07:46 Discharge Complete 03/18/2024 19:23:15 03/18/2024 19:27:26 03/18/2024 19:27:26 Transfer Complete 03/18/2024 19:27:26 03/18/2024 19:27:26 03/18/2024 19:27:26 ADDRESS: [address] [place], [place] [address]Jazmine [facility] [phone] PHYS DOC NOTES: MEDICAL INFORMATION: Prescriptions Given: Medications to Continue Taking That Have Changed [facility]/pharmacy #[id number], [address] [place], [place] [id number], [phone] START: cyclobenzaprine (cyclobenzaprine 10 mg Tab) 1 Tablets By Mouth 3 times a day as needed for spasm. Refills: 0. Other Medications START: cyclobenzaprine (cyclobenzaprine 10 mg Tab) 1 Tablets By Mouth 3 times a day as needed for spasm. Refills: 0. Medications to Continue with No Changes Other Medications azithromycin (azithromycin 250 mg Tab) 250 Milligram By Mouth As Directed. Take two tabs by mouth on day one, then one tab daily. Refills: 0. dicyclomine (Bentyl 10 mg Cap) [...] day. Refills: 0. PATIENT EDUCATION INFORMATION: Instructions: Acute Back Pain, Adult Follow up: With: Address: When: MARLEE FITZPATRICK [address] [place] [address] [facility] () In 3 days 03/21/2024 Comments: Call to schedule a follow-up appointment with your back surgeon. Use the Flexeril as needed for pain management. Return to the ED with any new or worsening symptoms. DIAGNOSIS: Acute left-sided low back painNoTriHealth CenterED Patient Summaryon [id number] Patient SummaryED Patient Summary [place] [id number] Patient Discharge Instructions Person Information Name: JERAD TRACY Age: 48 Years Arrival Date: 03/18/2024 18:11:28 Discharge Diagnosis: Acute left-sided low back pain Primary Care Physician: MARLEE FITZPATRICK MD Provider Information Primary Provider: Jorge Mcintosh DO Advanced Dietetic Intern:Zhane Castro PA-C The exam and treatment you received in the Emergency Department were for an urgent problem and are not intended as complete care. It is important that you follow up with a doctor, nurse practitioner,or physician???s construction assistant for ongoing care. If your symptoms become worse or you do not improve asexpected and you are unable to reach your usual health care provider, you should return to the Emergency Department. We are available 24 hours a day. JERAD TRACY has been given the following list of patient education materials, prescriptions andfollow-up instructions: Follow-up Instructions: With: Address: When: MARLEE FITZPATRICK [address] [place], [place] [id number] Business (1) In 3 days 03/21/2024 Comments: Call to schedule a follow-up appointment with your back surgeon. Use the Flexeril as needed for pain management. Return to the ED with any new or worsening symptoms. In the event that this physician does not participate in your insurance network, please consult with your insurance company to find a nearby participating provider. Patient Education Materials: Acute Back Pain, Adult A MESSAGE TO ALL PATIENTS REGARDING OPIOIDS PRESCRIPTION OPIOIDS: WHAT YOU NEED TO KNOW Prescription opioids can be used to help relieve pcfgnpna-ll-rspvqh pain and are often prescribed following a [...] guidance from the Food and Drug Administration (www.fda.gov/Drugs/Resources (more content not included)...[facility]CT LUMBAR SPINE WO IV CONTRASTon [id number] LUMBAR SPINE WO IV CONTRASTInterpreted By: Bernadette Tapia, STUDY: CT LUMBAR SPINE WO IV CONTRAST 03/09/2024 8:27 pm INDICATION: Signs/Symptoms:Fall with injury COMPARISON: MRI of the lumbar spine dated 01/10/2024; CT of the lumbar spine dated 12/13/2023; ACCESSION NUMBER(S): [id number] ORDERING CLINICIAN: JAROCHO DELATORRE TECHNIQUE: Axial CT images of the lumbar spine are obtained. Axial, coronal and sagittal reconstructions are provided for review. FINDINGS: In the interim since prior MRI of the lumbar spine in the December of 2023, there are new postsurgical changes of left L4 hemilaminotomy and left L4-L5 medial facetectomy. A new small focus of air is present within the laminotomies surgical bed (series 3, image 99), possibly epidural in location. There is an adjacent focus of soft tissue attenuation within the posterior aspect of the laminotomy surgical bed, measuring a proximally 1.8 x 1.8 cm in transaxial dimensions. A tract of soft tissue attenuation extends from the laminotomies to a 6.4 x 3.7 cm circumscribed collection within the cutaneous tissues overlying the posterior aspect of the lumbar spine, to the left of midline (series 3, image 98 and 87). Lumbar vertebral alignment is maintained, without evidence of new spondylolisthesis. Lumbar vertebral body heights are preserved without evidence of new compression fractures. Posterior elements of the lumbar spine do not demonstrate any new trauma or other acute findings, aside from the surgical changes described above. Azef-df-uervbslq intervertebral disc height loss is present at the level of L4-L5 with the associated ex vacuo disc phenomenon. No new spinal canal stenosis is identified in the lumbar spine. Mcjz-mw-tcxkwkla spinal canal narrowing due to disc osteophyte complex at the level of L4-L5 is similar to prior exam, and better evaluated on previous MRI of the lumbar spine. No new neural foraminal stenosis is present. Bony neural foraminal narrowing at L4-L5 bilaterally is similar to previous CT imaging. Visualized intra-abdominal structures do not demonstrate any acute abnormality. IMPRESSION: 1. No evidence of acute bony trauma within the lumbar spine. 2. In the interim since prior MRI of the lumbar spine in December of 2023, there are new postsurgical changes consistent with left-sided laminotomy of L4 and medial facetectomy of L4-L5 on the left. Several locules of air are present within the laminectomy surgical bed, an abnormal finding one month out of surgery, and possibly located within the epidural space of the spinal canal. A focus of soft tissue attenuation is present slightly more posteriorly within the laminectomy surgical bed to the locules of air, with a tract extending to a 6.4 x 3.6 cm collection within the cutaneous fat overlying the posterior elements of the lumbar spine, which may possibly representing postsurgical hematoma/seroma, of unclear sterility. The above tract may represent granulation/scar tissue, although connection between laminotomy surgical bed in the more superficial fluid collection is not excluded or confirmed on the provided images. Correlate with WBC levels and CRP/ESR. If there are clinical findings suspicious for infection, MRI of the lumbar spine may be needed for additional evaluation. 3. Redemonstration of ahlw-si-ihcyezdk spinal canal narrowing at the level of L4-L5 due to disc osteophyte complex, similar in appearance to prior CT in better evaluated on previous MRI of the lumbar spine. MACRO: None Signed by: Bernadette Tapia 03/09/2024 9:18 PM Dictation workstation: [id number] HealthcareCT Lumbar spine WO contraston . No evidence of acute bony trauma within the lumbar spine. 2. In the interim since prior MRI of the lumbar spine in December of 2023, there are new postsurgical changes consistent with left-sided laminotomy of L4 and medial facetectomy of L4-L5 on the left. Several locules of air are present within the laminectomy surgical bed, an abnormal finding one month out of surgery, and possibly located within the epidural space of the spinal canal. A focus of soft tissue attenuation is present slightly more posteriorly within the laminectomy surgical bed to the locules of air, with a tract extending to a 6.4 x 3.6 cm collection within the cutaneous fat overlying the posterior elements of the lumbar spine, which may possibly representing postsurgical hematoma/seroma, of unclear sterility. The above tract may represent granulation/scar tissue, although connection between laminotomy surgical bed in the more superficial fluid collection is not excluded or confirmed on the provided images. Correlate with WBC levels and CRP/ESR. If there are clinical findings suspicious for infection, MRI of the lumbar spine may be needed for additional evaluation. 3. Redemonstration of fely-ks-tgmgihsv spinal canal narrowing at the level of L4-L5 due to disc osteophyte complex, similar in appearance to prior CT in better evaluated on previous MRI of the lumbar spine. MACRO: None Signed by: Bernadette Tapia 03/09/2024 9:18 PM Dictation workstation: [id number] MMODALInterpreted By: Bernadette Tapia, STUDY: CT LUMBAR SPINE WO IV CONTRAST 03/09/2024 8:27 pm INDICATION: Signs/Symptoms:Fall with injury COMPARISON: MRI of the lumbar spine dated 01/10/2024; CT of the lumbar spine dated 12/13/2023; ACCESSION NUMBER(S): [id number] ORDERING CLINICIAN: JAROCHO DELATORRE TECHNIQUE: Axial CT images of the lumbar spine are obtained. Axial, coronal and sagittal reconstructions are provided for review. FINDINGS: In the interim since prior MRI of the lumbar spine in the December of 2023, there are new postsurgical changes of left L4 hemilaminotomy and left L4-L5 medial facetectomy. A new small focus of air is present within the laminotomies surgical bed (series 3, image 99), possibly epidural in location. There is an adjacent focus of soft tissue attenuation within the posterior aspect of the laminotomy surgical bed, measuring a proximally 1.8 x 1.8 cm in transaxial dimensions. A tract of soft tissue attenuation extends from the laminotomies to a 6.4 x 3.7 cm circumscribed collection within the cutaneous tissues overlying the posterior aspect of the lumbar spine, to the left of midline (series 3, image 98 and 87). Lumbar vertebral alignment is maintained, without evidence of new spondylolisthesis. Lumbar vertebral body heights are preserved without evidence of new compression fractures. Posterior elements of the lumbar spine do not demonstrate any new trauma or other acute findings, aside from the surgical changes described above. Ochg-nn-icobpfix intervertebral disc height loss is present at the level of L4-L5 with the associated ex vacuo disc phenomenon. No new spinal canal stenosis is identified in the lumbar spine. Gpyv-vx-qaxyulmd spinal canal narrowing due to disc osteophyte complex at the level of L4-L5 is similar to prior exam, and better evaluated on previous MRI of the lumbar spine. No new neural foraminal stenosis is present. Bony neural foraminal narrowing at L4-L5 bilaterally is similar to previous CT imaging. Visualized intra-abdominal structures do not demonstrate any acute abnormality. MMODALBernadette Tapia MD - 03/09/2024 Interpreted By: Bernadette Tapia, STUDY: CT LUMBAR SPINE WO IV CONTRAST 03/09/2024 8:27 pm INDICATION: Signs/Symptoms:Fall with injury COMPARISON: MRI of the lumbar spine dated 01/10/2024; CT of the lumbar spine dated 12/13/2023; ACCESSION NUMBER(S): [id number] ORDERING CLINICIAN: JAROCHO DELATORRE TECHNIQUE: Axial CT images of the lumbar spine are obtained. Axial, coronal and sagittal reconstructions are provided for review. FINDINGS: In the interim since prior MRI of the lumbar spine in the December of 2023, there are new postsurgical changes of left L4 hemilaminotomy and left L4-L5 medial facetectomy. A new small focus of air is present within the laminotomies surgical bed (series 3, image 99), possibly epidural in location. There is an adjacent focus of soft tissue attenuation within the posterior aspect of the laminotomy surgical bed, measuring a proximally 1.8 x 1.8 cm in transaxial dimensions. A tract of soft tissue attenuation extends from the laminotomies to a 6.4 x 3.7 cm circumscribed collection within the cutaneous tissues overlying the posterior aspect of the lumbar spine, to the left of midline (series 3, image 98 and 87). Lumbar vertebral alignment is maintained, without evidence of new spondylolisthesis. Lumbar vertebral body heights are preserved without evidence of new compression fractures. Posterior elements of the lumbar spine do not demonstrate any new trauma or other acute findings, aside from the surgical changes described above. Qacz-hj-ilasiryb intervertebral disc height loss is present at the level of L4-L5 with the associated ex vacuo disc phenomenon. No new spinal canal stenosis is identified in the lumbar spine. Ttqe-mx-wlknimoc spinal canal narrowing due to disc osteophyte complex at the level of L4-L5 is similar to prior exam, and better evaluated on previous MRI of the lumbar spine. No new neural foraminal stenosis is present. Bony neural foraminal narrowing at L4-L5 bilaterally is similar to previous CT imaging. Visualized intra-abdominal structures do not demonstrate any acute abnormality. IMPRESSION: 1. No evidence of acute bony trauma within the lumbar spine. 2. In the interim since prior MRI of the lumbar spine in October of 2024, there are new postsurgical changes consistent with left-sided laminotomy of L4 and medial facetectomy of L4-L5 on the left. Several locules of air are present within the laminectomy surgical bed, an abnormal finding one month out of surgery, and possibly located within the epidural space of the spinal canal. A focus of soft tissue attenuation is present slightly more posteriorly within the laminectomy surgical bed to the locules of air, with a tract extending to a 6.4 x 3.6 cm collection within the cutaneous fat overlying the posterior elements of the lumbar spine, which may possibly representing postsurgical hematoma/seroma, of unclear sterility. The above tract may represent granulation/scar tissue, although connection between laminotomy surgical bed in the more superficial fluid collection is not excluded or confirmed on the provided images. Correlate with WBC levels and CRP/ESR. If there are clinical findings suspicious for infection, MRI of the lumbar spine may be needed for additional evaluation. 3. Redemonstration of cqkc-st-jzkcruyq spinal canal narrowing at the level of L4-L5 due to disc osteophyte complex, similar in appearance to prior CT in better evaluated on previous MRI of the lumbar spine. MACRO: None Signed by: Bernadette Tapia 03/09/2024 9:18 PM Dictation workstation: [id number] [facility] Work Phone: ct Lumbar spine WO contrastOrdered By: Bernadette Tapia on [id number] Township District Memorial Hospital Work Phone: CT PELVIS WO IV CONTRASTon [id number] PELVIS WO IV CONTRASTInterpreted By: Bernadette Tapia, STUDY: CT PELVIS WO IV CONTRAST; 03/09/2024 8:27 pm INDICATION: Signs/Symptoms:Fall with injury. COMPARISON: CT abdomen and pelvis dated 12/15/2023; MRI of the lumbar spine dated 01/10/2024; same day CT of the lumbar spine. ACCESSION NUMBER(S): [id number] ORDERING CLINICIAN: JAROCHO DELATORRE TECHNIQUE: CT of the pelvis was performed. Coronal and sagittal reconstructions at 3 mm slice thickness were performed. No intravenous or oral contrast agents were administered. FINDINGS: A subtle cortical discontinuity is present in the anterior aspect of the S2 vertebral body, with some indistinct appearance of the posterior aspect of the S2 vertebral body, suspicious for a nondisplaced sacral fracture (series 6, image 68). No additional fracture is identified in the sacrum or pelvis. Degenerative changes with ex vacuo phenomenon are present at the sacroiliac joints bilaterally. Visualized proximal femurs are unremarkable in appearance. Please refer to separately dictated same day CT of the lumbar spine for further characterization of spinal findings. Cutaneous tissues of the abdomen and pelvis do not demonstrate any acute abnormality. No acute abnormality is identified within the visualized intra-abdominal/pelvic structures. IMPRESSION: Subtle cortical discontinuity is present within the anterior and posterior cortical table of the S2 vertebral body, suspicious for a nondisplaced fracture. MACRO: None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 [address]Snamcxcs gravity (U) [Rel density]1.018Invalid Interpretation Code1.005-1.030[facility] HospitalComment on above:Performed By: #### [id number] #### [facility] [address] [place] [address]Dfitajbchknw (U) [Mass/Vol]NegativeNormalNegativeOhiohealth Berger HospitalComment on above:Performed By: #### [id number] #### [facility] [address] [place] [address]JWF Auto (Urine sed) [#/Area]12-18Igscmobi9-3UyhuooClermont County HospitalComment on above:Performed By: #### [id number] #### [facility] [address] [place] [address]Rsaj of Urine collection methodClean CatchNormalFisher R Adams Cowley Shock Trauma CenterComment on above:Performed By: #### [id number] #### [facility] [address] [place], [place] [address]DGOHOQKOSAFgnuaes By: SYSTEM SYSTEM on 56-55-4256Dtrqufnwc Ql (U)NegativeNormalNegativemg/dLFT UA Auto SSClarity (U)Clear (02/20/24 4:50 PM)NormalClearFTMC UA Auto SSColor (U)Light-Yellow 1 (02/20/24 4:50 PM)NormalYellowFT UA Auto SSComment on above:Interpretive Data: Microscopic readings are only performed on those samples that meet specific criteria set forth by [facility].Epithelial cells.squamous Auto (Urine sed) [#/Area]5-8 graded/HPFInvalid Interpretation CodeFT UA Auto SSGlucose Ql (U)NegativeNormalNegativemg/dLFT UA Auto SS Hemoglobin Auto test strip (U) [Mass/Vol]1+ mg/dLInvalid Interpretation Code Negativemg/dLFT UA Auto SSKetones Auto test strip Ql (U)NegativeNormal Negativemg/dLFT UA Auto SSLeukocyte esterase Auto test strip Ql (U)75 Robert/uL Robert/uLInvalid Interpretation CodeNegativeLeu/uLHARPER COUNTY COMM[facility] UA Auto SSMucus Auto Ql (U) Trace graded/LPFNormalNegativegraded/LPFFTMC UA Auto SSNitrite Auto test strip Ql (U)NegativeNormalNegativemg/dLFT UA Auto SSpH (U)7.0 *NA* (02/20/24 4:50 PM)Invalid Interpretation Code5.0 - 9.0FT UA Auto SSProtein Ql (U)NegativeNormalNegativemg/dLFT UA Auto SSRBC Ql (U)4-20 graded/HPFInvalid Interpretation Code0-3graded/HPFFT UA Auto SSSpecific gravity (U) [Rel density]1.018 *NA* (02/20/24 4:50 PM)Invalid Interpretation Code1.005 - 1.030FT UA Auto SS Urobilinogen (U) [Mass/Vol]NegativeNormalNegativemg/dLFT UA Auto SSWBC Auto (Urine sed) [#/Area]26-30 graded/HPFInvalid Interpretation Code0-5graded/HPFHARPER COUNTY COMMUNITY [facility] UA Auto SSURINALYSISOrdered By: Joan Garnett on [id number] Spec DescClean Catch (02/20/24 4:50 PM)NormalHARPER COUNTY COMMUNITY HOSPITAL – [facility] UA Auto SSBMPon 99-45-6549Omdud gap [Moles/Vol]10 mmol/LNormal6-16[facility] HospitalComment on above:Performed By: #### [id number] #### [facility] [address] [place], [place] [address]Hqxqfhl [Mass/Vol]8.8 mg/dLLow8.9-11.1FClermont County HospitalComment on above:Performed By: #### [id number] #### [facility] [address] [place], [place] [address]Dkcgjzsg [Moles/Vol]108 mmol/EIytlot267-182KqydhaOhiohealth Berger HospitalComment on above:Performed By: #### [id number] #### [facility] [address] [place], [place] [address]CN[address] [Moles/Vol]28 mmol/CBpoenl93-89UkykjiOhiohealth Berger Hospital Comment on above:Performed By: #### [id number] #### [facility] [address] [place], [place] [address]Xaqrfunmdx [Mass/Vol]0.7 mg/dLNormal0.5-1.3FClermont County HospitalComment on above:Performed By: #### [id number] #### [facility] [address] [place], [place] [address]Ljqzfen [Mass/Vol]96 mg/uCHftcna62-853LxjkydOhiohealth Berger HospitalComment on above:Performed By: #### [id number] #### [facility] [address] [place], [place] [address]Slkoznaev [Moles/Vol]3.8 mmol/LNormal3.5-5.3FClermont County HospitalComment on above:Performed By: #### [id number] #### [facility] [address] [place] [address]Sbnebu [Moles/Vol]142 mmol/MEacyse433-576SvzjwiOhiohealth Berger HospitalComment on above:Performed By: #### [id number] #### [facility] [address] [place] [address]Egms nitrogen [Mass/Vol]17 mg/dLNormal5-21[facility] Berger HospitalComment on above:Performed By: #### [id number] #### [facility] [address] [place], [place] [address]Etgs nitrogen/Creatinine [Mass ratio]24 No QumwlOswu82-56GugwpwOhiohealth Berger HospitalComment on above:Performed By: #### [id number] #### [facility] [address] [place] [address]WAQ w/ Auto Diffon 13-17-7577Abqsgdcrj/100 WBC (Bld)0.4 %Normal 0.0-2.0[facility] Berger HospitalComment on above:Performed By: #### [id number] #### [facility] [address] [place] [address]Oqjeowlet/Leukocytes Auto (Bld) [Pure # fraction]0.0 E9/LNormal 0.0-0.2FClermont County HospitalComment on above:Performed By: #### [id number] #### [facility] [address] [place] [address]Bxxysiayemj (Bld) [#/Vol]0.1 E9/LNormal0.0-0.5FClermont County HospitalComment on above:Performed By: #### [id number] #### [facility] [address] [place] [address] 31861Mfpimdrvyxl/100 WBC (Bld)1.7 %Normal0.0-8.0[facility] Berger HospitalComment on above:Performed By: #### [id number] #### [facility] [address] [place] [address] 75448Likjccvafpw distribution width (RBC) [Ratio]14.8 %High10.9-14.2 [facility] HospitalComment on above:Performed By: #### [id number] #### [facility] [address] [place] [address] 27502Nzpwtkhpzr (Bld) [Volume fraction]40.2 %Stlhcr76.0-46.0[facility] HospitalComment on above:Performed By: #### [id number] #### [facility] [address] [place] [address] 06995Ganrctksyv (Bld) [Mass/Vol]13.6 g/aFAynfuf37.0-16.0[facility] HospitalComment on above:Performed By: #### [id number] #### [facility] [address] [place] [address] 09161Dzialxggoky (Bld) [#/Vol]2.3 E9/LNormal1.0-4.0[facility] HospitalComment on above:Performed By: #### [id number] #### [facility] [address] [place] [address] 08444Jjvfxtrbmpm/100 WBC (Bld)29.1 %Unyekd09.0-50.0[facility] HospitalComment on above:Performed By: #### [id number] #### [facility] [address] [place] [address] 92804CMC (RBC) [Entitic mass]30.6 jmDebkct23.0-34.0[facility] HospitalComment on above:Performed By: #### [id number] #### [facility] [address] [place] [address] 32476UVMR (RBC) [Mass/Vol]33.9 g/pCVtdhvy32.4-36.0[facility] HospitalComment on above:Performed By: #### [id number] #### [facility] [address] [place] [address] 86060QDV (RBC) [Entitic vol]90.1 uQJruiwi62.0-100.0[facility] HospitalComment on above:Performed By: #### [id number] #### [facility] [address] [place] [address] 81546Lmondeiun (Bld) [#/Vol]0.5 E9/LNormal0.2-1.0[facility] HospitalComment on above:Performed By: #### [id number] #### [facility] [address] [place] [address] 50669Rsxzggffdou (Bld) [#/Vol]4.9 E9/LNormal2.0-7.5FClermont County HospitalComment on above:Performed By: #### [id number] #### [facility] [address] [place] [address] 72968Kmffyapfihn/100 WBC (Bld)62.2 %Ybfhxj18.0-75.0[facility] HospitalComment on above:Performed By: #### [id number] #### [facility] [address] [place] [address] 63849Cnvjuhye737.0 E9/OYhhufx471.0-500.0[facility] Comment on above:Performed By: #### [id number] #### [facility] [address] [place] [address] 37483Wjihyfmr mean volume (Bld) [Entitic vol]7.8 fLNormal6.4-10.8 [facility] HospitalComment on above:Performed By: #### [id number] #### [facility] [address] [place] [address] 51011DPK (Bld) [#/Vol]4.5 E12/LNormal4.3-5.9[facility] HospitalComment on above:Performed By: #### [id number] #### [facility] [address] [place] [address] 06241BCK corrected for nucl RBC Auto (Bld) [#/Vol]7.9 E9/LNormal 4.0-11.0[facility] HospitalComment on above:Performed By: #### [id number] #### [facility] [address] [place], [place] [address]CHTTZPEKJExobcvn By: SYSTEM SYSTEM on 04-98-4142Ajmawkir HS3.70 pg/mLLow10.10 - 27.10 pg/mLRemisol ChemComment on above:Interpretive Data: The 95% CI (Confidence Interval) PPV (Positive Predictive Value) for myocardial i nfarction in females is 38 pg/mL, in males 51 pg/mL. The results should be used in conjunction withclinical conditions of myocardial infarction. (Access High Sensitivity Troponin I Instructions For Use, SynapticMash, October 2017)Anion gap [Moles/Vol]10 mmol/LNormal6 - 16 mEq/LRemisol ChemCalcium [Mass/Vol]8.8 mg/dLLow8.9 - 11.1 mg/dLRemisol ChemChloride [Moles/Vol]108 mmol/L Mlsuqu944 - 111 mmol/LRemisol ChemCO2 [Moles/Vol]28 mmol/PXyvgdt55 - 31 mmol/L Remisol ChemCreatinine [Mass/Vol]0.7 mg/dLNormal0.5 - 1.3 mg/dLRemisol ChemeGFR 107 mL/min/1.73 w7Fdauom>=59mL/min/1.73 g0Wcjaomw ChemGlucose [Mass/Vol]96 mg/dL Qupyui66 - 199 mg/dLRemisol ChemPotassium [Moles/Vol]3.8 mmol/LNormal3.5 - 5.3 mmol/LRemisol ChemSodium [Moles/Vol]142 mmol/AUstznn495 - 145 mmol/LRemisol Chem Troponin HS3.10 pg/mLLow10.10 - 27.10 pg/mLRemisol ChemComment on above: Interpretive Data: The 95% CI (Confidence Interval) PPV (Positive Predictive Value) for myocardial infarction in females is 38 pg/mL, in males 51 pg/mL. The results should be used in conjunction withclinical conditions of myocardial infarction. (Access High Sensitivity Troponin I Instructions For Use, [employer]aptic[employer], October 2017)Urea nitrogen [Mass/Vol]17 mg/dLNormal5 - 21 mg/dLRemisol ChemUrea nitrogen/Creatinine [Mass ratio]24 mg/lhTbbk88 - 20Remisol ChemCOAGULATION Ordered By: Radha Vivar on 22-11-7226tWKS Coag (PPP) [Time]29.0 bOakmvq00.1 - 36.5 second(s)[facility] Auto CoagComment on above:Interpretive Data: Parameter 15 days - 4 weeks 1 - [...] the same coagulation reagent and instrumentation as [facility]. Currently there are no coagulation studies available worldwide for children to 14 days, andno normal ranges. Heparin therapeutic range (represented by Anti-Factor Xa activity of 0.2 - 0.4 U/mL) corresponds to PTT of 56.6 - 109.0 sec.INR Coag (PPP) [Relative time]1.01 {INR}Invalid Interpretation CodeHARPER COUNTY COMM[facility] [place] Auto CoagComment on above:Interpretive Data: INR results are specifically intended to assess patients stabilized on long-term Anticoagulation therapy suggested INR s Less Intensive Anticoagulation 2.0 3.0 Conventional Range 3.0 4.5PT Coag (PPP) [Time]11.3 sNormal9.4 - 12.5 second(s) [facility] Auto CoagComment on above:Interpretive Data: 15 days - 4 weeks 1 - [...] the same coagulation reagent and instrumentation as [facility]. Currently there are no coagulation studies available worldwide for children to 14 days, andno normal ranges.ED Clinical Summaryon [id number] Clinical SummaryED Clinical Summary [place] [id number] ED Clinical Summary Person Information Name: JERAD TRACY [place] Age: 48 Years : 1975 Sex: Female Language: Malagasy PCP: Mayra Rincon Marital Status: Phone: Visit Id: Visit [...] 02/16/2024 11:52:04 02/16/2024 11:52:04 ADDR[place]: [place] [id number] PHYS DOC NOTES: MEDICAL INFORMATION: Prescriptions Given: New Medications [facility]/pharmacy #[id number], [address] [place] [id number], [phone] cefdinir (cefdinir 300 mg Cap) 1 Capsules [...] Adult; Costochondritis Follow up: With: Address: When: Mayra Post, [address], [address] [address] Business (1) In 3 days 02/19/2024 DIAGNOSIS: Costochondritis; Cough; Pneumonia; Shortness of breathMichelet Sal Medical CenterED Note-Physicianon [id number] Note-PhysicianED Note-Physician Basic Information Time Seen: Gumaro MILES, Manuel Marino 02/16/2024 09:19 Chief Complaint Pt [...] have lower back surgery at [facility] but had a CTA of the chest that was negative for PE. Review of Systems No other aggravating or relieving factors no other associated symptoms no other prior treatments orcomplaints. Family: Reviewed and noncontributory Social: lives at [...] <1% risk of major adverse cardiac event in30 days Medical Decision Making Patient is a 48-year-old female presents today for evaluation of her chest pain and shortness of breath. She was just diagnosed with pneumonia based off a CTA of the chest with PE rule out here in the ED 2 days ago and was given steroids and antibiotics and inhaler. She is having continued symptomsdespite these medications. Denies any other systemic signs [...] well as a DuoNeb breathing treatment for herpain and shortness of breath with improvement. Her pain is likely due to costochondritis with chestwall tenderness due to her cough from the pneumonia. Heart score of 2. Discussed with her that we will double cover her for her pneumonia given she is already on azithromycin. She just had a CTA of the chest 2 days ago which was negative for PE and I do not feel is warranted for repeat scan at thistime. She will be started on cefdinir given [...] q12hr, X 7 (more content not included)... [facility] HospitalComment on above:Result Comment: Electronically Signed By: Gumaro MILES, Manuel Marino\.br\Date and Time Signed: 02/15/2415:47 EST\.br\Electronically Co-Signed By: Nikhil Tubbs DO.br\Date and Time Co- Signed: 02/15/2418:31 ESTED Patient Summaryon [id number] Patient SummaryED Patient Summary [address] [address] Patient Discharge Instructions Person Information Name: JERAD TRACY Age: 48 Years Arrival Date: 02/16/2024 09:17:08 Discharge Diagnosis: Costochondritis; Cough; Pneumonia; Shortness of breath Primary Care Physician: Mayra Rincon Provider Information Primary Provider: Nikhil Tubbs DO Advanced Dietetic Intern:Manuel Naik PA-C The exam and treatment you received in the Emergency Department were for an urgent problem and are not intended as complete care. It is important that you follow up with a doctor, nurse practitioner,or physician???s construction assistant for ongoing care. If your symptoms become worse or you do not improve asexpected and you are unable to reach your usual health care provider, you should return to the Emergency Department. We are available 24 hours a day. JERAD TRACY has been given the following list of patient education materials, prescriptions andfollow-up instructions: Follow-up Instructions: With: Address: When: Mayra Rosas [address] [place] [address] A, [address] [address] Business (1) In 3 days 02/19/2024 In the event that this physician does not participate in your insurance network, please consult with your insurance company to find a nearby participating provider. Patient Education Materials: Community-Acquired Pneumonia, Adult; Costochondritis A MESSAGE TO ALL PATIENTS REGARDING OPIOIDS PRESCRIPTION OPIOIDS: WHAT YOU NEED TO KNOW Prescription opioids can be used to help relieve vuqsguoz-tj-zrxtbl pain and are often prescribed following a [...] guidance from the Food and Drug Administration (www.fda.gov/Drugs/ResourcesForYou). ??? Visit www.cdc.gov/drugoverdose to learn about the risks of opioids abuse and overdose. ??? (more content not included)...[facility] HospitalHEMATOLOGY Ordered By: SYSTEM SYSTEM on 80-28-9491Gmltthspg/100 WBC (Bld)0.4 %Normal0.0 - 2.0 %Remisol HemeBasophils/Leukocytes Auto (Bld) [Pure # fraction]0.0 E9/LNormal 0.0 - 0.2 E9/LRemisol HemeEosinophils (Bld) [#/Vol]0.1 E9/LNormal0.0 - 0.5 E9/L Remisol HemeEosinophils/100 WBC (Bld)1.7 %Normal0.0 - 8.0 %Remisol Heme Erythrocyte distribution width (RBC) [Ratio]14.8 %High10.9 - 14.2 %Remisol Heme Hematocrit (Bld) [Volume fraction]40.2 %Anftxl85.0 - 46.0 %Remisol Heme Hemoglobin (Bld) [Mass/Vol]13.6 g/uEWabudj17.0 - 16.0 gm/dLRemisol Heme Lymphocytes (Bld) [#/Vol]2.3 E9/LNormal1.0 - 4.0 E9/LRemisol HemeLymphocytes/100 WBC (Bld)29.1 %Pvginn52.0 - 50.0 %Remisol HemeMCH (RBC) [Entitic mass]30.6 pg Tgdvjj38.0 - 34.0 pgRemisol HemeMCHC (RBC) [Mass/Vol]33.9 g/eBAoenoh67.4 - 36.0 gm/dLRemisol HemeMCV (RBC) [Entitic vol]90.1 mBBptbne88.0 - 100.0 fLRemisol Heme Monocytes (Bld) [#/Vol]0.5 E9/LNormal0.2 - 1.0 E9/LRemisol HemeMonocytes/100 WBC (Bld)6.6 %Normal4.0 - 14.0 %Remisol HemeNeutrophils (Bld) [#/Vol]4.9 E9/LNormal 2.0 - 7.5 E9/LRemisol HemeNeutrophils/100 WBC (Bld)62.2 %Fsrpyx68.0 - 75.0 % Remisol KxsvAelcgrba618.0 E9/KGuisas124.0 - 500.0 E9/LRemisol HemePlatelet mean volume (Bld) [Entitic vol]7.8 fLNormal6.4 - 10.8 fLRemisol HemeRBC (Bld) [#/Vol] 4.5 E12/LNormal4.3 - 5.9 E12/LRemisol HemeWBC corrected for nucl RBC Auto (Bld) [#/Vol]7.9 E9/LNormal4.0 - 11.0 E9/LRemisol HemePT & PTTon 46-35-9575zEPX Coag (PPP) [Time]29.0 second(s)Mqypqu61.1-36.5[facility] Shock Trauma CenterComment on above:Result Comment: Parameter 15 days - 4 weeks 1 - [...] the same coagulation reagent and instrumentation as [facility]. Currently there are no coagulation studies available worldwide for children to 14 days, andno normal ranges. Heparin therapeutic range (represented by Anti-Factor Xa activity of 0.2 - 0.4 U/mL) corresponds to PTT of 56.6 - 109.0 sec.Performed By: #### [id number] #### [facility] [address] [place] [address]75[address]NMJ Coag (PPP) [Relative time]1.01 {INR}Invalid Interpretation CodeTommysusan R Adams Cowley Shock Trauma CenterComment on above:Result Comment: INR results are specifically intended to assess patients stabilized on long-term Anticoagulation therapy suggested INR???s ???Less Intensive Anticoagulation??? 2.0 ??? 3.0 Conventional Range 3.0 ??? 4.5Performed By: #### [id number] #### [facility] [address] [place], [place] [address]BB Coag (PPP) [Time]11.3 second(s)Normal9.4-12.5FClermont County HospitalComment on above:Result Comment: 15 days - 4 weeks 1 - [...] the same coagulation reagent and instrumentation as [facility]. Currently there are no coagulation studies available worldwide for children to 14 days, andno normal ranges.Performed By: #### [id number] #### [facility] [address] [place], [place] [address]Yzxfkjit 0 Hr.on 02-09-8607Covzvuqp HS3.10 pg/mLLow10.10-27.10 [facility] HospitalComment on above:Result Comment: The 95% CI (Confidence Interval) PPV (Positive Predictive Value) for myocardial infarction in females is 38 pg/mL, in males 51 pg/mL. The results should be used in conjunction with clinical conditions of myocardial infarction. (Access High Sensitivity Troponin I Instructions For Use, Katlyn Allouez, October 2017)Performed By: #### [id number] #### [facility] [address] [place], [place] [address]Tiphaxug 1 Hr.on 91-09-1274Caxzbpoe HS3.70 pg/mLLow10.10-27.10 [facility] HospitalComment on above:Result Comment: The 95% CI (Confidence Interval) PPV (Positive Predictive Value) for myocardial infarction in females is 38 pg/mL, in males 51 pg/mL. The results should be used in conjunction with clinical conditions of myocardial infarction. (Access High Sensitivity Troponin I Instructions For Use, Katlyn Allouez, October 2017)Performed By: #### [id number] #### [facility] [address] [place], [place] [address]XB Chest Single Viewon [id number] Chest Single ViewExam Date/Time: 02/16/2024 09:54 EST Reason for Exam: Chest pain Report IMPRESSION: No acute findings by portable radiography. EXAMINATION/TECHNIQUE: XR Chest Single View HISTORY: Chest pain. COMPARISON: 02/14/2024. RESULT: No distinct focal consolidation. No pleural effusion. No pneumothorax. Normal cardiomediastinal silhouette. No acute osseous findings. Ordering Provider: Manuel Naik FINAL REPORT Dictated: 02/16/2024 11:38 am Gene Gamboa MD Signed (Electronic Signature): 02/16/2024 11:38 am Signed by: Gene Gamboa MD Transcribed by: KIERRA Technologist: SHARON Technical Comments Radiation Dose: Ka,r in mGy = na DAP = naNormalOhiohealth Berger HospitaleGFRon 03-74-4537vOCW101 mL/min/1.73 m2 Normal>=59[facility] HospitalComment on above:Performed By: #### [id number] #### [facility] [address] [place], [place] [address]HWRez 89-91-1750Lrxhm gap [Moles/Vol]10 mmol/LNormal6-16[facility] HospitalComment on above:Performed By: #### [id number] #### [facility] [address] [place], [place] [address]Muovlep [Mass/Vol]8.4 mg/dLLow8.9-11.1[facility] Shock Trauma CenterComment on above:Performed By: #### [id number] #### [facility] [address] [place], [place] [address]Drcwtauo [Moles/Vol]105 mmol/QGpelfr596-428YojzrsOhiohealth Berger HospitalComment on above:Performed By: #### [id number] #### [facility] [address] [place], [place] [address]QN9 [Moles/Vol]29 mmol/ZIaxayc75-32JeisphOhiohealth Berger Hospital Comment on above:Performed By: #### [id number] #### [facility] [address] [place], [place] [address]Kaucihodrb [Mass/Vol]0.7 mg/dLNormal0.5-1.3FClermont County HospitalComment on above:Performed By: #### [id number] #### [facility] [address] [place], [place] [address]Hhhrway [Mass/Vol]82 mg/aAMqsumw92-081ZbsapnOhiohealth Berger HospitalComment on above:Performed By: #### [id number] #### [facility] [address] [place], [place] [address]Ebhapclry [Moles/Vol]4.0 mmol/LNormal3.5-5.3FClermont County HospitalComment on above:Performed By: #### [id number] #### [facility] [address] [place], [place] [address]Golwhv [Moles/Vol]140 mmol/BIhyscx218-016XzmzbzOhiohealth Berger HospitalComment on above:Performed By: #### [id number] #### [facility] [address] [place], [place] [address]Xcuh nitrogen [Mass/Vol]15 mg/dLNormal5-21[facility] HospitalComment on above:Performed By: #### [id number] #### [facility] [address] [place], [place] [address]Tdcm nitrogen/Creatinine [Mass ratio]21 No LpjkuXavj23-74WmwmouOhiohealth Berger HospitalComment on above:Performed By: #### [id number] #### [facility] [address] [place] [address]DHQ w/ Auto Diffon 84-55-3233Grdopycsh/100 WBC (Bld)0.5 %Normal 0.0-2.0[facility] HospitalComment on above:Performed By: #### [id number] #### [facility] [address] [place] [address]Plwunumdj/Leukocytes Auto (Bld) [Pure # fraction]0.1 E9/LNormal 0.0-0.2FClermont County HospitalComment on above:Performed By: #### [id number] #### [facility] [address] [place] [address]Vqqfzlwpbww (Bld) [#/Vol]0.3 E9/LNormal0.0-0.5FClermont County HospitalComment on above:Performed By: #### [id number] #### [facility] [address] [place] [address]Efnrfuirmsl/100 WBC (Bld)3.0 %Normal0.0-8.0[facility] HospitalComment on above:Performed By: #### [id number] #### [facility] [address] [place] [address]Hyypgttoulj distribution width (RBC) [Ratio]14.6 %High10.9-14.2 [facility] HospitalComment on above:Performed By: #### [id number] #### [facility] [address] [place] [address] 75792Cvjdqtrfyo (Bld) [Volume fraction]40.7 %Ngyjcr67.0-46.0[facility] HospitalComment on above:Performed By: #### [id number] #### [facility] [address] [place] [address] 64736Zbtnypvgyy (Bld) [Mass/Vol]13.6 g/zMKveibs93.0-16.0[facility] HospitalComment on above:Performed By: #### [id number] #### [facility] [address] [place] [address] 36[address]Zqalfgohggh (Bld) [#/Vol]1.9 E9/LNormal1.0-4.0[facility] HospitalComment on above:Performed By: #### [id number] #### [facility] [address] [place] [address]80[address]Fxdbejnrlbe/100 WBC (Bld)17.5 %Ytegij66.0-50.0[facility] HospitalComment on above:Performed By: #### [id number] #### [facility] [address] [place] [address] 68276PIW (RBC) [Entitic mass]30.4 nzCbuqrn46.0-34.0[facility] HospitalComment on above:Performed By: #### [id number] #### [facility] [address] [place] [address]ORQZ (RBC) [Mass/Vol]33.4 g/wJHgbsax33.4-36.0[facility] HospitalComment on above:Performed By: #### [id number] #### [facility] [address] [place] [address] 505[address]MZG (RBC) [Entitic vol]90.9 aXMvyisi45.0-100.0[facility] HospitalComment on above:Performed By: #### [id number] #### [facility] [address] [place] [address]Tuyoawbui (Bld) [#/Vol]0.6 E9/LNormal0.2-1.0[facility] HospitalComment on above:Performed By: #### [id number] #### [facility] [address] [place] [address]56[address]Pkqxdsxvzij (Bld) [#/Vol]8.1 E9/LHigh2.0-7.5FClermont County HospitalComment on above:Performed By: #### [id number] #### [facility] [address] [place], [place] [address]Lmvfnsriyza/100 WBC (Bld)73.8 %Wwkicm73.0-75.0[facility] HospitalComment on above:Performed By: #### [id number] #### [facility] [address] [place] [address]87[address]Qtlbfude mean volume (Bld) [Entitic vol]8.4 fLNormal6.4-10.8 [facility] HospitalComment on above:Performed By: #### [id number] #### [facility] [address] [place] [address] 080[address]Zrafxjchm (Bld) [#/Vol]293.0 E9/IEdqmke570.0-500.0[facility] HospitalComment on above:Performed By: #### [id number] #### [facility] [address] [place] [address] 225[address]DIF (Bld) [#/Vol]4.5 E12/LNormal4.3-5.9[facility] HospitalComment on above:Performed By: #### [id number] #### [facility] [address] [place] [address]CMQ corrected for nucl RBC Auto (Bld) [#/Vol]10.9 E9/LNormal 4.0-11.0[facility] HospitalComment on above:Performed By: #### [id number] #### [facility] [address] [place] [address]89[address]VFCXMWOKYPraplah By: SYSTEM SYSTEM on 25-91-3697Sxaamlix HS2.60 pg/mLLow10.10 - 27.10 pg/mLRemisol ChemComment on above:Interpretive Data: The 95% CI (Confidence Interval) PPV (Positive Predictive Value) for myocardial i nfarction in females is 38 pg/mL, in males 51 pg/mL. The results should be used in conjunction withclinical conditions of myocardial infarction. (Access High Sensitivity Troponin I Instructions For Use, Katlyn Edson, October 2017)Albumin [Mass/Vol]3.8 g/dLNormal3.3 - 5.0 gm/dLRemisol Chem Albumin/Globulin [Mass ratio]1.2 {ratio}Normal1.1 - 2.2Remisol ChemALP [Catalytic activity/Vol]84 [iU]/wCkrpah13 - 98 Int._Unit/LRemisol ChemALT No additional P-5'-P [Catalytic activity/Vol]18 [iU]/dNormal6 - 46 Int._Unit/L Remisol ChemAnion gap [Moles/Vol]10 mmol/LNormal6 - 16 mEq/LRemisol ChemAST [Catalytic activity/Vol]17 [iU]/dNormal5 - 43 Int._Unit/LRemisol ChemBilirubin [Mass/Vol]0.4 mg/dLNormal0.0 - 1.1 mg/dLRemisol ChemBilirubin.direct [Mass/Vol] 0.1 mg/dLNormal0.0 - 0.4 mg/dLRemisol ChemBilirubin.indirect [Mass or moles/Vol] 0.3 mg/dLNormal0.1 - 0.9 mg/dLRemisol ChemCalcium [Mass/Vol]8.4 mg/dLLow8.9 - 11.1 mg/dLRemisol ChemChloride [Moles/Vol]105 mmol/KSxxemd622 - 111 mmol/L Remisol ChemCO2 [Moles/Vol]29 mmol/AEnmrgt58 - 31 mmol/LRemisol ChemCreatinine [Mass/Vol]0.7 mg/dLNormal0.5 - 1.3 mg/dLRemisol HhrwySDR831 mL/min/1.73 v7Ogfrgr >=59mL/min/1.73 i1Wwlqzmt ChemGlobulin (S) [Mass/Vol]3.2 g/dLNormal1.4 - 4.0 gm/dLRemisol ChemGlucose [Mass/Vol]82 mg/bFWzozss39 - 199 mg/dLRemisol Chem Lipase [Catalytic activity/Vol]9 U/LLow13 - 58 unit/LRemisol ChemPotassium [Moles/Vol]4.0 mmol/LNormal3.5 - 5.3 mmol/LRemisol ChemProtein [Mass/Vol]7.0 g/dLNormal6.0 - 7.8 gm/dLRemisol ChemSodium [Moles/Vol]140 mmol/ZWzhsih753 - 145 mmol/LRemisol ChemTroponin HS2.60 pg/mLLow10.10 - 27.10 pg/mLRemisol Chem Comment on above:Interpretive Data: The 95% CI (Confidence Interval) PPV (Positive Predictive Value) for myocardial infarction in females is 38 pg/mL, in males 51 pg/mL. The results should be used in conjunction withclinical conditions of myocardial infarction. (Access High Sensitivity Troponin I Instructions For Use, Katlyn Edson, October 2017)Urea nitrogen [Mass/Vol]15 mg/dLNormal5 - 21 mg/dLRemisol ChemUrea nitrogen/Creatinine [Mass ratio]21 mg/mlKbbk80 - 20Remisol ChemCOAGULATION Ordered By: Annie Fairchild on 21-78-8846gASE Coag (PPP) [Time]31.4 lPxrtoe14.1 - 36.5 second(s)[facility] Auto CoagComment on above:Interpretive Data: Parameter 15 days - 4 weeks 1 - [...] the same coagulation reagent and instrumentation as [facility]. Currently there are no coagulation studies available worldwide for children to 14 days, andno normal ranges. Heparin therapeutic range (represented by Anti-Factor Xa activity of 0.2 - 0.4 U/mL) corresponds to PTT of 56.6 - 109.0 sec.INR Coag (PPP) [Relative time]0.95 {INR}Invalid Interpretation CodeHARPER [facility] Auto CoagComment on above:Interpretive Data: INR results are specifically intended to assess patients stabilized on long-term Anticoagulation therapy suggested INR s Less Intensive Anticoagulation 2.0 3.0 Conventional Range 3.0 4.5PT Coag (PPP) [Time]10.6 sNormal9.4 - 12.5 second(s) [facility] Auto CoagComment on above:Interpretive Data: 15 days - 4 weeks 1 - [...] the same coagulation reagent and instrumentation as [facility]. Currently there are no coagulation studies available worldwide for children to 14 days, andno normal ranges.CTA Cheston [id number] ChestExam Date/Time: 02/14/2024 15:19 EST Reason for Exam: [...] Contrast: Isovue 370 Contrast amount in ml's: 66NormalFisher Adena Health System CenterED Clinical Summary on [id number] Clinical SummaryED Clinical Summary [place] [id number] ED Clinical Summary Person Information Name: JERAD TRACY Tasha/[facility] Age: 48 Years : 1975 Sex: Female Language: Malagasy PCP: Mayra Rincon Marital Status: Visit Id: Visit Reason: [...] 02/14/2024 15:53:21 02/14/2024 15:53:21 02/14/2024 15:53:21 ADDRESS: [address] [place] [id number] PHYS DOC NOTES: MEDICAL INFORMATION: Prescriptions Given: New Medications [facility]/pharmacy #[id number], [address], [place] [id number], [phone] albuterol (Albuterol (Eqv-ProAir HFA) 90 mcg/inh inhalation aerosol) 2 Puffs Inhalation every 6 hours for 7 Days. Refills: 0. azithromycin (azithromycin 250 mg Tab) 250 Milligram By Mouth As Directed. Take two tabs by mouth on day one, then one tab daily. Refills: 0. Medications to Continue Taking That Have Changed [facility]/pharmacy #[id number], [address], [place] [id number], [phone] START: predniSONE (predniSONE 20 mg Tab) 3 By Mouth every day. Refills: 0. Other Medications START: predniSONE (predniSONE 10 mg Tab) 1 Tablets By Mouth As Directed. Take 3 tabs by mouth dailyx3 days, then 2 tabs daily x3 days, [...] INFORMATION: Instructions: Follow up: With: Address: When: Mayra [address], [address], [place] [id number] Gravitant (1) In 3 days DIAGNOSIS: Pleurisy; PneumoniaNormalFisher Sal Medical CenterED Note-Physicianon [id number] Note-PhysicianED Note-Physician Basic Information Time Seen: Jorge Mcintosh DO 02/14/2024 12:24 Chief Complaint Pt states that starting after her surgery at on 02/06/24 she started having a cough that has just became worse. Pt stating today she has became short of breath right side only. History of Present Illness 48 female presents emergency department with cough and shortness of breath. Patient states that shehad back surgery on February [facility]. Shortly after this she developed a cough that has become worse. She is now describing some discomfort in the right side of her chest with someassociated wheezing and feeling shortness of breath as [...] here with breathing treatment she does feel dami r she is given Toradol for pain and she is discharged home on Zithromax prednisone and albuterol follow-up in the outpatient setting return to ER symptoms change or worsen. She is comfortable with this plan. Assessment/Plan Pleurisy (R09.1: Pleurisy) Pneumonia (J18.9: Pneumonia, unspecified organism) Orders: albuterol, 2 puff(s), Inhalation, q6hr for 7 day(s), 6.7 gm, Refill(s) 0, [facility]/pharmacy #[id number], 160, cm, 02/14/24 12:22:00 EST, Height/Length Dosing, 114.8, kg, 02/14/24 12:22:00 EST, Weight Dosing albuterol-ipratropium, 3 mL, Soln-Inh, Inhalation, Once, Stop date 02/14/24 13:14:00 EST, STAT, Start date 02/14/24 13:14:00 EST azithromycin, 250 mg, Oral, As Directed, Take two tabs by mouth on day one, then one tab daily, # 6tab(s), Refills(s) 0, Pharmacy: [facility]/pharmacy #[id number], 160, cm, 02/14/24 12:22:00 EST, Height/Length Dosing, 114.8, kg, 02/14/24 12:22:00 EST, Weight Dosing ketorolac, 30 mg = 1 mL, Injection, IV, Once, Stop date 02/14/24 15:36:00 EST, STAT, Start date 02/14/24 15:36:00 EST, 02/14/24 15:36:00 EST predniSONE, 3, Oral, Daily, # 15 tab(s), Refills(s) 0, Pharmacy: [facility]/pharmacy #[id number], 160, cm, 02/14/24 12:22:00 EST, Height/Length [...] Oral, Daily Follow-up With When Contact Information Mayra Rosas [facility] [address] [facility] [place] [address]- Business (1) Additional Instructions: Problem List/Past Medical [...] dependence Hepatitis C Liver (more content not included)...[facility] HospitalComment on above:Result Comment: Electronically Signed By: Jorge Mcintosh DO\.br\Date and Time Signed: 02/14/24 15:43ESTED Patient Education Noteon [id number] Patient Education NoteED Patient Education NoteNoCincinnati Shriners Hospital Patient Summaryon [id number] Patient SummaryED Patient Summary [address] [address] Patient Discharge Instructions Person Information Name: JERAD TRACY Age: 48 Years Arrival Date: 02/14/2024 12:14:28 Discharge Diagnosis: Pleurisy; Pneumonia Primary Care Physician: Mayra Rincon Provider Information Primary Provider: Jorge Mcintosh DO Advanced Dietetic Intern:None The exam and treatment you received in the Emergency Department were for an urgent problem and are not intended as complete care. It is important that you follow up with a doctor, nurse practitioner,or physician???s construction assistant for ongoing care. If your symptoms become worse or you do not improve asexpected and you are unable to reach your usual health care provider, you should return to the Emergency Department. We are available 24 hours a day. JERAD TRACY has been given the following list of patient education materials, prescriptions andfollow-up instructions: Follow-up Instructions: With: Address: When: Mayra Rosas [address] [facility], [address], [place] [id number] Business (1) In 3 days In the event that this physician does not participate in your insurance network, please consult with your insurance company to find a nearby participating provider. Patient Education Materials: A MESSAGE TO ALL PATIENTS REGARDING OPIOIDS PRESCRIPTION OPIOIDS: WHAT YOU NEED TO KNOW Prescription opioids can be used to help relieve azmnpsol-gv-sjnmlj pain and are often prescribed following a [...] guidance from the Food and Drug Administration (www.fda.gov/Drugs/ResourcesForYou). ??? Visit www.cdc.gov/drugoverdose to learn about the risks of opioids abuse and overdose. ??? If you believe you may be struggling with addiction, tell your health childcare aide and askfor guidance or call [facility] (more content not included)... NormalFisher Sal Medical CenterHEMATOLOGYOrdered By: SYSTEM SYSTEM on 76-39-8353Sqvnyzlau/100 WBC (Bld)0.5 %Normal0.0 - 2.0 %Remisol Heme Basophils/Leukocytes Auto (Bld) [Pure # fraction]0.1 E9/LNormal0.0 - 0.2 E9/L Remisol HemeEosinophils (Bld) [#/Vol]0.3 E9/LNormal0.0 - 0.5 E9/LRemisol Heme Eosinophils/100 WBC (Bld)3.0 %Normal0.0 - 8.0 %Remisol HemeErythrocyte distribution width (RBC) [Ratio]14.6 %High10.9 - 14.2 %Remisol HemeHematocrit (Bld) [Volume fraction]40.7 %Nttxgp51.0 - 46.0 %Remisol HemeHemoglobin (Bld) [Mass/Vol]13.6 g/wLZanbum64.0 - 16.0 gm/dLRemisol HemeLymphocytes (Bld) [#/Vol] 1.9 E9/LNormal1.0 - 4.0 E9/LRemisol HemeLymphocytes/100 WBC (Bld)17.5 %Normal 14.0 - 50.0 %Remisol HemeMCH (RBC) [Entitic mass]30.4 tdYpzlaj70.0 - 34.0 pg Remisol HemeMCHC (RBC) [Mass/Vol]33.4 g/eOZzgcke90.4 - 36.0 gm/dLRemisol HemeMCV (RBC) [Entitic vol]90.9 lVAboctu18.0 - 100.0 fLRemisol HemeMonocytes (Bld) [#/Vol]0.6 E9/LNormal0.2 - 1.0 E9/LRemisol HemeMonocytes/100 WBC (Bld)5.2 % Normal4.0 - 14.0 %Remisol HemeNeutrophils (Bld) [#/Vol]8.1 E9/LHigh2.0 - 7.5 E9/LRemisol HemeNeutrophils/100 WBC (Bld)73.8 %Wbxzof64.0 - 75.0 %Remisol Heme Platelet mean volume (Bld) [Entitic vol]8.4 fLNormal6.4 - 10.8 fLRemisol Heme Platelets (Bld) [#/Vol]293.0 E9/LQbehvy980.0 - 500.0 E9/LRemisol HemeRBC (Bld) [#/Vol]4.5 E12/LNormal4.3 - 5.9 E12/LRemisol HemeWBC corrected for nucl RBC Auto (Bld) [#/Vol]10.9 E9/LNormal4.0 - 11.0 E9/LRemisol HemeHep Func Panelon 50-63-1132Upucnsz [Mass/Vol]3.8 g/dLNormal3.3-5.0[facility] Comment on above:Performed By: #### [id number] #### [facility] [address] [place], [place] [address]Xqwnwok/Globulin (S) [Mass conc ratio]1.0Xeyxpe7.1-2.2FClermont County HospitalComment on above:Performed By: #### [id number] #### [facility] [address] [place], [place] [address]KXG [Catalytic activity/Vol]84 Int._Unit/ZBeevew53-52OrmasvOhiohealth Berger HospitalComment on above:Performed By: #### [id number] #### [facility] [address] [place], [place] [address]DYQ No additional P-5'-P [Catalytic activity/Vol]18 Int._Unit/L Normal6-46[facility] HospitalComment on above:Performed By: #### [id number] #### [facility] [address] [place] [address], [place] [address]YPP [Catalytic activity/Vol]17 Int._Unit/LNormal5-43[facility] HospitalComment on above:Performed By: #### [id number] #### [facility] [address] [place], [place] [address]Rwbuccxqj [Mass/Vol]0.4 mg/dLNormal0.0-1.1FClermont County HospitalComment on above:Performed By: #### [id number] #### [facility] [address] [place] [address], [place] [address]Rdzqwiqsz.direct [Mass/Vol]0.1 mg/dLNormal0.0-0.4FClermont County HospitalComment on above:Performed By: #### [id number] #### [facility] [address] [place], [place] [address]Bugwnykqc.indirect [Mass or moles/Vol]0.3 mg/dLNormal0.1-0.9 [facility] HospitalComment on above:Performed By: #### [id number] #### [facility] [address] [place], [place] [address]Qdtsbylv (S) [Mass/Vol]3.2 g/dLNormal1.4-4.0[facility] Berger HospitalComment on above:Performed By: #### [id number] #### [facility] [address] [place] [address]Fzkchyd [Mass/Vol]7.0 g/dLNormal6.0-7.8[facility] Berger HospitalComment on above:Performed By: #### [id number] #### [facility] [address] [place] [address]Ijxvdu Levelon 55-15-4150Ysaafr [Catalytic activity/Vol]9 U/L Gls97-25DdgcsuOhiohealth Berger HospitalComment on above:Performed By: #### [id number] #### [facility] [address] [place], [place] [address]SX & PTTon [id number] Coag (PPP) [Time]31.4 second(s)Normal 25.1-36.5FClermont County HospitalComment on above:Result Comment: Parameter 15 days - 4 weeks 1 - [...] the same coagulation reagent and instrumentation as [facility]. Currently there are no coagulation studies available worldwide for children to 14 days, andno normal ranges. Heparin therapeutic range (represented by Anti-Factor Xa activity of 0.2 - 0.4 U/mL) corresponds to PTT of 56.6 - 109.0 sec.Performed By: #### [id number] #### [facility] [address] [place], [place] [address]ARK Coag (PPP) [Relative time]0.95 {INR}Invalid Interpretation CodeOhiohealth Berger HospitalComment on above:Result Comment: INR results are specifically intended to assess patients stabilized on long-term Anticoagulation therapy suggested INR???s ???Less Intensive Anticoagulation??? 2.0 ??? 3.0 Conventional Range 3.0 ??? 4.5Performed By: #### [id number] #### [facility] [address] [place], [place] [address]NJ Coag (PPP) [Time]10.6 second(s)Normal9.4-12.5Fisher [facility] Shock Trauma CenterComment on above:Result Comment: 15 days - 4 weeks 1 - [...] the same coagulation reagent and instrumentation as [facility]. Currently there are no coagulation studies available worldwide for children to 14 days, andno normal ranges.Performed By: #### [id number] #### [facility] [address] [place], [place] [address]Cilchmla 0 Hr.on 34-20-0971Bsjdyztq HS2.60 pg/mLLow10.10-27.10 [facility] HospitalComment on above:Result Comment: The 95% CI (Confidence Interval) PPV (Positive Predictive Value) for myocardial infarction in females is 38 pg/mL, in males 51 pg/mL. The results should be used in conjunction with clinical conditions of myocardial infarction. (Access High Sensitivity Troponin I Instructions For Use, [employer], October 2017)Performed By: #### [id number] #### [facility] [address] [place], [place] [address]Gaxahjwy 1 Hr.on 71-90-6391Hmffotsp HS2.60 pg/mLLow10.10-27.10 [facility] HospitalComment on above:Result Comment: The 95% CI (Confidence Interval) PPV (Positive Predictive Value) for myocardial infarction in females is 38 pg/mL, in males 51 pg/mL. The results should be used in conjunction with clinical conditions of myocardial infarction. (Access High Sensitivity Troponin I Instructions For Use, [employer], October 2017)Performed By: #### [id number] #### [facility] [address] [place], [place] [address]IM Chest 2 Viewson [id number] Chest 2 ViewsExam Date/Time: 02/14/2024 13:01 EST Reason for Exam: Difficulty breathing Report IMPRESSION: No acute findings, within limits of shallow inspiration. EXAMINATION: XR Chest 2 Views Clinical History: Difficulty breathing. Comparison: 01/23/2024. RESULT: Shallow inspiration. No focal consolidation. No pleural effusion. No pneumothorax. Normal cardiomediastinal silhouette. No acute osseous findings. Ordering Provider: Jorge Mcintosh FINAL REPORT Dictated: 02/14/2024 2:28 pm Gene Gamboa MD Signed (Electronic Signature): 02/14/2024 2:28 pm Signed by: Gene Gamboa MD Transcribed by: KIERRA Technologist: DPR Technical Comments Radiation Dose: Ka,r in mGy = . DAP = .NormalOhiohealth Berger HospitaleGFRon 26-79-2716rSTU686 mL/min/1.73 m2 Normal>=59Ohio[facility] Berger HospitalComment on above:Performed By: #### [id number] #### [facility] [address] [place], [place] [address]GO Note-Physicianon [id number] Note-PhysicianED Note-Physician Basic Information Time Seen: Manuel Naik PA-C 02/04/2024 17:03 Chief Complaint Pt states that she is having back pain. Pt states that she is having back surgery in two days for abuldging disk. History of Present Illness Patient is a 48-year-old female that presents today for evaluation of acute on chronic back pain. She states that she has having surgery in 2 days on bulging disks in her lower back with a [facility] neurosurgeon. She states that she is unable [...] other associated symptoms no other prior treatments orcomplaints. Family: Reviewed and noncontributory Social: lives at [...] [facility]. She is unable to [...] on any narcotic pain medication as an outpatient . Provided her with a dose of IM [...] Once, Stop date 02/04/24 17:34:00 EST, STAT, Startdate 02/04/24 17:34:00 EST, 02/04/24 17:34:00 EST tizanidine, 2 mg = 0.5 tab(s), Tab, Oral, Once, Stop date 02/04/24 17:34:00 EST, STAT, Start date 02/04/24 17:34:00 EST, 02/04/24 17:34:00 EST tizanidine, 2 mg = 1 tab(s), Oral, q8hr, X 7 day(s), # 21 tab(s), Refills(s) 0, Pharmacy: [facility]/pharmacy #[id number], 160, cm, 02/04/24 17:06:00 EST, Height/Length Dosing, 114.8, kg, 02/04/24 17:06:00 EST, Weight Dosing Medications Administered Given morphine 4 mg/mL Inj, 4 mg, IntraMuscular tiZANidine 4 mg Tab, 2 mg, Oral Disposition Plan Patient Discharge Condition Stable Discharge Disposition Home Discharge Prescription List Prescriptions tiZANidine 2 mg Tab, 2 mg= 1 tab(s), Oral, q8hr Follow-up With When Contact Information Mayra Rosas In 3 days 02/07/2024 EST [address], [address] [place] [id number]- Business (1) Additional Instructions: Patient Education Acute Back Pain, Adult Attestation Patient seen and evaluated by the physician construction assistant. Attending physician was present in the emergency department and supervised care. This visit was performed by both the physician and an APC. I performed all aspects of the MDM as documented. This report was transcribed using voice recognition software. Every effort was made to ensure accuracy, however, inadvertently computerized bill recapitulation clerk mistakes may be present. Appropriate healthcare PPE was used in evaluating this patient. The patient was placed in a mask. The healthcare provider was wearing mask, gloves, and utilizing proper hand hygiene. All equipment was properly cleansed. I performed a substantive part of the MDM during the patient???s E/M visit. I personally made or approved the docume (more content not included)...Normal [facility] HospitalComment on above:Result Comment: Electronically Signed By: Manuel Naik PA-C\.br\Date and Time Signed: 02/04/2420:45 EST\.br\Electronically Co-Signed By: Jorge Mcintosh DO\.br\Date and Time Co- Signed: 02/07/24 06:59 ESTBlood type and Indirect antibody screen panel (Bld)on [id number] group Nom (Bld)OUBluffton HospitalBlood group antibody screen QlNegSelect Medical [facility] Clinic Rehabilitation [facility], [place] Ag Ql (Bld)Positive [facility] Medical CenterAB group Nom (Bld)[facility] Medical CenterComment on above:Performed By: #### [id number] #### DINORA Rausch ([id number]) [facility] ([facility]) [id number] [place] [address] USBlood group antibody screen QlNegativeNormalUniversity Hospitals Floyd Medical Center Medical CenterComment on above:Performed By: #### [id number] #### DINORA Rausch ([id number]) [facility] ([facility]) [address] [place] [address] USD Ag Ql (Bld)PositiveUniversity Hospitals Health SystemComment on above:Performed By: #### [id number] #### DINORA Rausch ([id number]) [facility] ([facility]) [address] [place] [address] USFL LESS THAN 1 HOURon [id number] LESS THAN 1 HOURThese images are not reportable by radiology and will not be interpreted by Radiologists.University Hospitals Health SystemRF Unspecified body region Less than 1 hour Views during surgeryon [id number] images are not reportable by radiology and will not be interpreted by Radiologists.IMAGINGVERAB/VERIFY ABORHon [id number] group Nom (Bld)O [facility] Hospit[facility] Health SystemComment on above:Order Comment: This is for confirming/verifying history of ABORh on file for transfusion of bloodproducts. If this is not for transfusion, please order an ABO/RH [[id number]]. If you have any questions or unsure what to order, please call the blood bank. Performed By: #### VERAB #### DINORA Rausch ([id number]) [facility] ([facility]) [address] [place] [address] USD Ag Ql (Bld)PositiveUniversity Hospitals Health SystemComment on above:Order Comment: This is for confirming/verifying history of ABORh on file for transfusion of bloodproducts. If this is not for transfusion, please order an ABO/RH [[id number]]. If you have any questions or unsure what to order, please call the blood bank.Performed By: #### VERAB #### DINORA Rausch ([id number]) [facility] ([facility]) [address] [place] [address] USVERIFY ABO/Rh Group Teston [id number] group Nom (Bld)O [facility] HospitalD Ag Ql (Bld)[facility] Park HospitalED Clinical Summaryon [id number] Clinical SummaryED Clinical Summary [place] [id number] ED Clinical Summary Person Information Name: JERAD TRACY [place] Age: 48 Years : 1975 Sex: Female Language: Malagasy PCP: Mayra Rincon Marital Status: Visit Id: Visit Reason: [...] 02/04/2024 18:26:07 02/04/2024 18:26:07 02/04/2024 18:26:07 ADDRESS: [address] [place] [id number] PHYS DOC NOTES: MEDICAL INFORMATION: Prescriptions Given: New Medications [id number], [address] [place], [place] [id number], [phone] tizanidine (tiZANidine 2 mg Tab) 1 Tablets [...] Pain, Adult Follow up: With: Address: When: Mayra Rosas [address], [address], [address] [address] Business (1) In 3 days 02/07/2024 DIAGNOSIS: Back pain; Lumbar radiculopathy; Lumbar spinal stenosisNoCincinnati Shriners Hospital Patient Summaryon [id number] Patient SummaryED Patient Summary [address] [address] Patient Discharge Instructions Person Information Name: JERAD TRACY Age: 48 Years Arrival Date: 02/04/2024 16:57:07 Discharge Diagnosis: Back pain; Lumbar radiculopathy; Lumbar spinal stenosis Primary Care Physician: Mayra Rincon Provider Information Primary Provider: Jorge Mcintosh DO Advanced Dietetic Intern:Manuel Naik PA-C. The exam and treatment you received in the Emergency Department were for an urgent problem and are not intended as complete care. It is important that you follow up with a doctor, nurse practitioner,or physician???s construction assistant for ongoing care. If your symptoms become worse or you do not improve asexpected and you are unable to reach your usual health care provider, you should return to the Emergency Department. We are available 24 hours a day. JERAD TRACY has been given the following list of patient education materials, prescriptions andfollow-up instructions: Follow-up Instructions: With: Address: When: Mayra Rosas [address], [address], [address] [address] Business (1) In 3 days 02/07/2024 In the event that this physician does not participate in your insurance network, please consult with your insurance company to find a nearby participating provider. Patient Education Materials: Acute Back Pain, Adult A MESSAGE TO ALL PATIENTS REGARDING OPIOIDS PRESCRIPTION OPIOIDS: WHAT YOU NEED TO KNOW Prescription opioids can be used to help relieve qjivlsbu-et-uahsov pain and are often prescribed following a [...] guidance from the Food and Drug Administration (www.fda.gov/Drugs/ResourcesForYou). ??? Visit www.cdc.gov/drugoverdose to learn about the risks of opioids abuse and overdose. ??? If you believe you may be strug (more content not included)...[facility] Samaritan Hospitaltaphylococcus aureus.methicillin resistant isolateon 02-46-9956EOPK isol Org specific cx Ql (Nose)Test: Staphylococcus aureus/MRSA colonization, Culture Specimen Source: Nares/Axilla/Groin Specimen Type: Swab Specimen Date: 01/29/20241128 Result Date: 01/31/2024 0859 Result Status: Final result Abnormal: No Resulting Lab: [facility] [address] [place] [address] CULTURE No Staphylococcus aureus isolatedNoMercy Health Urbana HospitalComment on above:Performed By: #### [id number] #### JOLENE Cantu ([id number]) [facility] ([facility]) [address] [place] [id number] Note-Physicianon [id number] Note-PhysicianED Note-Physician Basic Information Time Seen: Matthew MILES, Zhane Enriquez 01/25/2024 15:39 Chief Complaint chronic low back pain, worse today History of Present Illness Patient is a 48-year-old female with a history of arthritis, bipolar disorder, and chronic back pain who presents to the ED with worsening lower back pain over the past couple of days. Patient narciso is scheduled to have back surgery on 02/05 for herniated disc by a neurosurgeon at [facility]. She notes over the past couple of days she has been worsening pain. Patient denies any known in jury or trauma. She notes tingling down the [...] tablet as needed 3 times daily with 1dose being at bedtime, X 7 day(s), # 21 tab(s), Refills(s) 0, Pharmacy: [facility]/pharmacy #[id number], 160, cm, 01/25/24 15:37:00 EDT, Height/Length Dosing, 114.8, kg, 01/25/24 15... ketorolac, 30 mg = 1 mL, Injection, IntraMuscular, Once, Stop date 01/25/24 16:02:00 EDT, STAT, Start date 01/25/24 16:02:00 EDT, 01/25/24 16:02:00 EDT lidocaine topical, 1 patch(es), Topical, Daily, 7 patch(es), Refill(s) 0, apply 12 hours on and 12 hours off daily, [facility]/pharmacy #[id number], 160, cm, 01/25/24 15:37:00 EDT, Height/Length Dosing, 114.8, kg, 01/25/24 15:37:00 EDT, Weight Dosing morphine, 4 mg = 1 mL, Injection, IntraMuscular, Once, Stop date 01/25/24 16:02:00 EDT, STAT, Startdate 01/25/24 16:02:00 EDT, 01/25/24 16:02:00 EDT predniSONE, 10 mg = 1 tab(s), Oral, As Directed, Take 3 tabs by mouth daily x3 days, then 2 tabs daily x3 days, then 1 tab daily x3 days., # 18 tab(s), Refills(s) 0, Pharmacy: [facility]/pharmacy #[id number], 160, cm, 01/25/24 15:37:00 EDT, Height/Length [...] Follow-up With When Contact Information Pain Clinic: [facility] [phone] In 3 days 01/28/2024 EST Additional Instructions: Call to schedule a follow-up appointment with your neurosurgeon and/or pain management for further management of care. Use (more content not included)...[facility]ark HospitalComment on above:Result Comment: Electronically Signed By: Zhane Castro PA-C\.br\Date and Time Signed: 01/24/2417:27 EDT\.br\Electronically Co-Signed By: Jorge Mcintosh DO\.br\Date and Time Co-Signed: 01/27/24 09:14 ESTCB W Auto Differential panel (Bld)on [id number] (Bld) [#/Vol]0.01 10*3/[facility]Basophils/100 WBC (Bld)0.1 %0.0 - 2.0 %[facility] HospitalEosinophils (Bld) [#/Vol]0.14 10*3/[facility] Eosinophils/100 WBC (Bld)1.3 %0.0 - 6.0 %[facility] Erythrocyte distribution width (RBC) [Ratio]13.4 %11.5 - 14.5 %[facility] HospitalHematocrit (Bld) [Volume fraction]42.1 %36.0 - 46.0 % [facility] HospitalHemoglobin (Bld) [Mass/Vol]13.6 g/dL12.0 - 16.0 g/dLUnWood County HospitalImmamount st. mary hospital granulocytes (Bld) [#/Vol]0.03 10*3/uLUnWood County HospitalImchristian hospital granulocytes/100 WBC (Bld)0.3 % 0.0 - 0.9 %[facility] on above:Immature Granulocyte Count (IG) includes promyelocytes, myelocytes and metamyelocytes but does not include bands. Percent differential counts (%) should be interpreted in the context of the absolute cell counts (cells/UL).Interpretation and review of laboratory resultsAbnormalUBluffton HospitalLymphocytes (Bld) [#/Vol]1.25 10*3/uLUnWood County HospitalLymphocytes/100 WBC (Bld) 11.4 %13.0 - 44.0 %[facility] ShawH (RBC) [Entitic mass]30 pg26.0 - 34.[address] Joseph Warren HospitalHC (RBC) [Mass/Vol]32.3 g/dL 32.0 - 36.0 g/dLUnMercy Health St. Joseph Warren HospitalV (RBC) [Entitic vol]93 fL80 - 100 fLUniShelby Memorial HospitalMonocytes (Bld) [#/Vol]0.5 10*3/uL [facility] HospitalMonocytes/100 WBC (Bld)4.6 %2.0 - 10.0 % [facility] HospitalNeutrophils (Bld) [#/Vol]9.03 10*3/uLHigh [facility] on above:Percent differential counts (%) should be interpreted in the context of the absolute cell counts (cells/uL). Neutrophils/100 WBC (Bld)82.3 %40.0 - 80.0 %[facility] Nucleated RBC/100 WBC (Bld) [Ratio]0 %[facility] HospitalPlatelets (Bld) [#/Vol]430 10*3/uLUniversity Hospitals of ClevelandRBC (Bld) [#/Vol]4.53 10*6/[facility] HospitalWBC (Bld) [#/Vol]11 10*3/[facility] CampusBasophils (Bld) [#/Vol] 0.01 x10*3/uLNormal0.00-0.10[facility]aconess HospitalComment on above:Performed By: #### 38411-6 #### SANTOSH BAI ([id number]) [facility] ([facility]) [address] [place], [place] [address]Aitclbqmv/100 WBC (Bld)0.1 %Normal0.0-2.0UnBarnesville HospitalComment on above:Performed By: #### 93470-4 #### SANTOSH BAI ([id number]) [facility] ([facility]) [address] [place] [address]Kowbiqvcfry (Bld) [#/Vol]0.14 x10*3/uLNormal0.00-0.70 [facility] HospitalComment on above:Performed By: #### 29983-3 #### SANTOSH BAI (48869) [facility] ([facility]) [address] [place], [place] [address]Gnwmjjhcoij/100 WBC (Bld)1.3 %Normal0.0-6.0[facility]acon[facility] HospitalComment on above:Performed By: #### 09700-9 #### SANTOSH BAI ([id number]) [facility] ([facility]) [address] [place], [place] [address]Thttjfoiuzx distribution width (RBC) [Ratio]13.4 %Normal 11.5-14.5[facility]acon[facility] HospitalComment on above:Performed By: #### 22159-4 #### SANTOSH BAI ([id number]) [facility] ([facility]) [address] [place], [place] [address]Nlyvushrsa (Bld) [Volume fraction]42.1 %Cwtdfc04.0-46.0 [facility] HospitalComment on above:Performed By: #### 36652-7 #### SANTOSH BAI ([id number]) [facility] ([facility]) [address] [place], [place] [address]Ijbzzutcem (Bld) [Mass/Vol]13.6 g/pPZspxva45.0-16.0[facility] HospitalComment on above:Performed By: #### 02588-2 #### SANTOSH BAI (87943) [facility] ([facility]) [address] [place], [place] [address]Ofcnwepf granulocytes (Bld) [#/Vol]0.03 x10*3/uLNormal 0.00-0.70UnBarnesville HospitalComment on above:Performed By: #### 15092-3 #### SANTOSH BAI (88698) [facility] ([facility]) [address] [place], [place] [address]Jiqrfker granulocytes/100 WBC (Bld)0.3 %Normal0.0-0.9 [facility] HospitalComment on above:Result Comment: Immature Granulocyte Count (IG) includes promyelocytes, myelocytes and metamyelocytes but does not include bands. Percent differential counts (%) should be interpreted in the context of the absolute cell counts (cells/UL). Performed By: #### 23853-7 #### SANTOSH BAI ([id number]) [facility] ([facility]) [address] [place], [place] [address]Tboaijtozia (Bld) [#/Vol]1.25 x10*3/uLNormal1.20-4.80 [facility] HospitalComment on above:Performed By: #### 16234-7 #### SANTOSH BAI ([id number]) [facility] ([facility]) [address] [place], [place] [address]Xgtjhnrqsfs/100 WBC (Bld)11.4 %Xxggok51.0-44.0[facility] HospitalComment on above:Performed By: #### 32404-9 #### SANTOSH BAI ([id number]) [facility] ([facility]) [address] [place], [place] [address]TTC (RBC) [Entitic mass]30.0 lrGwurnq27.0-34.0UnBarnesville HospitalComment on above:Performed By: #### 08425-7 #### SANTOSH BAI (54506) [facility] ([facility]) [address] [place], [place] [address]QKHO (RBC) [Mass/Vol]32.3 g/tDCwafkh11.0-36.0UnBarnesville HospitalComment on above:Performed By: #### 04163-5 #### SANTOSH BAI (52426) [facility] ([facility]) [address] [place], [place] [address]ZNS (RBC) [Entitic vol]93 oFClehps51-760XurcfbsmswBarnesville HospitalComment on above:Performed By: #### 22592-7 #### SANTOSH BAI (54191) [facility] ([facility]) [address] [place], [place] [address]Lgnazdkmn (Bld) [#/Vol]0.50 x10*3/uLNormal0.10-1.00UnBarnesville HospitalComment on above:Performed By: #### 42509-8 #### SANTOSH BAI ([id number]) [facility] ([facility]) [address] [place], [place] [address]Ooxivmxfi/100 WBC (Bld)4.6 %Normal2.0-10.0UnBarnesville HospitalComment on above:Performed By: #### 71985-2 #### SANTOSH BAI ([id number]) [facility] ([facility]) [address] [place], [place] [address]Atkchsdaqro (Bld) [#/Vol]9.03 x10*3/uLHigh1.20-7.70UnBarnesville HospitalComment on above:Result Comment: Percent differential counts (%) should be interpreted in the context of the absolute cell counts (cells/uL).Performed By: #### 00401-1 #### SANTOSH BAI ([id number]) [facility] ([facility]) [address] [place], [place] [address]Lzoeayacfun/100 WBC (Bld)82.3 %Rifdux35.0-80.0[facility]aconess HospitalComment on above:Performed By: #### 15419-6 #### SANTOSH BAI (27868) [facility] ([facility]) [address] [place], [place] [address]Gosvifzpp RBC/100 WBC (Bld) [Ratio]0.0 /100 WBCsNormal0.0-0.0 [facility] HospitalComment on above:Performed By: #### 10335-9 #### SANTOSH BAI (33778) [facility] ([facility]) [address] [place], [place] [address]Srfjqmkcb (Bld) [#/Vol]430 x10*3/lDYeclna005-313SauiodwjmnBarnesville HospitalComment on above:Performed By: #### 91010-1 #### SANTOSH BAI (44059) [facility] ([facility]) [address] [place], [place] [address]EMF (Bld) [#/Vol]4.53 x10*6/uLNormal4.00-5.20UnBarnesville HospitalComment on above:Performed By: #### 20603-6 #### SANTOSH BAI (49294) [facility] ([facility]) [address] [place], [place] [address]ZXT (Bld) [#/Vol]11.0 x10*3/uLNormal4.4-11.3[facility]acon[facility] HospitalComment on above:Performed By: #### 64545-7 #### SANTOSH BAI (19856) [facility] ([facility]) [address] [place], [place] [address]Ugqbvunmyglpl metabolic 2000 panelon 38-23-3003Kogdpmg BCP dye [Mass/Vol]4.3 g/dL3.4 - 5.0 g/dLWestern Reserve HospitalP [Catalytic activity/Vol]93 U/L33 - 110 U/[facility] NorthT With P-5'-P [Catalytic activity/Vol]17 U/L7 - 45 U/[place] on above:Patients treated with Sulfasalazine may generate falsely decreased results for ALT.Anion gap [Moles/Vol]13 mmol/L10 - 20 mmol/L [facility] HospitalAST With P-5'-P [Catalytic activity/Vol]20 U/L9 - 39 U/[place] on above:MILD HEMOLYSIS DETECTED. The result may be falsely elevated due to hemolysis or other interferents.Clinical correlation is recommended. Repeat testing may be considered.Bilirubin [Mass/Vol]0.3 mg/dL0.0 - 1.2 mg/dLUnWood County HospitalCalcium [Mass/Vol]9 mg/dL8.6 - 10.3 mg/dLUnWood County HospitalChloride [Moles/Vol]108 mmol/LHigh98 - 107 mmol/[facility] HospitalCO2 [Moles/Vol]23 mmol/L21 - 32 mmol/[facility] HospitalCreatinine [Mass/Vol]0.78 mg/dL0.50 - 1.05 mg/dLUnWood County HospitaleGFR- PINFUniSuburban Community Hospital & [facility] on above: Calculations of estimated GFR are performed using the 2020 CKD-EPI Study Refit equation without therace variable for the IDMS-Traceable creatinine methods. https://jasn.asnjournals.org/content/early/ASN.6980131698 Glucose [Mass/Vol]106 mg/iHBgii70 - 99 mg/dLUnWood County Hospital Interpretation and review of laboratory resultsAbnormalUBluffton HospitalPotassium [Moles/Vol]4.3 mmol/L3.5 - 5.3 mmol/[place] on above:MILD HEMOLYSIS DETECTED. The result may be falsely elevated due to hemolysis or other interferents.Clinical correlation is recommended. Repeat testing may be considered.Protein [Mass/Vol]7.3 g/dL6.4 - 8.2 g/dLUnWood County HospitalSodium [Moles/Vol]140 mmol/L136 - 145 mmol/[facility] HospitalUrea nitrogen [Mass/Vol]17 mg/dL6 - 23 mg/dLUnBaylor Scott & White Medical Center – TemplevelandUnWood County HospitalAlbumin BCP dye [Mass/Vol]4.3 g/dLNormal3.4-5.0UnBarnesville Hospital Comment on above:Performed By: #### 84143-0 #### SANTOSH BAI (40654) [facility] ([facility]) [address] [place], [place] [address]DKE [Catalytic activity/Vol]93 U/OIxpfdj32-274ZqbvafgejwBarnesville HospitalComment on above:Performed By: #### 24294-6 #### SANTOSH BAI (65237) [facility] ([facility]) [address] [place], [place] [address]WJP With P-5'-P [Catalytic activity/Vol]17 U/LNormal7-45 [facility]acon[facility] HospitalComment on above:Result Comment: Patients treated with Sulfasalazine may generate falsely decreased results for ALT.Performed By: #### 03373-3 #### SANTOSH BAI (91792) [facility] ([facility]) [address] [place], [place] [address]Lujdl gap [Moles/Vol]13 mmol/UMvuuim72-90LkqoptiywqBarnesville HospitalComment on above:Performed By: #### 05853-4 #### SANTOSH BAI (60762) [facility] ([facility]) [address] [place], [place] [address]RUL With P-5'-P [Catalytic activity/Vol]20 U/LNormal9-39 [facility] HospitalComment on above:Result Comment: MILD HEMOLYSIS DETECTED. The result may be falsely elevated due to hemolysis or other interferents. Clinical correlation is recommended. Repeat testing may be considered.Performed By: #### 55961-2 #### SANTOSH BAI (22551) [facility] ([facility]) [address] [place], [place] [address]Qmhvoizpz [Mass/Vol]0.3 mg/dLNormal0.0-1.2[facility]acon[facility] HospitalComment on above:Performed By: #### 64940-8 #### SANTOSH BAI (31393) [facility] ([facility]) [address] [place], [place] [address]Xmpcmob [Mass/Vol]9.0 mg/dLNormal8.6-10.3[facility]aconess HospitalComment on above:Performed By: #### 70583-0 #### SANTOSH BAI (04978) [facility] ([facility]) [address] [place], [place] [address]Xwvpwaua [Moles/Vol]108 mmol/ZIpez49-024BkivmfvubiBarnesville HospitalComment on above:Performed By: #### 82398-8 #### SANTOSH BAI (33642) [facility] ([facility]) [address] [place], [place] [address]BC2 [Moles/Vol]23 mmol/JWhxtxv06-65FfupdqygmqProtestant Deaconess HospitalComment on above:Performed By: #### 04548-6 #### SANTOSH BAI (64990) [facility] ([facility]) [address] [place], [place] [address]Cehahxxkfh [Mass/Vol]0.78 mg/dLNormal0.50-1.05UnBarnesville HospitalComment on above:Performed By: #### 37018-2 #### SANTOSH BAI (89073) [facility] ([facility]) [address] [place], [place] [address]UIM/1.73 sq M.predicted MDRD (S/P/Bld) [Vol rate/Area] mL/min/{1.73_m2}Normal>60UnBarnesville HospitalComment on above:Result Comment: Calculations of estimated GFR are performed using the 2020 CKD-EPI Study Refit equation without the race variable for the IDMS-Traceable creatinine methods. https://jasn.asnjournals.org/content//ASN.5257883856Hrwzvmzmk By: #### 39902-6 #### SANTOSH BAI (39271) [facility] ([facility]) [address] [place], [place] [address]Xfqwolt [Mass/Vol]106 mg/xUXskg04-27CbdarprqofBarnesville HospitalComment on above:Performed By: #### 88930-6 #### SANTOSH BAI (81465) [facility] ([facility]) [address] [place], [place] [address]Ugchwmqkn [Moles/Vol]4.3 mmol/LNormal3.5-5.3[facility]acon[facility] HospitalComment on above:Result Comment: MILD HEMOLYSIS DETECTED. The result may be falsely elevated due to hemolysis or other interferents. Clinical correlation is recommended. Repeat testing may be considered.Performed By: #### 00685-0 #### SANTOSH BAI (09057) [facility] ([facility]) [address] [place], [place] [address]Hysacbk [Mass/Vol]7.3 g/dLNormal6.4-8.2[facility]acon[facility] HospitalComment on above:Performed By: #### 22316-2 #### SANTOSH BAI (17803) [facility] ([facility]) [address] [place], [place] [address]Fphsph [Moles/Vol]140 mmol/WDstyuu994-793DqrnmainqzBarnesville HospitalComment on above:Performed By: #### 59777-4 #### SANTOSH BAI (89053) [facility] ([facility]) [address] [place], [place] [address]Wodh nitrogen [Mass/Vol]17 mg/dLNormal6-23Pro[facility]acon[facility] HospitalComment on above:Performed By: #### 51406-5 #### SANTOSH BAI (30697) [facility] ([facility]) [address] [place], [place] [address]FQ Clinical Summaryon [id number] Clinical SummaryED Clinical Summary [address] [address] ED Clinical Summary Person Information Name: JERAD TRACY [place] Age: 48 Years : 1975 Sex: Female Language: Malagasy PCP: Mayra Rincon Marital Status: Visit Id: Visit Reason: [...] 01/25/2024 16:33:50 01/25/2024 16:33:50 01/25/2024 16:33:50 ADDR[place]: [place] [id number] PHYS DOC NOTES: MEDICAL INFORMATION: Prescriptions Given: Medications to Continue Taking That Have Changed [id number], [address] [place], [place] [id number], [phone] START: cyclobenzaprine (cyclobenzaprine 5 mg Tab) 1 [...] As Directed. Take 3 tabs by mouth dailyx3 days, then 2 tabs daily x3 days, [...] (azithromycin 250 mg Tab 5-day Dose Pack (Z-Aydee)) 1 Packets By Mouth As Directed for 5Days. as directed on package labeling. Refills: 0. [...] PATIENT EDUCATION INFORMATION: Instructions: Chronic Back Pain, Rgpb-hk-Owse Follow up: With: Address: When: Pain Clinic: [facility] [phone] In 3 days 01/28/2024 Comments: Call to schedule a follow-up appointment with your neurosurgeon and/or pain management for further management of care. Use the prednisone as prescribed. Use the Flexeril and lidocaine patches as needed for pain along with Tylenol and Motrin. Return to ED with any new or worsening symptoms. With: Address: When: Mayra Rosas [address] [facility], [address], [place] [id number] Business (1) In 3 days DIAGNOSIS: Chronic bilateral low back pain with sciatica; Other chronic painNormalFisher [facility] of [facility] Patient Summaryon [id number] Patient SummaryED Patient Summary [address] [address] Patient Discharge Instructions Person Information Name: JERAD TRACY Age: 48 Years Arrival Date: 01/25/2024 15:22:45 Discharge Diagnosis: Chronic bilateral low back pain with sciatica; Other chronic pain Primary Care Physician: Mayra Rincon Provider Information Primary Provider: Jorge Mcintosh DO Advanced Dietetic Intern:Zhane Castro PA-C. The exam and treatment you received in the Emergency Department were for an urgent problem and are not intended as complete care. It is important that you follow up with a doctor, nurse practitioner,or physician???s construction assistant for ongoing care. If your symptoms become worse or you do not improve asexpected and you are unable to reach your usual health care provider, you should return to the Emergency Department. We are available 24 hours a day. JERAD TRACY has been given the following list of patient education materials, prescriptions andfollow-up instructions: Follow-up Instructions: With: Address: When: Pain Clinic: [facility] [phone] In 3 days 01/28/2024 Comments: Call to schedule a follow-up appointment with your neurosurgeon and/or pain management for further management of care. Use the prednisone as prescribed. Use the Flexeril and lidocaine patches as needed for pain along with Tylenol and Motrin. Return to ED with any new or worsening symptoms. With: Address: When: Mayra Rosas [address], [address], [address] [address] Business (1) In 3 days In the event that this physician does not participate in your insurance network, please consult with your insurance company to find a nearby participating provider. Patient Education Materials: Chronic Back Pain, Lfpj-yw-Ggdu A MESSAGE TO ALL PATIENTS REGARDING OPIOIDS PRESCRIPTION OPIOIDS: WHAT YOU NEED TO KNOW Prescription opioids can be used to help relieve rwdmdoea-ql-vgukwq pain and are often prescribed following a [...] visitors, children, friends, and (more content not included)...[facility] HospitalUS Lower Extremity Venous Duplex Bilateralon [id number] Lower Extremity Venous Duplex BilateralExam Date/Time: 01/23/2024 18:04 EDT Reason for Exam: [...] Castro FINAL REPORT Dictated: 01/24/2024 10:16 am Gene Gamboa MD Signed (Electronic Signature): 01/24/2024 10:16 am Signed by: Gene Gamboa MD Transcribed by: KIERRA Technologist: [facility] HospitalBMPon [id number] gap [Moles/Vol]9 mmol/LNormal6-16[facility] Comment on above:Performed By: #### [id number] #### [facility] [address] [place], [place] [address]Ftmatcu [Mass/Vol]7.9 mg/dLLow8.9-11.1FClermont County HospitalComment on above:Performed By: #### [id number] #### [facility] [address] [place], [place] [address]Iabhllab [Moles/Vol]107 mmol/SHxeszv581-632XwffaoOhiohealth Berger HospitalComment on above:Performed By: #### [id number] #### [facility] [address] [place], [place] [address]PW9 [Moles/Vol]29 mmol/QKqnxsl61-55DrwjjcOhiohealth Berger Hospital Comment on above:Performed By: #### [id number] #### [facility] [address] [place], [place] [address]Qaasfniglp [Mass/Vol]0.8 mg/dLNormal0.5-1.3FClermont County HospitalComment on above:Performed By: #### [id number] #### [facility] [address] [place], [place] [address]Bbqsvhg [Mass/Vol]118 mg/iOFrxodp42-113QqybhgOhiohealth Berger HospitalComment on above:Performed By: #### [id number] #### [facility] [address] [place], [place] [address]Cxlqghcch [Moles/Vol]3.7 mmol/LNormal3.5-5.3FClermont County HospitalComment on above:Performed By: #### [id number] #### [facility] [address] [place], [place] [address]Mrwxvm [Moles/Vol]141 mmol/YLwlotr325-938WosdwjOhiohealth Berger HospitalComment on above:Performed By: #### [id number] #### [facility] [address] [place] [address]Avrw nitrogen [Mass/Vol]12 mg/dLNormal5-21[facility] HospitalComment on above:Performed By: #### [id number] #### [facility] [address] [place] [address]Unmn nitrogen/Creatinine [Mass ratio]15 No WyifvCuynuh57-88 [facility] HospitalComment on above:Performed By: #### [id number] #### [facility] [address] [place] [address]ISUoy 42-40-1195Wxi Ctr BNPPassNormalOhiohealth Berger HospitalComment on above:Performed By: #### [id number] #### [facility] [address] [place] [address]Uzehrekbghk peptide B (Bld) [Mass/Vol]85 pg/mLHigh5-80[facility] HospitalComment on above:Performed By: #### [id number] #### [facility] [address] [place] [address]YMN w/ Auto Diffon 36-49-2806Hzborbyle/100 WBC (Bld)0.6 %Normal 0.0-2.0[facility] Berger HospitalComment on above:Performed By: #### [id number] #### [facility] [address] [place] [address]Qiortzedh/Leukocytes Auto (Bld) [Pure # fraction]0.0 E9/LNormal 0.0-0.2FClermont County HospitalComment on above:Performed By: #### [id number] #### [facility] [address] [place] [address]Wovtyeqgaek (Bld) [#/Vol]0.4 E9/LNormal0.0-0.5FClermont County HospitalComment on above:Performed By: #### [id number] #### [facility] [address] [place] [address]Jojbjpwpuez/100 WBC (Bld)6.4 %Normal0.0-8.0[facility] HospitalComment on above:Performed By: #### [id number] #### [facility] [address] [place] [address]Glwoihiahyc distribution width (RBC) [Ratio]14.0 %Normal 10.9-14.2FClermont County HospitalComment on above:Performed By: #### [id number] #### [facility] [address] [place] [address]Twbarwpkdl (Bld) [Volume fraction]35.4 %Kvzbfx27.0-46.0[facility] HospitalComment on above:Performed By: #### [id number] #### [facility] [address] [place] [address]Nwfojtrvlq (Bld) [Mass/Vol]12.2 g/zNXkvjch91.0-16.0[facility] HospitalComment on above:Performed By: #### [id number] #### [facility] [address] [place] [address]Qityhpokbvd (Bld) [#/Vol]2.1 E9/LNormal1.0-4.0[facility] HospitalComment on above:Performed By: #### [id number] #### [facility] [address] [place] [address]Zlqfcmpninn/100 WBC (Bld)33.8 %Ijfygl87.0-50.0[facility] HospitalComment on above:Performed By: #### [id number] #### [facility] [address] [place] [address] [id number] (RBC) [Entitic mass]31.2 bjZzklpw84.0-34.0[facility] HospitalComment on above:Performed By: #### [id number] #### [facility] [address] [place] [address] [id number] (RBC) [Mass/Vol]34.3 g/uASohxhw46.4-36.0[facility] HospitalComment on above:Performed By: #### [id number] #### [facility] R [facility] [address] [place] [address] [id number] (RBC) [Entitic vol]90.9 tKZslati28.0-100.0[facility] Berger HospitalComment on above:Performed By: #### [id number] #### [facility] [address] [place] [address] 77844Xfeagqjui (Bld) [#/Vol]0.5 E9/LNormal0.2-1.0[facility] HospitalComment on above:Performed By: #### [id number] #### [facility] [address] [place] [address] 92270Lfeaxijjyym (Bld) [#/Vol]3.1 E9/LNormal2.0-7.5FClermont County HospitalComment on above:Performed By: #### [id number] #### [facility] [address] [place] [address] 85248Dgekfbmnpzq/100 WBC (Bld)50.6 %Badtrt24.0-75.0[facility] Berger HospitalComment on above:Performed By: #### [id number] #### [facility] [address] [place] [address] 86587Syqlbact619.0 E9/QJorbwh049.0-500.0[facility] Comment on above:Performed By: #### [id number] #### [facility] [address] [place], [place] [address]Tabycuva mean volume (Bld) [Entitic vol]7.9 fLNormal6.4-10.8 [facility] HospitalComment on above:Performed By: #### [id number] #### [facility] [address] [place], [place] [address]ZLY (Bld) [#/Vol]3.9 E12/LLow4.3-5.9[facility] Comment on above:Performed By: #### [id number] #### [facility] [address] [place], [place] [address]REI corrected for nucl RBC Auto (Bld) [#/Vol]6.2 E9/LNormal 4.0-11.0[facility] Berger HospitalComment on above:Performed By: #### [id number] #### [facility] [address] [place], [place] [address]DCCQUTBSLCmpiobo By: SYSTEM SYSTEM on 22-22-5319Hcrwreu [Mass/Vol]3.8 g/dLNormal3.3 - 5.0 gm/dLRemisol ChemAlbumin/Globulin [Mass ratio] 1.4 {ratio}Normal1.1 - 2.2Remisol ChemALP [Catalytic activity/Vol]87 [iU]/d Zuswcl75 - 98 Int._Unit/LRemisol ChemALT No additional P-5'-P [Catalytic activity/Vol]25 [iU]/dNormal6 - 46 Int._Unit/LRemisol ChemAnion gap [Moles/Vol]9 mmol/LNormal6 - 16 mEq/LRemisol ChemAST [Catalytic activity/Vol]28 [iU]/dNormal 5 - 43 Int._Unit/LRemisol ChemBilirubin [Mass/Vol]0.3 mg/dLNormal0.0 - 1.1 mg/dL Remisol ChemBilirubin.direct [Mass/Vol]0.0 mg/dLNormal0.0 - 0.4 mg/dLRemisol ChemBilirubin.indirect [Mass or moles/Vol]0.3 mg/dLNormal0.1 - 0.9 mg/dLRemisol ChemCalcium [Mass/Vol]7.9 mg/dLLow8.9 - 11.1 mg/dLRemisol ChemChloride [Moles/Vol]107 mmol/BEghyjb771 - 111 mmol/LRemisol ChemCO2 [Moles/Vol]29 mmol/L Hwggwq83 - 31 mmol/LRemisol ChemCreatinine [Mass/Vol]0.8 mg/dLNormal0.5 - 1.3 mg/dLRemisol OabpyLAK62 mL/min/1.73 b0Lyctqg>=59mL/min/1.73 w1Jqdqedt Chem Globulin (S) [Mass/Vol]2.7 g/dLNormal1.4 - 4.0 gm/dLRemisol ChemGlucose [Mass/Vol]118 mg/gXYlmbex97 - 199 mg/dLRemisol ChemLipase [Catalytic activity/Vol]12 U/LLow13 - 58 unit/LRemisol ChemPotassium [Moles/Vol]3.7 mmol/L Normal3.5 - 5.3 mmol/LRemisol ChemProtein [Mass/Vol]6.5 g/dLNormal6.0 - 7.8 gm/dLRemisol ChemSodium [Moles/Vol]141 mmol/QXjpcci028 - 145 mmol/LRemisol Chem Troponin HS3.40 pg/mLLow10.10 - 27.10 pg/mLRemisol ChemComment on above: Interpretive Data: The 95% CI (Confidence Interval) PPV (Positive Predictive Value) for myocardial infarction in females is 38 pg/mL, in males 51 pg/mL. The results should be used in conjunction withclinical conditions of myocardial infarction. (Access High Sensitivity Troponin I Instructions For Use, Katlyn Edson, October 2017)Urea nitrogen [Mass/Vol]12 mg/dLNormal5 - 21 mg/dLRemisol ChemUrea nitrogen/Creatinine [Mass ratio]15 mg/fgEvdvcv81 - 20Remisol ChemCHEMISTRY Ordered By: Jerad Meraz on 53-03-1966Sxxmhxldlwu peptide B (Bld) [Mass/Vol] 85 pg/mLHigh5 - 80 pg/mLFTMC HemeManSSED Clinical Summaryon [id number] Clinical SummaryED Clinical Summary [place] [id number] ED Clinical Summary Person Information Name: JERAD TRACY [place] Age: 48 Years : 1975 Sex: Female Language: Malagasy PCP: Mayra Rincon Marital Status: Visit Id: Visit Reason: [...] 01/23/2024 18:45:44 01/23/2024 18:45:44 01/23/2024 18:45:44 ADDRESS: [address] [place] [id number] PHYS DOC NOTES: MEDICAL INFORMATION: Prescriptions Given: New Medications [facility]/pharmacy #[id number], [address], [place] [id number], [phone] azithromycin (azithromycin 250 mg Tab 5-day Dose Pack (Z-Aydee)) 1 Packets By Mouth As Directed for 5Days. as directed on package labeling. Refills: 0. [...] PATIENT EDUCATION INFORMATION: Instructions: Abdominal Pain, Adult, Niir-vc-Fzak Follow up: With: Address: When: Mayraashia Rosas [address], [address], [address] [address] Gravitant (1) In 3 days 01/26/2024 Comments: Call to schedule a follow-up appoint with your family physician in the next 2 to 3 days. Continue to elevate your feet and wear compression stockings. Return to ED with any new or worsening symptoms. DIAGNOSIS: Abdominal pain, RUQ; Bilateral leg edema; COPD exacerbationBrandiBennett Huang Medical CenterED Note-Physicianon [id number] Note-PhysicianED Note-Physician Basic Information Time Seen: Matthew MILES, Zhane Enriquez 01/23/2024 15:04 Chief Complaint Pt presents to ED with complaints of RUQ pain and fluid retention. Hx of liver fibrosis. History of Present Illness Patient is a 24-whxc-fih-year-old family with a history of bipolar disorder, chronic hepatitis C, liver disease, and smoking who presents to the ED with right upper quadrant abdominal pain that beganthis morning. Patient describes it as a constant [...] appropriate Medical Decision Making Patient is a 5-azsb-hlg-year-old family with a history of bipolar disorder, chronic hepatitis C, liver disease, and smoking who presents to the ED with right upper quadrant abdominal pain that beganthis morning. Abdominal exam is unremarkable without tenderness to palpation. Patient has presentednumerous times with right upper quadrant pain in [...] day(s), # 6 tab(s), Refills(s) 0, Pharmacy: [facility]/pharmacy #[id number], 160, cm, 01/23/24 14:03:00 EDT, Height/Length Dosing, 114.8, kg, 01/23/24 14:03:00 EDT, Weight Dosing calcium carbonate, 500 mg = 1 tab(s), Tab-Chew, Oral, Once, Stop date 01/23/24 18:18:00 EDT, STAT, Start date 01/23/24 18:18:00 EDT, 01/23/24 18:18:00 EDT morphine, 4 mg = 1 mL, Injection, IntraMuscular, Once, Stop date 01/23/24 16:12:00 EDT, STAT, Startdate 01/23/24 16:12:00 EDT, 01/23/24 16:12:00 EDT predniSONE, 50 mg = 1 tab(s), Oral, Daily, X 5 day(s), # 5 tab(s), Refills(s) 0, Pharmacy: [facility]/pharmacy #[id number], 160, cm, 01/23/24 14:03:00 EDT, Height/Length [...] azithromycin 250 mg Tab 5-day Dose Pack (Z-Aydee), 1 packet(s), Oral, As Directed predniSONE 50 mg Tab, 50 mg= 1 tab(s), Oral, Daily Follow-up With When Contact Information Mayra Rosas In 3 da (more content not included)...[facility] HospitalComment on above:Result Comment: Electronically Signed By: Zhane Castro PA-C\.br\Date and Time Signed: 01/22/2418:37 EDT\.br\Electronically Co- Signed By: Balbina Bryant M.D.\.br\Date and Time Co-Signed: 01/23/24 19:50 EDTED Note-PhysicianED Note-Physician Basic Information Time Seen: Zhane Castro [...] Patient seen and evaluated by the physician construction assistant. Attending physician was present in the emergency department and supervised care. This visit was performed by both the physician and an APC. I performed all aspects of the MDM as documented. This report was transcribed using voice recognition software. Every effort was made to ensure accuracy, however, inadvertently computerized bill recapitulation clerk mistakes may be present. Appropriate healthcare PPE [...] fL (01/23/24 14:26:00) MCH: 31.2 pg (01/23/24 14::00) MCHC: 34.3 gm/dL (01/23/24 14::) RDW: 14 % (01/23/24::) Platelet: 329 E9/L (01/23/24::) MPV: 7.9 fL (01/23/24 14::) Neutro Auto: 50.6 % (01/23/24::) Lymph Auto: 33.8 % (01/23/24 14::) [place] Auto: 8.6 % (01/23/24 14::) Eos Auto: 6.4 % (01/23/24::) Basophil Auto: 0.6 % (more content not included)...[facility] HospitalComment on above:Other Comment: Accidental duplicateED Patient Summaryon [id number] Patient SummaryED Patient Summary [place] [address] Patient Discharge Instructions Person Information Name: JERAD TRACY Age: 48 Years Arrival Date: 01/23/2024 13:53:24 Discharge Diagnosis: Abdominal pain, RUQ; Bilateral leg edema; COPD exacerbation Primary Care Physician: Mayra Rincon Provider Information Primary Provider: Balbina Bryant M.D. Advanced Dietetic Intern:Zhane Castro PA-C. The exam and treatment you received in the Emergency Department were for an urgent problem and are not intended as complete care. It is important that you follow up with a doctor, nurse practitioner,or physician???s construction assistant for ongoing care. If your symptoms become worse or you do not improve asexpected and you are unable to reach your usual health care provider, you should return to the Emergency Department. We are available 24 hours a day. JERAD TRACY has been given the following list of patient education materials, prescriptions andfollow-up instructions: Follow-up Instructions: With: Address: When: Mayra Rosas [address] [place] [address], [address], [address] [address] Business (1) In 3 days 01/26/2024 Comments: [...] provider. Patient Education Materials: Abdominal Pain, Adult, Gzxg-nu-Unrk A MESSAGE TO ALL PATIENTS REGARDING OPIOIDS PRESCRIPTION OPIOIDS: WHAT YOU NEED TO KNOW Prescription opioids can be used to help relieve vdjjqwjr-vw-defohn pain and are often prescribed following a [...] or flush them down (more content not included)...[facility] 01-23-2024 Tube Collected PlasmaYesInvalid Interpretation [facility] Comment on above:Performed By: #### [id number] #### [facility] [address] [place] [address] [id number] By: SYSTEM SYSTEM on 61-29-9249Yacaucqnf/100 WBC (Bld)0.6 %Normal0.0 - 2.0 %Remisol HemeBasophils/Leukocytes Auto (Bld) [Pure # fraction]0.0 E9/LNormal0.0 - 0.2 E9/LRemisol HemeEosinophils (Bld) [#/Vol]0.4 E9/LNormal0.0 - 0.5 E9/LRemisol HemeEosinophils/100 WBC (Bld)6.4 %Normal0.0 - 8.0 %Remisol HemeErythrocyte distribution width (RBC) [Ratio]14.0 %Zguuim94.9 - 14.2 %Remisol HemeHematocrit (Bld) [Volume fraction]35.4 %Mkufoh47.0 - 46.0 % Remisol HemeHemoglobin (Bld) [Mass/Vol]12.2 g/kOMatnhj99.0 - 16.0 gm/dLRemisol HemeLymphocytes (Bld) [#/Vol]2.1 E9/LNormal1.0 - 4.0 E9/LRemisol Heme Lymphocytes/100 WBC (Bld)33.8 %Cpiwis42.0 - 50.0 %Remisol HemeMCH (RBC) [Entitic mass]31.2 isUjhkfh76.0 - 34.0 pgRemisol HemeMCHC (RBC) [Mass/Vol]34.3 g/dL Vtoqgz91.4 - 36.0 gm/dLRemisol HemeMCV (RBC) [Entitic vol]90.9 nHPgwwia07.0 - 100.0 fLRemisol HemeMonocytes (Bld) [#/Vol]0.5 E9/LNormal0.2 - 1.0 E9/LRemisol HemeMonocytes/100 WBC (Bld)8.6 %Normal4.0 - 14.0 %Remisol HemeNeutrophils (Bld) [#/Vol]3.1 E9/LNormal2.0 - 7.5 E9/LRemisol HemeNeutrophils/100 WBC (Bld)50.6 % Tgroys13.0 - 75.0 %Remisol FarhGuibeakr633.0 E9/BEtnomg443.0 - 500.0 E9/LRemisol HemePlatelet mean volume (Bld) [Entitic vol]7.9 fLNormal6.4 - 10.8 fLRemisol HemeRBC (Bld) [#/Vol]3.9 E12/LLow4.3 - 5.9 E12/LRemisol HemeWBC corrected for nucl RBC Auto (Bld) [#/Vol]6.2 E9/LNormal4.0 - 11.0 E9/LRemisol HemeHep Func Panelon 08-93-0772Tlretho [Mass/Vol]3.8 g/dLNormal3.3-5.0[facility] HospitalComment on above:Performed By: #### [id number] #### [facility] [address] [place] [address]Uaxmlww/Globulin (S) [Mass conc ratio]1.8Aruzhq6.1-2.2FClermont County HospitalComment on above:Performed By: #### [id number] #### [facility] [address] [place] [address] 33551HUK [Catalytic activity/Vol]87 Int._Unit/RJcuukv10-61BaigosOhiohealth Berger HospitalComment on above:Performed By: #### [id number] #### [facility] [address] [place] [address] 14987GTU No additional P-5'-P [Catalytic activity/Vol]25 Int._Unit/L Normal6-46Ohio[facility] Berger HospitalComment on above:Performed By: #### [id number] #### [facility] [address] [place] [address] 013[address]TRP [Catalytic activity/Vol]28 Int._Unit/LNormal5-43[facility] Berger HospitalComment on above:Performed By: #### [id number] #### [facility] [address] [place] [address]Ermscishv [Mass/Vol]0.3 mg/dLNormal0.0-1.1FClermont County HospitalComment on above:Performed By: #### [id number] #### [facility] [address] [place] [address]Dylrffelo.direct [Mass/Vol]0.0 mg/dLNormal0.0-0.4FClermont County HospitalComment on above:Performed By: #### [id number] #### [facility] [address] [place] [address]Ycwifggrx.indirect [Mass or moles/Vol]0.3 mg/dLNormal0.1-0.9 [facility] HospitalComment on above:Performed By: #### [id number] #### [facility] [address] [place], [place] [address]Qgnzqorf (S) [Mass/Vol]2.7 g/dLNormal1.4-4.0[facility] Berger HospitalComment on above:Performed By: #### [id number] #### [facility] [address] [place], [place] [address]Aetdvcq [Mass/Vol]6.5 g/dLNormal6.0-7.8[facility] Berger HospitalComment on above:Performed By: #### [id number] #### [facility] [address] [place], [place] [address]Wntvlb Levelon 16-32-8823Fuqhij [Catalytic activity/Vol]12 U/L Btr99-62OggniqOhiohealth Berger HospitalComment on above:Performed By: #### [id number] #### [facility] [address] [place] [address] 90[address]Yoyrtqtkqs 10-81-6014Ngfmnzwb HS3.40 pg/mLLow10.10-27.10Ohio[facility] Berger HospitalComment on above:Result Comment: The 95% CI (Confidence Interval) PPV (Positive Predictive Value) for myocardial infarction in females is 38 pg/mL, in males 51 pg/mL. The results should be used in conjunction with clinical conditions of myocardial infarction. (Access High Sensitivity Troponin I Instructions For Use, Katlyn Edson, October 2017)Performed By: #### [id number] #### [facility] [address] [place] [address]MJ with Cult Rflxon 47-52-1445Satshvxyv Ql (U)1+ mg/dLAbnormal NegativeOhiohealth Berger HospitalComment on above:Performed By: #### [id number] #### [facility] [address] [place], [place] [address]Jafrpug (U)ClearNormalClearOhiohealth Berger HospitalComment on above:Performed By: #### [id number] #### [facility] [address] [place] [address] 07804Lipfc (U)YellowNormalYellowOhiohealth Berger HospitalComment on above:Result Comment: Microscopic readings are only performed on those samples that meet specific criteria set forth by [facility].Performed By: #### [id number] #### [facility] [address] [place], [place] [address]Uzyaqwahxv cells.squamous Auto (Urine sed) [#/Area]5-8Invalid Interpretation CodeOhiohealth Berger HospitalComment on above:Performed By: #### [id number] #### [facility] [address] [place], [place] [address]Hruuonq Ql (U)NegativeNormalNegativeOhiohealth Berger Hospital Comment on above:Performed By: #### [id number] #### [facility] [address] [place] [address] 014[address]Kuqjgjmwgk Auto test strip (U) [Mass/Vol]NegativeNormalNegative [facility] HospitalComment on above:Performed By: #### [id number] #### [facility] [address] [place], [place] [address]Ehdscrb Auto test strip Ql (U)1+ mg/dLAbnormalNegKindred Hospital DaytonComment on above:Performed By: #### [id number] #### [facility] [address] [place], [place] [address]Dahvucikn esterase Auto test strip Ql (U)NegativeNormalNegative [facility] HospitalComment on above:Performed By: #### [id number] #### [facility] [address] [place], [place] [address]Ojwxb Auto Ql (U)3+ CD:[id number] Titus Medical CenterComment on above:Performed By: #### [id number] #### [facility] [address] [place] [address]Hfluopa Auto test strip Ql (U)NegativeNormalNegativeOhiohealth Berger HospitalComment on above:Performed By: #### [id number] #### [facility] [address] [place] [address] 96851qD (U)6.0 [pH]Invalid Interpretation Code5.0-9.0[facility] HospitalComment on above:Performed By: #### [id number] #### [facility] [address] [place] [address]Wnynpzm Ql (U)1+ mg/dLAbnormalNegativeOhiohealth Berger HospitalComment on above:Performed By: #### [id number] #### [facility] [address] [place] [address]GXA Ql (U)6-4Aqikqh7-8OkjcpxClermont County HospitalComment on above:Performed By: #### [id number] #### [facility] [address] [place] [address] 44[address]Zmovqqlt gravity (U) [Rel density]1.049Invalid Interpretation Code1.005-1.030Ohio[facility] HospitalComment on above:Performed By: #### [id number] #### [facility] [address] [place] [address]99[address]Qtelqytaueee (U) [Mass/Vol]4 mg/dLAbnormalNegKindred Hospital DaytonComment on above:Performed By: #### [id number] #### [facility] [address] [place] [address]HYS Auto (Urine sed) [#/Area]3-9Jgtgtt1-4FuxrzvClermont County HospitalComment on above:Performed By: #### [id number] #### [facility] [address] [place] [address]Lafq of Urine collection methodClean CatchNormUniversity Hospitals Geauga Medical CenterComment on above:Performed By: #### [id number] #### [facility] [address] [place] [address]FXCVURPMRRBtbgjyt By: SYSTEM SYSTEM on 57-65-3127Dcidlxfdt Ql (U)1+ mg/dLInvalid Interpretation CodeNegativemg/dLFTMC UA Auto SSClarity (U) Clear (01/23/24 3:45 PM)NormalClearFLAWTON [facility] [place] UA Auto SSColor (U)Yellow 1 (01/23/24 3:45 PM)NormalYellowFT UA Auto SSComment on above:Interpretive Data: Microscopic readings are only performed on those samples that meet specific criteria set forth by [facility].Epithelial cells.squamous Auto (Urine sed) [#/Area]5-8 graded/HPFInvalid Interpretation CodeHARPER COUNTY [facility] [place] UA Auto SSGlucose Ql (U)NegativeNormalNegativemg/dLHARPER COUNTY COMM[facility] [place] UA Auto SS Hemoglobin Auto test strip (U) [Mass/Vol]NegativeNormalNegativemg/dLFT UA Auto SSKetones Auto test strip Ql (U)1+ mg/dLInvalid Interpretation Code Negativemg/dLFT UA Auto SSLeukocyte esterase Auto test strip Ql (U)Negative NormalNegativeLeu/uLHARPER COUNTY COMMUNITY [facility]OSP[facility] [place] UA Auto SSMucus Auto Ql (U)3+ graded/LPFInvalid Interpretation CodeNegativegraded/LPFFLAWTON INDIAN [facility]OSP[facility] [place] UA Auto SSNitrite Auto test strip Ql (U)NegativeNormalNegativemg/dLHARPER COUNTY COMMUNITY [facility]OSP[facility] [place] UA Auto SSpH (U)6.0 *NA* (01/23/24 3:45 PM)Invalid Interpretation Code5.0 - 9.0H[facility] [place] UA Auto SSProtein Ql (U)1+ mg/dLInvalid Interpretation CodeNegativemg/dLHARPER COUNTY COMMUNITY [facility]OSP[facility] [place] UA Auto SSRBC Ql (U)0-3 graded/HPFNormal0-3graded/HPFHARPER COUNTY COMMUNITY HOSP[facility] [place] UA Auto SSSpecific gravity (U) [Rel density] 1.049 *NA* (01/23/24 3:45 PM)Invalid Interpretation Code1.005 - 1.030[facility] [place] UA Auto SS Urobilinogen (U) [Mass/Vol]4 mg/dLInvalid Interpretation CodeNegativemg/dLHARPER COUNTY COMMUNITY [facility]OSP[facility] [place] UA Auto SSWBC Auto (Urine sed) [#/Area]0-5 graded/HPFNormal0-5graded/HPFFT UA Auto SSURINALYSISOrdered By: Laurita Salazar on 90-12-3340HF Spec DescClean Catch (01/23/24 3:45 PM)NormalFT UA Auto SSXR Chest Single Viewon [id number] Chest Single ViewExam Date/Time: 01/23/2024 16:03 EDT Reason for Exam: [...] KIERRA Technologist: LAURA Technical Comments Radiation Dose: Kar in mGy = na DAP = naNormalOhiohealth Berger HospitaleGFRon 32-76-9994tAJL82 mL/min/1.73 m2 Normal>=59Ohiohealth Berger HospitalComment on above:Performed By: #### [id number] #### [facility] [address] [place], [place] [id number] Clinical Summaryon [id number] Clinical SummaryED Clinical Summary [address] [address] ED Clinical Summary Person Information Name: JERAD TRACY Tasha/[facility] Age: 48 Years : 1975 Sex: Female Language: Malagasy PCP: Mayra Rincon Marital Status: Visit Id: Visit Reason: [...] 01/14/2024 21:20:44 01/14/2024 21:20:44 01/14/2024 21:20:44 ADDRESS: [address] [place] [id number] PHYS DOC NOTES: MEDICAL INFORMATION: Prescriptions Given: [...] Back Pain Follow up: With: Address: When: May[facility] Rosas [facility] [place] [id number] [facility] (1) In 3 days 01/17/2024 Comments: Call [...] symptoms. DIAGNOSIS: Chronic back pain; Other chronic painNormalFisher Sal Medical CenterED Note-Physicianon [id number] Note-PhysicianED Note-Physician Basic Information Time Seen: Nikhil Tubbs [...] complaint of acute on chronic back pain. Vitalstable, the patient is afebrile. There is no evidence by history or exam of cord compressing lesion. I discussed with the patient that I do not treat chronic pain in the emergency department she willnot be provided a prescription for home. She is instructed continue her home medications. She was given an IM injection of morphine to help with the acute pain. She will follow- up with her neurosurgeon at . Return precautions were discussed. All questions were answered. The patient was dischargedhome. Assessment/Plan Chronic back pain (M54.9: Dorsalgia, unspecified) Other chronic pain (G89.29: Other chronic pain) Orders: morphine, 8 mg = 2 mL, Injection, IntraMuscular, Once, Stop date 01/14/24 20:52:00 EDT, STAT, Startdate 01/14/24 20:52:00 EDT, 01/14/24 20:52:00 EDT Medications Administered Given morphine 4 mg/mL Inj, 8 mg, IntraMuscular Disposition Plan Patient Discharge Condition Stable Discharge Disposition Home Discharge Prescription List Prescriptions No active prescription medications Follow-up With When Contact Information Mayra Rosas In 3 days 01/17/2024 EDT [address] [facility] [address] [place] [id number] Business (1) Additional Instructions: Call the office [...] hepatitis C Closed fr (more content not included)...[facility] HospitalComment on above:Result Comment: Electronically Signed By: Nikhil Tubbs DO\.br\Date and Time Signed: 01/14/24 21:33 EDTED Patient Summaryon [id number] Patient SummaryED Patient Summary [address] [address] Patient Discharge Instructions Person Information Name: JERAD TRACY Age: 48 Years Arrival Date: 01/14/2024 19:13:43 Discharge Diagnosis: Chronic back pain; Other chronic pain Primary Care Physician: Mayra Rincon Provider Information Primary Provider: Nikhil Tubbs DO Advanced Dietetic Intern:None The exam and treatment you received in the Emergency Department were for an urgent problem and are not intended as complete care. It is important that you follow up with a doctor, nurse practitioner,or physician???s construction assistant for ongoing care. If your symptoms become worse or you do not improve asexpected and you are unable to reach your usual health care provider, you should return to the Emergency Department. We are available 24 hours a day. JERAD TRACY has been given the following list of patient education materials, prescriptions andfollow-up instructions: Follow-up Instructions: With: Address: When: Mayra Rosas [address] [facility] A, [place] [id number] Business (1) In 3 days 01/17/2024 Comments: [...] opioids can be used to help relieve zvemvaab-iz-fihufn pain and are often prescribed following a [...] create a plan on (more content not included)...Newark HospitalMR LUMBAR SPINE WO IV CONTRASTon [id number] LUMBAR SPINE WO IV CONTRASTInterpreted By: Bernadette Tapia, STUDY: MR LUMBAR SPINE WO IV CONTRAST; 01/10/2024 8:51 pm INDICATION: Signs/Symptoms:left leg numbness, lower extremity weakness. COMPARISON: MRI of the lumbar spine dated 01/01/2024; 12/18/2023; 10/31/2023;. ACCESSION NUMBER(S): [id number] ORDERING CLINICIAN: GERMAINE BLAIR TECHNIQUE: Sagittal T1, [...] STIR hyperintense edema. There is redemonstration of reud-dt-hxazgpml disc height loss at the level of L4-L5, with intervertebral disc space is preserved at other levels. Lower thoracic spinal cord unremarkable in appearance. Conus medullaris terminates at the level of L1-L2. There is redemonstration of circumferential disc bulge with superimposed left subarticular disc protrusion at the level of L4-L5 which contributes to bfic-mc-zqolxmph spinal canal and mild left-sided neural foraminal [...] at the level of L4-L5, contributing to ksrq-tc-lmzsbchn spinal canal and mild left-sided neural foraminal narrowing and likely abutment/effacement of the traversing left L5 nerve. 2. No new abnormality is identified in the lumbar spine in the interim to recent MRI on 01/01/2024. No new posterior disc contour abnormality or spinal canal stenosis is present. MACRO: None Signed by: Bernadette Tapia 01/10/2024 9:34 PM Dictation workstation: [id number] HealthcareMR Lumbar spine WO contraston . Unchanged circumferential disc bulge with superimposed left subarticular disc herniation at the level of L4-L5, contributing to pfxc-ts-tsutuasj spinal canal and mild left-sided neural foraminal narrowing and likely abutment/effacement of the traversing left L5 nerve. 2. No new abnormality is identified in the lumbar spine in the interim to recent MRI on 01/01/2024. No new posterior disc contour abnormality or spinal canal stenosis is present. MACRO: None Signed by: Bernadette Tapia 01/10/2024 9:34 PM Dictation workstation: [id number] By: Bernadette Tapia, STUDY: MR LUMBAR SPINE WO IV CONTRAST; 01/10/2024 8:51 pm INDICATION: Signs/Symptoms:left leg numbness, lower extremity weakness. COMPARISON: MRI of the lumbar spine dated 01/01/2024; 12/18/2023; 10/31/2023;. ACCESSION NUMBER(S): [id number] ORDERING CLINICIAN: GERMAINE BLAIR TECHNIQUE: Sagittal T1, [...] STIR hyperintense edema. There is redemonstration of xmwq-gh-wswbzayt disc height loss at the level of L4-L5, with intervertebral disc space is preserved at other levels. Lower thoracic spinal cord unremarkable in appearance. Conus medullaris terminates at the level of L1-L2. There is redemonstration of circumferential disc bulge with superimposed left subarticular disc protrusion at the level of L4-L5 which contributes to stkh-ti-cyayypyz spinal canal and mild left-sided neural foraminal [...] new/acute abnormality within the paraspinal musculature. [facility] MMODALBernadette Tapia MD - 01/10/2024 Interpreted By: Bernadette Tapia, STUDY: MR LUMBAR SPINE WO IV CONTRAST; 01/10/2024 8:51 pm INDICATION: Signs/Symptoms:left leg numbness, lower extremity weakness. COMPARISON: MRI of the lumbar spine dated 01/01/2024; 12/18/2023; 10/31/2023;. ACCESSION NUMBER(S): [id number] ORDERING CLINICIAN: GERMAINE BLAIR TECHNIQUE: Sagittal T1, [...] STIR hyperintense edema. There is redemonstration of mlps-dz-bfcebspo disc height loss at the level of L4-L5, with intervertebral disc space is preserved at other levels. Lower thoracic spinal cord unremarkable in appearance. Conus medullaris terminates at the level of L1-L2. There is redemonstration of circumferential disc bulge with superimposed left subarticular disc protrusion at the level of L4-L5 which contributes to rdcq-ez-uulahvia spinal canal and mild left-sided neural foraminal [...] at the level of L4-L5, contributing to ayla-cq-tezylqak spinal canal and mild left-sided neural foraminal narrowing and likely abutment/effacement of the traversing left L5 nerve. 2. No new abnormality is identified in the lumbar spine in the interim to recent MRI on 01/01/2024. No new posterior disc contour abnormality or spinal canal stenosis is present. MACRO: None Signed by: Bernadette Tapia 01/10/2024 9:34 PM Dictation workstation: [id number] [facility] Work Phone: Radiology Study observation (narrative)[facility] Work Phone: MR Lumbar spine WO contrastOrdered By: Bernadette Tapia on 30-90-9948BdyobqxiojWood County Hospital Work Phone: Basic metabolic 2000 panelon 72-04-0786Iudct gap [Moles/Vol]11 mmol/L10 - 20 mmol/[facility] HospitalCalcium [Mass/Vol]8 mg/dLLow8.6 - 10.3 mg/dLUnWood County HospitalChloride [Moles/Vol]98 mmol/L98 - 107 mmol/[facility] HospitalCO2 [Moles/Vol]29 mmol/L21 - 32 mmol/[facility] HospitalCreatinine [Mass/Vol]0.65 mg/dL0.50 - 1.05 mg/dLUnWood County HospitaleGFR- PINF [facility] HospitalComment on above:Calculations of estimated GFR are performed using the 2020 CKD-EPI Study Refit equation without therace variable for the IDMS-Traceable creatinine methods. https://jasn.asnjournals.org/content//ASN.8299375567 Glucose [Mass/Vol]108 mg/dBBaws26 - 99 mg/dLUnWood County Hospital Interpretation and review of laboratory resultsAbnormalUniShelby Memorial HospitalPotassium [Moles/Vol]4.1 mmol/L3.5 - 5.3 mmol/[facility] HospitalSodium [Moles/Vol]134 mmol/WRzg057 - 145 mmol/[facility] HospitalUrea nitrogen [Mass/Vol]17 mg/dL6 - 23 mg/dLUnWood County HospitalUnWood County HospitalAnion gap [Moles/Vol]11 mmol/LNormal 10-20UnBarnesville HospitalComment on above:Performed By: #### 83758-1 #### SANTOSH BAI ([id number]) [facility] ([facility]) [address] [place] [address]Erguwzv [Mass/Vol]8.0 mg/dLLow8.6-10.3UnBarnesville HospitalComment on above:Performed By: #### 82615-4 #### SANTOSH BAI ([id number]) [facility] ([facility]) [address] [place] [address] 28577Lbpmmgld [Moles/Vol]98 mmol/MTqswvt64-969PualmlfbjlBarnesville HospitalComment on above:Performed By: #### 55854-3 #### SANTOSH BAI ([id number]) [facility] ([facility]) [address] [place], [place] [address]OC8 [Moles/Vol]29 mmol/MMmxzop10-94QtmfnyeugxBarnesville HospitalComment on above:Performed By: #### 10367-1 #### SANTOSH BAI ([id number]) [facility] ([facility]) [address] [place], [place] [address]Kigaatizen [Mass/Vol]0.65 mg/dLNormal0.50-1.05[facility]aconess HospitalComment on above:Performed By: #### 47061-0 #### SANTOSH BAI ([id number]) [facility] ([facility]) [address] [place], [place] [address]ATR/1.73 sq M.predicted MDRD (S/P/Bld) [Vol rate/Area] mL/min/{1.73_m2}Normal>60UnBarnesville HospitalComment on above:Result Comment: Calculations of estimated GFR are performed using the 2020 CKD-EPI Study Refit equation without the race variable for the IDMS-Traceable creatinine methods. https://jasn.asnjournals.org/content/early//ASN.6734444593Lqabfcgfj By: #### 21488-7 #### SANTOSH BAI (86513) [facility] ([facility]) [address] [place], [place] [address]Yzzwpik [Mass/Vol]108 mg/uUHfsc17-38HuilbdvsxyBarnesville HospitalComment on above:Performed By: #### 77414-1 #### SANTOSH BAI (82407) [facility] ([facility]) [address] [place], [place] [address]Pqfxyhmwn [Moles/Vol]4.1 mmol/LNormal3.5-5.3[facility]aconess HospitalComment on above:Performed By: #### 92239-7 #### SANTOSH BAI (85266) [facility] ([facility]) [address] [place], [place] [address]Zfyizz [Moles/Vol]134 mmol/XKyg645-110NxvjeocusvBarnesville HospitalComment on above:Performed By: #### 09245-0 #### SANTOSH BAI (44374) [facility] ([facility]) [address] [place], [place] [address]Hfkl nitrogen [Mass/Vol]17 mg/dLNormal6-23UnBarnesville HospitalComment on above:Performed By: #### 47629-0 #### SANTOSH BAI (05249) [facility] ([facility]) [address] [id number] Topon 50-82-2621Aedle TubeHold for add-ons. [facility] HospitalCommclaren northern [place] on above:Auto resulted.[facility] HospitalBasic metabolic 2000 panelon 77-45-9534Exrhk gap [Moles/Vol]10 mmol/L10 - 20 mmol/[facility] HospitalCalcium [Mass/Vol]8.4 mg/dLLow8.6 - 10.3 mg/dLUnWood County HospitalChloride [Moles/Vol]98 mmol/L98 - 107 mmol/[facility] HospitalCO2 [Moles/Vol]31 mmol/L21 - 32 mmol/[facility] HospitalCreatinine [Mass/Vol]0.78 mg/dL0.50 - 1.05 mg/dLUnWood County HospitaleGFR- PINF [facility] HospitalComment on above:Calculations of estimated GFR are performed using the 2020 CKD-EPI Study Refit equation without therace variable for the IDMS-Traceable creatinine methods. https://jasn.asnjournals.org/content/early/ASN.1723209676 Glucose [Mass/Vol]116 mg/gFYecr62 - 99 mg/dLUnWood County Hospital Interpretation and review of laboratory resultsAbnormalUniShelby Memorial HospitalPotassium [Moles/Vol]4.2 mmol/L3.5 - 5.3 mmol/[facility] HospitalSodium [Moles/Vol]135 mmol/OKbt387 - 145 mmol/[facility] HospitalUrea nitrogen [Mass/Vol]15 mg/dL6 - 23 mg/dLUnWood County HospitalUnWood County HospitalAnion gap [Moles/Vol]10 mmol/LNormal -UnBarnesville HospitalComment on above:Performed By: #### 40171-6 #### SANTOSH BAI (40072) [facility] ([facility]) [address] [place], [place] [address]Pfrsfqf [Mass/Vol]8.4 mg/dLLow8.6-10.3[facility]aconess HospitalComment on above:Performed By: #### 78690-3 #### SANTOSH BAI (21851) [facility] ([facility]) [address] [place], [place] [address]Nyhhhvgf [Moles/Vol]98 mmol/IHubhhj86-961OoxqwwqbtqBarnesville HospitalComment on above:Performed By: #### 26865-0 #### SANTOSH BAI ([id number]) [facility] ([facility]) [address] [place], [place] [address]ZQ6 [Moles/Vol]31 mmol/RFsplys26-76RwfrmptfrrBarnesville HospitalComment on above:Performed By: #### 03180-2 #### SANTOSH BAI (56351) [facility] ([facility]) [address] [place], [place] [address]Wrsqrdsdew [Mass/Vol]0.78 mg/dLNormal0.50-1.05UnBarnesville HospitalComment on above:Performed By: #### 48993-4 #### SANTOSH BAI (36974) [facility] ([facility]) [address] [place], [place] [address]MHM/1.73 sq M.predicted MDRD (S/P/Bld) [Vol rate/Area] mL/min/{1.73_m2}Normal>60UnBarnesville HospitalComment on above:Result Comment: Calculations of estimated GFR are performed using the 2020 CKD-EPI Study Refit equation without the race variable for the IDMS-Traceable creatinine methods. https://jasn.asnjournals.org/content//ASN.9286588799Idtzpozvq By: #### 91469-8 #### SANTOSH BAI ([id number]) [facility] ([facility]) [address] [place], [place] [address]Vmtktis [Mass/Vol]116 mg/lQEeoc48-11HaiyoqkxoxBarnesville HospitalComment on above:Performed By: #### 93086-9 #### SANTOSH BAI (51081) [facility] ([facility]) [address] [place], [place] [address]Mpzrktnbw [Moles/Vol]4.2 mmol/LNormal3.5-5.3[facility]acon[facility] HospitalComment on above:Performed By: #### 69851-5 #### SANTOSH BAI (05343) [facility] ([facility]) [address] [place], [place] [address]Abclyy [Moles/Vol]135 mmol/ETxc744-098PvzlofyxvxBarnesville HospitalComment on above:Performed By: #### 83292-2 #### SANTOSH BAI (58315) [facility] ([facility]) [address] [place], [place] [address]Qhal nitrogen [Mass/Vol]15 mg/dLNormal6-23[facility]acon[facility] HospitalComment on above:Performed By: #### 46136-4 #### SANTOSH BAI (22389) [facility] ([facility]) [address] [place], [place] [address]PKU W Auto Differential panel (Bld)on 50-41-4274Zrvftpnbv (Bld) [#/Vol]0.01 10*3/[facility] HospitalBasophils/100 WBC (Bld)0.1 %0.0 - 2.0 %[facility] HospitalEosinophils (Bld) [#/Vol] 0.32 10*3/[facility] HospitalEosinophils/100 WBC (Bld)2.9 %0.0 - 6.0 %[facility] HospitalErythrocyte distribution width (RBC) [Ratio]13.2 %11.5 - 14.5 %[facility] HospitalHematocrit (Bld) [Volume fraction]39.6 %36.0 - 46.0 %[facility] HospitalHemoglobin (Bld) [Mass/Vol]13 g/dL12.0 - 16.0 g/dLJoint Township District Memorial HospitalImchristian hospital granulocytes (Bld) [#/Vol]0.07 10*3/uLUniversity Hospitals of ClevelandImmature granulocytes/100 WBC (Bld)0.6 %0.0 - 0.9 %[facility] Comment on above:Immature Granulocyte Count (IG) includes promyelocytes, myelocytes and metamyelocytes but does not include bands. Percent differential counts (%) should be interpreted in the context of the absolute cell counts (cells/UL).Lymphocytes (Bld) [#/Vol]2.86 10*3/[facility]riners HospitalLymphocytes/100 WBC (Bld)25.8 %13.0 - 44.0 %[facility], Edwin ShawH (RBC) [Entitic mass]30.8 pg26.0 - 34.[address] Joseph Warren HospitalHC (RBC) [Mass/Vol]32.8 g/dL32.0 - 36.0 g/dLSelect Medical Cleveland Clinic Rehabilitation Hospital, Edwin ShawV (RBC) [Entitic vol]94 fL80 - 100 fLUniShelby Memorial HospitalMonocytes (Bld) [#/Vol]0.79 10*3/[facility] Monocytes/100 WBC (Bld)7.1 %2.0 - 10.0 %[facility] Neutrophils (Bld) [#/Vol]7.02 10*3/[facility] HospitalComment on above:Percent differential counts (%) should be interpreted in the context of the absolute cell counts (cells/uL).Neutrophils/100 WBC (Bld)63.5 %40.0 - 80.0 % [facility] HospitalNucleated RBC/100 WBC (Bld) [Ratio]0 % [facility] HospitalPlatelets (Bld) [#/Vol]301 10*3/[facility] HospitalRBC (Bld) [#/Vol]4.22 10*6/[facility] HospitalWBC (Bld) [#/Vol]11.1 10*3/[facility] HospitalBasophils (Bld) [#/Vol]0.01 x10*3/uLNormal 0.00-0.10[facility]acon[facility] HospitalComment on above:Performed By: #### 61919-4 #### SANTOSH BAI (39507) [facility] ([facility]) [address] [place], [place] [address]Ygjlqxsqa/100 WBC (Bld)0.1 %Normal0.0-2.0UnBarnesville HospitalComment on above:Performed By: #### 92048-4 #### SANTOSH BAI (08355) [facility] ([facility]) [address] [place], [place] [address]Jfzjjvgnvfa (Bld) [#/Vol]0.32 x10*3/uLNormal0.00-0.70 [facility] HospitalComment on above:Performed By: #### 84008-7 #### SANTOSH BAI (42429) [facility] ([facility]) [address] [place], [place] [address]Hhcuuxiprni/100 WBC (Bld)2.9 %Normal0.0-6.0UnBarnesville HospitalComment on above:Performed By: #### 52428-6 #### SANTOSH BAI (34290) [facility] ([facility]) [address] [place], [place] [address]Jaqyfoilaea distribution width (RBC) [Ratio]13.2 %Normal 11.5-14.5UnBarnesville HospitalComment on above:Performed By: #### 28581-0 #### SANTOSH BAI (64943) [facility] ([facility]) [address] [place], [place] [address]Vvomzyaqcz (Bld) [Volume fraction]39.6 %Hzrhsk48.0-46.0 [facility] HospitalComment on above:Performed By: #### 04222-8 #### SANTOSH BAI (93339) [facility] ([facility]) [address] [place], [place] [address]Buxehvjilp (Bld) [Mass/Vol]13.0 g/cMRkczew75.0-16.0UnBarnesville HospitalComment on above:Performed By: #### 78392-3 #### SANTOSH BAI (80465) [facility] ([facility]) [address] [place], [place] [address]Qifkkszu granulocytes (Bld) [#/Vol]0.07 x10*3/uLNormal 0.00-0.70UnBarnesville HospitalComment on above:Performed By: #### 77350-1 #### SANTOSH BAI (79931) [facility] ([facility]) [address] [place], [place] [address]Lpfecweo granulocytes/100 WBC (Bld)0.6 %Normal0.0-0.9 [facility] HospitalComment on above:Result Comment: Immature Granulocyte Count (IG) includes promyelocytes, myelocytes and metamyelocytes but does not include bands. Percent differential counts (%) should be interpreted in the context of the absolute cell counts (cells/UL). Performed By: #### 33979-1 #### SANTOSH BAI (74747) [facility] ([facility]) [address] [place], [place] [address]Uuqanzhnevf (Bld) [#/Vol]2.86 x10*3/uLNormal1.20-4.80 [facility] HospitalComment on above:Performed By: #### 27576-8 #### SANTOSH BAI (09357) [facility] ([facility]) [address] [place], [place] [address]Bwyryqswypo/100 WBC (Bld)25.8 %Fcgxde41.0-44.0UnBarnesville HospitalComment on above:Performed By: #### 05443-4 #### SANTOSH BAI (78125) [facility] ([facility]) [address] [place] [id number] (RBC) [Entitic mass]30.8 qdZxdeao08.0-34.0UnBarnesville HospitalComment on above:Performed By: #### 61829-0 #### SANTOSH BAI (49426) [facility] ([facility]) [address] [place] [id number] (RBC) [Mass/Vol]32.8 g/hTMiuzgj78.0-36.0UnBarnesville HospitalComment on above:Performed By: #### 46027-3 #### SANTOSH BAI (37028) [facility] ([facility]) [address] [place], [place] [address]UAZ (RBC) [Entitic vol]94 zMWyzckm05-830NpmhrdcdyxBarnesville HospitalComment on above:Performed By: #### 58403-5 #### SANTOSH BAI (34649) [facility] ([facility]) [address] [place], [place] [address]Fxtdkrvgf (Bld) [#/Vol]0.79 x10*3/uLNormal0.10-1.00UnBarnesville HospitalComment on above:Performed By: #### 02587-5 #### SANTOSH BAI (78634) [facility] ([facility]) [address] [place], [place] [address]Zrhmrynej/100 WBC (Bld)7.1 %Normal2.0-10.0UnBarnesville HospitalComment on above:Performed By: #### 94686-2 #### SANTOSH BAI (51515) [facility] ([facility]) [address] [place], [place] [address]Btonyfcihlt (Bld) [#/Vol]7.02 x10*3/uLNormal1.20-7.70 [facility] HospitalComment on above:Result Comment: Percent differential counts (%) should be interpreted in the context of the absolute cell counts (cells/uL).Performed By: #### 20152-3 #### SANTOSH BAI (18579) [facility] ([facility]) [address] [place], [place] [address]Lkmrwdvvbvb/100 WBC (Bld)63.5 %Ntajqb32.0-80.0UnBarnesville HospitalComment on above:Performed By: #### 69636-9 #### SANTOSH BAI (55407) [facility] ([facility]) [address] [place], [place] [address]Ckjbmabyj RBC/100 WBC (Bld) [Ratio]0.0 /100 WBCsNormal0.0-0.0 [facility] HospitalComment on above:Performed By: #### 91238-4 #### SANTOSH BAI (67076) [facility] ([facility]) [address] [place], [place] [address]Hoznyrcch (Bld) [#/Vol]301 x10*3/mWWavfyb310-538BgxttywrweProtestant Deaconess HospitalComment on above:Performed By: #### 08261-1 #### SANTOSH BAI (43323) [facility] ([facility]) [address] [place], [place] [address]KAT (Bld) [#/Vol]4.22 x10*6/uLNormal4.00-5.20[facility] HospitalComment on above:Performed By: #### 67682-8 #### SANTOSH BAI (85550) [facility] ([facility]) [address] [place] [address]IAK (Bld) [#/Vol]11.1 x10*3/uLNormal4.4-11.3[facility] HospitalComment on above:Performed By: #### 42643-0 #### SANTOSH BAI (06784) [facility] ([facility]) [facility] [place], [place] [address]Jvjbca Summaryon 44-63-1346Csmnyt SummaryMLBase 64 MxoxaudqGXm0uOg+PGhlYWQ+MC8JXCSkG95seSXuaV1jA2ZIHEaFRymgQUTQVDpILuMvscUlUU8zvLGx ZXJu [file] LWN (more content not included)...[facility] HospitalED Note-Physicianon 80-30-6030RP Note-PhysicianED Note-Physician Basic Information Time Seen: Robert Taylor PA-C 01/06/2024 11:42 Chief Complaint Pt presents to [...] ambulate. No abdominal pain. No bladder or boweldysfunction. No fever or chills. Secondly she is complaining of a sore throat. She has a foreign body sensation in her throat. That is been ongoing for the last few days. She awoke with the symptoms.Wonders if she inhaled something while she was [...] Once, Stop date 01/06/24 12:13:00 EDT, STAT, Startdate 01/06/24 12:13:00 EDT, 01/06/24 12:13:00 EDT ondansetron, [...] prescription medications Follow-up With When Contact Information Mayra Rosas In 3 days 01/09/2024 EDT [address], [address] [facility] (1) Additional Instructions: Patient Education Lumbosacral Radiculopathy [...] made to ensure accuracy, however, inadvertently computerized bill recapitulation clerk mistakes may be present. Appropriate healthcare PPE [...] Migraines Procedure/Surgical History Hysterecto (more content not included)...[facility] Comment on above:Result Comment: Electronically Signed By: Robert Taylor PA-C\.br\Date and Time Signed: 01/05/2413:52 EDT\.br\Electronically Co-Signed By: Jorge Mcintosh DO\.br\Date and Time Co-Signed: 01/07/24 08:31 EDTCBC W Auto Differential panel (Bld)on 10-43-0063Ojzupaqwo (Bld) [#/Vol]0.02 10*3/uL [facility] HospitalBasophils/100 WBC (Bld)0.2 %0.0 - 2.0 % [facility] HospitalEosinophils (Bld) [#/Vol]0.32 10*3/uLUnWood County HospitalEosinophils/100 WBC (Bld)2.6 %0.0 - 6.0 %[facility] HospitalErythrocyte distribution width (RBC) [Ratio]13.2 %11.5 - 14.5 %[facility] HospitalHematocrit (Bld) [Volume fraction]41.3 % 36.0 - 46.0 %[facility] HospitalHemoglobin (Bld) [Mass/Vol]13.6 g/dL12.0 - 16.0 g/dLUnWood County HospitalImmamount st. mary hospital granulocytes (Bld) [#/Vol]0.08 10*3/uLJoint Township District Memorial HospitalImchristian hospital granulocytes/100 WBC (Bld)0.6 %0.0 - 0.9 %[facility] HospitalComment on above: Immature Granulocyte Count (IG) includes promyelocytes, myelocytes and metamyelocytes but does not include bands. Percent differential counts (%) should be interpreted in the context of the absolute cell counts (cells/UL). Interpretation and review of laboratory resultsAbnormalUniShelby Memorial HospitalLymphocytes (Bld) [#/Vol]3.09 10*3/[facility] Lymphocytes/100 WBC (Bld)25.1 %13.0 - 44.0 %[facility] HospitalMCH (RBC) [Entitic mass]30.6 pg26.0 - 34.0 pgUntexas children's hospital the [facility] Hospitals of ClevelandMCHC (RBC) [Mass/Vol]32.9 g/dL32.0 - 36.0 g/dLSelect Medical Cleveland Clinic Rehabilitation Hospital, Edwin ShawV (RBC) [Entitic vol]93 fL80 - 100 fLUniShelby Memorial HospitalMonocytes (Bld) [#/Vol]0.88 10*3/[facility] HospitalMonocytes/100 WBC (Bld)7.1 %2.0 - 10.0 %[facility] HospitalNeutrophils (Bld) [#/Vol] 7.93 10*3/[facility] HospitalComment on above:Percent differential counts (%) should be interpreted in the context of the absolute cell counts (cells/uL).Neutrophils/100 WBC (Bld)64.4 %40.0 - 80.0 %[facility] HospitalNucleated RBC/100 WBC (Bld) [Ratio]0 %[facility] HospitalPlatelets (Bld) [#/Vol]339 10*3/[facility] RBC (Bld) [#/Vol]4.45 10*6/[facility] HospitalWBC (Bld) [#/Vol] 12.3 10*3/[facility] HospitalUnWood County HospitalBasophils (Bld) [#/Vol]0.02 x10*3/uLNormal0.00-0.10Protestant Deaconess HospitalComment on above:Performed By: #### [id number] #### SANTOSH BAI ([id number]) [facility] ([facility] [place]) [address] [place], [place] [address]Watdkftem/100 WBC (Bld)0.2 %Normal0.0-2.0UnBarnesville HospitalComment on above:Performed By: ##Rhett# [id number] #### SANTOSH BAI ([id number]) [facility] ([facility] [address] [place] [address]Ujfujznguks (Bld) [#/Vol]0.32 x10*3/uLNormal0.00-0.70 [facility] HospitalComment on above:Performed By: #### 90199-7 #### SANTOSH BAI ([id number]) [facility] ([facility]) [address] [place], [place] [address]Navxpxsgvky/100 WBC (Bld)2.6 %Normal0.0-6.0[facility]acon[facility] HospitalComment on above:Performed By: #### 84781-3 #### SANTOSH BAI ([id number]) [facility] ([facility]) [address] [place], [place] [address]Jwfxidwyqzt distribution width (RBC) [Ratio]13.2 %Normal 11.5-14.5UnBarnesville HospitalComment on above:Performed By: #### 72690-1 #### SANTOSH BAI ([id number]) [facility] ([facility]) [address] [place], [place] [address]Sfpzjbajgk (Bld) [Volume fraction]41.3 %Yltdiv76.0-46.0 [facility] HospitalComment on above:Performed By: #### 62789-4 #### SANTOSH BAI ([id number]) [facility] ([facility]) [address] [place], [place] [address]Aoitmgrtkj (Bld) [Mass/Vol]13.6 g/yUYxtvcf91.0-16.0[facility] HospitalComment on above:Performed By: #### 86009-7 #### SANTOSH BAI ([id number]) [facility] ([facility]) [address] [place], [place] [address]Qvxdteha granulocytes (Bld) [#/Vol]0.08 x10*3/uLNormal 0.00-0.70UnBarnesville HospitalComment on above:Performed By: #### 80623-8 #### SANTOSH BAI ([id number]) [facility] ([facility]) [address] [place], [place] [address]Yeliqice granulocytes/100 WBC (Bld)0.6 %Normal0.0-0.9 [facility] HospitalComment on above:Result Comment: Immature Granulocyte Count (IG) includes promyelocytes, myelocytes and metamyelocytes but does not include bands. Percent differential counts (%) should be interpreted in the context of the absolute cell counts (cells/UL). Performed By: #### 80519-3 #### SANTOSH BAI ([id number]) [facility] ([facility]) [address] [place], [place] [address]Zuvravuofcx (Bld) [#/Vol]3.09 x10*3/uLNormal1.20-4.80 [facility] HospitalComment on above:Performed By: #### 61934-2 #### SANTOSH BAI (62895) [facility] ([facility]) [address] [place], [place] [address]Bmyvoxddgul/100 WBC (Bld)25.1 %Yvubsr14.0-44.0UnBarnesville HospitalComment on above:Performed By: #### 81168-8 #### SANTOSH BAI ([id number]) [facility] ([facility]) [address] [place], [place] [address]TJL (RBC) [Entitic mass]30.6 ubJbvubb78.0-34.0UnBarnesville HospitalComment on above:Performed By: #### 46467-9 #### SANTOSH BAI (90460) [facility] ([facility]) [address] [place], [place] [address]JNJH (RBC) [Mass/Vol]32.9 g/hYOghzrp28.0-36.0UnBarnesville HospitalComment on above:Performed By: #### 34755-8 #### SANTOSH BAI (48713) [facility] ([facility]) [address] [place], [place] [address]RBX (RBC) [Entitic vol]93 tLBkyvsh06-413RbhbysxvnfProtestant Deaconess HospitalComment on above:Performed By: #### 50883-8 #### SANTOSH BAI ([id number]) [facility] ([facility]) [address] [place], [place] [address]Ttagsjagl (Bld) [#/Vol]0.88 x10*3/uLNormal0.10-1.00[facility] HospitalComment on above:Performed By: #### 63831-0 #### SANTOSH BAI ([id number]) [facility] ([facility]) [address] [place], [place] [address]Fanoylkry/100 WBC (Bld)7.1 %Normal2.0-10.0[facility] HospitalComment on above:Performed By: #### 87815-3 #### SANTOSH BAI ([id number]) [facility] ([facility]) [address] [place], [place] [address]Npbxdohqghx (Bld) [#/Vol]7.93 x10*3/uLHigh1.20-7.70UnBarnesville HospitalComment on above:Result Comment: Percent differential counts (%) should be interpreted in the context of the absolute cell counts (cells/uL).Performed By: #### 80761-9 #### SANTOSH BAI (51543) [facility] ([facility]) [address] [place], [place] [address]Xqxtpmohhpp/100 WBC (Bld)64.4 %Pikzfw26.0-80.0[facility] HospitalComment on above:Performed By: #### 19896-3 #### SANTOSH BAI (46389) [facility] ([facility]) [address] [place], [place] [address]Pomideqpu RBC/100 WBC (Bld) [Ratio]0.0 /100 WBCsNormal0.0-0.0 [facility] HospitalComment on above:Performed By: #### 10322-3 #### SANTOSH BAI (25259) [facility] ([facility]) [address] [place], [place] [address]Tyvuzsiqp (Bld) [#/Vol]339 x10*3/kEVfojtf753-538KgzglawzjdBarnesville HospitalComment on above:Performed By: #### 87070-0 #### SANTOSH BAI (54259) [facility] ([facility]) [address] [place], [place] [address]FEC (Bld) [#/Vol]4.45 x10*6/uLNormal4.00-5.20UnBarnesville HospitalComment on above:Performed By: #### 19008-5 #### SANTOSH BAI (68432) [facility] ([facility]) [address] [place], [place] [address]ISC (Bld) [#/Vol]12.3 x10*3/uLHigh4.4-11.3UnBarnesville HospitalComment on above:Performed By: #### 14267-8 #### SANTOSH BAI (28092) [facility] ([facility]) [address] [place], [place] [address]Gvdmhmedgzemw metabolic 2000 panelon 66-48-1389Wuptujg BCP dye [Mass/Vol]3.7 g/dL3.4 - 5.0 g/dLUnWood County HospitalALP [Catalytic activity/Vol]94 U/L33 - 110 U/[facility] HospitalALT With P-5'-P [Catalytic activity/Vol]14 U/L7 - 45 U/[place] on above:Patients treated with Sulfasalazine may generate falsely decreased results for ALT.Anion gap [Moles/Vol]10 mmol/L10 - 20 mmol/L [facility] HospitalAST With P-5'-P [Catalytic activity/Vol]17 U/L9 - 39 U/[place] on above:MILD HEMOLYSIS DETECTED. The result may be falsely elevated due to hemolysis or other interferents.Clinical correlation is recommended. Repeat testing may be considered.Bilirubin [Mass/Vol]0.2 mg/dL0.0 - 1.2 mg/dLUnWood County HospitalCalcium [Mass/Vol]7.9 mg/dLLow8.6 - 10.3 mg/dLUnWood County HospitalChloride [Moles/Vol]98 mmol/L98 - 107 mmol/[facility] HospitalCO2 [Moles/Vol]31 mmol/L21 - 32 mmol/[facility] Creatinine [Mass/Vol]0.78 mg/dL0.50 - 1.05 mg/dLUnWood County HospitaleGUniversity Hospitals Parma [facility] on above: Calculations of estimated GFR are performed using the 2020 CKD-EPI Study Refit equation without therace variable for the IDMS-Traceable creatinine methods. https://jasn.asnjournals.org/content//ASN.2768075055 Glucose [Mass/Vol]124 mg/pJPxem67 - 99 mg/dLUnWood County Hospital Interpretation and review of laboratory resultsAbnormalUBluffton HospitalPotassium [Moles/Vol]3.8 mmol/L3.5 - 5.3 mmol/[place] on above:MILD HEMOLYSIS DETECTED. The result may be falsely elevated due to hemolysis or other interferents.Clinical correlation is recommended. Repeat testing may be considered.Protein [Mass/Vol]6.6 g/dL6.4 - 8.2 g/dLUnWood County HospitalSodium [Moles/Vol]135 mmol/MXlf405 - 145 mmol/[facility] HospitalUrea nitrogen [Mass/Vol]17 mg/dL6 - 23 mg/dLUnWood County HospitalUnWood County Hospital Albumin BCP dye [Mass/Vol]3.7 g/dLNormal3.4-5.0UnBarnesville HospitalComment on above:Performed By: #### 99897-9 #### SANTOSH BAI ([id number]) [facility] ([facility]) [address] [place], [place] [address]RZZ [Catalytic activity/Vol]94 U/MJsyjgs47-362PylmftlfnmBarnesville HospitalComment on above:Performed By: #### 09288-4 #### SANTOSH BAI (85818) [facility] ([facility]) [address] [place], [place] [address]HPI With P-5'-P [Catalytic activity/Vol]14 U/LNormal7-45 [facility] HospitalComment on above:Result Comment: Patients treated with Sulfasalazine may generate falsely decreased results for ALT.Performed By: #### 12563-1 #### SANTOSH BAI (19061) [facility] ([facility]) [address] [place], [place] [address]Zgujv gap [Moles/Vol]10 mmol/XVwgwus76-35TrielhtezvProtestant Deaconess HospitalComment on above:Performed By: #### 41368-0 #### SANTOSH BAI (88963) [facility] ([facility]) [address] [place], [place] [address]YKQ With P-5'-P [Catalytic activity/Vol]17 U/LNormal9-39 [facility] HospitalComment on above:Result Comment: MILD HEMOLYSIS DETECTED. The result may be falsely elevated due to hemolysis or other interferents. Clinical correlation is recommended. Repeat testing may be considered.Performed By: #### 60864-3 #### SANTOSH BAI (06431) [facility] ([facility]) [address] [place], [place] [address]Sxlvyqjwi [Mass/Vol]0.2 mg/dLNormal0.0-1.2[facility] HospitalComment on above:Performed By: #### 17721-4 #### SANTOSH BAI (00145) [facility] ([facility]) [address] [place], [place] [address]Uxifone [Mass/Vol]7.9 mg/dLLow8.6-10.3[facility] HospitalComment on above:Performed By: #### 15759-8 #### SANTOSH BAI (69220) [facility] ([facility]) [address] [place], [place] [address]Eucvvgcw [Moles/Vol]98 mmol/KTmtguk22-385FzakgnfelcBarnesville HospitalComment on above:Performed By: #### 20099-7 #### SANTOSH BAI (83593) [facility] ([facility]) [address] [place], [place] [address]RL5 [Moles/Vol]31 mmol/AUbgiyj75-81DcsgykhixoProtestant Deaconess HospitalComment on above:Performed By: #### 55886-6 #### SANTOSH BAI (89428) [facility] ([facility]) [address] [place], [place] [address]Qmonvnmvoh [Mass/Vol]0.78 mg/dLNormal0.50-1.05UnBarnesville HospitalComment on above:Performed By: #### 33213-0 #### SANTOSH BAI (94896) [facility] ([facility]) [address] [place], [place] [address]CTD/1.73 sq M.predicted MDRD (S/P/Bld) [Vol rate/Area] mL/min/{1.73_m2}Normal>60UnBarnesville HospitalComment on above:Result Comment: Calculations of estimated GFR are performed using the 2020 CKD-EPI Study Refit equation without the race variable for the IDMS-Traceable creatinine methods. https://jasn.asnjournals.org/content/early//ASN.3772128913Ijuukptpj By: #### 27572-4 #### SANTOSH BAI (04733) [facility] ([facility]) [address] [place], [place] [address]Horkshy [Mass/Vol]124 mg/vMIimc65-04HqriefmqxpBarnesville HospitalComment on above:Performed By: #### 94851-3 #### SANTOSH BAI (60411) [facility] ([facility]) [address] [place], [place] [address]Htzxecvym [Moles/Vol]3.8 mmol/LNormal3.5-5.3UnBarnesville HospitalComment on above:Result Comment: MILD HEMOLYSIS DETECTED. The result may be falsely elevated due to hemolysis or other interferents. Clinical correlation is recommended. Repeat testing may be considered.Performed By: #### 62592-7 #### SANTOSH BAI (25466) [facility] ([facility]) [address] [place], [place] [address]Wmhfthk [Mass/Vol]6.6 g/dLNormal6.4-8.2UnBarnesville HospitalComment on above:Performed By: #### 80459-5 #### SANTOSH BAI (70649) [facility] ([facility]) [address] [place], [place] [address]Jjsbgi [Moles/Vol]135 mmol/FCxf984-982MsijxjcdakBarnesville HospitalComment on above:Performed By: #### 65685-1 #### SANTOSH BAI (24301) [facility] ([facility]) [address] [place], [place] [address]Hktu nitrogen [Mass/Vol]17 mg/dLNormal6-23Pro[facility]acon[facility] HospitalComment on above:Performed By: #### 70426-8 #### SANTOSH BAI ([id number]) [facility] ([facility]) [address] [place], [place] [address]ED Clinical Summaryon [id number] Clinical SummaryED Clinical Summary [place] [id number] ED Clinical Summary Person Information Name: JERAD TRACY Tasha/[facility] Age: 48 Years : 1975 Sex: Female Language: Malagasy PCP: Mayra Rincon Marital Status: Visit Id: Visit Reason: [...] 01/06/2024 13:12:35 01/06/2024 13:12:35 01/06/2024 13:12:35 ADDRESS: [address] [place] [id number] [facility] DOC NOTES: MEDICAL INFORMATION: Prescriptions Given: Medications [...] Lumbosacral Radiculopathy Follow up: With: Address: When: Mayra Rosas [address], [address], [place] [id number] Business (1) In 3 days 01/09/2024 DIAGNOSIS: Lumbar radiculopathy; PharyngitisNormalPrem[facility] Patient Summaryon [id number] Patient SummaryED Patient Summary [address] [address] Patient Discharge Instructions Person Information Name: JERAD TRACY Age: 48 Years Arrival Date: 01/06/2024 11:35:28 Discharge Diagnosis: Lumbar radiculopathy; Pharyngitis Primary Care Physician: Mayra Rincon Provider Information Primary Provider: Jorge Mcintosh DO Advanced Dietetic Intern:Robert Taylor PA-C The exam and treatment you received in the Emergency Department were for an urgent problem and are not intended as complete care. It is important that you follow up with a doctor, nurse practitioner,or physician?s construction assistant for ongoing care. If your symptoms become worse or you do not improve as expected and you are unable to reach your usual health care provider, you should return to the Emergency Department. We are available 24 hours a day. JERAD TRACY has been given the following list of patient education materials, prescriptions andfollow-up instructions: Follow-up Instructions: With: Address: When: Mayra Rosas [address], [address], [address] [address] Business (1) In 3 days 01/09/2024 In the event that this physician does not participate in your insurance network, please consult with your insurance company to find a nearby participating provider. Patient Education Materials: Lumbosacral Radiculopathy A MESSAGE TO ALL PATIENTS REGARDING OPIOIDS PRESCRIPTION OPIOIDS: WHAT YOU NEED TO KNOW Prescription opioids can be used to help relieve skzxliog-pb-hvecyp pain and are often prescribed following a [...] and have fewer risks and side effects. Optionsmay include: ? Pain relievers such as acetaminophen, [...] unused prescription opioids: Find your community drug take- back program or [employer] mail-back program, or flush them down the toilet, following guidance from the Food and Drug Administration (www.fda.gov/Drugs/ResourcesForYou). ? Visit www.cdc.gov/drugoverdose to learn about the risks of opioids abuse and overdose. ? If you believe you may be struggling with addiction, tell your health childcare aide and ask for guidance or call [facility] (more content not included)... [facility]XR Neck Soft Tissueon [id number] Neck Soft TissueExam Date/Time: 01/06/2024 12:46 EDT Reason for Exam: [...] KIERRA Technologist: CAMILLE Technical Comments Radiation Dose: juan Tate in mGy = na DAP = naNormalFisher R Adams Cowley Shock Trauma CenterBasic metabolic 2000 panelon 01-04-2024 Anion gap [Moles/Vol]13 mmol/L10 - 20 mmol/[facility] Calcium [Mass/Vol]8.3 mg/dLLow8.6 - 10.3 mg/dLJoint [facility] District Memorial Hospital Chloride [Moles/Vol]101 mmol/L98 - 107 mmol/[facility] CO2 [Moles/Vol]25 mmol/L21 - 32 mmol/[facility] Creatinine [Mass/Vol]0.62 mg/dL0.50 - 1.05 mg/dLUnWood County HospitaleGFR- PINFUniShelby Memorial HospitalComment on above: Calculations of estimated GFR are performed using the 2020 CKD-EPI Study Refit equation without therace variable for the IDMS-Traceable creatinine methods. https://jasn.asnjournals.org/content//ASN.6315682659 Glucose [Mass/Vol]187 mg/jHTrdi00 - 99 mg/dLUnWood County Hospital Interpretation and review of laboratory resultsAbnormalUBluffton HospitalPotassium [Moles/Vol]4.2 mmol/L3.5 - 5.3 mmol/[facility] HospitalSodium [Moles/Vol]135 mmol/TEoq931 - 145 mmol/[facility] HospitalUrea nitrogen [Mass/Vol]15 mg/dL6 - 23 mg/dLUnWood County HospitalUnWood County HospitalAnion gap [Moles/Vol]13 mmol/LNormal 10-20UnBarnesville HospitalComment on above:Performed By: #### 55866-6 #### SANTOSH BAI ([id number]) [facility] ([facility]) [address] [place] [address]Vxfpmmq [Mass/Vol]8.3 mg/dLLow8.6-10.3UnBarnesville HospitalComment on above:Performed By: #### 03786-9 #### SANTOSH BAI (76258) [facility] ([facility]) [address] [place], [place] [address]Qyparzpe [Moles/Vol]101 mmol/LBjgzxj89-767DsgilaldcgBarnesville HospitalComment on above:Performed By: #### 79790-8 #### SANTOSH BAI (26102) [facility] ([facility]) [address] [place], [place] [address]SF0 [Moles/Vol]25 mmol/XEvsypi18-38IosmjlwljtProtestant Deaconess HospitalComment on above:Performed By: #### 70973-6 #### SANTOSH BAI (47732) [facility] ([facility]) [address] [place] [address]Jkycbzglnz [Mass/Vol]0.62 mg/dLNormal0.50-1.05UnBarnesville HospitalComment on above:Performed By: #### 22959-6 #### SANTOSH BAI (44126) [facility] ([facility]) [address] [place] [address]MGV/1.73 sq M.predicted MDRD (S/P/Bld) [Vol rate/Area] mL/min/{1.73_m2}Normal>60UnBarnesville HospitalComment on above:Result Comment: Calculations of estimated GFR are performed using the 2020 CKD-EPI Study Refit equation without the race variable for the IDMS-Traceable creatinine methods. https://jasn.asnjournals.org/content//ASN.2283925175Pydpwbpdr By: #### 63950-7 #### SANTOSH BAI (09673) [facility] ([facility]) [address] [place], [place] [address]Pnmcfzb [Mass/Vol]187 mg/cGYbut84-76FywostvfajBarnesville HospitalComment on above:Performed By: #### 94651-4 #### SANTOSH BAI (20205) [facility] ([facility]) [address] [place], [place] [address]Lxwqggqdg [Moles/Vol]4.2 mmol/LNormal3.5-5.3[facility]acon[facility] HospitalComment on above:Performed By: #### 00685-6 #### SANTOSH BAI (10273) [facility] ([facility]) [address] [place], [place] [address]Nbpvzx [Moles/Vol]135 mmol/DOnl265-026WrqdfxkchjProtestant Deaconess HospitalComment on above:Performed By: #### 23625-4 #### SANTOSH BAI (07727) [facility] ([facility]) [address] [place], [place] [address]Kbjs nitrogen [Mass/Vol]15 mg/dLNormal6-23UnBarnesville HospitalComment on above:Performed By: #### 84705-4 #### SANTOSH BAI ([id number]) [facility] ([facility]) [address] [place], [place] [address]OBS panel Auto (Bld)on [id number] distribution width (RBC) [Ratio]13.2 %11.5 - 14.5 %[facility] Hematocrit (Bld) [Volume fraction]41.9 %36.0 - 46.0 %[facility] Memorial HospitalHemoglobin (Bld) [Mass/Vol]13.3 g/dL12.0 - 16.0 g/dLUnWood County HospitalInterpretation and review of laboratory resultsAbnoParkview Health Bryan HospitalH (RBC) [Entitic mass]30.4 pg26.0 - 34.0 pg [facility] HospitalMCHC (RBC) [Mass/Vol]31.7 g/dLLow32.0 - 36.0 g/dLUnWood County HospitalMCV (RBC) [Entitic vol]96 fL80 - 100 fL [facility] HospitalNucleated RBC/100 WBC (Bld) [Ratio]0.0 % [facility] Memorial HospitalPlatelets (Bld) [#/Vol]320 10*3/[facility]riners HospitalRBC (Bld) [#/Vol]4.38 10*6/[facility]riners HospitalWBC (Bld) [#/Vol]12.2 10*3/[facility]sburg HospitalErythrocyte distribution width (RBC) [Ratio] 13.2 %Aknnwl43.5-14.5[facility] William Medical CenterComment on above: Performed By: #### 11738-9 #### SANTOSH BAI (66499) [facility] ([facility]) [address] [place], [place] [address]Olrpobgtrp (Bld) [Volume fraction]41.9 %Ktwdyl35.0-46.0 [facility] HospitalComment on above:Performed By: #### 22610-4 #### SANTOSH BAI (74291) [facility] ([facility]) [address] [place], [place] [address]Lyjinmxksc (Bld) [Mass/Vol]13.3 g/kXOrtfak61.0-16.0[facility] HospitalComment on above:Performed By: #### 92075-9 #### SANTOSH BAI (06813) [facility] ([facility]) [address] [place], [place] [address]BHS (RBC) [Entitic mass]30.4 dlExwquh74.0-34.0UnBarnesville HospitalComment on above:Performed By: #### 01362-4 #### SANTOSH BAI (54665) [facility] ([facility]) [address] [place], [place] [address]NRYV (RBC) [Mass/Vol]31.7 g/dLLow32.0-36.0UnBarnesville HospitalComment on above:Performed By: #### 44020-3 #### SANTOSH BAI (72269) [facility] ([facility]) [address] [place], [place] [address]JEZ (RBC) [Entitic vol]96 uJHinaxm99-808SfjpqchatcBarnesville HospitalComment on above:Performed By: #### 24427-8 #### SANTOSH BAI (17611) [facility] ([facility]) [address] [place], [place] [address]Moywwqbtz RBC/100 WBC (Bld) [Ratio]0.0 /100 WBCsNormal0.0-0.0 [facility] HospitalComment on above:Performed By: #### 09377-3 #### SANTOSH BAI (03460) [facility] ([facility]) [address] [place], [place] [address]Lldkkufxx (Bld) [#/Vol]320 x10*3/pTHhokaq586-539WyumtfxxfiBarnesville HospitalComment on above:Performed By: #### 56465-1 #### SANTOSH BAI ([id number]) [facility] ([facility] [place] [address] [place], [place] [address]LVF (Bld) [#/Vol]4.38 x10*6/uLNormal4.00-5.20UnBarnesville HospitalComment on above:Performed By: #### [id number] #### SANTOSH BAI ([id number]) [facility] ([facility]) [address] [place], [place] [address]MJR (Bld) [#/Vol]12.2 x10*3/uLHigh4.4-11.3UnBarnesville HospitalComment on above:Performed By: #### [id number] #### SANTOSH BAI ([id number]) [facility] ([facility] [place]) [address] [place], [place] [address]Kkowj metabolic 2000 panelon [id number] gap [Moles/Vol] 13 mmol/L10 - 20 mmol/[facility] HospitalCalcium [Mass/Vol]8.2 mg/dLLow8.6 - 10.3 mg/dLUnWood County HospitalChloride [Moles/Vol]104 mmol/L98 - 107 mmol/[facility] HospitalCO2 [Moles/Vol]23 mmol/L 21 - 32 mmol/[facility] HospitalCreatinine [Mass/Vol]0.55 mg/dL 0.50 - 1.05 mg/dLUnWood County HospitaleG- Kettering Health Main CampusComment on above:Calculations of estimated GFR are performed using the 2020 CKD-EPI Study Refit equation without therace variable for the IDMS- Traceable creatinine methods. https://jasn.asnjournals.org/content//ASN.8735336449 Glucose [Mass/Vol]131 mg/aSFnyq10 - 99 mg/dLUnWood County Hospital Interpretation and review of laboratory resultsAbnormalUniShelby Memorial HospitalPotassium [Moles/Vol]4.1 mmol/L3.5 - 5.3 mmol/[facility] HospitalSodium [Moles/Vol]136 mmol/L136 - 145 mmol/[facility] HospitalUrea nitrogen [Mass/Vol]13 mg/dL6 - 23 mg/dLJoint Township District Memorial HospitalUnWood County HospitalAnion gap [Moles/Vol]13 mmol/LNormal 10-20UnBarnesville HospitalComment on above:Performed By: #### [id number] #### SANTOSH BAI ([id number]) [facility] [facility] ([facility] [address] [place], [place] [address]Ezmcizz [Mass/Vol]8.2 mg/dLLow8.6-10.3UnBarnesville HospitalComment on above:Performed By: #### 87046-8 #### SANTOSH BAI ([id number]) [facility] ([facility]) [address] [place], [place] [address]Txasepss [Moles/Vol]104 mmol/RCmcxvg69-263WkwgywzpieBarnesville HospitalComment on above:Performed By: #### 34242-6 #### SANTOSH BAI (89054) [facility] ([facility]) [address] [place], [place] [address]JE6 [Moles/Vol]23 mmol/MGzofdu84-54WdskmhupywBarnesville HospitalComment on above:Performed By: #### 81167-2 #### SANTOSH BAI (67082) [facility] ([facility]) [address] [place], [place] [address]Vdixensadn [Mass/Vol]0.55 mg/dLNormal0.50-1.05UnBarnesville HospitalComment on above:Performed By: #### 29905-2 #### SANTOSH BAI (51136) [facility] ([facility]) [address] [place], [place] [address]EHM/1.73 sq M.predicted MDRD (S/P/Bld) [Vol rate/Area] mL/min/{1.73_m2}Normal>60UnBarnesville HospitalComment on above:Result Comment: Calculations of estimated GFR are performed using the 2020 CKD-EPI Study Refit equation without the race variable for the IDMS-Traceable creatinine methods. https://jasn.asnjournals.org/content/early//ASN.2262787545Szkngyjnn By: #### 14846-8 #### SANTOSH BAI ([id number]) [facility] ([facility]) [address] [place], [place] [address]Wtudlnd [Mass/Vol]131 mg/tKBsof00-84YhklgxufltBarnesville HospitalComment on above:Performed By: #### 93597-7 #### SANTOSH BAI (46343) [facility] ([facility]) [address] [place] [address]Ogpodvpgh [Moles/Vol]4.1 mmol/LNormal3.5-5.3Pro[facility] Deaconess HospitalComment on above:Performed By: #### 47831-3 #### SANTOSH ABI ([id number]) [facility] ([facility]) [address] [place], [place] [address]Tikjds [Moles/Vol]136 mmol/GQsottb685-886QeutnisdihProtestant Deaconess HospitalComment on above:Performed By: #### 41281-6 #### SANTOSH BAI (60052) [facility] ([facility]) [address] [place] [address]Bams nitrogen [Mass/Vol]13 mg/dLNormal6-23Protestant Deaconess HospitalComment on above:Performed By: #### 81684-9 #### SANTOSH BAI (78104) [facility] ([facility]) [address] [place], [place] [address]Upcyc metabolic 2000 panelon 70-75-2135Yidbq gap [Moles/Vol] 12 mmol/L10 - 20 mmol/LUnWood County HospitalCalcium [Mass/Vol]8.5 mg/dLLow8.6 - 10.3 mg/dLJoint Township District Memorial HospitalChloride [Moles/Vol]104 mmol/L98 - 107 mmol/[facility] HospitalCO2 [Moles/Vol]24 mmol/L 21 - 32 mmol/[facility] HospitalCreatinine [Mass/Vol]0.58 mg/dL 0.50 - 1.05 mg/dLUnWood County HospitaleGFR- PINFUniShelby Memorial HospitalComment on above:Calculations of estimated GFR are performed using the 2020 CKD-EPI Study Refit equation without therace variable for the IDMS- Traceable creatinine methods. https://jasn.asnjournals.org/content///ASN.3407224249 Glucose [Mass/Vol]124 mg/dRMgci03 - 99 mg/dLUnWood County Hospital Interpretation and review of laboratory resultsAbnoProtestant Deaconess HospitalPotassium [Moles/Vol]4.1 mmol/L3.5 - 5.3 mmol/[facility] HospitalSodium [Moles/Vol]136 mmol/L136 - 145 mmol/[facility] HospitalUrea nitrogen [Mass/Vol]12 mg/dL6 - 23 mg/dLUnWood County HospitalUnWood County HospitalAnion gap [Moles/Vol]12 mmol/LNormal 10-20UnBarnesville HospitalComment on above:Performed By: #### 12907-3 #### SANTOSH BAI (11195) [facility] ([facility]) [address] [place], [place] [address]Jczvsie [Mass/Vol]8.5 mg/dLLow8.6-10.3UnBarnesville HospitalComment on above:Performed By: #### 50260-2 #### SANTOSH BAI (86515) [facility] ([facility]) [address] [place], [place] [address]Fbveleua [Moles/Vol]104 mmol/ZXggkrk61-710VqvfvhuwblBarnesville HospitalComment on above:Performed By: #### 34426-7 #### SANTOSH BAI (93226) [facility] ([facility]) [address] [place], [place] [address]LI7 [Moles/Vol]24 mmol/LWyffjg75-99SdggqqqyygBarnesville HospitalComment on above:Performed By: #### 93308-3 #### SANTOSH BAI (95772) [facility] ([facility]) [address] [place], [place] [address]Fgzarjrhny [Mass/Vol]0.58 mg/dLNormal0.50-1.05UnBarnesville HospitalComment on above:Performed By: #### 18885-3 #### SANTOSH BAI (83974) [facility] ([facility]) [address] [place], [place] [address]BGE/1.73 sq M.predicted MDRD (S/P/Bld) [Vol rate/Area] mL/min/{1.73_m2}Normal>60UnBarnesville HospitalComment on above:Result Comment: Calculations of estimated GFR are performed using the 2020 CKD-EPI Study Refit equation without the race variable for the IDMS-Traceable creatinine methods. https://jasn.asnjournals.org/content/early//ASN.4553363871Mtbqewcud By: #### 33579-4 #### SANTOSH BAI (21530) [facility] ([facility]) [address] [place], [place] [address]Trpujsz [Mass/Vol]124 mg/tQIjlt69-65FthwnvclzqBarnesville HospitalComment on above:Performed By: #### 70086-4 #### SANTOSH BAI (63149) [facility] ([facility]) [address] [place], [place] [address]Rnefuremx [Moles/Vol]4.1 mmol/LNormal3.5-5.3Pro[facility] Deaconess HospitalComment on above:Performed By: #### 20367-4 #### SANTOSH BAI (31103) [facility] ([facility]) [address] [place], [place] [address]Uewzac [Moles/Vol]136 mmol/UYtevah227-498KyzsmccdioBarnesville HospitalComment on above:Performed By: #### 07859-3 #### SANTOSH BAI (17939) [facility] ([facility]) [address] [place], [place] [address]Yzou nitrogen [Mass/Vol]12 mg/dLNormal6-Pro[facility]aconess HospitalComment on above:Performed By: #### 80122-1 #### SANTOSH BAI (94892) [facility] ([facility]) [address] [place], [place] [address]BJO panel Auto (Bld)on 36-04-6995Dmazrkihpfm distribution width (RBC) [Ratio]13.3 %11.5 - 14.5 %[facility] Hematocrit (Bld) [Volume fraction]41.6 %36.0 - 46.0 %[facility] Memorial HospitalHemoglobin (Bld) [Mass/Vol]13.0 g/dL12.0 - 16.0 g/dLUnWood County HospitalInterpretation and review of laboratory resultsAbnoSheltering Arms Hospital (RBC) [Entitic mass]30.0 pg26.0 - 34.0 pg [facility] ShawHC (RBC) [Mass/Vol]31.3 g/dLLow32.0 - 36.0 g/dLUnWood County HospitalMCV (RBC) [Entitic vol]96 fL80 - 100 fL [facility] HospitalNucleated RBC/100 WBC (Bld) [Ratio]0.0 % [facility] HospitalPlatelets (Bld) [#/Vol]268 10*3/[facility] Shriners HospitalRBC (Bld) [#/Vol]4.34 10*6/[facility]riners HospitalWBC (Bld) [#/Vol]9.7 10*3/[facility]riners HospitalUnWood County HospitalErythrocyte distribution width (RBC) [Ratio]13.3 %Normal 11.5-14.5Pro[facility] Deaconess HospitalComment on above:Performed By: #### 75706-0 #### SANTOSH BAI (80818) [facility] ([facility]) [address] [place], [place] [address]Ckspupwttq (Bld) [Volume fraction]41.6 %Qtbfcq04.0-46.0 [facility]acon[facility] HospitalComment on above:Performed By: #### 96612-4 #### SANTOSH BAI (99945) [facility] ([facility]) [address] [place], [place] [address]Vxqlmzofpb (Bld) [Mass/Vol]13.0 g/fUNftiyf25.0-16.0Pro[facility]aconess HospitalComment on above:Performed By: #### 82634-7 #### SANTOSH BAI (09091) [facility] ([facility]) [address] [place] [address]MCH (RBC) [Entitic mass]30.0 luTqguuj76.0-34.0Pro[facility]aconess HospitalComment on above:Performed By: #### 11412-2 #### SANTOSH BAI (37809) [facility] ([facility]) [address] [place], [place] [address]RTML (RBC) [Mass/Vol]31.3 g/dLLow32.0-36.0UnBarnesville HospitalComment on above:Performed By: #### 82122-5 #### SANTOSH BAI (74354) [facility] ([facility]) [address] [place], [place] [address]NMJ (RBC) [Entitic vol]96 kOAijrny92-602YzkpvsxmssProtestant Deaconess HospitalComment on above:Performed By: #### 10191-8 #### SANTOSH BAI (47502) [facility] ([facility]) [address] [place], [place] [address]Wrplywybu RBC/100 WBC (Bld) [Ratio]0.0 /100 WBCsNormal0.0-0.0 [facility]aconess HospitalComment on above:Performed By: #### 88716-0 #### SANTOSH BAI (39043) [facility] ([facility]) [address] [place], [place] [address]Vzaqtleqx (Bld) [#/Vol]268 x10*3/bBMaqxll701-916DzrqcfetocBarnesville HospitalComment on above:Performed By: #### 20730-3 #### SANTOSH BAI (00354) [facility] ([facility]) [address] [place], [place] [address]SHD (Bld) [#/Vol]4.34 x10*6/uLNormal4.00-5.20Pro[facility]acon[facility] HospitalComment on above:Performed By: #### 34454-5 #### SANTOSH BAI (33182) [facility] ([facility]) [address] [place], [place] [address]FAF (Bld) [#/Vol]9.7 x10*3/uLNormal4.4-11.3Pro[facility]aconess HospitalComment on above:Performed By: #### 63554-9 #### SANTOSH BAI (68570) [facility] ([facility]) [address] [place], [place] [address]QV LUMBAR SPINE 4+ VIEWS WITH FLEXION EXTENSIONon 01-02-2024 XR LUMBAR SPINE 4+ VIEWS WITH FLEXION EXTENSIONInterpreted By: Danielle Orozco, STUDY: XR LUMBAR SPINE 4+ VIEWS WITH FLEXION EXTENSION; 01/02/2024 8:59 am INDICATION: Signs/Symptoms:L4-L5 lumbar stenosis with concern for spondylolisthesis. COMPARISON: None. ACCESSION NUMBER(S): [id number] ORDERING CLINICIAN: ANGELA GONZALEZ FINDINGS: Multiple views of the lumbar spine are obtained. Alignment is intact. The vertebral body heights are preserved. Disc space loss at L4/L5 with endplate sclerosis and osteophytes . No acute fracture-dislocation. IMPRESSION: Discogenic degenerative changes as described. Signed by: Danielle Orozco 01/02/2024 9:15 AM Dictation workstation: [id number] Hospital Cleveland WestXR Lumbar spine Views W flexion and W extensionon 99-75-6326Lmgxgijglx degenerative changes as described. Signed by: Danielle Orozco 01/02/2024 9:15 AM Dictation workstation: [id number] By: Danielle Orozco, STUDY: XR LUMBAR SPINE 4+ VIEWS WITH FLEXION EXTENSION; 01/02/2024 8:59 am INDICATION: Signs/Symptoms:L4-L5 lumbar stenosis with concern for spondylolisthesis. COMPARISON: None. ACCESSION NUMBER(S): [id number] ORDERING CLINICIAN: ANGELA GONZALEZ FINDINGS: Multiple views of the lumbar spine are obtained. Alignment is intact. The vertebral body heights are preserved. Disc space loss at L4/L5 with endplate sclerosis and osteophytes . No acute fracture-dislocation. [facility] MMODALDanielle Orozco MD - 01/02/2024 Interpreted By: Danielle Oorzco, STUDY: XR LUMBAR SPINE 4+ VIEWS WITH FLEXION EXTENSION; 01/02/2024 8:59 am INDICATION: Signs/Symptoms:L4-L5 lumbar stenosis with concern for spondylolisthesis. COMPARISON: None. ACCESSION NUMBER(S): [id number] ORDERING CLINICIAN: ANGELA GONZALEZ FINDINGS: Multiple views of the lumbar spine are obtained. Alignment is intact. The vertebral body heights are preserved. Disc space loss at L4/L5 with endplate sclerosis and osteophytes . No acute fracture-dislocation. IMPRESSION: Discogenic degenerative changes as described. Signed by: Danielle Orozco 01/02/2024 9:15 AM Dictation workstation: [id number] [facility] Work Phone: Radiology Study observation (narrative)[facility] Work Phone: XR Lumbar spine Views W flexion and W extensionOrdered By: Danielle Orozco on 90-50-7796EawbfpipgwWood County Hospital Work Phone: c reactive proteinon 56-74-7475DIG [Mass/Vol]0.36 mg/dLNormal<1.00UnBarnesville HospitalComment on above: Performed By: #### 1988-5 #### SANTOSH BAI ([id number]) [facility] ([facility]) [address] [place], [place] [address]U-Uekvtvlf Proteinon 67-37-6039SLB [Mass/Vol]0.36 mg/dLNINF - 1.00 mg/dLUnWood County HospitalCB W Auto Differential panel (Bld) on 27-11-4389Nnqaxuvai (Bld) [#/Vol]0.01 10*3/uLUnWood County HospitalBasophils/100 WBC (Bld)0.1 %0.0 - 2.0 %[facility] HospitalEosinophils (Bld) [#/Vol]0.22 10*3/uLUnWood County Hospital Eosinophils/100 WBC (Bld)2.5 %0.0 - 6.0 %[facility] Erythrocyte distribution width (RBC) [Ratio]13.5 %11.5 - 14.5 %[facility] HospitalHematocrit (Bld) [Volume fraction]42.0 %36.0 - 46.0 % [facility] HospitalHemoglobin (Bld) [Mass/Vol]13.2 g/dL12.0 - 16.0 g/dLUnWood County HospitalImmamount st. mary hospital granulocytes (Bld) [#/Vol]0.02 10*3/[facility]riners HospitalImchristian hospital granulocytes/100 WBC (Bld)0.2 % 0.0 - 0.9 %[facility] on above:Immature Granulocyte Count (IG) includes promyelocytes, myelocytes and metamyelocytes but does not include bands. Percent differential counts (%) should be interpreted in the context of the absolute cell counts (cells/UL).Interpretation and review of laboratory resultsAbnormalUniShelby Memorial HospitalLymphocytes (Bld) [#/Vol]3.44 10*3/[facility]riners HospitalLymphocytes/100 WBC (Bld) 38.9 %13.0 - 44.0 %[facility] ShawH (RBC) [Entitic mass]30.2 pg26.0 - 34.[address] Joseph Warren HospitalHC (RBC) [Mass/Vol]31.4 g/dL Low32.0 - 36.0 g/dLUnMercy Health St. Joseph Warren HospitalV (RBC) [Entitic vol]96 fL 80 - 100 fLUniShelby Memorial HospitalMonocytes (Bld) [#/Vol]0.75 10*3/uL [facility] HospitalMonocytes/100 WBC (Bld)8.5 %2.0 - 10.0 % [facility] HospitalNeutrophils (Bld) [#/Vol]4.41 10*3/uLUniversity Hospitals of ClevelandComment on above:Percent differential counts (%) should be interpreted in the context of the absolute cell counts (cells/uL). Neutrophils/100 WBC (Bld)49.8 %40.0 - 80.0 %[facility] Nucleated RBC/100 WBC (Bld) [Ratio]0.0 %[facility] Platelets (Bld) [#/Vol]317 10*3/[facility]riners HospitalRBC (Bld) [#/Vol]4.37 10*6/[facility]riners HospitalWBC (Bld) [#/Vol]8.9 10*3/uL [facility] HospitalUnWood County HospitalBasophils (Bld) [#/Vol]0.01 x10*3/uLNormal0.00-0.10[facility]acon[facility] HospitalComment on above:Performed By: #### 02847-4 #### SANTOSH BAI ([id number]) [facility] ([facility]) [address] [place], [place] [address]Wrbtnyjxq/100 WBC (Bld)0.1 %Normal0.0-2.0Pro[facility] Deaconess HospitalComment on above:Performed By: #### 63899-3 #### SANTOSH BAI (15338) [facility] ([facility]) [address] [place], [place] [address]Dxhuxbjpjen (Bld) [#/Vol]0.22 x10*3/uLNormal0.00-0.70 [facility] HospitalComment on above:Performed By: #### 28227-4 #### SANTOSH BAI (01265) [facility] ([facility]) [address] [place], [place] [address]Twghylwgfzj/100 WBC (Bld)2.5 %Normal0.0-6.0[facility]aconess HospitalComment on above:Performed By: #### 21271-0 #### SANTOSH BAI (77242) [facility] ([facility]) [address] [place], [place] [address]Fjwybovgjnf distribution width (RBC) [Ratio]13.5 %Normal 11.5-14.5UnBarnesville HospitalComment on above:Performed By: #### 15615-1 #### SANTOSH BAI (26548) [facility] ([facility]) [address] [place], [place] [address]Pwbomdtiyr (Bld) [Volume fraction]42.0 %Zwvctb81.0-46.0 [facility] HospitalComment on above:Performed By: #### 64192-7 #### SANTOSH BAI (82343) [facility] ([facility]) [address] [place], [place] [address]Fexhbdpxpw (Bld) [Mass/Vol]13.2 g/tKHwwyzw64.0-16.0UnBarnesville HospitalComment on above:Performed By: #### 13872-6 #### SANTOSH BAI (01285) [facility] ([facility]) [address] [place] [address]Imzccvaz granulocytes (Bld) [#/Vol]0.02 x10*3/uLNormal 0.00-0.70UnBarnesville HospitalComment on above:Performed By: #### 66784-8 #### SANTOSH BAI (90271) [facility] ([facility]) [address] [place], [place] [address]Uhsgezch granulocytes/100 WBC (Bld)0.2 %Normal0.0-0.9 [facility]aconess HospitalComment on above:Result Comment: Immature Granulocyte Count (IG) includes promyelocytes, myelocytes and metamyelocytes but does not include bands. Percent differential counts (%) should be interpreted in the context of the absolute cell counts (cells/UL). Performed By: #### 73169-6 #### SANTOSH BAI (08024) [facility] ([facility]) [address] [place], [place] [address]Ajwfpkpgixf (Bld) [#/Vol]3.44 x10*3/uLNormal1.20-4.80 [facility] HospitalComment on above:Performed By: #### 12932-7 #### SANTOSH BAI (46338) [facility] ([facility]) [address] [place], [place] [address]Vgwtxoyejwo/100 WBC (Bld)38.9 %Pycqpd47.0-44.0Pro[facility]acon[facility] HospitalComment on above:Performed By: #### 13720-7 #### SANTOSH BAI (77576) [facility] ([facility]) [address] [place], [place] [address]JYL (RBC) [Entitic mass]30.2 tlSbqdcm87.0-34.0UnBarnesville HospitalComment on above:Performed By: #### 46727-7 #### SANTOSH BAI (75709) [facility] ([facility]) [address] [place], [place] [address]ETXH (RBC) [Mass/Vol]31.4 g/dLLow32.0-36.0UnBarnesville HospitalComment on above:Performed By: #### 68914-8 #### SANTOSH BAI (14075) [facility] ([facility]) [address] [place], [place] [address]XPM (RBC) [Entitic vol]96 jYBvoyma77-835KtmlzzxmojProtestant Deaconess HospitalComment on above:Performed By: #### 34352-0 #### SANTOSH BAI (47439) [facility] ([facility]) [address] [place], [place] [address]Cibxjezhg (Bld) [#/Vol]0.75 x10*3/uLNormal0.10-1.00UnBarnesville HospitalComment on above:Performed By: #### 80586-0 #### SANTOSH BAI (20860) [facility] ([facility]) [address] [place], [place] [address]Dyccktxlz/100 WBC (Bld)8.5 %Normal2.0-10.0UnBarnesville HospitalComment on above:Performed By: #### 94880-6 #### SANTOSH BAI (33833) [facility] ([facility]) [address] [place], [place] [address]Rtvsvbaynio (Bld) [#/Vol]4.41 x10*3/uLNormal1.20-7.70 [facility] HospitalComment on above:Result Comment: Percent differential counts (%) should be interpreted in the context of the absolute cell counts (cells/uL).Performed By: #### 79745-4 #### SANTOSH BAI (50528) [facility] ([facility]) [address] [place], [place] [address]Xdwifszxskj/100 WBC (Bld)49.8 %Yidkqy61.0-80.0UnBarnesville HospitalComment on above:Performed By: #### 89582-1 #### SANTOSH BAI (75825) [facility] ([facility]) [address] [place], [place] [address]Tfleozhfq RBC/100 WBC (Bld) [Ratio]0.0 /100 WBCsNormal0.0-0.0 [facility] HospitalComment on above:Performed By: #### 63741-6 #### SANTOSH BAI ([id number]) [facility] ([facility]) [address] [place], [place] [address]Fyrgwqemw (Bld) [#/Vol]317 x10*3/aLTevsso858-007SuvghzsatmBarnesville HospitalComment on above:Performed By: #### 49096-0 #### SANTOSH BAI (32096) [facility] ([facility]) [address] [place], [place] [address]GQQ (Bld) [#/Vol]4.37 x10*6/uLNormal4.00-5.20UnBarnesville HospitalComment on above:Performed By: #### 86270-2 #### SANTOSH BAI (67239) [facility] ([facility]) [address] [place], [place] [address]IEL (Bld) [#/Vol]8.9 x10*3/uLNormal4.4-11.3Pro[facility]aconess HospitalComment on above:Performed By: #### 05767-6 #### SANTOSH BAI (49666) [facility] ([facility]) [address] [place], [place] [address]LJP [Mass/Vol]on 78-79-7303Tpkarfricebklx and review of laboratory resultsNoProtestant Deaconess HospitalComprehensive metabolic 2000 panelon 40-72-8356Aumykvt BCP dye [Mass/Vol]4.1 g/dL3.4 - 5.0 g/dL [facility] HospitalALP [Catalytic activity/Vol]75 U/L33 - 110 U/L [facility] With P-5'-P [Catalytic activity/Vol]19 U/L7 - 45 U/[facility] HospitalCommclaren northern michigan on above:Patients treated with Sulfasalazine may generate falsely decreased results for ALT.Anion gap [Moles/Vol]13 mmol/L10 - 20 mmol/[facility] HospitalAST With P-5'-P [Catalytic activity/Vol]25 U/L9 - 39 U/[facility] Comment on above:MILD HEMOLYSIS DETECTED. The result may be falsely elevated due to hemolysis or other interferents.Clinical correlation is recommended. Repeat testing may be considered.Bilirubin [Mass/Vol]0.2 mg/dL0.0 - 1.2 mg/dLUnWood County HospitalCalcium [Mass/Vol]8.2 mg/dLLow8.6 - 10.3 mg/dLUnWood County HospitalChloride [Moles/Vol]106 mmol/L98 - 107 mmol/[facility] HospitalCO2 [Moles/Vol]25 mmol/L21 - 32 mmol/[facility] HospitalCreatinine [Mass/Vol]0.71 mg/dL0.50 - 1.05 mg/dLUnWood County HospitaleGFR- PINFUniShelby Memorial HospitalCommclaren [place] on above:Calculations of estimated GFR are performed using the 2020 CKD-EPI Study Refit equation without therace variable for the IDMS-Traceable creatinine methods. https://jasn.asnjournals.org/content/early/ASN.4119816426 Glucose [Mass/Vol]101 mg/bLAuja77 - 99 mg/dLUnWood County Hospital Interpretation and review of laboratory resultsAbnoProtestant Deaconess HospitalPotassium [Moles/Vol]4.8 mmol/L3.5 - 5.3 mmol/[facility] HospitalComment on above:MILD HEMOLYSIS DETECTED. The result may be falsely elevated due to hemolysis or other interferents.Clinical correlation is recommended. Repeat testing may be considered.Protein [Mass/Vol]6.8 g/dL6.4 - 8.2 g/dLUnWood County HospitalSodium [Moles/Vol]139 mmol/L136 - 145 mmol/[facility] HospitalUrea nitrogen [Mass/Vol]20 mg/dL6 - 23 mg/dLJoint Township District Memorial HospitalAlbumin BCP dye [Mass/Vol]4.1 g/dLNormal 3.4-5.0UnBarnesville HospitalComment on above:Performed By: #### [id number] #### SANTOSH BAI ([id number]) [facility] ([facility] [place] [address], [place] [address]GDC [Catalytic activity/Vol]75 U/WSiamtp42-089OxtdcpmoulBarnesville HospitalComment on above:Performed By: #### [id number] #### SANTOSH BAI ([id number]) [facility] ([facility] [place]) [address], [place] [address]NSJ With P-5'-P [Catalytic activity/Vol]19 U/LNormal7-45 [facility] HospitalComment on above:Result Comment: Patients treated with Sulfasalazine may generate falsely decreased results for ALT.Performed By: #### [id number] #### SANTOSH BAI ([id number]) [facility] ([facility] [place]) [address], [place] [address]Ctcqh gap [Moles/Vol]13 mmol/RUevazy51-13IoqjiveqmmBarnesville HospitalComment on above:Performed By: #### [id number] #### SANTOSH BAI ([id number]) [facility] [place] [address], [place] [address]KBD With P-5'-P [Catalytic activity/Vol]25 U/LNormal9-39 [facility] Deaconess HospitalComment on above:Result Comment: MILD HEMOLYSIS DETECTED. The result may be falsely elevated due to hemolysis or other interferents. Clinical correlation is recommended. Repeat testing may be considered.Performed By: #### 10514-6 #### SANTOSH BAI ([id number]) [facility] ([facility] [address], [place] [address]Jjglprpcb [Mass/Vol]0.2 mg/dLNormal0.0-1.2Pro[facility] Deaconess HospitalComment on above:Performed By: #### 84666-1 #### SANTOSH BAI ([id number]) [facility] ([facility] [address], [place] [address]Gpejobw [Mass/Vol]8.2 mg/dLLow8.6-10.3[facility]aconess HospitalComment on above:Performed By: #### 81342-2 #### SANTOSH BAI ([id number]) [facility] ([facility]) [address], [place] [address]Uclbtaxo [Moles/Vol]106 mmol/YWwylda84-398EynmmmyeqvBarnesville HospitalComment on above:Performed By: #### 80202-6 #### SANTOSH BAI ([id number]) [facility] ([facility] [address], [place] [address]PB5 [Moles/Vol]25 mmol/KIhjgmh46-05YiayyxjryeBarnesville HospitalComment on above:Performed By: #### 16525-6 #### SANTOSH BAI ([id number]) [facility] ([facility]) [address], [place] [address]Oiwybcejaj [Mass/Vol]0.71 mg/dLNormal0.50-1.05UnBarnesville HospitalComment on above:Performed By: #### 85855-8 #### SANTOSH BAI (78054) [facility] ([facility]) [address], [place] [address]XSI/1.73 sq M.predicted MDRD (S/P/Bld) [Vol rate/Area] mL/min/{1.73_m2}Normal>60UnBarnesville HospitalComment on above:Result Comment: Calculations of estimated GFR are performed using the 2021 CKD-EPI Study Refit equation without the race variable for the IDMS-Traceable creatinine methods. https://jasn.asnjournals.org/content//ASN.4154773106Mllfxkfca By: #### 90625-7 #### SANTOSH BAI ([id number]) [facility] ([facility]) [address], [place] [address]Itmmaye [Mass/Vol]101 mg/aOBkpv50-71MtqxvtjszyBarnesville HospitalComment on above:Performed By: #### 03059-9 #### SANTOSH BAI ([id number]) [facility] ([facility]) [address], [place] [address]Xqvqraogu [Moles/Vol]4.8 mmol/LNormal3.5-5.3Pro[facility] Deaconess HospitalComment on above:Result Comment: MILD HEMOLYSIS DETECTED. The result may be falsely elevated due to hemolysis or other interferents. Clinical correlation is recommended. Repeat testing may be considered.Performed By: #### 87001-5 #### SANTOSH BAI ([id number]) [facility] ([facility]) [address], [place] [address]Vezedhb [Mass/Vol]6.8 g/dLNormal6.4-8.2UnBarnesville HospitalComment on above:Performed By: #### 72678-6 #### SANTOSH BAI ([id number]) [facility] ([facility]) [address], [place] [address]Ivtujd [Moles/Vol]139 mmol/ZPgknzv874-404HnjcryqnwzBarnesville HospitalComment on above:Performed By: #### 00098-7 #### SANTOSH BAI ([id number]) [facility] ([facility]) [address], [place] [address]Vzyw nitrogen [Mass/Vol]20 mg/dLNormal6-23Pro[facility] Deaconess HospitalComment on above:Performed By: #### 12620-5 #### SANTOSH BAI ([id number]) [facility] ([facility]) [address], [place] [address]IKL Westergren method (Bld) [Velocity]on 94-28-2653PSW (Bld) [Velocity]17 mm/h0 - 20 mm/Holzer HospitalInterpretation and review of laboratory resultsNoalUMercy Health Perrysburg HospitalESR (Bld) [Velocity]17 mm/hNormal0-20Pro[facility] Deaconess HospitalComment on above:Performed By: #### 4537-7 #### SANTOSH RICHARDSON ([id number]) [facility] ([facility]) [address], [place] [address]JC LUMBAR SPINE W AND WO IV CONTRASTon [id number] LUMBAR SPINE W AND WO IV CONTRASTInterpreted By: Claudio Balderas, STUDY: MR LUMBAR SPINE W AND WO IV CONTRAST INDICATION: Signs/Symptoms:Paresthesia and weakness of the left lower extremity COMPARISON: Lumbar spine MRI 12/18/2023 ACCESSION NUMBER(S): [id number] ORDERING CLINICIAN: MICHLEE LION TECHNIQUE: Multiplanar multisequence MRI of the [...] Claudio Balderas 01/01/2024 5:46 PM Dictation workstation: [id number] Hospital Cleveland WestComment on above:Order Comment: Recent MRI completed on December 19. I spoke with neurosurgery Dr. Adams and she indicated if there is any weakness we need another MRI. Patient was seen both by myself and attending and there is concern not only for the paresthesia but weakness.MR Lumbar spine WO and W contrast Karen [id number] By: Claudio Balderas, STUDY: MR LUMBAR SPINE W AND WO IV CONTRAST INDICATION: Signs/Symptoms:Paresthesia and weakness of the left lower extremity COMPARISON: Lumbar spine MRI 12/18/2023 ACCESSION NUMBER(S): [id number] ORDERING CLINICIAN: MICHELE LION TECHNIQUE: Multiplanar multisequence [...] degenerative changes of the sacroiliac joints. [facility] MMODALClaudio Balderas MD - 01/01/2024 Interpreted By: Claudio Balderas, STUDY: MR LUMBAR SPINE W AND WO IV CONTRAST INDICATION: Signs/Symptoms:Paresthesia and weakness of the left lower extremity COMPARISON: Lumbar spine MRI 12/18/2023 ACCESSION NUMBER(S): [id number] ORDERING CLINICIAN: MICHELE LION TECHNIQUE: Multiplanar multisequence [...] Claudio Balderas 01/01/2024 5:46 PM Dictation workstation: [id number] [facility] Work Phone: Radiology Study observation (narrative)[facility] Work Phone: Lumbar spine WO and W contrast IVOrdered By: Claudio Balderas on 53-90-2431IsppvlnbmiWood County Hospital Work Phone: no Panel Informationon 43-32-4586UqpnpmhcffWood County HospitalED Note-Physicianon 62-72-6848UE Note-PhysicianED Note-Physician Basic Information Time Seen: Manuel Naik [...] of back pain similar to when she hadpreoperatively. She denies any radicular symptoms. She denies [...] other associated symptoms no other prior treatments orcomplaints. Family: Reviewed and noncontributory Social: lives at [...] lumbar spine. There is no focal tenderness topalpation throughout the lumbar spine. There is paraspinal [...] day(s), # 10 cap(s), Refills(s) 0, Pharmacy: [facility], 160, cm, 12/26/23 18:17:00 EDT, Height/Length Dosing, 114.8, kg, 12/26/23 18:17:00 EDT, Weight Dosing tizanidine, 2 mg = 1 tab(s), Oral, q8hr, X 7 day(s), # 21 tab(s), Refills(s) 0, Pharmacy: [facility], 160, cm, 12/26/23 18:17:00 EDT, Height/Length [...] Oral, q8hr Follow-up With When Contact Information Mayra Ralph In 3 days 12/29/2023 EDT [address] [facility], [facility] A [facility] [facility] [address] [place], [place] [id number] Business (1) Additional Instructions: Patient Educa (more content not included)...[facility] Comment on above:Result Comment: Electronically Signed By: Manuel Naik PA-C\.br\Date and Time Signed: 12/25/2421:19 EDT\.br\Electronically Co-Signed By: Elisa Sánchez DO\.br\Date and Time Co-Signed: 12/27/23 00:50 EDTCT Spine Lumbar w/o Contraston [id number] Spine Lumbar w/o ContrastEXAM: CT Spine Lumbar w/o Contrast HISTORY: Fall, [...] soft tissues are normal in appearance. IMPRESSION: Jrps-zz-wdgntfzg degenerative changes without any high-grade canal stenosis Final Dictated by: Griffin Garnett MD Dictated DT/TM: 12/26/23 12:15 Signed (Electronic Signature): Griffin Garnett MD 12/26/23 12:23 p Technologist: Olive TRANBrecksville Va [facility] HospitalED Clinical Summaryon [id number] Clinical SummaryED Clinical Summary [place] [address] ED Clinical Summary Person Information Name: JERAD TRACY [place] Age: 48 Years : 1975 Sex: Female Language: Malagasy PCP: Mayra Rincon Marital Status: Visit Id: Visit Reason: [...] 12/26/2023 22:27:28 12/26/2023 22:27:28 12/26/2023 22:27:28 ADDRESS: [address] [place] [id number] PHYS DOC NOTES: MEDICAL INFORMATION: Prescriptions Given: New Medications [facility], [address], [place] [id number], [phone] oxycodone (oxyCODONE 5 mg Cap) 1 Capsules [...] Pain, Adult Follow up: With: Address: When: Mayra Rosas [address], [facility] A, [address] [address] [employer] (1) In 3 days 12/29/2023 DIAGNOSIS: Low back pain; Lumbar strain; S/P lumbar spine operationA[facility] Clinical [facility] Emergency Department [address] [place] [address] [id number] ED Clinical Summary PERSON INFORMATION Name: JERAD TRACY Age: 48 Years Sex: FEMALE : 1975 MRN: Acct#: Visit Reason: Back pain; Fall; FALL-LOWER BACK PAIN Arrival: 12/26/2023 11:01:02 Discharge: 12/26/2023 12:37:00 LOS: 000 01:36 Check In: 12/26/2023 11:01:02 Checkout:12/26/2023 12:37:00 Address: [address] [place] [address] PCP: Mayra Mckeon PROVIDER INFORMATION Provider Role Assigned Unassigned Raj Ayers MD ED Provider 12/26/2023 11:01:53 Niki Reyes FIELD SERVICER Nurse 12/26/2023 11:03:24 VITALS INFORMATION Vital Sign [...] EDUCATION INFORMATION Instructions: Lumbar Sprain; Back Exercises, Fyqs-kf-Xgru Follow-Up: With: Address: When: Mayra Mckeon [facility] [address] [place] [phone] Within 3 to 5 days DIAGNOSIS: 1:Fall; 2:Lumbar sprain Patient Understands: Yes - Patient/family/caregiver verbalizes understanding of instructions given Comment:[facility] CenterED Note-Nursingon [id number] Note-NursingPt ambulatory back to ED RM 8 C/O lower back pain. [...] Pt is A/Ox4 call light within reach oMercy Health Fairfield HospitalED Patient Summaryon [id number] Patient SummaryED Patient Summary [address] [address] Patient Discharge Instructions Person Information Name: JERAD TRACY Age: 48 Years Arrival Date: 12/26/2023 18:03:46 Discharge Diagnosis: Low back pain; Lumbar strain; S/P lumbar spine operation Primary Care Physician: Mayra Rincon Provider Information Primary Provider: Elisa Sánchez DO Advanced Dietetic Intern:Manuel Naik PA-C The exam and treatment you received in the Emergency Department were for an urgent problem and are not intended as complete care. It is important that you follow up with a doctor, nurse practitioner,or physician?s construction assistant for ongoing care. If your symptoms become worse or you do not improve as expected and you are unable to reach your usual health care provider, you should return to the Emergency Department. We are available 24 hours a day. JERAD TRACY has been given the following list of patient education materials, prescriptions andfollow-up instructions: Follow-up Instructions: With: Address: When: Mayra Ralph [address], [address], [place] [phone] Business (1) In 3 days 12/29/2023 In the event that this physician does not participate in your insurance network, please consult with your insurance company to find a nearby participating provider. Patient Education Materials: Acute Back Pain, Adult A MESSAGE TO ALL PATIENTS REGARDING OPIOIDS PRESCRIPTION OPIOIDS: WHAT YOU NEED TO KNOW Prescription opioids can be used to help relieve khlvphel-xy-jrvykl pain and are often prescribed following a [...] and have fewer risks and side effects. Optionsmay include: ? Pain relievers such as acetaminophen, [...] unused prescription opioids: Find your community drug take- back program or [employer] mail-back program, or flush them down the toilet, following guidance from the Food and Drug Administration (www.fda.gov/Drugs/ResourcesForYou). ? Visit www.cdc.gov/drugoverdose to learn about the risks of opioids abuse and overdose. ? If you believe you may be struggling with addiction, tell your health childcare aide and ask for (more content not included)...[facility] Patient [facility] Emergency Department [address] [place] [address] PATIENT DISCHARGE INSTRUCTIONS Patient Information Name: JERAD TRACY Age: 48 Years Date of : 1975 Reason For Visit: Back pain; Fall; FALL-LOWER BACK PAIN Arrival Time: 12/26/2023 11:01:02 Primary Care Physician: Mayra Mckeon Attending Physician: Raj Ayers MD Comment: Visit Diagnosis: Diagnoses This Visit Back pain ([id number]) Fall (W19.XXXA) Fall ([id number]) Lumbar sprain (S33.5XXA) The Pharmacy at [facility] is open Saturday through Saturday from 9A to 6P and Saturday and Saturday from 9A to 5P Prescription Information: If you have been given a prescription for narcotics, seek immediate medical attention if you have any difficulty breathing or any sudden status changes such as confusion andsleepiness. If you or anyone you know is experiencing suicidal thoughts, mental health, alcohol and/or drug addiction problems; contact the [facility] 15/10 Crisis Hotline -Text 3BHGQ vj 300355. If you received any narcotics, sedation, or [...] sign any legal documents With: Address: When: Mayra Mckeon [address] [place] [address] A [place] [phone] Within 3 to 5 days Medication Information: The exam and treatment you received today in the [facility] Emergency Department were for an urgent problem and are not intended as complete care. It is important for you to follow up with a doctor, nurse practitioner, or physician?s construction assistant for ongoing care. If your symptoms become worse or you donot improve as expected and you are unable [...] so we can reach you if necessary. [facility] Emergency Department has provided you with a complete list of medications post discharge. Please inform your project control officer/provider of your visit and for further instruction [...] severe sprains involve tearin (more content not included)...[facility] Children's Medical CenterBMPon 39-15-9783Eepmq gap [Moles/Vol]8 mmol/LNormal6-16On License Of [facility] Centerer [facility] Cow[facility] Shock Trauma CenterComment on above:Performed By: #### [id number] #### [facility] Laboratory [address] [place], [place] [address]Pxsjgdk [Mass/Vol]8.6 mg/dLLow8.9-11.1Fisher R [facility] Cow[facility] Shock Trauma CenterComment on above:Performed By: #### [id number] #### [facility] [address] [place], [place] [address]Dblibnbh [Moles/Vol]108 mmol/GEedhdh450-545VvosgeOhiohealth Berger HospitalComment on above:Performed By: #### [id number] #### [facility] [address] [place], [place] [address]WP3 [Moles/Vol]28 mmol/MAzdata55-62OsfmhnOhiohealth Berger Hospital Comment on above:Performed By: #### [id number] #### [facility] [address] [place], [place] [address]Ntjzcdeipr [Mass/Vol]0.7 mg/dLNormal0.5-1.3FClermont County HospitalComment on above:Performed By: #### [id number] #### [facility] [address] [place], [place] [address]Yhjyyai [Mass/Vol]85 mg/rHScmluz88-170RrqzwgOhiohealth Berger HospitalComment on above:Performed By: #### [id number] #### [facility] [address] [place], [place] [address]Mmqvcfbhr [Moles/Vol]4.2 mmol/LNormal3.5-5.3FClermont County HospitalComment on above:Performed By: #### [id number] #### [facility] [address] [place], [place] [address]Gieaji [Moles/Vol]140 mmol/XXtledb449-487DpzohcOhiohealth Berger HospitalComment on above:Performed By: #### [id number] #### [facility] [address] [place], [place] [address]Vbhs nitrogen [Mass/Vol]7 mg/dLNormal5-21[facility] HospitalComment on above:Performed By: #### [id number] #### [facility] [address] [place], [place] [address]Icqs nitrogen/Creatinine [Mass ratio]10 No KbotoJkcrlx37-01 [facility] HospitalComment on above:Performed By: #### [id number] #### [facility] [address] [place] [address]SRZ w/ Auto Diffon 66-51-6560Djbzaaiad/100 WBC (Bld)0.4 %Normal 0.0-2.0[facility] Berger HospitalComment on above:Performed By: #### [id number] #### [facility] [address] [place] [address]Uwdjkjrqg/Leukocytes Auto (Bld) [Pure # fraction]0.0 E9/LNormal 0.0-0.2FClermont County HospitalComment on above:Performed By: #### [id number] #### [facility] [address] [place] [address]Bxzndbkvzqk (Bld) [#/Vol]0.1 E9/LNormal0.0-0.5FClermont County HospitalComment on above:Performed By: #### [id number] #### [facility] [address] [place] [address]Xnqbybnvaay/100 WBC (Bld)1.8 %Normal0.0-8.0[facility] Berger HospitalComment on above:Performed By: #### [id number] #### [facility] [address] [place] [address]Uqmljkgkgli distribution width (RBC) [Ratio]13.6 %Normal 10.9-14.2FClermont County HospitalComment on above:Performed By: #### [id number] #### [facility] [address] [place] [address]Kdmavkcarz (Bld) [Volume fraction]39.1 %Reionl36.0-46.0[facility] HospitalComment on above:Performed By: #### [id number] #### [facility] [address] [place] [address]Asmvhmrzaq (Bld) [Mass/Vol]13.6 g/cRKfcwga27.0-16.0[facility] HospitalComment on above:Performed By: #### [id number] #### [facility] [address] [place] [address]Dnzudvuybgb (Bld) [#/Vol]1.9 E9/LNormal1.0-4.0[facility] Berger HospitalComment on above:Performed By: #### [id number] #### [facility] [address] [place] [address]Dpzqifkfxuj/100 WBC (Bld)23.2 %Hsydgs35.0-50.0[facility] Berger HospitalComment on above:Performed By: #### [id number] #### [facility] [address] [place] [address]CMN (RBC) [Entitic mass]31.9 ivCzjhxt46.0-34.0[facility] Berger HospitalComment on above:Performed By: #### [id number] #### [facility] [address] [place] [address]FHZF (RBC) [Mass/Vol]34.7 g/wBCqdpsn20.4-36.0[facility] HospitalComment on above:Performed By: #### [id number] #### [facility] [address] [place] [address]BDG (RBC) [Entitic vol]91.9 tBOzlsgc77.0-100.0[facility] HospitalComment on above:Performed By: #### [id number] #### [facility] [address] [place] [address]Zvotwjlmr (Bld) [#/Vol]0.5 E9/LNormal0.2-1.0[facility] HospitalComment on above:Performed By: #### [id number] #### [facility] [address] [place] [address]Xrcfjvcuika (Bld) [#/Vol]5.5 E9/LNormal2.0-7.5FClermont County HospitalComment on above:Performed By: #### [id number] #### [facility] [address] [place] [address]Jcbsyaahztx/100 WBC (Bld)68.2 %Jqgbly35.0-75.0[facility] Berger HospitalComment on above:Performed By: #### [id number] #### [facility] [address] [place], [place] [address]Yklsoisw889.0 E9/TIxzfoe001.0-500.0[facility] Comment on above:Performed By: #### [id number] #### [facility] [address] [place], [place] [address]Djripzto mean volume (Bld) [Entitic vol]7.9 fLNormal6.4-10.8 [facility] HospitalComment on above:Performed By: #### [id number] #### [facility] [address] [place] [address]EVU (Bld) [#/Vol]4.3 E12/LNormal4.3-5.9[facility] Berger HospitalComment on above:Performed By: #### [id number] #### [facility] [address] [place] [address]DHZ corrected for nucl RBC Auto (Bld) [#/Vol]8.1 E9/LNormal 4.0-11.0[facility] Berger HospitalComment on above:Performed By: #### [id number] #### [facility] [address] [place] [address]WWFUPJXIKOcktwzd By: SYSTEM SYSTEM on 28-98-7966Oxzctni [Mass/Vol]4.0 g/dLNormal3.3 - 5.0 gm/dLRemisol ChemAlbumin/Globulin [Mass ratio] 1.3 {ratio}Normal1.1 - 2.2Remisol ChemALP [Catalytic activity/Vol]70 [iU]/d Ujngjk09 - 98 Int._Unit/LRemisol ChemALT No additional P-5'-P [Catalytic activity/Vol]20 [iU]/dNormal6 - 46 Int._Unit/LRemisol ChemAnion gap [Moles/Vol]8 mmol/LNormal6 - 16 mEq/LRemisol ChemAST [Catalytic activity/Vol]21 [iU]/dNormal 5 - 43 Int._Unit/LRemisol ChemBilirubin [Mass/Vol]0.5 mg/dLNormal0.0 - 1.1 mg/dL Remisol ChemBilirubin.direct [Mass/Vol]0.1 mg/dLNormal0.0 - 0.4 mg/dLRemisol ChemBilirubin.indirect [Mass or moles/Vol]0.4 mg/dLNormal0.1 - 0.9 mg/dLRemisol ChemCalcium [Mass/Vol]8.6 mg/dLLow8.9 - 11.1 mg/dLRemisol ChemChloride [Moles/Vol]108 mmol/TGleufc271 - 111 mmol/LRemisol ChemCO2 [Moles/Vol]28 mmol/L Bpbgav46 - 31 mmol/LRemisol ChemCreatinine [Mass/Vol]0.7 mg/dLNormal0.5 - 1.3 mg/dLRemisol BopcrPDR855 mL/min/1.73 b7Swhfxb>=59mL/min/1.73 t1Rcluxab Chem Globulin (S) [Mass/Vol]3.0 g/dLNormal1.4 - 4.0 gm/dLRemisol ChemGlucose [Mass/Vol]85 mg/eSHouxuw84 - 199 mg/dLRemisol ChemLipase [Catalytic activity/Vol]18 U/EYresjg64 - 58 unit/LRemisol ChemPotassium [Moles/Vol]4.2 mmol/LNormal3.5 - 5.3 mmol/LRemisol ChemProtein [Mass/Vol]7.0 g/dLNormal6.0 - 7.8 gm/dLRemisol ChemSodium [Moles/Vol]140 mmol/KQjqgob161 - 145 mmol/LRemisol ChemUrea nitrogen [Mass/Vol]7 mg/dLNormal5 - 21 mg/dLRemisol ChemUrea nitrogen/Creatinine [Mass ratio]10 mg/giAiyklc11 - 20Remisol ChemED Clinical Summaryon [id number] Clinical SummaryED Clinical Summary [address] [address] ED Clinical Summary Person Information Name: JERAD TRACY Tasha/[facility] Age: 48 Years : 1975 Sex: Female Language: Malagasy PCP: Mayra Rincon Marital Status: Visit Id: Visit Reason: [...] 12/24/2023 17:00:04 12/24/2023 17:00:04 12/24/2023 17:00:04 ADDRESS: [address] [place] [address] [facility] [id number] [facility] DOC NOTES: MEDICAL INFORMATION: Prescriptions Given: New Medications [facility], [address], [place] [id number], [phone] dicyclomine (Bentyl 10 mg Cap) 2 Capsules [...] Refills: 1. fluticasone nasal (Flonase 0.05 mg/inh [place]) 2 Sprays Topical every day. each nostril. [...] Pain, Adult Follow up: With: Address: When: Mayra [address], [address], [place] [address] [facility] (1) In 3 days 12/27/2023 Comments: Make sure to follow-up with your liver doctor as discussed. Return to the emergency room if your pain gets worse, vomiting, fever or any new symptoms. DIAGNOSIS: 1:Right upper quadrant abdominal painNormalOn License Of Un[facility] Medical Centerer [facility]ock Medical CenterED Note-Physicianon 03-82-5435TF Note-PhysicianED Note-Physician Basic Information Time Seen: Balbina Bryant [...] history of gallbladder removed. She states she isconcerned for her liver enzymes. The patient describes the pain as throbbing. The patient denies any nausea, denies any vomiting. She reports some loose stool this morning. Denies any black or bloodystool. The patient denies any fever denies any [...] and Complexity of Problems Differential Diagnosis: [] [facility] Data External documents reviewed: [] My EKG [...] QID, # 20 cap(s), Refills(s) 0, Pharmacy: [facility], 160, cm, 12/24/23 14:30:00 EDT, Height/Length [...] Oral, QID Follow-up With When Contact Information Mayra Rosas In 3 days 12/27/2023 EDT [address], [address] [place] [id number] Business (1) Additional Instructions: Make sure to [...] Liver disease Migraines Procedu (more content not included)...Newark HospitalComment on above:Result Comment: Electronically Signed By: Anntete Watkins, Balbina Sparks\.br\Date and Time Signed: 12/24/2415:53 EDTED Patient Summaryon [id number] Patient SummaryED Patient Summary [address] [address] Patient Discharge Instructions Person Information Name: JERAD TRACY Age: 48 Years Arrival Date: 12/24/2023 14:05:12 Discharge Diagnosis: 1:Right upper quadrant abdominal pain Primary Care Physician: Mayra [place] Provider Information Primary Provider: Balbina Bryant M.D. Advanced Dietetic Intern:None The exam and treatment you received in the Emergency Department were for an urgent problem and are not intended as complete care. It is important that you follow up with a doctor, nurse practitioner,or physician?s construction assistant for ongoing care. If your symptoms become worse or you do not improve as expected and you are unable to reach your usual health care provider, you should return to the Emergency Department. We are available 24 hours a day. JERAD TRACY has been given the following list of patient education materials, prescriptions andfollow-up instructions: Follow-up Instructions: With: Address: When: Mayra Rosas [address] [place] [address] A, [place] [phone] Business (1) In 3 days 12/27/2023 Comments: [...] opioids can be used to help relieve qrkkmmlg-yo-opczzr pain and are often prescribed following a [...] and have fewer risks and side effects. Optionsmay include: ? Pain relievers such as acetaminophen, [...] unused prescription opioids: Find your community drug take- back program or [employer] mail-back program, or flush them down the toilet, following guidance from the Food and Drug Administration (www.fda.gov/Drugs/ResourcesForYou). ? Visit www.cdc.gov/drugoverdose to learn about the risks of opi (more content not included)...[facility] HospitalExtra Blueon 55-33-3068Epyu Collected PlasmaYesInvalid Interpretation [facility] HospitalComment on above:Performed By: #### [id number] ####[facility] [address] [place], [place] [address]XSSTTLOVXNGtulgkr By: SYSTEM SYSTEM on 21-90-8977Qzkbmddwq/100 WBC (Bld)0.4 %Normal0.0 - 2.0 %Remisol Heme Basophils/Leukocytes Auto (Bld) [Pure # fraction]0.0 E9/LNormal0.0 - 0.2 E9/L Remisol HemeEosinophils (Bld) [#/Vol]0.1 E9/LNormal0.0 - 0.5 E9/LRemisol Heme Eosinophils/100 WBC (Bld)1.8 %Normal0.0 - 8.0 %Remisol HemeErythrocyte distribution width (RBC) [Ratio]13.6 %Ifedft87.9 - 14.2 %Remisol HemeHematocrit (Bld) [Volume fraction]39.1 %Jhsxpu64.0 - 46.0 %Remisol HemeHemoglobin (Bld) [Mass/Vol]13.6 g/eFYufokx14.0 - 16.0 gm/dLRemisol HemeLymphocytes (Bld) [#/Vol] 1.9 E9/LNormal1.0 - 4.0 E9/LRemisol HemeLymphocytes/100 WBC (Bld)23.2 %Normal 14.0 - 50.0 %Remisol HemeMCH (RBC) [Entitic mass]31.9 onRwycrq79.0 - 34.0 pg Remisol HemeMCHC (RBC) [Mass/Vol]34.7 g/jTNggkia22.4 - 36.0 gm/dLRemisol HemeMCV (RBC) [Entitic vol]91.9 dJRawxuy57.0 - 100.0 fLRemisol HemeMonocytes (Bld) [#/Vol]0.5 E9/LNormal0.2 - 1.0 E9/LRemisol HemeMonocytes/100 WBC (Bld)6.4 % Normal4.0 - 14.0 %Remisol HemeNeutrophils (Bld) [#/Vol]5.5 E9/LNormal2.0 - 7.5 E9/LRemisol HemeNeutrophils/100 WBC (Bld)68.2 %Mmgzni87.0 - 75.0 %Remisol Heme Lyyehgta889.0 E9/AXfsxkh157.0 - 500.0 E9/LRemisol HemePlatelet mean volume (Bld) [Entitic vol]7.9 fLNormal6.4 - 10.8 fLRemisol HemeRBC (Bld) [#/Vol]4.3 E12/L Normal4.3 - 5.9 E12/LRemisol HemeWBC corrected for nucl RBC Auto (Bld) [#/Vol] 8.1 E9/LNormal4.0 - 11.0 E9/LRemisol HemeHep Func Panelon 61-69-8049Vzkcekb [Mass/Vol]4.0 g/dLNormal3.3-5.0Ohio[facility] Berger HospitalComment on above: Performed By: #### [id number] #### [facility] [address] [place], [place] [address]Bpeauwh/Globulin (S) [Mass conc ratio]1.9Kqwyya5.1-2.2FClermont County HospitalComment on above:Performed By: #### [id number] #### [facility] [address], [place] [address]JLL [Catalytic activity/Vol]70 Int._Unit/QAwexfi32-31QxntioOhiohealth Berger HospitalComment on above:Performed By: #### [id number] #### [facility] [address], [place] [address]TAK No additional P-5'-P [Catalytic activity/Vol]20 Int._Unit/L Normal6-46Ohiohealth Berger HospitalComment on above:Performed By: #### [id number] #### [facility] [address], [place] [address]DIH [Catalytic activity/Vol]21 Int._Unit/LNormal5-43Ohio[facility] Berger HospitalComment on above:Performed By: #### [id number] #### [facility] [address], [place] [address]Dzymlrpaj [Mass/Vol]0.5 mg/dLNormal0.0-1.1FClermont County HospitalComment on above:Performed By: #### [id number] #### [facility] [address], [place] [address]Ckuvucpvs.direct [Mass/Vol]0.1 mg/dLNormal0.0-0.4FClermont County HospitalComment on above:Performed By: #### [id number] #### [facility] [address], [place] [address]Ekukvbqve.indirect [Mass or moles/Vol]0.4 mg/dLNormal0.1-0.9 [facility] HospitalComment on above:Performed By: #### [id number] #### [facility] [address], [place] [address]Itsifsbn (S) [Mass/Vol]3.0 g/dLNormal1.4-4.0Ohio[facility] Berger HospitalComment on above:Performed By: #### [id number] #### [facility] [address], [place] [address]Nkxmfmr [Mass/Vol]7.0 g/dLNormal6.0-7.8Ohio[facility] Berger HospitalComment on above:Performed By: #### [id number] #### [facility] [address], [place] [address]Gqkvou Levelon 52-86-7254Xvdztd [Catalytic activity/Vol]18 U/L Mpqswm75-43GowvaqOhiohealth Berger HospitalComment on above:Performed By: #### [id number] #### [facility] [address], [place] [address]UK with Cult Rflxon 20-46-8994Mcltreefs Ql (U)NegativeNormal NegativeOhiohealth Berger HospitalComment on above:Performed By: #### [id number] #### [facility] [address], [place] [address]Jvhyvhn (U)ClearNormalClearOn License Of [facility] Centerer [facility] Shock Trauma CenterComment on above:Performed By: #### [id number] #### [facility] [address], [place] [address]Ucyvl (U)ColorlessAbnormalYellowOhiohealth Berger Hospital Comment on above:Result Comment: Microscopic readings are only performed on those samples that meet specific criteria set forth by [facility].Performed By: #### [id number] #### [facility] [address], [place] [address]Dzbryip Ql (U)NegativeNormalNegKindred Hospital Dayton Comment on above:Performed By: #### [id number] #### [facility] [address], [place] [address]Uxbxzunylk Auto test strip (U) [Mass/Vol]NegativeNormalNegative [facility] HospitalComment on above:Performed By: #### [id number] #### [facility] [address], [place] [address]Coosgii Auto test strip Ql (U)NegativeNormalNegativeOhiohealth Berger HospitalComment on above:Performed By: #### [id number] #### [facility] [address] [place] [address], [place] [address]Oljgkfykp esterase Auto test strip Ql (U)NegativeNormalNegative [facility] HospitalComment on above:Performed By: #### [id number] #### [facility] [address], [place] [address]Jezqwjf Auto test strip Ql (U)NegativeNormalNegativeOhiohealth Berger HospitalComment on above:Performed By: #### [id number] #### [facility] [address], [place] [address]vV (U)7.5 [pH]Invalid Interpretation Code5.0-9.0Ohio[facility] Berger HospitalComment on above:Performed By: #### [id number] #### [facility] [address] [place] [address]Zqtfccf Ql (U)NegativeNormalNegKindred Hospital Dayton Comment on above:Performed By: #### [id number] #### [facility] [address] [place] [address]Kyetooxi gravity (U) [Rel density]1.008Invalid Interpretation Code1.005-1.030Ohiohealth Berger HospitalComment on above:Performed By: #### [id number] #### [facility] [address] [place] [address]Syueezcdkblx (U) [Mass/Vol]NegativeNormalNegKindred Hospital DaytonComment on above:Performed By: #### [id number] #### [facility] [address] [place] [address]Voja of Urine collection methodClean [facility]Med[facility] Flower HospitalComment on above:Performed By: #### [id number] #### [facility] [address] [place] [address]FSCQEPAYLXKegrdxu By: SYSTEM SYSTEM on 91-99-4737Wqpuqegie Ql (U)NegativeNormalNegativemg/dLHARPER [facility] UA Auto SSClarity (U)Clear (12/24/23 2:48 PM)NormalClearFTM UA Auto SSColor (U)Colorless 1 *ABN* (12/24/23 2:48 PM)Invalid Interpretation CodeYellowFT UA Auto SSComment on above:Interpretive Data: Microscopic readings are only performed on those samples that meet specific criteria set forth by [facility].Glucose Ql (U)NegativeNormalNegativemg/dLFT UA Auto SSHemoglobin Auto test strip (U) [Mass/Vol]NegativeNormalNegativemg/dLFT UA Auto SSKetones Auto test strip Ql (U)NegativeNormalNegativemg/dLHARPER COUNTY COMM[facility] UA Auto SSLeukocyte esterase Auto test strip Ql (U)NegativeNormalNegativeLeu/uLFT UA Auto SS Nitrite Auto test strip Ql (U)NegativeNormalNegativemg/dLHARPER COUNTY COMM[facility] UA Auto SSpH (U) 7.5 *NA* (12/24/23 2:48 PM)Invalid Interpretation Code5.0 - 9.0[facility] UA Auto SSProtein Ql (U)NegativeNormalNegativemg/dLHARPER COUNTY COMM[facility]ITY [facility] UA Auto SSSpecific gravity (U) [Rel density] 1.008 *NA* (12/24/23 2:48 PM)Invalid Interpretation Code1.005 - 1.030[facility] UA Auto SS Urobilinogen (U) [Mass/Vol]NegativeNormalNegativemg/dLHARPER COUNTY COMM[facility]ITY [facility] UA Auto SSURINALYSIS Ordered By: Deepa Mccormack on 67-25-3814IX Spec DescClean Catch (12/24/23 2:48 PM)NormalHARPER COUNTY COMMUNITY HOSPITAL – [facility] UA Auto SSeGFRon 99-62-2462vMZN288 mL/min/1.73 m2 Normal>=59Fisher [facility] Shock Trauma CenterComment on above:Performed By: #### [id number] #### [facility] Laboratory [address], [place] [address]Smxph-2-Enqkqrphiqonx 80-63-3744SNI [Mass/Vol]4 ng/mLNormal0-9 [facility] Memorial HospitalComment on above:Order Comment: AFP testing is performed by chemiluminescent immunoassay using the Siemens TidalScalellica.Values obtained with different analyte methods cannot be used interchangeably. This test can be used as an adjunct in the diagnosis and monitoring of AFP-producing tumors, including non-seminomatous germ cell tumors and hepatocellular carcinomas.Performed By: #### 1834-1 #### JOLENE Cantu ([id number]) [facility] ([facility]) [address] [place], [place] [address]Kpsthunpw.glucuronidated+Bilirubin.albumin boundon 12-23-2023 Bilirubin.direct [Mass/Vol]0.1 mg/dLNormal0.0-0.3[facility] Memorial HospitalComment on above:Performed By: #### 53866-7 #### JOLENE Cantu ([id number]) [facility] ([facility]) [address] [place], [place] [address]Zmpttacphhs tissue factor inducedon 60-43-4729ZQ Coag (PPP) [Time]11.0 sNormal9.8-12.8UnSamaritan North Health CenterComment on above:Performed By: #### 5902-2 #### GIOVANNI BURNETT ([id number]) [facility] ([facility]) [address] [place], [place] [address]Gjactvqiqljig metabolic 2000 panelon 43-91-3799Ymnumlk BCP dye [Mass/Vol]4.0 g/dLNormal3.4-5.0UnSamaritan North Health Center Comment on above:Performed By: #### 03993-4 #### JOLENE Cantu ([id number]) [facility] ([facility]) [id number] [place] [address]ODY [Catalytic activity/Vol]79 U/SRiqeow17-539EbvkyuluvoSamaritan North Health CenterComment on above:Performed By: #### 31128-3 #### JOLENE Cantu ([id number]) [facility] ([facility]) [address] [place] [address]ZQE With P-5'-P [Catalytic activity/Vol]19 U/LNormal7-45 [facility] HospitalComment on above:Result Comment: Patients treated with Sulfasalazine may generate falsely decreased results for ALT.Performed By: #### 60693-7 #### JOLENE Cantu ([id number]) [facility] ([facility]) [address] [place], [place] [address]Iuoqz gap [Moles/Vol]11 mmol/SMqcnho80-36BrswkthtyeSamaritan North Health CenterComment on above:Performed By: #### 25320-8 #### JOLENE Cantu (91405) [facility] ([facility]) [address] [place], [place] [address]AJN With P-5'-P [Catalytic activity/Vol]20 U/LNormal9-39 [facility] HospitalComment on above:Performed By: #### 99796-2 #### JOLENE Cantu (05463) [facility] ([facility]) [address] [place], [place] [address]Wexojbnym [Mass/Vol]0.2 mg/dLNormal0.0-1.2UnSamaritan North Health CenterComment on above:Performed By: #### 59390-2 #### JOLENE Canut ([id number]) [facility] ([facility]) [address] [place], [place] [address]Mpxjfvt [Mass/Vol]8.5 mg/dLLow8.6-10.3UnSamaritan North Health CenterComment on above:Performed By: #### 13292-9 #### JOLENE Cantu ([id number]) [facility] ([facility]) [address] [place], [place] [address]Zpgvgqpd [Moles/Vol]105 mmol/NLulkyv63-996DiuhnaqlvxSamaritan North Health CenterComment on above:Performed By: #### 62825-4 #### JOLENE Cantu ([id number]) [facility] ([facility]) [address] [place], [place] [address]SG3 [Moles/Vol]28 mmol/HRxsefa31-90SqkmxvqqbtSamaritan North Health CenterComment on above:Performed By: #### 92354-6 #### JOLENE Cantu (05758) [facility] ([facility]) [address] [place], [place] [address]Gccwgznjqk [Mass/Vol]0.83 mg/dLNormal0.50-1.05UnSamaritan North Health CenterComment on above:Performed By: #### 02153-6 #### JOLENE Cantu (28525) [facility] ([facility]) [address] [place], [place] [address]Sytfckrolc filtration rate/1.73 sq M.iccuiioib96 mL/min/1.73m*2Normal>60UnSamaritan North Health CenterComment on above:Result Comment: Calculations of estimated GFR are performed using the 2020 CKD-EPI Study Refit equation without the race variable for the IDMS-Traceable creatinine methods. https://jasn.asnjournals.org/content//ASN.7898169562Zqffdespw By: #### 60468-3 #### JOLENE Cantu ([id number]) [facility] ([facility]) [address] [place] [address]Uhfeqco [Mass/Vol]87 mg/hQNvijgo88-82VmjfppjbbkMemorial Health System Marietta Memorial HospitalComment on above:Performed By: #### 06418-9 #### JOLENE Cantu (48814) [facility] ([facility]) [address] [place] [address]Duuwnxtoo [Moles/Vol]4.6 mmol/LNormal3.5-5.3[facility] Memorial HospitalComment on above:Performed By: #### 86448-6 #### JOLENE Cantu (08644) [facility] ([facility]) [address] [place] [address]Xppgufp [Mass/Vol]6.3 g/dLLow6.4-8.2UnSamaritan North Health CenterComment on above:Performed By: #### 37652-4 #### JOLENE Cantu (65119) [facility] ([facility]) [address] [place] [address]Qeanzi [Moles/Vol]139 mmol/VPuntfd053-451GjcpucehopSamaritan North Health CenterComment on above:Performed By: #### 99925-1 #### JOLENE Cantu (86952) [facility] ([facility]) [address] [place] [address]Mvoh nitrogen [Mass/Vol]10 mg/dLNormal6-23[facility] Memorial HospitalComment on above:Performed By: #### 30188-3 #### JOLENE Cantu ([id number]) [facility] ([facility]) [address] [place] [address]ZA Coag (PPP) [Time]on 68-32-0816JSS Coag (PPP) [Relative time]0.1Auhgce2.9-1.1[facility] Memorial HospitalComment on above:Performed By: #### 5902-2 #### DAVILA LEX ([id number]) [facility] ([facility]) [address] [place], [place] [address]BC ABDOMEN LIMITED LIVERon 41-34-6403CH ABDOMEN LIMITED LIVER Interpreted By: Harshad Tran, STUDY: US ABDOMEN LIMITED LIVER; 12/23/2023 2:39 pm INDICATION: Signs/Symptoms:Liver cancer screening. ,B18.2 Chronic viral hepatitis C (Multi) COMPARISON: None. ACCESSION NUMBER(S): [id number] ORDERING CLINICIAN: CHIDI JOSEPH TECHNIQUE: Multiple images [...] Harshad Tran 12/24/2023 6:42 AM Dictation workstation: [id number] HealthcareCT LUMBAR SPINE WO IV CONTRASTon 95-02-5670WH LUMBAR SPINE WO IV CONTRAST Interpreted By: Tomás Hercules, STUDY: CT LUMBAR SPINE WO IV CONTRAST; 12/21/2023 10:01 pm INDICATION: Signs/Symptoms:fell, injured lower back. COMPARISON: MR lumbar spine 12/18/2023 ACCESSION NUMBER(S): [id number] ORDERING CLINICIAN: FRANCISCO J DALEY TECHNIQUE: Axial [...] Tomás Hercules 12/21/2023 10:40 PM Dictation workstation: [id number]d Medical CenterCT Lumbar spine WO contraston 71-89-6650Ki acute fracture or traumatic subluxation of the lumbar spine. Lumbar spondylosis most pronounced at L4/L5. MACRO: None. Signed by: Tomás Hercules 12/21/2023 10:40 PM Dictation workstation: [id number] MMODALInterpreted By: Tomás Hercules, STUDY: CT LUMBAR SPINE WO IV CONTRAST; 12/21/2023 10:01 pm INDICATION: Signs/Symptoms:fell, injured lower back. COMPARISON: MR lumbar spine 12/18/2023 ACCESSION NUMBER(S): [id number] ORDERING CLINICIAN: FRANCISCO J DALEY TECHNIQUE: Axial [...] prevertebral soft tissue swelling. OTHER FINDINGS: None. MMODALTomás Hercules MD - 12/21/2023 Interpreted By: Tomás Hercules, STUDY: CT LUMBAR SPINE WO IV CONTRAST; 12/21/2023 10:01 pm INDICATION: Signs/Symptoms:fell, injured lower back. COMPARISON: MR lumbar spine 12/18/2023 ACCESSION NUMBER(S): [id number] ORDERING CLINICIAN: FRANCISCO J DALEY TECHNIQUE: Axial [...] Tomás Hercules 12/21/2023 10:40 PM Dictation workstation: [id number] [facility] Work Phone: Radiology Study observation (narrative)[facility] Work Phone: CT Lumbar spine WO contrastOrdered By: Tomás Hercules on 58-08-3155ThmslpkdziWood County Hospital Work Phone: ED Clinical Summaryon 21-00-6378[place] [address] ED Clinical Summary Person Information Name: Jerad Tracy/[facility] Age: 48 Years : 1975 Sex: Female PCP: Marital Status: Phone: Race: White Ethnicity: Not or Language: Malagasy Visit Reason: Back pain; Back Pain Acuity: 4 Enc Type: Emergency Med Service: Emergency Medicine Arrival: 12/20/2023 14:17:06 Discharge: 12/20/2023 15:29:00 LOS: 000 01:12 Checkin: 12/20/2023 14:17:06 Checkout: 12/20/2023 15:29:00 Dispo Type: Home or Self Care Address: [address] [place] [phone] Provider Notes: Diagnosis: 1:Chronic back pain Problems [...] for 7 Days. Refills: 0. Last Dose: esomeprazole (NexIUM 20 mg oral delayed release capsule) 1 Capsules Oral (given by mouth) every day. Last Dose: methylPREDNISolone (Medrol Dosepak 4 mg oral tablet) 1 Packets Oral (given by mouth) As Indicated for 6 Days. as directed on package labeling. Refills: 0. Last Dose: ondansetron (Zofran 4 mg oral tablet) 1 Tabs Oral (given by mouth) every 8 hours as needed as needed for nausea/vomiting. Refills: 0. Last Dose: Other Medications dicyclomine (Bentyl 10 mg oral [...] Self Patient Education Information: BACK CARE TIPS [facility] Poison Help line: . [facility] Hotline: [place] Tobacco Quit Line: [place], [place]) [address]: [phone] [facility] ([place], [place]) [address]: [phone] [facility] [address] [place], [place]: [phone] [facility] Medical CenterED Note-Physicianon 28-26-4962WI Note-Physician Chief Complaint c/o lower back pain [...] in this area. Patient reports that she justneeds to be able to get back home. [...] nausea, vomiting, or diarrhea. Heart sounds are S1- S2. Lung sounds are clear throughout. Review of [...] oriented 48-year-old female presenting to the emergency departmentwith complaints of low back pain. Patient reports that every time she comes to her son she ends up with this back pain. She is not from this area but her son does live in this area. Patient reports that she just needs to be able to get back home. This pain is chronic back pain but she needs to be ab le to sit to a car for an [...] injection of Dilaudid and of Toradol and thishas done very well for her and getting [...] questions or concerns. All were agreeable with thisplan of care. Shared decision making: _The results of pertinent diagnostic studies and exam findings were discussed. The patient's provisional diagnosis and plan of care were discussed with the patient and presentfamily. The patient and/or present family expressed understanding [...] Dose: 12/20/23 14:47:00 EDT, Dispense From Location: [facility], 12/20/23 14:47:00 EDT ketorolac, 30 mg, IM, Injection, Once, First Dose: 12/20/23 14:48:00 EDT, Stop Date: 12/20/23 14:48:00 EDT, Dispense From Location: [facility], 12/20/23 14:48:00 EDT Refresh vitals and sections [...] days Use:. Diagnostic Results Electronically signed by (more content not included)... [facility] GeneralExtra Urine Castro Tubeon 46-95-9762Kpnch Tube Hold for add-ons.[facility] HospitalComment on above:Auto resulted.[facility] HospitalNo Panel Informationon . Ongoing interval decrease in size of T2 [...] the cervical spine as detailed above, with rwfi-ba-wmzfjdez narrowing present at the level of C6-C7 [...] Nevarez . This study was interpreted at [place], [place]. MACRO: None Signed by: Bernadette Tapia 12/19/2023 2:07 AM Dictation workstation: [id number] MMODALInterpreted By: Bernadette Tapia, and Libby Cabrera STUDY: [...] spine dated 12/06/2023 and 11/13/2023;. ACCESSION NUMBER(S): [id number]; [id number]; [id number] ORDERING CLINICIAN: FATOU TELLEZ TECHNIQUE: Sagittal T1, [...] normal limits without evidence of STIR hyperintense edema or [...] C3-C4: Mild central disc protrusion encroaching the thecal sac without significant spinal canal or neural foraminal [...] flavum thickening and facet arthropathy results in uksy-os-ksxrjjfq spinal canal stenosis. Mild neural foraminal stenosis [...] L3-4: Facet arthropathy and ligamentum flavum thickening without significant spinal canal foraminal stenosis. L4-5: There is redemonstration of the circumferential disc bulge with super (more content not included)... Bernadette Coburn MD - 12/19/2023 Interpreted By: Bernadette Tapia and Afshari Mirak Sohrab STUDY: MR CERVICAL SPINE W AND WO [...] spine dated 12/06/2023 and 11/13/2023;. ACCESSION NUMBER(S): [id number]; [id number]; [id number] ORDERING CLINICIAN: FATOU TELLEZ TECHNIQUE: Sagittal T1, [...] normal limits without evidence of STIR hyperintense edema or [...] C3-C4: Mild central disc protrusion encroaching the thecal sac without significant spinal canal or neural foraminal [...] flavum thickening and facet arthropathy results in cfto-dm-jdkxqelw spinal canal stenosis. Mild neural foraminal stenosis [...] L3-4: Facet arthropathy and ligamentum flavum thickening without significant spinal canal foraminal stenosis. L4-5: There is redemonstration o (more content not included)...[facility] Work Phone: No Panel InformationOrdered By: Bernadette Tapia on 45-31-1686HffnwlqtexWood County Hospital Work Phone: c reactive proteinon 84-66-2604XQK [Mass/Vol]0.80 mg/dLNormal<1.00UnSamaritan North Health CenterComment on above: Performed By: #### 1988-5 #### JOLENE Cantu ([id number]) [facility] ([facility]) [id number] [place] [address]R-novtlnqp proteinon 90-01-5587LZN [Mass/Vol]0.80 mg/dLNINF - 1.00 mg/dLUnAultman Alliance Community Hospital W Auto Differential panel (Bld) on 51-02-9312Rcpnnlxyv (Bld) [#/Vol]0.01 10*3/uLUnWood County HospitalBasophils/100 WBC (Bld)0.1 %0.0 - 2.0 %[facility] Memorial HospitalEosinophils (Bld) [#/Vol]0.14 10*3/[facility] Eosinophils/100 WBC (Bld)1.5 %0.0 - 6.0 %[facility] Erythrocyte distribution width (RBC) [Ratio]12.8 %11.5 - 14.5 %[facility] Memorial HospitalHematocrit (Bld) [Volume fraction]42.2 %36.0 - 46.0 % [facility] HospitalHemoglobin (Bld) [Mass/Vol]14.0 g/dL12.0 - 16.0 g/dLUnWood County HospitalImchristian hospital granulocytes (Bld) [#/Vol]0.05 10*3/[facility] HospitalImchristian hospital granulocytes/100 WBC (Bld)0.5 % 0.0 - 0.9 %[facility] on above:Immature Granulocyte Count (IG) includes promyelocytes, myelocytes and metamyelocytes but does not include bands. Percent differential counts (%) should be interpreted in the context of the absolute cell counts (cells/UL).Lymphocytes (Bld) [#/Vol] 1.77 10*3/[facility] HospitalLymphocytes/100 WBC (Bld)18.6 %13.0 - 44.0 %[facility] ShawH (RBC) [Entitic mass]30.2 pg26.0 - 34.[address] Joseph Warren HospitalHC (RBC) [Mass/Vol]33.2 g/dL32.0 - 36.0 g/dLSelect Medical [facility] Clinic Rehabilitation Hospital, Edwin ShawV (RBC) [Entitic vol]91 fL80 - 100 fLUniShelby Memorial HospitalMonocytes (Bld) [#/Vol]0.61 10*3/[facility] HospitalMonocytes/100 WBC (Bld)6.4 %2.0 - 10.0 %[facility] HospitalNeutrophils (Bld) [#/Vol]6.96 10*3/[facility] on above:Percent differential counts (%) should be interpreted in the context of the absolute cell counts (cells/uL). Neutrophils/100 WBC (Bld)72.9 %40.0 - 80.0 %[facility] Nucleated RBC/100 WBC (Bld) [Ratio]0.0 %[facility] Platelets (Bld) [#/Vol]365 10*3/[facility] HospitalRBC (Bld) [#/Vol]4.63 10*6/[facility] HospitalWBC (Bld) [#/Vol]9.5 10*3/uL [facility] HospitalUnWood County HospitalBasophils (Bld) [#/Vol]0.01 x10*3/uLNormal0.00-0.10[facility] HospitalComment on above:Performed By: #### 28786-8 #### JOLENE Cantu ([id number]) [facility] ([facility]) [address] [place] [address] 33177Zwszrgirl/100 WBC (Bld)0.1 %Normal0.0-2.0UnSamaritan North Health CenterComment on above:Performed By: #### 64066-0 #### JOLENE Cantu ([id number]) [facility] ([facility]) [address] [place] [address] 89189Odsbwbxlexf (Bld) [#/Vol]0.14 x10*3/uLNormal0.00-0.70 [facility] Memorial HospitalComment on above:Performed By: #### 96623-3 #### JOLENE Cantu ([id number]) [facility] ([facility]) [address] [place] [address] 88714Vqfupsxmjvt/100 WBC (Bld)1.5 %Normal0.0-6.0UnSamaritan North Health CenterComment on above:Performed By: #### 78880-5 #### JOLENE Cantu ([id number]) [facility] ([facility]) [address] [place] [address] 18577Hrdlkbgtjzp distribution width (RBC) [Ratio]12.8 %Normal 11.5-14.5[facility] Memorial HospitalComment on above:Performed By: #### 76491-2 #### JOLENE Cantu ([id number]) [facility] ([facility]) [address] [place] [address] 75507Lunwyeihee (Bld) [Volume fraction]42.2 %Rauimm25.0-46.0 [facility] Memorial HospitalComment on above:Performed By: #### 83096-9 #### JOLENE Cantu ([id number]) [facility] ([facility]) [address] [place] [address] 89908Tpjlyxzbxg (Bld) [Mass/Vol]14.0 g/tWWvjoim54.0-16.0[facility] HospitalComment on above:Performed By: #### 15628-2 #### JOLENE Cantu ([id number]) [facility] ([facility]) [address] [place] [address] 81015Txikyeae granulocytes (Bld) [#/Vol]0.05 x10*3/uLNormal 0.00-0.70UnSamaritan North Health CenterComment on above:Performed By: #### 72937-7 #### JOLENE Cantu ([id number]) [facility] ([facility]) [address] [place] [address] 37185Czcwnbkd granulocytes/100 WBC (Bld)0.5 %Normal0.0-0.9 [facility] Memorial HospitalComment on above:Result Comment: Immature Granulocyte Count (IG) includes promyelocytes, myelocytes and metamyelocytes but does not include bands. Percent differential counts (%) should be interpreted in the context of the absolute cell counts (cells/UL). Performed By: #### 72267-6 #### JOLENE Cantu ([id number]) [facility] ([facility]) [address] [place] [address] 86612Aarpywyndxk (Bld) [#/Vol]1.77 x10*3/uLNormal1.20-4.80 [facility] HospitalComment on above:Performed By: #### 31412-7 #### JOLENE Cantu ([id number]) [facility] ([facility]) [address] [place], [place] [address]Tmkmndxkzkr/100 WBC (Bld)18.6 %Jbdxam20.0-44.0[facility] HospitalComment on above:Performed By: #### 07596-6 #### JOLENE Cantu ([id number]) [facility] ([facility]) [address] [place], [place] [address]FQQ (RBC) [Entitic mass]30.2 plEbxlzu54.0-34.0UnSamaritan North Health CenterComment on above:Performed By: #### 15916-9 #### JOLENE Cantu ([id number]) [facility] ([facility]) [address] [place] [address] 66797ANRO (RBC) [Mass/Vol]33.2 g/dGQqygby36.0-36.0UnSamaritan North Health CenterComment on above:Performed By: #### 25436-2 #### JOLENE Cantu (08688) [facility] ([facility]) [address] [place], [place] [address]JHS (RBC) [Entitic vol]91 nSVfhdoc25-575RlqsqzpaasSamaritan North Health CenterComment on above:Performed By: #### 51186-0 #### JOLENE Cantu (00393) [facility] ([facility]) [address] [place] [address] 01780Vtmayozgs (Bld) [#/Vol]0.61 x10*3/uLNormal0.10-1.00UnSamaritan North Health CenterComment on above:Performed By: #### 35263-3 #### JOLENE Cantu (82878) [facility] ([facility]) [address] [place], [place] [address]Sitccstmf/100 WBC (Bld)6.4 %Normal2.0-10.0UnSamaritan North Health CenterComment on above:Performed By: #### 10680-9 #### JOLENE Cantu (40436) [facility] ([facility]) [address] [place], [place] [address]Zlmvtgnzhbs (Bld) [#/Vol]6.96 x10*3/uLNormal1.20-7.70 [facility] Memorial HospitalComment on above:Result Comment: Percent differential counts (%) should be interpreted in the context of the absolute cell counts (cells/uL).Performed By: #### 13242-3 #### JOLENE Cantu (08503) [facility] ([facility]) [address] [place], [place] [address]Xesvgeunlsw/100 WBC (Bld)72.9 %Banjkb27.0-80.0UnSamaritan North Health CenterComment on above:Performed By: #### 16117-4 #### JOLENE Cantu (48063) [facility] ([facility]) [address] [place] [address] 86862Putljfimu RBC/100 WBC (Bld) [Ratio]0.0 /100 WBCsNormal0.0-0.0 [facility] HospitalComment on above:Performed By: #### 90487-4 #### JOLENE Cantu ([id number]) [facility] ([facility]) [address] [place] [address] 59735Bqysfygcj (Bld) [#/Vol]365 x10*3/fYQtlvmz086-775WeysbrnxkmSamaritan North Health CenterComment on above:Performed By: #### 61688-1 #### JOLENE Cantu (64089) [facility] ([facility]) [address] [place] [address] 29212UWY (Bld) [#/Vol]4.63 x10*6/uLNormal4.00-5.20UnSamaritan North Health CenterComment on above:Performed By: #### 21411-3 #### JOLENE Cantu ([id number]) [facility] ([facility]) [address] [place] [address] 61979ORR (Bld) [#/Vol]9.5 x10*3/uLNormal4.4-11.3UnSamaritan North Health CenterComment on above:Performed By: #### 76832-7 #### JOLENE Cantu ([id number]) [facility] ([facility]) [address] [place] [address] 32878RHO [Mass/Vol]on 93-44-0985Lvjedecjwmaraq and review of laboratory resultsNoProtestant Deaconess HospitalComprehensive metabolic 2000 panelon 51-48-0934Wtpylfc BCP dye [Mass/Vol]4.3 g/dL3.4 - 5.0 g/dL [facility] HospitalALP [Catalytic activity/Vol]70 U/L33 - 110 U/L [facility] With P-5'-P [Catalytic activity/Vol]19 U/L7 - 45 U/[facility] HospitalCommclaren [facility] [place] on above:Patients treated with Sulfasalazine may generate falsely decreased results for ALT.Anion gap [Moles/Vol]15 mmol/L10 - 20 mmol/[facility] HospitalAST With P-5'-P [Catalytic activity/Vol]18 U/L9 - 39 U/[facility] Bilirubin [Mass/Vol]0.5 mg/dL0.0 - 1.2 mg/dLUnWood County Hospital Calcium [Mass/Vol]9.2 mg/dL8.6 - 10.6 mg/dLUnWood County Hospital Chloride [Moles/Vol]101 mmol/L98 - 107 mmol/[facility] CO2 [Moles/Vol]24 mmol/L21 - 32 mmol/[facility] Creatinine [Mass/Vol]0.76 mg/dL0.50 - 1.05 mg/dLUnWood County HospitaleGFR- PINFUniShelby Memorial HospitalCommclaren northern [place] on above: Calculations of estimated GFR are performed using the 2020 CKD-EPI Study Refit equation without therace variable for the IDMS-Traceable creatinine methods. https://jasn.asnjournals.org/content//ASN.8881054488 Glucose [Mass/Vol]101 mg/fAKeyj28 - 99 mg/dLUnWood County Hospital Interpretation and review of laboratory resultsAbnoProtestant Deaconess HospitalPotassium [Moles/Vol]4.0 mmol/L3.5 - 5.3 mmol/[facility] HospitalProtein [Mass/Vol]7.5 g/dL6.4 - 8.2 g/dLJoint Township District Memorial HospitalSodium [Moles/Vol]136 mmol/L136 - 145 mmol/[facility] HospitalUrea nitrogen [Mass/Vol]10 mg/dL6 - 23 mg/dLJoint Township District Memorial HospitalAlbumin BCP dye [Mass/Vol]4.3 g/dLNormal3.4-5.0[facility] HospitalComment on above:Performed By: #### 53979-3 #### JOLENE Cantu ([id number]) [facility] ([facility]) [address] [place] [address] 32411LKP [Catalytic activity/Vol]70 U/MUzgjwc42-588LtqogapegyMemorial Health System Marietta Memorial HospitalComment on above:Performed By: #### 83916-8 #### JOLENE Cantu (73634) [facility] ([facility]) [address] [place] [address] 55756SLF With P-5'-P [Catalytic activity/Vol]19 U/LNormal7-45 [facility] Memorial HospitalComment on above:Result Comment: Patients treated with Sulfasalazine may generate falsely decreased results for ALT.Performed By: #### 33485-6 #### JOLENE Cantu ([id number]) [facility] ([facility]) [address] [place] [address] 50616Agbha gap [Moles/Vol]15 mmol/AKgiqqn72-65MlptiwlunnSamaritan North Health CenterComment on above:Performed By: #### 08426-0 #### JOLENE Cantu ([id number]) [facility] ([facility]) [address] [place] [address] 80310JTV With P-5'-P [Catalytic activity/Vol]18 U/LNormal9-39 [facility] HospitalComment on above:Performed By: #### 12288-9 #### JOLENE Cantu ([id number]) [facility] ([facility]) [address] [place], [place] [address]Kxthzhinh [Mass/Vol]0.5 mg/dLNormal0.0-1.2[facility] HospitalComment on above:Performed By: #### 50251-5 #### JOLENE Cantu (19597) [facility] ([facility]) [address] [place] [address] 65502Wpvhekq [Mass/Vol]9.2 mg/dLNormal8.6-10.6UnSamaritan North Health CenterComment on above:Performed By: #### 56927-6 #### JOLENE Cantu (05486) [facility] ([facility]) [address] [place] [address] 04584Tsdvruod [Moles/Vol]101 mmol/PQlyywn78-469LyjfvghiufSamaritan North Health CenterComment on above:Performed By: #### 40233-9 #### JOLENE Cantu (49346) [facility] ([facility]) [address] [place] [address] 24730RE2 [Moles/Vol]24 mmol/HZlvehh01-66JegnayjnrbSamaritan North Health CenterComment on above:Performed By: #### 53192-4 #### JOLENE Cantu ([id number]) [facility] ([facility]) [address] [place] [address] 15585Hicaaacoek [Mass/Vol]0.76 mg/dLNormal0.50-1.05UnSamaritan North Health CenterComment on above:Performed By: #### 02001-8 #### JOLENE Cantu (13552) [facility] ([facility]) [address] [place] [address] 24141OMB/1.73 sq M.predicted MDRD (S/P/Bld) [Vol rate/Area] mL/min/{1.73_m2}Normal>60UnSamaritan North Health CenterComment on above:Result Comment: Calculations of estimated GFR are performed using the 2020 CKD-EPI Study Refit equation without the race variable for the IDMS-Traceable creatinine methods. https://jasn.asnjournals.org/content/early//ASN.4923051358Nmcexadhz By: #### 03214-0 #### JOLENE Cantu (18541) [facility] ([facility]) [address] [place] [address] 21635Fvzlnox [Mass/Vol]101 mg/mKBmqa21-98PywdtjzxiaMemorial Health System Marietta Memorial HospitalComment on above:Performed By: #### 36750-4 #### JOLENE Cantu ([id number]) [facility] ([facility]) [address] [place] [address] 77418Beenzsldx [Moles/Vol]4.0 mmol/LNormal3.5-5.3[facility] HospitalComment on above:Performed By: #### 83020-7 #### JOLENE Cantu ([id number]) [facility] ([facility]) [address] [place] [address] 45287Xveplcn [Mass/Vol]7.5 g/dLNormal6.4-8.2[facility] HospitalComment on above:Performed By: #### 54663-6 #### JOLENE Cantu ([id number]) [facility] ([facility]) [address] [place] [address] 47076Cmtkwa [Moles/Vol]136 mmol/IAhcouo720-179IpmvorhnfiMemorial Health System Marietta Memorial HospitalComment on above:Performed By: #### 98124-5 #### JOLENE Cantu (64062) [facility] ([facility]) [address] [place] [address] 86282Gunn nitrogen [Mass/Vol]10 mg/dLNormal6-23[facility] HospitalComment on above:Performed By: #### 08294-8 #### JOLENE Cantu ([id number]) [facility] ([facility]) [address] [place] [address] 09891NEE Westergren method (Bld) [Velocity]on 61-47-7100ZLE (Bld) [Velocity]51 mm/hHigh0 - 20 mm/[facility] HospitalInterpretation and review of laboratory resultsAbnormalUniProMedica Flower HospitalESR (Bld) [Velocity]51 mm/hHigh0-20[facility] HospitalComment on above:Performed By: #### 4537-7 #### JOLENE Cantu (23726) [facility] ([facility]) [address] [place], [place] [address]MR CERVICAL SPINE W AND WO IV CONTRASTon 83-70-6525YB CERVICAL SPINE W AND WO IV CONTRASTInterpreted By: Bernadette Tapia, and Libby Cabrera STUDY: [...] spine dated 12/06/2023 and 11/13/2023;. ACCESSION NUMBER(S): [id number]; [id number]; [id number] ORDERING CLINICIAN: FATOU TELLEZ TECHNIQUE: Sagittal T1, [...] normal limits without evidence of STIR hyperintense edema or [...] C3-C4: Mild central disc protrusion encroaching the thecal sac without significant spinal canal or neural foraminal [...] flavum thickening and facet arthropathy results in oepm-tw-lccevovf spinal canal stenosis. Mild neural foraminal stenosis [...] L3-4: Facet arthropathy and ligamentum flavum thickening without significant spinal canal foraminal stenosis. L4-5: There is redemonstration of the circumferential disc bulge with superimposed left subarticular/para foraminal disc herniation w (more content not included)...[facility] HospitalMR LUMBAR SP[facility] W AND WO IV CONTRASTon [id number] LUMBAR SPINE W AND WO IV CONTRAST Interpreted By: Bernadette Tapia, and Libby Cabrera [...] spine dated 12/06/2023 and 11/13/2023;. ACCESSION NUMBER(S): [id number]; [id number]; [id number] ORDERING CLINICIAN: FATOU TELLEZ TECHNIQUE: Sagittal T1, [...] normal limits without evidence of STIR hyperintense edema or [...] C3-C4: Mild central disc protrusion encroaching the thecal sac without significant spinal canal or neural foraminal [...] flavum thickening and facet arthropathy results in szzk-gn-pfcjkyyz spinal canal stenosis. Mild neural foraminal stenosis [...] L3-4: Facet arthropathy and ligamentum flavum thickening without significant spinal canal foraminal stenosis. L4-5: There is redemonstration of the circumferential disc bulge with superimposed left subarticular/para foraminal disc herniation w (more content not included)...[facility] HospitalMR THORACIC SPINE W AND WO IV CONTRASTon [id number] THORACIC SPINE W AND WO IV CONTRAST Interpreted By: Bernadette Tapia, and Libby Cabrera [...] spine dated 12/06/2023 and 11/13/2023;. ACCESSION NUMBER(S): [id number]; [id number]; [id number] ORDERING CLINICIAN: FATOU TELLEZ TECHNIQUE: Sagittal T1, [...] normal limits without evidence of STIR hyperintense edema or [...] C3-C4: Mild central disc protrusion encroaching the thecal sac without significant spinal canal or neural foraminal [...] flavum thickening and facet arthropathy results in gpbn-pk-xmxilgez spinal canal stenosis. Mild neural foraminal stenosis [...] L3-4: Facet arthropathy and ligamentum flavum thickening without significant spinal canal foraminal stenosis. L4-5: There is redemonstration of the circumferential disc bulge with superimposed left subarticular/para foraminal disc herniation w (more content not included)...NormalUnSamaritan North Health CenterNo Panel Informationon [id number] Study observation (narrative)[facility] Work Phone: UnWood County HospitalUrinalysis complete W Reflex Culture panel (U)on [id number] (U)ClearClearUnWood County HospitalBilirubin (U) [Mass/Vol]NegativeNEGATIVEUnWood County HospitalColor (U)ColorlessAbnormalLight-Yellow, Yellow, Dark-YellowUnWood County HospitalGlucose Auto test strip (U) [Mass/Vol]NormalNormal mg/dLUnWood County HospitalInterpretation and review of laboratory resultsAbnormalUniversSelect Specialty Hospital - EvansvilleKetones (U) [Mass/Vol]NegativeNEGATIVE mg/dLUnWood County HospitalLeukocyte esterase Auto test strip Ql (U)NegativeNEGATIVEUnWood County Hospital Nitrite Auto test strip Ql (U)NegativeNEGATIVEUnWood County Hospital pH (U)7.5 [pH]5.0, 5.5, 6.0, 6.5, 7.0, 7.5, 8.0UnWood County Hospital Protein (U) [Mass/Vol]NegativeNEGATIVE, 10 (TRACE), 20 (TRACE) mg/dLJoint Township District Memorial HospitalRBC (U) [#/Vol]NegativeNEGATIVEJoint Township District Memorial HospitalSpecific gravity (U) [Rel density]1.062Rftmdrfo8.005 - 1.035UnWood County HospitalUrobilinogen (U) [Mass/Vol]NormalNormal mg/dLUnWood County HospitalUnWood County HospitalAppearance (U)ClearNormal ClearMemorial Health System Marietta Memorial HospitalComment on above:Performed By: #### 91479-4 #### JOLENE Cantu ([id number]) [facility] ([facility]) [address] [place] [address] 05665Ycnmtbmxw (U) [Mass/Vol]NegativeNormalNEGSelect Medical OhioHealth Rehabilitation HospitalComment on above:Performed By: #### 66975-3 #### JOLENE Cantu (56700) [facility] ([facility]) [address] [place] [address] 16631Qjthv (U)ColorlessNormalLight-Yellow, Yellow, Dark-Yellow [facility] HospitalComment on above:Performed By: #### 33312-8 #### JOLENE Cantu ([id number]) [facility] ([facility]) [address] [place] [address] 00141Rqhwbbq Auto test strip (U) [Mass/Vol]NormalNormalNormal [facility] HospitalComment on above:Performed By: #### 58155-0 #### JOLENE Cantu ([id number]) [facility] ([facility]) [address] [place] [address] 34676Nuhitib (U) [Mass/Vol]NegativeNormalNEGATIVEMemorial Health System Marietta Memorial HospitalComment on above:Performed By: #### 82515-0 #### JOLENE Cantu (16996) [facility] ([facility]) [address] [place] [address] 30123Xcncjqugn esterase Auto test strip Ql (U)NegativeNormal NEGATIVEMemorial Health System Marietta Memorial HospitalComment on above:Performed By: #### 91909-0 #### JOLENE Cantu (80633) [facility] ([facility]) [address] [place] [address] 05949Mmhgyzs Auto test strip Ql (U)NegativeNormalNEGATIVE [facility] HospitalComment on above:Performed By: #### 83271-1 #### JOLENE Cantu (82611) [facility] ([facility]) [address] [place] [address] 58090rZ (U)7.5 [pH]Normal5.0, 5.5, 6.0, 6.5, 7.0, 7.5, 8.0 [facility] HospitalComment on above:Performed By: #### 49228-6 #### JOLENE Cantu (50601) [facility] ([facility]) [address] [place] [address] 05082Pkyttaa (U) [Mass/Vol]NegativeNormalNEGATIVE, 10 (TRACE), 20 (TRACE)[facility] HospitalComment on above:Performed By: #### 45065-1 #### JOLENE Cantu ([id number]) [facility] ([facility]) [address] [place] [address] 43691BVJ (U) [#/Vol]NegativeNormalNEGATIVEUnSamaritan North Health CenterComment on above:Performed By: #### 91083-8 #### JOLENE Cantu ([id number]) [facility] ([facility]) [address] [place] [address] 49845Bmjrvmno gravity (U) [Rel density]1.726Itqbrk0.005-1.035 [facility] HospitalComment on above:Performed By: #### 05333-5 #### JOLENE Cantu ([id number]) [facility] ([facility]) [address] [place] [address] 00149Xbcjzryjburu (U) [Mass/Vol]NormalNormalNormalUniversMercy Health St. Elizabeth Boardman HospitalComment on above:Performed By: #### 92475-6 #### JOLENE Cantu (94820) [facility] ([facility]) [address] [place], [place] [address]RRK W Auto Differential panel (Bld)on 92-70-1236Zfjplqkaw (Bld) [#/Vol]0.01 10*3/[facility] HospitalBasophils/100 WBC (Bld)0.1 %0.0 - 2.0 %[facility] HospitalEosinophils (Bld) [#/Vol] 0.00 10*3/[facility]ers HospitalEosinophils/100 WBC (Bld)0.0 %0.0 - 6.0 %[facility] HospitalErythrocyte distribution width (RBC) [Ratio]13.2 %11.5 - 14.5 %[facility] HospitalHematocrit (Bld) [Volume fraction]40.3 %36.0 - 46.0 %[facility] HospitalHemoglobin (Bld) [Mass/Vol]13.1 g/dL12.0 - 16.0 g/dLUnWood County Hospital Immature granulocytes (Bld) [#/Vol]0.05 10*3/[facility] Immature granulocytes/100 WBC (Bld)0.6 %0.0 - 0.9 %[facility] HospitalComment on above:Immature Granulocyte Count (IG) includes promyelocytes, myelocytes and metamyelocytes but does not include bands. Percent differential counts (%) should be interpreted in the context of the absolute c ell counts (cells/UL).Interpretation and review of laboratory resultsAbnormal [facility] HospitalLymphocytes (Bld) [#/Vol]0.89 10*3/uLLow [facility] HospitalLymphocytes/100 WBC (Bld)11.4 %13.0 - 44.0 % [facility] HospitalMCH (RBC) [Entitic mass]31.0 pg26.0 - 34.0 pg [facility] HospitalMCHC (RBC) [Mass/Vol]32.5 g/dL32.0 - 36.0 g/dL [facility] HospitalMCV (RBC) [Entitic vol]95 fL80 - 100 fL [facility] [facility] HospitalMonocytes (Bld) [#/Vol]0.24 10*3/[facility] [facility] HospitalMonocytes/100 WBC (Bld)3.1 %2.0 - 10.0 %[facility] HospitalNeutrophils (Bld) [#/Vol]6.64 10*3/[place] [facility] HospitalComment on above:Percent differential counts (%) should be interpreted in the context of the absolute cell counts (cells/uL). Neutrophils/100 WBC (Bld)84.8 %40.0 - 80.0 %[facility] Nucleated RBC/100 WBC (Bld) [Ratio]0.0 %[facility] Platelets (Bld) [#/Vol]303 10*3/[facility] [facility] HospitalRBC (Bld) [#/Vol]4.23 10*6/[facility] [facility] HospitalWBC (Bld) [#/Vol]7.8 10*3/uL [facility] HospitalUnWood County HospitalBasophils (Bld) [#/Vol]0.01 x10*3/uLNormal0.00-0.10Pro[facility]aconess HospitalComment on above:Performed By: #### 79078-2 #### SANTOSH BAI ([id number]) [facility] ([facility]) [address] [place], [place] [address]Zvszllorn/100 WBC (Bld)0.1 %Normal0.0-2.0UnBarnesville HospitalComment on above:Performed By: #### 66335-7 #### SANTOSH BAI (45715) [facility] ([facility]) [address] [place], [place] [address]Knkxbhlseke (Bld) [#/Vol]0.00 x10*3/uLNormal0.00-0.70 [facility] HospitalComment on above:Performed By: #### 58572-1 #### SANTOSH BAI (65038) [facility] ([facility]) [address] [place], [place] [address]Gdjhwmzryfz/100 WBC (Bld)0.0 %Normal0.0-6.0Pro[facility]aconess HospitalComment on above:Performed By: #### 95473-4 #### SANTOSH BAI (49772) [facility] ([facility]) [address] [place], [place] [address]Nbfgsyefmvr distribution width (RBC) [Ratio]13.2 %Normal 11.5-14.5UnBarnesville HospitalComment on above:Performed By: #### 04256-9 #### SANTOSH BAI (24853) [facility] ([facility]) [address] [place] [address]Mnknhbnlsj (Bld) [Volume fraction]40.3 %Zbmgps53.0-46.0 [facility] HospitalComment on above:Performed By: #### 13698-3 #### SANTOSH BAI (28903) [facility] ([facility]) [address] [place] [address]Rjjxqtkbni (Bld) [Mass/Vol]13.1 g/hWQynaop08.0-16.0UnBarnesville HospitalComment on above:Performed By: #### 04454-5 #### SANTOSH BAI (46781) [facility] ([facility]) [address] [place], [place] [address]Dlrycflt granulocytes (Bld) [#/Vol]0.05 x10*3/uLNormal 0.00-0.70UnBarnesville HospitalComment on above:Performed By: #### 49570-8 #### SANTOSH BAI (34639) [facility] ([facility]) [address] [place], [place] [address]Imskpnkp granulocytes/100 WBC (Bld)0.6 %Normal0.0-0.9 [facility]aconess HospitalComment on above:Result Comment: Immature Granulocyte Count (IG) includes promyelocytes, myelocytes and metamyelocytes but does not include bands. Percent differential counts (%) should be interpreted in the context of the absolute cell counts (cells/UL). Performed By: #### 86442-6 #### SANTOSH BAI (66409) [facility] ([facility]) [address] [place], [place] [address]Ieqwzlonngn (Bld) [#/Vol]0.89 x10*3/uLLow1.20-4.80UnBarnesville HospitalComment on above:Performed By: #### 78455-6 #### SANTOSH BAI (98972) [facility] ([facility]) [address] [place], [place] [address]Zqeqloqhlin/100 WBC (Bld)11.4 %Jfbiih80.0-44.0UnBarnesville HospitalComment on above:Performed By: #### 56516-7 #### SANTOSH BAI (40899) [facility] ([facility]) [address] [place] [id number] (RBC) [Entitic mass]31.0 dmKfhagd97.0-34.0UnBarnesville HospitalComment on above:Performed By: #### 71983-9 #### SANTOSH BAI (99747) [facility] ([facility]) [address] [place], [place] [address]CBAD (RBC) [Mass/Vol]32.5 g/cJHrycfg94.0-36.0UnBarnesville HospitalComment on above:Performed By: #### 28412-9 #### SANTOSH BAI (82479) [facility] ([facility]) [address] [place], [place] [address]YEE (RBC) [Entitic vol]95 sHKkxkuv87-811PhlszmnywlBarnesville HospitalComment on above:Performed By: #### 07862-8 #### SANTOSH BAI (61890) [facility] ([facility]) [address] [place], [place] [address]Jjlalcnwa (Bld) [#/Vol]0.24 x10*3/uLNormal0.10-1.00UnBarnesville HospitalComment on above:Performed By: #### 97110-1 #### SANTOSH BAI (07967) [facility] ([facility]) [address] [place], [place] [address]Eycokiweq/100 WBC (Bld)3.1 %Normal2.0-10.0UnBarnesville HospitalComment on above:Performed By: #### 80440-0 #### SANTOSH BAI (35584) [facility] ([facility]) [address] [place], [place] [address]Glkwsgafnld (Bld) [#/Vol]6.64 x10*3/uLNormal1.20-7.70 [facility] HospitalComment on above:Result Comment: Percent differential counts (%) should be interpreted in the context of the absolute cell counts (cells/uL).Performed By: #### 52135-0 #### SANTOSH BAI (31325) [facility] ([facility]) [address] [place], [place] [address]Vmdbwantltn/100 WBC (Bld)84.8 %Bwibty83.0-80.0Pro[facility]aconess HospitalComment on above:Performed By: #### 55563-1 #### SANTOSH BAI (09632) [facility] ([facility]) [address] [place], [place] [address]Khntweqms RBC/100 WBC (Bld) [Ratio]0.0 /100 WBCsNormal0.0-0.0 [facility] HospitalComment on above:Performed By: #### 43505-3 #### SANTOSH BAI (02914) [facility] ([facility]) [address] [place], [place] [address]Ayhmdpxeo (Bld) [#/Vol]303 x10*3/nISgofuo455-656NxupnhhmpxBarnesville HospitalComment on above:Performed By: #### 50669-9 #### SANTOSH BAI ([id number]) [facility] ([facility]) [address] [place], [place] [address]PIW (Bld) [#/Vol]4.23 x10*6/uLNormal4.00-5.20[facility]acon[facility] HospitalComment on above:Performed By: #### 23761-9 #### SANTOSH BAI (04686) [facility] ([facility]) [address] [place], [place] [address]ZOY (Bld) [#/Vol]7.8 x10*3/uLNormal4.4-11.3Pro[facility]aconess HospitalComment on above:Performed By: #### 42410-9 #### SANTOSH LI (64911) [facility] ([facility]) [address] [place], [place] [address]EH ABDOMEN PELVIS W IV CONTRASTon [id number] ABDOMEN PELVIS W IV CONTRASTInterpreted By: Allyson Schultz, STUDY: CT ABDOMEN PELVIS W IV CONTRAST; CT LUMBAR SPINE W IV CONTRAST; 12/15/2023 7:50 pm INDICATION: Signs/Symptoms:h/o spinal stim c/b infections with wound vac in place, pain to surrounding areas radiating to flanks. COMPARISON: 12/07/2023 CT abdomen/pelvis ACCESSION NUMBER(S): [id number]; [id number] ORDERING CLINICIAN: LILIA GERONIMO TECHNIQUE: Contiguous axial images of the [...] Allyson Schultz 12/15/2023 8:37 PM Dictation workstation: [id number] Hospital Cleveland WestCT LUMBAR SPINE W IV CONTRASTon [id number] LUMBAR SPINE W IV CONTRAST Interpreted By: Allyson Schultz, STUDY: CT ABDOMEN PELVIS W IV CONTRAST; CT LUMBAR SPINE W IV CONTRAST; 12/15/2023 7:50 pm INDICATION: Signs/Symptoms:h/o spinal stim c/b infections with wound vac in place, pain to surrounding areas radiating to flanks. COMPARISON: 12/07/2023 CT abdomen/pelvis ACCESSION NUMBER(S): [id number]; [id number] ORDERING CLINICIAN: LILIA GERONIMO TECHNIQUE: Contiguous axial images of the [...] Allyson Schultz 12/15/2023 8:37 PM Dictation workstation: [id number] Memorial HospitalComprehensive metabolic 2000 panelon 60-46-4844Emcmgyz BCP dye [Mass/Vol] 4.2 g/dL3.4 - 5.0 g/dLUnWood County HospitalALP [Catalytic activity/Vol]79 U/L33 - 110 U/[facility] HospitalALT With P-5'-P [Catalytic activity/Vol]21 U/L7 - 45 U/[place] on above:Patients treated with Sulfasalazine may generate falsely decreased results for ALT.Anion gap [Moles/Vol]11 mmol/L10 - 20 mmol/[facility] HospitalAST With P-5'-P [Catalytic activity/Vol]18 U/L9 - 39 U/[facility] HospitalBilirubin [Mass/Vol]0.2 mg/dL0.0 - 1.2 mg/dLUnWood County HospitalCalcium [Mass/Vol]8.5 mg/dLLow8.6 - 10.3 mg/dLUnWood County HospitalChloride [Moles/Vol]105 mmol/L98 - 107 mmol/[facility] HospitalCO2 [Moles/Vol]24 mmol/L21 - 32 mmol/[facility] HospitalCreatinine [Mass/Vol]0.73 mg/dL0.50 - 1.05 mg/dLUnWood County HospitaleGFR- PINFUniSuburban Community Hospital & [facility] on above:Calculations of estimated GFR are performed using the 2020 CKD-EPI Study Refit equation without therace variable for the IDMS-Traceable creatinine methods. https://jasn.asnjournals.org/content///ASN.4012897447 Glucose [Mass/Vol]114 mg/gJUynv89 - 99 mg/dLUnWood County Hospital Interpretation and review of laboratory resultsAbnoProtestant Deaconess HospitalPotassium [Moles/Vol]4.5 mmol/L3.5 - 5.3 mmol/[facility] HospitalProtein [Mass/Vol]7.2 g/dL6.4 - 8.2 g/dLUnWood County HospitalSodium [Moles/Vol]135 mmol/GAtu461 - 145 mmol/LUnWood County HospitalUrea nitrogen [Mass/Vol]12 mg/dL6 - 23 mg/dLJoint Township District Memorial HospitalAlbumin BCP dye [Mass/Vol]4.2 g/dLNormal3.4-5.0Pro[facility]acon[facility] HospitalComment on above:Performed By: #### 29454-6 #### SANTOSH BAI ([id number]) [facility] ([facility]) [address] [place], [place] [address]MQJ [Catalytic activity/Vol]79 U/XQshihe89-629QsmmgsmcapBarnesville HospitalComment on above:Performed By: #### 92449-0 #### SANTOSH BAI (78999) [facility] ([facility]) [address] [place], [place] [address] With P-5'-P [Catalytic activity/Vol]21 U/LNormal7-45 [facility]acon[facility] HospitalComment on above:Result Comment: Patients treated with Sulfasalazine may generate falsely decreased results for ALT.Performed By: #### 89128-0 #### SANTOSH BAI (18204) [facility] ([facility]) [address] [place], [place] [address]Qyuue gap [Moles/Vol]11 mmol/NNzygsx65-50ZqymyagcjeBarnesville HospitalComment on above:Performed By: #### 30895-4 #### SANTOSH BAI (87145) [facility] ([facility]) [address] [place], [place] [address]GVB With P-5'-P [Catalytic activity/Vol]18 U/LNormal9-39 [facility] HospitalComment on above:Performed By: #### 52088-8 #### SANTOSH BAI (44063) [facility] ([facility]) [address] [place], [place] [address]Slhzqzcds [Mass/Vol]0.2 mg/dLNormal0.0-1.2Pro[facility]aconess HospitalComment on above:Performed By: #### 26171-6 #### SANTOSH BAI (47222) [facility] ([facility]) [address] [place], [place] [address]Xnekbts [Mass/Vol]8.5 mg/dLLow8.6-10.3[facility]acon[facility] HospitalComment on above:Performed By: #### 22281-7 #### SANTOSH BAI (03977) [facility] ([facility]) [address] [place], [place] [address]Aohtaxpa [Moles/Vol]105 mmol/KMzwyvo28-765BzhgredjheBarnesville HospitalComment on above:Performed By: #### 87841-8 #### SANTOSH BAI (86681) [facility] ([facility]) [address] [place], [place] [address]OV3 [Moles/Vol]24 mmol/ZYpqrte41-98HozlzfrrkaBarnesville HospitalComment on above:Performed By: #### 07278-5 #### SANTOSH BAI (94399) [facility] ([facility]) [address] [place], [place] [address]Nqncdnowen [Mass/Vol]0.73 mg/dLNormal0.50-1.05UnBarnesville HospitalComment on above:Performed By: #### 87578-5 #### SANTOSH BAI (98953) [facility] ([facility]) [address] [place], [place] [address]KPX/1.73 sq M.predicted MDRD (S/P/Bld) [Vol rate/Area] mL/min/{1.73_m2}Normal>60UnBarnesville HospitalComment on above:Result Comment: Calculations of estimated GFR are performed using the 2020 CKD-EPI Study Refit equation without the race variable for the IDMS-Traceable creatinine methods. https://jasn.asnjournals.org/content//ASN.5380063828Dqiebkupu By: #### 93656-2 #### SANTOSH BAI (77725) [facility] ([facility]) [address] [place], [place] [address]Csuolkw [Mass/Vol]114 mg/jRPynp75-65HcktzskmwkBarnesville HospitalComment on above:Performed By: #### 63568-3 #### SANTOSH BAI (78863) [facility] ([facility]) [address] [place], [place] [address]Lcbkwuljf [Moles/Vol]4.5 mmol/LNormal3.5-5.3UnBarnesville HospitalComment on above:Performed By: #### 87407-6 #### SANTOSH BAI (63368) [facility] ([facility]) [address] [place], [place] [address]Tgqbfql [Mass/Vol]7.2 g/dLNormal6.4-8.2[facility]acon[facility] HospitalComment on above:Performed By: #### 43002-2 #### SANTOSH BAI (38197) [facility] ([facility]) [address] [place], [place] [address]Nxsgyy [Moles/Vol]135 mmol/WWun204-085ScdejogpdhBarnesville HospitalComment on above:Performed By: #### 42131-6 #### SANTOSH BAI (66739) [facility] ([facility]) [address] [place], [place] [address]Vscg nitrogen [Mass/Vol]12 mg/dLNormal6-23UnBarnesville HospitalComment on above:Performed By: #### 25173-9 #### SANTOSH BAI ([id number]) [facility] ([facility]) [address] [place], [place] [address]Jfqdcnbicza 03-08-9317Loxgfsttp [Mass/Vol]1.90 mg/dL1.60 - 2.40 mg/dLJoint Township District Memorial HospitalMagnesium [Mass/Vol]1.90 mg/dLNormal 1.60-2.40UnBarnesville HospitalComment on above:Performed By: #### 91728-0 #### SANTOSH BAI (84771) [facility] ([facility]) [address] [place], [place] [address]Agcrwraoa [Mass/Vol]on 38-89-1379Zyxysrdikjndqk and review of laboratory resultsNormalUniShelby Memorial HospitalNo Panel Informationon 52-12-8917Mmury VAC overlying a soft tissue ulceration in [...] Allyson Schultz 12/15/2023 8:37 PM Dictation workstation: [id number] MMODALInterpreted By: Allyson Schultz, STUDY: CT ABDOMEN PELVIS W IV CONTRAST; CT LUMBAR SPINE W IV CONTRAST; 12/15/2023 7:50 pm INDICATION: Signs/Symptoms:h/o spinal stim c/b infections with wound vac in place, pain to surrounding areas radiating to flanks. COMPARISON: 12/07/2023 CT abdomen/pelvis ACCESSION NUMBER(S): [id number]; [id number] ORDERING CLINICIAN: LILIA GERONIMO TECHNIQUE: Contiguous axial images of the [...] acute osseous abnormality. No suspicious osseous lesion. MMODALAllyson Schultz MD - 12/15/2023 Interpreted By: Allyson Schultz, STUDY: CT ABDOMEN PELVIS W IV CONTRAST; CT LUMBAR SPINE W IV CONTRAST; 12/15/2023 7:50 pm INDICATION: Signs/Symptoms:h/o spinal stim c/b infections with wound vac in place, pain to surrounding areas radiating to flanks. COMPARISON: 12/07/2023 CT abdomen/pelvis ACCESSION NUMBER(S): [id number]; [id number] ORDERING CLINICIAN: LILIA GERONIMO TECHNIQUE: Contiguous axial images of the [...] Allyson Schultz 12/15/2023 8:37 PM Dictation workstation: [id number] [facility] Work Phone: Radiology Study observation (narrative)[facility] Work Phone: UnWood County HospitalNo Panel Information Ordered By: Allyson Schultz on 99-20-9420WddsbtrjwrWood County Hospital Work Phone: PT and aPTT panel Coag (PPP)on 47-88-7292zVCR Coag (PPP) [Time]31 [facility] CenterINR Coag (PPP) [Relative time] 0.9 {INR}0.9 - 1.1[facility] HospitalInterpretation and review of laboratory resultsNormalUniShelby Memorial HospitalPT Coag (PPP) [Time] 10.5 [facility] Medical CenterThe APTT is no longer used for monitoring Unfractionated Heparin Therapy. For monitoring Heparin Therapy, use the Heparin Assay.[facility] HospitalUnWood County HospitalaPTT Coag (PPP) [Time]31 iVdyger60-39ZgdbabbiedBarnesville HospitalComment on above:Order Comment: The APTT is no longer used for monitoring Unfractionated Heparin Therapy. For monitoring Heparin Therapy, use the Heparin Assay.Performed By: #### 71789-7 #### SANTOSH ABI (65779) [facility] ([facility]) [address] [place], [place] [address]NLM Coag (PPP) [Relative time]0.3Ywicid6.9-1.1UnBarnesville HospitalComment on above:Order Comment: The APTT is no longer used for monitoring Unfractionated Heparin Therapy. For monitoring Heparin Therapy, use the Heparin Assay.Performed By: #### 65708-4 #### SANTOSH BAI (54045) [facility] ([facility]) [address] [place], [place] [address]LH Coag (PPP) [Time]10.5 sNormal9.8-12.8Pro[facility] Deaconess HospitalComment on above:Order Comment: The APTT is no longer used for monitoring Unfractionated Heparin Therapy. For monitoring Heparin Therapy, use the Heparin Assay.Performed By: #### 05368-7 #### SANTOSH BAI ([id number]) [facility] ([facility]) [address] [place] [id number] Note-Physicianon 46-55-7873GS Note-PhysicianED Note-Physician Basic Information Time Seen: Kristie Boss PA-C 12/13/2023 13:46 Chief Complaint Patient presents with wound vac placed to low lumbar on Saturday. Patient verbalized pain that started last night History of Present Illness This patient presents emergency department chief complaint of discomfort after having a wound VAC applied to her lower lumbar spine on Saturday. This was performed at [facility]. She states this was due to an infection after a surgery. She states is just very uncomfortable and she has some itching around the outer edges of the adhesive. Patient denies any fevers chills or sweats. No othernew complaints. Review of Systems Constitutional: Denies weight [...] production, wheezing, hemoptysis, shortness of breath, dyspnea onexertion Gastrointestinal: Denies abdominal pain, unintentional weight loss, difficulty swallowing, indigestion, bloating, cramping, loss of appetite, nausea, vomiting, diarrhea, constipation, hematochezia, melena Genitourinary: Denies any incontinence of urine, dysuria, hematuria, nocturia, polyuria, hesitancy,frequency, urgency, burning Musculoskeletal: Denies joint pain, morning [...] to application of the adhesive from this pointforward. I discussed with her we do not remove wound vacs unless there is a very good indication for this. At this time her wound VAC is performing as it should. I strongly recommended that the patient follow-up with [facility]. She states she does not want to drive all the way to [place]. I discussed with her she might want to contact them and see if she can be followed closer such as the [facility]. I discussed the discharge diagnosis, plan of care, home-going instructions and prescriptions with the patient. She is in agreement with the plan of care. Patient was dischargedhome in stable condition. She is to return [...] Refill(s) 0, each nostr (more content not included)...[facility]ark HospitalComment on above: Result Comment: Electronically Signed By: Kristie Boss PA-C\.br\Date and Time Signed: 12/13/23 14:15 EDT\.br\Electronically Co-Signed By: Jorge Mcintosh DO\.br\Date and Time Co-Signed: 12/14/23 07:22 EDTED Clinical Summaryon [id number] Clinical SummaryED Clinical Summary [place] [id number] ED Clinical Summary Person Information Name: JERAD TRACY Tasha/[facility]_[place] Age: 48 Years : 1975 Sex: Female Language: Malagasy PCP: Mayra Rincon Marital Status: Visit Id: Visit Reason: [...] 12/13/2023 14:18:11 12/13/2023 14:18:11 12/13/2023 14:18:11 ADDRESS: [address] [place] [id number] PHYS DOC NOTES: MEDICAL INFORMATION: Prescriptions Given: New Medications [employer] [facility], [address], [place] [id number], [phone] fluticasone nasal (Flonase 0.05 mg/inh [place]) 2 Sprays Topical every day. each nostril. [...] 0. PATIENT EDUCATION INFORMATION: Instructions: Allergies, Adult, Ulsy-zk-Snts Follow up: With: Address: When: Mayra Rosas [address], [address], [employer] [address] [address] Business (1) In 3 days 12/16/2023 DIAGNOSIS: 1:Allergic reaction to adhesiveNormalFishUniversity of Maryland Rehabilitation & [facility] Patient Summaryon [id number] Patient SummaryED Patient Summary [address] [address] Patient Discharge Instructions Person Information Name: JERAD TRACY Age: 48 Years Arrival Date: 12/13/2023 13:34:05 Discharge Diagnosis: 1:Allergic reaction to adhesive Primary Care Physician: Mayra Rincon Provider Information Primary Provider: Jorge Mcintosh DO Advanced Dietetic Intern:None The exam and treatment you received in the Emergency Department were for an urgent problem and are not intended as complete care. It is important that you follow up with a doctor, nurse practitioner,or physician?s construction assistant for ongoing care. If your symptoms become worse or you do not improve as expected and you are unable to reach your usual health care provider, you should return to the Emergency Department. We are available 24 hours a day. JERAD TRACY has been given the following list of patient education materials, prescriptions andfollow-up instructions: Follow-up Instructions: With: Address: When: Mayra Morris [employer], [address], [address] [address] Business (1) In 3 days 12/16/2023 In the event that this physician does not participate in your insurance network, please consult with your insurance company to find a nearby participating provider. Patient Education Materials: Allergies, Adult, Znkm-jn-Mscy A MESSAGE TO ALL PATIENTS REGARDING OPIOIDS PRESCRIPTION OPIOIDS: WHAT YOU NEED TO KNOW Prescription opioids can be used to help relieve cmcghxeg-iw-smejpw pain and are often prescribed following a [...] and have fewer risks and side effects. Optionsmay include: ? Pain relievers such as acetaminophen, [...] unused prescription opioids: Find your community drug take- back program or [employer] mail-back program, or flush them down the toilet, following guidance from the Food and Drug Administration (www.fda.gov/Drugs/ResourcesForYou). ? Visit www.cdc.gov/drugoverdose to learn about the risks of opioids abuse and overdose. ? If you believe you may be struggling with addiction, tell your health childcare aide and ask for guidance or call [facility]A?S National Help (more content not included)...Newark HospitalCT Head WO contraston 73-43-3462Tl acute intracranial abnormality. MACRO: None Signed by: Kati Beth 12/10/2023 4:41 AM Dictation workstation: [id number] By: Kati Beth, STUDY: CT HEAD WO IV CONTRAST; 12/10/2023 4:33 am INDICATION: Signs/Symptoms:fall, syncope head trauma r/o sah, ich. COMPARISON: None. ACCESSION NUMBER(S): [id number] ORDERING CLINICIAN: DECLAN LAUREANO TECHNIQUE: Axial noncontrast CT images of the [...] No destructive osseous lesion. OTHER FINDINGS: None. MMODALBoKati wagoner MD - 12/10/2023 Interpreted By: Kati Beth, STUDY: CT HEAD WO IV CONTRAST; 12/10/2023 4:33 am INDICATION: Signs/Symptoms:fall, syncope head trauma r/o sah, ich. COMPARISON: None. ACCESSION NUMBER(S): [id number] ORDERING CLINICIAN: DECLAN LAUREANO TECHNIQUE: Axial noncontrast CT images of the [...] Kati Beth 12/10/2023 4:41 AM Dictation workstation: [id number] [facility] Work Phone: UnWood [facility] Work Phone: Radiology Study observation (narrative)[facility] Work Phone: ECG 12 LeadOrdered By: Samantha Cain on 12-10-2023 Atrial Mqrc04MSUXcmyntibglOhio State Health System Work Phone: [phone] Bitt80bpvmakmLurofdtctmJoint [facility] District [facility] Hospital Work Phone: [phone] Epweqn814 [facility] Work Phone: [phone] Gnfwi181 [facility] Work Phone: [phone] Hfuzioms432 [facility] Work Phone: [phone] Dessy762 [facility] Work Phone: [phone] Mkmor67sqfliOzdcfqwyziShelby Memorial Hospital Work Phone: [phone] Oytoqdrp35 [facility] Work Phone: [phone] Dyrfdyel272 [facility] Work Phone: [phone] Calculation(Bazett)478 [facility] Work Phone: [phone] Lectosbdiu339 [facility] Work Phone: R Idgd43bpnddofSesuwrxeckBlanchard Valley Health System Work Phone: T Ycgy24cfhhujlPolngfnsfaBlanchard Valley Health System Work Phone: T Esqnob512 [facility] Work Phone: [phone] Fhjm13OMDCqzsagkgwzOhio State Health System Work Phone: [phone] Work Phone: [phone] 12 Leadon 93-84-5036Rhromf sinus rhythm with sinus arrhythmia Normal ECG When compared with ECG of 09-DEC-2023 13:48, No significant change was found See ED provider note for full interpretation and clinical correlation Confirmed by Samantha Cain ([id number]) on 12/10/2023 1:59:40 AMSamantha Barton PA-C - 12/10/2023 Normal sinus rhythm with sinus arrhythmia Normal ECG When compared with ECG of 09-DEC-2023 13:48, No significant change was found See ED provider note for full interpretation and clinical correlation Confirmed by Samantha Cain ([id number]) on 12/10/2023 1:59:40 AM [facility] Work Phone: [phone] 12-LEADon 96-61-1014QZD 12-LEADVentricular Rate 68 Atrial Rate 68 P-R Interval 126 QRS Duration 88 Q-T Interval 450 QTC Calculation(Bazett) 478 P Meyers Chuck 39 R Meyers Chuck 20 T Meyers Chuck 12 QRS Count 12 Q Onset 217 P Onset 154 P Offset 201 T Offset 442 QTC Fredericia 469 Diagnosis Normal sinus rhythm with sinus arrhythmia Normal ECG When compared with ECG of 09-DEC-2023 13:48, No significant change was found See ED provider note for full interpretation and clinical correlation Confirmed by Samantha Cain ([id number]) on 12/10/2023 1:59:40 AMNormalShore Memorial HospitalNo Panel Informationon 48-41-8374Cxyukcxwjvwbqy and review of laboratory resultsAbnoProtestant Deaconess HospitalUnWood County HospitalTropinin I.cardiac panel High sensitivity methodon 12-10-2023 Interpretation and review of laboratory resultsNoProtestant Deaconess HospitalLess than 99th percentile of normal range cutoff- Female and children under 18 years old <35 ng/L; Male <54 ng/L: Negative Repeat testing should be performed if clinically indicated. Female and children under 18 years old 35-120 ng/L; Male 54-120 ng/L: Consistent with possible cardiac damage and possible increased clinical risk. Serial measurements may help to assess extent of myocardial damage. >120 ng/L: Consistent with cardiac damage, increased clinical risk and myocardial infarction. Serial measurements may help assess extent of myocardial damage. NOTE: Children less than 1 year old may have higher baseline troponin levels and results should be interpreted in conjunction with the overall clinical context. NOTE: Troponin I testing is performed using a different testing methodology at [facility] than at other [facility]. Direct result comparisons should only be made within the same method. [facility] Medical CenterTroponin I, High Sensitivityon 94-30-1829Qhbevkfk I.cardiac panel High sensitivity method ng/L0 - 34 ng/LUnWood County HospitalUrinalysis complete panel (U)on 95-74-6543Wncaoosvcp (U)TurbidAbnormalClearUnWood County Hospital Bilirubin (U) [Mass/Vol]NegativeNEGATIVEUnWood County HospitalColor (U)YellowLight-Yellow, Yellow, Dark-YellowUnWood County Hospital Glucose Auto test strip (U) [Mass/Vol]NormalNormal mg/dLUnWood County HospitalKetones (U) [Mass/Vol]10 (1+)AbnormalNEGATIVE mg/dLUnWood County HospitalLeukocyte esterase Auto test strip Ql (U)25 Robert/ LAbnormalNEGATIVE [facility] HospitalNitrite Auto test strip Ql (U)NegativeNEGATIVE [facility] HospitalpH (U)6.0 [pH]5.0, 5.5, 6.0, 6.5, 7.0, 7.5, 8.0 [facility] HospitalProtein (U) [Mass/Vol]50 (1+)AbnormalNEGATIVE, 10 (TRACE), 20 (TRACE) mg/dLUnWood County HospitalRBC (U) [#/Vol] NegativeNEGATIVEUnWood County HospitalSpecific gravity (U) [Rel density]1.0351.005 - 1.035UnWood County HospitalUrobilinogen (U) [Mass/Vol]4 (2+)AbnormalNormal mg/dLUnWood County HospitalComment on above:Some pigments and medications may cause a false positive urobilinogen. Urinalysis microscopic panel Auto Ql (U)on 75-42-8154Bmuwxth oxalate crystals Computer assisted (U) [#/Area]4+AbnormalNONE, 1+ /[facility] Hospital for RehabilitationEpithelial cells.squamous Auto (Urine sed) [#/Area]10-25 (FEW)Reference range not established. /HPFUnWood County HospitalMucus Auto (Urine sed) [#/Area]4+Reference range not established. /LPFUniversSelect Specialty Hospital - EvansvilleRB Auto (Urine sed) [#/Area]1-2NONE, 1-2, 3-5 /HPFJoint Township District Memorial HospitalWBC Auto (Urine sed) [#/Area]1-51-5, NONE /[facility] for RehabilitationXR Chest 2 Viewson . No acute cardiopulmonary process. I personally reviewed the image(s)/study and resident interpretation. I agree with the findings as stated by resident Amado Todd. Data analyzed and images interpreted at [facility], [place], [place]. MACRO: None Signed by: Kati Beth 12/10/2023 2:29 AM Dictation workstation: [id number] MMODALInterpreted By: Kati Beth and Beyersdorf Conner STUDY: XR CHEST 2 VIEWS; 12/10/2023 1:25 am INDICATION: Signs/Symptoms:chest tightness r/o pleural effusion pneumothorax. COMPARISON: Two-view chest 12/07/2023 ACCESSION NUMBER(S): [id number] ORDERING CLINICIAN: ROBERTO APARICIO FINDINGS: PA and lateral radiographs of the chest were provided. CARDIOMEDIASTINAL SILHOUETTE: Cardiomediastinal silhouette is normal in size and configuration. LUNGS: No consolidation, pleural effusion, or pneumothorax. ABDOMEN: No remarkable upper abdominal findings. BONES: No acute osseous changes. Kati Guallpa MD - 12/10/2023 Interpreted By: Kati Beth and Peyton Fischer STUDY: XR CHEST 2 VIEWS; 12/10/2023 1:25 am INDICATION: Signs/Symptoms:chest tightness r/o pleural effusion pneumothorax. COMPARISON: Two-view chest 12/07/2023 ACCESSION NUMBER(S): [id number] ORDERING CLINICIAN: ROBERTO APARICIO FINDINGS: PA and [...] Todd. Data analyzed and images interpreted at [place], [place]. MACRO: None Signed by: Kati Beth 12/10/2023 2:29 AM Dictation workstation: [id number] [facility] Work Phone: Radiology Study observation (narrative)[facility] Work Phone: xr Chest 2 ViewsOrdered By: Kati Beth on 99-64-5028MwjafcgjcxWood County Hospital Work Phone: cbc W Auto Differential panel (Bld)on 12-09-2023 Basophils (Bld) [#/Vol]0.01 10*3/[facility] Basophils/100 WBC (Bld)0.2 %0.0 - 2.0 %[facility] Eosinophils (Bld) [#/Vol]0.28 10*3/[facility] Eosinophils/100 WBC (Bld)4.3 %0.0 - 6.0 %[facility] Erythrocyte distribution width (RBC) [Ratio]12.6 %11.5 - 14.5 %[facility] HospitalHematocrit (Bld) [Volume fraction]35.8 %Low36.0 - 46.0 % [facility] HospitalHemoglobin (Bld) [Mass/Vol]12.5 g/dL12.0 - 16.0 g/dLUnWood County HospitalImchristian hospital granulocytes (Bld) [#/Vol]0.08 10*3/uLUnWood County HospitalImchristian hospital granulocytes/100 WBC (Bld)1.2 % High0.0 - 0.9 %[facility] on above:Immature Granulocyte Count (IG) includes promyelocytes, myelocytes and metamyelocytes but does not include bands. Percent differential counts (%) should be interpreted in the context of the absolute cell counts (cells/UL).Interpretation and review of laboratory resultsAbnormalUniShelby Memorial HospitalLymphocytes (Bld) [#/Vol]2.32 10*3/uLUnWood County HospitalLymphocytes/100 WBC (Bld) 35.7 %13.0 - 44.0 %[facility], [facility] ShawH (RBC) [Entitic mass]30.6 pg26.0 - 34.[address] Joseph Warren HospitalHC (RBC) [Mass/Vol]34.9 g/dL 32.0 - 36.0 g/dLSelect Medical Cleveland Clinic Rehabilitation Hospital, Edwin ShawV (RBC) [Entitic vol]88 fL80 - 100 fLUniShelby Memorial HospitalMonocytes (Bld) [#/Vol]0.52 10*3/uL [facility] HospitalMonocytes/100 WBC (Bld)8.0 %2.0 - 10.0 % [facility] HospitalNeutrophils (Bld) [#/Vol]3.29 10*3/uLTwin City Hospital on above:Percent differential counts (%) should be interpreted in the context of the absolute cell counts (cells/uL). Neutrophils/100 WBC (Bld)50.6 %40.0 - 80.0 %[facility] Nucleated RBC/100 WBC (Bld) [Ratio]0.0 %[facility] Platelets (Bld) [#/Vol]295 10*3/[facility] HospitalRBC (Bld) [#/Vol]4.09 10*6/[facility] HospitalWBC (Bld) [#/Vol]6.5 10*3/uL [facility] HospitalUnWood County HospitalComprehensive metabolic 2000 panelon 18-94-7584Ilbwoos BCP dye [Mass/Vol]4.0 g/dL3.4 - 5.0 g/dLUnWood County HospitalALP [Catalytic activity/Vol]87 U/L33 - 110 U/[facility] HospitalALT With P-5'-P [Catalytic activity/Vol]24 U/L7 - 45 U/[place] on above:Patients treated with Sulfasalazine may generate falsely decreased results for ALT.Anion gap [Moles/Vol]14 mmol/L10 - 20 mmol/[facility] HospitalAST With P-5'-P [Catalytic activity/Vol]25 U/L9 - 39 U/[facility] Bilirubin [Mass/Vol]0.3 mg/dL0.0 - 1.2 mg/dLUnWood County Hospital Calcium [Mass/Vol]8.7 mg/dL8.6 - 10.6 mg/dLUnWood County Hospital Chloride [Moles/Vol]105 mmol/L98 - 107 mmol/[facility] CO2 [Moles/Vol]25 mmol/L21 - 32 mmol/[facility] Creatinine [Mass/Vol]0.82 mg/dL0.50 - 1.05 mg/dLJoint Township District Memorial HospitalGFR/1.73 sq M.predicted among non-blacks MDRD (S/P/Bld) [Vol rate/Area] 89 mL/min/{1.73_m2}- PINFUniSuburban Community Hospital & [facility] on above: Calculations of estimated GFR are performed using the 2020 CKD-EPI Study Refit equation without therace variable for the IDMS-Traceable creatinine methods. https://jasn.asnjournals.org/content/early/ASN.4284323696 Glucose [Mass/Vol]103 mg/uIZkue35 - 99 mg/dLUnWood County Hospital Interpretation and review of laboratory resultsAbnormalUniShelby Memorial HospitalPotassium [Moles/Vol]3.5 mmol/L3.5 - 5.3 mmol/[facility] HospitalProtein [Mass/Vol]7.1 g/dL6.4 - 8.2 g/dLUnWood County HospitalSodium [Moles/Vol]140 mmol/L136 - 145 mmol/[facility] HospitalUrea nitrogen [Mass/Vol]9 mg/dL6 - 23 mg/dLUnWood County HospitalUnWood County HospitalECG 12-LEADon 68-16-4589VTN 12-LEAD Ventricular Rate 70 Atrial Rate 70 P-R Interval 128 QRS Duration 86 Q-T Interval 434 QTC Calculation(Bazett) 468 P Meyers Chuck 47 R Meyers Chuck 35 T Meyers Chuck 39 QRS Count 11 Q Onset 217 P Onset 153 P Offset 205 T Offset 434 QTC Fredericia 457 Diagnosis Normal sinus rhythm Low voltage QRS Borderline ECG When compared with ECG of 07-DEC-2023 17:07, No significant change was found See ED provider note for full interpretation and clinical correlation Confirmed by Germaine Lloyd ([id number]) on 12/13/2023 5:09:16 [facility] CenterNo Panel Informationon 13-73-0096Nvpltzhcg Study observation (narrative)[facility] Work Phone: XR ELBOW RIGHT 1-2 VIEWSon 88-67-2687ES ELBOW RIGHT 1- 2 VIEWSInterpreted By: Ernestina Bond, STUDY: Right elbow, two views. INDICATION: Signs/Symptoms:Fall with injury. COMPARISON: 09/16/2023. ACCESSION NUMBER(S): [id number] ORDERING CLINICIAN: JAROCHO DELATORRE FINDINGS: No acute fracture or malalignment. No elbow joint effusion or abnormal fat pad elevation. No significant degenerative changes. Soft tissues are unremarkable. IMPRESSION: 1. Unremarkable radiographic evaluation of the right elbow. MACRO: None. Signed by: Ernestina Bond 12/09/2023 2:36 PM Dictation workstation: [id number] HealthcareXR Elbow Viewson [id number] By: Ernestina Bond, STUDY: Right elbow, two views. INDICATION: Signs/Symptoms:Fall with injury. COMPARISON: 09/16/2023. ACCESSION NUMBER(S): [id number] ORDERING CLINICIAN: JAROCHO DELATORRE FINDINGS: No acute fracture or malalignment. No elbow joint effusion or abnormal fat pad elevation. No significant degenerative changes. Soft tissues are unremarkable. MMODALErnestina Bond MD - 12/09/2023 Interpreted By: Ernestina Bond, STUDY: Right elbow, two views. INDICATION: Signs/Symptoms:Fall with injury. COMPARISON: 09/16/2023. ACCESSION NUMBER(S): [id number] ORDERING CLINICIAN: JAROCHO DELATORRE FINDINGS: No acute fracture or malalignment. No elbow joint effusion or abnormal fat pad elevation. No significant degenerative changes. Soft tissues are unremarkable. IMPRESSION: 1. Unremarkable radiographic evaluation of the right elbow. MACRO: None. Signed by: Ernestina Bond 12/09/2023 2:36 PM Dictation workstation: [id number] [facility] Work Phone: [facility] Work Phone: XR HAND RIGHT 3+ VIEWSon [phone] HAND RIGHT 3+ VIEWSInterpreted By: Ernestina Bond, STUDY: Right hand, 3 views. INDICATION: Signs/Symptoms:Fall with right thumb/hand injury. COMPARISON: None. ACCESSION NUMBER(S): [id number] ORDERING CLINICIAN: JAROCHO DELATORRE FINDINGS: No acute fracture or malalignment. Mild [...] Ernestina Bond 12/09/2023 2:36 PM Dictation workstation: [id number] HealthcareXR Hand - right 3 Viewson . 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 No acute fracture or malalignment MACRO: None. Signed by: Ernestina Bond 12/09/2023 2:36 PM Dictation workstation: [id number] MMODALInterpreted By: Ernestina Bond, STUDY: Right hand, 3 views. INDICATION: Signs/Symptoms:Fall with right thumb/hand injury. COMPARISON: None. ACCESSION NUMBER(S): [id number] ORDERING CLINICIAN: JAROCHO DELATORRE FINDINGS: No acute fracture or malalignment. 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 Small chronic Heterotopic ossification noted in the soft tissues adjacent to the trapezium. Soft tissues are within normal limits. MMErnestina Davis MD - 12/09/2023 Interpreted By: Ernestina Bond, STUDY: Right hand, 3 views. INDICATION: Signs/Symptoms:Fall with right thumb/hand injury. COMPARISON: None. ACCESSION NUMBER(S): [id number] ORDERING CLINICIAN: JAROCHO DELATORRE FINDINGS: No acute fracture or malalignment. Mild [...] Ernestina Bond 12/09/2023 2:36 PM Dictation workstation: [id number] [facility] Work Phone: UnWood County Hospital Work Phone: XR SHOULDER RIGHT 2+ VIEWSon 56-32-5399XO SHOULDER RIGHT 2+ VIEWSInterpreted By: Ernestina Bond, STUDY: Right shoulder, five views. INDICATION: Signs/Symptoms:Injury to right shoulder. COMPARISON: Chest radiograph 12/07/2023. ACCESSION NUMBER(S): [id number] ORDERING CLINICIAN: JAROCHO DELATORRE FINDINGS: No acute fracture or malalignment. No significant degenerative changes. Soft tissues are unremarkable. Remote healed fracture deformity of the mid right clavicle noted with mild malunion. IMPRESSION: 1. Unremarkable right shoulder radiographs. 2. Remote healed fracture deformity of the mid right clavicle with mild malunion. MACRO: None. Signed by: Ernestina Bond 12/09/2023 2:34 PM Dictation workstation: [id number] [place], [place] [address]XR Shoulder - right 2 Viewson . Unremarkable right shoulder radiographs. 2. Remote healed fracture deformity of the mid right clavicle with mild malunion. MACRO: None. Signed by: Ernestina Bond 12/09/2023 2:34 PM Dictation workstation: [id number] MMODALInterpreted By: Ernestina Bond, STUDY: Right shoulder, five views. INDICATION: Signs/Symptoms:Injury to right shoulder. COMPARISON: Chest radiograph 12/07/2023. ACCESSION NUMBER(S): [id number] ORDERING CLINICIAN: JAROCHO DELATORRE FINDINGS: No acute fracture or malalignment. No significant degenerative changes. Soft tissues are unremarkable. Remote healed fracture deformity of the mid right clavicle noted with mild malunion. MMODALKoErnestina toribio MD - 12/09/2023 Interpreted By: Ernestina Bond, STUDY: Right shoulder, five views. INDICATION: Signs/Symptoms:Injury to right shoulder. COMPARISON: Chest radiograph 12/07/2023. ACCESSION NUMBER(S): [id number] ORDERING CLINICIAN: JAROCHO DELATORRE FINDINGS: No acute fracture or malalignment. No significant degenerative changes. Soft tissues are unremarkable. Remote healed fracture deformity of the mid right clavicle noted with mild malunion. IMPRESSION: 1. Unremarkable right shoulder radiographs. 2. Remote healed fracture deformity of the mid right clavicle with mild malunion. MACRO: None. Signed by: Ernestina Bond 12/09/2023 2:34 PM Dictation workstation: [id number] [facility] Work Phone: XR Shoulder - right 2 ViewsOrdered By: Ernestina Bond on 78-48-1178ObjvhwhmfrWood County Hospital Work Phone: BilirubinRylanon 17-94-1778Jyxpaoxqt.direct [Mass/Vol]0.1 mg/dL0.0 - 0.3 mg/dLUnWood County HospitalCB W Auto Differential panel (Bld)on 94-63-0781Mruxiudxt (Bld) [#/Vol]0.01 10*3/uL [facility] HospitalBasophils/100 WBC (Bld)0.1 %0.0 - 2.0 % [facility] HospitalEosinophils (Bld) [#/Vol]0.27 10*3/uLUnWood County HospitalEosinophils/100 WBC (Bld)3.8 %0.0 - 6.0 %[facility] HospitalErythrocyte distribution width (RBC) [Ratio]13.0 %11.5 - 14.5 %[facility] HospitalHematocrit (Bld) [Volume fraction]41.4 % 36.0 - 46.0 %[facility] HospitalHemoglobin (Bld) [Mass/Vol]13.4 g/dL12.0 - 16.0 g/dLUnWood County HospitalImchristian hospital granulocytes (Bld) [#/Vol]0.02 10*3/uLJoint Township District Memorial HospitalImchristian hospital granulocytes/100 WBC (Bld)0.3 %0.0 - 0.9 %[facility] HospitalComment on above: Immature Granulocyte Count (IG) includes promyelocytes, myelocytes and metamyelocytes but does not include bands. Percent differential counts (%) should be interpreted in the context of the absolute cell counts (cells/UL). Lymphocytes (Bld) [#/Vol]1.45 10*3/uLJoint Township District Memorial Hospital Lymphocytes/100 WBC (Bld)20.3 %13.0 - 44.0 %[facility] ShawH (RBC) [Entitic mass]30.6 pg26.0 - 34.[address] Joseph Warren HospitalHC (RBC) [Mass/Vol]32.4 g/dL32.0 - 36.0 g/dLUniversity Hospitals of ClevelandMCV (RBC) [Entitic vol]95 fL80 - 100 fLUniversSelect Specialty Hospital - EvansvilleMonocytes (Bld) [#/Vol]0.52 10*3/[facility] HospitalMonocytes/100 WBC (Bld)7.3 %2.0 - 10.0 %[facility] HospitalNeutrophils (Bld) [#/Vol] 4.87 10*3/[facility] on above:Percent differential counts (%) should be interpreted in the context of the absolute cell counts (cells/uL).Neutrophils/100 WBC (Bld)68.2 %40.0 - 80.0 %[facility] HospitalNucleated RBC/100 WBC (Bld) [Ratio]0.0 %[facility] HospitalPlatelets (Bld) [#/Vol]341 10*3/[facility] HospitalRBC (Bld) [#/Vol]4.38 10*6/[facility] HospitalWBC (Bld) [#/Vol]7.1 10*3/[facility]ers HospitalUnWood County HospitalCT Abdomen and Pelvis W contrast Karen 58-83-0134Zvdrytgql Study observation (narrative)[facility] Work Phone: CT Lumbar spine WO contraston 57-59-8157Wdyykzgrl Study observation (narrative)[facility] Work Phone: Comprehensive metabolic 1999 panelon 68-43-3857Ufoaifi BCP dye [Mass/Vol]4.1 g/dL3.4 - 5.0 g/dLUnWood County HospitalALP [Catalytic activity/Vol]76 U/L33 - 110 U/[facility] HospitalALT With P-5'-P [Catalytic activity/Vol]32 U/L7 - 45 U/[place] on above:Patients treated with Sulfasalazine may generate falsely decreased results for ALT.Anion gap [Moles/Vol]12 mmol/L10 - 20 mmol/L [facility] HospitalAST With P-5'-P [Catalytic activity/Vol]28 U/L9 - 39 U/LUniversity Hospitals of ClevelandBilirubin [Mass/Vol]0.4 mg/dL0.0 - 1.2 mg/dLJoint Township District Memorial HospitalCalcium [Mass/Vol]8.8 mg/dL8.6 - 10.6 mg/dLJoint Township District Memorial HospitalChloride [Moles/Vol]104 mmol/L98 - 107 mmol/[facility] HospitalCO2 [Moles/Vol]27 mmol/L21 - 32 mmol/L [facility] HospitalCreatinine [Mass/Vol]0.81 mg/dL0.50 - 1.05 mg/dLUnWood County HospitaleGFR- PINFUBluffton HospitalComment on above:Calculations of estimated GFR are performed using the 2020 CKD-EPI Study Refit equation without therace variable for the IDMS- Traceable creatinine methods. https://jasn.asnjournals.org/content//ASN.5121543789 Glucose [Mass/Vol]98 mg/dL74 - 99 mg/dLJoint Township District Memorial Hospital Potassium [Moles/Vol]3.6 mmol/L3.5 - 5.3 mmol/[facility] Protein [Mass/Vol]7.1 g/dL6.4 - 8.2 g/dLUnWood County HospitalSodium [Moles/Vol]139 mmol/L136 - 145 mmol/[facility] HospitalUrea nitrogen [Mass/Vol]12 mg/dL6 - 23 mg/dLJoint Township District Memorial HospitalECG 12 leadOrdered By: Marquis Obrien on 22-57-1624Rwpbsr Ljpz53MAUFmpryttljjOhio State Health System Work Phone: P Fgxu71pdacpkbNoqkpzzrpeJoint [facility] Work Phone: [phone] Furllm113 [facility] Work Phone: P Qgxjy487 [facility] Work Phone: [phone] Ololniao183 [facility] Work Phone: Q Crzdt862 [facility] Work Phone: QRS Rjapa26fvbesWwmfnemuzrShelby Memorial Hospital Work Phone: [phone] Atyoueax76 [facility] Work Phone: [phone] Ocsgkatl106 [facility] Work Phone: [phone] Calculation(Bazett)486 [facility] Work Phone: [phone] Pumvbymash887 [facility] Work Phone: [phone] Wyzk65fbniqglVbniyynkvaBlanchard Valley Health System Work Phone: [phone] Lbgw42bqcdjapEnjdfbzkhaBlanchard Valley Health System Work Phone: [phone] Nayeov335 [facility] Work Phone: [phone] Oqna81ACRDblgcouatjSt. Francis Hospital Work Phone: [phone] Work Phone: [phone] 12 leadon 24-85-6130Yytyln sinus rhythm Possible Left atrial enlargement Prolonged QT Abnormal ECG When compared with ECG of 06-DEC-2023 16:27, No significant change was found See ED provider note for full interpretation and clinical correlation Confirmed by Marquis Obrien ([id number]) on 12/07/2023 9:49:06 PMMarquis Issa PA-C - 12/07/2023 Normal sinus rhythm Possible Left atrial enlargement Prolonged QT Abnormal ECG When compared with ECG of 06-DEC-2023 16:27, No significant change was found See ED provider note for full interpretation and clinical correlation Confirmed by Marquis Obrien ([id number]) on 12/07/2023 9:49:06 PM [facility] Work Phone: [phone] 12-LEADon 41-61-4367GJA 12-LEADVentricular Rate 76 Atrial Rate 76 P-R Interval 140 QRS Duration 84 Q-T Interval 432 QTC Calculation(Bazett) 486 P Meyers Chuck 60 R Meyers Chuck 59 T Meyers Chuck 61 QRS Count 13 Q Onset 217 P Onset 147 P Offset 205 T Offset 433 QTC Fredericia 467 Diagnosis Normal sinus rhythm Possible Left atrial enlargement Prolonged QT Abnormal ECG When compared with ECG of 06-DEC-2023 16:27, No significant change was found See ED provider note for full interpretation and clinical correlation Confirmed by Marquis Obrien ([id number]) on 12/07/2023 9:49:06 PMNAppleton Municipal HospitalHCG.beta subunit Qnon 88-65-3908Pzscj HCG measurement is performed using the Siemens AtellBrain in Hand immunoassay which detects intact HCG and free beta HCG subunit. This test is not indicated for use as a tumor marker. HCG testing is performed using a different test methodology at [facility] than other [facility]. Direct result comparison should only be made within the same method. [facility] HospitalLipaseon 59-18-8176Xrtrls [Catalytic activity/Vol]30 U/L9 - 82 U/[facility] Union HospitalLipase [Catalytic activity/Vol]on 39-11-8159Bhgjarpptpct immediately after or during the administration of Metamizole may lead to falsely low results. Testing should be performed immediately prior to Metamizole dosing.[facility] HospitalMR Lumbar spine WO and W contrast Karen . Previously described focal fluid collection of the [...] Suarez MD. This study was interpreted at [facility], [place], [place] MACRO: None Signed by: Oscar Sabillon 12/07/2023 1:30 AM Dictation workstation: [id number] MMODALInterpreted By: Oscar Sabillon, and Barbat Sesar STUDY: MR LUMBAR SPINE W AND WO IV CONTRAST; 12/06/2023 9:50 pm INDICATION: Signs/Symptoms:post op wound complication. COMPARISON: MR lumbar spine 11/13/2023. ACCESSION NUMBER(S): [id number] ORDERING CLINICIAN: MARQUIS OBRIEN TECHNIQUE: Sagittal T1, T2, STIR, axial T1 [...] severe left subarticular stenosis, similar to prior. Kdkk-mj-icmrcwfv ozpex-wtgftjp-bfds-left neural foraminal stenosis. L5-S1: Small disc bulge [...] direct evidence of a formed/loculated fluid collection. MMODALOscar Sabillon, - 12/07/2023 Interpreted By: Oscar Sabillon and Barbat Antonio STUDY: MR LUMBAR SPINE W AND WO IV CONTRAST; 12/06/2023 9:50 pm INDICATION: Signs/Symptoms:post op wound complication. COMPARISON: MR lumbar spine 11/13/2023. ACCESSION NUMBER(S): [id number] ORDERING CLINICIAN: MARQUIS OBRIEN TECHNIQUE: Sagittal T1, T2, STIR, axial T1 [...] severe left subarticular stenosis, similar to prior. Vbva-ep-sghbycnw edqzq-djxrrrs-uqha-left neural foraminal stenosis. L5-S1: Small disc bulge [...] Suarez MD. This study was interpreted at [facility], [place], [place] MACRO: None Signed by: Oscar Sabillon 12/07/2023 1:30 AM Dictation workstation: [id number] [facility] Work Phone: mr Lumbar spine WO and W contrast IVOrdered By: Oscar Sabillon on 26-63-8929AackylhgfnJoint Township District Memorial Hospital Work Phone: no Panel Informationon . No acute process. 2. Again noted is some subcutaneous edema posterior to the midline lumbar spine overall stable in appearance compared to prior exam. No underlying fluid collection or abscess. 3. The hyperdensity in the anterior aspect of the spinal canal at L4-5 seen on prior exam is less well visualized on the current study. 4. Hepatic steatosis. Signed by Taj Chandler MD TELERADIOLOGYSTUDY: CT Abdomen and Pelvis with IV Contrast; CT Lumbar Spine Without IV Contrast; 12/07/2023 at 6:06 PM INDICATION: Left sided abdominal pain and guarding. Recent post op fluid collection on lumbar spine MRI. Evaluate for diverticulitis. COMPARISON: CT lumbar spine 12/07/2023, MRI lumbar spine 12/06/2023, CT lumbar spine 11/13/2023, CT lumbar spine , XR abdomen 10/31/2023. ACCESSION NUMBER(S): [id number], [id number] ORDERING CLINICIAN: DOUG ALFONSO TECHNIQUE: CT of [...] identified. Abdominal aorta is normal in caliber. PERITONEUM/RETROPERITONEUM/LYMPH NODES: No free fluid. No pneumoperitoneum. No [...] normal limits. The visualized abdomen is unremarkable. TELERADIOLOGYBlodgett, Taj Nguyen MD - 12/07/2023 STUDY: CT Abdomen and Pelvis with IV Contrast; CT Lumbar Spine Without IV Contrast; 12/07/2023 at 6:06 PM INDICATION: Left sided abdominal pain and guarding. Recent post op fluid collection on lumbar spine MRI. Evaluate for diverticulitis. COMPARISON: CT lumbar spine 12/07/2023, MRI lumbar spine 12/06/2023, CT lumbar spine 11/13/2023, CT lumbar spine , XR abdomen 10/31/2023. ACCESSION NUMBER(S): [id number], [id number] ORDERING CLINICIAN: DOUG ALFONSO TECHNIQUE: CT of [...] identified. Abdominal aorta is normal in caliber. PERITONEUM/RETROPERITONEUM/LYMPH NODES: No free fluid. No pneumoperitoneum. No [...] Hepatic steatosis. Signed by Taj Chandler MD [facility] Work Phone: Interpretation and review of laboratory resultsNormal [facility] HospitalUnWood County HospitalInterpretation and review of laboratory resultsNormalUniProMedica Flower HospitalNo Panel InformationOrdered By: Taj Chandler on 79-12-6839LjkrirtplmJoint Township District Memorial Hospital Work Phone: Tropinin I.cardiac panel High sensitivity methodon 79-89-1087Ruvm than 99th percentile of normal range cutoff- Female and children under 18 years old <35 ng/L; Male <54 ng/L: Negative Repeat testing should be performed if clinically indicated. Female and children under 18 years old 35-120 ng/L; Male 54-120 ng/L: Consistent with possible cardiac damage and possible increased clinical risk. Serial measurements may help to assess extent of myocardial damage. >120 ng/L: Consistent with cardiac damage, increased clinical risk and myocardial infarction. Serial measurements may help assess extent of myocardial damage. NOTE: Children less than 1 year old may have higher baseline troponin levels and results should be interpreted in conjunction with the overall clinical context. NOTE: Troponin I testing is performed using a different testing methodology at [facility] than at other [facility]. Direct result comparisons should only be made within the same method. [facility] HospitalTroponin I, High Sensitivityon 12-07-2023 Tropinin I.cardiac panel High sensitivity methodng/L0 - 34 ng/LUnWood County HospitalXR Chest 2 Viewson 87-95-8625Ws radiographic evidence of acute cardiopulmonary disease. Signed by Chandana Andersen MD TELERADIOLOGYSTUDY: Chest Radiographs; 12/07/2023 4:30 PM INDICATION: Shortness of breath. COMPARISON: XR chest 11/13/2023. ACCESSION NUMBER(S): [id number] ORDERING CLINICIAN: DOUG ALFONSO TECHNIQUE: Frontal and lateral chest. FINDINGS: CARDIOMEDIASTINAL SILHOUETTE: Cardiomediastinal silhouette is normal in size and configuration. LUNGS: Lungs are clear. ABDOMEN: No remarkable upper abdominal findings. BONES: No acute osseous changes. TELERADIOLOGYMillChandana davis MD - 12/07/2023 STUDY: Chest Radiographs; 12/07/2023 4:30 PM INDICATION: Shortness of breath. COMPARISON: XR chest 11/13/2023. ACCESSION NUMBER(S): [id number] ORDERING CLINICIAN: DOUG ALFONSO TECHNIQUE: Frontal and lateral chest. FINDINGS: CARDIOMEDIASTINAL SILHOUETTE: Cardiomediastinal silhouette is normal in size and configuration. LUNGS: Lungs are clear. ABDOMEN: No remarkable upper abdominal findings. BONES: No acute osseous changes. IMPRESSION: No radiographic evidence of acute cardiopulmonary disease. Signed by Chandana Andersen MD [facility] Work Phone: Radiology Study observation (narrative)[facility] Work Phone: XR Chest 2 ViewsOrdered By: Chandana Andersen on 12-07-2023 [facility] Work Phone: hCG, quantitative, pregnancyon 92-29-7059ZFE.beta subunit QnNINFUnWood County HospitalED Note-Physicianon 77-88-9824RS Note-PhysicianED Note-Physician Basic Information Time Seen: Balbina Bryant M.D. 12/05/2023 19:02 Chief Complaint patient presents with surgical incision drainage and dehiscence that happened yesterday. denies fevers but experiencing nausea and chills. back surgery at [facility] 10/13 History of Present Illness The patient is a 48-year-old female who presented to the emergency room for surgical wound evaluation. The patient states that the wound is dehisced. The patient states she had back surgeryon October 13. The patient has chronic back [...] and Complexity of Problems Differential Diagnosis: [] [facility] Data External documents reviewed: [] My EKG [...] any signs of infection. The patient was givenToradol for chronic back pain. Will discharge patient [...] prescription medications Follow-up With When Contact Information Mayra Rosas In 3 days 12/08/2023 EDT [address], [facility] A [place] [id number] [facility] (1) Additional Instructions: Make sure to follow-up [...] Gel, 1 kennedi, Topi (more content not included)...Newark HospitalComment on above:Result Comment: Electronically Signed By: Balbina Bryant M.D.\.br\Date and Time Signed: 12/05/2401:02 EDTMR Lumbar spine WO and W contrast Karen 53-64-8766Hgqpiaytp Study observation (narrative) [facility] Work Phone: ED Clinical Summaryon [id number] Clinical SummaryED Clinical Summary [place] [address] ED Clinical Summary Person Information Name: JERAD TRACY [place] Age: 48 Years : 1975 Sex: Female Language: Malagasy PCP: Mayra Rincon Marital Status: Visit Id: Visit Reason: [...] 12/05/2023 19:40:10 12/05/2023 19:40:10 12/05/2023 19:40:10 ADDRESS: [address] [place] [id number] PHYS DOC NOTES: MEDICAL INFORMATION: Prescriptions Given: [...] Care, Adult Follow up: With: Address: When: Mayra Rosas [address] [place] [address] A, [address] [address] Business (1) In 3 days 12/08/2023 Comments: Make sure to follow-up with your back surgeon as discussed. Return to the emergency room if there is drainage from the wound, redness around the edge of the wound, fever or any new symptoms. DIAGNOSIS: 1:Visit for wound check; 2:Chronic back pain; Other chronic painNormalPremier Health Miami [facility] Hospital [facility] Patient Summaryon [id number] Patient SummaryED Patient Summary [address] [address] Patient Discharge Instructions Person Information Name: JERAD TRACY Age: 48 Years Arrival Date: 12/05/2023 17:36:20 Discharge Diagnosis: 1:Visit for wound check; 2:Chronic back pain; Other chronic pain Primary Care Physician: Mayra Rincon Provider Information Primary Provider: Balbina Bryant M.D. Advanced Dietetic Intern:None The exam and treatment you received in the Emergency Department were for an urgent problem and are not intended as complete care. It is important that you follow up with a doctor, nurse practitioner,or physician?s construction assistant for ongoing care. If your symptoms become worse or you do not improve as expected and you are unable to reach your usual health care provider, you should return to the Emergency Department. We are available 24 hours a day. JERAD TRACY has been given the following list of patient education materials, prescriptions andfollow-up instructions: Follow-up Instructions: With: Address: When: Mayra Rosas [address] [place] [address] A, [place] [phone] Business (1) In 3 days 12/08/2023 Comments: [...] opioids can be used to help relieve ivlueano-ng-zakxwx pain and are often prescribed following a [...] and have fewer risks and side effects. Optionsmay include: ? Pain relievers such as acetaminophen, [...] unused prescription opioids: Find your community drug take- back program or yourpharmacy mail-back program, or flush them down the toilet, following guidance from the Food and Drug Administration (www.fda.gov/Drugs/Re (more content not included)...Newark HospitalCT SPINE LUMBAR WITH CONTRASTon 21-76-2972ZQAYNYJDVX: 1. Nonspecific posterior lumbar subcutaneous fat stranding without discrete fluid collection. 2. 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 3. Incidental bilateral adrenal nodules (indeterminate on the basis of this examination); consider dedicated adrenal imaging. Keke Beebe D.O.Workstation ID:[id number] [facility]12/04/2023 10:42 PM TECHNIQUE: CT SPINE LUMBAR WITH CONTRAST. INDICATION: BACK PAIN, . COMPARISON: None available. FINDINGS: Nonspecific stranding posterior lumbar subcutaneous fat. Moderate L4-5 degenerative disc disease, facet arthropathy, with central and bilateral neural foraminal stenoses. Anatomic alignment, preserved vertebral body height, and structurally intact posterior elements. Paraspinal soft tissues are otherwise unremarkable. Incidental bilateral adrenal nodules. Keke Wilson DO - 12/04/2023 12/04/2023 10:42 PM TECHNIQUE: [...] consider dedicated adrenal imaging. Keke Beebe D.O.Workstation ID:[id number] [facility] HospitalRadiology Study observation (narrative)[facility] HospitalCT SPINE LUMBAR WITH CONTRASTOrdered By: Keke Beebe on 66-92-5833Hzjxspy [employer] Work Phone: alanine aminotransferase [Enzymatic activity/volume] in Serum or PlasmaOrdered By: Aniket Bhandari on 48-52-8244XBG [Catalytic activity/Vol]22 U/LCrystal Clinic Orthopedic CenterALT [Catalytic activity/Vol]Alanine aminotransferase [Enzymatic activity/volume] in Serum or PlasmaCrystal Clinic Orthopedic CenterAlbumin [Mass/volume] in Serum or Plasma by Bromocresol green (BCG) dye binding methoOrdered By: Aniket Bhandari on 21-16-0377Wozgsoy BCG dye [Mass/Vol]3.9 g/dL3.5-5.7FAdena Health SystemAlbumin BCG dye [Mass/Vol]Albumin [Mass/volume] in Serum or Plasma by Bromocresol green (BCG) dye binding metho3.5-5.7FAdena Health SystemAlkaline phosphatase [Enzymatic activity/volume] in Serum or PlasmaOrdered By: Aniket Bhandari on 58-41-1225WGM [Catalytic activity/Vol]67 U/R69-755KwacurydyCrystal Clinic Orthopedic CenterALP [Catalytic activity/Vol]Alkaline phosphatase [Enzymatic activity/volume] in Serum or Uzkhzo44-486CwgicosxnCrystal Clinic Orthopedic CenterAppearance of UrineOrdered By: Aniket Bhandari on 68-97-0127Gljmkdicmy (U) Urine appearanceClearFAdena Health SystemAspartate aminotransferase [Enzymatic activity/volume] in Serum or PlasmaOrdered By: Aniket Bhandari on 65-81-1871EXM [Catalytic activity/Vol]24 U/V61-66PqdxymyzuCrystal Clinic Orthopedic CenterAST [Catalytic activity/Vol]Aspartate aminotransferase [Enzymatic activity/volume] in Serum or Nvgfcz86-62LflaevovdCrystal Clinic Orthopedic CenterBMPon 30-46-8973Lljho gap [Moles/Vol]9 mmol/LNormal6-16[facility] Comment on above:Performed By: #### [id number] #### [facility] [address] [place], [place] [address]Wagkbav [Mass/Vol]8.8 mg/dLLow8.9-11.1[facility] Shock Trauma CenterComment on above:Performed By: #### [id number] #### [facility] [address] [place], [place] [address]Kimyfxcs [Moles/Vol]107 mmol/XEbypfn956-006DhbgzfOhiohealth Berger HospitalComment on above:Performed By: #### [id number] #### [facility] [address] [place], [place] [address]TI3 [Moles/Vol]28 mmol/YGjgucv85-39OoosffOhiohealth Berger Hospital Comment on above:Performed By: #### [id number] #### [facility] [address] [place], [place] [address]Psospwszgq [Mass/Vol]0.7 mg/dLNormal0.5-1.3FClermont County HospitalComment on above:Performed By: #### [id number] #### [facility] [address] [place], [place] [address]Jvwzveq [Mass/Vol]101 mg/uFXxpxsz77-491EkcuvnOhiohealth Berger HospitalComment on above:Performed By: #### [id number] #### [facility] [address] [place], [place] [address]Lcwjyowdi [Moles/Vol]3.4 mmol/LLow3.5-5.3FClermont County HospitalComment on above:Performed By: #### [id number] #### [facility] [address] [place], [place] [address]Lzcqns [Moles/Vol]141 mmol/TRyqlmp330-488MaemspOhiohealth Berger HospitalComment on above:Performed By: #### [id number] #### [facility] [address] [place], [place] [address]Gdzg nitrogen [Mass/Vol]12 mg/dLNormal5-21[facility] Berger HospitalComment on above:Performed By: #### [id number] #### [facility] [address] [place], [place] [address]Bwvr nitrogen/Creatinine [Mass ratio]17 No FrwbxEuspyy17-58 [facility] HospitalComment on above:Performed By: #### [id number] #### [facility] [address] [place], [place] [address]Cxpckkgq [Presence] in Urine by AutomatedOrdered By: Aniket Bhandari on 00-32-6030Thpimsjl Auto Ql (U)None seen [HPF]None [facility] CenterBacteria Auto Ql (U)Bacteria [Presence] in Urine by AutomatedNone [facility] Medical CenterBasophils Auto (Bld) [#/Vol]Ordered By: Aniket Bhandari on 93-62-4345Welleotlc (Bld) [#/Vol]0.0 10*3/uL0.0-0.2FAdena Health SystemBasophils (Bld) [#/Vol]Automated basophil count0.0-0.2 [facility] Orthopedic CenterBasophils/100 WBC Auto (Bld)Ordered By: Aniket Bhandari on 79-84-4570Tuhorynnw/100 WBC (Bld)0.3 %.[facility] Orthopedic CenterBasophils/100 WBC (Bld)Automated basophil %.[facility] Orthopedic CenterBilirubin Test strip Ql (U)Ordered By: Aniket Bhandari on 78-36-5860Uvhlbopop Ql (U)NegativeNegativeCrystal Clinic Orthopedic CenterBilirubin Ql (U) Bilirubin.total [Presence] in Urine by Test stripNegativeCrystal Clinic Orthopedic CenterBilirubin.direct [Mass/volume] in Serum or PlasmaOrdered By: Aniket Bhandari on 43-44-7888Wrpdpkufo.direct [Mass/Vol]0.00 mg/dLLow0.03-0.18 [facility] CenterComment on above:If the DBIL is less than 0.1, IBIL is not able to becalculated.Bilirubin.direct [Mass/Vol]Bilirubin.direct [Mass/volume] in Serum or PlasmaLow0.03-0.18FAdena Health System Comment on above:If the DBIL is less than 0.1, IBIL is not able to becalculated. Bilirubin.total [Mass/volume] in Serum or PlasmaOrdered By: Aniket Bhandari on 01-73-8042Kqvzqggoi [Mass/Vol]0.3 mg/dL0.3-1.0[facility] Bilirubin [Mass/Vol]Bilirubin.total [Mass/volume] in Serum or Plasma0.3-1.0 [facility] Orthopedic CenterCBC w/ Auto Diffon 65-92-0492Ocasmdrrz/100 WBC (Bld)0.2 %Normal0.0-2.0[facility] HospitalComment on above:Performed By: #### [id number] #### [facility] [address] [place], [place] [address]Vjpiemmjn/Leukocytes Auto (Bld) [Pure # fraction]0.0 E9/LNormal 0.0-0.2FClermont County HospitalComment on above:Performed By: #### [id number] #### [facility] [address] [place] [address]Lnirdsfxqyn (Bld) [#/Vol]0.3 E9/LNormal0.0-0.5FClermont County HospitalComment on above:Performed By: #### [id number] #### [facility] [address] [place] [address]Edwzzzvynhf/100 WBC (Bld)3.1 %Normal0.0-8.0[facility] HospitalComment on above:Performed By: #### [id number] #### [facility] [address] [place] [address]Sbiplwqzqdo distribution width (RBC) [Ratio]14.1 %Normal 10.9-14.2FClermont County HospitalComment on above:Performed By: #### [id number] #### [facility] [address] [place] [address]Aemsmvzbak (Bld) [Volume fraction]35.4 %Darfvj58.0-46.0[facility] HospitalComment on above:Performed By: #### [id number] #### [facility] [address] [place] [address]Hzsgpobrqf (Bld) [Mass/Vol]12.1 g/bFWiciil45.0-16.0[facility] HospitalComment on above:Performed By: #### [id number] #### [facility] [address] [place] [address]Ezcrdkmpdqn (Bld) [#/Vol]1.9 E9/LNormal1.0-4.0[facility] HospitalComment on above:Performed By: #### [id number] #### [facility] [address] [place] [address]Rkhexkkjftv/100 WBC (Bld)20.2 %Txazby71.0-50.0[facility] HospitalComment on above:Performed By: #### [id number] #### [facility] [address] [place] [address]MME (RBC) [Entitic mass]31.9 xnZriqtj79.0-34.0[facility] HospitalComment on above:Performed By: #### [id number] #### [facility] [address] [place] [address]BHQM (RBC) [Mass/Vol]34.3 g/vVBenlao74.4-36.0[facility] HospitalComment on above:Performed By: #### [id number] #### [facility] [address] [place] [address]FIK (RBC) [Entitic vol]93.0 lPDuahhk04.0-100.0[facility] HospitalComment on above:Performed By: #### [id number] #### [facility] [address] [place] [address]Noaudhwuq (Bld) [#/Vol]0.6 E9/LNormal0.2-1.0[facility] HospitalComment on above:Performed By: #### [id number] #### [facility] [address] [place] [address]Rtpldoijxzu (Bld) [#/Vol]6.8 E9/LNormal2.0-7.5FClermont County HospitalComment on above:Performed By: #### [id number] #### [facility] [address] [place] [address]Csjfwjiuouj/100 WBC (Bld)70.4 %Yxqznw63.0-75.0[facility] HospitalComment on above:Performed By: #### [id number] #### [facility] [address] [place] [address]Fdmaozmx150.0 E9/IXelgfm170.0-500.0[facility] Comment on above:Performed By: #### [id number] #### [facility] [address] [place], [place] [address]Rrgytdyz mean volume (Bld) [Entitic vol]7.6 fLNormal6.4-10.8 [facility] HospitalComment on above:Performed By: #### [id number] #### [facility] [address] [place], [place] [address]CNQ (Bld) [#/Vol]3.8 E12/LLow4.3-5.9[facility] Comment on above:Performed By: #### [id number] #### [facility] [address] [place] [address]QJJ corrected for nucl RBC Auto (Bld) [#/Vol]9.6 E9/LNormal 4.0-11.0[facility] HospitalComment on above:Performed By: #### [id number] #### [facility] [address] [place] [address]DXFEJIVBLGtuhfqy By: SYSTEM SYSTEM on 59-10-2591Sywlcan [Mass/Vol]3.9 g/dLNormal3.3 - 5.0 gm/dLRemisol ChemALP [Catalytic activity/Vol] 70 [iU]/nCojqqw35 - 98 Int._Unit/LRemisol ChemALT No additional P-5'-P [Catalytic activity/Vol]23 [iU]/dNormal6 - 46 Int._Unit/LRemisol ChemAnion gap [Moles/Vol]9 mmol/LNormal6 - 16 mEq/LRemisol ChemAST [Catalytic activity/Vol]24 [iU]/dNormal5 - 43 Int._Unit/LRemisol ChemBilirubin [Mass/Vol]0.4 mg/dLNormal0.0 - 1.1 mg/dLRemisol ChemBilirubin.direct [Mass/Vol]0.1 mg/dLNormal0.0 - 0.4 mg/dLRemisol ChemBilirubin.indirect [Mass or moles/Vol]0.3 mg/dLNormal0.1 - 0.9 mg/dLRemisol ChemCalcium [Mass/Vol]8.8 mg/dLLow8.9 - 11.1 mg/dLRemisol Chem Chloride [Moles/Vol]107 mmol/ITbygjl470 - 111 mmol/LRemisol ChemCO2 [Moles/Vol] 28 mmol/QJwoxzy71 - 31 mmol/LRemisol ChemCreatinine [Mass/Vol]0.7 mg/dLNormal0.5 - 1.3 mg/dLRemisol DtogpIWB635 mL/min/1.73 q0Lmaojl>=59mL/min/1.73 e6Drhuolz ChemGlobulin (S) [Mass/Vol]3.1 g/dLNormal1.4 - 4.0 gm/dLRemisol ChemGlucose [Mass/Vol]101 mg/qLViahgi07 - 199 mg/dLRemisol ChemLactic Acid Lvl0.7 mmol/L Normal0.5 - 2.2 mmol/LRemisol ChemLipase [Catalytic activity/Vol]24 U/EPxtkvw41 - 58 unit/LRemisol ChemPotassium [Moles/Vol]3.4 mmol/LLow3.5 - 5.3 mmol/LRemisol ChemProtein [Mass/Vol]7.0 g/dLNormal6.0 - 7.8 gm/dLRemisol ChemTroponin HS3.50 pg/mLLow10.10 - 27.10 pg/mLRemisol ChemComment on above:Interpretive Data: The 95% CI (Confidence Interval) PPV (Positive Predictive Value) for myocardial i nfarction in females is 38 pg/mL, in males 51 pg/mL. The results should be used in conjunction withclinical conditions of myocardial infarction. (Access High Sensitivity Troponin I Instructions For Use, Katlyn Edson, October 2017)Urea nitrogen [Mass/Vol]12 mg/dLNormal5 - 21 mg/dLRemisol ChemUrea nitrogen/Creatinine [Mass ratio]17 mg/blGddpmk67 - 20Remisol ChemCT Abdomen/Pelvis w/o Contraston 06-35-4385GC Abdomen/Pelvis w/o ContrastExam Date/Time: 12/01/2023 13:34 EDT Reason for Exam: [...] Vasculature: No aneurysm. Minimal calcified atherosclerotic plaquing. Mesentery/peritoneum/retroperitoneum: No ascites, organized fluid collection, inflammatory changes, [...] Given? No Oral contrast amount in ml's: 0NormalFishSt. Agnes HospitalCalcium [Mass/volume] in Serum or PlasmaOrdered By: Aniket Bhandari on 25-92-7664Nrgurpz [Mass/Vol]8.6 mg/dL8.6-10.3FAdena Health SystemCalcium [Mass/Vol] Calcium [Mass/volume] in Serum or Plasma8.6-10.3FAdena Health SystemCalcium oxalate crystals [Presence] in Urine by Computer assisted method Ordered By: Aniket Bhandari on 09-64-1312Tirjuhu oxalate crystals Computer assisted Ql (U)3+ [HPF][facility] Orthopedic CenterCalcium oxalate crystals Computer assisted Ql (U)Calcium oxalate crystals [Presence] in Urine by Computer assisted methodCrystal Clinic Orthopedic CenterCarbon dioxide, total [Moles/volume] in Serum or PlasmaOrdered By: Aniket Bhandari on 47-00-3752KW1 [Moles/Vol]24.9 mmol/L21.0-31.0[facility] Orthopedic CenterCO2 [Moles/Vol] Carbon dioxide, total [Moles/volume] in Serum or Cujmsm48.0-31.0[facility] Orthopedic CenterChloride [Moles/volume] in Serum or PlasmaOrdered By: Aniket Bhandari on 81-07-0538Zasvrigz [Moles/Vol]108 mmol/DCifg04-460SqpoimsjmCrystal Clinic Orthopedic CenterChloride [Moles/Vol]Chloride [Moles/volume] in Serum or FqwqqbQiel31-727BkxqwhaquCrystal Clinic Orthopedic CenterColor Auto (U)Ordered By: Aniket Bhandari on 61-40-6972Crscu (U)YellowYelMemorial Hospital Color (U)Color of Urine by AutoYelMemorial HospitalCreatinine [Mass/volume] in Serum or PlasmaOrdered By: Aniket Bhandari on 12-01-2023 Creatinine [Mass/Vol]0.74 mg/dL0.60-1.20[facility] Creatinine [Mass/Vol]Creatinine [Mass/volume] in Serum or Plasma0.60-1.20 [facility] Clinical Summaryon [id number] Clinical SummaryED Clinical Summary [place] [address] ED Clinical Summary Person Information Name: JERAD TARCY [place] Age: 48 Years : 1975 Sex: Female Language: Malagasy PCP: Mayra Rincon Marital Status: Visit Id: Visit Reason: [...] 12/01/2023 14:28:11 12/01/2023 14:28:11 12/01/2023 14:28:11 ADDRESS: [address] [place], [place] [address]Jazmine [facility] [id number] [facility] DOC NOTES: MEDICAL INFORMATION: Prescriptions Given: Medications [...] EDUCATION INFORMATION: Instructions: Hypokalemia; Flank Pain, Adult, Smuz-fp-Cynx; Abdominal Pain, Adult, Obkt-ad-Xemp Follow up: With: Address: When: Mayra Post, [facility] A, [place] [address] Business (1) In 3 days 12/04/2023 DIAGNOSIS: 1:Hypokalemia; 2:Flank painNormalKirby Huang Medical CenterED Note-Nursingon [id number] Note-NursingED Note-Nursing Pt requesting pain medication, GINGER Weinstein aware. No further orders at this time.[facility] CenterED Note-Physicianon [phone] Note-PhysicianED Note-Physician Basic Information Time Seen: Kristie Boss PA-C 12/01/2023 11:58 Chief Complaint swelling in [...] or urgency. She denies constipation or diarrhea. Shedenies any chest pain or shortness of breath. [...] production, wheezing, hemoptysis, shortness of breath, dyspnea onexertion Gastrointestinal: Denies abdominal pain, unintentional weight loss, difficulty swallowing, indigestion, bloating, cramping, loss of appetite, nausea, vomiting, diarrhea, constipation, hematochezia, melena. + Bilateral flank pain Genitourinary: Denies any incontinence of urine, dysuria, hematuria, nocturia, polyuria, hesitancy,frequency, urgency, burning. + Decreased urinary output Musculoskeletal: [...] STEMI. White blood count 9.6, hemoglobin 12.1, qtyuggyrpq19.4, platelet 352. Sodium 141, potassium 3.4, chloride [...] is to return to (more content not included)...[facility] Comment on above:Result Comment: Electronically Signed By: Kristie Boss PA-C\.br\Date and Time Signed: 12/01/23 14:25 EDT\.br\Electronically Co- Signed By: Balbina Bryant M.D.\.br\Date and Time Co-Signed: 12/01/23 19:41 EDTED Patient Summaryon [id number] Patient SummaryED Patient Summary [address] [address] Patient Discharge Instructions Person Information Name: JERAD TRACY Age: 48 Years Arrival Date: 12/01/2023 11:42:40 Discharge Diagnosis: 1:Hypokalemia; 2:Flank pain Primary Care Physician: Mayra Rincon Provider Information Primary Provider: Balbina Bryant M.D. Advanced Dietetic Intern:None The exam and treatment you received in the Emergency Department were for an urgent problem and are not intended as complete care. It is important that you follow up with a doctor, nurse practitioner,or physician?s construction assistant for ongoing care. If your symptoms become worse or you do not improve as expected and you are unable to reach your usual health care provider, you should return to the Emergency Department. We are available 24 hours a day. JERAD TRACY has been given the following list of patient education materials, prescriptions andfollow-up instructions: Follow-up Instructions: With: Address: When: Mayra Rosas [address] [place] [address] A, [place] [phone] Business (1) In 3 days 12/04/2023 In the event that this physician does not participate in your insurance network, please consult with your insurance company to find a nearby participating provider. Patient Education Materials: Hypokalemia; Flank Pain, Adult, Hcgn-wz-Jjyw; Abdominal Pain, Adult, Cely-zj-Fwbm A MESSAGE TO ALL PATIENTS REGARDING OPIOIDS PRESCRIPTION OPIOIDS: WHAT YOU NEED TO KNOW Prescription opioids can be used to help relieve nuxhivhy-zf-llwikn pain and are often prescribed following a [...] and have fewer risks and side effects. Optionsmay include: ? Pain relievers such as acetaminophen, [...] unused prescription opioids: Find your community drug take- back program or yourpharmacy mail-back program, or flush them down the toilet, following guidance from the Food and Drug Administration (www.fda.gov/Drugs/ResourcesForYou). ? Visit www.cdc.gov/drugoverdose to learn about the risks of opioids abuse and overdose. ? If you believe you may be struggling with addiction, tell your health childcare aide (more content not included)...[facility] Eosinophils Auto (Bld) [#/Vol]Ordered By: Aniket Bhandari on 26-88-7784Xktpppkjiqu (Bld) [#/Vol]0.3 10*3/uL0.0-0.45[facility] Orthopedic CenterEosinophils (Bld) [#/Vol]Automated eosinophil count0.0-0.45[facility] Eosinophils/100 WBC Auto (Bld)Ordered By: Aniket Bhandari on 12-01-2023 Eosinophils/100 WBC (Bld)3.3 %.[facility]opedic CenterEosinophils/100 WBC (Bld)Automated eosinophil %.[facility]opedic CenterEpithelial cells.renal [#/area] in Urine by Computer assisted methodOrdered By: Aniket Bhandari on 23-96-7523Gcoaqwgzre cells.renal Computer assisted (U) [#/Area]1-2 [HPF] High0-1FAdena Health SystemEpithelial cells.renal Computer assisted (U) [#/Area]Epithelial cells.renal [#/area] in Urine by Computer assisted methodHigh01FAdena Health SystemEpithelial cells.squamous [#/area] in Urine sediment by Automated countOrdered By: Aniket Bhandari on 12-01-2023 Epithelial cells.squamous Auto (Urine sed) [#/Area]10-19 [HPF]High0-2FAdena Health SystemEpithelial cells.squamous Auto (Urine sed) [#/Area] Epithelial cells.squamous [#/area] in Urine sediment by Automated countHigh0-2 [facility] CenterErythrocyte distribution width Auto (RBC) [Ratio]Ordered By: Aniket Bhandari on 48-30-2742Defhqoyofpo distribution width (RBC) [Ratio]Erythrocyte distribution width [Ratio] by Automated count11.9-15.3 [facility]opedic CenterErythrocyte distribution width [Ratio] by Automated countOrdered By: SYSTEM SYSTEM on 77-95-3796Qlzzkcdphip distribution width (RBC) [Ratio]14.1 %11.9-15.3Remisol HemeErythrocytes [#/area] in Urine sediment by Automated countOrdered By: Aniket Bhandari on 77-99-1870AZC Auto (Urine sed) [#/Area]1-2 [HPF]0-4FAdena Health SystemRBC Auto (Urine sed) [#/Area]Erythrocytes [#/area] in Urine sediment by Automated count0-4FAdena Health SystemGlobulin Calc (S) [Mass/Vol]Ordered By: Aniket Bhandari on 93-59-5161Wdrgbrln (S) [Mass/Vol]3.0 g/dLCrystal Clinic Orthopedic Center Globulin (S) [Mass/Vol]Serum globulin measurement by calculation (mass/volume) [facility] CenterGlucose [Mass/volume] in Serum or PlasmaOrdered By: Aniket Bhandari on 70-28-0604Vdsfctd [Mass/Vol]104 mg/gEFymz15-277XdtfqkbgvCrystal Clinic Orthopedic CenterComment on above:ADA recommended reference rangeRandom Glucose Reference Range is dependent on time and content of last meal. Glucose of more than 200 mg/dL in a nonstressed, ambulatory subject supports the diagnosisof Diabetes Mellitus.Glucose [Mass/Vol]Glucose [Mass/volume] in Serum or PwamkvIiff87-038HefdlibnzCrystal Clinic Orthopedic CenterComment on above:ADA recommended reference rangeRandom Glucose Reference Range is dependent on time and content of last meal. Glucose of more than 200 mg/dL in a nonstressed, ambulatory subject supports the diagnosisof Diabetes Mellitus.Glucose [Mass/volume] in Urine by Test stripOrdered By: Aniket Bhnadari on 12-01-2023 Glucose Test strip (U) [Mass/Vol]Normal mg/dLNoUniversity Hospitals Samaritan Medical CenterGlucose Test strip (U) [Mass/Vol]Glucose [Mass/volume] in Urine by Test stripNoUniversity Hospitals Samaritan Medical CenterHCG ( test) IA.rapid Ql (U) Ordered By: Aniket Bhandari on 04-15-9460ZGN ( test) Ql (U)Negative [facility] CenterHCG ( test) Ql (U)Urine human chorionic gonadotropin (hCG) detection by immunoassayCrystal Clinic Orthopedic CenterHEMATOLOGYOrdered By: SYSTEM SYSTEM on 67-65-4984Pqkmelzfb/100 WBC (Bld) 0.2 %Normal0.0 - 2.0 %Remisol HemeBasophils/Leukocytes Auto (Bld) [Pure # fraction]0.0 E9/LNormal0.0 - 0.2 E9/LRemisol HemeEosinophils (Bld) [#/Vol]0.3 E9/LNormal0.0 - 0.5 E9/LRemisol HemeEosinophils/100 WBC (Bld)3.1 %Normal0.0 - 8.0 %Remisol HemeHematocrit (Bld) [Volume fraction]35.4 %Blfsca40.0 - 46.0 % Remisol HemeHemoglobin (Bld) [Mass/Vol]12.1 g/wNYizzso89.0 - 16.0 gm/dLRemisol HemeLymphocytes (Bld) [#/Vol]1.9 E9/LNormal1.0 - 4.0 E9/LRemisol Heme Lymphocytes/100 WBC (Bld)20.2 %Dgwpyd66.0 - 50.0 %Remisol HemeMCH (RBC) [Entitic mass]31.9 pvQqpwoc69.0 - 34.0 pgRemisol HemeMCHC (RBC) [Mass/Vol]34.3 g/dL Ftngwf92.4 - 36.0 gm/dLRemisol HemeMCV (RBC) [Entitic vol]93.0 jXGakcmy10.0 - 100.0 fLRemisol HemeMonocytes (Bld) [#/Vol]0.6 E9/LNormal0.2 - 1.0 E9/LRemisol HemeMonocytes/100 WBC (Bld)6.1 %Normal4.0 - 14.0 %Remisol HemeNeutrophils (Bld) [#/Vol]6.8 E9/LNormal2.0 - 7.5 E9/LRemisol HemeNeutrophils/100 WBC (Bld)70.4 % Fycqbw21.0 - 75.0 %Remisol LwzeJhttpgbd770.0 E9/TUmptaa465.0 - 500.0 E9/LRemisol HemePlatelet mean volume (Bld) [Entitic vol]7.6 fLNormal6.4 - 10.8 fLRemisol HemeRBC (Bld) [#/Vol]3.8 E12/LLow4.3 - 5.9 E12/LRemisol HemeWBC corrected for nucl RBC Auto (Bld) [#/Vol]9.6 E9/LNormal4.0 - 11.0 E9/LRemisol HemeHematocrit Auto (Bld) [Volume fraction]Ordered By: Aniket Bhandari on 43-30-5226Fvvophnkpr (Bld) [Volume fraction]35.8 %34.0-46.4FAdena Health System Hematocrit (Bld) [Volume fraction]Hematocrit [Volume Fraction] of Blood by Automated count34.0-46.4FAdena Health SystemHemoglobin Test strip Ql (U)Ordered By: Aniket Bhandari on 98-65-9020Eibdquegfe Ql (U)NegativeNegative [facility]opedic CenterHemoglobin Ql (U)Hemoglobin [Presence] in Urine by Test stripNegativeCrystal Clinic Orthopedic CenterHemoglobin [Mass/volume] in BloodOrdered By: Aniket Bhandari on 31-97-3783Klmodtdhgy (Bld) [Mass/Vol]12.0 g/dL11.8-15.4FAdena Health SystemHemoglobin (Bld) [Mass/Vol] Hemoglobin [Mass/volume] in Blood11.8-15.4FAdena Health SystemHep Func Panelon 46-99-8821Jtkqags [Mass/Vol]3.9 g/dLNormal3.3-5.0Ohio[facility] Berger HospitalComment on above:Performed By: #### [id number] #### [facility] [address] [place], [place] [address]Vnbuhne/Globulin (S) [Mass conc ratio]1.9Vdnzrk0.1-2.2Fisher [facility] Shock Trauma CenterComment on above:Performed By: #### [id number] #### [facility] [address] [place], [place] [address]MPK [Catalytic activity/Vol]70 Int._Unit/BUwmclv30-62NjcggdOhiohealth Berger HospitalComment on above:Performed By: #### [id number] #### [facility] [address] [place] [address] No additional P-5'-P [Catalytic activity/Vol]23 Int._Unit/L Normal6-46Ohiohealth Berger HospitalComment on above:Performed By: #### [id number] #### [facility] [address] [place] [address]DAS [Catalytic activity/Vol]24 Int._Unit/LNormal5-43Ohiohealth Berger HospitalComment on above:Performed By: #### [id number] #### [facility] [address] [place] [address]Jnfemvdvb [Mass/Vol]0.4 mg/dLNormal0.0-1.1FClermont County HospitalComment on above:Performed By: #### [id number] #### [facility] [address] [place] [address]Vpkuiflpd.direct [Mass/Vol]0.1 mg/dLNormal0.0-0.4FClermont County HospitalComment on above:Performed By: #### [id number] #### [facility] [address] [place] [address]Ufvxhtyop.indirect [Mass or moles/Vol]0.3 mg/dLNormal0.1-0.9 [facility] Berger HospitalComment on above:Performed By: #### [id number] #### [facility] [address] [place], [place] [address]Bdytvlky (S) [Mass/Vol]3.1 g/dLNormal1.4-4.0Ohio[facility] Berger HospitalComment on above:Performed By: #### [id number] #### [facility] [address] [place] [address]Iesjbjq [Mass/Vol]7.0 g/dLNormal6.0-7.8Ohio[facility] Berger HospitalComment on above:Performed By: #### [id number] #### [facility] [address] [place], [place] [address]Qmlbtgb casts [#/area] in Urine sediment by Automated count Ordered By: Aniket Bhandari on 61-49-2348Gktbfis casts Auto (Urine sed) [#/Area]0-8 [LPF]0-8[facility]opedic CenterHyaline casts Auto (Urine sed) [#/Area]Hyaline casts [#/area] in Urine sediment by Automated count0-8[facility]opedic CenterKetones Test strip Ql (U)Ordered By: Aniket Bhandari on 92-22-2950Spfpczs Ql (U)NegativeNegativeCrystal Clinic Orthopedic CenterKethancock regional hospital Ql (U)Ketones [Presence] in Urine by Test stripNegativeCrystal Clinic Orthopedic CenterLactic Acidon 41-97-3679Yidvje Acid Lvl0.7 mmol/LNormal0.5-2.2 [facility] HospitalComment on above:Performed By: #### [id number] #### [facility] [address] [place], [place] [address]Ivhmlstnk esterase [Presence] in Urine by Test stripOrdered By: Aniket Bhandari on 92-31-2189Vinkbpzkn esterase Test strip Ql (U)NegativeNegative [facility] CenterLeukocyte esterase Test strip Ql (U)Leukocyte esterase [Presence] in Urine by Test stripNegRiverview Health InstituteLeukocytes [#/area] in Urine sediment by Automated countOrdered By: Ainket Bhandari on 35-38-2582TWZ Auto (Urine sed) [#/Area]1-2 [HPF]0-4FAdena Health SystemWBC Auto (Urine sed) [#/Area]Leukocytes [#/area] in Urine sediment by Automated count0-4FAdena Health SystemLeukocytes [#/volume] corrected for nucleated erythrocytes in Blood by Automated coun Ordered By: Aniket Bhandari on 69-66-6727GMT corrected for nucl RBC Auto (Bld) [#/Vol]8.8 10*3/uL3.8-11.6FAdena Health SystemWBC corrected for nucl RBC Auto (Bld) [#/Vol]Leukocytes [#/volume] corrected for nucleated erythrocytes in Blood by Automated coun3.8-11.6FAdena Health System Lipase Levelon 45-33-4748Ruabis [Catalytic activity/Vol]24 U/SGdnitd47-96Dlqwrr R [facility] Cow[facility] Shock Trauma CenterComment on above:Performed By: #### [id number] #### [facility] [address] [place], [place] [address]Gcdlze [Enzymatic activity/volume] in Serum or PlasmaOrdered By: Aniket Bhandari on 69-52-2489Rfaida [Catalytic activity/Vol]23.0 U/L11.0-82.0 [facility]opedic CenterLipase [Catalytic activity/Vol]Lipase [Enzymatic activity/volume] in Serum or Gedgdg69.0-82.0[facility]opedic CenterLymphocytes Auto (Bld) [#/Vol]Ordered By: Aniket Bhandari on 99-27-2933Qdwlpvfuuck (Bld) [#/Vol]2.4 10*3/uL1.00-4.8[facility]opedic CenterLymphocytes (Bld) [#/Vol]Lymphocytes [#/volume] in Blood by Automated count1.00-4.8[facility] CenterLymphocytes/100 WBC Auto (Bld) Ordered By: Aniket Bhandari on 61-34-5347Copujgfywjp/100 WBC (Bld)27.1 %.[facility]opedic CenterLymphocytes/100 WBC (Bld)Lymphocytes/100 leukocytes in Blood by Automated count.[facility] Auto (RBC) [Entitic mass]Ordered By: Aniket Bhandari on 14-87-6789VBA (RBC) [Entitic mass]31.2 pg24.7-34.3FMercy Health Perrysburg Hospital (RBC) [Entitic mass]MCH [Entitic mass] by Automated count24.7-34.3FC[facility] Auto (RBC) [Mass/Vol]Ordered By: Aniket Bhandari on 99-66-7757SIED (RBC) [Mass/Vol]33.5 g/dL32.0-35.0[facility] CenterMCHC (RBC) [Mass/Vol]MCHC [Mass/volume] by Automated count32.0-35.0[facility] CenterMCV Auto (RBC) [Entitic vol]Ordered By: Aniket Bhandari on 32-63-7077GFQ (RBC) [Entitic vol]93.2 bK79-118HzxyubpvsCrystal Clinic Orthopedic CenterMCV (RBC) [Entitic vol]MCV [Entitic volume] by Automated ixzud07-520BulnxshlaCrystal Clinic Orthopedic Center Monocyte distribution width [Entitic volume] in Blood by AutomatedOrdered By: Aniket Bhandari on 28-46-8769Ticqsuoh distribution width Auto (Bld) [Entitic vol] 24.15 %High0.00-20.00[facility]opedic CenterComment on above:For adults in ED, MDW > 20.0 may be associated with a higher risk of sepsis during the first 12 hrs of hospital admissionMonocyte distribution width Auto (Bld) [Entitic vol]Monocyte distribution width [Entitic volume] in Blood by Automated High0.00-20.00[facility]opedic CenterComment on above:For adults in ED, MDW > 20.0 may be associated with a higher risk of sepsis during the first 12 hrs of hospital admissionMonocytes Auto (Bld) [#/Vol]Ordered By: Aniket Bhandari on 30-51-3123Qwccuzkzb (Bld) [#/Vol]0.7 10*3/uL0.0-0.8[facility]opedic CenterMonocytes (Bld) [#/Vol]Automated blood monocyte count0.0-0.8 [facility] CenterMonocytes/100 WBC Auto (Bld)Ordered By: Aniket Bhandari on 84-31-3797Wxyllagyc/100 WBC (Bld)7.8 %.[facility] CenterMonocytes/100 WBC (Bld)Automated monocyte %.[facility] CenterMucus [Presence] in Urine by AutomatedOrdered By: Aniket Bhandari on 48-80-0387Prstb Auto Ql (U)2+ [LPF]AbnormalCrystal Clinic Orthopedic Center Mucus Auto Ql (U)Mucus [Presence] in Urine by AutomatedAbnormalCrystal Clinic Orthopedic CenterNeutrophils Auto (Bld) [#/Vol]Ordered By: Aniket Bhandari on 98-14-4348Jjvgxioonxo (Bld) [#/Vol]5.4 10*3/uL1.8-7.7FAdena Health SystemNeutrophils (Bld) [#/Vol]Neutrophils [#/volume] in Blood by Automated count1.8-7.7FAdena Health SystemNeutrophils/100 WBC Auto (Bld) Ordered By: Aniket Bhandari on 63-81-9378Dmtbpxfhpks/100 WBC (Bld)61.5 %.[facility] CenterNeutrophils/100 WBC (Bld)Automated neutrophil %.[facility]opedic CenterNitrite Test strip Ql (U)Ordered By: Aniket Bhandari on 48-14-6094Isxlobx Ql (U)NegativeNegativeCrystal Clinic Orthopedic CenterNiite Ql (U)Nitrite [Presence] in Urine by Test stripNegRiverview Health InstituteNo Panel InformationOrdered By: Aniket Bhandari on 12-01-2023 Estimated GFR (CKD-EPI)> 60.0 mL/MinCrystal Clinic Orthopedic CenterPharmacy Creatinine Clearance (Mubf494.43[facility] CenterNucleated erythrocytes [Presence] in Blood by Automated countOrdered By: Aniket Bhandari on 17-73-7808Xwlobdjmu RBC Auto Ql (Bld)0.0 /100{WBC}0-0.5FAdena Health SystemNucleated RBC Auto Ql (Bld)Nucleated erythrocytes [Presence] in Blood by Automated count0-0.5FAdena Health SystemPlatelet mean volume Auto (Bld) [Entitic vol]Ordered By: Aniket Bhandari on 53-29-4588Pillunrk mean volume (Bld) [Entitic vol]8.7 fL6.3-10.7FAdena Health System Platelet mean volume (Bld) [Entitic vol]Platelet mean volume [Entitic volume] in Blood by Automated count6.3-10.7FAdena Health SystemPlatelets Auto (Bld) [#/Vol]Ordered By: Aniket Bhandari on 18-99-5818Ksrsrunzk (Bld) [#/Vol]368 10*3/zU385-935KjllabuhvCrystal Clinic Orthopedic CenterPlatelets (Bld) [#/Vol]Platelets [#/volume] in Blood by Automated sxaju743-758WzhpvxtovCrystal Clinic Orthopedic Center Potassium [Moles/volume] in Serum or PlasmaOrdered By: Aniket Bhandari on 32-01-8948Wjkgskmcn [Moles/Vol]3.7 mmol/L3.5-5.1FAdena Health SystemPotassium [Moles/Vol]Potassium [Moles/volume] in Serum or Plasma3.5-5.1 [facility] CenterProtein Test strip (U) [Mass/Vol]Ordered By: Aniket Bhandari on 58-53-7490Qfsjcds (U) [Mass/Vol]Trace mg/dLHighNegativeCrystal Clinic Orthopedic CenterProtein (U) [Mass/Vol]Protein [Mass/volume] in Urine by Test stripHighNegativeCrystal Clinic Orthopedic CenterProtein [Mass/volume] in Serum or PlasmaOrdered By: Aniket Bhandari on 42-47-0632Tuipbqi [Mass/Vol]6.9 g/dL 6.4-8.9[facility] CenterProtein [Mass/Vol]Protein [Mass/volume] in Serum or Plasma6.4-8.9[facility] CenterRB Auto (Bld) [#/Vol] Ordered By: Aniket Bhandari on 87-53-8298CFC (Bld) [#/Vol]3.84 10*6/uL3.60-5.00 [facility] CenterRBC (Bld) [#/Vol]Erythrocytes [#/volume] in Blood by Automated count3.60-5.00[facility] Health Hamiltonerum or plasma albumin/globulin mass ratioOrdered By: Aniket Bhandari on 12-01-2023 Albumin/Globulin [Mass ratio]Serum or plasma albumin/globulin mass ratio [facility] Hamiltonerum or plasma albumin/globulin mass ratio Ordered By: SYSTEM SYSTEM on 58-71-5128Bpabnjb/Globulin [Mass ratio]1.3 {ratio} Remisol ChemSerum or plasma anion gap determinationOrdered By: Aniket Bhandari on 97-99-4028Lfinm gap [Moles/Vol]11.8 mmol/L6.0-15.0[facility] CenterAnion gap [Moles/Vol]Serum or plasma anion gap determination6.0-15.0 [facility] Hamiltonerum or plasma non-glucuronidated bilirubin measurement (mass/volume)Ordered By: Aniket Bhandari on 12-01-2023 Bilirubin.indirect [Mass/Vol]0.3 mg/dLCrystal Clinic Orthopedic Center Bilirubin.indirect [Mass/Vol]Serum or plasma non-glucuronidated bilirubin measurement (mass/volume)[facility] Hamiltonodium [Moles/volume] in Serum or PlasmaOrdered By: Aniket Bhandari on 67-27-9140Esgsys [Moles/Vol]Sodium [Moles/volume] in Serum or Aplesj397-082BcirfyswyKettering Health Hamiltonodium [Moles/volume] in Serum or PlasmaOrdered By: SYSTEM SYSTEM on 00-32-8186Wxcwbg [Moles/Vol]141 mmol/I312-270Agjebif ChemSpecific gravity Test strip (U) [Rel density]Ordered By: Aniket Bhandari on 24-04-6481Wxqkaazs gravity (U) [Rel density] 1.0261.001-1.030[facility] Health Hamiltonpecific gravity (U) [Rel density]Specific gravity of Urine by Test strip1.001-1.030[facility]opedic CenterTroponin 0 Hr.on 65-04-6984Zeqzftda HS3.50 pg/mLLow10.10-27.10 [facility] HospitalComment on above:Result Comment: The 95% CI (Confidence Interval) PPV (Positive Predictive Value) for myocardial infarction in females is 38 pg/mL, in males 51 pg/mL. The results should be used in conjunction with clinical conditions of myocardial infarction. (Access High Sensitivity Troponin I Instructions For Use, Katlyn Allouez, October 2017)Performed By: #### [id number] #### [facility] [address], [place] [address]OV with Cult Rflxon 88-70-1057Uwerkxrzs Ql (U)NegativeNormal NegativeFisher R Adams Cowley Shock Trauma CenterComment on above:Performed By: #### [id number] #### [facility] [address] [place], [place] [address]Rtnjirn (U)Ex.TurbidAbnormalClearFisher R [facility] Comment on above:Performed By: #### [id number] #### [facility] [address] [place], [place] [address]Qmifs (U)YellowNormalYellowOhiohealth Berger HospitalComment on above:Result Comment: Microscopic readings are only performed on those samples that meet specific criteria set forth by [facility].Performed By: #### [id number] #### [facility] [address] [place], [place] [address]Srtrjnvs.amorphous Computer assisted Ql (U)PresentAbnormal [facility] HospitalComment on above:Performed By: #### [id number] #### [facility] [address] [place], [place] [address]Pdflrnwoya cells.squamous Auto (Urine sed) [#/Area]0-2Invalid Interpretation CodeOhiohealth Berger HospitalComment on above:Performed By: #### [id number] #### [facility] [address] [place], [place] [address]Yizhlja Ql (U)NegativeNormalNegKind[facility] Hospital [facility] Comment on above:Performed By: #### [id number] #### [facility] [address] [place], [place] [address]Anuhdvswgp Auto test strip (U) [Mass/Vol]NegativeNormalNegative [facility] HospitalComment on above:Performed By: #### [id number] #### [facility] [address] [place], [place] [address]Dpacbrr Auto test strip Ql (U)NegativeNormalNegativeOhiohealth Berger HospitalComment on above:Performed By: #### [id number] #### [facility] [address] [place], [place] [address]Isnmobwtr esterase Auto test strip Ql (U)NegativeNormalNegative [facility] HospitalComment on above:Performed By: #### [id number] #### [facility] [address] [place], [place] [address]Iweyb Auto Ql (U)NegativeNormalNegativeOhiohealth Berger HospitalComment on above:Performed By: #### [id number] #### [facility] [address] [place] [address] 05381Mujophh Auto test strip Ql (U)NegativeNormalNegativeOhiohealth Berger HospitalComment on above:Performed By: #### [id number] #### [facility] [address] [place] [address] 38597dV (U)8.0 [pH]Invalid Interpretation Code5.0-9.0Ohiohealth Berger HospitalComment on above:Performed By: #### [id number] #### [facility] [address] [place] [address] 54895Oqzuqsh Ql (U)NegativeNormalNegativeOhiohealth Berger Hospital Comment on above:Performed By: #### [id number] #### [facility] [address] [place] [address] 57542Jhgjagbh gravity (U) [Rel density]1.018Invalid Interpretation Code1.005-1.030Ohiohealth Berger HospitalComment on above:Performed By: #### [id number] #### [facility] [address] [place] [address] 79681Zzfpugbksrap (U) [Mass/Vol]NegativeNormalNegativeOhiohealth Berger HospitalComment on above:Performed By: #### [id number] #### [facility] [address] [place] [address] 94194Fson of Urine collection methodClean CatchNoProMedica Defiance Regional HospitalComment on above:Performed By: #### [id number] #### [facility] [address] [place] [address] 51557PMSCVWIBFULefilzw By: SYSTEM SYSTEM on 45-63-0054Huillebqx Ql (U)NegativeNormalNegativemg/dLHARPER [facility] UA Auto SSClarity (U)Ex.Turbid *ABN* (12/01/23 12:57 PM)Invalid Interpretation CodeClearFTMC UA Auto SSColor (U)Yellow 1 (12/01/23 12:57 PM)NormalYellowFT UA Auto SSComment on above:Interpretive Data: Microscopic readings are only performed on those samples that meet specific criteria set forth by [facility].Crystals.amorphous Computer assisted Ql (U)Present graded/HPFInvalid Interpretation CodeHARPER COUNTY COMM[facility] UA Auto SSEpithelial cells.squamous Auto (Urine sed) [#/Area]0-2 graded/HPFInvalid Interpretation CodeHARPER COUNTY [facility] UA Auto SSGlucose Ql (U)NegativeNormalNegativemg/dLHARPER [facility] UA Auto SSHemoglobin Auto test strip (U) [Mass/Vol]NegativeNormalNegativemg/dL [facility] UA Auto SSKetones Auto test strip Ql (U)NegativeNormalNegativemg/dLHARPER COUNTY [facility] UA Auto SSLeukocyte esterase Auto test strip Ql (U)NegativeNormalNegativeLeu/uLHARPER COUNTY [facility] UA Auto SSMucus Auto Ql (U)NegativeNormalNegativegraded/LPFFTMC UA Auto SS Nitrite Auto test strip Ql (U)NegativeNormalNegativemg/dLHARPER [facility] UA Auto SSpH (U) 8.0 *NA* (12/01/23 12:57 PM)Invalid Interpretation Code5.0 - 9.0[facility] UA Auto SSProtein Ql (U)NegativeNormalNegativemg/dLHARPER COUNTY [facility] [place] UA Auto SSSpecific gravity (U) [Rel density] 1.018 *NA* (12/01/23 12:57 PM)Invalid Interpretation Code1.005 - 1.030[facility]A Auto SS Urobilinogen (U) [Mass/Vol]NegativeNormalNegativemg/dLHARPER [facility] UA Auto SSURINALYSIS Ordered By: Kristie Boss on 58-60-6172PN Spec DescClean Catch (12/01/23 12:57 PM)NormalHARPER COUNTY COMM[facility] UA Auto SS Urea nitrogen [Mass/volume] in Serum or PlasmaOrdered By: Aniket Bhandari on 75-88-2973Djqb nitrogen [Mass/Vol]14 mg/dL10-16[facility] Orthopedic CenterUrea nitrogen [Mass/Vol]Urea nitrogen [Mass/volume] in Serum or Plasma10-16[facility]opedic CenterUrine appearanceOrdered By: Aniket Bhandari on 35-12-0296Qfkhqsdddj (U)ClearCleMercy Health Clermont HospitalUrobilinogen Test strip (U) [Mass/Vol]Ordered By: Aniket Bhandari on 59-38-9137Aojqwwpnptxj (U) [Mass/Vol]3 mg/dLHighNoUniversity Hospitals Samaritan Medical CenterUrobilinogen (U) [Mass/Vol]Urobilinogen [Mass/volume] in Urine by Test stripHighNoUniversity Hospitals Samaritan Medical CenterWBC Auto (Bld) [#/Vol]Ordered By: Aniket Bhandari on 02-71-9819EQI (Bld) [#/Vol]8.8 10*3/uL3.8-11.6FAdena Health SystemWBC (Bld) [#/Vol]Leukocytes [#/volume] in Blood by Automated count3.8-11.6FAdena Health SystemeGFRon 27-19-7618gIJJ034 mL/min/1.73 p1Yjzksr>=59Fisher [facility] Shock Trauma CenterComment on above:Order Comment: Order added by Discern Expert.Performed By: #### [id number] #### [facility] [address] [place], [place] [address]kX Test strip (U)Ordered By: Aniket Bhandari on 53-50-6866uW (U) 6.5 [pH]5.0-9.0[facility] Clinic Orthopedic CenterpH (U)pH of Urine by Test strip 5.0-9.0[facility]opedic CenterCoding Summaryon 55-32-5952Iblevw SummaryHTMLBase 64 JpqjtvweFZn8oIm+PGhlYWQ+AJ7JVNUsU50hrYWhuP1eP6IZNXpXJxblAYQWJVjRDtYmuqMeSI8okQJs ZXJu [file] LWN (more content not included)...[facility] CenterED Note-Physicianon 78-77-9252ZI Note-PhysicianNormUniversity Hospitals Geauga Medical CenterComment on above: Result Comment: Electronically Signed By: Manuel Naik PA-C\.br\Date and Time Signed: 11/26/2422:56 EDT\.br\Electronically Co-Signed By: Balbina Bryant M.D.\.br\Date and Time Co-Signed: 11/28/23 07:50 EDTED Clinical Summaryon 28-38-5507TC Clinical SummaryNormOhio State [facility]ing Hospital Patient Education Noteon 12-54-8481VE Patient Education NoteNormOhio State Harding Hospital Patient Summaryon 78-06-3118TB Patient SummaryNoAdena Fayette Medical CenterPLUMBWon 63-77-7439CEWMVUWTnhxulJeffrey Ville [address] [place] [place] [address] [place] Scan Report Signed with Addenda Patient Name: Jerad Tracy R ecord #: [id number] Date of : 1975 Account #:[id number] Age/Sex: 48 / F Location: ED Attending [...] Signed By: 11/27/23952 DD/ 9 TD/TT: 11/27/23949 Stonemason: BHARAT Exam/Order Verified? Y Exam Explained to Patient/Family? Y Was Patient Shielded? N Is Patient ? N Consent Form Completed? Hx Last Menstrual Period: NO CHANCE Does Patient have a Diabetic Device? No Diabetic Device Type: Was the Diabetic Device Removed? If NO: was Removal Consent form completed? Patient was informed of radiation exposure prior to scan? Verified by Technologist:[id number] Comment: cc: Flex Veliz MD PCP,NoNormalSaint Luke'S East HospitalAbsolute eosinophil countOrdered By: Flex Veliz on 21-89-0181Nnnnzabkw release from basophils measurementHistamine release from basophils measurement0.0-0.4FMercy Health Tiffin HospitalAutomated absolute lymphocyte countOrdered By: Flex Veliz on 12-94-5292Gbozgllinad # (Auto)2.6 10'3/uL0.5-3.5FMercy Health Tiffin HospitalAutomated absolute neutrophil countOrdered By: Flex Veliz on 82-55-1820Gqftlcsv Neutrophil8.5 10'3/uLHigh 1.5-5.6FMercy Health Tiffin HospitalBUN venousOrdered By: Flex Veliz on 99-26-1599Xoni nitrogen (BldV) [Mass/Vol]BUN venous7-18FMercy Health Tiffin HospitalBasic Metabolic Panelon 41-73-0566Fjomv gap [Moles/Vol]14 mmol/LHigh5-13 [facility] HospitalComment on above:Performed By: #### BM, CRP #### [facility] [address] [place], [place] [address]Dhtmuqn [Mass/Vol]9.1 mg/dLNormal8.4-10.2FCrittenton Behavioral HealthComment on above:Performed By: #### BM, CRP #### [facility] [address] [place], [place] [address]Ncngbdit [Moles/Vol]108 mmol/PHzea77-253RvliyiSaint Luke'S East HospitalComment on above:Performed By: #### BM, CRP #### [facility] [address] [place], [place] [address]KZ7 [Moles/Vol]20 mmol/PQop52-76DmlunfSaint Luke'S East Hospital Comment on above:Performed By: #### BM, CRP #### [facility] [address] [place], [place] [address]Jkkhjhluim [Mass/Vol]0.77 mg/dLNormal0.57-1.11Saint Luke'S East HospitalComment on above:Performed By: #### BM, CRP #### [place] [address] [place], [place] [address]EAK/1.73 sq M.predicted among non-blacks MDRD (S/P/Bld) [Vol rate/Area]mL/min/{1.73_m2}NormalmL/min/1.98s0RdkoksSaint Luke'S East Hospital Comment on above:Performed By: #### BM, CRP #### [facility] [address] [place], [place] [address]Guivuud [Mass/Vol]105 mg/yWGxhk84-548QmmfqeSaint Luke'S East HospitalComment on above:Performed By: #### BM, CRP #### [facility] [address] [place], [place] [address]Wbctvhocb [Moles/Vol]3.5 mmol/LNormal3.5-5.1FCrittenton Behavioral HealthComment on above:Performed By: #### BM, CRP #### [facility] [address] [place], [place] [address]Hmkwdm [Moles/Vol]142 mmol/LGhbhdv720-609DshkguSaint Luke'S East HospitalComment on above:Performed By: #### BM, CRP #### [facility] [address] [place], [place] [address]Putp nitrogen [Mass/Vol]10 mg/dLNormal7-18FCrittenton Behavioral HealthComment on above:Performed By: #### BM, CRP #### [place] [address] [place], [place] [address]Exuqsyqne Auto (Bld) [#/Vol]Ordered By: Flex Veliz on 91-80-2147Xhxjekjcd (Bld) [#/Vol]Automated basophil countLow0.1-0.2FMercy Health Tiffin HospitalBasophils/100 WBC Auto (Bld)Ordered By: Flex Veliz on 11-26-2023 Basophils/100 WBC (Bld)Automated basophil %0-1FMercy Health Tiffin HospitalBlood anion gapOrdered By: Flex Veliz on 15-79-4867Jueis gap (Bld) [Moles/Vol]Blood anion gapHigh5-13[facility] HospitalBlood erythrocytes count (number/volume)Ordered By: Flex Veliz on 46-93-8559TBM (Bld) [#/Vol]Blood erythrocytes count (number/volume)3.85-4.88[facility] HospitalBlaustin hospital and clinic platelets count (number/volume)Ordered By: Flex Veliz on 77-33-4703Tynnemvve (Bld) [#/Vol]Platelet count drvqjWxtv403-264CpxzhaCleveland Clinic Avon HospitalC Reactive Proteinon 11-26-2023 Reactive Protein1.0 mg/dLHigh<0.6FCrittenton Behavioral HealthComment on above:Performed By: #### BM, CRP #### [place] [address] [place], [place] [address]L reactive protein measurementOrdered By: Flex Veliz on 07-13-6415W-Reactive Protein1.0 mg/dLHigh<0.6FMercy Health Tiffin HospitalCalcium measurement (mass/volume)Ordered By: Flex Veliz on 59-49-1437Abjqhqh (Unsp spec) [Mass/Vol]Calcium measurement (mass/volume)8.4-10.2FMercy Health Tiffin HospitalComplete Blood Count with Diffon 95-57-3553Vcgixzhhm Absolute Auto0.0 10'3/uLLow0.1-0.2FCrittenton Behavioral HealthComment on above:Performed By: #### CBCD #### [facility] [address] [place], [place] [address]Dymbsyfvz/100 WBC (Bld)0 %Normal0-1FSaint John's Regional Health Center on above:Performed By: #### CBCD #### [facility] [address] [place] [place], [place] [address]Guwemgpedid Absolute Auto0.1 10'3/uLNormal0.0-0.4FSaint John's Regional Health Center on above:Performed By: #### CBCD #### [place] [address] [place] [place], [place] [address]Ntzbrvodhbd/100 WBC (Bld)1 %Low2-5FSaint John's Regional Health Center on above:Performed By: #### CBCD #### [place] [address] [facility] [address] [place], [place] [address]Houxzyumwii distribution width (RBC) [Ratio]13.2 %Normal 12.2-15.8[facility] on above:Performed By: #### CBCD #### [place] [address] [facility] [address] [place], [place] [address]Iglgaonjwz (Bld) [Volume fraction]41.1 %Vuygek85.6-44.1FSaint John's Regional Health Center on above:Performed By: #### CBCD #### [place] [address] [facility] [address] [place], [place] [address]Zcpvjvzwes (Bld) [Mass/Vol]13.8 g/rUNftgxy28.7-14.9[facility] on above:Performed By: #### CBCD #### [place] [address] [place], [place] [address]Qstlrfsjsiv Absolute Auto2.6 10'3/uLNormal0.5-3.5FSaint John's Regional Health Center on above:Performed By: #### CBCD #### [place] [address] [place], [place] [address]Dteczigwqea/100 WBC (Bld)22 %Vpoffb47-76GikpnlSaint Luke'S East HospitalComment on above:Performed By: #### CBCD #### [place] [address] [place], [place] [address]WJN (RBC) [Entitic mass]31.1 jjBqysaa73.8-33.2FCrittenton Behavioral HealthComment on above:Performed By: #### CBCD #### [place] [address] [place], [place] [address]YUD (RBC) [Entitic vol]92.6 tIFlnxga71.0-97.4FCrittenton Behavioral HealthComment on above:Performed By: #### CBCD #### [place] [address] [place], [place] [address]Ogfp Corpuscular HGB Conc33.6 g/eTHqkdni71.7-34.8[facility] on above:Performed By: #### CBCD #### [place] [address] [place], [place] [address]Ydyixonhs Absolute Auto0.7 10'3/uLNormal0.2-0.8[facility]S East HospitalCommclaren northern [place] on above:Performed By: #### CBCD #### [place] [address] [place], [place] [address]Lhxiflryk/100 WBC (Bld)6 %Normal4-12[facility] East HospitalCommclaren northern [place] on above:Performed By: #### CBCD #### [place] [address] [place], [place] [address]Sfsfqjpplt #8.5 10'3/uLHigh1.5-5.6FCrittenton Behavioral HealthComment on above:Performed By: #### CBCD #### [place] [address] [place], [place] [address]Esycjaoqyap/100 WBC (Bld)71 %Labwea74-72EvwoivSaint Luke'S East HospitalComment on above:Performed By: #### CBCD #### [place] [address] [place], [place] [address]Gmcuulfp Lpppi238 10'3/xQSvtn575-631BjqmnjKindred Hospital on above:Performed By: #### CBCD #### [place] [address] [place], [place] [address]Jaljwdkf mean volume (Bld) [Entitic vol]9.7 fLNormal7.6-10.6 [facility] on above:Performed By: #### CBCD #### [place] [address] [place], [place] [address]Rcn Blood Count4.44 10'6/uLNormal3.85-4.88[facility] on above:Performed By: #### CBCD #### [address] [address]Ksaas Blood Count11.9 10'3/uLHigh3.2-9.3FSaint John's Regional Health Center on above:Performed By: #### CBCD #### [address] [address]Ucmkwbpvxy (Bld) [Mass/Vol]Ordered By: Flex Veliz on 88-48-3038Lhzwhzvhfv [Mass/Vol]Blood creatinine measurement (mass/volume) 0.57-1.11[facility] 91-04-4362SBTgvzdeCleveland Clinic Avon Hospital [address] [place] [place] [address] Emergency Department Note Signed Patient Name: Jerad Tracy Medical [address] #: [id number] Date of : 1975 Account #: [id number] Age/Sex: 48 / F Location: ED Attending [...] another one placed at the [facility] where she had her previous surgery. [...] History History Provided by: Patient Preferred Language: Malagasy Usual Living Arrangement: With Spouse/Significant Other Smoking [...] previous incision with scant (more content not included)...[facility] HospitalED Clinical Summaryon 99-30-1587YT [facility] SummaryJ[facility] [address] [place] [address] ED Clinical Summary PERSON INFORMATION Name: JERAD TRACY Age: 48 Years Sex: FEMALE : 1975 MRN: Acct#: Visit Reason: Post surgical problem; BACK PAIN Arrival: 11/26/2023 18:54:46 Discharge: 11/26/2023 20:00:00 LOS: 000 01:06 Check In: 11/26/2023 18:54:46 Checkout:11/26/2023 20:00:00 Address: [address] [facility] [address] PCP: Mayra Mckeon PROVIDER INFORMATION VITALS INFORMATION Vital Sign [...] Instructions: Follow-Up: DIAGNOSIS: Patient Understands: Yes - Patient/family/caregiver verbalizes understanding of instructions given Comment:[facility] Patient Education Noteon 47-45-7932QR Patient Education NoteEducation MaterialsNoMetroHealth [facility] Patient Summaryon 11-84-2548WM Patient SummaryJ.[facility]. [facility] - [facility] Department [address] [place] [address] PATIENT DISCHARGE INSTRUCTIONS Patient Information Name: JERAD TRACY Age: 48 Years Date of : 1975 Reason For Visit: Post surgical problem; BACK PAIN Arrival Time: 11/26/2023 18:54:46 Primary Care Physician: Mayra Mckeon Attending Physician: Kristin Bryant MD Comment: Visit Diagnosis: Diagnoses This Visit Post surgical problem ([id number]) The Pharmacy at [facility] is open Saturday through Saturday from 9A to 6P and Saturday and Saturday from 9A to 5P Prescription Information: If you have been given a prescription for narcotics, seek immediate medical attention if you have any difficulty breathing or any sudden status changes such as confusion andsleepiness. If you or anyone you know is experiencing suicidal thoughts, mental health, alcohol and/or drug addiction problems; contact the [facility] 15/10 Crisis Hotline -Text 4HZDY ar 339356. If you received any narcotics, sedation, or [...] and treatment you received today in the [facility] Emergency Department were for an urgent problem and are not intended as complete care. It is important for you to follow up with a doctor, nurse practitioner, or physician?s construction assistant for ongoing care. If your symptoms become worse or you donot improve as expected and you are unable [...] so we can reach you if necessary. [facility] has provided you with a complete list of medications post discharge. Please inform your project control officer/provider of your visit and for further instruction [...] Centers for Disease Control and Prevention November 2013[facility] Eosinophils/100 WBC Auto (Bld)Ordered By: Flex Veliz on 11-26-2023 Eosinophils/100 WBC (Bld)Eosinophil percentage, automatedLow2-5FMercy Health Tiffin HospitalEstimated glomerular filtration rate (GFR) determinationOrdered By: Flex Veliz on 85-70-6162EDQ/1.73 sq M.predicted among non-blacks MDRD (S/P/Bld) [Vol rate/Area]mL/min/{1.73_m2}mL/min/1.50u1VzfrqzCleveland Clinic Avon Hospital Hematocrit Auto (Bld) [Volume fraction]Ordered By: Flex Veliz on 11-26-2023 Hematocrit (Bld) [Volume fraction]Automated blood hematocrit (percentage) 34.6-44.1FMercy Health Tiffin HospitalLaboratory - UrinalysisOrdered By: Flex Veliz on 00-67-4064Fkxjfjeuo esterase Test strip Ql (U)TraceNegativeCleveland Clinic Avon HospitalLymphocyte percentage, automatedOrdered By: Flex Veliz on 99-27-2012Xoyhvzkrbkw/100 WBC (Bld)22 %20-35C[facility] HospitalMCV (mean corpuscular volume) determinationOrdered By: Flex Veliz on 04-22-8051FBQ (RBC) [Entitic vol]Determination of erythrocyte mean corpuscular volume (MCV)83.0-97.4 [facility] HospitalMean corpuscular hemoglobin (MCH) determination Ordered By: Flex Veliz on 44-17-6421HID (RBC) [Entitic mass]31.1 pg27.8-33.2 [facility] HospitalMean corpuscular hemoglobin concentration (MCHC) determinationOrdered By: Flex Veliz on 67-41-2658NJFM (RBC) [Mass/Vol]33.6 g/dL 32.7-34.8[facility] HospitalMonocytes Auto (Bld) [#/Vol]Ordered By: Flex Veliz on 11-42-8559Bkjmtersu (Bld) [#/Vol]Automated blood monocyte count 0.2-0.8[facility] HospitalMonocytes/100 WBC Auto (Bld)Ordered By: Flex Veliz on 86-74-7362Azbtgaaqe/100 WBC (Bld)Monocyte percentage, automated4-12 [facility] HospitalMpvOrdered By: Flex Veliz on 41-67-0451Dluxciyy mean volume (Bld) [Entitic vol]9.7 fL7.6-10.6FMercy Health Tiffin HospitalMucus LM Ql (Urine sed)Ordered By: Flex Veliz on 63-73-9757Kdzrs Ql (Urine sed)Mucus detection in urine sediment by light microscopyCleveland Clinic Avon Hospital Neutrophils/100 WBC Manual cnt (Bld)Ordered By: Flex Veliz on 11-26-2023 Neutrophils/100 WBC (Bld)Manual blood neutrophil count as percentage of mqrdtaxegi57-93DmtseiCleveland Clinic Avon HospitalNo Panel InformationOrdered By: Flex Veliz on 25-94-1575Wbwpz BacteriaTrace /kgq8MmnhjbCleveland Clinic Avon HospitalOccult blood ur QLOrdered By: Flex Veliz on 79-80-7557Wbbvvqhdxy Ql (U)Occult blood ur QLNegativeCleveland Clinic Avon HospitalRDWOrdered By: Flex Veliz on 11-26-2023 Erythrocyte distribution width (RBC) [Ratio]13.2 %12.2-15.8Lima City Hospitalerum or plasma carbon dioxide measurement (moles/volume)Ordered By: Flex Veliz on 54-69-1190GA6 [Moles/Vol]Serum or plasma total carbon dioxide measurement (moles/volume)Him53-38UdqezpLima City Hospitalerum or plasma chloride measurement (moles/volume)Ordered By: Flex Veliz on 65-19-4128Trkvnszt [Moles/Vol]Serum or plasma chloride measurement (moles/volume)Qhrs07-852ZuudluLima City Hospitalerum or plasma glucose measurement (mass/volume)Ordered By: Flex Veliz on 22-35-4620Jgoifbq [Mass/Vol]Serum glucose measurement (mass/volume)Aorm62-727SnhvcsLima City Hospitalerum or plasma potassium measurement (moles/volume)Ordered By: Flex Veliz on 00-31-8714Wbgenpyrp [Moles/Vol]Serum or plasma potassium measurement (moles/volume)3.5-5.1FDayton VA Medical Centerpecific gravity Test strip (U) [Rel density]Ordered By: Flex Veliz on 91-25-6687Cbdfnryi gravity (U) [Rel density]Specific gravity ur dipstick1.005-1.030Lima City Hospitalquamous epithelial cells detection in urine sediment by light microscopyOrdered By: Flex Veliz on 88-27-4157Nnynfsdeee cells.squamous LM Ql (Urine sed)Squamous epithelial cells detection in urine sediment by light ymkckkadmu9IjjtkeCleveland Clinic Avon HospitalUA with Reflex Cultureon 87-22-0437Byuwcrhy IwhjnAJAMQAvgwnt3FihhezSaint Luke'S East HospitalComment on above:Performed By: #### UAREFLEX #### [facility] [address] [place], [place] [address]Zjhzl Urine1+ /hpfNormNortheast Missouri Rural Health NetworkComment on above:Performed By: #### UAREFLEX #### [facility] [address] [place], [place] [address]Kuaiidbm Epithelial Cell Urine6-60Axrcrt8MmpwfnSaint Luke'S East HospitalComment on above:Performed By: #### UAREFLEX #### [facility] [address] [place], [place] [address]DGT Urine0-2Clantz9ZdjhzeSaint Luke'S East HospitalComment on above:Performed By: #### UAREFLEX #### [facility] [address] [place], [place] [address]Qopzjmaasf (U)CLEARNormalCLEARSaint Luke'S East Hospital Comment on above:Performed By: #### UAREFLEX #### [facility] [address] [place], [place] [address]Uqxyhbanq UrineNegativeNormalNegChristian HospitalComment on above:Performed By: #### UAREFLEX #### [facility] [address] [place], [place] [address]Clbgh (U)YELLOWNormalYELLOWSaint Luke'S East Hospital Comment on above:Performed By: #### UAREFLEX #### [facility] [address] [place], [place] [address]Qotqdwc Urine UANegativeNormalNegChristian HospitalComment on above:Performed By: #### UAREFLEX #### [facility] [address] [place], [place] [address]Tdvrwfa Ql (U)NegativeNormalNegChristian HospitalComment on above:Performed By: #### UAREFLEX #### [facility] [address] [place], [place] [address]Elfcvqrdu esterase Test strip Ql (U)TRACENormalNegChristian HospitalComment on above:Performed By: #### UAREFLEX #### [facility] [address] [place], [place] [address]Quoauss UrineNegativeNormalNEGSSM Health CareComment on above:Performed By: #### UAREFLEX #### [facility] [address] [place], [place] [address]Wotnws Blood UrineNegativeNormalNegChristian HospitalComment on above:Performed By: #### UAREFLEX #### [facility] [address] [place], [place] [address]cK (U)7.0 [pH]Normal5.5-8.0[facility] Comment on above:Performed By: #### UAREFLEX #### [facility] [address] [place], [place] [address]Cspwkzu Urine (Multistix)NegativeNormalNegativeSaint Luke'S East HospitalComment on above:Performed By: #### UAREFLEX #### [facility] [address] [place], [place] [address]Srfjeavg [place] Urine1.223Ejsrme6.005-1.030[facility]'S East HospitalCommclaren northern [place] on above:Performed By: #### UAREFLEX #### [facility] [address] [place], [place] [address]Txvyxdfauxrj Urine0.2 EU/dLNormal0.2-1.0Saint [facility]'S East HospitalCommclaren northern [place] on above:Performed By: #### UAREFLEX #### [facility] [address] [place], [place] [address]Nzfav appearance determinationOrdered By: Flex Veliz on 18-77-4913Dzbyymhtva (U)Urine appearanceCLEPaulding County HospitalUrine bilirubin measurementOrdered By: Flex Veliz on 44-85-0992Qqxtxckpq Ql (U) NegativeNegSt. John of God HospitalUrine color determinationOrdered By: Flex Veliz on 64-16-3645Swouy (U)Urine colorYELWayne HealthCare Main Campus Urine glucose detection by automated test stripOrdered By: Flex Veliz on 33-18-2132Mhsmxhz Auto test strip Ql (U)Urine glucose detection by automated test stripMartin Memorial HospitalUrine ketones measurementOrdered By: Flex Veliz on 45-10-4712Apzcxcx Ql (U)NegativeNegSt. John of God HospitalUrine microscopic examination for leukocytesOrdered By: Flex Veliz on 79-57-7787Xpiuf Microscopic WBC0-2 /tec7JeibgnCleveland Clinic Avon HospitalUrine nitrite detection by automated test stripOrdered By: Flex Veliz on 23-19-3354Zdxklxm Auto test strip Ql (U)Urine nitrite detection by automated test stripChildren's Hospital of ColumbusUrine pH measurementOrdered By: Flex Veliz on 36-04-6148fH (U)pH of Urine5.5-8.0[facility] HospitalUrine protein measurementOrdered By: Flex Veliz on 96-45-8169Ekwbcyn Ql (U)NegativeMansfield HospitalUrine urobilinogen measurementOrdered By: Flex Veliz on 77-79-1210Xhsyukziebnu Ql (U)Urine urobilinogen measurement0.2-1.0[facility] HospitalVenous blood sodium measurementOrdered By: Flex Veliz on 54-29-0088Wtndni (BldV) [Moles/Vol]Venous blood sodium wygrfrhlyjm324-158HpvzfyCleveland Clinic Avon HospitalWBC totalOrdered By: Flex Veliz on 48-79-2122Owahj Blood Count11.9 10'3/uLHigh3.2-9.3FMercy Health Tiffin HospitalWhole blood hemoglobin measurement (mass/volume)Ordered By: Flex Veliz on 87-45-7430Ngyxtkhlhm (Bld) [Mass/Vol]Blood hemoglobin measurement (mass/volume)11.7-14.9[facility] HospitalAlanine aminotransferase [Enzymatic activity/volume] in Serum or PlasmaOrdered By: José Miguel Mcnamara on 87-50-4153FIM [Catalytic activity/Vol]22 U/L7-[facility] CenterALT [Catalytic activity/Vol]Alanine aminotransferase [Enzymatic activity/volume] in Serum or Plasma7[facility] CenterAlbumin [Mass/volume] in Serum or Plasma by Bromocresol green (BCG) dye binding methoOrdered By: José Miguel Mcnamara on 25-58-4300Confcwp BCG dye [Mass/Vol]3.8 g/dL3.5-5.7FAdena Health SystemAlbumin BCG dye [Mass/Vol]Albumin [Mass/volume] in Serum or Plasma by Bromocresol green (BCG) dye binding metho3.5-5.7FAdena Health SystemAlkaline phosphatase [Enzymatic activity/volume] in Serum or PlasmaOrdered By: José Miguel Mcnamara on 52-20-2140YLJ [Catalytic activity/Vol]65 U/P73-017LggofowxxCrystal Clinic Orthopedic CenterALP [Catalytic activity/Vol]Alkaline phosphatase [Enzymatic activity/volume] in Serum or Shbsqx13-570AnyhmgyxfCrystal Clinic Orthopedic Center Aspartate aminotransferase [Enzymatic activity/volume] in Serum or PlasmaOrdered By: José Miguel Mcnamara on 52-21-3083ZNS [Catalytic activity/Vol]18 U/L13-39 [facility] CenterAST [Catalytic activity/Vol]Aspartate aminotransferase [Enzymatic activity/volume] in Serum or Zsdwcp07-70FmvvdxsolCrystal Clinic Orthopedic CenterBasophils Auto (Bld) [#/Vol]Ordered By: José Miguel Mcnamara on 16-38-5825Chfurlcuq (Bld) [#/Vol]0.1 10*3/uL0.0-0.2FAdena Health SystemBasophils (Bld) [#/Vol]Automated basophil count0.0-0.2FAdena Health SystemBasophils/100 WBC Auto (Bld)Ordered By: José Miguel Mcnamara on 08-92-9310Iwbtnxykr/100 WBC (Bld)0.5 %.[facility] Basophils/100 WBC (Bld)Automated basophil %.[facility] Bilirubin.direct [Mass/volume] in Serum or PlasmaOrdered By: José Miguel Mcnamara on 32-05-0912Bglvvnvva.direct [Mass/Vol]0.00 mg/dLLow0.03-0.18FAdena Health SystemComment on above:If the DBIL is less than 0.1, IBIL is not able to becalculated.Bilirubin.direct [Mass/Vol]Bilirubin.direct [Mass/volume] in Serum or PlasmaLow0.03-0.18FAdena Health SystemComment on above:If the DBIL is less than 0.1, IBIL is not able to becalculated.Bilirubin.total [Mass/volume] in Serum or PlasmaOrdered By: José Miguel Mcnamara on 11-25-2023 Bilirubin [Mass/Vol]0.2 mg/dLLow0.3-1.0[facility] Bilirubin [Mass/Vol]Bilirubin.total [Mass/volume] in Serum or PlasmaLow0.3-1.0 [facility] CenterCalcium [Mass/volume] in Serum or PlasmaOrdered By: José Miguel Mcnamara on 68-14-6333Rvqttep [Mass/Vol]8.2 mg/dLLow8.6-10.3 [facility] CenterCalcium [Mass/Vol]Calcium [Mass/volume] in Serum or PlasmaLow8.6-10.3FAdena Health SystemCarbon dioxide, total [Moles/volume] in Serum or PlasmaOrdered By: José Miguel Mcnamara on 08-74-1753MA3 [Moles/Vol]26.0 mmol/L21.0-31.0[facility] CenterCO2 [Moles/Vol] Carbon dioxide, total [Moles/volume] in Serum or Yroyvi01.0-31.0[facility] CenterChloride [Moles/volume] in Serum or PlasmaOrdered By: José Miguel Mcnamara on 05-74-7773Twcpbnlp [Moles/Vol]106 mmol/Z61-225YbrhtoheaCrystal Clinic Orthopedic CenterChloride [Moles/Vol]Chloride [Moles/volume] in Serum or Xpqsge08-509HxvcqcwxfCrystal Clinic Orthopedic CenterCreatinine [Mass/volume] in Serum or PlasmaOrdered By: José Miguel Mcnamara on 04-85-6403Iuflsvdykk [Mass/Vol]0.92 mg/dL0.60-1.20[facility] CenterCreatinine [Mass/Vol]Creatinine [Mass/volume] in Serum or Plasma0.60-1.20[facility] Eosinophils Auto (Bld) [#/Vol]Ordered By: José Miguel Mcnamara on 11-25-2023 Eosinophils (Bld) [#/Vol]0.1 10*3/uL0.0-0.45[facility] Eosinophils (Bld) [#/Vol]Automated eosinophil count0.0-0.45[facility] CenterEosinophils/100 WBC Auto (Bld)Ordered By: José Miguel Mcnamara on 21-64-0589Nypmojamqcs/100 WBC (Bld)1.4 %.[facility] Eosinophils/100 WBC (Bld)Automated eosinophil %.[facility] CenterErythrocyte distribution width Auto (RBC) [Ratio]Ordered By: José Miguel Mcnamara on 35-44-0807Nqyobdsuswa distribution width (RBC) [Ratio]14.0 %11.9-15.3 [facility] CenterErythrocyte distribution width (RBC) [Ratio] Erythrocyte distribution width [Ratio] by Automated count11.9-15.3FAdena Health SystemGlobulin Calc (S) [Mass/Vol]Ordered By: José Miguel Mcnamara on 62-29-2453Cicgfkpt (S) [Mass/Vol]2.8 g/dLCrystal Clinic Orthopedic Center Globulin (S) [Mass/Vol]Serum globulin measurement by calculation (mass/volume) [facility] CenterGlucose [Mass/volume] in Serum or PlasmaOrdered By: José Miguel Mcnamara on 32-89-1420Qihpewa [Mass/Vol]105 mg/nJLswr79-134 [facility] CenterComment on above:ADA recommended reference rangeRandom Glucose Reference Range is dependent on time and content of last meal. Glucose of more than 200 mg/dL in a nonstressed, ambulatory subject supports the diagnosisof Diabetes Mellitus.Glucose [Mass/Vol]Glucose [Mass/volume] in Serum or MfkxcaCsuf11-637PxdjhuytnCrystal Clinic Orthopedic Center Comment on above:ADA recommended reference rangeRandom Glucose Reference Range is dependent on time and content of last meal. Glucose of more than 200 mg/dL in a nonstressed, ambulatory subject supports the diagnosisof Diabetes Mellitus. Hematocrit Auto (Bld) [Volume fraction]Ordered By: José Miguel Mcnamara on 46-80-8987Kkyhilhkjq (Bld) [Volume fraction]37.0 %34.0-46.4FAdena Health SystemHematocrit (Bld) [Volume fraction]Hematocrit [Volume Fraction] of Blood by Automated count34.0-46.4FAdena Health SystemHemoglobin [Mass/volume] in BloodOrdered By: José Miguel Mcnamara on 05-90-4364Qteclhnurr (Bld) [Mass/Vol]12.4 g/dL11.8-15.4FAdena Health SystemHemoglobin (Bld) [Mass/Vol]Hemoglobin [Mass/volume] in Blood11.8-15.4FAdena Health SystemLeukocytes [#/volume] corrected for nucleated erythrocytes in Blood by Automated counOrdered By: José Miguel Mcnamara on 46-71-8656ZHP corrected for nucl RBC Auto (Bld) [#/Vol]9.9 10*3/uL3.8-11.6FAdena Health SystemWBC corrected for nucl RBC Auto (Bld) [#/Vol]Leukocytes [#/volume] corrected for nucleated erythrocytes in Blood by Automated coun3.8-11.6FAdena Health SystemLymphocytes Auto (Bld) [#/Vol]Ordered By: José Miguel Mcnamara on 30-41-9965Ralrnhrdvgw (Bld) [#/Vol]2.6 10*3/uL1.00-4.8[facility] CenterLymphocytes (Bld) [#/Vol]Lymphocytes [#/volume] in Blood by Automated count1.00-4.8[facility] CenterLymphocytes/100 WBC Auto (Bld)Ordered By: José Miguel Mcnamara on 15-14-9912Huhspuhuzov/100 WBC (Bld) 26.5 %.[facility] CenterLymphocytes/100 WBC (Bld)Lymphocytes/100 leukocytes in Blood by Automated count.[facility] Auto (RBC) [Entitic mass]Ordered By: José Miguel Mcnamara on 77-79-6167YYE (RBC) [Entitic mass]31.6 pg24.7-34.3FMercy Health Perrysburg Hospital (RBC) [Entitic mass]MCH [Entitic mass] by Automated count24.7-34.3FMercy Health West HospitalHC Auto (RBC) [Mass/Vol]Ordered By: José Miguel Mcnamara on 61-46-0497QOGR (RBC) [Mass/Vol]33.6 g/dL32.0-35.0[facility]ic[facility] HospitalHC (RBC) [Mass/Vol]MCHC [Mass/volume] by Automated count32.0-35.0 [facility] CenterMCV Auto (RBC) [Entitic vol]Ordered By: José Miguel Mcnamara on 13-91-1533OGV (RBC) [Entitic vol]93.9 cC87-340VcglgbwqqChillicothe HospitalV (RBC) [Entitic vol]MCV [Entitic volume] by Automated bleul22-702CfmpzjfmuCrystal Clinic Orthopedic CenterMonocyte distribution width [Entitic volume] in Blood by AutomatedOrdered By: José Miguel Mcnamara on 11-25-2023 Monocyte distribution width Auto (Bld) [Entitic vol]19.84 %0.00-20.00[facility] CenterMonocyte distribution width Auto (Bld) [Entitic vol] Monocyte distribution width [Entitic volume] in Blood by Automated0.00-20.00 [facility] CenterMonocytes Auto (Bld) [#/Vol]Ordered By: José Miguel Mcnamara on 83-07-8618Vnpwwykue (Bld) [#/Vol]0.8 10*3/uL0.0-0.8 [facility] CenterMonocytes (Bld) [#/Vol]Automated blood monocyte count0.0-0.8[facility] CenterMonocytes/100 WBC Auto (Bld) Ordered By: José Miguel Mcnamara on 31-41-2591Wddxwzcjz/100 WBC (Bld)7.6 %. [facility] CenterMonocytes/100 WBC (Bld)Automated monocyte %. [facility] CenterNeutrophils Auto (Bld) [#/Vol]Ordered By: José Miguel Mcnamara on 91-32-0156Kuhyovmebzk (Bld) [#/Vol]6.3 10*3/uL1.8-7.7 [facility] CenterNeutrophils (Bld) [#/Vol]Neutrophils [#/volume] in Blood by Automated count1.8-7.7FAdena Health System Neutrophils/100 WBC Auto (Bld)Ordered By: José Miguel Mcnamara on 11-25-2023 Neutrophils/100 WBC (Bld)64.0 %.[facility] CenterNeutrophils/100 WBC (Bld)Automated neutrophil %.[facility] CenterNo Panel InformationOrdered By: José Miguel Mcnamara on 13-37-4834Fdcbxppfj GFR (CKD-EPI)> 60.0 mL/MinCrystal Clinic Orthopedic CenterPharmacy Creatinine Clearance (Chem 94.23[facility] CenterNucleated erythrocytes [Presence] in Blood by Automated countOrdered By: José Miguel Mcnamara on 22-12-1291Idiaqsbgq RBC Auto Ql (Bld)0.2 /100{WBC}0-0.5FAdena Health SystemNucleated RBC Auto Ql (Bld)Nucleated erythrocytes [Presence] in Blood by Automated count0-0.5 [facility] CenterPlatelet mean volume Auto (Bld) [Entitic vol] Ordered By: José Miguel Mcnamara on 91-67-3431Igjolwge mean volume (Bld) [Entitic vol]8.3 fL6.3-10.7FAdena Health SystemPlatelet mean volume (Bld) [Entitic vol]Platelet mean volume [Entitic volume] in Blood by Automated count 6.3-10.7FAdena Health SystemPlatelets Auto (Bld) [#/Vol]Ordered By: José Miguel Mcnamara on 44-73-0021Fxfurasvv (Bld) [#/Vol]326 10*3/bV960-769 [facility] CenterPlatelets (Bld) [#/Vol]Platelets [#/volume] in Blood by Automated mykcd353-746QrrexlpalCrystal Clinic Orthopedic CenterPotassium [Moles/volume] in Serum or PlasmaOrdered By: José Miguel Mcnamara on 11-25-2023 Potassium [Moles/Vol]4.0 mmol/L3.5-5.1FAdena Health SystemPotassium [Moles/Vol]Potassium [Moles/volume] in Serum or Plasma3.5-5.1FAdena Health SystemProtein [Mass/volume] in Serum or PlasmaOrdered By: José Miguel Mcnamara on 18-09-5686Wluxctc [Mass/Vol]6.6 g/dL6.4-8.9[facility] CenterProtein [Mass/Vol]Protein [Mass/volume] in Serum or Plasma6.4-8.9 [facility] CenterRBC Auto (Bld) [#/Vol]Ordered By: José Miguel Mcnamara on 18-34-7122ZZI (Bld) [#/Vol]3.94 10*6/uL3.60-5.00[facility] CenterRBC (Bld) [#/Vol]Erythrocytes [#/volume] in Blood by Automated count3.60-5.00[facility] Hamiltonerum or plasma albumin/globulin mass ratioOrdered By: José Miguel Mcnamara on 85-04-4548Ppjbapc/Globulin [Mass ratio]1.4 {ratio}[facility] CenterAlbumin/Globulin [Mass ratio] Serum or plasma albumin/globulin mass ratioCrystal Clinic Orthopedic Center Serum or plasma anion gap determinationOrdered By: José Miguel Mcnamara on 02-46-2793Qjrsf gap [Moles/Vol]12.0 mmol/L6.0-15.0[facility] CenterAnion gap [Moles/Vol]Serum or plasma anion gap determination6.0-15.0 [facility] Hamiltonerum or plasma non-glucuronidated bilirubin measurement (mass/volume)Ordered By: José Miguel Mcnamara on 11-25-2023 Bilirubin.indirect [Mass/Vol]0.2 mg/dLCrystal Clinic Orthopedic Center Bilirubin.indirect [Mass/Vol]Serum or plasma non-glucuronidated bilirubin measurement (mass/volume)[facility] Hamiltonodium [Moles/volume] in Serum or PlasmaOrdered By: José Miguel Mcnamara on 42-17-3832Uealge [Moles/Vol] 140 mmol/T846-723HojxuwqzjKettering Health Hamiltonodium [Moles/Vol]Sodium [Moles/volume] in Serum or Tuffvv495-691XlitgsdorCrystal Clinic Orthopedic CenterUrea nitrogen [Mass/volume] in Serum or PlasmaOrdered By: José Miguel Mcnamara on 10-98-2835Tuoo nitrogen [Mass/Vol]17 mg/dL10-16[facility] Urea nitrogen [Mass/Vol]Urea nitrogen [Mass/volume] in Serum or Plasma10-16 [facility] CenterWBC Auto (Bld) [#/Vol]Ordered By: José Miguel Mcnamara on 69-53-6628NHR (Bld) [#/Vol]9.9 10*3/uL3.8-11.6FAdena Health SystemWBC (Bld) [#/Vol]Leukocytes [#/volume] in Blood by Automated count 3.8-11.6FOhio Valley Hospital Clinical Summaryon 04-35-1134TG Clinical SummaryNoCincinnati [facility] Note-Physicianon 11-24-2023 ED Note-PhysicianNewark HospitalComment on above:Result Comment: Electronically Signed By: Landon Tidwell PA-C\.br\Date and Time Signed: 11/23/2414:48 EDT\.br\Electronically Co-Signed By: Balbina Bryant M.D.\.br\Date and Time Co-Signed: 11/24/23 17:50 EDTED Patient Education Noteon 16-93-9369GI Patient Education NoteNoCincinnati [facility] Patient Summaryon 10-49-6831OS Patient SummaryNoProMedica Defiance Regional HospitalXR Knee Complete 4+ Views Lefton 61-63-9664FL Knee Complete 4+ Views LeftNoProMedica Defiance Regional HospitalBacteria identified Cx Nom (Bld)on 22-61-9447Xusfbxdiiwabgt and review of laboratory resultsNormalUniProMedica Flower HospitalCreatinine [Mass/Vol]on 20-57-1412dGLF- PINF [facility] HospitalComment on above:Calculations of estimated GFR are performed using the 2020 CKD-EPI Study Refit equation without therace variable for the IDMS-Traceable creatinine methods. https://jasn.asnjournals.org/content/early/ASN.1369384922 Creatinine, Serumon 12-72-6288Ntizuxckxq [Mass/Vol]0.70 mg/dL0.50 - 1.05 mg/dL [facility] HospitalLaboratory - Microbiology and Antimicrobial susceptibilityon 77-73-7058Dlccztgc identified Cx Nom (Bld)No growth at 4 days - FINAL REPORTUnWood County HospitalNo Panel Informationon 11-17-2023 Interpretation and review of laboratory resultsNormalUMercy Health Perrysburg HospitalVancomycinon 92-99-9892Vlxeduygfr [Mass/Vol]7.5 ug/mL5.0 - 20.0 ug/mLUnCherrington Hospitalycin [Mass/Vol]on 11-17-2023 Vancomycin levels can be monitored according to area under the curve (AUC) or concentration (ug/mL). The preferred monitoring strategy is determined by the patient's renal function and indication fortherapy. For AUC monitoring, a random vancomycin level should be interpreted in the context of AUC rather than the concentration at a single point in time. For concentration monitoring, a trough concentration drawn immediately prior to the next dose is preferred. Therapeutic ranges using concentration-guided results: Peak (all ages): 30.0-40.0 ug/mL Trough (all ages): 10.0-20.0 ug/mL [facility] HospitalBacteria identified Cx Nom (Unsp spec)Ordered By: Chelsea De Anda on 90-86-5632Nstthraawgqtxn and review of laboratory results AbnormalUnWood County HospitalMicroscopic observation Gram stain Nom (Unsp spec)No polymorphonuclear leukocytes seenAbnormalUniShelby Memorial HospitalMicroscopic observation Gram stain Nom (Unsp spec)PositiveAbnormal [facility] Medical CenterTissue/Wound Culture/SmearOrdered By: Chelsea De nAda on 28-51-6991Shmzdopf identified Cx Nom (Unsp spec)(1+) Rare Mixed Skin [facility] ECG 12 LeadOrdered By: Marquis Obrien on 13-26-8609Vmjjqd Wuja48GHCFygiwjnbvbSt. Francis Hospital Work Phone: P Cgfs80pcetyfbIklvpgumbfMemorial Health [facility] Work Phone: P Fczluk422 [facility] Work Phone: P Pxuye173 [facility] Work Phone: PR Ungztnkp185 [facility] Work Phone: Q Cwaij822 [facility] Work Phone: QRS Qazih33xaohmLhvedfkkvkShelby Memorial Hospital Work Phone: QRS Qhlzeiwe32 [facility] Work Phone: QT Lppvkuwp359 [facility] Work Phone: QTC Calculation(Bazett)501 [facility] Work Phone: QTC Noltnecsgc505 [facility] Work Phone: R Ekzd79altbhniPsjxowfbctMemorial Health System [facility] Work Phone: T Bqtv57djuovjoWwkujwsbpfMemorial Health System [facility] Work Phone: T Kryanx691 [facility] Work Phone: Ventricular Eons81MPFHxdbnulyrcSt. Francis Hospital Work Phone: [facility] Work Phone: ECG 12 Leadon 62-98-1582Njxkkt sinus rhythm Right atrial enlargement Low voltage QRS Prolonged QT Abnormal ECG No previous ECGs available See ED provider note for full interpretation and clinical correlation Confirmed by Marquis Obrien ([id number]) on 11/14/2023 12:52:38 AMMarquis Issa PA-C - 11/14/2023 Normal sinus rhythm Right atrial enlargement Low voltage QRS Prolonged QT Abnormal ECG No previous ECGs available See ED provider note for full interpretation and clinical correlation Confirmed by Marquis Obrien ([id number]) on 11/14/2023 12:52:38 AM [facility] Work Phone: MR Lumbar spine WO and W contrast Karen . Interval decrease in size of fluid collection [...] as stated. This study was interpreted at [place], [place]. Signed by: Oscar Sabillon 11/14/2023 2:57 AM Dictation workstation: [id number] By: Oscar Sabillon, and Kenji Herr STUDY: MR LUMBAR SPINE W AND WO IV CONTRAST; 11/13/2023 8:10 pm INDICATION: Signs/Symptoms:r/o abscess. COMPARISON: MRI lumbar spine 10/31/2023 ACCESSION NUMBER(S): [id number] ORDERING CLINICIAN: CRISTOBAL JESSICA TECHNIQUE: Sagittal T1, T2, STIR, axial T1 [...] similar to prior. There is also similar rbnj-ap-ixqrrkpd right greater than left foraminal stenosis due [...] to mildly improved compared to prior examination. ADRIÁN MMOscar Mendoza DO - 11/14/2023 Interpreted By: Oscar Sabillon and Tippareddy Charit STUDY: MR LUMBAR SPINE W AND WO IV CONTRAST; 11/13/2023 8:10 pm INDICATION: Signs/Symptoms:r/o abscess. COMPARISON: MRI lumbar spine 10/31/2023 ACCESSION NUMBER(S): [id number] ORDERING CLINICIAN: CRISTOBAL JESSICA TECHNIQUE: Sagittal T1, T2, STIR, axial T1 [...] similar to prior. There is also similar tqjl-qn-emfjolzm right greater than left foraminal stenosis due [...] as stated. This study was interpreted at [facility], [place], [place]. Signed by: Oscar Sabillon 11/14/2023 2:57 AM Dictation workstation: [id number] [facility] Work Phone: mr Lumbar spine WO and W contrast IVOrdered By: Oscar Sabillon on 39-56-1176UpssrdwpeiWood County Hospital Work Phone: no Panel InformationOrdered By: Fabrizio Garcia on 39-03-1791CntphrblvlWood County HospitalUrinalysis complete panel (U)Ordered By: Fabrizio Garcia on 30-76-3008Jxmdajegqi (U)ClearClearUnWood County HospitalBilirubin (U) [Mass/Vol]NegativeNEGATIVEUnWood County HospitalColor (U)YellowLight-Yellow, Yellow, Dark-YellowUnWood County HospitalGlucose Auto test strip (U) [Mass/Vol]NormalNormal mg/dLUnWood County HospitalInterpretation and review of laboratory resultsAbnormal [facility] HospitalKetones (U) [Mass/Vol]TRACEAbnormalNEGATIVE mg/dLUnWood County HospitalLeukocyte esterase Auto test strip Ql (U) 25 Robert/ LAbnormalNEGATIVEUnWood County HospitalNitrite Auto test strip Ql (U)NegativeNEGATIVEUnWood County HospitalpH (U)6.0 [pH]5.0, 5.5, 6.0, 6.5, 7.0, 7.5, 8.0UnWood County HospitalProtein (U) [Mass/Vol]30 (1+)AbnormalNEGATIVE, 10 (TRACE), 20 (TRACE) mg/dLUnWood County HospitalRBC (U) [#/Vol]NegativeNEGATIVEUnWood County HospitalSpecific gravity (U) [Rel density]>1.144Xwcusahb4.005 - 1.035UnProMedica Toledo Hospital on above:Specific gravity of >1.050 may be falsely elevated due to interferences with measurement. If clinically indicated, repeat testing with an alternative method is available by contacting the laboratory within 24 hours.Urobilinogen (U) [Mass/Vol]3 (1+)AbnormalNormal mg/dLUnProMedica Toledo Hospital on above:Some pigments and medications may cause a false positive urobilinogen.Urinalysis microscopic panel Auto Ql (U)on 72-40-7684Adzmjwbbny cells.squamous Auto (Urine sed) [#/Area]10-25 (FEW) Reference range not established. /HPFUnWood County Hospital Work Phone: [phone] Auto (Urine sed) [#/Area]2+Reference range not established. /LPFUniShelby Memorial Hospital Work Phone: RBC Auto (Urine sed) [#/Area]1-2NONE, 1-2, 3-5 /[facility] Work Phone: [phone] Auto (Urine sed) [#/Area]1-51-5, NONE /[facility] Work Phone: Vancomycinon 68-03-9873Scnqhkgqzz [Mass/Vol]9.2 ug/mL 5.0 - 20.0 ug/mLJoint Township District Memorial HospitalVancomycin [Mass/Vol]on 28-02-3966Ycbzivbsqxjhyj and review of laboratory resultsNormalUniShelby Memorial Hospital Vancomycin levels can be monitored according to area under the curve (AUC) or concentration (ug/mL). The preferred monitoring strategy is determined by the patient's renal function and indication fortherapy. For AUC monitoring, a random vancomycin level should be interpreted in the context of AUC rather than the concentration at a single point in time. For concentration monitoring, a trough concentration drawn immediately prior to the next dose is preferred. Therapeutic ranges using concentration-guided results: Peak (all ages): 30.0-40.0 ug/mL Trough (all ages): 10.0-20.0 ug/mL [facility] HospitalUnWood County HospitalBlaustin hospital and clinic type and Indirect antibody screen panel (Bld)on 37-12-2090PNA group Nom (Bld)OUniShelby Memorial HospitalBlaustin hospital and clinic group antibody screen QlNegativeJoint Township District Memorial HospitalD Ag Ql (Bld)PositiveParkview Health Bryan HospitalCT Lumbar spine WO contraston 11-13-2023 Addendum by Michele Berry MD PhD on 11/13/2023 3:16 PM EDT This finding was discussed with and acknowledged by Dr Alana Lindquist on 11/13/2023 at 2:54 PM Signed by Michele Berry MDJoint Township District Memorial Hospital Work Phone: [phone]. Again seen is the edema in the [...] further evaluation. Signed by Michele Berry MD TELERADIOLOGYSTUDY: CT Lumbar Spine without IV Contrast; 11/13/2023 1:45 PM INDICATION: Re-assess surgical site. COMPARISON: CT lumbar 11/09/2023. MR lumbar 10/31/2023. ACCESSION NUMBER(S): [id number] ORDERING CLINICIAN: ALANA LINDQUIST TECHNIQUE: CT of [...] unchanged. The visualized abdomen is otherwise unremarkable. TELERADIOLOGYChuang, Michele De La Rosa MD PhD - 11/13/2023 STUDY: CT Lumbar Spine without IV Contrast; 11/13/2023 1:45 PM INDICATION: Re-assess surgical site. COMPARISON: CT lumbar 11/09/2023. MR lumbar 10/31/2023. ACCESSION NUMBER(S): [id number] ORDERING CLINICIAN: ALANA LINDQUIST TECHNIQUE: CT of [...] further evaluation. Signed by Michele Berry MD [facility] Work Phone: Radiology Study observation (narrative)[facility] Work Phone: CT Lumbar spine WO contrastOrdered By: Michele Berry on 63-55-6052NfdszpogkrJoint Township District Memorial Hospital Work Phone: ECG 12-LEADon 55-39-7129TYW 12-LEADVentricular Rate 91 Atrial Rate 91 P-R Interval 130 QRS Duration 80 Q-T Interval 408 QTC Calculation(Bazett) 501 P [place] 84 R [place] 56 T [place] 70 QRS Count 15 Q Onset 219 P Onset 154 P Offset 205 T Offset 423 QTC Fredericia 469 Diagnosis Normal sinus rhythm Right atrial enlargement Low voltage QRS Prolonged QT Abnormal ECG No previous ECGs available See ED provider note for full interpretation and clinical correlation Confirmed by Marquis Obrien ([id number]) on 11/14/2023 12:52:38 AMNormalShore Memorial HospitalHCG.beta subunit Qnon 57-19-3512Xglcrqjzgbnejo and review of laboratory resultsNormalUniShelby Memorial HospitalTotal HCG measurement is performed using the Siemens Atellica immunoassay which detects intact HCG and free beta HCG subunit. This test is not indicated for use as a tumor marker. HCG testing is performed using a different test methodology at [facility] than [facility]. Direct result comparison should only be made within the same method. [facility] HospitalUnWood County HospitalMR Lumbar spine WO and W contrast Karen 80-70-5355Zshvgzjio Study observation (narrative) [facility] Work Phone: PT and aPTT panel Coag (PPP)on 13-22-8321nZWY Coag (PPP) [Time]29 [facility] CenterINR Coag (PPP) [Relative time] 1.1 {INR}0.9 - 1.1[facility] HospitalInterpretation and review of laboratory resultsNormalUniShelby Memorial HospitalPT Coag (PPP) [Time] 12.3 [facility] Medical CenterThe APTT is no longer used for monitoring Unfractionated Heparin Therapy. For monitoring Heparin Therapy, use the Heparin Assay.[facility] HospitalUnWood County HospitalXR Chest Single viewon 12-87-2410Mh acute process. Signed by Taj Chandler MD TELERADIOLOGYSTUDY: Chest Radiograph; 11/13/2023 11:40 AM INDICATION: Pre-operative evaluation. COMPARISON: XR Chest 10/31/2023 ACCESSION NUMBER(S): [id number] ORDERING CLINICIAN: CRISTOBAL JESSICA TECHNIQUE: Frontal chest was obtained at 11:38 hours. FINDINGS: CARDIOMEDIASTINAL SILHOUETTE: Cardiomediastinal silhouette is normal in size and configuration. LUNGS: Lungs are clear. ABDOMEN: No remarkable upper abdominal findings. BONES: No acute osseous changes. TELERADIOLOGYBlodgettTaj MD - 11/13/2023 STUDY: Chest Radiograph; 11/13/2023 11:40 AM INDICATION: Pre-operative evaluation. COMPARISON: XR Chest 10/31/2023 ACCESSION NUMBER(S): [id number] ORDERING CLINICIAN: CRISTOBAL JESSICA TECHNIQUE: Frontal chest was obtained at 11:38 hours. FINDINGS: CARDIOMEDIASTINAL SILHOUETTE: Cardiomediastinal silhouette is normal in size and configuration. LUNGS: Lungs are clear. ABDOMEN: No remarkable upper abdominal findings. BONES: No acute osseous changes. IMPRESSION: No acute process. Signed by Taj Chandler MD [facility] Work Phone: Radiology Study observation (narrative)[facility] Work Phone: XR Chest Single viewOrdered By: Taj Chandler on 85-05-1534EnmxnsxihfWood County Hospital Work Phone: hCG, quantitative, pregnancyon 88-10-5660KSJ.beta subunit QnNINFJoint Township District Memorial HospitalC-reactive proteinon 11-12-2023 CRP [Mass/Vol]0.79 mg/dLNINF - 1.00 mg/dLUnWood County HospitalCB W Auto Differential panel (Bld)on 24-52-3427Mqgchprny (Bld) [#/Vol]0.02 10*3/uL [facility] HospitalBasophils/100 WBC (Bld)0.2 %0.0 - 2.0 % [facility] HospitalEosinophils (Bld) [#/Vol]0.08 10*3/uLUnWood County HospitalEosinophils/100 WBC (Bld)0.7 %0.0 - 6.0 %[facility] HospitalErythrocyte distribution width (RBC) [Ratio]13.0 %11.5 - 14.5 %[facility] HospitalHematocrit (Bld) [Volume fraction]42.2 % 36.0 - 46.0 %[facility] HospitalHemoglobin (Bld) [Mass/Vol]14.9 g/dL12.0 - 16.0 g/dLUnWood County HospitalImchristian hospital granulocytes (Bld) [#/Vol]0.04 10*3/uLJoint Township District Memorial HospitalImchristian hospital granulocytes/100 WBC (Bld)0.3 %0.0 - 0.9 %[facility] HospitalComment on above: Immature Granulocyte Count (IG) includes promyelocytes, myelocytes and metamyelocytes but does not include bands. Percent differential counts (%) should be interpreted in the context of the absolute cell counts (cells/UL). Interpretation and review of laboratory resultsAbnormalUniversSelect Specialty Hospital - EvansvilleLymphocytes (Bld) [#/Vol]2.56 10*3/uLJoint Township District Memorial Hospital Lymphocytes/100 WBC (Bld)22.2 %13.0 - 44.0 %[facility] ShawH (RBC) [Entitic mass]31.0 pg26.0 - 34.0 pgUnWood County HospitalMCHC (RBC) [Mass/Vol]35.3 g/dL32.0 - 36.0 g/dLUnWood County HospitalMCV (RBC) [Entitic vol]88 fL80 - 100 fLUniShelby Memorial HospitalMonocytes (Bld) [#/Vol]0.70 10*3/[facility] HospitalMonocytes/100 WBC (Bld)6.1 %2.0 - 10.0 %[facility] HospitalNeutrophils (Bld) [#/Vol] 8.12 10*3/[facility] on above:Percent differential counts (%) should be interpreted in the context of the absolute cell counts (cells/uL).Neutrophils/100 WBC (Bld)70.5 %40.0 - 80.0 %[facility] HospitalNucleated RBC/100 WBC (Bld) [Ratio]0.0 %[facility] HospitalPlatelets (Bld) [#/Vol]366 10*3/[facility]ers HospitalRBC (Bld) [#/Vol]4.80 10*6/[facility] HospitalWBC (Bld) [#/Vol]11.5 10*3/[facility] City HospitalUnWood County HospitalComprehensive metabolic 2000 panelon 32-16-7543Skecngx BCP dye [Mass/Vol]4.2 g/dL3.4 - 5.0 g/dLJoint Township District Memorial HospitalALP [Catalytic activity/Vol]86 U/L33 - 110 U/[facility] NorthT With P-5'-P [Catalytic activity/Vol]19 U/L7 - 45 U/[place] on above:Patients treated with Sulfasalazine may generate falsely decreased results for ALT.Anion gap [Moles/Vol]15 mmol/L10 - 20 mmol/[facility] HospitalAST With P-5'-P [Catalytic activity/Vol]22 U/L9 - 39 U/[facility] HospitalBilirubin [Mass/Vol]0.5 mg/dL0.0 - 1.2 mg/dLJoint Township District Memorial HospitalCalcium [Mass/Vol]9.1 mg/dL8.6 - 10.6 mg/dLUnWood County HospitalChloride [Moles/Vol]103 mmol/L98 - 107 mmol/[facility] HospitalCO2 [Moles/Vol]24 mmol/L21 - 32 mmol/[facility] HospitalCreatinine [Mass/Vol]0.84 mg/dL0.50 - 1.05 mg/dLJoint Township District Memorial HospitalGFR/1.73 sq M.predicted among non-blacks MDRD (S/P/Bld) [Vol rate/Area]87 mL/min/{1.73_m2}- [facility] on above:Calculations of estimated GFR are performed using the 2020 CKD-EPI Study Refit equation without therace variable for the IDMS-Traceable creatinine methods. https://jasn.asnjournals.org/content//ASN.5606435945 Glucose [Mass/Vol]94 mg/dL74 - 99 mg/dLJoint Township District Memorial Hospital Potassium [Moles/Vol]3.6 mmol/L3.5 - 5.3 mmol/[facility] Protein [Mass/Vol]8.1 g/dL6.4 - 8.2 g/dLJoint Township District Memorial HospitalSodium [Moles/Vol]138 mmol/L136 - 145 mmol/[facility] HospitalUrea nitrogen [Mass/Vol]12 mg/dL6 - 23 mg/dLJoint Township District Memorial HospitalESR Westergren method (Bld) [Velocity]on 12-64-9342LIJ (Bld) [Velocity]27 mm/hHigh0 - 20 mm/[facility] HospitalInterpretation and review of laboratory resultsAbnormPremier Health Miami Valley HospitalNo Panel Informationon 83-96-0969Hddvuneychejkb and review of laboratory resultsNoMercy Health St. Anne HospitalSST TOPon 73-64-6748Pikzw TubeHold for add-ons.[facility] on above:Auto resulted.[facility] Bacterial blood cultureOrdered By: Dalton Ceja on 08-43-2407Hthfbdot identified Cx Nom (Bld)NO GROWTH 5 DAYSCrystal Clinic Orthopedic CenterBacteria identified Cx Nom (Bld)Bacterial blood cultureCrystal Clinic Orthopedic Center Bacteria identified Cx Nom (Bld)NO GROWTH 5 DAYSCrystal Clinic Orthopedic CenterBasophils Auto (Bld) [#/Vol]Ordered By: Dalton Ceja on 11-10-2023 Basophils (Bld) [#/Vol]0.0 10*3/uL0.0-0.2FAdena Health System Basophils (Bld) [#/Vol]Automated basophil count0.0-0.2FAdena Health SystemBasophils/100 WBC Auto (Bld)Ordered By: Dalton Ceja on 11-10-2023 Basophils/100 WBC (Bld)0.2 %.[facility] CenterBasophils/100 WBC (Bld)Automated basophil %.[facility] CenterC reactive protein [Mass/volume] in Serum or PlasmaOrdered By: Dalton Ceja on 49-69-2394HCX [Mass/Vol]0.9 mg/dLHigh0.0-0.5FAdena Health SystemCRP [Mass/Vol]C reactive protein [Mass/volume] in Serum or PlasmaHigh0.0-0.5FAdena Health SystemEosinophils Auto (Bld) [#/Vol]Ordered By: Dalton Ceja on 28-17-9785Oeukbkftxhz (Bld) [#/Vol]0.1 10*3/uL0.0-0.45[facility] Orthopedic CenterEosinophils (Bld) [#/Vol]Automated eosinophil count0.0-0.45[facility] CenterEosinophils/100 WBC Auto (Bld)Ordered By: Dalton Ceja on 24-28-5704Rdhbbmqtslr/100 WBC (Bld)1.2 %.[facility] Eosinophils/100 WBC (Bld)Automated eosinophil %.[facility] CenterErythrocyte distribution width Auto (RBC) [Ratio]Ordered By: Dalton Ceja on 76-33-3292Uhbqmsjftte distribution width (RBC) [Ratio]13.6 %11.9-15.3 [facility] CenterErythrocyte distribution width (RBC) [Ratio] Erythrocyte distribution width [Ratio] by Automated count11.9-15.3FAdena Health SystemErythrocyte sedimentation rate by Photometric method Ordered By: Dalton Ceja on 77-21-8607SRP Photometric method (Bld) [Velocity]33 mm/hrHigh0-[facility]opedic CenterESR Photometric method (Bld) [Velocity]Erythrocyte sedimentation rate by Photometric methodRichwood Area Community Hospital0-19[facility]opedic CenterHematocrit Auto (Bld) [Volume fraction]Ordered By: Dalton Ceja on 35-58-2304Pufakcmeaf (Bld) [Volume fraction]39.0 %34.0-46.4FAdena Health SystemHematocrit (Bld) [Volume fraction]Hematocrit [Volume Fraction] of Blood by Automated count34.0-46.4FAdena Health System Hemoglobin [Mass/volume] in BloodOrdered By: Dalton Ceja on 11-10-2023 Hemoglobin (Bld) [Mass/Vol]13.0 g/dL11.8-15.4FAdena Health System Hemoglobin (Bld) [Mass/Vol]Hemoglobin [Mass/volume] in Blood11.8-15.4FAdena Health SystemLactate [Moles/volume] in Serum or PlasmaOrdered By: Dalton Ceja on 89-13-6214Prxboze [Moles/Vol]0.7 mmol/L0.5-2.2FAdena Health SystemLactate [Moles/Vol]Lactate [Moles/volume] in Serum or Plasma 0.5-2.2FAdena Health SystemLeukocytes [#/volume] corrected for nucleated erythrocytes in Blood by Automated counOrdered By: Dalton Ceja on 15-60-5548MPQ corrected for nucl RBC Auto (Bld) [#/Vol]10.1 10*3/uL3.8-11.6 [facility] CenterWBC corrected for nucl RBC Auto (Bld) [#/Vol] Leukocytes [#/volume] corrected for nucleated erythrocytes in Blood by Automated coun3.8-11.6FAdena Health SystemLymphocytes Auto (Bld) [#/Vol] Ordered By: Dalton Ceja on 04-85-4324Kyuypovohun (Bld) [#/Vol]2.4 10*3/uL 1.00-4.8[facility] Orthopedic CenterLymphocytes (Bld) [#/Vol]Lymphocytes [#/volume] in Blood by Automated count1.00-4.8[facility] Lymphocytes/100 WBC Auto (Bld)Ordered By: Dalton Ceja on 11-10-2023 Lymphocytes/100 WBC (Bld)23.7 %.[facility]opedic CenterLymphocytes/100 WBC (Bld)Lymphocytes/100 leukocytes in Blood by Automated count.[facility] Auto (RBC) [Entitic mass]Ordered By: Dalton Ceja on 83-03-9659KQR (RBC) [Entitic mass]31.3 pg24.7-34.3FMercy Health Perrysburg Hospital (RBC) [Entitic mass]MCH [Entitic mass] by Automated count24.7-34.3 [facility] HospitalHC Auto (RBC) [Mass/Vol]Ordered By: Dalton Ceja on 42-11-3611WKFZ (RBC) [Mass/Vol]33.3 g/dL32.0-35.0[facility] HospitalHC (RBC) [Mass/Vol]MCHC [Mass/volume] by Automated count 32.0-35.0[facility] HospitalV Auto (RBC) [Entitic vol]Ordered By: Dalton Ceja on 90-38-6923OQG (RBC) [Entitic vol]94.0 iJ73-191YxaqolbdgChillicothe HospitalV (RBC) [Entitic vol]MCV [Entitic volume] by Automated tirlc65-536BtypfngprCrystal Clinic Orthopedic CenterMonocyte distribution width [Entitic volume] in Blood by AutomatedOrdered By: Dalton Ceja on 53-22-0901Aiauufxm distribution width Auto (Bld) [Entitic vol]19.08 %0.00-20.00[facility] CenterMonocyte distribution width Auto (Bld) [Entitic vol]Monocyte distribution width [Entitic volume] in Blood by Automated0.00-20.00[facility] CenterMonocytes Auto (Bld) [#/Vol]Ordered By: Dalton Ceja on 23-76-9716Jcivouddj (Bld) [#/Vol]0.7 10*3/uL0.0-0.8[facility] CenterMonocytes (Bld) [#/Vol]Automated blood monocyte count0.0-0.8[facility] CenterMonocytes/100 WBC Auto (Bld)Ordered By: Dalton Ceja on 07-40-7316Egcfqgzbg/100 WBC (Bld)6.7 %.[facility] Monocytes/100 WBC (Bld)Automated monocyte %.[facility] Neutrophils Auto (Bld) [#/Vol]Ordered By: Dalton Ceja on 09-60-3407Urmtqnkvsnx (Bld) [#/Vol]6.9 10*3/uL1.8-7.7FAdena Health SystemNeutrophils (Bld) [#/Vol]Neutrophils [#/volume] in Blood by Automated count1.8-7.7FAdena Health SystemNeutrophils/100 WBC Auto (Bld)Ordered By: Dalton Ceja on 21-99-5311Ubysbljpayg/100 WBC (Bld)68.2 %.[facility] Neutrophils/100 WBC (Bld)Automated neutrophil %.[facility]opedic CenterNucleated erythrocytes [Presence] in Blood by Automated countOrdered By: Dalton Ceja on 41-44-7000Xzfymxzfy RBC Auto Ql (Bld)0.0 /100{WBC}0-0.5 [facility] CenterNucleated RBC Auto Ql (Bld)Nucleated erythrocytes [Presence] in Blood by Automated count0-0.5FAdena Health SystemPlatelet mean volume Auto (Bld) [Entitic vol]Ordered By: Dalton Ceja on 92-22-8885Bwctzmyp mean volume (Bld) [Entitic vol]8.9 fL6.3-10.7 [facility] CenterPlatelet mean volume (Bld) [Entitic vol] Platelet mean volume [Entitic volume] in Blood by Automated count6.3-10.7 [facility] CenterPlatelets Auto (Bld) [#/Vol]Ordered By: Dalton Ceja on 93-12-8386Gelivaspg (Bld) [#/Vol]300 10*3/uQ003-918TniethwuvCrystal Clinic Orthopedic CenterPlatelets (Bld) [#/Vol]Platelets [#/volume] in Blood by Automated lykjz377-589FixlyhhpvCrystal Clinic Orthopedic CenterRBC Auto (Bld) [#/Vol] Ordered By: Dalton Ceja on 23-26-7223CDL (Bld) [#/Vol]4.15 10*6/uL3.60-5.00 [facility] CenterRBC (Bld) [#/Vol]Erythrocytes [#/volume] in Blood by Automated count3.60-5.00[facility] CenterWBC Auto (Bld) [#/Vol]Ordered By: Daltonleatha Ceja on 01-51-6282KAS (Bld) [#/Vol]10.1 10*3/uL 3.8-11.6FAdena Health SystemWBC (Bld) [#/Vol]Leukocytes [#/volume] in Blood by Automated count3.8-11.6FAdena Health SystemBasic metabolic 2000 panelon 98-82-4047Koynw gap [Moles/Vol]12 mmol/L10 - 20 mmol/L [facility] HospitalCalcium [Mass/Vol]8.5 mg/dLLow8.6 - 10.3 mg/dL [facility] HospitalChloride [Moles/Vol]105 mmol/L98 - 107 mmol/L [facility] HospitalCO2 [Moles/Vol]24 mmol/L21 - 32 mmol/L [facility] HospitalCreatinine [Mass/Vol]0.77 mg/dL0.50 - 1.05 mg/dLUnWood County HospitaleG- PINFUniShelby Memorial HospitalComment on above:Calculations of estimated GFR are performed using the 2020 CKD-EPI Study Refit equation without therace variable for the IDMS- Traceable creatinine methods. https://jasn.asnjournals.org/content/early/ASN.7088241994 Glucose [Mass/Vol]104 mg/yRNplt29 - 99 mg/dLUnWood County Hospital Potassium [Moles/Vol]3.7 mmol/L3.5 - 5.3 mmol/[facility] Sodium [Moles/Vol]137 mmol/L136 - 145 mmol/[facility] Urea nitrogen [Mass/Vol]10 mg/dL6 - 23 mg/dLUnWood County Hospital Anion gap [Moles/Vol]12 mmol/IGjfuac43-34LydmhgmgkrBethesda North HospitalComment on above:Performed By: #### [id number] #### GIOVANNI BURNETT ([id number]) [facility] ([facility]) [address] [place] [address] 54898Rwheolo [Mass/Vol]8.5 mg/dLLow8.6-10.3UnBethesda North HospitalComment on above:Performed By: #### [id number] #### GIOVANNI BURNETT ([id number]) [facility] ([facility]) [address] [place] [address] 07794Myjsiybq [Moles/Vol]105 mmol/OPxmpdu80-209CgswnqrevpBethesda North HospitalComment on above:Performed By: #### [id number] #### GIOVANNI BURNETT ([id number]) [facility] ([facility]) [address] [place] [address] 42644XB2 [Moles/Vol]24 mmol/LNwwblp18-64UtexaoqhzhBethesda North HospitalComment on above:Performed By: #### [id number] #### GIOVANNI BURNETT ([id number]) [facility] ([facility]) [address] [place] [address] 83811Egkdycxgor [Mass/Vol]0.77 mg/dLNormal0.50-1.05UnBethesda North HospitalComment on above:Performed By: #### 78960-4 #### GIOVANNI BURNETT ([id number]) [facility] ([facility]) [address] [place] [address] 95915ZUF/1.73 sq M.predicted MDRD (S/P/Bld) [Vol rate/Area] mL/min/{1.73_m2}Normal>60UnBethesda North HospitalComment on above:Result Comment: Calculations of estimated GFR are performed using the 2020 CKD-EPI Study Refit equation without the race variable for the IDMS-Traceable creatinine methods. https://jasn.asnjournals.org/content/early/ASN.4854946718Efpaqawyn By: #### 43325-2 #### GIOVANNI BURNETT ([id number]) [facility] ([facility]) [address] [place] [address] 62236Urupzqe [Mass/Vol]104 mg/pRTkjn43-51RddeutaebcBethesda North HospitalComment on above:Performed By: #### 50726-1 #### GIOVANNI BURNETT (31371) [facility] ([facility]) [address] [place] [address] 75460Qaohreqrx [Moles/Vol]3.7 mmol/LNormal3.5-5.3UnBethesda North HospitalComment on above:Performed By: #### 46379-0 #### GIOVANNI BURNETT ([id number]) [facility] ([facility]) [address] [place] [address] 69627Prakfu [Moles/Vol]137 mmol/XYsczgl861-902GvjtgwihkkBethesda North HospitalComment on above:Performed By: #### 54355-3 #### GIOVANNI BURNETT ([id number]) [facility] ([facility]) [address] [place] [address] 38363Lgdr nitrogen [Mass/Vol]10 mg/dLNormal6-23UnBethesda North HospitalComment on above:Performed By: #### 46470-0 #### GIOVANNI BURNETT ([id number]) [facility] ([facility]) [address] [place] [address] 76011D reactive proteinon 96-79-3515EOV [Mass/Vol]1.06 mg/dLHigh <1.00UnBethesda North HospitalComment on above:Performed By: #### 1988-5 #### GIOVANNI BURNETT ([id number]) [facility] ([facility]) [address] [place] [address] 74903Z-Ydalcxmd Proteinon 19-45-8371LWA [Mass/Vol]1.06 mg/dLHighNINF - 1.00 mg/dLUnWood County HospitalCB W Auto Differential panel (Bld)on 17-83-3415Fxuxmffpk (Bld) [#/Vol]0.01 10*3/uLUnWood County HospitalBasophils/100 WBC (Bld)0.1 %0.0 - 2.0 %[facility] ClevelandEosinophils (Bld) [#/Vol]0.10 10*3/[facility] Eosinophils/100 WBC (Bld)1.0 %0.0 - 6.0 %[facility] Erythrocyte distribution width (RBC) [Ratio]12.8 %11.5 - 14.5 %[facility] HospitalHematocrit (Bld) [Volume fraction]41.3 %36.0 - 46.0 % [facility] HospitalHemoglobin (Bld) [Mass/Vol]13.5 g/dL12.0 - 16.0 g/dLUnWood County HospitalImchristian hospital granulocytes (Bld) [#/Vol]0.03 10*3/[facility] HospitalImchristian hospital granulocytes/100 WBC (Bld)0.3 % 0.0 - 0.9 %[facility] on above:Immature Granulocyte Count (IG) includes promyelocytes, myelocytes and metamyelocytes but does not include bands. Percent differential counts (%) should be interpreted in the context of the absolute cell counts (cells/UL).Lymphocytes (Bld) [#/Vol] 2.13 10*3/[facility] HospitalLymphocytes/100 WBC (Bld)21.4 %13.0 - 44.0 %[facility] ShawH (RBC) [Entitic mass]31.0 pg26.0 - 34.[address] Joseph Warren HospitalHC (RBC) [Mass/Vol]32.7 g/dL32.0 - 36.0 g/dLSelect Medical Cleveland Clinic Rehabilitation Hospital, Edwin ShawV (RBC) [Entitic vol]95 fL80 - 100 fLUniShelby Memorial HospitalMonocytes (Bld) [#/Vol]0.55 10*3/[facility] HospitalMonocytes/100 WBC (Bld)5.5 %2.0 - 10.0 %[facility] HospitalNeutrophils (Bld) [#/Vol]7.14 10*3/[facility] on above:Percent differential counts (%) should be interpreted in the context of the absolute cell counts (cells/uL). Neutrophils/100 WBC (Bld)71.7 %40.0 - 80.0 %[facility] Nucleated RBC/100 WBC (Bld) [Ratio]0.0 %[facility] Platelets (Bld) [#/Vol]308 10*3/[facility] HospitalRBC (Bld) [#/Vol]4.36 10*6/[facility] HospitalWBC (Bld) [#/Vol]10.0 10*3/[facility] HospitalUnWood County Hospital Basophils (Bld) [#/Vol]0.01 x10*3/uLNormal0.00-0.10UnBethesda North HospitalComment on above:Performed By: #### 91046-3 #### GIOVANNI BURNETT ([id number]) [facility] ([facility]) [address] [place] [address] 93891Awxmoukmt/100 WBC (Bld)0.1 %Normal0.0-2.0UnBethesda North HospitalComment on above:Performed By: #### 82729-4 #### GIOVANNI BURNETT ([id number]) [facility] ([facility]) [address] [place] [address] 45435Ehuqobvrhle (Bld) [#/Vol]0.10 x10*3/uLNormal0.00-0.70UnBethesda North HospitalComment on above:Performed By: #### 43357-6 #### GIOVANNI BURNETT (58417) [facility] ([facility]) [address] [place] [address] 50165Slpwenjpufi/100 WBC (Bld)1.0 %Normal0.0-6.0UnBethesda North HospitalComment on above:Performed By: #### 01240-5 #### GIOVANNI BURNETT ([id number]) [facility] ([facility]) [address] [place] [address] 42905Pmwpmduanut distribution width (RBC) [Ratio]12.8 %Normal 11.5-14.5[facility] - AndersonComment on above:Performed By: #### 02930-4 #### GIOVANNI BURNETT ([id number]) [facility] ([facility]) [address] [place] [address] 61907Olyxomqfie (Bld) [Volume fraction]41.3 %Dvibcz49.0-46.0 [facility] - AndersonComment on above:Performed By: #### 99862-1 #### GIOVANNI BURNETT (85269) [facility] ([facility]) [address] [place] [address] 89118Vmmfsiupdn (Bld) [Mass/Vol]13.5 g/bROxoqqt93.0-16.0UnBethesda North HospitalComment on above:Performed By: #### 03124-1 #### GIOVANNI BURNETT (55082) [facility] ([facility]) [address] [place] [address] 83741Zcphjddy granulocytes (Bld) [#/Vol]0.03 x10*3/uLNormal0.00-0.70 [facility] - AndersonComment on above:Performed By: #### 53103-9 #### GIOVANNI BURNETT (32031) [facility] ([facility]) [address] [place] [address] 56415Stxyhnhj granulocytes/100 WBC (Bld)0.3 %Normal0.0-0.9UnBethesda North HospitalComment on above:Result Comment: Immature Granulocyte Count (IG) includes promyelocytes, myelocytes and metamyelocytes but does not include bands. Percent differential counts (%) should be interpreted in the context of the absolute cell counts (cells/UL).Performed By: #### 23712-3 #### GIOVANNI BURNETT (75889) [facility] ([facility]) [address] [place] [address] 37486Roqjvsfzovg (Bld) [#/Vol]2.13 x10*3/uLNormal1.20-4.80UnBethesda North HospitalComment on above:Performed By: #### [id number] #### GIOVANNI BURNETT (26250) [facility] ([facility]) [address] [place] [address] 38626Dwplpadmgpe/100 WBC (Bld)21.4 %Jmiput97.0-44.0UnBethesda North HospitalComment on above:Performed By: #### 82795-1 #### GIOVANNI BURNETT ([id number]) [facility] ([facility]) [address] [place], [place] [address]805MCH (RBC) [Entitic mass]31.0 erYbhvaa14.0-34.0UnBethesda North HospitalComment on above:Performed By: #### [id number] #### GIOVANNI BURNETT ([id number]) [facility] ([facility]) [address] [place] [id number] (RBC) [Mass/Vol]32.7 g/xBWcxlkz24.0-36.0UnBethesda North HospitalComment on above:Performed By: #### [id number] #### GIOVANNI BURNETT ([id number]) [facility] ([facility]) [address] [place], [place] [id number] (RBC) [Entitic vol]95 nHAakdgn34-377LfhaixmeeoBethesda North HospitalComment on above:Performed By: #### [id number] #### GIOVANNI BURNETT ([id number]) [facility] ([facility]) [address] [place] [address] 03218Ofmnmyyrw (Bld) [#/Vol]0.55 x10*3/uLNormal0.10-1.00UnBethesda North HospitalComment on above:Performed By: #### 73072-0 #### GIOVANNI BURNETT ([id number]) [facility] ([facility]) [address] [place] [address] 56713Nklkrndhx/100 WBC (Bld)5.5 %Normal2.0-10.0UnBethesda North HospitalComment on above:Performed By: #### 62366-6 #### GIOVANNI BURNETT ([id number]) [facility] ([facility]) [address] [place] [address] 24760Nmhkifhzjvm (Bld) [#/Vol]7.14 x10*3/uLNormal1.20-7.70UnBethesda North HospitalComment on above:Result Comment: Percent differential counts (%) should be interpreted in the context of the absolute cell counts (cells/uL).Performed By: #### 80084-3 #### GIOVANNI BURNETT ([id number]) [facility] ([facility]) [address] [place] [address] 14857Mubcuybsuac/100 WBC (Bld)71.7 %Fwduqv39.0-80.0UnBethesda North HospitalComment on above:Performed By: #### 81575-7 #### GIOVANNI BURNETT ([id number]) [facility] ([facility]) [address] [place] [address] 92782Cnuuwegjh RBC/100 WBC (Bld) [Ratio]0.0 /100 WBCsNormal0.0-0.0 [facility] - AndersonComment on above:Performed By: #### 41052-2 #### GIOVANNI BURNETT ([id number]) [facility] ([facility]) [address] [place] [address] 64132Uvclfexpp (Bld) [#/Vol]308 x10*3/pCIxukhw445-046DhnbacfcwfBethesda North HospitalComment on above:Performed By: #### 08835-8 #### GIOVANNI BURNETT ([id number]) [facility] ([facility]) [address] [place] [address] 94017LGY (Bld) [#/Vol]4.36 x10*6/uLNormal4.00-5.20UnBethesda North HospitalComment on above:Performed By: #### 04788-3 #### GIOVANNI BURNETT ([id number]) [facility] ([facility]) [address] [place] [address] 08517ASX (Bld) [#/Vol]10.0 x10*3/uLNormal4.4-11.3UnBethesda North HospitalComment on above:Performed By: #### 59337-0 #### GIOVANNI BURNETT ([id number]) [facility] ([facility]) [address] [place] [address] 87256FM LUMBAR SPINE W IV CONTRASTon 45-84-8501EL LUMBAR SPINE W IV CONTRASTSTUDY: CT Lumbar Spine with IV Contrast; 11/09/2023 at 2:52 PM. INDICATION: Pain and swelling. COMPARISON: MR lumbar 10/31/2023, 10/31/2022. ACCESSION NUMBER(S): [id number] ORDERING CLINICIAN: JAROCHO DELATORRE TECHNIQUE: CT of the lumbar spine was [...] protocol CT is recommended. Signed by Doc Romero MDUK HealthcareCT Lumbar spine W contrast Karen . Fat stranding posterior to the spinous processes [...] protocol CT is recommended. Signed by Doc Romero MD TELERADIOLOGYSTUDY: CT Lumbar Spine with IV Contrast; 11/09/2023 at 2:52 PM. INDICATION: Pain and swelling. COMPARISON: MR lumbar 10/31/2023, 10/31/2022. ACCESSION NUMBER(S): [id number] ORDERING CLINICIAN: JAROCHO DELATORRE TECHNIQUE: CT of the lumbar spine was [...] is measured at 1.1 x 1.0 cm. TELERADIOLOGYPatel, Doc Sparks MD - 11/09/2023 STUDY: CT Lumbar Spine with IV Contrast; 11/09/2023 at 2:52 PM. INDICATION: Pain and swelling. COMPARISON: MR lumbar 10/31/2023, 10/31/2022. ACCESSION NUMBER(S): [id number] ORDERING CLINICIAN: JAROCHO DELATORRE TECHNIQUE: CT of the lumbar spine was [...] protocol CT is recommended. Signed by Doc Romero MD [facility] Work Phone: Radiology Study observation (narrative)[facility] Work Phone: CT Lumbar spine W contrast IVOrdered By: Doc Romero on 13-79-4816QsjsbwfltuJoint Township District Memorial Hospital Work Phone: ESS Westergren method (Bld) [Velocity]on 25-40-9549HUP (Bld) [Velocity]34 mm/hHigh0 - 20 mm/[facility] Interpretation and review of laboratory resultsAbnoMercy Health St. Anne HospitalESR (Bld) [Velocity]34 mm/hHigh0-20 [facility] - AndersonComment on above:Performed By: #### 4537-7 #### DAVILA LEX ([id number]) [facility] ([facility]) [address] [place], [place] [address]No Panel Informationon 85-16-4801Pnvpzehlhicvpm and review of laboratory resultsAbOhioHealth Grove City [facility] THORACIC SPINE WO IV CONTRASTon 17-35-6769LB THORACIC SPINE WO IV CONTRASTInterpreted By: Mora Smith, STUDY: MR THORACIC SPINE WO IV CONTRAST; 11/08/2023 8:25 am INDICATION: Signs/Symptoms:presurgical planning for reimplant of thoracic spinal cord stimulator leads. COMPARISON: None. ACCESSION NUMBER(S): [id number] ORDERING CLINICIAN: CHIRAG REYNOSO TECHNIQUE: Sagittal T1, [...] as described above. MACRO: None Signed by: Mora Smith 11/08/2023 9:53 AM Dictation workstation: [id number] Community Hospital Thoracic spine WO contraston 18-70-5519Abigo is multilevel spondylosis as described above. MACRO: None Signed by: Mora Smith 11/08/2023 9:53 AM Dictation workstation: [id number] MMODALInterpreted By: Mora Smith, STUDY: MR THORACIC SPINE WO IV CONTRAST; 11/08/2023 8:25 am INDICATION: Signs/Symptoms:presurgical planning for reimplant of thoracic spinal cord stimulator leads. COMPARISON: None. ACCESSION NUMBER(S): [id number] ORDERING CLINICIAN: CHIRAG REYNOSO TECHNIQUE: Sagittal T1, [...] obtained through this level limiting further evaluation. [facility] MMODALMora Smith MD - 11/08/2023 Interpreted By: Mora Smith, STUDY: MR THORACIC SPINE WO IV CONTRAST; 11/08/2023 8:25 am INDICATION: Signs/Symptoms:presurgical planning for reimplant of thoracic spinal cord stimulator leads. COMPARISON: None. ACCESSION NUMBER(S): [id number] ORDERING CLINICIAN: CHIRAG REYNOSO TECHNIQUE: Sagittal T1, [...] as described above. MACRO: None Signed by: Mora Smith 11/08/2023 9:53 AM Dictation workstation: [id number] [facility] Work Phone: Radiology Study observation (narrative)[facility] Work Phone: MR Thoracic spine WO contrastOrdered By: Mora Smith on 14-32-2658KlkhieqrzsWood County Hospital Work Phone: ed Note-Physicianon 34-28-6542GC Note-PhysicianNormal [facility] HospitalComment on above:Result Comment: Electronically Signed By: Matthew MILES, Zhane Enriquez\.br\Date and Time Signed: 11/04/2422:31 EDT\.br\Electronically Co-Signed By: Pedro Pablo Fletcher DO\.rufino\Date and Time Co- Signed: 11/06/23 01:08 EDTStaphylococcus aureus.methicillin resistant isolateon 02-74-2674CNJH isol Org specific cx Ql (Nose)Test: Staphylococcus aureus/MRSA colonization, Culture Specimen Source: Nares/Axilla/Groin Specimen Type: Swab Specimen Date: 11/06/2023930 Result Date: 11/08/2023 1203 Result Status: Final result Abnormal: No Resulting Lab: [facility] [address] [place] [address] CULTURE No Staphylococcus aureus isolatedNoBrown Memorial Hospital Comment on above:Performed By: #### 11720-4 #### JOLENE Cantu ([id number]) [facility] ([facility]) [address] [place], [place] [address]ED Clinical Summaryon 98-83-3788MO Clinical SummaryNormal [facility] CenterED Patient Education Noteon 46-92-8955DE Patient Education NoteNoTriHealth CenterED Patient Summaryon 14-06-3008BN Patient SummaryNoProMedica Defiance Regional HospitalC-reactive proteinon 11-01-2023 CRP [Mass/Vol]0.43 mg/dLNINF - 1.00 mg/dLUnWood County HospitalCBC panel Auto (Bld)on 48-55-4495Phbyzgcsvmx distribution width (RBC) [Ratio]13.0 % 11.5 - 14.5 %[facility] HospitalHematocrit (Bld) [Volume fraction] 39.1 %36.0 - 46.0 %[facility] HospitalHemoglobin (Bld) [Mass/Vol] 12.8 g/dL12.0 - 16.0 g/dLUnWood County HospitalInterpretation and review of laboratory resultsNoSamaritan North Health Center (RBC) [Entitic mass]31.4 pg26.0 - 34.0 pgUniversity Hospitals of ClevelandMCHC (RBC) [Mass/Vol]32.7 g/dL32.0 - 36.0 g/dLUnWood County HospitalMCV (RBC) [Entitic vol]96 fL80 - 100 fLUniShelby Memorial HospitalNucleated RBC/100 WBC (Bld) [Ratio]0.0 %[facility] HospitalPlatelets (Bld) [#/Vol] 304 10*3/uLJoint Township District Memorial HospitalRBC (Bld) [#/Vol]4.08 10*6/uL [facility] HospitalWBC (Bld) [#/Vol]6.2 10*3/[facility]riners HospitalUnWood County HospitalCRP [Mass/Vol]on 87-08-1659Ixqgxnsazjuhul and review of laboratory resultsNoProtestant Deaconess HospitalESR Westergren method (Bld) [Velocity]on 32-84-3662JZV (Bld) [Velocity]44 mm/hHigh0 - 20 mm/[facility] Interpretation and review of laboratory resultsAbnoMercy Health St. Anne HospitalMR Lumbar spine WO and W contrast Karen . 3.3 cm fluid collection within the posterior [...] agree with Germaine Solitario DO's (vice president of news) findings as stated. This study was interpreted at [facility], [place], [place]. MACRO: None Signed by: Amy Miller 11/01/2023 12:21 AM Dictation workstation: [id number] MMODALInterpreted By: Amy Miller, Gunner Schneider STUDY: MR LUMBAR SPINE W AND WO IV CONTRAST; 10/31/2023 10:52 pm INDICATION: Signs/Symptoms:r/o infection. COMPARISON: MRI lumbar spine 10/31/2022 ACCESSION NUMBER(S): [id number] ORDERING CLINICIAN: ELKE ADAMS TECHNIQUE: Multiplanar multisequence [...] swelling. Findings appear new since prior imaging. [facility] MMODALSundAmy peraza S, DO - 11/01/2023 Interpreted By: Amy Miller and Stephens Katherine STUDY: MR LUMBAR SPINE W AND WO IV CONTRAST; 10/31/2023 10:52 pm INDICATION: Signs/Symptoms:r/o infection. COMPARISON: MRI lumbar spine 10/31/2022 ACCESSION NUMBER(S): [id number] ORDERING CLINICIAN: ELKE ADAMS TECHNIQUE: Multiplanar multisequence [...] agree with Germaine Solitario DO's (vice president of news) findings as stated. This study was interpreted at [place], [place]. MACRO: None Signed by: Amy Miller 11/01/2023 12:21 AM Dictation workstation: [id number] [facility] Work Phone: UnWood County Hospital Work Phone: MRI LUMBAR SPINE W WO CONTRASTon 49-83-5782MYA LUMBAR SPINE W WO CONTRASTEXAMINATION: MRI OF THE LUMBAR SPINE WITHOUT AND [...] Signed by: Johnson Shin MD 11/01/23 Final resultNormalMercy Galion HospitalNo Panel Informationon 11-01-2023 [facility] HospitalRenal function 2000 panelon 19-74-7519Cihorkq BCP dye [Mass/Vol]3.7 g/dL3.4 - 5.0 g/dLUnWood County HospitalAnion gap [Moles/Vol]12 mmol/L10 - 20 mmol/[facility] HospitalCalcium [Mass/Vol]8.4 mg/dLLow8.6 - 10.6 mg/dLUnWood County HospitalChloride [Moles/Vol]105 mmol/L98 - 107 mmol/[facility] HospitalCO2 [Moles/Vol]25 mmol/L21 - 32 mmol/[facility] HospitalCreatinine [Mass/Vol]0.73 mg/dL0.50 - 1.05 mg/dLUnWood County HospitaleGFR- PINF [facility] on above:Calculations of estimated GFR are performed using the 2020 CKD-EPI Study Refit equation without therace variable for the IDMS-Traceable creatinine methods. https://jasn.asnjournals.org/content//ASN.7885729425 Glucose [Mass/Vol]84 mg/dL74 - 99 mg/dLUnWood County Hospital Interpretation and review of laboratory resultsAbnormalUniShelby Memorial HospitalPhosphate [Mass/Vol]3.1 mg/dL2.5 - 4.9 mg/dLUnProMedica Toledo Hospital on above:The performance characteristics of phosphorus testing in heparinized plasma have been validated by the individual laboratory site where testing is performed. Testing on heparinized plasma is not approved by the FDA; however, such approval is not necessary.Potassium [Moles/Vol]3.9 mmol/L3.5 - 5.3 mmol/[facility] HospitalSodium [Moles/Vol]138 mmol/L136 - 145 mmol/[facility] HospitalUrea nitrogen [Mass/Vol]14 mg/dL6 - 23 mg/dLJoint Township District Memorial HospitalBlood type and Indirect antibody screen panel (Bld)on 36-01-7884RHY group Nom (Bld)OUniShelby Memorial Hospital Blood group antibody screen QlNegativeUnWood County HospitalD Ag Ql (Bld)PositiveUnWood County HospitalUnWood County Hospital CBC W Auto Differential panel (Bld)on 61-06-1361Vbesabzzq (Bld) [#/Vol]0.01 10*3/[facility]riners HospitalBasophils/100 WBC (Bld)0.2 %0.0 - 2.0 % [facility] HospitalEosinophils (Bld) [#/Vol]0.20 10*3/uLJoint Township District Memorial HospitalEosinophils/100 WBC (Bld)3.3 %0.0 - 6.0 %[facility] HospitalErythrocyte distribution width (RBC) [Ratio]13.1 %11.5 - 14.5 %[facility] HospitalHematocrit (Bld) [Volume fraction]37.2 % 36.0 - 46.0 %[facility] HospitalHemoglobin (Bld) [Mass/Vol]12.6 g/dL12.0 - 16.0 g/dLUnWood County HospitalImchristian hospital granulocytes (Bld) [#/Vol]0.01 10*3/[facility] Shriners HospitalImchristian hospital granulocytes/100 WBC (Bld)0.2 %0.0 - 0.9 %[facility] on above: Immature Granulocyte Count (IG) includes promyelocytes, myelocytes and metamyelocytes but does not include bands. Percent differential counts (%) should be interpreted in the context of the absolute cell counts (cells/UL). Lymphocytes (Bld) [#/Vol]1.51 10*3/[facility] Lymphocytes/100 WBC (Bld)24.6 %13.0 - 44.0 %[facility], [facility] ShawH (RBC) [Entitic mass]30.3 pg26.0 - 34.[address] Joseph Warren HospitalHC (RBC) [Mass/Vol]33.9 g/dL32.0 - 36.0 g/dLSelect Medical Cleveland Clinic Rehabilitation Hospital, Edwin ShawV (RBC) [Entitic vol]89 fL80 - 100 fLUniversSelect Specialty Hospital - EvansvilleMonocytes (Bld) [#/Vol]0.45 10*3/[facility]riners HospitalMonocytes/100 WBC (Bld)7.3 %2.0 - 10.0 %[facility] HospitalNeutrophils (Bld) [#/Vol] 3.95 10*3/[facility] on above:Percent differential counts (%) should be interpreted in the context of the absolute cell counts (cells/uL).Neutrophils/100 WBC (Bld)64.4 %40.0 - 80.0 %[facility] HospitalNucleated RBC/100 WBC (Bld) [Ratio]0.0 %[facility] HospitalPlatelets (Bld) [#/Vol]304 10*3/[facility] Shriners HospitalRBC (Bld) [#/Vol]4.16 10*6/[facility]riners HospitalWBC (Bld) [#/Vol]6.1 10*3/[facility]riners HospitalUnWood County HospitalComprehensive metabolic 2000 panelon 48-22-7713Darzdrt BCP dye [Mass/Vol]3.6 g/dL3.4 - 5.0 g/dLUnWood County HospitalALP [Catalytic activity/Vol]75 U/L33 - 110 U/[facility] HospitalALT With P-5'-P [Catalytic activity/Vol]28 U/L7 - 45 U/[place] on above:Patients treated with Sulfasalazine may generate falsely decreased results for ALT.Anion gap [Moles/Vol]13 mmol/L10 - 20 mmol/[facility] HospitalAST With P-5'-P [Catalytic activity/Vol]34 U/L9 - 39 U/[facility] HospitalBilirubin [Mass/Vol]0.5 mg/dL0.0 - 1.2 mg/dLUnWood County HospitalCalcium [Mass/Vol]8.2 mg/dLLow8.6 - 10.6 mg/dLUnWood County HospitalChloride [Moles/Vol]106 mmol/L98 - 107 mmol/[facility] HospitalCO2 [Moles/Vol]24 mmol/L21 - 32 mmol/[facility] HospitalCreatinine [Mass/Vol]0.74 mg/dL0.50 - 1.05 mg/dLUnWood County HospitaleGFR- PINFUniSuburban Community Hospital & [facility] on above:Calculations of estimated GFR are performed using the 2020 CKD-EPI Study Refit equation without therace variable for the IDMS-Traceable creatinine methods. https://jasn.asnjournals.org/content//ASN.6489696516 Glucose [Mass/Vol]90 mg/dL74 - 99 mg/dLUnWood County Hospital Interpretation and review of laboratory resultsAbnoalUBluffton HospitalPotassium [Moles/Vol]4.0 mmol/L3.5 - 5.3 mmol/[facility] HospitalProtein [Mass/Vol]6.6 g/dL6.4 - 8.2 g/dLUnWood County HospitalSodium [Moles/Vol]139 mmol/L136 - 145 mmol/LUnWood County HospitalUrea nitrogen [Mass/Vol]13 mg/dL6 - 23 mg/dLLakeHealth Beachwood Medical CenterExtra Urine Castro Tubeon 10-31-2023 Extra TubeHold for add-ons.[facility] HospitalComment on above: Auto resulted.[facility] HospitalHCG.beta subunit Qnon 10-31-2023 Interpretation and review of laboratory resultsNormalUniShelby Memorial HospitalTotal HCG measurement is performed using the Siemens AtellBrain in Hand immunoassay which detects intact HCG and free beta HCG subunit. This test is not indicated for use as a tumor marker. HCG testing is performed using a different test methodology at [facility] than other [facility]. Dir ect result comparison should only be made within the same method. [facility] Beachwood Medical CenterMR Lumbar spine WO and W contrast Karen 94-95-9360Exebambhc Study observation (narrative) [facility] Work Phone: No Panel Informationon . Nonobstructive bowel gas pattern. No acute osseous abnormality identified. 2. Probable tubal ligation clips and cholecystectomy clips. Otherwise no radiopaque foreign bodies or hardware identified. I personally reviewed the image(s)/study and resident interpretation as stated by Dr. Erin Bob MD. I agree with the findings as stated. This study was interpreted at [facility], [place], [place]. MACRO: None Signed by: Amy Miller 10/31/2023 10:52 PM Dictation workstation: [id number] By: Amy Miller and [place] Lesley STUDY: XR PELVIS 1-2 VIEWS; XR ABDOMEN 1 VIEW; ; 10/31/2023 9:47 pm INDICATION: Signs/Symptoms:evaluate for abandoned SCS leads prior to MRI. COMPARISON: None ACCESSION NUMBER(S): [id number]; [id number] ORDERING CLINICIAN: GERMAINE SOLITARIO FINDINGS: AP views [...] cardiac silhouette are unremarkable. Moderate stool burden. MMODALSuAmy doherty S, DO - 10/31/2023 Interpreted By: Amy Miller and [place] Lesley STUDY: XR PELVIS 1-2 VIEWS; XR ABDOMEN 1 VIEW; ; 10/31/2023 9:47 pm INDICATION: Signs/Symptoms:evaluate for abandoned SCS leads prior to MRI. COMPARISON: None ACCESSION NUMBER(S): [id number]; [id number] ORDERING CLINICIAN: GERMAINE SOLITARIO FINDINGS: AP views [...] as stated. This study was interpreted at [facility], [place], [place]. MACRO: None Signed by: Amy Miller 10/31/2023 10:52 PM Dictation workstation: [id number] [facility] Work Phone: UnWood County Hospital Work Phone: Radiology Study observation (narrative)[facility] Work Phone: Urinalysis complete W Reflex Culture panel (U)on 29-12-1642Qhlqgdhnby (U)TurbidAbnormalClearUnWood County Hospital Bilirubin (U) [Mass/Vol]NegativeNEGATIVEUnWood County HospitalColor (U)YellowLight-Yellow, Yellow, Dark-YellowUnWood County Hospital Epithelial cells.squamous Auto (Urine sed) [#/Area]26-50 (1+)Reference range not established. /[facility] Hospital for RehabilitationGlucose Auto test strip (U) [Mass/Vol]NormalNormal mg/dLUnWood County HospitalInterpretation and review of laboratory resultsAbnormalUniShelby Memorial HospitalKetones (U) [Mass/Vol]NegativeNEGATIVE mg/dLUnWood County HospitalLeukocyte esterase Auto test strip Ql (U)NegativeNEGATIVEUnWood County Hospital Mucus Auto (Urine sed) [#/Area]3+Reference range not established. /LPFUniShelby Memorial HospitalNitrite Auto test strip Ql (U)NegativeNEGATIVEUnWood County HospitalpH (U)6.0 [pH]5.0, 5.5, 6.0, 6.5, 7.0, 7.5, 8.0UnWood County HospitalProtein (U) [Mass/Vol]30 (1+)AbnormalNEGATIVE, 10 (TRACE), 20 (TRACE) mg/dLUnWood County HospitalRBC (U) [#/Vol]Negative NEGATIVEUnWood County HospitalRBC Auto (Urine sed) [#/Area]1-2NONE, 1-2, 3-5 /[facility] for RehabilitationSpecific gravity (U) [Rel density] 1.0331.005 - 1.035UnWood County HospitalUrobilinogen (U) [Mass/Vol] NormalNormal mg/dLUnWood County HospitalWBC Auto (Urine sed) [#/Area] 1-51-5, NONE /[facility] HOSPITALUnWood County HospitalUnWood County HospitalXR ABDOMEN (KUB) (SINGLE AP VIEW)on 98-32-3230HD ABDOMEN (KUB) (SINGLE AP VIEW)EXAMINATION: ONE SUPINE XRAY VIEW(S) OF THE ABDOMEN 10/30/2023 7:26 pm COMPARISON: CT abdomen January 30, 2014 HISTORY: ORDERING SYSTEM PROVIDED HISTORY: rule out FB in lumbar spine from spinal stimulator 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 No other foreign body. 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 No evidence of free air. 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 No other foreign body. [facility]ITALXR Abdomen Single viewOrdered By: Liyah Miranda on 32-50-7394YLM [facility] Work Phone: xr Chest Single viewon . No evidence of acute cardiopulmonary process. No focal consolidations. 2. Remote/healed right distal 2/3 clavicular fracture. I personally reviewed the images/study and I agree with Dr. Lucio Chadwick findings as stated. This study was interpreted at [place], [place] MACRO: None Signed by: Amy Miller 10/31/2023 4:46 AM Dictation workstation: [id number] By: Amy Miller and Kamau Nyokabi STUDY: XR CHEST 1 VIEW; 10/31/2023 4:38 am INDICATION: Signs/Symptoms:infectious work up. COMPARISON: None. ACCESSION NUMBER(S): [id number] ORDERING CLINICIAN: ELKE ADAMS FINDINGS: AP radiographs of the chest were provided. CARDIOMEDIASTINAL SILHOUETTE: Cardiomediastinal silhouette is normal in size and configuration. LUNGS: Bilateral lungs appear clear. No pneumothorax, pleural effusion, or focal consolidation. ABDOMEN: No remarkable upper abdominal findings. BONES: Remote/healed right distal 2/3 clavicular fracture. No acute osseous changes. MMODALSuAmy doherty S, DO - 10/31/2023 Interpreted By: Amy Miller and Kamau Nyokabi STUDY: XR CHEST 1 VIEW; 10/31/2023 4:38 am INDICATION: Signs/Symptoms:infectious work up. COMPARISON: None. ACCESSION NUMBER(S): [id number] ORDERING CLINICIAN: ELKE ADAMS FINDINGS: AP radiographs [...] as stated. This study was interpreted at [facility], [place], [place] MACRO: None Signed by: Amy Miller 10/31/2023 4:46 AM Dictation workstation: [id number] [facility] Work Phone: Radiology Study observation (narrative)[facility] Work Phone: XR Chest Single viewOrdered By: Amy Miller on 17-87-7053PsxpjygaeiWood County Hospital Work Phone: hCG, quantitative, pregnancyon 36-29-0921ZWQ.beta subunit QnNINFUnWood County HospitalBasic Metabolic Panelon 33-84-2306Snxfb gap [Moles/Vol]10 mmol/L9 - 17 mmol/LBON SECOURS MER[facility]ALTH Calcium [Mass/Vol]8.7 mg/dL8.6 - 10.4 mg/dLBON SECOURS MERCY HEALTHChloride [Moles/Vol]103 mmol/L98 - 107 mmol/LBON SECOURS MERCY HEALTHCO2 [Moles/Vol]25 mmol/L20 - 31 mmol/LBON SECOURS MERCY HEALTHCreatinine [Mass/Vol]0.7 mg/dL0.5 - 0.9 mg/dLBON SECOURS MERCY HEALTHEst, Glom Filt Rate- PINFBON SECOURS InStore Audio NetworkY HEALTHComment on above: These results are not intended [...] therapy that affects renal tubular secretion. Glucose [Mass/Vol]96 mg/dL70 - 99 mg/dLBON SECOURS MERCY HEALTHPotassium [Moles/Vol]4.1 mmol/L3.7 - 5.3 mmol/LBON SECOURS MERCY HEALTHSodium [Moles/Vol] 138 mmol/L135 - 144 mmol/LBON SECOURS MERCY HEALTHUrea nitrogen [Mass/Vol]13 mg/dL6 - 20 mg/dLBON SECOURS MERCY HEALTHBasic Metabolic Profon 94-13-1199Vhnjt gap [Moles/Vol]10 mmol/LNormal9-17Firelands Regional Medical CenterComment on above: Performed By: #### BMP, CDP, CRP #### [facility] [address] [place] [address] Clay Maker: Keke Romero DO #### SED #### [address] [address] Clay Maker: Jose Enrique Oneal MDCalcium [Mass/Vol]8.7 mg/dLNormal8.6-10.4Firelands Regional Medical CenterComment on above:Performed By: #### AKIL HERNANDEZ, CRP #### [facility] [address] [place] [address] Clay Maker: Keke Romero DO #### SED #### [address] [address] Clay Maker: JOSE Merritthloride [Moles/Vol]103 mmol/WVidnvn72-835JskcpFirelands Regional Medical CenterComment on above:Performed By: #### MARY, AKIL, CRP #### [facility] [address] [place] [address] Clay Maker: Keke Romero DO #### SED #### [address] [address] Clay Maker: Jose Enrique Oneal MDCO2 [Moles/Vol]25 mmol/NGjirds32-90WdymjFirelands Regional Medical CenterCommclaren [place] on above:Performed By: #### BMP, CDP, CRP #### [facility] [address] [place] [address] Clay Maker: Keke Romero DO #### SED #### [facility] [employer] [address] [place] [address] Clay Maker: JOSE Merrittreatinine [Mass/Vol]0.7 mg/dLNormal0.5-0.9Firelands Regional Medical CenterComment on above:Performed By: #### AKIL HERNANDEZ CRP #### [facility] [address] [place] [address] Clay Maker: Keke Romero DO #### SED #### [address] [phone] Clay Maker: Jose Enrique Oneal MDGFR/1.73 sq M.predicted among non-blacks MDRD (S/P/Bld) [Vol rate/Area]mL/min/{1.73_m2}Normal>60[facility] Comment on above:Result Comment: These results are not intended for [...] or following therapy that affects renal tubular secretion.Performed By: #### AKIL HERNANDEZ CRP #### [facility] [address] [place] [address] Clay Maker: Keke Romero DO #### SED #### [address] [address] Clay Maker: Jose Enrique Oneal MDGlucose [Mass/Vol]96 mg/vTPfdmsh36-94SsnnnMercy Health Allen HospitalComment on above:Performed By: #### AKIL HERNANDEZ, CRP #### [facility] [address] [place] [address] Clay Maker: Keke Romero DO #### SED #### [address] [address] Clay Maker: TOLU Merrittotassium [Moles/Vol]4.1 mmol/LNormal3.7-5.3 [facility] CenterCommclaren northern [place] on above:Performed By: #### BMP, CDP, CRP #### [facility] [address] [place] [address] Clay Maker: Keke Romero DO #### SED #### [address] [address] Clay Maker: ISAIAH Merrittodium [Moles/Vol]138 mmol/NVdzdly416-052UywrmFirelands Regional Medical CenterComment on above:Performed By: #### BMP, CDP, CRP #### [facility] [address] [place] [address] Clay Maker: Keke Romero DO #### SED #### [address] [address] Clay Maker: Jose Enrique Oneal MDUrea nitrogen [Mass/Vol]13 mg/dLNormal6-20Firelands Regional Medical CenterComment on above:Performed By: #### BMP, CDP, CRP #### [facility] [address] [place] [address] Clay Maker: Keke Romero DO #### SED #### [address] [address] Clay Maker: Jose Enrique Oneal MDC-Reactive Proteinon 77-75-4757GZN High sensitivity method [Mass/Vol]3.6 mg/L0.0 - 5.0 mg/LBON SECSUBURB[facility] & BRENTWOOD HOSPITALCRP [Mass/Vol]3.6 mg/LNormal0.0-5.0Fire[facility] Medical CenterCommclaren northern [place] on above: Performed By: #### BMP, CDP, CRP #### [facility] [address] [place] [address] Clay Maker: Keke Romero DO #### SED #### [facility] [address] [place] [address] Clay Maker: Jose Enrique Oneal [facility] with Auto Differentialon 77-49-4686Cyrxxpzsz (Bld) [#/Vol]0.00 10*3/uLBON SECOURS MADISON HEALTH HEALTHBasophils/100 WBC (Bld)0 %0 - 2 %[facility] HEALTHEosinophils (Bld) [#/Vol]0.10 10*3/uLBON SECOURS MADISON HEALTH HEALTHEosinophils/100 WBC (Bld)2 %0 - 4 %[facility] Erythrocyte distribution width (RBC) [Ratio]14.2 %11.5 - 14.9 %[facility] SECSUBURBAN COMM[facility] & BRENTWOOD HOSPITALHematocrit (Bld) [Volume fraction]42.0 %36 - 46 %[facility] Hemoglobin (Bld) [Mass/Vol]13.8 g/dL12.0 - 16.0 g/dLBON SECSUBURB[facility] Lymphocytes/100 WBC (Bld)25 %24 - 44 %[facility] & BRENTWOOD HOSPITALLymphocytes/100 WBC (Bld)2.50 %[facility] SYSTEMH (RBC) [Entitic mass]31.3 pg26 - 34 pg [facility] SYSTEMHC (RBC) [Mass/Vol]33.0 g/dL31 - 37 g/dLBON SECST. FRANCIS HOSPITALV (RBC) [Entitic vol]95.0 fL80 - 100 fLBON SECOURS [facility]ADISON HEALTH HEALTH Monocytes/100 WBC (Bld)7 %1 - 7 %[facility] BRENTWOOD HOSPITALMonocytes/100 WBC (Bld) 0.70 %[facility] BRENTWOOD HOSPITALNeutrophils/100 WBC (Bld)66 %36 - 66 %[facility] BRENTWOOD HOSPITALPlatelet mean volume (Bld) [Entitic vol]8.1 fL6.0 - 12.0 fLBON SECOURS MADISON HEALTH HEALTHPlatelets (Bld) [#/Vol]347 10*3/uLB[facility] RBC (Bld) [#/Vol]4.42 10*6/uL4.0 - 5.2 m/uLBON SECOURS [facility] HOSPITALY BUCYRUS COMMUNITY HOSPITALSegmented neutrophils/100 WBC (Bld)6.60 %[facility] MEDICAL CENTERWBC other (Bld) [#/Vol] 9.9[facility] CENTERBON [facility] MEDICAL CENTERCBC with Diffon 10-30-2023 Abs. Basophil0.00 k/uLNormal0.0-0.2Mercy Galion HospitalComment on above: Performed By: #### BMP, CDP, CRP #### [facility] [address] [place] [address] Clay Maker: Keke Romero DO #### SED #### [place] [address] Clay Maker: Kim Merritt.Neutrophil (Seg)6.60 k/uLNormal1.3-9.1Mercy Galion HospitalComment on above:Performed By: #### BMP, CDP, CRP #### [facility] [address] [place] [address] Clay Maker: Keke Romero DO #### SED #### [place] [address] Clay Maker: Jose Enrique Oneal MDBasophils/100 WBC (Bld)0 %Normal0-2Mercy Galion HospitalComment on above:Performed By: #### BMP, CDP, CRP #### [facility] [address] [place] [address] Clay Maker: Keke Romero DO #### SED #### [address] [address] Clay Maker: IMANI Merrittosinophils (Bld) [#/Vol]0.10 10*3/uLNormal 0.0-0.4Mercy Galion HospitalComment on above:Performed By: #### BMP, CDP, CRP #### [facility] [address] [place] [address] Clay Maker: Keke Romero DO #### SED #### [address] [address] Clay Maker: Jose Enrique Oneal MDEosinophils/100 WBC (Bld)2 %Normal0-4Firelands Regional Medical CenterComment on above:Performed By: #### BMP, CDP, CRP #### [facility] [address] [place] [address] Clay Maker: Keke Romero DO #### SED #### [address] [address] Clay Maker: Jose Enrique Oneal MDErythrocyte distribution width (RBC) [Ratio]14.2 %Wcxwxl67.5-14.9Firelands Regional Medical CenterComment on above:Performed By: #### AKIL HERNANDEZ, CRP #### [facility] [address] [place] [address] Clay Maker: Keke Romero DO #### SED #### [address] [address] Clay Maker: Jose Enrique Oneal MDHematocrit (Bld) [Volume fraction]42.0 %Normal 36-46Firelands Regional Medical CenterComment on above:Performed By: #### MARY, CDP, CRP #### [facility] [address] [place] [address] Clay Maker: Keke Romero DO #### SED #### [address] [address] Clay Maker: Jose Enrique Oneal MDHemoglobin (Bld) [Mass/Vol]13.8 g/dLNormal 12.0-16.0Firelands Regional Medical CenterComment on above:Performed By: #### BMP, CDP, CRP #### [facility] [address] [place] [address] Clay Maker: Keke Romero DO #### SED #### [address] [address] Clay Maker: Jose Enrique Oneal MDLymphocytes (Bld) [#/Vol]2.50 10*3/uLNormal 1.0-4.8Fire[facility] Medical CenterCommclaren northern [place] on above:Performed By: #### BMP, CDP, CRP #### [facility] [address] [place] [address] Clay Maker: Keke Romero DO #### SED #### [address] [address] Clay Maker: Chula Merrittmphocytes/100 WBC (Bld)25 %Gnwvlf66-72BuyrwFirelands Regional Medical CenterComment on above:Performed By: #### BMP, CDP, CRP #### [facility] [address] [place] [address] Clay Maker: Keke Romero DO #### SED #### [address] [address] Clay Maker: BASILIO MerrittCH (RBC) [Entitic mass]31.3 phVbwuzc03-37XegdyFirelands Regional Medical CenterCommclaren northern [place] on above:Performed By: #### BMP, CDP, CRP #### [facility] [address] [place] [address] Clay Maker: Keke Romero DO #### SED #### [address] [address] Clay Maker: CASSIUS MerrittC (RBC) [Mass/Vol]33.0 g/aKVdkavy59-62FymjiCleveland Clinic Akron General on above:Performed By: #### BMP, CDP, CRP #### [facility] [address] [place] [address] Clay Maker: Keke Romero DO #### SED #### [address] [address] Clay Maker: BASILIO MerrittCV (RBC) [Entitic vol]95.0 yOItuurd38-632KmwkhSheltering Arms Hospital on above:Performed By: #### BMP, CDP, CRP #### [facility] [place] [address] Clay Maker: Keke Romero DO #### SED #### [address] [address] Clay Maker: BASILIO Merrittonocytes (Bld) [#/Vol]0.70 10*3/uLNormal0.1-1.3 [facility] on above:Performed By: #### BMP, CDP, CRP #### [facility] [place] [address] Clay Maker: Keke Romero DO #### SED #### [address] [address] Clay Maker: BASILIO Merrittonocytes/100 WBC (Bld)7 %Normal1-7[facility] on above:Performed By: #### BMP, CDP, CRP #### [facility] [place] [address] Clay Maker: Keke Romero DO #### SED #### [address] [address] Clay Maker: Jose Enrique Oneal MDNeutrophil (Seg)66 %Xqnepr38-51QyynrSheltering Arms Hospital on above:Performed By: #### BMP, CDP, CRP #### [facility] [address] [place] [address] Clay Maker: Keke Romero DO #### SED #### [address] [address] Clay Maker: Noe Merritt mean volume (Bld) [Entitic vol]8.1 fL Normal6.0-12.0[facility] on above:Performed By: #### BMP, CDP, CRP #### [facility] [place] [address] Clay Maker: Keke Romero DO #### SED #### [address] [address] Clay Maker: Adrián Merritt (Bld) [#/Vol]347 10*3/iRWecsar275-141 [facility] on above:Performed By: #### BMP, CDP, CRP #### [facility] [address] [place] [address] Clay Maker: Keke Romero DO #### SED #### [address] [address] Clay Maker: RAMONITA Merritt (Bld) [#/Vol]4.42 10*6/uLNormal4.0-5.2MSelect Medical Specialty Hospital - Akron on above:Performed By: #### BMP, CDP, CRP #### [facility] [place] [address] Clay Maker: Keke Romero DO #### SED #### [address] [address] Clay Maker: DHIRAJ Merritt (Bld) [#/Vol]9.9 10*3/uLNormal3.5-11.0Fire[facility] Regional Medical CenterComment on above:Performed By: #### AKIL HERNANDEZ, CRP #### [facility] [address] [place] [address] Clay Maker: Keke Romero DO #### SED #### [employer] [address] [place] [phone] Clay Maker: REBEKAH Merritt Clinical Summaryon [id number] Clinical SummaryNormBlanchard Valley Health System [facility] CenterED Note-Physicianon [id number] Note-PhysicianNewark HospitalComment on above:Result Comment: Electronically Signed By: Annette Watkins, Balbina Sparks\.br\Date and Time Signed: 10/29/2414:29 EDTED Patient Education Noteon [id number] Patient Education Note NormalOhiohealth Berger Hospital CenterED Patient Summaryon [id number] Patient SummaryNormUniversity Hospitals Geauga Medical CenterNo Panel Informationon 18-83-5784FWI [facility] MEDICAL CENTERSedimentation Rateon 17-67-9544CFM Photometric method (Bld) [Velocity]32HighBON [facility]ICAL CENTERInterpretation and review of laboratory resultsAbnormalBON [facility]ENTERSedimentation Rate32 mm/HrHigh0-20Fire[facility] Medical CenterComment on above:Performed By: #### AKIL HERNANDEZ, CRP #### [facility] [address] [place] [address] Clay Maker: Keke Romero DO #### SED #### [employer] [employer] [address] [place] [phone] Clay Maker: AVERY Merritt Abdomen Single viewon 63-12-0185Mexubvmrp Study observation (narrative)[facility]ITALED Clinical Summaryon [id number] Clinical SummaryNoTriHealth CenterED Note-Physician on [id number] Note-PhysicianNoProMedica Defiance Regional HospitalComment on above: Result Comment: Electronically Signed By: Pedro Pablo Fletcher DO\Date and Time Signed: 10/26/23 03:05 EDTED Patient Education Noteon [id number] Patient Education NoteNormOhio State Harding Hospital Patient Summaryon [id number] Patient SummaryNoProMedica Defiance Regional HospitalAlanine aminotransferase [Enzymatic activity/volume] in Serum or PlasmaOrdered By: Mora Veliz on 44-61-2343MDV [Catalytic activity/Vol]41 U/L7-52[facility]opedic CenterAlbumin [Mass/volume] in Serum or Plasma by Bromocresol green (BCG) dye binding methoOrdered By: Mora Veliz on 51-84-6674Qwflksn BCG dye [Mass/Vol] 4.0 g/dL3.5-5.7FAdena Health SystemAlkaline phosphatase [Enzymatic activity/volume] in Serum or PlasmaOrdered By: Mora Veliz on 30-87-0785LMP [Catalytic activity/Vol]92 U/F61-845NfmidesmqCrystal Clinic Orthopedic CenterAspartate aminotransferase [Enzymatic activity/volume] in Serum or PlasmaOrdered By: Mora Veliz on 73-81-1887USB [Catalytic activity/Vol]22 U/A35-07ArjruewyxCrystal Clinic Orthopedic CenterBacteria [Presence] in Urine by AutomatedOrdered By: Mora Veliz on 13-18-4346Jqogiaoi Auto Ql (U)None seen [HPF]None Seen [facility] CenterBacterial blood cultureOrdered By: Mora Veliz on 54-45-0658Zdmsrwia identified Cx Nom (Bld)NO GROWTH 5 DAYSCrystal Clinic Orthopedic CenterBacteria identified Cx Nom (Bld)NO GROWTH 5 DAYSCrystal Clinic Orthopedic CenterBasophils Auto (Bld) [#/Vol]Ordered By: Mora Veliz on 11-53-4607Nssszttzr (Bld) [#/Vol]0.0 10*3/uL0.0-0.2FAdena Health SystemBasophils/100 WBC Auto (Bld)Ordered By: Mora Veliz on 10-19-2023 Basophils/100 WBC (Bld)0.3 %.[facility] CenterBilirubin Test strip Ql (U)Ordered By: Mora Veliz on 71-75-8178Swzogdfdk Ql (U)Negative NegativeCrystal Clinic Orthopedic CenterBilirubin.total [Mass/volume] in Serum or PlasmaOrdered By: Mora Veliz on 86-04-9358Pemthtxki [Mass/Vol]0.5 mg/dL 0.3-1.0[facility] CenterCOVID CepheidOrdered By: Mora Veliz on 06-45-7587YKZO-CoV-2 (COVID-19) Ab IA QlNegativeNegativeCrystal Clinic Orthopedic CenterComment on above:This is a duplicate Galaxy Digital Xpert Xpress CoV- 2/Flu/RSV Plus RNA by RT-PCR result to be used for statistical tracking purpose only.SARS-CoV-2 (COVID-19) RNA LINDSEY+probe Ql (Unsp spec)[facility] CenterCalcium [Mass/volume] in Serum or PlasmaOrdered By: Mora Veliz on 34-80-9267Qvnpeeu [Mass/Vol]8.9 mg/dL8.6-10.3FAdena Health SystemCarbon dioxide, total [Moles/volume] in Serum or PlasmaOrdered By: Mora Veliz on 98-94-2642HJ8 [Moles/Vol]25.7 mmol/L21.0-31.0[facility] CenterChloride [Moles/volume] in Serum or PlasmaOrdered By: Mora Veliz on 66-36-2085Jryvyjmb [Moles/Vol]107 mmol/R29-355VzeyegartCrystal Clinic Orthopedic CenterColor Auto (U)Ordered By: Mora Veliz on 23-23-8973Fbomv (U) YellowYellowCrystal Clinic Orthopedic CenterCreatinine [Mass/volume] in Serum or PlasmaOrdered By: Mora Veliz on 30-41-1272Stqkgqbpqb [Mass/Vol]0.74 mg/dL 0.60-1.20[facility] CenterEosinophils Auto (Bld) [#/Vol]Ordered By: Mora Veliz on 49-83-6877Zvyiwjuqmsb (Bld) [#/Vol]0.2 10*3/uL0.0-0.45 [facility] CenterEosinophils/100 WBC Auto (Bld)Ordered By: Mora Veliz on 62-84-7070Roeipuihqcv/100 WBC (Bld)1.9 %.[facility] CenterEpithelial cells.squamous [#/area] in Urine sediment by Automated countOrdered By: Mora Veliz on 15-64-4931Kcpaxchbme cells.squamous Auto (Urine sed) [#/Area]3-4 [HPF]High0-2FAdena Health SystemErythrocyte distribution width Auto (RBC) [Ratio]Ordered By: Mora Veliz on 10-19-2023 Erythrocyte distribution width (RBC) [Ratio]13.9 %11.9-15.3FAdena Health SystemErythrocytes [#/area] in Urine sediment by Automated countOrdered By: Mora Veliz on 28-31-4046XXN Auto (Urine sed) [#/Area]1-2 [HPF]0-4 [facility] CenterGlobulin Calc (S) [Mass/Vol]Ordered By: Mora Veliz on 28-93-9273Yblzwinb (S) [Mass/Vol]3.4 g/dLCrystal Clinic Orthopedic CenterGlucose [Mass/volume] in Serum or PlasmaOrdered By: Mora Veliz on 53-66-7010Rfqqolt [Mass/Vol]87 mg/yF98-458GimzqmiiqCrystal Clinic Orthopedic Center Comment on above:ADA recommended reference rangeRandom Glucose Reference Range is dependent on time and content of last meal. Glucose of more than 200 mg/dL in a nonstressed, ambulatory subject supports the diagnosisof Diabetes Mellitus. Glucose [Mass/volume] in Urine by Test stripOrdered By: Mora Veliz on 90-32-2907Udlnsul Test strip (U) [Mass/Vol]Normal mg/dLNoUniversity Hospitals Samaritan Medical CenterGranular casts [#/area] in Urine by Computer assisted method Ordered By: Mora Veliz on 96-67-8152Egdrdmgo casts Computer assisted (U) [#/Area]1-2 [LPF]HighNone SeenCrystal Clinic Orthopedic CenterHematocrit Auto (Bld) [Volume fraction]Ordered By: Mora Veliz on 70-73-2313Owzpmnwavj (Bld) [Volume fraction]41.9 %34.0-46.4FAdena Health SystemHemoglobin Test strip Ql (U)Ordered By: Mora Veliz on 19-70-6632Rnzjwjzxfc Ql (U)Negative NegativeCrystal Clinic Orthopedic CenterHemoglobin [Mass/volume] in Blood Ordered By: Mora Veliz on 32-23-8068Gpqswnspnn (Bld) [Mass/Vol]14.2 g/dL 11.8-15.4FAdena Health SystemHyaline casts [#/area] in Urine sediment by Automated countOrdered By: Mora Veliz on 55-90-2842Prpqbsp casts Auto (Urine sed) [#/Area]0-8 [LPF]0-8[facility] CenterKetones Test strip Ql (U)Ordered By: Mora Veliz on 18-97-3193Kbvludx Ql (U)Negative NegativeCrystal Clinic Orthopedic CenterLaboratory - Chemistry and Chemistry - challengeOrdered By: Mora Veliz on 03-53-0462DN9 [Moles/Vol]24.8 mmol/L 24.0-29.0[facility]opedic CenterHCO3 (Bld) [Moles/Vol]23.6 mmol/L 23.0-29.0[facility] CenterLactate [Moles/volume] in Serum or PlasmaOrdered By: Mora Veliz on 27-79-6027Hdsnbzb [Moles/Vol]1.0 mmol/L 0.5-2.2FAdena Health SystemLeukocyte esterase [Presence] in Urine by Test stripOrdered By: Mora Veliz on 04-24-5699Smxzclwxz esterase Test strip Ql (U)NegativeNegativeCrystal Clinic Orthopedic CenterLeukocytes [#/area] in Urine sediment by Automated countOrdered By: Mora Veliz on 10-33-2307SYG Auto (Urine sed) [#/Area]1-2 [HPF]0-4FAdena Health System Leukocytes [#/volume] corrected for nucleated erythrocytes in Blood by Automated counOrdered By: Mora Veliz on 26-68-8789VHW corrected for nucl RBC Auto (Bld) [#/Vol]11.5 10*3/uL3.8-11.6FAdena Health SystemLymphocytes Auto (Bld) [#/Vol]Ordered By: Mora Veliz on 16-56-8120Ipppmzwhhca (Bld) [#/Vol]2.2 10*3/uL1.00-4.8[facility]opedic CenterLymphocytes/100 WBC Auto (Bld)Ordered By: Mora Veliz on 56-88-6493Rkpycvuapju/100 WBC (Bld)18.7 %.[facility] HospitalH Auto (RBC) [Entitic mass]Ordered By: Mora Veliz on 93-32-4910ZDE (RBC) [Entitic mass]31.9 pg24.7-34.3FAdena Health SystemMCHC Auto (RBC) [Mass/Vol]Ordered By: Mora Veliz on 70-79-9856RSHZ (RBC) [Mass/Vol]34.0 g/dL32.0-35.0[facility] CenterMCV Auto (RBC) [Entitic vol]Ordered By: Mora Veliz on 30-47-8051JJS (RBC) [Entitic vol]93.6 pW39-978NbrvtmzhgCrystal Clinic Orthopedic CenterMonocyte distribution width [Entitic volume] in Blood by AutomatedOrdered By: Mora Veliz on 42-99-5380Mtuyghzy distribution width Auto (Bld) [Entitic vol]19.02 % 0.00-20.00[facility]opedic CenterMonocytes Auto (Bld) [#/Vol]Ordered By: Mora Veliz on 72-77-8400Athuiyzce (Bld) [#/Vol]0.8 10*3/uL0.0-0.8 [facility] CenterMonocytes/100 WBC Auto (Bld)Ordered By: Mora Veliz on 11-11-1982Vttcpbhux/100 WBC (Bld)6.8 %.[facility] CenterMucus [Presence] in Urine by AutomatedOrdered By: Mora Veliz on 33-64-3355Jgqtz Auto Ql (U)Rare [LPF][facility] Neutrophils Auto (Bld) [#/Vol]Ordered By: Mora Veliz on 10-19-2023 Neutrophils (Bld) [#/Vol]8.3 10*3/uLHigh1.8-7.7FAdena Health System Neutrophils/100 WBC Auto (Bld)Ordered By: Mora Veliz on 10-19-2023 Neutrophils/100 WBC (Bld)72.3 %.[facility] CenterNitrite Test strip Ql (U)Ordered By: Mora Veliz on 89-76-4546Wdbkwsi Ql (U)Negative NegativeCrystal Clinic Orthopedic CenterNo Panel InformationOrdered By: Mora Veliz on 24-26-8785Rnukf Gas Critical ValueSee commentCrystal Clinic Orthopedic CenterComment on above:Critical Value called on: 10/19/2023 at 12:39 Blood Gas Sample SiteVenousCrystal Clinic Orthopedic CenterFiO221 %[facility]opedic CenterVenous Blood Base Excess-0.8 mmol/L-3.0-3.0[facility]opedic CenterVenous Blood Oxygen Content6.1 mmol/LLow6.6-9.7FAdena Health SystemVenous Blood Oxygen Czftdszpmf72.1 %Low73.0-76.0[facility]opedic CenterVenous Blood Partial Pressure CO238.6 mm[Hg]38.0-50.0 [facility] CenterVenous Blood Partial Pressure O234.7 mm[Hg]Low 35.0-45.0[facility]opedic CenterVenous Blood pH7.417.32-7.43[facility] CenterEstimated GFR (CKD-EPI)> 60.0 mL/MinCrystal Clinic Orthopedic CenterPharmacy Creatinine Clearance (Avql279.17[facility] CenterNucleated erythrocytes [Presence] in Blood by Automated count Ordered By: Mora Veliz on 71-94-4928Vqhgtticx RBC Auto Ql (Bld)0.2 /100{WBC} 0-0.5FAdena Health SystemPlatelet mean volume Auto (Bld) [Entitic vol]Ordered By: Mora Veliz on 26-77-7877Narbxvvf mean volume (Bld) [Entitic vol]8.1 fL6.3-10.7FAdena Health SystemPlatelets Auto (Bld) [#/Vol] Ordered By: Mora Veliz on 47-85-6030Nripzwfbp (Bld) [#/Vol]317 10*3/uL 150-450C[facility]opedic CenterPotassium [Moles/volume] in Serum or PlasmaOrdered By: Mora Veliz on 17-45-8146Mfqvjsdhx [Moles/Vol]4.2 mmol/L 3.5-5.1FAdena Health SystemComment on above:Hemolysis is present at a level that could interfere with the result.Contact lab if redraw is required Protein Test strip (U) [Mass/Vol]Ordered By: Mora Veliz on 99-32-8938Achxihy (U) [Mass/Vol]20 mg/dLHighNegativeCrystal Clinic Orthopedic CenterProtein [Mass/volume] in Serum or PlasmaOrdered By: Mora Veliz on 97-73-9938Jqtzxgp [Mass/Vol]7.4 g/dL6.4-8.9[facility] CenterRBC Auto (Bld) [#/Vol] Ordered By: Mora Veliz on 12-76-2251DLM (Bld) [#/Vol]4.47 10*6/uL3.60-5.00 [facility] Hamiltonerum or plasma albumin/globulin mass ratio Ordered By: Mora Veliz on 69-16-8273Puyxakn/Globulin [Mass ratio]1.2 {ratio} [facility] Hamiltonerum or plasma anion gap determinationOrdered By: Mora Veliz on 63-66-3677Ucdkw gap [Moles/Vol]10.5 mmol/L6.0-15.0 [facility] Hamiltonodium [Moles/volume] in Serum or PlasmaOrdered By: Mora Veliz on 49-89-3825Rbedqb [Moles/Vol]139 mmol/S634-678YukzjcsrmKettering Health Hamiltonpecific gravity Test strip (U) [Rel density]Ordered By: Mora Veliz on 93-14-5787Ekcvldmf gravity (U) [Rel density]1.0271.001-1.030 [facility]opedic CenterUrea nitrogen [Mass/volume] in Serum or Plasma Ordered By: Mora Veliz on 75-41-7032Otpm nitrogen [Mass/Vol]17 mg/dL7-25 [facility] CenterUrine appearanceOrdered By: Mora Veliz on 06-50-1035Ocjdhlwkul (U)ClearClearFAdena Health SystemUrobilinogen Test strip (U) [Mass/Vol]Ordered By: Mora Veliz on 88-09-9148Daccaedtghju (U) [Mass/Vol]Normal mg/dLNormalCrystal Clinic Orthopedic CenterWBC Auto (Bld) [#/Vol]Ordered By: Mora Veliz on 75-09-7876BRU (Bld) [#/Vol]11.5 10*3/uL 3.8-11.6FAdena Health SystempH Test strip (U)Ordered By: Mora Veliz on 95-38-7074tK (U)6.5 [pH]5.0-9.0[facility] CenterCoding Summaryon 75-01-6620Iyosni SummaryHTMLBase 64 GbdvhcbkIXq2qEf+PGhlYWQ+TB4BROQnI06sdOZyaQ2tM0IINUuNBiasXYKFHDkRNbWpsjWxRT3vtWGm ZXJu [file] LWN (more content not included)...[facility] HospitalCoding Summaryon 89-82-8380Tfvseq SummaryHTMLBase 64 GknmoavmUYj1gVh+PGhlYWQ+RQ8YNGJmW58dyZWknN0aA4VBYPePRjojRVGQRNdQDmRmrzFtGU5bvLXo ZXJu [file] LWN (more content not included)...[facility] CenterBlood type and Indirect antibody screen panel (Bld)on 01-91-7254RPR group Nom (Bld)OUniShelby Memorial HospitalBlood group antibody screen QlNegativeJoint Township District Memorial HospitalD Ag Ql (Bld)PositiveLakeHealth Beachwood Medical CenterESR Westergren method (Bld) [Velocity]on 54-79-3794WWL (Bld) [Velocity]35 mm/hHigh0 - 20 mm/[facility] Interpretation and review of laboratory resultsAbnormalUMercy Health Perrysburg HospitalActivated partial thromboplastin time (aPTT) in platelet poor plasma by coagulation aOrdered By: Abby Jensen on 21-07-6411rECG Coag (PPP) [Time]33.6 s25.1-36.5FAdena Health System Comment on above:A hematocrit value greater than 55% may lead to inaccurate results in coagulation testing. Patientshaving hematocrit values >55% require a special collection tube for coagulation studies. Please contact the laboratory at [phone] for redraw instructions.Bacterial blood cultureOrdered By: Abby Jensen on 82-64-3384Gmnjexpk identified Cx Nom (Bld)NO GROWTH 5 DAYS [facility] CenterBasophils Auto (Bld) [#/Vol]Ordered By: Abby Jensen on 65-30-5808Saemqswsn (Bld) [#/Vol]0.0 10*3/uL0.0-0.2FAdena Health SystemBasophils/100 WBC Auto (Bld)Ordered By: Abby Jensen on 53-22-0435Ihcyqvpfg/100 WBC (Bld)0.4 %.[facility] Bilirubin Test strip Ql (U)Ordered By: Abby Jensen on 75-03-3842Ijoetrtgo Ql (U)NegativeNegativeCrystal Clinic Orthopedic CenterC reactive protein [Mass/volume] in Serum or PlasmaOrdered By: Abby Jensen on 72-38-6171RYD [Mass/Vol]1.0 mg/dLHigh0.0-0.5FAdena Health SystemC-reactive proteinon 00-52-3180LUP [Mass/Vol]0.98 mg/dLNINF - 1.00 mg/dLUnWood County HospitalCBC panel Auto (Bld)on 29-87-2941Uvuzvtvklps distribution width (RBC) [Ratio]12.4 %11.5 - 14.5 %[facility] Hematocrit (Bld) [Volume fraction]36.3 %36.0 - 46.0 %[facility] HospitalHemoglobin (Bld) [Mass/Vol]12.5 g/dL12.0 - 16.0 g/dLUnMercy Health St. Joseph Warren HospitalH (RBC) [Entitic mass]30.4 pg26.0 - 34.[address] Joseph Warren HospitalHC (RBC) [Mass/Vol]34.4 g/dL32.0 - 36.0 g/dLUnMercy Health St. Joseph Warren HospitalV (RBC) [Entitic vol]88 fL80 - 100 fLUniShelby Memorial HospitalNucleated RBC/100 WBC (Bld) [Ratio]0.0 %[facility] HospitalPlatelets (Bld) [#/Vol]422 10*3/uLUniversity Hospitals of ClevelandRB ([facility]) [#/Vol]4.11 10*6/[facility]ers HospitalW (d) [#/Vol]10.1 10*3/[facility]ers HospitalCalcium [Mass/volume] in Serum or PlasmaOrdered By: Abby Jensen on 90-19-6186Hhqgmvw [Mass/Vol]8.8 mg/dL8.6-10.3FAdena Health SystemCarbon dioxide, total [Moles/volume] in Serum or PlasmaOrdered By: Abby Jensen on 12-72-5595YT1 [Moles/Vol]26.0 mmol/L21.0-31.0[facility] CenterChloride [Moles/volume] in Serum or PlasmaOrdered By: Abby Jensen on 10-05-2023 Chloride [Moles/Vol]105 mmol/O93-606HeocpnvlfCrystal Clinic Orthopedic CenterColor Auto (U)Ordered By: Abby Jensen on 51-48-7941Jslva (U)Light-yellowYellowCrystal Clinic Orthopedic CenterCreatine kinase [Enzymatic activity/volume] in Serum or PlasmaOrdered By: Abby Jensen on 46-25-9799OG [Catalytic activity/Vol]49 U/L 30-223[facility] CenterCreatinine [Mass/volume] in Serum or PlasmaOrdered By: Abby Jensen on 59-17-0487Dpxgptjskv [Mass/Vol]0.75 mg/dL 0.60-1.20[facility] Clinical Summaryon [id number] [facility] [address] [place] [address] ED Clinical Summary PERSON INFORMATION Name: JERAD TRACY Age: 48 Years Sex: FEMALE : 1975 MRN: Acct#: Visit Reason: Post surgical problem; SKIN PROBLEM-BACK Arrival: 10/05/2023 11:20:01 Discharge: 10/05/2023 12:04:00 LOS: 000 00:44 Check In: 10/05/2023 11:20:01 Checkout:10/05/2023 12:04:00 Address: [address] [place], [place] [id number] PCP: Mayra Mckeon PROVIDER INFORMATION Provider Role Assigned Unassigned Susu Lamar PA-C ED PA 10/05/2023 11:21:33 Niki Reyes FIELD SERVICER Nurse 10/05/2023 11:33:03 VITALS INFORMATION Vital Sign Triage Latest Temperature Tympanic Temperature Temporal Artery Pulse Rate O2 Sat 97 % 97 % Respiratory Rate 16 br/min 16 br/min Blood Pressure /65 mmHg /65 mmHg MEDICAL INFORMATION Medications Given: Allergy Information: HYDROcodone; penicillin PHYSICIAN DOCUMENTATION DISCHARGE INFORMATION: Discharge Disposition: Home Discharge Location: Home PATIENT EDUCATION INFORMATION Instructions: Wound Dehiscence, Pbik-md-Zrul Follow-Up: With: Address: When: [facility] wound care [address] [place] [phone] Within 3 to 5 days Comments: Call for follow up appointment With: Address: When: Mayra Mckeon [address] [place] [address] Within 3 to 5 days Comments: keep appt with surgeon in 3 days DIAGNOSIS: 1:Dehiscence of incision Patient Understands: Yes - Patient/family/caregiver verbalizes understanding of instructions given Comment:[facility] CenterED Note-Physicianon 49-95-1469VT Note-Physician Newark HospitalComment on above:Result Comment: Electronically Signed By: Landon Tidwell PA-C\.br\Date and Time Signed: 10/03/2416:18 EDT\.br\Electronically Co-Signed By: Jorge Mcintosh DO\.br\Date and Time Co- Signed: 10/05/23 07:28 EDTED Patient Summaryon [id number] Patient Summary [facility] - [facility] Department [address] [place] [address] PATIENT DISCHARGE INSTRUCTIONS Patient Information Name: JERAD TRACY Age: 48 Years Date of : 1975 Reason For Visit: Post surgical problem; SKIN PROBLEM-BACK Arrival Time: 10/05/2023 11:20:01 Primary Care Physician: Mayra Mckeon Attending Physician: Raj Ayers MD Comment: Visit Diagnosis: Diagnoses This Visit Dehiscence of incision (T81.31XA) Post surgical problem ([id number]) The Pharmacy at [facility] is open Saturday through Saturday from 9A to 6P and Saturday and Saturday from 9A to 5P Prescription Information: If you have been given a prescription for narcotics, seek immediate medical attention if you have any difficulty breathing or any sudden status changes such as confusion andsleepiness. If you or anyone you know is experiencing suicidal thoughts, mental health, alcohol and/or drug addiction problems; contact the [facility] 15/10 Crisis Hotline -Text 3WLMV jn 833657. If you received any narcotics, sedation, or [...] sign any legal documents With: Address: When: [facility] wound care [address] [place] [phone] Within 3 to 5 days Comments: Call for follow up appointment With: Address: When: Mayra Mckeon [address] [place] [address] [place] [address] Within 3 to 5 days Comments: keep appt with surgeon in 3 days Medication Information: The exam and treatment you received today in the [facility] Emergency Department were for an urgent problem and are not intended as complete care. It is important for you to follow up with a doctor, nurse practitioner, or physician?s construction assistant for ongoing care. If your symptoms become worse or you donot improve as expected and you are unable [...] so we can reach you if necessary. [facility] Emergency Department has provided you with a complete list of medications post discharge. Please inform your project control officer/provider of your visit and for further instruction on these medications. Any specific questions regarding your chronic medications and dosages should be discussed with your primary care physician(s) and/or pharmacist. New Medications [facility] [address], [address], [place] [phone], [phone] doxycycline (doxycycline hyclate 100 mg oral capsule) [...] are the causes? C (more content not included)...NormalMagruder HospitalEosinophils Auto (Bld) [#/Vol]Ordered By: Abby Jensen on 60-38-0763Pxvlbfxleln (Bld) [#/Vol]0.1 10*3/uL0.0-0.45[facility] CenterEosinophils/100 WBC Auto (Bld) Ordered By: Abby Jensen on 20-12-9059Jabxavosebh/100 WBC (Bld)1.0 %.[facility] CenterErythrocyte distribution width Auto (RBC) [Ratio]Ordered By: Abby Jensen on 34-93-8651Doxpsnpwlep distribution width (RBC) [Ratio] 13.2 %11.9-15.3FAdena Health SystemErythrocyte sedimentation rate by Photometric methodOrdered By: Abby Jensen on 93-70-3466YOL Photometric method (Bld) [Velocity]58 mm/hrHigh0-19[facility] CenterGlucose [Mass/volume] in Serum or PlasmaOrdered By: Abby Jensen on 98-83-4375Imulite [Mass/Vol]95 mg/uE42-553SeqjvqxnrCrystal Clinic Orthopedic CenterComment on above:ADA recommended reference rangeRandom Glucose Reference Range is dependent on time and content of last meal. Glucose of more than 200 mg/dL in a nonstressed, ambulatory subject supports the diagnosisof Diabetes Mellitus.Glucose [Mass/volume] in Urine by Test stripOrdered By: Abby Jensen on 10-05-2023 Glucose Test strip (U) [Mass/Vol]Normal mg/dLNormalCrystal Clinic Orthopedic CenterHematocrit Auto (Bld) [Volume fraction]Ordered By: Abby Jensen on 24-14-0937Srcygtwsnb (Bld) [Volume fraction]40.4 %34.0-46.4FAdena Health SystemHemoglobin Test strip Ql (U)Ordered By: Abby Jensen on 69-72-4456Gjmyreryyr Ql (U)NegativeNegativeCrystal Clinic Orthopedic Center Hemoglobin [Mass/volume] in BloodOrdered By: Abby Jensen on 10-05-2023 Hemoglobin (Bld) [Mass/Vol]13.7 g/dL11.8-15.4FAdena Health System INR in Platelet poor plasma by Coagulation assayOrdered By: Abby Jensen on 92-11-0954RRB Coag (PPP) [Relative time]1.0 {INR}[facility] CenterComment on above:INR Therapeutic Range A) Pre- and Peroperative OAT started two weeks before surgery. NOT HIP SURGERY: 1.5 - 2.5 HIP SURGERY: 2 - 3B) Primary and secondary prevention of venous THROMBOSIS: 2 - 3C) Active venous thrombosis, pulmonary embolismand prevention of recurrent venous thrombosis: 2 - 3D) Prevention of arterial thromboembolismincluding patients with mechanical heart valves: 3 - 4.5Ketones Test strip Ql (U)Ordered By: Abby Jensen on 36-88-0379Kvbdcnu Ql (U)NegativeNegRiverview Health InstituteLactate [Moles/volume] in Serum or PlasmaOrdered By: Abby Jensen on 51-74-2975Yrsjyej [Moles/Vol]0.6 mmol/L0.5-2.2FAdena Health SystemLeukocyte esterase [Presence] in Urine by Test stripOrdered By: Abby Jensen on 10-05-2023 Leukocyte esterase Test strip Ql (U)NegativeNegRiverview Health InstituteLeukocytes [#/volume] corrected for nucleated erythrocytes in Blood by Automated counOrdered By: Abby Jensen on 74-76-4877SVE corrected for nucl RBC Auto (Bld) [#/Vol]12.3 10*3/uLHigh3.8-11.6FAdena Health System Lymphocytes Auto (Bld) [#/Vol]Ordered By: Abby Jensen on 10-05-2023 Lymphocytes (Bld) [#/Vol]2.1 10*3/uL1.00-4.8[facility] Lymphocytes/100 WBC Auto (Bld)Ordered By: Abby Jensen on 10-05-2023 Lymphocytes/100 WBC (Bld)16.8 %.[facility] Auto (RBC) [Entitic mass]Ordered By: Abby Jensen on 39-96-6021RMA (RBC) [Entitic mass] 31.8 pg24.7-34.3FMercy Health West HospitalHC Auto (RBC) [Mass/Vol] Ordered By: Abby Jensen on 96-44-9338IQJF (RBC) [Mass/Vol]33.9 g/dL32.0-35.0 [facility] CenterMCV Auto (RBC) [Entitic vol]Ordered By: Abby Jensen on 91-53-5428APA (RBC) [Entitic vol]93.6 yE28-473YrekkyjfvCrystal Clinic Orthopedic CenterMonocyte distribution width [Entitic volume] in Blood by Automated Ordered By: Abby Jensen on 62-65-5988Bappfuph distribution width Auto (Bld) [Entitic vol]16.83 %0.00-20.00[facility] CenterMonocytes Auto (Bld) [#/Vol]Ordered By: Abby Jensen on 99-80-6990Kitsgawlp (Bld) [#/Vol]0.7 10*3/uL0.0-0.8[facility] CenterMonocytes/100 WBC Auto (Bld) Ordered By: Abby Jensen on 03-54-8411Nwhpggxwx/100 WBC (Bld)6.1 %.[facility] CenterNatriuretic peptide B [Mass/Vol]Ordered By: Abby Jensen on 85-60-3563Vgqupkneobj peptide B (Bld) [Mass/Vol]70.0 pg/mL5-100 [facility] CenterNeutrophils Auto (Bld) [#/Vol]Ordered By: Abby Jensen on 23-43-4598Fyldsgaakry (Bld) [#/Vol]9.3 10*3/uLHigh1.8-7.7 [facility] CenterNeutrophils/100 WBC Auto (Bld)Ordered By: Abby Jensen on 25-98-5675Qspojkyubud/100 WBC (Bld)75.7 %.[facility] CenterNitrite Test strip Ql (U)Ordered By: Abby Jensen on 10-05-2023 Nitrite Ql (U)NegativeNegativeCrystal Clinic Orthopedic CenterNo Panel Informationon 23-98-7759Vasaysbcrvjgdp and review of laboratory resultsNoMercy Health St. Vincent Medical CenterInterpretation and review of laboratory resultsNormalUniProMedica Flower HospitalNo Panel InformationOrdered By: Abby Jensen on 96-82-1268Mahvxgtxu GFR (CKD-EPI)> 60.0 mL/MinCrystal Clinic Orthopedic CenterPharmacy Creatinine Clearance (Csjs828.62[facility] Nucleated erythrocytes [Presence] in Blood by Automated countOrdered By: Abby Jensen on 10-31-8340Cxxjtjfsn RBC Auto Ql (Bld)0.1 /100{WBC}0-0.5FAdena Health SystemPT and aPTT panel Coag (PPP)on 99-85-0043lVBS Coag (PPP) [Time]33 [facility] CenterINR Coag (PPP) [Relative time]1.0 {INR}0.9 - 1.1[facility] HospitalPT Coag (PPP) [Time]11.3 s [facility] HospitalThe APTT is no longer used for monitoring Unfractionated Heparin Therapy. For monitoring Heparin Therapy, use the Heparin Assay.[facility] HospitalPlatelet mean volume Auto (Bld) [Entitic vol]Ordered By: Abby Jensen on 22-04-5256Glvmdjxi mean volume (Bld) [Entitic vol]7.5 fL6.3-10.7FAdena Health SystemPlatelets Auto (Bld) [#/Vol] Ordered By: Abby Jensen on 07-22-0794Mawysuekt (Bld) [#/Vol]464 10*3/uLHigh 150-450[facility] CenterPotassium [Moles/volume] in Serum or PlasmaOrdered By: Abby Jensen on 38-48-9496Efdubziyg [Moles/Vol]4.0 mmol/L 3.5-5.1FAdena Health SystemProtein Test strip (U) [Mass/Vol]Ordered By: Abby Jensen on 99-77-6200Corwjip (U) [Mass/Vol]NegativeNegativeCrystal Clinic Orthopedic CenterProthrombin time (PT)Ordered By: Abby Jensen on 88-52-2369QS Coag (PPP) [Time]12.0 s9.0-12.9[facility] Comment on above:A hematocrit value greater than 55% may lead to inaccurate results in coagulation testing. Patientshaving hematocrit values >55% require a special collection tube for coagulation studies. Please contact the laboratory at [phone] for redraw instructions.RBC Auto (Bld) [#/Vol]Ordered By: Abby Jensen on 56-31-3952KPM (Bld) [#/Vol]4.32 10*6/uL3.60-5.00[facility] CenterRenal function 2000 panelon 36-14-6131Avwpyqn BCP dye [Mass/Vol] 3.9 g/dL3.4 - 5.0 g/dLUnWood County HospitalAnion gap [Moles/Vol]13 mmol/L10 - 20 mmol/[facility] HospitalCalcium [Mass/Vol]8.6 mg/dL 8.6 - 10.6 mg/dLUnWood County HospitalChloride [Moles/Vol]105 mmol/L 98 - 107 mmol/[facility] HospitalCO2 [Moles/Vol]24 mmol/L21 - 32 mmol/[facility] HospitalCreatinine [Mass/Vol]0.68 mg/dL0.50 - 1.05 mg/dLUnWood County HospitaleG- Kettering Health Main CampusComment on above:Calculations of estimated GFR are performed using the 2020 CKD-EPI Study Refit equation without therace variable for the IDMS- Traceable creatinine methods. https://jasn.asnjournals.org/content//ASN.6840892516 Glucose [Mass/Vol]94 mg/dL74 - 99 mg/dLUnWood County Hospital Phosphate [Mass/Vol]2.8 mg/dL2.5 - 4.9 mg/dLUnWood County Hospital Comment on above:The performance characteristics of phosphorus testing in heparinized plasma have been validated by the individual laboratory site where testing is performed. Testing on heparinized plasma is not approved by the FDA; however, such approval is not necessary.Potassium [Moles/Vol]3.9 mmol/L3.5 - 5.3 mmol/[facility] HospitalSodium [Moles/Vol]138 mmol/L136 - 145 mmol/[facility] HospitalUrea nitrogen [Mass/Vol]10 mg/dL6 - 23 mg/dLUnWood County HospitalSerum or plasma anion gap determination Ordered By: Abby Jensen on 73-02-4349Jbota gap [Moles/Vol]11.0 mmol/L6.0-15.0 [facility] Health Hamiltonodium [Moles/volume] in Serum or PlasmaOrdered By: Abby Jensen on 64-40-8740Pmggro [Moles/Vol]138 mmol/U136-250DmuojqrgaKettering Health Hamiltonpecific gravity Test strip (U) [Rel density]Ordered By: Abby Jensen on 78-66-0209Ilbjmcaz gravity (U) [Rel density]1.0181.001-1.030 [facility] CenterTroponin I.cardiac [Mass/volume] in Serum or Plasma by Detection limit <= 0.01 ng/Ordered By: Abby Jensen on 10-05-2023 Troponin I.cardiac DL <= 0.01 ng/mL [Mass/Vol]2.6 pg/mL0.0-15.0[facility] CenterUrea nitrogen [Mass/volume] in Serum or PlasmaOrdered By: Abby Jensen on 22-80-2833Xemm nitrogen [Mass/Vol]12 mg/dL7-25[facility] CenterUrine appearanceOrdered By: Abby Jensen on 10-05-2023 Appearance (U)ClearClearFAdena Health SystemUrine culture routine Ordered By: Abby Jensen on 47-54-0404Mmbodttg identified Cx Nom (U)2 Days [facility]opedic CenterUrobilinogen Test strip (U) [Mass/Vol]Ordered By: Abby Jensen on 76-91-7547Akbczrgnbydh (U) [Mass/Vol]Normal mg/dLNormal [facility] CenterWBC Auto (Bld) [#/Vol]Ordered By: Abby Jensen on 40-27-4326XPR (Bld) [#/Vol]12.3 10*3/uLHigh3.8-11.6FAdena Health SystempH Test strip (U)Ordered By: Abby Jensen on 20-75-8068bB (U) 7.5 [pH]5.0-9.0[facility] Clinical Summaryon 10-04-2023 ED Clinical SummaryNormalOhiohealth Van Wert Hospital Medical [facility] Patient Education Noteon 34-86-0649ON Patient Education NoteNormalOhiohealth Van Wert Hospital Medical CenterED Patient Summaryon 45-12-6979ZX Patient SummaryNormCity of Hope National Medical Centerus [facility] Clinical Summaryon 50-93-2659TH Clinical SummaryPrem[facility] [address] [place] [address] [id number] ED Clinical Summary PERSON INFORMATION Name: JERAD TRACY Age: 48 Years Sex: FEMALE : 1975 MRN: Acct#: Visit Reason: Surgical problem reevaluation; SKIN PROBLEM-BACK Arrival: 09/26/2023 11:09:47 Discharge: 09/26/2023 12:04:00 LOS: 000 00:55 Check In: 09/26/2023 11:09:47 Checkout:09/26/2023 12:04:00 Address: [address] [place] [address] PCP: Mayra Mckeon PROVIDER INFORMATION Provider Role Assigned Unassigned [...] MEDICAL INFORMATION Medications Given: Medication Dose Route sulfamethoxazole-trimethoprim (Bactrim DS 800 mg-160 mg oral tablet) 1 tab(s) Oral acetaminophen-oxycodone (acetaminophen-oxycodone 325 mg-5 mg oral tablet) 1 tab(s) Oral cephalexin 1000 mg Oral Allergy Information: HYDROcodone; penicillin PHYSICIAN DOCUMENTATION DISCHARGE INFORMATION: Discharge Disposition: Home Discharge Location: Home PATIENT EDUCATION INFORMATION Instructions: Pain Medicine Instructions, Lwvt-ss-Tdbt; Wound Infection, Lzko-xb-Bbdb; Acute Pain, Adult Follow-Up: With: Address: When: [...] symptom that concerns you. With: Address: When: Mayra Rosas [address] [place] [address] [place] [address] Business (1) Within 3 to 5 days DIAGNOSIS: Acute post-operative pain; Infected surgical wound Patient Understands: Yes - Patient/family/caregiver verbalizes understanding of instructions given Comment:[facility] CenterED Note - Physicianon 90-82-6418DH Note - PhysicianPatient: JERAD TRACY Age: 48 years Sex: FEMALE [...] a electro stimulator placed. 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 . History of Present Illness The patient presents with wound infection. The onset was 2 days ago. 48-year-old female presented to ER for evaluation of pain at the lower back area. Patient stated that she had a stimulator placed on Saturday. Stated that it was done at [facility]. Stated that she had been prescribed [...] been prescribed Bactrim and Keflex at the [facility] in [facility]. Apparently was called in yesterday. She only [...] oxyCODONE 5 mg oral tablet: 0 Refill(s) sulfamethoxazole-trimethoprim 800 mg-160 mg oral tablet: 0 Refill(s). [...] (Order): 1,000 mg, Or (more content not included)...[facility] CenterED Patient Summaryon 98-75-3023QO [facility] [address] [id number] PATIENT DISCHARGE INSTRUCTIONS Patient Information Name: JERAD TRACY Age: 48 Years Date of : 1975 Reason For Visit: Surgical problem reevaluation; SKIN PROBLEM-BACK Arrival Time: 09/26/2023 11:09:47 Primary Care Physician: Mayra Mckeon Attending Physician: Daryl Cullen MD Comment: Visit Diagnosis: Diagnoses This Visit Acute post-operative pain (G89.18) Infected surgical wound (T81.49XA) Surgical problem reevaluation ([id number]) The Pharmacy at [facility] is open Saturday through Saturday from 9A to 6P and Saturday and Saturday from 9A to 5P Prescription Information: If you have been given a prescription for narcotics, seek immediate medical attention if you have any difficulty breathing or any sudden status changes such as confusion andsleepiness. If you or anyone you know is experiencing suicidal thoughts, mental health, alcohol and/or drug addiction problems; contact the [facility] 15/10 Crisis Hotline -Text 9HTAI fk [phone]. If you received any narcotics, sedation, or [...] symptom that concerns you. With: Address: When: Mayra Rosas [address] [place] [address], [address] [place] [phone] Business (1) Within 3 to 5 days Medication Information: The exam and treatment you received today in the [facility] Emergency Department were for an urgent problem and are not intended as complete care. It is important for you to follow up with a doctor, nurse practitioner, or physician?s construction assistant for ongoing care. If your symptoms become worse or you donot improve as expected and you are unable [...] so we can reach you if necessary. [facility] Emergency Department has provided you with a complete list of medications post discharge. Please inform your project control officer/provider of your visit and for further instruction on these medications. Any specific questions regarding your chronic medications and dosages should be discussed with your primary care physician(s) and/or pharmacist. New Medications [facility] [address], [address], [place] [phone], [phone] acetaminophen-oxycodone (acetaminophen-oxycodone 325 mg-5 mg oral tablet) [...] day. oxyCODONE (oxyCODONE 5 mg oral tablet) sulfamethoxazole-trimethoprim (sulfamethoxazole-trimethoprim 800 mg-160 mg oral tablet) Visit Information [...] 113.40 kg Weight Dosin.40 (more content not included)...[facility] Spine Lumbar w/o Contraston 63-78-1230MQ Spine Lumbar w/o ContrastNoCincinnati Shriners Hospital Clinical Summaryon 58-07-3939BM Clinical SummaryNormal [facility] Note-Physicianon 75-54-9540QT Note-PhysicianMccullough-Hyde Memorial HospitalComment on above:Result Comment: Electronically Signed By: Landon Tidwell PA-C\.br\Date and Time Signed: 09/24/2414:17 EDT\.br\Electronically Co-Signed By: Balbina Bryant M.D.\.br\Date and Time Co-Signed: 09/25/23 15:18 EDTED Patient Education Noteon 46-15-9088ZF Patient Education NoteNoCincinnati Shriners Hospital Patient Summaryon 37-38-3155QI Patient SummaryNoProMedica Defiance Regional HospitalXR tomography Unspecified body regionon 14-05-3859Ycbtm images are not reportable by radiology and will not be interpreted by Radiologists.IMAGINGED Clinical Summaryon 15-62-5748AT Clinical Summary [facility] CenterED Note-Physicianon 16-43-4796PZ Note-Physician [facility] HospitalComment on above:Result Comment: Electronically Signed By: Kristie Boss PA-C\.br\Date and Time Signed: 09/21/23 15:14 EDT\.br\Electronically Co-Signed By: Nikhil Tubbs DO\.br\Date and Time Co- Signed: 09/21/23 15:21 EDTED Patient Education Noteon 20-55-1722MX Patient Education NoteNoTriHealth CenterED Patient Summaryon 42-06-7614LJ Patient SummaryNoTriHealth CenterED Clinical Summaryon 68-91-6291YZ Clinical SummaryNoCincinnati Shriners Hospital Note-Physician on 87-53-0052EW Note-PhysicianNewark HospitalComment on above: Result Comment: Electronically Signed By: Robert Taylor PA-C\.br\Date and Time Signed: 09/19/2410:16 EDT\.br\Electronically Co-Signed By: Jorge Mcintosh DO\.br\Date and Time Co-Signed: 09/20/23 18:45 EDTED Patient Education Noteon 37-39-1418DW Patient Education NoteAdena [facility] Patient Summaryon 53-17-0240CO Patient SummaryNoProMedica Defiance Regional HospitalXR Sacrum and Coccyx 2 Viewson 27-45-1237Eu evidence of acute displaced sacral or coccygeal fracture. MACRO: None. Signed by: Susie Brennan 09/19/2023 1:41 PM Dictation workstation: [id number] MMODALInterpreted By: Susie Brennan, STUDY: XR SACRUM COCCYX 2+ VIEWS; 09/19/2023 1:13 pm INDICATION: Signs/Symptoms:fall. COMPARISON: None. ACCESSION NUMBER(S): [id number] ORDERING CLINICIAN: GERMAINE LLOYD FINDINGS: Three views of the sacrum/coccyx obtained. No focal disruption of the sacral or coccygeal contours to suggest acute displaced fracture. Sacral neural arches are grossly intact and symmetric. SI joints are grossly symmetric. Presumed tubal ligation clips overlying the upper pelvis. [facility] MMODALSusie Brennan MD - 09/19/2023 Interpreted By: Susie Brennan, STUDY: XR SACRUM COCCYX 2+ VIEWS; 09/19/2023 1:13 pm INDICATION: Signs/Symptoms:fall. COMPARISON: None. ACCESSION NUMBER(S): [id number] ORDERING CLINICIAN: GERMAINE LLOYD FINDINGS: Three views [...] Susie Brennan 09/19/2023 1:41 PM Dictation workstation: [id number] [facility] Work Phone: Radiology Study observation (narrative)[facility] Work Phone: XR Sacrum and Coccyx 2 ViewsOrdered By: Susie Brennan on 30-71-6561WnbnyuqrvlWood [facility] Work Phone: [facility] Medicine Office/Clinic Noteon 61-16-7202Eobylh Medicine Office/Clinic NoteNoProMedica Defiance Regional HospitalComment on above: Result Comment: Electronically Signed By: Pankaj MILES, Dax Salguero\.br\Date and Time Signed: 09/16/2417:07 EDTPatient Educationon 77-78-3567Nohpqhv Education [facility] HospitalXR Elbow - right 3 Viewson 62-43-0506Ot acute bony abnormalities. Signed by Johan Connor MD TELERADIOLOGYSTUDY: Elbow Radiographs; 09/16/2023 4:48 PM INDICATION: Injury to the right elbow. COMPARISON: None Available. ACCESSION NUMBER(S): [id number] ORDERING CLINICIAN: GERMAINE BLAIR TECHNIQUE: Five view(s) of the right elbow. FINDINGS: There is no displaced fracture. The alignment is anatomic. No soft tissue abnormality is seen. There is no joint effusion. TELERADIOLOGYBeJohan justice MD - 09/16/2023 STUDY: Elbow Radiographs; 09/16/2023 4:48 PM INDICATION: Injury to the right elbow. COMPARISON: None Available. ACCESSION NUMBER(S): [id number] ORDERING CLINICIAN: GERMAINE BLAIR TECHNIQUE: Five view(s) of the right elbow. FINDINGS: There is no displaced fracture. The alignment is anatomic. No soft tissue abnormality is seen. There is no joint effusion. IMPRESSION: No acute bony abnormalities. Signed by Johan Connor MD [facility] Work Phone: Radiology Study observation (narrative)[facility] Work Phone: XR Elbow - right 3 ViewsOrdered By: Johan Connor on 62-71-6001EunsxoovdmWood County Hospital Work Phone: Coding Summary.on 19-10-4971Espnve Summary.Normal [facility] HospitalProvider Letteron 49-41-3984Nilehxgg LetterNormal [facility] HospitalDischarge Instructionson 87-82-4922Rvcxdebuh [id number]#1.00TIFWyandot Memorial HospitalMRI Spine Lumbar w/o Contraston 54-33-7162ZLW Spine Lumbar w/o ContrastNoProMedica Defiance Regional HospitalRAD - Preliminary Cat Scan Reporton 24-32-4321UIF - Preliminary Cat Scan Report [id number]#1.00TIFWyandot Memorial HospitalConsent for Treatmenton 90-36-5789Onszuoj for Treatment [id number]#1.00TIFAultman Orrville Hospital CenterED Clinical Summaryon 62-73-5762HZ Clinical SummaryNormBlanchard Valley Health System [facility] Hospital CenterED Note-Physicianon 57-34-2437TG Note-PhysicianNoProMedica Defiance Regional HospitalComment on above:Result Comment: Electronically Signed By: Landon Tidwell PA-C\.br\Date and Time Signed: 09/08/2422:52 EDT\.br\Electronically Co-Signed By: Elisa Sánchez DO\.br\Date and Time Co- Signed: 09/09/23 23:54 EDTED Patient Education Noteon 77-51-7752OA Patient Education NoteNo[facility] Patient Summaryon 37-03-6928DE Patient SummaryNewark HospitalRAD - MRI Screening Formon 39-43-1123GAI - MRI Screening Form [id number]#1.00TIFMercy Health Allen Hospital Clinical Summaryon 03-99-1892CJ Clinical SummaryNoC[facility] Note-Physicianon 76-48-6743BV Note-PhysicianNewark HospitalComment on above:Result Comment: Electronically Signed By: Zhane Castro PA-C\.br\Date and Time Signed: 09/07/2399:11 EDT\.br\Electronically Co-Signed By: Pedro Pablo Fletcher DO\.br\Date and Time Co-Signed: 09/07/23 01:06 EDTED Patient Education Noteon 23-22-8222SY Patient Education NoteAdena [facility] Patient Summaryon 80-28-2071EZ Patient SummaryNormmague [facility] HospitalConsent for Treatmenton 33-10-5970Pfvjmmj for Tueqo[id number]#1.00TIFWyandot Memorial HospitalConsent for Treatmenton 57-84-0597Oltjjxl for Treatment [id number]#1.00[place] [facility] HospitalDischarge Instructionson 58-94-5169Pojpbyqda Instructions [id number]#1.00TIFMercy Health Allen Hospital Clinical Summaryon 19-49-6897RM Clinical SummaryNoTriHealth CenterED Note-Physicianon 15-06-4758RR Note-PhysicianNewark HospitalComment on above:Result Comment: Electronically Signed By: Jorge Mcintosh DO\.br\Date and Time Signed: 09/02/23 18:33EDTED Patient Education Noteon 55-72-4690WH Patient Education NoteNoMineral [facility] Medical CenterED Patient Summaryon 98-34-9391VO Patient SummaryNoProMedica Defiance Regional HospitalProgress Note-Nurseon 33-58-6407Lkjjlyfy Note-Nurseleft with [facility] HospitalConsent for Treatmenton 00-85-4375Qbvnfys for Treatment [id number]#1.00TIFWyandot Memorial HospitalDischarge Instructionson 67-24-8297Dfygnesbf Instructions [id number]#1.00TIFFAdena Fayette Medical Center Clinical Summaryon 95-75-1250YK Clinical SummaryNoC[facility] Note-Nursingon 41-19-9213MG Note-Nursingpt states she is being driven home by her who is at bedsideNoCincinnati Sh[facility]ers Hospital Note-Physicianon 84-98-7013SR Note-PhysicianNewark Hospital Comment on above:Result Comment: Electronically Signed By: April Krueger PA-C.br\Date and Time Signed: 08/30/23 19:02 EDT\.br\Electronically Co-Signed By: Nikhil Tubbs DO.br\Date and Time Co-Signed: 08/30/23 19:48 EDTED Patient Education Noteon 99-04-0422GR Patient Education NoteNoMineral [facility] Medical CenterED Patient Summaryon 85-18-0779LH Patient SummaryNoProMedica Defiance Regional HospitalCoding Summaryon 71-38-0852Fxotgd SummaryHTMLBase 64 IvjfjvhfTTh8fRm+PGhlYWQ+FG1NDFVrJ28qmAKyoV1zZ6FJVTuCMrpqRGYGFZwAQgLyfzTbFU2cqBFq ZXJu [file] LWN (more content not included)...[facility] Medical CenterVerify ABO/Rh Group Test (VERAB)on 09-96-8355ZYX group Nom (Bld)[facility] Medical CenterD Ag Ql (Bld)[facility] HospitalXR tomography Unspecified body regionon 52-58-5490Hryiu images are not reportable by radiology and will not be interpreted by Radiologists.IMAGINGED Clinical Summaryon 42-73-5361XB Clinical Summary [facility] Emergency Department [address] [place] [address] ED Clinical Summary PERSON INFORMATION Name: JERAD TRACY Age: 48 Years Sex: FEMALE : 1975 MRN: Acct#: Visit Reason: Back pain; FELL , LOWER BACK PAIN Arrival: 08/17/2023 15:31:41 Discharge: 08/17/2023 17:29:00 LOS: 000 01:58 Check In: 08/17/2023 15:31:41 Checkout:08/17/2023 17:29:00 Address: [address] [place] [address] PCP: Mayra Mckeon PROVIDER INFORMATION Provider Role Assigned Unassigned Mora Avila DO ED Provider 08/17/2023 16:07:25 Gayla Miranda FIELD SERVICER Nurse 08/17/2023 16:08:50 VITALS INFORMATION Vital Sign [...] Associated Diagnoses: Acute lumbosacral myofascial strain Author: Mora Avila DO Basic Information Additional information: Chief Complaint from Nursing Triage Note : Chief Complaint 08/17/2023 16:01 EDT Chief Complaint Pt. C/O of back pain due to tripping over a hose. . History of Present Illness 48-year-old female to the emergency department chief complaint of low back pain. Patient states shehas a history of bulging and herniated disc at her L4-L5 area. Patient supposed to have surgery at [facility] next month. Patient tripped over a hose [...] the right paraspinal musculat (more content not included)...[facility] CenterED Note - Physicianon 08-17-2023 ED Note - PhysicianPatient: JERAD TRACY Age: 48 years Sex: FEMALE : 1975 Associated Diagnoses: Acute lumbosacral myofascial strain Author: Mora Avila DO Basic Information Additional information: Chief Complaint from Nursing Triage Note : Chief Complaint 08/17/2023 16:01 EDT Chief Complaint Pt. C/O of back pain due to tripping over a hose. . History of Present Illness 48-year-old female to the emergency department chief complaint of low back pain. Patient states shehas a history of bulging and herniated disc at her L4-L5 area. Patient supposed to have surgery at [facility] next month. Patient tripped over a hose [...] sacrum. Mostly tender to the right paraspinal musculaturein that area but no tenderness at sciatic [...] need for close (more content not included)... [facility] CenterED Patient Summaryon 28-92-8619WP Patient [facility] - Emergency Department [address] [place] [address] PATIENT DISCHARGE INSTRUCTIONS Patient Information Name: JERAD TRACY Age: 48 Years Date of : [address] [facility]: [id number] Reason For Visit: Back pain; FELL , LOWER BACK PAIN Arrival Time: 08/17/2023 15:31:41 Primary Care Physician: Mayra Mckeon Attending Physician: Mora Avila DO Comment: Visit Diagnosis: Diagnoses This Visit Acute lumbosacral myofascial strain (S39.012A) Back pain ([id number]) The Pharmacy at [facility] is open Saturday through Saturday from 9A to 6P and Saturday and Saturday from 9A to 5P Prescription Information: If you have been given a prescription for narcotics, seek immediate medical attention if you have any difficulty breathing or any sudden status changes such as confusion andsleepiness. If you or anyone you know is experiencing suicidal thoughts, mental health, alcohol and/or drug addiction problems; contact the [facility] 15/10 Crisis Hotline -Text 5QSUX gp 936219. If you received any narcotics, sedation, or [...] and treatment you received today in the [facility] Emergency Department were for an urgent problem and are not intended as complete care. It is important for you to follow up with a doctor, nurse practitioner, or physician?s construction assistant for ongoing care. If your symptoms become worse or you donot improve as expected and you are unable [...] so we can reach you if necessary. [facility] Emergency Department has provided you with a complete list of medications post discharge. Please inform your project control officer/provider of your visit and for further instruction on these medications. Any specific questions regarding your chronic medications and dosages should be discussed with your primary care physician(s) and/or pharmacist. New Medications Printed Prescriptions oxyCODONE (oxyCODONE 5 mg oral capsule) 1 cap(s) Oral (given by mouth) every 6 hours. as needed forpain. Refills: 0. Additional medications on your home [...] up with a treatme (more content not included)...Normal [facility] HospitalXR Spine Lumbosacral 2 or 3 Viewson 07-61-2110DE Spine Lumbosacral 2 or 3 ViewsIMAGES REVIEWED: XR Spine Lumbosacral 2 or 3 [...] Manuel Doll MD 08/17/23 5:42 pm Technologist: [facility]CT Head or Brain w/o Contraston 28-64-5107TM Head or Brain w/o ContrastNewark HospitalCT Spine Cervical w/o Contraston 81-85-9668VY Spine Cervical w/o ContrastNewark HospitalDischarge Instructionson 13-79-7692Hyvpvcwaa Instructions [id number]#1.00TIFMercy Health Allen Hospital Clinical Summaryon 17-30-7167DO Clinical SummaryNoC[facility] Note-Physicianon 70-83-5052YI Note-PhysicianNewark HospitalComment on above:Result Comment: Electronically Signed By: Balbina Bryant M.D.\.br\Date and Time Signed: 08/15/2402:58 EDTED Patient Education Noteon 42-06-1222YE Patient Education NoteAdena Fayette Medical Center Patient Summaryon 10-27-8989ME Patient SummaryNoPro[facility] RAD - Preliminary Cat Scan Reporton 20-94-1340PZX - Preliminary Cat Scan Report [id number]#1.00TIFWyandot Memorial HospitalRAD - Preliminary Cat Scan Report [id number]#1.00TIFWyandot Memorial HospitalWorkers Comp Formson 96-91-6034Kkopijg Comp Forms [id number]#1.00TIFFNewark HospitalXR Spine Lumbosacral 2 or 3 Viewson 47-13-5169ZO Spine Lumbosacral 2 or 3 ViewsNoProMedica Defiance Regional HospitalXR Spine Thoracic 3 Viewson 46-95-9593JQ Spine Thoracic 3 ViewsNoProMedica Defiance Regional HospitalConsent for Treatmenton 13-81-6963Yjajunv for Caedxskzm2[id number]#1.00TIFF Newark HospitalConsent for Treatmenton 86-24-5343Rhtgwpp for Mnbqmt[id number]#1.00TIFWyandot Memorial HospitalConsultation Noteon 28-88-1082Ynfhjmnzfofu NoteNewark HospitalComment on above:Result Comment: Electronically Signed By: Christos SLATER, Domenic Redbr\Date and Time Signed: 08/14/23 16:33 EDTOffice/Clinic Note-Physicianon 30-24-1927Vmhfix/Clinic Note-Physician [id number]#1.00TIFWyandot Memorial HospitalPatient Correspondenceon 67-58-6173Xblaljb Correspondence [id number]#1.00TIFWyandot Memorial HospitalPatient Sdtxknviut[id number]#1.00TIFF [facility] HospitalPatient History Officeon 71-34-7420Qqrgxia History Ewsuzw589.45.122.15.905281128854075278771672645#1.00TIFFNoProMedica Defiance Regional HospitalConsent for Treatmenton 73-17-2547Rzwaecg for Treatment [id number]#1.00TIFWyandot Memorial HospitalDischarge Instructionson 62-26-2243Xdflfdbmq Instructions [id number]#1.00TIFFAshtabula County Medical Center CenterED Clinical Summaryon 76-71-7142EP Clinical SummaryNormBlanchard Valley Health System [facility] CenterED Note-Nursingon 93-41-5898IJ Note-NursingThis nurse went to discharge patient and recheck vitals and patient has eloped from the department without her instructions.[facility] Note-Physicianon 77-09-3710TX Note-PhysicianNewark HospitalComment on above: Result Comment: Electronically Signed By: Elisa Sánchez DO\.br\Date and Time Signed: 08/12/23 22:53 EDTED Patient Education Noteon 34-57-1729HC Patient Education NoteNo[facility] Patient Summaryon 13-33-3582ZT Patient SummaryNoProMedica Defiance Regional HospitalConsent for Treatmenton 99-60-8441Khlkxmg for Cemccslup[id number]#1.00TIFF [facility] HospitalDischarge Instructionson 98-37-9476Ktbqwmxse Kbiesgifckya320.7[id number]#1.00TIFFAdena Fayette Medical Center Clinical Summaryon 86-10-0780VE Clinical SummaryNormal [facility] Note-Physicianon 45-28-6057PW Note-PhysicianNormCommunity Regional Medical CenterComment on above:Result Comment: Electronically Signed By: Landon Tidwell PA-C\.br\Date and Time Signed: 08/04/2420:19 EDT\.br\Electronically Co-Signed By: Pedro Pablo Fletcher DO\.br\Date and Time Co- Signed: 08/05/23 22:58 EDTED Patient Education Noteon 27-89-3537OF Patient Education NoteNo[facility] Patient Summaryon 92-67-3570DS Patient SummaryNoProMedica Defiance Regional HospitalCT Spine Lumbar w/o Contraston 11-23-5055DY Spine Lumbar w/o ContrastNoProMedica Defiance Regional HospitalConsent for Treatmenton 59-53-3088Osmafxz for Treatment 159.14[id number]#1.00TIFFNoProMedica Defiance Regional HospitalDischarge Instructionson 28-05-6516Fmcnfpyvw Instructions [id number]#1.00TIFFNormValley Presbyterian Hospital Medical CenterED Clinical Summaryon 15-05-6783GD Clinical SummaryNormValley Presbyterian Hospital Medical CenterED Note-Physicianon 43-66-1512KI Note-PhysicianNewark HospitalComment on above:Result Comment: Electronically Signed By: Landon Tidwell PA-C.br\Date and Time Signed: 08/01/2414:22 EDT\.br\Electronically Co-Signed By: Nikhil Tubbs DO.br\Date and Time Co- Signed: 08/01/2414:32 EDTED Patient Education Noteon 24-06-9915EM Patient Education NoteNormValley Presbyterian Hospital Medical CenterED Patient Summaryon 61-88-2937CV Patient SummaryNoProMedica Defiance Regional HospitalProgress Note-Nurseon 56-92-9935Ryfntvkx Note-NursePt leaves with ridSonaUniversity Hospitals Geauga Medical CenterConsen for Treatmenton 14-26-5186Zmrcrjv for Treatment 159.140.128.34.22988720009102889231X50IM#1.00TIFFBrandiProMedica Defiance Regional HospitalDischarge Instructionson 01-95-7310Ergxdmojr Instructions [id number]#1.00TIFFNoTriHealth CenterED Clinical Summaryon 80-30-9157KD Clinical SummaryNormValley Presbyterian Hospital Medical CenterED Note-Physicianon 90-85-5408JD Note-PhysicianNewark HospitalComment on above:Result Comment: Electronically Signed By: Landon Tidwell PA-C.br\Date and Time Signed: 07/30/2414:32 EDT\.br\Electronically Co-Signed By: Balbina Bryant M.D.\.br\Date and Time Co-Signed: 07/31/23 15:51 EDTED Patient Education Noteon 62-89-7967AT Patient Education NoteAshtabula County Medical Center CenterED Patient Summaryon 25-23-7705TO Patient SummaryNewark HospitalConsent To Leave AMAon 60-35-4568Wsitgxu To Leave [id number]#1.00TIFF [facility] HospitalConsent for Treatmenton 34-57-5975Lkwfuju for Inxhplfpd369.140.128.34.61518749398228596555X84Y2#1.00TIFWyandot Memorial HospitalDischarge Instructionson 45-13-5014Upnrrwygl Instructions [id number]#1.00TIFMercy Health Allen Hospital Clinical Summaryon 84-02-8303ZN Clinical SummaryNoTriHealth CenterED Note-Physicianon 58-04-9737VD Note-PhysicianNewark HospitalComment on above:Result Comment: Electronically Signed By: Jorge Mcintosh DO\.br\Date and Time Signed: 07/26/23 11:28EDTED Patient Education Noteon 02-09-9443JN Patient Education NoteNo[facility] Patient Summaryon 00-31-1264NL Patient SummaryNoPro[facility] Consultation Noteon 91-70-2289Obdimoonwyaa Note [id number]#1.00TIFWyandot Memorial HospitalConsultation [id number]#1.00TIFFMccullough-Hyde Memorial HospitalFatobey hospital Medicine Office/Clinic Noteon 78-01-7115Kqjzzn Medicine Office/Clinic [facility] DaytonComment on above: Result Comment: Electronically Signed By: Mayra Rincon\Date and Time Signed: 07/23/23 14:37 EDTPhysician Referralon 02-53-4440Bplqucnmv Referral [id number]#1.00TIFFNewark HospitalCT Abdomen/Pelvis w/o Contraston 48-52-6723ZZ Abdomen/Pelvis w/o Contrast [facility] Note-Physicianon 54-56-4258AF Note-Physician [facility] HospitalComment on above:Result Comment: Electronically Signed By: Balbina Bryant M.D..br\Date and Time Signed: 07/21/2403:24 EDTXR Chest Single Viewon 78-52-4510RP Chest Single ViewNoProMedica Defiance Regional HospitalBMPon 70-36-5097Aktll gap [Moles/Vol]10 mmol/LNormal6-16[facility] HospitalComment on above:Performed By: #### 4367106, 7956465, 81296924, 30748350, 96354818, 8617499, 43635089 ####[facility] [address] [place], [place] [address]Abfqsqa [Mass/Vol]8.2 mg/dLLow 8.9-11.1Fisher R [facility] Shock Trauma CenterComment on above:Performed By: #### 8309621, 8444037, 84308384, 41646561, 13997724, 8387344, 66718766 ####[facility] [address] [place], [place] [address]Mcrlkioj [Moles/Vol] 105 mmol/ILzptkz209-742CsbdwbOhiohealth Berger HospitalComment on above:Performed By: #### 9008340, 0730615, 31605355, 62168259, 21175211, 9552545, 88065770 ####[facility] [address] [place], [place] [address]NG8 [Moles/Vol]26 mmol/MKseonk04-81CiubwfOhiohealth Berger HospitalComment on above: Performed By: #### 6741737, 7669549, 77432420, 63177133, 44034472, 1302897, 22023092 ####[facility] [address] [place], [place] [address]Fsxqwvquqe [Mass/Vol]0.7 mg/dLNormal0.5-1.3FClermont County Hospital Comment on above:Performed By: #### 4201245, 0719079, 88833072, 15740771, 16634138, 1396565, 47788593 ####[facility] [address] [place], [place] [address]Edqgdmr [Mass/Vol]122 mg/gPGepkab84-899MhgsipOhiohealth Berger HospitalComment on above:Performed By: #### 4911047, 2520537, 11627761, 70832034, 54847937, 1768561, 51142765 ####[facility] [address] [place], [place] [address]Ljchiinxz [Moles/Vol]4.0 mmol/LNormal 3.5-5.3FClermont County HospitalComment on above:Performed By: #### 7465054, 5906053, 41486532, 83882230, 11160780, 1095945, 54392173 ####[facility] [address] [place], [place] [address]Otasav [Moles/Vol]137 mmol/JRixzpu356-321UelujhOhiohealth Berger HospitalComment on above:Performed By: #### 3742947, 6075075, 23688042, 31594891, 13823327, 3283236, 56508816 ####[facility] [address] [place], [place] [address]Pwvp nitrogen [Mass/Vol]17 mg/dLNormal5-21Ohio[facility] Berger HospitalComment on above:Performed By: #### 7286475, 7386650, 66107774, 83626890, 30697753, 1180130, 46946535 ####[facility] [address] [place], [place] [address]Fykd nitrogen/Creatinine [Mass ratio]24 No YzqmvFlqb54-63 [facility] HospitalComment on above:Performed By: #### 6672491, 1142802, 27079955, 07038429, 76088753, 8687337, 46775968 ####[facility] [address] [place], [place] [address]XQIws 78-56-2043Jevaywdsgzf peptide B (Bld) [Mass/Vol]25 pg/mLNormal5-80Ohio[facility] HospitalComment on above: Performed By: #### 4659302, 9369568, 65714439, 09536868, 30622108, 6704716, 66142514 ####[address] [address]MRR w/ Auto Diffon 95-72-2683Tngcydajt/100 WBC (Bld)0.4 %Normal0.0-2.0 [facility] HospitalComment on above:Performed By: #### 5467052, 0799310, 59821220, 36825414, 57924868, 4741215, 41819212 ####[facility] [address] [place] [address]Cjpamzdwm/Leukocytes Auto (Bld) [Pure # fraction]0.0 E9/LNormal0.0-0.2FClermont County HospitalComment on above:Performed By: #### 3464227, 7894784, 82370511, 39173840, 44558268, 4773153, 62031588 ####[address] [address]Iyfkyajvdep (Bld) [#/Vol]0.2 E9/LNormal0.0-0.5FClermont County HospitalComment on above:Performed By: #### 9620351, 8172769, 36402261, 78460522, 73664380, 0303273, 24130225 ####[address] [address]Tqpyyldtwup/100 WBC (Bld)1.3 %Normal 0.0-8.0Ohio[facility] Berger HospitalComment on above:Performed By: #### 4049943, 0636541, 74290074, 50704504, 35445669, 2543923, 49877266 ####[address] [place], [place] [address]Erowqvgnihp distribution width (RBC) [Ratio]13.3 %Nwxqvt22.9-14.2FClermont County Hospital Comment on above:Performed By: #### 6752392, 3097029, 97480305, 99154870, 74272015, 6400107, 34913809 ####[address] [address]Bphgeogcfo (Bld) [Volume fraction]38.3 %Normal 34.0-46.0[facility] Berger HospitalComment on above:Performed By: #### 5092312, 1340279, 04278771, 54728348, 46676996, 0311163, 93402629 ####[address] [address]Qwiuvivbtx (Bld) [Mass/Vol]12.9 g/xETjuosv20.0-16.0Ohio[facility] Berger HospitalComment on above: Performed By: #### 2954991, 2196607, 76241190, 20434825, 07750922, 5225197, [id number] ####[address] [address]Zpjvbtnimzp (Bld) [#/Vol]2.2 E9/LNormal1.0-4.0[facility] Comment on above:Performed By: #### 1417830, 2559110, 53071385, 13092383, 50836724, 8144109, 05125699 ####[address] [address]Tdjwmwhecwk/100 WBC (Bld)18.2 %Wvzcxm84.0-50.0 [facility] HospitalComment on above:Performed By: #### 0374077, 4598898, 08464700, 05775380, 25409067, 8407437, 14762419 ####[address] [address]BUO (RBC) [Entitic mass]31.7 pg Xfujbu95.0-34.0[facility] HospitalComment on above:Performed By: #### 4327760, 3960939, 49895326, 63419722, 35575811, 1450527, 27099670 ####[address] [address]LDOB (RBC) [Mass/Vol]33.8 g/nRNqgfll09.4-36.0[facility] HospitalComment on above: Performed By: #### 0966492, 5975653, 15357570, 22791022, 69226489, 5106816, 20027717 ####[address] [address]ESN (RBC) [Entitic vol]93.8 aHMyjelb87.0-100.0[facility] Comment on above:Performed By: #### 6630689, 3377317, 98279134, 48925889, 37656646, 8022620, 96002379 ####[address] [address]Kojmjfhbi (Bld) [#/Vol]0.6 E9/LNormal0.2-1.0[facility] HospitalComment on above:Performed By: #### 9296646, 3911496, 30408146, 11241721, 79026634, 5782249, 49552781 ####[address] [address]Ymrsgdbfmdv (Bld) [#/Vol]9.0 E9/LHigh 2.0-7.5FClermont County HospitalComment on above:Performed By: #### 7411079, 8915052, 57738856, 81117066, 04669944, 7139768, 74687009 ####[address] [address]Kneigtdrmox/100 WBC (Bld)75.2 %High36.0-75.0[facility] HospitalComment on above:Performed By: #### 0170259, 3158210, 40288638, 41486184, 32006883, 2118121, 83611358 ####[address] [address] Platelet mean volume (Bld) [Entitic vol]8.9 fLNormal6.4-10.8[facility] HospitalComment on above:Performed By: #### 8079075, 4589378, 04759774, 17870872, 44801324, 0842435, 05432136 ####[address] [address]Qkweacoiz (Bld) [#/Vol]245.0 E9/NAsdbmy430.0-500.0 [facility] HospitalComment on above:Performed By: #### 5133610, 5795049, 28026646, 16982446, 00424641, 9058473, 65833210 ####[address] [address]COS (Bld) [#/Vol]4.1 E12/LLow4.3-5.9 [facility] HospitalComment on above:Performed By: #### 3453629, 2831118, 70572727, 82763713, 90125243, 5335877, 62659214 ####[address] [address]GFS corrected for nucl RBC Auto (Bld) [#/Vol]11.9 E9/LHigh4.0-11.0[facility] HospitalComment on above: Performed By: #### 3336305, 4903966, 80127624, 65003985, 15672934, 9470513, 92228848 ####[address] [address]Ohxjeje for Treatmenton 50-88-4284Nnqnrsj for Treatment [id number]#1.00TIFFNewark HospitalDischarge Instructionson 67-80-4925Ezqgyxqsb Instructions [id number]#1.00TIFFNoTriHealth CenterED Clinical Summaryon 30-58-0382UK Clinical SummaryNormOhio [facility] Patient Education Noteon 05-74-8206FZ Patient Education Note NormalPremier Health [facility] Patient Summaryon 60-58-8003IU Patient SummaryNormUniversity Hospitals Geauga Medical CenterHep Func Panelon 37-18-3062Epzgczu [Mass/Vol]3.8 g/dLNormal3.3-5.0[facility] HospitalComment on above: Performed By: #### 6967084, 7445815, 82280160, 26128936, 08417303, 8898176, 96415513 ####[facility] [address] [place], [place] [address]Zobowbg/Globulin (S) [Mass conc ratio]1.7Psoavq7.1-2.2[facility] Trauma CenterComment on above:Performed By: #### 6474134, 9286767, 63529759, 50406747, 34155569, 0747802, 57282903 ####[facility] [address] [place], [place] [address]JIX [Catalytic activity/Vol]68 Int._Unit/LNormal 21-98[facility] HospitalComment on above:Performed By: #### 6370229, 5795903, 59204300, 61166359, 98462074, 6813942, 34220844 ####[facility] [address] [place], [place] [address]MMP No additional P-5'-P [Catalytic activity/Vol]22 Int._Unit/LNormal6-46[facility] HospitalComment on above:Performed By: #### 4024514, 0945269, 13852719, 28233741, 81720456, 1952056, 72009544 ####[address] [address]EZG [Catalytic activity/Vol]26 Int._Unit/LNormal 5-43[facility] HospitalComment on above:Performed By: #### 2788068, 5263893, 20584473, 07111331, 80993919, 9489935, 87283943 ####[address] [address]Dduxltuaw [Mass/Vol] 0.3 mg/dLNormal0.0-1.1FClermont County HospitalComment on above:Performed By: #### 3995224, 2888131, 37840430, 90561173, 50523430, 5154067, 68285867 ####[address] [address] Bilirubin.direct [Mass/Vol]0.1 mg/dLNormal0.0-0.4FClermont County Hospital Comment on above:Performed By: #### 8313128, 7367586, 26836151, 38304785, 37636219, 6939292, 04807631 ####[address] [address]Qypfrcoyu.indirect [Mass or moles/Vol]0.2 mg/dL Normal0.1-0.9[facility] HospitalComment on above:Performed By: #### 8122583, 0189476, 92717176, 51116102, 13650912, 1724923, 64389175 ####[address] [address]Zvzymanb (S) [Mass/Vol]2.8 g/dLNormal1.4-4.0[facility] HospitalComment on above: Performed By: #### 9776324, 7271119, 79156494, 00151224, 74979775, 8915826, 54538084 ####[facility] [address] [place], [place] [address]Jckkgcr [Mass/Vol]6.6 g/dLNormal6.0-7.8[facility] HospitalComment on above:Performed By: #### 0002486, 1068510, 95896630, 41508802, 49664452, 1299679, 44080835 ####[facility] [address] [place], [place] [address]FD & PTTon 33-92-6959bRDZ Coag (PPP) [Time]33.9 second(s) Ekzrgt86.1-36.5FClermont County HospitalComment on above:Result Comment: Parameter 15 days - 4 weeks 1 - 5 months 6 - 11 months 1 - 5 years 6 - 10 years 11 - 17 years PTT Mean: 35.4 (27.6-45.6) Mean: 33.5 (24.8-40.7) Mean: 32.4 (25.1-40.7) Mean: 31.6 (24.0-39.2) Mean: 31.6 (26.9-38.7) Mean: 31.0 (24.6-38.4) Pediatric Reference ranges were obtained from astudy by Chidi Valera et al. prepared from 1437 samples obtained at 7 different centers using [employer] coagulation reagent and instrumentation as [facility]. Currently there are no coagulation studies available worldwide for children to 14 days, and no normal ranges. Heparin therapeutic range (represented by Anti-Factor Xa activity of 0.2 - 0.4 U/mL) corresponds to PTT of 56.6 - 109.0 sec.Performed By: #### 1620448, 3644713, 35513244, 37619822, 02018513, 8329890, 87406491 ####[facility] [address] [place], [place] [address]UPT Coag (PPP) [Relative time]0.98 {INR}Invalid Interpretation CodeOhiohealth Berger Hospital Comment on above:Result Comment: INR results are specifically intended to assess patients stabilized on long-term Anticoagulation therapy suggested INR?s ?Less Intensive Anticoagulation? 2.0 ? 3.0Conventional Range 3.0 ? 4.5Performed By: #### 0523836, 9504932, 13316692, 78227866, 50211187, 3947772, 59072192 ####[facility] [address] [place], [place] [address]BG Coag (PPP) [Time]11.0 second(s)Normal9.4-12.5[facility] Shock Trauma CenterComment on above:Result Comment: 15 days - 4 weeks 1 - 5 months 6 -11 months 1-5 years 6-10 years 11 -17 years Mean:11.2 (9.5-12.6) Mean: 11.0 (9.7-12.8) Mean: 11.0 (9.8-13.0) Mean: 11.3 (9.9-13.4) Mean: 11.7 (10.0-14.6) Mean: 11.8 (10.0 - 14.1) Pediatric Reference ranges were obtained from a study by Chidi Valera et al. prepared from 1437 samples obtained at 7 different centers using the same coagulation reagent and instrumentation as [facility]. Currently there are no coagulation studies available worldwide for children to 14 days, and no normal ranges.Performed By: #### 2191636, 9462666, 05828379, 76892113, 47177994, 8253001, 35712200 ####[facility] [address] [place], [place] [address]JPX - Preliminary Cat Scan Reporton 11-59-2200DSQ - Preliminary Cat Scan [id number]#1.00TIFF NormalOhiohealth Berger HospitalTroponin 0 Hr.on 01-78-5021Ulqzxbqr16.90 pg/mL Bmecyw78.10-27.10[facility] HospitalComment on above:Result Comment: The 95% CI (Confidence Interval) PPV (Positive Predictive Value) for myocardial infarction in females is 38 pg/mL, in males 51 pg/mL. The results should be used in conjunction with clinical conditions of myocardial infarction.(Access High Sensitivity Troponin I Instructions For Use,Katlyn Allouez, October 2017) Performed By: #### 6487241, 5370306, 16592980, 17850457, 11450742, 4533317, 73200648 ####[facility] [address] [place], [place] [address]Bmsbtonp 1 Hr.on 26-39-6600Fjskjzzk4.50 pg/mLLow10.10-27.10[facility] HospitalComment on above:Order Comment: to be drawn at 1939. sne359 07/20/2023 18:47:40 EDTResult Comment: The 95% CI (Confidence Interval) PPV (Positive Predictive Value) for myocardial infarction in females is 38 pg/mL, in males 51 pg/mL. The results should be used in conjunction with clinical conditions of myocardial infarction.(Access High Sensitivity Troponin I Instructions For Use,Katlyn Edson, October 2017)Performed By: #### [id number] ####[address] [place], [place] [address]cUCW on 57-01-9820nCVL136 mL/min/1.73 e0Udcous>=59[facility] HospitalComment on above:Order Comment: Order added by Discern Expert.Performed By: #### 4856074, 3378395, 16539006, 09490522, 91284747, 8206523, 19726629 ####[address] [place], [place] [address]Zrwganz Records Officeon 18-60-2261Vexrnyu Records Office [id number]#1.00TIFWyandot Memorial HospitalAmbulatory Visit Summaryon 82-11-4873Ffgkrycnri Visit SummaryInvalid Interpretation CodeWeight gainOhiohealth Berger HospitalAut for Release of Medical Recordson 67-66-6221Msgw for Release of Medical Records [id number]#1.00TIFFNoProMedica Defiance Regional HospitalFormson 06-17-[id number]#1.00TIFF [facility] HospitalPatient Educationon 84-69-4639Mggxjou Education [facility] HospitalOutside Records Officeon 23-34-2512Quimkwg Records [id number]#1.00TIFFDuaneUniversity Hospitals Geauga Medical CenterOutside Records Office [id number]#1.00TIFFDuaneUniversity Hospitals Geauga Medical CenterConsent for Treatmenton 65-39-6393Pecrxjq for Treatment [id number]#1.00TIFFBrandiProMedica Defiance Regional HospitalConsultation Noteon 89-02-5112Nugzjvatyhsx NoteNoProMedica Defiance Regional HospitalComment on above:Result Comment: Electronically Signed By: Joao MILES, Dory\.br\Date and Time Signed: 07/15/23 14:14 EDTHIPAA Forms Officeon 78-99-9104HXIXS Forms [id number]#1.00TIFF Newark HospitalLegal Correspondence Officeon 04-62-7533Jfgoq Correspondence [id number]#1.00TIFFNogeorges [facility] HospitalLegal Correspondence Office [id number]#1.00TIFFNewark HospitalOffice/Clinic Note-Physicianon 54-99-6019Yqpzxg/Clinic Note-Physician [id number]#1.00TIFFDuaneUniversity Hospitals Geauga Medical CenterPatient Correspondenceon 15-02-5038Jdebkci Correspondence [id number]#1.00TIFFDuaneUniversity Hospitals Geauga Medical CenterPatient Qvyhpssm[id number]#1.00TIFF [facility] HospitalPatient Correspondence [id number]#1.00TIFFNormUniversity Hospitals Geauga Medical CenterPatient Zakxrg[id number]#1.00TIFF NormalOhiohealth Berger HospitalPatient Correspondence [id number]#1.00TIFFNormUniversity Hospitals Geauga Medical CenterPatient History Officeon 36-40-3631Tzindmh History Office [id number]#1.00TIFFNormUniversity Hospitals Geauga Medical CenterRelease of Records Officeon 05-68-7693Jrgxegk of Records Office [id number]#1.00TIFFNewark HospitalRelease of Records Office [id number]#1.00[facility] Memorial HospitalConsent for Treatmenton 08-45-7559Kcpmwbv for Treatment [id number]#1.00[facility] HospitalDischarge Instructionson 35-64-1477Siruyvoms Instructions [id number]#1.00TIFMercy Health Allen Hospital Clinical Summaryon 35-51-1893NI Clinical SummaryNoCincinnati Shriners [facility] Note-Physicianon 34-16-7136RT Note-PhysicianNewark HospitalComment on above:Result Comment: Electronically Signed By: Angelic Reece PA-C\.br\Date and Time Signed: 07/14/23 12:06 EDT\.br\Electronically Co-Signed By: Nikhil Tubbs DO\.br\Date and Time Co-Signed: 07/14/23 13:59 EDT ED Patient Education Noteon 17-85-2956WV Patient Education NoteNoTriHealth CenterED Patient Summaryon 56-63-2760JA Patient SummaryNormCommunity Regional Medical CenterConsent for Treatmenton 61-94-1780Rssvabo for Kbysb[id number]#1.00TIFWyandot Memorial HospitalDischarge Instructionson 08-16-9077Ikssgclxh Instructions [id number]#1.00TIFFAshtabula County Medical Center CenterED Clinical Summaryon 07-24-2171FO Clinical SummaryNoTriHealth CenterED Note-Physicianon 45-93-2327WE Note-PhysicianNewark HospitalComment on above:Result Comment: Electronically Signed By: Balbina Bryant M.D.\.br\Date and Time Signed: 07/10/2409:11 EDTED Patient Education Noteon 41-35-2940BX Patient Education NoteNoCincinnati Shriners Hospital Patient Summaryon 75-19-2250JK Patient SummaryNoProMedica Defiance Regional Hospital Clipboard Summaryon 82-78-3575Mbreplxlu Summary {he-77-ze-06-6o-ae-8l-71-43-20-0o-17-0f-d1-42-37}XMLNTriHealth McCullough-Hyde Memorial HospitalDischarge Instructionson 37-92-3397Vwcgbxgda Instructions [id number]#1.00TIFFBrandiProMedica Defiance Regional HospitalConsent for Treatmenton 64-92-9462Zqovkdo for Treatment [id number]#1.00TIFFDuaneOhio State Harding Hospital Clinical Summaryon 24-95-3810MQ Clinical SummaryNoTriHealth CenterED Note-Physicianon 76-95-4007JO Note-PhysicianNewark HospitalComment on above:Result Comment: Electronically Signed By: Pedro Pablo Fletcher DO\.br\Date and Time Signed: 07/06/23 19:43 EDTED Patient Education Noteon 68-06-2424TY Patient Education NoteNormalFisher Sal Medical CenterED Patient Summaryon 08-47-7274YJ Patient SummaryNoProMedica Defiance Regional HospitalConsent for Treatmenton 10-79-1932Zyjukme for Treatment [id number]#1.00TIFWyandot Memorial HospitalDischarge Instructionson 14-81-3471Qgblkldua Instructions [id number]#1.00TIFFAdena Fayette Medical Center Clinical Summaryon 64-80-5619KC Clinical SummaryNormBlanchard Valley Health System [facility] Hospital CenterED Note-Physicianon 81-08-3249QV Note-PhysicianNewark HospitalComment on above:Result Comment: Electronically Signed By: Landon Tidwell PA-C\.br\Date and Time Signed: 06/28/2414:22 EDT\.br\Electronically Co-Signed By: Nikhil Tubbs DO\.br\Date and Time Co- Signed: 06/28/2414:52 EDTED Patient Education Noteon 16-77-6700QU Patient Education NoteNoC[facility]innati [facility] Patient Summaryon 74-17-3942ON Patient SummaryNoProMedica Defiance Regional Hospital.HCV RT-PCR, Quant (Non-Graph) on 77-12-8301Qonxcapbnv impression Molgen Sky (Unsp spec) [Interp]CommentInvalid Interpretation CodeOhiohealth Berger HospitalComment on above:Result Comment: Positive HCV antibody screen without the presence of HCV RNAis consistent with a resolved past infection or a falsepositive HCV antibody. Consider repeat testing after onemonth.Performed at: [facility] [id number] MD Bhargav Weeksformed By: #### 5526148, [id number], [id number] ####[facility] [address] [place], [place] [address]MEL RNA LINDSEY+probe QnNot detectedInvalid Interpretation Code [facility] HospitalComment on above:Performed By: #### 0376241, [id number], [id number] ####[facility] [address] [place], [place] [address]Spwszczkg Lab Test Reference RangeCommentInvalid Interpretation [facility] HospitalComment on above:Result Comment: The quantitative range of this assay is 15 IU/mL to 100 million IU/mL.Performed By: #### 4950837, [id number], [id number] ####[facility] [address] [place], [place] [address]Sknhjla for Treatmenton 06-27-2023 Consent for Xqhs[id number]#1.00TIFFMercy Mccune-Brooks Hospitalal [facility] HospitalDischarge Instructionson 86-53-5353Jovbmaqba Na[id number]#1.00TIFFAdena Fayette Medical Center Clinical Summaryon 40-31-2851TT Clinical SummaryNoC[facility] Note-Physicianon 25-61-7485PH Note-PhysicianNewark HospitalComment on above:Result Comment: Electronically Signed By: Kristie Boss PA-C\.br\Date and Time Signed: 06/27/23 12:40 EDT\.br\Electronically Co-Signed By: Nikhil Tubbs DO\.br\Date and Time Co- Signed: 06/27/23 14:49 EDTED Patient Education Noteon 48-82-4450NM Patient Education NoteNoC[facility] Patient Summaryon 86-91-2498DQ Patient SummaryNoProMedica Defiance Regional HospitalHCV Antibody RFX to Quant PCRon 13-99-3248NKF IgG IA QlReactiveAbnormalSycamore Medical Center Comment on above:Result Comment: Performed at: Lab[address] [id number] PhD Pantera Clarkformed By: #### 2941730, [id number], [id number] ####[facility] [address] [place], [place] [address]Bcg Bs Agon 94-96-4915HQN surface Ag IA QlNegativeInvalid Interpretation CodeNegativeOhiohealth Berger HospitalComment on above:Result Comment: Performed at: [facility]coThe [facility] HospitalJdkblk2493 [place], [place] [id number] PhD Pantera AlonsoPerformed By: #### 3132388, [id number], [id number] ####[facility] [address] [place], [place] [address]Jpgjbge for Treatmenton 65-46-2171Xdauprh for Treatment [id number]#1.00TIFWyandot Memorial HospitalDischarge Instructionson 58-11-7007Gsdtkgmqr Instructions [id number]#1.00TIFMercy Health Allen Hospital Clinical Summaryon 14-74-4174HA Clinical SummaryNoC[facility] Note-Physicianon 95-55-1457CS Note-PhysicianNewark HospitalComment on above:Result Comment: Electronically Signed By: Annette Watkins, Balbina Alcantar.br\Date and Time Signed: 06/24/2411:17 EDTED Patient Education Noteon 83-95-2752OM Patient Education NoteNoC[facility] Patient Summaryon 18-10-9199UK Patient SummaryNoProMedica Defiance Regional Hospital MRI Spine Lumbar w/o Contraston 34-22-9265YAB Spine Lumbar w/o ContrastNormal [facility] HospitalRAD - MRI Screening Formon 51-35-5394NEN - MRI Screening [id number]#1.00TIFWyandot Memorial HospitalCT Abdomen/Pelvis w/ Contraston 98-91-5723LI Abdomen/Pelvis w/ ContrastNormUniversity Hospitals Geauga Medical CenterCBC w/ Auto Diffon 06-22-2023 Basophils/100 WBC (Bld)0.1 %Normal0.0-2.0[facility] HospitalComment on above:Performed By: #### 86385870, 0061304, 2022666, 2362693, 5482219, 62289070, 04948984, 6301539 ####[facility] [address] [place], [place] [address]Vbwtimqvv/Leukocytes Auto (Bld) [Pure # fraction]0.0 E9/L Normal0.0-0.2FClermont County HospitalComment on above:Performed By: #### 45595286, 0143829, 1512232, 6638422, 7082586, 17851334, 42775907, 7956092 ####[address] [address] Eosinophils (Bld) [#/Vol]0.1 E9/LNormal0.0-0.5FClermont County HospitalComment on above:Performed By: #### 28071785, 2509347, 9696693, 9584502, 6345826, 44858701, 98582286, 7267950 ####[address] [address]Dyexagstydg/100 WBC (Bld)0.9 %Normal0.0-8.0[facility] HospitalComment on above:Performed By: #### 39634827, 0654158, 6513149, 9139964, 9572929, 62286948, 96433825, 3558553 ####[address] [address]Keqilknsyrg distribution width (RBC) [Ratio]13.3 %Vgvotc96.9-14.2FClermont County HospitalComment on above: Performed By: #### 04660456, 2197931, 7426951, 2683657, 0245978, 12906997, 35384409, 3460897 ####[address] [address]Sxtnjwvefe (Bld) [Volume fraction]45.0 %Piialk89.0-46.0 [facility] HospitalComment on above:Performed By: #### 40621359, 8895235, 3393478, 9575636, 0944621, 89420273, 27750284, 1901171 ####[facility] [address] [place], [place] [address]Fqubyakedw (Bld) [Mass/Vol]15.1 g/uPZevolu36.0-16.0[facility] HospitalComment on above: Performed By: #### 32069751, 4315709, 1911783, 8458880, 9831911, 23286502, 78752061, 7706898 ####[facility] [address] [place], [place] [address]Pjiqgynabef (Bld) [#/Vol]0.4 E9/LLow1.0-4.0[facility] HospitalComment on above:Performed By: #### 79187070, 1527438, 1992396, 5153740, 2639435, 76247900, 38835572, 2812522 ####[facility] [address] [place] [address]Tjwbgusynxz/100 WBC (Bld)3.7 %Low 14.0-50.0[facility] HospitalComment on above:Performed By: #### 00078323, 1557118, 3747916, 7022090, 8591048, 54059054, 03988644, 1402703 ####[facility] [address] [place], [place] [address]LJK (RBC) [Entitic mass]31.5 clTsvmsq61.0-34.0[facility] HospitalComment on above:Performed By: #### 19126537, 9447307, 9485685, 5592188, 4286766, 00989325, 75122665, 3227319 ####[facility] [address] [place], [place] [address]VAGP (RBC) [Mass/Vol]33.5 g/yJFifxvt53.4-36.0[facility] HospitalComment on above:Performed By: #### 31472005, 3680841, 2747055, 5976938, 4123964, 79260203, 29381272, 9888357 ####[address] [place], [place] [address]BNF (RBC) [Entitic vol]94.2 fLNormal 80.0-100.0[facility] HospitalComment on above:Performed By: #### 01994062, 4045390, 4055114, 1337070, 6005545, 13114053, 26780433, 6149911 ####[address] [address] Monocytes (Bld) [#/Vol]0.3 E9/LNormal0.2-1.0[facility] HospitalComment on above:Performed By: #### 67397664, 5053944, 1304457, 5399747, 2465573, 18649517, 13571835, 7534042 ####[address] [address]Bgzqvgloztt (Bld) [#/Vol]9.5 E9/LHigh2.0-7.5FClermont County HospitalComment on above:Performed By: #### 66127759, 8754515, 9781707, 2193598, 7757738, 08581270, 81703258, 1427678 ####[address] [address]Hhwjovpdiqo/100 WBC (Bld)92.1 %High36.0-75.0[facility] HospitalComment on above:Performed By: #### 41085400, 6017418, 1510701, 7155789, 0136636, 96236316, 32750172, 7212047 ####[address] [place] [address] Sasonfih402.0 E9/MWutbsk526.0-500.0[facility] HospitalComment on above: Performed By: #### 95997906, 8359602, 6963498, 2898464, 9099723, 06140531, 99484520, 4451501 ####[facility] [address] [place], [place] [address]Mhlkadgo mean volume (Bld) [Entitic vol]8.7 fLNormal6.4-10.8 [facility] HospitalComment on above:Performed By: #### 24435036, 7436150, 7920734, 3641185, 0686522, 31127249, 48361843, 9256664 ####[facility] [address] [place], [place] [address]IPM (Bld) [#/Vol]4.8 E12/LNormal4.3-5.9[facility] HospitalComment on above:Performed By: #### 92483183, 3054430, 1703941, 2574384, 2333096, 45753658, 30339645, 0087340 ####[facility] [address] [place], [place] [address]SEI corrected for nucl RBC Auto (Bld) [#/Vol]10.3 E9/LNormal4.0-11.0[facility] HospitalComment on above:Performed By: #### [id number], [id number], [id number], [id number], [id number], [id number], [id number] ####[facility] [address] [place], [place] [address]BIGRZICBHUpkogjn By: Chiquita Michaud on [id number] Acid Lvl1.4 mmol/LNormal0.5 - 2.2 mmol/LRemisol ChemCHEMISTRY Ordered By: SYSTEM SYSTEM on [id number] [Mass/Vol]4.2 g/dLNormal3.3 - 5.0 gm/dLRemisol ChemAlbumin/Globulin [Mass ratio]1.2 {ratio}Normal1.1 - 2.2Remisol ChemALP [Catalytic activity/Vol]74 [iU]/wEejaux58 - 98 Int._Unit/LRemisol Chem ALT No additional P-5'-P [Catalytic activity/Vol]17 [iU]/dNormal6 - 46 Int._Unit/LRemisol ChemAnion gap [Moles/Vol]13 mmol/LNormal6 - 16 mEq/LRemisol ChemAST [Catalytic activity/Vol]18 [iU]/dNormal5 - 43 Int._Unit/LRemisol Chem Bilirubin [Mass/Vol]0.6 mg/dLNormal0.0 - 1.1 mg/dLRemisol ChemCalcium [Mass/Vol] 8.3 mg/dLLow8.9 - 11.1 mg/dLRemisol ChemChloride [Moles/Vol]106 mmol/LCboqgf823 - 111 mmol/LRemisol ChemCO2 [Moles/Vol]24 mmol/WMeorbh45 - 31 mmol/LRemisol Chem Creatinine [Mass/Vol]0.7 mg/dLNormal0.5 - 1.3 mg/dLRemisol McxzcCHI848 mL/min/1.73 s9Yseonf>=59mL/min/1.73 r6Nmrutxk ChemGlobulin (S) [Mass/Vol]3.6 g/dLNormal1.4 - 4.0 gm/dLRemisol ChemGlucose [Mass/Vol]124 mg/yFFbdoyz09 - 199 mg/dLRemisol ChemLipase [Catalytic activity/Vol]unit/LLow13 - 58 unit/LRemisol ChemMagnesium [Mass/Vol]1.8 mg/dLNormal1.3 - 2.4 mg/dLRemisol ChemPotassium [Moles/Vol]3.9 mmol/LNormal3.5 - 5.3 mmol/LRemisol ChemProtein [Mass/Vol]7.8 g/dLNormal6.0 - 7.8 gm/dLRemisol ChemSodium [Moles/Vol]139 mmol/DDqzsia290 - 145 mmol/LRemisol ChemTroponin3.10 pg/mLLow10.10 - 27.10 pg/mLRemisol ChemComment on above:Interpretive Data: The 95% CI (Confidence Interval) PPV (Positive Predictive Value) for myocardial infarction in females is 38 pg/mL, in males 51 pg/mL. The results should be used in conjunction withclinical conditions of myocardial infarction. (Access High Sensitivity Troponin I Instructions For Use, Katlyn Edson, October 2017)Urea nitrogen [Mass/Vol]13 mg/dLNormal5 - 21 mg/dLRemisol ChemUrea nitrogen/Creatinine [Mass ratio]19 mg/kqSrdldw55 - 20Remisol ChemCMPon 98-61-2833Suwbmzw [Mass/Vol]4.2 g/dLNormal3.3-5.0[facility] Comment on above:Performed By: #### [id number], 5939844, 7148693, 2998869, 3226517, 20017010, 59514609, 5488704 ####[facility] [address] [place], [place] [address]Svlpspg/Globulin (S) [Mass conc ratio]1.8Uxfyzf3.1-2.2FClermont County HospitalComment on above:Performed By: #### [id number], 2630496, 4654810, 7697134, 0205135, 80968290, 31829810, 8543273 ####[facility] [address] [place], [place] [address]UWU [Catalytic activity/Vol]74 Int._Unit/FWzvjnp27-14WdukwvOhiohealth Berger Hospital Comment on above:Performed By: #### 26815639, 0216694, 7489659, 9101055, 9839759, 15767255, 94021000, 5511631 ####[address] [place], [place] [address]CRR No additional P-5'-P [Catalytic activity/Vol]17 Int._Unit/LNormal6-46[facility] HospitalComment on above:Performed By: #### 37084466, 1332143, 2866739, 2506096, 9191367, 32646842, 48297390, 0013559 ####[facility] [address] [place], [place] [address]Xnswn gap [Moles/Vol]13 mmol/LNormal6-16[facility] HospitalComment on above:Performed By: #### 05773046, 0575240, 8471816, 7978111, 8109367, 88441975, 98792577, 8794488 ####[facility] [address] [place], [place] [address]SLW [Catalytic activity/Vol]18 Int._Unit/LNormal5-43[facility] HospitalComment on above:Performed By: #### 14765279, 6621000, 9871707, 1660226, 2901287, 29143801, 65154566, 4247018 ####[facility] [address] [place] [address] Bilirubin [Mass/Vol]0.6 mg/dLNormal0.0-1.1FClermont County HospitalComment on above:Performed By: #### 87805720, 1564309, 0761248, 0339095, 1636094, 38096109, 39097521, 4409041 ####[address] [address]Ibbkknk [Mass/Vol]8.3 mg/dLLow8.9-11.1FClermont County HospitalComment on above:Performed By: #### 17862932, 5050589, 7408079, 9529965, 3415714, 61426078, 14510175, 5281845 ####[address] [address]Oclkmovu [Moles/Vol]106 mmol/LNormal 101-111Ohio[facility] Berger HospitalComment on above:Performed By: #### 88936564, 3502764, 9440257, 6797286, 4015712, 38344006, 22753305, 6276342 ####[address] [place], [place] [address]KN5 [Moles/Vol]24 mmol/XSetmcc84-27BoqsowOhiohealth Berger HospitalComment on above:Performed By: #### 20024003, 8449009, 8619495, 4380199, 3102046, 21028904, 45176262, 4160467 ####[facility] [address] [place] [address] Creatinine [Mass/Vol]0.7 mg/dLNormal0.5-1.3FClermont County HospitalComment on above:Performed By: #### 23245579, 3938521, 3025101, 6336717, 8255208, 35006733, 21452455, 9175479 ####[facility] [address] [place], [place] [address]Zlghlyjj (S) [Mass/Vol]3.6 g/dLNormal1.4-4.0[facility] HospitalComment on above:Performed By: #### 88788199, 6629453, 4118144, 6180782, 2051752, 26585626, 56410016, 5130557 ####[address] [address]Bhhlvkl [Mass/Vol]124 mg/dL Qcioln08-108TxttfgOhiohealth Berger HospitalComment on above:Performed By: #### 74460263, 2903391, 3606632, 8299367, 9225440, 81109845, 86821966, 2725067 ####[address] [address] Potassium [Moles/Vol]3.9 mmol/LNormal3.5-5.3FClermont County HospitalComment on above:Performed By: #### 88520147, 6089338, 9238592, 1485029, 6368108, 74515993, 09435643, 4538217 ####[facility] [address] [place], [place] [address]Gxjnseh [Mass/Vol]7.8 g/dLNormal6.0-7.8[facility] HospitalComment on above:Performed By: #### 83435717, 6243746, 1154048, 4320019, 5852673, 15766620, 09612967, 4070248 ####[address] [address]Rpinyo [Moles/Vol]139 mmol/LNormal 135-145Ohio[facility] HospitalComment on above:Performed By: #### 04171189, 2858646, 4359830, 8631698, 2185524, 94931552, 36296296, 0069411 ####[facility] [address] [place], [place] [address]Tsbu nitrogen [Mass/Vol]13 mg/dLNormal5-21[facility] HospitalComment on above: Performed By: #### 99160773, 7490980, 4894533, 5995393, 8866982, 00033239, 70491122, 9019928 ####[facility] [address] [place], [place] [address]Eagf nitrogen/Creatinine [Mass ratio]19 No ApsbvTjqsty22-31 [facility] HospitalComment on above:Performed By: #### 23433478, 3611140, 6373504, 5666825, 9317877, 15013285, 13924490, 4510325 ####[facility] [address] [place], [place] [address]QGDWRWKDASCWmmpvhe By: Elke Carrillo on 12-16-5096zITE Coag (PPP) [Time]36.0 cOlxjda45.1 - 36.5 second(s)[facility] Auto CoagComment on above:Interpretive Data: Parameter 15 days - 4 weeks 1 - [...] the same coagulation reagent and instrumentation as [facility]. Currently there are no coagulation studies available worldwide for children to 14 days, andno normal ranges. Heparin therapeutic range (represented by Anti-Factor Xa activity of 0.2 - 0.4 U/mL) corresponds to PTT of 56.6 - 109.0 sec.INR Coag (PPP) [Relative time]0.96 {INR}Invalid Interpretation CodeHARPER COUNTY COMMUN[facility]OS[facility] Auto CoagComment on above:Interpretive Data: INR results are specifically intended to assess patients stabilized on long-term Anticoagulation therapy suggested INR s Less Intensive Anticoagulation 2.0 3.0 Conventional Range 3.0 4.5PT Coag (PPP) [Time]10.7 sNormal9.4 - 12.5 second(s) [facility] Auto CoagComment on above:Interpretive Data: 15 days - 4 weeks 1 - [...] the same coagulation reagent and instrumentation as [facility]. Currently there are no coagulation studies available worldwide for children to 14 days, andno normal ranges.Consent for Treatmenton 24-00-1627Krexqma for Treatment [id number]#1.00TIFFNoProMedica Defiance Regional HospitalConsent for [id number]#1.00TIFF [facility] HospitalDischarge Instructionson 22-78-8159Yxyiuafrs [id number]#1.00TIFFAdena Fayette [facility] Clinical Summaryon 75-21-4902CD Clinical SummaryNormOhio State [facility] Note-Physicianon 16-14-0979VW Note-PhysicianNoProMedica Defiance Regional HospitalComment on above:Result Comment: Electronically Signed By: Susu Lamar PA-C.br\Date and Time Signed: 06/22/23 15:59 EDT\.br\Electronically Co-Signed By: Nikhil Tubbs DO.br\Date and Time Co- Signed: 06/22/23 18:54 EDTED Patient Education Noteon 70-70-2930IL Patient Education NoteNoCincinnati [facility] Patient Summaryon 14-91-0036DE Patient SummaryNoProMedica Defiance Regional HospitalHEMATOLOGYOrdered By: SYSTEM SYSTEM on 98-87-3573Iaspznjdl/100 WBC (Bld)0.1 %Normal0.0 - 2.0 %Remisol Heme Basophils/Leukocytes Auto (Bld) [Pure # fraction]0.0 E9/LNormal0.0 - 0.2 E9/L Remisol HemeEosinophils (Bld) [#/Vol]0.1 E9/LNormal0.0 - 0.5 E9/LRemisol Heme Eosinophils/100 WBC (Bld)0.9 %Normal0.0 - 8.0 %Remisol HemeErythrocyte distribution width (RBC) [Ratio]13.3 %Bprdil42.9 - 14.2 %Remisol HemeHematocrit (Bld) [Volume fraction]45.0 %Exvsjz07.0 - 46.0 %Remisol HemeHemoglobin (Bld) [Mass/Vol]15.1 g/kHRvddni25.0 - 16.0 gm/dLRemisol HemeLymphocytes (Bld) [#/Vol] 0.4 E9/LLow1.0 - 4.0 E9/LRemisol HemeLymphocytes/100 WBC (Bld)3.7 %Low14.0 - 50.0 %Remisol HemeMCH (RBC) [Entitic mass]31.5 ubQgltuw13.0 - 34.0 pgRemisol HemeMCHC (RBC) [Mass/Vol]33.5 g/cCKgqovf58.4 - 36.0 gm/dLRemisol HemeMCV (RBC) [Entitic vol]94.2 tKNmunxp49.0 - 100.0 fLRemisol HemeMonocytes (Bld) [#/Vol]0.3 E9/LNormal0.2 - 1.0 E9/LRemisol HemeMonocytes/100 WBC (Bld)3.2 %Low4.0 - 14.0 % Remisol HemeNeutrophils (Bld) [#/Vol]9.5 E9/LHigh2.0 - 7.5 E9/LRemisol Heme Neutrophils/100 WBC (Bld)92.1 %High36.0 - 75.0 %Remisol PzgxYdvxcggs468.0 E9/L Jkycki809.0 - 500.0 E9/LRemisol HemePlatelet mean volume (Bld) [Entitic vol]8.7 fLNormal6.4 - 10.8 fLRemisol HemeRBC (Bld) [#/Vol]4.8 E12/LNormal4.3 - 5.9 E12/L Remisol HemeWBC corrected for nucl RBC Auto (Bld) [#/Vol]10.3 E9/LNormal4.0 - 11.0 E9/LRemisol HemeHIV-1/2 Ag/Ab Comboon 01-68-2696WLG 1+2 Ab and HIV1 p24 Ag IA.rapid Nom (S/P/Bld)NegativeNormalNegativeOhiohealth Berger HospitalComment on above:Performed By: #### [id number] ####[address] [place], [place] [address]IQG 1+2 Ab+HIV1 p24 Ag IA Ql Ejt-YigmqsvhCnerkhBnc-BejvqnouCzrzwt Titus Medical CenterComment on above: Performed By: #### [id number] ####[facility] [address] [place], [place] [address]ZJV Combo Internal Control LineReactiveNormal ReactiveOhiohealth Berger HospitalComment on above:Performed By: #### [id number] ####[facility] [address] [place] [address]IMY- 1/2 Ag/Ab ComboNegative for HIV-1 and/or HIV-2 antibodies and HIV-1 p24 antigen. NormalNegativeOhiohealth Berger HospitalInfluenza A&B Agon 37-84-9281Wphjdcwtuk A AgNegativeNormalNegativeOhiohealth Berger HospitalComment on above:Performed By: #### [id number], [id number] ####[facility] [address] [place], [place] [address]Muguurjuew B AgNegativeNormalNegativeOhiohealth Berger HospitalComment on above:Result Comment: Test sensitivity and specificity vary for age group, specimen type, antigen types, and prevalence of disease. Test results must be evaluated in conjunction with other clinical data available to the physician. Individuals who received nasally administered Influenza A vaccine may havepositive test results up to 3 days after vaccination.Performed By: #### [id number], [id number] ####[facility] [address] [place], [place] [address]Kyvulg Acidon 90-54-4881Qmwlxs Acid Lvl1.4 mmol/L Normal0.5-2.2FClermont County HospitalComment on above:Performed By: #### 34192377, 8956459, 1522111, 2592959, 7885418, 39724318, 15244197, 1829032 ####[facility] [address] [place] [address] Lipase Levelon 88-54-3648Ypaopr [Catalytic activity/Vol]U/USfh01-95OrhwjaOhiohealth Berger HospitalComment on above:Performed By: #### 56638073, 4967145, 7769115, 7865463, 6902901, 98380220, 15512880, 5940803 ####[facility] [address] [place], [place] [address]HDIGS OTHER TESTSOrdered By: Allen Hansen on 51-62-7293Hcgglirkxn A AgNegative (06/22/23 2:59 PM)NormalNegativeH[facility] Man SeroInfluenzae B AgNegative 2 (06/22/23 2:59 PM)NormalNegativeH[facility] Man SeroComment on above:Interpretive Data: Test sensitivity and specificity vary for age group, specimen type, antigen types, and prevalence of disease. Test results must be evaluated in conjunction with other clinical dataavailable to the physician. Individuals who received nasally administered Influenza A vaccine may have positive test results up to 3 days after vaccination.Rapid COV Int NEG CtlPass (06/22/23 2:59 PM)NormalHARPER [facility] Man SeroRapid COV Int POS CtlPass (06/22/23 2:59 PM)NormalHARPER COUNTY [facility] Man SeroSARS-CoV+SARS-CoV-2 (COVID-19) Ag IA.rapid Ql (Resp)Not Detected 7 (06/22/23 2:59 PM)NormalNot DetectedHARPER COUNTY [facility] Man SeroComment on above:Interpretive Data: The BeiZ System for Rapid Detection of SARS-CoV-2 is a chromatographic digital immunoassay intended for the direct and qualitative detection of SARS-CoV-2 nucleocapsid antigens in nasal swabs from individuals who are suspected of COVID-19 by their healthcare provider withinthe first five days of the onset of [...] of proteins from SARS-CoV-2, not for any otherviruses or pathogens; and, in the [place], this test is only authorized for the duration of the declaration that circumstances exist justifying the authorization of emergency use of in vitro diagnostics for detection and/or diagnosis of the virus that causes COVID-19 under Section 564(b)(1) of the Act,21 U.S.C. 360bbb-3(b)(1), unless the authorization is terminated or revoked sooner.Magnesiumon 22-59-0530Pnjqubbgn [Mass/Vol]1.8 mg/dL Normal1.3-2.4FClermont County HospitalComment on above:Performed By: #### [id number], 2816693, 9461959, 9821261, 2907783, 49059086, 14082210, 2944742 ####[facility] [address] [place], [place] [address]KF & PTTon 19-53-7284yUOR Coag (PPP) [Time]36.0 second(s)Qrnhsa08.1-36.5FClermont County HospitalComment on above:Result Comment: Parameter 15 days - 4 weeks 1 - 5 months 6 - 11 months 1 - 5 years 6 - 10 years 11 - 17 years PTT Mean: 35.4 (27.6-45.6) Mean: 33.5 (24.8-40.7) Mean: 32.4 (25.1-40.7) Mean: 31.6 (24.0-39.2) Mean: 31.6 (26.9-38.7) Mean: 31.0 (24.6-38.4) Pediatric Reference ranges were obtained from astudy by Chidi Valera et al. prepared from 1437 samples obtained at 7 different centers using [employer] coagulation reagent and instrumentation as [facility]. Currently there are no coagulation studies available worldwide for children to 14 days, and no normal ranges. Heparin therapeutic range (represented by Anti-Factor Xa activity of 0.2 - 0.4 U/mL) corresponds to PTT of 56.6 - 109.0 sec.Performed By: #### [id number], 0848225, 7781992, 8308072, 7163785, 60191684, 32496431, 1194385 ####[facility] [address] [place], [place] [address]PXW Coag (PPP) [Relative time] 0.96 {INR}Invalid Interpretation CodeFisher R Adams Cowley Shock Trauma CenterComment on above:Result Comment: INR results are specifically intended to assess patients stabilized on long-term Anticoagulation therapy suggested INR?s ?Less Intensive Anticoagulation? 2.0 ? 3.0Conventional Range 3.0 ? 4.5Performed By: #### [id number], 5880508, 5467999, 2325888, 8608688, 35501651, 93818422, 8597526 ####[facility] [address] [place], [place] [address]XP Coag (PPP) [Time]10.7 second(s)Normal9.4-12.5Fisher [facility] Cow[facility] Shock Trauma CenterComment on above:Result Comment: 15 days - 4 weeks 1 - 5 months 6 -11 months 1 ? 5 years 6 ? 10 years 11 -17 years Mean: 11.2 (9.5 ? 12.6) Mean: 11.0 (9.7 ? 12.8) Mean: 11.0 (9.8 ? 13.0) Mean: 11.3 (9.9 ? 13.4) Mean:11.7 (10.0 ? 14.6) Mean: 11.8 (10.0 - 14.1) Pediatric Reference ranges were obtained from a study by Chidi Valera et al. prepared from 1437 samples obtained at 7 different centers using the same coagulation reagent and instrumentation as [facility]. Currently there are no coagulation studies available worldwide for children to 14 days, and no normal ranges.Performed By: #### 83379956, 5221461, 0345646, 0387502, 0813315, 63855122, 28203552, 3213187 ####[facility] [address] [place], [place] [address]Cvmmmkkzc Orderon 67-99-8911Lbsmhblyz Order [id number]#1.00TIFFNoProMedica Defiance Regional HospitalRAD - Preliminary Cat Scan Reporton 92-71-0936ZDE - Preliminary Cat Scan [id number]#1.00TIFFNormUniversity Hospitals Geauga Medical CenterRapid COVID Antigen ([facility])on 37-08-7811Javvv COV Int NEG CtlPass [facility] HospitalComment on above:Performed By: #### [id number], [id number] ####[facility] [address] [place], [place] [address]Dgdtw COV Int POS CtlPassNormalOhiohealth Berger HospitalComment on above:Performed By: #### 87634995, [id number] ####[facility] [address] [place], [place] [address]ZSIE-DxT+SARS-CoV-2 (COVID-19) Ag IA.rapid Ql (Resp)Not detectedNormalNot DetectedOhiohealth Berger Hospital Comment on above:Result Comment: The [employer] Veritor? System for Rapid Detection of SARS-CoV-2 is a chromatographic digital immunoassay intended for the direct and qualitative detection of SARS-CoV-2 nucleocapsid antigensin nasal swabs from individuals who are suspected of COVID-19 by their healthcare provider within th e first five days of the onset of symptoms. Negative results should be treated as presumptive, do not rule out SARS-CoV-2 infection and should not be used as the sole basis for treatment or patient management decisions, including infection control decisions. Negative results should be considered inthe context of a patient?s recent exposures, history [...] detection and/or diagnosis of the virus that cau ses COVID-19 under Section 564(b)(1) of the Act, 21 U.S.C. ? 360bbb-3(b)(1), unless the authorization is terminated or revoked sooner.Performed By: #### [id number], [id number] ####[facility] [address] [place], [place] [address]Eskszwaa 0 Hr.on 32-68-1423Nhvkgnyb9.10 pg/mLLow10.10-27.10 [facility] HospitalComment on above:Result Comment: The 95% CI (Confidence Interval) PPV (Positive Predictive Value) for myocardial infarction in females is 38 pg/mL, in males 51 pg/mL. The results should be used in conjunction with clinical conditions of myocardial infarction.(Access High Sensitivity Troponin I Instructions For Use,Katlyn [employer], October 2017) Performed By: #### [id number], 1051359, 9391518, 1603457, 1496960, 29308671, 48237239, 1054889 ####[address] [place], [place] [address]FV with Cult Rflxon 76-62-1984Rkjja (U)YellowNormalYellow [facility] HospitalComment on above:Result Comment: Microscopic readings are only performed on those samples that meet specific criteria set forth by [facility].Performed By: #### [id number] ####[address]Glucose (U) [Mass/Vol]NegativeNormalNegativeOhiohealth Berger HospitalComment on above: Performed By: #### [id number] ####[address] [place], [place]Ketones Ql (U)NegativeNormalNegativeOhiohealth Berger HospitalComment on above:Performed By: #### [id number] ####[address]UA BloodNegativeNormal NegativeOhiohealth Berger HospitalComment on above:Performed By: #### [id number] ####[facility] [address] [place] [address]JG ClarityClearNormalClearOhiohealth Berger HospitalComment on above: Performed By: #### [id number] ####[address], JA[address]WR Leuk EstNegativeNormalNegativeOhiohealth Berger HospitalComment on above:Performed By: #### [id number] ####[address], HS[address]IB NitriteNegative NormalNegativeOhiohealth Berger HospitalComment on above:Performed By: #### [id number] ####[address], [place] [address]BQ pH7.0Invalid Interpretation Code5.0-9.0[facility] Comment on above:Performed By: #### [id number] ####[address]UA ProteinTraceAbnormalNegKindred Hospital DaytonComment on above:Performed By: #### [id number] ####[address], [id number] Spec Grav1.028 Invalid Interpretation Code1.005-1.030Ohio[facility] Berger HospitalComment on above:Performed By: #### [id number] ####[address], [id number] UrobilinogenNegativeNormalNegative [facility] HospitalComment on above:Performed By: #### [id number] ####[address], [address] Urobilinogen (U) [Mass/Vol]NegativeNormGalion Hospital Comment on above:Performed By: #### [id number] ####[address], [id number] Spec DescClean CatchNoProMedica Defiance Regional HospitalComment on above:Performed By: #### [id number] ####[facility] [address], DX[address]RFPYVTMEOEYjrizoc By: SYSTEM SYSTEM on 40-08-0590Mwrfu (U)Yellow 1 (06/22/23 3:09 PM)NormalYellowHARPER COUNTY [facility] UA Auto SSComment on above:Interpretive Data: Microscopic readings are only performed on those samples that meet specific criteria set forth by [facility].Glucose (U) [Mass/Vol]NegativeNormalNegativemg/dLHARPER COUNTY [facility] UA Auto SSKetones Ql (U)NegativeNormal Negativemg/dLHARPER [facility] UA Auto SSUA BloodNegativeNormalNegativemg/dLHARPER COUNTY [facility] UA Auto SSUA ClarityClear (06/22/23 3:09 PM)NormalClearFTMC UA Auto SSUA Leuk EstNegativeNormal NegativeLeu/uLFT UA Auto SSUA NitriteNegativeNormalNegativemg/dLHARPER COUNTY [facility] UA Auto SSUA pH7.0 *NA* (06/22/23 3:09 PM)Invalid Interpretation Code5.0 - 9.0[facility] UA Auto SSUA Protein Trace mg/dLInvalid Interpretation CodeNegativemg/dLFT UA Auto SSUA Spec Grav 1.028 *NA* (06/22/23 3:09 PM)Invalid Interpretation Code1.005 - 1.030[facility] UA Auto SSUA UrobilinogenNegativeNormalNegativemg/dLHARPER COUNTY [facility] UA Auto SSUrobilinogen (U) [Mass/Vol]NegativeNormalNegativemg/dLHARPER COUNTY [facility] UA Auto SSURINALYSISOrdered By: Susu Lamar on 42-46-7193RJ Spec DescClean Catch (06/22/23 3:09 PM)NormalHARPER COUNTY [facility] UA Auto SS eGFRon 66-87-5152lVDM082 mL/min/1.73 u6Bvbijx>=59TommySt. Agnes HospitalComment on above:Order Comment: Order added by Discern Expert.Performed By: #### [id number], 4481490, 0493773, 3723970, 0422954, 55725526, 98149031, 9491522 ####[facility] [address] [place], [place] [address]Eyimzfy for Treatmenton 70-89-6104Whsvyex for [id number]#1.00TIFWyandot Memorial HospitalDischarge Instructionson 67-36-8664Nkathfdaq Instructions [id number]#1.00TIFFAshtabula County Medical Center CenterED Clinical Summaryon 77-19-2119KJ Clinical SummaryNoTriHealth CenterED Note-Physicianon 99-71-7245OF Note-PhysicianNewark HospitalComment on above:Result Comment: Electronically Signed By: Balbina Bryant M.D.\.br\Date and Time Signed: 06/14/2417:34 EDTED Patient Education Noteon 04-17-5813QQ Patient Education NoteAdena Fayette Medical Center Patient Summaryon 53-78-6869JA Patient [facility] Consent for Treatmenton 32-14-7336Ozhlygb for Treatment [id number]#1.00TIFWyandot Memorial HospitalDischarge Instructionson 87-92-9451Cajszthry Instructions [id number]#1.00TIFMercy Health Allen Hospital Clinical Summaryon 88-91-3935IU Clinical SummaryNoCincinnati [facility]rin[facility] Note-Physicianon 05-18-7764UP Note-PhysicianNewark HospitalComment on above:Result Comment: Electronically Signed By: Elisa Sánchez DO\.rufino\Date and Time Signed: 06/11/23 22:47 EDTED Patient Education Noteon 90-48-6116MT Patient Education NoteAdena Fayette Medical Center Patient Summaryon 98-09-7058BG Patient SummaryNewark Hospital ED Note-Physicianon 05-97-6407ZL Note-PhysicianNewark Hospital Comment on above:Result Comment: Electronically Signed By: Landon Tidwell PA-C.br\Date and Time Signed: 06/02/2418:41 EDT\.br\Electronically Co-Signed By: Pedro Pablo Fletcher DO.br\Date and Time Co-Signed: 06/04/23 01:40 EDTConsent for Treatmenton 09-79-2303Zewjkea for Treatment [id number]#1.00TIFWyandot Memorial HospitalDischarge Instructionson 00-85-9593Vjbmowcqg Instructions [id number]#1.00TIFFAdena Fayette Medical Center Clinical Summaryon 09-27-7675OO Clinical SummaryNoCincinnati Shriners Hospital Patient Education Noteon 86-77-8135ED Patient Education Note NormalPremier Health [facility] Patient Summaryon 37-75-3210PA Patient SummaryNoProMedica Defiance Regional HospitalAlanine aminotransferase [Enzymatic activity/volume] in Serum or PlasmaOrdered By: Dbe Carmichael on 48-91-6924BQD [Catalytic activity/Vol]14 U/L7-52[facility] Orthopedic CenterAlbumin [Mass/volume] in Serum or Plasma by Bromocresol green (BCG) dye binding metho Ordered By: Deb Carmichael on 60-78-1869Xsjewnq BCG dye [Mass/Vol]4.2 g/dL 3.5-5.7FAdena Health SystemAlkaline phosphatase [Enzymatic activity/volume] in Serum or PlasmaOrdered By: Deb Carmichael on 56-75-0700CSR [Catalytic activity/Vol]69 U/S35-849WijvspcqbCrystal Clinic Orthopedic CenterAspartate aminotransferase [Enzymatic activity/volume] in Serum or PlasmaOrdered By: Deb Carmichael on 78-55-7924EBH [Catalytic activity/Vol]16 U/M75-38TstmyobutCrystal Clinic Orthopedic CenterBasophils Auto (Bld) [#/Vol]Ordered By: Deb Carmichael on 34-93-4839Xwizctcwu (Bld) [#/Vol]0.0 10*3/uL0.0-0.2FAdena Health SystemBasophils/100 WBC Auto (Bld)Ordered By: Deb Carmichael on 06-01-2023 Basophils/100 WBC (Bld)0.4 %.[facility]opedic CenterBilirubin Test strip Ql (U)Ordered By: PROVIDER TEMP on 69-27-8836Jziukgttn Ql (U)Negative NegativeCrystal Clinic Orthopedic CenterBilirubin.direct [Mass/volume] in Serum or PlasmaOrdered By: Deb Carmichael on 57-76-2736Gzknluktj.direct [Mass/Vol] 0.10 mg/dL0.03-0.18FAdena Health SystemBilirubin.total [Mass/volume] in Serum or PlasmaOrdered By: Deb Carmichael on 06-01-2023 Bilirubin [Mass/Vol]0.5 mg/dL0.3-1.0[facility] CenterCalcium [Mass/volume] in Serum or PlasmaOrdered By: Deb Carmichael on 38-77-2454Nexhito [Mass/Vol]9.0 mg/dL8.6-10.3FAdena Health SystemCarbon dioxide, total [Moles/volume] in Serum or PlasmaOrdered By: Deb Carmichael on 06-01-2023 CO2 [Moles/Vol]25.6 mmol/L21.0-31.0[facility] CenterChloride [Moles/volume] in Serum or PlasmaOrdered By: Deb Carmichael on 06-01-2023 Chloride [Moles/Vol]102 mmol/L91-244GhqmyqyvtCrystal Clinic Orthopedic CenterColor Auto (U)Ordered By: PROVIDER TEMP on 78-20-6770Giuwc (U)YellowYellowCrystal Clinic Orthopedic CenterCreatinine [Mass/volume] in Serum or PlasmaOrdered By: Deb Carmichael on 11-90-0874Mxkdogmyzx [Mass/Vol]0.64 mg/dL0.60-1.20[facility] Note-Physicianon 12-47-6535NE Note-PhysicianNormal [facility] HospitalComment on above:Result Comment: Electronically Signed By: Brandon MILES, Robert\.br\Date and Time Signed: 05/30/2417:10 EST\.br\Electronically Co-Signed By: Jorge Mcintosh DO\.br\Date and Time Co- Signed: 06/01/23 07:39 ESTEosinophils Auto (Bld) [#/Vol]Ordered By: Deb Carmichael on 96-65-5068Xwduovnethi (Bld) [#/Vol]0.3 10*3/uL0.0-0.45[facility] CenterEosinophils/100 WBC Auto (Bld)Ordered By: Deb Carmichael on 16-02-0738Hiuabqtvwcg/100 WBC (Bld)2.6 %.[facility] Erythrocyte distribution width Auto (RBC) [Ratio]Ordered By: Deb Carmichael on 78-73-5311Uxwyyjnywqk distribution width (RBC) [Ratio]13.4 %11.9-15.3FAdena Health SystemGlobulin Calc (S) [Mass/Vol]Ordered By: Deb Carmichael on 53-07-2747Monioehp (S) [Mass/Vol]3.7 g/dLCrystal Clinic Orthopedic Center Glucose [Mass/volume] in Serum or PlasmaOrdered By: Deb Carmichael on 31-06-3950Hmjrsyj [Mass/Vol]92 mg/xR68-144HdzupzfehCrystal Clinic Orthopedic Center Comment on above:ADA recommended reference rangeRandom Glucose Reference Range is dependent on time and content of last meal. Glucose of more than 200 mg/dL in a nonstressed, ambulatory subject supports the diagnosisof Diabetes Mellitus. Hematocrit Auto (Bld) [Volume fraction]Ordered By: Deb Carmichael on 06-01-2023 Hematocrit (Bld) [Volume fraction]44.7 %34.0-46.4FAdena Health SystemHemoglobin [Mass/volume] in BloodOrdered By: Deb Carmihcael on 06-01-2023 Hemoglobin (Bld) [Mass/Vol]15.1 g/dL11.8-15.4FAdena Health System Ketones Auto test strip (U) [Mass/Vol]Ordered By: MOLLY KURTZ on 06-01-2023 Ketones (U) [Mass/Vol]NegativeNegativeCrystal Clinic Orthopedic Center Leukocytes [#/volume] corrected for nucleated erythrocytes in Blood by Automated counOrdered By: Deb Carmichael on 04-64-3734LYJ corrected for nucl RBC Auto (Bld) [#/Vol]10.7 10*3/uL3.8-11.6FAdena Health SystemLipase [Enzymatic activity/volume] in Serum or PlasmaOrdered By: Deb Carmichael on 02-38-8241Jatwej [Catalytic activity/Vol]13.0 U/L11.0-82.0[facility] CenterLymphocytes Auto (Bld) [#/Vol]Ordered By: Deb Carmichael on 80-00-8853Wvivsobbtky (Bld) [#/Vol]3.2 10*3/uL1.00-4.8[facility] CenterLymphocytes/100 WBC Auto (Bld)Ordered By: Deb Carmichael on 06-01-2023 Lymphocytes/100 WBC (Bld)30.4 %.[facility] CenterMCH Auto (RBC) [Entitic mass]Ordered By: Deb Carmichael on 40-70-6557YFK (RBC) [Entitic mass] 31.8 pg24.7-34.3FAdena Health SystemMCHC Auto (RBC) [Mass/Vol] Ordered By: Deb Carmichael on 83-16-7013SUQN (RBC) [Mass/Vol]33.9 g/dL32.0-35.0 [facility] CenterMCV Auto (RBC) [Entitic vol]Ordered By: Deb Carmichael on 54-20-3982NMZ (RBC) [Entitic vol]94.0 xE96-341QsngwjcpyCrystal Clinic Orthopedic CenterMonocyte distribution width [Entitic volume] in Blood by AutomatedOrdered By: Deb Carmichael on 92-35-7799Eknbiery distribution width Auto (Bld) [Entitic vol]18.80 %0.00-20.00[facility] Monocytes Auto (Bld) [#/Vol]Ordered By: Deb Carmichael on 70-00-5901Angtkhwyp (Bld) [#/Vol]0.6 10*3/uL0.0-0.8[facility] CenterMonocytes/100 WBC Auto (Bld)Ordered By: Deb Carmichael on 42-72-2769Glyuipnmg/100 WBC (Bld) 6.0 %.[facility] CenterNeutrophils Auto (Bld) [#/Vol]Ordered By: Deb Carmichael on 40-97-8021Gsagkzllvlw (Bld) [#/Vol]6.5 10*3/uL1.8-7.7 [facility] CenterNeutrophils/100 WBC Auto (Bld)Ordered By: Deb Carmichael on 67-03-4686Nubbptjmhbg/100 WBC (Bld)60.6 %.[facility] CenterNitrite Test strip Ql (U)Ordered By: PROVIDER TEMP on 06-01-2023 Nitrite Ql (U)NegativeNegativeCrystal Clinic Orthopedic CenterNo Panel InformationOrdered By: Deb Carmichael on 75-43-5306Rmnintdmd GFR (CKD-EPI)> 60.0 mL/MinCrystal Clinic Orthopedic CenterPharmacy Creatinine Clearance (Chem 122.15[facility] CenterNucleated erythrocytes [Presence] in Blood by Automated countOrdered By: Deb Carmichael on 56-02-6141Cjmeoscwn RBC Auto Ql (Bld)0.1 /100{WBC}0-0.5FAdena Health SystemPlatelet mean volume Auto (Bld) [Entitic vol]Ordered By: Deb Carmichael on 78-87-0464Xvgrzzkd mean volume (Bld) [Entitic vol]9.0 fL6.3-10.7FAdena Health System Platelets Auto (Bld) [#/Vol]Ordered By: Deb Carmichael on 99-69-0729Kocnqnatp (Bld) [#/Vol]311 10*3/fQ650-300QddyjivleCrystal Clinic Orthopedic CenterPotassium [Moles/volume] in Serum or PlasmaOrdered By: Deb Carmichael on 06-01-2023 Potassium [Moles/Vol]4.2 mmol/L3.5-5.1FAdena Health SystemProtein Auto test strip (U) [Mass/Vol]Ordered By: PROVIDER TEMP on 48-29-0677Rzdmqhx (U) [Mass/Vol]NegativeNegativeCrystal Clinic Orthopedic CenterProtein [Mass/volume] in Serum or PlasmaOrdered By: Deb Carmichael on 37-77-5499Wqzgkvn [Mass/Vol]7.9 g/dL6.4-8.9[facility] CenterRBC Auto (Bld) [#/Vol]Ordered By: Deb Carmichael on 94-73-0011WWP (Bld) [#/Vol]4.75 10*6/uL 3.60-5.00[facility]tering Health Hamiltonerum or plasma albumin/globulin mass ratioOrdered By: Deb Carmichael on 90-47-4697Cajlmka/Globulin [Mass ratio]1.1 {ratio}[facility] Health Hamiltonerum or plasma anion gap determination Ordered By: Deb Carmichael on 01-90-2436Qmlpf gap [Moles/Vol][facility] InstituteComment on above:Test not performedSerum or plasma non- glucuronidated bilirubin measurement (mass/volume)Ordered By: Deb Carmichael on 67-73-8220Ehihlpejm.indirect [Mass/Vol][facility] Comment on above:Test not performedSodium [Moles/volume] in Serum or Plasma Ordered By: Deb Carmichael on 54-32-9566Gchixr [Moles/Vol]136 mmol/R447-752 [facility] Hamiltonpecific gravity Auto test strip (U) [Rel density]Ordered By: MOLLY KURTZ on 35-87-6150Itnfsvas gravity (U) [Rel density]1.0151.001-1.030[facility] CenterTroponin I.cardiac [Mass/volume] in Serum or Plasma by Detection limit <= 0.01 ng/Ordered By: Deb Carmichael on 27-95-1350Njytlgbj I.cardiac DL <= 0.01 ng/mL [Mass/Vol]3.5 pg/mL0.0-15.0[facility] CenterUrea nitrogen [Mass/volume] in Serum or PlasmaOrdered By: Deb Carmichael on 46-37-5736Ulyt nitrogen [Mass/Vol] 18 mg/dL7-25[facility] CenterUrine clarity by refractometry automatedOrdered By: MOLLY KURTZ on 30-44-0150Ptplcsz Refractometry automated (U)ClearClearFAdena Health SystemUrine glucose measurement by automated test strip (mass/volume)Ordered By: PROVIDER TEMP on 13-95-7182Aoqtgte Auto test strip (U) [Mass/Vol]Normal mg/dLNoUniversity Hospitals Samaritan Medical CenterUrine hemoglobin detection by automated test stripOrdered By: PROVIDER TEMP on 37-13-5681Ukmbunvege Auto test strip Ql (U)NegativeNegRiverview Health InstituteUrine leukocyte esterase detection by automated test stripOrdered By: PROVIDER TEMP on 76-87-1713Rcysdmgao esterase Auto test strip Ql (U)NegativeNegRiverview Health InstituteUrobilinogen Auto test strip (U) [Mass/Vol]Ordered By: PROVIDER TEMP on 66-72-0581Gweqmaapnnbn (U) [Mass/Vol]Normal mg/dLNoUniversity Hospitals Samaritan Medical CenterWBC Auto (Bld) [#/Vol]Ordered By: Deb Carmichael on 01-65-4558PLE (Bld) [#/Vol]10.7 10*3/uL 3.8-11.6FAdena Health SystempH Auto test strip (U)Ordered By: PROVIDER TEMP on 02-51-1469nH (U)7.0 [pH]5.0-9.0[facility] CenterBMPOrdered By: SYSTEM SYSTEM on 74-06-5604Ljada gap [Moles/Vol]11 mmol/L Normal6-16Remisol ChemComment on above:Performed By: #### 61689161, 5458798, 9563421, 3471030, 2007696, 87489506 ####[facility] [address] [place], [place] [address]Bhvvndn [Mass/Vol]9.0 mg/dLNormal 8.9-11.1Remisol ChemComment on above:Performed By: #### 37194849, 2508686, 2744844, 0346636, 5888815, 06642011 ####[facility] [address] [place], [place] [address]Bbbzmbfh [Moles/Vol]104 mmol/LNormal 101-111Remisol ChemComment on above:Performed By: #### 88151290, 0386669, 3144241, 0439006, 1585418, 74272028 ####[facility] [address] [place], [place] [address]YN8 [Moles/Vol]27 mmol/QLoqemi91-85 Remisol ChemComment on above:Performed By: #### 24675473, 5177748, 5989005, 3907322, 6386583, 17134775 ####[facility] [address] [place], [place] [address]Owvlzqlpjz [Mass/Vol]0.7 mg/dLNormal0.5-1.3Remisol ChemComment on above:Performed By: #### 40069850, 8161367, 2149583, 1132227, 7856256, 43694648 ####[address] [address]Movdznd [Mass/Vol]97 mg/mTAuntww41-459Qazqugz ChemComment on above:Performed By: #### 48994134, 6039599, 4140446, 0193125, 7398869, 50706456 ####[address] [address] Potassium [Moles/Vol]3.7 mmol/LNormal3.5-5.3Remisol ChemComment on above: Performed By: #### 24393207, 3773526, 6691917, 0948943, 3740667, 54933985 ####[address] [place] [address] Sodium [Moles/Vol]138 mmol/APbwnxy090-245Nfmahyi ChemComment on above:Performed By: #### 63842767, 4268782, 6089938, 7247505, 9447953, 13502373 ####[facility] [address] [place], [place] [address]Anwz nitrogen [Mass/Vol]15 mg/dLNormal5-21Remisol ChemComment on above:Performed By: #### 51905460, 8744537, 3414076, 2785801, 2117716, 58967012 ####[address] [address]NSGrx 68-64-3216Dghz nitrogen/Creatinine [Mass ratio]21 No LbuyiWatv58-33Xyxjne [facility] Comment on above:Performed By: #### 71878929, 4153436, 7011212, 8211023, 2665785, 08358842 ####[address] [address]IYV w/ Auto DiffOrdered By: SYSTEM SYSTEM on 05-31-2023 Basophils/100 WBC (Bld)0.5 %Normal0.0-2.0Remisol HemeComment on above:Performed By: #### 86476468, 4176981, 6361071, 6122327, 7436685, 96257223 ####[address] [address]Yvpguysrp/Leukocytes Auto (Bld) [Pure # fraction]0.1 E9/LNormal0.0-0.2Remisol HemeComment on above: Performed By: #### 62501915, 2046068, 2640490, 0478315, 2967887, 37929646 ####[address] [address] Eosinophils (Bld) [#/Vol]0.2 E9/LNormal0.0-0.5Remisol HemeComment on above: Performed By: #### 07076368, 1101086, 8439384, 0942424, 0511890, 53188525 ####[address] [address] Eosinophils/100 WBC (Bld)2.1 %Normal0.0-8.0Remisol HemeComment on above: Performed By: #### 65777839, 8552679, 2844924, 0725853, 7274468, 60077314 ####[address] [address] Erythrocyte distribution width (RBC) [Ratio]13.4 %Bumeaa53.9-14.2Remisol Heme Comment on above:Performed By: #### 35951409, 1370460, 6255745, 3199901, 6600659, 42673938 ####[address] [address]Ivzcchdcrk (Bld) [Volume fraction]41.8 %Hxfeph36.0-46.0 Remisol HemeComment on above:Performed By: #### 40408747, 4575526, 3339323, 1181638, 1238759, 13207881 ####[address] [address]Qugiszzaoq (Bld) [Mass/Vol]13.9 g/wMAqcvxk78.0-16.0 Remisol HemeComment on above:Performed By: #### 20615795, 5922063, 7565503, 3360611, 0104159, 17459828 ####[address] [address]Qzegsevrwni (Bld) [#/Vol]3.6 E9/LNormal1.0-4.0 Remisol HemeComment on above:Performed By: #### 37530030, 4098659, 6082485, 4039966, 5930853, 40635961 ####[address] [address]Otanqnjrzcd/100 WBC (Bld)32.1 %Varsqq80.0-50.0 Remisol HemeComment on above:Performed By: #### 79547266, 8961632, 3273211, 4213622, 1299104, 41247283 ####[address] [address]CFM (RBC) [Entitic mass]31.4 awErnvqa89.0-34.0 Remisol HemeComment on above:Performed By: #### 21476769, 9692211, 6809687, 4100241, 5827501, 86403445 ####[address] [address]JMNA (RBC) [Mass/Vol]33.3 g/vRDflodf73.4-36.0 Remisol HemeComment on above:Performed By: #### 01275106, 2743524, 6428793, 9589309, 5175658, 15141784 ####[address] [address]QQK (RBC) [Entitic vol]94.1 bRDzmdsr75.0-100.0 Remisol HemeComment on above:Performed By: #### 77761746, 2102113, 3546228, 2575573, 2159912, 69442380 ####[address] [address]Belzaufnw (Bld) [#/Vol]0.6 E9/LNormal0.2-1.0Remisol HemeComment on above:Performed By: #### 09605031, 0526466, 2631081, 2836825, 0781136, 03147742 ####[address] [address]Wlicvueeyda (Bld) [#/Vol]6.8 E9/LNormal2.0-7.5Remisol Heme Comment on above:Performed By: #### 48877674, 2598295, 1166229, 7977439, 3095244, 95561949 ####[address] [address]Dqgbjlccjxe/100 WBC (Bld)59.6 %Ckevzb66.0-75.0Remisol Heme Comment on above:Performed By: #### 90059298, 0529065, 9255045, 0667103, 3914072, 30017676 ####[address] [address]Bbonigxw mean volume (Bld) [Entitic vol]9.2 fLNormal6.4-10.8 Remisol HemeComment on above:Performed By: #### 17809409, 9513542, 3870953, 5491804, 2430203, 15037774 ####[facility] [address] [place], [place] [address]Puoxwrvwq (Bld) [#/Vol]271.0 E9/NMwivld620.0-500.0 Remisol HemeComment on above:Performed By: #### 97319816, 5382088, 8102046, 0816073, 5006014, 74665047 ####[facility] [address] [place], [place] [address]KDX (Bld) [#/Vol]4.4 E12/LNormal4.3-5.9Remisol Heme Comment on above:Performed By: #### 35523947, 2302116, 3531781, 6623377, 7795362, 61803723 ####[facility] [address] [place], [place] [address]UAP corrected for nucl RBC Auto (Bld) [#/Vol]11.4 E9/LHigh 4.0-11.0Remisol HemeComment on above:Performed By: #### 88100390, 7699112, 8734827, 2389572, 7886274, 04994288 ####[facility] [address] [place] [address]FLDHNNFLFJwlwpwf By: SYSTEM SYSTEM on 46-90-6319Hqpbsnv/Globulin [Mass ratio]1.3 {ratio}Normal1.1 - 2.2Remisol Chem ALP [Catalytic activity/Vol]72 [iU]/hQiejpd49 - 98 Int._Unit/LRemisol ChemALT No additional P-5'-P [Catalytic activity/Vol]13 [iU]/dNormal6 - 46 Int._Unit/L Remisol ChemAST [Catalytic activity/Vol]14 [iU]/dNormal5 - 43 Int._Unit/LRemisol ChemUrea nitrogen/Creatinine [Mass ratio]21 mg/shWafy01 - 20Remisol Chem COAGULATIONOrdered By: Zoë Joyce on 53-61-3869iKTL Coag (PPP) [Time]33.3 sNormal 25.1 - 36.5 second(s)[facility] Auto CoagComment on above:Interpretive Data: Parameter 15 days - 4 weeks 1 - [...] the same coagulation reagent and instrumentation as [facility]. Currently there are no coagulation studies available worldwide for children to 14 days, andno normal ranges. Heparin therapeutic range (represented by Anti-Factor Xa activity of 0.2 - 0.4 U/mL) corresponds to PTT of 56.6 - 109.0 sec.PT Coag (PPP) [Time]10.8 sNormal9.4 - 12.5 second(s)[facility] Auto CoagComment on above:Interpretive Data: 15 days - 4 weeks 1 - [...] the same coagulation reagent and instrumentation as [facility]. Currently there are no coagulation studies available worldwide for children to 14 days, andno normal ranges.Consent for Treatmenton 85-55-6995Okefwib for Treatment [id number]#1.00TIFWyandot Memorial HospitalDischarge Instructionson 70-82-6049Xmpmsgfov Instructions [id number]#1.00TIFFAdena Fayette Medical Center Clinical Summaryon 62-20-9100UR Clinical SummaryNormOhio State [facility] Patient Education Noteon 00-59-1478QO Patient Education Note NormalPremier Health [facility] Patient Summaryon 70-14-4213DT Patient SummaryNormUniversity Hospitals Geauga Medical CenterHEMATOLOGYOrdered By: SYSTEM SYSTEM on 38-65-3691Jckrriwut/100 WBC (Bld)5.7 %Normal4.0 - 14.0 %Remisol HemeHep Func PanelOrdered By: SYSTEM SYSTEM on 30-55-0749Gygstts [Mass/Vol]4.1 g/dLNormal 3.3-5.0Remisol ChemComment on above:Performed By: #### 80147248, 9625972, 7229849, 1473577, 8656530, 75122533 ####[facility] [address] [place], [place] [address]Fetbwdsbz [Mass/Vol]0.4 mg/dLNormal 0.0-1.1Remisol ChemComment on above:Performed By: #### 68773793, 8063840, 3507194, 9168452, 6445392, 92701637 ####[facility] [address] [place], [place] [address]Ozunnlxjr.direct [Mass/Vol]0.1 mg/dL Normal0.0-0.4Remisol ChemComment on above:Performed By: #### 01766240, 9018780, 1899025, 4172571, 8314389, 47481907 ####[facility] [address] [place], [place] [address]Iqutgxkcl.indirect [Mass or moles/Vol]0.3 mg/dLNormal0.1-0.9Remisol ChemComment on above:Performed By: #### 11726500, 6894190, 0449103, 5547025, 3962549, 29399541 ####[facility] [address] [place], [place] [address]Akfjyeyt (S) [Mass/Vol]3.1 g/dLNormal1.4-4.0Remisol ChemComment on above:Performed By: #### 70517341, 7058180, 1621501, 0821369, 9604366, 38600193 ####[address] [place], [place] [address]Tldlpxp [Mass/Vol]7.2 g/dLNormal 6.0-7.8Remisol ChemComment on above:Performed By: #### 22128025, 5392923, 6336135, 5840733, 6427568, 42650079 ####[address] [address]Jzn Func Panelon 05-31-2023 Albumin/Globulin (S) [Mass conc ratio]1.4Rxztpn6.1-2.2[facility] Trauma CenterComment on above:Performed By: #### 25419646, 6872825, 9490864, 4403407, 1343947, 25293711 ####[address] [address]MMK [Catalytic activity/Vol]72 Int._Unit/FLvmxfh13-39IuiiliOhiohealth Berger HospitalComment on above:Performed By: #### 69843705, 2412071, 8857759, 3510392, 7637721, 32456453 ####[address] [place], [place] [address]AHV No additional P-5'-P [Catalytic activity/Vol]13 Int._Unit/LNormal6-46[facility] HospitalComment on above:Performed By: #### 75406047, 3494140, 6614872, 7714250, 6099649, 27019872 ####[address] [address]KOD [Catalytic activity/Vol]14 Int._Unit/LNormal5-43[facility] Comment on above:Performed By: #### 22434975, 8701007, 0599092, 9771567, 2158142, 50630406 ####[facility] [address] [facility], [place] [address]Gajwjl LevelOrdered By: SYSTEM SYSTEM on 77-83-2503Xlvelh [Catalytic activity/Vol]10 U/OCwe84-30Gbqtuot ChemComment on above:Performed By: #### 97946347, 9852189, 4013410, 8244604, 2322861, 99199243 ####[facility] [address] [facility] [place] [place] [address]XZ & PTTon 05-31-2023 aPTT Coag (PPP) [Time]33.3 second(s)Zcvenm04.1-36.5FClermont County Hospital Comment on above:Result Comment: Parameter 15 days - 4 weeks 1 - 5 months 6 - 11 months 1 - 5 years 6 - 10 years 11 - 17 years PTT Mean: 35.4 (27.6-45.6) Mean: 33.5 (24.8-40.7) Mean: 32.4 (25.1-40.7) Mean: 31.6 (24.0-39.2) Mean: 31.6 (26.9- 38.7) Mean: 31.0 (24.6-38.4) Pediatric Reference ranges were obtained from a study by Chidi Valera et al. prepared from 1437 samples obtained at 7 different centers using theNeohapsis coagulation reagent and instrumentation as [facility]. Currently there are no coagulation studies available worldwide for children to 14 days, and no normal ranges. Heparin therapeutic range (represented by Anti-Factor Xa activity of 0.2 - 0.4 U/mL) corresponds to PTT of 56.6 - 109.0 sec.Performed By: #### 80209104, 8412794, 8151624, 3544660, 9163160, 44663802 ####[facility] [address] AveNbridge[address] hospit[place], [place] [address]BK Coag (PPP) [Time]10.8 second(s)Normal9.4-12.5FClermont County HospitalComment on above:Result Comment: 15 days - 4 weeks 1 - 5 months 6 -11 months 1 ? 5 years 6 ? 10 years 11 -17 years Mean: 11.2 (9.5 ? 12.6) Mean: 11.0 (9.7 ? 12.8) Mean: 11.0 (9.8 ? 13.0) Mean: 11.3 (9.9 ? 13.4) Mean:11.7 (10.0 ? 14.6) Mean: 11.8 (10.0 - 14.1) Pediatric Reference ranges were obtained from a study by Chidi Valera et al. prepared from 1437 samples obtained at 7 different centers using the same coagulation reagent and instrumentation as [facility]. Currently there are no coagulation studies available worldwide for children to 14 days, and no normal ranges.Performed By: #### 69534257, 5490798, 0977346, 9820128, 3823158, 54340611 ####[facility] [address] [place], [place] [address]VC & PTTOrdered By: Zoë Joyce on 45-70-1101ZJK Coag (PPP) [Relative time] 0.96 {INR}Invalid Interpretation CodeHARPER COUNTY COMM[facility] Auto CoagComment on above:Interpretive Data: INR results are specifically intended to assess patients stabilized on long-term Anticoagulation therapy suggested INR s Less Intensive Anticoagulation 2.0 3.0 Conventional Range 3.0 4.5Result Comment: INR results are specifically intended to assess patients stabilized on long-term Anticoagulation therapy suggested INR?s ?Less Intensive Anticoagulation? 2.0 ? 3.0Conventional Range 3.0 ? 4.5 Performed By: #### 41937620, 9765237, 6641463, 1065065, 2346310, 46267975 ####[facility] [address] [place], [place] [address]OS With Cult Reflexon 84-84-8128Njdvpfbj LM Ql (Urine sed)TRACENormalTraceOhiohealth Berger HospitalComment on above:Performed By: #### [id number] ####[facility] [address] [place], [place] [address]Tyeuntvuw Ql (U) NegativeNormalNegativeOhiohealth Berger HospitalComment on above:Performed By: #### [id number] ####[facility] [address] [place] [address]Wtcgnyw (U)CLOUDYAbnormalClearFClermont County HospitalComment on above:Performed By: #### [id number] ####[address] [address]Aptmi (U)YELLOWNormalYellowOhiohealth Berger HospitalComment on above:Performed By: #### [id number] ####[facility] [address] [place] [address]Amdpkkql LM Ql (Urine sed) PresentNoProMedica Defiance Regional HospitalComment on above:Performed By: #### [id number] ####[address] [address]Pusggounxo cells.squamous LM.HPF (Urine sed) [#/Area]6-4Snzait2-0VenkhhClermont County HospitalComment on above:Performed By: #### [id number] ####[address] [address]Jduuolp Test strip (U) [Mass/Vol]NegativeNormalNegKindred Hospital DaytonComment on above:Performed By: #### [id number] ####[address] [address]Lrlwzjuyoz Ql (U)NegativeOhioHealth Shelby HospitalComment on above:Performed By: #### [id number] ####[address] [address]Cbkhvbv (U) [Mass/Vol] NegativeNormalNegKindred Hospital DaytonComment on above:Performed By: #### [id number] ####[address] [address]Wnxaxyb.plasma/[place].RBC (Bld) [Mass ratio]4-2Asmnjw8-4UbdnhbClermont County HospitalComment on above:Performed By: #### [id number] ####[address] [address]Rygozyw Ql (U)Negative NormalNegativeOhiohealth Berger HospitalComment on above:Performed By: #### [id number] ####[address] [address]gL (U)8.0 [pH]Invalid Interpretation Code5.0-9.0[facility] Comment on above:Performed By: #### [id number] ####[address] [address]Oafkmyp (U) [Mass/Vol]NegativeNormal NegativeOhiohealth Berger HospitalComment on above:Performed By: #### [id number] ####[address] [address] Specific gravity (U) [Rel density]1.015Invalid Interpretation Code1.005-1.030 [facility] HospitalComment on above:Performed By: #### [id number] ####[address] [address]Llfr of Urine collection methodClean CatchNormalOhiohealth Berger HospitalComment on above:Performed By: #### [id number] ####[address] [address]Lgqhkmahbdgz Qn (U)0.2 {Jan'U}/dLNormal0.0-1.0 [facility] HospitalComment on above:Performed By: #### [id number] ####[address] [address]DZD Auto Ql (U)NegativeNormalNegativeOhiohealth Berger HospitalComment on above: Performed By: #### [id number] ####[address] [address]YBF LM.HPF (Urine sed) [#/Area]3-6Ruqoec3-3JefsouClermont County HospitalComment on above:Performed By: #### [id number] ####[address], [place] [address]XMBGEEQQGA Ordered By: Zoë Case on 19-83-1485Mramoqqf LM Ql (Urine sed)Trace /HPFNormal Trace/HPFHARPER [facility] Auto SSBilirubin Ql (U)Negative (05/31/23 4:53 PM)NormalNegativeHARPER [facility] Auto SSClarity (U)Cloudy *ABN* (05/31/23 4:53 PM)Invalid Interpretation CodeClearFLAWT[facility] UA Auto SSColor (U)Yellow (05/31/23 4:53 PM)NormalYellowHARPER COUNTY [facility] UA Auto SSCrystals LM Ql (Urine sed)Present (05/31/23 4:53 PM)NormalHARPER COUNTY [facility] Auto SSEpithelial cells.squamous LM.HPF (Urine sed) [#/Area]0-2 /HPFNormal0-2/HPFHARPER [facility] UA Auto SSGlucose Test strip (U) [Mass/Vol]Negative (05/31/23 4:53 PM)NormalNegativeHARPER [facility] Auto SSHemoglobin Ql (U)Negative (05/31/23 4:53 PM)NormalNegativeHARPER [facility] Auto SSKetones (U) [Mass/Vol]Negative (05/31/23 4:53 PM)NormalNegativeHARPER [facility] UA Auto SSLithium.plasma/[place].RBC (Bld) [Mass ratio]0-3 /HPFNormal0-3/HPFHARPER [facility] U[facility] Auto SSNitrite Ql (U)Negative (05/31/23 4:53 PM)NormalNegativeHARPER [facility] Auto SSpH (U)8.0 *NA* (05/31/23 4:53 PM)Invalid Interpretation Code5.0 - 9.0[facility] Auto SSProtein (U) [Mass/Vol]Negative (05/31/23 4:53 PM)NormalNegativeHARPER [facility] Auto SSSpecific gravity (U) [Rel density] 1.015 *NA* (05/31/23 4:53 PM)Invalid Interpretation Code1.005 - 1.030[facility] UA Auto SSUA Spec DescClean Catch (05/31/23 4:53 PM)NormalHARPER COUNTY [facility] Auto SSUrobilinogen Qn (U)0.5039706 {Jan'U}/dL Normal0.0 - 1.0 EU/dLHARPER COUNTY [facility] Auto SSWBC Auto Ql (U)Negative (05/31/23 4:53 PM)NormalNegativeHARPER [facility] Auto SSWBC LM.HPF (Urine sed) [#/Area]0-5 /HPFNormal0-5/HPFHARPER [facility] Auto SSeGFROrdered By: SYSTEM SYSTEM on 61-22-3351rKSG 108 mL/min/1.73 o5Oxbmym>=59Remisol ChemComment on above:Order Comment: Order added by Discern Expert.Performed By: #### [id number], 9253908, 3676599, 2366514, 3252531, [id number] ####[address] [place], [place] [address]FE Note-Physicianon 91-70-9287KJ Note-PhysicianNewark HospitalComment on above:Result Comment: Electronically Signed By: Susu Lamar PA-C\.br\Date and Time Signed: 05/26/23 21:33 EST\.br\Electronically Co-Signed By: Pedro Pablo Fletcher DO\.br\Date and Time Co- Signed: 05/27/2399:01 ESTConsent for Treatmenton 04-70-0019Squhaxq for Treatment [id number]#1.00TIFFNoTriHealth CenterED Clinical Summaryon 00-65-7984EG Clinical SummaryNormalOhiohealth Van [facility] Hospital Medical CenterED Patient Education Noteon 75-49-3868GK Patient Education Note NormalPremier Health Miami [facility] North Patient Summaryon 06-17-6449VR Patient SummaryNormUniversity Hospitals Geauga Medical CenterUA With Cult Reflexon 05-26-2023 Bilirubin Ql (U)NegativeNormalNegativeOhiohealth Berger HospitalComment on above:Performed By: #### [id number] ####[facility] [address] [place], [place] [address]Qlcbrdm (U)CLEARNormalClearOhiohealth Berger HospitalComment on above:Performed By: #### [id number] ####[address] [address]Uihfr (U)YELLOWNormalYellow [facility] HospitalComment on above:Performed By: #### [id number] ####[address] [address] Epithelial cells.squamous LM.HPF (Urine sed) [#/Area]3-6Ufnhhi2-2Btpvzs [facility] Trauma CenterComment on above:Performed By: #### [id number] ####[address] [address]Agzxutx Test strip (U) [Mass/Vol]NegativeNormalNegativeOhiohealth Berger HospitalComment on above: Performed By: #### [id number] ####[address] [address]Iqybfrophw Ql (U)NegativeNormalNegativeOhiohealth Berger HospitalComment on above:Performed By: #### [id number] ####[address] [address]Hpigfev (U) [Mass/Vol] NegativeNormalNegativeOhiohealth Berger HospitalComment on above:Performed By: #### [id number] ####[address] [address]Wbsxexz.plasma/[place]arks[place].RBC (Bld) [Mass ratio]9-0Selyjg8-9Fcyshi [facility] Shock Trauma CenterComment on above:Performed By: #### [id number] ####[address] [address]Ifdhuax Ql (U)Negative NormalNegativeOhiohealth Berger HospitalComment on above:Performed By: #### [id number] ####[address] [address]gS (U)6.5 [pH]Invalid Interpretation Code5.0-9.0[facility] Comment on above:Performed By: #### [id number] ####[address] [address]Mrxvnia (U) [Mass/Vol]NegativeNormal NegativeOhiohealth Berger HospitalComment on above:Performed By: #### [id number] ####[place] [address] [address] Specific gravity (U) [Rel density]1.020Invalid Interpretation Code1.005-1.030 [facility] HospitalComment on above:Performed By: #### [id number] ####[address] [address]Cihc of Urine collection methodClean CatchNormalOhiohealth Berger HospitalComment on above:Performed By: #### [id number] ####[address] [address]Vxlkjmhdhxsk Qn (U)0.2 {Jan'U}/dLNormal0.0-1.0 [facility] HospitalComment on above:Performed By: #### [id number] ####[address] [address]UFT Auto Ql (U)NegativeNormalNegativeOhiohealth Berger HospitalComment on above: Performed By: #### [id number] ####[address] [address]PRR LM.HPF (Urine sed) [#/Area]8-6Tqaabx1-4Mtjadp [facility] Trauma CenterComment on above:Performed By: #### [id number] ####[address] [address]ZYEUIOYJPH Ordered By: Raquel Hernandez on 39-83-3959Lvsupsptp Ql (U)Negative (05/26/23 8:20 PM)NormalNegativeH[facility] UA Auto SSClarity (U)Clear (05/26/23 8:20 PM)NormalClearFLAWT[facility] UA Auto SSColor (U)Yellow (05/26/23 8:20 PM)NormalYellowHARPER COUNTY [facility] Auto SSEpithelial cells.squamous LM.HPF (Urine sed) [#/Area]0-2 /HPFNormal0-2/HPFHARPER [facility] [place] UA Auto SSGlucose Test strip (U) [Mass/Vol]Negative (05/26/23 8:20 PM)NormalNegativeHARPER [facility] Auto SSHemoglobin Ql (U)Negative (05/26/23 8:20 PM)NormalNegativeHARPER [facility] [place] Auto SSKetones (U) [Mass/Vol]Negative (05/26/23 8:20 PM)NormalNegativeHARPER [facility]A Auto SSLithium.plasma/[place].RBC (Bld) [Mass ratio]0-3 /HPFNormal0-3/HPFHARPER COUNTY [facility] Auto SSNitrite Ql (U)Negative (05/26/23 8:20 PM)NormalNegativeHARPER [facility] Auto SSpH (U)6.5 *NA* (05/26/23 8:20 PM)Invalid Interpretation Code5.0 - 9.0[facility]A Auto SSProtein (U) [Mass/Vol]Negative (05/26/23 8:20 PM)NormalNegativeHARPER [facility] Auto SSSpecific gravity (U) [Rel density] 1.020 *NA* (05/26/23 8:20 PM)Invalid Interpretation Code1.005 - 1.030[facility] UA Auto SSUA Spec DescClean Catch (05/26/23 8:20 PM)NormalHARPER COUNTY COMM[facility] Auto SSUrobilinogen Qn (U)0.7377800 {Jan'U}/dL Normal0.0 - 1.0 EU/dLHARPER COUNTY COMM[facility]ITY [facility] [place] UA Auto SSWBC Auto Ql (U)Negative (05/26/23 8:20 PM)NormalNegativeH[facility]PER [facility] Auto SSWBC LM.HPF (Urine sed) [#/Area]0-5 /HPFNormal0-5/HPFHARPER [facility] Auto SSED Note-Physicianon 15-72-5951RM Note-Physician Newark HospitalComment on above:Result Comment: Electronically Signed By: Landon Tidwell PA-C\.br\Date and Time Signed: 05/23/2422:15 EST\.br\Electronically Co-Signed By: Pedro Pablo Fletcher DO.br\Date and Time Co- Signed: 05/25/23 01:59 ESTXR Spine Lumbosacral 2 or 3 Viewson 76-58-4667GH Spine Lumbosacral 2 or 3 ViewsNoProMedica Defiance Regional HospitalConsent for Treatment on 83-06-9407Cevbeno for Treatment [id number]#1.00TIFWyandot Memorial HospitalDischarge Instructionson 24-12-0887Olklcrslt Instructions [id number]#1.00TIFMercy Health Allen Hospital Clinical Summaryon 37-61-2876TF Clinical SummaryNoCincinnati [facility] Patient Education Noteon 34-58-4859KG Patient Education Note [facility] Patient Summaryon 63-69-1898FC Patient SummaryNoProMedica Defiance Regional HospitalHand / UE Inj/Asp: R thumb CMCon 20-96-6123Bbddk M Ciaccia, DO 05/20/2023 9:07 AM Hand / UE [...] to verify the correct patient, procedure, equipment, patient support assistant and site/side marked as required. Patient was prepped and draped in the usual sterile fashion. [facility] Work Phone: [facility]: ED Note-Physicianon 57-32-1867BQ Note-PhysicianMccullough-Hyde Memorial HospitalComment on above:Result Comment: Electronically Signed By: Robert Taylor PA-C\.br\Date and Time Signed: 05/14/2410:56 EST\.br\Electronically Co-Signed By: Jorge Mcintosh DO\.br\Date and Time Co- Signed: 05/17/23 08:07 ESTJail Documentson 20-89-3374Yqnr Documents [id number]#1.00TIFWyandot Memorial HospitalConsent for Treatmenton 70-83-0058Aonetop for Treatment [id number]#1.00TIFWyandot Memorial HospitalDischarge Instructionson 77-54-4722Ajdkjlozh Instructions [id number]#1.00TIFMercy Health Allen Hospital Clinical Summaryon 85-21-9903DY Clinical SummaryNoTriHealth CenterED Note-Physicianon 98-52-0827FJ Note-[facility] Rita's HospitalComment on above:Result Comment: Electronically Signed By: Robert Taylor PA-C\.br\Date and Time Signed: 05/16/2415:54 EST\.br\Electronically Co-Signed By: Nikhil Tubbs DO\.br\Date and Time Co- Signed: 05/16/2416:00 ESTED Patient Education Noteon 59-84-7569FT Patient Education NoteNormBennett Ferreiraus Medical CenterED Patient Summaryon 79-20-7914EF Patient SummaryNormBennett R [facility] Shock Trauma CenterConsent for Treatmenton 29-77-2190Fgabzhr for [id number]#1.00TIFF Michelet [facility] Shock Tra[facility] CenterDischarge Instructionson 59-50-9986Kvunavgzf [id number]#1.00TIFFNormBennett Ferreiraus Medical CenterED Clinical Summaryon 33-36-4493ZZ Clinical SummaryNormal [facility] Patient Education Noteon 88-03-7851RS Patient Education NoteNormBennett Ferreiraus Medical CenterED Patient Summaryon 03-14-5579WC Patient SummaryNormBennett Pollock Medical CenterED Note-Physicianon 05-13-2023 ED Note-PhysicianNewark HospitalComment on above:Result Comment: Electronically Signed By: Landon Tidwell PA-C.br\Date and Time Signed: 05/11/2416:24 EST\.br\Electronically Co-Signed By: Belia Mcintosh DO.br\Date and Time Co-Signed: 05/13/23 07:06 ESTConsent for Treatmenton 88-36-3616Vkadiou for [id number]#1.00TIFF JamesOhiohealth Berger HospitalDischarge Instructionson 93-11-3657Llzlevtln [id number]#1.00TIFFMichelet Pollock Medical CenterED Clinical Summaryon 43-82-7470NW Clinical SummaryNormBennett Pollock Medical CenterED Note-Physicianon 21-06-2261OT Note-PhysicianNewark HospitalComment on above:Result Comment: Electronically Signed By: Nikhil Tubbs DO.br\Date and Time Signed: 05/12/23 11:06 ESTED Patient Education Noteon 69-77-6446GW Patient Education NoteNoalPremier Health Miami Valley Hospital North Patient Summaryon 73-96-5259SV Patient SummaryNoProMedica Defiance Regional HospitalConsent for Treatmenton 42-84-3870Oshlsgz for Treatment [id number]#1.00TIFWyandot Memorial HospitalDischarge Instructionson 71-38-7017Msddzfhbr Instructions [id number]#1.00TIFFAshtabula County Medical Center CenterED Clinical Summaryon 59-68-3122IG Clinical SummaryNoC[facility] Patient Education Noteon 12-45-0831EI Patient Education Note NormalPremier Health Miami [facility] Hospital North Patient Summaryon 11-12-4680RI Patient SummaryNoProMedica Defiance Regional HospitalXR Hand 3+ Views Righton 44-81-2027DL Hand 3+ Views RightNewark HospitalXR Wrist 3+ Views Righton 79-52-5350PF Wrist 3+ Views RightAdena Fayette Medical Center Note-Physicianon 44-33-2119[place] Note-PhysicianNewark Hospital Comment on above:Result Comment: Electronically Signed By: Landon Tidwell PA-C\.br\Date and Time Signed: 05/08/2413:03 EST\.br\Electronically Co-Signed By: Balbina Bryant M.D.\.br\Date and Time Co-Signed: 05/09/23 07:48 ESTBMPon 89-08-9225Svape gap [Moles/Vol]12 mmol/LNormal6-16[facility] Comment on above:Performed By: #### [id number], 1129935, 21160722, 6703805, 4680740 ####[facility] [address] [place] [address] BUN/Creat Ratio21 No HgoliVjch50-42TmdptmOhiohealth Berger HospitalComment on above: Performed By: #### 9103045, 3046463, 08631049, 9611610, 3055057 ####[facility] [address] [place], [place] [address]Nptsezc [Mass/Vol]8.4 mg/dLLow8.9-11.1FClermont County HospitalComment on above:Performed By: #### 4898334, 9258824, 79092817, 9086795, 5928390 ####[facility] [address] [place], [place] [address]Bsprmwjy [Moles/Vol]105 mmol/LNormal 101-111[facility] HospitalComment on above:Performed By: #### 8330826, 7291895, 72658087, 3210102, 6675574 ####[facility] [address] [place], [place] [address]PS2 [Moles/Vol]24 mmol/TFbctkk42-39KnsfbuOhiohealth Berger HospitalComment on above:Performed By: #### 5610188, 6457688, 09554503, 6693410, 1403914 ####[facility] [address] [place], [place] [address]Smlzbrpzcn [Mass/Vol]0.7 mg/dLNormal0.5-1.3FClermont County HospitalComment on above:Performed By: #### 8986518, 7639571, 52560983, 6778436, 0537291 ####[facility] [address] [place], [place] [address]Uaaobwf [Mass/Vol]107 mg/lBYfyzai23-299RnwqryOhiohealth Berger HospitalComment on above:Performed By: #### 5643199, 4924951, 74710759, 6735371, 1970459 ####[facility] [address] [place], [place] [address]Flxapixwh [Moles/Vol]4.1 mmol/LNormal3.5-5.3FClermont County HospitalComment on above:Performed By: #### 8068064, 4775437, 69111722, 2675103, 2788249 ####[facility] [address] AveNbridgeport [place], [place] [address]Ekyskh [Moles/Vol]137 mmol/LHwdpqg546-933UsbadcOhiohealth Berger HospitalComment on above:Performed By: #### 7998913, 0407237, 12770396, 8333933, 5771680 ####[facility] [address] [place], [place] [address]Jmqr nitrogen [Mass/Vol]15 mg/dLNormal5-21[facility] HospitalComment on above:Performed By: #### 0438777, 6102021, 15287538, 6739896, 8018400 ####[facility] [address] [place], [place] [address]JTK w/ Auto Diffon 11-80-6237Byvhgmty Absolute0.1 E9/LNormal 0.0-0.2FClermont County HospitalComment on above:Performed By: #### 5763394, 7421918, 10617413, 0940892, 4199636 ####[facility] [address] [place], [place] [address]Qbwpdoymo/100 WBC (Bld)0.8 %Normal0.0-2.0 [facility] HospitalComment on above:Performed By: #### 4490972, 9233003, 70742796, 1290030, 6539126 ####[facility] [address] [place] [address]Cny Absolute0.2 E9/LNormal0.0-0.5FClermont County HospitalComment on above:Performed By: #### 5425862, 6895951, 45037642, 4171938, 4731069 ####[facility] [address] [place] [address]Snmxzudvhma/100 WBC (Bld)2.0 %Normal0.0-8.0[facility] HospitalComment on above:Performed By: #### 2771262, 1585406, 10047301, 1988627, 7894618 ####[facility] [address] [place] [address]Lhqinciwtne distribution width (RBC) [Ratio]13.1 %Normal 10.9-14.2FClermont County HospitalComment on above:Performed By: #### 1864481, 2887729, 86960073, 9557261, 6477913 ####[facility] [address] [place] [address]Ggcmnjldxd (Bld) [Volume fraction]44.0 % Wzybhd72.0-46.0[facility] HospitalComment on above:Performed By: #### 7379886, 8860205, 61423841, 0781511, 0032579 ####[facility] [address] [place], [place] [address]Asxixnzuyj (Bld) [Mass/Vol]15.0 g/dL Gsntdr03.0-16.0[facility] HospitalComment on above:Performed By: #### 8202838, 9953103, 22604663, 9477181, 1149193 ####[address] [address]Ttbpn Absolute3.1 E9/LNormal1.0-4.0 [facility] HospitalComment on above:Performed By: #### 8190517, 5177436, 28103112, 3537491, 6263141 ####[address] [address]Dsdtypbqaec/100 WBC (Bld)35.0 %Iqgmaz37.0-50.0 [facility] HospitalComment on above:Performed By: #### 6008361, 3508062, 89654193, 4228774, 7394706 ####[address] [address]IHS (RBC) [Entitic mass]32.2 paGdejix93.0-34.0 [facility] HospitalComment on above:Performed By: #### 5229991, 5524304, 89746670, 9645727, 3017275 ####[address] [address]VWBX (RBC) [Mass/Vol]34.3 g/mUTskymr77.4-36.0[facility] HospitalComment on above:Performed By: #### 6010382, 3569337, 03627476, 2146152, 6583388 ####[address] [address]MSZ (RBC) [Entitic vol]94.0 nOSbopcf45.0-100.0 [facility] HospitalComment on above:Performed By: #### 6914363, 1535165, 37247290, 7273030, 0675930 ####[address] [address]Xhhg Absolute0.6 E9/LNormal0.2-1.0[facility] HospitalComment on above:Performed By: #### 6374379, 6672696, 78349923, 1907191, 9570523 ####[address] [address]Iepcefitq/100 WBC (Bld)6.9 %Normal4.0-14.0[facility] HospitalComment on above:Performed By: #### 9259926, 0583725, 77364603, 9450345, 1694393 ####[address] [address]Eidjwj Absolute5.0 E9/LNormal2.0-7.5FClermont County HospitalComment on above:Performed By: #### 0684254, 4366272, 05768690, 0192763, 6325740 ####[address] [address]Xasxat Auto55.3 %Igwcyg46.0-75.0[facility] HospitalComment on above:Performed By: #### 1320165, 0553672, 14948760, 8647403, 3295017 ####[address] [address]Xxnreqhf698.0 E9/VUuenwv151.0-500.0[facility] HospitalComment on above:Performed By: #### 4439939, 5584546, 48823547, 4415792, 0051826 ####[facility] [address] [place], [place] [address]Nscauvsq mean volume (Bld) [Entitic vol]9.1 fLNormal6.4-10.8[facility] HospitalComment on above: Performed By: #### 4775439, 0282879, 17513070, 0535989, 1097722 ####[facility] [address] [place], [place] [address]KVG5.7 E12/LNormal 4.3-5.9[facility] HospitalComment on above:Performed By: #### 8985012, 7060001, 45217479, 0969900, 0501817 ####[facility] [address] [place], [place] [address]CKG8.0 E9/LNormal4.0-11.0[facility] HospitalComment on above:Performed By: #### 4399526, 5957694, 76684050, 8757583, 9476645 ####[facility] [address] [place] [address]LAYOWRWERPlzwxuh By: SYSTEM SYSTEM on 61-23-4945Svejkhq [Mass/Vol]4.1 g/dLNormal3.3 - 5.0 gm/dLRemisol ChemAlbumin/Globulin [Mass ratio] 1.3 {ratio}Normal1.1 - 2.2Remisol ChemAlk Phos80 [iU]/dDnpree85 - 98 Int._Unit/L Remisol LehaEDM54 [iU]/dHigh6 - 46 Int._Unit/LRemisol ChemAnion gap [Moles/Vol] 12 mmol/LNormal6 - 16 mEq/LRemisol YokhTJM64 [iU]/dNormal5 - 43 Int._Unit/L Remisol ChemBili Direct0.1 mg/dLNormal0.0 - 0.4 mg/dLRemisol ChemBili Indirect 0.4 mg/dLNormal0.1 - 0.9 mg/dLRemisol ChemBili Total0.5 mg/dLNormal0.0 - 1.1 mg/dLRemisol ChemCalcium [Mass/Vol]8.4 mg/dLLow8.9 - 11.1 mg/dLRemisol Chem Chloride [Moles/Vol]105 mmol/RDndsfq440 - 111 mmol/LRemisol ChemCO2 [Moles/Vol] 24 mmol/QAyrref65 - 31 mmol/LRemisol ChemCreatinine [Mass/Vol]0.7 mg/dLNormal0.5 - 1.3 mg/dLRemisol TwgcdDLK918 mL/min/1.73 t9Nsdjbr>=59mL/min/1.73 v0Vjtisyc ChemGlobulin (S) [Mass/Vol]3.2 g/dLNormal1.4 - 4.0 gm/dLRemisol ChemGlucose [Mass/Vol]107 mg/wLBpdwvh10 - 199 mg/dLRemisol ChemLipase Lvl26 unit/SKwhxom15 - 58 unit/LRemisol ChemPotassium [Moles/Vol]4.1 mmol/LNormal3.5 - 5.3 mmol/L Remisol ChemProtein [Mass/Vol]7.3 g/dLNormal6.0 - 7.8 gm/dLRemisol ChemSodium [Moles/Vol]137 mmol/NOpwqai114 - 145 mmol/LRemisol ChemUrea nitrogen [Mass/Vol] 15 mg/dLNormal5 - 21 mg/dLRemisol ChemUrea nitrogen/Creatinine [Mass ratio]21 mg/ntSqnq96 - 20Remisol ChemConsent for Treatmenton 47-54-4645Powwxwc for [id number]#1.00TIFWyandot Memorial HospitalDischarge Instructionson 52-36-1437Vldpaplnd Instructions [id number]#1.00TIFMercy Health Allen Hospital Clinical Summaryon 14-83-4020LA Clinical SummaryNormalPremier Health [facility] North Patient Education Noteon 78-44-1031UZ Patient Education Note NormalPremier Health Miami Valley Hospital North Patient Summaryon 89-23-4988JF Patient SummaryNormUniversity Hospitals Geauga Medical CenterHEMATOLOGYOrdered By: SYSTEM SYSTEM on 79-99-1454Yajghobw Absolute0.1 E9/LNormal0.0 - 0.2 E9/LRemisol HemeBasophils/100 WBC (Bld)0.8 %Normal0.0 - 2.0 %Remisol HemeEos Absolute0.2 E9/LNormal0.0 - 0.5 E9/LRemisol HemeEosinophils/100 WBC (Bld)2.0 %Normal0.0 - 8.0 %Remisol Heme Erythrocyte distribution width (RBC) [Ratio]13.1 %Mszrdb77.9 - 14.2 %Remisol HemeHematocrit (Bld) [Volume fraction]44.0 %Cnluvc19.0 - 46.0 %Remisol Heme Hemoglobin (Bld) [Mass/Vol]15.0 g/yANhulma54.0 - 16.0 gm/dLRemisol HemeLymph Absolute3.1 E9/LNormal1.0 - 4.0 E9/LRemisol HemeLymphocytes/100 WBC (Bld)35.0 % Qnjtbf47.0 - 50.0 %Remisol HemeMCH (RBC) [Entitic mass]32.2 qmQskcii02.0 - 34.0 pgRemisol HemeMCHC (RBC) [Mass/Vol]34.3 g/tGPqsoqr57.4 - 36.0 gm/dLRemisol Heme MCV (RBC) [Entitic vol]94.0 pIQucpwx75.0 - 100.0 fLRemisol HemeMono Absolute0.6 E9/LNormal0.2 - 1.0 E9/LRemisol HemeMonocytes/100 WBC (Bld)6.9 %Normal4.0 - 14.0 %Remisol HemeNeutro Absolute5.0 E9/LNormal2.0 - 7.5 E9/LRemisol HemeNeutro Auto 55.3 %Ryckel21.0 - 75.0 %Remisol EpbiSxzvljya024.0 E9/KGrpthd894.0 - 500.0 E9/L Remisol HemePlatelet mean volume (Bld) [Entitic vol]9.1 fLNormal6.4 - 10.8 fL Remisol HemeRBC4.7 E12/LNormal4.3 - 5.9 E12/LRemisol HemeWBC9.0 E9/LNormal4.0 - 11.0 E9/LRemisol HemeHep Func Panelon [id number] [Mass/Vol]4.1 g/dLNormal 3.3-5.0[facility] HospitalComment on above:Performed By: #### [id number], [id number], [id number], [id number], [id number] ####[facility] [id number] [place], [place] [address]Qmuizao/Globulin [Mass ratio]1.3 {ratio} Normal1.1-2.2FClermont County HospitalComment on above:Performed By: #### [id number], [id number], [id number], [id number], [id number] ####[address] [address]Gvx Phos80 Int._Unit/DStzqba11-16 [facility] HospitalComment on above:Performed By: #### [id number], [id number], [id number], [id number], [id number] ####[address] [id number] Int._Unit/LHigh6-46[facility] HospitalComment on above:Performed By: #### [id number], [id number], [id number], [id number], [id number] ####[id number] [place], [place] [address]CKE87 Int._Unit/LNormal5-43[facility] HospitalComment on above: Performed By: #### [id number], [id number], [id number], 9353538, 2002203 ####[address] [address]Jium Direct0.1 mg/dL Normal0.0-0.4FClermont County HospitalComment on above:Performed By: #### [id number], 6434842, [id number], [id number], [id number] ####[facility] [address] [place], [place] [address]Zzaa Indirect0.4 mg/dLNormal0.1-0.9 Ohiohealth Berger HospitalComment on above:Performed By: #### 9834072, 1570205, 27536501, 3906735, 4795062 ####[address] [address]Bjfc Total0.5 mg/dLNormal0.0-1.1FClermont County HospitalComment on above:Performed By: #### 0033673, 7062724, 31531959, 0445342, 8011410 ####[address] [address]Cdvhhfqr (S) [Mass/Vol]3.2 g/dLNormal1.4-4.0Ohio[facility] Berger HospitalComment on above:Performed By: #### 4955610, 8530023, 01742179, 6795674, 8560723 ####[address] [address]Eeovnzs [Mass/Vol]7.3 g/dLNormal6.0-7.8Ohio[facility] Berger HospitalComment on above:Performed By: #### 8829137, 5243955, 50077984, 1842228, 9464091 ####[address] [address]Gokofo Levelon 51-84-3732Zqdtoj Lvl26 unit/KBmbyoi08-46WvfeldOhiohealth Berger HospitalComment on above:Performed By: #### 7507049, 4946832, 84995447, 4711446, 8857745 ####[address] [address]zOECop 52-77-5599hHCX669 mL/min/1.73 y1Eddmlw>=59Ohiohealth Berger HospitalComment on above:Order Comment: Order added by Discern Expert.Performed By: #### 5683625, 0079824, 88691298, 3458394, 8408196 ####[facility] [address] [place], [place] [address]Qzvndxiyb Instructionson 32-44-4399Alfsikvny Instructions [id number]#1.00TIFFAdena F[facility] Note-Physicianon 33-58-5151LN Note-PhysicianNewark HospitalComment on above:Result Comment: Electronically Signed By: Landon Tidwell PA-C\.br\Date and Time Signed: 05/04/2421:33 EST\.br\Electronically Co-Signed By: Pedro Pablo Fletcher DO\.br\Date and Time Co-Signed: 05/05/23 19:43 ESTConsent for Treatmenton 33-80-1145Acwsgai for Treatment [id number]#1.00TIFFAshtabula County Medical Center CenterED Clinical Summaryon 39-98-8085JD Clinical SummaryNoCincinnati [facility] Note-Nursingon 03-20-6718AL Note-NursingPt. refused staying for 30 minutes more for observation after receiving pain meds, said she always get immediately discharged after receiving the medications. Demanded leaving at this time.[facility] Patient Education Noteon 00-70-9036BX Patient Education NoteNormOhio State [facility] Patient Summaryon 83-49-7760FI Patient SummaryNoProMedica Defiance Regional HospitalB hCG Qualon 79-33-3582Sgky HCG ( test) QlNegativeNewark Hospital Comment on above:Performed By: #### 53711251, 9937366, 7009206, 9364301, 8121572, 89858303, 0347134 ####[facility] [address] [place], [place] [address]HFIfk 34-30-8074Wtcxt gap [Moles/Vol]12 mmol/LNormal6-16 [facility] HospitalComment on above:Performed By: #### 39279779, 3719069, 4268015, 0508378, 6284915, 31705519, 7381041 ####[facility] [address] [place], [place] [address]GZL/Creat Ratio21 No UnitsHigh 10-20Ohio[facility] Berger HospitalComment on above:Performed By: #### 98586466, 2054342, 0813218, 0716533, 1075297, 57696522, 8451571 ####[facility] Zv[address]xxxjnj[address] [place], [place] [address]Obkwajv [Mass/Vol]8.6 mg/dLLow 8.9-11.1[facility] Trauma CenterComment on above:Performed By: #### 15376791, 4237912, 0984878, 2103046, 4210440, 61556732, 0842294 ####[facility] [address] [place] [address]Lhcibknp [Moles/Vol]106 mmol/L Rdxfkm051-559EdrtomOhiohealth Berger HospitalComment on above:Performed By: #### 21664839, 5230425, 1688323, 7272963, 4726596, 39362035, 3870252 ####[facility] [address] [place] [address]CF6 [Moles/Vol]24 mmol/YAubjpg74-11WooamhOhiohealth Berger HospitalComment on above:Performed By: #### 76136434, 5217374, 6255211, 5275694, 2094983, 95768935, 6776562 ####[facility] [address] [place] [address]Fxlxgbbyiz [Mass/Vol] 0.7 mg/dLNormal0.5-1.3[facility] Trauma CenterComment on above:Performed By: #### 62478905, 2873930, 8793682, 0814185, 3648317, 81216327, 6779613 ####[facility] Qrezzzuzra[address] [place], [place] [address]Tbesizr [Mass/Vol]83 mg/vEEqzncx76-370OfugbxOhiohealth Berger HospitalComment on above: Performed By: #### 16697337, 2298358, 2689450, 7640673, 1742315, 17478584, 4338019 ####[address] [address]Opwizwhlz [Moles/Vol]4.1 mmol/LNormal3.5-5.3FClermont County Hospital Comment on above:Performed By: #### 43354294, 1817126, 0375056, 9184632, 0018274, 69133159, 5397524 ####[address] [address]Dzgmlf [Moles/Vol]138 mmol/DEmewto947-032AthbsnOhiohealth Berger HospitalComment on above:Performed By: #### 05518020, 4618171, 9755782, 6052422, 4211636, 10781353, 9179566 ####[address] [address]Vycj nitrogen [Mass/Vol]15 mg/dLNormal5-21Ohio[facility] Berger HospitalComment on above:Performed By: #### 37193833, 4633002, 3015181, 7362612, 3654369, 96401547, 6311284 ####[address] [address]KUK w/ Auto Diffon 82-50-3862Kywdmgui Absolute0.0 E9/LNormal0.0-0.2FClermont County HospitalComment on above: Performed By: #### 14315277, 3853240, 8826281, 6168351, 3122651, 16255931, 8978401 ####[address] [address]Bmrzbxtbd/100 WBC (Bld)0.6 %Normal0.0-2.0Ohio[facility] Berger HospitalComment on above:Performed By: #### 55055039, 3655594, 0734750, 5929679, 6827367, 09882233, 9450140 ####[address] [address]Qum Absolute0.2 E9/LNormal0.0-0.5FClermont County Hospital Comment on above:Performed By: #### 97847767, 0169649, 6523712, 2277315, 7251958, 12462640, 7021024 ####[address] [address]Upmkzowfoac/100 WBC (Bld)2.5 %Normal0.0-8.0Ohio[facility] Berger HospitalComment on above:Performed By: #### 66060141, 8294494, 8272278, 7393169, 5536494, 46235634, 3557671 ####[address] [address]Mcdabfgohqc distribution width (RBC) [Ratio]13.3 % Dmzpuj79.9-14.2FClermont County HospitalComment on above:Performed By: #### 91682938, 9138021, 2893684, 3853647, 0212247, 38665811, 1454145 ####[address] [address]Fzjldikidl (Bld) [Volume fraction]43.0 %Jtgusz14.0-46.0Ohio[facility] Berger HospitalComment on above:Performed By: #### 21273390, 9469555, 8016819, 0858867, 9911460, 80496017, 4155350 ####O[address] [address]Toguotpoob (Bld) [Mass/Vol]14.3 g/gYUvsdlv56.0-16.0Ohio[facility] Berger HospitalComment on above:Performed By: #### 23162406, 9518022, 9997213, 1547766, 4192097, 47637145, 0846600 ####[address] [address]Bqvvm Absolute2.2 E9/LNormal1.0-4.0[facility] Berger HospitalComment on above:Performed By: #### 20177513, 9788266, 9897038, 6628139, 2727611, 16216909, 2333814 ####[address] [address]Wtvmyvbeumg/100 WBC (Bld)26.7 %Smlwla80.0-50.0[facility] Berger HospitalComment on above:Performed By: #### 07598531, 2691504, 2965827, 0164794, 1412296, 23753076, 4151576 ####[address] [address]EYS (RBC) [Entitic mass]31.7 dxWabqmz37.0-34.0 [facility] Berger HospitalComment on above:Performed By: #### 73636529, 8838680, 2055293, 3774866, 9229995, 62202131, 1962364 ####[address] [address]IHDN (RBC) [Mass/Vol]33.5 g/dL Gzwuds70.4-36.0Ohio[facility] Berger HospitalComment on above:Performed By: #### 12211074, 4798937, 3133261, 2447653, 4530486, 80657808, 1042322 ####[address] [address]LOA (RBC) [Entitic vol]94.6 lEYozqtn88.0-100.0Ohio[facility] Berger HospitalComment on above:Performed By: #### 98221038, 6651768, 4385515, 8426359, 6251113, 07125463, 0742959 ####[address] [address]Guui Absolute0.7 E9/LNormal0.2-1.0[facility] Berger HospitalComment on above: Performed By: #### 26033945, 9169980, 7121739, 2159176, 2726698, 41184731, 8765868 ####[address] [address]Flnqebpgt/100 WBC (Bld)8.4 %Normal4.0-14.0[facility] Comment on above:Performed By: #### 47683652, 1052610, 4424299, 4668671, 0587629, 79285679, 8928776 ####[address] [address]Trmesr Absolute5.0 E9/LNormal2.0-7.5FClermont County HospitalComment on above:Performed By: #### 83802808, 0834476, 5907671, 1757452, 2952331, 45519502, 8098423 ####[address] [address]Znnbhx Auto61.8 %Grrzxf70.0-75.0[facility] Comment on above:Performed By: #### 63241563, 6490510, 0192651, 0079356, 4348850, 29981488, 3423622 ####[address] [address]Exuduczg076.0 E9/DQzfliq373.0-500.0[facility] Berger HospitalComment on above:Performed By: #### 54824466, 1500193, 8902939, 4203508, 2522727, 36369319, 4469252 ####[address] [address]Uktetufu mean volume (Bld) [Entitic vol]9.1 fLNormal6.4-10.8 [facility] Berger HospitalComment on above:Performed By: #### 28293244, 7261171, 2320521, 3299166, 5928354, 57101738, 5100540 ####[address] [address]JMA8.5 E12/LNormal4.3-5.9 [facility] HospitalComment on above:Performed By: #### 08494962, 0531045, 2749102, 1694885, 5303763, 98809335, 2417839 ####[facility] [address] [place], [place] [address]UEG4.1 E9/LNormal4.0-11.0 [facility] HospitalComment on above:Performed By: #### 56774535, 5275507, 6301947, 0463220, 9647319, 92962448, 5060209 ####[facility] [address] [place], [place] [address]WF Abdomen/Pelvis w/ Contrast on 73-66-9676CX Abdomen/Pelvis w/ ContrastNewark Hospital Consent for Treatmenton 27-17-5948Akucbnc for Treatment [id number]#1.00TIFWyandot Memorial HospitalDischarge Instructionson 16-10-7018Zfeklmmsr Instructions [id number]#1.00TIFFAdena Fayette Medical Center Clinical Summaryon 33-91-0830VK Clinical SummaryNoC[facility] Note-Physicianon 64-93-0455NV Note-PhysicianNewark HospitalComment on above:Result Comment: Electronically Signed By: Elisa Sánchez DO.br\Date and Time Signed: 04/30/23 21:02 ESTED Patient Education Noteon 90-93-2018MS Patient Education NoteNoTriHealth CenterED Patient Summaryon 45-23-0771UI Patient SummaryNoPro[facility] Hep Func Panelon 02-32-5792Ngqoqfn [Mass/Vol]3.9 g/dLNormal3.3-5.0[facility] HospitalComment on above:Performed By: #### 30537623, 9239974, 8463960, 4641401, 5663221, 54468139, 9356550 ####[facility] [address] [place], [place] [address]Ouitbby/Globulin [Mass ratio]1.3 {ratio}Normal 1.1-2.2FClermont County HospitalComment on above:Performed By: #### 51738588, 0058224, 8042022, 1851904, 9004809, 85137374, 0243345 ####[facility] [address] [place], [place] [address]Xjl Phos84 Int._Unit/LNormal 21-[facility] Berger HospitalComment on above:Performed By: #### 53919416, 7567610, 0760572, 7179056, 9584354, 08715907, 6786061 ####[address] [place], [place] [address]PQW987 Int._Unit/LHigh6-46 [facility] HospitalComment on above:Performed By: #### 47654833, 0077080, 4615310, 8248512, 2865294, 47885009, 9847623 ####[facility] [address] [place] [address]CRI43 Int._Unit/LHigh5-43 [facility] HospitalComment on above:Performed By: #### 79408530, 2219311, 1933381, 8533344, 1231729, 89808533, 0161875 ####[address] [address]Diiz Direct0.1 mg/dLNormal 0.0-0.4FClermont County HospitalComment on above:Performed By: #### 95324681, 4261881, 6229457, 0294397, 7417772, 57467611, 9319893 ####[facility] [address] [place], [place] [address]Rbup Indirect0.2 mg/dLNormal 0.1-0.9Ohio[facility] Berger HospitalComment on above:Performed By: #### 02170881, 6856887, 0812390, 5157044, 2197650, 86385034, 3488882 ####[facility] [address] [place], [place] [address]Alqh Total0.3 mg/dLNormal 0.0-1.1FClermont County HospitalComment on above:Performed By: #### 91097284, 1442656, 6354409, 4784227, 8582714, 78048401, 8348439 ####[facility] [address] [place] [address]Wukqzuav (S) [Mass/Vol]3.0 g/dLNormal1.4-4.0[facility] Berger HospitalComment on above:Performed By: #### 51586016, 0567506, 4659734, 2191521, 1285527, 24377642, 9591529 ####[facility] [address] [place] [address]Fkmtnnl [Mass/Vol]6.9 g/dLNormal6.0-7.8[facility] Berger HospitalComment on above:Performed By: #### 21258706, 8472890, 4588488, 1597731, 6539415, 05500086, 8659099 ####[address] [address]Caeonr Acidon 09-18-7825Sqpejo Acid Lvl1.3 mmol/LNormal0.5-2.2FClermont County Hospital Comment on above:Performed By: #### 06230538, 5345132, 3775569, 6805032, 2544240, 53588667, 8839946 ####[facility] [address] [place] [address]Jtwqqd Levelon 65-70-8855Ssoclj Lvl29 unit/XMnrtqv14-49 [facility] HospitalComment on above:Performed By: #### 41567128, 9597286, 8192303, 5482266, 5316895, 48731892, 1209391 ####[facility] [address] [place] [address]JDZ Cholangiogram Pancreatography (mrcp)on 10-39-6560HGO Cholangiogram Pancreatography (mrcp) NormalOhiohealth Berger HospitalRAD - MRI Screening Formon 75-28-9813SGE - MRI Screening [id number]#1.00TIFFNormUniversity Hospitals Geauga Medical CenterUA With Cult Reflexon 36-63-6340Wpdzzbdn LM Ql (Urine sed) TRACENormalTraceOhiohealth Berger HospitalComment on above:Performed By: #### 96875135 ####[address] [address]Jnzgzfdvh Ql (U)NegativeNormalNegativeOhiohealth Berger HospitalComment on above:Performed By: #### 84961151 ####[address] [address]Vuhnuoy (U)CLEARNormalClearOhiohealth Berger HospitalComment on above:Performed By: #### 42813007 ####[address] [address]Djirl (U)YELLOWNormalYellow [facility] HospitalComment on above:Performed By: #### 14564123 ####[address] [address] Epithelial cells.squamous LM.HPF (Urine sed) [#/Area]7-1Kjdvli9-7Dmvdxa R [facility] Cow[facility] Shock Trauma CenterComment on above:Performed By: #### 73023298 ####[address] [address]Ythnbmp Test strip (U) [Mass/Vol]NegativeNormalNegKindred Hospital DaytonComment on above: Performed By: #### 78573666 ####[address] [address]Lehwnajfdq Ql (U)NegativeNormalNegKindred Hospital DaytonComment on above:Performed By: #### 85475449 ####[address] [address]Ebktxbx (U) [Mass/Vol] NegativeNormalNegKindred Hospital DaytonComment on above:Performed By: #### 82413680 ####[address] [address]Hctgbtc.plasma/[place].RBC (Bld) [Mass ratio]5-8Duyzex7-3Gvuaho R [facility] Cow[facility] Shock Trauma CenterComment on above:Performed By: #### 73378262 ####[address] [address]Nglrogf Ql (U)Negative NormalNegativeOhiohealth Berger HospitalComment on above:Performed By: #### 61546661 ####[address] [address]rL (U)5.5 [pH]Invalid Interpretation Code5.0-9.0[facility] Comment on above:Performed By: #### 73856110 ####[address] [address]Pwsaaxa (U) [Mass/Vol]NegativeNormal NegativeOhiohealth Berger HospitalComment on above:Performed By: #### 45306822 ####[address] [address] Specific gravity (U) [Rel density]1.010Invalid Interpretation Code1.005-1.030 [facility] HospitalComment on above:Performed By: #### 92370232 ####[address] [address]Vwuy of Urine collection methodClean CatchNormalOhiohealth Berger HospitalComment on above:Performed By: #### 77048051 ####[address] [address]Vdzzjmueipsq Qn (U)0.2 {Jan'U}/dLNormal0.0-1.0 [facility] HospitalComment on above:Performed By: #### 93926321 ####[address] [address]EYE Auto Ql (U)NegativeNormalNegativeOhiohealth Berger HospitalComment on above: Performed By: #### 87651375 ####[facility] [address] [place], [place] [address]RLH LM.HPF (Urine sed) [#/Area]1-7Tpntqw5-7Cozwmn [facility] Shock Trauma CenterComment on above:Performed By: #### 74835010 ####[facility] [address] [place], [place] [address]hFWVyl 21-65-7379vEEA265 mL/min/1.73 r0Aevski>=59[facility] Berger HospitalComment on above:Order Comment: Order added by Discern Expert.Performed By: #### 62733328, 8158723, 2521215, 9544465, 7315115, 93062837, 2301747 ####[facility] [address] [place], [place] [address]LU Note-Physicianon 04-27-2023 ED Note-PhysicianNewark HospitalComment on above:Result Comment: Electronically Signed By: Angelic Reece PA-C\.br\Date and Time Signed: 04/25/23 10:27 EST\.br\Electronically Co-Signed By: Pedro Pablo Fletcher DO\.br\Date and Time Co-Signed: 04/27/23 20:17 ESTConsent for Treatmenton 27-22-0203Jwfwjbx for [id number]#1.00TIFF Newark HospitalDischarge Instructionson 39-22-6821Jauvxyzku [id number]#1.00TIFFNormValley Presbyterian Hospital Medical CenterED Clinical Summaryon 72-11-6334MQ Clinical SummaryNormBlanchard Valley Health System [facility] CenterED Note-Physicianon 97-66-1532DN Note-[facility] HospitalComment on above:Result Comment: Electronically Signed By: Balbina Bryant M.D.\.br\Date and Time Signed: 04/26/2409:46 ESTED Patient Education Noteon 93-74-1555TR Patient Education NoteNoMineral Area Regional Medical Center Medical CenterED Patient Summaryon 23-87-5802GA Patient SummaryNoC[facility] Note-Physicianon 86-84-9362PQ Note-PhysicianNewark HospitalComment on above:Result Comment: Electronically Signed By: Landon Tidwell PA-C\.br\Date and Time Signed: 04/22/2419:40 EST\.br\Electronically Co-Signed By: Landon Tidwell PA-C.br\Date and Time Co-Signed: 04/22/23 20:40 EST\.br\Electronically Co-Signed By: Pedro Pablo Fletcher DO.br\Date and Time Co-Signed: 04/23/23 00:21 ESTConsent for Treatmenton 17-26-1043Fgnfhto for [id number]#1.00TIFF Newark HospitalDischarge Instructionson 29-61-2965Lxocfrjin D[id number]#1.00TIFFAdena Fayette Medical Center Clinical Summaryon 52-24-4639YW Clinical SummaryNo[facility] Patient Education Noteon 70-65-3621MT Patient Education NoteNo[facility] Patient Summaryon 83-90-5527YL Patient SummaryNoProMedica Defiance Regional HospitalCT Spine Lumbar w/o Contraston 77-77-7811DK Spine Lumbar w/o ContrastNoProMedica Defiance Regional HospitalCT Spine Thoracic w/o Contraston 94-43-8551FK Spine Thoracic w/o ContrastNewark HospitalConsent To Leave AMAon 63-55-1970Dyxdlyw To Leave AMA [id number]#1.00TIFFNormUniversity Hospitals Geauga Medical CenterConsent for Treatmenton 19-33-2283Zvqdaet for Treatment [id number]#1.00TIFWyandot Memorial HospitalDischarge Instructionson 91-30-5260Flbdkvlaz Instructions [id number]#1.00TIFMercy Health Allen Hospital Clinical Summaryon 87-87-3918TT Clinical SummaryNo[facility] Clinical SummaryNo[facility] Note-Nursingon 68-79-4082TE Note-NursingPatient requesting to leave AMA at this time. Dr. Flethcer made aware. Patient ambulatory upon exitwith spouse.[facility] Note-NursingPatient offered additional medication. Patient states no relief from original medication. Patient refused additional medications. Patient states I can just do that at home. Dr. Fletcher made aware.[facility] Note-NursingPatient updated with plan at this time, aware of awaiting ct results.[facility] Note-Physicianon 67-26-6958EH Note-PhysicianNewark Hospital Comment on above:Result Comment: Electronically Signed By: Robert Taylor PA-C\.br\Date and Time Signed: 04/11/2417:59 EST\.br\Electronically Co-Signed By: Balbina Bryant M.D.\.br\Date and Time Co-Signed: 04/11/23 19:13 ESTED Patient Education Noteon 64-22-1832UM Patient Education NoteAdena Fayette Medical Center Patient Education NoteNo[facility] Patient Summaryon 25-12-8444VY Patient SummaryNo[facility] ED Patient SummaryNoProMedica Defiance Regional HospitalRAD - Preliminary Cat Scan Reporton 58-81-3137STA - Preliminary Cat Scan Report [id number]#1.00TIFWyandot Memorial HospitalXR Spine Lumbosacral 2 or 3 Viewson 32-92-7026YC Spine Lumbosacral 2 or 3 ViewsNewark HospitalConsent for Treatmenton 55-00-4583Brbbbia for [id number]#1.00TIFFNormalOhiohealth Berger HospitalAuto Diffon 66-31-4350Aukknaiax/100 WBC (Bld)0.4 %Normal0.0-2.0 [facility] HospitalComment on above:Order Comment: Order Added by Discern Expert.Performed By: #### 3830361, 4222220, 9285674, 9231261, 9445784, 46463136 ####[address] [address]Gpfldbfaf/Leukocytes Auto (Bld) [Pure # fraction]0.0 E9/LNormal0.0-0.2 [facility] HospitalComment on above:Order Comment: Order Added by Discern Expert.Performed By: #### 3091513, 1759085, 2570392, 1255287, 7200053, 10688146 ####[address] [address]Blyktqixkud/100 WBC (Bld)2.3 %Normal0.0-8.0[facility] Comment on above:Order Comment: Order Added by Discern Expert.Performed By: #### 9273421, 0602955, 9649999, 5726248, 4763451, 77721895 ####[address] [place], [place] [address]Lixikhnktku/Leukocytes Auto (Bld) [Pure # fraction]0.2 E9/LNormal0.0-0.5FClermont County HospitalComment on above:Order Comment: Order Added by Discern Expert.Performed By: #### 1350646, 5809768, 6637221, 7772573, 6921480, 93290272 ####[address] [address]Hneyshfhybb/100 WBC (Bld)29.6 %Piolvr50.0-50.0[facility] HospitalComment on above:Order Comment: Order Added by Discern Expert.Performed By: #### 2697949, 9647039, 7262875, 6583081, 3016688, 49924475 ####[address] [address]Lttnuymsdje/Leukocytes Auto (Bld) [Pure # fraction]2.2 E9/L Normal1.0-4.0[facility] HospitalComment on above:Order Comment: Order Added by Discern Expert.Performed By: #### 2413325, 1745968, 4424512, 9588436, 5616067, 86844515 ####[address] [address]Qgzskweqj/100 WBC (Bld)9.7 %Normal4.0-14.0[facility] HospitalComment on above:Order Comment: Order Added by Discern Expert. Performed By: #### 7329277, 7990119, 8188363, 2581170, 0234057, 09535676 ####[address] [address] Monocytes/Leukocytes Auto (Bld) [Pure # fraction]0.7 E9/LNormal0.2-1.0[facility] HospitalComment on above:Order Comment: Order Added by Discern Expert.Performed By: #### 5540472, 6198868, 5742829, 7460165, 0182076, 89617426 ####[address] [address] Neutrophils/100 WBC (Bld)58.0 %Tozlcx38.0-75.0[facility] HospitalComment on above:Order Comment: Order Added by Discern Expert.Performed By: #### 0140284, 3134800, 6371918, 8835975, 8559618, 65333096 ####[address] [address]Cibljktfvji/Leukocytes Auto (Bld) [Pure # fraction]4.3 E9/LNormal2.0-7.5FClermont County HospitalComment on above:Order Comment: Order Added by Discern Expert.Performed By: #### 0574936, 7785332, 4673617, 9488051, 4065254, 00781680 ####[address] [place], [place] [address]KCMei 01-12-7279Izxkk gap [Moles/Vol]11 mmol/LNormal6-16[facility] HospitalComment on above: Performed By: #### 9310663, 2771162, 8455187, 2511353, 8707205, 60294933 ####[address] [address] BUN/Creat Ratio15 No QjjnmPwyyqf06-14QudlmgOhiohealth Berger HospitalComment on above:Performed By: #### 5875032, 2495772, 4004923, 0286597, 7996122, 61508238 ####[address] [address] Calcium [Mass/Vol]8.6 mg/dLLow8.9-11.1FClermont County HospitalComment on above:Performed By: #### 9508624, 8847336, 0240111, 5591003, 4640903, 81443893 ####[address] [address] Chloride [Moles/Vol]107 mmol/CAmvtvt261-662PtwfwrOhiohealth Berger HospitalComment on above:Performed By: #### 1789433, 3620570, 9947095, 6691615, 7586844, 10150150 ####[address] [address]BP7 [Moles/Vol]24 mmol/LGrvwfe24-86UuyaubOhiohealth Berger HospitalComment on above: Performed By: #### 5901819, 6706870, 3107303, 6031455, [id number], [id number] ####[address] [address] Creatinine [Mass/Vol]0.8 mg/dLNormal0.5-1.3FClermont County HospitalComment on above:Performed By: #### [id number], [id number], [id number], 9157160, [id number], [id number] ####[address] [place] [address] Glucose [Mass/Vol]145 mg/qKJbnipl47-634ZldvwtOhiohealth Berger HospitalComment on above:Performed By: #### [id number], 1464552, 8391297, 0084512, 8267587, [id number] ####[address] [address] Potassium [Moles/Vol]3.4 mmol/LLow3.5-5.3FClermont County HospitalComment on above:Performed By: #### [id number], 7013217, 3638264, 8593447, 2336273, [id number] ####[address] [address] Sodium [Moles/Vol]139 mmol/SHlfecl260-606DdblzsOhiohealth Berger HospitalComment on above:Performed By: #### [id number], 8472804, 1519172, 8061738, 3384177, [id number] ####[address] [address]Ftga nitrogen [Mass/Vol]12 mg/dLNormal5-21Ohiohealth Berger HospitalComment on above:Performed By: #### [id number], 9206331, 7722226, 9031407, 3658257, [id number] ####[address] [address]SNK w/ Auto Diffon [id number] distribution width (RBC) [Ratio]13.2 % Xbiwtn20.9-14.2FClermont County HospitalComment on above:Performed By: #### 5312271, 3382305, 5335902, 9324474, 1775854, 11302996 ####[address] [address]Egbcassnwy (Bld) [Volume fraction]43.1 %Dvjugu91.0-46.0[facility] Berger HospitalComment on above: Performed By: #### 8003942, 2257337, 1957443, 8411862, 9963977, 41690890 ####[address] [place] [address] Hemoglobin (Bld) [Mass/Vol]14.5 g/bKLlvbkk15.0-16.0[facility] Comment on above:Performed By: #### 5763363, 4227000, 4159115, 0966326, 5536112, 60088218 ####[address]MCH (RBC) [Entitic mass]31.8 luHoqgzm37.0-34.0[facility] Comment on above:Performed By: #### 5329576, 5653707, 9242580, 8071903, 8043694, 18937554 ####[address]MCHC (RBC) [Mass/Vol]33.5 g/dANmivei16.4-36.0[facility] Comment on above:Performed By: #### 7549285, 3399792, 5803282, 8498946, 4029446, 67506223 ####[address] [address]XYH (RBC) [Entitic vol]95.0 aGVptjio08.0-100.0[facility] Comment on above:Performed By: #### 1255913, 7000690, 9405354, 6413094, 9522725, 89970588 ####[address] [address]Mksurmgq mean volume (Bld) [Entitic vol]9.0 fLNormal6.4-10.8[facility] Berger HospitalComment on above:Performed By: #### 5994201, 9763410, 3711400, 3526889, 2495573, 25411038 ####[address] [address]Tqrltnkis (Bld) [#/Vol]268.0 E9/AHpnqsa328.0-500.0 [facility] HospitalComment on above:Performed By: #### 9747737, 0030550, 4860099, 8077797, 9594369, 40072435 ####[facility] [address] [place], [place] [address]TPW (Bld) [#/Vol]4.5 E12/LNormal 4.3-5.9[facility] HospitalComment on above:Performed By: #### 5544669, 7254193, 8709293, 6108072, 6415365, 29805804 ####[facility] [address] [place], [place] [address]AMJ corrected for nucl RBC Auto (Bld) [#/Vol]7.4 E9/LNormal4.0-11.0[facility] HospitalComment on above: Performed By: #### 5203936, 1082223, 2811357, 4168749, 1376246, 70128090 ####[facility] [address] [place] [address] CHEMISTRYOrdered By: SYSTEM SYSTEM on 35-25-3476Zfofexg [Mass/Vol]4.0 g/dLNormal 3.3 - 5.0 gm/dLRemisol ChemAlbumin/Globulin [Mass ratio]1.2 {ratio}Normal1.1 - 2.2Remisol ChemAlk Phos79 [iU]/nIzrdmy87 - 98 Int._Unit/LRemisol MhqaJWX685 [iU]/dHigh6 - 46 Int._Unit/LRemisol ChemAnion gap [Moles/Vol]11 mmol/LNormal6 - 16 mEq/LRemisol UdqxSIY24 [iU]/dHigh5 - 43 Int._Unit/LRemisol ChemBili Direct0.2 mg/dLNormal0.0 - 0.4 mg/dLRemisol ChemBili Indirect0.6 mg/dLNormal0.1 - 0.9 mg/dLRemisol ChemBili Total0.8 mg/dLNormal0.0 - 1.1 mg/dLRemisol ChemCalcium [Mass/Vol]8.6 mg/dLLow8.9 - 11.1 mg/dLRemisol ChemChloride [Moles/Vol]107 mmol/L Dtkbrg386 - 111 mmol/LRemisol ChemCO2 [Moles/Vol]24 mmol/ZTwfxaq12 - 31 mmol/L Remisol ChemCreatinine [Mass/Vol]0.8 mg/dLNormal0.5 - 1.3 mg/dLRemisol ChemeGFR mL/min/1.73 w5Dakiap>=59mL/min/1.73 m3Ekgvcwb ChemGlobulin (S) [Mass/Vol]3.3 g/dLNormal1.4 - 4.0 gm/dLRemisol ChemGlucose [Mass/Vol]145 mg/lNNmyazl31 - 199 mg/dLRemisol ChemLipase Lvl26 unit/CWwsbvp61 - 58 unit/LRemisol ChemPotassium [Moles/Vol]3.4 mmol/LLow3.5 - 5.3 mmol/LRemisol ChemProtein [Mass/Vol]7.3 g/dL Normal6.0 - 7.8 gm/dLRemisol ChemSodium [Moles/Vol]139 mmol/SRmfulw079 - 145 mmol/LRemisol ChemUrea nitrogen [Mass/Vol]12 mg/dLNormal5 - 21 mg/dLRemisol Chem Urea nitrogen/Creatinine [Mass ratio]15 mg/mcKeyqcp30 - 20Remisol ChemConsent for Treatmenton 67-93-9262Jpxtyct for Treatment [id number]#1.00TIFWyandot Memorial HospitalDischarge Instructionson 89-38-9309Ojcjvwsdl Instructions [id number]#1.00TIFFAdena [facility]ayette [facility] Clinical Summaryon 85-43-4558FO Clinical SummaryNormBlanchard Valley [facility] CenterED Note-Physicianon 81-16-9744NW Note-PhysicianNewark HospitalComment on above:Result Comment: Electronically Signed By: Robert Taylor PA-C\.br\Date and Time Signed: 04/05/2417:35 EST\.br\Electronically Co-Signed By: Nikhil Tubbs DO\.br\Date and Time Co- Signed: 04/05/2417:36 ESTED Patient Education Noteon 66-10-8660IS Patient Education NoteNormOhio State [facility]ing [facility] Patient Summaryon 01-20-7485FT Patient SummaryNoProMedica Defiance Regional HospitalHEMATOLOGYOrdered By: SYSTEM SYSTEM on 78-25-6239Yuncywbwg/100 WBC (Bld)0.4 %Normal0.0 - 2.0 %[facility] HemeAutoSS Basophils/Leukocytes Auto (Bld) [Pure # fraction]0.0 E9/LNormal0.0 - 0.2 E9/L [facility] HemeAutoSSEosinophils/100 WBC (Bld)2.3 %Normal0.0 - 8.0 %[facility] HemeAutoSS Eosinophils/Leukocytes Auto (Bld) [Pure # fraction]0.2 E9/LNormal0.0 - 0.5 E9/L [facility] HemeAutoSSLymphocytes/100 WBC (Bld)29.6 %Uopyfa63.0 - 50.0 %[facility] HemeAutoSS Lymphocytes/Leukocytes Auto (Bld) [Pure # fraction]2.2 E9/LNormal1.0 - 4.0 E9/L [facility] HemeAutoSSMonocytes/100 WBC (Bld)9.7 %Normal4.0 - 14.0 %[facility] HemeAutoSS Monocytes/Leukocytes Auto (Bld) [Pure # fraction]0.7 E9/LNormal0.2 - 1.0 E9/L [facility] HemeAutoSSNeutrophils/100 WBC (Bld)58.0 %Txiuzg20.0 - 75.0 %[facility] HemeAutoSS Neutrophils/Leukocytes Auto (Bld) [Pure # fraction]4.3 E9/LNormal2.0 - 7.5 E9/L [facility] HemeAutoSSHEMATOLOGYOrdered By: Nisha Chau on 77-39-4670Vxgdielhzjk distribution width (RBC) [Ratio]13.2 %Axfipl03.9 - 14.2 %[facility] HemeAutoSS Hematocrit (Bld) [Volume fraction]43.1 %Pcouqs68.0 - 46.0 %[facility] HemeAutoSS Hemoglobin (Bld) [Mass/Vol]14.5 g/nGPsahnh55.0 - 16.0 gm/dLFT HemeAutoSSMCH (RBC) [Entitic mass]31.8 loKmyrsy89.0 - 34.0 pgFLAWT[facility] [place] HemeAutoSSMCHC (RBC) [Mass/Vol]33.5 g/fKHhvbgb59.4 - 36.0 gm/dLFT HemeAutoSSMCV (RBC) [Entitic vol] 95.0 gFQnfyse85.0 - 100.0 fLHARPER [facility] [place] HemeAutoSSPlatelet mean volume (Bld) [Entitic vol]9.0 fLNormal6.4 - 10.8 fLHARPER [facility] [place] HemeAutoSSPlatelets (Bld) [#/Vol]268.0 E9/L Jnvqea350.0 - 500.0 E9/LFLAWT[facility]DI[facility] [place] HemeAutoSSRBC (Bld) [#/Vol]4.5 E12/LNormal4.3 - 5.9 E12/[facility] HemeAutoSSWBC corrected for nucl RBC Auto (Bld) [#/Vol]7.4 E9/LNormal 4.0 - 11.0 E9/LFLAWTON [facility]DI[facility] [place] HemeAutoSSHep Func Panelon 71-87-9079Rgctdii [Mass/Vol]4.0 g/dLNormal3.3-5.0[facility] HospitalComment on above:Performed By: #### 5488574, 3583315, 9531689, 8227477, 6764480, 07096491 ####[address] [place], [place] [address]Kngzejn/Globulin [Mass ratio] 1.2 {ratio}Normal1.1-2.2[facility] Shock Trauma CenterComment on above:Performed By: #### 4851983, 2813417, 6482573, 4046408, 4473334, 33597160 ####[address] [place], [place] [address]Vwp Phos79 Int._Unit/L Abwfef65-59JfdoziOhiohealth Berger HospitalComment on above:Performed By: #### 1606655, 4572169, 8271216, 7426176, 2431296, 01360297 ####[address] [place], [place] [address]OOZ738 Int._Unit/LHigh6-46 [facility] HospitalComment on above:Performed By: #### 7969682, 7224600, 7544074, 1588771, 4988533, 32531495 ####[address] [place], [place] [address]QEG85 Int._Unit/LHigh5-43[facility] HospitalComment on above:Performed By: #### 2922333, 1646981, 1662919, 0547718, 5963099, 33473699 ####[address] [address]Hdnk Direct0.2 mg/dLNormal0.0-0.4FClermont County HospitalComment on above:Performed By: #### 5669991, 2509528, 2027507, 1555812, 5316627, 51051898 ####[address] [address]Lqbr Indirect0.6 mg/dLNormal0.1-0.9[facility] HospitalComment on above:Performed By: #### 1857037, 4379216, 4932723, 0208319, 3713408, 74408946 ####[address] [address]Suyv Total0.8 mg/dLNormal0.0-1.1FClermont County HospitalComment on above:Performed By: #### 0333457, 7566766, 7944378, 8140937, 3289728, 50635926 ####[address] [address]Bqgynnas (S) [Mass/Vol]3.3 g/dLNormal1.4-4.0[facility] HospitalComment on above:Performed By: #### 5356078, 5271730, 2824723, 2284663, 6988397, 26829666 ####[address], [place] [address]Epglecm [Mass/Vol]7.3 g/dLNormal 6.0-7.8[facility] HospitalComment on above:Performed By: #### 9922032, 8195098, 6373314, 8018302, 0413759, 95565503 ####[facility] [address] [place], [place] [address]Joomzk Levelon 27-31-8399Wqslit Lvl26 unit/JTyqknx19-82BxjtptOhiohealth Berger HospitalComment on above:Performed By: #### 6072764, 6644389, 5517544, 2522536, 1572645, 74504146 ####[facility] [address] [place], [place] [address]jCBGrc 22-42-3949MII/1.73 sq M.predicted among non-blacks MDRD (S/P/Bld) [Vol rate/Area]mL/min/{1.73_m2} Normal>=59Ohio[facility] Berger HospitalComment on above:Order Comment: Order added by Discern Expert.Performed By: #### 2779033, 7890735, 7507972, 2486329, 1835826, 95784870 ####[facility] [address] [place], [place] [address]Acrgeyf for Treatmenton 36-17-5493Dnuuyxc for Treatment [id number]#1.00TIFWyandot Memorial HospitalDischarge Instructionson 38-55-2008Mnruijcin Instructions [id number]#1.00TIFFNoMineral Area Regional Medical Center Medical CenterED Clinical Summaryon 29-71-9372YH Clinical SummaryNormBlanchard Valley [facility] System [facility] Hospital CenterED Note-Physicianon 95-70-6309AK Note-PhysicianNoProMedica Defiance Regional HospitalComment on above:Result Comment: Electronically Signed By: Elisa Sánchez DO\Date and Time Signed: 04/02/23 22:34 ESTED Patient Education Noteon 92-46-5971LI Patient Education NoteNoTriHealth CenterED Patient Summaryon 24-14-3626DM Patient SummaryNoProMedica [facility] Consent for Treatmenton 30-89-8434Stegzth for Treatment [id number]#1.00TIFWyandot Memorial HospitalDischarge Instructionson 01-03-7365Ilsxyvirf Instructions [id number]#1.00TIFFNoMineral Area Regional Medical Center Medical CenterED Clinical Summaryon 54-31-7255MN Clinical SummaryNormValley Presbyterian Hospital Medical CenterED Note-Physicianon 56-13-9385GE Note-PhysicianNewark HospitalComment on above:Result Comment: Electronically Signed By: Jorge Mcintosh DO\.rufino\Date and Time Signed: 03/26/23 12:29ESTED Patient Education Noteon 38-97-5138CV Patient Education NoteNoMineral Area [facility] Medical [facility] Patient Summaryon 31-28-7727MR Patient SummaryNoProMedica Defiance Regional HospitalConsent for Treatmenton 36-78-4908Codgoed for Treatment [id number]#1.00TIFWyandot Memorial HospitalDischarge Instructionson 68-22-1216Ffayxshsd Instructions [id number]#1.00TIFFShriners Hospitals for Children Medical CenterED Clinical Summaryon 52-40-2711TC Clinical SummaryNormValley Presbyterian Hospital Medical CenterED Note-Physicianon 62-21-2425CU Note-PhysicianNewark HospitalComment on above:Result Comment: Electronically Signed By: Landon Tidwell PA-C.br\Date and Time Signed: 03/23/2313:46 EST\.br\Electronically Co-Signed By: Nikhil Tubbs DO.rufino\Date and Time Co- Signed: 03/23/2315:51 ESTED Patient Education Noteon 59-71-9977ST Patient Education NoteNormOhio State [facility] Patient Summaryon 82-20-4053AF Patient SummaryNoProMedica Defiance Regional HospitalConsent for Treatmenton 58-60-4108Hwalnhv for [id number]#1.00TIFF Newark HospitalDischarge Instructionson 71-87-7387Vwogmldvo [id number]#1.00TIFFNormOhio State Harding Hospital Clinical Summaryon 61-44-1855HM Clinical SummaryNormBlanchard Valley [facility] System [facility] CenterED Note-Physicianon 50-43-0703BM Note-PhysicianNoProMedica Defiance Regional HospitalComment on above:Result Comment: Electronically Signed By: Landon Tidwell PA-C\.br\Date and Time Signed: 03/20/2313:40 EST\.br\Electronically Co-Signed By: Elisa Sánchez DO\.br\Date and Time Co- Signed: 03/20/23 15:13 ESTED Patient Education Noteon 31-73-1697TN Patient Education NoteNormOhio State Harding Hospital Patient Summaryon 83-45-7618OX Patient SummaryNoProMedica Defiance Regional HospitalAuto Diffon 03-11-2023 Basophils/100 WBC (Bld)0.3 %Normal0.0-2.0[facility] HospitalComment on above:Order Comment: Order Added by Discern Expert.Performed By: #### 6683295, 4594126, 9907569, 56503374, 3655184, 6983467 ####[facility] [address] [place], [place] [address]Kfdwhdwfs/Leukocytes Auto (Bld) [Pure # fraction]0.0 E9/LNormal0.0-0.2[facility] Shock Trauma CenterComment on above: Order Comment: Order Added by Discern Expert.Performed By: #### 3911397, 7235883, 0121278, 44036897, 6395532, 3968055 ####[facility] [address] [place], [place] [address]Gimgmzzmbeu/100 WBC (Bld)5.6 %Normal 0.0-8.0[facility] HospitalComment on above:Order Comment: Order Added by Discern Expert.Performed By: #### 1468759, 3403919, 6609663, 83742837, 6023332, 7615621 ####[facility] [address] [place], [place] [address]Ojafwgozhza/Leukocytes Auto (Bld) [Pure # fraction]0.3 E9/LNormal0.0-0.5 [facility] HospitalComment on above:Order Comment: Order Added by Discern Expert.Performed By: #### 8190340, 5273323, 4860057, 00044426, 5408557, 1546134 ####[address] [place], [place] [address]Wqluyszybwl/100 WBC (Bld)28.4 %Pbltvy59.0-50.0[facility] Comment on above:Order Comment: Order Added by Discern Expert.Performed By: #### 5506568, 8655045, 8120165, 79786297, 4193987, 1296014 ####[address] [place], [place] [address]Xqzvrjpcgwi/Leukocytes Auto (Bld) [Pure # fraction]1.8 E9/LNormal1.0-4.0[facility] HospitalComment on above:Order Comment: Order Added by Discern Expert.Performed By: #### 9330351, 4966712, 5391575, 11622792, 1979307, 8558577 ####[facility] [address] [place], [place] [address]Difkqoabq/100 WBC (Bld)9.4 % Normal4.0-14.0[facility] Berger HospitalComment on above:Order Comment: Order Added by Gregory Expert.Performed By: #### 4736945, 4176078, 1392035, 27336812, 9564276, 2316962 ####[facility] [address] [place], [place] [address]Cspbnarem/Leukocytes Auto (Bld) [Pure # fraction]0.6 E9/L Normal0.2-1.0[facility] HospitalComment on above:Order Comment: Order Added by Discern Expert.Performed By: #### 5630241, 2445011, 2783332, 40187120, 7893808, 1711136 ####[address] [place], [place] [address]Oudbbujwsvd/100 WBC (Bld)56.3 %Mwrpqt28.0-75.0[facility] HospitalComment on above:Order Comment: Order Added by Discern Expert. Performed By: #### 3908893, 5265492, 1460843, 89157789, 8697765, 4790577 ####[address] [place] [address] Neutrophils/Leukocytes Auto (Bld) [Pure # fraction]3.5 E9/LNormal2.0-7.5FClermont County HospitalComment on above:Order Comment: Order Added by Discern Expert.Performed By: #### 9754939, 0207313, 7543367, 11629154, 5603792, 3749990 ####[address] [place], [place] [address]UJRfc 88-41-2901Ugjgu gap [Moles/Vol]9 mmol/LNormal6-16[facility] Comment on above:Performed By: #### 3457581, 9634710, 9162373, 76790991, 3971910, 1042737 ####[address] [place], [place] [address]NLY/Creat Ratio13 No VpalaXkflcp22-59KmgisaOhiohealth Berger HospitalComment on above:Performed By: #### 8556194, 8665051, 1934676, 41216406, 2146814, 5665082 ####[address] [place], [place] [address]Luycohn [Mass/Vol]8.5 mg/dLLow8.9-11.1FClermont County HospitalComment on above:Performed By: #### 3480804, 2676506, 0156445, 99883162, 6502150, 3609269 ####[facility] [address] [place], [place] [address]Nqdawkqd [Moles/Vol]105 mmol/NBasvgz276-873PhzvqrOhiohealth Berger HospitalComment on above:Performed By: #### 4189049, 6616511, 1338778, 16550479, 1070716, 6520106 ####[address] [address]SQ8 [Moles/Vol]27 mmol/EEuwwsp39-15ExaspbOhiohealth Berger HospitalComment on above:Performed By: #### 0464970, 6237402, 1843661, 39245896, 3588177, 7494116 ####[address] [address]Peoyjypjec [Mass/Vol]0.7 mg/dLNormal0.5-1.3FClermont County HospitalComment on above:Performed By: #### 5595930, 8952367, 8859450, 49195317, 3868822, 3033635 ####[address] [address]Vxjluph [Mass/Vol]104 mg/dLNormal 55-199Ohio[facility] Berger HospitalComment on above:Performed By: #### 6994590, 6426184, 0155186, 24500936, 0468246, 0642202 ####[address] [address]Pudtqoxre [Moles/Vol]4.0 mmol/LNormal 3.5-5.3FClermont County HospitalComment on above:Performed By: #### 6349283, 5067222, 0853732, 19805218, 7033707, 1027704 ####[facility] [address] [place], [place] [address]Httfrg [Moles/Vol]137 mmol/LNormal 135-145[facility] HospitalComment on above:Performed By: #### 5150765, 8192842, 1943404, 19361474, 4654091, 0955594 ####[facility] [address] [place], [place] [address]Qxhd nitrogen [Mass/Vol]9 mg/dLNormal 5-21[facility] HospitalComment on above:Performed By: #### 5685821, 5261784, 0217917, 17744799, 2428911, 0052589 ####[address] [place], [place] [address]QGI w/ Auto Diffon 03-11-2023 Erythrocyte distribution width (RBC) [Ratio]13.1 %Oojxob11.9-14.2FClermont County HospitalComment on above:Performed By: #### 4930910, 2246088, 7019672, 35347486, 1157656, 8820169 ####[address] [address]Lwflxxgoqw (Bld) [Volume fraction]46.1 %High 34.0-46.0[facility] HospitalComment on above:Performed By: #### 2002609, 8520732, 7083142, 70108728, 0174642, 1778734 ####[address] [address]Qstfqgccbp (Bld) [Mass/Vol]15.4 g/dL Xriumm57.0-16.0[facility] HospitalComment on above:Performed By: #### 2604364, 0439114, 3944237, 99434234, 0804371, 6922939 ####[address] [address]OXX (RBC) [Entitic mass]32.0 mrJkoace57.0-34.0[facility] HospitalComment on above:Performed By: #### 8972718, 7572176, 3166370, 62078033, 3995973, 5607310 ####[address] [address]ONJA (RBC) [Mass/Vol]33.5 g/dL Nyyubf62.4-36.0[facility] HospitalComment on above:Performed By: #### 6247330, 6968945, 4960886, 94744038, 4063458, 1842806 ####[address] [address]QIN (RBC) [Entitic vol]95.7 fL Hmvvkf15.0-100.0[facility] HospitalComment on above:Performed By: #### 6161501, 1655544, 5854784, 74605715, 6462063, 3073340 ####[address] [address]Wxgawtwa mean volume (Bld) [Entitic vol]9.0 fLNormal6.4-10.8[facility] Berger HospitalComment on above: Performed By: #### 0075854, 4445266, 8424537, 78480648, 4263193, 0413457 ####[address] [address] Platelets (Bld) [#/Vol]248.0 E9/JGiafaq500.0-500.0[facility] Comment on above:Performed By: #### 5046735, 7334370, 3502626, 93044759, 5454887, 6751773 ####[address] [address]TYR (Bld) [#/Vol]4.8 E12/LNormal4.3-5.9[facility] HospitalComment on above:Performed By: #### 6823966, 0006841, 7679941, 96751653, 6468070, 5916430 ####[address] [address]CVR corrected for nucl RBC Auto (Bld) [#/Vol]6.2 E9/LNormal 4.0-11.0[facility] HospitalComment on above:Performed By: #### 4046023, 6454417, 3193170, 59917823, 7056952, 9705551 ####[facility] [address] [place], [place] [address]YVYBVNFOFBypwqnn By: SYSTEM SYSTEM on 95-03-3119Fxjwifm [Mass/Vol]4.1 g/dLNormal3.3 - 5.0 gm/dLRemisol Chem Albumin/Globulin [Mass ratio]1.4 {ratio}Normal1.1 - 2.2Remisol ChemAlk Phos68 [iU]/fXlrlhg94 - 98 Int._Unit/LRemisol TmgwWYD31 [iU]/dHigh6 - 46 Int._Unit/L Remisol ChemAnion gap [Moles/Vol]9 mmol/LNormal6 - 16 mEq/LRemisol NhapSZP60 [iU]/dHigh5 - 43 Int._Unit/LRemisol ChemBili Direct0.2 mg/dLNormal0.1 - 0.4 mg/dLRemisol ChemBili Indirect0.4 mg/dLNormal0.1 - 0.9 mg/dLRemisol ChemBili Total0.6 mg/dLNormal0.0 - 1.1 mg/dLRemisol ChemCalcium [Mass/Vol]8.5 mg/dLLow8.9 - 11.1 mg/dLRemisol ChemChloride [Moles/Vol]105 mmol/UDswbhl092 - 111 mmol/L Remisol ChemCO2 [Moles/Vol]27 mmol/RMdtiwm12 - 31 mmol/LRemisol ChemCreatinine [Mass/Vol]0.7 mg/dLNormal0.5 - 1.3 mg/dLRemisol ChemeGFRmL/min/1.73 q0Xtggfi >=59mL/min/1.73 b6Hdwyqkb ChemGlobulin (S) [Mass/Vol]3.0 g/dLNormal1.4 - 4.0 gm/dLRemisol ChemGlucose [Mass/Vol]104 mg/gOOawstt61 - 199 mg/dLRemisol Chem Lipase Lvl15 unit/CGlwmdq95 - 58 unit/LRemisol ChemPotassium [Moles/Vol]4.0 mmol/LNormal3.5 - 5.3 mmol/LRemisol ChemProtein [Mass/Vol]7.1 g/dLNormal6.0 - 7.8 gm/dLRemisol ChemSodium [Moles/Vol]137 mmol/IHlzyjd825 - 145 mmol/LRemisol ChemUrea nitrogen [Mass/Vol]9 mg/dLNormal5 - 21 mg/dLRemisol ChemUrea nitrogen/Creatinine [Mass ratio]13 mg/dmQwsxis57 - 20Remisol ChemConsent for Treatmenton 50-21-0182Egbxkuc for Treatment [id number]#1.00TIFWyandot Memorial HospitalDischarge Instructionson 39-81-1784Ufwdwhhjl Instructions [id number]#1.00TIFMercy Health Allen Hospital Clinical Summaryon 37-99-3448IJ Clinical SummaryNoC[facility] Note-Physicianon 29-73-4572DX Note-PhysicianNewark HospitalComment on above:Result Comment: Electronically Signed By: Jorge Mcintosh DO\.br\Date and Time Signed: 03/11/23 10:39ESTED Patient Education Noteon 88-36-5591NS Patient Education NoteNoC[facility] Patient Summaryon 71-64-0175GM Patient SummaryNo[facility] HEMATOLOGYOrdered By: SYSTEM SYSTEM on 95-15-0364Tumqwvalm/100 WBC (Bld)0.3 % Normal0.0 - 2.0 %[facility] HemeAutoSSBasophils/Leukocytes Auto (Bld) [Pure # fraction]0.0 E9/LNormal0.0 - 0.2 E9/LFTMC HemeAutoSSEosinophils/100 WBC (Bld)5.6 %Normal0.0 - 8.0 %[facility] HemeAutoSSEosinophils/Leukocytes Auto (Bld) [Pure # fraction]0.3 E9/LNormal0.0 - 0.5 E9/LFTMC HemeAutoSSLymphocytes/100 WBC (Bld) 28.4 %Mfyzzf23.0 - 50.0 %[facility] HemeAutoSSLymphocytes/Leukocytes Auto (Bld) [Pure # fraction]1.8 E9/LNormal1.0 - 4.0 E9/LFTMC HemeAutoSSMonocytes/100 WBC (Bld)9.4 %Normal4.0 - 14.0 %[facility] HemeAutoSSMonocytes/Leukocytes Auto (Bld) [Pure # fraction]0.6 E9/LNormal0.2 - 1.0 E9/LFTMC HemeAutoSSNeutrophils/100 WBC (Bld) 56.3 %Knauyc15.0 - 75.0 %[facility] HemeAutoSSNeutrophils/Leukocytes Auto (Bld) [Pure # fraction]3.5 E9/LNormal2.0 - 7.5 E9/LFT[facility] HemeAutoSSHEMATOLOGYOrdered By: Radha Vivar on [id number] distribution width (RBC) [Ratio]13.1 %Ynhbgu82.9 - 14.2 %[facility] HemeAutoSSHematocrit (Bld) [Volume fraction]46.1 %High34.0 - 46.0 %[facility] HemeAutoSSHemoglobin (Bld) [Mass/Vol]15.4 g/eZGkklvy64.0 - 16.0 gm/dLFTMC HemeAutoSSMCH (RBC) [Entitic mass]32.0 edJwzpez91.0 - 34.0 pgFTMC HemeAutoSSMCHC (RBC) [Mass/Vol]33.5 g/dYMmuojh92.4 - 36.0 gm/dLFTMC HemeAutoSSMCV (RBC) [Entitic vol]95.7 lYNyjmql29.0 - 100.0 fLFTMC HemeAutoSSPlatelet mean volume (Bld) [Entitic vol]9.0 fLNormal6.4 - 10.8 fLFTMC HemeAutoSSPlatelets (Bld) [#/Vol]248.0 E9/JXggfop759.0 - 500.0 E9/LFT[facility] HemeAutoSSRBC (Bld) [#/Vol]4.8 E12/LNormal4.3 - 5.9 E12/LFT[facility] HemeAutoSSWBC corrected for nucl RBC Auto (Bld) [#/Vol]6.2 E9/LNormal4.0 - 11.0 E9/LFTMC HemeAutoSSHep Func Panelon 03-11-2023 Albumin [Mass/Vol]4.1 g/dLNormal3.3-5.0[facility] HospitalComment on above:Performed By: #### [id number], [id number], 9137161, [id number], 2438180, [id number] ####[facility] [address] [place] [address] Albumin/Globulin [Mass ratio]1.4 {ratio}Normal1.1-2.2FClermont County Hospital Comment on above:Performed By: #### [id number], 2285607, 4792882, [id number], 8664267, 3506167 ####[address] [place], [place] [address]Lse Phos68 Int._Unit/IQcjhfv20-12VftchdOhiohealth Berger Hospital Comment on above:Performed By: #### [id number], 6771491, 4041788, [id number], 9014170, 6415678 ####[facility] [address] [place], [place] [address]OFJ92 Int._Unit/LHigh6-46[facility] HospitalComment on above:Performed By: #### [id number], 9396715, 3458296, 05521915, 3278059, 7693181 ####[address] [place], [place] [address]PYH69 Int._Unit/LHigh5-43[facility] HospitalComment on above: Performed By: #### [id number], 9859320, 4700922, 45898566, 5762023, 8084415 ####[address] [place], [place] [address]Bxop Direct0.2 mg/dLNormal0.1-0.4FClermont County HospitalComment on above: Performed By: #### [id number], 9189582, 7802842, 28500618, 0505743, 2700725 ####[facility] [address] [place] [address]Qitp Indirect0.4 mg/dLNormal0.1-0.9[facility] HospitalComment on above: Performed By: #### 9621530, 5074876, 5035752, 84152239, 6071632, 1225797 ####[address] [address]Rorz Total0.6 mg/dLNormal0.0-1.1FClermont County HospitalComment on above:Performed By: #### 5588015, 2454250, 3924152, 09576059, 5175439, 2262813 ####[address] [address]Baeefncl (S) [Mass/Vol]3.0 g/dLNormal1.4-4.0[facility] Berger HospitalComment on above: Performed By: #### [id number], [id number], [id number], [id number], [id number], [id number] ####[address] [address] Protein [Mass/Vol]7.1 g/dLNormal6.0-7.8Ohiohealth Berger HospitalComment on above:Performed By: #### [id number], [id number], [id number], [id number], [id number], [id number] ####[address] [address] Lipase Levelon 70-72-9385Mnquje Lvl15 unit/DEwgcch74-92PhwghhOhiohealth Berger HospitalComment on above:Performed By: #### [id number], [id number], [id number], [id number], [id number], [id number] ####[address] [address]KKVJJ OTHER TESTSOrdered By: Mayra Rosas on 03-11-2023 Rapid COV Int NEG CtlPass (03/11/23 9:34 AM)NormalFTMC Man SeroRapid COV Int POS CtlPass (03/11/23 9:34 AM)NormalHARPER [facility] Man SeroSARS-CoV+SARS-CoV-2 (COVID-19) Ag IA.rapid Ql (Resp)Not Detected 1 (03/11/23 9:34 AM)NormalNot DetectedHARPER COUNTY COMMUN[facility] [place] Man SeroComment on above:Interpretive Data: The Scifinitiitor System for Rapid Detection of SARS-CoV-2 is a chromatographic digital immunoassay intended for the direct and qualitative detection of SARS-CoV-2 nucleocapsid antigens in nasal swabs from individuals who are suspected of COVID-19 by their healthcare provider withinthe first five days of the onset of [...] of proteins from SARS-CoV-2, not for any otherviruses or pathogens; and, in the [place], this test is only authorized for the duration of the declaration that circumstances exist justifying the authorization of emergency use of in vitro diagnostics for detection and/or diagnosis of the virus that causes COVID-19 under Section 564(b)(1) of the Act,21 U.S.C. 360bbb-3(b)(1), unless the authorization is terminated or revoked sooner.Rapid COVID Antigen ([facility])on 94-57-8340Vslin COV Int NEG CtlPassNormalOhiohealth Berger HospitalComment on above:Performed By: #### [id number] ####[facility] [address], [id number] COV Int POS CtlPassNormalOhiohealth Berger Hospital Comment on above:Performed By: #### [id number] ####[facility] [address] [place], [place]USYR-KeO+SARS-CoV-2 (COVID-19) Ag IA.rapid Ql (Resp)Not detectedNormalNot DetectedOhiohealth Berger Hospital Comment on above:Result Comment: The BeiZ? System for Rapid Detection of SARS-CoV-2 is a chromatographic digital immunoassay intended for the direct and qualitative detection of SARS-CoV-2 nucleocapsid antigensin nasal swabs from individuals who are suspected of COVID-19 by their healthcare provider within th e first five days of the onset of symptoms. Negative results should be treated as presumptive, do not rule out SARS-CoV-2 infection and should not be used as the sole basis for treatment or patient management decisions, including infection control decisions. Negative results should be considered inthe context of a patient?s recent exposures, history [...] detection and/or diagnosis of the virus that cau ses COVID-19 under Section 564(b)(1) of the Act, 21 U.S.C. ? 360bbb-3(b)(1), unless the authorization is terminated or revoked sooner.Performed By: #### [id number] ####[facility] [address] [place], [place] [address]gHFFdm 83-47-2007SUM/1.73 sq M.predicted among non-blacks MDRD (S/P/Bld) [Vol rate/Area]mL/min/{1.73_m2}Normal>=59Ohiohealth Berger HospitalComment on above:Order Comment: Order added by Discern Expert.Performed By: #### [id number], [id number], [id number], [id number], [id number], [id number] ####[facility] [address] [place], [place] [address]RO Liver limitedon 84-68-5801Wi focal intrahepatic lesions noted. The patient is status post cholecystectomy. MACRO: None Signed by: Hrashad Tran 02/14/2023 7:30 AM Dictation workstation: [id number] By: Harshad Tran, STUDY: US ABDOMEN LIMITED LIVER; 02/13/2023 7:27 am INDICATION: Signs/Symptoms:Hx of Hep C. COMPARISON: None. ACCESSION NUMBER(S): [id number] ORDERING CLINICIAN: ANTONIO HUSAIN TECHNIQUE: Multiple images [...] No hydronephrosis or renal calculi are seen. MMODALHarshad Tran MD - 02/14/2023 Interpreted By: Harshad Tran, STUDY: US ABDOMEN LIMITED LIVER; 02/13/2023 7:27 am INDICATION: Signs/Symptoms:Hx of Hep C. COMPARISON: None. ACCESSION NUMBER(S): [id number] ORDERING CLINICIAN: ANTONIO HUSAIN TECHNIQUE: Multiple images [...] Harshad Tran 02/14/2023 7:30 AM Dictation workstation: [id number] [facility] Work Phone: us Liver limitedOrdered By: Harshad rTan on 02-14-2023 [facility] Work Phone: us Liver limitedon 45-48-9069Cosnvipgb Study observation (narrative)[facility] Work Phone: SEROLOGYOrdered By: Zoë Joyce on 60-23-4117YIW.beta subunit (U) [Moles/Vol]NegativeNormalHARPER COUNTY COMM[facility]ITY [facility] Man SeroURINALYSISOrdered By: Zoëradha Joyce on 21-58-8528Nuahhptb LM Ql (Urine sed)Trace /HPFNormalTrace/HPFFT UA Auto SSBilirubin Ql (U)1+ *ABN* (12/13/22 5:52 PM)Invalid Interpretation CodeNegativeFT UA Auto SSCalcium oxalate crystals LM Ql (Urine sed)Present (12/13/22 5:52 PM)NormalFT UA Auto SSClarity (U)SL CLOUDYInvalid Interpretation CodeHARPER COUNTY COMMUNITY [facility]OSPITAL [facility] UA Auto SSColor (U)Yellow (12/13/22 5:52 PM)NormalYellowFT UA Auto SSCrystals LM Ql (Urine sed)Present (12/13/22 5:52 PM)NormalHARPER COUNTY COMM[facility] [place] UA Auto SSEpithelial cells.squamous LM.HPF (Urine sed) [#/Area]/[HPF]Normal0-2/HPFHARPER COUNTY COMMUNITY HOSPITAL [facility] UA Auto SSGlucose Test strip (U) [Mass/Vol] Negative (12/13/22 5:52 PM)NormalNegativeHARPER COUNTY COMM[facility] [place] UA Auto SSHemoglobin Ql (U)Negative (12/13/22 5:52 PM)NormalNegativeHARPER COUNTY [facility] [place] UA Auto SSKetones (U) [Mass/Vol]Trace *NA* (12/13/22 5:52 PM)Invalid Interpretation CodeNegativeHARPER COUNTY [facility] [place] UA Auto SS [place].plasma/[place].RBC (Bld) [Mass ratio]0-3 /HPFNormal0-3/HPFHARPER COUNTY COMMUNITY HOSPITAL [facility] [place] UA Auto SSMucus Ql (Urine sed)3+ (12/13/22 5:52 PM)NormalHARPER COUNTY COMMUNITY [facility]OSP[facility] [place] UA Auto SSNitrite Ql (U)Negative (12/13/22 5:52 PM)NormalNegativeHARPER COUNTY COMM[facility] [place] UA Auto SSpH (U)6.0 *NA* (12/13/22 5:52 PM)Invalid Interpretation Code5.0 - 9.0[facility] UA Auto SSProtein (U) [Mass/Vol]1+ *ABN* (12/13/22 5:52 PM)Invalid Interpretation CodeNegativeHARPER COUNTY [facility] [place] UA Auto SSSpecific gravity (U) [Rel density]>=1.030 *NA* (12/13/22 5:52 PM)Invalid Interpretation Code1.005 - 1.030[facility] [place] UA Auto SSUA Spec DescClean Catch (12/13/22 5:52 PM)NormalHARPER COUNTY COMMUNITY HOSPITAL [facility] [place] UA Auto SSUrobilinogen Qn (U)0.1029496 {Jan'U}/dLNormal0.0 - 1.0 EU/dLHARPER COUNTY COMMUNITY HOSPITAL [facility] [place] UA Auto SSWBC Auto Ql (U)Negative (12/13/22 5:52 PM)NormalNegativeHARPER COUNTY [facility] [place] UA Auto SSWBC LM.HPF (Urine sed) [#/Area]0-5 /HPFNormal0-5/HPFHARPER COUNTY COMMUNITY HOSPITAL [facility] UA Auto SSCHEMISTRYOrdered By: SYSTEM SYSTEM on 55-25-5273Pgrrn gap [Moles/Vol]12 mmol/LNormal6 - 16 mEq/LFTMC RemisolCalcium [Mass/Vol]8.6 mg/dLLow8.9 - 11.1 mg/dLFTMC RemisolChloride [Moles/Vol]110 mmol/L Yplmjj938 - 111 mmol/LFTMC RemisolCO2 [Moles/Vol]19 mmol/LLow21 - 31 mmol/LFTMC RemisolCreatinine [Mass/Vol]0.9 mg/dLNormal0.5 - 1.3 mg/dLFTMC RemisolGFR/1.73 sq M.predicted among non-blacks MDRD (S/P/Bld) [Vol rate/Area]80 mL/min/1.73 m2 Normal>=59mL/min/1.73 m2FT Chem SGlucose [Mass/Vol]132 mg/hGYzvhed29 - 199 mg/dLFTMC RemisolPotassium [Moles/Vol]4.7 mmol/LNormal3.5 - 5.3 mmol/LFTMC RemisolComment on above:Result Comment: 'Specimen hemolyzed. Result may be affected. Redraw is recommended.'Sodium [Moles/Vol]136 mmol/OGtmutp227 - 145 mmol/LFTMC RemisolUrea nitrogen [Mass/Vol]17 mg/dLNormal5 - 21 mg/dLFTMC Remisol Urea nitrogen/Creatinine [Mass ratio]19 mg/axLfrobn78 - 20FTMC RemisolHEMATOLOGY Ordered By: SYSTEM SYSTEM on 77-78-2669Gvnfluseb/100 WBC (Bld)0.2 %Normal0.0 - 2.0 %[facility] HemeAutoSSBasophils/Leukocytes Auto (Bld) [Pure # fraction]0.0 E9/L Normal0.0 - 0.2 E9/LFTMC HemeAutoSSEosinophils/100 WBC (Bld)0.2 %Normal0.0 - 8.0 %[facility] HemeAutoSSEosinophils/Leukocytes Auto (Bld) [Pure # fraction]0.0 E9/L Normal0.0 - 0.5 E9/LFTMC HemeAutoSSLymphocytes/100 WBC (Bld)8.3 %Low14.0 - 50.0 %[facility] HemeAutoSSLymphocytes/Leukocytes Auto (Bld) [Pure # fraction]1.2 E9/L Normal1.0 - 4.0 E9/LFTMC HemeAutoSSMonocytes/100 WBC (Bld)2.4 %Low4.0 - 14.0 % [facility] HemeAutoSSMonocytes/Leukocytes Auto (Bld) [Pure # fraction]0.3 E9/LNormal 0.2 - 1.0 E9/LFTMC HemeAutoSSNeutrophils/100 WBC (Bld)88.9 %High36.0 - 75.0 % [facility] HemeAutoSSNeutrophils/Leukocytes Auto (Bld) [Pure # fraction]12.7 E9/LHigh 2.0 - 7.5 E9/LFTMC HemeAutoSSHEMATOLOGYOrdered By: Frank Strong on 24-06-5959Oudutpokjuh distribution width (RBC) [Ratio]13.1 %Lkyuaa21.9 - 14.2 % [facility] HemeAutoSSHematocrit (Bld) [Volume fraction]42.4 %Wbnmpa45.0 - 46.0 %[facility] HemeAutoSSHemoglobin (Bld) [Mass/Vol]14.1 g/gWPixidj07.0 - 16.0 gm/dLFTMC HemeAutoSSMCH (RBC) [Entitic mass]32.5 jfEcmfep15.0 - 34.0 pgFTMC HemeAutoSSMCHC (RBC) [Mass/Vol]33.4 g/yCMqffbk87.4 - 36.0 gm/dLFTMC HemeAutoSSMCV (RBC) [Entitic vol]97.5 wCBxckkm88.0 - 100.0 fLFTMC HemeAutoSSPlatelet mean volume (Bld) [Entitic vol]8.6 fLNormal6.4 - 10.8 fLFTMC HemeAutoSSPlatelets (Bld) [#/Vol]281.0 E9/HOfwuyo248.0 - 500.0 E9/LFTMC HemeAutoSSRBC (Bld) [#/Vol]4.4 E12/LNormal4.3 - 5.9 E12/LFTMC HemeAutoSSWBC corrected for nucl RBC Auto (Bld) [#/Vol]14.3 E9/LHigh4.0 - 11.0 E9/LFTMC HemeAutoSSAlanine aminotransferase [Enzymatic activity/volume] in Serum or PlasmaOrdered By: Mary Beth Sloan on 85-20-3566UWD [Catalytic activity/Vol]39 U/L7-52[facility]opedic CenterAlbumin [Mass/volume] in Serum or Plasma by Bromocresol green (BCG) dye binding methoOrdered By: Mary Beth Sloan on 92-57-3003Hezywiq BCG dye [Mass/Vol]3.7 g/dL3.5-5.7FAdena Health SystemAlkaline phosphatase [Enzymatic activity/volume] in Serum or PlasmaOrdered By: Mary Beth Sloan on 73-87-7736YEP [Catalytic activity/Vol]70 U/U82-006OrvgqesusCrystal Clinic Orthopedic CenterAmorphous urine sedimentOrdered By: Deb Carmichael on 86-20-4828Nwpcurgqv sediment LM Ql (Urine sed)2+ [LPF][facility] CenterAspartate aminotransferase [Enzymatic activity/volume] in Serum or PlasmaOrdered By: Mary Beth Sloan on 67-00-4974LUC [Catalytic activity/Vol]28 U/H85-14JmrjxjcfeCrystal Clinic Orthopedic CenterAutomated erythrocytes count in urine sediment (number/area)Ordered By: Deb Carmichael on 33-61-0710ZER Auto (Urine sed) [#/Area]10-19 [HPF]0-4FAdena Health SystemAutomated leukocytes count in urine sediment (number/area)Ordered By: Deb Carmichael on 12-10-2022 WBC Auto (Urine sed) [#/Area]3-4 [HPF]0-4FAdena Health System Basophils Auto (Bld) [#/Vol]Ordered By: Mary Beth Sloan on 12-89-7745Czzqzhkdb (Bld) [#/Vol]0.1 10*3/uL0.0-0.2FAdena Health SystemBasophils/100 WBC Auto (Bld)Ordered By: Mary Beth Sloan on 10-74-3326Euzspicxe/100 WBC (Bld) 0.5 %.[facility] CenterBilirubin Test strip Ql (U)Ordered By: Deb Carmichael on 96-57-4321Uyprxbojr Ql (U)NegativeNegativeCrystal Clinic Orthopedic CenterBilirubin.total [Mass/volume] in Serum or PlasmaOrdered By: Mary Beth Bullimore on 03-63-3229Kdkxwzvts [Mass/Vol]0.3 mg/dL0.3-1.0[facility] CenterCalcium [Mass/volume] in Serum or PlasmaOrdered By: Mary Beth Bullimore on 87-70-2222Wtjnhaa [Mass/Vol]8.3 mg/dL8.6-10.3FAdena Health SystemCarbon dioxide, total [Moles/volume] in Serum or PlasmaOrdered By: Mary Beth Bullimore on 06-30-4413ZJ7 [Moles/Vol]22.2 mmol/L21.0-31.0[facility] CenterChloride [Moles/volume] in Serum or PlasmaOrdered By: Mary Beth Bullimore on 18-59-6411Gkmqqqmh [Moles/Vol]112 mmol/R81-320CttqldcppCrystal Clinic Orthopedic CenterColor Auto (U)Ordered By: Deb Carmichael on 12-10-2022 Color (U)YellowYellowCrystal Clinic Orthopedic CenterCreatinine [Mass/volume] in Serum or PlasmaOrdered By: Mary Beth Sebastienimore on 34-84-8029Udiurqriob [Mass/Vol]0.77 mg/dL0.60-1.20[facility] CenterEosinophils Auto (Bld) [#/Vol]Ordered By: Mary Beth Bullimore on 24-05-4012Pbradedzdrp (Bld) [#/Vol] 0.2 10*3/uL0.0-0.45[facility] CenterEosinophils/100 WBC Auto (Bld)Ordered By: Mary Beth Bullimore on 83-87-3232Gnazdfmmmcp/100 WBC (Bld)1.7 %. [facility] CenterErythrocyte distribution width Auto (RBC) [Ratio]Ordered By: Mary Beth Bullimore on 88-55-9011Clioclofrzo distribution width (RBC) [Ratio]13.3 %11.9-15.3FAdena Health SystemGlobulin Calc (S) [Mass/Vol]Ordered By: Mary Beth Bullimore on 67-79-7148Jciouyme (S) [Mass/Vol]3.1 g/dLCrystal Clinic Orthopedic CenterGlucose [Mass/volume] in Serum or Plasma Ordered By: Mary Beth Sloan on 45-73-2026Hjbrmxe [Mass/Vol]111 mg/mK51-370 [facility] CenterComment on above:ADA recommended reference rangeRandom Glucose Reference Range is dependent on time and content of last meal. Glucose of more than 200 mg/dL in a nonstressed, ambulatory subject supports the diagnosisof Diabetes Mellitus.Hematocrit Auto (Bld) [Volume fraction]Ordered By: Mary Beth Sloan on 80-61-7946Uzmuwqrsen (Bld) [Volume fraction]39.3 %34.0-46.4FAdena Health SystemHemoglobin [Mass/volume] in BloodOrdered By: Mary Beth Sloan on 52-89-6133Bekcenmrge (Bld) [Mass/Vol]13.4 g/dL11.8-15.4FAdena Health SystemKetones Auto test strip (U) [Mass/Vol]Ordered By: Deb Carmichael on 54-57-9159Xejzxdp (U) [Mass/Vol]NegativeNegativeCrystal Clinic Orthopedic CenterLaboratory - UrinalysisOrdered By: Deb Carmichael on 62-09-9881Etyrrwu casts LM Ql (Urine sed)0-8 [LPF]0-8[facility] CenterLeukocytes [#/volume] corrected for nucleated erythrocytes in Blood by Automated counOrdered By: Mary Beth Sloan on 68-62-9743QMS corrected for nucl RBC Auto (Bld) [#/Vol]11.1 10*3/uL 3.8-11.6FAdena Health SystemLymphocytes Auto (Bld) [#/Vol]Ordered By: Mary Beth Sloan on 14-26-6834Qoouhbcpzub (Bld) [#/Vol]2.2 10*3/uL1.00-4.8 [facility] CenterLymphocytes/100 WBC Auto (Bld)Ordered By: Mary Beth Sloan on 60-17-2513Vnektrfzanf/100 WBC (Bld)20.0 %.[facility] HospitalH Auto (RBC) [Entitic mass]Ordered By: Mary Beth Bullimore on 17-40-0653ZNX (RBC) [Entitic mass]33.4 pg24.7-34.3FMercy Health West HospitalHC Auto (RBC) [Mass/Vol]Ordered By: Mary Beth Bullimore on 77-76-1072AXOT (RBC) [Mass/Vol]34.0 g/dL32.0-35.0[facility] CenterMCV Auto (RBC) [Entitic vol]Ordered By: Mary Beth Bullimore on 08-38-4965NDD (RBC) [Entitic vol]98.2 lZ43-189IutlgdpufCrystal Clinic Orthopedic CenterMonocyte distribution width [Entitic volume] in Blood by AutomatedOrdered By: Mary Beth Bullimore on 12-10-2022 Monocyte distribution width Auto (Bld) [Entitic vol]18.95 %0.00-20.00[facility] CenterMonocytes Auto (Bld) [#/Vol]Ordered By: Mary Beth Bullimore on 35-14-5749Msnkkfzws (Bld) [#/Vol]0.7 10*3/uL0.0-0.8[facility] CenterMonocytes/100 WBC Auto (Bld)Ordered By: Mary Beth Bullimore on 12-10-2022 Monocytes/100 WBC (Bld)6.2 %.[facility] CenterNeutrophils Auto (Bld) [#/Vol]Ordered By: Mary Beth Bullimore on 10-79-8958Ggelflnhrmi (Bld) [#/Vol] 7.9 10*3/uL1.8-7.7FAdena Health SystemNeutrophils/100 WBC Auto (Bld)Ordered By: Mary Beth Bullimore on 54-55-2253Nrxiejslqvw/100 WBC (Bld)71.6 %. [facility] CenterNitrite Test strip Ql (U)Ordered By: Deb Carmichael on 54-17-2944Awdvije Ql (U)NegativeNegativeCrystal Clinic Orthopedic CenterNo Panel InformationOrdered By: Mary Beth Croweimore on 66-74-7996Stacunmaj GFR (CKD-EPI)> 60.0 mL/MinCrystal Clinic Orthopedic CenterPharmacy Creatinine Clearance (Vsau652.22[facility] CenterNucleated erythrocytes [Presence] in Blood by Automated countOrdered By: Mary Beth Sloan on 12-10-2022 Nucleated RBC Auto Ql (Bld)0.1 /100{WBC}0-0.5FAdena Health System Platelet mean volume Auto (Bld) [Entitic vol]Ordered By: Mary Beth Croweimore on 01-01-7473Zboyidol mean volume (Bld) [Entitic vol]8.5 fL6.3-10.7FAdena Health SystemPlatelets Auto (Bld) [#/Vol]Ordered By: Mary Beth Croweimore on 92-19-5075Gadepuiyl (Bld) [#/Vol]228 10*3/vU467-215UpfcbvregCrystal Clinic Orthopedic CenterPotassium [Moles/volume] in Serum or PlasmaOrdered By: Mary Beth Sloan on 80-52-9397Ymjpuyjag [Moles/Vol]3.9 mmol/L3.5-5.1FAdena Health SystemProtein Auto test strip (U) [Mass/Vol]Ordered By: Deb Carmichael on 72-34-7124Qeidefv (U) [Mass/Vol]NegativeNegativeCrystal Clinic Orthopedic CenterProtein [Mass/volume] in Serum or PlasmaOrdered By: Mary Beth Croweimore on 52-38-7279Bdhilwi [Mass/Vol]6.8 g/dL6.4-8.9[facility] CenterRBC Auto (Bld) [#/Vol]Ordered By: Mary Beth Croweimore on 72-82-2301ABW (Bld) [#/Vol] 4.00 10*6/uL3.60-5.00[facility]tering Health Hamiltonerum or plasma albumin/globulin mass ratioOrdered By: Mary Beth Croweimore on 12-10-2022 Albumin/Globulin [Mass ratio]1.2 {ratio}[facility] Hamiltonerum or plasma anion gap determinationOrdered By: Mary Beth Sloan on 12-03-9544Gbpnt gap [Moles/Vol]6.7 mmol/L6.0-15.0[facility] Hamiltonodium [Moles/volume] in Serum or PlasmaOrdered By: Mary Beth Sloan on 12-10-2022 Sodium [Moles/Vol]137 mmol/N678-691GwpxtwfcrKettering Health Hamiltonpecific gravity Auto test strip (U) [Rel density]Ordered By: Deb Carmichael on 37-80-2219Gilhghnw gravity (U) [Rel density]1.0201.001-1.030[facility] Hamiltonquamous epithelial cells detection in urine sediment by light microscopyOrdered By: Deb Carmichael on 08-44-5453Urhxodxqpe cells.squamous LM Ql (Urine sed)5-9 [HPF]0-2FAdena Health SystemUrea nitrogen [Mass/volume] in Serum or PlasmaOrdered By: Mary Beth Sloan on 81-70-7722Pous nitrogen [Mass/Vol]12 mg/dL7-25[facility] CenterUrine bacteria detection by automated methodOrdered By: Deb Carmichael on 06-02-0875Kwlgurdj Auto Ql (U)3+None SeenCrystal Clinic Orthopedic CenterUrine clarity by refractometry automatedOrdered By: Deb Carmichael on 89-39-7232Suredaw Refractometry automated (U)TurbidClearFAdena Health SystemUrine glucose measurement by automated test strip (mass/volume)Ordered By: Deb Carmichael on 36-29-2056Bzuzwgf Auto test strip (U) [Mass/Vol]Normal mg/dLNormal [facility] CenterUrine hemoglobin detection by automated test stripOrdered By: Deb Carmichael on 78-67-8699Vpwskexnet Auto test strip Ql (U) NegativeNegativeCrystal Clinic Orthopedic CenterUrine leukocyte esterase detection by automated test stripOrdered By: Deb Carmichael on 12-10-2022 Leukocyte esterase Auto test strip Ql (U)1+NegativeCrystal Clinic Orthopedic CenterUrine sediment crystal identification by light microscopyOrdered By: Deb Carmichael on 13-58-8494Mbguacxk LM Nom (Urine sed)None seen [HPF][facility] CenterUrobilinogen Auto test strip (U) [Mass/Vol]Ordered By: Deb Carmichael on 56-41-2611Zgfmfzkdjuhl (U) [Mass/Vol]Normal mg/dLNormal [facility] CenterWBC Auto (Bld) [#/Vol]Ordered By: Mary Beth Sloan on 84-37-7606SPF (Bld) [#/Vol]11.1 10*3/uL3.8-11.6FAdena Health SystempH Auto test strip (U)Ordered By: Deb Carmichael on 35-54-0799qP (U)8.0 [pH]5.0-9.0[facility] CenterProvider Note - ED v3on 47-83-0109Jgjjvrup Note - ED z2Lwslxhpd Note: Results/Vital Signs: Pediatric Clinical Scoring (RADHA) [...] 22:29 BP Systolic (mm Hg): 125 11-04-2022 22: BP Diastolic (mm Hg): 77 11-04-2022 22:29 [...] SIGNS: T PRBP SpO2O2(LPM) %FiO2 Method 04-Nov-2022 22:29:00-36.67501915/77 96 room air, no respiratory support MDM [...] she always goes to the same place, [facility] ER and that she is not [...] Data Referenced From Triage - ED 04-Nov-2022 22:29NoUnityPoint Health-[facility] 54-11-1100Rpgnii - EDQuick Triage: Are You no Have You Given [...] (V5) oriented Gadiel Score: 15 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 Patient has homicidal thoughts: no [...] Last Updated: 04-Nov-2022 22:50 by Jayna August (DARSHAN)NormalGrace HospitalBilirubin Test strip Ql (U)Ordered By: Mary Beth Sloan on 10-16-2022 Bilirubin Ql (U)NegativeNegativeCrystal Clinic Orthopedic CenterColor Auto (U) Ordered By: Mary Beth Sloan on 25-11-8134Qikbr (U)YellowYellowCrystal Clinic Orthopedic CenterKetones Auto test strip (U) [Mass/Vol]Ordered By: Mary Beth Sloan on 80-28-5967Neognyc (U) [Mass/Vol]NegativeNegRiverview Health InstituteNitrite Test strip Ql (U)Ordered By: Mary Beth Sloan on 76-44-4361Fkldrjs Ql (U)NegativeNegRiverview Health InstituteProtein Auto test strip (U) [Mass/Vol]Ordered By: Mary Beth Sloan on 56-35-6901Zhhtuzw (U) [Mass/Vol]NegativeNegSumma Health Wadsworth - Rittman Medical Centerpecific gravity Auto test strip (U) [Rel density]Ordered By: Mary Beth Sloan on 10-16-2022 Specific gravity (U) [Rel density]1.0171.001-1.030[facility] CenterUrine clarity by refractometry automatedOrdered By: Mary Beth Sloan on 50-43-2282Lrwirsc Refractometry automated (U)ClearCleMercy Health Clermont HospitalUrine glucose measurement by automated test strip (mass/volume) Ordered By: Mary Beth Sloan on 76-33-5301Jxhbcwl Auto test strip (U) [Mass/Vol] Normal mg/dLNoUniversity Hospitals Samaritan Medical CenterUrine hemoglobin detection by automated test stripOrdered By: Mary Beth Sloan on 39-58-3072Jfdmwidomk Auto test strip Ql (U)NegativeNegRiverview Health InstituteUrine leukocyte esterase detection by automated test stripOrdered By: Mary Beth Sloan on 08-00-2592Mdwesiynw esterase Auto test strip Ql (U)NegativeNegRiverview Health InstituteUrobilinogen Auto test strip (U) [Mass/Vol]Ordered By: Mary Beth Sloan on 68-44-1228Ljlaqbisrymf (U) [Mass/Vol]Normal mg/dLOur Lady Of Mercy Hospital - AndersonpH Auto test strip (U)Ordered By: Mary Beth Sloan on 39-40-2814kL (U)7.0 [pH]5.0-9.0[facility] Automated erythrocytes count in urine sediment (number/area)Ordered By: Narciso Bennett on 65-31-5934QZT Auto (Urine sed) [#/Area]1-2 [HPF]0-4FAdena Health SystemAutomated leukocytes count in urine sediment (number/area)Ordered By: Narciso Bennett on 63-92-2241HRD Auto (Urine sed) [#/Area]3-4 [HPF]0-4FAdena Health SystemBilirubin Test strip Ql (U)Ordered By: Narciso Bennett on 86-84-6224Gbiomyric Ql (U)NegativeNegativeCrystal Clinic Orthopedic CenterColor Auto (U)Ordered By: Narciso Bennett on 82-80-1182Nwgcb (U)YellowYellowCrystal Clinic Orthopedic CenterKetones Auto test strip (U) [Mass/Vol]Ordered By: Narciso Bennett on 17-85-7795Dztsfml (U) [Mass/Vol]TraceNegativeCrystal Clinic Orthopedic CenterLaboratory - UrinalysisOrdered By: Narciso Bennett on 24-61-4688Ucfpgnu casts LM Ql (Urine sed)0-8 [LPF]0-8[facility]opedic CenterNitrite Test strip Ql (U)Ordered By: Narciso Bennett on 54-83-0206Cfzqpxu Ql (U)Negative NegativeCrystal Clinic Orthopedic CenterProtein Auto test strip (U) [Mass/Vol] Ordered By: Narciso Bennett on 70-07-4334Bpdivlt (U) [Mass/Vol]Trace mg/dLNegRegency Hospital Toledopecific gravity Auto test strip (U) [Rel density]Ordered By: Narciso Bennett on 36-88-2692Cmqjfway gravity (U) [Rel density] 1.0371.001-1.030[facility] Hamiltonquamous epithelial cells detection in urine sediment by light microscopyOrdered By: Narciso Bennett on 40-16-8747Qzboofczaq cells.squamous LM Ql (Urine sed)1-2 [HPF]0-2FAdena Health SystemUrine bacteria detection by automated methodOrdered By: Narciso Bennett on [id number] Auto Ql (U)1+None SeenCrystal Clinic Orthopedic CenterUrine clarity by refractometry automatedOrdered By: Narciso Bennett on 70-86-6086Fxlbzpx Refractometry automated (U)CloudyClearFAdena Health SystemUrine glucose measurement by automated test strip (mass/volume) Ordered By: Narciso Bennett on 11-58-2373Xrvmklc Auto test strip (U) [Mass/Vol] Normal mg/dLNormalFirsthealth Regional Medical CenterUrine hemoglobin detection by automated test stripOrdered By: Narciso Bennett on 53-28-5477Ylzccbzult Auto test strip Ql (U)NegativeNegRiverview Health InstituteUrine leukocyte esterase detection by automated test stripOrdered By: Narciso Bennett on 08-02-2022 Leukocyte esterase Auto test strip Ql (U)NegativeNegativeCrystal Clinic Orthopedic CenterUrobilinogen Auto test strip (U) [Mass/Vol]Ordered By: Narciso Bennett on 03-87-0163Wlsqwbzrmeju (U) [Mass/Vol]Normal mg/dLNormOur Lady of Mercy HospitalpH Auto test strip (U)Ordered By: Narciso Bennett on 96-14-5007yP (U)6.5 [pH]5.0-9.0[facility] CenterAutomated erythrocytes count in urine sediment (number/area)Ordered By: Mary Beth Sloan on 35-95-5256ZNW Auto (Urine sed) [#/Area]1-2 [HPF]0-4FAdena Health SystemAutomated leukocytes count in urine sediment (number/area)Ordered By: Mary Beth Sloan on 49-51-3717FYJ Auto (Urine sed) [#/Area]0-1 [HPF]0-4FAdena Health SystemBilirubin Test strip Ql (U)Ordered By: Mary Beth Sloan on 05-93-0384Hysixivij Ql (U)NegativeNegRiverview Health Institute Color Auto (U)Ordered By: Mary Beth Sloan on 88-98-6230Mqnxc (U)YellowYellow [facility] CenterKetones Auto test strip (U) [Mass/Vol]Ordered By: Mary Beth Sloan on 80-46-5188Ethggpo (U) [Mass/Vol]NegativeNegative [facility] CenterLaboratory - UrinalysisOrdered By: Mary Beth Sloan on 77-20-8633Nzvtupi casts LM Ql (Urine sed)None seen [LPF]0-8 [facility] CenterNitrite Test strip Ql (U)Ordered By: Mary Beth Sloan on 16-21-9124Stxvsbr Ql (U)NegativeNegRiverview Health InstituteProtein Auto test strip (U) [Mass/Vol]Ordered By: Mary Beth Sloan on 92-56-4796Waujlgs (U) [Mass/Vol]NegativeNegSumma Health Wadsworth - Rittman Medical Centerpecific gravity Auto test strip (U) [Rel density]Ordered By: Mary Beth Sloan on 63-19-3236Rnzgqhrq gravity (U) [Rel density]1.0171.001-1.030 [facility] Hamiltonquamous epithelial cells detection in urine sediment by light microscopyOrdered By: Mary Beth Sloan on 30-43-2328Ejugdcmfre cells.squamous LM Ql (Urine sed)1-2 [HPF]0-2FAdena Health System Urine bacteria detection by automated methodOrdered By: Mary Beth Sloan on 03-37-1716Vkcpzstd Auto Ql (U)None seenNone SeenCrystal Clinic Orthopedic CenterUrine clarity by refractometry automatedOrdered By: Mary Beth Sloan on 93-80-9446Sxwfnok Refractometry automated (U)TurbidCleMercy Health Clermont HospitalUrine glucose measurement by automated test strip (mass/volume) Ordered By: Mary Beth Sloan on 90-24-2644Prdhruy Auto test strip (U) [Mass/Vol] Normal mg/dLOhioHealthUrine hemoglobin detection by automated test stripOrdered By: Mary Beth Sloan on 70-16-7838Tohcvnfsid Auto test strip Ql (U)NegativeNegRiverview Health InstituteUrine leukocyte esterase detection by automated test stripOrdered By: Mary Beth Sloan on 29-83-1715Nbovkwyes esterase Auto test strip Ql (U)NegativeNegRiverview Health InstituteUrobilinogen Auto test strip (U) [Mass/Vol]Ordered By: Mary Beth Sloan on 64-72-2490Mlqumbhmppqt (U) [Mass/Vol]Normal mg/dLOur Lady Of Mercy Hospital - AndersonpH Auto test strip (U)Ordered By: Mary Beth Sloan on 71-39-8673rN (U)[pH]5.0-9.0[facility] Activated partial thromboplastin time (aPTT) in platelet poor plasma by coagulation aOrdered By: José Miguel Mcnamara on 60-06-1070cSNA Coag (PPP) [Time] 32.5 s25.1-36.5FAdena Health SystemAlbumin [Mass/volume] in Serum or PlasmaOrdered By: José Miguel Mcnamara on 76-17-7369Kygxabq [Mass/Vol]3.6 g/dL 3.2-5.5FAdena Health SystemBasophils Auto (Bld) [#/Vol]Ordered By: José Miguel Mcnamara on 45-99-3956Rqofvavnw (Bld) [#/Vol]0.0 10*3/uL0.0-0.2 [facility] CenterBasophils/100 WBC Auto (Bld)Ordered By: José Miguel Mcnamara on 52-50-3909Fknqeolfp/100 WBC (Bld)0.1 %.[facility] CenterCOVID CepheidOrdered By: José Miguel Mcnamara on 76-01-9856OXPT-CoV-2 (COVID-19) Ab IA QlNegativeNegativeCrystal Clinic Orthopedic CenterComment on above:This is a duplicate Cepheid Xpert Xpress CoV-2/Flu/RSV Plus RNA by RT-PCR result to be used for statistical tracking purpose only.SARS-CoV-2 (COVID-19) RNA LINDSEY+probe Ql (Unsp spec)[facility] HamiltonARS-CoV-2 (COVID- 19) RNA LINDSEY+probe Ql (Unsp spec)[facility] CenterCreatinine and Glomerular filtration rate.predicted panel (S/P/Bld)Ordered By: José Miguel Mcnamara on 31-00-3446Tvhstnwamh [Mass/Vol]0.79 mg/dL0.44-1.03[facility] CenterDirect bilirubin measurementOrdered By: José Miguel Mcnamara on 65-15-7850Iygpxsrjf.direct [Mass/Vol]0.1 mg/dL0.0-0.4FAdena Health SystemEosinophils Auto (Bld) [#/Vol]Ordered By: José Miguel Mcnamara on 03-19-2022 Eosinophils (Bld) [#/Vol]0.0 10*3/uL0.0-0.45[facility] Eosinophils/100 WBC Auto (Bld)Ordered By: José Miguel Mcnamara on 03-19-2022 Eosinophils/100 WBC (Bld)0.8 %.[facility] CenterErythrocyte distribution width Auto (RBC) [Ratio]Ordered By: José Miguel Mcnamara on 03-19-2022 Erythrocyte distribution width (RBC) [Ratio]13.2 %11.9-15.3FAdena Health SystemEstimated glomerular filtration rate (GFR) non- Ordered By: José Miguel Mcnamara on 72-53-4262EOE/1.73 sq M.predicted among non- blacks MDRD (S/P/Bld) [Vol rate/Area]> 60 mL/MinCrystal Clinic Orthopedic CenterGlobulin Calc (S) [Mass/Vol]Ordered By: José Miguel Mcnamara on 03-19-2022 Globulin (S) [Mass/Vol]3.3 g/dLCrystal Clinic Orthopedic CenterHCG ( test) IA.rapid Ql (U)Ordered By: Jorge Dan on 58-54-8504FNC ( test) Ql (U)NegativeCrystal Clinic Orthopedic CenterHematocrit Auto (Bld) [Volume fraction]Ordered By: José Miguel Mcnamara on 15-39-3284Cznualwmcb (Bld) [Volume fraction]40.0 %34.0-46.4FAdena Health SystemHemoglobin [Mass/volume] in BloodOrdered By: José Miguel Mcnamara on 75-99-3631Frukwnckrm (Bld) [Mass/Vol]13.5 g/dL11.8-15.4FAdena Health SystemLaboratory - CoagulationOrdered By: José Miguel Mcnamara on 11-47-3658IE Coag (PPP) [Time]12.4 s 9.0-12.9[facility] CenterLeukocytes [#/volume] corrected for nucleated erythrocytes in Blood by Automated counOrdered By: José Miguel Mcnamara on 91-50-4426HAW corrected for nucl RBC Auto (Bld) [#/Vol]3.2 10*3/uL3.8-11.6 [facility] CenterLymphocytes Auto (Bld) [#/Vol]Ordered By: José Miguel Mcnamara on 16-51-2774Lpippibgjhz (Bld) [#/Vol]1.6 10*3/uL1.00-4.8 [facility] CenterLymphocytes/100 WBC Auto (Bld)Ordered By: José Miguel Mcnamara on 09-27-3147Dertceihqps/100 WBC (Bld)49.4 %.[facility] Auto (RBC) [Entitic mass]Ordered By: José Miguel Mcnamara on 57-58-8869EAY (RBC) [Entitic mass]31.6 pg24.7-34.3FMercy Health West HospitalHC Auto (RBC) [Mass/Vol]Ordered By: José Miguel Mcnamara on 72-09-5654FGXP (RBC) [Mass/Vol]33.8 g/dL32.0-35.0[facility] CenterMCV Auto (RBC) [Entitic vol]Ordered By: José Miguel Mcnamara on 28-12-8054HLZ (RBC) [Entitic vol]93.4 kD41-297NztpugttsCrystal Clinic Orthopedic CenterMonocyte distribution width [Entitic volume] in Blood by AutomatedOrdered By: José Miguel Mcnamara on 87-19-6045Opygqucn distribution width Auto (Bld) [Entitic vol]19.83 % 0.00-20.00[facility] CenterMonocytes Auto (Bld) [#/Vol]Ordered By: José Miguel Mcnamara on 57-57-4823Iyhihrzua (Bld) [#/Vol]0.4 10*3/uL0.0-0.8 [facility] CenterMonocytes/100 WBC Auto (Bld)Ordered By: José Miguel Mcnamara on 84-57-8297Uwtpyxboa/100 WBC (Bld)11.7 %.[facility] CenterNeutrophils Auto (Bld) [#/Vol]Ordered By: José Miguel Mcnamara on 02-07-8357Hevcwthqmns (Bld) [#/Vol]1.2 10*3/uL1.8-7.7FAdena Health SystemNeutrophils/100 WBC Auto (Bld)Ordered By: José Miguel Mcnamara on 03-19-2022 Neutrophils/100 WBC (Bld)38.0 %.[facility] CenterNo Panel InformationOrdered By: José Miguel Mcnamara on 48-31-6334Fsvwjscgj GFR ()> 60 mL/MinCrystal Clinic Orthopedic CenterComment on above:GFR estimated reference range: According to KDOQI guidelines, <60 ml/min/1.73m2 is sufficient todiagnose a patient with chronic kidney disease.Pharmacy Creatinine Clearance (Ozib248.22[facility] CenterNucleated erythrocytes [Presence] in Blood by Automated countOrdered By: José Miguel Mcnamara on 44-20-1318Txxrznewl RBC Auto Ql (Bld)0.3 /100{WBC}0-0.5FAdena Health SystemPlatelet mean volume Auto (Bld) [Entitic vol]Ordered By: José Miguel Mcnamara on 61-33-3442Sycndesi mean volume (Bld) [Entitic vol]9.5 fL6.3-10.7 [facility] CenterPlatelet poor plasma international normalized ratio (INR) by coagulation assay (relatOrdered By: José Miguel Mcnamara on 24-33-2902NQT Coag (PPP) [Relative time]1.1 {INR}[facility] CenterComment on above:INR Therapeutic Range A) Pre- and Peroperative OAT started two weeks before surgery. NOT HIP SURGERY: 1.5 - 2.5 HIP SURGERY: 2 - 3B) Primary and secondary prevention of venous THROMBOSIS: 2 - 3C) Active venous thrombosis, pulmonary embolismand prevention of recurrent venous thrombosis: 2 - 3D) Prevention of arterial thromboembolismincluding patients with mechanical heart valves: 3 - 4.5Platelets Auto (Bld) [#/Vol]Ordered By: José Miguel Mcnamara on 63-39-4495Judvzruis (Bld) [#/Vol]206 10*3/mK883-157DlnhjotirCrystal Clinic Orthopedic CenterProtein [Mass/volume] in Serum or PlasmaOrdered By: José Miguel Mcnamara on 10-65-4538Qrpfgfi [Mass/Vol]6.9 g/dL6.1-7.9[facility] CenterRBC Auto (Bld) [#/Vol]Ordered By: José Miguel Mcnamara on 61-93-9087ABE (Bld) [#/Vol] 4.28 10*6/uL3.60-5.00[facility] Hamiltonerum or plasma alanine aminotransferase measurement without P-5'-P (enzymatic activiOrdered By: José Miguel Mcnamara on 56-86-9810OPI No additional P-5'-P [Catalytic activity/Vol] 86 U/J63-11DcxqysjzaKettering Health Hamiltonerum or plasma albumin/globulin mass ratioOrdered By: José Miguel Mcnamara on 64-74-5897Ixxxhmx/Globulin [Mass ratio]1.1 {ratio}[facility] Hamiltonerum or plasma alkaline phosphatase measurement (enzymatic activity/volume)Ordered By: José Miguel Mcnamara on 51-18-5270JRU [Catalytic activity/Vol]65 U/O41-95FtziachkbKettering Health Hamiltonerum or plasma anion gap determinationOrdered By: José Miguel Mcnamara on 08-03-3594Otbaj gap [Moles/Vol]9.9 mmol/L6.0-15.0[facility] Hamiltonerum or plasma aspartate aminotransferase measurement (enzymatic activity/volume)Ordered By: José Miguel Mcnamara on 17-39-7020DMP [Catalytic activity/Vol]74 U/J92-65YnnjierouKettering Health Hamiltonerum or plasma calcium measurement (mass/volume)Ordered By: José Miguel Mcnamara on 19-64-6433Zxykgen [Mass/Vol]8.3 mg/dL8.2-10.2FRiverside Methodist Hospitalerum or plasma chloride measurement (moles/volume)Ordered By: José Miguel Mcnamara on 03-19-2022 Chloride [Moles/Vol]108 mmol/F94-894MuqtayljaKettering Health Hamiltonerum or plasma glucose measurement (mass/volume)Ordered By: José Miguel Mcnamara on 67-82-6842Esnbsjf [Mass/Vol]100 mg/iH97-740KoeikmlibCrystal Clinic Orthopedic Center Comment on above:ADA recommended reference rangeRandom Glucose Reference Range is dependent on time and content of last meal. Glucose of more than 200 mg/dL in a nonstressed, ambulatory subject supports the diagnosisof Diabetes Mellitus. Serum or plasma non-glucuronidated bilirubin measurement (mass/volume)Ordered By: José Miguel Mcnamara on 06-56-2627Dphawpxsd.indirect [Mass/Vol]0.4 mg/dL [facility] Hamiltonerum or plasma potassium measurement (moles/volume)Ordered By: José Miguel Mcnamara 40-44-8118Wwmgbrjec [Moles/Vol] 3.2 mmol/L3.5-5.1FRiverside Methodist Hospitalerum or plasma sodium measurement (moles/volume)Ordered By: José Miguel Mcnamara 11-54-7521Mepdqb [Moles/Vol]136 mmol/Z914-185PuxcjzmxsKettering Health Hamiltonerum or plasma total bilirubin measurement (mass/volume)Ordered By: José Miguel Mcnamara on 25-80-0558Rfsitjqvc [Mass/Vol]0.5 mg/dL0.3-1.2FAdena Health System Serum or plasma total carbon dioxide measurement (moles/volume)Ordered By: José Miguel Mcnamara on 16-62-6002ZB9 [Moles/Vol]21.3 mmol/L22.0-30.0[facility] Hamiltonerum or plasma urea nitrogen measurement (mass/volume) Ordered By: José Miguel Mcnamara on 02-74-8681Aneu nitrogen [Mass/Vol]5 mg/dL9- [facility] CenterWBC Auto (Bld) [#/Vol]Ordered By: José Miguel Mcnamara on 35-27-3147AIM (Bld) [#/Vol]3.2 10*3/uL3.8-11.6FAdena Health SystemBasophils Auto (Bld) [#/Vol]Ordered By: Berto Villasenor on 27-49-3699Gmaczknev (Bld) [#/Vol]0.0 10*3/uL0.0-0.2FAdena Health SystemBasophils/100 WBC Auto (Bld)Ordered By: Berto Villasenor on 03-17-2022 Basophils/100 WBC (Bld)0.6 %.[facility] CenterBody fluid albumin measurement (mass/volume)Ordered By: Berto Villasenor on 22-11-1003Fwfvlha (Body fld) [Mass/Vol]3.7 g/dL3.2-5.5FAdena Health SystemCreatinine and Glomerular filtration rate.predicted panel (S/P/Bld)Ordered By: Berto Villasenor on 99-02-2377Vtaxdqulda [Mass/Vol]0.80 mg/dL0.44-1.03[facility] CenterDirect bilirubin measurementOrdered By: Berto Villasenor on 03-17-2022 Bilirubin.direct [Mass/Vol]0.2 mg/dL0.0-0.4FAdena Health System Eosinophils Auto (Bld) [#/Vol]Ordered By: Berto Villasenor on 36-99-9793Laodjxsghki (Bld) [#/Vol]0.0 10*3/uL0.0-0.45[facility] Eosinophils/100 WBC Auto (Bld)Ordered By: Berto Villasenor on 03-17-2022 Eosinophils/100 WBC (Bld)0.5 %.[facility] CenterErythrocyte distribution width Auto (RBC) [Ratio]Ordered By: Berto Villasenor on 03-17-2022 Erythrocyte distribution width (RBC) [Ratio]13.3 %11.9-15.3FAdena Health SystemEstimated glomerular filtration rate (GFR) non- Ordered By: Berto Villasenor on 82-09-8372RMW/1.73 sq M.predicted among non-blacks MDRD (S/P/Bld) [Vol rate/Area]> 60 mL/MinCrystal Clinic Orthopedic Center Globulin Calc (S) [Mass/Vol]Ordered By: Berto Villasenor on 03-81-9657Ibtkkryk (S) [Mass/Vol]3.1 g/dLCrystal Clinic Orthopedic CenterHematocrit Auto (Bld) [Volume fraction]Ordered By: Berto Villasenor on 50-18-7864Qcasnddsfu (Bld) [Volume fraction]40.8 %34.0-46.4FAdena Health SystemHemoglobin [Mass/volume] in BloodOrdered By: Berto Villasenor on 65-04-2690Ziahveatqz (Bld) [Mass/Vol]13.8 g/dL11.8-15.4FAdena Health SystemLeukocytes [#/volume] corrected for nucleated erythrocytes in Blood by Automated coun Ordered By: Berto Villasenor on 45-37-4056YOL corrected for nucl RBC Auto (Bld) [#/Vol]5.2 10*3/uL3.8-11.6FAdena Health SystemLymphocytes Auto (Bld) [#/Vol]Ordered By: Berto Villasenor on 33-22-5582Pfjviwomamk (Bld) [#/Vol]1.8 10*3/uL1.00-4.8[facility] CenterLymphocytes/100 WBC Auto (Bld) Ordered By: Berto Villasenor on 27-03-9080Qlqhuzayoit/100 WBC (Bld)34.2 %.[facility]H Auto (RBC) [Entitic mass]Ordered By: Berto Villasenor on 76-95-5578ZTK (RBC) [Entitic mass]31.8 pg24.7-34.3FMercy Health West HospitalHC Auto (RBC) [Mass/Vol]Ordered By: Berto Villasenor on 45-75-5402YGCM (RBC) [Mass/Vol]33.7 g/dL32.0-35.0[facility] CenterMCV Auto (RBC) [Entitic vol]Ordered By: Berto Villasenor on 90-45-9857PPL (RBC) [Entitic vol]94.2 xL48-335BcxihulnvCrystal Clinic Orthopedic CenterMonocyte distribution width [Entitic volume] in Blood by AutomatedOrdered By: Berto Villasenor on 03-17-2022 Monocyte distribution width Auto (Bld) [Entitic vol]20.70 %0.00-20.00[facility] CenterComment on above:For adults in ED, MDW > 20.0 may be associated with a higher risk of sepsis during the first 12 hrs of hospital admissionMonocytes Auto (Bld) [#/Vol]Ordered By: Berto Villasenor on 03-17-2022 Monocytes (Bld) [#/Vol]0.5 10*3/uL0.0-0.8[facility] Monocytes/100 WBC Auto (Bld)Ordered By: Berto Villasenor on 32-00-0671Idobxfadb/100 WBC (Bld)9.1 %.[facility] CenterNeutrophils Auto (Bld) [#/Vol] Ordered By: Berto Villasenor on 25-58-3001Xrlyhkliyla (Bld) [#/Vol]2.9 10*3/uL 1.8-7.7FAdena Health SystemNeutrophils/100 WBC Auto (Bld)Ordered By: Berto Villasenor on 49-21-8040Bsxrcmcfgcx/100 WBC (Bld)55.6 %.[facility] CenterNo Panel InformationOrdered By: Berto Villasenor on 15-32-9221Gridvafzk GFR ()> 60 mL/MinCrystal Clinic Orthopedic CenterComment on above:GFR estimated reference range: According to KDOQI guidelines, <60 ml/min/1.73m2 is sufficient todiagnose a patient with chronic kidney disease.Pharmacy Creatinine Clearance (Wflr480.22[facility] CenterNucleated erythrocytes [Presence] in Blood by Automated count Ordered By: Berto Villasenor on 69-45-8621Dywmerewx RBC Auto Ql (Bld)0.6 /100{WBC} 0-0.5FAdena Health SystemPlatelet mean volume Auto (Bld) [Entitic vol]Ordered By: Berto Villasenor on 68-44-8524Ahdynamp mean volume (Bld) [Entitic vol]9.0 fL6.3-10.7FAdena Health SystemPlatelets Auto (Bld) [#/Vol] Ordered By: Berto Villasenor on 48-45-9096Mjwovowjg (Bld) [#/Vol]225 10*3/cF994-149 [facility] CenterProtein [Mass/volume] in Serum or PlasmaOrdered By: Berto Villasenor on 85-70-8804Qexqmym [Mass/Vol]6.8 g/dL6.1-7.9[facility] CenterRBC Auto (Bld) [#/Vol]Ordered By: Berto Villasenor on 52-86-2491JGG (Bld) [#/Vol]4.33 10*6/uL3.60-5.00[facility] Hamiltonerum or plasma alanine aminotransferase measurement without P-5'-P (enzymatic activiOrdered By: Berto Villasenor on 62-23-8355YUT No additional P-5'-P [Catalytic activity/Vol]87 U/O72-14CcglmezeeKettering Health Hamiltonerum or plasma albumin/globulin mass ratioOrdered By: Berto Villasenor on 03-17-2022 Albumin/Globulin [Mass ratio]1.2 {ratio}[facility] Hamiltonerum or plasma alkaline phosphatase measurement (enzymatic activity/volume)Ordered By: Berto Villasenor on 46-09-0937POR [Catalytic activity/Vol]71 U/D05-25QgnkgaiflKettering Health Hamiltonerum or plasma anion gap determinationOrdered By: Berto Villasenor on 96-00-6306Htvhw gap [Moles/Vol]12.6 mmol/L6.0-15.0[facility] Hamiltonerum or plasma aspartate aminotransferase measurement (enzymatic activity/volume)Ordered By: Berto Villasenor on 13-16-2730JHL [Catalytic activity/Vol]71 U/W28-18EvfvdtafaKettering Health Hamiltonerum or plasma calcium measurement (mass/volume)Ordered By: Berto Villasenor on 19-69-5353Eyuqxyk [Mass/Vol]8.5 mg/dL8.2-10.2FRiverside Methodist Hospitalerum or plasma chloride measurement (moles/volume)Ordered By: Berto Villasenor on 03-17-2022 Chloride [Moles/Vol]110 mmol/B88-283EavkzwqayKettering Health Hamiltonerum or plasma glucose measurement (mass/volume)Ordered By: Berto Villasenor on 03-17-2022 Glucose [Mass/Vol]98 mg/dA35-765YbabhyleyCrystal Clinic Orthopedic CenterComment on above:ADA recommended reference rangeRandom Glucose Reference Range is dependent on time and content of last meal. Glucose of more than 200 mg/dL in a nonstressed, ambulatory subject supports the diagnosisof Diabetes Mellitus.Serum or plasma non-glucuronidated bilirubin measurement (mass/volume)Ordered By: Berto Villasenor on 93-99-6793Mexwikowq.indirect [Mass/Vol]0.4 mg/dLKettering Health Hamiltonerum or plasma potassium measurement (moles/volume) Ordered By: Berto Villasenor on 62-45-2559Bshjivjku [Moles/Vol]4.1 mmol/L3.5-5.1 [facility] Hamiltonerum or plasma sodium measurement (moles/volume)Ordered By: Berto Villasenor 36-09-4188Flxgyi [Moles/Vol]138 mmol/N131-806GckqtcdfvKettering Health Hamiltonerum or plasma total bilirubin measurement (mass/volume)Ordered By: Berto Villasenor 72-58-5425Srswrdzmf [Mass/Vol]0.6 mg/dL0.3-1.2FRiverside Methodist Hospitalerum or plasma total carbon dioxide measurement (moles/volume)Ordered By: Berto Villasenor on 68-94-0464QY4 [Moles/Vol]19.5 mmol/L22.0-30.0[facility] Serum or plasma urea nitrogen measurement (mass/volume)Ordered By: Berto Villasenor on 36-97-5179Tcid nitrogen [Mass/Vol]9 mg/dL9-23[facility] CenterWBC Auto (Bld) [#/Vol]Ordered By: Berto Villasenor on 93-14-7651TDO (Bld) [#/Vol]5.2 10*3/uL3.8-11.6FAdena Health SystemActivated partial thromboplastin time (aPTT) in platelet poor plasma by coagulation aOrdered By: Cameron Rene on 54-45-9947eWXN Coag (PPP) [Time]22.4 s25.1-36.5FAdena Health SystemAlbumin [Mass/volume] in Serum or PlasmaOrdered By: Cameron Rene on 68-56-7150Azalqci [Mass/Vol]3.7 g/dL3.2-5.5FAdena Health SystemAutomated erythrocytes count in urine sediment (number/area)Ordered By: Cameron Rene on 76-05-6072KGS Auto (Urine sed) [#/Area]0-1 [HPF]0-4FAdena Health SystemAutomated leukocytes count in urine sediment (number/area)Ordered By: Cameron Rene on 70-95-0729GYW Auto (Urine sed) [#/Area]0-1 [HPF]0-4FAdena Health SystemBasophils Auto (Bld) [#/Vol]Ordered By: Cameron Rene on 61-41-3882Rysoxpuib (Bld) [#/Vol]0.0 10*3/uL0.0-0.2FAdena Health SystemBasophils/100 WBC Auto (Bld)Ordered By: Cameron Rene on 08-01-5529Lzguhtcsa/100 WBC (Bld)0.2 %. [facility] CenterBilirubin Test strip Ql (U)Ordered By: Cameron Rene on 11-59-9127Zzmfbxmuk Ql (U)NegativeNegativeCrystal Clinic Orthopedic CenterColor Auto (U)Ordered By: Cameron Rene on 30-00-5501Vrswd (U)Dark yellowYellowCrystal Clinic Orthopedic CenterCreatinine and Glomerular filtration rate.predicted panel (S/P/Bld)Ordered By: Cameron eRne on 23-10-2369Nhqggvayvd [Mass/Vol]0.86 mg/dL0.44-1.03[facility] CenterEosinophils Auto (Bld) [#/Vol]Ordered By: Cameron Rene on 03-14-2022 Eosinophils (Bld) [#/Vol]0.1 10*3/uL0.0-0.45[facility] Eosinophils/100 WBC Auto (Bld)Ordered By: Cameron Rene on 03-14-2022 Eosinophils/100 WBC (Bld)1.2 %.[facility] CenterErythrocyte distribution width Auto (RBC) [Ratio]Ordered By: Cameron Rene on 03-14-2022 Erythrocyte distribution width (RBC) [Ratio]13.3 %11.9-15.3FAdena Health SystemEstimated glomerular filtration rate (GFR) non- Ordered By: Cameron Rene on 61-67-7014PHG/1.73 sq M.predicted among non- blacks MDRD (S/P/Bld) [Vol rate/Area]> 60 mL/MinCrystal Clinic Orthopedic CenterFecal occult blood detection by immunochemistryOrdered By: Cameron Rene on 12-48-5626Guwmbipojy.gastrointestinal Ql (Stl)[facility] CenterGlobulin Calc (S) [Mass/Vol]Ordered By: Cameron Rene on 29-81-2038Cqndabgd (S) [Mass/Vol]3.8 g/dLCrystal Clinic Orthopedic Center Hematocrit Auto (Bld) [Volume fraction]Ordered By: Cameron Rene on 62-41-4111Dnwevdzvok (Bld) [Volume fraction]43.7 %34.0-46.4FAdena Health SystemHemoglobin [Mass/volume] in BloodOrdered By: Cameron Rene on 30-09-5849Qiozkeqxje (Bld) [Mass/Vol]14.6 g/dL11.8-15.4FAdena Health SystemKetones Auto test strip (U) [Mass/Vol]Ordered By: Cameron Rene on 98-31-4681Ukjibey (U) [Mass/Vol]TraceNegativeCrystal Clinic Orthopedic CenterLaboratory - CoagulationOrdered By: Cameron Rene on 24-30-1774JE Coag (PPP) [Time]12.4 s9.0-12.9[facility] CenterLaboratory - UrinalysisOrdered By: Cameron Rene on 76-00-6508Ndqbqjt casts LM Ql (Urine sed)0-8 [LPF]0-8[facility] CenterLeukocytes [#/volume] corrected for nucleated erythrocytes in Blood by Automated counOrdered By: Cameron Rene on 64-58-3285IWU corrected for nucl RBC Auto (Bld) [#/Vol]6.8 10*3/uL 3.8-11.6FAdena Health SystemLymphocytes Auto (Bld) [#/Vol]Ordered By: Cameron Rene on 47-85-7110Icaihofvlro (Bld) [#/Vol]2.2 10*3/uL1.00-4.8 [facility] CenterLymphocytes/100 WBC Auto (Bld)Ordered By: Cameron Rene on 54-86-2247Tikfvavopvu/100 WBC (Bld)32.9 %.[facility] Auto (RBC) [Entitic mass]Ordered By: Cameron Rene on 68-42-7925MUJ (RBC) [Entitic mass]31.2 pg24.7-34.3FMercy Health West HospitalHC Auto (RBC) [Mass/Vol]Ordered By: Cameron Rene on 94-19-3296OVOP (RBC) [Mass/Vol]33.3 g/dL32.0-35.0[facility] CenterMCV Auto (RBC) [Entitic vol]Ordered By: Cameron Rene on 52-40-0741EUV (RBC) [Entitic vol]93.7 jQ63-759AolhdmkmqCrystal Clinic Orthopedic CenterMonocyte distribution width [Entitic volume] in Blood by AutomatedOrdered By: Cameron Rene on 03-14-2022 Monocyte distribution width Auto (Bld) [Entitic vol]18.75 %0.00-20.00[facility] CenterMonocytes Auto (Bld) [#/Vol]Ordered By: Cameron Rene on 53-23-5483Upcdidcnj (Bld) [#/Vol]0.4 10*3/uL0.0-0.8[facility] CenterMonocytes/100 WBC Auto (Bld)Ordered By: Cameron Rene on 03-14-2022 Monocytes/100 WBC (Bld)6.1 %.[facility]opedic CenterNeutrophils Auto (Bld) [#/Vol]Ordered By: Cameron Rene on 39-47-6461Quzpnegslwq (Bld) [#/Vol] 4.0 10*3/uL1.8-7.7FAdena Health SystemNeutrophils/100 WBC Auto (Bld)Ordered By: Cameron Rene on 85-47-5803Xdpnevztovj/100 WBC (Bld)59.6 %. [facility]opedic CenterNitrite Test strip Ql (U)Ordered By: Cameron Rene on 10-65-2156Gwsvbkl Ql (U)NegativeNegativeCrystal Clinic Orthopedic CenterNo Panel InformationOrdered By: Cameron Rene on 35-17-7755Dcpjbagji GFR ()> 60 mL/MinCrystal Clinic Orthopedic CenterComment on above:GFR estimated reference range: According to KDOQI guidelines, <60 ml/min/1.73m2 is sufficient todiagnose a patient with chronic kidney disease. Pharmacy Creatinine Clearance (Chem98.52[facility] Nucleated erythrocytes [Presence] in Blood by Automated countOrdered By: Cameron Rene on 87-05-5151Epedbfmwe RBC Auto Ql (Bld)0.1 /100{WBC}0-0.5FAdena Health SystemPlatelet mean volume Auto (Bld) [Entitic vol]Ordered By: Cameron Rene on 58-58-2689Qcklkwaf mean volume (Bld) [Entitic vol]9.1 fL 6.3-10.7FAdena Health SystemPlatelet poor plasma international normalized ratio (INR) by coagulation assay (relatOrdered By: Cameron Rene on 07-20-1197FMG Coag (PPP) [Relative time]1.1 {INR}[facility] CenterComment on above:INR Therapeutic Range A) Pre- and Peroperative OAT started two weeks before surgery. NOT HIP SURGERY: 1.5 - 2.5 HIP SURGERY: 2 - 3B) Primary and secondary prevention of venous THROMBOSIS: 2 - 3C) Active venous thrombosis, pulmonary embolismand prevention of recurrent venous thrombosis: 2 - 3D) Prevention of arterial thromboembolismincluding patients with mechanical heart valves: 3 - 4.5Platelets Auto (Bld) [#/Vol]Ordered By: Cameron Rene on 87-61-0968Gtkymvceh (Bld) [#/Vol]279 10*3/uN244-386VoqzlgippCrystal Clinic Orthopedic CenterProtein Auto test strip (U) [Mass/Vol]Ordered By: Cameron Rene on 23-63-1837Kontgbm (U) [Mass/Vol]Trace mg/dLNegativeCrystal Clinic Orthopedic CenterProtein [Mass/volume] in Serum or PlasmaOrdered By: Cameron Rene on 61-41-4057Jzwcene [Mass/Vol]7.5 g/dL6.1-7.9[facility] CenterRBC Auto (Bld) [#/Vol]Ordered By: Cameron Rene on 10-90-0399IUL (Bld) [#/Vol] 4.66 10*6/uL3.60-5.00[facility] Hamiltonerum or plasma alanine aminotransferase measurement without P-5'-P (enzymatic activiOrdered By: Cameron Rene on 50-26-1421YHO No additional P-5'-P [Catalytic activity/Vol]86 U/L 10-60[facility] Hamiltonerum or plasma albumin/globulin mass ratioOrdered By: Cameron Rene on 92-68-4235Aqvqhvz/Globulin [Mass ratio]1.0 {ratio}[facility] Hamiltonerum or plasma alkaline phosphatase measurement (enzymatic activity/volume)Ordered By: Cameron Rene on 53-13-3281OKX [Catalytic activity/Vol]69 U/D05-27KjwqbatvrKettering Health Hamiltonerum or plasma anion gap determinationOrdered By: Cameron Rene on 92-48-2437Bunum gap [Moles/Vol]11.6 mmol/L6.0-15.0[facility] Hamiltonerum or plasma aspartate aminotransferase measurement (enzymatic activity/volume)Ordered By: Cameron Rene on 57-96-1980OIE [Catalytic activity/Vol]70 U/U16-82EftlcafpqKettering Health Hamiltonerum or plasma calcium measurement (mass/volume)Ordered By: Cameron Rene on 31-50-2440Dmkalyo [Mass/Vol]8.3 mg/dL8.2-10.2FRiverside Methodist Hospitalerum or plasma chloride measurement (moles/volume)Ordered By: Cameron Rene on 03-14-2022 Chloride [Moles/Vol]108 mmol/K30-662DdkmqgfbcKettering Health Hamiltonerum or plasma glucose measurement (mass/volume)Ordered By: Cameron Rene on 68-66-6504Urucxqc [Mass/Vol]105 mg/vE47-198DvenkjzhmCrystal Clinic Orthopedic Center Comment on above:ADA recommended reference rangeRandom Glucose Reference Range is dependent on time and content of last meal. Glucose of more than 200 mg/dL in a nonstressed, ambulatory subject supports the diagnosisof Diabetes Mellitus. Serum or plasma potassium measurement (moles/volume)Ordered By: Cameron Rene on 31-31-5457Dsylwddpu [Moles/Vol]3.9 mmol/L3.5-5.1FRiverside Methodist Hospitalerum or plasma sodium measurement (moles/volume)Ordered By: Cameron Rene on 76-87-7799Fmaxbn [Moles/Vol]135 mmol/A369-837CggtonekeKettering Health Hamiltonerum or plasma total bilirubin measurement (mass/volume)Ordered By: Cameron Rene on 92-85-2796Orzbmaihj [Mass/Vol]0.7 mg/dL0.3-1.2FRiverside Methodist Hospitalerum or plasma total carbon dioxide measurement (moles/volume)Ordered By: Cameron Rene on 26-55-2936LO1 [Moles/Vol]19.3 mmol/L22.0-30.0[facility] Hamiltonerum or plasma urea nitrogen measurement (mass/volume)Ordered By: Cameron Rene on 13-21-5240Ozpz nitrogen [Mass/Vol]11 mg/dL9-23[facility] Hamiltonpecific gravity Auto test strip (U) [Rel density]Ordered By: Cameron Rene on 40-08-4403Dwytglir gravity (U) [Rel density]1.0301.001-1.030[facility] Squamous epithelial cells detection in urine sediment by light microscopyOrdered By: Cameron Rene on 12-45-5530Sqwauycdkv cells.squamous LM Ql (Urine sed)3-4 [HPF]0-2FAdena Health SystemUrine bacteria detection by automated methodOrdered By: Cameron Rene on 30-87-9381Uxxgduys Auto Ql (U)None seen None SeenCrystal Clinic Orthopedic CenterUrine clarity by refractometry automatedOrdered By: Cameron Rene on 33-70-5164Lawtayo Refractometry automated (U)ClearCleMercy Health Clermont HospitalUrine glucose measurement by automated test strip (mass/volume)Ordered By: Cameron Rene on 26-97-2045Yqykaxu Auto test strip (U) [Mass/Vol]Normal mg/dLNoUniversity Hospitals Samaritan Medical CenterUrine hemoglobin detection by automated test stripOrdered By: Cameron Rene on 41-33-0688Drzasrmtbr Auto test strip Ql (U)Negative NegativeCrystal Clinic Orthopedic CenterUrine lactic acid measurementOrdered By: Cameron Rene on 13-20-5209Cbdkrpz (U) [Moles/Vol]1.0 mmol/L0.5-2.2 [facility] CenterUrine leukocyte esterase detection by automated test stripOrdered By: Cameron Rene on 69-58-4913Hnhkbuotf esterase Auto test strip Ql (U)NegativeNegativeCrystal Clinic Orthopedic CenterUrobilinogen Auto test strip (U) [Mass/Vol]Ordered By: Cameron Rene on 03-14-2022 Urobilinogen (U) [Mass/Vol]Normal mg/dLNoUniversity Hospitals Samaritan Medical Center WBC Auto (Bld) [#/Vol]Ordered By: Cameron Rene on 95-62-1095QYE (Bld) [#/Vol]6.8 10*3/uL3.8-11.6FAdena Health SystempH Auto test strip (U)Ordered By: Cameron Rene on 81-01-0165uW (U)6.5 [pH]5.0-9.0[facility] CenterUrine culture routineOrdered By: Dalton Ceja on 21-75-1803Rjbahogi identified Cx Nom (U)Escherichia coliCrystal Clinic Orthopedic CenterAutomated erythrocytes count in urine sediment (number/area) Ordered By: Dalton Ceja on 28-45-0986PDX Auto (Urine sed) [#/Area]0-1 [HPF]0-4 [facility] CenterAutomated leukocytes count in urine sediment (number/area)Ordered By: Dalton Ceja on 14-08-9598TPG Auto (Urine sed) [#/Area]Innumerable [HPF]0-4FAdena Health SystemAutomated urine hyaline casts count (number/volume)Ordered By: Dalton Ceja on 02-03-2022 Hyaline casts Auto (U) [#/Vol]None seen [LPF]0-1FAdena Health SystemBasophils Auto (Bld) [#/Vol]Ordered By: Dalton Ceja on 02-03-2022 Basophils (Bld) [#/Vol]0.0 10*3/uL0.0-0.2FAdena Health System Basophils/100 WBC Auto (Bld)Ordered By: Dalton Ceja on 82-73-5832Nfmebxhjt/100 WBC (Bld)0.5 %.[facility]opedic CenterBilirubin Test strip Ql (U) Ordered By: Dalton Ceja on 90-01-1254Aqtcdlydo Ql (U)NegativeNegativeCrystal Clinic Orthopedic CenterBody fluid albumin measurement (mass/volume)Ordered By: Dalton Ceja on 26-38-5794Odtsmoy (Body fld) [Mass/Vol]3.7 g/dL3.2-5.5FAdena Health SystemCasts typing in urine sediment by light microscopy Ordered By: Dalton Ceja on 49-34-5240Fcerh LM Nom (Urine sed)None seen [LPF] None SeenCrystal Clinic Orthopedic CenterColor Auto (U)Ordered By: Dalton Ceja on 37-10-5305Xgzjw (U)YellowYellowCrystal Clinic Orthopedic Center Creatinine and Glomerular filtration rate.predicted panel (S/P/Bld)Ordered By: Dalton Ceja on 11-26-5978Ymaiwnuyrk [Mass/Vol]0.78 mg/dL0.44-1.03[facility] CenterDirect bilirubin measurementOrdered By: Dalton Ceja on 32-84-0972Dvvlefmpj.direct [Mass/Vol]0.1 mg/dL0.0-0.4FAdena Health SystemEosinophils Auto (Bld) [#/Vol]Ordered By: Dalton Ceja on 02-03-2022 Eosinophils (Bld) [#/Vol]0.1 10*3/uL0.0-0.45[facility] Eosinophils/100 WBC Auto (Bld)Ordered By: Dalton Ceja on 02-03-2022 Eosinophils/100 WBC (Bld)1.7 %.[facility] CenterErythrocyte distribution width Auto (RBC) [Ratio]Ordered By: Dalton Ceja on 02-03-2022 Erythrocyte distribution width (RBC) [Ratio]13.4 %11.9-15.3FAdena Health SystemEstimated glomerular filtration rate (GFR) non- Ordered By: Dalton Ceja on 71-45-8852ULD/1.73 sq M.predicted among non-blacks MDRD (S/P/Bld) [Vol rate/Area]> 60 mL/MinCrystal Clinic Orthopedic Center Globulin Calc (S) [Mass/Vol]Ordered By: Dalton Ceja on 36-47-5075Slofflfc (S) [Mass/Vol]3.4 g/dLCrystal Clinic Orthopedic CenterHCG ( test) IA.rapid Ql (U)Ordered By: Dalton Ceja on 42-78-0172EOS ( test) Ql (U) NegativeCrystal Clinic Orthopedic CenterHematocrit Auto (Bld) [Volume fraction] Ordered By: Dalton Ceja on 50-56-9939Plxpidfueq (Bld) [Volume fraction]43.8 % 34.0-46.4FAdena Health SystemHemoglobin [Mass/volume] in Blood Ordered By: Dalton Ceja on 98-23-1252Iyirevxvnh (Bld) [Mass/Vol]14.5 g/dL 11.8-15.4FAdena Health SystemKetones Auto test strip (U) [Mass/Vol] Ordered By: Dalton Ceja on 19-12-7446Ejulasc (U) [Mass/Vol]NegativeNegative [facility] CenterLaboratory - Chemistry and Chemistry - challengeOrdered By: Dalton Ceja on 53-61-6924Gfypmc [Catalytic activity/Vol] 30.0 U/R13-76NfbkpasvkCrystal Clinic Orthopedic CenterLaboratory - CoagulationOrdered By: Dalton Ceja on 84-67-1278OM Coag (PPP) [Time]11.9 s9.0-12.9[facility] CenterLaboratory - Hematology and Cell countsOrdered By: Dalton Ceja on 35-46-3341Xxcgusnto RBC/100 WBC (Bld) [Ratio]0.1 %0-0.5FAdena Health SystemLeukocytes [#/volume] in Blood by Automated countOrdered By: Dalton Ceja on 91-30-4542DPX (Bld) [#/Vol]8.6 10*3/uL4.5-11.0[facility] CenterLymphocytes Auto (Bld) [#/Vol]Ordered By: Dalton Ceja on 77-98-2716Artveixxoxl (Bld) [#/Vol]2.6 10*3/uL1.00-4.8[facility] CenterLymphocytes/100 WBC Auto (Bld)Ordered By: Dalton Ceja on 72-20-3211Wzibiugsydc/100 WBC (Bld)30.4 %.[facility] Auto (RBC) [Entitic mass]Ordered By: Dalton Ceja on 35-52-7125EFT (RBC) [Entitic mass]31.4 pg24.7-34.3FMercy Health West HospitalHC Auto (RBC) [Mass/Vol]Ordered By: Dalton Ceja on 38-93-4354LBGF (RBC) [Mass/Vol]33.1 g/dL 32.0-35.0[facility] CenterMCV Auto (RBC) [Entitic vol]Ordered By: Dalton Ceja on 13-15-3575HZD (RBC) [Entitic vol]94.9 kP32-402QvxxllphhCrystal Clinic Orthopedic CenterMonocytes Auto (Bld) [#/Vol]Ordered By: Dalton Ceja on 15-75-8833Vbizuoxgp (Bld) [#/Vol]0.6 10*3/uL0.0-0.8[facility] CenterMonocytes/100 WBC Auto (Bld)Ordered By: Dalton Ceja on 02-03-2022 Monocytes/100 WBC (Bld)7.4 %.[facility] CenterNeutrophils Auto (Bld) [#/Vol]Ordered By: Dalton Ceja on 59-57-0547Wtkeijbltav (Bld) [#/Vol]5.1 10*3/uL1.8-7.7FAdena Health SystemNeutrophils/100 WBC Auto (Bld) Ordered By: Dalton Ceja on 06-31-5183Opzljwtyivp/100 WBC (Bld)60.0 %.[facility] CenterNitrite Test strip Ql (U)Ordered By: Dalton Ceja on 60-58-6498Weoeebh Ql (U)PositiveNegativeCrystal Clinic Orthopedic CenterNo Panel InformationOrdered By: Dalton Ceja on 32-36-3235Ayxnhqpld GFR ()> 60 mL/MinCrystal Clinic Orthopedic CenterComment on above:GFR estimated reference range: According to KDOQI guidelines, <60 ml/min/1.73m2 is sufficient todiagnose a patient with chronic kidney disease.Pharmacy Creatinine Clearance (Qprg766.62[facility] CenterPlatelet mean volume Auto (Bld) [Entitic vol]Ordered By: Dalton Ceja on 97-67-7597Vfqsfjjg mean volume (Bld) [Entitic vol]9.6 fL6.3-10.7FAdena Health SystemPlatelet poor plasma international normalized ratio (INR) by coagulation assay (relatOrdered By: Dalton Ceja on 00-24-5723OZC Coag (PPP) [Relative time]1.1 {INR}[facility] CenterComment on above:INR Therapeutic Range A) Pre- and Peroperative OAT started two weeks before surgery. NOT HIP SURGERY: 1.5 - 2.5 HIP SURGERY: 2 - 3B) Primary and secondary prevention of venous THROMBOSIS: 2 - 3C) Active venous thrombosis, pulmonary embolismand prevention of recurrent venous thrombosis: 2 - 3D) Prevention of arterial thromboembolismincluding patients with mechanical heart valves: 3 - 4.5Platelets Auto (Bld) [#/Vol] Ordered By: Dalton Ceja on 24-97-4294Nsffjqmgh (Bld) [#/Vol]269 10*3/nI011-998 [facility] CenterProtein Auto test strip (U) [Mass/Vol]Ordered By: Dalton Ceja on 84-71-7297Kbmvwbg (U) [Mass/Vol]100 mg/dLNegativeCrystal Clinic Orthopedic CenterProtein [Mass/volume] in Serum or PlasmaOrdered By: Dalton Ceja on 32-17-8442Tgifwdk [Mass/Vol]7.1 g/dL6.1-7.9[facility] CenterRBC Auto (Bld) [#/Vol]Ordered By: Dalton Ceja on 07-34-2854VFT (Bld) [#/Vol]4.62 10*6/uL3.60-5.00[facility] Hamiltonerum or plasma alanine aminotransferase measurement without P-5'-P (enzymatic activi Ordered By: Dalton Ceja on 13-08-5468EGK No additional P-5'-P [Catalytic activity/Vol]74 U/V20-38ZpkqbylioKettering Health Hamiltonerum or plasma albumin/globulin mass ratioOrdered By: Dalton Ceja on 02-03-2022 Albumin/Globulin [Mass ratio]1.1 {ratio}[facility] Hamiltonerum or plasma alkaline phosphatase measurement (enzymatic activity/volume)Ordered By: Dalton Ceja on 04-49-7969BLV [Catalytic activity/Vol]78 U/S85-70VoodvutacKettering Health Hamiltonerum or plasma anion gap determinationOrdered By: Dalton Ceja on 54-16-5587Bpzyp gap [Moles/Vol]14.0 mmol/L6.0-15.0[facility] Hamiltonerum or plasma aspartate aminotransferase measurement (enzymatic activity/volume)Ordered By: Dalton Ceja on 42-50-8704DJO [Catalytic activity/Vol]54 U/J82-42JifbatzvnKettering Health Hamiltonerum or plasma calcium measurement (mass/volume)Ordered By: Dalton Ceja on 39-66-0130Yepzfeq [Mass/Vol]8.9 mg/dL8.2-10.2FRiverside Methodist Hospitalerum or plasma chloride measurement (moles/volume)Ordered By: Dalton Ceja on 02-03-2022 Chloride [Moles/Vol]109 mmol/X24-333AzgxokjwdKettering Health Hamiltonerum or plasma glucose measurement (mass/volume)Ordered By: Dalton Ceja on 02-03-2022 Glucose [Mass/Vol]107 mg/mC73-901NkohywewrCrystal Clinic Orthopedic CenterComment on above:ADA recommended reference rangeRandom Glucose Reference Range is dependent on time and content of last meal. Glucose of more than 200 mg/dL in a nonstressed, ambulatory subject supports the diagnosisof Diabetes Mellitus.Serum or plasma non-glucuronidated bilirubin measurement (mass/volume)Ordered By: Dalton Ceja on 38-14-2244Rtkudczar.indirect [Mass/Vol]0.3 mg/dLKettering Health Hamiltonerum or plasma potassium measurement (moles/volume) Ordered By: Dalton Ceja on 23-59-4640Phkdlsqoh [Moles/Vol]3.6 mmol/L3.5-5.1 [facility] Hamiltonerum or plasma sodium measurement (moles/volume)Ordered By: Dalton Ceja 74-10-5902Zbgclp [Moles/Vol]137 mmol/U769-310KimeqxzniKettering Health Hamiltonerum or plasma total bilirubin measurement (mass/volume)Ordered By: Dalton Ceja 83-54-3370Viiungbgi [Mass/Vol]0.4 mg/dL0.3-1.2FRiverside Methodist Hospitalerum or plasma total carbon dioxide measurement (moles/volume)Ordered By: Dalton Ceja 58-06-3543AR2 [Moles/Vol]17.6 mmol/L22.0-30.0[facility] Serum or plasma urea nitrogen measurement (mass/volume)Ordered By: Dalton Ceja 05-23-0624Keia nitrogen [Mass/Vol]15 mg/dL9-23[facility] Hamiltonpecific gravity Auto test strip (U) [Rel density]Ordered By: Daltno Ceja on 61-08-6702Iblohdrx gravity (U) [Rel density]1.0201.001-1.030 [facility] Hamiltonquamous epithelial cells detection in urine sediment by light microscopyOrdered By: Dalton Ceja on 21-67-9509Xvrujnwzqy cells.squamous LM Ql (Urine sed)3-4 [HPF]0-2FAdena Health System Urine bacteria detection by automated methodOrdered By: Dalton Ceja on 77-47-6843Weiatoky Auto Ql (U)4+None SeenCrystal Clinic Orthopedic CenterUrine clarity by refractometry automatedOrdered By: Dalton Ceja on 56-02-2169Wazwbvi Refractometry automated (U)CloudyClearFAdena Health SystemUrine culture routineOrdered By: Dalton Ceja on 82-29-6890Kiczjmbk identified Cx Nom (U)Escherichia coliCrystal Clinic Orthopedic CenterUrine glucose measurement by automated test strip (mass/volume)Ordered By: Dalton Ceja on 02-03-2022 Glucose Auto test strip (U) [Mass/Vol]Normal mg/dLNoUniversity Hospitals Samaritan Medical CenterUrine hemoglobin detection by automated test stripOrdered By: Dalton Ceja on 28-75-5754Owzyvpqdnj Auto test strip Ql (U)3+NegativeCrystal Clinic Orthopedic CenterUrine leukocyte esterase detection by automated test stripOrdered By: Dalton Ceja on 84-47-1606Zstqpagho esterase Auto test strip Ql (U)4+NegativeCrystal Clinic Orthopedic CenterUrobilinogen Auto test strip (U) [Mass/Vol]Ordered By: Dalton Ceja on 96-82-7481Hlxiuhfhhugz (U) [Mass/Vol] Normal mg/dLNoUniversity Hospitals Samaritan Medical CenterpH Auto test strip (U)Ordered By: Dalton Ceja on 67-59-8150nS (U)7.0 [pH]5.0-9.0[facility] CenterActivated partial thromboplastin time (aPTT) in platelet poor plasma by coagulation aOrdered By: Berto Villasenor on 55-96-8816pCPW Coag (PPP) [Time]31.1 s 25.1-36.5FAdena Health SystemAlbumin [Mass/volume] in Serum or PlasmaOrdered By: Berto Villasenor on 84-70-1347Wjcpqnm [Mass/Vol]3.5 g/dL3.2-5.5 [facility] CenterBasophils Auto (Bld) [#/Vol]Ordered By: Berto Villasenor on 14-64-3919Tocdljckt (Bld) [#/Vol]0.0 10*3/uL0.0-0.2FAdena Health SystemBasophils/100 WBC Auto (Bld)Ordered By: Berto Villasenor on 28-05-0299Raiswaebb/100 WBC (Bld)0.5 %.[facility] CenterBlood hemoglobin measurement (mass/volume)Ordered By: Berto Villasenor on 11-13-2021 Hemoglobin (Bld) [Mass/Vol]14.8 g/dL11.8-15.4FAdena Health System Blood leukocytes automated count (number/volume)Ordered By: Berto Villasenor on 94-56-0406JSC (Bld) [#/Vol]7.8 10*3/uL4.5-11.0[facility] Creatinine and Glomerular filtration rate.predicted panel (S/P/Bld)Ordered By: Berto Villasenor on 41-74-7027Teerobptzw [Mass/Vol]0.92 mg/dL0.44-1.03[facility] CenterDirect bilirubin measurementOrdered By: Berto Villasenor on 26-93-0083Svgaytmqb.direct [Mass/Vol]mg/dL0.0-0.4FAdena Health SystemEosinophils Auto (Bld) [#/Vol]Ordered By: Berto Villasenor on 11-13-2021 Eosinophils (Bld) [#/Vol]0.2 10*3/uL0.0-0.45[facility] Eosinophils/100 WBC Auto (Bld)Ordered By: Berto Villasenor on 11-13-2021 Eosinophils/100 WBC (Bld)2.5 %.[facility] CenterErythrocyte distribution width Auto (RBC) [Ratio]Ordered By: Berto Villasenor on 11-13-2021 Erythrocyte distribution width (RBC) [Ratio]13.6 %11.9-15.3FAdena Health SystemEstimated glomerular filtration rate (GFR) non- Ordered By: Berto Villasenor on 37-83-2452XOE/1.73 sq M.predicted among non-blacks MDRD (S/P/Bld) [Vol rate/Area]> 60 mL/MinCrystal Clinic Orthopedic Center Globulin Calc (S) [Mass/Vol]Ordered By: Berto Villasenor on 85-70-9680Rhhdbwma (S) [Mass/Vol]3.6 g/dLCrystal Clinic Orthopedic CenterHematocrit Auto (Bld) [Volume fraction]Ordered By: Berto Villasenor on 87-13-2225Sploxhtlmg (Bld) [Volume fraction]45.1 %34.0-46.4FAdena Health SystemLaboratory - Chemistry and Chemistry - challengeOrdered By: Berto Villasenor on 49-54-2403Qbpnkq [Catalytic activity/Vol]33.0 U/L89-56NdbuadbhzCrystal Clinic Orthopedic CenterLaboratory - CoagulationOrdered By: Berto Villasenor on 32-87-2552YN Coag (PPP) [Time]11.7 s 9.0-12.9[facility] CenterLabroselletory - Hematology and Cell counts Ordered By: Berto Villasenor on 88-74-7516Oporxlnps RBC/100 WBC (Bld) [Ratio]0.1 % 0-0.5FAdena Health SystemLactate dehydrogenase measurement (enzymatic activity/volume)Ordered By: Berto Villasenor on 98-38-8593SOJ (Unsp spec) [Catalytic activity/Vol]154 U/M69-602KycxfjxbsCrystal Clinic Orthopedic Center Lymphocytes Auto (Bld) [#/Vol]Ordered By: Berto Villasenor on 60-73-0648Wjfkfxcpiad (Bld) [#/Vol]2.5 10*3/uL1.00-4.8[facility] Lymphocytes/100 WBC Auto (Bld)Ordered By: Berto Villasenor on 11-13-2021 Lymphocytes/100 WBC (Bld)31.5 %.[facility] Auto (RBC) [Entitic mass]Ordered By: Berto Villasenor on 78-17-6042UDM (RBC) [Entitic mass] 30.8 pg24.7-34.3FMercy Health West HospitalHC Auto (RBC) [Mass/Vol] Ordered By: Berto Villasenor on 98-18-1195FLGQ (RBC) [Mass/Vol]32.8 g/dL32.0-35.0 [facility]V Auto (RBC) [Entitic vol]Ordered By: Berto Villasenor on 50-76-9108VUY (RBC) [Entitic vol]94.1 wY22-514YjxiekdwrCrystal Clinic Orthopedic CenterMonocyte %Ordered By: Berto Villasenor on 51-00-1471Jmwyppjp %27 umol/Y22-96KbymijkjhCrystal Clinic Orthopedic CenterMonocytes Auto (Bld) [#/Vol]Ordered By: Berto Villaesnor on 27-03-8015Haxlaurom (Bld) [#/Vol]0.5 10*3/uL0.0-0.8 [facility] CenterMonocytes/100 WBC Auto (Bld)Ordered By: Berto Villasenor on 61-32-7927Djfsuadfz/100 WBC (Bld)6.5 %.[facility] CenterNeutrophils Auto (Bld) [#/Vol]Ordered By: Berto Villasenor on 11-13-2021 Neutrophils (Bld) [#/Vol]4.6 10*3/uL1.8-7.7FAdena Health System Neutrophils/100 WBC Auto (Bld)Ordered By: Berto Villasenor on 11-13-2021 Neutrophils/100 WBC (Bld)59.0 %.[facility] CenterNo Panel InformationOrdered By: Berto Villasenor on 65-97-4605Duzmpotax GFR ()> 60 mL/MinCrystal Clinic Orthopedic CenterComment on above:GFR estimated reference range: According to KDOQI guidelines, <60 ml/min/1.73m2 is sufficient todiagnose a patient with chronic kidney disease.Pharmacy Creatinine Clearance (Chem92.37[facility] CenterPlatelet mean volume Auto (Bld) [Entitic vol]Ordered By: Berto Villasenor on 90-61-8943Ouryzepo mean volume (Bld) [Entitic vol]9.2 fL6.3-10.7FAdena Health SystemPlatelet poor plasma international normalized ratio (INR) by coagulation assay (relatOrdered By: Berto Villasenor on 09-70-6798FPI Coag (PPP) [Relative time]1.0 {INR}[facility] CenterComment on above:INR Therapeutic Range A) Pre- and Peroperative OAT started two weeks before surgery. NOT HIP SURGERY: 1.5 - 2.5 HIP SURGERY: 2 - 3 B) Primary and secondary prevention of venous THROMBOSIS: 2 - 3 C) Active venous thrombosis, pulmonary embolism and prevention of recurrent venous thrombosis: 2 - 3 D) Prevention of arterial thromboembolism including patients with mechanical heart valves: 3 - 4.5INR Therapeutic Range A) Pre- and Peroperative OAT started two weeks before surgery. NOT HIP SURGERY: 1.5 - 2.5 HIP SURGERY: 2 - 3B) Primary and secondary prevention of venous THROMBOSIS: 2 - 3C) Active venous thrombosis, pulmonary embolismand prevention of recurrent venous thrombosis: 2 - 3D) Prevention of arterial thromboembolismincluding patients with mechanical heart valves: 3 - 4.5Platelets Auto (Bld) [#/Vol]Ordered By: Berto Villasenor on 95-51-9031Kyxceqtau (Bld) [#/Vol] 281 10*3/tZ032-299CkkpcgeluCrystal Clinic Orthopedic CenterProtein [Mass/volume] in Serum or PlasmaOrdered By: Berto Villasenor on 63-77-2358Ttwieou [Mass/Vol]7.1 g/dL 6.1-7.9[facility] CenterRBC Auto (Bld) [#/Vol]Ordered By: Berto Villasenor on 76-67-5013EGP (Bld) [#/Vol]4.79 10*6/uL3.60-5.00[facility] Hamiltonerum or plasma alanine aminotransferase measurement without P-5'-P (enzymatic activiOrdered By: Berto Villasenor on 97-06-1764FEJ No additional P-5'-P [Catalytic activity/Vol]96 U/I69-31ZfwabtscaCrystal Clinic Orthopedic Center Serum or plasma albumin/globulin mass ratioOrdered By: Berto Villasenor on 03-06-5386Wmoqbnt/Globulin [Mass ratio]1.0 {ratio}[facility] Hamiltonerum or plasma alkaline phosphatase measurement (enzymatic activity/volume)Ordered By: Berto Villasenor on 63-98-5002JVS [Catalytic activity/Vol]87 U/Z18-91LfvpsvazhKettering Health Hamiltonerum or plasma aspartate aminotransferase measurement (enzymatic activity/volume)Ordered By: Berto Villasenor on 20-88-9015SGP [Catalytic activity/Vol]64 U/R12-35GjxaiocmpKettering Health Hamiltonerum or plasma calcium measurement (mass/volume)Ordered By: Berto Villasenor on 59-62-5248Eycprql [Mass/Vol]9.0 mg/dL8.2-10.2FRiverside Methodist Hospitalerum or plasma chloride measurement (moles/volume) Ordered By: Berto Villasenor on 32-08-8063Ygkkrynh [Moles/Vol]101 mmol/L95-114 [facility] Hamiltonerum or plasma glucose measurement (mass/volume)Ordered By: Berto Villasenor on 08-51-2139Yjbeyjl [Mass/Vol]96 mg/dL 70-100[facility] CenterComment on above:ADA recommended reference range Random Glucose Reference Range is dependent on time and content of last meal. Glucose of more than 200 mg/dL in a nonstressed, ambulatory subject supports the diagnosis of Diabetes Mellitus.ADA recommended reference rangeRandom Glucose Reference Range is dependent on time and content of last meal. Glucose of more than 200 mg/dL in a nonstressed, ambulatory subject supports the diagnosisof Diabetes Mellitus.Serum or plasma non-glucuronidated bilirubin measurement (mass/volume)Ordered By: Berto Villasenor on 54-69-0378Fkdxlfiyz.indirect [Mass/Vol]TNPCrystal Clinic Orthopedic CenterComment on above:Test not performedSerum or plasma potassium measurement (moles/volume)Ordered By: Berto Villasenor on 95-94-0196Ptctvxdbi [Moles/Vol]4.0 mmol/L3.5-5.1FRiverside Methodist Hospitalerum or plasma sodium measurement (moles/volume)Ordered By: Berto Villasenor on 49-17-1887Sbjbws [Moles/Vol]135 mmol/K468-402DbajphwfeKettering Health Hamiltonerum or plasma total bilirubin measurement (mass/volume)Ordered By: Berto Villasenor on 48-38-4078Hmqvqtues [Mass/Vol]0.4 mg/dL0.3-1.2FRiverside Methodist Hospitalerum or plasma total carbon dioxide measurement (moles/volume)Ordered By: Berto Villasenor on 26-22-3053NK6 [Moles/Vol]24.3 mmol/L 22.0-30.0[facility] Hamiltonerum or plasma urea nitrogen measurement (mass/volume)Ordered By: Berto Villasenor on 54-80-6032Koxa nitrogen [Mass/Vol]14 mg/dL9-23[facility] Orthopedic CenterBasophils Auto (Bld) [#/Vol]Ordered By: Felice Veliz on 14-92-8624Ddvmvvixk (Bld) [#/Vol]0.1 10*3/uL 0.0-0.2FAdena Health SystemBasophils/100 WBC Auto (Bld)Ordered By: Felice Veliz on 61-61-6546Zonftpkis/100 WBC (Bld)0.8 %.[facility] CenterBlood hemoglobin measurement (mass/volume)Ordered By: Felice Veliz on 70-37-0007Mbtyuxcisx (Bld) [Mass/Vol]14.9 g/dL11.8-15.4FAdena Health SystemBlaustin hospital and clinic leukocytes automated count (number/volume)Ordered By: Felice Veliz on 22-72-4450SID (Bld) [#/Vol]8.2 10*3/uL4.5-11.0[facility] CenterBody fluid albumin measurement (mass/volume)Ordered By: Felice Veliz on 20-88-4303Eugabua (Body fld) [Mass/Vol]3.5 g/dL3.2-5.5FAdena Health SystemCreatinine and Glomerular filtration rate.predicted panel (S/P/Bld)Ordered By: Felice Veliz on 79-15-0545Ahodkaaahn [Mass/Vol]0.74 mg/dL 0.44-1.03[facility] CenterDiagnostic impression [Interpretation] in Specimen NarrativeOrdered By: Felice Veliz on 72-43-8498Ernnoztimn impression Molgen Sky (Unsp spec) [Interp]See comment.[facility] CenterComment on above:Positive HCV antibody screen with the presence of HCV RNA is consistent with active infection. Performed at: [address] [id number] Clay Maker: Gavin Mott PhD, Phone: [phone] Performed at: [address] [id number] Clay Maker: Brianda Durant MD, Phone: [phone] HCV antibody screen with the presence of HCV RNAis consistent with active infection.Performed at: [facility] [place], [place] [id number] Director: Gavin Mott PhD, Phone: [phone] at: [address] [id number]: Brianda Durant MD, Phone: [phone] Auto (Bld) [#/Vol]Ordered By: Felice Veliz on 10-30-2021 Eosinophils (Bld) [#/Vol]0.1 10*3/uL0.0-0.45[facility] Eosinophils/100 WBC Auto (Bld)Ordered By: Felice Veliz on 10-30-2021 Eosinophils/100 WBC (Bld)1.4 %.[facility] CenterErythrocyte distribution width Auto (RBC) [Ratio]Ordered By: Felice Veliz on 10-30-2021 Erythrocyte distribution width (RBC) [Ratio]13.4 %11.9-15.3FAdena Health SystemEstimated glomerular filtration rate (GFR) non- Ordered By: Felice Veliz on 77-80-3504PFX/1.73 sq M.predicted among non-blacks MDRD (S/P/Bld) [Vol rate/Area]> 60 mL/MinCrystal Clinic Orthopedic Center Globulin Calc (S) [Mass/Vol]Ordered By: Felice Veliz on 18-22-9480Egwkfacq (S) [Mass/Vol]3.5 g/dLCrystal Clinic Orthopedic CenterHematocrit Auto (Bld) [Volume fraction]Ordered By: Felice Veliz on 19-58-2526Kqmaqjdxwf (Bld) [Volume fraction]45.0 %34.0-46.4FAdena Health SystemHepatitis B virus surface Ag [Presence] in Serum or Plasma by ImmunoassayOrdered By: Felice Veliz on 24-83-1835LQK surface Ag IA QlNegativeNegativeTrinity Health System C virus RNA [Units/volume] (viral load) in Serum or Plasma by LINDSEY with probOrdered By: Felice Veliz on 33-49-0164MHB RNA LINDSEY+probe [id number] [IU]/mL.[facility]opedic CenterHeharlan arh hospitaltis C virus RNA [log units/volume] (viral load) in Serum or Plasma by LINDSEY withOrdered By: Felice Veliz on 17-99-6236BTL RNA LINDSEY+probe [Log units/Vol]7.124.[facility] CenterComment on above:Result Units: log10 IU/mLLaboratory - Chemistry and Chemistry - challengeOrdered By: Felice Veliz on 72-54-0686Rbhefjj [Catalytic activity/Vol]77 U/L7-64[facility] CenterLaboratory - Hematology and Cell countsOrdered By: Felice Veliz on 25-23-5818Itvcppytc RBC/100 WBC (Bld) [Ratio]0.0 %0-0.5FAdena Health SystemLymphocytes Auto (Bld) [#/Vol]Ordered By: Felice Veliz on 19-59-2161Yafxirlnmne (Bld) [#/Vol]1.9 10*3/uL1.00-4.8[facility]opedic CenterLymphocytes/100 WBC Auto (Bld)Ordered By: Felice Veliz on 00-08-6527Myrsxlmgltr/100 WBC (Bld)23.9 %. [facility] HospitalH Auto (RBC) [Entitic mass]Ordered By: Felice Veliz on 41-00-5755QIT (RBC) [Entitic mass]31.0 pg24.7-34.3FAdena Health SystemMCHC Auto (RBC) [Mass/Vol]Ordered By: Felice Veliz on 10-30-2021 MCHC (RBC) [Mass/Vol]33.1 g/dL32.0-35.0[facility] CenterMCV Auto (RBC) [Entitic vol]Ordered By: Felice Veliz on 58-32-2670BCG (RBC) [Entitic vol]93.5 pW84-045IxmmtglopCrystal Clinic Orthopedic CenterMonocytes Auto (Bld) [#/Vol] Ordered By: Felice Veliz on 67-97-4603Wjehdfhtv (Bld) [#/Vol]0.7 10*3/uL0.0-0.8 [facility] CenterMonocytes/100 WBC Auto (Bld)Ordered By: Felice Veliz on 51-36-8925Ollbjcqpk/100 WBC (Bld)8.5 %.[facility] CenterNeutrophils Auto (Bld) [#/Vol]Ordered By: Felice Veliz on 10-30-2021 Neutrophils (Bld) [#/Vol]5.3 10*3/uL1.8-7.7FAdena Health System Neutrophils/100 WBC Auto (Bld)Ordered By: Felice Veliz on 10-30-2021 Neutrophils/100 WBC (Bld)65.4 %.[facility] CenterNo Panel InformationOrdered By: Felice Veliz on 03-60-7999Fuhjgxdox GFR ()> 60 mL/MinCrystal Clinic Orthopedic CenterComment on above:GFR estimated reference range: According to KDOQI guidelines, <60 ml/min/1.73m2 is sufficient todiagnose a patient with chronic kidney disease.Hepatitis A IgM AntibodyNegativeNegativeCrystal Clinic Orthopedic CenterHepatitis B Core IgM AntibodyNegativeNegativeCrystal Clinic Orthopedic CenterHeestelle doheny eye hospital C RNA Qnt (PCR) Test InfoSee comment.[facility] CenterComment on above:The quantitative range of this assay is 15 IU/mL to 100 million IU/mL.The quantitative range of this assay is 15 IU/mL to 100million IU/mL.Pharmacy Creatinine Clearance (ChemN/[facility] Platelet mean volume Auto (Bld) [Entitic vol]Ordered By: Felice Veliz on 31-24-3013Gqpquyfy mean volume (Bld) [Entitic vol]9.6 fL6.3-10.7FAdena Health SystemPlatelets Auto (Bld) [#/Vol]Ordered By: Felice Veliz on 11-45-3941Lctsudlct (Bld) [#/Vol]251 10*3/dE466-556EcojtciueCrystal Clinic Orthopedic CenterProtein [Mass/volume] in Serum or PlasmaOrdered By: Felice Veliz on 74-99-1006Knsdzpq [Mass/Vol]7.0 g/dL6.1-7.9[facility] CenterRBC Auto (Bld) [#/Vol]Ordered By: Felice Veliz on 59-09-5189PQP (Bld) [#/Vol]4.81 10*6/uL3.60-5.00K[facility] Health Hamiltonerum nuclear antibody titer Ordered By: Felice Veliz on 86-04-7134Qnawjft Ab (S) [Titer]Negative.[facility] CenterComment on above:Negative <1:80 Borderline 1:80 Positive >1:80 ICAP nomenclature: AC-0 For more information about Hep-2 cell patterns use Resource CapitalerSuperfocus.org, the official website for the International Consensus on Antinuclear Antibody (BEATRIZ) Patterns (ICAP). Speckled cytoplasmic fluorescence is present. The antibodies noted in this pattern may be associated with, but not restricted to, primary biliary cirrhosis (PBC), polymyositis and dermatomyositis (PM/DM), and/or systemic lupus erythematosus (SLE). Performed at: [facility] [id number] Clay Maker: Gavin Mott PhD, Phone: [phone] <1:80 Borderline 1:80 Positive >1:80ICAP nomenclature: AC-0For more information about Hep-2 cell patterns useANApaPurveyourerSuperfocus.org, the official website for theInternational Consensus on Antinuclear Antibody (BEATRIZ)Patterns (ICAP).Speckled cytoplasmic fluorescence is present. Theantibodies noted in this pattern may be associated with,but not restricted to, primary biliary cirrhosis (PBC),polymyositis and dermatomyositis (PM/DM), and/or systemiclupus erythematosus (SLE).Performed at: [facility] [id number] Director: Gavin Mott PhD, Phone: [phone] or plasma alanine aminotransferase measurement without P-5'-P (enzymatic activiOrdered By: Felice Veliz on 15-37-5862DZY No additional P-5'-P [Catalytic activity/Vol]118 U/G27-89WbmzytosoCrystal Clinic Orthopedic Center Serum or plasma albumin/globulin mass ratioOrdered By: Felice Veliz on 13-11-9464Derptsj/Globulin [Mass ratio]1.0 {ratio}[facility] Hamiltonerum or plasma alkaline phosphatase measurement (enzymatic activity/volume)Ordered By: Felice Veliz on 04-62-8702UHE [Catalytic activity/Vol]79 U/D10-39UlaufkbhtKettering Health Hamiltonerum or plasma aspartate aminotransferase measurement (enzymatic activity/volume)Ordered By: Felice Veliz on 90-33-2816HHR [Catalytic activity/Vol]95 U/V78-80ScmzzrxraKettering Health Hamiltonerum or plasma calcium measurement (mass/volume)Ordered By: Felice Veliz on 08-25-2931Dvynbhy [Mass/Vol]8.8 mg/dL8.2-10.2FRiverside Methodist Hospitalerum or plasma chloride measurement (moles/volume) Ordered By: Felice Veliz on 75-36-9884Ynlbyscy [Moles/Vol]101 mmol/L95-114 [facility] Hamiltonerum or plasma glucose measurement (mass/volume)Ordered By: Felice Veliz on 31-07-6635Obozddm [Mass/Vol]100 mg/dL 70-100[facility] CenterComment on above:ADA recommended reference range Random Glucose Reference Range is dependent on time and content of last meal. Glucose of more than 200 mg/dL in a nonstressed, ambulatory subject supports the diagnosis of Diabetes Mellitus.ADA recommended reference rangeRandom Glucose Reference Range is dependent on time and content of last meal. Glucose of more than 200 mg/dL in a nonstressed, ambulatory subject supports the diagnosisof Diabetes Mellitus.Serum or plasma hepatitis C virus antibody signal/cutoff ratio by immunoassay (relatiOrdered By: Felice Veliz on 32-40-0323QIQ Ab Signal/Cutoff IA [Rel units/Vol]>11.0 s/co ratio0.0-0.9[facility] Hamiltonerum or plasma potassium measurement (moles/volume)Ordered By: Felice Veliz on 68-01-9976Hjqmgorbw [Moles/Vol]4.2 mmol/L3.5-5.1FRiverside Methodist Hospitalerum or plasma sodium measurement (moles/volume)Ordered By: Felice Veliz on 54-33-8689Ojxphs [Moles/Vol]136 mmol/J622-831ZhfackvaeKettering Health Hamiltonerum or plasma total bilirubin measurement (mass/volume) Ordered By: Felice Veliz on 64-39-4238Fuqtdcoyn [Mass/Vol]0.3 mg/dL0.3-1.2 [facility] Hamiltonerum or plasma total carbon dioxide measurement (moles/volume)Ordered By: Felice Veliz on 00-32-8839SM9 [Moles/Vol] 22.6 mmol/L22.0-30.0[facility] Hamiltonerum or plasma urea nitrogen measurement (mass/volume)Ordered By: Felice Veliz on 25-84-6331Taoi nitrogen [Mass/Vol]11 mg/dL9-[facility] CenterCBC AUTO DIFFon 86-22-4324HMUM #0.0 103/ulNormal0.0-0.1The [facility] Medical CenterComment on above: Performed By: #### CBC #### [facility] [address] [address] [address] Nolan BiggsBasophils/100 WBC (Bld)0.2 %Normal0.2-2.0[facility] Comment on above:Performed By: #### CBC #### [facility] [address] [place] [address] Dr. Nolan Proctor #0.1 103/ulNormal0.0-0.7The [facility] CenterComment on above: Performed By: #### CBC #### [facility] [address] [place] [address] Dr. Nolan Garciaosinophils/100 WBC (Bld)2.0 %Normal0.9-7.0The [facility] Comment on above:Performed By: #### CBC #### [facility] [address] [place] [address] Dr. Nolan Garciarythrocyte distribution width (RBC) [Ratio]12.7 %Rppvlc70.0-15.0 The [facility] CenterComment on above:Performed By: #### CBC #### [facility] [address] [place] [address] Dr. Nolan BiggsHematocrit (Bld) [Volume fraction]43.7 %Oixegy00.0-48.0The [facility] CenterComment on above:Performed By: #### CBC #### [facility] [address] [place] [address] Dr. Nolan BiggsHemoglobin (Bld) [Mass/Vol]14.8 g/yJTorpat50.0-16.0The [facility] CenterComment on above:Performed By: #### CBC #### [facility] [address] [place] [address] Dr. Nolan Amaro #0.02 10e3/ulNormal0.00-0.03The [facility] CenterComment on above:Performed By: #### CBC #### [facility] [address] [address] [address] Nolan Amaro %0.3 %Normal0.0-0.5The [facility] CenterComment on above: Performed By: #### CBC #### [facility] [address] [address] [address] Nolan JonBridger #0.4 103/ulCritically low1.2-3.8The [facility] Comment on above:Performed By: #### CBC #### [facility] [address] [place] [address] Dr. Nolan Castillohocytes/100 WBC (Bld)7.0 %Critically low20.5-60.0The [facility] CenterComment on above:Performed By: #### CBC #### [facility] [address] [place] [address] Dr. Nolan SolisUAL DIFF REQNONormalThe [facility] CenterComment on above: Performed By: #### CBC #### [facility] [address] [address] [address] Nolan Deleon (RBC) [Entitic mass]31.3 ziGkfsqk60.7-34.0The [facility] CenterComment on above:Performed By: #### CBC #### [facility] [address] [address] [address] Nolan Deleon (RBC) [Mass/Vol]33.9 g/iOXkopte09.9-35.2The [facility] CenterComment on above:Performed By: #### CBC #### [facility] [address] [place] [address] Dr. Nolan Deleon (RBC) [Entitic vol]92.4 dVVezmau29.0-99.0The [facility] CenterComment on above:Performed By: #### CBC #### [facility] [address] [address] [address] Nolan Merino #0.3 103/ulNormal0.3-0.8The [facility] CenterComment on above:Performed By: #### CBC #### [facility] [address] [place] [address] Dr. Nolan Sadlerocytes/100 WBC (Bld)5.7 %Normal1.7-12.0The [facility] Comment on above:Performed By: #### CBC #### [facility] [address] [place] [address] Dr. Nolan Alfred #5.1 103/ulNormal1.4-6.5The [facility] CenterComment on above:Performed By: #### CBC #### [facility] [address] [place] [address] Dr. Nolan Parryutrophils/100 WBC (Bld)84.8 %Critically high43.0-75.0The [facility] CenterComment on above:Performed By: #### CBC #### [facility] [address] [place] [address] Dr. Nolan Coronadolet mean volume (Bld) [Entitic vol]10.5 fLNormal9.5-13.5The [facility] CenterComment on above:Performed By: #### CBC #### [facility] [address] [place] [address] Dr. Nolan BiggsPLT218 103/aoJqomdb578-773Ceh [facility] CenterComment on above: Performed By: #### CBC #### [facility] [address] [place] [address] Dr. Nolan BiggsRBC4.73 106/ulNormal4.20-5.40The [facility] CenterComment on above:Performed By: #### CBC #### [facility] [address] [place] [address] Dr. Nolan BiggsWBC6.0 103/ulNormal4.0-11.0The [facility] CenterComment on above: Performed By: #### CBC #### [facility] [address] [place], [place] [id number] Dr. Nolan Shrestha URINE PROFILEon 66-60-6181Cpeyeknjz Ql (U)NegativeNormal NEGATIVEAcmc Healthcare System GlenbeighComment on above:Performed By: #### ERUR, PREGU #### [facility] [address] [place] [address] Dr. Nolan BiggsClarity (U)CLEARNormalCLEARAcmc Healthcare System GlenbeighComment on above: Performed By: #### ERUR, PREGU #### [facility] [address] [place] [address] Dr. Nolan BiggsColor (U)YELLOWNormalYELLOWAcmc Healthcare System GlenbeighComment on above: Performed By: #### ERUR, PREGU #### [facility] [address] [place] [address] Dr. Nolan Hickey micrscopic examination will be performed if indicated. NormalAcmc Healthcare System GlenbeighComment on above:Performed By: #### ERUR, PREGU #### [facility] [address] [place] [address] Dr. Nolan BiggsGlucose Ql (U)NegativeNormalNEGATIVEAcmc Healthcare System GlenbeighComment on above:Performed By: #### ERUR, PREGU #### [facility] [address] [place] [address] Dr. Nolan BiggsHemoglobin Ql (U)NegativeNormalNEGATIVEMercy Health St. [facility] on above:Performed By: #### ERUR, PREGU #### [facility] [address] [place] [address] Dr. Nolan BiggsKetones Ql (U)NegativeNormalNEGATIVEAcmc Healthcare System GlenbeighComment on above:Performed By: #### ERUR, PREGU #### [facility] [address] [place] [address] Dr. Nolan BiggsLEUKOCYTESNegativeNormalNEGATIVEAcmc Healthcare System GlenbeighComment on above:Performed By: #### ERUR, PREGU #### [facility] [address] [place] [address] Dr. Nolan BiggsNitrite Ql (U)NegativeNormalNEGATIVEAcmc Healthcare System GlenbeighComment on above:Performed By: #### ERUR, PREGU #### [facility] [address] [place] [address] Dr. Nolan BiggspH (U)7.0 [pH]Normal5-9The [facility] CenterComment on above: Performed By: #### ERUR, PREGU #### [facility] [address] [place] [address] Dr. Nolan BiggsSPEC GRAVITY1.598Tpahvx2.005-<=1.025The [facility] Medical CenterComment on above:Performed By: #### ERUR, PREGU #### [facility] [address] [place] [address] Dr. Nolan Fischer PROTEINTRACENormalNEGATIVE/ TRACEThe [facility] Medical CenterComment on above:Performed By: #### ERUR, PREGU #### [facility] [address] [place] [address] Dr. Nolan BiggsUR MICRO INDNOT INDICATEDNormalThe [facility] CenterComment on above:Performed By: #### ERUR, PREGU #### [facility] [address] [place] [address] Dr. Nolan Kiserbilinogen Qn (U)1.0 {Jan'U}/dLNormal0.2 - 1.0The [facility] CenterComment on above:Performed By: #### ERUR, PREGU #### [facility] [address] [place] [address] Dr. Nolan BiggsLIPASEon 63-88-7389Oogbfs [Catalytic activity/Vol]56.0 U/L Critically low73.0-393.0The [facility] CenterComment on above:Performed By: #### LIPA, CMP #### [facility] [address] [place] [address] Dr. Nolan BiggsPREGNANCY URon 17-09-0228XYNBUCKKD, QUALNegativeNormalNEGATIVEThe [facility] CenterComment on above:Performed By: #### ERUR, PREGU #### [facility] [address] [place] [address] Dr. Nolan Mireles 14(COMP METB)on 09-88-2648Wlslkxn [Mass/Vol]3.5 g/dLNormal 3.4-5.0The St. Charles Hospitalment on above:Performed By: #### LIPA, CMP #### [facility] [address] [address] [address] Nolan BiggsAlbumin/Globulin [Mass ratio]0.9 {ratio}NormalThe [facility] Medical CenterComment on above:Performed By: #### LIPA, CMP #### [facility] [address] [address] [address] Nolan Sage [Catalytic activity/Vol]78 U/XIjqxst57-332Mtz St. Charles Hospitalment on above:Performed By: #### LIPA, CMP #### [facility] [address] [address] [address] Nolan CowanT [Catalytic activity/Vol]157 U/LCritically zcle11-63Frk [facility] CenterComment on above:Performed By: #### LIPA, CMP #### [facility] [address] [address] [address] Nolan Lopez gap [Moles/Vol]11.3 mmol/LNormalThe [facility] Comment on above:Performed By: #### LIPA, CMP #### [facility] [address] [address] [address] Nolan BiggsAST [Catalytic activity/Vol]84 U/LCritically zflm36-30Fmh St. Charles Hospitalment on above:Performed By: #### LIPA, CMP #### [facility] [address] [address] [address] Nolan BiggsBilirubin [Mass/Vol]0.5 mg/dLNormal0.2-1.0The [facility] Comment on above:Performed By: #### LIPA, CMP #### [facility] [address] [address] [address] Nolan BiggsCalcium [Mass/Vol]8.2 mg/dLCritically low8.5-10.1The [facility] CenterComment on above:Performed By: #### LIPA, CMP #### [facility] [address] [address] [address] Nolan BiggsChloride [Moles/Vol]106 mmol/TDmvqxq15-393Qoa [facility] Comment on above:Performed By: #### LIPA, CMP #### [facility] [address] [address] [address] Nolan BiggsCO2 [Moles/Vol]23.6 mmol/TTtaqbr92.0-32.0The [facility] Comment on above:Performed By: #### LIPA, CMP #### [facility] [address] [address] [address] Nolan BiggsCreatinine [Mass/Vol]0.83 mg/dLNormal0.55-1.02The [facility] CenterComment on above:Performed By: #### LIPA, CMP #### [facility] [address] [address] [address] Nolan GarciaGFR-AF ICELANDIC>60Normal>=60The [facility] CenterComment on above:Performed By: #### LIPA, CMP #### [facility] [address] [address] [address] Nolan Cisneros-NON AF ICELANDIC>60Normal>=60The [facility] CenterComment on above:Performed By: #### LIPA, CMP #### [facility] [address] [address] [address] Nolan BiggsGlobulin (S) [Mass/Vol]4.0 g/dLNormalThe [facility] CenterComment on above:Performed By: #### LIPA, CMP #### [facility] [address] [address] [address] Nolan BiggsGlucose [Mass/Vol]115 mg/dLCritically hmui34-879Imt [facility] CenterComment on above:Performed By: #### LIPA, CMP #### [facility] [address] [place] [address] Dr. Nolan BiggsPotassium [Moles/Vol]3.9 mmol/LNormal3.5-5.1[facility] Comment on above:Performed By: #### LIPA, CMP #### [facility] [address] [address] [address] Nolan BiggsProtein [Mass/Vol]7.5 g/dLNormal6.4-8.2[facility] Comment on above:Performed By: #### LIPA, CMP #### [facility] [address] [address] [address] Nolan BiggsSodium [Moles/Vol]137 mmol/JSsqhuh426-274SvyAcmc Healthcare System Glenbe[facility] Comment on above:Performed By: #### LIPA, CMP #### [facility] [address] [place] [address] Dr. Nolan BiggsUrea nitrogen [Mass/Vol]13.0 mg/dLNormal7.0-18.0[facility] GlenbeighComment on above:Performed By: #### LIPA, CMP #### [facility] [address] [place] [address] Dr. Nolan Trujillo nitrogen/Creatinine [Mass ratio]15.7 mg/mgMedina HospitalComment on above:Performed By: #### LIPA, CMP #### [facility] [address] [place] [address] Dr. Nolan BiggsXR ABD FLAT UP_PA Jeevan 57-81-9622MM ABD FLAT UP_PA CHEXAMINATION: XR ABD FLAT UP_PA CH HISTORY: NAUSEA [...] Electronically authenticated by: PROMISE MCKEON Date: 2021-10-15 12:58[facility] Hospitalerum or plasma potassium measurement (moles/volume)Ordered By: José Miguel Mcnamara on 23-15-0563Xeifmfmsn [Moles/Vol]3.9 mmol/L3.5-5.1FAdena Health SystemActivated partial thromboplastin time (aPTT) in platelet poor plasma by coagulation aOrdered By: José Miguel Mcnamara on 35-03-7379lBFO Coag (PPP) [Time]24.4 s25.1-36.5FAdena Health SystemAutomated erythrocytes count in urine sediment (number/area)Ordered By: PROVIDER TEMP on 55-05-1901QKE Auto (Urine sed) [#/Area]1-2 [HPF]0-4FAdena Health SystemAutomated leukocytes count in urine sediment (number/area)Ordered By: PROVIDER TEMP on 54-25-6952IPZ Auto (Urine sed) [#/Area]0-1 [HPF]0-4FAdena Health SystemBasophils Auto (Bld) [#/Vol]Ordered By: José Miguel Mcnamara on 58-29-4277Bvxlklwpd (Bld) [#/Vol]0.1 10*3/uL0.0-0.2FAdena Health SystemBasophils/100 WBC Auto (Bld)Ordered By: José Miguel Mcnamara on 49-67-8559Pbnzkehlc/100 WBC (Bld)0.7 %.[facility] Bilirubin Test strip Ql (U)Ordered By: PROVIDER TEMP on 73-50-6381Gydaybfnq Ql (U)NegativeNegativeCrystal Clinic Orthopedic CenterBlood hemoglobin measurement (mass/volume)Ordered By: José Miguel Mcnamara on 44-73-3801Miztnunycm (Bld) [Mass/Vol]14.4 g/dL11.8-15.4FAdena Health SystemBlood leukocytes automated count (number/volume)Ordered By: José Miguel Mcnamara on 72-49-6068BXW (Bld) [#/Vol]8.3 10*3/uL4.5-11.0[facility] CenterBody fluid albumin measurement (mass/volume)Ordered By: José Miguel Mcnamara on 10-09-2021 Albumin (Body fld) [Mass/Vol]3.4 g/dL3.2-5.5FAdena Health System Color Auto (U)Ordered By: PROVIDER TEMP on 54-85-0893Yowdw (U)YellowYellow [facility] CenterCreatinine and Glomerular filtration rate.predicted panel (S/P/Bld)Ordered By: José Miguel Mcnamara on 10-09-2021 Creatinine [Mass/Vol]0.94 mg/dL0.44-1.03[facility] CenterDirect bilirubin measurementOrdered By: José Miguel Mcnamara on 55-56-0978Hfwhmufmf.direct [Mass/Vol]0.3 mg/dL0.0-0.4FAdena Health SystemEosinophils Auto (Bld) [#/Vol]Ordered By: José Miguel Mcnamara on 16-76-0710Evclpwtalvm (Bld) [#/Vol]0.3 10*3/uL0.0-0.45[facility] CenterEosinophils/100 WBC Auto (Bld)Ordered By: José Miguel Mcnamara on 20-49-1189Qslezqxhuzu/100 WBC (Bld) 3.1 %.[facility] CenterErythrocyte distribution width Auto (RBC) [Ratio]Ordered By: José Miguel Mcnamara on 67-36-9729Mdtanrhgahw distribution width (RBC) [Ratio]13.2 %11.9-15.3FAdena Health SystemEstimated glomerular filtration rate (GFR) non- AmericanOrdered By: José Miguel Mcnamara on 75-49-6569OMI/1.73 sq M.predicted among non-blacks MDRD (S/P/Bld) [Vol rate/Area]> 60 mL/MinCrystal Clinic Orthopedic CenterGlobulin Calc (S) [Mass/Vol]Ordered By: José Miguel Mcnamara on 12-81-5644Zqtluhca (S) [Mass/Vol]3.3 g/dLCrystal Clinic Orthopedic CenterHematocrit Auto (Bld) [Volume fraction] Ordered By: José Miguel Mcnamara on 86-85-4808Hycjfbmnpy (Bld) [Volume fraction] 42.6 %34.0-46.4FAdena Health SystemKetones Auto test strip (U) [Mass/Vol]Ordered By: PROVIDER TEMP on 99-10-1273Oazakys (U) [Mass/Vol]Trace NegativeCrystal Clinic Orthopedic CenterLaboratory - Chemistry and Chemistry - challengeOrdered By: José Miguel Mcnamara on 51-10-9025Wiewwt [Catalytic activity/Vol]31.0 U/I29-06FxccqvjmxCrystal Clinic Orthopedic CenterLaboratory - CoagulationOrdered By: José Miguel Mcnamara on 56-88-5740FN Coag (PPP) [Time]11.1 s 9.0-12.9[facility] CenterLaboratory - Hematology and Cell counts Ordered By: José Miguel Mcnamara on 67-42-2282Rnmksyify RBC/100 WBC (Bld) [Ratio] 0.1 %0-0.5FAdena Health SystemLaboratory - UrinalysisOrdered By: PROVIDER TEMP on 89-71-0225Miazwvg casts LM Ql (Urine sed)0-8 [LPF]0-8[facility] CenterLymphocytes Auto (Bld) [#/Vol]Ordered By: José Miguel Mcnamara on 39-88-3248Fosoxgivkuo (Bld) [#/Vol]2.6 10*3/uL1.00-4.8[facility] CenterLymphocytes/100 WBC Auto (Bld)Ordered By: José Miguel Mcnamara on 37-52-3243Zdhhxaeghkq/100 WBC (Bld)30.9 %.[facility] HospitalH Auto (RBC) [Entitic mass]Ordered By: José Miguel Mcnamara on 10-09-2021 MCH (RBC) [Entitic mass]31.7 pg24.7-34.3FAdena Health SystemMCHC Auto (RBC) [Mass/Vol]Ordered By: José Miguel Mcnamara on 17-06-7154GQHC (RBC) [Mass/Vol]33.7 g/dL32.0-35.0[facility] CenterMCV Auto (RBC) [Entitic vol]Ordered By: José Miguel Mcnamara on 20-68-0927BVA (RBC) [Entitic vol] 94.3 wA23-538DpxxxmljkCrystal Clinic Orthopedic CenterMonocytes Auto (Bld) [#/Vol] Ordered By: José Miguel Mcnamara on 45-69-9444Yccizlseu (Bld) [#/Vol]0.6 10*3/uL 0.0-0.8[facility] CenterMonocytes/100 WBC Auto (Bld)Ordered By: José Miguel Mcnamara on 35-34-3882Smpkjszrr/100 WBC (Bld)6.6 %.[facility] CenterNeutrophils Auto (Bld) [#/Vol]Ordered By: José Miguel Mcnamara on 28-83-3362Qcjpzafpmes (Bld) [#/Vol]4.9 10*3/uL1.8-7.7FAdena Health SystemNeutrophils/100 WBC Auto (Bld)Ordered By: José Miguel Mcnamara on 10-09-2021 Neutrophils/100 WBC (Bld)58.7 %.[facility] CenterNitrite Test strip Ql (U)Ordered By: MOLLY TATEP on 24-91-0511Wwuupai Ql (U)Negative NegativeFirCleveland Clinic Medina HospitalNo Panel InformationOrdered By: José Miguel Mcnamara on 99-23-0012Dxeeribod GFR ()> 60 mL/Min [facility] CenterComment on above:GFR estimated reference range: According to KDOQI guidelines, <60 ml/min/1.73m2 is sufficient todiagnose a patient with chronic kidney disease.Pharmacy Creatinine Clearance (Chem90.41 [facility] CenterPlatelet mean volume Auto (Bld) [Entitic vol] Ordered By: José Miguel Mcnamara on 82-31-5933Jnyejymf mean volume (Bld) [Entitic vol]9.2 fL6.3-10.7FAdena Health SystemPlatelet poor plasma international normalized ratio (INR) by coagulation assay (relatOrdered By: José Miguel Mcnamara on 86-62-4711CBX Coag (PPP) [Relative time]1.0 {INR}[facility] CenterComment on above:INR Therapeutic Range A) Pre- and Peroperative OAT started two weeks before surgery. NOT HIP SURGERY: 1.5 - 2.5 HIP SURGERY: 2 - 3 B) Primary and secondary prevention of venous THROMBOSIS: 2 - 3 C) Active venous thrombosis, pulmonary embolism and prevention of recurrent venous thrombosis: 2 - 3 D) Prevention of arterial thromboembolism including patients with mechanical heart valves: 3 - 4.5INR Therapeutic Range A) Pre- and Peroperative OAT started two weeks before surgery. NOT HIP SURGERY: 1.5 - 2.5 HIP SURGERY: 2 - 3B) Primary and secondary prevention of venous THROMBOSIS: 2 - 3C) Active venous thrombosis, pulmonary embolismand prevention of recurrent venous thrombosis: 2 - 3D) Prevention of arterial thromboembolismincluding patients with mechanical heart valves: 3 - 4.5Platelets Auto (Bld) [#/Vol]Ordered By: José Miguel Mcnamara on 08-70-8825Zlozhkpqo (Bld) [#/Vol]233 10*3/wI054-493ZcltadrqkCrystal Clinic Orthopedic CenterProtein Auto test strip (U) [Mass/Vol]Ordered By: MOLLY KURTZ on 78-85-6750Stmpnot (U) [Mass/Vol]Trace mg/dLNegativeCrystal Clinic Orthopedic CenterProtein [Mass/volume] in Serum or PlasmaOrdered By: José Miguel Mcnamara on 10-09-2021 Protein [Mass/Vol]6.7 g/dL6.1-7.9[facility] CenterRBC Auto (Bld) [#/Vol]Ordered By: José Miguel Mcnamara on 09-14-3458KPQ (Bld) [#/Vol]4.52 10*6/uL 3.60-5.00[facility]tering Health Hamiltonerum or plasma alanine aminotransferase measurement without P-5'-P (enzymatic activiOrdered By: oJsé Miguel Mcnamara on 72-43-1110MIS No additional P-5'-P [Catalytic activity/Vol] 101 U/K69-40EwqimtvxkKettering Health Hamiltonerum or plasma albumin/globulin mass ratioOrdered By: José Miguel Mcnamara on 33-57-8007Fzebzyb/Globulin [Mass ratio]1.0 {ratio}[facility] Hamiltonerum or plasma alkaline phosphatase measurement (enzymatic activity/volume)Ordered By: José Miguel Mcnamara on 04-10-7958OVE [Catalytic activity/Vol]79 U/O46-89EvmnurisnKettering Health Hamiltonerum or plasma aspartate aminotransferase measurement (enzymatic activity/volume)Ordered By: José Miguel Mcnamara on 30-10-9713SCD [Catalytic activity/Vol]66 U/B55-76RydhbsydhKettering Health Hamiltonerum or plasma calcium measurement (mass/volume)Ordered By: José Miguel Mcnamara on 30-24-5325Hfddpzv [Mass/Vol]8.8 mg/dL8.2-10.2FRiverside Methodist Hospitalerum or plasma chloride measurement (moles/volume)Ordered By: José Miguel Mcnamara on 10-09-2021 Chloride [Moles/Vol]107 mmol/L21-552UuaqjhcffKettering Health Hamiltonerum or plasma glucose measurement (mass/volume)Ordered By: José Miguel Mcnamara on 63-19-0212Dfpycee [Mass/Vol]103 mg/tU26-301AfohrnmgkCrystal Clinic Orthopedic Center Comment on above:ADA recommended reference range Random Glucose Reference Range is dependent on time and content of last meal. Glucose of more than 200 mg/dL in a nonstressed, ambulatory subject supports the diagnosis of Diabetes Mellitus.ADA recommended reference rangeRandom Glucose Reference Range is dependent on time and content of last meal. Glucose of more than 200 mg/dL in a nonstressed, ambulatory subject supports the diagnosisof Diabetes Mellitus.Serum or plasma non-glucuronidated bilirubin measurement (mass/volume)Ordered By: José Miguel Mcnamara on 89-05-0770Fdmnhfgwg.indirect [Mass/Vol]0.4 mg/dLKettering Health Hamiltonerum or plasma sodium measurement (moles/volume)Ordered By: José Miguel Mcnamara on 16-14-2992Nxxbpl [Moles/Vol]139 mmol/A016-588OhrwnzzjgKettering Health Hamiltonerum or plasma total bilirubin measurement (mass/volume)Ordered By: José Miguel Mcnamara on 28-68-1006Uwqzpbaay [Mass/Vol]0.7 mg/dL0.3-1.2FAdena Health System Serum or plasma total carbon dioxide measurement (moles/volume)Ordered By: José Miguel Mcnamara on 30-85-8326NW7 [Moles/Vol]23.0 mmol/L22.0-30.0[facility] Hamiltonerum or plasma urea nitrogen measurement (mass/volume) Ordered By: José Miguel Mcnamara on 29-24-7807Swka nitrogen [Mass/Vol]16 mg/dL9-23 [facility] Hamiltonpecific gravity Auto test strip (U) [Rel density]Ordered By: MOLLY KURTZ on 60-37-9875Xqmzfmfi gravity (U) [Rel density]1.0381.001-1.030[facility] Hamiltonquamous epithelial cells detection in urine sediment by light microscopyOrdered By: PROVIDER TEMP on 09-91-8291Bltxsgydgh cells.squamous LM Ql (Urine sed)3-4 [HPF]0-2FAdena Health SystemUrine bacteria detection by automated methodOrdered By: PROVIDER TEMP on 45-50-8554Piucwsku Auto Ql (U)1+None SeenCrystal Clinic Orthopedic CenterUrine clarity by refractometry automatedOrdered By: PROVIDER TEMP on 61-58-2403Wfdpbcs Refractometry automated (U)TurbidCleMercy Health Clermont HospitalUrine glucose measurement by automated test strip (mass/volume) Ordered By: PROVIDER TEMP on 30-42-2874Tnhafhy Auto test strip (U) [Mass/Vol] Normal mg/dLNormOur Lady of Mercy HospitalUrine hemoglobin detection by automated test stripOrdered By: PROVIDER TEMP on 16-38-4396Nmiuffktjq Auto test strip Ql (U)NegativeNegRiverview Health InstituteUrine leukocyte esterase detection by automated test stripOrdered By: PROVIDER TEMP on 46-47-4658Nsoffdqwd esterase Auto test strip Ql (U)NegativeNegRiverview Health InstituteUrobilinogen Auto test strip (U) [Mass/Vol]Ordered By: PROVIDER TEMP on 39-91-4780Wwfaklabnbqk (U) [Mass/Vol]Normal mg/dLNormal [facility] CenterpH Auto test strip (U)Ordered By: PROVIDER TEMP on 53-75-7079rC (U)7.0 [pH]5.0-9.0[facility] CenterBasophils Auto (Bld) [#/Vol]Ordered By: Dagoberto Romero on 19-94-5022Okfawhhty (Bld) [#/Vol]0.0 10*3/uL0.0-0.2FAdena Health SystemBasophils/100 WBC Auto (Bld)Ordered By: Dagoberto Romero on 97-65-0714Khulohcsz/100 WBC (Bld)0.3 %. [facility] CenterBlood hemoglobin measurement (mass/volume) Ordered By: Dagoberto Romero on 46-71-0296Xrcwxxohht (Bld) [Mass/Vol]15.0 g/dL 11.8-15.4FAdena Health SystemBlood leukocytes automated count (number/volume)Ordered By: Dagoberto Romero on 96-26-8883HDF (Bld) [#/Vol]6.9 10*3/uL4.5-11.0[facility] CenterCreatinine and Glomerular filtration rate.predicted panel (S/P/Bld)Ordered By: Dagoberto Romero on 64-82-8475Pbtjfmhhwn [Mass/Vol]0.86 mg/dL0.44-1.03[facility] CenterEosinophils Auto (Bld) [#/Vol]Ordered By: Dagoberto Romero on 09-19-2021 Eosinophils (Bld) [#/Vol]0.3 10*3/uL0.0-0.45[facility] Eosinophils/100 WBC Auto (Bld)Ordered By: Dagoberto Romero on 09-19-2021 Eosinophils/100 WBC (Bld)4.7 %.[facility] CenterErythrocyte distribution width Auto (RBC) [Ratio]Ordered By: Dagoberto Romero on 09-19-2021 Erythrocyte distribution width (RBC) [Ratio]13.1 %11.9-15.3FAdena Health SystemEstimated glomerular filtration rate (GFR) non- Ordered By: Dagoberto Romero on 03-54-8329AOZ/1.73 sq M.predicted among non-blacks MDRD (S/P/Bld) [Vol rate/Area]> 60 mL/MinCrystal Clinic Orthopedic Center Hematocrit Auto (Bld) [Volume fraction]Ordered By: Dagoberto Romero on 09-19-2021 Hematocrit (Bld) [Volume fraction]44.6 %34.0-46.4FAdena Health SystemLaboratory - Hematology and Cell countsOrdered By: Dagoberto Romero on 60-26-3870Kzslzctct RBC/100 WBC (Bld) [Ratio]0.1 %0-0.5FAdena Health SystemLymphocytes Auto (Bld) [#/Vol]Ordered By: Dagoberto Romero on 93-62-1166Wfccknssgjl (Bld) [#/Vol]2.0 10*3/uL1.00-4.8[facility] CenterLymphocytes/100 WBC Auto (Bld)Ordered By: Dagoberto Romero on 09-19-2021 Lymphocytes/100 WBC (Bld)28.5 %.[facility] HospitalH Auto (RBC) [Entitic mass]Ordered By: Dagoberto Romero on 04-13-9952TIW (RBC) [Entitic mass] 31.7 pg24.7-34.3FAdena Health SystemMCHC Auto (RBC) [Mass/Vol] Ordered By: Dagoberto Romero on 99-65-8755ZSEO (RBC) [Mass/Vol]33.7 g/dL32.0-35.0 [facility] CenterMCV Auto (RBC) [Entitic vol]Ordered By: Dagoberto Romero on 22-98-5454QGH (RBC) [Entitic vol]94.2 sG06-006FulhzfldiCrystal Clinic Orthopedic CenterMonocytes Auto (Bld) [#/Vol]Ordered By: Dagoberto Romero on 58-19-7566Cgaiszomd (Bld) [#/Vol]0.7 10*3/uL0.0-0.8[facility] CenterMonocytes/100 WBC Auto (Bld)Ordered By: Dagoberto Romero on 09-19-2021 Monocytes/100 WBC (Bld)9.7 %.[facility] CenterNeutrophils Auto (Bld) [#/Vol]Ordered By: Dagoberto Romero on 64-37-7951Fsglvqfkeqi (Bld) [#/Vol] 3.9 10*3/uL1.8-7.7FAdena Health SystemNeutrophils/100 WBC Auto (Bld)Ordered By: Dagoberto Romero on 10-22-9172Yhwhyvvhixy/100 WBC (Bld)56.8 %. [facility] CenterNo Panel InformationOrdered By: Dagoberto Romero on 24-09-6939Xoagwhdeo GFR ()> 60 mL/MinCrystal Clinic Orthopedic CenterComment on above:GFR estimated reference range: According to KDOQI guidelines, <60 ml/min/1.73m2 is sufficient todiagnose a patient with chronic kidney disease.Pharmacy Creatinine Clearance (ChemN/[facility] HospitalPlatelet mean volume Auto (Bld) [Entitic vol]Ordered By: Dagoberto Romero on 43-26-7041Fwsbrpyl mean volume (Bld) [Entitic vol]9.6 fL6.3-10.7FAdena Health SystemPlatelets Auto (Bld) [#/Vol]Ordered By: Dagoberto Romero on 44-07-3797Qbfwvdpox (Bld) [#/Vol]254 10*3/rU461-471BadythsatCrystal Clinic Orthopedic CenterRBC Auto (Bld) [#/Vol]Ordered By: Dagoberto Romero on 86-30-7571INN (Bld) [#/Vol]4.74 10*6/uL3.60-5.00[facility] Hamiltonerum or plasma calcium measurement (mass/volume)Ordered By: Dagoberto Romero on 43-66-2689Eenrxbu [Mass/Vol]8.5 mg/dL8.2-10.2FRiverside Methodist Hospitalerum or plasma chloride measurement (moles/volume)Ordered By: Dagoberto Romero on 09-19-2021 Chloride [Moles/Vol]105 mmol/C28-816VqkdidedtKettering Health Hamiltonerum or plasma glucose measurement (mass/volume)Ordered By: Dagoberto Romero on 09-19-2021 Glucose [Mass/Vol]97 mg/vZ63-578DsppihibwCrystal Clinic Orthopedic CenterComment on above:ADA recommended reference range Random Glucose Reference Range is dependent on time and content of last meal. Glucose of more than 200 mg/dL in a nonstressed, ambulatory subject supports the diagnosis of Diabetes Mellitus.Serum or plasma potassium measurement (moles/volume)Ordered By: Dagoberto Romero on 60-36-5703Ucyathxse [Moles/Vol]4.1 mmol/L3.5-5.1FRiverside Methodist Hospitalerum or plasma sodium measurement (moles/volume)Ordered By: Dagoberto Romero on 32-37-8182Xapvdg [Moles/Vol]137 mmol/L747-023SvdhqjnehKettering Health Hamiltonerum or plasma total carbon dioxide measurement (moles/volume)Ordered By: Dagoberto Romero on 86-08-7471VZ5 [Moles/Vol]23.5 mmol/L22.0-30.0[facility] Hamiltonerum or plasma urea nitrogen measurement (mass/volume)Ordered By: Dagoberto Romero on 09-19-2021 Urea nitrogen [Mass/Vol]12 mg/dL9-23[facility] CenterCBC AUTO DIFFon 76-84-4050KVJB #0.0 103/ulNormal0.0-0.1The [facility] CenterComment on above:Performed By: #### CBC #### [facility] [address] [place] [address] Dr. Nolan BiggsBasophils/100 WBC (Bld)0.2 %Normal0.2-2.0The [facility] Comment on above:Performed By: #### CBC #### [facility] [address] [place] [address] Dr. Nolan Proctor #0.2 103/ulNormal0.0-0.7The [facility] CenterComment on above: Performed By: #### CBC #### [facility] [address] [place] [address] Dr. Nolan Garciaosinophils/100 WBC (Bld)3.2 %Normal0.9-7.0The [facility] Comment on above:Performed By: #### CBC #### [facility] [address] [place] [address] Dr. Nolan Garciarythrocyte distribution width (RBC) [Ratio]12.3 %Shvldb22.0-15.0 The [facility] CenterComment on above:Performed By: #### CBC #### [facility] [address] [place] [address] Dr. Nolan BiggsHematocrit (Bld) [Volume fraction]44.6 %Yyozzb31.0-48.0The [facility] CenterComment on above:Performed By: #### CBC #### [facility] [address] [place] [address] Dr. Nolan BiggsHemoglobin (Bld) [Mass/Vol]14.8 g/oUCcfgul91.0-16.0The [facility] CenterComment on above:Performed By: #### CBC #### [facility] [address] [place] [address] Dr. Nolan Amaro #0.02 10e3/ulNormal0.00-0.03The [facility] CenterComment on above:Performed By: #### CBC #### [facility] [address] [place] [address] Dr. Nolan Amaro %0.3 %Normal0.0-0.5The [facility] CenterComment on above: Performed By: #### CBC #### [facility] [address] [place] [address] Dr. Nolan Dixon #2.4 103/ulNormal1.2-3.8The [facility] CenterComment on above:Performed By: #### CBC #### [facility] [address] [place] [address] Dr. Nolan Castillohocytes/100 WBC (Bld)40.0 %Wmupmt05.5-60.0[facility] on above:Performed By: #### CBC #### [facility] [address] [place] [address] Dr. Nolan SolisUAL DIFF REQNONormalThe [facility] CenterComment on above: Performed By: #### CBC #### [facility] [address] [place] [address] Dr. Nolan Deleon (RBC) [Entitic mass]30.9 giMakqtq00.7-34.0The [facility] on above:Performed By: #### CBC #### [facility] [address] [place] [address] Dr. Nolan Deleon (RBC) [Mass/Vol]33.2 g/dHMnhymq65.9-35.2The [facility] on above:Performed By: #### CBC #### [facility] [address] [place] [address] Dr. Nolan Deleon (RBC) [Entitic vol]93.1 uKBhzhvb48.0-99.0The [facility] on above:Performed By: #### CBC #### [facility] [address] [place] [address] Dr. Nolan Merino #0.5 103/ulNormal0.3-0.8The [facility] CenterComment on above:Performed By: #### CBC #### [facility] [address] [place] [address] Dr. Nolan BiggsMonocytes/100 WBC (Bld)8.4 %Normal1.7-12.0The [facility] Comment on above:Performed By: #### CBC #### [facility] [address] [place] [address] Dr. Nolan ParryUT #2.9 103/ulNormal1.4-6.5The [facility] CenterComment on above:Performed By: #### CBC #### [facility] [address] [place] [address] Dr. Nolan Parryutrophils/100 WBC (Bld)47.9 %Nsngzx09.0-75.0The [facility] CenterComment on above:Performed By: #### CBC #### [facility] [address] [place] [address] Dr. Nolan BiggsPlatelet mean volume (Bld) [Entitic vol]10.7 fLNormal9.5-13.5The [facility] CenterComment on above:Performed By: #### CBC #### [facility] [address] [place] [address] Dr. Nolan BiggsPLT298 103/hcNbpdvd722-132Vne [facility] CenterComment on above: Performed By: #### CBC #### [facility] [address] [place] [address] Dr. Nolan BiggsRBC4.79 106/ulNormal4.20-5.40The [facility] CenterComment on above:Performed By: #### CBC #### [facility] [address] [place] [address] Dr. Nolan BiggsWBC6.0 103/ulNormal4.0-11.0The [facility] CenterComment on above: Performed By: #### CBC #### [facility] [address] [place] [address] Dr. Nolan BiggsCT ABD/PELVIS WO CONon [id number] ABD/PELVIS WO CONTECHNIQUE: CT abdomen and pelvis. Helically acquired axial images of [...] Electronically authenticated by: LEILANI SOLOMON Date: 2021-09-13 21:13[facility] HospitalCovid-19 PCR (CVDTBH)on 54-82-3159ZNPL-CoV-2 (COVID-19) RNA LINDSEY+probe Ql (Unsp spec)Not detectedNormalNOT DETECTEDThe [facility] Comment on above:Result Comment: When diagnostic testing is negative, the [...] for this test is supported by the [place] of Health and Human Service's declaration that circumstances exist to justify the emergency use of in vitro diagnostics for the detection and/or diagnosis of the virus that causes COVID-19. This EUA will remain in effect for the duration of the COVID-19 declaration justifying emergency of IVDs, unless it is terminated or revoked by the FDA (after which the test may no longer be used).Performed By: #### CBC #### [facility] [address] [place] [address] Dr. Nolan Shrestha URINE PROFILEon 40-46-3510Gswkzwlmt Ql (U)SMALLAbnormal NEGATIVEAcmc Healthcare System GlenbeighComment on above:Performed By: #### ERUR #### [facility] [address] [address] [address] Nolan BiggsClarity (U)CLEARNormalCLEARAcmc Healthcare System GlenbeighComment on above: Performed By: #### ERUR #### [facility] [address] [place] [address] Dr. Nolan Molina (U)DK. YELLOWNormalYELLOWAcmc Healthcare System GlenbeighComment on above:Performed By: #### ERUR #### [facility] [address] [place] [address] Dr. Nolan Hickey micrscopic examination will be performed if indicated. NormalAcmc Healthcare System GlenbeighComment on above:Performed By: #### ERUR #### [facility] [address] [place] [address] Dr. Nolan BiggsGlucose Ql (U)NegativeNormalNEGATIVEAcmc Healthcare System GlenbeighComment on above:Performed By: #### ERUR #### [facility] [address] [place] [address] Dr. Nolan BiggsHemoglobin Ql (U)NegativeNormalNEGATIVEAcmc [facility] Comment on above:Performed By: #### ERUR #### [facility] [address] [place] [address] Dr. Nolan BiggsKetones Ql (U)NegativeNormalNEGATIVEAcmc Healthcare System GlenbeighComment on above:Performed By: #### ERUR #### [facility] [address] [place] [address] Dr. Nolan BiggsLEUKOCYTESNegativeNormalNEGATIVEAcmc Healthcare System GlenbeighComment on above:Performed By: #### ERUR #### [facility] [address] [place] [address] Dr. Nolan Wiseman Ql (U)NegativeNormalNEGATIVEThe [facility] CenterComment on above:Performed By: #### ERUR #### [facility] [address] [place] [address] Dr. Nolan BiggspH (U)5.5 [pH]Normal5-9The [facility] CenterComment on above: Performed By: #### ERUR #### [facility] [address] [place] [address] Dr. Nolan Griffin GRAVITY>=1.955Rlabgidj4.005-<=1.025The [facility] Comment on above:Performed By: #### ERUR #### [facility] [address] [place] [address] Dr. Nolan Fischer PROTEINNegativeNormalNEGATIVE/ TRACEThe [facility] Comment on above:Performed By: #### ERUR #### [facility] [address] [place] [address] Dr. Nolan Gaston MICRO INDNOT INDICATEDNormalThe [facility] CenterComment on above:Performed By: #### ERUR #### [facility] [address] [place] [address] Dr. Nolan Ribeiro Qn (U)1.0 {Jan'U}/dLNormal0.2 - 1.0Acmc Healthcare System GlenbeighComment on above:Performed By: #### ERUR #### [facility] [address] [place] [address] Dr. Nolan Ferrara A AND B AGon [id number] A AGNegativeNormal NEGATIVE SEE COMMENTThe [facility] CenterComment on above:Performed By: #### CBC #### [facility] [address] [place] [address] Dr. Nolan Ferrara B AGNegativeNormalNEGATIVE SEE COMMENTThe [facility] CenterComment on above:Performed By: #### CBC #### [facility] [address] [place] [address] Dr. Nolan BiggsINTERNAL CONTROLSWithin Normal LimitsNormalWithin Normal Limits The [facility] Hospitalment on above:Performed By: #### CBC #### [facility] [address] [place] [address] Dr. Nolan BiggsLACTATE/LACTIC ACIDon [id number] [Moles/Vol]0.4 mmol/L Normal0.4-1.9The [facility] CenterComment on above:Performed By: #### CBC #### [facility] [address] [place] [address] Dr. Nolan BiggsLIPASEon [id number] [Catalytic activity/Vol]63.0 U/L Critically low73.0-393.0The [facility]. Charles Hospitalment on above:Performed By: #### CMP, HSTROPN, LIPA #### [facility] [address] [place] [address] Dr. Nolan BiggsPROF 14(COMP METB)on 76-45-4906Nzhbxja [Mass/Vol]3.5 g/dLNormal 3.4-5.0The [facility]. Charles Hospitalment on above:Performed By: #### CMP, HSTROPN, LIPA #### [facility] [address] [place] [address] Dr. Nolan BiggsAlbumin/Globulin [Mass ratio]0.8 {ratio}NormalThe [facility] on above:Performed By: #### CMP, HSTROPN, LIPA #### [facility] [address] [place] [address] Dr. Nolan Sage [Catalytic activity/Vol]83 U/CVqemqx61-572Wja [facility] on above:Performed By: #### CMP, HSTROPN, LIPA #### [facility] [address] [place] [address] Dr. Nolan Mercado [Catalytic activity/Vol]143 U/LCritically hbdb98-70Xui [facility] CenterComment on above:Performed By: #### CMP, HSTROPN, LIPA #### [facility] [address] [address] [address] Nolan Moseson gap [Moles/Vol]10.9 mmol/LNormalAcmc [facility] Comment on above:Performed By: #### CMP, HSTROPN, LIPA #### [facility] [address] [place] [address] Dr. Nolan BiggsAST [Catalytic activity/Vol]82 U/LCritically xuwe40-94Utw [facility] CenterComment on above:Performed By: #### CMP, HSTROPN, LIPA #### [facility] [address] [place] [address] Dr. Nolan BiggsBilirubin [Mass/Vol]0.6 mg/dLNormal0.2-1.0[facility] Comment on above:Performed By: #### CMP, HSTROPN, LIPA #### [facility] [address] [place] [address] Dr. Nolan BiggsCalcium [Mass/Vol]8.4 mg/dLCritically low8.5-10.1The [facility] CenterComment on above:Performed By: #### CMP, HSTROPN, LIPA #### [facility] [address] [place] [address] Dr. Nolan BiggsChloride [Moles/Vol]106 mmol/AWyboap08-546BypAcmc [facility] Comment on above:Performed By: #### CMP, HSTROPN, LIPA #### [facility] [address] [place] [address] Dr. Nolan BiggsCO2 [Moles/Vol]26.2 mmol/KNyiwpx91.0-32.0[facility] Comment on above:Performed By: #### CMP, HSTROPN, LIPA #### [facility] [address] [place] [address] Dr. Nolan BiggsCreatinine [Mass/Vol]0.82 mg/dLNormal0.55-1.02The [facility] CenterComment on above:Performed By: #### CMP, HSTROPN, LIPA #### [facility] [address] [place] [address] Dr. Nolan Cisneros-AF ICELANDIC>60Normal>=60The [facility] CenterComment on above:Performed By: #### CMP, HSTROPN, LIPA #### [facility] [address] [address] [address] Nolan Cisneros-NON AF ICELANDIC>60Normal>=60The [facility] CenterComment on above:Performed By: #### CMP, HSTROPN, LIPA #### [facility] [address] [address] [address] Nolan BiggsGlobulin (S) [Mass/Vol]4.2 g/dLNormalThe [facility] CenterComment on above:Performed By: #### CMP, HSTROPN, LIPA #### [facility] [address] [address] [address] Nolan BiggsGlucose [Mass/Vol]112 mg/dLCritically qciv34-903Pcw [facility] CenterComment on above:Performed By: #### CMP, HSTROPN, LIPA #### [facility] [address] [address] [address] Nolan BiggsPotassium [Moles/Vol]4.1 mmol/LNormal3.5-5.1The [facility] Comment on above:Performed By: #### CMP, HSTROPN, LIPA #### [facility] [address] [address] [address] Nolan BiggsProtein [Mass/Vol]7.7 g/dLNormal6.4-8.2The [facility] Comment on above:Performed By: #### CMP, HSTROPN, LIPA #### [facility] [address] [address] [address] Nolan BiggsSodium [Moles/Vol]139 mmol/OYzktyb750-077Dlc [facility] Comment on above:Performed By: #### CMP, HSTROPN, LIPA #### [facility] [address] [address] [address] Nolan BiggsUrea nitrogen [Mass/Vol]11.0 mg/dLNormal7.0-18.0Hol[facility] Health Systemment on above:Performed By: #### CMP, HSTROPN, LIPA #### [facility] [address] [place] [address] Dr. Nolan Trujillo nitrogen/Creatinine [Mass ratio]13.4 mg/mgNoOhioHealth Doctors HospitalComment on above:Performed By: #### CMP, HSTROPN, LIPA #### [facility] [address] [place] [address] Dr. Nolan BiggsPROTIMEon 12-49-1589RQQ Coag (PPP) [Relative time]1.00 {INR} NormalThe [facility] on above:Performed By: #### CBC #### [facility] [address] [place] [address] Dr. Nolan Calvo GUIDELINESSEE BELOWMedina HospitalComment on above:Result Comment: DESIRED INR: 2.0 - 3.0 CONDITIONS NOT LISTED BELOW 2.5 - 3.5 FOR PROSTHETIC HEART VALVE REPLACEMENT 2.5 - 3.5 RECURRENT THROMBOSIS Performed By: #### CBC #### [facility] [address] [place] [address] Dr. Nolan BiggsPT Coag (PPP) [Time]10.8 sNormal9.0-11.6The [facility] Comment on above:Performed By: #### CBC #### [facility] [address] [place] [address] Dr. Nolan Torres 13-28-5781eANV Coag (Bld) [Time]27.3 qNeujck81.3-36.2Acmc Healthcare System GlenbeighComment on above:Performed By: #### CBC #### [facility] [address] [place] [address] Dr. Nolan Palmer, [facility] SENSITIVITYon 70-08-0611YOXYOE<4.6Ipgrxs9.0-51.3 The [facility] CenterCommclaren northern [place] on above:Result Comment: CUT-OFF POINTS HAVE BEEN ESTABLISHED BASED ON THE FOURTH UNIVERSAL DEFINITIONS OF MYOCARDIAL INFARCTION. THE UPPER REFERENCE LIMIT (URL) OF TROPONIN, DEFINED THE 99TH PERCENTILE OF cTnI DISTRIBUTION IN A REFERENCE POPULATION, HAS BEEN CONFIRMED THE DECISION THRESHOLD FOR DC DIAGNOSIS.Performed By: #### CBC #### [facility] [address] [address] [address] Nolna Thrasher [id number] CLINICAL HISTORYOPERATIVE PROCEDURE: Robotic TLH, enterolysis, PACHECO, cystoscopy CLINICAL INFORMATION: Endometriosis, pelvic pain [facility] HospitalCONVERTED ELECTRONIC SIGNATUREGIULIA GOLDSTEIN M.D. (Electronic signature on file) Final Signed Out: 12/27/2010 16:25 [facility] HospitalCONVERTED FINAL DIAGNOSISFINAL DIAGNOSIS: HYSTERECTOMY - SINGLE FOCUS OF MODERATE SQUAMOUS DYSPLASIA OF THE CERVIX. THE RESECTION MARGIN IS FREE OF INVOLVEMENT. ADENOMYOSIS. EARLY SECRETORY PHASE ENDOMETRIUM. SPECIMEN: UTERUS [facility] HealthVERTED GROSS DESCRIPTIONGROSS DESCRIPTION: Uterus Container labeled uterus. Received is a uterus weighing 112 gm and measuring 8.5 x 7 x 4 cm. The serosal surface is smooth, noguera-pink. The cervix has a diameter of 3 cm. The ectocervix is dusky, grayish-pink. The cervical os is linear, measuring 1.4 cm in diameter. Sections through the cervix reveal several nabothian cysts. The specimen is bivalved and the endometrial cavity measures 5 x 3 cm. The endometrium is slightly irregular, red-noguera and measures up to 0.4 cm. On cut section, the myometrium appears focally thickened, noguera with areas suggestive of possible adenomyosis. The myometrium measures up to 2 cm. Sections are as follows: 1 - anterior cervix, 2 - posterior cervix, 3&4 - endomyometrium anterior, 5&6 - endomyometrium posterior, remaining cervix and lower uterine segment - 7-19. SMS/lrs MICROSCOPIC DESCRIPTION: Slides reviewed. EAC/gpl [facility] HospitalCONVERTED ORDERING PROVIDEROrdering Provider: JANAY [facility] Vital Signs Date TimeVital SignValuePerforming WupdssrtgPtddvslm20-75-5429 16:28-0500 Diastolic blood drlefpnu37 mm[Hg]Courtney Robison MD Work Phone: [facility] HospitalLcpixp83-13-5751 16:28-0500Heart rate89 /min Courtney Robison MD Work Phone: [facility] HospitalUrczis31-46-8160 16:28-3115BbR5% (BldA) [Mass fraction]97 %Courtney Robison MD Work Phone: [phone] HospitalTnrbyo32-69-4756 16:28-0500Systolic blood plqeyiug503 mm[Hg]Courtney Robison MD Work Phone: [phone] HospitalPqrpca52-10-9304 14:55-0500Body mass index (BMI) [Ratio]45.7 kg/j2ZnuxnCourtney Robison MD Work Phone: [phone])[facility] HospitalZadvem12-59-8630 14:55-0500Body temperature 97.3 [degF]Courtney Robison MD Work Phone: [phone])[facility] HospitalHgjfjz11-46-2952 14:55-0500Body xhhfil900.03 kgCourtney Robison MD Work Phone: [phone] HospitalTnkumi57-72-4650 14:55-0500Respiratory rate16 /minCourtney Robison MD Work Phone: 1(358)[facility] HospitalJzvyib60-25-2519 19:32-0400Body lvomeo217 cm Jenny King MD Work Phone: [phone])[facility] HospitalZvbjin45-19-6205 19:32-0400Body mass index (BMI) [Ratio]46.06 kg/m2Jenny King MD Work Phone: [phone])[facility] HospitalArrghc32-08-7607 19:32-0400Body temperature 97.9 [degF]Jenny King MD Work Phone: [phone])[facility] HospitalOvediz95-71-8835 19:32-0400Body .94 kgJenny King MD Work Phone: 1(811)[facility] HospitalFoxsrn78-95-0563 19:32-0400Diastolic blood pwdnhibt65 mm[Hg]Jenny King MD Work Phone: 1(712)[facility] HospitalVmkcki10-20-2832 19:32-0400Heart rate94 /min Jenny King MD Work Phone: 1(218)[facility] HospitalUsefaq78-06-0275 19:32-0400Respiratory rate20 /Rahul King MD Work Phone: 1(335)[facility] HospitalSenloh62-87-9423 19:32-9269QiU8% (BldA) [Mass fraction]98 %Jenny King MD Work Phone: 1(857)[facility] HospitalHnhxup26-65-7761 19:32-0400Systolic blood pctuzpvl299 mm[Hg]Jenny King MD Work Phone: 1(759)[facility] HospitalPpsern40-88-6248 19:21-0400Body xjzwyq345.02 cmJaclmargarita Rodriguezki HOT BLASTER Work Phone: [phone])[address]10-11-2025 19:21-0400 Body ergrduhvojm82.5 [degF]Kristan Rodriguezki HOT BLASTER Work Phone: [phone])[address]10-11-2025 19:21-0400 Body pxldyu246.9 kgJaclmargarita Rodriguezki HOT BLASTER Work Phone: [phone])[address]10-11-2025 19:21-0400 Diastolic blood fhritevn92 mm[Hg]Kristan Rodriguezki HOT BLASTER Work Phone: [phone])[address]10-11-2025 19:21-0400 Heart vjzf364 /minJaclyn Yueersezwski HOT BLASTER Work Phone: 1(484)191-[address] [place], [place] [address]210-11-2025 19:21-0400 Respiratory rate18 /minJaclyn Yueersezwski HOT BLASTER Work Phone: [phone])[address]10-11-2025 19:21-0400 SaO2% (BldA) [Mass fraction]100 %Kristan Lau HOT BLASTER Work Phone: [phone])[address]10-11-2025 19:21-0400 Systolic blood ybvxgqvn737 mm[Hg]Kristan Lau HOT BLASTER Work Phone: [phone])[address]09-24-2025 19:39-0400 Body clpexf355.02 cmColinmargarita Lau HOT BLASTER Work Phone: [phone]-[facility]09-24-2025 19:39-0400 Body eucahghxnvi00.7 [degF]Kristan Lau HOT BLASTER Work Phone: [phone]-[facility]09-24-2025 19:39-0400 Body pokbur231 kgColinmargarita Lau HOT BLASTER Work Phone: [phone]-[facility]09-24-2025 19:39-0400 Diastolic blood xnpheqac69 mm[Hg]Kristan Lau HOT BLASTER Work Phone: [phone]-[facility]09-24-2025 19:39-0400 Heart szak515 /minKristan Lau HOT BLASTER Work Phone: [phone]-[facility]09-24-2025 19:39-0400 Respiratory rate18 /minKristan Lau HOT BLASTER Work Phone: [phone]-[facility]09-24-2025 19:39-0400 SaO2% (BldA) [Mass fraction]99 %Kristan Lau HOT BLASTER Work Phone: [facility]09-24-2025 19:39-0400 Systolic blood rzljjjla331 mm[Hg]Kristan Lau HOT BLASTER Work Phone: [facility]09-05-2025 13:10-0400 Diastolic blood resgubup57 mm[Hg]Michel El-Ravin DO Work Phone: [facility]09-05-2025 13:10-0400Heart rate82 /minTony El-Ravin DO Work Phone: [facility] CenterParadigm SolarPcuxow99-14-0299 13:10-0400 Respiratory rate11 /minTony El-Ravin DO Work Phone: [facility]09-05-2025 13:101636FqV9% (BldA) [Mass fraction]94 %Michel Calero DO Work Phone: [facility]09-05-2025 13:100400Systolic blood nrpgknmu733 mm[Hg]Michel Calero DO Work Phone: [facility]09-05-2025 13:05-0400Body sefovdhqmdw07.2 [degF]Michel Calero DO Work Phone: [facility]09-05-2025 08:44-0400Body yhqyho394 Sadi Calero DO Work Phone: [facility]09-05-2025 08:44-0400Body mass index (BMI) [Ratio]46.94 kg/m2Michel Calero DO Work Phone: [facility]09-05-2025 08:44-0400Body hxedef054.2 kgMichel Calero DO Work Phone: [facility]08-29-2025 19:23-0400Body lfrnze201.02 cmKristan Lau HOT BLASTER Work Phone: [facility]08-29-2025 19:23-0400 Body vbwmmwydgjf69.4 [degF]Kristan Lau HOT BLASTER Work Phone: [facility]08-29-2025 19:23-0400 Body jmjaub335.25 kgKristan Lau HOT BLASTER Work Phone: [facility]08-29-2025 19:23-0400 Diastolic blood efnfesih38 mm[Hg]Kristan Lau HOT BLASTER Work Phone: [facility]08-29-2025 19:23-0400 Heart rate98 /minKristan Lau HOT BLASTER Work Phone: [facility]08-29-2025 19:23-0400 Respiratory rate18 /minColinyn Luis Migueldemetriusinna HOT BLASTER Work Phone: [facility]08-29-2025 19:23-0400 SaO2% (BldA) [Mass fraction]96 %Kristan Lau HOT BLASTER Work Phone: [facility]08-29-2025 19:23-0400 Systolic blood sckatcqi963 mm[Hg]Kristan Lau HOT BLASTER Work Phone: [facility]08-29-2025 08:32-0400 Diastolic blood dabbnljc32 mm[Hg]oz NpBon [facility]08-29-2025 08:32-0400Systolic blood uynyinbr235 mm[Hg]oz NpCar[facility] 11-20-2024 08:30-0400Body cmMl NpBon [facility]08-29-2025 08:30-0400Body mass index (BMI) [Ratio]44.49 kg/m2Ml NpBon [facility]08-29-2025 08:30-0400Body ykiciiznnlq10.1 [degF][facility] NpCar[facility]08-29-2025 08:30-0400Body .76 kgMl NpCar[facility] 11-20-2024 08:30-0400Heart rate81 /minMloz NpBon [facility]08-29-2025 08:30-0400Respiratory rate17 /minMloz NpCar[facility]08-29-2025 08:30-0478LuA8% (BldA) [Mass fraction]97 %oz [facility] 11-12-2024 21:13-0400Heart rate98 /minMichael Kathy DO Work Phone: [facility]08-21-2025 21:13-0400 Respiratory rate18 /minMichael Canton DO Work Phone: [facility]08-21-2025 21:13-9430HqO9% (BldA) [Mass fraction]99 %Mora Canton Work Phone: [facility]08-21-2025 20:05-0400Body iiyyvj011 cmVeterans Affairs Black Hills Health Care Systempepe [facility] Work Phone: [facility]08-21-2025 20:05-0400Body mass index (BMI) [Ratio]46.94 kg/a7CxrrmgmPatton State Hospital Work Phone: [facility]08-21-2025 20:05-0400Body jmewmqdgyjg35.4 [degF]Mora Canton Work Phone: [facility]08-21-2025 20:05-0400Body iogine743.2 kgPatton State Hospital Work Phone: [facility]08-21-2025 20:05-0400Diastolic blood awthliwk70 mm[Hg]Mora Marcosfield Work Phone: [facility]08-21-2025 20:05-0400Systolic blood frrvekbg832 mm[Hg]Mora Marcosfield Work Phone: [facility]08-19-2025 05:22-0400Diastolic blood meojpnds306 mm[Hg]Melody Owens MD Work Phone: [facility]08-19-2025 05:22-0400 Heart rate87 /Shahzad Owens MD Work Phone: [facility]08-19-2025 05:22-0400 Respiratory rate17 /Shahzad Owens MD Work Phone: [facility]08-19-2025 05:22-0400 SaO2% (BldA) [Mass fraction]99 %Melody Owens MD Work Phone: [facility]08-19-2025 05:22-0400 Systolic blood mm[Hg]Melody Owens MD Work Phone: [phone] [place], [place] [address]08-18-2025 16:13-0400 Body hiesgk721 cmMelody Owens MD Work Phone: [phone]08-18-2025 16:13-0400 Body mass index (BMI) [Ratio]46.94 kg/w4IyctcpjfMelody Owens MD Work Phone: [phone])[address]08-18-2025 16:13-0400 Body dkdyjauqjyd52.2 [degF]Melody Owens MD Work Phone: [phone]08-18-2025 16:13-0400 Body cwvbod193.2 kgMelody Owens MD Work Phone: [phone])[address]08-17-2025 18:48-0400 Body .02 cmKristan Lau HOT BLASTER Work Phone: 1([phone])146-[address] [place], [place] [address]208-17-2025 18:48-0400 Body ociugepxkpi62.7 [degF]Kristan Lau HOT BLASTER Work Phone: [facility]08-17-2025 18:48-0400 Body yjvwxv641.2 kgKristan Lau HOT BLASTER Work Phone: [phone]-[facility]08-17-2025 18:48-0400 Diastolic blood tnmmuska73 mm[Hg]Kristan Lau HOT BLASTER Work Phone: [facility]08-17-2025 18:48-0400 Heart rate81 /minKristan Lau HOT BLASTER Work Phone: [facility]08-17-2025 18:48-0400 Respiratory rate20 /minKristan Lau HOT BLASTER Work Phone: [phone]-[facility]08-17-2025 18:48-0400 SaO2% (BldA) [Mass fraction]98 %Kristan Rodriguezki HOT BLASTER Work Phone: [facility]08-17-2025 18:48-0400 Systolic blood hsrgtuyv269 mm[Hg]Kristan Rodriguezki HOT BLASTER Work Phone: [phone] HospitalC[facility]08-10-2025 13:24-0400 Body ixvctq810.02 cmKristan Lau HOT BLASTER Work Phone: [phone]08-10-2025 13:24-0400 Body qevlfaddxkp63.2 [degF]Kristan Lau HOT BLASTER Work Phone: [phone]08-10-2025 13:24-0400 Body zehhia293.25 kgJacasimiro Lau HOT BLASTER Work Phone: [phone]08-10-2025 13:24-0400 Diastolic blood fdmjqucm11 mm[Hg]Kristan Lau HOT BLASTER Work Phone: [phone]-[facility]08-10-2025 13:24-0400 Heart ttwi450 /minKristan Lau HOT BLASTER Work Phone: [phone]08-10-2025 13:24-0400 Respiratory rate18 /minKristan Lau HOT BLASTER Work Phone: [phone]-[facility]08-10-2025 13:24-0400 SaO2% (BldA) [Mass fraction]98 %Kristan Lau HOT BLASTER Work Phone: [phone]-[facility]08-10-2025 13:24-0400 Systolic blood yyaarfsl975 mm[Hg]Kristan Lau HOT BLASTER Work Phone: [phone]08-09-2025 14:00-0400 Heart rate88 /minKristan Kent HOT BLASTER - WAIVER ANALYST Work Phone: [facility]08-09-2025 14:00-0400 Respiratory rate18 /minPhoenixcasimiro Kent HOT BLASTER - WAIVER ANALYST Work Phone: Bon [facility]08-09-2025 13:11-0400Body glpylf414 cmPhoenixcasimiro Marshi HOT BLASTER - WAIVER ANALYST Work Phone: Bon [facility] [facility] 13:11-0400Body mass index (BMI) [Ratio]46.94 kg/a7Ciczqvcasimiro Marshi HOT BLASTER - WAIVER ANALYST Work Phone: Bon [facility]08-09-2025 13:11-0400Body .5 [degF]Kristan Marshi HOT BLASTER - WAIVER ANALYST Work Phone: [facility]08-09-2025 13:11-0400Body .2 kgColinmargarita Zenjerzyi HOT BLASTER - WAIVER ANALYST Work Phone: [facility]08-09-2025 13:11-0400Diastolic blood mm[Hg]Kristanradha Marshi HOT BLASTER - WAIVER ANALYST Work Phone: [facility]08-09-2025 13:11-7369VxX3% (BldA) [Mass fraction]98 %Kristan Marshi HOT BLASTER - WAIVER ANALYST Work Phone: Bon [facility]08-09-2025 13:11-0400Systolic blood mm[Hg]Kristan Kent HOT BLASTER - WAIVER ANALYST Work Phone: Bon [facility]08-07-2025 19:45-0400Body vviosi173.02 cmKristan Lau HOT BLASTER Work Phone: [facility]08-07-2025 19:45-0400 Body wuwxmhcyjug11 [degF]Kristan Lau HOT BLASTER Work Phone: [facility]08-07-2025 19:45-0400 Body rtovbx781.2 kgPhoenixcasimiro Turnercecy HOT BLASTER Work Phone: [facility]08-07-2025 19:45-0400 Diastolic blood gkozdpsl368 mm[Hg]Kristanradha Lau HOT BLASTER Work Phone: [facility]08-07-2025 19:45-0400 Heart dalm029 /minPhoenixdevendramargarita Lau HOT BLASTER Work Phone: [facility]08-07-2025 19:45-0400 Respiratory rate20 /Mariah Judi HOT BLASTER Work Phone: [facility]08-07-2025 19:45-0400 SaO2% (BldA) [Mass fraction]97 %Kristanradha Lau HOT BLASTER Work Phone: [facility]08-07-2025 19:45-0400 Systolic blood lywcychs387 mm[Hg]Kristan Lau HOT BLASTER Work Phone: [facility]08-06-2025 20:08-0400 Body mass index (BMI) [Ratio]47.46 kg/f3AiagfcJeyson Caban MD Work Phone: [facility] CenterParadigm SolarSujmny46-74-4325 20:08-0400Body gmnyypevqnh21.1 [degF]Jeyson Caban MD Work Phone: [facility] CenterPar[facility] SolarUknhrj05-95-4183 20:08-0400Body lfhsik011.52 kgJeyson Caban MD Work Phone: [facility]08-06-2025 20:08-0400Diastolic blood ijzbvgiz58 mm[Hg]Jeyson Caban MD Work Phone: [facility] CenterParadigm SolarQtbnpr71-09-5301 20:08-0400Heart gcmp678 /Steve Caban MD Work Phone: [facility]08-06-2025 20:08-0400 Respiratory rate20 /minJeyson Caban MD Work Phone: [facility]08-06-2025 20:08-2524SyD9% (BldA) [Mass fraction]97 %Jeyson Caban MD Work Phone: [facility]08-06-2025 20:08-0400Systolic blood jbhpiwlb668 mm[Hg]Jeyson Caban MD Work Phone: [facility]08-02-2025 22:32-0400Body jwdrzo192 cmBilly Kearney DO Work Phone: [facility]08-02-2025 22:32-0400Body mass index (BMI) [Ratio]46.06 kg/f4IepwcyBilly Kearney DO Work Phone: [facility]08-02-2025 22:32-0400Body ffvevwggopy61.1 [degF]Billy Kearney DO Work Phone: [facility]08-02-2025 22:32-0400Body hheqwa246.94 kgBilly Kearney DO Work Phone: [facility]08-02-2025 22:32-0400Diastolic blood vijauxpg170 mm[Hg]Billy Kearney DO Work Phone: [facility]08-02-2025 22:32-0400Heart sykm492 /Marc Kearney DO Work Phone: [facility]08-02-2025 22:32-0400 Respiratory rate20 /Marc Kearney DO Work Phone: [facility]08-02-2025 22:32-5074GgW6% (BldA) [Mass fraction]96 %Billy Kearney DO Work Phone: [facility]08-02-2025 22:32-0400Systolic blood zfybaizd570 mm[Hg]Billy Kearney DO Work Phone: [facility]08-01-2025 19:32-0400Body qudjdj250.02 cmJaclmargarita Ciisabelki HOT BLASTER Work Phone: [facility]08-01-2025 19:32-0400 Body otnwtokryhu22.7 [degF]Kristan Rodriguezki HOT BLASTER Work Phone: [phone]-[facility]08-01-2025 19:32-0400 Body aoagup003.2 kgJaclmargarita Ciisabelki HOT BLASTER Work Phone: [phone] [place], [place] 6040208-01-2025 19:32-0400 Diastolic blood ksblkyvw68 mm[Hg]Kristan Rodriguezki HOT BLASTER Work Phone: [phone]08-01-2025 19:32-0400 Heart rate86 /minPhoenixclmargarita Gutiérrezezanderski HOT BLASTER Work Phone: [phone])437-[facility]08-01-2025 19:32-0400 Respiratory rate18 /minJaclmargarita Rodriguezki HOT BLASTER Work Phone: 1(479)784-[address] [place], [place] 6040208-01-2025 19:32-0400 SaO2% (BldA) [Mass fraction]100 %Kristan Lau HOT BLASTER Work Phone: [phone]-[facility]08-01-2025 19:32-0400 Systolic blood ntvwfmda107 mm[Hg]Kristan Rodriguezki HOT BLASTER Work Phone: [phone]-[facility]07-30-2025 17:17-0400 Body uiclde144.02 cmJaclmargarita Rodriguezki HOT BLASTER Work Phone: [phone]-[facility]07-30-2025 17:17-0400 Body vkmpbxntyny87 [degF]Kristan Rodriguezki HOT BLASTER Work Phone: [phone]-[facility] [place], [place] [address]7-30-2025 17:17-0400 Body qnobcp043.93 kgJaclmargarita Ciersezwski HOT BLASTER Work Phone: [phone]07-30-2025 17:17-0400 Diastolic blood yykkdtmc26 mm[Hg]Kristan Gutiérrezezanderski HOT BLASTER Work Phone: 1(405)[address]07-30-2025 17:17-0400 Heart rate97 /minJaclyn Ciersezwski HOT BLASTER Work Phone: 1(689)[address]07-30-2025 17:17-0400 Respiratory rate20 /minJaclyn Ciersezwski HOT BLASTER Work Phone: 1([phone])[address]07-30-2025 17:17-0400 SaO2% (BldA) [Mass fraction]97 %Kristan Rodriguezki HOT BLASTER Work Phone: 1([phone])[address]07-30-2025 17:17-0400 Systolic blood eopiynai121 mm[Hg]Kristan Rodriguezki HOT BLASTER Work Phone: [phone])[address]07-27-2025 20:53-0400 Body xmaouxstlpm81.2 [degF]Kristan Gutiérrezezwski HOT BLASTER Work Phone: [phone])[address] [place], [place] [address]461207-27-2025 20:53-0400 Diastolic blood bnippilm63 mm[Hg]Kristan Rodriguezki HOT BLASTER Work Phone: [phone])[address]07-27-2025 20:53-0400 Heart rate97 /minJaclyn Ciersezwski HOT BLASTER Work Phone: 1(681)[address]07-27-2025 20:53-0400 Respiratory rate20 /minJaclyn Ciersezwski HOT BLASTER Work Phone: [phone])[address]07-27-2025 20:53-0400 SaO2% (BldA) [Mass fraction]98 %Kristan Gutiérrezezwski HOT BLASTER Work Phone: [facility]07-27-2025 20:53-0400 Systolic blood zzakxthk945 mm[Hg]Kristan Lau HOT BLASTER Work Phone: [facility]07-27-2025 20:51-0400 Body atwwji922.02 cmKristan Judi HOT BLASTER Work Phone: [facility]07-27-2025 20:51-0400 Body .93 kgKristan Turnercatiamoniquealvarez HOT BLASTER Work Phone: [facility]07-23-2025 11:32-0400 Body cmPhoenixcasimiro Marshi HOT BLASTER - WAIVER ANALYST Work Phone: [facility] HospitalTdzkzp07-63-1392 11:32-0400Body mass index (BMI) [Ratio]46.38 kg/q9WxofqgKristan Marshi HOT BLASTER - WAIVER ANALYST Work Phone: [facility] HospitalOdqfwt01-54-3209 11:32-0400Body pzmezhysnjr08 [degF]Kristan Marshi HOT BLASTER - WAIVER ANALYST Work Phone: [facility] CenterPijon Cxfxbp43-91-5146 11:32-0400Body yzddpf292.75 kgPhoenixclmargarita Ciersezjerzyi HOT BLASTER - WAIVER ANALYST Work Phone: [facility] CenterParadigm SolarLziepj11-43-9165 11:32-0400Diastolic blood mm[Hg]Kristan Marshi HOT BLASTER - WAIVER ANALYST Work Phone: Bon [facility]07-23-2025 11:32-0400Heart hytf364 /minPhoenixclmargarita Ciersezski HOT BLASTER - WAIVER ANALYST Work Phone: [facility] CenterParadigm SolarMtmfmf37-27-4688 11:32-0400 Respiratory rate20 /minKristan Ciersezski HOT BLASTER - WAIVER ANALYST Work Phone: [facility] CenterParadigm SolarXxvcox84-86-1210 11:32-2455MjX2% (BldA) [Mass fraction]98 %Kristan Kent HOT BLASTER - WAIVER ANALYST Work Phone: [facility]07-23-2025 11:32-0400Systolic blood oznykzen456 mm[Hg]Kristan Kent HOT BLASTER - WAIVER ANALYST Work Phone: [facility]07-22-2025 19:23-0400Body knlqca742.02 cmKristan Rodriguezki HOT BLASTER Work Phone: [facility]07-22-2025 19:23-0400 Body zuvjzmwveif95.5 [degF]Kristan Lau HOT BLASTER Work Phone: [phone]-[facility]07-22-2025 19:23-0400 Body eenxia329 kgJadevendramargarita Lau HOT BLASTER Work Phone: [phone]-[facility]07-22-2025 19:23-0400 Diastolic blood mm[Hg]Kristan Lau HOT BLASTER Work Phone: [phone]-[facility]07-22-2025 19:23-0400 Heart jppl922 /minKristan Lau HOT BLASTER Work Phone: [phone]-[facility]07-22-2025 19:23-0400 Respiratory rate18 /minKristan Lau HOT BLASTER Work Phone: [facility]07-22-2025 19:23-0400 SaO2% (BldA) [Mass fraction]98 %Kristan Lau HOT BLASTER Work Phone: [facility]07-22-2025 19:23-0400 Systolic blood zuebolul449 mm[Hg]Kristan Lau HOT BLASTER Work Phone: [facility]07-17-2025 13:20-0400 Diastolic blood erpnqzwv639 mm[Hg]Michel Calero DO Work Phone: [facility] HospitalIpkvmn53-96-8731 13:20-0400Heart rate79 /minMichel Calero DO Work Phone: [facility] HospitalToyeex64-66-0806 13:20-0400 Respiratory rate24 /minMichel Calero DO Work Phone: [facility]07-17-2025 13:20-7075SeJ2% (BldA) [Mass fraction]96 %Michel Calero DO Work Phone: [facility]07-17-2025 13:20-0400Systolic blood mdxgxzyx263 mm[Hg]Michel Calero DO Work Phone: [facility]07-17-2025 11:10-0400Body kydcjx519 Sadi Calero DO Work Phone: [facility]07-17-2025 11:10-0400Body mass index (BMI) [Ratio]46.06 kg/m2Michel Calero DO Work Phone: [facility]07-17-2025 11:10-0400Body jnwvijdsqad16.4 [degF]Michel Calero DO Work Phone: [facility]07-17-2025 11:10-0400Body srlizz365.94 kgMichel Calero DO Work Phone: [facility]07-15-2025 19:28-0400Body llylos606.02 cmKristan Lau HOT BLASTER Work Phone: [facility]07-15-2025 19:28-0400 Body elhbimvsbwm56.1 [degF]Kristan Lau HOT BLASTER Work Phone: [facility]07-15-2025 19:28-0400 Body zizmlf481.93 kgKristan Lau APRN Work Phone: [facility]07-15-2025 19:28-0400 Diastolic blood uqgpfhyr22 mm[Hg]Kristan Cicecy HOT BLASTER Work Phone: [facility]07-15-2025 19:28-0400 Heart rate98 /Mariah Lau HOT BLASTER Work Phone: [facility]07-15-2025 19:28-0400 Respiratory rate18 /Mariah Lau HOT BLASTER Work Phone: [facility]07-15-2025 19:28-0400 SaO2% (BldA) [Mass fraction]98 %Kristan Gutiérrezdiandra HOT BLASTER Work Phone: [facility]07-15-2025 19:28-0400 Systolic blood umsrpcks410 mm[Hg]Kristan Judi HOT BLASTER Work Phone: [facility]07-14-2025 12:49-0400 Body yvwsyu654 cmLharika Chin DO Work Phone: [facility]07-14-2025 12:49-0400Body mass index (BMI) [Ratio]46.27 kg/z9Lzvzaz Zannel DO Work Phone: [facility]07-14-2025 12:49-0400Body xozptmgekdv65.4 [degF]Lilia Chin DO Work Phone: [facility]07-14-2025 12:49-0400Body ejeols532.48 kgKsjose l GamingNatural Clean[employer] [place] DO Work Phone: [facility]07-14-2025 12:49-0400Diastolic blood hyxeddoo77 mm[Hg]Lilia Chin DO Work Phone: [facility]07-14-2025 12:49-0400Heart rate93 /minLilia Chin DO Work Phone: bon [facility]07-14-2025 12:49-0400 Respiratory rate20 /minJewelsjose l Elsy DO Work Phone: bon [facility]07-14-2025 12:49-7393FhX0% (BldA) [Mass fraction]95 %Lilia Chin DO Work Phone: bon [facility]07-14-2025 12:49-0400Systolic blood mm[Hg]Lilia Chin DO Work Phone: bon [facility]07-12-2025 19:53-0400Body liiydw283.02 cmKristan Lau HOT BLASTER Work Phone: [facility]07-12-2025 19:53-0400 Body lktwjwjjolg36.3 [degF]Kristan Lau HOT BLASTER Work Phone: [facility]07-12-2025 19:53-0400 Body .93 kgKristan Lau HOT BLASTER Work Phone: [facility]07-12-2025 19:53-0400 Diastolic blood vcbcfioj29 mm[Hg]Kristan Lau HOT BLASTER Work Phone: [facility]07-12-2025 19:53-0400 Heart dgrg969 /minKristan Lau HOT BLASTER Work Phone: [facility]07-12-2025 19:53-0400 Respiratory rate18 /minKristan Lau HOT BLASTER Work Phone: [facility]07-12-2025 19:53-0400 SaO2% (BldA) [Mass fraction]97 %Kristan Lau HOT BLASTER Work Phone: [facility]07-12-2025 19:53-0400 Systolic blood mm[Hg]Kristan Lau HOT BLASTER Work Phone: [facility]07-09-2025 13:23-0400 Diastolic blood uxexxayb72 mm[Hg]Kristanradha Kent HOT BLASTER - WAIVER ANALYST Work Phone: Bon [facility] SurpriseDrybar [facility] HospitalIgezqa22-05-4090 13:23-0400Systolic blood ofylwbjv516 mm[Hg]Kristan Kent HOT BLASTER - WAIVER ANALYST Work Phone: Bon [facility]07-09-2025 13:20-0400Body pwpujo539 cmKristan Kent HOT BLASTER - WAIVER ANALYST Work Phone: Bon [facility]07-09-2025 13:20-0400Body mass index (BMI) [Ratio]46.06 kg/q1Zhtxvs Luis Miguelshaymaldonado HOT BLASTER - WAIVER ANALYST Work Phone: Bon [facility]07-09-2025 13:20-0400Body wlyvtzswdyj53.01 [degF]Kristanradha Kent HOT BLASTER - WAIVER ANALYST Work Phone: Bon [facility]07-09-2025 13:20-0400Body glpguo888.94 kgColinmargarita Maximoi HOT BLASTER - WAIVER ANALYST Work Phone: [facility]07-09-2025 13:20-0400 Respiratory rate20 /minPhoenixcasimiro Maximoi HOT BLASTER - WAIVER ANALYST Work Phone: Bon [facility]07-09-2025 13:20-7924FsF5% (BldA) [Mass fraction]98 %Kristanradha Kent HOT BLASTER - WAIVER ANALYST Work Phone: Bon [facility]07-07-2025 19:55-0400Body .02 cmPhoenixcasimiro Lau HOT BLASTER Work Phone: [facility]07-07-2025 19:55-0400 Body goktccmcscy09.2 [degF]Kristan Lau HOT BLASTER Work Phone: [phone]07-07-2025 19:55-0400 Body amptkq750.3 kgJaclyn Ciersezwski HOT BLASTER Work Phone: 1(845)687-[address] [place], [place] 6040207-07-2025 19:55-0400 Diastolic blood anefgsea24 mm[Hg]Kristan Ciersezwski HOT BLASTER Work Phone: 1(956)372-[address] [place], [place] 6040207-07-2025 19:55-0400 Heart zpzs537 /minJaclyn Ciersezwski HOT BLASTER Work Phone: 1(386)[address]07-07-2025 19:55-0400 Respiratory rate18 /minJaclyn Ciersezwski HOT BLASTER Work Phone: 1(931)171-[address] [place], [place] 6040207-07-2025 19:55-0400 SaO2% (BldA) [Mass fraction]99 %Kristan Cicatiaezanderski HOT BLASTER Work Phone: 1(788)808-[address] [place], [place] 6040207-07-2025 19:55-0400 Systolic blood apmloiqj04 mm[Hg]Kristan Cicatiaezwski HOT BLASTER Work Phone: 1([phone])[address]07-02-2025 19:40-0400 Body nxvicb895.02 cmJaclyn Ciersezwski HOT BLASTER Work Phone: 1(309)[address]07-02-2025 19:40-0400 Body pflykrdiaoz28.2 [degF]Kristan Ciersezwski HOT BLASTER Work Phone: 1([phone])[address]07-02-2025 19:40-0400 Body tgrvic305.93 kgJaclyn Ciersezwski HOT BLASTER Work Phone: [phone]-[facility]07-02-2025 19:40-0400 Diastolic blood njftzujn02 mm[Hg]Kristan Ciersezwski HOT BLASTER Work Phone: 1([phone]-[facility]07-02-2025 19:40-0400 Heart bqso441 /minJaclyn Ciersezwski HOT BLASTER Work Phone: [facility]07-02-2025 19:40-0400 Respiratory rate22 /Carycasimiro Lau HOT BLASTER Work Phone: [facility]07-02-2025 19:40-0400 SaO2% (BldA) [Mass fraction]100 %Kristan Judi HOT BLASTER Work Phone: [facility]07-02-2025 19:40-0400 Systolic blood wbciwvcz238 mm[Hg]Kristanradha Lau HOT BLASTER Work Phone: [facility]06-25-2025 18:07-0400 Body mass index (BMI) [Ratio]46.41 kg/y5Zsfbtlcasimiro Marshi HOT BLASTER - WAIVER ANALYST Work Phone: [facility] Afzfbo44-74-9460 18:07-0400Body nrretyygvwc40.9 [degF]Kristan Marshi HOT BLASTER - WAIVER ANALYST Work Phone: [facility]06-25-2025 18:07-0400Body uhvygi497.84 kgColinmargarita Turnerersezski HOT BLASTER - WAIVER ANALYST Work Phone: Bon [facility]06-25-2025 18:07-0400Diastolic blood mm[Hg]Kristan Marshi HOT BLASTER - WAIVER ANALYST Work Phone: Bon [facility]06-25-2025 18:07-0400Heart rate82 /minPhoenixclmargarita Ciersezski HOT BLASTER - WAIVER ANALYST Work Phone: Bon [facility]06-25-2025 18:07-0400 Respiratory rate18 /minKristan Ciersezski HOT BLASTER - WAIVER ANALYST Work Phone: Bon [facility]06-25-2025 18:07-0376QsW2% (BldA) [Mass fraction]98 %Kristan Marshi HOT BLASTER - WAIVER ANALYST Work Phone: [facility]06-25-2025 18:07-0400Systolic blood vrcdcovj233 mm[Hg]Kristan Kent HOT BLASTER - WAIVER ANALYST Work Phone: [facility]06-24-2025 19:30-0400Diastolic blood ugvakvgb119 mm[Hg]Kristan Lau HOT BLASTER Work Phone: [facility]06-24-2025 19:30-0400 Systolic blood hrtzsvwo729 mm[Hg]Kristan Lau HOT BLASTER Work Phone: 1([phone]06-24-2025 19:26-0400 Body qsbmia877.02 cmKristan Lau HOT BLASTER Work Phone: 1([phone])[address]06-24-2025 19:26-0400 Body lobbppxwdnx43.9 [degF]Kristan Lau HOT BLASTER Work Phone: 1(851)[address]06-24-2025 19:26-0400 Body srcyiy613.7 kgKristan Lau HOT BLASTER Work Phone: 1(608)836-[address] [place], [place] 6040206-24-2025 19:26-0400 Heart nphf209 /minKristan Lau HOT BLASTER Work Phone: 1(474)[address]06-24-2025 19:26-0400 Respiratory rate20 /minKristan Lau HOT BLASTER Work Phone: 1(849)802-[address] [place], [place] 6040206-24-2025 19:26-0400 SaO2% (BldA) [Mass fraction]99 %Kristan Lau HOT BLASTER Work Phone: [phone]-[facility]06-23-2025 17:56-0400 SaO2% (BldA) [Mass fraction]98 %Kristan Kent HOT BLASTER - WAIVER ANALYST Work Phone: [facility]06-23-2025 17:45-0400Heart rate80 /minJaclyn Ciersezski HOT BLASTER - WAIVER ANALYST Work Phone: [facility] HospitalLmrgxh75-27-8030 16:57-0400Body cmKristan Kent HOT BLASTER - WAIVER ANALYST Work Phone: [facility] HospitalFrirht38-33-5973 16:57-0400Body mass index (BMI) [Ratio]45.17 kg/n8FpqbbgKristan Marshi HOT BLASTER - WAIVER ANALYST Work Phone: [facility] HospitalMywfqb14-86-6043 16:57-0400Body zevorkvntyj93.49 [degF]Kristan Kent HOT BLASTER - WAIVER ANALYST Work Phone: [facility] HospitalKogdcu05-15-5512 16:57-0400Body nreoye287.67 kgKristan Marshi HOT BLASTER - WAIVER ANALYST Work Phone: [facility] HospitalZodrsm94-25-6127 16:57-0400Diastolic blood mm[Hg]Kristan Marshi HOT BLASTER - WAIVER ANALYST Work Phone: [facility] HospitalXgnbad97-40-2110 16:57-0400 Respiratory rate18 /Mariah Kent HOT BLASTER - WAIVER ANALYST Work Phone: [facility] HospitalKcwbfb04-96-3918 16:57-0400Systolic blood pwpttmux828 mm[Hg]Kristan Marshi HOT BLASTER - WAIVER ANALYST Work Phone: [facility] HospitalIssoef80-74-0582 20:45-0400Diastolic blood yxryjlpc986 mm[Hg]Mik Jenkins MD Work Phone: bon [facility]06-22-2025 20:45-2326IgT7% (BldA) [Mass fraction]98 %Mik Jenkins MD Work Phone: [facility]06-22-2025 20:45-0400Systolic blood atsfobkv297 mm[Hg]Mik Jenkins MD Work Phone: Bon [facility]06-22-2025 19:25-0400Body krbonf648 Jossue Jenkins MD Work Phone: [phone] [facility]06-22-2025 19:25-0400Body mass index (BMI) [Ratio]47.72 kg/m2Mik Jenkins MD Work Phone: [phone] [facility]06-22-2025 19:25-0400Body fesyqqmcoff77.1 [degF]Mik Jenkins MD Work Phone: [phone] [facility]06-22-2025 19:25-0400Body .2 kgMik Jenkins MD Work Phone: Bon [facility]06-22-2025 19:25-0400Heart rate97 /minMik Jenkins MD Work Phone: Bon [facility]06-22-2025 19:25-0400 Respiratory rate18 /Marc Jenkins MD Work Phone: Bon [facility]06-21-2025 19:07-0400Body ggmxoi714.02 cmKristan Lau APRN Work Phone: [facility]06-21-2025 19:07-0400 Body cgzxwsugwbu35.1 [degF]Kristna Lau APRN Work Phone: [facility]06-21-2025 19:07-0400 Body emqvcl780 kgKristan Lau APRN Work Phone: [facility]06-21-2025 19:07-0400 Diastolic blood egjdzsyz84 mm[Hg]Kristan Lau APRN Work Phone: [facility]06-21-2025 19:07-0400 Heart wqzv964 /Mariah Lau APRN Work Phone: [facility]06-21-2025 19:07-0400 Respiratory rate18 /Mariah Zaldivarandersinna HOT BLASTER Work Phone: [facility]06-21-2025 19:07-0400 SaO2% (BldA) [Mass fraction]99 %Kristan Lau HOT BLASTER Work Phone: [facility]06-21-2025 19:07-0400 Systolic blood iaygsheq726 mm[Hg]Kristan Turnercecy HOT BLASTER Work Phone: [facility]06-14-2025 23:39-0400 Heart rate95 /Mariah Zenjerzyi HOT BLASTER - WAIVER ANALYST Work Phone: [facility] CenterParadigm SolarLusqgr25-23-6387 17:54-0400Body mass index (BMI) [Ratio]46.69 kg/r5LmcsgxKristan Marshi HOT BLASTER - WAIVER ANALYST Work Phone: Bon [facility]06-14-2025 17:54-0400Body eihmqmiyzas08.2 [degF]Kristan Yuefrankyi HOT BLASTER - WAIVER ANALYST Work Phone: [facility]06-14-2025 17:54-0400Body xmbuwo384.57 kgKristan Turnerersshayi HOT BLASTER - WAIVER ANALYST Work Phone: [facility]06-14-2025 17:54-0400 Respiratory rate22 /minKristan Turnerersezski HOT BLASTER - WAIVER ANALYST Work Phone: Bon [facility]06-14-2025 17:54-9473KeN9% (BldA) [Mass fraction]99 %Kristan Marshi HOT BLASTER - WAIVER ANALYST Work Phone: [facility]06-10-2025 14:53-0400Body cmColinmargarita Yueersezski HOT BLASTER - WAIVER ANALYST Work Phone: [facility]velstay06-10-2025 14:53-0400Body mass index (BMI) [Ratio]46.7 kg/u0WnkiiuKristan Marshi HOT BLASTER - WAIVER ANALYST Work Phone: [id number] 14:53-0400Body vwdhvxdcmwi09.3 [degF]Kristan Marshi HOT BLASTER - WAIVER ANALYST Work Phone: [facility] [id number] 14:53-0400Body aobili987.59 kgKristan Marshi HOT BLASTER - WAIVER ANALYST Work Phone: [facility] [id number] 14:53-0400Diastolic blood ekezissf95 mm[Hg]Kristan Marshi HOT BLASTER - WAIVER ANALYST Work Phone: [facility] [id number] 14:53-0400Heart ngtl845 /minPhoenixclmargarita Ciersezski HOT BLASTER - WAIVER ANALYST Work Phone: [facility] [facility] HospitalZjpdzn25-50-2557 14:53-0400 Respiratory rate20 /minKristan Ciersezski HOT BLASTER - WAIVER ANALYST Work Phone: Bon [facility] HospitalFkfnxh01-47-1649 14:53-0721VeO2% (BldA) [Mass fraction]99 %Kristan Marshi HOT BLASTER - WAIVER ANALYST Work Phone: Bon [facility] HospitalCybpft53-03-1425 14:53-0400Systolic blood mm[Hg]Kristan Marshi HOT BLASTER - WAIVER ANALYST Work Phone: Bon [facility]06-09-2025 20:27-0400Body omhebr917.02 cmKristan Turnerterryandersinna HOT BLASTER Work Phone: [facility]06-09-2025 20:27-0400 Body .5 [degF]Kristanradha Lau HOT BLASTER Work Phone: [facility]06-09-2025 20:27-0400 Body emrijq148.7 kgKristan Lau HOT BLASTER Work Phone: [facility]06-09-2025 20:27-0400 Diastolic blood ggwpiofp80 mm[Hg]Kristan Lau HOT BLASTER Work Phone: [facility]06-09-2025 20:27-0400 Heart rate84 /batoolKristan Lau HOT BLASTER Work Phone: [facility]06-09-2025 20:27-0400 Respiratory rate20 /batoolKristan Lau HOT BLASTER Work Phone: [facility]06-09-2025 20:27-0400 SaO2% (BldA) [Mass fraction]98 %Kristan Lau HOT BLASTER Work Phone: [facility]06-09-2025 20:27-0400 Systolic blood mm[Hg]Kristan Lau HOT BLASTER Work Phone: [facility]06-08-2025 19:06-0400 Body ebisps450 cmPhoenixcasimiro Marshi HOT BLASTER - WAIVER ANALYST Work Phone: Bon [facility] CenterParadigm SolarIqfjdc74-73-9505 19:06-0400Body mass index (BMI) [Ratio]44.29 kg/b6GyyxotKristan Marshi HOT BLASTER - WAIVER ANALYST Work Phone: Bon [facility]06-08-2025 19:06-0400Body ahozkmjoffq74.81 [degF]Kristan Marshi HOT BLASTER - WAIVER ANALYST Work Phone: Bon [facility]06-08-2025 19:06-0400Body .4 kgKristan Marshi HOT BLASTER - WAIVER ANALYST Work Phone: Bon [facility]06-08-2025 19:06-0400Diastolic blood qpsxqonj304 mm[Hg]Kristan Kent HOT BLASTER - WAIVER ANALYST Work Phone: Bon [facility] HospitalRgmjfk21-29-6577 19:06-0400Heart ghbh224 /Mariah Kent HOT BLASTER - WAIVER ANALYST Work Phone: Bon [facility]06-08-2025 19:06-0400 Respiratory rate18 /minKristan Kent HOT BLASTER - WAIVER ANALYST Work Phone: Bon [facility]06-08-2025 19:06-8281JkT4% (BldA) [Mass fraction]99 %Kristan Kent HOT BLASTER - WAIVER ANALYST Work Phone: Bon [facility] HospitalJthnnr82-09-0269 19:06-0400Systolic blood fswxroae475 mm[Hg]Kristan Kent HOT BLASTER - WAIVER ANALYST Work Phone: Bon [facility] HospitalEgwxvd48-65-0515 03:06-0400Diastolic blood hdkbgieh57 mm[Hg]Flex Malave MD Work Phone: [phone]-[facility]06-07-2025 03:06-0400 Heart gfdq398 /Tessa Malave MD Work Phone: [phone]-[facility]06-07-2025 03:06-0400 Respiratory rate20 /Tessa Malave MD Work Phone: [phone]-[facility]06-07-2025 03:06-0400 SaO2% (BldA) [Mass fraction]98 %Flex Malave MD Work Phone: [phone]-[facility]06-07-2025 03:06-0400 Systolic blood mm[Hg]Flex Malave MD Work Phone: [phone] [place], [place] [address]06-06-2025 20:39-0400 Body Felice Malave MD Work Phone: [phone]-[facility]06-06-2025 20:39-0400 Body mass index (BMI) [Ratio]47.47 kg/m2Flex Malave MD Work Phone: [facility]06-06-2025 20:39-0400 Body vvdnbpicroi59.7 [degF]Flex Malave MD Work Phone: [facility]06-06-2025 20:39-0400 Body ypoaqj830.56 kgFlex Malave MD Work Phone: [facility]06-05-2025 22:20-0400 Diastolic blood lspynkpk76 mm[Hg]PHYSICIAN NO [facility]06-05-2025 22:20-0400Heart rate98 /minPHYSICIAN [facility]06-05-2025 22:20-0400Respiratory rate20 /minPHYSICIAN [facility]06-05-2025 22:20-3289IiY8% (BldA) [Mass fraction]97 %PHYSICIAN NO [facility]06-05-2025 22:20-0400Systolic blood xeqwdryw361 mm[Hg]PHYSICIAN [facility]06-05-2025 20:03-0400Body szlomq881.02 cmPHYSICIAN [facility]06-05-2025 20:03-0400Body ebzqnhvyxnz12.3 [degF]PHYSICIAN NO [facility]06-05-2025 20:03-0400 Body .9 kgPHYSICIAN [facility] 08-26-2024 15:32-0400Body cmKristan Kent APRN - WAIVER ANALYST Work Phone: bon [facility] HospitalKejmjh33-29-6960 15:32-0400Body mass index (BMI) [Ratio]47.08 kg/c3JfeqgsKristan Kent APRN - WAIVER ANALYST Work Phone: bon [facility] HospitalYlciwx85-96-5764 15:32-0400Body wkpffzbbmip58.4 [degF]Kristan Kent APRN - WAIVER ANALYST Work Phone: bon [facility]06-04-2025 15:32-0400Body .57 kgJaclyn Ciersezski HOT BLASTER - WAIVER ANALYST Work Phone: Bon [facility]06-04-2025 15:32-0400Diastolic blood hvitrrng26 mm[Hg]Kristanradha Zaldivarski HOT BLASTER - WAIVER ANALYST Work Phone: Bon [facility]06-04-2025 15:32-0400Heart gdhy349 /minJaclyn Ciersezski HOT BLASTER - WAIVER ANALYST Work Phone: Bon [facility]06-04-2025 15:32-0400 Respiratory rate18 /minJaclyn Ciersezski HOT BLASTER - WAIVER ANALYST Work Phone: Bon [facility]06-04-2025 15:32-5601FyP1% (BldA) [Mass fraction]100 %Kristan Cicatiaezski HOT BLASTER - WAIVER ANALYST Work Phone: Bon [facility]06-04-2025 15:32-0400Systolic blood odbbtykg059 mm[Hg]Kristan Cicatiaezski HOT BLASTER - WAIVER ANALYST Work Phone: Bon [facility]05-30-2025 18:45-0400Diastolic blood mm[Hg]Kristan Cicatiaezski HOT BLASTER - WAIVER ANALYST Work Phone: Bon [facility]05-30-2025 18:45-0400Heart rate71 /minJaclyn Ciersezski HOT BLASTER - WAIVER ANALYST Work Phone: Bon [facility]05-30-2025 18:45-0400 Respiratory rate18 /minJaclyn Ciersezski HOT BLASTER - WAIVER ANALYST Work Phone: Bon [facility]05-30-2025 18:45-9562FrF4% (BldA) [Mass fraction]98 %Kristan Gutiérrezezski HOT BLASTER - WAIVER ANALYST Work Phone: Bon [facility]05-30-2025 18:45-0400Systolic blood pieszxfi061 mm[Hg]Kristan Marshi HOT BLASTER - WAIVER ANALYST Work Phone: Bon [employer] TechnologiesMartinsville Memorial HospitalGfdkyz48-85-6702 14:15-0400Body .9 [degF]Kristan Marshi HOT BLASTER - WAIVER ANALYST Work Phone: Bon [facility] HospitalNrixdv27-32-5259 12:49-0400Body mass index (BMI) [Ratio]48.18 kg/c9Orfvva Ciersezski HOT BLASTER - WAIVER ANALYST Work Phone: Bon [facility] HospitalGplpqo69-96-2374 12:49-0400Body bxelcz634.38 kgPhoenixclmargarita Ciersezski HOT BLASTER - WAIVER ANALYST Work Phone: Bon [facility] CenterPijon Pyqhct51-81-3294 12:37-0400Body cmPhoenixclyn Ciersezski HOT BLASTER - WAIVER ANALYST Work Phone: Bon [facility] HospitalDegayi59-94-8804 17:53-0400Body cmJaclyn Ciersezski HOT BLASTER - WAIVER ANALYST Work Phone: Bon [facility] CenterPijon Bpdxro51-66-4455 17:53-0400Body mass index (BMI) [Ratio]46.94 kg/n3Gxwuox Ciersezski HOT BLASTER - WAIVER ANALYST Work Phone: Bon [facility] CenterPijon Xwmxzu42-72-8535 17:53-0400Body wtymavwdclr41.4 [degF]Kristan Marshi HOT BLASTER - WAIVER ANALYST Work Phone: Bon [facility] HospitalDznzdr64-49-5122 17:53-0400Body wepjht593.2 kgPhoenixclmargarita Ciersezski HOT BLASTER - WAIVER ANALYST Work Phone: Bon [facility] CenterPijon Bzafan86-22-4865 17:53-0400Diastolic blood mm[Hg]Kristan Zenski HOT BLASTER - WAIVER ANALYST Work Phone: Bon [facility] CenterParadigm SolarAnvtbb03-17-4701 17:53-0400Heart rate96 /minJaclmargarita Ciersezski HOT BLASTER - WAIVER ANALYST Work Phone: Bon [facility]05-29-2025 17:53-0400 Respiratory rate18 /minPhoenixclmargarita Ciersezski HOT BLASTER - WAIVER ANALYST Work Phone: Bon SecDry[facility] CenterPijon Yfeopz22-75-9646 17:53-4218BnI3% (BldA) [Mass fraction]100 %Kristan Zaldivarski HOT BLASTER - WAIVER ANALYST Work Phone: Bon [facility] CenterPijon Noigiy42-62-8956 17:53-0400Systolic blood ymngfgpk831 mm[Hg]Kristan Cicatiaezski HOT BLASTER - WAIVER ANALYST Work Phone: Bon [facility] CenterPijon Cshiws41-79-2858 15:42-0400 Respiratory rate18 /minJaclyn Ciersezski HOT BLASTER - WAIVER ANALYST Work Phone: Bon [facility] CenterPijon Ijhgjd65-86-4383 15:15-0400Body lsgyepaosmi49.2 [degF]Kristan Ciersezski HOT BLASTER - WAIVER ANALYST Work Phone: Bon [facility] CenterPijon Fokfwy61-70-5509 15:15-0400Diastolic blood orynyoad64 mm[Hg]Kristanric Gutiérrezezski HOT BLASTER - WAIVER ANALYST Work Phone: Bon [facility] CenterPijon Civwkh93-86-2480 15:15-0400Heart rate98 /minJaclyn Ciersezski HOT BLASTER - WAIVER ANALYST Work Phone: Bon [facility] CenterPijon Fsptxq50-73-3519 15:15-5462VlA4% (BldA) [Mass fraction]100 %Kristan Cicatiaezski HOT BLASTER - WAIVER ANALYST Work Phone: Bon [facility] CenterP[facility]on Oisbel12-68-7808 15:15-0400Systolic blood hkgtmkfe565 mm[Hg]Kristan Cicatiaezski HOT BLASTER - WAIVER ANALYST Work Phone: Bon [facility]05-26-2025 08:38-0400Body ctroxaiygmc51.06 [degF][facility]05-26-2025 08:38-0400Diastolic blood opllikdl26 mm[Hg][facility]05-26-2025 08:38-0400Heart mveq021 /min[facility]05-26-2025 08:38-0400Respiratory rate18 /min[facility]05-26-2025 08:38-1297MgF3% (BldA) [Mass fraction]100 % [facility]05-26-2025 08:38-0400Systolic blood aeojdcej015 mm[Hg][facility]05-25-2025 20:13-0400Body jcaewyuxalp22.1 [degF]PHYSICIAN [facility]05-25-2025 20:13-0400Diastolic blood pepfflzr40 mm[Hg]PHYSICIAN [facility]05-25-2025 20:13-0400Heart rate65 /min PHYSICIAN [facility]05-25-2025 20:13-0400 Respiratory rate16 /minPHYSICIAN [facility] 08-16-2024 20:13-5218ViY1% (BldA) [Mass fraction]100 %PHYSICIAN [facility]05-25-2025 20:13-0400Systolic blood mm[Hg]PHYSICIAN [facility]05-25-2025 20:04-0400 Body tersfq748.02 cmPHYSICIAN [facility] 08-16-2024 20:04-0400Body ylqryt522.39 kgPHYSICIAN [facility]05-22-2025 20:50-0400Body .02 cmPHYSICIAN [facility]05-22-2025 20:50-0400Body fqualcybzil93.8 [degF]PHYSICIAN [facility]05-22-2025 20:50-0400 Body rpcisc478.4 kgPHYSICIAN NO [facility] 08-13-2024 20:50-0400Diastolic blood krugzjbu96 mm[Hg]PHYSICIAN NO [facility]05-22-2025 20:50-0400Heart gtbp650 /min PHYSICIAN NO [facility]05-22-2025 20:50-0400 Respiratory rate18 /minPHYSICIAN NO [facility] 08-13-2024 20:50-3722TsT1% (BldA) [Mass fraction]100 %PHYSICIAN NO [facility]05-22-2025 20:50-0400Systolic blood qlrowjcf624 mm[Hg]PHYSICIAN NO [facility]04-28-2025 21:00-0400 Respiratory rate20 /Lynette Tubbs [address]04-28-2025 21:00-0400Heart rate94 /Lynette Tubbs [address] [place], [place] [address]04-28-2025 21:00-2782YoS4% (BldA) [Mass fraction]94 %Nikhil Tubbs [address] [place], [place] [address]04-28-2025 21:00-0400 Diastolic blood vcokjcxa90 mm[Hg]Nikhil Tubbs [address] [place], [place] [address]04-28-2025 21:00-0400Mean blood syeeclge03 mm[Hg]Nikhil Tubbs [address] [place], [place] [address]04-28-2025 21:00-0400 Systolic blood cqmujrbd693 mm[Hg]Nikhil Tubbs [address] [place], [place] [address]04-28-2025 20:00-3841RrN5% (BldA) [Mass fraction]95 %Nikhil Tubbs [address] [place], [place] [address]04-28-2025 20:00-0400 Respiratory rate12 /Lynette Tubbs [address] [place], [place] [address]04-28-2025 20:00-0400Heart rate94 /Lynette Tubbs [address] [place], [place] [address]04-28-2025 20:00-0400 Diastolic blood vfrzijrb89 mm[Hg]Nikhil Tubbs [address] [place], [place] [address]04-28-2025 20:00-0400Mean blood vhqbruxh19 mm[Hg]Nikhil Tubbs [address] [place], [place] [address]04-28-2025 20:00-0400 Systolic blood tigrgnic268 mm[Hg]Nikhil Tubbs [address] [place], [place] 4822604-28-2025 19:30-0400Heart rate92 /Lynette Tubbs [address] [place], [place] 4822604-28-2025 19:30-9453RbT1% (BldA) [Mass fraction]96 %Nikhil Tubbs [address] [place], [place] [address]04-28-2025 19:30-0400 Respiratory rate14 /Lynette Tubbs [address] [place], [place] [address]88[address]04-28-2025 19:30-0400Blood Pressure LocationNikhil Tubbs [address] [place], [place] [address]04-28-2025 19:30-0400 Diastolic blood uccwoesc72 mm[Hg]Nikhil Tubbs [address] [place], [place] [address]04-28-2025 19:30-0400Mean blood ouidfppn78 mm[Hg]Nikhil Tubbs [address] [place], [place] [address]04-28-2025 19:30-0400 Systolic blood jcxswzra53 mm[Hg]Nikhil Tubbs [address] [place], [place] [address]04-28-2025 19:00-0400Body exjszqsnfuh24.52 [degF]Nikhil Tubbs [address] [place], [place] [address]04-28-2025 19:00-0400Heart pezc261 /minNikhil Tubbs [facility]04-28-2025 19:00-0400 Respiratory rate22 /minNikhil Tubbs [facility]04-21-2025 19:15-0400Body czfedogyhrh89.7 [degF]PHYSICIAN NO [facility] 07-13-2024 19:15-0400Diastolic blood fojtoryd047 mm[Hg]PHYSICIAN NO [facility]04-21-2025 19:15-0400Heart jqmz394 /min PHYSICIAN NO [facility]04-21-2025 19:15-0400 Respiratory rate22 /minPHYSICIAN [facility] 07-13-2024 19:15-0142SsM0% (BldA) [Mass fraction]99 %PHYSICIAN [facility]04-21-2025 19:15-0400Systolic blood mm[Hg]PHYSICIAN NO [facility]04-21-2025 19:14-0400 Body .02 cmPHYSICIAN [facility] 07-13-2024 19:14-0400Body ehcghn988 kgPHYSICIAN [facility]04-20-2025 13:27-0400Body vwgpaltcafq52.06 [degF]Nikhil Tubbs [facility]04-20-2025 13:27-0400 Diastolic blood jwegdciq66 mm[Hg]Nikhil Tubbs [facility]04-20-2025 13:27-0400Heart rate89 /Lynette Tubbs [facility]04-20-2025 13:27-0400 Respiratory rate20 /minNikhil Tubbs [facility]04-20-2025 13:27-8799HjX5% (BldA) [Mass fraction]96 %Nikhil Tubbs [facility]04-20-2025 13:27-0400 Systolic blood otgnqwos675 mm[Hg]Nikhil Tubbs [facility]04-20-2025 00:57-0400Heart rate78 /minPHYSICIAN [facility]04-20-2025 00:57-0400Respiratory rate20 /minPHYSICIAN [facility]04-20-2025 00:57-3454WbD7% (BldA) [Mass fraction]99 %PHYSICIAN NO [facility]04-19-2025 20:57-0400Body qtyizt891.02 cm PHYSICIAN NO [facility]04-19-2025 20:57-0400Body gswrizdabtp14.9 [degF]PHYSICIAN NO [facility] 07-11-2024 20:57-0400Body itmtpv309.5 kgPHYSICIAN [facility]04-19-2025 20:57-0400Diastolic blood pdaypmam04 mm[Hg]PHYSICIAN NO [facility]04-19-2025 20:57-0400Systolic blood hvydyuzf069 mm[Hg]PHYSICIAN NO [facility]04-18-2025 20:35-0400Body .02 cmPHYSICIAN [facility]04-18-2025 20:35-0400Body .3 kgPHYSICIAN [facility]04-18-2025 20:32-0400Body cxwhsbawfqi16.8 [degF]PHYSICIAN NO [facility]04-18-2025 20:32-0400Diastolic blood pyvjkmys66 mm[Hg]PHYSICIAN NO [facility]04-18-2025 20:32-0400Heart rate98 /minPHYSICIAN [facility] 07-10-2024 20:32-0400Respiratory rate18 /minPHYSICIAN [facility]04-18-2025 20:32-0685YuK0% (BldA) [Mass fraction]97 % PHYSICIAN NO [facility] Qituul82-07-9398 20:32-0400 Systolic blood trcsrfga620 mm[Hg]PHYSICIAN [facility]04-16-2025 16:40-0400Body boodcs770 cmAntjudy Salas MD Work Phone: 1(972)002-[address] [place], [place] 1955004-16-2025 16:40-0400Body mass index (BMI) [Ratio]46.06 kg/y1JqgykoiLynn Salas MD Work Phone: 1(370)[address]04-16-2025 16:40-0400Body emfbtwexjan93.8 [degF]Lynn Salas MD Work Phone: [phone]04-16-2025 16:40-0400Body weight 117.94 kgLynn Salas MD Work Phone: 1(548)64076 [address]04-16-2025 16:40-0400Diastolic blood frwxrkji58 mm[Hg]Lynn Salas MD Work Phone: 1([phone])[address]04-16-2025 16:40-0400Heart rate96 /minLynn Salas MD Work Phone: 1(136)509[address]04-16-2025 16:40-0400Respiratory rate18 /Ariel Salas MD Work Phone: 1(656)527[address]04-16-2025 16:40-2200CuB5% (BldA) [Mass fraction]96 %Lynn Salas MD Work Phone: 1(389)[address]04-16-2025 16:40-0400Systolic blood mm[Hg]Lynn Salas MD Work Phone: [phone]04-15-2025 19:41-0400Body height 160.02 cmPHYSICIAN [facility]04-15-2025 19:41-0400Body uyedqa594.74 kgPHYSICIAN [facility]04-15-2025 19:40-0400Body lumbsozchhf04.9 [degF]PHYSICIAN NO [facility]04-15-2025 19:40-0400Diastolic blood nphacujq87 mm[Hg]PHYSICIAN NO [facility]04-15-2025 19:40-0400 Heart fjik963 /minPHYSICIAN [facility]04-15-2025 19:40-0400Respiratory rate16 /minPHYSICIAN [facility]04-15-2025 19:40-9763IyL8% (BldA) [Mass fraction]98 %PHYSICIAN NO [facility]04-15-2025 19:40-0400Systolic blood rivvhjyr407 mm[Hg]PHYSICIAN NO [facility]04-14-2025 22:24-0400 Diastolic blood bmhbfmus23 mm[Hg]Flex Malave MD Work Phone: [phone]04-14-2025 22:24-0400 Heart gunw136 /minFlex Malave MD Work Phone: [phone]04-14-2025 22:24-0400 Respiratory rate18 /Tessa Malave MD Work Phone: [phone]04-14-2025 22:24-0400 SaO2% (BldA) [Mass fraction]96 %Flex Malave MD Work Phone: [phone]04-14-2025 22:24-0400 Systolic blood shrjwwvy285 mm[Hg]Flex Malave MD Work Phone: [phone]04-14-2025 19:14-0400 Body fohaeo210 Felice Malave MD Work Phone: [phone]04-14-2025 19:14-0400 Body mass index (BMI) [Ratio]47.47 kg/m2Flex Malave MD Work Phone: [phone]04-14-2025 19:14-0400 Body hbyzypszoqn78.01 [degF]Flex Malave MD Work Phone: [facility]04-14-2025 19:14-0400 Body .56 kgAdam Sim SOTO Work Phone: [facility]04-13-2025 19:16-0400 Body mjexfmtvlpq73.06 [degF]Nikhil Arley [facility]04-13-2025 19:16-0400 Diastolic blood alritdzm95 mm[Hg]Nikhil Arley [facility]04-13-2025 19:16-0400Heart snol817 /batoolNikhil Tubbs [address] [place], [place] [address]04-13-2025 19:16-0400 Respiratory rate20 /batoolNikhil Tubbs [address]04-13-2025 19:16-8554XpT4% (BldA) [Mass fraction]96 %Nikhil Tubbs [facility]04-13-2025 19:16-0400 Systolic blood pttiyuqc859 mm[Hg]Nikhil Tubbs [address] [place], [place] [address]04-12-2025 20:56-0400Body mddonp576.02 cmPHYSICIAN [facility]04-12-2025 20:56-0400Body nrkxbcnvakr24.1 [degF]PHYSICIAN [facility]04-12-2025 20:56-0400Body birjmr119.56 kgPHYSICIAN [facility]04-12-2025 20:56-0400Diastolic blood tjrffujm30 mm[Hg]PHYSICIAN [facility]04-12-2025 20:56-0400 Heart eybe216 /minPHYSICIAN [facility]04-12-2025 20:56-0400Respiratory rate18 /minPHYSICIAN [facility]04-12-2025 20:56-3516JzN7% (BldA) [Mass fraction]95 %PHYSICIAN [facility]04-12-2025 20:56-0400Systolic blood jtkiizdo263 mm[Hg]PHYSICIAN NO [facility]04-11-2025 21:06-0400 Diastolic blood juskjhvq27 mm[Hg][facility] 07-03-2024 21:06-0400Heart rate94 /[facility]04-11-2025 21:06-0400Respiratory rate18 /[facility]04-11-2025 21:06-4917KjU4% (BldA) [Mass fraction]97 %[facility]04-11-2025 21:06-0400Systolic blood pressure 109 mm[Hg][facility]04-11-2025 19:55-0400Body .24 [degF][facility]04-11-2025 19:55-0400Diastolic blood ijjyeucu46 mm[Hg][facility]04-11-2025 19:55-0400Heart rate97 /[facility]04-11-2025 19:55-0400Respiratory rate16 /[facility]04-11-2025 19:55-6664EwV0% (BldA) [Mass fraction]98 %[facility]04-11-2025 19:55-0400Systolic blood pressure 133 mm[Hg][facility]04-07-2025 19:52-0400Body .02 cmPHYSICIAN [facility]04-07-2025 19:52-0400Body quubpzgnltg54.8 [degF]PHYSICIAN [facility]04-07-2025 19:52-0400Body .56 kgPHYSICIAN [facility]04-07-2025 19:52-0400Diastolic blood mm[Hg]PHYSICIAN NO [facility]04-07-2025 19:52-0400 Heart pbwe361 /minPHYSICIAN NO [facility]04-07-2025 19:52-0400Respiratory rate16 /minPHYSICIAN [facility]04-07-2025 19:52-7095CiS4% (BldA) [Mass fraction]99 %PHYSICIAN NO [facility]04-07-2025 19:52-0400Systolic blood udhpuuyi371 mm[Hg]PHYSICIAN NO [facility]04-05-2025 20:08-0400 Body dsoxjo635 cmSelise Dyer MD Work Phone: [phone]04-05-2025 20:08-0400 Body mass index (BMI) [Ratio]47.47 kg/c2CxdjtqNehemiah Dyer MD Work Phone: 1([phone])[address]04-05-2025 20:08-0400 Body vxxoqzxdyqn01.11 [degF]Nehemiah Dyer MD Work Phone: 1([phone])[address]04-05-2025 20:08-0400 Body ehokso696.56 kgNehemiah Dyer MD Work Phone: [phone])[address]04-05-2025 20:08-0400 Diastolic blood ajjqqseg91 mm[Hg]Nehemiah Dyer MD Work Phone: 1(461)955-[address] [place], [place] [address]04-05-2025 20:08-0400 Heart rate99 /Bianka Dyer MD Work Phone: 1(466)[address] [place], [place] [address]04-05-2025 20:08-0400 Respiratory rate18 /Bianka Dyer MD Work Phone: 1(455)[address]04-05-2025 20:08-0400 SaO2% (BldA) [Mass fraction]97 %Nehemiah Dyer MD Work Phone: 1(067)538-[address] [place], [place] [address]2404-05-2025 20:08-0400 Systolic blood immppdfe867 mm[Hg]Nehemiah Dyer MD Work Phone: [facility]04-04-2025 21:00-0400 Body eoxeda911.02 cmPHYSICIAN [facility] 06-26-2024 21:00-0400Body hysoewwjqnd43.2 [degF]PHYSICIAN NO [facility]04-04-2025 21:00-0400Body heomnd211.7 kgPHYSICIAN [facility]04-04-2025 21:00-0400Diastolic blood exswwiak35 mm[Hg]PHYSICIAN NO [facility]04-04-2025 21:00-0400Heart ohyz518 /minPHYSICIAN [facility] 06-26-2024 21:00-0400Respiratory rate16 /minPHYSICIAN [facility]04-04-2025 21:00-1035NfH3% (BldA) [Mass fraction]100 % PHYSICIAN NO [facility]04-04-2025 21:00-0400 Systolic blood buulnrcz400 mm[Hg]PHYSICIAN NO [facility]03-31-2025 11:21-0400Body snvxhzldoud15.42 [degF]Jorge Mcintosh [facility]03-31-2025 11:21-0400 Diastolic blood svwvkrot799 mm[Hg]Jorge Mcintosh [facility]03-31-2025 11:21-0400Heart ilkc923 /minJohn Arnaldo [facility]03-31-2025 11:21-0400 Respiratory rate18 /minJomillicent Mcintosh [facility]03-31-2025 11:21-8113ZlK4% (BldA) [Mass fraction]98 %Jorge Mcintosh [facility]03-31-2025 11:21-0400 Systolic blood rlivldwi355 mm[Hg]Jorge Mcintosh [facility]03-29-2025 14:08-0400 Diastolic blood wanmjktj07 mm[Hg]Lynn Salas MD Work Phone: [facility]2025 14:08-0400Heart rate97 /Ariel Salas MD Work Phone: 1(014)483-[address] [place], [place] 5101403-29-2025 14:08-0400Respiratory rate19 /Ariel Salas MD Work Phone: 1(846)553-[address] [place], [place] 1955003-29-2025 14:08-6749XhH4% (BldA) [Mass fraction]98 %Lynn Salas MD Work Phone: 1(546)495-[address] [place], [place] 5101403-29-2025 14:08-0400Systolic blood mm[Hg]Lynn Salas MD Work Phone: 1([phone] [place], [place] 5101403-29-2025 12:45-0400Body dumuirxgqzr01.9 [degF]Lynn Salas MD Work Phone: 1(340)053-[address] [place], [place] 5101403-27-2025 19:10-0400Diastolic blood zlecpsjt22 mm[Hg][facility]03-27-2025 19:10-0400Heart rate93 /min [facility]03-27-2025 19:10-0400Respiratory rate16 /[facility]03-27-2025 19:10-0374ZyD5% (BldA) [Mass fraction]94 %[facility] 06-18-2024 19:10-0400Systolic blood bnbyupuz422 mm[Hg][facility] 06-18-2024 17:38-0400Body ukimip591 cmASelect [facility]03-27-2025 17:38-0400 Body mass index (BMI) [Ratio]46.06 kg/g3Gqqnz[facility]03-27-2025 17:38-0400 Body cqqhbe655.94 [facility]03-27-2025 17:36-0400Body temperature 98.49 [degF]UUSEE Mlplct55-36-5690 21:30-0400Body mzoejz591.02 cm PHYSICIAN [facility]03-26-2025 21:30-0400Body alaghthgain59.4 [degF]PHYSICIAN [facility] 06-17-2024 21:30-0400Body uhwqwi470.93 kgPHYSICIAN [facility]03-26-2025 21:30-0400Diastolic blood oghxanhh19 mm[Hg]PHYSICIAN NO [facility]03-26-2025 21:30-0400Heart onjt076 /min PHYSICIAN [facility]03-26-2025 21:30-0400 Respiratory rate18 /minPHYSICIAN [facility] 06-17-2024 21:30-6147NpE9% (BldA) [Mass fraction]98 %PHYSICIAN [facility]03-26-2025 21:30-0400Systolic blood najcvxpm670 mm[Hg]PHYSICIAN NO [facility]03-22-2025 20:32-0400 Body gkapafcccgl93.5 [degF]Fatou Tellez MD Work Phone: 1)416-[facility]03-22-2025 20:32-0400 Diastolic blood saxmdwvx10 mm[Hg]Fatou Tellez MD Work Phone: 1)621-[facility]03-22-2025 20:32-0400 Heart voub765 /Gisselle Tellez MD Work Phone: [facility]03-22-2025 20:32-0400 Respiratory rate20 /Gisselle Tellez MD Work Phone: [facility]03-22-2025 20:32-0400 SaO2% (BldA) [Mass fraction]96 %Fatou Tellez MD Work Phone: [facility]03-22-2025 20:32-0400 Systolic blood jylgnocc671 mm[Hg]Fatou Tellez MD Work Phone: 1(788)875-[facility]03-21-2025 02:07-0400 Body dtqilr116 Shama Tellez MD Work Phone: [facility]03-21-2025 02:07-0400 Body mass index (BMI) [Ratio]47.83 kg/m2Fatou Tellez MD Work Phone: [facility]03-21-2025 02:07-0400 Body bdfnpo141.47 kgFatou Tellez MD Work Phone: [facility]03-19-2025 20:14-0400 Body cicedu868.02 cmPHYSICIAN [facility] 06-10-2024 20:14-0400Body tnpkwdhnazm54.2 [degF]PHYSICIAN [facility]03-19-2025 20:14-0400Body xuuqic511.56 kgPHYSICIAN [facility]03-19-2025 20:14-0400Diastolic blood mjdpxqip593 mm[Hg]PHYSICIAN [facility]03-19-2025 20:14-0400Heart tfdo853 /minPHYSICIAN [facility]03-19-2025 20:14-0400Respiratory rate18 /minPHYSICIAN [facility]03-19-2025 20:14-6348BuX9% (BldA) [Mass fraction]98 % PHYSICIAN [facility]03-19-2025 20:14-0400 Systolic blood ahcwbxsn254 mm[Hg]PHYSICIAN [facility]03-19-2025 11:09-0400Diastolic blood kjutflhj90 mm[Hg][facility]03-19-2025 11:09-0400Heart yimw017 /[facility]-19-2025 11:09-0400Respiratory rate20 /[facility]-19-2025 11:09-4577RoF1% (BldA) [Mass fraction]98 %[facility]03-19-2025 11:09-0400 Systolic blood guavncdu887 mm[Hg][facility] 06-06-2024 12:04-0400Body husyabydpdh46.1 [degF]Jennifer Pierce MD Work Phone: [facility](167)[facility] 12:04-0400Diastolic blood poxbpzgo19 mm[Hg]Jennifer Pierce MD Work Phone: 1(917)[facility] HospitalUqgvvc30-93-8789 12:04-0400Heart rate97 /min Jennifer Pierce MD Work Phone: 1(164)[facility] HospitalJzuofq53-10-3400 12:04-0400Respiratory rate18 /minJennifer Pierce MD Work Phone: 1(864)[facility] HospitalDnvbeh93-08-7860 12:04-5928DlJ4% (BldA) [Mass fraction]96 %Jennifer Pierce MD Work Phone: 1(447)[facility] HospitalTgtokr15-02-0762 12:04-0400Systolic blood mm[Hg]Jennifer Pierce MD Work Phone: 1(992)[facility] HospitalFobmjy00-49-0388 21:07-0500Body .02 cmPHYSICIAN [facility]03-08-2025 21:07-0500Body xoqsarxmpbk53.3 [degF]PHYSICIAN [facility] 05-30-2024 21:07-0500Body .1 kgPHYSICIAN [facility]03-08-2025 21:07-0500Diastolic blood tuhllaoa94 mm[Hg]PHYSICIAN [facility]03-08-2025 21:07-0500Heart eiou046 /min PHYSICIAN [facility]03-08-2025 21:07-0500 Respiratory rate18 /minPHYSICIAN [facility] 05-30-2024 21:07-7229KdB8% (BldA) [Mass fraction]98 %PHYSICIAN [facility]03-08-2025 21:07-0500Systolic blood dyilyqkv954 mm[Hg]PHYSICIAN NO [facility]03-06-2025 20:03-0500 Body mmsraj202.02 cmPHYSICIAN NO [facility] 05-28-2024 20:03-0500Body valzzosregd84.1 [degF]PHYSICIAN NO [facility]03-06-2025 20:03-0500Body cbfaej313 kgPHYSICIAN NO [facility]03-06-2025 20:03-0500Diastolic blood pressure 100 mm[Hg]PHYSICIAN NO [facility]03-06-2025 20:03-0500Heart mdse572 /minPHYSICIAN NO [facility] 05-28-2024 20:03-0500Respiratory rate18 /minPHYSICIAN [facility]03-06-2025 20:03-8414NfF2% (BldA) [Mass fraction]99 % PHYSICIAN NO [facility]03-06-2025 20:03-0500 Systolic blood vrljdezj390 mm[Hg]PHYSICIAN NO [facility]03-05-2025 19:18-0500Body pjzsys834 cmAsamreen Grullon MD Work Phone: [facility]03-05-2025 19:18-0500 Body mass index (BMI) [Ratio]46.06 kg/u3WgsxklAllyson Grullon MD Work Phone: [facility]03-05-2025 19:18-0500 Body zlqudjyfooe16.2 [degF]Allyson Grullon MD Work Phone: [facility]03-05-2025 19:18-0500 Body .94 kgAllyson Grullon MD Work Phone: [facility]03-05-2025 19:18-0500 Diastolic blood pjuafxme77 mm[Hg]Allyson Grullon MD Work Phone: [facility]03-05-2025 19:18-0500 Heart hbah428 /minAllyson Grullon MD Work Phone: 1(654)[address]03-05-2025 19:18-0500 Respiratory rate17 /Mya Grullon MD Work Phone: 1(485)[address] [place], [place] 3497403-05-2025 19:18-0500 SaO2% (BldA) [Mass fraction]97 %Allyson Grullon MD Work Phone: 1(900)8-[address] [place], [place] 6476903-05-2025 19:18-0500 Systolic blood mm[Hg]Allyson Grullon MD Work Phone: 1(735)[address] [place], [place] 3497403-04-2025 13:49-0500 Body njfuea340 cmMarlee Fitzpatrick MD Work Phone: 1(388)[address] [place], [place] 6245203-04-2025 13:49-0500 Body mass index (BMI) [Ratio]47.47 kg/c9XmhgybrpttcMarlee Fitzpatrick MD Work Phone: 1(745)[address] [place], [place] 6245203-04-2025 13:49-0500 Body uqfeyoqhdvj96.8 [degF]Marlee Fitzpatrick MD Work Phone: 1(802)[address] [place], [place] 6245203-04-2025 13:49-0500 Body gqzulh290.56 kgMarlee Fitzpatrick MD Work Phone: 1(937)[address] [place], [place] 6245203-04-2025 13:49-0500 Diastolic blood gpwybmzh35 mm[Hg]Marlee Fitzpatrick MD Work Phone: 1(943)[address] [place], [place] 6245203-04-2025 13:49-0500 Heart yuty058 /Franck Fitzpatrick MD Work Phone: 1(872)[address] [place], [place] 6245203-04-2025 13:49-0500 Respiratory rate20 /Franck Fitzpatrick MD Work Phone: 1(980)[address] [place], [place] 6245203-04-2025 13:49-0500 SaO2% (BldA) [Mass fraction]99 %Marlee Fitzpatrick MD Work Phone: [facility]03-04-2025 13:49-0500 Systolic blood pdnptybp826 mm[Hg]Marlee Fitzpatrick MD Work Phone: [facility]03-03-2025 20:32-0500 Diastolic blood ovrxjkqj82 mm[Hg]PHYSICIAN NO [facility]03-03-2025 20:32-0500Heart sbix490 /minPHYSICIAN [facility]03-03-2025 20:32-0500Respiratory rate18 /minPHYSICIAN [facility]03-03-2025 20:32-7845IjG9% (BldA) [Mass fraction]97 %PHYSICIAN [facility]03-03-2025 20:32-0500Systolic blood jnelelgg796 mm[Hg]PHYSICIAN NO [facility]03-03-2025 19:22-0500Body dyhdcd820.02 cmPHYSICIAN [facility]03-03-2025 19:22-0500Body cdvyqbeqfiy61.5 [degF]PHYSICIAN [facility]03-03-2025 19:22-0500 Body ytnstu416.5 kgPHYSICIAN [facility] 05-23-2024 18:55-0500Body trcdgguipxz79.24 [degF]Jorge Mcintosh [facility]03-01-2025 18:55-0500 Diastolic blood zzztcgpe662 mm[Hg]Jorge Mcintosh [facility]03-01-2025 18:55-0500Heart emdz694 /minJorge Mcintosh [facility]03-01-2025 18:55-0500 Respiratory rate18 /minRoyamillicent Mcintosh [facility]03-01-2025 18:55-4523FpO4% (BldA) [Mass fraction]99 %Jorge Mcintosh [facility]03-01-2025 18:55-0500 Systolic blood jkirzugd191 mm[Hg]Jorge Mcintosh [facility]02-23-2025 04:33-0500Body oowkiusxtbi64.1 [degF]Maggie Degroot MD Work Phone: 1(234)7-[address] [place], [place] 2350502-23-2025 04:33-0500 Diastolic blood eanlfxxy58 mm[Hg]Maggie Degroot MD Work Phone: 1(433)[address] [place], [place] 7472702-23-2025 04:33-0500 Heart rate76 /Mich Degroot MD Work Phone: 1(312)[address] [place], [place] 7472702-23-2025 04:33-0500 SaO2% (BldA) [Mass fraction]96 %Maggie Degroot MD Work Phone: 1(034)3-[address] [place], [place] 2350502-23-2025 04:33-0500 Systolic blood wbffzive497 mm[Hg]Maggie Degroot MD Work Phone: 1(715)[address]02-22-2025 19:02-0500 Body mass index (BMI) [Ratio]47.62 kg/h7XqxnvMaggie Degroot MD Work Phone: 1(607)5-[address] [place], [place] 2350502-22-2025 19:02-0500 Body .93 kgMaggie Degroot MD Work Phone: 1(996)2-[address] [place], [place] 2350502-22-2025 16:00-0500 Respiratory rate18 /Mich Degroot MD Work Phone: 1(640)6-[address] [place], [place] 2350502-21-2025 17:22-0500 Body igawqf190 cmRtulio Degroot MD Work Phone: 1(078)[address]02-20-2025 22:02-0500 Body hsyztvrnbxv29.9 [degF]Rd Reza MD Work Phone: 1(216)[address] [place], [place] 9355802-20-2025 22:02-0500 Diastolic blood mm[Hg]Rd Reza MD Work Phone: 1216)[address] [place], [place] 7472702-20-2025 22:02-0500 Heart rate88 /Avi Reza MD Work Phone: 1(216)[address] [place], [place] 7472702-20-2025 22:02-0500 Respiratory rate17 /Avi Reza MD Work Phone: 1(216)[address] [place], [place] 7472702-20-2025 22:02-0500 SaO2% (BldA) [Mass fraction]99 %Rd Reza MD Work Phone: 1(216)[address] [place], [place] 7472702-20-2025 22:02-0500 Systolic blood pycogqah286 mm[Hg]Rd Reza MD Work Phone: 1(216)[address] [place], [place] 7472702-20-2025 15:23-0500 Body yrhfbk686 cmRd Reza MD Work Phone: 1(216)[address] [place], [place] 7472702-20-2025 15:23-0500 Body mass index (BMI) [Ratio]44.29 kg/s8FgyqwtdoRd Reza MD Work Phone: 1(216)[address] [place], [place] 7472702-20-2025 15:23-0500 Body .4 kgRd Reza MD Work Phone: 1(216)[address] [place], [place] 7472702-20-2025 09:07-0500 Body breolqddzbh81.16 [degF][facility] 05-14-2024 09:07-0500Diastolic blood muoecvrr42 mm[Hg][facility]02-20-2025 09:07-0500Heart rate85 /[facility]02-20-2025 09:07-0500Respiratory rate18 /[facility]-20-2025 09:07-4517LaZ0% (BldA) [Mass fraction] 100 %[facility]02-20-2025 09:07-0500Systolic blood abbjiwjb170 mm[Hg][facility]02-11-2025 14:34-0500Body yhuium965 cmAclaudine Woodard MD Work Phone: 1(216)[address] [place], [place] 8453202-11-2025 14:34-0500 Body mass index (BMI) [Ratio]44.29 kg/u4UemxewsuJudah Woodard MD Work Phone: 1(216)[address] [place], [place] 8453202-11-2025 14:34-0500 Body jeotiicffwr95.5 [degF]Judah Woodard MD Work Phone: 1(216)[address] [place], [place] 8453202-11-2025 14:34-0500 Body daqwgt108.4 kgJudah Woodard MD Work Phone: 1(216)[address] [place], [place] 8453202-11-2025 14:34-0500 Heart rate84 /Zayra Woodard MD Work Phone: 1(216)[address] [place], [place] 8453202-11-2025 14:34-0500 Respiratory rate22 /Zayra Woodard MD Work Phone: 1(216)[address] [place], [place] 8453202-08-2025 09:13-0500 Body lknyziphbmv16.6 [degF]Elke Bai MD Work Phone: 1(216)[address] [place], [place] 2360402-08-2025 09:13-0500 Diastolic blood mm[Hg]Elke Bai MD Work Phone: 1(216)[address] [place], [place] 2360402-08-2025 09:13-0500 Heart rate80 /Claudine Bai MD Work Phone: 1(216)[address] [place], [place] 2360402-08-2025 09:13-0500 Respiratory rate16 /Claudine Bai MD Work Phone: 1(216)[address] [place], [place] 2360402-08-2025 09:13-0500 SaO2% (BldA) [Mass fraction]100 %Elke Bai MD Work Phone: 1(556)510-[address] [place], [place] 7482402-08-2025 09:13-0500 Systolic blood nyeulict146 mm[Hg]Elke Bai MD Work Phone: [phone])920-[address] [place], [place] 7482402-06-2025 20:26-0500 Body cmElke Bai MD Work Phone: [phone])446-[address] [place], [place] 7482402-06-2025 20:26-0500 Body mass index (BMI) [Ratio]44.29 kg/m6SxnaanlcElke Bai MD Work Phone: [phone])516-[address] [place], [place] 7482402-06-2025 20:26-0500 Body xjagyh762.4 kgElke Bai MD Work Phone: 1(714)953-[address] [place], [place] 7482402-04-2025 12:56-0500 Body yzikppdbhem20.88 [degF][facility] 04-28-2024 12:56-0500Diastolic blood yuojbobq17 mm[Hg][facility]02-04-2025 12:56-0500Heart mrhc531 /min[facility]02-04-2025 12:56-0500Respiratory rate20 /[facility]02-04-2025 12:56-0521ExC0% (BldA) [Mass fraction] 100 %[facility]02-04-2025 12:56-0500Systolic blood woqaujju371 mm[Hg][facility]01-31-2025 19:40-0500Body .02 cmPHYSICIAN [facility]01-31-2025 19:40-0500Body adgcddimcey95.8 [degF]PHYSICIAN [facility]01-31-2025 19:40-0500Body urecel225.39 kg PHYSICIAN [facility]01-31-2025 19:40-0500 Diastolic blood hhdzzocf657 mm[Hg]PHYSICIAN NO [facility]01-31-2025 19:40-0500Heart dztj244 /minPHYSICIAN NO [facility]01-31-2025 19:40-0500Respiratory rate23 /minPHYSICIAN [facility]01-31-2025 19:40-0841OlS3% (BldA) [Mass fraction]100 %PHYSICIAN NO [facility]01-31-2025 19:40-0500Systolic blood zuwygutm533 mm[Hg]PHYSICIAN NO [facility]01-31-2025 04:12-0500Body ybxcvxcecbp88.2 [degF]Mora Mandujano MD Work Phone: [address] [place], [place] 2360401-31-2025 04:12-0500 Diastolic blood hcuegdcs00 mm[Hg]Mora Mandujano MD Work Phone: [address] [place], [place] 2360401-31-2025 04:12-0500 Heart rate94 /minMora Mandujano MD Work Phone: 1(700)[address]01-31-2025 04:12-0500 SaO2% (BldA) [Mass fraction]96 %Mora Mandujano MD Work Phone: [address]01-31-2025 04:12-0500 Systolic blood zlhucrpf496 mm[Hg]Mora Mandujano MD Work Phone: [address]01-30-2025 23:47-0500 Respiratory rate20 /minMora Mandujano MD Work Phone: 1216)197-[address] [place], [place] 7482401-30-2025 20:03-0500 Body ateccc062 cmMora Mandujano MD Work Phone: 1(016)[address]01-30-2025 20:03-0500 Body mass index (BMI) [Ratio]44.29 kg/e7WmpgevhMora Mandujano MD Work Phone: 1(168)[address] [place], [place] 2360401-30-2025 20:03-0500 Body dggyws502.4 kgMora Mandujano MD Work Phone: [facility]01-28-2025 20:45-0500 Heart mnzi760 /minPHYSICIAN [facility]01-28-2025 19:51-0500Body lpfhje516.02 cmPHYSICIAN [facility]01-28-2025 19:51-0500Body hkzwszmkevr92.2 [degF]PHYSICIAN NO [facility]01-28-2025 19:51-0500Body dedfvw434 kgPHYSICIAN [facility]01-28-2025 19:51-0500Diastolic blood cbycekdm366 mm[Hg]PHYSICIAN NO [facility]01-28-2025 19:51-0500Respiratory rate24 /minPHYSICIAN [facility]01-28-2025 19:51-8503ByR6% (BldA) [Mass fraction]97 %PHYSICIAN NO [facility]01-28-2025 19:51-0500Systolic blood tsjjglto527 mm[Hg]PHYSICIAN NO [facility]01-26-2025 12:16-0500 Body ehwfpyxsmwt66.7 [degF]Nikhil Tubbs [facility]01-26-2025 12:16-0500 Diastolic blood ythpeqep878 mm[Hg]Nikhil Tubbs [facility]01-26-2025 12:16-0500Heart rate91 /Lynette Tubbs [facility]01-26-2025 12:16-0500 Respiratory rate20 /Lynette Tubbs [facility]01-26-2025 12:16-5087VbI8% (BldA) [Mass fraction]100 %Nikhil Tubbs [facility]01-26-2025 12:16-0500 Systolic blood nqhwwkul067 mm[Hg]Nikhil Tubbs [address] [place], [place] 9880101-20-2025 14:11-0500Body trbmrhwqtdu20.52 [degF][facility]01-20-2025 14:11-0500Diastolic blood zsevcisg76 mm[Hg][facility]01-20-2025 14:11-0500Heart rate95 /[facility]01-20-2025 14:11-0500Respiratory rate18 /[facility]01-20-2025 14:11-3746YqR4% (BldA) [Mass fraction]100 %[facility]01-20-2025 14:11-0500Systolic blood pressure 166 mm[Hg][facility]01-19-2025 09:01-0500 Diastolic blood avdinlhv871 mm[Hg][facility] 04-12-2024 09:01-0500Heart zlte259 /[facility]01-19-2025 09:01-0500Respiratory rate20 /[facility]01-19-2025 09:01-3094DmO3% (BldA) [Mass fraction]99 %[facility]01-19-2025 09:01-0500Systolic blood pressure 173 mm[Hg][facility]01-04-2025 12:28-0500Body vtccasvmmom08.52 [degF]Jorge Mcintosh [address] [place], [place] 9880101-04-2025 12:28-0500 Diastolic blood svuuxzdn23 mm[Hg]Jorge Mcintosh [address] [place], [place] 9880101-04-2025 12:28-0500Heart bqrr156 /minJorge Arnaldo [address] [place], [place] 9880101-04-2025 12:28-0500 Respiratory rate16 /Sulma Mcintosh [facility]01-04-2025 12:28-4634HxS2% (BldA) [Mass fraction]97 %Jorge Mcintosh [facility]01-04-2025 12:28-0500 Systolic blood vjksahsm648 mm[Hg]Jorge Mcintosh [facility]01-04-2025 03:50-0500 Diastolic blood jadzaeym00 mm[Hg]Dalton Grey MD Work Phone: [facility]01-04-2025 03:50-0500 Heart rate91 /Jeanette Grey MD Work Phone: 2([phone]01-04-2025 03:50-0500 Respiratory rate17 /Jeanette Grey MD Work Phone: [phone](113)770-75[facility]01-04-2025 03:50-0500 SaO2% (BldA) [Mass fraction]99 %Dalton Grey MD Work Phone: [phone](813)498-25[facility]01-04-2025 03:50-0500 Systolic blood epqwyhqb177 mm[Hg]Dalton Grey MD Work Phone: [facility]01-03-2025 18:11-0500 Body pgmsya874 Lauren Grey MD Work Phone: 1([phone]01-03-2025 18:11-0500 Body mass index (BMI) [Ratio]45.17 kg/m2Dalton Grey MD Work Phone: [phone])664-30[facility]01-03-2025 18:11-0500 Body zlqkabegqky13.2 [degF]Dalton Grey MD Work Phone: [phone]01-03-2025 18:11-0500 Body .67 kgDalton Grey MD Work Phone: [facility]01-02-2025 18:59-0500 Body jmiboouwvdn54.24 [degF]Elisa Sánchez [address] [place], [place] 4822601-02-2025 18:59-0500 Diastolic blood uvlvuctk674 mm[Hg]Houstoninn Dokken [address] [place], [place] 4822601-02-2025 18:59-0500Heart nwav848 /minHoustoninn kken [address] [place], [place] 4822601-02-2025 18:59-0500 Respiratory rate20 /minBebetoylinn Dokken [address] [place], [place] 4822601-02-2025 18:59-3504BaJ0% (BldA) [Mass fraction]97 %Paulan Gonzalo [address] [place], [place] 4822601-02-2025 18:59-0500 Systolic blood soyvrvvj270 mm[Hg]Paulan Gonzalo [address] [place], [place] 4822601-02-2025 16:14-0500Body uwxfya523 cmMarlee Fitzpatrick MD Work Phone: [facility]01-02-2025 16:14-0500 Body mass index (BMI) [Ratio]45.17 kg/d6NlrlmwgxcemMarlee Fitzpatrick MD Work Phone: [facility]01-02-2025 16:14-0500 Body mwpkrhziohh04.3 [degF]Marlee Fitzpatrick MD Work Phone: [facility]01-02-2025 16:14-0500 Body olyxol407.67 kgMarlee Fitzpatrick MD Work Phone: [facility]01-02-2025 16:14-0500 Diastolic blood iofueajc27 mm[Hg]Marlee Fitzpatrick MD Work Phone: [facility]01-02-2025 16:14-0500 Heart lvfd157 /Franck Fitzpatrick MD Work Phone: [facility]01-02-2025 16:14-0500 Respiratory rate18 /Franck Fitzpatrick MD Work Phone: [facility]01-02-2025 16:14-0500 SaO2% (BldA) [Mass fraction]98 %Marlee Fitzpatrick MD Work Phone: [facility]01-02-2025 16:14-0500 Systolic blood cnkhoqxu777 mm[Hg]Marlee Fitzpatrick MD Work Phone: [facility]12-28-2024 12:51-0500 Body uzjmnkhlxfu01.06 [degF]Jorge Mcintosh [address]12-28-2024 12:51-0500 Diastolic blood kbvizcco44 mm[Hg]Jorge Mcintosh [address]12-28-2024 12:51-0500Heart rate98 /Sulma Mcintosh [address] [place], [place] 9880112-28-2024 12:51-0500 Respiratory rate18 /Sulma Mcintosh [address] [place], [place] 9880112-28-2024 12:51-9510BwU6% (BldA) [Mass fraction]94 %Jorge Mcintosh [address] [place], [place] 9880112-28-2024 12:51-0500 Systolic blood csehenky422 mm[Hg]Jorge Arnaldo [address] [place], [place] 9880112-26-2024 22:39-0500 Diastolic blood qgxinrmv65 mm[Hg]Marlee Fitzpatrick MD Work Phone: [facility]12-26-2024 22:39-0500 Heart rate99 /Franck Fitzpatrick MD Work Phone: 1(457)[address] [place], [place] 6245212-26-2024 22:39-0500 SaO2% (BldA) [Mass fraction]98 %Marlee Fitzpatrick MD Work Phone: 1(608)[address] [place], [place] 6245212-26-2024 22:39-0500 Systolic blood mm[Hg]Marlee Fitzpatrick MD Work Phone: 1(193)[address] [place], [place] 6245212-26-2024 17:55-0500 Body oqrfup816 cmMarlee Fitzpatrick MD Work Phone: 1(273)[address] [place], [place] 6245212-26-2024 17:55-0500 Body mass index (BMI) [Ratio]45.17 kg/g8YunueigzaqrMarlee Fitzpatrick MD Work Phone: 1(218)[address] [place], [place] 6245212-26-2024 17:55-0500 Body ulsjkwxmxho33.5 [degF]Marlee Fitzpatrick MD Work Phone: 1(543)[address] [place], [place] 6245212-26-2024 17:55-0500 Body .67 kgMarlee Fitzpatrick MD Work Phone: 1(409)[address] [place], [place] 6245212-26-2024 17:55-0500 Respiratory rate18 /Franck Fitzpatrick MD Work Phone: 1(895)[address] [place], [place] 6245212-25-2024 18:21-0500 Body nnutyszgmjk49.88 [degF]Jorge Mcintosh [facility]12-25-2024 18:21-0500 Diastolic blood hrkxzjeo77 mm[Hg]Jorge Mcintosh [facility]12-25-2024 18:21-0500Heart rate83 /Sulma Mcintosh [facility]12-25-2024 18:21-0500 Respiratory rate16 /Sulma Mcintosh [facility]12-25-2024 18:21-0387VwQ1% (BldA) [Mass fraction]95 %Jorge Mcintosh [facility]12-25-2024 18:21-0500 Systolic blood lnoetmlg646 mm[Hg]Jorge Mcintosh [facility]12-17-2024 14:14-0500Body edkvii066 Edison Woodard MD Work Phone: 1216)[facility]80[facility]12-17-2024 14:14-0500 Body mass index (BMI) [Ratio]44.29 kg/e7FrprumukJudah Woodard MD Work Phone: 1(216)[address] [place], [place] 8453212-17-2024 14:14-0500 Body arizuugiexx94.7 [degF]Judah Woodard MD Work Phone: 1()[address] [place], [place] 8453212-17-2024 14:14-0500 Body aliuac470.4 kgJudah Woodard MD Work Phone: 1(216)[address] [place], [place] 8453212-17-2024 14:14-0500 Diastolic blood xijwpezi89 mm[Hg]Judah Woodard MD Work Phone: 1(216)[address] [place], [place] 8453212-17-2024 14:14-0500 Heart rate86 /minJudah Woodard MD Work Phone: 1(216)[address] [place], [place] 8453212-17-2024 14:14-0500 Respiratory rate16 /minJudah Woodard MD Work Phone: 1(216)[address] [place], [place] 8453212-17-2024 14:14-0500 Systolic blood ijtuualt380 mm[Hg]Judah Woodard MD Work Phone: 1(216)[address] [place], [place] 8453212-16-2024 21:48-0500 Diastolic blood igigxccm98 mm[Hg]Jarocho Delatorre DO Work Phone: [facility]12-16-2024 21:48-0500 Heart rate94 /minJarocho Delatorre DO Work Phone: 1(388)[address] [place], [place] 9859012-16-2024 21:48-0500 Respiratory rate18 /minRichesdras Delatorre DO Work Phone: 1(790)[address] [place], [place] 9859012-16-2024 21:48-0500 SaO2% (BldA) [Mass fraction]98 %Jarocho Delatorre DO Work Phone: 1(763)[address] [place], [place] 9859012-16-2024 21:48-0500 Systolic blood gftvehqu879 mm[Hg]Jarocho Yangersen DO Work Phone: 1(466)[address] [place], [place] 9859012-16-2024 19:25-0500 Body lsejhi533.5 cmRichesdras Delatorre DO Work Phone: 1(312)[address] [place], [place] 9859012-16-2024 19:25-0500 Body mass index (BMI) [Ratio]45.73 kg/a7BvaznjaJarocho Yangersen DO Work Phone: 1(728)[address] [place], [place] 9859012-16-2024 19:25-0500 Body uxtiybgqkde44.8 [degF]Jarocho Yangersen DO Work Phone: 1(226)[address] [place], [place] 9859012-16-2024 19:25-0500 Body yupmtb424.4 kgJarocho Delatorre DO Work Phone: 1(720)[address] [place], [place] 9859012-10-2024 09:48-0500 Body .1 [degF]Iveth Burger H[employer]ER[employer]WAIVER ANALYST Work Phone: 1(448)0-[address] [place], [place] 3066212-10-2024 09:48-0500 Diastolic blood tqhiwojf87 mm[Hg]Iveth Burger H[employer]ER[employer]WAIVER ANALYST Work Phone: 1(419)1-[address] [place], [place] 3066212-10-2024 09:48-0500 Heart rate99 /minIveth Burger HOT BLASTER[employer]WAIVER ANALYST Work Phone: 1(001)6-[address] [place], [place] 3066212-10-2024 09:48-0500 Systolic blood mm[Hg]Iveth Burger HOT [employer]ER-WAIVER ANALYST Work Phone: [facility]12-09-2024 09:49-0500 Body mgiycq781 cmMarlee Fitzpatrick MD Work Phone: [facility]12-09-2024 09:49-0500 Body mass index (BMI) [Ratio]45.35 kg/r3WxnqkferfsyMarlee Fitzpatrick MD Work Phone: [facility]12-09-2024 09:49-0500 Body cdsokvvecab31.39 [degF]Marlee Fitzpatrick MD Work Phone: 1(463)[address]12-09-2024 09:49-0500 Body tgxyut282.12 kgMarlee Fitzpatrick MD Work Phone: 1(359)[address]12-09-2024 09:49-0500 Diastolic blood ztjagrvr09 mm[Hg]Marlee Fitzpatrick MD Work Phone: 1(202)[address]12-09-2024 09:49-0500 Heart rate68 /Franck Fitzpatrick MD Work Phone: [facility]12-09-2024 09:49-0500 Systolic blood nlzwhrcy817 mm[Hg]Marlee Fitzpatrick MD Work Phone: 1(992)[address]12-07-2024 19:47-0500 Body iskawyttpzr65.88 [degF]Pedro Pablo Chance [facility]12-07-2024 19:47-0500 Diastolic blood jafrdccw669 mm[Hg]Pedro Pablo Chance [facility]12-07-2024 19:47-0500Heart rmbl336 /minNoah Chance [facility]12-07-2024 19:47-0500 Respiratory rate20 /minNoah Chance [facility]12-07-2024 19:47-6224NcR1% (BldA) [Mass fraction]97 %Pedro Pablo Chance [address] [place], [place] 4822612-07-2024 19:47-0500 Systolic blood gxnlzosl038 mm[Hg]Pedro Pablo Chance [address] [place], [place] 4822612-07-2024 18:33-0500Body kcebbjltirp86.7 [degF]Pedro Pablo Chance [address] [place], [place] 4822612-07-2024 18:33-0500 Diastolic blood yfwleimg457 mm[Hg]Pedro Pablo Chance [address] [place], [place] 4822612-07-2024 18:33-0500Heart shsi694 /minNoah Chance [address] [place], [place] 4822612-07-2024 18:33-0500 Respiratory rate22 /minNoah Chance [address] [place], [place] 4822612-07-2024 18:33-9296IhJ9% (BldA) [Mass fraction]97 %Pedro Pablo Chance [address] [place], [place] 9880112-07-2024 18:33-0500 Systolic blood dzbgwkfu735 mm[Hg]Pedro Pablo Chance [address] [place], [place] 4822612-05-2024 12:30-0500Body nsuslqjdsfa85.88 [degF]Nikhil Tubbs [address] [place], [place] 9880112-05-2024 12:30-0500 Diastolic blood vvdmpwyn78 mm[Hg]Nikhil Tubbs [address] [place], [place] 9880112-05-2024 12:30-0500Heart bfvl505 /minKeene Tubbs [address] [place], [place] 9880112-05-2024 12:30-0500 Respiratory rate20 /minNikhil Tubbs [address] [place], [place] 9880112-05-2024 12:30-7039RpT8% (BldA) [Mass fraction]97 %Nikhil Tubbs [address] [place], [place] 9880112-05-2024 12:30-0500 Systolic blood husmjasw396 mm[Hg]Nikhil Tubbs [address] [place], [place] 9880112-04-2024 15:04-0500Body gnhempipepm09.06 [degF]Jorge Mcintosh [address] [place], [place] 9880112-04-2024 15:04-0500 Diastolic blood imvloern426 mm[Hg]Jorge Mcintosh [address]12-04-2024 15:04-0500Heart rate95 /minJorge Mcintosh [address] [place], [place] 9880112-04-2024 15:04-0500 Respiratory rate18 /minJorge Mcintosh [address] [place], [place] 9880112-04-2024 15:04-1017WqA8% (BldA) [Mass fraction]94 %Jorge Mcintosh [address] [place], [place] 9880112-04-2024 15:04-0500 Systolic blood gqbsubrw499 mm[Hg]Jorge Mcintosh [address] [place], [place] 9880112-01-2024 11:06-0500Body dscobzijlul26.6 [degF][facility]12-01-20[facility] 11:06-0500Diastolic blood wesmbopw77 mm[Hg][facility]12-01-2024 11:06-0500Heart rate93 /[facility]2024 11:06-0500Respiratory rate18 /[facility]-01-2024 11:06-2344SxG2% (BldA) [Mass fraction]100 %[facility]12-01-2024 11:06-0500Systolic blood pressure 141 mm[Hg][facility]11-28-2024 16:42-0500Body rsmmgqsgawf00.06 [degF]Nikhil Tubbs [address] [place], [place] 4822611-28-2024 16:42-0500 Diastolic blood abfqyhrn52 mm[Hg]Nikhil Tubbs [address] [place], [place] 4822611-28-2024 16:42-0500Heart rate83 /minNikhil Tubbs [address] [place], [place] 4822611-28-2024 16:42-0500 Respiratory rate20 /Lynette Tubbs [address] [place], [place] 4822611-28-2024 16:42-3012LhY5% (BldA) [Mass fraction]99 %Nikhil Tubbs [address] [place], [place] 4822611-28-2024 16:42-0500 Systolic blood yrqeqidc649 mm[Hg]Nikhil Tubbs [address]11-24-2024 11:00-0500 Diastolic blood bbklsogn07 mm[Hg]Nikhil Tubbs [address] [place], [place] 4822611-24-2024 11:00-0500Heart rate84 /Lynette Tubbs [address] [place], [place] 9880111-24-2024 11:00-0500Mean blood vmdetuom444 mm[Hg]Nikhil Tubbs [address] [place], [place] 9880111-24-2024 11:00-7821WxY3% (BldA) [Mass fraction]97 %Nikhil Tubbs [address] [place], [place] 9880111-24-2024 11:00-0500 Systolic blood mm[Hg]Nikhil Tubbs [address] [place], [place] 4822611-24-2024 10:30-0500 Diastolic blood wpjiovkt59 mm[Hg]Nikhil Tubbs [address] [place], [place] 9880111-24-2024 10:30-0500Heart rate92 /minNikhil Tubbs [address] [place], [place] 9880111-24-2024 10:30-0500Mean blood ilcporln872 mm[Hg]Nikhil Tubbs [address] [place], [place] 4822611-24-2024 10:30-0500 Respiratory rate12 /minNikhil Tubbs [address] [place], [place] 4822611-24-2024 10:30-7592RlM5% (BldA) [Mass fraction]94 %Nikhil Tubbs [address] [place], [place] 4822611-24-2024 10:30-0500 Systolic blood lkpuphdn539 mm[Hg]Nikhil Tubbs [address] [place], [place] 4822611-24-2024 09:58-0500 Diastolic blood mm[Hg]Nikhil Tubbs [address] [place], [place] 4822611-24-2024 09:58-0500Heart rate89 /Lynette Tubbs [address] [place], [place] 4822611-24-2024 09:58-0500 Hourly RoundingNikhil Tubbs [address] [place], [place] 4822611-24-2024 09:58-0500Mean blood mm[Hg]Nikhil Tubbs [address] [place], [place] 9880111-24-2024 09:58-0500 Respiratory rate17 /minNikhil Tubbs [address] [place], [place] 9880111-24-2024 09:58-5367WvJ7% (BldA) [Mass fraction]95 %Nikhil Tubbs [address] [place], [place] 9880111-24-2024 09:58-0500 Systolic blood mm[Hg]Nikhil Tubbs [address] [place], [place] 4822611-24-2024 09:48-0500 Respiratory rate16 /minNikhil Tubbs [address] [place], [place] 9880111-24-2024 09:43-0500 Respiratory rate16 /minNikhil Tubbs [address] [place], [place] 4822611-24-2024 09:20-0500Body uvwoapqqmci78.24 [degF]Nikhil Tubbs [address] [place], [place] 9880111-24-2024 09:20-0500Heart dxaj685 /batoolNikhil Tubbs [address] [place], [place] 4822611-24-2024 09:20-0500 Respiratory rate17 /minNikhil Tubbs [address] [place], [place] 4822611-22-2024 15:00-0500 Diastolic blood mm[Hg]Jorge Mcintosh [address] [place], [place] 4822611-22-2024 15:00-0500Heart rate86 /minJorge Arnaldo [address] [place], [place] 9880111-22-2024 15:00-0500Mean blood mm[Hg]Jorge Mcintosh [address] [place], [place] 9880111-22-2024 15:00-9095VhW6% (BldA) [Mass fraction]97 %Jorge Mcintosh [address] [place], [place] 9880111-22-2024 15:00-0500 Systolic blood kfxdgsuc320 mm[Hg]Jorge Mcintosh [address] [place], [place] 9880111-22-2024 14:27-0500Heart rate83 /minJorge Arnaldo [address] [place], [place] 9880111-22-2024 14:27-0500 Respiratory rate20 /minRoyamillicent Mcintosh [address] [place], [place] 9880111-22-2024 14:15-0500Heart rate74 /minJorge Mcintosh [address] [place], [place] 9880111-22-2024 14:15-0500 Respiratory rate20 /minJorge Mcintosh [address] [place], [place] 9880111-22-2024 14:15-9879LuT4% (BldA) [Mass fraction]86 %Jorge Mcintosh [address] [place], [place] 9880111-22-2024 14:00-0500Mean blood rprygqdh934 mm[Hg]Jorge Mcintosh [address] [place], [place] 9880111-22-2024 14:00-0500 Systolic blood yciegdcp983 mm[Hg]Jorge Mcintosh [address]11-22-2024 12:19-0500Body llnmbombxmm64.42 [degF]Jorge Mcintosh [address]11-22-2024 12:19-0500 Diastolic blood kwglcihp45 mm[Hg]Jorge Mcintosh [address] [place], [place] 9880111-22-2024 12:19-0500Heart risv565 /Sulma Mcintosh [address] [place], [place] 9880111-22-2024 12:19-0500 Systolic blood mm[Hg]Jorge Mcintosh [address] [place], [place] 9880111-17-2024 14:00-0500 Diastolic blood mm[Hg]Allyson Hardwick MD Work Phone: [facility]11-17-2024 14:00-0500 Heart rate94 /Mya Hardwick MD Work Phone: [facility]11-17-2024 14:00-0500 Respiratory rate16 /Mya Hardwick MD Work Phone: [facility]11-17-2024 14:00-0500 SaO2% (BldA) [Mass fraction]95 %Allyson Hardwick MD Work Phone: 1()7-[address] [place], [place] 7482411-17-2024 14:00-0500 Systolic blood ssenwgtm417 mm[Hg]Allyson Hardwick MD Work Phone: 1()[address] [place], [place] 2360411-17-2024 11:16-0500 Body ycrrwpgmqen77.2 [degF]Allyson Hardwick MD Work Phone: 1()[address] [place], [place] 2360411-17-2024 10:47-0500 Body kbgeze730 cmAsamreen Hardwick MD Work Phone: 1()[address] [place], [place] 2360411-17-2024 10:47-0500 Body mass index (BMI) [Ratio]44.29 kg/i1YiutjzAllyson Hardwick MD Work Phone: 1()[address] [place], [place] 2360411-17-2024 10:47-0500 Body bhszbu935.4 kgAllyson Hardwick MD Work Phone: 1()[address] [place], [place] 2360411-14-2024 18:20-0500 Diastolic blood ddrtumet83 mm[Hg]Judah Woodard MD Work Phone: 1()[address] [place], [place] 8453211-14-2024 18:20-0500 Heart rate95 /Zayra Woodard MD Work Phone: 1()[address] [place], [place] 8453211-14-2024 18:20-0500 Respiratory rate18 /Zayra Woodard MD Work Phone: 1()[address] [place], [place] 8453211-14-2024 18:20-0500 SaO2% (BldA) [Mass fraction]94 %Judah Woodard MD Work Phone: 1()[address] [place], [place] 8453211-14-2024 18:20-0500 Systolic blood swdqwkeq996 mm[Hg]Judah Woodard MD Work Phone: 1()[address] [place], [place] 8453211-14-2024 17:05-0500 Body sqogcxaposo33.7 [degF]Judah Woodard MD Work Phone: 1()[address] [place], [place] 8453211-14-2024 13:03-0500 Body cmAclaudine Woodard MD Work Phone: [facility]11-14-2024 13:03-0500 Body mass index (BMI) [Ratio]43.74 kg/k9YgpbxqscJudah Woodard MD Work Phone: [facility]11-14-2024 13:03-0500 Body kgAbnessa Woodard MD Work Phone: [facility]11-13-2024 20:37-0500 Diastolic blood bzsmhyup85 mm[Hg][facility] [employer] Work Phone: 1(489)[address]11-13-2024 20:37-0500 Heart rate70 /[employer] Work Phone: 1(382)[address]11-13-2024 20:37-0500 Respiratory rate18 /[employer]SCh[employer] Work Phone: 1(178)[address]11-13-2024 20:37-0500 SaO2% (BldA) [Mass fraction]98 %[facility] [employer] Work Phone: 1(274)[address]11-13-2024 20:37-0500 Systolic blood rqtvqcfe708 mm[Hg][facility] [employer] Work Phone: 1(026)[address]11-13-2024 19:12-0500 Body wapqwb305.02 cmServtanner [facility] Work Phone: 1(548)979-[address] [place], [place] 0882311-13-2024 19:12-0500 Body bwepyqihjzn56.3 [degF][facility] [employer] Work Phone: 1(593)188-[address] [place], [place] 0882311-13-2024 19:12-0500 Body btoixt184 kgServic [employer] Work Phone: 1(202)402-[address] [place], [place] 0882311-12-2024 17:03-0500 Body .7 [degF]Jorge Mcintosh [facility]11-12-2024 17:03-0500 Diastolic blood wdakvncq29 mm[Hg]Jorge Mcintosh [facility]11-12-2024 17:03-0500Heart fzpv987 /minJorge Mcintosh [facility]11-12-2024 17:03-0500 Respiratory rate18 /minJorge Mcintosh [facility]11-12-2024 17:03-1090IbT9% (BldA) [Mass fraction]99 %Jorge Mcintosh [facility]11-12-2024 17:03-0500 Systolic blood jqfmkmdu099 mm[Hg]Jorge Mcintosh [facility]11-12-2024 15:22-0500Body aqwlzr326 cmAbdgerson Melgoza MD Work Phone: [facility]11-12-2024 15:22-0500 Body mass index (BMI) [Ratio]44.29 kg/f1RwtgqptwDino Melgoza MD Work Phone: [facility]11-12-2024 15:22-0500 Body amesdl098.4 kgDino Melgoza MD Work Phone: [facility]11-12-2024 15:22-0500 Diastolic blood xibtywzs67 mm[Hg]Dino Melgoza MD Work Phone: [facility]11-12-2024 15:22-0500 Heart dmrf708 /minDino Melgoza MD Work Phone: [facility]11-12-2024 15:22-0500 Respiratory rate22 /minDino Melgoza MD Work Phone: [facility]11-12-2024 15:22-0500 SaO2% (BldA) [Mass fraction]98 %Dino Melgoza MD Work Phone: [facility]11-12-2024 15:22-0500 Systolic blood nmimrkqi389 mm[Hg]Dino Melgoza MD Work Phone: [facility]11-07-2024 12:00-0500 Diastolic blood iatjnlhw200 mm[Hg]Marlee Fitzpatrick MD Work Phone: [facility]11-07-2024 12:00-0500 Heart rate60 /Franck Fitzpatrick MD Work Phone: 1(887)280[facility]11-07-2024 12:00-0500 Respiratory rate16 /Franck Fitzpatrick MD Work Phone: 1(008)[address] [place], [place] 6245211-07-2024 12:00-0500 SaO2% (BldA) [Mass fraction]95 %Marlee Fitzpatrick MD Work Phone: 1(329)503-Counts include 234 beds at the [facility]11-07-2024 12:00-0500 Systolic blood euscvken395 mm[Hg]Marlee Fitzpatrick MD Work Phone: 1(663)479[facility]11-07-2024 11:00-0500 Body yveyhc361 cmMarlee Fitzpatrick MD Work Phone: 1(669)989-[facility]-07-2024 11:00-0500 Body mass index (BMI) [Ratio]44.29 kg/z0OjpqiywfrplMarlee Fitzpatrick MD Work Phone: 1(736)079[facility]11-07-2024 11:00-0500 Body tdeicwzyuyn16.1 [degF]Marlee Fitzpatrick MD Work Phone: 1(256)[address]11-07-2024 11:00-0500 Body hotvyw498.4 kgMarlee Fitzpatrick MD Work Phone: 1(575)269[facility]11-05-2024 08:15-0500 Body pouoxjljgfo57.8 [degF]Giulia Man MD Work Phone: [facility]11-05-2024 08:15-0500 Diastolic blood mm[Hg]Giulia Man MD Work Phone: [facility]11-05-2024 08:15-0500 Heart rate80 /Debbie Man MD Work Phone: [facility]11-05-2024 08:15-0500 Respiratory rate16 /Debbie Man MD Work Phone: [facility]11-05-2024 08:15-0500 SaO2% (BldA) [Mass fraction]99 %Giulia Man MD Work Phone: [facility]11-05-2024 08:15-0500 Systolic blood jnncotev803 mm[Hg]Giulia Man MD Work Phone: [facility]11-04-2024 03:46-0500 Body witkup111 cmAnnjazmine Man MD Work Phone: [facility]11-04-2024 03:46-0500 Body mass index (BMI) [Ratio]44.29 kg/m2Giulia Man MD Work Phone: [facility]11-04-2024 03:46-0500 Body jlxsob794.4 kgGiulia Man MD Work Phone: [facility]11-04-2024 02:45-0500 Diastolic blood vhrjekrc00 mm[Hg]Bib Bowman MD Work Phone: 1(186)[address] [place], [place] 1592311-04-2024 02:45-0500 Heart rate84 /Alaina Bowman MD Work Phone: 1(586)[address] [place], [place] 9859011-04-2024 02:45-0500 Respiratory rate18 /Alaina Bowman MD Work Phone: 1(628)[address] [place], [place] 9859011-04-2024 02:45-0500 SaO2% (BldA) [Mass fraction]98 %Bib Bowman MD Work Phone: 1(155)346-[address] [place], [place] 1592311-04-2024 02:45-0500 Systolic blood bfeupllr648 mm[Hg]Bib Bowman MD Work Phone: 1(603)[address] [place], [place] 9859011-03-2024 16:46-0500 Body wgpahz798 cmPrawillie Bowman MD Work Phone: 1(684)[address] [place], [place] 9859011-03-2024 16:46-0500 Body mass index (BMI) [Ratio]44.29 kg/d4JnquhwoBib Bowman MD Work Phone: 1(125)[address] [place], [place] 9859011-03-2024 16:46-0500 Body pavgmugendx61.1 [degF]Bib Bowman MD Work Phone: 1(804)[address] [place], [place] 9859011-03-2024 16:46-0500 Body .4 kgBib Bowman MD Work Phone: 1(353)[address] [place], [place] 9859011-03-2024 11:48-0500 Body doiosm902.[address] [facility] [employer] Work Phone: [facility]11-03-2024 11:48-0500 Body btsxalzugfj23.6 [degF][facility] [employer] Work Phone: [facility]11-03-2024 11:48-0500 Body fsazpf874 kgServices [employer] Work Phone: [facility]11-03-2024 11:48-0500 Diastolic blood iobyrfph60 mm[Hg][facility] [employer] Work Phone: [facility]11-03-2024 11:48-0500 Heart rate80 /[facility]vorapromedica [facility] hospitalOceansblue Systems Work Phone: [facility]11-03-2024 11:48-0500 Respiratory rate16 /[employer] Work Phone: [facility]11-03-2024 11:48-0500 SaO2% (BldA) [Mass fraction]100 %[facility] [place] Work Phone: [facility]11-03-2024 11:48-0500 Systolic blood exlrwuck906 mm[Hg][facility] [place] Work Phone: [facility]11-02-2024 15:35-0400 Body sfoegumnajv26.88 [degF]Jorge Mcintosh [address] [place], [place] 9973411-02-2024 15:35-0400 Diastolic blood qefjjkrx72 mm[Hg]Jorge Mcintosh [address] [place], [place] 9880111-02-2024 15:35-0400Heart rate83 /Sulma Mcintosh [address] [place], [place] 9880111-02-2024 15:35-0400 Respiratory rate16 /minJorge Mcintosh [address] [place], [place] 9880111-02-2024 15:35-4866CnN3% (BldA) [Mass fraction]100 %Jorge Mcintosh [facility]11-02-2024 15:35-0400 Systolic blood vqyjvaxh971 mm[Hg]Jorge Mcintosh [address] [place], [place] 9880111-01-2024 20:19-0400 Diastolic blood ysvjggmw17 mm[Hg]Marlee Fitzpatrick MD Work Phone: [facility]11-01-2024 20:19-0400 Heart rate80 /Franck Fitzpatrick MD Work Phone: [facility]11-01-2024 20:19-0400 Respiratory rate18 /Franck Fitzpatrick MD Work Phone: [facility]11-01-2024 20:19-0400 SaO2% (BldA) [Mass fraction]99 %Marlee Fitzpatrick MD Work Phone: [facility]11-01-2024 20:19-0400 Systolic blood hnadxiaz670 mm[Hg]Marlee Fitzpatrick MD Work Phone: [facility]11-01-2024 19:50-0400 Body enhxyk071 cmMarlee Fitzpatrick MD Work Phone: 1(852)930[facility]11-01-2024 19:50-0400 Body mass index (BMI) [Ratio]44.29 kg/a1WwxognnrapaMarlee Fitzpatrick MD Work Phone: 1([phone])[phone]11-01-2024 19:50-0400 Body vdhguagucfh39.2 [degF]Marlee Fitzpatrick MD Work Phone: 1([phone]11-01-2024 19:50-0400 Body pnepxb367.4 kgMarlee Fitzpatrick MD Work Phone: [facility]10-31-2024 17:00-0400 Diastolic blood mm[Hg][facility] 01-23-2024 17:00-0400Mean blood bxyhgazl700 mm[Hg][facility]10-31-2024 17:00-0400Systolic blood cumcbnnf378 mm[Hg][facility]10-31-2024 16:00-0400Diastolic blood atafnyym39 mm[Hg][facility]10-31-2024 16:00-0400Mean blood njlqipov22 mm[Hg][facility]10-31-2024 16:00-0400Systolic blood spjmppyk973 mm[Hg][facility]10-31-2024 15:41-0400Diastolic blood ktdliwjd55 mm[Hg] [facility]10-31-2024 15:41-0400Mean blood ceborilm13 mm[Hg][facility]10-31-2024 15:41-0400Systolic blood dguzqwne007 mm[Hg][facility]10-31-2024 14:01-0400Body ggkqawiqdvi08.7 [degF][facility]10-31-2024 14:01-0400Heart rate88 /[facility]10-31-2024 14:01-0400Respiratory rate18 /[facility]-31-2024 14:01-8492TgD7% (BldA) [Mass fraction]98 %[facility]10-29-2024 17:30-0400Diastolic blood bykhsolr23 mm[Hg]Marlee Fitzpatrick MD Work Phone: 1(269)[address]10-29-2024 17:30-0400 Heart rate88 /Franck Fitzpatrick MD Work Phone: 1(395)[address]10-29-2024 17:30-0400 Respiratory rate16 /Franck Fitzpatrick MD Work Phone: 1(355)022-[address] [place], [place] 8072110-29-2024 17:30-0400 SaO2% (BldA) [Mass fraction]96 %Marlee Fitzpatrick MD Work Phone: 4(806)021-[address] [place], [place] 8072110-29-2024 17:30-0400 Systolic blood awkicquy870 mm[Hg]Marlee Fitzpatrick MD Work Phone: 1(767)292-[address] [place], [place] 8072110-29-2024 14:30-0400 Body wtxjio804 cmMarlee Fitzpatrick MD Work Phone: 1(191)[address]10-29-2024 14:30-0400 Body mass index (BMI) [Ratio]44.29 kg/g5ZfeliknlyytMarlee Fitzpatrick MD Work Phone: 1(968)371-[address] [place], [place] 8072110-29-2024 14:30-0400 Body mcfkjiwwedm87.4 [degF]Marlee Fitzpatrick MD Work Phone: [facility]10-29-2024 14:30-0400 Body ndwxyq538.4 kgMarlee Fitzpatrick MD Work Phone: [facility]10-24-2024 21:30-0400 Body aeoxxz159.02 cmSpromedica bay park hospitalOceansblue Systems Work Phone: 1(156)362-[address] [place], [place] 0882310-24-2024 21:30-0400 Body bbzfstkofvq73.8 [degF]Services [facility] [employer] Work Phone: 1(595)083-[address] [place], [place] 0882310-24-2024 21:30-0400 Body fmbrcu254.39 kgSerroxbury treatment center [employer] Work Phone: 1(141)975-[address] [place], [place] 0882310-24-2024 21:30-0400 Diastolic blood zluhuabj58 mm[Hg]Services [facility] [employer] Work Phone: 1(668)068-[address] [place], [place] 0882310-24-2024 21:30-0400 Heart rate85 /[facility] Work Phone: 1(217)481-[address] [place], [place] 0882310-24-2024 21:30-0400 Respiratory rate20 /[facility] [place] Work Phone: [phone] [place], [place] 0882310-24-2024 21:30-0400 SaO2% (BldA) [Mass fraction]98 %Services [facility] [employer] Work Phone: [phone] [place], [place] 0882310-24-2024 21:30-0400 Systolic blood mplzgedx703 mm[Hg]Services [facility] [employer] Work Phone: [phone] [place], [place] 0882310-22-2024 19:20-0400 Body zclaxtuinou49.06 [degF]Nikhil Tubbs [facility]10-22-2024 19:20-0400 Diastolic blood nlmnsehw74 mm[Hg]Nikhil Tubbs [facility]10-22-2024 19:20-0400Heart qgoj094 /minKevin Arley [facility]10-22-2024 19:20-0400 Respiratory rate20 /Lynette Tubbs [facility]10-22-2024 19:20-0983BqE6% (BldA) [Mass fraction]97 %Nikhil Arley [facility]10-22-2024 19:20-0400 Systolic blood qzguhbvc259 mm[Hg]Nikhil Arley [facility]10-22-2024 13:38-0400Body cmAclaudine Woodard MD Work Phone: [phone] [place], [place] 8453210-22-2024 13:38-0400 Body mass index (BMI) [Ratio]44.29 kg/x1PjrzsxkbJudah Woodard MD Work Phone: [phone] [place], [place] 8453210-22-2024 13:38-0400 Body mcgpdzhnvmy22.2 [degF]Judah Woodard MD Work Phone: 1(216)[address] [place], [place] 8453210-22-2024 13:38-0400 Body ludomz966.4 kgJudah Woodard MD Work Phone: 1(216)[address] [place], [place] 8453210-22-2024 13:38-0400 Diastolic blood ytkhhpei69 mm[Hg]Judah Woodard MD Work Phone: 1(216)[address] [place], [place] 8453210-22-2024 13:38-0400 Heart rate88 /minJudah Woodard MD Work Phone: 1(216)[address] [place], [place] 8453210-22-2024 13:38-0400 Systolic blood dusiudku771 mm[Hg]Judah Woodard MD Work Phone: 1(216)[address] [place], [place] 8453210-21-2024 13:51-0400 Body udtelf314 cmMarlee Fitzpatrick MD Work Phone: [facility]10-21-2024 13:51-0400 Body mass index (BMI) [Ratio]44.29 kg/h9JwxgbeyxscqMarlee Fitzpatrick MD Work Phone: 1(576)[address] [place], [place] 6245210-21-2024 13:51-0400 Body xqntdrydvdw28.9 [degF]Marlee Fitzpatrick MD Work Phone: 1(367)[address] [place], [place] 6245210-21-2024 13:51-0400 Body eeffkz830.4 kgMarlee Fitzpatrick MD Work Phone: 1(927)[address] [place], [place] 6245210-21-2024 13:51-0400 Diastolic blood ftsgvtmi50 mm[Hg]Marlee Fitzpatrick MD Work Phone: 1(540)[address] [place], [place] 6245210-21-2024 13:51-0400 Heart rate91 /Franck Fitzpatrick MD Work Phone: 1(838)[address] [place], [place] 6245210-21-2024 13:51-0400 Respiratory rate16 /Franck Fitzpatrick MD Work Phone: 1(287)[address] [place], [place] 6245210-21-2024 13:51-0400 SaO2% (BldA) [Mass fraction]96 %Marlee Fitzpatrick MD Work Phone: 1(235)[address] [place], [place] 6245210-21-2024 13:51-0400 Systolic blood faijzeam727 mm[Hg]Marlee Fitzpatrick MD Work Phone: 1(700)[address] [place], [place] 6245210-18-2024 22:00-0400 Diastolic blood twxhzewf53 mm[Hg]Marlee Fitzpatrick MD Work Phone: 1(818)[address] [place], [place] 6245210-18-2024 22:00-0400 Heart rate91 /Franck Fitzpatrick MD Work Phone: 1(927)[address] [place], [place] 6245210-18-2024 22:00-0400 Respiratory rate18 /Franck Fitzpatrick MD Work Phone: 1(312)[address] [place], [place] 6245210-18-2024 22:00-0400 SaO2% (BldA) [Mass fraction]96 %Marlee Fitzpatrick MD Work Phone: 1(640)370-[address] [place], [place] 8072110-18-2024 22:00-0400 Systolic blood mtdovatm393 mm[Hg]Marlee Fitzpatrick MD Work Phone: 1(546)[address]10-18-2024 18:16-0400 Body fealut390 cmMarlee Fitzpatrick MD Work Phone: 1(792)[address] [place], [place] 6245210-18-2024 18:16-0400 Body mass index (BMI) [Ratio]44.29 kg/j8JppkdnjnsimMarlee Fitzpatrick MD Work Phone: 1(365)[address] [place], [place] 6245210-18-2024 18:16-0400 Body ayuqdksfopb87.2 [degF]Marlee Fitzpatrick MD Work Phone: 1(165)[address]10-18-2024 18:16-0400 Body apyybh394.4 kgHarprisca Fitzpatrick MD Work Phone: 1(724)[address]10-16-2024 12:24-0400 Body kefqxmgvnah58.6 [degF]Ace Rodgers MD Work Phone: 1(174)[address] [place], [place] 9859010-16-2024 12:24-0400 Diastolic blood ndhfimxt740 mm[Hg]Ace Rodgers MD Work Phone: 1(980)[address] [place], [place] 9859010-16-2024 12:24-0400 Heart rate75 /Dov Rodgers MD Work Phone: 1(266)[address] [place], [place] 9859010-16-2024 12:24-0400 Respiratory rate17 /Dov Rodgers MD Work Phone: 1(636)[address] [place], [place] 9859010-16-2024 12:24-0400 SaO2% (BldA) [Mass fraction]94 %Ace Rodgers MD Work Phone: 1(425)[address] [place], [place] 9859010-16-2024 12:24-0400 Systolic blood vonlghuh303 mm[Hg]Ace Rodgers MD Work Phone: [facility]10-14-2024 17:14-0400 Body tbkbmo798 cmJoberto Rodgers MD Work Phone: [facility]10-14-2024 17:14-0400 Body mass index (BMI) [Ratio]44.29 kg/m1ChwlllAce Rodgers MD Work Phone: [facility]10-14-2024 17:14-0400 Body jdhojg305.4 kgJoberto Rodgers MD Work Phone: 1(638)301[facility]59[facility]10-14-2024 11:43-0400 Body iormwbyhmof74.06 [degF]Jorge Mcintosh [address]10-14-2024 11:43-0400 Diastolic blood ullzqucm95 mm[Hg]Jorge Rodrigueze [address] [place], [place] 9880110-14-2024 11:43-0400Heart rate83 /minJorge Mcintosh [address] [place], [place] 9880110-14-2024 11:43-0400 Respiratory rate18 /minJorge Mcintosh [address] [place], [place] 9880110-14-2024 11:43-6782WfI1% (BldA) [Mass fraction]97 %Jorge Arnaldo [address] [place], [place] 9880110-14-2024 11:43-0400 Systolic blood pneiymai001 mm[Hg]Jorge Mcintosh [address] [place], [place] 9880110-12-2024 12:16-0400Body lglleasrsyn65.7 [degF]Ace Rodgers MD Work Phone: [facility]10-12-2024 12:16-0400 Diastolic blood dykdahnq62 mm[Hg]Ace Rodgers MD Work Phone: 1(800)[address] [place], [place] 9859010-12-2024 12:16-0400 Heart rate87 /minAce Rodgers MD Work Phone: 1(123)[address] [place], [place] 9859010-12-2024 12:16-0400 Respiratory rate19 /minAce Rodgers MD Work Phone: 1(016)[address] [place], [place] 9859010-12-2024 12:16-0400 SaO2% (BldA) [Mass fraction]97 %Ace Rodgers MD Work Phone: 1(167)[address] [place], [place] 9859010-12-2024 12:16-0400 Systolic blood oaivmvjw278 mm[Hg]Ace Rodgers MD Work Phone: 1(925)[address] [place], [place] 9859010-09-2024 23:49-0400 Body qkesdh018 cmJoberto Rodgers MD Work Phone: 1(362)[address] [place], [place] 9859010-09-2024 23:49-0400 Body mass index (BMI) [Ratio]45.61 kg/i2QqqbquAce Rodgers MD Work Phone: 1(527)[address] [place], [place] 9859010-09-2024 23:49-0400 Body .8 kgJoberto Rodgers MD Work Phone: 1(927)[address] [place], [place] 9859010-07-2024 19:14-0400 Body xejhor599 cmNo Generic Provider [facility] 12-30-2023 19:14-0400Body mass index (BMI) [Ratio]44.64 kg/m2No Generic Provider [facility]10-07-2024 19:14-0400Body vrfpunykwmp18 [degF]No Generic Provider [facility]10-07-2024 19:14-0400Body zikeuj553.[address] [facility]10-07-2024 19:14-0400Diastolic blood iqypqnoh59 mm[Hg]No Generic Provider [facility]10-07-2024 19:14-0400Heart rate86 /minNo Generic Provider [facility]10-07-2024 19:14-0400 Respiratory rate16 /minNo Generic Provider [facility] 12-30-2023 19:14-6620KdX0% (BldA) [Mass fraction]98 %No Generic Provider [facility]10-07-2024 19:14-0400Systolic blood mm[Hg]No Generic Provider [facility]10-04-2024 13:45-0400Body cmElke Adams MD Work Phone: [phone])205-[address] [place], [place] 2901010-04-2024 13:45-0400 Body mass index (BMI) [Ratio]45.17 kg/v1RcynaggwElke Adams MD Work Phone: [phone])[address]10-04-2024 13:45-0400 Body fjkcuf755.67 kgElke Adams MD Work Phone: [phone])[address]10-04-2024 13:45-0400 Diastolic blood osgqcdtc64 mm[Hg]Elke Adams MD Work Phone: [phone])239-[address] [place], [place] 2901010-04-2024 13:45-0400 Heart rate91 /Claudine Adams MD Work Phone: [phone])773-[address] [place], [place] 2901010-04-2024 13:45-0400 Respiratory rate16 /Claudine Adams MD Work Phone: [phone])215-[address] [place], [place] 2901010-04-2024 13:45-0400 Systolic blood ppwynejc092 mm[Hg]Elke Adams MD Work Phone: [phone])457-[address] [place], [place] 2901010-03-2024 22:24-0400 Heart rate93 /Lynette Tubbs [facility]10-03-2024 22:24-0400 Respiratory rate18 /Lynette Tubbs [facility]10-03-2024 22:24-7937FwH8% (BldA) [Mass fraction]99 %Nikhil Tubbs [facility]10-03-2024 18:13-0400Body alrigasbasp25.24 [degF]Nikhil Tubbs [facility]10-03-2024 18:13-0400 Diastolic blood meorbysl91 mm[Hg]Nikhil Tubbs [address] [place], [place] 9880110-03-2024 18:13-0400Heart vhas371 /Lynette Tubbs [address] [place], [place] 9880110-03-2024 18:13-0400 Respiratory rate18 /minNikhil Tubbs [facility]10-03-2024 18:13-0906WbW5% (BldA) [Mass fraction]98 %Nikhil Tubbs [facility]10-03-2024 18:13-0400 Systolic blood yasuyvlr753 mm[Hg]Nikhil Tubbs [facility]10-03-2024 15:35-0400Body iqbmtz377.02 [facility]Sl[facility] [place] Work Phone: [facility]10-03-2024 15:35-0400 Body kbowjolhrzi36.9 [degF]Services [facility] [employer] Work Phone: [facility]10-03-2024 15:35-0400 Body .1 [facility] [place] Work Phone: [facility]10-03-2024 15:35-0400 Diastolic blood niwbdmsx18 mm[Hg]Services [employer] Work Phone: [facility]10-03-2024 15:35-0400 Heart rate95 /[facility] Work Phone: [facility]10-03-2024 15:35-0400 Respiratory rate17 /[facility] [employer] Work Phone: [facility]10-03-2024 15:35-0400 SaO2% (BldA) [Mass fraction]98 %Services [facility] Work Phone: [facility]10-03-2024 15:35-0400 Systolic blood bpinscja394 mm[Hg]Services [place] Work Phone: [facility]10-01-2024 16:53-0400 Diastolic blood cdxkxsih56 mm[Hg][facility] 12-24-2023 16:53-0400Heart rate83 /[facility]10-01-2024 16:53-0400Mean blood dvepjbuf848 mm[Hg][facility]10-01-2024 16:53-0400Respiratory rate19 /[facility]-01-2024 16:53-7786FkW4% (BldA) [Mass fraction]98 %[facility]10-01-2024 16:53-0400Systolic blood aeijvnrj420 mm[Hg][facility]10-01-2024 16:00-0400Diastolic blood mm[Hg][facility]10-01-2024 16:00-0400Heart rate89 /[facility]10-01-2024 16:00-0400Mean blood fghahfzf904 mm[Hg][facility]10-01-2024 16:00-4006HeG1% (BldA) [Mass fraction]99 %[facility]10-01-2024 14:27-0400Body pfmpojzruap26.24 [degF][facility]10-01-2024 14:27-0400Diastolic blood irmnitpq60 mm[Hg][facility]10-01-2024 14:27-0400Heart rate68 /[facility]-01-2024 14:27-0400Respiratory rate20 /[facility]10-01-2024 14:27-6206EpC9% (BldA) [Mass fraction]94 %[facility]10-01-2024 14:27-0400Systolic blood pressure 174 mm[Hg][facility]10-01-2024 10:44-0400Body oiieag575 Nusrat Joseph MD Work Phone: 1(216)[address]10-01-2024 10:44-0400 Body mass index (BMI) [Ratio]45.17 kg/e6DrgehyChidi Joseph MD Work Phone: 1(216)[address] [place], [place] 2726010-01-2024 10:44-0400 Body ghnrbspoynk32.29 [degF]Chidi Joseph MD Work Phone: 1(216)[address] [place], [place] 2726010-01-2024 10:44-0400 Body .67 kgChidi Joseph MD Work Phone: 1(216)[facility] [place], [place] 7375510-01-2024 10:44-0400 Diastolic blood acrabxxn90 mm[Hg]Chidi Joseph MD Work Phone: 1(216)[address]10-01-2024 10:44-0400 Heart rate66 /minChidi Joseph MD Work Phone: 1(216)233-[address] [place], [place] 7375510-01-2024 10:44-0400 Systolic blood truqafgt687 mm[Hg]Chidi Joseph MD Work Phone: 1(216)[address] [place], [place] 2726009-28-2024 21:28-0400 Diastolic blood bfklotav00 mm[Hg]No Generic Provider [facility]09-28-2024 21:28-0400Heart rate92 /minNo Generic Provider [facility]09-28-2024 21:28-0400Respiratory rate18 /minNo Generic Provider [facility]09-28-2024 21:28-4042RjF1% (BldA) [Mass fraction]97 %No Generic Provider [facility] 12-21-2023 21:28-0400Systolic blood utnznjor800 mm[Hg]No Generic Provider [facility]09-28-2024 21:15-0400Body jntqoj581 cmNo [address] [facility]09-28-2024 21:15-0400Body mass index (BMI) [Ratio]44.29 kg/m2No Generic Provider [facility]09-28-2024 21:15-0400Body hxxeplmubgw36.3 [degF]No Generic Provider [facility]09-28-2024 21:15-0400Body gkqeon678.[address] [facility]09-26-2024 05:31-0400Body vxcrtvddviu24.69 [degF]Fatou Tellez MD Work Phone: 1(615)231-[facility]09-26-2024 05:31-0400 Diastolic blood rixlqfey44 mm[Hg]Fatou Tellez MD Work Phone: [facility]09-26-2024 05:31-0400 Heart rate75 /Gisselle Tellez MD Work Phone: 1(658)370[facility]-26-2024 05:31-0400 Respiratory rate18 /Gisselle Tellez MD Work Phone: [facility]09-26-2024 05:31-0400 SaO2% (BldA) [Mass fraction]97 %Fatou Tellez MD Work Phone: [facility]09-26-2024 05:31-0400 Systolic blood lphbxwwu029 mm[Hg]Fatou Tellez MD Work Phone: 1(218)798-[address] [place], [place] 7482409-25-2024 13:14-0400 Body kmspon439 cmRash Tellez MD Work Phone: 1(844)439-[address] [place], [place] 7482409-25-2024 13:14-0400 Body mass index (BMI) [Ratio]44.29 kg/m2Fatou Tellez MD Work Phone: 1216)358-[address] [place], [place] 7482409-25-2024 13:14-0400 Body ydfufd155.4 Blair Tellez MD Work Phone: 1216)[address] [place], [place] 2360409-22-2024 18:30-0400 Diastolic blood nduzgkpu51 mm[Hg]Lilia Geronimo MD Work Phone: 1216)[address] [place], [place] 2360409-22-2024 18:30-0400 Heart rate76 /Tawanda Geronimo MD Work Phone: 1)[address] [place], [place] 2360409-22-2024 18:30-0400 Respiratory rate18 /Tawanda Geronimo MD Work Phone: 1()[address] [place], [place] 2360409-22-2024 18:30-0400 SaO2% (BldA) [Mass fraction]95 %Lilia Geronimo MD Work Phone: 1()[address] [place], [place] 2360409-22-2024 18:30-0400 Systolic blood fpamvtgf250 mm[Hg]Lilia Geronimo MD Work Phone: 1)[facility] [place], [place] 7482409-22-2024 17:25-0400 Body fzticy448 cmLreedren Sadie SOTO Work Phone: 1)[facility] [place], [place] 7482409-22-2024 17:25-0400 Body mass index (BMI) [Ratio]44.29 kg/m1DfdzqrLilia Geronimo MD Work Phone: 1(216)1-[address] [place], [place] 7482409-22-2024 17:25-0400 Body xtkyjxyyoqt65.9 [degF]Lilia Geroniom MD Work Phone: 12163-[address] [place], [place] 7482409-22-2024 17:25-0400 Body .4 Dianna Geronimo MD Work Phone: 1216)[facility] [place], [place] 7482409-20-2024 21:38-0400 Diastolic blood iluagtft58 mm[Hg]No Generic Provider [facility]09-20-2024 21:38-0400Heart rate83 /minNo Generic Provider [facility]09-20-2024 21:38-0400Respiratory rate18 /minNo Generic Provider [facility]09-20-2024 21:38-7064TkN5% (BldA) [Mass fraction]97 %No Generic Provider [facility] 12-13-2023 21:38-0400Systolic blood xgzyaibk522 mm[Hg]No Generic Provider [facility]09-20-2024 20:12-0400Body ffowvu386 cmNo Generic Provider [facility]09-20-2024 20:12-0400Body mass index (BMI) [Ratio]44.29 kg/m2No Generic Provider [facility]09-20-2024 20:12-0400Body nqxpiktuypz35 [degF]No Generic Provider [facility]09-20-2024 20:12-0400Body zjwlke543.[address] [facility]09-20-2024 13:40-0400Body ycaqfndrotg87.42 [degF]Jorge Mcintosh [facility]09-20-2024 13:40-0400 Diastolic blood mm[Hg]Jorge Mcintosh [facility]09-20-2024 13:40-0400Heart rate91 /minRoyamillicent Mcintosh [facility]09-20-2024 13:40-0400 Respiratory rate18 /minJomillicent Mcintosh [facility]09-20-2024 13:40-6668WxH1% (BldA) [Mass fraction]99 %Jorge Mcintosh [facility]09-20-2024 13:40-0400 Systolic blood udhbmmhg649 mm[Hg]Jorge Mcnitosh [facility]09-20-2024 09:37-0400Body fmydvj269 cmJennifer Sweet MD Work Phone: [facility]09-20-2024 09:37-0400 Body mass index (BMI) [Ratio]44.29 kg/h9ZfdgfterElke Adams MD Work Phone: [facility]09-20-2024 09:37-0400 Body piwgphpwsed35.9 [degF]Elke Adams MD Work Phone: 1(427)038-[address] [place], [place] 1102309-20-2024 09:37-0400 Body gnjzij052.4 kgElke Adams MD Work Phone: 1(271)610-[address] [place], [place] 1102309-20-2024 09:37-0400 Heart rate96 /Claudine Adams MD Work Phone: [facility]09-20-2024 09:37-0400 Respiratory rate18 /Claudine Adams MD Work Phone: 1(272)892-[address] [place], [place] 1102309-19-2024 18:58-0400 Body vlxweu664.02 cmServOceansblue Systems Work Phone: [facility]09-19-2024 18:58-0400 Body ajvckvaekst10.2 [degF]Services [place] Work Phone: [facility]09-19-2024 18:58-0400 Body fndevr899 kgServices [employer] Work Phone: [facility]09-19-2024 18:58-0400 Diastolic blood mm[Hg]Services [place] Work Phone: [facility]09-19-2024 18:58-0400 Heart rate92 /[employer]SChameleon [employer] Work Phone: [facility]09-19-2024 18:58-0400 Respiratory rate18 /[facility] Work Phone: [facility]09-19-2024 18:58-0400 SaO2% (BldA) [Mass fraction]99 %Services [facility] Work Phone: [facility]09-19-2024 18:58-0400 Systolic blood nhobdzlj174 mm[Hg]Services [place] Work Phone: 1(027)[address]09-18-2024 15:17-0400 Body rromnzasbxp05.8 [degF]Felice Veliz [employer] Work Phone: 1(949)667-[facility]09-18-2024 15:17-0400 Diastolic blood cxymjuqi34 mm[Hg]Felice Veliz [employer]NALYST Work Phone: 1(341)917-[facility]09-18-2024 15:17-0400 Heart rate87 /minFelice Veliz H[employer]ER[employer]IVER ANALYST Work Phone: 1(853)[address]09-18-2024 15:17-0400 Respiratory rate18 /minFelice Veliz H[employer]ER[employer]IVER ANALYST Work Phone: 1(126)493-[address] [place], [place] 0628109-18-2024 15:17-0400 SaO2% (BldA) [Mass fraction]100 %Felice Veliz H[employer]ER[employer]WAIVER ANALYST Work Phone: [facility]09-18-2024 15:17-0400 Systolic blood fmnpehpa118 mm[Hg]Felice Veliz H[employer]ER[employer]WAIVER ANALYST Work Phone: [facility]09-18-2024 11:20-0400 Body imozpn838 cmAlexa Jose Alfredo H[employer]ER[employer]WAIVER ANALYST Work Phone: 1(220)898-[facility]09-18-2024 11:20-0400 Body mass index (BMI) [Ratio]44.29 kg/n1ZttxjFelice Veliz H[employer]ER[employer]WAIVER ANALYST Work Phone: 1(823)607-[address] [place], [place] 0628109-18-2024 11:20-0400 Body .4 kgFelice Veliz H[employer]ER[employer]WAIVER ANALYST Work Phone: 1(816)[address]09-17-2024 05:38-0400 Diastolic blood jfnwfuqg51 mm[Hg]Declan Laureano MD Work Phone: [facility]09-17-2024 05:38-0400 Heart rate72 /Edward Laureano MD Work Phone: [address] [place], [place] 7472709-17-2024 05:38-0400 Respiratory rate18 /Edward Laureano MD Work Phone: 1216)[address] [place], [place] 7472709-17-2024 05:38-0400 SaO2% (BldA) [Mass fraction]97 %Declan Laureano MD Work Phone: 1216)[address] [place], [place] 7472709-17-2024 05:38-0400 Systolic blood ntaaipti524 mm[Hg]Declan Laureano MD Work Phone: 1)[address] [place], [place] 7472709-16-2024 18:36-0400 Body duexpq371 cmDeclan Laureano MD Work Phone: 1)[address] [place], [place] 7472709-16-2024 18:36-0400 Body mass index (BMI) [Ratio]44.29 kg/h7BprlnjsDeclan Laureano MD Work Phone: 1()[address] [place], [place] 7472709-16-2024 18:36-0400 Body vxcerpzcbwr95.7 [degF]Declan Laureano MD Work Phone: 1)[address] [place], [place] 7472709-16-2024 18:36-0400 Body pjnabz279.4 kgDeclan Laureano MD Work Phone: [address] [place], [place] 7472709-16-2024 15:56-0400 Diastolic blood aysaqgtb50 mm[Hg]Jarocho Delatorre DO Work Phone: [facility]09-16-2024 15:56-0400 Heart rate66 /Renee Delatorre DO Work Phone: [facility]09-16-2024 15:56-0400 Respiratory rate16 /Renee Delatorre DO Work Phone: [facility]09-16-2024 15:56-0400 SaO2% (BldA) [Mass fraction]97 %Jarocho Delatorre DO Work Phone: 1(236)495-[address] [place], [place] 1592309-16-2024 15:56-0400 Systolic blood qvfhjzma973 mm[Hg]Jarocho Delatorre DO Work Phone: 1(098)[address]09-16-2024 13:34-0400 Body qjgbud254 cmRmarkesdras YangDelatorre DO Work Phone: 1(665)[address] [place], [place] 9859009-16-2024 13:34-0400 Body mass index (BMI) [Ratio]44.29 kg/e9HuhufshJarocho Delatorre DO Work Phone: 1(150)[address] [place], [place] 9859009-16-2024 13:34-0400 Body xovyhttsidc80.9 [degF]Jarocho Delatorre DO Work Phone: 1(502)[address] [place], [place] 9859009-16-2024 13:34-0400 Body dzzpug645.4 kgJarocho Delatorre DO Work Phone: 1(945)[address]09-14-2024 17:50-0400 Diastolic blood mkodgiqi78 mm[Hg]Maggie Degroot MD Work Phone: [address] [place], [place] 7472709-14-2024 17:50-0400 Heart rate77 /Mich Degroot MD Work Phone: [address] [place], [place] 7472709-14-2024 17:50-0400 Respiratory rate16 /Mich Degroot MD Work Phone: [address] [place], [place] 7472709-14-2024 17:50-0400 SaO2% (BldA) [Mass fraction]99 %Maggie Degroot MD Work Phone: 1216)[address] [place], [place] 7472709-14-2024 17:50-0400 Systolic blood idduqhdr616 mm[Hg]Maggie Degroot MD Work Phone: [address] [place], [place] 7472709-14-2024 13:17-0400 Body mmjram313 Raisa Degroot MD Work Phone: [address] [place], [place] 7472709-14-2024 13:17-0400 Body mass index (BMI) [Ratio]44.29 kg/p5BlrpnMaggie Degroot MD Work Phone: 1(216)846-[facility]09-14-2024 13:17-0400 Body guipxdcjoeb71.8 [degF]Maggie Degroot MD Work Phone: 1(216)[address]09-14-2024 13:17-0400 Body .4 Jona Degroot MD Work Phone: 1(216)[address]09-13-2024 22:20-0400 Body ljyxcmhwmcg14.59 [degF]Nehemiah Dyer MD Work Phone: 1()[address]09-13-2024 22:20-0400 Diastolic blood xvwprobr63 mm[Hg]Nehemiah Dyer MD Work Phone: 1()[address] [place], [place] 2360409-13-2024 22:20-0400 Heart rate82 /Bianka Dyer MD Work Phone: 1()[address] [place], [place] 2360409-13-2024 22:20-0400 Respiratory rate17 /Bianka Dyer MD Work Phone: 1()[address] [place], [place] 2360409-13-2024 22:20-0400 SaO2% (BldA) [Mass fraction]94 %Nehemiah Dyer MD Work Phone: 1()[address] [place], [place] 2360409-13-2024 22:20-0400 Systolic blood ruokfdtj572 mm[Hg]Nehemiah Dyer MD Work Phone: 1(216)6-[address] [place], [place] 7482409-13-2024 13:37-0400 Body cmSelise Dyer MD Work Phone: 1(216)2-[address] [place], [place] 7482409-13-2024 13:37-0400 Body mass index (BMI) [Ratio]44.29 kg/q4IlazarNehemiah Dyer MD Work Phone: 1(216)841-[address] [place], [place] 7482409-13-2024 13:37-0400 Body xfuvhf527.4 Jack Dyer MD Work Phone: [facility]09-13-2024 11:55-0400 Body kbsean559 cmElke Adams MD Work Phone: [facility]09-13-2024 11:55-0400 Body mass index (BMI) [Ratio]44.29 kg/w3ZejojkhyElke Adams MD Work Phone: [facility]09-13-2024 11:55-0400 Body cazytilqfzn14.9 [degF]Elke Adams MD Work Phone: [facility]09-13-2024 11:55-0400 Body rqobql847.4 kgElke Adams MD Work Phone: [facility]09-13-2024 11:55-0400 Diastolic blood uffupuom93 mm[Hg]Elke Adams MD Work Phone: [facility]09-13-2024 11:55-0400 Heart rate97 /Claudine Adams MD Work Phone: [facility]09-13-2024 11:55-0400 Systolic blood yhetuezm538 mm[Hg]Elke Adams MD Work Phone: [facility]09-12-2024 17:44-0400 Body gbctxjkuylw04.06 [degF]Nikhil Tubbs [facility]09-12-2024 17:44-0400 Diastolic blood gygxahvm05 mm[Hg]Nikhil Tubbs [facility]09-12-2024 17:44-0400Heart rate94 /Lynette Tubbs [facility]09-12-2024 17:44-0400 Respiratory rate18 /Lynette Tubbs [facility]09-12-2024 17:44-4087ZkF6% (BldA) [Mass fraction]97 %Nikhil Tubbs [facility]09-12-2024 17:44-0400 Systolic blood ifpzujmz584 mm[Hg]Nikhil Tubbs [facility]09-11-2024 23:01-0400 Diastolic blood bbcfrvmu60 mm[Hg][facility]rbina [id number] 23:01-0400Heart rate77 /min Ben Urbina MD [facility] Phone[id number] 23:01-0400Respiratory rate16 /minBen Urbina MD Work Phone: [facility] HospitalKaybxj36-92-5241 23:01-7811LhF1% (BldA) [Mass fraction]96 %Ben Urbina MD Work Phone: [facility] HospitalDrzqwa31-04-0425 23:01-0400Systolic blood rgrawehc602 mm[Hg]Ben Urbina MD Work Phone: [facility] HospitalEetwjv32-97-6012 21:54-0400Body hdfire589 cm Ben Urbina MD Work Phone: [facility] HospitalTygraw04-57-7115 21:54-0400Body mass index (BMI) [Ratio]44.29 kg/y7CpzrsuBen Urbina MD Work Phone: [facility] HospitalSjnwcw68-39-3794 21:54-0400Body temperature 98.2 [degF]Ben Urbina MD Work Phone: [facility] HospitalGniudb22-00-8862 21:54-0400Body dovdmz003.4 kg Ben Urbina MD Work Phone: [facility] HospitalGvbqjz01-78-0852 01:30-0400Diastolic blood mm[Hg][facility] Work Phone: [facility]09-09-2024 01:30-0400 Heart rate74 /minServices [place] Work Phone: [facility]09-09-2024 01:30-0400 Respiratory rate18 /minServices [place] Work Phone: [phone]-[facility]-09-2024 01:30-0400 SaO2% (BldA) [Mass fraction]96 %Services [place] Work Phone: [phone]-[facility]09-09-2024 01:30-0400 Systolic blood jsatboyu793 mm[Hg]Services [place] Work Phone: [phone]-[facility]09-08-2024 19:36-0400 Body rtodum047.02 cmSpromedica bay park hospitalices [place] Work Phone: [phone])521-[address] [place], [place] 0882309-08-2024 19:36-0400 Body hdpkrlmorsk58.2 [degF]Services [place] Work Phone: [phone]-[facility]09-08-2024 19:36-0400 Body .5 kgSerSpotsylvania [facility] Medical [facility] Work Phone: [phone])671-[address] [place], [place] 0882309-08-2024 11:53-0400 Body lslhaxwqghf75.88 [degF][facility] 12-01-2023 11:53-0400Diastolic blood mm[Hg][facility]09-08-2024 11:53-0400Heart rate72 /[facility]09-08-2024 11:53-0400Respiratory rate18 /[facility]-08-2024 11:53-6481MyX9% (BldA) [Mass fraction]97 %[facility]09-08-2024 11:53-0400Systolic blood hzuxkfmk941 mm[Hg][facility]09-06-2024 08:38-0400Body cmElke Adams MD Work Phone: [facility]09-06-2024 08:38-0400 Body mass index (BMI) [Ratio]44.29 kg/c5IerkzcvzElke Adams MD Work Phone: [facility]09-06-2024 08:38-0400 Body bquethzpwck41.59 [degF]Elke Adams MD Work Phone: [facility]09-06-2024 08:38-0400 Body .4 kgElke Adams MD Work Phone: 1(821)528-[address] [place], [place] 1102309-06-2024 08:38-0400 Diastolic blood ouctvcem65 mm[Hg]Elke Adams MD Work Phone: [facility]09-06-2024 08:38-0400 Heart rate75 /minElke Adams MD Work Phone: [facility]09-06-2024 08:38-0400 Systolic blood bapvxldq811 mm[Hg]Elke Adams MD Work Phone: [phone] [place], [place] 1102309-04-2024 19:47-0400 Diastolic blood btytuhvt80 mm[Hg][facility] 11-27-2023 19:47-0400Heart rate79 /[facility]09-04-2024 19:47-0400Respiratory rate18 /[facility]09-04-2024 19:47-0001RvT7% (BldA) [Mass fraction]98 %[facility]09-04-2024 19:47-0400Systolic blood pressure 143 mm[Hg][facility]09-04-2024 17:51-0400Body razxpeyludg01.24 [degF][facility]09-04-2024 17:51-0400Diastolic blood somxiiex13 mm[Hg][facility]09-04-2024 17:51-0400Heart uftc365 /[facility]Ast[facility]-2024 17:51-0400Respiratory rate15 /[facility]09-04-2024 17:51-5524TaI9% (BldA) [Mass fraction]97 %[facility]09-04-2024 17:51-0400Systolic blood pressure 120 mm[Hg][facility]09-03-2024 23:48-0400 Respiratory rate18 /minNo [facility]09-03-2024 21:50-0400 Body jdenrj155.02 cmNo [facility]09-03-2024 21:50-0400Body mass index (BMI) [Ratio]44.6 kg/m2No [facility]09-03-2024 21:50-0400Body .7 [degF]No [facility]09-03-2024 21:50-0400Body fubyik210.4 kgNo [facility]09-03-2024 21:50-0400Diastolic blood jyypsjsa36 mm[Hg]No [facility] 11-26-2023 21:50-0400Heart rate67 /minNo [facility] 11-26-2023 21:50-4831WlO6% (BldA) [Mass fraction]98 %No [facility]09-03-2024 21:50-0400Systolic blood aymmjdfn818 mm[Hg]No [facility]09-02-2024 20:33-0400Diastolic blood rdbttwyy29 mm[Hg]Services [employer] Work Phone: [facility]09-02-2024 20:33-0400 Heart rate78 /[employer] Work Phone: [facility]09-02-2024 20:33-0400 Respiratory rate18 /[facility] [employer] Work Phone: [facility]09-02-2024 20:33-0400 SaO2% (BldA) [Mass fraction]97 %Services [place] Work Phone: [facility]09-02-2024 20:33-0400 Systolic blood lmivzeil525 mm[Hg]Services [place] Work Phone: [facility]09-02-2024 18:54-0400 Body .02 cmServices [place] Work Phone: [facility]09-02-2024 18:54-0400 Body nvosxfdueoc94.2 [degF]Services [place] Work Phone: [facility]09-02-2024 18:54-0400 Body rhljoy117.7 kgSerdaniel freeman memorial hospitales [place] Work Phone: [facility]09-01-2024 13:42-0400 Body hrucadvttim41.06 [degF][facility] 11-24-2023 13:42-0400Diastolic blood abwzceil90 mm[Hg][facility]09-01-2024 13:42-0400Heart rate93 /minCity [facility]09-01-2024 13:42-0400Respiratory rate19 /[facility]09-01-2024 13:42-7166MsC1% (BldA) [Mass fraction]98 %[facility]09-01-2024 13:42-0400Systolic blood xrpcaxsd744 mm[Hg][facility]08-30-2024 13:00-0400Body evanzb079 cmElke Adams MD Work Phone: [facility]08-30-2024 13:00-0400 Body mass index (BMI) [Ratio]44.29 kg/v2QqnwnfzuElke Adams MD Work Phone: [facility]08-30-2024 13:00-0400 Body imsuncyyaqx66.7 [degF]Elke Adams MD Work Phone: [phone]08-30-2024 13:00-0400 Body sppbvy804.4 kgElke Adams MD Work Phone: [phone])523-[address] [place], [place] 2901008-30-2024 13:00-0400 Diastolic blood qzspyksb24 mm[Hg]Elke Adams MD Work Phone: [phone])194-[address] [place], [place] 2901008-30-2024 13:00-0400 Heart rate85 /Claudine Adams MD Work Phone: [phone])333-[address] [place], [place] 2901008-30-2024 13:00-0400 Respiratory rate18 /Claudine Adams MD Work Phone: [phone])928-[address] [place], [place] 2901008-30-2024 13:00-0400 Systolic blood mdveybey491 mm[Hg]Elke Adams MD Work Phone: [phone])[address]08-27-2024 07:12-0400 Body gbqxmeaacgn09.2 [degF]Cristobal Jessica MD Work Phone: [phone])819-[address] [place], [place] 7482408-27-2024 07:12-0400 Diastolic blood tpfoxxuw69 mm[Hg]Cristobal Jessica MD Work Phone: 12167-[address] [place], [place] 7482408-27-2024 07:12-0400 Heart rate72 /Arden Jessica MD Work Phone: [phone])059-[address] [place], [place] 7482408-27-2024 07:12-0400 Respiratory rate18 /Arden Jessica MD Work Phone: [phone])081-[address] [place], [place] 7482408-27-2024 07:12-0400 SaO2% (BldA) [Mass fraction]97 %Cristobal Jessica MD Work Phone: [phone])358-[address] [place], [place] 7482408-27-2024 07:12-0400 Systolic blood wfintfbp334 mm[Hg]Cristobal Jessica MD Work Phone: [phone])824-[address] [place], [place] 7482408-21-2024 04:40-0400 Body ocncvr109 Maria Antonia Bernaler MD Work Phone: [facility]08-21-2024 04:40-0400 Body mass index (BMI) [Ratio]44.29 kg/e1NbbihpurCristobal Jessica MD Work Phone: [facility]08-21-2024 04:40-0400 Body iscfag918.4 kgCristobal Jessica MD Work Phone: [phone]-[facility]08-18-2024 23:39-0400 Diastolic blood mm[Hg]Services [facility] [employer] Work Phone: 1(752)577-[address] [place], [place] 0882308-18-2024 23:39-0400 Heart rate97 /Nuevorapromedica bay park hospitalNukotoys [facility] Work Phone: 1(099)107-[address] [place], [place] 0882308-18-2024 23:39-0400 Respiratory rate20 /[facility] [employer] [facility] Work Phone: 1(654)374-[address] [place], [place] 0882308-18-2024 23:39-0400 Systolic blood bszciuke955 mm[Hg]Services [facility] [employer] Work Phone: 1(680)559-[address] [place], [place] 0882308-18-2024 22:44-0400 SaO2% (BldA) [Mass fraction]95 %Services [facility] [employer] Work Phone: [facility]08-18-2024 18:38-0400 Body kljyav301.02 cmSSCCI [facility] Work Phone: 1([phone]-[facility]08-18-2024 18:38-0400 Body iisravdmjit16.9 [degF]Services [place] Work Phone: 1([phone])867-[facility]08-18-2024 18:38-0400 Body vbefih898 kgServicWellmont L[facility] Work Phone: [facility]08-17-2024 23:46-0400 Body vunjdmoakcs57.5 [degF]iFsh Ruiz MD Work Phone: [facility]08-17-2024 23:46-0400 Diastolic blood qoembwhs88 mm[Hg]Fish Ruiz MD Work Phone: [phone])480-[address] [place], [place] 7482408-17-2024 23:46-0400 Heart rate92 /Vimal Ruiz MD Work Phone: 12160-[address] [place], [place] 7482408-17-2024 23:46-0400 Respiratory rate16 /Vimal Ruiz MD Work Phone: 12167-[address] [place], [place] 7482408-17-2024 23:46-0400 Systolic blood uvfjxrwa238 mm[Hg]Fish Ruiz MD Work Phone: [address]08-17-2024 20:35-0400 Body gybuql942 cmFish Ruiz MD Work Phone: 1(458)[address]08-17-2024 20:35-0400 Body mass index (BMI) [Ratio]44.29 kg/t4PjenicFish Ruiz MD Work Phone: 1(834)[address]08-17-2024 20:35-0400 Body .4 kgFish Ruiz MD Work Phone: 1(785)0-[address] [place], [place] 7482408-17-2024 20:35-0400 SaO2% (BldA) [Mass fraction]95 %Fish Ruiz MD Work Phone: 1(926)9-[address] [place], [place] 7482408-17-2024 17:07-0400 Diastolic blood mm[Hg]Jarocho Delaotrre DO Work Phone: 1(726)6-[address] [place], [place] 1592308-17-2024 17:07-0400 Systolic blood yuqhpkha268 mm[Hg]Jarocho Yangersen DO Work Phone: 1(367)226-[address] [place], [place] 1592308-17-2024 16:59-0400 Heart rate88 /Renee Yangersen DO Work Phone: 1(970)549-[address] [place], [place] 1592308-17-2024 16:59-0400 Respiratory rate18 /Renee Delatorre DO Work Phone: 1(071)497-[address] [place], [place] 1592308-17-2024 16:59-0400 SaO2% (BldA) [Mass fraction]96 %Jarocho Delatorre DO Work Phone: [address] [place], [place] 2435108-17-2024 13:13-0400 Body atfybr517 cmRmoris Yangersen DO Work Phone: 1(869)925-[address] [place], [place] 1592308-17-2024 13:13-0400 Body mass index (BMI) [Ratio]44.29 kg/b2KltmnbhJarocho Delatorre DO Work Phone: 1(253)190-[address] [place], [place] 1592308-17-2024 13:13-0400 Body flxrvricgkk43.4 [degF]Jarocho Delatorre DO Work Phone: 1(846)254-[address] [place], [place] 1592308-17-2024 13:13-0400 Body aoepez522.4 kgJarocho Delatorre DO Work Phone: [phone])[address]08-16-2024 13:00-0400 Body unhnvv799 cmElke Adams MD Work Phone: [phone]08-16-2024 13:00-0400 Body mass index (BMI) [Ratio]44.64 kg/b1DjkjcmgwElke Adams MD Work Phone: 1(713)[address]08-16-2024 13:00-0400 Body fwbixjribnn21.4 [degF]Elke Adams MD Work Phone: 1(563)[address] [place], [place] 7080608-16-2024 13:00-0400 Body ubnvdl381.31 kgElke Adams MD Work Phone: [phone])[address]08-16-2024 13:00-0400 Diastolic blood qcpadift99 mm[Hg]Elke Adams MD Work Phone: 1(745)[address]08-16-2024 13:00-0400 Heart rate87 /Claudine Adams MD Work Phone: 1(914)[address] [place], [place] 6261208-16-2024 13:00-0400 Respiratory rate20 /Claudine Adams MD Work Phone: [facility]08-16-2024 13:00-0400 Systolic blood qcerzrfr426 mm[Hg]Elke Adams MD Work Phone: [facility]08-13-2024 19:45-0400 Body uvmkngsfzzo89.06 [degF]Pedro Pablo Chance [facility]08-13-2024 19:45-0400 Diastolic blood wglviqgn38 mm[Hg]Pedro Pablo [facility]08-13-2024 19:45-0400Heart rate74 /minNoah Chance [address] [place], [place] 988[address]08-13-2024 19:45-0400 Respiratory rate18 /minNoah Chance [facility]08-13-2024 19:45-2059UkR9% (BldA) [Mass fraction]95 %Pedro Pablo Chance [facility]08-13-2024 19:45-0400 Systolic blood thvgebyr780 mm[Hg]Pedro Pablo Chance [facility]08-09-2024 09:17-0400Body nbiffxjotqo07.1 [degF]Elke Adams MD Work Phone: [facility]08-09-2024 09:17-0400 Diastolic blood mm[Hg]Elke Adams MD Work Phone: [facility]08-09-2024 09:17-0400 Heart rate83 /Claudine Adams MD Work Phone: [facility]08-09-2024 09:17-0400 Respiratory rate18 /Claudine Adams MD Work Phone: [facility]08-09-2024 09:17-0400 SaO2% (BldA) [Mass fraction]97 %Elke Adams MD Work Phone: [facility]08-09-2024 09:17-0400 Systolic blood ibvxoijz696 mm[Hg]Elke Adams MD Work Phone: [facility]08-08-2024 02:39-0400 Body lemzgt451 cmElke Adams MD Work Phone: [facility]08-08-2024 02:39-0400 Body mass index (BMI) [Ratio]44.29 kg/d0WudaobszElke Adams MD Work Phone: [facility]08-08-2024 02:39-0400 Body lxdduf330.4 kgElke Adams MD Work Phone: [facility]08-08-2024 00:00-0400 Diastolic blood vyrxwqds92 mm[Hg]Aaliyah Fischer I, DO Work Phone: [employer] [facility] HOS[facility]ITALThucyASTBGK33-93-1690 00:00-0400Heart rate69 /Tenzin Fischer I, DO Work Phone: [employer] [facility]ITALThucyRQMHGY61-32-8120 00:00-0400 Respiratory rate19 /minAaliyah Fischer I, DO Work Phone: [employer] [facility] HOS[facility]ITALThucyQJCKBV65-78-4899 00:00-7274UrV4% (BldA) [Mass fraction]96 %Aaliyah Fischer I, DO Work Phone: [facility] CENTERSaleStream [facility]OS[facility]ITALThucyWGQFPH93-23-6373 00:00-0400Systolic blood czliacxh716 mm[Hg]Aaliyah Fischer I, DO Work Phone: [employer] [facility]ITALThucyIOQDAC02-02-8187 20:06-0400Body dgxuazsltob90.7 [degF]Aaliyah Fischer I, DO Work Phone: [employer]08-07-2024 18:01-0400Body bucgcj719 cmElioflakita Fischer I, DO Work Phone: bon [facility]08-07-2024 18:01-0400Body mass index (BMI) [Ratio]44.29 kg/u3KcdcpocAaliyah Fischer I, DO Work Phone: bon [facility]08-07-2024 18:01-0400Body axwbom293.4 kgAaliyah Fischer I, DO Work Phone: bon [facility]08-07-2024 12:14-0400Body esgnftxpdka18.24 [degF][facility]08-07-2024 12:14-0400Diastolic blood aopiyxvh38 mm[Hg][facility]08-07-2024 12:14-0400Heart rate91 /minCity [facility]08-07-2024 12:14-0400Respiratory rate20 /minCity [facility]08-07-2024 12:14-7836DuM9% (BldA) [Mass fraction]98 %[facility]08-07-2024 12:14-0400Systolic blood pressure 146 mm[Hg][facility]08-03-2024 02:43-0400Body sniaxemzwah21.7 [degF]Pedro Pablo [facility]08-03-2024 02:43-0400 Diastolic blood zagtropf75 mm[Hg]Pedro Pablo Chance [address] [place], [place] 9973408-03-2024 02:43-0400Heart rate82 /minNo Chance [facility]08-03-2024 02:43-0400 Respiratory rate16 /minNoah Chance [facility]08-03-2024 02:43-0821QgU4% (BldA) [Mass fraction]94 %Pedro Pablo Chance [facility]08-03-2024 02:43-0400 Systolic blood jwowpqui694 mm[Hg]Pedro Pablo Perezner [facility]07-27-2024 13:04-0400Body cimrgtllpeo63.1 [degF]Services [employer] Work Phone: [facility]07-27-2024 13:04-0400 Diastolic blood mm[Hg]Services [employer] Work Phone: [facility]07-27-2024 13:04-0400 Heart rate87 /[employer] Work Phone: 1([phone]-[facility]07-27-2024 13:04-0400 Respiratory rate18 /minSpromedica bay park hospitalOceansblue Systems Work Phone: 1(627)649-[facility]07-27-2024 13:04-0400 SaO2% (BldA) [Mass fraction]99 %Services [employer] Work Phone: [facility]07-27-2024 13:04-0400 Systolic blood udicgkwj018 mm[Hg]Services [facility] [employer] Work Phone: 1(484)415-[facility]07-27-2024 11:26-0400 Body wgoswh867.02 cmSlincoln hospital [employer] Work Phone: 1(165)050-[facility]07-27-2024 11:26-0400 Body qasyiv841.39 kgServices [employer] Work Phone: [facility]07-14-2024 00:47-0400 Diastolic blood fclvgvbi53 mm[Hg]Francisco J Ely DO Work Phone: [facility]07-14-2024 00:47-0400 Heart rate83 /minFrancisco J Ely DO Work Phone: [facility]07-14-2024 00:47-0400 Respiratory rate16 /minFrancisco J Ely DO Work Phone: [facility]07-14-2024 00:47-0400 SaO2% (BldA) [Mass fraction]95 %Francisco J Ely DO Work Phone: [facility]07-14-2024 00:47-0400 Systolic blood ahtyrfet540 mm[Hg]Francisco J Ely DO Work Phone: [facility]07-13-2024 21:39-0400 Body fmsaghrlaib31.9 [degF]Francisco J Ely DO Work Phone: [facility]07-13-2024 21:25-0400 Body epexmg482 cmRobert Solis DO Work Phone: [facility]07-13-2024 21:25-0400 Body mass index (BMI) [Ratio]44.29 kg/i3Pprwusjoan Ely DO Work Phone: [facility]07-13-2024 21:25-0400 Body xymlaz987.4 kgRobjoan Ely DO Work Phone: [facility]07-13-2024 19:56-0400 Diastolic blood uivujobq61 mm[Hg]Services [employer] Work Phone: [facility]07-13-2024 19:56-0400 Heart rate87 /[employer] Work Phone: [facility]07-13-2024 19:56-0400 Respiratory rate18 /[employer]SCh[employer]le[employer] Work Phone: [facility]07-13-2024 19:56-0400 SaO2% (BldA) [Mass fraction]98 %Services [employer] Work Phone: [facility]07-13-2024 19:56-0400 Systolic blood tkknmkoi013 mm[Hg]Services [employer] Work Phone: [facility]07-13-2024 14:36-0400 Body jzlivy021.83 cmServOceansblue Systems Work Phone: [facility]07-13-2024 14:36-0400 Body nfuvvviuqys78 [degF]Services [facility] [employer] Work Phone: [facility]07-13-2024 14:36-0400 Body wojndx923 kgServices [place] Work Phone: [facility]07-12-2024 14:48-0400 Body lrimfajtfxv67.06 [degF]Jorge Mcintosh [facility]07-12-2024 14:48-0400 Diastolic blood cmdduftv37 mm[Hg]Jorge Mcintosh [facility]07-12-2024 14:48-0400Heart rate72 /minJorge Mcintosh [facility]07-12-2024 14:48-0400 Respiratory rate16 /minJorge Mcintosh [facility]07-12-2024 14:48-9753MqO8% (BldA) [Mass fraction]97 %Jorge Mcintosh [facility]07-12-2024 14:48-0400 Systolic blood mm[Hg]Jorge Mcintosh [facility]07-03-2024 11:41-0400Body sasgnleeyyi43.24 [degF][facility]07-03-2024 11:41-0400Diastolic blood mm[Hg][facility]07-03-2024 11:41-0400Heart uclb356 /minCity Hospital07-03-2024 11:41-0400Respiratory rate18 /minCity Hospital07-03-2024 11:41-7881OlQ9% (BldA) [Mass fraction]95 %[facility]07-03-2024 11:41-0400Systolic blood pressure 173 mm[Hg]Balbina BryantC[facility] Clinic07-01-2024 12:15-0400Body ysnqxqvaxxn42.8 [degF]Elke Adams MD Work Phone: [facility]07-01-2024 12:15-0400 Diastolic blood wgicapkh35 mm[Hg]Elke Adams MD Work Phone: 1(730)377-[address] [place], [place] 1102307-01-2024 12:15-0400 Heart rate79 /Claudine Adams MD Work Phone: 1(361)871-[address] [place], [place] 1102307-01-2024 12:15-0400 Respiratory rate11 /Claudine Adams MD Work Phone: 1(638)502-[address] [place], [place] 2901007-01-2024 12:15-0400 SaO2% (BldA) [Mass fraction]92 %Elke Adams MD Work Phone: 1(575)324-[address] [place], [place] 1102307-01-2024 12:15-0400 Systolic blood dbeuipuu412 mm[Hg]Elke Adams MD Work Phone: [facility]07-01-2024 06:30-0400 Body mass index (BMI) [Ratio]44.87 kg/p2TljdononElke Adams MD Work Phone: [facility]07-01-2024 06:30-0400 Body eudips920.9 kgElke Adams MD Work Phone: 1(903)443-[address] [place], [place] 1102306-29-2024 11:15-0400 Body vxceweninxw56.24 [degF]Nikhil Tubbs [facility]06-29-2024 11:15-0400 Diastolic blood teadzdst45 mm[Hg]Nikhil Tubbs [facility]06-29-2024 11:15-0400Heart zijz479 /minNikhil Tubbs [facility]06-29-2024 11:15-0400 Respiratory rate18 /minNikhil Tubbs [facility]06-29-2024 11:15-7039SgN0% (BldA) [Mass fraction]98 %Nikhil Tubbs [facility]06-29-2024 11:15-0400 Systolic blood sqxllhuw322 mm[Hg]Nikhil Tubbs [facility]06-28-2024 10:55-0400Body ranwqhypsyd57.52 [degF]Jorge Mcintosh [facility]06-28-2024 10:55-0400 Diastolic blood ehdopfap80 mm[Hg]Jorge Mcintosh [facility]06-28-2024 10:55-0400Heart ncgm369 /minJorge Arnaldo [facility]06-28-2024 10:55-0400 Respiratory rate97 /minRoyamillicent Arnaldo [facility]06-28-2024 10:55-8660OlO8% (BldA) [Mass fraction]99 %Jorge Mcintosh [facility]06-28-2024 10:55-0400 Systolic blood ptgbuhrv753 mm[Hg]Jorge Mcintosh [facility]06-27-2024 13:13-0400 Diastolic blood doexjyiz69 mm[Hg]No Generic Provider [facility]06-27-2024 13:13-0400Heart rate87 /minNo Generic Provider [facility]06-27-2024 13:13-5247KqC5% (BldA) [Mass fraction]96 %No Generic Provider [facility]06-27-2024 13:13-0400 Systolic blood frsaocua685 mm[Hg]No Generic Provider [facility]06-27-2024 12:20-0400Body cmNo Generic Provider [facility]06-27-2024 12:20-0400Body mass index (BMI) [Ratio]44.29 kg/m2No Generic Provider [facility]06-27-2024 12:20-0400Body utxacgzncqe68.2 [degF]No Generic Provider [facility]06-27-2024 12:20-0400Body myqeyz132.4 kgNo Generic Provider [facility]06-27-2024 12:20-0400Respiratory rate16 /minNo Generic Provider [facility]06-25-2024 17:45-0400Blood Pressure LocationJamie Pankaj [phone]-QzxgiP[facility] Nbdf83-39-7493 17:45-0400Body bncrbkjfnaz48.6 [degF]Dax Pankaj [phone]-QrqjrPike [facility] Xdjv24-82-6902 17:45-0400Diastolic blood nbyecykn62 mm[Hg]Dax Moralesey 018-2801Kirsnq-WgfymPike [facility] Ccio59-26-0596 17:45-0400Heart rate92 /minJamie Pankaj [phone]-UuedxPike [facility] Njwe50-89-6193 17:45-0400Respiratory rate16 /minJamie Pankaj [phone]-VffskP[facility] Rzoe01-46-0427 17:45-1138BlE6% (BldA) [Mass fraction]98 %Dax Moralesey [phone]-FcosrPike [facility] Iczb53-96-8600 17:45-0400Systolic blood arhuhkdc202 mm[Hg]Dax Lira [phone]-SucttPike [facility] Suzs13-10-3910 17:30-0400Diastolic blood oyskkksq29 mm[Hg]No Generic Provider [facility]06-24-2024 17:30-0400Heart rate77 /minNo Generic Provider [facility]06-24-2024 17:30-0400Respiratory rate17 /min No Generic Provider [facility]06-24-2024 17:30-0400 SaO2% (BldA) [Mass fraction]96 %No Generic Provider [facility]06-24-2024 17:30-0400Systolic blood kprdmlwo101 mm[Hg]No Generic Provider [facility]06-24-2024 16:12-0400Body cgziio146 cmNo Generic Provider [facility]06-24-2024 16:12-0400 Body mass index (BMI) [Ratio]44.29 kg/m2No Generic Provider [facility]06-24-2024 16:12-0400Body zilwiietbcv53.8 [degF]No Generic Provider [facility]06-24-2024 16:12-0400Body weight 113.[address] [facility]06-18-2024 14:06-0400Diastolic blood gtpehrjm67 mm[Hg]Benja Garcia DO Work Phone: bon [employer] [id number] 14:06-0400Systolic blood lqzuaqus279 mm[Hg]Benja Garcia DO Work Phone: bon [employer] [facility]QWGTXC34-24-1025 14:02-0400Body hpuywu695 cmSami Radha DO Work Phone: BON [employer] [facility]ACXTME15-03-3459 14:02-0400Body mass index (BMI) [Ratio]38.09 kg/m2Benja Garcia DO Work Phone: bon [employer] [facility] [id number] 14:02-0400Body mxbifosmbif10.29 [degF]Benja Garcia DO Work Phone: bon [employer] [facility] [id number] 14:02-0400Body .52 kgBenja Garcia DO Work Phone: [facility]06-18-2024 14:02-0400Heart rate83 /Bentleyami Radha DO Work Phone: [facility]06-18-2024 14:02-0400 Respiratory rate17 /minSami Radha DO Work Phone: [facility]06-18-2024 14:02-5640AuB5% (BldA) [Mass fraction]97 %Benja Radha DO Work Phone: [facility]06-17-2024 22:30-0400Blood Pressure LocationJomillicent Mcintosh [address]06-17-2024 22:30-0400 Diastolic blood coljsezg74 mm[Hg]Jorge Mcintosh [address]06-17-2024 22:30-0400Heart rate71 /minJorge Mcintosh [address] [place], [place] 9880106-17-2024 22:30-0400Mean blood zjovbwpr95 mm[Hg]Jorge Mcintosh [address] [place], [place] 9880106-17-2024 22:30-0400 Respiratory rate16 /minJorge Mcintosh [address] [place], [place] 9880106-17-2024 22:30-8022AsW2% (BldA) [Mass fraction]99 %Jorge Mcintosh [address] [place], [place] 9880106-17-2024 22:30-0400 Systolic blood bolvwmdq496 mm[Hg]Jorge Mcintosh [address] [place], [place] 9880106-17-2024 21:30-0400Blood Pressure LocationJomillicent Mcintosh [address] [place], [place] 9880106-17-2024 21:30-0400 Diastolic blood tyjgurhk69 mm[Hg]Jorge Mcintosh [address]06-17-2024 21:30-0400Heart rate80 /Sulma Mcintosh [facility]06-17-2024 21:30-0400Mean blood pibivnfw38 mm[Hg]Jorge Mcintosh [facility]06-17-2024 21:30-0400 Respiratory rate16 /minJorge Mcintosh [address] [place], [place] 9880106-17-2024 21:30-4705QmB6% (BldA) [Mass fraction]98 %Jorge Mcintosh [address] [place], [place] 9880106-17-2024 21:30-0400 Systolic blood fjpylvqx212 mm[Hg]Jorge Mcintosh [address] [place], [place] 9880106-17-2024 21:00-0400 Diastolic blood oepdwmut86 mm[Hg]Jorge Mcintosh [address] [place], [place] 9880106-17-2024 21:00-0400Heart rate79 /Sulma Mcintosh [facility]06-17-2024 21:00-4976BkE7% (BldA) [Mass fraction]94 %Jorge Mcintosh [facility]06-17-2024 19:12-0400Heart rate96 /Sulma Mcintosh [facility]06-16-2024 18:37-0400Body .56 cmServices [place] Work Phone: [facility]06-16-2024 18:37-0400 Body kepwfdkevvq58.3 [degF]Services [place] Work Phone: [facility]06-16-2024 18:37-0400 Body .3 kgServices [place] Work Phone: [facility]06-16-2024 18:37-0400 Diastolic blood fmpcsjke65 mm[Hg]Services [place] Work Phone: [facility]06-16-2024 18:37-0400 Heart rate97 /minServices [place] Work Phone: [facility]06-16-2024 18:37-0400 Respiratory rate19 /minServices [place] Work Phone: [facility]06-16-2024 18:37-0400 SaO2% (BldA) [Mass fraction]99 %Services [place] Work Phone: [facility]06-16-2024 18:37-0400 Systolic blood wdeororn094 mm[Hg]Services [place] Work Phone: [facility]06-14-2024 21:10-0400 Body qcfyclzkdak88.88 [degF]Pedro Pablo Chance [facility]06-14-2024 21:10-0400 Diastolic blood cqiksqbp81 mm[Hg]Pedro Pablo Chance [facility]06-14-2024 21:10-0400Heart rate79 /minNoah Chance [facility]06-14-2024 21:10-0400 Respiratory rate17 /minNoah Chance [facility]06-14-2024 21:10-0117TdH3% (BldA) [Mass fraction]98 %Pedro Pablo Chance [facility]06-14-2024 21:10-0400 Systolic blood rkifjeaf912 mm[Hg]Pedro Pablo Chance [facility]06-10-2024 18:07-0400Body dlphqjkyhvk30.88 [degF]Jorge Mcintosh [facility]06-10-2024 18:07-0400 Diastolic blood ngavcliu44 mm[Hg]Jorge Mcintosh [address] [place], [place] 9880106-10-2024 18:07-0400Heart rate94 /Sulma Mcintosh [address] [place], [place] 9880106-10-2024 18:07-0400 Respiratory rate16 /Sulma Mcintosh [address] [place], [place] 9880106-10-2024 18:07-7154BaM0% (BldA) [Mass fraction]96 %Jorge Mcintosh [address] [place], [place] 9880106-10-2024 18:07-0400 Systolic blood cwjkewkn452 mm[Hg]Jorge Mcintosh [address] [place], [place] 9880106-07-2024 19:17-0400 Diastolic blood mm[Hg]Nikhil Tubbs [address] [place], [place] 9880106-07-2024 19:17-0400Heart rate94 /batoolNikhil Tubbs [address] [place], [place] 9880106-07-2024 19:17-0400Mean blood issfyyfj181 mm[Hg]Nikhil Tubbs [address] [place], [place] 9880106-07-2024 19:17-0400 Respiratory rate17 /batoolNikhil Tubbs [address] [place], [place] 9880106-07-2024 19:17-2247CdU9% (BldA) [Mass fraction]97 %Nikhil Tubbs [address] [place], [place] 9880106-07-2024 19:17-0400 Systolic blood zfiqltjq650 mm[Hg]Nikhil Tubbs [address] [place], [place] 9880106-07-2024 18:13-0400Body wadizpsmqmv06.24 [degF]Nikhil Tubbs [address] [place], [place] 9880106-07-2024 18:13-0400 Diastolic blood etmowqfm567 mm[Hg]Nikhil Tubbs [facility]06-07-2024 18:13-0400Heart rate92 /batoolNikhil Tubbs [facility]06-07-2024 18:13-0400 Respiratory rate18 /batoolNikhil Tubbs [facility]06-07-2024 18:13-9561AiB1% (BldA) [Mass fraction]100 %Nikhil Tubbs [facility]06-07-2024 18:13-0400 Systolic blood ihiuksyd627 mm[Hg]Nikhil Tubbs [facility]06-04-2024 13:20-0400Body bsvojw138 cmChirag Reynoso HOT BLASTER-WAIVER ANALYST Work Phone: [facility]06-04-2024 13:20-0400 Body mass index (BMI) [Ratio]44.29 kg/k1ZrkpiabeChirag Reynoso HOT BLASTER-WAIVER ANALYST Work Phone: [facility]06-04-2024 13:20-0400 Body ziabpu117.4 kgChirag Reynoso HOT BLASTER-WAIVER ANALYST Work Phone: [facility]06-04-2024 13:20-0400 Diastolic blood mm[Hg]Chirag Reynoso HOT BLASTER-WAIVER ANALYST Work Phone: [facility]06-04-2024 13:20-0400 Heart rate88 /minChirag Reynoso HOT BLASTER-WAIVER ANALYST Work Phone: [facility]06-04-2024 13:20-0400 Respiratory rate18 /minChirag Reynoso HOT BLASTER-WAIVER ANALYST Work Phone: [facility]06-04-2024 13:20-0400 Systolic blood zvnaohna790 mm[Hg]Chirag Reynoso HOT BLASTER-WAIVER ANALYST Work Phone: [facility]05-29-2024 10:06-0400 Body yqbfaxyykim13.8 [degF]Elke Adams MD Work Phone: 1(396)341-[address] [place], [place] 2901005-29-2024 10:06-0400 Diastolic blood oarltccy21 mm[Hg]Elke Adams MD Work Phone: 1(979)197-[address] [place], [place] 2901005-29-2024 10:06-0400 Respiratory rate16 /Claudine Adams MD Work Phone: 1(812)448-[address] [place], [place] 2901005-29-2024 10:06-0400 SaO2% (BldA) [Mass fraction]93 %Elke Adams MD Work Phone: 1(893)085-[address] [place], [place] 2901005-29-2024 10:06-0400 Systolic blood fqumzswq726 mm[Hg]Elke Adams MD Work Phone: 1(466)043-[address] [place], [place] 2901005-29-2024 06:30-0400 Body qfaqwe960 cmElke Adams MD Work Phone: 1(805)036-[address] [place], [place] 2901005-29-2024 06:30-0400 Body mass index (BMI) [Ratio]44.32 kg/t7MtuskdhhElke Adams MD Work Phone: 1(885)563-[address] [place], [place] 2901005-29-2024 06:30-0400 Body jjwadh297.5 kgElke Adams MD Work Phone: 1(654)235-[address] [place], [place] 2901005-29-2024 06:30-0400 Heart rate87 /Claudine Adams MD Work Phone: 1(877)353-[address] [place], [place] 2901005-24-2024 00:55-0400 Diastolic blood lxkwuunz05 mm[Hg][facility] 08-16-2023 00:55-0400Heart rate64 /[facility]2024 00:55-0400Mean blood jlbmhjwe236 mm[Hg][facility]05-24-2024 00:55-0400Respiratory rate15 /[facility]05-24-2024 00:55-4030JeW3% (BldA) [Mass fraction]93 %[facility]05-24-2024 00:55-0400Systolic blood nuedecyx107 mm[Hg][facility]05-24-2024 00:07-0400Diastolic blood ibsibrkz52 mm[Hg][facility]05-24-2024 00:07-0400Heart rate73 /[facility]05-24-2024 00:07-0400Mean blood ildslcyt149 mm[Hg][facility]05-24-2024 00:07-0400Respiratory rate17 /[facility]05-24-2024 00:07-5607QhS8% (BldA) [Mass fraction]93 %[facility]05-24-2024 00:07-0400Systolic blood msvtitna457 mm[Hg][facility]05-23-2024 23:42-0400Diastolic blood clctdyvl83 mm[Hg][facility]05-23-2024 23:42-0400Heart rate79 /[facility]05-23-2024 23:42-0400Mean blood etyscant09 mm[Hg][facility]05-23-2024 23:42-0400Respiratory rate15 /[facility]05-23-2024 23:42-7790JqN5% (BldA) [Mass fraction]94 %[facility]05-23-2024 23:42-0400Systolic blood oosxyeez081 mm[Hg][facility]05-23-2024 22:22-0400Body mpyneiamsnu85.06 [degF][facility]05-23-2024 22:22-0400Heart rate88 /[facility]05-22-2024 15:16-0400Diastolic blood ybqcafok32 mm[Hg]Sheth Sher [facility]05-22-2024 15:16-0400Heart rate86 /minKerrymollyken Sher [facility]05-22-2024 15:16-0400Mean blood pcsetiix77 mm[Hg]Sheth Sher [facility]05-22-2024 15:16-0400 Respiratory rate16 /minDomenic Christos [facility]05-22-2024 15:16-0400 Systolic blood kduhbjlr741 mm[Hg]Domenic Sher [facility]05-20-2024 20:51-0400Body msxcnfpcrhy03.24 [degF]Bebetoylinn Dokken [address] [place], [place] 9973405-20-2024 20:51-0400 Diastolic blood wedteujv76 mm[Hg]Kaylinn Dokken [address] [place], [place] 9880105-20-2024 20:51-0400Heart rate83 /minKaylinn Dokken [address] [place], [place] 9880105-20-2024 20:51-0400 Respiratory rate18 /minKaylinn Dokken [address] [place], [place] 9880105-20-2024 20:51-5435BqB3% (BldA) [Mass fraction]95 %Kaylinn Dokken [address] [place], [place] 9880105-20-2024 20:51-0400 Systolic blood olixfday413 mm[Hg]Elisa Sánchez [facility]05-17-2024 23:20-0400Body oaewdkbcjpp55.7 [degF]Keke Payen MD Work Phone: [facility](250[facility]39 23:20-0400Diastolic blood tohwutlo86 mm[Hg]Keke Payne MD Work Phone: 1(211)[facility] HospitalJbghsu00-61-4049 23:20-0400Heart rate79 /min Keke Payne MD Work Phone: 1(337)[facility] HospitalSdmonn54-23-7717 23:20-0400Respiratory rate18 /minKeke Payne MD Work Phone: 1(101)[facility] HospitalUtntqn76-79-4846 23:20-5208LoJ3% (BldA) [Mass fraction]95 %Keke Payne MD Work Phone: 1(441)[facility] HospitalLkppcg44-07-8890 23:20-0400Systolic blood jghuvmyt030 mm[Hg]Keke Payne MD Work Phone: 1(956)[facility] HospitalYeweea08-78-2546 21:46-0400Body mass index (BMI) [Ratio]44.29 kg/a7YnwvtshtKeke Payne MD Work Phone: 1(580)[facility] HospitalQxwlhw58-99-7942 21:46-0400Body fykhfv138.4 kg Keke Payne MD Work Phone: 1(623)[facility] HospitalIerpta05-75-8696 20:15-0400Body temperature 97.88 [degF]Pedro Pablo Chance [facility]05-13-2024 20:15-0400 Diastolic blood gqziqggn77 mm[Hg]Pedro Pablo Chance [facility]05-13-2024 20:15-0400Heart rate98 /minNo Chance [address] [place], [place] 9880105-13-2024 20:15-0400 Respiratory rate16 /minNolauren Chance [address] [place], [place] 9880105-13-2024 20:15-9158ZoG6% (BldA) [Mass fraction]94 %Pedro Pablo Chance [address] [place], [place] 9880105-13-2024 20:15-0400 Systolic blood lmynsney718 mm[Hg]Pedro Pablo Fletcher [address]05-10-2024 11:52-0400Body cuzsnztdvpq39.88 [degF]Nikhil Tubbs [address]05-10-2024 11:52-0400 Diastolic blood mydqqfyh70 mm[Hg]Nikhil Tubbs [address] [place], [place] 4822605-10-2024 11:52-0400Heart rate86 /Lynette Tubbs [address] [place], [place] 9880105-10-2024 11:52-0400 Respiratory rate20 /Lynette Tubbs [address]05-10-2024 11:52-2823MyR6% (BldA) [Mass fraction]93 %Nikhil Tubbs [address] [place], [place] 4822605-10-2024 11:52-0400 Systolic blood sejlfgyh210 mm[Hg]Nikhil Tubbs [address] [place], [place] 9880105-08-2024 15:29-0400 Diastolic blood lgzrruhk67 mm[Hg][facility] 07-31-2023 15:29-0400Heart rate75 /[facility]05-08-2024 15:29-0400Mean blood ukxooiku915 mm[Hg][facility]05-08-2024 15:29-0400Respiratory rate16 /[facility]05-08-2024 15:29-5649ZwW8% (BldA) [Mass fraction]98 %[facility]05-08-2024 15:29-0400Systolic blood bevjcukd267 mm[Hg][facility]05-08-2024 14:22-0400Body eyhioznlwng32.06 [degF][facility]05-08-2024 14:22-0400Diastolic blood quxbhwei73 mm[Hg][facility]05-08-2024 14:22-0400Heart rate88 /[facility]05-08-2024 14:22-0400Mean blood jvxvaxtn797 mm[Hg] [facility]05-08-2024 14:22-0400Respiratory rate 18 /[facility]05-08-2024 14:22-2529YtV2% (BldA) [Mass fraction]96 %[facility]05-08-2024 14:22-0400Systolic blood mm[Hg][facility]05-03-2024 11:06-0400Body spobkhxegts50.24 [degF]Jorge Mcintosh [facility]05-03-2024 11:06-0400 Diastolic blood doqxuyek48 mm[Hg]Jorge Mcintosh [address] [place], [place] [address]0105-03-2024 11:06-0400Heart rate83 /minJorge Mcintosh [facility]05-03-2024 11:06-0400 Respiratory rate19 /minJorge Mcintosh [facility]05-03-2024 11:06-9527XoO8% (BldA) [Mass fraction]97 %Jorge Mcintosh [address] [place], [place] 9880105-03-2024 11:06-0400 Systolic blood igbpdiyu633 mm[Hg]Jorge Mcintosh [address] [place], [place] 9880104-24-2024 09:43-0400 Diastolic blood xjvdwpiy06 mm[Hg]Mayra Rosas [phone]-Vrlkf[address] [place], [place] 6236004-24-2024 09:43-0400Mean blood gioyvgym312 mm[Hg]Mayra Rosas [phone]-Hinyf[address]04-24-2024 09:43-0400Systolic blood skuhtxhq961 mm[Hg]Mayra Rosas [address] [place], [place] 4887004-24-2024 07:48-0400Blood Pressure LocationMayra Rosas [phone]-Awfct[address] [place], [place] 6236004-24-2024 07:48-0400Body icfsforhxyo72.7 [degF]Mayra Rosas [address] [place], [place] 4887004-24-2024 07:48-0400Diastolic blood jlzopxmd59 mm[Hg]Mayra Rosas [address] [place], [place] 4887004-24-2024 07:48-0400Heart rate91 /Acosta Rosas [phone]-Fiqao[address] [place], [place] 6236004-24-2024 07:48-0400Respiratory rate18 /Acosta Rosas [address] [place], [place] 4887004-24-2024 07:48-8153UeX4% (BldA) [Mass fraction]97 %Mayra Rosas [phone]-Lclej[address] [place], [place] 6236004-24-2024 07:48-0400Systolic blood mepwsppz631 mm[Hg]Mayra Rosas 334-3332Utpqwh-[facility]qP[facility] Fblm50-71-2193 13:42-0400Diastolic blood mm[Hg]Dory Shepherd [facility]04-22-2024 13:42-0400Heart rate76 /minAmanda Shepherd [facility]04-22-2024 13:42-0400Mean blood mm[Hg]Dory Shepherd [facility]04-22-2024 13:42-0400 Respiratory rate15 /minAmanda Shepherd [facility]04-22-2024 13:42-0400 Systolic blood zohyshba893 mm[Hg]Dory Shepherd [facility]04-21-2024 11:37-0400Body mgytrwvdbpv64.52 [degF]Nikhil Tubbs [address] [place], [place] 9880104-21-2024 11:37-0400 Diastolic blood mm[Hg]Nikhil Tubbs [address] [place], [place] 9880104-21-2024 11:37-0400Heart rate98 /Lynette Tubbs [address] [place], [place] 9880104-21-2024 11:37-0400 Respiratory rate18 /minNikhil Tubbs [address] [place], [place] 9880104-21-2024 11:37-2255QxQ3% (BldA) [Mass fraction]99 %Nikhil Tubbs [address] [place], [place] 9880104-21-2024 11:37-0400 Systolic blood wpngzyst305 mm[Hg]Nikhil Tubbs [address] [place], [place] 9880104-18-2024 09:23-0400Body kcxyasfzazr12.24 [degF][facility]04-[facility]2024 09:23-0400Diastolic blood ltbbydic63 mm[Hg][facility]04-18-2024 09:23-0400Heart rate92 /[facility]04-18-2024 09:23-0400Respiratory rate18 /[facility]04-18-2024 09:23-4345BmI2% (BldA) [Mass fraction]99 %[facility]04-18-2024 09:23-0400Systolic blood pressure 151 mm[Hg][facility]04-13-2024 18:22-0400Body ejenxecbrro67.88 [degF][facility]04-13-2024 18:22-0400Diastolic blood mm[Hg][facility]04-13-2024 18:22-0400Heart rate90 /[facility]04-13-2024 18:22-0400Respiratory rate18 /[facility]04-13-2024 18:22-1471WhS1% (BldA) [Mass fraction]97 %[facility]04-13-2024 18:22-0400Systolic blood pressure 159 mm[Hg][facility]04-11-2024 10:35-0400Body .02 cmServices [facility] Work Phone: [facility]04-11-2024 10:35-0400 Body gdxdox165.5 kgServices [facility] Work Phone: [facility]04-11-2024 10:34-0400 Body qcbnetlptaf91.5 [degF]Services [facility] [employer] Work Phone: [facility]04-11-2024 10:34-0400 Diastolic blood aqqtpwev50 mm[Hg]Services [facility] [employer] Work Phone: [facility]04-11-2024 10:34-0400 Heart rate98 /minServAtrium Health Work Phone: [facility]04-11-2024 10:34-0400 Respiratory rate22 /[facility] Work Phone: [facility]04-11-2024 10:34-0400 SaO2% (BldA) [Mass fraction]98 %Services [facility] [employer] Work Phone: [facility]04-11-2024 10:34-0400 Systolic blood cchqvoxr573 mm[Hg]Services [place] Work Phone: [facility]04-06-2024 13:37-0400 Body crhipgrpofb17.24 [degF]Nikhil Tubbs [address]04-06-2024 13:37-0400 Diastolic blood yjiofeyo13 mm[Hg]Nikhil Tubbs [address] [place], [place] 9880104-06-2024 13:37-0400Heart rate84 /batoolNikhil Tubbs [address] [place], [place] 9880104-06-2024 13:37-0400 Respiratory rate16 /Lynette Tubbs [address] [place], [place] 9880104-06-2024 13:37-2803GbB2% (BldA) [Mass fraction]97 %Nikhil Tubbs [address] [place], [place] 9880104-06-2024 13:37-0400 Systolic blood siemcyti435 mm[Hg]Nikhil Tubbs [address] [place], [place] 9880104-04-2024 11:52-0400Body .7 [degF]Nikhil Tubbs [address] [place], [place] 9880104-04-2024 11:52-0400 Diastolic blood wlhetajl07 mm[Hg]Nikhil Tubbs [address] [place], [place] 9880104-04-2024 11:52-0400Heart rate87 /batoolNikhil Tubbs [facility]04-04-2024 11:52-0400 Respiratory rate18 /Iainene Tubbs [facility]04-04-2024 11:52-7175HjW6% (BldA) [Mass fraction]96 %Nikhil Tubbs [facility]04-04-2024 11:52-0400 Systolic blood keaahnxz854 mm[Hg]Nikhil Tubbs [facility]04-03-2024 16:39-0400Body lmwpyv616.02 cmAPRN Joshua Ferrell Work Phone: [facility]04-03-2024 16:39-0400 Body oeppfxsrsun27.6 [degF]HOT BLASTER Joshua Mariaelena Work Phone: [facility]04-03-2024 16:39-0400 Body pubbvo104 kgAPRN Joshua Mariaelena Work Phone: [facility]04-03-2024 16:39-0400 Diastolic blood tldmecrx67 mm[Hg]HOT BLASTER Joshua Mariaelena Work Phone: [facility]04-03-2024 16:39-0400 Heart rate92 /minAPRN Joshua Mariaelena Work Phone: [facility]04-03-2024 16:39-0400 Respiratory rate21 /minAPRN Joshua Mariaelena Work Phone: [facility]04-03-2024 16:39-0400 SaO2% (BldA) [Mass fraction]97 %HOT BLASTER Joshua Mariaelena Work Phone: [facility]04-03-2024 16:39-0400 Systolic blood lbbeoozb821 mm[Hg]HOT BLASTER Joshua Mariaelena Work Phone: [facility]04-01-2024 11:30-0400 Diastolic blood xplnacvl09 mm[Hg][facility] 06-24-2023 11:30-0400Heart rate78 /[facility]04-01-2024 11:30-0400Mean blood twskopog43 mm[Hg][facility]04-01-2024 11:30-0400Respiratory rate18 /[facility]04-01-2024 11:30-2832QaP4% (BldA) [Mass fraction]97 %[facility]04-01-2024 11:30-0400Systolic blood mm[Hg][facility]04-01-2024 10:30-0400Diastolic blood nwhelvba35 mm[Hg][facility]04-01-2024 10:30-0400Heart rate80 /[facility]04-01-2024 10:30-0400Mean blood meoeigqg59 mm[Hg][facility]04-01-2024 10:30-0400Respiratory rate18 /[facility]04-01-2024 10:30-1841PqN0% (BldA) [Mass fraction]97 %[facility]04-01-2024 10:30-0400Systolic blood tkzaztii658 mm[Hg][facility]04-01-2024 09:45-0400Body hoaoengnkon32.7 [degF][facility] 06-24-2023 09:45-0400Diastolic blood birnrezw84 mm[Hg][facility]04-01-2024 09:45-0400Heart nycj135 /[facility]04-01-2024 09:45-0400Respiratory rate17 /minAstrute Bryant [facility]04-01-2024 09:45-5655TcM9% (BldA) [Mass fraction]97 %[facility]04-01-2024 09:45-0400Systolic blood fkjmacqc884 mm[Hg][facility]03-30-2024 19:05-0400Diastolic blood ezembrfm12 mm[Hg]Nikhil Tubbs [address]03-30-2024 19:05-0400Heart rate94 /Lynette Tubbs [address]03-30-2024 19:05-0400Mean blood mm[Hg]Nikhil Tubbs [address]03-30-2024 19:05-5893GzR7% (BldA) [Mass fraction]94 %Nikhil Tubbs [address] [place], [place] 9880103-30-2024 19:05-0400 Systolic blood dqluokov111 mm[Hg]Nikhil Tubbs [address] [place], [place] 9880103-30-2024 18:02-0400 Diastolic blood yyvthike95 mm[Hg]Nikhil Tubbs [address] [place], [place] 9880103-30-2024 18:02-0400Heart rate95 /Lynette Tubbs [address] [place], [place] 9880103-30-2024 18:02-0400Mean blood mm[Hg]Nikhil Tubbs [address] [place], [place] 9880103-30-2024 18:02-0400 Systolic blood nuwxcpvi726 mm[Hg]Nikhil Tubbs [address] [place], [place] 9880103-30-2024 17:00-0400Blood Pressure LocationNikhil Tubbs [address]03-30-2024 17:00-0400 Diastolic blood hnwjgmhy55 mm[Hg]Nikhil Tubbs [address] [place], [place] 9880103-30-2024 17:00-0400Heart rate93 /minNikhil Tubbs [address] [place], [place] 9880103-30-2024 17:00-0400Mean blood hclohcuq35 mm[Hg]Nikhil Tubbs [address]03-30-2024 17:00-0400 Respiratory rate18 /minNikhil Tubbs [address] [place], [place] 4822603-30-2024 17:00-6937FjG9% (BldA) [Mass fraction]96 %Nikhil Tubbs [address] [place], [place] 4822603-30-2024 17:00-0400 Systolic blood rvrgrhtu001 mm[Hg]Nikhil Tubbs [address] [place], [place] 4822603-30-2024 16:00-0971SgZ1% (BldA) [Mass fraction]98 %Nikhil Tubbs [address] [place], [place] 4822603-30-2024 15:20-0400 Respiratory rate17 /minNikhil Tubbs [address] [place], [place] 4822603-30-2024 14:21-0400Body dhxzdxqacub34.24 [degF]Nikhil Tubbs [address] [place], [place] 9880103-30-2024 14:21-0400Heart jenl672 /minNikhil Tubbs [address] [place], [place] 9880103-30-2024 14:21-0400 Respiratory rate16 /minNikhil Tubbs [address] [place], [place] 4822603-23-2024 18:05-0400Body yhfffvtfdmv96.7 [degF][facility] 18:05-0400Diastolic blood cpnicvcz18 mm[Hg][facility]23[facility] 18:05-0400[facility]79 /[facility] 18:05-0400Respiratory rate18 /[facility]23-2024 18:05-4155JmE5% (BldA) [Mass fraction]99 %[facility]03-23-2024 18:05-0400Systolic blood pressure 125 mm[Hg][facility]03-23-2024 16:03-0400 Diastolic blood wfkbjfci03 mm[Hg]Slime Oberhauser DO Work Phone: [phone]03[facility]23-[facility]24 16:03-0400 Heart rate84 /minMegan Oberhauser DO Work Phone: [phone])[facility]03-23-2024 16:03-0400 Respiratory rate16 /minMegan Oberhauser DO Work Phone: [phone])[facility] 16:03-0400 SaO2% (BldA) [Mass fraction]98 %Slime Oberhauser DO Work Phone: 1([phone])[facility]03-23-2024 16:03-0400 Systolic blood mm[Hg]Slime Oberhauser DO Work Phone: 1([phone])[facility]03-23-2024 14:37-0400 Body cmMegan Oberhauser DO Work Phone: 1([phone])[facility]03-23-2024 14:37-0400 Body mass index (BMI) [Ratio]44.29 kg/g1Kwrwq Oberhauser DO Work Phone: [phone]24 14:37-0400 Body tkhghciiaqq88 [degF]Slime Oberhauser DO Work Phone: [facility]03-23-2024 14:37-0400 Body .4 kgMegan Obersavanna DO Work Phone: [facility]03-19-2024 18:54-0400 Body wnrqubiflpb70.24 [degF]Elisa Sánchez [facility]03-19-2024 18:54-0400 Diastolic blood mxmmgoyv50 mm[Hg]Paulan Alfredoen [facility]03-19-2024 18:54-0400Heart rate92 /minPaulan Alfredoen [facility]03-19-2024 18:54-0400 Respiratory rate16 /minPaulan Alfredoen [facility]03-19-2024 18:54-5125NwZ6% (BldA) [Mass fraction]98 %Elisa Sánchez [facility]03-19-2024 18:54-0400 Systolic blood jydzcqam786 mm[Hg]Elisa Sánchez [facility]03-16-2024 18:35-0400 Diastolic blood ksifbhua96 mm[Hg]Allyson Griffiths DO Work Phone: [phone] HospitalRnlwso68-62-2160 18:35-0400Heart rate86 /min Allyson Griffiths DO Work Phone: [phone] HospitalItqiwx58-92-6827 18:35-0400Respiratory rate16 /minAllyson Griffiths DO Work Phone: [phone] HospitalPkhijx62-86-9424 18:35-9453OiC2% (BldA) [Mass fraction]98 %Allyson Griffiths DO Work Phone: [phone] HospitalTwoefp43-75-7896 18:35-0400Systolic blood fneekcol711 mm[Hg]Allyson Griffiths DO Work Phone: [phone] HospitalYaxyfk57-53-7885 17:41-0400Body lrnkof247 cm Allyson Griffiths DO Work Phone: [phone] HospitalAwpmul19-00-2677 17:41-0400Body mass index (BMI) [Ratio]44.29 kg/g7VulnltAllyson Griffiths DO Work Phone: [phone] HospitalOfutfl86-25-3583 17:41-0400Body temperature 97.81 [degF]Allyson Griffiths DO Work Phone: [phone] HospitalAmbogc97-33-4437 17:41-0400Body .4 kg Allyson Griffiths DO Work Phone: [phone] HospitalYmtjot49-40-0298 08:13-0400Body cm Elke Adams MD Work Phone: [facility]03-13-2024 08:13-0400 Body mass index (BMI) [Ratio]44.29 kg/h9WxcnojhqElke Adams MD Work Phone: [facility]03-13-2024 08:13-0400 Body hhkykf623.4 kgElke Adams MD Work Phone: [phone]03-13-2024 08:13-0400 Diastolic blood ifrdmeeb31 mm[Hg]Elke Adams MD Work Phone: [phone]03-13-2024 08:13-0400 Heart rate85 /Claudine Adams MD Work Phone: [facility]03-13-2024 08:13-0400 Respiratory rate20 /Claudine Adams MD Work Phone: [facility]03-13-2024 08:13-0400 Systolic blood lhgnumpw912 mm[Hg]Elke Adams MD Work Phone: [facility]03-11-2024 19:07-0400 Body hlcofphsojq04.06 [degF]Jorge Mcintosh [facility]03-11-2024 19:07-0400 Diastolic blood xnvrbiby19 mm[Hg]Jorge Mcintosh [facility]03-11-2024 19:07-0400Heart rate71 /minJorge Mcintosh [facility]03-11-2024 19:07-0400 Respiratory rate16 /minJomillicent Mcintosh [facility]03-11-2024 19:07-8637LhL6% (BldA) [Mass fraction]96 %Jorge Mcintosh [facility]03-11-2024 19:07-0400 Systolic blood zqsmmjpy995 mm[Hg]Jorge Mcintosh [facility]03-09-2024 16:07-0500 Diastolic blood kgetljgz40 mm[Hg]ELIZABETH Ferrell Work Phone: [facility]03-09-2024 16:07-0500 Heart rate76 /minAPRN Joshua Mariaelena Work Phone: [facility]03-09-2024 16:07-0500 Respiratory rate18 /minAPRN Joshua Mariaelena Work Phone: [facility]03-09-2024 16:07-0500 SaO2% (BldA) [Mass fraction]96 %HOT BLASTER Joshua Mariaelena Work Phone: [facility]03-09-2024 16:07-0500 Systolic blood vuwlaffr437 mm[Hg]HOT BLASTER Joshua Mariaelena Work Phone: [facility]03-09-2024 11:49-0500 Body inzjfv348.02 cmAPRN Joshua Mariaelena Work Phone: [facility]03-09-2024 11:49-0500 Body wdhnhndjdyd75.9 [degF]ELIZABETH Ferrell Work Phone: [facility]03-09-2024 11:49-0500 Body .52 kgELIZABETH Ferrell Work Phone: [facility]03-08-2024 18:12-0500 Diastolic blood pipqhuqt123 mm[Hg]Jorge Mcintosh [facility]03-08-2024 18:12-0500Heart rate71 /minJorge Mcintosh [address] [place], [place] [address]880103-08-2024 18:12-0500Mean blood mm[Hg]Jorge Mcintosh [facility]03-08-2024 18:12-0500 Respiratory rate18 /minJorge Mcintosh [facility]03-08-2024 18:12-4137LvB7% (BldA) [Mass fraction]97 %Jorge Mcintosh [facility]03-08-2024 18:12-0500 Systolic blood oaqyqaqi428 mm[Hg]Jorge Mcintosh [facility]03-08-2024 17:01-0500 Diastolic blood mm[Hg]Jorge Mcintosh [facility]03-08-2024 17:01-0500Heart rate85 /minJorge Mcintosh [address] [place], [place] 9880103-08-2024 17:01-0500Mean blood xeuvzmwh73 mm[Hg]Jorge Mcintosh [address] [place], [place] 9880103-08-2024 17:01-0500 Respiratory rate18 /minJorge Mcintosh [address] [place], [place] 9880103-08-2024 17:01-2158WkK7% (BldA) [Mass fraction]96 %Jorge Mcintosh [address] [place], [place] 9880103-08-2024 17:01-0500 Systolic blood riokueul649 mm[Hg]Jorge Mcintosh [address] [place], [place] 9880103-08-2024 16:41-0500Body vkmtaapdbev15.6 [degF]Jorge Mcintosh [address] [place], [place] 9880103-08-2024 16:41-0500 Diastolic blood lmjcdexi94 mm[Hg]Jorge Mcintosh [address] [place], [place] 9880103-08-2024 16:41-0500Heart rate88 /minJorge Mcintosh [address] [place], [place] 9880103-08-2024 16:41-0500 Respiratory rate18 /minJomillicent Mcintosh [address] [place], [place] 9880103-08-2024 16:41-1803RnZ0% (BldA) [Mass fraction]96 %Jorge Mcintosh [address] [place], [place] 9880103-08-2024 16:41-0500 Systolic blood pbtyxozz011 mm[Hg]Jorge Mcintosh [address] [place], [place] 9880103-03-2024 19:35-0500Body hjlewdkpprl82.7 [degF]Pedro Pablo Chance [address] [place], [place] 9880103-03-2024 19:35-0500 Diastolic blood bbkwxemu42 mm[Hg]Pedro Pablo Chance [address] [place], [place] 9880103-03-2024 19:35-0500Heart rate94 /minNoah Chance [address] [place], [place] 9880103-03-2024 19:35-0500 Respiratory rate16 /minNoah Chance [address] [place], [place] 9880103-03-2024 19:35-8041GmN8% (BldA) [Mass fraction]98 %Pedro Pablo Fletcher [facility]03-03-2024 19:35-0500 Systolic blood qebwprpk864 mm[Hg]Pedro Pablo Fletcher [facility]03-02-2024 14:00-0500Body cfaybo757.02 cmAPRRadha Ferrell Work Phone: [facility]03-02-2024 14:00-0500 Body ojnnklyjxar44.7 [degF]ELIZABETH Ferrell Work Phone: [phone]03-02-2024 14:00-0500 Body idwzvf995 kgAPRRadha Ferrell Work Phone: [phone] [place], [place] 4806003-02-2024 14:00-0500 Diastolic blood brvefebm97 mm[Hg]HOT BLASTERRadha Ferrell Work Phone: [phone]03-02-2024 14:00-0500 Heart rate89 /minAPRRadha Ferrell Work Phone: [phone]03-02-2024 14:00-0500 Respiratory rate16 /minAPRN Joshua Mariaelena Work Phone: [facility]03-02-2024 14:00-0500 SaO2% (BldA) [Mass fraction]96 %ELIZABETH Lewis Amriaelena Work Phone: [phone]03-02-2024 14:00-0500 Systolic blood asauhcos059 mm[Hg]HOT BLASTER Joshua Mariaelena Work Phone: [phone]03-01-2024 19:20-0500 Body xybxtzecsym83.7 [degF]Nikhil Tubbs [facility]03-01-2024 19:20-0500 Diastolic blood mm[Hg]Nikhil Tubbs [facility]03-01-2024 19:20-0500Heart rate98 /minNikhil Tubbs [facility]03-01-2024 19:20-0500 Respiratory rate16 /minNikhil Tubbs [facility]03-01-2024 19:20-1576FhE6% (BldA) [Mass fraction]96 %Nikhil Tubbs [facility]03-01-2024 19:20-0500 Systolic blood ohpavrtq403 mm[Hg]Nikhil Tubbs [facility]02-25-2024 12:01-0500Body .02 cmPHYSICIAN NO [facility]02-25-2024 12:01-0500Body qgejxbxvbwh18.1 [degF]PHYSICIAN NO [facility]02-25-2024 12:01-0500Body kelmwd655 kgPHYSICIAN NO [facility]02-25-2024 12:01-0500Diastolic blood lldrdogz61 mm[Hg] PHYSICIAN NO [facility]02-25-2024 12:01-0500Heart rate97 /minPHYSICIAN [facility]02-25-2024 12:01-0500Respiratory rate18 /minPHYSICIAN NO [facility]02-25-2024 12:01-6770TcC8% (BldA) [Mass fraction]98 %PHYSICIAN NO [facility]02-25-2024 12:01-0500Systolic blood bpeqsosg191 mm[Hg]PHYSICIAN NO [facility]02-22-2024 16:20-0500 Body xgsjhuudtoh54.06 [degF]Nikhil Tubbs [facility]02-22-2024 16:20-0500 Diastolic blood dgylzyop19 mm[Hg]Nikhil Tubbs [facility]02-22-2024 16:20-0500Heart rate86 /batoolNikhil Tubbs [address] [place], [place] 9880102-22-2024 16:20-0500 Respiratory rate16 /Iainene Arley [address] [place], [place] 9880102-22-2024 16:20-9690WsE1% (BldA) [Mass fraction]100 %Nikhil Tubbs [address] [place], [place] 9880102-22-2024 16:20-0500 Systolic blood kvublhmp428 mm[Hg]Nikhil Tubbs [address]02-20-2024 10:24-0500Body ziqkqqyivcn24.52 [degF]Jorge Rodrigueze [address] [place], [place] 9880102-20-2024 10:24-0500 Diastolic blood arrkelok02 mm[Hg]Jorge Rodrigueze [address] [place], [place] 9880102-20-2024 10:24-0500Heart rate85 /Sulma Mcintosh [address] [place], [place] 9880102-20-2024 10:24-0500 Respiratory rate18 /Sulma Mcintosh [address] [place], [place] 9880102-20-2024 10:24-8443MtO0% (BldA) [Mass fraction]96 %Jorge Mcintosh [address] [place], [place] 9880102-20-2024 10:24-0500 Systolic blood yvjhesue856 mm[Hg]Jorge Mcintosh [address] [place], [place] 9880102-18-2024 10:19-0500Body hihmgwwetrm01.88 [degF]Nikhil Tubbs [address] [place], [place] 9880102-18-2024 10:19-0500 Diastolic blood bcrffozk208 mm[Hg]Nikhil Tubbs [address] [place], [place] 9880102-18-2024 10:19-0500Heart rate82 /batoolNikhil Tubbs [address] [place], [place] 9880102-18-2024 10:19-0500 Respiratory rate18 /Lynette Arley [address] [place], [place] 9880102-18-2024 10:19-4195PlT7% (BldA) [Mass fraction]96 %Nikhil Tubbs [address] [place], [place] 9880102-18-2024 10:19-0500 Systolic blood sifgswvf524 mm[Hg]Nikhil Tubbs [address] [place], [place] 9880102-17-2024 16:23-0500Body kqfjfrajjzo62.88 [degF]Jorge Rodrigueze [address] [place], [place] 9880102-17-2024 16:23-0500 Diastolic blood wrqyrcsi663 mm[Hg]Jorge Mcintosh [address] [place], [place] 9880102-17-2024 16:23-0500Heart rate89 /Sulma Mcintosh [address] [place], [place] 9880102-17-2024 16:23-0500 Respiratory rate16 /Sulma Mcintosh [address] [place], [place] 9880102-17-2024 16:23-3870KyJ3% (BldA) [Mass fraction]97 %Jorge Arnaldo [address] [place], [place] 9880102-17-2024 16:23-0500 Systolic blood oevacvfk336 mm[Hg]Jorge Mcintosh [address] [place], [place] 9880102-14-2024 12:41-0500 Diastolic blood iudvjbbg32 mm[Hg][facility] 05-08-2023 12:41-0500Heart rate78 /[facility]02-14-2024 12:41-0500Mean blood ywdrwfng47 mm[Hg][facility] 12:41-0500Respiratory rate16 /[facility]-14-2024 12:41-3496IxD2% (BldA) [Mass fraction]95 %[facility]02-14-2024 12:41-0500Systolic blood atfitikf532 mm[Hg][facility]02-14-2024 12:00-0500Diastolic blood dysrywcr54 mm[Hg][facility]02-14-2024 12:00-0500Mean blood ysdvpjce97 mm[Hg][facility]02-14-2024 12:00-6756XgU3% (BldA) [Mass fraction]96 %[facility]02-14-2024 12:00-0500Systolic blood pressure 138 mm[Hg][facility]02-14-2024 11:27-0500Body qqkuyccqypu15.06 [degF][facility]02-14-2024 11:27-0500Diastolic blood ivxxexrm77 mm[Hg][facility]02-14-2024 11:27-0500Heart rate97 /[facility]02-14-2024 11:27-0500Respiratory rate18 /[facility]02-14-2024 11:27-6739PeV5% (BldA) [Mass fraction]95 %[facility]02-14-2024 11:27-0500Systolic blood pressure 166 mm[Hg][facility]02-11-2024 11:58-0500Body wutpek050.02 cmPHYSICIAN [facility]02-11-2024 11:58-0500Body vaxzfzyiqoi48.4 [degF]PHYSICIAN [facility]02-11-2024 11:58-0500Body apmfzd361.3 kgPHYSICIAN [facility]02-11-2024 11:58-0500Diastolic blood jealhqgy74 mm[Hg]PHYSICIAN NO [facility]02-11-2024 11:58-0500 Heart rate91 /minPHYSICIAN NO [facility]02-11-2024 11:58-0500Respiratory rate20 /minPHYSICIAN NO [facility]02-11-2024 11:58-5466ZfX3% (BldA) [Mass fraction]98 %PHYSICIAN NO [facility]02-11-2024 11:58-0500Systolic blood lvvxumeb752 mm[Hg]PHYSICIAN NO [facility]02-04-2024 00:38-0500 Diastolic blood trxybhii60 mm[Hg]Sal Juarez MD Work Phone: [phone] HospitalRqqpru93-60-1058 00:38-0500Heart rate76 /min Sal Juarez MD Work Phone: 1([phone])4[facility] HospitalFiuawl82-50-8257 00:38-0500Respiratory rate16 /minSal Juarez MD Work Phone: [phone])3[facility] HospitalPnwawd92-29-8511 00:38-3815KuJ9% (BldA) [Mass fraction]99 %Sal Juarez MD Work Phone: [phone] HospitalImrepk44-89-2041 00:38-0500Systolic blood pjqoekft194 mm[Hg]Sal Juarez MD Work Phone: [phone])3[facility] HospitalOdckbn62-78-9159 22:40-0500Body temperature 97.81 [degF]Sal Juarez MD Work Phone: [phone] HospitalUcosnd99-20-9528 09:29-0500Body temperature 97.52 [degF][facility]02-02-2024 09:29-0500 Diastolic blood mwoluaai59 mm[Hg][facility] 04-26-2023 09:29-0500Heart rate87 /[facility]20[facility] 09:29-0500Respiratory rate20 /[facility]02-02-2024 09:29-3130TeX0% (BldA) [Mass fraction]96 %[facility]02-02-2024 09:29-0500Systolic blood pressure 166 mm[Hg][facility]01-29-2024 20:11-0500Body daolsowckjq65.06 [degF]Pedro Pablo Chance [address] [place], [place] 4822601-29-2024 20:11-0500 Diastolic blood mm[Hg]Pedro Pablo Chance [address] [place], [place] 4822601-29-2024 20:11-0500Heart rate93 /minNoah Chance [address] [place], [place] 4822601-29-2024 20:11-0500 Respiratory rate18 /minNoah Chance [address] [place], [place] 4822601-29-2024 20:11-9635WrC3% (BldA) [Mass fraction]96 %Pedro Pablo Chance [address] [place], [place] 4822601-29-2024 20:11-0500 Systolic blood sadwkmbd363 mm[Hg]Pedro Pablo Chance [address] [place], [place] 4822601-19-2024 14:11-0500Body gdbihg824.02 [facility]-2024 14:11-0500Body yttlvfoqypn03.9 [degF][facility]01-19-2024 14:11-0500Body bszwtu646.5 kgC[facility]01-19-2024 14:11-0500Diastolic blood vtzxavic45 mm[Hg][facility]01-19-2024 14:11-0500 Heart rate99 /[facility]01-19-2024 14:11-0500 Respiratory rate18 /[facility]01-19-2024 14:11-0500 SaO2% (BldA) [Mass fraction]98 %[facility]01-19-2024 14:11-0500Systolic blood uifkyaaw764 mm[Hg][facility] 04-11-2023 18:31-0500Body linhksqazmy39.34 [degF][facility]01-18-2024 18:31-0500Diastolic blood rmgxihoz948 mm[Hg][facility]01-18-2024 18:31-0500Heart rate87 /min[facility]01-18-2024 18:31-0500Respiratory rate20 /[facility]01-18-2024 18:31-2904KoF5% (BldA) [Mass fraction]96 %[facility]01-18-2024 18:31-0500Systolic blood ardmfjlv708 mm[Hg][facility]01-18-2024 01:00-0500Hourly RoundingNoah Chance [address] [place], [place] 9880101-18-2024 01:00-0500 Promise to ReturnNoah Chance [address] [place], [place] 9880101-18-2024 00:00-0500 Hourly RoundingNoah Chance [address] [place], [place] 9880101-18-2024 00:00-0500 Promise to ReturnNoah Chance [address] [place], [place] 9880101-17-2024 23:00-0500 Hourly RoundingNoah Chance [address] [place], [place] [address]880101-17-2024 23:00-0500 Promise to ReturnNoah Chance [address] [place], [place] 9880101-17-2024 22:05-0500Body unpadacisla57.34 [degF]Pedro Pablo Chance [address] [place], [place] 9880101-17-2024 22:05-0500 Diastolic blood mrhkhpcy56 mm[Hg]Pedro Pablo Chance [address] [place], [place] [address]880101-17-2024 22:05-0500Heart rate80 /minNoah Chance [address] [place], [place] 4822601-17-2024 22:05-0500 Respiratory rate16 /minNoah Chance [address] [place], [place] 4822601-17-2024 22:05-8267BaE7% (BldA) [Mass fraction]95 %Pedro Pablo Chance [address] [place], [place] 4822601-17-2024 22:05-0500 Systolic blood mujxgfdr642 mm[Hg]Pedro Pablo Chance [address] [place], [place] 4822601-12-2024 15:30-0500 Diastolic blood eaxjyhzy19 mm[Hg]Nikhil Tubbs [address] [place], [place] 4822601-12-2024 15:30-0500Heart rate76 /minKevin Arley [address] [place], [place] 9880101-12-2024 15:30-0500Mean blood asgpkrar020 mm[Hg]Nikhil Tubbs [address] [place], [place] 9880101-12-2024 15:30-0500 Respiratory rate17 /minKevin Arley [address] [place], [place] 9880101-12-2024 15:30-3505FpF5% (BldA) [Mass fraction]97 %Nikhil Tubbs [address] [place], [place] 4822601-12-2024 15:30-0500 Systolic blood mqocmuwr744 mm[Hg]Nikhil Tubbs [address] [place], [place] 4822601-12-2024 15:00-0500 Diastolic blood hzksguic40 mm[Hg]Nikhil Tubbs [address] [place], [place] 9880101-12-2024 15:00-0500Heart rate84 /Lynette Tubbs [address] [place], [place] 4822601-12-2024 15:00-0500Mean blood yvlqjdca470 mm[Hg]Nikhil Tubbs [address] [place], [place] 4822601-12-2024 15:00-0500 Systolic blood gprjelsx264 mm[Hg]Nikhil Tubbs [address] [place], [place] 4822601-12-2024 14:30-0500 Diastolic blood jmxdofck48 mm[Hg]Nikhil Tubbs [address] [place], [place] 4822601-12-2024 14:30-0500Heart rate81 /Lynette Tubbs [address] [place], [place] 4822601-12-2024 14:30-0500Mean blood qfmbsubp14 mm[Hg]Nikhil Tubbs [address] [place], [place] 4822601-12-2024 14:30-0500 Respiratory rate18 /Lynette Tubbs [address] [place], [place] 4822601-12-2024 14:30-7718JyD3% (BldA) [Mass fraction]96 %Nikhil Tubbs [address] [place], [place] 9880101-12-2024 14:30-0500 Systolic blood zzoewotd896 mm[Hg]Nikhil Tubbs [address] [place], [place] 4822601-12-2024 12:34-0500Body simcvlahklk28.06 [degF]Nikhil Tubbs [address] [place], [place] 4822601-12-2024 12:34-0500Heart rate92 /Lynette Tubbs [address] [place], [place] 4822601-09-2024 21:43-0500Body .34 [degF]Elisa Sánchez [address] [place], [place] 4822601-09-2024 21:43-0500 Diastolic blood mm[Hg]Paulan Gonzalo [address] [place], [place] 4822601-09-2024 21:43-0500Heart rate96 /minPaulan Gonzalo [address] [place], [place] 9880101-09-2024 21:43-0500 Respiratory rate20 /Yoni Sánchez [address] [place], [place] 4822601-09-2024 21:43-6666RqE9% (BldA) [Mass fraction]96 %Elisa Sánchez [address] [place], [place] 4822601-09-2024 21:43-0500 Systolic blood hzevntzk172 mm[Hg]Elisa Sánchez [address] [place], [place] 4822601-08-2024 08:21-0500Body Nusrat Joseph MD Work Phone: [phone]01-08-2024 08:21-0500 Body mass index (BMI) [Ratio]43.22 kg/k3RqzzueChidi Joseph MD Work Phone: [phone]01-08-2024 08:21-0500 Body uejjhedyxpg75.5 [degF]Chidi Joseph MD Work Phone: [phone]01-08-2024 08:21-0500 Body kxsnsy171.68 kgChidi Joseph MD Work Phone: 1(480)182-[address] [place], [place] 7375501-08-2024 08:21-0500 Diastolic blood ljgoeeam78 mm[Hg]Chidi Joseph MD Work Phone: 1(983)984-[address] [place], [place] 7375501-08-2024 08:21-0500 Heart rate92 /minPierre Gholam MD Work Phone: [facility]01-08-2024 08:21-0500 Respiratory rate16 /minChidi Joseph MD Work Phone: [facility]01-08-2024 08:21-0500 Systolic blood hsbyjtuv259 mm[Hg]Chidi Joseph MD Work Phone: [facility]01-05-2024 10:06-0500 Body .02 cmAPRRadha Veliz Work Phone: [phone]01-05-2024 10:06-0500 Body pcppfhjqelx85.5 [degF]HOT BLASTER Felice Veliz Work Phone: [phone]01-05-2024 10:06-0500 Body qlyiyk173 kgAPRRadha Veliz Work Phone: 1(970)859-[address] [place], [place] 0882301-05-2024 10:06-0500 Diastolic blood wteupwfv12 mm[Hg]HOT BLASTER Felice Veliz Work Phone: 1([phone])012-[address] [place], [place] 0882301-05-2024 10:06-0500 Heart rate85 /minLUCASRadha Felice Veliz Work Phone: 1(284)947-[address] [place], [place] 0882301-05-2024 10:06-0500 Respiratory rate20 /minLUCASRadha Felice Veliz Work Phone: 1([phone])436-[address] [place], [place] [address]882301-05-2024 10:06-0500 SaO2% (BldA) [Mass fraction]96 %ELIZABETH Veliz Work Phone: [phone]-[facility]01-05-2024 10:06-0500 Systolic blood ixnudvdm212 mm[Hg]HOT BLASTER Felice Veliz Work Phone: 1(096)631-[address] [place], [place] 0882301-02-2024 12:43-0500 Diastolic blood rtiryxix05 mm[Hg]Jorge Mcintosh [facility]01-02-2024 12:43-0500Heart rate79 /minJorge Mcintosh [facility]01-02-2024 12:43-0500 Respiratory rate16 /minJorge Mcintosh [address] [place], [place] 9880101-02-2024 12:43-8882NtT3% (BldA) [Mass fraction]100 %Jorge Mcintosh [address] [place], [place] 9880101-02-2024 12:43-0500 Systolic blood negvfpik681 mm[Hg]Jorge Mcintosh [address] [place], [place] 9880101-02-2024 10:55-0500Body lcivqdlhgxj53.88 [degF]Jorge Mcintosh [address] [place], [place] 9880101-02-2024 10:55-0500 Diastolic blood dlrxejda91 mm[Hg]Jorge Mcintosh [address] [place], [place] 9880101-02-2024 10:55-0500Heart rate88 /Sulma Mcintosh [facility]01-02-2024 10:55-0500 Respiratory rate16 /Sulma Mcintosh [address] [place], [place] 9880101-02-2024 10:55-8207ZrT9% (BldA) [Mass fraction]95 %Jorge Mcintosh [address] [place], [place] 9880101-02-2024 10:55-0500 Systolic blood fneththe664 mm[Hg]Jorge Mcintosh [facility]12-31-2023 13:28-0500Body .02 cmAPRRadha Veliz Work Phone: [facility]12-31-2023 13:28-0500 Body frlufmzumka94.8 [degF]ELIZABETH Veliz Work Phone: [facility]12-31-2023 13:28-0500 Body rpispo747.3 kgAPRRadha Veliz Work Phone: [facility]12-31-2023 13:28-0500 Diastolic blood dyzdosry59 mm[Hg]ELIZABETH Veliz Work Phone: [facility]12-31-2023 13:28-0500 Heart rate72 /minELIZABETH Veliz Work Phone: [facility]12-31-2023 13:28-0500 Respiratory rate20 /minELIZABETH Veliz Work Phone: [facility]12-31-2023 13:28-0500 SaO2% (BldA) [Mass fraction]98 %ELIZABETH Veliz Work Phone: [facility]12-31-2023 13:28-0500 Systolic blood xtebibmi829 mm[Hg]ELIZABETH Veliz Work Phone: [phone]-[facility]12-30-2023 12:47-0500 Body hrjdhvkzdiv08.7 [degF]Nikhil Tubbs [address] [place], [place] 9880112-30-2023 12:47-0500 Diastolic blood jkssilul086 mm[Hg]Nikhil Tubbs [address] [place], [place] 9880112-30-2023 12:47-0500Heart rate77 /Lynette Tubbs [address] [place], [place] 9880112-30-2023 12:47-0500 Respiratory rate16 /minNikhil Tubbs [address] [place], [place] 9880112-30-2023 12:47-9072KnM4% (BldA) [Mass fraction]98 %Nikhil Tubbs [address] [place], [place] 9880112-30-2023 12:47-0500 Systolic blood dxyoejfs953 mm[Hg]Nikhil Tubbs [address] [place], [place] 9880112-27-2023 13:07-0500Body xaqlboyibrx24.06 [degF]Elisa Sánchez [address] [place], [place] [id number] 13:07-0500 Diastolic blood dpuqezlh16 mm[Hg]Elisa Sánchez [address] [place], [place] [id number] 13:07-0500Heart rate99 /minHoustoninn Dorobert [address] [place], [place] [id number] 13:07-0500 Respiratory rate16 /minPaualn Dovaleriaen [address] [place], [place] 4822612-27-2023 13:07-9094UoM3% (BldA) [Mass fraction]97 %Elisa Sánchez [address] [place], [place] 4822612-27-2023 13:07-0500 Systolic blood mm[Hg]Elisa Fuentesen [address] [place], [place] 4822612-18-2023 10:57-0500[facility]2023 10:57-0500Diastolic blood nlygfwcv47 mm[Hg][facility]18-20[facility] 10:57-0500Heart rate82 /min[facility]12-18-2023 10:57-0500Mean blood scjvhoil723 mm[Hg][facility]12-18-2023 10:57-0500Respiratory rate16 /[facility]-2023 10:57-9937LeK0% (BldA) [Mass fraction]97 %[facility]12-18-2023 10:57-0500Systolic blood mm[Hg]City [facility]23 10:13-0500Blood Pressure [facility] 03-11-2023 10:13-0500Diastolic blood mm[Hg][facility]12-18-2023 10:13-0500Heart rate64 /[facility]12-18-2023 10:13-0500Mean blood cjlmkton058 mm[Hg][facility]12-18-2023 10:13-0500Respiratory rate16 /min [facility]12-18-2023 10:13-4837LqG0% (BldA) [Mass fraction]95 %[facility]12-18-2023 10:13-0500Systolic blood klquoytj412 mm[Hg][facility]12-18-2023 09:02-0500Body .88 [degF][facility]12-18-2023 09:02-0500Diastolic blood nsfuznjy69 mm[Hg][facility]12-18-2023 09:02-0500Heart rate76 /min [facility]12-18-2023 09:02-0500Respiratory rate 20 /[facility]12-18-2023 09:02-2479ZtT2% (BldA) [Mass fraction]96 %[facility]12-18-2023 09:02-0500Systolic blood rgffahua928 mm[Hg][facility]12-16-2023 10:24-0500Body .02 cmPHYSICIAN [facility]12-16-2023 10:24-0500Body xjikfutcruk70.9 [degF]PHYSICIAN [facility]12-16-2023 10:24-0500Body kgPHYSICIAN [facility]12-16-2023 10:24-0500 Diastolic blood czasfeac81 mm[Hg]PHYSICIAN [facility]12-16-2023 10:24-0500Heart rate97 /minPHYSICIAN [facility]12-16-2023 10:24-0500Respiratory rate16 /minPHYSICIAN [facility]12-16-2023 10:24-7422ErI6% (BldA) [Mass fraction]96 %PHYSICIAN [facility]12-16-2023 10:24-0500Systolic blood adhgnmry172 mm[Hg]PHYSICIAN [facility]11-30-2023 17:00-0500Body uftywl408.02 cmSChameleon Collective Work Phone: 1(543)323-[address] [place], [place] 0882311-30-2023 17:00-0500 Body uzwznn940.95 [facility]Serrox[facility] [employer] Work Phone: [phone]11-30-2023 16:59-0500 Body oypdoremnwm14.3 [degF]Services [employer] Work Phone: [phone])362-[address] [place], [place] 0882311-30-2023 16:59-0500 Diastolic blood imwkejwv95 mm[Hg]Services [employer] Phone: 1(561)576-[address] [place], [place] 0882311-30-2023 16:59-0500 Heart rate91 /[employer] Work Phone: [phone])704-[address] [place], [place] 0882311-30-2023 16:59-0500 Respiratory rate20 /[employer] Work Phone: [phone])993-[facility]11-30-2023 16:59-0500 SaO2% (BldA) [Mass fraction]97 %Services [employer] Phone: [phone]-[facility]11-30-2023 16:59-0500 Systolic blood nsyjxcgf964 mm[Hg]Services [employer] Phone: [phone])587-[address] [place], [place] [address]1111-21-2023 19:48-0500 Body vecnqjmxrxz16.06 [degF]Pedro Pablo Theorem [facility]11-21-2023 19:48-0500 Diastolic blood adgsdngl73 mm[Hg]Pedro Pablo Chance [facility]11-21-2023 19:48-0500Heart rate98 /minNo Chance [facility]11-21-2023 19:48-0500 Respiratory rate18 /minNoah Chance [facility]11-21-2023 19:48-1332QeO5% (BldA) [Mass fraction]100 %Pedro Pablo [facility]11-21-2023 19:48-0500 Systolic blood hyxhwnek574 mm[Hg][facility]11-17-2023 17:18-0500Body ihathx881.02 cmSlincoln [facility] [employer] Work Phone: [facility]11-17-2023 17:18-0500 Body gatgrlmxeeb79.5 [degF]Services [employer] Work Phone: [facility]11-17-2023 17:18-0500 Body iwqxov282.86 [facility]Serrox[facility] [employer] Work Phone: [facility]11-17-2023 17:18-0500 Diastolic blood vyztzylb996 mm[Hg]Services [employer] Work Phone: [facility]11-17-2023 17:18-0500 Heart rate98 /[employer] Work Phone: [facility]11-17-2023 17:18-0500 Respiratory rate18 /[employer] Work Phone: [facility]11-17-2023 17:18-0500 SaO2% (BldA) [Mass fraction]98 %Services [employer] Phone: [facility]11-17-2023 17:18-0500 Systolic blood tjbnqumv222 mm[Hg]Services [employer] Work Phone: [facility]11-16-2023 19:28-0500 Body apxrfgbxtgd55.88 [degF]Elisa Sánchez [address]11-16-2023 19:28-0500 Diastolic blood axaiesnt57 mm[Hg]Elisa Sánchez [address] [place], [place] [address]880111-16-2023 19:28-0500Heart muzv566 /Yoni Sánchez [address] [place], [place] 9880111-16-2023 19:28-0500 Respiratory rate18 /Yoni Sánchez [address]11-16-2023 19:28-7041NkV2% (BldA) [Mass fraction]99 %Elisa Sánchez [address]11-16-2023 19:28-0500 Systolic blood mm[Hg]magalis Sánchez [address]11-13-2023 13:13-0500 Diastolic blood cfkelnyv24 mm[Hg]Services [employer] Work Phone: [facility]11-13-2023 13:13-0500 Heart rate95 /minSChameleon Collective Work Phone: [facility]11-13-2023 13:13-0500 Respiratory rate18 /[facility]uevorapromedica [facility] hospitalOceansblue Systems Work Phone: [facility]11-13-2023 13:13-0500 SaO2% (BldA) [Mass fraction]99 %Services [employer] Work Phone: [facility]11-13-2023 13:13-0500 Systolic blood purjcaop426 mm[Hg]Services [employer] Work Phone: [facility]11-13-2023 11:54-0500 Body qrvnut347.02 [facility] Work Phone: [phone]11-13-2023 11:54-0500 Body euuailizszo31.1 [degF]Services [employer] Work Phone: [phone]11-13-2023 11:54-0500 Body dwokht731.15 kgSerroxbury treatment center [employer] Work Phone: [phone]11-11-2023 13:17-0500 Body pbfipy493.02 [facility] Hospital[facility] Collect[facility] Work Phone: [phone])98396 [address]11-11-2023 13:17-0500 Body pcowsudherz54.7 [degF]Services [employer] Work Phone: [phone])27696 [address]11-11-2023 13:17-0500 Body qhymkt856.2 [facility]Serrox[facility] center [employer] Work Phone: [phone] [address]11-11-2023 13:17-0500 Diastolic blood ntacpmqg53 mm[Hg]Services [employer] Work Phone: [phone])73196 [address]11-11-2023 13:17-0500 Heart rate96 /[employer] Work Phone: [phone])47396 [address]11-11-2023 13:17-0500 Respiratory rate24 /[facility] Collect[facility] Work Phone: [phone])733-[address] [place], [place] 0882311-11-2023 13:17-0500 SaO2% (BldA) [Mass fraction]98 %Services [employer] Work Phone: 1(863)242-[address] [place], [place] [address]2311-11-2023 13:17-0500 Systolic blood ajtpwvcv405 mm[Hg]Services [employer] Work Phone: [phone])[address]11-07-2023 11:35-0500 Body .06 [degF]Jorge Mcintosh [facility]11-07-2023 11:35-0500 Diastolic blood yetmbrhm48 mm[Hg]Jorge Mcintosh [facility]11-07-2023 11:35-0500Heart rate84 /Sulma Mcintosh [facility]11-07-2023 11:35-0500 Respiratory rate18 /minJorge Mcintosh [facility]11-07-2023 11:35-3172IhW0% (BldA) [Mass fraction]97 %Jorge Mcintosh [facility]11-07-2023 11:35-0500 Systolic blood sobvduwz322 mm[Hg]Jorge Mcintosh [facility]11-05-2023 10:41-0500Body bqmjok198.19 cmSlincoln hospital [employer] Work Phone: [phone]-[facility]11-05-2023 10:41-0500 Body reezwz634 kgServic [employer] Work Phone: [phone] [place], [place] [address]882311-05-2023 10:39-0500 Body yltittlebvh52.2 [degF]Services [facility] [employer] Work Phone: [phone] [place], [place] [address]882311-05-2023 10:39-0500 Diastolic blood mqygbaqg346 mm[Hg]Services [employer] Work Phone: [phone]-[facility]11-05-2023 10:39-0500 Heart rate96 /minServOceansblue Systems Work Phone: [phone]-[facility]11-05-2023 10:39-0500 Respiratory rate18 /minSpromedica bay park hospitalOceansblue Systems Work Phone: [facility]11-05-2023 10:39-0500 SaO2% (BldA) [Mass fraction]98 %Services [employer] Work Phone: [facility]11-05-2023 10:39-0500 Systolic blood uawhjkra170 mm[Hg]Services [employer] Work Phone: [facility]11-01-2023 13:19-0400 Body kankiq016.02 cmSlincoln hospital [employer] Work Phone: [phone])820-[address] [place], [place] 0882311-01-2023 13:19-0400 Body uirfrlmzvfv88.4 [degF]Services [facility] [employer] Work Phone: [phone] [address]11-01-2023 13:19-0400 Body excdhf886.4 kgSerdaniel freeman memorial hospitales [facility] [employer] Work Phone: 1(537)401-[address] [place], [place] [address]882311-01-2023 13:19-0400 Diastolic blood mm[Hg]Services [facility] [employer] Work Phone: [phone] [address]11-01-2023 13:19-0400 Heart rate81 /[facility] Work Phone: [phone])26396 [address]11-01-2023 13:19-0400 Respiratory rate20 /[facility] Work Phone: 1(624)455-[address] [place], [place] 0882311-01-2023 13:19-0400 SaO2% (BldA) [Mass fraction]99 %Services [facility] [employer] Phone: 1([phone])093-[address] [place], [place] 0882311-01-2023 13:19-0400 Systolic blood mm[Hg]Services [facility] [employer] Phone: [phone])933-[address] [place], [place] 0882310-31-2023 18:48-0400 Body cdecghxssdb58.52 [degF][facility] 01-22-2023 18:48-0400Diastolic blood npulyqew06 mm[Hg][facility]10-31-2023 18:48-0400Heart rate85 /minCity [facility]10-31-2023 18:48-0400Respiratory rate16 /[facility]10-31-2023 18:48-0967AzF6% (BldA) [Mass fraction]96 %[facility]10-31-2023 18:48-0400Systolic blood mm[Hg][facility]10-31-2023 13:45-0400Body cmJori Harman MD PhD Work Phone: [phone] [place], [place] 5025410-31-2023 13:45-0400 Body mass index (BMI) [Ratio]43.08 kg/i7UcbwfxJori Harman MD PhD Work Phone: [phone])[address] [place], [place] 5025410-31-2023 13:45-0400 Body mjpgxnrmzyc32.8 [degF]Jori Harman MD PhD Work Phone: [phone])[address] [place], [place] 5025410-31-2023 13:45-0400 Body yctzeq694.31 kgJori Harman MD PhD Work Phone: [phone])[address] [place], [place] 5025410-31-2023 13:45-0400 Diastolic blood kmubhyhi36 mm[Hg]Jori Harman MD PhD Work Phone: 1([phone])[address] [place], [place] 5025410-31-2023 13:45-0400 Heart rate97 /Miriam Harman MD PhD Work Phone: 1(216)[address] [place], [place] 5025410-31-2023 13:45-0400 Systolic blood ckwmaeac260 mm[Hg]Jori Harman MD PhD Work Phone: 1(216)[address] [place], [place] 5025410-24-2023 13:20-0400 Body tsxhka860 cmSean Newbill PA-C Work Phone: [phone] [place], [place] 9837110-24-2023 13:20-0400 Body mass index (BMI) [Ratio]44.04 kg/m2Sean Newbill PA-C Work Phone: 1(101)[address] [place], [place] 9837110-24-2023 13:20-0400 Body igfzfpqiuut01.5 [degF]Antonio Newbill PA-C Work Phone: 1(473)[address] [place], [place] 9837110-24-2023 13:20-0400 Body oojjdf491.76 kgSean Newbill PA-C Work Phone: [facility]10-24-2023 13:20-0400 Diastolic blood pkskigrr27 mm[Hg]Antonio Mcelroyl PA-C Work Phone: [facility]10-24-2023 13:20-0400 Heart rate92 /minSearadha Mcelroyl PA-C Work Phone: [facility]10-24-2023 13:20-0400 SaO2% (BldA) [Mass fraction]94 %Antonio Husain PA-C Work Phone: [facility]10-24-2023 13:20-0400 Systolic blood lggoyyzh117 mm[Hg]Antonio Husain PA-C Work Phone: [facility]10-23-2023 14:35-0400 Body zubusdrhgou55.52 [degF]Jorge Mcintosh [address] [place], [place] 9880110-23-2023 14:35-0400 Diastolic blood jgtkhutp52 mm[Hg]Jorge Mcintosh [address] [place], [place] 9880110-23-2023 14:35-0400Heart rate81 /minJorge Mcintosh [address] [place], [place] 9880110-23-2023 14:35-0400 Respiratory rate22 /minJomillicent Mcintosh [facility]10-23-2023 14:35-4079BfJ5% (BldA) [Mass fraction]95 %Jorge Mcintosh [facility]10-23-2023 14:35-0400 Systolic blood jgaxcojc801 mm[Hg]Jorge Mcintosh [address] [place], [place] 9880110-21-2023 21:30-0400Body kvgotfkksff60.06 [degF][facility]zanderC[facility]10-21-2023 21:30-0400Diastolic blood pewgifhx11 mm[Hg][facility]10-21-2023 21:30-0400Heart rate78 /minCity [facility]10-21-2023 21:30-0400Mean blood cpopjfvo691 mm[Hg][facility]10-21-2023 21:30-0400Respiratory rate16 /min[facility]10-21-2023 21:30-8288ZnT8% (BldA) [Mass fraction]98 %[facility]10-21-2023 21:30-0400Systolic blood iqfkovwj347 mm[Hg][facility]10-21-2023 21:00-0400Diastolic blood ulbpieic09 mm[Hg][facility]10-21-2023 21:00-0400Heart rate70 /minCity [facility]10-21-2023 21:00-0400Mean blood nwowspnq52 mm[Hg][facility]10-21-2023 21:00-0400Systolic blood guyqjacs631 mm[Hg][facility]10-21-2023 20:24-0400Body yynnhobtgbk67.06 [degF][facility]10-21-2023 20:24-0400Diastolic blood khusmigi47 mm[Hg][facility]10-21-2023 20:24-0400Heart rate79 /min[facility]10-21-2023 20:24-0400Respiratory rate20 /[facility] 01-12-2023 20:24-3733XyB6% (BldA) [Mass fraction]97 %[facility]10-21-2023 20:24-0400Systolic blood tfogbybm494 mm[Hg][facility]10-21-2023 10:20-0400Body .02 cm Services [employer] Work Phone: [phone]-[facility]10-21-2023 10:20-0400 Body swfoupwvzqo53.8 [degF]Services [facility] [employer] Work Phone: 1([phone] [place], [place] [address]2310-21-2023 10:20-0400 Body dkapbi386.39 kgServices [employer] Work Phone: 1(175)516-[address] [place], [place] [address]2310-21-2023 10:20-0400 Diastolic blood xofpzaok13 mm[Hg]Services [facility] [employer] Work Phone: 1(027)872-[address] [place], [place] [address]2310-21-2023 10:20-0400 Heart rate79 /[employer] [facility] [employer] Work Phone: [phone] [place], [place] [address]2310-21-2023 10:20-0400 Respiratory rate18 /minServVadio [place] Work Phone: 1(879)898-[address] [place], [place] [address]2310-21-2023 10:20-0400 SaO2% (BldA) [Mass fraction]96 %Services [facility] [employer] Work Phone: [phone])207-[address] [place], [place] [address]882310-21-2023 10:20-0400 Systolic blood wmwunwba506 mm[Hg]Services [facility] [employer] Phone: [phone]-[facility]10-19-2023 10:32-0400 Body iikmovrrwwt43.88 [degF]Nikhil Tubbs [facility]10-19-2023 10:32-0400 Diastolic blood gbbzgtfo87 mm[Hg]Nikhil Tubbs [facility]10-19-2023 10:32-0400Heart rate75 /Lynette Tubbs [facility]10-19-2023 10:32-0400 Respiratory rate18 /minNikhil Tubbs [facility]10-19-2023 10:32-1671MkY4% (BldA) [Mass fraction]98 %Nikhil Tubbs [facility]10-19-2023 10:32-0400 Systolic blood kaavrmlv536 mm[Hg]Nikhil Tubbs [facility]10-19-2023 08:40-0400Body zmgqyw252.56 cmDale Meza Other [employer] Other 10-19-2023 08:40-0400Body mass index (BMI) [Ratio] 43.94 kg/m2Dale Meza Other [employer] Other 10-19-2023 08:40-0400Body lrukir884.12 kgDale Meza Other [employer] Other 10-16-2023 11:04-0400Body tjirbf041.02 cmSChameleon Collective Work Phone: [phone]-[facility] ClinicsAnyone HomeC[facility]10-16-2023 11:04-0400 Body blpidwbvifq26.5 [degF]Services [employer] Phone: [phone]-[facility]icsAnyone HomeC[facility]10-16-2023 11:04-0400 Body .86 kgSerdaniel freeman memorial hospitales [employer] Phone: [phone]-[facility] ClinicsAnyone HomeC[facility]10-16-2023 11:04-0400 Diastolic blood xygcnngf94 mm[Hg]Services [employer] Phone: [phone]-sliceXCrystal Clinic Orthopedic Center10-16-2023 11:04-0400 Heart rate75 /[employer] Phone: [phone]-[facility] ClinicsAnyone HomeC[facility]10-16-2023 11:04-0400 Respiratory rate18 /[employer] Phone: [phone]-sliceXCrystal Clinic Orthopedic Center10-16-2023 11:04-0400 SaO2% (BldA) [Mass fraction]97 %Services [employer] Phone: [phone]-[facility] ClinicsAnyone [facility]10-16-2023 11:04-0400 Systolic blood zlcqcixb344 mm[Hg]Services [place] Work Phone: [facility]10-13-2023 23:07-0400 Diastolic blood koauwvfb58 mm[Hg][facility] 01-04-2023 23:07-0400Heart rate77 /minCity Hospital10-13-2023 23:07-0400Respiratory rate18 /[facility]10-13-2023 23:07-0406PpJ0% (BldA) [Mass fraction]95 %[facility]10-13-2023 23:07-0400Systolic blood pressure 124 mm[Hg][facility]10-13-2023 21:12-0400Body sbopwsewgbe21.88 [degF][facility]10-13-2023 21:12-0400Diastolic blood luniibpw27 mm[Hg][facility]10-13-2023 21:12-0400Heart rate81 /[facility]10-13-2023 21:12-0400Respiratory rate16 /[facility]10-13-2023 21:12-6396UrM6% (BldA) [Mass fraction]98 %[facility]10-13-2023 21:12-0400Systolic blood pressure 121 mm[Hg][facility]10-13-2023 15:17-0400Body hxjihx442.02 cmServices [place] Work Phone: [facility]10-13-2023 15:17-0400 Body qadilienqbm64.5 [degF]Services [place] Work Phone: [facility]10-13-2023 15:17-0400 Body huyzob389.86 kgSerSpotsylvania Regional Medical [facility] Work Phone: [facility]10-13-2023 15:17-0400 Diastolic blood mm[Hg]Services [facility] [employer] Work Phone: [facility]10-13-2023 15:17-0400 Heart rate97 /minServNukotoys [facility] Work Phone: [facility]10-13-2023 15:17-0400 Respiratory rate18 /minSWayside Emergency Hospital [employer] Work Phone: [facility]10-13-2023 15:17-0400 SaO2% (BldA) [Mass fraction]96 %Services [facility] [employer] Work Phone: [facility]10-13-2023 15:17-0400 Systolic blood jhxftogc742 mm[Hg][facility] Work Phone: [facility]10-11-2023 16:07-0400 Body otzhhyzziwb64.88 [degF]Nikhil Tubbs [address]10-11-2023 16:07-0400 Diastolic blood gaxvzjwp45 mm[Hg]Nikhil Arley [address]10-11-2023 16:07-0400Heart rate67 /Lynette Tubbs [address] [place], [place] 9880110-11-2023 16:07-0400 Respiratory rate18 /minAryanene Arley [address] [place], [place] 9880110-11-2023 16:07-4062WbU7% (BldA) [Mass fraction]93 %Nikhil Tubbs [address] [place], [place] 9880110-11-2023 16:07-0400 Systolic blood rebxpfwj167 mm[Hg]Nikhil Tubbs [facility]10-06-2023 14:48-0400Heart rate97 /minSSCCI Hospital [facility] Work Phone: 1([phone] [place], [place] 0882310-06-2023 13:09-0400 Body mtevwu768.02 cmServices [employer] Work Phone: 1(892)[address] [place], [place] 8930110-06-2023 13:09-0400 Body zikqfrcpwmf24.3 [degF]Services [facility] [employer] Work Phone: 1(604)[address] [place], [place] 8930110-06-2023 13:09-0400 Body cjoiqy840.86 kgServices [employer] Work Phone: 1(678)[address] [place], [place] 8930110-06-2023 13:09-0400 Diastolic blood wavclwsl46 mm[Hg]Services [facility] [employer] Phone: 1(017)[address] [place], [place] 8930110-06-2023 13:09-0400 Respiratory rate20 /minServtanner [facility] [employer] Work Phone: 1(732)[address] [place], [place] 8930110-06-2023 13:09-0400 SaO2% (BldA) [Mass fraction]100 %Services [facility] [employer] Phone: 1([phone])[address] [place], [place] 8930110-06-2023 13:09-0400 Systolic blood pnswawgf423 mm[Hg]Services [facility] [employer] Phone: 1(704)[address] [place], [place] 8930110-05-2023 08:40-0400 Body dbwowy712.56 cmSelect [facility] Other FantasySalesTeamcam[facility] [employer] Other Phone: [phone] 08:40-0400Body mass index (BMI) [Ratio] 42.05 kg/w1AuvvuojSurvios Other [employer] Other 10-05-2023 08:40-0400Body fcdyep346.13 kgCOGEON Other [employer] Other 10-04-2023 16:28-0400Body bxyhshnexbz62.06 [degF] [facility]10-04-2023 16:28-0400Diastolic blood gipblryp32 mm[Hg][facility]10-04-2023 16:28-0400Heart rate74 /minCity [facility]10-04-2023 16:28-0400Respiratory rate18 /minCity [facility] 12-26-2022 16:28-0617LsS6% (BldA) [Mass fraction]98 %[facility]10-04-2023 16:28-0400Systolic blood rkxomktu829 mm[Hg][facility]10-04-2023 13:15-0400Body tsewnv212.56 cm Glen Garza Other [facility] [employer] Other 10-04-2023 13:15-0400Body mass index (BMI) [Ratio] 42.74 kg/n9RhyclvGlen Garza Other FantasySalesTeamcam[facility] [employer] Other 10-04-2023 13:15-0400Body nanpyv888.95 kgGlen Garza Other [employer] Other 10-04-2023 13:15-0400Diastolic blood zaakiptc80 mm[Hg] Glen Garza Other [facility] [employer] Other 10-04-2023 13:15-9328LnO6% (BldA) [Mass fraction]98 % Glen Garza Other [employer] Other 10-04-2023 13:15-0400Systolic blood wftozsjq207 mm[Hg] Glen Garza Other [employer] Other 10-02-2023 12:28-0400Body ophbvq475.02 [facility] Work Phone: [phone]10-02-2023 12:28-0400 Body hzzfijwnxcm42.8 [degF]Services [facility] [employer] Work Phone: [phone]10-02-2023 12:28-0400 Body kgServicWellmont Lones[facility] Work Phone: [phone])[address]10-02-2023 12:28-0400 Diastolic blood yyykpufk57 mm[Hg]Services [facility] [employer] Work Phone: [phone]10-02-2023 12:28-0400 Heart rate82 /minServVadio [place] Work Phone: 1([phone])[address] [place], [place] 8[address]0110-02-2023 12:28-0400 Respiratory rate20 /minServices [place] Work Phone: [phone] [address]10-02-2023 12:28-0400 SaO2% (BldA) [Mass fraction]100 %Services [facility] [employer] Work Phone: 1(689)589-[address] [place], [place] 0882310-02-2023 12:28-0400 Systolic blood bnxkdbov334 mm[Hg]Services [place] Work Phone: [phone] [address]10-01-2023 16:55-0400 Body lgbyxcbtptj21.7 [degF]Nikhil Tubbs [facility]10-01-2023 16:55-0400 Diastolic blood ibwcrujq27 mm[Hg]Nikhil Tubbs [facility]10-01-2023 16:55-0400Heart rate81 /minNikhil Tubbs [facility]10-01-2023 16:55-0400 Respiratory rate20 /minNikhil Tubbs [facility]10-01-2023 16:55-0701LjF8% (BldA) [Mass fraction]98 %Nikhil Tubbs [facility]10-01-2023 16:55-0400 Systolic blood cyqgermh981 mm[Hg]Nikhil Tubbs [facility]09-29-2023 16:11-0400Body vazipg587.02 [facility] Work Phone: [facility]09-29-2023 16:11-0400 Body kzfotc048 kgSerdaniel freeman memorial hospitales [employer] Work Phone: [facility]09-29-2023 16:10-0400 Body edhzsbehjcd32.8 [degF]Services [employer] Work Phone: [facility]09-29-2023 16:10-0400 Diastolic blood acecfdzn39 mm[Hg]Services [facility] [employer] Work Phone: [phone]-[facility]09-29-2023 16:10-0400 Heart rate87 /[facility] Work Phone: [facility]09-29-2023 16:10-0400 Respiratory rate16 /[facility] Work Phone: [facility]09-29-2023 16:10-0400 SaO2% (BldA) [Mass fraction]97 %Services [employer] Work Phone: [facility]09-29-2023 16:10-0400 Systolic blood uvlqfath027 mm[Hg][facility] [employer] Work Phone: [facility]09-26-2023 12:25-0400 Body .06 [degF]Jorge Mcintosh [facility]09-26-2023 12:25-0400 Diastolic blood tenzatkv87 mm[Hg]Jorge Mcintosh [facility]09-26-2023 12:25-0400Heart rate77 /Sulma Rodrigueze [place] [facility]09-26-2023 12:25-0400 Respiratory rate18 /minJorge Arnaldo [facility]09-26-2023 12:25-1819YiB9% (BldA) [Mass fraction]98 %Jorge Mcintosh [facility]09-26-2023 12:25-0400 Systolic blood cyswwsml306 mm[Hg]Jorge Mcintosh [facility]09-22-2023 15:12-0400Body oghhtc751.02 cmSpromedica bay park hospitalOceansblue Systems Work Phone: [facility]09-22-2023 15:12-0400 Body eddyaesjlsd55.1 [degF]Services [employer] Phone: 1(267)592-[address] [place], [place] [address]882309-22-2023 15:12-0400 Body fzvwut374.86 kgSerroxbury treatment center [employer] Phone: 1(126)806-[facility]09-22-2023 15:12-0400 Diastolic blood qprllvmo90 mm[Hg]Services [employer] Work Phone: 1([phone])429-[facility]09-22-2023 15:12-0400 Heart rate93 /[facility] ArizonaOceans[facility] Systems Work Phone: [phone]-[facility]09-22-2023 15:12-0400 Respiratory rate20 /[facility] [employer] Work Phone: [phone]-[facility]09-22-2023 15:12-0400 SaO2% (BldA) [Mass fraction]97 %Services [employer] Phone: 1([phone])900-[facility]09-22-2023 15:12-0400 Systolic blood xofclsxn028 mm[Hg]Services [employer] Phone: [phone]-[facility]09-21-2023 18:33-0400 Diastolic blood weeffgsy39 mm[Hg]Nikhil Tubbs [facility]09-21-2023 18:33-0400Heart rate61 /minNikhil Tubbs [facility]09-21-2023 18:33-0400Mean blood uqemqpqd41 mm[Hg]Nikhil Tubbs [address] [place], [place] 4822609-21-2023 18:33-7837BrD3% (BldA) [Mass fraction]97 %Nikhil Tubbs [address] [place], [place] 4822609-21-2023 18:33-0400 Systolic blood dnrpoxix536 mm[Hg]Nikhil Tubbs [address] [place], [place] 4822609-21-2023 18:13-0400 Diastolic blood xfrotknw03 mm[Hg]Nikhil Tubbs [address] [place], [place] 4822609-21-2023 18:13-0400Heart rate73 /minNikhil Tubbs [address] [place], [place] 4822609-21-2023 18:13-0400Mean blood nrvudajv36 mm[Hg]Nikhil Tubbs [address] [place], [place] 4822609-21-2023 18:13-0400 Respiratory rate20 /minNikhil Tubbs [address] [place], [place] 4822609-21-2023 18:13-9083TjV0% (BldA) [Mass fraction]98 %Nikhil Tubbs [address] [place], [place] 4822609-21-2023 18:13-0400 Systolic blood orbsozul441 mm[Hg]Nikhil Tubbs [address] [place], [place] 4822609-21-2023 17:22-0400Body tojgeslqkkp45.06 [degF]Nikhil Tubbs [address] [place], [place] 4822609-21-2023 17:22-0400 Diastolic blood wpqkpdit92 mm[Hg]Nikhil Tubbs [address] [place], [place] 4822609-21-2023 17:22-0400Heart rate63 /minNikhil Tubbs [address] [place], [place] 4822609-21-2023 17:22-0400 Respiratory rate22 /minNikhil Tubbs [address] [place], [place] 4822609-21-2023 17:22-0225QhE4% (BldA) [Mass fraction]98 %Nikhil Arley [address] [place], [place] 4822609-21-2023 17:22-0400 Systolic blood fpsidkgx183 mm[Hg]Nikhil Arley [address] [place], [place] 4822609-21-2023 00:15-0400 Diastolic blood aydzhvbt17 mm[Hg]Kaylinn Dokken [address] [place], [place] 4822609-21-2023 00:15-0400Heart rate65 /minKaylinn Dokken [address] [place], [place] 4822609-21-2023 00:15-0400Mean blood qjgtwugh18 mm[Hg]Kaylinn Dokken [address] [place], [place] 4822609-21-2023 00:15-0400 Respiratory rate16 /minKaylinn Dokken [address] [place], [place] 4822609-21-2023 00:15-3709CaI7% (BldA) [Mass fraction]96 %Kaylinn Dokken [address] [place], [place] 4822609-21-2023 00:15-0400 Systolic blood ulpbljlg663 mm[Hg]Kaylinn Dokken [address] [place], [place] 4822609-20-2023 23:39-0400 Diastolic blood ofbcvnvb47 mm[Hg]Kaylinn Dokken [address] [place], [place] 4822609-20-2023 23:39-0400Heart rate70 /minKaylinn Dokken [address] [place], [place] 4822609-20-2023 23:39-0400Mean blood mm[Hg]Kaylinn Dokken [address] [place], [place] 4822609-20-2023 23:39-0400 Respiratory rate25 /minKaylinn Dokken [address] [place], [place] 4822609-20-2023 23:39-4052SjW5% (BldA) [Mass fraction]95 %Kaylinn Dokken [address] [place], [place] 4822609-20-2023 23:39-0400 Systolic blood pfpuvgxl838 mm[Hg]Kaylinn Dokken [address] [place], [place] 4822609-20-2023 22:59-0400 Diastolic blood mfwxhjay63 mm[Hg]Kaylinn Dokken [address] [place], [place] 4822609-20-2023 22:59-0400Heart rate69 /minKaylinn Dokken [address] [place], [place] 4822609-20-2023 22:59-0400Mean blood hfkhojrb54 mm[Hg]Kaylinn Dokken [address] [place], [place] 4822609-20-2023 22:59-0400 Respiratory rate18 /minKaylinn Dokken [address] [place], [place] 4822609-20-2023 22:59-0506RgU9% (BldA) [Mass fraction]95 %Kaylinn Dokken [address] [place], [place] 4822609-20-2023 22:59-0400 Systolic blood zguunlvs408 mm[Hg]Kaylinn Dokken [address] [place], [place] 4822609-20-2023 22:04-0400 Respiratory rate18 /minKaylinn Dokken [address] [place], [place] 4822609-20-2023 20:58-0400Body rqojvigxzjw08.24 [degF]Kaylinn Dokken [facility]09-20-2023 20:58-0400Heart rate79 /Yoni Sánchez [facility]09-20-2023 20:58-0400 Respiratory rate18 /Yoni Sánchez [facility]09-20-2023 10:45-0400 Diastolic blood yaxrblxm53 mm[Hg]Services [employer] Work Phone: 1([phone])[address]09-20-2023 10:45-0400 Heart rate84 /[employer] Work Phone: 1(997)81896 [address]09-20-2023 10:45-0400 Respiratory rate16 /[employer] Work Phone: 1(783)53296 [address]09-20-2023 10:45-0400 SaO2% (BldA) [Mass fraction]100 %Services [employer] Work Phone: 1(233)71296 [address]09-20-2023 10:45-0400 Systolic blood gcyhxorq994 mm[Hg]Services [employer] Work Phone: 1(653)73096 [address]09-20-2023 09:01-0400 Body .56 cmServtanner medical [facility] [employer] Work Phone: 1(408)661-[address] [place], [place] [address]882309-20-2023 09:01-0400 Body .03 kgServices [employer] Work Phone: 1(047)558-[facility]09-19-2023 17:19-0400 Diastolic blood lyrdizns66 mm[Hg]Services [employer] Work Phone: 1(473)215-[address] [place], [place] [address]882309-19-2023 17:19-0400 Heart rate70 /[employer] Work Phone: 1(109)912-[address] [place], [place] 0882309-19-2023 17:19-0400 Respiratory rate20 /[employer] Work Phone: 1(419)[address] [place], [place] 8930109-19-2023 17:19-0400 SaO2% (BldA) [Mass fraction]97 %Services [employer] Work Phone: 1(558)50696 [address]09-19-2023 17:19-0400 Systolic blood anctpqbs150 mm[Hg]Services [employer] Work Phone: 1(717)52496 [address]09-19-2023 14:58-0400 Body gyiera960.02 [facility] HospitalCh[facility]le[facility] Collective Work Phone: 1(449)47096 [address]09-19-2023 14:58-0400 Body xmxlsinhnte61.7 [degF]Services [employer] Work Phone: 1(876)48596 [address]09-19-2023 14:58-0400 Body .86 kgSerdaniel freeman memorial hospitalSpecialized Vascular Technologies Work Phone: 1(378)04096 [address]09-18-2023 17:46-0400 Body .02 [facility] HospitalCh[facility]le[facility] Collect[facility] Work Phone: 1(847)80796 [address]09-18-2023 17:46-0400 Body zgpcyfiojby28.2 [degF]Services [facility] [employer] Work Phone: 1(153)10[address]09-18-2023 17:46-0400 Body .86 kgSerdaniel freeman memorial hospitalClearMomentum Phone: 1(658)53696 [address]09-18-2023 17:46-0400 Diastolic blood xjaseicy40 mm[Hg]Services [employer] Work Phone: 1(038)690-[address] [place], [place] 0882309-18-2023 17:46-0400 Heart rate97 /[employer] Work Phone: 1(412)499-[address] [place], [place] 0882309-18-2023 17:46-0400 Respiratory rate15 /[employer] Work Phone: 1(622)53096 [address]09-18-2023 17:46-0400 SaO2% (BldA) [Mass fraction]99 %Services [employer] Work Phone: 1(554)262-[address] [place], [place] [address]882309-18-2023 17:46-0400 Systolic blood mm[Hg]Services [employer] Work Phone: 1(483)138-[facility]09-17-2023 16:38-0400 Body tmakjx961.02 cmSlincoln hospital [employer] Work Phone: 1(083)13496 [address]09-17-2023 16:38-0400 Body losagqzxbmu77.7 [degF]Services [facility] [employer] Work Phone: 1(757)633-[address] [place], [place] [address]882309-17-2023 16:38-0400 Body .32 kgSerroxbury treatment center [employer] Work Phone: 1(112)628-[facility]09-17-2023 16:38-0400 Diastolic blood vvqmyxwt00 mm[Hg]Services [facility] [employer] Work Phone: 1(173)32696 [address]09-17-2023 16:38-0400 Heart rate90 /[facility] [employer] Work Phone: 1(040)603-[address] [place], [place] [address]882309-17-2023 16:38-0400 Respiratory rate20 /[facility] [employer] Work Phone: 1(046)080-[address] [place], [place] [address]882309-17-2023 16:38-0400 SaO2% (BldA) [Mass fraction]98 %Services [facility] [employer] Work Phone: 1(124)247-[facility]09-17-2023 16:38-0400 Systolic blood qjsnibxv895 mm[Hg]Services [facility] [employer] Work Phone: [facility]09-15-2023 18:54-0400 Heart rate70 /minTim Avery [facility]09-15-2023 18:54-0400 Respiratory rate16 /minTim Avery [facility]09-15-2023 18:54-1434SvG5% (BldA) [Mass fraction]99 %Chandana Varela [facility]09-15-2023 16:49-0400Body .78 [degF]Chandana Varela [facility]09-15-2023 16:49-0400 Diastolic blood wwhguiyn80 mm[Hg]Chandana Varela [facility]09-15-2023 16:49-0400Heart rate84 /minTim Avery [facility]09-15-2023 16:49-0400 Respiratory rate18 /minTim Avery [facility]09-15-2023 16:49-5713ApU6% (BldA) [Mass fraction]98 %Chandana Varela [facility]09-15-2023 16:49-0400 Systolic blood flzxcedn980 mm[Hg]Chandana Varela [facility]09-15-2023 10:20-0400Body ncvevf777.02 cmSlincoln hospital [employer] Work Phone: 3(847)627-[facility]09-15-2023 10:20-0400 Body auxrpbntmfw35.6 [degF]Services [employer] Work Phone: 1(789)371-[facility]09-15-2023 10:20-0400 Body osprst951.1 kgSerroxbury treatment center [employer] Work Phone: [phone]-[facility]09-15-2023 10:20-0400 Diastolic blood mtfudbin49 mm[Hg]Services [employer] Work Phone: 1(657)575-[facility]09-15-2023 10:20-0400 Heart rate98 /[facility] ArizonaOceans[facility] Systems Work Phone: 0([phone]-[facility]09-15-2023 10:20-0400 Respiratory rate22 /[facility] BeachwoodCh[employer] Work Phone: [phone])602-[facility]09-15-2023 10:20-0400 SaO2% (BldA) [Mass fraction]98 %Services [employer] Work Phone: [phone]-[facility]09-15-2023 10:20-0400 Systolic blood doyhylwj929 mm[Hg]Services [facility] [employer] Work Phone: [facility]09-12-2023 20:24-0400 Body jvbtpcouzvy77.01 [degF]Allyson Griffiths DO Work Phone: 1(637)[facility] HospitalLpcxes39-98-1437 20:24-0400Diastolic blood mm[Hg]Allyson Griffiths DO Work Phone: 1(361)[facility] HospitalDxlxuo63-06-7101 20:24-0400Heart rate70 /min Allyson Griffiths DO Work Phone: 1(028)[facility] HospitalTzofls11-97-5161 20:24-0400Respiratory rate18 /minAllyson Griffiths DO Work Phone: 1(375)[facility] HospitalTphfvx84-29-7587 20:24-2874JkY4% (BldA) [Mass fraction]98 %Allyson Griffiths DO Work Phone: 1(931)[facility] HospitalYbkocp73-73-8277 20:24-0400Systolic blood jxbvriyb061 mm[Hg]Allyson Griffiths DO Work Phone: 1(595)[facility] HospitalGrwpnu97-96-0753 19:35-0400Body hhwatu766 cm Allyson Griffiths DO Work Phone: 1(699)[facility] HospitalDsodqn38-42-9039 19:35-0400Body mass index (BMI) [Ratio]42.16 kg/b9CauxplAllyson Griffiths DO Work Phone: 1(748)[facility] HospitalLigzuz26-31-1377 19:35-0400Body xxlgep871.96 kgAllyson Griffiths DO Work Phone: 1(011)[facility] HospitalJhjmhz88-11-8103 16:15-0400Body temperature 97.9 [degF]Services [facility] [employer] Work Phone: [facility]09-07-2023 16:15-0400 Diastolic blood lgdgqsau28 mm[Hg]Services [place] Work Phone: [facility]09-07-2023 16:15-0400 Heart rate86 /minServices Family [employer] Work Phone: 1([phone]-[facility]09-07-2023 16:15-0400 Respiratory rate18 /[employer] Work Phone: 1(201)141-[address] [place], [place] [address]882309-07-2023 16:15-0400 SaO2% (BldA) [Mass fraction]98 %Services [employer] Work Phone: 1(098)033-[address] [place], [place] [address]882309-07-2023 16:15-0400 Systolic blood ehlayjsn740 mm[Hg]Services [employer] Work Phone: 1(253)28296 [address]09-07-2023 15:27-0400 Body .02 [facility] HospitalSmart Platetanner [facility] [employer] Work Phone: 1(531)15396 [address]09-07-2023 15:27-0400 Body yeoqty393.9 kgSerroxbury treatment center [employer] Work Phone: 1(562)63096 [address]09-06-2023 10:51-0400 Diastolic blood lhkqzovj42 mm[Hg]Services [employer] Work Phone: 1(585)085-[address] [place], [place] [address]882309-06-2023 10:51-0400 Heart rate84 /[employer] Work Phone: 1(946)588-[address] [place], [place] [address]2309-06-2023 10:51-0400 Respiratory rate16 /[employer] Work Phone: 1(214)184-[address] [place], [place] [address]2309-06-2023 10:51-0400 SaO2% (BldA) [Mass fraction]98 %Services [employer] Work Phone: 1(527)859-[address] [place], [place] [address]2309-06-2023 10:51-0400 Systolic blood wkfrgcvo334 mm[Hg]Services [employer] Work Phone: 1(906)59696 [address]09-06-2023 10:11-0400 Inhaled oxygen flow rate3 L/[employer] Work Phone: 1(356)83896 [address]09-06-2023 08:54-0400 Body dfvuwq024.02 [facility] HospitalChameleon Collective Work Phone: 1(364)791-[address] [place], [place] [address]2309-06-2023 08:54-0400 Body aotiqzljruy32.9 [degF]Services [employer] Work Phone: [facility]09-06-2023 08:54-0400 Body ymxcop825.86 kgServices [employer] Work Phone: [facility]08-28-2023 10:30-0400 Body tfczog869.56 cmSbelle Garza Other [employer] Other 08-28-2023 10:30-0400Body mass index (BMI) [Ratio] 42.39 kg/n9MrqgceGlen Garza Other [employer] Other 08-28-2023 10:30-0400Body .04 kgShlang Garza Other noMon[employer] Other 08-28-2023 10:30-0400Diastolic blood yspstjdw23 mm[Hg] Glen Garza Other [employer] Other 08-28-2023 10:30-8462LbP4% (BldA) [Mass fraction]97 % Glen Garza Other [employer]Sequ[employer] Other 08-28-2023 10:30-0400Systolic blood sreyctnp365 mm[Hg] Glen Garza Other [employer] Other 08-27-2023 12:35-0400Body .02 cmServices [employer] Work Phone: [facility]08-27-2023 12:35-0400 Body jlunngcmdwk26.6 [degF]Services [facility] [employer] Work Phone: [facility]08-27-2023 12:35-0400 Body iscdld509.4 kgSerroxbury treatment center [employer] Work Phone: 1(030)38396 [address]08-27-2023 12:35-0400 Diastolic blood udzbinth75 mm[Hg]Services Family [employer] Work Phone: 1(710)26796 [address]08-27-2023 12:35-0400 Heart rate99 /minSChameleon Collective Work Phone: [phone])00696 [address]08-27-2023 12:35-0400 Respiratory rate20 /minSWater Innovate Health Work Phone: [phone])72296 [address]08-27-2023 12:35-0400 SaO2% (BldA) [Mass fraction]98 %Services [employer] Work Phone: 1(765)37296 [address]08-27-2023 12:35-0400 Systolic blood jlztcayv955 mm[Hg]Services [employer] Work Phone: 1(083)31896 [address]08-25-2023 23:39-0400 Body bmbayy507.02 cmServOceansblue Systems Work Phone: 1(297)72796 [address]08-25-2023 23:39-0400 Body .5 [degF]Services [employer] Work Phone: 1(063)31996 [address]08-25-2023 23:39-0400 Body drafqk577 kgSerroxbury treatment center [employer] Work Phone: 1(247)09796 [address]08-25-2023 23:39-0400 Diastolic blood dtttqsbo55 mm[Hg]Services [employer] Work Phone: 1(482)81696 [address]08-25-2023 23:39-0400 Heart rate85 /NuevoraervO[employer] Work Phone: 1(787)48196 [address]08-25-2023 23:39-0400 Respiratory rate18 /minSChameleon Collective Work Phone: 1(069)31996 [address]08-25-2023 23:39-0400 SaO2% (BldA) [Mass fraction]96 %Services [employer] Work Phone: 1(991)601-[address] [place], [place] 0882308-25-2023 23:39-0400 Systolic blood usyjlzqh960 mm[Hg]Services [employer] Work Phone: 1(305)83296 [address]08-24-2023 18:19-0400 Body .02 [facility] HospitalCh[facility] Collect[facility] Work Phone: 1(435)23796 [address]08-24-2023 18:19-0400 Body dspzfupapiz83.8 [degF]Services [employer] Work Phone: [phone])25796 [address]08-24-2023 18:19-0400 Body kgSerroxbury treatment center [employer] Work Phone: 1(642)[address] [place], [place] [address]0108-24-2023 18:19-0400 Diastolic blood rtuobbvr68 mm[Hg]Services [employer] Work Phone: 1(501)81096 [address]08-24-2023 18:19-0400 Heart rate96 /[employer] Work Phone: 1(697)35896 [address]08-24-2023 18:19-0400 Respiratory rate22 /[employer] Work Phone: 1(159)13096 [address]08-24-2023 18:19-0400 SaO2% (BldA) [Mass fraction]97 %Services [employer] Work Phone: 1(980)93496 [address]08-24-2023 18:19-0400 Systolic blood segiwxni400 mm[Hg]Services [employer] Work Phone: 1(067)24896 [address]08-21-2023 21:47-0400 Body wbbnzy613.02 [facility] HospitalCh[facility] Collect[facility] Work Phone: 1(842)10996 [address]08-21-2023 21:47-0400 Body zrzcsaejqlt21 [degF]Services [employer] Work Phone: 1(433)58296 [address]08-21-2023 21:47-0400 Body alclqu828.86 kgSerdaniel freeman memorial hospitalSpecialized Vascular Technologies Work Phone: 1(154)73296 [address]08-21-2023 21:47-0400 Diastolic blood meitglbh66 mm[Hg]Services [employer] Work Phone: 1(216)990-[address] [place], [place] [address]882308-21-2023 21:47-0400 Heart rate81 /minSChameleon Collective Work Phone: 1(483)02396 [address]08-21-2023 21:47-0400 Respiratory rate20 /minSChameleon Collective Work Phone: 1(631)729-[address] [place], [place] [address]882308-21-2023 21:47-0400 SaO2% (BldA) [Mass fraction]96 %Services [employer] Work Phone: 1(733)34996 [address]08-21-2023 21:47-0400 Systolic blood iiftbtih788 mm[Hg]Services [employer] Work Phone: 1(352)53196 [address]08-20-2023 15:39-0400 Body urtzvd873.02 cmServOceansblue Systems Work Phone: 1(023)56696 [address]08-20-2023 15:39-0400 Body kzovobasjzy27.6 [degF]Services [employer] Work Phone: 1(139)44296 [address]08-20-2023 15:39-0400 Body emvvax573.45 kgSerdaniel freeman memorial hospitales [employer] Work Phone: 1(326)62096 [address]08-20-2023 15:39-0400 Diastolic blood sltzdaym730 mm[Hg]Services [employer] Work Phone: 1(012)58696 [address]08-20-2023 15:39-0400 Heart fsfd559 /[employer] Work Phone: 1(182)906-[address] [place], [place] [address]882308-20-2023 15:39-0400 Respiratory rate20 /[employer] Work Phone: 1(767)48396 [address]08-20-2023 15:39-0400 SaO2% (BldA) [Mass fraction]96 %Services [employer] Work Phone: 1(763)069-[address] [place], [place] 0882308-20-2023 15:39-0400 Systolic blood dnstdemm837 mm[Hg]Services [employer] Work Phone: 1(419)[address] [place], [place] 8930108-17-2023 09:05-0400 Body cyimya703.02 cmSpromedica bay park hospitalOceansblue Systems Work Phone: 1(599)[address] [place], [place] 8930108-17-2023 09:05-0400 Body eectlogbuas23.7 [degF]Services [employer] Work Phone: 1(402)[address] [place], [place] 8930108-17-2023 09:05-0400 Body fbebaz027.86 kgSerroxbury treatment center [employer] Work Phone: 1(258)[address] [place], [place] 8930108-17-2023 09:05-0400 Diastolic blood hdqkcsez72 mm[Hg]Services [employer] Work Phone: 1(885)[address] [place], [place] 8930108-17-2023 09:05-0400 Heart rate95 /[employer] Work Phone: 1(417)[address] [place], [place] 8930108-17-2023 09:05-0400 Respiratory rate18 /[employer] Work Phone: 1(967)[address] [place], [place] 8930108-17-2023 09:05-0400 SaO2% (BldA) [Mass fraction]96 %Services [employer] Phone: 1(258)[address] [place], [place] 8930108-17-2023 09:05-0400 Systolic blood idfiqgnf220 mm[Hg]Services [employer] Phone: 1(728)[address] [place], [place] 8930108-15-2023 09:00-0400 Body rttyza095.56 cmRose Marie Delpor Other [employer] Other Phone: [phone] 09:00-0400Body mass index (BMI) [Ratio] 41.36 kg/r7Syqrkuy Delpor Other [employer] Other Phone: [phone] 09:00-0400Body lakkfd220.32 kgJebailey Shepherd Other [employer] Other Phone: [phone] 09:00-0400Diastolic blood oksghakl10 mm[Hg] Rose Marie Shepherd Other noMon[employer] Other 08-15-2023 09:00-0400Systolic blood xdawovoi537 mm[Hg] Rose Marie Shepherd Other [employer] Other 08-10-2023 20:46-0400Body jvenpc769.02 [employer] Work Phone: 1(509)966-[address] [place], [place] [address]882308-10-2023 20:46-0400 Body ptnzgasrpol62.8 [degF]Services [employer] Phone: 1(276)06696 [address]08-10-2023 20:46-0400 Body ufbikx174.76 kgSerFMS [place] Phone: 1(685)218-[address] [place], [place] 0882308-10-2023 20:46-0400 Diastolic blood rbjpojpu40 mm[Hg]Services [employer] Work Phone: 1(953)940-[address] [place], [place] [address]882308-10-2023 20:46-0400 Heart rate90 /[employer] Phone: 1(956)788-[address] [place], [place] [address]882308-10-2023 20:46-0400 Respiratory rate12 /[employer] Phone: 1(615)217-[address] [place], [place] 0882308-10-2023 20:46-0400 SaO2% (BldA) [Mass fraction]97 %Services [employer] Phone: 1(970)441-[address] [place], [place] 0882308-10-2023 20:46-0400 Systolic blood lyyxtbld613 mm[Hg]Services [employer] Phone: 1(374)151-[address] [place], [place] [address]882308-09-2023 09:05-0400 Body paptnx687.02 [facility] HospitalRemedify Phone: 1(197)093-[address] [place], [place] [address]882308-09-2023 09:05-0400 Body djmadc233.86 kgSerFMS [place] Phone: 1(071)003-[address] [place], [place] [address]882308-03-2023 21:56-0400 Body bslhxa533.02 [employer] Phone: 1(391)892-[address] [place], [place] [address]882308-03-2023 21:56-0400 Body zxkhqfgvorz68.1 [degF]Services [employer] Work Phone: 1(157)17896 [address]08-03-2023 21:56-0400 Body gtcqci895.32 kgSerroxbury treatment center [employer] Work Phone: 1(565)183-[address] [place], [place] 0882308-03-2023 21:56-0400 Diastolic blood ebebpdab46 mm[Hg]Services [employer] Work Phone: 1(434)05996 [address]08-03-2023 21:56-0400 Heart rate90 /[employer] Work Phone: 1(582)21796 [address]08-03-2023 21:56-0400 Respiratory rate18 /[facility] Work Phone: 1(969)25696 [address]08-03-2023 21:56-0400 SaO2% (BldA) [Mass fraction]96 %Services [facility] Work Phone: 1(029)05996 [address]08-03-2023 21:56-0400 Systolic blood ojnnorva133 mm[Hg]Services [facility] Work Phone: 1([phone] [address]08-01-2023 12:21-0400 Body eqxpewbqjpu34.6 [degF]Services [facility] Work Phone: [phone])80996 [address]08-01-2023 12:20-0400 Body .02 [facility] Work Phone: 1([phone] [address]08-01-2023 12:20-0400 Body nghfgo709.86 [facility] Work Phone: 1([phone] [address]08-01-2023 12:20-0400 Diastolic blood lkqtlpui75 mm[Hg]Services [facility] Work Phone: [phone])30696 [address]08-01-2023 12:20-0400 Heart rate87 /[facility] Work Phone: 1([phone])[phone] [place], [place] 0882308-01-2023 12:20-0400 Respiratory rate20 /minServices [facility] Work Phone: [phone] [place] 0882308-01-2023 12:20-0400 SaO2% (BldA) [Mass fraction]97 %Services [employer] Work Phone: [phone])221-[address] [place], [place] 0882308-01-2023 12:20-0400 Systolic blood bguyvmlu322 mm[Hg]Services [employer] Work Phone: [phone])52396 [address]07-25-2023 16:24-0400 Body akyjkz735.02 cmSChameleon Collective Work Phone: [phone])61296 [address]07-25-2023 16:24-0400 Body bmffpeeweil12.7 [degF]Services [employer] Work Phone: [phone])18396 [address]07-25-2023 16:24-0400 Body .7 kgServices [facility] Work Phone: [phone])12196 [address]07-25-2023 16:24-0400 Diastolic blood gerrxyei35 mm[Hg]Services [facility] Work Phone: [phone])98596 [address]07-25-2023 16:24-0400 Heart rate82 /[employer] Work Phone: [phone])651-[address] [place], [place] 0882307-25-2023 16:24-0400 Respiratory rate16 /[employer] Work Phone: 1(169)020-[address] [place], [place] 0882307-25-2023 16:24-0400 SaO2% (BldA) [Mass fraction]96 %Services [employer] Work Phone: [phone])578-[address] [place], [place] 0882307-25-2023 16:24-0400 Systolic blood ogrzajns948 mm[Hg]Services [employer] Work Phone: [phone])91796 [address]07-20-2023 17:34-0400 Body lciflm663.02 [facility] Work Phone: 1(161)813-[address] [place], [place] 0882307-20-2023 17:34-0400 Body neqwlxtwzrd86.7 [degF]Services [employer] Work Phone: 1(976)181-[address] [place], [place] 0882307-20-2023 17:34-0400 Body zvnbeq289.95 [facility] Work Phone: 1(394)00196 [address]07-20-2023 17:34-0400 Diastolic blood btvxddzi71 mm[Hg]Services [employer] Work Phone: [phone])366-[address] [place], [place] 0882307-20-2023 17:34-0400 Heart rate90 /[employer] Work Phone: 1419)02496 [address]07-20-2023 17:34-0400 Respiratory rate18 /[employer] Work Phone: 1(084)85296 [address]07-20-2023 17:34-0400 SaO2% (BldA) [Mass fraction]97 %Services [facility] Work Phone: 1(328)94296 [address]07-20-2023 17:34-0400 Systolic blood pfheccuo026 mm[Hg]Services [employer] Work Phone: 1(757)08196 [address]07-16-2023 12:25-0400 Body covlsz407.56 cmServOceansblue Systems Work Phone: 1(704)19696 [address]07-16-2023 12:25-0400 Body ltvbfebciyo83.7 [degF]Services [facility] Work Phone: 1(263)59196 [address]07-16-2023 12:25-0400 Body [facility] Work Phone: 1(543)97196 [address]07-16-2023 12:25-0400 Diastolic blood hdsyrise17 mm[Hg]Services [employer] Work Phone: 1(338)92696 [address]07-16-2023 12:25-0400 Heart rate85 /[employer] Work Phone: 1(986)49596 [address]07-16-2023 12:25-0400 Respiratory rate20 /[employer] Work Phone: 1(580)709-[address] [place], [place] 0882307-16-2023 12:25-0400 SaO2% (BldA) [Mass fraction]97 %Services [employer] Work Phone: 1(001)316-[address] [place], [place] 0882307-16-2023 12:25-0400 Systolic blood vsxgcgce625 mm[Hg]Services [employer] Work Phone: [phone])51696 [address]07-13-2023 18:16-0400 Body hkfyce666.56 cmServices [employer] Work Phone: 1419)08196 [address]07-13-2023 18:16-0400 Body vdqessdnucg07.1 [degF]Services [employer] Work Phone: 1419)76796 [address]07-13-2023 18:16-0400 Body hhpazs947.2 kgSerdaniel freeman memorial hospitales [facility] Work Phone: 1(714)17096 [address]07-13-2023 18:16-0400 Diastolic blood ejewsrco01 mm[Hg]Services [employer] Work Phone: 1(914)039-[address] [place], [place] 0882307-13-2023 18:16-0400 Heart rate89 /[employer] Work Phone: 1(238)119-[address] [place], [place] 0882307-13-2023 18:16-0400 Respiratory rate18 /[employer] Work Phone: 1(245)578-[address] [place], [place] 0882307-13-2023 18:16-0400 SaO2% (BldA) [Mass fraction]96 %Services [employer] Work Phone: 1(192)636-[address] [place], [place] 0882307-13-2023 18:16-0400 Systolic blood mm[Hg]Services [employer] Work Phone: 1(621)088-[address] [place], [place] 0882307-11-2023 19:44-0400 Diastolic blood peoeubjy60 mm[Hg]Services [employer] Work Phone: 1(383)59396 [address]07-11-2023 19:44-0400 Heart rate77 /[employer] Work Phone: 1(160)231-[address] [place], [place] 0882307-11-2023 19:44-0400 Respiratory rate20 /[employer] Work Phone: 1(763)973-[address] [place], [place] 0882307-11-2023 19:44-0400 Systolic blood kejwkjjc862 mm[Hg]Services [facility] Work Phone: 1(216)37896 [address]07-11-2023 18:59-0400 Body .56 cmSChameleon Collective Work Phone: 1(754)37896 [address]07-11-2023 18:59-0400 Body nybxdyzgbwj01 [degF]Services [facility] Work Phone: 1(019)73396 [address]07-11-2023 18:59-0400 Body ehlghq291.8 kgSerWilmington Pharmaceuticals [facility] Work Phone: 1(633)60096 [address]07-11-2023 18:59-0400 SaO2% (BldA) [Mass fraction]96 %Services [facility] Work Phone: 1(532)60296 [address]07-07-2023 18:45-0400 Diastolic blood mm[Hg]Services [employer] Work Phone: 1(016)757-[address] [place], [place] 0882307-07-2023 18:45-0400 Heart rate81 /[employer] Work Phone: 1(127)84196 [address]07-07-2023 18:45-0400 Respiratory rate20 /[employer] Work Phone: 1(431)154-[address] [place], [place] 0882307-07-2023 18:45-0400 SaO2% (BldA) [Mass fraction]97 %Services [employer] Work Phone: 1(238)883-[address] [place], [place] 0882307-07-2023 18:45-0400 Systolic blood wcufetfq418 mm[Hg]Services [employer] Work Phone: 1(736)63296 [address]07-07-2023 17:30-0400 Body aetwvw853.02 cmSChameleon Collective Work Phone: 1(577)450-[address] [place], [place] 0882307-07-2023 17:30-0400 Body zqwyev334.86 kgSerCovelus Work Phone: 1(652)941-[address] [place], [place] 0882307-07-2023 17:28-0400 Body aqcrwtkokir37.1 [degF]Services [facility] Work Phone: 1(480)791-[address] [place], [place] 0882307-05-2023 14:00-0400 Body ylagmv110.56 cmSbelle Garza Other [employer] Other 07-05-2023 14:00-0400Diastolic blood mm[Hg] Glen Davidky Other [facility] [employer] Other 07-05-2023 14:00-1591ScJ5% (BldA) [Mass fraction]97 % Glen Davidky Other [facility] [employer] Other 07-05-2023 14:00-0400Systolic blood zqbjbixb277 mm[Hg] Glen Kayla Other [facility] [employer] Other 07-03-2023 17:58-0400Body jpiuraxnghl00.8 [degF] Services [facility] Work Phone: 1(847)675-[facility]07-03-2023 17:58-0400 Diastolic blood vitqdqqg38 mm[Hg]Services [facility] Work Phone: 1(365)221-[facility]07-03-2023 17:58-0400 Heart rate84 /minServNukotoys Health Work Phone: 1(431)052-[address] [place], [place] 0882307-03-2023 17:58-0400 Respiratory rate20 /minServices [facility] Work Phone: 1(638)660-[facility]07-03-2023 17:58-0400 SaO2% (BldA) [Mass fraction]97 %Services [facility] Work Phone: 1(923)911-[facility]07-03-2023 17:58-0400 Systolic blood muogtpqf175 mm[Hg]Services [facility] Work Phone: 1(596)615-[address] [place], [place] 0882307-03-2023 17:56-0400 Body .02 [employer] Work Phone: 1(881)791-[address] [place], [place] 0882307-03-2023 17:56-0400 Body iqhjpq974 kgSerrox[facility] Work Phone: 1(121)24396 [address]07-01-2023 22:23-0400 Body uprsddyirls57.1 [degF]Services [facility] Work Phone: 1419)72096 [address]07-01-2023 22:23-0400 Diastolic blood mm[Hg]Services [facility] Work Phone: 1419)79696 [address]07-01-2023 22:23-0400 Heart rate87 /[employer] Work Phone: 1419)77396 [address]07-01-2023 22:23-0400 Respiratory rate24 /[employer] Work Phone: 1(134)18696 [address]07-01-2023 22:23-0400 SaO2% (BldA) [Mass fraction]96 %Services [employer] Work Phone: 1(498)74196 [address]07-01-2023 22:23-0400 Systolic blood mm[Hg]Services [employer] Work Phone: 1(982)04296 [address]07-01-2023 22:17-0400 Body ehiizf737.02 [employer] Work Phone: 1(685)342-[address] [place], [place] 0882307-01-2023 22:17-0400 Body ezuxkr150.32 kgSerdaniel freeman memorial hospitalSpecialized Vascular Technologies Work Phone: 1(141)37496 [address]06-28-2023 12:24-0400 Diastolic blood nuwununv86 mm[Hg]Services [employer] Work Phone: 1(928)50296 [address]06-28-2023 12:24-0400 Heart rate63 /[employer] Work Phone: 1(587)914-[address] [place], [place] 0882306-28-2023 12:24-0400 Respiratory rate16 /[employer] Phone: 1(801)189-[facility]06-28-2023 12:24-0400 SaO2% (BldA) [Mass fraction]96 %Services [employer] Work Phone: 1(432)938-[address] [place], [place] 0882306-28-2023 12:24-0400 Systolic blood ngixxpch546 mm[Hg]Services [employer] Work Phone: 1(387)80996 [address]06-28-2023 11:49-0400 Inhaled oxygen flow rate3 L/[employer] Work Phone: 1(338)33196 [address]06-28-2023 10:59-0400 Body ffuhcm413.02 [facility] Phone: 1(009)58696 [address]06-28-2023 10:59-0400 Body nazhzr724.32 kgSerFMS [place] Phone: 1(915)31796 [address]06-27-2023 15:42-0400 Body .02 [facility] HospitalCh[facility] Collect[facility] Work Phone: 1(163)38796 [address]06-27-2023 15:42-0400 Body oxfglohngan00.7 [degF]Services [employer] Phone: 1(700)44596 [address]06-27-2023 15:42-0400 Body rojdmy846.32 kgSerFMS [place] Phone: 1(688)16296 [address]06-27-2023 15:42-0400 Diastolic blood cydjzmjg47 mm[Hg]Services [employer] Phone: 1(533)255-[address] [place], [place] 0882306-27-2023 15:42-0400 Heart rate82 /[employer] Phone: 1(933)97496 [address]06-27-2023 15:42-0400 Respiratory rate18 /[employer] Phone: 1(632)979-[address] [place], [place] 0882306-27-2023 15:42-0400 SaO2% (BldA) [Mass fraction]97 %Services [employer] Phone: 1(720)001-[address] [place], [place] 0882306-27-2023 15:42-0400 Systolic blood pwbuycht496 mm[Hg]Services [employer] Work Phone: 1(887)913-[address] [place], [place] 0882306-20-2023 14:00-0400 Diastolic blood cslfexje47 mm[Hg]Services [employer] Work Phone: 1(776)65996 [address]06-20-2023 14:00-0400 Heart rate86 /[employer] Work Phone: 1(519)47196 [address]06-20-2023 14:00-0400 Respiratory rate20 /[facility] Work Phone: 1(592)101[address]06-20-2023 14:00-0400 Systolic blood mm[Hg]Services [employer] Work Phone: 1(600)62996 [address]06-20-2023 12:59-0400 Body esmckl584.02 [employer] Work Phone: 1(500)55696 [address]06-20-2023 12:59-0400 Body vqzkqdxovph18 [degF]Services [employer] Work Phone: 1(828)60696 [address]06-20-2023 12:59-0400 Body kzconr587.32 kgSerCovelus Work Phone: 1(462)25396 [address]06-20-2023 12:59-0400 SaO2% (BldA) [Mass fraction]98 %Services [employer] Work Phone: 1(852)667-[address] [place], [place] 0882306-14-2023 15:23-0400 Body palpwj185.02 [employer] Work Phone: 1(898)34496 [address]06-14-2023 15:23-0400 Body mynrquswyhv15.9 [degF]Services [employer] Work Phone: 1(894)28396 [address]06-14-2023 15:23-0400 Body frqyis693.25 kgSerCovelus Work Phone: 1(576)38096 [address]06-14-2023 15:23-0400 Diastolic blood mm[Hg]Services [employer] Work Phone: [facility]06-14-2023 15:23-0400 Heart rate90 /minServOceansblue Systems Work Phone: [facility]06-14-2023 15:23-0400 Respiratory rate20 /[facility]Slincoln hospital [facility] Work Phone: [facility]06-14-2023 15:23-0400 SaO2% (BldA) [Mass fraction]98 %Services [employer] Work Phone: [facility]06-14-2023 15:23-0400 Systolic blood pddksodb419 mm[Hg]Services [place] Work Phone: [facility]06-13-2023 19:11-0400 Body qihtbgvxgfk76.42 [degF]Pedro PabloRock'n [facility]over [facility]06-13-2023 19:11-0400 Diastolic blood ifxfgpwa509 mm[Hg]Pedro PabloRock'[facility] R[facility]06-13-2023 19:11-0400Heart jyhc016 /minBlue Marble Materials [facility]06-13-2023 19:11-0400 Respiratory rate18 /minNoRock'n Rover [facility]06-13-2023 19:11-6569TqI2% (BldA) [Mass fraction]100 %Pedro PabloRock'n Rover [facility]06-13-2023 19:11-0400 Systolic blood xxlxniqb006 mm[Hg]Pedro Pablo Chance [facility]06-13-2023 10:00-0400Body rrrzoq490.56 cmShertito Garza Other [place] [employer] Other [id number] 10:00-0400Body mass index (BMI) [Ratio] 40.16 kg/f4AjrrddGlen Garza Other [facility] [employer] Other 06-13-2023 10:00-0400Body celymt513.14 kgShlang Garza Other [place] [employer] Other 06-13-2023 10:00-0400Diastolic blood vulahitv93 mm[Hg] Glen Garza Other [facility] [employer] Other 06-13-2023 10:00-1208NfL5% (BldA) [Mass fraction]99 % Glen Garza Other [facility] [employer] Other 06-13-2023 10:00-0400Systolic blood ofytinoy383 mm[Hg] Glen Garza Other [facility] [employer] Other 06-10-2023 15:00-0400Body kiraum909.56 cmSChameleon Collective Work Phone: [facility]06-10-2023 15:00-0400 Body wombjnzbwgj25.7 [degF]Services [employer] Work Phone: [facility]06-10-2023 15:00-0400 Body jturtv115 kgServices [employer] Work Phone: [facility]06-10-2023 15:00-0400 Diastolic blood segrqhqb81 mm[Hg]Services [employer] Work Phone: [facility]06-10-2023 15:00-0400 Heart rate96 /[employer] Work Phone: [facility]06-10-2023 15:00-0400 Respiratory rate20 /[employer] Work Phone: [facility]06-10-2023 15:00-0400 SaO2% (BldA) [Mass fraction]100 %Services [employer] Work Phone: 1(572)162-[address] [place], [place] 0882306-10-2023 15:00-0400 Systolic blood mm[Hg]Services [employer] Work Phone: [phone])21196 [address]06-09-2023 20:05-0400 Body ivrcat735.02 [facility] HospitalCh[facility] Work Phone: [phone])38596 [address]06-09-2023 20:05-0400 Body rgnirylfhdv66.8 [degF]Services [employer] Work Phone: 1419)19096 [address]06-09-2023 20:05-0400 Body chkgae653.7 kgSerroxbury treatment center [employer] Phone: 1419)10696 [address]06-09-2023 20:05-0400 Diastolic blood mm[Hg]Services [employer] Work Phone: 1419)82596 [address]06-09-2023 20:05-0400 Heart rate94 /[employer] Work Phone: 1419)30996 [address]06-09-2023 20:05-0400 Respiratory rate18 /[employer] Work Phone: 1(086)55896 [address]06-09-2023 20:05-0400 SaO2% (BldA) [Mass fraction]98 %Services [employer] Work Phone: 1(478)010-[address] [place], [place] 0882306-09-2023 20:05-0400 Systolic blood yxbsxwzx945 mm[Hg]Services [employer] Work Phone: 1(845)64196 [address]06-04-2023 15:35-0400 Body zwusqj712.02 [facility] Work Phone: [phone])161-[address] [place], [place] 0882306-04-2023 15:35-0400 Body vbxyabnioln09.1 [degF]Services [employer] Work Phone: 1(203)116-[address] [place], [place] 0882306-04-2023 15:35-0400 Body .6 kgSerdaniel freeman memorial hospitalSpecialized Vascular Technologies Work Phone: [facility]06-04-2023 15:35-0400 Diastolic blood mm[Hg]Services [employer] Work Phone: 1(681)426-[facility]06-04-2023 15:35-0400 Heart rate94 /[employer] Work Phone: 1(739)003-[facility]06-04-2023 15:35-0400 Respiratory rate18 /minServOceansblue Systems Work Phone: 1(376)380-[address] [place], [place] 0882306-04-2023 15:35-0400 SaO2% (BldA) [Mass fraction]99 %Services [employer] Work Phone: 1(315)238-[address] [place], [place] 0882306-04-2023 15:35-0400 Systolic blood yufazulq358 mm[Hg]Services [employer] Phone: 1(469)76896 [address]05-30-2023 08:40-0400 Body ucondp959.56 cmJebailey Delpor Other [employer] Other Phone: [phone] 08:40-0400Body mass index (BMI) [Ratio] 40.16 kg/d8Wzadoha Delpor Other [employer] Other Phone: [phone] 08:40-0400Body wuymck303.14 kgRose Marie Delpor Other [employer] Other [id number] 08:40-0400Diastolic blood zploruyn45 mm[Hg] Rose Marie Delpor Other [employer] Other 05-30-2023 08:40-0400Systolic blood kizyeduf297 mm[Hg] Rose Marie Delpor Other [employer] Other 05-26-2023 00:19-0400Diastolic blood qprbwlav40 mm[Hg] Services [facility] Work Phone: 1(489)22396 [address]05-26-2023 00:19-0400 Heart rate75 /[employer] Work Phone: 1(490)[address] [place], [place] 8930105-26-2023 00:19-0400 Respiratory rate20 /minSChameleon Collective Work Phone: 1(850)[address] [place], [place] 8930105-26-2023 00:19-0400 SaO2% (BldA) [Mass fraction]97 %Services [employer] Work Phone: [phone])04596 [address]05-26-2023 00:19-0400 Systolic blood wniszztk464 mm[Hg]Services [employer] Work Phone: 1(256)16196 [address]05-25-2023 21:20-0400 Body zeyxtx836.02 cmSChameleon Collective Work Phone: 1(472)[address] [place], [place] 8930105-25-2023 21:20-0400 Body mkfmhzzuzpt71.9 [degF]Services [employer] Work Phone: 1(604)20296 [address]05-25-2023 21:20-0400 Body gnpmho826.32 [facility]Serrox[facility] Work Phone: 1(681)02896 [address]05-22-2023 17:20-0400 Body bfejpo217.02 cmSpromedica bay park hospitalOceansblue Systems Work Phone: 1(834)[address] [place], [place] 8930105-22-2023 17:20-0400 Body usedvbrxwda95.8 [degF]Services [employer] Work Phone: 1(255)77296 [address]05-22-2023 17:20-0400 Body lrkphi423.85 kgSerroxbury treatment center [employer] Work Phone: 1(565)89696 [address]05-22-2023 17:20-0400 Diastolic blood xvkyaljh81 mm[Hg]Services [employer] Work Phone: 1(076)34096 [address]05-22-2023 17:20-0400 Heart rate92 /[facility]Wh[facility] Work Phone: 1(873)90196 [address]05-22-2023 17:20-0400 Respiratory rate20 /minServices [facility] Work Phone: 1419)418-[address] [place], [place] 0882305-22-2023 17:20-0400 SaO2% (BldA) [Mass fraction]96 %Services [facility] Work Phone: 1419)61296 [address]05-22-2023 17:20-0400 Systolic blood byrhzlvy981 mm[Hg]Services [facility] Work Phone: 1419)42096 [address]05-15-2023 17:12-0400 Body bmmida996.02 cmServNukotoys Health Work Phone: 1419)55596 [address]05-15-2023 17:12-0400 Body ofqjrpbtxbx32.7 [degF]Services [facility] Work Phone: 1419)46596 [address]05-15-2023 17:12-0400 Body zeayqm145.3 kgServices [employer] [facility] Work Phone: 1419)98896 [address]05-15-2023 17:12-0400 Diastolic blood kuwdtykh52 mm[Hg]Services [facility] Work Phone: 1419)28296 [address]05-15-2023 17:12-0400 Heart rate78 /minServices [facility] Work Phone: 1419)62696 [address]05-15-2023 17:12-0400 Respiratory rate20 /minServNukotoys Health Work Phone: 1(419)29696 [address]05-15-2023 17:12-0400 SaO2% (BldA) [Mass fraction]98 %Services [facility] Work Phone: 1(419)45696 [address]05-15-2023 17:12-0400 Systolic blood kjypnfgp176 mm[Hg]Services [facility] Work Phone: 1419)80696 [address]05-11-2023 21:20-0400 Body urmwdd634.02 cmServOceansblue Systems Work Phone: 1419)09396 [address]05-11-2023 21:20-0400 Body zohizlxudio59.6 [degF]Services [facility] Work Phone: 1419)64896 [address]05-11-2023 21:20-0400 Body fvrezq022.55 kgServic [facility] Work Phone: 1419)73096 [address]05-11-2023 21:20-0400 Diastolic blood qxsxysds30 mm[Hg]Services [employer] Work Phone: 1419)02696 [address]05-11-2023 21:20-0400 Heart rate74 /[employer] Work Phone: 1419)33196 [address]05-11-2023 21:20-0400 Respiratory rate22 /minSChameleon Collective Work Phone: 1419)[address] [place], [place] 8930105-11-2023 21:20-0400 SaO2% (BldA) [Mass fraction]97 %Services [employer] Work Phone: 1419)13996 [address]05-11-2023 21:20-0400 Systolic blood ooweirqn765 mm[Hg]Services [employer] Work Phone: 1419)83696 [address]03-25-2023 12:24-0400 Body vkaklk103.02 cmServOceansblue Systems Work Phone: [address] [place], [place] 8930103-25-2023 12:24-0400 Body lkhgotrmgct20.5 [degF]Services [employer] Work Phone: 1419)[address] [place], [place] 8930103-25-2023 12:24-0400 Body ehkegr299 kgSerrox[facility] treatment center [facility] Work Phone: 1419)[address] [place], [place] 8930103-25-2023 12:24-0400 Diastolic blood zuqqdhjc24 mm[Hg]Services [facility] Work Phone: [address] [place], [place] 8930103-25-2023 12:24-0400 Heart rate69 /[employer] Work Phone: [address] [place], [place] 8930103-25-2023 12:24-0400 Respiratory rate20 /minSChameleon Collective Work Phone: 1(522)51696 [address]03-25-2023 12:24-0400 SaO2% (BldA) [Mass fraction]97 %Services [facility] Work Phone: 1(733)722-[address] [place], [place] 0882303-25-2023 12:24-0400 Systolic blood plfkughq059 mm[Hg]Services [facility] Work Phone: 1419)88796 [address]01-06-2023 13:10-0500 Diastolic blood ohmeioig84 mm[Hg]Services [facility] Work Phone: 1419)35496 [address]01-06-2023 13:10-0500 Heart rate79 /minServices [employer] Work Phone: [address] [place], [place] 8930101-06-2023 13:10-0500 Respiratory rate18 /minServices [employer] Work Phone: 1419)83696 [address]01-06-2023 13:10-0500 SaO2% (BldA) [Mass fraction]98 %Services [facility] Work Phone: 1419)41496 [address]01-06-2023 13:10-0500 Systolic blood oflkajer527 mm[Hg]Services [facility] Work Phone: [address] [place], [place] 8930101-06-2023 10:09-0500 Body aystvp256.02 cmServices [employer] Work Phone: 1(427)[address] [place], [place] 8930101-06-2023 10:09-0500 Body yjgdjmzbffq15.3 [degF]Services [facility] Work Phone: 1(650)01796 [address]01-06-2023 10:09-0500 Body ddzjac270.95 kgServices [facility] Work Phone: 1419)10596 [address]12-26-2022 18:13-0500 Diastolic blood gyxdcqgz04 mm[Hg]Services [facility] Work Phone: 1419)00896 [address]12-26-2022 18:13-0500 Heart rate51 /minServices [employer] Work Phone: 1(194)12096 [address]12-26-2022 18:13-0500 Respiratory rate20 /minServices [facility] Work Phone: 1(856)491-[facility]12-26-2022 18:13-0500 SaO2% (BldA) [Mass fraction]97 %Services [employer] Work Phone: 1(875)873-[address] [place], [place] 0882312-26-2022 18:13-0500 Systolic blood hvszzmdu007 mm[Hg]Services [employer] Work Phone: 1(315)783-[address] [place], [place] 0882312-26-2022 14:37-0500 Body aclpcc690.02 [facility] Work Phone: 1(958)05096 [address]12-26-2022 14:37-0500 Body tpguntyiala59.5 [degF]Services [employer] Work Phone: 1(783)52996 [address]12-26-2022 14:37-0500 Body jvzajh111.25 kgSerroxbury treatment center [employer] Work Phone: 1(669)238-[address] [place], [place] 0882312-24-2022 18:14-0500 Diastolic blood dnhbkngo17 mm[Hg]Services [employer] Work Phone: 1(191)01096 [address]12-24-2022 18:14-0500 Heart rate79 /[facility] [place] [facility] Work Phone: 1(823)33496 [address]12-24-2022 18:14-0500 Respiratory rate19 /[facility] [place] [employer] Work Phone: [phone] [place], [place] 0882312-24-2022 18:14-0500 SaO2% (BldA) [Mass fraction]98 %[facility] [employer] Work Phone: [phone] [place], [place] 0882312-24-2022 18:14-0500 Systolic blood acsqwpor555 mm[Hg][facility] [employer] Work Phone: [phone]12-24-2022 14:45-0500 Body voyzqq170.02 [facility] Work Phone: [phone]12-24-2022 14:45-0500 Body daqtoeggofi71.9 [degF][facility] Work Phone: [phone]12-24-2022 14:45-0500 [facility] .[facility] Work Phone: [phone] [place], [place] 0882312-21-2022 19:09-0500 Diastolic blood tklotvrd12 mm[Hg][facility] Work Phone: [phone]12-21-2022 19:09-0500 Heart rate61 /[employer] Work Phone: [phone] [place], [place] 0882312-21-2022 19:09-0500 Respiratory rate16 /[facility] Collect[employer] Work Phone: [phone])82696 [address]12-21-2022 19:09-0500 SaO2% (BldA) [Mass fraction]96 %Services [employer] Work Phone: [phone])90296 [address]12-21-2022 19:09-0500 Systolic blood itumacib936 mm[Hg]Services [employer] Work Phone: [phone])21296 [address]12-21-2022 15:23-0500 Body fzmdqi150.02 cmServOceansblue Systems Work Phone: [phone])64396 [address]12-21-2022 15:23-0500 Body pdxwcnpxozj34.4 [degF]Services [employer] Work Phone: [phone])86796 [address]12-21-2022 15:23-0500 Body .3 kgSerdaniel freeman memorial hospitales [employer] Work Phone: 1(678)915-[address] [place], [place] 0882311-12-2022 21:30-0500 Body htuqjeioqqu52.9 [degF]Services [employer] Work Phone: 1([phone])44796 [address]11-12-2022 21:30-0500 Diastolic blood zaenlxaa34 mm[Hg]Services [employer] Work Phone: [phone])05596 [address]11-12-2022 21:30-0500 Heart rate70 /[employer] Work Phone: 1(454)541-[address] [place], [place] 0882311-12-2022 21:30-0500 Respiratory rate16 /[employer] Work Phone: 1([phone])47396 [address]11-12-2022 21:30-0500 SaO2% (BldA) [Mass fraction]99 %Services [employer] Work Phone: [phone])[address] [place], [place] 8930111-12-2022 21:30-0500 Systolic blood mm[Hg]Services [employer] Work Phone: [phone])[address] [place], [place] 8930111-12-2022 17:12-0500 Body jfonls418.83 [facility] System[facility] Work Phone: [phone])[address] [place], [place] 8930111-12-2022 17:12-0500 Body grlqju047 kgSerrox[facility] treatment [facility] [employer] Work Phone: [phone])[address] [place], [place] 8930110-30-2022 20:16-0400 Body ofbnev063.02 [facility] [employer] Work Phone: [phone])[address] [place], [place] 8930110-30-2022 20:16-0400 Body ftdtiwsplvy77.2 [degF]Services [employer] Work Phone: [phone])[address] [place], [place] 8930110-30-2022 20:16-0400 Body aqohrg774.25 kgSerroxbury treatment [facility] [employer] Work Phone: 1(205)[address] [place], [place] 8930110-30-2022 20:16-0400 Diastolic blood wbvdekye34 mm[Hg]Services [employer] Work Phone: [phone])[address] [place], [place] 8930110-30-2022 20:16-0400 Heart kapw972 /[employer] Work Phone: [phone])[address] [place], [place] 8930110-30-2022 20:16-0400 Respiratory rate22 /[employer] Work Phone: [phone])[address] [place], [place] 8930110-30-2022 20:16-0400 SaO2% (BldA) [Mass fraction]98 %Services [employer] Work Phone: 1(498)[address] [place], [place] 8930110-30-2022 20:16-0400 Systolic blood ksavptyk255 mm[Hg]Services [employer] Work Phone: [address] [place], [place] 8930108-23-2022 00:54-0400 Diastolic blood igvdszow61 mm[Hg]Services [employer] Work Phone: 1(376)55196 [address]08-23-2022 00:54-0400 Heart rate81 /[employer] Work Phone: [address] [place], [place] 8930108-23-2022 00:54-0400 Respiratory rate20 /[employer] Work Phone: [phone])[address] [place], [place] 8930108-23-2022 00:54-0400 SaO2% (BldA) [Mass fraction]99 %Services [employer] Work Phone: 1(104)[address] [place], [place] 8930108-23-2022 00:54-0400 Systolic blood qomxsogw022 mm[Hg]Services [employer] Work Phone: 1(368)[address] [place], [place] 8930108-22-2022 18:29-0400 Body .02 [facility] Work Phone: 1(015)[address] [place], [place] 8930108-22-2022 18:29-0400 Body jqcbemirwud65.6 [degF]Services [employer] Work Phone: 1(207)[address] [place], [place] 8930108-22-2022 18:29-0400 Body ehyeiz508.86 kgSerCovelus Work Phone: 1(659)[address] [place], [place] 8930107-27-2022 20:30-0400 Body odtgnt991.02 [facility] Work Phone: 1(259)[address] [place], [place] 8930107-27-2022 20:30-0400 Body thttzalvlja78 [degF]Services [employer] Work Phone: 1(087)[address] [place], [place] 8930107-27-2022 20:30-0400 Body roeyqk983.6 kgSerCovelus Work Phone: 1(545)[address] [place], [place] 8930107-27-2022 20:30-0400 Diastolic blood vteifmxw84 mm[Hg]Services [employer] Work Phone: 1(707)04296 [address]07-27-2022 20:30-0400 Heart rate87 /[employer] Work Phone: 1(840)841-[address] [place], [place] 0882307-27-2022 20:30-0400 Respiratory rate22 /[employer] Work Phone: 1(797)19496 [address]07-27-2022 20:30-0400 SaO2% (BldA) [Mass fraction]99 %Services [employer] Work Phone: 1(554)671-[address] [place], [place] 0882307-27-2022 20:30-0400 Systolic blood geqmfiiv914 mm[Hg]Services [employer] Work Phone: 1(122)89896 [address]07-19-2022 01:28-0400 Diastolic blood rlelvxdk98 mm[Hg]Services [employer] Work Phone: 1(556)35096 [address]07-19-2022 01:28-0400 Heart rate70 /[employer] Work Phone: 1(086)13196 [address]07-19-2022 01:28-0400 Respiratory rate18 /[employer] Work Phone: 1(947)68696 [address]07-19-2022 01:28-0400 SaO2% (BldA) [Mass fraction]98 %Services [employer] Work Phone: 1(892)41096 [address]07-19-2022 01:28-0400 Systolic blood kicyqhme431 mm[Hg]Services [employer] Work Phone: 1(026)715-[address] [place], [place] 0882307-18-2022 20:44-0400 Body nozkwu446.02 cmSpromedica bay park hospitalOceansblue Systems Work Phone: 1(216)50196 [address]07-18-2022 20:44-0400 Body mass index (BMI) [Ratio]42.5 kg/b8Ddpilncl [employer] Work Phone: 1(762)205-[address] [place], [place] 0882307-18-2022 20:44-0400 Body mzvcrocnymp64.2 [degF]Services [employer] Work Phone: 1([phone])[address]96 [address]07-18-2022 20:44-0400 Body .86 kgServicSpecialized Vascular Technologies Work Phone: [facility]06-22-2022 18:42-0400 Heart rate93 /minSpromedica bay park hospitalices [employer] Work Phone: 1([phone]-[facility]06-22-2022 17:16-0400 Body .02 cmSpromedica bay park hospitalices [employer] Work Phone: 1(347)220-[address] [place], [place] 0882306-22-2022 17:16-0400 Body mass index (BMI) [Ratio]42.7 kg/f9Uxlfzkss [employer] Work Phone: [facility]06-22-2022 17:16-0400 Body ggizugqyxsc77.5 [degF]Services [facility] [employer] Work Phone: 1(348)317-[address] [place], [place] 0882306-22-2022 17:16-0400 Body ameuth057.45 kgSerroxbury treatment center [employer] Phone: 1(684)166-[facility]06-22-2022 17:16-0400 Diastolic blood ijaibrql44 mm[Hg]Services [employer] Work Phone: [phone]-[facility]06-22-2022 17:16-0400 Respiratory rate20 /minSlincoln hospital [employer] Phone: 1(436)935-[address] [place], [place] 0882306-22-2022 17:16-0400 SaO2% (BldA) [Mass fraction]96 %Services [employer] Phone: 1([phone]-[facility]06-22-2022 17:16-0400 Systolic blood harxprdw713 mm[Hg]Services [employer] Phone: 1(632)517-[address] [place], [place] 0882301-06-2022 10:30-0500 Body zekyvh511.56 cmTMt. [facility] Other [facility] [employer] Other Encounters Encounter DateEncounter TypeCare ProviderFacilityStart: 02-03-2025 End: 37-29-9826Cdhbortay department patient visitMadeann Rene Facility:[facility]MCStart: 02-02-2025 End: 22-78-9938hriszlqbkmTOS-C KRISTAN LAUFacility: MilanStart: 02-02-2025 End: 53-23-9800Phuksvj encounter procedureKRISTAN LAU [phone]-[facility]egkbP[facility] [place] Start: 02-01-2025 End: 54-68-0797Tdumoikjp department patient visitKRISTAN LAUSaint Alphonsus [facility] Nampatart: 01-31-2025 End: 41-60-0281Tnjmhjjkl department patient visitCameron Rene [facility]: 01-28-2025 End: 65-15-0988Zxxxfyano department patient visitCourtney Robison MD Work Phone: [facility] Start: 01-27-2025 End: 42-65-0435Ruzqrweux department patient visitNikhil TubbsFacility:[facility] Start: 01-26-2025 End: 74-77-7019Kjcnmvtpp department patient visitJorge ParenteFacility:[facility]tart: 01-24-2025 End: 16-05-3842Fjgtiktmx department patient visitCameron Rene Facility:[facility]art: 01-22-2025 End: 80-16-7969Mwtmrlxwp department patient visitChandana VarelaFacility:[facility]tart: 01-21-2025 End: 73-18-7501Uteyaoonh department patient visitIBRFirelands Regional Medical Centertart: 01-20-2025 End: 07-70-5880Lhoosbaqv department patient visitCameron Rene Facility:[facility]tart: 01-18-2025 End: 88-86-9830Syifufinm department patient visitJenny King MD Work Phone: [facility] Start: 01-17-2025 End: 21-08-5478Bwfrosexs department patient visitNikhil TubbsFacility:[facility] Start: 01-17-2025 End: 96-76-3957Sncianuzi department patient visitSamcheko GhencianFacility:[facility] Start: 01-15-2025 End: 95-36-7729Lsmnrgwen department patient visitJohn ParenteFacility:FTMCStart: 01-03-2025 End: 56-32-1940Jftexfgyp department patient visitMora Waldrop Facility:[facility]MCStart: 01-02-2025 End: 87-03-8914Yubppypob department patient visitKristan Lau APRN Work Phone: [phone]-Kljyhwpjx Room Work Phone: Start: 12-28-2024 End: 96-86-2392Ugwvonudj department patient visitMayudithnedestrella MukundAdrien Rene [facility]: 12-27-2024 End: 84-34-3042Ybfmvcrcj department patient visitJohn ParenteFacility:FTMCStart: 12-21-2024 End: 60-91-0965Szpfhagrg department patient visitJohn ParenteFacility:FTMCStart: 12-16-2024 End: 59-74-7053Pqzzobnkn department patient visitKristan Lau HOT BLASTER Work Phone: [phone]-Cfirehqce Room Work Phone: Start: 12-16-2024 End: 22-68-5627Fiqtngaqm department patient visitMadeann Rene Facility:[facility]MCStart: 12-06-2024 End: 19-29-8926Athflyxvu department patient visitMadeann Rene Facility:[facility]MCStart: 12-01-2024 End: 31-04-7096Myuiybgdj department patient visitJohn ParenteFacility:FTMCStart: 11-30-2024 End: 38-19-3125Qqrqyeufi department patient visitJohn ParenteFacility:FTMCStart: 11-27-2024 End: 80-29-6278kmjbfsjxazSHMZLafourche, St[place] parishestart: 11-27-2024 End: 44-71-6877Heldttumyb hospital visit by August Calero DO Work Phone: JEANIE ORComment on above:PainStart: 11-23-2024 End: 77-84-7687Evifpwnzv department patient visitPHYBRADENMICHAEL [facility] Hospitaltart: 11-22-2024 End: 93-94-4658Okbmmqbjo department patient visitRupadeann Rene Facility:[facility]tart: 11-21-2024 End: 18-11-8843Niculqgcd department patient visitAbby Villareal PA-C [facility]tart: 11-20-2024 End: 46-23-0292Svqakwakp department patient visitKristan Gutiérrezmoniquealvarez HOT BLASTER Work Phone: [phone]-Tyuvvtder Room Work Phone: Start: 11-20-2024 End: 13-75-8406Gqdpkiume department patient visitAstrit H RoariFacility:[facility] Start: 11-20-2024 End: 84-23-0536cbuieptwcgDMEE [facility] Centertart: 11-20-2024 End: 27-54-0473Nlskhcmvnt hospital visit by Cristin [facility] 1 NpMercy Pre- Admission TestingComment on above:Failed back syndrome (Primary Dx)Start: 11-19-2024 End: 85-05-4443Hslpullpj department patient visitIBRMONICA [facility] Hospitaltart: 11-18-2024 End: 17-68-5873Oiqskwdpp department patient visitAstrit H HamanuelariFacility:[facility] Start: 11-12-2024 End: 83-28-0683Wwevowbna department patient visitMicstuart Rausch Kathy DO Work Phone: [facility] Emergency DepartmentComment on above:Acute exacerbation of chronic low back pain (Primary Dx); Drug-seeking behaviorStart: 11-11-2024 End: 92-84-4927Xqkomoeiw department patient visitNIAvera McKennan Hospital & University Health Centertart: 11-11-2024 End: 29-89-3054Dglpwwsgw department patient visitRupayudithfidel NguyenAdrien Rene Facility:FTMCStart: 11-09-2024 End: 37-16-2078Pwdmqzwgy department patient visitMelody Owens MD Work Phone: [facility] Emergency MedicineComment on above:Acute exacerbation of chronic low back pain (Primary Dx)Start: 11-09-2024 End: 21-30-6441Kukrdogsb department patient visitADAProtestant Hospitaltart: 11-08-2024 End: 10-97-2325Vpvipwccr department patient visitKristan Lau APRN Work Phone: [phone]-Lmrknnbon Room Work Phone: Start: 11-08-2024 End: 00-43-4012Jkvqfbwof department patient visitCameron Rene Facility:FTMCStart: 11-03-2024 End: 01-95-9040bowvbdofwzPHE-C KRISTAN LAUFacility:[facility] ClinicStart: 11-03-2024 End: 86-74-2997Ycievco encounter procedureKRISTAN LAU [phone]-JgtbnPike [facility] Hospital [facility] [place] Start: 11-01-2024 End: 24-14-0845Jpeibemcm department patient visitKristan Lau APRN Work Phone: [phone]-Jryudwcfb Room Work Phone: Start: 11-01-2024 End: 99-81-7863Ixeugrmaa department patient visitMora Waldrop Facility:FTMCStart: 10-31-2024 End: 94-82-1924Jhuaubajd department patient visitKRISTAN Jimenez Emergency DepartmentComment on above:Acute exacerbation of chronic low back pain (Primary Dx); Elevated blood pressure readingStart: 10-30-2024 End: 07-43-6730Uwprwrxhj department patient visitCameron MukundAdrien Rene Facility:[facility]tart: 10-29-2024 End: 45-42-4997Phggrzbdi department patient visitKristan Lau APRN Work Phone: [phone]-Knudhlfxf Room Work Phone: Start: 10-29-2024 End: 73-09-5099Gpemfhafg department patient visitKRISTAN Brooks [facility]ertart: 10-28-2024 End: 34-72-6982Frzaoncpq department patient visitJeyson Caban MD Work Phone: [facility] Emergency DepartmentComment on above: Acute exacerbation of chronic low back pain (Primary Dx)Start: 10-28-2024 End: 27-02-2979Ygenppdfi department patient visitAstrute Bridger AnnetteFacility:[facility] Start: 10-25-2024 End: 97-34-5164Oqbpnoito department patient visitSelise WestnFacility:[facility] Start: 10-24-2024 End: 69-35-6299Jukzlwser department patient visitBilly Kearney DO Work Phone: [facility] Emergency DepartmentComment on above: Acute exacerbation of chronic low back pain (Primary Dx)Start: 10-23-2024 End: 45-81-5512Skhztzqvc department patient visitKristan Lau APRN Work Phone: [phone]-Qwzbmzjem Room Work Phone: Start: 10-23-2024 End: 28-60-7519Ekazivxox department patient visitTim ThomasFacility:[facility]ENTERtart: 10-22-2024 End: 87-92-6939Xdppapbpd department patient visitNICSORAIDA MOYERNewYork-Presbyterian Hospitalkim [facility] Systemtart: 10-22-2024 End: 04-25-1955xsghnosebtJMWELZBIETA LAUFacility:[facility] ClinicStart: 10-22-2024 End: 34-98-0808Eqwqjtt encounter procedureKRISTAN LAU [phone]-KavbjPremier Health [facility] Start: 10-21-2024 End: 13-01-6494Irinlykcf department patient visitKristan Gutiérrezmoniquealvarez HOT [employer]ER Work Phone: [phone]-Pwmqstivy Room Work Phone: Start: 10-19-2024 End: 79-81-3718Pkzqtctpr department patient visitJomillicent ParenteFacility:FTMCStart: 10-18-2024 End: 05-28-6774Whkwjwsrq department patient visitKristan Jenniferinna HOT BLASTER Work Phone: [phone]-Bptnpacve Room Work Phone: Start: 10-15-2024 End: 98-90-8832Gsfaxeqbj department patient visitCameron Rene Facility:[facility]ENTERtart: 10-14-2024 End: 10-10-9651Dwovbtxee department patient visitKRISTAN GUTIÉRREZSHAYDayo [place] Emergency DepartmentComment on above:Chronic midline low back pain without sciatica (Primary Dx)Start: 10-13-2024 End: 88-08-2594Eplsgldtl department patient visitKristan Gutiérrezdemetriusinna HOT BLASTER Work Phone: [phone]-Jmcyqtziv Room Work Phone: Start: 10-13-2024 End: 77-57-5052maftxrmshrYVMFCO R CIERSEZWSKIFacility:[facility] ClinicStart: 10-13-2024 End: 24-84-4176Vnclwgn encounter procedureKRISTAN LAU [phone]-UgiggPremier Health [facility] Start: 10-13-2024 End: 36-32-2070Kmpmcvhrz department patient visitAstrit H RoariFacility:[facility] Start: 10-08-2024 End: 04-33-6437gtlqlcevytQSLAAliyah Arreola [facility] Centertart: 10-08-2024 End: 70-05-5469Vyrsiloyxo hospital visit by August Calero DO Work Phone: MALZ ORStart: 10-06-2024 End: 27-62-0753Pownducin department patient visitKristan Gutiérrezmoniquealvarez [employer]ER Work Phone: [phone]-Iezvsbepb Room Work Phone: Start: 10-06-2024 End: 60-57-7447Temddbkdx department patient visitJomillicent ParenteFacility:[facility]tart: 10-05-2024 End: 59-02-3970Ocijjxuod department patient visitLilia Chin DO Work Phone: [facility] Emergency DepartmentComment on above: Chronic midline low back pain with bilateral sciatica (Primary Dx)Start: 10-04-2024 End: 01-74-7810Bpxovmqrs department patient visitNikhil TubbsFacility:[facility] Start: 10-03-2024 End: 44-99-6610Xcfasopvv department patient visitKristan Judi H[employer]ER Work Phone: [phone]-Hspyofhzt Room Work Phone: Start: 10-02-2024 End: 01-31-3429Bitngiuzy department patient visitMocourtneycourtney Bakari Menjivar PA-C [facility]tart: 10-01-2024 End: 49-57-7668Utosbndka department patient visitYOGESH [facility] Hospitaltart: 10-01-2024 End: 59-00-1374Iwkvaindl department patient visitCameron Rene Facility:[facility]tart: 09-30-2024 End: 82-65-6724Ghiiwgwmr department patient visitKRISTAN Todd [facility] Emergency DepartmentComment on above:Acute exacerbation of chronic low back pain (Primary Dx); Sciatica of left side; Chronic left-sided low back pain with left-sided sciatica; Elevated blood pressure readingStart: 09-28-2024 End: 87-20-9922Icvljhxym department patient visitKristan Judi JOHNSON Work Phone: [phone]-Xvmejwqbj Room Work Phone: Start: 09-27-2024 End: 62-45-1645Ikqlozicb department patient visitWESTLEYSORAIDA VELAZCO [facility] Hospitaltart: 09-26-2024 End: 14-41-0377Ixuceqkbl department patient visitNikhil MukundAdrien Tubbs [facility] Start: 09-23-2024 End: 28-73-5714Wonhhiipa department patient visitPhoenixdevendramargarita Judi JOHNSON Work Phone: [phone]-Qsbuoajwm Room Work Phone: Start: 09-21-2024 End: 41-40-5177Wzvqyuhht department patient visitRoyamillicent Arnaldo [facility] Start: 09-17-2024 End: 05-29-8230Omkolztny department patient visitMANFREDANJALI [facility] Hospitaltart: 09-16-2024 End: 91-80-5524Qmrdsehjo department patient visitKRISTAN Todd [facility] Emergency DepartmentComment on above:Chronic left-sided low back pain with left- sided sciatica (Primary Dx)Start: 09-15-2024 End: 55-46-4588Whdczxdgd department patient visitKristan Judi JOHNSON Work Phone: [phone]-Pdqqneeks Room Work Phone: Start: 09-14-2024 End: 56-17-2986Eagjvijib department patient visitPHOENIXDEVENDRAMARGARITA Todd Jimenez Emergency DepartmentComment on above:Acute exacerbation of chronic low back pain (Primary Dx); H/O degenerative disc diseaseStart: 09-13-2024 End: 86-27-1783Kvxtiqkdx department patient visitMik Jenkins MD Work Phone: [facility] Emergency DepartmentComment on above: Chronic left-sided low back pain with left-sided sciatica (Primary Dx)Start: 09-13-2024 End: 35-10-3394Yaksrbhrq department patient visitAryanene NguyenAdrien Tubbs [facility] Start: 09-12-2024 End: 39-27-9781Htiiponwu department patient visitKristan Lau APRN Work Phone: [phone]-Otlqsydmg Room Work Phone: Start: 09-06-2024 End: 24-42-6896Dtmdxdtuq department patient visitANASTASIIASt. Joseph Medical Centertart: 09-05-2024 End: 30-56-3583Zwenrnrgr department patient visitPHOENIXCASIMIRO [facility] [place] Emergency DepartmentComment on above:Acute exacerbation of chronic low back pain (Primary Dx); Sciatica of left sideStart: 09-04-2024 End: 62-76-0792Qbbgyxpdj department patient visitBalbina [facility] Start: 09-01-2024 End: 47-53-5496Vkigslwgg department patient visitPHOENIXCASIMIRO Brooks [place] Emergency DepartmentComment on above:Acute exacerbation of chronic low back pain (Primary Dx)Start: 08-31-2024 End: 34-02-8380Lkcjivrqc department patient visitKristan Lau APRN Work Phone: [facility]-Emergency Room Work Phone: Start: 08-30-2024 End: 49-75-1707Lgqfogyzg department patient visitKRISTAN Jimenez Emergency DepartmentComment on above:Acute exacerbation of chronic low back pain (Primary Dx)Start: 08-28-2024 End: 31-50-3154Ygpcvxzru department patient visitFlex Malave MD Work Phone: [facility] Emergency MedicineComment on above:Chronic left-sided low back pain with left-sided sciatica (Primary Dx) Start: 08-27-2024 End: 43-45-8744Odoukaagz department patient visitPHYSICIANJALI HYMAN [facility]-Emergency Room Work Phone: Start: 08-27-2024 End: 30-32-8473Racfdxgak department patient visitNikhil Tubbs [facility] Start: 08-26-2024 End: 23-12-1503Ptoajzlvb department patient visitKRISTAN Browne Emergency DepartmentComment on above:Acute exacerbation of chronic low back pain (Primary Dx)Start: 08-26-2024 End: 86-61-3800jlgurxkxbxXSG-C KRISTAN LAUFacility: MilanStart: 08-26-2024 End: 02-00-6157Ceiprcj encounter procedureKRISTAN LAU [phone]-XnqzwP[facility] Start: 08-21-2024 End: 16-57-8274Xvynxssrj department patient visitKRISTAN Browne Emergency DepartmentComment on above:Spinal stenosis of lumbar region, unspecified whether neurogenic claudication present (Primary Dx); Acute cystitis without hematuriaStart: 08-20-2024 End: 76-13-5173Olnttrxwd department patient visitJACASIMIRO Jimenez Emergency DepartmentComment on above:Acute exacerbation of chronic low back pain (Primary Dx); Left leg numbness; Failed back syndromeStart: 08-18-2024 End: 54-08-1921Pqdygpgui department patient visitKRISTAN Browne Emergency DepartmentComment on above:Acute exacerbation of chronic low back pain (Primary Dx)Start: 08-17-2024 End: 10-03-2955Terfvpznd department patient visitAstrit Bridger BryantC[facility] Clinic Start: 08-16-2024 End: 67-40-8781Caaensoup department patient visitPHYSICIAN NO [facility]gency Room Work Phone: Start: 08-15-2024 End: 84-83-6739Iihmptpji department patient visitJACLMARGARITA [facility]art: 08-13-2024 End: 81-81-6037Pybtgtitl department patient visitPHYSICIAN NO [facility] Work Phone: Start: 07-24-2024 End: 02-54-5380Abcrljtia department patient visitSsamantavenessa Muñoz Kailash ZAVALAN-WAIVER ANALYST [facility]art: 07-21-2024 End: 59-97-6384Ftk-admission assessmentKRISTAN LAU [facility] Start: 07-21-2024 End: 59-86-2852drsgibhiapWUYJUBCarmita LAUFacility:[facility]Start: 07-20-2024 End: 54-25-1327Ruujmzbcn department patient visitNikhil Tubbs [facility] Start: 07-15-2024 End: 63-95-2205kbynicqftaIUOCEVCarmita LAUFacility:[facility] ClinicStart: 07-13-2024 End: 30-85-7327Flkrvfrfk department patient visitPHYSICIAN [facility] Work Phone: Start: 07-12-2024 End: 92-94-2297Tcmzcvelz department patient visitNikhil Tubbs [facility] Start: 07-11-2024 End: 15-47-7895Hoiwramww department patient visitPHYSICIAN NO [facility] Work Phone: Start: 07-10-2024 End: 99-08-7064Xycbquddc department patient visitPHYSICIAN NO [facility] Work Phone: Start: 07-08-2024 End: [id number] department patient visitLynn Salas MD Work Phone: [facility] DepartmentStart: 07-07-2024 End: [id number] department patient visitPHYSICIAN NO [facility] Work Phone: Start: [id number] LAU Facility: [place]: 07-06-2024 End: [id number] department patient visitFlex Malave MD Work Phone: [facility] Emergency MedicineStart: 07-05-2024 End: 85-42-8694Szdkmcczr department patient visitNikhil Tubbs [facility] Start: 07-04-2024 End: 64-91-5688Bovvvxeqt department patient visitPHYSICIAN NO [facility] Work Phone: Start: 07-03-2024 End: 80-94-2129Ikhqpntza department patient visitAstrit Bridger [facility]teC[facility] Start: 07-01-2024 End: 56-56-5006lqutjkhnlpYNBRRLJamal LAUFacility:FTMCStart: 07-01-2024 End: 41-73-2769Fdxpbbx encounter procedureKRISTAN LAU [facility] Start: 06-29-2024 End: 12-25-5141Kkqwlxdpm department patient visitPHYSICIAN [facility] Work Phone: Start: 06-27-2024 End: 34-40-3214Frahkdgzi department patient visitSelise Dyer MD Work Phone: [facility] Emergency MedicineComment on above:Chronic left-sided low back pain, unspecified whether sciatica present (Primary Dx); Paresthesia of left legStart: 06-26-2024 End: 02-57-8079Mpucthvyl department patient visitPHYSICIAN [facility] Work Phone: Start: 06-23-2024 End: 65-14-5620Cmtbnnfwxb hospital visit by Collin Farmer [address] [place], [place] [address]Comment on above: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; Hepatic fibrosis, advanced fibrosisStart: 06-23-2024 End: 97-29-2385ecsiflrhfnPDAVFG [facility]tart: 06-23-2024 End: 06-78-9207Jad Caio LAU [facility] Start: 06-23-2024 End: 26-25-1801bxlcdkiwvbNZOPEPITO LAUFacility:FTMCStart: 06-22-2024 End: 35-60-3541Cxgziemha department patient visitJorge Mcintosh [facility] Start: 77-15-9138mwwqcexigtELRNSt. Bernard Parish Hospitaltart: 06-20-2024 End: 89-67-2000Vyjmrnxkzl hospital visit by Vivian Poe MD Work Phone: [facility] Diagnostic RadiologyComment on above: ArrivedStart: 06-20-2024 End: 83-39-1413Shgiwatfe department patient visitLynn Salas MD Work Phone: [facility] Emergency DepartmentStart: 06-20-2024 ambulatoryJOEL [facility]3]tart: 06-18-2024 End: 50-21-9424Lqauybzgk department patient visitAcutecare Health System Emergency DepartmentStart: 06-17-2024 End: 44-89-6011Sgpfunkis department patient visitPHYSICIAN [facility] Work Phone: Start: 06-11-2024 End: 38-33-9461xadbjlhgssQHDKFWBMJTZGood Samaritan Hospitaltart: 06-11-2024 End: 37-11-4859Xgwanmcfw department patient visitFatou Tellez MD Work Phone: [facility] 55Comment on above:Back pain, unspecified back location, unspecified back pain laterality, unspecified chronicity (Primary Dx); Chronic pain syndrome; Acute on chronic back pain; Chronic low back pain with left-sided sciatica, unspecified back pain laterality; Back pain with radiation; Lumbar disc herniation with radiculopathy; Chronic low back pain without sciatica, unspecified back pain laterality; Continuous opioid dependence (Multi); Lumbar radiculopathy, acute; Chronic back pain greater than 3 months durationStart: 06-10-2024 End: 97-62-4855Qgysgxuam department patient visitPHYSICIAN [facility] Work Phone: Start: 06-10-2024 End: 74-16-2085Oqnynnbak department patient visitBalbina Bridger An[facility]teC[facility] Start: 06-06-2024 End: 05-71-3966Akaatozxq department patient visitJennifer Pierce MD Work Phone: [facility] Emergency and Level 1 Trauma CenterStart: 24-70-1531kcaglcgrpaBCBXDI JENNIFERKIFacility:[facility] ClinicStart: 05-31-2024 End: 95-22-6491Xnbcntvlm department patient visitNikhil MukundAdrien TubbsFacility:[facility] Start: 05-30-2024 End: 30-66-5594Uncwwpxnq department patient visitPHYSICIAN NO [facility] Ctr-Emergency Room Work Phone: Start: 05-28-2024 End: 18-63-1317Facaorkyn department patient visitPHYSICIAN NO [facility] Ctr-Emergency Room Work Phone: Start: 05-27-2024 End: 58-73-3410Gshhigclz department patient visitAllyson Grullon MD Work Phone: [facility] Emergency MedicineComment on above:Acute exacerbation of chronic low back pain (Primary Dx)Start: 05-26-2024 End: 47-92-5020Joppmwyrw department patient visitMARLEE Rausch [facility] Emergency MedicineComment on above:Acute exacerbation of chronic low back pain (Primary Dx)Start: 05-25-2024 End: 41-47-9418Lpezsdheo department patient visitPHYSICIAN NO [facility] Ctr-Emergency Room Work Phone: Start: 05-23-2024 End: 38-90-2944Kvyyfsuaa department patient visitJorge Mcintosh [facility] Start: 05-15-2024 End: 69-55-4494Ynquohuap department patient visitMAGGIE StaleyAshtabula County Medical Centertart: 05-15-2024 End: 95-42-0979Xsjlpmnxob and management of inpatientMaggie Degroot MD Work Phone: [facility] 3Comment on above:Chronic midline low back pain without sciatica (Primary Dx); Chronic low back pain with left-sided sciatica, unspecified back pain laterality; Chronic pain syndrome; Back pain with radiationStart: 05-14-2024 End: 35-78-6188Pldfxxjgr department patient visitRd Reza MD Work Phone: uh [facility] Emergency MedicineComment on above:Acute exacerbation of chronic low back pain (Primary Dx)Start: 05-14-2024 End: 54-58-0183Febougqhf department patient visitAstrit [facility] Start: 05-05-2024 End: 00-86-0974atpdxwgjrnRTZMUGOLSt. Anthony's Hospital Start: 05-05-2024 End: 88-15-4762Qkllvi follow up visit related to original Edgardo Woodard MD Work Phone: uh [facility] PavilionComment on above:Lumbar disc herniation with radiculopathy (Primary Dx)Start: 05-01-2024 End: 57-63-7303Ghcnawgzrp and management of inpatientMOHAMAD A [facility]tart: 05-01-2024 End: 03-98-6423rhmypacesnPAYPGECLHQSAvita Health System Ontario Hospitaltart: 05-01-2024 End: 16-67-7815Keeetblcnd and management of inpatientElke Bai MD Work Phone: uh [facility] 6Comment on above:Chronic low back pain with left-sided sciatica, unspecified back pain laterality (Primary Dx); Back pain with radiation; Postoperative pain after spinal surgery; Chronic pain syndromeStart: 04-28-2024 End: 90-67-5550Iqrcmlvup department patient visitAstrit [facility] Start: 04-27-2024 End: 61-86-8365bbdjlveypeHONZGBKMCleveland Clinic Union Hospitaltart: 04-24-2024 End: 98-94-0874Dafpymged department patient visitPHYSICIAN NO [facility] Ctr-Emergency Room Work Phone: Start: 04-23-2024 End: 73-87-6398Znrelhysf department patient visitMora Mandujano MD Work Phone: [facility] Emergency MedicineComment on above:Acute on chronic back pain (Primary Dx)Start: 04-23-2024 End: 79-75-7023Cvukgcqkp to same day surgery centerTerri Vergara PA-C Work Phone: brx SurgeryComment on above:Postoperative seroma of musculoskeletal structure after musculoskeletal procedure (Primary Dx)Start: 04-23-2024 End: 76-58-9848qhpixgyzsfYIZJMEI BONUSFacility:[facility] Hospitaltart: 04-23-2024 End: 75-76-9377Lekkozhmqcnx consultation with patientTerri Vergara PA-C Work Phone: [facility] SurgeryStart: 04-21-2024 End: 05-57-5008Ltazvpygr department patient visitPHYSICIAN NO [facility] Ctr-Emergency Room Work Phone: Start: 04-19-2024 End: 62-14-9426Ciohcjprp department patient visitNikhil Tubbs [facility] Start: 04-17-2024 End: 16-12-8982Xwwwzsjin department patient visitAstrit Bridger Tjcility:[facility] Start: 04-13-2024 End: 07-27-2167Xcwtpdwnv department patient visitAstrit [facility] Start: 04-12-2024 End: 40-05-4554Lumplbkta department patient visitAstrit [facility] Start: 04-08-2024 End: 89-12-9103Pzobm abstractingUnk Pcp (Hist)NeurologyStart: 04-06-2024 End: 14-25-9699yocljfhqnvVcc J George DO Work Phone: [facility] AtlantaComment on above:NO SHOW (Primary Dx)Start: 04-06-2024 End: 85-67-2676Atozvvaajqka consultation with Chen Alaniz DO Work Phone: [facility]art: 03-30-2024 End: 21-39-0518Jptrvh outpatient visit 25 minutesDino Melgoza MD Work Phone: [facility] HospitalComment on above: Postlaminectomy syndrome, lumbar region (Primary Dx)Start: 03-30-2024 End: 49-93-0868maossvlvrmVSEMGAFQ Maldonado [facility] Hospitaltart: 03-29-2024 End: 57-64-7785Jhaocnjcj department patient visitVENZENA [facility] Facility:[facility] Hospitaltart: 03-28-2024 End: 19-95-0734Xdcfyssst department patient visitJomillicent Mcintosh [facility] Start: 03-27-2024 End: 52-31-8426Cyqwgrelm department patient visitDalton Grey MD Work Phone: [facility] Emergency MedicineComment on above:Chronic low back pain with left-sided sciatica, unspecified back pain laterality (Primary Dx)Start: 03-26-2024 End: 76-61-2335Mgeyguiey department patient visitElisa Sánchez [facility] Start: 03-26-2024 End: 20-54-6740Fbcijzetl department patient visitNO ASSIGNED PCP GENERIC PROVIDERSt. Thomas More Hospital Emergency MedicineComment on above:Lumbar strain, initial encounter (Primary Dx)Start: 03-25-2024 End: 03-71-1435Vebddpory department patient visitJOSHWood County Hospitaltart: 2024 End: 32-80-8071Ijhrylxpw department patient visitJANAY WHATLEYOhio State Health Systemtart: 2024 End: 97-50-8276Cxcucmozc department patient visitAbby Nick Villareal PA-C [facility]: 03-21-2024 End: 16-73-9933Rukrlrtnl department patient visitJorge Mcintosh [facility] Start: 03-19-2024 End: 25-51-7464Sraohpxkg department patient visitMARLEE Rausch [facility] Emergency MedicineComment on above:Bilateral low back pain without sciatica, unspecified chronicity (Primary Dx); Fall, initial encounterStart: 03-18-2024 End: 16-04-5813Tjdfgnuwr department patient visitJorge Mcintosh [facility] Start: 03-10-2024 End: 17-90-5088Odralp follow up visit related to original Edgardo Woodard MD Work Phone: [facility] SoutheasternonComment on above:Lumbar disc herniation with radiculopathy (Primary Dx); Status post lumbar discectomyStart: 03-10-2024 End: 03-33-9969slioeerlubUXSLRJWP [facility] Start: 03-09-2024 End: 32-68-3473Xgrwaelik department patient visitJarocho Delatorre DO Work Phone: [facility] Emergency MedicineComment on above:Closed fracture of sacrum, unspecified portion of sacrum, initial encounter (Multi) (Primary Dx); Acute left-sided low back pain with left-sided sciaticaStart: 03-03-2024 End: 03-84-9204Uontdk outpatient new 30 minutesVictoria David Burger HOT BLASTER-WAIVER ANALYST Work Phone: [facility] HospitalComment on above:Rib pain on left side (Primary Dx)Start: 03-03-2024 End: 99-95-0926endpxmjmovFLNNOJRVOhio State East Hospitaltart: 03-02-2024 End: 41-77-3171Lnauqe outpatient new 45 Diana Fitzpatrick MD Work Phone: uh [place] Internal MedicineComment on above:Primary hypertension (Primary Dx); Hepatic fibrosis, advanced fibrosis; Morbid obesity (Multi); Chronic low back pain without sciatica, unspecified back pain laterality; Current smokerStart: 03-02-2024 End: 80-95-7825kzmpmuzqrpLGKTPDEJZTH S KELECHIThe [facility] Start: 02-29-2024 End: 95-35-4400Lsjjvxxqj department patient visitPedro Pablo Fletcher [facility] Start: 02-27-2024 End: 77-14-7021Mmwfzloxt department patient visitNikhil Tubbs [facility] start: 02-26-2024 End: 40-27-4138Qqjlkwxas department patient visitJorge Mcintosh [facility] Start: 02-23-2024 End: 83-58-9656Ajuykspuz department patient visitAstrute Sparks [facility]netteC[facility] Start: 02-20-2024 End: 93-96-9461Hlpgqbdyu department patient visitNikhil Tubbs [facility] start: 02-16-2024 End: 52-79-6639Hipjeyxin department patient visitNikhil Tubbs [facility] Start: 02-14-2024 End: 27-56-4219Mhddmyjgd department patient visitJomillicent Mcintosh [facility] Start: 02-09-2024 End: 71-72-7364Wyutmmedp department patient visitAllyson Hardwick MD Work Phone: [facility] Emergency MedicineComment on above:Encounter for management of wound VAC (Primary Dx); Postoperative pain after spinal surgeryStart: 02-06-2024 End: 19-45-5898Kawufdebec hospital visit by physicianJudah Woodard MD Work Phone: uh [facility] ORComment on above:Lumbar disc herniation with radiculopathy (Primary Dx)Start: 02-06-2024 End: 30-09-6799cegflrpfjrVDMKYNBC [facility] Start: 02-06-2024 End: 72-52-9034Vnbnokvudq hospital visit by physicianGea C-Arm [address] [place], [place] [address]Comment on above:Back painStart: 02-05-2024 End: 18-09-1735Oztdhajhr department patient visitSSCCI [facility] Work Phone: [facility]-Emergency Room Work Phone: Start: 02-04-2024 End: 59-49-0067Wzflpmbuy department patient visitJomillicent Mcintosh [facility] Start: 02-04-2024 End: 26-83-6789Fzcxei outpatient new 45 minutesDino Melgoza MD Work Phone: [facility] HospitalComment on above:Chronic low back pain without sciatica, unspecified back pain laterality (Primary Dx)Start: 02-04-2024 End: 51-00-4115cededsjxzbXBTUSCUY I KABBARACleveland Clinic [facility]ucl[facility] Hospitaltart: 01-30-2024 End: 49-45-9557Osulydypy department patient visitNO ASSIGNED PCP GENERIC PROVIDERMargaretville Memorial Hospital Emergency MedicineComment on above:Fall, initial encounter (Primary Dx); Chronic low back pain with left-sided sciatica, unspecified back pain laterality Start: 01-29-2024 End: 09-05-6012axanjnkbshPWBVOJWYOur [facility] of [facility] Start: 01-29-2024 End: 45-26-3666Uogptldjp for other preprocedural examinationABUniversity Hospitals TriPoint Medical Centertart: 01-27-2024 End: 96-58-7363hxlfspwtlyJXBRTSMBarberton Citizens Hospitaltart: 01-27-2024 End: 1977Nxffxolrru hospital visit by Chyna Man MD Work Phone: [facility] 2Comment on above:Chronic pain syndrome (Primary Dx); Acute left-sided low back pain with left-sided sciatica; Left leg weaknessStart: 39-87-8454wvbfkggnyyZXSB M [facility] Hospitaltart: 01-26-2024 End: 40-20-4259Ruwqqgsoj department patient visitBib Bowman MD Work Phone: [facility] Emergency MedicineComment on above:Acute left-sided low back pain with left-sided sciatica (Primary Dx)Start: 01-26-2024 End: 59-01-6908Raanfxjpe department patient visitServAtrium Health Work Phone: [facility]-Emergency Room Work Phone: Start: 01-25-2024 End: 67-42-5596Lolmumpan department patient visitJoRoosevelt General Hospital [facility] Start: 01-24-2024 End: 88-93-9632Yjqbtgdwz department patient visitNO ASSIGNED PCP GENERIC PROVIDERSt. Thomas More Hospital Emergency MedicineComment on above:Acute bilateral low back pain without sciatica (Primary Dx)Start: 01-23-2024 End: 99-62-2840Isbzlpytc department patient visitAlexute Sparks AnnetteC[facility] Start: 01-21-2024 End: 80-09-6400Tycmlvyfd department patient visitNO ASSIGNED PCP GENERIC PROVIDERSSM Health St. [facility] Emergency MedicineComment on above:Acute left- sided low back pain with left-sided sciatica (Primary Dx)Start: 01-21-2024 ambulatoryABGeorgetown Behavioral Hospitaltart: 01-16-2024 End: 61-19-4867Qapehpvsl department patient visitServAtrium Health Work Phone: [facility] Work Phone: Start: 01-14-2024 End: 14-09-3501Npvxvlull department patient visitNikhil Tubbs [facility] Start: 01-14-2024 End: 55-44-9124vsschnlrzqYIJOKESYSt. Anthony's Hospital Start: 01-14-2024 End: 01-07-1186Jgjakl outpatient new 60 minutesAbhistc Woodard MD Work Phone: [facility] PavilionComment on above:Lumbar disc herniation with radiculopathy (Primary Dx)Start: 01-13-2024 End: 05-16-7104Ncxtfjibg department patient visitNO ASSIGNED PCP GENERIC PROVIDERSt. Thomas More Hospital Emergency MedicineComment on above:Acute midline low back pain without sciatica (Primary Dx)Start: 01-10-2024 End: 34-25-2253Iexktkbjk department patient visitHARMOHIADA FITZPATRICKMargaretville Memorial Hospital Emergency MedicineComment on above:Chronic low back pain with sciatica, sciatica laterality unspecified, unspecified back pain laterality (Primary Dx); Left leg weakness; Decreased sensation of leg; Lumbar disc herniationStart: 01-06-2024 End: 44-49-6068tmyxjpotebDHZV G [facility] Centertart: 01-06-2024 End: 77-97-4745Bhmqgeaas department patient visitAce Rodgers MD Work Phone: [facility] Centerdg A 1Comment on above:Left leg weakness (Primary Dx); Chronic back pain greater than 3 months durationStart: 01-06-2024 End: 89-48-4379Owkqrsihx department patient visitJorge Mcintosh [facility] Start: 01-01-2024 End: 49-99-5946Qwsggowhkz and management of inpatientJoberto Rodgers MD Work Phone: [facility] Centerdg A 6Comment on above:Left leg weakness (Primary Dx); Chronic midline low back pain, unspecified whether sciatica present; Spinal stenosis of lumbar region, unspecified whether neurogenic claudication present; Acute exacerbation of chronic low back painStart: 12-30-2023 End: 89-62-3139Bnsbxstoq department patient visitNO ASSIGNED PCP General acute hospital Emergency MedicineComment on above:Acute exacerbation of chronic low back pain (Primary Dx)Start: 12-27-2023 End: 26-48-9884Llulfe follow up visit related to original Aline Adams MD Work Phone: [facility] PavilionComment on above:Neuropathic pain (Primary Dx); Dehiscence of wound of skin, subsequent encounter; Status post insertion of spinal cord stimulatorStart: 12-27-2023 End: 57-60-7767gtciyqaqduACPCBFLP A SWEETTrinity Health System East Campustart: 12-26-2023 End: 41-22-2870Hgqgrbpbw department patient visitNikhil Tubbs [facility] Start: 12-26-2023 End: 07-74-9666Xkbydpwyc department patient visitServices [place] Work Phone: [facility]-Emer[facility] Work Phone: Start: 12-26-2023 End: 59-89-4803Gkpaehals department patient visitRaj ArmenFacility:[facility] Hospitaltart: 12-24-2023 End: 75-03-6870Ywpmklbxg department patient visitAstrute Starrreston hospital centerFacility:[facility] Start: 12-24-2023 End: 00-46-1134Jxqbiq outpatient visit 15 minutesChidi Joseph MD Work Phone: [facility] CenterComment on above: 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; Hepatic fibrosis, advanced fibrosisStart: 12-24-2023 End: 85-58-1131melooqpckdTJQOBZMercy Health Lorain Hospitaltart: 42-13-4320Cvc-patient / Non-visitServices [place] Work Phone: [facility] Work Phone: Start: 12-23-2023 End: 49-67-4303Vuwvnrxazr hospital visit by physicianSam Darian [address] [place], [place] [address]Comment on above:Chronic hepatitis C without hepatic coma (Multi)Start: 12-23-2023 End: 99-32-3588kakojysgscHSBUDFChillicothe Hospitaltart: 12-21-2023 End: 66-41-9203Cxttxqbpr department patient visitNO ASSIGNED PCP GENERIC PROVIDERSt. Thomas More Hospital Emergency MedicineComment on above:Acute exacerbation of chronic low back pain (Primary Dx); Contusion of lower back, initial encounterStart: 12-20-2023 End: 60-79-2583Kvslpvdsk department patient visitSgloria Linder HOT BLASTER-WAIVER ANALYST [facility] Networktart: 12-18-2023 End: 08-74-7661Bvqllrofx department patient visitFatou Tellez MD Work Phone: [facility] Emergency MedicineComment on above:Low back pain with sciatica, sciatica laterality unspecified, unspecified back pain laterality, unspecified chronicity (Primary Dx)Start: 12-15-2023 End: 33-86-8986Qoggqiarb department patient visitLilia Geronimo MD Work Phone: [facility] Emergency MedicineComment on above:Post-operative pain (Primary Dx); Visit for wound checkStart: 12-13-2023 End: 71-83-5620Jjnxoyngj department patient visitNO ASSIGNED PCP GENERIC PROVIDERSt. Thomas More Hospital Emergency MedicineComment on above:Skin irritation (Primary Dx); Acute left-sided low back pain without sciatica; Acute post-operative painStart: 12-13-2023 End: 94-62-9825Eksixpppj department patient visitJorge Mcintosh [facility] Start: 12-13-2023 End: 05-46-9180Ptpxlc follow up visit related to original pxElke Adams MD Work Phone: [facility] PavilionComment on above:Neuropathic pain (Primary Dx); Dehiscence of wound of skin, subsequent encounterStart: 12-13-2023 End: 06-02-5459qndgafwokgXJCYTAAI A SWEETTrinity Health System East Campustart: 12-12-2023 End: 84-12-4649Pwohiqalb department patient visitServices [place] Work Phone: [facility] Work Phone: Start: 12-11-2023 End: 12-59-2966Muynndokq department patient visitFelice GRAMAJO Work Phone: [facility] Emergency MedicineComment on above:Encounter for management of wound VAC (Primary Dx); Chronic low back pain without sciatica, unspecified back pain lateralityStart: 12-10-2023 End: 45-82-6114Ieewdfjia department patient visitDeclan Laureano MD Work Phone: [facility] Emergency MedicineComment on above:Encounter for management of wound VAC (Primary Dx)Start: 12-09-2023 End: 30-76-1835Ewkmhgsmp department patient visitJarocho Delatorre DO Work Phone: uh [facility] Emergency MedicineComment on above:Fall, initial encounter (Primary Dx); Closed head injury, initial encounter; Contusion of right shoulder, initial encounter; Degenerative arthritis of thumb, rightStart: 12-07-2023 End: 06-09-3770Okakppifs department patient visitMaggie Degroot MD Work Phone: [facility] Emergency MedicineComment on above:Acute midline back pain, unspecified back location (Primary Dx); Acute exacerbation of chronic low back painStart: 12-06-2023 End: 23-03-3400Hvxhlhrpy department patient visitSelise Dyer MD Work Phone: [facility] Emergency MedicineComment on above:Postoperative pain after spinal surgery (Primary Dx)Start: 12-06-2023 End: 50-64-5144Yyaotr follow up visit related to original Aline Adams MD Work Phone: uh [facility] HospitalComment on above:Dehiscence of wound of skin, subsequent encounter (Primary Dx); Neuropathic painStart: 12-06-2023 End: 94-32-2018ldgagobvqaXHYNKNEK A SWEETCommunity Memorial Hospital CenterStart: 12-05-2023 End: 50-90-0433Nevceisid department patient visitAlexit Bridger BryantFacility:[facility] Start: 12-04-2023 End: 00-76-5365Dkbhvuaph department patient visitBen Urbina MD Work Phone: [facility] Emergency and Level 1 Trauma CenterStart: 12-01-2023 End: 76-41-3099Qwpswbcuc department patient visitServices [place] Work Phone: [facility] Work Phone: Start: 12-01-2023 End: 25-98-5234Xxwvmdgfy department patient visitN[facility] Start: 11-29-2023 End: 39-06-6972Pxcqup follow up visit related to original Aline Adams MD Work Phone: uh [facility] PavilionComment on above:Dehiscence of wound of skin, subsequent encounter; Postoperative pain; Chronic back pain greater than 3 months durationStart: 11-29-2023 End: 03-26-3614yinzwcbqcwNAGMAJPXSelect Medical TriHealth Rehabilitation Hospitaltart: 11-27-2023 End: 47-64-1729Qqtxpddrs department patient visitAstrMount Carmel Health System Start: 11-26-2023 End: 82-35-2887Oiwfmlzzj department patient visitNo PCPFacility:FLCStart: 11-26-2023 End: 90-71-2744Musqskhml department patient visitLindselsi Bryant Facility:[facility] Hospitaltart: 11-25-2023 End: 94-04-4063Cmewebhpj department patient visitServAtrium Health Work Phone: [facility] Work Phone: Start: 11-24-2023 End: 75-58-5854Dkqautpji department patient visitAstrMount Carmel Health System Start: 11-22-2023 End: 20-80-5943Pualuw follow up visit related to original Aline Adams MD Work Phone: uh William ThomasilionComment on above:Chronic back pain greater than 3 months duration (Primary Dx); Neuropathic pain; Dehiscence of operative wound, subsequent encounterStart: 11-22-2023 End: 25-83-4856dcwnqnvwczVZLGPXQDMemorial Hospitaltart: 11-13-2023 End: 97-00-4557Xeixsobxlc and management of inpatientSjasper Jessica MD Work Phone: [facility] Yarel[place] 4Comment on above:Acute bilateral low back pain without sciatica (Primary Dx); Infection of deep incisional surgical site after procedure, initial encounter; Wound dehiscence; Postoperative infection, unspecified type, initial encounter; Post-op painStart: 11-10-2023 End: 39-35-9500Czptewlhf department patient visitSSCC[facility] Work Phone: [facility] Work Phone: Start: 11-09-2023 End: 31-40-7878Trkhkceak department patient visitFish Ruiz MD Work Phone: [facility] Emergency MedicineComment on above:Acute midline low back pain without sciatica (Primary Dx)Start: 11-09-2023 End: 69-14-5895Tmtyzipnb department patient visitJarocho Delatorre DO Work Phone: [facility] Emergency MedicineComment on above:Dehiscence of wound of skin, subsequent encounter (Primary Dx); Postoperative painStart: 11-08-2023 End: 11-04-7991Udafak follow up visit related to original Aline Adams MD Work Phone: [facility] PavilionComment on above:Chronic back pain greater than 3 months duration (Primary Dx); Neuropathic pain; Dehiscence of operative wound, subsequent encounterStart: 11-08-2023 End: 35-98-7808sgfjoszozrAPUNXQLU A [facility]: 11-08-2023 End: 48-99-3798Oqnzjjpcox hospital visit by physicianSWoodhull Medical CenterComment on above:Chronic back pain greater than 3 months duration; Neuropathic painStart: 11-08-2023 End: 19-28-1551uwobvtueijWOOSUVHX N WESOLOMercy Health St[facility] Rita[facility] Medical Centertart: 11-06-2023 End: 16-21-4762obpgprsoatNJSGXDF A [facility]art: 11-06-2023 End: 67-05-5792Dpnzxcfov for other preprocedural examinationTHERESA A [facility]tart: 11-05-2023 End: 21-70-3415Mgjqlmrba department patient visitPedro Pablo Fletcher [facility] Start: 10-31-2023 End: 33-31-6446Wgkywmhwq department patient visitElke Adams MD Work Phone: [facility] 4Comment on above:Acute low back pain, unspecified back pain laterality, unspecified whether sciatica present (Primary Dx); Wound dehiscenceStart: 10-30-2023 End: 67-95-7006Ttuqavimo department patient visitMansodebbie Fischer DO Work Phone: [facility] EDComment on above:Infection of superficial incisional surgical site after procedure, initial encounter (Primary Dx)Start: 10-30-2023 End: 56-10-0997Simzrtgzz department patient visitAstrute StarreduardCleveland Clinic Start: 10-26-2023 End: 89-32-2112Ultbohrhj department patient visitPedro Pablo Fletcher [facility] Start: 10-19-2023 End: 76-09-1471Dkxmanini department patient visitSSCCI [facility] Work Phone: [facility] Work Phone: Start: 10-05-2023 End: 32-72-8132Cviheprpw department patient visitRobjoan lEy DO Work Phone: [facility] Emergency MedicineComment on above:Wound infection (Primary Dx)Start: 10-05-2023 End: 28-30-4478Mbxitbosq department patient visitSSCCI [facility] Work Phone: [facility] Work Phone: Start: 10-05-2023 End: 34-13-7096Cupsbtyzx department patient visitSusu Lamar PA-C [facility]: 10-04-2023 End: 63-89-2928Upfwjbiqo department patient visitJorge Mcintosh [facility] Start: 09-26-2023 End: 05-56-6829Qokdnidgg department patient visitMayra HORVATH Facility:[facility]art: 09-25-2023 End: 53-71-4779Xitwomgpw department patient visitAstrute StarrKettering Health [facility] Start: 09-23-2023 End: 41-76-3356Znoozvzeux hospital visit by Car Adams MD Work Phone: [facility] MOS ORComment on above: Acute post-operative pain (Primary Dx); Chronic back pain greater than 3 months duration; Neuropathic painStart: 09-21-2023 End: 19-86-9528Wjulzltho department patient visitNikhil Tubbs [facility] Start: 09-20-2023 End: 20-05-8198Klcstqckn department patient visitJorge Mcintosh [facility] Start: 09-19-2023 End: 38-19-9137Aceajfvud department patient visitNo Generic Provider [facility] Emergency MedicineComment on above:Contusion of sacrum, initial encounter (Primary Dx); Fall, initial encounterStart: 09-17-2023 End: 71-42-2478tnezckjaupUpiqz MukundAdrien LiraFacility:CC Mikytart: 09-17-2023 End: 89-67-1315Qvuxacs encounter procedureDax NgyuenAdrien Pankaj [phone]-DvgzzP[facility] Start: 09-16-2023 End: 07-05-0860Rekecepnq department patient visitNo Generic Provider [facility] Emergency MedicineComment on above:Elbow sprain, right, initial encounter (Primary Dx); Acute exacerbation of chronic low back painStart: 09-11-2023 End: 53-81-7537mzluxduirnKigt M LoganFacility:Behavioral HealthStart: 09-11-2023 End: 27-88-4608Ftxjcxf encounter Bárbara Nguyen [facility] Behavioral Health start: 09-10-2023 End: 88-73-1375Stecifzxr department patient visitSami Radha SLATER Work Phone: [facility] EDComment on above:Strain of lumbar region, initial encounter (Primary Dx)Start: 09-09-2023 End: 06-19-3051Jfqunfnjz department patient visitJomillicent Arnaldo [facility] Start: 09-08-2023 End: 33-11-0745Kxpzdctlb department patient visitServices [place] Work Phone: [facility] Work Phone: Start: 09-06-2023 End: 83-16-3639Tdvitdity department patient visitPedro Pablo Fletcher [facility] Start: 09-02-2023 End: 22-94-0523Ticyehosy department patient visitJomillicent Arnaldo [facility] Start: 08-30-2023 End: 10-07-6289Grwmtqyog department patient visitNikhil Tubbs [facility] Start: 08-27-2023 End: 88-55-6270Htzznv follow up visit related to original Merlin Reynoso HOT BLASTER-WAIVER ANALYST Work Phone: [facility] BolwellComment on above: Chronic back pain greater than 3 months duration (Primary Dx); Neuropathic painStart: 08-21-2023 End: 59-45-8795Twhtjxjame hospital visit by physicianElke Adams MD Work Phone: [facility] Elia ORComment on above: Chronic back pain greater than 3 months duration (Primary Dx); Neuropathic pain; Continuous opioid dependence (Multi)Start: 08-17-2023 End: 11-48-3971Sspqhycmn department patient visitMayra Rosas [facility] Facility:[facility]art: 08-15-2023 End: 02-24-8204Sbpgqdfmb department patient visitAstrit Bridger [facility] Start: 08-14-2023 End: 15-23-3521oovcxixqhaDtaptdgd A. JonesFacility:[facility]ITALtart: 08-14-2023 End: 99-21-1941Gfqj ManagementDomenic Sher [facility] Start: 08-12-2023 End: 77-60-8502Wjnxsfxpc department patient visitElisa Sánchez [facility] Start: 08-09-2023 End: 53-21-4204Vxrkzdiip department patient visitKeke Payne MD Work Phone: [facility] Emergency and Level 1 Trauma CenterStart: 08-07-2023 End: 78-37-5073cdwpmhrzlfXzmj M LoganFacility:Behavioral HealthStart: 08-07-2023 End: 83-39-6934Tyigbjd encounter procedureAshia Mukund [facility] Behavioral Health start: 08-05-2023 End: 49-69-1163Zlbviqnhe department patient visitPedro Pablo Kelly Chance [facility] Start: 08-02-2023 End: 23-46-3945Tokwmwgjz department patient visitNikhil Tubbs [facility] Start: 07-31-2023 End: 23-62-6884Duqyzgwnr department patient visitAstrit Bridger [facility] Start: 07-26-2023 End: 25-13-0555Iovcicvzn department patient visitJorge Mcintosh [facility] Start: 07-20-2023 End: 44-47-8848Glllvwgrg department patient visitNikhil TubbsFacility:[facility] Start: 91-02-3080eurkwvigbvUedwlm HajdariFacility:Behavioral HealthStart: 07-17-2023 End: 57-35-8396xyplyspfgnFmzhkaimy L ClarkFacility:Jacey PCStart: 07-17-2023 End: 02-06-7054Fsqekzp encounter procedureMayra Rosas [phone]-XaanqPike [facility] Start: 07-17-2023 End: 63-72-3833Vmls adult monitoring check doneMayra Rosas [phone]-WdkxmPike [facility] Hospital [facility] Start: 07-15-2023 End: 43-29-2807eveodtxwzbLRJQ NONEFacility:FTMCStart: 07-15-2023 End: 53-30-2669Pyrt Bam Shepherd [facility] Start: 07-14-2023 End: 88-03-2721Irfqbjrjz department patient visitNikhil Tubbs [facility] Start: 69-21-4228inkiphsfvcTcvosaPresbyterian Santa Fe [facility] Center:Kennan PCStart: 07-11-2023 End: 67-90-0828Qivxrsume department patient visitAstrit [facility] Start: 07-08-2023 End: 35-43-0042Teyflsyysyvo consultation with Halie Del Angel PhD Work Phone: Heidi Gu VictorComment on above:Pain disorder associated with psychological and physical factorsStart: 07-08-2023 End: 60-73-5741jedfpcvgqoEVVBRAW W [facility] DaytonStart: 07-06-2023 End: 31-56-1309Yeydfxllf department patient visitAstrit [facility] Start: 07-04-2023 End: 12-98-7456Nuwmreupy department patient visitServices [place] Work Phone: [facility] Work Phone: Start: 06-29-2023 End: 60-66-2845Qddfpwilc department patient visitNikhil Tubbs [facility] Start: 06-27-2023 End: 10-34-4273Mdwfnwliv department patient visitNikhil Tubbs [facility] Start: 06-26-2023 End: 47-88-5376Jydlvswxc department patient visitELIZABETH Ferrell Work Phone: [facility] Work Phone: Start: 06-24-2023 End: 88-46-8876Pnrokoskj department patient visitAstrit [facility] Start: 06-22-2023 End: 36-68-1662lomgjjwjlxFzkd T AMESFacility:FTMCStart: 06-22-2023 End: 73-81-8841Mrjvgiurd department patient visitNikhil Tubbs [facility] Start: 06-22-2023 End: 50-77-6509zlxoyfwxnhAtle T AMESFacility:FTMCStart: 06-15-2023 End: 61-70-7786Gqqfqzrox [facility] Start: 06-15-2023 End: 68-29-3200Zyweozdeq department patient visitSlime Sherwood DO Work Phone: [facility] Emergency MedicineComment on above:Chronic back pain, unspecified back location, unspecified back pain laterality (Primary Dx)Start: 06-11-2023 End: 22-18-3404Lodtekumy department patient visitElisa Sánchez [facility] Start: 06-08-2023 End: 16-89-5829Flujwepxs department patient visitAllyson Griffiths DO Work Phone: [facility] Emergency and Level 1 Trauma CenterStart: 06-05-2023 End: 64-26-0783Fhxsgc outpatient new 45 Javier Adams MD Work Phone: uh [facility] raleigh hospitalComment on above: Chronic back pain greater than 3 months duration (Primary Dx); Neuropathic painStart: 06-03-2023 End: 61-06-8002Zpmwzzlsc department patient visitJorge Mcintosh [facility] Start: 06-01-2023 End: 46-09-4903Vevzxxnrn department patient visitAPRRadha Ferrell Work Phone: [facility] Work Phone: Start: 05-31-2023 End: 99-18-1870Mtkawatfc department patient visitJorge Mcintosh [facility] Start: 05-26-2023 End: 28-87-9820Tzjtgnwrq department patient visitPedro Pablo Fletcher [facility] Start: 05-25-2023 End: 28-95-7651Elfydaglp department patient visitAPRRadha Ferrell Work Phone: [facility] Work Phone: Start: 05-24-2023 End: 76-67-1295Ecawywlau department patient visitNikhil Tubbs [facility] Start: 05-20-2023 End: 51-71-5605Fkyzqi outpatient new 45 minutesEnrique Spivey DO Work Phone: uh [facility] CenterComment on above:CMC arthritis (Primary Dx); Right wrist painStart: 05-19-2023 End: 45-64-0948Qobrflvlo department patient visitPHYSICIAN NO [facility] Work Phone: Start: 05-16-2023 End: 67-33-7654Vvowwslmd department patient visitNikhil Tubbs [facility] Start: 05-15-2023 End: 51-35-7645peapmctzsdNPXVDMLIJ NO [facility] Work Phone: Start: 05-15-2023 End: 71-88-7143Xiaszqc encounter procedurePHYSICIAN NO [facility] Work Phone: Start: 05-14-2023 End: 29-75-5428Ywgpjzdyc department patient visitJomillicent Mcintosh [facility] Start: 05-12-2023 End: 30-53-4345Imzgwfphn department patient visitNikhil Tubbs [facility] Start: 05-11-2023 End: 01-35-1239Amqxxndyp department patient visitJomillicent Mcintosh [facility] Start: 05-08-2023 End: 74-06-6881Ixbqlfxiv department patient visitAstrit Bridger AnnetteC[facility] Start: 05-05-2023 End: 61-15-4292Viguhnfjv department patient visitPHYSICIAN NO [facility] Work Phone: Start: 05-04-2023 End: 33-43-9523Zrfvyiypw department patient visitPedro Pablo FletcherFacility:[facility] Start: 04-30-2023 End: 52-10-6064Veezrcxkg department patient visitJomillicent ParenteFacility:[facility]ENTERtart: 04-27-2023 End: 18-69-2724Fpgplvsvz department patient visitSal Juarez MD Work Phone: [facility] Emergency and Level 1 Trauma CenterStart: 04-26-2023 End: 49-91-4541Lbbqrjpbu department patient visitAstrit [facility]ger [facility] Start: 04-22-2023 End: 60-47-1481Dbcxfaqjw department patient visitPedro Pablo Fletcher [facility] Start: 04-12-2023 End: 57-17-2965Orvlwzocj [facility] Work Phone: Start: 04-11-2023 End: 99-32-1808Cbztyuvff department patient visitAstrute Sparks [facility] Start: 04-10-2023 End: 09-47-8424Amlfmutva department patient visitBrandilauren RauschAdrien Fletcher [facility] Start: 04-05-2023 End: 78-50-2961Krustwmjq department patient visitNikhil Tubbs [facility] Start: 04-02-2023 End: 41-84-9942Rntreyvbv department patient visitElisa Sánchez [facility] Start: 04-01-2023 End: 54-28-4395Aqlobg consultation new/estab patient 62 Tj Joseph MD Work Phone: [facility] CenterComment on above: Continuous opioid dependence (CMS/HCC) (Primary Dx); Chronic hepatitis C without hepatic coma (CMS/HCC)Start: 03-29-2023 End: 62-10-2513Wpvnpkwfa department patient visitELIZABETH Veliz Work Phone: [facility] Work Phone: Start: 03-26-2023 End: 86-83-6180Isjdrkdnl department patient visitJorge Mcintosh [facility] Start: 2023 End: 11-95-6651Agmglnzma department patient visitELIZABETH Veliz Work Phone: [facility] Work Phone: Start: 03-23-2023 End: 48-23-1953Agqcjmgsh department patient visitNikhil Tubbs [facility] start: 03-20-2023 End: 21-12-9428Gxxxohsvu department patient visitBebetomagalis Sánchez [facility] Start: 03-11-2023 End: 71-04-8345Yuqoysksq department patient visitAstrit H [facility] Start: 03-09-2023 End: 51-53-4763Togsurija department patient visitPHYSICIANJALI [facility] Work Phone: Start: 34-39-3762fjpjyoyjrqGxqcfg HamanuelariFacility:HC JailStart: 02-21-2023 End: 87-66-3944Bxkqnyxtt department patient visitServAtrium Health Work Phone: [facility] Work Phone: Start: 02-13-2023 End: 44-91-9379Chxlerbfip hospital visit by Collin Farmer [address] [place], [place] [address]Comment on above:Chronic hepatitis C without hepatic coma (CMS/HCC)Start: 02-12-2023 End: 46-39-6326Kbagfsumy department patient visitNolauren Fletcher [facility] Start: 02-08-2023 End: 89-27-7420Nqehlqpvg department patient visitServices [place] Work Phone: [facility] Work Phone: Start: 02-07-2023 End: 05-46-2570Pzpwhmvnc department patient visitElisa Sánchez [facility] Start: 02-04-2023 End: 19-59-3330Wvgoladbg department patient visitServices [place] Work Phone: [facility] Work Phone: Start: 02-02-2023 End: 18-89-8047Irezlaclt department patient visitServices [place] Work Phone: [facility] Work Phone: Start: 01-29-2023 End: 64-33-0467Oaofgvjdm department patient visitJorge Mcintosh [facility] Start: 01-28-2023 End: 90-47-0856wnirdniylsTaws Braun Other [facility] [employer] Other start: 81-65-4915Azzjratgk encounterDaloretta Torres Referral CoordinatorStart: 01-27-2023 End: 75-16-6197Xfwzclfka department patient visitServices [place] Work Phone: [facility] Work Phone: Start: 01-23-2023 End: 00-36-4428Twvpaigdm department patient visitServices [place] Work Phone: [facility] Work Phone: Start: 01-22-2023 End: 35-74-0684Ydqkoixwf department patient visitAstrit [facility] Start: 01-22-2023 End: 82-94-8771Gqclzc outpatient new 30 minutesJori Harman MD PhD Work Phone: [facility] HospitalComment on above:Chronic low back pain, unspecified back pain laterality, unspecified whether sciatica present (Primary Dx)Start: 01-15-2023 End: 40-04-6760Lmnoql outpatient new 45 minutesAntonio VIEYRAC Work Phone: [facility] Primary CareComment on above:Encounter for screening mammogram for breast cancer (Primary Dx); Recurrent major depressive disorder, in full remission (CMS/HCC); Herniation of intervertebral disc between L4 and L5; Lumbar radiculopathy; Chronic hepatitis C without hepatic coma (CMS/HCC); Chronic, continuous use of opioids; Controlled substance agreement signedStart: 01-14-2023 End: 96-20-0329Dpmbfxnwo department patient visitJorge Mcitnosh [facility] Start: 01-12-2023 End: 37-30-1982Moyzlevgx department patient visitAstrit Bridger [facility] Start: 01-12-2023 End: 12-59-2485Wrhpwgjej department patient visitServices [place] Work Phone: [facility] Work Phone: Start: 01-11-2023 End: 81-01-2288Empugfqme department patient visitServices [facility] Work Phone: [facility] Work Phone: Start: 01-10-2023 End: 38-53-3033bfnyvuvwehRmim Braun Other rtEnd[facility] [employer] Other start: 67-89-2433Btwtkv outpatient visit 15 minutes [facility] NeurosurgeryStart: 01-10-2023 End: 86-05-0216Cafyazzmv department patient visitNikhil Tubbs [facility] Start: 01-07-2023 End: 18-67-9474Nwhzhgonr department patient visitServices Family [facility] Work Phone: [facility] Work Phone: Start: 01-04-2023 End: 39-69-1124Krabkxhwj department patient visitBalbina Sparks AnnetteC[facility] Start: 01-04-2023 End: 77-49-3235Ujtlkwvgg department patient visitServices Family [facility] Work Phone: [facility] Work Phone: Start: 01-02-2023 End: 25-82-8551Mnfoqqdlj department patient visitNikhil Tubbs [facility] Start: 12-28-2022 End: 33-58-3545Qlzakymdc department patient visitServices Family [facility] Work Phone: [facility] Work Phone: Start: 12-28-2022 End: 60-32-6503Ejtmfic encounter procedureServices [place] Work Phone: [facility] Work Phone: Start: 12-27-2022 End: 26-88-5920twbbgfnnptSnwokzm Springer Other [facility] [employer] Other start: 35-89-6475Xkbago outpatient visit 15 minutes Rose Marie [facility] NeurosurgeryStart: 12-26-2022 End: 97-36-7292Mekwhjwfk department patient visitAstrit Bridger AnnetteC[facility] Start: 12-26-2022 End: 59-80-2276gpxbczdajvDhctjq Zaky Other nort [employer] Other Start: 38-36-9928Xzezdn outpatient visit 15 minutes Glen GarzaFPG Pain ManagementStart: 12-24-2022 End: 60-05-4973Mkimrypim department patient visitServices [place] Work Phone: [facility] Work Phone: Start: 12-23-2022 End: 37-44-7122Kayfquefp department patient visitNikhil Tubbs [facility] Start: 12-21-2022 End: 33-46-1769Ckznbdrub department patient visitServices [place] Work Phone: [facility] Work Phone: Start: 12-18-2022 End: 26-90-6400Ccywvwulk department patient visitJorge Arnaldo [facility] Start: 12-14-2022 End: 20-91-0237Kcigvxkdi department patient visitServices Family [facility] Work Phone: [facility] Work Phone: Start: 12-13-2022 End: 27-28-2628Xfyggghxc department patient visitNikhil Tubbs [facility] Start: 12-12-2022 End: 97-76-5113Hevprimlq department patient visitElisa Sánchez [facility] Start: 12-12-2022(PROC) PROCEDURESbelle [facility] Medical OutPtStart: 12-12-2022 End: 90-30-3909Oldhuomek to same day surgery centerServices Family Health Work Phone: [facility]-Digestive Health Work Phone: Start: 12-12-2022 End: 53-09-8612dsynxxaklsLadzuodr Family Health Work Phone: [facility] Work Phone: Start: 12-11-2022 End: 27-18-1387Itoahmivl department patient visitServices Family [facility] Work Phone: [facility] Work Phone: Start: 12-10-2022 End: 54-18-2053Swsoxlqrc department patient visitServices [facility] Work Phone: [facility] Work Phone: Start: 12-09-2022 End: 24-39-0864Zlfrifzfq department patient visitServices [facility] Work Phone: [facility] Work Phone: Start: 12-07-2022 End: 50-26-3385Dyvmctfdu department patient visitTim Avery [facility] Start: 12-07-2022 End: 74-31-6767Exivvmono department patient visitServices Family [facility] Work Phone: [facility] Work Phone: Start: 12-04-2022 End: 91-85-1709Jmxujztdl department patient visitAndkori Griffiths DO Work Phone: [facility] Emergency and Level 1 Trauma CenterStart: 11-29-2022 End: 41-38-4987Qbwxrshrx department patient visitServices Family [facility] Work Phone: [facility] Work Phone: Start: 11-28-2022(PROC) PROCEDURESbelle leonelSelect Medical [facility] Medical OutPtStart: 11-28-2022 End: 18-35-7998Hbafvwnvw to same day surgery centerServices Family Health Work Phone: [facility] Work Phone: Start: 11-28-2022 End: 79-75-2757uewxrekrbvUflnxmll Family Health Work Phone: [facility] Work Phone: Start: 11-19-2022 End: 49-60-6778jwthzvwmckYchtxg Zaky Other [place] [employer] Other Start: 28-76-1589Rtdkon outpatient visit 25 minutes Glen Thomas Pain ManagementStart: 11-18-2022 End: 59-94-2538Eilkkaalu department patient visitServices Family Health Work Phone: [facility] Work Phone: Start: 11-16-2022 End: 89-74-1910Gffteeeyu department patient visitServices Family [facility] Work Phone: [facility] Work Phone: Start: 11-15-2022 End: 91-86-4222Bgbjmcwcu department patient visitServices Family [facility] Work Phone: [facility] Work Phone: Start: 11-12-2022 End: 28-62-4289Dccsembnt department patient visitServices [facility] Work Phone: [facility] Work Phone: Start: 11-11-2022 End: 87-40-2587Lmogejjup department patient visitServices Family Health Work Phone: [facility] Work Phone: Start: 11-08-2022 End: 09-02-4036Pncbaggal department patient visitServices Family [facility] Work Phone: [facility] Room Work Phone: Start: 07-82-1279Tlsytn outpatient visit 15 minutes [facility] NeurosurgeryStart: 11-06-2022 End: 41-47-0180xeaitghwvcPxizxhvj Family Health Work Phone: [facility] Work Phone: Start: 11-06-2022 End: 33-46-2592Revxdyi encounter procedureServices Family Health Work Phone: [facility]-XRay [place] Work Phone: Start: 11-05-2022 End: 30-66-6911Isarrqcij department patient visit RASHAD KENTMER Facility:[id number]: 11-01-2022 End: 97-94-1645Imhxonyuc department patient visitServices Family Health Work Phone: [facility]-Emergency Room Work Phone: Start: 10-31-2022 End: 48-38-9039hrcrtyuebgSnkcvqac Family Health Work Phone: [facility] Work Phone: Start: 10-31-2022 End: 18-51-1498Ilbvbjq encounter procedureServices Family Health Work Phone: [facility]-MRI [place] Work Phone: Start: 10-25-2022 End: 04-39-1003Muqotqbox department patient visitServices Family Health Work Phone: [facility] Work Phone: Start: 10-23-2022 End: 96-84-1016Uhnkafflr department patient visitServices Family Health Work Phone: [facility] Work Phone: Start: 10-16-2022 End: 64-99-0406Ywyfheuqn department patient visitServices Family Health Work Phone: [facility] Work Phone: Start: 10-11-2022 End: 27-92-4311Hyszbyjse department patient visitServices Family Health Work Phone: [facility] Work Phone: Start: 10-07-2022 End: 80-19-4477Gjoqmhlhn department patient visitServices Family Health Work Phone: [facility]-Emergency [facility] Work Phone: Start: 10-04-2022 End: 09-26-4354Lqevpcjax department patient visitServices Family Health Work Phone: [facility] Work Phone: Start: 10-02-2022 End: 18-85-5205Jtjdmuarw department patient visitServices Family Health Work Phone: [facility]-Emergency Room Work Phone: Start: 09-28-2022 End: 23-68-8268Xwyhqzvux department patient visitServices Family Health Work Phone: [facility] Work Phone: Start: 09-26-2022 End: 06-51-4784fwecesydoiIwdosm Zaky Other [employer] Other Start: 97-25-8491Bhmcvi outpatient visit 15 minutes Glen GarzaISAC Pain ManagementStart: 09-24-2022 End: 24-31-9462Namsditdk department patient visitServices Family Health Work Phone: [facility]-Emergency Room Work Phone: Start: 09-22-2022 End: 56-33-9318Fhqdysrkh department patient visitServices Family Health Work Phone: [facility]-Emergency [facility] Work Phone: Start: 09-19-2022(PROC) PROCEDUREStito [facility] OutPtStart: 09-19-2022 End: 37-92-6675Krlwuogul to same day surgery centerServices Family Health Work Phone: [facility]-Digestive Health Work Phone: Start: 09-19-2022 End: 09-34-0444wgvhzpnklqFqcdmmkz Family Health Work Phone: [employer] Other Start: 09-18-2022 End: 19-87-0220Bucnherqg department patient visitServices Family Health Work Phone: [facility]-Emergency Room Work Phone: Start: 09-11-2022 End: 18-53-8590tueznavxjmDkwdvye Shepherd Other [facility] [employer] Other start: 61-34-4523Jrpilhfgq encounterJessica Shepherd [facility] NeurosurgeryStart: 09-11-2022 End: 35-31-7599Zfyzwdcee department patient visitServices Family Health Work Phone: [facility]-Emergency Room Work Phone: Start: 09-10-2022 End: 55-27-7804Llkgcde encounter procedureServices Family [facility] Work Phone: [facility] Work Phone: Start: 09-06-2022 End: 90-45-4319Pwbgqwwook RecurringSerSpotsylvania Regional [facility] Work Phone: [facility]-Physical Therapy [place]Start: 09-05-2022 End: 21-83-2492Jryxwxgzm department patient visitServices Family [facility] Work Phone: [facility]-Emergency Room Work Phone: Start: 09-04-2022 End: 38-13-0558Qpjilpjfl department patient visitNolauren RauschAdrien Fletcher [facility] Start: 09-04-2022 End: 25-09-4106tadhtscjqqGwswqz Zaky Other [facility] [employer] Other Start: 15-91-8956Rggdpz consultation new/estab patient 60 minShertito Thomas Pain ManagementStart: 28-91-4902Dhjtaoalr encounterShertito Thomas Referral CoordinatorStart: 09-01-2022 End: 64-53-6786Fphssdopw department patient visitServices Family [facility] Work Phone: [facility]-Emergency Room Work Phone: Start: 08-31-2022 End: 22-87-7036Ttlmctpsh department patient visitServices Family Health Work Phone: [facility]-Emergency Room Work Phone: Start: 08-27-2022 End: 93-66-0304vodgluscqlTyoirew Springer Other [employer] Other start: 47-43-9690Inoraunif encounterJessAtrium Health [facility] NeurosurgeryStart: 08-26-2022 End: 67-14-9053Geidunuip department patient visitServices Family Health Work Phone: [facility]-Emergency Room Work Phone: Start: 08-21-2022 End: 20-52-0678vmcldhnrdeGwnwydp Springer Other [employer] Other start: 89-41-2219Qtfoyq outpatient new [address] [facility] NeurosurgeryStart: 08-16-2022 End: 60-66-1728Izxzcymte department patient visitServices Family Health Work Phone: [facility]-Emergency Room Work Phone: Start: 08-13-2022 End: 41-96-8310Ucivmhtuk department patient visitServices Family Health Work Phone: [facility]-Emergency Room Work Phone: Start: 08-09-2022 End: 38-93-7196Eodygqa encounter procedureServices Family Health Work Phone: [facility]-XRay [place] Work Phone: Start: 08-06-2022 End: 85-74-6120Ijpgecwhw department patient visitServices Family Health Work Phone: [facility]-Emergency Room Work Phone: Start: 08-02-2022 End: 22-97-5107Wtllmaunt department patient visitServices Family Health Work Phone: [facility]-Emergency Room Work Phone: Start: 06-16-2022 End: 63-60-4792Ggyqrhjdy department patient visitServices Family Health Work Phone: [facility]-Emergency Room Work Phone: Start: 03-30-2022 End: 09-65-0883Kinvjgsjq to same day surgery centerServices Family Health Work Phone: [facility]-Digestive Health Work Phone: Start: 03-22-2022 End: 20-07-3885ffysmgbkklRzftviru McCormack Other [place] [employer] Other Start: 71-62-6793Cejuzmcme encounterLawrdoris Skaggs [facility] GastroenterologyStart: 03-19-2022 End: 85-06-7210Vmxhofhjv department patient visitServices Family [employer] Work Phone: [facility]-Emergency Room Work Phone: Start: 03-17-2022 End: 50-06-7893Rrvlzvbgj department patient visitServices Family Health Work Phone: [facility]-Emergency Room Work Phone: Start: 03-14-2022 End: 83-88-4831Uitdzbcug department patient visitServices Family Health Work Phone: [facility]-Emergency RoomStart: 02-03-2022 End: 88-13-8469Rubfjjnrv department patient visitServices Family Health Work Phone: [facility]-Emergency RoomStart: 01-21-2022 End: 51-17-7494Lnslqlypc department patient visitServices Family Health Work Phone: [facility]-Emergency RoomStart: 01-10-2022 End: 73-31-7840Mxjyxcf encounter procedureMaher SALAM [phone]-[facility]qP[facility] Start: 12-20-2021 End: 94-85-6796dviltmlafsDopilnmv Family Health Work Phone: [facility] Work Phone: Start: 12-20-2021 End: 08-93-0061Aenfwio encounter procedureServices Family [facility] Work Phone: [facility]-XRay Main CampusStart: 11-13-2021 End: 81-56-4296Yscljnyjn department patient visitServices Family Health Work Phone: [facility]-Emergency RoomStart: 10-30-2021 End: 77-47-0449Gmuvynn encounter procedureServices Family [facility] Work Phone: [facility]-Lab Main CampusStart: 10-18-2021 End: 81-83-4905Vwecnbqdb department patient visitServices [place] Work Phone: [facility]-Emergency RoomStart: 10-15-2021 End: 17-42-0251gpfaqrmsdbFQ DOCTOR MISCFacility:H0Grvfn: 10-09-2021 End: 67-76-4226Bhjxdebkw department patient visitServices Family [facility] Work Phone: [facility]-Emergency RoomStart: 09-19-2021 End: 06-79-9305Otxeish encounter procedureServices Family [facility] Work Phone: [facility]-Lab Main CampusStart: 09-13-2021 End: 74-20-4183yodfroyaqhPTAJH PARKERFacility:E3Yalen: 09-13-2021 End: 36-23-5657Xwvjbxuvo department patient visitServices [place] Work Phone: [facility]-Emergency RoomStart: 06-21-2021 End: 55-53-2946Cpj Drop Abbie Romero [facility] Start: 04-18-2021(Procedure) ShortThomas FelterErie [facility] CenterStart: 04-18-2021 End: 13-90-7104fohnsudtznCwzzqh Felter Other [employer] Other Start: 03-30-2021 End: 49-50-9697hfwkuvbgshNerqtx Felter Other [employer] Other Start: 69-31-3122Suqgsj consultation new/estab patient 60 minThomas FelterFPG Pain Management [place]Start: 02-15-2021 End: 84-49-7560wavltdaxgiWzoqao Kira Other [employer] Other Start: 90-42-8625Beiirv outpatient visit 15 minutes Jd Choe OrthopedicsStart: 12-25-2010 End: 17-65-1230Ehaugjr encounter procedureRoss Brock Wadsworth Work Phone: [facility]Start: 20-59-9131Gmexltz OnlyRoss Brock Wadsworth Work Phone: [facility] Procedures DateProcedureProcedure DetailPerforming ClinicianStart: 81-56-3794Ysrcvpwtsn administration: intrathecalJACLYN JUDI Start: 18-08-6933Jybgb count complete Bella Calero DO Work Phone: Start: 67-04-4092Peepech function panelCarlijazmine Tinajero HOT BLASTER - WAIVER ANALYST Work Phone: Start: 06-51-3862Zp lumbar spine w/o contrast material Antonieta C Reyna PA-C Work Phone: Start: 31-73-0487Lmwsfimbgdkla metabolic panelMelody Owens MD Work Phone: Start: 71-88-9452Tei routine ecg w/least 12 lds trcg only w/o i&rBrittvirgil Owens MD Work Phone: Start: 08-97-6971Qklplpmjodc during operationKyey Juan Calero DO Work Phone: Start: 28-07-2400ZX of lumbar spine without contrast Kristan Lau HOT BLASTER Work Phone: Start: 03-48-5188Tbtaf spine lumbosacral 2/3 viewsSoraya Ariza HOT BLASTER - WAIVER ANALYST Work Phone: Start: 31-10-3438Wwccs dip stick/tablet rgnt auto w/o microscopySoraya Ariza HOT BLASTER - WAIVER ANALYST Work Phone: Start: 62-11-6570Nra spinal canal lumbar w/o contrast materialFlex Malave MD Work Phone: Start: 21-45-0253Lt lumbar spine w/o contrast material Flex Malave MD Work Phone: Start: 06-36-8949Oyknq metabolic panel calcium total Flex Malave MD Work Phone: Start: 47-32-9823Mwr spinal canal lumbar w/o & w/contr matrlRmoris Bernard PA-C Work Phone: Start: 29-98-6348Jujbryqbpo microscopic onlyJarocho DUPREE-C Work Phone: Start: 19-68-8597Ehwnx dip stick/tablet rgnt auto w/o microscopyJarocho DUPREE-C Work Phone: Start: 41-77-5526P-reactive proteinRichard J Krupar PA-C Work Phone: Start: 86-68-2006Drujaytenoeyn metabolic panelJarocho Hugo Joana PA-C Work Phone: Start: 48-58-1240Rf lumbar spine w/o contrast material Cameron Dan H[facility] BLASTER [facility] Work Phone: Start: 39-74-2160Btrknxoy tomography of abdomen and pelvis with contrastPHYSICIAN NO FAMILYStart: 45-15-3153Icmnc typing serologic rh (d)Flex Malaev MD Work Phone: Start: 07-06-2024 End: 98-66-0626Kvycgobmobncw metabolic panelFlex Malave MD Work Phone: Start: 01-85-3703Dsy spinal canal lumbar w/o & w/contr Jazz Reyes MD Work Phone: Start: 50-30-5422Cwltxfc quantitative blood xcpt reagent stripIsaac Y Alsallamin Work Phone: Start: 74-27-3054Ygacw metabolic panel calcium total Elif Nilam Ward HOT BLASTER-[facility] Work Phone: Start: 84-55-4864Wgb brain brain stem w/o contrast materialCharmanda Hernandez Leon PA-C Work Phone: Start: 42-49-0397Qapmi test visual color cmprsn methsMaggie L Jeronimo PA-C Work Phone: Start: 07-11-8413Izrkezs bacterial quanttative colony count urineMaggie L Jeronimo PA-C Work Phone: Start: 42-00-0233DMVKF URINE CASTRO TUBEMaggie L Jeronimo PA-C Work Phone: Start: 52-42-9482Rbmedejwuj complete W Reflex Culture panel - UrineMaggie L Jeronimo PA-C Work Phone: Start: 78-54-9096Sdkazdwxre microscopic panel - Urine Qualitative by AutomatedMaggrichy Hernandez PA-C Work Phone: [phone]: 26-70-7187T-reactive proteinLatoya Nilam Ward HOT BLASTER-WAIVER ANALYST Work Phone: Start: 43-97-2091Iiagahbimdhgp metabolic panelMaggrichy Hernandez PA-C Work Phone: Start: 36-66-3980Jmzpq spine lumbosacral 2/3 views Crystal Mukund Lewis PA-C Work Phone: Start: 00-89-6179Gcxin function panelAchong De La Cruz MD Work Phone: Start: 03-70-6872Hqf spinal canal thoracic w/o & w/contr matrlRiley Tami Degroot MD Work Phone: Start: 04-97-4541P-reactive proteinMaggie Degroot MD Work Phone: [phone]: 01-50-3125Cyoqpjjnognmr metabolic panelMaggie Degroot MD Work Phone: [phone]: 34-73-8304Vgfhjwqgszojk metabolic panelMosergio Reza MD Work Phone: [phone]: 93-06-5359Magqomm function panelMosergio Reza MD Work Phone: [phone]: 97-54-4539Ssxux function panelStarr Tran MD Work Phone: [phone]: 78-98-7919H-reactive proteinStarr Tran MD Work Phone: [phone]: 20-30-7444Xvnbcrzncxptl metabolic panelDre Schultz MD Work Phone: Start: 4232Rgyqolbbvb complete W Reflex Culture panel - UrineMora Mandujano MD Work Phone: Start: 85-38-7866Vcudt dip stick/tablet reagent auto microscopyMicstuart Mandujano MD Work Phone: Start: 26-30-2367Ust spinal canal lumbar w/o contrast materialMicstuart Mandujano MD Work Phone: Start: 54-89-8382Hn lumbar spine w/o contrast material Mora Mandujano MD Work Phone: [phone]: 17-27-2683Eqllycpwxremx metabolic panelMora Mandujano MD Work Phone: Start: 61-06-3227Bu lumbar spine w/o contrast material Dalton Grey MD Work Phone: Start: 89-20-3715Zpcxwhyklgnxu metabolic panelEric B Que [employer] Work Phone: Start: 33-22-5171Ebauaegwji complete W Reflex Culture panel - UrineEric Martha rGey MD Work Phone: Start: 57-11-5366Lmqnc dip stick/tablet rgnt auto w/o microscopyEric Martha Grey MD Work Phone: Start: 45-66-8848Vu lumbar spine w/o contrast material Mayra Post PA-C Work Phone: Start: 69-04-5656Mr lumbar spine w/o contrast material Jarocho Delatorre DO Work Phone: Start: 88-57-5901Gg pelvis w/o contrast material Jarocho Delatorre DO Work Phone: Start: 09-62-5384OPSZL OXIMETRY, CONTINUOUSVincent Degeadilene SOTO Work Phone: start: 02-94-5036Vunllxqjizj up to 1 hour physician/qhp timeAbhistc Woodard MD Work Phone: Start: 15-00-4104GQGFS/VERIFY ABORHBrock Agudelo MD Work Phone: start: 93-89-6929Akbug typing serologic rh (d)Brock Agudelo MD Work Phone: start: 06-71-6112Plyio count complete auto&auto difrntl wbcMorgan Amado PA-C Work Phone: Start: 77-63-1300Doeahmgwpnlne metabolic panelMorgan Amado PA-C Work Phone: Start: 44-27-7792Szw spinal canal lumbar w/o contrast materialKatherine Maylino PA-C Work Phone: Start: 35-03-5529Ntnka metabolic panel calcium total Jose Oanh Gallo HOT BLASTER-WAIVER ANALYST Work Phone: Start: 64-82-8637TNVVD TUBESIbrahima Goudiaby DO Work Phone: [phone]: 59-17-6305YULWCQVL TOPIbrahima Goudiaby DO Work Phone: [phone]: 86-85-6648Dgxbs metabolic panel calcium total Jose Hugo Gallo HOT BLASTER-WAIVER ANALYST Work Phone: Start: 63-33-8654Igcpgjeogjumz metabolic panelJoberto Rodgers MD Work Phone: Start: 46-92-4047Wgpko metabolic panel calcium total Shelton Goudiaby DO Work Phone: [phone]: 40-75-6584Hxmvi metabolic panel calcium total Jazmyn Sagastume Mayda HOT BLASTER-WAIVER ANALYST Work Phone: Start: 53-72-1621Nwkoh spine lumbosacral only bending 2/3 viewsAdel Елена SOTO Work Phone: start: 07-56-3928Jixtx metabolic panel calcium total Simon Dominguez MD Work Phone: Start: 70-28-5316Snp spinal canal lumbar w/o & w/contr matrlWinirali Quirozer HOT BLASTER-WAIVER ANALYST Work Phone: Start: 43-79-7413X-reactive proteinWinirali Umanzor Spaner HOT BLASTER-WAIVER ANALYST Work Phone: Start: 70-25-1675Mbjlkqpyndmdk metabolic panelWiosielmukund Lion HOT BLASTER-WAIVER ANALYST Work Phone: Start: 16-51-4349Lj lumbar spine w/o contrast material Francisco J Daley PA-C Work Phone: Start: 97-68-6211Xhv spinal canal cervical w/o & w/contr matrlAbigail Jason DO Work Phone: [phone]: 55-03-8624JWRGM URINE CASTRO Coleen Tellez MD Work Phone: [phone]: 34-05-7546Uavymfzyfg complete W Reflex Culture panel - UrineFatou Tellez MD Work Phone: [phone]: 34-62-6224Xgmlw dip stick/tablet rgnt auto w/o microscopyFatou Tellez MD Work Phone: [phone]: 59-53-2989Z-reactive proteinFatou Tellez MD Work Phone: [phone]: 86-28-1528Rqazjgzlkhnur metabolic panelFatou Tellez MD Work Phone: [phone]: 60-20-0594Mb abdomen & pelvis w/contrast materialLilia Geronimo MD Work Phone: [phone]: 00-62-2905Qw lumbar spine w/contrast material Lilia Geronimo MD Work Phone: [phone]: 42-03-5594Dxwicszlltxyh metabolic panelLilia Geronimo MD Work Phone: [phone]: 14-21-7550Ly head/brain w/o contrast material Roberto Aparicio MD Work Phone: [phone]: 12-12-4129Wvi routine ecg w/least 12 lds trcg only w/o i&Romain Aparicio MD Work Phone: [phone]: 30-79-3619Mibglvgsyy microscopic panel - Urine Qualitative by Grace Aparicio MD Work Phone: Start: 89-59-6342Wstly dip stick/tablet reagent auto microscopyRoberto Aparicio MD Work Phone: Start: 29-82-6211Cjxijhuepb exam chest 2 viewsRoberto Aparicio MD Work Phone: Start: 81-38-4400Lfwyyriksbnml metabolic panelDeclan Laureano MD Work Phone: Start: 81-14-0486Omtxy shoulder complete minimum 2 viewsJarocho Delatorre DO Work Phone: Start: 27-13-4797Sg lumbar spine w/o contrast material Doug Delon PA-C Work Phone: Start: 75-49-5110Jv abdomen & pelvis w/contrast materialMarta Delon PA-C Work Phone: Start: 71-97-8327Vdz routine ecg w/least 12 lds trcg only w/o i&rMarta Sarithaubaev PA-C Work Phone: Start: 50-62-4929Hxgdwyidne exam chest 2 traceyMarta Sarithaubakathie PA-C Work Phone: Start: 97-71-0108Ulbijjyipklyo metabolic panelMaggie Degroot MD Work Phone: Start: 74-82-7302Ugm spinal canal lumbar w/o & w/contr matrlAlexis N Camille PA-C Work Phone: Start: 24-67-4582Al lumbar spine w/contrast material Nighat Bailey PA-C Work Phone: Start: 72-36-9508Wpwqun scan of lower limb veins Services [place] Work Phone: Start: 40-37-2947Oiudtzxv tomography of abdomen and pelvis with contrastServices [place] Work Phone: Start: 73-18-3082Coyikozmhru urinalysisNo PCPStart: 16-82-0111Xbfledtdng bloodBrandon Pepe [facility] Work Phone: [phone]: 49-91-4816Njxz screen quantitative vancomycin Sam Eng PharmD Work Phone: [phone]: 18-90-2537Qzy bact xcpt urine blood/stool aerobic Fredrick Pedroza MD Work Phone: [phone]: 64-61-0097Szpq screen quantitative vancomycin Aaron Kilpatrick MD Work Phone: [phone]: 49-04-1459Tgwlevibos microscopic panel - Urine Qualitative by AutomatedAaron Kilpatrick MD Work Phone: [phone]: 50-78-8312Klxyh dip stick/tablet reagent auto microscopyAaron Kilpatrick MD Work Phone: [phone]: 57-49-2404Sae spinal canal lumbar w/o & w/contr matrlMrogelio Kilpatrick MD Work Phone: [phone]: 13-15-6587Ihe routine ecg w/least 12 lds trcg only w/o i&rMrogelio Kilpatrick MD Work Phone: [phone]: 71-58-2603Hb lumbar spine w/o contrast material Majay Mckeono HOT BLASTER-WAIVER ANALYST Work Phone: [phone]: 74-30-6306Gyore typing serologic rh (d)Aaron Kilpatrick MD Work Phone: [phone]: 63-66-5352Gulnhihaaawb chorionic quantitative Aaron Kilpatrick MD Work Phone: [phone]: 88-33-3327Mkadzdfnfn exam chest single viewAaron Kilpatrick MD Work Phone: [phone]: 47-21-0073IWPMQ TUBESRobjoan Ely DO Work Phone: [phone]: 51-76-7177COS TOPRobert Mukund Ely DO Work Phone: [phone]: 36-15-0768D-reactive proteinFlex Malave MD Work Phone: [phone]: 17-12-3538Ogqabortgtszp metabolic panelSjasper Jessica MD Work Phone: [phone]: 34-79-8949Cmthqed bacterial blood aerobic w/id isolatesDeclan Laureano MD Work Phone: [phone]: 96-35-8413Ifrxa culture for bacteria, including anaerobic screenServices [place] Work Phone: Start: 49-62-0694Pn lumbar spine w/contrast material Jarocho Ryann Delatorre DO Work Phone: Start: 19-70-8946Ownsn metabolic panel calcium total Jarocho Delatorre DO Work Phone: Start: 48-37-6334Z-reactive proteinRichesdras Sagastume Delatorre DO Work Phone: Start: 78-33-3228Bop spinal canal thoracic w/o contrast matrlChirag Reynoso HOT BLASTER-WAIVER ANALYST Work Phone: [phone]: 63-28-9805V-reactive proteinTiff Story MD Work Phone: [phone]: 04-81-9281Grccr function panelTiff Story MD Work Phone: [phone]: 76-38-6216Gzl spinal canal lumbar w/o & w/contr matrlTiff Story MD Work Phone: [phone]: 90-03-3340Cjmblgmvaz exam abdomen 1 view Germaine Solitario DO Work Phone: [phone]: 94-96-0451Qmbpg typing serologic rh (d)Charlette Luciano DO Work Phone: Start: 64-83-3581Hsvupwssgpyrv metabolic panelCharlette Luciano DO Work Phone: [phone]: 06-77-0058Cedxohr bacterial blood aerobic w/id isolatesTiff Story MD Work Phone: [phone]: 72-08-5518QHOWJ URINE CASTRO TUBETiff Story MD Work Phone: [phone]: 11-34-7065Flcgzojqyd complete W Reflex Culture panel - UrineTiff Story MD Work Phone: [phone]: 80-05-3328Lpubbxbinz exam chest single view Tiff Story MD Work Phone: [phone]: 50-27-8605BPOUDUXIhywcynn K Dhanani DO Work Phone: [phone]: 13-29-1514Zjd spinal canal lumbar w/o & w/contr matrlAdrienne C Pontius PA-C Work Phone: Start: 35-50-4392Snigybremx exam abdomen 1 view Gabbi C Pontius PA-C Work Phone: Start: 75-29-4665Gshyn metabolic panel calcium total Gabbi C Pontius PA-C Work Phone: Start: 37-31-7195V-reactive proteinAdrienne C Pontius PA-C Work Phone: Start: 83-72-4064Lyggf culture for bacteria, including anaerobic screenServices [place] Work Phone: Start: 46-90-4447QSNU-CoV-2, Influenza & RSV (PCR) Services [place] Work Phone: Start: 10-10-1685Wkgon chest X-rayServices [place] Work Phone: Start: 06-67-0769V-reactive proteinJet Ortiz MD Work Phone: [phone]: 89-28-6294Hnztpuw bacterial blood aerobic w/id isolatesCovanesa Ortiz MD Work Phone: [phone]: 09-21-5681Alcoy function panelJet Ortiz MD Work Phone: [phone]: 76-36-3295Oicpqqes tomography of abdomen and pelvis with contrastServtanner medical center [facility] [place] [employer] Work Phone: Start: 43-64-0070Jgstv chest X-raySlincoln hospital Ask[employer]ogr [facility] Work Phone: Start: 69-40-4193Hsslldrq identified in Urine by CultureSpromedica bay park hospitalOceansblue Systems Work Phone: Start: 86-21-7899Zqdte culture for bacteria, including anaerobic screenSpromedica bay park hospitalOceansblue Systems Work Phone: Start: 63-78-3767Zjyvg cultureSpromedica bay park hospitalOceansblue Systems Work Phone: Start: 09-00-4196AV tomography Unspecified body region Elke Adams MD Work Phone: start: 08-25-3154Rawes sacrum & coccyx minimum 2 views Germaine Lloyd HOT BLASTER-WAIVER ANALYST Work Phone: Start: 50-44-1251Mdicn elbow complete minimum 3 views Germaine Blair PA-C Work Phone: Start: 16-88-8217NQ tomography Unspecified body region Tiff Story MD Work Phone: start: 27-61-9347TNCYO OXIMETRY, CONTINUOUSGrdylan Walker MD Work Phone: Start: 11-29-1428UCUWY/VERIFY Nehal Adams MD Work Phone: start: 72-08-5599EUCSR OXIMETRY, SPOTBrchris Reynoso HOT BLASTER-WAIVER ANALYST Work Phone: Start: 68-48-3789Jpotvxpe tomography of abdomen and pelvis with contrastELIZABETH Ferrell Work Phone: Start: 79-82-8533Ayyju chest X-rayELIZABETH Ferrell Work Phone: Start: 76-37-9268Ykhihjeteeqife aspir&/inj small jt/bursa w/o usScott Mukund Spivey DO Work Phone: Start: 85-36-3392Tvabw X-ray of left shoulderStart: 21-07-3910Ni abdominal real time w/image Alba Husain PA-C Work Phone: Start: 38-16-9864K-ray of lumbar spine, six views including bending viewsServices [employer] Work Phone: Start: 92-94-1170Lakietjde of spinal epidural space Services [employer] Work Phone: Start: 75-76-4768Y-ray of lumbar spine, four or more viewsServices [employer] Phone: Start: 82-01-2661Mvacugjoh of spinal epidural space Services [employer] Phone: start: 90-22-6519E-ray of lumbar spine, two or three viewsServices [employer] Work Phone: Start: 89-02-8794Mwfys X-ray of left hipServices [employer] Work Phone: Start: 08-58-5087DO lumbar spine wo conServices [employer] Work Phone: Start: 81-16-8912FZ of lumbar spine without contrast Services [employer] Phone: start: 33-03-1685Zaybrvyzp of local anesthetic into sacroiliac jointServices [employer] Work Phone: Start: 98-28-2988B-ray of lumbar spine, four or more viewsServices [employer] Phone: Start: 57-93-7151Nfuf energy X-ray absorptiometry Services [employer] Work Phone: Start: 18-54-2690N-ray of lumbar spine, six views including bending viewsServices [employer] Phone: Start: 03-30-2022 End: 00-37-9256UrjxmbjhduxBiilesjo [employer] Work Phone: Start: 32-15-4840CX of abdomen and pelvis without contrastServices [employer] Phone: Start: 34-30-5088NIPO-CoV-2, Influenza & RSV (PCR) Services [employer] Phone: Start: 07-64-8604Lpirpcrz tomography of abdomen and pelvis with contrastServices [employer] Phone: Start: 75-57-4134Muzqhuvzh for occult blood in feces Services [employer] Phone: Start: 12-61-5123DC of abdomen and pelvis without contrastServices [employer] Phone: Start: 04-97-6029Eotsu cultureSRemedify Phone: Start: 43-62-7381Esdzn X-ray of left shoulderServices [employer] Phone: Start: 09-05-1325Umnzfvkl tomography of abdomen and pelvis with contrastServices [employer] Work Phone: Start: 91-71-2783Mbdhx chest X-rayServices [employer] Phone: Start: 96-82-9524Eaakdkhj tomography of abdomen and pelvis with contrastServices [employer] Phone: Start: 06-88-9264JZDVSORRI SURGICAL PATHOLOGYRoss [facility] Work Phone: Start: 27-05-7926RcsfjntjlxqsEcbcwoxeu Clark History of cholecystectomyLawrence Giles Other History of cholecystectomyElizabecary Rosas HysterectomyNicsoraida Romero HysterectomyEldevonte Rosas lap x 7Nicholas Nick Tonillectomy with adenoidsNicholas iNck Urine cultureServOceansblue Systems Work Phone: Plan of Treatment DateCare ActivityDetailAuthorStart: 37-96-9225HXT patients and/or patients aged 60+ years (1 - 1-dose 60+ series)RSV patients and/or patients aged 60+ years (1 - 1-dose 60+ series)[facility] Start: 82-80-8285Roszjjwmy for malignant neoplasm of colonUnGreen Cross Hospital: 54-42-7726Yxbbeldw ScreeningDiabetes ScreeningKettering Health Main Campustart: 44-20-8460Kooqaf Vaccines (1 of 2)Zoster Vaccines (1 of 2) [facility]: 81-06-9233Qpzuhyim mellitus screening Diabetes ScreeningOhioHealth O'Bleness [facility]: 91-32-4148Tevujwpz mellitus screeningDiabetes ScreeningOhioHealth O'[facility]: 33-58-8729rtztphtshnPjyvqmnqtlZftgzdpr:[facility] ClinicStart: 01-01-2025 End: 05-40-8986Akcurbu encounter fjeeojlwd56/10/2025 1:45 PM EDT Office Visit [facility] [employer] [address] [place] [address] [phone] Declan Batista MD [address] [place] [address] [phone] Video link sentBrandkids Weight Management Thyritope BiosciencesComment on above:Video link sent Start: 12-23-2024 End: 19-40-8187JP Liver limitedUS abdomen limited liver Imaging Routine 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 Hepatic fibrosis, advanced fibrosis Expected: 12/23/2024 (Approximate), Expires: 12/23/2024 [facility] Work Phone: Comment on above:Expected: 12/23/2024 (Approximate), Expires: 12/23/2024Start: 12-02-2024 End: 58-98-0083Esxpomg encounter vxsbyltup97/10/2025 11:15 AM EDT Office Visit [facility] [address] [place] [address] Michel Calero, DO [address] [place] [phone] POST OP - 11/27/24 - PAIN PUMP PERM - MEDTRONIC (REP TO BE AT APPOINTMENT)[facility] ManagementComment on above:POST OP - 11/27/24 - PAIN PUMP PERM - MEDTRONIC (REP TO BE AT APPOINTMENT)Start: 11-27-2024 End: 60-70-7607Sfodlevlt to same day surgery kutxds1311/27/2024 10:00 AM EDT - 11/27/2024 12:36 PM EDT Surgery [facility] [place] [address] [place] [address] Michel Calero, [address] [address] INTRATHECAL PUMP CATHETER PLACEMENT / MEDTRONIC / 40 CC PUMP / 1.5 HOURS / 1 C-ARM / DINORA SITE / GLADYS AND DARIUS CONFIRMEDMLOZ ORComment on above:INTRATHECAL PUMP CATHETER PLACEMENT / MEDTRONIC / 40 CC PUMP / 1.5 HOURS / 1 C-ARM / DINORA SITE / GLADYS AND DARIUS CONFIRMED Start: 53-75-7443Scozqilbww hospital visit by ckehucobr09/05/2025 10:00 AM EDT Hospital Encounter [facility] OR [address] [place] [address] Michel Jenkins, [address] [address] MLOZ ORStart: 11-27-2024 End: 96-86-2730Mlrsxk revj/rpsg ithcl/edrl cath eligibility and occupancy interviewer w/o [facility] HospitalStart: 70-43-3032WXZEH-19 Vaccine ( season)COVID-19 Vaccine ( season)Thom Betancourt [facility] HospitalStart: 72-31-1663EYHMN-19 Vaccines ( season)COVID-19 Vaccines ( season)[facility]: 41-13-9952Emtmrmigp vaccinationJoint Township District Memorial HospitalStart: 90-49-5653Tdvvcibzi vaccinationBon [facility]: 38-15-1438Phlqloc of treatment by patientInfluenza VaccinesPreTriHealth [facility]: 10-20-2024 End: 73-92-4331Bngimeq encounter knaglzgpe15/29/2025 8:30 AM EDT Office Visit [facility] Neurosurgery [address] [place] [phone] Jori Harman MD PhD [address] [address] [facility] NeurosurgeryStart: 10-13-2024 End: 69-20-7183Ebvyuhf encounter iirayszcw27/22/2025 9:15 AM EDT Office Visit [facility] [address] [place] [address] Michel Calero, DO [address] [place], [place] [phone] 10/08/24 PAIN PUMP TRIAL.[facility] Health Pain ManagementComment on above:10/08/24 PAIN PUMP TRIAL.Start: 10-08-2024 End: 18-20-9962Assdfbabo to same day surgery centerMAIMONIDES MEDICAL CENTER ORComment on above: INTRATHECAL PAIN PUMP TRIAL / 1.5 HOURS / 1 C-ARM / DINORA SITE / Intrathecal Pump Trial. 0.1mg/mL ofmorphine and 0.1mg/mL of Bupivacaine in a 5mL syringe.Start: 10-08-2024 End: 81-58-7806Eaa dx/ther sbst intrlmnr lmbr/sac w/img [facility]tart: 60-67-9675Vpzvfzfwkq hospital visit by physicianKVNG ORStart: 10-05-2024 End: 89-51-1739Undzjua encounter /14/2025 10:15 AM EDT Office Visit [facility] [address] [place] [address] Michel Calero DO [address] [place] [address] Return in about 4 weeks (around 10/05/2024) for Medication refill. Consider ITP injection based on discussion with Dr. Beaver .[facility] Health Pain ManagementComment on above:Return in about 4 weeks (around 10/05/2024) for Medication refill. Consider ITP injection based on discussion with Dr. Beaver .Start: 09-16-2024 End: 81-33-7156Mbgakne encounter fjibjdzht07/25/2025 9:15 AM EDT Office Visit [facility] [address] [place] [address] Michel Calero DO [address] [place] [address] Return in about 5 weeks (around 09/07/2024) for Med refill. Waiting for ITP trial .[facility] At UniversityComment on above:Return in about 5 weeks (around 09/07/2024) for Med refill. Waiting for ITP trial .Start: 09-10-2024 End: 13-50-6219Peafbrt encounter aiufufenx60/19/2025 1:00 PM EDT Initial consult [facility] Neurosurgery, a department of [address] [place] [address] Nicole Beaver MD [address] [place] [address] [address] [place] [address] acute exacerbation of chronic low back painSouthern [facility] Medical Center Neurosurgery, a department of [facility] CenterComment on above: acute exacerbation of chronic low back painStart: 07-15-2024 End: 64-48-4229Bcvmdcj encounter eyrbkcywv05/23/2025 3:00 PM EDT Office Visit [facility] [address] [facility] 5th [place] [address] [place] [address] Department [place] [address] [facility] WomenStart: 07-14-2024 End: 58-00-0273Opigfex encounter mqtufkeks23/22/2025 1:30 PM EDT [facility] [address] [place] [address] [place] [address] Department [place] [address] [facility]ierelio ThomasiliHaleytart: 41-03-9113Dhvbgurn tomography of abdomen and pelvis with contrastCT abdomen pelvis w [facility] Hospitaltart: 15-42-3076GR Abdomen and Pelvis W contrast [facility] Start: 06-29-2024 End: 75-71-0867Zfelhha encounter /07/2025 8:00 AM EDT Office Visit [facility] [address] [facility] [address] [place] [address] [place] [address] Department [place] [address] [facility] Cent[facility]art: 06-23-2024 End: 79-23-5795OG Liver [facility] Service Area Work Phone: Comment on above:Expected: 06/23/2024 (Approximate), Expires: 12/23/2024Once for 1 Occurrences starting 06/23/2024 until 06/23/2024 Start: 06-23-2024 End: 17-25-9404Kxzwjaw encounter /01/2025 12:45 PM EDT Appointment [place] [phone] XEBrooklyn Hospital Centertart: 06-23-2024 End: 35-14-4074Wkascuv encounter zxpvazevy18/01/2025 9:30 AM EDT Appointment [facility] [address] [place] [address] RBBrooklyn Hospital Centertart: 06-03-2024 End: 85-93-9388Cxiolne encounter /12/2025 3:30 PM EDT Office Visit [facility] [address] [facility] 5th [place] [address] [place] [address] Department [place] [address] [facility] WomenStart: 06-02-2024 End: 19-66-0633Kgssixi encounter rhskdqerd99/11/2025 9:20 AM EDT Office Visit [facility] Internal Medicine [address] [facility] [address] [place] [address] Marlee Fitzpatrick MD [address] [address] [facility] Internal MedicineStart: 05-14-2024 End: 86-14-2287pcpbaxejij71/20/2025 10:40 AM EST [facility] Family [facility] [address] [place] [address] [phone] Crissy Alaniz DO [address] [place], [place] [phone] To establish a family Krishna [facility] Health NorthComment on above:To establish a family drStart: 05-05-2024 End: 26-66-8194Tswchfj encounter /11/2025 2:00 PM EST Office Visit William Carvalho [address] [place] [address] [address] [place] [phone] [place] [address] Department [place] [address] [facility] PavilionStart: 05-01-2024 End: 64-84-2226Aallbgo encounter tuwjvybob85/07/2025 2:30 PM EST Office Visit [facility]relio Carvalho [address] [place] [address] [place] [address] Department [place] [address] [facility] PavilionStart: 04-27-2024 End: 17-12-5643Cvhlwwu encounter uhienarhj32/03/2025 11:45 AM EST Office Visit [address], [place] [address] Dino Melgoza MD [address] [place] [address] [facility], Bldg 2, [address] [place] [address] [facility]Start: 04-24-2024 End: 91-16-0408Atpukoj encounter ahgphjnhp23/31/2025 1:15 PM EST Office Visit William Javierelio Carvalho [address] [place] [address] [place] [address] Department [place] [address] [facility] PavilionStart: 04-23-2024 End: 07-23-2024 reactive protein [Mass/volume] in Serum or Plasma by High sensitivity methodHIGH SENSITIVITY C-REACTIVE PROTEIN Lab Routine Postoperative seroma of musculoskeletal structure after musculoskeletal procedure Expected: 04/23/2024, Expires: 07/23/2024leveland ClinicComment on above:Expected: 04/23/2024, Expires: 07/23/2024Start: 04-23-2024 End: 27-26-6714LVM W Auto Differential panel - BloodCOMPLETE BLOOD COUNT AND DIFFERENTIAL Lab Routine Postoperative seroma of musculoskeletal structureafter musculoskeletal procedure Expected: 04/23/2024, Expires: 07/23/2024[facility] Work Phone: Comment on above:Expected: 04/23/2024, Expires: 07/23/2024Start: 04-23-2024 End: 86-35-7009Ahvpcnbpair sedimentation rateSEDIMENTATION RATE, WESTERGREN Lab Routine Postoperative seroma of musculoskeletal structure after musculoskeletal procedure Expected: 04/23/2024, Expires: 07/23/2024[facility] HospitalComment on above:Expected: 04/23/2024, Expires: 07/23/2024Start: 03-10-2024 End: 74-65-2065Ehhjkju encounter lsskoiyks82/17/2024 2:15 PM EST Office Visit William Carvalho [address] [facility] [address] [place] [address] [place] [address] [address] [facility] Department [place] [address] William Clemonstart: 03-03-2024 End: 29-53-3377Yytyevy encounter gicdjkpmh91/10/2024 10:00 AM EST Office Visit [facility] [address] [facility] [address] [facility] [address], [place] [address] Iveth Burger, HOT BLASTER-WAIVER ANALYST [address] [place] [address] [facility] HospitalStart: 02-25-2024 End: 32-66-0998Zjaxfdh encounter /03/2024 11:00 AM EST Office Visit [facility] Internal [facility] [address] [phone] Marlee Fitzpatrick MD [address] [address] [facility] Internal MedicineStart: 02-06-2024 End: 87-56-9440Tqnuryrjbx askvwqxkpxgj25/14/2024 1:50 PM EST [place] [address] [place] [address] Sherron Cohen, DARSHANJefferson Hospital ORStart: 02-06-2024 End: 40-09-3379Wihwibkqq to same day surgery [facility] OR Comment on above:DISCECTOMY POSTERIOR LUMBAR LEFT L4-5 MINIMALLY INVASIVE [51607 (CPT )]Start: 02-06-2024 End: 86-24-6225Euryjrsd incl w/dcmprsn nrv root 1 intrspc lumbrVirtual [facility] OR Start: 43-05-7925Tutspxfsta hospital visit by physicianJefferson Hospital ORStart: 02-04-2024 End: 48-93-9654Iikaqdi encounter kwrompggd63/12/2024 3:30 PM EST Office Visit [address] [place] [address] Dino Melgoza MD [address] [place] [address], Mel[address], [address] [place] [address] [facility] HospitalStart: 01-30-2024 End: 30-10-6779Uspauno encounter jozqdhplp66/07/2024 9:00 AM EST Office Visit [address] [place] [address] Iveth Burger, HOT BLASTER-WAIVER ANALYST [address] [place] [address] [facility] HospitalStart: 01-29-2024 End: 34-30-9132Yecfagh encounter mxngoiwrg59/06/2024 12:20 PM EST Office Visit [facility] [address] [facility] [place] [address] Marlee Fitzpatrick MD [address] [facility] 202 [place] [address] [place] [facility] MedicineStart: 01-29-2024 End: 20-62-6656Unhpjppbv to /06/2024 11:00 AM EST Pre-Admission Testing [facility] [address] [place], [id number] [facility]: 01-23-2024 End: 20-29-7665Framasbrg to cfswthllzqwgu56/31/2024 9:30 AM EDT Pre-Admission Testing [facility] [address] [place] [address] [facility] Hospitalt[facility]: 01-21-2024 End: 65-20-4570Ujmwmhs for Pre-Admission Testing VisitRequest for Pre-Admission Testing Visit Procedures Routine Lumbar disc herniation with radiculopathy Expected: 01/21/2024 (Approximate), Expires: 01/20/2025[facility] Service Area Work Phone: Comment on above:Expected: 01/21/2024 (Approximate), Expires: 01/20/2025Start: 01-17-2024 End: 31-27-0058Qdmqbvp encounter wihfnyait52/25/2024 9:20 AM EDT Office Visit [facility] [address] [facility] [address] [place] [address] Marlee Fitzpatrick MD [address] [facility] [address] [place] [address] [facility] MedicineStart: 01-14-2024 End: 48-87-9535Othpdwh encounter mpghgbpuk98/22/2024 1:00 PM EDT Office Visit William Carvalho [address] [facility] [address] [place] [address] [place] [address] Department [place] [address] [facility] PavilionStart: 01-06-2024 End: 17-66-1435Koshctt encounter fegnsdlnd89/14/2024 8:00 AM EDT Office Visit [facility] [place] [facility] [address] [place] [address] [place] [address] [place] [address] [facility] Start: 12-27-2023 End: 52-80-9005Lqxdfag encounter levbrfkzi58/04/2024 2:00 PM EDT Office Visit William Serra Marthaili [address] [facility] [address] [place] [address] [place] [address] Department [place] [address] William Srera PavilionStart: 12-25-2023 End: 37-51-9150Ogbmnony Mtzufbo2312/25/2023 8:30 AM EDT Clinical Support [facility] Internal Medicine [address] [facility] [address] [place] [address] [facility] Internal MedicineStart: 12-24-2023 End: 39-75-8048Ajszadw encounter tnwvvlwoh21/01/2024 10:40 AM EDT Office Visit [facility] 9[address] [facility] [address] [place] [address] [place] [address] Department [place] [address] [facility]: 12-23-2023 End: 59-28-4115Ojptrqi encounter dabwgbsje38/30/2024 10:15 AM EDT Appointment [facility] [address] [place] [address] LZBrooklyn Hospital Centertart: 12-20-2023 End: 57-33-7660Masakuw encounter rmpplatwe41/27/2024 1:00 PM EDT Office Visit William Carvalho [address] [place] [address] [place] [address] Department [place] [address] William Ponce PavilionStart: 12-17-2023 End: 32-23-2495Redtuwrq Kvimrdo1912/17/2023 10:00 AM EDT Clinical Support William Carvalho [address] [place] [address] Stephani Sandhu, [facility] Williamjameson Serra PavilionStart: 12-13-2023 End: 05-73-4650Ngdxpdo encounter fdgjzwuwp06/20/2024 9:30 AM EDT Office Visit William Carvalho [address] [place] [address] [place] [address] Department [place] [address] William Ponce PavilionStart: 52-49-5106Fjtmgq scan of lower limb veinsUS venous duplex LE [facility] Hospitaltart: 67-83-1388CZ Lower extremity vein - rightKettering Health Hamiltontart: 19-13-7522Pwbsfksf tomography of abdomen and pelvis with contrastCT abdomen pelvis w [facility] Hospitaltart: 51-44-7134ID Abdomen and Pelvis W contrast [facility] Hospitaltart: 11-29-2023 End: 27-30-2345Dgxvxhy encounter /06/2024 9:00 AM EDT Office Visit William Carvalho [address] [place] [address] [place] [address] Department [place] [address] [facility] PavilionStart: 12-18-5043Vsgzjvjleblh axial tomography of lumbar spine with contrastLima City Hospitaltart: 70-56-1036RQLFA-19 Vaccine ( season)COVID-19 Vaccine ( season)[facility] HospitalSthealy: 17-07-9422ZBHZB-19 Vaccine ()COVID-19 Vaccine ()[facility]: 08-10-9388MLVDE-19 Vaccines ( season)COVID-19 Vaccines ( season)[facility]Start: 06-20-9949MYGVO-19 Vaccines ( season)COVID-19 Vaccines ( season)[facility] HospitalStart: 15-50-0620Laomhqyga vaccination [facility] HospitalStart: 11-22-2023 End: 38-41-2588Fvzwsv-up bykamnafj87/30/2024 1:00 PM EDT Follow-Up [facility] [address] [place] [address] [place] [address] Department [place] [address] [facility] PavilionStart: 11-21-2023 End: 26-92-0789Kavktfgsr to same day surgery bihssv7211/21/2023 7:30 AM EDT - 11/21/2023 11:30 AM EDT Surgery [facility] [place] [address] [place] [address] [place] [address] Department [place] [address] Thoracic Laminectomy for Spinal Cord Stimulator Leads; Generator Implant [98125 (CPT ) +1 more][facility] ORComment on above:Thoracic Laminectomy for Spinal Cord Stimulator Leads; Generator Implant [38262 (CPT ) +1 more]Start: 11-21-2023 End: 21-15-9734Ogi impltj nstim eltrds plate/paddle edrlInsertion Stimulator Lead Spine Chronic back pain greater than 3 months duration Neuropathic pain 7:30 AM EDTVirtual ARLETTE [place] ORStart: 43-56-3251Gahaaercde hospital visit by revrwpiyp63/29/2024 6:00 AM EDT Hospital Encounter [facility] [place] [address] [place], [place] [place] [address] Department [place] [address] [facility] ORStart: 67-10-9226Pelaskvu identified in Blood by [facility] Hospitaltart: 11-09-2023 End: 13-14-3463TV pain managementFL pain management Imaging Routine Acute midline low back pain without sciatica Expected: 11/09/2023, Expires: 11/08/2024 [facility] Service Area Work Phone: comment on above:Expected: 11/09/2023, Expires: 11/08/2024Start: 11-08-2023 End: 74-15-7168Raamcnw encounter scnfljmew97/16/2024 1:30 PM EDT Office Visit William Carvalho [address] [address] [place] [address] Department [place] [address] Willima Clemonstart: 11-08-2023 End: 68-57-8841Wzxvmip encounter xsydrbafb54/16/2024 7:45 AM EDT Appointment [facility] [address] [place] [address] [facility]: 10-25-2023 End: 16-72-4691Awiyyyw encounter hbvoxuuqp21/02/2024 1:00 PM EDT Office Visit William Serra Maia [address] [facility] [address] [place] [address] [place] [address] Department [place] [address] William Serra MarthailiHaleytart: 61-59-5376AauuxhwxvMountain States Health Alliance Start: 19-94-8079Fqwtega of treatment by Premier HealthStart: 10-19-2023 Bacteria identified in Blood by CultureKettering Health Hamiltontart: 10-08-2023 End: 93-37-7500Pejvpsk encounter zdzzqappx10/16/2024 1:00 PM EDT Office Visit [facility] [address] [facility] 5th [place] [address] Chirag Reynoso, HOT BLASTER-WAIVER ANALYST [address] Department [place] [address] [facility] WomenStart: 10-01-2023 End: 11-81-3047Lxnllbn encounter umucxeoyw86/09/2024 11:00 AM EDT Office Visit [facility] [address] [facility] [address] [place] [address] Michelle Mckeon, HOT BLASTER-WAIVER ANALYST [address] [facility], [address] [place] [address] [facility]: 09-23-2023 End: 06-22-8725Wsgqmezrt to same day surgery uiimoj4309/23/2023 7:15 AM EDT - 09/23/2023 10:45 AM ED[place] [address] [place] [address] [place] [address] Department [place] [address] Percutaneous Thoracic Spinal Cord Stimulator Leads and Generator Placement - [place] [40584 (CPT ) +1 more][facility] ORComment on above:Percutaneous Thoracic Spinal Cord Stimulator Leads and Generator Placement - [place] [29567 (CPT ) +1 more]Start: 09-23-2023 End: 73-57-2574Ayu impltj nstim electrode array epiduralVirtual [facility] OR Start: 20-61-3743Lqcalwiqhh hospital visit by bjnhooeoc89/01/2024 5:45 AM EDT Hospital En[place] [address] [place] [address] [place] [address] Department [place] [address] [facility] ORStart: 08-27-2023 End: 00-73-7428Dkccltd encounter rmooutrvm26/04/2024 1:00 PM EDT Office Visit [facility] [address] [facility] 5th [place] [address] Chirag Reynoso, HOT BLASTER-WAIVER ANALYST [address] Department [place] [address] [facility]: 07-08-2023 End: 92-75-6664Cjtlkyfzniom consultation with ewuqnil5207/08/2023 10:00 AM EDT Telemedicine [facility] [address] 7[address] [place] [id number] [place] [address] [place] [address] [facility]idi Gu CenterStart: 06-05-2023 End: 53-69-1938Nxnjzux encounter qxrswgisz01/13/2024 8:00 AM EDT Office Visit [facility] [address] [facility] 5th [place] [address] [place] [address] Department [place] [address] [facility]: 06-03-2023 End: 03-00-1816Njfgmrd encounter npwtgqytf50/11/2024 8:45 AM EDT Office Visit [address] [address] Enrique Spivey, DO [address] [facility], [address] [place] [address] [facility] CenterStart: 55-80-8154Wrmcyvzha B vaccinationHEP B VACCINE (2 of 3 - 19+ 3-dose series)[facility]: [facility]23 Hepatitis B vaccine (2 of 2 - CpG 2-dose series)Hepatitis B vaccine (2 of 2 - CpG 2-dose series)[facility]: 42-42-7826Lndduubse B Vaccine (2 of 3 - 19+ 3-dose series)Hepatitis B Vaccine (2 of 3 - 19+ 3-dose series) [facility]: 92-41-1012Avmgljfvw B Vaccines (2 of 2 - CpG 2-dose series)Hepatitis B Vaccines (2 of 2 - CpG 2-dose series)[facility] HospitalStart: 05-20-2023 End: 44-22-8210JB Wrist - right [address] [place] [address] Service Area Work Phone: Comment on above:Expected: 05/20/2023, Expires: 05/20/2024Start: 05-08-2023 End: 43-39-0763Zymfzvi encounter zogtiznaj60/14/2024 8:45 AM EST Office Visit [facility] [address] [facility] 5th [place] [address] [place] [address] Department [place] [address] [facility]: 04-30-2023 End: 85-41-9559Ojltafe encounter oqglelwob69/06/2024 11:00 AM EST Office Visit [facility] [address] [address] [place] [address] [address] Department of Medicine-Gastroenterology [place] [id number] [facility]: 04-17-2023 End: 40-80-5370Dnwgucp encounter ecvxwunhc54/24/2024 1:10 PM EST Office Visit [facility] [address] [place] [id number] Antonio Husain PA-C [address] [facility] [place] [address] [facility] IllStart: 04-01-2023 End: 91-77-8290Agvyw 1 antitrypsin [Mass/volume] in Serum or Plasma by NephelometryUnWood County Hospital Work Phone: Comment on above:Expected: 04/01/2023 (Approximate), Expires: 04/01/2024Start: 04-01-2023 End: 18-59-1531Mcxhp-1-Fetoprotein [Mass/volume] in Serum or PlasmaJoint Township District Memorial Hospital Work Phone: Comment on above:Expected: 04/01/2023 (Approximate), Expires: 04/01/2024Start: 04-01-2023 End: 98-19-8271Sipwuutll.direct [Mass/volume] in Serum or PlasmaJoint Township District Memorial Hospital Work Phone: Comment on above:Expected: 04/01/2023 (Approximate), Expires: 04/01/2024Start: 04-01-2023 End: 33-98-6309SUH W Auto Differential panel - BloodJoint Township District Memorial Hospital Work Phone: Comment on above:Expected: 04/01/2023 (Approximate), Expires: 04/01/2024Start: 04-01-2023 End: 08-68-2601Lqosgocpukmcf [Mass/volume] in Serum or PlasmaJoint Township District Memorial Hospital Work Phone: Comgqjb on above:Expected: 04/01/2023 (Approximate), Expires: 04/01/2024Start: 04-01-2023 End: 60-59-6687Hcewaoecvipkt metabolic 2000 panel - Serum or PlasmaUnWood County Hospital Work Phone: Comment on above:Expected: 04/01/2023 (Approximate), Expires: 04/01/2024Start: 04-01-2023 End: 85-72-3313Owyfxerf [Mass/volume] in Serum or PlasmaJoint Township District Memorial Hospital Work Phone: Comjnpu on above:Expected: 04/01/2023 (Approximate), Expires: 04/01/2024Start: 04-01-2023 End: 64-38-5236Mdnamfbuh A virus Ab [Presence] in Serum by ImmunoassayUnWood County Hospital Work Phone: Comment on above:Expected: 04/01/2023 (Approximate), Expires: 04/01/2024Start: 04-01-2023 End: 71-62-3555Kikwwncph B virus core Ab [Presence] in SerumJoint Township District Memorial Hospital Work Phone: Comment on above:Expected: 04/01/2023 (Approximate), Expires: 04/01/2024Start: 04-01-2023 End: 40-97-8214Rfwlxkket B virus surface Ab [Units/volume] in SerumUnWood County Hospital Work Phone: Comment on above:Expected: 04/01/2023 (Approximate), Expires: 04/01/2024Start: 04-01-2023 End: 87-55-0595Haithkyge B virus surface Ag [Presence] in Serum or Plasma by ImmunoassayUnWood County Hospital Work Phone: Comment on above:Expected: 04/01/2023 (Approximate), Expires: 04/01/2024Start: 04-01-2023 End: 17-88-4311Bncbsxrgo C virus RNA panel (viral load) in Serum or Plasma by LINDSEY with probe detectionUnWood County Hospital Work Phone: Comment on above:Expected: 04/01/2023 (Approximate), Expires: 04/01/2024Start: 04-01-2023 End: 04-37-7073YKY 1+2 Ab+HIV1 p24 Ag [Presence] in Serum or Plasma by ImmunoassayUnWood County Hospital Work Phone: Comment on above:Expected: 04/01/2023 (Approximate), Expires: 04/01/2024Start: 04-01-2023 End: 26-62-5325Qvvp and Iron binding capacity panel - Serum or PlasmaUnWood County Hospital Work Phone: Comxcix on above:Expected: 04/01/2023 (Approximate), Expires: 04/01/2024Start: 04-01-2023 End: 34-57-1657Vzjpi Elastography (Fibroscan)Liver Elastography (Fibroscan) GI Routine Chronic hepatitis C without hepatic coma (CMS/HCC) Expected: 04/01/2023 (Approximate), Expires: 04/01/2024[facility] Service Area Work Phone: Comment on above:Expected: 04/01/2023 (Approximate), Expires: 04/01/2024Start: 04-01-2023 End: 55-89-4832Ebppprrosvgg Ab [Presence] in Serum by Immunofluorescence [facility] Work Phone: Comment on above:Expected: 04/01/2023 (Approximate), Expires: 04/01/2024Start: 04-01-2023 End: 38-54-9209Wkewebz Ab [Presence] in Serum by Hep2 [facility] Work Phone: Comment on above:Expected: 04/01/2023 (Approximate), Expires: 04/01/2024Start: 04-01-2023 End: 05-24-1254Kbkfbjogvhoarxzmmwl (PEth), Whole Blood, [facility] Work Phone: Comment on above:Expected: 04/01/2023 (Approximate), Expires: 04/01/2024Start: 04-01-2023 End: 71-41-9875Eoeklrikxal time (PT)[facility] Work Phone: Comment on above:Expected: 04/01/2023 (Approximate), Expires: 04/01/2024Start: 04-01-2023 End: 42-62-2022Ulysho muscle Ab [Presence] in Serum by Immunofluorescence [facility] Work Phone: Comment on above:Expected: 04/01/2023 (Approximate), Expires: 04/01/2024Start: 01-22-2023 End: 32-44-7214KK Lumbar spine Views W flexion and W extensionXR lumbar spine 4+ views w flexion extension Imaging Routine Chronic low back pain, unspecified back pain laterality, unspecified whether sciatica present Expected: 01/22/2023, Expires: 01/23/2024[facility] Service Area Work Phone: comment on above:Expected: 01/22/2023, Expires: 01/23/2024Start: 01-22-2023 End: 85-88-9118Agxpiul encounter okanxitrx68/31/2023 1:30 PM EDT Office Visit [facility] [address] [facility] [address] [place] [address] [place] [address] [facility] [address] [place] [address] [facility]Start: 01-18-2023 End: 10-99-3542Jqomwrz encounter wdiawxppf89/27/2023 9:30 AM EDT Appointment [facility] [address] [place] [address] [facility]: 01-15-2023 End: 63-50-2176NWD Breast - bilateralBI mammo bilateral screening tomosynthesis Imaging Routine Encounter for screening mammogram for breast cancer Expected: 01/15/2023, Expires: 03/17/2024[facility] Service Area Work Phone: Comment on above:Expected: 01/15/2023, Expires: 03/17/2024Start: 01-15-2023 End: 63-67-7355Xfgfq of abuse screen W Reflex confirm panel - UrineUnWood County Hospital Work Phone: Comment on above:Expected: 01/15/2023 (Approximate), Expires: 01/16/2024Start: 01-15-2023 End: 74-32-5514Uzuiskvin C virus Ab [Presence] in SerumHepatitis C Antibody Lab Routine Chronic hepatitis C without hepatic coma (CMS/HCC) Expected: 01/15/2023 (Approximate), Expires: 01/16/2024Un[facility] Work Phone: Comment on above:Expected: 01/15/2023 (Approximate), Expires: 01/16/2024Start: 01-15-2023 End: 61-31-6187Xtpfrisik C virus RNA panel (viral load) in Serum or Plasma by LINDSEY with probe detectionHepatitis C RNA, Quantitative, PCR Lab Routine Chronic hepatitis C without hepatic coma (CMS/HCC) Expected: 01/15/2023 (Approximate), Expires: 01/16/2024UnWood [facility] Work Phone: Comment on above:Expected: 01/15/2023 (Approximate), Expires: 01/16/2024Start: 01-15-2023 End: 80-02-3512QN Liver limitedUS abdomen limited liver Imaging Routine Chronic hepatitis C without hepatic coma (CMS/HCC) Expected: 01/15/2023, Expires: 01/16/2024UnWood [facility] Work Phone: Comment on above:Expected: 01/15/2023, Expires: 01/16/2024Start: 01-19-5937EdwwvnbmfKettering Health Hamiltontart: 11-28-2022 [facility]art: 20-63-8328NMKNN-19 VACCINE ( season)COVID-19 VACCINE ()[facility]Start: 11-23-2022 Influenza vaccinationInfluenza Vaccine (#1)[facility] Start: 40-85-7340N-ray of lumbar spine, two or three viewsXR lumbar spine 2-3V* [facility]art: 82-16-6576IL Lumbar spine 2 or 3 Views [facility]ontart: 94-40-6426Zaeiuuv of treatment by patientINFLUENZA VACCINEPrelima city hospital HealthStart: 35-48-7774QmuaxdreoKettering Health Hamiltontart: 63-46-6884NSUPYPHN SCREENINGDIABETES SCREENINGPreAvita Health SystemStart: 78-23-9741Xdvhu panelLipid ScreeningKettering Health Main Campustart: 62-85-0046Chhuxopfl for malignant neoplasm of colonSENTARA [facility] Start: 66-89-1237Nyypghlm tomography of abdomen and pelvis with contrastCT abdomen pelvis w [facility] Hospitaltart: 11-13-2021 End: 63-54-8218Lscbuhgjp department patient visitDeparted EmergencySuburban [facility]-Emergency RoomStart: 10-30-2021 End: 82-52-0210Ojyxkxq encounter procedureDeparted ClinicalFirelands Regional Medical Ctr-Lab [facility] HospitalStart: 50-17-4247STAKP-19 VACCINE (2 - Booster for Teddy series)COVID-19 VACCINE (2 - Booster for Teddy series)[facility] Start: 67-73-5432FWYLQ-19 Vaccine (2 - Teddy risk series)COVID-19 Vaccine (2 - Teddy risk series)[facility]: 16-79-6946Ykrzoptwz vaccinationINFLUENZA (#1)[facility] Campustart: 30-59-0431Awtni panelLewisGale Hospital Montgomeryart: 35-12-4844JxptluyvtnqNWPEVYLZZMsfgvjlwq ClinicStart: 57-08-7316Kpkcfmhgy for malignant neoplasm of breastOhioHealth O'Bleness Hospital: 12-63-8724Peonhkxk screenDiabetes [facility] Start: 94-81-9450CJC TESTINGHPV TESTINGTogus VA Medical Centerrt: 88-24-8511GEOXCVHX CANCER SCREENINGCERVICAL CANCER SCREENINGOhio State East HospitalStart: 77-16-1948URPEKZ / HPVCOTEST / HPVPreAvita Health SystemStart: 06-23-6210Juznrxqxa for malignant neoplasm of cervixSelect Medical Specialty Hospital - Youngstownart: 20-07-0680APbU/Tdap/Td Vaccines (1 - Tdap) DTaP/Tdap/Td Vaccines (1 - Tdap)[facility]: 16-60-8265Hfvjmvmwybp observation [Identifier] in Cervix by Cyto stainPAP SMEAR [facility]: 94-57-6452TZW TESTINGPAP TESTINGTogus VA Medical Centerrt: 03-11-9287Atajimtdc for malignant neoplasm of cervixOhioHealth O'Bleness Hospital: 56-31-0831MCrJ/Tdap/Td vaccine (1 - Tdap)DTaP/Tdap/Td vaccine (1 - Tdap)[facility]: 86-64-6840WDkA/Tdap/Td VACCINES (1 - Tdap)DTaP/Tdap/Td VACCINES (1 - Tdap)[facility]stownart: 39-81-3178Okojeqvzl A vaccine (1 of 2 - Risk 2-dose series)Hepatitis A vaccine (1 of 2 - Risk 2-dose series)[facility]: 18-84-1068Ohalgpweh A Vaccines (1 of 2 - Risk 2-dose series)Hepatitis A Vaccines (1 of 2 - Risk 2-dose series)[facility]: 27-13-9886APUNJRRBJ B VACCINES (1 of 3 - 19+ 3-dose series)HEPATITIS B VACCINES (1 of 3 - 19+ 3-dose series)[facility]: 83-58-2926Vxlnbuitmfvi 0-49 years Vaccine (1 of 2 - PCV)Pneumococcal 0-49 years Vaccine (1 of 2 - PCV)[facility]: 17-85-1232ACYLGISRTMTQ VACCINE SERIES (1 of 2 - PCV)PNEUMOCOCCAL VACCINE SERIES (1 of 2 - PCV)[facility]: 32-96-8629Exagczmnyscq Vaccine: Pediatrics and At-Risk Adult Patients (1 of 2 - PCV)Pneumococcal Vaccine: Pediatrics and At-Risk Adult Patients (1 of 2 - PCV)[facility]: 1996 Pneumococcal Vaccines: Pediatrics (0 to 5 Years) and At-Risk Patients (6 to 49 Years) (1 of 2 - PCV)Pneumococcal Vaccines: Pediatrics (0 to 5 Years) and At- Risk Patients (6 to 49 Years) (1 of 2 - PCV)[facility]: 29-87-0315Fbtoh diphtheria, tetanus and acellular pertussis (DTaP) vaccinationTDAP (ADULT)[facility]tart: 52-22-2247Awxfe microalbumin profileKettering Health Main Campustart: 50-47-6770Pzmlnrv ScreeningAnxiety ScreeningTogus VA Medical Centerrt: 1995 BREAST CANCER SCREENINGBREAST CANCER SCREENINGSelect Medical Specialty Hospital - Youngstownart: 1995 Depression ScreeningDepression ScreeningKettering Health Main Campustart: 1995 Diabetes mellitus screeningDiabetes ScreeningJoint [facility] Start: 18-52-3633JWSCFKYJO C SCREENINGHEPATITIS C SCREENINGSelect [facility] Specialty Hospital - Youngstownart: 53-01-3565Rdashrnwv C screeningJoint Township District Memorial HospitalStart: 10-11-1894WBX SCREENINGHIV SCREENINGTogus VA Medical Centerrt: 74-74-8698JAD screeningHIV ScreeningTogus VA Medical Centerrt: 97-84-9154Eyodserut for malignant neoplasm of breastBreast Cancer ScreeningPreTriHealth [facility]: 43-28-0690PDN SCREENINGHIV SCREENINGOhio [facility]: 61-35-1444WXN screeningBON [facility]: 18-64-1081Oobbxjwxbv MonitoringDepression MonitoringBon [facility]: 74-77-0128Iohqfibcok ScreenDepression ScreenCentra [facility]: 07-81-2177Jyrcluyzvveu 0-64 years Vaccine (1 of 2 - PCV)Pneumococcal 0-64 years Vaccine (1 of 2 - PCV)[facility]: 75-63-5966OUTZSDXRMZHW VACCINE: Pediatrics (0 to 5 Years) and At-Risk Patients (6 to 64 Years) (1 - PCV)PNEUMOCOCCAL VACCINE: Pediatrics (0 to 5 Years) and At- Risk Patients (6 to 64 Years) (1 - PCV)[facility]: 1983 PNEUMOCOCCAL VACCINE: Pediatrics (0 to 5 Years) and At-Risk Patients (6 to 64 Years) (1 of 2 - PCV)PNEUMOCOCCAL VACCINE: Pediatrics (0 to 5 Years) and At-Risk Patients (6 to 64 Years) (1 of 2 - PCV)[facility]: 1983 Pneumococcal Vaccines: Pediatrics (0 to 5 Years) and At-Risk Patients (6 to 64 Years) (1 of 2 - PCV)Pneumococcal Vaccines: Pediatrics (0 to 5 Years) and At- Risk Patients (6 to 64 Years) (1 of 2 - PCV)[facility]: 1980 ANNUAL PREVENTIVE PHYSICAL (INCLUDES MAAP)ANNUAL PREVENTIVE PHYSICAL (INCLUDES MAAP)[facility]: 52-12-3376WAE Vaccines (1 of 1 - Standard series)MMR Vaccines (1 of 1 - Standard series)[facility]: 57-02-1091GQUNI-19 Vaccine (#1)COVID-19 Vaccine (#1)[facility]: 38-57-5862AnfbpsbpfnjZkqctorwbxfTlxyivf HealthStart: 1977 COLORECTAL CANCER SCREENINGCOLORECTAL CANCER SCREENINGOhio [facility]: 69-72-2448IH ColonographyCT ColonographyPreAvita Health SystemStart: 42-43-9421SZI-DNA (Cologuard)FIT-DNA (Cologuard)[facility] HospitalStart: 22-28-0317OFJU/FITFOBT/FIT [facility]: 96-41-7614UFKHHRIKQ B VACCINES (1 of 3 - 3-dose series) HEPATITIS B VACCINES (1 of 3 - 3-dose series)[facility] HospitalStart: 1977 Hepatitis C screeningHEPATITIS C VIRUS SCREENINGAvita Health Systemtart: 79-57-4380QRL screeningHIV ScreeningOhioHealth O'[facility] Hospital: 91-41-4441Ismnc panelLipid PanelOhioHealth O'Bleness Hospital: 44-09-5512Ppsdwzmst for malignant neoplasm of colonOhioHealth O'B[facility] Hospital: 85-29-4309Egqboye vaccinationTETANUSASelect Medical Specialty Hospital - [facility], Inctart: 06-94-2931Ukhmxo Adult PhysicalYearly Adult PhysicalUnWood County Hospital End: 34-28-9066Gvlvz-1-Fetoprotein [Mass/volume] in Serum or PlasmaAlpha- Fetoprotein Lab Routine 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 Hepatic fibrosis, advanced fibrosis Every 6 months for 2 Occurrences starting 12/24/2023 until 12/23/2024[facility] Work Phone: Comment on above:Every 6 months for 2 Occurrences starting 12/24/2023 until 5Bacteria identified in Blood by CultureBlood Culture Microbiology STAT 10/05/2023 9:48 PM [facility] Service Area Work Phone: bacteria identified in Blood by CultureBlood Culture Microbiology STAT 10/31/2023 5:12 AM EDTJoint [facility] District [facility] Hospital Work Phone: bacteria identified in Urine by CultureC[facility] End: 53-09-0761Gxzooiym identified in Urine by CultureJoint Township District Memorial Hospital Work Phone: Comment on above:Once (Lab) for 1 Occurrences starting 04/24/2024 until 04/24/2024 End: 73-04-9801Qlzyb metabolic 2000 panel - Serum or PlasmaBasic Metabolic Panel Lab Routine Morning draw (Lab) for 3 Occurrences starting 01/04/2024 until , 1 completedJoint [facility] Hospital Work Phone: Comment on above:Morning draw (Lab) for 3 Occurrences starting 01/04/2024 until 01/06/2024, 1 completed End: 39-32-4807Cgrtf metabolic 2000 panel - Serum or PlasmaBasic Metabolic Panel Lab Routine Morning draw (Lab) for 3 Occurrences starting 01/07/2024 until , 2 completedJoint [facility] Hospital Work Phone: Comment on above:Morning draw (Lab) for 3 Occurrences starting 01/07/2024 until 01/09/2024, 2 completed End: 40-28-8811Uuxjqfekw.direct [Mass/volume] in Serum or PlasmaBilirubin, Direct Lab Routine 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 Hepatic fibrosis, advanced fibrosis Every 6 months for 2 Occurrences starting 12/24/2023 until 12/23/2024[facility] Work Phone: Comment on above:Every 6 months for 2 Occurrences starting 12/24/2023 until 12/23/2024 End: 92-65-7003Rdrfr type and Indirect antibody screen panel - BloodType And Screen Lab Timed As needed (Lab) until discontinued starting 02/06/2024 [facility] Work Phone: Comprbt on above:As needed (Lab) until discontinued starting 02/06/2024 End: 46-70-2475RHF panel - Blood by Automated countCBC Lab Routine Morning draw (Lab) for 3 Occurrences starting 01/04/2024 until 01/06/2024, [facility] Work Phone: comment on above:Morning draw (Lab) for 3 Occurrences starting 01/04/2024 until 01/06/2024, 1 completed End: 86-99-5379DBJ panel - Blood by Automated countCBC Lab Routine Morning draw (Lab) for 3 Occurrences starting 11/01/2023 until 11/03/2023, 1 completed [facility] Work Phone: Comzkqm on above:Morning draw (Lab) for 3 Occurrences starting 11/01/2023 until 11/03/2023, 1 completed End: 49-84-5775ERI W Auto Differential panel - BloodCBC and Auto Differential Lab STAT STAT (Lab) for 1 Occurrences starting 06/28/2024 until 06/28/2024[facility] Service Area Work Phone: comment on above:STAT (Lab) for 1 Occurrences starting 06/28/2024 until 5CBC W Auto Differential panel - BloodCBC and Auto Differential Lab STAT 06/28/2024 1:03 AM EDAshtab[facility] Work Phone: End: 38-66-8150Mgzbvgsguuudbnawxx ( test) [Presence] in UrinePOCT , urine Point of Care Testing Routine Once (Lab) for 1 Occurrences starting 02/06/2024 until 02/06/2024[facility] Service [facility] Work Phone: Comment on above:Once (Lab) for 1 Occurrences starting 02/06/2024 until 02/06/2024 End: 27-41-5474Cqqsyowyxzdkww difficile toxin A+B tcdA+tcdB genes [Presence] in Stool by LINDSEY with probe detectionC. difficile, PCR Microbiology Routine Once (Lab) for 1 Occurrences starting 11/13/2023 until 11/13/2023[facility] Work Phone: Comment on above:Once (Lab) for 1 Occurrences starting 11/13/2023 until 11/13/2023 End: 77-80-3108Gorndewacycwt metabolic 2000 panel - Serum or PlasmaComprehensive Metabolic Panel Lab Routine 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 Hepatic fibrosis, advanced fibrosis Every 6 months for 2 Occurrences starting 12/24/2023 until12/23/2024[facility] Work Phone: Comnclt on above:Every 6 months for 2 Occurrences starting 12/24/2023 until 12/23/2024 End: 34-50-0963Ijkbppeuzqyin metabolic 2000 panel - Serum or PlasmaComprehensive metabolic panel Lab STAT STAT (Lab) for 1 Occurrences starting 06/28/2024 until 06/28/2024[facility] Work Phone: Comment on above:STAT (Lab) for 1 Occurrences starting 06/28/2024 until 06/28/2024omprehensive metabolic 2000 panel - Serum or Plasma Comprehensive metabolic panel Lab STAT 06/28/2024 1:03 AM [facility] Work Phone: End: 65-04-0822Fotgauxnqq Pulse oximetry, In Phase 1Continuous Pulse oximetry, In Phase 1 Respiratory Care Routine Continuous until discontinued starting 09/23/2023[facility] Work Phone: Comment on above:Continuous until discontinued starting 09/23/2023 End: 27-95-4853Ynsr Screen, UrineDrug Screen, Urine Lab Add-On Once (Lab) for 1 Occurrences starting 06/12/2024 until 06/12/2024[facility] Work Phone: Comment on above:Once (Lab) for 1 Occurrences starting 06/12/2024 until 06/12/2024 End: 32-49-5045PRF 12 LeadECG 12 Lead ECG STAT Once for 1 Occurrences starting 12/09/2023 until 12/09/2023[facility] Work Phone: Comment on above:Once for 1 Occurrences starting 12/09/2023 until 12/09/2023 End: 27-62-6940VYV [address] [place] [address] Work Phone: Comment on above:Once for 1 Occurrences starting 05/01/2024 until 05/01/2024 End: 74-21-4234MAL [address] [place] [address] Work Phone: Comment on above:Once for 1 Occurrences starting 05/15/2024 until 05/15/2024Electrocardiogram, 12-lead PRN ACS symptoms Electrocardiogram, 12-lead PRN ACS symptoms ECG Routine As needed until discontinued starting 01/01/2024[facility] Work Phone: Comment on above:As needed until discontinued starting 01/01/2024Electrocardiogram, 12-lead PRN ACS symptomsElectrocardiogram, 12-lead PRN ACS symptoms ECG Routine As needed until discontinued starting 01/06/2024 [facility] Work Phone: Comment on above:As needed until discontinued starting 01/06/2024Electrocardiogram, 12-lead PRN ACS symptomsElectrocardiogram, 12-lead PRN ACS symptoms ECG Routine As needed until discontinued starting 01/27/2024 [facility] Work Phone: Comment on above:As needed until discontinued starting 01/27/2024Electrocardiogram, 12-lead PRN ACS symptomsElectrocardiogram, 12-lead PRN ACS symptoms ECG Routine As needed until discontinued starting 10/31/2023 [facility] Work Phone: Comwvcf on above:As needed until discontinued starting 10/31/2023Electrocardiogram, 12-lead PRN ACS symptomsElectrocardiogram, 12-lead PRN ACS symptoms ECG Routine As needed until discontinued starting 11/13/2023 [facility] Work Phone: [phone] on above:As needed until discontinued starting 11/13/2023Electrocardiogram, 12-lead PRN ACS symptomsElectrocardiogram, 12-lead PRN ACS symptoms ECG Routine As needed until discontinued starting 05/16/2024 [facility] Work Phone: Comjftx on above:As needed until discontinued starting 05/16/2024Electrocardiogram, 12-lead PRN ACS symptomsElectrocardiogram, 12-lead PRN ACS symptoms ECG Routine As needed until discontinued starting 06/12/2024 [facility] Work Phone: Comvxkl on above:As needed until discontinued starting 06/12/2024 End: 14-40-6146[facility] Work Phone: comment on above:Once (Lab) for 1 Occurrences starting 12/10/2023 until 12/10/2023 End: 73-16-6680Zvlqv Urine Castro [facility]ube[facility] Urine [facility] Timed Once for 1 Occurrences starting 12/07/2023 until 12/07/2023[facility] Work Phone: Comment on above:Once for 1 Occurrences starting 12/07/2023 until 12/07/2023 End: 59-73-0269Pfsjj Urine Castro [facility] Work Phone: Commlhz on above:Once for 1 Occurrences starting 04/23/2024 until 04/23/2024GeneralGeneral Procedures Routine Acute low back pain, unspecified back pain laterality, unspecified whether sciatica present Wound dehiscence 10/31/2023 2:19 AM [facility] Service Area Work Phone: End: 76-06-3084Asgggvm [Mass/volume] in Serum or PlasmaPOCT Glucose Point of Care Testing Routine One Time for 1 Occurrences starting 10/08/2024 until 09/22on [facility]velstayComment on above:One Time for 1 Occurrences starting 10/08/2024 until 10/08/2024 End: 21-11-0716Eoxntvv [Mass/volume] in Serum or PlasmaPOCT Glucose Point of Care Testing Routine One Time for 1 Occurrences starting 11/27/2024 until on hovelstayComment on above:One Time for 1 Occurrences starting 11/27/2024 until 11/27/2024 End: 09-56-1939Gmbkpsef-- during surgeryBon hovelstayComment on above:Once for 1 Occurrences starting 11/27/2024 until Occurrences starting 11/27/2024 until 11/27/2024 End: 83-90-7884Ysqqhicht spirometry InstructIncentive spirometry Instruct Respiratory Care Routine Once for 1 Occurrences starting 10/31/2023 until 10/31/2023[facility] Service Area Work Phone: comment on above:Once for 1 Occurrences starting 10/31/2023 until 10/31/2023 End: 00-31-1413Slreeuyrj spirometry InstructIncentive spirometry Instruct Respiratory Care Routine Once for 1 Occurrences starting 11/13/2023 until 11/13/2023[facility] Service Area Work Phone: comhgmb on above:Once for 1 Occurrences starting 11/13/2023 until 11/13/2023 End: 00-72-9078KKVCGNGD PACU OXYGEN THERAPY PROTOCOLInitiate PACU Oxygen Therapy Protocol Respiratory Care Routine Continuous until discontinued starting 11/27/2024 [facility] Work Phone: Comment on above:Continuous until discontinued starting 11/27/2024Lamnotmy incl w/dcmprsn nrv root 1 intrspc lumbrDiscectomy Posterior Lumbar Lumbar disc herniation with radiculopathyVirtual GEA OR End: 57-03-5872Todyt Elastography (Fibroscan)Liver Elastography (Fibroscan) GI Routine 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 Hepatic fibrosis, advanced fibrosis 1 Occurrences starting 12/24/2023 until 06/23/2025 [facility] Work Phone: Comment on above:1 Occurrences starting 12/24/2023 until 06/23/2025MR Lumbar spine WO and W contrast IVMRI LUMBAR SPINE W WO CONTRAST Imaging STAT 10/30/2023 9:03 PM [facility] Work Phone: End: 75-91-7103Wxbixd therapy [Minimum Data Set]Initiate Oxygen Therapy Protocol Respiratory Care Routine As Needed until discontinued starting 10/08/2024 [employer] on above:As Needed until discontinued starting 10/08/2024[facility] Work Phone: [facility] referralJ[facility] Work Phone: End: 52-67-0768Cvbiawgtv, UrinePregnancy, Urine Lab Routine One Time for 1 Occurrences starting 10/08/2024 until 10/08/2024on hovelstayComment on above:One Time for 1 Occurrences starting 10/08/2024 until 10/08/2024 End: 84-19-6731Xrtyeltwhxp time (PT)Protime-INR Lab Routine 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 Hepatic fibrosis, advanced fibrosis Every 6 months for 2 Occurrences starting 12/24/2023 until 12/23/2024[facility] Work Phone: Comment on above:Every 6 months for 2 Occurrences starting 12/24/2023 until 12/23/2024 End: 87-39-1214Yodxg function 2000 panel - Serum or PlasmaRenal Function Panel Lab Routine Morning draw (Lab) for 3 Occurrences starting 11/01/2023 until 10/23, 1 [facility] Work Phone: Comment on above:Morning draw (Lab) for 3 Occurrences starting 11/01/2023 until 11/03/2023, 1 completedSpirometry panelIncentive spirometry Respiratory Care Routine Every 2hr while awake until discontinued starting 11/27/2024[facility]:Every 2hr while awake until discontinued starting 11/27/2024 End: 13-46-4714Usyfycryjv complete W Reflex Culture panel - [facility] Service Area Work Phone: comment on above:STAT (Lab) for 1 Occurrences starting 12/07/2023 until 12/07/2023Once for 1 Occurrences starting 12/07/2023 until 12/07/2023 End: 10-86-3409Eqfqmmuwev complete W Reflex Culture panel - [facility] Area Work Phone: comment on above:Once (Lab) for 1 Occurrences starting 04/23/2024 until 04/23/2024 End: 92-54-2674Ikmll Castro [facility] Work Phone: Comment on above:Once for 1 Occurrences starting 12/10/2023 until 12/10/2023 End: 05-08-5411FZ Liver [facility] Service Area Work Phone: Comment on above:Once for 1 Occurrences starting 02/13/2023 until 02/13/2023 End: 93-92-6893HI Liver [facility] Area Work Phone: Comment on above:Once for 1 Occurrences starting 12/23/2023 until 12/23/2023 End: 23-54-0725WH Lumbar spine Views W flexion and W extensionXR LUMBAR MOTION 4V AP/LAT/ FLEX/EXT Radiology Routine Lumbar radiculopathy S/P lumbar discectomy 1Occurrences starting 04/13/2024 until 05/13/2025[facility] Work Phone: Comment on above:1 Occurrences starting 04/13/2024 until 05/13/2025XR Lumbar spine Views W right bending and W left bendingXR SPINE LUMBAR W/ BENDING 6+ VIEWS Imaging Routine Vertebrogenic low back pain 06/20/2024 2:51 PM [facility]: Immunizations Immunization DateImmunizationNotesCare PxsrfcwsTswsaagq39-02-6899nuu vaccine trivalent (PF) (Fluarix/Fluzone/Flulaval) 6 months or greater Arvind Man MD Work Phone: [facility] Work Phone: [phone]bz B vaccine, adult dosageJamie Pankaj [phone]-GlggkP[facility] Fakn42-26-0805 SARS-CoV-2 (COVID-19) Ad26 vaccine, recombinantJamie Pankaj [phone]-OsxqmPike [facility] Care Payers DatePayer CategoryPayerPolicy ID03-01-2025Medicaid (Managed Care)[facility] [id number] 25-75-7012[facility] 1.2.840.327992.1.13.647.2.7.9.074179.578[id number] 1h35eprl-8gb9-6fx3-283b-1n3k1d81qsv278-15-4023Adaq [place] [id number] 2.0.6.761966.84281902-01-2023Medicaid1.2.840.180011.1.13.129.2.7.3.196220.315 02-01-2023Medicaid [employer] 1.2.840.322739.1.13.129.2.7.9.123540.0963.80166-39-3309Ycqmeye 1.2.840.263762.1.13.129.2.7.3.678338.89558-95-7474Skzspsk0565380 2.0.1.876294.3.579.2.96911-67-8086Notjlcp4263213 2..1.407471.3.579.2.55757-43-2801Oovrzmv61220198 2.0.1.679661.3.579.2.755797-35-3991Frhhecp07238763 2.16.840.1.456236.3.579.2.56660-76-9067Vqshifd17338444 2.840.1.132424.3.579.2.08565-51-9533Hxbtkee56170966 2.16840.1.389358.3.579.2.26721-78-8534Wopglvo74930448 2.840.1.490393.3.579.2.45807-64-9250Thiiiwd05583010 2.840.1.493123.3.579.2.66729-47-5030Ppqzdnd36827312 2.0.1.529583.3.579.2.01283-02-3597Txvwijx09417327 2.0.1.738897.3.579.2.80965-97-3248Zfnqaxe12126505 2.0.1.708299.3.579.2.74419-49-4576Afjajaj02004184 2.0.1.801851.3.579.2.55373-43-2494Slkhria44498782 2.840.1.887356.3.579.2.54492-82-1439Xwxfbqn05435934 2.0.1.746106.3.579.2.26778-33-9377Jcbmvpz99739468 2.840.1.904245.3.579.2.00658-41-3941Ngmhmti45004026 2.0.1.016322.3.579.2.261388-78-8374Ozhvbkc99731233 2.840.1.823110.3.579.2.493169-55-4287Habgvxq90394856 2.840.1.270590.3.579.2.725040-68-7589Dcgwnwe90173850 2.16.840.1.092607.3.579.2.44949-86-9450Sagzjhp68573588 2.16840.1.912889.3.579.2.38803-15-7185Rovfnsq66410997 2.840.1.908233.3.579.2.65577-77-3998Iozojht67565155 2.840.1.556204.3.579.2.28905-81-6935Basoevs14333430 2.0.1.342929.3.579.2.61078-81-6239Vtpjooc59423392 2..1.219935.3.579.2.50361-90-0570Irsasmm10390417 2.0.1.304352.3.579.2.51790-04-2483Spwkyaz55221956 2.0.1.811289.3.579.2.92907-17-3946Hhnhrww50626855 2.0.1.144434.3.579.2.39223-34-0363Jsxxnpv82155140 2..1.235982.3.579.2.37459-94-7042Umwhhqb48913678 2.0.1.226130.3.579.2.58553-35-7764Bajhwuk21497420 2.0.1.715028.3.579.2.89166-51-2489Pigcybd02255335 2.840.1.624697.3.579.2.67075-35-6728Mbngdyj28335992 2.840.1.485854.3.579.2.59422-01-3765Rsnclgd94198463 2.840.1.297721.3.579.2.79616-77-3722Ivwtbyi96705169 2.0.1.801613.3.579.2.53969-53-3829Bcozvje31525715 2.840.1.942177.3.579.2.42891-21-2121Hlysuap26835421 2.0.1.067717.3.579.2.50803-36-5557Ygofpng80345511 2.0.1.317574.3.579.2.69900-90-8298Ghzghox40927268 2.0.1.082299.3.579.2.13970-27-6097Bxukwzk78827652 2..1.842224.3.579.2.19173-08-8042Qvjyiah44444479 2..1.455905.3.579.2.60160-00-5544Onuwtqc61500534 2..1.785497.3.579.2.75807-36-3689Etjovxi60519972 2..1.789265.3.579.2.34986-90-2004Ujcrygm15267010 2..1.821977.3.579.2.89155-95-9553Rczsuib87788827 2.0.1.606397.3.579.2.94894-49-7714Mdzzyhx95811046 2..1.376725.3.579.2.21056-66-9359Fvnucvk59120260 2.0.1.249841.3.579.2.47522-69-4159Zmopitm02275961 2.0.1.321143.3.579.2.54784-81-2770Wnmmlsd86144955 2.16840.1.942620.3.579.2.96062-29-1445Jjlgpne83649473 2.16840.1.474069.3.579.2.73402-74-9660Gzwlhwn15228960 2.840.1.818655.3.579.2.59397-41-8817Xikxadl26285293 2.16840.1.423566.3.579.2.53202-75-3431Omjklpz68149709 2.0.1.838828.3.579.2.67788-91-2969Fbbymof80820315 2..1.556243.3.579.2.28648-32-8609Gjqkeek29897392 2.0.1.131464.3.579.2.86228-67-9764Vntannf05099382 2.0.1.136962.3.579.2.70267-57-1224Vfvkugd55977489 2.0.1.928911.3.579.2.40387-41-6304Tgcaxbi83855908 2..1.063450.3.579.2.91582-72-0214Iwmnezn32681702 2.0.1.181204.3.579.2.56850-51-1184Nqcdsdc52885344 2.0.1.493808.3.579.2.13039-19-8020Dgywukj58941589 2.0.1.060895.3.579.2.13047-18-2974Jzagwmb35196182 2.840.1.077597.3.579.2.69574-57-4620Rceqdvv00171240 2.16.840.1.182122.3.579.2.29878-19-1890Tkfuesg29369202 2.16.840.1.022142.3.579.2.45791-93-0427Ikxyfgw65920211 2.16.840.1.072389.3.579.2.55155-09-1492Iskiyji94148851 2.16.840.1.238650.3.579.2.51982-97-7842Yuoltkp22258635 2..840.1.503052.3.579.2.72611-08-3755Mwenhmg53803673 2.840.1.352180.3.579.2.58716-63-2433Uioffjj47756647 2.840.1.650841.3.579.2.80836-91-2224Gmcgwmp02944996 2.840.1.118462.3.579.2.67094-43-9145Zuoecgc61141227 2.0.1.138447.3.579.2.00380-89-3912Nuabnth85439596 2.840.1.474016.3.579.2.15176-83-5431Xzslilj74059021 2.840.1.170016.3.579.2.54965-75-8660Mxqjbif28852576 2.840.1.509509.3.579.2.79271-82-5740Csuelyr45726846 2.840.1.598178.3.579.2.08480-02-1464Tqvkqxw53021384 2..840.1.948654.3.579.2.24000-79-1246Vlgqhne26932449 2.840.1.324681.3.579.2.09503-49-7401Kwibiiq74907087 2.16840.1.515035.3.579.2.05356-43-4098Phzgddo88425324 2.840.1.249004.3.579.2.91924-26-5759Giwuolc98739778 2.840.1.098502.3.579.2.41754-52-6178Fotdaok85343336 2.840.1.422640.3.579.2.37671-92-3578Ediskzv43167047 2.0.1.975445.3.579.2.66204-40-7494Etlkmeh02305262 2.0.1.584997.3.579.2.69057-83-1386Cndduew51214598 2.0.1.255872.3.579.2.41576-43-2824Gmteuai67259519 2.840.1.515498.3.579.2.39952-16-7965Cbvegvc24186355 2.0.1.954311.3.579.2.83732-33-1448Fzhydea25500676 2.0.1.977634.3.579.2.139139-57-0913Zloaczf87808605 2.0.1.403761.3.579.2.577325-77-1953Ivshnnz33326396 2.0.1.342347.3.579.2.403376-04-3259Ehruuje25311691 2.0.1.553329.3.579.2.65112-60-2248Ougvcyh80636033 2.840.1.841369.3.579.2.38038-98-5380Msypsyh17228584 2.16.840.1.374485.3.579.2.54074-87-1959Fdodeby77475806 2.840.1.143991.3.579.2.56840-73-3760Gkmfeoy81521254 2.16840.1.073831.3.579.2.38505-09-9827Lkosypo56490624 2.840.1.001247.3.579.2.11572-46-6207Wrrmquw17319001 2.840.1.246749.3.579.2.23970-31-7059Wkfowxk48718285 2.0.1.717561.3.579.2.69479-43-9397Ggfsedk331226731 2.0.1.832755.3.579.2.360511-86-3745Rjesdzg12240296 2.0.1.619655.3.579.2.81966-67-8754Urnraiv40915634 2..1.535304.3.579.2.55269-21-3952Nibbqqe92368369 2.0.1.246583.3.579.2.87063-59-9732Ubieldg26614435 2.0.1.058371.3.579.2.08002-82-5570Seoppoo28600440 2.840.1.544486.3.579.2.58539-23-4437Psfmnbo91585061 2.0.1.517756.3.579.2.20437-86-4059Bkzjdei55565686 2.840.1.386793.3.579.2.27750-83-0219Cmwyrxd45893233 2.840.1.376557.3.579.2.22875-02-4680Yvjphlo45819552 2.16.840.1.849521.3.579.2.50323-26-4203Johpffu34232174 2.16.840.1.403098.3.579.2.89729-02-4183Vgzqrnq91026134 2.16840.1.347728.3.579.2.15154-60-1220Jpbbdbf54257738 2.16.840.1.872637.3.579.2.45070-17-1133Lojbpua62381255 2.840.1.960024.3.579.2.36632-47-6095Uhvotfo03398557 2.0.1.840232.3.579.2.71110-32-5025Socjmhh02941949 2.840.1.398369.3.579.2.02656-20-0508Mcuqjdh05977405 2.840.1.034314.3.579.2.14567-72-2865Vrwnqri485881234 2.840.1.689557.3.579.2.727253-79-9659Kfvstvj47637526 2.0.1.530966.3.579.2.197983-56-2543Cxnoouv39459857 2.840.1.649628.3.579.2.93722-22-0309Caduwgx25514137 2.840.1.328504.3.579.2.30519-56-7233Ombxqzs54632931 2.16840.1.983256.3.579.2.53309-80-3604Qmmbhoz54788515 2.840.1.021279.3.579.2.79889-34-1910Wdmzond73579879 2.16.840.1.805108.3.579.2.83542-62-0580Obvfpuk37514280 2.840.1.931374.3.579.2.29306-82-7936Oodovbn57783388 2.840.1.529804.3.579.2.12084-30-7609Xuchhkl50994106 2.840.1.852680.3.579.2.69078-13-7052Iezsmpo64277566 2.0.1.298261.3.579.2.09732-42-9718Nrknrxz31410627 2.0.1.445381.3.579.2.68453-18-5542Oclcmsc75304501 2.0.1.431782.3.579.2.92625-94-1052Fxzbwae59092942 2.0.1.146631.3.579.2.14863-31-7612Pmetqft99824957 2.0.1.865657.3.579.2.113562-75-2543Tcmopia28545271 2.0.1.113302.3.579.2.294758-48-3305Xhngbuo69421513 2.0.1.520410.3.579.2.203250-00-7473Hpsjxtc10822088 2.840.1.249453.3.579.2.365708-78-2742Ahyfagz57885818 2.0.1.157843.3.579.2.274090-26-7677Hdfylyl92755065 2.840.1.313294.3.579.2.694900-70-0001Gtlfrpo46505781 2.840.1.461054.3.579.2.859267-27-9111Icqfcjj81306228 2.840.1.124230.3.579.2.191710-02-2402Lhijjbs91855472 2.840.1.178849.3.579.2.305068-12-4310Knhkpcq79694693 2.840.1.044993.3.579.2.925619-39-6022Vedpczp72330549 2.840.1.249687.3.579.2.552233-93-2076Lecudqe64446167 2..1.345084.3.579.2.277433-42-5282Adazzpq16972662 2..1.992913.3.579.2.864345-13-6967Cjpcvdr09118862 2..1.375982.3.579.2.652081-97-7985Tzqfkki27547494 2.0.1.596540.3.579.2.217141-99-5523Wxfmjmx77275792 2..1.488147.3.579.2.983606-64-4942Jllqsfl08764128 2..1.359707.3.579.2.72204-95-0226Onixwbb72473985 2.0.1.141278.3.579.2.09678-24-7838Zzhvnwr77181893 2.0.1.018042.3.579.2.32187-40-1525Xzsqroa86138925 2.840.1.248587.3.579.2.960651-82-3509Luggtaw27669370 2.840.1.257156.3.579.2.317271-08-8934Rdppdwr62326747 2.16.840.1.737879.3.579.2.244818-02-6324Rvldsva83426831 2.16.840.1.821464.3.579.2.636122-67-8213Exgnpve09144260 2.16.840.1.385659.3.579.2.772361-43-4342Ufmjqco33022310 2.840.1.448710.3.579.2.194531-90-3477Xupcjpk76564944 2.840.1.066427.3.579.2.995327-06-6259Obyayuo19490565 2.0.1.323463.3.579.2.158735-77-6387Lmrslrh46131153 2.0.1.400527.3.579.2.757677-64-4705Djfueve89152167 2.0.1.031475.3.579.2.772584-42-8305Ifnnbow95189323 2.0.1.957098.3.579.2.666218-93-3774Zbwfcux67966851 2.840.1.085695.3.579.2.242272-93-8381Oykoiyw80808933 2.0.1.424715.3.579.2.667883-11-3428Zhyaavg99002567 2.0.1.474117.3.579.2.433873-67-0452Kvqgjxi91177790 2.0.1.014873.3.579.2.451831-77-1408Dituitn25281625 2.840.1.960223.3.579.2.750951-57-4661Oaiqbto50697627 2.840.1.552079.3.579.2.884224-45-5391Ienaydx04934935 2.16.840.1.121180.3.579.2.332611-75-1865Gpfwmvl20724483 2.16.840.1.991158.3.579.2.72552-77-9920Zxakdpu78595380 2.16.840.1.194207.3.579.2.56274-14-8842Chqboqk81918138 2.16.840.1.574300.3.579.2.47653-39-4122Zasgcyd07487794 2.16.840.1.201060.3.579.2.49158-58-3244Xxdyamk86608253 2.16.840.1.149201.3.579.2.74790-28-8373Dpfdkof92476233 2.840.1.827196.3.579.2.85155-29-9197Pbnrzsr68760149 2.16.840.1.225324.3.579.2.19422-82-6409Aoyqxwr188314554 2.16.840.1.432553.3.579.2.41714-81-3602Deucpte703216404 2.16.840.1.139226.3.579.2.00156-49-7120Vfjtfsu041212779 2.16.840.1.573225.3.579.2.00817-44-5605Zajrzbu705226540 2.16.840.1.955540.3.579.2.01013-19-7874Ssttyai401260103 2.16.840.1.692935.3.579.2.30257-65-5895Aaxakyr844162975 2.16.840.1.264144.3.579.2.81076-82-8754Dcnxoxv102646360 2.16.840.1.350096.3.579.2.92898-09-7618Vxjtibx819210623 2.840.1.102405.3.579.2.87015-82-4899Mnucigc726427847 2.16840.1.186130.3.579.2.92467-15-6717Xtlfsjf502042718 2.840.1.188214.3.579.2.28265-67-1002Rpqcccu959739295 2.840.1.937717.3.579.2.51105-89-9718Peyuhwm681444308 2.0.1.284050.3.579.2.27338-27-4807Tpeherl912611346 2.0.1.483211.3.579.2.58432-67-0203Pvofbbd521175881 2.0.1.153490.3.579.2.66658-56-6838Gbzfivw293626603 2.840.1.354345.3.579.2.45062-26-5497Nyzqyqb284377299 2.0.1.347977.3.579.2.42776-61-4353Diowtsp011642003 2.0.1.267578.3.579.2.03371-84-2513Gvgrwcj966406983 2.840.1.417670.3.579.2.416005-01-5761Xhoostn864432320 2.840.1.612042.3.579.2.226817-18-6054Bxspcqr549290583 2.840.1.893585.3.579.2.629650-01-9615Cfgqrtt323594921 2.840.1.186044.3.579.2.729759-05-6131Cptcpkm952660535 2.840.1.448997.3.579.2.187151-18-0089Midkkdp649300915 2.0.1.567053.3.579.2.103853-95-2437Bovfibe886514479 2.840.1.093829.3.579.2.699664-14-8512Mzxquur982690991 2.0.1.800084.3.579.2.987516-16-2441Mbkxppy037300427 2.0.1.955498.3.579.2.372948-00-2289Giuunfa852220371 2.0.1.453343.3.579.2.246594-59-0026Mdqbnxl643455382 2.0.1.914188.3.579.2.842302-60-1429Gpstljk749718959 2.0.1.033875.3.579.2.936183-36-2602Utaxlyj063374733 2..1.591214.3.579.2.026390-94-0611Ncluibj42995684 2.0.1.769494.3.579.2.074994-79-5371Yqbeadb00293809 2..1.043721.3.579.2.242299-87-2121Nzgetag54095842 2.0.1.976497.3.579.2.047338-74-2772Fqsdilh61524209 2.0.1.188749.3.579.2.272136-68-9758Majcaqp72978775 2.0.1.877860.3.579.2.797355-04-8562Xgeisfu05373456 2.840.1.219553.3.579.2.69768-34-9758Mbvfqwx67477550 2.16.840.1.830662.3.579.2.50606-39-7664Rbazgyc37068257 2.16.840.1.495510.3.579.2.16712-81-0773Gvskzzz43191637 2.16.840.1.713611.3.579.2.73879-04-3679Ijlcece22169020 2.16.840.1.249849.3.579.2.88794-68-4633Nbssimx20030791 2.840.1.801686.3.579.2.30276-20-7794Mpjpfdq82908759 2.840.1.028768.3.579.2.00116-53-5820Ygezjcm32771701 2.840.1.125067.3.579.2.04783-40-0956Lnpqxow17295864 2.16.840.1.574979.3.579.2.29224-00-5992Vxzabdm65814954 2.840.1.177737.3.579.2.68169-27-7295Bqhbtls21300136 2.840.1.531684.3.579.2.40937-62-1174Kgkzldu82484174 2.840.1.490654.3.579.2.57109-98-3300Chkcupx30542640 2.16840.1.137225.3.579.2.59489-20-7277Nyqgyou48427584 2.16840.1.799021.3.579.2.23170-79-3996Moxzsyo235543786 2.16840.1.145226.3.579.2.42595-88-1084Cpitxry135741616 2.16.840.1.509910.3.579.2.61556-53-8952Bqgcqop791474574 2.16.840.1.779810.3.579.2.97704-94-7015Ifmfoen869822476 2.16.840.1.782104.3.579.2.08016-51-8977Wlyyeie278838305 2.16840.1.311227.3.579.2.59007-03-4240Vpnleru324705930 2.0.1.804903.3.579.2.51745-70-0120Xgufaum407145999 2.840.1.425278.3.579.2.16059-90-7682Hmntmrt938197109 2.840.1.793442.3.579.2.87772-58-7041Igmcxmq252169811 2.840.1.673888.3.579.2.23110-90-0097Lmdssaw684964676 2.0.1.903892.3.579.2.76246-55-1488Xzljezr830280698 2.16840.1.334476.3.579.2.39698-73-5940Puoqhjm14385806 2.840.1.470088.3.579.2.60279-65-8662Hwqomkr24945883 2.16840.1.985718.3.579.2.00732-17-3033Vcmdqmh18530387 2.16840.1.583611.3.579.2.38944-08-8885Lhoqhgl83442825 2.840.1.599499.3.579.2.54517-56-4824Xzotdxt64203914 2.16840.1.130752.3.579.2.65559-40-3264Jcixgkv31235866 2.16.840.1.527060.3.579.2.46835-93-0366Qgfxjhy80124213 2.16.840.1.786748.3.579.2.16609-10-4741Fvulvjt07192838 2.16.840.1.282349.3.579.2.31692-02-2348Ftkpjku74126989 2.16.840.1.014714.3.579.2.43204-57-1428Oxodxdm50003060 2.16.840.1.294295.3.579.2.81582-23-2423Jpblkgx67795178 2.16.840.1.169225.3.579.2.79485-00-7883Temuzln51794787 2.16.840.1.085635.3.579.2.63574-84-9873Zrszrio36690802 2.16840.1.228118.3.579.2.52900-24-2679Aqjfyrx44907846 2.16.840.1.412934.3.579.2.52597-86-3547Mfehmfv79091209 2.16.840.1.741955.3.579.2.12517-63-5474Kynuvsl25417819 2.16.840.1.909435.3.579.2.46955-03-9860Lpdmtnf57268110 2.16.840.1.316141.3.579.2.08083-20-8518Ykiubkn63706848 2.16.840.1.026932.3.579.2.41251-20-3346Wtbypmn29311243 2.16.840.1.870773.3.579.2.93530-05-4739Uamkhnt26130903 2.16.840.1.967170.3.579.2.39284-78-6620Csnwofm79582668 2.16.840.1.820319.3.579.2.94068-72-2954Shvelnp82627360 2.16.840.1.223942.3.579.2.01855-54-7474Ikdtlyw23296119 2.16.840.1.639331.3.579.2.57739-95-8034Hgytyft23693647 2..840.1.981115.3.579.2.42087-31-3013Amvledg85370172 2.840.1.258099.3.579.2.84575-58-6657Eyrrpsy33549273 2.840.1.039164.3.579.2.31568-56-6468Wdrezln97984715 2.16840.1.780692.3.579.2.66044-28-7933Jkscopo04703082 2..840.1.556114.3.579.2.17545-71-3984Ffthlrn91954888 2..840.1.742931.3.579.2.20089-30-5772Jvbwhfh54798279 2.840.1.157731.3.579.2.05734-22-6313Yhubwmt87685999 2.840.1.307333.3.579.2.20608-95-4161Psunnuw09899820 2.16.840.1.079443.3.579.2.71634-04-6538Qvulvij70474603 2.16.840.1.948881.3.579.2.04475-08-9849Jejgges59796277 2.16.840.1.327872.3.579.2.85094-44-6821Ahwliat69645576 2.0.1.719646.3.579.2.85803-24-5537Avprtce64824985 2.840.1.316994.3.579.2.92039-53-5866Zqifxic49473725 2.0.1.974119.3.579.2.64180-36-0297Mpnfuhg20208114 2.0.1.792634.3.579.2.97796-36-4107Tcrflqf03152786 2..1.166584.3.579.2.31888-36-0782Jrwzpfy70725428 2.0.1.268352.3.579.2.27466-72-3345Yjfuxbn30167131 2..1.273441.3.579.2.08079-59-6416Ousrxfl43438628 2..1.850869.3.579.2.72701-01-1960Medicaid224018189703 5202k257-1562-01d0-xo51-e7k09lm4e47f23-53-9703Zfcp-hat 1528a831-7533-491e-a90e-6495b[id number] 5om64u56-6ozk-6e99-5242-17q8vylt7x3mNheytuq Health Qkbzwjgsv001936589 j366we1s-95x2-683g-k928-iia805001yhjKkpcalo Health InsuranceAetna Insurance Co [id number] h6bx8574-v2wu-7c47-v4a2-4jo0921rz4rcWfztkzw518864999883 20.1.639442.96CxtdalzWVJUM06 HRSA Uninsured Igxh098207781 71nylb99-9fy3-0145-570r-55dv731z0imhAfkjxrv79114038 2.16.840.1.923261.3.579.2.931Oztvzxo62782159 2.16840.1.657851.3.579.2.531 Fgrspvp67598818 2.16.840.1.861391.3.579.2.443Yzrozes23096723 2.16840.1.778704.3.579.2.561Wwfyavz30878800 2.840.1.884358.3.579.2.531 Rcxoyey43880877 2.840.1.104892.3.579.2.051Cncmevg58422248 2.840.1.443694.3.579.2.447Geipqzf80472003 2.840.1.492465.3.579.2.531 Bguekzz89046080 2.840.1.233848.3.579.2.311Uwmoyfz24029667 2.840.1.384965.3.579.2.424Kkerdwb84223000 2.840.1.899550.3.579.2.531 Idvlagi58885698 2.840.1.907489.3.579.2.214Htugsqv54356693 2.840.1.096391.3.579.2.103Rzezigd36195419 2.840.1.602685.3.579.2.531 Lrjgvbh58069272 2.840.1.361299.3.579.2.214Grolbyv27152692 2.840.1.823189.3.579.2.454Bivjpbs91471879 2.840.1.304973.3.579.2.531 Elpmlth06200028 2.16.840.1.663746.3.579.2.890Nfrsips62519716 2.16840.1.663404.3.579.2.888Mxqfvxt61402678 2.16.840.1.661346.3.579.2.531 Cmtyuem74468230 2.16840.1.973921.3.579.2.053Adlzumn48553799 2.16840.1.030640.3.579.2.358Hasafrw10176567 2.840.1.035683.3.579.2.531 Mdyfkpe47545897 2.840.1.516811.3.579.2.261Ijwzoel06550803 2.840.1.690773.3.579.2.564Ghrwrfe92315649 2.840.1.361636.3.579.2.531 Tztpbya77792351 2.840.1.726740.3.579.2.498Dxmpxsu14310180 2.840.1.240753.3.579.2.620Ysscmbb25150286 2.840.1.501656.3.579.2.531 Eqjvuqm48727469 2.840.1.488351.3.579.2.932Wqxemlt40608941 2.840.1.023946.3.579.2.970Veidfyh08281841 2.16840.1.003347.3.579.2.531 Nuruqrn55919829 2.16840.1.3[id number] 2.16840.1.3[id number] 2.16.840.1.358559.3.579.2.531 [id number] 2.16.840.1.3[id number] 2.16.840.1.4[id number] 2.16.840.1.338460.3.579.2.246 [id number] 2.16.840.1.9[id number] 2.16.840.1.6[id number] 2.16.840.1.346667.3.579.2.246 [id number] 2.16.840.1.153248.3.579.2.246 Social History DateTypeDetailFacilGlenbeigh Hospital smoking status NHISUnknown if ever smokedKettering Health Main Campustart: 75-22-0288Wbt Assigned At BirthNot on fileDelaware County Hospital Current, Cigarettes, 10 per day.[facility] ClinicComment on above:10 cigs per dayevery day smokerStart: 01-15-2023 End: 47-80-3728Hhd Assigned At [facility] [employer] Other Start: 11-13-2021 End: 48-36-0655Pqamkkb smoking status Kait ([facility] Hamiltontart: 31-06-9319Nbb [facility]igned At [facility] HospitalTobacco smoking statusP[facility] Start: [birth year]1989 End: 96-58-6827Mknwfnn smoking status Bienvenido tobacco dailyPremier Health Start: 84-91-8177Xlgnvhw of tobacco useCigarette SmokerPremier HealthStart: 12-04-2022 End: 32-81-9922Njpkhccfec smoked current (pack per day) - Reported0.5Premier HealthStart: 12-04-2022 End: 64-72-9011Ugogwca use and exposureSmokeless tobacco non-userPremier Health Start: 12-21-2022 End: 77-34-8087Somiena smoking status NHISNever smoked tobacco (finding) [facility] CenterStart: 01-15-2023 End: 85-20-4640Iybhmvo intakeEx-drinker (finding)[facility] Work Phone: Start: 01-05-2023 End: 53-06-2409Obgtsamu to SARS-CoV-2 (event)Not sureJoint Township District Memorial HospitalStart: 01-22-2023 End: 70-35-9726Vmzbtds intakeCurrent drinker of alcohol (finding)[facility] Work Phone: Start: 94-35-8739Yhoqpmt CommentSociallyJoint Township District Memorial Hospital Work Phone: Start: 01-22-2023 End: 81-42-1082Wegdsvn smoking statusHeavy tobacco smoker (finding)[facility] Hospitaltart: 37-28-4051Sypnery smoking statusNeSheltering Arms Hospital Primary CareStart: 05-18-4571Yrymto identityIdentifies as female gender (finding)[facility] Work Phone: Start: 01-31-2014 End: 48-33-5555Btgrgxf intakeCurrent non-drinker of alcohol (finding)BON FactorliHow often to you have a drink containing alcohol?NeverBON Moneysoft [facility]ITALStart: 67-21-9770Xwfm Spouse/Significant OtherWith Spouse/Significant OtherClinton Memorial Hospital CenterStart: 56-82-7394Kqqqa Used Never UsedClinton Memorial Hospital CenterStart: 54-49-592787QtquaoClinton Memorial Hospital CenterStart: 30-98-7097Dhdxfz UseDenies [facility] CenterStart: 27-71-3199GdhrjwlQwgrnlrWadzat County Health CenterStart: 06-13-2018 End: 70-29-0727SvqXnzzoj (finding)[facility] Hospitaltart: 12-24-2023 End: 06-24-3032Gubfdfnbe beverage intakeLifetime non-drinker (finding)[facility] Work Phone: Has the electric, gas, oil, or water company threatened to shut off services in your home in past 12MoNoUnWood County HospitalAre you now , , , , never or living with a partner?SeparatedUnWood County Hospital Work Phone: How hard is it for you to pay for the very basics like food, housing, medical care, and heatingNot very hardUnWood County Hospital Work Phone: Do you feel stress - tense, restless, nervous, or anxious, or unable to sleep at night because yourmind is troubled all the time - these days [OSQ]Not at allUnWood County Hospital Work Phone: (I/We) worried whether (my/our) food would run out before (I/we) got money to buy more.Never trueUnWood County Hospital Work Phone: Start: 95-01-2198Lbpcmlj smoking status NHISTobacco smoking consumption unknownCleSt. Elizabeth HospitalDo you feel stress - tense, restless, nervous, or anxious, or unable to sleep at night because yourmind is troubled all the time - these days [OSQ]Rather muchPromedica Toledo HospitalHow often to you have a drink containing alcohol?Monthly or lessUnWood County Hospital Work Phone: How many standard drinks containing alcohol do you have on a typical day?1 or 2UnWood County Hospital Work Phone: History of tobacco usePassive smokerBon Avenir Behavioral Health Center At SurpriseDrybar [facility] CenterPijon [facility] CenterStart: 13-18-8844Wqhlec orientationChoose not to discloseBon Avenir Behavioral Health Center At SurpriseBitboys Oy [facility] Medical CenterStart: 11-03-2024 End: 80-82-1001Pccpjdd smoking statusLight tobacco smoker (finding)[facility] MilanHow often do you have 6 or more drinks on 1 occasion?Less than monthlyBon SecBethesda North HospitalNEGATED: Highlighted becky [facility] HospitalNEGATED: Highlighted [facility] Medical CenterNEGATED: Highlighted Elyssa [facility] Medical Equipment Procedure CodeEquipment CodeEquipment Original TextEquipment IdentifierDates Lead, Octrode - [id number] - [id number]: 53-68-2264Mdyjxz Implantable Pulse [id number]: 20-51-9340Teuoflu on above: Description: System cost includes: Generator - [id number] Veterans' Coordinator - 70241 Veterans' Coordinator Kit, Lumbar - 57481 Patient Magnet - 1210 Eterna Manual with Virtual Clinic - 17060 Patient Controller - 82982 Lead, Octrode 60cm - [id number] - [id number]: 14-20-3144Okkr, Octrode 60cm - [id number] - [id number]: 33-15-6745Dcnp, Octrode 60cm - [id number] - [id number]: 69-67-2476Mrch Int Thcl Infusion 40 Ml Programmable Ctrl Workflow - [id number]: 11-27-2024 Catheter Ith L86cm Ascenda Spnl Seg - [id number]: 11-27-2024 Goals DatePatient GoalDesired Activity/State Functional Status SfekKmxgqxasidNcndmrFbxsvxzj41-26-7560Rkg you deaf, or do you have serious difficulty hearingNo 01/18/2025 7:42 PM Dejan Heart RN [facility] HospitalIrksod46-14-2944Bke you blind, or do you have serious difficulty seeing, even when wearing glassesNo 01/18/2025 7:42 PM Dejan Heart, RN [facility] HospitalHzuaox45-79-8035Yh you have serious difficulty walking or climbing stairsNo 01/18/2025 7:42 PM Dejan Heart RN [facility] HospitalPhcsko69-77-4123Du you have difficulty dressing or bathingNo 01/18/2025 7:42 PM Dejan Heart RN [facility] HospitalVsgyuu41-47-4389Pexaxsv of a physical, mental, or emotional condition, do you have difficulty doing errands alone such as visiting a physician's office or shoppingNo 01/18/2025 7:42 PM Dejan Heart RN [facility] HospitalHhssoh12-27-8747Sciokafp - suicide severity rating scale screener - recent [C-SSRS][facility] Work Phone: [phone]) [phone]zbsns - suicide severity rating scale screener - recent [C-SSRS][facility] Work Phone: [phone]hkjis StatusN/[facility]04-28-2025Functional StatusN/[facility]04-20-2025 Functional StatusN/[facility]04-13-2025Functional StatusN/A [facility]04-11-2025Functional StatusN/[facility]03-31-2025Functional StatusN/[facility] 17-24-0746Enzqdfarvt StatusN/[facility]03-15-2025Functional statusPremier Uodxma51-80-7900Lhwbyay Tobrsu00-08-2922Bfm you deaf, or do you have serious difficulty hearingNo 06/06/2024 11:58 AM Maddie Mcginnis RN No [facility] HospitalNtblna55-77-1273Yuf you blind, or do you have serious difficulty seeing, even when wearing glassesNo 06/06/2024 11:58 AM Maddie Mcginnis RN No [facility] HospitalDeywae49-72-4529Sn you have serious difficulty walking or climbing stairsNo 06/06/2024 11:58 AM Maddie Mcginnis RN [facility]03-15-2025 Do you have difficulty dressing or bathingNo 06/06/2024 11:58 AM Maddie Mcginnis RN [facility] HospitalIvfvwn82-25-8568Naotlgi of a physical, mental, or emotional condition, do you have difficulty doing errands alone such as visiting a physician's office or shoppingNo 06/06/2024 11:58 AM Maddie Mcginnis RN [facility] HospitalOjuwqb72-04-4071Mrwlvtvaoa StatusN/[facility] 83-62-1432Bwvlgcnohr StatusN/[facility]02-04-2025Functional StatusN/[facility]01-26-2025Functional StatusN/[facility]01-20-2025Functional StatusN/[facility] 24-05-9958Jfiydknnxx StatusN/[facility]01-04-2025Functional StatusNU[facility]01-02-2025Functional StatusNU[facility]12-28-2024Functional Status[facility] 45-33-5633Fufheysojj StatusNU[facility]12-07-2024Functional StatusNU[facility]12-05-2024Functional StatusNU[facility]12-04-2024Functional Status[facility] 26-54-4855Pkmhrztsgd StatusNU[facility]11-28-2024Functional StatusNU[facility]11-24-2024Functional Status[facility]11-22-2024Functional Status[facility] 52-96-0106Mnqbvuhtpz StatusNU[facility]11-02-2024Functional StatusNU[facility]10-31-2024Functional StatusNU[facility]10-22-2024Functional Status[facility] 96-45-8039Ferhvotjhj StatusNUC Medical Center10-11-2024Are you deaf, or do you have serious difficulty hearingNo 01/03/2024 3:34 PM Fozia Hernandez, DARSHAN [facility] Work Phone: [phone] you blind, or do you have serious difficulty seeing, even when wearing glassesNo 01/03/2024 3:34 PM Fozia Hernandez RN [facility] Work Phone: [phone] 686-370910-11-2024Do you have serious difficulty walking or climbing stairsYes 01/03/2024 3:34 PM EDT Fozia Daly RN [facility] Work Phone: 1(267) 916-333810-11-2024Do you have difficulty dressing or bathingNo 01/03/2024 3:34 PM EDT Fozia Daly RN [facility] Work Phone: [phone] of a physical, mental, or emotional condition, do you have difficulty doing errands alone such as visiting a physician's office or shoppingNo 01/03/2024 3:34 PM EDT Fozia Daly RN [facility] Work Phone: [phone]) 367-591310630514-91-5984Eqraohlbeq StatusN/[facility]10-01-2024Functional StatusN/[facility]09-20-2024 Functional StatusN/[facility]09-12-2024Functional StatusN/[facility]09-08-2024Functional StatusN/[facility]09-04-2024Functional StatusN/[facility] 25-06-0253Vubgyggdeq StatusN/[facility]08-13-2024Functional StatusN/[facility]08-07-2024Functional StatusN/[facility]08-03-2024Functional StatusN/[facility] 01-94-7535Zivieouzkh StatusN/[facility]07-03-2024Functional StatusN/[facility]06-29-2024Functional StatusN/[facility]06-28-2024Functional StatusN/[facility] 34-22-3650Fqmoxmrfca StatusN/[facility] Care 32-08-8598Mnjstmmfhp StatusN/[facility]06-14-2024Functional StatusN/[facility]06-10-2024Functional StatusN/[facility]06-07-2024Functional StatusN/[facility] 43-15-5980Xznzqamlxx StatusN/[facility]05-22-2024Functional StatusN/[facility]05-20-2024Functional StatusN/[facility]05-13-2024Functional StatusN/[facility] 04-83-1396Uvwzwoylkb StatusN/[facility]05-08-2024Functional StatusN/[facility]05-03-2024Functional StatusN/[facility]04-24-2024Functional StatusN/[facility] Primary Zpfp49-64-9276Zaedntcjrh StatusNUC Medical Center 65-76-8283Ywfazhwwdm StatusNU[facility] Center04-18-2024Functional StatusNU[facility]04-13-2024Functional StatusN/[facility]04-06-2024Functional StatusN/[facility] 56-71-9063Fcypciiaow StatusNUC Medical Center04-01-2024Functional Status[facility]03-30-2024Functional StatusNU[facility]03-23-2024Functional Status[facility] 35-54-8470Jqteqgeazf StatusNU[facility] Medical Center03-11-2024Functional StatusN/[facility]03-08-2024Functional StatusN/[facility]03-03-2024Functional StatusNU[facility] 91-41-6059Tfswdsdalr StatusNU[facility] Medical Center02-22-2024Functional StatusN/[facility]02-20-2024Functional StatusNU[facility]02-18-2024Functional Status[facility] 54-54-5950Wyvnpvrufv StatusNUC Medical Center02-14-2024Functional StatusN/[facility]02-02-2024Functional StatusN/[facility]01-29-2024Functional StatusN/[facility] 34-05-8122Tgjoigsrto StatusN/[facility]01-17-2024Functional StatusN/[facility]01-12-2024Functional StatusN/[facility]01-09-2024Functional StatusN/[facility] 22-95-5434Xgesuipdss StatusN/[facility]12-30-2023Functional StatusN/[facility]12-27-2023Functional StatusN/[facility]12-18-2023Functional StatusN/[facility] 39-82-7209Itkymyicwp StatusN/[facility]11-16-2023Functional StatusN/[facility]11-07-2023Functional StatusN/[facility]10-31-2023Functional StatusN/[facility] 96-19-2744Tutcppcylm StatusN/[facility]10-21-2023Functional StatusN/[facility]10-19-2023Functional StatusN/[facility]10-13-2023Functional StatusN/[facility] 59-46-2934Xwpagtuzee StatusN/[facility]10-04-2023Functional StatusN/[facility]10-01-2023Functional StatusN/[facility]09-26-2023Functional StatusN/[facility] 90-49-9408Mfhxhpypxn StatusN/[facility]09-20-2023Functional StatusN/[facility]09-15-2023Functional StatusN/[facility]06-13-2023Functional StatusN/[facility] HealthBon Secours Mercy HealthBon Secours Mercy HealthBon Secours Mercy HealthBon Secours Mercy HealthBon Secours Mercy HealthBon Secours Mercy HealthBon Secours Mercy HealthBon Secours Mercy HealthBon Secours Mercy HealthBon Secours Mercy HealthBon Secours Mercy HealthBon Secours Mercy Health Bon Sec[facility] Mercy HealthBon Secours Mercy HealthBon Secours [facility] Health Mental Status LkniKdvpvasefoYhrutpBjldrwgu13-94-2713Bdivpbd of a physical, mental, or emotional condition, do you have serious difficulty concentrating, remembering, or making decisionsNo 01/18/2025 7:42 PM Dejan Heart RN [facility] HospitalWcimzx26-02-6424Ndrglrmmk function findingPreAvita Health SystemUttwse68-74-0403Lbcsxpd of a physical, mental, or emotional condition, do you have serious difficulty concentrating, remembering, or making decisionsNo 06/06/2024 11:58 AM Maddie Mcginnis RN [facility] HospitalIrmigu40-93-6856Biynwby of a physical, mental, or emotional condition, do you have serious difficulty concentrating, remembering, or making decisionsNo 01/03/2024 3:34 PM Fozia Hernandez RN [facility] Work Phone: Clinical Notes 02-15-2021 to 02-03-2025 Note Date & KzvyOoxmLszczfuy86-49-9091 NoteED Patient Education Note Orthopedics Chronic Back [...] them backward. ??? 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 ??? Take [...] body. ? Avoid twisting. Medicines ??? Take cfpn-ysq-adneitp and prescription medicines only as told by [...] your pee (urine) pale yellow. ? Take zyyq-adn-stdhlyp or prescription medicines. ? Eat foods that [...] provider. Document Revised: 10/29/2022 Document Reviewed: 10/29/2022 [employer] Patient Education ? 2023 [employer] Acute Back Pain, Adult Acute back pain is sudden and usually short-lived. It is often caused by an injury to the muscles and tissues in the back. The injury may result from: (more content not included)...[facility]11-09-2025 NoteED Patient Education Note Orthopedics Chronic Back [...] them backward. ??? 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 ??? Take [...] body. ? Avoid twisting. Medicines ??? Take mtqv-ajm-jkfnvgf and prescription medicines only as told by [...] your pee (urine) pale yellow. ? Take tuis-oyp-kgsmzdo or prescription medicines. ? Eat foods that [...] provider. Document Revised: 10/29/2022 Document Reviewed: 10/29/2022 [employer] Patient Education ? 2023 [employer].[facility] 01-31-2025 NoteProgress Note-Nurse pt has ride. pt leaves without waiting for full med hold. understands risks [facility]11-06-2025 Emergency department Note* Mayra Franco - 01/28/2025 4:29 PM EST Patient discharged to home, alert and oriented, skin warm, dry and pink. Denies needs and or questions. Will follow-up as directed, patient encouraged to return for worsening or new symptoms or otherconcerns. [facility] HospitalCogpot19-95-8974 Emergency department Note* Mayra Franco - 01/28/2025 4:29 PM EST Patient discharged to home, alert and oriented, skin warm, dry and pink. Denies needs and or questions. Will follow-up as directed, patient encouraged to return for worsening or new symptoms or otherconcerns. * Roxanne Sadler RN - 01/28/2025 2:54 PM EST Pt ambulates into triage with c/o lower back pain. Pt has hx of chronic back pain. No injury. 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 Return to the emergency room if her symptoms worsen or do not improve. * Attachments The following attachments cannot be sent through Care Everywhere. * Back Pain (Malagasy) documented in this encounterOhio State East HospitalIheize53-39-1434 Emergency department Triage note* Roxanne Sadler RN - 01/28/2025 2:54 PM EST Pt ambulates into triage with c/o lower back pain. Pt has hx of chronic back pain. No injury. States pain 11/01 Pt is visiting from out of town [facility] HospitalLamtlc13-54-3663 NoteED Patient Education Note Orthopedics Managing Chronic Back Pain Chronic back pain is pain that lasts longer than 3 months. It often affects the lower back. It may feel like a muscle ache or a sharp, stabbing pain. It can be mild, moderate, or severe. There are things you can do to help manage your pain. See what works best for you. Your health careprovider may also give you other instructions. What actions can I take to manage my chronic back pain? You may be given a treatment plan by your provider. Treatment often starts with rest and pain relief. It may also include: ??? Physical therapy. These are exercises to help restore movement and strength to your back. ??? Techniques to help you relax. ??? Counseling or therapy. Cognitive behavioral therapy (CBT) is a form of therapy that helps you set goals and make changes. ??? Acupuncture or massage therapy. ??? Local electrical stimulation. ??? Injections. You may be given medicines to numb an area or relieve pain. If other treatments do not help, you may need surgery. How to use body mechanics and posture to help with pain You can help relieve stress on your back with good posture and healthy body mechanics. Body mechanics are all the ways your body moves during the day. Posture is part of body mechanics. Good posture means: ??? Your spine is in its correct S-curve, or neutral, position. ??? Your shoulders are pulled back a bit. ??? Your head is not tipped forward. To improve your posture and body mechanics, follow these guidelines. Standing ??? When standing, keep your feet about hip-width apart. Keep your knees slightly bent. Your ears, shoulders, and hips should line up. Your spine should be neutral. ??? 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 Sitting ??? When sitting, keep your feet flat on the floor. Use a footrest, if needed. Keep your thighs parallel to the floor. Try not to round your shoulders or tilt your head forward. ??? When working at a desk or a computer: ? Position your desk so your hands are a little lower than your elbows. ? Slide your chair under your desk so you are close enough to have good posture. ? Position your monitor so you are looking straight ahead and do not have to tilt your head to viewthe screen. Lifting ??? Keep your feet shoulder-width apart. Tighten the muscles of your abdomen. ??? Bend your knees and hips. Keep your spine neutral. Lift using the strength of your legs, not your back. Do not lock your knees straight out. ??? Ask for help to lift heavy or awkward objects. Resting ??? Do not lie down in a way that causes pain. ??? If you have pain when you sit, bend, stoop, or squat, lie in a way that your body does not bendmuch. Try not to curl up on your side with your arms and knees near your chest ( position). ??? If it hurts to stand for a long time or reach with your arms, lie with your spine neutral and knees bent slightly. Try lying: ? On your side with a pillow between your knees. ? On your back with a pillow under your knees. How to recognize changes in your chronic back pain Let your provider know if your pain gets worse or does not get better with treatment. Your back pain may be getting worse if you have pain that: ??? Starts to cause problems with your posture. ??? Gets worse when you sit, stand, walk, bend, or lift things. ??? Happens when you are active, at rest, or both. ??? Makes it hard for you to move around (limits mobility). ??? Occurs with fever, weight loss, or trouble peeing (urinating). ??? Causes numbness and tingling. Follow these instructions at home: Medicines ??? You may need to take medicines for pain and inflammation. These may be taken by mouth or put onthe skin. You may also be given muscle relaxants. ??? Take pazc-ryt-eozfqdh and prescription medicines only as told by your provider. ??? Ask your provider if the medicine prescribed to you: ? Requires you to avoid driving or using machinery. ? Can cause constipation. You may need to take these actions to prevent or treat constipation: ? Drink enough fluid to keep your pee (urine) pale yellow. ? Take kflj-prs-aeqtfxm or prescription medicines. ? Eat foods that are high in fiber, such as beans, whole grains, and fresh fruits and vegetables. ? Limit foods that are high in fat and processed sugars, such as fried or sweet foods. Lifestyle ??? Do not use any products that contain nicotine or tobacco. These products include cigarettes, chewing tobacco, and vaping devices, such as e-cigarettes. If you need help quitting, ask your provider. ??? Eat a healthy diet. Eat lots of vegetables, fruits, fish, and lean meats. ??? Work with your provider to stay at a healthy weight. [employer] (more content not included)...[facility]11-04-2025 Note ED Patient Education Note Orthopedics Chronic Back Pain [...] them backward. ??? 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 ??? Take [...] body. ? Avoid twisting. Medicines ??? Take ooqc-tjc-xwgkiex and prescription medicines only as told by [...] your pee (urine) pale yellow. ? Take dxis-ycg-apyljol or prescription medicines. ? Eat foods that [...] provider. Document Revised: 10/29/2022 Document Reviewed: 10/29/2022 [employer] Patient Education ? 2023 [employer] 01-24-2025 NoteED Patient Education Note Infectious Disease Upper Respiratory Infection, Adult An upper respiratory infection (URI) is a common viral infection of the nose, throat, and upper airpassages that lead to the lungs. The most common type of URI is the common cold. URIs usually get better on their own, without medical treatment. What are the causes? A URI is caused by a virus. You may catch a virus by: ??? Breathing in droplets from an infected person's cough or sneeze. ??? Touching something that has been exposed to the virus (is contaminated) and then touching your mouth, nose, or eyes. What increases the risk? You are more likely to get a URI if: ??? You are very young or very old. ??? You have close contact with others, such as at work, school, or a health care facility. ??? You smoke. ??? You have long-term (chronic) heart or lung disease. ??? You have a weakened disease-fighting system (immune system). ??? You have nasal allergies or asthma. ??? You are experiencing a lot of stress. ??? You have poor nutrition. What are the signs or symptoms? A URI usually involves some of the following symptoms: ??? Runny or stuffy (congested) nose. ??? Cough. ??? Sneezing. ??? Sore throat. ??? Headache. ??? Fatigue. ??? Fever. ??? Loss of appetite. ??? Pain in your forehead, behind your eyes, and over your cheekbones (sinus pain). ??? Muscle aches. ??? Redness or irritation of the eyes. ??? Pressure in the ears or face. How is this diagnosed? This condition may be diagnosed based on your medical history and symptoms, and a physical exam. Your health care provider may use a swab to take a mucus sample from your nose (nasal swab). This sample can be tested to determine what virus is causing the illness. How is this treated? URIs usually get better on their own within 7?10 days. Medicines cannot cure URIs, but your health care provider may recommend certain medicines to help relieve symptoms, such as: ??? Rswg-ktl-qilwcuy cold medicines. ??? Cough suppressants. Coughing is a type of defense against infection that helps to clear the respiratory system, so take these medicines only as recommended by your health care provider. ??? Fever-reducing medicines. Follow these instructions at home: Activity ??? Rest as needed. ??? If you have a fever, stay home from work or school until your fever is gone or until your health care provider says your URI cannot spread to other people (is no longer contagious). Your health care provider may have you wear a face mask to prevent your infection from spreading. Relieving symptoms ??? Gargle with a mixture of salt and water 3?4 times a day or as needed. To make salt water, completely dissolve ??1 tsp (3?6 g) of salt in 1 cup (237 mL) of warm water. ??? Use a cool-mist humidifier to add moisture to the air. This can help you breathe more easily. Eating and drinking ??? Drink enough fluid to keep your urine pale yellow. ??? Eat soups and other clear broths. General instructions ??? Take zjzs-qyz-ceonehr and prescription medicines only as told by your health care provider. These include cold medicines, fever reducers, and cough suppressants. ??? Do not use any products that contain nicotine or tobacco. These products include cigarettes, chewing tobacco, and vaping devices, such as e-cigarettes. If you need help quitting, ask your health care provider. ??? Stay away from secondhand smoke. ??? Stay up to date on all immunizations, including the yearly (annual) flu vaccine. ??? Keep all follow-up visits. This is important. How to prevent the spread of infection to others URIs can be contagious. To prevent the infection from spreading: ??? Wash your hands with soap and water for at least 20 seconds. If soap and water are not available, 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 ??? Avoid touching your mouth, face, eyes, or nose. ??? Cough or sneeze into a tissue or your sleeve or elbow instead of into your hand or into the air. Contact a health care provider if: ??? You are getting worse instead of better. ??? You have a fever or chills. ??? Your mucus is brown or red. ??? You have yellow or brown discharge coming from your nose. ??? You have pain in your face, especially when you bend forward. ??? You have swollen neck glands. ??? You have pain while swallowing. ??? You have white areas in the back of your throat. Get help right away if: ??? You have shortness of breath that gets worse. ??? You have severe or persistent: ? Headache. ? Ear pain. ? Sinus pain. ? Chest pain. ??? You have chronic lung disease along with any of the following: ? Making high-pitched whistling sounds when you breathe, most often when you breathe out (wheezing). ? Prolonged cough (more than 14 days). ? Coughing up blood. ? A change in your usual mucus. ??? You have a stiff n (more content not included)...[facility] 01-20-2025 NoteED Patient Education Note Orthopedics Chronic Back [...] them backward. ??? 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 ??? Take [...] body. ? Avoid twisting. Medicines ??? Take lesk-lbg-gofbiab and prescription medicines only as told by [...] your pee (urine) pale yellow. ? Take qnry-hdd-oqdzzdy or prescription medicines. ? Eat foods that [...] Reviewed: 10/29/2022 Elsevier Patient Education ? 2023 [employer] Acute Back Pain, Adult Acute back pain [...] yard work. ??? A hit to the aliyah (more content not included)...[facility] 01-18-2025 Emergency department Note* Dejan Alonso RN - 01/18/2025 7:51 PM EDT Patient discharged to home, alert and oriented, skin warm, dry and pink. Denies needs and or questions. Will follow-up as directed, patient encouraged to return for worsening or new symptoms or otherconcerns. [id number] Emergency [facility] Note* Dejan Alonso RN - 01/18/2025 7:51 PM EDT Patient discharged to home, alert and oriented, skin warm, dry and pink. Denies needs and or questions. Will follow-up as directed, patient encouraged to return for worsening or new symptoms or otherconcerns. * Dejan Alonso RN - 01/18/2025 7:28 PM EDT Patient is a 49 year-old female that arrived to ED RM 12 from [facility]. Arrival from patient's home.Transfers by wheelchair and Presents with c/o of back pain. symptoms started yesterday, and treated with morphine pain pump. Patient condition is stable. Patient is AA&Ox4. VS are stable. Patient mentions that she has her pain pump due to her bulging disk at L4-5, L5-S1, and severe narrowing at L5and S1. Dr. Paz is the physician that manages her pain and physician is at vacation. * Jenny King MD - 01/18/2025 7:25 PM EDT TRIAGE CHIEF COMPLAINT: Chief Complaint Patient presents with Back Pain HPI: Jerad Tracy is a 49 year old female in [facility] who presents to the ED with chronic lumbar back pain. She states that she has disc bulging at L4-L5 and L5-S1. She has a pain pump and follows with a pain management doctor. She states that she is not sure that the pain pump is still working as her pain has been increased over the past few days. Denies any new injuries. Her pain management doctor is currently out of town. Pain does radiate down her left leg which is chronic. Independent Historian: None External Records Review: None REVIEW OF SYSTEMS: Otherwise negative unless stated above PAST MEDICAL HISTORY: Past Medical History: Diagnosis Date Chronic back pain Liver fibrosis FAMILY HISTORY: No family history on file. SOCIAL HISTORY: Social History Socioeconomic History Marital status: Legally Spouse name: Not on file Number of children: Not on file Years of education: Not on file Highest education level: Not on file Occupational History Not on file Tobacco Use Smoking status: Every Day Current packs/day: 0.50 Average packs/day: 0.5 packs/day for 35.8 years (17.9 ttl pk-yrs) Types: Cigarettes Start date: 03/25/1989 Smokeless tobacco: Never Vaping Use Vaping status: Never Used Substance and Sexual Activity Alcohol use: Not Currently Drug use: Never Sexual activity: Not on file Other Topics Concern Not on file Social History Narrative Not on file Social Drivers of Health Financial Resource Strain: Low Risk (06/12/2024) Received from [facility] Overall Financial Resource Strain (CARDIA) Difficulty of Paying Living Expenses: Not hard at all Food Insecurity: No Food Insecurity (06/12/2024) Received from [facility] Hunger Vital Sign Within the past 12 months, you worried that your food would run out before you got the money to buymore.: Never true Within the past 12 months, the food you bought just didn't last and you didn't have money to get more.: Never true Transportation Needs: No Transportation Needs (06/12/2024) Received from [facility] PRAPARE - Transportation Lack of Transportation (Medical): No Lack of Transportation (Non-Medical): No Physical Activity: Inactive (06/12/2024) Received from [facility] Exercise Vital Sign On average, how many days per week do you engage in moderate to strenuous exercise (like a brisk walk)?: 0 days On average, how many minutes do you engage in exercise at this level?: 0 min Stress: No Stress Concern Present (06/12/2024) Received from [facility] - Occupational Stress Questionnaire Feeling of Stress : Not at all Recent Concern: Stress - Stress Concern Present (04/02/2024) Received from [facility] - Occupational Stress Questionnaire Feeling of Stress : Rather much Social Connections: Socially Isolated (06/12/2024) Received from [facility] Social Connection and Isolation Panel In a typical week, how many times do you talk on the phone with family, friends, or neighbors?: More than three times a week How often do you get together with friends or relatives?: Twice a week How often do you attend caodaism or adventism services?: Never Do you belong to any clubs or organizations such as caodaism groups, unions, fraternal or athletic groups, or school groups?: No How often do you attend meetings of the clubs or organizations you belong to?: Never Are you , , , , never , or living with a partner?: Intimate Partner Violence: Not At Risk (06/12/2024) Received from [facility] Humiliation, Afraid, Rape, and Kick questionnaire Within the last year, have you been afraid of your partner or ex-partner?: No Within the last year, have you been humiliated or emotionally abused in other ways by your partner or ex-partner?: No Within the last year, have you been kicked, hit, slapped, or otherwise physically hurt by your partner or ex-partner?: No Within the last year, have you been raped or forced to have any kind of sexual activity by your partner or ex-partner?: No Housing Stability: Low Risk (06/12/2024) Received from [facility] Housing Stability Vital Sign In the last 12 months, was there a time when you were not able to pay the mortgage or rent on time?: No In the past 12 months, how many times have you moved where you were living?: 0 At any time in the past 12 months, were you homeless or living in a fpc (including now)?: No SURGICAL HISTORY: Past Surgical History: Procedure Laterality Date Myringotomy Other Surgical History L4 removal and shaved down L5 REMOVAL GALLBLADDER REMOVAL OF TONSILS,14+ Y/O VAG HYST 250 GM/< CURRENT MEDICATIONS: Current Facility-Administered Medications: morphine injection syringe 8 mg, 8 mg, Subcutaneous, Now, Jenny King MD Current Outpatient Medications: lidocaine patch (LIDODERM) 5 % topical patch, Apply 1 Patch daily, Disp: 14 Patch, Rfl: 0 ketorolac (TORADOL) 10 mg tablet, Take 1 Tab by mouth every 6 hours as needed for up to 30 doses, Disp: 30 Tab, Rfl: 0 ibuprofen (MOTRIN) 800 mg tablet, Take 1 Tab by mouth as needed in the morning and 1 Tab as needed at noon and 1 Tab as needed in the evening for Pain., Disp: , Rfl: diazePAM (VALIUM) 5 mg tablet, Take 1 Tab by mouth three times a day, Disp: 10 Tab, Rfl: 0 naproxen (NAPROSYN) 500 mg tablet, Take 1 Tab by mouth two times a day as needed (pain), Disp: 20 Tab, Rfl: 0 methocarbamoL (ROBAXIN) 750 mg tablet, Take 2 Tab by mouth three times a day as needed, Disp: 30 Tab, Rfl: 0 gabapentin (NEURONTIN) 300 mg capsule, Take 1 Cap by mouth three times a day, Disp: , Rfl: ALLERGIES: Hydrocodone-acetaminophen and Penicillin g PHYSICAL EXAM: VITAL SIGNS: See chart CONSTITUTIONAL: Awake, appears non-toxic HENT: Atraumatic, normocephalic, oral mucosa moist, airway patent. Nares patent without drainage. External ears normal. EYES: Conjunctiva clear, extraocular movements intact NECK: Trachea midline CARDIOVASCULAR: Normal heart rate, regular rhythm. PULMONARY/CHEST: Clear to auscultation, no rhonchi, wheezes, or rales. Non-tender. ABDOMINAL: Soft, nondistended. Nontender without rebound or guarding. BACK: Midline and left paraspinal lumbar tenderness without step-off. No CVA tenderness. NEUROLOGIC: Alert and oriented, non-focal, no gross sensory or motor deficits. EXTREMITIES: Spontaneously moving all extremities. SKIN: Warm, Dry ED COURSE / MEDICAL DECISION MAKING: Jerad Tracy is a 49 year old female who presents to the emergency department with back pain withsciatica. This is a known chronic issue. She states that she just needs 1 dose of pain meds to helpreset her system. She takes ibuprofen at home. She does not want a prescription for home. Her normal dose for breakthrough pain like this is 8 mg of morphine. This was ordered. She will be dischargedinstruction to follow-up closely with her pain management doctor and spine surgeon along with PCP and strict return precautions. She voiced understanding and agreement the plan. She was discharged instable condition. Independent Interpretation of Studies: None Discussion of Management: None Escalation/De-Escalation of Care: Appropriate for outpatient management Additional Considerations Affecting Care: None Billable Critical Care Time: None or <30 minutes FINAL IMPRESSION: Acute on chronic lumbar back pain with sciatica Electronically signed by: Jenny King MD, 01/18/2025 7:38 PM documented in this encounterOhio [facility] [id number] Emergency department Triage note* Dejan Alonos, RN - 01/18/2025 7:28 PM EDT Patient is a 49 year-old female that arrived to ED RM 12 from [facility]. Arrival from patient's home.Transfers by wheelchair and Presents with c/o of back pain. symptoms started yesterday, and treated with morphine pain pump. Patient condition is stable. Patient is AA&Ox4. VS are stable. Patient mentions that she has her pain pump due to her bulging disk at L4-5, L5-S1, and severe narrowing at L5and S1. Dr. Paz is the physician that manages her pain and physician is at vacation. [id number] Physician Emergency department Note* Jenny King MD - 01/18/2025 7:25 PM EDT TRIAGE CHIEF COMPLAINT: Chief Complaint Patient presents with Back Pain HPI: Jerad Tracy is a 49 year old female in [facility] who presents to the ED with chronic lumbar back pain. She states that she has disc bulging at L4-L5 and L5-S1. She has a pain pump and follows with a pain management doctor. She states that she is not sure that the pain pump is still working as her pain has been increased over the past few days. Denies any new injuries. Her pain management doctor is currently out of town. Pain does radiate down her left leg which is chronic. Independent Historian: None External Records Review: None REVIEW OF SYSTEMS: Otherwise negative unless stated above PAST MEDICAL HISTORY: Past Medical History: Diagnosis Date Chronic back pain Liver fibrosis FAMILY HISTORY: No family history on file. SOCIAL HISTORY: Social History Socioeconomic History Marital status: Legally Spouse name: Not on file Number of children: Not on file Years of education: Not on file Highest education level: Not on file Occupational History Not on file Tobacco Use Smoking status: Every Day Current packs/day: 0.50 Average packs/day: 0.5 packs/day for 35.8 years (17.9 ttl pk-yrs) Types: Cigarettes Start date: 03/25/1989 Smokeless tobacco: Never Vaping Use Vaping status: Never Used Substance and Sexual Activity Alcohol use: Not Currently Drug use: Never Sexual activity: Not on file Other Topics Concern Not on file Social History Narrative Not on file Social Drivers of Health Financial Resource Strain: Low Risk (06/12/2024) Received from [facility] Overall Financial Resource Strain (CARDIA) Difficulty of Paying Living Expenses: Not hard at all Food Insecurity: No Food Insecurity (06/12/2024) Received from [facility] Hunger Vital Sign Within the past 12 months, you worried that your food would run out before you got the money to buymore.: Never true Within the past 12 months, the food you bought just didn't last and you didn't have money to get more.: Never true Transportation Needs: No Transportation Needs (06/12/2024) Received from [facility] PRAPARE - Transportation Lack of Transportation (Medical): No Lack of Transportation (Non-Medical): No Physical Activity: Inactive (06/12/2024) Received from [facility] Exercise Vital Sign On average, how many days per week do you engage in moderate to strenuous exercise (like a brisk walk)?: 0 days On average, how many minutes do you engage in exercise at this level?: 0 min Stress: No Stress Concern Present (06/12/2024) Received from [facility] - Occupational Stress Questionnaire Feeling of Stress : Not at all Recent Concern: Stress - Stress Concern Present (04/02/2024) Received from [facility] - Occupational Stress Questionnaire Feeling of Stress : Rather much Social Connections: Socially Isolated (06/12/2024) Received from [facility] Social Connection and Isolation Panel In a typical week, how many times do you talk on the phone with family, friends, or neighbors?: More than three times a week How often do you get together with friends or relatives?: Twice a week How often do you attend caodaism or adventism services?: Never Do you belong to any clubs or organizations such as caodaism groups, unions, fraternal or athletic groups, or school groups?: No How often do you attend meetings of the clubs or organizations you belong to?: Never Are you , , , , never , or living with a partner?: Intimate Partner Violence: Not At Risk (06/12/2024) Received from [facility] Humiliation, Afraid, Rape, and Kick questionnaire Within the last year, have you been afraid of your partner or ex-partner?: No Within the last year, have you been humiliated or emotionally abused in other ways by your partner or ex-partner?: No Within the last year, have you been kicked, hit, slapped, or otherwise physically hurt by your partner or ex-partner?: No Within the last year, have you been raped or forced to have any kind of sexual activity by your partner or ex-partner?: No Housing Stability: Low Risk (06/12/2024) Received from [facility] Housing Stability Vital Sign In the last 12 months, was there a time when you were not able to pay the mortgage or rent on time?: No In the past 12 months, how many times have you moved where you were living?: 0 At any time in the past 12 months, were you homeless or living in a fpc (including now)?: No SURGICAL HISTORY: Past Surgical History: Procedure Laterality Date Myringotomy Other Surgical History L4 removal and shaved down L5 REMOVAL GALLBLADDER REMOVAL OF TONSILS,14+ Y/O VAG HYST 250 GM/< CURRENT MEDICATIONS: Current Facility-Administered Medications: morphine injection syringe 8 mg, 8 mg, Subcutaneous, Now, Jenny King MD Current Outpatient Medications: lidocaine patch (LIDODERM) 5 % topical patch, Apply 1 Patch daily, Disp: 14 Patch, Rfl: 0 ketorolac (TORADOL) 10 mg tablet, Take 1 Tab by mouth every 6 hours as needed for up to 30 doses, Disp: 30 Tab, Rfl: 0 ibuprofen (MOTRIN) 800 mg tablet, Take 1 Tab by mouth as needed in the morning and 1 Tab as needed at noon and 1 Tab as needed in the evening for Pain., Disp: , Rfl: diazePAM (VALIUM) 5 mg tablet, Take 1 Tab by mouth three times a day, Disp: 10 Tab, Rfl: 0 naproxen (NAPROSYN) 500 mg tablet, Take 1 Tab by mouth two times a day as needed (pain), Disp: 20 Tab, Rfl: 0 methocarbamoL (ROBAXIN) 750 mg tablet, Take 2 Tab by mouth three times a day as needed, Disp: 30 Tab, Rfl: 0 gabapentin (NEURONTIN) 300 mg capsule, Take 1 Cap by mouth three times a day, Disp: , Rfl: ALLERGIES: Hydrocodone-acetaminophen and Penicillin g PHYSICAL EXAM: VITAL SIGNS: See chart CONSTITUTIONAL: Awake, appears non-toxic HENT: Atraumatic, normocephalic, oral mucosa moist, airway patent. Nares patent without drainage. External ears normal. EYES: Conjunctiva clear, extraocular movements intact NECK: Trachea midline CARDIOVASCULAR: Normal heart rate, regular rhythm. PULMONARY/CHEST: Clear to auscultation, no rhonchi, wheezes, or rales. Non-tender. ABDOMINAL: Soft, nondistended. Nontender without rebound or guarding. BACK: Midline and left paraspinal lumbar tenderness without step-off. No CVA tenderness. NEUROLOGIC: Alert and oriented, non-focal, no gross sensory or motor deficits. EXTREMITIES: Spontaneously moving all extremities. SKIN: Warm, Dry ED COURSE / MEDICAL DECISION MAKING: Jerad Tracy is a 49 year old female who presents to the emergency department with back pain withsciatica. This is a known chronic issue. She states that she just needs 1 dose of pain meds to helpreset her system. She takes ibuprofen at home. She does not want a prescription for home. Her normal dose for breakthrough pain like this is 8 mg of morphine. This was ordered. She will be dischargedinstruction to follow-up closely with her pain management doctor and spine surgeon along with PCP and strict return precautions. She voiced understanding and agreement the plan. She was discharged instable condition. Independent Interpretation of Studies: None Discussion of Management: None Escalation/De-Escalation of Care: Appropriate for outpatient management Additional Considerations Affecting Care: None Billable Critical Care Time: None or <30 minutes FINAL IMPRESSION: Acute on chronic lumbar back pain with sciatica Electronically signed by: Jenny King MD, 01/18/2025 7:38 PM T [id number] NoteED Patient Education Note Orthopedics Chronic Back [...] them backward. ??? 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 ??? Take [...] body. ? Avoid twisting. Medicines ??? Take tffo-dso-obykgwj and prescription medicines only as told by [...] your pee (urine) pale yellow. ? Take tqfi-uhv-qqrvldx or prescription medicines. ? Eat foods that [...] Reviewed: 10/29/2022 Elsevier Patient Education ? 2023 [employer].[facility] 01-17-2025 NoteED Patient Education Note Orthopedics Acute Back [...] Managing pain, stiffness, and swelling ??? Take ngjv-kvw-vjlkvpa and prescription medicines only as told by [...] day. ??? 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 ??? Y (more content not included)...[facility]10-24-2025 NoteED Patient Education Note Orthopedics Chronic Back [...] them backward. ??? 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 ??? Take [...] body. ? Avoid twisting. Medicines ??? Take ehzl-reg-jegtkyj and prescription medicines only as told by [...] your pee (urine) pale yellow. ? Take fotw-sxt-qjfrrpl or prescription medicines. ? Eat foods that [...] provider. Document Revised: 10/29/2022 Document Reviewed: 10/29/2022 [employer] Patient Education ? 2023 [employer].[facility] 01-03-2025 NoteED Patient Education Note Orthopedics Chronic Back [...] them backward. ??? 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 ??? Take [...] body. ? Avoid twisting. Medicines ??? Take pser-nbo-fnzhbke and prescription medicines only as told by [...] your pee (urine) pale yellow. ? Take keim-fru-biukzdr or prescription medicines. ? Eat foods that [...] provider. Document Revised: 10/29/2022 Document Reviewed: 10/29/2022 [employer] Patient Education ? 2023 [employer] [employer] 12-27-2024 NoteED Patient Education Note Gastroenterology Hypokalemia Hypokalemia [...] This condition may be caused by: ??? Antibiotic medicine. ??? Diarrhea or vomiting. Taking too much of a medicine that helps you have a bowel movement (laxative) can cause diarrhea and lead to hypokalemia. ??? Chronic kidney disease (CKD). ??? Medicines that help the body get rid of excess fluid (diuretics). ??? Eating disorders, such as anorexia or bulimia. ??? Low magnesium levels in the body. ??? Sweating a lot. What are the signs or symptoms? Symptoms of this condition include: ??? Weakness. ??? Constipation. ??? Fatigue. ??? Muscle cramps. ??? Mental confusion. ??? Skipped heartbeats or irregular heartbeat (palpitations). ??? Tingling or numbness. How is this diagnosed? This condition is diagnosed with a blood test. How is this treated? This condition may be treated by: ??? Taking potassium supplements. ??? Adjusting the medicines that you take. ??? Eating more foods that contain a lot of potassium. If your potassium level is very low, you may need to get potassium through an IV and be monitored in the hospital. Follow these instructions at home: Eating and drinking ??? Eat a healthy diet. A healthy diet includes fresh fruits and vegetables, whole grains, healthy fats, and lean proteins. ??? If told, eat more foods that contain [...] milk products, such as yogurt. General instructions ??? Take nnjl-ggl-vpsfwke and prescription medicines only as told by your health care provider. This includes vitamins, natural food products, and supplements. ??? Keep all follow-up visits. This is important. Contact a health care provider if: ??? You have weakness that gets worse. ??? You feel your heart pounding or racing. ??? You vomit. ??? You have diarrhea. ??? You have diabetes and you have trouble keeping your blood sugar in your target range. Get help right away if: ??? You have chest pain. ??? You have shortness of breath. ??? You have vomiting or diarrhea that lasts for more than 2 days. ??? You faint. These symptoms may be an emergency. Get help right away. Call 911. ??? Do not wait to see if the symptoms will go away. ??? Do not drive yourself to the hospital. Summary ??? Hypokalemia means that the amount of potassium in the blood is lower than normal. ??? This condition is diagnosed with a blood test. ??? Hypokalemia may be treated by taking potassium supplements, adjusting the medicines that you take, or eating more foods that are high in potassium. ??? If your potassium level is very low, you may need to get potassium through an IV and be monitored in the hospital. This information is not intended to replace advice given to you by your health care provider. Make sure you discuss any questions you have with your health care provider. Document Revised: 11/23/2021 Document Reviewed: 11/23/2021 [employer] Patient Education ? 2023 [employer]. Mental and Behavioral Health Chronic Pain, Adult [...] your health care provider. This may include: ??? Gentle, regular exercise. ??? Eating a healthy diet that includes foods such as vegetables, fruits, fish, and lean meats. ??? Mental health therapy (cognitive or behavioral therapy) adrian (more content not included)...[facility]09-29-2025 NoteProgress Note-Nurse left with [facility]09-29-2025 NoteED Patient Education Note Orthopedics Chronic Back [...] them backward. ??? 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 ??? Take [...] body. ? Avoid twisting. Medicines ??? Take wyvs-ibs-kqquskc and prescription medicines only as told by [...] your pee (urine) pale yellow. ? Take matl-agz-tisimth or prescription medicines. ? Eat foods that [...] provider. Document Revised: 10/29/2022 Document Reviewed: 10/29/2022 [employer] Patient Education ? 2023 [employer] 12-06-2024 NoteED Patient Education Note Mental and Behavioral Health Chronic Pain, Adult [...] your health care provider. This may include: ??? Gentle, regular exercise. ??? Eating a healthy diet that includes foods such as vegetables, fruits, fish, and lean meats. ??? Mental health therapy (cognitive or behavioral therapy) that changes the way you think or act in response to the pain. This may help improve how you feel. ??? Doing physical therapy exercises to improve movement and strength. ??? Meditation, yoga, acupuncture, or massage therapy. ??? Using the oils from plants in your environment or on your skin (aromatherapy). Other treatments may include: ??? Twwr-ojn-yxkubqy or prescription medicines. ??? Color, light, or sound therapy. ??? Local electrical stimulation. The electrical pulses help to relieve pain by temporarily stopping the nerve impulses that cause you to feel pain. ??? Injections. These deliver numbing or pain-relieving medicines into the spine or the area of pain. Medicines ??? Take dacn-txj-ezdxkrp and prescription medicines only as told by your health care provider. ??? Ask your health care provider if the medicine prescribed to you: ? Requires you to avoid driving or using machinery. ? Can cause constipation. You may need to take these actions to prevent or treat constipation: ? Drink enough fluid to keep your urine pale yellow. ? Take eded-psf-xieasuf or prescription medicines. ? Eat foods that are high in fiber, such as beans, whole grains, and fresh fruits and vegetables. ? Limit foods that are high in fat and processed sugars, such as fried or sweet foods. Lifestyle ??? Ask your health care provider whether you should keep a pain diary. Your health care provider will tell you what information to write in the diary. This may include: ? When you have pain. ? What the pain feels like. ? How medicines and other behaviors or treatments help to reduce the pain. ??? Consider talking with a mental health care provider about how to help manage chronic pain. ??? Consider joining a chronic pain support group. ??? Try to control or lower your stress levels. Talk with your health care provider about ways to do this. General instructions ??? Learn as much as you can about how to manage your chronic pain. Ask your health care provider if an intensive pain rehabilitation program or a chronic pain specialist would be helpful. ??? Check your pain level as told by your health care provider. Ask your health care provider if you should use a pain scale. Contact a health care provider if: ??? Your pain is not controlled with treatment. ??? You have new pain. ??? You have side effects from pain medicine. ??? You feel weak or you have trouble doing your normal activities. ??? You have trouble sleeping or you develop confusion. ??? You lose feeling or have numbness in your body. ??? You lose control of your bowels or bladder. Get help right away if: ??? Your pain suddenly gets much worse. ??? You develop chest pain. ??? You have trouble breathing or shortness of breath. ??? You faint, or another person sees you faint. These symptoms may be an emergency. Get help right away. Call 911. ??? Do not wait to see if the symptoms will go away. ??? Do not drive yourself to the hospital. Also, get help right away if: ??? You have thoughts about hurting yourself or others. Take one of these steps if you feel like you may hurt yourself or others, or have thoughts about taking your own life: ??? Go to your nearest emergency room. ??? Call 371. ??? Call the National Suicide Prevention Lifeline at or 438. This is open 24 hours aday. ??? Text the Crisis Text Line at 965873. This information is not intended to replace advice given to you by your health care provider. Make sure you discuss any questions you have with your health care provider. Document Revised: 10/31/2022 Document Reviewed: 10/03/2022 [employer] Patient Education ? 2023 [employer] 12-01-2024 NoteED Patient Education Note Mental and Behavioral Health Chronic Pain, Adult [...] your health care provider. This may include: ??? Gentle, regular exercise. ??? Eating a healthy diet that includes foods such as vegetables, fruits, fish, and lean meats. ??? Mental health therapy (cognitive or behavioral therapy) that changes the way you think or act in response to the pain. This may help improve how you feel. ??? Doing physical therapy exercises to improve movement and strength. ??? Meditation, yoga, acupuncture, or massage therapy. ??? Using the oils from plants in your environment or on your skin (aromatherapy). Other treatments may include: ??? Njdb-grc-nxdjutv or prescription medicines. ??? Color, light, or sound therapy. ??? Local electrical stimulation. The electrical pulses help to relieve pain by temporarily stopping the nerve impulses that cause you to feel pain. ??? Injections. These deliver numbing or pain-relieving medicines into the spine or the area of pain. Medicines ??? Take zacz-cja-vmkrtuu and prescription medicines only as told by your health care provider. ??? Ask your health care provider if the medicine prescribed to you: ? Requires you to avoid driving or using machinery. ? Can cause constipation. You may need to take these actions to prevent or treat constipation: ? Drink enough fluid to keep your urine pale yellow. ? Take muim-qzq-pajgbax or prescription medicines. ? Eat foods that are high in fiber, such as beans, whole grains, and fresh fruits and vegetables. ? Limit foods that are high in fat and processed sugars, such as fried or sweet foods. Lifestyle ??? Ask your health care provider whether you should keep a pain diary. Your health care provider will tell you what information to write in the diary. This may include: ? When you have pain. ? What the pain feels like. ? How medicines and other behaviors or treatments help to reduce the pain. ??? Consider talking with a mental health care provider about how to help manage chronic pain. ??? Consider joining a chronic pain support group. ??? Try to control or lower your stress levels. Talk with your health care provider about ways to do this. General instructions ??? Learn as much as you can about how to manage your chronic pain. Ask your health care provider if an intensive pain rehabilitation program or a chronic pain specialist would be helpful. ??? Check your pain level as told by your health care provider. Ask your health care provider if you should use a pain scale. Contact a health care provider if: ??? Your pain is not controlled with treatment. ??? You have new pain. ??? You have side effects from pain medicine. ??? You feel weak or you have trouble doing your normal activities. ??? You have trouble sleeping or you develop confusion. ??? You lose feeling or have numbness in your body. ??? You lose control of your bowels or bladder. Get help right away if: ??? Your pain suddenly gets much worse. ??? You develop chest pain. ??? You have trouble breathing or shortness of breath. ??? You faint, or another person sees you faint. These symptoms may be an emergency. Get help right away. Call 911. ??? Do not wait to see if the symptoms will go away. ??? Do not drive yourself to the hospital. Also, get help right away if: ??? You have thoughts about hurting yourself or others. Take one of these steps if you feel like you may hurt yourself or others, or have thoughts about taking your own life: ??? Go to your nearest emergency room. ??? Call 911. ??? Call the National Suicide Prevention Lifeline at or 130. This is open 24 hours aday. ??? Text the Crisis Text Line at 164730. This information is not intended to replace advice given to you by your health care provider. Make sure you discuss any questions you have with your health care provider. Document Revised: 10/31/2022 Document Reviewed: 10/03/2022 [employer] Patient Education ? 2023 [employer] 11-30-2024 NoteED Patient Education Note Gastroenterology Abdominal Pain, [...] these instructions at home: Medicines ??? Take wbox-qsf-mtxkcja and prescription medicines only as told by your provider. ??? Do not take medicines that help you poop (laxatives) unless told by your provider. General instructions ??? Watch your condition for any changes. ??? Drink enough fluid to keep your pee (urine) pale yellow. Contact a health care provider if: ??? Your pain changes, gets worse, or lasts longer than expected. ??? You have severe cramping or bloating in your abdomen, or you vomit. ??? Your pain gets worse with meals, after eating, or with certain foods. ??? You are constipated or have diarrhea for more than 2?3 days. ??? You are not hungry, or you lose weight without trying. ??? You have signs of dehydration. These may include: ? Dark pee, very little pee, or no pee. ? Cracked lips or dry mouth. ? Sleepiness or weakness. ??? You have pain when you pee (urinate) or poop. ??? Your abdominal pain wakes you up at night. ??? You have blood in your pee. ??? You have a fever. Get help right away if: ??? You cannot stop vomiting. ??? Your pain is only in one part of the abdomen. Pain on the right side could be caused by appendicitis. ??? You have bloody or black poop (stool), or poop that looks like tar. ??? [...] provider. Document Revised: 12/26/2022 Document Reviewed: 12/26/2022 [employer] Patient Education ? 2023 [employer] 11-27-2024 Hospital Discharge instructions* Discharge Instructions* Michel Calero, - 11/27/2024 12:38 PM EDT Immediate Post-op Instructions: As you have received IV sedation, do not drive or operate any machinery until the day after your procedure. No alcohol for 24 hours after the surgery due to the anesthesia given. Take it easy on the day of procedure, and slowly return back to normal activity the following day as discomfort permits. You may shower after I see you in the office. You may sponge bath. Leave the dressings in place andonly change if it appears to have gotten wet underneath. Feel free to change the dressing in a day or two reapplying a waterproof bandaid.You may need assistance with dressing changes. Leave a dressing on for at least a week to minimize risk of infection. No hot tubs/Jacuzzi for 10 days or until the wounds are completely healed. Resume your normal diet as tolerated. Expect some discomfort at the surgical site, this varies by patient. It may take 4-6 weeks to heal from the procedure and the back pain may persist while you are healing. If you notice any new symptoms especially going down your legs, please notify us immediately. Apply ice to your back for 15-20 minutes, 3 - 4 times a day for the first few days. If you should use heat (only for 10-15 minutes) for comfort, please follow that with ice (as above). Medications and instructions will be provided to address post-operative pain or discomfort. Take your home pain medication if needed. Resume your routine medications unless you have been instructed otherwise. Please hold delay any lengthy travel for approximately 3 - 4 weeks. Please discuss any questions or concerns with your physician. Follow up and further care: The surgical department may call you within 24-48 hours to check on you. A post-operative visit will be scheduled ~2 weeks after the procedure. [facility] Outpatient Discharge Instructions To continue your care at home, please follow the instructions below and any additional discharge instructions given to you by your physician. GENERAL ANESTHESIA: Do not drive or operate machinery for 24hrs after discharge, Do not drink alcohol, take tranquilizers, sleeping medication, or any other medication not directlyinstructed by your physician, Do not make any important decisions or sign any legal documents for 24hrs after surgery, Have someone with you for 24hrs after surgery to assist you as needed. ACTIVITY: Light activity for 24hrs, No heavy lifting or exercise until instructed by your physician, You may resume normal activities once instructed by your physician, Special Instruction: FLUIDS AND DIET: An upset stomach or feeling sick (nausea) can commonly occur after surgery and/or pain medication use. To help minimize nausea: Do not eat a heavy meal soon after your surgery, Start with water or other clear liquids, Advance to mild or bland items like Jell-O, dry toast, crackers, etc., Avoid caffeine, Do not drink alcohol for at least 24 hours after surgery, Your physician may prescribe anti-nausea medication if your nausea continues, If you are free from nausea for 24hrs, you can advance to your normal diet as tolerated. OPERATIVE SITE: A small amount of bleeding or drainage after surgery is normal. Your physician will provide you with specific instructions on how to care for your surgical site and/or dressing. Try not to touch your surgical site unless necessary, Always wash your hands BEFORE and AFTER changing your dressing if instructed by your physician, Proper handwashing includes wetting your hands with clean water, applying soap, lathering your hands by rubbing them together with soap for 20 seconds, rinsing them with clean water, and drying them with a clean towel. If soap and water is not available, alcohol-based rougher merchant mill may be applied by rubbing the hands together and allowing them to dry for 20 seconds. Special Instructions: PAIN: Pain after surgery is normal and should be expected. When you go home, the anesthesia wears off, and you may experience increased discomfort. Your provider will give you specific instructions on whatpain medication to take at home. Listed below is additional information on treating pain after surgery: Pain medication can give you an upset stomach. Unless your provider has instructed you not to eat or drink, the pain medication should be taken with a small amount of food. Eating will decrease the chance of an upset stomach. Pain medication can take about 20-30 minutes to start working, so do not wait until the pain worsens before taking a dose. Remember, always take fsba-uve-tmrscqw and prescription drugs only as directed by your provider. Unless otherwise instructed by your provider, applying ice on or around your surgical site can be agreat way to help minimize pain and swelling after surgery. Apply ice to the affected area a minimum of 4 times daily for no longer than 15- 20 minutes at a time. It is very important to protect your skin by NOT applying ice or ice pack directly to your skin. Always have a towel or pillow case between your skin and the ice. Frozen vegetable packs like peas or corn make great inexpensive alternatives for use as an icepack. FOLLOW UP CARE - Call your Physician if any of the following occur: Increased swelling, redness, warmth, hardness around operative area, Blood soaked dressings (small amounts of oozing may be normal), Numb, tingling, or cold fingers or toes (for surgeries on extremities) Fever over 101 F, Increased drainage, puss, and/or odor from surgical site, Pain not relieved by medications ordered Unable to urinate [facility] of Present illness Narrative* Caatlina Joyce RN - 11/27/2024 9:18 AM EDT [employer] rep at bedside documented in [facility] NoteED Patient Education Note Orthopedics Chronic Back [...] them backward. ??? 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 ??? Take [...] body. ? Avoid twisting. Medicines ??? Take zybv-hcl-livdonc and prescription medicines only as told by [...] your pee (urine) pale yellow. ? Take crwq-rbf-lpilfwy or prescription medicines. ? Eat foods that [...] provider. Document Revised: 10/29/2022 Document Reviewed: 10/29/2022 [employer] Patient Education ? 2023 [employer] 11-20-2024 NoteED Patient Education Note Orthopedics Chronic Back [...] them backward. ??? 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 ??? Take [...] body. ? Avoid twisting. Medicines ??? Take mddz-fjr-suiuuzo and prescription medicines only as told by [...] your pee (urine) pale yellow. ? Take qosm-prm-pcmhlbz or prescription medicines. ? Eat foods that [...] Reviewed: 10/29/2022 [employer] Patient Education ? 2023 [employer] 11-18-2024 NoteED Patient Education Note Orthopedics Chronic Back [...] them backward. ??? 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 ??? Take [...] body. ? Avoid twisting. Medicines ??? Take ckmh-hbl-mwuvtao and prescription medicines only as told by [...] your pee (urine) pale yellow. ? Take mbsu-goy-ofuwdtf or prescription medicines. ? Eat foods that [...] Reviewed: 10/29/2022 [employer] Patient Education ? 2023 [employer] 11-11-2024 NoteED Patient Education Note Orthopedics Acute Back [...] Managing pain, stiffness, and swelling ??? Take iglz-sef-utekopa and prescription medicines only as told by [...] day. ??? 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 ??? Y (more content not included)...[facility]08-18-2025 Emergency department Triage note* Jessica Hemphill RN - 11/09/2024 4:13 PM EDT Patient states she is having back pain that increased 3 days ago. Patient has had surgery on her back most recently in January. L4, L5, L5, S1 fixed the tendon and put in a stimulator temporarily. [facility] Work Phone: 1(250) 142-383408-18-2025 Emergency department Note* Jessica Hemphill RN - 11/09/2024 4:13 PM EDT Patient states she is having back pain that increased 3 days ago. Patient has had surgery on her back most recently in January. L4, L5, L5, S1 fixed the tendon and put in a stimulator temporarily. [facility] Work [facility]: 1(137) 709-786508-17-2025 NoteED Patient Education Note Orthopedics Chronic Back [...] them backward. ??? 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 ??? Take [...] body. ? Avoid twisting. Medicines ??? Take wsjv-zen-aqfpmac and prescription medicines only as told by [...] your pee (urine) pale yellow. ? Take pyde-dbj-iqqxhkw or prescription medicines. ? Eat foods that [...] Reviewed: 10/29/2022 [employer] Patient Education ? 2023 [employer] 11-01-2024 NoteED Patient Education Note Orthopedics Chronic Back [...] them backward. ??? 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 ??? Take [...] body. ? Avoid twisting. Medicines ??? Take nvzf-hky-pkkhrrd and prescription medicines only as told by [...] your pee (urine) pale yellow. ? Take ctbk-raq-xqsszmg or prescription medicines. ? Eat foods that [...] provider. Document Revised: 10/29/2022 Document Reviewed: 10/29/2022 [email or web address] Patient Education ? 2023 [employer] 10-31-2024 Hospital Discharge instructions* Discharge Instructions* Soraya Ariza APRN - CNP - 10/31/2024 1:35 PM EDT Follow-up with your pain management doctor Saturday. Take your prescription medications as ordered. Keep a blood pressure log. Decrease salt in diet. Follow-up with PCP. Return to the emergency department for any new or worsening symptoms. * Attachments The following attachments cannot be sent through Care Everywhere. * Back Pain (Malagasy) * Low Back Pain: Exercises (Malagasy) * Sciatica (Malagasy) * Diet: DASH (Malagasy) * Hypertension: General Info (Malagasy) documented in this encounterBon [facility] NoteED Patient Education Note Orthopedics Chronic Back [...] them backward. ??? 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 ??? Take [...] body. ? Avoid twisting. Medicines ??? Take dgqg-ahi-nfvlhos and prescription medicines only as told by [...] your pee (urine) pale yellow. ? Take rhjv-slo-dgwkxuq or prescription medicines. ? Eat foods that [...] Reviewed: 10/29/2022 [employer] Patient Education ? 2023 [employer] 10-28-2024 NoteED Patient Education Note Orthopedics Chronic Back [...] them backward. ??? 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 ??? Take [...] body. ? Avoid twisting. Medicines ??? Take ztgs-rbp-gjkzylv and prescription medicines only as told by [...] your pee (urine) pale yellow. ? Take pamz-paf-wknsurq or prescription medicines. ? Eat foods that [...] provider. Document Revised: 10/29/2022 Document Reviewed: 10/29/2022 [employer] Patient Education ? 2023 [employer] 10-25-2024 NoteED Patient Education Note Orthopedics Chronic Back [...] them backward. ??? 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 ??? Take [...] body. ? Avoid twisting. Medicines ??? Take nwcn-mak-fgvltjd and prescription medicines only as told by [...] your pee (urine) pale yellow. ? Take qdit-pgb-latsjln or prescription medicines. ? Eat foods that [...] provider. Document Revised: 10/29/2022 Document Reviewed: 10/29/2022 [employer] Patient Education ? 2023 [employer] 10-23-2024 NoteED Patient Education Note Orthopedics Chronic Back [...] them backward. ??? 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 ??? Take [...] body. ? Avoid twisting. Medicines ??? Take imlm-kvx-kstnsje and prescription medicines only as told by [...] your pee (urine) pale yellow. ? Take vgbj-sjt-ysqqdog or prescription medicines. ? Eat foods that [...] provider. Document Revised: 10/29/2022 Document Reviewed: 10/29/2022 [employer] Patient Education ? 2023 [employer] 10-19-2024 NoteED Patient Education Note Orthopedics Chronic Back [...] them backward. ??? 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 ??? Take [...] body. ? Avoid twisting. Medicines ??? Take kyev-wxe-yptyqwo and prescription medicines only as told by [...] your pee (urine) pale yellow. ? Take qovt-zrl-odcanre or prescription medicines. ? Eat foods that [...] provider. Document Revised: 10/29/2022 Document Reviewed: 10/29/2022 [employer] Patient Education ? 2023 [employer] 10-15-2024 NoteED Patient Education Note Orthopedics Chronic Back [...] them backward. ??? 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 ??? Take [...] body. ? Avoid twisting. Medicines ??? Take dhfl-kqy-jmsspfh and prescription medicines only as told by [...] your pee (urine) pale yellow. ? Take sxsm-jgm-qijsewa or prescription medicines. ? Eat foods that [...] provider. Document Revised: 10/29/2022 Document Reviewed: 10/29/2022 [employer] Patient Education ? 2023 [employer] Acute Back Pain, Adult Acute back pain is sudden and usually short-lived. It is often caused by an injury to the muscles and tissues in the back. The injury may result from: (more content not included)...[facility]07-22-2025 NoteED Patient Education Note Orthopedics Managing Chronic Back Pain Chronic back pain is pain that lasts longer than 3 months. It often affects the lower back. It may feel like a muscle ache or a sharp, stabbing pain. It can be mild, moderate, or severe. There are things you can do to help manage your pain. See what works best for you. Your health careprovider may also give you other instructions. What actions can I take to manage my chronic back pain? You may be given a treatment plan by your provider. Treatment often starts with rest and pain relief. It may also include: ??? Physical therapy. These are exercises to help restore movement and strength to your back. ??? Techniques to help you relax. ??? Counseling or therapy. Cognitive behavioral therapy (CBT) is a form of therapy that helps you set goals and make changes. ??? Acupuncture or massage therapy. ??? Local electrical stimulation. ??? Injections. You may be given medicines to numb an area or relieve pain. If other treatments do not help, you may need surgery. How to use body mechanics and posture to help with pain You can help relieve stress on your back with good posture and healthy body mechanics. Body mechanics are all the ways your body moves during the day. Posture is part of body mechanics. Good posture means: ??? Your spine is in its correct S-curve, or neutral, position. ??? Your shoulders are pulled back a bit. ??? Your head is not tipped forward. To improve your posture and body mechanics, follow these guidelines. Standing ??? When standing, keep your feet about hip-width apart. Keep your knees slightly bent. Your ears, shoulders, and hips should line up. Your spine should be neutral. ??? 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 Sitting ??? When sitting, keep your feet flat on the floor. Use a footrest, if needed. Keep your thighs parallel to the floor. Try not to round your shoulders or tilt your head forward. ??? When working at a desk or a computer: ? Position your desk so your hands are a little lower than your elbows. ? Slide your chair under your desk so you are close enough to have good posture. ? Position your monitor so you are looking straight ahead and do not have to tilt your head to viewthe screen. Lifting ??? Keep your feet shoulder-width apart. Tighten the muscles of your abdomen. ??? Bend your knees and hips. Keep your spine neutral. Lift using the strength of your legs, not your back. Do not lock your knees straight out. ??? Ask for help to lift heavy or awkward objects. Resting ??? Do not lie down in a way that causes pain. ??? If you have pain when you sit, bend, stoop, or squat, lie in a way that your body does not bendmuch. Try not to curl up on your side with your arms and knees near your chest ( position). ??? If it hurts to stand for a long time or reach with your arms, lie with your spine neutral and knees bent slightly. Try lying: ? On your side with a pillow between your knees. ? On your back with a pillow under your knees. How to recognize changes in your chronic back pain Let your provider know if your pain gets worse or does not get better with treatment. Your back pain may be getting worse if you have pain that: ??? Starts to cause problems with your posture. ??? Gets worse when you sit, stand, walk, bend, or lift things. ??? Happens when you are active, at rest, or both. ??? Makes it hard for you to move around (limits mobility). ??? Occurs with fever, weight loss, or trouble peeing (urinating). ??? Causes numbness and tingling. Follow these instructions at home: Medicines ??? You may need to take medicines for pain and inflammation. These may be taken by mouth or put onthe skin. You may also be given muscle relaxants. ??? Take exfs-xhz-popobaw and prescription medicines only as told by your provider. ??? Ask your provider if the medicine prescribed to you: ? Requires you to avoid driving or using machinery. ? Can cause constipation. You may need to take these actions to prevent or treat constipation: ? Drink enough fluid to keep your pee (urine) pale yellow. ? Take kxrg-gxz-oaivjlb or prescription medicines. ? Eat foods that are high in fiber, such as beans, whole grains, and fresh fruits and vegetables. ? Limit foods that are high in fat and processed sugars, such as fried or sweet foods. Lifestyle ??? Do not use any products that contain nicotine or tobacco. These products include cigarettes, chewing tobacco, and vaping devices, such as e-cigarettes. If you need help quitting, ask your provider. ??? Eat a healthy diet. Eat lots of vegetables, fruits, fish, and lean meats. ??? Work with your provider to stay at a healthy weight. [employer] (more content not included)...[facility]07-22-2025 Note Progress Note-Nurse leaves with [facility]07-17-2025 Hospital Discharge instructions* Discharge Instructions* Alondra Anthony RN - 10/08/2024 12:42 PM EDT Do NOT submerge in water for 48 hours. Follow all pre-op instructions from Dr. Calero's office. If you received oral Ativan or IV versed: Do not drive or operate machinery for 24hrs after discharge. Do not drink alcohol, take tranquilizers, sleeping medication, or any other medication not directlyinstructed by your physician. Do not make any important decisions or sign any legal documents for 24hrs. Have someone with you for 24hrs after procedure to assist you as needed. OPERATIVE SITE: A small amount of bleeding or drainage after injection is normal. Your physician will provide you with specific instructions on how to care for your surgical site and/or dressing. Try not to touch your site unless necessary. Always wash your hands BEFORE and AFTER changing your dressing if instructed by your physician. Proper handwashing includes wetting your hands with clean water, applying soap, lathering your hands by rubbing them together with soap for 20 seconds, rinsing them with clean water, and drying them with a clean towel. If soap and water is not available, alcohol-based rougher [employer] mill may be applied by rubbing the hands together and allowing them to dry for 20 seconds. PAIN: Pain after a procedure is normal and should be expected. When you go home, the anesthesia wears off, and you may experience increased discomfort. Your provider will give you specific instructions on what pain medication to take at home. Listed below is additional information on treating pain after a procedure: Pain medication can give you an upset stomach. Unless your provider has instructed you not to eat or drink, the pain medication should be taken with a small amount of food. Eating will decrease the chance of an upset stomach. Pain medication can take about 20-30 minutes to start working, so do not wait until the pain worsens before taking a dose. Remember, always take wswb-dtt-jkdhrjs and prescription drugs only as directed by your provider. Unless otherwise instructed by your provider, applying ice on or around your surgical site can be agreat way to help minimize pain and swelling after surgery. Apply ice to the affected area a minimum of 4 times daily for no longer than 15- 20 minutes at a time. It is very important to protect your skin by NOT applying ice or ice pack directly to your skin. Always have a towel or pillow case between your skin and the ice. Frozen vegetable packs like peas or corn make great inexpensive alternatives for use as an icepack. FOLLOW UP CARE - Call your Physician if any of the following occur: Increased swelling, redness, warmth, hardness around operative area, Blood soaked dressings (small amounts of oozing may be normal), Numb, tingling, or cold fingers or toes (for surgeries on extremities) Fever over 101 F, Increased drainage, puss, and/or odor from surgical site, Pain not relieved by medications ordered Unable to urinate FLUIDS AND DIET: An upset stomach or feeling sick (nausea) can commonly occur after surgery and/or pain medication use. To help minimize nausea: Do not eat a heavy meal soon after your surgery, Start with water or other clear liquids, Advance to mild or bland items like Jell-O, dry toast, crackers, etc., Avoid caffeine, Do not drink alcohol for at least 24 hours after surgery, Your physician may prescribe anti-nausea medication if your nausea continues, If you are free from nausea for 24hrs, you can advance to your normal diet as tolerated. * Attachments The following attachments cannot be sent through Care Everywhere. * Intrathecal Pain Pump: Implanted: General Info (Malagasy) [facility] History of Present illness Narrative* Alondra Anthony RN - 10/08/2024 12:31 PM EDT 1220-Pt received from procedure room via cart. Report received from OR nurse. Dr. Calero at bedside. Neuro intact. No numbness or tingling. Push/pulls equal and strong. Pt able to lift both legs without difficulty. Resp even and unlabored. Pulse ox 97% on admission. No dyspnea. No SOB. No nausea reported. Pt tolerated procedure well. Dressing dry and intact x 1. Pt reports pain as 0/10. 1310- Reviewed written discharge instructions with patient. Copy of written discharge instructions given to patient. 1320-Pt denies pain.. Rates Pain as 0/10. Neuro Assessment wnl upon discharge. Pulse ox 96% on RA, no desat. Discharge via ambulation with son. documented in this [facility] NoteED Patient Education Note Orthopedics Chronic Back [...] them backward. ??? 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 ??? Take [...] body. ? Avoid twisting. Medicines ??? Take tjsf-fdy-btftker and prescription medicines only as told by [...] your pee (urine) pale yellow. ? Take hawt-wqm-syrrlzk or prescription medicines. ? Eat foods that [...] provider. Document Revised: 10/29/2022 Document Reviewed: 10/29/2022 [employer] Patient Education ? 2023 [employer] 10-04-2024 NoteProgress Note-Nurse pt leaves [facility]07-[facility]25 NoteED Patient Education Note Orthopedics Chronic Back [...] them backward. ??? 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 ??? Take [...] body. ? Avoid twisting. Medicines ??? Take jmbz-kgp-akmwimj and prescription medicines only as told by [...] your pee (urine) pale yellow. ? Take qsvw-aka-vhnkzcv or prescription medicines. ? Eat foods that [...] provider. Document Revised: 10/29/2022 Document Reviewed: 10/29/2022 [employer] Patient Education ? 2023 [employer] 10-01-2024 NoteED Patient Education Note Orthopedics Managing Chronic Back Pain Chronic back pain is pain that lasts longer than 3 months. It often affects the lower back. It may feel like a muscle ache or a sharp, stabbing pain. It can be mild, moderate, or severe. There are things you can do to help manage your pain. See what works best for you. Your health careprovider may also give you other instructions. What actions can I take to manage my chronic back pain? You may be given a treatment plan by your provider. Treatment often starts with rest and pain relief. It may also include: ??? Physical therapy. These are exercises to help restore movement and strength to your back. ??? Techniques to help you relax. ??? Counseling or therapy. Cognitive behavioral therapy (CBT) is a form of therapy that helps you set goals and make changes. ??? Acupuncture or massage therapy. ??? Local electrical stimulation. ??? Injections. You may be given medicines to numb an area or relieve pain. If other treatments do not help, you may need surgery. How to use body mechanics and posture to help with pain You can help relieve stress on your back with good posture and healthy body mechanics. Body mechanics are all the ways your body moves during the day. Posture is part of body mechanics. Good posture means: ??? Your spine is in its correct S-curve, or neutral, position. ??? Your shoulders are pulled back a bit. ??? Your head is not tipped forward. To improve your posture and body mechanics, follow these guidelines. Standing ??? When standing, keep your feet about hip-width apart. Keep your knees slightly bent. Your ears, shoulders, and hips should line up. Your spine should be neutral. ??? 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 Sitting ??? When sitting, keep your feet flat on the floor. Use a footrest, if needed. Keep your thighs parallel to the floor. Try not to round your shoulders or tilt your head forward. ??? When working at a desk or a computer: ? Position your desk so your hands are a little lower than your elbows. ? Slide your chair under your desk so you are close enough to have good posture. ? Position your monitor so you are looking straight ahead and do not have to tilt your head to viewthe screen. Lifting ??? Keep your feet shoulder-width apart. Tighten the muscles of your abdomen. ??? Bend your knees and hips. Keep your spine neutral. Lift using the strength of your legs, not your back. Do not lock your knees straight out. ??? Ask for help to lift heavy or awkward objects. Resting ??? Do not lie down in a way that causes pain. ??? If you have pain when you sit, bend, stoop, or squat, lie in a way that your body does not bendmuch. Try not to curl up on your side with your arms and knees near your chest ( position). ??? If it hurts to stand for a long time or reach with your arms, lie with your spine neutral and knees bent slightly. Try lying: ? On your side with a pillow between your knees. ? On your back with a pillow under your knees. How to recognize changes in your chronic back pain Let your provider know if your pain gets worse or does not get better with treatment. Your back pain may be getting worse if you have pain that: ??? Starts to cause problems with your posture. ??? Gets worse when you sit, stand, walk, bend, or lift things. ??? Happens when you are active, at rest, or both. ??? Makes it hard for you to move around (limits mobility). ??? Occurs with fever, weight loss, or trouble peeing (urinating). ??? Causes numbness and tingling. Follow these instructions at home: Medicines ??? You may need to take medicines for pain and inflammation. These may be taken by mouth or put onthe skin. You may also be given muscle relaxants. ??? Take iapg-ifa-jnlrcgf and prescription medicines only as told by your provider. ??? Ask your provider if the medicine prescribed to you: ? Requires you to avoid driving or using machinery. ? Can cause constipation. You may need to take these actions to prevent or treat constipation: ? Drink enough fluid to keep your pee (urine) pale yellow. ? Take sfid-sgq-efkyslr or prescription medicines. ? Eat foods that are high in fiber, such as beans, whole grains, and fresh fruits and vegetables. ? Limit foods that are high in fat and processed sugars, such as fried or sweet foods. Lifestyle ??? Do not use any products that contain nicotine or tobacco. These products include cigarettes, chewing tobacco, and vaping devices, such as e-cigarettes. If you need help quitting, ask your provider. ??? Eat a healthy diet. Eat lots of vegetables, fruits, fish, and lean meats. ??? Work with your provider to stay at a healthy weight. [employer] (more content not included)...[facility]07-05-2025 Hospital Discharge instructions Patient Education 09/26/2024 16:17:32 Chronic Back Pain Chronic Back Pain Chronic [...] pull them backward. 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 Take brief [...] to your body. ?Avoid twisting. Medicines Take rmle-tby-ntwcdbc and prescription medicines only as told by [...] keep your pee (urine) pale yellow. ?Take rrit-fro-kgissjs or prescription medicines. ?Eat foods that are [...] provider. Document Revised: 10/29/2022 Document Reviewed: 10/29/2022 [employer] Patient Education 2023 [employer]. Follow Up Care 09/26/2024 14:03:00 With:KRISTAN LAU Address:Unknown When:09/29/2024 15:43:33 [facility] 07-05-2025 NoteED Patient Education Note Orthopedics Chronic Back [...] them backward. ??? 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 ??? Take [...] body. ? Avoid twisting. Medicines ??? Take pzao-nee-lobgzlz and prescription medicines only as told by [...] your pee (urine) pale yellow. ? Take uopu-tlw-mgiwpyb or prescription medicines. ? Eat foods that [...] provider. Document Revised: 10/29/2022 Document Reviewed: 10/29/2022 [employer] Patient Education ? 2023 [employer] 09-26-2024 Evaluation + Plan noteExtracted from:Title:ED NoteAuthor:Brandon MILES, JansenDate:09/26/24 Back pain, chronic (M54.9: D orsalgia, unspecified) Other chronic pain (G89.29: Other chronic pain) Orders: morphine, 8 mg = 2 mL, Injection, IntraMuscular, Once, Stop date 09/26/24 15:43:00 EDT, STAT, Startdate 09/26/24 15:43:00 EDT, 09/26/24 15:43:00 EDT Future Appointments Appointment Date:10/13/2024 11:00:00 AM Scheduled Provider:FLOR JONES Location:[facility] Appointment Type:[facility] 06-30-2025 Hospital Discharge instructions Patient Education 09/21/2024 12:07:31 Chronic Back Pain Chronic Back Pain Chronic [...] pull them backward. 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 Take brief [...] to your body. ?Avoid twisting. Medicines Take vrsi-yks-tfhtadk and prescription medicines only as told by [...] keep your pee (urine) pale yellow. ?Take lhtk-wvz-okcjalb or prescription medicines. ?Eat foods that are [...] provider. Document Revised: 10/29/2022 Document Reviewed: 10/29/2022 [employer] Patient Education 2023 [employer]. Follow Up Care 09/21/2024 10:40:13 With:KRISTAN LAU Address: [address] [place] [address] [address] [place] [address]- Business (1) When:09/24/2024 11:48:13 [facility] 06-30-2025 NoteED Patient Education Note Orthopedics Chronic Back [...] them backward. ??? 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 ??? Take [...] body. ? Avoid twisting. Medicines ??? Take emna-fhe-elxkqup and prescription medicines only as told by [...] your pee (urine) pale yellow. ? Take bwce-xrq-xgulikk or prescription medicines. ? Eat foods that [...] provider. Document Revised: 10/29/2022 Document Reviewed: 10/29/2022 [employer] Patient Education ? 2023 [employer] 09-21-2024 NoteProgress Note-Nurse pt left with ride before im wait time and DC papers.[facility] 09-16-2024 Hospital Discharge instructions* Discharge Instructions* Cydney Pittman NP-C - 09/16/2024 6:22 PM EDT Follow-up with PCP, pain management. Return to ED if any new, or worsening symptoms. * Attachments The following attachments cannot be sent through Care Everywhere. * Back: Stretches: Exercises (Malagasy) * Back Pain (Malagasy) [facility] Discharge instructions* Discharge Instructions* Soraya Ariza APRN - CNP - 09/14/2024 5:46 PM EDT Follow-up with your pain management doctor and orthopedic doctor as discussed. Return to the emergency department for any new or worsening symptoms. * Attachments The following attachments cannot be sent through Care Everywhere. * Back Pain (Malagasy) * Degenerative Disc Disease: General Info (Malagasy) [facility] Hospital Discharge instructions* Discharge Instructions* Mik Jenkins MD - 09/13/2024 8:38 PM EDT You were seen in the ER today due to left lower back pain. You do have an extensive history of sciatica. You do have extensive follow-up with spine surgery and pain management with anesthesiology. You are scheduled to get a pain pump placed in the future. At this time, given that you see pain management, from the ED perspective, we cannot give you continued prescriptions as it would interfere with their plan of care. Please call them tomorrow, Saturday, to follow- up sooner for more further pain control. * Attachments The following attachments cannot be sent through Care Everywhere. * Sciatica (Malagasy) * Back Pain (Malagasy) documented in this encounterBon [facility] Discharge instructions Patient Education 09/13/2024 13:31:42 Acute Back Pain, Adult Acute Back Pain, [...] home: Managing pain, stiffness, and swelling Take nhvm-vsp-oijpvms and prescription medicines only as told by [...] each day. 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 Take tvix-ffm-vybuwmq and prescription medicines only as told by your health care provider, and apply heat or ice as told. This information is not intended to replace advice given to you by your health care provider. Make sure you discuss any questions you have with your health care provider. Document Revised: 06/02/2021 Document Reviewed: 06/02/2021 [employer] Patient Education 2023 [employer]. Follow Up Care 09/13/2024 12:33:17 With:KRISTAN LAU Address:Unknown When:09/16/2024 13:29:55 Comments:Call the office of your primary care [...] breath, or any new or worsening symptoms. [facility] 06-22-2025 Evaluation + Plan noteExtracted from:Title: ED NoteAuthor:Nikhil Tubbs DODate:09/13/24 Chronic back pain (M54.9: Do rsalgia, unspecified) Other chronic pain (G89.29: Other chronic pain) Orders: HYDROmorphone, 1 mg = 1 mL, Injection, IntraMuscular, Once, Stop date 09/13/24 13:29:00 EDT, STAT, Start date 09/13/24 13:29:00 EDT, 09/13/24 13:29:00 EDT Future Appointments Appointment Date:10/13/2024 11:00:00 AM Scheduled Provider:FLOR JONES Location:[facility] Appointment Type:[facility] 06-22-2025 NoteED Patient Education Note Orthopedics Acute Back [...] Managing pain, stiffness, and swelling ??? Take hbuw-xsi-wbgwipu and prescription medicines only as told by [...] day. ??? 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 ??? Y (more content not included)...[facility]06-13-2025 Hospital Discharge instructions Patient Education 09/04/2024 14:14:39 Acute Back Pain, Adult Acute Back Pain, [...] home: Managing pain, stiffness, and swelling Take akwv-owe-zlriide and prescription medicines only as told by [...] each day. 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 Take edys-dea-udedair and prescription medicines only as told by your health care provider, and apply heat or ice as told. This information is not intended to replace advice given to you by your health care provider. Make sure you discuss any questions you have with your health care provider. Document Revised: 06/02/2021 Document Reviewed: 06/02/2021 [employer] Patient Education 2023 [employer]. Follow Up Care 09/04/2024 13:13:18 With:KRISTAN LAU Address:Unknown When:09/07/2024 14:14:12 Comments:Call to schedule follow-up appointment with your primary care provider. Follow-up with the pain pump as scheduled in a couple of weeks. Return to the ED with any new or worsening symptoms. [facility] 06-13-2025 NoteED Patient Education Note Orthopedics Acute Back [...] Managing pain, stiffness, and swelling ??? Take pzuf-arx-rmyagnu and prescription medicines only as told by [...] day. ??? 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 ??? Y (more content not included)...[facility]06-10-2025 Hospital Discharge instructions* Discharge Instructions* Zoe Lorenz HOT BLASTER - WAIVER ANALYST - 09/01/2024 4:02 PM EDT Follow up with pain management. * Attachments The following attachments cannot be sent through Care Everywhere. * Back Pain (Malagasy) [facility]* Discharge Instructions* Cameron Dan APRN - CNP - 08/30/2024 7:[address] Mcleod's office first thing tomorrow morning to schedule follow-up. * Attachments The following attachments cannot be sent through Care Everywhere. * Back: Preventing Injuries (Malagasy) [facility] Discharge instructions* Discharge Instructions* Cameron Hamm MD - 08/29/2024 4:40 AM EDT You presented to the ED for your chronic lower back pain. You are noted to have weakness and improved after pain control. Follow-up with your neurosurgeon as scheduled. Follow-up with our neurosurgery team as needed. Neurosurgery clinic phone number is [phone]. * Attachments The following attachments cannot be sent through Care Everywhere. * Low Back Pain Discharge Instructions (Malagasy) [facility] 1(163) 764-300606-06-2025 Emergency department Triage note* Mavis Romero RN - 08/28/2024 8:39 PM EDT Pt presented with c/o chronic lower back pain [facility] Work Phone: 1(158) 684-931006-06-2025 Emergency department Note* Mavis Romero RN - 08/28/2024 8:39 PM EDT Pt presented with c/o chronic lower back pain documented [facility] this [facility] Work Phone: 1(719) 707-200606-05-2025 Evaluation + Plan noteExtracted from:Title: ED NoteAuthor:Arley SLATER Nikhil NguyenAdrienDate:08/27/24 Chronic back pain (M54.9: Do rsalgia, unspecified) Other chronic pain (G89.29: Other chronic pain) Orders: HYDROmorphone, 1 mg = 1 mL, Injection, IntraMuscular, Once, Stop date 08/27/24 9:54:00 EDT, STAT, Start date 08/27/24 9:54:00 EDT, 08/27/24 9:54:00 EDT Future Appointments Appointment Date:10/13/2024 11:00:00 AM Scheduled Provider:FLOR JONES Location:[facility] Appointment Type:[facility] 06-05-2025 Hospital Discharge instructions Patient Education 08/27/2024 10:07:25 Chronic Pain, Adult Chronic Pain, Adult Chronic [...] as vegetables, fruits, fish, and lean meats. Mental health therapy (cognitive or behavioral therapy) that changes the way you think or act in response to the pain. This may help improve how you feel. Doing physical therapy exercises to improve movement and strength. Meditation, yoga, acupuncture, or massage therapy. Using the oils from plants in your environment or on your skin (aromatherapy). Other treatments may include: Oqgi-juq-qxnfpeu or prescription medicines. Color, light, or sound therapy. Local electrical stimulation. The electrical pulses help to relieve pain by temporarily stopping the nerve impulses that cause you to feel pain. Injections. These deliver numbing or pain-relieving medicines into the spine or the area of pain. Medicines Take xyfu-kwa-kcxdruk and prescription medicines only as told by your health care provider. Ask your health care provider if the medicine prescribed to you: ?Requires you to avoid driving or using machinery. ?Can cause constipation. You may need to take these actions to prevent or treat constipation: ?Drink enough fluid to keep your urine pale yellow. ?Take jkjl-wxr-rikacdr or prescription medicines. ?Eat foods that are high in fiber, such as beans, whole grains, and fresh fruits and vegetables. ?Limit foods that are high in fat and processed sugars, such as fried or sweet foods. Lifestyle Ask your health care provider whether you should keep a pain diary. Your health care provider will tell you what information to write in the diary. This may include: ?When you have pain. ?What the pain feels like. ?How medicines and other behaviors or treatments help to reduce the pain. Consider talking with a mental health care provider about how to help manage chronic pain. Consider joining a chronic [...] scale. Contact a health care provider if: Your pain is not controlled with treatment. You have new pain. You have side effects from pain medicine. You feel weak or you have trouble doing your normal activities. You have trouble sleeping or you develop confusion. You lose feeling or have numbness in your body. You lose control of your bowels or bladder. Get help right away if: Your pain suddenly gets much worse. You develop chest pain. You have trouble breathing or shortness of breath. You faint, or another person sees you faint. These symptoms may be an emergency. Get help right away. Call 911. Do not wait to see if the symptoms will go away. Do not drive yourself to the hospital. Also, get help right away if: You have thoughts about hurting yourself or others. Take one of these steps if you feel like you may hurt yourself or others, or have thoughts about taking your own life: Go to your nearest emergency room. Call 911. Call the National Suicide Prevention Lifeline at or 482. This is open 24 hours a day. Text the Crisis Text Line at 066661. This information is not intended to replace advice given to you by your health care provider. Make sure you discuss any questions you have with your health care provider. Document Revised: 10/31/2022 Document Reviewed: 10/03/2022 [employer] Patient Education 2023 [employer]. Follow Up Care 08/27/2024 09:20:47 With:KRISTAN LAU Address:Unknown When:08/30/2024 10:06:45 Comments:Call the office of your primary care [...] breath, or any new or worsening symptoms. [facility] 06-05-2025 NoteED Patient Education Note Mental and Behavioral Health Chronic Pain, Adult [...] your health care provider. This may include: ??? Gentle, regular exercise. ??? Eating a healthy diet that includes foods such as vegetables, fruits, fish, and lean meats. ??? Mental health therapy (cognitive or behavioral therapy) that changes the way you think or act in response to the pain. This may help improve how you feel. ??? Doing physical therapy exercises to improve movement and strength. ??? Meditation, yoga, acupuncture, or massage therapy. ??? Using the oils from plants in your environment or on your skin (aromatherapy). Other treatments may include: ??? Bubx-xxv-qtfsopr or prescription medicines. ??? Color, light, or sound therapy. ??? Local electrical stimulation. The electrical pulses help to relieve pain by temporarily stopping the nerve impulses that cause you to feel pain. ??? Injections. These deliver numbing or pain-relieving medicines into the spine or the area of pain. Medicines ??? Take mkwp-zqb-fwanktc and prescription medicines only as told by your health care provider. ??? Ask your health care provider if the medicine prescribed to you: ? Requires you to avoid driving or using machinery. ? Can cause constipation. You may need to take these actions to prevent or treat constipation: ? Drink enough fluid to keep your urine pale yellow. ? Take htlu-xzi-xogdxww or prescription medicines. ? Eat foods that are high in fiber, such as beans, whole grains, and fresh fruits and vegetables. ? Limit foods that are high in fat and processed sugars, such as fried or sweet foods. Lifestyle ??? Ask your health care provider whether you should keep a pain diary. Your health care provider will tell you what information to write in the diary. This may include: ? When you have pain. ? What the pain feels like. ? How medicines and other behaviors or treatments help to reduce the pain. ??? Consider talking with a mental health care provider about how to help manage chronic pain. ??? Consider joining a chronic pain support group. ??? Try to control or lower your stress levels. Talk with your health care provider about ways to do this. General instructions ??? Learn as much as you can about how to manage your chronic pain. Ask your health care provider if an intensive pain rehabilitation program or a chronic pain specialist would be helpful. ??? Check your pain level as told by your health care provider. Ask your health care provider if you should use a pain scale. Contact a health care provider if: ??? Your pain is not controlled with treatment. ??? You have new pain. ??? You have side effects from pain medicine. ??? You feel weak or you have trouble doing your normal activities. ??? You have trouble sleeping or you develop confusion. ??? You lose feeling or have numbness in your body. ??? You lose control of your bowels or bladder. Get help right away if: ??? Your pain suddenly gets much worse. ??? You develop chest pain. ??? You have trouble breathing or shortness of breath. ??? You faint, or another person sees you faint. These symptoms may be an emergency. Get help right away. Call 911. ??? Do not wait to see if the symptoms will go away. ??? Do not drive yourself to the hospital. Also, get help right away if: ??? You have thoughts about hurting yourself or others. Take one of these steps if you feel like you may hurt yourself or others, or have thoughts about taking your own life: ??? Go to your nearest emergency room. ??? Call 911. ??? Call the National Suicide Prevention Lifeline at or 477. This is open 24 hours aday. ??? Text the Crisis Text Line at 867527. This information is not intended to replace advice given to you by your health care provider. Make sure you discuss any questions you have with your health care provider. Document Revised: 10/31/2022 Document Reviewed: 10/03/2022 [employer] Patient Education ? 2023 [employer].[facility] 08-20-2024 History of Present illness Narrative* Nicole Beaver MD - 08/20/2024 9:04 PM EDT Patient Name: Jerad Tracy Admit Date: 08/20/2024 5:55 PM MR #: [id number] : 1975 Attending Physician: Elvia Jimenez emergency room Reason for consult: Neck pain numbness and leg History of Presenting Illness and Review of Systems Jerad Tracy is a 49 y.o. female on hospital day 0 . History Of Present Illness: 08/20/2024 [facility] emergency room for chronic low back and new numbness left lower extremity. Maintains strength objective sensation. Has had chronic back and leg pain.Comorbidities of morbid obesity BMI 47. History: Past Medical History: Diagnosis Date Liver disease Unspecified diseases of blood and blood-forming organs hepatitis C Past Surgical History: Procedure Laterality Date CHOLECYSTECTOMY HYSTERECTOMY (CERVIX STATUS UNKNOWN) TONSILLECTOMY Family History History reviewed. No pertinent family history. [] Unable to obtain due to ventilated and/ or neurologic status Social History Socioeconomic History Marital status: Spouse name: Not on file Number of children: Not on file Years of education: Not on file Highest education level: Not on file Occupational History Not on file Tobacco Use Smoking status: Every Day Current packs/day: 0.50 Average packs/day: 0.5 packs/day for 15.0 years (7.5 ttl pk-yrs) Types: Cigarettes Smokeless tobacco: Not on file Substance and Sexual Activity Alcohol use: No Drug use: No Sexual activity: Not on file Other Topics Concern Not on file Social History Narrative Not on file Social Drivers of Health Financial Resource Strain: Low Risk (06/12/2024) Received from [facility] Overall Financial Resource Strain (CARDIA) Difficulty of Paying Living Expenses: Not hard at all Food Insecurity: No Food Insecurity (06/12/2024) Received from [facility] Hunger Vital Sign Worried About Running Out of Food in the Last Year: Never true Ran Out of Food in the Last Year: Never true Transportation Needs: No Transportation Needs (06/12/2024) Received from [facility] PRAPARE - Transportation Lack of Transportation (Medical): No Lack of Transportation (Non-Medical): No Physical Activity: Inactive (06/12/2024) Received from [facility] Exercise Vital Sign Days of Exercise per Week: 0 days Minutes of Exercise per Session: 0 min Stress: No Stress Concern Present (06/12/2024) Received from [facility] - Occupational Stress Questionnaire Feeling of Stress : Not at all Recent Concern: Stress - Stress Concern Present (04/02/2024) Received from [facility] Occupational Health - Occupational Stress Questionnaire Feeling of Stress : Rather much Social Connections: Socially Isolated (06/12/2024) Received from [facility] Social Connection and Isolation Panel [NHANES] Frequency of Communication with Friends and Family: More than three times a week Frequency of Social Gatherings with Friends and Family: Twice a week Attends Orthodox Services: Never Active Member of Clubs or Organizations: No Attends Club or Organization Meetings: Never Marital Status: Intimate Partner Violence: Not At Risk (06/12/2024) Received from [facility] Humiliation, Afraid, Rape, and Kick questionnaire Fear of Current or Ex-Partner: No Emotionally Abused: No Physically Abused: No Sexually Abused: No Housing Stability: Low Risk (06/12/2024) Received from [facility] Housing Stability Vital Sign Unable to Pay for Housing in the Last Year: No Number of Times Moved in the Last Year: 0 Homeless in the Last Year: No [] Unable to obtain due to ventilated and/ or neurologic status Home Medications: Not in a hospital admission. Current Hospital Medications: Scheduled Meds: Continuous Infusions: PRN Meds:. . Allergies: Allergies Allergen Reactions Gabapentin Headaches and Other (See Comments) Leg swelling Pcn [Penicillins] Pregabalin Swelling and Other (See Comments) BLE Hydrocodone Rash Nabumetone Nausea And Vomiting and Rash REVIEW OF SYSTEMS (2-9 systems for level 4, 10 or more for level 5) Review of Systems Constitutional: Negative for fever. HENT: Negative for hearing loss. Eyes: Negative for pain. Respiratory: Negative for shortness of breath. Gastrointestinal: Negative for constipation and nausea. Endocrine: Negative for heat intolerance. Genitourinary: Negative for difficulty urinating. Musculoskeletal: Positive for back pain. Negative for neck pain. Skin: Negative for rash. Allergic/Immunologic: Negative for immunocompromised state. Neurological: Negative for headaches. Hematological: Does not bruise/bleed easily. Psychiatric/Behavioral: Negative for sleep disturbance. Physical Exam BP (!) 145/115 Pulse 96 Temp 98.4 F (36.9 C) (Oral) Resp 18 Ht 1.6 m (5' 3 ) Wt 120.2 kg (265 lb) SpO2 100% BMI 46.94 kg/m Body mass index is 46.94 kg/m . Physical Exam Vitals and nursing note reviewed. Constitutional: Appearance: Normal appearance. She is obese. Comments: BMI 47 HENT: Head: Normocephalic and atraumatic. Right Ear: External ear normal. Left Ear: External ear normal. Nose: Nose normal. Mouth/Throat: Pharynx: Oropharynx is clear. Eyes: Extraocular Movements: Extraocular movements intact. Cardiovascular: Pulses: Normal pulses. Pulmonary: Effort: Pulmonary effort is normal. Abdominal: Palpations: Abdomen is soft. Genitourinary: Rectum: Normal. Musculoskeletal: General: Normal range of motion. Cervical back: Normal range of motion. Skin: General: Skin is warm. Neurological: General: No focal deficit present. Psychiatric: Mood and Affect: Mood normal. I have reviewed all laboratory studies, reports, data, and pertinent images. Objective Findings: Vitals: Vitals: 08/20/24 1753 BP: (!) 145/115 Pulse: 96 Resp: 18 Temp: 98.4 F (36.9 C) TempSrc: Oral SpO2: 100% Weight: 120.2 kg (265 lb) Height: 1.6 m (5' 3 ) Laboratory, Microbiology, Pathology, Radiology, Cardiology, Medications and Transcriptions reviewed Scheduled Meds: Continuous Infusions: CT LUMBAR SPINE WO CONTRAST Result Date: 08/20/2024 EXAMINATION: CT OF THE LUMBAR SPINE WITHOUT CONTRAST 08/20/2024 TECHNIQUE: CT of the lumbar spine was performed without the administration of intravenous contrast. Multiplanar reformatted images are provided for review. Adjustment of mA and/or kV according to patient size was utilized. Automated exposure control, iterative reconstruction, and/or weight based adjustment of the mA/kV was utilized toreduce the radiation dose to as low as [...] exam?->CRC FINDINGS: Degenerative disc disease which is mostnoted at the L4-5 and L5-S1 levels. Facet arthropathy. Lumbar vertebral body heights are preserved.Degenerative changes of the sacroiliac joints. There is some edema present within the posterior subc utaneous tissues. Atherosclerotic disease. There are bilateral hypodense [...] of the central canal. Severe bilateral neural foraminalnarrowing. 1. Degenerative disc disease and facet arthropathy with associated narrowing at L4-5 and L5-S1 as detailed above. Consider MRI for further evaluation. Postoperative changes. 2. Hypodense adrenal nodules, likely incidental and benign though with limited evaluation on this study. Recommend dedicated CT or MRI in the absence of prior studies for comparison. Impression: Morbid obesity Chronic back lower extremity pain syndrome Lumbar osteoarthritis degenerative disc disease Plan: Decadron and analgesics [facility] emergency room. Follow-up as outpatient 08/25/2024 8 AM Patient not seen Comments: Patient has had multiple MRI lumbar spine CT scan spine at [facility]. Evaluation at [facility] dynamic lumbar spine x-rays. 02/06/2024 left L4-5 MIS hemilaminotomy partial medial facetectomy microdiscectomy Dr. Woodard [facility]. 04/24/2024 postoperative MRI lumbar spine 04/24/2024 seroma residual left L4-5 scar disc bulging withless neural compression. 05/05/2024 evaluation determined patient not a candidate for further spine surgery. Prior to surgery patient seen by Dr. Melgoza pain management Dr. Elke Adams and spinal cord stimulator placed complicated by infection and removed. 10/20/[address] Harman neurosurgery [facility] Dr. Elke Adams: 08/21/2023 successful spinal cord stimulator trial with [place] 09/23/2023 thoracic spinal cord's placement with [place] Complication with infection 10/14/2023 removal of old spinal cord stimulator washout of wound treated by infectious disease 12/18/2023 emergency department with new onset of bilateral lower extremity numbness tingling 2 episodes of incontinence MRI entire spine cervical thoracic lumbar and CT scan lumbar obtained to rule out cauda equina disease. No cord compression continued improvement in fluid collection patient discharged home. Planned 11/21/2023 thoracic laminectomy for spinal cord stimulator leads generator implant delayed secondary to ongoing wound healing issues. [facility] this [facility]Bon [facility] Evaluation + Plan noteExtracted from:Title:ED NoteAuthor:Brandon MILES, JansenDate:08/17/24 Back pain, chronic (M54.9: D orsalgia, unspecified) Other chronic pain (G89.29: Other chronic pain) Orders: morphine, 8 mg = 2 mL, Injection, IntraMuscular, Once, Stop date 08/17/24 8:58:00 EDT, STAT, Start date 08/17/24 8:58:00 EDT, 08/17/24 8:58:00 EDT ondansetron, 4 mg = 1 tab(s), Tab-Dis, Oral, Once, Stop date 08/17/24 8:58:00 EDT, STAT, Start date08/17/24 8:58:00 EDT, 08/17/24 8:58:00 EDT Future Appointments Appointment Date:08/18/2024 07:00:00 AM Scheduled Provider: Location:[facility] Appointment Type:CV Echo (FT) Appointment Date:10/13/2024 11:00:00 AM Scheduled Provider:FLOR JONES Location:[facility] Appointment Type: Open Future Scheduled Tests Radiology* Echo Transthoracic Complete 08/18/24 [facility] 05-26-2025 Hospital Discharge instructions Patient Education 08/17/2024 09:44:09 Chronic Back Pain Chronic Back Pain Chronic [...] pull them backward. 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 Take brief [...] to your body. ?Avoid twisting. Medicines Take pdnk-vse-ianpkpj and prescription medicines only as told by [...] keep your pee (urine) pale yellow. ?Take ifyc-dlp-xgnmmed or prescription medicines. ?Eat foods that are [...] provider. Document Revised: 10/29/2022 Document Reviewed: 10/29/2022 [email or web address] Patient Education 2023 [employer]. Follow Up Care 08/17/2024 08:35:35 With:KRISTAN LAU Address:Unknown When:08/20/2024 08:58:35 [facility] 05-26-2025 NoteED Patient Education Note Orthopedics Chronic Back [...] them backward. ??? 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 ??? Take [...] body. ? Avoid twisting. Medicines ??? Take iclk-ymh-gckgzpi and prescription medicines only as told by [...] your pee (urine) pale yellow. ? Take hhcp-fhb-klrdnoo or prescription medicines. ? Eat foods that [...] provider. Document Revised: 10/29/2022 Document Reviewed: 10/29/2022 [employer] Patient Education ? 2023 [employer].[facility] 07-20-2024 Hospital Discharge instructions Patient Education 07/20/2024 21:58:12 Drug Allergy Drug Allergy A drug allergy happens when the body's disease-fighting system (immune system) reacts badly to a medicine. Drug allergies range from mild to severe. A drug allergy is not the same as a medicine side effect, which is a known possible reaction to the drug. A drug allergy is also different from medicine toxicity caused by an overdose of the drug. The time of an allergic reaction varies. Symptoms often appear between 1 to 2 hours after taking the medicine; however, some allergic reactions occur 1 week or more after you are exposed to a medicine (delayed reaction). A sudden (acute), severe allergic reaction that affects multiple areas of the body is called an anaphylactic reaction (anaphylaxis). Anaphylaxis can be life- threatening. All allergic reactions to a medicine require medical evaluation, even if the allergic reaction appears to bemild. What are the causes? This condition is caused by the immune system wrongly identifying a medication as being harmful. When this happens, the body releases proteins (antibodies) and other compounds, such as histamine, into the bloodstream. This causes swelling in certain tissues and reduces blood flow to important areas, such as the heart and lungs. Almost any medicine can cause an allergic reaction. Medicines that commonly cause allergic reactions (common allergens) include: Antibiotics, such as penicillin. Sulfa medicines (sulfonamides). Medicines that numb certain areas of the body (local anesthetics). X-ray dyes that contain iodine. Pain-relievers. This includes aspirin and NSAIDs, such as ibuprofen or naproxen sodium. Chemotherapy drugs for treating cancer. Medicines for autoimmune diseases, such as rheumatoid arthritis. What are the signs or symptoms? Common symptoms of a mild allergic reaction include: Nasal congestion. Tingling in the mouth or tongue. An itchy, red rash. Common symptoms of a severe allergic reaction include: Swelling of the face, eyes, lips, or tongue, including the back of the mouth and throat. Difficulty speaking (hoarseness) or swallowing, or making high-pitched whistling sounds, most oftenwhen you breathe out (wheezing). Itchy, red, swollen areas of skin (hives). Dizziness, light-headedness, or fainting. Anxiety or confusion. Chest tightness and fast or irregular heartbeats (palpitations). Abdominal pain, vomiting, or diarrhea. How is this diagnosed? This condition is diagnosed based on a physical exam and your history of recent exposure to one or more medicines. You may be referred for follow-up testing by a health care provider who specializes in allergies. This testing can confirm the diagnosis of a drug allergy and determine which medicinesyou are allergic to. Testing may include: Skin tests. These may involve: ?Injecting a small amount of the possible allergen between layers of your skin (intradermal injection). ?Applying patches to your skin. Blood tests. Drug challenge. For this test, a health care provider gives you a small amount of a medicine in gradual doses while watching for an allergic reaction. If you are unsure of what caused your allergic reaction, your health care provider may ask you for: Information about all medicines that you take on a regular basis. The date and time of your reaction. How is this treated? There is no cure for allergies. However, an allergic reaction can be treated with: Medicines that help: ?Reduce pain and swelling (NSAIDs). ?Relieve itching and hives (antihistamines). ?Reduce swelling (corticosteroids). Respiratory inhalers. These are inhaled medicines that help open (dilate) the airways in your lungs. Injections of medicine that helps to relax the muscles in your airways and tighten your blood vessels (epinephrine). Severe allergic reactions, such as anaphylaxis, require immediate treatment in a hospital. You may need to be hospitalized for observation. You may also be prescribed rescue medicines, such as epinephrine. Epinephrine comes in many forms, including what is commonly called an auto-injector pen (pre-filled automatic epinephrine injection device). Follow these instructions at home: If you have a severe allergy Always keep an auto-injector pen or your anaphylaxis kit near you. This can be lifesaving if you have a severe reaction. Use your auto-injector pen or anaphylaxis kit as told by your health care provider. Make sure that you, the members of your household, and your employer know: ?How to use your auto-injector pen or anaphylaxis kit. ?How to use your auto-injector pen to give you an epinephrine injection. Replace your auto-injector pen or anaphylaxis kit immediately after use, in case you have another reaction. Wear a medical alert bracelet or necklace that states your drug allergy, if told by your health care provider. General instructions Avoid medicines that you are allergic to. Take zqna-wbk-vbkbkho and prescription medicines only as told by your health care provider. If you were given medicines to treat your allergic reaction, do not drive until your health care provider tells you it is safe. If you have hives or a rash: ?Use an qrer-lqa-bhyxvdw antihistamine as told by your health care provider. ?Apply cold, wet cloths (cold compresses) to your skin or take baths or showers in cool water. Avoid hot water. If you had tests done, it is up to you to get your test results. Ask your health care provider whenyour results will be ready. Tell all your health care providers that you have a drug allergy. Keep all follow-up visits This is important. Contact a health care provider if: You think that you are having a mild allergic reaction. Symptoms of an allergic reaction usually start within 1 hour after you are exposed to a medicine. You have symptoms that last more than 2 days after your reaction. You develop new signs or symptoms. Get help right away if: You needed to use epinephrine. ?An epinephrine injection helps to manage life-threatening allergic reactions, but you still need to go to the emergency room even if epinephrine seems to work. This is important because anaphylaxis may happen again within 72 hours (rebound anaphylaxis). ?If you used epinephrine to treat anaphylaxis outside of the hospital, you need additional medical care. This may include more doses of epinephrine. You develop signs or symptoms of a severe allergic reaction. These symptoms may represent a serious problem that is an emergency. Do not wait to see if the symptoms will go away. Use your auto-injector pen or anaphylaxis kit as you have been instructed, and get medical help right away. Call your local emergency services (911 in the [place] Do not drive yourself to the hospital. Summary A drug allergy happens when the body's disease-fighting system reacts badly to a medicine. Drug allergies range from mild to severe. In some cases, an allergic reaction may be life-threatening. If you have a severe allergy, always keep an auto-injector pen or your anaphylaxis kit near you. This information is not intended to replace advice given to you by your health care provider. Make sure you discuss any questions you have with your health care provider. Document Revised: 08/21/2021 Document Reviewed: 08/21/2021 [employer] Patient Education 2023 [employer]. 07/20/2024 21:58:12 Peripheral Edema Peripheral Edema Peripheral edema is swelling that is caused by a buildup of fluid. Peripheral edema most often affects the lower legs, ankles, and feet. It can also develop in the arms, hands, and face. The area of the body that has peripheral edema will look swollen. It may also feel heavy or warm. Your clothes may start to feel tight. Pressing on the area may make a temporary dent in your skin (pitting edema).You may not be able to move your swollen arm or leg as much as usual. There are many causes of peripheral edema. It can happen because of a complication of other conditions such as heart failure, kidney disease, or a problem with your circulation. It also can be a sideeffect of certain medicines or happen because of an infection. It often happens to women during . Sometimes, the cause is not known. Follow these instructions at home: Managing pain, stiffness, and swelling Raise (elevate) your legs while you are sitting or lying down. Move around often to prevent stiffness and to reduce swelling. Do not sit or stand for long periods of time. Do not wear tight clothing. Do not wear garters on your upper legs. Exercise your legs to get your circulation going. This helps to move the fluid back into your bloodvessels, and it may help the swelling go down. Wear compression stockings as told by your health care provider. These stockings help to prevent blood clots and reduce swelling in your legs. It is important that these are the correct size. These stockings should be prescribed by your doctor to prevent possible injuries. If elastic bandages or wraps are recommended, use them as told by your health care provider. Medicines Take vzup-spj-bebqwmb and prescription medicines only as told by your health care provider. Your health care provider may prescribe medicine to help your body get rid of excess water (diuretic). Take this medicine if you are told to take it. General instructions Eat a low-salt (low-sodium) diet as told by your health care provider. Sometimes, eating less salt may reduce swelling. Pay attention to any changes in your symptoms. Moisturize your skin daily to help prevent skin from cracking and draining. Keep all follow-up visits. This is important. Contact a health care provider if: You have a fever. You have swelling in only one leg. You have increased swelling, redness, or pain in one or both of your legs. You have drainage or sores at the area where you have edema. Get help right away if: You have edema that starts suddenly or is getting worse, especially if you are or have a medical condition. You develop shortness of breath, especially when you are lying down. You have pain in your chest or abdomen. You feel weak. You feel like you will faint. These symptoms may be an emergency. Get help right away. Call 911. Do not wait to see if the symptoms will go away. Do not drive yourself to the hospital. Summary Peripheral edema is swelling that is caused by a buildup of fluid. Peripheral edema most often affects the lower legs, ankles, and feet. Move around often to prevent stiffness and to reduce swelling. Do not sit or stand for long periodsof time. Pay attention to any changes in your symptoms. Contact a health care provider if you have edema that starts suddenly or is getting worse, especially if you are or have a medical condition. Get help right away if you develop shortness of breath, especially when lying down. This information is not intended to replace advice given to you by your health care provider. Make sure you discuss any questions you have with your health care provider. Document Revised: 11/13/2021 Document Reviewed: 11/13/2021 [employer] Patient Education 2023 [employer]. Follow Up Care 07/20/2024 18:59:02 With:KRISTAN LAU Address:Unknown When:07/23/2024 21:56:16 Comments:Call the office of your primary care [...] symptoms.Seek immediate medical attention if you develop: worsening shortness of breath, difficulty breathing, chest pain,nausea, vomiting, weakness, numbness, tingling, excessive sweating, loss of motion in your arms or legs, or any new or worsening symptoms. [facility] 04-28-2025 NoteED Patient Education Note Nephrology Peripheral Edema Peripheral edema is swelling that is caused by a buildup of fluid. Peripheral edema most often affects the lower legs, ankles, and feet. It can also develop in the arms, hands, and face. The area of the body that has peripheral edema will look swollen. It may also feel heavy or warm. Your clothes may start to feel tight. Pressing on the area may make a temporary dent in your skin (pitting edema).You may not be able to move your swollen arm or leg as much as usual. There are many causes of peripheral edema. It can happen because of a complication of other conditions such as heart failure, kidney disease, or a problem with your circulation. It also can be a sideeffect of certain medicines or happen because of an infection. It often happens to women during . Sometimes, the cause is not known. Follow these instructions at home: Managing pain, stiffness, and swelling ??? Raise (elevate) your legs while you are sitting or lying down. ??? Move around often to prevent stiffness and to reduce swelling. ??? Do not sit or stand for long periods of time. ??? Do not wear tight clothing. Do not wear garters on your upper legs. ??? Exercise your legs to get your circulation going. This helps to move the fluid back into your blood vessels, and it may help the swelling go down. ??? Wear compression stockings as told by your health care provider. These stockings help to prevent blood clots and reduce swelling in your legs. It is important that these are the correct size. These stockings should be prescribed by your doctor to prevent possible injuries. ??? If elastic bandages or wraps are recommended, use them as told by your health care provider. Medicines ??? Take mjtg-mzk-yzoktoq and prescription medicines only as told by your health care provider. ??? Your health care provider may prescribe medicine to help your body get rid of excess water (diuretic). Take this medicine if you are told to take it. General instructions ??? Eat a low-salt (low-sodium) diet as told by your health care provider. Sometimes, eating less salt may reduce swelling. ??? Pay attention to any changes in your symptoms. ??? Moisturize your skin daily to help prevent skin from cracking and draining. ??? Keep all follow-up visits. This is important. Contact a health care provider if: ??? You have a fever. ??? You have swelling in only one leg. ??? You have increased swelling, redness, or pain in one or both of your legs. ??? You have drainage or sores at the area where you have edema. Get help right away if: ??? You have edema that starts suddenly or is getting worse, especially if you are or havea medical condition. ??? You develop shortness of breath, especially when you are lying down. ??? You have pain in your chest or abdomen. ??? You feel weak. ??? You feel like you will faint. These symptoms may be an emergency. Get help right away. Call 911. ??? Do not wait to see if the symptoms will go away. ??? Do not drive yourself to the hospital. Summary ??? Peripheral edema is swelling that is caused by a buildup of fluid. Peripheral edema most often affects the lower legs, ankles, and feet. ??? Move around often to prevent stiffness and to reduce swelling. Do not sit or stand for long periods of time. ??? Pay attention to any changes in your symptoms. ??? Contact a health care provider if you have edema that starts suddenly or is getting worse, especially if you are or have a medical condition. ??? Get help right away if you develop shortness of breath, especially when lying down. This information is not intended to replace advice given to you by your health care provider. Make sure you discuss any questions you have with your health care provider. Document Revised: 11/13/2021 Document Reviewed: 11/13/2021 [employer] Patient Education ? 2023 [employer]. Pharmacology Drug Allergy A drug allergy happens when the body's disease-fighting system (immune system) reacts badly to a medicine. Drug allergies range from mild to severe. A drug allergy is not the same as a medicine side effect, which is a known possible reaction to the drug. A drug allergy is also different from medicine toxicity caused by an overdose of the drug. The time of an allergic reaction varies. Symptoms often appear between 1 to 2 hours after taking the medicine; however, some allergic reactions occur 1 week or more after you are exposed to a medicine (delayed reaction). A sudden (acute), severe allergic reaction that affects multiple areas of the body is called an anaphylactic reaction (anaphylaxis). Anaphylaxis can be life- threatening. All allergic reactions to a medicine require medical evaluation, even if the allergic reaction appears to bemild. What are the causes? This condition is caused by t (more content not included)...[facility]04-28-2025 Evaluation + Plan noteExtracted from:Title:ED NoteAuthor:Nikhil Tubbs DODate:07/20/24 Peripheral edema (R60.0: Loc alized edema) Orders: B-Type Natriuretic Peptide Basic Metabolic Panel CBC w/ Auto Diff ED Cardiac Monitoring eGFR Oxygen Saturation Oxygen Therapy PT & PTT Saline Lock Insert Troponin 0 Hr. Troponin 1 Hr. XR Chest Single View Future Appointments Appointment Date:07/21/2024 09:40:00 AM Scheduled Provider:FLOR JONES Location:[facility] Appointment Type: Open Appointment Date:10/13/2024 11:00:00 AM Scheduled Provider:FLOR JONES Location:[facility] Appointment Type:[facility] 04-20-2025 Hospital Discharge instructions Patient Education 07/12/2024 15:33:41 Lumbar Strain Lumbar Strain A lumbar strain, which is sometimes called a low-back strain, is a stretch or tear in a muscle or tendons in the lower back (lumbar spine). Tendons are the strong cords of tissue that attach muscle to bone. This type of injury occurs when muscles or tendons are torn or are stretched beyond their limits. Lumbar strains can range from mild to severe. Mild strains may involve stretching a muscle or tendon without tearing it. These may heal in 1 2 weeks. More severe strains involve tearing of muscle fibers or tendons. These will cause more pain and may take 6 8 weeks to heal. What are the causes? This condition may be caused by: Trauma, such as a fall or a hit to the body. Twisting or overstretching the back. This may result from doing activities that take a lot of energy, such as lifting heavy objects. What increases the risk? A lumbar strain is more common in: Athletes. People with obesity. People who do repeated lifting, bending, or other movements that involve their back. What are the signs or symptoms? Symptoms of this condition may include: Sharp or dull pain in the lower back that does not go away. The pain may spread to the buttocks. Stiffness or limited range of motion. Sudden muscle tightening (spasms). How is this diagnosed? This condition may be diagnosed based on: Your symptoms. Your medical history. A physical exam. Imaging tests, such as: ?X-rays. ?MRI. How is this treated? Treatment for this condition may include: Rest. Applying heat and cold to the affected area. Mrsf-zve-ajkvtgx medicines to help with pain and inflammation, such as NSAIDs. Prescription medicine for pain or to relax the muscles. These may be needed for a short time. Physical therapy exercises to improve movement and strength. Follow these instructions at home: Managing pain, stiffness, and swelling If told, put ice on the injured area during the first 24 hours after your injury. ?Put ice in a plastic bag. ?Place a towel between your skin and the bag. ?Leave the ice on for 20 minutes, 2 3 times a day. If told, apply heat to the [...] feel pain, heat, or cold. Activity Rest and return to your normal activities as told by your health care provider. Ask your health care provider what activities are safe for you. Do exercises as told by your health care provider. General instructions Take jesf-lre-ausxppg and prescription medicines only as told by your health care provider. Ask your health care provider if the medicine prescribed to you: ?Requires you to avoid driving or using machinery. ?Can cause constipation. You may need to take these actions to prevent or treat constipation: ?Drink enough fluid to keep your urine pale yellow. ?Take eydc-phh-pcpzsyx or prescription medicines. ?Eat foods that are high in fiber, such as beans, whole grains, and fresh fruits and vegetables. ?Limit foods that are high in fat and processed sugars, such as fried or sweet foods. Do not use any products that contain nicotine or tobacco. These products include cigarettes, chewing tobacco, and vaping devices, such as e-cigarettes. If you need help quitting, ask your health careprovider. How is this prevented? To prevent a future low-back injury: Always warm up properly before physical activity or sports. Cool down and stretch after being active. Use correct form when playing sports and lifting heavy objects. Bend your knees before you lift heavy objects. Use good posture when sitting and standing. Stay physically fit and keep a healthy weight. ?Do at least 150 minutes of moderate intensity exercise each week, such as brisk walking or water aerobics. ?Do strength exercises at least 2 times each week. Contact a health care provider if: Your back pain does not improve after several weeks of treatment. Your symptoms get worse. You have a fever. Get help right away if: Your back pain is severe. You are unable to stand or walk. You develop pain in your legs. You have weakness in your buttocks or legs. You have trouble controlling when you urinate or when you have a bowel movement. You have frequent, painful, or bloody urination. This information is not intended to replace advice given to you by your health care provider. Make sure you discuss any questions you have with your health care provider. Document Revised: 10/02/2022 Document Reviewed: 10/02/2022 [employer] Patient Education 2023 [employer]. Follow Up Care 07/12/2024 13:13:05 With:KRISTAN LAU Address:Unknown When:Within 3 Day(s) [facility] 04-20-2025 NoteED Patient Education Note Orthopedics Lumbar Strain A lumbar strain, which is sometimes called a low-back strain, is a stretch or tear in a muscle or tendons in the lower back (lumbar spine). Tendons are the strong cords of tissue that attach muscle to bone. This type of injury occurs when muscles or tendons are torn or are stretched beyond their limits. Lumbar strains can range from mild to severe. Mild strains may involve stretching a muscle or tendon without tearing it. These may heal in 1?2 weeks. More severe strains involve tearing of muscle fibers or tendons. These will cause more pain and may take 6?8 weeks to heal. What are the causes? This condition may be caused by: ??? Trauma, such as a fall or a hit to the body. ??? Twisting or overstretching the back. This may result from doing activities that take a lot of energy, such as lifting heavy objects. What increases the risk? A lumbar strain is more common in: ??? Athletes. ??? People with obesity. ??? People who do repeated lifting, bending, or other movements that involve their back. What are the signs or symptoms? Symptoms of this condition may include: ??? Sharp or dull pain in the lower back that does not go away. The pain may spread to the buttocks. ??? Stiffness or limited range of motion. ??? Sudden muscle tightening (spasms). How is this diagnosed? This condition may be diagnosed based on: ??? Your symptoms. ??? Your medical history. ??? A physical exam. ??? Imaging tests, such as: ? X-rays. ? MRI. How is this treated? Treatment for this condition may include: ??? Rest. ??? Applying heat and cold to the affected area. ??? Umdm-nbk-rphzrwi medicines to help with pain and inflammation, such as NSAIDs. ??? Prescription medicine for pain or to relax the muscles. These may be needed for a short time. ??? Physical therapy exercises to improve movement and strength. Follow these instructions at home: Managing pain, stiffness, and swelling ??? If told, put ice on the injured area during the first 24 hours after your injury. ? Put ice in a plastic bag. ? Place a towel between your skin and the bag. ? Leave the ice on for 20 minutes, 2?3 times a day. ??? If told, apply heat to [...] cannot feel pain, heat, or cold. Activity ??? Rest and return to your normal activities as told by your health care provider. Ask your healthcare provider what activities are safe for you. ??? Do exercises as told by your health care provider. General instructions ??? Take cvsn-use-pxymtzh and prescription medicines only as told by your health care provider. ??? Ask your health care provider if the medicine prescribed to you: ? Requires you to avoid driving or using machinery. ? Can cause constipation. You may need to take these actions to prevent or treat constipation: ? Drink enough fluid to keep your urine pale yellow. ? Take ajck-bla-qqzsohe or prescription medicines. ? Eat foods that are high in fiber, such as beans, whole grains, and fresh fruits and vegetables. ? Limit foods that are high in fat and processed sugars, such as fried or sweet foods. ??? Do not use any products that contain nicotine or tobacco. These products include cigarettes, chewing tobacco, and vaping devices, such as e-cigarettes. If you need help quitting, ask your health care provider. How is this prevented? To prevent a future low-back injury: ??? Always warm up properly before physical activity or sports. ??? Cool down and stretch after being active. ??? Use correct form when playing sports and lifting heavy objects. Bend your knees before you liftheavy objects. ??? Use good posture when sitting and standing. ??? Stay physically fit and keep a healthy weight. ? Do at least 150 minutes of moderate intensity exercise each week, such as brisk walking or water aerobics. ? Do strength exercises at least 2 times each week. Contact a health care provider if: ??? Your back pain does not improve after several weeks of treatment. ??? Your symptoms get worse. ??? You have a fever. Get help right away if: ??? Your back pain is severe. ??? You are unable to stand or walk. ??? You develop pain in your legs. ??? You have weakness in your buttocks or legs. ??? You have trouble controlling when you urinate or when you have a bowel movement. ??? You have frequent, painful, or bloody urination. This information is not intended to replace advice given to you by your (more content not included)...[facility]04-20-2025 Evaluation + Plan noteExtracted from:Title:ED NoteAuthor:Gera MILES, Kristie Hugo.Date:07/12/24 1. Acute lumbar myofascial s train (S39.012A: Strain of muscle, fascia and tendon of lower back, initial encounter) Orders: ketorolac, 60 mg = 2 mL, Injection, IntraMuscular, Once, Stop date 07/12/24 15:09:00 EDT, STAT, Start date 07/12/24 15:09:00 EDT, 07/12/24 15:09:00 EDT morphine, 4 mg = 1 mL, Injection, IntraMuscular, Once, Stop date 07/12/24 15:09:00 EDT, STAT, Startdate 07/12/24 15:09:00 EDT, 07/12/24 15:09:00 EDT Future Appointments Appointment Date:07/15/2024 08:40:00 AM Scheduled Provider:FLOR JONES Location:[facility] Appointment Type: Open Future Scheduled Tests Laboratory* TSH With T4fr Reflex 07/17/23 * Urinalysis with Micro 07/17/23 * Lipid Panel 07/17/23 * Drug Screen Urine 07/17/23 Radiology* MA Mamm Screen w/CAD if perf and 3D Kenan 07/17/23 [facility] 04-20-20[facility] [place] [address] [place] [address] CT Scan Report Signed Patient: Jerad Tracy MR#: [id number] : 1975 Acct:[id number] Age/Sex: 49 / F ADM Date: 5 Loc: ER Room: Type: [facility] ER Attending Dr: Copies to: Mora Veliz MD~ Ordering Provider: Mora Veliz MD Date of Service: 07/11/24 CT/CT abdomen pelvis w con: Abdominal pain CT ABDOMEN AND PELVIS WITH INTRAVENOUS CONTRAST: CLINICAL HISTORY: Right upper quadrant pain and vomiting diarrhea since last night. COMPARISON: None TECHNIQUE: Spiral images were obtained through the abdomen and pelvis followingthe administration of intravenous contrast. This CT exam was performed using one or more following dose reduction techniques: Automated exposure control, adjustment of the mA and/or kV according to patient size, or use of iterative reconstruction technique. FINDINGS: Lung Bases: [No acute findings.] Organs:Gallbladder has been removed. Liver portal vein pancreas and spleen all appear unremarkable.Nodular thickening involving the adrenal glands similar tothe prior study. No enhancing renal mass or hydronephrosis. Aorta appears normal in caliber.[ GI: Stomach is grossly unremarkable. Small bowel appears nondilated. No acute colonic abnormality.[ Pelvis:[Urinary bladder is grossly unremarkable. Uterus has been removed. No adnexal mass.] Peritoneum/Retroperitoneum:No free air or free fluid or lymphadenopathy.[ Abd wall/Bones:Abdominal wall demonstrates no acute findings. Osseous structures demonstrate degenerative change.[ CT/CT abdomen pelvis w con IMPRESSION: No acute process. Impression dictated by: Johan Velazquez Jr., D.O.07/12/2024 9:52 AM Dictation Location: [facility] Transcribed By: BRYCE 07/12/24 0952 Dictated By: Johan Velazquez Jr, DO 07/12/24 0945 Signed By: 07/12/24 0952 [facility]04-16-2025 Hospital Discharge instructions* Discharge Instructions* Lynn Salas MD - 07/08/2024 4:55 PM EDT All of your pain medication we will need to come from pain management, your primary care provider, or you are surgeon. * Attachments The following attachments cannot be sent through Care Everywhere. * Low Back Pain: General Info (Malagasy) * Back Pain (Malagasy) * Back Pain: 5 Ways to Take Care of Yourself: Video (Malagasy) documented [facility] Emergency department Note* Lynn Salas MD - 07/08/2024 4:46 PM EDT Emergency Room Note [facility] EMERGENCY DEPARTMENT Service Date:.07/08/24 PCP: No primary care provider on file. Chief Complaint: Chief Complaint Patient presents with Back Pain Patient states I had an appointment today for my back pain and the car ride here just made my back hurt to back to ride back home. RENETTA Tracy is a 49 y.o. female presents to the ED today due to low back pain. Patient has chronic low back pain. States she came here to the hospital for an appointment to see Dr. Poe. She states that the car ride has caused exacerbation of her chronic low back pain. She ishere asking for a shot of a narcotic to relieve the pain so she can ride home. Review of Systems: Review of Systems She has no focal weakness. No paresthesias. No loss of bowel or bladder control. She empties her bladder when she voids. She has no recent falls or trauma. She is a established the pain management and has follow up next week. Past Medical History: No past medical history on file. Past Surgical History: Past Surgical History: Procedure Laterality Date BACK SURGERY BUNIONECTOMY Bilateral DENTAL IMPLANT HYSTERECTOMY INSERTION EAR TUBE REMOVAL BILIARY DUCT/GALLBLADDER CALCULI/DEBRIS PERCUTANEOUS W/ IMAGE TONSILLECTOMY ADENOIDECTOMY Allergies: Allergies Allergen Reactions Hydrocodone Penicillins Tylenol [Acetaminophen] Medications: Patient's Medications New Prescriptions No medications on file Previous Medications CYCLOBENZAPRINE 10 MG TABLET Take 1 tablet by mouth 3 times daily as needed for Muscle spasms. DULOXETINE [address] PARTICLES CAPSULE DR Take 20 mg by mouth daily. HYDROXYZINE HCL 25 MG TABLET Take 1 tablet by mouth 3 times daily as needed for Anxiety. IBUPROFEN 400 MG TABLET Take 2 tablets by mouth every 6 hours as needed for Mild Pain. Modified Medications No medications on file Discontinued Medications No medications on file Family History: History reviewed. No pertinent family history. Social History: Social History Socioeconomic History Marital status: Spouse name: Not on file Number of children: Not on file Years of education: Not on file Highest education level: Not on file Occupational History Not on file Tobacco Use Smoking status: Every Day Current packs/day: 0.50 Types: Cigarettes Smokeless tobacco: Never Vaping Use Vaping status: Never Used Substance and Sexual Activity Alcohol use: Never Drug use: Never Sexual activity: Not on file Other Topics Concern Not on file Social History Narrative Not on file Social Drivers of Health Financial Resource Strain: Low Risk (06/12/2024) Received from [facility] Overall Financial Resource Strain (CARDIA) Difficulty of Paying Living Expenses: Not hard at all Food Insecurity: No Food Insecurity (06/12/2024) Received from [facility] Hunger Vital Sign Worried About Running Out of Food in the Last Year: Never true Ran Out of Food in the Last Year: Never true Transportation Needs: No Transportation Needs (06/12/2024) Received from [facility] PRAPARE - Transportation Lack of Transportation (Medical): No Lack of Transportation (Non-Medical): No Physical Activity: Inactive (06/12/2024) Received from [facility] Exercise Vital Sign Days of Exercise per Week: 0 days Minutes of Exercise per Session: 0 min Stress: No Stress Concern Present (06/12/2024) Received from [facility] [employer] [place] [employer] - Occupational Stress Questionnaire Feeling of Stress : Not at all Recent Concern: Stress - Stress Concern Present (04/02/2024) Received from [facility] [place] [employer] - Occupational Stress Questionnaire Feeling of Stress : Rather much Social Connections: Socially Isolated (06/12/2024) Received from [facility] Social Connection and Isolation Panel [NHANES] Frequency of Communication with Friends and Family: More than three times a week Frequency of Social Gatherings with Friends and Family: Twice a week Attends Orthodox Services: Never Active Member of Clubs or Organizations: No Attends Club or Organization Meetings: Never Marital Status: Personal Safety: Not At Risk (06/12/2024) Received from [facility] Humiliation, Afraid, Rape, and Kick questionnaire Fear of Current or Ex-Partner: No Emotionally Abused: No Physically Abused: No Sexually Abused: No Housing Stability: Low Risk (06/12/2024) Received from [facility] Housing Stability Vital Sign Unable to Pay for Housing in the Last Year: No Number of Times Moved in the Last Year: 0 Homeless in the Last Year: No Physical Exam: Physical Exam Obese 49-year-old female who is awake and alert. She is speaking in full sentences. She is ambulatory without difficulty. She is able to stand on her toes. She is moving around without difficulty in the emergency department. She is slightly hypertensive but the remainder of the vital signs are stable. Skin is warm and dry and well-perfused. She speaks in full sentences and has no respiratory difficulty. Moves all 4 extremities on command with good muscle tone and strength. Vital Signs During ED Visit Patient Vitals for the past 24 hrs: BP Temp Pulse Resp SpO2 Height Weight 07/08/24 1640 (!) 170/94 98.8 F (37.1 C) 96 18 96 % 1.6 m (5' 3 ) 117.9 kg (260 lb) Orders/Results: No orders of the defined types were placed in this encounter. No results found for this or any previous visit. Radiographic Imaging No orders to display Procedures: Procedures Moderate Sedation Procedure: No ED Summary/MDM I did explain to this patient that she has chronic pain and is in pain management. She is on chronic narcotic analgesics at home. I can not add 2 or change her off the pain medications. I am not comfortable just giving her injections of narcotics here and discharged her. She needs to follow up withthe pain management or her primary care provider for all her analgesic medications. The patient wasdischarged from the emergency department in stable condition. Clinical Impression: 1. Chronic bilateral low back pain, unspecified whether sciatica present No follow-ups on file. New Prescriptions No medications on file Discontinued Medications No medications on file An After Visit Summary was printed and given to the patient with above information. . Lynn Salas MD 07/08/24 1658 [facility]04-16-2025 Emergency department Note* Lynn Salas MD - 07/08/2024 4:46 PM EDT Emergency Room Note [facility] EM[facility]Y [facility] Service Date:.07/08/24 PCP: No primary care provider on file. Chief Complaint: Chief Complaint Patient presents with Back Pain Patient states I had an appointment today for my back pain and the car ride here just made my back hurt to back to ride back home. RENETTA Tracy is a 49 y.o. female presents to the ED today due to low back pain. Patient has chronic low back pain. States she came here to the hospital for an appointment to see Dr. Poe. She states that the car ride has caused exacerbation of her chronic low back pain. She ishere asking for a shot of a narcotic to relieve the pain so she can ride home. Review of Systems: Review of Systems She has no focal weakness. No paresthesias. No loss of bowel or bladder control. She empties her bladder when she voids. She has no recent falls or trauma. She is a established the pain management and has follow up next week. Past Medical History: No past medical history on file. Past Surgical History: Past Surgical History: Procedure Laterality Date BACK SURGERY BUNIONECTOMY Bilateral DENTAL IMPLANT HYSTERECTOMY INSERTION EAR TUBE REMOVAL BILIARY DUCT/GALLBLADDER CALCULI/DEBRIS PERCUTANEOUS W/ IMAGE TONSILLECTOMY ADENOIDECTOMY Allergies: Allergies Allergen Reactions Hydrocodone Penicillins Tylenol [Acetaminophen] Medications: Patient's Medications New Prescriptions No medications on file Previous Medications CYCLOBENZAPRINE 10 MG TABLET Take 1 tablet by mouth 3 times daily as needed for Muscle spasms. DULOXETINE [address] PARTICLES CAPSULE DR Take 20 mg by mouth daily. HYDROXYZINE HCL 25 MG TABLET Take 1 tablet by mouth 3 times daily as needed for Anxiety. IBUPROFEN 400 MG TABLET Take 2 tablets by mouth every 6 hours as needed for Mild Pain. Modified Medications No medications on file Discontinued Medications No medications on file Family History: History reviewed. No pertinent family history. Social History: Social History Socioeconomic History Marital status: Spouse name: Not on file Number of children: Not on file Years of education: Not on file Highest education level: Not on file Occupational History Not on file Tobacco Use Smoking status: Every Day Current packs/day: 0.50 Types: Cigarettes Smokeless tobacco: Never Vaping Use Vaping status: Never Used Substance and Sexual Activity Alcohol use: Never Drug use: Never Sexual activity: Not on file Other Topics Concern Not on file Social History Narrative Not on file Social Drivers of Health Financial Resource Strain: Low Risk (06/12/2024) Received from [facility] Overall Financial Resource Strain (CARDIA) Difficulty of Paying Living Expenses: Not hard at all Food Insecurity: No Food Insecurity (06/12/2024) Received from [facility] Hunger Vital Sign Worried About Running Out of Food in the Last Year: Never true Ran Out of Food in the Last Year: Never true Transportation Needs: No Transportation Needs (06/12/2024) Received from [facility] PRAPARE - Transportation Lack of Transportation (Medical): No Lack of Transportation (Non-Medical): No Physical Activity: Inactive (06/12/2024) Received from [facility] Exercise Vital Sign Days of Exercise per Week: 0 days Minutes of Exercise per Session: 0 min Stress: No Stress Concern Present (06/12/2024) Received from [facility] [place] [employer] - Occupational Stress Questionnaire Feeling of Stress : Not at all Recent Concern: Stress - Stress Concern Present (04/02/2024) Received from [facility] [place] [employer] - Occupational Stress Questionnaire Feeling of Stress : Rather much Social Connections: Socially Isolated (06/12/2024) Received from [facility] Social Connection and Isolation Panel [NHANES] Frequency of Communication with Friends and Family: More than three times a week Frequency of Social Gatherings with Friends and Family: Twice a week Attends Orthodox Services: Never Active Member of Clubs or Organizations: No Attends Club or Organization Meetings: Never Marital Status: Personal Safety: Not At Risk (06/12/2024) Received from [facility] Humiliation, Afraid, Rape, and Kick questionnaire Fear of Current or Ex-Partner: No Emotionally Abused: No Physically Abused: No Sexually Abused: No Housing Stability: Low Risk (06/12/2024) Received from [facility] Housing Stability Vital Sign Unable to Pay for Housing in the Last Year: No Number of Times Moved in the Last Year: 0 Homeless in the Last Year: No Physical Exam: Physical Exam Obese 49-year-old female who is awake and alert. She is speaking in full sentences. She is ambulatory without difficulty. She is able to stand on her toes. She is moving around without difficulty in the emergency department. She is slightly hypertensive but the remainder of the vital signs are stable. Skin is warm and dry and well-perfused. She speaks in full sentences and has no respiratory difficulty. Moves all 4 extremities on command with good muscle tone and strength. Vital Signs During ED Visit Patient Vitals for the past 24 hrs: BP Temp Pulse Resp SpO2 Height Weight 07/08/24 1640 (!) 170/94 98.8 F (37.1 C) 96 18 96 % 1.6 m (5' 3 ) 117.9 kg (260 lb) Orders/Results: No orders of the defined types were placed in this encounter. No results found for this or any previous visit. Radiographic Imaging No orders to display Procedures: Procedures Moderate Sedation Procedure: No ED Summary/MDM I did explain to this patient that she has chronic pain and is in pain management. She is on chronic narcotic analgesics at home. I can not add 2 or change her off the pain medications. I am not comfortable just giving her injections of narcotics here and discharged her. She needs to follow up withthe pain management or her primary care provider for all her analgesic medications. The patient wasdischarged from the emergency department in stable condition. Clinical Impression: 1. Chronic bilateral low back pain, unspecified whether sciatica present No follow-ups on file. New Prescriptions No medications on file Discontinued Medications No medications on file An After Visit Summary was printed and given to the patient with above information. . Lynn Salas MD 07/08/24 0055 documented in this encounterProtest[facility]04-[facility] Hospital Discharge instructions* Discharge Instructions* Nilesh Reyes MD - 07/07/2024 2:11 AM EDT We unfortunately do not have a lot of else to offer from an emergency department perspective at this time. Please follow-up closely with neurosurgery and pain management as previously scheduled. Please continue your home pain medications documented [facility]Un[facility] Work Phone: [phone] [phone] Emergency department Triage note* Terri Jacobs RN - 07/06/2024 7:12 PM EDT Patient presents to the ED for lower back and left leg numbness that started yesterday. Patient states she has a herniated bulging disc at L4-L5. Patient has loss of bladder control x2 times. [facility]04-14-2025 Emergency department Note* Terri Jacobs RN - 07/06/2024 7:12 PM EDT Patient presents to the ED for lower back and left leg numbness that started yesterday. Patient states she has a herniated bulging disc at L4-L5. Patient has loss of bladder control x2 times. [facility] Work Phone: [phone] 772-525404-13-2025 Hospital Discharge instructions Patient Education 07/05/2024 19:47:12 Lumbar Strain Lumbar Strain A lumbar strain, which is sometimes called a low-back strain, is a stretch or tear in a muscle or tendons in the lower back (lumbar spine). Tendons are the strong cords of tissue that attach muscle to bone. This type of injury occurs when muscles or tendons are torn or are stretched beyond their limits. Lumbar strains can range from mild to severe. Mild strains may involve stretching a muscle or tendon without tearing it. These may heal in 1 2 weeks. More severe strains involve tearing of muscle fibers or tendons. These will cause more pain and may take 6 8 weeks to heal. What are the causes? This condition may be caused by: Trauma, such as a fall or a hit to the body. Twisting or overstretching the back. This may result from doing activities that take a lot of energy, such as lifting heavy objects. What increases the risk? A lumbar strain is more common in: Athletes. People with obesity. People who do repeated lifting, bending, or other movements that involve their back. What are the signs or symptoms? Symptoms of this condition may include: Sharp or dull pain in the lower back that does not go away. The pain may spread to the buttocks. Stiffness or limited range of motion. Sudden muscle tightening (spasms). How is this diagnosed? This condition may be diagnosed based on: Your symptoms. Your medical history. A physical exam. Imaging tests, such as: ?X-rays. ?MRI. How is this treated? Treatment for this condition may include: Rest. Applying heat and cold to the affected area. Hmwi-grf-pyfwbqx medicines to help with pain and inflammation, such as NSAIDs. Prescription medicine for pain or to relax the muscles. These may be needed for a short time. Physical therapy exercises to improve movement and strength. Follow these instructions at home: Managing pain, stiffness, and swelling If told, put ice on the injured area during the first 24 hours after your injury. ?Put ice in a plastic bag. ?Place a towel between your skin and the bag. ?Leave the ice on for 20 minutes, 2 3 times a day. If told, apply heat to the [...] feel pain, heat, or cold. Activity Rest and return to your normal activities as told by your health care provider. Ask your health care provider what activities are safe for you. Do exercises as told by your health care provider. General instructions Take vfpz-aha-uvoqsab and prescription medicines only as told by your health care provider. Ask your health care provider if the medicine prescribed to you: ?Requires you to avoid driving or using machinery. ?Can cause constipation. You may need to take these actions to prevent or treat constipation: ?Drink enough fluid to keep your urine pale yellow. ?Take fdpz-pbr-lptgbee or prescription medicines. ?Eat foods that are high in fiber, such as beans, whole grains, and fresh fruits and vegetables. ?Limit foods that are high in fat and processed sugars, such as fried or sweet foods. Do not use any products that contain nicotine or tobacco. These products include cigarettes, chewing tobacco, and vaping devices, such as e-cigarettes. If you need help quitting, ask your health careprovider. How is this prevented? To prevent a future low-back injury: Always warm up properly before physical activity or sports. Cool down and stretch after being active. Use correct form when playing sports and lifting heavy objects. Bend your knees before you lift heavy objects. Use good posture when sitting and standing. Stay physically fit and keep a healthy weight. ?Do at least 150 minutes of moderate intensity exercise each week, such as brisk walking or water aerobics. ?Do strength exercises at least 2 times each week. Contact a health care provider if: Your back pain does not improve after several weeks of treatment. Your symptoms get worse. You have a fever. Get help right away if: Your back pain is severe. You are unable to stand or walk. You develop pain in your legs. You have weakness in your buttocks or legs. You have trouble controlling when you urinate or when you have a bowel movement. You have frequent, painful, or bloody urination. This information is not intended to replace advice given to you by your health care provider. Make sure you discuss any questions you have with your health care provider. Document Revised: 10/02/2022 Document Reviewed: 10/02/2022 [employer] Patient Education 2023 [employer]. 07/05/2024 19:47:12 Acute Back Pain, Adult Acute Back Pain, [...] home: Managing pain, stiffness, and swelling Take cfai-nkj-dhcbebk and prescription medicines only as told by [...] each day. 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 Take vhnl-ztr-meigsbu and prescription medicines only as told by your health care provider, and apply heat or ice as told. This information is not intended to replace advice given to you by your health care provider. Make sure you discuss any questions you have with your health care provider. Document Revised: 06/02/2021 Document Reviewed: 06/02/2021 [email or web address] Patient Education 2023 [employer]. Follow Up Care 07/05/2024 19:14:14 With:KRISTAN LAU Address:Unknown When:07/08/2024 19:29:43 [facility] 04-13-2025 NoteED Patient Education Note Orthopedics Lumbar Strain A lumbar strain, which is sometimes called a low-back strain, is a stretch or tear in a muscle or tendons in the lower back (lumbar spine). Tendons are the strong cords of tissue that attach muscle to bone. This type of injury occurs when muscles or tendons are torn or are stretched beyond their limits. Lumbar strains can range from mild to severe. Mild strains may involve stretching a muscle or tendon without tearing it. These may heal in 1?2 weeks. More severe strains involve tearing of muscle fibers or tendons. These will cause more pain and may take 6?8 weeks to heal. What are the causes? This condition may be caused by: ??? Trauma, such as a fall or a hit to the body. ??? Twisting or overstretching the back. This may result from doing activities that take a lot of energy, such as lifting heavy objects. What increases the risk? A lumbar strain is more common in: ??? Athletes. ??? People with obesity. ??? People who do repeated lifting, bending, or other movements that involve their back. What are the signs or symptoms? Symptoms of this condition may include: ??? Sharp or dull pain in the lower back that does not go away. The pain may spread to the buttocks. ??? Stiffness or limited range of motion. ??? Sudden muscle tightening (spasms). How is this diagnosed? This condition may be diagnosed based on: ??? Your symptoms. ??? Your medical history. ??? A physical exam. ??? Imaging tests, such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 History: Past Surgical History: Procedure Laterality Date BACK SURGERY BUNIONECTOMY Bilateral DENTAL IMPLANT HYSTERECTOMY INSERTION EAR TUBE REMOVAL BILIARY DUCT/GALLBLADDER CALCULI/DEBRIS PERCUTANEOUS W/ IMAGE TONSILLECTOMY ADENOIDECTOMY Allergies: Allergies Allergen Reactions Hydrocodone Penicillins Tylenol [Acetaminophen] Medications: Discharge Medication List as of 06/20/2024 2:08 PM CONTINUE these medications which have NOT CHANGED Details Cyclobenzaprine 10 MG tablet Take 1 tablet by mouth 3 times daily as needed for Muscle spasms. Historical Med DULoxetine [address] Particles capsule DR Take 20 mg by mouth daily. Historical Med hydrOXYzine HCl 25 MG tablet Take 1 tablet by mouth 3 times daily as needed for Anxiety. HistoricalMed Ibuprofen 400 MG tablet Take 2 tablets by mouth every 6 hours as needed for Mild Pain. Historical Med Family History: No family history on file. Social History: Social History Socioeconomic History Marital status: Spouse name: Not on file Number of children: Not on file Years of education: Not on file Highest education level: Not on file Occupational History Not on file Tobacco Use Smoking status: Every Day Current packs/day: 0.50 Types: Cigarettes Smokeless tobacco: Never Vaping Use Vaping status: Never Used Substance and Sexual Activity Alcohol use: Never Drug use: Never Sexual activity: Not on file Other Topics Concern Not on file Social History Narrative Not on file Social Drivers of Health Financial Resource Strain: Low Risk (06/12/2024) Received from [facility] Overall Financial Resource Strain (CARDIA) Difficulty of Paying Living Expenses: Not hard at all Food Insecurity: No Food Insecurity (06/12/2024) Received from [facility] Hunger Vital Sign Worried About Running Out of Food in the Last Year: Never true Ran Out of Food in the Last Year: Never true Transportation Needs: No Transportation Needs (06/12/2024) Received from [facility] PRAPARE - Transportation Lack of Transportation (Medical): No Lack of Transportation (Non-Medical): No Physical Activity: Inactive (06/12/2024) Received from [facility] Exercise Vital Sign Days of Exercise per Week: 0 days Minutes of Exercise per Session: 0 min Stress: No Stress Concern Present (06/12/2024) Received from [facility] - Occupational Stress Questionnaire Feeling of Stress : Not at all Recent Concern: Stress - Stress Concern Present (04/02/2024) Received from [facility] Occupational Health - Occupational Stress Questionnaire Feeling of Stress : Rather much Social Connections: Socially Isolated (06/12/2024) Received from [facility] Social Connection and Isolation Panel [NHANES] Frequency of Communication with Friends and Family: More than three times a week Frequency of Social Gatherings with Friends and Family: Twice a week Attends Orthodox Services: Never Active Member of Clubs or Organizations: No Attends Club or Organization Meetings: Never Marital Status: Personal Safety: Not At Risk (06/12/2024) Received from [facility] Humiliation, Afraid, Rape, and Kick questionnaire Fear of Current or Ex-Partner: No Emotionally Abused: No Physically Abused: No Sexually Abused: No Housing Stability: Low Risk (06/12/2024) Received from [facility] Housing Stability Vital Sign Unable to Pay for Housing in the Last Year: No Number of Times Moved in the Last Year: 0 Homeless in the Last Year: No Physical Exam: Physical Exam Obese 49-year-old female who is awake and alert and speaking in full sentences. No signs of trauma HEENT exam. No tenderness over the posterior cervical spine. Good range motion neck without difficulty or discomfort. Well-healed scar midline low lumbar area. She has no tenderness over thoracic area. She is markedly tender to palpation just touching the skin mid to lower lumbar paraspinous musculature bilaterally and states this recreates her pain. No erythema or warmth. No swelling. She was nottender over the SI joints. Pain exacerbated with flexion and extension as well as rotation of the trunk. She is able to get up and ambulate. She can stand on her toes. She do partial knee bend and stand back up. She has good strength and sensation in the lower extremities. Posterior tibial pulses symmetrical. Cap refill is brisk distally. Neuro vasculature is intact in the lower extremities. Vital Signs During ED Visit Patient Vitals for the past 24 hrs: BP Temp Pulse Resp SpO2 06/20/24 1408 177/85 -- 97 19 98 % 06/20/24 1245 (!) 135/93 97.9 F (36.6 C) 100 18 98 % Orders/Results: Orders Placed This Encounter HYDROmorphone (DILAUDID) injection 1 mg Cyclobenzaprine (FLEXERIL) tablet 10 mg ondansetron (ZOFRAN-ODT) disintegrating tablet 4 mg No results found for this or any previous visit. Radiographic Imaging No orders to display Procedures: Procedures Moderate Sedation Procedure: No ED Summary/MDM Patient presents with the acute exacerbation of the chronic low back pain secondary to riding in the car. States she wants go over and get her outpatient x-rays done which were ordered. I will treat her with a 1 time dose of analgesics and discharge her so that she can go get her outpatient x-rays done. Otherwise follow up with the primary care provider and Dr. Poe. She voiced understanding and agreement with this and was thankful. She was discharged in stable condition. Clinical Impression: 1. Chronic bilateral low back pain without sciatica No follow-ups on file. Discharge Medication List as of 06/20/2024 2:08 PM Discharge Medication List as of 06/20/2024 2:08 PM An After Visit Summary was printed and given to the patient with above information. . Lynn Salas MD 06/20/24 1417 documented in this [facility]03-29-2025 Hospital Discharge instructions* Discharge Instructions* Lynn Salas MD - 06/20/2024 2:06 PM EDT Go get your x-rays done which were ordered by Dr. Poe. Call his office Saturday morning and arrange to be seen this week. Follow up with your primary care provider this week. Call them Saturday morning to schedule as well. Go to closest ER if you have any other questions or concerns, or feel worse in any way. * Attachments The following attachments cannot be sent through Care Everywhere. * Low Back Pain: General Info (Malagasy) * Low Back Pain: Keep Moving: Video (Malagasy) [facility] Emergency department Note* Lynn Salas MD - 06/20/2024 1:44 PM EDT Emergency Room Note [facility] EMERGENCY DEPARTMENT Service Date:.06/20/24 PCP: No primary care provider on file. Chief Complaint: Chief Complaint Patient presents with Back Pain States she has an order for xray from Dr. Poe but coming in to get something for the pain. Took 800mg Motrin at 8am. HPI Jerad Tracy is a 49 y.o. female presents to the ED today due to low back pain. Patient has history of chronic low back pain. She is on chronic narcotic analgesics. She last filled oxycodone 5 mg tablets on June 14, 2024. She filled 15 tablets for a 4 day supply. States she is here today because she has outpatient orders for x-rays of the back from Dr. Poe. She states she lives [place]. Status driving here has a exacerbated her back pain. She now has 10/10 pain in the lower back that is worse with movement. She has no paresthesias. States she is able to inferior bladder when she voids. No incontinence. She has no focal weakness. No paresthesias. States it is very typical of her chronic back pain but it was just greatly exacerbated from riding in the car [place]. She wants to be able to go get the x-rays done and states she is going to need somethingfor the pain to do that. Review of Systems: Review of Systems No fever or chills. No nausea or vomiting. No upper respiratory complaints. No gastrointestinal complaints. No recent falls or trauma. No rash. She used to have the pain pump in her back but it was removed. She has had previous surgery on the low back which he states did not help. That is why she was going to see Dr. Poe. Past Medical History: No past medical history on file. Past Surgical History: Past Surgical History: Procedure Laterality Date BACK SURGERY BUNIONECTOMY Bilateral DENTAL IMPLANT HYSTERECTOMY INSERTION EAR TUBE REMOVAL BILIARY DUCT/GALLBLADDER CALCULI/DEBRIS PERCUTANEOUS W/ IMAGE TONSILLECTOMY ADENOIDECTOMY Allergies: Allergies Allergen Reactions Hydrocodone Penicillins Tylenol [Acetaminophen] Medications: Discharge Medication List as of 06/20/2024 2:08 PM CONTINUE these medications which have NOT CHANGED Details Cyclobenzaprine 10 MG tablet Take 1 tablet by mouth 3 times daily as needed for Muscle spasms. Historical Med DULoxetine [address] Particles capsule DR Take 20 mg by mouth daily. Historical Med hydrOXYzine HCl 25 MG tablet Take 1 tablet by mouth 3 times daily as needed for Anxiety. HistoricalMed Ibuprofen 400 MG tablet Take 2 tablets by mouth every 6 hours as needed for Mild Pain. Historical Med Family History: No family history on file. Social History: Social History Socioeconomic History Marital status: Spouse name: Not on file Number of children: Not on file Years of education: Not on file Highest education level: Not on file Occupational History Not on file Tobacco Use Smoking status: Every Day Current packs/day: 0.50 Types: Cigarettes Smokeless tobacco: Never Vaping Use Vaping status: Never Used Substance and Sexual Activity Alcohol use: Never Drug use: Never Sexual activity: Not on file Other Topics Concern Not on file Social History Narrative Not on file Social Drivers of Health Financial Resource Strain: Low Risk (06/12/2024) Received from [facility] Overall Financial Resource Strain (CARDIA) Difficulty of Paying Living Expenses: Not hard at all Food Insecurity: No Food Insecurity (06/12/2024) Received from [facility] Hunger Vital Sign Worried About Running Out of Food in the Last Year: Never true Ran Out of Food in the Last Year: Never true Transportation Needs: No Transportation Needs (06/12/2024) Received from [facility] PRAPARE - Transportation Lack of Transportation (Medical): No Lack of Transportation (Non-Medical): No Physical Activity: Inactive (06/12/2024) Received from [facility] Exercise Vital Sign Days of Exercise per Week: 0 days Minutes of Exercise per Session: 0 min Stress: No Stress Concern Present (06/12/2024) Received from [facility] [facility]ational [facility] - Occupational Stress Questionnaire Feeling of Stress : Not at all Recent Concern: Stress - Stress Concern Present (04/02/2024) Received from [facility] Occupational Health - Occupational Stress Questionnaire Feeling of Stress : Rather much Social Connections: Socially Isolated (06/12/2024) Received from [facility] Social Connection and Isolation Panel [NHANES] Frequency of Communication with Friends and Family: More than three times a week Frequency of Social Gatherings with Friends and Family: Twice a week Attends Orthodox Services: Never Active Member of Clubs or Organizations: No Attends Club or Organization Meetings: Never Marital Status: Personal Safety: Not At Risk (06/12/2024) Received from [facility] Humiliation, Afraid, Rape, and Kick questionnaire Fear of Current or Ex-Partner: No Emotionally Abused: No Physically Abused: No Sexually Abused: No Housing Stability: Low Risk (06/12/2024) Received from [facility] Housing Stability Vital Sign Unable to Pay for Housing in the Last Year: No Number of Times Moved in the Last Year: 0 Homeless in the Last Year: No Physical Exam: Physical Exam Obese 49-year-old female who is awake and alert and speaking in full sentences. No signs of trauma HEENT exam. No tenderness over the posterior cervical spine. Good range motion neck without difficulty or discomfort. Well-healed scar midline low lumbar area. She has no tenderness over thoracic area. She is markedly tender to palpation just touching the skin mid to lower lumbar paraspinous musculature bilaterally and states this recreates her pain. No erythema or warmth. No swelling. She was nottender over the SI joints. Pain exacerbated with flexion and extension as well as rotation of the trunk. She is able to get up and ambulate. She can stand on her toes. She do partial knee bend and stand back up. She has good strength and sensation in the lower extremities. Posterior tibial pulses symmetrical. Cap refill is brisk distally. Neuro vasculature is intact in the lower extremities. Vital Signs During ED Visit Patient Vitals for the past 24 hrs: BP Temp Pulse Resp SpO2 06/20/24 1408 177/85 -- 97 19 98 % 06/20/24 1245 (!) 135/93 97.9 F (36.6 C) 100 18 98 % Orders/Results: Orders Placed This Encounter HYDROmorphone (DILAUDID) injection 1 mg Cyclobenzaprine (FLEXERIL) tablet 10 mg ondansetron (ZOFRAN-ODT) disintegrating tablet 4 mg No results found for this or any previous visit. Radiographic Imaging No orders to display Procedures: Procedures Moderate Sedation Procedure: No ED Summary/MDM Patient presents with the acute exacerbation of the chronic low back pain secondary to riding in the car. States she wants go over and get her outpatient x-rays done which were ordered. I will treat her with a 1 time dose of analgesics and discharge her so that she can go get her outpatient x-rays done. Otherwise follow up with the primary care provider and Dr. Poe. She voiced understanding and agreement with this and was thankful. She was discharged in stable condition. Clinical Impression: 1. Chronic bilateral low back pain without sciatica No follow-ups on file. Discharge Medication List as of 06/20/2024 2:08 PM Discharge Medication List as of 06/20/2024 2:08 PM An After Visit Summary was printed and given to the patient with above information. . Lynn Salas MD 06/20/24 1417 [facility]03-23-2025 Hospital course Narrative* Thad Burns MD - 06/14/2024 11:52 AM EDT Discharge Diagnosis Acute on chronic back pain Issues Requiring Follow-Up F/p with pain management and neurosurgery Discharge Meds Medication List START taking these medications melatonin 10 mg tablet; Take 1 tablet (10 mg) by mouth as needed at bedtime for sleep. naloxone 4 mg/0.1 mL nasal spray; Commonly known as: Narcan; Administer 1 spray (4 mg) into affected nostril(s) if needed for opioid reversal or respiratory depression. May repeat every 2-3 minutes if needed, alternating nostrils, until medical assistance becomes available. Senexon-S 8.6-50 mg tablet; Generic drug: sennosides-docusate sodium; Take 2 tablets by mouth every 12 hours if needed for constipation. SUMAtriptan 50 mg tablet; Commonly known as: Imitrex; Take 1 tablet (50 mg) by mouth every 2 hours if needed for migraine. May repeat dose once in 2 hours if no relief. Do not exceed 2 doses in 24 hours. topiramate 25 mg tablet; Commonly known as: Topamax; Take 1 tablet (25 mg) by mouth 2 times a day. CHANGE how you take these medications oxyCODONE 5 mg immediate release tablet; Commonly known as: Roxicodone; Take 1 tablet (5 mg) by mouth every 6 hours if needed for moderate pain (4 - 6).; What changed: medication strength, how much to take, reasons to take this CONTINUE taking these medications albuterol 90 mcg/actuation aerosol powdr breath activated inhaler; Inhale 2 puffs every 4 hours if needed for wheezing or shortness of breath. cyclobenzaprine 10 mg tablet; Commonly known as: Flexeril; Take 1 tablet (10 mg) by mouth 3 times a day as needed (back pain). DULoxetine [address] capsule; Commonly known as: Cymbalta; Take 1 capsule (20 mg) by mouth once daily at bedtime. Do not crush or chew. hydrOXYzine HCL 25 mg tablet; Commonly known as: Atarax omeprazole [address] capsule; Commonly known as: PriLOSEC; Take 2 capsules (40 mg) by mouth once daily in the morning. Take before meals. Do not crush or chew. polyethylene glycol 17 gram packet; Commonly known as: Glycolax, Miralax; Take 17 g by mouth once daily. zolpidem 10 mg tablet; Commonly known as: Ambien STOP taking these medications ibuprofen 800 mg tablet ASK your doctor about these medications lidocaine 5 % patch; Commonly known as: Lidoderm; Place 1 patch over 12 hours on the skin once daily. Apply one patch topically once a day for 30 days; Ask about: Should I take this medication? Test Results Pending At Discharge Pending Labs No current pending labs. Hospital Course General Appearance: Alert, Oriented X3, Cooperative, Not in Acute Distress HEENT: no eye redness, not pale, no jaundice, Throat: not congested, no ulcers Chest: Good AE bilateral, No crackles, no ronchies, no wheezes. Heart: RHR, Normal heart sounds S1, S2, no murmur or gallop, Abdomen: Soft, lax, no hepatosplenomegaly, intact hernia orifices, negative howell sign, no tenderness, Genitalia: no abnormal discharge, no ulcers, no swelling. Lymphatics: no lymphadenopathy, supraclavicular, inguinal trochlear, or axilla. Neurology: Intact cranial nerves 2 to 12, intact sensation, intact motor function (Power, tone and reflexes). Normal DTR reflexes. No signs of weakness or FND. Extremities: no signs of PAD, no swelling no ulcers Back: no deformity, no SI tenderness, no ulcers. Skin: no signs of dehydration, no Rash, Bruises, or purpura. : Ms. Jerad Collins is a 49 y.o. 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 She has recurrent same complaint with recurrent admission, was evaluated several times by neurosurgery inpatient and outpatient, with no significant changes or indication for surgery, Off note: Upon chart review, pt was seen at [facility] on 06/10, seen in ED of other OSH on 05/26,05/27, and 06/06, at [facility] on hospitalist service on 05/16-05/17 for acute on chronic back pain with radicular pain. She was seen by pain management on 05/16 while admitted as well as neurosurgery, Upon review of OARRS she has score of 620 which is concerning. Admitted for possible radicular pain for evaluation and management PTOT evaluation. According to the patient pain is improving. Neurosurgery signoff, will continue pain management. PT/OT eval. Rec home Dc home #. Acute/ chronic back pain possible radicular pain. Improving - no red flag signs no FND. - MRI of brain on admit: No evidence of acute infarct, intracranial mass effect or midline shift. - MRI of L spine with and wo contrast: Continued interval decrease in a rim enhancing fluid collection within the subcutaneous fat overlying the posterior elements of L4 again likely footwear sales representative of a postoperative seroma versus abscess. No new fluid collections are visualized. Similar extent of spondylosis of the lumbar spine which is not significantly changed when compared to prior exam. - ESR and CRP negative - Multimodal regimen: Robaxin 500 mg PO TID scheduled, Lidocaine patch PRN, Oxycodone 5 mg q4h PRN moderate pain, and Oxycodone 10 mg q4h PRN severe pain (x24 hrs). - No IV narcotics will be ordered d/t no evidence of acute findings seen on imaging done on currentadmit. Pt will need to follow up with pain management as previously recommended. - bowel regimen as follows: Judy Colace 2 tabs PO BID and Miralax 17g every day as constipation canworsen low back pain - per chart review pt has not seen pain management since 05/16; - pain management #. Migraine - acute attack on 06/12. - reported gabapentin triggered her migraine attacks in the past. - chart review Pain management at [facility] recommended Topiramate, - at this time Sumatriptan PRN if no contraindications - discuss these options with the patient. - add tompiramate 25 mg bid, titrate after 3 days to 50 mg. - outpatient f/p GERD - Protonix 40 mg PO every day (therapeutic interchange for Omeprazole) HTN - last BP 158/90 - continue to monitor BP - no home meds - start low dose of Norvasc if BP becomes uncontrolled Code Status: Full DVT ppx: enoxaparin Disp: PT/ot rec home Spoke to my patient, Discussed the medical, social conditions, the reason for this admission explained our plan and recommendations. Time spent on the assessment of patient, gathering and interpreting data, review of medical record/patient history, personally reviewing radiographic imaging. With greater than 50% spent in personal discussion with patient. Time > 45 min Pertinent Physical Exam At Time of Discharge Physical Exam Outpatient Follow-Up Future Appointments Date Time Provider Department Center 06/23/2024 12:45 PM [facility] 06/29/2024 8:00 AM Chidi Joseph MD [id number] [place] 07/14/2024 1:30 PM Judah Woodard MD [id number] [place] 07/15/2024 3:00 PM Elke Adams MD [id number] [facility] 10/20/2024 8:30 AM Jori Harman MD PhD [id number] [place] Thad Burns MD documented in this [facility] Work Phone: [phone] Plan of care note* Care Plan - Jayna Perry RN - 06/14/2024 5:07 AM EDT The clinical goals for the shift include Pt will remain free from falls or injury throughout the shift. Over the shift, the patient did make progress toward the goals. Problem: Fall/Injury Goal: Not fall by end [...] pain meds throughout the shift Outcome: Progressing [facility]03-23-2025 Miscellaneous Notes* Care Plan - Jayna Perry RN - 06/14/2024 5:07 AM EDT The clinical goals for the shift include Pt will remain free from falls or injury throughout the shift. Over the shift, the patient did make progress toward the goals. Problem: Fall/Injury Goal: Not fall by end [...] pain meds throughout the shift Outcome: Progressing * Care Plan - Jayna Perry RN - 06/13/2024 5:01 AM EDT The clinical goals for the shift include Pt will remain free from falls or injury throughout the shift. Over the shift, the patient did make progress toward the goals. Problem: Fall/Injury Goal: Not fall by end [...] pain meds throughout the shift Outcome: Progressing * Care Plan - Raquel Gabriel RN - 06/12/2024 12:04 PM EDT The patient's goals for the shift include Decrease pain The clinical goals for the shift include Pt will remain safe and free from falls and injury throughshift Over the shift, the patient did not make progress toward the following goals. Barriers to progression include left leg numbness. Recommendations to address these barriers include PT/OT. * Significant Event - Mora Medellin MD - 06/12/2024 10:35 AM EDT Patient with previous SCS placement and subsequent removal, and L4-5 MIS discectomy, presenting with left lower extremity weakness and decreased sensation, MRI brain and MRI lumbar spine were performed which showed no clear pathology contributing to the weakness necessitating acute neurosurgical int ervention. Would recommend that patient have follow up with neurosurgery, which we will schedule for around four weeks. Neurosurgery will now sign off. Please chat or page with any questions or concerns. Mora Medellin MD Neurosurgery * Care Plan - Meri Molina RN - 06/12/2024 3:48 AM EDT The patient's goals for the shift include Decrease pain and to report pain score less than 8/10 by end of shift The clinical goals for the shift include patient will remain safe and free from falls/injury throughout entire shift Over the shift, the patient did not make progress toward the following goals. Barriers to progression include pain assessment. Will medicate patient as needed and as ordered. Recommendations to address these barriers include pain assessment and purposeful Q2H rounding. documented in this [facility] Work Phone: [phone]) 890-883903-22-2025 History of Present illness Narrative* Thad Burns MD - 06/13/2024 9:31 AM EDT Jerad Collins is a 49 y.o. female on day 0 of admission presenting with Acute on chronic back pain. Past Medical History: Diagnosis Date Anxiety Arthritis [...] TONSILLECTOMY Social History Socioeconomic History Marital status: Legally Spouse name: Not on file Number of children: Not on file Years of education: Not on file Highest education level: Not on file Occupational History Not on file Tobacco Use Smoking status: Every Day Current packs/day: 0.50 Average packs/day: 0.5 packs/day for 33.2 years (16.6 ttl pk-yrs) Types: Cigarettes Start date: 1991 Smokeless tobacco: Never Vaping Use Vaping status: Never Used Substance and Sexual Activity Alcohol use: Never Drug use: Not Currently Types: Cocaine, Heroin Comment: last use 2016- heroin Sexual activity: Defer Other Topics Concern Not on file Social History Narrative Not on file Social Drivers of Health Financial Resource Strain: Low Risk (06/12/2024) Overall Financial Resource Strain (CARDIA) Difficulty of Paying Living Expenses: Not hard at all Food Insecurity: No Food Insecurity (06/12/2024) Hunger Vital Sign Worried About Running Out of Food in the Last Year: Never true Ran Out of Food in the Last Year: Never true Transportation Needs: No Transportation Needs (06/12/2024) PRAPARE - Transportation Lack of Transportation (Medical): No Lack of Transportation (Non-Medical): No Physical Activity: Inactive (06/12/2024) Exercise Vital Sign Days of Exercise per Week: 0 days Minutes of Exercise per Session: 0 min Stress: No Stress Concern Present (06/12/2024) [place] [employer] - Occupational Stress Questionnaire Feeling of Stress : Not at all Recent Concern: Stress - Stress Concern Present (04/02/2024) Received from [facility] [place] [employer] - Occupational Stress Questionnaire Feeling of Stress : Rather much Social Connections: Socially Isolated (06/12/2024) Social Connection and Isolation Panel [NHANES] Frequency of Communication with Friends and Family: More than three times a week Frequency of Social Gatherings with Friends and Family: Twice a week Attends Orthodox Services: Never Active Member of Clubs or Organizations: No Attends Club or Organization Meetings: Never Marital Status: Intimate Partner Violence: Not At Risk (06/12/2024) Humiliation, Afraid, Rape, and Kick questionnaire Fear of Current or Ex-Partner: No Emotionally Abused: No Physically Abused: No Sexually Abused: No Housing Stability: Low Risk (06/12/2024) Housing Stability Vital Sign Unable to Pay for Housing in the Last Year: No Number of Times Moved in the Last Year: 0 Homeless in the Last Year: No Recent Concern: Housing Stability - High Risk (06/12/2024) Housing Stability Vital Sign Unable to Pay for Housing in the Last Year: Yes Number of Times Moved in the Last Year: 0 Homeless in the Last Year: No Allergies Allergen Reactions Hydrocodone Hives, Unknown and Rash Penicillins Hives and Unknown Reported hives as a child. Prescribed cephalexin September 2023 and reported itching only (no rash/hives). Also reports having taken amoxicillin in the past and tolerated. Acetaminophen Unknown and Other History of stage III liver fibrosis Liver failure. Diclofenac Hives Gabapentin Headache and Unknown Leg swelling Pregabalin Swelling and Unknown BLE Nabumetone Nausea/vomiting and Rash Dietary Orders (From admission, onward) May Participate in Room Service Once Question: . Answer: Yes Adult diet Regular Diet effective now Question: Diet type Answer: Regular Objective Vitals Temp: [35.7 C (96.3 F)-36.8 C (98.2 F)] 35.7 C (96.3 F) Heart Rate: [70-94] 94 Resp: [15-19] 15 BP: (140-148)/(62-89) 145/89 0-10 (Numeric) Pain Score: 8 Russell-Gifford FACES Pain Rating: Hurts little more Peripheral IV 06/11/24 20 G Right Antecubital (Active) Number of days: 1 Vent Settings Intake/Output Summary (Last 24 hours) at 06/13/2024 0931 Last data filed at 06/12/2024 0936 Gross per 24 hour Intake 480 ml Output -- Net 480 ml Relevant Results Scheduled medications DULoxetine, 20 mg, oral, Nightly enoxaparin, 40 mg, subcutaneous, q12h BLAISE methocarbamol, 500 mg, oral, q8h BLAISE pantoprazole, 40 mg, oral, Daily polyethylene glycol, 17 g, oral, Daily sennosides-docusate sodium, 2 tablet, oral, BID topiramate, 25 mg, oral, BID Continuous medications PRN medications PRN medications: lidocaine, melatonin, oxyCODONE, oxyCODONE, SUMAtriptan Assessment & Plan Acute on chronic back pain Assessment/Plan S/ Seen and examined No new complaints no new event over the night ROS: Negative O/ General Appearance: Alert, Oriented X3, Cooperative, Not in Acute Distress HEENT: no eye redness, not pale, no jaundice, Throat: not congested, no ulcers Chest: Good AE bilateral, No crackles, no ronchies, no wheezes. Heart: RHR, Normal heart sounds S1, S2, no murmur or gallop, Abdomen: Soft, lax, no hepatosplenomegaly, intact hernia orifices, negative howell sign, no tenderness, Genitalia: no abnormal discharge, no ulcers, no swelling. Lymphatics: no lymphadenopathy, supraclavicular, inguinal trochlear, or axilla. Neurology: Intact cranial nerves 2 to 12, intact sensation, intact motor function (Power, tone and reflexes). Normal DTR reflexes. No signs of weakness or FND. Extremities: no signs of PAD, no swelling no ulcers Back: no deformity, no SI tenderness, no ulcers. Skin: no signs of dehydration, no Rash, Bruises, or purpura. : Ms. Jerad Collins is a 49 y.o. 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 She has recurrent same complaint with recurrent admission, was evaluated several times by neurosurgery inpatient and outpatient, with no significant changes or indication for surgery, Off note: Upon chart review, pt was seen at [facility] on 06/10, seen in ED of other OSH on 05/26,05/27, and 06/06, at [facility] on hospitalist service on 05/16-05/17 for acute on chronic back pain with radicular pain. She was seen by pain management on 05/16 while admitted as well as neurosurgery, Upon review of OARRS she has score of 620 which is concerning. Admitted for possible radicular pain for evaluation and management PTOT evaluation. According to the patient pain is improving. Neurosurgery signoff, will continue pain management. PT/OT eval. #. Acute/ chronic back pain possible radicular pain. Improving - no red flag signs no FND. - MRI of brain on admit: No evidence of acute infarct, intracranial mass effect or midline shift. - MRI of L spine with and wo contrast: Continued interval decrease in a rim enhancing fluid collection within the subcutaneous fat overlying the posterior elements of L4 again likely footwear sales representative of a postoperative seroma versus abscess. No new fluid collections are visualized. Similar extent of spondylosis of the lumbar spine which is not significantly changed when compared to prior exam. - ESR and CRP negative - Multimodal regimen: Robaxin 500 mg PO TID scheduled, Lidocaine patch PRN, Oxycodone 5 mg q4h PRN moderate pain, and Oxycodone 10 mg q4h PRN severe pain (x24 hrs). - No IV narcotics will be ordered d/t no evidence of acute findings seen on imaging done on currentadmit. Pt will need to follow up with pain management as previously recommended. - bowel regimen as follows: Judy Colace 2 tabs PO BID and Miralax 17g every day as constipation canworsen low back pain - per chart review pt has not seen pain management since 05/16; - pain management #. Migraine - acute attack on 06/12. - reported gabapentin triggered her migraine attacks in the past. - chart review Pain management at [facility] recommended Topiramate, - at this time Sumatriptan PRN if no contraindications - discuss these options with the patient. - add tompiramate 25 mg bid, titrate after 3 days to 50 mg. - outpatient f/p GERD - Protonix 40 mg PO every day (therapeutic interchange for Omeprazole) HTN - last BP 158/90 - continue to monitor BP - no home meds - start low dose of Norvasc if BP becomes uncontrolled Code Status: Full DVT ppx: enoxaparin Disp: PT/ot rec home Spoke to my patient, Discussed the medical, social conditions, the reason for this admission explained our plan and recommendations. Time spent on the assessment of patient, gathering and interpreting data, review of medical record/patient history, personally reviewing radiographic imaging. With greater than 50% spent in personal discussion with patient. Time > 45 min Thad Burns MD * Cruz Yeung, PharmD - 06/12/2024 1:46 PM EDT Images from the original note were not included. Pharmacy Medication History Review Jerad Collins is a 49 y.o. female admitted for Acute on chronic back pain. Pharmacy reviewedthe patient's [id number] medications and allergies for accuracy. Medications ADDED Hydroxyzine HCl 25 mg Zolpidem 10 mg Medications CHANGED Miralax --> as needed for constipation Medications REMOVED/NOT TAKING Diclofenac 1% gel Flonase nasal spray Oxycodone 5 mg capsule Oxycodone 10 mg tablet The list below reflects the updated SALES SERVICE COORDINATOR list. Prior to Admission Medications Prescriptions Last Dose Informant DULoxetine (Cymbalta) [address] capsule Self Sig: Take 1 capsule (20 mg) by mouth once daily at bedtime. Do not crush or chew. albuterol 90 mcg/actuation aerosol powdr breath activated inhaler Self Sig: Inhale 2 puffs every 4 hours if needed for wheezing or shortness of breath. cyclobenzaprine (Flexeril) 10 mg tablet Self Sig: Take 1 tablet (10 mg) by mouth 3 times a day as needed (back pain). hydrOXYzine HCL (Atarax) 25 mg tablet Self Sig: Take 1 tablet (25 mg) by mouth 4 times a day as needed for anxiety. Patient taking differently: Take 1 tablet (25 mg) by mouth as needed at bedtime for anxiety. ibuprofen 800 mg tablet Self Sig: Take 1 tablet (800 mg) by mouth every 8 hours if needed (any level of pain in back). lidocaine (Lidoderm) 5 % patch Not Taking Self Sig: Place 1 patch over 12 hours on the skin once daily. Apply one patch topically once a day for 30 days Patient not taking: Reported on 06/12/2024 omeprazole (PriLOSEC) [address] capsule 06/11/2024 Self Sig: Take 2 capsules (40 mg) by mouth once daily in the morning. Take before meals. Do not crush orchew. Patient taking omeprazole 20 mg tablet OTC outpatient oxyCODONE (Roxicodone) 10 mg immediate release tablet Not Taking Self Sig: Take 1 tablet (10 mg) by mouth every 6 hours if needed for severe pain (7 - 10). Patient not taking: Reported on 06/12/2024 polyethylene glycol (Glycolax, Miralax) 17 gram packet Self Sig: Take 17 g by mouth once daily. Patient taking differently: Take 17 g by mouth once daily as needed (constipation). zolpidem (Ambien) 10 mg tablet Self Sig: Take 1 tablet (10 mg) by mouth once daily at bedtime. Last filled for zolpidem 5 mg on 01/28/24 for 7 day supply Facility-Administered Medications: None The list below reflects the updated allergy list. Please review each documented allergy for additional clarification and justification. Allergies Reviewed by Meri Molina RN on 06/12/2024 Severity Reactions Comments Hydrocodone Medium Hives, Unknown, Rash Penicillins Medium Hives, Unknown Reported hives as a child. Prescribed cephalexin September 2023 and reported itching only (no rash/hives). Also reports having taken amoxicillin in the past and tolerated. Acetaminophen Not Specified Unknown, Other History of stage III liver fibrosis Liver failure. Diclofenac Not Specified Hives Gabapentin Not Specified Headache, Unknown Leg swelling Pregabalin Not Specified Swelling, Unknown BLE Nabumetone Low Nausea/vomiting, Rash Patient accepts M2B at discharge. Pharmacy has been updated to [facility]. Sources [facility] Pharmacy dispense history Patient Interview Good historian Additional Comments See highlighted sections in above table Cruz Yeung PharmD [facility] [id number], Room[facility] [address] [place] [address] Please reach out via Secure Chat for questions, or if no response call [employer] or [employer] * Gladys Pittrocks, PT - 06/12/2024 12:46 PM EDT Physical Therapy Physical Therapy Evaluation Patient Name: Jerad Collins Department: [place] [id number] Room: [address] [place] [address] Today's Date: 06/12/2024 Time Calculation Start Time: 1122 Stop Time: 1133 Time Calculation (min): 11 min Assessment/Plan PT Assessment PT Assessment Results: Decreased strength, Decreased mobility Rehab Prognosis: Excellent Barriers to Discharge Home: No anticipated barriers End of Session Communication: Bedside nurse Assessment Comment: Pt with improved mobility safety with use of whw during session, reports improvements in pain and abilities to mobilize (L) LE. If remains inpatient, will continue to follow to ensure continued safe mobility. End of Session Patient Position: Bed, 2 rail up, Alarm off, not on at start of session IP OR SWING BED PT PLAN Inpatient or Swing Bed: Inpatient PT Plan Treatment/Interventions: Gait training, Stair training, Therapeutic exercise, Therapeutic activity PT Plan: Ongoing PT PT Frequency: 2 times per week PT Discharge Recommendations: No PT needed after discharge PT Recommended Transfer Status: Assistive device, Stand by assist PT - OK to Discharge: Yes (meaning POC/goals/discharge intensity recommendation created) Subjective General Visit Information: General Reason for Referral: fall with back pain-> currently no acute interventions Past Medical History Relevant to Rehab: chronic low back pain s/p spinal cord stimulator placement 09/23/23 c/b wound dehiscence with subsequent washout/remova 10/14/23, L4-5 microdiscectomy 02/06/24, T12-L1 lesion PT Missed Visit: Yes Missed Visit Reason: (@847, pt receiving morning meds/pain meds, will reattempt later this date.) Co-Treatment: (partial overlap with OT for mobility due to pt's reports of high pain as well as need for AUDI evals due to OBS) Prior to Session Communication: Bedside nurse General Comment: Pt agreeable to participate, feels she can lift her (L) LE more than yesterday andoverall feels better than yesterday. Demos (L) hip weakness as noted with mobility tasks, though overall (S)-> mod (I) with mobility tasks. Left whw in room for patient to utilize for improved safety with gait. Home Living: Home Living Type of Home: House Lives With: (fiance and son) Home Adaptive Equipment: Walker rolling or standard Home Layout: One level, Able to live on main level with bedroom/bathroom Home Access: Stairs to enter with rails Entrance Stairs-Number of Steps: 2 Prior Level of Function: Prior Function Per Pt/Caregiver Report ADL Assistance: Independent Ambulatory Assistance: (whw use recently, reports every ~4 months has issues with increased pain and (L) LE weakness/numbness) Prior Function Comments: reports recent fall caused by dog tripping her Precautions: Precautions Hearing/Visual Limitations: WFL Medical Precautions: Fall precautions Post-Surgical Precautions: (reviewed body mechanics/spine BLTsq) Objective Pain: Pain Assessment Pain Assessment: 0-10 0-10 (Numeric) Pain Score: 8 Pain Location: Back Pain Orientation: Lower Pain Interventions: Repositioned Response to Interventions: (appears comfortable at rest) Cognition: Cognition Orientation Level: Oriented X4 Following Commands: Follows all commands and directions without difficulty Impulsive: Mildly General Assessments: Activity Tolerance Endurance: Tolerates 10 - 20 min exercise with multiple rests Sensation Sensation Comment: decreased sensation reported in (L) LE Perception Inattention/Neglect: Appears intact Initiation: Appears intact Motor Planning: Appears intact Perseveration: Not present Postural Control Postural Control: Within Functional Limits Static Sitting Balance Static Sitting-Balance Support: Feet supported Static Sitting-Level of Assistance: Independent Static Standing Balance Static Standing-Balance Support: No upper extremity supported Static Standing-Level of Assistance: Close supervision Dynamic Standing Balance Dynamic Standing-Balance Support: No upper extremity supported (progressed to (B) UE support) Dynamic Standing-Level of Assistance: Close supervision, Distant supervision Dynamic Standing-Comments: no AD-> use of whw Functional Assessments: Bed Mobility Bed Mobility: Yes Bed Mobility 1 Bed Mobility 1: Supine to sitting, Sitting to supine Level of Assistance 1: Modified independent Bed Mobility Comments 1: raised HOB, somewhat quick movements with use of momentum Bed Mobility 2 Bed Mobility 2: Scooting Level of Assistance 2: Distant supervision Bed Mobility Comments 2: increased lateral/postural sway to complete Transfers Transfer: Yes Transfer 1 Transfer From 1: Bed to Transfer to 1: Stand Transfer Level of Assistance 1: Distant supervision, Close supervision Transfers 2 Transfer From 2: Stand to Transfer to 2: Bed Transfer Level of Assistance 2: Distant supervision Ambulation/Gait Training Ambulation/Gait Training Performed: Yes Ambulation/Gait Training 1 Surface 1: Level tile Device 1: No device Assistance 1: Close supervision, Minimal verbal cues Quality of Gait 1: (step to gait pattern leading with (R) LE, limited foot clearance of (L) LE, increased postural sway) Comments/Distance (ft) 1: 10 ft Ambulation/Gait Training 2 Surface 2: Level tile Device 2: Rolling walker Assistance 2: Close supervision, Distant supervision Quality of Gait 2: (slightly clearing floor with (L) foot with use of whw, more of step through continous gait pattern, less sway) Comments/Distance (ft) 2: 20 ft Extremity/Trunk Assessments: RLE RLE : Within Functional Limits LLE LLE : Exceptions to WFL Strength LLE LLE Overall Strength: (3-/5 at hip, knee) Outcome Measures: [facility] Basic Mobility Turning from your back to your side while in a flat bed without using bedrails: A little Moving from lying on your back to sitting on the side of a flat bed without using bedrails: A little Moving to and from bed to chair (including a wheelchair): None Standing up from a chair using your arms (e.g. wheelchair or bedside chair): None To walk in hospital room: A little Climbing 3-5 steps with railing: A little Basic Mobility - Total Score: 20 Encounter Problems Encounter Problems (Active) Balance Patient will maintain balance to allow for safe mobility mod (I), LRAD. Start: 06/12/24 Expected End: 06/26/24 Mobility STG - Patient will ambulate mod (I), LRAD, 100 ft. Start: 06/12/24 Expected End: 06/26/24 Will navigate 2 steps with 1 rail (S)-> (I). Start: 06/12/24 Expected End: 06/26/24 Education Documentation Mobility Training, taught by Gladys Osorio PT at 06/12/2024 12:44 PM. Learner: Patient Readiness: Acceptance Method: Explanation Response: Verbalizes Understanding Comment: PT POC, whw for inpatient use left in room, reviewed stair negotiation and spine BLTs 06/12/24 at 12:46 PM - Gladys Osorio PT * Millicent Andujar, OT - 06/12/2024 12:22 PM EDT Occupational Therapy Evaluation Patient Name: Jerad Collins Today's Date: 06/12/2024 Room: [address] [place] [address] Time Calculation Start Time: 1130 Stop Time: 1139 Time Calculation (min): 9 min Assessment IP OT Assessment OT Assessment: Pt presenting with decreased functional mobility/transfers d/t pain at lower back & L leg. Despite pain, Pt able to complete ADLs with modified independence and currently does not require further skilled OT intervention. OT eval only and will discharge OT orders. Prognosis: Good Barriers to Discharge Home: No anticipated barriers Evaluation/Treatment Tolerance: Patient tolerated treatment well Medical Staff Made Aware: Yes End of Session Communication: Bedside nurse End of Session Patient Position: Bed, 2 rail up, Alarm off, not on at start of session Plan: Inpatient Plan No Skilled OT: Independent with ADLs OT Frequency: OT eval only OT Discharge Recommendations: No OT needed after discharge, No further acute OT Equipment Recommended upon Discharge: Wheeled walker OT Recommended Transfer Status: Independent, Assistive equipment (Comment) (with FWW) OT - OK to Discharge: Yes OT Assessment OT Assessment Results: Decreased functional mobility Prognosis: Good Evaluation/Treatment Tolerance: Patient tolerated treatment well Medical Staff Made Aware: Yes Strengths: Attitude of self, Capable of completing ADLs semi/independent, Premorbid level of function, Housing layout Barriers to Participation: Comorbidities Subjective Current Problem: 1. Back pain, unspecified back location, unspecified back pain laterality, unspecified chronicity General: Reason for Referral: worsening lower back pain and left leg numbness Past Medical History Relevant to Rehab: chronic low back pain, neuropathic pain in bilateral lower extremities, chronic left lower extremity radiculopathy, HCV, GERD, depression, bipolar disease, 09/23/23 s/p percutaneous SCC placement, c/b wound dehiscence 10/14/23 s/p wound washout and SCC and generator removal, 02/06/24 s/p L4-5 MIS discectomy Prior to Session Communication: Bedside nurse Patient Position Received: Bed, 2 rail up, Alarm off, not on at start of session Family/Caregiver Present: No General Comment: Pt pleasant & agreeable to therapy despite reports of elevated pain levels . Precautions: Medical Precautions: Fall precautions, Spinal precautions Pain: Pain Assessment Pain Assessment: 0-10 0-10 (Numeric) Pain Score: 8 Pain Type: Acute pain Pain Location: Back Pain Orientation: Lower, Left Objective Cognition: Overall Cognitive Status: Within Functional Limits Orientation Level: Oriented X4 Following Commands: Follows all commands and directions without difficulty Home Living: Type of Home: House Lives With: (fiance & son) Home Adaptive Equipment: Walker rolling or standard Home Layout: One level, Laundry main level Home Access: Stairs to enter with rails Entrance Stairs-Rails: (one) Entrance Stairs-Number of Steps: 2 Bathroom Shower/Tub: Walk-in shower Bathroom Toilet: Standard Bathroom Equipment: Grab bars in shower, Shower chair with back Prior Function: Level of [place]: Independent with ADLs and functional transfers, Independent with homemaking with ambulation Receives Help From: Family ADL Assistance: Independent Homemaking Assistance: Independent Ambulatory Assistance: (Mod I with walker most recently d/t pain) Leisure: spending time with Respiricsds Hand Dominance: Right Prior Function Comments: +drives, reports x1 recent fall prior to admission tripped over my dog ADL: Eating Assistance: Independent Grooming Assistance: Independent (anticpiated) Bathing Deficit: Setup (anticipated) UE Dressing Assistance: Independent (anticipated) LE Dressing Assistance: Modified independent (Device) LE Dressing Deficit: Increased time to complete, Don/doff R sock, Don/doff L sock Toileting Assistance with Device: Modified independent (anticipated, per Pt & nursing report, shes is getting up to bathroom independently.) Toileting Deficit: Increased time to complete Activity Tolerance: Endurance: Tolerates 10 - 20 min exercise with multiple rests Balance: Dynamic Sitting Balance Dynamic Sitting-Level of Assistance: Independent Dynamic Sitting-Balance: Lateral lean, Forward lean, Reaching for objects Dynamic Standing Balance Dynamic Standing-Balance Support: Bilateral upper extremity supported, No upper extremity supported Dynamic Standing-Level of Assistance: (close supervision w/o walker, distance supervision with walker when ambulating/turning) Static Sitting Balance Static Sitting-Level of Assistance: Independent Static Standing Balance Static Standing-Balance Support: Bilateral upper extremity supported, No upper extremity supported Static Standing-Level of Assistance: Modified Independent Bed Mobility/Transfers: Bed Mobility Bed Mobility: Yes Bed Mobility 1 Bed Mobility 1: Supine to sitting, Sitting to supine Level of Assistance 1: Modified independent Bed Mobility Comments 1: HOB elevated, log roll Functional Mobility Functional Mobility Performed: Yes Functional Mobility 1 Surface 1: Level tile Device 1: No device Assistance 1: Close supervision Quality of Functional Mobility 1: Diminished heel strike (L LE sliding on ground) Comments 1: x min household distance, mild unsteadiness noted however no LOB noted. Functional Mobility 2 Surface 2: Level tile Device 2: Rolling walker Assistance 2: Distant supervision Quality of Functional Mobility 2: Diminished heel strike Comments 2: functional mobility x min household distance, improved stability noted with walker. Educated Pt on use of FWW when ambulating to/from bathroom for falls prevention and reduce pain. and Transfers Transfer: Yes Transfer 1 Transfer From 1: Bed to Transfer to 1: Stand Technique 1: Sit to stand Transfer Level of Assistance 1: Distant supervision Transfers 2 Transfer From 2: Stand to Transfer to 2: Sit Technique 2: Stand to sit Transfer Level of Assistance 2: Distant supervision Vision: Vision - Basic Assessment Current Vision: Wears glasses all the time Strength: Strength Comments: B UEs grossly 4+/5 based on functional observation Coordination: Movements are Fluid and Coordinated: No Upper Body Coordination: WNL Lower Body Coordination: decreased coordination L LE with ambulation Hand Function: Hand Function Gross Grasp: Functional Coordination: Functional Extremities: RUE RUE : Within Functional Limits, LUE LUE: Within Functional Limits, Outcome Measures: [facility] Daily Activity Putting on and taking off regular lower body clothing: None Bathing (including washing, rinsing, drying): A little Putting on and taking off regular upper body clothing: None Toileting, which includes using toilet, bedpan or urinal: None Taking care of personal grooming such as brushing teeth: None Eating Meals: None Daily Activity - Total Score: 23 Brief Confusion Assessment Method (bCAM) Feature 1: Altered Mental Status or Fluctuating Course: No CAM Result: CAM - Education Documentation Body Mechanics, taught by Millicent Andujar OT at 06/12/2024 12:21 PM. Learner: Patient Readiness: Acceptance Method: Explanation Response: Verbalizes Understanding Comment: Use of AD with functional mobility to/from bathroom, safe transfer techniques Precautions, taught by Millicent Andujar OT at 06/12/2024 12:21 PM. Learner: Patient Readiness: Acceptance Method: Explanation Response: Verbalizes Understanding Comment: Use of AD with functional mobility to/from bathroom, safe transfer techniques ADL Training, taught by Millicent Andujar OT at 06/12/2024 12:21 PM. Learner: Patient Readiness: Acceptance Method: Explanation Response: Verbalizes Understanding Comment: Use of AD with functional mobility to/from bathroom, safe transfer techniques Education Comments No comments found. 06/12/24 at 12:22 PM Millicent Andujar OT Rehab Office: [phone] * Brayan Santoyo RN - 06/12/2024 9:53 AM EDT 06/12/24 0953 Discharge Planning Living Arrangements Spouse/significant other Support Systems Spouse/significant other Assistance Needed Patient independent with ADL's Number of Stairs to Enter Residence 2 Number of Stairs Within Residence 0 Do you have animals or pets at home? Yes Type of Animals or Pets 2 dogs Who is requesting discharge planning? Provider Home or Post Acute Services Other (Comment) (TBD PT/OT) Expected Discharge Disposition Home Does the patient need discharge transport arranged? No Financial Resource Strain How hard is it for you to pay for the very basics like food, housing, medical care, and heating? Not hard Housing Stability In the last 12 months, was there a time when you were not able to pay the mortgage or rent on time?N At any time in the past 12 months, were you homeless or living in a fpc (including now)? N Transportation Needs In the past 12 months, has lack of transportation kept you from medical appointments or from getting medications? no In the past 12 months, has lack of transportation kept you from meetings, work, or from getting things needed for daily living? No Patient Choice Patient / Family choosing to utilize agency / facility established prior to hospitalization No Assessment Note: Met with patient and Introduced myself as wound care center consultant and member of the Care Transitions team for discharge planning. Patient lives with sign other, she is independent with ADL's. Patient demographics and contact information verified. Pt feels safe at home. Patient have no further questions orconcerns at this time. Transportation: Patient drive to apppt car in the [place] [facility]: [facility] DME: None Previous home care: None Falls: Trip over dog reinjured her back PCP: Danuta Caicedo have appt 06/23 will use a follow up appte Dialysis: Denies Diabetic: Denies Transitional Care Coordination Progress Note: Patient discussed during interdisciplinary rounds. Team members present: MD & TCC Plan per Medical/Surgical team: Payor: [facility] Discharge disposition: TBD pt/ot eval Potential Barriers: None ADOD: 06/14 TCC will continue to follow and update the plan as warranted. JIMMY Mcdaniel-poultry processor Coordinator (TCC) [phone] ext [phone] * Thad Burns MD - 06/12/2024 9:17 AM EDT Jerad Collins is a 49 y.o. female on day 0 of admission presenting with Acute on chronic back pain. Past Medical History: Diagnosis Date Anxiety Arthritis [...] TONSILLECTOMY Social History Socioeconomic History Marital status: Legally Spouse name: Not on file Number of children: Not on file Years of education: Not on file Highest education level: Not on file Occupational History Not on file Tobacco Use Smoking status: Every Day Current packs/day: 0.50 Average packs/day: 0.5 packs/day for 33.2 years (16.6 ttl pk-yrs) Types: Cigarettes Start date: 1991 Smokeless tobacco: Never Vaping Use Vaping status: Never Used Substance and Sexual Activity Alcohol use: Never Drug use: Not Currently Types: Cocaine, Heroin Comment: last use 2016- heroin Sexual activity: Defer Other Topics Concern Not on file Social History Narrative Not on file Social Drivers of Health Financial Resource Strain: Low Risk (06/12/2024) Overall Financial Resource Strain (CARDIA) Difficulty of Paying Living Expenses: Not hard at all Food Insecurity: No Food Insecurity (06/12/2024) Hunger Vital Sign Worried About Running Out of Food in the Last Year: Never true Ran Out of Food in the Last Year: Never true Transportation Needs: No Transportation Needs (06/12/2024) PRAPARE - Transportation Lack of Transportation (Medical): No Lack of Transportation (Non-Medical): No Physical Activity: Inactive (06/12/2024) Exercise Vital Sign Days of Exercise per Week: 0 days Minutes of Exercise per Session: 0 min Stress: No Stress Concern Present (06/12/2024) [place] [employer] - Occupational Stress Questionnaire Feeling of Stress : Not at all Recent Concern: Stress - Stress Concern Present (04/02/2024) Received from [facility] [place] [employer] - Occupational Stress Questionnaire Feeling of Stress : Rather much Social Connections: Socially Isolated (06/12/2024) Social Connection and Isolation Panel [NHANES] Frequency of Communication with Friends and Family: More than three times a week Frequency of Social Gatherings with Friends and Family: Twice a week Attends Orthodox Services: Never Active Member of Clubs or Organizations: No Attends Club or Organization Meetings: Never Marital Status: Intimate Partner Violence: Not At Risk (06/12/2024) Humiliation, Afraid, Rape, and Kick questionnaire Fear of Current or Ex-Partner: No Emotionally Abused: No Physically Abused: No Sexually Abused: No Housing Stability: Low Risk (06/12/2024) Housing Stability Vital Sign Unable to Pay for Housing in the Last Year: No Number of Times Moved in the Last Year: 0 Homeless in the Last Year: No Recent Concern: Housing Stability - High Risk (06/12/2024) Housing Stability Vital Sign Unable to Pay for Housing in the Last Year: Yes Number of Times Moved in the Last Year: 0 Homeless in the Last Year: No Allergies Allergen Reactions Hydrocodone Hives, Unknown and Rash Penicillins Hives and Unknown Reported hives as a child. Prescribed cephalexin September 2023 and reported itching only (no rash/hives). Also reports having taken amoxicillin in the past and tolerated. Acetaminophen Unknown and Other History of stage III liver fibrosis Liver failure. Diclofenac Hives Gabapentin Headache and Unknown Leg swelling Pregabalin Swelling and Unknown BLE Nabumetone Nausea/vomiting and Rash Dietary Orders (From admission, onward) May Participate in Room Service Once Question: . Answer: Yes Adult diet Regular Diet effective now Question: Diet type Answer: Regular Objective Vitals Temp: [36.2 C (97.2 F)-36.7 C (98 F)] 36.2 C (97.2 F) Heart Rate: [85-106] 85 Resp: [17-20] 17 BP: (127-158)/(53-90) 127/74 0-10 (Numeric) Pain Score: 8 Russell-Gifford FACES Pain Rating: Hurts whole lot Peripheral IV 06/11/24 20 G Right Antecubital (Active) Number of days: 1 Vent Settings No intake or output data in the 24 hours ending 06/12/24 0919 Relevant Results Scheduled medications DULoxetine, 20 mg, oral, Nightly enoxaparin, 40 mg, subcutaneous, q12h BLAISE methocarbamol, 500 mg, oral, q8h BLAISE pantoprazole, 40 mg, oral, Daily polyethylene glycol, 17 g, oral, Daily sennosides-docusate sodium, 2 tablet, oral, BID Continuous medications PRN medications PRN medications: lidocaine, melatonin, oxyCODONE, oxyCODONE Assessment & Plan Acute on chronic back pain Assessment/Plan S/ Seen and examined No new complaints no new event over the night ROS: Negative O/ General Appearance: Alert, Oriented X3, Cooperative, Not in Acute Distress HEENT: no eye redness, not pale, no jaundice, Throat: not congested, no ulcers Chest: Good AE bilateral, No crackles, no ronchies, no wheezes. Heart: RHR, Normal heart sounds S1, S2, no murmur or gallop, Abdomen: Soft, lax, no hepatosplenomegaly, intact hernia orifices, negative howell sign, no tenderness, Genitalia: no abnormal discharge, no ulcers, no swelling. Lymphatics: no lymphadenopathy, supraclavicular, inguinal trochlear, or axilla. Neurology: Intact cranial nerves 2 to 12, intact sensation, intact motor function (Power, tone and reflexes). Normal DTR reflexes. No signs of weakness or FND. Extremities: no signs of PAD, no swelling no ulcers Back: no deformity, no SI tenderness, no ulcers. Skin: no signs of dehydration, no Rash, Bruises, or purpura. : Ms. Jerad Collins is a 49 y.o. 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 She has recurrent same complaint with recurrent admission, was evaluated several times by neurosurgery inpatient and outpatient, with no significant changes or indication for surgery, Off note: Upon chart review, pt was seen at [facility] on 06/10, seen in ED of other OSH on 05/26,05/27, and 06/06, at [facility] on hospitalist service on 05/16-05/17 for acute on chronic back pain with radicular pain. She was seen by pain management on 05/16 while admitted as well as neurosurgery, Upon review of OARRS she has score of 620 which is concerning. Admitted for possible radicular pain for evaluation and management PTOT evaluation. According to the patient pain is improving. #. Acute/ chronic back pain possible radicular pain. Improving - no red flag signs no FND. - MRI of brain on admit: No evidence of acute infarct, intracranial mass effect or midline shift. - MRI of L spine with and wo contrast: Continued interval decrease in a rim enhancing fluid collection within the subcutaneous fat overlying the posterior elements of L4 again likely footwear sales representative of a postoperative seroma versus abscess. No new fluid collections are visualized. Similar extent of spondylosis of the lumbar spine which is not significantly changed when compared to prior exam. - ESR and CRP negative - Multimodal regimen: Robaxin 500 mg PO TID scheduled, Lidocaine patch PRN, Oxycodone 5 mg q4h PRN moderate pain, and Oxycodone 10 mg q4h PRN severe pain (x24 hrs). - No IV narcotics will be ordered d/t no evidence of acute findings seen on imaging done on currentadmit. Pt will need to follow up with pain management as previously recommended. - bowel regimen as follows: Judy Colace 2 tabs PO BID and Miralax 17g every day as constipation canworsen low back pain - per chart review pt has not seen pain management since 05/16; - pain management GERD - Protonix 40 mg PO every day (therapeutic interchange for Omeprazole) HTN - last BP 158/90 - continue to monitor BP - no home meds - start low dose of Norvasc if BP becomes uncontrolled Code Status: Full DVT ppx: Disp: PT/ot Spoke to my patient, Discussed the medical, social conditions, the reason for this admission explained our plan and recommendations. Time spent on the assessment of patient, gathering and interpreting data, review of medical record/patient history, personally reviewing radiographic imaging. With greater than 50% spent in personal discussion with patient. Time > 45 min Thad Burns MD * Gladys Osorio PT - 06/12/2024 8:47 AM EDT Physical Therapy Therapy Communication Note Patient Name: Jerad Collins Department: [place] [id number] Room: [address] [place] [address] Today's Date: 06/12/2024 Discipline: Physical Therapy PT Missed Visit: Yes Missed Visit Reason: Missed Visit Reason: (@847, pt receiving morning meds/pain meds, will reattempt later this date.) Missed Time: Attempt 06/12/24 at 08:47 AM - Gladys [facility]sorio PT [facility] Phone: [phone]) 126-723703-22-2025 Plan of care note* Care Plan - Jayna Perry RN - 06/13/2024 5:01 AM EDT The clinical goals for the shift include Pt will remain free from falls or injury throughout the shift. Over the shift, the patient did make progress toward the goals. Problem: Fall/Injury Goal: Not fall by end [...] pain meds throughout the shift Outcome: Progressing [facility] Work Phone: [phone]) 656-923703-21-2025 Plan of care note* Care Plan - Raquel Gabriel RN - 06/12/2024 12:04 PM EDT The patient's goals for the shift include Decrease pain The clinical goals for the shift include Pt will remain safe and free from falls and injury throughshift Over the shift, the patient did not make progress toward the following goals. Barriers to progression include left leg numbness. Recommendations to address these barriers include PT/OT. [facility] Work Phone: [phone]) 710-293103-21-2025 Consult note* Promise Chirinos MD - 06/12/2024 12:00 PM EDTAssociated Order(s): IP CONSULT TO PAIN MANAGEMENT Reason For Consult Pain management History Of Present Illness Karina Tracy is a 49 y.o. female with history of chronic low back pain, neuropathic pain in bilaterallower extremities, chronic left lower extremity radiculopathy, HCV, GERD, depression, bipolar disease, 09/23/23 s/p percutaneous SCS placement, c/b wound dehiscence 10/14/23 s/p wound washout and SCC and generator removal, 02/06/24 s/p L4-5 MIS discectomy, 05/16 p/w worsening back pain, MRI T/L spine w/wo non-compressive enhancing superficial fluid collection near L4 decreased compared to 03/2024 p/w lower extremity pain. MRI brain and MRI lumbar spine performed and showed no clear pathology contributing to pain and weakness necessitating acute neurosurgical intervention. NSGY consulted and signed off. Past Medical History She has a past medical history of Anxiety, Arthritis, Bipolar disorder, Chronic pain disorder, Depression, HCV (hepatitis C virus) (2013), Herniated lumbar intervertebral disc, Liver disease, Lumbar radiculopathy, chronic, Neuropathic pain, Obesity, and Vision loss. Surgical History She has a past surgical history that includes Cholecystectomy; Hysterectomy; Tonsillectomy; Myringotomy w/ tubes (Bilateral); Dental surgery (Bilateral); Bunionectomy (Bilateral); Colonoscopy; Adenoidectomy; Spinal cord stimulator removal (10/14/2023); Spinal cord stimulator implant (09/23/2023); and Spinal cord stimulator trial w/ laminotomy (08/21/2023). Social History She reports that she has been smoking cigarettes. She started smoking about 33 years ago. She has a16.6 pack-year smoking history. She has never used smokeless tobacco. She reports that she does notcurrently use drugs after having used the following drugs: Cocaine and Heroin. She reports that shedoes not drink alcohol. Family History Family History Problem Relation Name Age of Onset Lung disease Mother COPD Mother Lung disease Father Lung cancer Father Heart disease Father Allergies Hydrocodone, Penicillins, Acetaminophen, Diclofenac, Gabapentin, Pregabalin, and Nabumetone Last Recorded Vitals Blood pressure 127/74, pulse 85, temperature 36.2 C (97.2 F), temperature source Temporal, resp. rate 17, height 1.6 m (5' 3 ), weight 122 kg (270 lb), SpO2 95%. Relevant Results MRI L spine 3/20/25 1. Continued interval decrease in a rim enhancing fluid collection within the subcutaneous fat overlying the posterior elements of L4. This may represent postsurgical seroma, however as before sterility of this collection can not be determined on imaging. No new fluid collections are visualized. 2. Stable postsurgical change of left-sided laminectomy at L4-L5 with ventral epidural scarring greater on the left. Moderate bilateral foraminal stenosis at L4-L5 similar to prior. Assessment/Plan Karina Tracy is a 49 y.o. female with history of chronic low back pain, neuropathic pain in bilaterallower extremities, chronic left lower extremity radiculopathy, HCV, GERD, depression, bipolar disease, 09/23/23 s/p percutaneous SCS placement, c/b wound dehiscence 10/14/23 s/p wound washout and SCC and generator removal, 02/06/24 s/p L4-5 MIS discectomy presents with lower extremity pain and weakness. Patient had repeat MRI brain and L spine and no acute surgical intervention per NSGY. Plan: - continue cymbalta, recommend lyrica for neuropathic pain - licoaine patches, voltaren gel, IcyHot as needed - robaxin as needed for pain related to spasms - short course of oxycodone as needed for severe pain although would minimize use - follow-up with NSGY as planned - follow-up with pain management outpatient (patient of Dr. Melgoza) Promise Chirinos MD T [facility] Work Phone: [phone]) [phone] Consult note* Promise Chirinos MD - 06/12/2024 12:00 PM EDTAssociated Order(s): IP CONSULT TO PAIN MANAGEMENT Reason For Consult Pain management History Of Present Illness Karina Tracy is a 49 y.o. female with history of chronic low back pain, neuropathic pain in bilaterallower extremities, chronic left lower extremity radiculopathy, HCV, GERD, depression, bipolar disease, 09/23/23 s/p percutaneous SCS placement, c/b wound dehiscence 10/14/23 s/p wound washout and SCC and generator removal, 02/06/24 s/p L4-5 MIS discectomy, 05/16 p/w worsening back pain, MRI T/L spine w/wo non-compressive enhancing superficial fluid collection near L4 decreased compared to 03/2024 p/w lower extremity pain. MRI brain and MRI lumbar spine performed and showed no clear pathology contributing to pain and weakness necessitating acute neurosurgical intervention. NSGY consulted and signed off. Past Medical History She has a past medical history of Anxiety, Arthritis, Bipolar disorder, Chronic pain disorder, Depression, HCV (hepatitis C virus) (2013), Herniated lumbar intervertebral disc, Liver disease, Lumbar radiculopathy, chronic, Neuropathic pain, Obesity, and Vision loss. Surgical History She has a past surgical history that includes Cholecystectomy; Hysterectomy; Tonsillectomy; Myringotomy w/ tubes (Bilateral); Dental surgery (Bilateral); Bunionectomy (Bilateral); Colonoscopy; Adenoidectomy; Spinal cord stimulator removal (10/14/2023); Spinal cord stimulator implant (09/23/2023); and Spinal cord stimulator trial w/ laminotomy (08/21/2023). Social History She reports that she has been smoking cigarettes. She started smoking about 33 years ago. She has a16.6 pack-year smoking history. She has never used smokeless tobacco. She reports that she does notcurrently use drugs after having used the following drugs: Cocaine and Heroin. She reports that shedoes not drink alcohol. Family History Family History Problem Relation Name Age of Onset Lung disease Mother COPD Mother Lung disease Father Lung cancer Father Heart disease Father Allergies Hydrocodone, Penicillins, Acetaminophen, Diclofenac, Gabapentin, Pregabalin, and Nabumetone Last Recorded Vitals Blood pressure 127/74, pulse 85, temperature 36.2 C (97.2 F), temperature source Temporal, resp. rate 17, height 1.6 m (5' 3 ), weight 122 kg (270 lb), SpO2 95%. Relevant Results MRI L spine 06/11/24 1. Continued interval decrease in a rim enhancing fluid collection within the subcutaneous fat overlying the posterior elements of L4. This may represent postsurgical seroma, however as before sterility of this collection can not be determined on imaging. No new fluid collections are visualized. 2. Stable postsurgical change of left-sided laminectomy at L4-L5 with ventral epidural scarring greater on the left. Moderate bilateral foraminal stenosis at L4-L5 similar to prior. Assessment/Plan Karina Tracy is a 49 y.o. female with history of chronic low back pain, neuropathic pain in bilaterallower extremities, chronic left lower extremity radiculopathy, HCV, GERD, depression, bipolar disease, 09/23/23 s/p percutaneous SCS placement, c/b wound dehiscence 10/14/23 s/p wound washout and SCC and generator removal, 02/06/24 s/p L4-5 MIS discectomy presents with lower extremity pain and weakness. Patient had repeat MRI brain and L spine and no acute surgical intervention per NSGY. Plan: - continue cymbalta, recommend lyrica for neuropathic pain - licoaine patches, voltaren gel, IcyHot as needed - robaxin as needed for pain related to spasms - short course of oxycodone as needed for severe pain although would minimize use - follow-up with NSGY as planned - follow-up with pain management outpatient (patient of Dr. Melgoza) Promise Chirinos MD * Aaron Kilpatrick MD - 06/11/2024 8:55 PM EDTAssociated Order(s): Inpatient consult to Neurosurgery Inpatient consult to Neurosurgery Consult performed by: Aaron Kilpatrick MD Consult ordered by: Mami Hernandez PA-C Date of Service: 06/11/2024 Attending Provider: Ftaou Tellez MD Reason for Consultation: Jerad Collins is being seen today for a consult requested by Fatou Tellez MD for back pain and LLE numbness. Subjective History of Present Illness: Karina is a 49 y.o. female with h/o chronic low back pain, neuropathic pain in bilateral lower extremities, chronic left lower extremity radiculopathy, HCV, GERD, depression, bipolar disease, 09/23/23 s/p percutaneous SCC placement, c/b wound dehiscence 10/14/23 s/p wound washout and SCC and generator removal, 02/06/24 s/p L4-5 MIS discectomy, 05/16 p/w worsening back pain, MRI T/L spine w/wo non-compressive enhancing superficial fluid collection near L4 decreased compared to 03/2024 p/w LLE weakness. Patient states she woke up with decreased sensation in her LLE and her typically back pain. The numbness progressed as the day went on the pain worsened w/ no improvement with her typical regimen. She was starting to drag her leg while she was walking and decided to come in. She has had a few days of urinary incontinence because she cannot make it to the bathroom on time. She has not had any falls, spinal injections, or injuries. She does not take any anticoagulation or antiplatelets. Patient was seen by pain management who recommended cymbalta, robaxin, lidocaine patches, oxycodonewith outpatient follow up. Patient was seen in ED on 05/26, 05/27, and 06/06 with similar complaints. Given toradol morphine with improvement, xrays negative for fracture. Review of Systems 10 point ROS is obtained and negative except the ones mentioned in the HPI Objective Vitals: Vitals: 06/11/24 1951 BP: 143/53 Pulse: (!) 106 Resp: 20 Temp: 36.7 C (98 F) SpO2: 97% Exam: Constitutional: No acute distress Resp: breathing comfortably on room air Cardio: well perfused GI: nondistended MSK: tenderness to palpation of lumbar spine and L flank Neuro: A&Ox3 Cranial Nerves II-XII: PERRL, EOMI, Face symmetric, Facial SILT, Palate/Tongue midline and symmetric, shoulder shrugs symmetric, hearing intact to finger rubs bilaterally Motor: RUE D5 B5 T5 HG/IO 5 RLE HF5 KE5 DF/PF 5, diffuse paresthesia (non-dermatomal) LUE D5 B5 T5 HG/IO 5 LLE HF2 KE4 DF3 PF4, no sensation in LLE LLE 3+ patellar no clonus Psych: appropriate Skin: no obvious lesions Medical History Past Medical History: Diagnosis Date [...] Percutaneous Thoracic Spinal Cord Stimulator Trial TONSILLECTOMY Medications Current Outpatient Medications Medication Instructions albuterol 90 mcg/actuation aerosol [facility] breath activated inhaler 2 puffs, inhalation, Every 4 hours PRN cyclobenzaprine (FLEXERIL) 10 mg, oral, 3 times daily PRN diclofenac sodium (VOLTAREN ARTHRITIS PAIN) 4 g, Topical, 4 times daily PRN DULoxetine (CYMBALTA) 20 mg, oral, Nightly, Do not crush or chew. fluticasone (Flonase) 50 mcg/actuation nasal spray 1 spray, Each Nostril, Daily PRN, Shake gently. Before first use, prime pump. After use, clean tip and replace cap. hydrOXYzine HCL (ATARAX) 25 mg, oral, 3 times daily PRN ibuprofen 800 mg, oral, Every 8 hours PRN lidocaine (Lidoderm) 5 % patch 1 patch, transdermal, Daily, Apply one patch topically once a day for 30 days omeprazole (PRILOSEC) 40 mg, oral, Daily before breakfast, Do not crush or chew. oxyCODONE (ROXICODONE) 10 mg, oral, Every 6 hours PRN oxyCODONE (ROXICODONE) 5 mg, oral, Every 4 hours PRN polyethylene glycol (GLYCOLAX, MIRALAX) 17 g, oral, Daily Diagnostic Results: Lab Results Component Value Date WBC 8.7 05/16/2024 HGB 13.0 05/16/2024 HCT 38.9 05/16/2024 MCV 88 05/16/2024 PLT 271 05/16/2024 Lab Results Component Value Date CREATININE 0.71 05/16/2024 BUN 13 05/16/2024 NA 140 05/16/2024 K 3.9 05/16/2024 CL 105 05/16/2024 CO2 25 05/16/2024 Lab Results Component Value Date INR 1.0 04/30/2024 INR 0.9 12/23/2023 INR 0.9 12/15/2023 PROTIME 11.6 04/30/2024 PROTIME 11.0 12/23/2023 PROTIME 10.5 12/15/2023 === 04/23/24 === CT LUMBAR SPINE WO IV CONTRAST - Impression - No acute fracture or traumatic subluxation. Stable postsurgical changes from left L4 hemilaminectomy. Interval decrease in left paraspinal postsurgical collection likely due to postoperative seroma. Incidental stable left adrenal nodule measures 1.2 x 1.8 cm. Signed by Marsha Munguia MD === 05/15/24 === MR LUMBAR SPINE W AND WO CONTRAST - Impression - 1. Rim enhancing fluid collection in the cutaneous fat overlying the posterior elements of the L4, slightly to the left of midline demonstrates ongoing mild interval decrease in size, now measuring 2.3 x 2.1 x 4.4 cm compared to 3.2 x 3.3 x 5.4 cm on previous imaging dated 04/24/2024. No new fluid collections are identified. 2. No new stenosis is identified in the thoracic or lumbar spine, with similar appearance of the degenerative changes to prior exam on 04/24/2024. No new pathologic leptomeningeal or epidural enhancement is present. I personally reviewed the images/study and I agree with Germaine Solitario DO's (vice president of news) findings as stated. This study was interpreted at [facility], [place], [place]. MACRO: None Signed by: Bernadette Tapia 05/16/2024 3:44 AM Dictation workstation: [id number] Assessment/Plan Assessment: Karina is a 49 y.o. female with h/o chronic low back pain, neuropathic pain in bilateral lower extremities, chronic left lower extremity radiculopathy, HCV, GERD, depression, bipolar disease, 09/23/23 s/p percutaneous SCC placement, c/b wound dehiscence 10/14/23 s/p wound washout and SCC and generator removal, 02/06/24 s/p L4-5 MIS discectomy, 05/16 p/w worsening back pain, MRI T/L spine w/wo non-compressive enhancing superficial fluid collection near L4 decreased compared to 03/2024, 3/4 L spine xray stable alignment, no fx, 06/11 p/w LLE weakness and decreased sensation Plan: MRI brain w/o contrast to assess for infarct given sudden onset LLE weakness and no trauma history MRI lumbar spine w/o contrast to look for spinal pathology given chronic back pain Obtain CBC, RFP, coag, T&S, UA, EKG Further recs pending imaging Aaron Kilpatrick MD Plan not finalized until note signed by attending Cosigned by Elke Adams MD at 06/12/2024 6:07 PM EDT documented in this [facility] Work Phone: [phone]) [phone] internet and e business project manager Note* Significant Event - Mora Medellin MD - 06/12/2024 10:35 AM EDT Patient with previous SCS placement and subsequent removal, and L4-5 MIS discectomy, presenting with left lower extremity weakness and decreased sensation, MRI brain and MRI lumbar spine were performed which showed no clear pathology contributing to the weakness necessitating acute neurosurgical int ervention. Would recommend that patient have follow up with neurosurgery, which we will schedule for around four weeks. Neurosurgery will now sign off. Please chat or page with any questions or concerns. Mora Medellin MD Neurosurgery [facility] Work Phone: [phone]) [phone] Plan of care note* Care Plan - Meri Molina RN - 06/12/2024 3:48 AM EDT The patient's goals for the shift include Decrease pain and to report pain score less than 8/10 by end of shift The clinical goals for the shift include patient will remain safe and free from falls/injury throughout entire shift Over the shift, the patient did not make progress toward the following goals. Barriers to progression include pain assessment. Will medicate patient as needed and as ordered. Recommendations to address these barriers include pain assessment and purposeful Q2H rounding. [facility] Work Phone: [phone] Nurse Note* Meri Molina RN - 06/12/2024 3:39 AM EDT 0200--Patient arrived via wheelchair from ED, accompany with cousin, call light within reach, all possessions within reach. [facility] Work Phone: [phone] Nurse Note* Meri Molina RN - 06/12/2024 3:39 AM EDT 0200--Patient arrived via wheelchair from ED, accompany with cousin, call light within reach, all possessions within reach. [facility] Work Phone: [phone] History and physical note* Elif Ward, ELIZABETH-WAIVER ANALYST - 06/12/2024 1:11 AM EDT History Of Present Illness Jerad Collins is a 49 y.o. 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 Per report of pt paindoes radiate to her buttocks and it is associated with numbness in her left buttock that is also present in her left leg. She is unable to move her left leg when she attempts to ambulate and has to drag her leg behind her upon walking. She also endorses episodes of urinary incontinence which occurswhen her back pain flares up. Patient states she was woke up out of her sleep due to low back pain.She does report that she had one fall prior to admit after she tripped over her dog. She reports that she took Toradol and Flexeril without relief around 0700 and 1500 on 06/11. Neurosurgery was consulted due to back pain and LLE weakness and she was seen by consulting team while in the ED. MRI of the brain and L spine was recommended by neurosurgery to rule out stroke and acute spinal pathology. Labs reviewed and were unremarkable. Utox, ESR, and CRP pending result at time of admit. Upon chart review, pt was seen at [facility] on 06/10 with same chief complaint and discharged after negative w orkup and administration of Toradol 60 mg IM x1 dose and Orphenadrine 60 mg IM x1 dose. Pt was instructed to follow up with her PCP and pain management. She was also seen in ED of other OSH on 05/26, 05/27, and 06/06 with same chief complaint and discharged after negative workup and improvement in pain.Last admit per chart review was at [facility] on hospitalist service on 05/16-05/17 for acute on chronic back pain with radicular pain. She was seen by pain management on 05/16 while admitted as well as neurosurgery. Please see consult note written during her last admit. Per discharge summary dated 05/17 she was evaluated by PT who recommended low intensity therapy. HHC was ordered on discharge. Upon reviewof OARRS she has score of 620 which is concerning. Pt admitted to medicine for acute on chronic back pain and PT/OT consult. ED interventions: Dilaudid 0.5 mg IV push x2 doses and Dilaudid 0.2 mg IV x1 dose Past Medical History Past Medical History: Diagnosis [...] been smoking cigarettes. She started smoking about 33 years ago. She has a16.6 pack-year smoking history. She has never used smokeless tobacco. She reports that she does notcurrently use drugs. She reports that she does not drink alcohol. Family History Family History Problem Relation Name Age of Onset Lung disease Mother COPD Mother Lung disease Father Lung cancer Father Heart disease Father Allergies Hydrocodone, Penicillins, Acetaminophen, Diclofenac, Gabapentin, Pregabalin, and Nabumetone Review of Systems Constitutional: Negative for appetite change, chills and fever. Respiratory: Negative for cough and shortness of breath. Cardiovascular: Negative for chest pain. Gastrointestinal: Negative for abdominal pain, constipation, diarrhea, nausea and vomiting. Genitourinary: Negative for difficulty urinating and dysuria. Urinary incontinence Musculoskeletal: Positive for back pain and gait problem. Skin: Negative. Neurological: Positive for weakness and numbness. Negative for dizziness and headaches. Psychiatric/Behavioral: Negative for confusion. Physical Exam Constitutional: General: She is not in acute distress. HENT: Head: Normocephalic. Mouth/Throat: Mouth: Mucous membranes are dry. Eyes: Extraocular Movements: Extraocular movements intact. Cardiovascular: Rate and Rhythm: Normal rate. Pulses: Normal pulses. Heart sounds: Normal heart sounds. Pulmonary: Effort: Pulmonary effort is normal. No respiratory distress. Breath sounds: Normal breath sounds. Abdominal: General: Bowel sounds are normal. Palpations: Abdomen is soft. Musculoskeletal: Comments: L spine tender to touch Skin: General: Skin is warm and dry. Comments: Multiple tattoos Neurological: Mental Status: She is alert and oriented to person, place, and time. Last Recorded Vitals Blood pressure 158/90, pulse 98, temperature 36.7 C (98 F), temperature source Oral, resp. rate 19,height 1.6 m (5' 3 ), weight 118 kg (260 lb), SpO2 94%. Relevant Results MR lumbar spine w and wo IV contrast Result Date: 06/11/2024 STUDY: MR LUMBAR SPINE W AND WO IV CONTRAST; 06/11/2024 11:01 pm INDICATION: Signs/Symptoms:Low backpain with numbness to the left leg. COMPARISON: MRI lumbar spine 05/16/2024 ACCESSION NUMBER(S): [id number] ORDERING CLINICIAN: MAMI HERNANDEZ TECHNIQUE: Sagittal T1, T2, STIR, axial T1 and T2 weighted images of the lumbar spine were acquired. Additional image acquisition was obtained following intravenous administration of 20 mL Dotarem gadolinium based contrast. FINDINGS: Please note, examination is partially limited secondary to motion artifact. There are 5 lumbarized vertebral bodies, withthe last intervertebral body disc space labeled L5-S1. Alignment: The vertebral alignment is maintained. Vertebrae/Intervertebral Discs: The vertebral bodies demonstrate expected height. Postsurgicalchanges are again noted from left L4 hemilaminectomy. The marrow signal is within normal limits. Mild multilevel disc desiccation and loss of intervertebral body disc height at L4-L5 with associated degenerative endplate changes. Conus: The lower thoracic cord appears unremarkable. The conus terminates at L2. T12-L1: There is no significant central canal or neural foraminal stenosis. Stable appearance of the left neural foraminal perineural cyst. L1-2: Facet arthropathy without significant central canal or neural foraminal stenosis. L2-3: Facet arthropathy without significant spinal canal or neural foraminal stenosis. L3-4: Facet arthropathy without significant spinal canal or neural foraminal stenosis. L4-5: Similar extent of asymmetric left circumferential disc bulge and facet arthropathy with resultant [id number] bilateral neural foraminal stenosis and effacement of the left-gre [id number] lateral recesses. No significant spinal canal stenosis. L5-S1: Circumferential discbulge, facet arthropathy, and limited flavum hypertrophy with resultant moderate right and mild left neural foraminal stenosis, unchanged in extent when compared to prior exam. No significant spinal canal stenosis. Interval decrease of a peripherally enhancing T2 hyperintense fluid collection within the subcutaneous tissues at L3-L4 now measuring up to 4.4 x 2.2 x 1.3 cm (series 13, image 18), previously measuring up to 5.6 x 2.4 x 2.5 cm on prior exam when measured in a similar fashion. Extensive surrounding soft tissue edema is again noted. 1. Continued interval decrease in a rim enhancing fluid collection within the subcutaneous fat overlying the posterior elements of L4, again likely footwear sales representative of a postoperative seroma versus abscess. No new fluid collections are visualized. 2. Similar extent of spondylosis of the lumbar spine,which is not significantly changed when compared to prior exam. I personally reviewed the images/study, and I agree with the findings as stated above by resident physician Dr. Millicent Cano MD. This study was interpreted at [place], [place]. MACRO: None Dictation workstation: [id number] MR brain wo IV contrast Result Date: 06/11/2024 STUDY: MR BRAIN WO IV CONTRAST; 06/11/2024 11:01 pm INDICATION: Signs/Symptoms:CVA R/O. COMPARISON: CT head without contrast 12/10/2019 ACCESSION NUMBER(S): [id number] ORDERING CLINICIAN: CASEY LEON TECHNIQUE: Axial T2, FLAIR, DWI, gradient echo T2 and sagittal and coronal T1 weighted images of brain were acquired. FINDINGS: CSF Spaces: The ventricles, sulci and basal cisterns are within normal limits. Parenchyma: There is no diffusion restriction abnormality to suggest acute infarct. There is no focal parenchymal signal abnormality. There is no mass effect or midline shift. Paranasal Sinuses and Mastoids: Visualized paranasal sinuses and mastoid air cells are unremarkable. 1. No evidence of acute infarct, intracranial mass effect or midline shift. I personally reviewed the images/study, and I agree with the findings as stated above by resident physician Dr. Millicent Cano MD. This study was interpreted at [place], [place]. MACRO: None Dictation workstation: [id number] Results for orders placed or performed during the hospital encounter of 06/11/24 (from the past 24 hours) CBC and Auto Differential Result Value Ref Range WBC 9.7 4.4 - 11.3 x10*3/uL nRBC 0.0 0.0 - 0.0 /100 WBCs RBC 4.51 4.00 - 5.20 x10*6/uL Hemoglobin 13.0 12.0 - 16.0 g/dL Hematocrit 39.1 36.0 - 46.0 % MCV 87 80 - 100 fL MCH 28.8 26.0 - 34.0 pg MCHC 33.2 32.0 - 36.0 g/dL RDW 13.6 11.5 - 14.5 % Platelets 348 150 - 450 x10*3/uL Neutrophils % 71.2 40.0 - 80.0 % Immature Granulocytes %, Automated 0.3 0.0 - 0.9 % Lymphocytes % 21.4 13.0 - 44.0 % Monocytes % 5.3 2.0 - 10.0 % Eosinophils % 1.6 0.0 - 6.0 % Basophils % 0.2 0.0 - 2.0 % Neutrophils Absolute 6.89 1.20 - 7.70 x10*3/uL Immature Granulocytes Absolute, Automated 0.03 0.00 - 0.70 x10*3/uL Lymphocytes Absolute 2.07 1.20 - 4.80 x10*3/uL Monocytes Absolute 0.51 0.10 - 1.00 x10*3/uL Eosinophils Absolute 0.15 0.00 - 0.70 x10*3/uL Basophils Absolute 0.02 0.00 - 0.10 x10*3/uL Comprehensive metabolic panel Result Value Ref Range Glucose 137 (H) 74 - 99 mg/dL Sodium 141 136 - 145 mmol/L Potassium 4.2 3.5 - 5.3 mmol/L Chloride 105 98 - 107 mmol/L Bicarbonate 27 21 - 32 mmol/L Anion Gap 13 10 - 20 mmol/L Urea Nitrogen 9 6 - 23 mg/dL Creatinine 0.74 0.50 - 1.05 mg/dL eGFR >90 >60 mL/min/1.73m*2 Calcium 9.0 8.6 - 10.6 mg/dL Albumin 4.2 3.4 - 5.0 g/dL Alkaline Phosphatase 98 33 - 110 U/L Total Protein 6.6 6.4 - 8.2 g/dL AST 19 9 - 39 U/L Bilirubin, Total 0.4 0.0 - 1.2 mg/dL ALT 21 7 - 45 U/L Magnesium Result Value Ref Range Magnesium 1.93 1.60 - 2.40 mg/dL Coagulation Screen Result Value Ref Range Protime 11.7 9.8 - 12.4 seconds INR 1.1 0.9 - 1.1 aPTT 33 26 - 36 seconds Urinalysis with Reflex Culture and Microscopic Result Value Ref Range Color, Urine Light-Yellow Light-Yellow, Yellow, Dark-Yellow Appearance, Urine Clear Clear Specific [place], Urine 1.018 1.005 - 1.035 pH, Urine 7.0 5.0, 5.5, 6.0, 6.5, 7.0, 7.5, 8.0 Protein, Urine NEGATIVE NEGATIVE, 10 (TRACE), 20 (TRACE) mg/dL Glucose, Urine Normal Normal mg/dL Blood, Urine NEGATIVE NEGATIVE mg/dL Ketones, Urine NEGATIVE NEGATIVE mg/dL Bilirubin, Urine NEGATIVE NEGATIVE mg/dL Urobilinogen, Urine Normal Normal mg/dL Nitrite, Urine NEGATIVE NEGATIVE Leukocyte Esterase, Urine 25 Robert/uL (A) NEGATIVE Microscopic Only, Urine Result Value Ref Range WBC, Urine 11-20 (A) 1-5, NONE /HPF RBC, Urine 1-2 NONE, 1-2, 3-5 /HPF Squamous Epithelial Cells, Urine 1-9 (SPARSE) Reference range not established. /HPF Mucus, Urine FEW Reference range not established. /LPF POCT , urine Result Value Ref Range Preg Test, Ur Negative Scheduled medications DULoxetine, 20 mg, oral, Nightly enoxaparin, 40 mg, subcutaneous, q12h BLAISE lidocaine, 1 patch, transdermal, Daily methocarbamol, 500 mg, oral, q8h BLAISE pantoprazole, 40 mg, oral, Daily polyethylene glycol, 17 g, oral, Daily sennosides-docusate sodium, 2 tablet, oral, BID Continuous medications PRN medications PRN medications: melatonin, oxyCODONE, oxyCODONE Assessment/Plan Acute on Chronic lower back pain Ambulatory dysfunction - 09/23/23 s/p percutaneous SCC placement, c/b wound dehiscence 10/14/23 s/p wound washout and SCC andgenerator removal, 02/06/24 s/p L4-5 MIS discectomy - MRI of brain on admit: No evidence of acute infarct, intracranial mass effect or midline shift. - MRI of L spine with and wo contrast: Continued interval decrease in a rim enhancing fluid collection within the subcutaneous fat overlying the posterior elements of L4 again likely footwear sales representative of a postoperative seroma versus abscess. No new fluid collections are visualized. Similar extent of spondylosis of the lumbar spine which is not significantly changed when compared to prior exam. - ESR and CRP pending result -Neurosurgery was consulted in the ED and recs pending review of imaging. - PT/OT consulted - last seen by pain management on 05/16 who recommended the following:Short-term oral opiates okay but they have stated there is no plan for long-term opiates. Long-term opiates not recommended in chronic neuropathic back pain due to decreased efficacy and high risk for dependency and side effects. Patient will have follow-up with pain management for back injections. Start cymbalta 20 mg at nighttime. Continue Robaxin 500 mg TID. Consider Toradol (pt reports medication is ineffective.) Consider medrol dosepak for nerve inflammation, rule out infection as this may worsen an epidural abscess. Lidocaine patch as needed. Recommend DC of IV narcotics and maintaining with oral opioids for breakthrough pain. Oxycodone 5 mg for moderate pain and 10 mg for severe pain.Please schedule patient for pain management follow up as outpatient. - Multimodal regimen: Robaxin 500 mg PO TID scheduled, Lidocaine patch PRN, Oxycodone 5 mg q4h PRN moderate pain, and Oxycodone 10 mg q4h PRN severe pain (x24 hrs). No IV narcotics will be ordered d/t no evidence of acute findings seen on imaging done on current admit. Pt will need to follow up with pain management as previously recommended. - bowel regimen as follows: Judy Colace 2 tabs PO BID and Miralax 17g every day as constipation canworsen low back pain - per chart review pt has not seen pain management since 05/16; pt told financial writer that she has been calling to schedule follow up appt with pain management but no one answers when she calls to make appt,pt requesting to see pain management in the AM - consider pain management consult in AM GERD - Protonix 40 mg PO every day (therapeutic interchange for Omeprazole) HTN - last BP 158/90 - continue to monitor BP - no home meds - start low dose of Norvasc if BP becomes uncontrolled Dispo: admit to RNF. Pending PT/OT recs. Estimated LOS: 1 day I spent 75 minutes in the professional and overall care of this patient. ROX Walden [facility] Work Phone: [phone]) [phone] History and physical note* ROX Walden - 06/12/2024 1:11 AM EDT History Of Present Illness Jerad Collins is a 49 y.o. 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 Per report of pt paindoes radiate to her buttocks and it is associated with numbness in her left buttock that is also present in her left leg. She is unable to move her left leg when she attempts to ambulate and has to drag her leg behind her upon walking. She also endorses episodes of urinary incontinence which occurswhen her back pain flares up. Patient states she was woke up out of her sleep due to low back pain.She does report that she had one fall prior to admit after she tripped over her dog. She reports that she took Toradol and Flexeril without relief around 0700 and 1500 on 06/11. Neurosurgery was consulted due to back pain and LLE weakness and she was seen by consulting team while in the ED. MRI of the brain and L spine was recommended by neurosurgery to rule out stroke and acute spinal pathology. Labs reviewed and were unremarkable. Utox, ESR, and CRP pending result at time of admit. Upon chart review, pt was seen at [facility] on 06/10 with same chief complaint and discharged after negative w orkup and administration of Toradol 60 mg IM x1 dose and Orphenadrine 60 mg IM x1 dose. Pt was instructed to follow up with her PCP and pain management. She was also seen in ED of other OSH on 05/26, 05/27, and 06/06 with same chief complaint and discharged after negative workup and improvement in pain.Last admit per chart review was at [facility] on hospitalist service on 05/16-05/17 for acute on chronic back pain with radicular pain. She was seen by pain management on 05/16 while admitted as well as neurosurgery. Please see consult note written during her last admit. Per discharge summary dated 05/17 she was evaluated by PT who recommended low intensity therapy. HHC was ordered on discharge. Upon reviewof OARRS she has score of 620 which is concerning. Pt admitted to medicine for acute on chronic back pain and PT/OT consult. ED interventions: Dilaudid 0.5 mg IV push x2 doses and Dilaudid 0.2 mg IV x1 dose Past Medical History Past Medical History: Diagnosis [...] been smoking cigarettes. She started smoking about 33 years ago. She has a16.6 pack-year smoking history. She has never used smokeless tobacco. She reports that she does notcurrently use drugs. She reports that she does not drink alcohol. Family History Family History Problem Relation Name Age of Onset Lung disease Mother COPD Mother Lung disease Father Lung cancer Father Heart disease Father Allergies Hydrocodone, Penicillins, Acetaminophen, Diclofenac, Gabapentin, Pregabalin, and Nabumetone Review of Systems Constitutional: Negative for appetite change, chills and fever. Respiratory: Negative for cough and shortness of breath. Cardiovascular: Negative for chest pain. Gastrointestinal: Negative for abdominal pain, constipation, diarrhea, nausea and vomiting. Genitourinary: Negative for difficulty urinating and dysuria. Urinary incontinence Musculoskeletal: Positive for back pain and gait problem. Skin: Negative. Neurological: Positive for weakness and numbness. Negative for dizziness and headaches. Psychiatric/Behavioral: Negative for confusion. Physical Exam Constitutional: General: She is not in acute distress. HENT: Head: Normocephalic. Mouth/Throat: Mouth: Mucous membranes are dry. Eyes: Extraocular Movements: Extraocular movements intact. Cardiovascular: Rate and Rhythm: Normal rate. Pulses: Normal pulses. Heart sounds: Normal heart sounds. Pulmonary: Effort: Pulmonary effort is normal. No respiratory distress. Breath sounds: Normal breath sounds. Abdominal: General: Bowel sounds are normal. Palpations: Abdomen is soft. Musculoskeletal: Comments: L spine tender to touch Skin: General: Skin is warm and dry. Comments: Multiple tattoos Neurological: Mental Status: She is alert and oriented to person, place, and time. Last Recorded Vitals Blood pressure 158/90, pulse 98, temperature 36.7 C (98 F), temperature source Oral, resp. rate 19,height 1.6 m (5' 3 ), weight 118 kg (260 lb), SpO2 94%. Relevant Results MR lumbar spine w and wo IV contrast Result Date: 06/11/2024 STUDY: MR LUMBAR SPINE W AND WO IV CONTRAST; 06/11/2024 11:01 pm INDICATION: Signs/Symptoms:Low backpain with numbness to the left leg. COMPARISON: MRI lumbar spine 05/16/2024 ACCESSION NUMBER(S): [id number] ORDERING CLINICIAN: MAMI HERNANDEZ TECHNIQUE: Sagittal T1, T2, STIR, axial T1 and T2 weighted images of the lumbar spine were acquired. Additional image acquisition was obtained following intravenous administration of 20 mL Dotarem gadolinium based contrast. FINDINGS: Please note, examination is partially limited secondary to motion artifact. There are 5 lumbarized vertebral bodies, withthe last intervertebral body disc space labeled L5-S1. Alignment: The vertebral alignment is maintained. Vertebrae/Intervertebral Discs: The vertebral bodies demonstrate expected height. Postsurgicalchanges are again noted from left L4 hemilaminectomy. The marrow signal is within normal limits. Mild multilevel disc desiccation and loss of intervertebral body disc height at L4-L5 with associated degenerative endplate changes. Conus: The lower thoracic cord appears unremarkable. The conus terminates at L2. T12-L1: There is no significant central canal or neural foraminal stenosis. Stable appearance of the left neural foraminal perineural cyst. L1-2: Facet arthropathy without significant central canal or neural foraminal stenosis. L2-3: Facet arthropathy without significant spinal canal or neural foraminal stenosis. L3-4: Facet arthropathy without significant spinal canal or neural foraminal stenosis. L4-5: Similar extent of asymmetric left circumferential disc bulge and facet arthropathy with resultant vzzx-sw-opnmbhvy bilateral neural foraminal stenosis and effacement of the left-gre tyqv-vumr-vnsvq lateral recesses. No significant spinal canal stenosis. L5-S1: Circumferential discbulge, facet arthropathy, and limited flavum hypertrophy with resultant moderate right and mild left neural foraminal stenosis, unchanged in extent when compared to prior exam. No significant spinal canal stenosis. Interval decrease of a peripherally enhancing T2 hyperintense fluid collection within the subcutaneous tissues at L3-L4 now measuring up to 4.4 x 2.2 x 1.3 cm (series 13, image 18), previously measuring up to 5.6 x 2.4 x 2.5 cm on prior exam when measured in a similar fashion. Extensive surrounding soft tissue edema is again noted. 1. Continued interval decrease in a rim enhancing fluid collection within the subcutaneous fat overlying the posterior elements of L4, again likely footwear sales representative of a postoperative seroma versus abscess. No new fluid collections are visualized. 2. Similar extent of spondylosis of the lumbar spine,which is not significantly changed when compared to prior exam. I personally reviewed the images/study, and I agree with the findings as stated above by resident physician Dr. Millicent Cano MD. This study was interpreted at [place], [place]. MACRO: None Dictation workstation: [id number] MR brain wo IV contrast Result Date: 06/11/2024 STUDY: MR BRAIN WO IV CONTRAST; 06/11/2024 11:01 pm INDICATION: Signs/Symptoms:CVA R/O. COMPARISON: CT head without contrast 12/10/2019 ACCESSION NUMBER(S): [id number] ORDERING CLINICIAN: CASEY LEON TECHNIQUE: Axial T2, FLAIR, DWI, gradient echo T2 and sagittal and coronal T1 weighted images of brain were acquired. FINDINGS: CSF Spaces: The ventricles, sulci and basal cisterns are within normal limits. Parenchyma: There is no diffusion restriction abnormality to suggest acute infarct. There is no focal parenchymal signal abnormality. There is no mass effect or midline shift. Paranasal Sinuses and Mastoids: Visualized paranasal sinuses and mastoid air cells are unremarkable. 1. No evidence of acute infarct, intracranial mass effect or midline shift. I personally reviewed the images/study, and I agree with the findings as stated above by resident physician Dr. Millicent Cano MD. This study was interpreted at [facility], [place], [place]. MACRO: None Dictation workstation: [id number] Results for orders placed or performed during the hospital encounter of 06/11/24 (from the past 24 hours) CBC and Auto Differential Result Value Ref Range WBC 9.7 4.4 - 11.3 x10*3/uL nRBC 0.0 0.0 - 0.0 /100 WBCs RBC 4.51 4.00 - 5.20 x10*6/uL Hemoglobin 13.0 12.0 - 16.0 g/dL Hematocrit 39.1 36.0 - 46.0 % MCV 87 80 - 100 fL MCH 28.8 26.0 - 34.0 pg MCHC 33.2 32.0 - 36.0 g/dL RDW 13.6 11.5 - 14.5 % Platelets 348 150 - 450 x10*3/uL Neutrophils % 71.2 40.0 - 80.0 % Immature Granulocytes %, Automated 0.3 0.0 - 0.9 % Lymphocytes % 21.4 13.0 - 44.0 % Monocytes % 5.3 2.0 - 10.0 % Eosinophils % 1.6 0.0 - 6.0 % Basophils % 0.2 0.0 - 2.0 % Neutrophils Absolute 6.89 1.20 - 7.70 x10*3/uL Immature Granulocytes Absolute, Automated 0.03 0.00 - 0.70 x10*3/uL Lymphocytes Absolute 2.07 1.20 - 4.80 x10*3/uL Monocytes Absolute 0.51 0.10 - 1.00 x10*3/uL Eosinophils Absolute 0.15 0.00 - 0.70 x10*3/uL Basophils Absolute 0.02 0.00 - 0.10 x10*3/uL Comprehensive metabolic panel Result Value Ref Range Glucose 137 (H) 74 - 99 mg/dL Sodium 141 136 - 145 mmol/L Potassium 4.2 3.5 - 5.3 mmol/L Chloride 105 98 - 107 mmol/L Bicarbonate 27 21 - 32 mmol/L Anion Gap 13 10 - 20 mmol/L Urea Nitrogen 9 6 - 23 mg/dL Creatinine 0.74 0.50 - 1.05 mg/dL eGFR >90 >60 mL/min/1.73m*2 Calcium 9.0 8.6 - 10.6 mg/dL Albumin 4.2 3.4 - 5.0 g/dL Alkaline Phosphatase 98 33 - 110 U/L Total Protein 6.6 6.4 - 8.2 g/dL AST 19 9 - 39 U/L Bilirubin, Total 0.4 0.0 - 1.2 mg/dL ALT 21 7 - 45 U/L Magnesium Result Value Ref Range Magnesium 1.93 1.60 - 2.40 mg/dL Coagulation Screen Result Value Ref Range Protime 11.7 9.8 - 12.4 seconds INR 1.1 0.9 - 1.1 aPTT 33 26 - 36 seconds Urinalysis with Reflex Culture and Microscopic Result Value Ref Range Color, Urine Light-Yellow Light-Yellow, Yellow, Dark-Yellow Appearance, Urine Clear Clear Specific [place], Urine 1.018 1.005 - 1.035 pH, Urine 7.0 5.0, 5.5, 6.0, 6.5, 7.0, 7.5, 8.0 Protein, Urine NEGATIVE NEGATIVE, 10 (TRACE), 20 (TRACE) mg/dL Glucose, Urine Normal Normal mg/dL Blood, Urine NEGATIVE NEGATIVE mg/dL Ketones, Urine NEGATIVE NEGATIVE mg/dL Bilirubin, Urine NEGATIVE NEGATIVE mg/dL Urobilinogen, Urine Normal Normal mg/dL Nitrite, Urine NEGATIVE NEGATIVE Leukocyte Esterase, Urine 25 Robert/uL (A) NEGATIVE Microscopic Only, Urine Result Value Ref Range WBC, Urine 11-20 (A) 1-5, NONE /HPF RBC, Urine 1-2 NONE, 1-2, 3-5 /HPF Squamous Epithelial Cells, Urine 1-9 (SPARSE) Reference range not established. /HPF Mucus, Urine FEW Reference range not established. /LPF POCT , urine Result Value Ref Range Preg Test, Ur Negative Scheduled medications DULoxetine, 20 mg, oral, Nightly enoxaparin, 40 mg, subcutaneous, q12h BLAISE lidocaine, 1 patch, transdermal, Daily methocarbamol, 500 mg, oral, q8h BLAISE pantoprazole, 40 mg, oral, Daily polyethylene glycol, 17 g, oral, Daily sennosides-docusate sodium, 2 tablet, oral, BID Continuous medications PRN medications PRN medications: melatonin, oxyCODONE, oxyCODONE Assessment/Plan Acute on Chronic lower back pain Ambulatory dysfunction - 09/23/23 s/p percutaneous SCC placement, c/b wound dehiscence 10/14/23 s/p wound washout and SCC andgenerator removal, 02/06/24 s/p L4-5 MIS discectomy - MRI of brain on admit: No evidence of acute infarct, intracranial mass effect or midline shift. - MRI of L spine with and wo contrast: Continued interval decrease in a rim enhancing fluid collection within the subcutaneous fat overlying the posterior elements of L4 again likely footwear sales representative of a postoperative seroma versus abscess. No new fluid collections are visualized. Similar extent of spondylosis of the lumbar spine which is not significantly changed when compared to prior exam. - ESR and CRP pending result -Neurosurgery was consulted in the ED and recs pending review of imaging. - PT/OT consulted - last seen by pain management on 05/16 who recommended the following:Short-term oral opiates okay but they have stated there is no plan for long-term opiates. Long-term opiates not recommended in chronic neuropathic back pain due to decreased efficacy and high risk for dependency and side effects. Patient will have follow-up with pain management for back injections. Start cymbalta 20 mg at nighttime. Continue Robaxin 500 mg TID. Consider Toradol (pt reports medication is ineffective.) Consider medrol dosepak for nerve inflammation, rule out infection as this may worsen an epidural abscess. Lidocaine patch as needed. Recommend DC of IV narcotics and maintaining with oral opioids for breakthrough pain. Oxycodone 5 mg for moderate pain and 10 mg for severe pain.Please schedule patient for pain management follow up as outpatient. - Multimodal regimen: Robaxin 500 mg PO TID scheduled, Lidocaine patch PRN, Oxycodone 5 mg q4h PRN moderate pain, and Oxycodone 10 mg q4h PRN severe pain (x24 hrs). No IV narcotics will be ordered d/t no evidence of acute findings seen on imaging done on current admit. Pt will need to follow up with pain management as previously recommended. - bowel regimen as follows: Judy Colace 2 tabs PO BID and Miralax 17g every day as constipation canworsen low back pain - per chart review pt has not seen pain management since 05/16; pt told financial writer that she has been calling to schedule follow up appt with pain management but no one answers when she calls to make appt,pt requesting to see pain management in the AM - consider pain management consult in AM GERD - Protonix 40 mg PO every day (therapeutic interchange for Omeprazole) HTN - last BP 158/90 - continue to monitor BP - no home meds - start low dose of Norvasc if BP becomes uncontrolled Dispo: admit to RNF. Pending PT/OT recs. Estimated LOS: 1 day I spent 75 minutes in the professional and overall care of this patient. ROX Walden documented in this [facility] Work Phone: 1(880) 626-591803-20-2025 Consult note* Aaron Kilpatrick MD - 06/11/2024 8:55 PM EDTAssociated Order(s): Inpatient consult to Neurosurgery Inpatient consult to Neurosurgery Consult performed by: Aaron Kilpatrick MD Consult ordered by: Mami Hernandez PA-C Date of Service: 06/11/2024 Attending Provider: Fatou Tellez MD Reason for Consultation: Jerad Collins is being seen today for a consult requested by Fatou Tellez MD for back pain and LLE numbness. Subjective History of Present Illness: Karina is a 49 y.o. female with h/o chronic low back pain, neuropathic pain in bilateral lower extremities, chronic left lower extremity radiculopathy, HCV, GERD, depression, bipolar disease, 09/23/23 s/p percutaneous SCC placement, c/b wound dehiscence 10/14/23 s/p wound washout and SCC and generator removal, 02/06/24 s/p L4-5 MIS discectomy, 05/16 p/w worsening back pain, MRI T/L spine w/wo non-compressive enhancing superficial fluid collection near L4 decreased compared to 03/2024 p/w LLE weakness. Patient states she woke up with decreased sensation in her LLE and her typically back pain. The numbness progressed as the day went on the pain worsened w/ no improvement with her typical regimen. She was starting to drag her leg while she was walking and decided to come in. She has had a few days of urinary incontinence because she cannot make it to the bathroom on time. She has not had any falls, spinal injections, or injuries. She does not take any anticoagulation or antiplatelets. Patient was seen by pain management who recommended cymbalta, robaxin, lidocaine patches, oxycodonewith outpatient follow up. Patient was seen in ED on 05/26, 05/27, and 06/06 with similar complaints. Given toradol morphine with improvement, xrays negative for fracture. Review of Systems 10 point ROS is obtained and negative except the ones mentioned in the HPI Objective Vitals: Vitals: 06/11/241950 BP: 143/53 Pulse: (!) 106 Resp: 20 Temp: 36.7 C (98 F) SpO2: 97% Exam: Constitutional: No acute distress Resp: breathing comfortably on room air Cardio: well perfused GI: nondistended MSK: tenderness to palpation of lumbar spine and L flank Neuro: A&Ox3 Cranial Nerves II-XII: PERRL, EOMI, Face symmetric, Facial SILT, Palate/Tongue midline and symmetric, shoulder shrugs symmetric, hearing intact to finger rubs bilaterally Motor: RUE D5 B5 T5 HG/IO 5 RLE HF5 KE5 DF/PF 5, diffuse paresthesia (non-dermatomal) LUE D5 B5 T5 HG/IO 5 LLE HF2 KE4 DF3 PF4, no sensation in LLE LLE 3+ patellar no clonus Psych: appropriate Skin: no obvious lesions Medical History Past Medical History: Diagnosis Date [...] Percutaneous Thoracic Spinal Cord Stimulator Trial TONSILLECTOMY Medications Current Outpatient Medications Medication Instructions albuterol 90 mcg/actuation aerosol powdr breath activated inhaler 2 puffs, inhalation, Every 4 hours PRN cyclobenzaprine (FLEXERIL) 10 mg, oral, 3 times daily PRN diclofenac sodium (VOLTAREN ARTHRITIS PAIN) 4 g, Topical, 4 times daily PRN DULoxetine (CYMBALTA) 20 mg, oral, Nightly, Do not crush or chew. fluticasone (Flonase) 50 mcg/actuation nasal spray 1 spray, Each Nostril, Daily PRN, Shake gently. Before first use, prime pump. After use, clean tip and replace cap. hydrOXYzine HCL (ATARAX) 25 mg, oral, 3 times daily PRN ibuprofen 800 mg, oral, Every 8 hours PRN lidocaine (Lidoderm) 5 % patch 1 patch, transdermal, Daily, Apply one patch topically once a day for 30 days omeprazole (PRILOSEC) 40 mg, oral, Daily before breakfast, Do not crush or chew. oxyCODONE (ROXICODONE) 10 mg, oral, Every 6 hours PRN oxyCODONE (ROXICODONE) 5 mg, oral, Every 4 hours PRN polyethylene glycol (GLYCOLAX, MIRALAX) 17 g, oral, Daily Diagnostic Results: Lab Results Component Value Date WBC 8.7 05/16/2024 HGB 13.0 05/16/2024 HCT 38.9 05/16/2024 MCV 88 05/16/2024 PLT 271 05/16/2024 Lab Results Component Value Date CREATININE 0.71 05/16/2024 BUN 13 05/16/2024 NA 140 05/16/2024 K 3.9 05/16/2024 CL 105 05/16/2024 CO2 25 05/16/2024 Lab Results Component Value Date INR 1.0 04/30/2024 INR 0.9 12/23/2023 INR 0.9 12/15/2023 PROTIME 11.6 04/30/2024 PROTIME 11.0 12/23/2023 PROTIME 10.5 12/15/2023 === 04/23/24 === CT LUMBAR SPINE WO IV CONTRAST - Impression - No acute fracture or traumatic subluxation. Stable postsurgical changes from left L4 hemilaminectomy. Interval decrease in left paraspinal postsurgical collection likely due to postoperative seroma. Incidental stable left adrenal nodule measures 1.2 x 1.8 cm. Signed by Marsha Munguia MD === 05/15/24 === MR LUMBAR SPINE W AND WO CONTRAST - Impression - 1. Rim enhancing fluid collection in the cutaneous fat overlying the posterior elements of the L4, slightly to the left of midline demonstrates ongoing mild interval decrease in size, now measuring 2.3 x 2.1 x 4.4 cm compared to 3.2 x 3.3 x 5.4 cm on previous imaging dated 04/24/2024. No new fluid collections are identified. 2. No new stenosis is identified in the thoracic or lumbar spine, with similar appearance of the degenerative changes to prior exam on 04/24/2024. No new pathologic leptomeningeal or epidural enhancement is present. I personally reviewed the images/study and I agree with Germaine Solitario DO's (vice president of news) findings as stated. This study was interpreted at [place], [place]. MACRO: None Signed by: Bernadette Tapia 05/16/2024 3:44 AM Dictation workstation: [id number] Assessment/Plan Assessment: Karina is a 49 y.o. female with h/o chronic low back pain, neuropathic pain in bilateral lower extremities, chronic left lower extremity radiculopathy, HCV, GERD, depression, bipolar disease, 09/23/23 s/p percutaneous SCC placement, c/b wound dehiscence 10/14/23 s/p wound washout and SCC and generator removal, 02/06/24 s/p L4-5 MIS discectomy, 05/16 p/w worsening back pain, MRI T/L spine w/wo non-compressive enhancing superficial fluid collection near L4 decreased compared to 03/2024, 3/ L spine xray stable alignment, no fx, 06/11 p/w LLE weakness and decreased sensation Plan: MRI brain w/o contrast to assess for infarct given sudden onset LLE weakness and no trauma history MRI lumbar spine w/o contrast to look for spinal pathology given chronic back pain Obtain CBC, RFP, coag, T&S, UA, EKG Further recs pending imaging Aaron Kilpatrick MD Plan not finalized until note signed by attending Cosigned by Elke Adams MD at 06/12/2024 6:07 PM EDT [facility] Work Phone: [phone]) 689-649703-20-2025 Physician Emergency department Note* Mami Hernandez PA-C - 06/11/2024 8:42 PM EDT History of Present Illness History provided by: Patient Limitations to History: None External Records Reviewed with Brief Summary: Notes reviewed in patient's chart HPI: HPI This is a 49-year-old female with past medical history significant for left L4-5 herniated lumbar intervertebral discs s/p MIS hemilaminotomy, partial medial facetectomy, and microdiscectomy (01/2024) with 04/24/24 MRI showing likely postoperative seroma and 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 Patient states she was woke up from her low back pain. Denies new injury to cause the pain. States she did take Toradol and Flexeril without relief around 7 AM and 3 PM. States the pain does spread into her buttocks, tingling noted down the right leg. States she does have numbness spreading from the left buttock down her leg in which she is unable to move the leftleg. States she had to drag her leg behind her upon walking. Denies IV drug use, anticoagulation, saddle anesthesia, bowel or bladder incontinence, fever, chills, body aches. States she is slightly short of breath due to pain. Physical Exam Physical Exam Constitutional: General: She is in acute distress. HENT: Head: Normocephalic. Mouth/Throat: Mouth: Mucous membranes are moist. Eyes: Extraocular Movements: Extraocular movements intact. Cardiovascular: Rate and Rhythm: Regular rhythm. Tachycardia present. Pulmonary: Effort: Pulmonary effort is normal. Breath sounds: Normal breath sounds. Abdominal: General: Abdomen is flat. Musculoskeletal: Cervical back: Normal range of motion. Lumbar back: Tenderness and bony tenderness present. Comments: Patient unable to move left extremity; Right lower extremity with normal ROM of all joints Skin: General: Skin is warm. Neurological: Mental Status: She is alert and oriented to person, place, and time. Comments: Numbness noted to the entirety of the left leg including buttock Psychiatric: Mood and Affect: Mood normal. Behavior: Behavior normal. Thought Content: Thought content normal. Judgment: Judgment normal. 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 Patient denies mechanism of injury, IV druguse, anticoagulation. Also endorsing left leg numbness which is new for her. On exam patient is in acute distress from pain. Lumbar spine tender to palpation as well as lateralportions of the lower back. Patient does have notable numbness to the left buttock and entirety of the left leg. Patient unable to move left extremity. Based on this I have consulted neurosurgery in which they have agreed to see her. I have ordered MRI of the lumbar spine in which neurosurgery agrees with as well as basic labs. Patient given Dilaudid for pain management. CBC without leukocytosis or anemia. At this time I have signed out to Casey Leon PA-C with patient in stable condition and with pending labs, imaging, neurosurgery to see. Further treatment dependable on results and recommendations from neurosurgery team. ---- Differential diagnoses considered include but are not limited to: Epidural abscess, cauda equina, nerve impingement, bony abnormality Independent Result Review and Interpretation: Relevant laboratory and radiographic results were reviewed and independently interpreted by myself. As necessary, they are commented on in the ED Course. The patient was discussed with the following consultants/services: Neurosurgery Visit Vitals BP 143/53 (BP Location: Right arm, Patient Position: Sitting) Pulse (!) 106 Temp 36.7 C (98 F) (Oral) Resp 20 Ht 1.6 m (5' 3 ) Wt 118 kg (260 lb) SpO2 97% BMI 46.06 kg/m OB Status Hysterectomy Smoking Status Every Day BSA 2.29 m Labs Reviewed CBC WITH AUTO DIFFERENTIAL Result Value WBC 9.7 nRBC 0.0 RBC 4.51 Hemoglobin 13.0 Hematocrit 39.1 MCV 87 MCH 28.8 MCHC 33.2 RDW 13.6 Platelets 348 Neutrophils % 71.2 Immature Granulocytes %, Automated 0.3 Lymphocytes % 21.4 Monocytes % 5.3 Eosinophils % 1.6 Basophils % 0.2 Neutrophils Absolute 6.89 Immature Granulocytes Absolute, Automated 0.03 Lymphocytes Absolute 2.07 Monocytes Absolute 0.51 Eosinophils Absolute 0.15 Basophils Absolute 0.02 URINALYSIS WITH REFLEX CULTURE AND MICROSCOPIC Narrative: The following orders were created for panel order Urinalysis with Reflex Culture and Microscopic. Procedure Abnormality Status --------- ------ Urinalysis with Reflex C...[[id number]] Extra Urine Castro Tube[[id number]] Please view results for these tests on the individual orders. COMPREHENSIVE METABOLIC PANEL MAGNESIUM COAGULATION SCREEN URINALYSIS WITH REFLEX CULTURE AND MICROSCOPIC EXTRA URINE CASTRO TUBE POCT , URINE MR lumbar spine w and wo IV contrast (Results Pending) ED Course: Disposition At this time I have signed out to Casey Leon PA-C with patient in stable condition and with pending labs, imaging, neurosurgery to see. Further treatment dependable on results and recommendations from neurosurgery team. Procedures Procedures This was a shared visit with an ED attending. The patient was seen and discussed with the ED attending Mami Hernandez PA-C Emergency Medicine Mami Hernandez PA-C 06/11/242120 Cosigned by Fatou Tellez MD at 06/12/2024 12:54 AM EDT Associated attestation - Fatou Tellez MD - 06/12/2024 12:54 AM EDT This patient was seen by the advanced practice provider. I have personally performed a substantive portion of the encounter. I have seen and examined the patient; agree with the workup, evaluation, MDM, management and diagnosis. The care plan has been discussed. I personally saw the patient and made/approved the management plan and take responsibility for the patient management. 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 Patient states she was woke up from her low back pain. Denies new injury to cause the pain. States she did take Toradol and Flexeril without relief around 7 AM and 3 PM. States the pain does spread into her buttocks, tingling noted down the right leg. States she does have numbness spreading from the left buttock down her leg in which she is unable to move the leftleg. States she had to drag her leg behind her upon walking. Denies IV drug use, anticoagulation, saddle anesthesia, bowel or bladder incontinence, fever, chills, body aches. States she is slightly short of breath due to pain. Physical Exam Physical Exam Constitutional: General: She is in acute distress. HENT: Head: Normocephalic. Mouth/Throat: Mouth: Mucous membranes are moist. Eyes: Extraocular Movements: Extraocular movements intact. Cardiovascular: Rate and Rhythm: Regular rhythm. Tachycardia present. Pulmonary: Effort: Pulmonary effort is normal. Breath sounds: Normal breath sounds. Abdominal: General: Abdomen is flat. Musculoskeletal: Cervical back: Normal range of motion. Lumbar back: Tenderness and bony tenderness present. Comments: Patient unable to move left extremity; Right lower extremity with normal ROM of all joints Skin: General: Skin is warm. Neurological: Mental Status: She is alert and oriented to person, place, and time. Comments: Numbness noted to the entirety of the left leg including buttock Psychiatric: Mood and Affect: Mood normal. Behavior: Behavior normal. Thought Content: Thought content normal. Judgment: Judgment normal. 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 Patient denies mechanism of injury, IV druguse, anticoagulation. Also endorsing left leg numbness which is new for her. On exam patient is in acute distress from pain. Lumbar spine tender to palpation as well as lateralportions of the lower back. Patient does have notable numbness to the left buttock and entirety of the left leg. Patient unable to move left extremity. Based on this I have consulted neurosurgery in which they have agreed to see her. I have ordered MRI of the lumbar spine in which neurosurgery agrees with as well as basic labs. Patient given Dilaudid for pain management. CBC without leukocytosis or anemia. At this time I have signed out to Casey Leon PA-C with patient in stable condition and with pending labs, imaging, neurosurgery to see. Further treatment dependable on results and recommendations from neurosurgery team. ---- Differential diagnoses considered include but are not limited to: Epidural abscess, cauda equina, nerve impingement, bony abnormality Independent Result Review and Interpretation: Relevant laboratory and radiographic results were reviewed and independently interpreted by myself. As necessary, they are commented on in the ED Course. The patient was discussed with the following consultants/services: Neurosurgery Visit Vitals BP 143/53 (BP Location: Right arm, Patient Position: Sitting) Pulse (!) 106 Temp 36.7 C (98 F) (Oral) Resp 20 Ht 1.6 m (5' 3 ) Wt 118 kg (260 lb) SpO2 97% BMI 46.06 kg/m OB Status Hysterectomy Smoking Status Every Day BSA 2.29 m Labs Reviewed CBC WITH AUTO DIFFERENTIAL Result Value WBC 9.7 nRBC 0.0 RBC 4.51 Hemoglobin 13.0 Hematocrit 39.1 MCV 87 MCH 28.8 MCHC 33.2 RDW 13.6 Platelets 348 Neutrophils % 71.2 Immature Granulocytes %, Automated 0.3 Lymphocytes % 21.4 Monocytes % 5.3 Eosinophils % 1.6 Basophils % 0.2 Neutrophils Absolute 6.89 Immature Granulocytes Absolute, Automated 0.03 Lymphocytes Absolute 2.07 Monocytes Absolute 0.51 Eosinophils Absolute 0.15 Basophils Absolute 0.02 URINALYSIS WITH REFLEX CULTURE AND MICROSCOPIC Narrative: The following orders were created for panel order Urinalysis with Reflex Culture and Microscopic. Procedure Abnormality Status --------- ------ Urinalysis with Reflex C...[[id number]] Extra Urine Castro Tube[[id number]] Please view results for these tests on the individual orders. COMPREHENSIVE METABOLIC PANEL MAGNESIUM COAGULATION SCREEN URINALYSIS WITH REFLEX CULTURE AND MICROSCOPIC EXTRA URINE CASTRO TUBE POCT , URINE MR lumbar spine w and wo IV contrast (Results Pending) ED Course: Disposition At this time I have signed out to Casey Leon PA-C with patient in stable condition and with pending labs, imaging, neurosurgery to see. Further treatment dependable on results and recommendations from neurosurgery team. Procedures Procedures This was a shared visit with an ED attending. The patient was seen and discussed with the ED attending Mami Hernandez PA-C Emergency Medicine Mami Hernandez PA-C 06/11/242120 Cosigned by Fatou Tellez MD at 06/12/2024 12:54 AM EDT Associated attestation - Fatou Tellez MD - 06/12/2024 12:54 AM EDT This patient was seen by the advanced practice provider. I have personally performed a substantive portion of the encounter. I have seen and examined the patient; agree with the workup, evaluation, MDM, management and diagnosis. The care plan has been discussed. I personally saw the patient and made/approved the management plan and take responsibility for the patient management. * Chong Stone RN - 06/11/2024 7:49 PM EDT PT presents to ED via triage for chief complaint of lower back pain. PT states she slipped and fellthis morning and landed on her lower back. PT denies hitting her head, had no LOC and is not on blood thinners. PT has a history of L4-L5 herniated discs and a mass at T12-L1. PT has had difficulty ambulating since the fall and has increased pain in her left leg. [facility] Work Phone: 1(486) 498-128903-20-2025 Emergency department Triage note* Chong Stone RN - 06/11/2024 7:49 PM EDT PT presents to ED via triage for chief complaint of lower back pain. PT states she slipped and fellthis morning and landed on her lower back. PT denies hitting her head, had no LOC and is not on blood thinners. PT has a history of L4-L5 herniated discs and a mass at T12-L1. PT has had difficulty ambulating since the fall and has increased pain in her left leg. [facility] Work Phone: 1(273) 343-811203-19-2025 Evaluation + Plan noteExtracted from:Title: ED NoteAuthor:Annette Watkins, Balbina HDate:06/10/24 1. Chronic lower back pain ( M54.50: Low back pain, unspecified) Other chronic pain (G89.29: Other chronic pain) Orders: acetaminophen-oxycodone, 1 tab(s), Tab, Oral, Once, Stop date 06/10/24 11:24:00 EDT, STAT, Start date 06/10/24 11:24:00 EDT ketorolac, 60 mg = 2 mL, Injection, IntraMuscular, Once, Stop date 06/10/24 11:24:00 EDT, STAT, Start date 06/10/24 11:24:00 EDT, 06/10/24 11:24:00 EDT orphenadrine, 60 mg = 2 mL, Injection, IntraMuscular, Once, Stop date 06/10/24 11:24:00 EDT, STAT, Start date 06/10/24 11:24:00 EDT, 06/10/24 11:24:00 EDT Future Appointments Appointment Date:06/23/2024 09:00:00 AM Scheduled Provider:FLOR JONES Location:[facility] Appointment Type: New Patient - Adult Future Scheduled Tests Laboratory* TSH With T4fr Reflex 07/17/23 * Urinalysis with Micro 07/17/23 * Lipid Panel 07/17/23 * Drug Screen Urine 07/17/23 Radiology* MA Mamm Screen w/CAD if perf and 3D Kenan 07/17/23 [facility] 03-19-2025 Hospital Discharge instructions Patient Education 06/10/2024 11:38:38 Chronic Back Pain Chronic Back Pain Chronic [...] pull them backward. 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 Take brief [...] to your body. ?Avoid twisting. Medicines Take qoif-mcm-plcsote and prescription medicines only as told by [...] keep your pee (urine) pale yellow. ?Take wugs-psl-rqdicea or prescription medicines. ?Eat foods that are [...] provider. Document Revised: 10/29/2022 Document Reviewed: 10/29/2022 [employer] Patient Education 2023 [employer]. Follow Up Care 06/10/2024 11:08:37 With:KARLOSOPHIE AMARI Address: [address] [place] [address] Business (1) When:06/13/2024 11:32:54 Comments:Make sure to follow-up with your primary doctor as discussed and your pain management. Return to the emergency room if your pain gets worse, bowel or bladder incontinence, numbness/tingling in the saddle/groin area or any new symptoms. [facility] 03-19-2025 NoteED Patient Education Note Orthopedics Chronic Back [...] them backward. ??? 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 ??? Take [...] body. ? Avoid twisting. Medicines ??? Take eule-keq-wensagd and prescription medicines only as told by [...] your pee (urine) pale yellow. ? Take xawa-iur-kdfmyfh or prescription medicines. ? Eat foods that [...] provider. Document Revised: 10/29/2022 Document Reviewed: 10/29/2022 [email or web address] Patient Education ? 2023 [employer].[facility] 06-06-2024 Hospital Discharge instructions* Discharge Instructions* Jennifer Pierce MD - 06/06/2024 12:32 PM EDT Please rest but continue to go about daily activities. No heavy lifting or strenuous activity untilsymptoms resolve. Apply heat to the affected area three times per day for one week. Please take medications as prescribed. Follow-up with your primary care physician if symptoms persist. It is important that you return to the emergency department for worsening of symptoms, weakness of the legs, numbness of the legs, inability to urinate, loss of bowels, numbness in the groin region, fever, chills, abdominal pain, development of new symptoms, or any other medical concerns. documented in this encounterPreAvita Health [id number] Physician Emergency department Note* Jennifer Pierce MD - 06/06/2024 12:22 PM EDT I have seen Jerad Tracy [...] H&P, emergency department evaluation, and medical decision-making. Electronically signed by: Jennifer Pierce MD, 06/06/2024 12:22 PM [id number] Emergency department Note* Jennifer Pierce MD - 06/06/2024 12:22 PM EDT I have seen Jerad Tracy [...] H&P, emergency department evaluation, and medical decision-making. Electronically signed by: Jennifer Pierce MD, 06/06/2024 12:22 PM * Maddie Dan RN - 06/06/2024 11:58 AM EDT Pt arrives triage ambulatory with lower back pain. Pt has chronic back with bulging disc hx. Pt denies injury. Pt is alert and oriented, resp even and unlabored. documented in this encounterOhio [facility] East [id number] Emergency department Note* Maddie Dan RN - 06/06/2024 11:58 AM EDT Pt arrives triage ambulatory with lower back pain. Pt has chronic back with bulging disc hx. Pt denies injury. Pt is alert and oriented, resp even and unlabored. [facility] HospitalIccfsi90-22-1687 NoteHNO ID: [id number] Author: CRISSY ALANIZ, DO Service: ? Author Type: Physician Type: Progress Notes Filed: 06/05/2024 13:42 Note Text: The patient did not show up for this appointment.[facility] 05-31-2024 NoteED Patient Education Note Neurology Migraine Headache A migraine headache is an intense pulsing or throbbing pain on one or both sides of the head. Migraine headaches may also cause other symptoms, such as nausea, vomiting, and sensitivity to light and noise. A migraine headache can last from 4 hours to 3 days. Talk with your health care provider about what things may bring on (trigger) your migraine headaches. What are the causes? The exact cause is not known. However, a migraine may be caused when nerves in the brain get irritated and release chemicals that cause blood vessels to become inflamed. This inflammation causes pain. Migraines may be triggered or caused by: ??? Smoking. ??? Medicines, such as: ? Nitroglycerin, which is used to treat chest pain. ? control pills. ? Estrogen. ? Certain blood pressure medicines. ??? Foods or drinks that contain nitrates, glutamate, aspartame, MSG, or tyramine. ??? Certain foods or drinks, such as aged cheeses, chocolate, alcohol, or caffeine. ??? Doing physical activity that is very hard. Other triggers may include: ??? Menstruation. ??? . ??? Hunger. ??? Stress. ??? Getting too much or too little sleep. ??? Weather changes. ??? Tiredness (fatigue). What increases the risk? The following factors may make you more likely to have migraine headaches: ??? Being between the ages of 25-55 years old. ??? Being female. ??? Having a family history of migraine headaches. ??? Being . ??? Having a mental health condition, such as depression or anxiety. ??? Being obese. What are the signs or symptoms? The main symptom of this condition is pulsing or throbbing pain. This pain may: ??? Happen in any area of the head, such as on one or both sides. ??? Make it hard to do daily activities. ??? Get worse with physical activity. ??? Get worse around bright lights, loud noises, or smells. Other symptoms may include: ??? Nausea. ??? Vomiting. ??? Dizziness. Before a migraine headache starts, you may get warning signs (an aura). An aura may include: ??? Seeing flashing lights or having blind spots. ??? Seeing bright spots, halos, or zigzag lines. ??? Having tunnel vision or blurred vision. ??? Having numbness or a tingling feeling. ??? Having trouble talking. ??? Having muscle weakness. After a migraine ends, you may have symptoms. These may include: ??? Feeling tired. ??? Trouble concentrating. How is this diagnosed? A migraine headache can be diagnosed based on: ??? Your symptoms. ??? A physical exam. ??? Tests, such as: ? A CT scan or an MRI of the head. These tests can help rule out other causes of headaches. ? Taking fluid from the spine (lumbar puncture) to examine it (cerebrospinal fluid analysis, or CSFanalysis). How is this treated? This condition may be treated with medicines that: ??? Relieve pain and nausea. ??? Prevent migraines. Treatment may also include: ??? Acupuncture. ??? Lifestyle changes like avoiding foods that trigger migraine headaches. ??? Learning ways to control your body (biofeedback). ??? Talk therapy to help you know and deal with negative thoughts (cognitive behavioral therapy). Follow these instructions at home: Medicines ??? Take xdso-uvn-rxcilcs and prescription medicines only as told by your provider. ??? Ask your provider if the medicine prescribed to you: ? Requires you to avoid driving or using machinery. ? Can cause constipation. You may need to take these actions to prevent or treat constipation: ? Drink enough fluid to keep your pee (urine) pale yellow. ? Take lcuw-sad-bewuavm or prescription medicines. ? Eat foods that are high in fiber, such as beans, whole grains, and fresh fruits and vegetables. ? Limit foods that are high in fat and processed sugars, such as fried or sweet foods. Lifestyle ??? Do not drink alcohol. ??? Do not use any products that contain nicotine or tobacco. These products include cigarettes, chewing tobacco, and vaping devices, such as e-cigarettes. If you need help quitting, ask your provider. ??? Get 7?9 hours of sleep each night, or the amount recommended by your provider. ??? Find ways to manage stress, such as meditation, deep breathing, or yoga. ??? Try to exercise regularly. This can help lessen how bad and how often your migraines occur. General instructions ??? Keep a journal to find out what triggers your migraines, so you can avoid those things. For example, write down: ? What you eat and drink. ? How much sleep you get. ? Any change to your diet or medicines. ??? If you have a migraine headache: ? Avoid things that make your symptoms worse, such as bright lights. ? Lie down in a dark, quiet room. ? Do not drive or use machinery. ? Ask your provider what activities are safe for you while you have symptoms. ??? Keep all follow-up visits. Your provider will monitor your s (more content not included)...[facility] Hospital Discharge instructions* Discharge Instructions* Samantha Cain PA-C - 05/27/2024 8:34 PM EST Please keep your upcoming appointment with neurosurgery on 06/03/2024 * Attachments The following attachments cannot be sent through Care Everywhere. * Low Back Pain Discharge Instructions (Malagasy) documented in [facility]Un[facility] Work Phone: 1(460) 317-389203-05-2025 Emergency department Triage note* Lo Dan RN - 05/27/2024 7:16 PM EST Pt presents to ED with a c/o chronic back pain, pt fell 2 days ago, having increased pain [facility] Work Phone: 1(459) 343-120303-05-2025 Emergency department Note* Lo Dan RN - 05/27/2024 7:16 PM EST Pt presents to ED with a c/o chronic back pain, pt fell 2 days ago, having increased pain documented in this encounterUn[facility] Work Phone: 1(627) 521-538903-04-2025 Hospital Discharge instructions* Discharge Instructions* Crystal Lewis PA-C - 05/26/2024 3:34 PM EST All pain medication needs to come from your treating doctors. * Attachments The following attachments cannot be sent through Care Everywhere. * Low Back Pain Discharge Instructions (Malagasy) documented in this [facility] Work Phone: 1(241) 489-308403-01-2025 Evaluation + Plan noteExtracted from:Title: ED NoteAuthor:Gumaro MILES, Manuel MarinoDate:05/23/24 1. Right flank pain (R10.9: Unspecified abdominal pain) 2. Urinary frequency (R35.0: Frequency of micturition) Eloped from emergency department (Z53.21: Procedure and treatment not carried out due to patient leaving prior to being seen by health care provider) Future Scheduled Tests Laboratory* TSH With T4fr Reflex 07/17/23 * Urinalysis with Micro 07/17/23 * Lipid Panel 07/17/23 * Drug Screen Urine 07/17/23 Radiology* MA Mamm Screen w/CAD if perf and 3D Kenan 07/17/23 [facility] 02-23-2025 History of Present illness Narrative* Candis Singletary RN - 05/17/2024 8:54 AM EST 05/17/24 0851 Discharge Planning Living Arrangements Spouse/significant other;Children (Home with significant other and 19 yo son.) Support Systems Spouse/significant other;Children;Family members Assistance Needed None. Type of Residence Private residence (Single family, ranch.) Do you have animals or pets at home? Yes Type of Animals or Pets Dogs Who is requesting discharge planning? Patient Home or Post Acute Services Post acute facilities (Rehab/SNF/etc) Type of Post Acute Facility Services Other (Comment) (Outpatient PT.) Expected Discharge Disposition Home Does the patient need discharge transport arranged? No ([employer] other will provide.) Financial Resource Strain How hard is it for you to pay for the very basics like food, housing, medical care, and heating? Not hard Housing Stability In the last 12 months, was there a time when you were not able to pay the mortgage or rent on time?N At any time in the past 12 months, were you homeless or living in a fpc (including now)? N Transportation Needs In the past 12 months, has lack of transportation kept you from medical appointments or from getting medications? no In the past 12 months, has lack of transportation kept you from meetings, work, or from getting things needed for daily living? No Patient Choice Provider Choice list and [facility] website (https://medicare.gov/care-compare#search) for post-acute Quality and Resource Measure Data were provided and reviewed with: Patient Intensity of Service Intensity of Service 0-30 min Assessment Note: Met with pt and introduced myself as wound care center consultant and member of the Care Transitions team for discharge planning. Pt was independent prior to admission. Pt arranges for ride to drs appts. Pt's address, phone number and contact information was verified. PT is recommending low intensity. Pt is agreeable to outpatient PT. Pt was provided with a list of outpatient therapy locations. Requested [facility] to request a prescription for outpatient PT. Pt does not have any other questions/concerns at this time. Pt's significant other will provide transportation home. Previous Home Care: None. DME: [employer]. Pharmacy: [facility] in [place]. Pt was not taking medications prior to admission. Pt is requesting meds 2beds for discharge prescriptions. Falls: Denies PCP: None. Pt will need a new PCP appt. Readmission: Pt was recently admitted from 05/01-05/02 with chronic back pain. Pt was discharge home. Candis LAAR, RN- Transitional Senior Branch Manager (TCC) [phone] * April Frank, PT - 05/16/2024 3:01 PM EST Physical Therapy Physical Therapy Evaluation Patient Name: Jerad Collins Department: [facility] ED Room: [id number] Today's Date: 05/16/2024 Time Calculation Start Time: 1233 Stop Time: 1246 Time Calculation (min): 13 min Assessment/Plan PT Assessment PT Assessment Results: Decreased strength, Decreased range of motion, Impaired balance, Decreased mobility, Pain Rehab Prognosis: Good Barriers to Discharge Home: Physical needs Physical Needs: Ambulating household distances limited by function/safety, Intermittent mobility assistance needed, Stair navigation into home limited by function/safety Strengths: Ability to acquire knowledge, Housing layout Assessment Comment: Patient admitted for worsening of low back pain. Patient presents with decreased functional mobility tolerance 2/2 high pain and radiculopathy. Recommend ongoing skilled PT services to maximimize independence. End of Session Patient Position: Alarm off, not on at start of session, Up in chair (patient remains in ED hallway) IP OR SWING BED PT PLAN Inpatient or Swing Bed: Inpatient PT Plan Treatment/Interventions: Transfer training, Gait training, Stair training, Balance training, Therapeutic exercise, Positioning PT Plan: Ongoing PT PT Frequency: 3 times per week PT Discharge Recommendations: Low intensity level of continued care Equipment Recommended upon Discharge: Wheeled walker (patient owns) PT Recommended Transfer Status: Assistive device, Stand by assist PT - OK to Discharge: Yes (Evaluation completed, recommendation documented) Subjective General Visit Information: General Reason for Referral: worsening low back pain with L>R radicular leg pain Past Medical History Relevant to Rehab: chronic low back pain, 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 Home Living: Home Living Type of Home: House Lives With: (Fiance) Home Adaptive Equipment: Walker rolling or standard Home Layout: One level Home Access: Stairs to enter with rails Entrance Stairs-Rails: Left Entrance Stairs-Number of Steps: 2 Prior Level of Function: Prior Function Per Pt/Caregiver Report Level of [place]: Independent with ADLs and functional transfers Receives Help From: Family ADL Assistance: Independent Homemaking Assistance: Independent Ambulatory Assistance: Independent (has been using RW recently and reports in last 3 days she has only been walking to/from bathroom and kitchen due to pain) Precautions: Precautions Medical Precautions: Fall precautions, Spinal precautions Objective Pain: Pain Assessment 0-10 (Numeric) Pain Score: (at rest, patient reports pain tolerable . after activity, patient reports 8/10 pain with radiculapathy to LLE) Cognition: Cognition Overall Cognitive Status: Within Functional Limits General Assessments: Sensation Sensation Comment: patient reports no sensation LLE when she is having radicular symptoms, RLE intact sensation Static Sitting Balance Static Sitting-Balance Support: No upper extremity supported Static Sitting-Level of Assistance: Independent Static Sitting-Comment/Number of Minutes: overtly uncomfortable, rocks to self soothe at times Dynamic Sitting Balance Dynamic Sitting-Balance Support: No upper extremity supported Dynamic Sitting-Level of Assistance: Independent Dynamic Sitting-Comments: patient able to flex down to floor to pecan picker shoes and don shoes ind, painful though. Static Standing Balance Static Standing-Balance Support: Bilateral upper extremity supported Static Standing-Level of Assistance: Independent Static Standing-Comment/Number of Minutes: RW (antalgic posture) Dynamic Standing Balance Dynamic Standing-Balance Support: Bilateral upper extremity supported Dynamic Standing-Level of Assistance: Close supervision Dynamic Standing-Comments: antalgic Functional Assessments: Bed Mobility Bed Mobility: Yes Bed Mobility 1 Bed Mobility 1: Side lying left to sit Level of Assistance 1: Independent Bed Mobility Comments 1: preference for sidelying as position of comfort, transferred 2x Transfers Transfer: Yes Transfer 1 Technique 1: Sit to stand, Stand to sit Transfer Device 1: Walker Transfer Level of Assistance 1: Modified independent Trials/Comments 1: transferred from high stretcher, antalgic Ambulation/Gait Training Ambulation/Gait Training Performed: Yes Ambulation/Gait Training 1 Device 1: Rolling walker Assistance 1: Close supervision Quality of Gait 1: Wide base of support, Decreased step length, Antalgic, Shuffling gait Comments/Distance (ft) 1: tolerated 25ft 2/2 pain, overtly antalgic, forward flexed. no buckling orLOB, slow cautious pattern Extremity/Trunk Assessments: RUE RUE : Within Functional Limits LUE LUE: Within Functional Limits AROM RLE (degrees) RLE AROM Comment: WFL Strength RLE RLE Overall Strength: (4/5) AROM LLE (degrees) LLE AROM Comment: prior to mobility and patient did not have radicular symptoms, LLE ROM WFL as observed her donning shoe. But after mobility and radicular symptoms present, minimal AROM noted in LLE2/2 pain Strength LLE LLE Overall Strength: Greater than or equal to 3/5 as evidenced by functional mobility (except whenpatient with active radicular symptoms into LLE. patient strength <3/5 as observed post mobility. patient reports 2/2 pain) Outcome Measures: [facility] Basic Mobility Turning from your back [...] chair): None To walk in hospital room: A little Climbing 3-5 steps with railing: A little Basic Mobility - Total Score: 21 Encounter Problems Encounter Problems (Active) PT Problem Patient will ambulate 100ft distance using walker with modified independent Start: 05/16/24 Expected End: 05/30/24 Patient will ascend and descend 2 steps with rail with modified independent Start: 05/16/24 Expected End: 05/30/24 Education Documentation Home Exercise Program, taught by April Frank PT at 05/16/2024 3:01 PM. Learner: Patient Readiness: Acceptance Method: Explanation Response: Verbalizes Understanding Body Mechanics, taught by April Frank PT at 05/16/2024 3:01 PM. Learner: Patient Readiness: Acceptance Method: Explanation Response: Verbalizes Understanding Mobility Training, taught by April Frank PT at 05/16/2024 3:01 PM. Learner: Patient Readiness: Acceptance Method: Explanation Response: Verbalizes Understanding Education Comments No comments found. * Rebel Dexter, PharmD - 05/16/2024 1:12 PM EST Pharmacy Medication History Review Jerad Collins is a 49 y.o. female admitted for Chronic midline low back pain without sciatica. Pharmacy reviewed the patient's [id number] medications and allergies for accuracy. Medications ADDED: Voltaren gel, flonase nasal spray Medications CHANGED: none Medications REMOVED: none The list below reflects the updated SALES SERVICE COORDINATOR list. Prior to Admission Medications Prescriptions Last Dose Informant albuterol 90 mcg/actuation aerosol powdr breath activated inhaler Self Sig: Inhale 2 puffs every 4 hours if needed for wheezing or shortness of breath. cyclobenzaprine (Flexeril) 10 mg tablet Self Sig: Take 1 tablet (10 mg) by mouth 3 times a day as needed for muscle spasms. diclofenac sodium (Voltaren Arthritis Pain) 1 % gel Self Sig: Apply 4.5 inches (4 g) topically 4 times a day as needed. fluticasone (Flonase) 50 mcg/actuation nasal spray Self Sig: Administer 1 spray into each nostril once daily as needed for rhinitis or allergies. Shake gently. Before first use, prime pump. After use, clean tip and replace cap. hydrOXYzine HCL (Atarax) 25 mg tablet Self Sig: Take 1 tablet (25 mg) by mouth 3 times a day as needed for anxiety. ibuprofen 800 mg tablet Self Sig: Take 1 tablet (800 mg) by mouth every 8 hours if needed for mild pain (1 - 3), fever (temp greater than 38.0 C) or headaches. lidocaine (Lidoderm) 5 % patch Self Sig: Place 1 patch over 12 hours on the skin once daily as needed (Local pain). Remove & discard patch within 12 hours or as directed by MD. lidocaine (Lidoderm) 5 % patch Self Sig: Place 1 patch over 12 hours on the skin once daily. Apply one patch topically once a day for 30 days omeprazole (PriLOSEC) [address] capsule Self Sig: Take 2 capsules (40 mg) by mouth once daily in the morning. Take before meals. Do not crush orchew. oxyCODONE (Roxicodone) 10 mg immediate release tablet Self Sig: Take 1 tablet (10 mg) by mouth every 6 hours if needed for severe pain (7 - 10). oxyCODONE (Roxicodone) 5 mg immediate release tablet Self Sig: Take 1 tablet (5 mg) by mouth every 4 hours if needed for moderate pain (4 - 6). polyethylene glycol (Glycolax, Miralax) 17 gram packet Self Sig: Take 17 g by mouth 3 times a day as needed (constipation second line). Facility-Administered Medications: None Patient accepts M2B at discharge. Sources: [facility] Pharmacy dispense history Patient interview Good historian Chart Review Care Everywhere Neuro OV note / med list 05/05/24 Additional Comments: Patient was prescribed carvedilol 6.25mg, take 1/2 tablet twice a day filled at pharmacy on 03/02/24x 90 day supply- she stopped taking this on her own due to side effects (states prescribing doctor is aware) and plans to discuss at her next PCP appointment Rebel Dexter PharmD Transitions of Care Pharmacist 05/16/24 Secure Chat preferred If no response call [phone] or [employer] Rec documented in this [facility] Work Phone: [phone] Hospital course Narrative* Rosalio Dexter MD - 05/17/2024 7:37 AM EST Discharge Diagnosis Acute on chronic lower back pain with radicular pain Issues Requiring Follow-Up Please follow-up with pain management. Please follow-up primary care provider. Discharge Meds Medication List START taking these medications DULoxetine [address] capsule; Commonly known as: Cymbalta; Take 1 capsule (20 mg) by mouth once daily at bedtime. Do not crush or chew. methylPREDNISolone 4 mg tablet; Commonly known as: Medrol; Take 5 tablets (20 mg) by mouth once daily for 1 day, THEN 4 tablets (16 mg) once daily for 1 day, THEN 3 tablets (12 mg) once daily for 1 day, THEN 2 tablets (8 mg) once daily for 1 day, THEN 1 tablet (4 mg) once daily for 1 day.; Start taking on: May 17, 2024 CHANGE how you take these medications cyclobenzaprine 10 mg tablet; Commonly known as: Flexeril; Take 1 tablet (10 mg) by mouth 3 times a day as needed (back pain).; What changed: reasons to take this ibuprofen 800 mg tablet; Take 1 tablet (800 mg) by mouth every 8 hours if needed (any level of pain in back).; What changed: reasons to take this lidocaine 5 % patch; Commonly known as: Lidoderm; Place 1 patch over 12 hours on the skin once daily. Apply one patch topically once a day for 30 days; What changed: Another medication with the same name was removed. Continue taking this medication, and follow the directions you see here. * oxyCODONE 10 mg immediate release tablet; Commonly known as: Roxicodone; Take 1 tablet (10 mg) by mouth every 6 hours if needed for severe pain (7 - 10).; What changed: Another medication with the same name was changed. Make sure you understand how and when to take each. * oxyCODONE 5 mg immediate release tablet; Commonly known as: Roxicodone; Take 1 tablet (5 mg) by mouth every 4 hours if needed (breakthrough pain).; What changed: reasons to take this polyethylene glycol 17 gram packet; Commonly known as: Glycolax, Miralax; Take 17 g by mouth once daily.; What changed: when to take this, reasons to take this * This list has 2 medication(s) that are the same as other medications prescribed for you. Read the directions carefully, and ask your doctor or other care provider to review them with you. CONTINUE taking these medications albuterol 90 mcg/actuation aerosol powdr breath activated inhaler; Inhale 2 puffs every 4 hours if needed for wheezing or shortness of breath. fluticasone 50 mcg/actuation nasal spray; Commonly known as: Flonase hydrOXYzine HCL 25 mg tablet; Commonly known as: Atarax; Take 1 tablet (25 mg) by mouth 3 times a day as needed for anxiety. omeprazole [address] capsule; Commonly known as: PriLOSEC; Take 2 capsules (40 mg) by mouth once daily in the morning. Take before meals. Do not crush or chew. Voltaren Arthritis Pain 1 % gel; Generic drug: diclofenac sodium Test Results Pending At Discharge None. Hospital Course Jerad Tracy is a is a 49 y.o. female with PMHx of chronic low back pain, neuropathic pain in bilateral lower extremities, chronic left lower extremity radiculopathy, HCV, GERD, depression, bipolar disease, 09/23/23 s/p percutaneous SCC placement, c/b wound dehiscence 10/14/23 s/p wound washout and SCC and generator removal, 02/06/24 s/p L4-5 MIS discectomy, presenting to [facility] ED due to worsening lower back pain no longer controlled by home pain regimen. Patient recently had been discharged 2 weeks prior with NSAIDs and muscle relaxants. At that time she had reported improved pain. Came back with worsening pain and reported functional problems. Patient started on multimodal pain regimen altho ugh she has allergies to gabapentin and Lyrica and due to liver fibrosis reports she cannot take Tylenol. Patient placed on oxycodone and IV Dilaudid initially. Chronic pain management consulted. In discussion with chronic pain management, long-term narcotics not recommended. They recommended to discontinue the IV opiates. Okay to use the oxycodone as short-term treatment but they have already informed the patient and made recommendations that the opiates would not be a long-term management. They have indicated that in chronic neuropathic back pain opiates not always effective and leads to high risk for dependency and side effects. Question with chronic pain management they are okay with a short term amount. Outpatient follow-up with pain management to discuss injections. Patient will also continue follow-up with neurosurgery to discuss reimplantation of a stimulator and monitoring of the seroma. PT saw the patient and recommended low intensity and she is agreeable with home health care. Patient overall stable and can be discharged home. Assessment and plan: Acute on Chronic lower back pain with radicular pain -09/23/23 s/p percutaneous SCC placement, c/b wound dehiscence 10/14/23 s/p wound washout and SCC and generator removal, 02/06/24 s/p L4-5 MIS discectomy, -Recent discharge on 05/02/24 where back pain was reportedly controlled on PO NSAIDs and Flexeril. -MRI T & L Spine completed showing decreased fluid collection at L4 and no new fluid collections or stenosis identified. -ESR 47 and CRP 1.18, both down trending. -Neurosurgery was consulted in the ED, recommended pain management and no acute surgical intervention. Advised follow up scheduled 06/03/24. -PT has seen the patient and recommended low intensity and patient is agreeable. -Chronic pain management consulted and plan discussed with them. They have recommended to discontinue the IV opiates. Short-term oral opiates okay but they have stated there is no plan for long-term opiates. Long-term opiates not recommended in chronic neuropathic back pain due to decreased efficacy and high risk for dependency and side effects. -Patient will have follow-up with pain management for back injections. -For now will continue ibuprofen 800 mg every 8 hours as needed, patient cautioned about risk for GI issues and renal issues, continue PPI, continue Cymbalta 20 mg at bedtime, 7 days worth of the oxycodone 10 mg every 6 as needed for severe pain and 5 mg every 4 hours for breakthrough. Patient already informed that this is short-term and there will be no plan for long-term narcotics. Patient alsodischarged on Medrol Dosepak. Continue Flexeril. Due to allergies patient cannot have gabapentin orLyrica, patient advised to talk to her prepleater about whether she can use small amount of Tylenol. Ambulatory dysfunction -PT has seen the patient and recommended low intensity. Patient is agreeable. Home health ordered. Urinary Retention -Small amounts of urinary retention only, not significant. GERD -Continued home Prilosec. Anxiety -Continued home Atarax 25 mg TID PRN Time spent caring for patient and coordinating discharge total 35 minutes. Pertinent Physical Exam At Time of Discharge General: Lying in bed without distress. Sleeping peacefully when I first entered the room. Arousable and able to answer questions well. Cooperative. Severely obese. Skin: No rashes or ulcerations. HEENT: Sclera is white. Mucous membranes moist. Cardiac: Regular rate and rhythm, S1/S2 normal. Lungs: Clear to auscultation bilaterally, no wheezing or crackles, no accessory muscle use at rest. Abdomen: Soft, nontender, moderately obese abdomen, BS + Extremities: No cyanosis. No lower extremity edema. Neurologic: Alert and oriented x3. No focal deficits. Psychiatric: Appropriate mood and behavior. Currently no agitation. Outpatient Follow-Up Future Appointments Date Time Provider Department Center 06/03/2024 3:30 PM Elke Adams MD [id number] [facility] 06/29/2024 8:00 AM Chidi Joseph MD [id number] [place] Rosalio Dexter MD documented in this [facility] Work Phone: [phone]) 135-995002-23-2025 Plan of care note* Care Plan - Christian Scales RN - 05/17/2024 6:03 AM EST The patient's goals for the shift include relax The clinical goals for the shift include pt will have reduced pain during the night Pt met shift goals and was able to sleep [facility] Work Phone: [phone] Miscellaneous Notes* Care Plan - Christian Scales RN - 05/17/2024 6:03 AM EST The patient's goals for the shift include relax The clinical goals for the shift include pt will have reduced pain during the night Pt met shift goals and was able to sleep * Significant Event - Rashad Christiansen MD - 05/16/2024 10:41 AM EST Neurosurgery sign off: Pre most recent note from neurosurgery clinic: Jerad Tracy is here for neurosurgical follow-up s/p left L4-5 MIS hemilaminotomy, partial medial facetectomy, and microdiscectomy done on 02/06/24. She has history of prior SCS placement c/b infection and subsequent removal (Dr. Elke Adams). She has also seen Dr. Melgoza in the past, but not since her MIS lami/discectomy. She had about 6 weeks of relatively good pain relief after her surgery, but her pain got worse after this. Her pain is mostly in her low back and that is what bothers her the most. She also gets pain down her left leg in nondermatomal distribution ( whole leg ). She occasionally gets a right anterior thigh pain as well. She has ended up in the emergency department for severe pain multiple times. She is taking flexeril, oxycodone, NSAIDs. I personally reviewed MRI L spine done on 04/24/2024 and compared to pre-op MRI (01/20/2024). There is a seroma - inconsequential/expected after this surgery given her morbid obesity. This will resolve/scar over a long period of time. And, yes, there is some residual disc bulging/scar tissue, but looks overall more open compared to pre-op MRI. I do not have a lot else to offer her. I would not recommend any sort of fusion/revision discectomy at this time. Her distribution of her pain in non-dermatomal. I think she may benefit from GABRIEL/RFA from pain management and consider replacement of her SCS. No additional recs. Defer to pain management and follow up with pain management. Neurosurgery will sign off at this time. Patient and plan discussed with Dr. Woodard. documented in this [facility] Work Phone: [phone] Consult note* Tomer Zuniga MD - 05/16/2024 11:26 AM ESTAssociated Order(s): IP CONSULT TO PAIN MANAGEMENT Subjective Reason For Consult Back and leg pain History of chronic pain, requested recommendations for medications and or procedures History Of Present Illness Jerad Collins is a 49 y.o. female presenting with Back Pain. 49 yo F with a PMHx of L L4-5 hemilaminotomy, parital medial facetectomy, and microdiscectomy on 02/06/24, SCS placement c/b infection and explantation, and MIS lami/discectomy presenting to the ED for worsening low back pain and L > R radiating leg pain that is worse with any movement or activity and relieves with rest. Pt noted the pain has existed for several years but has progressively been worsening since her discectomy in January. Several days ago, the pain flared up and she had worsening LLE weakness, radiating pain, and numbness. This did not subside and she presented to the ED. Pt participated in a course of PT after her procedure, which did not improve symptoms significantly. She has not previously had any injections. She has been taking ketorolac and ibuprofen for pain, which has not improved symptoms. She previously had a spinal cord stimulator in place, which providedsignificant relief but has been explanted due to infection and is planning to follow up with neurosurgery outpatient for replacement of SCS. She additionally notes bladder incontinence when her pain flares up. Past Medical History She has a past medical history of Anxiety, Arthritis, Bipolar disorder, Chronic pain disorder, Depression, HCV (hepatitis C virus) (2013), Herniated lumbar intervertebral disc, Liver disease, Lumbar radiculopathy, chronic, Neuropathic pain, Obesity, and Vision loss. Surgical History She has a past surgical history that includes Cholecystectomy; Hysterectomy; Tonsillectomy; Myringotomy w/ tubes (Bilateral); Dental surgery (Bilateral); Bunionectomy (Bilateral); Colonoscopy; Adenoidectomy; Spinal cord stimulator removal (10/14/2023); Spinal cord stimulator implant (09/23/2023); and Spinal cord stimulator trial w/ laminotomy (08/21/2023). Social History She reports that she has been smoking cigarettes. She started smoking about 33 years ago. She has a16.6 pack-year smoking history. She has never used smokeless tobacco. She reports that she does notcurrently use drugs. She reports that she does not drink alcohol. Family History Family History Problem Relation Name Age of Onset Lung disease Mother COPD Mother Lung disease Father Lung cancer Father Heart disease Father Allergies Penicillins, Diclofenac, Gabapentin, Lyrica [pregabalin], Tylenol [acetaminophen], and Nabumetone Review of Systems 13-point ROS done and negative except as above. Objective Physical Exam General: NAD, well groomed, well nourished Eyes: Non-icteric sclera, EOMI Ears, Nose, Mouth, and Throat: External ears and nose appear to be without deformity or rash. No lesions or masses noted. Hearing is grossly intact. Neck: Trachea midline Respiratory: Nonlabored breathing Cardiovascular: +2 peripheral edema Skin: No rashes or open lesions/ulcers identified on skin. MSK: 3/5 LLE dorsi/plantar flexion, 4/5 RLE dorsi/plantarflexion, Extremity: No sensation to pinprick or light touch on LLE, decreased pinprick on RLE. No overlying rash. Back: Palpation: Significant point tenderness to palpation over lumbar paraspinous muscles. Straight leg raise: positive at 10 degrees bilaterally Neurologic: Cranial nerves grossly intact. Strength: 3/5 LLE dorsi/plantar flexion, 4/5 RLE dorsi/plantarflexion, Sensation: No sensation to pinprick or light touch on LLE, decreased pinprick DTRs:normal and symmetric throughout [place]: absent Clonus: absent Psychiatric: Alert, orientation to person, place, and time. Cooperative. Last Recorded Vitals Blood pressure 141/82, pulse 88, temperature 35.8 C (96.4 F), temperature source Temporal, resp. rate 19, height 1.6 m (5' 3 ), weight 113 kg (250 lb), SpO2 99%. Relevant Results Imaging personally reviewed and independently interpreted MR lumbar spine 05/15/2024 There are 5 lumbar type vertebral bodies. The last well-formed disc space is labeled L5-S1. Lumbar vertebral alignment is maintained without evidence of new spondylolisthesis. Vertebrae/Intervertebral Discs: The vertebral bodies demonstrate expected height. Postsurgical changes are noted from left L4 hemilaminectomy. The marrow signal is within normal limits. No abnormal enhancing lesions. Mild disc desiccation and loss of intervertebral disc height at L4-5 with degenerative endplate changes. Conus: The conus terminates at L2. T12-L1: Perineural cyst in the left neural foramen as described above. No significant spinal canal or neural foraminal stenosis. L1-2: Facet arthrosis without significant spinal canal or neural foraminal stenosis. L2-3: Facet arthrosis without significant spinal canal or neural foraminal stenosis. L3-4: Facet arthrosis without significant spinal canal or neural foraminal stenosis. L4-5: Asymmetric left disc bulge and facet arthrosis narrowing the tczr-urfgizc-juiu-right lateral recesses and causing nmjx-ql-xuyfcyga bilateral neural foraminal stenosis. No significant spinal canal stenosis. L5-S1: Disc bulge, facet arthrosis, and ligamentum flavum hypertrophy causing moderate right and mild left neural foraminal stenosis. No significant spinal canal stenosis. Re-demonstration of a peripherally enhancing fluid collection of the level of L3-4 on the left measuring 4.4 x 2.4 x 2.5 (previously 5.4 x 3.7 x 3.4). Findings may reflect a postoperative seroma or abscess (series 19, image 34 and 17, image 17). There is surrounding soft tissue edema and susceptibility artifact. Assessment/Plan Assessment: 49-year-old female with significant history of prior discectomy in January 2024 as well as prior spinal cord stimulator with explantation due to infection. Patient is presenting for worsening low back and left lower extremity radicular pain. Given patient's symptoms, significant pain, and MRI findings of possible seroma or abscess her radiculopathy may be secondary to this fluid collection. Given this finding, there is no pain intervention that can be done acutely to significantly improve her pain. Multimodal pain management is warranted to manage her acute phase of pain and she can follow-up outpatient with pain management for evaluation of an epidural steroid injection. We discussed the typical natural history of acute low back pain in adults and the fact that 90% will improve with conservative measures in approximately 8 weeks; we also discussed the likelihood of having bulging disks on MRIs in adults over the age of 40 being very high, even though they may not be problematic. We discussed her imaging findings and conservative treatment options. We discussed the risk and benefits of epidural steroid injections including paralysis, epidural hematoma, infection, post dural puncture headache, transiently worsening pain, lack of efficacy; we discussed reasonable expectations for pain control. Recommendations: -Start cymbalta 20 mg at nighttime -Continue Robaxin 500 mg TID -Consider toradol -Consider medrol dosepak for nerve inflammation, rule out infection as this may worsen an epidural abscess -Lidocaine patch as needed -Recommend DC of IV narcotics and maintaining with oral opioids for breakthrough pain -Oxycodone 5 mg for moderate pain, 10 mg for severe pain -Agree with bowel regimen as constipation can worsen low back pain -Please schedule patient for pain management follow up as outpatient Tomer Zuniga MD PGY-2 Anesthesiology This note was generated with the aid of dictation software, there may be typographical errors despite my attempts at proofreading. Cosigned by Khanh Rainey MD at 05/16/2024 12:03 PM EST Associated attestation - Khanh Rainey MD - 05/16/2024 12:03 PM EST I discussed the patient and the plan with the resident. Agree with the assessment/plan with adjustments as listed below. Patient can follow-up with us in our outpatient clinic however would likely hold off on any acute interventional pain procedures given seroma from previous lumbar spine surgeries and infected spinal cord stimulator. Patient is allergic to multiple neuromodulators. Seems like patient was previously started on topiramate in the past, can consider topiramate at home dose or if weaned off of topiramate start 25mg nightly for 3 days then 25mg BID if tolerating or consider starting Cymbalta 30 mg at nighttime and discuss potential side effects with the patient and if she is having side effects can discontinue. Recommend medical management with Robaxin 500 mg 3 times daily, Toradol per primary team, lidocaine patch/ice/heat as needed, oxycodone 5 mg every 6 hours as needed for moderate pain and oxycodone 10 mg every 6 hours as needed for severe pain. Can consider Medrol Dosepak however would defer to primary team at this point. Khanh Rainey MD PGY5 Interventional Pain Fellow [facility] Work Phone: [phone] 194-198102-22-2025 Consult note* Tomer Zuniga MD - 05/16/2024 11:26 AM ESTAssociated Order(s): IP CONSULT TO PAIN MANAGEMENT Subjective Reason For Consult Back and leg pain History of chronic pain, requested recommendations for medications and or procedures History Of Present Illness Jerad Collins is a 49 y.o. female presenting with Back Pain. 49 yo F with a PMHx of L L4-5 hemilaminotomy, parital medial facetectomy, and microdiscectomy on 02/06/24, SCS placement c/b infection and explantation, and MIS lami/discectomy presenting to the ED for worsening low back pain and L > R radiating leg pain that is worse with any movement or activity and relieves with rest. Pt noted the pain has existed for several years but has progressively been worsening since her discectomy in January. Several days ago, the pain flared up and she had worsening LLE weakness, radiating pain, and numbness. This did not subside and she presented to the ED. Pt participated in a course of PT after her procedure, which did not improve symptoms significantly. She has not previously had any injections. She has been taking ketorolac and ibuprofen for pain, which has not improved symptoms. She previously had a spinal cord stimulator in place, which providedsignificant relief but has been explanted due to infection and is planning to follow up with neurosurgery outpatient for replacement of SCS. She additionally notes bladder incontinence when her pain flares up. Past Medical History She has a past medical history of Anxiety, Arthritis, Bipolar disorder, Chronic pain disorder, Depression, HCV (hepatitis C virus) (2013), Herniated lumbar intervertebral disc, Liver disease, Lumbar radiculopathy, chronic, Neuropathic pain, Obesity, and Vision loss. Surgical History She has a past surgical history that includes Cholecystectomy; Hysterectomy; Tonsillectomy; Myringotomy w/ tubes (Bilateral); Dental surgery (Bilateral); Bunionectomy (Bilateral); Colonoscopy; Adenoidectomy; Spinal cord stimulator removal (10/14/2023); Spinal cord stimulator implant (09/23/2023); and Spinal cord stimulator trial w/ laminotomy (08/21/2023). Social History She reports that she has been smoking cigarettes. She started smoking about 33 years ago. She has a16.6 pack-year smoking history. She has never used smokeless tobacco. She reports that she does notcurrently use drugs. She reports that she does not drink alcohol. Family History Family History Problem Relation Name Age of Onset Lung disease Mother COPD Mother Lung disease Father Lung cancer Father Heart disease Father Allergies Penicillins, Diclofenac, Gabapentin, Lyrica [pregabalin], Tylenol [acetaminophen], and Nabumetone Review of Systems 13-point ROS done and negative except as above. Objective Physical Exam General: NAD, well groomed, well nourished Eyes: Non-icteric sclera, EOMI Ears, Nose, Mouth, and Throat: External ears and nose appear to be without deformity or rash. No lesions or masses noted. Hearing is grossly intact. Neck: Trachea midline Respiratory: Nonlabored breathing Cardiovascular: +2 peripheral edema Skin: No rashes or open lesions/ulcers identified on skin. MSK: 3/5 LLE dorsi/plantar flexion, 4/5 RLE dorsi/plantarflexion, Extremity: No sensation to pinprick or light touch on LLE, decreased pinprick on RLE. No overlying rash. Back: Palpation: Significant point tenderness to palpation over lumbar paraspinous muscles. Straight leg raise: positive at 10 degrees bilaterally Neurologic: Cranial nerves grossly intact. Strength: 3/5 LLE dorsi/plantar flexion, 4/5 RLE dorsi/plantarflexion, Sensation: No sensation to pinprick or light touch on LLE, decreased pinprick DTRs:normal and symmetric throughout Kebede: absent Clonus: absent Psychiatric: Alert, orientation to person, place, and time. Cooperative. Last Recorded Vitals Blood pressure 141/82, pulse 88, temperature 35.8 C (96.4 F), temperature source Temporal, resp. rate 19, height 1.6 m (5' 3 ), weight 113 kg (250 lb), SpO2 99%. Relevant Results Imaging personally reviewed and independently interpreted MR lumbar spine 05/15/2024 There are 5 lumbar type vertebral bodies. The last well-formed disc space is labeled L5-S1. Lumbar vertebral alignment is maintained without evidence of new spondylolisthesis. Vertebrae/Intervertebral Discs: The vertebral bodies demonstrate expected height. Postsurgical changes are noted from left L4 hemilaminectomy. The marrow signal is within normal limits. No abnormal enhancing lesions. Mild disc desiccation and loss of intervertebral disc height at L4-5 with degenerative endplate changes. Conus: The conus terminates at L2. T12-L1: Perineural cyst in the left neural foramen as described above. No significant spinal canal or neural foraminal stenosis. L1-2: Facet arthrosis without significant spinal canal or neural foraminal stenosis. L2-3: Facet arthrosis without significant spinal canal or neural foraminal stenosis. L3-4: Facet arthrosis without significant spinal canal or neural foraminal stenosis. L4-5: Asymmetric left disc bulge and facet arthrosis narrowing the sswv-mxigqyv-vunq-right lateral recesses and causing ebcu-kv-vjxihgxo bilateral neural foraminal stenosis. No significant spinal canal stenosis. L5-S1: Disc bulge, facet arthrosis, and ligamentum flavum hypertrophy causing moderate right and mild left neural foraminal stenosis. No significant spinal canal stenosis. Re-demonstration of a peripherally enhancing fluid collection of the level of L3-4 on the left measuring 4.4 x 2.4 x 2.5 (previously 5.4 x 3.7 x 3.4). Findings may reflect a postoperative seroma or abscess (series 19, image 34 and 17, image 17). There is surrounding soft tissue edema and susceptibility artifact. Assessment/Plan Assessment: 49-year-old female with significant history of prior discectomy in January 2024 as well as prior spinal cord stimulator with explantation due to infection. Patient is presenting for worsening low back and left lower extremity radicular pain. Given patient's symptoms, significant pain, and MRI findings of possible seroma or abscess her radiculopathy may be secondary to this fluid collection. Given this finding, there is no pain intervention that can be done acutely to significantly improve her pain. Multimodal pain management is warranted to manage her acute phase of pain and she can follow-up outpatient with pain management for evaluation of an epidural steroid injection. We discussed the typical natural history of acute low back pain in adults and the fact that 90% will improve with conservative measures in approximately 8 weeks; we also discussed the likelihood of having bulging disks on MRIs in adults over the age of 40 being very high, even though they may not be problematic. We discussed her imaging findings and conservative treatment options. We discussed the risk and benefits of epidural steroid injections including paralysis, epidural hematoma, infection, post dural puncture headache, transiently worsening pain, lack of efficacy; we discussed reasonable expectations for pain control. Recommendations: -Start cymbalta 20 mg at nighttime -Continue Robaxin 500 mg TID -Consider toradol -Consider medrol dosepak for nerve inflammation, rule out infection as this may worsen an epidural abscess -Lidocaine patch as needed -Recommend DC of IV narcotics and maintaining with oral opioids for breakthrough pain -Oxycodone 5 mg for moderate pain, 10 mg for severe pain -Agree with bowel regimen as constipation can worsen low back pain -Please schedule patient for pain management follow up as outpatient Tomer Zuniga MD PGY-2 Anesthesiology This note was generated with the aid of dictation software, there may be typographical errors despite my attempts at proofreading. Cosigned by Khanh Rainey MD at 05/16/2024 12:03 PM EST Associated attestation - Khanh Rainey MD - 05/16/2024 12:03 PM EST I discussed the patient and the plan with the resident. Agree with the assessment/plan with adjustments as listed below. Patient can follow-up with us in our outpatient clinic however would likely hold off on any acute interventional pain procedures given seroma from previous lumbar spine surgeries and infected spinal cord stimulator. Patient is allergic to multiple neuromodulators. Seems like patient was previously started on topiramate in the past, can consider topiramate at home dose or if weaned off of topiramate start 25mg nightly for 3 days then 25mg BID if tolerating or consider starting Cymbalta 30 mg at nighttime and discuss potential side effects with the patient and if she is having side effects can discontinue. Recommend medical management with Robaxin 500 mg 3 times daily, Toradol per primary team, lidocaine patch/ice/heat as needed, oxycodone 5 mg every 6 hours as needed for moderate pain and oxycodone 10 mg every 6 hours as needed for severe pain. Can consider Medrol Dosepak however would defer to primary team at this point. Khanh Rainey MD PGY5 Interventional Pain Fellow * Aaron Kilpatrick MD - 05/16/2024 3:20 AM ESTAssociated Order(s): Inpatient consult to Neurosurgery Inpatient consult to Neurosurgery Consult performed by: Aaron Kilpatrick MD Consult ordered by: Alen Ramires DO Date of Service: 05/16/2024 Attending Provider: Alen Ramires DO Reason for Consultation: Jerad Collins is being seen today for a consult requested by Alen Ramires DO for back pain. Subjective History of Present Illness: Karina is a 49 y.o. female with h/o chronic low back pain, neuropathic pain in bilateral lower extremities, chronic left lower extremity radiculopathy, HCV, GERD, depression, bipolar disease, 09/23/23 s/p percutaneous SCC placement, c/b wound dehiscence 10/14/23 s/p wound washout and SCC and generator removal, 02/06/24 s/p L4-5 MIS discectomy, 05/16 p/w worsening back pain. Patient reports worsening back pain that began 3 days ago and continues to intensify. She reports some control with her typicalregimen at home (oxy, robaxin, ibuprofen) but it has not touched this pain. She also has been having decreased sensation in LLE and incomplete bladder emptying. She reports electric shock down LLE that occurs with episodes of pain. She had a fall back in February after she slipped on wrapping paperand back pain has been worsening since. She has not had any spinal injections. She denies fevers, chills, additional falls. Review of Systems 10 point ROS is obtained and negative except the ones mentioned in the HPI Objective Vitals: Vitals: 05/15/24 2228 BP: 117/70 Pulse: 90 Resp: 16 Temp: SpO2: 96% Exam: Constitutional: Uncomfortable, shifting in chair Resp: breathing comfortably on room air Cardio: well perfused GI: nondistended MSK: full range of motion Neuro: A&Ox3 Cranial Nerves II-XII: PERRL, EOMI, Face symmetric, Facial SILT, Palate/Tongue midline and symmetric, shoulder shrugs symmetric, hearing intact to finger rubs bilaterally Motor: RUE D5 B5 T5 HG/IO 5 RLE HF5 KE5 DF/PF 5 LUE D5 B5 T5 HG/IO 5 LLE HF4 KE4 DF/PF 4 (some pain limitation) Sensation: diminished sensation in LLE (chronic) No Hoffmans or Clonus Psych: appropriate Skin: two lumbar incisions well healed, tender to palpation, no erythema, dehiscence or drainage Midline tenderness to palpation from mid thoracic spine to lumbar spine Medical History Past Medical History: Diagnosis Date [...] Percutaneous Thoracic Spinal Cord Stimulator Trial TONSILLECTOMY Medications Current Outpatient Medications Medication Instructions albuterol 90 mcg/actuation aerosol [facility] breath activated inhaler 2 puffs, inhalation, Every 4 hours PRN bisacodyl (DULCOLAX) 10 mg, rectal, Daily PRN cyclobenzaprine (FLEXERIL) 10 mg, oral, 3 times daily PRN hydrOXYzine HCL (ATARAX) 25 mg, oral, 3 times daily PRN ibuprofen 800 mg, oral, Every 8 hours PRN lidocaine (Lidoderm) 5 % patch 1 patch, transdermal, Daily PRN, Remove & discard patch within 12 hours or as directed by MD. lidocaine (Lidoderm) 5 % patch 1 patch, transdermal, Daily, Apply one patch topically once a day for 30 days methocarbamol (ROBAXIN) 500 mg, oral, 3 times daily, As needed for pain omeprazole (PRILOSEC) 40 mg, oral, Daily before breakfast, Do not crush or chew. oxyCODONE (ROXICODONE) 10 mg, oral, Every 6 hours PRN oxyCODONE (ROXICODONE) 5 mg, oral, Every 4 hours PRN polyethylene glycol (GLYCOLAX, MIRALAX) 17 g, oral, 3 times daily PRN Diagnostic Results: Lab Results Component Value Date WBC 9.8 05/15/2024 HGB 13.9 05/15/2024 HCT 42.4 05/15/2024 MCV 88 05/15/2024 PLT 325 05/15/2024 Lab Results Component Value Date CREATININE 0.72 05/15/2024 BUN 12 05/15/2024 NA 141 05/15/2024 K 3.6 05/15/2024 CL 102 05/15/2024 CO2 30 05/15/2024 Lab Results Component Value Date INR 1.0 04/30/2024 INR 0.9 12/23/2023 INR 0.9 12/15/2023 PROTIME 11.6 04/30/2024 PROTIME 11.0 12/23/2023 PROTIME 10.5 12/15/2023 === 04/23/24 === CT LUMBAR SPINE WO IV CONTRAST - Impression - No acute fracture or traumatic subluxation. Stable postsurgical changes from left L4 hemilaminectomy. Interval decrease in left paraspinal postsurgical collection likely due to postoperative seroma. Incidental stable left adrenal nodule measures 1.2 x 1.8 cm. Signed by Marsha Munguia MD === 05/15/24 === MR LUMBAR SPINE W AND WO CONTRAST ([facility]) This result has not been signed. Information might be incomplete. - Impression - 1. No significant interval change in mild degenerative changes of the thoracolumbar spine. 2. Slight interval increase in size of peripherally enhancing fluid collection within the posterior soft tissues which again may reflect an abscess or seroma in the appropriate clinical setting. 3. 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 I personally reviewed the images/study and I agree with Germaine Solitario DO's (vice president of news) findings as stated. This study was interpreted at [facility], [place], [place]. MACRO: None Dictation workstation: [id number] Assessment/Plan Assessment: Karina is a 49 y.o. female with h/o chronic low back pain, neuropathic pain in bilateral lower extremities, chronic left lower extremity radiculopathy, HCV, GERD, depression, bipolar disease, 09/23/23 s/p percutaneous SCC placement, c/b wound dehiscence 10/14/23 s/p wound washout and SCC and generator removal, 02/06/24 s/p L4-5 MIS discectomy, 05/16 p/w worsening back pain, MRI T/L spine w/wo non-compressive enhancing superficial fluid collection near L4 decreased compared to 03/2024 Patient with spinal tenderness and pain limited LLE weakness. MRI lumbar spine with decrease in size of known seroma and downtrending infectious markers w/o new/worsening stenosis Plan: No acute neurosurgical intervention Recommend pain management Do not recommend fluid tap given improving ESR, CRP and WBC and overall decrease in size Maintain outpatient follow up on 06/03/24 Aaron Kilpatrick MD Plan not finalized until note signed by attending Cosigned by Harman Estrella MD at 05/16/2024 7:47 AM EST Associated attestation - Harman Estrella MD - 05/16/2024 7:47 AM EST I reviewed the resident/fellow's documentation and discussed the patient with the resident/fellow. I agree with the resident/fellow's medical decision making as documented in the note. 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 She has history of prior SCS placement c/b infection and subsequent removal (Dr. Elke Adams). She has also seen Dr. Melgoza in the past, but not since her MIS lami/discectomy. She had about 6 weeks of relatively good pain relief after her surgery, but her pain got worse after this. Her pain is mostly in her low back and that is what bothers her the most. She also gets pain down her left leg in nondermatomal distribution ( whole leg ). She occasionally gets a right anterior thigh pain as well. She has ended up in the emergency department for severe pain multiple times. She is taking flexeril, oxycodone, NSAIDs. I personally reviewed MRI L spine done on 04/24/2024 and compared to pre-op MRI (01/20/2024). There is a seroma - inconsequential/expected after this surgery given her morbid obesity. This will resolve/scar over a long period of time. And, yes, there is some residual disc bulging/scar tissue, but looks overall more open compared to pre-op MRI. I do not have a lot else to offer her. I would not recommend any sort of fusion/revision discectomy at this time. Her distribution of her pain in non-dermatomal. I think she may benefit from GABRIEL/RFA from pain management and consider replacement of her SCS. No additional recs. Defer to pain management and follow up with pain management. Neurosurgery will sign off at this time. Patient and plan discussed with Dr. Woodard. [facility] Work Phone: [phone]) [phone] History and physical note* Clinton De La Cruz MD - 05/16/2024 5:40 AM EST History and Physical Subjective Jerad Collins is a 49 y.o. female who presented to ED for uncontrolled back pain, admitted to Hospitalist Team C on 05/15/2024 for Chronic midline low back pain without sciatica. HPI: Jerad Tracy is a is a 49 y.o. female with PMHx of chronic low back pain, neuropathic pain in bilateral lower extremities, chronic left lower extremity radiculopathy, HCV, GERD, depression, bipolar disease, 09/23/23 s/p percutaneous SCC placement, c/b wound dehiscence 10/14/23 s/p wound washout and SCC and generator removal, 02/06/24 s/p L4-5 MIS discectomy, presenting to [facility] ED due to worsening lower back pain no longer controlled by home pain regimen. Of note, patient recently discharged 05/02/24, at which time patient states her pain was controlled with PO Ibuprofen 800 mg, Toradol, and Flexeril. For the past few days her pain has escalated and has had sharp shooting pain from her lower back down both legs.Patient states her legs feel numb and has been experiencing urinary changes. Patient states that during sharp burst of pain, she will have urinary leakage.She is otherwise able to control her urine output, but states she has a sensation of incomplete emptying. Pt denies chest pain,sob, headache, vision changes, nausea, vomiting, abdominal pain, constipation or diarrhea. MRI T & L Spine completed showing decreased fluid collection at L4 and no new fluid collectionsor stenosis identified. ESR and CRP also down trending. Neurosurgery was consulted in the ED, recommended pain management and no acute surgical intervention. Advised follow up scheduled 06/03/24. Patient Active Problem List Diagnosis Current smoker Continuous opioid dependence (Multi) Chronic back pain greater than 3 months duration Neuropathic pain Anxiety Depression Morbid obesity (Multi) Chronic low back pain Postoperative infection, unspecified type, initial encounter Wound dehiscence Acute bilateral low back pain without sciatica Hepatic fibrosis, advanced fibrosis 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 Lumbar radiculopathy, acute Chronic low back pain without sciatica, unspecified back pain laterality Lumbar disc herniation with radiculopathy Back pain with radiation Chronic pain syndrome Chronic low back pain with left-sided sciatica, unspecified back pain laterality Chronic midline low back pain without sciatica Past Medical History: Diagnosis Date Anxiety Arthritis [...] Percutaneous Thoracic Spinal Cord Stimulator Trial TONSILLECTOMY Current Outpatient Medications Medication Instructions albuterol 90 mcg/actuation aerosol [facility] breath activated inhaler 2 puffs, inhalation, Every 4 hours PRN bisacodyl (DULCOLAX) 10 mg, rectal, Daily PRN cyclobenzaprine (FLEXERIL) 10 mg, oral, 3 times daily PRN hydrOXYzine HCL (ATARAX) 25 mg, oral, 3 times daily PRN ibuprofen 800 mg, oral, Every 8 hours PRN lidocaine (Lidoderm) 5 % patch 1 patch, transdermal, Daily PRN, Remove & discard patch within 12 hours or as directed by MD. lidocaine (Lidoderm) 5 % patch 1 patch, transdermal, Daily, Apply one patch topically once a day for 30 days methocarbamol (ROBAXIN) 500 mg, oral, 3 times daily, As needed for pain omeprazole (PRILOSEC) 40 mg, oral, Daily before breakfast, Do not crush or chew. oxyCODONE (ROXICODONE) 10 mg, oral, Every 6 hours PRN oxyCODONE (ROXICODONE) 5 mg, oral, Every 4 hours PRN polyethylene glycol (GLYCOLAX, MIRALAX) 17 g, oral, 3 times daily PRN Allergies Allergen Reactions Penicillins Hives Reported hives as a child. Prescribed cephalexin September 2023 and reported itching only (no rash/hives). Also reports having taken amoxicillin in the past and tolerated. Diclofenac Hives Gabapentin Headache Lyrica [Pregabalin] Swelling BLE Tylenol [Acetaminophen] Unknown History of stage III liver fibrosis Nabumetone Nausea/vomiting and Rash Social History Tobacco Use Smoking status: Every Day Current packs/day: 0.50 Average packs/day: 0.5 packs/day for 33.1 years (16.6 ttl pk-yrs) Types: Cigarettes Start date: 1991 Smokeless tobacco: Never Vaping Use Vaping status: Never Used Substance Use Topics Alcohol use: Never Drug use: Not Currently Comment: last use 2016- heroin Family History Problem Relation Name Age of Onset Lung disease Mother COPD Mother Lung disease Father Lung cancer Father Heart disease Father Scheduled Medications: acetaminophen, 975 mg, oral, Once enoxaparin, 40 mg, subcutaneous, q12h BLAISE ibuprofen, 800 mg, oral, q8h lidocaine, 1 patch, transdermal, Daily pantoprazole, 40 mg, oral, Daily before breakfast polyethylene glycol, 17 g, oral, Daily Continuous Medications: PRN Medications: PRN medications: albuterol, cyclobenzaprine, HYDROmorphone, hydrOXYzine HCL, ketorolac, oxyCODONE, oxyCODONE Objective Vitals: Most Recent: BP 114/79 (BP Location: Right arm, Patient Position: Sitting) Pulse 100 Temp 36.6 C (97.9 F) (Tympanic) Resp 18 Ht 1.6 m (5' 3 ) Wt 113 kg (250 lb) SpO2 97% BMI 44.29 kg/m 24hr Min/Max: Temp Min: 36.6 C (97.9 F) Max: 36.6 C (97.9 F) Pulse Min: 90 Max: 103 BP Min: 114/79 Max: 157/87 Resp Min: 16 Max: 18 SpO2 Min: 96 % Max: 100 % No intake or output data in the 24 hours ending 05/16/24 0540 Physical exam: Physical Exam Constitutional: General: She is in acute distress. Appearance: She is not ill-appearing. Eyes: Extraocular Movements: Extraocular movements intact. Cardiovascular: Rate and Rhythm: Normal rate. Heart sounds: No murmur heard. Pulmonary: Effort: Pulmonary effort is normal. No respiratory distress. Breath sounds: No rhonchi. Abdominal: Tenderness: There is no abdominal tenderness. There is no guarding. Musculoskeletal: General: Tenderness (lumbar spine tenderness) present. Skin: Findings: No erythema. Neurological: Mental Status: She is oriented to person, place, and time. Sensory: Sensory deficit (decreased sensation of LLE in comparison to RLE) present. Motor: Weakness (LLE weakness in compariosn to RLE) present. Psychiatric: Mood and Affect: Mood normal. Behavior: Behavior normal. Lab/Radiology/Diagnostic Review: Results for orders placed or performed during the hospital encounter of 05/15/24 (from the past 24 hours) CBC and Auto Differential Result Value Ref Range WBC 9.8 4.4 - 11.3 x10*3/uL nRBC 0.0 0.0 - 0.0 /100 WBCs RBC 4.81 4.00 - 5.20 x10*6/uL Hemoglobin 13.9 12.0 - 16.0 g/dL Hematocrit 42.4 36.0 - 46.0 % MCV 88 80 - 100 fL MCH 28.9 26.0 - 34.0 pg MCHC 32.8 32.0 - 36.0 g/dL RDW 13.4 11.5 - 14.5 % Platelets 325 150 - 450 x10*3/uL Neutrophils % 67.7 40.0 - 80.0 % Immature Granulocytes %, Automated 0.3 0.0 - 0.9 % Lymphocytes % 24.2 13.0 - 44.0 % Monocytes % 6.2 2.0 - 10.0 % Eosinophils % 1.5 0.0 - 6.0 % Basophils % 0.1 0.0 - 2.0 % Neutrophils Absolute 6.63 1.20 - 7.70 x10*3/uL Immature Granulocytes Absolute, Automated 0.03 0.00 - 0.70 x10*3/uL Lymphocytes Absolute 2.37 1.20 - 4.80 x10*3/uL Monocytes Absolute 0.61 0.10 - 1.00 x10*3/uL Eosinophils Absolute 0.15 0.00 - 0.70 x10*3/uL Basophils Absolute 0.01 0.00 - 0.10 x10*3/uL Comprehensive metabolic panel Result Value Ref Range Glucose 103 (H) 74 - 99 mg/dL Sodium 141 136 - 145 mmol/L Potassium 3.6 3.5 - 5.3 mmol/L Chloride 102 98 - 107 mmol/L Bicarbonate 30 21 - 32 mmol/L Anion Gap 13 10 - 20 mmol/L Urea Nitrogen 12 6 - 23 mg/dL Creatinine 0.72 0.50 - 1.05 mg/dL eGFR >90 >60 mL/min/1.73m*2 Calcium 9.2 8.6 - 10.6 mg/dL Albumin 4.5 3.4 - 5.0 g/dL Alkaline Phosphatase 104 33 - 110 U/L Total Protein 7.9 6.4 - 8.2 g/dL AST 17 9 - 39 U/L Bilirubin, Total 0.3 0.0 - 1.2 mg/dL ALT 20 7 - 45 U/L Sedimentation rate, automated Result Value Ref Range Sedimentation Rate 47 (H) 0 - 20 mm/h C-reactive protein Result Value Ref Range C-Reactive Protein 1.18 (H) <1.00 mg/dL Assessment Jerad Tracy is a 49 y.o. female with PMHx of chronic low back pain, neuropathic pain in bilateral lower extremities, chronic left lower extremity radiculopathy, HCV, GERD, depression, bipolar disease, 09/23/23 s/p percutaneous SCC placement, c/b wound dehiscence 10/14/23 s/p wound washout and SCC and generator removal, 02/06/24 s/p L4-5 MIS discectomy, presenting to [facility] ED due to worsening lowerback pain no longer controlled by home pain regimen, admitted for uncontrolled pain. MRI T & L Spine completed showing decreased fluid collection at L4 and no new fluid collections or stenosis identified. ESR and CRP also down trending. Neurosurgery was consulted in the ED, recommended pain management and no acute surgical intervention. Advised follow up scheduled 06/03/24. Continued home painregimen with PRN oxycodone and Dilaudid for breakthrough. Determined to be hemodynamically stable and appropriate for regular nursing floor. To be admitted to Hospitalist Team C for further management. Detailed plan as follows: Plan Assessment & Plan Chronic midline low back pain without sciatica #Acute on Chronic Lumbar Pain c/b neuropathy ::09/23/23 s/p percutaneous SCC placement, c/b wound dehiscence 10/14/23 s/p wound washout and SCC andgenerator removal, 02/06/24 s/p L4-5 MIS discectomy, :: Recent discharge on 05/02/24 where back was controlled on PO regimen - s/p multiple doses of Dilaudid in ED - MRI T & L Spine completed showing decreased fluid collection at L4 and no new fluid collections or stenosis identified. - ESR 47 and CRP 1.18, both down trending. - Neurosurgery was consulted in the ED, recommended pain management and no acute surgical intervention. Advised follow up scheduled 06/03/24. - Continued home pain regimen Ibuprofen 800 mg, Tordaol and Flexeril TID - Ordered PRN Oxycodone 5 mg For moderate, Oxycodone 10 mg for Severe and Dilaudid for breakthrough. - De-escalate opioids as appropriate - PT/OT consulted - Pt previously declined SNF, open to facility if recommended #Urinary Retention - Post void residual bladder scan showed ~200 ml - continue to monitor #GERD - Continued home Protonix 40 mg #Anxiety - Continued home Atarax 25 mg TID PRN Fluids: PRN O2: PRN DVT ppx: Lovenox GI ppx: Protonix Abx: n/a Diet: Reg Code Status: Full Code NOK: Avery Gutiérrez (partner) [phone] PCP: No Assigned PCP Generic Provider, Patient discussed with attending physician Dr. Vasile Trinidad Plan preliminary until cosigned by attending physician. Clinton De La Cruz MD Family Medicine PGY-2 Cosigned by Lokesh Trinidad MD at 05/16/2024 6:51 AM EST Associated attestation - Lokesh Johnson MD - 05/16/2024 6:51 AM EST I saw and evaluated the patient. I personally obtained the medrano and critical portions of the historyand physical exam or was physically present for medrano and critical portions performed by the resident. I reviewed the resident's documentation and discussed the patient with the resident. I agree with the resident s medical decision making as documented in the note. [facility] Work Phone: [phone] 767-648002-22-2025 History and physical note* Clinton De La Cruz MD - 05/16/2024 5:40 AM EST History and Physical Subjective Jerad Collins is a 49 y.o. female who presented to ED for uncontrolled back pain, admitted to Hospitalist Team C on 05/15/2024 for Chronic midline low back pain without sciatica. HPI: Jerad Tracy is a is a 49 y.o. female with PMHx of chronic low back pain, neuropathic pain in bilateral lower extremities, chronic left lower extremity radiculopathy, HCV, GERD, depression, bipolar disease, 09/23/23 s/p percutaneous SCC placement, c/b wound dehiscence 10/14/23 s/p wound washout and SCC and generator removal, 02/06/24 s/p L4-5 MIS discectomy, presenting to [facility] ED due to worsening lower back pain no longer controlled by home pain regimen. Of note, patient recently discharged 05/02/24, at which time patient states her pain was controlled with PO Ibuprofen 800 mg, Toradol, and Flexeril. For the past few days her pain has escalated and has had sharp shooting pain from her lower back down both legs.Patient states her legs feel numb and has been experiencing urinary changes. Patient states that during sharp burst of pain, she will have urinary leakage.She is otherwise able to control her urine output, but states she has a sensation of incomplete emptying. Pt denies chest pain,sob, headache, vision changes, nausea, vomiting, abdominal pain, constipation or diarrhea. MRI T & L Spine completed showing decreased fluid collection at L4 and no new fluid collectionsor stenosis identified. ESR and CRP also down trending. Neurosurgery was consulted in the ED, recommended pain management and no acute surgical intervention. Advised follow up scheduled 06/03/24. Patient Active Problem List Diagnosis Current smoker Continuous opioid dependence (Multi) Chronic back pain greater than 3 months duration Neuropathic pain Anxiety Depression Morbid obesity (Multi) Chronic low back pain Postoperative infection, unspecified type, initial encounter Wound dehiscence Acute bilateral low back pain without sciatica Hepatic fibrosis, advanced fibrosis 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 Lumbar radiculopathy, acute Chronic low back pain without sciatica, unspecified back pain laterality Lumbar disc herniation with radiculopathy Back pain with radiation Chronic pain syndrome Chronic low back pain with left-sided sciatica, unspecified back pain laterality Chronic midline low back pain without sciatica Past Medical History: Diagnosis Date Anxiety Arthritis [...] Percutaneous Thoracic Spinal Cord Stimulator Trial TONSILLECTOMY Current Outpatient Medications Medication Instructions albuterol 90 mcg/actuation aerosol [facility] breath activated inhaler 2 puffs, inhalation, Every 4 hours PRN bisacodyl (DULCOLAX) 10 mg, rectal, Daily PRN cyclobenzaprine (FLEXERIL) 10 mg, oral, 3 times daily PRN hydrOXYzine HCL (ATARAX) 25 mg, oral, 3 times daily PRN ibuprofen 800 mg, oral, Every 8 hours PRN lidocaine (Lidoderm) 5 % patch 1 patch, transdermal, Daily PRN, Remove & discard patch within 12 hours or as directed by MD. lidocaine (Lidoderm) 5 % patch 1 patch, transdermal, Daily, Apply one patch topically once a day for 30 days methocarbamol (ROBAXIN) 500 mg, oral, 3 times daily, As needed for pain omeprazole (PRILOSEC) 40 mg, oral, Daily before breakfast, Do not crush or chew. oxyCODONE (ROXICODONE) 10 mg, oral, Every 6 hours PRN oxyCODONE (ROXICODONE) 5 mg, oral, Every 4 hours PRN polyethylene glycol (GLYCOLAX, MIRALAX) 17 g, oral, 3 times daily PRN Allergies Allergen Reactions Penicillins Hives Reported hives as a child. Prescribed cephalexin September 2023 and reported itching only (no rash/hives). Also reports having taken amoxicillin in the past and tolerated. Diclofenac Hives Gabapentin Headache Lyrica [Pregabalin] Swelling BLE Tylenol [Acetaminophen] Unknown History of stage III liver fibrosis Nabumetone Nausea/vomiting and Rash Social History Tobacco Use Smoking status: Every Day Current packs/day: 0.50 Average packs/day: 0.5 packs/day for 33.1 years (16.6 ttl pk-yrs) Types: Cigarettes Start date: 1991 Smokeless tobacco: Never Vaping Use Vaping status: Never Used Substance Use Topics Alcohol use: Never Drug use: Not Currently Comment: last use 2016- heroin Family History Problem Relation Name Age of Onset Lung disease Mother COPD Mother Lung disease Father Lung cancer Father Heart disease Father Scheduled Medications: acetaminophen, 975 mg, oral, Once enoxaparin, 40 mg, subcutaneous, q12h BLAISE ibuprofen, 800 mg, oral, q8h lidocaine, 1 patch, transdermal, Daily pantoprazole, 40 mg, oral, Daily before breakfast polyethylene glycol, 17 g, oral, Daily Continuous Medications: PRN Medications: PRN medications: albuterol, cyclobenzaprine, HYDROmorphone, hydrOXYzine HCL, ketorolac, oxyCODONE, oxyCODONE Objective Vitals: Most Recent: BP 114/79 (BP Location: Right arm, Patient Position: Sitting) Pulse 100 Temp 36.6 C (97.9 F) (Tympanic) Resp 18 Ht 1.6 m (5' 3 ) Wt 113 kg (250 lb) SpO2 97% BMI 44.29 kg/m 24hr Min/Max: Temp Min: 36.6 C (97.9 F) Max: 36.6 C (97.9 F) Pulse Min: 90 Max: 103 BP Min: 114/79 Max: 157/87 Resp Min: 16 Max: 18 SpO2 Min: 96 % Max: 100 % No intake or output data in the 24 hours ending 05/16/24 0540 Physical exam: Physical Exam Constitutional: General: She is in acute distress. Appearance: She is not ill-appearing. Eyes: Extraocular Movements: Extraocular movements intact. Cardiovascular: Rate and Rhythm: Normal rate. Heart sounds: No murmur heard. Pulmonary: Effort: Pulmonary effort is normal. No respiratory distress. Breath sounds: No rhonchi. Abdominal: Tenderness: There is no abdominal tenderness. There is no guarding. Musculoskeletal: General: Tenderness (lumbar spine tenderness) present. Skin: Findings: No erythema. Neurological: Mental Status: She is oriented to person, place, and time. Sensory: Sensory deficit (decreased sensation of LLE in comparison to RLE) present. Motor: Weakness (LLE weakness in compariosn to RLE) present. Psychiatric: Mood and Affect: Mood normal. Behavior: Behavior normal. Lab/Radiology/Diagnostic Review: Results for orders placed or performed during the hospital encounter of 05/15/24 (from the past 24 hours) CBC and Auto Differential Result Value Ref Range WBC 9.8 4.4 - 11.3 x10*3/uL nRBC 0.0 0.0 - 0.0 /100 WBCs RBC 4.81 4.00 - 5.20 x10*6/uL Hemoglobin 13.9 12.0 - 16.0 g/dL Hematocrit 42.4 36.0 - 46.0 % MCV 88 80 - 100 fL MCH 28.9 26.0 - 34.0 pg MCHC 32.8 32.0 - 36.0 g/dL RDW 13.4 11.5 - 14.5 % Platelets 325 150 - 450 x10*3/uL Neutrophils % 67.7 40.0 - 80.0 % Immature Granulocytes %, Automated 0.3 0.0 - 0.9 % Lymphocytes % 24.2 13.0 - 44.0 % Monocytes % 6.2 2.0 - 10.0 % Eosinophils % 1.5 0.0 - 6.0 % Basophils % 0.1 0.0 - 2.0 % Neutrophils Absolute 6.63 1.20 - 7.70 x10*3/uL Immature Granulocytes Absolute, Automated 0.03 0.00 - 0.70 x10*3/uL Lymphocytes Absolute 2.37 1.20 - 4.80 x10*3/uL Monocytes Absolute 0.61 0.10 - 1.00 x10*3/uL Eosinophils Absolute 0.15 0.00 - 0.70 x10*3/uL Basophils Absolute 0.01 0.00 - 0.10 x10*3/uL Comprehensive metabolic panel Result Value Ref Range Glucose 103 (H) 74 - 99 mg/dL Sodium 141 136 - 145 mmol/L Potassium 3.6 3.5 - 5.3 mmol/L Chloride 102 98 - 107 mmol/L Bicarbonate 30 21 - 32 mmol/L Anion Gap 13 10 - 20 mmol/L Urea Nitrogen 12 6 - 23 mg/dL Creatinine 0.72 0.50 - 1.05 mg/dL eGFR >90 >60 mL/min/1.73m*2 Calcium 9.2 8.6 - 10.6 mg/dL Albumin 4.5 3.4 - 5.0 g/dL Alkaline Phosphatase 104 33 - 110 U/L Total Protein 7.9 6.4 - 8.2 g/dL AST 17 9 - 39 U/L Bilirubin, Total 0.3 0.0 - 1.2 mg/dL ALT 20 7 - 45 U/L Sedimentation rate, automated Result Value Ref Range Sedimentation Rate 47 (H) 0 - 20 mm/h C-reactive protein Result Value Ref Range C-Reactive Protein 1.18 (H) <1.00 mg/dL Assessment Jerad Tracy is a 49 y.o. female with PMHx of chronic low back pain, neuropathic pain in bilateral lower extremities, chronic left lower extremity radiculopathy, HCV, GERD, depression, bipolar disease, 09/23/23 s/p percutaneous SCC placement, c/b wound dehiscence 10/14/23 s/p wound washout and SCC and generator removal, 02/06/24 s/p L4-5 MIS discectomy, presenting to [facility] ED due to worsening lowerback pain no longer controlled by home pain regimen, admitted for uncontrolled pain. MRI T & L Spine completed showing decreased fluid collection at L4 and no new fluid collections or stenosis identified. ESR and CRP also down trending. Neurosurgery was consulted in the ED, recommended pain management and no acute surgical intervention. Advised follow up scheduled 06/03/24. Continued home painregimen with PRN oxycodone and Dilaudid for breakthrough. Determined to be hemodynamically stable and appropriate for regular nursing floor. To be admitted to Hospitalist Team C for further management. Detailed plan as follows: Plan Assessment & Plan Chronic midline low back pain without sciatica #Acute on Chronic Lumbar Pain c/b neuropathy ::09/23/23 s/p percutaneous SCC placement, c/b wound dehiscence 10/14/23 s/p wound washout and SCC andgenerator removal, 02/06/24 s/p L4-5 MIS discectomy, :: Recent discharge on 05/02/24 where back was controlled on PO regimen - s/p multiple doses of Dilaudid in ED - MRI T & L Spine completed showing decreased fluid collection at L4 and no new fluid collections or stenosis identified. - ESR 47 and CRP 1.18, both down trending. - Neurosurgery was consulted in the ED, recommended pain management and no acute surgical intervention. Advised follow up scheduled 06/03/24. - Continued home pain regimen Ibuprofen 800 mg, Tordaol and Flexeril TID - Ordered PRN Oxycodone 5 mg For moderate, Oxycodone 10 mg for Severe and Dilaudid for breakthrough. - De-escalate opioids as appropriate - PT/OT consulted - Pt previously declined SNF, open to facility if recommended #Urinary Retention - Post void residual bladder scan showed ~200 ml - continue to monitor #GERD - Continued home Protonix 40 mg #Anxiety - Continued home Atarax 25 mg TID PRN Fluids: PRN O2: PRN DVT ppx: Lovenox GI ppx: Protonix Abx: n/a Diet: Reg Code Status: Full Code NOK: Avery Gutiérrez (partner) [phone] PCP: No Assigned PCP Generic Provider, Patient discussed with attending physician Dr. Vasile Trinidad Plan preliminary until cosigned by attending physician. Clinton De La Cruz MD Family Medicine PGY-2 Cosigned by Lokesh Trinidad MD at 05/16/2024 6:51 AM EST Associated attestation - Lokesh Johnson MD - 05/16/2024 6:51 AM EST I saw and evaluated the patient. I personally obtained the medrano and critical portions of the historyand physical exam or was physically present for medrano and critical portions performed by the resident. I reviewed the resident's documentation and discussed the patient with the resident. I agree with the resident s medical decision making as documented in the note. [facility] Work Phone: [phone] Consult note* Aaron Kilpatrick MD - 05/16/2024 3:20 AM ESTAssociated Order(s): Inpatient consult to Neurosurgery Inpatient consult to Neurosurgery Consult performed by: Aaron Kilpatrick MD Consult ordered by: Alen Ramires DO Date of Service: 05/16/2024 Attending Provider: Alen Ramires DO Reason for Consultation: Jerad Collins is being seen today for a consult requested by Alen Ramires DO for back pain. Subjective History of Present Illness: Karina is a 49 y.o. female with h/o chronic low back pain, neuropathic pain in bilateral lower extremities, chronic left lower extremity radiculopathy, HCV, GERD, depression, bipolar disease, 09/23/23 s/p percutaneous SCC placement, c/b wound dehiscence 10/14/23 s/p wound washout and SCC and generator removal, 02/06/24 s/p L4-5 MIS discectomy, 05/16 p/w worsening back pain. Patient reports worsening back pain that began 3 days ago and continues to intensify. She reports some control with her typicalregimen at home (oxy, robaxin, ibuprofen) but it has not touched this pain. She also has been having decreased sensation in LLE and incomplete bladder emptying. She reports electric shock down LLE that occurs with episodes of pain. She had a fall back in February after she slipped on wrapping paperand back pain has been worsening since. She has not had any spinal injections. She denies fevers, chills, additional falls. Review of Systems 10 point ROS is obtained and negative except the ones mentioned in the HPI Objective Vitals: Vitals: 05/15/24 2228 BP: 117/70 Pulse: 90 Resp: 16 Temp: SpO2: 96% Exam: Constitutional: Uncomfortable, shifting in chair Resp: breathing comfortably on room air Cardio: well perfused GI: nondistended MSK: full range of motion Neuro: A&Ox3 Cranial Nerves II-XII: PERRL, EOMI, Face symmetric, Facial SILT, Palate/Tongue midline and symmetric, shoulder shrugs symmetric, hearing intact to finger rubs bilaterally Motor: RUE D5 B5 T5 HG/IO 5 RLE HF5 KE5 DF/PF 5 LUE D5 B5 T5 HG/IO 5 LLE HF4 KE4 DF/PF 4 (some pain limitation) Sensation: diminished sensation in LLE (chronic) No Hoffmans or Clonus Psych: appropriate Skin: two lumbar incisions well healed, tender to palpation, no erythema, dehiscence or drainage Midline tenderness to palpation from mid thoracic spine to lumbar spine Medical History Past Medical History: Diagnosis Date [...] Percutaneous Thoracic Spinal Cord Stimulator Trial TONSILLECTOMY Medications Current Outpatient Medications Medication Instructions albuterol 90 mcg/actuation aerosol pow breath activated inhaler 2 puffs, inhalation, Every 4 hours PRN bisacodyl (DULCOLAX) 10 mg, rectal, Daily PRN cyclobenzaprine (FLEXERIL) 10 mg, oral, 3 times daily PRN hydrOXYzine HCL (ATARAX) 25 mg, oral, 3 times daily PRN ibuprofen 800 mg, oral, Every 8 hours PRN lidocaine (Lidoderm) 5 % patch 1 patch, transdermal, Daily PRN, Remove & discard patch within 12 hours or as directed by MD. lidocaine (Lidoderm) 5 % patch 1 patch, transdermal, Daily, Apply one patch topically once a day for 30 days methocarbamol (ROBAXIN) 500 mg, oral, 3 times daily, As needed for pain omeprazole (PRILOSEC) 40 mg, oral, Daily before breakfast, Do not crush or chew. oxyCODONE (ROXICODONE) 10 mg, oral, Every 6 hours PRN oxyCODONE (ROXICODONE) 5 mg, oral, Every 4 hours PRN polyethylene glycol (GLYCOLAX, MIRALAX) 17 g, oral, 3 times daily PRN Diagnostic Results: Lab Results Component Value Date WBC 9.8 05/15/2024 HGB 13.9 05/15/2024 HCT 42.4 05/15/2024 MCV 88 05/15/2024 PLT 325 05/15/2024 Lab Results Component Value Date CREATININE 0.72 05/15/2024 BUN 12 05/15/2024 NA 141 05/15/2024 K 3.6 05/15/2024 CL 102 05/15/2024 CO2 30 05/15/2024 Lab Results Component Value Date INR 1.0 04/30/2024 INR 0.9 12/23/2023 INR 0.9 12/15/2023 PROTIME 11.6 04/30/2024 PROTIME 11.0 12/23/2023 PROTIME 10.5 12/15/2023 === 04/23/24 === CT LUMBAR SPINE WO IV CONTRAST - Impression - No acute fracture or traumatic subluxation. Stable postsurgical changes from left L4 hemilaminectomy. Interval decrease in left paraspinal postsurgical collection likely due to postoperative seroma. Incidental stable left adrenal nodule measures 1.2 x 1.8 cm. Signed by Marsha Munguia MD === 05/15/24 === MR LUMBAR SPINE W AND WO CONTRAST ([place] [place]) This result has not been signed. Information might be incomplete. - Impression - 1. No significant interval change in mild degenerative changes of the thoracolumbar spine. 2. Slight interval increase in size of peripherally enhancing fluid collection within the posterior soft tissues which again may reflect an abscess or seroma in the appropriate clinical setting. 3. 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 I personally reviewed the images/study and I agree with Germaine Solitario DO's (vice president of news) findings as stated. This study was interpreted at [facility], [place], [place]. MACRO: None Dictation workstation: [id number] Assessment/Plan Assessment: Karina is a 49 y.o. female with h/o chronic low back pain, neuropathic pain in bilateral lower extremities, chronic left lower extremity radiculopathy, HCV, GERD, depression, bipolar disease, 09/23/23 s/p percutaneous SCC placement, c/b wound dehiscence 10/14/23 s/p wound washout and SCC and generator removal, 02/06/24 s/p L4-5 MIS discectomy, 05/16 p/w worsening back pain, MRI T/L spine w/wo non-compressive enhancing superficial fluid collection near L4 decreased compared to 03/2024 Patient with spinal tenderness and pain limited LLE weakness. MRI lumbar spine with decrease in size of known seroma and downtrending infectious markers w/o new/worsening stenosis Plan: No acute neurosurgical intervention Recommend pain management Do not recommend fluid tap given improving ESR, CRP and WBC and overall decrease in size Maintain outpatient follow up on 06/03/24 Aaron Kilpatrick MD Plan not finalized until note signed by attending Cosigned by Harman Estrella MD at 05/16/2024 7:47 AM EST Associated attestation - Harman Estrella MD - 05/16/2024 7:47 AM EST I reviewed the resident/fellow's documentation and discussed the patient with the resident/fellow. I agree with the resident/fellow's medical decision making as documented in the note. [facility] Work Phone: 1(565) 390-247202-21-2025 Physician Emergency department Note* Angi Flemingdarcie - 05/15/2024 8:19 PM EST History of Present Illness History provided by: Patient Limitations to History: None External Records Reviewed with Brief Summary: ED Note 05/15 and Neurosurgery 05/05 Notes, acute on chronic back s/p left L4-5 MIS hemilaminotomy, partial medial facetectomy, and microdiscectomy and seroma HPI: Jerad Tracy is a 49 y.o. 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 Patient has worsening sharp lower back pain shooting down her legs for the past few days as well asnew urinary symptoms. She states that the pain is unbearable doing anything , including sitting down, walking. She took Toradol and muscle relaxants but this has not helped. She states that she had 3-4 instances of urinary leakage today; this has happened before but not as consistently as today. Pain much worse than yesterday when she presented to ED with similar symptoms, called Neurosurgeon team today who recommended she come to ED. Patient present with isaac today. Physical Exam Triage vitals: T 36.6 C (97.9 F) HR (!) 103 BP 157/87 RR 18 O2 100 % None (Room air) General: Awake, alert, in no acute distress Eyes: Gaze conjugate. No scleral icterus or injection HENT: Normo-cephalic, atraumatic. No stridor CV: Regular rate, regular rhythm. Radial pulses 2+ bilaterally Resp: Breathing non-labored, speaking in full sentences. Clear to auscultation bilaterally GI: Soft, non-distended, non-tender. No rebound or guarding. MSK/Extremities: No gross bony deformities. Moving all extremities. Tenderness to palpation T and Lparaspinal area. Skin: Warm. Appropriate color Neuro: Alert. Oriented. Face symmetric. Speech is fluent. Gross strength and sensation intact in b/l UE and LEs Psych: Appropriate mood and affect Results for orders placed or performed during the hospital encounter of 05/14/24 (from the past 96 hours) CBC and Auto Differential Result Value Ref Range WBC 9.1 4.4 - 11.3 x10*3/uL nRBC 0.0 0.0 - 0.0 /100 WBCs RBC 4.71 4.00 - 5.20 x10*6/uL Hemoglobin 13.9 12.0 - 16.0 g/dL Hematocrit 42.7 36.0 - 46.0 % MCV 91 80 - 100 fL MCH 29.5 26.0 - 34.0 pg MCHC 32.6 32.0 - 36.0 g/dL RDW 13.4 11.5 - 14.5 % Platelets 345 150 - 450 x10*3/uL Neutrophils % 66.3 40.0 - 80.0 % Immature Granulocytes %, Automated 0.3 0.0 - 0.9 % Lymphocytes % 24.9 13.0 - 44.0 % Monocytes % 7.1 2.0 - 10.0 % Eosinophils % 1.2 0.0 - 6.0 % Basophils % 0.2 0.0 - 2.0 % Neutrophils Absolute 6.01 1.20 - 7.70 x10*3/uL Immature Granulocytes Absolute, Automated 0.03 0.00 - 0.70 x10*3/uL Lymphocytes Absolute 2.26 1.20 - 4.80 x10*3/uL Monocytes Absolute 0.64 0.10 - 1.00 x10*3/uL Eosinophils Absolute 0.11 0.00 - 0.70 x10*3/uL Basophils Absolute 0.02 0.00 - 0.10 x10*3/uL Basic metabolic panel Result Value Ref Range Glucose 96 74 - 99 mg/dL Sodium 139 136 - 145 mmol/L Potassium 4.3 3.5 - 5.3 mmol/L Chloride 105 98 - 107 mmol/L Bicarbonate 27 21 - 32 mmol/L Anion Gap 11 10 - 20 mmol/L Urea Nitrogen 15 6 - 23 mg/dL Creatinine 0.71 0.50 - 1.05 mg/dL eGFR >90 >60 mL/min/1.73m*2 Calcium 8.6 8.6 - 10.3 mg/dL Hepatic function panel Result Value Ref Range Albumin 4.0 3.4 - 5.0 g/dL Bilirubin, Total 0.3 0.0 - 1.2 mg/dL Bilirubin, Direct 0.0 0.0 - 0.3 mg/dL Alkaline Phosphatase 101 33 - 110 U/L ALT 19 7 - 45 U/L AST 20 9 - 39 U/L Total Protein 7.2 6.4 - 8.2 g/dL Sedimentation Rate Result Value Ref Range Sedimentation Rate 51 (H) 0 - 20 mm/h C-Reactive Protein Result Value Ref Range C-Reactive Protein 1.41 (H) <1.00 mg/dL Medical Decision Making & ED Course Medical Decision Makin y.o. 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 Patient's worsening back pain likely secondary to chronic back pain, postoperative seroma vs discitis, osteomyelitis, epiduralabscess, spinal cord compression, or cauda equina syndrome. Lower concern for in osteomyelitis and discitis given lack of focal spine tenderness or fever. Given that she presents with worsening shooting back pain and new urinary symptoms possibly concerning for neurogenic bladder, there is concern for acute compression for which MRI lumbar and thoracic spine, ESR, CRP, was ordered. IV Dilaudid given for pain control. Differential diagnoses considered include but are not limited to: postoperative seroma, discitis, osteomyelitis epidural abscess, spinal cord compression, cauda equina syndrome. Social Determinants of Health which Significantly Impact Care: None identified EKG Independent Interpretation: EKG interpreted by myself. Please see ED Course for full interpretation. Independent Result Review and Interpretation: Relevant laboratory and radiographic results were reviewed and independently interpreted by myself. As necessary, they are commented on in the ED Course. Chronic conditions affecting the patient's care: As documented above in [facility] The patient was discussed with the following consultants/services: None Care Considerations: As documented above in [facility] ED Course: ED Course as of 05/15/242119May 15, [id number] ED Attending Documentation: This patient was seen by the medical student I have seen and examined the patient, agree with the workup, evaluation, management and diagnosis. I reviewed and edited the above documentation where necessary. On my evaluation of the patient: 49-year-old who presents with back pain and new incontinence. She is not feeling she is emptying her bladder completely. She has had 3 days of back pain that is worse than her chronic pain. She has a known postop seroma of unknown sterility but no infectious symptoms, no fevers no sweats just worsening pain. She spoke with her neurosurgeon who asked her to come here given the new incontinence. Will obtain an MRI and basic labs, and then consult neurosurgery after those return. Maggie Degroot MD EM Attending Physician [RG] ED Course User Index [RG] Maggie Degroot MD Disposition Pending MR Results Procedures Procedures This was a shared visit with an ED attending. The patient was seen and discussed with the ED attending Maggie Degroot MD, MS3 Emergency Medicine [facility] Angelita 05/15/242049 Maggie Degroot MD 05/15/242119 ED Attending Documentation: This patient was seen by the M3. I have seen and examined the patient, agree with the workup, evaluation, management and diagnosis. I reviewed and edited the above documentation where necessary. Maggie Degroot MD 05/15/242120 [facility]02-21-2025 Emergency department Note* Angi Goldstein - 05/15/2024 8:19 PM EST History of Present Illness History provided by: Patient Limitations to History: None External Records Reviewed with Brief Summary: ED Note 05/15 and Neurosurgery 05/05 Notes, acute on chronic back s/p left L4-5 MIS hemilaminotomy, partial medial facetectomy, and microdiscectomy and seroma HPI: Jerad Tracy is a 49 y.o. 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 Patient has worsening sharp lower back pain shooting down her legs for the past few days as well asnew urinary symptoms. She states that the pain is unbearable doing anything , including sitting down, walking. She took Toradol and muscle relaxants but this has not helped. She states that she had 3-4 instances of urinary leakage today; this has happened before but not as consistently as today. Pain much worse than yesterday when she presented to ED with similar symptoms, called Neurosurgeon team today who recommended she come to ED. Patient present with fiancee today. Physical Exam Triage vitals: T 36.6 C (97.9 F) HR (!) 103 BP 157/87 RR 18 O2 100 % None (Room air) General: Awake, alert, in no acute distress Eyes: Gaze conjugate. No scleral icterus or injection HENT: Normo-cephalic, atraumatic. No stridor CV: Regular rate, regular rhythm. Radial pulses 2+ bilaterally Resp: Breathing non-labored, speaking in full sentences. Clear to auscultation bilaterally GI: Soft, non-distended, non-tender. No rebound or guarding. MSK/Extremities: No gross bony deformities. Moving all extremities. Tenderness to palpation T and Lparaspinal area. Skin: Warm. Appropriate color Neuro: Alert. Oriented. Face symmetric. Speech is fluent. Gross strength and sensation intact in b/l UE and LEs Psych: Appropriate mood and affect Results for orders placed or performed during the hospital encounter of 05/14/24 (from the past 96 hours) CBC and Auto Differential Result Value Ref Range WBC 9.1 4.4 - 11.3 x10*3/uL nRBC 0.0 0.0 - 0.0 /100 WBCs RBC 4.71 4.00 - 5.20 x10*6/uL Hemoglobin 13.9 12.0 - 16.0 g/dL Hematocrit 42.7 36.0 - 46.0 % MCV 91 80 - 100 fL MCH 29.5 26.0 - 34.0 pg MCHC 32.6 32.0 - 36.0 g/dL RDW 13.4 11.5 - 14.5 % Platelets 345 150 - 450 x10*3/uL Neutrophils % 66.3 40.0 - 80.0 % Immature Granulocytes %, Automated 0.3 0.0 - 0.9 % Lymphocytes % 24.9 13.0 - 44.0 % Monocytes % 7.1 2.0 - 10.0 % Eosinophils % 1.2 0.0 - 6.0 % Basophils % 0.2 0.0 - 2.0 % Neutrophils Absolute 6.01 1.20 - 7.70 x10*3/uL Immature Granulocytes Absolute, Automated 0.03 0.00 - 0.70 x10*3/uL Lymphocytes Absolute 2.26 1.20 - 4.80 x10*3/uL Monocytes Absolute 0.64 0.10 - 1.00 x10*3/uL Eosinophils Absolute 0.11 0.00 - 0.70 x10*3/uL Basophils Absolute 0.02 0.00 - 0.10 x10*3/uL Basic metabolic panel Result Value Ref Range Glucose 96 74 - 99 mg/dL Sodium 139 136 - 145 mmol/L Potassium 4.3 3.5 - 5.3 mmol/L Chloride 105 98 - 107 mmol/L Bicarbonate 27 21 - 32 mmol/L Anion Gap 11 10 - 20 mmol/L Urea Nitrogen 15 6 - 23 mg/dL Creatinine 0.71 0.50 - 1.05 mg/dL eGFR >90 >60 mL/min/1.73m*2 Calcium 8.6 8.6 - 10.3 mg/dL Hepatic function panel Result Value Ref Range Albumin 4.0 3.4 - 5.0 g/dL Bilirubin, Total 0.3 0.0 - 1.2 mg/dL Bilirubin, Direct 0.0 0.0 - 0.3 mg/dL Alkaline Phosphatase 101 33 - 110 U/L ALT 19 7 - 45 U/L AST 20 9 - 39 U/L Total Protein 7.2 6.4 - 8.2 g/dL Sedimentation Rate Result Value Ref Range Sedimentation Rate 51 (H) 0 - 20 mm/h C-Reactive Protein Result Value Ref Range C-Reactive Protein 1.41 (H) <1.00 mg/dL Medical Decision Making & ED Course Medical Decision Makin y.o. 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 Patient's worsening back pain likely secondary to chronic back pain, postoperative seroma vs discitis, osteomyelitis, epiduralabscess, spinal cord compression, or cauda equina syndrome. Lower concern for in osteomyelitis and discitis given lack of focal spine tenderness or fever. Given that she presents with worsening shooting back pain and new urinary symptoms possibly concerning for neurogenic bladder, there is concern for acute compression for which MRI lumbar and thoracic spine, ESR, CRP, was ordered. IV Dilaudid given for pain control. Differential diagnoses considered include but are not limited to: postoperative seroma, discitis, osteomyelitis epidural abscess, spinal cord compression, cauda equina syndrome. Social Determinants of Health which Significantly Impact Care: None identified EKG Independent Interpretation: EKG interpreted by myself. Please see ED Course for full interpretation. Independent Result Review and Interpretation: Relevant laboratory and radiographic results were reviewed and independently interpreted by myself. As necessary, they are commented on in the ED Course. Chronic conditions affecting the patient's care: As documented above in [facility] The patient was discussed with the following consultants/services: None Care Considerations: As documented above in [facility] ED Course: ED Course as of 05/15/242119May 15, [id number] ED Attending Documentation: This patient was seen by the medical student I have seen and examined the patient, agree with the workup, evaluation, management and diagnosis. I reviewed and edited the above documentation where necessary. On my evaluation of the patient: 49-year-old who presents with back pain and new incontinence. She is not feeling she is emptying her bladder completely. She has had 3 days of back pain that is worse than her chronic pain. She has a known postop seroma of unknown sterility but no infectious symptoms, no fevers no sweats just worsening pain. She spoke with her neurosurgeon who asked her to come here given the new incontinence. Will obtain an MRI and basic labs, and then consult neurosurgery after those return. Maggie Degroot MD EM Attending Physician [RG] ED Course User Index [RG] Maggie Degroot MD Disposition Pending MR Results Procedures Procedures This was a shared visit with an ED attending. The patient was seen and discussed with the ED attending Maggie Degroot MD, MS3 Emergency Medicine Angi Goldstein 05/15/242049 Maggie Degroot MD 05/15/242119 ED Attending Documentation: This patient was seen by the M3. I have seen and examined the patient, agree with the workup, evaluation, management and diagnosis. I reviewed and edited the above documentation where necessary. Maggie Degroot MD 05/15/242120 * Jessica Hemphill RN - 05/15/2024 5:21 PM EST Patient has herniated bulging discs in L4 and L5 and has two accidents due to pain. Patient is alsocomplaining of numbness and tingling in bilateral legs. [facility] 1(443) 872-355902-21-2025 Emergency department Triage note* Jessica Hemphill RN - 05/15/2024 5:21 PM EST Patient has herniated bulging discs in L4 and L5 and has two accidents due to pain. Patient is alsocomplaining of numbness and tingling in bilateral legs. [facility] Work Phone: 1(356) 245-394902-20-2025 Physician Emergency department Note* Rd Reza MD - 05/14/2024 10:13 PM EST HPI Chief Complaint Patient presents with Back Pain HPI: [] 49-year-old white female history of hypertension, high BMI, anxiety, bipolar disorder, chronic backpain, status post lumbar discectomy in January last year status post multiple ED visits and hospitalization for chronic back pain had MRI done recently which showed question of fluid in the surgicalbed improving and then prior imaging also had a T12-L1 lesion concerning for other neural sheath tumor versus a cyst due for evaluation and surgery by neurosurgery comes in with atraumatic back pain.She states that couple days ago she twisted her back and has severe back pain. It does radiate to her left leg. No direct trauma she has no incontinence no seizures leg feels numb able to ambulate without wear weight no fever no chills no drug use history no abdominal pain no nausea vomiting diarrhea constipation no syncope or near syncope. Past history: High BMI, anxiety, bipolar disorder, chronic back pain, lumbosacral spine surgery Social: Patient is a smoker denies alcohol denies drug abuse. REVIEW OF SYSTEMS: GENERAL.: No weight loss, fatigue, anorexia, insomnia, fever. EYES: No vision loss, double vision, drainage, eye pain. ENT: No pharyngitis, dry mouth. CARDIOPULMONARY: No chest pain, palpitations, syncope, near syncope. No shortness of breath, cough,hemoptysis. GI: No abdominal pain, change in bowel habits, melena, hematemesis, hematochezia, nausea, vomiting,diarrhea. : No discharge, dysuria, frequency, urgency, hematuria. MS: No limb pain, joint pain, joint swelling. Positive back pain SKIN: No rashes. PSYCH: No depression, anxiety, suicidality, homicidality. Review of systems is otherwise negative unless stated above or in history of present illness. Social history, family history, allergies reviewed. PHYSICAL EXAM: GENERAL: Vitals noted, no distress. Alert and oriented x 3. Non-toxic. Appears uncomfortable high BMI EENT: TMs clear. Posterior oropharynx unremarkable. No meningismus. No LAD. NECK: Supple. Nontender. No midline tenderness. CARDIAC: Regular, rate, rhythm. No murmurs rubs or gallops. No JVD PULMONARY: Lungs clear bilaterally with good aeration. No wheezes rales or rhonchi. No respiratory distress. ABDOMEN: Soft, nonsurgical. Nontender. No peritoneal signs. Normoactive bowel sounds. No pulsatile masses. EXTREMITIES: No peripheral edema. Negative Homans bilaterally, no cords. 2+ bounding pulses well-perfused. Musculoskeletal: Patient no midline C, T, L-spine tenderness. He is tender palpation in the left paraspinal area of the L5-S1 area. Straight leg is positive left side at about 45 degrees. SKIN: No rash. Intact. NEURO: No focal neurologic deficits, NIH score of 1. Cranial nerves normal as tested from II through XII. Patient motor strength lower extremities 5 out of 5 equal and symmetric DTRs 2+ at the knees bilaterally symmetrical 1+ at the ankles she does have decreased pinprick sensation left lower extremity. She has no saddle anesthesia. MEDICAL DECISION MAKING: CBC with shows no leukocytosis chemistries unremarkable ESR CP mildly elevated. Treatment: IV established given intravenous morphine, Zofran, hydromorphone and Robaxin. Consult: Discussed with neurosurgery on-call and they reviewed the patient's chart and imaging and recommended outpatient follow-up. ED course: Patient jai stable hemodynamically pain well-controlled Impression: Acute on back pain/lumbosacral radiculopathy Plan set MDM: 49 female status post lumbar spine surgery late last year comes in with acute on chronic back pain currently neurologic intact except for some sensory deficits otherwise no motor deficits no incontinence close concern for discitis osteomyelitis epidural abscess spinal cord compressionor cauda equina syndrome discussed with neurosurgery as per the recommendation may be discharged home advised outpatient follow-up with primary doctor and his pain management physician and neurosurgery as scheduled with of course strict return precaution. 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 Physical Exam ED Triage Vitals Temperature Heart Rate Respirations BP 05/14/24 1523 05/14/24 1523 05/14/24 1523 05/14/24 1525 36.6 C (97.9 F) (!) 104 20 (!) 125/94 Pulse Ox Temp Source Heart Rate Source Patient Position 05/14/24 1523 05/14/24 2202 05/14/24 2202 05/14/24 220 98 % Oral Monitor Sitting BP Location FiO2 (%) 05/14/242201 -- Right arm Physical Exam ED Course & MDM ED Course as of 05/14/24 2213 Shira May 14, [id number] CBC with differential shows no leukocytosis chemistries LFTs are normal ESR 51 CRP 1.41, discussed neurosurgery at length and reviewed images reviewed the lab work they recommended outpatient follow-up patient okay with the plan. [MT] ED Course User Index [MT] Rd Reza MD Diagnoses as of 05/14/242212 Acute exacerbation of chronic low back pain No data recorded [place] Coma Scale Score: 15 (05/14/24 1805 : Aminata Tellez RN) Medical Decision Making Procedure Procedures Rd Reza MD 05/14/242215 [facility] Work Phone: 1(223) 361-123402-20-2025 Emergency department Note* Rd Reza MD - 05/14/2024 10:13 PM EST HPI Chief Complaint Patient presents with Back Pain HPI: [] 49-year-old white female history of hypertension, high BMI, anxiety, bipolar disorder, chronic backpain, status post lumbar discectomy in January last year status post multiple ED visits and hospitalization for chronic back pain had MRI done recently which showed question of fluid in the surgicalbed improving and then prior imaging also had a T12-L1 lesion concerning for other neural sheath tumor versus a cyst due for evaluation and surgery by neurosurgery comes in with atraumatic back pain.She states that couple days ago she twisted her back and has severe back pain. It does radiate to her left leg. No direct trauma she has no incontinence no seizures leg feels numb able to ambulate without wear weight no fever no chills no drug use history no abdominal pain no nausea vomiting diarrhea constipation no syncope or near syncope. Past history: High BMI, anxiety, bipolar disorder, chronic back pain, lumbosacral spine surgery Social: Patient is a smoker denies alcohol denies drug abuse. REVIEW OF SYSTEMS: GENERAL.: No weight loss, fatigue, anorexia, insomnia, fever. EYES: No vision loss, double vision, drainage, eye pain. ENT: No pharyngitis, dry mouth. CARDIOPULMONARY: No chest pain, palpitations, syncope, near syncope. No shortness of breath, cough,hemoptysis. GI: No abdominal pain, change in bowel habits, melena, hematemesis, hematochezia, nausea, vomiting,diarrhea. : No discharge, dysuria, frequency, urgency, hematuria. MS: No limb pain, joint pain, joint swelling. Positive back pain SKIN: No rashes. PSYCH: No depression, anxiety, suicidality, homicidality. Review of systems is otherwise negative unless stated above or in history of present illness. Social history, family history, allergies reviewed. PHYSICAL EXAM: GENERAL: Vitals noted, no distress. Alert and oriented x 3. Non-toxic. Appears uncomfortable high BMI EENT: TMs clear. Posterior oropharynx unremarkable. No meningismus. No LAD. NECK: Supple. Nontender. No midline tenderness. CARDIAC: Regular, rate, rhythm. No murmurs rubs or gallops. No JVD PULMONARY: Lungs clear bilaterally with good aeration. No wheezes rales or rhonchi. No respiratory distress. ABDOMEN: Soft, nonsurgical. Nontender. No peritoneal signs. Normoactive bowel sounds. No pulsatile masses. EXTREMITIES: No peripheral edema. Negative Homans bilaterally, no cords. 2+ bounding pulses well-perfused. Musculoskeletal: Patient no midline C, T, L-spine tenderness. He is tender palpation in the left paraspinal area of the L5-S1 area. Straight leg is positive left side at about 45 degrees. SKIN: No rash. Intact. NEURO: No focal neurologic deficits, NIH score of 1. Cranial nerves normal as tested from II through XII. Patient motor strength lower extremities 5 out of 5 equal and symmetric DTRs 2+ at the knees bilaterally symmetrical 1+ at the ankles she does have decreased pinprick sensation left lower extremity. She has no saddle anesthesia. MEDICAL DECISION MAKING: CBC with shows no leukocytosis chemistries unremarkable ESR CP mildly elevated. Treatment: IV established given intravenous morphine, Zofran, hydromorphone and Robaxin. Consult: Discussed with neurosurgery on-call and they reviewed the patient's chart and imaging and recommended outpatient follow-up. ED course: Patient jai stable hemodynamically pain well-controlled Impression: Acute on back pain/lumbosacral radiculopathy Plan set MDM: 49 female status post lumbar spine surgery late last year comes in with acute on chronic back pain currently neurologic intact except for some sensory deficits otherwise no motor deficits no incontinence close concern for discitis osteomyelitis epidural abscess spinal cord compressionor cauda equina syndrome discussed with neurosurgery as per the recommendation may be discharged home advised outpatient follow-up with primary doctor and his pain management physician and neurosurgery as scheduled with of course strict return precaution. 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 Physical Exam ED Triage Vitals Temperature Heart Rate Respirations BP 05/14/24 1523 05/14/24 1523 05/14/24 1523 05/14/24 1525 36.6 C (97.9 F) (!) 104 20 (!) 125/94 Pulse Ox Temp Source Heart Rate Source Patient Position 05/14/24 1523 05/14/24 2202 05/14/24 2202 05/14/24 2202 98 % Oral Monitor Sitting BP Location FiO2 (%) 05/14/242201 -- Right arm Physical Exam ED Course & MDM ED Course as of 05/14/24 2213 Shira May 14, [id number] CBC with differential shows no leukocytosis chemistries LFTs are normal ESR 51 CRP 1.41, discussed neurosurgery at length and reviewed images reviewed the lab work they recommended outpatient follow-up patient okay with the plan. [MT] ED Course User Index [MT] Rd Reza MD Diagnoses as of 05/14/242212 Acute exacerbation of chronic low back pain No data recorded Gadiel Coma Scale Score: 15 (05/14/24 1805 : Aminata Tellez RN) Medical Decision Making Procedure Procedures Rd Reza MD 05/14/242215 * Esvin Dobbs RN - 05/14/2024 3:25 PM EST Pt presents with the c/o increased lower pack pain. 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 [facility] Work Phone: 1(608) 247-245102-20-2025 Emergency department Triage note* Esvin Dobbs RN - 05/14/2024 3:25 PM EST Pt presents with the c/o increased lower pack pain. 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 [facility] Work Phone: 1(410) 391-878002-20-2025 Evaluation + Plan noteExtracted from:Title: ED NoteAuthor:Gumaro MILES, Manuel Hernandez.Date:05/14/24 Chronic back pain (M54.9: Do rsalgia, unspecified) Low back pain (M54.50: Low back pain, unspecified) Lumbar radiculopathy (M54.16: Radiculopathy, lumbar region) Other chronic pain (G89.29: Other chronic pain) Future Scheduled Tests Laboratory* TSH With T4fr Reflex 07/17/23 * Urinalysis with Micro 07/17/23 * Lipid Panel 07/17/23 * Drug Screen Urine 07/17/23 Radiology* MA Mamm Screen w/CAD if perf and 3D [place] 07/17/23 [facility] 02-20-2025 Hospital Discharge instructions Patient Education 05/14/2024 09:24:27 Chronic Back Pain Chronic Back Pain Chronic [...] pull them backward. 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 Take brief [...] to your body. ?Avoid twisting. Medicines Take fezr-ftv-ledvbbq and prescription medicines only as told by [...] keep your pee (urine) pale yellow. ?Take ftgu-bdp-hkamrql or prescription medicines. ?Eat foods that are [...] provider. Document Revised: 10/29/2022 Document Reviewed: 10/29/2022 [employer] Patient Education 2023 [employer]. Follow Up Care 05/14/2024 09:05:39 With:[facility] Address: [address] [place] [phone] Business (1) When:05/17/2024 09:17:47 With:MARLEE FITZPATRICK Address: [address] [place] [phone]- Business (1) When:05/17/2024 09:17:42 [facility] [phone] NoteHNO ID: [id number] Author: ALLYN LEE MA Service: ? Author Type: [employer] Type: Progress Notes Filed: 06/05/2024 13:42 Note Text: Items addressed in this encounter: Virtual Visit Pre Check In Attempted to reach patient no answer Allyn Lee MA May 14, 2024 8:43 AM 8:43 AM Items addressed in this encounter: Telephone Encounter Was able to reach patient to adjust appt time. Patient asked for call back later for precheck prior to appt. Allyn Lee MA May 14, 2024 12:22 PM 12:22 [facility]02-20-2025 NoteED Patient Education Note Orthopedics Chronic Back [...] them backward. ??? 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 ??? Take [...] body. ? Avoid twisting. Medicines ??? Take dgab-jyp-dsyumel and prescription medicines only as told by [...] your pee (urine) pale yellow. ? Take ihpd-jjk-zxybhtm or prescription medicines. ? Eat foods that [...] provider. Document Revised: 10/29/2022 Document Reviewed: 10/29/2022 [employer] Patient Education ? 2023 [employer].[facility] 05-05-2024 History of Present illness Narrative* Judah Woodard MD - 05/05/2024 2:00 PM EST Jerad Tracy is here for neurosurgical follow-up s/p left L4-5 MIS hemilaminotomy, partial medial facetectomy, and microdiscectomy done on 02/06/24. She has history of prior SCS placement c/b infection and subsequent removal (Dr. Elke Adams). She has also seen Dr. Melgoza in the past, but not since her MIS lami/discectomy. She had about 6 weeks of relatively good pain relief after her surgery, but her pain got worse after this. Her pain is mostly in her low back and that is what bothers herthe most. She also gets pain down her left leg in nondermatomal distribution ( whole leg ). She occasionally gets a right anterior thigh pain as well. She has ended up in the emergency department forsevere pain multiple times. She is taking flexeril, oxycodone, NSAIDs. I personally reviewed MRI L spine done on 04/24/2024 and compared to pre-op MRI (01/20/2024). There is a seroma - inconsequential/expected after this surgery given her morbid obesity. This will resolve/scar over a long period of time. And, yes, there is some residual disc bulging/scar tissue, but looks overall more open compared to pre-op MRI. I do not have a lot else to offer her. I would not recommend any sort of fusion/revision discectomy at this time. Her distribution of her pain in non-dermatomal. I think she may benefit from GABRIEL/RFA from pain management and consider replacement of her SCS. Judah Woodard MD documented in this encounterJoint [facility] Work Phone: [phone]) 937-291402-08-2025 Nurse Note* Carissa Luna RN - 05/02/2024 5:20 PM EST Reviewed discharge instructions with the patient. Informed the patient to follow up with pain medicine, primary care, and neurosurgery. Reviewed correct administration of medications as listed on discharge paperwork. Informed the patient to not drive or operate machinery while taking flexeril or oxycodone. Patient verbalized understanding to not drive or operate machinery while taking flexeril and oxycodone. Patient did not have any questions regarding discharge instructions. Patient's significant other drove the patient home. [facility] Nurse Note* Carissa Luna RN - 05/02/2024 5:20 PM EST Reviewed discharge instructions with the patient. Informed the patient to follow up with pain medicine, primary care, and neurosurgery. Reviewed correct administration of medications as listed on discharge paperwork. Informed the patient to not drive or operate machinery while taking flexeril or oxycodone. Patient verbalized understanding to not drive or operate machinery while taking flexeril and oxycodone. Patient did not have any questions regarding discharge instructions. Patient's significant other drove the patient home. documented in this [facility] Work Phone: 1(326) 331-848202-08-2025 Miscellaneous Notes* Care Plan - Carissa Luna RN - 05/02/2024 9:00 AM EST Problem: Pain - Adult Goal: Verbalizes/displays adequate comfort level or baseline comfort level Outcome: Progressing Problem: Fall/Injury Goal: Not fall by end of shift Outcome: Progressing Goal: Be free from injury by end of the shift Outcome: Progressing Goal: Verbalize understanding of personal risk factors for fall in the hospital Outcome: Progressing Goal: Use assistive devices by end of the shift Outcome: Progressing Goal: Pace activities to prevent fatigue by end of the shift Outcome: Progressing The clinical goals for the shift include Patient's pain controlled to tolerable level. Patient compliant with DVT prophylaxis. Patient remains safe and free from falls. * Care Plan - Abby Maya RN - 05/01/2024 3:34 PM EST Problem: Pain - Adult Goal: Verbalizes/displays adequate comfort level or baseline comfort level Outcome: Progressing Problem: Safety - Adult Goal: Free from fall injury Outcome: Progressing Problem: Discharge Planning Goal: Discharge to home or other facility with appropriate resources Outcome: Progressing Problem: Chronic Conditions and Co-morbidities Goal: Patient's chronic conditions and co-morbidity symptoms are monitored and maintained or improved Outcome: Progressing Problem: Nutrition Goal: Nutrient intake appropriate for maintaining nutritional needs Outcome: Progressing The patient's goals for the shift include The clinical goals for the shift include pt will remain HDS throughout shift * Assessment & Plan Note - Starr Tran MD - 05/01/2024 12:43 PM ESTAssociated Problem(s): Chronic low back pain with left-sided sciatica, unspecified back pain laterality 49 y.o. F w/PMHx recent L4-L5 MIS [...] admission) SURROGATE DECISION MAKER: Avery (evin ) [phone] documented in this encounterJoint [facility] Work Phone: [phone]) 199-154902-08-2025 Plan of care note* Care Plan - Carissa Luna RN - 05/02/2024 9:00 AM EST Problem: Pain - Adult Goal: Verbalizes/displays adequate comfort level or baseline comfort level Outcome: Progressing Problem: Fall/Injury Goal: Not fall by end of shift Outcome: Progressing Goal: Be free from injury by end of the shift Outcome: Progressing Goal: Verbalize understanding of personal risk factors for fall in the hospital Outcome: Progressing Goal: Use assistive devices by end of the shift Outcome: Progressing Goal: Pace activities to prevent fatigue by end of the shift Outcome: Progressing The clinical goals for the shift include Patient's pain controlled to tolerable level. Patient compliant with DVT prophylaxis. Patient remains safe and free from falls. [facility] Work Phone: 1([phone]) 148-782102-08-2025 History of Present illness Narrative* Ming Love MD - 05/02/2024 8:26 AM EST Jerad Collins is a 49 y.o. female on day 1 of admission presenting with Chronic low back pain with left-sided sciatica, unspecified back pain laterality. Subjective NE Objective Last Recorded Vitals BP 127/83 Pulse 82 Temp 36.1 C (97 F) Resp 16 Wt 113 kg (250 lb) SpO2 97% Intake/Output last 3 Shifts: No intake or output data in the 24 hours ending 05/02/24825 Admission Weight Weight: 113 kg (250 lb) (04/30/242025) Daily Weight 04/30/24 : 113 kg (250 lb) Image Results MR transfer of outside films Outside images for comparison or treatment purposes, not interpreted by Radiologists. Physical Exam Relevant Results Assessment/Plan Assessment & Plan Chronic low back pain with left-sided sciatica, unspecified back pain laterality 49 y.o. F w/PMHx recent L4-L5 MIS [...] (confirmed on admission) SURROGATE DECISION MAKER: Avery ([facility] ) [phone] Ming Love MD * Basia Muñiz - 05/01/2024 10:30 AM EST Pharmacy Medication History Review Jerad Collins is a 49 y.o. female admitted for Chronic low back pain with left-sided sciatica, unspecified back pain laterality. Pharmacy reviewed the patient's oimcw-xc-ufpxmyjrc medications and allergies for accuracy. Medications ADDED: Diclofenac gel Oxycodone Ibuprofen 800 Medications CHANGED: Coreg Albuterol Prozac Methadone Medications REMOVED: Ibuprofen 600 Prior to Admission Medications Prescriptions Last Dose Informant FLUoxetine (PROzac) 60 mg tablet Not Taking Self Sig: Take 1 tablet (60 mg) by mouth once daily. Patient not taking: Reported on 05/01/2024 albuterol 90 mcg/actuation aerosol powdr breath activated inhaler Not Taking Self Sig: Inhale 2 puffs every 4 hours if needed for wheezing. Patient not taking: Reported on 05/01/2024 carvedilol (Coreg) 6.25 mg tablet Not Taking Self Sig: Take 0.5 tablets (3.125 mg) by mouth 2 times a day. Patient not taking: Reported on 05/01/2024 cyclobenzaprine (Flexeril) 10 mg tablet 04/30/2024 Self Sig: Take 1 tablet (10 mg) by mouth 3 times a day as needed for muscle spasms for up to 7 days. diclofenac sodium (Voltaren) 1 % gel 04/30/2024 Self Sig: Apply 4.5 inches (4 g) topically 4 times a day. hydrOXYzine HCL (Atarax) 25 mg tablet 04/30/2024 Self Sig: Take 1 tablet (25 mg) by mouth 3 times a day as needed for anxiety. ibuprofen 600 mg tablet Not Taking Self Sig: Take 1 tablet (600 mg) by mouth every 6 hours if needed for mild pain (1 - 3) or fever (temp greater than 38.0 C). Patient not taking: Reported on 05/01/2024 ibuprofen 800 mg tablet 04/30/2024 Self Sig: Take 1 tablet (800 mg) by mouth every 8 hours if needed for mild pain (1 - 3). lidocaine (Lidoderm) 5 % patch Past Week Self Sig: Place 1 patch on the skin once daily. Remove & discard patch within 12 hours or as directed by MD. methadone (Dolophine) 5 mg tablet Not Taking Sig: Take 1 tablet (5 mg) by mouth every 6 hours if needed for severe pain (7 - 10). Patient not taking: Reported on 05/01/2024 omeprazole (PriLOSEC) [address] capsule 04/30/2024 Self Sig: Take 2 capsules (40 mg) by mouth once daily as needed. Do not crush or chew. oxyCODONE-acetaminophen (Percocet) 5-325 mg tablet 04/30/2024 Self Sig: Take 1 tablet by mouth every 6 hours if needed for moderate pain (4 - 6). Facility-Administered Medications: None The list below reflects the updated allergy list. Please review each documented allergy for additional clarification and justification. Allergies Reviewed by Basia Muñiz on 05/01/2024 Severity Reactions Comments Penicillins Medium Hives Reported hives as a child. Prescribed cephalexin September 2023 and reported itching only (no rash/hives). Also reports having taken amoxicillin in the past and tolerated. Diclofenac Not Specified Hives Gabapentin Not Specified Headache Lyrica [pregabalin] Not Specified Swelling BLE Tylenol [acetaminophen] Not Specified Unknown History of stage III liver fibrosis Nabumetone Low Nausea/vomiting, Rash Patient accepts M2B at discharge. Sources: [facility] Pharmacy dispense history Patient interview Good historian Chart Review Care Everywhere Additional Comments: Patient reports no longer taking Coreg, Proxac, Methadone, and Albuterol. Patient reports she does taking Methadone 5mg because she does not like the way it made her feel Per patient and dispense history the patient now takes Ibuprofen 800mg instead of 600mg tablets. Patient states she does not take Prednisone 10mg or 20mg. Per dispense history 20mg was filled 03/28/2024 and 20mg was filled 04/28/2024. 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 Secure Chat preferred If no response call [phone] or [employer] Med Rec Cosigned by Omayra Polk PharmD at 05/01/2024 11:54 AM EST documented in this encounterJoint [facility] Work Phone: [phone]) 448-938102-07-2025 Plan of care note* Care Plan - Abby Maya RN - 05/01/2024 3:34 PM EST Problem: Pain - Adult Goal: Verbalizes/displays adequate comfort level or baseline comfort level Outcome: Progressing Problem: Safety - Adult Goal: Free from fall injury Outcome: Progressing Problem: Discharge Planning Goal: Discharge to home or other facility with appropriate resources Outcome: Progressing Problem: Chronic Conditions and Co-morbidities Goal: Patient's chronic conditions and co-morbidity symptoms are monitored and maintained or improved Outcome: Progressing Problem: Nutrition Goal: Nutrient intake appropriate for maintaining nutritional needs Outcome: Progressing The patient's goals for the shift include The clinical goals for the shift include pt will remain HDS throughout shift [facility] Work Phone: [phone]) 605-517102-07-2025 Evaluation + Plan note* Assessment & Plan Note - Starr Tran MD - 05/01/2024 12:43 PM ESTAssociated Problem(s): Chronic low back pain with left-sided sciatica, unspecified back pain lateral ity 49 y.o. F w/PMHx recent L4-L5 MIS [...] (confirmed on admission) SURROGATE DECISION MAKER: Avery patel ) [phone] [facility] Work Phone: [phone]) [phone] History and physical note* Starr Tran MD - 05/01/2024 12:40 PM EST History Of Present Illness 49 y.o. F w/PMHx HCV, GERD, depression, bipolar disease, tobacco use, recent L4- L5 MIS discectomy 01/2024 and subsequent recent numerous ED visits for back pain, who presented to ED with acute on chronic back pain. Patient reports chronic back pain preceded discectomy. She had a SCS placed for the back pain 09/23/23, however this was c/b wound dehiscence 10/14/23 requiring wound washout and generator removal. She reports her SCS helped significantly with her pain and since it has been removed she has been struggling. Underwent a MIS L4-L5 microdiscectomy 02/06/[address] Woodard ([facility]) for lumbar disc herniation with radiculopathy. Last saw him 03/10/24 at which she noted her L leg pain and numbness had improved.Had fall around this time resulting in non-displaced S2 fracture. Patient reported persistent back pain - worse with sitting and standing. She was to FU with Dr. Adams in functional/pain NSGY for chronic LBP and for consideration for SCS. Her FU with Dr. Adams was today, thus could not make it. She also recently saw pain management at [facility] (03/30/24), who believed her clinical picture was c/w lumbar radiculopathy with persistent weakness of LLE and pain. She was referred for PT and started on methadone 5 mg BID. She was to be reassessed in 1 month. She only took a few days of the methadone before self- discontinuing because it caused her to feel foggy. Was not able to do PT because shehasn't been able to do much activity 2/2 pain limitations. She recently sought a second opinion with [facility] spine surgery for this LBP (04/23/24). Imaging was reviewed. MRI L spine notable for possible hematoma vs seroma vs infection, L lateral recess narrowing L4-L5, and mild spondylolisthesis. Labs were ordered to rule out evolving infection - CRP normal, ESR mildly elevated 22. L lateral recess narrowing and spondylolisthesis not thought to be contributing to symptoms in the absence of leg pain. L spine X-ray was ordered to rule out new mechanical spondylolisthesis as cause of worsening symptoms (not performed). Patient was advised that given current BMI she would not be a surgical candidate at [facility]. Discussed that treatment is rest, PT x6 weeks and surgery FU. At bedside, patient endorses above history. Says her lower back pain has worsened a lot more in thelast 3 weeks. No specific trigger. Burning and throbbing, rates 10/10. Radiates to LLE. Worse with standing and sitting, better with laying supine. Has some urinary incontinence but this is chronic per patient. Has loss of sensation in LLE, which is also chronic. No saddle anesthesia. Has tried ibuprofen, lidocaine patch, muscle relaxants at home without improvement. ED COURSE: - Vital Signs: T 36.7C, HR 96-102, RR 16-18, BP 128-159/85-114, 96 RA - Labs: CBC: WBC 7.7, Hb 14.3, Plt 360 CHEM: Na 140, K 5.3, Cl 106, Bicarb 26, BUN 15, Cr 0.71 LFTs: Alk phos 102, ALT 27, AST 36, TBili 0.4 Calcium: 9.3 COAGS: INR 1, PT 11.6 ESR/CRP: 25 (H)/0.26 - EKG: pending - Imaging: CT L spine w/o contrast 04/24/24 IMPRESSION: No acute fracture or traumatic subluxation. Stable postsurgical changes from left L4 hemilaminectomy. Interval decrease in left paraspinal postsurgical collection likely due to postoperative seroma. Incidental stable left adrenal nodule measures 1.2 x 1.8 cm. MR L spine w/o IV contrast 04/24/24 IMPRESSION: 1. No critical spinal canal or neural foraminal stenosis. 2. Redemonstration of loculated fluid collection within the soft tissues posterior to L4-5, within the surgical bed, stable in size and appearance when compared to same day CT lumbar spine but gradually decreased in size compared to multiple prior examinations measuring up to 4.5 x 3.3 x 3.1 cm, possibly representing postoperative seroma (series 4, image 19 and series 6, image 42), although the sterility of this fluid can not be determined by imaging; correlate clinically with infection to exclude the less favored possibility of abscess. Differential diagnosis includes possible pseudomeningocele. The fluid of this cystic region would likely be amenable to image guided percutaneous sampling for laboratory analysis as clinically indicated. 3. 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 - ED Interventions: IV dilaudid 0.5 mg x2, lidocaine patch, Robaxin 1000 mg Past Medical History She has a past medical history of Anxiety, Arthritis, Bipolar disorder, Chronic pain disorder, Depression, HCV (hepatitis C virus) (2013), Herniated lumbar intervertebral disc, Liver disease, Lumbar radiculopathy, chronic, Neuropathic pain, Obesity, and Vision loss. Surgical History She has a past surgical history that includes Cholecystectomy; Hysterectomy; Tonsillectomy; Myringotomy w/ tubes (Bilateral); Dental surgery (Bilateral); Bunionectomy (Bilateral); Colonoscopy; Adenoidectomy; Spinal cord stimulator removal (10/14/2023); Spinal cord stimulator implant (09/23/2023); and Spinal cord stimulator trial w/ laminotomy (08/21/2023). Social History She reports that she has been smoking cigarettes. She started smoking about 33 years ago. She has a16.6 pack-year smoking history. She has never used smokeless tobacco. She reports that she does notcurrently use drugs. She reports that she does not drink alcohol. Family History Family History Problem Relation Name Age of Onset Lung disease Mother COPD Mother Lung disease Father Lung cancer Father Heart disease Father Allergies Penicillins, Diclofenac, Gabapentin, Lyrica [pregabalin], Tylenol [acetaminophen], and Nabumetone Review of Systems Constitutional: Positive for activity change. Negative for fever and unexpected weight change. HENT: Negative. Respiratory: Negative. Cardiovascular: Negative. Gastrointestinal: Negative. Genitourinary: Negative. Musculoskeletal: Positive for back pain, gait problem and myalgias. PHYSICAL EXAM: General: laying in ED gurney, appears uncomfortable, holding on to edges of bed HEENT: facial plethora, PERRL, MMM Skin: WWP Chest: decreased breath sounds, normal respiratory effort, not on supplemental oxygen Cardiac: RRR Abdomen: soft, ND, NT EXT: no peripheral edema, no asymmetry noted MSK: reduced sensation in LLE from anterior thigh to gil, 3-4/strength in LLE, 5/5 strength in RLE Neuro: AOx3, CN2-12 intact Last Recorded Vitals BP 139/85 (BP Location: Left arm, Patient Position: Lying) Pulse 96 Temp 36.6 C (97.8 F) (Oral) Resp 16 Wt 113 kg (250 lb) SpO2 96% Assessment/Plan Assessment & Plan Chronic low back pain with left-sided sciatica, unspecified back pain laterality 49 y.o. F w/PMHx recent L4-L5 MIS [...] admission) SURROGATE DECISION MAKER: Avery (evin ) [phone] Starr Tran MD Cosigned by Ming Love MD at 05/01/2024 2:06 PM EST Associated attestation - Ming Love MD - 05/01/2024 2:06 PM EST I conducted an assessment of the patient, personally acquiring essential components of their medical history and participating in crucial aspects of the physical examination, either directly or by overseeing the resident's execution of these tasks. Subsequently, I meticulously reviewed the documentation provided by the resident and engaged in a comprehensive discussion regarding the patient's condition. I am in concurrence with the medical decision-making outlined in the resident's note. [facility] Work Phone: [phone] 255-939002-07-2025 History and physical note* Starr Tran MD - 05/01/2024 12:40 PM EST History Of Present Illness 49 y.o. F w/PMHx HCV, GERD, depression, bipolar disease, tobacco use, recent L4- L5 MIS discectomy 01/2024 and subsequent recent numerous ED visits for back pain, who presented to ED with acute on chronic back pain. Patient reports chronic back pain preceded discectomy. She had a SCS placed for the back pain 09/23/23, however this was c/b wound dehiscence 10/14/23 requiring wound washout and generator removal. She reports her SCS helped significantly with her pain and since it has been removed she has been struggling. Underwent a MIS L4-L5 microdiscectomy 02/06/[address] Woodard ( NSGY) for lumbar disc herniation with radiculopathy. Last saw him 03/10/24 at which she noted her L leg pain and numbness had improved.Had fall around this time resulting in non-displaced S2 fracture. Patient reported persistent back pain - worse with sitting and standing. She was to FU with Dr. Adams in functional/pain NSGY for chronic LBP and for consideration for SCS. Her FU with Dr. Adams was today, thus could not make it. She also recently saw pain management at [facility] (03/30/24), who believed her clinical picture was c/w lumbar radiculopathy with persistent weakness of LLE and pain. She was referred for PT and started on methadone 5 mg BID. She was to be reassessed in 1 month. She only took a few days of the methadone before self- discontinuing because it caused her to feel foggy. Was not able to do PT because shehasn't been able to do much activity 2/2 pain limitations. She recently sought a second opinion with [facility] spine surgery for this LBP (04/23/24). Imaging was reviewed. MRI L spine notable for possible hematoma vs seroma vs infection, L lateral recess narrowing L4-L5, and mild spondylolisthesis. Labs were ordered to rule out evolving infection - CRP normal, ESR mildly elevated 22. L lateral recess narrowing and spondylolisthesis not thought to be contributing to symptoms in the absence of leg pain. L spine X-ray was ordered to rule out new mechanical spondylolisthesis as cause of worsening symptoms (not performed). Patient was advised that given current BMI she would not be a surgical candidate at [facility]. Discussed that treatment is rest, PT x6 weeks and surgery FU. At bedside, patient endorses above history. Says her lower back pain has worsened a lot more in thelast 3 weeks. No specific trigger. Burning and throbbing, rates 10/10. Radiates to LLE. Worse with standing and sitting, better with laying supine. Has some urinary incontinence but this is chronic per patient. Has loss of sensation in LLE, which is also chronic. No saddle anesthesia. Has tried ibuprofen, lidocaine patch, muscle relaxants at home without improvement. ED COURSE: - Vital Signs: T 36.7C, HR 96-102, RR 16-18, BP 128-159/85-114, 96 RA - Labs: CBC: WBC 7.7, Hb 14.3, Plt 360 CHEM: Na 140, K 5.3, Cl 106, Bicarb 26, BUN 15, Cr 0.71 LFTs: Alk phos 102, ALT 27, AST 36, TBili 0.4 Calcium: 9.3 COAGS: INR 1, PT 11.6 ESR/CRP: 25 (H)/0.26 - EKG: pending - Imaging: CT L spine w/o contrast 04/24/24 IMPRESSION: No acute fracture or traumatic subluxation. Stable postsurgical changes from left L4 hemilaminectomy. Interval decrease in left paraspinal postsurgical collection likely due to postoperative seroma. Incidental stable left adrenal nodule measures 1.2 x 1.8 cm. MR L spine w/o IV contrast 04/24/24 IMPRESSION: 1. No critical spinal canal or neural foraminal stenosis. 2. Redemonstration of loculated fluid collection within the soft tissues posterior to L4-5, within the surgical bed, stable in size and appearance when compared to same day CT lumbar spine but gradually decreased in size compared to multiple prior examinations measuring up to 4.5 x 3.3 x 3.1 cm, possibly representing postoperative seroma (series 4, image 19 and series 6, image 42), although the sterility of this fluid can not be determined by imaging; correlate clinically with infection to exclude the less favored possibility of abscess. Differential diagnosis includes possible pseudomeningocele. The fluid of this cystic region would likely be amenable to image guided percutaneous sampling for laboratory analysis as clinically indicated. 3. 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 - ED Interventions: IV dilaudid 0.5 mg x2, lidocaine patch, Robaxin 1000 mg Past Medical History She has a past medical history of Anxiety, Arthritis, Bipolar disorder, Chronic pain disorder, Depression, HCV (hepatitis C virus) (2013), Herniated lumbar intervertebral disc, Liver disease, Lumbar radiculopathy, chronic, Neuropathic pain, Obesity, and Vision loss. Surgical History She has a past surgical history that includes Cholecystectomy; Hysterectomy; Tonsillectomy; Myringotomy w/ tubes (Bilateral); Dental surgery (Bilateral); Bunionectomy (Bilateral); Colonoscopy; Adenoidectomy; Spinal cord stimulator removal (10/14/2023); Spinal cord stimulator implant (09/23/2023); and Spinal cord stimulator trial w/ laminotomy (08/21/2023). Social History She reports that she has been smoking cigarettes. She started smoking about 33 years ago. She has a16.6 pack-year smoking history. She has never used smokeless tobacco. She reports that she does notcurrently use drugs. She reports that she does not drink alcohol. Family History Family History Problem Relation Name Age of Onset Lung disease Mother COPD Mother Lung disease Father Lung cancer Father Heart disease Father Allergies Penicillins, Diclofenac, Gabapentin, Lyrica [pregabalin], Tylenol [acetaminophen], and Nabumetone Review of Systems Constitutional: Positive for activity change. Negative for fever and unexpected weight change. HENT: Negative. Respiratory: Negative. Cardiovascular: Negative. Gastrointestinal: Negative. Genitourinary: Negative. Musculoskeletal: Positive for back pain, gait problem and myalgias. PHYSICAL EXAM: General: laying in ED gurney, appears uncomfortable, holding on to edges of bed HEENT: facial plethora, PERRL, MMM Skin: WWP Chest: decreased breath sounds, normal respiratory effort, not on supplemental oxygen Cardiac: RRR Abdomen: soft, ND, NT EXT: no peripheral edema, no asymmetry noted MSK: reduced sensation in LLE from anterior thigh to gil, 3-4/strength in LLE, 5/5 strength in RLE Neuro: AOx3, CN2-12 intact Last Recorded Vitals BP 139/85 (BP Location: Left arm, Patient Position: Lying) Pulse 96 Temp 36.6 C (97.8 F) (Oral) Resp 16 Wt 113 kg (250 lb) SpO2 96% Assessment/Plan Assessment & Plan Chronic low back pain with left-sided sciatica, unspecified back pain laterality 49 y.o. F w/PMHx recent L4-L5 MIS [...] admission) SURROGATE DECISION MAKER: Avery (evin ) [phone] Starr Tran MD Cosigned by Ming Love MD at 05/01/2024 2:06 PM EST Associated attestation - Ming Love MD - 05/01/2024 2:06 PM EST I conducted an assessment of the patient, personally acquiring essential components of their medical history and participating in crucial aspects of the physical examination, either directly or by overseeing the resident's execution of these tasks. Subsequently, I meticulously reviewed the documentation provided by the resident and engaged in a comprehensive discussion regarding the patient's condition. I am in concurrence with the medical decision-making outlined in the resident's note. documented in this [facility] Work Phone: [phone]) [phone] Physician Emergency department Note* Benita Atkinson DO - 05/01/2024 2:20 AM EST CC: Back Pain History provided by: Patient Limitations to History: None HPI: Patient is a 49-year-old female with history of chronic back pain who presents with back pain. She states she has a history of chronic back pain and was last seen in the emergency department on for her back pain. She states she went home and has had unbearable back pain since then. She states she is leaking urine intermittently however this is chronic but denies any overt incontinence orsaddle anesthesia. Denies any new falls, trauma, or injuries. She denies any headache, dizziness, vision changes, neck pain, fevers, chills, chest pain, shortness of breath, nausea, vomiting, or abdominal pain. Her last dose of pain medication was earlier yesterday morning. She states she has decreased sensation throughout her left lower extremity which is chronic as well as difficulty lifting left leg off of the bed which she reports is also chronic. She denies history of malignancy, IV drug use, abnormal weight loss. I reviewed MRI of lumbar spine from April 24, 2024 as stated in ED course below. Patient did not have critical spine canal or neural foraminal stenosis at that time. Patient has neurosurgery followup scheduled for 05/05/[address] Woodard. I reviewed spine surgery virtual visit from April 23, 2024 from [facility]. Patient was seen for second opinion regarding lower back pain status post L4-L5 MIS discectomy with neurosurgery at [facility]. At this time patient was given physical therapy referral and follow-up and it was discussed that patient is likely not a surgical candidate for elective surgery. Presumed patient's S2 fracture is contributing to chronic lower back pain. Patient does have documented known fluid collection on MRI which is likely a seroma. External Records Reviewed: I reviewed prior ED visits, Care Everywhere, discharge summaries and outpatient records as appropriate. ? Triage Vitals: T 36.7 C (98.1 F) HR 100 BP (!) 159/120 RR 18 O2 96 % None (Room air) Physical Exam Vitals and nursing note reviewed. Constitutional: General: She is not in acute distress. Appearance: She is obese. HENT: Head: Normocephalic and atraumatic. Mouth/Throat: Mouth: Mucous membranes are moist. Eyes: General: No scleral icterus. Extraocular Movements: Extraocular movements intact. Conjunctiva/sclera: Conjunctivae normal. Pupils: Pupils are equal, round, and reactive to light. Cardiovascular: Rate and Rhythm: Normal rate and regular rhythm. Pulmonary: Effort: Pulmonary effort is normal. No respiratory distress. Breath sounds: Normal breath sounds. Abdominal: General: Abdomen is flat. There is no distension. Palpations: Abdomen is soft. Tenderness: There is no abdominal tenderness. There is no guarding. Musculoskeletal: General: No deformity. Normal range of motion. Cervical back: Normal range of motion and neck supple. No rigidity or tenderness. Comments: Ambulatory with antalgic gait in the left lower extremity, decreased sensation to left lower extremity from anterior thigh to gil, 3 out of 5 strength in left lower extremity with hip flexion, dorsiflexion, plantarflexion which appears chronic, 5 out of 5 strength in right lower extremity and sensation intact, no saddle anesthesia Skin: General: Skin is warm and dry. Findings: No rash. Neurological: General: No focal deficit present. Mental Status: She is alert and oriented to person, place, and time. Mental status is at baseline. Comments: Cranial nerves 2-12 intact. Strength 5/5 to BUE and RLE. Strength is 4/5 to LLE though pain limited. Patient with chronic loss of sensation to LLE (which she reports is unchanged compared to her baseline). Sensation otherwise intact throughout. Psychiatric: Mood and Affect: Mood normal. Behavior: Behavior normal. ? ED Course/Treatment/Medical Decision Making MDM: Patient is a 49-year-old female who presents to the ED with back pain. Vital signs are overall stable, with mild tachycardia rate 102 likely in the setting of pain. Patient is afebrile. The patient is in no respiratory distress, satting well on room air. Due to high ED volume and boarding times, I did not evaluate patient until she was brought back from the waiting room approximately 6 hours after she first checked in. Patient has no focal neurologic deficits that are new on examination. She has known seroma to L4-L5 region, episodes of leaking urine as well as 4 out of 5 strength in left lower extremity and decreased sensation to the LLE compared to the right, but patient reports all these symptoms are chronic. She has no new signs of trauma or midline spinal tenderness to palpation. Shedenies any falls. Labs are overall unremarkable. I have low suspicion for acute spinal pathology such as cord compression, cauda equina, spinal epidural abscess, discitis, or osteomyelitis warrantingfurther imaging at this time. Patient will be given IV analgesics and reevaluated. Patient was medicated with IV dilaudid, robaxin, and lidocaine patch. ED Course: ED Course as of 05/01/24 0641 SatMay 01, 20243 MRI 04/24: IMPRESSION: 1. No critical spinal canal or neural foraminal stenosis. 2. Redemonstration of loculated fluid collection within the soft tissues posterior to L4-5, within the surgical bed, stable in size and appearance when compared to same day CT lumbar spine but gradually decreased in size compared to multiple prior examinations measuring up to 4.5 x 3.3 x 3.1 cm, possibly representing postoperative seroma (series 4, image 19 and series 6, image 42), although the sterility of this fluid can not be determined by imaging; correlate clinically with infection to exclude the less favored possibility of abscess. Differential diagnosis includes possible pseudomeningocele. The fluid of this cystic region would likely be amenable to image guided percutaneous sampling for laboratory analysis as clinically indicated. 3. 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 [SA] 0230 CBC, CMP, coagulation screen within normal limits [SA] 0611 Patient re-evaluated, notes no improvement in pain, given debilitating pain refractory to IV opioids will admit to medicine for pain control, PT, OT, will discuss with admission coordinators [SA] ED Course User Index [SA] Benita Atkinson DO Diagnoses as of 05/01/24 0641 Chronic low back pain with left-sided sciatica, unspecified back pain laterality EKG Interpretation: See ED Course/Below: Independent Interpretation of Studies: I independently interpreted labs/imaging as stated in ED Course or below. Differential diagnoses considered include but are not limited to: See MDM/Below: Social Determinants Limiting Care: None identified The following actions were taken to address these social determinants: Discussion of Management with Other Providers: See MDM/Below: Disposition: Patient was discussed with [facility] who accepted the patient for admission to Medicine service for further management and monitoring. Patient remains stable at this time. DEVIKA De La Fuente, PGY-3 I reviewed the case with the attending ED physician. The attending ED physician agrees with the plan. Patient and/or patient s footwear sales representative was counseled regarding labs, likely diagnosis, and plan.All questions were answered. Disclaimer: This note was dictated by speech recognition. Attempt at proofreading was made to minimize errors. Errors in bill recapitulation clerk may be present. Please call if questions. Procedures ? [employer] last updated 05/01/2024 6:41 AM Benita Atkinson DO Resident 05/01/24 0642 I saw and evaluated the patient. I personally obtained the medrano and critical portions of the historyand physical exam or was physically present for medrano and critical portions performed by the resident/fellow. I reviewed the resident/fellow's documentation and discussed the patient with the resident/f garrick. I agree with the resident/fellow's medical decision making as documented in the note. MD Elke Good MD 05/01/242026 [facility] Work Phone: [phone]) 482-379602-07-2025 Emergency department Note* Benita Atknison DO - 05/01/2024 2:20 AM EST CC: Back Pain History provided by: Patient Limitations to History: None HPI: Patient is a 49-year-old female with history of chronic back pain who presents with back pain. She states she has a history of chronic back pain and was last seen in the emergency department on for her back pain. She states she went home and has had unbearable back pain since then. She states she is leaking urine intermittently however this is chronic but denies any overt incontinence orsaddle anesthesia. Denies any new falls, trauma, or injuries. She denies any headache, dizziness, vision changes, neck pain, fevers, chills, chest pain, shortness of breath, nausea, vomiting, or abdominal pain. Her last dose of pain medication was earlier yesterday morning. She states she has decreased sensation throughout her left lower extremity which is chronic as well as difficulty lifting left leg off of the bed which she reports is also chronic. She denies history of malignancy, IV drug use, abnormal weight loss. I reviewed MRI of lumbar spine from April 24, 2024 as stated in ED course below. Patient did not have critical spine canal or neural foraminal stenosis at that time. Patient has neurosurgery followup scheduled for 05/05/[address] Woodard. I reviewed spine surgery virtual visit from April 23, 2024 from [facility]. Patient was seen for second opinion regarding lower back pain status post L4-L5 MIS discectomy with neurosurgery at [facility]. At this time patient was given physical therapy referral and follow-up and it was discussed that patient is likely not a surgical candidate for elective surgery. Presumed patient's S2 fracture is contributing to chronic lower back pain. Patient does have documented known fluid collection on MRI which is likely a seroma. External Records Reviewed: I reviewed prior ED visits, Care Everywhere, discharge summaries and outpatient records as appropriate. ? Triage Vitals: T 36.7 C (98.1 F) HR 100 BP (!) 159/120 RR 18 O2 96 % None (Room air) Physical Exam Vitals and nursing note reviewed. Constitutional: General: She is not in acute distress. Appearance: She is obese. HENT: Head: Normocephalic and atraumatic. Mouth/Throat: Mouth: Mucous membranes are moist. Eyes: General: No scleral icterus. Extraocular Movements: Extraocular movements intact. Conjunctiva/sclera: Conjunctivae normal. Pupils: Pupils are equal, round, and reactive to light. Cardiovascular: Rate and Rhythm: Normal rate and regular rhythm. Pulmonary: Effort: Pulmonary effort is normal. No respiratory distress. Breath sounds: Normal breath sounds. Abdominal: General: Abdomen is flat. There is no distension. Palpations: Abdomen is soft. Tenderness: There is no abdominal tenderness. There is no guarding. Musculoskeletal: General: No deformity. Normal range of motion. Cervical back: Normal range of motion and neck supple. No rigidity or tenderness. Comments: Ambulatory with antalgic gait in the left lower extremity, decreased sensation to left lower extremity from anterior thigh to gil, 3 out of 5 strength in left lower extremity with hip flexion, dorsiflexion, plantarflexion which appears chronic, 5 out of 5 strength in right lower extremity and sensation intact, no saddle anesthesia Skin: General: Skin is warm and dry. Findings: No rash. Neurological: General: No focal deficit present. Mental Status: She is alert and oriented to person, place, and time. Mental status is at baseline. Comments: Cranial nerves 2-12 intact. Strength 5/5 to BUE and RLE. Strength is 4/5 to LLE though pain limited. Patient with chronic loss of sensation to LLE (which she reports is unchanged compared to her baseline). Sensation otherwise intact throughout. Psychiatric: Mood and Affect: Mood normal. Behavior: Behavior normal. ? ED Course/Treatment/Medical Decision Making MDM: Patient is a 49-year-old female who presents to the ED with back pain. Vital signs are overall stable, with mild tachycardia rate 102 likely in the setting of pain. Patient is afebrile. The patient is in no respiratory distress, satting well on room air. Due to high ED volume and boarding times, I did not evaluate patient until she was brought back from the waiting room approximately 6 hours after she first checked in. Patient has no focal neurologic deficits that are new on examination. She has known seroma to L4-L5 region, episodes of leaking urine as well as 4 out of 5 strength in left lower extremity and decreased sensation to the LLE compared to the right, but patient reports all these symptoms are chronic. She has no new signs of trauma or midline spinal tenderness to palpation. Shedenies any falls. Labs are overall unremarkable. I have low suspicion for acute spinal pathology such as cord compression, cauda equina, spinal epidural abscess, discitis, or osteomyelitis warrantingfurther imaging at this time. Patient will be given IV analgesics and reevaluated. Patient was medicated with IV dilaudid, robaxin, and lidocaine patch. ED Course: ED Course as of 05/01/24 06SatMay 01, [id number] MRI 04/24: IMPRESSION: 1. No critical spinal canal or neural foraminal stenosis. 2. Redemonstration of loculated fluid collection within the soft tissues posterior to L4-5, within the surgical bed, stable in size and appearance when compared to same day CT lumbar spine but gradually decreased in size compared to multiple prior examinations measuring up to 4.5 x 3.3 x 3.1 cm, possibly representing postoperative seroma (series 4, image 19 and series 6, image 42), although the sterility of this fluid can not be determined by imaging; correlate clinically with infection to exclude the less favored possibility of abscess. Differential diagnosis includes possible pseudomeningocele. The fluid of this cystic region would likely be amenable to image guided percutaneous sampling for laboratory analysis as clinically indicated. 3. 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 [SA] 0230 CBC, CMP, coagulation screen within normal limits [SA] 0611 Patient re-evaluated, notes no improvement in pain, given debilitating pain refractory to IV opioids will admit to medicine for pain control, PT, OT, will discuss with admission coordinators [SA] ED Course User Index [SA] Benita Atkinson DO Diagnoses as of 05/01/24 0641 Chronic low back pain with left-sided sciatica, unspecified back pain laterality EKG Interpretation: See ED Course/Below: Independent Interpretation of Studies: I independently interpreted labs/imaging as stated in ED Course or below. Differential diagnoses considered include but are not limited to: See MDM/Below: Social Determinants Limiting Care: None identified The following actions were taken to address these social determinants: Discussion of Management with Other Providers: See MDM/Below: Disposition: Patient was discussed with [facility] who accepted the patient for admission to Medicine service for further management and monitoring. Patient remains stable at this time. DEVIKA De La Fuente, PGY-3 I reviewed the case with the attending ED physician. The attending ED physician agrees with the plan. Patient and/or patient s footwear sales representative was counseled regarding labs, likely diagnosis, and plan.All questions were answered. Disclaimer: This note was dictated by speech recognition. Attempt at proofreading was made to minimize errors. Errors in bill recapitulation clerk may be present. Please call if questions. Procedures ? [employer] [facility] last updated 05/01/2024 6:41 AM Benita Atkinson DO Resident 05/01/24 0642 I saw and evaluated the patient. I personally obtained the medrano and critical portions of the historyand physical exam or was physically present for medrano and critical portions performed by the resident/fellow. I reviewed the resident/fellow's documentation and discussed the patient with the resident/f garrick. I agree with the resident/fellow's medical decision making as documented in the note. MD Elke Good MD 05/01/242026 * Terri Jacobs RN - 04/30/2024 8:24 PM EST Patient presents to the ED for back pain. Patient has herniation of discs L4 and L5. Patient is supposed to schedule a fusion this upcoming week. Patient states the pain is making her nauseous documented in this [facility] Work Phone: 1(354) 433-952902-06-2025 Emergency department Triage note* Terri Jacobs RN - 04/30/2024 8:24 PM EST Patient presents to the ED for back pain. Patient has herniation of discs L4 and L5. Patient is supposed to schedule a fusion this upcoming week. Patient states the pain is making her nauseous [facility]02-04-2025 Hospital Discharge instructions Patient Education 04/28/2024 13:40:09 Acute Back Pain, Adult Acute Back Pain, [...] home: Managing pain, stiffness, and swelling Take hknp-dzt-totnyet and prescription medicines only as told by [...] each day. 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 Take njpw-pbd-cqnbuji and prescription medicines only as told by your health care provider, and apply heat or ice as told. This information is not intended to replace advice given to you by your health care provider. Make sure you discuss any questions you have with your health care provider. Document Revised: 06/02/2021 Document Reviewed: 06/02/2021 [employer] Patient Education 2023 [employer]. Follow Up Care 04/28/2024 12:46:44 With:MARLEE AMARI Address: [address] [place] [address] Business (1) When:05/01/2024 13:39:51 Comments:Call to schedule a follow-up appointment with your back surgeon and primary care provider for further management of care. Return to the ED with any new or worsening symptoms. [facility] 02-04-2025 Evaluation + Plan noteExtracted from:Title: ED NoteAuthor:Matthew MILES, Zhane EnriquezDate:04/28/24 Acute on chronic low back pa in (M54.50: Low back pain, unspecified) Other chronic pain (G89.29: Other chronic pain) Orders: ketorolac, 30 mg = 1 mL, Injection, IntraMuscular, Once, Stop date 04/28/24 13:34:00 EST, STAT, Start date 04/28/24 13:34:00 EST, 04/28/24 13:34:00 EST lidocaine topical, 1 patch(es), Topical, Daily, 7 patch(es), Refill(s) 0, apply 12 hours on and 12 hours off daily, [id number], 160, cm, 04/28/24 12:58:00 EST, Height/Length Dosing, 122.1, kg, 04/28/24 12:58:00 EST, Weight Dosing predniSONE, 10 mg = 1 tab(s), Oral, As Directed, Take 3 tabs by mouth daily x3 days, then 2 tabs daily x3 days, then 1 tab daily x3 days., # 18 tab(s), Refills(s) 0, Pharmacy: [id number], 160, cm, 04/28/24 12:58:00 EST, Height/Length Dosing, 122.1, kg, 02... triamcinolone, 40 mg = 1 mL, Susp-Inj, IntraMuscular, Once, Stop date 04/28/24 13:34:00 EST, STAT, Start date 04/28/24 13:34:00 EST, 04/28/24 13:34:00 EST Future Scheduled Tests Laboratory* TSH With T4fr Reflex 07/17/23 * Urinalysis with Micro 07/17/23 * Lipid Panel 07/17/23 * Drug Screen Urine 07/17/23 Radiology* MA Mamm Screen w/CAD if perf and 3D Kenan 07/17/23 [facility] 02-04-2025 NoteED Patient Education Note Orthopedics Acute Back [...] Managing pain, stiffness, and swelling ??? Take zwvx-nwr-yinwpvw and prescription medicines only as told by [...] day. ??? 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 ??? Y (more content not included)...[facility]01-30-2025 Emergency department Triage note* Yue Mcgarry RN - 04/23/2024 8:02 PM EST Enters ED c/o chronic back pain rated 8/10 unrelieved by prescribed Naproxen. Baseline history of microdiscectomy at the level of the L4-L5 on 2023 [facility] Work Phone: 1(771) 719-381901-30-2025 Emergency department Note* Yue Mcgarry RN - 04/23/2024 8:02 PM EST Enters ED c/o chronic back pain rated 8/10 unrelieved by prescribed Naproxen. Baseline history of microdiscectomy at the level of the L4-L5 on 2023 [facility] Work Phone: 1(968) 760-850601-30-2025 NoteHNO ID: [id number] Author: TERRI VERGARA PA-C Service: ? Author Type: Physician Herbicide Sprayer Type: Progress Notes Filed: 04/24/2024 07:32 Note Text: SPINE SURGERY OUTPATIENT CONSULT This is a virtual visit using discoapiom Video Visit. It required patient-provider interaction for the medical decision making as documented below. I have communicated my name and active licensure. The patient's identity and physical location were verified at the time of this visit. 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 SERVICE DATE: 04/23/2024 PCP: No primary care provider on file. REFERRING PROVIDER: Vinnie Post [facility] [id number] Consult requested for an opinion regarding the evaluation and treatment of LBP. My final impression and recommendations will be communicated back to the requesting physician by way of the shared medical record or letter via [place] mail. SUBJECTIVE Jerad Tracy is a 49 year old female CHIEF COMPLAINT: low back pain HISTORY OF PRESENT ILLNESS PRECIPITATING EVENT: None DURATION OF SYMPTOMS: Greater Than 6 Weeks Seen virtually. Seeking a second opinion. Hx of left leg pain, had surgery at in January. Left leg pain resolved but she's now having severe low back pain. She had a fall and was diagnosed with a nondisplaced S2 fracture. Pain has not improved. Saw her surgeon in February and he referred ehr back to functional pain/neurosurgery. She describes low back pain. Worse with standing and walking. Better with rest and laying supine. No radiation into the legs. No bowel or bladder changes. She states her incision healed well without any complications. PREVIOUS SPINAL SURGERY: : 02/06/2024 - Lumbar - [facility] - DISCECTOMY POSTERIOR LUMBAR LEFT L4-5 MINIMALLY INVASIVE (L) Dr Judah Woodard There is no problem list on file for this patient. No past medical history on file. No past surgical history on file. No family history on file. ALLERGIES Allergen Reactions Acetaminophen Other: See Comments Liver failure. Gabapentin Other: See Comments Leg swelling Lyrica [Pregabalin] Unknown Hydrocodone Hives, Rash MEDICATIONS: diclofenac (VOLTAREN ARTHRITIS PAIN) 1 % topical gel Apply 4 g to affected area four times daily. REVIEW OF SYSTEMS: GENERAL: No weight loss or malaise MUSCULOSKELETAL: see HPI NEURO: No history of headaches, syncope, paralysis, seizures or tremors Patient Entered Questionnaires 04/17/2024 Spine Questions Pain Location: Lower back Pain Duration: 1 to 5 years Pain over last 6 months: Every day or nearly every day in the past 6 months Symptoms from neck/cervical spine: Yes Employment Status: Disabled due to back pain, permanently or temporarily Off work 1 month or more due to back/neck pain: Yes Applied for/receive disability/WC due to low back/neck pain No Involved in law suit/legal claim: No 04/17/2024 Neck Questionnaires Benzel Modified CRISTIAN Score 14 (Moderate Myelopathy Symptoms) PROMIS Score Percentiles 04/17/2024 Physical Health Physical Function Percentile 1 Sleep Percentile 10 Fatigue Percentile 1 Pain Interference Percentile 1 04/17/2024 PROMIS SOCIAL ROLE SCORE Social Role Satisfaction Percentile 2 04/02/2024 PROMIS Global Health Scale Physical Health Percentile 1 Mental Health Percentile 5 Percentiles provide an indication of how the patient's score ranks in relation to the general population. Higher percentile rankings indicate better function/quality of life. 50th percentile is the average of the general population and indicates half of respondents had a worse score. Descriptive Summary for PROMIS Physical Function T-score = 28 (Percentile 1) Unable - Do 2 hours of physical labor Unable - Walk at a normal speed. Depression Screenin04/02/2024 04/17/2024 PHQ-9 Score 13 7 04/02/2024 04/17/2024 PHQ-9 Self-harm Question Question 9 Not at all Not at all PHQ-9 Self-Harm (Item 9) response options: 0 Not at all 1 Several days 2 More than half the days 3 Nearly every day PHQ-9 Levels: 0-4 No to mild depression 5-9 Mild depression 10-14 Moderate depression 15-19 Moderately severe depression 20-27 Severe depression OBJECTIVE: PHYSICAL EXAM There were no vitals taken for this visit. Virtual visit NEURO TESTS: None DATA REVIEW [facility] and Imaging and outside records independently reviewed ASSESSMENT/PLAN No diagnosis found. Seen virtually. Seeking a second opinion regarding low back pain SP L4-[address] So at . She states her leg pain resolved with surgery but she's had severe low back pain. Worse than what it was prior to surgery. She had a fall in early February and was diagnosed with a non displaced S2 fracture. Low back p (more content not included)...[facility] 04-23-2024 History of Present illness Narrative* Terri VergaraGINGER - 04/23/2024 7:43 AM EST Images from the original note were not included. SPINE SURGERY OUTPATIENT CONSULT This is a virtual visit using discoapiom Video Visit. It required patient- provider interaction for the medical decision making as documented below. I have communicated my name and active licensure. The patient's identity and physical location wereverified at the time of this visit. Either the patient or their legal footwear sales representative has been informed of the risks and benefits of -- and alternatives to -- treatment through a remote evaluation andconsents to proceed with the evaluation remotely. SERVICE DATE: 04/23/2024 PCP: No primary care provider on file. REFERRING PROVIDER: Vinnie Riggs [address] [facility] [id number] Consult requested for an opinion regarding the evaluation and treatment of LBP. My final impressionand recommendations will be communicated back to the requesting physician by way of the shared medical record or letter via US mail. SUBJECTIVE Jerad Tracy is a 49 year old female CHIEF COMPLAINT: low back pain HISTORY OF PRESENT ILLNESS PRECIPITATING EVENT: None DURATION OF SYMPTOMS: Greater Than 6 Weeks Seen virtually. Seeking a second opinion. Hx of left leg pain, had surgery at in January. Left leg pain resolved but she's now having severe low back pain. She had a fall and was diagnosed with anondisplaced S2 fracture. Pain has not improved. Saw her surgeon in February and he referred ehr back to functional pain/neurosurgery. She describes low back pain. Worse with standing and walking. Better with rest and laying supine. No radiation into the legs. No bowel or bladder changes. She states her incision healed well without any complications. PREVIOUS SPINAL SURGERY: : 02/06/2024 - Lumbar - - DISCECTOMY POSTERIOR LUMBAR LEFT L4-5 MINIMALLY INVASIVE (L) Dr So Ray There is no problem list on file for this patient. No past medical history on file. No past surgical history on file. No family history on file. ALLERGIES Allergen Reactions Acetaminophen Other: See Comments Liver failure. Gabapentin Other: See Comments Leg swelling Lyrica [Pregabalin] Unknown Hydrocodone Hives, Rash MEDICATIONS: diclofenac (VOLTAREN ARTHRITIS PAIN) 1 % topical gel Apply 4 g to affected area four times daily. REVIEW OF SYSTEMS: GENERAL: No weight loss or malaise MUSCULOSKELETAL: see HPI NEURO: No history of headaches, syncope, paralysis, seizures or tremors Patient Entered Questionnaires 04/17/2024 Spine Questions Pain Location: Lower back Pain Duration: 1 to 5 years Pain over last 6 months: Every day or nearly every day in the past 6 months Symptoms from neck/cervical spine: Yes Employment Status: Disabled due to back pain, permanently or temporarily Off work 1 month or more due to back/neck pain: Yes Applied for/receive disability/WC due to low back/neck pain No Involved in law suit/legal claim: No 04/17/2024 Neck Questionnaires Benzel Modified CRISTIAN Score 14 (Moderate Myelopathy Symptoms) PROMIS Score Percentiles 04/17/2024 Physical Health Physical Function Percentile 1 Sleep Percentile 10 Fatigue Percentile 1 Pain Interference Percentile 1 04/17/2024 PROMIS SOCIAL ROLE SCORE Social Role Satisfaction Percentile 2 04/02/2024 PROMIS Global Health Scale Physical Health Percentile 1 Mental Health Percentile 5 Percentiles provide an indication of how the patient's score ranks in relation to the general population. Higher percentile rankings indicate better function/quality of life. 50th percentile is the average of the general population and indicates half of respondents had a worse score. Descriptive Summary for PROMIS Physical Function T-score = 28 (Percentile 1) Unable - Do 2 hours of physical labor Unable - Walk at a normal speed. Depression Screenin04/02/2024 04/17/2024 PHQ-9 Score 13 7 04/02/2024 04/17/2024 PHQ-9 Self-harm Question Question 9 Not at all Not at all PHQ-9 Self-Harm (Item 9) response options: 0 Not at all 1 Several days 2 More than half the days 3 Nearly every day PHQ-9 Levels: 0-4 No to mild depression 5-9 Mild depression 10-14 Moderate depression 15-19 Moderately severe depression 20-27 Severe depression OBJECTIVE: PHYSICAL EXAM There were no vitals taken for this visit. Virtual visit NEURO TESTS: None DATA REVIEW [facility] and Imaging and outside records independently reviewed ASSESSMENT/PLAN No diagnosis found. Seen virtually. Seeking a second opinion regarding low back pain SP L4-[address] So at . She states her leg pain resolved with surgery but she's had severe low back pain. Worse than what it was prior to surgery. She had a fall in early February and was diagnosed with a non displaced S2 fracture. Low back pain is mechanical and not improving. Several ER visits regarding this. Multiple CT scans, recent MRI and lab work. We discussed how S2 fracture can impact her low back pain. She is describing the pain as above the belt-line. Fluid collection on MRI which is likely a seroma but will trend lab work to rule out an infection. Last set of labs 03/30/23 were overall stable. Lumbar MRI with left lateral recess narrowing of L4-5 but she denies any leg pain. Mild spondylolisthesis. Will obtain lumbar flex/ext X-Ray to rule out new mechanical spondy as contributing to her low back pain. We had a long discussion. Given her current BMI she would not be a surgical candidate at [facility] for elective surgery if a mechanical spondylolisthesis was found. We discussed S2 fracture and that rest would be recommended followed by physical therapy after 6 weeks. I would recommend she follow back with her surgeon. Labs: CBC + diff, Sed rate, CRP Imaging: flex/ext X-ray Follow up with her surgeon The majority of the visit was spent counseling and/or coordinating care for the patient. Total faceto face time was 30 minutes. SIGNATURE: Terri Vergara PA-C PATIENT NAME: Jerad Tracy DATE: April 23, 2024 TIME: 7:44 AM PAGER: [facility] Discharge instructions Patient Education 04/19/2024 13:41:14 Acute Back Pain, Adult Acute Back Pain, [...] home: Managing pain, stiffness, and swelling Take gpfu-vxz-ygvebbr and prescription medicines only as told by [...] each day. 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 Take vygg-zeh-ulqturc and prescription medicines only as told by your health care provider, and apply heat or ice as told. This information is not intended to replace advice given to you by your health care provider. Make sure you discuss any questions you have with your health care provider. Document Revised: 06/02/2021 Document Reviewed: 06/02/2021 [email or web address] Patient Education 2023 [employer]. Follow Up Care 04/19/2024 12:10:25 With:MARLEE FITZPATRICK Address: [address] [place], [place] [id number]- Business (1) When:04/22/2024 13:38:38 Comments:Call the office of your primary care [...] breath, or any new or worsening symptoms. [facility] 01-26-2025 NoteED Patient Education Note Orthopedics Acute Back [...] Managing pain, stiffness, and swelling ??? Take nwup-dts-wjyupdm and prescription medicines only as told by [...] day. ??? 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 ??? Y (more content not included)...[facility]01-26-2025 Note Progress Note-Nurse leaves with [facility]01-26-2025 Evaluation + Plan note Extracted from:Title:ED NoteAuthor:Nikhil Tubbs DOAdrienDate:04/19/24 Back pain (M54.9: Dorsalgia, unspecified) Ordered: acetaminophen-oxycodone, 1 tab(s), Oral, q6hr Pain 8-10, 8 tab(s), Refill(s) 0, [id number], cm, 04/19/24 12:20:00 EST, Height/Length Dosing, 122, kg, 04/19/24 12:20:00 EST, Weight Dosing Orders: HYDROmorphone, 0.5 mg = 0.5 mL, Injection, IntraMuscular, Once, Stop date 04/19/24 13:36:00 EST, STAT, Start date 04/19/24 13:36:00 EST, 04/19/24 13:36:00 EST Future Scheduled Tests Laboratory* TSH With T4fr Reflex 07/17/23 * Urinalysis with Micro 07/17/23 * Lipid Panel 07/17/23 * Drug Screen Urine 07/17/23 Radiology* MA Mamm Screen w/CAD if perf and 3D Kenan 07/17/23 [facility] 01-20-2025 NoteHNO ID: [id number] Author: HALIMA HUGHES PA-C Service: ? Author Type: Physician Herbicide Sprayer Type: Progress Notes Filed: 04/13/2024 20:44 Note Text: Per Triage: Jerad Tracy is a 49 year old female that requests evaluation of spine. Per review, they have symptoms of lower back pain, L>R leg pain. Numbness and weakness in legs. Difficulty walking - uses a walker BMI: 45 Request: 1st available Referring provider: [facility] Patient out of state: no 2nd opinion: yes, not offered surgery Prior spine surgery: yes 02/06/2024 - Lumbar - [facility] - DISCECTOMY POSTERIOR LUMBAR LEFT L4-5 MINIMALLY INVASIVE (L) Dr Judah Woodard 09/2023 - Pain stim inserted AND removed same month due to blood clots - . CMT: PT Injections IBU Voltaren gel Zanaflex Cyclobenzaprine Naproxen Robaxin Mobic Lido patches Medrol aydee Heat Percocet in the past Methadone Studies (Reports unless indicated) CT lumbar spine report 03/28/24: ALIGNMENT: Normal. VERTEBRAE: No acute fracture. Left L4 hemilaminectomy noted. SPINAL CANAL: Moderate degenerative disc changes and facet arthropathy at L4-5 and L5-S1. T12-L1: No significant spinal canal or neural foraminal stenosis. L1-2: No significant spinal canal or neural foraminal stenosis. L2-3: No significant spinal canal or neural foraminal stenosis. L3-4: No significant spinal canal or neural foraminal stenosis. L4-5: Postsurgical changes, similar to prior. A focus of gas in the left hemilaminectomy site is decreasing in size and likely postprocedural. There is a posterior disc osteophyte complex resulting in similar degree of spinal canal stenosis. Mild bilateral neural foraminal stenosis is stable. L5-S1: No significant spinal canal stenosis. Mild right neural foraminal stenosis. PREVERTEBRAL SOFT TISSUES: No prevertebral soft tissue swelling. OTHER FINDINGS: Mild sacroiliac osteoarthrosis. A fluid collection in the posterior paraspinal soft tissues, to the left of midline at the L3 through L5 levels has decreased in size, currently 3.5 x 3.4 x 3 x 4.5 cm, previously approximately 5 x 4 x 7 cm. Disposition: Based on triage, recommend patient be scheduled with surgical KENNEDI for eval. No MRI lumbar post-op. Unsure if surgical. BMI over 40 May also benefit establishing care with center for pain recovery provider Spine Xrays prior to appt: yes Please make sure patient imaging is available for review [facility]01-20-[facility]25 History of Present illness Narrative* Halima Hughes PA-C - 04/13/2024 8:33 PM EST Per Triage: Jerad Tracy is a 49 year old female that requests evaluation of spine. Per review, they have symptoms of lower back pain, L>R leg pain. Numbness and weakness in legs. Difficulty walking - uses a walker BMI: 45 Request: 1st available Referring provider: [facility] Patient out of state: no 2nd opinion: yes, not offered surgery Prior spine surgery: yes 02/06/2024 - Lumbar - [facility] - DISCECTOMY POSTERIOR LUMBAR LEFT L4-5 MINIMALLY INVASIVE (L) Dr Lucero 09/2023 - Pain stim inserted & removed same month due to blood clots - [facility]. CMT: PT Injections IBU Voltaren gel Zanaflex Cyclobenzaprine Naproxen Robaxin Mobic Lido patches Medrol aydee Heat Percocet in the past Methadone Studies (Reports unless indicated) CT lumbar spine report 03/28/24: ALIGNMENT: Normal. VERTEBRAE: No acute fracture. Left L4 hemilaminectomy noted. SPINAL CANAL: Moderate degenerative disc changes and facet arthropathy at L4-5 and L5-S1. T12-L1: No significant spinal canal or neural foraminal stenosis. L1-2: No significant spinal canal or neural foraminal stenosis. L2-3: No significant spinal canal or neural foraminal stenosis. L3-4: No significant spinal canal or neural foraminal stenosis. L4-5: Postsurgical changes, similar to prior. A focus of gas in the left hemilaminectomy site is decreasing in size and likely postprocedural. There is a posterior disc osteophyte complex resulting in similar degree of spinal canal stenosis. Mild bilateral neural foraminal stenosis is stable. L5-S1: No significant spinal canal stenosis. Mild right neural foraminal stenosis. PREVERTEBRAL SOFT TISSUES: No prevertebral soft tissue swelling. OTHER FINDINGS: Mild sacroiliac osteoarthrosis. A fluid collection in the posterior paraspinal soft tissues, to the left of midline at the L3 through L5 levels has decreased in size, currently 3.5 x 3.4 x 3 x 4.5 cm, previously approximately 5 x 4 x 7 cm. Disposition: Based on triage, recommend patient be scheduled with surgical KENNEDI for eval. No MRI lumbar post-op. Unsure if surgical. BMI over 40 May also benefit establishing care with center for pain recovery provider Spine Xrays prior to appt: yes Please make sure patient imaging is available for review Halima Hughes PA-C * Alen West 04/08/2024 10:57 AM EST Patient name: Jerad Tracy Are you being referred by a [facility] Spine Health Provider or Pain Management Provider at [facility]? No If answer is YES please schedule directly with surgeon, triage does not need to be completed. Is this a self-referral No If not, who is the Referring Provider [facility] Is this a 2nd opinion from another spine surgeon? Yes Were you offered surgery? No MRI/CT/myelogram within 12 months? Yes If NO , please refer to medical spine or PCP to complete above imaging, triage does not need to becompleted If YES, please ask for the name/address of the facility where the MRI/CT/myelogram was completed: [facility] [place] [address] MRI/CT/myelogram viewable in Epic: Yes If not, please provide [phone] to fax in imaging reports for review. Also, please inform patient to hand carry imaging disc to appointment. XR (spine) within 12 months: Yes If YES, please ask for the name/address of the facility where the XR was completed: [place] [address] Dr. Garcia's patients: Have you had previous EMG/Nerve Conduction Study, Ultrasound, or MRI for thesesame symptoms? If YES, please ask for the name/address of the facility where they were completed: Requested provider (First and Last name): 1st Are you interested in a virtual visit if offered? No 1. Where are you having symptoms related to this visit? Lb/pelvis/legs/feet - l worse then r - numbness & weakness in legs/feet - pt uses a walker - adl slower - pain is throbbing & burning - laying on r side most comfortable - laying flat on back& riding in car worse positions Back pain Yes Leg pain Yes Arm pain No Neck pain No 2. Are you having any of the following symptoms: Difficulty walking Yes Numbness Yes Weakness Yes Trouble using your hands? No 3. Have you had any injections or physical therapy in the last 12 months? Yes If YES then please ask for the name/address of the facility where the injections and/or physical therapy was completed [facility] [place] [address] [place] [address] Have you tried any other kinds of non-surgical treatments in the last 12 months? (For example: NSAIDS, muscle relaxants, analgesics, oral steroids, Chiropractor, Acupuncture): allergies to lyrics & gabapentin; ibuprofen, voltaren gel, zanaflex, cyclobenzoprene, naproxyn, robaxin, meloxicam, lido patches; mdp x2, heat 4. Are you currently taking daily prescribed narcotic medications for your current symptoms (For example Oxycodone, Hydrocodone, Tramadol, Morphine, Other)? Yes methadone - was on percocet prior 5. Have you had previous spinal surgery for this same symptoms? Yes If YES please ask for the name of facility/address of where the surgery was completed: 01/2024 - Lumbar - [facility]; 09/2023 - Pain stim inserted & removed same month due to blood clots - . Additional Comments [phone] [facility] Discharge instructions Patient Education 04/13/2024 15:17:05 Knee Effusion, Tpdl-ar-Rulo Knee Effusion Knee effusion means that you have extra fluid in your knee. This can cause pain and swelling. Your knee may be more difficult to bend and move. Common causes of knee effusion are: Arthritis. Infection. Injury. Autoimmune disease. This means that your body's defense system (immune system) mistakenly attacks healthy body tissues. Follow these instructions at home: If you have a brace or an immobilizer: Wear it as told by your doctor. Take it off only as told by your doctor. Check the skin around it every day. Tell your doctor if you see problems. Loosen the brace or immobilizer if your toes: ?Tingle. ?Become numb. ?Turn cold and blue. Keep the brace or immobilizer clean. If the brace or immobilizer is not waterproof: ?Do not let it get wet. ?Cover it with a watertight covering when you take a bath or shower. Managing pain, stiffness, and swelling If told, put ice on the affected area. To do this: ?If you have a removable brace or immobilizer, take it off as told by your [...] of damage to the area. Move your toes often. Raise your knee above the level of your heart while you are sitting or lying down. Activity Rest as told by your doctor. Use crutches to support your body weight. Do not use your injured leg to support your body weight until your doctor says that you can. Do exercises as told by your doctor. General instructions Take qzja-gvp-qwrkewn and prescription medicines only as told by your doctor. Do not smoke or use any products that contain nicotine or tobacco. If you need help quitting, ask your doctor. Wear an elastic bandage or a wrap that puts pressure on your knee (compression wrap) as told by your doctor. Keep all follow-up visits. Contact a doctor if: You continue to have pain in your knee. You have a fever or chills. Get help right away if: You have swelling or redness in your knee that gets worse or does not get better. You have very bad pain in your knee. Summary Knee effusion is when you have extra fluid in your knee. This can cause pain and swelling and can make it hard to bend and move your knee. Take sawd-atv-volxwrs and prescription medicines only as told by your doctor. If you have a brace or an immobilizer, wear it as told by your doctor. This information is not intended to replace advice given to you by your health care provider. Make sure you discuss any questions you have with your health care provider. Document Revised: 11/09/2020 Document Reviewed: 11/09/2020 [employer] Patient Education 2023 [employer]. 04/13/2024 15:17:05 Knee Sprain, Adult Knee Sprain, Adult A [...] sitting or lying down. General instructions Take rqfs-zxx-pqjzspl and prescription medicines only as told by [...] provider. Document Revised: 09/03/2022 Document Reviewed: 09/03/2022 [employer] Patient Education 2023 [employer] 04/13/2024 15:17:05 Ankle Sprain Ankle Sprain An ankle sprain is a stretch or tear in a ligament in the ankle. Ligaments are tissues that connectbones to each other. The two most common types of ankle sprains are: Inversion sprain. This happens when the foot turns inward and the ankle rolls outward. It affects the ligament on the outside of the foot (lateral ligament). Eversion sprain. This happens when the foot turns outward and the ankle rolls inward. It affects the ligament on the inner side of the foot (medial ligament). What are the causes? An ankle sprain is often caused by rolling or twisting the ankle by accident. What increases the risk? You are more likely to get an ankle sprain if you play sports. What are the signs or symptoms? Symptoms of an ankle sprain include: Pain in your ankle. Swelling. Bruising. Bruises may form right after you sprain your ankle or 1 2 days later. Trouble standing or walking. This includes trouble turning or changing directions. How is this diagnosed? An ankle sprain is diagnosed with a physical exam. Your health care provider will press on parts ofyour foot and ankle and try to move them in certain ways. You may also have X-rays taken. These may be done to see how severe the sprain is and to check for broken bones. How is this treated? An ankle sprain may be treated with: A brace or splint. This is used to keep the ankle from moving until it heals. An elastic bandage (dressing). This is used to support the ankle. Crutches. Pain medicine. Surgery. This may be needed if the sprain is severe. Physical therapy. This may help to improve the range of motion in the ankle. Follow these instructions at home: If you have a removable brace or a splint: Wear the brace or splint as told by your provider. Remove it only as told by your provider. Check the skin around the brace or splint every day. Tell your provider about any concerns. Loosen the brace or splint if your toes tingle, become numb, or turn cold and blue. Keep the brace or splint clean. If the brace or splint is not waterproof: ?Do not let it get wet. ?Cover it with a watertight covering when you take a bath or a shower. If you have an elastic dressing: Take the dressing off to shower or bathe. If the dressing feels too tight, adjust it to make it more comfortable. Loosen the dressing if your foot tingles, becomes numb, or turns cold and blue. Managing pain, stiffness, and swelling If told, put ice on the affected area. ?If you have a removable brace or splint, remove it as told by your provider. ?Put ice in a plastic bag. ?Place a towel between your skin and the bag. ?Leave the ice on for 20 minutes, 2 3 times a day. ?Remove the ice if your skin turns bright red. This is very important. If you cannot feel pain, heat, or cold, you have a greater risk of damage to the area. If your skin turns bright red, remove the ice right away to prevent skin damage. The risk of damageis higher if you cannot feel pain, heat, or cold. Move your toes often to reduce stiffness and swelling. For 2 3 days, raise (elevate) your ankle above the level of your heart while you are sitting or lying down. General instructions Take nact-kqv-iqfibbj and prescription medicines only as told by your provider. Do not use any products that contain nicotine or tobacco. These products include cigarettes, chewing tobacco, and vaping devices, such as e-cigarettes. If you need help quitting, ask your provider. Rest your ankle. Do not use your ankle to support your body weight until your provider says that you can. Use crutches as told by your provider. Ask your provider when it is safe to drive if you have a brace or splint on your ankle. Contact a health care provider if: You have bruising or swelling that get worse all of a sudden. Your pain does not get better with medicine. Get help right away if: Your foot or toes become numb or blue. You have severe pain that gets worse. This information is not intended to replace advice given to you by your health care provider. Make sure you discuss any questions you have with your health care provider. Document Revised: 12/12/2022 Document Reviewed: 12/12/2022 [employer] Patient Education 2023 [employer]. Follow Up Care 04/13/2024 14:08:12 With:MARLEE FITZPATRICK Address: [address] [place] [address] Business (1) When:04/16/2024 15:13:43 Comments:Call for diagnosis based follow up [facility] 01-20-2025 NoteED Patient Education Note Orthopedics Knee Effusion Knee effusion means that you have extra fluid in your knee. This can cause pain and swelling. Your knee may be more difficult to bend and move. Common causes of knee effusion are: ??? Arthritis. ??? Infection. ??? Injury. ??? Autoimmune disease. This means that your body's defense system (immune system) mistakenly attacks healthy body tissues. Follow these instructions at home: If you have a brace or an immobilizer: ??? Wear it as told by your doctor. Take it off only as told by your doctor. ??? Check the skin around it every day. Tell your doctor if you see problems. ??? Loosen the brace or immobilizer if your toes: ? Tingle. ? Become numb. ? Turn cold and blue. ??? Keep the brace or immobilizer clean. ??? If the brace or immobilizer is not waterproof: ? Do not let it get wet. ? Cover it with a watertight covering when you take a bath or shower. Managing pain, stiffness, and swelling ??? If told, put ice on the affected area. To do this: ? If you have a removable brace or immobilizer, take it off as told by your doctor. ? Put ice in a plastic bag. ? Place a towel between your skin and the bag. ? Leave the ice on for 20 minutes, 2?3 times a day. ? Take off the ice if your skin turns bright red. This is very important. If you cannot feel pain, heat, or cold, you have a greater risk of damage to the area. ??? Move your toes often. ??? Raise your knee above the level of your heart while you are sitting or lying down. Activity ??? Rest as told by your doctor. ??? Use crutches to support your body weight. Do not use your injured leg to support your body weight until your doctor says that you can. ??? Do exercises as told by your doctor. General instructions ??? Take pgup-etg-azjlbhh and prescription medicines only as told by your doctor. ??? Do not smoke or use any products that contain nicotine or tobacco. If you need help quitting, ask your doctor. ??? Wear an elastic bandage or a wrap that puts pressure on your knee (compression wrap) as told byyour doctor. ??? Keep all follow-up visits. Contact a doctor if: ??? You continue to have pain in your knee. ??? You have a fever or chills. Get help right away if: ??? You have swelling or redness in your knee that gets worse or does not get better. ??? You have very bad pain in your knee. Summary ??? Knee effusion is when you have extra fluid in your knee. This can cause pain and swelling and can make it hard to bend and move your knee. ??? Take egpi-ipg-feyqven and prescription medicines only as told by your doctor. ??? If you have a brace or an immobilizer, wear it as told by your doctor. This information is not intended to replace advice given to you by your health care provider. Make sure you discuss any questions you have with your health care provider. Document Revised: 11/09/2020 Document Reviewed: 11/09/2020 [employer] Patient Education ? 2023 [employer]. Knee Sprain, Adult A knee sprain is a stretch or tear in a knee ligament. Knee ligaments are tissues that connect the bones of the knee joint to each other. What are the causes? This condition often results from: ??? A fall. ??? An injury to the knee. What are the signs or symptoms? Symptoms of this condition include: ??? Trouble straightening or bending the leg. ??? Swelling in the knee. ??? Bruising around the knee. ??? Tenderness or pain in the knee. ??? Sudden muscle tightening (spasm) around the knee. How is this diagnosed? This condition may be diagnosed based on: ??? A physical exam. ??? A history of what happened just before you started to have symptoms. ??? Tests. These may include: ? An X-ray. This may be done to make sure no bones are broken or moved out of position (dislocated). ? An MRI. This may be done to check if any of the ligaments are torn and to check for other damage. ? A physical exam that includes stress testing of the knee. This may be done to check for damage toligaments. How is this treated? Treatment for this condition may involve: ??? Keeping the knee in a straightened position (immobilized) with a cast, brace, or splint. ??? Applying ice to the knee. This helps with pain and swelling. ??? Raising (elevating) the knee above the level of your heart when you are resting. This helps with pain and swelling. ??? Taking medicine for pain. ??? Doing exercises to prevent or limit long-term weakness or stiffness in your knee. ??? Having surgery to reconnect ligaments to the bone or to reconstruct ligaments. This may be needed if one or more ligaments are fully torn. Follow these instructions at home: If you have a removable splint or brace: ??? Wear the splint or brace as told by your health care provider. Remove it only as told by your health care provider. ??? Check the skin around the splint or b (more content not included)...[facility]01-20-2025 Evaluation + Plan noteExtracted from:Title:ED NoteAuthor:Yaw MILES, Landon Hugo.Date:04/13/24 Contusion of left knee (S80. 02XA: Contusion of left knee, initial encounter) Right ankle sprain (S93.401A: Sprain of unspecified ligament of right ankle, initial encounter) Orders: acetaminophen-oxycodone, 1 tab(s), Oral, q6hr for pain for 3 day(s), 8 tab(s), Refill(s) 0, [facility]/pharmacy #[id number], 160, cm, 04/13/24 14:14:00 EST, Height/Length Dosing, 120, kg, 04/13/24 14:14:00 EST, Weight Dosing acetaminophen-oxycodone, 1 tab(s), Tab, Oral, Once, Stop date 04/13/24 14:31:00 EST, STAT, Start date 04/13/24 14:31:00 EST XR Ankle 3+ Views Right XR Knee Complete 4+ Views Left Future Scheduled Tests Laboratory* TSH With T4fr Reflex 07/17/23 * Urinalysis with Micro 07/17/23 * Lipid Panel 07/17/23 * Drug Screen Urine 07/17/23 Radiology* MA Mamm Screen w/CAD if perf and 3D Kenan 07/17/23 [facility] 01-19-2025 Evaluation + Plan noteExtracted from:Title: ED NoteAuthor:Annette Watkins, Balbina HDate:04/12/24 1. Muscle strain (T14.8XXA: Other injury of unspecified body region, initial encounter) 2. Lower back pain (M54.50: Low back pain, unspecified) Orders: acetaminophen-oxycodone, 1 tab(s), Tab, Oral, Once, Stop date 04/12/24 9:08:00 EST, STAT, Start date 04/12/24 9:08:00 EST cyclobenzaprine, 10 mg = 1 tab(s), Oral, TID, PRN for spasm, # 20 tab(s), Refills(s) 0, Pharmacy: [facility]/pharmacy #[id number], 160, cm, 04/12/24 9:03:00 EST, Height/Length Dosing, 120.4, kg, 04/12/24 9:03:00 EST, Weight Dosing Future Scheduled Tests Laboratory* TSH With T4fr Reflex 07/17/23 * Urinalysis with Micro 07/17/23 * Lipid Panel 07/17/23 * Drug Screen Urine 07/17/23 Radiology* MA Mamm Screen w/CAD if perf and 3D Kenan 07/17/23 [facility] 01-19-2025 Hospital Discharge instructions Patient Education 04/12/2024 09:15:55 Muscle Strain Muscle Strain A muscle strain [...] treated? This condition is initially treated with LUBIN therapy. This therapy involves: Protecting the muscle [...] is not too tight. General instructions Take xzis-yks-gvwjzlb and prescription medicines only as told by [...] far. This condition is initially treated with LUBIN therapy, which involves protecting, resting, icing, compressing, and elevating. Gentle movements may be allowed. If physical therapy was prescribed, do exercises as told by your health care provider. This information is not intended to replace advice given to you by your health care provider. Make sure you discuss any questions you have with your health care provider. Document Revised: 05/29/2021 Document Reviewed: 05/29/2021 [employer] Patient Education 2023 [employer]. Follow Up Care 04/12/2024 09:00:12 With:MARLEE FITZPATRICK Address: [address] [place], [place] [id number]- Business (1) When:04/15/2024 09:12:42 Comments:Return to the emergency room if your pain gets worse, bowel or bladder incontinence, numbness/tingling in the saddle/groin area or any new symptoms. [facility] 01-19-2025 NoteED Patient Education Note Orthopedics Muscle Strain A muscle strain is an [...] pain. Usually, recovery from muscle strain takes 1?2 weeks. Complete healing normally takes 5?6 weeks. What are the causes? This condition [...] symptoms? Symptoms of this condition include: ??? Pain. ??? Tenderness. ??? Bruising. ??? Swelling. ??? Trouble using the muscle. How is this diagnosed? This condition is diagnosed based on a physical exam and your medical history. Tests may also be done, including an X-ray, ultrasound, or MRI. How is this treated? This condition is initially treated with LUBIN therapy. This therapy involves: ??? Protecting the muscle from being injured again. ??? Resting the injured muscle. ??? Icing the injured muscle. ??? Applying pressure (compression) to the injured muscle. This may be done with a splint or elastic bandage. ??? Raising (elevating) the injured muscle. Your health care provider may also recommend medicine for pain. Follow these instructions at home: If you have a removable splint: ??? Wear the splint as told by your health care provider. Remove it only as told by your health care provider. ??? Check the skin around the splint every day. Tell your health care provider about any concerns. ??? Loosen the splint if your fingers or toes tingle, become numb, or turn cold and blue. ??? Keep the splint clean. ??? If the splint is not waterproof: ? Do not let it get wet. ? Cover it with a watertight covering when you take a bath or a shower. Managing pain, stiffness, and swelling ??? If directed, put ice on the injured area. To do this: ? If you have a removable splint, remove it [...] risk of damage to the area. ??? Move your fingers or toes often to reduce stiffness and swelling. ??? Raise (elevate) the injured area above the level of your heart while you are sitting or lying down. ??? Wear an elastic bandage as told by your health care provider. Make sure that it is not too tight. General instructions ??? Take cegu-igr-lfhqzeh and prescription medicines only as told by your health care provider. Treatment may include muscle relaxants or medicines for pain and inflammation that are taken by mouth or applied to the skin. ??? Restrict your activity and rest the injured muscle as told by your health care provider. Gentlemovements may be allowed. ??? If physical therapy was prescribed, do exercises as told by your health care provider. ??? Do not put pressure on any part of the splint until it is fully hardened. This may take severalhours. ??? Do not use any products that contain nicotine or tobacco. These products include cigarettes, chewing tobacco, and vaping devices, such as e-cigarettes. If you need help quitting, ask your health care provider. ??? Ask your health care provider when it is safe to drive if you have a splint. ??? Keep all follow-up visits. This is important. How is this prevented? Warm up before exercising. This helps to prevent future muscle strains. Contact a health care provider if: ??? You have more pain or swelling in the injured area. Get help right away if: ??? You have numbness or tingling in the injured area. ??? You lose a lot of strength in the injured area. Summary ??? A muscle strain is an injury that occurs when a muscle is stretched beyond its normal length. ??? This condition is caused when a sudden, violent force is placed on a muscle and stretches it too far. ??? This condition is initially treated with LUBIN therapy, which involves protecting, resting, icing, compressing, and elevating. ??? Gentle movements may be allowed. If physical therapy was prescribed, do exercises as told by your health care provider. This information is not intended to replace advice given to you by your health care provider. Make sure you discuss any questions you have with your health care provider. Document Revised: 05/29/2021 Document Reviewed: 05/29/2021 [email or web address] Patient Education ? 2023 [employer].[facility] 04-08-2024 NoteHNO ID: [id number] Author: ?, ?, ? Service: ? Author Type: ? Type: Progress Notes Filed: 04/13/2024 20:44 Note Text: Patient name: Jerad Tracy Are you being referred by a [facility] for Spine Health Provider or Pain Management Provider at [facility]? No If answer is YES please schedule directly with surgeon, triage does not need to be completed. Is this a self-referral No If not, who is the Referring Provider [facility] Is this a 2nd opinion from another spine surgeon? Yes Were you offered surgery? No MRI/CT/myelogram within 12 months? Yes If NO , please refer to medical spine or PCP to complete above imaging, triage does not need to be completed If YES,? please ask for the name/address of the facility where the MRI/CT/myelogram was completed: [facility] [place] [address] MRI/CT/myelogram viewable in Epic: Yes If not, please provide [phone] to fax in imaging reports for review. Also, please inform patient to hand carry imaging disc to appointment. XR (spine) within 12 months: Yes If YES,? please ask for the name/address of the facility where the XR was completed: [place] [address] Dr. Garcia's patients: Have you had previous EMG/Nerve Conduction Study, Ultrasound, or MRI for these same symptoms? If YES,? please ask for the name/address of the facility where they were completed: Requested provider (First and Last name): 1st Are you interested in a virtual visit if offered? No 1. Where are you having symptoms related to this visit? Lb/pelvis/legs/feet - l worse then r - numbness AND weakness in legs/feet - pt uses a walker - adl slower - pain is throbbing AND burning - laying on r side most comfortable - laying flat on back AND riding in car worse positions Back pain Yes Leg pain Yes Arm pain No Neck pain No 2. Are you having any of the following symptoms: Difficulty walking Yes Numbness Yes Weakness Yes Trouble using your hands? No 3. Have you had any injections or physical therapy in the last 12 months? Yes If YES then please ask for the name/address of the facility where the injections and/or physical therapy was completed [facility] [address], [place] [address] Have you tried any other kinds of non-surgical treatments in the last 12 months? (For example: NSAIDS, muscle relaxants, analgesics, oral steroids, Chiropractor, Acupuncture): allergies to lyrics AND gabapentin; ibuprofen, voltaren gel, zanaflex, cyclobenzoprene, naproxyn, robaxin, meloxicam, lido patches; mdp x2, heat 4. Are you currently taking daily prescribed narcotic medications for your current symptoms (For example Oxycodone, Hydrocodone, Tramadol, Morphine, Other)? Yes methadone - was on percocet prior 5. Have you had previous spinal surgery for this same symptoms? Yes If YES? please ask for the name of facility/address of where the surgery was completed: 01/2024 - Lumbar - [facility]; 09/2023 - Pain stim inserted AND removed same month due to blood clots - . Additional Comments [phone] NoteHNO ID: [id number] Author: CRISSY ALANIZ DO Service: ? Author Type: Physician Type: Progress Notes Filed: 04/06/2024 13:52 Note Text: [facility] History of Present illness Narrative* Crissy Alaniz DO - 04/06/2024 12:55 PM EST Patient did no show up for appointment documented [facility] History and physical note * Dino Melgoza MD - 03/30/2024 11:45 AM EST History Of Present Illness Jerad Collins is a 49 y.o. female presenting with chronic back pain radiating down to the left lower extremity the patient had a microdiscectomy at the level of the L4-L5 performed by Dr. Vance murrell February 06, 2024 she did not believe the surgery has provided her with any significant improvement in her symptoms and continue to complain of the pain radiating from the lower lumbar spine downto her left lower extremity eating her pain currently at a level of 8 out of 10 pain is aggravated by sitting and by walking she was seen and evaluated through the emergency department on multiple occasions CAT scan and MRI of the lumbar spine area were obtained showing a residual disc bulge at the level of the L4-L5 and a seroma with a potential hematoma at the level of the surgery. Described the pain currently as a throbbing burning sensation. She continues to be on lidocaine patches ibuprofen and a muscle relaxant but she does not believe the combination of the medication has been sufficient to control her pain. She is currently using a walker because of her concern about her left leg giving out on her with some weakness on the left side. Past Medical History Past Medical History: Diagnosis [...] been smoking cigarettes. She started smoking about 33 years ago. She has a16.5 pack-year smoking history. She has never used [...] taken amoxicillin in the past and tolerated. Diclofenac Hives Gabapentin Headache Lyrica [Pregabalin] Swelling BLE Tylenol [Acetaminophen] Unknown History of stage III liver fibrosis Nabumetone Nausea/vomiting and Rash Review of Systems All 13 systems were reviewed and are within normal levels except as noted below or per HPI. Positive and pertinent negative responses are noted below or in the HPI Denied any fever or chills. No weight loss and no night sweats. No cough or sputum production. No diarrhea No constipation No bladder and bowel incontinence and no other changes in bladder and bowel. No skin changes. Denied opioids diversion and abuse and denies alcoholism. Denies overuse of pain medications. Physical Exam Past medical history no interval changes has been noted On physical examination General Alert, oriented x3 pleasant and cooperative. Does not look in any major distress. HEENT Pupils normal in size. Ears, nose, mouth, and throat appear to be in normal condition. Head atraumatic No signs of sedation or signs of withdrawal apparent. Psychiatric No signs of depression apparent. Neuro Ambulates with a walker decrease in the power of the left foot extension and flexion also decrease in the flexion extension of the left knee patient described a difference in the sensation on the left anterior part of the thigh compared to the right thigh Respiratory No respiratory distress Abdomen no distention Skin No skin markings supportive of recent IV drug usage . Cardiovascular Regular rate and rhythm Last Recorded Vitals There were no vitals taken for this visit. MR lumbar spine w and wo IV contrast Result Date: 03/30/2024 * * *Final Report* * * DATE OF EXAM: Mar 30 2024 1:22AM [facility] 0304 - MRI LUMBAR SPINE WO/W IVCON / PROCEDURE REASON: Post operative complication suspected * * * * Physician Interpretation * * * * EXAMINATION: MRI LUMBAR SPINE WO/W IVCON CLINICAL HISTORY: Post operative complication suspected TECHNIQUE: Routine lumbosacral spine MR protocol without and with intravenous gadolinium. MQ: [id number] COMPARISON: CT lumbar spine 03/29/2024. RESULT: Counting reference: Lumbosacral junction. For the purposes of this report, L4-5 is considered the level of the iliac crest and assume there are 5 lumbar-type vertebrae. Anatomic variant: None. Localizer images: No significant findings. Alignment: Alignment is anatomic. Bone marrow signal/fracture: No evidence of pathologic marrow infiltration. Postoperative changes of left L4-5 laminotomy. Nonspecific fluid at the laminotomy cavitymeasuring 1.3 x 0.9 x 0.6 cm. Conus: The conus is within normal limits of signal intensity and morphology. Paraspinal soft tissues: Nonspecific fluid collection within the left posterior subcutaneous fat measuring 4.3 x 2.9 x 6.9cm. Lower thoracic spine: Visualized lower thoracic canal and foramina are patent. L1-L2: Canal andforamina are patent. L2-L3: Canal and foramina are patent L3-L4: Canal and foramina are patent L4-L5: Mild-moderate intervertebral disc height loss with slight retrolisthesis. Broad disc bulge with left subarticular disc protrusion. Left lateral recess stenosis. Mild bilateral foraminal stenosis. No significant central spinal canal stenosis. L5-S1: Canal and foramina are patent Sacrum and iliac wings: The visualized sacrum and iliac wings are within normal limits. IMPRESSION: 1. Nonspecific postoperative changes of left L4-5 laminotomy. Fluid at the laminotomy cavity and within the left posterior subcutaneous fat may reflect evolving hematoma, seroma, or infection in the recently postoperative setting. 2. Spondylolisthesis at L4-5 as described above. Broad disc bulge with left subarticular disc protrusion resulting in left lateral recess stenosis. Anatomic Lumbar Variant: None. L4-5 is considered the level of the iliac crest and assume there are 5 lumbar-type vertebrae. Stonemason: PSCB Transcribe Date/Time: Mar 30 2024 1:34A Dictated by : SIRISHA RAMAN MD This examination was interpretedand the report reviewed and electronically signed by: SIRISHA RAMAN MD on Mar 30 2024 1:42AM EST CT lumbar spine wo IV contrast Result Date: 03/29/2024 * * *Final Report* * * DATE OF EXAM: Mar 29 2024 10:07PM [facility] 0508 - CT LUMBAR SPINE WO IVCON / PROCEDURE REASON: Back pain, history of L4-L5 surgery, fluid collection. Worsening low back pain/ * * * * Physician Interpretation * * * * EXAMINATION: CT LUMBAR SPINE WO IVCON CLINICAL HISTORY: 49 year old F with a past medical history of L4-L5 surgery (02/06/24), neuro stimulator placement and removal 2/2 to hematoma and infection (Oct 2023). Pain and symptoms initially improvedafter the surgery for about 3 weeks, however she did have return of her low back pain. She states that acutely today, she developed left leg weakness and decreased sensation. TECHNIQUE: Spiral, high r esolution axial unenhanced images were obtained from the thoracolumbar junction to the sacrum with sagittal and coronal planar reconstructions. MQ: [id number]_3 CT Radiation dose: Integrated Dose-LengthProduct (DLP) for this visit = 1451 mGy*cm. CT Dose Reduction Employed: mAs-kVp adjusted based on patient size-age COMPARISON: None. RESULT: Counting reference: Lumbosacral junction. For the purposesof this report, L4-5 is considered the level of the iliac crest and assume there are 5 lumbar-type vertebrae. Anatomic variant: None. Alignment: Alignment is anatomic. Bone marrow /fracture: Postoperative changes of LEFT L4-5 laminotomy, with soft tissue thickening in the operative bed likely repres enting postoperative granulation tissue and an associated small focus of gas. Moderate disc height loss and disc desiccation with vacuum phenomenon and sclerotic degenerative endplate changes at L4-5. Mild sclerotic degenerative endplate changes and vacuum phenomenon at L5-S1. No evidence of a lytic or blastic process in the visualized spine. No evidence of acute or chronic fracture. Paraspinal soft tissues: There is a 5.7 x 3.0 x 4.3 cm fluid collection with surrounding soft tissue thickening/stranding in the LEFT paramedian subcutaneous soft tissues overlying the spine at L3 level, likely po stoperative seroma. Cholecystectomy clips. Lower thoracic spine: The visualized lower thoracic bonycanal and foramina are patent. L1-L2: Canal and foramina are patent. L2-L3: Canal and foramina are patent L3-L4: Canal and foramina are patent L4-L5: Status post LEFT L4-5 laminotomy discussed above.Disc bulge with superimposed RIGHT subarticular disc protrusion. Moderate to severe RIGHT facet arthropathy and ligamentum flavum infolding. Mild canal stenosis and RIGHT subarticular stenosis with likely impingement of descending RIGHT L5 nerve root. Severe bilateral foraminal stenosis. L5-S1: Mild disc bulge. No canal stenosis. Severe bilateral facet arthropathy. Severe RIGHT and moderate LEFT foraminal stenosis. Sacrum and iliac wings: Degenerative changes along bilateral sacroiliac joints. Bilateral osteitis condensans ilii. IMPRESSION: Postoperative changes of LEFT L4-5 laminotomy, with granulation tissue in the operativebed with associated tiny focus of gas, favor degenerative in nature. RIGHT L4-5 subarticular disc protrusion with likely impingement of descending RIGHT L5 nerve root. Severe foraminal stenoses at bilateral L4-5 and RIGHT L5-S1. 5.7 cm fluid collection with surrounding soft tissue thickening/stranding in the LEFT paramedian subcutaneous soft tissues overlying the spine at L3 level, likely postoperative seroma. Anatomic Lumbar Variant: None. L4-5 is considered the level of the iliac crest and assume there are 5 lumbar-type vertebrae. Stonemason: PSCMartha Transcribe Date/Time: Mar 29 2024 10:13P Dictated by : DEREJE GIRON MD This examination was interpreted and the report reviewed and electronically signed by: DEREJE GIRON MD on Mar 29 2024 10:30PM EST CT lumbar spine wo IV contrast Result Date: 03/28/2024 Interpreted By: Kati Beth, STUDY: CT LUMBAR SPINE WO IV CONTRAST; 03/28/2024 2:18 am INDICATION:Signs/Symptoms:pain multiple prior surgeries. COMPARISON: Multiple prior examinations, the most recent 03/19/2024 ACCESSION NUMBER(S): [id number] ORDERING CLINICIAN: DALTON GREY TECHNIQUE: Axial noncontrast images of the lumbar spine with coronal and sagittal reconstructed images. FINDINGS: ALIGNMENT: Normal. VERTEBRAE: No acute fracture. Left L4 hemilaminectomy noted. SPINAL CANAL: Moderate degenerative disc changes and facet arthropathy at L4-5 and L5-S1. T12-L1: No significant spinal canal or neural foraminal stenosis. L1-2: No significant spinal canal or neural foraminal stenosis. L2-3: No significant spinal canal or neural foraminal stenosis. L3-4: No significant spinal canal orneural foraminal stenosis. L4-5: Postsurgical changes, similar to prior. A focus of gas in the lefthemilaminectomy site is decreasing in size and likely postprocedural. There is a posterior disc oste ophyte complex resulting in similar degree of spinal canal stenosis. Mild bilateral neural foraminal stenosis is stable. L5-S1: No significant spinal canal stenosis. Mild right neural foraminal stenosis. PREVERTEBRAL SOFT TISSUES: No prevertebral soft tissue swelling. OTHER FINDINGS: Mild sacroiliac osteoarthrosis. A fluid collection in the posterior paraspinal soft tissues, to the left of midline at the L3 through L5 levels has decreased in size, currently 3.5 x 3.4 x 3 x 4.5 cm, previously approximately 5 x 4 x 7 cm. No acute fracture or traumatic subluxation of the lumbar spine. Similar appearance of postsurgical and degenerative changes as above. Decreasing subcutaneous fluid collection in the left posterior lower back, favored to represent a postoperative seroma. MACRO: None Signed by: Kati Beth 03/28/2024 2:53 AM Dictation workstation: [id number] CT lumbar spine wo IV contrast Result Date: 03/19/2024 STUDY: CT Lumbar Spine without IV Contrast; 03/19/2024 at INDICATION: Trauma evaluation status postfall. COMPARISON: CT lumbar spine 03/09/24, 12/21/23, 12/15/23, 11/13/23, 11/09/23. CT abdomen and pelvis with lumbar spine 12/07/23. ACCESSION NUMBER(S): [id number] ORDERING CLINICIAN: MAYRA WU TECHNIQUE: CT of the lumbar spine was performed without intravenous or intrathecal contrast. Sagittal and coronal reconstructions were generated. Automated mA/kV exposure control was utilizedand patient examination was performed in strict accordance with principles of ALARA. FINDINGS: The alignment is anatomic. There is no fracture or traumatic subluxation. The vertebral body heights arewell maintained. There is disc space narrowing at L4-5 and L5-S1 with posterior disc osteophyte formation. There is evidence of left laminectomy and foraminotomy at L4. There is facet arthrosis predominantly at L4-5 and L5-S1. Evaluation of the central canal is limited due to lack of intrathecal contrast. At L3-L4 there is mild annular disc bulge and mild facet arthrosis. Central canal is patent.There is no significant neural foraminal stenosis. At L4-5 there is posterior disc osteophyte formation. Central canal is decompressed. There is questionable gas within the epidural space related to prior laminectomy. There is advanced bilateral neural foraminal stenosis. At L5-S1 there is broad-based disc bulge and advanced facet arthrosis. Central canal is patent with advanced right and moderate left neural foraminal stenosis. The paravertebral soft tissues are within normal limits. The visualized abdomen is unremarkable. No acute fracture or malalignment. Degenerative changes as described predominantly at L4-5 and L5-S1. Signed by Arnoldo Lopez, DO CT lumbar spine wo IV contrast Result Date: 03/09/2024 Interpreted By: Bernadette Tapia, STUDY: CT LUMBAR SPINE WO IV CONTRAST 03/09/2024 8:27 pm INDICATION: Signs/Symptoms:Fall with injury COMPARISON: MRI of the lumbar spine dated 01/10/2024; CT ofthe lumbar spine dated 12/13/2023; ACCESSION NUMBER(S): [id number] ORDERING CLINICIAN: JAROCHO DELATORRE TECHNIQUE: Axial CT images of the lumbar spine are obtained. Axial, coronal and sagittal reconstructions are provided for review. FINDINGS: In the interim since prior MRI of the lumbar spine inthe December of 2023, there are new postsurgical changes of left L4 hemilaminotomy and left L4-L5 medial facetectomy. A new small focus of air is present within the laminotomies surgical bed (series 3, image 99), possibly epidural in location. There is an adjacent focus of soft tissue attenuation within the posterior aspect of the laminotomy surgical bed, measuring a proximally 1.8 x 1.8 cm in transaxial dimensions. A tract of soft tissue attenuation extends from the laminotomies to a 6.4 x 3.7 cm circumscribed collection within the cutaneous tissues overlying the posterior aspect of the lumbar spine, to the left of midline (series 3, image 98 and 87). Lumbar vertebral alignment is maintained, without evidence of new spondylolisthesis. Lumbar vertebral body heights are preserved without evidence of new compression fractures. Posterior elements of the lumbar spine do not demonstrate any new trauma or other acute findings, aside from the surgical changes described above. Fbqp-dy-mkwmuabngzzjlkowgvrlqi disc height loss is present at the level of L4- L5 with the associated ex vacuo disc phenomenon. No new spinal canal stenosis is identified in the lumbar spine. Vtin-yj-xjdhkyvw spinal canal narrowing due to disc osteophyte complex at the level of L4-L5 is similar to prior exam, and be tter evaluated on previous MRI of the lumbar spine. No new neural foraminal stenosis is present. Bony neural foraminal narrowing at L4-L5 bilaterally is similar to previous CT imaging. Visualized intra-abdominal structures do not demonstrate any acute abnormality. 1. No evidence of acute bony trauma within the lumbar spine. 2. In the interim since prior MRI of the lumbar spine in December of 2023, there are new postsurgical changes consistent with left-sided laminotomy of L4 and medial facetectomy of L4-L5 on the left. Several locules of air are present within the laminectomy surgical bed, an abnormal finding one month out of surgery, and possibly located within the epidural space of the spinal canal. A focus of soft tissue attenuation is present slightlymore posteriorly within the laminectomy surgical bed to the locules of air, with a tract extending to a 6.4 x 3.6 cm collection within the cutaneous fat overlying the posterior elements of the lumbarspine, which may possibly representing postsurgical hematoma/seroma, of unclear sterility. The above tract may represent granulation/scar tissue, although connection between laminotomy surgical bed in the more superficial fluid collection is not excluded or confirmed on the provided images. Correlate with WBC levels and CRP/ESR. If there are clinical findings suspicious for infection, MRI of the lumbar spine may be needed for additional evaluation. 3. Redemonstration of twhc-ik-aoblyoam spinal canal narrowing at the level of L4-L5 due to disc osteophyte complex, similar in appearance to priorCT in better evaluated on previous MRI of the lumbar spine. MACRO: None Signed by: Bernadette Tapia 03/09/2024 9:18 PM Dictation workstation: [id number] MR lumbar spine wo IV contrast Result Date: 01/10/2024 Interpreted By: Bernadette Tapia, STUDY: MR LUMBAR SPINE WO IV CONTRAST; 01/10/2024 8:51 pm INDICATION: Signs/Symptoms:left leg numbness, lower extremity weakness. COMPARISON: MRI of the lumbar spine dated 01/01/2024; 12/18/2023; 10/31/2023;. ACCESSION NUMBER(S): [id number] ORDERING CLINICIAN: GERMAINE BLAIR TECHNIQUE: Sagittal T1, [...] STIR hyperintense edema. There is redemonstration of jnac-ab-thsgqeyo disc height loss at the level of L4-L5, with intervertebral disc space is preserved at other levels. Lower thoracic spinal cord unremarkable in appearance. Conus medullaris terminates at the level of L1-L2. There is redemonstration of circumferential disc bulge with superimposed left subarticular disc protrusion at the level of L4-L5 which contributes to omsd-ig-getnavzy spinal canal and mild left-sided neural foraminal [...] at the level of L4-L5, contributing to npkm-wj-ngyprqle spinal canal and mild left-sided neural foraminal narrowing and likely abutment/effacement of the traversing left L5 nerve. 2. No new abnormality is identified in the lumbar spine in the interim to recent MRI on 01/01/2024. No new posterior disc contour abnormality or spinal canal stenosis is present. MACRO: None Signed by: Bernadette Tapia 01/10/2024 9:34 PM Dictation workstation: [id number] XR lumbar spine 4+ views w flexion extension Result Date: 01/02/2024 Interpreted By: Danielle Orozco, STUDY: XR LUMBAR SPINE 4+ VIEWS WITH FLEXION EXTENSION; 01/02/2024 8:59 am INDICATION: Signs/Symptoms:L4-L5 lumbar stenosis with concern for spondylolisthesis. COMPARISON: None. ACCESSION NUMBER(S): [id number] ORDERING CLINICIAN: ANGELA GONZALEZ FINDINGS: Multiple views of the lumbar spine are obtained. Alignment is intact. The vertebral body heights are preserved. Disc space loss at L4/L5 with endplate sclerosis and osteophytes . No acute fracture-dislocation. Discogenic degenerative changes as described. Signed by: Danielle Orozco 01/02/2024 9:15 AM Dictationworkstation: [id number] MR lumbar spine w and wo IV contrast Result Date: 01/01/2024 Interpreted By: Malak, Wassim, STUDY: MR LUMBAR SPINE W AND WO IV CONTRAST INDICATION: Signs/Symptoms:Paresthesia and weakness of the left lower extremity COMPARISON: Lumbar spine MRI 12/18/2023 ACCESSION NUMBER(S): [id number] ORDERING CLINICIAN: MICHELE LION TECHNIQUE: Multiplanar multisequence [...] by: Claudio Balderas01/01/2024 5:46 PM Dictation workstation: [id number] CT lumbar spine wo IV contrast Result Date: 12/21/2023 Interpreted By: Tomás Hercules, STUDY: CT LUMBAR SPINE WO IV CONTRAST; 12/21/2023 10:01 pm INDICATION: Signs/Symptoms:fell, injured lower back. COMPARISON: MR lumbar spine 12/18/2023 ACCESSION NUMBER(S): [id number] ORDERING CLINICIAN: FRANCISCO J DALEY TECHNIQUE: Axial [...] Tomás Hercules 12/21/2023 10:40 PM Dictation workstation: [id number] MR lumbar spine w and wo IV [...] spine dated 12/06/2023 and 11/13/2023;. ACCESSION NUMBER(S): [id number]; [id number]; [id number] ORDERING CLINICIAN: FATOU TELLEZ TECHNIQUE: Sagittal T1, [...] flavum thickening and facet arthropathy results in aoel-ul-gnventtu spinal canal stenosis. Mild neural foraminal stenosis [...] the cervical spine as detailed above, with wevf-sl-glsasbcx narrowing present at the level of C6-C7 due to disc osteophyte complex and ligamentum flavum thickening. 4. Mild degenerative changes in the thoracic spine are similar in appearanceto prior exam on 11/08/2023 without evidence of new high-grade stenosis.. I personally reviewed theimages/study and I agree with the findings as stated by resident physician Dr. Rick Nevarez. This study was interpreted at [place], [place]. MACRO: None Signed by: Bernadette Tapia 12/19/2023 2:07 AM Dictation workstation: [id number] MR cervical spine w and wo IV [...] spine dated 12/06/2023 and 11/13/2023;. ACCESSION NUMBER(S): [id number]; [id number]; [id number] ORDERING CLINICIAN: FATOU TELLEZ TECHNIQUE: Sagittal T1, [...] flavum thickening and facet arthropathy results in vxrh-sv-llevzcew spinal canal stenosis. Mild neural foraminal stenosis [...] the cervical spine as detailed above, with xisy-ke-ireyerln narrowing present at the level of C6-C7 due to disc osteophyte complex and ligamentum flavum thickening. 4. Mild degenerative changes in the thoracic spine are similar in appearanceto prior exam on 11/08/2023 without evidence of new high-grade stenosis.. I personally reviewed theimages/study and I agree with the findings as stated by resident physician Dr. Rick Nevarez. This study was interpreted at [facility], [place], [place]. MACRO: None Signed by: Bernadette Tapia 12/19/2023 2:07 AM Dictation workstation: [id number] MR thoracic spine w and wo IV contrast Result Date: 12/19/2023 Interpreted By: Bernadette Tapia and Afshari Mirak Sohrab STUDY: MR CERVICAL SPINE W AND WO [...] spine dated 12/06/2023 and 11/13/2023;. ACCESSION NUMBER(S): [id number]; [id number]; [id number] ORDERING CLINICIAN: FATOU TELLEZ TECHNIQUE: Sagittal T1, [...] flavum thickening and facet arthropathy results in fmec-cn-fqkhivrm spinal canal stenosis. Mild neural foraminal stenosis [...] the cervical spine as detailed above, with zuhu-pd-meddgwcm narrowing present at the level of C6-C7 due to disc osteophyte complex and ligamentum flavum thickening. 4. Mild degenerative changes in the thoracic spine are similar in appearanceto prior exam on 11/08/2023 without evidence of new high-grade stenosis.. I personally reviewed theimages/study and I agree with the findings as stated by resident physician Dr. Rick Nevarez. This study was interpreted at [facility], [place], [place]. MACRO: None Signed by: Bernadette Tapia 12/19/2023 2:07 AM Dictation workstation: [id number] CT lumbar spine w IV contrast Result Date: 12/15/2023 Interpreted By: Allyson Schultz, STUDY: CT ABDOMEN PELVIS W IV CONTRAST; CT LUMBAR SPINE W IV CONTRAST; 12/15/2023 7:50 pm INDICATION: Signs/Symptoms:h/o spinal stim c/b infections with wound vac inplace, pain to surrounding areas radiating to flanks. COMPARISON: 12/07/2023 CT abdomen/pelvis ACCESSION NUMBER(S): [id number]; [id number] ORDERING CLINICIAN: LILIA GERONIMO TECHNIQUE: Contiguous axial images of the [...] right and mild left L5-S1 neural foraminal (more content not included)... [facility] Work Phone: [phone] 374-776101-06-2025 History and physical note* Dino Melgoza MD - 03/30/2024 11:45 AM EST History Of Present Illness Jerad Collins is a 49 y.o. female presenting with chronic back pain radiating down to the left lower extremity the patient had a microdiscectomy at the level of the L4-L5 performed by Dr. Vance murrell February 06, 2024 she did not believe the surgery has provided her with any significant improvement in her symptoms and continue to complain of the pain radiating from the lower lumbar spine downto her left lower extremity eating her pain currently at a level of 8 out of 10 pain is aggravated by sitting and by walking she was seen and evaluated through the emergency department on multiple occasions CAT scan and MRI of the lumbar spine area were obtained showing a residual disc bulge at the level of the L4-L5 and a seroma with a potential hematoma at the level of the surgery. Described the pain currently as a throbbing burning sensation. She continues to be on lidocaine patches ibuprofen and a muscle relaxant but she does not believe the combination of the medication has been sufficient to control her pain. She is currently using a walker because of her concern about her left leg giving out on her with some weakness on the left side. Past Medical History Past Medical History: Diagnosis [...] been smoking cigarettes. She started smoking about 33 years ago. She has a16.5 pack-year smoking history. She has never used [...] taken amoxicillin in the past and tolerated. Diclofenac Hives Gabapentin Headache Lyrica [Pregabalin] Swelling BLE Tylenol [Acetaminophen] Unknown History of stage III liver fibrosis Nabumetone Nausea/vomiting and Rash Review of Systems All 13 systems were reviewed and are within normal levels except as noted below or per HPI. Positive and pertinent negative responses are noted below or in the HPI Denied any fever or chills. No weight loss and no night sweats. No cough or sputum production. No diarrhea No constipation No bladder and bowel incontinence and no other changes in bladder and bowel. No skin changes. Denied opioids diversion and abuse and denies alcoholism. Denies overuse of pain medications. Physical Exam Past medical history no interval changes has been noted On physical examination General Alert, oriented x3 pleasant and cooperative. Does not look in any major distress. HEENT Pupils normal in size. Ears, nose, mouth, and throat appear to be in normal condition. Head atraumatic No signs of sedation or signs of withdrawal apparent. Psychiatric No signs of depression apparent. Neuro Ambulates with a walker decrease in the power of the left foot extension and flexion also decrease in the flexion extension of the left knee patient described a difference in the sensation on the left anterior part of the thigh compared to the right thigh Respiratory No respiratory distress Abdomen no distention Skin No skin markings supportive of recent IV drug usage . Cardiovascular Regular rate and rhythm Last Recorded Vitals There were no vitals taken for this visit. MR lumbar spine w and wo IV contrast Result Date: 03/30/2024 * * *Final Report* * * DATE OF EXAM: Mar 30 2024 1:22AM [facility] 0304 - MRI LUMBAR SPINE WO/W IVCON / PROCEDURE REASON: Post operative complication suspected * * * * Physician Interpretation * * * * EXAMINATION: MRI LUMBAR SPINE WO/W IVCON CLINICAL HISTORY: Post operative complication suspected TECHNIQUE: Routine lumbosacral spine MR protocol without and with intravenous gadolinium. MQ: [id number] COMPARISON: CT lumbar spine 03/29/2024. RESULT: Counting reference: Lumbosacral junction. For the purposes of this report, L4-5 is considered the level of the iliac crest and assume there are 5 lumbar-type vertebrae. Anatomic variant: None. Localizer images: No significant findings. Alignment: Alignment is anatomic. Bone marrow signal/fracture: No evidence of pathologic marrow infiltration. Postoperative changes of left L4-5 laminotomy. Nonspecific fluid at the laminotomy cavitymeasuring 1.3 x 0.9 x 0.6 cm. Conus: The conus is within normal limits of signal intensity and morphology. Paraspinal soft tissues: Nonspecific fluid collection within the left posterior subcutaneous fat measuring 4.3 x 2.9 x 6.9cm. Lower thoracic spine: Visualized lower thoracic canal and foramina are patent. L1-L2: Canal andforamina are patent. L2-L3: Canal and foramina are patent L3-L4: Canal and foramina are patent L4-L5: Mild-moderate intervertebral disc height loss with slight retrolisthesis. Broad disc bulge with left subarticular disc protrusion. Left lateral recess stenosis. Mild bilateral foraminal stenosis. No significant central spinal canal stenosis. L5-S1: Canal and foramina are patent Sacrum and iliac wings: The visualized sacrum and iliac wings are within normal limits. IMPRESSION: 1. Nonspecific postoperative changes of left L4-5 laminotomy. Fluid at the laminotomy cavity and within the left posterior subcutaneous fat may reflect evolving hematoma, seroma, or infection in the recently postoperative setting. 2. Spondylolisthesis at L4-5 as described above. Broad disc bulge with left subarticular disc protrusion resulting in left lateral recess stenosis. Anatomic Lumbar Variant: None. L4-5 is considered the level of the iliac crest and assume there are 5 lumbar-type vertebrae. Stonemason: GIA Transcribe Date/Time: Mar 30 2024 1:34A Dictated by : SIRISHA RAMAN MD This examination was interpretedand the report reviewed and electronically signed by: SIRISHA RAMAN MD on Mar 30 2024 1:42AM EST CT lumbar spine wo IV contrast Result Date: 03/29/2024 * * *Final Report* * * DATE OF EXAM: Mar 29 2024 10:07PM [facility] 0508 - CT LUMBAR SPINE WO IVCON / PROCEDURE REASON: Back pain, history of L4-L5 surgery, fluid collection. Worsening low back pain/ * * * * Physician Interpretation * * * * EXAMINATION: CT LUMBAR SPINE WO IVCON CLINICAL HISTORY: 49 year old F with a past medical history of L4-L5 surgery (02/06/24), neuro stimulator placement and removal 2/2 to hematoma and infection (Oct 2023). Pain and symptoms initially improvedafter the surgery for about 3 weeks, however she did have return of her low back pain. She states that acutely today, she developed left leg weakness and decreased sensation. TECHNIQUE: Spiral, high r esolution axial unenhanced images were obtained from the thoracolumbar junction to the sacrum with sagittal and coronal planar reconstructions. MQ: [id number]_3 CT Radiation dose: Integrated Dose-LengthProduct (DLP) for this visit = 1451 mGy*cm. CT Dose Reduction Employed: mAs-kVp adjusted based on patient size-age COMPARISON: None. RESULT: Counting reference: Lumbosacral junction. For the purposesof this report, L4-5 is considered the level of the iliac crest and assume there are 5 lumbar-type vertebrae. Anatomic variant: None. Alignment: Alignment is anatomic. Bone marrow /fracture: Postoperative changes of LEFT L4-5 laminotomy, with soft tissue thickening in the operative bed likely repres enting postoperative granulation tissue and an associated small focus of gas. Moderate disc height loss and disc desiccation with vacuum phenomenon and sclerotic degenerative endplate changes at L4-5. Mild sclerotic degenerative endplate changes and vacuum phenomenon at L5-S1. No evidence of a lytic or blastic process in the visualized spine. No evidence of acute or chronic fracture. Paraspinal soft tissues: There is a 5.7 x 3.0 x 4.3 cm fluid collection with surrounding soft tissue thickening/stranding in the LEFT paramedian subcutaneous soft tissues overlying the spine at L3 level, likely po stoperative seroma. Cholecystectomy clips. Lower thoracic spine: The visualized lower thoracic bonycanal and foramina are patent. L1-L2: Canal and foramina are patent. L2-L3: Canal and foramina are patent L3-L4: Canal and foramina are patent L4-L5: Status post LEFT L4-5 laminotomy discussed above.Disc bulge with superimposed RIGHT subarticular disc protrusion. Moderate to severe RIGHT facet arthropathy and ligamentum flavum infolding. Mild canal stenosis and RIGHT subarticular stenosis with likely impingement of descending RIGHT L5 nerve root. Severe bilateral foraminal stenosis. L5-S1: Mild disc bulge. No canal stenosis. Severe bilateral facet arthropathy. Severe RIGHT and moderate LEFT foraminal stenosis. Sacrum and iliac wings: Degenerative changes along bilateral sacroiliac joints. Bilateral osteitis condensans ilii. IMPRESSION: Postoperative changes of LEFT L4-5 laminotomy, with granulation tissue in the operativebed with associated tiny focus of gas, favor degenerative in nature. RIGHT L4-5 subarticular disc protrusion with likely impingement of descending RIGHT L5 nerve root. Severe foraminal stenoses at bilateral L4-5 and RIGHT L5-S1. 5.7 cm fluid collection with surrounding soft tissue thickening/stranding in the LEFT paramedian subcutaneous soft tissues overlying the spine at L3 level, likely postoperative seroma. Anatomic Lumbar Variant: None. L4-5 is considered the level of the iliac crest and assume there are 5 lumbar-type vertebrae. Stonemason: GIA Transcribe Date/Time: Mar 29 2024 10:13P Dictated by : DEREJE GIRON MD This examination was interpreted and the report reviewed and electronically signed by: DEREJE GIRON MD on Mar 29 2024 10:30PM EST CT lumbar spine wo IV contrast Result Date: 03/28/2024 Interpreted By: Kati Beth, STUDY: CT LUMBAR SPINE WO IV CONTRAST; 03/28/2024 2:18 am INDICATION:Signs/Symptoms:pain multiple prior surgeries. COMPARISON: Multiple prior examinations, the most recent 03/19/2024 ACCESSION NUMBER(S): [id number] ORDERING CLINICIAN: DALTON GREY TECHNIQUE: Axial noncontrast images of the lumbar spine with coronal and sagittal reconstructed images. FINDINGS: ALIGNMENT: Normal. VERTEBRAE: No acute fracture. Left L4 hemilaminectomy noted. SPINAL CANAL: Moderate degenerative disc changes and facet arthropathy at L4-5 and L5-S1. T12-L1: No significant spinal canal or neural foraminal stenosis. L1-2: No significant spinal canal or neural foraminal stenosis. L2-3: No significant spinal canal or neural foraminal stenosis. L3-4: No significant spinal canal orneural foraminal stenosis. L4-5: Postsurgical changes, similar to prior. A focus of gas in the lefthemilaminectomy site is decreasing in size and likely postprocedural. There is a posterior disc oste ophyte complex resulting in similar degree of spinal canal stenosis. Mild bilateral neural foraminal stenosis is stable. L5-S1: No significant spinal canal stenosis. Mild right neural foraminal stenosis. PREVERTEBRAL SOFT TISSUES: No prevertebral soft tissue swelling. OTHER FINDINGS: Mild sacroiliac osteoarthrosis. A fluid collection in the posterior paraspinal soft tissues, to the left of midline at the L3 through L5 levels has decreased in size, currently 3.5 x 3.4 x 3 x 4.5 cm, previously approximately 5 x 4 x 7 cm. No acute fracture or traumatic subluxation of the lumbar spine. Similar appearance of postsurgical and degenerative changes as above. Decreasing subcutaneous fluid collection in the left posterior lower back, favored to represent a postoperative seroma. MACRO: None Signed by: Kati Beth 03/28/2024 2:53 AM Dictation workstation: [id number] CT lumbar spine wo IV contrast Result Date: 03/19/2024 STUDY: CT Lumbar Spine without IV Contrast; 03/19/2024 at INDICATION: Trauma evaluation status postfall. COMPARISON: CT lumbar spine 03/09/24, 12/21/23, 12/15/23, 11/13/23, 11/09/23. CT abdomen and pelvis with lumbar spine 12/07/23. ACCESSION NUMBER(S): [id number] ORDERING CLINICIAN: MAYRA WU TECHNIQUE: CT of the lumbar spine was performed without intravenous or intrathecal contrast. Sagittal and coronal reconstructions were generated. Automated mA/kV exposure control was utilizedand patient examination was performed in strict accordance with principles of ALARA. FINDINGS: The alignment is anatomic. There is no fracture or traumatic subluxation. The vertebral body heights arewell maintained. There is disc space narrowing at L4-5 and L5-S1 with posterior disc osteophyte formation. There is evidence of left laminectomy and foraminotomy at L4. There is facet arthrosis predominantly at L4-5 and L5-S1. Evaluation of the central canal is limited due to lack of intrathecal contrast. At L3-L4 there is mild annular disc bulge and mild facet arthrosis. Central canal is patent.There is no significant neural foraminal stenosis. At L4-5 there is posterior disc osteophyte formation. Central canal is decompressed. There is questionable gas within the epidural space related to prior laminectomy. There is advanced bilateral neural foraminal stenosis. At L5-S1 there is broad-based disc bulge and advanced facet arthrosis. Central canal is patent with advanced right and moderate left neural foraminal stenosis. The paravertebral soft tissues are within normal limits. The visualized abdomen is unremarkable. No acute fracture or malalignment. Degenerative changes as described predominantly at L4-5 and L5-S1. Signed by Arnoldo Lopez, CT lumbar spine wo IV contrast Result Date: 03/09/2024 Interpreted By: Bernadette Tapia, STUDY: CT LUMBAR SPINE WO IV CONTRAST 03/09/2024 8:27 pm INDICATION: Signs/Symptoms:Fall with injury COMPARISON: MRI of the lumbar spine dated 01/10/2024; CT ofthe lumbar spine dated 12/13/2023; ACCESSION NUMBER(S): [id number] ORDERING CLINICIAN: JAROCHO DELATORRE TECHNIQUE: Axial CT images of the lumbar spine are obtained. Axial, coronal and sagittal reconstructions are provided for review. FINDINGS: In the interim since prior MRI of the lumbar spine inthe December of 2023, there are new postsurgical changes of left L4 hemilaminotomy and left L4-L5 medial facetectomy. A new small focus of air is present within the laminotomies surgical bed (series 3, image 99), possibly epidural in location. There is an adjacent focus of soft tissue attenuation within the posterior aspect of the laminotomy surgical bed, measuring a proximally 1.8 x 1.8 cm in transaxial dimensions. A tract of soft tissue attenuation extends from the laminotomies to a 6.4 x 3.7 cm circumscribed collection within the cutaneous tissues overlying the posterior aspect of the lumbar spine, to the left of midline (series 3, image 98 and 87). Lumbar vertebral alignment is maintained, without evidence of new spondylolisthesis. Lumbar vertebral body heights are preserved without evidence of new compression fractures. Posterior elements of the lumbar spine do not demonstrate any new trauma or other acute findings, aside from the surgical changes described above. Gach-jy-misszxvbxtvliukfcgoint disc height loss is present at the level of L4- L5 with the associated ex vacuo disc phenomenon. No new spinal canal stenosis is identified in the lumbar spine. Gavp-qe-rfxkxlmd spinal canal narrowing due to disc osteophyte complex at the level of L4-L5 is similar to prior exam, and be tter evaluated on previous MRI of the lumbar spine. No new neural foraminal stenosis is present. Bony neural foraminal narrowing at L4-L5 bilaterally is similar to previous CT imaging. Visualized intra-abdominal structures do not demonstrate any acute abnormality. 1. No evidence of acute bony trauma within the lumbar spine. 2. In the interim since prior MRI of the lumbar spine in December of 2023, there are new postsurgical changes consistent with left-sided laminotomy of L4 and medial facetectomy of L4-L5 on the left. Several locules of air are present within the laminectomy surgical bed, an abnormal finding one month out of surgery, and possibly located within the epidural space of the spinal canal. A focus of soft tissue attenuation is present slightlymore posteriorly within the laminectomy surgical bed to the locules of air, with a tract extending to a 6.4 x 3.6 cm collection within the cutaneous fat overlying the posterior elements of the lumbarspine, which may possibly representing postsurgical hematoma/seroma, of unclear sterility. The above tract may represent granulation/scar tissue, although connection between laminotomy surgical bed in the more superficial fluid collection is not excluded or confirmed on the provided images. Correlate with WBC levels and CRP/ESR. If there are clinical findings suspicious for infection, MRI of the lumbar spine may be needed for additional evaluation. 3. Redemonstration of eqty-xe-izqtmnyq spinal canal narrowing at the level of L4-L5 due to disc osteophyte complex, similar in appearance to priorCT in better evaluated on previous MRI of the lumbar spine. MACRO: None Signed by: Bernadette Tapia 03/09/2024 9:18 PM Dictation workstation: [id number] MR lumbar spine wo IV contrast Result Date: 01/10/2024 Interpreted By: Bernadette Tapia, STUDY: MR LUMBAR SPINE WO IV CONTRAST; 01/10/2024 8:51 pm INDICATION: Signs/Symptoms:left leg numbness, lower extremity weakness. COMPARISON: MRI of the lumbar spine dated 01/01/2024; 12/18/2023; 10/31/2023;. ACCESSION NUMBER(S): [id number] ORDERING CLINICIAN: GERMAINE BLAIR TECHNIQUE: Sagittal T1, [...] STIR hyperintense edema. There is redemonstration of tpqx-sk-nfvvafdl disc height loss at the level of L4-L5, with intervertebral disc space is preserved at other levels. Lower thoracic spinal cord unremarkable in appearance. Conus medullaris terminates at the level of L1-L2. There is redemonstration of circumferential disc bulge with superimposed left subarticular disc protrusion at the level of L4-L5 which contributes to nuvi-gf-blwgvzlc spinal canal and mild left-sided neural foraminal [...] at the level of L4-L5, contributing to gnhh-oh-boujvdkg spinal canal and mild left-sided neural foraminal narrowing and likely abutment/effacement of the traversing left L5 nerve. 2. No new abnormality is identified in the lumbar spine in the interim to recent MRI on 01/01/2024. No new posterior disc contour abnormality or spinal canal stenosis is present. MACRO: None Signed by: Bernadette Tapia 01/10/2024 9:34 PM Dictation workstation: [id number] XR lumbar spine 4+ views w flexion extension Result Date: 01/02/2024 Interpreted By: Danielle Orozco, STUDY: XR LUMBAR SPINE 4+ VIEWS WITH FLEXION EXTENSION; 01/02/2024 8:59 am INDICATION: Signs/Symptoms:L4-L5 lumbar stenosis with concern for spondylolisthesis. COMPARISON: None. ACCESSION NUMBER(S): [id number] ORDERING CLINICIAN: ANGELA GONZALEZ FINDINGS: Multiple views of the lumbar spine are obtained. Alignment is intact. The vertebral body heights are preserved. Disc space loss at L4/L5 with endplate sclerosis and osteophytes . No acute fracture-dislocation. Discogenic degenerative changes as described. Signed by: Danielle Orozco 01/02/2024 9:15 AM Dictationworkstation: [id number] MR lumbar spine w and wo IV contrast Result Date: 01/01/2024 Interpreted By: Claudio Balderas, STUDY: MR LUMBAR SPINE W AND WO IV CONTRAST INDICATION: Signs/Symptoms:Paresthesia and weakness of the left lower extremity COMPARISON: Lumbar spine MRI 12/18/2023 ACCESSION NUMBER(S): [id number] ORDERING CLINICIAN: MICHELE LION TECHNIQUE: Multiplanar multisequence [...] by: Claudio Balderas01/01/2024 5:46 PM Dictation workstation: [id number] CT lumbar spine wo IV contrast Result Date: 12/21/2023 Interpreted By: Tomás Hercules, STUDY: CT LUMBAR SPINE WO IV CONTRAST; 12/21/2023 10:01 pm INDICATION: Signs/Symptoms:fell, injured lower back. COMPARISON: MR lumbar spine 12/18/2023 ACCESSION NUMBER(S): [id number] ORDERING CLINICIAN: FRANCISCO J DALEY TECHNIQUE: Axial [...] Tomás Hercules 12/21/2023 10:40 PM Dictation workstation: [id number] MR lumbar spine w and wo IV [...] spine dated 12/06/2023 and 11/13/2023;. ACCESSION NUMBER(S): [id number]; [id number]; [id number] ORDERING CLINICIAN: FATOU TELLEZ TECHNIQUE: Sagittal T1, [...] flavum thickening and facet arthropathy results in roqu-ck-gvanwswt spinal canal stenosis. Mild neural foraminal stenosis [...] the cervical spine as detailed above, with appm-gs-mmutoytk narrowing present at the level of C6-C7 due to disc osteophyte complex and ligamentum flavum thickening. 4. Mild degenerative changes in the thoracic spine are similar in appearanceto prior exam on 11/08/2023 without evidence of new high-grade stenosis.. I personally reviewed theimages/study and I agree with the findings as stated by resident physician Dr. Rick Nevarez. This study was interpreted at [place], [place]. MACRO: None Signed by: Bernadette Tapia 12/19/2023 2:07 AM Dictation workstation: [id number] MR cervical spine w and wo IV [...] spine dated 12/06/2023 and 11/13/2023;. ACCESSION NUMBER(S): [id number]; [id number]; [id number] ORDERING CLINICIAN: FATOU TELLEZ TECHNIQUE: Sagittal T1, [...] flavum thickening and facet arthropathy results in kgpv-tz-txomnank spinal canal stenosis. Mild neural foraminal stenosis [...] the cervical spine as detailed above, with cvkt-aj-knfgvuhu narrowing present at the level of C6-C7 due to disc osteophyte complex and ligamentum flavum thickening. 4. Mild degenerative changes in the thoracic spine are similar in appearanceto prior exam on 11/08/2023 without evidence of new high-grade stenosis.. I personally reviewed theimages/study and I agree with the findings as stated by resident physician Dr. Rick Nevarez. This study was interpreted at [place], [place]. MACRO: None Signed by: Bernadette Tapia 12/19/2023 2:07 AM Dictation workstation: [id number] MR thoracic spine w and wo IV [...] spine dated 12/06/2023 and 11/13/2023;. ACCESSION NUMBER(S): [id number]; [id number]; [id number] ORDERING CLINICIAN: FATOU TELLEZ TECHNIQUE: Sagittal T1, [...] flavum thickening and facet arthropathy results in rnyt-lt-fevszkef spinal canal stenosis. Mild neural foraminal stenosis [...] the cervical spine as detailed above, with fnyr-cm-xurmelec narrowing present at the level of C6-C7 due to disc osteophyte complex and ligamentum flavum thickening. 4. Mild degenerative changes in the thoracic spine are similar in appearanceto prior exam on 11/08/2023 without evidence of new high-grade stenosis.. I personally reviewed theimages/study and I agree with the findings as stated by resident physician Dr. Rick Nevarez. This study was interpreted at [place], [place]. MACRO: None Signed by: Bernadette Tapia 12/19/2023 2:07 AM Dictation workstation: [id number] CT lumbar spine w IV contrast Result Date: 12/15/2023 Interpreted By: Allyson Schultz, STUDY: CT ABDOMEN PELVIS W IV CONTRAST; CT LUMBAR SPINE W IV CONTRAST; 12/15/2023 7:50 pm INDICATION: Signs/Symptoms:h/o spinal stim c/b infections with wound vac inplace, pain to surrounding areas radiating to flanks. COMPARISON: 12/07/2023 CT abdomen/pelvis ACCESSION NUMBER(S): [id number]; [id number] ORDERING CLINICIAN: LILIA GERONIMO TECHNIQUE: Contiguous axial images of the [...] Allyson Schultz 12/15/2023 8:37 PM Dictation workstation: [id number] CT lumbar spine wo IV contrast Result [...] spine , XR abdomen 10/31/2023. ACCESSION NUMBER(S): [id number], [id number] ORDERING CLINICIAN: DOUG ALFONSO TECHNIQUE: CT of [...] COMPARISON: MR lumbar spine 11/13/2023. ACCESSION NUMBER(S): [id number] ORDERING CLINICIAN: MARQUIS OBRIEN TECHNIQUE: SagittalT1, T2, STIR, axial T1 and [...] severe left subarticular stenosis, similar to prior. Kpuu-so-xsjhenug nsimr-yvrifyq-ibnq-left neural foraminal stenosis. L5-S1: Small disc bulge [...] Suarez MD. This study was interpreted at [facility], [place], [place] MACRO: None Signed by: Oscar Sabillon 12/07/2023 1:30 AM Dictation workstation: [id number] CT lumbar spine w IV contrast Result [...] consider dedicated adrenal imaging. Keke Beebe D.O.Workstation ID:[id number] MR lumbar spine w and wo IV contrast Result Date: 11/14/2023 Interpreted By: Oscar Sablilon, and Kenji Herr STUDY: MR LUMBAR SPINE W AND WO IV CONTRAST; 11/13/2023 8:10 pm INDICATION: Signs/Symptoms:r/o abscess. COMPARISON: MRI lumbar spine 10/31/2023 ACCESSION NUMBER(S): [id number] ORDERING CLINICIAN: CRISTOBAL JESSICA TECHNIQUE: Sagittal T1, T2, STIR, axial T1 [...] similar to prior. There is also similar ziyu-uu-cfzcyykt right greater than left foraminal stenosis due [...] findings as stated.This study was interpreted at [place], [place]. Signed by: Oscar Sabillon 11/14/2023 2:57 AM Dictation workstation: [id number] CT lumbar spine wo IV contrast Addendum Date: 11/13/2023 This finding was discussed with and acknowledged by Dr Alana Lindquist on 11/13/2023 at 2:54 PM Signed by Michele Berry MD Result Date: 11/13/2023 STUDY: CT Lumbar Spine without IV Contrast; 11/13/2023 1:45 PM INDICATION: Re- assess surgical site. COMPARISON: CT lumbar 11/09/2023. MR lumbar 10/31/2023. ACCESSION NUMBER(S): [id number] ORDERING CLINICIAN: ALANA LINDQUIST TECHNIQUE: CT of [...] COMPARISON: MR lumbar 10/31/2023, 10/31/2022. ACCESSION NUMBER(S): [id number] ORDERING CLINICIAN: JAROCHO LINDER TECHNIQUE: CT of [...] protocol CT is recommended. Signed by Doc Romero MD MR thoracic spine wo IV contrast Result Date: 11/08/2023 Interpreted By: Mora Smith, STUDY: MR THORACIC SPINE WO IV CONTRAST; 11/08/2023 8:25 am INDICATION: Signs/Symptoms:presurgical planning for reimplant of thoracic spinal cord stimulator leads. COMPARISON: None. ACCESSION NUMBER(S): [id number] ORDERING CLINICIAN: CHIRAG REYNOSO TECHNIQUE: Sagittal T1, [...] as described above. MACRO: None Signed by: Mora Smith :53 AM Dictation workstation: [id number] MR lumbar spine w and wo IV [...] night Additional signs and symptoms: kub done 8/7for mri clearance FINDINGS: BONES/ALIGNMENT: Modic type 2 [...] COMPARISON: MRI lumbar spine 10/31/2022 ACCESSION NUMBER(S): [id number] ORDERING CLINICIAN: ELKE ADAMS TECHNIQUE: Multiplanar multisequence [...] agree with Germaine Solitario DO's (vice president of news) findings as stated. This study was interpreted at [place], [place]. MACRO: None Signed by: Amy Miller 11/01/2023 12:21 AM Dictation workstation: [id number] Assessment/Plan 49 years old with history and physical examination supportive of lumbar radiculopathy status post microdiscectomy with persistent weakness on the left lower extremity and pain Plan Advised the patient that I will be referring her for initiation of physical therapy the patient have an appointment coming up with Dr. Adams on 24 April in the meantime I will be starting her on methadone 5 mg twice per day the patient will keep a pain diary and I will be following up with her within 1 month to reassess her improvement the patient agreed to the terms of an opiate contract that she signed today and she was advised always take the least needed of the medication to keep her symptoms under control and to fight any constipation with the usage of stool softener The above clinical summary has been dictated with voice recognition software. It has not been proofread for grammatical errors, typographical mistakes, or other semantic inconsistencies. Thank you for visiting our office today. It was our pleasure to take part in your healthcare. Please do not hesitate to contact the pain clinic after your visit with any questions or concerns at [phone] M-F 8-4 pm Dino Melgoza M.D. [employer] , Division of Pain Medicine [facility] [employer] Computer Scientist of Anesthesiology and Pain Medicine [facility] [employer] [place] [id number] Office: [phone] Dino Melgoza MD documented [facility] Work Phone: 1(826) 429-911601-06-2025 History of Present illness Narrative* April Joyce RN - 03/30/2024 11:45 AM EST Here for pain medication refill documented in this encounterJoint [facility] Work Phone: 1(522) 105-220801-06-2025 NoteHNO ID: [id number] Author: DINORA ROBERTS RN Service: ? Author Type: Registered Nurse Type: Progress Notes Filed: 03/30/2024 01:02 Note Text: Radiology Service Progress Note DATE OF SERVICE: March 30, 2024 TIME: 1:02 AM PATIENT WEIGHT: LBS PATIENT IDENTITY VERIFICATION COMPLETED USING TWO (2) STANDARD IDENTIFIERS: Name and Date of confirmed by patient verbally. FALL SCREENING: Has the patient had 2 falls in the last year or 1 fall with injury or currently using an Ambulatory Assistive Device (Walker, Cane, Wheelchair, Crutches, etc.)? Inpatient: Screened on floor PATIENT GENDER DATA: Female. status: : No status: NO. ALLERGIES: Reviewed and unchanged CONTRAST ALLERGY: No EXAM: MRI - CONTRAST TYPE: GROUP II IV SITE: Inpatient - refer to LDA documentation IV SITE APPEARANCE: Clean,Dry and Intact SIGNATURE: Dinora Roberts RN PATIENT NAME: Jerad Tracy DATE: March 30, 2024 TIME: 1:02 [facility]01-04-2025 Hospital Discharge instructions Follow Up Care 03/28/2024 12:23:08 With:MARLEE FITZPATRICK Address: [address] [place] [address] Business (1) When:Within 3 Day(s) [facility] [phone] Evaluation + Plan noteExtracted from:Title: ED NoteAuthor:Jorge Mcintosh DODate:03/28/24 Chronic back pain (M54.9: Do rsalgia, unspecified) Other chronic pain (G89.29: Other chronic pain) Orders: ketorolac, 60 mg = 2 mL, Injection, IntraMuscular, Once, Stop date 03/28/24 12:39:00 EST, STAT, Start date 03/28/24 12:39:00 EST, 03/28/24 12:39:00 EST oxycodone, 5 mg = 1 tab(s), Tab, Oral, Once, Stop date 03/28/24 12:39:00 EST, STAT, Start date 03/28/24 12:39:00 EST, 03/28/24 12:39:00 EST Future Scheduled Tests Laboratory* TSH With T4fr Reflex 07/17/23 * Urinalysis with Micro 07/17/23 * Lipid Panel 07/17/23 * Drug Screen Urine 07/17/23 Radiology* MA Mamm Screen w/CAD if perf and 3D Kenan 07/17/23 [facility] 01-03-2025 Emergency department Note* Dalton Grey MD - 03/27/2024 6:01 PM EST HPI Chief Complaint Patient presents with Back Pain leg numbness HPI The patient has history of multiple lumbar back surgeries the latest was 02/06/2024. She saw pain management once. Since then she has been [facility] She has had pain since driving on a date and for the new years. She has been seen on the first the second and the third of this year. States that she has numbness of her left leg which is worsetoday. States that she has a feeling that she has trouble with urine but is able to produce urine here without difficulty. 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 Constitutional: General: She is not in acute distress. Appearance: She is well-developed. HENT: Head: Normocephalic and atraumatic. Eyes: Conjunctiva/sclera: Conjunctivae normal. Cardiovascular: Rate and Rhythm: Normal rate and regular rhythm. Heart sounds: No murmur heard. Pulmonary: Effort: Pulmonary effort is normal. No respiratory distress. Breath sounds: Normal breath sounds. Abdominal: Palpations: Abdomen is soft. Tenderness: There is no abdominal tenderness. Comments: Well-healed surgical scars, no anterior abdominal tenderness Musculoskeletal: General: No swelling. Cervical back: Neck supple. Skin: General: Skin is warm and dry. Capillary Refill: Capillary refill takes less than 2 seconds. Neurological: Mental Status: She is alert. Psychiatric: Mood and Affect: Mood normal. ED Course & MDM Diagnoses as of 03/28/24 0053 Chronic low back pain with left-sided sciatica, unspecified back pain laterality No data recorded MDM The patient has acute on chronic pain. She was complaining of similar pain when she had a wound VACon her previous surgery. She had recent surgery after that. Is continue to have pain ever since thedrive down to [place]. Is sitting rocking in bed. Appears to be in no other distress. No signs of sepsis. The patient's CT scan shows no obvious hardware loosening. Patient has improvement of her fluid collection on her back. Procedure Procedures Dalton Grey MD 03/28/24 0341 * KASH Parker - 03/27/2024 6:01 PM EST Pt having lower back pain and numbness on left leg that started today. Recent surgery on lumbar spine. Tingling goes down to toes. * ROX Sierra - 03/27/2024 6:01 PM EST TRIAGE NOTE I saw the patient as the Clinician in Triage and performed a brief history and physical exam, established acuity, and ordered appropriate tests to develop basic plan of care. Patient will be seen by an KENNEDI, resident and/or physician who will independently evaluate the patient. Please see subsequentprovider notes for further details and disposition. Brief HPI: In brief, Jerad Collins is a 49 y.o. female that presents for back pain. States drove to [place] on [address] which made her back pain worse. States she is having numbness to left leg. No saddle anesthesia or loss of bowel or bladder. Taking ibuprofen 800 mg and robaxin at home with no relief. Seen multiple times in multiple different emergency departments over the last week. Focused Physical exam: Alert and oriented No midline tenderness, deformities or step-offs on exam Ambulating without difficulty Plan/MDM: Plan deferred until placed in room Please see subsequent provider note for further details and disposition [facility] Work Phone: 1(114) 358-159801-03-2025 Emergency department Triage note* KASH Parker - 03/27/2024 6:01 PM EST Pt having lower back pain and numbness on left leg that started today. Recent surgery on lumbar spine. Tingling goes down to toes. [facility] Emergency department Triage note* ROX Sierra - 03/27/2024 6:01 PM EST TRIAGE NOTE I saw the patient as the Clinician in Triage and performed a brief history and physical exam, established acuity, and ordered appropriate tests to develop basic plan of care. Patient will be seen by an KENNEDI, resident and/or physician who will independently evaluate the patient. Please see subsequentprovider notes for further details and disposition. Brief HPI: In brief, Jerad Collins is a 49 y.o. female that presents for back pain. States drove to [place] on [address] which made her back pain worse. States she is having numbness to left leg. No saddle anesthesia or loss of bowel or bladder. Taking ibuprofen 800 mg and robaxin at home with no relief. Seen multiple times in multiple different emergency departments over the last week. Focused Physical exam: Alert and oriented No midline tenderness, deformities or step-offs on exam Ambulating without difficulty Plan/MDM: Plan deferred until placed in room Please see subsequent provider note for further details and disposition [facility] Work Phone: 1([phone]) 243-383801-03-2025 Physician Emergency department Note* Dalton Grey MD - 03/27/2024 6:01 PM EST HPI Chief Complaint Patient presents with Back Pain leg numbness HPI The patient has history of multiple lumbar back surgeries the latest was 02/06/2024. She saw pain management once. Since then she has been seen by multiple ER providers [facility] She has had pain since driving on a date and for the new years. She has been seen on the first the second and the third of this year. States that she has numbness of her left leg which is worsetoday. States that she has a feeling that she has trouble with urine but is able to produce urine here without difficulty. 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 Constitutional: General: She is not in acute distress. Appearance: She is well-developed. HENT: Head: Normocephalic and atraumatic. Eyes: Conjunctiva/sclera: Conjunctivae normal. Cardiovascular: Rate and Rhythm: Normal rate and regular rhythm. Heart sounds: No murmur heard. Pulmonary: Effort: Pulmonary effort is normal. No respiratory distress. Breath sounds: Normal breath sounds. Abdominal: Palpations: Abdomen is soft. Tenderness: There is no abdominal tenderness. Comments: Well-healed surgical scars, no anterior abdominal tenderness Musculoskeletal: General: No swelling. Cervical back: Neck supple. Skin: General: Skin is warm and dry. Capillary Refill: Capillary refill takes less than 2 seconds. Neurological: Mental Status: She is alert. Psychiatric: Mood and Affect: Mood normal. ED Course & MDM Diagnoses as of 03/28/24 0053 Chronic low back pain with left-sided sciatica, unspecified back pain laterality No data recorded MDM The patient has acute on chronic pain. She was complaining of similar pain when she had a wound VACon her previous surgery. She had recent surgery after that. Is continue to have pain ever since thedrive down to [place]. Is sitting rocking in bed. Appears to be in no other distress. No signs of sepsis. The patient's CT scan shows no obvious hardware loosening. Patient has improvement of her fluid collection on her back. Procedure Procedures Dalton Grey MD 03/28/24 0061 [facility] Work Phone: 1(274) 225-297601-02-2025 Hospital Discharge instructions Patient Education 03/26/2024 20:13:09 Chronic Back Pain, Iqrb-tn-Njpq Chronic Back Pain Chronic back pain is [...] pull them backward. 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 Take short [...] to your body. ?Avoid twisting. Medicines Take ayvl-tqr-vlbyjpd and prescription medicines only as told by [...] keep your pee (urine) pale yellow. ?Take frlc-fyr-tfoswvg or prescription medicines. ?Eat foods that are [...] provider. Document Revised: 10/29/2022 Document Reviewed: 10/29/2022 [employer] Patient Education 2023 [employer]. Follow Up Care 03/26/2024 18:37:38 With:MARLEE FITZPATRICK Address: [address] [place] [phone] Business (1) When:03/29/2024 19:42:05 Comments:Please follow-up with your primary care doctor for further evaluation. Please return to the ED for any new or worsening symptoms. [facility] 01-02-2025 NoteED Patient Education Note Orthopedics Chronic Back [...] them backward. ??? 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 ??? Take [...] body. ? Avoid twisting. Medicines ??? Take sshz-dkl-lshxkky and prescription medicines only as told by [...] your pee (urine) pale yellow. ? Take iayk-qzc-etdndjs or prescription medicines. ? Eat foods that [...] provider. Document Revised: 10/29/2022 Document Reviewed: 10/29/2022 [employer] Patient Education ? 2023 [employer].[facility] 03-26-2024 Emergency department Note* Crystal Huff, HOT BLASTER-WAIVER ANALYST - 03/26/2024 2:56 PM EST HPI Chief Complaint Patient presents with Back Pain Recent surgery of L4/L5 in 02/15, Pain9/10 49 old female presents emergency department, states history of chronic back pain, had surgery at the end of January. Patient states she went to [place] for the weekend for her birthday and thinks thecar ride exacerbated her back pain. States she was seen in the emergency department in [place], drove back up yesterday and is again having pain. States he does have muscle relaxers available at home.No new falls or injuries. History provided by: Patient club former used: No Patient History Past Medical History: [...] packs/day: 0.50 Average packs/day: 0.5 packs/day for 33.0 years (16.5 ttl pk-yrs) Types: Cigarettes Start date: 1991 Smokeless tobacco: Never Vaping Use Vaping status: Never Used Substance Use Topics Alcohol use: Never Drug use: Not Currently Comment: last use 2016- heroin Physical Exam ED Triage Vitals [03/26/24 1614] Temperature Heart Rate Respirations BP 36.3 C (97.3 F) 100 18 137/81 Pulse Ox Temp src Heart Rate Source Patient Position 98 % -- -- -- BP Location FiO2 [...] ED Course & MDM Diagnoses as of 03/26/24 1749 Lumbar strain, initial encounter No data recorded Gadiel Coma Scale Score: 15 (03/26/24 1616 : Charla Segovia RN) Medical Decision Making Reviewed the patient's OARRS report, she has gotten multiple prescriptions for narcotics, as well as been seen in the emergency department multiple times. Discussed IM Toradol for the discomfort, also a muscle laxer here but she states she has plenty of those available at home. Recommended she take 1 when she gets home. Recommended follow-up with either primary care or her surgeon Procedure Procedures ROX Ennis 03/26/24 1750 documented in [facility] Work Phone: 1(193) 861-874501-02-2025 Physician Emergency department Note* ROX Ennis - 03/26/2024 2:56 PM EST HPI Chief Complaint Patient presents with Back Pain Recent surgery of L4/L5 in 02/15, Pain9/10 49 old female presents emergency department, states history of chronic back pain, had surgery at the end of January. Patient states she went to [place] for the weekend for her birthday and thinks thecar ride exacerbated her back pain. States she was seen in the emergency department in [place], drove back up yesterday and is again having pain. States he does have muscle relaxers available at home.No new falls or injuries. History provided by: Patient club former used: No Patient History Past Medical History: [...] packs/day: 0.50 Average packs/day: 0.5 packs/day for 33.0 years (16.5 ttl pk-yrs) Types: Cigarettes Start date: 1991 Smokeless tobacco: Never Vaping Use Vaping status: Never Used Substance Use Topics Alcohol use: Never Drug use: Not Currently Comment: last use 2016- heroin Physical Exam ED Triage Vitals [03/26/24 1614] Temperature Heart Rate Respirations BP 36.3 C (97.3 F) 100 18 137/81 Pulse Ox Temp src Heart Rate Source Patient Position 98 % -- -- -- BP Location FiO2 [...] ED Course & MDM Diagnoses as of 03/26/24 1749 Lumbar strain, initial encounter No data recorded Gadiel Coma Scale Score: 15 (03/26/24 1616 : Charla Segovia RN) Medical Decision Making Reviewed the patient's OARRS report, she has gotten multiple prescriptions for narcotics, as well as been seen in the emergency department multiple times. Discussed IM Toradol for the discomfort, also a muscle laxer here but she states she has plenty of those available at home. Recommended she take 1 when she gets home. Recommended follow-up with either primary care or her surgeon Procedure Procedures ROX Ennis 03/26/24 1750 [facility] Work Phone: 1(969) 662-150501-02-2025 Evaluation + Plan noteExtracted from:Title: ED NoteAuthor:Gonzalo Elisa ADate:03/26/24 Acute on chronic back pain ( M54.9: Dorsalgia, unspecified) Other chronic pain (G89.29: Other chronic pain) Orders: ketorolac, 30 mg = 1 mL, Injection, IntraMuscular, Once, Stop date 03/26/24 19:39:00 EST, STAT, Start date 03/26/24 19:39:00 EST, 03/26/24 19:39:00 EST methocarbamol, 500 mg = 1 tab(s), Oral, TID, X 3 day(s), # 9 tab(s), Refills(s) 0, Pharmacy: [facility]/pharmacy #[id number], 160, cm, 03/26/24 19:03:00 EST, Height/Length Dosing, 120.4, kg, 03/26/24 19:03:00 EST, Weight Dosing naproxen, 500 mg = 1 tab(s), Oral, BID, PRN for pain, # 20 tab(s), Refills(s) 0, Pharmacy: [facility]/pharmacy #[id number], 160, cm, 03/26/24 19:03:00 EST, Height/Length Dosing, 120.4, kg, 03/26/24 19:03:00 EST, Weight Dosing oxycodone, 5 mg = 1 tab(s), Tab, Oral, Once, Stop date 03/26/24 19:39:00 EST, STAT, Start date 03/26/24 19:39:00 EST, 03/26/24 19:39:00 EST triamcinolone, 40 mg = 1 mL, Susp-Inj, IntraMuscular, Once, Stop date 03/26/24 19:39:00 EST, STAT, Start date 03/26/24 19:39:00 EST, 03/26/24 19:39:00 EST Future Scheduled Tests Laboratory* TSH With T4fr Reflex 07/17/23 * Urinalysis with Micro 07/17/23 * Lipid Panel 07/17/23 * Drug Screen Urine 07/17/23 Radiology* MA Mamm Screen w/CAD if perf and 3D Kenan 07/17/23 [facility] 12-28-2024 Hospital Discharge instructions Patient Education 03/21/2024 15:19:03 Acute Back Pain, Adult Acute Back Pain, [...] home: Managing pain, stiffness, and swelling Take vqff-ufw-mqkdjqp and prescription medicines only as told by [...] each day. 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 Take autb-orc-myasybg and prescription medicines only as told by your health care provider, and apply heat or ice as told. This information is not intended to replace advice given to you by your health care provider. Make sure you discuss any questions you have with your health care provider. Document Revised: 06/02/2021 Document Reviewed: 06/02/2021 [employer] Patient Education 2023 [employer]. Follow Up Care 03/21/2024 12:37:54 With:MARLEE FITZPATRICK Address: [address] [place], [place] [phone]- Business (1) When:2024 15:03:20 [facility] 12-28-2024 NoteED Patient Education Note Orthopedics Acute Back [...] Managing pain, stiffness, and swelling ??? Take yogd-ndl-phkixmw and prescription medicines only as told by [...] day. ??? 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 ??? Y (more content not included)...[facility]12-[facility] Emergency department Note* Mayra Post PA-C - 03/19/2024 5:44 PM EST HPI Chief Complaint Patient presents with Fall Back Pain 48-year-old female with a history of low back pain requiring surgery presenting to the ER today with pain in her lower back after a fall yesterday. Patient tells me that she slipped stepping on some wrapping paper and fell onto her lower back. She has been able to walk but has had pain since then and she is worried that she had surgery in this area recently. She denies any her head or LOC and states she is not on a blood thinner. She states the pain stays in her back and does not radiate anywhere. She is not having difficulty urinating, painful urination or blood in the urine and she denies loss of bowel bladder control or saddle anesthesias. She denies any mid back pain or neck pain. She st ates that she did brace her fall with her right elbow and it feels a little bit sore but she is able to move and is not having any severe pain to the area or bruising or swelling. She denies any further complaints at this time. History provided by: Patient Patient History Past Medical History: Diagnosis Date [...] packs/day: 0.50 Average packs/day: 0.5 packs/day for 33.0 years (16.5 ttl pk-yrs) Types: Cigarettes Start date: 1991 Smokeless tobacco: Never Vaping Use Vaping status: Never Used Substance Use Topics Alcohol use: Never Drug use: Not Currently Comment: last use 2016- heroin Physical Exam ED Triage Vitals [03/19/24 1755] Temperature Heart Rate Respirations BP 36.4 C (97.5 F) (!) 103 18 (!) 170/97 Pulse Ox Temp src Heart Rate Source Patient Position 98 % -- -- -- BP Location FiO2 (%) -- -- Physical Exam Constitutional: General: She is not in acute distress. Eyes: Conjunctiva/sclera: Conjunctivae normal. Cardiovascular: Rate and Rhythm: Normal rate and regular rhythm. Pulses: Normal pulses. Heart sounds: Normal heart sounds. Comments: Distal pulses intact and symmetric. Pulmonary: Effort: Pulmonary effort is normal. Breath sounds: Normal breath sounds. Abdominal: Tenderness: There is no right CVA tenderness or left CVA tenderness. Musculoskeletal: Comments: Tenderness diffusely of the lower lumbar spinal and paraspinal regions without step-offs,edema, erythema or ecchymosis. Well-healing surgical incisions. 5/5 strength and sensation to extremities without bony tenderness or bony deformity. No midline tenderness, step-offs, paraspinal tenderness or signs of trauma throughout the cervical and thoracic spines. NVI Skin: General: Skin is warm. Neurological: Mental Status: She is alert. Comments: Speech normal ED Course & MDM Diagnoses as of 03/19/242243 Bilateral low back pain without sciatica, unspecified chronicity Fall, initial encounter No data recorded [place] Coma Scale Score: 15 (03/19/24 1753 : Mora Nelson RN) Medical Decision Making 48-year-old female presenting to the ER today with lower back pain after a fall yesterday when she stepped on wrapping paper, slipped and fell to the ground. She did brace her fall with her right elbow and landed on her lower back. She denies LOC or use of blood thinners. She took pain medication without relief so she came to the ER. She denies loss of bowel or bladder control or saddle anesthesias. The pain does not radiate and she is not having any difficulty urinating or hematuria. She denies any further complaints and arrives afebrile, tachycardic and hypertensive with otherwise stable vital signs. Patient is nontoxic-appearing and resting without signs of acute distress. On my exam owens rashawn heart RRR, lungs are clear and there is no CVA tenderness. She was endorsing that she fell ontoher right elbow however range of motion is intact to the elbow and there is no bony tenderness or signs of trauma. She is neurovascular intact with good distal pulses. She is tender to the lower lumbar spinal and paraspinal regions without step-offs or obvious signs of trauma or infection. She doeshave well-healing surgical incisions. She does not have any further tenderness or signs of trauma on exam. Pain medication is ordered as well as CT L-spine. CT of the L-spine today shows no acute fracture or malalignment. There are degenerative changes butno other acute abnormalities. On reassessment patient is resting comfortably and vital signs have improved. I did discuss results with him today, diagnosis and treatment plan home-going and the need for follow-up with her surgeon. She states she will try calling them again tomorrow to arrange a follow-up appointment. She would like something to go home with for pain and she states that she only has ibuprofen. On review of the patient's OARRS report she did have an Rx earlier this month. I will give her a few oxycodone to help with her acute pain and she can follow-up with her surgeon. I did discuss warning signs to return to the ED and she expressed understanding and agreed with the plan ofcare today. Labs Reviewed - No data to display CT lumbar spine wo IV contrast Final Result No acute fracture or malalignment. Degenerative changes as described predominantly at L4-5 and L5-S1. Signed by Arnoldo Lopez, DO Procedure Procedures Mayra Post PA-C 03/19/24 2246 documented in this [facility] Work Phone: 1(203) 572-506012-26-2024 Physician Emergency department Note* Mayra Post PA-C - 03/19/2024 5:44 PM EST HPI Chief Complaint Patient presents with Fall Back Pain 48-year-old female with a history of low back pain requiring surgery presenting to the ER today with pain in her lower back after a fall yesterday. Patient tells me that she slipped stepping on some wrapping paper and fell onto her lower back. She has been able to walk but has had pain since then and she is worried that she had surgery in this area recently. She denies any her head or LOC and states she is not on a blood thinner. She states the pain stays in her back and does not radiate anywhere. She is not having difficulty urinating, painful urination or blood in the urine and she denies loss of bowel bladder control or saddle anesthesias. She denies any mid back pain or neck pain. She st ates that she did brace her fall with her right elbow and it feels a little bit sore but she is able to move and is not having any severe pain to the area or bruising or swelling. She denies any further complaints at this time. History provided by: Patient Patient History Past Medical History: Diagnosis Date [...] packs/day: 0.50 Average packs/day: 0.5 packs/day for 33.0 years (16.5 ttl pk-yrs) Types: Cigarettes Start date: 1991 Smokeless tobacco: Never Vaping Use Vaping status: Never Used Substance Use Topics Alcohol use: Never Drug use: Not Currently Comment: last use 2015- heroin Physical Exam ED Triage Vitals [03/19/24 1755] Temperature Heart Rate Respirations BP 36.4 C (97.5 F) (!) 103 18 (!) 170/97 Pulse Ox Temp src Heart Rate Source Patient Position 98 % -- -- -- BP Location FiO2 (%) -- -- Physical Exam Constitutional: General: She is not in acute distress. Eyes: Conjunctiva/sclera: Conjunctivae normal. Cardiovascular: Rate and Rhythm: Normal rate and regular rhythm. Pulses: Normal pulses. Heart sounds: Normal heart sounds. Comments: Distal pulses intact and symmetric. Pulmonary: Effort: Pulmonary effort is normal. Breath sounds: Normal breath sounds. Abdominal: Tenderness: There is no right CVA tenderness or left CVA tenderness. Musculoskeletal: Comments: Tenderness diffusely of the lower lumbar spinal and paraspinal regions without step-offs,edema, erythema or ecchymosis. Well-healing surgical incisions. 5/5 strength and sensation to extremities without bony tenderness or bony deformity. No midline tenderness, step-offs, paraspinal tenderness or signs of trauma throughout the cervical and thoracic spines. NVI Skin: General: Skin is warm. Neurological: Mental Status: She is alert. Comments: Speech normal ED Course & MDM Diagnoses as of 03/19/244 Bilateral low back pain without sciatica, unspecified chronicity Fall, initial encounter No data recorded [place] Coma Scale Score: 15 (03/19/24 1753 : Mora Nelson RN) Medical Decision Making 48-year-old female presenting to the ER today with lower back pain after a fall yesterday when she stepped on wrapping paper, slipped and fell to the ground. She did brace her fall with her right elbow and landed on her lower back. She denies LOC or use of blood thinners. She took pain medication without relief so she came to the ER. She denies loss of bowel or bladder control or saddle anesthesias. The pain does not radiate and she is not having any difficulty urinating or hematuria. She denies any further complaints and arrives afebrile, tachycardic and hypertensive with otherwise stable vital signs. Patient is nontoxic-appearing and resting without signs of acute distress. On my exam owens rashawn heart RRR, lungs are clear and there is no CVA tenderness. She was endorsing that she fell ontoher right elbow however range of motion is intact to the elbow and there is no bony tenderness or signs of trauma. She is neurovascular intact with good distal pulses. She is tender to the lower lumbar spinal and paraspinal regions without step-offs or obvious signs of trauma or infection. She doeshave well-healing surgical incisions. She does not have any further tenderness or signs of trauma on exam. Pain medication is ordered as well as CT L-spine. CT of the L-spine today shows no acute fracture or malalignment. There are degenerative changes butno other acute abnormalities. On reassessment patient is resting comfortably and vital signs have improved. I did discuss results with him today, diagnosis and treatment plan home-going and the need for follow-up with her surgeon. She states she will try calling them again tomorrow to arrange a follow-up appointment. She would like something to go home with for pain and she states that she only has ibuprofen. On review of the patient's OARRS report she did have an Rx earlier this month. I will give her a few oxycodone to help with her acute pain and she can follow-up with her surgeon. I did discuss warning signs to return to the ED and she expressed understanding and agreed with the plan ofcare today. Labs Reviewed - No data to display CT lumbar spine wo IV contrast Final Result No acute fracture or malalignment. Degenerative changes as described predominantly at L4-5 and L5-S1. Signed by Arnoldo Lopez, DO Procedure Procedures Mayra Post PA-C 12/2245 [facility] Work Phone: 1([phone]) 292-754512-25-2024 Hospital Discharge instructions Patient Education 03/18/2024 19:23:20 Acute Back Pain, Adult Acute Back Pain, [...] home: Managing pain, stiffness, and swelling Take yffn-ojo-udjuwqv and prescription medicines only as told by [...] each day. 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 Take nwrz-vvq-twkbloc and prescription medicines only as told by your health care provider, and apply heat or ice as told. This information is not intended to replace advice given to you by your health care provider. Make sure you discuss any questions you have with your health care provider. Document Revised: 06/02/2021 Document Reviewed: 06/02/2021 [employer] Patient Education 2023 [employer]. Follow Up Care 03/18/2024 18:12:27 With:MARLEE FITZPATRICK Address: [address] [place], [place] [address] Business (1) When:03/21/2024 19:23:02 Comments:Call to schedule a follow-up appointment with your back surgeon. Use the Flexeril as needed for pain management. Return to the ED with any new or worsening symptoms. [facility] 12-25-2024 NoteED Patient Education Note Orthopedics Acute Back [...] Managing pain, stiffness, and swelling ??? Take lxql-rxl-yxflogq and prescription medicines only as told by [...] day. ??? 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 ??? Y (more content not included)...[facility]12-17-2024 History of Present illness Narrative* Judah Woodard MD - 03/10/2024 2:15 PM EST FUV - 6-weeks post op visit s/p left L4-5 MIS discectomy done on 02/06/24 for Lumbar disc herniation with radiculopathy. (She has prior history of chronic low back pain, neuropathic pain in bilateral lower extremities, chronic left lower extremity radiculopathy, HCV, GERD, depression, bipolar disease, 09/23/23 s/p percutaneous SCS placement, c/b wound dehiscence 10/14/23 s/p wound washout and SCC and generator removal). Her radiating left leg pain and numbness has gotten significantly better and she was overall doing well until yesterday when she fell. She has possible nondiplaced fracture of S2 on CT. She has low back pain still that did get better somewhat after most recent MIS discectomy as well, but this stillbothers her a lot. Gets worse with standing, sitting too long, bending. She really has no leg symptoms anymore. She has full strength everywhere and her incision has healed nicely. She is planning to follow up with Dr. Adams in functional/pain neurosurgery for her chronic low back pain and what other options there are and consider reimplantation of SCS. Judah Woodard MD documented in this [facility] Work Phone: 1([phone]) 280-730912-16-2024 Hospital Discharge instructions* Discharge Instructions* Jarocho Delatorre DO - 03/09/2024 9:41 PM EST Keep your appointment with your neurosurgeon tomorrow. The CT scan of the pelvis reveals evidence of a suspected nondisplaced sacral fracture. * Attachments The following attachments cannot be sent through Care Everywhere. * Pelvic fracture (Malagasy) * Low back pain in adults (Malagasy) documented in this [facility] Work Phone: 1([phone]) 422-996512-10-2024 History and physical note* Iveth Burger, HOT BLASTER-WAIVER ANALYST - 03/03/2024 10:00 AM EST History Of Present Illness Jerad Collins is a 48 y.o. female presenting for follow up after surgery done on 02/06/2024. She is known in this clinic because of chronic back pain. She recently had discectomy posterior lumbar L4-L5 (minimally invasive) by Dr. Woodard, done on 02/06/2024. She also reports that she fell about a week ago, and was found to have broken one rib, left side. Her level of pain today is about 8/10 mostly on that left side rib cage. OARRS obtained and reviewed, no abuse or misuse with prescribed medication noted. In the past she was tried on Lyrica which gave her a lot of swelling, Gabapentin triggered migraineheadaches. She is able to perform activities of daily living with some difficulty because of pain. Past Medical History Past Medical History: Diagnosis [...] smoking about 32 years ago. She has a16.5 pack-year smoking history. She has never used smokeless tobacco. She reports that she does notcurrently use drugs. She reports that she does not drink alcohol. Family History Family History Problem Relation Name Age of Onset Lung disease Mother COPD Mother Lung disease Father Lung cancer Father Heart disease Father Allergies Penicillins, Gabapentin, Lyrica [pregabalin], Tylenol [acetaminophen], and Nabumetone Review of Systems Review of systems x 10 is negative. Recent fall on her side about a week ago, resulted on one broken rib left side. No recent change in medical condition reported. No recent weakness reported. Still able to control bowel and bladder function. Denies any problem with constipation. Denies fever, cough, shortness of breath recently. No interval change with medication/health issues reported. Denies opioids diversion and abuse. Denies overuse of pain medications. Physical Exam Awake,alert, no acute distress, appropriate. Spine is of normal curvature. Full ROM on all 4 extremities, sensation and motor intact, no vascular compromise. No pedal edema, normal gait. Skin warm, dry, intact, turgor is normal. Denies any numbness, tingling. Incision line back lumbar area, clean, dry, well approximated, no swelling, minimal redness noted. Last Recorded Vitals Blood pressure 166/89, pulse 99, temperature 35.6 C (96.1 F). She takes Coreg as prescribed by another Provider. Relevant Results No recent imaging noted. Assessment/Plan I have personally reviewed the OARRS report for this patient. I have considered the risk of abuse, dependence, addiction and diversion. I believe that it is clinically appropriate for this patient to be prescribed this medication basedon documented diagnosis. Discussed case with Dr. Melgoza, he recommends Percocet 5/325 mg TID for pain for 2 weeks. Explained above plan to this patient. Follow up in 3 months time or as needed basis Explained plan to this patient, and patient verbalized understanding and agreement with the plan. If there is questions or concerns, please feel free to contact me to clarify at [phone], M-F 8-4PM. Chronic back pain associated with lumbar disc displacement, lumbar radiculopathy, recent back surgery Discectomy L4-L5 done on 02/06/2024. Pain in in the left side rib cage associated with a broken rib d/t recent fall. I spent 34 minutes in the professional and overall care of this patient. ROX Renee [facility] Work Phone: 1([phone]) 190-945312-10-2024 History and physical note* Iveth Burgre, HOT BLASTER-WAIVER ANALYST - 03/03/2024 10:00 AM EST History Of Present Illness Jerad Collins is a 48 y.o. female presenting for follow up after surgery done on 02/06/2024. She is known in this clinic because of chronic back pain. She recently had discectomy posterior lumbar L4-L5 (minimally invasive) by Dr. Woodard, done on 02/06/2024. She also reports that she fell about a week ago, and was found to have broken one rib, left side. Her level of pain today is about 8/10 mostly on that left side rib cage. OARRS obtained and reviewed, no abuse or misuse with prescribed medication noted. In the past she was tried on Lyrica which gave her a lot of swelling, Gabapentin triggered migraineheadaches. She is able to perform activities of daily living with some difficulty because of pain. Past Medical History Past Medical History: Diagnosis [...] smoking about 32 years ago. She has a16.5 pack-year smoking history. She has never used smokeless tobacco. She reports that she does notcurrently use drugs. She reports that she does not drink alcohol. Family History Family History Problem Relation Name Age of Onset Lung disease Mother COPD Mother Lung disease Father Lung cancer Father Heart disease Father Allergies Penicillins, Gabapentin, Lyrica [pregabalin], Tylenol [acetaminophen], and Nabumetone Review of Systems Review of systems x 10 is negative. Recent fall on her side about a week ago, resulted on one broken rib left side. No recent change in medical condition reported. No recent weakness reported. Still able to control bowel and bladder function. Denies any problem with constipation. Denies fever, cough, shortness of breath recently. No interval change with medication/health issues reported. Denies opioids diversion and abuse. Denies overuse of pain medications. Physical Exam Awake,alert, no acute distress, appropriate. Spine is of normal curvature. Full ROM on all 4 extremities, sensation and motor intact, no vascular compromise. No pedal edema, normal gait. Skin warm, dry, intact, turgor is normal. Denies any numbness, tingling. Incision line back lumbar area, clean, dry, well approximated, no swelling, minimal redness noted. Last Recorded Vitals Blood pressure 166/89, pulse 99, temperature 35.6 C (96.1 F). She takes Coreg as prescribed by another Provider. Relevant Results No recent imaging noted. Assessment/Plan I have personally reviewed the OARRS report for this patient. I have considered the risk of abuse, dependence, addiction and diversion. I believe that it is clinically appropriate for this patient to be prescribed this medication basedon documented diagnosis. Discussed case with Dr. Melgoza, he recommends Percocet 5/325 mg TID for pain for 2 weeks. Explained above plan to this patient. Follow up in 3 months time or as needed basis Explained plan to this patient, and patient verbalized understanding and agreement with the plan. If there is questions or concerns, please feel free to contact me to clarify at [phone], M-F 8-4PM. Chronic back pain associated with lumbar disc displacement, lumbar radiculopathy, recent back surgery Discectomy L4-L5 done on 02/06/2024. Pain in in the left side rib cage associated with a broken rib d/t recent fall. I spent 34 minutes in the professional and overall care of this patient. ROX Renee documented in this [facility] Work Phone: 1([phone]) 557-286412-10-2024 History of Present illness Narrative* Camille Villatoro, LORETA - 03/03/2024 10:00 AM EST Patient states 8/10 pain in her left side and back documented in this [facility] Work Phone: 1([phone]) 625-200512-09-2024 History of Present illness Narrative* Marlee Fitzpatrick MD - 03/02/2024 9:20 AM EST Subjective Patient ID: Karina Tracy is a 48 y.o. female who presents for Establish Care (Pt here to Establish ERfollow up). HPI patient here to get established. She had recent back surgery done for lumbar radiculopathy and disc herniation she also sees pain management for her chronic lumbar radiculopathy she has history of pain stimulator in the past which got infected and she does not have any at this point her blood pressure remains elevated she takes ibuprofen which will not help but she needs to follow DASH diet and work on lifestyle modification and lose weight. She has history of stage III hepatic fibrosis shehas history of hepatitis C and was treated couple years ago currently she is hepatitis C free Review of Systems HENT: Negative. Respiratory: Negative. Cardiovascular: Negative. Gastrointestinal: Negative. Genitourinary: Negative. Musculoskeletal: See HPI Neurological: Negative. All other systems reviewed and are negative. Objective BP 148/74 Pulse 68 Temp 36.3 C (97.4 F) (Temporal) Ht 1.6 m (5' 3 ) Wt 116 kg (256 lb) BMI 45.35 kg/m Physical Exam Vitals reviewed. Constitutional: Appearance: Normal appearance. HENT: Head: Normocephalic and atraumatic. Eyes: Pupils: Pupils are equal, round, and reactive to light. Cardiovascular: Rate and Rhythm: Normal rate and regular rhythm. Pulmonary: Effort: Pulmonary effort is normal. Breath sounds: Normal breath sounds. Musculoskeletal: General: No swelling. Right lower leg: No edema. Left lower leg: No edema. Lymphadenopathy: Cervical: No cervical adenopathy. Neurological: General: No focal deficit present. Mental Status: She is alert and oriented to person, place, and time. Mental status is at baseline. Cranial Nerves: No cranial nerve deficit. Psychiatric: Mood and Affect: Mood normal. Behavior: Behavior normal. Thought Content: Thought content normal. Assessment/Plan Problem List Items Addressed This Visit ICD-10-CM Current smoker F17.200 Morbid obesity (Multi) E66.01 Hepatic fibrosis, advanced fibrosis K74.02 Chronic low back pain without sciatica, unspecified back pain laterality M54.50, G89.29 Other Visit Diagnoses Codes Primary hypertension - Primary I10 Relevant Medications carvedilol (Coreg) 6.25 mg tablet We advised DASH diet we also advise increase physical activity avoid nonsteroidals she will follow-up with hepatology for her fatty liver. We initiated low-dose beta-ric for her blood pressure patient used to be on fluoxetine for depression but does not take it anymore she says she does not need take she is on Prilosec for acid reflux. She smokes half pack of cigarettes daily we strongly advised her to quit smoking she has time 48 and should get colonoscopy for colon cancer screening next year we also recommend annual mammograms for all women starting at age 40. documented in this [facility] Work Phone: 1(892) 327-969712-07-2024 Hospital Discharge instructions Patient Education 02/29/2024 19:38:06 Rib Fracture, Jxbl-mu-Hobb Rib Fracture A rib fracture is a break or crack in one of the bones of the ribs. The ribs are like a cage that goes around your upper chest. A broken or cracked rib is often painful, but most do not cause other problems. Most rib fractures usually heal on their own in 1 3 months. What are the causes? Doing movements over and over again with a lot of force, such as pitching a baseball or having a very bad cough. A direct hit to the chest. Cancer that has spread to the bones. What are the signs or symptoms? Pain when you breathe in or cough. Pain when someone presses on the injured area. Feeling short of breath. How is this treated? Treatment depends on how bad the fracture is. In general: Most rib fractures usually heal on their own in 1 3 months. Healing may take longer if you have a cough or are doing activities that make the injury worse. While you heal, you may be given medicines to control pain. You will also be taught deep breathing exercises. Very bad injuries may require a stay at the hospital or surgery. Follow these instructions at home: Managing pain, stiffness, and swelling If told, [...] greater risk of damage to the area. Take lexu-tki-wvqajto and prescription medicines only as told by your doctor. Activity Avoid activities that cause pain to the injured area. Protect your injured area. Slowly increase activity as told by your doctor. General instructions Do deep breathing exercises as told by your doctor. You may be told to: ?Take deep breaths many times a day. ?Cough several times a day while hugging a pillow. ?Use a device (incentive spirometer) to do deep breathing many times a day. Drink enough fluid to keep your pee (urine) clear or pale yellow. Do not wear a rib belt or binder. Keep all follow-up visits. Contact a doctor if: You have a fever. Get help right away if: You have trouble breathing. You are short of breath. You cannot stop coughing. You cough up thick or bloody spit. You feel like you may vomit (nauseous), vomit, or have belly (abdominal) pain. Your pain gets worse and medicine does not help. These symptoms may be an emergency. Get help right away. Call your local emergency services (911 int [place] Do not wait to see if the symptoms will go away. Do not drive yourself to the hospital. Summary A rib fracture is a break or crack in one of the bones of the ribs. Apply ice to the injured area and take medicines for pain as told by your doctor. Take deep breaths and cough several times a day. Hug a pillow every time you cough. This information is not intended to replace advice given to you by your health care provider. Make sure you discuss any questions you have with your health care provider. Document Revised: 07/01/2020 Document Reviewed: 07/01/2020 [employer] Patient Education 2023 [employer] Follow Up Care 02/29/2024 18:30:43 With:MARLEE PINOILLON Address: [address] [place], [place] [id number]- Business (1) When:03/03/2024 19:37:03 Comments:Call to schedule follow-up appointment with your family physician in the next 2 to 3 days. Continueto use your incentive spirometer along with the Percocet, lidocaine patches, and Flexeril. Turn to the ED with any new or worsening symptoms. [facility] 12-07-2024 NoteED Patient Education Note Orthopedics Rib Fracture A rib fracture is a break or crack in one of the bones of the ribs. The ribs are like a cage that goes around your upper chest. A broken or cracked rib is often painful, but most do not cause other problems. Most rib fractures usually heal on their own in 1?3 months. What are the causes? Doing movements over and over again with a lot of force, such as pitching a baseball or having a very bad cough. ??? A direct hit to the chest. ??? Cancer that has spread to the bones. What are the signs or symptoms? Pain when you breathe in or cough. ??? Pain when someone presses on the injured area. ??? Feeling short of breath. How is this treated? Treatment depends on how bad the fracture is. In general: ??? Most rib fractures usually heal on their own in 1?3 months. ??? Healing may take longer if you have a cough or are doing activities that make the injury worse. ??? While you heal, you may be given medicines to control pain. ??? You will also be taught deep breathing exercises. ??? Very bad injuries may require a stay at the hospital or surgery. Follow these instructions at home: Managing pain, stiffness, and swelling ??? If told, put ice on the injured area. To do this: ? Put ice in a plastic bag. ? Place a towel between your skin and the bag. ? Leave the ice on for 20 minutes, 2?3 times a day. ? Take off the ice if your skin turns bright red. This is very important. If you cannot feel pain, heat, or cold, you have a greater risk of damage to the area. ??? Take dpzb-qsf-fycauzr and prescription medicines only as told by your doctor. Activity ??? Avoid activities that cause pain to the injured area. Protect your injured area. ??? Slowly increase activity as told by your doctor. General instructions ??? Do deep breathing exercises as told by your doctor. You may be told to: ? Take deep breaths many times a day. ? Cough several times a day while hugging a pillow. ? Use a device (incentive spirometer) to do deep breathing many times a day. ??? Drink enough fluid to keep your pee (urine) clear or pale yellow. ??? Do not wear a rib belt or binder. ??? Keep all follow-up visits. Contact a doctor if: ??? You have a fever. Get help right away if: ??? You have trouble breathing. ??? You are short of breath. ??? You cannot stop coughing. ??? You cough up thick or bloody spit. ??? You feel like you may vomit (nauseous), vomit, or have belly (abdominal) pain. ??? Your pain gets worse and medicine does not help. These symptoms may be an emergency. Get help right away. Call your local emergency services (911 int [place] ??? Do not wait to see if the symptoms will go away. ??? Do not drive yourself to the hospital. Summary ??? A rib fracture is a break or crack in one of the bones of the ribs. ??? Apply ice to the injured area and take medicines for pain as told by your doctor. ??? Take deep breaths and cough several times a day. Hug a pillow every time you cough. This information is not intended to replace advice given to you by your health care provider. Make sure you discuss any questions you have with your health care provider. Document Revised: 07/01/2020 Document Reviewed: 07/01/2020 [email or web address] Patient Education ? 2023 [employer] 02-27-2024 Hospital Discharge instructions Patient Education 02/27/2024 13:58:26 Rib Fracture, Cxrs-zi-Lgrq Rib Fracture A rib fracture is a break or crack in one of the bones of the ribs. The ribs are like a cage that goes around your upper chest. A broken or cracked rib is often painful, but most do not cause other problems. Most rib fractures usually heal on their own in 1 3 months. What are the causes? Doing movements over and over again with a lot of force, such as pitching a baseball or having a very bad cough. A direct hit to the chest. Cancer that has spread to the bones. What are the signs or symptoms? Pain when you breathe in or cough. Pain when someone presses on the injured area. Feeling short of breath. How is this treated? Treatment depends on how bad the fracture is. In general: Most rib fractures usually heal on their own in 1 3 months. Healing may take longer if you have a cough or are doing activities that make the injury worse. While you heal, you may be given medicines to control pain. You will also be taught deep breathing exercises. Very bad injuries may require a stay at the hospital or surgery. Follow these instructions at home: Managing pain, stiffness, and swelling If told, [...] greater risk of damage to the area. Take idaf-bzi-ujlmykh and prescription medicines only as told by your doctor. Activity Avoid activities that cause pain to the injured area. Protect your injured area. Slowly increase activity as told by your doctor. General instructions Do deep breathing exercises as told by your doctor. You may be told to: ?Take deep breaths many times a day. ?Cough several times a day while hugging a pillow. ?Use a device (incentive spirometer) to do deep breathing many times a day. Drink enough fluid to keep your pee (urine) clear or pale yellow. Do not wear a rib belt or binder. Keep all follow-up visits. Contact a doctor if: You have a fever. Get help right away if: You have trouble breathing. You are short of breath. You cannot stop coughing. You cough up thick or bloody spit. You feel like you may vomit (nauseous), vomit, or have belly (abdominal) pain. Your pain gets worse and medicine does not help. These symptoms may be an emergency. Get help right away. Call your local [facility] Do not wait to see if the symptoms will go away. Do not drive yourself to the hospital. Summary A rib fracture is a break or crack in one of the bones of the ribs. Apply ice to the injured area and take medicines for pain as told by your doctor. Take deep breaths and cough several times a day. Hug a pillow every time you cough. This information is not intended to replace advice given to you by your health care provider. Make sure you discuss any questions you have with your health care provider. Document Revised: 07/01/2020 Document Reviewed: 07/01/2020 [employer] Patient Education 2023 [employer] Follow Up Care 02/27/2024 12:16:41 With:DEANGORDO AMARI Address: [address] [place], [place] [id number] Business (1) When:03/01/2024 13:54:54 Comments:Call the office of your primary care [...] symptoms.Seek immediate medical attention if you develop: worsening shortness of breath, difficulty breathing, chest pain,nausea, vomiting, weakness, numbness, tingling, excessive sweating, loss of motion in your arms or legs, or any new or worsening symptoms. [facility] 12-05-2024 NoteED Patient Education Note Orthopedics Rib Fracture A rib fracture is a break or crack in one of the bones of the ribs. The ribs are like a cage that goes around your upper chest. A broken or cracked rib is often painful, but most do not cause other problems. Most rib fractures usually heal on their own in 1?3 months. What are the causes? Doing movements over and over again with a lot of force, such as pitching a baseball or having a very bad cough. ??? A direct hit to the chest. ??? Cancer that has spread to the bones. What are the signs or symptoms? Pain when you breathe in or cough. ??? Pain when someone presses on the injured area. ??? Feeling short of breath. How is this treated? Treatment depends on how bad the fracture is. In general: ??? Most rib fractures usually heal on their own in 1?3 months. ??? Healing may take longer if you have a cough or are doing activities that make the injury worse. ??? While you heal, you may be given medicines to control pain. ??? You will also be taught deep breathing exercises. ??? Very bad injuries may require a stay at the hospital or surgery. Follow these instructions at home: Managing pain, stiffness, and swelling ??? If told, put ice on the injured area. To do this: ? Put ice in a plastic bag. ? Place a towel between your skin and the bag. ? Leave the ice on for 20 minutes, 2?3 times a day. ? Take off the ice if your skin turns bright red. This is very important. If you cannot feel pain, heat, or cold, you have a greater risk of damage to the area. ??? Take sfwe-xsx-zyswdtb and prescription medicines only as told by your doctor. Activity ??? Avoid activities that cause pain to the injured area. Protect your injured area. ??? Slowly increase activity as told by your doctor. General instructions ??? Do deep breathing exercises as told by your doctor. You may be told to: ? Take deep breaths many times a day. ? Cough several times a day while hugging a pillow. ? Use a device (incentive spirometer) to do deep breathing many times a day. ??? Drink enough fluid to keep your pee (urine) clear or pale yellow. ??? Do not wear a rib belt or binder. ??? Keep all follow-up visits. Contact a doctor if: ??? You have a fever. Get help right away if: ??? You have trouble breathing. ??? You are short of breath. ??? You cannot stop coughing. ??? You cough up thick or bloody spit. ??? You feel like you may vomit (nauseous), vomit, or have belly (abdominal) pain. ??? Your pain gets worse and medicine does not help. These symptoms may be an emergency. Get help right away. Call your local emergency services (911 inthe [place] ??? Do not wait to see if the symptoms will go away. ??? Do not drive yourself to the hospital. Summary ??? A rib fracture is a break or crack in one of the bones of the ribs. ??? Apply ice to the injured area and take medicines for pain as told by your doctor. ??? Take deep breaths and cough several times a day. Hug a pillow every time you cough. This information is not intended to replace advice given to you by your health care provider. Make sure you discuss any questions you have with your health care provider. Document Revised: 07/01/2020 Document Reviewed: 07/01/2020 [employer] Patient Education ? 2023 [employer] 02-27-2024 Evaluation + Plan noteExtracted from:Title:ED NoteAuthor:Nikhil Tubbs DODate:02/27/24 Rib fracture (S22.39XA: Frac ture of one rib, unspecified side, initial encounter for closed fracture) Ordered: acetaminophen-oxycodone, 1 tab(s), Oral, q6hr Pain 8-10 for 3 day(s), 12 tab(s), Refill(s) 0, [facility]pharmacy #[id number], 160, cm, 02/27/24 12:36:00 EST, Height/Length Dosing, 115, kg, 02/27/24 12:36:00 EST,Weight Dosing Orders: acetaminophen-oxycodone, 1 tab(s), Tab, Oral, Once, Stop date 02/27/24 13:53:00 EST, STAT, Start date 02/27/24 13:53:00 EST cyclobenzaprine, 5 mg = 1 tab(s), Oral, TID, PRN Muscle pain, X 7 day(s), # 21 tab(s), Refills(s) 0, Pharmacy: [facility]/pharmacy #[id number], 160, cm, 02/27/24 12:36:00 EST, Height/Length Dosing, 115, kg, 02/27/24 12:36:00 EST, Weight Dosing lidocaine topical, 1 patch(es), Topical, Daily, 7 EA, Refill(s) 0, apply 12 hours on and 12 hours off daily, [id number], 160, cm, 02/27/24 12:36:00 EST, Height/Length Dosing, 115, kg, 02/27/24 12:36:00 EST, Weight Dosing Future Scheduled Tests Laboratory* TSH With T4fr Reflex 07/17/23 * Urinalysis with Micro 07/17/23 * Lipid Panel 07/17/23 * Drug Screen Urine 07/17/23 Radiology* MA Mamm Screen w/CAD if perf and 3D Kenan 07/17/23 [facility] 12-04-2024 Hospital Discharge instructions Patient Education 02/26/2024 17:17:16 Rib Contusion Rib Contusion A rib contusion is a deep bruise on the rib area. Contusions are the result of a blunt trauma that causes bleeding and injury to the tissues under the skin. A rib contusion may involve bruising of the ribs and of the skin and muscles in the area. The skin over the contusion may turn blue, purple, or yellow. Minor injuries result in a painless contusion. More severe contusions may be painful and swollen for a few weeks. What are the causes? This condition is usually caused by a hard, direct hit to an area of the body. This often occurs while playing contact sports. What are the signs or symptoms? Symptoms of this condition include: Swelling and redness of the injured area. Discoloration of the injured area. Tenderness and soreness of the injured area. Pain with or without movement. Pain when breathing in. How is this diagnosed? This condition may be diagnosed based on: Your symptoms and medical history. A physical exam. Imaging tests such as an X-ray, CT scan, or MRI to determine if there were internal injuries or broken bones (fractures). How is this treated? This condition may be treated with: Rest. This is often the best treatment for a rib contusion. Ice packs. This reduces swelling and inflammation. Deep-breathing exercises. These may be recommended to reduce the risk for lung collapse and pneumonia. Medicines. Ibfb-otv-mvsjqof or prescription medicines may be given to control pain. Injection of a numbing medicine around the nerve near your injury (nerve block). Follow these instructions at home: Medicines Take ptyo-bsk-elpouxz and prescription medicines only as told by your health care provider. Ask your health care provider if the medicine prescribed to you: ?Requires you to avoid driving or using machinery. ?Can cause constipation. You may need to take these actions to prevent or treat constipation: ?Drink enough fluid to keep your urine pale yellow. ?Take qrpa-sqw-cpbvsxb or prescription medicines. ?Eat foods that are high in fiber, such as beans, whole grains, and fresh fruits and vegetables. ?Limit foods that are high in fat and processed sugars, such as fried or sweet foods. Managing pain, stiffness, and swelling If directed, put ice on the injured area. To do this: Put ice in a plastic bag. Place a towel between your skin and the bag. Leave the ice on for 20 minutes, 2 3 times a day. Remove the ice if your skin turns bright red. This is very important. If you cannot feel pain, heat, or cold, you have a greater risk of damage to the area. Activity Rest the injured area. Avoid strenuous activity and any activities or movements that cause pain. Be careful during activities, and avoid bumping the injured area. Do not lift anything that is heavier than 5 lb (2.3 kg), or the limit that you are told, until yourhealth care provider says that it is safe. General instructions Do not use any products that contain nicotine or tobacco, such as cigarettes, e- cigarettes, and chewing tobacco. These can delay healing. If you need help quitting, ask your health care provider. Do deep-breathing exercises as told by your health care provider. If you were given an incentive spirometer, use it every 1 2 hours while you are awake, or as recommended by your health care provider. This device measures how well you are filling your lungs with each breath. Keep all follow-up visits. This is important. Contact a health care provider if you have: Increased bruising or swelling. Pain that is not controlled with treatment. A fever. Get help right away if you: Have difficulty breathing or shortness of breath. Develop a continual cough, or you cough up thick or bloody mucus from your lungs (sputum). Feel nauseous or you vomit. Have pain in your abdomen. These symptoms may represent a serious problem that is an emergency. Do not wait to see if the symptoms will go away. Get medical help right away. Call your local emergency services (911 in the [place] Do not drive yourself to the hospital. Summary A rib contusion is a deep bruise on your rib area. Contusions are the result of a blunt trauma thatcauses bleeding and injury to the tissues under the skin. The skin over the contusion may turn blue, purple, or yellow. Minor injuries may cause a painless contusion. More severe contusions may be painful and swollen for a few weeks. Rest the injured area. Avoid strenuous activity and any activities or movements that cause pain. This information is not intended to replace advice given to you by your health care provider. Make sure you discuss any questions you have with your health care provider. Document Revised: 06/15/2020 Document Reviewed: 06/15/2020 [employer] Patient Education 2023 [employer] Follow Up Care 02/26/2024 14:55:59 With:[employer] Address: [address] [place] [address] Business (1) When:02/29/2024 17:03:50 [facility] 12-04-2024 NoteED Patient Education Note Orthopedics Rib Contusion A rib contusion is a deep bruise on the rib area. Contusions are the result of a blunt trauma that causes bleeding and injury to the tissues under the skin. A rib contusion may involve bruising of the ribs and of the skin and muscles in the area. The skin over the contusion may turn blue, purple, or yellow. Minor injuries result in a painless contusion. More severe contusions may be painful and swollen for a few weeks. What are the causes? This condition is usually caused by a hard, direct hit to an area of the body. This often occurs while playing contact sports. What are the signs or symptoms? Symptoms of this condition include: ??? Swelling and redness of the injured area. ??? Discoloration of the injured area. ??? Tenderness and soreness of the injured area. ??? Pain with or without movement. ??? Pain when breathing in. How is this diagnosed? This condition may be diagnosed based on: ??? Your symptoms and medical history. ??? A physical exam. ??? Imaging tests?such as an X-ray, CT scan, or MRI?to determine if there were internal injuries orbroken bones (fractures). How is this treated? This condition may be treated with: ??? Rest. This is often the best treatment for a rib contusion. ??? Ice packs. This reduces swelling and inflammation. ??? Deep-breathing exercises. These may be recommended to reduce the risk for lung collapse and pneumonia. ??? Medicines. Pyse-pex-gkidvyd or prescription medicines may be given to control pain. ??? Injection of a numbing medicine around the nerve near your injury (nerve block). Follow these instructions at home: Medicines ??? Take ibkz-acn-idblybb and prescription medicines only as told by your health care provider. ??? Ask your health care provider if the medicine prescribed to you: ? Requires you to avoid driving or using machinery. ? Can cause constipation. You may need to take these actions to prevent or treat constipation: ? Drink enough fluid to keep your urine pale yellow. ? Take usox-tdh-fzfuzye or prescription medicines. ? Eat foods that are high in fiber, such as beans, whole grains, and fresh fruits and vegetables. ? Limit foods that are high in fat and processed sugars, such as fried or sweet foods. Managing pain, stiffness, and swelling If directed, put ice on the injured area. To do this: ??? Put ice in a plastic bag. ??? Place a towel between your skin and the bag. ??? Leave the ice on for 20 minutes, 2?3 times a day. ??? Remove the ice if your skin turns bright red. This is very important. If you cannot feel pain, heat, or cold, you have a greater risk of damage to the area. Activity ??? Rest the injured area. ??? Avoid strenuous activity and any activities or movements that cause pain. Be careful during activities, and avoid bumping the injured area. ??? Do not lift anything that is heavier than 5 lb (2.3 kg), or the limit that you are told, until your health care provider says that it is safe. General instructions ??? Do not use any products that contain nicotine or tobacco, such as cigarettes, e-cigarettes, andchewing tobacco. These can delay healing. If you need help quitting, ask your health care provider. ??? Do deep-breathing exercises as told by your health care provider. ??? If you were given an incentive spirometer, use it every 1?2 hours while you are awake, or as recommended by your health care provider. This device measures how well you are filling your lungs with each breath. ??? Keep all follow-up visits. This is important. Contact a health care provider if you have: ??? Increased bruising or swelling. ??? Pain that is not controlled with treatment. ??? A fever. Get help right away if you: ??? Have difficulty breathing or shortness of breath. ??? Develop a continual cough, or you cough up thick or bloody mucus from your lungs (sputum). ??? Feel nauseous or you vomit. ??? Have pain in your abdomen. These symptoms may represent a serious problem that is an emergency. Do not wait to see if the symptoms will go away. Get medical help right away. Call your local emergency services (911 in the [place] Do not drive yourself to the hospital. Summary ??? A rib contusion is a deep bruise on your rib area. Contusions are the result of a blunt trauma that causes bleeding and injury to the tissues under the skin. ??? The skin over the contusion may turn blue, purple, or yellow. Minor injuries may cause a painless contusion. More severe contusions may be painful and swollen for a few weeks. ??? Rest the injured area. Avoid strenuous activity and any activities or movements that cause pain. This information is not intended to replace advice given to you by your health care provider. Make sure you discuss any questions you have with your health care provider. Document Revised: 06/15/2020 Document Rev (more content not included)...[facility]12-04-2024 Evaluation + Plan noteExtracted from:Title:ED NoteAuthor:Manuel Naik PA-C.Date:02/26/24 Contusion of rib on left josh e (S20.212A: Contusion of left front wall of thorax, initial encounter) Orders: ketorolac, 30 mg = 1 mL, Injection, IntraMuscular, Once, Stop date 02/26/24 15:50:00 EST, STAT, Start date 02/26/24 15:50:00 EST, 02/26/24 15:50:00 EST morphine, 4 mg = 1 mL, Injection, IntraMuscular, Once, Stop date 02/26/24 15:50:00 EST, STAT, Startdate 02/26/24 15:50:00 EST, 02/26/24 15:50:00 EST XR Ribs Unilat 3 Views Left w/ PA Chest Future Scheduled Tests Laboratory* TSH With T4fr Reflex 07/17/23 * Urinalysis with Micro 07/17/23 * Lipid Panel 07/17/23 * Drug Screen Urine 07/17/23 Radiology* MA Mamm Screen w/CAD if perf and 3D Kenan 07/17/23 [facility] 12-01-2024 Hospital Discharge instructions Patient Education 02/23/2024 12:15:49 Chronic Back Pain Chronic Back Pain Chronic [...] pull them backward. 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 Take brief [...] to your body. ?Avoid twisting. Medicines Take ahll-yll-wwakslx and prescription medicines only as told by [...] keep your pee (urine) pale yellow. ?Take smss-vjl-hsemqxh or prescription medicines. ?Eat foods that are [...] provider. Document Revised: 10/29/2022 Document Reviewed: 10/29/2022 [employer] Patient Education 2023 [employer]. Follow Up Care 02/23/2024 11:04:42 With:Susu Samaniego Address: [place] [address]- Business (1) When:02/26/2024 12:08:34 [facility] 12-01-2024 Evaluation + Plan noteExtracted from:Title: ED NoteAuthor:Brandon MILES, JansenDate:02/23/24 Back pain, chronic (M54.9: D orsalgia, unspecified) Ordered: acetaminophen-oxycodone, 1 tab(s), Oral, q6hr as needed for pain for 3 day(s), 12 tab(s), Refill(s)0, [id number], 160, cm, 02/23/24 11:08:00 EST, Height/Length Dosing, 115, kg, 02/23/24 11:08:00 EST, Weight Dosing Other chronic pain (G89.29: Other chronic pain) Future Scheduled Tests Laboratory* TSH With T4fr Reflex 07/17/23 * Urinalysis with Micro 07/17/23 * Lipid Panel 07/17/23 * Drug Screen Urine 07/17/23 Radiology* MA Mamm Screen w/CAD if perf and 3D Kenan 07/17/23 [facility] 12-01-2024 NoteED Patient Education Note Orthopedics Chronic Back [...] them backward. ??? 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 ??? Take [...] body. ? Avoid twisting. Medicines ??? Take zqfp-swz-difjipw and prescription medicines only as told by [...] your pee (urine) pale yellow. ? Take vntg-nso-diobxho or prescription medicines. ? Eat foods that [...] provider. Document Revised: 10/29/2022 Document Reviewed: 10/29/2022 [employer] Patient Education ? 2023 [employer].[facility] 02-20-2024 Hospital Discharge instructions Patient Education 02/20/2024 17:25:33 Urinary Tract Infection, Adult Urinary Tract Infection, Adult A urinary tract infection (UTI) is an infection of any part of the urinary tract. The urinary tractincludes the kidneys, ureters, bladder, and urethra. These organs make, store, and get rid of urinein the body. An upper UTI affects the [...] Treatment for this condition includes: Antibiotic medicine. Ywdc-vpm-hgessos medicines to treat discomfort. Drinking enough water to stay hydrated. If you have frequent infections or have other conditions such as a kidney stone, you may need to see a health care provider who specializes in the urinary tract (urologist). In rare cases, urinary tract infections can cause sepsis. Sepsis is a life- threatening condition that occurs when the body responds to an infection. Sepsis is treated in the hospital with IV antibiotics, fluids, and other medicines. Follow these instructions at home: Medicines Take mwwb-sig-jaelkhl and prescription medicines only as told by your health care provider. If you were prescribed an antibiotic medicine, take it as told by your health care provider. Do notstop using the antibiotic even if you start [...] by your health care provider. Do notstop using the antibiotic even if you start to feel better. Keep all follow-up visits. This is important. This information is not intended to replace advice given to you by your health care provider. Make sure you discuss any questions you have with your health care provider. Document Revised: 10/16/2020 Document Reviewed: 10/21/2020 [employer] Patient Education 2023 [employer]. Follow Up Care 02/20/2024 16:41:49 With:XXXX NONE Address: [place] When:02/23/2024 17:23:54 Comments:Call the office of your [...] weakness, or any new or worsening symptoms. [facility] 11-28-2024 NoteED Patient Education Note Obstetrics and Gynecology Urinary Tract Infection, Adult A urinary tract infection (UTI) is an infection of any part of the urinary tract. The urinary tractincludes the kidneys, ureters, bladder, and urethra. These organs make, store, and get rid of urinein the body. An upper UTI affects the [...] this condition includes: ??? Antibiotic medicine. ??? Cjcy-jqc-dnyogui medicines to treat discomfort. ??? Drinking enough water to stay hydrated. If you have frequent infections or have other conditions such as a kidney stone, you may need to see a health care provider who specializes in the urinary tract (urologist). In rare cases, urinary tract infections can cause sepsis. Sepsis is a life- threatening condition that occurs when the body responds to an infection. Sepsis is treated in the hospital with IV antibiotics, fluids, and other medicines. Follow these instructions at home: Medicines ??? Take tgfn-cdp-nldpnhe and prescription medicines only as told by your health care provider. ??? If you were prescribed an antibiotic medicine, take it as told by your health care provider. Donot stop using the antibiotic even if you [...] as told by your health care provider. Donot stop using the antibiotic even if you start to feel better. ??? Keep all follow-up visits. This is important. This information is not intended to replace advice given to you by your health care provider. Make sarmad (more content not included)...[facility]11-28-2024 Evaluation + Plan noteExtracted from:Title:ED NoteAuthor:Nikhil Tubbs DODate:02/20/24 Acute UTI (N39.0: Urinary tr act infection, site not specified) Orders: acetaminophen-oxycodone, 1 tab(s), Tab, Oral, Once, Stop date 02/20/24 17:23:00 EST, STAT, Start date 02/20/24 17:23:00 EST ciprofloxacin, 250 mg = 1 tab(s), Oral, q12hr, X 5 day(s), # 10 tab(s), Refills(s) 0, Pharmacy: [facility]/pharmacy #[id number], 160, cm, 02/20/24 16:44:00 EST, Height/Length [...] perf and 3D Kenan 07/17/23 [facility] [id number] Evaluation + Plan noteExtracted from:Title: ED NoteAuthor:Manuel Naik PA-CDate:02/16/24 Costochondritis (M94.0: Jeevan drocostal junction syndrome [Tietze]) Cough (R05.9: Cough, unspecified) Pneumonia (J18.9: Pneumonia, unspecified organism) Shortness of breath (R06.02: Shortness of breath) Orders: albuterol-ipratropium, 3 mL, Soln-Inh, Inhalation, Once, Stop date 02/16/24 9:33:00 EST, STAT, Start date 02/16/24 9:33:00 EST cefdinir, 300 mg = 1 cap(s), Oral, q12hr, X 7 day(s), # 14 cap(s), Refills(s) 0, Pharmacy: [facility]/pharmacy #[id number], 160, cm, 02/16/24 9:23:00 EST, Height/Length [...] Once, Stop date 02/16/24 10:57:00 EST, STAT, Startdate 02/16/24 10:57:00 EST, 02/16/24 10:57:00 EST Basic [...] perf and 3D Kenan 07/17/23 [facility] 11-24-2024 Hospital Discharge instructions Patient Education 02/16/2024 [...] Follow these instructions at home: Medicines Take xjmb-cab-gxtfbce and prescription medicines only as told by [...] and water are not available, 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 Contact a health care provider if: You [...] provider. Document Revised: 05/09/2022 Document Reviewed: 05/09/2022 [employer] Patient Education 2023 [employer]. 02/16/2024 11:52:05 Costochondritis Costochondritis Costochondritis is inflammation [...] are safe for you. General instructions Take hfoy-vze-fjhvole and prescription medicines only as told by [...] provider. Document Revised: 09/27/2022 Document Reviewed: 09/27/2022 [employer] Patient Education 2023 [employer]. Follow Up Care 02/16/2024 09:18:00 With:Mayra Rosas Address: [address] [place] [address] [place], [facility] A [address] Business (1) When:02/19/2024 11:44:12 [facility] [id number] NoteED Patient Education Note Infectious Disease Community-Acquired [...] these instructions at home: Medicines ??? Take mfvx-ksd-cnrkcfz and prescription medicines only as told by [...] risk of developing commu (more content not included)...[facility]11-22-2024 Hospital Discharge instructions Follow Up Care 02/14/2024 12:15:02 With:Mayra Rosas Address: [address] [place] [address] [facility] [address] Business (1) When:Within 3 Day(s) [facility] 11-22-2024 Evaluation + Plan noteExtracted from:Title: ED NoteAuthor:Jorge Mcintosh DODate:02/14/24 Pleurisy (R09.1: Pleurisy) Pneumonia (J18.9: Pneumonia, unspecified [...] day one, then one tab daily, # 6tab(s), Refills(s) 0, Pharmacy: [facility]/pharmacy #[id number], 160, cm, 02/14/24 12:22:00 EST, Height/Length Dosing, 114.8, kg, 02/14/24 12:22:00 EST, Weight Dosing ketorolac, 30 mg = 1 mL, Injection, IV, Once, Stop date 02/14/24 15:36:00 EST, STAT, Start date 02/14/24 15:36:00 EST, 02/14/24 15:36:00 EST predniSONE, 3, Oral, Daily, # 15 tab(s), Refills(s) 0, Pharmacy: [facility]/pharmacy #[id number], 160, cm, 02/14/24 12:22:00 EST, Height/Length [...] perf and 3D Kenan 07/17/23 [facility] 11-17-2024 Hospital Discharge instructions* Discharge Instructions* Deepa [...] Care Everywhere. * Managing pain after surgery (Malagasy) [facility]: 1(280) 352-776111-17-2024 Emergency department Note* Bianca Persaud RN - 02/09/2024 10:32 AM EST S/p back sx thur on L4L5, states her wound vac is not working. Pt states she noticed it stopped working last night. [facility] Work [facility]: 1(218) 739-309511-17-2024 Emergency department Triage note* Bianca Persaud RN - 02/09/2024 10:32 AM EST S/p back sx thur on L4L5, states her wound vac is not working. Pt states she noticed it stopped working last night. [facility] Note* Op Note - Judah Woodard [...] DISCECTOMY POSTERIOR LUMBAR LEFT L4-5 MINIMALLY INVASIVE 37397 - MS LAMNOTMY INCL W/DCMPRSN NRV ROOT 1 INTRSPC LUMBR Surgeons * Judah Ray - Primary Resident/Fellow/Other Herbicide Sprayer: Surgeons and Role: * No surgeons found with a matching role * Staff: Business Process Associate: Griffin Scrub Person: Mayra Sales Representative [employer]: Abby Solanoub Person: Merna Anesthesia Staff: Anesthesiologist: Brock Agudelo MD PLASTIC PRESS MOLDER: Gerardo Peña APRN-SARBINA Procedure Summary Anesthesia: Anesthesia type not filed [...] The fascia was coagulated and cut. The MedPro minimally invasive NTS spine system was used. [...] Attestation: I performed the procedure. Judah Woodard [facility] Work Phone: 1(687) 962-839911-14-2024 Miscellaneous Notes* Op Note - Judah Woodard MD - 02/06/2024 3:09 PM EST DISCECTOMY POSTERIOR LUMBAR LEFT L4-5 MINIMALLY INVASIVE (L) Operative Note Date: 02/06/2024 OR Location: [facility] Name: Jerad Collins , : 1975, Age: 48 y.o., , Sex: female Diagnosis Pre-op Diagnosis * Lumbar disc herniation with radiculopathy [M51.16] Post-op Diagnosis * Lumbar disc herniation with radiculopathy [M51.16] Procedures DISCECTOMY POSTERIOR LUMBAR LEFT L4-5 MINIMALLY INVASIVE 31411 - MS LAMNOTMY INCL W/DCMPRSN NRV ROOT 1 INTRSPC LUMBR Surgeons * Judah Woodard - Primary Resident/Fellow/Other Herbicide Sprayer: Surgeons and Role: * No surgeons found with a matching role * Staff: Business Process Associate: Griffin Escobedo Person: Mayra Sales Representative [employer]: Abby Escobedo Person: Merna Anesthesia Staff: Anesthesiologist: Brock Agudelo MD PLASTIC PRESS MOLDER: Gerardo Peña APRN-SABRINA Procedure Summary Anesthesia: Anesthesia [...] The fascia was coagulated and cut. The NuVadio minimally invasive NTS spine system was used. [...] the procedure. Judah Woodard documented in this [facility] Work Phone: 1(688) 941-493011-14-2024 Attending History and physical note* Judah Woodard [...] She has done physic al therapy at [facility] and continues to do home exercises. She [...] infection and wound dehiscence. Judah Woodard MD [facility] Work Phone: 1(186) 510-774211-14-2024 History and physical note* Judah Woodard MD [...] She has done physic al therapy at [facility] and continues to do home exercises. She [...] dehiscence. Judah Woodard MD documented in this [facility] Work Phone: 1(621) 435-482911-14-2024 Hospital Discharge instructions* Discharge Instructions* Elke Sanches APRN-WAIVER ANALYST - 02/06/2024 1:03 PM EST Spine DC [...] apply creams or lotions. documented in this [facility] Work Phone: 1(732) 681-338711-12-2024 Hospital Discharge instructions Patient Education 02/04/2024 18:26:07 [...] home: Managing pain, stiffness, and swelling Take tgwz-vfm-mcyvbhz and prescription medicines only as told by [...] each day. 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 Take yaca-ajv-ycjdyhg and prescription medicines only as told by your health care provider, and apply heat or ice as told. This information is not intended to replace advice given to you by your health care provider. Make sure you discuss any questions you have with your health care provider. Document Revised: 06/02/2021 Document Reviewed: 06/02/2021 [employer] Patient Education 2023 [employer] Follow Up Care 02/04/2024 16:57:46 With:Mayra Rosas Address: [address], [address] [place] [id number]- Business (1) When:02/07/2024 17:35:32 [facility] 11-12-2024 NoteED Patient Education Note Orthopedics Acute [...] Managing pain, stiffness, and swelling ??? Take ddhb-qwa-vdsmnib and prescription medicines only as told by [...] day. ??? 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 ??? Y (more content not included)...[facility]11-12-2024 History and physical note* Dino Melgoza [...] preserved. NEURO: Alert and oriented X 3 BUSINESS INTEGRATION ANALYST normal as tested without focal neurological deficit [...] spine dated 01/01/2024; 12/18/2023; 10/31/2023;. ACCESSION NUMBER(S): [id number] ORDERING CLINICIAN: GERMAINE BLAIR TECHNIQUE: Sagittal T1, [...] STIR hyperintense edema. There is redemonstration of bqua-lx-hmqiciby disc height loss at the level of L4-L5, with intervertebral disc space is preserved at other levels. Lower thoracic spinal cord unremarkable in appearance. Conus medullaris terminates at the level of L1-L2. There is redemonstration of circumferential disc bulge with superimposed left subarticular disc protrusion at the level of L4-L5 which contributes to dgyh-ch-aabrxwmd spinal canal and mild left-sided neural foraminal [...] at the level of L4-L5, contributing to pzdn-fi-rboxzbxh spinal canal and mild left-sided neural foraminal narrowing and likely abutment/effacement of the traversing left L5 nerve. 2. No new abnormality is identified in the lumbar spine in the interim to recent MRI on 01/01/2024. No new posterior disc contour abnormality or spinal canal stenosis is present. MACRO: None Signed by: Bernadette Tapia 01/10/2024 9:34 PM Dictation workstation: [id number] XR lumbar spine 4+ views w flexion extension Result Date: 01/02/2024 Interpreted By: Danielle Orozco, STUDY: XR LUMBAR SPINE 4+ VIEWS WITH FLEXION EXTENSION; 01/02/2024 8:59 am INDICATION: Signs/Symptoms:L4-L5 lumbar stenosis with concern for spondylolisthesis. COMPARISON: None. ACCESSION NUMBER(S): [id number] ORDERING CLINICIAN: ANGELA GONZALEZ FINDINGS: Multiple views of the lumbar spine are obtained. Alignment is intact. The vertebral body heights are preserved. Disc space loss at L4/L5 with endplate sclerosis and osteophytes . No acute fracture-dislocation. Discogenic degenerative changes as described. Signed by: Danielle Orozco 01/02/2024 9:15 AM Dictationworkstation: [id number] MR lumbar spine w and wo IV contrast Result Date: 01/01/2024 Interpreted By: Claudio Balderas, STUDY: MR LUMBAR SPINE W AND WO IV CONTRAST INDICATION: Signs/Symptoms:Paresthesia and weakness of the left lower extremity COMPARISON: Lumbar spine MRI 12/18/2023 ACCESSION NUMBER(S): [id number] ORDERING CLINICIAN: MICHELE LION TECHNIQUE: Multiplanar multisequence [...] by: Claudio Balderas01/01/2024 5:46 PM Dictation workstation: [id number] CT lumbar spine wo IV contrast Result Date: 12/21/2023 Interpreted By: Tomás Hercules, STUDY: CT LUMBAR SPINE WO IV CONTRAST; 12/21/2023 10:01 pm INDICATION: Signs/Symptoms:fell, injured lower back. COMPARISON: MR lumbar spine 12/18/2023 ACCESSION NUMBER(S): [id number] ORDERING CLINICIAN: FRANCISCO J DALEY TECHNIQUE: Axial [...] Tomás Hercules 12/21/2023 10:40 PM Dictation workstation: [id number] MR lumbar spine w and wo IV [...] spine dated 12/06/2023 and 11/13/2023;. ACCESSION NUMBER(S): [id number]; [id number]; [id number] ORDERING CLINICIAN: FATOU TELLEZ TECHNIQUE: Sagittal T1, [...] flavum thickening and facet arthropathy results in khqn-fu-afdezeac spinal canal stenosis. Mild neural foraminal stenosis [...] the cervical spine as detailed above, with abmj-zo-ptfzpdaz narrowing present at the level of C6-C7 due to disc osteophyte complex and ligamentum flavum thickening. 4. Mild degenerative changes in the thoracic spine are similar in appearanceto prior exam on 11/08/2023 without evidence of new high-grade stenosis.. I personally reviewed theimages/study and I agree with the findings as stated by resident physician Dr. Rick Nevarez. This study was interpreted at [place], [place]. MACRO: None Signed by: Bernadette Tapia 12/19/2023 2:07 AM Dictation workstation: [id number] MR cervical spine w and wo IV contrast Result Date: 12/19/2023 Interpreted By: Bernadette Tapia, Annika Nevarez [facility] STUDY: MR CERVICAL SPINE W AND WO [...] spine dated 12/06/2023 and 11/13/2023;. ACCESSION NUMBER(S): [id number]; [id number]; [id number] ORDERING CLINICIAN: FATOU TELLEZ TECHNIQUE: Sagittal T1, [...] flavum thickening and facet arthropathy results in aorx-uc-nwqvkoxx spinal canal stenosis. Mild neural foraminal stenosis [...] the cervical spine as detailed above, with cspu-vf-qopowyuy narrowing present at the level of C6-C7 due to disc osteophyte complex and ligamentum flavum thickening. 4. Mild degenerative changes in the thoracic spine are similar in appearanceto prior exam on 11/08/2023 without evidence of new high-grade stenosis.. I personally reviewed theimages/study and I agree with the findings as stated by resident physician Dr. Rick Nevarez. This study was interpreted at [place], [place]. MACRO: None Signed by: Bernadette Tapia 12/19/2023 2:07 AM Dictation workstation: [id number] MR thoracic spine w and wo IV contrast Result Date: 12/19/2023 Interpreted By: Bernadette Tapia and Afshari Mirak Sohrab STUDY: MR CERVICAL SPINE W AND WO [...] spine dated 12/06/2023 and 11/13/2023;. ACCESSION NUMBER(S): [id number]; [id number]; [id number] ORDERING CLINICIAN: FATOU TELLEZ TECHNIQUE: Sagittal T1, [...] flavum thickening and facet arthropathy results in zqbx-in-oxlzqhhw spinal canal stenosis. Mild neural foraminal stenosis [...] the cervical spine as detailed above, with jhwk-rl-igdiqkay narrowing present at the level of C6-C7 due to disc osteophyte complex and ligamentum flavum thickening. 4. Mild degenerative changes in the thoracic spine are similar in appearanceto prior exam on 11/08/2023 without evidence of new high-grade stenosis.. I personally reviewed theimages/study and I agree with the findings as stated by resident physician Dr. Rick Nevarez. This study was interpreted at [facility], [place], [place]. MACRO: None Signed by: Bernadette Tapia 12/19/2023 2:07 AM Dictation workstation: [id number] CT lumbar spine w IV contrast Result Date: 12/15/2023 Interpreted By: Allyson Schultz, STUDY: CT ABDOMEN PELVIS W IV CONTRAST; CT LUMBAR SPINE W IV CONTRAST; 12/15/2023 7:50 pm INDICATION: Signs/Symptoms:h/o spinal stim c/b infections with wound vac inplace, pain to surrounding areas radiating to flanks. COMPARISON: 12/07/2023 CT abdomen/pelvis ACCESSION NUMBER(S): [id number]; [id number] ORDERING CLINICIAN: LILIA GERONIMO TECHNIQUE: Contiguous axial images of the [...] Allyson Schultz 12/15/2023 8:37 PM Dictation workstation: [id number] CT lumbar spine wo IV contrast Result [...] spine , XR abdomen 10/31/2023. ACCESSION NUMBER(S): [id number], [id number] ORDERING CLINICIAN: DOUG ALFONSO TECHNIQUE: CT of [...] COMPARISON: MR lumbar spine 11/13/2023. ACCESSION NUMBER(S): [id number] ORDERING CLINICIAN: MARQUIS OBRIEN TECHNIQUE: SagittalT1, T2, STIR, axial T1 and [...] severe left subarticular stenosis, similar to prior. Kqcr-pn-wvqnolhr dpcfg-uuoenwv-whxv-left neural foraminal stenosis. L5-S1: Small disc bulge [...] Suarez MD. This study was interpreted at [place], [place] MACRO: None Signed by: Oscar Sabillon 12/07/2023 1:30 AM Dictation workstation: [id number] CT lumbar spine w IV contrast Result [...] consider dedicated adrenal imaging. Keke Beebe D.O.Workstation ID:[id number] MR lumbar spine w and wo IV contrast Result Date: 11/14/2023 Interpreted By: Oscar Sabillon, and Kenji Herr STUDY: MR LUMBAR SPINE W AND WO IV CONTRAST; 11/13/2023 8:10 pm INDICATION: Signs/Symptoms:r/o abscess. COMPARISON: MRI lumbar spine 10/31/2023 ACCESSION NUMBER(S): [id number] ORDERING CLINICIAN: CRISTOBAL JESSICA TECHNIQUE: Sagittal T1, T2, STIR, axial T1 [...] similar to prior. There is also similar pzjx-pl-hbqhiuak right greater than left foraminal stenosis due [...] of midline at (more content not included)... [facility] Work Phone: 1(272) 393-297811-12-2024 History and physical note* Dino Melgoza MD [...] preserved. NEURO: Alert and oriented X 3 BUSINESS INTEGRATION ANALYST normal as tested without focal neurological deficit [...] spine dated 01/01/2024; 12/18/2023; 10/31/2023;. ACCESSION NUMBER(S): [id number] ORDERING CLINICIAN: GERMAINE BLAIR TECHNIQUE: Sagittal T1, [...] STIR hyperintense edema. There is redemonstration of hsuf-eq-btiqzsqw disc height loss at the level of L4-L5, with intervertebral disc space is preserved at other levels. Lower thoracic spinal cord unremarkable in appearance. Conus medullaris terminates at the level of L1-L2. There is redemonstration of circumferential disc bulge with superimposed left subarticular disc protrusion at the level of L4-L5 which contributes to rnnq-hn-nkuokksz spinal canal and mild left-sided neural foraminal [...] at the level of L4-L5, contributing to jxtg-ql-ywihndxd spinal canal and mild left-sided neural foraminal narrowing and likely abutment/effacement of the traversing left L5 nerve. 2. No new abnormality is identified in the lumbar spine in the interim to recent MRI on 01/01/2024. No new posterior disc contour abnormality or spinal canal stenosis is present. MACRO: None Signed by: Bernadette Tapia 01/10/2024 9:34 PM Dictation workstation: [id number] XR lumbar spine 4+ views w flexion extension Result Date: 01/02/2024 Interpreted By: Danielle Orozco, STUDY: XR LUMBAR SPINE 4+ VIEWS WITH FLEXION EXTENSION; 01/02/2024 8:59 am INDICATION: Signs/Symptoms:L4-L5 lumbar stenosis with concern for spondylolisthesis. COMPARISON: None. ACCESSION NUMBER(S): [id number] ORDERING CLINICIAN: ANGELA GONZALEZ FINDINGS: Multiple views of the lumbar spine are obtained. Alignment is intact. The vertebral body heights are preserved. Disc space loss at L4/L5 with endplate sclerosis and osteophytes . No acute fracture-dislocation. Discogenic degenerative changes as described. Signed by: Danielle Orozco 01/02/2024 9:15 AM Dictationworkstation: [id number] MR lumbar spine w and wo IV contrast Result Date: 01/01/2024 Interpreted By: Claudio Balderas, STUDY: MR LUMBAR SPINE W AND WO IV CONTRAST INDICATION: Signs/Symptoms:Paresthesia and weakness of the left lower extremity COMPARISON: Lumbar spine MRI 12/18/2023 ACCESSION NUMBER(S): [id number] ORDERING CLINICIAN: MICHELE ILON TECHNIQUE: Multiplanar multisequence MRI of the lumbar [...] by: Claudio Balderas01/01/2024 5:46 PM Dictation workstation: [id number] CT lumbar spine wo IV contrast Result Date: 12/21/2023 Interpreted By: Tomás Hercules, STUDY: CT LUMBAR SPINE WO IV CONTRAST; 12/21/2023 10:01 pm INDICATION: Signs/Symptoms:fell, injured lower back. COMPARISON: MR lumbar spine 12/18/2023 ACCESSION NUMBER(S): [id number] ORDERING CLINICIAN: FRANCISCO J DALEY TECHNIQUE: Axial [...] Tomás Hercules 12/21/2023 10:40 PM Dictation workstation: [id number] MR lumbar spine w and wo IV [...] spine dated 12/06/2023 and 11/13/2023;. ACCESSION NUMBER(S): [id number]; [id number]; [id number] ORDERING CLINICIAN: FATOU TELLEZ TECHNIQUE: Sagittal T1, [...] flavum thickening and facet arthropathy results in pgjn-ft-aogdyvpp spinal canal stenosis. Mild neural foraminal stenosis [...] the cervical spine as detailed above, with zxqb-gg-kxuvrxzj narrowing present at the level of C6-C7 due to disc osteophyte complex and ligamentum flavum thickening. 4. Mild degenerative changes in the thoracic spine are similar in appearanceto prior exam on 11/08/2023 without evidence of new high-grade stenosis.. I personally reviewed theimages/study and I agree with the findings as stated by resident physician Dr. Rick Nevarez. This study was interpreted at [facility], [place], [place]. MACRO: None Signed by: Bernadette Tapia 12/19/2023 2:07 AM Dictation workstation: [id number] MR cervical spine w and wo IV [...] spine dated 12/06/2023 and 11/13/2023;. ACCESSION NUMBER(S): [id number]; [id number]; [id number] ORDERING CLINICIAN: FATOU TELLEZ TECHNIQUE: Sagittal T1, [...] flavum thickening and facet arthropathy results in hhbl-mk-bzhqgbyp spinal canal stenosis. Mild neural foraminal stenosis [...] the cervical spine as detailed above, with xlgd-fb-yaohmsha narrowing present at the level of C6-C7 due to disc osteophyte complex and ligamentum flavum thickening. 4. Mild degenerative changes in the thoracic spine are similar in appearanceto prior exam on 11/08/2023 without evidence of new high-grade stenosis.. I personally reviewed theimages/study and I agree with the findings as stated by resident physician Dr. Rick Nevarez. This study was interpreted at [facility], [place], [place]. MACRO: None Signed by: Bernadette Tapia 12/19/2023 2:07 AM Dictation workstation: [id number] MR thoracic spine w and wo IV [...] spine dated 12/06/2023 and 11/13/2023;. ACCESSION NUMBER(S): [id number]; [id number]; [id number] ORDERING CLINICIAN: FATOU TELLEZ TECHNIQUE: Sagittal T1, [...] flavum thickening and facet arthropathy results in oedi-ax-avtgbqqv spinal canal stenosis. Mild neural foraminal stenosis [...] the cervical spine as detailed above, with bbif-mr-xfalkmmn narrowing present at the level of C6-C7 due to disc osteophyte complex and ligamentum flavum thickening. 4. Mild degenerative changes in the thoracic spine are similar in appearanceto prior exam on 11/08/2023 without evidence of new high-grade stenosis.. I personally reviewed theimages/study and I agree with the findings as stated by resident physician Dr. Rick Nevarez. This study was interpreted at [place], [place]. MACRO: None Signed by: Bernadette Tapia 12/19/2023 2:07 AM Dictation workstation: [id number] CT lumbar spine w IV contrast Result Date: 12/15/2023 Interpreted By: Allyson Schultz, STUDY: CT ABDOMEN PELVIS W IV CONTRAST; CT LUMBAR SPINE W IV CONTRAST; 12/15/2023 7:50 pm INDICATION: Signs/Symptoms:h/o spinal stim c/b infections with wound vac inplace, pain to surrounding areas radiating to flanks. COMPARISON: 12/07/2023 CT abdomen/pelvis ACCESSION NUMBER(S): [id number]; [id number] ORDERING CLINICIAN: LILIA GERONIMO TECHNIQUE: Contiguous axial images of the [...] Allyson Schultz 12/15/2023 8:37 PM Dictation workstation: [id number] CT lumbar spine wo IV contrast Result [...] spine , XR abdomen 10/31/2023. ACCESSION NUMBER(S): [id number], [id number] ORDERING CLINICIAN: DOUG ALFONSO TECHNIQUE: CT of [...] COMPARISON: MR lumbar spine 11/13/2023. ACCESSION NUMBER(S): [id number] ORDERING CLINICIAN: MARQUIS OBRIEN TECHNIQUE: SagittalT1, T2, STIR, axial T1 and [...] severe left subarticular stenosis, similar to prior. Adan-ba-vzudhaqa xaicj-sdbmdlg-byow-left neural foraminal stenosis. L5-S1: Small disc bulge [...] Suarez MD. This study was interpreted at [facility], [place], [place] MACRO: None Signed by: Oscar Sabillon 12/07/2023 1:30 AM Dictation workstation: [id number] CT lumbar spine w IV contrast Result [...] consider dedicated adrenal imaging. Keke Beebe D.O.Workstation ID:[id number] MR lumbar spine w and wo IV contrast Result Date: 11/14/2023 Interpreted By: Oscar Sabillon and Kenji Herr STUDY: MR LUMBAR SPINE W AND WO IV CONTRAST; 11/13/2023 8:10 pm INDICATION: Signs/Symptoms:r/o abscess. COMPARISON: MRI lumbar spine 10/31/2023 ACCESSION NUMBER(S): [id number] ORDERING CLINICIAN: CRISTOBAL JESSICA TECHNIQUE: Sagittal T1, T2, STIR, axial T1 [...] similar to prior. There is also similar vicm-dy-qjmeenvd right greater than left foraminal stenosis due [...] findings as stated.This study was interpreted at [place], [place]. Signed by: Oscar Sabillon 11/14/2023 2:57 AM Dictation workstation: [id number] CT lumbar spine wo IV contrast Addendum Date: 11/13/2023 This finding was discussed with and acknowledged by Dr Alana Lindquist on 11/13/2023 at 2:54 PM Signed by Michele Berry MD Result Date: 11/13/2023 STUDY: CT Lumbar Spine without IV Contrast; 11/13/2023 1:45 PM INDICATION: Re- assess surgical site. COMPARISON: CT lumbar 11/09/2023. MR lumbar 10/31/2023. ACCESSION NUMBER(S): [id number] ORDERING CLINICIAN: ALANA LINDQUIST TECHNIQUE: CT of [...] COMPARISON: MR lumbar 10/31/2023, 10/31/2022. ACCESSION NUMBER(S): [id number] ORDERING CLINICIAN: JAROCHO LINDER TECHNIQUE: CT of [...] protocol CT is recommended. Signed by Doc Romero MD MR thoracic spine wo IV contrast Result Date: 11/08/2023 Interpreted By: Mora Smith, STUDY: MR THORACIC SPINE WO IV CONTRAST; 11/08/2023 8:25 am INDICATION: Signs/Symptoms:presurgical planning for reimplant of thoracic spinal cord stimulator leads. COMPARISON: None. ACCESSION NUMBER(S): [id number] ORDERING CLINICIAN: CHIRAG REYNOSO TECHNIQUE: Sagittal T1, [...] as described above. MACRO: None Signed by: Mora Smith 49:53 AM Dictation workstation: [id number] MR lumbar spine w and wo IV [...] COMPARISON: MRI lumbar spine 10/31/2022 ACCESSION NUMBER(S): [id number] ORDERING CLINICIAN: ELKE ADAMS TECHNIQUE: Multiplanar multisequence [...] agree with Germaine Solitario DO's (vice president of news) findings as stated. This study was interpreted at [place], [place]. MACRO: None Signed by: Amy Miller 11/01/2023 12:21 AM Dictation workstation: [id number] Assessment/Plan 62 years old with history and [...] visit with any questions or concerns at [phone] M-F 8-4 pm Dino Melgoza M.D. [employer] , Division of Pain Medicine [facility] [employer] Computer Scientist of Anesthesiology and Pain Medicine [facility] [employer] [facility] [place] [address] [place], [place] [address] Office: [phone] Dino Melgoza MD documented in this [facility] Work Phone: 1(823) 512-107011-12-2024 History of Present illness Narrative* Fanny Edwards [...] anticipated. Fanny Edwards RN documented in this [facility] Work Phone: 1(470) 539-542811-07-2024 Emergency department Note* Germaine Blair PA-C - [...] 1 week. [facility] [...] this time. Patient was recently admitted at [facility] for pain control. She was discharged [...] fracture, pancreatitis, zoster Diagnoses as of 01/30/24 115 Fall, initial encounter Chronic low back pain with left-sided sciatica, unspecified back pain laterality Germaine Blair PA-C 01/30/24 1153 documented in this [facility] Work Phone: 1(905) 485-106111-07-2024 Physician Emergency department Note* Germaine Blair PA-C [...] 1 week. [facility]. [facility] [...] this time. Patient was recently admitted at [facility] for pain control. She was discharged [...] pain laterality Germaine Blair PA-C 01/30/24 1153 [facility] Work Phone: 1(858) 175-851311-05-2024 Nurse Note* Edwina Lopez RN - 01/28/2024 10:42 AM EST 1042am Pt given written and verbal discharge instructions with verbalized understanding. Pt's Iv heplock removed per [facility] without difficulty. Pt wanted to walk down for dc escorted by [facility], pt also given written RX of ambien and oxy, and to pecan picker meds from [facility]. [facility] Work Phone: 1(128) 460-655011-05-2024 Nurse Note* Edwina Lopez RN - 01/28/2024 10:42 AM EST 1042am Pt given written and verbal discharge instructions with verbalized understanding. Pt's Iv heplock removed per [facility] without difficulty. Pt wanted to walk down for dc escorted by [facility], pt also given written RX of ambien and oxy, and to pecan picker meds from [facility]. * Curtis Mckenzie - [...] for comfort. Medicated with prn toradol for 610 low back pain. Vital signs stable. No other needs at this time. Call light is within reach and bed alarm is activated. * Mellissa Chung RN - 01/27/2024 7:30 PM EST Assumed care of patient. Report received from DARSHAN Barrientos. Patient lying in bed watching TV. Vital signs stable. Rates her chronic pain in the lower back an / and will be medicated per doctor's orders. [...] room and call light. documented in this [facility] Work Phone: 1(772) 293-232311-05-2024 Hospital course Narrative* Chirag Miguel MD - [...] Time Provider Department Center 01/29/2024 11:[address] 01/30/2024 9:00 AM Iveth Burger APRN-WAIVER ANALYST [id number] [place] 02/25/2024 11:00 AM Marlee Fitzpatrick MD [id number] [place] 03/10/2024 2:15 PM Judah Woodard MD [id number] [facility] 06/29/2024 8:00 AM Chidi Joseph MD [id number] [place] Time spent coordinating discharge was 32 minutes. Chirag Miguel MD documented in this [facility] Work Phone: 1(346) 944-240611-05-2024 Nurse Note* Curtis Mckenzie - 01/28/2024 8:46 AM EST Vitals done Breakfast was eaten Call light within reach [facility]11-05-2024 Nurse Note* Edwina Lopez RN - 01/28/2024 7:45 AM EST 0745am Assumed care of pt, A/O x4 c/o pains 11/01 to low back no distress noted. Pt awake sitting upat side of bed with call light in reach. [facility] Work Phone: 1(277) 668-444511-05-2024 Nurse Note* Mellissa Chung RN - 01/28/2024 3:30 AM EST Patient resting in bed with eyes closed. Respirations even and unlabored. Call light is within reach and bed alarm is activated. [facility]11-04-2024 Nurse Note* Mellissa Chung RN - 01/27/2024 11:24 PM EST Patient ambulated to restroom with walker. Void x 1. Returned to bed and positioned for comfort. Medicated with prn toradol for 10 low back pain. Vital signs stable. No other needs at this time. Call light is within reach and bed alarm is activated. [facility] Work Phone: 1(840) 177-762711-04-2024 Plan of care note* Care Plan - Mellissa Chung RN - 01/27/2024 8:02 PM EST The patient's goals for the shift include pain management The clinical goals for the shift include pain management, safety [facility] Work Phone: 1(671) 185-849611-04-2024 Miscellaneous Notes* Care Plan - Mellissa Chung [...] throughout the shift Reactivated documented in this [facility] Work Phone: 1(405) 210-454211-04-2024 Nurse Note* Mellissa Chung RN - 01/27/2024 7:30 PM EST Assumed care of patient. Report received from DARSHAN Barrientos. Patient lying in bed watching TV. Vital signs stable. Rates her chronic pain in the lower back an 8/10 and will be medicated per doctor's orders. No other stated needs at this time. Call light is within reach and bed alarm is activated. [facility] Work Phone: 1([phone]) 869-114211-04-2024 History of Present illness Narrative* Cristobal Churchill PT - 01/27/2024 3:36 PM EST Physical Therapy Therapy Communication Note Patient Name: Jerad Collins Department: [facility] Room: [address] [place] [address] Today's Date: 01/27/2024 Discipline: Physical Therapy Comment: [...] a planned spinal surgery for 02/05 at [facility]. PT discussed safety upon discharge home and [...] spine dated 01/01/2024; 12/18/2023; 10/31/2023;. ACCESSION NUMBER(S): [id number] ORDERING CLINICIAN: GERMAINE BLAIR TECHNIQUE: Sagittal T1, [...] STIR hyperintense edema. There is redemonstration of occx-ss-tfedpjst disc height loss at the level of L4-L5, with intervertebral disc space is preserved at other levels. Lower thoracic spinal cord unremarkable in appearance. Conus medullaris terminates at the level of L1-L2. There is redemonstration of circumferential disc bulge with superimposed left subarticular disc protrusion at the level of L4-L5 which contributes to saai-xb-ytczryke spinal canal and mild left-sided neural foraminal [...] at the level of L4-L5, contributing to nlrc-tu-kssguomi spinal canal and mild left-sided neural foraminal narrowing and likely abutment/effacement of the traversing left L5 nerve. 2. No new abnormality is identified in the lumbar spine in the interim to recent MRI on 01/01/2024. No new posterior disc contour abnormality or spinal canal stenosis is present. MACRO: None Signed by: Bernadette Tapia 01/10/2024 9:34 PM Dictation workstation: [id number] Physical Exam Constitutional: Appearance: Normal appearance. HENT: [...] surgery scheduled on 02/06/24 with Neurosurgeon in [facility] to remove herniated/Bulging discs. TCC anticipates home [...] Communication Note Patient Name: Jerad Collins Department: [facility] Room: [address] [place] [address] Today's Date: 01/27/2024 Discipline: Physical Therapy Comment: PT eval orders received, however patient is awaiting pain management consult. PT will waitto see what the plan is from pain management team prior to proceeding with PT eval. Cristobal Churchill PT, DPT documented in this [facility] Work Phone: 1(491) 567-995211-04-2024 Nurse Note* Iliana Fox RN - 01/27/2024 3:30 PM EST Patient states she can tolerate a pain level of 7 Medicated as per request and order for pain.Refused to participate with physical therapy. [facility]11-04-2024 Nurse Note* Iliana Fox RN - 01/27/2024 10:52 AM EST Pain management in to see patient and will discuss pain medication for management. [facility] Work Phone: 1(211) 106-489011-04-2024 Consult note* Jia Nichols MD - 01/27/2024 [...] spine dated 01/01/2024; 12/18/2023; 10/31/2023;. ACCESSION NUMBER(S): [id number] ORDERING CLINICIAN: GERMAINE BLAIR TECHNIQUE: Sagittal T1, [...] STIR hyperintense edema. There is redemonstration of zghc-oa-pyelggch disc height loss at the level of L4-L5, with intervertebral disc space is preserved at other levels. Lower thoracic spinal cord unremarkable in appearance. Conus medullaris terminates at the level of L1-L2. There is redemonstration of circumferential disc bulge with superimposed left subarticular disc protrusion at the level of L4-L5 which contributes to yhun-mz-goxcgquc spinal canal and mild left-sided neural foraminal [...] at the level of L4-L5, contributing to opwg-ki-tdkzbhlg spinal canal and mild left-sided neural foraminal narrowing and likely abutment/effacement of the traversing left L5 nerve. 2. No new abnormality is identified in the lumbar spine in the interim to recent MRI on 01/01/2024. No new posterior disc contour abnormality or spinal canal stenosis is present. MACRO: None Signed by: Bernadette Tapia 01/10/2024 9:34 PM Dictation workstation: [id number] No image results found. No diagnosis found. [...] Jia Nichols MD Interventional Pain Medicine Fellow [facility] This note was generated with the aid of dictation software, there may be typographical errors despite my attempts at proofreading. Cosigned by Drake Kenyon MD PhD at 01/27/2024 1:05 PM EST [facility] Work Phone: 1(364) 741-756511-04-2024 Consult note* Jia Nichols MD - 01/27/2024 [...] spine dated 01/01/2024; 12/18/2023; 10/31/2023;. ACCESSION NUMBER(S): [id number] ORDERING CLINICIAN: GERMAINE BLAIR TECHNIQUE: Sagittal T1, [...] STIR hyperintense edema. There is redemonstration of bbdw-pd-yvzzhacr disc height loss at the level of L4-L5, with intervertebral disc space is preserved at other levels. Lower thoracic spinal cord unremarkable in appearance. Conus medullaris terminates at the level of L1-L2. There is redemonstration of circumferential disc bulge with superimposed left subarticular disc protrusion at the level of L4-L5 which contributes to fuxs-ex-vpipghql spinal canal and mild left-sided neural foraminal [...] at the level of L4-L5, contributing to ugub-nz-pljsgxfe spinal canal and mild left-sided neural foraminal narrowing and likely abutment/effacement of the traversing left L5 nerve. 2. No new abnormality is identified in the lumbar spine in the interim to recent MRI on 01/01/2024. No new posterior disc contour abnormality or spinal canal stenosis is present. MACRO: None Signed by: Bernadette Tapia 01/10/2024 9:34 PM Dictation workstation: [id number] No image results found. No diagnosis found. [...] Jia Nichols MD Interventional Pain Medicine Fellow [facility] This note was generated with the aid of dictation software, there may be typographical errors despite my attempts at proofreading. Cosigned by Drake Kenyon MD PhD at 01/27/2024 1:05 PM EST documented in this [facility] Work Phone: 1(756) 851-632911-04-2024 Nurse Note* Iliana Fox RN - 01/27/2024 7:58 AM EST Pain level listed at 7/10 for lower back discomfort.Patient states this is a tolerable pain level for her. [facility] Work Phone: [phone]) 241-602511-04-2024 Plan of care note* Care Plan - Iliana Fox RN - 01/27/2024 7:34 AM EST The patient's goals for the shift include pain management. The clinical goals for the shift include pain control. [facility] Work Phone: [phone]) 789-696211-04-2024 Nurse Note* Curtis Mckenzie - 01/27/2024 7:10 AM EST Vitals done Currently NPO Call light within reach [facility] Work Phone: [phone]) 163-806411-04-2024 Plan of care note* Care Plan - [...] opioid side effects throughout the shift Reactivated [facility] Work Phone: [phone]) 786-886811-04-2024 History and physical note* Chirag Miguel MD [...] 8 out of 10.She presented initially to [facility] ED and had a negative workup. Pain management was consulted, and patient was transferred to [facility] for consultation. Patient denies any new complaints [...] spine dated 01/01/2024; 12/18/2023; 10/31/2023;. ACCESSION NUMBER(S): [id number] ORDERING CLINICIAN: GERMAINE BLAIR TECHNIQUE: Sagittal T1, [...] STIR hyperintense edema. There is redemonstration of rdqf-br-exflduft disc height loss at the level of L4-L5, with intervertebral disc space is preserved at other levels. Lower thoracic spinal cord unremarkable in appearance. Conus medullaris terminates at the level of L1-L2. There is redemonstration of circumferential disc bulge with superimposed left subarticular disc protrusion at the level of L4-L5 which contributes to phzc-nc-faonqptj spinal canal and mild left-sided neural foraminal [...] at the level of L4-L5, contributing to abaz-ju-xesnzafx spinal canal and mild left-sided neural foraminal narrowing and likely abutment/effacement of the traversing left L5 nerve. 2. No new abnormality is identified in the lumbar spine in the interim to recent MRI on 01/01/2024. No new posterior disc contour abnormality or spinal canal stenosis is present. MACRO: None Signed by: Bernadette Tapia 01/10/2024 9:34 PM Dictation workstation: [id number] Results for orders placed or performed during [...] SCDs for DVT ppx. Chirag Miguel MD [facility] Work Phone: 1(656) 615-134211-04-2024 History and physical note* Chirag Miguel MD [...] 8 out of 10.She presented initially to [facility] ED and had a negative workup. Pain management was consulted, and patient was transferred to [facility] for consultation. Patient denies any new complaints [...] spine dated 01/01/2024; 12/18/2023; 10/31/2023;. ACCESSION NUMBER(S): [id number] ORDERING CLINICIAN: GERMAINE BLAIR TECHNIQUE: Sagittal T1, [...] STIR hyperintense edema. There is redemonstration of lkge-uf-djfcaytr disc height loss at the level of L4-L5, with intervertebral disc space is preserved at other levels. Lower thoracic spinal cord unremarkable in appearance. Conus medullaris terminates at the level of L1-L2. There is redemonstration of circumferential disc bulge with superimposed left subarticular disc protrusion at the level of L4-L5 which contributes to sndz-jc-mabxzzvq spinal canal and mild left-sided neural foraminal [...] at the level of L4-L5, contributing to hqjv-kg-pkbwszde spinal canal and mild left-sided neural foraminal narrowing and likely abutment/effacement of the traversing left L5 nerve. 2. No new abnormality is identified in the lumbar spine in the interim to recent MRI on 01/01/2024. No new posterior disc contour abnormality or spinal canal stenosis is present. MACRO: None Signed by: Bernadette Tapia 01/10/2024 9:34 PM Dictation workstation: [id number] Results for orders placed or performed during [...] ppx. Chirag Miguel MD documented in this [facility] Work Phone: 1(296) 441-999811-04-2024 Nurse Note* Elke Gtz RN - 01/27/2024 3:50 AM EST Patient arrived on cart via [facility] to room 223 at 0330. Patient is alert and oriented x 4. Vitals are stable. Patient rates left lower back pain 11/01. Dr. Miguel notified of patient's arrival. Patient oriented to room and call light. [facility] Work Phone: 1(745) 450-528011-03-2024 Emergency department Note* Sirisha Fischer PA-C - 01/26/2024 4:34 PM EST [...] at this time. History provided by: Patient club former used: No Patient History Past Medical History: [...] at the level of L4-L5, contributing to qxfw-ks-dearjpmx spinal canal and mild left-sided neural foraminal narrowing and likely abutment/effacement of the traversing left L5 nerve. 2. No new abnormality is identified in the lumbar spine in the interim to recent MRI on 01/01/2024. No new posterior disc contour abnormality or spinal canal stenosis is present. MACRO: None Signed by: Bernadette Tapia 01/10/2024 9:34 PM Dictation workstation: [id number] [] 1824 Spoke with pain management who recommends admission versus treatment outpatient. Patient wouldlike to be admitted at this time. pain management will see patient in the morning [] 1827 Spoke with Giulia Man from [facility] who accepts transfer of this patient [] ED Course User Index [] Sirisha Fischer PA-C Diagnoses as of 01/26/24 183 Acute left-sided low back pain with left-sided sciatica No data recorded [place] Coma Scale Score: 15 (01/26/24 1646 : [...] 2 mgof morphine. would like transferred to [facility] for further evaluation and treatment. Do not think imaging is indicated at this time. Patient was accepted to [facility].I did order a CBC and CMP on her and attending physician Dr. Corbin will follow up with these labs. My shift ended at [address] Corbin pending transfer. I did speak with pain management as noted above who states they will see patient tomorrow morning. Discussed with MD from [facility] as noted above who accepted transfer of this patient. Patient will be transferred via BLS to [facility]. Differential diagnosis: Back strain, AAA rupture, cauda equina syndrome, cord compression, compression fracture, epidural abscess, epidural hematoma, herniated disc, sciatica, nephrolithiasis, ureterolithiasis, PE, pyelonephritis, vertebral fracture, pancreatitis, zoster Disposition/treatment 1. See above Shared decision-making was used patient feels comfortable being transferred to [facility] for further evaluation and treatment. Procedure Procedures Sirisha Fischer PA-C 01/26/24 1835 Cosigned by Bib [...] new injury or trauma. documented in this [facility] Work Phone: 1(554) 283-410511-03-2024 Emergency department Triage note* Fatou Morales RN - 01/26/2024 4:34 PM EST Pt c/o worsening back pain that started today. Pt has a slipped disc in L5. Pt scheduled to have back surgery on 02/05. Pt denies new injury or trauma. [facility] Work Phone: 1([phone]) 182-126011-03-2024 Physician Emergency department Note* Sirisha Fischer PA-C - 01/26/2024 4:34 PM EST [...] at this time. History provided by: Patient club former used: No Patient History Past Medical History: [...] & MDM ED Course as of 01/26/24 183 Sun Jan 26, 20241723 Patient was given topical lidocaine patch, Robaxin, Toradol, dexamethasone in the ED [] 1728 IMPRESSION: 1. Unchanged circumferential disc bulge with superimposed left subarticular disc herniation at the level of L4-L5, contributing to duoy-uj-jqbgfxmp spinal canal and mild left-sided neural foraminal narrowing and likely abutment/effacement of the traversing left L5 nerve. 2. No new abnormality is identified in the lumbar spine in the interim to recent MRI on 01/01/2024. No new posterior disc contour abnormality or spinal canal stenosis is present. MACRO: None Signed by: Bernadette Tapia 01/10/2024 9:34 PM Dictation workstation: [id number] [] 182 Spoke with pain management who recommends admission versus treatment outpatient. Patient wouldlike to be admitted at this time. pain management will see patient in the morning [] 182 Spoke with Giulia Man from [facility] who accepts transfer of this patient [] ED Course User Index [] Sirisha Fischer PA-C Diagnoses as of 01/26/241830 Acute left-sided low back pain with left-sided sciatica No data recorded [place] Coma Scale Score: 15 (01/26/24 1646 : [...] 2 mgof morphine. would like transferred to [facility] for further evaluation and treatment. Do not think imaging is indicated at this time. Patient was accepted to [facility].I did order a CBC and CMP on her and attending physician Dr. Corbin will follow up with these labs. My shift ended at [address] Corbin pending transfer. I did speak with pain management as noted above who states they will see patient tomorrow morning. Discussed with MD from [facility] as noted above who accepted transfer of this patient. Patient will be transferred via BLS to [facility]. Differential diagnosis: Back strain, AAA rupture, cauda equina syndrome, cord compression, compression fracture, epidural abscess, epidural hematoma, herniated disc, sciatica, nephrolithiasis, ureterolithiasis, PE, pyelonephritis, vertebral fracture, pancreatitis, zoster Disposition/treatment 1. See above Shared decision-making was used patient feels comfortable being transferred to [facility] for further evaluation and treatment. Procedure Procedures Sirisha Fischer PA-C 01/26/24 5045 Cosigned by Bib Bowman MD at 01/26/2024 [...] does agree to consult on case tomorrow. [facility] Work Phone: 1(112) 634-219011-02-2024 Hospital Discharge instructions Patient Education 01/25/2024 16:05:44 Chronic Back Pain, Ojwp-qr-Eruv Chronic Back Pain Chronic back pain is [...] pull them backward. 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 Take short [...] to your body. ?Avoid twisting. Medicines Take uqxq-aqn-tqeefwu and prescription medicines only as told by [...] keep your pee (urine) pale yellow. ?Take jdbo-bqz-luohfyb or prescription medicines. ?Eat foods that are [...] provider. Document Revised: 10/29/2022 Document Reviewed: 10/29/2022 [employer] Patient Education 2023 [employer]. Follow Up Care 01/25/2024 15:23:27 With:Pain Clinic: [facility] [phone] Address:Unknown When:01/28/2024 16:05:07 Comments:Call to schedule a follow-up appointment with your neurosurgeon and/or pain management for further management of care. Use the prednisone as prescribed. Use the Flexeril and lidocaine patches as needed for pain along with Tylenol and Motrin. Return to ED with any new or worsening symptoms. With:Mayra Rosas Address: [address] [place], [place] [address] Business (1) When:Within 3 Day(s) [facility] [phone] NoteED Patient Education Note Orthopedics Chronic Back [...] them backward. ??? 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 ??? Take [...] body. ? Avoid twisting. Medicines ??? Take yjvz-xnp-rlidbyg and prescription medicines only as told by [...] your pee (urine) pale yellow. ? Take lmss-hor-eyvvuhf or prescription medicines. ? Eat foods that [...] provider. Document Revised: 10/29/2022 Document Reviewed: 10/29/2022 [employer] Patient Education ? 2023 [employer].[facility] 01-25-2024 NoteProgress Note-Nurse leaves with [facility]im[facility]Shar [facility]01-[facility] Emergency department Note * Crystal Huff APRN-WAIVER ANALYST - 01/24/2024 7:22 PM EDT HPI Chief [...] low back pain. History provided by: Patient club former used: No Patient History Past Medical History: [...] back pain without sciatica No data recorded [place] Coma Scale Score: 15 (01/24/24 2011 : Coty Diego LPN) Medical Decision Making Patient was given one-time dose of morphine. Should follow-up with her surgeon as scheduled for herprocedure. Return with any worsening symptoms or additional concerns. Procedure Procedures ROX Ennis 01/24/24 2016 documented in this [facility] Work Phone: 1(527) 808-435111-01-2024 Physician Emergency department Note* ROX Ennis - [...] low back pain. History provided by: Patient club former used: No Patient History Past Medical History: [...] back pain without sciatica No data recorded [place] Coma Scale Score: 15 (01/24/24 2011 : Coty Diego LPN) Medical Decision Making Patient was given one-time dose of morphine. Should follow-up with her surgeon as scheduled for herprocedure. Return with any worsening symptoms or additional concerns. Procedure Procedures ROX Ennis 01/24/242015 [facility] Work Phone: 1([phone]) 678-697710-31-2024 Hospital Discharge instructions Patient Education 01/23/2024 18:34:26 Abdominal Pain, Adult, Hupl-pp-Zysa Abdominal Pain, Adult Many things can cause belly (abdominal) pain. In most cases, belly pain is not a serious problem and can be watched and treated at home. But in some cases, it can be serious. Your doctor will try to find the cause of your belly pain. Follow these instructions at home: Medicines Take jjma-uew-cdcjvqf and prescription medicines only as told by [...] provider. Document Revised: 12/26/2022 Document Reviewed: 12/26/2022 [employer] Patient Education 2023 [employer]. Follow Up Care 01/23/2024 13:54:29 With:Mayra Rosas Address: [address], [facility] [place] [id number] [facility] (1) When:01/26/2024 18:34:07 Comments:Call to schedule a follow-up appoint with your family physician in the next 2 to 3 days. Continue to elevate your feet and wear compression stockings. Return to ED with any new or worsening symptoms. [facility] 10-31-2024 NoteED Patient Education Note Gastroenterology Abdominal Pain, Adult Many things can cause belly (abdominal) pain. In most cases, belly pain is not a serious problem and can be watched and treated at home. But in some cases, it can be serious. Your doctor will try to find the cause of your belly pain. Follow these instructions at home: Medicines ??? Take oqhn-vti-hznxxpf and prescription medicines only as told by [...] Reviewed: 12/26/2022 [employer] Patient Education ? 2023 [employer] Academia[facility] Evaluation + Plan noteExtracted from:Title:ED NoteAuthor:Matthew MILES, Zhane EnriquezDate:01/23/24 Abdominal pain, RUQ (R10.11: Right upper quadrant pain) Bilateral leg edema (R60.0: Localized edema) COPD exacerbation (J44.1: Chronic obstructive pulmonary disease with (acute) exacerbation) Orders: acetaminophen-oxycodone, 1 tab(s), Tab, Oral, Once, Stop date 01/23/24 18:32:00 EDT, STAT, Start date 01/23/24 18:32:00 EDT azithromycin, = 1 packet(s), Oral, As Directed, as directed on package labeling, X 5 day(s), # 6 tab(s), Refills(s) 0, Pharmacy: [facility]/pharmacy #[id number], 160, cm, 01/23/24 14:03:00 EDT, Height/Length Dosing, 114.8, kg, 01/23/24 14:03:00 EDT, Weight Dosing calcium carbonate, 500 mg = 1 tab(s), Tab-Chew, Oral, Once, Stop date 01/23/24 18:18:00 EDT, STAT, Start date 01/23/24 18:18:00 EDT, 01/23/24 18:18:00 EDT morphine, 4 mg = 1 mL, Injection, IntraMuscular, Once, Stop date 01/23/24 16:12:00 EDT, STAT, Startdate 01/23/24 16:12:00 EDT, 01/23/24 16:12:00 EDT predniSONE, 50 mg = 1 tab(s), Oral, Daily, X 5 day(s), # 5 tab(s), Refills(s) 0, Pharmacy: [facility]/pharmacy #[id number], 160, cm, 01/23/24 14:03:00 EDT, Height/Length [...] perf and 3D Kenan 07/17/23 [facility] 10-29-2024 Emergency department Note* ROX Rivero - 01/21/2024 1:56 PM EDT Emergency Department Encounter [facility] EMERGENCY MEDICINE Patient: Jerad Tracy : 1975 Date of Evaluation: 01/21/2024 ED Provider: ROX Rivero Chief Complaint Chief Complaint Patient presents with Back Pain [place] (Location/Symptom, Timing/Onset, Context/Setting, Quality, Duration, Modifying Factors, Severity) Note limiting factors. Limitations to History: none Historian: self Records reviewed: EMR inpatient and outpatient notes, Care Everywhere Jerad Tracy is a 48 y.o. female who presents to the emergency department complaining of left lowerextremity numbness, pain, has a known disc herniation to L4, L5 and is scheduled for surgery on [id number], is on oxycodone, Zanaflex with minimal relief of symptoms. Denies any new urinary or bowel incontinence. ROS: Review of Systems 14 systems reviewed and otherwise acutely negative except as in the [place]. Past History Past Medical History: Diagnosis Date [...] min Stress: No Stress Concern Present (01/03/2024) [employer] [place] [employer] - Occupational Stress Questionnaire Feeling of Stress : Not at all Social Connections: Socially Isolated (01/03/2024) Social Connection and Isolation Panel [NHANES] Frequency of Communication with Friends and Family: More than three times a week Frequency of Social Gatherings with Friends and Family: Once a week Attends Orthodox Services: Never Active Member of Clubs or [...] hr hands and ankles. [facility] Work Phone: 1(469) 690-509910-29-2024 Emergency department Triage note* Bree Cordoba RN [...] noticed swelling in hr hands and ankles. [facility] Work Phone: 1([phone]) 248-657510-29-2024 Physician Emergency department Note* ROX Rivero - 01/21/2024 1:56 PM EDT Emergency Department Encounter [facility] EMERGENCY MEDICINE Patient: Jerad Tracy : 1975 Date of Evaluation: 01/21/2024 ED Provider: ROX Rivero Chief Complaint Chief Complaint Patient presents with Back Pain [place] (Location/Symptom, Timing/Onset, Context/Setting, Quality, Duration, Modifying Factors, Severity) Note limiting factors. Limitations to History: none Historian: self Records reviewed: EMR inpatient and outpatient notes, Care Everywhere Jerad Demarcus is a 48 y.o. female who presents to the emergency department complaining of left lowerextremity numbness, pain, has a known disc herniation to L4, L5 and is scheduled for surgery on ivv03bu, is on oxycodone, Zanaflex with minimal relief of symptoms. Denies any new urinary or bowel incontinence. ROS: Review of Systems 14 systems reviewed and otherwise acutely negative except as in the [place]. Past History Past Medical History: Diagnosis Date [...] min Stress: No Stress Concern Present (01/03/2024) [place] [employer]ational Health - Occupational Stress Questionnaire Feeling of Stress : Not at all Social Connections: Socially Isolated (01/03/2024) Social Connection and Isolation Panel [NHANES] Frequency of Communication with Friends and Family: More than three times a week Frequency of Social Gatherings with Friends and Family: Once a week Attends Orthodox Services: Never Active Member of Clubs or [...] provider for clarification. ROX Rivero APRN-CNP 01/21/24 1730 [facility] Work Phone: 1([phone]) 860-678810-22-2024 Hospital Discharge instructions Patient Education 01/14/2024 20:55:36 [...] pull them backward. 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 Take brief [...] to your body. ?Avoid twisting. Medicines Take ttxm-zhg-rxkjlly and prescription medicines only as told by [...] keep your pee (urine) pale yellow. ?Take gujp-lte-nzwwwrk or prescription medicines. ?Eat foods that are [...] provider. Document Revised: 10/29/2022 Document Reviewed: 10/29/2022 [employer] Patient Education 2023 [employer]. Follow Up Care 01/14/2024 19:16:02 With:Mayra Rosas [facility] [address] [facility] [place] [id number] [facility] (1) When:01/17/2024 20:53:26 Comments:Call the office of [...] breath, or any new or worsening symptoms. [facility] 10-22-2024 NoteED Patient Education Note Orthopedics Chronic [...] them backward. ??? 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 ??? Take [...] body. ? Avoid twisting. Medicines ??? Take oezd-zqq-bfojdwz and prescription medicines only as told by [...] your pee (urine) pale yellow. ? Take podu-unk-fmrhfdo or prescription medicines. ? Eat foods that [...] provider. Document Revised: 10/29/2022 Document Reviewed: 10/29/2022 [employer] Patient Education ? 2023 [employer].[facility] 01-14-2024 Evaluation + Plan noteExtracted from:Title:ED NoteAuthor:Nikhil Tubbs DODate:01/14/24 Chronic back pain (M54.9: Do rsalgia, unspecified) Other chronic pain (G89.29: Other chronic pain) Orders: morphine, 8 mg = 2 mL, Injection, IntraMuscular, Once, Stop date 01/14/24 20:52:00 EDT, STAT, Startdate 01/14/24 20:52:00 EDT, 01/14/24 20:52:00 EDT Future Scheduled Tests Laboratory* TSH With T4fr Reflex 07/17/23 * Urinalysis with Micro 07/17/23 * Lipid Panel 07/17/23 * Drug Screen Urine 07/17/23 Radiology* MA Mamm Screen w/CAD if perf and 3D Kenan 07/17/23 [facility] 10-22-2024 History of Present illness Narrative* Judah [...] She has done physic al therapy at [facility] and continues to do home exercises. She [...] dehiscence. Judah Woodard MD documented in this [facility] Work Phone: 1(773) 653-626310-21-2024 Emergency department Note* Crystal Huff, HOT BLASTER-WAIVER ANALYST - 01/13/2024 1:07 PM EDT HPI Chief Complaint Patient presents with Back Pain Pt here for low back pain sees the surgeon tomorrow can't take the pain 48-year-old female presents emergency department, complaining of back pain. Patient states she has known slipped disc, recently at MRI and is due to see spine surgery at [facility] tomorrow. Patient states today pain is [...] of pain medication. History provided by: Patient club former used: No Patient History Past Medical History: [...] Drug use: Not Currently Comment: last use 2015- heroin Physical Exam ED Triage Vitals [01/13/24 [...] worsening symptoms or additional concerns. Procedure Procedures Crystal Huff, HOT BLASTERPATRICIA 01/13/24 0802 documented in this [facility] Work Phone: [phone] 415-419910-21-2024 Physician Emergency department Note* ROX Ennis - 01/13/2024 1:07 PM EDT HPI Chief Complaint Patient presents with Back Pain Pt here for low back pain sees the surgeon tomorrow can't take the pain 48-year-old female presents emergency department, complaining of back pain. Patient states she has known slipped disc, recently at MRI and is due to see spine surgery at [facility] tomorrow. Patient states today pain is [...] of pain medication. History provided by: Patient club former used: No Patient History Past Medical History: [...] concerns. Procedure Procedures ROX Ennis 01/13/24 1442 [facility] Work Phone: 1([phone]) 486-637310-18-2024 Emergency department Note* Germaine Blair PA-C - [...] at the level of L4-L5, contributing to uqhf-iv-rmtjxdvl spinal canal and mild left-sided neural foraminal narrowing and likely abutment/effacement of the traversing left L5 nerve. 2. No new abnormality is identified in the lumbar spine in the interim to recent MRI on 01/01/2024. No new posterior disc contour abnormality or spinal canal stenosis is present. MACRO: None Signed by: Bernadette aTpia 01/10/2024 9:34 PM Dictation workstation: [id number] Procedures Medical Decision Making I consulted with [...] she was admitted to the hospital at [facility] with worsening of symptoms. She had [...] Germaine Blair PA-C 01/10/242217 documented in this [facility] Work Phone: 1(526) 268-579310-18-2024 Physician Emergency department Note* Germaine Blair PA-C [...] at the level of L4-L5, contributing to gbyc-jr-mchxswcr spinal canal and mild left-sided neural foraminal narrowing and likely abutment/effacement of the traversing left L5 nerve. 2. No new abnormality is identified in the lumbar spine in the interim to recent MRI on 01/01/2024. No new posterior disc contour abnormality or spinal canal stenosis is present. MACRO: None Signed by: Bernadette Tapia 01/10/2024 9:34 PM Dictation workstation: [id number] Procedures Medical Decision Making I consulted with [...] she was admitted to the hospital at [facility] with worsening of symptoms. She had [...] Lumbar disc herniation Germaine Blair PA-C 01/10/242217 [facility] Work Phone: 1([phone]) 492-387210-16-2024 Hospital course Narrative* Shelton Beck DO - [...] that she was supposed to see Dr. Alicia, unfortunately appointment coincided with her last admission. [...] Center 01/14/2024 1:00 PM Judah Woodard MD [id number] [place] 01/17/2024 9:20 AM Marlee Fitzpatrick MD [id number] [place] 06/29/2024 8:00 AM Chidi Joseph MD [id number] [place] Shelton Beck DO documented in this [facility] Work Phone: 1([phone]) 220-590110-16-2024 History of Present illness Narrative* Kindra Kowalski RN - 01/08/2024 11:10 AM EDT 01/08/24 1110 Discharge Planning Home or Post Acute Services In home services Type of Home Care Services Home PT;Home OT Expected Discharge Disposition Home H Met with patient at bedside to discuss discharge plans. Explained that patient is not eligible for SNF but I could set her up with [facility] for pt/ot. Patient is agreeable. Patient lives in [place] which limits the available [facility] agencies. Spoke with [facility] and they do not service that area. Referralssent in careport- need accepting facility. * Shelton Ebony, DO - 01/07/2024 8:14 PM EDT Jerad [...] concern for spondylolisthesis. COMPARISON: None. ACCESSION NUMBER(S): [id number] ORDERING CLINICIAN: ANGELA GONZALEZ FINDINGS: Multiple views of the lumbar spine are obtained. Alignment is intact. The vertebral body heights are preserved. Disc space loss at L4/L5 with endplate sclerosis and osteophytes . No acute fracture-dislocation. Impression: Discogenic degenerative changes as described. Signed by: Danielle Orozco 01/02/2024 9:15 AM Dictation workstation: [id number] Physical Exam Constitutional: Obese, pleasant, alert active, [...] Therapy Evaluation Patient Name: Jerad Collins Department: [place] [address] Room: [address] [place] [address] Today's Date: 01/07/2024 Time Calculation Start Time: [...] worsening of symptoms. Referred By: Oanh Gallo (HOT BLASTER-WAIVER ANALYST) Past Medical History Relevant to Rehab: Past [...] Prior Function Per Pt/Caregiver Report Level of [place]: Independent with ADLs and functional transfers, Independent with homemaking with ambulation Receives Help From: (Significant other) ADL Assistance: Independent Homemaking Assistance: Independent Ambulatory Assistance: (Pt reports recent FWW usage since last admission. 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) Hand Dominance: Right Prior Function Comments: [...] Strength: Deficits, Due to pain Outcome Measures: [facility] Basic Mobility Turning from your back [...] Therapy Evaluation Patient Name: Jerad Collins Department: [place] [address] Room: [address] [place] [address] Today's Date: 01/07/2024 Time Calculation Start Time: 1039 Stop Time: 1054 Time Calculation (min): 15 min Assessment: OT Assessment: Impaired ADLs Prognosis: Excellent Barriers to Discharge: None Evaluation/Treatment Tolerance: Patient limited by pain Medical Staff Made Aware: Yes End of Session Communication: Bedside nurse, Senior Branch Manager End of Session Patient Position: Bed, 3 [...] low back pain Referred By: Jose Gallo APRN-WAIVER ANALYST Past Medical History Relevant to Rehab: Past [...] Family/Caregiver Present: No Prior to Session Communication: Senior Branch Manager Patient Position Received: Bed, 3 rail up, [...] Toilet: Handicapped height Prior Function: Level of [place]: Independent with ADLs and functional transfers, Independent with homemaking with ambulation Receives Help From: Family ADL Assistance: Independent Homemaking Assistance: Independent Ambulatory Assistance: (approx 1 week ago using FWW) Vocational: Other (Comment) (On medical leave, pt. 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 ADL: LE Dressing Assistance: Stand by LE [...] and LUE LUE: Within Functional Limits Outcome Measures:AMPAC Daily Activity Putting on and taking off [...] Exercises/Activities, Patient/Caregiver Asked AppropriateQuestions documented [facility] Work Phone: 1(991) 291-759610-16-2024 Plan of care note* Care Plan - Berenice Collazo RN - 01/08/2024 9:55 AM EDT The patient's goals for the shift include maintain safety The clinical goals for the shift include maintain safety Over the shift, the patient did not make progress toward the following goals. Barriers to progression include weakness. Recommendations to address these barriers include safety precautions. [facility]10-16-2024 Miscellaneous Notes* Care Plan - Berenice [...] the shift Outcome: Progressing documented in this [facility]Joint [facility] Work Phone: 1([phone]) 153-992310-15-2024 Nurse Note* Daysi Santos RN - 01/07/2024 11:48 PM EDT Daysi gave report to Mary Ann; whom assumed care of patient [facility] Work Phone: 1([phone]) 349-985010-15-2024 Nurse Note* Daysi Santos RN - 01/07/2024 11:48 PM EDT Daysi gave report to Mary Ann; whom assumed care of patient documented in this encounterJoint [facility] Work Phone: 1(521) 951-119410-15-2024 Plan of care note* Care Plan - [...] monitored and maintained or improved Outcome: Progressing [facility] Work Phone: 1(335) 345-560010-15-2024 Plan of care note* Care Plan - [...] for fall in the hospital Outcome: Progressing [facility]10-15-2024 Plan of care note* Care Plan [...] pain meds throughout the shift Outcome: Progressing [facility]10-14-2024 History and physical note* Jose Gallo APRN-WAIVER ANALYST - 01/06/2024 11:28 PM EDT History Of [...] OT Anxiety/depression-continue Prozac DVT prophylax-Lovenox ROX Bonds [facility] Work Phone: 1([phone]) 969-622910-14-2024 History and physical note* ROX Bonds - [...] DVT prophylax-Lovenox ROX Bonds documented in this [facility] Work Phone: 1(860) 208-788210-14-2024 Emergency department Note* Allyson Navarrete RN - [...] to manage her pain. documented in this [facility] Work Phone: 1([phone]) 906-821810-14-2024 Emergency department Triage note* Allyson Navarrete RN [...] at home trying to manage her pain. [facility] Work Phone: [phone] 180-645410-14-2024 Hospital Discharge instructions Patient Education 01/06/2024 13:12:37 [...] pull them backward. 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 [...] a greater risk of getting burned. Take tulf-wif-pikjrrs and prescription medicines only as told by [...] provider. Document Revised: 09/14/2021 Document Reviewed: 09/14/2021 [employer] Patient Education 2023 [employer]. Follow Up Care 01/06/2024 11:36:43 With:Mayra Rosas Address: [address] [place], [place] [address] Business (1) When:01/09/2024 13:06:02 [facility] 10-14-2024 NoteED Patient Education Note Orthopedics Lumbosacral [...] them backward. ? 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 [...] greater risk of getting burned. ? Take iztb-bfs-futctkg and prescription medicines only as told by your health care provider. General instructions ? Sleep on a firm mattress in a comfortable position. Try lying on your side with your knees slightly bent. If you lie on your back, put a pillow under your knees. ? Ask yo (more content not included)...[facility]10-12-2024 History of Present illness Narrative* Seun Sher, OT - 01/04/2024 1:43 PM EDT Occupational Therapy Evaluation Patient Name: Jerad Collins Department: [facility] Room: [facility]/62-A Today's Date: 01/04/2024 Time Calculation Start Time: [...] Adaptive Equipment: None Prior Function: Level of Corson: Independent with ADLs and functional transfers Receives [...] Gross Grasp: Functional Coordination: Functional Outcome Measures: [facility] Daily Activity Putting on and taking [...] concern for spondylolisthesis. COMPARISON: None. ACCESSION NUMBER(S): [id number] ORDERING CLINICIAN: ANGELA GONZALEZ FINDINGS: Multiple views of the lumbar spine are obtained. Alignment is intact. The vertebral body heights are preserved. Disc space loss at L4/L5 with endplate sclerosis and osteophytes . No acute fracture-dislocation. Impression: Discogenic degenerative changes as described. Signed by: Danielle Orozco 01/02/2024 9:15 AM Dictation workstation: [id number] Physical Exam Constitutional: Obese, pleasant, alert active, [...] Therapy Evaluation Patient Name: Jerad Collins Department: [facility] Room: 623/623-A Today's Date: 01/03/2024 Time Calculation Start Time: [...] Prior Function Per Pt/Caregiver Report Level of Corson: Independent with ADLs and functional transfers, Independent with homemaking with ambulation Receives Help From: (SO when he is not traveling for work) ADL Assistance: Independent Homemaking Assistance: Independent Ambulatory Assistance: Independent Vocational: Other (Comment) (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 N Transportation Needs In the [...] relatives? Once How often do you attend caodaism or adventism services? Never Do you belong to any clubs or organizations such as caodaism groups, unions, fraternal or athletic groups, or [...] In the past 12 months has the [employer], gas, oil, or water [employer] threatened to shut off services in your home? No Health Literacy How often do you need to have someone help you when you read instructions, pamphlets, or other written material from your doctor or pharmacy? Never * Fozia Daly RN - 01/03/2024 2:30 PM EDT 01/03/24 1534 [facility] Disability Status Are you deaf or [...] 1535 Discharge Planning Living Arrangements Spouse/significant other ([phone]) Support Systems Spouse/significant other;Children Assistance Needed SALES SERVICE COORDINATOR; Independent w/ADL/IADL, no asst device, but currently [...] were you homeless or living in a fpc (including now)? N Transportation Needs In the past 12 months, has lack of transportation kept you from medical appointments or from getting medications? no (PCP listed, scheduled appointment 01/17/2024/family will drive to appointment) In the past 12 months, has lack of transportation kept you from meetings, work, or from getting things needed for daily living? No Senior Branch Manager Note: Met patient at bedside to discuss discharge planning, explained my role as wound care center consultant Plan: per chart review/ Neurosurgery Recommend pain management team consultation. Status: Inpatient d/t Left leg weakness,spinal stenosis of lumbar region Payor: [employer] Medicaid Disposition: PT/OT evals pending Fozia MARQUEZ RN TCC * Jazmyn Ohara, HOT BLASTER-WAIVER ANALYST - 01/02/2024 9:48 AM EDT Jerad Collins [...] concern for spondylolisthesis. COMPARISON: None. ACCESSION NUMBER(S): [id number] ORDERING CLINICIAN: ANGELA GONZALEZ FINDINGS: Multiple views of the lumbar spine are obtained. Alignment is intact. The vertebral body heights are preserved. Disc space loss at L4/L5 with endplate sclerosis and osteophytes . No acute fracture-dislocation. Impression: Discogenic degenerative changes as described. Signed by: Danielle Orozco 01/02/2024 9:15 AM Dictation workstation: [id number] Physical Exam Vitals reviewed. Constitutional: Appearance: Normal [...] by: Danielle Orozco 01/02/2024 9:15 AM Dictationworkstation: [id number] Assessment/Plan Acute worsening of chronic low back [...] Problem List and refresh.. Pharmacy reviewedthe patient's qgywn-rg-xnduofhtb medications and allergies for accuracy. The list below reflectives the updated SALES SERVICE COORDINATOR list. Please review each medication in order [...] Below are additional concerns with the patient's SALES SERVICE COORDINATOR list. The following updates were made to the Prior to Admission medication list: Source of Information: Medications ADDED: N/a Medications CHANGED: N/a Medications REMOVED: N/a Medications NOT TAKING: N/a Allergy reviewed : Yes Comments: confirmed meds with patient Oliva Mccullough documented in this [facility] Work Phone: 1([phone]) 480-645210-12-2024 Plan of care note* Care Plan - [...] include patient will remain free of falls [facility]10-12-2024 Miscellaneous Notes* Care Plan - Yaritza [...] remain free from falls documented in this [facility] Work Phone: 1(305) 718-882410-12-2024 Plan of care note* Care Plan - Suzie Bello RN - 01/04/2024 1:11 AM EDT The patient's goals for the shift include vss The clinical goals for the shift include Patient will remain HDS Over the shift, the patient did not make progress toward the following goals. Barriers to progression include n/a. Recommendations to address these barriers include n/a. [facility]10-11-2024 Note* Significant Event - Rashad Christiansen [...] decompression. (Follow-up will be arranged by neurosurgery) [facility] Work Phone: 1(288) 171-725010-10-2024 Plan of care note* Care Plan - Suzie Bello RN - 01/02/2024 10:21 PM EDT The patient's goals for the shift include vss The clinical goals for the shift include Patient will remin HDS Over the shift, the patient did not make progress toward the following goals. Barriers to progression include n/a. Recommendations to address these barriers include n/a. [facility] Work Phone: [phone]) 373-841410-09-2024 Plan of care note* Care Plan - Maria Alejandra Wells RN - 01/01/2024 11:57 PM EDT The patient's goals for the shift include sleep comfortable The clinical goals for the shift include pain manage below 6/10 [facility]10-09-2024 Plan of care note* Care Plan - Joseph Hollins RN - 01/01/2024 11:41 PM EDT The patient's goals for the shift include decrease in pain The clinical goals for the shift include remain free from falls [facility] Work Phone: 1([phone]) 890-632110-09-2024 History and physical note* Simon Dominguez MD [...] COMPARISON: Lumbar spine MRI 12/18/2023 ACCESSION NUMBER(S): [id number] ORDERING CLINICIAN: MICHELE LION TECHNIQUE: Multiplanar multisequence [...] by: Claudio Balderas01/01/2024 5:46 PM Dictation workstation: [id number] Assessment/Plan Assessment & Plan Acute worsening of [...] care of this patient. Simon Dominguez MD [facility] Work Phone: 1(371) 863-154210-09-2024 History and physical note* Simon Dominguez MD [...] COMPARISON: Lumbar spine MRI 12/18/2023 ACCESSION NUMBER(S): [id number] ORDERING CLINICIAN: MICHELE LION TECHNIQUE: Multiplanar multisequence [...] by: Claudio Balderas01/01/2024 5:46 PM Dictation workstation: [id number] Assessment/Plan Assessment & Plan Acute worsening of [...] patient. Simon Dominguez MD documented in this [facility] Work Phone: 1(554) 494-811810-09-2024 NoteModerate canal stenosis at L4-5 secondary to disc bulge with crowding of the cauda equina nerve roots, slightly progressed from previous MRI 12/18/2023. Left paracentral disc protrusion at this level likely contacts the traversing left L5 nerve root. No abnormal enhancement. Signed by: Claudio Balderas 01/01/2024 5:46 PM Dictation workstation: [id number] Emergency department Note * [facility] - 01/01/2024 3:45 PM EDT Community Resource Name:No primary care physician Phone Number: Staff Member: Tracee Maurice Discussed the following topics on behalf of the patient: [] Behavioral Health Assistance [] Case Management [] Cupola Mechanic Assistance [] Digital Equity Assistance [] Dental [...] comment here] Patient does have a PCP, LANIW updated the patient chart. Next Steps: GIORGIO Perez CHW talked to patient regarding not having a primary care physician. Patient expressed that she hasan upcoming appointment with a new physician from named Dr. Marlee Fitzpatrick and [employer]. CHW updated the patient chart with the physician name added. Patient expressed appreciation. Responsible Staff GIORGIO Perez Department [facility] ED Targets GIORGIO Perez 01/01/24 1554 [facility]10-09-2024 Emergency department Note* GIORGIO Perez - 01/01/2024 3:45 PM EDT Community Resource Name:No primary care physician Phone Number: Staff Member: Tracee Maurice Discussed the following topics on behalf of the patient: [] Behavioral Health Assistance [] Case Management [] Cupola Mechanic Assistance [] Digital Equity Assistance [] Dental [...] comment here] Patient does have a PCP, LANIW updated the patient chart. Next Steps: GIORGIO Perez CHW talked to patient regarding not having a primary care physician. Patient expressed that she hasan upcoming appointment with a new physician from named Dr. Marlee Fitzaptrick and [employer]. CHW updated the patient chart with the physician name added. Patient expressed appreciation. Responsible Staff GIORGIO Perez Department [facility] ED Targets GIORGIO Perez 01/01/24 1554 * KASH Kay - 01/01/2024 12:11 PM EDT Chronic Lower back pain and is flaring up today documented in this [facility] Work Phone: [phone]) 666-960810-09-2024 Emergency department Triage note* KASH Kay - 01/01/2024 12:11 PM EDT Chronic Lower back pain and is flaring up today [facility] Work Phone: [phone] 122-324710-07-2024 Emergency department Note* Francisco J Daley PA-C [...] 2016- heroin Physical Exam ED Triage Vitals [12/30/23 191] Temperature Heart Rate Respirations BP 36.1 C [...] chronic low back pain No data recorded [place] Coma Scale Score: 15 (12/30/231911 : Elke [...] J Daley PA-C 12/30/231943 documented in this [facility] Work Phone: 1([phone]) 821-990110-07-2024 Physician Emergency department Note* Francisco J Daley [...] Procedure Procedures Francisco J Daley PA-C 12/30/231943 [facility] Work Phone: 1(889) 141-744010-04-2024 History of Present illness Narrative* Elke Adams MD - 12/27/2023 2:00 PM EDT [facility] Neurosurgery Diagnosis Jerad Collins was [...] tender and c/d/i Results documented in this [facility] Work Phone: 1(552) 842-689110-04-2024 Hospital Discharge instructions Patient Education 12/26/2023 22:27:28 [...] home: Managing pain, stiffness, and swelling Take lzcd-nol-xgynyxy and prescription medicines only as told by [...] each day. 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 Take fkjd-enc-ndrozyw and prescription medicines only as told by your health care provider, and apply heat or ice as told. This information is not intended to replace advice given to you by your health care provider. Make sure you discuss any questions you have with your health care provider. Document Revised: 06/02/2021 Document Reviewed: 06/02/2021 [employer] Patient Education 2023 [employer]. Follow Up Care 12/26/2023 18:04:50 With:Mayra Rosas Address: [facility] [address], [facility] [address] [place] [phone]- Business (1) When:12/29/2023 [facility] 10-03-2024 NoteED Patient Education Note Orthopedics Acute [...] Managing pain, stiffness, and swelling ? Take njgh-hxi-aphlmpp and prescription medicines only as told by [...] day. ? 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 ? (more content not included)...[facility]10-03-2024 Evaluation + Plan noteExtracted from:Title:ED NoteAuthor:Gumaro MILES, Manuel Hernandez.Date: 12/26/23 Low back pain (M54.50: Low b ack [...] day(s), # 10 cap(s), Refills(s) 0, Pharmacy: [facility], 160, cm, 12/26/23 18:17:00 EDT, Height/Length Dosing, 114.8, kg, 12/26/23 18:17:00 EDT, Weight Dosing tizanidine, 2 mg = 1 tab(s), Oral, q8hr, X 7 day(s), # 21 tab(s), Refills(s) 0, Pharmacy: [facility], 160, cm, 12/26/23 18:17:00 EDT, Height/Length [...] perf and 3D Kenan 07/17/23 [facility] 10-03-2024 NoteEducation Materials Orthopedics Lumbar Sprain A [...] and cold to the affected area. ? Fmfv-omj-xvrodxo medicines for pain and inflammation, such as [...] health care provider. General instructions ? Take fcur-mqe-tyelxne and prescription medicines only as told by your health care provider. ? Ask your health care provider if the medicine prescribed to you: ? Requires you to avoid driving or using machinery. ? Can cause constipation. You may need to take these actions to prevent or treat constipation: ? Drink enough fluid to keep your urine pale yellow. ? Take uzjb-fjg-bumndwb or prescription medicines. ? Eat foods that [...] care provider. Document Revised (more content not included)...[id number] Discharge instructions Patient Education 12/24/2023 17:00:04 [...] Follow these instructions at home: Medicines Take vejm-kkl-wkefdrz and prescription medicines only as told by [...] provider. Document Revised: 12/26/2022 Document Reviewed: 12/26/2022 [employer] Patient Education 2023 [employer]. Follow Up Care 12/24/2023 14:06:01 With:Mayra Rosas Address: [address], [address] [place] [phone]- Business (1) When:12/27/2023 16:49:49 Comments:Make sure to follow-up with your liver doctor as discussed. Return to the emergency room if your pain gets worse, vomiting, fever or any new symptoms. [facility] 10-01-2024 NoteED Patient Education Note Gastroenterology Abdominal [...] these instructions at home: Medicines ? Take pfzq-bwa-zayokxj and prescription medicines only as told by [...] provider. Document Revised: 12/26/2022 Document Reviewed: 12/26/2022 [employer] Patient Education ? 2023 [employer].[facility] 12-24-2023 Evaluation + Plan noteExtracted from:Title:ED NoteAuthor:Balbina Bryant M.D. HDate:12/24/23 1. Right upper quadrant abdo sung pain (R10.11: Right upper quadrant pain) Orders: dicyclomine, 20 mg = 2 cap(s), Oral, QID, # 20 cap(s), Refills(s) 0, Pharmacy: [facility], 160, cm, 12/24/23 14:30:00 EDT, Height/Length [...] perf and 3D Kenan 07/17/23 [facility] 10-01-2024 Evaluation + Plan note* Assessment & [...] your total body weight over 6-12 months [facility] Work Phone: 1(162) 870-492210-01-2024 Miscellaneous Notes* Assessment & Plan Note - [...] weight over 6-12 months documented in this [facility] Work Phone: 1(464) 612-307710-01-2024 History of Present illness Narrative* Chidi Joseph [...] AST 20 12/23/2023 PROT 6.3 (L) 12/23/2023 [id number] 155 04/01/2023 AFP 4 12/23/2023 BEATRIZ Negative 04/01/2023 MITOAB Negative 04/01/2023 CERULOPLSM 30.7 04/01/2023 HEPATOT Reactive (A) 04/01/2023 ASMAB Negative 04/01/2023 HEPBSAB <3.1 04/01/2023 HEPBCAB Nonreactive 04/01/2023 HEPBSAG Nonreactive 04/01/2023 HEPCAB Reactive (A) 02/13/2023 INR 0.9 12/23/2023 FERRITIN 77 04/01/2023 IRON 119 04/01/2023 IRONSAT 26 04/01/2023 Lab Results Component Value Date YEVV800 <10 04/01/2023 DERR755 <10 04/01/2023 Lab Results Component Value Date [...] Harshad Tran 12/24/2023 6:42 AM Dictation workstation: [id number] === 12/18/23 === MR THORACIC SPINE W [...] the cervical spine as detailed above, with mddv-hg-kifihhek narrowing present at the level of C6-C7 [...] Nevarez . This study was interpreted at [place], [place]. MACRO: None Signed by: Bernadette Tapia 12/19/2023 2:07 AM Dictation workstation: [id number] === 12/21/23 === CT LUMBAR SPINE WO IV CONTRAST - Impression - No acute fracture or traumatic subluxation of the lumbar spine. Lumbar spondylosis most pronounced at L4/L5. MACRO: None. Signed by: Tomás Hercules 12/21/2023 10:40 PM Dictation workstation: [id number] Hepatic fibrosis, advanced fibrosis This patient has [...] weight over 6-12 months [facility] Phone: 1(546) 323-702410-01-2024 Instructions* Patient Instructions* Elke Haas RN - 12/24/2023 10:40 AM EDT If you have any questions or need assistance, please don't hesitate to contact us. Our offices are located at [facility]. Please use the numbers below when calling. Dr. Joseph: Office [phone] Hepatology Nurse Coordinator: Elke SEXTON [phone] [phone] (See below for department name when scheduling) [...] The [facility] is located at 3 locations: Critical access hospital, [facility] PLEASE DO NOT EAT OR DRINK 3 HOURS BEFORE YOUR EXAM Due : Before next visit [x] FOLLOW UP (Department Gastro) Due : June [] Dr. Joseph Locations: MON: ANTHONY ([address]) 8:00 AM - 12:00 PM TUES: ANTH[place]Y ([address]) 8:00 AM - 3:40 PM [facility] Work Phone: 1(428) 685-752609-28-2024 Emergency department Note* Francisco J Daley PA-C - 12/21/2023 9:12 PM EDT Images from the original note were not included. HPI Chief Complaint Patient presents with Fall In through triage pt has chronic back. But pt states she trip over a dog and now pains worst then normal Back Pain 48-year-old female presents ER with complaint of acute low back injury. The patient has chronic back pain and states that her dog tripped her causing her to fall onto the side of her couch. She complains of low back pain. She denies any bladder or bowel dysfunction or saddle paresthesias since the injury. No medications were taken for back pain prior to arrival. Denies any numbness or tingling distally. History provided by: Patient Patient History Past Medical History: Diagnosis Date Anxiety Arthritis Bipolar disorder (Multi) Chronic pain disorder Depression HCV (hepatitis C [...] packs/day: 0.50 Average packs/day: 0.5 packs/day for 32.7 years (16.4 ttl pk-yrs) Types: Cigarettes Start date: 1991 Smokeless tobacco: Never Vaping Use Vaping status: Never Used Substance Use Topics Alcohol use: Never Drug use: Not Currently Comment: last use 2016- heroin Physical Exam ED Triage Vitals Temperature Heart Rate Respirations BP 12/21/23 2115 12/21/236 12/21/23211512/21/232115 36.3 C (97.3 F) 85 18 144/74 Pulse Ox Temp Source Heart Rate Source Patient Position 12/21/23211512/21/232114 -- -- 97 % Temporal BP Location FiO2 (%) -- -- Physical Exam Vitals and nursing note reviewed. Exam conducted with a coding quality coordinator present. Constitutional: General: She is awake. She is not in acute distress. Appearance: Normal appearance. She is well-developed and well-groomed. She is not ill-appearing, toxic-appearing or diaphoretic. Abdominal: General: Bowel sounds are normal. Palpations: Abdomen is soft. Tenderness: There is no abdominal tenderness. Musculoskeletal: General: Tenderness present. Cervical back: Normal. Thoracic back: Normal. Lumbar back: Spasms and tenderness present. Back: Comments: Tenderness over the area where she claims she bumped the arm of her couch. The area wherethe wound VAC was appears clean and dry there is no signs of any wound dehiscence. Skin: General: Skin is warm and dry. Findings: No bruising or erythema. Neurological: General: No focal deficit present. Mental Status: She is alert and oriented to person, place, and time. Mental status is at baseline. Psychiatric: Mood and Affect: Mood normal. Behavior: Behavior normal. Behavior is cooperative. Thought Content: Thought content normal. Judgment: Judgment normal. ED Course & MDM Diagnoses as of 12/21/232247 Acute exacerbation of chronic low back pain Contusion of lower back, initial encounter No data recorded Gadiel Coma Scale Score: 15 (12/21/232122 : Kassandra Sher RN) Medical Decision Making Temperature is 36 3 heart rate 92 respirations 18 blood pressure 134/97 pulse ox is 97% on room air Patient was given 1 Percocet 5-325 mg p.o. I have ordered imaging of the lumbar spine Imaging shows no acute fracture or traumatic subluxation lumbar spine, evidence of a lumbar spondylosis most pronounced at L4/L5. I discussed results of workup with the patient. Patient was discharged home with prescription for naproxen, Robaxin and topical lidocaine patches. Recommend she follow closely with her pain management doctor. She was encouraged to return back to the ER sooner with any concerns or worsening of symptoms all questions answered prior to discharge Procedure Procedures Francisco J Daley PA-C 12/21/23 9779 documented in this [facility] Work Phone: 1([phone]) 488-758209-28-2024 Physician Emergency department Note* Francisco J Daley PA-C - 12/21/2023 9:12 PM EDT Images from the original note were not included. HPI Chief Complaint Patient presents with Fall In through triage pt has chronic back. But pt states she trip over a dog and now pains worst then normal Back Pain 48-year-old female presents ER with complaint of acute low back injury. The patient has chronic back pain and states that her dog tripped her causing her to fall onto the side of her couch. She complains of low back pain. She denies any bladder or bowel dysfunction or saddle paresthesias since the injury. No medications were taken for back pain prior to arrival. Denies any numbness or tingling distally. History provided by: Patient Patient History Past Medical History: Diagnosis Date Anxiety Arthritis Bipolar disorder (Multi) Chronic pain disorder Depression HCV (hepatitis C [...] packs/day: 0.50 Average packs/day: 0.5 packs/day for 32.7 years (16.4 ttl pk-yrs) Types: Cigarettes Start date: 1991 Smokeless tobacco: Never Vaping Use Vaping status: Never Used Substance Use Topics Alcohol use: Never Drug use: Not Currently Comment: last use 2016- heroin Physical Exam ED Triage Vitals Temperature Heart Rate Respirations BP 12/21/23 2115 12/21/23211512/21/23211524 2116 36.3 C (97.3 F) 85 18 144/74 Pulse Ox Temp Source Heart Rate Source Patient Position 12/21/23211512/21/232114 -- -- 97 % Temporal BP Location FiO2 (%) -- -- Physical Exam Vitals and nursing note reviewed. Exam conducted with a coding quality coordinator present. Constitutional: General: She is awake. She is not in acute distress. Appearance: Normal appearance. She is well-developed and well-groomed. She is not ill-appearing, toxic-appearing or diaphoretic. Abdominal: General: Bowel sounds are normal. Palpations: Abdomen is soft. Tenderness: There is no abdominal tenderness. Musculoskeletal: General: Tenderness present. Cervical back: Normal. Thoracic back: Normal. Lumbar back: Spasms and tenderness present. Back: Comments: Tenderness over the area where she claims she bumped the arm of her couch. The area wherethe wound VAC was appears clean and dry there is no signs of any wound dehiscence. Skin: General: Skin is warm and dry. Findings: No bruising or erythema. Neurological: General: No focal deficit present. Mental Status: She is alert and oriented to person, place, and time. Mental status is at baseline. Psychiatric: Mood and Affect: Mood normal. Behavior: Behavior normal. Behavior is cooperative. Thought Content: Thought content normal. Judgment: Judgment normal. ED Course & MDM Diagnoses as of 12/21/232247 Acute exacerbation of chronic low back pain Contusion of lower back, initial encounter No data recorded [place] Coma Scale Score: 15 (12/21/232122 : Kassandra Sher RN) Medical Decision Making Temperature is 36 3 heart rate 92 respirations 18 blood pressure 134/97 pulse ox is 97% on room air Patient was given 1 Percocet 5-325 mg p.o. I have ordered imaging of the lumbar spine Imaging shows no acute fracture or traumatic subluxation lumbar spine, evidence of a lumbar spondylosis most pronounced at L4/L5. I discussed results of workup with the patient. Patient was discharged home with prescription for naproxen, Robaxin and topical lidocaine patches. Recommend she follow closely with her pain management doctor. She was encouraged to return back to the ER sooner with any concerns or worsening of symptoms all questions answered prior to discharge Procedure Procedures Francisco J Daley PA-C 12/21/23 2250 [facility] Work Phone: [phone]) 835-655909-26-2024 Hospital Discharge instructions* Discharge Instructions* Benita Atkinson DO - 12/19/2023 7:42 AM EDT Follow-up with your primary care doctor as needed. If you do not have a primary care doctor you maycall [phone] to make an appointment. Please see Neurosurgery as scheduled as well. -- [facility] [place] or * Attachments The following attachments cannot be sent through Care Everywhere. * Low Back Pain Discharge Instructions (Malagasy) [facility] Work Phone: [phone]) 329-507709-26-2024 History of Present illness Narrative* Benita Atkinson DO - 12/19/2023 7:41 AM EDT I received this patient during signout at 0700. Please see previous provider's note for detailed H&P, labs and imaging. Under my care, patient reassessed and remains clinically stable. See ED course below. @ ED Course as of 12/19/23 0743 Wed Dec 18, 2023 1601 Sed Rate(!): 51 Uptrending sed ret but normal CRP [AW] 1602 CBC and Auto Differential Unremarkable CBC without leukocytosis or anemia [AW] 1602 Comprehensive metabolic panel(!) Unremarkable CMP [AW] 1736 Urinalysis with Reflex Culture and Microscopic(!) Nitrite and leukocyte esterase negative [AW] Shira Dec 19, 2023 0740 I reevaluated patient and she is ambulatory with steady gait, I discussed with neurosurgery who recommend outpatient follow-up no further ED or inpatient interventions or admission at this time.I discussed plan with patient and she is agreeable. I did give IV analgesics prior to discharge. Patient states she has a safe ride with her . [SA] ED Course User Index [AW] Chelsea Wissman, DO [SA] Benita Atkinson DO Diagnoses as of 12/19/23 0743 Low back pain with sciatica, sciatica laterality unspecified, unspecified back pain laterality, unspecified chronicity @ Disposition: Discharged in stable condition. Patient will follow-up with the primary physician in the next 2-3 days. Return if worse. They understand return precautions and discharge instructions. Patient and family/friend/caregiver are in agreement with this plan. Patient seen and staffed with attending physician. Benita Atkinson DO EM PGY3 Associated attestation - Fatou Tellez MD - 12/19/2023 7:56 AM EDT I reviewed the resident/fellow's documentation and discussed the patient with the resident/fellow. I agree with the resident/fellow's medical decision making as documented in the note. [facility] Work Phone: [phone]) 269-375409-25-2024 Consult note* Claus Beck MD - 12/18/2023 10:52 PM EDTAssociated Order(s): IP CONSULT TO NEUROSURGERY Date of Service: 12/18/2023 Attending Provider: Lilia Talbert DO Reason for Consultation: Jerad Collins is being seen today for a consult requested by DO Clifford for post-op pain and symptoms. Subjective History of Present Illness: Karina is a 48 y.o. female with h/o chronic bilateral low back pain, neuropathic BLE pain (R>L), LL radiculopathy, HCV, GERD, depression, bipolar disorder, 09/22 s/p perc spinal cord stim placement, L buttock generator placement, p/w wound dehiscence, 10/12 s/p PICC, 10/13 s/p wound washout and removal of lead/generator, p/w pain around incision, 11/12 p/w wound dehiscence and pain, MRI LS 3.3 subcut aneous seroma, CT LS L1-4 fast stranding c/f cellulitis, 12/05 wound vac placed in ED 12/06 p/w woundvac disconnected and replaced, 12/09 p/w wound vac disconnected, 12/16 p/w LBP, BLE numbness and tingling The patient reports onset of symptoms originating in the lower abdomen, with involvement of the entire lower extremities, left side slightly more affected than right, but lacking specific nerve distribution. Reports tingling numbness in entire BLE that started this morning and progressively worsened throughout the day. She denies any recent trauma or falls, as well as fevers or chills, and notes improvement of her wound. Despite taking Motrin at home, she reports a significant increase in pain today. Denies urinary or bowel incontinence Review of Systems 10 point ROS is obtained and negative except the ones mentioned in the HPI Social History She reports that she has been smoking cigarettes. She started smoking about 32 years ago. She has a16.4 pack-year smoking history. She has never used smokeless tobacco. She reports that she does notcurrently use drugs. She reports that she does not drink alcohol. Medical History Past Medical History: Diagnosis Date Anxiety Arthritis Bipolar disorder (Multi) Chronic pain disorder Depression HCV (hepatitis C [...] Percutaneous Thoracic Spinal Cord Stimulator Trial TONSILLECTOMY Objective Vitals: Vitals: 12/18/232099 BP: 146/87 Pulse: 96 Resp: 16 Temp: SpO2: 97% Exam: Constitutional: No acute distress Resp: breathing comfortably Cardio: well perfused GI: nondistended MSK: full range of motion Neuro: Awake, A&Ox3 Cranial Nerves II-XII: PERRL, EOMI, Face symmetric, Facial SILT, Palate/Tongue midline and symmetric, shoulder shrugs symmetric, hearing intact to finger rubs bilaterally Motor: 5/5 in all extremities BLE tingling and numbness DTRS: 2+ Throughout, No Hoffmans or Clonus Psych: appropriate Skin: lumbar incision c/d/i Medications Current Outpatient Medications Medication Instructions acetaminophen (TYLENOL) 650 mg, oral, Every 6 hours PRN cyclobenzaprine (FLEXERIL) 10 mg, oral, Daily diphenhydrAMINE (SOMINEX) 25 mg, oral, Every 6 hours FLUoxetine (PROZAC) 60 mg, oral, Daily hydrOXYzine HCL (ATARAX) 25 mg, oral, 3 times daily PRN ibuprofen 800 mg, oral, Every 8 hours PRN methocarbamol (ROBAXIN) 500 mg, oral, 3 times daily naloxone (NARCAN) 4 mg, nasal, As needed, May repeat every 2-3 minutes if needed, alternating nostrils, until medical assistance becomes available. naproxen (EC NAPROSYN) 500 mg, oral, 2 times daily (morning and late afternoon), Do not crush, chew, or split. omeprazole (PRILOSEC) 40 mg, oral, Daily, Do not crush or chew. oxyCODONE-acetaminophen (Percocet) 5-325 mg tablet 1 tablet, oral, Every 6 hours PRN tiZANidine (ZANAFLEX) 4 mg, oral, Every 6 hours PRN Diagnostic Results: Lab Results Component Value Date WBC 9.5 12/18/2023 HGB 14.0 12/18/2023 HCT 42.2 12/18/2023 MCV 91 12/18/2023 PLT 365 12/18/2023 Lab Results Component Value Date CREATININE 0.76 12/18/2023 BUN 10 12/18/2023 NA 136 12/18/2023 K 4.0 12/18/2023 CL 101 12/18/2023 CO2 24 12/18/2023 Lab Results Component Value Date INR 0.9 12/15/2023 INR 1.1 11/13/2023 INR 1.0 10/13/2023 PROTIME 10.5 12/15/2023 PROTIME 12.3 11/13/2023 PROTIME 10.9 10/13/2023 Imaging Results: MR lumbar spine w and wo IV contrast Preliminary Result 1. Iavk-kz-ewycngqy multilevel degenerative changes of the cervical spine as described above. 2. No evidence of spinal canal or neural foraminal stenosis of the thoracic spine. 3. Redemonstration of spinal stimulator removal postsurgical changes in the subcutaneous tissue of the posterior lower back extending from the level of T11 to L3 with associated enhancement and multiple foci of blooming artifacts likely gas locules versus hemosiderin deposition. There is extension of the enhancement and edema to the skin surface at the level of L2-L3, similar to the prior exam likely representing postsurgical changes. Presence of a fistulous tract not entirely excluded. Interval decreased size of a small collection in the subcutaneous tissue. No new loculated fluid collections. 4. Multilevel degenerative changes of the lumbar spine with moderate spinal canal stenosis at the level of L4-L5. Additional details are provided above. I personally reviewed the images/study and I agree with the findings as stated by resident physician Dr. Rick Nevarez . This study was interpreted at [place], [place]. MACRO: None Dictation workstation: [id number] MR cervical spine w and wo IV contrast Preliminary Result 1. Niij-ka-tdbiobvs multilevel degenerative changes of the cervical spine as described above. 2. No evidence of spinal canal or neural foraminal stenosis of the thoracic spine. 3. Redemonstration of spinal stimulator removal postsurgical changes in the subcutaneous tissue of the posterior lower back extending from the level of T11 to L3 with associated enhancement and multiple foci of blooming artifacts likely gas locules versus hemosiderin deposition. There is extension of the enhancement and edema to the skin surface at the level of L2-L3, similar to the prior exam likely representing postsurgical changes. Presence of a fistulous tract not entirely excluded. Interval decreased size of a small collection in the subcutaneous tissue. No new loculated fluid collections. 4. Multilevel degenerative changes of the lumbar spine with moderate spinal canal stenosis at the level of L4-L5. Additional details are provided above. I personally reviewed the images/study and I agree with the findings as stated by resident physician Dr. Rick Nevarez . This study was interpreted at [place], [place]. MACRO: None Dictation workstation: [id number] MR thoracic spine w and wo IV contrast Assessment/Plan Assessment: Karina is a 48 y.o. female with h/o chronic bilateral low back pain, neuropathic BLE pain (R>L), LL radiculopathy, HCV, GERD, depression, bipolar disorder, 7/ s/p perc spinal cord stim placement, L buttock generator placement, p/w wound dehiscence, 10/12 s/p PICC, 10/13 s/p wound washout and removal of lead/generator, p/w pain around incision, 11/12 p/w wound dehiscence and pain, MRI LS 3.3 subcut aneous seroma, CT LS L1-4 fast stranding c/f cellulitis, 12/05 wound vac placed in ED 12/06 p/w woundvac disconnected and replaced, 12/09 p/w wound vac disconnected, 12/16 p/w LBP, BLE numbness and tingling Patient neurologically intact with acute BLE numbness for 1d (L>R). Imaging without any evidenceof cord compression. Plan: No acute neurosurgical intervention or additional neuroimaging needed at this time. Unless otherwise noted, no need for neurosurgical follow-up; please see Visit History. Thank you for allowing us toparticipate in the care of this patient. Will sign off at this time. Please page with any questionsor concerns. Claus Beck MD Note authored by resident on neurosurgery team, with all questions [place] [phone] Plan not finalized until note signed by attending [facility] Work Phone: [phone] Consult note* Claus Beck MD - 12/18/2023 10:52 PM EDTAssociated Order(s): IP CONSULT TO NEUROSURGERY Date of Service: 12/18/2023 Attending Provider: Lilia Talbert DO Reason for Consultation: Jerad Collins is being seen today for a consult requested by DO Clifford for post-op pain and symptoms. Subjective History of Present Illness: Karina is a 48 y.o. female with h/o chronic bilateral low back pain, neuropathic BLE pain (R>L), LL radiculopathy, HCV, GERD, depression, bipolar disorder, 09/22 s/p perc spinal cord stim placement, L buttock generator placement, p/w wound dehiscence, 10/12 s/p PICC, 10/13 s/p wound washout and removal of lead/generator, p/w pain around incision, 11/12 p/w wound dehiscence and pain, MRI LS 3.3 subcut aneous seroma, CT LS L1-4 fast stranding c/f cellulitis, 12/05 wound vac placed in ED 12/06 p/w woundvac disconnected and replaced, 12/09 p/w wound vac disconnected, 12/16 p/w LBP, BLE numbness and tingling The patient reports onset of symptoms originating in the lower abdomen, with involvement of the entire lower extremities, left side slightly more affected than right, but lacking specific nerve distribution. Reports tingling numbness in entire BLE that started this morning and progressively worsened throughout the day. She denies any recent trauma or falls, as well as fevers or chills, and notes improvement of her wound. Despite taking Motrin at home, she reports a significant increase in pain today. Denies urinary or bowel incontinence Review of Systems 10 point ROS is obtained and negative except the ones mentioned in the HPI Social History She reports that she has been smoking cigarettes. She started smoking about 32 years ago. She has a16.4 pack-year smoking history. She has never used smokeless tobacco. She reports that she does notcurrently use drugs. She reports that she does not drink alcohol. Medical History Past Medical History: Diagnosis Date Anxiety Arthritis Bipolar disorder (Multi) Chronic pain disorder Depression HCV (hepatitis C [...] Percutaneous Thoracic Spinal Cord Stimulator Trial TONSILLECTOMY Objective Vitals: Vitals: 12/18/232099 BP: 146/87 Pulse: 96 Resp: 16 Temp: SpO2: 97% Exam: Constitutional: No acute distress Resp: breathing comfortably Cardio: well perfused GI: nondistended MSK: full range of motion Neuro: Awake, A&Ox3 Cranial Nerves II-XII: PERRL, EOMI, Face symmetric, Facial SILT, Palate/Tongue midline and symmetric, shoulder shrugs symmetric, hearing intact to finger rubs bilaterally Motor: 5/5 in all extremities BLE tingling and numbness DTRS: 2+ Throughout, No Hoffmans or Clonus Psych: appropriate Skin: lumbar incision c/d/i Medications Current Outpatient Medications Medication Instructions acetaminophen (TYLENOL) 650 mg, oral, Every 6 hours PRN cyclobenzaprine (FLEXERIL) 10 mg, oral, Daily diphenhydrAMINE (SOMINEX) 25 mg, oral, Every 6 hours FLUoxetine (PROZAC) 60 mg, oral, Daily hydrOXYzine HCL (ATARAX) 25 mg, oral, 3 times daily PRN ibuprofen 800 mg, oral, Every 8 hours PRN methocarbamol (ROBAXIN) 500 mg, oral, 3 times daily naloxone (NARCAN) 4 mg, nasal, As needed, May repeat every 2-3 minutes if needed, alternating nostrils, until medical assistance becomes available. naproxen (EC NAPROSYN) 500 mg, oral, 2 times daily (morning and late afternoon), Do not crush, chew, or split. omeprazole (PRILOSEC) 40 mg, oral, Daily, Do not crush or chew. oxyCODONE-acetaminophen (Percocet) 5-325 mg tablet 1 tablet, oral, Every 6 hours PRN tiZANidine (ZANAFLEX) 4 mg, oral, Every 6 hours PRN Diagnostic Results: Lab Results Component Value Date WBC 9.5 12/18/2023 HGB 14.0 12/18/2023 HCT 42.2 12/18/2023 MCV 91 12/18/2023 PLT 365 12/18/2023 Lab Results Component Value Date CREATININE 0.76 12/18/2023 BUN 10 12/18/2023 NA 136 12/18/2023 K 4.0 12/18/2023 CL 101 12/18/2023 CO2 24 12/18/2023 Lab Results Component Value Date INR 0.9 12/15/2023 INR 1.1 11/13/2023 INR 1.0 10/13/2023 PROTIME 10.5 12/15/2023 PROTIME 12.3 11/13/2023 PROTIME 10.9 10/13/2023 Imaging Results: MR lumbar spine w and wo IV contrast Preliminary Result 1. Skfc-bm-cbvowpxx multilevel degenerative changes of the cervical spine as described above. 2. No evidence of spinal canal or neural foraminal stenosis of the thoracic spine. 3. Redemonstration of spinal stimulator removal postsurgical changes in the subcutaneous tissue of the posterior lower back extending from the level of T11 to L3 with associated enhancement and multiple foci of blooming artifacts likely gas locules versus hemosiderin deposition. There is extension of the enhancement and edema to the skin surface at the level of L2-L3, similar to the prior exam likely representing postsurgical changes. Presence of a fistulous tract not entirely excluded. Interval decreased size of a small collection in the subcutaneous tissue. No new loculated fluid collections. 4. Multilevel degenerative changes of the lumbar spine with moderate spinal canal stenosis at the level of L4-L5. Additional details are provided above. I personally reviewed the images/study and I agree with the findings as stated by resident physician Dr. Rick Nevarez . This study was interpreted at [place], [place]. MACRO: None Dictation workstation: [id number] MR cervical spine w and wo IV contrast Preliminary Result 1. Evny-da-nssxdtqs multilevel degenerative changes of the cervical spine as described above. 2. No evidence of spinal canal or neural foraminal stenosis of the thoracic spine. 3. Redemonstration of spinal stimulator removal postsurgical changes in the subcutaneous tissue of the posterior lower back extending from the level of T11 to L3 with associated enhancement and multiple foci of blooming artifacts likely gas locules versus hemosiderin deposition. There is extension of the enhancement and edema to the skin surface at the level of L2-L3, similar to the prior exam likely representing postsurgical changes. Presence of a fistulous tract not entirely excluded. Interval decreased size of a small collection in the subcutaneous tissue. No new loculated fluid collections. 4. Multilevel degenerative changes of the lumbar spine with moderate spinal canal stenosis at the level of L4-L5. Additional details are provided above. I personally reviewed the images/study and I agree with the findings as stated by resident physician Dr. Rick Nevarez . This study was interpreted at [place], [place]. MACRO: None Dictation workstation: [id number] MR thoracic spine w and wo IV contrast Assessment/Plan Assessment: Karina is a 48 y.o. female with h/o chronic bilateral low back pain, neuropathic BLE pain (R>L), LL radiculopathy, HCV, GERD, depression, bipolar disorder, 09/22 s/p perc spinal cord stim placement, L buttock generator placement, p/w wound dehiscence, 10/12 s/p PICC, 10/13 s/p wound washout and removal of lead/generator, p/w pain around incision, 11/12 p/w wound dehiscence and pain, MRI LS 3.3 subcut aneous seroma, CT LS L1-4 fast stranding c/f cellulitis, 12/05 wound vac placed in ED 12/06 p/w woundvac disconnected and replaced, 12/09 p/w wound vac disconnected, 12/16 p/w LBP, BLE numbness and tingling Patient neurologically intact with acute BLE numbness for 1d (L>R). Imaging without any evidenceof cord compression. Plan: No acute neurosurgical intervention or additional neuroimaging needed at this time. Unless otherwise noted, no need for neurosurgical follow-up; please see Visit History. Thank you for allowing us toparticipate in the care of this patient. Will sign off at this time. Please page with any questionsor concerns. Claus Beck MD Note authored by resident on neurosurgery team, with all questions [place] [phone] Plan not finalized until note signed by attending [facility] Work Phone: [phone] Emergency department Note* Cydney Rodríguez RN - 12/18/2023 12:58 PM EDT Had back surgery in September. Today had 2 episodes of urinary incontinence. Endorsing saddle anesthesiaand numbness and tingling in BLE. Pt is able to ambulate with a steady gait [facility] Work Phone: [phone]) [phone] Emergency department Triage note* Cydney Rodríguez RN - 12/18/2023 12:58 PM EDT Had back surgery in September. Today had 2 episodes of urinary incontinence. Endorsing saddle anesthesiaand numbness and tingling in BLE. Pt is able to ambulate with a steady gait [facility]09-22-2024 Emergency department Note* Aliyah Shannon RN - 12/15/2023 5:19 PM EDT Pt with history of L4-L5 disc protrusion s/p stimulator placement September 2023, chronic low back pain,hepatitis C, depression, bipolar disorder c/o bilateral flank pain and tenderness. No urinary symptoms, no fever, chills, HORNER, N, V. Pain started yesterday and the pt describes it as throbbing, 10/10 in severity. Wound vac in place, wound not erythematous, no drainage. documented in this [facility] Work Phone: 1(522) 296-712109-22-2024 Emergency department Triage note* Aliyah Shannon RN - 12/15/2023 5:19 PM EDT Pt with history of L4-L5 disc protrusion s/p stimulator placement September 2023, chronic low back pain,hepatitis C, depression, bipolar disorder c/o bilateral flank pain and tenderness. No urinary symptoms, no fever, chills, HORNER, N, V. Pain started yesterday and the pt describes it as throbbing, 10/10 in severity. Wound vac in place, wound not erythematous, no drainage. [facility] Work Phone: [phone]) 113-827909-22-2024 History of Present illness Narrative* Dalton Grey MD - 12/15/2023 5:19 PM EDT Emergency Medicine Transition of Care Note. I received Jerad Tracy in signout from Dr. Geronimo. Please see the previous ED provider note for all HPI, PE and MDM up to the time of signout. This is in addition to the primary record. In brief Jerad Tracy is an 48 y.o. female presenting for Chief Complaint Patient presents with Flank Pain Bilateral, tender At the time of signout we were awaiting: CT scan ED Course as of 12/15/232202 Sun Dec 15, 2023 190 Labs are unremarkable. [LM] ED Course User Index [LM] Lilia Geronimo MD Diagnoses as of 12/15/232202 Post-operative pain Visit for wound check Medical Decision Making Wound VAC overlying a soft tissue ulceration [...] intraforaminal right L5 nerve root at L5-S1. Spoke to neurosurgery who was unimpressed with the patient CT results and exam as described. This is to keep the Prevena wound VAC on for 1 week until he have a follow-up appointment. Final diagnoses: [G89.18] Post-operative pain [Z51.89] Visit for wound check Procedure Procedures Dalton Grey MD documented in this [facility] Work Phone: [phone]) 463-941409-20-2024 Emergency department Note* Francisco J Daley PA-C - 12/13/2023 8:01 PM EDT Images from the original note were not included. HPI Chief Complaint Patient presents with Itching I have itching, burning, throbbing at the wound vac site, like maybe I'm allergic to the tape or something, I had the dressing changed at home today and she said it looked like I had tiny blisters 48-year-old female presents ER with complaint of itchiness to the skin underneath her dressing fromher wound VAC. The patient reports that the home health nurse came in today and noticed that the skin looked irritated underneath the adhesive for her wound VAC dressing. Patient states that she recently had a stimulator removed after got infected. The patient has a history of chronic back pain as well as neuropathic pain. She denies any fevers or chills, denies any bladder or bowel dysfunction or saddle paresthesias. Did review the patient's EMR which shows multiple ER visits for wound check and chronic pain. Her last ER visit was on 10 December. Patient has a history of L4-L5 disc protrusion status post stimulator placement September 2023. He is scheduled to see her neurosurgeon next week. History provided by: Patient and medical records Patient History Past Medical History: Diagnosis Date Anxiety Arthritis Bipolar disorder (Multi) Chronic pain disorder Depression HCV (hepatitis C [...] packs/day: 0.50 Average packs/day: 0.5 packs/day for 32.7 years (16.4 ttl pk-yrs) Types: Cigarettes Start date: 1991 Smokeless tobacco: Never Vaping Use Vaping status: Never Used Substance Use Topics Alcohol use: Never Drug use: Not Currently Comment: last use 2016- heroin Physical Exam ED Triage Vitals [12/13/232011] Temperature Heart Rate Respirations BP 36.1 C (97 F) 86 18 111/76 Pulse Ox Temp Source Heart Rate Source Patient Position 97 % Temporal Monitor Sitting BP Location FiO2 (%) Right arm -- Physical Exam Vitals and nursing note reviewed. Exam conducted with a coding quality coordinator present. Constitutional: General: She is not in acute distress. Appearance: Normal appearance. She is not ill-appearing, toxic-appearing or diaphoretic. Abdominal: General: Bowel sounds are normal. Palpations: Abdomen is soft. Tenderness: There is no abdominal tenderness. Musculoskeletal: Cervical back: Normal. Thoracic back: Normal. Lumbar back: Decreased range of motion. Back: Comments: Back exam shows a wound VAC in place, outside adhesive tape is 1 small area of skin irritation, no blisters. Skin: General: Skin is warm and dry. Findings: Rash present. No erythema. Comments: Wound VAC site was examined, I see a small area of erythema just outside the adhesive tape to the skin. No sign of cellulitis no fluctuance, no sign of any blisters. Neurological: General: No focal deficit present. Mental Status: She is alert and oriented to person, place, and time. Mental status is at baseline. Psychiatric: Mood and Affect: Mood normal. Behavior: Behavior normal. Thought Content: Thought content normal. Judgment: Judgment normal. ED Course & MDM Diagnoses as of 12/13/232123 Skin irritation Acute left-sided low back pain without sciatica Acute post-operative pain No data recorded Gadiel Coma Scale Score: 15 (12/13/232010 : Elke London RN) Medical Decision Making Temp 36 1 heart rate 86 respirations 18 blood pressure 111/76 pulse ox is 97% room air Patient was given Benadryl 25 mg p.o. and 1 oxycodone 5-325 mg p.o. She was discharged home with prescription for Benadryl, 5 tablets of oxycodone and Robaxin. Recommend follow back up with her surgeon on Saturday. I do not see any evidence to suggest infection. She was encouraged to return with any concerns or worsening of symptoms all questions answered prior to discharge Procedure Procedures Francisco J Daley PA-C 12/13/232125 documented in this [facility] Work Phone: 1(820) 804-779209-20-2024 Physician Emergency department Note* Francisco J Daley PA-C - 12/13/2023 8:01 PM EDT Images from the original note were not included. HPI Chief Complaint Patient presents with Itching I have itching, burning, throbbing at the wound vac site, like maybe I'm allergic to the tape or something, I had the dressing changed at home today and she said it looked like I had tiny blisters 48-year-old female presents ER with complaint of itchiness to the skin underneath her dressing fromher wound VAC. The patient reports that the home health nurse came in today and noticed that the skin looked irritated underneath the adhesive for her wound VAC dressing. Patient states that she recently had a stimulator removed after got infected. The patient has a history of chronic back pain as well as neuropathic pain. She denies any fevers or chills, denies any bladder or bowel dysfunction or saddle paresthesias. Did review the patient's EMR which shows multiple ER visits for wound check and chronic pain. Her last ER visit was on 10 December. Patient has a history of L4-L5 disc protrusion status post stimulator placement September 2023. He is scheduled to see her neurosurgeon next week. History provided by: Patient and medical records Patient History Past Medical History: Diagnosis Date Anxiety Arthritis Bipolar disorder (Multi) Chronic pain disorder Depression HCV (hepatitis C [...] packs/day: 0.50 Average packs/day: 0.5 packs/day for 32.7 years (16.4 ttl pk-yrs) Types: Cigarettes Start date: 1991 Smokeless tobacco: Never Vaping Use Vaping status: Never Used Substance Use Topics Alcohol use: Never Drug use: Not Currently Comment: last use 2016- heroin Physical Exam ED Triage Vitals [12/13/232011] Temperature Heart Rate Respirations BP 36.1 C (97 F) 86 18 111/76 Pulse Ox Temp Source Heart Rate Source Patient Position 97 % Temporal Monitor Sitting BP Location FiO2 (%) Right arm -- Physical Exam Vitals and nursing note reviewed. Exam conducted with a coding quality coordinator present. Constitutional: General: She is not in acute distress. Appearance: Normal appearance. She is not ill-appearing, toxic-appearing or diaphoretic. Abdominal: General: Bowel sounds are normal. Palpations: Abdomen is soft. Tenderness: There is no abdominal tenderness. Musculoskeletal: Cervical back: Normal. Thoracic back: Normal. Lumbar back: Decreased range of motion. Back: Comments: Back exam shows a wound VAC in place, outside adhesive tape is 1 small area of skin irritation, no blisters. Skin: General: Skin is warm and dry. Findings: Rash present. No erythema. Comments: Wound VAC site was examined, I see a small area of erythema just outside the adhesive tape to the skin. No sign of cellulitis no fluctuance, no sign of any blisters. Neurological: General: No focal deficit present. Mental Status: She is alert and oriented to person, place, and time. Mental status is at baseline. Psychiatric: Mood and Affect: Mood normal. Behavior: Behavior normal. Thought Content: Thought content normal. Judgment: Judgment normal. ED Course & MDM Diagnoses as of 12/13/232123 Skin irritation Acute left-sided low back pain without sciatica Acute post-operative pain No data recorded Gadiel Coma Scale Score: 15 (12/13/232010 : Elke London RN) Medical Decision Making Temp 36 1 heart rate 86 respirations 18 blood pressure 111/76 pulse ox is 97% room air Patient was given Benadryl 25 mg p.o. and 1 oxycodone 5-325 mg p.o. She was discharged home with prescription for Benadryl, 5 tablets of oxycodone and Robaxin. Recommend follow back up with her surgeon on Saturday. I do not see any evidence to suggest infection. She was encouraged to return with any concerns or worsening of symptoms all questions answered prior to discharge Procedure Procedures Francisco J Daley PA-C 12/13/232125 T [facility] Work Phone: 1(356) 397-632809-20-2024 Hospital Discharge instructions Patient Education 12/13/2023 14:15:46 Allergies, Adult, [id number] Allergies, Adult An allergy is when your [...] instructions at home: Medicines Take or apply [id number] and prescription medicines only as told by [...] provider. Document Revised: 11/21/2022 Document Reviewed: 11/21/2022 [employer] Patient Education 2023 [employer]. Follow Up Care 12/13/2023 13:35:05 With:Mayra Rosas [facility] [address] [facility] [address] ([address]) When:12/16/2023 14:02:00 [facility] [id number] NoteED Note-Nursing [facility] NoteED Patient Education Note Immunology Allergies, [...] at home: Medicines ? Take or apply [id number] and prescription medicines only as told by [...] provider. Document Revised: 11/21/2022 Document Reviewed: 11/21/2022 [employer] Patient Education ? 2023 [employer].[facility] 12-13-2023 History of Present illness Narrative* Elke Adams MD - 12/13/2023 9:30 AM EDT [facility] Neurosurgery Diagnosis Jerad Collins was seen today for pov. Diagnoses and all orders for this visit: Neuropathic pain Dehiscence of wound of skin, subsequent encounter Patient Discussion/Summary 1) Today we changed your dressing with the wound care nurse. The incision looked remarkably improved overall. 2) We also discussed that your most recent imaging showed notable improvement in superficial fluid collection, though some swelling is still present. 3) As such, I would like you to see our wound care nurse again in 1 week and follow-up with me in 2weeks. We should also continue to monitor your tenderness to see if this improves and, if not, I would like another MRI to reassess. Provider Impressions 48 y.o. female with chronic [...] erythema of her lumbar incision, concerning for fluid collection and poss infx, and ultimately wished to have the system removed with washout rather than treat with abx and try to salvage device; surgery was done on 10/13;intraop, it was unclear if there was a hematoma causing pressure under the incision or infx (wound cultures negative), and patient was discharged on a course of oral abx. Since then, pt had several bouts to ER for concern for wound dehiscence and/or increased tenderness; repeat MRIs show superficial fluid collection improving; pravena wound vac was recently placed and incision nearly healed. Wound vac changed in visit today with wound care nurse, and we will reassess next week with wound care nurse and in 2 weeks with me. History of Present Illness Chief Complaint: Chief Complaint Patient presents with POV HPI: Jerad Tracy is a 48 y.o. [...] system with the generator on the opposite side, and I had ordered a thoracic MRI for presurgical planning. However, patient presented back to the ED on 10/29 for severe incisional pain; lumbar MRI showed underlying fluid collection; however, there was low concern for infx until she again presented back on 11/07 with purulent discharge from her lumbar incision. She was admitted for wound care and given oral abx through 11/25, per ID recommendations. During her most recent OV with me on 12/05, patient reported 1-2 days of again increased pain and pressure at her lumbar incision, withslight blood-tinged drainage. Upon exam, her wound continued to appear healthy with granulation tissue. As such, patient was advised to present to the ER for repeat imaging and wound care. While in the ER, lumbar MRI showed improving subcutaneous seroma, though, there was edema at L2- L3 c/f cellulitis vs postsurgical change with granulation tissue; Prevena dressing was applied and patient was recommended close follow up in 1 week. In the interim, patient has had several return trips to the ER for accidental disconnection and replacement of her wound vac. Patient presents today for follow up wound check. ROS: As noted in HPI. Previous History Past Medical History: Diagnosis Date Anxiety Arthritis Bipolar disorder (Multi) Chronic pain disorder Depression HCV (hepatitis C [...] packs/day: 0.50 Average packs/day: 0.5 packs/day for 32.7 years (16.4 ttl pk-yrs) Types: Cigarettes Start [...] in the past and tolerated. Gabapentin Headache Nabumetone Nausea/vomiting and Rash Current Outpatient Medications Medication Instructions acetaminophen (TYLENOL) 650 mg, oral, Every 6 hours PRN cyclobenzaprine (FLEXERIL) 10 mg, oral, Daily FLUoxetine (PROZAC) 60 mg, oral, Daily hydrOXYzine HCL (ATARAX) 25 mg, oral, 3 times daily PRN ibuprofen 800 mg, oral, Every 8 hours PRN naloxone (NARCAN) 4 mg, nasal, As needed, May repeat every 2-3 minutes if needed, alternating nostrils, until medical assistance becomes available. naproxen (EC NAPROSYN) 500 mg, oral, 2 times daily (morning and late afternoon), Do not crush, chew, or split. omeprazole (PRILOSEC) 40 mg, oral, Daily, Do not crush or chew. tiZANidine (ZANAFLEX) 4 mg, oral, Every 6 hours PRN Vitals Pulse 96 Temp 36.6 C (97.9 F) Resp 18 Ht 1.6 m (5' 3 ) Wt 113 kg (250 lb) BMI 44.29 kg/m Physical Exam Incision nearly healed, though still slight superficial dehiscence on rostral portion of wound; of note, notable irritation aournd incision from wound vac adhesive. Results documented in this [facility] Work Phone: [phone]) 800-215709-18-2024 Emergency department Note* Alondra Shipley, ELIZABETH-WAIVER ANALYST - 12/11/2023 11:13 AM EDT HPI Chief Complaint Patient presents with Wound Check History provided by: Patient club former used: No 48 y.o. female who is well-known to our emergency department with frequent visits for the same complaints with history of L4-L5 disc protrusion s/p stimulator placement September 2023, chronic low back pain, hepatitis C, depression, bipolar disorder presenting to the ED today for wound vac malfunction. Pt states her device started making a loud noise last night and is no longer suctioning properly. She does have a follow-up appointment on 12/13/2023 with neurosurgery for further evaluation and management. She is additionally endorsing her chronic lower back pain and was requesting something for pain for her 2-hour drive home, has been is driving. She denies any trauma, fall, injury, anticoagulation use, recent travel large crowds or known sick contacts. Denies any numbness, tingling, weakness, inability ambulate, change in her lower back pain, fevers, chills or any additional symptoms or complaints this time. ROS is otherwise negative unless stated above. 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 GEN: NAD, nontoxic, well-appearing, ambulates without difficulty EYES: EOMs grossly intact, anicteric sclera, no nystagmus noted, clear and equal bilaterally, no foreign body noted HEENT: Airway patent CARD: RRR, nontender chest, no crepitus deformities, no JVD, no murmurs rubs or gallops ; No edema noted. Positive pulses bilaterally throughout. Capillary refill less than 3 seconds. No abnormal redness, warmth, tenderness or swelling noted to bilateral lower extremities. PULMONARY: Clear all lung gonzalez. Moving air well, Nonlabored, no accessory muscle use, able to speak complete sentences ABDOMEN: Abdomen soft, non-distended, no rebound, no guarding. Bowel sounds normal in all 4 quadrants. No tenderness to palpation. No CVA tenderness. No masses or organomegaly noted. : deferred MUSK: Spine appears normal, range of motion is not limited, tenderness to palpation of entire lumbar spinal region. Strength 5 out of 5 equal bilaterally throughout. No step-offs, deformities or additional signs of trauma noted. No spinal/midline tenderness to palpation SKIN: Skin normal color for race, warm, dry and intact. No evidence of trauma. No rash noted. WoundVAC in place without signs or symptoms of infection or complication. NEURO: Alert and oriented x 3, speech is clear, no obvious deficits noted. No facial droop noted. PSYCH: Alert and oriented to person, place, time/situation. LYMPH: No adenopathy or splenomegaly. No cervical, supraclavicular or inguinal lymphadenopathy. ED Course & MDM Diagnoses as of 12/11/23 1409 Encounter for management of wound VAC Chronic low back pain without sciatica, unspecified back pain laterality No data recorded Gadiel Coma Scale Score: 15 (12/11/23 1121 : Carol Hewitt RN) Medical Decision Making Upon assessment patient is a nontoxic-appearing female in no apparent distress. She is ambulate independently without difficulty or dyspnea. She is neurologically intact, no red flag signs for back pain. Pain is consistent with her chronic lower back pain and educated patient that she can receive adose of subcutaneous Dilaudid as her is driving her home but I will not provide her a new prescription for narcotics at this time. She verbalized understanding this information and states that she is following up with the pain clinic on 01/06/2024, educated her on the portance of keeping this follow-up for her chronic pain. She endorsed improvement of her pain upon reevaluation. Assessment is otherwise benign. Wound VAC appears to not be working initially, my student fix this and it wasworking properly and she states that she feels better and want to be discharged home and has no additional concerns or complaints. She has a follow-up appointment in 2 days on 12/13/2023 for further management and evaluation of this wound VAC and educate importance of keeping this. There is no indication for workup at this time as these are chronic symptoms and now her wound VAC is working and shehas no evidence of infection or additional emergent process. She is hemodynamically stable, ambulating and tolerating p.o. without difficulty. Findings and plan were discussed with patient and she isagreeable with plan and acknowledged understanding. additionally I reviewed her multiple visits forthe same symptoms and complaints. EKG Interpretation: N/A Differential Diagnoses Considered: chronic back pain, anxiety, encounter for wound vac evaluation Chronic Medical Conditions Significantly Affecting Care:chronic back pain External Records Reviewed: I reviewed recent and relevant outside records including: PCP notes, prior discharge summary, previous radiologic studies, HIE, OARRS Independent Interpretation of Studies: I independently interpreted: none Escalation of Care: Appropriate for outpatient management with primary care, neurosurgery and pain clinic follow-ups asscheduled. Return precautions discussed and patient verbalized understanding. All questions and concerns were addressed. Social Determinants of Health Significantly Affecting Care: none Prescription Drug Consideration: None. Educated to continue her already prescribed medication at home for symptomatic management. Had a shared discussion with patient that I will not prescribe her any additional narcotics at this time and she verbalized understanding. educated that she can additiona lly use warm compresses at home for additional management. Diagnostic testing considered: None indicated this time as this is patient's chronic pain and she is no evidence of wound VAC dysfunction or infection Discussion of Management with Other Providers: I discussed the patient/results with: none *Please note that portions of this note may have been completed with a voice recognition program. Efforts were made to edit the dictations but occasionally, words are mis-transcribed. Procedure Procedures ROX [place] 12/11/23 1427 * Carol Hewitt RN - 12/11/2023 11:13 AM EDT Pt presents to ED with wound vac complaints. Pt states she has appointment on Saturday for wound evaluation. Pt states she had wound vac placed 12/06, states there is no drainage and is giving her pain.Pt denies fevers/chills at home. Pt states pain in back 8/10. documented in this [facility] Work Phone: [phone]) 767-112009-18-2024 Emergency department Triage note* Carol Hewitt RN - 12/11/2023 11:13 AM EDT Pt presents to ED with wound vac complaints. Pt states she has appointment on Saturday for wound evaluation. Pt states she had wound vac placed 12/06, states there is no drainage and is giving her pain.Pt denies fevers/chills at home. Pt states pain in back 8/10. [facility] Work Phone: 1([phone]) 377-377809-18-2024 Physician Emergency department Note* ROX [place] - 12/11/2023 11:13 AM EDT HPI Chief Complaint Patient presents with Wound Check History provided by: Patient club former used: No 48 y.o. female who is well-known to our emergency department with frequent visits for the same complaints with history of L4-L5 disc protrusion s/p stimulator placement September 2023, chronic low back pain, hepatitis C, depression, bipolar disorder presenting to the ED today for wound vac malfunction. Pt states her device started making a loud noise last night and is no longer suctioning properly. She does have a follow-up appointment on 12/13/2023 with neurosurgery for further evaluation and management. She is additionally endorsing her chronic lower back pain and was requesting something for pain for her 2-hour drive home, has been is driving. She denies any trauma, fall, injury, anticoagulation use, recent travel large crowds or known sick contacts. Denies any numbness, tingling, weakness, inability ambulate, change in her lower back pain, fevers, chills or any additional symptoms or complaints this time. ROS is otherwise negative unless stated above. 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 GEN: NAD, nontoxic, well-appearing, ambulates without difficulty EYES: EOMs grossly intact, anicteric sclera, no nystagmus noted, clear and equal bilaterally, no foreign body noted HEENT: Airway patent CARD: RRR, nontender chest, no crepitus deformities, no JVD, no murmurs rubs or gallops ; No edema noted. Positive pulses bilaterally throughout. Capillary refill less than 3 seconds. No abnormal redness, warmth, tenderness or swelling noted to bilateral lower extremities. PULMONARY: Clear all lung gonzalez. Moving air well, Nonlabored, no accessory muscle use, able to speak complete sentences ABDOMEN: Abdomen soft, non-distended, no rebound, no guarding. Bowel sounds normal in all 4 quadrants. No tenderness to palpation. No CVA tenderness. No masses or organomegaly noted. : deferred MUSK: Spine appears normal, range of motion is not limited, tenderness to palpation of entire lumbar spinal region. Strength 5 out of 5 equal bilaterally throughout. No step-offs, deformities or additional signs of trauma noted. No spinal/midline tenderness to palpation SKIN: Skin normal color for race, warm, dry and intact. No evidence of trauma. No rash noted. WoundVAC in place without signs or symptoms of infection or complication. NEURO: Alert and oriented x 3, speech is clear, no obvious deficits noted. No facial droop noted. PSYCH: Alert and oriented to person, place, time/situation. LYMPH: No adenopathy or splenomegaly. No cervical, supraclavicular or inguinal lymphadenopathy. ED Course & MDM Diagnoses as of 12/11/23 1409 Encounter for management of wound VAC Chronic low back pain without sciatica, unspecified back pain laterality No data recorded Gadiel Coma Scale Score: 15 (12/11/23 1121 : Carol Hewitt RN) Medical Decision Making Upon assessment patient is a nontoxic-appearing female in no apparent distress. She is ambulate independently without difficulty or dyspnea. She is neurologically intact, no red flag signs for back pain. Pain is consistent with her chronic lower back pain and educated patient that she can receive adose of subcutaneous Dilaudid as her is driving her home but I will not provide her a new prescription for narcotics at this time. She verbalized understanding this information and states that she is following up with the pain clinic on 01/06/2024, educated her on the portance of keeping this follow-up for her chronic pain. She endorsed improvement of her pain upon reevaluation. Assessment is otherwise benign. Wound VAC appears to not be working initially, my student fix this and it wasworking properly and she states that she feels better and want to be discharged home and has no additional concerns or complaints. She has a follow-up appointment in 2 days on 12/13/2023 for further management and evaluation of this wound VAC and educate importance of keeping this. There is no indication for workup at this time as these are chronic symptoms and now her wound VAC is working and shehas no evidence of infection or additional emergent process. She is hemodynamically stable, ambulating and tolerating p.o. without difficulty. Findings and plan were discussed with patient and she isagreeable with plan and acknowledged understanding. additionally I reviewed her multiple visits forthe same symptoms and complaints. EKG Interpretation: N/A Differential Diagnoses Considered: chronic back pain, anxiety, encounter for wound vac evaluation Chronic Medical Conditions Significantly Affecting Care:chronic back pain External Records Reviewed: I reviewed recent and relevant outside records including: PCP notes, prior discharge summary, previous radiologic studies, HIE, OARRS Independent Interpretation of Studies: I independently interpreted: none Escalation of Care: Appropriate for outpatient management with primary care, neurosurgery and pain clinic follow-ups asscheduled. Return precautions discussed and patient verbalized understanding. All questions and concerns were addressed. Social Determinants of Health Significantly Affecting Care: none Prescription Drug Consideration: None. Educated to continue her already prescribed medication at home for symptomatic management. Had a shared discussion with patient that I will not prescribe her any additional narcotics at this time and she verbalized understanding. educated that she can additiona lly use warm compresses at home for additional management. Diagnostic testing considered: None indicated this time as this is patient's chronic pain and she is no evidence of wound VAC dysfunction or infection Discussion of Management with Other Providers: I discussed the patient/results with: none *Please note that portions of this note may have been completed with a voice recognition program. Efforts were made to edit the dictations but occasionally, words are mis-transcribed. Procedure Procedures [facility] [place] 12/11/23 1427 [facility] Work Phone: [phone]) 394-214809-17-2024 Hospital Discharge instructions* Discharge Instructions* Roberto Aparicio MD - 12/10/2023 4:42 AM EDT Please follow-up outpatient with neurosurgery, appointment was scheduled in 3 days per their team. Return if you have: Temperature greater than 100.4 Signs of infection: pus draining warmth redness Persistent nausea and vomiting Persistent dizziness or light-headedness New numbness, tingling, sensory changes, difficulty walking Chest pain worsening Any other questions or concerns you may have after discharge In an emergency, call 911 or go to an Emergency Department at a nearby hospital documented in this [facility] Work Phone: [phone] 324-964109-16-2024 Emergency department Note* Roberto Aparicio MD - 12/09/2023 6:32 PM EDT Images from the original note were not included. Emergency Department Provider Note History of Present Illness History provided by: Patient Limitations to History: None External Records Reviewed with Brief Summary: Discharge Summary from 12/08 which showed lightheadedness, right arm pain with negative x-rays HPI: Jerad Tracy is a 48 y.o. female with history of L4-L5 disc protrusion s/p stimulator placement September 2023, chronic low back pain, hepatitis C, depression, bipolar disorder presenting to the ED today for wound vac replacement. Patient had a stimulator removed as well in September 2023 because he developed a hematoma. Was seen by neurosurgery on 12/05 for concern for hematoma, wound VAC was placed by neurosurgery. Patient reports that she felt lightheaded, passed out. She endorses head trauma, loss of consciousness, denies blood thinners. She reports that she also fell on her right hand, had x-rays done which were negative. She denies any current headache, lightheadedness, dizziness, vertigo, nausea, vomiting, fever. She also endorses chest tightness, no radiation of the chest pain or pleuritic chest pain.She endorses chronic pain to her lower back. Physical Exam Triage vitals: T 36.5 C (97.7 F) HR 77 BP 135/83 RR 20 O2 97 % None (Room air) General: Awake, alert, in no acute distress Eyes: Gaze conjugate. No scleral icterus or injection HENT: Normo-cephalic, atraumatic. No stridor CV: Regular rate, regular rhythm. Radial pulses 2+ bilaterally Resp: Breathing non-labored, speaking in full sentences. Clear to auscultation bilaterally GI: Soft, non-distended, non-tender. No rebound or guarding. MSK/Extremities: No gross bony deformities. Moving all extremities Skin: Warm. Appropriate color, incision to L-spine clean, dry, intact, nonpurulent tender to palpation Neurologic: Patient is awake and alert. Speech is clear. Face is symmetric without facial droop andfacial sensation to light touch equal bilaterally. Uvula midline. Tongue protrusion midline. Hearing intact bilaterally. Full and equal shoulder shrug and head turn against resistance. 5/5 motor strength of UEs and LEs. Sensation to light touch intact in all four extremities. Finger to nose and heel to gil intact. No pronator drift. Psych: Appropriate mood and affect Medical Decision Making & ED Course Medical Decision Makin y.o. female with history of L4-L5 disc protrusion s/p stimulator placement September 2023, chronic low back pain, hepatitis C, depression, bipolar disorder presenting to the ED today for wound vac replacement. Currently afebrile, neurovascularly intact. Exam shows incision to L-spine clean, dry, intact, nonpurulent tender to palpation, concern for any wound infection at this time, cellulitis, abscess. Neuroexam currently unremarkable, no headache, lightheadedness or dizziness. X-rays were negative at outside hospital. Patient reports chronic pain, had Oxy 5 at noon which didnot help her symptoms. Patient given meds for symptomatic treatment. Given patient had head trauma and loss of consciousness, CT head ordered to rule out any SAH, ICH. UA ordered to rule out any UTI. ACS workup pursued given lightheadedness and chest tightness. Neurosurgery was consulted given previous placement of wound VAC by their team. CT head negative for SAH, ICH. Patient was discharged in stable condition with neurosurgery follow-up in 3 days. Patient given return precautions. ---- Differential diagnoses considered include but are not limited to: as noted in MDM Social Determinants of Health which Significantly Impact Care: None identified EKG Independent Interpretation: EKG interpreted by myself. Please see ED Course for full interpretation. Independent Result Review and Interpretation: Relevant laboratory and radiographic results were reviewed and independently interpreted by myself. As necessary, they are commented on in the ED Course. Chronic conditions affecting the patient's care: As documented above in MDM The patient was discussed with the following consultants/services: Neurosurgery Care Considerations: As documented above in [facility] ED Course: ED Course as of 12/10/23442Dec 10, 202352 GLUCOSE(!): 103 [AT] 0054 SODIUM: 140 [AT] 0054 POTASSIUM: 3.5 [AT] 0054 Blood Urea Nitrogen: 9 [AT] 0054 Creatinine: 0.82 [AT] 0054 WBC: 6.5 [AT] 0054 HEMOGLOBIN: 12.5 [AT] 0054 Platelets: 295 [AT] 0055 X-ray today at OSH right shoulder elbow hand performed showed remote healed fracture deformityof the mid right clavicle, no acute fractures [AT] 0153 Troponin I, High Sensitivity (CMC): <3 [AT] 0153 CXR: 1. No focal consolidation, pleural effusion, or pneumothorax. [AT] 0154 NSGY replaced wound vac [AT] 0155 I independently interpreted the EKG: Regular rate. Regular rhythm. Normal axis. Normal MS, QRS, and Qtc intervals. No ST segment elevations, depressions, or T wave inversions. Impression: NSR, no STEMI. [AT] 0311 NSGY reports patient has followup in 3 days with them [AT] 0410 Leukocyte Esterase, Urine(!): 25 Robert/ L [AT] 0410 WBC, Urine: 1-5 [AT] 0410 RBC, Urine: 1-2 No uti [AT] 0442 CT h: No acute intracranial abnormality. [AT] ED Course User Index [AT] Roberto Aparicio MD Diagnoses as of 12/10/23442 Encounter for management of wound VAC Disposition As a result of the work-up, the patient was discharged home. she was informed of her diagnosis and instructed to come back with any concerns or worsening of condition. she and was agreeable to the plan as discussed above. she was given the opportunity to ask questions. All of the patient's questions were answered. Procedures Procedures Patient seen and discussed with ED attending physician. Roberto Aparicio MD Emergency Medicine Roberto Aparicio MD Resident 12/10/23443 This patient was seen by the resident physician. I have seen and examined the patient, agree with the workup, evaluation, management and diagnosis. The care plan has been discussed and I concur. My assessment reveals the following: HPI: Patient is a 48 y/o female with h/o L4/5 disc protrusion s/p stimulator removal in September due tohematoma, presented here 4 days ago with wound dehiscence in lumbar spine and wound vac placed by NSGY. Reports that she went to [facility] ED after passing out. She hit her head and had LOC, but not on blood thinners. Fell on right hand. X-ray done at [facility], which was negative. No CT head done. No current headache or dizziness. No neck pain. Baseline low back pain. On oxycodone 5 mg tabs at home. No incontinence. No CP/SOB/abd pain. PE: Vital signs reviewed in nursing triage note, EMR flowsheets, and at patient's bedside GEN: Patient is awake, alert, calm, cooperative, and in mild painful distress. HEAD: Normocephalic and atraumatic. EYES: Anicteric sclera. PERRL. MOUTH: Mucous membranes moist. CV: Regular rate and rhythm. (+) s1/s2. No murmurs/rubs/gallops. PULM: CTAB. No wheezes, rales, or crackles. GI: Soft, non-tender, non-distended without rebound or guarding. BACK: Moderate midline LS spine tenderness to palpation with overlying wound dehiscence. No LS paravertebral tenderness to palpation. No midline T spine tenderness to palpation. No T spine paravertebral tenderness to palpation. EXT: No deformities noted. Full range of motion at all major joints. Non-tender. NEURO: Moves all extremities. No gross focal deficits. Sensation grossly intact throughout. SKIN: Warm, dry. No erythema or ecchymosis. Labs Reviewed CBC WITH AUTO DIFFERENTIAL - Abnormal Result Value WBC 6.5 nRBC 0.0 RBC 4.09 Hemoglobin 12.5 Hematocrit 35.8 (*) MCV 88 MCH 30.6 MCHC 34.9 RDW 12.6 Platelets 295 Neutrophils % 50.6 Immature Granulocytes %, Automated 1.2 (*) Lymphocytes % 35.7 Monocytes % 8.0 Eosinophils % 4.3 Basophils % 0.2 Neutrophils Absolute 3.29 Immature Granulocytes Absolute, Automated 0.08 Lymphocytes Absolute 2.32 Monocytes Absolute 0.52 Eosinophils Absolute 0.28 Basophils Absolute 0.01 COMPREHENSIVE METABOLIC PANEL - Abnormal Glucose 103 (*) Sodium 140 Potassium 3.5 Chloride 105 Bicarbonate 25 Anion Gap 14 Urea Nitrogen 9 Creatinine 0.82 eGFR 89 Calcium 8.7 Albumin 4.0 Alkaline Phosphatase 87 Total Protein 7.1 AST 25 Bilirubin, Total 0.3 ALT 24 URINALYSIS WITH REFLEX MICROSCOPIC - Abnormal Color, Urine Yellow Appearance, Urine Turbid (*) Specific [place], Urine 1.035 pH, Urine 6.0 Protein, Urine 50 (1+) (*) Glucose, Urine Normal Blood, Urine NEGATIVE Ketones, Urine 10 (1+) (*) Bilirubin, Urine NEGATIVE Urobilinogen, Urine 4 (2+) (*) Nitrite, Urine NEGATIVE Leukocyte Esterase, Urine 25 Robert/ L (*) MICROSCOPIC ONLY, URINE - Abnormal WBC, Urine 1-5 RBC, Urine 1-2 Squamous Epithelial Cells, Urine 10-25 (FEW) Mucus, Urine 4+ Calcium Oxalate Crystals, Urine 4+ (*) TROPONIN I, HIGH SENSITIVITY - Normal Troponin I, High Sensitivity (CMC) <3 Narrative: Less than 99th percentile of normal range cutoff- Female and children under 18 years old <35 ng/L; Male <54 ng/L: Negative Repeat testing should be performed if clinically indicated. Female and children under 18 years old 35-120 ng/L; Male 54-120 ng/L: Consistent with possible cardiac damage and possible increased clinical risk. Serial measurements may help to assess extent of myocardial damage. >120 ng/L: Consistent with cardiac damage, increased clinical risk and myocardial infarction. Serial measurements may help assess extent of myocardial damage. NOTE: Children less than 1 year old may have higher baseline troponin levels and results should be interpreted in conjunction with the overall clinical context. NOTE: Troponin I testing is performed using a different testing methodology at [facility] than at other [facility]. Direct result comparisons should only be made within the same method. URINE CASTRO TUBE CT head wo IV contrast Final Result No acute intracranial abnormality. MACRO: None Signed by: Kati Beth 12/10/2023 4:41 AM Dictation workstation: [id number] XR chest 2 views Final Result 1. No acute cardiopulmonary process. I personally reviewed the image(s)/study and resident interpretation. I agree with the findings as stated by resident Amado Todd. Data analyzed and images interpreted at [facility], [place], [place]. MACRO: None Signed by: Katijazmine Beth 12/10/2023 2:29 AM Dictation workstation: [id number] Medical Decision Making: - IV - Labs - CXR - Pain meds - CT head without contrast - NSGY consult, who replaced wound vac - Follow up with NSGY per their recs - Patient advised to return to the ED for any worsening or new symptoms. EKG: EKG independently reviewed by the attending ED physician, and I and concur with the resident's/advanced practice provider's interpretation. Sinus rhythm at 68 bpm with SA, normal axis, normal intervals, inverse T wave in III. Similar to old EKG on 12/09/23. Differential Diagnoses Considered: Syncope, Dehydration, Infection, Wound dehiscence Chronic Medical Conditions Significantly Affecting Care: L4/L5 disc protrusion External Records Reviewed: I reviewed recent and relevant outside records including: Provider note from [facility] Escalation of Care: Appropriate for outpatient management MD Declan Rivera MD 12/10/23 0643 Associated attestation - Declan Laureano MD - 12/10/2023 6:43 AM EDT The patient was seen by the resident/fellow. I have personally performed a substantive portion of the encounter. I have seen and examined the patient; agree with the workup, evaluation, MDM, management and diagnosis. The care plan has been discussed with the resident/fellow; I have reviewed the resident/fellow s note and agree with the documented findings with the exception/addition of the following: See above for my attestation note. * Germaine Huitron RN - 12/09/2023 6:32 PM EDT Pt presents via triage for wound vac replacement. Pt had a stimulator put in spine but taken out 10/12 due to infection - procedures done by Dr. Adams. Wound vac placed on Saturday due to incision not healing but came off today. States that she needs a new vac placed - went to [place] to have it done but that stated they couldn't due it and to come here. Incision noted to be about 1-2 inches with nodrainage at this time. Denies any current antibiotic use. Denies fever/chills. Endorses 10/10 chronic back pain - takes oxy at home as needed. Appears stable and in no distress with equal chest rise and fall and unlabored breathing. documented in this [facility] Work Phone: [phone]) 435-542509-16-2024 Emergency department Triage note* Germaine Huitron RN - 12/09/2023 6:32 PM EDT Pt presents via triage for wound vac replacement. Pt had a stimulator put in spine but taken out 10/12 due to infection - procedures done by Dr. Adams. Wound vac placed on Saturday due to incision not healing but came off today. States that she needs a new vac placed - went to [place] to have it done but that stated they couldn't due it and to come here. Incision noted to be about 1-2 inches with nodrainage at this time. Denies any current antibiotic use. Denies fever/chills. Endorses 10/10 chronic back pain - takes oxy at home as needed. Appears stable and in no distress with equal chest rise and fall and unlabored breathing. [facility] Work Phone: [phone]) 123-336809-16-2024 Physician Emergency department Note* Roberto Aparicio MD - 12/09/2023 6:32 PM EDT Images from the original note were not included. Emergency Department Provider Note History of Present Illness History provided by: Patient Limitations to History: None External Records Reviewed with Brief Summary: Discharge Summary from 12/08 which showed lightheadedness, right arm pain with negative x-rays HPI: Jerad Tracy is a 48 y.o. female with history of L4-L5 disc protrusion s/p stimulator placement September 2023, chronic low back pain, hepatitis C, depression, bipolar disorder presenting to the ED today for wound vac replacement. Patient had a stimulator removed as well in September 2023 because he developed a hematoma. Was seen by neurosurgery on 12/05 for concern for hematoma, wound VAC was placed by neurosurgery. Patient reports that she felt lightheaded, passed out. She endorses head trauma, loss of consciousness, denies blood thinners. She reports that she also fell on her right hand, had x-rays done which were negative. She denies any current headache, lightheadedness, dizziness, vertigo, nausea, vomiting, fever. She also endorses chest tightness, no radiation of the chest pain or pleuritic chest pain.She endorses chronic pain to her lower back. Physical Exam Triage vitals: T 36.5 C (97.7 F) HR 77 BP 135/83 RR 20 O2 97 % None (Room air) General: Awake, alert, in no acute distress Eyes: Gaze conjugate. No scleral icterus or injection HENT: Normo-cephalic, atraumatic. No stridor CV: Regular rate, regular rhythm. Radial pulses 2+ bilaterally Resp: Breathing non-labored, speaking in full sentences. Clear to auscultation bilaterally GI: Soft, non-distended, non-tender. No rebound or guarding. MSK/Extremities: No gross bony deformities. Moving all extremities Skin: Warm. Appropriate color, incision to L-spine clean, dry, intact, nonpurulent tender to palpation Neurologic: Patient is awake and alert. Speech is clear. Face is symmetric without facial droop andfacial sensation to light touch equal bilaterally. Uvula midline. Tongue protrusion midline. Hearing intact bilaterally. Full and equal shoulder shrug and head turn against resistance. 5/5 motor strength of UEs and LEs. Sensation to light touch intact in all four extremities. Finger to nose and heel to gil intact. No pronator drift. Psych: Appropriate mood and affect Medical Decision Making & ED Course Medical Decision Makin y.o. female with history of L4-L5 disc protrusion s/p stimulator placement September 2023, chronic low back pain, hepatitis C, depression, bipolar disorder presenting to the ED today for wound vac replacement. Currently afebrile, neurovascularly intact. Exam shows incision to L-spine clean, dry, intact, nonpurulent tender to palpation, concern for any wound infection at this time, cellulitis, abscess. Neuroexam currently unremarkable, no headache, lightheadedness or dizziness. X-rays were negative at outside hospital. Patient reports chronic pain, had Oxy 5 at noon which didnot help her symptoms. Patient given meds for symptomatic treatment. Given patient had head trauma and loss of consciousness, CT head ordered to rule out any SAH, ICH. UA ordered to rule out any UTI. ACS workup pursued given lightheadedness and chest tightness. Neurosurgery was consulted given previous placement of wound VAC by their team. CT head negative for SAH, ICH. Patient was discharged in stable condition with neurosurgery follow-up in 3 days. Patient given return precautions. ---- Differential diagnoses considered include but are not limited to: as noted in [facility] Social Determinants of Health which Significantly Impact Care: None identified EKG Independent Interpretation: EKG interpreted by myself. Please see ED Course for full interpretation. Independent Result Review and Interpretation: Relevant laboratory and radiographic results were reviewed and independently interpreted by myself. As necessary, they are commented on in the ED Course. Chronic conditions affecting the patient's care: As documented above in [facility] The patient was discussed with the following consultants/services: Neurosurgery Care Considerations: As documented above in [facility] ED Course: ED Course as of 12/10/23 0443 e Dec 10, 2023 0053 GLUCOSE(!): 103 [AT] 0054 SODIUM: 140 [AT] 0054 POTASSIUM: 3.5 [AT] 0054 Blood Urea Nitrogen: 9 [AT] 0054 Creatinine: 0.82 [AT] 0054 WBC: 6.5 [AT] 0054 HEMOGLOBIN: 12.5 [AT] 0054 Platelets: 295 [AT] 0055 X-ray today at OSH right shoulder elbow hand performed showed remote healed fracture deformityof the mid right clavicle, no acute fractures [AT] 0153 Troponin I, High Sensitivity (CMC): <3 [AT] 0153 CXR: 1. No focal consolidation, pleural effusion, or pneumothorax. [AT] 0154 NSGY replaced wound vac [AT] 0155 I independently interpreted the EKG: Regular rate. Regular rhythm. Normal axis. Normal MS, QRS, and Qtc intervals. No ST segment elevations, depressions, or T wave inversions. Impression: NSR, no STEMI. [AT] 0311 NSGY reports patient has followup in 3 days with them [AT] 0410 Leukocyte Esterase, Urine(!): 25 Robert/ L [AT] 0410 WBC, Urine: 1-5 [AT] 0410 RBC, Urine: 1-2 No uti [AT] 0442 CT h: No acute intracranial abnormality. [AT] ED Course User Index [AT] Roberto Aparicio MD Diagnoses as of 12/10/23 044 Encounter for management of wound VAC Disposition As a result of the work-up, the patient was discharged home. she was informed of her diagnosis and instructed to come back with any concerns or worsening of condition. she and was agreeable to the plan as discussed above. she was given the opportunity to ask questions. All of the patient's questions were answered. Procedures Procedures Patient seen and discussed with ED attending physician. Roberto Aparicio MD Emergency Medicine Roberto Aparicio MD Resident 12/10/23443 This patient was seen by the resident physician. I have seen and examined the patient, agree with the workup, evaluation, management and diagnosis. The care plan has been discussed and I concur. My assessment reveals the following: HPI: Patient is a 48 y/o female with h/o L4/5 disc protrusion s/p stimulator removal in September due tohematoma, presented here 4 days ago with wound dehiscence in lumbar spine and wound vac placed by NSGY. Reports that she went to [facility] ED after passing out. She hit her head and had LOC, but not on blood thinners. Fell on right hand. X-ray done at [facility], which was negative. No CT head done. No current headache or dizziness. No neck pain. Baseline low back pain. On oxycodone 5 mg tabs at home. No incontinence. No CP/SOB/abd pain. PE: Vital signs reviewed in nursing triage note, EMR flowsheets, and at patient's bedside GEN: Patient is awake, alert, calm, cooperative, and in mild painful distress. HEAD: Normocephalic and atraumatic. EYES: Anicteric sclera. PERRL. MOUTH: Mucous membranes moist. CV: Regular rate and rhythm. (+) s1/s2. No murmurs/rubs/gallops. PULM: CTAB. No wheezes, rales, or crackles. GI: Soft, non-tender, non-distended without rebound or guarding. BACK: Moderate midline LS spine tenderness to palpation with overlying wound dehiscence. No LS paravertebral tenderness to palpation. No midline T spine tenderness to palpation. No T spine paravertebral tenderness to palpation. EXT: No deformities noted. Full range of motion at all major joints. Non-tender. NEURO: Moves all extremities. No gross focal deficits. Sensation grossly intact throughout. SKIN: Warm, dry. No erythema or ecchymosis. Labs Reviewed CBC WITH AUTO DIFFERENTIAL - Abnormal Result Value WBC 6.5 nRBC 0.0 RBC 4.09 Hemoglobin 12.5 Hematocrit 35.8 (*) MCV 88 MCH 30.6 MCHC 34.9 RDW 12.6 Platelets 295 Neutrophils % 50.6 Immature Granulocytes %, Automated 1.2 (*) Lymphocytes % 35.7 Monocytes % 8.0 Eosinophils % 4.3 Basophils % 0.2 Neutrophils Absolute 3.29 Immature Granulocytes Absolute, Automated 0.08 Lymphocytes Absolute 2.32 Monocytes Absolute 0.52 Eosinophils Absolute 0.28 Basophils Absolute 0.01 COMPREHENSIVE METABOLIC PANEL - Abnormal Glucose 103 (*) Sodium 140 Potassium 3.5 Chloride 105 Bicarbonate 25 Anion Gap 14 Urea Nitrogen 9 Creatinine 0.82 eGFR 89 Calcium 8.7 Albumin 4.0 Alkaline Phosphatase 87 Total Protein 7.1 AST 25 Bilirubin, Total 0.3 ALT 24 URINALYSIS WITH REFLEX MICROSCOPIC - Abnormal Color, Urine Yellow Appearance, Urine Turbid (*) Specific [place], Urine 1.035 pH, Urine 6.0 Protein, Urine 50 (1+) (*) Glucose, Urine Normal Blood, Urine NEGATIVE Ketones, Urine 10 (1+) (*) Bilirubin, Urine NEGATIVE Urobilinogen, Urine 4 (2+) (*) Nitrite, Urine NEGATIVE Leukocyte Esterase, Urine 25 Robert/ L (*) MICROSCOPIC ONLY, URINE - Abnormal WBC, Urine 1-5 RBC, Urine 1-2 Squamous Epithelial Cells, Urine 10-25 (FEW) Mucus, Urine 4+ Calcium Oxalate Crystals, Urine 4+ (*) TROPONIN I, HIGH SENSITIVITY - Normal Troponin I, High Sensitivity (CMC) <3 Narrative: Less than 99th percentile of normal range cutoff- Female and children under 18 years old <35 ng/L; Male <54 ng/L: Negative Repeat testing should be performed if clinically indicated. Female and children under 18 years old 35-120 ng/L; Male 54-120 ng/L: Consistent with possible cardiac damage and possible increased clinical risk. Serial measurements may help to assess extent of myocardial damage. >120 ng/L: Consistent with cardiac damage, increased clinical risk and myocardial infarction. Serial measurements may help assess extent of myocardial damage. NOTE: Children less than 1 year old may have higher baseline troponin levels and results should be interpreted in conjunction with the overall clinical context. NOTE: Troponin I testing is performed using a different testing methodology at [facility] than at other [facility]. Direct result comparisons should only be made within the same method. URINE CASTRO TUBE CT head wo IV contrast Final Result No acute intracranial abnormality. MACRO: None Signed by: Kati Beth 12/10/2023 4:41 AM Dictation workstation: [id number] XR chest 2 views Final Result 1. No acute cardiopulmonary process. I personally reviewed the image(s)/study and resident interpretation. I agree with the findings as stated by resident Amado Todd. Data analyzed and images interpreted at [facility], [place], [place]. MACRO: None Signed by: Kati Beth 12/10/2023 2:29 AM Dictation workstation: [id number] Medical Decision Making: - IV - Labs - CXR - Pain meds - CT head without contrast - NSGY consult, who replaced wound vac - Follow up with NSGY per their recs - Patient advised to return to the ED for any worsening or new symptoms. EKG: EKG independently reviewed by the attending ED physician, and I and concur with the resident's/advanced practice provider's interpretation. Sinus rhythm at 68 bpm with SA, normal axis, normal intervals, inverse T wave in III. Similar to old EKG on 12/09/23. Differential Diagnoses Considered: Syncope, Dehydration, Infection, Wound dehiscence Chronic Medical Conditions Significantly Affecting Care: L4/L5 disc protrusion External Records Reviewed: I reviewed recent and relevant outside records including: Provider note from [facility] Escalation of Care: Appropriate for outpatient management MD Declan Rivera MD 12/10/23 0643 Associated attestation - Declan Laureano MD - 12/10/2023 6:43 AM EDT The patient was seen by the resident/fellow. I have personally performed a substantive portion of the encounter. I have seen and examined the patient; agree with the workup, evaluation, MDM, management and diagnosis. The care plan has been discussed with the resident/fellow; I have reviewed the resident/fellow s note and agree with the documented findings with the exception/addition of the following: See above for my attestation note. [facility] Work Phone: [phone]) 948-130209-16-2024 Hospital Discharge instructions* Discharge Instructions* Jarocho Delatorre DO - 12/09/2023 3:23 PM EDT Recommend you contact your surgeon concerning the loss of your wound VAC. You were treated with a wet to dry dressing in the ED. * Attachments The following attachments cannot be sent through Care Everywhere. * Osteoarthritis (Malagasy) * Minor Head Injury, Adult ED (Malagasy) * Taking care of bruises (Malagasy) * Shoulder Pain ED (Malagasy) [facility]: [phone]) 217-463709-16-2024 Note1. Unremarkable radiographic evaluation of the right elbow. MACRO: None. Signed by: Ernestina Bond 12/09/2023 2:36 PM Dictation workstation: [id number] Emergency department Note * Crystal Park RN - 12/07/2023 1:08 PM EDT Patient comes in today endorsing back pain and general weakness; patient had a stimulator removed on 10/13 and wound vac was placed here last night, (12/05) and she states since then she has just not been feeling right ; denies any fever or chills; does endorse a mild SOB, satting WNL in triage, no WOB noted and she is speaking in complete sentences; endorses L sided abdominal pain and nausea with no emesis; endorses diarrhea, no constipation; denies any urinary changes PMHx Stage IV liver disease, L4-L5 disc protrusion, chronic low back pain, hepatitis C, depression,bipolar disorder [facility] Work Phone: [phone]) 714-207209-14-2024 Emergency department Triage note* Crystal Park RN - 12/07/2023 1:08 PM EDT Patient comes in today endorsing back pain and general weakness; patient had a stimulator removed on 10/13 and wound vac was placed here last night, (12/05) and she states since then she has just not been feeling right ; denies any fever or chills; does endorse a mild SOB, satting WNL in triage, no WOB noted and she is speaking in complete sentences; endorses L sided abdominal pain and nausea with no emesis; endorses diarrhea, no constipation; denies any urinary changes PMHx Stage IV liver disease, L4-L5 disc protrusion, chronic low back pain, hepatitis C, depression,bipolar disorder [facility] Work Phone: [phone]) 636-374009-14-2024 History of Present illness Narrative* Alondra Shipley, HOT BLASTER-WAIVER ANALYST - 12/07/2023 1:08 PM EDT Handoff received: 12/07/2023 1800 handoff care received from Doug DUPREE at this time. Please refer to her note for initial plan of care of this patient. Patient signed out to me pending workup results, neurosurgery final recommendations and reevaluation. I agree with my prior providers assessment and plan of care. Workup results were unremarkable. CTabdomen/pelvis and CT lumbar spine showed no acute processes. No underlying fluid collection or abscess. See results review. I did not need to order any additional laboratory/radiologic studies for the patient during my course of care. She was given additional pain medications during my ED course of care with improvement. She did have her family member at bedside to provide a ride home and she was ambulating independently at her baseline without difficulty or dyspnea. Neurosurgery evaluated thepatient in the ED and stated that there is no indication for operative management or admission at this time and they will follow-up with her outpatient as scheduled. Neurosurgery team did replace herwound VAC that was accidentally displaced during her ED visit. She was educated on continued wound care at home. Findings were discussed with patient and patient agreeable for plan to discharge home with neurosurgery and primary care provider follow ups as scheduled for outpatient management and evaluation. Educated that she will likely need physical therapy in addition was provided referral for pain management due to her frequent visits for her uncontrolled pain. I did prescribe her a short course of oxycodone at this time, educated on additional adjunct care at home and verbalized understanding. I did review her OARRS score and educated her on overdose risk and on drug safety at home and she verbalized understanding. Return precautions discussed and patient acknowledged understanding. All questions and concerns answered prior to discharge. This patient was staffed with ED Attending Dr. Bai to review the plan of care during ED course. *Please note that portions of this note may have been completed with a voice recognition program. Efforts were made to edit the dictations but occasionally, words are mis-transcribed. Associated attestation - Elke Bai MD - 12/07/2023 8:39 PM EDT This patient was seen by the advanced practice provider. Agree with the workup, evaluation, MDM, management and diagnosis. The care plan has been discussed. Elke Bai MD documented in this [facility] Work Phone: [phone]) 773-522909-13-2024 Hospital Discharge instructions* Discharge Instructions* Deepa Reddy MD - 12/06/2023 4:38 PM EDT You were seen in the emergency department for back pain following surgery. The neurosurgery team reviewed her imaging and is not concern for infection or seroma at this time. You should follow up with your neurosurgeon in 1 week. A referral has been sent for pain medicine, who can help with chronicmanagement of pain. Please come back to the emergency department if you have fevers/chills, worsening pain, are unable to walk, or have new weakness or numbness of your legs. You are being discharge with a Prevena incisional wound vac in place over a surgical incision to your lumbar spine. Please allow Prevena wound vac dressing to remain in place until follow up with neurosurgery. When showering, do not allow the wound vac dressing or device to become wet. When resting, please make sure to plug in the device with the supplied power cord to maintain the battery. The device has a power button at the center which is encircled by green lights. There will be one less light illuminated each day (every 24 hours) which is to be expected, and signifies the count down of the duration of the vac device. If you experience any issues with your wound vac including alarms, malfunction or dressing issues please refer to the provided instruction manual or contact the surgicaloffice. documented in this [facility] Work Phone: [phone] 530-266209-13-2024 Consult note* Hui Li PA-C - 12/06/2023 4:03 PM EDT Neurosurgery Consult Patient Name: Jerad Tracy Date: 12/06/23 History of Present Illness Jerad Tracy is a 48 y.o. female with a past medical history of chronic low back pain as well as neuropathic pain (R>L) primarily in the anterior thighs and occasionally down to the feet s/p successful SCS trial ([place]) on 08/21/2023 followed by subsequent percutaneous thoracic SCS placement ([place]) on 09/23/2023. Patient initially had great pain relief, however, re-presented with severe back pain and erythema of her lumbar incision concerning for infection and ultimately wished to have the system removed for which she was taken to the OR on 10/13 for washout and removal. Intraoperatively itwas unclear if there was a hematoma causing pressure under the incision or infection (although, cultures from procedure resulted negative). Patient discharged on course of PO antibiotics at that time. Patient unfortunately returned to the ED on 10/29 with severe incisional pain and an MRI demonstrated underlying fluid collection. There was low concern for infection at that time, however, she developed purulent discharge from her lumbar incision on 11/18 ultimately leading to admission for wound care and started on PO antibiotics through 11/25 per Infectious Disease. Patient presented to clinic today for routine follow up and was overall doing well until she noticed increased pain/pressure near her incision for the last 1-2 days. During this time she has also noted intermittent blood tinged drainage from her lumbar incision. The surgical area otherwise was well appearing without surrounding erythema or edema, however, given her extensive history it was recommended she present to the ED for imaging to rule out increasing fluid collection in the surgical site. Neurosurgery consulted for wound management and imaging recommendations. Patient is overall doing well although continues to endorse increasing lumbar pain. She denies any fever, chills, night sweats, CP, SOB, palpitations, nausea, or vomiting. Past Medical History: Diagnosis Date Anxiety Arthritis Bipolar disorder (Multi) Chronic pain disorder Depression HCV (hepatitis C [...] Percutaneous Thoracic Spinal Cord Stimulator Trial TONSILLECTOMY Allergies Allergen Reactions Penicillins Hives Reported hives as a child. Prescribed cephalexin September 2023 and reported itching only (no rash/hives). Also reports having taken amoxicillin in the past and tolerated. Nabumetone Nausea/vomiting and Rash Current Facility-Administered Medications: morphine injection 4 mg, 4 mg, intravenous, Once, Marquis Obrien PA-C ondansetron ODT (Zofran-ODT) disintegrating tablet 4 mg, 4 mg, oral, Once, Marquis Obrien PA-C Current Outpatient Medications: acetaminophen (Tylenol) 325 mg tablet, Take 2 tablets (650 mg) by mouth every 6 hours if needed formild pain (1 - 3)., Disp: 30 tablet, Rfl: 0 FLUoxetine (PROzac) 60 mg tablet, [...] not crush or chew., Disp: , Rfl: oxyCODONE (Roxicodone) 5 mg immediate release tablet, Take 1 tablet (5 mg) by mouth every 6 hours if needed for severe pain (7 - 10)., Disp: 12 tablet, Rfl: 0 sennosides-docusate sodium (Judy-Colace) 8.6-50 mg tablet, Take 2 tablets by mouth 2 times a day asneeded for constipation., Disp: , Rfl: Family History Problem Relation Name Age of Onset Lung disease Mother COPD Mother Lung disease Father Lung cancer Father Heart disease Father Social History Tobacco Use Smoking status: Every Day Current packs/day: 0.50 Average packs/day: 0.5 packs/day for 32.7 years (16.3 ttl pk-yrs) Types: Cigarettes Start date: 1991 Smokeless tobacco: Never Vaping Use Vaping status: Never Used Substance Use Topics Alcohol use: Never Drug use: Not Currently Comment: last use 2016- heroin Review of Systems Constitutional: Negative for chills, diaphoresis, fatigue and fever. HENT: Negative for congestion and rhinorrhea. Respiratory: Negative for cough, chest tightness and shortness of breath. Cardiovascular: Negative for chest pain, palpitations and leg swelling. Gastrointestinal: Negative for abdominal distention, abdominal pain, constipation, diarrhea, nauseaand vomiting. Genitourinary: Negative for dysuria. Musculoskeletal: Negative for myalgias. Skin: Negative for rash. Neurological: Negative for dizziness, light-headedness, numbness and headaches. Hematological: Does not bruise/bleed easily. Psychiatric/Behavioral: Negative for confusion and sleep disturbance. Objective BP 125/68 Pulse 92 Temp 36.5 C (97.7 F) (Oral) Resp 18 Ht 1.6 m (5' 3 ) Wt 113 kg (250 lb) SpO2 97% BMI 44.29 kg/m Physical Exam Constitutional: A&Ox3, calm and cooperative, NAD. Eyes: PERRL, clear sclera. ENMT: Moist mucous membranes, no apparent injuries or lesions. Head/Neck: Neck supple, no JVD. Cardiovascular: Normal rate and regular rhythm. 2+ equal pulses of the distal extremities. Respiratory/Thorax: CTAB, regular respirations on RA. Good symmetric chest expansion. Gastrointestinal: Abdomen soft, non tender. Extremities: No peripheral edema. Moving all 4 extremities actively. SILT. Neurological: A&Ox3. Psychological: Appropriate mood and behavior. Skin: Lumbar incision with minimal superficial dehisence, healthy appearing granulation tissue present throughout wound bed. No surrounding erythema or edema present. No active drainage or bleeding appreciated. Tenderness to palpation along thoracic/lumbar spine. Diagnostics CT SPINE LUMBAR WITH CONTRAST Result Date: 12/04/2023 12/04/2023 10:42 PM TECHNIQUE: [...] consider dedicated adrenal imaging. Keke Beebe D.O.Workstation ID:[id number] Assessment Jerad Tracy is a 48 year old female with a past medical history of chronic low back pain as well as neuropathic pain (R>L) primarily in the anterior thighs and occasionally down to the feet s/p successful SCS trial ([place]) on 08/21/2023 followed by subsequent percutaneous thoracic SCS placement([place]) on 09/23/2023. Patient initially had great pain relief, however, re-presented with severe back pain and erythema of her lumbar incision concerning for infection and ultimately wished to have the system removed for which she was taken to the OR on 10/13 for washout and removal. Intraoperatively it was unclear if there was a hematoma causing pressure under the incision or infection (although,cultures from procedure resulted negative). Patient discharged on course of PO antibiotics at that time. Patient unfortunately returned to the ED on 10/29 with severe incisional pain and an MRI demonstrated underlying fluid collection. There was low concern for infection at that time, however, she developed purulent discharge from her lumbar incision on 11/18 ultimately leading to admission for wound care and started on PO antibiotics through 11/25 per Infectious Disease. Patient presented to clinictoday for routine follow up and was overall doing well until she noticed increased pain/pressure near her incision for the last 1- 2 days. During this time she has also noted intermittent blood tingeddrainage from her lumbar incision. The surgical area otherwise was well appearing without surrounding erythema or edema, however, given her extensive history it was recommended she present to the ED for imaging to rule out increasing fluid collection in the surgical site. Neurosurgery consulted forwound management and imaging recommendations. Plan/Recommendations - Surgical site non-infectious in appearance with small area of superficial dehiscence, healthy granulation tissue present throughout wound base - Surgical site thoroughly cleaned with chlorhexidine prior to application of negative pressure dressing to assist with granulation tissue formation and incisional healing Detailed wound vac instructions reviewed with patient - Recommend lumbar MRI with/without contrast to rule out increasing fluid collection given concern for increased pain - Further neurosurgery recommendations pending imaging review - Follow up appointment with neurosurgery requested in 1 week for incisional check and wound vac removal - Remainder of care per ED Patient and plan discussed with Dr. Bryan Li PA-C Neurologic Surgery [place] Pager #[phone] Total face to face time spent with patient/family of 60 minutes, with >50% of the time spent discussing plan of care/management, counseling/educating on disease processes, explaining results of diagnostic testing. [facility] Work Phone: [phone]) [phone] Consult note* Hui Li PA-C - 12/06/2023 4:03 PM EDT Neurosurgery Consult Patient Name: Jerad Tracy Date: 12/06/23 History of Present Illness Jerad Tracy is a 48 y.o. female with a past medical history of chronic low back pain as well as neuropathic pain (R>L) primarily in the anterior thighs and occasionally down to the feet s/p successful SCS trial ([place]) on 08/21/2023 followed by subsequent percutaneous thoracic SCS placement ([place]) on 09/23/2023. Patient initially had great pain relief, however, re-presented with severe back pain and erythema of her lumbar incision concerning for infection and ultimately wished to have the system removed for which she was taken to the OR on 10/13 for washout and removal. Intraoperatively itwas unclear if there was a hematoma causing pressure under the incision or infection (although, cultures from procedure resulted negative). Patient discharged on course of PO antibiotics at that time. Patient unfortunately returned to the ED on 10/29 with severe incisional pain and an MRI demonstrated underlying fluid collection. There was low concern for infection at that time, however, she developed purulent discharge from her lumbar incision on 11/18 ultimately leading to admission for wound care and started on PO antibiotics through 11/25 per Infectious Disease. Patient presented to clinic today for routine follow up and was overall doing well until she noticed increased pain/pressure near her incision for the last 1-2 days. During this time she has also noted intermittent blood tinged drainage from her lumbar incision. The surgical area otherwise was well appearing without surrounding erythema or edema, however, given her extensive history it was recommended she present to the ED for imaging to rule out increasing fluid collection in the surgical site. Neurosurgery consulted for wound management and imaging recommendations. Patient is overall doing well although continues to endorse increasing lumbar pain. She denies any fever, chills, night sweats, CP, SOB, palpitations, nausea, or vomiting. Past Medical History: Diagnosis Date Anxiety Arthritis Bipolar disorder (Multi) Chronic pain disorder Depression HCV (hepatitis C [...] Percutaneous Thoracic Spinal Cord Stimulator Trial TONSILLECTOMY Allergies Allergen Reactions Penicillins Hives Reported hives as a child. Prescribed cephalexin September 2023 and reported itching only (no rash/hives). Also reports having taken amoxicillin in the past and tolerated. Nabumetone Nausea/vomiting and Rash Current Facility-Administered Medications: morphine injection 4 mg, 4 mg, intravenous, Once, Marquis Obrien PA-C ondansetron ODT (Zofran-ODT) disintegrating tablet 4 mg, 4 mg, oral, Once, Marquis Obrien PA-C Current Outpatient Medications: acetaminophen (Tylenol) 325 mg tablet, Take 2 tablets (650 mg) by mouth every 6 hours if needed formild pain (1 - 3)., Disp: 30 tablet, Rfl: 0 FLUoxetine (PROzac) 60 mg tablet, [...] not crush or chew., Disp: , Rfl: oxyCODONE (Roxicodone) 5 mg immediate release tablet, Take 1 tablet (5 mg) by mouth every 6 hours if needed for severe pain (7 - 10)., Disp: 12 tablet, Rfl: 0 sennosides-docusate sodium (Judy-Colace) 8.6-50 mg tablet, Take 2 tablets by mouth 2 times a day asneeded for constipation., Disp: , Rfl: Family History Problem Relation Name Age of Onset Lung disease Mother COPD Mother Lung disease Father Lung cancer Father Heart disease Father Social History Tobacco Use Smoking status: Every Day Current packs/day: 0.50 Average packs/day: 0.5 packs/day for 32.7 years (16.3 ttl pk-yrs) Types: Cigarettes Start date: 1991 Smokeless tobacco: Never Vaping Use Vaping status: Never Used Substance Use Topics Alcohol use: Never Drug use: Not Currently Comment: last use 2016- heroin Review of Systems Constitutional: Negative for chills, diaphoresis, fatigue and fever. HENT: Negative for congestion and rhinorrhea. Respiratory: Negative for cough, chest tightness and shortness of breath. Cardiovascular: Negative for chest pain, palpitations and leg swelling. Gastrointestinal: Negative for abdominal distention, abdominal pain, constipation, diarrhea, nauseaand vomiting. Genitourinary: Negative for dysuria. Musculoskeletal: Negative for myalgias. Skin: Negative for rash. Neurological: Negative for dizziness, light-headedness, numbness and headaches. Hematological: Does not bruise/bleed easily. Psychiatric/Behavioral: Negative for confusion and sleep disturbance. Objective BP 125/68 Pulse 92 Temp 36.5 C (97.7 F) (Oral) Resp 18 Ht 1.6 m (5' 3 ) Wt 113 kg (250 lb) SpO2 97% BMI 44.29 kg/m Physical Exam Constitutional: A&Ox3, calm and cooperative, NAD. Eyes: PERRL, clear sclera. ENMT: Moist mucous membranes, no apparent injuries or lesions. Head/Neck: Neck supple, no JVD. Cardiovascular: Normal rate and regular rhythm. 2+ equal pulses of the distal extremities. Respiratory/Thorax: CTAB, regular respirations on RA. Good symmetric chest expansion. Gastrointestinal: Abdomen soft, non tender. Extremities: No peripheral edema. Moving all 4 extremities actively. SILT. Neurological: A&Ox3. Psychological: Appropriate mood and behavior. Skin: Lumbar incision with minimal superficial dehisence, healthy appearing granulation tissue present throughout wound bed. No surrounding erythema or edema present. No active drainage or bleeding appreciated. Tenderness to palpation along thoracic/lumbar spine. Diagnostics CT SPINE LUMBAR WITH CONTRAST Result Date: 12/04/2023 12/04/2023 10:42 PM TECHNIQUE: [...] consider dedicated adrenal imaging. Keke Beebe D.O.Workstation ID:[id number] Assessment Jerad Tracy is a 48 year old female with a past medical history of chronic low back pain as well as neuropathic pain (R>L) primarily in the anterior thighs and occasionally down to the feet s/p successful SCS trial ([place]) on 08/21/2023 followed by subsequent percutaneous thoracic SCS placement([place]) on 09/23/2023. Patient initially had great pain relief, however, re-presented with severe back pain and erythema of her lumbar incision concerning for infection and ultimately wished to have the system removed for which she was taken to the OR on 10/13 for washout and removal. Intraoperatively it was unclear if there was a hematoma causing pressure under the incision or infection (although,cultures from procedure resulted negative). Patient discharged on course of PO antibiotics at that time. Patient unfortunately returned to the ED on 10/29 with severe incisional pain and an MRI demonstrated underlying fluid collection. There was low concern for infection at that time, however, she developed purulent discharge from her lumbar incision on 11/18 ultimately leading to admission for wound care and started on PO antibiotics through 11/25 per Infectious Disease. Patient presented to clinictoday for routine follow up and was overall doing well until she noticed increased pain/pressure near her incision for the last 1- 2 days. During this time she has also noted intermittent blood tingeddrainage from her lumbar incision. The surgical area otherwise was well appearing without surrounding erythema or edema, however, given her extensive history it was recommended she present to the ED for imaging to rule out increasing fluid collection in the surgical site. Neurosurgery consulted forwound management and imaging recommendations. Plan/Recommendations - Surgical site non-infectious in appearance with small area of superficial dehiscence, healthy granulation tissue present throughout wound base - Surgical site thoroughly cleaned with chlorhexidine prior to application of negative pressure dressing to assist with granulation tissue formation and incisional healing Detailed wound vac instructions reviewed with patient - Recommend lumbar MRI with/without contrast to rule out increasing fluid collection given concern for increased pain - Further neurosurgery recommendations pending imaging review - Follow up appointment with neurosurgery requested in 1 week for incisional check and wound vac removal - Remainder of care per ED Patient and plan discussed with Dr. Bryan Li PA-C [facility] [place] Pager #[phone] Total face to face time spent with patient/family of 60 minutes, with >50% of the time spent discussing plan of care/management, counseling/educating on disease processes, explaining results of diagnostic testing. [facility] Work Phone: 1(204) 828-166109-13-2024 Emergency department Note* Lo Dan RN - 12/06/2023 1:29 PM EDT Pt presents from neuro appt, sent to rule out hematoma on her back. Pt had a stimulator removed on 10/14/23 documented [facility] Work Phone: 1(281) 209-385509-13-2024 Emergency department Triage note* Lo Dan RN - 12/06/2023 1:29 PM EDT Pt presents from neuro appt, sent to rule out hematoma on her back. Pt had a stimulator removed on 10/14/23 [facility]09-13-2024 History of Present illness Narrative * Elke Adams MD - 12/06/2023 12:00 PM EDT [facility] Neurosurgery Diagnosis Jerad Collins was seen today for follow-up. Diagnoses and all orders for this visit: Dehiscence of wound of skin, subsequent encounter Neuropathic pain Patient Discussion/Summary 1) Today we discussed that your incision continues to look good and there has never been any positive bacterial growth from the incision. As such, it is unclear if there was ever an infection vs a small hematoma causing pressure under the incision initially. 2) However, given that you are again having new pain, I would like you to go to the ER for repeat imaging to see if the fluid collection is stable, improved, or worse. If stable or improved, then I recommend we place a pravena wound drain on your incision to help with the closure. If the fluid collection looks worse on imaging, or ou develop concerning drainage from your incision, then we will have to reassess to determine the next best step. Provider Impressions 48 y.o. female with chronic b/l LBP, as well as neuropathic LE pain, R>L, primarily in the anterior thighs and occas down to the feet; s/p successful SCS [facility] w/ [place] on [facility]21/23[facility] [facility] with great pain relief, however, later re-presentedwith severe back pain and erythema of her lumbar incision, concerning for infx, and ultimately wished to have the system removed and underwent wound washout and removal of SCS leads and generator on 10/13; intraop, it was unclear if there was a hematoma causing pressure under the incision or infx (wound cultures negative), and patient was discharged on a course of oral abx. During her postop visiton 10/24, we had discussed proceeding with thoracic lami for reimplant of her system with the generator on the opposite side,yet presented back to the ED on 10/29 for severe incisional pain; lumbar MRI showed underlying fluid collection; however, there was low concern for infx until she developed purulent discharge from her lumbar incision 11/18; she was admitted for wound care and given oral abx through 11/25 per ID recommendations. She has been doing well, yet now has 1-2 days of increased pain/pressure again in lumbar incision and slight blood tinged drainage; wound looks good on exam with healthy appearing granulation tissue. I would like pt to go to ER for repeat imaging to see if fluid collection is increasing and for possible pravena wound drain to be placed. History of Present Illness Chief Complaint: Chief Complaint Patient presents with Follow-up HPI: Jerad Tracy is a 48 y.o. [...] system with the generator on the opposite side, and I had ordered a thoracic MRI for presurgical planning. However, patient presented back to the ED on 10/29 for severe incisional pain; lumbar MRI showed underlying fluid collection; however, there was low concern for infx until she again presented back on 11/07 with purulent discharge from her lumbar incision. She was admitted for wound care and given oral abx through 11/25, per ID recommendations. During her most recent OV with me on 11/28, her incision continued to look clean and was healing via secondary intention, and we plannedto see her back in 1-2 weeks to reassess her wound. She presents today stating that she again has severe pain for the last 1-2 days and she feels like there is more pressure under incision and now notes blood tinged spots of drainage. ROS: As noted in HPI. Previous History Past Medical History: Diagnosis Date Anxiety Arthritis Bipolar disorder (Multi) Chronic pain disorder Depression HCV (hepatitis C [...] packs/day: 0.50 Average packs/day: 0.5 packs/day for 32.7 years (16.3 ttl pk-yrs) Types: Cigarettes Start date: 1991 [...] taken amoxicillin in the past and tolerated. Nabumetone Nausea/vomiting and Rash Current Outpatient Medications Medication Instructions acetaminophen (TYLENOL) 650 mg, oral, Every 6 hours PRN FLUoxetine (PROZAC) 60 mg, oral, Daily hydrOXYzine HCL (ATARAX) 25 mg, oral, 3 times daily PRN naloxone (NARCAN) 4 mg, nasal, As needed, May repeat every 2-3 minutes if needed, alternating nostrils, until medical assistance becomes available. omeprazole (PRILOSEC) 40 mg, oral, Daily, Do not crush or chew. oxyCODONE (ROXICODONE) 5 mg, oral, Every 6 hours PRN sennosides-docusate sodium (Judy-Colace) 8.6-50 mg tablet 2 tablets, oral, 2 times daily PRN Vitals BP 127/83 Pulse 97 Temp 36.6 C (97.9 F) Ht 1.6 m (5' 3 ) Wt 113 kg (250 lb) BMI 44.29 kg/m Physical Exam Incision continues to look good with healthy appearing granulation tissue, no erythema. Of note, there is small area of light blood in lateral part of granulation tissue. Results documented in this [facility] Work Phone: 1(897) 422-463709-12-2024 Hospital Discharge instructions Patient Education 12/05/2023 19:40:10 Chronic Back Pain Chronic Back Pain Chronic [...] pull them backward. 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 Take brief [...] to your body. ?Avoid twisting. Medicines Take dyoj-ezk-phntgkf and prescription medicines only as told by [...] keep your pee (urine) pale yellow. ?Take oloo-uuv-bkyimmr or prescription medicines. ?Eat foods that are [...] provider. Document Revised: 10/29/2022 Document Reviewed: 10/29/2022 [employer] Patient Education 2023 [employer] 12/05/2023 19:40:10 Wound Care, Adult Wound Care, Adult Taking care of your wound properly can help to prevent pain, infection, and scarring. It can also help your wound heal more quickly. Follow instructions from your health care provider about how to care for your wound. Supplies needed: Soap and water. Wound cleanser, saline, or germ-free (sterile) water. Gauze. If needed, a clean bandage (dressing) or other type of wound dressing material to cover or place inthe wound. Follow your health care provider's instructions about what dressing supplies to use. Cream or topical ointment to apply to the wound, if told by your health care provider. How to care for your wound Cleaning the wound Ask your health care provider how to clean the wound. This may include: Using mild soap and water, a wound cleanser, saline, or sterile water. Using a clean gauze to pat the wound dry after cleaning it. Do not rub or scrub the wound. Dressing care Wash your hands with soap and water for at least 20 seconds before and after you change the dressing. If soap and water are not available, 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 Change your dressing as told by your health care provider. This may include: ?Cleaning or rinsing out (irrigating) the wound. ?Application of cream or topical ointment, if told by your health care provider. ?Placing a dressing over the wound or in the wound (packing). ?Covering the wound with an outer dressing. Leave stitches (sutures), yue, skin glue, or adhesive strips in place. These skin closures may need to stay in place for 2 weeks or longer. If adhesive strip edges start to loosen and curl up, you may trim the loose edges. Do not remove adhesive strips completely unless your health care provider tells you to do that. Ask your health care provider when you can leave the wound uncovered. Checking for infection Check your wound area every day for signs of infection. Check for: More redness, swelling, or pain. Fluid or blood. Warmth. Pus or a bad smell. Follow these instructions at home Medicines If you were prescribed an antibiotic medicine, cream, or ointment, take or apply it as told by yourhealth care provider. Do not stop using the antibiotic even if your condition improves. If you were prescribed pain medicine, take it 30 minutes before you do any wound care or as told byyour health care provider. Take nthj-fjg-dmfzdnd and prescription medicines only as told by your health care provider. Eating and drinking Eat a diet that includes protein, vitamin A, vitamin C, and other nutrient-rich foods to help the wound heal. ?Foods rich in protein include meat, fish, eggs, dairy, beans, and nuts. ?Foods rich in vitamin A include carrots [...] only be allowed to take sponge baths. Do not scratch or pick at the wound. Keep it covered as told by your health care provider. Return to your normal activities as told by your health care provider. Ask your health care provider what activities are safe for you. Protect your wound from the sun when you are outside for the first 6 months, or for as long as toldby your health care provider. Cover up the scar area or apply sunscreen that has an SPF of at least30. Do not use any products that contain nicotine or tobacco. These products include cigarettes, chewing tobacco, and vaping devices, such as e-cigarettes. If you need help quitting, ask your health careprovider. Keep all follow-up visits. This is important. Contact a health care provider if: You received a tetanus shot and you have swelling, severe pain, redness, or bleeding at the injection site. Your pain is not controlled with medicine. You have any of these signs of infection: ?More redness, swelling, or pain around the wound. ?Fluid or blood coming from the wound. ?Warmth coming from the wound. ?A fever or chills. You are nauseous or you vomit. You are dizzy. You have a new rash or hardness around the wound. Get help right away if: You have a red streak of skin near the area around your wound. Pus or a bad smell coming from the wound. Your wound has been closed with yue, sutures, skin glue, or adhesive strips and it begins to open up and separate. Your wound is bleeding, and the bleeding does not stop with gentle pressure. These symptoms may represent a serious problem that is an emergency. Do not wait to see if the symptoms will go away. Get medical help right away. Call your local emergency services (911 in the [place] Do not drive yourself to the hospital. Summary Always wash your hands with soap and water for at least 20 seconds before and after changing your dressing. Change your dressing as told by your health care provider. To help with healing, eat foods that are rich in protein, vitamin A, vitamin C, and other nutrients. Check your wound every day for signs of infection. Contact your health care provider if you think that your wound is infected. This information is not intended to replace advice given to you by your health care provider. Make sure you discuss any questions you have with your health care provider. Document Revised: 07/18/2021 Document Reviewed: 07/18/2021 [employer] Patient Education 2023 [employer]. Follow Up Care 12/05/2023 17:37:42 With:Mayra Rosas Address: [address] [place], [place] [address] Business (1) When:12/08/2023 19:13:59 Comments:Make sure to follow-up with your back surgeon as discussed. Return to the emergency room if there is drainage from the wound, redness around the edge of the wound, fever or any new symptoms. [facility] [id number] NoteED Patient Education Note Dermatology Wound Care, [...] and water are not available, 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 ? Change your dressing as told by [...] by your health care provider. ? Take gcjh-awq-krgbdhe and prescription medicines only as told by [...] drive yourself to the (more content not included)...[facility]09-12-2024 Evaluation + Plan noteExtracted from:Title:ED NoteAuthor:Balbina Bryant M.D. HDate:12/05/23 1. Visit for wound check (Z5 1.89: Encounter for other specified aftercare) 2. Chronic back pain (M54.9: Dorsalgia, unspecified) Other chronic pain (G89.29: Other chronic pain) Orders: ketorolac, 60 mg = 2 mL, Injection, IntraMuscular, Once, Stop date 12/05/23 19:12:00 EDT, STAT, Start date 12/05/23 19:12:00 EDT, 12/05/23 19:12:00 EDT Future Scheduled Tests Laboratory* TSH With T4fr Reflex 07/17/23 * Urinalysis with Micro 07/17/23 * Lipid Panel 07/17/23 * Drug Screen Urine 07/17/23 Radiology* MA Mamm Screen w/CAD if perf and 3D Kenan 07/17/23 [facility] [id number] Emergency department Note* Mayra Powers RN - 12/04/2023 11:32 PM EDT Patient discharged to home, alert and oriented, skin warm, dry and pink. Denies needs and or questions. Will follow-up as directed, patient encouraged to return for worsening or new symptoms or otherconcerns. [id number] Emergency department Note* Mayra Powers RN - 12/04/2023 11:32 PM EDT [...] Her previous surgeries were done in the [place] area at the [facility]. Because of the severe pain she presentsto [...] in a car driving back home from [place] to [place]. Startedto have severe low back pain which [...] with her spine surgeon Dr. Adams at [facility] this Saturday. Pain is 9/10. REVIEW [...] Resource Strain: Low Risk (11/17/2023) Received from [facility] Overall Financial Resource Strain (CARDIA) Difficulty of Paying Living Expenses: Not hard at all Food Insecurity: Patient Declined (10/11/2023) Received from [facility] Hunger Vital Sign Worried About Running Out of Food in the Last Year: Patient declined Ran Out of Food in the Last Year: Patient declined Transportation Needs: No Transportation Needs (11/17/2023) Received from [facility] PRAPARE - Transportation Lack of Transportation (Medical): No Lack of Transportation (Non-Medical): No Physical Activity: Patient Declined (10/11/2023) Received from [facility] Exercise Vital Sign Days of Exercise per Week: Patient declined Minutes of Exercise per Session: Patient declined Stress: Patient Declined (10/11/2023) Received from [facility] [employer] - Occupational Stress Questionnaire Feeling of Stress : Patient declined Social Connections: Patient Declined (10/11/2023) Received from [facility] Social Connection and Isolation Panel [NHANES] Frequency of Communication with Friends and Family: Patient declined Frequency of Social Gatherings with Friends and Family: Patient declined Attends Orthodox Services: Patient declined Active Member of Clubs or Organizations: Patient declined Attends Club or Organization Meetings: Patient declined Marital Status: Patient declined Intimate Partner Violence: Patient Declined (10/11/2023) Received from [facility] Humiliation, Afraid, Rape, and Kick questionnaire Fear of Current or Ex-Partner: Patient declined Emotionally Abused: Patient declined Physically Abused: Patient declined Sexually Abused: Patient declined Housing Stability: Low Risk (11/17/2023) Received from [facility] Housing Stability Vital Sign Unable [...] consider dedicated adrenal imaging. Keke Beebe D.O.Workstation ID:[id number] ED COURSE / MEDICAL DECISION MAKING: Jerad Tracy is a 48 year old female who presents to the emergency department with back pain. Patient reports tonight when she was in a car driving back home from [place] to [place]. Started to have severe low back pain [...] with her spine surgeon Dr. Adams at [facility] this Saturday. Pain is 9/10. DDX: Epidural abscess, cellulitis, cauda equina, lumbar fracture, herniated disc, lumbar radiculopathy, any other emergent pathology ED Course as of 12/04/232315Dec 04, 20232304 CT Spine Lumbar With Contrast IMPRESSION: Nonspecific posterior lumbar subcutaneous fat stranding without discrete fluid collection. 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 Incidental bilateral adrenal nodules (indeterminate on the basis of this examination); consider dedicated adrenal imaging. During ED course patient remained hemodynamically stable. Tonight when she was riding in a car going back home to [place] when she had dehiscence of her surgical site in her lumbar spine and started to have back pain which prompted her ED visit. Denies any red flag symptoms fall trauma or injury.On examination there is partial dehiscence of the lumbar spine from the surgical site. Patient had spine surgery in September in [place] with Dr. Adams due to infection of [...] PA-C, 12/04/2023 11:16 PM documented in this encounterOhio [facility] [id number] Hospital Discharge instructions* Discharge Instructions* Nighat Bailey [...] sent through Care Everywhere. * Methocarbamol, ADULT (Malagasy) * Back Pain (Malagasy) * Cyclobenzaprine, ADULT (Malagasy) documented in this encounterOhio State East [id number] Emergency department Note* Ilya Carrillo RN - 12/04/2023 10:40 PM EDT Pt to CT [facility] HospitalRvthjq62-75-3988 Physician Emergency department Note* Ben Urbina MD [...] Her previous surgeries were done in the [place] area at the [facility]. Because of the severe pain she presentsto [...] by: Ben Urbina MD, 12/04/2023 10:14 PM [facility] Work Phone: [phone] Emergency department Note* Rebecca Gómez RN - 12/04/2023 9:53 PM EDT Patient arrives ambulatory to triage with c/o back pain. Patient states she had a stimulator removed a month ago, just completed a 10 hour car ride and thinks that aggravated her back. A&Ox4. [facility] [id number] Physician Emergency department Note* Nighat Bailey PA- C - 12/04/2023 9:53 PM EDT Images from the original note were not included. TRIAGE CHIEF COMPLAINT: Chief Complaint Patient presents with Back Pain HPI: Jerad Tracy is a 48 year old female who presents to the emergency department with back pain. Patient reports tonight when she was in a car driving back home from [place] to [place]. Startedto have severe low back pain which [...] with her spine surgeon Dr. Adams at [facility] this Saturday. Pain is 9/10. REVIEW [...] Resource Strain: Low Risk (11/17/2023) Received from [facility] Overall Financial Resource Strain (CARDIA) Difficulty of Paying Living Expenses: Not hard at all Food Insecurity: Patient Declined (10/11/2023) Received from [facility] Hunger Vital Sign Worried About Running Out of Food in the Last Year: Patient declined Ran Out of Food in the Last Year: Patient declined Transportation Needs: No Transportation Needs (11/17/2023) Received from [facility] PRAPARE - Transportation Lack of Transportation (Medical): No Lack of Transportation (Non-Medical): No Physical Activity: Patient Declined (10/11/2023) Received from [facility] Exercise Vital Sign Days of Exercise per Week: Patient declined Minutes of Exercise per Session: Patient declined Stress: Patient Declined (10/11/2023) Received from [facility] [employer] - Occupational Stress Questionnaire Feeling of Stress : Patient declined Social Connections: Patient Declined (10/11/2023) Received from [facility] Social Connection and Isolation Panel [NHANES] Frequency of Communication with Friends and Family: Patient declined Frequency of Social Gatherings with Friends and Family: Patient declined Attends Orthodox Services: Patient declined Active Member of Clubs or Organizations: Patient declined Attends Club or Organization Meetings: Patient declined Marital Status: Patient declined Intimate Partner Violence: Patient Declined (10/11/2023) Received from [facility] Humiliation, Afraid, Rape, and Kick questionnaire Fear of Current or Ex-Partner: Patient declined Emotionally Abused: Patient declined Physically Abused: Patient declined Sexually Abused: Patient declined Housing Stability: Low Risk (11/17/2023) Received from [facility] Housing Stability Vital Sign Unable [...] VITAL SIGNS: Vitals: 12/04/23 2154 12/04/23 2155 12/04/23223812/04/23 230 BP: (!) 125/91 137/75 117/69 Pulse: 92 [...] consider dedicated adrenal imaging. Keke Beebe D.O.Workstation ID:[id number] ED COURSE / MEDICAL DECISION MAKING: Jerad Tracy is a 48 year old female who presents to the emergency department with back pain. Patient reports tonight when she was in a car driving back home from [place] to [place]. Started to have severe low back pain [...] with her spine surgeon Dr. Adams at [facility] this Saturday. Pain is 9/10. DDX: [...] in a car going back home to [place] when she had dehiscence of her surgical site in her lumbar spine and started to have back pain which prompted her ED visit. Denies any red flag symptoms fall trauma or injury.On examination there is partial dehiscence of the lumbar spine from the surgical site. Patient had spine surgery in September in [place] with Dr. Adams due to infection of [...] Nighat Bailey PA-C, 12/04/2023 11:16 PM T [facility] [id number] Hospital Discharge instructions Patient Education 12/01/2023 14:28:11 [...] products, such as yogurt. General instructions Take wyfi-vww-suzkeug and prescription medicines only as told by [...] provider. Document Revised: 11/23/2021 Document Reviewed: 11/23/2021 [employer] Patient Education 2023 [employer]. 12/01/2023 14:28:11 Flank Pain, Adult, Gfql-vb-Mcwo Flank Pain, Adult Flank pain is pain [...] Rest as told by your doctor. Take nheb-iql-pzgxvdn and prescription medicines only as told by [...] provider. Document Revised: 05/22/2021 Document Reviewed: 05/22/2021 [employer] Patient Education 2023 [employer]. 12/01/2023 14:28:11 Abdominal Pain, Adult, Ciwt-mq-Khdj Abdominal Pain, Adult Many things can cause belly (abdominal) pain. In most cases, belly pain is not a serious problem and can be watched and treated at home. But in some cases, it can be serious. Your doctor will try to find the cause of your belly pain. Follow these instructions at home: Medicines Take exzh-uhr-icucuop and prescription medicines only as told by [...] provider. Document Revised: 12/26/2022 Document Reviewed: 12/26/2022 [email or web address] Patient Education 2023 [employer]. Follow Up Care 12/01/2023 11:43:39 With:Mayra Rosas Address: [facility] [address] [address] Business (1) When:12/04/2023 14:17:39 [facility] 09-08-2024 NoteED Patient Education Note Gastroenterology Hypokalemia [...] such as yogurt. General instructions ? Take pvbx-bsg-zmjruvn and prescription medicines only as told by [...] provider. Document Revised: 11/23/2021 Document Reviewed: 11/23/2021 [employer] Patient Education ? 2023 [employer] Abdominal Pain, Adult Many things can cause belly (abdominal) pain. In most cases, belly pain is not a serious problem and can be watched and treated at home. But in some cases, it can be serious. Your doctor will try to find the cause of your belly pain. Follow these instructions at home: Medicines ? Take qxmc-jxl-jdkytyn and prescription medicines only as told by [...] very little pee, o (more content not included)...[facility]09-08-2024 Evaluation + Plan noteExtracted from:Title:ED Note Author:Gera MILES, Kristie GoveaDate:12/01/23 1. Hypokalemia (E87.6: Hypok alemia) 2. Flank [...] perf and 3D Kenan 07/17/23 [facility] [id number] History of Present illness Narrative* Elke Adams MD - 11/29/2023 9:00 AM EDT [facility] Neurosurgery Diagnosis Jerad Collins was seen today for post-op. Diagnoses and all orders for this visit: Dehiscence of wound of skin, subsequent encounter - Referral to Neurosurgery - oxyCODONE (Roxicodone) 5 mg immediate release tablet; Take 1 tablet (5 mg) by mouth every 6 hoursif needed for severe pain (7 - 10). Postoperative pain - Referral to Neurosurgery - oxyCODONE (Roxicodone) 5 mg immediate release tablet; Take 1 tablet (5 mg) by mouth every 6 hoursif needed for severe pain (7 - 10). Chronic back pain greater than 3 months duration Patient Discussion/Summary 1) Today we discussed wound care and activity restrictions. 2) Your incision continues to look good and is healing well. 3) Follow-up again next week for reassessment of wound. Provider Impressions 48 y.o. female with chronic [...] and ultimately wished to have the system removed and underwent wound washout and removal of SCS [...] system with the generator on the opposite side,yet presented back to the ED on 10/29 for severe incisional pain; lumbar MRI showed underlying fluid collection; however, there was low concern for infx until she developed purulent discharge from her lumbar incision 11/18; shewas admitted for wound care and given oral abx through 11/25 per ID recommendations; currently, incision looks good though still healing via secondary intention. Will plan to see again next week. History of Present Illness Chief Complaint: Chief Complaint Patient presents with Post-op HPI: Jerad Tracy is a 48 y.o. [...] system with the generator on the opposite side, and I had ordered a thoracic MRI for presurgical planning. Patient presented back to the ED on 10/29 for severe incisional pain; lumbar MRI showed underlying fluid collection; however, there was low concern for infx due to prior negative wound cultures and patient had completed a course of antibiotics. During her most recent OV on 11/07, patient presented with superficial wound dehiscence; however, the wound appeared clean and not infected. As such, we planned to delay surgery for re-implantation of her device until her wound is fully healed. We also reviewed her thoracic MRI, which showed mild degen disease, but no concerning central canal stenosis. In the interim, patient developed purulent discharge from her lumbar incision,and was admitted for wound care and ID recommendations. She was ultimately discharged on 11/18 with instructions for wound cleaning and dressing changes, and oral antibiotics through 11/25. During her most recent OV on 11/21, patient continued to look good clinically, was tolerating oral antibiotics, and was getting daily dressing changes with home care. Her incision was still with superficial dehiscence, though, still appeared clean and to be healing. As such, we wished to continue to monitor her wound closely, and advised patient to follow up for repeat wound check in 1 week. ROS: As noted in HPI. Previous History Past Medical History: Diagnosis Date Anxiety Arthritis Bipolar disorder (Multi) Chronic pain disorder Depression HCV (hepatitis C [...] packs/day: 0.50 Average packs/day: 0.5 packs/day for 32.7 years (16.3 ttl pk-yrs) Types: Cigarettes Start date: 1991 Smokeless tobacco: Never Vaping Use Vaping status: Never Used Substance Use Topics Alcohol use: Never Drug use: Not Currently Comment: last use 2015- heroin Family History Problem Relation Name Age of Onset Lung disease Mother COPD Mother Lung disease Father Lung cancer Father Heart disease Father Allergies Allergen Reactions Penicillins Hives Reported hives as a child. Prescribed cephalexin September 2023 and reported itching only (no rash/hives). Also reports having taken amoxicillin in the past and tolerated. Nabumetone Nausea/vomiting and Rash Current Outpatient Medications Medication Instructions acetaminophen (TYLENOL) 650 mg, oral, Every 6 hours PRN FLUoxetine (PROZAC) 60 mg, oral, Daily hydrOXYzine HCL (ATARAX) 25 mg, oral, 3 times daily PRN naloxone (NARCAN) 4 mg, nasal, As needed, May repeat every 2-3 minutes if needed, alternating nostrils, until medical assistance becomes available. omeprazole (PRILOSEC) 40 mg, oral, Daily, Do not crush or chew. oxyCODONE (ROXICODONE) 5 mg, oral, Every 6 hours PRN sennosides-docusate sodium (Judy-Colace) 8.6-50 mg tablet 2 tablets, oral, 2 times daily PRN Vitals BP (!) 148/93 Pulse 75 Temp 36.4 C (97.6 F) Ht 1.6 m (5' 3 ) Wt 113 kg (250 lb) BMI 44.29kg/m Physical Exam Lumbar incision healing well, still slightly open with granulation tissue but approximating nicely,no erythema or purulence or other concerning signs of infx; generator site incision c/d/I with small remnant scab. Results documented in this [facility] Work Phone: 1(144) 385-799209-04-2024 Hospital Discharge instructions Patient Education 11/27/2023 19:48:28 [...] sitting or lying down. General instructions Take pbuz-qqs-aakmoae and prescription medicines only as told by [...] provider. Document Revised: 09/03/2022 Document Reviewed: 09/03/2022 [employer] Patient Education 2023 [employer]. Follow Up Care 11/27/2023 17:44:18 With:Mora Forrest Address: [address] [place], [place] [id number] Business (1) When:11/30/2023 19:33:03 With:Mayra Rosas Address: [address] [place] [address] [address] Business (1) When:11/30/2023 19:32:55 [facility] 09-04-2024 Progress [place] [id number] Emergency Department Note Signed Patient Name: Jerad Tracy [facility] Record #: [id number] Date of : 1975 Age/Sex: 48 / [...] another one placed at the [facility] where she had her previous surgery. [...] History History Provided by: Patient Preferred Language: Malagasy Usual Living Arrangement: With Spouse/Significant Other Smoking [...] % Lymph % (Auto) 22 (20-35) % [place] % (Auto) 6 (4-12) % Eos % (Auto) 1 L (2-5) % Baso % (Auto) 0 (0-1) % Lymph # (Auto) 2.6 (0.5-3.5) 10'3/uL [place] # (Auto) 0.7 (0.2-0.8) 10'3/uL Eos # [...] (CLEAR) Urine pH 7.0 (5.5-8.0) Ur Specific [place] 1.015 (1.005-1.030) Urine Protein Negative (Negative) mg/dL [...] Dose Route Start Last Admin Trade Name Kristianq PRN Reason Stop Dose Admin Bacitracin 1 [...] 0RF ` Dictated By: Flex Veliz MD 11/26/238 Signed By: 11/27/23 8376 Cosigned By (if applicable): [id number] cc: [facility]09-04-2024 Radiology Diagnostic study note[address] [address] [address] Scan Report Signed with Addenda Patient Name: Jerad Tracy [facility] Record #: [id number] Date of : 1975 [place] t #:[id number] Age/Sex: 48 / F Location: ED Attending [...] Signed By: 11/27/23952 DD/ 9 TD/TT: 11/27/23949 Stonemason: [facility] Exam/Order Verified? Y Exam Explained to Patient/Family? Y Was Patient Shielded?N Is Patient ? N Consent Form Completed? Hx Last Menstrual Period: NO CHANCE Does Patient have a Diabetic Device? No Diabetic Device Type: Was the Diabetic Device Removed? If NO: was Removal Consent form completed? Patient was informed of radiation exposure prior to scan? Verified by Technologist:[id number] Comment: [phone] cc: Flex Veliz MD PCP,No [facility]09-01-2024 Hospital Discharge instructions Patient Education 11/24/2023 15:09:05 Knee Sprain, Adult, Pgwb-nl-Bdtp Knee Sprain, Adult A knee sprain is [...] sitting or lying down. General instructions Take tmza-adh-zefdzke and prescription medicines only as told by [...] provider. Document Revised: 09/03/2022 Document Reviewed: 09/03/2022 [employer] Patient Education 2023 [employer] Follow Up Care 11/24/2023 13:15:53 With:Mora Forrest Address: [address] [place] [id number] [employer] (1) When:11/27/2023 15:01:53 Comments:Call Dr for diagnosis based follow up With:Mayra Rosas Address: [address] [place], [place] [address]jazmine, [address] [address]- Business (1) When:Within 3 Day(s) [facility] 09-01-2024 Evaluation + Plan noteExtracted from:Title: ED NoteAuthor:Yaw MILES, Landon GoveaDate:11/24/23 Left knee sprain (S83.92XA: Sprain of unspecified [...] perf and 3D Kenan 07/17/23 [facility] 08-27-2024 Nurse Note* Nyla Fowler RN - 11/19/2023 9:12 AM EDT 4 Eyes Skin Assessment Reason for assessment? Weekly skin rounds Does the patient have a wound? yes Wound RN consult placed? Yes Preventative foam dressing applied? No Four eyes skin check performed with Nakita Mayes RN [facility]08-27-2024 Nurse Note* Nyla Fowler RN - 11/19/2023 9:12 AM EDT 4 Eyes Skin Assessment Reason for assessment? Weekly skin rounds Does the patient have a wound? yes Wound RN consult placed? Yes Preventative foam dressing applied? No Four eyes skin check performed with Nakita Mayes RN * Cathy Moore RN - 11/19/2023 6:52 AM EDT Completed skin rounds with Terri SEXTON, no abnormal findings * Slime Garcia RN - 11/15/2023 4:24 AM EDT I was unable to complete wound care orders for this patient due to unavailability of product, as wedo not carry most on the unit. The doctor was notified of this matter. documented in this [facility] Work Phone: 1(546) 411-321808-27-2024 Plan of care note* Care Plan - Nyla Fowler RN - 11/19/2023 9:11 AM EDT The patient's goals for the shift include Decrease Pain The clinical goals for the shift include pt will remain safe and free from falls throughout shift Problem: Pain Goal: Takes deep breaths with [...] control throughout the shift Outcome: Progressing Problem: Pain [...] monitored and maintained or improved Outcome: Progressing [facility] Work Phone: 1(940) 689-387608-27-2024 Miscellaneous Notes* Care Plan - Nyla Fowler RN - 11/19/2023 9:11 AM EDT The patient's goals for the shift include Decrease Pain The clinical goals for the shift include pt will remain safe and free from falls throughout shift Problem: Pain Goal: Takes deep breaths with [...] control throughout the shift Outcome: Progressing Problem: Pain [...] improved Outcome: Progressing * Care Plan - Miladys Anguiano RN - 11/18/2023 3:25 PM EDT The patient's goals for the shift include Decrease Pain The clinical goals for the shift include safety, pain control, dc planning Patient Aox4, vitals stable. Complains of incisional pain, PRN medication administered as indicated. Ambulatory in room. Plan to discharge home tomorrow. Problem: Pain Goal: Takes deep breaths with improved pain control throughout the shift Outcome: Progressing Goal: Walks with improved pain control throughout the shift Outcome: Progressing Goal: Performs ADL's with improved pain control throughout shift Outcome: Progressing Problem: Safety - Adult Goal: Free from fall injury Outcome: Progressing Problem: Discharge Planning Goal: Discharge to home or other facility with appropriate resources Outcome: Progressing * Care Plan - Elke Paiz RN - 11/17/2023 6:45 AM EDT The patient's goals for the shift include Decrease Pain The clinical goals for the shift include pt pain will be controlled with ordered pain medications See MAR for medication administration Problem: Pain Goal: Turns in bed with improved pain control throughout the shift Outcome: Progressing Goal: Walks with improved pain control throughout the shift Outcome: Progressing Goal: Performs ADL's with improved pain control throughout shift Outcome: Progressing Goal: Free from opioid side effects throughout the shift Outcome: Progressing Problem: Pain [...] and maintained or improved Outcome: Progressing * Significant Event - Theodora Pedroza MD - 11/15/2023 4:47 PM EDT Significant event note # Wound dehiscence with cellulitis c/f epidural abscess A 48 yo female with recent wound infection s/p removal of spinal cord stimulator/lead in 09/2023 treated with a total 3 weeks of antibiotics developed wound dehiscence with cellulitis c/f epidural abscess. Clinically stable give no neurologic deficits. CT showed c/f epidural abscess on 11/12. MRI is pending. There seems no growth of organisms from recent wound infection in September 2023. Empirical treatment was meropenem/vancomycin and transition to PO doxycyline/augmentin for 3 weeks. Patient was still on pain, and was started on bactrim/Keflex since 10/31. Even under antibiotics treatment, patient developed wound infection. No growth of Pseudomonas aeruginosa from recent culture. Would recommend start IV ceftriaxone and IV vancomycin given clinical scenario and her allergy of penicillin/Keflex. Will await MRI and neurolosurgery plan As for erythema around her neck, could be from some drug reaction including Keflex, but not clear. Will monitor closely. No cross reaction between Keflex and ceftriaxone. As for diarrhea, would be reasonable to check CDI given recent antibiotics exposures. Updates 11/13 MRI showed interval decrease size of fluid collection. No epidural abscess. Patient does not seem to have surgical plan. Collected swab culture. Updates 11/14 No neurosurgical plan. Anticipate switch to oral agents. Still await culture finalized. Recommendations -Continue V ceftriaxone 2g daily and IV vancomycin per pharmacy protocol -Will await swab culture Discussed with Dr. Frederick. Please text me via [employer] chat if you have any questions or concerns regarding this patient. ID will continue to follow up this patient. 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 11/13 admitted to Neurosurgery floor for further evaluation and management. ID following for antibiotic therapy. Wound care involved for proper cleansing and dressing changes. 11/15 ID final recs for PO antibiotics (end date 11/25) and no need for follow up with ID. On the day of discharge, the patient was seen and evaluated by the neurosurgery team and deemed suitable for discharge to home. The patient was given detailed discharge instructions and were scheduled to follow up as an outpatient. * Care Plan - Jarad Hein RN - 11/14/2023 10:38 AM EDT The patient's goals for the shift include Decrease Pain The clinical goals for the shift include Pt. will have decreased pain by end of shifft Over the shift, the patient did not make progress toward the following goals. Barriers to progression include. Recommendations to address these barriers include. Problem: Pain Goal: Takes deep breaths with [...] Goal: Free from fall injury Outcome: Progressing documented in this [facility] Work Phone: 1(295) 442-909608-27-2024 Hospital course Narrative* Elke Morin, HOT BLASTER-WAIVER ANALYST - 11/19/2023 7:14 AM EDT Discharge Diagnosis Wound dehiscence Issues Requiring Follow-Up Incisional wound Test Results Pending At Discharge Pending Labs No current pending labs. Hospital Course Jerad Tracy is a 48 year old female with PMH of chronic bilateral low back pain, neuropathic BLE pain (R>L), LL radiculopathy, HCV, GERD, depression, bipolar disorder, 09/22 s/p perc spinal cord stim placement, L buttock generator placement, p/w wound dehiscence, 10/13 s/p wound washout and removal of lead/generator, p/w pain around incision. 11/13 admitted to Neurosurgery floor for further evaluation and management. ID following for antibiotic therapy. Wound care involved for proper cleansing and dressing changes. 11/15 ID final recs for PO antibiotics (end date 11/25) and no need for follow up with ID. On the day of discharge, the patient was seen and evaluated by the neurosurgery team and deemed suitable for discharge to home. The patient was given detailed discharge instructions and were scheduled to follow up as an outpatient. Pertinent Physical Exam At Time of Discharge Physical Exam Eyes: Pupils: Pupils are equal, round, and reactive to light. Cardiovascular: Pulses: Normal pulses. Pulmonary: Effort: Pulmonary effort is normal. Abdominal: Palpations: Abdomen is soft. Skin: Comments: Incisional dressing c/d/i Neurological: Mental Status: She is alert and oriented to person, place, and time. Comments: 07/27 x4 Home Medications Medication List START taking these medications cefdinir 300 mg capsule; Commonly known as: Omnicef; Take 1 capsule (300 mg) by mouth 2 times a day for 18 doses. collagenase 250 unit/gram ointment; Apply topically once daily. CHANGE how you take these medications oxyCODONE 5 mg immediate release tablet; Commonly known as: Roxicodone; Take 1 tablet (5 mg) by mouth every 6 hours if needed for severe pain (7 - 10).; What changed: Another medication with the same name was removed. Continue taking this medication, and follow the directions you see here. CONTINUE taking these medications acetaminophen 325 mg tablet; Commonly known as: Tylenol; Take 2 tablets (650 mg) by mouth every 6 hours if needed for mild pain (1 - 3). FLUoxetine 60 mg tablet; Commonly known as: [...] mg DR capsule; Commonly known as: PriLOSEC sennosides-docusate sodium 8.6-50 mg tablet; Commonly known as: Judy-Colace STOP taking these medications chlorhexidine 0.12 % solution; Commonly known as: Peridex Outpatient Follow-Up Future Appointments Date Time Provider Department Center 11/22/2023 1:00 PM Elke Adams MD [id number] [facility] Elke Morin, HOT BLASTER-WAIVER ANALYST Total face to face time spent with patient/family of 30 minutes, with >50% of the time spent discussing plan of care/management, counseling/educating on disease processes, explaining results of diagnostic testing. documented [facility] Work Phone: [phone]) 732-490108-27-2024 Nurse Note* Cathy Moore RN - 11/19/2023 6:52 AM EDT Completed skin rounds with Terri SEXTON, no abnormal findings [facility]08-26-2024 Plan of care note* Care Plan - Miladys Anguiano RN - 11/18/2023 3:25 PM EDT The patient's goals for the shift include Decrease Pain The clinical goals for the shift include safety, pain control, dc planning Patient Aox4, vitals stable. Complains of incisional pain, PRN medication administered as indicated. Ambulatory in room. Plan to discharge home tomorrow. Problem: Pain Goal: Takes deep breaths with improved pain control throughout the shift Outcome: Progressing Goal: Walks with improved pain control throughout the shift Outcome: Progressing Goal: Performs ADL's with improved pain control throughout shift Outcome: Progressing Problem: Safety - Adult Goal: Free from fall injury Outcome: Progressing Problem: Discharge Planning Goal: Discharge to home or other facility with appropriate resources Outcome: Progressing [facility]08-26-2024 Hospital Discharge instructions* Discharge Instructions* ROX Singh - 11/18/2023 11:46 AM EDT Wound care products: Vashe wound cleanser can be purchased over the counter/Evermind Santyl Collagenase sent to pharmacy documented in this encounterJoint [facility] Work Phone: 1(811) 128-111108-25-2024 History of Present illness Narrative* Grisel Rodriguez RN - 11/17/2023 2:30 PM EDT 11/17/23 1429 Discharge Planning Living Arrangements Spouse/significant other (sig other - Avery) Support Systems Spouse/significant other (sig other - Avery) Assistance Needed none Type of Residence Private residence Number of Stairs to Enter Residence 3 Number of Stairs Within Residence 0 Do you have animals or pets at home? Yes Type of Animals or Pets x2 dogs Who is requesting discharge planning? Provider Home or Post Acute Services None Expected Discharge Disposition Home (needs TBD) Does the patient need discharge transport arranged? No RoundTrip coordination needed? No Financial Resource Strain How hard is it for you to pay for the very basics like food, housing, medical care, and heating? Not hard Housing Stability In the last 12 months, was there a time when you were not able to pay the mortgage or rent on time?N In the past 12 months, how many times have you moved where you were living? 1 At any time in the past 12 months, were you homeless or living in a fpc (including now)? N Transportation Needs In the past 12 months, has lack of transportation kept you from medical appointments or from getting medications? no In the past 12 months, has lack of transportation kept you from meetings, work, or from getting things needed for daily living? No 48 y.o. female on day 4 of admission presenting with wound dehiscence Met w/ pt to introduce myself, discuss role & discharge planning. Denies recent falls. Is independent in ADL's. No mobility assistance, no equipment at home. Feels safe at home. No SW needs at this time. PCP: Dr. Leelee Rosas Pharmacy: [facility], [place] DME: N/A This TCC will continue to follow for home going needs and safe DC plan. Grisel Rodriguez RN * Jd Gates, Sadia - 11/17/2023 12:52 AM EDT Vancomycin Dosing by Pharmacy- Cessation of Therapy Consult to pharmacy for vancomycin dosing has been discontinued by the prescriber, pharmacy will sign off at this time. Please call pharmacy if there are further questions or re-enter a consult if vancomycin is resumed. Jd Gates PharmD * Theodora Pedroza MD - 11/16/2023 5:06 PM EDT Progress Note Interval history; Afebrile # Wound dehiscence with cellulitis c/f epidural abscess A 48 yo female with recent wound infection s/p removal of spinal cord stimulator/lead in 09/2023 treated with a total 3 weeks of antibiotics developed wound dehiscence with cellulitis c/f epidural abscess. Clinically stable give no neurologic deficits. CT showed c/f epidural abscess on 11/12. MRI is pending. There seems no growth of organisms from recent wound infection in September 2023. Empirical treatment was meropenem/vancomycin and transition to PO doxycyline/augmentin for 3 weeks. Patient was still on pain, and was started on bactrim/Keflex since 10/31. Even under antibiotics treatment, patient developed wound infection. No growth of Pseudomonas aeruginosa from recent culture. Would recommend start IV ceftriaxone and IV vancomycin given clinical scenario and her allergy of penicillin/Keflex. Will await MRI and neurolosurgery plan As for erythema around her neck, could be from some drug reaction including Keflex, but not clear. Will monitor closely. No cross reaction between Keflex and ceftriaxone. As for diarrhea, would be reasonable to check CDI given recent antibiotics exposures. Updates 11/13 MRI showed interval decrease size of fluid collection. No epidural abscess. Patient does not seem to have surgical plan. Collected swab culture. Updates 11/14 No neurosurgical plan. Anticipate switch to oral agents. Still await culture finalized. Updates 11/15 Rare gram positive cocci (No MRSA). Can stop ceftriaxone and vancomycin. Transition to oral Cefdinir 300mg BID for 2 weeks given her penicillin allergy; end date 11/25 Recommendations -Can stop ceftriaxone and vancomycin -Transition to oral Cefdinir 300mg BID for 2 weeks ; end date 11/25 -No need to follow up with ID Discussed with Dr. Frederick. Please text me via [employer] chat if you have any questions or concerns regarding this patient. ID will sign off. Theodora Pedroza MD ID fellow PGY5 Team A ID pager [phone] Associated attestation - Sandor Frederick MD - 11/16/2023 5:37 PM EDT I saw and evaluated the patient. I personally obtained the medrano and critical portions of the historyand physical exam or was physically present for medrano and critical portions performed by the resident/fellow. I reviewed the resident/fellow's documentation and discussed the patient with the resident/f garrick. I agree with the resident/fellow's medical decision making as documented in the note. * Theodora Pedroza MD - 11/14/2023 5:54 PM EDT Karina Tracy is a 48 y.o. female on day 1 of admission presenting with Wound dehiscence. Subjective Interval History: Patient reported doing well. Collected swab culture today. Afebrile. Review of Systems Objective Range of Vitals (last 24 hours) Heart Rate: [65-87] Temp: [35.7 C (96.3 F)-37.2 C (99 F)] Resp: [16-18] BP: (104-139)/(53-82) SpO2: [96 %-99 %] Daily Weight 11/13/23 : 113 kg (250 lb) Body mass index is 44.29 kg/m . Physical Exam General: alert, able to answer questions HEENT: no conjunctival injection. anicteric. CVS: RRR. Normal S1 and S2. No m/r/g. RESP: ctab no w/r/r, no increased wob Abd: Soft and lax. ND. Ext: No swelling of the LE b/l. Neuro: Answers questions appropriately. Integumentary: Redness without swelling or tenderness around her neck Mild erythema surrounding wound dehiscence on the prior surgical site with mild purulent drainage Rheumatologic: No joint swelling or edema Antibiotics cefTRIAXone - 2 gram/50 mL vancomycin - 1 gram/200 mL Relevant Results Labs Results from last 72 hours Lab Units 11/12/23 1631 WBC AUTO x10*3/uL 11.5* HEMOGLOBIN g/dL 14.9 HEMATOCRIT % 42.2 PLATELETS AUTO x10*3/uL 366 NEUTROS PCT AUTO % 70.5 LYMPHS PCT AUTO % 22.2 MONOS PCT AUTO % 6.1 EOS PCT AUTO % 0.7 Results from last 72 hours Lab Units 11/12/23 1631 SODIUM mmol/L 138 POTASSIUM mmol/L 3.6 CHLORIDE mmol/L 103 CO2 mmol/L 24 BUN mg/dL 12 CREATININE mg/dL 0.84 GLUCOSE mg/dL 94 CALCIUM mg/dL 9.1 ANION GAP mmol/L 15 EGFR mL/min/1.73m*2 87 Results from last 72 hours Lab Units 11/12/23 1631 ALK PHOS U/L 86 BILIRUBIN TOTAL mg/dL 0.5 PROTEIN TOTAL g/dL 8.1 ALT U/L 19 AST U/L 22 ALBUMIN g/dL 4.2 Estimated Creatinine Clearance: 101.2 mL/min (by C-G formula based on SCr of 0.84 mg/dL). C-Reactive Protein Date Value Ref Range Status 11/12/2023 0.79 <1.00 mg/dL Final 11/09/2023 1.06 (H) <1.00 mg/dL Final 11/01/2023 0.43 <1.00 mg/dL Final Microbiology 10/30 Blood neg 11/05 MRSA nare neg 11/11 Blood Antimicrobial agents ?-late September 2023 Meropenem/vancomycin 10/18-early October PO Doxy/Augmentin 10/31-11/12 PO Bactrim/Keflex Assessment/Plan # Wound dehiscence with cellulitis c/f epidural abscess A 48 yo female with recent wound infection s/p removal of spinal cord stimulator/lead in 09/2023 treated with a total 3 weeks of antibiotics developed wound dehiscence with cellulitis c/f epidural abscess. Clinically stable give no neurologic deficits. CT showed c/f epidural abscess on 11/12. MRI is pending. There seems no growth of organisms from recent wound infection in September 2023. Empirical treatment was meropenem/vancomycin and transition to PO doxycyline/augmentin for 3 weeks. Patient was still on pain, and was started on bactrim/Keflex since 10/31. Even under antibiotics treatment, patient developed wound infection. No growth of Pseudomonas aeruginosa from recent culture. Would recommend start IV ceftriaxone and IV vancomycin given clinical scenario and her allergy of penicillin/Keflex. Will await MRI and neurolosurgery plan As for erythema around her neck, could be from some drug reaction including Keflex, but not clear. Will monitor closely. No cross reaction between Keflex and ceftriaxone. As for diarrhea, would be reasonable to check CDI given recent antibiotics exposures. Updates 11/13 MRI showed interval decrease size of fluid collection. No epidural abscess. Patient does not seem to have surgical plan. Collected swab culture. Recommendations -CD PCR/toxin test if having diarrhea -Continue V ceftriaxone 2g daily and IV vancomycin per pharmacy protocol -Will await swab culture and make sure neurosurgery plan Discussed with Dr. Choi. Please text me via [employer] chat if you have any questions or concerns regarding this patient. ID will continue to follow up this patient. Theodora Pedroza MD ID fellow PGY5 Team A Pager [phone] Associated attestation - Gurjit Choi MD - 11/14/2023 7:13 PM EDT I saw and evaluated the patient. I personally obtained the medrano and critical portions of the historyand physical exam or was physically present for medrano and critical portions performed by the resident/fellow. I reviewed the resident/fellow's documentation and discussed the patient with the resident/len mccauley. I agree with the resident/fellow's medical decision making as documented in the note. * Danuta Aparicio PharmD - 11/14/2023 11:22 AM EDT Pharmacy Admission Order Reconciliation Review Jerad Collins is a 48 y.o. female admitted for Wound dehiscence. Pharmacy reviewed the patient's unreconciled admission medications. Prior to admission medications that were reviewed and acted on by the pharmacist include: Acetaminophen Chlorhexidine Narcan Oxycodone Sennosides/docusate These medications have been reconciled. Any other unreconcilied medications have been addressed and will be ordered or held by the patient's medical team. Medications addressed by the pharmacist may be added or changed by the patient's medical team at any time. Danuta Aparicio PharmD Transitions of Care Pharmacist [facility] Please reach out via Secure Chat for questions * Danuta Aparicio PharmD - 11/14/2023 11:17 AM EDT Pharmacy Medication History Review Jerad Collins is a 48 y.o. female admitted for Wound dehiscence. Pharmacy reviewed the patient's crnnx-cx-tgutkeuea medications and allergies for accuracy. The list below reflects the updated SALES SERVICE COORDINATOR list. Comments regarding how patient may be taking medications differently can be found in the Admit Orders Activity Prior to Admission Medications Prescriptions Last Dose Informant FLUoxetine (PROzac) 60 mg tablet Self Sig: Take 1 tablet (60 mg) by mouth once daily. acetaminophen (Tylenol) 325 mg tablet Self Sig: Take 2 tablets (650 mg) by mouth every 6 hours if needed for mild pain (1 - 3). chlorhexidine (Peridex) 0.12 % solution Self Si ml swish and spit for 30 seconds night prior to surgery and morning of surgery Patient not taking: Reported on 11/09/2023 hydrOXYzine HCL (Atarax) 25 mg tablet Self Sig: Take 1 tablet (25 mg) by mouth 3 times a day as needed for anxiety. naloxone (Narcan) 4 mg/0.1 mL nasal spray Self Sig: Administer 1 spray (4 mg) into affected nostril(s) if needed for opioid reversal. May repeat every 2-3 minutes if needed, alternating nostrils, until medical assistance becomes available. omeprazole (PriLOSEC) [address] capsule Self Sig: Take 2 capsules (40 mg) by mouth once daily. Do not crush or chew. sennosides-docusate sodium (Judy-Colace) 8.6-50 mg tablet Self Sig: Take 2 tablets by mouth 2 times a day as needed for constipation. Facility-Administered Medications: None The list below reflects the updated allergy list. Please review each documented allergy for additional clarification and justification. Allergies Reviewed by Danuta Aparicio PharmD on 11/14/2023 Severity Reactions Comments Penicillins Medium Hives Reported hives as a child. Prescribed cephalexin September 2023 and reported itching only (no rash/hives). Also reports having taken amoxicillin in the past and tolerated. Nabumetone Low Nausea/vomiting, Rash Patient accepts M2B at discharge. Pharmacy has been updated to [facility]. Sources used: Pharmacy dispense history, OARRs, patient interview (good historian- knew drug and frequency; some doses), discharge summary from 10/31 Below are additional concerns with the patient's SALES SERVICE COORDINATOR list. -pt states that she was unable to complete abx prior to admission: Keflex 500 mg -1 four times daily for 14 days and Bactrim DS- 2 tablets BID for 14 days. Patient unsure how many doses she had left Medications ADDED: Senna/docusate PRN Medications CHANGED: Atarax TID to PRN anxiety Omeprazole 20 mg BID to 40 daily Medications REMOVED: Ketoconazole shampoo Danuta Aparicio PharmD, [facility] Transitions of Care Pharmacist [facility] Please reach out via Secure Chat for questions, or if no response call [employer] or [employer] * Sam Eng PharmD - 11/14/2023 6:40 AM EDT Vancomycin Dosing by Pharmacy- FOLLOW UP Jerad Tracy is a 48 y.o. year old female who Pharmacy has been consulted for vancomycin dosing forcellulitis, skin and soft tissue. Based on the patient's indication and renal status this patient is being dosed based on a goal AUC of 400-600. Renal function is currently stable. Current vancomycin dose: 1000 mg given every 12 hours Estimated vancomycin AUC on current dose: 418 mg/L.hr Visit Vitals BP 115/79 (BP Location: Left arm, Patient Position: Lying) Pulse 68 Temp 35.7 C (96.3 F) (Temporal) Resp 18 Lab Results Component Value Date CREATININE 0.84 11/12/2023 CREATININE 0.77 11/09/2023 CREATININE 0.73 11/01/2023 CREATININE 0.74 10/31/2023 Patient weight is as follows: Vitals: 11/13/23 0440 Weight: 113 kg (250 lb) Cultures: No results found for the encounter in last 14 days. No intake/output data recorded. I/O during current shift: No intake/output data recorded. Temp (24hrs), Av.7 C (96.3 F), Min:35.7 C (96.3 F), Max:35.7 C (96.3 F) Assessment/Plan Within goal AUC range. Continue current vancomycin regimen. This dosing regimen is predicted by Insight[employer] to result in the following pharmacokinetic parameters: Regimen: 1000 mg IV every 12 hours. Start time: 09:57 on 11/14/2023 Exposure target: AUC24 (range)400-600 mg/L.hr AUC24,ss: 418 mg/L.hr Probability of AUC24 > 400: 61 % Ctrough,ss: 12.4 mg/L Probability of Ctrough,ss > 20: 1 % Probability of nephrotoxicity (Lodise FRANCISCO 2008): 8 % The next level will be obtained on 11/16 at am lab draw. May be obtained sooner if clinically indicated. Will continue to monitor renal function daily while on vancomycin and order serum creatinine at least every 48 hours if not already ordered. Follow for continued vancomycin needs, clinical response, and signs/symptoms of toxicity. Sam Eng PharmD * Alana Lindquist APRN-WAIVER ANALYST - 11/12/2023 2:29 PM EDT Emergency Medicine Transition of Care Note. I received Jerad Tracy in signout from Dr. Peña. Please see the previous ED provider note for all HPI, PE and MDM up to the time of signout at 0700. This is in addition to the primary record. In brief Jerad Tracy is an 48 y.o. female presenting for Chief Complaint Patient presents with Back Pain At the time of signout we were awaiting: Neurosurgery consultation and recs ED Course as of 11/13/23 1230 Wed Nov 13, 2023 [id number] Attending summary: 48 y/o F with PMH chronic back pain, neuropathic pain, dep/anx who is presenting for back pain in setting of recent post-op infection from spinal stimulator. Had spinal stimulator placed in lumbar spine on 09/22, removed 3 weeks later due to infection. Was on abx for 3 weeks after that. Reports pain worsening in lower back over last 1 week. Seen at OSH ED and in [facility] ED on 11/[address] L spine withconcern for abscess. OSH ED spoke to neurosurgeon, not concerned for abscess and discharge with f/up and no abx. Pain has worsened. Fever to 101 yesterday, along with chills and anorexia. No leg numbness, weakness. No bowel or bladder changes. Taking oxycodone for pain. Vitals unremarkable. Exam shows a well-appearing female with incision over lower L spine with erythema, warmth and tenderness surrounding superior incision without fluctuance or drainage. Neurovasc intact lower extremities. Her exam is more concerning for cellulitis, however in setting of recent radiologic findings of abscess and systemic infectious symptoms, also concerned for persistent abscess. No evidence of cauda equina or spinal cord compression. Labs with leukocytosis to 11.5, previously normal. Plan for pain control and neurosurg consult. Will defer imaging to them as has had recent CT and MR. I believe pt is infected and at minimum requires discharge with PO antibiotics. [SS] ED Course User Index [SS] Cristobal Jessica MD Diagnoses as of 11/13/23 1230 Acute bilateral low back pain without sciatica Infection of deep incisional surgical site after procedure, initial encounter Results for orders placed or performed during the hospital encounter of 11/13/23 Blood Culture Specimen: Peripheral Venipuncture; Blood culture Result Value Ref Range Blood Culture Loaded on Instrument - Culture in progress Blood Culture Specimen: Peripheral Venipuncture; Blood culture Result Value Ref Range Blood Culture Loaded on Instrument - Culture in progress CBC and Auto Differential Result Value Ref Range WBC 11.5 (H) 4.4 - 11.3 x10*3/uL nRBC 0.0 0.0 - 0.0 /100 WBCs RBC 4.80 4.00 - 5.20 x10*6/uL Hemoglobin 14.9 12.0 - 16.0 g/dL Hematocrit 42.2 36.0 - 46.0 % MCV 88 80 - 100 fL MCH 31.0 26.0 - 34.0 pg MCHC 35.3 32.0 - 36.0 g/dL RDW 13.0 11.5 - 14.5 % Platelets 366 150 - 450 x10*3/uL Neutrophils % 70.5 40.0 - 80.0 % Immature Granulocytes %, Automated 0.3 0.0 - 0.9 % Lymphocytes % 22.2 13.0 - 44.0 % Monocytes % 6.1 2.0 - 10.0 % Eosinophils % 0.7 0.0 - 6.0 % Basophils % 0.2 0.0 - 2.0 % Neutrophils Absolute 8.12 (H) 1.20 - 7.70 x10*3/uL Immature Granulocytes Absolute, Automated 0.04 0.00 - 0.70 x10*3/uL Lymphocytes Absolute 2.56 1.20 - 4.80 x10*3/uL Monocytes Absolute 0.70 0.10 - 1.00 x10*3/uL Eosinophils Absolute 0.08 0.00 - 0.70 x10*3/uL Basophils Absolute 0.02 0.00 - 0.10 x10*3/uL Comprehensive metabolic panel Result Value Ref Range Glucose 94 74 - 99 mg/dL Sodium 138 136 - 145 mmol/L Potassium 3.6 3.5 - 5.3 mmol/L Chloride 103 98 - 107 mmol/L Bicarbonate 24 21 - 32 mmol/L Anion Gap 15 10 - 20 mmol/L Urea Nitrogen 12 6 - 23 mg/dL Creatinine 0.84 0.50 - 1.05 mg/dL eGFR 87 >60 mL/min/1.73m*2 Calcium 9.1 8.6 - 10.6 mg/dL Albumin 4.2 3.4 - 5.0 g/dL Alkaline Phosphatase 86 33 - 110 U/L Total Protein 8.1 6.4 - 8.2 g/dL AST 22 9 - 39 U/L Bilirubin, Total 0.5 0.0 - 1.2 mg/dL ALT 19 7 - 45 U/L Sedimentation rate, automated Result Value Ref Range Sedimentation Rate 27 (H) 0 - 20 mm/h C-reactive protein Result Value Ref Range C-Reactive Protein 0.79 <1.00 mg/dL SST TOP Result Value Ref Range Extra Tube Hold for add-ons. Medical Decision Making Neurosurgery came to evaluate patient, plan is for patient to obtain infectious disease consultation and wound care consultation, will try to conservatively manage without OR involvement however may end up having to go to the OR therefore perioperative lab work was additionally obtained, was given 2 additional doses of morphine while in the emergency department. Patient will be admitted to neurosurgery Final diagnoses: [M54.50] Acute bilateral low back pain without sciatica [T81.42XA] Infection of deep incisional surgical site after procedure, initial encounter DISPOSITION Disposition: Admit to neurosurgery Patient condition is stable Alana Lindquist APRN-WAIVER ANALYST Associated attestation - Gene Oleary MD - 11/15/2023 2:43 PM EDT This patient was seen by the KENNEDI. I have seen and examined the patient, agree with the workup, evaluation, management and diagnosis. I reviewed and edited the above documentation where necessary. Terence Oleary MD ED Attending [facility] Work Phone: [phone]) 574-215708-25-2024 Plan of care note* Care Plan - Elke Paiz RN - 11/17/2023 6:45 AM EDT The patient's goals for the shift include Decrease Pain The clinical goals for the shift include pt pain will be controlled with ordered pain medications See MAR for medication administration Problem: Pain Goal: Turns in bed with improved pain control throughout the shift Outcome: Progressing Goal: Walks with improved pain control throughout the shift Outcome: Progressing Goal: Performs ADL's with improved pain control throughout shift Outcome: Progressing Goal: Free from opioid side effects throughout the shift Outcome: Progressing Problem: Pain [...] monitored and maintained or improved Outcome: Progressing [facility]23-[facility]24 Note* Significant Event - Theodora Pedroza MD - 11/15/2023 4:47 PM EDT Significant event note # Wound dehiscence with cellulitis c/f epidural abscess A 48 yo female with recent wound infection s/p removal of spinal cord stimulator/lead in 09/2023 treated with a total 3 weeks of antibiotics developed wound dehiscence with cellulitis c/f epidural abscess. Clinically stable give no neurologic deficits. CT showed c/f epidural abscess on 11/12. MRI is pending. There seems no growth of organisms from recent wound infection in September 2023. Empirical treatment was meropenem/vancomycin and transition to PO doxycyline/augmentin for 3 weeks. Patient was still on pain, and was started on bactrim/Keflex since 10/31. Even under antibiotics treatment, patient developed wound infection. No growth of Pseudomonas aeruginosa from recent culture. Would recommend start IV ceftriaxone and IV vancomycin given clinical scenario and her allergy of penicillin/Keflex. Will await MRI and neurolosurgery plan As for erythema around her neck, could be from some drug reaction including Keflex, but not clear. Will monitor closely. No cross reaction between Keflex and ceftriaxone. As for diarrhea, would be reasonable to check CDI given recent antibiotics exposures. Updates 11/13 MRI showed interval decrease size of fluid collection. No epidural abscess. Patient does not seem to have surgical plan. Collected swab culture. Updates 11/14 No neurosurgical plan. Anticipate switch to oral agents. Still await culture finalized. Recommendations -Continue V ceftriaxone 2g daily and IV vancomycin per pharmacy protocol -Will await swab culture Discussed with Dr. Frederick. Please text me via [employer] chat if you have any questions or concerns regarding this patient. ID will continue to follow up this patient. Theodora Pedroza MD ID fellow PGY5 Team A ID pager [phone] [facility] Work Phone: 1(291) 557-726608-23-2024 Nurse Note* Slime Garcia RN - 11/15/2023 4:24 AM EDT I was unable to complete wound care orders for this patient due to unavailability of product, as wedo not carry most on the unit. The doctor was notified of this matter. [facility]08-22-2024 Hospital Note* Hospital Course - Elke Morin APRN-MARINA - 11/14/2023 11:19 AM EDT Jerad Tracy is a 48 year old female with PMH of chronic bilateral low back pain, neuropathic BLE pain (R>L), LL radiculopathy, HCV, GERD, depression, bipolar disorder, 09/22 s/p perc spinal cord stim placement, L buttock generator placement, p/w wound dehiscence, 10/13 s/p wound washout and removal of lead/generator, p/w pain around incision. 11/13 admitted to Neurosurgery floor for further evaluation and management. ID following for antibiotic therapy. Wound care involved for proper cleansing and dressing changes. 11/15 ID final recs for PO antibiotics (end date 11/25) and no need for follow up with ID. On the day of discharge, the patient was seen and evaluated by the neurosurgery team and deemed suitable for discharge to home. The patient was given detailed discharge instructions and were scheduled to follow up as an outpatient. [facility] Work Phone: 1(780) 546-485008-22-2024 Plan of care note* Care Plan - Jarad Hein RN - 11/14/2023 10:38 AM EDT The patient's goals for the shift include Decrease Pain The clinical goals for the shift include Pt. will have decreased pain by end of shifft Over the shift, the patient did not make progress toward the following goals. Barriers to progression include. Recommendations to address these barriers include. Problem: Pain Goal: Takes deep breaths with [...] Goal: Free from fall injury Outcome: Progressing [facility] Work Phone: 1(911) 231-543308-21-2024 Consult note* Neisha Siddiqui PharmD - 11/13/2023 7:22 PM EDTAssociated Order(s): PHARMACY TO DOSE VANCO Vancomycin Dosing by Pharmacy- INITIAL Jerad Tracy is a 48 y.o. year old female who Pharmacy has been consulted for vancomycin dosing forcellulitis, skin and soft tissue. Based on the patient's indication and renal status this patient will be dosed based on a goal AUC of 400-600. Renal function is currently stable. Visit Vitals BP 104/53 Pulse 93 Temp 36.9 C (98.4 F) (Oral) Resp 18 Lab Results Component Value Date CREATININE 0.84 11/12/2023 CREATININE 0.77 11/09/2023 CREATININE 0.73 11/01/2023 CREATININE 0.74 10/31/2023 Patient weight is as follows: Vitals: 11/13/23 0440 Weight: 113 kg (250 lb) Cultures: No results found for the encounter in last 14 days. No intake/output data recorded. I/O during current shift: No intake/output data recorded. Temp (24hrs), Av.9 C (98.4 F), Min:36.9 C (98.4 F), Max:36.9 C (98.4 F) Assessment/Plan Patient will not be given a loading dose. Will initiate vancomycin maintenance, 1000 mg every 12 hours. This dosing regimen is predicted by InsightRx to result in the following pharmacokinetic parameters: Loading dose: N/A Regimen: 1000 mg IV every 12 hours. Start time: 19:22 on 11/13/2023 Exposure target: AUC24 (range)400-600 mg/L.hr AUC24,ss: 524 mg/L.hr Probability of AUC24 > 400: 70 % Ctrough,ss: 15.4 mg/L Probability of Ctrough,ss > 20: 36 % Probability of nephrotoxicity (Lodise FRANCISCO 2008): 11 % Follow-up level will be ordered on 11/13 at AM labs unless clinically indicated sooner. Will continue to monitor renal function daily while on vancomycin and order serum creatinine at least every 48 hours if not already ordered. Follow for continued vancomycin needs, clinical response, and signs/symptoms of toxicity. Neisha Siddiqui PharmD [facility] Work Phone: 1(240) 569-511108-21-2024 Consult note* Neisha Siddiqui PharmD - 11/13/2023 7:22 PM EDTAssociated Order(s): PHARMACY TO DOSE VANCO Vancomycin Dosing by Pharmacy- INITIAL Jerad Tracy is a 48 y.o. year old female who Pharmacy has been consulted for vancomycin dosing forcellulitis, skin and soft tissue. Based on the patient's indication and renal status this patient will be dosed based on a goal AUC of 400-600. Renal function is currently stable. Visit Vitals BP 104/53 Pulse 93 Temp 36.9 C (98.4 F) (Oral) Resp 18 Lab Results Component Value Date CREATININE 0.84 11/12/2023 CREATININE 0.77 11/09/2023 CREATININE 0.73 11/01/2023 CREATININE 0.74 10/31/2023 Patient weight is as follows: Vitals: 11/13/23 0440 Weight: 113 kg (250 lb) Cultures: No results found for the encounter in last 14 days. No intake/output data recorded. I/O during current shift: No intake/output data recorded. Temp (24hrs), Av.9 C (98.4 F), Min:36.9 C (98.4 F), Max:36.9 C (98.4 F) Assessment/Plan Patient will not be given a loading dose. Will initiate vancomycin maintenance, 1000 mg every 12 hours. This dosing regimen is predicted by [employer] to result in the following pharmacokinetic parameters: Loading dose: N/A Regimen: 1000 mg IV every 12 hours. Start time: 19:22 on 11/13/2023 Exposure target: AUC24 (range)400-600 mg/L.hr AUC24,ss: 524 mg/L.hr Probability of AUC24 > 400: 70 % Ctrough,ss: 15.4 mg/L Probability of Ctrough,ss > 20: 36 % Probability of nephrotoxicity (Lodise FRANCISCO 2008): 11 % Follow-up level will be ordered on 11/13 at AM labs unless clinically indicated sooner. Will continue to monitor renal function daily while on vancomycin and order serum creatinine at least every 48 hours if not already ordered. Follow for continued vancomycin needs, clinical response, and signs/symptoms of toxicity. Neisha Siddiqui PharmD * Cierra Lala RN - 11/13/2023 3:59 PM EDTAssociated Order(s): WOUND OSTOMY NURSING CONSULT Images from the original note were not included. Wound Care Consult Visit Date: 11/13/2023 Patient Name: Karina Tracy Date of : 1975 Reason for Consult: back incision Wound History: Karina is a 48 y.o. female with h/o chronic bilateral low back pain, neuropathic BLE pain (R>L), LL radiculopathy, HCV, GERD, depression, bipolar disorder, 09/22 s/p perc spinal cord stim placement, L buttock generator placement, p/w wound dehiscence, 10/12 s/p PICC, 10/13 s/p wound washout and removal of lead/generator, p/w pain around incision Wound Assessment: Wound 10/11/23 Skin Tear Pretibial Right (Active) Wound 10/14/23 Incision Back Left;Lower (Active) Wound 10/14/23 Incision Back Medial;Lower (Active) Wound Image 11/13/23 1556 Site Assessment [place];Yellow;Dehisced 11/13/23 1556 Wound Length (cm) 3 cm 11/13/23 1556 Wound Width (cm) 0.4 cm 11/13/23 1556 Wound Surface Area (cm^2) 1.2 cm^2 11/13/23 1556 Wound Depth (cm) 0.3 cm 11/13/23 1556 Wound Volume (cm^3) 0.36 cm^3 11/13/23 1556 State of Healing Slough 11/13/23 1556 Closure None 11/13/23 155 Drainage Description Yellow 11/13/23 1556 Drainage Amount Scant 11/13/23 1556 Dressing Alginate;Silver dressing;Silicone border dressing;Wound gel 11/13/23 1556 Dressing Changed New 11/13/23 1556 Dressing Status Clean;Dry 11/13/23 1556 Wound 11/01/23 Ischium (Active) Wound Team Summary Assessment: Pt seen resting on ED stretcher. Able to sit EOB for wound assessment. Medial lower back incision measures 7cm long with central area of superficial dehiscence measuring 3cm x 0.4cm x 0.3cm. No drainage, odor, purulence, fluctuance, induration or excessive warmth or erythema at time of assessment. Wound base comprised largely of soft, yellow fibrin. No tracking, tunneling or undermining noted. Cleaned, prepped and redressed using Medihoney wound gel, strip of Melgisorb Ag, then small Mepilex foam to secure. Recs below and d/w NeuroSx resident. Wound Team Recs: DAILY, cleanse medial lower back incision with Vashe wound cleanser (order from [email or web address] via [email or web address] #[id number] if not stocked on unit; [facility]),then redress using nickel-thick layer of Santyl (collagenase) ointment, followed by strip of Aquacel Ag and small Mepilex foam to secure. Provider, please review recs above and sign saved wound care orders accordingly. Cierra Lala RN, ON 11/13/2023 3:59 PM * Theodora Pedroza MD - 11/13/2023 3:12 PM EDTAssociated Order(s): Inpatient consult to Infectious Diseases Inpatient consult to Infectious Diseases Consult performed by: Theodora Pedroza MD Consult ordered by: Cristobal Jessica MD Primary MD: No Assigned PCP Generic ProviderMD Reason For Consult Wound dehiscence History Of Present Illness Jerad Collins is a 48 y.o. female with h/o chronic bilateral low back pain s/p perc spinal cord stim placement 09/22 c/b wound dehiscence s/p wound washout and removal of lead/generator 10/13 presented to the ED on 11/11 for concerns of wound dehiscence. From the chart review, patient underwent a spinal stimulator on 09/22, and s/p PICC 10/12 (removed on 10/17), wound washout and removal of lead/generator 10/13 due to an infection at the site (OR culture was negative). Patient was initially on meropenem and vancomycin, and placed on 3 weeks of doxy and augmentin at discharge. Patient returned to [facility] ED on 10/29 with pain at incision site even after the antibiotics. MRI with underlying fluid collection. Low concern for wound infection as previous cultures with no growth and already s/p antibiotic course at that point. No further operative intervention pursued and patient discharged home with 2 week course of PO bactrim and Keflex. However, patient noticed worsening pain surrounding the incision site, greenish discharge, and fevers after off antibiotics. On interview, patient developed fever and worsening pain with drainage from the site since 11/09. Has been taking PO bactrim and Keflex. Denies weakness/numbness in legs or difficulty urinating/bowel movements. Has diarrhea with decreased appetite since 11/09. Past Medical History She has a past medical history of Anxiety, Arthritis, Bipolar disorder (Multi), Chronic pain disorder, Depression, HCV (hepatitis C virus) (2013), Herniated lumbar intervertebral disc, Liver disease,Neuropathic pain, Obesity, and Vision loss. Surgical History She has a past surgical history that includes Cholecystectomy; Hysterectomy; Tonsillectomy; Myringotomy w/ tubes (Bilateral); Dental surgery (Bilateral); Bunionectomy (Bilateral); Colonoscopy; Adenoidectomy; Spinal cord stimulator removal (10/14/2023); Spinal cord stimulator implant (09/23/2023); and Spinal cord stimulator trial w/ laminotomy (08/21/2023). Allergy Penicillin (remote history) Keflex (looks tolerable with a couple of days, but her skin reaction could be from Keflex) Objective Range of Vitals (last 24 hours) Heart Rate: [74-93] Temperature: [36.9 C (98.4 F)] Respirations: [16-97] BP: (97-161)/(54-109) Height: [160 cm (5' 3 )] Weight: [113 kg (250 lb)] Pulse Ox: [95 %-99 %] Daily Weight 11/13/23 : 113 kg (250 lb) Body mass index is 44.29 kg/m . Physical Exam General: alert, able to answer questions HEENT: no conjunctival injection. anicteric. CVS: RRR. Normal S1 and S2. No m/r/g. RESP: ctab no w/r/r, no increased wob Abd: Soft and lax. ND. Ext: No swelling of the LE b/l. Neuro: Answers questions appropriately. Integumentary: Redness without swelling or tenderness around her neck Mild erythema surrounding wound dehiscence on the prior surgical site with mild purulent drainage Rheumatologic: No joint swelling or edema Relevant Results Labs Results from last 72 hours Lab Units 11/12/23 1631 WBC AUTO x10*3/uL 11.5* HEMOGLOBIN g/dL 14.9 HEMATOCRIT % 42.2 PLATELETS AUTO x10*3/uL 366 NEUTROS PCT AUTO % 70.5 LYMPHS PCT AUTO % 22.2 MONOS PCT AUTO % 6.1 EOS PCT AUTO % 0.7 Results from last 72 hours Lab Units 11/12/23 1631 SODIUM mmol/L 138 POTASSIUM mmol/L 3.6 CHLORIDE mmol/L 103 CO2 mmol/L 24 BUN mg/dL 12 CREATININE mg/dL 0.84 GLUCOSE mg/dL 94 CALCIUM mg/dL 9.1 ANION GAP mmol/L 15 EGFR mL/min/1.73m*2 87 Results from last 72 hours Lab Units 11/12/23 1631 ALK PHOS U/L 86 BILIRUBIN TOTAL mg/dL 0.5 PROTEIN TOTAL g/dL 8.1 ALT U/L 19 AST U/L 22 ALBUMIN g/dL 4.2 Estimated Creatinine Clearance: 101.2 mL/min (by C-G formula based on SCr of 0.84 mg/dL). C-Reactive Protein Date Value Ref Range Status 11/12/2023 0.79 <1.00 mg/dL Final 11/09/2023 1.06 (H) <1.00 mg/dL Final 11/01/2023 0.43 <1.00 mg/dL Final Sedimentation Rate Date Value Ref Range Status 11/12/2023 27 (H) 0 - 20 mm/h Final 11/09/2023 34 (H) 0 - 20 mm/h Final 11/01/2023 44 (H) 0 - 20 mm/h Final Imaging IMPRESSION: MRI spine 10/30 1. 3.3 cm fluid collection within the [...] root as well as moderate canal stenosis. IMPRESSION: CT lumber spine 11/12 1. Again seen is the edema in [...] this more suspicious for an epidural abscess. Microbiology 10/30 Blood neg 11/05 MRSA nare neg 11/11 Blood Antimicrobial agents ?-late September 2023 Meropenem/vancomycin 10/18-early October PO Doxy/Augmentin 10/31-11/12 PO Bactrim/Keflex Assessment/Plan # Wound dehiscence with cellulitis c/f epidural abscess A 48 yo female with recent wound infection s/p removal of spinal cord stimulator/lead in 09/2023 treated with a total 3 weeks of antibiotics developed wound dehiscence with cellulitis c/f epidural abscess. Clinically stable give no neurologic deficits. CT showed c/f epidural abscess on 11/12. MRI is pending. There seems no growth of organisms from recent wound infection in September 2023. Empirical treatment was meropenem/vancomycin and transition to PO doxycyline/augmentin for 3 weeks. Patient was still on pain, and was started on bactrim/Keflex since 10/31. Even under antibiotics treatment, patient developed wound infection. No growth of Pseudomonas aeruginosa from recent culture. Would recommend start IV ceftriaxone and IV vancomycin given clinical scenario and her allergy of penicillin/Keflex. Will await MRI and neurolosurgery plan As for erythema around her neck, could be from some drug reaction including Keflex, but not clear. Will monitor closely. No cross reaction between Keflex and ceftriaxone. As for diarrhea, would be reasonable to check CDI given recent antibiotics exposures. Recommendations -CD PCR/toxin test -Start IV ceftriaxone 2g daily and IV vancomycin per pharmacy protocol -Will await MRI and neurosurgery plan Discussed with the team and Dr. Choi. Please text me via [employer] chat if you have any questions or concerns regarding this patient. ID will continue to follow up this patient. Theodora Pedroza MD ID fellow PGY5 Team A Pager [phone] Associated attestation - Gurjit Choi MD - 11/13/2023 6:46 PM EDT I saw and evaluated the patient. I personally obtained the medrano and critical portions of the historyand physical exam or was physically present for medrano and critical portions performed by the resident/fellow. I reviewed the resident/fellow's documentation and discussed the patient with the resident/len mccauley. I agree with the resident/fellow's medical decision making as documented in the note. * Aaron Kilpatrick MD - 11/13/2023 9:49 AM EDTAssociated Order(s): Inpatient consult to Neurosurgery Inpatient consult to Neurosurgery Consult performed by: Aaron Kilpatrick MD Consult ordered by: Cristobal Jessica MD Date of Service: 11/13/2023 Attending Provider: Cristobal Jessica MD;Brock Thornton MD Reason for Consultation: Jerad Collins is being seen today for a consult requested by Cristobal Jessica MD;Brock Thornton MD for wound dehiscence. Subjective History of Present Illness: Karina is a 48 y.o. female with h/o chronic bilateral low back pain, neuropathic BLE pain (R>L), LL radiculopathy, HCV, GERD, depression, bipolar disorder, 09/22 s/p perc spinal cord stim placement, L buttock generator placement, p/w wound dehiscence, 10/12 s/p PICC, 10/13 s/p wound washout and removal of lead/generator, p/w pain around incision Patient has been watching wound for about [address] Adams on Saturday, steri strips were placed. She completed a course of bactrim and keflex. She continues to have pain near incision. She has not eaten since Saturday. She had a temp on Saturday which she attributed to a stomach bug, she wasnot drinking or eating but has since improved. She denies fevers since, night sweats, chills, numbness, weakness, tingling. Review of Systems 10 point ROS is obtained and negative except the ones mentioned in the HPI Objective Vitals: Vitals: 11/13/23 0900 BP: 135/56 Pulse: 74 Resp: 18 Temp: SpO2: 96% Exam: Constitutional: No acute distress Resp: breathing comfortably Cardio: well perfused GI: nondistended MSK: full range of motion Neuro: No acute distress, A&Ox3 Cranial Nerves II-XII: PERRL, EOMI, Face symmetric, Facial SILT, Palate/Tongue midline and symmetric, shoulder shrugs symmetric, hearing intact to finger rubs bilaterally Motor: BUE 5/5 BLE 5/5 Sensation: SILT throughout all extremities DTRS: 2+ Throughout, No Hoffmans or Clonus Psych: appropriate Skin: lumbar incision with 3cm superficial dehiscence, granulation tissue, erythema, tender to palpation Medical History Past Medical History: Diagnosis Date Anxiety Arthritis Bipolar disorder (Multi) Chronic pain disorder Depression HCV (hepatitis C [...] Percutaneous Thoracic Spinal Cord Stimulator Trial TONSILLECTOMY Medications Current Outpatient Medications Medication Instructions acetaminophen (TYLENOL) 650 mg, oral, Every 6 hours PRN chlorhexidine (Peridex) 0.12 % solution 15 ml swish and spit for 30 seconds night prior to surgery and morning of surgery FLUoxetine (PROZAC) 60 mg, oral, Daily hydrOXYzine HCL (ATARAX) 25 mg, oral, 3 times daily ketoconazole (NIZOral) 2 % cream 1 Application, Topical, 2 times daily naloxone (NARCAN) 4 mg, nasal, As needed, May repeat every 2-3 minutes if needed, alternating nostrils, until medical assistance becomes available. omeprazole (PRILOSEC) 20 mg, oral, 2 times daily before meals, Do not crush or chew. oxyCODONE (ROXICODONE) 5 mg, oral, Every 6 hours PRN Diagnostic Results: Lab Results Component Value Date WBC 11.5 (H) 11/12/2023 HGB 14.9 11/12/2023 HCT 42.2 11/12/2023 MCV 88 11/12/2023 PLT 366 11/12/2023 Lab Results Component Value Date CREATININE 0.84 11/12/2023 BUN 12 11/12/2023 NA 138 11/12/2023 K 3.6 11/12/2023 CL 103 11/12/2023 CO2 24 11/12/2023 Lab Results Component Value Date INR 1.0 10/13/2023 INR 1.0 10/11/2023 INR 0.9 10/11/2023 PROTIME 10.9 10/13/2023 PROTIME 11.3 10/11/2023 PROTIME 10.4 10/11/2023 === 11/09/23 === CT LUMBAR SPINE W IV CONTRAST - Impression - 1. Fat stranding posterior to the spinous [...] protocol CT is recommended. Signed by Doc Romero MD === 11/08/23 === MR THORACIC SPINE WO CONTRAST - Impression - There is multilevel spondylosis as described above. MACRO: None Signed by: Mora Smith 11/08/2023 9:53 AM Dictation workstation: [id number] Assessment/Plan Assessment: Karina is a 48 y.o. female with h/o chronic bilateral low back pain, neuropathic BLE pain (R>L), LL radiculopathy, HCV, GERD, depression, bipolar disorder, 09/22 s/p perc spinal cord stim placement, L buttock generator placement, p/w wound dehiscence, 10/12 s/p PICC, 10/13 s/p wound washout and removal of lead/generator, p/w pain around incision, 11/12 p/w wound dehiscence and pain, MRI LS 3.3 subcut aneous seroma, CT LS L1-4 fast stranding c/f cellulitis Patient non-toxic afebrile with normal CRP and mild elevation of ESR and imaging findings likely post operative seroma Plan: Evaluation by wound care nurse for possible local wound care ID consult for determination of IV antibiotic regimen given patient has had prior revision a few weeks ago and completed PO antibiotics recently Possible OR for wound exploration and revision if unable to manage with local wound care and ID recs Aaron Kilpatrick MD Plan not finalized until note signed by attending documented in this [facility] Work Phone: 1(600) 864-378208-21-2024 History and physical note* Aaron Kilpatrick MD - 11/13/2023 5:39 PM EDT History Of Present Illness Jerad Collins is a 48 y.o. female with h/o chronic bilateral low back pain, neuropathic BLE pain (R>L), LL radiculopathy, HCV, GERD, depression, bipolar disorder, 09/22 s/p perc spinal cord stim placement, L buttock generator placement, p/w wound dehiscence, 10/12 s/p PICC, 10/13 s/p wound washout and removal of lead/generator, p/w pain around incision Patient has been watching wound for about [address] Adams on Saturday, steri strips were placed. She completed a course of bactrim and keflex. She continues to have pain near incision. She has not eaten since Saturday. She had a temp on Saturday which she attributed to a stomach bug, she wasnot drinking or eating but has since improved. She denies fevers since, night sweats, chills, numbness, weakness, tingling. Past Medical History She has a past medical history of Anxiety, Arthritis, Bipolar disorder (Multi), Chronic pain disorder, Depression, HCV (hepatitis C virus) (2013), Herniated lumbar intervertebral disc, Liver disease,Neuropathic pain, Obesity, and Vision loss. Surgical History [...] smoking about 32 years ago. She has a16.3 pack-year smoking history. She has never used smokeless tobacco. She reports that she does notcurrently use drugs. She reports that she does not drink alcohol. Allergies Penicillins and Nabumetone Medications (Not in a hospital admission) Review of Systems 10 point ROS is obtained and negative except the ones mentioned in the HPI Physical Exam Constitutional: No acute distress Resp: breathing comfortably Cardio: well perfused GI: nondistended MSK: full range of motion Neuro: No acute distress, A&Ox3 Cranial Nerves II-XII: PERRL, EOMI, Face symmetric, Facial SILT, Palate/Tongue midline and symmetric, shoulder shrugs symmetric, hearing intact to finger rubs bilaterally Motor: BUE 5/5 BLE 5/5 Sensation: SILT throughout all extremities DTRS: 2+ Throughout, No Hoffmans or Clonus Psych: appropriate Skin: lumbar incision with 3cm superficial dehiscence, granulation tissue, erythema, tender to palpation Last Recorded Vitals Blood pressure 176/87, pulse 93, temperature 36.9 C (98.4 F), temperature source Oral, resp. rate 18, height 1.6 m (5' 3 ), weight 113 kg (250 lb), SpO2 98%. Relevant Results CT lumbar spine wo IV contrast 11/13/2023 Addendum 11/13/2023 3:16 PM This finding was discussed with and acknowledged by Dr Alana Lindquist on 11/13/2023 at 2:54 PM Signed by Michele Berry MD Narrative STUDY: CT Lumbar Spine without IV Contrast; 11/13/2023 1:45 PM INDICATION: Re-assess surgical site. COMPARISON: CT lumbar 11/09/2023. MR lumbar 10/31/2023. ACCESSION NUMBER(S): [id number] ORDERING CLINICIAN: ALANA LINDQUIST TECHNIQUE: CT of [...] unchanged. The visualized abdomen is otherwise unremarkable. Impression 1. Again seen is the edema in [...] further evaluation. Signed by Michele Berry MD Assessment/Plan Assessment & Plan Wound dehiscence Acute bilateral low back pain without sciatica Karina is a 48 y.o. female with h/o chronic bilateral low back pain, neuropathic BLE pain (R>L), LL radiculopathy, HCV, GERD, depression, bipolar disorder, 09/22 s/p perc spinal cord stim placement, L buttock generator placement, p/w wound dehiscence, 10/12 s/p PICC, 10/13 s/p wound washout and removal of lead/generator, p/w pain around incision, 11/12 p/w wound dehiscence and pain, MRI LS 3.3 subcut aneous seroma, CT LS L1-4 fast stranding c/f cellulitis Admit to floor under neurosurgery MRI lumbar spine w/wo contrast Wound care consult Daily dressing changes ID consult for antibiotic management Hold off on antibiotics at this time Home meds SCDs, SQH Aaron Kilpatrick MD Note authored by resident on neurosurgery team, with all questions [place] [phone] [facility] Work Phone: [phone]) 850-578208-21-2024 History and physical note* Aaron Kilpatrick MD - 11/13/2023 5:39 PM EDT History Of Present Illness Jerad Collins is a 48 y.o. female with h/o chronic bilateral low back pain, neuropathic BLE pain (R>L), LL radiculopathy, HCV, GERD, depression, bipolar disorder, 09/22 s/p perc spinal cord stim placement, L buttock generator placement, p/w wound dehiscence, 10/12 s/p PICC, 10/13 s/p wound washout and removal of lead/generator, p/w pain around incision Patient has been watching wound for about [address] Adams on Saturday, steri strips were placed. She completed a course of bactrim and keflex. She continues to have pain near incision. She has not eaten since Saturday. She had a temp on Saturday which she attributed to a stomach bug, she wasnot drinking or eating but has since improved. She denies fevers since, night sweats, chills, numbness, weakness, tingling. Past Medical History She has a past medical history of Anxiety, Arthritis, Bipolar disorder (Multi), Chronic pain disorder, Depression, HCV (hepatitis C virus) (2013), Herniated lumbar intervertebral disc, Liver disease,Neuropathic pain, Obesity, and Vision loss. Surgical History [...] smoking about 32 years ago. She has a16.3 pack-year smoking history. She has never used smokeless tobacco. She reports that she does notcurrently use drugs. She reports that she does not drink alcohol. Allergies Penicillins and Nabumetone Medications (Not in a hospital admission) Review of Systems 10 point ROS is obtained and negative except the ones mentioned in the HPI Physical Exam Constitutional: No acute distress Resp: breathing comfortably Cardio: well perfused GI: nondistended MSK: full range of motion Neuro: No acute distress, A&Ox3 Cranial Nerves II-XII: PERRL, EOMI, Face symmetric, Facial SILT, Palate/Tongue midline and symmetric, shoulder shrugs symmetric, hearing intact to finger rubs bilaterally Motor: BUE 5/5 BLE 5/5 Sensation: SILT throughout all extremities DTRS: 2+ Throughout, No Hoffmans or Clonus Psych: appropriate Skin: lumbar incision with 3cm superficial dehiscence, granulation tissue, erythema, tender to palpation Last Recorded Vitals Blood pressure 176/87, pulse 93, temperature 36.9 C (98.4 F), temperature source Oral, resp. rate 18, height 1.6 m (5' 3 ), weight 113 kg (250 lb), SpO2 98%. Relevant Results CT lumbar spine wo IV contrast 11/13/2023 Addendum 11/13/2023 3:16 PM This finding was discussed with and acknowledged by Dr Alana Lindquist on 11/13/2023 at 2:54 PM Signed by Michele Berry MD Narrative STUDY: CT Lumbar Spine without IV Contrast; 11/13/2023 1:45 PM INDICATION: Re-assess surgical site. COMPARISON: CT lumbar 11/09/2023. MR lumbar 10/31/2023. ACCESSION NUMBER(S): [id number] ORDERING CLINICIAN: ALANA LINDQUIST TECHNIQUE: CT of [...] unchanged. The visualized abdomen is otherwise unremarkable. Impression 1. Again seen is the edema in [...] further evaluation. Signed by Michele Berry MD Assessment/Plan Assessment & Plan Wound dehiscence Acute bilateral low back pain without sciatica Karina is a 48 y.o. female with h/o chronic bilateral low back pain, neuropathic BLE pain (R>L), LL radiculopathy, HCV, GERD, depression, bipolar disorder, 09/22 s/p perc spinal cord stim placement, L buttock generator placement, p/w wound dehiscence, 10/12 s/p PICC, 10/13 s/p wound washout and removal of lead/generator, p/w pain around incision, 11/12 p/w wound dehiscence and pain, MRI LS 3.3 subcut aneous seroma, CT LS L1-4 fast stranding c/f cellulitis Admit to floor under neurosurgery MRI lumbar spine w/wo contrast Wound care consult Daily dressing changes ID consult for antibiotic management Hold off on antibiotics at this time Home meds SCDs, SQH Aaron Kilpatrick MD Note authored by resident on neurosurgery team, with all questions [place] [phone] documented in this [facility] Work Phone: [phone]) 388-164508-21-2024 Consult note* Cierra Lala RN - 11/13/2023 3:59 PM EDTAssociated Order(s): WOUND OSTOMY NURSING CONSULT Images from the original note were not included. Wound Care Consult Visit Date: 11/13/2023 Patient Name: Karina Tracy Date of : 1975 Reason for Consult: back incision Wound History: Karina is a 48 y.o. female with h/o chronic bilateral low back pain, neuropathic BLE pain (R>L), LL radiculopathy, HCV, GERD, depression, bipolar disorder, 09/22 s/p perc spinal cord stim placement, L buttock generator placement, p/w wound dehiscence, 10/12 s/p PICC, 10/13 s/p wound washout and removal of lead/generator, p/w pain around incision Wound Assessment: Wound 10/11/23 Skin Tear Pretibial Right (Active) Wound 10/14/23 Incision Back Left;Lower (Active) Wound 10/14/23 Incision Back Medial;Lower (Active) Wound Image 11/13/23 1556 Site Assessment [place];Yellow;Dehisced 11/13/23 1556 Wound Length (cm) 3 cm 11/13/23 1556 Wound Width (cm) 0.4 cm 11/13/23 1556 Wound Surface Area (cm^2) 1.2 cm^2 11/13/23 1556 Wound Depth (cm) 0.3 cm 11/13/23 1556 Wound Volume (cm^3) 0.36 cm^3 11/13/23 1556 State of Healing Slough 11/13/23 1556 Closure None 11/13/23 155 Drainage Description Yellow 11/13/23 155 Drainage Amount Scant 11/13/23 155 Dressing Alginate;Silver dressing;Silicone border dressing;Wound gel 11/13/23 1556 Dressing Changed New 11/13/23 155 Dressing Status Clean;Dry 11/13/23 1556 Wound 11/01/23 Ischium (Active) Wound Team Summary Assessment: Pt seen resting on ED stretcher. Able to sit EOB for wound assessment. Medial lower back incision measures 7cm long with central area of superficial dehiscence measuring 3cm x 0.4cm x 0.3cm. No drainage, odor, purulence, fluctuance, induration or excessive warmth or erythema at time of assessment. Wound base comprised largely of soft, yellow fibrin. No tracking, tunneling or undermining noted. Cleaned, prepped and redressed using Medihoney wound gel, strip of Melgisorb Ag, then small Mepilex foam to secure. Recs below and d/w NeuroSx resident. Wound Team Recs: DAILY, cleanse medial lower back incision with Vashe wound cleanser (order from [email or web address] via [email or web address] #[id number] if not stocked on unit; available OTC at [employer] and [employer] for outpatient),then redress using nickel-thick layer of Santyl (collagenase) ointment, followed by strip of Aquacel Ag and small Mepilex foam to secure. Provider, please review recs above and sign saved wound care orders accordingly. Cierra Lala RN, ON 11/13/2023 3:59 PM [facility]08-21-2024 Consult note* Theodora Pedroza MD - 11/13/2023 3:12 PM EDTAssociated Order(s): Inpatient consult to Infectious Diseases Inpatient consult to Infectious Diseases Consult performed by: Theodora Pedroza MD Consult ordered by: Cristobal Jessica MD Primary MD: No Assigned PCP Generic ProviderMD Reason For Consult Wound dehiscence History Of Present Illness Jerad Collins is a 48 y.o. female with h/o chronic bilateral low back pain s/p perc spinal cord stim placement 09/22 c/b wound dehiscence s/p wound washout and removal of lead/generator 10/13 presented to the ED on 11/11 for concerns of wound dehiscence. From the chart review, patient underwent a spinal stimulator on 09/22, and s/p PICC 10/12 (removed on 10/17), wound washout and removal of lead/generator 10/13 due to an infection at the site (OR culture was negative). Patient was initially on meropenem and vancomycin, and placed on 3 weeks of doxy and augmentin at discharge. Patient returned to [facility] ED on 10/29 with pain at incision site even after the antibiotics. MRI with underlying fluid collection. Low concern for wound infection as previous cultures with no growth and already s/p antibiotic course at that point. No further operative intervention pursued and patient discharged home with 2 week course of PO bactrim and Keflex. However, patient noticed worsening pain surrounding the incision site, greenish discharge, and fevers after off antibiotics. On interview, patient developed fever and worsening pain with drainage from the site since 11/09. Has been taking PO bactrim and Keflex. Denies weakness/numbness in legs or difficulty urinating/bowel movements. Has diarrhea with decreased appetite since 11/09. Past Medical History She has a past medical history of Anxiety, Arthritis, Bipolar disorder (Multi), Chronic pain disorder, Depression, HCV (hepatitis C virus) (2013), Herniated lumbar intervertebral disc, Liver disease,Neuropathic pain, Obesity, and Vision loss. Surgical History She has a past surgical history that includes Cholecystectomy; Hysterectomy; Tonsillectomy; Myringotomy w/ tubes (Bilateral); Dental surgery (Bilateral); Bunionectomy (Bilateral); Colonoscopy; Adenoidectomy; Spinal cord stimulator removal (10/14/2023); Spinal cord stimulator implant (09/23/2023); and Spinal cord stimulator trial w/ laminotomy (08/21/2023). Allergy Penicillin (remote history) Keflex (looks tolerable with a couple of days, but her skin reaction could be from Keflex) Objective Range of Vitals (last 24 hours) Heart Rate: [74-93] Temperature: [36.9 C (98.4 F)] Respirations: [16-97] BP: (97-161)/(54-109) Height: [160 cm (5' 3 )] Weight: [113 kg (250 lb)] Pulse Ox: [95 %-99 %] Daily Weight 11/13/23 : 113 kg (250 lb) Body mass index is 44.29 kg/m . Physical Exam General: alert, able to answer questions HEENT: no conjunctival injection. anicteric. CVS: RRR. Normal S1 and S2. No m/r/g. RESP: ctab no w/r/r, no increased wob Abd: Soft and lax. ND. Ext: No swelling of the LE b/l. Neuro: Answers questions appropriately. Integumentary: Redness without swelling or tenderness around her neck Mild erythema surrounding wound dehiscence on the prior surgical site with mild purulent drainage Rheumatologic: No joint swelling or edema Relevant Results Labs Results from last 72 hours Lab Units 11/12/23 1631 WBC AUTO x10*3/uL 11.5* HEMOGLOBIN g/dL 14.9 HEMATOCRIT % 42.2 PLATELETS AUTO x10*3/uL 366 NEUTROS PCT AUTO % 70.5 LYMPHS PCT AUTO % 22.2 MONOS PCT AUTO % 6.1 EOS PCT AUTO % 0.7 Results from last 72 hours Lab Units 11/12/23 1631 SODIUM mmol/L 138 POTASSIUM mmol/L 3.6 CHLORIDE mmol/L 103 CO2 mmol/L 24 BUN mg/dL 12 CREATININE mg/dL 0.84 GLUCOSE mg/dL 94 CALCIUM mg/dL 9.1 ANION GAP mmol/L 15 EGFR mL/min/1.73m*2 87 Results from last 72 hours Lab Units 11/12/23 1631 ALK PHOS U/L 86 BILIRUBIN TOTAL mg/dL 0.5 PROTEIN TOTAL g/dL 8.1 ALT U/L 19 AST U/L 22 ALBUMIN g/dL 4.2 Estimated Creatinine Clearance: 101.2 mL/min (by C-G formula based on SCr of 0.84 mg/dL). C-Reactive Protein Date Value Ref Range Status 11/12/2023 0.79 <1.00 mg/dL Final 11/09/2023 1.06 (H) <1.00 mg/dL Final 11/01/2023 0.43 <1.00 mg/dL Final Sedimentation Rate Date Value Ref Range Status 11/12/2023 27 (H) 0 - 20 mm/h Final 11/09/2023 34 (H) 0 - 20 mm/h Final 11/01/2023 44 (H) 0 - 20 mm/h Final Imaging IMPRESSION: MRI spine 10/30 1. 3.3 cm fluid collection within the [...] root as well as moderate canal stenosis. IMPRESSION: CT lumber spine 11/12 1. Again seen is the edema in [...] this more suspicious for an epidural abscess. Microbiology 10/30 Blood neg 11/05 MRSA nare neg 11/11 Blood Antimicrobial agents ?-late September 2023 Meropenem/vancomycin 10/18-october PO Doxy/Augmentin 10/31-11/12 PO Bactrim/Keflex Assessment/Plan # Wound dehiscence with cellulitis c/f epidural abscess A 48 yo female with recent wound infection s/p removal of spinal cord stimulator/lead in 09/2023 treated with a total 3 weeks of antibiotics developed wound dehiscence with cellulitis c/f epidural abscess. Clinically stable give no neurologic deficits. CT showed c/f epidural abscess on 11/12. MRI is pending. There seems no growth of organisms from recent wound infection in September 2023. Empirical treatment was meropenem/vancomycin and transition to PO doxycyline/augmentin for 3 weeks. Patient was still on pain, and was started on bactrim/Keflex since 10/31. Even under antibiotics treatment, patient developed wound infection. No growth of Pseudomonas aeruginosa from recent culture. Would recommend start IV ceftriaxone and IV vancomycin given clinical scenario and her allergy of penicillin/Keflex. Will await MRI and neurolosurgery plan As for erythema around her neck, could be from some drug reaction including Keflex, but not clear. Will monitor closely. No cross reaction between Keflex and ceftriaxone. As for diarrhea, would be reasonable to check CDI given recent antibiotics exposures. Recommendations -CD PCR/toxin test -Start IV ceftriaxone 2g daily and IV vancomycin per pharmacy protocol -Will await MRI and neurosurgery plan Discussed with the team and Dr. Choi. Please text me via Epic chat if you have any questions or concerns regarding this patient. ID will continue to follow up this patient. Theodora Pedroza MD ID fellow PGY5 Team A Pager [phone] Associated attestation - Gurjit Choi MD - 11/13/2023 6:46 PM EDT I saw and evaluated the patient. I personally obtained the medrano and critical portions of the historyand physical exam or was physically present for medrano and critical portions performed by the resident/fellow. I reviewed the resident/fellow's documentation and discussed the patient with the resident/len mccauley. I agree with the resident/fellow's medical decision making as documented in the note. [facility] Work Phone: 1(523) 605-527308-21-2024 Consult note* Aaron Kilpatrick MD - 11/13/2023 9:49 AM EDTAssociated Order(s): Inpatient consult to Neurosurgery Inpatient consult to Neurosurgery Consult performed by: Aaron Kilpatrick MD Consult ordered by: Cristobal Jessica MD Date of Service: 11/13/2023 Attending Provider: Cristobal Jessica MD;Brock Thornton MD Reason for Consultation: Jerad Collins is being seen today for a consult requested by Cristobal Jessica MD;Brock Thornton MD for wound dehiscence. Subjective History of Present Illness: Karina is a 48 y.o. female with h/o chronic bilateral low back pain, neuropathic BLE pain (R>L), LL radiculopathy, HCV, GERD, depression, bipolar disorder, 09/22 s/p perc spinal cord stim placement, L buttock generator placement, p/w wound dehiscence, 10/12 s/p PICC, 10/13 s/p wound washout and removal of lead/generator, p/w pain around incision Patient has been watching wound for about [address] Adams on Saturday, steri strips were placed. She completed a course of bactrim and keflex. She continues to have pain near incision. She has not eaten since Saturday. She had a temp on Saturday which she attributed to a stomach bug, she wasnot drinking or eating but has since improved. She denies fevers since, night sweats, chills, numbness, weakness, tingling. Review of Systems 10 point ROS is obtained and negative except the ones mentioned in the HPI Objective Vitals: Vitals: 11/13/23 0900 BP: 135/56 Pulse: 74 Resp: 18 Temp: SpO2: 96% Exam: Constitutional: No acute distress Resp: breathing comfortably Cardio: well perfused GI: nondistended MSK: full range of motion Neuro: No acute distress, A&Ox3 Cranial Nerves II-XII: PERRL, EOMI, Face symmetric, Facial SILT, Palate/Tongue midline and symmetric, shoulder shrugs symmetric, hearing intact to finger rubs bilaterally Motor: BUE 5/5 BLE 5/5 Sensation: SILT throughout all extremities DTRS: 2+ Throughout, No Hoffmans or Clonus Psych: appropriate Skin: lumbar incision with 3cm superficial dehiscence, granulation tissue, erythema, tender to palpation Medical History Past Medical History: Diagnosis Date Anxiety Arthritis Bipolar disorder (Multi) Chronic pain disorder Depression HCV (hepatitis C [...] Percutaneous Thoracic Spinal Cord Stimulator Trial TONSILLECTOMY Medications Current Outpatient Medications Medication Instructions acetaminophen (TYLENOL) 650 mg, oral, Every 6 hours PRN chlorhexidine (Peridex) 0.12 % solution 15 ml swish and spit for 30 seconds night prior to surgery and morning of surgery FLUoxetine (PROZAC) 60 mg, oral, Daily hydrOXYzine HCL (ATARAX) 25 mg, oral, 3 times daily ketoconazole (NIZOral) 2 % cream 1 Application, Topical, 2 times daily naloxone (NARCAN) 4 mg, nasal, As needed, May repeat every 2-3 minutes if needed, alternating nostrils, until medical assistance becomes available. omeprazole (PRILOSEC) 20 mg, oral, 2 times daily before meals, Do not crush or chew. oxyCODONE (ROXICODONE) 5 mg, oral, Every 6 hours PRN Diagnostic Results: Lab Results Component Value Date WBC 11.5 (H) 11/12/2023 HGB 14.9 11/12/2023 HCT 42.2 11/12/2023 MCV 88 11/12/2023 PLT 366 11/12/2023 Lab Results Component Value Date CREATININE 0.84 11/12/2023 BUN 12 11/12/2023 NA 138 11/12/2023 K 3.6 11/12/2023 CL 103 11/12/2023 CO2 24 11/12/2023 Lab Results Component Value Date INR 1.0 10/13/2023 INR 1.0 10/11/2023 INR 0.9 10/11/2023 PROTIME 10.9 10/13/2023 PROTIME 11.3 10/11/2023 PROTIME 10.4 10/11/2023 === 11/09/23 === CT LUMBAR SPINE W IV CONTRAST - Impression - 1. Fat stranding posterior to the spinous [...] protocol CT is recommended. Signed by Doc Romero MD === 11/08/23 === MR THORACIC SPINE WO CONTRAST - Impression - There is multilevel spondylosis as described above. MACRO: None Signed by: Mora Smith 11/08/2023 9:53 AM Dictation workstation: [id number] Assessment/Plan Assessment: Karina is a 48 y.o. female with h/o chronic bilateral low back pain, neuropathic BLE pain (R>L), LL radiculopathy, HCV, GERD, depression, bipolar disorder, 09/22 s/p perc spinal cord stim placement, L buttock generator placement, p/w wound dehiscence, 10/12 s/p PICC, 10/13 s/p wound washout and removal of lead/generator, p/w pain around incision, 11/12 p/w wound dehiscence and pain, MRI LS 3.3 subcut aneous seroma, CT LS L1-4 fast stranding c/f cellulitis Patient non-toxic afebrile with normal CRP and mild elevation of ESR and imaging findings likely post operative seroma Plan: Evaluation by wound care nurse for possible local wound care ID consult for determination of IV antibiotic regimen given patient has had prior revision a few weeks ago and completed PO antibiotics recently Possible OR for wound exploration and revision if unable to manage with local wound care and ID recs Aaron Kilpatrick MD Plan not finalized until note signed by attending [facility] Work Phone: 1(565) 333-136908-20-2024 Emergency department Note* Arnoldo Peña DO - 11/12/2023 2:29 PM EDT HPI Chief Complaint Patient presents with Back Pain HPI Patient is a 48-year-old female who presents to the emergency department for concerns of operative infection. Patient states that she had a spinal stimulator that was placed on September [address] Adams. She states that she then had to stimulator removed on October 13 due to an infection at the site. She states that she was placed on 3 weeks of oral antibiotics and has been off antibiotics for the past week. She states that over the past week she has had worsening pain surrounding the incision site, greenish discharge, fevers over the past days reaching 101 F, nausea and vomiting over the past 24 hours, and lack of appetite. Patient denies chest pain, shortness of breath, headache, changes urinationor bowel habits, blood in her stool or urine. Patient states that she has a follow-up appointment scheduled but will not to be seen sooner due to concern for an abscess or infection. Patient denies focal neurological deficits, numbness, saddle anesthesia. Patient History Past Medical History: Diagnosis Date Anxiety Arthritis Bipolar disorder (Multi) Chronic pain disorder Depression HCV (hepatitis C [...] packs/day: 0.50 Average packs/day: 0.5 packs/day for 32.6 years (16.3 ttl pk-yrs) Types: Cigarettes Start date: 1991 Smokeless tobacco: Never Vaping Use Vaping status: Never Used Substance Use Topics Alcohol use: Never Drug use: Not Currently Comment: last use 2016- heroin Physical Exam ED Triage Vitals Temperature Heart Rate Respirations BP 11/12/23 1451 11/12/23 1451 11/12/23 1451 11/12/23 1451 36.2 C (97.2 F) 97 18 (!) 141/94 Pulse Ox Temp Source Heart Rate Source Patient Position 11/12/23 1451 11/13/23 0440 -- -- 97 % Oral BP Location FiO2 (%) -- 11/13/23 0440 21 % Physical Exam Vitals and nursing note reviewed. Constitutional: General: She is not in acute distress. Appearance: She is well-developed. HENT: Head: Normocephalic and atraumatic. Eyes: Conjunctiva/sclera: Conjunctivae normal. Cardiovascular: Rate and Rhythm: Normal rate and regular rhythm. Heart sounds: No murmur heard. Pulmonary: Effort: Pulmonary effort is normal. No respiratory distress. Breath sounds: Normal breath sounds. Abdominal: Palpations: Abdomen is soft. Tenderness: There is no abdominal tenderness. Musculoskeletal: General: No swelling. Cervical back: Neck supple. Comments: Incision site without surrounding erythema but with severe tenderness throughout lower back bilaterally No discharge noted upon exam Patient with no focal neurological deficits Skin: General: Skin is warm and dry. Capillary Refill: Capillary refill takes less than 2 seconds. Neurological: Mental Status: She is alert. Psychiatric: Mood and Affect: Mood normal. ED Course & [facility] ED Course as of 11/15/23 0650 SatNov 13, 2023 0536 Attending summary: 48 y/o F with PMH chronic back pain, neuropathic pain, dep/anx who is presenting for back pain in setting of recent post-op infection from spinal stimulator. Had spinal stimulator placed in lumbar spine on 09/22, removed 3 weeks later due to infection. Was on abx for 3 weeks after that. Reports pain worsening in lower back over last 1 week. Seen at OSH ED and in [facility] ED on 11/[address] L spine withconcern for abscess. OSH ED spoke to neurosurgeon, not concerned for abscess and discharge with f/up and no abx. Pain has worsened. Fever to 101 yesterday, along with chills and anorexia. No leg numbness, weakness. No bowel or bladder changes. Taking oxycodone for pain. Vitals unremarkable. Exam shows a well-appearing female with incision over lower L spine with erythema, warmth and tenderness surrounding superior incision without fluctuance or drainage. Neurovasc intact lower extremities. Her exam is more concerning for cellulitis, however in setting of recent radiologic findings of abscess and systemic infectious symptoms, also concerned for persistent abscess. No evidence of cauda equina or spinal cord compression. Labs with leukocytosis to 11.5, previously normal. Plan for pain control and neurosurg consult. Will defer imaging to them as has had recent CT and MR. I believe pt is infected and at minimum requires discharge with PO antibiotics. [SS] ED Course User Index [SS] Cristobal Jessica MD Diagnoses as of 11/15/23 0650 Acute bilateral low back pain without sciatica Infection of deep incisional surgical site after procedure, initial encounter Medical Decision Making Patient is a 48-year-old female who presents to the emergency department for concerns of operative infection. Patient given morphine and Tylenol for pain control. Patient's vitals were stable and within normal limits. Patient's sed rate was slightly elevated at 27 with a normal C-reactive protein. Patient CMP was within normal limits and patient CBC showed an elevated white blood cell count at 11.5. Neurosurgery was consulted and agreed to see the patient. At time of signout at 0700 hrs., patient care was transferred to Noemy Lindquist CNP with patient in stable condition awaiting neurosurgery recommendations and final disposition Procedure Procedures none Arnoldo Peña, Resident 11/13/23 0729 Arnoldo Peña DO Resident 11/13/23 0737 Arnoldo Peña, Resident 11/15/23 0650 Associated attestation - Cristobal Jessica MD - 11/16/2023 7:28 PM EDT The patient was seen by the resident/fellow. I have personally performed a substantive portion of the encounter. I have seen and examined the patient; agree with the workup, evaluation, MDM, management and diagnosis. The care plan has been discussed with the resident; I have reviewed the resident snote and agree with the documented findings. * Taylor Prado RN - 11/12/2023 2:29 PM EDT Pain stimulator removed 10/14/23. Reports today for wound dehiscence with drainage. Endorses fever, chills, N/V. [facility] Work Phone: 1(538) 930-229208-20-2024 Emergency department Triage note* Taylor Prado RN - 11/12/2023 2:29 PM EDT Pain stimulator removed 10/14/23. Reports today for wound dehiscence with drainage. Endorses fever, chills, N/V. [facility] Work Phone: 1(207) 943-765508-20-2024 Physician Emergency department Note* Arnoldo Peña DO - 11/12/2023 2:29 PM EDT HPI Chief Complaint Patient presents with Back Pain HPI Patient is a 48-year-old female who presents to the emergency department for concerns of operative infection. Patient states that she had a spinal stimulator that was placed on September [address] Adams. She states that she then had to stimulator removed on October 13 due to an infection at the site. She states that she was placed on 3 weeks of oral antibiotics and has been off antibiotics for the past week. She states that over the past week she has had worsening pain surrounding the incision site, greenish discharge, fevers over the past days reaching 101 F, nausea and vomiting over the past 24 hours, and lack of appetite. Patient denies chest pain, shortness of breath, headache, changes urinationor bowel habits, blood in her stool or urine. Patient states that she has a follow-up appointment scheduled but will not to be seen sooner due to concern for an abscess or infection. Patient denies focal neurological deficits, numbness, saddle anesthesia. Patient History Past Medical History: Diagnosis Date Anxiety Arthritis Bipolar disorder (Multi) Chronic pain disorder Depression HCV (hepatitis C [...] packs/day: 0.50 Average packs/day: 0.5 packs/day for 32.6 years (16.3 ttl pk-yrs) Types: Cigarettes Start date: 1991 Smokeless tobacco: Never Vaping Use Vaping status: Never Used Substance Use Topics Alcohol use: Never Drug use: Not Currently Comment: last use 2016- heroin Physical Exam ED Triage Vitals Temperature Heart Rate Respirations BP 11/12/23 1451 11/12/23 1451 11/12/23 1451 11/12/23 1451 36.2 C (97.2 F) 97 18 (!) 141/94 Pulse Ox Temp Source Heart Rate Source Patient Position 11/12/23 1451 11/13/23 0440 -- -- 97 % Oral BP Location FiO2 (%) -- 11/13/23 0440 21 % Physical Exam Vitals and nursing note reviewed. Constitutional: General: She is not in acute distress. Appearance: She is well-developed. HENT: Head: Normocephalic and atraumatic. Eyes: Conjunctiva/sclera: Conjunctivae normal. Cardiovascular: Rate and Rhythm: Normal rate and regular rhythm. Heart sounds: No murmur heard. Pulmonary: Effort: Pulmonary effort is normal. No respiratory distress. Breath sounds: Normal breath sounds. Abdominal: Palpations: Abdomen is soft. Tenderness: There is no abdominal tenderness. Musculoskeletal: General: No swelling. Cervical back: Neck supple. Comments: Incision site without surrounding erythema but with severe tenderness throughout lower back bilaterally No discharge noted upon exam Patient with no focal neurological deficits Skin: General: Skin is warm and dry. Capillary Refill: Capillary refill takes less than 2 seconds. Neurological: Mental Status: She is alert. Psychiatric: Mood and Affect: Mood normal. ED Course & MDM ED Course as of 11/15/23 0650 SatNov 13, 2023 0536 Attending summary: 48 y/o F with PMH chronic back pain, neuropathic pain, dep/anx who is presenting for back pain in setting of recent post-op infection from spinal stimulator. Had spinal stimulator placed in lumbar spine on 09/22, removed 3 weeks later due to infection. Was on abx for 3 weeks after that. Reports pain worsening in lower back over last 1 week. Seen at OSH ED and in [facility] ED on 11/[address] L spine withconcern for abscess. OSH ED spoke to neurosurgeon, not concerned for abscess and discharge with f/up and no abx. Pain has worsened. Fever to 101 yesterday, along with chills and anorexia. No leg numbness, weakness. No bowel or bladder changes. Taking oxycodone for pain. Vitals unremarkable. Exam shows a well-appearing female with incision over lower L spine with erythema, warmth and tenderness surrounding superior incision without fluctuance or drainage. Neurovasc intact lower extremities. Her exam is more concerning for cellulitis, however in setting of recent radiologic findings of abscess and systemic infectious symptoms, also concerned for persistent abscess. No evidence of cauda equina or spinal cord compression. Labs with leukocytosis to 11.5, previously normal. Plan for pain control and neurosurg consult. Will defer imaging to them as has had recent CT and MR. I believe pt is infected and at minimum requires discharge with PO antibiotics. [SS] ED Course User Index [SS] Cristobal Jessica MD Diagnoses as of 11/15/23 0650 Acute bilateral low back pain without sciatica Infection of deep incisional surgical site after procedure, initial encounter Medical Decision Making Patient is a 48-year-old female who presents to the emergency department for concerns of operative infection. Patient given morphine and Tylenol for pain control. Patient's vitals were stable and within normal limits. Patient's sed rate was slightly elevated at 27 with a normal C-reactive protein. Patient CMP was within normal limits and patient CBC showed an elevated white blood cell count at 11.5. Neurosurgery was consulted and agreed to see the patient. At time of signout at 0700 hrs., patient care was transferred to Noemy Lindquist CNP with patient in stable condition awaiting neurosurgery recommendations and final disposition Procedure Procedures none Arnoldo Peña, Resident 11/13/23 0729 Arnoldo Peña, Resident 11/13/23 0737 Arnoldo Peña DO Resident 11/15/23 0650 Associated attestation - Cristobal Jessica MD - 11/16/2023 7:28 PM EDT The patient was seen by the resident/fellow. I have personally performed a substantive portion of the encounter. I have seen and examined the patient; agree with the workup, evaluation, MDM, management and diagnosis. The care plan has been discussed with the resident; I have reviewed the resident snote and agree with the documented findings. [facility] Work Phone: [phone]) 459-118308-17-2024 Hospital Discharge instructions* Discharge Instructions* Clinton De La Cruz MD - 11/09/2023 10:22 PM EDT Please ensure to attend your scheduled follow-up with Dr. Adams on 11/21! * Attachments The following attachments cannot be sent through Care Everywhere. * Managing acute pain at home (Malagasy) * Low Back Pain Discharge Instructions (Malagasy) * Opioids for Short-Term Treatment of Pain ED (Malagasy) documented in [facility] Work Phone: [phone]) 460-515808-17-2024 Emergency department Note* Ana Dumont RN - 11/09/2023 8:25 PM EDT Had surgery in her back October 13 incision is not closing and she is having drainage documented in this [facility]Un[facility] Work Phone: [phone]) 421-448308-17-2024 Emergency department Triage note* Ana Dumont RN - 11/09/2023 8:25 PM EDT Had surgery in her back October 13 incision is not closing and she is having drainage [facility]08-17-2024 Hospital Discharge instructions* Discharge Instructions* Jarocho Delatorre DO - 11/09/2023 4:48 PM EDT The recommendation per Dr. Ortiz was to keep your appointment with your neurosurgeon Dr. Adams in 2weeks. If you have new or worsening symptoms I recommend you seek immediate medical attention at the closest ED. * Attachments The following attachments cannot be sent through Care Everywhere. * Managing pain after surgery (Malagasy) * Wound Dehiscence Discharge Instructions (Malagasy) documented in this [facility]Un[facility] Work Phone: [phone]) 599-737608-16-2024 History of Present illness Narrative* Elke Adams MD - 11/08/2023 1:30 PM EDT [facility] Neurosurgery Diagnosis Jerad Collins was seen today for post-op. Diagnoses and all orders for this visit: Chronic back pain greater than 3 months duration Neuropathic pain Dehiscence of operative wound, subsequent encounter Patient Discussion/Summary 1) Today we assessed your incision, which appears clean without evidence of infection. However, there is still an area that has dehisced. As such, I do not recommend proceeding with our upcoming surgery until this is better healed. 2) We also reviewed your imaging, including your MRI from last week of the lumbar spine, showing swelling and non-specific changes, as well as your thoracic MRI today for presurgical planning, which looks good. 3) I would like to see you again in 2 weeks to reassess your incision, and we will plan to postponeyour thoracic laminotomy for spinal stimulation for another 1-2 months. Provider Impressions 48 y.o. female with chronic b/l LBP, as well as neuropathic LE pain, R>L, primarily in the anterior thighs and occas down to the feet; s/p successful SCS trial w/ [place] on 08/21/23, and subsequentperc thoracic SCS placement w/ [place] on 09/23/23. Postop, pt presented with concerns of infx, and ultimately underwent wound washout and removal of SCS leads and generator on 10/13; intraop, it was unclear if there was a hematoma causing pressure under the incision or infx (wound cultures negative), and patient was discharged on a course of oral abx. During her postop visit on 10/24, we had discussedproceeding with thoracic lami for reimplant of her system with the generator on the opposite side, and I had ordered a thoracic MRI for presurgical planning. In the interim, patient presented to the ED on 10/29 for severe incisional pain; lumbar MRI showed underlying fluid collection; however, there was low concern for infx due to prior negative wound cultures and patient had completed a course of antibiotics. Today, pt presents with superficial wound dehiscence, though wound still looks clean and does not appear infected. However, given that wound is open again and we do not know if there was an infection initially or not, I recommend postponing the upcoming surgery until she is better healed from this. History of Present Illness Chief Complaint: Chief Complaint Patient presents with Post-op HPI: Jerad Tracy is a 48 y.o. female with chronic b/l LBP, as well as neuropathic LE pain, R>L,primarily in the anterior thighs and occas down to the feet; s/p successful SCS trial w/ [employer] on 08/21/23, and subsequent perc thoracic SCS placement w/ [employer] on 09/23/23. Patient presented to [facility] on 10/[facility] with reports of increased pain and redness at lumbar incision, and was discharged home with oral abx and advised to follow up outpatient with me in one week. During her follow up, patient had severe LBP with erythematous and tender lumbar incision concerning for infection. Patient wishedto have the entire system removed, rather than treat with abx and try to salve the device. As such, she underwent wound washout and removal of SCS leads and generator on 10/13; intraop, it was unclearif there was a hematoma causing pressure under the incision or infx (wound cultures negative), and patient was discharged on a course of oral abx. During her postop visit on 10/24, we had discussed proceeding with thoracic lami for reimplant of her system with the generator on the opposite side, and I had ordered a thoracic MRI for presurgical planning. In the interim, patient presented to the ED on 10/29 for severe incisional pain; lumbar MRI showed underlying fluid collection; however, there was low concern for infx due to prior negative wound cultures and patient had completed a course of antib iotics. As such, no further surgical intervention was recommended and patient was discharged home with additional course of oral abx for infection prevention, and advised to follow up in clinic for repeat wound check. Of note, patient is tentatively scheduled for thoracic lami for SCS leads and generator implant on 11/20 with me, and presurgical thoracic MRI was scheduled this morning. ROS: As noted in HPI. Previous History Past Medical History: Diagnosis Date Anxiety Arthritis Bipolar disorder (Multi) Chronic pain disorder Depression HCV (hepatitis C [...] packs/day: 0.50 Average packs/day: 0.5 packs/day for 32.6 years (16.3 ttl pk-yrs) Types: Cigarettes Start date: 1991 [...] taken amoxicillin in the past and tolerated. Nabumetone Nausea/vomiting and Rash Current Outpatient Medications Medication Instructions acetaminophen (TYLENOL) 650 mg, oral, Every 6 hours PRN chlorhexidine (Peridex) 0.12 % solution 15 ml swish and spit for 30 seconds night prior to surgery and morning of surgery FLUoxetine (PROZAC) 60 mg, oral, Daily hydrOXYzine HCL (ATARAX) 25 mg, oral, 3 times daily naloxone (NARCAN) 4 mg, nasal, As needed, May repeat every 2-3 minutes if needed, alternating nostrils, until medical assistance becomes available. omeprazole (PRILOSEC) 20 mg, oral, 2 times daily before meals, Do not crush or chew. oxyCODONE (ROXICODONE) 5 mg, oral, Every 6 hours PRN Vitals BP 146/82 (Patient Position: Sitting) Pulse 87 Temp 35.8 C (96.4 F) (Skin) Resp 20 Ht 1.6 m(5' 3 ) Wt 114 kg (252 lb) BMI 44.64 kg/m Physical Exam Lumbar incision superficially dehisced in middle with underlying granulation tissue; no drainage, erythema, edema, or significant TTP; wound was cleaned today with iodine and dressed with steristrips. Results I personally reviewed the thoracic MRI, showing mild degen disease, but no concerning central canalstenosis precluding surgery. 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 Another treatment may include muscle relaxants. Take nxvl-yqk-itfhdnj and prescription medicines only as told by your health care provider. Ask your health care provider if the medicine prescribed to you: ?Requires you to avoid driving or using machinery. ?Can cause constipation. You may need to take these actions to prevent or treat constipation: ?Drink enough fluid to keep your urine pale yellow. ?Take xpgi-ofw-rszsydw or prescription medicines. ?Eat foods that are [...] online and in-person support groups through: The [place] [employer]: theacpa.org Pain Connection Program: [...] provider. Document Revised: 04/21/2020 Document Reviewed: 12/29/2019 [employer] Patient Education 2022 [employer]. Follow Up Care 11/05/2023 19:45:47 With:Mayra Rosas Address: Arturo [address], [facility] A [address] [address]- Business (1) When:11/08/2023 21:14:06 Comments:Call to schedule a follow-up appointment with your family physician and/or the back surgeon for further management of care. Return to the ED with any worsening symptoms. [facility] 08-13-2024 Evaluation + Plan noteExtracted from:Title: ED NoteAuthor:Matthew MILES, Zhane EnriquezDate:11/05/23 Chronic lower back pain (M54 .50: Low [...] Date:11/13/2023 08:00:00 AM Scheduled Provider:Domenic Sher DO Location:[facility] Appointment Type:Pain Management - Follow Up (FT) Future Scheduled Tests Laboratory* TSH With T4fr Reflex 07/17/23 * Urinalysis with Micro 07/17/23 * Lipid Panel 07/17/23 * Drug Screen Urine 07/17/23 Radiology* MA Mamm Screen w/CAD if perf and 3D Kenan 07/17/23 [facility] 08-09-2024 Hospital course Narrative* Hui Li PA-C - 11/01/2023 10:51 AM EDT Discharge Diagnosis Wound dehiscence Test Results Pending At Discharge Pending Labs Order Current Status C-reactive protein In process Renal Function Panel In process Blood Culture Preliminary result Hospital Course Jerad Tracy is a 48 y.o. female with a past medical history of chronic low back pain, neuropathic BLE pain (R>L), LL radiculopathy, HCV, GERD, depression, bipolar disorder and recent percutaneousspinal cord stimulator placement on 09/22 (L buttock generator placement) complicated by wound dehiscence s/p PICC on 10/12 with wound washout and removal of lead/generator on 10/13. Patient returned to [facility] ED on 10/30 with pain at incision site. MRI with underlying fluid collection. Patient admitted to neurosurgery service for monitoring. Low concern for wound infection as previous cultures with nogrowth and already s/p antibiotic course. No further operative intervention pursued and patient disc harged home with 2 week course of PO antibiotics. Patient discharged with detailed instructions andclose 1 week scheduled outpatient follow up. Pertinent Physical Exam At Time of Discharge Constitutional: A&Ox3, calm and cooperative, NAD. Eyes: PERRL, clear sclera . ENMT: Moist mucous membranes, no apparent injuries or lesions. Head/Neck: Face symmetric. Cardiovascular: Normal rate and regular rhythm. 2+ equal pulses of the distal extremities. Respiratory/Thorax: CTAB, regular respirations on RA. Good symmetric chest expansion. Gastrointestinal: Abdomen soft, non tender. Extremities: RUE 5/5. LUE 5/5. RLE 5/5. LLE 5/5. Sensation intact to light touch throughout all extremities Neurological: A&Ox3. Psychological: Appropriate mood and behavior. Home Medications Medication List START taking these medications sulfamethoxazole-trimethoprim 800-160 mg tablet; Commonly known as: Bactrim DS; Take 2 tablets by mouth every 12 hours for 28 doses. CONTINUE taking these medications acetaminophen 325 mg tablet; Commonly known as: Tylenol; Take 2 tablets (650 mg) by mouth every 6 hours if needed for mild pain (1 - 3). FLUoxetine 60 mg tablet; Commonly known as: [...] DR capsule; Commonly known as: PriLOSEC oxyCODONE 5 mg immediate release tablet; Commonly known as: Roxicodone; Take 1 tablet (5 mg) by mouth every 6 hours if needed for severe pain (7 - 10). sennosides-docusate sodium 8.6-50 mg tablet; Commonly known as: Judy-Colace; Take 2 tablets by mouth 2 times a day. For constipation while taking pain medication Oxycodone STOP taking these medications amoxicillin-pot clavulanate 875-125 mg tablet; Commonly known as: Augmentin cyclobenzaprine 10 mg tablet; Commonly known as: Flexeril doxycycline 100 mg capsule; Commonly known as: Vibramycin Outpatient Follow-Up Future Appointments Date Time Provider Department Center 11/08/2023 7:45 AM [facility] 12/03/2023 1:00 PM Chirag Reynoso, HOT BLASTER-WAIVER ANALYST [id number] [facility] 12/20/2023 1:00 PM Elke Adams MD [id number] [facility] Hui Li PA-C Total face to face time spent with patient/family of 30 minutes, with >50% of the time spent discussing plan of care/management, counseling/educating on disease processes, explaining results of diagnostic testing.' documented in this [facility] Work Phone: [phone]) 683-855008-09-2024 Hospital Note* Hospital Course - Hui Li PA-C - 11/01/2023 10:47 AM EDT Jerad Tracy is a 48 y.o. female with a past medical history of chronic low back pain, neuropathic BLE pain (R>L), LL radiculopathy, HCV, GERD, depression, bipolar disorder and recent percutaneousspinal cord stimulator placement on 09/22 (L buttock generator placement) complicated by wound dehiscence s/p PICC on 10/12 with wound washout and removal of lead/generator on 10/13. Patient returned to [facility] ED on 10/30 with pain at incision site. MRI with underlying fluid collection. Patient admitted to neurosurgery service for monitoring. Low concern for wound infection as previous cultures with nogrowth and already s/p antibiotic course. No further operative intervention pursued and patient disc harged home with 2 week course of PO antibiotics. Patient discharged with detailed instructions andclose 1 week scheduled outpatient follow up. [facility] Work Phone: [phone]) 602-259808-09-2024 Miscellaneous Notes* Hospital Course - Hui Li PA-C - 11/01/2023 10:47 AM EDT Jerad Tracy is a 48 y.o. female with a past medical history of chronic low back pain, neuropathic BLE pain (R>L), LL radiculopathy, HCV, GERD, depression, bipolar disorder and recent percutaneousspinal cord stimulator placement on 09/22 (L buttock generator placement) complicated by wound dehiscence s/p PICC on 10/12 with wound washout and removal of lead/generator on 10/13. Patient returned to [facility] ED on 10/30 with pain at incision site. MRI with underlying fluid collection. Patient admitted to neurosurgery service for monitoring. Low concern for wound infection as previous cultures with nogrowth and already s/p antibiotic course. No further operative intervention pursued and patient disc harged home with 2 week course of PO antibiotics. Patient discharged with detailed instructions andclose 1 week scheduled outpatient follow up. * Care Plan - Sirisha Meyer RN - 11/01/2023 1:59 AM EDT Problem: Skin Goal: Decreased wound size/increased tissue granulation at next dressing change Outcome: Progressing Goal: Participates in plan/prevention/treatment measures Outcome: Progressing Goal: Promote skin healing Outcome: Progressing Problem: Pain - Adult Goal: Verbalizes/displays adequate comfort level or baseline comfort level Outcome: Progressing The patient's goals for the shift include The clinical goals for the shift include documented in this [facility] Work Phone: [phone]) 966-377508-09-2024 Plan of care note* Care Plan - Sirisha Meyer RN - 11/01/2023 1:59 AM EDT Problem: Skin Goal: Decreased wound size/increased tissue granulation at next dressing change Outcome: Progressing Goal: Participates in plan/prevention/treatment measures Outcome: Progressing Goal: Promote skin healing Outcome: Progressing Problem: Pain - Adult Goal: Verbalizes/displays adequate comfort level or baseline comfort level Outcome: Progressing The patient's goals for the shift include The clinical goals for the shift include [facility]08-08-2024 History of Present illness Narrative * Janet Regalado - 10/31/2023 9:54 AM EDT Pharmacy Medication History Review Jerad Dee is a 48 y.o. female admitted for Wound dehiscence. Pharmacy reviewed the patient's cykjl-mk-nujctijta medications and allergies for accuracy. Medications ADDED: None Medications CHANGED: None Medications REMOVED: None The list below reflects the updated SALES SERVICE COORDINATOR list. Comments regarding how patient may be taking medications differently can be found in the Admit Orders Activity Prior to Admission Medications Prescriptions Last Dose Informant FLUoxetine (PROzac) 60 mg tablet 10/29/2023 Self Sig: Take 1 tablet (60 mg) by mouth once daily. acetaminophen (Tylenol) 325 mg tablet More than a month Self Sig: Take 2 tablets (650 mg) by mouth every 6 hours if needed for mild pain (1 - 3). Patient not taking: Reported on 10/31/2023 amoxicillin-pot clavulanate (Augmentin) 875-125 mg tablet 10/25/2023 Sig: Take 1 tablet by mouth every 12 hours for 10 days. Completed regimen 10/25/23. cyclobenzaprine (Flexeril) 10 mg tablet Sig: Take 1 tablet (10 mg) by mouth 3 times a day as needed for muscle spasms for up to 7 days. Patient not Taking. doxycycline (Vibramycin) 100 mg capsule 10/25/2023 Sig: Take 1 capsule (100 mg) by mouth every 12 hours for 10 days. Take with at least 8 ounces (large glass) of water, do not lie down for 30 minutes after. Completed regimen 10/25/23. hydrOXYzine HCL (Atarax) 25 mg tablet 10/30/2023 Self Sig: Take 1 tablet (25 mg) by mouth 3 times a day. naloxone (Narcan) 4 mg/0.1 mL nasal spray Self Sig: Administer 1 spray (4 mg) into affected nostril(s) if needed for opioid reversal. May repeat every 2-3 minutes if needed, alternating nostrils, until medical assistance becomes available. omeprazole (PriLOSEC) [address] capsule 10/30/2023 Self Sig: Take 1 capsule (20 mg) by mouth 2 times a day before meals. Do not crush or chew. oxyCODONE (Roxicodone) 5 mg immediate release tablet 10/27/2023 Self Sig: Take 1 tablet (5 mg) by mouth every 6 hours if needed for severe pain (7 - 10). sennosides-docusate sodium (Judy-Colace) 8.6-50 mg tablet Past Month Self Sig: Take 2 tablets by mouth 2 times a day. For constipation while taking pain medication Oxycodone Facility-Administered Medications: None The list below reflects the updated allergy list. Please review each documented allergy for additional clarification and justification. Allergies Reviewed by Janet Regalado on 10/31/2023 Severity Reactions Comments Penicillins Medium Hives Reported hives as a child. Prescribed cephalexin September 2023 and reported itching only (no rash/hives). Also reports having taken amoxicillin in the past and tolerated. Nabumetone Low Nausea/vomiting, Rash Patient accepts M2B at discharge. Pharmacy has been updated to [facility]. Sources used to complete the med history include: OAARS Interview with Patient (very pleasant and knowledgeable) Outpatient Fill History Care Everywhere Reviewed ( Nothing to Note) Below are additional concerns with the patient's SALES SERVICE COORDINATOR list: ~ None Janet Regalado [facility] [employer] [facility] Please reach out via Secure Chat for questions, or if no response call [employer] or [employer] documented in this encounterUnWood [facility] Hospital Work Phone: [phone]) 365-537408-08-2024 Emergency department Note* Mario Wright RN - 10/31/2023 2:19 AM EDT Pt presents to the ED from [facility] as transfer for lower back pain. As per EMS, pt has a nerve stimulator placed on 09/23/23 for a herniated disc in L4/L5 and had it removed on 10/14/23 due to infection. PT was given IVPB abx for a wk and at discharge. Pt reported still having 10/10 lower back pain. Pt was given 4 mgx3 morphine SALES SERVICE COORDINATOR. documented in this encounterUnWood [facility] Hospital Work Phone: [phone]) 215-537908-08-2024 Emergency department Triage note* Mario Wright RN - 10/31/2023 2:19 AM EDT Pt presents to the ED from [facility] as transfer for lower back pain. As per EMS, pt has a nerve stimulator placed on 09/23/23 for a herniated disc in L4/L5 and had it removed on 10/14/23 due to infection. PT was given IVPB abx for a wk and at discharge. Pt reported still having 10/10 lower back pain. Pt was given 4 mgx3 morphine SALES SERVICE COORDINATOR. [facility] Work Phone: [phone]) 510-662908-07-2024 History of Present illness Narrative* Joan Dumont - 10/30/2023 7:19 PM EDT Need lumbar spine x-ray to clear pt for MRI to make sure all stimulator and internal wires are completely removed [facility] Discharge instructions Patient Education [...] and water are not available, 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 Do not use disinfectants or antiseptics, such [...] Follow these instructions at home Medicines Take oqem-hvx-efekcft and prescription medicines only as told by [...] and water are not available, 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 Check your incision area every day for signs of infection. Keep all follow-up visits. This is important. This information is not intended to replace advice given to you by your health care provider. Make sure you discuss any questions you have with your health care provider. Document Revised: 06/12/2021 Document Reviewed: 06/12/2021 [employer] Patient Education 2022 [employer]. 10/30/2023 12:55:31 Chronic Back Pain Chronic Back [...] pull them backward. 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 [...] prescription pain medicine, or muscle relaxants. Take vmmb-xcp-ioxsjep and prescription medicines onlyas told by your health care provider. Ask your health care provider if the medicine prescribed to you: ?Requires you to avoid driving or using machinery. ?Can cause constipation. You may need to take these actions to prevent or treat constipation: ?Drink enough fluid to keep your urine pale yellow. ?Take ahyy-fwl-mwrcmee or prescription medicines. ?Eat foods that are [...] provider. Document Revised: 04/20/2020 Document Reviewed: 04/20/2020 [employer] Patient Education 2022 [employer]. Follow Up Care 10/30/2023 12:12:04 With:Mayra Rosas Address: [address] [place] [address] Business (1) When:11/02/2023 12:41:56 Comments:Return to the emergency room if your pain gets worse, fever or any new symptoms [facility] 08-07-2024 Evaluation + Plan noteExtracted from:Title: ED NoteAuthor:Balbina Bryant M.D. HDate:10/30/23 1. Chronic lower back pain ( M54.50: [...] Date:11/13/2023 08:00:00 AM Scheduled Provider:Domenic Sher DO Location:[facility] Appointment Type:Pain Management - Follow Up (FT) Future Scheduled Tests Laboratory* TSH With T4fr Reflex 07/17/23 * Urinalysis with Micro 07/17/23 * Lipid Panel 07/17/23 * Drug Screen Urine 07/17/23 Radiology* MA Mamm Screen w/CAD if perf and 3D Kenan 07/17/23 [facility] 08-03-2024 Evaluation + Plan noteExtracted from:Title: ED NoteAuthor:Pedro Pablo Fletcher DODate:10/26/23 Candidal intertrigo (B37.2: Candidiasis of skin and nail) Orders: ketoconazole topical, 1 kennedi, Topical, BID for 28 day(s), 60 gm, Refill(s) 0, [id number], 160, cm, 10/26/23 2:47:00 EDT, Height/Length Dosing, 116.7, kg, 10/26/23 2:47:00 EDT, Weight Dosing Future Appointments Appointment Date:11/13/2023 08:00:00 AM Scheduled Provider:Domenic Sher DO Location:[facility] Appointment Type:Pain Management - Follow Up (FT) Future Scheduled Tests Laboratory* TSH With T4fr Reflex 07/17/23 * Urinalysis with Micro 07/17/23 * Lipid Panel 07/17/23 * Drug Screen Urine 07/17/23 Radiology* MA Mamm Screen w/CAD if perf and 3D Kenan 07/17/23 [facility] 08-03-2024 Hospital Discharge instructions Patient Education 10/26/2023 [...] air conditioner or fan, if available. Apply clvn-hvs-blaxfyy and prescription medicines only as told by [...] well after activity or exercise. Use a hairspring studder on a cool setting to dry between [...] drying your skin and with medicines. Apply tvxk-rbo-ylcrixq and prescription medicines only as told by your health care provider. Keep all follow-up visits as told by your health care provider. This is important. This information is not intended to replace advice given to you by your health care provider. Make sure you discuss any questions you have with your health care provider. Document Revised: 05/23/2022 Document Reviewed: 12/25/2021 [employer] Patient Education 2022 [employer]. Follow Up Care 10/26/2023 02:36:10 With:Mayra Rosas Address: [address], [facility] A [address] [address] Business (1) When:10/31/2023 [facility] 07-14-2024 Hospital Discharge instructions* Discharge Instructions* Gavin Nuñez DO - 10/06/2023 2:30 AM EDT I have sent prescriptions for your pain meds and antibiotics to your pharmacy. We have also provided dressings for you to use on your surgical site. Please follow-up with the neurosurgeons and they will arrange follow-up for you. Return to the emergency department for any new or worsening symptoms or for any other concerns. * Attachments The following attachments cannot be sent through Care Everywhere. * Wound Infection (Malagasy) documented in this [facility] Work Phone: 1(211) 670-110207-13-2024 Consult note* Brie Gottlieb MD - 10/05/2023 10:12 PM EDT Reason For Consult Wound dehiscence History Of Present Illness Leila Tracy is a 48 y.o. female presenting with wound dehiscence and wound drainage at home for two days. Per patient she had no prior wound concerns before two days ago. Feels she had subjective fevers at home and that midline incision became more red and painful today. Past Medical History She has a past medical history of Anxiety, Arthritis, Bipolar disorder (Multi), Chronic back pain, Chronic pain disorder, Depression, HCV (hepatitis C virus) (2013), Herniated lumbar intervertebral disc, Liver disease, Neuropathic pain, Obesity, and Vision loss. Surgical History She has a past surgical history that includes Cholecystectomy; Hysterectomy; Tonsillectomy; Myringotomy w/ tubes (Bilateral); Dental surgery (Bilateral); Bunionectomy; Colonoscopy; and Adenoidectomy. Social History She reports that she has been smoking cigarettes. She has never used smokeless tobacco. She reportscurrent alcohol use. She reports that she does not currently use drugs. Family History Family History Problem Relation Name Age of Onset Lung disease Mother COPD Mother Lung disease Father Lung cancer Father Heart disease Father Allergies Hydrocodone, Hydrocodone-acetaminophen, Penicillins, and Nabumetone Review of Systems 10 point ROS is obtained and negative except the ones mentioned in the HPI Physical Exam General: awake, alert interactive HEENT: atraumatic, mucus membranes moist Neuro: NAD, A&Ox3 Cranial Nerves II-XII: PERRL, EOMI, Face symmetric, Facial SILT, Palate/Tongue midline and symmetric, shoulder shrugs symmetric Motor: 5/5, no dysmetria on finger to nose, no pronator drift Sensation: SILT throughout all extremities DTRS: 2+ Throughout, No Hoffmans or Clonus Cardiac: RRR on monitor Respiratory: breathing comfortably on RA Abdomen: non tender, non distended MSK: ROM WNL Skin: warm, dry, L buttock incision, c/d/I, slightly erythematous with skin breakdown just outside of incision, midline incision with superficial dehiscence, no fluid noted Last Recorded Vitals Blood pressure (!) 139/113, pulse 75, temperature 36.6 C (97.9 F), temperature source Oral, resp. rate 18, height 1.6 m (5' 3 ), weight 113 kg (250 lb), SpO2 96%. Relevant Results No imaging to review Assessment/Plan Leila Tracy is a 48 yr old F with h/o chronic bilateral low back pain, neuropathic BLE pain (R>L), LL radiculopathy, HCV, GERD, depression, bipolar disorder, 09/22 s/p perc spinal cord stim placement, L buttock generator placement, p/w wound dehisence Recommendations: Please obtain basic labs including infections labs (CBC, CRP, ESR, blood cultures) No imaging needed at this time Pending labs would recommend: Dispo with Keflex for 2 weeks - will arrange 1 week follow up Please send home with [facility] , wound care consult as able Type Photography Supervisor patient to return with any concerning symptoms including purulent drainage, exposed hardware, continued fevers/chills/rigors Patient staffed with attending Dr. Barron who agrees with the above recommendations Brie Gottlieb MD Associated attestation - Mora Barron MD - 10/06/2023 12:16 AM EDT I saw and evaluated the patient. I personally obtained the medrano and critical portions of the historyand physical exam or was physically present for medrano and critical portions performed by the resident/fellow. I reviewed the resident/fellow's documentation and discussed the patient with the resident/f garrick. I agree with the resident/fellow's medical decision making as documented in the note. [facility] Work Phone: [phone] 744-278307-13-2024 Consult note* Brie Gottlieb MD - 10/05/2023 10:12 PM EDT Reason For Consult Wound dehiscence History Of Present Illness Leila Tracy is a 48 y.o. female presenting with wound dehiscence and wound drainage at home for two days. Per patient she had no prior wound concerns before two days ago. Feels she had subjective fevers at home and that midline incision became more red and painful today. Past Medical History She has a past medical history of Anxiety, Arthritis, Bipolar disorder (Multi), Chronic back pain, Chronic pain disorder, Depression, HCV (hepatitis C virus) (2013), Herniated lumbar intervertebral disc, Liver disease, Neuropathic pain, Obesity, and Vision loss. Surgical History She has a past surgical history that includes Cholecystectomy; Hysterectomy; Tonsillectomy; Myringotomy w/ tubes (Bilateral); Dental surgery (Bilateral); Bunionectomy; Colonoscopy; and Adenoidectomy. Social History She reports that she has been smoking cigarettes. She has never used smokeless tobacco. She reportscurrent alcohol use. She reports that she does not currently use drugs. Family History Family History Problem Relation Name Age of Onset Lung disease Mother COPD Mother Lung disease Father Lung cancer Father Heart disease Father Allergies Hydrocodone, Hydrocodone-acetaminophen, Penicillins, and Nabumetone Review of Systems 10 point ROS is obtained and negative except the ones mentioned in the HPI Physical Exam General: awake, alert interactive HEENT: atraumatic, mucus membranes moist Neuro: NAD, A&Ox3 Cranial Nerves II-XII: PERRL, EOMI, Face symmetric, Facial SILT, Palate/Tongue midline and symmetric, shoulder shrugs symmetric Motor: 5/5, no dysmetria on finger to nose, no pronator drift Sensation: SILT throughout all extremities DTRS: 2+ Throughout, No Hoffmans or Clonus Cardiac: RRR on monitor Respiratory: breathing comfortably on RA Abdomen: non tender, non distended MSK: ROM WNL Skin: warm, dry, L buttock incision, c/d/I, slightly erythematous with skin breakdown just outside of incision, midline incision with superficial dehiscence, no fluid noted Last Recorded Vitals Blood pressure (!) 139/113, pulse 75, temperature 36.6 C (97.9 F), temperature source Oral, resp. rate 18, height 1.6 m (5' 3 ), weight 113 kg (250 lb), SpO2 96%. Relevant Results No imaging to review Assessment/Plan Leila Tracy is a 48 yr old F with h/o chronic bilateral low back pain, neuropathic BLE pain (R>L), LL radiculopathy, HCV, GERD, depression, bipolar disorder, 09/22 s/p perc spinal cord stim placement, L buttock generator placement, p/w wound dehisence Recommendations: Please obtain basic labs including infections labs (CBC, CRP, ESR, blood cultures) No imaging needed at this time Pending labs would recommend: Dispo with Keflex for 2 weeks - will arrange 1 week follow up Please send home with [facility] , wound care consult as able Type Photography Supervisor patient to return with any concerning symptoms including purulent drainage, exposed hardware, continued fevers/chills/rigors Patient staffed with attending Dr. Barron who agrees with the above recommendations Brie Gottlieb MD Associated attestation - Mora Barron MD - 10/06/2023 12:16 AM EDT I saw and evaluated the patient. I personally obtained the medrano and critical portions of the historyand physical exam or was physically present for medrano and critical portions performed by the resident/fellow. I reviewed the resident/fellow's documentation and discussed the patient with the resident/f garrick. I agree with the resident/fellow's medical decision making as documented in the note. documented in this [facility] Work Phone: [phone]) 402-626307-13-2024 Emergency department Note* Abby Malone, KASH - 10/05/2023 9:19 PM EDT Pt is a transfer from [facility] for post op complications. Pt states she had an electrode stimulator implanted in her lower back on 09/22. 4 days ago she noticed redness, pain and draining of purulent fluid from the surgical site. Pt denies n/v/d, sob, abd pain, or cp. * Jarocho Camarena RN - 10/05/2023 9:19 PM EDT Pt has an infection in her implanted electrode stimulator. Pt reports that it is hot, red, and has yellow drainage [facility] Phone: [phone]) 423-255307-13-2024 Emergency department Triage note* KASH Astudillo - 10/05/2023 9:19 PM EDT Pt is a transfer from [facility] for post op complications. Pt states she had an electrode stimulator implanted in her lower back on 09/22. 4 days ago she noticed redness, pain and draining of purulent fluid from the surgical site. Pt denies n/v/d, sob, abd pain, or cp. [facility]07-13-2024 Emergency department Triage note* Jarocho Camarena RN - 10/05/2023 9:19 PM EDT Pt has an infection in her implanted electrode stimulator. Pt reports that it is hot, red, and has yellow drainage [facility] Work Phone: [phone]) 785-220307-13-2024 Note* Significant Event - Jet Ortiz MD - 10/05/2023 9:01 PM EDT This is an expected neurosurgical patient, POD12 from spinal cord stimulator placement with purported wound dehiscence and stigmata of sepsis. On arrival, please ensure the patient is called and NSGYteam paged ([phone]). Make NPO Preoperative labs (CBC, RFP, coag, T+S) Bcx, ESR, CRP [facility] Work Phone: [phone]) 677-380807-13-2024 Miscellaneous Notes* Significant Event - Jet Ortiz MD - 10/05/2023 9:01 PM EDT This is an expected neurosurgical patient, POD12 from spinal cord stimulator placement with purported wound dehiscence and stigmata of sepsis. On arrival, please ensure the patient is called and NSGYteam paged ([phone]). Make NPO Preoperative labs (CBC, RFP, coag, T+S) Bcx, ESR, CRP [facility] Work Phone: [phone]) 512-225307-13-2024 NoteEducation Materials Dermatology Wound Dehiscence Wound dehiscence [...] these instructions at home: Medicines ? Take fwvl-sdw-udrvjze and prescription medicines only as told by [...] youcannot use soap and water, 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 ? Wash your wound with mild soap [...] provider. Document Revised: 03/02/2020 Document Reviewed: 03/02/2020 [email or web address] Patient Education ? 2022 [employer].[facility] [id number] Note Pt ambulator back to ED RM 6 C/O insicioin pain. Pt was in the ED recently for the same complaint. Pt had a procedure done on her lower back. Wound is red, inflamed and little bit of drainage noted. Pt was prescribed antibiotics and took all of the prescribed antibiotic. Pt is A/Ox4 call light within reach [facility]07-12-2024 Hospital Discharge instructions Patient Education 10/04/2023 15:44:00 Contact Dermatitis, Mrhs-zf-Evwz Contact Dermatitis Dermatitis is redness, soreness, and [...] perfumes, and dyes. Medicines Take or apply dmxe-mni-toeovhl and prescription medicines only as told by [...] soap and water arenot available, 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 General instructions Avoid the things that caused [...] provider. Document Revised: 12/25/2021 Document Reviewed: 12/25/2021 [employer] Patient Education 2022 [employer]. 10/04/2023 15:44:00 Acute Back Pain, Adult Acute [...] home: Managing pain, stiffness, and swelling Take qhkx-uht-boxuuvr and prescription medicines only as told by [...] each day. 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 Take dkga-rfp-qwooaon and prescription medicines only as told by your health care provider, and apply heat or ice as told. This information is not intended to replace advice given to you by your health care provider. Make sure you discuss any questions you have with your health care provider. Document Revised: 06/02/2021 Document Reviewed: 06/02/2021 [employer] Patient Education 2022 [employer]. 10/04/2023 15:44:00 Wound Dehiscence, Onmc-zi-Hjus Wound Dehiscence Wound dehiscence is when a [...] Follow these instructions at home: Medicines Take zvbi-cac-upwlaot and prescription medicines only as told by [...] cannot use soap and water, 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 ?Wash your wound with mild soap and [...] provider. Document Revised: 03/02/2020 Document Reviewed: 03/02/2020 [employer] Patient Education 2022 [employer]. Follow Up Care 10/04/2023 14:32:53 With:Mayra Rosas [facility] [address] [address]- Business (1) When:10/07/2023 15:32:21 Comments:Call Dr for diagnosis based follow up [facility]07-04-2024 NoteEducation Materials Caregiving Pain Medicine Instructions You [...] take your next dose. ? Take other bzjw-gai-pwlyqgc or prescription medicines only as told by [...] your pee (urine) pale yellow. ? Take qsvc-zep-cpcaoew or prescription medicines. ? Eat foods that [...] awake. ? Your skin (more content not included)...[facility] [id number] NotePt ambulatory back to ED RM 10, C/O lower back pain. Pt had a procedure down on the lower back at the [facility]. by Dr. Adams. 12/02 pain, the inscions is red, warm to touch. no fever. Pt stated she was not sent home on any antibiotics. Pt tried to call the hospital and was told to come to the ER. Pt is A/ox4 call light within reach. the incision is locate on her lower back to her butt crack. [facility]07-03-2024 Hospital Discharge instructions Patient Education 09/25/2023 [...] Follow these instructions at home: Medicines Take chbw-sou-hvhxftu and prescription medicines only as told by [...] such as antibiotic medicines or antihistamines. Take rood-rsi-odezers and prescription medicines only as told by [...] provider. Document Revised: 12/20/2021 Document Reviewed: 12/21/2021 [employer] Patient Education 2022 [employer]. Follow Up Care 09/25/2023 11:29:17 With:Mayra Rosas Address: [address] [place] [address] Business (1) When:09/28/2023 13:36:08 Comments:Call Dr for diagnosis based follow up [facility]07-03-2024 Evaluation + Plan noteExtracted from: Title:ED NoteAuthor:Landon Tidwell PA-CDate:09/25/23 Cellulitis (L03.90: Cellulit is, unspecified) Post-operative complication (T81.9XXA: Unspecified complication of procedure, initial encounter) Orders: cephalexin, 500 mg = 1 cap(s), Oral, q6hr, X 7 day(s), # 28 cap(s), Refills(s) 0, Pharmacy: [id number], 160, cm, 09/25/23 11:43:00 EDT, Height/Length Dosing, 115.3, kg, 09/25/23 11:43:00 EDT,Weight Dosing morphine, 4 mg = 1 mL, Injection, IntraMuscular, Once, Stop date 09/25/23 12:06:00 EDT, STAT, Startdate 09/25/23 12:06:00 EDT, 09/25/23 12:06:00 EDT sulfamethoxazole-trimethoprim, 1 tab(s), Oral, BID for 7 day(s), 14 tab(s), Refill(s) 0, [id number], 160, cm, 09/25/23 11:43:00 EDT, Height/Length Dosing, 115.3, kg, 09/25/23 11:43:00 EDT, Weight Dosing CT Spine Lumbar w/o Contrast Future Appointments Appointment Date:11/13/2023 08:00:00 AM Scheduled Provider:Domenic Sher DO [facility] Appoint[facility] Type:Pain Management - Follow Up (FT) Future Scheduled Tests Laboratory* TSH With T4fr Reflex 07/17/23 * Urinalysis with Micro 07/17/23 * Lipid Panel 07/17/23 * Drug Screen Urine 07/17/23 Radiology* MA Mamm Screen w/CAD if perf and 3D Kenan 07/17/23 [facility]07-01-2024 Note* Perioperative Nursing Note - Swati Mcgarry RN - 09/23/2023 12:21 PM EDT 1215- Discharge instructions given and reviewed with pt and family. No questions or concerns at this time [facility]07-01-2024 Miscellaneous Notes* Perioperative Nursing Note - Swati Mcgarry RN - 09/23/2023 12:21 PM EDT 1215- Discharge instructions given and reviewed with pt and family. No questions or concerns at this time * Brief Op Note - Brie Gottlieb MD - 09/23/2023 8:49 AM EDT Date: 09/23/2023 OR Location: [facility] OR Name: Jerad Dee , : 1975, Age: 48 y.o., , Sex: female Diagnosis Pre-op Diagnosis * Chronic back pain greater than 3 months duration [M54.9, G89.29] * Neuropathic pain [M79.2] Post-op Diagnosis * Chronic back pain greater than 3 months duration [M54.9, G89.29] * Neuropathic pain [M79.2] Procedures Percutaneous Thoracic Spinal Cord Stimulator Leads and Generator Placement - [employer] 18957 - MS PRQ IMPLTJ NSTIM ELECTRODE ARRAY EPIDURAL Percutaneous Thoracic Spinal Cord Stimulator Leads and Generator Placement - [place] 75000 - MS INSJ/RPLCMT SPINAL NPG/RCVR POCKET CRTJ&CONNJ MS ELEC GARO IMPLT NPGT SMPL SP/PN NPGT PRGRMG [19605] Surgeons * Elke Adams - Primary Resident/Fellow/Other Herbicide Sprayer: Surgeons and Role: * Brie Gottlieb MD - Resident - Assisting Procedure Summary Anesthesia: Monitor Anesthesia Care ASA: III Anesthesia Staff: Anesthesiologist: Reyes Evans MD PLASTIC PRESS MOLDER: Teodora Blair APRN-PLASTIC PRESS MOLDER Estimated Blood Loss: 5mL Intra-op Medications: Administrations occurring from 0715 to 1045 on 09/23/23: Medication Name Total Dose BUPivacaine HCl (Marcaine) 0.25 % (2.5 mg/mL) injection 30 mL lidocaine-epinephrine (Xylocaine W/EPI) 1 %-1:100,000 injection 30 mL sodium bicarbonate 4.2 % injection 6 mEq ceFAZolin (Ancef) injection 1 g polymyxin B injection 500 Units sodium chloride 0.9 % irrigation solution 1,000 mL Anesthesia Record Intraprocedure I/O Totals Intake Dexmedetomidine 0.00 mL The total shown is the total volume documented since Anesthesia Start was filed. Remifentanil Drip 0.00 mL The total shown is the total volume documented since Anesthesia Start was filed. Propofol Drip 0.00 mL The total shown is the total volume documented since Anesthesia Start was filed. lactated Ringer's 600.00 mL Total Intake 600 mL Output Est. Blood Loss 20 mL Total Output 20 mL Net Net Volume 580 mL Specimen: No specimens collected Staff: Sales Representative [employer]: Cindy Solanoub Person: Rd Solanoub Person: Ron Knapp Sales Representative [employer]: Jackie Knapp Scrub: Francisco J Findings: good lead placement confirmed on xray Complications: None; patient tolerated the procedure well. Disposition: PACU - hemodynamically stable. Condition: stable Specimens Collected: No specimens collected Attending Attestation: Elke Adams documented in this [facility] Work Phone: 1(355) 998-143607-01-2024 Note* Brief Op Note - Brie Gottlieb MD - 09/23/2023 8:49 AM EDT Date: 09/23/2023 OR Location: [facility] OR Name: Jerad Dee , : 1975, Age: 48 y.o., , Sex: female Diagnosis Pre-op Diagnosis * Chronic back pain greater than 3 months duration [M54.9, G89.29] * Neuropathic pain [M79.2] Post-op Diagnosis * Chronic back pain greater than 3 months duration [M54.9, G89.29] * Neuropathic pain [M79.2] Procedures Percutaneous Thoracic Spinal Cord Stimulator Leads and Generator Placement - [place] 47109 - MS PRQ IMPLTJ NSTIM ELECTRODE ARRAY EPIDURAL Percutaneous Thoracic Spinal Cord Stimulator Leads and Generator Placement - [employer] 55134 - MS INSJ/RPLCMT SPINAL NPG/RCVR POCKET CRTJ&CONNJ MS ELEC GARO IMPLT NPGT SMPL SP/PN NPGT PRGRMG [[id number]] Surgeons * Elke Adams - Primary Resident/Fellow/Other Herbicide Sprayer: Surgeons and Role: * Brie Gottlieb MD - Resident - Assisting Procedure Summary Anesthesia: Monitor Anesthesia Care ASA: III Anesthesia Staff: Anesthesiologist: Reyes Evans MD PLASTIC PRESS MOLDER: Teodora Blair APRN-PLASTIC PRESS MOLDER Estimated Blood Loss: 5mL Intra-op Medications: Administrations occurring from 0715 to 1045 on 09/23/23: Medication Name Total Dose BUPivacaine HCl (Marcaine) 0.25 % (2.5 mg/mL) injection 30 mL lidocaine-epinephrine (Xylocaine W/EPI) 1 %-1:100,000 injection 30 mL sodium bicarbonate 4.2 % injection 6 mEq ceFAZolin (Ancef) injection 1 g polymyxin B injection 500 Units sodium chloride 0.9 % irrigation solution 1,000 mL Anesthesia Record Intraprocedure I/O Totals Intake Dexmedetomidine 0.00 mL The total shown is the total volume documented since Anesthesia Start was filed. Remifentanil Drip 0.00 mL The total shown is the total volume documented since Anesthesia Start was filed. Propofol Drip 0.00 mL The total shown is the total volume documented since Anesthesia Start was filed. lactated Ringer's 600.00 mL Total Intake 600 mL Output Est. Blood Loss 20 mL Total Output 20 mL Net Net Volume 580 mL Specimen: No specimens collected Staff: Sales Representative [employer]: Cindy Solanoub Person: Rd Solanoub Person: Ron Knapp Sales Representative [employer]: Jackie Knapp Scrub: Francisco J Findings: good lead placement confirmed on xray Complications: None; patient tolerated the procedure well. Disposition: PACU - hemodynamically stable. Condition: stable Specimens Collected: No specimens collected Attending Attestation: Elke Adams [facility] Work Phone: 1(472) 726-808107-01-2024 Attending History and physical note* Brie Gottlieb MD - 09/23/2023 6:58 AM EDT H&P reviewed. The patient was examined and there are no changes to the H&P. 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 History of Present Illness [...] (hepatitis C virus) 2013 (in setting of [place] [facility] use), treated with medication, seen by [...] Drug use: Not Currently Comment: last use 2015- heroin Family History Problem Relation Name Age [...] S/p removal of perc thoracic lead, c/d/I. [facility] Work Phone: 1([phone]) 502-407807-01-2024 History and physical note* Brie Gottlieb MD - 09/23/2023 6:58 AM EDT H&P reviewed. The patient was examined and there are no changes to the H&P. Source Note - Chirag Reynoso APRN-MARINA - 08/27/2023 1:00 PM EDT [facility] Neurosurgery Diagnosis Jerad Dee was [...] with her PCP or pain management for adjunct faculty for medical terminology opioid therapy needs. History of Present Illness [...] (hepatitis C virus) 2013 (in setting of adjunct faculty for medical terminology opioid use), treated with medication, seen by [...] perc thoracic lead, c/d/I. documented in this [facility] Work Phone: 1(443) 325-670106-29-2024 Hospital Discharge instructions Patient Education 09/21/2023 12:23:40 Chronic Back Pain, Bmue-tk-Ekqf Chronic Back Pain When back pain lasts [...] pull them backward. 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 [...] prescription pain medicine, or muscle relaxants. Take qrgl-clw-riyohce and prescription medicines only as told by your doctor. Ask your doctor if the medicine prescribed to you: ?Requires you to avoid driving or using machinery. ?Can cause trouble pooping (constipation). You may need to take these actions to prevent or treat trouble pooping: ?Drink enough fluid to keep your pee (urine) pale yellow. ?Take vyoz-jsa-efsyfhv or prescription medicines. ?Eat foods that are [...] provider. Document Revised: 04/20/2020 Document Reviewed: 04/20/2020 [employer] Patient Education 2022 [employer]. Follow Up Care 09/21/2023 11:14:36 With:Mayra Rosas Address: [address] [place] [address] [place] [phone] Business (1) When:09/24/2023 12:14:29 [facility]06-29-2024 Evaluation + Plan noteExtracted from: Title:ED NoteAuthor:Kristie Boss PA-CDate:09/21/23 1. Chronic low back pain wit h left-sided sciatica (M54.42: Lumbago with sciatica, left side) Other chronic pain (G89.29: Other chronic pain) Orders: cyclobenzaprine, 10 mg = 1 tab(s), Oral, TID, PRN for spasm, # 30 tab(s), Refills(s) 0, Pharmacy: [facility]/pharmacy #[id number], 160, cm, 09/21/23 11:20:00 EDT, [...] Date:11/13/2023 08:00:00 AM Scheduled Provider:Domneic Sher DO Location:.[facility] Appointment Type:Pain Management - Follow Up (FT) Future Scheduled Tests Laboratory* TSH With T4fr Reflex 07/17/23 * Urinalysis with Micro 07/17/23 * Lipid Panel 07/17/23 * Drug Screen Urine 07/17/23 Radiology* MA Mamm Screen w/CAD if perf and 3D Kenan 07/17/23 [facility]06-28-2024 Evaluation + Plan noteExtracted from: Title:ED NoteAuthor:Brandon MILES, JansenDate:09/20/23 Chronic back pain (M54.9: Do rsalgia, unspecified) Other chronic pain (G89.29: Other chronic pain) Orders: oxycodone, 10 mg = 2 tab(s), Tab, Oral, Once, Stop date 09/20/23 11:15:00 EDT, STAT, Start date 09/20/23 11:15:00 EDT, 09/20/23 11:15:00 EDT Future Appointments Appointment Date:11/13/2023 08:00:00 AM Scheduled Provider:Domenic Sher DO Location:.[facility] Appointment Type:Pain Management - Follow Up (FT) Future Scheduled Tests Laboratory* TSH With T4fr Reflex 07/17/23 * Urinalysis with Micro 07/17/23 * Lipid Panel 07/17/23 * Drug Screen Urine 07/17/23 Radiology* MA Mamm Screen w/CAD if perf and 3D Kenan 07/17/23 [facility]06-28-2024 Hospital Discharge instructions Patient Education 09/20/2023 11:31:16 Chronic Obstructive Pulmonary Disease, Nvft-rc-Rxxk Chronic Obstructive Pulmonary Disease Chronic obstructive pulmonary [...] Follow these instructions at home: Medicines Take mqhv-upr-iwyxxlc and prescription medicines only as told by [...] keep yourself as healthy as possible. Take axln-ljd-jppxphe and prescription medicines only as told by your doctor. If you smoke, stop. Smoking makes the problem worse. This information is not intended to replace advice given to you by your health care provider. Make sure you discuss any questions you have with your health care provider. Document Revised: 01/17/2021 Document Reviewed: 01/17/2021 [employer] Patient Education 2022 [employer]. Follow Up Care 09/20/2023 10:52:05 With:Mayra Rosas Address: [address] [place] [address] [place] [phone] Business (1) When:09/23/2023 11:16:15 [facility]06-27-2024 Emergency department Note* Germaine Lloyd, ELIZABETH-WAIVER ANALYST - 09/19/2023 12:11 PM EDT Chief Complaint Patient presents with Fall Pt states she stepped in a hole on her steps and fell down 3 steps around 1000 this morning. Pain to lumbar area, hx bulging discs l4-l5. Took 800 mg of ibuprofen without relief. Denies hitting head or LOC. Patient History Past Medical History: Diagnosis Date Anxiety Arthritis Bipolar disorder (Multi) Chronic back pain Chronic pain disorder Depression taking prozac HCV (hepatitis C virus) 2013 (in setting of [place] [facility] use), treated with medication, seen by Dr. Joseph on 04/01/23 Herniated lumbar intervertebral disc Liver disease stage 3 Neuropathic pain R>L Obesity Vision loss Past Surgical History: Procedure Laterality Date ADENOIDECTOMY BUNIONECTOMY CHOLECYSTECTOMY COLONOSCOPY DENTAL SURGERY Bilateral all teeth removed, dentures HYSTERECTOMY MYRINGOTOMY W/ TUBES Bilateral TONSILLECTOMY Family [...] Social History: Reviewed. Allergies reviewed. HPI: Jerad Dee is a 48 y.o. female who presents to the ED today accompanied by a cousin with complaints of lower back pain status post fall. Patient reportedly fell when she stepped into ahole on her outdoor wooden steps. States that she fell onto her tailbone and is complaining of painthere. Happened on 10:00 this morning. States she has history of bulging disks and is scheduled forstimulator placement in 4 days. She took 1 ibuprofen 800 mg this morning after it happened. Denies head injury. Denies LOC. Denies other pain. PHYSICAL EXAM: GENERAL: Vitals noted, no distress. Alert and oriented x 3. Non-toxic. HEAD: Normocephalic, atraumatic. Pupils equally round and reactive to light. EOMI. NECK: Supple. No midline or paraspinal tenderness through full range of motion. CARDIAC: Regular rate, rhythm. No murmurs or rubs. RESPIRATORY: Lungs clear and equal bilaterally. No respiratory distress. BACK: No cervical, thoracic, or lumbar spinal tenderness. Sacral tenderness without ecchymosis or abrasions. MUSCULOSKELETAL & SKIN: Warm, dry, and intact. No rash/lesions. No peripheral edema. NEURO: No focal neurologic deficits, acting appropriately. Labs Reviewed - No data to display XR sacrum coccyx 2+ views Final Result No evidence of acute displaced sacral or coccygeal fracture. MACRO: None. Signed by: Susie Brennan 09/19/2023 1:41 PM Dictation workstation: [id number] Medical Decision Making ED COURSE: This patient was seen and examined by myself independently. Xray of the sacrum/coccyx noted above, no evidence of fracture. Patient is reassured. She is requesting pain medication. Advisedthe patient that without fracture, hbim-gfq-wggrtnx pain medications or what is indicated. Patient states she is not supposed to be taking her anti-inflammatory prior to her surgery, is requesting something stronger while here in the ED. Patient is given 1 dose of oral tramadol here, she is not driving. Recommended PCP follow-up care and continue on with her surgical plan. Discharged home in stable condition with computer instructions given. DIAGNOSTIC IMPRESSION: #1 sacral contusion Germaine Lloyd APRN-MARINA 09/19/23 1417 documented in this [facility] Work Phone: [phone]) 998-431906-27-2024 Physician Emergency department Note* Germaine Hernandez ROX Lloyd - 09/19/2023 12:11 PM EDT Chief Complaint Patient presents with Fall Pt states she stepped in a hole on her steps and fell down 3 steps around 1000 this morning. Pain to lumbar area, hx bulging discs l4-l5. Took 800 mg of ibuprofen without relief. Denies hitting head or LOC. Patient History Past Medical History: Diagnosis Date Anxiety Arthritis Bipolar disorder (Multi) Chronic back pain Chronic pain disorder Depression taking prozac HCV (hepatitis C virus) 2013 (in [place] of [place] [facility] [place] [facility]), treated with medication, seen by Dr. Joseph on 04/01/23 Herniated lumbar intervertebral disc Liver disease stage 3 Neuropathic pain R>L Obesity Vision loss Past Surgical History: Procedure Laterality Date ADENOIDECTOMY BUNIONECTOMY CHOLECYSTECTOMY COLONOSCOPY DENTAL SURGERY Bilateral all teeth removed, dentures HYSTERECTOMY MYRINGOTOMY W/ TUBES Bilateral TONSILLECTOMY Family [...] Social History: Reviewed. Allergies reviewed. HPI: Jerad Dee is a 48 y.o. female who presents to the ED today accompanied by a cousin with complaints of lower back pain status post fall. Patient reportedly fell when she stepped into ahole on her outdoor wooden steps. States that she fell onto her tailbone and is complaining of painthere. Happened on 10:00 this morning. States she has history of bulging disks and is scheduled forstimulator placement in 4 days. She took 1 ibuprofen 800 mg this morning after it happened. Denies head injury. Denies LOC. Denies other pain. PHYSICAL EXAM: GENERAL: Vitals noted, no distress. Alert and oriented x 3. Non-toxic. HEAD: Normocephalic, atraumatic. Pupils equally round and reactive to light. EOMI. NECK: Supple. No midline or paraspinal tenderness through full range of motion. CARDIAC: Regular rate, rhythm. No murmurs or rubs. RESPIRATORY: Lungs clear and equal bilaterally. No respiratory distress. BACK: No cervical, thoracic, or lumbar spinal tenderness. Sacral tenderness without ecchymosis or abrasions. MUSCULOSKELETAL & SKIN: Warm, dry, and intact. No rash/lesions. No peripheral edema. NEURO: No focal neurologic deficits, acting appropriately. Labs Reviewed - No data to display XR sacrum coccyx 2+ views Final Result No evidence of acute displaced sacral or coccygeal fracture. MACRO: None. Signed by: Susie Brennan 09/19/2023 1:41 PM Dictation workstation: [id number] Medical Decision Making ED COURSE: This patient was seen and examined by myself independently. Xray of the sacrum/coccyx noted above, no evidence of fracture. Patient is reassured. She is requesting pain medication. Advisedthe patient that without fracture, wkdu-zms-rdjagly pain medications or what is indicated. Patient states she is not supposed to be taking her anti-inflammatory prior to her surgery, is requesting something stronger while here in the ED. Patient is given 1 dose of oral tramadol here, she is not driving. Recommended PCP follow-up care and continue on with her surgical plan. Discharged home in stable condition with computer instructions given. DIAGNOSTIC IMPRESSION: #1 sacral contusion ROX Martinez 09/19/23 1417 [facility] Work Phone: 1(517) 743-533906-25-2024 Hospital Discharge instructions Patient Education 09/17/2023 17:50:54 [...] numbers. This can be done either in [place] ([place] or metric measurements. Note that charts and online BMI calculators are available to help you find your BMI quickly and easily without having to do these calculations yourself. To calculate your BMI in [place] ([place] measurements: 1.Measure your weight in pounds [...] Centers for Disease Control and Prevention: www.cdc.gov [place] [employer]: www.heart.org National Heart, Lung, and Blood [place]: www.nhlbi.nih.gov Summary Body mass index (BMI) is a number that is calculated from a person's weight and height. BMI may help estimate how much of a person's weight is composed of fat. BMI can help identify thosewho may be at higher risk for certain medical problems. BMI can be measured using Malagasy measurements or metric measurements. BMI charts are used to identify whether you are underweight, normal weight, overweight, or obese. This information is not intended to replace advice given to you by your health care provider. Make sure you discuss any questions you have with your health care provider. Document Revised: 12/02/2019 Document Reviewed: 10/09/2019 [employer] Patient Education 2022 [employer]. 09/17/2023 17:50:52 Steps to Quit Smoking Steps [...] require a prescription. You can also purchase oyec-pbq-sxdryeo medicines. Medicines may have nicotine in them [...] and encouragement. Call telephone quitlines, such as 7-714-AFRR-NOW, reach out to support groups, or work [...] provider. Document Revised: 03/02/2022 Document Reviewed: 03/02/2022 [employer] Patient Education 2022 [employer]. 09/17/2023 17:50:51 Health Risks of Smoking Health [...] Department of Health and Human Services: www.smokefree.gov [employer]: www.freedomfromsmoking.org [place] Heart Association: www.heart.org Where to find more [...] provider. Document Revised: 03/13/2022 Document Reviewed: 03/13/2022 [employer] Patient Education 2022 [employer]. Follow Up Care 09/17/2023 17:37:01 With:Ralph BEYER, Mayra Cantu [facility] Address: [facility] [address], [facility] [place] [id number]- When: Unknown [facility] 06-24-2024 Emergency department Note* Germaine Blair PA-C - 09/16/2023 4:09 PM EDT Patient is a 48 y/o female who presents with a chief complaint of lower back pain and right elbow pain. Patient states that pain started today at 8am as she was pulling a trash bag that was around 8lbs. Patient states she broke her RT arm decades ago, denied any surgeries. Elbow pain radiates to the forearm/thumb, intermittent, sharp, worse with extending. Back pain is throbbing in nature, does not radiate, nothing making it better or worse. States that she is scheduled for a electro stimulatorplacement for her chronic back pain on 09/22. States that she has been dealing with back issue for around x 1 year, was told she has bulging herniated L4-L5, and follows up with neurosurgery. Review of Systems Constitutional: Negative for chills and fever. HENT: Negative for ear pain and sore throat. Eyes: Negative for pain and visual disturbance. Respiratory: Negative for cough and shortness of breath. Cardiovascular: Negative for chest pain and palpitations. Gastrointestinal: Negative for abdominal pain and vomiting. Genitourinary: Negative for dysuria and hematuria. Musculoskeletal: Negative for arthralgias and back pain. Elbow pain Skin: Negative for color change and rash. Neurological: Negative for seizures and syncope. All other systems reviewed and are negative. Physical Exam Vitals and nursing note reviewed. Constitutional: General: She is not in acute distress. Appearance: She is well-developed. HENT: Head: Normocephalic and atraumatic. Eyes: Conjunctiva/sclera: Conjunctivae normal. Cardiovascular: Rate and Rhythm: Normal rate and regular rhythm. Heart sounds: No murmur heard. Pulmonary: Effort: Pulmonary effort is normal. No respiratory distress. Breath sounds: Normal breath sounds. Abdominal: Palpations: Abdomen is soft. Tenderness: There is no abdominal tenderness. Musculoskeletal: General: No swelling. Right elbow: No swelling, deformity, effusion or lacerations. Decreased range of motion. Tendernesspresent. Cervical back: Neck supple. Lumbar back: Tenderness present. No swelling, edema, deformity, signs of trauma, lacerations, spasms or bony tenderness. Normal range of motion. No scoliosis. Skin: General: Skin is warm and dry. Capillary Refill: Capillary refill takes less than 2 seconds. Neurological: Mental Status: She is alert. Psychiatric: Mood and Affect: Mood normal. Labs Reviewed - No data to display XR elbow right 3+ views Final Result No acute bony abnormalities. Signed by Johan Connor MD Procedures Medical Decision Making Patient is a 48-year-old female who presents to the emergency room with a chief complaint of right elbow pain and lower back pain after lifting a trash out of a trash can today. X-ray of the left elbow shows no acute abnormality. No x-ray of the lumbar spine was performed as patient has chronic back pain and there was no direct trauma to her back. She denies any signs of cauda equina. Patient was treated for her pain. Bladimir wrap was applied to the right elbow. Patient instructed to follow-up withorthopedics for her right elbow and along with her spinal surgeon for her low back pain in which she states that she is to have a spinal stimulator placed in the near future. Differential diagnosis includes fracture, sprain, strain, dislocation, contusion Amount and/or Complexity of Data Reviewed Radiology: ordered and independent interpretation performed. Decision-making details documented in ED Course. Details: X- ray of the right shoulder shows no fracture or dislocation Diagnoses as of 09/16/23 746 Elbow sprain, right, initial encounter Acute exacerbation of chronic low back pain Germaine Manocchio, PA-C 09/16/23 8401 [facility]: 1(454) 816-730106-24-2024 Physician Emergency department Note* Germaine Blair PA-C - 09/16/2023 4:09 PM EDT Patient is a 48 y/o female who presents with a chief complaint of lower back pain and right elbow pain. Patient states that pain started today at 8am as she was pulling a trash bag that was around 8lbs. Patient states she broke her RT arm decades ago, denied any surgeries. Elbow pain radiates to the forearm/thumb, intermittent, sharp, worse with extending. Back pain is throbbing in nature, does not radiate, nothing making it better or worse. States that she is scheduled for a electro stimulatorplacement for her chronic back pain on 09/22. States that she has been dealing with back issue for around x 1 year, was told she has bulging herniated L4-L5, and follows up with neurosurgery. Review of Systems Constitutional: Negative for chills and fever. HENT: Negative for ear pain and sore throat. Eyes: Negative for pain and visual disturbance. Respiratory: Negative for cough and shortness of breath. Cardiovascular: Negative for chest pain and palpitations. Gastrointestinal: Negative for abdominal pain and vomiting. Genitourinary: Negative for dysuria and hematuria. Musculoskeletal: Negative for arthralgias and back pain. Elbow pain Skin: Negative for color change and rash. Neurological: Negative for seizures and syncope. All other systems reviewed and are negative. Physical Exam Vitals and nursing note reviewed. Constitutional: General: She is not in acute distress. Appearance: She is well-developed. HENT: Head: Normocephalic and atraumatic. Eyes: Conjunctiva/sclera: Conjunctivae normal. Cardiovascular: Rate and Rhythm: Normal rate and regular rhythm. Heart sounds: No murmur heard. Pulmonary: Effort: Pulmonary effort is normal. No respiratory distress. Breath sounds: Normal breath sounds. Abdominal: Palpations: Abdomen is soft. Tenderness: There is no abdominal tenderness. Musculoskeletal: General: No swelling. Right elbow: No swelling, deformity, effusion or lacerations. Decreased range of motion. Tendernesspresent. Cervical back: Neck supple. Lumbar back: Tenderness present. No swelling, edema, deformity, signs of trauma, lacerations, spasms or bony tenderness. Normal range of motion. No scoliosis. Skin: General: Skin is warm and dry. Capillary Refill: Capillary refill takes less than 2 seconds. Neurological: Mental Status: She is alert. Psychiatric: Mood and Affect: Mood normal. Labs Reviewed - No data to display XR elbow right 3+ views Final Result No acute bony abnormalities. Signed by Johna Connor MD Procedures Medical Decision Making Patient is a 48-year-old female who presents to the emergency room with a chief complaint of right elbow pain and lower back pain after lifting a trash out of a trash can today. X-ray of the left elbow shows no acute abnormality. No x-ray of the lumbar spine was performed as patient has chronic back pain and there was no direct trauma to her back. She denies any signs of cauda equina. Patient was treated for her pain. Bladimir wrap was applied to the right elbow. Patient instructed to follow-up withorthopedics for her right elbow and along with her spinal surgeon for her low back pain in which she states that she is to have a spinal stimulator placed in the near future. Differential diagnosis includes fracture, sprain, strain, dislocation, contusion Amount and/or Complexity of Data Reviewed Radiology: ordered and independent interpretation performed. Decision-making details documented in ED Course. Details: X- ray of the right shoulder shows no fracture or dislocation Diagnoses as of 09/16/231745 Elbow sprain, right, initial encounter Acute exacerbation of chronic low back pain Germaine Blair PA-C 09/16/231745 [facility] Work Phone: 1(979) 499-807906-18-2024 Hospital Discharge instructions Patient Education 09/09/2023 23:26:42 Chronic Back Pain, Jttx-rf-Sqfa Chronic Back Pain When back pain lasts [...] pull them backward. 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 [...] prescription pain medicine, or muscle relaxants. Take angx-nvz-ktccovi and prescription medicines only as told by your doctor. Ask your doctor if the medicine prescribed to you: ?Requires you to avoid driving or using machinery. ?Can cause trouble pooping (constipation). You may need to take these actions to prevent or treat trouble pooping: ?Drink enough fluid to keep your pee (urine) pale yellow. ?Take ucyc-psw-iuophys or prescription medicines. ?Eat foods that are [...] provider. Document Revised: 04/20/2020 Document Reviewed: 04/20/2020 [employer] Patient Education 2022 [employer]. 09/09/2023 23:26:42 Acute Back Pain, Adult Acute [...] home: Managing pain, stiffness, and swelling Take pgka-efq-vamztqm and prescription medicines only as told by [...] each day. 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 Take zebb-vjf-vutuldq and prescription medicines only as told by your health care provider, and apply heat or ice as told. This information is not intended to replace advice given to you by your health care provider. Make sure you discuss any questions you have with your health care provider. Document Revised: 06/02/2021 Document Reviewed: 06/02/2021 [employer] Patient Education 2022 [employer]. Follow Up Care 09/09/2023 18:55:50 With:Mayra Rosas Address: [address] [place] [address] [place] [phone] [facility] (1) When:09/12/2023 Comments:Call Dr for diagnosis based follow up [facility]06-17-2024 Evaluation + Plan noteExtracted from: Title:ED NoteAuthor:Yaw MILES, Landon Hugo.Date:09/09/23 Chronic back pain (M54.9: Do rsalgia, unspecified) [...] Appointment Date:09/11/2023 09:00:00 AM Scheduled Provider:Ashia Simental Location:[facility] Appointment Type: Intake Appointment Date:11/13/2023 08:00:00 AM Scheduled Provider:Domenic Sher DO Location:[facility] Appointment Type:Pain Management - Follow Up (FT) Future Scheduled Tests Laboratory* TSH With T4fr Reflex 07/17/23 * Urinalysis with Micro 07/17/23 * Lipid Panel 07/17/23 * Drug Screen Urine 07/17/23 Radiology* MA Mamm Screen w/CAD if perf and 3D Kenan 07/17/23 [facility]06-14-2024 Evaluation + Plan noteExtracted from: Title:ED NoteAuthor:Matthew MILES, Zhane EnriquezDate:09/06/23 Headache, migraine (G43.909: Migraine, unspecified, not intractable, [...] Appointment Date:09/11/2023 09:00:00 AM Scheduled Provider:Ashia Simental Location:[facility] Appointment Type: Intake Appointment Date:11/13/2023 08:00:00 AM Scheduled Provider:Domenic Sher DO Location:.[facility] Appointment Type:Pain Management - Follow Up (FT) Future Scheduled Tests Laboratory* TSH With T4fr Reflex 07/17/23 * Urinalysis with Micro 07/17/23 * Lipid Panel 07/17/23 * Drug Screen Urine 07/17/23 Radiology* MA Mamm Screen w/CAD if perf and 3D Kenan 07/17/23 [facility]06-10-2024 Hospital Discharge instructions Patient Education 09/02/2023 19:03:31 [...] pull them backward. 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 [...] prescription pain medicine, or muscle relaxants. Take rpul-csz-xcjbeae and prescription medicines onlyas told by your health care provider. Ask your health care provider if the medicine prescribed to you: ?Requires you to avoid driving or using machinery. ?Can cause constipation. You may need to take these actions to prevent or treat constipation: ?Drink enough fluid to keep your urine pale yellow. ?Take weho-qkv-lrlpbxq or prescription medicines. ?Eat foods that are [...] provider. Document Revised: 04/20/2020 Document Reviewed: 04/20/2020 [employer] Patient Education 2022 [employer]. Follow Up Care 09/02/2023 17:51:01 With:Domenic Sher Address: [address] [place] [address]- Business (1) When:09/05/2023 18:28:26 With:Karm[employer]ama Address: [address] [place] [address]- Business (1) When:09/05/2023 18:28:19 With:Mayra Rosas Address: [address] [address]- Business (1) When:Within 3 Day(s) [facility]06-10-2024 Evaluation + Plan noteExtracted from: Title:ED NoteAuthor:Jorge Mcintosh DODate:09/02/23 Back pain (M54.9: Dorsalgia, unspecified) Orders: diazepam, 5 mg = 1 mL, Injection, IntraMuscular, Once, Stop date 09/02/23 18:30:00 EDT, STAT, Startdate 09/02/23 18:30:00 EDT, 09/02/23 18:30:00 EDT diflunisal, 500 mg = 1 tab(s), Oral, q12hr, # 20 tab(s), Refills(s) 0, Pharmacy: [facility]/pharmacy #[id number], 160, cm, 09/02/23 18:11:00 EDT, Height/Length Dosing, 115.5, kg, 09/02/23 18:11:00 EDT, Weight Dosing ketorolac, 60 mg = 2 mL, Injection, IntraMuscular, Once, Stop date 09/02/23 18:30:00 EDT, STAT, Start date 09/02/23 18:30:00 EDT, 09/02/23 18:30:00 EDT lidocaine topical, 1 patch(es), Topical, Daily, 7 patch(es), Refill(s) 0, apply 12 hours on and 12 hours off daily, [facility]/pharmacy #[id number], 160, cm, 09/02/23 18:11:00 EDT, Height/Length Dosing, 115.5, kg, 09/02/23 18:11:00 EDT, Weight Dosing methocarbamol, 750 mg = 1 tab(s), Oral, TID, X 7 day(s), # 21 tab(s), Refills(s) 0, Pharmacy: [facility]/pharmacy #[id number], 160, cm, 09/02/23 18:11:00 EDT, Height/Length Dosing, 115.5, kg, 09/02/23 18:11:00 EDT, Weight Dosing Future Appointments Appointment Date:09/11/2023 09:00:00 AM Scheduled Provider:Ashia Simental Location:[facility] Appointment Type: Intake Appointment Date:11/13/2023 08:00:00 AM Scheduled Provider:Domenic Sher DO Location:[facility] Appointment Type:Pain Management - Follow Up (FT) Future Scheduled Tests Laboratory* TSH With T4fr Reflex 07/17/23 * Urinalysis with Micro 07/17/23 * Lipid Panel 07/17/23 * Drug Screen Urine 07/17/23 Radiology* MA Mamm Screen w/CAD if perf and 3D Kenan 07/17/23 [facility]06-07-2024 Hospital Discharge instructions Patient Education 08/30/2023 19:01:28 Chronic Back Pain, Miqw-gm-Yrqd Chronic Back Pain When back pain lasts [...] pull them backward. 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 [...] prescription pain medicine, or muscle relaxants. Take rozh-muf-pxuxxss and prescription medicines only as told by your doctor. Ask your doctor if the medicine prescribed to you: ?Requires you to avoid driving or using machinery. ?Can cause trouble pooping (constipation). You may need to take these actions to prevent or treat trouble pooping: ?Drink enough fluid to keep your pee (urine) pale yellow. ?Take hbtq-zuw-eoofifj or prescription medicines. ?Eat foods that are [...] provider. Document Revised: 04/20/2020 Document Reviewed: 04/20/2020 [employer] Patient Education 2022 [employer] Follow Up Care 08/30/2023 18:12:14 With:Mayra Rincon FAM, MED Address: [address] [place] [address], [facility] A [address] [address]- When:09/02/2023 [facility]06-07-2024 Evaluation + Plan noteExtracted from: Title:ED NoteAuthor:Pati MILES, April PalenciaDate:08/30/23 1. Acute exacerbation of chr onic low back pain (M54.50: Low back pain, unspecified) Ordered: methylPREDNISolone, = 1 packet(s), Oral, As Directed, as directed on package labeling, X 6 day(s), # 21 tab(s), Refills(s) 0, Pharmacy: [facility]/pharmacy #[id number], 160, cm, 08/30/23 18:16:00 EDT, Height/Length Dosing, 115.5, kg, 08/30/23 18:16:00 EDT, Weight Dosing Other chronic pain (G89.29: Other chronic pain) Orders: ketorolac, 30 mg = 1 mL, Injection, IntraMuscular, Once, Stop date 08/30/23 19:00:00 EDT, STAT, Start date 08/30/23 19:00:00 EDT, 08/30/23 19:00:00 EDT morphine, 4 mg = 1 mL, Injection, IntraMuscular, Once, Stop date 08/30/23 19:00:00 EDT, STAT, Startdate 08/30/23 19:00:00 EDT, 08/30/23 19:00:00 EDT Future Appointments Appointment Date:09/11/2023 09:00:00 AM Scheduled Provider:Ashia Simental Location:[facility] Appointment Type: Intake Appointment Date:11/13/2023 08:00:00 AM Scheduled Provider:Domenic Sehr DO Location[facility] Appointment Type:Pain Management - Follow Up (FT) Future Scheduled Tests Laboratory* TSH With T4fr Reflex 07/17/23 * Urinalysis with Micro 07/17/23 * Lipid Panel 07/17/23 * Drug Screen Urine 07/17/23 Radiology* MA Mamm Screen w/CAD if perf and 3D Kenan 07/17/23 [facility]06-04-2024 History of Present illness Narrative* Chirag Reynoso, ELIZABETH-WAIVER ANALYST - 08/27/2023 1:00 PM EDT [facility] Neurosurgery Diagnosis Jerad Dee was [...] s/p successful perc thoracic SCS trial w/ Jacinda on 08/21/[address] 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 History of Present Illness [...] (hepatitis C virus) 2013 (in setting of [place] [facility]), treated with medication, seen by [...] perc thoracic lead, c/d/I. [facility] Phone: 1(762) 299-500405-29-2024 Hospital Note* Hospital Course - Tiff Story MD - 08/21/2023 6:11 AM EDT 48yF h/o chronic bilateral low back pain, neuropathic BLE pain (R>L), LL radiculopathy, HCV, GERD, depression, bipolar disorder, presenting for spinal cord stimulator trial. 08/20 s/p thoracic spinal stimulator lead placement for trial. On the day of discharge, patient was clinically stable from a neurosurgical perspective. [facility] Work Phone: [phone]) 152-641305-29-2024 Miscellaneous Notes* Hospital Course - Tiff Story MD - 08/21/2023 6:11 AM EDT 48yF h/o chronic bilateral low back pain, neuropathic BLE pain (R>L), LL radiculopathy, HCV, GERD, depression, bipolar disorder, presenting for spinal cord stimulator trial. 08/20 s/p thoracic spinal stimulator lead placement for trial. On the day of discharge, patient was clinically stable from a neurosurgical perspective. [facility] Work Phone: [phone]) 990-193205-25-2024 NoteEducation Materials Mental and Behavioral Health Chronic [...] skin (aromatherapy). Other treatments may include: ? Fjpy-wjd-tkftuvu or prescription medicines. ? Color, light, or sound therapy. ? Local electrical stimulation. The electrical pulses help to relieve pain by temporarily stopping the nerve impulses that cause you to feel pain. ? Injections. These deliver numbing or pain-relieving medicines into the spine or the area of pain. Medicines ? Take jqyo-rub-cdfgdgi and prescription medicines only as told by your health care provider. ? Ask your health care provider if the medicine prescribed to you: ? Requires you to avoid driving or using machinery. ? Can cause constipation. You may need to take these actions to prevent or treat constipation: ? Drink enough fluid to keep your urine pale yellow. ? Take chfq-oil-risezmh or prescription medicines. ? Eat foods that [...] the National Suicide Prevention Lifeline at or 169. This is open 24 hours a day. ? Text the Crisis Text Line at 640588. This information is not intended to replace advice given to you by your health care provider. Make sure you discuss any questions you have with your health care provider. Document Revised: 10/31/2022 Document Reviewed: 10/03/2022 Elsevier Patient Education ? 2022 [employer] Inc. Orthopedics Lumbosacral Strain A lumbosacral strain is an injury that causes pain in the lower back (lumbosacral spine). This injury usually happens from overstretching the muscles or ligaments along the spine. Ligaments are cord-l (more content not included)...[facility] [id number] Evaluation + Plan noteExtracted from: Title:ED NoteAuthor:Annette Watkins, Balbina HDate:08/16/23 1. Closed head injury (S09.9 0XA: Unspecified injury of head, initial encounter) 2. Muscle strain (T14.8XXA: Other injury of unspecified body region, initial encounter) Orders: acetaminophen, 650 mg = 2 tab(s), Tab, Oral, Once, Stop date 08/16/23 1:14:00 EDT, STAT, Start date08/16/23 1:14:00 EDT, 08/16/23 1:14:00 EDT cyclobenzaprine, 10 mg = 1 tab(s), Oral, TID, PRN for spasm, # 20 tab(s), Refills(s) 0, Pharmacy: [facility]/pharmacy #[id number], 160, cm, 08/15/23 22:27:00 EDT, Height/Length Dosing, 115.5, kg, 08/15/23 22:27:00 EDT, Weight Dosing CT Head or Brain w/o Contrast CT Spine Cervical w/o Contrast XR Spine Lumbosacral 2 or 3 Views XR Spine Thoracic 3 Views Future Appointments Appointment Date:09/11/2023 09:00:00 AM Scheduled Provider:Ashia Simental Location:[facility] Appointment Type: Intake Appointment Date:11/13/2023 08:00:00 AM Scheduled Provider:Domenic Sher DO Location:[facility] Appointment Type:Pain Management - Follow Up (FT) Future Scheduled Tests Laboratory* TSH With T4fr Reflex 07/17/23 * Urinalysis with Micro 07/17/23 * Lipid Panel 07/17/23 * Drug Screen Urine 07/17/23 Radiology* MA Mamm Screen w/CAD if perf and 3D Kenan 07/17/23 [facility]05-24-2024 Hospital Discharge instructions Patient Education 08/16/2023 01:25:49 [...] treated? This condition is initially treated with LUBIN therapy. This therapy involves: Protecting the muscle [...] is not too tight. General instructions Take ddjx-ixr-wiytbgk and prescription medicines only as told by [...] far. This condition is initially treated with LUBIN therapy, which involves protecting, resting, icing, compressing, and elevating. Gentle movements may be allowed. If physical therapy was prescribed, do exercises as told by your health care provider. This information is not intended to replace advice given to you by your health care provider. Make sure you discuss any questions you have with your health care provider. Document Revised: 05/29/2021 Document Reviewed: 05/29/2021 [employer] Patient Education 2022 [employer] 08/16/2023 01:25:49 Head Injury, Adult Head Injury, [...] Ask your health care provider for a cuuh-gd-mgjy plan for gradually returning to activities. Ask [...] your friends, family, a trusted colleague, and kitchen worker about your injury, symptoms, and restrictions. Have them watch for any new or worsening problems. General instructions Take fpin-jqe-zhrpwhf and prescription medicines only as told by [...] provider. Document Revised: 01/22/2020 Document Reviewed: 01/22/2020 [employer] Patient Education 2022 [employer]. Follow Up Care 08/15/2023 22:16:33 With:Occupational Health: [facility] [phone] Address:Unknown When:08/19/2023 Comments:Return to the emergency room if your headache gets worse, vomiting, your pain gets worse or any newsymptoms. [facility]05-22-2024 Evaluation + Plan noteExtracted from: Title:chronic painAuthor:Domenic Sher DO.Date:08/14/23 Patient is presenting with h istory of [...] not worked in the past. It appears weare very limited on medications and I do not believe that opioid-based therapy would be the most appropriate treatment [...] does for her before considering other interventions asI feel that this therapy may be very effective for her Patient was counseled on the above diagnosis and treatment, all questions were answered and patientagrees to adhere to the plan above. Risk [...] Appointment Date:09/11/2023 09:00:00 AM Scheduled Provider:Ashia Simental Location:[facility] Appointment Type: Intake Appointment Date:11/13/2023 08:00:00 AM Scheduled Provider:Domenic Sher DO Location:[facility] Appointment Type:Pain Management - Follow Up (FT) Future Scheduled Tests Laboratory* TSH With T4fr Reflex 07/17/23 * Urinalysis with Micro 07/17/23 * Lipid Panel 07/17/23 * Drug Screen Urine 07/17/23 Radiology* MA Mamm Screen w/CAD if perf and 3D Kenan 07/17/23 [facility]-21-2024 Hospital Discharge instructions Patient Education 08/12/2023 22:33:51 General Headache Without Cause, Hgcd-fi-Tmju General Headache Without Cause A headache is pain or discomfort you feel around the head or neck area. There are many causes and types of headaches. In some cases, the cause may not be found. Follow these instructions at home: Watch your condition for any changes. Let your doctor know about them. Take these steps to help with your condition: Managing pain Take jvdp-ogl-jnhydce and prescription medicines only as told by [...] provider. Document Revised: 08/09/2021 Document Reviewed: 08/09/2021 [employer] Patient Education 2022 [employer] Follow Up Care 08/12/2023 20:18:09 With:Mayra Rosas Address: [address], [facility] [address] [address] Business (1) When:08/15/2023 Comments:You can use the medications as prescribed as needed for pain. Please follow-up with your primary care doctor in the next 2 to 3 days for further evaluation and management. Please return to the ED forany new or worsening symptoms. [facility]05-20-2024 Evaluation + Plan noteExtracted from: Title:ED NoteAuthor:Elisa Sánchez DO ADate:08/12/23 Headache (R51.9: Headache, u nspecified) Orders: APAP/butalbital/caffeine, [...] q6hr, # 12 tab(s), Refills(s) 0, Pharmacy: [id number], 160, cm, 08/12/23 20:54:00 EDT, Height/Length Dosing, 114.7, kg, 08/12/23 20:54:00 EDT, Weight Dosing metoclopramide, 10 mg = 2 mL, Injection, IntraMuscular, Once, Stop date 08/12/23 21:52:00 EDT, STAT, Start date 08/12/23 21:52:00 EDT, 08/12/23 21:52:00 EDT Future Appointments Appointment Date:08/14/2023 03:15:00 PM Scheduled Provider:Domenic Sher DO Location:.[facility] Appointment Type:Pain Management - Follow Up (FT) Future Scheduled Tests Laboratory* TSH With T4fr Reflex 07/17/23 * Urinalysis with Micro 07/17/23 * Lipid Panel 07/17/23 * Drug Screen Urine 07/17/23 Radiology* MA Mamm Screen w/CAD if perf and 3D Kenan 07/17/23 [facility]05-17-2024 Emergency department Note* Yarelis Finley RN - 08/09/2023 11:14 PM EDT Discharge instructions, medications and follow up discussed with patient with patient's understanding verbalized. Patient left the department in no acute distress. [id number]* Yarelis Finley RN - 08/09/2023 11:14 PM EDT Discharge instructions, medications and follow up discussed with patient with patient's understanding verbalized. Patient left the department in no acute distress. * Keke Payne MD - 08/09/2023 10:43 PM EDT [facility] Keke Payne MD Attending [...] lumbar surgery in 2 weeks at [facility]. She just had a 3- hour [...] respirations even and unlabored. documented in this encounterOhio [facility] [id number] Physician Emergency department Note* Keke Payne MD - 08/09/2023 10:43 PM EDT [facility] Keke Payne MD Attending [...] lumbar surgery in 2 weeks at [facility]. She just had a 3- hour [...] Right-sided lower back pain with radicular pain [employer] Phone: 1(102) 707-106305-17-2024 Hospital Discharge instructions* Discharge Instructions* Courtney Robison MD - 08/09/2023 10:39 PM EDT Dear Jerad Tracy, Thank you for allowing me and the rest of the Emergency Department staff at the [facility] Emergency Department to care for you [...] can call your insurance company or call [employer] at [phone] for assistance in finding a doctor. If [...] assistance with paying for medications, please visit https://www.MMIT/ where you can find the best prices for prescription and tnkj-oou-isfyslq medications. Wishing you a speedy recovery, Courtney Robison MD documented in this encounterOhio [facility] [id number] Emergency department Note* Juan Gustafson RN - 08/09/2023 9:42 PM EDT Patient arrives through triage for complaints of chronic back pain that is worsened by a 3.[address]. Endorses history of L 4-5 disc herniation. A/O x4 with respirations even and unlabored. [id number] Hospital Discharge instructions Patient Education 08/05/2023 21:13:19 Chronic Back Pain, Atfh-oc-Bfcf Chronic Back Pain When back pain lasts [...] pull them backward. 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 [...] prescription pain medicine, or muscle relaxants. Take coer-hax-kgstweu and prescription medicines only as told by your doctor. Ask your doctor if the medicine prescribed to you: ?Requires you to avoid driving or using machinery. ?Can cause trouble pooping (constipation). You may need to take these actions to prevent or treat trouble pooping: ?Drink enough fluid to keep your pee (urine) pale yellow. ?Take wjjj-afu-pohrjyb or prescription medicines. ?Eat foods that are [...] provider. Document Revised: 04/20/2020 Document Reviewed: 04/20/2020 [employer] Patient Education 2022 [employer]. 08/05/2023 21:13:19 Acute Back Pain, Adult Acute [...] home: Managing pain, stiffness, and swelling Take vmtu-eyc-jcxvtqk and prescription medicines only as told by [...] each day. 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 Take jfsa-eta-agfthgt and prescription medicines only as told by your health care provider, and apply heat or ice as told. This information is not intended to replace advice given to you by your health care provider. Make sure you discuss any questions you have with your health care provider. Document Revised: 06/02/2021 Document Reviewed: 06/02/2021 [employer] Patient Education 2022 [employer]. Follow Up Care 08/05/2023 20:12:52 With:ELKE ADAMS Address: [facility] [address] [address] [address] [place] [address]- [phone] Business (1) When:08/08/2023 20:41:09 Comments:Call for diagnosis based follow up With:Mayra Rosas Address: [address], [address] [address]- Business (1) When:08/08/2023 20:40:39 Comments:Call for diagnosis based follow up [facility]05-13-2024 Evaluation + Plan noteExtracted from: Title:ED NoteAuthor:Yaw MILES, Landon Hugo.Date:08/05/23 Lumbago (M54.50: Low back pa in, unspecified) Orders: acetaminophen-oxycodone, 1 tab(s), Oral, q4hr for pain for 3 day(s), 12 tab(s), Refill(s) 0, [id number], 160, cm, 08/05/23 20:18:00 EDT, Height/Length Dosing, [...] Appointment Date:08/07/2023 08:00:00 AM Scheduled Provider:Ashia Simental Location:[facility] Appointment Type: Intake Appointment Date:08/14/2023 03:15:00 PM Scheduled Provider:Domenic Sher DO Location[facility] Appointment Type:Pain Management - Follow Up (FT) Future Scheduled Tests Laboratory* TSH With T4fr Reflex 07/17/23 * Urinalysis with Micro 07/17/23 * Lipid Panel 07/17/23 * Drug Screen Urine 07/17/23 Radiology* MA Mamm Screen w/CAD if perf and 3D Kenan 07/17/23 [facility]-10-2024 Hospital Discharge instructions Patient Education 08/02/2023 14:19:18 [...] home: Managing pain, stiffness, and swelling Take sufl-wib-gmsdimr and prescription medicines only as told by [...] each day. 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 Take maen-hyi-tbfyvws and prescription medicines only as told by your health care provider, and apply heat or ice as told. This information is not intended to replace advice given to you by your health care provider. Make sure you discuss any questions you have with your health care provider. Document Revised: 06/02/2021 Document Reviewed: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 Evaluation + Plan noteExtracted from: Title:ED NoteAuthor:Kristie Boss PA-CDate:06/27/23 1. Chronic left-sided lumbar radiculopathy (M54.16: Radiculopathy, lumbar region) 2. Herniated intervertebral disc of lumbar spine (M51.26: Other intervertebral disc displacement, lumbar region) Orders: acetaminophen-oxycodone, 1 tab(s), Tab, Oral, Once, Stop date 06/27/23 12:32:00 EDT, STAT, Start date 06/27/23 12:32:00 EDT ibuprofen, 600 mg = 1 tab(s), Oral, q6hr, Pt is to start this after she has completed the course ofprednisone, # 40 tab(s), Refills(s) 0, [id number], cm, 06/27/23 11:54:00 EDT, Height/Length [...] days., # 18 tab(s), Refills(s) 0, [id number], cm, 06/27/23 11:54:00 EDT, Height/Length Dosing, 117.2, kg, 06/27/23 11:5... tizanidine, 4 mg = 1 tab(s), Oral, q6hr, PRN Muscle pain, # 40 tab(s), Refills(s) 0, [id number], cm, 06/27/23 11:54:00 EDT, Height/Length Dosing, 117.2, kg, 06/27/23 11:54:00 EDT, Weight Dosing Future Appointments Appointment Date:07/17/2023 07:40:00 AM Scheduled Provider:Mayra Rincon Location:[facility] Appointment Type:FM New Patient - Adult [facility]04-01-2024 Evaluation + Plan noteExtracted from: Title:ED NoteAuthor:Annette Watkins, Balbina HDate:06/24/23 1. Chronic lower back pain ( M54.50: [...] Future Appointments Appointment Date:07/17/2023 07:40:00 AM Scheduled Provider:Mayra Rincon Location:[facility] Appointment Type:FM New Patient - Adult [facility]04-01-2024 Hospital Discharge instructions Patient Education 06/24/2023 11:56:52 [...] pull them backward. 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 [...] prescription pain medicine, or muscle relaxants. Take ioye-bur-tljdoiv and prescription medicines onlyas told by your health care provider. Ask your health care provider if the medicine prescribed to you: ?Requires you to avoid driving or using machinery. ?Can cause constipation. You may need to take these actions to prevent or treat constipation: ?Drink enough fluid to keep your urine pale yellow. ?Take nmnp-sdl-qbuukui or prescription medicines. ?Eat foods that are [...] provider. Document Revised: 04/20/2020 Document Reviewed: 04/20/2020 [employer] Patient Education 2022 [employer]. Follow Up Care 06/24/2023 09:43:03 With:Mayra Rosas Address: [facility] [address], [facility] [address] [place] [id number] [facility] (1) When:06/27/2023 11:48:27 Comments:Follow-up with your primary doctor and your back specialist. Return to the emergency room if your pain gets worse or any new symptoms. [facility]03-30-2024 Hospital Discharge instructions Patient Education 06/22/2023 18:48:41 Viral Gastroenteritis, Adult, Qatk-ug-Cvob Viral Gastroenteritis, Adult Viral gastroenteritis is also [...] younger than 2 years. Living in a custodial. Going on cruise ships. What are the [...] cannot use soap and water, 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 Make sure that all people in your home wash their hands well and often. Take dxyk-djq-kadcuqk and prescription medicines only as told by [...] cannot use soap and water, 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 This information is not intended to replace advice given to you by your health care provider. Make sure you discuss any questions you have with your health care provider. Document Revised: 01/08/2022 Document Reviewed: 01/08/2022 [employer] Patient Education 2022 [employer]. Follow Up Care 06/22/2023 14:18:20 With:Mayra Rosas Address: [address] [place] [address] [place] [id number] [facility] (1) When:06/25/2023 18:47:46 Comments:Call the office of [...] weakness, or any new or worsening symptoms. [facility]03-30-2024 Evaluation + Plan noteExtracted from: Title:ED NoteAuthor:Susu Lamar PA-CDate:06/22/23 Acute gastroenteritis (K52.9 : Noninfective gastroenteritis and colitis, unspecified) Orders: dicyclomine, 10 mg = 1 cap(s), Oral, QID, PRN Other (see comment), For abdominal cramping, # 12 cap(s), Refills(s) 0, Pharmacy: [facility]/pharmacy #[id number], 160, cm, 06/22/23 14:24:00 EDT, Height/Length Dosing, 118.5, kg, 06/22/23 14:24:00 EDT, Weight Dosing dicyclomine, 20 mg = 1 tab(s), Tab, Oral, Once, Stop date 06/22/23 18:49:00 EDT, STAT, Start date 06/22/23 18:49:00 EDT, 06/22/23 18:49:00 EDT ondansetron, 4 mg = 1 tab(s), Oral, q8hr, PRN Nausea/Vomiting, # 12 tab(s), Refills(s) 0, Pharmacy:[facility]/pharmacy #[id number], 160, cm, 06/22/23 14:24:00 EDT, Height/Length Dosing, 118.5, kg, 06/22/23 14:24:00 EDT, Weight Dosing ondansetron, 4 mg = 1 tab(s), Tab-Dis, Oral, Once, Stop date 06/22/23 18:49:00 EDT, STAT, Start date 06/22/23 18:49:00 EDT, 06/22/23 18:49:00 EDT Future Appointments Appointment Date:07/17/2023 07:40:00 AM Scheduled Provider:Mayra Rincon Location:[facility] Appointment Type:FM New Patient - Adult [facility]03-23-2024 Hospital Discharge instructions Patient Education 06/15/2023 18:41:01 [...] pull them backward. 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 [...] prescription pain medicine, or muscle relaxants. Take bpvf-rjv-vdmcyor and prescription medicines onlyas told by your health care provider. Ask your health care provider if the medicine prescribed to you: ?Requires you to avoid driving or using machinery. ?Can cause constipation. You may need to take these actions to prevent or treat constipation: ?Drink enough fluid to keep your urine pale yellow. ?Take fyuv-aiv-lxrzpze or prescription medicines. ?Eat foods that are [...] provider. Document Revised: 04/20/2020 Document Reviewed: 04/20/2020 [employer] Patient Education 2022 [employer]. Follow Up Care 06/15/2023 17:57:51 With:Mayra Rosas Address: [address], [facility] A [address] [address] Business (1) When:06/18/2023 18:33:35 Comments:Return to the emergency room if your pain gets worse, bowel or bladder incontinence, numbness/tingling in the saddle/groin area or any new symptoms. [facility]03-23-2024 Emergency department Note* Germaine Lloyd, HOT BLASTER-WAIVER ANALYST - 06/15/2023 2:33 PM EDT Chief Complaint [...] ROX Martinez 06/15/23 1537 documented in this [facility] Work Phone: 1(297) 243-115003-23-2024 Physician Emergency department Note* ROX Martinez - [...] of chronic back pain ROX Martinez 06/15/23 7859 [facility] Work Phone: 1(748) 197-875003-23-2024 Evaluation + Plan noteExtracted from:Title: ED NoteAuthor:Balbina Bryant M.D. HDate:06/15/23 1. Chronic back pain (M54.9: Dorsalgia, unspecified) Other chronic pain (G89.29: Other chronic pain) Orders: ketorolac, 30 mg = 1 mL, Injection, IntraMuscular, Once, Stop date 06/15/23 18:23:00 EDT, STAT, Start date 06/15/23 18:23:00 EDT, 06/15/23 18:23:00 EDT methocarbamol, 1,500 mg = 2 tab(s), Oral, TID, X 7 day(s), # 42 tab(s), Refills(s) 0, Pharmacy: [facility]/pharmacy #[id number], 160, cm, 06/15/23 18:08:00 EDT, Height/Length Dosing, 118.5, kg, 06/15/23 18:08:00 EDT, Weight Dosing orphenadrine, 60 mg = 2 mL, Injection, IntraMuscular, Once, Stop date 06/15/23 18:23:00 EDT, STAT, Start date 06/15/23 18:23:00 EDT, 06/15/23 18:23:00 EDT Future Appointments Appointment Date:07/17/2023 07:40:00 AM Scheduled Provider:Mayra Rincon Location:[facility] Appointment Type:FM New Patient - Adult [facility]03-19-2024 Hospital Discharge instructions Patient Education 06/11/2023 20:11:42 Chronic Back Pain, Kxkz-un-Yvqk Chronic Back Pain When back pain lasts [...] pull them backward. 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 [...] prescription pain medicine, or muscle relaxants. Take ytlx-nam-sucyhji and prescription medicines only as told by your doctor. Ask your doctor if the medicine prescribed to you: ?Requires you to avoid driving or using machinery. ?Can cause trouble pooping (constipation). You may need to take these actions to prevent or treat trouble pooping: ?Drink enough fluid to keep your pee (urine) pale yellow. ?Take ujey-mpl-mibjvhp or prescription medicines. ?Eat foods that are [...] provider. Document Revised: 04/20/2020 Document Reviewed: 04/20/2020 [employer] Patient Education 2022 [employer]. Follow Up Care 06/11/2023 18:49:29 With:Mayra Rosas Address: [address] [place] [address] Business (1) When:06/14/2023 19:30:55 Comments:Take the steroids once daily and to complete the course. Use medications as prescribed as needed for pain. Please follow-up with your primary care doctor next 2 to 3 days. Please return to the ED forany new or worsening symptoms. [facility]03-19-2024 Evaluation + Plan noteExtracted from: Title:ED NoteAuthor:Elisa Sánchez DO ADate:06/11/23 Chronic back pain (M54.9: Do rsalgia, unspecified) Other chronic pain (G89.29: Other chronic pain) Orders: ketorolac, 30 mg = 1 mL, Injection, IntraMuscular, Once, Stop date 06/11/23 19:29:00 EDT, STAT, Start date 06/11/23 19:29:00 EDT, 06/11/23 19:29:00 EDT methocarbamol, 500 mg = 1 tab(s), Oral, TID, X 3 day(s), # 9 tab(s), Refills(s) 0, Pharmacy: [facility]/pharmacy #[id number], 160, cm, 06/11/23 19:00:00 EDT, Height/Length Dosing, 118.8, kg, 06/11/23 19:00:00 EDT, Weight Dosing morphine, 2 mg = 1 mL, Injection, IntraMuscular, Once, Stop date 06/11/23 19:29:00 EDT, STAT, Startdate 06/11/23 19:29:00 EDT, 06/11/23 19:29:00 EDT predniSONE, 50 mg = 1 tab(s), Oral, Daily, X 5 day(s), # 5 tab(s), Refills(s) 0, Pharmacy: [facility]/pharmacy #[id number], 160, cm, 06/11/23 19:00:00 EDT, Height/Length Dosing, 118.8, kg, 06/11/23 19:00:00 EDT, Weight Dosing predniSONE, 60 mg = 3 tab(s), Tab, Oral, Once, Stop date 06/11/23 19:29:00 EDT, STAT, Start date 06/11/23 19:29:00 EDT, 06/11/23:29:00 EDT Future Appointments Appointment Date:07/17/2023 07:40:00 AM Scheduled Provider:Mayra Rincon Location:[facility] Appointment Type:FM New Patient - Adult [facility]03-16-2024 Emergency department Note* Melody Perez RN - 06/08/2023 6:29 PM EDT Registration called for registration as pt has been up for discharge for 20 min. [id number]* Melody Perez RN - 06/08/2023 6:29 PM EDT [...] Discussed with attending who did evaluate patient zqdy-nz-astw, developed plan for pain control here, will be given fentanyl dose here with Zofran. Being prescription for Percocet. Encourage rest hydration outpatient follow-up as discussed, close return precautions if symptoms get worse. Did discuss with attending, Allyson Griffiths DO, who did evaluate patient lmpu-ii-vjyz. Patient otherwise stable at this time, vital [...] aggravated her pain more. documented in this encounterPrearer [id number] Hospital Discharge instructions* Discharge Instructions* Flex Jansen PA-C - 06/08/2023 5:58 PM EDT Medication as directed, beware may cause drowsiness. Rest and hydrate, follow-up with your doctors in the next few days, return as needed. * Attachments The following attachments cannot be sent through Care Everywhere. * Back Pain (Malagasy) documented in this encounterPrearer [id number] Physician Emergency department Note* Flex Jansen PA-C [...] Discussed with attending who did evaluate patient dbpl-jv-lwrq, developed plan for pain control here, will be given fentanyl dose here with Zofran. Being prescription for Percocet. Encourage rest hydration outpatient follow-up as discussed, close return precautions if symptoms get worse. Did discuss with attending, Allyson Griffiths DO, who did evaluate patient fkjy-qg-pxzb. Patient otherwise stable at this time, vital signs are stable, patient afebrile, and nontoxic in appearance.Attending physician available for immediate consultation throughout entire patient's stay. Decision to Disposition Home or Admit: Discharge FINAL IMPRESSION: 1. Bilateral low back pain [id number] Emergency department Note* Cheryl Joiner RN - 06/08/2023 5:39 PM EDT Pt arrives via triage for complaints of lower back apin. Pt states she has hx of bulging disc and states that she was in the car for a long time and thinks that it aggravated her pain more. [id number] History of Present illness Narrative* Elke Adams [...] y.o. 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 documented in this [facility] Work Phone: 1(428) 821-772503-11-2024 Hospital Discharge instructions Patient Education 06/03/2023 20:00:59 [...] home: Managing pain, stiffness, and swelling Take eoaq-iht-ncdrjbd and prescription medicines only as told by [...] each day. 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 Take rgdv-hsw-xxsrbbz and prescription medicines only as told by your health care provider, and apply heat or ice as told. This information is not intended to replace advice given to you by your health care provider. Make sure you discuss any questions you have with your health care provider. Document Revised: 06/02/2021 Document Reviewed: 06/02/2021 [employer] Patient Education 2022 [employer]. 06/03/2023 20:00:59 Chronic Back Pain, Yfnp-gc-Giew Chronic Back Pain When back pain lasts [...] pull them backward. 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 [...] prescription pain medicine, or muscle relaxants. Take hsvl-dwu-idzmqhr and prescription medicines only as told by your doctor. Ask your doctor if the medicine prescribed to you: ?Requires you to avoid driving or using machinery. ?Can cause trouble pooping (constipation). You may need to take these actions to prevent or treat trouble pooping: ?Drink enough fluid to keep your pee (urine) pale yellow. ?Take czld-kwj-vhpoumj or prescription medicines. ?Eat foods that are [...] provider. Document Revised: 04/20/2020 Document Reviewed: 04/20/2020 [employer] Patient Education 2022 [employer]. Follow Up Care 06/03/2023 18:58:41 With:Mayra Rosas Address: [address] [place] [address], [facility] [place] [id number] Business (1) When:06/06/2023 19:33:42 Comments:Follow-up with your primary care provider in 3 to 5 days. If symptoms worsen, do not improve, or new symptoms arise please report back to emergency department for further evaluation. [facility]03-11-2024 Evaluation + Plan noteExtracted from: Title:ED NoteAuthor:Yaw MILES, Landon Hugo.Date:06/03/23 Chronic back pain (M54.9: Do rsalgia, unspecified) Other chronic pain (G89.29: Other chronic pain) Orders: ibuprofen, 800 mg = 1 tab(s), Oral, q8hr, # 30 tab(s), Refills(s) 0, Pharmacy: [facility]/pharmacy #[id number], 160, cm, 03/23/23 12:50:00 EST, Height/Length Dosing, 109, kg, 03/23/23 12:50:00 EST, Weight Dosing ketorolac, 30 mg = 1 mL, Injection, IntraMuscular, Once, Stop date 06/03/23 19:31:00 EDT, STAT, Start date 06/03/23 19:31:00 EDT, 06/03/23 19:31:00 EDT morphine, 4 mg = 1 mL, Injection, IntraMuscular, Once, Stop date 06/03/23 19:30:00 EDT, STAT, Startdate 06/03/23 19:30:00 EDT, 06/03/23 19:30:00 EDT Future Appointments Appointment Date:06/13/2023 07:40:00 AM Scheduled Provider:Mayra Rincon Location:[facility] Appointment Type:FM New Patient - Adult [facility]03-08-2024 Hospital Discharge instructions Patient Education 05/31/2023 18:15:18 [...] Follow these instructions at home: Medicines Take ixkp-wnb-tsvvjtz and prescription medicines only as told by [...] Watch your condition for any changes. Take gwpt-nkz-qhlctvs and prescription medicines only as told by [...] provider. Document Revised: 04/29/2020 Document Reviewed: 07/20/2019 [employer] Patient Education 2022 [employer]. Follow Up Care 05/31/2023 16:33:31 With:Mayra Rosas Address: [address] [place] [address] [place], [facility] [place] [phone] Business (1) When:06/03/2023 18:09:48 [facility]03-03-2024 Hospital Discharge instructions Patient Education 05/26/2023 20:04:37 [...] Follow these instructions at home: Medicines Take srxo-poz-iatlyri and prescription medicines only as told by your health care provider. Ask your health care provider if the medicine prescribed to you: ?Requires you to avoid driving or using heavy machinery. ?Can cause constipation. You may need to take these actions to prevent or treat constipation: ?Drink enough fluid to keep your urine pale yellow. ?Take ewdz-hig-fbgufma or prescription medicines. ?Eat foods that are [...] provider. Document Revised: 06/18/2022 Document Reviewed: 08/04/2019 [employer] Patient Education 2022 [employer]. Follow Up Care 05/26/2023 19:25:03 With:Mayra Rincon, [facility] Address: [address], [address] [address]- When:05/29/2023 [facility]03-03-2024 Evaluation + Plan noteExtracted from: Title:ED NoteAuthor:Susu Lamar PA-CDate:05/26/23 1. Lumbar strain (S39.012A: Strain of muscle, fascia and tendon of lower back, initial encounter) Ordered: tizanidine, 4 mg = 1 tab(s), Oral, q8hr, X 5 day(s), # 15 tab(s), Refills(s) 0, Pharmacy: [facility]/pharmacy #[id number], 160, cm, 05/26/23 19:39:00 EST, [...] Future Appointments Appointment Date:06/13/2023 07:40:00 AM Scheduled Provider:Mayra Rincon Location:[facility] Appointment Type:FM New Patient - Adult [facility]03-01-2024 Hospital Discharge instructions Patient Education 05/24/2023 20:43:51 Chronic Back Pain, Nifj-na-Umxr Chronic Back Pain When back pain lasts [...] pull them backward. 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 [...] prescription pain medicine, or muscle relaxants. Take weup-ouz-cnacrmr and prescription medicines only as told by your doctor. Ask your doctor if the medicine prescribed to you: ?Requires you to avoid driving or using machinery. ?Can cause trouble pooping (constipation). You may need to take these actions to prevent or treat trouble pooping: ?Drink enough fluid to keep your pee (urine) pale yellow. ?Take qztn-zip-vgzcsqh or prescription medicines. ?Eat foods that are [...] provider. Document Revised: 04/20/2020 Document Reviewed: 04/20/2020 [employer] Patient Education 2022 [employer]. Follow Up Care 05/24/2023 18:42:41 With:Mayra Rosas Address: [facility] [address], [facility] [place] [phone] Business (1) When:Within 3 Day(s) [facility]03-01-2024 Evaluation + Plan noteExtracted from: Title:ED NoteAuthor:Yaw MILES, Landon GoveaDate:05/24/23 Lumbago (M54.50: Low back pa in, unspecified) Orders: ketorolac, 60 mg = 2 mL, Injection, IntraMuscular, Once, Stop date 05/24/23 20:27:00 EST, STAT, Start date 05/24/23 20:27:00 EST, 05/24/23 20:27:00 EST morphine, 4 mg = 1 mL, Injection, IntraMuscular, Once, Stop date 05/24/23 20:28:00 EST, STAT, Startdate 05/24/23 20:28:00 EST, 05/24/23 20:28:00 EST triamcinolone, 40 mg = 1 mL, Susp-Inj, IntraMuscular, Once, Stop date 05/24/23 20:28:00 EST, STAT, Start date 05/24/23 20:28:00 EST, 05/24/23 20:28:00 EST Future Appointments Appointment Date:06/13/2023 07:40:00 AM Scheduled Provider:Mayra Rincon Location:[facility] Appointment Type:FM New Patient - Adult [facility]02-26-2024 History of Present illness Narrative* Enrique Spivey, DO - 05/20/2023 8:15 AM ESTAssociated Order(s): Hand / UE Inj/Asp: R thumb CMC Post-Procedure Diagnose(s): CMC arthritis History present illness: Patient presents today for evaluation status post mechanical fall down 2 stairs that occurred on 11 May 2023. She was walking the dog in the snow. She slipped and fell. Poabi-wvsa-bffmkomk and otherwise healthy. She describes right radial [...] called to verify the correctpatient, procedure, equipment, patient support assistant and site/side marked as required. Patient was prepped and draped in the usual sterile fashion. documented in this [facility] Work Phone: 1(139) 987-713102-22-2024 Hospital Discharge instructions Patient Education 05/16/2023 17:04:02 [...] provider if you may use a hand printing shop supervisor to strengthen your muscles. If your thumb feels stiff while you are exercising it, try doing the exercises while soaking your hand in warm water. General instructions Take ltvs-hsy-jswnlhz and prescription medicines only as told by [...] provider. Document Revised: 01/17/2021 Document Reviewed: 01/17/2021 [employer] Patient Education 2022 [employer]. 05/16/2023 17:04:02 Cast or Splint Care, Adult [...] on part of yourbody. General instructions Take vwft-hgv-lropgqv and prescription medicines only as told by [...] provider. Document Revised: 09/05/2021 Document Reviewed: 09/05/2021 [employer] Patient Education 2022 [employer]. Follow Up Care 05/16/2023 16:17:01 With:Mayra Rosas Address: [facility] [address], [facility] A [address] [address] Business (1) When:05/19/2023 16:52:35 [facility]02-22-2024 Evaluation + Plan noteExtracted from: Title:ED NoteAuthor:Brandon MILES, JansenDate:05/16/23 Right hand fracture (S62.91X A: Unspecified fracture of right wrist and hand, initial encounter for closed fracture) Ordered: acetaminophen-oxycodone, 1 tab(s), Oral, q6hr as needed for pain for 3 day(s), 6 tab(s), Refill(s) 0, [id number], 160, cm, 05/16/23 16:22:00 EST, Height/Length Dosing, 115, kg, 05/16/23 16:22:00 EST, Weight Dosing Future Appointments Appointment Date:06/13/2023 07:40:00 AM Scheduled Provider:Mayra Rincon Location:[facility] Appointment Type:FM New Patient - Adult [facility]02-20-2024 Hospital Discharge instructions Patient Education 05/14/2023 12:06:20 [...] Follow these instructions at home: Medicines Take tubb-uhl-uspfasu and prescription medicines only as told by [...] for Headache and Migraine Patients (CHAMP): headachemigraine.org [place] Migraine Foundation: americanmigrainefoundation.org National Headache Foundation: headaches.org [...] provider. Document Revised: 04/27/2020 Document Reviewed: 04/27/2020 [employer] Patient Education 2022 [employer]. Follow Up Care 05/14/2023 10:21:04 With:Mayra Rosas Address: [address] [place] [address], [facility] [place] [phone] Business (1) When:05/17/2023 11:54:32 [facility]02-18-2024 Evaluation + Plan noteExtracted from: Title:ED NoteAuthor:Nikhil Tubbs DODate:05/12/23 Wrist fracture (S62.109A: Fr acture of unspecified carpal bone, unspecified wrist, initial encounter for closed fracture) Ordered: oxycodone, 5 mg = 1 cap(s), Oral, q6hr, PRN Pain 8-10, # 9 cap(s), Refills(s) 0, Pharmacy: [facility]/pharmacy #[id number], 160, cm, 05/12/23 10:26:00 EST, Height/Length Dosing, 114.8, kg, 05/12/23 10:26:00 EST, Weight Dosing Orders: acetaminophen-oxycodone, 1 tab(s), Tab, Oral, Once, Stop date 05/12/23 10:41:00 EST, STAT, Start date 05/12/23 10:41:00 EST Future Appointments Appointment Date:06/13/2023 07:40:00 AM Scheduled Provider:Mayra Rincon Location:[facility] Appointment Type:FM New Patient - Adult [facility]02-18-2024 Hospital Discharge instructions Patient Education 05/12/2023 10:45:04 [...] is stable enough for you to begin jkhgp-lu-vpsuss exercises. You may also be prescribed pain [...] cast, splint, or sling on yourwrist. Do vxvan-mx-fvtfky exercises only as told by your health care provider or physical therapist. Medicines Take ekpz-bjp-ahmzdcl and prescription medicines only as told by your health care provider. Ask your health care provider if the medicine prescribed to you: ?Requires you to avoid driving or using machinery. ?Can cause constipation. You may need to take these actions to prevent or treat constipation: ?Drink enough fluid to keep your urine pale yellow. ?Take kdwv-ope-ahvkdoe or prescription medicines. ?Eat foods that are [...] provider. Document Revised: 06/21/2020 Document Reviewed: 06/21/2020 [employer] Patient Education 2022 [employer]. Follow Up Care 05/12/2023 10:19:15 With:Esvin Romero Address: [address] [place] [address] [facility] (1) When:05/15/2023 10:42:26 Comments:Follow-up with Dr. Romero in office.Take oxycodone as prescribed. You may take the 5 mg oxycodone tablet on top of your baseline Percocet for breakthrough pain from your fracture. [facility]02-17-2024 Hospital Discharge instructions Patient Education 05/11/2023 17:37:45 Wrist Fracture Treated With Immobilization, Gpuo-zm-Vqlx Wrist Fracture Treated With Immobilization A wrist [...] has healed enough, you may begin doing bplkz-sw-mvncce exercises. Follow these instructions at home: If [...] splint, or sling on your wrist. Do mbyjn-gj-vlscge exercises only as told by your doctor. Medicines Take teei-alt-uuzpkns and prescription medicines only as told by [...] provider. Document Revised: 06/21/2020 Document Reviewed: 06/21/2020 [employer] Patient Education 2022 [employer]. 05/11/2023 17:37:45 Cast or Splint Care, Adult, Dmnm-ym-Utjd Cast or Splint Care, Adult Casts and [...] part of your body. General instructions Take zinx-mnj-pszyckq and prescription medicines only as told by [...] provider. Document Revised: 09/05/2021 Document Reviewed: 09/05/2021 [employer] Patient Education 2022 [employer]. Follow Up Care 05/11/2023 16:21:24 With:Esvin Romero Address: [address] [place] [address]- Business (1) When:05/14/2023 17:17:09 Comments:Call Dr for diagnosis based follow up With:Mayra Rosas Address: [address], [address] [facility] [address] [place] [address]- Business (1) When:05/14/2023 17:17:07 [facility]02-14-2024 Hospital Discharge instructions Patient Education 05/08/2023 13:05:53 Abdominal Pain, Adult, Bkvj-bb-Rngm Abdominal Pain, Adult Many things can cause belly (abdominal) pain. Most times, belly pain is not dangerous. Many cases of belly pain can be watched and treated at home. Sometimes, though, belly pain is serious. Your doctor will try to find the cause of your belly pain. Follow these instructions at home: Medicines Take fhzh-wkn-malclax and prescription medicines only as told by [...] your belly pain for any changes. Take okbo-tjw-fsivtrt and prescription medicines only as told by [...] provider. Document Revised: 07/20/2019 Document Reviewed: 07/20/2019 [employer] Patient Education 2022 [employer] [employer] Follow Up Care 05/08/2023 11:25:27 With:Katharina Kidd Address: [address], [address] [place] [address]- [phone] Business (1) When:05/11/2023 12:34:39 With:Mayra Rosas Address: [address], [address] [place] [address]- Business (1) When:05/11/2023 12:34:31 Comments:Follow-up with your primary care provider in 3 to 5 days. If symptoms worsen, do not improve, or new symptoms arise please report back to emergency department for further evaluation. [facility]02-04-2024 Emergency department Note* Laurita Baires RN - 04/28/2023 12:39 AM EST Patient discharged to home, alert and oriented, skin warm, dry and pink. Denies needs and or questions. Will follow-up as directed, patient encouraged to return for worsening or new symptoms or otherconcerns. [id number] Emergency department Note* Laurita Baires RN - [...] injury or complaints. A&Ox4. documented in this encounterOhio State East HospitalLdqshu30-45-2580 Hospital Discharge instructions* Discharge Instructions* Sharan Hwang MD - 04/28/2023 12:28 AM EST Dear Jerad Tracy, Thank you for allowing me and the rest of the Emergency Department staff at the [facility] ED to care for you today. You [...] can call your insurance company or call [employer] at [phone] for assistance in finding a doctor. If [...] assistance with paying for medications, please visit [email or web address].MMIT/ where you can find the best prices for prescription and ujni-gke-yqdlnhf medications. Wishing you a speedy recovery, Sharan Hwang MD documented in this encounterOhio State East HospitalUnvjla86-39-5450 Emergency department Note* Laurita Baires RN - 04/28/2023 12:24 AM EST Pt ambulated to restroom with steady gait. Pt states her pain has improved and is now 5/10 and tolerable. Physician aware. [facility] [id number] Emergency department Note* Laurita Baires RN - 04/27/2023 11:26 PM EST To bedside for rounding. Pt medicated for 10/10 pain per MAY. Pt resting quietly. No other needs expressed at this time. Call light in reach. [facility] HospitalXckuzv17-90-0080 Emergency department Note* Laurita Baires RN - 04/27/2023 11:00 PM EST To bedside to introduce self to pt and address needs. Resident at bedside. Pt resting quietly. No needs expressed at this time. Call light within reach. [facility] [id number] Physician Emergency department Note* Sharan Hwang MD [...] Electronically signed by: Sharan Hwang MD, 04/28/2023 [facility] [id number] Emergency department Note* Rebecca Gómez RN - 04/27/2023 10:39 PM EST Patient arrives to triage stating she has a herniated L4-L5 disc, got on an inversion table tonightand is now having back pain. Denies any other injury or complaints. A&Ox4. [facility] [id number] Evaluation + Plan noteExtracted from:Title:ED Note Author:Annette Watkins, Balbina HDate:04/26/23 1. Chronic back pain (M54.9: Dorsalgia, unspecified) Other chronic pain (G89.29: Other chronic pain) Orders: ibuprofen, 800 mg = 1 tab(s), Oral, TID, # 30 tab(s), Refills(s) 0, Pharmacy: [facility]/pharmacy #[id number], 160, cm, 04/26/23 9:34:00 EST, Height/Length Dosing, 114.3, kg, 04/26/23 9:34:00 EST, Weight Dosing ketorolac, 60 mg = 2 mL, Injection, IntraMuscular, Once, Stop date 04/26/23 9:37:00 EST, STAT, Start date 04/26/23 9:37:00 EST, 04/26/23 9:37:00 EST morphine, 4 mg = 1 mL, Injection, IntraMuscular, Once, Stop date 04/26/23 9:38:00 EST, STAT, Start date 04/26/23 9:38:00 EST, 04/26/23 9:38:00 EST [facility]02-02-2024 Hospital Discharge instructions Patient Education 04/26/2023 10:11:06 [...] pull them backward. 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 [...] prescription pain medicine, or muscle relaxants. Take agql-hjr-gwjdwjr and prescription medicines onlyas told by your health care provider. Ask your health care provider if the medicine prescribed to you: ?Requires you to avoid driving or using machinery. ?Can cause constipation. You may need to take these actions to prevent or treat constipation: ?Drink enough fluid to keep your urine pale yellow. ?Take xptq-ozg-zqraxgu or prescription medicines. ?Eat foods that are [...] provider. Document Revised: 04/20/2020 Document Reviewed: 04/20/2020 [employer] Patient Education 2022 [employer]. Follow Up Care 04/26/2023 09:28:24 With:ANTONIO HUSAIN Address: [address] [place] [phone] Business (1) When:04/29/2023 10:05:29 Comments:Make sure to follow-up with your neurosurgeon as scheduled and your primary doctor. Return to the emergency room if your pain gets worse, bowel or bladder incontinence, numbness/tingling in the saddle/groin area, weakness in your leg or any new symptoms. [facility]01-29-2024 Hospital Discharge instructions Patient Education 04/22/2023 20:37:29 [...] home: Managing pain, stiffness, and swelling Take xtrc-kfk-pzbxaau and prescription medicines only as told by [...] each day. 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 Take dkdy-zsk-yqkrvpk and prescription medicines only as told by your health care provider, and apply heat or ice as told. This information is not intended to replace advice given to you by your health care provider. Make sure you discuss any questions you have with your health care provider. Document Revised: 06/02/2021 Document Reviewed: 06/02/2021 [employer] Patient Education 2022 [employer]. 04/22/2023 20:37:29 Chronic Back Pain, Kwvi-rh-Hxdu Chronic Back Pain When back pain lasts [...] pull them backward. 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 [...] prescription pain medicine, or muscle relaxants. Take sdzd-evo-pngkxat and prescription medicines only as told by your doctor. Ask your doctor if the medicine prescribed to you: ?Requires you to avoid driving or using machinery. ?Can cause trouble pooping (constipation). You may need to take these actions to prevent or treat trouble pooping: ?Drink enough fluid to keep your pee (urine) pale yellow. ?Take nrut-vcf-bgvtzax or prescription medicines. ?Eat foods that are [...] provider. Document Revised: 04/20/2020 Document Reviewed: 04/20/2020 [employer] Patient Education 2022 [employer]. Follow Up Care 04/22/2023 20:10:10 With:ANTONIO HUSAIN Address: [address] [place] [phone] Business (1) When:04/25/2023 20:23:39 Comments:Follow-up with your primary care provider in 3 to 5 days. If symptoms worsen, do not improve, or new symptoms arise please report back to emergency department for further evaluation. [facility]01-29-2024 Evaluation + Plan noteExtracted from: Title:ED NoteAuthor:Yaw MILES, Landon Hugo.Date:04/22/23 Lumbago (M54.50: Low back pa in, unspecified) Orders: ketorolac, 60 mg = 2 mL, Injection, IntraMuscular, Once, Stop date 04/22/23 20:20:00 EST, STAT, Start date 04/22/23 20:20:00 EST, 04/22/23 20:20:00 EST morphine, 4 mg = 1 mL, Injection, IntraMuscular, Once, Stop date 04/22/23 20:19:00 EST, STAT, Startdate 04/22/23 20:19:00 EST, 04/22/23 20:19:00 EST [facility]01-18-2024 Hospital Discharge instructions Patient Education 04/11/2023 19:08:19 [...] pull them backward. 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 [...] prescription pain medicine, or muscle relaxants. Take rean-tuy-dvtgljc and prescription medicines onlyas told by your health care provider. Ask your health care provider if the medicine prescribed to you: ?Requires you to avoid driving or using machinery. ?Can cause constipation. You may need to take these actions to prevent or treat constipation: ?Drink enough fluid to keep your urine pale yellow. ?Take yxnq-gvm-rbsxgvp or prescription medicines. ?Eat foods that are [...] provider. Document Revised: 04/20/2020 Document Reviewed: 04/20/2020 [employer] Patient Education 2022 [employer] Follow Up Care 04/11/2023 18:29:24 With:ANTONIO HUSAIN Address: [address] [place] [phone] Business (1) When:04/14/2023 18:58:52 [facility]01-18-2024 Evaluation + Plan noteExtracted from: Title:ED NoteAuthor:Brandon MILES, JansenDate:04/11/23 Chronic back pain (M54.9: Do rsalgia, unspecified) Other chronic pain (G89.29: Other chronic pain) Orders: ketorolac, 60 mg = 2 mL, Injection, IntraMuscular, Once, Stop date 04/11/23 18:56:00 EST, STAT, Start date 04/11/23 18:56:00 EST, 04/11/23 18:56:00 EST oxycodone, 10 mg = 2 tab(s), Tab, Oral, Once, Stop date 04/11/23 18:57:00 EST, STAT, Start date 04/11/23 18:57:00 EST, 04/11/23 18:57:00 EST [facility]01-18-2024 Hospital Discharge instructions Patient Education 04/11/2023 01:37:11 Chronic Back Pain, Ylzv-pl-Ifpj Chronic Back Pain When back pain lasts [...] pull them backward. 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 [...] prescription pain medicine, or muscle relaxants. Take iijh-sdg-pmnjugm and prescription medicines only as told by your doctor. Ask your doctor if the medicine prescribed to you: ?Requires you to avoid driving or using machinery. ?Can cause trouble pooping (constipation). You may need to take these actions to prevent or treat trouble pooping: ?Drink enough fluid to keep your pee (urine) pale yellow. ?Take rtty-msv-ntradgf or prescription medicines. ?Eat foods that are [...] provider. Document Revised: 04/20/2020 Document Reviewed: 04/20/2020 [employer] Patient Education 2022 [employer]. 04/11/2023 01:37:11 Acute Back Pain, Adult Acute [...] home: Managing pain, stiffness, and swelling Take cusm-ioc-goibwzb and prescription medicines only as told by [...] each day. 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 Take ladt-bbt-bvcaeeb and prescription medicines only as told by your health care provider, and apply heat or ice as told. This information is not intended to replace advice given to you by your health care provider. Make sure you discuss any questions you have with your health care provider. Document Revised: 06/02/2021 Document Reviewed: 06/02/2021 [employer] Patient Education 2022 [employer]. Follow Up Care 04/10/2023 22:03:35 With:ANTONIO HUSAIN Address: [address] [place] [phone] Business (1) When:Within 3 Day(s) [facility]01-12-2024 Hospital Discharge instructions Patient Education 04/05/2023 15:51:34 [...] organ transplant that was done in the [place] before 1991. What increases the risk? [...] Follow these instructions at home: Medicines Take ffnd-veh-nnoceod and prescription medicines only as told by your health care provider. If you were prescribed an antiviral medicine, take it as told by your health care provider. Do not stop using the antiviral even if you start to feel better. Do not take any new medicines, including vmqm-bmc-jqfzevj medicines or supplements, unless your health care [...] water are not available, use alcohol-based hand 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 Cover any cuts or open sores on [...] contagious). Do not take any medicines, including gamm-diw-sptyjmy medicines or supplements, unless your health care provider approves. This information is not intended to replace advice given to you by your health care provider. Make sure you discuss any questions you have with your health care provider. Document Revised: 01/26/2021 Document Reviewed: 01/26/2021 [employer] Patient Education 2022 [employer]. 04/05/2023 15:51:34 Abdominal Pain, Adult Abdominal Pain, [...] Follow these instructions at home: Medicines Take fnsx-cwp-ecpnzpx and prescription medicines only as told by [...] Watch your condition for any changes. Take agmf-rqq-qatkfkn and prescription medicines only as told by [...] provider. Document Revised: 04/29/2020 Document Reviewed: 07/20/2019 [employer] Patient Education 2022 [employer]. Follow Up Care 04/05/2023 12:31:48 With:ANTONIO HUSAIN Address: [address] [place] [phone] Business (1) When:04/08/2023 15:38:51 [facility]01-12-2024 Evaluation + Plan noteExtracted from: Title:ED NoteAuthor:Brandon MILES, JansenDate:04/05/23 Abdominal pain (R10.9: Unspe cified abdominal pain) [...] date 04/05/23 13:07:00 EST, 04/05/23 13:07:00 EST [facility]01-10-2024 Hospital Discharge instructions Patient Education 04/02/2023 22:19:34 Chronic Back Pain, Smil-jz-Tjxc Chronic Back Pain When back pain lasts [...] pull them backward. 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 [...] prescription pain medicine, or muscle relaxants. Take umoz-ceb-txlqjri and prescription medicines only as told by your doctor. Ask your doctor if the medicine prescribed to you: ?Requires you to avoid driving or using machinery. ?Can cause trouble pooping (constipation). You may need to take these actions to prevent or treat trouble pooping: ?Drink enough fluid to keep your pee (urine) pale yellow. ?Take vfuo-jcb-rdwjfph or prescription medicines. ?Eat foods that are [...] provider. Document Revised: 04/20/2020 Document Reviewed: 04/20/2020 [employer] Patient Education 2022 [employer]. 04/02/2023 22:19:34 Back Exercises, Vsum-uw-Cpok Back Exercises These exercises help to make [...] provider. Document Revised: 05/24/2021 Document Reviewed: 05/24/2021 [employer] Patient Education 2022 [employer]. Follow Up Care 04/02/2023 21:42:13 With:ANTONIO HUSAIN Address: [address] [place] [phone] Business (1) When:04/05/2023 21:59:55 Comments:You can take the naproxen every 12 hours as needed for for pain you can use the Robaxin every 8 hours as needed for pain. Please follow-up with your primary care doctor next 2 to 3 days. Please return to the ED for any new or worsening symptoms. [facility]01-09-2024 Evaluation + Plan noteExtracted from: Title:ED NoteAuthor:Elisa Sánchez DO ADate:04/02/23 Chronic back pain (M54.9: Do rsalgia, unspecified) Other chronic pain (G89.29: Other chronic pain) Orders: ketorolac, 30 mg = 1 mL, Injection, IntraMuscular, Once, Stop date 04/02/23 21:58:00 EST, STAT, Start date 04/02/23 21:58:00 EST, 04/02/23 21:58:00 EST methocarbamol, 500 mg = 1 tab(s), Oral, TID, X 3 day(s), # 9 tab(s), Refills(s) 0, Pharmacy: [facility]/pharmacy #[id number], 160, cm, 04/02/23 21:48:00 EST, Height/Length Dosing, 110, kg, 04/02/23 21:48:00 EST, Weight Dosing naproxen, 500 mg = 1 tab(s), Oral, BID, PRN for pain, # 20 tab(s), Refills(s) 0, Pharmacy: [facility]/pharmacy #[id number], 160, cm, 04/02/23 21:48:00 EST, Height/Length Dosing, 110, kg, 04/02/23 21:48:00 EST, Weight Dosing orphenadrine, 60 mg = 2 mL, Injection, IntraMuscular, Once, Stop date 04/02/23 21:58:00 EST, STAT, Start date 04/02/23 21:58:00 EST, 04/02/23 21:58:00 EST oxycodone, 5 mg = 1 tab(s), Tab, Oral, Once, Stop date 04/02/23 21:59:00 EST, STAT, Start date 04/02/23 21:59:00 EST, 04/02/23 21:59:00 EST [facility]01-08-2024 Evaluation + Plan note* Assessment & Plan [...] will see this patient in 6 weeks [facility] Work Phone: 1(847) 771-838001-08-2024 Miscellaneous Notes* Assessment & Plan Note - Chidi Joseph MD - 04/01/2023 9:14 [facility]): Chronic hepatitis C without hepatic coma [...] patient in 6 weeks documented in this [facility] Work Phone: 1(995) 375-935801-08-2024 History of Present illness Narrative* Chidi Joseph [...] HBVDNAQNPCRL , HBVDNAPCR No results found for: ZBZI502 , [id number] === 02/13/23 === US ABDOMEN LIMITED LIVER - Impression - No focal intrahepatic lesions noted. The patient is status post cholecystectomy. MACRO: None Signed by: Harshad Tran 02/14/2023 7:30 AM Dictation workstation: [id number] Chronic hepatitis C without hepatic coma (CMS/HCC) [...] patient in 6 weeks documented in this [facility] Work Phone: 1(886) 205-947901-08-2024 Instructions* Patient Instructions* Elke Haas RN - 04/01/2023 8:20 AM EST [phone] (See below for department name when scheduling) [...] [facility] is located at the following locations: Critical access hospital, [facility], [facility]. YOU SHOULD NOT EAT OR DRINK 3 HOURS BEFORE THE EXAM. [x] FOLLOW UP (Department Gastro): due date : 6 Week If you have any questions or need assistance, please don't hesitate to contact us. Dr. Joseph: Office [phone] Hepatology Nurse Coordinator: Elke SEXTON [phone] documented in this [facility] Work Phone: 1(304) 354-376901-02-2024 Hospital Discharge instructions Patient Education 03/26/2023 12:45:13 [...] Follow these instructions at home: Medicines Take xhdv-urj-fgwpeof and prescription medicines only as told by your health care provider. Ask your health care provider if the medicine prescribed to you: ?Requires you to avoid driving or using heavy machinery. ?Can cause constipation. You may need to take these actions to prevent or treat constipation: ?Drink enough fluid to keep your urine pale yellow. ?Take cmlq-cza-jdcglwn or prescription medicines. ?Eat foods that are [...] provider. Document Revised: 07/03/2019 Document Reviewed: 04/23/2019 [employer] Patient Education 2022 [employer]. Follow Up Care 03/26/2023 10:48:18 With:ANTONIO HUSAIN Address: [address] [place] [phone] Business (1) When:Within 3 Day(s) [facility]01-02-2024 Evaluation + Plan noteExtracted from: Title:ED NoteAuthor:Jorge Mcintosh DODate:03/26/23 Migraine (G43.909: Migraine, unspecified, not intractable, without [...] day(s), # 15 tab(s), Refills(s) 0, Pharmacy: [facility]/pharmacy #[id number], 160, cm, 03/26/23 10:58:00 EST, Height/Length Dosing, 110, kg, 03/26/23 10:58:00 EST,Weight Dosing metoclopramide, 10 mg = 2 mL, Injection, IV Push, Once, Stop date 03/26/23 11:06:00 EST, STAT, Start date 03/26/23 11:06:00 EST, 03/26/23 11:06:00 EST Sodium Chloride 0.9% intravenous solution, 1,000 mL, Soln-IV, IV, Once, Stop date 03/26/23 11:06:00EST, STAT, Start date 03/26/23 11:06:00 EST, Infuse over 61, minute(s) [facility]12-30-2023 Hospital Discharge instructions Patient Education 03/23/2023 13:57:23 [...] home: Managing pain, stiffness, and swelling Take ngdc-frn-uvmmvkh and prescription medicines only as told by [...] each day. 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 Take bpfd-ssk-tepncli and prescription medicines only as told by your health care provider, and apply heat or ice as told. This information is not intended to replace advice given to you by your health care provider. Make sure you discuss any questions you have with your health care provider. Document Revised: 06/02/2021 Document Reviewed: 06/02/2021 [employer] Patient Education 2022 [employer]. 03/23/2023 13:57:23 Chronic Back Pain, Rdvr-dn-Pwwq Chronic Back Pain When back pain lasts [...] pull them backward. 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 [...] prescription pain medicine, or muscle relaxants. Take wzao-myq-yyvgkxd and prescription medicines only as told by your doctor. Ask your doctor if the medicine prescribed to you: ?Requires you to avoid driving or using machinery. ?Can cause trouble pooping (constipation). You may need to take these actions to prevent or treat trouble pooping: ?Drink enough fluid to keep your pee (urine) pale yellow. ?Take yutq-uwm-pkhajqa or prescription medicines. ?Eat foods that are [...] provider. Document Revised: 04/20/2020 Document Reviewed: 04/20/2020 [employer] Patient Education 2022 [employer]. 03/23/2023 13:57:23 Back Exercises, Nogg-lk-Aldb Back Exercises These exercises help to make [...] provider. Document Revised: 05/24/2021 Document Reviewed: 05/24/2021 [employer] Patient Education 2022 [employer]. Follow Up Care 03/23/2023 12:41:35 With:[facility]: [facility] [phone] Address:Unknown When:03/26/2023 13:05:55 With:ANTONIO HUSAIN Address: [address] [place] [phone] Business (1) When:03/26/2023 13:05:48 Comments:Follow-up with your primary care provider in 3 to 5 days. If symptoms worsen, do not improve, or new symptoms arise please report back to emergency department for further evaluation. [facility]12-30-2023 Evaluation + Plan noteExtracted from: Title:ED NoteAuthor:Yaw MILES, Landon GoveaDate:03/23/23 Chronic back pain (M54.9: Do rsalgia, unspecified) Other chronic pain (G89.29: Other chronic pain) Orders: ibuprofen, 800 mg = 1 tab(s), Oral, q8hr, # 30 tab(s), Refills(s) 0, Pharmacy: [facility]/pharmacy #[id number], 160, cm, 03/23/23 12:50:00 EST, Height/Length Dosing, 109, kg, 03/23/23 12:50:00 EST, Weight Dosing ketorolac, 60 mg = 2 mL, Injection, IntraMuscular, Once, Stop date 03/23/23 13:03:00 EST, STAT, Start date 03/23/23 13:03:00 EST, 03/23/23 13:03:00 EST morphine, 4 mg = 1 mL, Injection, IntraMuscular, Once, Stop date 03/23/23 13:03:00 EST, STAT, Startdate 03/23/23 13:03:00 EST, 03/23/23 13:03:00 EST orphenadrine, 60 mg = 2 mL, Injection, IntraMuscular, Once, Stop date 03/23/23 13:03:00 EST, STAT, Start date 03/23/23 13:03:00 EST, 03/23/23 13:03:00 EST [facility]12-27-2023 Hospital Discharge instructions Patient Education 03/20/2023 13:38:51 [...] pull them backward. 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 [...] prescription pain medicine, or muscle relaxants. Take albw-wac-egjklyj and prescription medicines onlyas told by your health care provider. Ask your health care provider if the medicine prescribed to you: ?Requires you to avoid driving or using machinery. ?Can cause constipation. You may need to take these actions to prevent or treat constipation: ?Drink enough fluid to keep your urine pale yellow. ?Take zfsi-jlp-jgtspkp or prescription medicines. ?Eat foods that are [...] provider. Document Revised: 04/20/2020 Document Reviewed: 04/20/2020 [employer] Patient Education 2022 [employer]. 03/20/2023 13:38:51 Acute Pain, Adult Acute Pain, [...] Follow these instructions at home: Medicines Take rfyl-hlz-hejdhwh and prescription medicines only as told by [...] pain is severe. ?Do not take other kcye-mvk-bagglzf pain medicines in addition to prescription pain [...] grains, and fresh fruits and vegetables. ?Take iany-vgs-gmrycpp or prescription medicines. ?Limit foods that are [...] or you are no longer ill. Take weuq-ura-hlgugwq and prescription medicines only as told by [...] provider. Document Revised: 07/26/2022 Document Reviewed: 07/27/2019 [employer] Patient Education 2022 [employer]. 03/20/2023 13:38:51 Radicular Pain Radicular Pain Radicular [...] knees and rising up. Do strength and ceqio-aq-xwzxuj exercises only as told by your health care provider or physical therapist. General instructions Take wgfk-chs-brizaae and prescription medicines only as told by [...] provider. Document Revised: 09/14/2021 Document Reviewed: 09/14/2021 [employer] Patient Education 2022 [employer] Follow Up Care 03/20/2023 12:42:50 With:ANTONIO HUSAIN Address: [address] [place] [phone] Business (1) When:03/23/2023 13:25:02 Comments:Follow-up with your primary care provider in 3 to 5 days. If symptoms worsen, do not improve, or new symptoms arise please report back to emergency department for further evaluation. [facility]12-27-2023 Evaluation + Plan noteExtracted from: Title:ED NoteAuthor:Yaw MILES, Landon Hugo.Date:03/20/23 Lumbago with sciatica, right side (M54.41: Lumbago with sciatica, right side) Orders: ketorolac, 60 mg = 2 mL, Injection, IntraMuscular, Once, Stop date 03/20/23 13:21:00 EST, STAT, Start date 03/20/23 13:21:00 EST, 03/20/23 13:21:00 EST morphine, 4 mg = 1 mL, Injection, IntraMuscular, Once, Stop date 03/20/23 13:21:00 EST, STAT, Startdate 03/20/23 13:21:00 EST, 03/20/23 13:21:00 EST [facility]12-18-2023 Evaluation + Plan noteExtracted from: Title:ED NoteAuthor:Arnaldo SLAETR, JohnDate:03/11/23 Gastroenteritis (K52.9: Denisa nfective gastroenteritis and colitis, [...] Function Panel Lipase Level Rapid COVID Antigen ([facility]) [facility]12-18-2023 Hospital Discharge instructions Follow Up Care 03/11/2023 08:57:16 With:ANTONIO MCELROYPepe Address: [address] [place] [phone] Business (1) When:Within 3 Day(s) [facility]11-21-2023 Hospital Discharge instructions Patient Education 02/12/2023 21:11:24 [...] pull them backward. 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 [...] prescription pain medicine, or muscle relaxants. Take yany-nbr-ewxpbqn and prescription medicines onlyas told by your health care provider. Ask your health care provider if the medicine prescribed to you: ?Requires you to avoid driving or using machinery. ?Can cause constipation. You may need to take these actions to prevent or treat constipation: ?Drink enough fluid to keep your urine pale yellow. ?Take pcmk-oky-banrvuv or prescription medicines. ?Eat foods that are [...] provider. Document Revised: 04/20/2020 Document Reviewed: 04/20/2020 [employer] Patient Education 2022 [employer]. Follow Up Care 02/12/2023 19:28:18 With:DALTON JAMES Address[facility] [address] [place] [phone] Business (1) When:02/15/2023 20:41:14 [facility]11-21-2023 Evaluation + Plan noteExtracted from: Title:ED NoteAuthor:Pedro Pablo Fletcher DODate:02/12/23 Acute exacerbation of chroni c low back pain (M54.50: Low back pain, unspecified) Other chronic pain (G89.29: Other chronic pain) Orders: morphine, 2 mg = 1 mL, Injection, IntraMuscular, Once, Stop date 02/12/23 20:40:00 EST, STAT, Startdate 02/12/23 20:40:00 EST, 02/12/23 20:40:00 EST orphenadrine, 60 mg = 2 mL, Injection, IntraMuscular, Once, Stop date 02/12/23 20:39:00 EST, STAT, Start date 02/12/23 20:39:00 EST, 02/12/23 20:39:00 EST [facility]11-16-2023 Hospital Discharge instructions Patient Education 02/07/2023 20:30:36 Chronic Back Pain, Ffic-ft-Rjtn Chronic Back Pain When back pain lasts [...] pull them backward. 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 [...] prescription pain medicine, or muscle relaxants. Take pwbi-wzv-grisqqn and prescription medicines only as told by your doctor. Ask your doctor if the medicine prescribed to you: ?Requires you to avoid driving or using machinery. ?Can cause trouble pooping (constipation). You may need to take these actions to prevent or treat trouble pooping: ?Drink enough fluid to keep your pee (urine) pale yellow. ?Take zyoh-fts-hcbmlyg or prescription medicines. ?Eat foods that are [...] provider. Document Revised: 04/20/2020 Document Reviewed: 04/20/2020 [employer] Patient Education 2022 [employer]. 02/07/2023 20:30:36 Back Exercises, Wnol-wm-Cioh Back Exercises These exercises help to make [...] provider. Document Revised: 05/24/2021 Document Reviewed: 05/24/2021 [employer] Patient Education 2022 [employer]. Follow Up Care 02/07/2023 19:11:26 With:Declan COLVIN Address: [address] [place] [phone] [facility] (1) When:02/10/2023 19:59:42 Comments:Take the steroids once daily until you have completed the course. You can use the anti-inflammatory, muscle relaxers as prescribed as needed for pain. Please follow-up with your primary care doctor in addition to spine doctor for further evaluation and management. With:XXXX NONE Address: [place] When:Within 3 Day(s) [facility]11-07-2023 Hospital Discharge instructions Patient Education 01/29/2023 12:30:56 [...] Follow these instructions at home: Medicines Take qnbg-jws-ifiguxe and prescription medicines only as told by your health care provider. Ask your health care provider if the medicine prescribed to you: ?Requires you to avoid driving or using machinery. ?Can cause constipation. You may need to take these actions to prevent or treat constipation: ?Drink enough fluid to keep your urine pale yellow. ?Take fbez-xcb-swkroty or prescription medicines. ?Eat foods that are [...] department or: Call your local emergency services (543 in the [place] Call a suicide crisis helpline, such as the National Suicide Prevention Lifeline at or 451 in the [place] This is open 24 hours a day in the [place] Text the Crisis Text Line at 496769 (in the [place] Summary Chronic pain is [...] provider. Document Revised: 10/04/2021 Document Reviewed: 11/26/2019 [employer] Patient Education 2022 [employer]. Follow Up Care 01/29/2023 11:30:42 With:Jenny Mar Address: Pain Management [address] [place], [place] [address]v[place] [address] [facility] (1) When:02/01/2023 12:09:50 [facility]10-31-2023 Hospital Discharge instructions Patient Education 01/22/2023 19:37:08 Chronic Back Pain, Dvhk-py-Guxd Chronic Back Pain When back pain lasts [...] pull them backward. 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 [...] prescription pain medicine, or muscle relaxants. Take tjqr-oal-emgsexg and prescription medicines only as told by your doctor. Ask your doctor if the medicine prescribed to you: ?Requires you to avoid driving or using machinery. ?Can cause trouble pooping (constipation). You may need to take these actions to prevent or treat trouble pooping: ?Drink enough fluid to keep your pee (urine) pale yellow. ?Take ttsv-jul-rsbxrgo or prescription medicines. ?Eat foods that are [...] provider. Document Revised: 04/20/2020 Document Reviewed: 04/20/2020 [employer] Patient Education 2022 [employer]. Follow Up Care 01/22/2023 18:45:34 With:Peña Salazar Address: [address] [place] [phone] Business (1) When:01/25/2023 19:09:36 Comments:Follow-up with your primary care provider in 3 to 5 days. If symptoms worsen, do not improve, or new symptoms arise please report back to emergency department for further evaluation. [facility]10-31-2023 Evaluation + Plan noteExtracted from: Title:ED NoteAuthor:Yaw MILES, Landon GoveaDate:01/22/23 Chronic back pain (M54.9: Do rsalgia, unspecified) Other chronic pain (G89.29: Other chronic pain) Orders: ketorolac, 30 mg = 1 mL, Injection, IntraMuscular, Once, Stop date 01/22/23 19:08:00 EDT, STAT, Start date 01/22/23 19:08:00 EDT, 01/22/23 19:08:00 EDT morphine, 4 mg = 2 mL, Injection, IntraMuscular, Once, Stop date 01/22/23 19:08:00 EDT, STAT, Startdate 01/22/23 19:08:00 EDT, 01/22/23 19:08:00 EDT [facility]10-31-2023 History of Present illness Narrative* Jori Harman MD PhD - 01/22/2023 1:30 PM EDT It was a pleasure to see Ms. Tracy at the [facility] at [facility]. Patient is a 47 year [...] All questions were answered. documented in this [facility] Work Phone: [phone] History of Present illness Narrative* Antonio Husain PA-C - 01/15/2023 1:10 PM EDT Subjective Patient ID: Jerad Tracy is a 47 y.o. female who presents for [facility] (Patient transferring Care form [place], [place], last seen by PCP 3 months ago./Colonoscopy done 04/2022 and bone density done 10/2022 at [facility], mammogram scheduled for 01-17-23 and Pap done over 5 years.) and Weight Loss (Patient would like to discuss weight loss options.). HPI Patient presents to [facility]. Patient has medical history of depression, herniated [...] some time and was previously seen in [place] by neurosurgery. Patient reports inability to get [...] Controlled substance agreement signed [facility]: [phone] Hospital Discharge instructions Patient Education 01/14/2023 15:50:08 [...] pull them backward. 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 [...] prescription pain medicine, or muscle relaxants. Take ahir-eqn-vxvpyzn and prescription medicines onlyas told by your health care provider. Ask your health care provider if the medicine prescribed to you: ?Requires you to avoid driving or using machinery. ?Can cause constipation. You may need to take these actions to prevent or treat constipation: ?Drink enough fluid to keep your urine pale yellow. ?Take bkld-prh-tryhogv or prescription medicines. ?Eat foods that are [...] provider. Document Revised: 04/20/2020 Document Reviewed: 04/20/2020 [employer] Patient Education 2022 [employer]. 01/14/2023 15:50:08 Back Exercises, Dggz-aj-Vzmp Back Exercises These exercises help to make [...] provider. Document Revised: 05/24/2021 Document Reviewed: 05/24/2021 [email or web address] Patient Education 2022 [employer]. Follow Up Care 01/14/2023 14:32:06 With:Domenic Sher Address: [facility] [place] [phone]- Business (1) When:01/17/2023 15:23:38 [facility]10-23-2023 Evaluation + Plan noteExtracted from: Title:ED NoteAuthor:Eden Salomon XDate:01/14/23 Chronic back pain (M54.9: Do rsalgia, unspecified) [facility]10-21-2023 Hospital Discharge instructions Patient Education 01/12/2023 21:42:49 [...] home: Managing pain, stiffness, and swelling Take rjbt-cpy-jvyeavc and prescription medicines only as told by [...] each day. 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 Take ilxb-fga-dusydvh and prescription medicines only as told by your health care provider, and apply heat or ice as told. This information is not intended to replace advice given to you by your health care provider. Make sure you discuss any questions you have with your health care provider. Document Revised: 06/02/2021 Document Reviewed: 06/02/2021 [employer] Patient Education 2022 [employer] 01/12/2023 21:42:49 Contusion Contusion A contusion is [...] sitting or lying down. General instructions Take upto-jcf-sripkns and prescription medicines only as told by [...] compression, and elevation. You may be given doiz-tge-clssglh medicines for pain. Contact a health care [...] provider. Document Revised: 01/23/2022 Document Reviewed: 01/04/2022 [employer] Patient Education 2022 [employer]. Follow Up Care 01/12/2023 20:23:40 With:Alondra PHOENIX Address: [address] [place] [phone] Business (1) When:01/15/2023 21:37:43 Comments:Return to the emergency room if your pain gets worse or any new symptoms. [facility]10-21-2023 Evaluation + Plan noteExtracted from: Title:ED NoteAuthor:Annette Watkins, Balbina HDate:01/12/23 1. Lumbar contusion (S30.0XX A: Contusion of [...] Once, Stop date 01/12/23 20:36:00 EDT, STAT, Startdate 01/12/23 20:36:00 EDT, 01/12/23 20:36:00 EDT XR Spine Lumbosacral 2 or 3 Views [facility]10-19-2023 Evaluation + Plan noteExtracted from: Title:ED NoteAuthor:Nikhil Tubbs DODate:01/10/23 Back pain (M54.9: Dorsalgia, unspecified) Ordered: acetaminophen-oxycodone, 1 tab(s), Oral, q6hr Pain 8-10, 4 tab(s), Refill(s) 0, [id number],160, cm, 01/10/23 10:36:00 EDT, Height/Length Dosing, 115.7, kg, 01/10/23 10:36:00 EDT, Weight Dosing Orders: ketorolac, 30 mg = 1 mL, Injection, IntraMuscular, Once, Stop date 01/10/23 11:37:00 EDT, STAT, Start date 01/10/23 11:37:00 EDT, 01/10/23 11:37:00 EDT methylPREDNISolone, = 1 packet(s), Oral, As Directed, as directed on package labeling, X 6 day(s), # 21 tab(s), Refills(s) 0, Pharmacy: [id number], 160, cm, 01/10/23 10:36:00 EDT, Height/Length Dosing, 115.7, kg, 01/10/23 10:36:00 EDT, Weight Dosing morphine, 4 mg = 2 mL, Injection, IntraMuscular, Once, Stop date 01/10/23 11:37:00 EDT, STAT, Startdate 01/10/23 11:37:00 EDT, 01/10/23 11:37:00 EDT [facility]-2023 Evaluation note* Encounter Date Diagnosis Assessment Notes Treatment Notes Treatment Clinical Notes Dec, Lumbar degenerative disc disease (ICD-10 - M51.36) Dec,Lumbar radiculopathy (ICD-10 - M54.16)I independently reviewed the MRI of the lumbar [...] a S1 radiculopathy and I believe this iswhy she got no improvement with the transforaminal injections this patient has axial back pain midline sacrum lumbar sacral junction and in my opinion her best option remains pain management I have given her a referral.She would like to go back to the [facility] and does not like coming all the way out to [place] for the pain management. Dec,Lumbosacral spondylosis (ICD-10 - M47.817) Dec,hronic pain (ICD-10 - G89.29) [employer] Other 10-19-2023 Hospital Discharge instructions Patient Education [...] home: Managing pain, stiffness, and swelling Take wzox-afu-afpsqwo and prescription medicines only as told by [...] each day. 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 Take uovu-awj-byhzzmb and prescription medicines only as told by your health care provider, and apply heat or ice as told. This information is not intended to replace advice given to you by your health care provider. Make sure you discuss any questions you have with your health care provider. Document Revised: 06/02/2021 Document Reviewed: 06/02/2021 [employer] Patient Education 2022 [employer]. Follow Up Care 01/10/2023 10:31:11 With:Joe Meza Address: [address] [place], [place] [phone]- Business (1) When:01/13/2023 11:35:28 Comments:Call the office [...] breath, or any new or worsening symptoms. [facility]-15-2023 Hospital Discharge instructions Additional Instructions Take medication as prescribed Follow-up with the doctor as scheduled this week Return to the ER for worsening pain fever weakness in her legs loss of bladder bowel control or any [facility] Work Phone: [phone] Hospital Discharge instructions Additional Instructions Keep follow up appointment with [facility] neurosurgery this week. She is uncertain of the name of the provider she is seeing. She was referred to the [facility] last week by Dr. Meza. [facility] Work Phone: [phone] Evaluation + Plan noteExtracted from:Title: ED NoteAuthor:Annette Watkins, Balbina HDate:01/05/23 1. Contusion of lower back ( S30.0XXA: [...] Once, Stop date 01/04/23 22:59:00 EDT, STAT, Startdate 01/04/23 22:59:00 EDT, 01/04/23 22:59:00 EDT naproxen, 500 mg = 1 tab(s), Oral, BID, # 20 tab(s), Refills(s) 0, Pharmacy: [id number], 160, cm, 01/04/23 21:16:00 EDT, Height/Length Dosing, 114.7, kg, 01/04/23 21:16:00 EDT, Weight Dosing orphenadrine, 60 mg = 2 mL, Injection, IntraMuscular, Once, Stop date 01/04/23 21:39:00 EDT, STAT, Start date 01/04/23 21:39:00 EDT, 01/04/23 21:39:[address] Spine Lumbar w/o Contrast XR Hip 2-3 Views Left + Pelvis [facility]10-14-2023 Hospital Discharge instructions Patient Education 01/05/2023 00:38:20 [...] Follow these instructions at home: Medicines Take jtes-ueo-njagaoy and prescription medicines only as told by your health care provider. Ask your health care provider if the medicine prescribed to you: ?Requires you to avoid driving or using heavy machinery. ?Can cause constipation. You may need to take these actions to prevent or treat constipation: ?Drink enough fluid to keep your urine pale yellow. ?Take nufw-sff-chuienb or prescription medicines. ?Eat foods that are [...] provider. Document Revised: 06/29/2020 Document Reviewed: 06/29/2020 [employer] Patient Education 2022 [employer]. 01/05/2023 00:38:20 Contusion Contusion A contusion is [...] sitting or lying down. General instructions Take qumq-itv-dkidsrx and prescription medicines only as told by [...] compression, and elevation. You may be given lock-wys-vwghlrf medicines for pain. Contact a health care [...] provider. Document Revised: 01/23/2022 Document Reviewed: 01/04/2022 [employer] Patient Education 2022 [employer] Follow Up Care 01/04/2023 21:05:36 With:Joe Meza Address: [address] [place] [phone]- Business (1) When:01/08/2023 Comments:Return to the emergency room if your pain gets worse, bowel or bladder incontinence, numbness/tingling in the saddle/groin area or any new symptoms. [facility]-11-2023 Hospital Discharge instructions Patient Education 01/02/2023 16:56:30 Chronic Back Pain, Qrvh-jq-Rtfw Chronic Back Pain When back pain lasts [...] pull them backward. 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 [...] prescription pain medicine, or muscle relaxants. Take vatj-bna-kpvyzeh and prescription medicines only as told by your doctor. Ask your doctor if the medicine prescribed to you: ?Requires you to avoid driving or using machinery. ?Can cause trouble pooping (constipation). You may need to take these actions to prevent or treat trouble pooping: ?Drink enough fluid to keep your pee (urine) pale yellow. ?Take ltiz-xob-ilcwjjp or prescription medicines. ?Eat foods that are [...] provider. Document Revised: 04/20/2020 Document Reviewed: 04/20/2020 [employer] Patient Education 2022 [employer]. Follow Up Care 01/02/2023 15:59:31 With:Joe Derrick Address: [address] [place] [phone] Business (1) When:01/05/2023 16:20:40 [facility]10-11-2023 Evaluation + Plan noteExtracted from: Title:ED NoteAuthor:Yaw MILES, Landon GoveaDate:01/02/23 Chronic back pain (M54.9: Do rsalgia, unspecified) [...] Once, Stop date 01/02/23 16:18:00 EDT, STAT, Startdate 01/02/23 16:18:00 EDT, 01/02/23 16:18:00 EDT ondansetron, 4 mg = 1 tab(s), Oral, q8hr, PRN Nausea/Vomiting, # 12 tab(s), Refills(s) 0, Pharmacy:[id number], 160, cm, 01/02/23 16:09:00 EDT, Height/Length Dosing, 114.2, kg, 01/02/23 16:09:00 EDT, Weight Dosing [facility]10-05-2023 Evaluation note* Encounter Date Diagnosis Assessment Notes Treatment Notes Treatment Clinical Notes Dec, Lumbosacral radiculopathy at L5 (ICD-10 - M54.17) All test reviewed with patient X-ray lumbar spine 4V reviewed from 12/09/2022 which shows no fracture or subluxation. Degenerative changes are redemonstrated in the lower lumbar spine greatest at L4-5and L5-S1. Mild degeneration changes are noted in [...] spondylosis. Mild midline disc protrusion. Concavity enter thecalsac. Patent central canal. Facet ligamentum flavum hypertrophy. Moderate right and mild left neuroforaminal narrowing. Patient's symptoms seem to be L4- L5 L5-S1 with left greater than right. DEXA scan reviewed from 09/10/2022 which shows normal. Physical therapy notes from 09/06/2022 in which patienthad 1 physical therapy session and was disengaged due to worsening of pain. Pain management notes reviewed with the most recent note from Dr. Garza from 12/26/2022 in which patient had minimal relief from injections. Medical management patient will continue with current medication as prescribed. Willorder bilateral lower extremity EMG. -Follow up in 2 weeks for Sx Consult with Dr Meza. Dec,Lumbosacral spondylosis (ICD-10 - M47.817) Dec,Lumbar degenerative disc disease (ICD-10 - M51.36) [facility] [employer] Other 10-04-2023 Hospital Discharge instructions Patient Education [...] pull them backward. 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 [...] prescription pain medicine, or muscle relaxants. Take omgg-inw-upidddp and prescription medicines onlyas told by your health care provider. Ask your health care provider if the medicine prescribed to you: ?Requires you to avoid driving or using machinery. ?Can cause constipation. You may need to take these actions to prevent or treat constipation: ?Drink enough fluid to keep your urine pale yellow. ?Take yeyq-xtl-cofkids or prescription medicines. ?Eat foods that are [...] provider. Document Revised: 04/20/2020 Document Reviewed: 04/20/2020 [employer] Patient Education 2022 [employer]. Follow Up Care 12/26/2022 16:21:06 With:Bridger Del Rosario Address: [address] [place] [address] [place] [address] [facility] (1) When:12/29/2022 16:53:27 [facility]10-04-2023 Evaluation + Plan noteExtracted from: Title:ED NoteAuthor:Brandon MILES, JansenDate:12/26/22 Chronic back pain (M54.9: Do rsalgia, unspecified) [...] Once, Stop date 12/26/22 16:52:00 EDT, STAT, Startdate 12/26/22 16:52:00 EDT, 12/26/22 16:52:00 EDT ondansetron, 4 mg = 1 tab(s), Tab-Dis, Oral, Once, Stop date 12/26/22 16:52:00 EDT, STAT, Start date 12/26/22 16:52:00 EDT, 12/26/22 16:52:00 EDT [facility]-04-2023 Evaluation note* Encounter Date Diagnosis Assessment Notes Treatment Notes Treatment Clinical Notes Dec, Lumbar degenerative disc disease (ICD-10 - M51.36) Follow up with Neurosurgery Dec,Lumbar radiculopathy (ICD-10 - M54.16) 47 year old [...] I feel we have exhausted nearly all interventionaloptions. She is encouraged to follow up with [facility] for neurosurgery consultation as scheduled tomorrow. She can also see a tertiary center or chronic pain rehab in the future, if applicable. Dec,Sacroiliitis (ICD-10 - M46.1) Patient reports minimal pain relief or improved walking, standing and daily functions following procedure. Dec,Lumbosacral spondylosis (ICD-10 - M47.817) Continue with current treatment plan Dec,hronic pain (ICD-10 - G89.29) No follow up. [employer] Other 10-01-2023 Hospital Discharge instructions Patient Education [...] home: Managing pain, stiffness, and swelling Take yzoo-sbh-rghvrdt and prescription medicines only as told by [...] each day. 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 Take vhgu-nfl-lqiaczr and prescription medicines only as told by your health care provider, and apply heat or ice as told. This information is not intended to replace advice given to you by your health care provider. Make sure you discuss any questions you have with your health care provider. Document Revised: 06/02/2021 Document Reviewed: 06/02/2021 [employer] Patient Education 2022 [employer]. Follow Up Care 12/23/2022 16:55:38 With:Keep upcoming appointment with your spinal surgeon Address:Unknown When:12/26/2022 18:30:08 Comments:Seek immediate medical attention if you develop: increasing pain, numbness, tingling, weakness, loss of motion in your arms or legs, loss of control of your urine or stool, fever, abdominal pain, chest pain, shortness of breath, or any new or worsening symptoms. [facility]10-01-2023 Evaluation + Plan noteExtracted from: Title:ED NoteAuthor:Nikhil Tubbs DODate:12/23/22 Acute exacerbation of chroni c low back [...] day(s), # 15 tab(s), Refills(s) 0, Pharmacy: [id number], 160, cm, 12/23/22 17:18:00 EDT, [...] pain, # 20 tab(s), Refills(s) 0, Pharmacy: [id number], 160, cm, 12/23/22 17:18:00 EDT, Height/Length Dosing, 113.8, kg, 12/23/22 17:18:00 EDT, Weight Dosing XR Spine Lumbosacral 2 or 3 Views [facility]09-26-2023 Hospital Discharge instructions Patient Education 12/18/2022 13:31:19 [...] home: Managing pain, stiffness, and swelling Take wjon-kqz-cwivjbe and prescription medicines only as told by [...] each day. 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 Take zdzz-ivl-enyjllm and prescription medicines only as told by your health care provider, and apply heat or ice as told. This information is not intended to replace advice given to you by your health care provider. Make sure you discuss any questions you have with your health care provider. Document Revised: 06/02/2021 Document Reviewed: 06/02/2021 [employer] Patient Education 2022 [employer]. Follow Up Care 12/18/2022 12:20:19 With:Joe Meza Address: [address] [place], [place] [phone] Business (1) When:12/21/2022 12:52:24 [facility]-20[facility] Hospital Discharge instructions Patient Education 12/13/2022 19:09:28 [...] pull them backward. 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 [...] prescription pain medicine, or muscle relaxants. Take jjkg-ddy-yfdayjb and prescription medicines onlyas told by your health care provider. Ask your health care provider if the medicine prescribed to you: ?Requires you to avoid driving or using machinery. ?Can cause constipation. You may need to take these actions to prevent or treat constipation: ?Drink enough fluid to keep your urine pale yellow. ?Take pnpt-txw-jlejits or prescription medicines. ?Eat foods that are [...] provider. Document Revised: 04/20/2020 Document Reviewed: 04/20/2020 [employer] Patient Education 2022 [employer]. Follow Up Care 12/13/2022 17:19:50 With:Joe Meza Address: [address] [place] [id number] Business (1) When:12/16/2022 18:50:16 [facility]09-21-2023 Hospital Discharge instructions Patient Education 12/12/2022 23:52:47 [...] hard liquor (44 mL). General instructions Take vlma-bkd-acubszg and prescription medicines only as told by [...] provider. Document Revised: 11/20/2021 Document Reviewed: 11/20/2021 [employer] Patient Education 2022 [employer]. 12/12/2022 23:52:47 Chronic Back Pain Chronic Back [...] pull them backward. 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 [...] prescription pain medicine, or muscle relaxants. Take ifxv-udk-nzafgjv and prescription medicines onlyas told by your health care provider. Ask your health care provider if the medicine prescribed to you: ?Requires you to avoid driving or using machinery. ?Can cause constipation. You may need to take these actions to prevent or treat constipation: ?Drink enough fluid to keep your urine pale yellow. ?Take qaij-aid-gzkrvoi or prescription medicines. ?Eat foods that are [...] provider. Document Revised: 04/20/2020 Document Reviewed: 04/20/2020 [employer] Patient Education 2022 [employer]. Follow Up Care 12/12/2022 20:51:35 With:XXXX NONE Address: [place] When:12/15/2022 Comments:[facility] [...] you develop any new or worsening symptoms. [facility]09-20-2023 Evaluation + Plan noteExtracted from: Title:ED NoteAuthor:Sam Dowd PA-C CDate:12/12/22 Low back pain (M54.50: Low b ack [...] Lumbar w/o Contrast XR Chest Single View [facility] Discharge instructions Patient Education 12/07/2022 18:55:05 Chronic Back Pain, Aeai-ok-Wsiw Chronic Back Pain When back pain lasts [...] pull them backward. 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 [...] prescription pain medicine, or muscle relaxants. Take xdwh-jcs-rtksjnr and prescription medicines only as told by your doctor. Ask your doctor if the medicine prescribed to you: ?Requires you to avoid driving or using machinery. ?Can cause trouble pooping (constipation). You may need to take these actions to prevent or treat trouble pooping: ?Drink enough fluid to keep your pee (urine) pale yellow. ?Take hfsn-rmj-rgyxhpf or prescription medicines. ?Eat foods that are [...] provider. Document Revised: 04/20/2020 Document Reviewed: 04/20/2020 [employer] Patient Education 2022 [employer]. 12/07/2022 18:55:05 Acute Back Pain, Adult Acute [...] home: Managing pain, stiffness, and swelling Take wdjd-exp-ssaafyz and prescription medicines only as told by [...] each day. 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 Take oyxx-jhz-vjuchad and prescription medicines only as told by your health care provider, and apply heat or ice as told. This information is not intended to replace advice given to you by your health care provider. Make sure you discuss any questions you have with your health care provider. Document Revised: 06/02/2021 Document Reviewed: 06/02/2021 [employer] Patient Education 2022 [employer]. Follow Up Care 12/07/2022 16:26:15 With:Peña Salazar Address: [address] [place] [phone] Business (1) When:12/10/2022 18:30:41 Comments:Follow-up with your primary care provider in 3 to 5 days. If symptoms worsen, do not improve, or new symptoms arise please report back to emergency department for further evaluation. [facility]09-12-2023 Emergency department Note* Angela Dan RN - 12/04/2022 8:25 PM EDT Patient discharged to home, alert and oriented, skin warm, dry and pink. Denies needs and or questions. Will follow-up as directed, patient encouraged to return for worsening or new symptoms or otherconcerns. [id number] Emergency [facility] Note* Angela Dan RN - [...] unlabored. Skin warm and dry. * Allyson Griffiths DO - 12/04/2022 7:58 PM EDT Chief Complaint: Lower lumbar back pain that radiates to the right leg history of lumbar disc disease HPI: Jerad A Demarcus is a 47 year old female who presents with a complaint that she does have a known history of lumbar disc disease. She drove over the weekend from [facility] where she lives and exacerbated [...] Management: Outpatient management with her neurosurgeon in [place] FINAL IMPRESSION: 1 --acute on chronic lower lumbar back pain with history of lumbar disc disease 2 -- 3 -- I have reviewed the past medical, family, and social history sections including the medications andallergies listed in the above medical record. Electronically signed by: Allyson Griffiths DO, 12/04/2022 7:58 PM * Angela Dan RN - 12/04/2022 7:54 PM EDT Provider at bedside. * Radha Spivey RN - 12/04/2022 7:08 PM EDT Patient arrives ambulatory to triage with c/o herniated disc in her back, states this is a chronic issue but the pain has been flaring up worse. documented [facility] encounter[facility] [id number] Emergency department Note* Angela Dan RN - 12/04/2022 8:08 PM EDT Patient medicated per MAY. Respirations even and unlabored. Skin warm and dry. [id number] Physician Emergency department Note* Allyson Griffiths DO - 12/04/2022 7:58 PM EDT Chief Complaint: Lower lumbar back pain that radiates to the right leg history of lumbar disc disease HPI: Jerad Tracy is a 47 year old female who presents with a complaint that she does have a known history of lumbar disc disease. She drove over the weekend from [facility] where she lives and exacerbated [...] Management: Outpatient management with her neurosurgeon in [place] FINAL IMPRESSION: 1 --acute on chronic lower lumbar back pain with history of lumbar disc disease 2 -- 3 -- I have reviewed the past medical, family, and social history sections including the medications andallergies listed in the above medical record. Electronically signed by: Allyson Griffiths DO, 12/04/2022 7:58 PM [id number] Emergency department Note* Angela Dan RN - 12/04/2022 7:54 PM EDT Provider at bedside. [id number] Emergency department Note* Radha Spivey RN - 12/04/2022 7:08 PM EDT Patient arrives ambulatory to triage with c/o herniated disc in her back, states this is a chronic issue but the pain has been flaring up worse. [facility] [id number] [facility] Evaluation note* Encounter Date Diagnosis Assessment Notes Treatment Notes Treatment Clinical Notes Oct, Lumbar degenerative disc disease (ICD-10 - M51.36) Continue with current treatment plan Oct,Lumbar radiculopathy (ICD-10 - M54.16) 47 year old female here for follow up to discuss chronic pain. She voices complaints of low back pain with radiation down the bilateral lower extremities to the feet. She was recently seen by Dale, it is recommended the patient proceed with [...] procedure explained to patient; patient verbalizes understanding. Oct,Sacroiliitis (ICD-10 - M46.1) Patient reports minimal pain relief or improved walking, standing and daily functions following procedure. Oct,Lumbosacral spondylosis (ICD-10 - M47.817) In the future if the pain persists, we can consider proceeding with a bilateral lumbar facet MBB followed by a RFA if applicable under fluoroscopic guidance. In the meantime, she is encouraged to start physical therapy as previously ordered. Oct,hronic pain (ICD-10 - G89.29) Follow up after procedure. [employer] Other 08-15-2023 Evaluation note* Encounter Date Diagnosis [...] with Dr. Meza to discuss surgical interventions. Oct,Lumbar degenerative disc disease (ICD-10 - M51.36) Oct,reater trochanteric bursitis of left hip (ICD-10 - M70.62)xray of left hip r/o necrosis Oct,SI (sacroiliac) joint inflammation (ICD-10 - M46.1) [employer] Other 07-05-2023 Evaluation note* Encounter Date Diagnosis Assessment Notes Treatment Notes Treatment Clinical Notes Sep, Lumbar degenerative disc disease (ICD-10 - M51.36) Continue with current treatment plan Sep,Lumbar radiculopathy (ICD-10 - M54.16) 47 year old [...] condition. I recommend she proceed with MRI ofthe lumbar spine once this is approved by insurance. In the meantime, I recommend the patient try using an electrotherapy device as a therapeutic treatment and I will send a prescription for a TENS un it. Patient is encouraged to wear the TENS unit as needed to provide extended pain relief, control breakthrough pain and relax muscle spasms. Steps and instructions for obtaining the device were handed to the patient. Sep,Sacroiliitis (ICD-10 - M46.1) Patient reports minimal pain relief or improved walking, standing and daily functions following procedure. Sep,Lumbosacral spondylosis (ICD-10 - M47.817) In the future if the pain persists, we can consider proceeding with a bilateral lumbar facet MBB followed by a RFA if applicable under fluoroscopic guidance. In the meantime, she is encouraged to start physical therapy as previously ordered. Sep,hronic pain (ICD-10 - G89.29) Follow up after procedure. Sep,OtherUDS performed through [employer] today, will await confirmatory results. [employer] Other 06-28-2023 Procedure [facility]06-13-2023 Hospital Discharge instructions Patient Education 09/04/2022 [...] pull them backward. 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 [...] prescription pain medicine, or muscle relaxants. Take cnee-ivv-lusicmq and prescription medicines onlyas told by your health care provider. Ask your health care provider if the medicine prescribed to you: ?Requires you to avoid driving or using machinery. ?Can cause constipation. You may need to take these actions to prevent or treat constipation: ?Drink enough fluid to keep your urine pale yellow. ?Take ygpc-yiy-jivwzrx or prescription medicines. ?Eat foods that are [...] provider. Document Revised: 04/20/2020 Document Reviewed: 04/20/2020 [employer] Patient Education 2022 [employer]. Follow Up Care 09/04/2022 19:08:34 With:Pain Clinic: [facility] [phone] Address:Unknown When:09/07/2022 20:33:32 With:XXXX NONE Address: [place] When:Within 3 Day(s) [facility]06-13-2023 Evaluation + Plan noteExtracted from: Title:ED NoteAuthor:Sam Dowd PA-C CDate:09/04/22 Chronic back pain (M54.9: Do rsalgia, unspecified) Other chronic pain (G89.29: Other chronic pain) Orders: ketorolac, 60 mg = 2 mL, Injection, IntraMuscular, Once, Stop date 09/04/22 20:29:00 EDT, STAT, Start date 09/04/22 20:29:00 EDT, 09/04/22 20:29:00 EDT [facility]06-13-2023 Evaluation note* Encounter Date Diagnosis Assessment Notes [...] she is waiting to be scheduled at [facility] for this. Prior to examining the [...] as well as Diclofenac gel for pain Aug,Lumbosacral spondylosis (ICD-10 - M47.817) In the future if the pain persists, we can consider proceeding with a bilateral lumbar facet MBB followed by a RFA if applicable under fluoroscopic guidance. In the meantime, she is encouraged to start physical therapy as previously ordered. Aug,Lumbar degenerative disc disease (ICD-10 - M51.36) Stable. Patient denies true radicular symptoms. Continue with current treatment plan Aug,hronic pain (ICD-10 - G89.29) Follow up after procedure. Aug,OtherMedical decision making shows a new problem to me with further workup planned or suggested with thepotential for extensive treatment options that were considered with the most applicable given this patient's situation as noted above. Treatment options considered include a combination of physical th erapy approaches, pharmacologic management, and interventional procedures. Those most applicable tothe patient were discussed at this time. Risk [...] prolonged functional impairment requiring constant patient reassessment andhigh-level medical decision making. The amount and complexity of data reviewed is high given that patient labs, radiology reports, and other test were obtained, reviewed and summarized as applicable from the physician portal and/or outside medical records. Pertinent positive and negative findings were considered in medical decision-making. [employer] Other 05-30-2023 Evaluation note* Encounter Date Diagnosis [...] rule out any cord compression and determin inte rventional procdures. Will refer to pain managment Dr [...] negative findings were considered in medical decision-making July,cute left-sided low back pain, unspecified whether sciatica present (ICD-10 - M54.50) July,ost-menopausal (ICD-10 - Z78.0) July,Encounter for screening for depression (ICD-10 - Z13.31)PHQ reviewed score 0 negative screening for July,Severe obesity (BMI >= 40) (ICD-10 - E66.01)Discussion of diet and exercise, decrease sugar intake. Advised of 1pound over is equvilent to 4-6 p ounds of pressure on the spine. [employer] Other 01-06-2022 Evaluation note* Encounter Date Diagnosis Assessment Notes Treatment Notes Treatment Clinical Notes Mar, DDD (degenerative disc disease), lumbar (ICD-10 - M51.36) Patient's main complaint continues to be her axial back pain symptoms that radiate into her left lower extremity. Given these findings as well as MRI results and physical exam we will plan to proceedwith lumbar epidural steroid injection. Risks and benefits of procedure explained to patient; patient verbalizes understanding. Anatomy of spine discussed in detail with patient in regards to patients condition. Mar,ther low back pain (ICD-10 - M54.59) Mar,therAbove note written by Ina Regalado LPN, [place]. Edited and approved by Dr. Avery Goodman MD.Medical decision making shows a new problem to me with further workup planned or suggested with thepotential for extensive treatment options that were considered with the most applicable given this patient's situation as noted above. Treatment options considered include a combination of physical therapy approaches, pharmacologic management, and interventional procedures. Those most applicable tothe patient were discussed at this time. Risk [...] negative findings were considered in medical decision-making. [employer] Other 11-24-2021 Evaluation note* Encounter Date Diagnosis Assessment Notes Treatment Notes Treatment Clinical Notes Jan, Left hip pain (ICD-10 - M25.552) Jan,umbar radiculopathy (ICD-10 - M54.16) Jerad presents with what I believe is a form of lumbar radiculopathy. At this juncture we have discussed the findings and diagnosis as well as personally reviewed appropriate imaging and performed interpretation of related testing and examination with the patient in office today. Our conservativecare did not resolve her issues and she [...] Cyclobenzaprine was given today. Possible side effects tomedication reveiwed with the patient, patint verbalized understanding and denies any concerns at thi s time. [employer] Other Evaluation + Plan note No data available for this section [facility] Plan noteExtracted from:Title:ED Note Author:Elisa Sánchez DO ADate:02/08/23 Back pain (M54.9: Dorsalgia, unspecified) Orders: methocarbamol, 500 mg = 1 tab(s), Oral, TID, X 3 day(s), # 9 tab(s), Refills(s) 0 morphine, 4 mg = 1 mL, Injection, IntraMuscular, Once, Stop date 02/07/23 19:57:00 EST, STAT, Startdate 02/07/23 19:57:00 EST, 02/07/23 19:57:00 EST naproxen, [...] date 02/07/23 19:57:00 EST, 02/07/23 19:57:00 EST [facility]ments Appointment Date:06/13/2023 07:40:00 AM Scheduled Provider:Mayra Rincon Location:[facility] Appointment Type: New Patient - Adult [facility] Future App[facility]ments Appointment Date:08/14/2023 03:15:00 PM Scheduled Provider:Domenic Sher DO Location:[facility] Appointment Type:Pain Management - Follow Up (FT) Future Scheduled Tests Laboratory* TSH With T4fr Reflex 07/17/23 * Urinalysis with Micro 07/17/23 * Lipid Panel 07/17/23 * Drug Screen Urine 07/17/23 Radiology* MA Mamm Screen w/CAD if perf and 3D Kenan 07/17/23 [facility] Evaluation + Plan note Future Appointments Appointment Date:11/13/2023 08:00:00 AM Scheduled Provider:Domenic Sher DO Location:[facility] Appointment Type:Pain Management - Follow Up (FT) Future Scheduled Tests Laboratory* TSH With T4fr Reflex 07/17/23 * Urinalysis with Micro 07/17/23 * Lipid Panel 07/17/23 * Drug Screen Urine 07/17/23 Radiology* MA Mamm Screen w/CAD if perf and 3D Kenan 07/17/23 [facility] evaluation + Plan note Future Appointments Appointment Date:06/23/2024 09:00:00 AM Scheduled Provider:FLOR JONES Location:[facility] Appointment Type: New Patient - Adult Future Scheduled Tests Laboratory* TSH With T4fr Reflex 07/17/23 * Urinalysis with Micro 07/17/23 * Lipid Panel 07/17/23 * Drug Screen Urine 07/17/23 Radiology* MA Mamm Screen w/CAD if perf and 3D Kenan 07/17/23 [facility] evaluation + Plan note Future Appointments Appointment Date:07/01/2024 08:15:00 AM Scheduled Provider: Location:.[facility] Appointment Type:[place] Screen () Appointment Date:07/07/2024 11:00:00 AM Scheduled Provider:FLOR JONES Location:[facility] Appointment Type: Open Diagnostic Tests Pending * BEATRIZ w/Reflex if POS 06/23/24 * VALERIE and PE, Serum 06/23/24 * Lyme Antibodies w/rflx to IgG/IgM 06/23/24 Future Scheduled Tests Laboratory* TSH With T4fr Reflex 07/17/23 * Urinalysis with Micro 07/17/23 * Lipid Panel 07/17/23 * Drug Screen Urine 07/17/23 Radiology* MA Mamm Screen w/CAD if perf and 3D Kenan 07/17/23 * MA Mamm Screen w/CAD if perf and 3D Kenan 07/01/24 [facility] evaluation + Plan note Future Appointments Appointment Date:07/07/2024 11:00:00 AM Scheduled Provider:FLOR JONES Location:[facility] Appointment Type: Open Future Scheduled Tests Laboratory* TSH With T4fr Reflex 07/17/23 * Urinalysis with Micro 07/17/23 * Lipid Panel 07/17/23 * Drug Screen Urine 07/17/23 Radiology* MA Mamm Screen w/CAD if perf and 3D Kenan 07/17/23 [facility] evaluation + Plan note Future Appointments Appointment Date:10/13/2024 11:00:00 AM Scheduled Provider:FLOR JONES Location:[facility] Appointment Type: Open [facility] Evaluation + Plan note Future Appointments Appointment Date:02/02/2025 02:40:00 PM Scheduled Provider:FLOR JONES Location:[facility] Appointment Type:[facility] [place] Evaluation noteNo InformationNort [employer] Other Evaluation noteNo assessment information available [facility] Work Phone: Evaluation note* Diagnosis Onset Date Resolution Status Rectal bleeding acute [facility] Work Phone: Evaluation note* [...] substance agreement signed documented in this encounter [facility] Work Phone: Evaluation note* Diagnosis Chronic low back pain, unspecified back pain laterality, unspecified whether sciatica present- Primary documented in this encounter [facility] Work Phone: Evaluation note* Diagnosis Chronic hepatitis C without hepatic coma (CMS/HCC) documented in this encounter [facility] Work Phone: Evaluation note* Diagnosis Chronic hepatitis C without hepatic coma (CMS/HCC) documented in this encounter [facility] Work Phone: Evaluation note* Diagnosis Continuous opioid dependence (CMS/HCC)- Primary Opioid type dependence, continuous abuse Chronic hepatitis C without hepatic coma (CMS/HCC) documented in this encounter [facility] Work Phone: Evaluation note* Diagnosis Chronic right-sided low back pain with right-sided sciatica- Primary [facility] Diagnosis Onset Date Resolution Status Arthritis of carpometacarpal (CMC) joint of right thumb acuteSp[facility] Work [facility]: [facility] note* Diagnosis CMC arthritis- Primary Right wrist pain Pain in joint, forearm documented in this encounter [facility] Work Phone: Evaluation note* Diagnosis Chronic back pain greater than 3 months duration- Primary Neuropathic pain documented in this encounter [facility] Work Phone: Evaluation note* Diagnosis Acute bilateral low back pain, unspecified whether sciatica present- Primary [facility] Diagnosis Chronic back pain, unspecified back location, unspecified back pain laterality- Primary documented in this encounter [facility] Work Phone: Evaluation note* Diagnosis Pain disorder associated with psychological and physical factors documented in this encounter [facility] Work Phone: Evaluation note* Diagnosis Low back pain without sciatica, unspecified back pain laterality, unspecified chronicity- Primary [facility]* Diagnosis Chronic back pain greater than 3 months duration- Primary Chronic back pain greater than 3 months duration Neuropathic pain Continuous opioid dependence (Multi) Opioid type dependence, continuous abuse Neuropathic pain documented in this encounter [facility] Work Phone: Evaluation note* Diagnosis Chronic back pain greater than 3 months duration- Primary Neuropathic pain documented in this encounter [facility] Work Phone: Evaluation note* Diagnosis Strain of lumbar region, initial encounter- Primary documented in this encounter [facility] IncEvaluation note* Diagnosis Infection of superficial incisional surgical site after procedure, initial encounter- Primary documented in this encounter [facility] note* Diagnosis Dehiscence of wound of skin, initial encounter- Primary Low back pain, unspecified back pain laterality, unspecified chronicity, unspecified whether sciatica present [facility]* Diagnosis 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 Hepatic fibrosis, advanced fibrosis documented in this encounter [facility] Work Phone: Evaluation note* Diagnosis 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 Hepatic fibrosis, advanced fibrosis Neuropathic pain- Primary Dehiscence of wound of skin, subsequent encounter Status post insertion of spinal cord stimulator documented in this encounter [facility] Work Phone: [phone] note* Diagnosis 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 Hepatic fibrosis, advanced fibrosis Acute exacerbation of chronic low back pain- Primary documented in this encounter [facility] Work Phone: [phone] note* Diagnosis 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 Hepatic fibrosis, advanced fibrosis Lumbar radiculopathy- Primary Thoracic or lumbosacral neuritis or radiculitis, unspecified Left leg weakness Muscle weakness (generalized) Chronic midline low back pain, unspecified whether sciatica present Spinal stenosis of lumbar region, unspecified whether neurogenic claudication present Acute exacerbation of chronic low back pain documented in this encounter [facility] Work Phone: [phone] note* Diagnosis 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 Hepatic fibrosis, advanced fibrosis Chronic low back pain without sciatica, unspecified back pain laterality- Primary Left leg weakness Muscle weakness (generalized) Chronic back pain greater than 3 months duration documented in this encounter [facility] Work Phone: [phone] note* Diagnosis 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 Hepatic fibrosis, advanced fibrosis Chronic low back pain with sciatica, sciatica laterality unspecified, unspecified back pain laterality- Primary Left leg weakness Muscle weakness (generalized) Decreased sensation of leg Lumbar disc herniation Displacement of lumbar intervertebral disc without myelopathy documented in this encounter [facility] Work Phone: [phone] note* Diagnosis 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 Hepatic fibrosis, advanced fibrosis Acute midline low back pain without sciatica- Primary documented in this encounter [facility] Work Phone: [phone] note* Diagnosis 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 Hepatic fibrosis, advanced fibrosis Lumbar disc herniation with radiculopathy- Primary Displacement of lumbar intervertebral disc without myelopathy documented in this encounter [facility] Work Phone: [phone] note* Diagnosis 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 Hepatic fibrosis, advanced fibrosis Acute left-sided low back pain with left-sided sciatica- Primary Lumbar disc herniation with radiculopathy- Primary Displacement of lumbar intervertebral disc without myelopathy Lumbar disc herniation with radiculopathy Displacement of lumbar intervertebral disc without myelopathy documented in this encounter [facility] Work Phone: Evaluation note* Diagnosis 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 Hepatic fibrosis, advanced fibrosis Lumbar disc herniation with radiculopathy- Primary Displacement of lumbar intervertebral disc without myelopathy Acute bilateral low back pain without sciatica- Primary Lumbar disc herniation with radiculopathy Displacement of lumbar intervertebral disc without myelopathy documented in this encounter [facility] Work Phone: Evaluation note* Diagnosis 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 Hepatic fibrosis, advanced fibrosis Lumbar disc herniation with radiculopathy- Primary Displacement of lumbar intervertebral disc without myelopathy Acute left-sided low back pain with left-sided sciatica- Primary Lumbar disc herniation with radiculopathy Displacement of lumbar intervertebral disc without myelopathy documented in this encounter [facility] Work Phone: Evaluation note* Diagnosis Hepatitis [...] disc without myelopathy documented in this encounter [facility] Work Phone: Evaluation note* Diagnosis 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 Hepatic fibrosis, advanced fibrosis Lumbar disc herniation with radiculopathy- Primary Displacement of lumbar intervertebral disc without myelopathy Fall, initial encounter- Primary Chronic low back pain with left-sided sciatica, unspecified back pain laterality Lumbar disc herniation with radiculopathy Displacement of lumbar intervertebral disc without myelopathy documented in this encounter [facility] Work Phone: Evaluation note* Diagnosis 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 Hepatic fibrosis, advanced fibrosis Lumbar disc herniation with radiculopathy- Primary Displacement of lumbar intervertebral disc without myelopathy Chronic low back pain without sciatica, unspecified back pain laterality- Primary Lumbar disc herniation with radiculopathy Displacement of lumbar intervertebral disc without myelopathy documented in this encounter [facility] Work Phone: Evaluation note* Diagnosis 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 Hepatic fibrosis, advanced fibrosis Lumbar disc herniation with radiculopathy- Primary Displacement of lumbar intervertebral disc without myelopathy Lumbar disc herniation with radiculopathy Displacement of lumbar intervertebral disc without myelopathy documented in this encounter [facility] Work Phone: Evaluation note* Diagnosis 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 Hepatic fibrosis, advanced fibrosis Back pain Unspecified backache documented in this encounter [facility] Work Phone: Evaluation note* Diagnosis 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 Hepatic fibrosis, advanced fibrosis Encounter for management of wound VAC- Primary Postoperative pain after spinal surgery documented in this encounter [facility] Work Phone: Evaluation note* Diagnosis 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 Hepatic fibrosis, advanced fibrosis Primary hypertension- Primary Unspecified essential hypertension Hepatic fibrosis, advanced fibrosis Morbid obesity (Multi) Morbid obesity Chronic low back pain without sciatica, unspecified back pain laterality Current smoker documented in this encounter [facility] Work Phone: Evaluation note* Diagnosis Chronic back pain greater than 3 months duration Neuropathic pain Elbow sprain, right, initial encounter- Primary Acute exacerbation of chronic low back pain Chronic back pain greater than 3 months duration Neuropathic pain documented in this encounter [facility] Work Phone: Evaluation note* Diagnosis Chronic back pain greater than 3 months duration Neuropathic pain Contusion of sacrum, initial encounter- Primary Fall, initial encounter Chronic back pain greater than 3 months duration Neuropathic pain documented in this encounter [facility] Work Phone: Evaluation note* Diagnosis Acute post-operative pain- Primary Chronic back pain greater than 3 months duration Neuropathic pain Chronic back pain greater than 3 months duration Neuropathic pain Anxiety Anxiety state, unspecified Depression Depressive disorder, not elsewhere classified Obesity Obesity, unspecified Chronic low back pain Lumbago documented in this encounter [facility] Work Phone: Evaluation note* Diagnosis 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 Hepatic fibrosis, advanced fibrosis Rib pain on left side- Primary documented in this encounter [facility] Work Phone: [phone] note* Diagnosis Continuous opioid dependence (Multi)- Primary Opioid type dependence, continuous abuse Chronic hepatitis C without hepatic coma (Multi) Wound infection- Primary Posttraumatic wound infection not elsewhere classified documented in this encounter [facility] Work Phone: [phone] note* Diagnosis Continuous opioid dependence (Multi)- Primary Opioid type dependence, continuous abuse Chronic hepatitis C without hepatic coma (Multi) Wound dehiscence- Primary Disruption of external operation (surgical) wound Acute low back pain, unspecified back pain laterality, unspecified whether sciatica present Wound dehiscence Disruption of external operation (surgical) wound documented in this encounter [facility] Work Phone: [phone] note* Diagnosis Continuous opioid dependence (Multi)- Primary Opioid type dependence, continuous abuse Chronic hepatitis C without hepatic coma (Multi) Chronic back pain greater than 3 months duration Neuropathic pain Chronic back pain greater than 3 months duration- Primary Neuropathic pain Dehiscence of operative wound, subsequent encounter Chronic back pain greater than 3 months duration Neuropathic pain documented in this encounter [facility] Work Phone: [phone] note* Diagnosis Continuous opioid dependence (Multi)- Primary Opioid type dependence, continuous abuse Chronic hepatitis C without hepatic coma (Multi) Chronic back pain greater than 3 months duration Neuropathic pain documented in this encounter [facility] Work Phone: [phone] note* Diagnosis Continuous opioid dependence (Multi)- Primary Opioid type dependence, continuous abuse Chronic hepatitis C without hepatic coma (Multi) Dehiscence of wound of skin, subsequent encounter- Primary Postoperative pain Other acute postoperative pain documented in this encounter [facility] Work Phone: [phone] note* Diagnosis Continuous opioid dependence (Multi)- Primary Opioid type dependence, continuous abuse Chronic hepatitis C without hepatic coma (Multi) Acute midline low back pain without sciatica- Primary documented in this encounter [facility] Work Phone: [phone] note* Diagnosis Continuous opioid dependence (Multi)- Primary Opioid type dependence, continuous abuse Chronic hepatitis C without hepatic coma (Multi) Wound dehiscence- Primary Disruption of external operation (surgical) wound Acute bilateral low back pain without sciatica Infection of deep incisional surgical site after procedure, initial encounter Wound dehiscence Disruption of external operation (surgical) wound Postoperative infection, unspecified type, initial encounter Post-op pain Other acute postoperative pain Acute bilateral low back pain without sciatica documented in this encounter [facility] Work Phone: Evaluation note* Diagnosis Continuous opioid dependence (Multi)- Primary Opioid type dependence, continuous abuse Chronic hepatitis C without hepatic coma (Multi) Chronic back pain greater than 3 months duration- Primary Neuropathic pain Dehiscence of operative wound, subsequent encounter documented in this encounter [facility] Work Phone: Evaluation note* Diagnosis 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 Hepatic fibrosis, advanced fibrosis Closed fracture of sacrum, unspecified portion of sacrum, initial encounter (Multi)- Primary Acute left-sided low back pain with left-sided sciatica documented in this encounter [facility] Work Phone: Evaluation note* Diagnosis Continuous opioid dependence (Multi)- Primary Opioid type dependence, continuous abuse Chronic hepatitis C without hepatic coma (Multi) Dehiscence of wound of skin, subsequent encounter Postoperative pain Other acute postoperative pain Chronic back pain greater than 3 months duration documented in this encounter [facility] Work Phone: Evaluation note* Diagnosis Continuous opioid dependence (Multi)- Primary Opioid type dependence, continuous abuse Chronic hepatitis C without hepatic coma (Multi) Dehiscence of wound of skin, subsequent encounter- Primary Neuropathic pain documented in this encounter [facility] Work Phone: Evaluation note* Diagnosis Continuous opioid dependence (Multi)- Primary Opioid type dependence, continuous abuse Chronic hepatitis C without hepatic coma (Multi) Postoperative pain after spinal surgery- Primary documented in this encounter [facility] Work Phone: Evaluation note* Diagnosis Continuous opioid dependence (Multi)- Primary Opioid type dependence, continuous abuse Chronic hepatitis C without hepatic coma (Multi) Acute midline back pain, unspecified back location- Primary Acute exacerbation of chronic low back pain documented in this encounter [facility] Work Phone: Evaluation note* Diagnosis Continuous opioid dependence (Multi)- Primary Opioid type dependence, continuous abuse Chronic hepatitis C without hepatic coma (Multi) Fall, initial encounter- Primary Closed head injury, initial encounter Contusion of right shoulder, initial encounter Degenerative arthritis of thumb, right documented in this encounter [facility] Work Phone: [phone] note* Diagnosis Continuous opioid dependence (Multi)- Primary Opioid type dependence, continuous abuse Chronic hepatitis C without hepatic coma (Multi) Encounter for management of wound VAC- Primary documented in this encounter [facility] Work Phone: [phone] note* Diagnosis 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 Hepatic fibrosis, advanced fibrosis Lumbar disc herniation with radiculopathy- Primary Displacement of lumbar intervertebral disc without myelopathy Status post lumbar discectomy Other postprocedural status documented in this encounter [facility] Work Phone: [phone] note* Diagnosis Continuous opioid dependence (Multi)- Primary Opioid type dependence, continuous abuse Chronic hepatitis C without hepatic coma (Multi) Encounter for management of wound VAC- Primary Chronic low back pain without sciatica, unspecified back pain laterality documented in this encounter [facility] Work Phone: [phone] note* Diagnosis Continuous opioid dependence (Multi)- Primary Opioid type dependence, continuous abuse Chronic hepatitis C without hepatic coma (Multi) Neuropathic pain- Primary Dehiscence of wound of skin, subsequent encounter documented in this encounter [facility] Work Phone: [phone] note* Diagnosis Continuous opioid dependence (Multi)- Primary Opioid type dependence, continuous abuse Chronic hepatitis C without hepatic coma (Multi) Post-operative pain- Primary Other acute postoperative pain Visit for wound check documented in this encounter [facility] Work Phone: Evaluation note* Diagnosis Continuous opioid dependence (Multi)- Primary Opioid type dependence, continuous abuse Chronic hepatitis C without hepatic coma (Multi) Skin irritation- Primary Unspecified disorder of skin and subcutaneous tissue Acute left-sided low back pain without sciatica Acute post-operative pain documented in this encounter [facility] Work Phone: Evaluation note* Diagnosis Continuous opioid dependence (Multi)- Primary Opioid type dependence, continuous abuse Chronic hepatitis C without hepatic coma (Multi) Low back pain with sciatica, sciatica laterality unspecified, unspecified back pain laterality, unspecified chronicity- Primary documented in this encounter [facility] Work Phone: Evaluation note* Diagnosis Continuous opioid dependence (Multi)- Primary Opioid type dependence, continuous abuse Chronic hepatitis C without hepatic coma (Multi) Acute exacerbation of chronic low back pain- Primary Contusion of lower back, initial encounter documented in this encounter [facility] Work Phone: Evaluation note* Diagnosis Continuous opioid dependence (Multi)- Primary Opioid type dependence, continuous abuse Chronic hepatitis C without hepatic coma (Multi) Chronic hepatitis C without hepatic coma (Multi) documented in this encounter [facility] Work Phone: Evaluation note* Diagnosis 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 Hepatic fibrosis, advanced fibrosis Bilateral low back pain without sciatica, unspecified chronicity- Primary Fall, initial encounter documented in this encounter [facility] Work Phone: Evaluation note* Diagnosis 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 Hepatic fibrosis, advanced fibrosis Lumbar strain, initial encounter- Primary documented in this encounter [facility] Work Phone: Evaluation note* Diagnosis 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 Hepatic fibrosis, advanced fibrosis Chronic low back pain with left-sided sciatica, unspecified back pain laterality - Primary documented in this encounter [facility] Work Phone: Evaluation note* Diagnosis 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 Hepatic fibrosis, advanced fibrosis Postlaminectomy syndrome, lumbar region- Primary documented in this encounter [facility] Work Phone: Evaluation note* Diagnosis NO SHOW- Primary documented in this encounter [facility] note* Diagnosis Lumbar radiculopathy- Primary Thoracic or lumbosacral neuritis or radiculitis, unspecified S/P lumbar discectomy Other postprocedural status documented in this encounter [facility] note* Diagnosis 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 Hepatic fibrosis, advanced fibrosis Acute on chronic back pain- Primary documented in this encounter [facility] Work Phone: Evaluation note* Diagnosis Postoperative seroma of musculoskeletal structure after musculoskeletal procedure- [facility] 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 Hepatic fibrosis, advanced fibrosis Chronic low back pain with left-sided sciatica, unspecified back pain laterality - Primary Chronic low back pain with left-sided sciatica, unspecified back pain laterality Back pain with radiation Unspecified backache Postoperative pain after spinal surgery Chronic pain syndrome documented in this encounter [facility] Work Phone: Evaluation note* Diagnosis 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 Hepatic fibrosis, advanced fibrosis Chronic low back pain with left-sided sciatica, unspecified back pain laterality - Primary Chronic low back pain with left-sided sciatica, unspecified back pain laterality Back pain with radiation Unspecified backache Postoperative pain after spinal surgery Chronic pain syndrome Lumbar disc herniation with radiculopathy- Primary Displacement of lumbar intervertebral disc without myelopathy documented in this encounter [facility] Work Phone: Evaluation note* Diagnosis 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 Hepatic fibrosis, advanced fibrosis Chronic low back pain with left-sided sciatica, unspecified back pain laterality - Primary Chronic low back pain with left-sided sciatica, unspecified back pain laterality Back pain with radiation Unspecified backache Postoperative pain after spinal surgery Chronic pain syndrome Acute exacerbation of chronic low back pain- Primary documented in this encounter [facility] Work Phone: Evaluation note* Diagnosis 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 Hepatic fibrosis, advanced fibrosis Chronic low back pain with left-sided sciatica, unspecified back pain laterality - Primary Chronic low back pain with left-sided sciatica, unspecified back pain laterality Back pain with radiation Unspecified backache Postoperative pain after spinal surgery Chronic pain syndrome Chronic midline low back pain without sciatica- Primary Chronic midline low back pain without sciatica Chronic low back pain with left-sided sciatica, unspecified back pain laterality Chronic pain syndrome Back pain with radiation Unspecified backache documented in this encounter [facility] Work Phone: Evaluation note* Diagnosis 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 Hepatic fibrosis, advanced fibrosis Chronic low back pain with left-sided sciatica, unspecified back pain laterality - Primary Chronic low back pain with left-sided sciatica, unspecified back pain laterality Back pain with radiation Unspecified backache Postoperative pain after spinal surgery Chronic pain syndrome Acute exacerbation of chronic low back pain- Primary documented in this encounter [facility] Work Phone: Evaluation note* Diagnosis 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 Hepatic fibrosis, advanced fibrosis Chronic low back pain with left-sided sciatica, unspecified back pain laterality - Primary Chronic low back pain with left-sided sciatica, unspecified back pain laterality Back pain with radiation Unspecified backache Postoperative pain after spinal surgery Chronic pain syndrome Acute exacerbation of chronic low back pain- Primary documented in this encounter [facility] Work Phone: Evaluation note* Diagnosis Chronic left-sided low back pain with left-sided sciatica- Primary [facility] Diagnosis 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 Hepatic fibrosis, advanced fibrosis Chronic low back pain with left-sided sciatica, unspecified back pain laterality - Primary Chronic low back pain with left-sided sciatica, unspecified back pain laterality Back pain with radiation Unspecified backache Postoperative pain after spinal surgery Chronic pain syndrome Acute on chronic back pain- Primary Back pain, unspecified back location, unspecified back pain laterality, unspecified chronicity Chronic pain syndrome Acute on chronic back pain Chronic low back pain with left-sided sciatica, unspecified back pain laterality Back pain with radiation Unspecified backache Lumbar disc herniation with radiculopathy Displacement of lumbar intervertebral disc without myelopathy Chronic low back pain without sciatica, unspecified back pain laterality Continuous opioid dependence (Multi) Opioid type dependence, continuous abuse Lumbar radiculopathy, acute Chronic back pain greater than 3 months duration documented in this encounter [facility] Work Phone: Evaluation note* Diagnosis Chronic midline low back pain, unspecified whether sciatica present- Primary [facility] Diagnosis Chronic bilateral low back pain without sciatica- Primary [facility] Diagnosis 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 Hepatic fibrosis, advanced fibrosis Chronic low back pain with left-sided sciatica, unspecified back pain laterality - Primary Chronic low back pain with left-sided sciatica, unspecified back pain laterality Back pain with radiation Unspecified backache Postoperative pain after spinal surgery Chronic pain syndrome 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 Hepatic fibrosis, advanced fibrosis documented in this encounter [facility] Work Phone: Evaluation note* Diagnosis 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 Hepatic fibrosis, advanced fibrosis Chronic low back pain with left-sided sciatica, unspecified back pain laterality - Primary Chronic low back pain with left-sided sciatica, unspecified back pain laterality Back pain with radiation Unspecified backache Postoperative pain after spinal surgery Chronic pain syndrome Chronic left-sided low back pain, unspecified whether sciatica present- Primary Paresthesia of left leg Disturbance of skin sensation documented in this encounter [facility] Work Phone: Evaluation note* Diagnosis Chronic bilateral low back pain, unspecified whether sciatica present- Primary documented [facility]* Diagnosis Failed back syndrome- Primary Other unspecified back disorder Failed back syndrome- Primary Other unspecified back disorder Acute exacerbation of chronic low back pain- Primary [facility] Diagnosis Failed back syndrome- Primary Other unspecified back disorder Failed back syndrome- Primary Other unspecified back disorder Acute exacerbation of chronic low back pain- Primary Left leg numbness Disturbance of skin sensation Failed back syndrome Other unspecified back disorder documented [facility] encounter [facility]* Diagnosis Failed back syndrome- Primary Other unspecified back disorder Failed back syndrome- Primary Other unspecified back disorder Spinal stenosis of lumbar region, unspecified whether neurogenic claudication present- Primary Acute cystitis without hematuria Acute cystitis documented in this encounter [facility]* Diagnosis Failed back syndrome- Primary Other unspecified back disorder Failed back syndrome- Primary Other unspecified back disorder Acute exacerbation of chronic low back pain- Primary [facility] Diagnosis 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 Hepatic fibrosis, advanced fibrosis Chronic low back pain with left-sided sciatica, unspecified back pain laterality - Primary Chronic low back pain with left-sided sciatica, unspecified back pain laterality Back pain with radiation Unspecified backache Postoperative pain after spinal surgery Chronic pain syndrome Chronic left-sided low back pain with left-sided sciatica- Primary documented in this encounter [facility] Work Phone: Evaluation note* Diagnosis Failed back syndrome- Primary Other unspecified back disorder Failed back syndrome- Primary Other unspecified back disorder Acute exacerbation of chronic low back pain- Primary documented in this encounter [facility]* Diagnosis Failed back syndrome- Primary Other unspecified back disorder Failed back syndrome- Primary Other unspecified back disorder Acute exacerbation of chronic low back pain- Primary documented in this encounter [facility]* Diagnosis Failed back syndrome- Primary Other unspecified back disorder Failed back syndrome- Primary Other unspecified back disorder Acute exacerbation of chronic low back pain- Primary Sciatica of left side Sciatica documented in this encounter [facility]* Diagnosis Failed back syndrome- Primary Other unspecified back disorder Failed back syndrome- Primary Other unspecified back disorder Failed back syndrome- Primary Other unspecified back disorder Chronic left-sided low back pain with left-sided sciatica- Primary documented in this encounter [facility]* Diagnosis Failed back syndrome- Primary Other unspecified back disorder Failed back syndrome- Primary Other unspecified back disorder Failed back syndrome- Primary Other unspecified back disorder Failed back syndrome- Primary Other unspecified back disorder Acute exacerbation of chronic low back pain- Primary H/O degenerative disc disease Personal history of other musculoskeletal disorders Failed back syndrome Other unspecified back disorder documented [facility]* Diagnosis Failed back syndrome- Primary Other unspecified back disorder Failed back syndrome- Primary Other unspecified back disorder Failed back syndrome- Primary Other unspecified back disorder Failed back syndrome- Primary Other unspecified back disorder Chronic left-sided low back pain with left-sided sciatica- Primary Failed back syndrome Other unspecified back disorder documented in this encounter [facility]* Diagnosis Failed back syndrome- Primary Other unspecified back disorder Failed back syndrome- Primary Other unspecified back disorder Failed back syndrome- Primary Other unspecified back disorder Failed back syndrome- Primary Other unspecified back disorder Acute exacerbation of chronic low back pain- Primary Sciatica of left side Sciatica Chronic left-sided low back pain with left-sided sciatica Elevated blood pressure reading Elevated blood pressure reading without diagnosis of hypertension Failed back syndrome Other unspecified back disorder documented in this encounter [employer] [facility] [facility]* Diagnosis Failed back syndrome- Primary Other unspecified back disorder Failed back syndrome- Primary Other unspecified back disorder Failed back syndrome- Primary Other unspecified back disorder Failed back syndrome- Primary Other unspecified back disorder Failed back syndrome- Primary Other unspecified back disorder Chronic midline low back pain with bilateral sciatica- Primary Failed back syndrome Other unspecified back disorder documented in this encounter [facility] [employer] [facility] [facility]* Diagnosis Failed back syndrome- Primary Other unspecified back disorder Failed back syndrome- Primary Other unspecified back disorder Failed back syndrome- Primary Other unspecified back disorder Failed back syndrome- Primary Other unspecified back disorder Failed back syndrome- Primary Other unspecified back disorder documented in this encounter [facility] [employer] [facility] [facility]* Diagnosis Failed back syndrome- Primary Other unspecified back disorder Failed back syndrome- Primary Other unspecified back disorder Failed back syndrome- Primary Other unspecified back disorder Failed back syndrome- Primary Other unspecified back disorder Failed back syndrome- Primary Other unspecified back disorder Chronic midline low back pain without sciatica- Primary documented in this encounter [employer] [facility] [facility]* Diagnosis Failed back syndrome- Primary Other unspecified back disorder Failed back syndrome- Primary Other unspecified back disorder Failed back syndrome- Primary Other unspecified back disorder Failed back syndrome- Primary Other unspecified back disorder Failed back syndrome- Primary Other unspecified back disorder Acute exacerbation of chronic low back pain- Primary documented in this encounter [facility] [employer] [facility]* Diagnosis Failed back syndrome- Primary Other unspecified back disorder Failed back syndrome- Primary Other unspecified back disorder Failed back syndrome- Primary Other unspecified back disorder Failed back syndrome- Primary Other unspecified back disorder Failed back syndrome- Primary Other unspecified back disorder Acute exacerbation of chronic low back pain- Primary documented in this encounter [employer] [facility]* Diagnosis Failed back syndrome- Primary Other unspecified back disorder Failed back syndrome- Primary Other unspecified back disorder Failed back syndrome- Primary Other unspecified back disorder Failed back syndrome- Primary Other unspecified back disorder Failed back syndrome- Primary Other unspecified back disorder Acute exacerbation of chronic low back pain- Primary Elevated blood pressure reading Elevated blood pressure reading without diagnosis of hypertension documented in this encounter [employer] [facility] [facility]* Diagnosis 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 Hepatic fibrosis, advanced fibrosis Chronic low back pain with left-sided sciatica, unspecified back pain laterality - Primary Chronic low back pain with left-sided sciatica, unspecified back pain laterality Back pain with radiation Unspecified backache Postoperative pain after spinal surgery Chronic pain syndrome Acute exacerbation of chronic low back pain- Primary documented in this encounter [facility] Work Phone: Evaluation note* Diagnosis Failed back syndrome- Primary Other unspecified back disorder Failed back syndrome- Primary Other unspecified back disorder Failed back syndrome- Primary Other unspecified back disorder Failed back syndrome- Primary Other unspecified back disorder Failed back syndrome- Primary Other unspecified back disorder Acute exacerbation of chronic low back pain- Primary Drug-seeking behavior Other, mixed, or unspecified nondependent drug abuse, unspecified [facility] Diagnosis Failed back syndrome- Primary Other unspecified back disorder Failed back syndrome- Primary Other unspecified back disorder Failed back syndrome- Primary Other unspecified back disorder Failed back syndrome- Primary Other unspecified back disorder Failed back syndrome- Primary Other unspecified back disorder Failed back syndrome- Primary Other unspecified back disorder Failed back syndrome Other unspecified back disorder Failed back syndrome Other unspecified back disorder [facility]* Diagnosis Failed back syndrome- Primary Other unspecified back disorder Failed back syndrome- Primary Other unspecified back disorder Failed back syndrome- Primary Other unspecified back disorder Failed back syndrome- Primary Other unspecified back disorder Failed back syndrome- Primary Other unspecified back disorder Pain Generalized pain [facility]* Diagnosis Acute midline low back pain with left-sided sciatica- Primary [facility] Diagnosis Chronic low back pain, unspecified back pain laterality, unspecified whether sciatica present- Primary [facility] N[facility] - Reported* Type Description Date Medical History depression/ anxiety Medical HistoryendometrosisMedical HistoryDUBMedical HistorymenorrhagiaMedical Historyirregular mensesMedical HistorymigraineMedical HistoryHx cocaine and marijuana abuse - last used 2010Surgical Historylaparoscopies x8 for endometrosisSurgical Historytubal [id number] Historytubes in ears x4 Surgical Historytonsils & adneoidsSurgical HistoryTAH, [id number] [employer] Other History general Narrative - Reported* Type Description Date Medical History depression/ anxiety Medical HistoryendometrosisMedical HistoryDUBMedical HistorymenorrhagiaMedical Historyirregular mensesMedical HistorymigraineMedical HistoryHx cocaine and marijuana abuse - last used 2010Surgical Historylaparoscopies x8 for endometrosisSurgical Historytubal [id number] Historytubes in ears x4 Surgical Historytonsils & adneoidsSurgical HistoryTAH, [id number] Historysee surg Hx [employer] Other Hospital Discharge instructions No data available for this section [facility] Additional Instructions Return for new or worsening symptoms [facility]charge instructions Additional Instructions Take Bentyl and simethicone as prescribed for mild to moderate pain. Take Percocet as needed for severe pain. Increase your intake of fluids. Follow-up with a project control officer listed below for ongoing evaluation possible colonoscopy regarding your lower GI bleeding. Return to emergency department if you develop any fevers chills or intractable nausea vomiting, severe worsening bleeding, shortness of breath fatigue with bleeding. Follow-up with the PCP for reevaluation in 3 to 5 days days.[facility] Work Phone: Hospital Discharge instructions Additional Instructions Take the Bentyl as needed for abdominal cramping pain, use Zofran for nausea, start taking Carafate as well Call the GI doctor to see if he can be seen sooner Return for worsening abdominal pain or bleeding, fevers, continued vomiting, lightheadednessSub[facility] Work Phone: Hospital Discharge instructions Additional Instructions [facility]: Hospital Discharge instructions Additional [...] your legs high fever or any other concernsSub[facility] & [facility] Work Phone: Hospital Discharge instructions Additional [...] bowel control high fever or any other concernsSub[facility] Work Phone: Hospital Discharge instructions Additional Instructions Take 1 oxycodone every 6 hours for severe pain Continue your other medications Follow-up with the neurosurgeon and physical therapy Return to the ER for more severe pain high fever weakness in your legs loss of bladder bowel control or any other concernsSub[facility] Work Phone: Hospital Discharge instructions Additional Instructions Take the oxycodone as prescribed to completed Follow-up with your doctors Return to the ER for worsening pain high fever weakness in your legs loss of bladder bowel control or any other concernsSub[facility] Work [facility]: Hospital Discharge instructions Additional Instructions Follow-up pain management as discussed Take Relafen if needed for pain Gentle range of motion Return here if any problems persist or worsen including loss of bowel bladder control, fevers, chills, numbness, tingling or other concernsSub[facility] Work Phone: Hospital Discharge instructions Additional [...] bowel control high fever or any other concernsSub[facility] Work Phone: Hospital Discharge instructions Additional [...] you pain medicine for the next several days.[facility] Work Phone: hospital Discharge instructions Additional Instructions Take 1 oxycodone every 6 hours for severe pain May apply ice warm moist heat to sore areas Gentle stretching Follow-up with your [facility]Sub[facility]: hospital Discharge instructions Additional Instructions Avoid heavy lifting Take your antibiotic as instructed until gone for your UTI Is important that you call Dr. Meza and Dr. Rivero's office both tomorrow to let them know of your symptoms and discuss treatment plan Return here if any problems persist or worsen*[facility] Work Phone: hospital Discharge instructions Additional Instructions Take the dexamethasone once a day for 7 days Continue your other medication May use ice warm moist heat Follow-up with pain management and neurosurgery Return to the ER for worsening symptoms fever more severe pain or any other concernsSub[facility] Work Phone: hospital Discharge instructions Additional Instructions On oxycodone every 6 hours as needed for pain Ice warm moist heat Continue your other medications Follow-up with your doctors as scheduled Return to the ER worsening pain high fever weakness in the legs loss of bladder bowel control or any other concernsSub[facility] Work Phone: hospital Discharge instructions Additional Instructions Continue cyclobenzaprine 3 times a day as needed Oxycodone every 6 hours as needed Follow-up with the specialist as scheduled Return to the ER for leg weakness loss of bladder bowel control high fever or any other concernsSub[facility] Work Phone: hospital Discharge instructions Additional Instructions 1. Apply moist heat to affected area 2. Avoid lifting, pushing or pulling more than 10 pounds 3. Keep appointment with neurosurgery/pain management as scheduled in March 28. May apply OTC Lidocaine patches to affected area to help with painSub[facility] Work Phone: Hospital Discharge instructions Additional Instructions Avoid lifting, pushing, pulling continue to try to reach neurosurgeonSub[facility] Work Phone: Hospital Discharge instructions Additional Instructions Continue your other medication Follow-up with your providers Return to the ER for worsening back pain high fever weakness in your legs loss of bladder bowel control or any other concernsSub[facility] Work Phone: Hospital Discharge instructions Additional Instructions Follow-up with Ortho as scheduled Take Percocet as needed for pain, do not drive, drink, operate heavy machinery while takingSub[facility] Hospital & [facility] Work Phone: Hospital Discharge instructions* Attachments The following attachments cannot be sent through Care Everywhere. * Managing acute pain at home (Malagasy) [facility] instructions Additional Instructions Continue your regular medication Follow-up with your family doctor Return to the ER for worsening pain weakness in your legs loss of bladder bowel control high fever or any other concernsSub[facility] Work Phone: Hospital Discharge instructions Additional Instructions Continue Flexeril for muscle spasms at home Continue oxycodone as prescribed at home Follow-up with pain management Rest Apply ice Return here if any problems persist or worsenSub[facility] Community [facility] Work Phone: Hospital Discharge instructions* Attachments The following attachments cannot be sent through Care Everywhere. * Back: Strain (Malagasy) [facility] Additional Instructions Call Dr. Adams's office your neurosurgeon tomorrow for follow-up as soon as possible.[facility] Work Phone: Hospital Discharge instructions Additional Instructions If your symptoms return/worsen or you develop any further concerns or symptoms please see your doctor or return to the emergency department immediately. Please be sure to follow-up with your surgeon [facility] Work Phone: Hospital Discharge instructions Additional Instructions Please take antibiotics as prescribed and follow-up with your primary care provider. Please keep the area on the back covered with Neosporin or bacitracin and a bandage. Please change this dressing twice a day.[facility] Work Phone: Hospital Discharge instructions Additional Instructions Follow-up with your surgeon as planned tomorrow at 930 Return here if you develop any fevers, chills, pain or any otherSub[facility] Work [facility]: Hospital Discharge instructions* Attachments The following attachments cannot be sent through Care Everywhere. * Chronic pain (Malagasy) * Opioids for Short-Term Treatment of Pain ED (Malagasy) [facility]* Attachments The following attachments cannot be sent through Care Everywhere. * Sciatica ED (Malagasy) [facility] Discharge instructions* Attachments The following attachments cannot be sent through Care Everywhere. * Low Back Pain Discharge Instructions (Malagasy) [facility] Discharge instructions Additional Instructions Continue pain regimen that you have at home Follow-up with your surgeon/PCP Return here if any problems persist or worsenSub[facility] Work Phone: Hospital Discharge instructions* Attachments The following attachments cannot be sent through Care Everywhere. * Low Back Pain Discharge Instructions (Malagasy) [facility] Discharge instructions Additional Instructions Continue home medication Follow-up with your surgeon as scheduled Return to the ER for complete loss of function of the left leg uncontrollable bladder or bowel or any other concernsSub[facility] Work Phone: Hospital Discharge instructions* Attachments The following attachments cannot be sent through Care Everywhere. * Low back pain in adults (Malagasy) [facility] Work [facility] Discharge instructions* Attachments The following attachments cannot be sent through Care Everywhere. * Low Back Pain Discharge Instructions (Malagasy) * Elbow Sprain Discharge Instructions (Malagasy) [facility] Work [facility] Discharge instructions* Attachments The following attachments cannot be sent through Care Everywhere. * Preventing Falls ED (Malagasy) * Coccyx Injury (Malagasy) [facility] Work [facility] Discharge instructions* Attachments The following attachments cannot be sent through Care Everywhere. * Chronic pain (Malagasy) * Low Back Pain Discharge Instructions (Malagasy) [facility] Work [facility] Discharge instructions* Attachments The following attachments cannot be sent through Care Everywhere. * Chronic pain (Malagasy) [facility] Work [facility]: Hospital Discharge instructions* Attachments The following attachments cannot be sent through Care Everywhere. * Managing pain after surgery (Malagasy) * Chronic pain (Malagasy) [facility] Work [facility] Discharge instructions* Attachments The following attachments cannot be sent through Care Everywhere. * Managing acute pain at home (Malagasy) * Itchy Skin (Malagasy) [facility] Work [facility]: Hospital Discharge instructions* Attachments The following attachments cannot be sent through Care Everywhere. * Chronic pain (Malagasy) * Managing acute pain at home (Malagasy) * Taking care of bruises (Malagasy) [facility] Work [facility]: Hospital Discharge instructions* Attachments The following attachments cannot be sent through Care Everywhere. * Low Back Pain Discharge Instructions (Malagasy) documented [facility] Work Phone: Hospital Discharge instructions* Attachments The following attachments cannot be sent through Care Everywhere. * Back Muscle Strain (Malagasy) [facility] Work Phone: Hospital Discharge instructions Additional Instructions Continue your pain regimen as prescribed at home [facility]up with [facility] neurosurgeon as planned Return here if you have any problems that persist or worsen as discussed [facility] Work Phone: Hospital Discharge instructions* Attachments The following attachments cannot be sent through Care Everywhere. * Managing acute pain at home (Malagasy) [facility]* Attachments The following attachments cannot be sent through Care Everywhere. * Low Back Pain Discharge Instructions (Malagasy) [facility] Work [facility] Discharge instructions Additional Instructions Follow-up with pain management/[facility] for your pain stimulator as planned on the Continue your pain regimen at home Return if any problems persist or worseSub[facility] Work Phone: Hospital Discharge instructions Additional Instructions Rest Follow-up with your primary care doctor and pain management for your pain control Have your stimulator placed on the [facility] Work Phone: Hospital Discharge instructions Additional Instructions Continue pain regimen at home Call pain management tomorrow for med adjustments until your appointment on July 15 Return if any problems persist or worsen Rest Avoid heavy liftingSuburban Community Hospital & [facility]: Hospital Discharge instructions* Attachments The following attachments cannot be sent through Care Everywhere. * Back Pain (Malagasy) documented in [facility] encounterPro[facility] Hospital[facility] Discharge instructions Additional Instructions Continue taking your pain regimen that you have at home Follow-up pain management Return here if any problems persist or worseSub[facility] Hospital Discharge instructions Additional Instructions Continue pain regimen at home Follow-up with your pain management Return here if any problems persist or [facility]senSub[facility] Discharge instructions Additional Instructions Follow-up with your doctor tomorrow as planned discussed pain control Follow-up with pain management as discussed Keep your appointment to have your neural stimulator placed on 07/15/2024 [facility] Work Phone: Hospital Discharge instructions Additional Instructions Is important you follow with your PCP and pain management as you planned Any pain control needs to be scheduled through them Return here if any problems persist or worsen Continue taking your tramadol as prescribed [facility]* Attachments The following attachments cannot be sent through Care Everywhere. * Back Pain (Malagasy) * Back: Stretches: Exercises (Malagasy) [facility]* Attachments The following attachments cannot be sent through Care Everywhere. * Numbness and Tingling (Malagasy) [facility] in [facility]* Attachments The following attachments cannot be sent through Care Everywhere. * UTI (Urinary Tract Infection): Female (Malagasy) * Degenerative Disc Disease: General Info (Malagasy) documented in this [facility]* Attachments The following attachments cannot be sent through Care Everywhere. * Back Pain (Malagasy) documented in [facility] Dis[facility] instructions Additional Instructions Continue pain regimen as instructed Follow with pain management to have your pain pump implanted on Saturday Return here if any problems persist or worsenSub[facility]: [facility] Discharge instructions* Attachments The following attachments cannot be sent through Care Everywhere. * Back Pain (Malagasy) * Low Back Pain: Exercises (Malagasy) documented in [facility] Dis[facility] instructions Additional Instructions You were seen and evaluated in the ED for a musculoskeletal injury. It is important to treat your symptoms with RICE therapy. This consists of Resting when available, Icing the affected area, wearing Compression if applicable such as a sleeve or BLADIMIR-bandage, and Elevating the affected extremity. Continue to use Tylenol and other anti-inflammatories such as ibuprofen, naproxen, diclofenac, etc It is very important that you follow up with your primary care provider in the next 1-2 days unless instructed to do otherwise. If you do not have a primary care provider, you can contact the [facility] and ask about being established for primary care services. If you require specialist follow up, such as with an orthopedic physician, laboratory director, urologist, or other medical specialty, you should contact the specialty clinic as soon as possible to schedule a follow up appointment. If you are established with a specialist, you can contact your preferred physician for follow up. If you are not already established with the specialist you need, you may have contact information provided to you with these discharge instructions. If you are being prescribed medications, take exactly as prescribed. Antibiotics, if prescribed, should be taken until the entire course is completed. You should not have left over antibiotics. Continue to take any previously prescribed home medications unless instructed otherwise. If you are experiencing fever or mild to moderate pain, you should first take Tylenol or ibuprofen available zrjh-ath-rvoqqzi. Medications, if prescribed to treat pain from the emergency department, are intended to provide relief for severe pain that is not relieved by other methods of pain relief, you should use these medications cautiously as many are known to cause sedation/sleepiness, increased risk for falls, and other effects such as constipation. If your symptoms worsen please return to the ED or if you have any other concernsSub[facility] Phone: [facility] Discharge instructions* Attachments The following attachments cannot be sent through Care Everywhere. * Low Back Pain: Exercises (Malagasy) * Back Pain (Malagasy) * Blood Pressure: Elevated (Malagasy) documented in this encounterP[facility] Dis[facility] instructions* Attachments The following attachments cannot be sent through Care Everywhere. * Back Pain (Malagasy) [facility] Additional Instructions Follow-up with your pain management to have your pain pump placed on the 17th as planned Avoid heavy lifting Rest Continue pain regimen as scheduled at home Return here if any problems persist or worsenSub[facility] Work Phone: [facility] Discharge instructions* Attachments The following attachments cannot be sent through Care Everywhere. * Back Pain (Malagasy) documented in this encounterP[facility] Dis[facility] instructions Additional Instructions Follow-up with pain management as soon as possibleSub[facility]: [facility]* Attachments The following attachments cannot be sent through Care Everywhere. * Back Pain (Malagasy) documented in this encounterP[facility] Dis[facility] instructions Additional Instructions 1. Take medications as directed 2. May apply heat or ice to affected area for 20 minutes each hour; avoid prolonged use of heating pads as this may worsen inflammation 3. Gentle stretching as able 4. Follow up with pain management tomorrow to discuss issue of prescription refill 5. Avoid pushing, pulling, lifting anything greater than 10 pounds until seen by pcp or specialist 6. Return to ER for any worsening of symptoms, including loss of bowel or bladder function or inner thigh numbnessSub[facility] Phone: Hospital Discharge instructions Additional Instructions Continue muscle relaxers and your Percocets at home as ordered Follow-up in see if you could have your stimulator he placed sooner Rest Avoid heavy lifting Ice to affected area for the next 24 hours rotate heat Return here if any problems persist or worseSub[facility] Phone: Hospital Discharge instructions* Attachments The following attachments cannot be sent through Care Everywhere. * Low Back Pain Discharge Instructions (Malagasy) [facility] Discharge instructions Additional Instructions Follow-up with your pain management Avoid heavy lifting Avoid extraneous walking Return here if any problems persistSub[facility]: Hospital Discharge instructions* Attachments The following attachments cannot be sent through Care Everywhere. * Back Pain (Malagasy) documented in this encounterPremier HealthProgress note No data available for this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 left leg Tobyr y 2024 7:23pm back pain May 25, 2024 7:07 pm Lower back pain NKI May 28, 2024 7:56 pm back pain May 30, 2024 8:52 pm low back pain June 10, 2024 8:0 7pm Back Pain, NKI June 17, 2024 9:1 9pm Lower back pain NKI June 26, 2024 8:59 pm lower back pain June 29, 2024 7:45 pm back pain July 04, 2024 8:4 9pm lower back pain July 07, 2024 7:3 3pm lower back pain July 10, 2024 8:2 1pm r side pain, vomiting July 11, 2024 8 :53pm Lower back pain July 13, 2024 7:1 3pm Chief Complaint Admit Date back pain May 25, 2024 7:07 pm Lower back pain NKI May 28, 2024 7:56 pm back pain May 30, 2024 8:52 pm low back pain June 10, 2024 8:0 7pm Back Pain, NKI June 17, 2024 9:1 9pm Lower back pain NKI June 26, 2024 8:59 pm lower back pain June 29, 2024 7:45 pm back pain July 04, 2024 8:4 9pm lower back pain July 07, 2024 7:3 3pm lower back pain July 10, 2024 8:2 1pm r side pain, vomiting July 11, 2024 8 :53pm Lower back pain July 13, 2024 7:1 3pm lower back pain August 13, 2024 8:43p m Back Pain - NKI August 16, 2024 7:38p m Chief Complaint Admit Date back pain May 30, 2024 8:52 pm low back pain June 10, 2024 8:0 7pm Back Pain, NKI June 17, 2024 9:1 9pm Lower back pain NKI June 26, 2024 8:59 pm lower back pain June 29, 2024 7:45 pm back pain July 04, 2024 8:4 9pm lower back pain July 07, 2024 7:3 3pm lower back pain July 10, 2024 8:2 1pm r side pain, vomiting July 11, 2024 8 :53pm Lower back pain July 13, 2024 7:1 3pm lower back pain August 13, 2024 8:43p m Back Pain - NKI August 16, 2024 7:38p m Lower back pain NKI August 27, 2024 7:52p m Chief Complaint Admit Date low back pain June 10, 2024 8:0 7pm Back Pain, NKI June 17, 2024 9:1 9pm Lower back pain NKI June 26, 2024 8:59 pm lower back pain June 29, 2024 7:45 pm back pain July 04, 2024 8:4 9pm lower back pain July 07, 2024 7:3 3pm lower back pain July 10, 2024 8:2 1pm r side pain, vomiting July 11, 2024 8 :53pm Lower back pain July 13, 2024 7:1 3pm lower back pain August 13, 2024 8:43p m Back Pain - NKI August 16, 2024 7:38p m Lower back pain NKI August 27, 2024 7:52p m Back Pain August 31, 2024 8:16p m Chief Complaint Admit Date Lower back pain NKI June 26, 2024 8:59 pm lower back pain June 29, 2024 7:45 pm back pain July 04, 2024 8:4 9pm lower back pain July 07, 2024 7:3 3pm lower back pain July 10, 2024 8:2 1pm r side pain, vomiting July 11, 2024 8 :53pm Lower back pain July 13, 2024 7:1 3pm lower back pain August 13, 2024 8:43p m Back Pain - NKI August 16, 2024 7:38p m Lower back pain NKI August 27, 2024 7:52p m Back Pain August 31, 2024 8:16p m Back pain NKI September 12, 2024 7:03 pm lower back pain September 15, 2024 7:16 pm Lower back pain September 23, 2024 7:10p m Chief Complaint Admit Date back pain July 04, 2024 8:4 9pm lower back pain July 07, 2024 7:3 3pm lower back pain July 10, 2024 8:2 1pm r side pain, vomiting July 11, 2024 8 :53pm Lower back pain July 13, 2024 7:1 3pm lower back pain August 13, 2024 8:43p m Back Pain - NKI August 16, 2024 7:38p m Lower back pain NKI August 27, 2024 7:52p m Back Pain August 31, 2024 8:16p m Back pain NKI September 12, 2024 7:03 pm lower back pain September 15, 2024 7:16 pm Lower back pain September 23, 2024 7:10p m Back Pain September 28, 2024 7:38p m Chief Complaint Admit Date lower back pain July 07, 2024 7:3 3pm lower back pain July 10, 2024 8:2 1pm r side pain, vomiting July 11, 2024 8 :53pm Lower back pain July 13, 2024 7:1 3pm lower back pain August 13, 2024 8:43p m Back Pain - NKI August 16, 2024 7:38p m Lower back pain NKI August 27, 2024 7:52p m Back Pain August 31, 2024 8:16p m Back pain NKI September 12, 2024 7:03 pm lower back pain September 15, 2024 7:16 pm Lower back pain September 23, 2024 7:10p m Back Pain September 28, 2024 7:38p m Back pain NKI October 03, 2024 7:27 pm Chief Complaint Admit Date lower back pain July 10, 2024 8:2 1pm r side pain, vomiting July 11, 2024 8 :53pm Lower back pain July 13, 2024 7:1 3pm lower back pain August 13, 2024 8:43p m Back Pain - NKI August 16, 2024 7:38p m Lower back pain NKI August 27, 2024 7:52p m Back Pain August 31, 2024 8:16p m Back pain NKI September 12, 2024 7:03 pm lower back pain September 15, 2024 7:16 pm Lower back pain September 23, 2024 7:10p m Back Pain September 28, 2024 7:38p m Back pain NKI October 03, 2024 7:27 pm back pain October 06, 2024 7:14 pm Chief Complaint Admit Date lower back pain August 13, 2024 8:43p m Back Pain - NKI August 16, 2024 7:38p m Lower back pain NKI August 27, 2024 7:52p m Back Pain August 31, 2024 8:16p m Back pain NKI September 12, 2024 7:03 pm lower back pain September 15, 2024 7:16 pm Lower back pain September 23, 2024 7:10p m Back Pain September 28, 2024 7:38p m Back pain NKI October 03, 2024 7:27 pm back pain October 06, 2024 7:14 pm Lower back pain October 13, 2024 7:21 pm Chief Complaint Admit Date lower back pain August 13, 2024 8:43p m Back Pain - NKI August 16, 2024 7:38p m Lower back pain NKI August 27, 2024 7:52p m Back Pain August 31, 2024 8:16p m Back pain NKI September 12, 2024 7:03 pm lower back pain September 15, 2024 7:16 pm Lower back pain September 23, 2024 7:10p m Back Pain September 28, 2024 7:38p m Back pain NKI October 03, 2024 7:27 pm back pain October 06, 2024 7:14 pm Lower back pain October 13, 2024 7:21 pm lower back pain October 18, 2024 8:35 pm Chief Complaint Admit Date lower back pain August 13, 2024 8:43p m Back Pain - NKI August 16, 2024 7:38p m Lower back pain NKI August 27, 2024 7:52p m Back Pain August 31, 2024 8:16p m Back pain NKI September 12, 2024 7:03 pm lower back pain September 15, 2024 7:16 pm Lower back pain September 23, 2024 7:10p m Back Pain September 28, 2024 7:38p m Back pain NKI October 03, 2024 7:27 pm back pain October 06, 2024 7:14 pm Lower back pain October 13, 2024 7:21 pm lower back pain October 18, 2024 8:35 pm back pain October 21, 2024 4:22 pm Chief Complaint Admit Date lower back pain August 13, 2024 8:43p m Back Pain - NKI August 16, 2024 7:38p m Lower back pain NKI August 27, 2024 7:52p m Back Pain August 31, 2024 8:16p m Back pain NKI September 12, 2024 7:03 pm lower back pain September 15, 2024 7:16 pm Lower back pain September 23, 2024 7:10p m Back Pain September 28, 2024 7:38p m Back pain NKI October 03, 2024 7:27 pm back pain October 06, 2024 7:14 pm Lower back pain October 13, 2024 7:21 pm lower back pain October 18, 2024 8:35 pm back pain October 21, 2024 4:22 pm Lower back pain October 23, 2024 6:2 9pm Chief Complaint Admit Date lower back pain August 13, 2024 8:43p m Back Pain - NKI August 16, 2024 7:38p m Lower back pain NKI August 27, 2024 7:52p m Back Pain August 31, 2024 8:16p m Back pain NKI September 12, 2024 7:03 pm lower back pain September 15, 2024 7:16 pm Lower back pain September 23, 2024 7:10p m Back Pain September 28, 2024 7:38p m Back pain NKI October 03, 2024 7:27 pm back pain October 06, 2024 7:14 pm Lower back pain October 13, 2024 7:21 pm lower back pain October 18, 2024 8:35 pm back pain October 21, 2024 4:22 pm Lower back pain October 23, 2024 6:2 9pm Lower back pain October 29, 2024 7:4 0pm Chief Complaint Admit Date lower back pain August 13, 2024 8:43p m Back Pain - NKI August 16, 2024 7:38p m Lower back pain NKI August 27, 2024 7:52p m Back Pain August 31, 2024 8:16p m Back pain NKI September 12, 2024 7:03 pm lower back pain September 15, 2024 7:16 pm Lower back pain September 23, 2024 7:10p m Back Pain September 28, 2024 7:38p m Back pain NKI October 03, 2024 7:27 pm back pain October 06, 2024 7:14 pm Lower back pain October 13, 2024 7:21 pm lower back pain October 18, 2024 8:35 pm back pain October 21, 2024 4:22 pm Lower back pain October 23, 2024 6:2 9pm Lower back pain October 29, 2024 7:4 0pm Lower back pain November 01, 2024 1: 17pm Chief Complaint Admit Date lower back pain August 13, 2024 8:43p m Back Pain - NKI August 16, 2024 7:38p m Lower back pain NKI August 27, 2024 7:52p m Back Pain August 31, 2024 8:16p m Back pain NKI September 12, 2024 7:03 pm lower back pain September 15, 2024 7:16 pm Lower back pain September 23, 2024 7:10p m Back Pain September 28, 2024 7:38p m Back pain NKI October 03, 2024 7:27 pm back pain October 06, 2024 7:14 pm Lower back pain October 13, 2024 7:21 pm lower back pain October 18, 2024 8:35 pm back pain October 21, 2024 4:22 pm Lower back pain October 23, 2024 6:2 9pm Lower back pain October 29, 2024 7:4 0pm Lower back pain November 01, 2024 1: 17pm lower back pain November 08, 2024 6: 43pm Chief Complaint Admit Date Lower back pain NKI August 27, 2024 7:52p m Back Pain August 31, 2024 8:16p m Back pain NKI September 12, 2024 7:03 pm lower back pain September 15, 2024 7:16 pm Lower back pain September 23, 2024 7:10p m Back Pain September 28, 2024 7:38p m Back pain NKI October 03, 2024 7:27 pm back pain October 06, 2024 7:14 pm Lower back pain October 13, 2024 7:21 pm lower back pain October 18, 2024 8:35 pm back pain October 21, 2024 4:22 pm Lower back pain October 23, 2024 6:2 9pm Lower back pain October 29, 2024 7:4 0pm Lower back pain November 01, 2024 1: 17pm lower back pain November 08, 2024 6: 43pm Back pain November 20, 2024 6: 48pm Chief Complaint Admit Date Lower back pain September 23, 2024 7:10p m Back Pain September 28, 2024 7:38p m Back pain NKI October 03, 2024 7:27 pm back pain October 06, 2024 7:14 pm Lower back pain October 13, 2024 7:21 pm lower back pain October 18, 2024 8:35 pm back pain October 21, 2024 4:22 pm Lower back pain October 23, 2024 6:2 9pm Lower back pain October 29, 2024 7:4 0pm Lower back pain November 01, 2024 1: 17pm lower back pain November 08, 2024 6: 43pm Back pain November 20, 2024 6: 48pm Back Pain December 16, 2024 7:28pm Chief Complaint Admit Date back pain October 06, 2024 7:14 pm Lower back pain October 13, 2024 7:21 pm lower back pain October 18, 2024 8:35 pm back pain October 21, 2024 4:22 pm Lower back pain October 23, 2024 6:2 9pm Lower back pain October 29, 2024 7:4 0pm Lower back pain November 01, 2024 1: 17pm lower back pain November 08, 2024 6: 43pm Back pain November 20, 2024 6: 48pm Back Pain December 16, 2024 7:28pm lower back pain January 02, 2025 7 :16pm Advance Directives Date ActivatedDate IiknszstjdfSwbjresl75/14/2024 1:16 PMQuestionAnswerComments Plan of Care:* Code Status Discussion Not Completed Decision Maker:* Provider Rationale:* Patient condition does not warrant discussion Date ActivatedDate InactivatedComments08/21/2023 6:35 AM02/06/2024 1:16 PM QuestionAnswerCommentsPlan of Care:* Code Status Discussion Not Completed Decision Maker:* Provider Rationale:* Patient condition does not warrant discussion Advance Directive Response Recorded Date/ Time Advance Directives No January 11:56am Advance Directive Response Recorded Date/ Time Advance Directives No January 10:56am Advance Directive Response Recorded Date/ Time Advance Directives No April 3:47pm Advance Directive Response Recorded Date/ Time Advance Directives No April 4:47pm Date ActivatedDate InactivatedComments08/21/2023 6:35 AMDate ActivatedDate InactivatedComments08/21/2023 6:35 AMQuestionAnswerCommentsPlan of Care:* Code Status Discussion Not Completed Decision Maker:* Provider Rationale:* Patient condition does not warrant discussion Code StatusDate ActivatedDate InactivatedCommentsFull Code01/31/2014 5:10 AM 01/31/2014 7:41 PM Advance Directive Response Recorded Date/ Time Advance Directives No November 10:37pm Date ActivatedDate VorvtalzeufJlwsrdxf24/14/2024 1:16 PMDate ActivatedDate InactivatedComments08/21/2023 6:35 AM02/06/2024 1:16 PMQuestionAnswerCommentsPlan of Care:* Code Status Discussion Not Completed Decision Maker:* Provider Rationale:* Patient condition does not warrant discussion NameRelationshipHealthcare Agent RelationshipCommunicationThomas [place] Significant OtherHealth Care Agent* * * [email or web address] Devon BigeorgeelerSonFirst Alternate Health Care Agent* Ronald VillanuevamanSonSecond Alternate Health Care Agent* NameRelationshipHealthcare Agent RelationshipCommunicationThomas [place] Significant OtherHealth Care Agent* * * [email or web address] Devon BiechelerSonFirst Alternate Health Care Agent* Ronald EastmanSonSecond Alternate Health Care Agent* NameRelationshipHealthcare Agent RelationshipCommunicationThomas [place] Significant OtherHealth Care Agent* * * [email or web address] Devon BettencourtlucioAlaynaoctaviaFirst Alternate Health Care Agent* Ronald HaganSecond Alternate Health Care Agent* NameRelationshipHealthcare Agent RelationshipCommunicationThomas Marla Significant OtherHealth Care Agent* * * [email or web address] Devon MercedesonFirst Alternate Health Care Agent* Ronald VillanuevamanSonSecond Alternate Health Care Agent* NameRelationshipHealthcare Agent RelationshipCommunicationThomas Marla Significant OtherHealth Care Agent* * * [email or web address] [place] MercedesonFirst Alternate Health Care Agent* Ronald GutiérrezSonSecond Alternate Health Care Agent* NameRelationshipHealthcare Agent RelationshipCommunicationThomas [place] Significant OtherHealth Care Agent* * * [email or web address] Devon MercedesonFirst Alternate Health Care Agent* Ronald GutiérrezSonSecond Alternate Health Care Agent* NameRelationshipHealthcare Agent RelationshipCommunicationThomas Marla Significant OtherHealth Care Agent* * * [email or web address] Devon BigeorgeeleAlaynaonFirst Alternate Health Care Agent* Ronald VillanuevamanSonSecond Alternate Health Care Agent* NameRelationshipHealthcare Agent RelationshipCommunicationThomas Marla Significant OtherHealth Care Agent* * * [email or web address] Devon BiechelerSonFirst Alternate Health Care Agent* Ronald GutiérrezSonSecond Alternate Health Care Agent* NameRelationshipHealthcare Agent RelationshipCommunicationThomas Marla Significant OtherHealth Care Agent* * * [email or web address] Devon BiechelerSonFirst Alternate Health Care Agent* Ronald EastmanSonSecond Alternate Health Care Agent* NameRelationshipHealthcare Agent RelationshipCommunicationThomas [place] Significant OtherHealth Care Agent* * * [email or web address] Devon BiechelerSonFirst Alternate Health Care Agent* Ronald VillanuevamanSonSecond Alternate Health Care Agent* NameRelationshipHealthcare Agent RelationshipCommunicationThomas Marla Significant OtherHealth Care Agent* * * [email or web address] Devon BiechelerSonFirst Alternate Health Care Agent* Ronald GutiérrezSonSecond Alternate Health Care Agent* NameRelationshipHealthcare Agent RelationshipCommunicationThomas Marla Significant OtherHealth Care Agent* * * [email or web address] Devon BiechelerSonFirst Alternate Health Care Agent* Ronald EastmanSonSecond Alternate Health Care Agent* NameRelationshipHealthcare Agent RelationshipCommunicationThomas Marla Significant OtherHealth Care Agent* * * [email or web address] Devon ContrerasFirst Alternate Health Care Agent* Ronald Pedrocond Alternate Health Care Agent* NameRelationshipHealthcare Agent RelationshipCommunicationThomas [place] Significant OtherHealth Care Agent* * * [email or web address] NameRelationshipHealthcare Agent RelationshipCommunicationThomas Marla Significant OtherHealth Care Agent* * * [email or web address]@[employer] NameRelationshipHealthcare Agent RelationshipCommunicationThomas Marla Significant OtherHealth Care Agent* * * [email or web address]@[employer] NameRelationshipHealthcare Agent RelationshipCommunicationThomas [place] Significant OtherHealth Care Agent* * * [email or web address]@[employer] NameRelationshipHealthcare Agent RelationshipCommunicationThomas [place] Significant OtherHealth Care Agent* * * [email or web address]@[employer] NameRelationshipHealthcare Agent RelationshipCommunicationThomas Marla Significant OtherHealth Care Agent* * * @[employer] Date ActivatedDate MojjjolbriyEhwvfqwz66/9/2014 5:10 AM01/31/2014 7:41 PMName RelationshipHealthcare Agent RelationshipCommunicationThomas EastmanSignificant OtherHealth Care Agent* * * [email or web address]@[employer] Date ActivatedDate InactivatedComments10/08/2024 12:22 PMDate ActivatedDate XtiddxxtekrHqajjxdx99/9/2014 5:10 AM01/31/2014 7:41 PMDate ActivatedDate InactivatedComments10/08/2024 12:22 PM10/08/2024 3:36 PMDate ActivatedDate SkwxthvwycmVbqegplj28/9/2014 5:10 AM01/31/2014 7:41 PMNameRelationshipHealthcare Agent RelationshipCommunicationThomas EastmanSignificant OtherHealth Care Agent * * * [email or web address]@[employer] Date ActivatedDate InactivatedComments11/27/2024 8:07 AMDate ActivatedDate InactivatedComments10/08/2024 12:22 PM10/08/2024 3:36 PMDate ActivatedDate IwqqclmeetmBijuckqu14/9/2014 5:10 AM01/31/2014 7:41 PM Summary Purpose Family History Relationship Condition Age at Onset Recorded Date/T kelechi grandparent Unknown Myocardial infarctionUnknowngrandparentMalignant neoplasmUnknownDeceasedUnknown No Family History Records Found Additional Source Comments Source Comments (unrecognize d section and content) In the event this informatio n is protected by the Federal Confidentiality of Alcohol and Drug Abuse Patient Records regulations: The Federal rules restrict any use of the information to criminally investigate or prosecute any alcohol or drug abuse patient.[facility] HospitalIn the event this information is protected by the Federal Confidentiality of Alcohol and Drug Abuse Patient Records regulations: The Federal rules restrict any use of the information to criminally investigate or prosecute any alcohol or drug abuse patient.[facility] HospitalIn the event this information is protected by the Federal Confidentiality of Alcohol and Drug Abuse Patient Records regulations: The Federal rules restrict any use of the information to criminally investigate or prosecute any alcohol or drug abuse patient.[facility] HospitalIn the event this information is protected by the Federal Confidentiality of Alcohol and Drug Abuse Patient Records regulations: The Federal rules restrict any use of the information to criminally investigate or prosecute any alcohol or drug abuse patient.[facility] REASON FOR VISIT (unrecogniz ed section and content) ReasonCommentsPost-opSpecialtyDiagnoses / ProceduresReferred By ContactReferred To ContactNeurosurgery Diagnoses Dehiscence of wound of skin, subsequent encounter Postoperative pain Jarocho Delatorre, [address] [place] [address] Referral IDStatusReasonStart DateExpiration DateVisits RequestedVisits [id number] Specialty Services Required [id number] PainSpecialtyDiagnoses / Procedures Referred By ContactReferred To Contact Diagnoses Acute bilateral low back pain without sciatica Procedures [place] [address] Department [place] [address] [facility] [place] [address] [place] [address] Referral IDStatusReasonBroad Top DateExpiration DateVisits RequestedVisits [id number] / ProceduresReferred By ContactReferred To Contact Diagnoses Wound dehiscence Acute low back pain, unspecified back pain laterality, unspecified whether sciatica present back pain Procedures [place] [address] Department of Neurological Surgery [place] [id number] [facility] [address] [address] [place] [address] Referral IDStatus[facility] DateExpiration DateVisits RequestedVisits [id number] CarePatient transferring Care form [place], [place], last seen by PCP 3 months ago.Colonoscopy done 04/2022 and bone density done 10/2022 at [facility], mammogram scheduled for 01-17-23 and Pap done over 5 years.Weight LossPatient would like to discuss weight loss options.ReasonCommentsBack PainPatient presents with low back pain. Patient describes her pain as throbbing and constant.SpecialtyDiagnoses / Procedures Referred By ContactReferred To ContactRadiology Diagnoses Chronic hepatitis C without hepatic coma (CMS/HCC) Procedures US abdomen limited liver Antonio Husain PA-C [address] [facility] [place] [address] Referral IDStatusReasonBroad Top DateExpiration DateVisits RequestedVisits [id number] Review Perform Procedure [id number] CNew Patient VisitSpecialty Diagnoses / ProceduresReferred By ContactReferred To ContactNeurosurgery Diagnoses Chronic low back pain, unspecified back pain laterality, unspecified [place] [address] Department of Neurosurgery/[place] [address] [place] [address] Department of Neurological Surgery [place] [id number] Referral IDStatus[facility] DateExpiration DateVisits RequestedVisits [id number] Review Specialty Services Required [id number]-jvBb Wrist Fx; Xrays TodayReason CommentsBack PainDisc L4-K6KvynwbYulezveeAuqi PainPatient to ED reference back pain. She has history of chronic back pain with bulging discs at L4 and L5. She is schedule electric stimulator in June. She recently returned to work and is having issues with her back.SpecialtyDiagnoses / ProceduresReferred By Contact Referred To Contact Diagnoses Chronic back pain greater than 3 months duration Neuropathic pain Chronic back pain greater than 3 months duration [M54.9, G89.29] Neuropathic pain [M79.2] Procedures MS PRQ IMPLTJ NSTIM ELECTRODE ARRAY EPIDURAL MS ELEC GARO IMPLT NPGT SMPL SP/PN NPGT PRGRMG Percutaneous Thoracic Spinal Cord Stimulator [place] [address] [facility] Department of Neurological Surgery [place] [id number] [facility] [place] [address] [place] [address] Referral IDStatus[facility] DateExpiration DateVisits RequestedVisits [id number]-urVudhww cord stimulatorReasonComments Back PainPt had neuro stimulator placed in lower back approx 5 weeks ago. Pt states she had to have it removed 2 weeks ago due to infection. Pt states she started having low back pain yesterday. Pt unsure if related to that. Pt denies fevers or drainage from site.Wound CheckReasonCommentsHepatitis CLiver Follow-up ReasonCommentsFUVReasonCommentsBack PainI have chronic back pain, I can't get it to ease up todayReasonCommentsBack PainSpecialtyDiagnoses / ProceduresReferred By ContactReferred To Contact Diagnoses Left leg weakness Spinal stenosis of lumbar region, unspecified whether neurogenic claudication present Chronic midline low back pain, unspecified whether sciatica present Procedures Simon Medina MD [address] [place] [address] [facility] [address] [place] [address] Referral IDStatusReasonStart DateExpiration DateVisits RequestedVisits [id number]fz PainSpecialtyDiagnoses / ProceduresReferred By ContactReferred To Contact Diagnoses Chronic low back pain without sciatica, unspecified back pain laterality Procedures n/a Dinora Preston DO [address] [place] [address] Phone: tel: fax: [facility] [address] [place] [address] Phone: tel: Referral IDStatusReasonStart DateExpiration DateVisits RequestedVisits [id number] PainPt states she has had left leg weakness/numbness since last Saturday. Getting progressivley worse.Fell 2 times today due to leg keep giving out denies injury form falling.ReasonCommentsBack PainPt here for low back pain sees the surgeon tomorrow can't take the pain ReasonCommentsBack PainMy back is spasmingReasonCommentsFallPatient states she is scheduled to have back surgery in [place] in one week, states she fell yesterday twice due to her legs giving out from the pain, called her surgeon and states they told me tocome up here and get checked out to make sure I didn't mess anything up for surgery. Patient also states she is out of pain medicine. ReasonCommentsWound Vac Not WorkingReasonCommentsEstablish CarePt here to Establish ER follow upSpecialtyDiagnoses / ProceduresReferred By ContactReferred To ContactFamily Medicine / Primary Care Diagnoses Left leg weakness Chronic back pain greater than 3 months duration Shelton Beck DO [address] [place] [address] Phone: tel: fax: Referral IDStatusReasonStart DateExpiration DateVisits RequestedVisits [id number] Specialty Services Required [id number] PainRt elbow pain after changing trash bag today.ReasonCommentsFallPt states she stepped in a hole on her steps and fell down 3 steps around 1000 this morning. Pain to lumbar area, hx bulging discs l4-l5. Took 800 mg of ibuprofen without relief. Denies hitting head or LOC.SpecialtyDiagnoses / ProceduresReferred By ContactReferred To Contact Diagnoses Chronic back pain greater than 3 months duration Neuropathic pain Chronic back pain greater than 3 months duration [M54.9, G89.29] Neuropathic pain [M79.2] Procedures MS PRQ IMPLTJ NSTIM ELECTRODE ARRAY EPIDURAL MS INSJ/RPLCMT SPINAL NPG/RCVR POCKET CRTJ&CONNJ MS ELEC GARO IMPLT NPGT SMPL SP/PN NPGT PRGRMG Percutaneous Thoracic Spinal Cord Stimulator Leads and Generator Placement - FriendsClear Percutaneous Thoracic Spinal Cord Stimulator Leads and [place] [address] [facility] Department [place] [address] [facility] [address] [address] [address] [place] [address] Referral IDStatus[facility] DateExpiration DateVisits RequestedVisits [id number]r states 8/10 pain in her left side and backReasonCommentsPost-op ProblemSpecialtyDiagnoses / ProceduresReferred By ContactReferred To ContactRadiology Diagnoses Chronic back pain greater than 3 months duration Neuropathic pain Procedures MR thoracic spine wo IV contrast Chirag Reynoso, HOT BLASTER-WAIVER ANALYST [address] [facility] [place] [address] Referral IDStatusReasonStart DateExpiration DateVisits RequestedVisits [id number] Perform Procedure [id number]-hd ProblemBack surgery was in September - incision opened up and was seen at neuro 3 days ago for opening incision. 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 Pt denies LOC or neck pain. Pt has back surgery on 02/06/24. Pt took 5 mg percocet at 1500 and states it has nothelped. Pt describes pain as burning, throbbing.ReasonCommentsFollow-upReasonCommentsWound CheckReasonCommentsBack PainReasonCommentsFallFemale came into ED via POV. Female said she fell this morning approximately 1000hrs, she said she passed out and woke up on the floor. Denies dizziness or lightheadedness at this time. Female is nowhaving right shoulder and elbow pain, 12/02. Female also said she has a vacuum wound pump that fell off as well when she fell.ReasonCommentsWound Vac ReplacementReason CommentsWound CheckReasonCommentsPOVReasonCommentsFlank PainBilateral, tender ReasonCommentsItchingI have itching, burning, throbbing at the wound vac site, like maybe I'm allergic to the tape or something, I had the dressing changed at home today and she said it looked like I had tiny blistersReasonCommentsFallIn through triage pt has chronic back. But pt states she trip over a dog and now pains worst then normalBack PainSpecialtyDiagnoses / ProceduresReferred By ContactReferred To ContactRadiology Diagnoses Chronic hepatitis C without hepatic coma (Multi) Procedures [place] [address] Department [place] [address] Referral IDStatusReasonStart DateExpiration DateVisits RequestedVisits [id number] Perform Procedure [id number] PainReasonCommentsBack PainRecent surgery of L4/L5 in 02/15, Pain910ReasonCommentsBack Painleg numbnessReason CommentsMed RefillReasonCommentsAnxietyReasonCommentsNew PatientReasonComments Back PainSpecialtyDiagnoses / ProceduresReferred By ContactReferred To Contact Diagnoses Chronic low back pain with left-sided sciatica, unspecified back pain laterality Procedures [place] [address] [facility] Department [place] [address] Phone: tel: fax: [facility] [address] [place] [address] Phone: tel: fax: Referral IDStatusReasonStart DateExpiration DateVisits RequestedVisits [id number] / ProceduresReferred By ContactReferred To Contact Diagnoses Chronic midline low back [place] [address] [place] [address] Phone: tel: fax: [facility] [address] [place] [address] Phone: tel: fax: Referral IDStatusReasonStart DateExpiration DateVisits RequestedVisits [id number] PainLower back pain.ReasonCommentsFallBack PainSpecialtyDiagnoses / ProceduresReferred By ContactReferred To Contact Diagnoses Back pain, unspecified back location, unspecified back pain laterality, unspecified chronicity Acute on chronic back pain Procedures Elif Hassan, HOT BLASTER-WAIVER ANALYST [address] [facility] [place] [address] Phone: tel: fax: [facility] [place] [address] [address] [place] [address] Phone: tel: Referral IDStatusReasonStart DateExpiration DateVisits RequestedVisits [id number] PainPT to ED c/o back pain. Pt states I came to have xrays done but they had no orders for the xrays and now my back is hurting too much to drive home. ReasonCommentsBack PainStates she has an order for xray from Dr. Poe but coming in to get something for the pain. Took 800mg Motrin at 8am.ReasonCommentsNumbnessReasonCommentsBack PainPatient states I had an appointment today for my back pain and the car ride here just made my back hurt to back to ride back home. ReasonCommentsBack PainRadiating down left legReasonCommentsBack PainLower; radiating into left leg.ReasonCommentsBack PainUrinary incontinencceReasonCommentsBack PainPatient has chronic lower back pain from disc problems. States she turned the wrong way and her lower back seized up.ReasonCommentsLeg PainBack PainHerniated disk pain [id number] CommentsBack PainPt c/o severe lower back pain , numbness and limited movement in her LLE that started today after vomitingReasonCommentsBack PainPain in lower back x1 dayReasonCommentsBack PainchronicReasonCommentsBack PainPt states that she have a chronic issue with her back. Next year will received a pain pump. ReasonCommentsBack PainLower left sided back painReasonCommentsBack PainLower ReasonCommentsBack PainFlare up of chronic lower back pain after spending the day at the fair todayReasonCommentsBack PainPatient to ER with left lower back pain after tripping over grandson and falling aprox 1 hr agoReasonCommentsBack PainChronic back painReasonCommentsBack PainLower left back pain since yesterday, pt has chronic back problems but states that pain is worse than usual. Care Teams (unrecognized sec tion and content) Personnel Name: FLOR JONES Address: [address] [place], [place] [address] Telecom: Team Status: Inactive Member Role Status Dates Services Family Health Primary Care Provider Active Mamadou MorseActive Team Status: Inactive Member Role Status Dates Services Family Health Primary Care Provider Active ELIZABETH Diaz ProviderActive Team Status: Inactive Member Role Status Dates Services Family Health Primary Care Provider Active Lynn Baker ProviderActive Team Status: Inactive Member Role Status Dates Services Family Health Primary Care Provider Active Alex Rodney ProviderActive Team Status: Inactive Member Role Status Dates Services Family Health Primary Care Provider Active Mamadou Noel ProviderActive Team Status: Inactive Member Role Status Dates Services Family Health Primary Care Provider Active Mamadou Peña ProviderActive Team Status: Active Member Role Status Dates Services Family Health Primary Care Provider Active Team Status: Inactive Member Role Status [facility] Family Health Primary Care Provider Active Lynn Billings ProviderActive Team Status: Inactive Member Role Status [facility] Family Health Primary Care Provider Active Mamadou Kline ProviderActive Team Status: Inactive Member Role Status [facility] Family Health Primary Care Provider Active Mamadou Benjamin ProviderActive Team Status: Inactive Member Role Status [facility] Family Health Primary Care Provider Active Jose Mcgill ProviderActive Team Status: Inactive Member Role Status [facility] Family Health Primary Care Provider Active Lidya Pineda ProviderActive Team Status: Inactive Member Role Status Dates Services Family Health Primary Care Provider Active Rola Loving ProviderActive Team Status: Inactive Member Role Status [facility] Family Health Primary Care Provider Active Jose Chambers ProviderActive Team Status: Inactive Member Role Status Dates Services Family Health Primary Care Provider Active Christina Suarez ProviderActive Team Status: Inactive Member Role Status Dates Services Family Health Primary Care Provider Active Shannon Causey ProviderActive Team Status: Inactive Member Role Status Dates Services Family Health Primary Care Provider Active Rola Peterson ProviderActive Team Status: Active Member Role Status Dates Services Family Health Primary Care Provider Active Rola Tamez ProviderActive Team Status: Inactive Member Role Status Dates Services Family Health Primary Care Provider Active Rola Tamez ProviderActive Team Status: Inactive Member Role Status Dates Services Family Health Primary Care Provider Active Christina Vu ProviderActive Team Status: Inactive Member Role Status Dates Services Family Health Primary Care Provider Active Lynn Lennon ProviderActive Team Status: Inactive Member Role Status Dates Services Family Health Primary Care Provider Active Jose Granados Jr ProviderActive Team Status: Active Member Role Status Dates PHYSICIAN NO FAMILY Primary Care Provider Active Team Status: Inactive Member Role Status Dates PHYSICIAN NO FAMILY Primary Care Provider Active Christina Suarez ProviderActiveTeam MemberRelationshipSpecialty Start DateEnd [place] [address] [phone] (Work) PCP - General12/04/22 Team Status: Inactive Member Role Status Dates PHYSICIAN NO FAMILY Primary Care Provider Active Mary Beth Sloan , INTENSIVE CARE NURSE-BCEmergenleonardo ProviderActive Team Status: Inactive Member Role Status Dates PHYSICIAN NO FAMILY Primary Care Provider Active Rola Tamez ProviderActive Team Status: Active Member Role Status Dates Felice Veliz HOT BLASTER MEDICAL BILLER-C Primary Care Provider Act alexandre Team Status: Inactive Member Role Status Dates Felice Veliz APRN MEDICAL BILLER-C Primary Care Provider Act [place] Rose Marie Shepherd MEDICAL BILLER-CAttenbrant ProviderActive Team Status: Inactive Member Role Status Dates Felice Veliz APRN MEDICAL BILLER-C Primary Care Provider Act a[place] Mary Beth Sloan , INTENSIVE CARE NURSE-BCEmergenleonardo ProviderActive Team Status: Inactive Member Role Status Dates Felice Veliz HOT BLASTER MEDICAL BILLER-C Primary Care Provider Act a[place] Christina Suarez ProviderActive Team Status: Active Member Role Status Dates NON STAFF Primary Care Provider Active Team Status: Inactive Member Role Status Dates NON STAFF Primary Care Provider Active Mamadou Peña ProviderActive Team Status: Inactive Member Role Status Dates NON STAFF Primary Care Provider Active Christina Carrion ProviderActiveTeam MemberRelationshipSpecialty Start DateEnd Date Antonio Husain PA-C [address] [facility] [place] [address] PCP - GeneralInternal Spfaasau97/17/23Team MemberRelationshipSpecialtyStart Date End Date Antonio Husain PA-C [address] [facility] [place] [address] PCP - GeneralInternal Egxeamdq35/17/23 Team Status: Inactive Member Role Status Dates PHYSICIAN NO FAMILY Primary Care Provider Active Christina Carrion ProviderActiveTeam MemberRelationshipSpecialty Start DateEnd Date Antonio Husain PA-C [address] [facility] [place] [address] PCP - GeneralInternal Mlharifx19/17/23Team MemberRelationshipSpecialtyStart Date End Date Antonio Husain PA-C [address] [facility] [place] [address] PCP - GeneralInternal Hkilfkqm69/17/23Team MemberRelationshipSpecialtyStart Date End Date Antonio Husain PA-C [address] [facility] [place] [address] PCP - GeneralInternal Edthglea71/17/23 Team Status: Inactive Member Role Status Dates NON STAFF Primary Care Provider Active Start: January 12, 2023 End: January 12Christina Boss ProviderActiveStart: January 12, 2023 End: January 12, 2023 Team Status: Inactive Member Role Status Dates PHYSICIAN NO FAMILY Primary Care Provider Active Start: January 23, 2023 End: January 23, 2023Christina Suarez ProviderActiveStart: January 23, 2023 End: January 23, 2023 Team Status: Inactive Member Role Status Dates PHYSICIAN NO FAMILY Primary Care Provider Active Start: January 27, 2023 End: January 27Christina Boss ProviderActiveStart: January 27, 2023 End: January 27, 2023 Team Status: Inactive Member Role Status Dates PHYSICIAN NO FAMILY Primary Care Provider Active Start: February 02, 2023 End: February 02, 2023Christina Suarez ProviderActiveStart: February 02, 2023 End: February 02, 2023 Team Status: Inactive Member Role Status Dates PHYSICIAN NO FAMILY Primary Care Provider Active Start: February 04, 2023 End: February 04Christina Boss ProviderActiveStart: February 04, 2023 End: February 04, 2023 Team Status: Inactive Member Role Status Dates PHYSICIAN NO FAMILY Primary Care Provider Active Start: February 08, 2023 End: February 08sly Sloan INTENSIVE CARE NURSE-BCEmergenleonardo ProviderActive Start: February 08, 2023 End: February 08, 2023 Team Status: Inactive Member Role Status Dates PHYSICIAN NO FAMILY Primary Care Provider Active Start: February 21, 2023 End: February 21, 2023Christina Suarez ProviderActiveStart: February 21, 2023 End: February 21, 2023 Team Status: Inactive Member Role Status Dates PHYSICIAN NO FAMILY Primary Care Provider Active Start: March 09, 2023 End: March 09sly Sloan , INTENSIVE CARE NURSE-BCEmergency ProviderActive Start: March 09, 2023 End: March 09, 2023 Team Status: Inactive Member Role Status Dates PHYSICIAN NO FAMILY Primary Care Provider Active Start: 2023 End: March 24, 2023Christina Suarez ProviderActiveStart: 2023 End: 2023 Team Status: Inactive Member Role Status Dates oJshua Ferrell APRN Emergency Provider Active Start: March 29, 2023 End: March 29, 2023Servicmyrna Denver SpringsPrimary Care ProviderActiveStart: March 29, 2023 End: March 29, 2023 Team Status: Inactive Member Role Status Dates Services Family Health Primary Care Provider Active Start: April 12, 2023 End: April 12, 2023Christina Suarez ProviderActiveStart: April 12, 2023 End: April 12, 2023Team MemberRelationshipSpecialtyStart DateEnd Date [place] [address] [phone] (Work) PCP - General12/04/22 Team Status: Inactive Member Role Status Dates Services Family Health Primary Care Provider Active Start: May 05, 2023 End: May 05Christina Boss ProviderActiveStart: May 05, 2023 End: May 05, 2023 Team Status: Inactive Member Role Status Dates Services Family Health Primary Care Provider Active Start: May 15, 2023 End: May 15, 2023Joy Barfield ProviderActiveStart: May 15, 2023 End: May 15, 2023 Team Status: Inactive Member Role Status Dates Services Family Health Primary Care Provider Active Start: May 19, 2023 End: May 19Christina Sin ProviderActiveStart: May 19, 2023 End: May 19, 2023Team MemberRelationshipSpecialtyStart DateEnd Date Antonio Husain PA-C [address] [facility] [place] [address] PCP - GeneralInternal Sdusagtr67/17/23Team MemberRelationshipSpecialtyStart Date End Date [place] [address] [phone] (Work) PCP - General12/04/22Team MemberRelationshipSpecialtyStart DateEnd Date Slime Sherwood DO [address] [facility] [place] [address] PCP - GeneralInternal Medicine06/15/23 Team Status: Inactive Member Role Status Dates Services Family Health Primary Care Provider Active Start: May 25, 2023 End: May 25, 2023Christina Suarez ProviderActiveStart: May 25, 2023 End: May 25, 2023 Team Status: Inactive Member Role Status Dates Services Family Health Primary Care Provider Active Start: June 01, 2023 End: May 31Selma Barry ProviderActiveStart: June 01, 2023 End: June 01, 2023 Team Status: Inactive Member Role Status Dates Services Family Health Primary Care Provider Active Start: June 26, 2023 End: June 25Mamadou Ponce ProviderActiveStart: June 26, 2023 End: June 26, 2023 Team Status: Inactive Member Role Status Dates Services Family Health Primary Care Provider Active Start: July 04, 2023 End: July 04, 2023Lidya Pineda ProviderActiveStart: July 04, 2023 End: July 04, 2023Team MemberRelationshipSpecialtyStart DateEnd Date Slime Sherwood DO [address] [facility] [place] [address] PCP - GeneralInternal Medicine06/15/23Team MemberRelationshipSpecialtyStart Date End Date [place] [address] [phone] (Work) PCP - General12/04/22Team MemberRelationshipSpecialtyStart DateEnd Date Generic Provider, No Assigned PcpMD NONE [facility] [place] [place] [address] PCP - GeneralGeneral Practice08/02/23Team MemberRelationshipSpecialtyStart Date End Date Generic Provider, [place] [address] PCP - GeneralGeneral Practice08/02/23 Team Status: Inactive Member Role Status Dates Services Family Health Primary Care Provider Active Start: September 08, 2023 End: September 07Christina Barr ProviderActiveStart: September 08, 2023 End: September 08, 2023 Team Status: Inactive Member Role Status Dates Services Family Health Primary Care Provider Active Start: October 05, 2023 End: October 04Jose Kelsey ProviderActiveStart: October 05, 2023 End: October 05, 2023 Team Status: Inactive Member Role Status Dates Services Family Health Primary Care Provider Active Start: October 19, 2023 End: October 19, 2023Jose White ProviderActiveStart: October 19, 2023 End: October 19, 2023 Team Status: Inactive Member Role Status Dates Services Family Health Primary Care Provider Active Start: November 10, 2023 End: November 10, 2023Mamadou Kline ProviderActiveStart: November 10, 2023 End: November 10, 2023 Team Status: Inactive Member Role Status Dates Services Family Health Primary Care Provider Active Start: November 25, 2023 End: November 24Mamadou Javier ProviderActiveStart: November 25, 2023 End: November 25, 2023 Team Status: Active Member Role Status Dates No PCP Primary Care Provider Active Team Status: Inactive Member Role Status Dates No PCP Primary Care Provider Active Start: November 26, 2023 End: November 26Jose Troncoso ProviderActiveStart: November 26, 2023 End: November 27, 2023 Team Status: Inactive Member Role Status Dates Services Family Health Primary Care Provider Active Start: December 01, 2023 End: December 01Mamadou Ponce ProviderActiveStart: December 01, 2023 End: December 02, 2023Dagoberto Duran DO RESActiveStart: December 01, 2023 End: December 02, 2023Team MemberRelationshipSpecialtyStart DateEnd [place] [address] [phone] (Work) PCP - General12/04/22 Team Status: Inactive Member Role Status Dates Services Family Health Primary Care Provider Active Start: December 12, 2023 End: December 11Christina Barr ProviderActiveStart: December 12, 2023 End: December 12, 2023Team MemberRelationshipSpecialtyStart DateEnd Date Generic Provider, No Ass[place] [address] PCP - GeneralGeneral Practice12/13/23 Team Status: Inactive Member Role Status Dates PHYSICIAN NO FAMILY Primary Care Provider Active Start: December 26, 2023 End: December 26, 2023Christina Suarez ProviderActiveStart: December 26, 2023 End: December 26, 2023Team MemberRelationshipSpecialtyStart DateEnd Date Generic Provider, No [place] [address] PCP - GeneralGeneral Practice12/13/23Team MemberRelationshipSpecialtyStart Date End Date Generic Provider, No [place] [address] PCP - GeneralGeneral Practice12/13/23Team MemberRelationshipSpecialtyStart Date End Date Marlee Fitzpatrick MD [address] [facility] [address] [place] [address] PCP - GeneralInternal Oqznvmbn53/9/24 Tracee Maurice, [facility] Social WorkerSocial Mcprkevw09/9/2410Team MemberRelationshipSpecialtyStart DateEnd Date Marlee Fitzpatrick MD [address] [facility] [address] [place] [address] PCP - GeneralInternal Ienqdvgr54/9/24 Natalia You RN Care ManagerCase Ikwxkgisex37/14/2410Team MemberRelationshipSpecialtyStart DateEnd Date Marlee Fitzpatrick MD [address] [facility] [address] [place] [address] PCP - GeneralInternal Zjraqlss83/9/24 Natalia You RN Care ManagerCase Xhbbnbaroe10/17/24Team MemberRelationshipSpecialtyStart DateEnd Date Marlee Fitzpatrick MD [address] [facility] [address] [place] [address] PCP - GeneralInternal Kooqitsd56/9/24 Natalia You RN Care ManagerCase Xythjdbzga75/17/24 Team Status: Active Member Role Status Dates PHYSICIAN NO FAMILY Primary Care Provider Active Start: December 23, 2023 Joy Menard ProviderActiveStart: December 23, 2023 Team Status: Inactive Member Role Status Dates PHYSICIAN NO FAMILY Primary Care Provider Active Start: January 16, 2024 End: January 15Christina Barr ProviderActiveStart: January 16, 2024 End: January 16, 2024Team MemberRelationshipSpecialtyStart DateEnd Date Marlee Fitzpatrick MD [address] [facility] [address] [place] [address] PCP - GeneralInternal Khnlfqxu20/9/24 Natalia You, RN Care ManagerCase Eprhknzedn74/17/24Team MemberRelationshipSpecialtyStart DateEnd Date Marlee Fitzpatrick MD [address] [facility] [address] [place] [address] PCP - GeneralInternal Sijcdpdq46/9/24 Natalia You, RN Care ManagerCase Lysniviwmg55/17/24Team MemberRelationshipSpecialtyStart DateEnd Date Marlee Fitzpatrick MD [address] [facility] [address] [place] [address] PCP - GeneralInternal Jdvuensa23/9/24 Natalia You RN Care ManagerCase Lttbnsxwad74/17/24 Team Status: Inactive Member Role Status Dates PHYSICIAN NO FAMILY Primary Care Provider Active Start: January 26, 2024 End: January 26, 2024YULIET Pineda-BCEmerreji ProviderActiveStart: January 26, 2024 End: January 26, 2024Team MemberRelationshipSpecialtyStart DateEnd Date Marlee Fitzpatrick MD [address] [facility] [address] [place] [address] PCP - GeneralInternal Cdmqnwic19/9/24 Natalia You, DARSHAN Care ManagerCase Huzcsxujqn85/17/24Team MemberRelationshipSpecialtyStart DateEnd Date Marlee Fitzpatrick MD [address] [facility] [address] [place] [address] PCP - GeneralInternal Sllrqzis00/9/24 Natalia You RN Care ManagerCase Lewnisvogg99/17/2411Team MemberRelationshipSpecialtyStart DateEnd Date Marlee Fitzpatrick MD [address] [facility] [address] [place] [address] PCP - GeneralInternal Krocfqhm68/9/24Team MemberRelationshipSpecialtyStart Date End Date Marlee Fitzpatrick MD [address] [facility] [address] [place] [address] PCP - GeneralInternal Nxyauixk89/9/24Team MemberRelationshipSpecialtyStart Date End Date Marlee Fitzpatrick MD [address] [facility] [address] [place] [address] PCP - GeneralInternal Wfkcanip96/9/24Team MemberRelationshipSpecialtyStart Date End Date Marlee Fitzpatrick MD [address] [facility] [address] [place] [address] PCP - GeneralInternal Bmtscenm84/9/24 Team Status: Inactive Member Role Status Dates PHYSICIAN NO FAMILY Primary Care Provider Active Start: February 05, 2024 End: February 04JOON Garcia-CEmergency ProviderActiveStart: February 05, 2024 End: February 05, 2024Team MemberRelationshipSpecialtyStart DateEnd Date Marlee Fitzpatrick MD [address] [facility] [address] [place] [address] PCP - GeneralInternal Qyxcmlrc48/9/24Team MemberRelationshipSpecialtyStart Date End Date Marlee Fitzpatrick MD [address] [facility] [address] [place] [address] PCP - GeneralInternal Otnxurhv33/9/24Team MemberRelationshipSpecialtyStart Date End Date Generic Provider, No [place] [address] PCP - GeneralGeneral Practice08/02/23Team MemberRelationshipSpecialtyStart Date End Date Generic Provider, No [place] [address] PCP - GeneralGeneral Practice08/02/23Team MemberRelationshipSpecialtyStart Date End Date Generic Provider, No [place] [address] PCP - GeneralGeneral Practice08/02/23Team MemberRelationshipSpecialtyStart Date End Date Marlee Fitzpatrick MD [address] [facility] [address] [place] [address] PCP - GeneralInternal Otqobuuz02/9/24Team MemberRelationshipSpecialtyStart Date End Date Generic Provider, No [place] [address] PCP - GeneralGeneral Practice08/02/23Team MemberRelationshipSpecialtyStart Date End Date Generic Provider, No [place] [address] PCP - GeneralGeneral Practice08/02/23Team MemberRelationshipSpecialtyStart Date End Date Generic Provider, No [place] [address] PCP - GeneralGeneral Practice08/02/23Team MemberRelationshipSpecialtyStart Date End Date Generic Provider, No Assigned PcpMD NONE [facility] [place] [address] PCP - GeneralGeneral Practice08/02/23Team MemberRelationshipSpecialtyStart Date End Date Generic Provider, No Assigned P[place], [place] [address] PCP - GeneralGeneral Practice08/02/23Team MemberRelationshipSpecialtyStart Date End Date Generic Provider, No Assigned P[place], [place] [address] PCP - GeneralGeneral Practice08/02/23Team MemberRelationshipSpecialtyStart Date End Date Generic Provider, No Assigned Pcp, [place] [address] PCP - GeneralGeneral Practice08/02/23Team MemberRelationshipSpecialtyStart Date End Date Generic Provider, No Assigned PcpMD NONE [facility] [place] [address] PCP - GeneralGeneral Practice08/02/23Team MemberRelationshipSpecialtyStart Date End Date Marlee Fitzpatrick MD [address] [facility] [address] [place] [address] PCP - GeneralInternal Jysnhqxk35/9/24Team MemberRelationshipSpecialtyStart Date End Date Generic Provider, [place] [address] PCP - GeneralGeneral Practice08/02/23Team MemberRelationshipSpecialtyStart Date End Date Generic Provider, No Assigned PcpMD NONE [facility] [place] [address] PCP - GeneralGeneral Practice08/02/23Team MemberRelationshipSpecialtyStart Date End Date Generic Provider, No Assigned PcpMD NONE [facility] [place] [address] PCP - GeneralGeneral Practice08/02/23Team MemberRelationshipSpecialtyStart Date End Date Felice Veliz APRN-WAIVER ANALYST [address] [place] [address] PCP - General12/07/23Team MemberRelationshipSpecialtyStart DateEnd Date Felice Veliz, HOT BLASTER-WAIVER ANALYST [address] [place] [address] PCP - General12/07/23Team MemberRelationshipSpecialtyStart DateEnd Date Felice Veliz, HOT BLASTER-WAIVER ANALYST [address] [place] [address] PCP - General12/07/23Team MemberRelationshipSpecialtyStart DateEnd Date Marlee Fitzpatrick MD [address] [facility] [address] [place] [address] PCP - GeneralInternal Jrzaajma74/9/24am MemberRelationshipSpecialtyStart Date End Date Felice Veliz, HOT BLASTER-WAIVER ANALYST [address] [place] [address] PCP - General12/07/23Team MemberRelationshipSpecialtyStart DateEnd Date Felice Veliz, HOT BLASTER-WAIVER ANALYST [address] [place] [address] PCP - General12/07/23Team MemberRelationshipSpecialtyStart DateEnd Date Generic Provider, No Assigned PcpMD NONE [facility] [place] [place] [address] PCP - GeneralGeneral Practice12/13/23Team MemberRelationshipSpecialtyStart Date End Date Generic Provider, No [place] [address] PCP - GeneralGeneral Practice12/13/23Team MemberRelationshipSpecialtyStart Date End Date Generic Provider, No Assigned PcpMD NONE [facility] [place] [address] PCP - GeneralGeneral Practice12/13/23Team MemberRelationshipSpecialtyStart Date End Date Generic Provider, No [place] [address] PCP - GeneralGeneral Practice12/13/23Team MemberRelationshipSpecialtyStart Date End Date Marlee Fitzpatrick MD [address] [place] [address] PCP - GeneralInternal Unzhpybe60/9/24Team MemberRelationshipSpecialtyStart Date End Date Marlee Fitzpatrick MD [address] [facility] [address] [place] [address] PCP - GeneralInternal Dqxixbgr15/9/24Team MemberRelationshipSpecialtyStart Date End Date Marlee Fitzpatrick MD [address] [facility] [address] [place] [address] PCP - GeneralInternal Rarrgmyz22/9/24Team MemberRelationshipSpecialtyStart Date End Date Marlee Fitzpatrick MD [address] [facility] [address] [place] [address] PCP - GeneralInternal Tbxaffea52/9/24 Team Status: Inactive Member Role Status Dates PHYSICIAN NO FAMILY Primary Care Provider Active Start: April 21, 2024 End: April 21Christina Barr ProviderActiveStart: April 21, 2024 End: April 21, 2024Team MemberRelationshipSpecialtyStart DateEnd Date Marlee Fitzpatrick MD [address] [facility] [address] [place] [address] PCP - GeneralInternal Hsqncfni25/9/24 Team Status: Inactive Member Role Status Dates PHYSICIAN NO FAMILY Primary Care Provider Active Start: April 24, 2024 End: April 24JOON Garcia-Rosmery ProviderActiveStart: April 24, 2024 End: April 24, 2024Team MemberRelationshipSpecialtyStart DateEnd Date Marlee Fitzpatrick MD [address] [facility] [address] [place] [address] PCP - GeneralInternal Pfclmymh17/9/24Team MemberRelationshipSpecialtyStart Date End Date Marlee Fitzpatrick MD [address] [facility] [address] [place] [address] PCP - GeneralInternal Yvfiirpl70/9/24 Kati Schwartz CMA Care ManagerCase Management05/04/24Team MemberRelationshipSpecialtyStart DateEnd Date Marlee Fitzpatrick MD [address] [facility] [address] [place] [address] PCP - GeneralInternal Qnybcirl79/9/24 Kati Schwartz CMA Care ManagerCase Management05/04/24Team MemberRelationshipSpecialtyStart DateEnd Date Generic Provider, No [place] [address] PCP - GeneralGeneral Practice05/15/24 Kati Schwartz CMA Care ManagerCase Management05/04/24 Team Status: Inactive Member Role Status Dates PHYSICIAN NO FAMILY Primary Care Provider Active Start: May 25, 2024 End: May 25Christina Barr ProviderActiveStart: May 25, 2024 End: May 25, 2024Team MemberRelationshipSpecialtyStart DateEnd Date Marlee Fitzpatrick MD [address] [facility] [address] [place], [place] [address] PCP - GeneralInternal Medicine05/26/24Team MemberRelationshipSpecialtyStart Date End Date Marlee Fitzpatrick MD [address] [address] PCP - GeneralInternal Medicine05/26/24 Team Status: Inactive Member Role Status Dates PHYSICIAN NO FAMILY Primary Care Provider Active Start: May 28, 2024 End: May 28, 2024Christina Suarez ProviderActiveStart: May 28, 2024 End: May 28, 2024 Team Status: Inactive Member Role Status Dates PHYSICIAN NO FAMILY Primary Care Provider Active Start: May 30, 2024 End: May 30Christina Barr ProviderActiveStart: May 30, 2024 End: May 30, 2024Team MemberRelationshipSpecialtyStart DateEnd [place] [address] [phone] (Work) PCP - General12/04/22Team MemberRelationshipSpecialtyStart DateEnd Date Marlee Fitzpatrick MD [address] [address] PCP - GeneralInternal Medicine05/26/24 Team Status: Active Member Role Status Dates Kristan Lau APRN MEDICAL BILLER-C Primary Care Provi evelyn Active Team Status: Inactive Member Role Status Dates DON Funes RN MEDICAL BILLER-C Primary Care Provider Active Start: June 10, 2024 End: June 10JOON Garcia-Rosmery ProviderActiveStart: June 10, 2024 End: June 10, 2024 Team Status: Inactive Member Role Status Dates DON Funes RN MEDICAL BILLER-C Primary Care Provider Active Start: June 17, 2024 End: June 17Christina Barr ProviderActiveStart: June 17, 2024 End: June 17, 2024Team MemberRelationshipSpecialtyStart DateEnd Date Kristan Lau APRN-WAIVER ANALYST [address] [place] [address] [facility] - [facility]06/23/24 Elva Lowe MA Care ManagerCase [facility]06/15/24 Team Status: Inactive Member Role Status Dates DON Funes RN MEDICAL BILLER-C Primary Care Provider Active Start: June 26, 2024 End: June 26JOON Garcia-CEmdimas ProviderActiveStart: June 26, 2024 End: June 26, 2024Team MemberRelationshipSpecialtyStart DateEnd Date Generic Provider, No [place] [address] PCP - GeneralGeneral Practice06/27/24 Elva Lowe MA Care ManagerCase Management06/15/24 Team Status: Inactive Member Role Status Dates DON Funes RN MEDICAL BILLER-C Primary Care Provider Active Start: June 29, 2024 End: June 29ourda Carmichael , APRNEmergency ProviderActiveStart: June 29, 2024 End: June 29, 2024 Team Status: Inactive Member Role Status Dates DON Funes RN MEDICAL BILLER-C Primary Care Provider Active Start: July 04, 2024 End: July 04ourtvirgil Narvaeze , APRNEmergency ProviderActiveStart: July 04, 2024 End: July 04, 2024Team MemberRelationshipSpecialtyStart DateEnd Date Generic Provider, No Ass[place] [address] PCP - GeneralGeneral Practice06/27/24 Elva Lowe MA Care ManagerCase Management06/15/24 Team Status: Inactive Member Role Status Dates DON Funes RN MEDICAL BILLER-C Primary Care Provider Active Start: July 07, 2024 End: July 07ourda Carmichael , APRNEmergency ProviderActiveStart: July 07, 2024 End: July 07, 2024 Team Status: Inactive Member Role Status Dates DON Funes RN MEDICAL BILLER-C Primary Care Provider Active Start: July 10, 2024 End: July 10Lynn Garcia ProviderActiveStart: July 10, 2024 End: July 10, 2024 Team Status: Inactive Member Role Status Dates DON Funes RN MEDICAL BILLER-C Primary Care Provider Active Start: July 11, 2024 End: July 12, 2024Jose White ProviderActiveStart: July 11, 2024 End: July 12, 2024 Team Status: Inactive Member Role Status Dates DON Funes RN MEDICAL BILLER-C Primary Care Provider Active Start: July 13, 2024 End: July 13Christina Barr ProviderActiveStart: July 13, 2024 End: July 13, 2024Team MemberRelationshipSpecialtyStart DateEnd Date Kirstan Kent APRN - WAIVER ANALYST [address] [facility] [address] [facility] [place] [address] PCP - GeneralNurse Practitioner06/25/24Team MemberRelationshipSpecialtyStart Date End Date Kristan Kent APRN - CNP [address] [facility] [address] [place] [address] PCP - GeneralNurse Practitioner06/25/24 Team Status: Inactive Member Role Status Dates DON Funes RN MEDICAL BILLER-C Primary Care Provider Active Start: August 13 End: August 13Christina Barr ProviderActiveStart: August 13, 2024 End: August 13, 2024 Team Status: Inactive Member Role Status Dates DON Funes RN MEDICAL BILLER-C Primary Care Provider Active Start: August 16 End: August 16, 2024Mamadou Peña ProviderActiveStart: August 16, 2024 End: August 16, 2024Team MemberRelationshipSpecialtyStart DateEnd Date Kristan Kent APRN - CNP [address] [facility] [address] [facility] [place] [address] PCP - GeneralNurse Practitioner06/25/24Team MemberRelationshipSpecialtyStart Date End Date Kristan Kent APRN - CNP [address] [facility] [address] [facility] [place] [address] PCP - GeneralNurse Practitioner06/25/24 Team Status: Inactive Member Role Status Dates DON Funes RN MEDICAL BILLER-C Primary Care Provider Active Start: August 27 End: August 27JOON Garcia-Rosmery ProviderActiveStart: August 27, 2024 End: August 27, 2024Team MemberRelationshipSpecialtyStart DateEnd Date Generic Provider, No Assigned [place], [place] [address] PCP - GeneralGeneral Practice06/27/24Team MemberRelationshipSpecialtyStart DateEnd Date Kristan Kent APRN - CNP [address] [address] PCP - GeneralNurse Practitioner06/25/24 Team Status: Inactive Member Role Status Dates DON Funes RN MEDICAL BILLER-C Primary Care Provider Active Start: August 31 End: August 31Christina Barr ProviderActiveStart: August 31, 2024 End: August 31, 2024Team MemberRelationshipSpecialtyStart DateEnd Date Kristan Kent APRN - CNP [address] [facility] [address] [facility] [address] [facility] [address] PCP - GeneralNurse Practitioner06/25/24Team MemberRelationshipSpecialtyStart Date End Date Kristan Kent APRN - WAIVER ANALYST [address] [place] [address] PCP - GeneralNurse Practitioner06/25/24Team MemberRelationshipSpecialtyStart Date End Date Kristan Kent APRN - WAIVER ANALYST [address] [place] [address] PCP - GeneralNurse Practitioner06/25/24Team MemberRelationshipSpecialtyStart Date End Date Kristan Kent APRN - WAIVER ANALYST [address] [place] [address] PCP - GeneralNurse Practitioner06/25/24Team MemberRelationshipSpecialtyStart Date End Date Kristan Kent APRN - WAIVER ANALYST [address] [place] [address] PCP - GeneralNurse Practitioner06/25/24 Team Status: Inactive Member Role Status Dates DON Funes RN MEDICAL BILLER-C Primary Care Provider Active Start: September 12, 2024 End: September 12Christina Barr ProviderActiveStart: September 12, 2024 End: September 12, 2024 Team Status: Inactive Member Role Status Dates DON Funes RN MEDICAL BILLER-C Primary Care Provider Active Start: September 15, 2024 End: September 15Christina Barr ProviderActiveStart: September 15, 2024 End: September 15, 2024 Team Status: Inactive Member Role Status Dates DON Funes RN MEDICAL BILLER-C Primary Care Provider Active Start: September 23 End: September 23, 2024Lynn Garsia ProviderActiveStart: September 23, 2024 End: September 23, 2024 Team Status: Inactive Member Role Status Dates DON Funes RN MEDICAL BILLER-C Primary Care Provider Active Start: September 28 End: September 28, 2024Lynn Garsia ProviderActiveStart: September 28, 2024 End: September 28, 2024Team MemberRelationshipSpecialtyStart DateEnd Date Kristan Kent APRN - CNP [address] [facility] [address] [place] [id number] PCP - GeneralNurse Practitioner06/25/24 Team Status: Inactive Member Role Status Dates DON Funes RN MEDICAL BILLER-C Primary Care Provider Active Start: October 03, 2024 End: October 03rtLynn Pena ProviderActiveStart: October 03, 2024 End: October 03, 2024 Team Status: Inactive Member Role Status Dates DON Funes RN MEDICAL BILLER-C Primary Care Provider Active Start: October 06, 2024 End: October 06Christina Barr ProviderActiveStart: October 06, 2024 End: October 06, 2024Team MemberRelationshipSpecialtyStart DateEnd Date Kristan Kent APRN - CNP [address] [facility] [address] [place] [id number] PCP - GeneralNurse Practitioner06/25/24 Team Status: Inactive Member Role Status Dates DON Funse RN MEDICAL BILLER-C Primary Care Provider Active Start: October 13, 2024 End: October 13Lynn Garcia ProviderActiveStart: October 13, 2024 End: October 13, 2024Team MemberRelationshipSpecialtyStart DateEnd Date Kristan Kent APRN - CNP [address] [place] [id number] PCP - GeneralNurse Practitioner06/25/24 Team Status: Inactive Member Role Status Dates DON Funes RN MEDICAL BILLER-C Primary Care Provider Active Start: October 18, 2024 End: October 18luiza Gonzales NP-Rosmery ProviderActiveStart: October 18, 2024 End: October 18, 2024 Team Status: Inactive Member Role Status Dates DON Funes RN MEDICAL BILLER-C Primary Care Provider Active Start: October 21, 2024 End: October 21rtLynn Pena ProviderActiveStart: October 21, 2024 End: October 21, 2024 Team Status: Inactive Member Role Status Dates DON Funes RN MEDICAL BILLER-C Primary Care Provider Active Start: October 23, 2024 End: October 23, 2024Lynn Garsia ProviderActiveStart: October 23, 2024 End: October 23, 2024Team MemberRelationshipSpecialtyStart DateEnd Date Kristan Kent APRN - CNP [address] [place] [id number] PCP - GeneralNurse Practitioner06/25/24Team MemberRelationshipSpecialtyStart Date End Date Kristan Kent APRN - CNP [address] [place] [id number] PCP - GeneralNurse Practitioner06/25/24 Team Status: Inactive Member Role Status Dates DON Funes RN MEDICAL BILLER-C Primary Care Provider Active Start: October 29, 2024 End: October 29rtLynn Pena ProviderActiveStart: October 29, 2024 End: October 29, 2024Team MemberRelationshipSpecialtyStart DateEnd Date Kristan Kent APRN - CNP [address] [address] PCP - GeneralNurse Practitioner06/25/24 Team Status: Inactive Member Role Status Dates DON Funes RN MEDICAL BILLER-C Primary Care Provider Active Start: October End: November 01Christina Boss ProviderActiveStart: November 01, 2024 End: November 01, 2024 Team Status: Inactive Member Role Status Dates DON Funes RN MEDICAL BILLER-C Primary Care Provider Active Start: October End: November 08Christina Barr ProviderActiveStart: November 08, 2024 End: November 08, 2024Team MemberRelationshipSpecialtyStart DateEnd Date Generic Provider, [place] [address] PCP - GeneralGeneral Practice06/27/24Team MemberRelationshipSpecialtyStart DateEnd Date Kristan Kent APRN - CNP [address] [address] PCP - GeneralNurse Practitioner06/25/24 Team Status: Inactive Member Role Status Dates DON Funes RN MEDICAL BILLER-C Primary Care Provider Active Start: October End: November 20JOON Garcia-Rosmery ProviderActiveStart: November 20, 2024 End: November 20, 2024Team MemberRelationshipSpecialtyStart DateEnd Date Kristan Kent APRN - CNP [address] [facility] [address] [place] [id number] PCP - GeneralNurse Practitioner06/25/24Team MemberRelationshipSpecialtyStart Date End Date Kristan Kent APRN - CNP [address] [place] [address] PCP - General Practitioner06/25/24 Team Status: Inactive Member Role Status Dates Kristan Lau APRN MEDICAL BILLER-C Primary Care Provider Active Start: November 242024 End: December 16Lynn Garcia ProviderActiveStart: December 16, 2024 End: December 16, 2024 Team Status: Inactive Member Role Status Dates DON Funes RN MEDICAL BILLER-C Primary Care Provider Active Start: December End: January 02Christina Barr ProviderActiveStart: January 02, 2025 End: January 02, 2025Team MemberRelationshipSpecialtyStart DateEnd [place] [address] [phone] (Work) PCP - General12/04/22 Goals (unrecognized section and content) Goals may be documented in a n alternate section INFORMATION SOURCE (unrecogn ized section and content) DATE CREATED AUTHOR 01/15/2022 [facility] DATE CREATED AUTHOR AUTHOR'S ORGANIZ ATION 11/08/2022 [facility] DATE CREATED AUTHOR AUTHOR'S ORGANIZ ATION 11/28/2023 [facility] DATE CREATED AUTHOR AUTHOR'S ORGANIZ ATION 12/02/2023 [facility] DATE CREATED AUTHOR AUTHOR'S ORGANIZ ATION 12/26/2023 [facility] DATE CREATED AUTHOR AUTHOR'S ORGANIZ ATION 01/10/2024 [facility] DATE CREATED AUTHOR AUTHOR'S ORGANIZ ATION 01/25/2024 [facility] DATE CREATED AUTHOR AUTHOR'S ORGANIZ ATION 02/07/2024 [facility] DATE CREATED AUTHOR AUTHOR'S ORGANIZ ATION 02/15/2024 [facility] DATE CREATED AUTHOR AUTHOR'S ORGANIZ ATION 02/17/2024 [facility] DATE CREATED AUTHOR AUTHOR'S ORGANIZ ATION 02/18/2024 [facility] DATE CREATED AUTHOR AUTHOR'S ORGANIZ ATION 02/22/2024 [facility] DATE CREATED AUTHOR AUTHOR'S ORGANIZ ATION 04/05/2024 [facility] DATE CREATED AUTHOR AUTHOR'S ORGANIZ ATION 04/06/2024 [facility] DATE CREATED AUTHOR AUTHOR'S ORGANIZ ATION 04/24/2024 [facility] DATE CREATED AUTHOR AUTHOR'S ORGANIZ ATION 05/23/2024 [facility] DATE CREATED AUTHOR AUTHOR'S ORGANIZ ATION 05/25/2024 [facility] DATE CREATED AUTHOR AUTHOR'S ORGANIZ ATION 06/08/2024 [facility] DATE CREATED AUTHOR AUTHOR'S ORGANIZ ATION 06/26/2024 [facility] DATE CREATED AUTHOR AUTHOR'S ORGANIZ ATION 06/27/2024 [facility] DATE CREATED AUTHOR AUTHOR'S ORGANIZ ATION 06/27/2024 [facility] DATE CREATED AUTHOR AUTHOR'S ORGANIZ ATION 06/29/2024 [facility] DATE CREATED AUTHOR AUTHOR'S ORGANIZ ATION 07/03/2024 [facility] DATE CREATED AUTHOR AUTHOR'S ORGANIZ ATION 07/05/2024 [facility] DATE CREATED AUTHOR AUTHOR'S ORGANIZ ATION 07/11/2024 [facility] DATE CREATED AUTHOR AUTHOR'S ORGANIZ ATION 07/21/2024 [facility] DATE CREATED AUTHOR AUTHOR'S ORGANIZ ATION 10/12/[address] [facility] DATE CREATED AUTHOR AUTHOR'S ORGANIZ ATION 10/12/2024 [facility] DATE CREATED AUTHOR AUTHOR'S ORGANIZ ATION 10/26/2024 [facility] DATE CREATED AUTHOR AUTHOR'S ORGANIZ ATION 10/31/2024 [facility] DATE CREATED AUTHOR AUTHOR'S ORGANIZ ATION 11/04/2024 [facility] DATE CREATED AUTHOR AUTHOR'S ORGANIZ ATION 11/10/2024 [facility] DATE CREATED AUTHOR AUTHOR'S ORGANIZ ATION 11/14/2024 [facility] DATE CREATED AUTHOR AUTHOR'S ORGANIZ ATION 11/22/2024 [facility] DATE CREATED AUTHOR AUTHOR'S ORGANIZ ATION 11/29/2024 [facility] DATE CREATED AUTHOR AUTHOR'S ORGANIZ ATION 12/02/2024 [facility] DATE CREATED AUTHOR AUTHOR'S ORGANIZ ATION 12/16/2024 [facility] DATE CREATED AUTHOR AUTHOR'S ORGANIZ ATION 12/30/2024 [facility] DATE CREATED AUTHOR AUTHOR'S ORGANIZ ATION 01/10/2025 [facility] DATE CREATED AUTHOR AUTHOR'S ORGANIZ ATION 01/20/2025 [facility] DATE CREATED AUTHOR AUTHOR'S ORGANIZ ATION 01/23/2025 [facility] DATE CREATED AUTHOR AUTHOR'S ORGANIZ ATION 01/31/2025 [facility] DATE CREATED AUTHOR AUTHOR'S ORGANIZ ATION 02/02/2025 [facility] DATE CREATED AUTHOR AUTHOR'S ORGANIZ ATION 02/04/2025 [facility] Scheduled Active and Recently Administ ered Medications (unrecognized section and content) Medication Order/ diazePAM (VALIUM) tablet 5 mg (COMPLETED) 5 mg, Oral, NOW, 1 dose, On Sat12/04/22 at 2004 * 2006 (Given - Provider: Angela Dan RN) fentaNYL (PF) (SUBLIMAZE) injection solution 75 mcg (COMPLETED) 75 mcg, Subcutaneous, NOW, 1 dose, On Sat12/04/22 at 2004 * 2006 (Given - Provider: Angela Dan RN) Medication Order// ondansetron (ZOFRAN ODT) RAPID DISSOLVING tablet 4 mg 4 mg, Oral, EVERY 6 HOURS PRN, Starting on Sat12/04/22 at 1957, Until Discontinued, Nausea/Vomiting * 2006 (Given - Provider: Angela Dan RN) Medication Order///06/2023 acetaminophen (TYLENOL EXTRA STR) tablet 1,000 mg 1,000 mg, Oral, NOW, 1 dose, On 04/27/23 at 2320 * 2328 (Not Given - Provider: Laurita Baires RN - Reason: Refused - Comment: Liver disease per pt) ketorolac (TORADOL) injection 15 mg (COMPLETED) 15 mg, Intramuscular, NOW, 1 dose, On 04/27/23 at 2320 * 2327 (Given - Provider: Laurita Baires, DARSHAN) Lidocaine (ASPERCREME) 4 % topical patch 2 Patch 2 Patch, Topical, DAILY (PATCH), First dose on 04/27/23 at 2315, Until Discontinued, Administer over 12 Hours * 2329 (Patch Applied - Provider: Laurita Baires RN) * 1129 (Due: Patch Removed - Provider: Laurita Baires RN) methocarbamoL (ROBAXIN) tablet 1,000 mg (COMPLETED) 1,000 mg, Oral, NOW, 1 dose, On 04/27/23 at 2320 * 2328 (Given - Provider: Laurita Baires RN) Medication Order06/05//// fentaNYL (PF) (SUBLIMAZE) injection solution 50 mcg (COMPLETED) 50 mcg, Subcutaneous, NOW, 1 dose, On 06/08/23 at 1810 * 1808 (Given - Provider: Melody Perez, DARSHAN) ondansetron (ZOFRAN ODT) RAPID DISSOLVING tablet 4 mg (COMPLETED) 4 mg, Oral, NOW, 1 dose, On 06/08/23 at 1810 * 1807 (Given - Provider: Melody Perez RN) Medication Order/// ketorolac (Toradol) injection 30 mg (COMPLETED) 30 mg, intramuscular, Once, On 06/15/23 at 1525, For 1 dose * 1539 (Given - Provider: Layla Schulz RN) orphenadrine (Norflex) injection 60 mg (COMPLETED) 60 mg, intramuscular, Once, On 06/15/23 at 1525, For 1 dose * 1539 (Given - Provider: Layla Schulz RN) Medication Order/// acetaminophen (TYLENOL EXTRA STR) tablet 1,000 mg (COMPLETED) 1,000 mg, Oral, NOW, 1 dose, On Sat08/09/23 at 2225 * 2223 (Given - Provider: Yarelis Finley RN) fentaNYL (PF) (SUBLIMAZE) injection solution 50 mcg (COMPLETED) 50 mcg, Subcutaneous, NOW, 1 dose, On Sat08/09/23 at 2315 * 2319 (Given - Provider: Yarelis Finley RN) Lidocaine (ASPERCREME) 4 % topical patch 1 Patch 1 Patch, Topical, ONCE, 1 dose, On Sat08/09/23 at 2225, Administer over 12 Hours * 2223 (Patch Applied - Provider: Yarelis Finley RN) methocarbamoL (ROBAXIN) tablet 1,000 mg (COMPLETED) 1,000 mg, Oral, NOW, 1 dose, On Sat08/09/23 at 2225 * 2223 (Given - Provider: Yarelis Finley RN) Medication Order// lidocaine (Xylocaine) 10 mg/mL (1 %) injection 1 mg 1 mg (0.1 mL), subcutaneous, Once, On Sat08/21/23 at 1015, For 1 dose, Recovery (only), To be used for IV insertion ONLY * 1015 (Due) oxygen (O2) therapy inhalation, Continuous - Inhalation, First dose on Sat08/21/23 at 1015, Recovery (only), Device: Nasal Cannula, Rate in liters per minute: Other, Custom Value: 1-6 LPM, Keep O2 Sat Above: 92% * 1015 (Due) * 1999 (Due) Medication Order// lactated Ringer's infusion 100 mL/hr, intravenous, Continuous, Starting on Sat08/21/23 at 1015, Recovery (only) * 1015 (Due) Medication Order// bacitracin ointment (CANCELED) As needed, Starting on Sat08/21/23 at 0907, Intraprocedure * 0907 (Given - Provider: Elke Adams MD) bupivacaine PF (Marcaine) 0.25 % (2.5 mg/mL) 20 mL, lidocaine-epinephrine (Xylocaine W/EPI) 1 %-1:100,000 20 mL, sodium bicarbonate 6 mEq syringe (CANCELED) As needed, Starting on Sat08/21/23 at 0858, Intraprocedure * 0858 (Canceled Entry - Provider: Elke Adams MD) * 0918 (Given - Provider: Elke Adams MD) * 0930 (Given - Provider: Elke Adams MD) droperidol [...] of dose., If ordered PRN for pain, nurseis permitted to administer this medication for higher pain scores based on patient preference? Yes ondansetron (Zofran) injection 4 mg 4 mg, intravenous, Once as needed, nausea/vomiting, first line, Starting on Sat08/21/23 at 0946, For 1 dose, Recovery (only), When administering via IV Push, administer over 3-5 minutes. sterile water injection (COMPLETED) Continuous PRN, Starting on Sat08/21/23 at 0859, Intraprocedure * 0859 (New Bag - Provider: Elke Adams MD - Comment: used to find edidural space) Medication Order09/07/// cyclobenzaprine (FLEXERIL) tablet 10 mg (COMPLETED) 10 mg, Oral, ONCE, 1 dose, On Sat09/10/23 at 1445 * 1441 (Given - Provider: Michelle Sweet RN) dexAMETHasone (DECADRON) tablet 10 mg (COMPLETED) 10 mg, Oral, ONCE, 1 dose, On Sat09/10/23 at 1445 * 1441 (Given - Provider: Michelle Sweet RN) oxyCODONE-acetaminophen (PERCOCET) 5-325 MG per tablet 1 tablet (COMPLETED) 1 tablet, Oral, ONCE, 1 dose, On Sat09/10/23 at 1445, Maximum dose of acetaminophen is 4000 mg fromall sources in 24 hours. * 1441 (Given - Provider: Michelle Sweet RN) Medication Order/ diazePAM (VALIUM) tablet 5 mg (COMPLETED) 5 mg, Oral, ONCE, 1 dose, On Sat10/30/23 at 2015 * 2010 (Given - Provider: Nikolas Templeton RN) morphine injection 4 mg (COMPLETED) 4 mg, IntraVENous, ONCE, 1 dose, On Sat10/30/23 at 1900, If oral and IV narcotics ordered, use oral first and only use IV if oral is ineffective or cannot take oral. Do Not give oral and IV within 1 hour of each other unless specifically ordered. * 1907 (Given - Provider: Tracy Falk RN) morphine injection 4 mg (COMPLETED) 4 mg, IntraVENous, ONCE, 1 dose, On Sat10/30/23 at 2145 * 2134 (Given - Provider: Nikolas Templeton RN) morphine injection 4 mg (COMPLETED) 4 mg, IntraVENous, ONCE, 1 dose, On Sat10/31/23 at 0015 * 0007 (Given - Provider: Nikolas Templeton RN) sodium chloride 0.9 % bolus 1,000 mL (COMPLETED) 1,000 mL (8.82 mL/kg), IntraVENous, at 983.6 mL/hr, Administer over 61 Minutes, ONCE, On Sat10/30/23at 2014, For 1 dose * 2100 (New Bag - Provider: Nikolas Templeton, DARSHAN) * 2201 (Stopped - Provider: Nikolas Templeton, DARSHAN) Medication Order// gadoteridol (PROHANCE) injection 20 mL (COMPLETED) 20 mL, IntraVENous, IMG ONCE PRN, 1 dose, Starting on Sat10/30/23 at 2104, Until Sat10/30/23 at 211,Other * 2109 (Given - Provider: Joan Dumont) sodium chloride flush 0.9 % injection 10 mL 10 mL, IntraVENous, PRN, Starting on Sat10/30/23 at 2104, Until Discontinued, Line Care * 2109 (Given - Provider: Joan Dumont) Medication Order//01/2024 iohexoL (OMNIPAQUE) 350 mg iodine/mL intravenous solution 100 mL (COMPLETED) 100 mL, IV Push, TO CT SCAN-ONCE, 1 dose, On Sat12/04/23 at 2250 * 2243 (Given - Provider: Francisco J Valerio, RT(R)) methocarbamoL (ROBAXIN) tablet 1,000 mg (COMPLETED) 1,000 mg, Oral, NOW, 1 dose, On Sat12/04/23 at 2310 * 2304 (Given - Provider: Ilya Carrillo RN) morphine injection syringe 4 mg (COMPLETED) 4 mg, IV Push, NOW, 1 dose, On Sat12/04/23 at 2235 * 2236 (Given - Provider: Ilya Carrillo RN) saline flush (COMPLETED) IV Push, TO CT SCAN-ONCE, 1 dose, On Sat12/04/23 at 2250 * 2244 (Given - Provider: Francisco J Valerio RT(R)) Medication Order//09/2023 cyclobenzaprine (Flexeril) tablet 5 mg (COMPLETED) 5 mg, oral, Once, On Sat12/30/23 at 1925, For 1 dose * 1957 (Given - Provider: Piero Lang LPN) dexAMETHasone (Decadron) tablet 10 mg (COMPLETED) 10 mg, oral, Once, On Sat12/30/23 at 1925, For 1 dose * 1957 (Given - Provider: Piero Lang LPN) lidocaine 4 % patch 1 patch 1 patch, transdermal, Administer over 12 Hours, Once, On Sat12/30/23 at 1925, For 1 dose, Apply to back. Patch will remain on for 12 hours, then removed for [address] patch directly overany surgical incisions or wounds. * 1958 (Medication Applied - Provider: Piero Lang LPN - Comment: back) oxyCODONE-acetaminophen (Percocet) 5-325 mg per tablet 1 tablet (COMPLETED) 1 tablet, oral, Once, On Sat12/30/23 at 1925, For 1 dose, If ordered PRN for pain, nurse is permitted to administer this medication for higher pain scores based on patient preference? Yes * 1957 (Given - Provider: Piero Lang LPN) Medication Order/ dexAMETHasone (Decadron) tablet 4 mg 4 mg, oral, Every 6 hours scheduled, First dose on Sat01/02/24 at 0000 * 0545 (Given - Provider: Maria Alejandra Wells RN) * 1148 (Given - Provider: Elsy Santa RN) * 1743 (Given - Provider: Daysi Pina LPN) * 0055 (Given - Provider: Suzie Bello RN) * 0505 (Given - Provider: Suzie Bello RN) * 1225 (Given - Provider: Elsy Santa RN) * 1722 (Given - Provider: Elsy Santa RN) * 0030 (Given - Provider: Suzie Bello RN) * 0504 (Given - Provider: Suzie Bello RN) * 1214 (Given - Provider: Yaritza Rae, DARSHAN) * 1800 (Due) enoxaparin (Lovenox) syringe 40 mg 40 mg, subcutaneous, Every 12 hours scheduled, First dose on Sat01/01/24 at 0900 * 0803 (Given - Provider: Elsy Santa RN) * 2050 (Given - Provider: Suzie Bello RN) * 0852 (Given - Provider: Elsy Santa RN) * 2025 (Given - Provider: Suzie Bello RN) * 0804 (Given - Provider: Yaritza Rae RN) * 2100 (Due) FLUoxetine (PROzac) capsule 60 mg 60 mg, oral, Daily, First dose on Sat01/02/24 at 0900 * 0803 (Given - Provider: Elsy Santa RN) * 0900 (Given - Provider: Elsy Santa RN) * 0804 (Given - Provider: Yaritza Rae, DARSHAN) lidocaine 4 % patch 1 patch 1 patch, transdermal, Administer over 12 Hours, Daily, First dose on Sat01/02/24 at 0900, Apply tolower back to the left of the spine * 0804 (Medication Applied - Provider: Elsy Santa RN - Comment: left hip) * 2051 (Medication Removed - Provider: Suzie Bello RN) * 0852 (Medication Applied - Provider: Elsy Santa RN - Comment: left flank) * 2026 (Medication Removed - Provider: Suzie Bello RN) * 0927 (Medication Applied - Provider: Yaritza Rae RN - Comment: left side lower back) * 2126 (Due: Medication Removed - Provider: Yaritza Rae RN) melatonin tablet 6 mg (COMPLETED) 6 mg, oral, Once, On Sat01/02/24 at 0230, For 1 dose * 0223 (Given - Provider: Maria Alejandra Wells RN) methocarbamol (Robaxin) tablet 500 mg 500 mg, oral, 3 times daily, First dose on Sat01/01/24 at 2230 * 0804 (Given - Provider: Elsy Santa RN) * 1421 (Given - Provider: Elsy Santa RN) * 2050 (Given - Provider: Suzie Bello RN) * 0856 (Given - Provider: Elsy Santa RN) * 152 (Given - Provider: Elsy Santa RN) * 2025 (Given - Provider: Suzie Bello RN) * 0804 (Given - Provider: Yaritza Rae RN) * 1500 (Due) * 2100 (Due) pantoprazole (ProtoNix) EC tablet 40 mg 40 mg, oral, Daily before breakfast, First dose on Sat01/02/24 at 0700, Do not crush, chew, or split. * 0545 (Given - Provider: Maria Alejandra Wells RN) * 0505 (Given - Provider: Suzie Bello, DARSHAN) * 0504 (Given - Provider: Suzie Bello, DARSHAN) polyethylene glycol (Glycolax, Miralax) packet 17 g 17 g, oral, Daily, First dose on Sat01/02/24 at 0900, Bowel Regimen - for prevention of constipation. * 0803 (Given - Provider: Elsy Santa RN) * 0905 (Not Given - Provider: Elsy Santa RN - Reason: Patient/family refused) * 0811 (Not Given - Provider: Yaritza Rae RN - Reason: Patient/family refused) Medication Order diphenhydrAMINE (BENADryl) capsule 25 mg 25 mg, oral, Every 6 hours PRN, itching, Starting on Sat01/04/24 at 1116 hydrALAZINE (Apresoline) injection 10 mg 10 mg, intravenous, Every 8 hours PRN, SPB > 160, Starting on Sat01/03/24 at 1909 * 0504 (Given - Provider: Suzie Bello RN) HYDROmorphone (Dilaudid) injection 0.4 mg (CANCELED) 0.4 mg, intravenous, Every 3 hours PRN, pain severe (7-10), first line, Starting on Shira 01/02/24 [id number] * 1510 (Given - Provider: Elsy Santa RN) * 2051 (Given - Provider: Suzie Bello RN) * 0105 (Given - Provider: Suzie Bello RN) * 0505 (Given - Provider: Suzie Bello RN) * 0857 (Given - Provider: Elsy Santa RN) HYDROmorphone (Dilaudid) injection 0.5 mg 0.5 mg, intravenous, Every 3 hours PRN, pain severe (7-10), first line, Starting on Sat01/03/24 [id number] * 1225 (Given - Provider: Elsy Santa RN) * 1527 (Given - Provider: Elsy Santa RN) * 202 (Given - Provider: Suzie Bello, DARSHAN) * 0030 (Given - Provider: Suzie Bello RN) * 0504 (Given - Provider: Suzie Bello RN) * 0927 (Given - Provider: Yaritza Rae, DARSHAN) * 1314 (Given - Provider: Yaritza Rae, RN) HYDROmorphone PF (Dilaudid) injection 0.2 mg (CANCELED) 0.2 mg, intravenous, Every 4 hours PRN, pain severe (7-10), first line, Starting on Shira 01/02/24 [id number] * 1033 (Given - Provider: Elsy Santa RN) morphine injection 2 mg (CANCELED) 2 mg, intravenous, Every 4 hours PRN, pain severe (7-10), first line, Starting on Sat01/01/24 at 2225 * 0344 (Given - Provider: Maria Alejandra Wells RN) * 0757 (Given - Provider: Elsy Santa RN) ondansetron (Zofran) injection 4 mg(Linked Group 1) 4 mg, intravenous, Every 8 hours PRN, nausea/vomiting, first line, Starting on Sat01/01/24 at 2225,1st Line. Give IV if patient is unable to take orally. If inadequate response within 60 minutes, proceed to next-line agent for same PRN reason or contact provider if no further options ordered. Whenadministering via IV Push, administer over 3-5 minutes. [...] pain scores based on patient preference? Yes * 1412 (Given - Provider: Elsy Santa RN) * 2133 (Given - Provider: Suzie Bello RN) * 0804 (Given - Provider: Yaritza Rae, DARSHAN) * 1214 (Given - Provider: Yaritza Rae, DARSHAN) prochlorperazine (Compazine) injection 10 mg(Linked Group 2) 10 mg, intravenous, Every 6 hours PRN, nausea/vomiting, first line, Starting on Sat01/02/24 at 0946, Give IV if patient is unable to take orally. * 1636 (Given - Provider: Elsy Santa RN) prochlorperazine (Compazine) suppository 25 mg(Linked Group 2) 25 mg, rectal, Every 12 hours PRN, nausea/vomiting, first line, Starting on Shira 01/02/24 at 0946, Give MS if patient is unable to take orally or receive by injection. * 1636 (See Alternative - Provider: Elsy Santa RN) prochlorperazine (Compazine) tablet 10 mg(Linked Group 2) 10 mg, oral, Every 6 hours PRN, nausea/vomiting, first line, Starting on Shira 01/02/24 at 0946 * 1636 (See Alternative - Provider: Elsy Santa RN) zolpidem (Ambien) tablet 5 mg 5 mg, oral, Nightly PRN, sleep, Starting on Shira 01/02/24 at 1758 * 2050 (Given - Provider: Suzie Bello RN) * 2025 (Given - Provider: Suzie Bello RN) Order Group 1: ondansetron ODT (Zofran-ODT) disintegrating [...] nausea/vomiting, first line, Starting on Sat01/01/24 at 2225,1st Line. Give IV if patient is unable to take orally. If inadequate response within 60 minutes, proceed to next-line agent for same PRN reason or contact provider if no further options ordered. Whenadministering via IV Push, administer over 3-5 minutes. Group 2: prochlorperazine (Compazine) tablet 10 mgJump to med 10 mg, oral, Every 6 hours PRN, nausea/vomiting, first line, Starting on Sat01/02/24 at 0946 Or prochlorperazine (Compazine) injection 10 mgJump to med 10 mg, intravenous, Every 6 hours PRN, nausea/vomiting, first line, Starting on Sat01/02/24 at 0946, Give IV if patient is unable to take orally. Or prochlorperazine (Compazine) suppository 25 mgJump to med 25 mg, rectal, Every 12 hours PRN, nausea/vomiting, first line, Starting on Sat01/02/24 at 0946, Give MS if patient is unable to take orally or receive by injection. Medication Order// docusate sodium (Colace) capsule 100 mg 100 mg, oral, 2 times daily, First dose on Sat01/07/24 at 0900 * 0815 (Given - Provider: Марина Fried RN) * 1958 (Given - Provider: Daysi Santos, RN) * 08 (Given - Provider: Berenice Collazo, DARSHAN) * 2100 (Due) enoxaparin (Lovenox) syringe 40 mg 40 mg, subcutaneous, Every 12 hours scheduled, First dose on Sat01/06/24 at 2205 * 2205 (Due) * 0914 (Not Given - Provider: Марина Fried RN - Reason: Patient/family refused) * 1999 (Given - Provider: Daysi Santos, DARSHAN) * 0824 (Given - Provider: Berenice Collazo, RN) * 2100 (Due) FLUoxetine (PROzac) capsule 60 mg 60 mg, oral, Daily, First dose on Sat01/07/24 at 0900 * 0815 (Given - Provider: аМрина Fried, DARSHAN) * 0824 (Given - Provider: Berenice Collazo, RN) HYDROmorphone (Dilaudid) injection 0.5 mg (COMPLETED) 0.5 mg, intravenous, Once, On Sat01/06/24 at 1935, For 1 dose * 194 (Given - Provider: Miki Wright RN) lidocaine 4 % patch 1 patch 1 patch, transdermal, Administer over 12 Hours, Daily, First dose on Sat01/07/24 at 0900, Apply tolower back * 0914 (Not Given - Provider: Марина Fried RN - Reason: Patient/family refused) * 0821 (Not Given - Provider: Berenice Collazo, DARSHAN - Reason: Patient/family refused) pantoprazole (ProtoNix) EC tablet 40 mg 40 mg, oral, Daily before breakfast, First dose on Sat01/07/24 at 0700, Do not crush, chew, or split. * 0622 (Given - Provider: Alondra Gonzalez, DARSHAN) * 0629 (Given - Provider: Mary Ann Castro LPN) Medication Order// hydrALAZINE (Apresoline) injection 10 mg 10 mg, intravenous, Every 8 hours PRN, SBP > 150, Starting on Sat01/07/24 at 2023 HYDROmorphone (Dilaudid) injection 0.5 mg 0.5 mg, intravenous, Every 4 hours PRN, pain severe (7-10), first line, Starting on Sat01/06/24 [id number] * 0007 (Given - Provider: Natty Sandoval RN) * 0435 (Given - Provider: Alondra Gonzalez, DARSHAN) * 0931 (Given - Provider: Марина Fried RN) * 1314 (Given - Provider: Shirley Mills, DARSHAN) * 1717 (Given - Provider: Марина Fried RN) * 2343 (Given - Provider: Daysi Santos, RN) * 0632 (Given - Provider: Daysi Santos, RN) * 1127 (Given - Provider: Berenice Collazo, RN) methocarbamol (Robaxin) tablet 500 mg 500 mg, oral, Every 8 hours PRN, muscle spasms, Starting on Sat01/06/24 at 2200 * 0309 (Given - Provider: Natty Sandoval RN) * 2344 (Given - Provider: Daysi Santos, DARSHAN) naloxone [...] via IV Push, administer over 3-5 minutes. * 0007 (Given - Provider: Natty Sandoval, RN) * 0859 (Given - Provider: Berenice Collazo, RN) oxyCODONE (Roxicodone) immediate release tablet 10 mg 10 mg, oral, Every 4 hours PRN, pain moderate (4-6), first line, Starting on Sat01/06/24 at 2200 * 2204 (Given - Provider: Miki Wright, RN) * 0309 (Given - Provider: Natty Sandoval, DARSHAN) * 0721 (Given - Provider: Alondra Gonzalez RN) * 1139 (Given - Provider: Марина Fried, DARSHAN) * 1999 (Given - Provider: Daysi Santos, RN) * 0337 (Given - Provider: Mary Ann Castro LPN) * 0824 (Given - Provider: Berenice Collazo, DARSHAN) zolpidem (Ambien) tablet 5 mg 5 mg, oral, Nightly PRN, sleep, Starting on Sat01/07/24 at 2100 * 1959 (Given - Provider: Daysi Santos, RN) Medication Order// LORazepam (Ativan) injection 1 mg (COMPLETED) 1 mg, intravenous, Administer over 5 Minutes, Once, On Sat01/10/24 at 2000, For 1 dose, Please give just prior to MRI * 2017 (Given - Provider: Donna Del Rosario, RN) morphine injection 4 mg (COMPLETED) 4 mg, intravenous, Once, On Sat01/10/24 at 2000, For 1 dose * 2013 (Given - Provider: Donna Del Rosario, DARSHAN) ondansetron (Zofran) injection 4 mg (COMPLETED) 4 mg, intravenous, Once, On Sat01/10/24 at 2000, For 1 dose, When administering via IV Push, administer over 3-5 minutes. * 2011 (Given - Provider: Donna Del Rosario, DARSHAN) oxyCODONE (Roxicodone) immediate release tablet 5 mg (COMPLETED) 5 mg, oral, Once, On Sat01/10/24 at 2210, For 1 dose, If ordered PRN for pain, nurse is permitted to administer this medication for higher pain scores based on patient preference? Yes * 2221 (Given - Provider: Donna Del Rosario, DARSHAN) Medication Order// morphine injection 4 mg (COMPLETED) 4 mg, intramuscular, Once, On Sat01/13/24 at 1420, For 1 dose * 1439 (Given - Provider: Elke Alfaro, DARSHAN) Medication Order// diazePAM (Valium) tablet 5 mg (COMPLETED) 5 mg, oral, Once, On Sat01/21/24 at 1725, For 1 dose * 1738 (Given - Provider: Kvng Reynoso RN) ketorolac (Toradol) injection 30 mg (COMPLETED) 30 mg, intramuscular, Once, On Sat01/21/24 at 1715, For 1 dose * 1738 (Given - Provider: Kvng Reynoso RN) morphine injection 4 mg (COMPLETED) 4 mg, intramuscular, Once, On Sat01/21/24 at 1725, For 1 dose * 1738 (Given - Provider: Kvng Reynoso RN) Medication Order//20230325/03/2023 morphine injection 4 mg (COMPLETED) 4 mg, intramuscular, Once, On Sat01/24/24 at 2015, For 1 dose * 2016 (Given - Provider: Coty Diego LPN) Medication Order01/24/20230325//20230325/06/2023 dexAMETHasone (PF) (Decadron) injection 10 mg (COMPLETED) 10 mg, intramuscular, Once, On Sat01/26/24 at 1700, For 1 dose * 1709 (Given - Provider: Aliyah Shannon RN) HYDROmorphone (Dilaudid) injection 1 mg (COMPLETED) 1 mg, intravenous, Once, On Sat01/26/24 at 2340, For 1 dose * 0000 (Given - Provider: Zhang Romero RN) ketorolac (Toradol) injection 15 mg (COMPLETED) 15 mg, intramuscular, Once, On Sat01/26/24 at 1700, For 1 dose * 1704 (Given - Provider: Aliyah Shannon RN) lidocaine 4 % patch 1 patch 1 patch, transdermal, Administer over 12 Hours, Daily, First dose on 01/26/24 at 1700, Apply to back. Patch will remain on for 12 hours, then removed for [address] patch directly overany surgical incisions or wounds. * 1704 (Medication Applied - Provider: Aliyah Shannon RN) * 0504 (Due: Medication Removed - Provider: Aliyah Shannon RN) * 0900 (Due) methocarbamol (Robaxin) tablet 1,000 mg (COMPLETED) 1,000 mg, oral, Once, On 01/26/24 at 1700, For 1 dose * 170 (Given - Provider: Aliyah Shannon RN) morphine injection 2 mg (COMPLETED) 2 mg, intramuscular, Once, On Sat01/26/24 at 1755, For 1 dose * 1817 (Given - Provider: Aliyah Shannon RN) morphine injection 4 mg (COMPLETED) 4 mg, intravenous, Once, On 01/26/24 at 2030, For 1 dose * 2018 (Given - Provider: Natalee Claudio RN) Medication Order//07/2023 docusate sodium (Colace) capsule 100 mg (CANCELED) 100 mg, oral, 2 times daily, First dose on Sat01/27/24 at 0900 * 0924 (Given - Provider: Iliana Fox RN) flu vaccine trivalent (PF) (Fluarix/Fluzone/Flulaval) 6 months or greater injection 0.5 mL, intramuscular, During hospitalization, Starting on Sat01/27/24 at 0507, For 1 dose FLUoxetine (PROzac) capsule 60 mg 60 mg, oral, Daily, First dose on Sat01/27/24 at 0900 * 0924 (Given - Provider: Iliana Fox RN) * 0823 (Given - Provider: Edwina Lopez RN) lidocaine 4 % patch 1 patch 1 patch, transdermal, Administer over 12 Hours, Daily, First dose on Sat01/27/24 at 1115, Apply to lumbar spine area; Patch will remain on for 12 hours, then removed for [address] patch directly over any surgical incisions or wounds. * 1128 (Medication Applied - Provider: Iliana Fox RN - Comment: left lower back) * 2314 (Medication Removed - Provider: Mellissa Chung RN) * 0823 (Medication Applied - Provider: Edwina Lopez RN - Comment: left back) * 2022 (Due: Medication Removed - Provider: Edwina Lopez RN) methocarbamol (Robaxin) tablet 500 mg (CANCELED) 500 mg, oral, 3 times daily, First dose on Sat01/27/24 at 0900 * 0924 (Given - Provider: Iliana Fox RN) pantoprazole (ProtoNix) EC tablet 40 mg 40 mg, oral, Daily before breakfast, First dose on Sat01/27/24 at 0700, Do not crush, chew, or split. * 0613 (Given - Provider: Elke Gtz RN) * 0620 (Given - Provider: Mellissa Chung RN) polyethylene glycol (Glycolax, Miralax) packet 17 g 17 g, oral, Daily, First dose on Sat01/27/24 at 0900, Bowel Regimen - for prevention of constipation. * 0929 (Not Given - Provider: Iliana Fox RN - Reason: NPO) * 0823 (Given - Provider: Edwina Lopez RN) sennosides-docusate sodium (Judy-Colace) 8.6-50 mg per tablet 1 tablet 1 tablet, oral, 2 times daily, First dose on Sat01/27/24 at 1100 * 1102 (Given - Provider: Iliana Fox RN) * 2056 (Given - Provider: Mellissa Chung RN) * 0823 (Given - Provider: Edwina Lopez RN) * 2099 (Due) topiramate (Topamax) tablet 25 mg 25 mg, oral, Nightly, First dose on Sat01/27/24 at 2100 * 2056 (Given - Provider: Mellissa Chung RN) * 2100 (Due) Medication Order//07/2023 alum-mag hydroxide-simeth (Mylanta) 200-200-20 mg/5 mL oral [...] first line, Starting on Sat01/27/24 at 1028 * 1102 (Given - Provider: Iliana Fox RN) * 1935 (Given - Provider: Mellissa Chung, DARSHAN) * 0823 (Given - Provider: Edwina Lopez RN) [...] other NSAIDs (such as ibuprofen or naproxen). * 1514 (Given - Provider: Iliana Fox RN) * 2322 (Given - Provider: Mellissa Chung RN) lubricating [...] pain breakthrough, Starting on Sat01/27/24 at 0414 * 0605 (Given - Provider: Elke Gtz RN) ondansetron (Zofran) injection 4 mg 4 mg, intravenous, Every 4 hours PRN, nausea/vomiting, first line, Starting on Sat01/27/24 at 0415,When administering via IV Push, administer over 3-5 minutes. oxyCODONE (Roxicodone) immediate release tablet 10 mg (CANCELED) 10 mg, oral, Every 8 hours PRN, pain severe (7-10), first line, Starting on Sat01/27/24 at 0421, Ifordered PRN for pain, nurse is permitted to administer this medication for higher pain scores basedon patient preference? Yes * 0435 (Given - Provider: Elke Gtz RN) oxyCODONE (Roxicodone) immediate release tablet 10 mg 10 mg, oral, Every 8 hours PRN, pain moderate (4-6), second line, Starting on Sat01/27/24 at 1042, If ordered PRN for pain, nurse is permitted to administer this medication for higher pain scores based on patient preference? Yes * 1611 (Given - Provider: Iliana Fox RN) * 0623 (Given - Provider: Mellissa Chung, DARSHAN) polyethylene glycol (Glycolax, Miralax) packet 17 g 17 g, oral, Daily PRN, constipation, Starting on Sat01/27/24 at 1030 simethicone (Mylicon) chewable tablet 80 mg 80 mg, oral, 4 times daily PRN, flatulence, Starting on Sat01/27/24 at 0415 sodium chloride (Gates) 0.65 % nasal spray 1 spray 1 spray, Each Nostril, As needed, congestion, Starting on Sat01/27/24 at 0415 zolpidem (Ambien) tablet 5 mg 5 mg, oral, Nightly PRN, sleep, Starting on Sat01/27/24 at 0421 * 2316 (Given - Provider: Mellissa Chung, DARSHAN) Medication Order//09/2023 HYDROmorphone (Dilaudid) injection 1 mg (COMPLETED) 1 mg, intramuscular, Once, On Shira 01/30/24 at 1140, For 1 dose * 1149 (Given - Provider: Justina Orozco RN) ondansetron ODT (Zofran-ODT) disintegrating tablet 4 mg (COMPLETED) 4 mg, oral, Once, On Shira 01/30/24 at 1140, For 1 dose * 1149 (Given - Provider: Justina Orozco RN) Medication Order/ povidone-iodine 5 % kit kit 1 Application (COMPLETED) 1 Application (1 kit), Topical, Once, On Shira 02/06/24 at 1345, For 1 dose, Preprocedure, Apply povidone iodine 5% to surgical area and bilateral nares (unless allergic) in pre-op the morning of surgery. * 1414 (Given - Provider: Aminata Spears, DARSHAN) promethazine (Phenergan) 6.25 mg in sodium chloride 0.9% 50 mL IV (COMPLETED) 6.25 mg, intravenous, Administer over 15 Minutes, Once, On Shira 02/06/24 at 1800, For 1 dose, Recovery (only) * 1758 (New Bag - Provider: Aminata Spears RN) * 1815 (Stopped - Provider: Aminata Spears RN) Medication Order// lactated Ringer's infusion 20 mL/hr, intravenous, Continuous, Starting on Shira 02/06/24 at 1345, For 1 day, Preprocedure * 1413 (New Bag - Provider: Aminata Spears RN) * 1430 (Continued by Anesthesia - Provider: Gerardo Peña APRN-PLASTIC PRESS MOLDER) lactated Ringer's infusion 100 mL/hr, intravenous, Continuous, Starting on Shira 02/06/24 at 1730, For 1 day, Recovery (only) * 1730 (Due) Medication Order// albuterol 2.5 mg /3 mL (0.083 %) nebulizer solution 2.5 mg 2.5 mg, nebulization, Once as needed, wheezing, Starting on Shira 02/06/24 at 1704, For 1 dose, Recovery (only) bupivacaine PF 0.5 % (Marcaine) 0.5 % (5 mg/mL) injection (CANCELED) As needed, Starting on Shira 02/06/24 at 1658, Intraprocedure * 1658 (Given - Provider: Judah Woodard MD) diphenhydrAMINE (BENADryl) injection 12.5 mg 12.5 mg, intravenous, Once as needed, itching, allergic reaction, Starting on Shira 02/06/24 at 1704,For 1 dose, Recovery (only) droperidol (Inapsine) injection 0.625 mg 0.625 mg, intravenous, Once as needed, nausea/vomiting, second line, Starting on Shira 02/06/24 at 1704, For 1 dose, Recovery (only), Monitor QTc while on therapy (2 lead monitoring) gelatin sponge,absorb-porcine (Gelfoam) sponge (CANCELED) As needed, Starting on Shira 02/06/24 at 1524, Intraprocedure * 1524 (Given - Provider: Judah Woodard MD) HYDROmorphone (Dilaudid) injection 0.25 mg 0.25 mg, intravenous, Every 5 min PRN, pain moderate (4-6), first line, Starting on Shira 02/06/24 [id number], Recovery (only), Max total of 4 mg regardless of dose. HYDROmorphone (Dilaudid) injection 0.5 mg 0.5 mg, intravenous, Every 5 min PRN, pain severe (7-10), first line, Starting on Shira 02/06/24 at 1704, Recovery (only), Max total of 4 mg regardless of dose. * 1719 (Given - Provider: Aminata Spears RN) lidocaine-epinephrine (Xylocaine W/EPI) 1 %-1:100,000 injection (CANCELED) As needed, Starting on Shira 02/06/24 at 1524, Intraprocedure * 1524 (Given - Provider: Judah Woodard MD) methylPREDNISolone acetate (DEPO-Medrol) injection (CANCELED) As needed, Starting on Shira 02/06/24 at 1648, Intraprocedure * 1648 (Given - Provider: Judah Woodard MD) ondansetron (Zofran) injection 4 [...] Starting on Shira 02/06/24 at 1524, Intraprocedure * 1524 (Given - Provider: Judah Woodard MD) Medication Order// ketorolac (Toradol) injection 15 mg (COMPLETED) 15 mg, intramuscular, Once, On 02/09/24 at 1200, For 1 dose * 1203 (Given - Provider: Nilesh Fragoso RN) oxyCODONE (Roxicodone) immediate release tablet 10 mg (COMPLETED) 10 mg, oral, Once, On 02/09/24 at 1155, For 1 dose, If ordered PRN for pain, nurse is permittedto administer this medication for higher pain scores based on patient preference? Yes, Indications:pain * 1204 (Given - Provider: Nilesh Fragoso RN) oxyCODONE (Roxicodone) immediate release tablet 5 mg (COMPLETED) 5 mg, oral, Once, On 02/09/24 at 1340, For 1 dose, If ordered PRN for pain, nurse is permitted to administer this medication for higher pain scores based on patient preference? Yes, Indications: pain * 1352 (Given - Provider: Nilesh Fragoso RN) Medication Order09/13//// oxyCODONE-acetaminophen (Percocet) 5-325 mg per tablet 1 tablet (COMPLETED) 1 tablet, oral, Once, On Sat09/16/23 at 1745, For 1 dose, If ordered PRN for pain, nurse is permitted to administer this medication for higher pain scores based on patient preference? Yes * 1759 (Given - Provider: Justina Orozco, DRASHAN) traMADol (Ultram) tablet 50 mg (COMPLETED) 50 mg, oral, Once, On Sat09/16/23 at 1650, For 1 dose, If ordered PRN for pain, nurse is permitted to administer this medication for higher pain scores based on patient preference? Yes * 1653 (Given - Provider: Justina Orozco, DARSHAN) Medication Order// traMADol (Ultram) tablet 50 mg (COMPLETED) 50 mg, oral, Once, On Shira 09/19/23 at 1425, For 1 dose, If ordered PRN for pain, nurse is permitted to administer this medication for higher pain scores based on patient preference? Yes * 1427 (Given - Provider: Stephanie Samuel RN) Medication Order// lidocaine PF (Xylocaine) 10 mg/mL (1 %) injection 1 mg 1 mg (0.1 mL), subcutaneous, Once, On Sat09/23/23 at 0800, For 1 dose, Recovery (only), To be used for IV insertion ONLY * 0800 (Due) methocarbamol (Robaxin) injection 1,000 mg 1,000 mg, intravenous, Administer over 4 Minutes, Once, On Sat09/23/23 at 1130, For 1 dose, Recovery(only) * 1130 (Due) Medication Order// lactated Ringer's infusion 100 mL/hr, intravenous, Continuous, Starting on Sat09/23/23 at 1130, Recovery (only) * 1130 (New Bag - Provider: Swati Mcgarry, DARSHAN) * 1215 (Rate/Dose Verify - Provider: Swati Mcgarry, DARSHAN) Medication Order// albuterol 2.5 mg /3 mL (0.083 %) nebulizer solution 2.5 mg 2.5 mg, nebulization, Once as needed, wheezing, Starting on Sat09/23/23 at 1113, For 1 dose, Recovery (only) BUPivacaine HCl (Marcaine) 0.25 % (2.5 mg/mL) injection (CANCELED) As needed, Starting on Sat09/23/23 at 0859, Intraprocedure * 0859 (Given - Provider: Elke Adams MD - Comment: 0.25% Bupivacaine 30mls mixed with 1% Lidocaine with EPinephrine 30mls and 8.4% Sodium Bicard 6mls) ceFAZolin (Ancef) injection (CANCELED) As needed, Starting on Sat09/23/23 at 0903, Intraprocedure * 0903 (Given - Provider: Elke Adams MD - Comment: Normal Saline 1 liter mixed with Ancef 1G and Polymyxin 500,000 as irrigation.) droperidol (Inapsine) injection 0.625 mg 0.625 mg, intravenous, Once as needed, nausea/vomiting, second line, Starting on Sat09/23/23 at 1113, For 1 dose, Recovery (only), Monitor QTc while on therapy (2 lead monitoring) HYDROmorphone (Dilaudid) injection 0.2 mg 0.2 mg, intravenous, Every 5 min PRN, pain moderate (4-6), first line, Starting on Sat09/23/23 at 1113, Recovery (only), Max total of 4 mg regardless of dose. HYDROmorphone (Dilaudid) injection 0.5 mg 0.5 mg, intravenous, Every 5 min PRN, pain severe (7-10), first line, Starting on Sat09/23/23 at 1113, Recovery (only), Max total of 4 mg regardless of dose. * 1135 (Given - Provider: Swati Mcgarry RN) * 1142 (Given - Provider: Swati Mcgarry RN) labetaloL (Normodyne,Trandate) injection 5 mg 5 mg, intravenous, Administer over 1 Minutes, Once as needed, systolic blood pressure greater than 180 mmHg, dystolic blood pressure greater than 100 mmHg and heart rate greater than 60 BPM, Startingon Sat09/23/23 at 1113, For 1 dose, Recovery (only) lidocaine-epinephrine (Xylocaine W/EPI) 1 %-1:100,000 injection (CANCELED) As needed, Starting on Sat09/23/23 at 0901, Intraprocedure * 0901 (Given - Provider: Elke Adams MD - Comment: 0.25% Bupivacaine 30mls mixed with 1% Lidocaine with EPinephrine 30mls and 8.4% Sodium Bicard 6mls) meperidine PF (Demerol) injection 12.5 mg 12.5 mg, intravenous, Every 10 min PRN, shivering, Starting on Sat09/23/23 at 1113, Recovery (only) midazolam (Versed) injection 1 mg 1 mg, intravenous, Once as needed, anxiety, Starting on Sat09/23/23 at 1113, For 1 dose, Recovery (only) oxyCODONE (Roxicodone) immediate release tablet 5 mg 5 mg, oral, Every 4 hours PRN, pain mild (1-3), first line, Starting on Sat09/23/23 at 1113, Recovery (only), When able to take oral medications., If ordered PRN for pain, nurse is permitted to administer this medication for higher pain scores based on patient preference? Yes * 1159 (Given - Provider: Swati Mcgarry RN) oxygen (O2) therapy inhalation, Continuous PRN - O2/gases, other, Starting on Sat09/23/23 at 0738, Recovery (only), Device: Nasal Cannula, Rate in liters per minute: 2 LPM, Keep O2 Sat Above: 92% polymyxin B injection (CANCELED) As needed, Starting on Sat09/23/23 at 0904, Intraprocedure * 0904 (Given - Provider: Elke Adams MD - Comment: Normal Saline 1 liter mixed with Ancef 1G and Polymyxin 500,000 as irrigation.) promethazine (Phenergan) 6.25 mg in sodium chloride 0.9% 50 mL IV 6.25 mg, intravenous, Administer over 15 Minutes, Once as needed, Nausea/vomiting first line, Starting on Sat09/23/23 at 1113, For 1 dose, Recovery (only) sodium bicarbonate 4.2 % injection (CANCELED) As needed, Starting on Sat09/23/23 at 0902, Intraprocedure * 0902 (Given - Provider: Elke Adams MD - Comment: 0.25% Bupivacaine 30mls mixed with 1% Lidocaine with EPinephrine 30mls and 8.4% Sodium Bicard 6mls) sodium chloride 0.9 % irrigation solution (CANCELED) As needed, Starting on 09/23/23 at 0905, Intraprocedure * 0905 (Given - Provider: Elke Adams MD - Comment: Normal Saline 1 liter mixed with Ancef 1G and Polymyxin 500,000 as irrigation.) Medication Order/// HYDROmorphone (Dilaudid) injection 0.5 mg (COMPLETED) 0.5 mg, intravenous, Once, On 10/05/23 at 2320, For 1 dose * 2325 (Given - Provider: Gokul Lorenzo, DARSHAN) HYDROmorphone (Dilaudid) injection 0.5 mg (COMPLETED) 0.5 mg, intravenous, Once, On 10/06/23 at 0125, For 1 dose * 0203 (Given - Provider: Terri Jacobs RN) HYDROmorphone (Dilaudid) injection 0.5 mg (COMPLETED) 0.5 mg, intravenous, Once, On 10/06/23 at 0235, For 1 dose * 0306 (Given - Provider: Gokul Lorenzo, DARSHAN) Medication Order//11/2023 diazePAM (Valium) tablet 5 mg (COMPLETED) 5 mg, oral, Once, On Shira 10/31/23 at 2055, For 1 dose * 210 (Given - Provider: Juan Antonio Land RN) FLUoxetine (PROzac) capsule 60 mg 60 mg, oral, Daily, First dose on Shira 10/31/23 at 0900 * 0922 (Given - Provider: Eric Albright, RN) * 0845 (Given - Provider: Reshma Lubin RN) gadoterate meglumine (Dotarem) 0.5 mmol/mL contrast injection 20 mL (COMPLETED) 20 mL, intravenous, Once in imaging, Starting on Shira 10/31/23 at 2302, For 1 dose, Administer undiluted as rapid I.V. bolus injection * 2241 (Given - Provider: Zhane Dobbins) HYDROmorphone (Dilaudid) injection 0.5 mg (COMPLETED) 0.5 mg, intravenous, Once, On Shira 10/31/23 at 0355, For 1 dose * 0356 (Given - Provider: Mario Wright RN) hydrOXYzine HCL (Atarax) tablet 25 mg 25 mg, oral, 3 times daily, First dose on Sat10/31/23 at 0900 * 0922 (Given - Provider: Eric Albright RN) * 1524 (Given - Provider: Juan Antonio Land RN) * 2046 (Given - Provider: Juan Antonio Land RN) * 0845 (Given - Provider: Reshma Lubin RN) * 1500 (Due) * 2100 (Due) pantoprazole (ProtoNix) EC tablet 40 mg 40 mg, oral, Daily before breakfast, First dose (after last modification) on Sat10/31/23 at 2115, Donot crush, chew, or split. * 0058 (Given - Provider: Sirisha Meyer RN) * 0700 (Canceled Entry - Provider: Gladys Goodwin, RosauraD) polyethylene glycol (Glycolax, Miralax) packet 17 g 17 g, oral, Daily, First dose on Sat10/31/23 at 0900, Bowel Regimen - for prevention of constipation. * 0900 (Not Given - Provider: Eric Albright RN - Reason: Patient/family refused) * 0900 (Not Given - Provider: Reshma Lubin RN - Reason: Patient/family refused) sulfamethoxazole-trimethoprim (Bactrim DS) 800-160 mg per tablet 2 tablet 2 tablet, oral, Every 12 hours scheduled, First dose on Sat11/01/23 at 1115, For 14 days, Suspected Indication (Select all that apply): Cellulitis, Skin and Soft Tissue, Indications: Cellulitis, Skin and Soft Tissue * 1136 (Given - Provider: Reshma Lubin RN) * 2100 (Due) Medication Order//11/2023 HYDROmorphone (Dilaudid) injection 0.4 mg (CANCELED) 0.4 mg, intravenous, Every 3 hours PRN, pain breakthrough, Starting on Sat10/31/23 at 0829 * 0922 (Given - Provider: Eric Albright RN) * 1254 (Given - Provider: Eric Albright RN) * 1600 (Given - Provider: Juan Antonio Land RN) * 1908 (Given - Provider: Amberle Emery, RN) * 2201 (Given - Provider: Juan Antonio Land RN) * 0216 (Given - Provider: Sirisha Meyer, RN) * 0846 (Given - Provider: Reshma Lubin, RN) oxyCODONE (Roxicodone) immediate release tablet 5 mg 5 mg, oral, Every 4 hours PRN, pain moderate (4-6), first line, Starting on Shira 10/31/23 at 0651, If ordered PRN for pain, nurse is permitted to administer this medication for higher pain scores based on patient preference? Yes * 0709 (Given - Provider: Mario Wright RN) * 1524 (Given - Provider: Juan Antonio Land RN) * 2046 (Given - Provider: Juan Antonio Land RN) * 0058 (Given - Provider: Sirisha Meyer, DARSHAN) * 0623 (Given - Provider: Sirisha Meyer, DARSHAN) * 1137 (Given - Provider: Reshma Lubin RN) Medication Order// iohexol (OMNIPaque) 350 mg iodine/mL solution 70 mL (COMPLETED) 70 mL, intravenous, Once in imaging, Starting on 11/09/23 at 1452, For 1 dose * 1452 (Given - Provider: Adriana Reynoso, ARRT) morphine injection 4 mg (COMPLETED) 4 mg, intravenous, Once, On 11/09/23 at 1335, For 1 dose * 1403 (Given - Provider: Esvin Hicks, DARSHAN) morphine injection 4 mg (COMPLETED) 4 mg, intravenous, Once, On 11/09/23 at 1640, For 1 dose * 1650 (Given - Provider: Melissa Nava RN) ondansetron (Zofran) injection 4 mg (COMPLETED) 4 mg, intravenous, Once, On 11/09/23 at 1335, For 1 dose, When administering via IV Push, administer over 3-5 minutes. * 1403 (Given - Provider: Esvin Hicks, DARSHAN) Medication Order// HYDROmorphone (Dilaudid) injection 0.2 mg (COMPLETED) 0.2 mg, intravenous, Once, On 11/09/23 at 2145, For 1 dose * 2219 (Given - Provider: Slime Martinez RN - Comment: Time done different from scan.) oxyCODONE (Roxicodone) immediate release tablet 5 mg (COMPLETED) 5 mg, oral, Once, On Sat11/09/23 at 2330, For 1 dose, If ordered PRN for pain, nurse is permitted to administer this medication for higher pain scores based on patient preference? Yes * 2343 (Given - Provider: Slime Martinez RN) Medication Order11/16//// acetaminophen (Tylenol) tablet 650 mg 650 mg, oral, Every 6 hours scheduled, First dose on Sat11/13/23 at 1445, If ordered PRN for pain, nurse is permitted to administer this medication for higher pain scores based on patient preference?Yes * 0543 (Given - Provider: Elke Paiz RN) * 1231 (Given - Provider: Savanna Chan RN) * 1746 (Given - Provider: Savanna Chan RN) * 0039 (Not Given - Provider: Talia Bravo RN - Reason: Patient/family refused) * 0600 (Not Given - Provider: Talia Bravo RN - Reason: Patient/family refused) * 1203 (Given - Provider: Miladys Anguiano RN) * 1744 (Not Given - Provider: Miladys Anguiano RN - Reason: Patient/family refused) * 0025 (Given - Provider: Cathy Moore, DARSHAN) * 0643 (Given - Provider: Cathy Moore, DARSHAN) * 1200 (Due) * 1800 (Due) cefdinir (Omnicef) capsule 300 mg 300 mg, oral, 2 times daily, First dose (after last modification) on 11/17/23 at 0230, For 21 doses, Suspected Indication (Select all that apply): Surgical Wound Infection, Indications: Surgical Wound Infection * 0238 (Given - Provider: Elke Paiz RN) * 1746 (Given - Provider: Savanna Chan RN) * 0500 (Given - Provider: Talia Bravo RN) * 1803 (Given - Provider: Miladys Anguiano RN) * 0643 (Given - Provider: Cathy Moore, DARSHAN) * 1800 (Due - Provider: Jd Gates, PharmD) collagenase 250 unit/gram ointment Topical, Daily, First dose on Sat11/14/23 at 0900, Apply to medial back incision; see wound care orders for details * 0857 (Given - Provider: Savanna Chan RN) * 0808 (Given - Provider: Miladys Anguiano, DARSHAN) * 0836 (Given - Provider: Nyla Fowler, DARSHAN) FLUoxetine (PROzac) capsule 60 mg 60 mg, oral, Daily, First dose on Sat11/14/23 at 1145 * 0855 (Given - Provider: Savanna Chan RN) * 0805 (Given - Provider: Miladys Anguiano RN) * 0837 (Given - Provider: Nyla Fowler RN) heparin (porcine) injection 7,500 Units 7,500 Units, subcutaneous, Every 8 hours scheduled, First dose on Sat11/14/23 at 2230 * 0543 (Given - Provider: Elke Paiz RN) * 1443 (Given - Provider: Savanna Chan RN) * 2223 (Given - Provider: Talia Bravo RN) * 0451 (Given - Provider: Talia Bravo, DARSHAN) * 1414 (Not Given - Provider: Miladys Anguiano RN - Reason: Patient/family refused) * 2100 (Not Given - Provider: Cathy Moore RN - Reason: Patient/family refused) * 0600 (Not Given - Provider: Cathy Moore RN - Reason: Patient/family refused) * 1400 (Due) * 2200 (Due) pantoprazole (ProtoNix) EC tablet 20 mg 20 mg, oral, Daily before breakfast, First dose on Sat11/15/23 at 0700, Do not crush, chew, or split. * 0543 (Given - Provider: Elke Paiz RN) * 0506 (Given - Provider: Talia Bravo RN) * 0643 (Given - Provider: Cathy Moore, DARSHAN) polyethylene glycol (Glycolax, Miralax) packet 17 g 17 g, oral, Daily, First dose on Sat11/13/23 at 1445, Bowel Regimen - for prevention of constipation. * 0900 (Not Given - Provider: Savanna Chan RN - Reason: Patient/family refused) * 0900 (Not Given - Provider: Miladys Anguiano RN - Reason: Patient/family refused) * 0900 (Not Given - Provider: Nyla Fowler RN - Reason: Patient/family refused) sennosides-docusate sodium (Judy-Colace) 8.6-50 mg per tablet 2 tablet 2 tablet, oral, 2 times daily, First dose on Sat11/13/23 at 1445, Bowel Regimen - for prevention ofconstipation Hold for loose stools * 0900 (Not Given - Provider: Savanna Chan RN - Reason: Patient/family refused) * 2036 (Given - Provider: Talia Bravo, DARSHAN) * 0900 (Not Given - Provider: Miladys Anguiano RN - Reason: Patient/family refused) * 2100 (Not Given - Provider: Cathy Moore RN - Reason: Patient/family refused) * 0900 (Not Given - Provider: Nyla Fowler RN - Reason: Patient/family refused) * 2100 (Due) Medication Order11/16//// HYDROmorphone (Dilaudid) injection 0.4 mg 0.4 mg, intravenous, Every 3 hours PRN, pain breakthrough, breakthrough pain - 2nd line, use oral products first if ordered, Starting on Shira 11/14/23 at 1422, If oral and IV narcotics ordered, use oral first and only use IV if oral is ineffective or cannot take oral. Do NOT give oral and IV within one hour of each other unless specifically ordered. * 0117 (Given - Provider: Elke Paiz, DARSHAN) * 0537 (Given - Provider: Elke Paiz, RN) * 1008 (Given - Provider: Savanna hCan, RN) * 1350 (Given - Provider: Savanna Chan RN) * 1746 (Given - Provider: Savanna Chan RN) * 2222 (Given - Provider: Talia Bravo, RN) * 0451 (Given - Provider: Talia Bravo, RN) * 0933 (Given - Provider: Miladys Anguiano RN) * 1414 (Given - Provider: Miladys Anguiano, DARSHAN) * 1803 (Given - Provider: Miladys Anguiano, RN) * 2127 (Given - Provider: Cathy Moore, DARSHAN) * 0212 (Given - Provider: Cathy Moore, RN) * 0643 (Given - Provider: Cathy Moore, RN) hydrOXYzine HCL (Atarax) tablet 25 mg 25 mg, oral, 3 times daily PRN, anxiety, Starting on Sat11/14/23 at 1120 * 1451 (Given - Provider: Savanna Chan RN) melatonin tablet 6 mg 6 mg, oral, Nightly PRN, sleep, Starting on Sat11/13/23 at 1444 naloxone (Narcan) injection 0.2 mg 0.2 mg, intravenous, Every 5 min PRN, respiratory depression, Starting on Sat11/13/23 at 1443, If respiratory rate is less than 8 breaths/minute or patient is difficult to arouse stop any narcotics and contact physician. Administer slow IV push. Repeat as ordered until patient's respiratory rate isgreater than 12 breaths/minute. ondansetron (Zofran) injection 4 mg(Linked Group 1) 4 mg, intravenous, Every 8 hours PRN, nausea/vomiting, first line, Starting on Sat11/13/23 at 1444,1st Line. Give IV if patient is unable to take orally. If inadequate response within 60 minutes, proceed to next-line agent for same PRN reason or contact provider if no further options ordered. Whenadministering via IV Push, administer over 3-5 minutes. ondansetron (Zofran) tablet 4 mg(Linked Group 1) 4 mg, oral, Every 8 hours PRN, nausea/vomiting, first line, Starting on Sat11/13/23 at 1444, 1st Line. Use oral route first, if possible. If inadequate response within 60 minutes, proceed to next-line agent for same PRN reason or contact provider if no further options ordered. oxyCODONE (Roxicodone) immediate release tablet 10 mg 10 mg, oral, Every 4 hours PRN, pain severe (7-10), first line, Starting on Sat11/13/23 at 1444, May be given with acetaminophen tablet., If ordered PRN for pain, nurse is permitted to administer this medication for higher pain scores based on patient preference? Yes * 0431 (Given - Provider: Elke Paiz, DARSHAN) * 0856 (Given - Provider: Savanna Chan, RN) * 1451 (Given - Provider: Savanna Chan, RN) * 2038 (Given - Provider: Talia Bravo, RN) * 0230 (Given - Provider: Talia Bravo, RN) * 0804 (Given - Provider: Miladys Anguiano, DARSHAN) * 1203 (Given - Provider: Miladys Anguiano, DARSHAN) * 1602 (Given - Provider: Miladys Anguiano, DARSHAN) * 2019 (Given - Provider: Cathy Moore, DARSHAN) * 0025 (Given - Provider: Cathy Moore, RN) * 0449 (Given - Provider: Cathy Moore, DARSHAN) * 0837 (Given - Provider: Nyla Fowler RN) oxyCODONE (Roxicodone) immediate release tablet 5 mg 5 mg, oral, Every 4 hours PRN, pain moderate (4-6), first line, Starting on Sat11/13/23 at 1443, May be given with acetaminophen tablet., If ordered PRN for pain, nurse is permitted to administer this medication for higher pain scores based on patient preference? Yes Order Group 1: ondansetron (Zofran) tablet 4 mgJump to med 4 mg, oral, Every 8 hours PRN, nausea/vomiting, first line, Starting on Sat11/13/23 at 1444, 1st Line. Use oral route first, if possible. If inadequate response within 60 minutes, proceed to next-line agent for same PRN reason or contact provider if no further options ordered. Or ondansetron (Zofran) injection 4 mgJump to med 4 mg, intravenous, Every 8 hours PRN, nausea/vomiting, first line, Starting on Sat11/13/23 at 1444,1st Line. Give IV if patient is unable to take orally. If inadequate response within 60 minutes, proceed to next-line agent for same PRN reason or contact provider if no further options ordered. Whenadministering via IV Push, administer over 3-5 minutes. Medication Order03/07/20230326// morphine injection 4 mg (COMPLETED) 4 mg, subcutaneous, Once, On Sat03/09/24 at 1920, For 1 dose * 1939 (Given - Provider: Jayna August RN) ondansetron ODT (Zofran-ODT) disintegrating tablet 8 mg (COMPLETED) 8 mg, oral, Once, On Sat03/09/24 at 1920, For 1 dose * 1940 (Given - Provider: Jayna August RN) orphenadrine (Norflex) injection 60 mg (COMPLETED) 60 mg, intramuscular, Once, On Sat03/09/24 at 1920, For 1 dose * 1940 (Given - Provider: Jayna August RN) oxyCODONE (Roxicodone) immediate release tablet 10 mg (COMPLETED) 10 mg, oral, Once, On Sat03/09/24 at 214, For 1 dose, If ordered PRN for pain, nurse is permittedto administer this medication for higher pain scores based on patient preference? Yes * 2142 (Given - Provider: Jayna August RN) Medication Order// gadoterate meglumine (Dotarem) 0.5 mmol/mL contrast injection 20 mL (COMPLETED) 20 mL, intravenous, Once in imaging, Starting on Sat12/06/23 at 2150, For 1 dose * 2129 (Given - Provider: Corbin Peña) HYDROmorphone (Dilaudid) injection 1 mg (COMPLETED) 1 mg, intravenous, Once, On Sat12/06/23 at 1950, For 1 dose * 2010 (Given - Provider: Mario Wright RN) HYDROmorphone (Dilaudid) injection 1 mg (COMPLETED) 1 mg, intravenous, Once, On 12/07/23 at 0015, For 1 dose * 38 (Given - Provider: Mario Wright RN) ketorolac (Toradol) injection 30 mg (COMPLETED) 30 mg, intravenous, Once, On Sat12/07/23 at 0205, For 1 dose * 021 (Given - Provider: Mario Wright RN) LORazepam (Ativan) injection 1 mg (COMPLETED) 1 mg, intravenous, Administer over 5 Minutes, Once, On Sat12/06/23 at 1935, For 1 dose * 2010 (Given - Provider: Mario Wright RN) morphine injection 4 mg (COMPLETED) 4 mg, intravenous, Once, On Sat12/06/23 at 1605, For 1 dose * 170 (Given - Provider: Valencia Godinez, DARSHAN) ondansetron (Zofran) injection 4 mg (COMPLETED) 4 mg, intravenous, Once, On 12/07/23 at 0105, For 1 dose, When administering via IV Push, administer over 3-5 minutes. * 0119 (Given - Provider: Mario Wright RN) ondansetron ODT (Zofran-ODT) disintegrating tablet 4 mg (COMPLETED) 4 mg, oral, Once, On Sat12/06/23 at 1605, For 1 dose * 170 (Given - Provider: Valencia Godinez, DARSHAN) tiZANidine (Zanaflex) tablet 4 mg (COMPLETED) 4 mg, oral, Once, On 12/07/23 at 0205, For 1 dose * 0215 (Given - Provider: Mario Wright RN) Medication Order12/04//// cyclobenzaprine (Flexeril) tablet 5 mg (COMPLETED) 5 mg, oral, Once, On 12/07/23 at 1535, For 1 dose * 162 (Given - Provider: Jean Tariq RN) HYDROmorphone (Dilaudid) injection 0.5 mg (COMPLETED) 0.5 mg, intravenous, Once, On 12/07/23 at 1535, For 1 dose * 162 (Given - Provider: Jean Tariq RN) HYDROmorphone (Dilaudid) injection 0.5 mg (COMPLETED) 0.5 mg, intravenous, Once, On 12/07/23 at 1810, For 1 dose * 180 (Given - Provider: Jean Tariq RN) HYDROmorphone (Dilaudid) injection 1 mg (COMPLETED) 1 mg, intravenous, Once, On 12/07/23 at 2010, For 1 dose * 2011 (Given - Provider: Jean Tariq RN) iohexol (OMNIPaque) 350 mg iodine/mL solution 80 mL (COMPLETED) 80 mL, intravenous, Once in imaging, Starting on 12/07/23 at 1718, For 1 dose * 1731 (Given - Provider: Carolina Wahl) Medication Order/// HYDROcodone-acetaminophen ([place]) 5-325 mg per tablet 1 tablet (COMPLETED) 1 tablet, oral, Once, On Sat12/09/23 at 1425, For 1 dose, If ordered PRN for pain, nurse is permitted to administer this medication for higher pain scores based on patient preference? Yes * 1438 (Given - Provider: Rose Marie Hernandez, DARSHAN) ketorolac (Toradol) injection 15 mg (COMPLETED) 15 mg, intramuscular, Once, On Sat12/09/23 at 1600, For 1 dose * 1604 (Given - Provider: Rose Marie Hernandez RN) Medication Order// HYDROmorphone (Dilaudid) injection 0.5 mg (COMPLETED) 0.5 mg, intravenous, Once, On Sat12/10/23 at 0145, For 1 dose * 0201 (Given - Provider: Maria Alejandra Kilgore RN) oxyCODONE (Roxicodone) immediate release tablet 5 mg (COMPLETED) 5 mg, oral, Once, On Sat12/10/23 at 0510, For 1 dose, If ordered PRN for pain, nurse is permitted to administer this medication for higher pain scores based on patient preference? Yes * 0524 (Given - Provider: Laura Bradley LPN) oxyCODONE-acetaminophen (Percocet) 5-325 mg per tablet 1 tablet (COMPLETED) 1 tablet, oral, Once, On Sat12/10/23 at 0310, For 1 dose, If ordered PRN for pain, nurse is permitted to administer this medication for higher pain scores based on patient preference? Yes * 0348 (Given - Provider: Laura Bradley LPN) Medication Order/// HYDROmorphone (Dilaudid) injection 1 mg (COMPLETED) 1 mg, subcutaneous, Once, On Sat12/11/23 at 1410, For 1 dose * 1436 (Given - Provider: Ree Steven RN) Medication Order/21/ HYDROmorphone (Dilaudid) injection 0.5 mg (COMPLETED) 0.5 mg, intravenous, Once, On Sat12/15/23 at 1910, For 1 dose * 1915 (Given - Provider: Slime Miranda RN) HYDROmorphone (Dilaudid) injection 0.5 mg (COMPLETED) 0.5 mg, intravenous, Once, On Sat12/15/23 at 2145, For 1 dose * 2152 (Given - Provider: Slime Miranda, DARSHAN) HYDROmorphone (Dilaudid) injection 1 mg (COMPLETED) 1 mg, intravenous, Once, On Sat12/15/23 at 2030, For 1 dose * 2034 (Given - Provider: Slime Miranda RN) iohexol (OMNIPaque) 350 mg iodine/mL solution 75 mL (COMPLETED) 75 mL, intravenous, Once in imaging, Starting on Sat12/15/23 at 1937, For 1 dose * 1944 (Given - Provider: Chirag uW) lactated Ringer's bolus 1,000 mL (COMPLETED) 1,000 mL, intravenous, at 999 mL/hr, Administer over 1 Hours, Once, On Sat12/15/23 at 1910, For 1 dose * 1915 (New Bag - Provider: Slime Miranda RN) * 2153 (Stopped - Provider: Slime Miranda, DARSHAN) ondansetron (Zofran) injection 4 mg (COMPLETED) 4 mg, intravenous, Once, On Sat12/15/23 at 1910, For 1 dose, When administering via IV Push, administer over 3-5 minutes. * 1914 (Given - Provider: Slime Miranda RN) Medication Order12/10/// diphenhydrAMINE (Sominex) tablet 25 mg (COMPLETED) 25 mg, oral, Once, On Sat12/13/23 at 2119, For 1 dose * 2131 (Given - Provider: Piero Lang LPN) oxyCODONE-acetaminophen (Percocet) 5-325 mg per tablet 1 tablet (COMPLETED) 1 tablet, oral, Once, On Sat12/13/23 at 2119, For 1 dose, If ordered PRN for pain, nurse is permitted to administer this medication for higher pain scores based on patient preference? Yes * 2131 (Given - Provider: Piero Lang LPN) Medication Order12/16/// acetaminophen (Tylenol) tablet 975 mg (COMPLETED) 975 mg, oral, Once, On Shira 12/19/23 at 0040, For 1 dose, If ordered PRN for pain, nurse is permittedto administer this medication for higher pain scores based on patient preference? Yes * 44 (Given - Provider: Abiola Barcenas RN) gadoterate meglumine (Dotarem) 0.5 mmol/mL contrast injection 20 mL (COMPLETED) 20 mL, intravenous, Once in imaging, Starting on Sat12/18/23 at 2119, For 1 dose, Administer undiluted as rapid I.V. bolus injection * 2021 (Given - Provider: Chelsea Hui) HYDROmorphone (Dilaudid) injection 0.5 mg (COMPLETED) 0.5 mg, intravenous, Once, On Sat12/18/23 at 1635, For 1 dose * 164 (Given - Provider: Carol Hewitt RN) HYDROmorphone (Dilaudid) injection 0.5 mg (COMPLETED) 0.5 mg, intravenous, Once, On Sat12/18/23 at 2100, For 1 dose * 2106 (Given - Provider: Carol Hewitt RN) HYDROmorphone (Dilaudid) injection 1 mg (COMPLETED) 1 mg, intravenous, Once, On Sat12/18/23 at 2245, For 1 dose * 224 (Given - Provider: Caorl Hewitt RN) HYDROmorphone (Dilaudid) injection 1 mg (COMPLETED) 1 mg, intravenous, Once, On Shira 12/19/23 at 0745, For 1 dose * 0751 (Given - Provider: Kristin Paris RN) ketorolac (Toradol) injection 15 mg (COMPLETED) 15 mg, intravenous, Once, On Shira 12/19/23 at 0040, For 1 dose * 0044 (Given - Provider: Abiola Barcenas RN) lidocaine 4 % patch 1 patch 1 patch, transdermal, Administer over 12 Hours, Once, On Shira 12/19/23 at 0035, For 1 dose, Apply to back. Patch will remain on for 12 hours, then removed for [address] patch directly overany surgical incisions or wounds. * 0045 (Medication Applied - Provider: Abiola Barcenas RN - Comment: Lower back) * 1245 (Due: Medication Removed - Provider: Abiola Barcenas RN) LORazepam (Ativan) injection 1 mg (COMPLETED) 1 mg, intravenous, Administer over 5 Minutes, Once, On Sat12/18/23 at 1900, For 1 dose * 190 (Given - Provider: Carol Hewitt RN) methocarbamol (Robaxin) injection 1,000 mg (COMPLETED) 1,000 mg, intravenous, Administer over 5 Minutes, Once, On Sat12/18/23 at 2245, For 1 dose * 2247 (Given - Provider: Carol Hewitt RN) oxyCODONE (Roxicodone) immediate release tablet 5 mg (COMPLETED) 5 mg, oral, Once, On Sat12/18/23 at 1555, For 1 dose, If ordered PRN for pain, nurse is permitted to administer this medication for higher pain scores based on patient preference? Yes * 155 (Given - Provider: Carol Hewitt RN) oxyCODONE-acetaminophen (Percocet) 5-325 mg per tablet 1 tablet (COMPLETED) 1 tablet, oral, Once, On Sat12/18/23 at 1900, For 1 dose, If ordered PRN for pain, nurse is permitted to administer this medication for higher pain scores based on patient preference? Yes * 1901 (Given - Provider: Carol Hewitt RN) Medication Order12/18//// oxyCODONE-acetaminophen (Percocet) 5-325 mg per tablet 1 tablet (COMPLETED) 1 tablet, oral, Once, On Sat12/21/23 at 2145, For 1 dose, If ordered PRN for pain, nurse is permitted to administer this medication for higher pain scores based on patient preference? Yes * 2143 (Given - Provider: Kassandra Sher RN) Medication Order03/17/20230326// lidocaine 4 % patch 1 patch 1 patch, transdermal, Administer over 12 Hours, Once, On Shira 03/19/24 at 2030, For 1 dose, Apply tolow back. Patch will remain on for 12 hours, then removed for [address] patch directlyover any surgical incisions or wounds. * 2030 (Medication Applied - Provider: Coty Diego LPN - Comment: back) oxyCODONE (Roxicodone) immediate release tablet 5 mg (COMPLETED) 5 mg, oral, Once, On Shira 03/19/24 at 2030, For 1 dose, If ordered PRN for pain, nurse is permitted to administer this medication for higher pain scores based on patient preference? Yes, Indications: pain * 2030 (Given - Provider: Coty Diego LPN) Medication Order// ketorolac (Toradol) injection 15 mg 15 mg, intramuscular, Once, On Shira 03/26/24 at 1750, For 1 dose * 1810 (Not Given - Provider: Piero Lang LPN - Reason: Patient not available - Comment: patient left) Medication Order501// ketorolac (Toradol) injection 30 mg (COMPLETED) 30 mg, intravenous, Once, On 03/28/24 at 0055, For 1 dose * 0147 (Given - Provider: Mana Luis RN) lidocaine 4 % patch 1 patch 1 patch, transdermal, Administer over 12 Hours, Once, On 03/28/24 at 0055, For 1 dose, Apply to left back. Patch will remain on for 12 hours, then removed for [address] patch directly over any surgical incisions or wounds. * 0147 (Medication Applied - Provider: Mana Luis RN - Comment: lower back left) * 1347 (Due: Medication Removed - Provider: Mana Luis RN) methylPREDNISolone sod succinate (SOLU-Medrol) injection 125 mg (COMPLETED) 125 mg, intravenous, Once, On 03/28/24 at 0345, For 1 dose * 0344 (Given - Provider: Mana Luis RN) orphenadrine (Norflex) injection 60 mg (COMPLETED) 60 mg, intravenous, Once, On Sat03/28/24 at 0055, For 1 dose * 0146 (Given - Provider: Mana Luis RN) Medication Order HYDROmorphone (Dilaudid) injection 0.5 mg (COMPLETED) 0.5 mg, intravenous, Once, On Shira 04/23/24 at 2330, For 1 dose * 2340 (Given - Provider: Fifi Stuart RN) HYDROmorphone (Dilaudid) injection 0.5 mg (COMPLETED) 0.5 mg, intravenous, Once, On Sat04/24/24 at 0135, For 1 dose * 0139 (Given - Provider: Fifi Stuart RN) HYDROmorphone (Dilaudid) injection 0.5 mg (COMPLETED) 0.5 mg, intravenous, Once, On Sat04/24/24 at 0345, For 1 dose * 0350 (Given - Provider: Fifi Stuart RN) ketorolac (Toradol) injection 15 mg (COMPLETED) 15 mg, intramuscular, Once, On Shira 04/23/24 at 2230, For 1 dose * 2247 (Given - Provider: Fifi Stuart RN) lidocaine 4 % patch 1 patch 1 patch, transdermal, Administer over 12 Hours, Every 24 hours, First dose on Sat04/24/24 at 0345, Apply to back. Patch will remain on for 12 hours, then removed for [address] patch directly over any surgical incisions or wounds. * 0350 (Medication Applied - Provider: Fifi Stuart RN - Comment: back) * 1550 (Due: Medication Removed - Provider: Fifi Stuart RN) LORazepam (Ativan) tablet 2 mg (COMPLETED) 2 mg, oral, Once, On Shira 04/23/24 at 2330, For 1 dose * 2337 (Given - Provider: Fifi Stuart RN) methocarbamol (Robaxin) injection 1,000 mg (COMPLETED) 1,000 mg, intravenous, Administer over 5 Minutes, Once, On Shira 04/23/24 at 2230, For 1 dose * 2247 (Given - Provider: Fifi Stuart RN) Medication Order50/10/2024 bisacodyl (Dulcolax) suppository 10 mg 10 mg, rectal, Once, On Sat05/02/24 at 1530, For 1 dose * 1539 (Not Given - Provider: Carissa Luna RN - Reason: Patient/family refused) cyclobenzaprine (Flexeril) tablet 10 mg 10 mg, oral, 3 times daily, First dose on Sat05/01/24 at 1500 * 1605 (Given - Provider: Abby Maya RN) * 2237 (Given - Provider: Joshua Valencia RN) * 0934 (Given - Provider: Carissa Luna RN) * 1518 (Given - Provider: Carissa Luna RN) * 2100 (Due) enoxaparin (Lovenox) syringe 40 mg 40 mg, subcutaneous, Daily, First dose on Sat05/01/24 at 1230 * 1343 (Given - Provider: Brock Bentley RN) * 1518 (Not Given - Provider: Carissa Luna RN - Reason: Patient/family refused) HYDROmorphone (Dilaudid) injection 0.5 mg (COMPLETED) 0.5 mg, intravenous, Once, On Sat05/01/24 at 0340, For 1 dose * 0342 (Given - Provider: Gini Saunders RN) HYDROmorphone (Dilaudid) injection 0.5 mg (COMPLETED) 0.5 mg, intravenous, Once, On Sat05/01/24 at 0525, For 1 dose * 0529 (Given - Provider: Gini Saunders RN) HYDROmorphone (Dilaudid) injection 0.5 mg (COMPLETED) 0.5 mg, intravenous, Once, On Sat05/01/24 at 1030, For 1 dose * 1138 (Given - Provider: Brock Bentley RN) ketorolac (Toradol) injection 30 mg 30 mg, intravenous, Every 6 hours, First dose on Sat05/01/24 at 1240, For 5 days * 1343 (Given - Provider: Brock Bentley RN) * 2015 (Given - Provider: Joshua Valencia RN) * 0300 (Given - Provider: Joshua Valencia RN) * 0934 (Given - Provider: Carissa Luna RN - Comment: off schedule because given at 0300) * 1524 (Given - Provider: Carissa Luna RN) * 2000 (Due - Provider: Tamela Hester, PharmD) lidocaine 4 % patch 1 patch (CANCELED) 1 patch, transdermal, Administer over 12 Hours, Once, On Sat05/01/24 at 0415, For 1 dose, Apply to back. Patch will remain on for 12 hours, then removed for [address] patch directly over any surgical incisions or wounds. * 0430 (Medication Applied - Provider: Gini Saundesr RN) * 1339 (Medication Removed - Provider: Brock Bentley RN - Comment: Time automatically adjusted from order being discontinued) lidocaine 4 % patch 1 patch 1 patch, transdermal, Administer over 12 Hours, Daily, First dose on Sat05/01/24 at 1225, Lower back * 1343 (Medication Applied - Provider: Brock Bentley RN - Comment: Back) * 0106 (Medication Removed - Provider: Joshua Valencia RN) * 1518 (Not Given - Provider: Carissa Luna RN - Reason: Patient/family refused) methocarbamol (Robaxin) injection 1,000 mg (COMPLETED) 1,000 mg, intravenous, Administer over 5 Minutes, Once, On Sat05/01/24 at 0415, For 1 dose * 0430 (Given - Provider: Gini Saunders RN) oxyCODONE (Roxicodone) immediate release tablet 5 mg (COMPLETED) 5 mg, oral, Once, On Sat05/01/24 at 0820, For 1 dose, If ordered PRN for pain, nurse is permitted toadminister this medication for higher pain scores based on patient preference? Yes * 0840 (Given - Provider: Elke Carolina RN) pantoprazole (ProtoNix) EC tablet 40 mg 40 mg, oral, Daily before breakfast, First dose on Sat05/02/24 at 0700, Do not crush, chew, or split. * 0629 (Given - Provider: Joshua Valencia RN) Medication Order HYDROmorphone (Dilaudid) injection 0.5 mg (CANCELED) 0.5 mg, intravenous, Every 3 hours PRN, pain breakthrough, Starting on Sat05/01/24 at 1239 * 2014 (Given - Provider: Joshua Valencia RN) * 06 (Given - Provider: Joshua Valencia RN) oxyCODONE (Roxicodone) immediate release tablet 10 mg 10 mg, oral, Every 6 hours PRN, pain severe (7-10), first line, Starting on Sat05/01/24 at 1238, If ordered PRN for pain, nurse is permitted to administer this medication for higher pain scores based on patient preference? Yes * 1739 (Given - Provider: Abby Maya RN) * 0300 (Given - Provider: Joshua Valencia RN) * 0934 (Given - Provider: Carissa Luna RN) * 1536 (Given - Provider: Carissa Luna RN) oxyCODONE (Roxicodone) immediate release tablet 5 mg 5 mg, oral, Every 4 hours PRN, pain moderate (4-6), first line, Starting on Sat05/01/24 at 1238, If ordered PRN for pain, nurse is permitted to administer this medication for higher pain scores based on patient preference? Yes polyethylene glycol (Glycolax, Miralax) packet 17 g 17 g, oral, 3 times daily PRN, constipation, Starting on Sat05/02/24 at 1515 Medication Order502/502/ HYDROmorphone (Dilaudid) injection 0.5 mg (COMPLETED) 0.5 mg, intravenous, Once, On Shira 05/14/24 at 2130, For 1 dose * 213 (Given - Provider: Mana Luis, DARSHAN) HYDROmorphone (Dilaudid) injection 1 mg (COMPLETED) 1 mg, intravenous, Once, On Shira 05/14/24 at 1945, For 1 dose * 1956 (Given - Provider: Mana Luis, DARSHAN) methocarbamol (Robaxin) injection 1,000 mg (COMPLETED) 1,000 mg, intravenous, Administer over 5 Minutes, Once, On Shira 05/14/24 at 1640, For 1 dose * 1704 (Given - Provider: Keya Ascencio RN) morphine injection 4 mg (COMPLETED) 4 mg, intravenous, Once, On Shira 05/14/24 at 1640, For 1 dose * 170 (Given - Provider: Keya Ascencio RN) ondansetron (Zofran) injection 4 mg (COMPLETED) 4 mg, intravenous, Once, On Shira 05/14/24 at 1640, For 1 dose, When administering via IV Push, administer over 3-5 minutes. * 1703 (Given - Provider: Keya Ascencio RN) Medication Order05/15//// cyclobenzaprine (Flexeril) tablet 10 mg 10 mg, oral, 3 times daily, First dose (after last modification) on 05/16/24 at 1300 * 1300 (Given - Provider: Iveth Santana RN) * 2103 (Given - Provider: Christian Scales RN) * 0856 (Given - Provider: Taylor Marie RN) * 1500 (Due) * 2100 (Due) dexAMETHasone (Decadron) tablet 6 mg (CANCELED) 6 mg, oral, Daily, First dose on 05/16/24 at 0900 * 0827 (Given - Provider: Iveth Santana RN) DULoxetine (Cymbalta) DR capsule 20 mg 20 mg, oral, Nightly, First dose (after last modification) on 05/16/24 at 2100, Do not crush or chew. * 2109 (Not Given - Provider: Christian Scales RN - Reason: Medication not available) * 2100 (Due) enoxaparin (Lovenox) syringe 40 mg 40 mg, subcutaneous, Every 12 hours scheduled, First dose on 05/16/24 at 0900 * 0844 (Not Given - Provider: Iveth Santana RN - Reason: Patient/family refused) * 210 (Given - Provider: Christian Scales RN) * 0856 (Not Given - Provider: Taylor Marie RN - Reason: Patient/family refused) * 2100 (Due) gadoterate meglumine (Dotarem) 0.5 mmol/mL contrast injection 20 mL (COMPLETED) 20 mL, intravenous, Once in imaging, Starting on 05/16/24 at 0124, For 1 dose, Administer undiluted as rapid I.V. bolus injection * 0045 (Given - Provider: Chelsea Hui) HYDROmorphone (Dilaudid) injection 0.5 mg (COMPLETED) 0.5 mg, intravenous, Once, On 05/16/24 at 0125, For 1 dose * 0129 (Given - Provider: Marie Osorio, DARSHAN) HYDROmorphone (Dilaudid) injection 1 mg (COMPLETED) 1 mg, intravenous, Once, On Sat05/15/24 at 1950, For 1 dose * 204 (Given - Provider: Emma Rogers RN) HYDROmorphone (Dilaudid) injection 1 mg (COMPLETED) 1 mg, intravenous, Once, On Sat05/15/24 at 2250, For 1 dose * 225 (Given - Provider: Marie Osorio, DARSHAN) HYDROmorphone (Dilaudid) injection 1 mg (COMPLETED) 1 mg, intravenous, Once, On 05/16/24 at 0310, For 1 dose * 0316 (Given - Provider: Dory Sauer RN) ibuprofen tablet 800 mg 800 mg, oral, Every 8 hours, First dose (after last modification) on 05/16/24 at 0505, May administer with food to reduce GI upset. * 0511 (Given - Provider: Dory Sauer RN) * 1300 (Given - Provider: Iveth Santana RN) * 2104 (Given - Provider: Christian Scales, DARSHAN) * 0427 (Given - Provider: Christian Scales, DARSHAN) * 1305 (Due) * 2105 (Due) ketorolac (Toradol) injection 15 mg (COMPLETED) 15 mg, intravenous, Once, On 05/16/24 at 0125, For 1 dose * 0130 (Given - Provider: Marie Osorio, DARSHAN) lidocaine 4 % patch 1 patch 1 patch, transdermal, Administer over 12 Hours, Daily, First dose on 05/16/24 at 0900 * 0826 (Medication Applied - Provider: Iveth Santana RN) * 2107 (Medication Removed - Provider: Christian Scales RN) * 0856 (Not Given - Provider: Taylor Marie RN - Reason: Patient/family refused) LORazepam (Ativan) tablet 1 mg (COMPLETED) 1 mg, oral, Once, On Sat05/15/24 at 2330, For 1 dose * 2337 (Given - Provider: Marie Osorio RN) methocarbamol (Robaxin) injection 500 mg (COMPLETED) 500 mg, intravenous, Administer over 5 Minutes, Once, On 05/16/24 at 0125, For 1 dose * 0130 (Given - Provider: Marie Osorio, DARSHAN) methylPREDNISolone (Medrol) tablet 12 mg(Linked Group 1) 12 mg, oral, Once, On Sat05/19/24 at 1005, For 1 dose methylPREDNISolone (Medrol) tablet 16 mg(Linked Group 1) 16 mg, oral, Once, On Sat05/18/24 at 1005, For 1 dose methylPREDNISolone (Medrol) tablet 20 mg (COMPLETED)(Linked Group 1) 20 mg, oral, Once, On Sat05/17/24 at 1005, For 1 dose * 1032 (Given - Provider: Taylor Marie RN) methylPREDNISolone (Medrol) tablet 24 mg (COMPLETED)(Linked Group 1) 24 mg, oral, Once, On 05/16/24 at 1115, For 1 dose, Give all Day-1 doses (6 tablets) at one timeto start pack * 1127 (Given - Provider: Iveth Santana RN) methylPREDNISolone (Medrol) tablet 4 mg(Linked Group 1) 4 mg, oral, Once, On Shira 05/21/24 at 1005, For 1 dose methylPREDNISolone (Medrol) tablet 8 mg(Linked Group 1) 8 mg, oral, Once, On Sat05/20/24 at 1005, For 1 dose pantoprazole (ProtoNix) EC tablet 40 mg 40 mg, oral, Daily before breakfast, First dose on 05/16/24 at 0700, Do not crush, chew, or split. * 0604 (Given - Provider: Dory Sauer RN) * 0856 (Given - Provider: Taylor Marie RN) polyethylene glycol (Glycolax, Miralax) packet 17 g 17 g, oral, Daily, First dose on 05/16/24 at 0900, Bowel Regimen - for prevention of constipation. * 0845 (Not Given - Provider: Iveth Santana RN - Reason: Patient/family refused) * 0855 (Not Given - Provider: Taylor Marie RN - Reason: Patient/family refused) Medication Order502/ albuterol 90 mcg/actuation inhaler 2 puff 2 puff, inhalation, Every 6 hours PRN, wheezing, shortness of breath, Starting on 05/16/24 at 0501, Shake well before use. cyclobenzaprine (Flexeril) tablet 10 mg (CANCELED) 10 mg, oral, 3 times daily PRN, muscle spasms, Starting on 05/16/24 at 0501 * 0511 (Given - Provider: Dory Sauer, DARSHAN) HYDROmorphone (Dilaudid) injection 0.2 mg (CANCELED) 0.2 mg, intravenous, Every 3 hours PRN, pain breakthrough, Starting on 05/16/24 at 0503 * 0512 (Given - Provider: Dory Sauer, DARSHAN) HYDROmorphone (Dilaudid) injection 0.2 mg (CANCELED) 0.2 mg, intravenous, Every 6 hours PRN, pain breakthrough, Starting on 05/16/24 at 0654 * 1134 (Given - Provider: Iveth Santana RN) hydrOXYzine HCL (Atarax) tablet 25 mg 25 mg, oral, 3 times daily PRN, anxiety, Starting on 05/16/24 at 0501 * 2104 (Given - Provider: Christian Scales, DARSHAN) oxyCODONE (Roxicodone) immediate release tablet 10 mg 10 mg, oral, Every 6 hours PRN, pain severe (7-10), first line, Starting on 05/16/24 at 0502 * 0827 (Given - Provider: Iveth Santana RN) * 1437 (Given - Provider: Iveth Santana RN) * 2104 (Given - Provider: Christian Scales, DARSHAN) * 0427 (Given - Provider: Christian Scales RN) * 1033 (Given - Provider: Taylor Marie RN) oxyCODONE (Roxicodone) immediate release tablet 5 mg 5 mg, oral, Every 4 hours PRN, pain breakthrough, Starting on 05/16/24 at 1334, If ordered PRN for pain, nurse is permitted to administer this medication for higher pain scores based on patient preference? Yes Order Group 1: methylPREDNISolone (Medrol) tablet 24 mg (COMPLETED)Jump to med 24 mg, oral, Once, On 05/16/24 at 1115, For 1 dose, Give all Day-1 doses (6 tablets) at one timeto start pack Followed by methylPREDNISolone (Medrol) tablet 20 mg (COMPLETED)Jump to med 20 mg, oral, Once, On Sat05/17/24 at 1005, For 1 dose Followed by methylPREDNISolone (Medrol) tablet 16 mgJump to med 16 mg, oral, Once, On Sat05/18/24 at 1005, For 1 dose Followed by methylPREDNISolone (Medrol) tablet 12 mgJump to med 12 mg, oral, Once, On Sat05/19/24 at 1005, For 1 dose Followed by methylPREDNISolone (Medrol) tablet 8 mgJump to med 8 mg, oral, Once, On Sat05/20/24 at 1005, For 1 dose Followed by methylPREDNISolone (Medrol) tablet 4 mgJump to med 4 mg, oral, Once, On Shira 05/21/24 at 1005, For 1 dose Medication Order//07/2024 cyclobenzaprine (Flexeril) tablet 10 mg 10 mg, oral, Once, On Sat05/27/24 at 2024, For 1 dose * 2035 (Not Given - Provider: Marie Osorio RN - Reason: Patient/family refused) ketorolac (Toradol) injection 30 mg 30 mg, intramuscular, Once, On Sat05/27/24 at 2024, For 1 dose * 2035 (Not Given - Provider: Marie Osorio RN - Reason: Patient/family refused) Medication Order// ketorolac (TORADOL) injection 30 mg (COMPLETED) 30 mg, Intramuscular, NOW, 1 dose, On 06/06/24 at 1225 * 1229 (Given - Provider: Susu Pisano, DARSHAN) morphine injection syringe 6 mg (COMPLETED) 6 mg, Intramuscular, NOW, 1 dose, On 06/06/24 at 1235 * 1229 (Given - Provider: Susu Pisano, DARSHAN) ondansetron (ZOFRAN ODT) RAPID DISSOLVING tablet 4 mg (COMPLETED) 4 mg, Oral, NOW, 1 dose, On Sat06/06/24 at 1225 * 1229 (Given - Provider: Susu Pisano, DARSHAN) Medication Order DULoxetine (Cymbalta) DR capsule 20 mg 20 mg, oral, Nightly, First dose on Sat06/12/24 at 0125, Do not crush or chew. * 0145 (Not Given - Provider: Yue Mcgarry RN - Reason: Other) * 2030 (Given - Provider: Jayna Perry RN) * 2019 (Given - Provider: Jayna Perry RN) * 2100 (Due) enoxaparin (Lovenox) syringe 40 mg 40 mg, subcutaneous, Every 12 hours scheduled, First dose on Sat06/12/24 at 0900 * 0852 (Given - Provider: Raquel Gabriel RN) * 2030 (Given - Provider: Jayna Perry RN) * 0907 (Given - Provider: Shirley Carvajal RN) * 2019 (Given - Provider: Jayna Perry RN) * 0840 (Given - Provider: Shirley Carvajal RN) * 2100 (Due) HYDROmorphone (Dilaudid) injection 0.2 mg (COMPLETED) 0.2 mg, intravenous, Once, On Sat06/12/24 at 0050, For 1 dose * 0059 (Given - Provider: Fifi Stuart RN) hydrOXYzine HCL (Atarax) tablet 25 mg (COMPLETED) 25 mg, oral, Once, On Sat06/13/24 at 0500, For 1 dose * 0543 (Given - Provider: Jayna Perry RN) methocarbamol (Robaxin) tablet 500 mg (COMPLETED) 500 mg, oral, Every 8 hours scheduled, First dose (after last modification) on Sat06/12/24 at 0600,For 2 days * 0654 (Given - Provider: Meri Molina RN) * 1307 (Given - Provider: Raquel Gabriel, DARSHAN) * 2159 (Given - Provider: Jayna Perry RN) * 0543 (Given - Provider: Jayna Perry RN) * 1521 (Given - Provider: Shirley Carvajal RN) * 2144 (Given - Provider: Jayna Perry RN) pantoprazole (ProtoNix) EC tablet 40 mg 40 mg, oral, Daily, First dose on Sat06/12/24 at 0900, Do not crush, chew, or split. * 0851 (Given - Provider: Raquel Gabriel RN) * 0907 (Given - Provider: Shirley Carvajal RN) * 0837 (Given - Provider: Shirley Carvajal RN) polyethylene glycol (Glycolax, Miralax) packet 17 g 17 g, oral, Daily, First dose on Sat06/12/24 at 0900 * 0855 (Not Given - Provider: Raquel Gabriel RN - Reason: Patient/family refused) * 0907 (Not Given - Provider: Shirley Carvajal RN - Reason: Patient/family refused) * 0842 (Not Given - Provider: Shirley Carvajal RN - Reason: Patient/family refused) sennosides-docusate sodium (Judy-Colace) 8.6-50 mg per tablet 2 tablet 2 tablet, oral, 2 times daily, First dose on Sat06/12/24 at 0900, Bowel Regimen - for prevention ofconstipation Hold for loose stools * 0855 (Not Given - Provider: Raquel Gabriel RN - Reason: Patient/family refused) * 204 (Not Given - Provider: Jayna Perry RN - Reason: Patient/family refused) * 0907 (Not Given - Provider: Shirley Carvajal RN - Reason: Patient/family refused) * 203 (Not Given - Provider: Jayna Perry RN - Reason: Patient/family refused) * 0842 (Not Given - Provider: Shirley Carvajal RN - Reason: Patient/family refused) * 2100 (Due) SUMAtriptan (Imitrex) tablet 50 mg (COMPLETED) 50 mg, oral, Once, On Sat06/12/24 at 1600, For 1 dose, May repeat dose once in 2 hours if no relief. Do not exceed 200 mg in 24 hours. * 1644 (Given - Provider: Raquel Gabriel RN) topiramate (Topamax) tablet 25 mg 25 mg, oral, 2 times daily, First dose on Sat06/13/24 at 0945 * 1109 (Given - Provider: Shirley Carvajal RN) * 2020 (Given - Provider: Jayna Perry RN) * 0837 (Given - Provider: Shirley Carvajal RN) * 2100 (Due) Medication Order50 lidocaine 4 % patch 1 patch 1 patch, transdermal, Administer over 12 Hours, Daily PRN, back pain, Starting on Sat06/12/24 at 0207, Apply to back. Patch will remain on for 12 hours, then removed for [address] patch directly over any surgical incisions or wounds. melatonin tablet 10 mg 10 mg, oral, Nightly PRN, sleep, Starting on Sat06/12/24 at 0124 * 2034 (Given - Provider: Jayna Perry RN) oxyCODONE (Roxicodone) immediate release tablet 10 mg (COMPLETED) 10 mg, oral, Every 4 hours PRN, pain severe (7-10), first line, Starting on Sat06/12/24 at 0117, For 6 doses, If ordered PRN for pain, nurse is permitted to administer this medication for higher painscores based on patient preference? Yes * 0330 (Given - Provider: Meri Molina RN) * 0851 (Given - Provider: Raquel Gabriel RN) * 1307 (Given - Provider: Raquel Gabriel RN) * 1743 (Given - Provider: Raquel Gabriel RN) * 2159 (Given - Provider: Jayna Perry RN) * 0239 (Given - Provider: Jayna Perry RN) oxyCODONE (Roxicodone) immediate release tablet 10 mg (COMPLETED) 10 mg, oral, Every 4 hours PRN, pain severe (7-10), first line, Starting on Sat06/13/24 at 0431, For 6 doses, If ordered PRN for pain, nurse is permitted to administer this medication for higher painscores based on patient preference? Yes * 0642 (Given - Provider: Jayna Perry RN) * 1112 (Given - Provider: Shirley Carvajal RN) * 1521 (Given - Provider: Shirley Carvajal RN) * 2019 (Given - Provider: Jayna Perry RN) * 0021 (Given - Provider: Jayna Perry RN) * 0433 (Given - Provider: Jayna Perry RN) oxyCODONE (Roxicodone) immediate release tablet 5 mg 5 mg, oral, Every 4 hours PRN, pain moderate (4-6), first line, Starting on Sat06/12/24 at 0116, For 6 doses, If ordered PRN for pain, nurse is permitted to administer this medication for higher painscores based on patient preference? Yes * 0837 (Given - Provider: Shirley Carvajal RN) SUMAtriptan (Imitrex) tablet 50 mg 50 mg, oral, Every 2 hour PRN, migraine, Starting on Sat06/12/24 at 1749, May repeat dose once in 2hours if no relief. Do not exceed 200 mg in 24 hours. zolpidem (Ambien) tablet 5 mg 5 mg, oral, Nightly PRN, sleep, Starting on 06/13/24 at 1529 * 2020 (Given - Provider: Jayna Perry RN) Medication Order06/16/// HYDROmorphone (DILAUDID) injection 1 mg (COMPLETED) 1 mg, Intramuscular, ONCE, 1 dose, On Shira 06/18/24 at 1900 * 1840 (Given - Provider: Monalisa Dan, DARSHAN) Ketorolac (TORADOL) injection 30 mg (COMPLETED) 30 mg, Intramuscular, ONCE, 1 dose, On Shira 06/18/24 at 1900 * 1841 (Given - Provider: Monalisa Dan, DARSHAN) Medication Order// Cyclobenzaprine (FLEXERIL) tablet 10 mg (COMPLETED) 10 mg, Oral, ONCE, 1 dose, On 06/20/24 at 1430 * 1404 (Given - Provider: Rakesh Walker, DARSHAN) HYDROmorphone (DILAUDID) injection 1 mg (COMPLETED) 1 mg, Subcutaneous, ONCE, 1 dose, On 06/20/24 at 1400 * 1404 (Given - Provider: Rakesh Walker, DARSHAN) ondansetron (ZOFRAN-ODT) disintegrating tablet 4 mg (COMPLETED) 4 mg, Oral, ONCE, 1 dose, On 06/20/24 at 1430 * 1404 (Given - Provider: Rakesh Walker RN) Medication Order//08/2024 gadoterate meglumine (Dotarem) 0.5 mmol/mL contrast injection 20 mL (COMPLETED) 20 mL, intravenous, Once in imaging, Starting on 06/28/24 at 0019, For 1 dose, Administer undiluted as rapid I.V. bolus injection * 0018 (Given - Provider: Wendi Cabral) ketorolac (Toradol) injection 15 mg (COMPLETED) 15 mg, intravenous, Once, On 06/28/24 at 0050, For 1 dose * 005 (Given - Provider: Jean Tariq RN) LORazepam (Ativan) tablet 1 mg (COMPLETED) 1 mg, oral, Once, On 06/27/24 at 2245, For 1 dose * 225 (Given - Provider: Jean Tariq RN) methocarbamol (Robaxin) tablet 1,000 mg (COMPLETED) 1,000 mg, oral, Once, On 06/27/24 at 2205, For 1 dose * 222 (Given - Provider: Abbie Almendarez LPN) morphine injection 4 mg (COMPLETED) 4 mg, intravenous, Once, On 06/28/24 at 0150, For 1 dose * 0157 (Given - Provider: Jean Tariq RN) oxyCODONE (Roxicodone) immediate release tablet 5 mg (COMPLETED) 5 mg, oral, Once, On 06/27/24 at 2205, For 1 dose, If ordered PRN for pain, nurse is permitted toadminister this medication for higher pain scores based on patient preference? Yes * 2222 (Given - Provider: Abbie Almendarez LPN) Medication Order// lidocaine 4 % patch 1 patch 1 patch, transdermal, Administer over 12 Hours, Once, On Sat07/06/24 at 2350, For 1 dose, Apply to back. Patch will remain on for 12 hours, then removed for [address] patch directly overany surgical incisions or wounds. * 2355 (Not Given - Provider: Jessica Hemphill RN - Reason: Other - Comment: patient did not want) methocarbamol (Robaxin) tablet 1,000 mg (COMPLETED) 1,000 mg, oral, Once, On Sat07/06/24 at 2350, For 1 dose * 2357 (Given - Provider: Jerad Ceja RN) Medication Order08/16/// HYDROmorphone (DILAUDID) injection 0.5 mg (COMPLETED) 0.5 mg, IntraMUSCular, ONCE, 1 dose, On Sat08/18/24 at 1540, If oral and IV narcotics ordered, use oral first and only use IV if oral is ineffective or cannot take oral. Do Not give oral and IV within 1 hour of each other unless specifically ordered. * 1542 (Given - Provider: Rebecca Vance, DARSHAN) orphenadrine (NORFLEX) injection 60 mg (COMPLETED) 60 mg, IntraMUSCular, ONCE, 1 dose, On Sat08/18/24 at 1540 * 1543 (Given - Provider: Rebecca Vance, DARSHAN) Medication Order08/18/// dexAMETHasone (DECADRON) tablet 8 mg (COMPLETED) 8 mg, Oral, ONCE, 1 dose, On Sat08/20/24 at 1824 * 182 (Given - Provider: Carlos Eduardo Kim RN) HYDROmorphone HCl PF (DILAUDID) injection 0.5 mg (COMPLETED) 0.5 mg, IntraMUSCular, ONCE, 1 dose, On Shira 08/20/24 at 1816, If oral and IV narcotics ordered, use oral first and only use IV if oral is ineffective or cannot take oral. Do Not give oral and IV within 1 hour of each other unless specifically ordered. * 182 (Given - Provider: Carlos Eduardo Kim RN) HYDROmorphone HCl PF (DILAUDID) injection 0.5 mg (COMPLETED) 0.5 mg, IntraMUSCular, ONCE, 1 dose, On Shira 08/20/24 at 1925, If oral and IV narcotics ordered, use oral first and only use IV if oral is ineffective or cannot take oral. Do Not give oral and IV within 1 hour of each other unless specifically ordered. * 193 (Given - Provider: Sherley Garcia RN) ondansetron (ZOFRAN-ODT) disintegrating tablet 4 mg (COMPLETED) 4 mg, Oral, ONCE, 1 dose, On Sat08/20/24 at 1816 * 1828 (Given - Provider: Carlos Eduardo Kim RN) oxyCODONE (ROXICODONE) immediate release tablet 5 mg (COMPLETED) 5 mg, Oral, Once, 1 dose, On Sat08/20/24 at 2118 * 2126 (Given - Provider: Sherley Garcia RN) Medication Order// dexAMETHasone (DECADRON) injection 10 mg (COMPLETED) 10 mg, IntraVENous, ONCE, On Sat08/21/24 at 1308, For 1 dose * 1346 (Given - Provider: Carmen Sierra RN) LORazepam (ATIVAN) injection 1 mg (COMPLETED) 1 mg, IntraVENous, ONCE, 1 dose, On Sat08/21/24 at 1803, Immediately prior to intravenous use, lorazepam Injection must be diluted with at least an equal volume of compatible solution (NS or D5W). * 1809 (Given - Provider: Alen Houston RN) morphine (PF) injection 4 mg (COMPLETED) 4 mg, IntraVENous, ONCE, 1 dose, On Sat08/21/24 at 1308 * 1346 (Given - Provider: Carmen Sierra RN) morphine sulfate (PF) injection 4 mg (COMPLETED) 4 mg, IntraVENous, ONCE, 1 dose, On Sat08/21/24 at 1558 * 1612 (Given - Provider: Alen Houston RN) oxyCODONE-acetaminophen (PERCOCET) 5-325 MG per tablet 1 tablet (COMPLETED) 1 tablet, Oral, ONCE, 1 dose, On Sat08/21/24 at 1857, Maximum dose of acetaminophen is 4000 mg fromall sources in 24 hours. * 1902 (Given - Provider: Alen Houston RN) Medication Order// gadoteridol (PROHANCE) injection 20 mL (COMPLETED) 20 mL, IntraVENous, IMG ONCE PRN, 1 dose, Starting on Sat08/21/24 at 1749, Until Sat08/21/24 at 1749, Other * 1749 (Given - Provider: Patricia Brady) Medication Order08/24///06/2024 HYDROmorphone (DILAUDID) injection 0.5 mg (COMPLETED) 0.5 mg, IntraMUSCular, ONCE, 1 dose, On Sat08/26/24 at 1600, If oral and IV narcotics ordered, use oral first and only use IV if oral is ineffective or cannot take oral. Do Not give oral and IV within1 hour of each other unless specifically ordered. * 1613 (Given - Provider: Jose Enrique Ace LPN) orphenadrine (NORFLEX) injection 60 mg (COMPLETED) 60 mg, IntraMUSCular, ONCE, 1 dose, On Sat08/26/24 at 1600 * 1612 (Given - Provider: Jose Enrique Ace LPN) Medication Order/ HYDROmorphone (Dilaudid) injection 0.5 mg (COMPLETED) 0.5 mg, intramuscular, Once, On Sat08/28/24 at 2135, For 1 dose * 2142 (Given - Provider: Dax Che RN) HYDROmorphone (Dilaudid) injection 0.5 mg (COMPLETED) 0.5 mg, intravenous, Once, On 08/29/24 at 0305, For 1 dose * 0307 (Given - Provider: Dax Che RN) HYDROmorphone (Dilaudid) injection 0.6 mg (COMPLETED) 0.6 mg, intravenous, Once, On 08/29/24 at 0130, For 1 dose * 0134 (Given - Provider: Dax Che RN) HYDROmorphone (Dilaudid) injection 1 mg (COMPLETED) 1 mg, intramuscular, Once, On Sat08/28/24 at 2235, For 1 dose * 2241 (Given - Provider: Laura Bradley LPN) methocarbamol (Robaxin) injection 1,000 mg (COMPLETED) 1,000 mg, intravenous, Administer over 5 Minutes, Once, On Sat08/28/24 at 2235, For 1 dose * 2243 (Given - Provider: Marie Osorio RN) orphenadrine (Norflex) injection 60 mg (COMPLETED) 60 mg, intravenous, Once, On 08/29/24 at 0015, For 1 dose * 0024 (Given - Provider: Dax Che RN) Medication Order///09/2024 LORazepam (Ativan) injection 1 mg 1 mg, intravenous, Every 30 min PRN, anxiety, Starting on 08/29/24 at 0126, For 2 doses, Prior toMRI * 0146 (Given - Provider: Dax Che RN) Medication Order// dexAMETHasone (DECADRON) tablet 8 mg (COMPLETED) 8 mg, Oral, ONCE, 1 dose, On Sat08/30/24 at 1930 * 1934 (Given - Provider: Jorge Garcia RN) HYDROmorphone HCl PF (DILAUDID) injection 0.5 mg (COMPLETED) 0.5 mg, IntraMUSCular, ONCE, 1 dose, On Sat08/30/24 at 1930, If oral and IV narcotics ordered, use oral first and only use IV if oral is ineffective or cannot take oral. Do Not give oral and IV within1 hour of each other unless specifically ordered. * 193 (Given - Provider: Jorge Garcia RN) Medication Order// orphenadrine (NORFLEX) injection 60 mg (COMPLETED) 60 mg, IntraMUSCular, ONCE, 1 dose, On Sat09/01/24 at 1503 * 1511 (Given - Provider: Joan Berman RN) oxyCODONE-acetaminophen (PERCOCET) 5-325 MG per tablet 1 tablet (COMPLETED) 1 tablet, Oral, ONCE, 1 dose, On Tu09/01/24 at 1507, Maximum dose of acetaminophen is 4000 mg fromall sources in 24 hours. * 1511 (Given - Provider: Joan Berman RN) Medication Order// orphenadrine (NORFLEX) injection 60 mg (COMPLETED) 60 mg, IntraMUSCular, ONCE, 1 dose, On 09/05/24 at 2331 * 2357 (Given - Provider: Geraldine Salazar RN) oxyCODONE-acetaminophen (PERCOCET) 5-325 MG per tablet 1 tablet (COMPLETED) 1 tablet, Oral, ONCE, 1 dose, On 09/05/24 at 2331, Maximum dose of acetaminophen is 4000 mg fromall sources in 24 hours. * 235 (Given - Provider: Geraldine Salazar RN) predniSONE (DELTASONE) tablet 60 mg (COMPLETED) 60 mg, Oral, ONCE, 1 dose, On 09/05/24 at 2331 * 2358 (Given - Provider: Geraldine Salazar RN) Medication Order// cyclobenzaprine (FLEXERIL) tablet 10 mg (COMPLETED) 10 mg, Oral, NOW, 1 dose, On 09/13/24 at 1940 * 1956 (Given - Provider: Fifi Mulligan RN) diazePAM (VALIUM) tablet 5 mg (COMPLETED) 5 mg, Oral, ONCE, 1 dose, On 09/13/24 at 1940 * 1957 (Given - Provider: Fifi Mulligan RN) ketorolac (TORADOL) injection 30 mg 30 mg, IntraMUSCular, ONCE, 1 dose, On Sat09/13/24 at 1940, Do not administer for more than 5 days. * 1958 (Not Given - Provider: Fifi Mulligan RN - Reason: Patient/family refused) lidocaine 4 % external patch 1 patch 1 patch, TransDERmal, Administer over 12 Hours, NOW, On Sat09/13/24 at 1940, For 1 dose, Apply patch to back pain. The bit setter's recommendations for the number of patches that can be applied within a 24-hour period varies from 1 to 4 times daily and the duration of application varies from 8 to24 hours; refer to the bit setter's labeling for product-specific recommendations. * 1956 (Not Given - Provider: Fifi Mulligan RN - Reason: Patient/family refused) oxyCODONE (ROXICODONE) immediate release tablet 5 mg (COMPLETED) 5 mg, Oral, ONCE, 1 dose, On 09/13/24 at 0 * 2043 (Given - Provider: Fifi Mulligan RN) Medication Order// morphine sulfate (PF) injection 4 mg (COMPLETED) 4 mg, IntraMUSCular, ONCE, 1 dose, On 09/14/24 at 1708, If oral and IV narcotics ordered, use oral first and only use IV if oral is ineffective or cannot take oral. Do Not give oral and IV within 1 hour of each other unless specifically ordered. * 1725 (Given - Provider: Dalton Segundo RN) ondansetron (ZOFRAN-ODT) disintegrating tablet 4 mg (COMPLETED) 4 mg, Oral, ONCE, 1 dose, On Sat09/14/24 at 1708 * 1724 (Given - Provider: Dalton Segundo RN) Medication Order09/14/// morphine sulfate (PF) injection 4 mg (COMPLETED) 4 mg, IntraMUSCular, ONCE, 1 dose, On Sat09/16/24 at 1822, If oral and IV narcotics ordered, use oral first and only use IV if oral is ineffective or cannot take oral. Do Not give oral and IV within 1 hour of each other unless specifically ordered. * 1828 (Given - Provider: Jose Enrique Ace LPN) Medication Order///11/2024 oxyCODONE-acetaminophen (PERCOCET) 5-325 MG per tablet 1 tablet (COMPLETED) 1 tablet, Oral, ONCE, 1 dose, On Sat09/30/24 at 1422, Maximum dose of acetaminophen is 4000 mg from all sources in 24 hours. * 1427 (Given - Provider: Jose Enrique Ace LPN) Medication Order// morphine sulfate (PF) injection 4 mg (COMPLETED) 4 mg, IntraMUSCular, ONCE, 1 dose, On Sat10/05/24 at 1309 * 1313 (Given - Provider: Pati Decker RN) tiZANidine (ZANAFLEX) tablet 4 mg (COMPLETED) 4 mg, Oral, ONCE, 1 dose, On Sat10/05/24 at 1309 * 1313 (Given - Provider: Pati Decker RN) Medication Order// morphine (INFUMORPH) 10 mg, sodium chloride (PF) 0.9 % 50 mL (CANCELED) Intrathecal, at 60 mL/hr, Administer over 1 Minutes, ONCE, On Shira 10/08/24 at 1130, For 1 dose, Intra-op * 1215 (Given - Provider: Cornell Holland RN - Comment: 200 mcg/mL given total volume 1ML) Medication Order// lidocaine 1 % injection 5 mL 5 mL, IntraDERmal, ONCE PRN, 1 dose, Starting on Shira 10/08/24 at 1200, Until Discontinued, procedure, to be PF lidocaine PF 1 % injection (CANCELED) PRN, Starting on Shira 10/08/24 at 1215, Until Shira 10/08/24 at 1220, Intra-op * 1215 (Given - Provider: Michel Calero, DO - Comment: INJECTION; INTRATHECAL PAIN PUMP TRIAL) naloxone 0.4 mg in 10 mL sodium chloride syringe IntraVENous, PRN, Opioid Reversal, PRN if respiratory rate is less than 6 breaths per min and patient is difficult to arouse., Starting on Shira 10/08/24 at 1200, For 24 hours, Notify provider STAT. Mix9 mL of sodium chloride 0.9% with 0.4 mg (1 mL) of naloxone (NARCAN) in 10 mL syringe. (Note: dilution is 0.04 mg/mL) Give 0.08 mg (2 mL of special dilution), slow IV push, repeat up to 0.4 mg (10 mL) or until patient is responsive to physical stimulation and respiratory rate is equal to or greaterthan 6 breaths/min. Continue to observe, if no response within 3 minutes of administration of 0.4 mg (10 mL) total, repeat dose (0.4 mg as administered previously). Concentration 0.04 mg/mL, ondansetron (ZOFRAN) injection 4 mg(Linked Group 1) 4 mg, IntraVENous, EVERY 6 HOURS PRN, Starting on Sat10/08/24 at 1200, Until Sat10/09/24 at 1159, Nausea, Vomiting, Administer if oral route cannot be used., ondansetron (ZOFRAN-ODT) disintegrating tablet 4 mg(Linked Group 1) 4 mg, Oral, EVERY 6 HOURS PRN, Starting on Sat10/08/24 at 1200, Until Sat10/09/24 at 1159, Nausea, Vomiting, sodium chloride (PF) 0.9 % injection 20 mL 20 mL, Other, ONCE PRN, 1 dose, Starting on Sat10/08/24 at 1200, Until Discontinued, procedure, to be PF Order Group 1: ondansetron (ZOFRAN-ODT) disintegrating tablet 4 mgJump to med 4 mg, Oral, EVERY 6 HOURS PRN, Starting on Shira 10/08/24 at 1200, Until Sat10/09/24 at 1159, Nausea, Vomiting, Or ondansetron (ZOFRAN) injection 4 mgJump to med 4 mg, IntraVENous, EVERY 6 HOURS PRN, Starting on Shira 10/08/24 at 1200, Until Sat10/09/24 at 1159, Nausea, Vomiting, Administer if oral route cannot be used., Medication Order/// morphine sulfate (PF) injection 4 mg (COMPLETED) 4 mg, IntraMUSCular, ONCE, 1 dose, On Sat10/14/24 at 1142 * 1150 (Given - Provider: Daysi Turner, DARSHAN) orphenadrine (NORFLEX) injection 60 mg (COMPLETED) 60 mg, IntraMUSCular, ONCE, 1 dose, On Sat10/14/24 at 1142 * 1150 (Given - Provider: Daysi Turner RN) Medication Order///05/2024 ketorolac (TORADOL) injection 30 mg (COMPLETED) 30 mg, IntraMUSCular, ONCE, 1 dose, On 10/24/24 at 2300, Do not administer for more than 5 days. * 2317 (Given - Provider: Lucia Lal RN) lidocaine 4 % external patch 1 patch 1 patch, TransDERmal, Administer over 12 Hours, ONCE, On 10/24/24 at 2300, For 1 dose, Substituted for Lidocaine 5% Patch. The bit setter's recommendations for the number of patches that can be applied within a 24-hour period varies from 1 to 4 times daily and the duration of application variesfrom 8 to 24 hours; refer to the bit setter's labeling for product-specific recommendations. * 2316 (Patch Applied - Provider: Lucia Lal RN) * 1116 (Due: Patch Removed - Provider: Lucia Lal RN) orphenadrine (NORFLEX) injection 60 mg (COMPLETED) 60 mg, IntraMUSCular, ONCE, 1 dose, On 10/24/24 at 2300 * 2317 (Given - Provider: Lucia Lal RN) oxyCODONE-acetaminophen (PERCOCET) 5-325 MG per tablet 2 tablet (COMPLETED) 2 tablet, Oral, ONCE, 1 dose, On Sat10/24/24 at 2300, Maximum dose of acetaminophen is 4000 mg from all sources in 24 hours. * 2316 (Given - Provider: Lucia Lal RN) Medication Order///08/2024 morphine sulfate (PF) injection 4 mg (COMPLETED) 4 mg, IntraVENous, ONCE, 1 dose, On Sat10/28/24 at 2030, If oral and IV narcotics ordered, use oral first and only use IV if oral is ineffective or cannot take oral. Do Not give oral and IV within 1 hour of each other unless specifically ordered. * 2037 (Given - Provider: Kerry Marie RN) Medication Order///11/2024 morphine sulfate (PF) injection 4 mg (COMPLETED) 4 mg, IntraMUSCular, ONCE, 1 dose, On Sat10/31/24 at 1329, If oral and IV narcotics ordered, use oral first and only use IV if oral is ineffective or cannot take oral. Do Not give oral and IV within 1hour of each other unless specifically ordered. * 1335 (Given - Provider: David Oconnell RN) ondansetron (ZOFRAN-ODT) disintegrating tablet 4 mg (COMPLETED) 4 mg, Oral, ONCE, 1 dose, On Sat10/31/24 at 1329 * 1336 (Given - Provider: David Oconnell RN) Medication Order/// cyclobenzaprine (Flexeril) tablet 10 mg (COMPLETED) 10 mg, oral, Once, On Sat11/10/24 at 0525, For 1 dose * 0530 (Given - Provider: Yahaira Santoyo LPN) HYDROmorphone (Dilaudid) injection 0.2 mg (COMPLETED) 0.2 mg, intravenous, Once, On Sat11/10/24 at 0045, For 1 dose * 0051 (Given - Provider: Aminata Foreman RN) HYDROmorphone (Dilaudid) injection 0.2 mg (COMPLETED) 0.2 mg, intravenous, Once, On Sat11/10/24 at 0225, For 1 dose * 0224 (Given - Provider: Aminata Foreman RN) HYDROmorphone (Dilaudid) injection 0.2 mg (COMPLETED) 0.2 mg, intravenous, Once, On Sat11/10/24 at 0515, For 1 dose * 0524 (Given - Provider: Marcos Boone, DARSHAN) oxyCODONE (Roxicodone) immediate release tablet 10 mg (COMPLETED) 10 mg, oral, Once, On Sat11/10/24 at 0525, For 1 dose, If ordered PRN for pain, nurse is permitted to administer this medication for higher pain scores based on patient preference? Yes * 05 (Given - Provider: Yahaira Santoyo LPN) oxyCODONE (Roxicodone) immediate release tablet 5 mg (COMPLETED) 5 mg, oral, Once, On Sat11/10/24 at 0600, For 1 dose, If ordered PRN for pain, nurse is permitted to administer this medication for higher pain scores based on patient preference? Yes * 0603 (Given - Provider: Marcos Boone RN) Medication Order11/25///07/2024 ceFAZolin (ANCEF) 2,000 mg in sterile water 20 mL IV syringe (COMPLETED) 2,000 mg, IntraVENous, AIR BAG BUILDER TO O.R., 1 dose, On Sat11/27/24 at 0830, Antimicrobial Indications: Surgical Prophylaxis, Administer within 1 hour prior to incision. Recommend to repeat in 3-4 hours after initial dose if still intra- op. Administer over 5 mins. Reconstitute 2 g vial with 20 mL SterileWater. Withdraw entire contents., Pre-op (day of surgery) * 1008 (New Bag - Provider: Natty Griffiths, HOT BLASTER - PLASTIC PRESS MOLDER) sodium chloride flush 0.9 % injection 5-40 mL 5-40 mL, IntraVENous, EVERY 12 HOURS SCHEDULED (2 times per day), First dose on Sat11/27/24 at 2100,Until Discontinued, For Line Patency: Peripheral IV = 5 mL; Midline or Central Line = 10 mL/lumen. If following IV push medication, administer flush at same rate as the IV push. Flush volume is determined by type of infusion therapy being given. For non-viscous solutions use: Peripheral IV = 5 mL Midline or Central Line = 10 mL/lumen For viscous solutions (i.e. blood components, parenteral nutrition, contrast media, or after obtaining blood sample) use: Peripheral IV = 10 mL Midline or Central Line = 20 mL/lumen, PACU only * 2100 (Due) Medication Order509//07/2024 0.9 % sodium chloride infusion (CANCELED) IntraVENous, at 5-250 mL/hr, PRN, if patient receiving piggyback infusions and maintenance fluids are not ordered, Starting on Sat11/27/24 at 0806, For piggyback infusion, administer at same rate as piggyback for a total of 25 mL. Enter 25 mL into dose field and piggyback rate into rate field of order. If piggyback is infusing at a rate less than 100 mL/hr, enter 25 mL into dose field and 100 mL/hr into rate field of order., Pre-op (day of surgery) * 0913 (New Bag - Provider: Catalina Joyce RN) 0.9 % sodium chloride infusion IntraVENous, at 100 mL/hr, PRN, If patient receiving piggyback infusions without ordered maintenance IV fluids or with frequent/long duration piggyback infusions, Starting on Sat11/27/24 at 1234, Administer at the same rate as the piggyback being infused., PACU only BUPivacaine (PF) (MARCAINE) 0.5 % injection (CANCELED) PRN, Starting on Sat11/27/24 at 1043, Until Sat11/27/24 at 1234, Intra-op * 1043 (Given - Provider: Michel Calero DO) BUPivacaine 0.75% in dextrose 8.25% (intrathecal) (SENSORCAINE) 0.75-8.25 % injection (CANCELED) PRN, Starting on Sat11/27/24 at 1044, Until Sat11/27/24 at 1234, Intra-op * 1044 (Given - Provider: Michel Calero DO - Comment: in intrathecial pain pump) diphenhydrAMINE (BENADRYL) injection 12.5 mg 12.5 mg, IntraVENous, ONCE PRN, 1 dose, Starting on Sat11/27/24 at 1234, Until Discontinued, Itching, PACU only fentaNYL (SUBLIMAZE) injection 50 mcg 50 mcg, IntraVENous, EVERY 10 MIN PRN, 4 doses, Starting on Sat11/27/24 at 1234, Until Discontinued,Pain Moderate (4-6) OR per patient request for pain score (7- 10), Pain Severe (7-10), Phase I - Initial therapy for moderate pain., PACU only * 1238 (Given - Provider: Gurjit Andrade, DARSHAN) * 1250 (Given - Provider: Gurjit Andrade RN) * 1302 (Given - Provider: Gurjit Andrade RN) lidocaine-EPINEPHrine 1 %-[id number] injection (CANCELED) PRN, Starting on Sat11/27/24 at 1043, Until Sat11/27/24 at 1234, Intra-op * 1043 (Given - Provider: Michel Calero DO) meperidine (DEMEROL) injection 12.5 mg 12.5 mg, IntraVENous, ONCE PRN, 1 dose, Starting on Sat11/27/24 at 1234, Until Discontinued, Shivering, Shivering,, PACU only metoclopramide (REGLAN) injection 10 mg 10 mg, IntraVENous, ONCE PRN, 1 dose, Starting on Sat11/27/24 at 1234, Until Discontinued, Nausea, Secondary antiemetic therapy if not given intraoperatively., PACU only naloxone 0.4 mg in 10 mL sodium chloride syringe IntraVENous, PRN, Opioid Reversal, Starting on Sat11/27/24 at 1234, PRN if respiratory rate is less than 6/min and patient is difficult to arouse then notify physician STAT. Mix 9 mL of sodium chloride 0.9% with 0.4 mg (1 mL) of naloxone (NARCAN) in 10 mL syringe. (Note: dilution is 0.04 mg/mL) Give0.08 mg (2 mL of special dilution), slow IV push, repeat up to 0.4 mg (10 mL) or until patient is responsive to physical stimulation and respiratory rate is equal to or greater than 6 breaths/min. Continue to observe, if no response within 3 minutes of administration of 0.4 mg (10 mL) total, repeatdose (0.4 mg as administered previously). Concentration 0.04 mg/mL, PACU only ondansetron (ZOFRAN) injection 4 mg 4 mg, IntraVENous, ONCE PRN, 1 dose, Starting on Sat11/27/24 at 1234, Until Discontinued, Nausea, Initial antiemetic therapy., PACU only oxyCODONE (ROXICODONE) immediate release tablet 5 mg (COMPLETED) 5 mg, Oral, ONCE PRN, 1 dose, Starting on Sat11/27/24 at 1234, Until Sat11/27/24 at 1338, Pain Moderate (4-6) OR per patient request for pain score (7-10), Pain Severe (7-10), PHASE II, PACU only * 1338 (Given - Provider: Darcie Benavides RN) sod chloride IRR soln 0.9 % irrigation (CANCELED) CONTINUOUS PRN, Starting on Sat11/27/24 at 1042, Intra-op * 1030 (New Bag - Provider: Michel Calero, DO - Comment: prn on sterile field) * 1234 (Due: Dose Ending - Provider: Automatic Transfer Provider - Comment: [Order ends at this time.Document the following action when infusion is complete: Stopped]) sodium chloride flush 0.9 % injection 5-40 mL 5-40 mL, IntraVENous, PRN, Starting on Sat11/27/24 at 1234, Until Discontinued, Line Care, After every IV line use, For Line Patency: Peripheral IV = 5 mL; Midline or Central Line = 10 mL/lumen. If following IV push medication, administer flush at same rate as the IV push. Flush volume is determinedby type of infusion therapy being given. For non-viscous solutions use: Peripheral IV = 5 mL Midline or Central Line = 10 mL/lumen For viscous solutions (i.e. blood components, parenteral nutrition, contrast media, or after obtaining blood sample) use: Peripheral IV = 10 mL Midline or Central Line = 20 mL/lumen, PACU only Medication Order/ morphine injection syringe 8 mg (COMPLETED) 8 mg, Subcutaneous, NOW, 1 dose, On Sat01/18/25 at 1945 * 1946 (Given - Provider: Dejan Alonso RN) Medication Order HYDROmorphone (DILAUDID) injection syringe 1 mg (COMPLETED) 1 mg, Subcutaneous, NOW, 1 dose, On Shira 01/28/25 at 1615 * 1614 (Given - Provider: Mayra Franco) Ordered Prescriptions (unrec ognized section and content) PrescriptionSigDispensedRefillsStart DateEnd Date cyclobenzaprine (FLEXERIL) 10 MG tablet Take 1 tablet by mouth 3 times daily as needed for Muscle spasms 21 tablet / ibuprofen (ADVIL;MOTRIN) 600 MG tablet Take 1 tablet by mouth 3 times daily as needed for Pain 30 tablet rescriptionSigDispense QuantityRefillsLast FilledStart DateEnd Date oxyCODONE (ROXICODONE) 5 MG immediate release tablet Indications:Failed back syndromeTake 2 tablets by mouth every 8 hours as needed for Pain for up to 3 days. Max Daily Amount: 30 mg 18 tablet /03/2024 ibuprofen (ADVIL;MOTRIN) 600 MG tablet Take 1 tablet by mouth 3 times daily as needed for Pain 30 tablet 08/20/2024 methylPREDNISolone (MEDROL, AYDEE,) 4 MG tablet Take by mouth. 1 kit 08/20/2024PrescriptionSigDispense QuantityRefillsLast FilledStart DateEnd Date cephALEXin (KEFLEX) 500 MG capsule Take 2 capsules by mouth 2 times daily for 5 days 20 capsule /06/2024PrescriptionSigDispense QuantityRefillsLast FilledStart Date End Date methylPREDNISolone (MEDROL, AYDEE,) 4 MG tablet Take by mouth. 1 kit 08/30/2024PrescriptionSigDispense QuantityRefillsLast FilledStart DateEnd Date acetaminophen (TYLENOL) 500 MG tablet Take 1 tablet by mouth 4 times daily as needed for Pain 120 tablet 7/ methocarbamol (ROBAXIN) 750 MG tablet Take 1 tablet by mouth 4 times daily for 10 days 40 tablet / predniSONE (DELTASONE) 50 MG tablet Take 1 tablet by mouth daily for 5 days 5 tablet /PrescriptionSigDispense QuantityRefillsLast FilledStart Date End Date tiZANidine (ZANAFLEX) 4 MG tablet Take 1 tablet by mouth every 6 hours as needed (back pain) 30 tablet 10/05/2024PrescriptionSigDispense QuantityRefillsLast FilledStart DateEnd Date cyclobenzaprine (FLEXERIL) 10 MG tablet Take 1 tablet by mouth 3 times daily as needed for Muscle spasms 30 tablet FOR RECORDS PERTAINING TO PATIENTS WHO ARE [...] BE BASED ON THE PRIMARY CLINICAL RECORDS. [facility]. provides no warranty or guarantee of the accuracy or completeness of information in this document.
== END 2025-03-23 21:40 | disposition home or self-care (01) ==
PROVIDERS: Emergency Provider Emergency Medicine; PCP Nurse Practitioner Family
DX: M54.50 Low back pain, unspecified (principal); G89.29 Other chronic pain; M54.16 Radiculopathy, lumbar region; F17.200 Nicotine dependence, unspecified, uncomplicated
CPT/HCPCS: 96372; 99284; J1171; J1885; J2360; J7512